=== PATIENT | female | born 1945 | race Caucasian/White ===

== ENCOUNTER 2022-09-02 09:27 | Outpatient (OUT) | payer MEDICARE, SELFPAY ==
--- NOTE | 2022-09-02 09:43 | XR_ITS ---
The [address] [address] Patient Name: ZACHARY MAYNARD MRN: [id number] date: 1945 Sex: F Assigned Patient Location: [facility] Current Patient Location: [facility] Accession/Order Number: [id number] Exam Date: 09/02/2022 09:45 Report Date: 09/02/2022 10:34 At the request of: ADINA BUNCH Procedure: XR ribs BI min 4V w CXR1V EXAMINATION: XR ribs BI min 4V w CXR1V HISTORY: Pleurodynia R07.81 ; acute posterior left rib pain since falling 2 days ago COMPARISON: XR chest 07/14/2020 FINDINGS: LUNGS: No significant pulmonary parenchymal abnormalities. PLEURA: No pneumothorax, effusion, or pleural thickening. MEDIASTINUM: No visible mass or adenopathy. CARDIAC: No cardiomegaly or cardiac silhouette abnormality. RIBS: Normal. No significant arthropathy or acute abnormality. OTHER: Negative. IMPRESSION: 1. Hyperexpanded lungs suggestive of mild COPD. 2. No appreciable acute cardiopulmonary process. 3. No visible rib fracture. Electronically authenticated by: RENATA GAYTAN Date: 09/02/2022 10:34
== END 2022-09-02 09:28 | disposition home or self-care (01) ==
LOC: RAD 09:30
PROVIDERS: PCP Family Medicine; Visit Provider Family Medicine
DX: R07.81 Pleurodynia (principal); J98.4 Other disorders of lung
CPT/HCPCS: 71111

== ENCOUNTER 2022-10-17 07:20 | Outpatient (OUT) | payer MEDICARE, SELFPAY ==
[2022-10-17 08:15] LABS: Estimated Average Glucose 114 mg/dL; Glycohemoglobin A1C 5.6 % (4.5-6.2)
[2022-10-17 08:22] LABS: Free Thyroxine Index 2.95 (1.30-4.50); Thyroid Stimulating Hormone 2.013 uIU/mL (0.358-3.740)
[2022-10-17 08:31] LABS: Basophils Percent Auto 0.5 % (0.2-2.0); Eosinophils Absolute Auto 0.2 10^3/uL (0.0-0.7); Eosinophils Percent Auto 2.5 % (0.9-7.0); Hematocrit 31.5 % (36.0-48.0); Hemoglobin 10.2 g/dL (12.0-16.0); Immature Granulocytes Abs Auto 0.06 10^3/uL (0.00-0.03); Immature Granulocytes Pct Auto 0.7 % (0.0-0.5); Lymphocytes Absolute Auto 2.2 10^3/uL (1.2-3.8); Lymphocytes Percent Auto 26.9 % (20.5-60.0); Mean Corpuscular HGB Conc 32.4 g/dL (29.9-35.2); Mean Corpuscular Hemoglobin 28.5 pg (26.7-34.0); Mean Platelet Volume 10.1 fL (9.5-13.5); Monocytes Absolute Auto 0.5 10^3/uL (0.3-0.8); Monocytes Percent Auto 6.3 % (1.7-12.0); Neutrophils Absolute Auto 5.2 10^3/uL (1.4-6.5); Neutrophils Percent Auto 63.1 % (43.0-75.0); Platelet Count 283 10^3/uL (150-450); Red Blood Count 3.58 10^6/uL (4.20-5.40); Red Cell Distribution Width 16.9 % (11.0-15.0); White Blood Count 8.2 10^3/uL (4.0-11.0)
== END 2022-10-17 07:21 | disposition home or self-care (01) ==
PROVIDERS: PCP Family Medicine; Visit Provider Family Medicine
DX: E11.9 Type 2 diabetes mellitus without complications (principal); R73.09 Other abnormal glucose; D64.9 Anemia, unspecified
CPT/HCPCS: 36415; 82728; 83036; 83540; 84436; 84443; 84479; 85025

== ENCOUNTER 2022-10-25 10:09 | Outpatient (OUT) | payer MEDICARE, SELFPAY ==
[2022-10-25 11:08] LABS: Alanine Aminotransferase 19 U/L (14-59); Albumin Level 3.3 g/dL (3.4-5.0); Alkaline Phosphatase 75 U/L (46-116); Anion Gap 10.5; Aspartate Amino Transferase 14 U/L (15-37); BUN Creatinine Ratio 23.5; Bilirubin Total 0.5 mg/dL (0.2-1.0); Calcium 9.2 mg/dL (8.5-10.1); Carbon Dioxide 31.1 mmol/L (21.0-32.0); Chloride 100 mmol/L (98-107); Estimated GFR (African America >60 (>=60); Estimated GFR (Non-African Ame 55 (>=60); Globulin 3.2 g/dL; Glucose 96 mg/dL (74-106); Potassium 3.6 mmol/L (3.5-5.1); Sodium 138 mmol/L (136-145); Total Protein 6.5 g/dL (6.4-8.2)
[2022-10-25 11:09] LABS: INR 0.94; Partial Thromboplastin Time 28.1 sec (22.3-36.2)
[2022-10-25 11:36] LABS: Thyroid Stimulating Hormone 1.247 uIU/mL (0.358-3.740)
[2022-10-25 12:01] LABS: Basophils Absolute Auto 0.1 10^3/uL (0.0-0.1); Basophils Percent Auto 0.7 % (0.2-2.0); Eosinophils Absolute Auto 0.2 10^3/uL (0.0-0.7); Eosinophils Percent Auto 2.1 % (0.9-7.0); Hematocrit 34.6 % (36.0-48.0); Immature Granulocytes Abs Auto 0.07 10^3/uL (0.00-0.03); Immature Granulocytes Pct Auto 0.8 % (0.0-0.5); Lymphocytes Percent Auto 21.6 % (20.5-60.0); Mean Corpuscular HGB Conc 31.8 g/dL (29.9-35.2); Mean Corpuscular Hemoglobin 28.6 pg (26.7-34.0); Mean Corpuscular Volume 90.1 fL (81.0-99.0); Mean Platelet Volume 11.2 fL (9.5-13.5); Monocytes Absolute Auto 0.8 10^3/uL (0.3-0.8); Monocytes Percent Auto 8.8 % (1.7-12.0); Neutrophils Absolute Auto 6.1 10^3/uL (1.4-6.5); Platelet Count 317 10^3/uL (150-450); Red Blood Count 3.84 10^6/uL (4.20-5.40); Red Cell Distribution Width 17.5 % (11.0-15.0); White Blood Count 9.2 10^3/uL (4.0-11.0)
[2022-10-25 12:23] LABS: Estimated Average Glucose 117 mg/dL; Glycohemoglobin A1C 5.7 % (4.5-6.2)
== END 2022-10-25 10:10 | disposition home or self-care (01) ==
LOC: LAB 10:11
PROVIDERS: PCP Family Medicine; Visit Provider Family Medicine
DX: R23.8 Other skin changes (principal)
CPT/HCPCS: 36415; 80053; 82728; 83036; 83540; 84439; 84443; 85002; 85025; 85610; 85730

== ENCOUNTER 2023-05-14 08:50 | Outpatient (RCR) | payer MEDICARE, SELFPAY | END 2023-05-21 11:30 | disposition home or self-care (01) | LOC: OT 08:50 | PROVIDERS: PCP Family Medicine; Visit Provider Orthopaedic Surgery | DX: Z98.890 Other specified postprocedural states (principal) | CPT/HCPCS: 97018; 97110; 97140; 97165; 97760 ==

== ENCOUNTER 2023-11-06 07:41 | Outpatient (RCR) | payer MEDICARE, SELFPAY | END 2023-11-07 15:47 | disposition home or self-care (01) | LOC: PT 07:41 | PROVIDERS: PCP Family Medicine; Visit Provider Family Medicine | DX: R42 Dizziness and giddiness (principal) | CPT/HCPCS: 97163 ==

== ENCOUNTER 2023-11-18 18:14 | Emergency (ER) | payer MEDICARE, SELFPAY ==
[2023-11-18 18:27] VITALS: BP 134/72; PULSE 71; TEMP 37.2; O2SAT 93; BMI 28.8
--- NOTE | 2023-11-18 19:09 | ECG_ITS ---
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
--- NOTE | 2023-11-18 19:19 | XR_ITS ---
The [address] [address] Patient Name: ZACHARY MAYNARD MRN: [id number] date: 1945 Sex: F Assigned Patient Location: ER Current Patient Location: ER Accession/Order Number: [id number] Exam Date: 11/18/2023 19:45 Report Date: 11/18/2023 20:51 At the request of: GABBY RYAN Procedure: XR chest 1V EXAMINATION: XR chest 1V, , 11/18/2023 7:45 PM EDT INDICATION: weak HISTORY: Ordering Provider Reason for Exam: weak Technologist Note: Additional: COMPARISON: None. TECHNIQUE: Chest x-ray: One view. FINDINGS: No pneumothorax, pleural effusion or focal airspace consolidation. Heart is normal in size. Bony thorax is unremarkable. XR/XR chest 1V IMPRESSION: No acute cardiopulmonary process. Electronically authenticated by: CHELE AYALA Date: 11/18/2023 20:51
--- NOTE | 2023-11-18 19:20 | ED.GENADUL1 ---
HPI HPI - General Adult General Chief complaint: Nausea/Vomiting/Diarrhea Stated complaint: Dizziness, General Weakness Time Seen by Provider: 11/18/23 18:35 Source: patient Mode of arrival: walk-in History of Present Illness HPI narrative: 78-year-old female presents to the emergency department for not feeling well. She states her whole body hurts and she has been weak and she threw up this morning. She has a very mild posterior headache, no trauma and no fever. No syncope or palpitations and she does not complain to me of chest pain or abdominal pain. No dysuria or hematuria. She has not really eaten or drank anything today. Related Data Previous Rx's ?Medication ?Instructions ?Recorded ondansetron 4 mg disintegrating 4 mg PO Q6H PRN nausea and 11/18/23 tablet vomiting #20 tabs Allergies Allergy/AdvReac Type Severity Reaction Status Date / Time meperidine [From Demerol] AdvReac Severe Anaphylaxis Verified 11/18/23 18:27 Opioid HPI Opioid Management Most Recent Opioid Data: No Data to Display Review of Systems ROS Narrative A ten point review of systems is negative except as noted above. PFSH PFSH Social History Little interest or pleasure in doing things: not at all Feeling down, depressed, or hopeless: not at all Exam Narrative Exam Narrative: Nurses note and vital signs reviewed and patient is not hypoxic. General: The patient appears in no apparent distress. She seems to prefer to keep her eyes closed. Skin: Warm, dry, no pallor noted. There is no rash noted. Head: Normocephalic, atraumatic Eye: Normal conjunctiva, no drainage Ears, Nose, Mouth, and Throat: oral mucosa is moist. Nares patent. Cardiovascular: Regular Rate and Rhythm Respiratory: Patient is in no distress, no accessory muscle use, lungs are clear to auscultation, no wheezing, rales or rhonchi Back: non-tender GI: Soft and no apparent tenderness Musculoskeletal: The patient has no evidence of calf tenderness, no pitting edema, symmetrical pulses noted bilaterally Neurological: A&O, normal speech Psychiatric: Cooperative Constitutional Vital Signs, click to edit/add: Last Vital Signs Temp 98.9 F 11/18/23 18:27 Pulse 124 H 11/18/23 21:10 Resp 17 11/18/23 21:10 BP 132/102 H 11/18/23 21:10 Pulse Ox 94 L 11/18/23 21:10 O2 Del Method Room Air 11/18/23 21:10 Course Vital Signs Vital signs: Vital Signs Temperature 98.9 F 11/18/23 18:27 Pulse Rate 71 11/18/23 18:27 Respiratory Rate 18 11/18/23 18:27 Blood Pressure 134/72 11/18/23 18:27 Pulse Oximetry 93 L 11/18/23 18:27 Oxygen Delivery Method Room Air 11/18/23 18:27 Temperature 98.9 F 11/18/23 18:27 Pulse Rate 124 H 11/18/23 21:10 Respiratory Rate 17 11/18/23 21:10 Blood Pressure 132/102 H 11/18/23 21:10 Pulse Oximetry 94 L 11/18/23 21:10 Oxygen Delivery Method Room Air 11/18/23 21:10 Medical Decision Making MDM Narrative Medical decision making narrative: The patient's laboratory workup is negative. COVID test negative and she is feeling much better after being given some IV fluids and IV Zofran. She is tolerating p.o. liquids and some food and feels good to go home. She had some brief episodes of fast heartbeat and she was advised follow-up with her PCP regarding that issue. They seem to be asymptomatic. Treatment diagnosis and follow-up were discussed with the patient and her family. Differential Diagnosis Differential Diagnosis: Dehydration, acute kidney injury, COVID, viral gastroenteritis Lab Data Lab results reviewed: Yes I reviewed the patient's lab results Labs: Lab Results 11/18/23 11/18/23 11/18/23 Range/Units 19:30 19:33 19:35 WBC 14.6 H (4.0-11.0) 10^3/uL RBC 3.89 L (4.20-5.40) 10^6/uL Hgb 10.9 L (12.0-16.0) g/dL Hct 34.4 L (36.0-48.0) % MCV 88.4 (81.0-99.0) fL MCH 28.0 (26.7-34.0) pg MCHC 31.7 (29.9-35.2) g/dL RDW 15.9 H (11.0-15.0) % Plt Count 237 (150-450) 10^3/uL MPV 10.7 (9.5-13.5) fL Neut % (Auto) 80.0 H (43.0-75.0) % Lymph % (Auto) 11.1 L (20.5-60.0) % [place] % (Auto) 5.9 (1.7-12.0) % Eos % (Auto) 0.9 (0.9-7.0) % Baso % (Auto) 0.3 (0.2-2.0) % Neut # (Auto) 11.7 H (1.4-6.5) 10^3/uL Lymph # (Auto) 1.6 (1.2-3.8) 10^3/uL [place] # (Auto) 0.9 H (0.3-0.8) 10^3/uL Eos # (Auto) 0.1 (0.0-0.7) 10^3/uL Baso # (Auto) 0.1 (0.0-0.1) 10^3/uL Abs Immat Gran (auto) 0.27 H (0.00-0.03) 10^3/uL Imm/Tot Granulo (auto) 1.8 H (0.0-0.5) % Sodium 137 (136-145) mmol/L Potassium 3.7 (3.5-5.1) mmol/L Chloride 98 (98-107) mmol/L Carbon Dioxide 31.6 (21.0-32.0) mmol/L Anion Gap 11.1 BUN 31.0 H (7.0-18.0) mg/dL Creatinine 1.25 H (0.55-1.02) mg/dL Est GFR ( Amer) 50 L (>=60) Est GFR (Non-Af Amer) 41 L (>=60) BUN/Creatinine Ratio 24.8 Glucose 102 (74-106) mg/dL Calcium 9.4 (8.5-10.1) mg/dL Total Bilirubin 0.8 (0.2-1.0) mg/dL AST 9 L (15-37) U/L ALT 13 L (14-59) U/L Alkaline Phosphatase 93 (46-116) U/L Troponin I High Sens 8.8 (4.0-51.3) pg/mL Total Protein 6.1 L (6.4-8.2) g/dL Albumin 3.1 L (3.4-5.0) g/dL Globulin 3.0 g/dL Albumin/Globulin Ratio 1.0 Urine Color Lt. yellow (YELLOW) Urine Clarity Clear (CLEAR) Urine pH 7.0 (5.0-9.0) Ur Specific [place] 1.020 (1.005-1.025) Urine Protein Negative (NEG/TRACE) mg/dL Urine Glucose (UA) >=1000 A (NEGATIVE) mg/dL Urine Ketones Negative (NEGATIVE) mg/dL Urine Occult Blood Negative (NEGATIVE) Urine Nitrite Negative (NEGATIVE) Urine Bilirubin Negative (NEGATIVE) Urine Urobilinogen 0.2 (0.2-1.0) EU/dL Ur Leukocyte Esterase Negative (NEGATIVE) Urine RBC None seen (0-2) #/HPF Urine WBC 0-2 A (NONE SEEN) #/HPF Ur Squamous Epith Cells Rare (NONE/RARE) #/LPF Urine Crystals None seen (None Seen) #/HPF Urine Bacteria Trace A (NONE SEEN) #/HPF Urine Casts None seen (NONE SEEN) #/LPF Urine Mucus None seen (NONE SEEN) SARS-CoV-2 Ag (CV2AG) Negative (NEGATIVE) Imaging Data Chest x-ray: Radiologist's impression: ITS Impressions Chest X-Ray 11/18/23 19:19 IMPRESSION: No acute cardiopulmonary process. Electronically authenticated by: CHELE AYALA Date: 11/18/2023 20:51 ECG Data Attestation: I personally reviewed and interpreted this ECG as follows: (First EKG on my interpretation shows sinus rhythm with rate of 72 and occasional PAC. Second EKG showed tachycardia with a rate of 116) Discharge Plan Discharge Chief Complaint: Nausea/Vomiting/Diarrhea Clinical Impression: Nausea & vomiting Patient Disposition: Home, Self-Care Time of Disposition Decision: 22:23 Condition: Good Mode of Transportation: Private Vehicle Prescriptions / Home Meds: New ondansetron 4 mg tablet,disintegrating 4 mg PO Q6H PRN (Reason: nausea and vomiting) Qty: 20 0RF Print Language: Nepali Instructions: Acute Nausea and Vomiting (ED) Additional Instructions: Follow-up with Dr. Langley regarding the short episodes of fast heartbeat. Referrals: Velasquez Langley MD [Primary Care Provider] - 1 week
[2023-11-18] MEDS: ONDANSETRON PF 4 MG/2 ML VIAL IV (19:41)
[2023-11-18] MEDS: 0.9 % SODIUM CHLORIDE 500 ML IV ×2 (19:41→21:41)
[2023-11-18 20:07] LABS: Basophils Absolute Auto 0.1 10^3/uL (0.0-0.1); Basophils Percent Auto 0.3 % (0.2-2.0); Eosinophils Absolute Auto 0.1 10^3/uL (0.0-0.7); Eosinophils Percent Auto 0.9 % (0.9-7.0); Hematocrit 34.4 % (36.0-48.0); Hemoglobin 10.9 g/dL (12.0-16.0); Immature Granulocytes Abs Auto 0.27 10^3/uL (0.00-0.03); Immature Granulocytes Pct Auto 1.8 % (0.0-0.5); Lymphocytes Absolute Auto 1.6 10^3/uL (1.2-3.8); Lymphocytes Percent Auto 11.1 % (20.5-60.0); Mean Corpuscular HGB Conc 31.7 g/dL (29.9-35.2); Mean Corpuscular Volume 88.4 fL (81.0-99.0); Mean Platelet Volume 10.7 fL (9.5-13.5); Monocytes Absolute Auto 0.9 10^3/uL (0.3-0.8); Monocytes Percent Auto 5.9 % (1.7-12.0); Neutrophils Absolute Auto 11.7 10^3/uL (1.4-6.5); Platelet Count 237 10^3/uL (150-450); Red Blood Count 3.89 10^6/uL (4.20-5.40); Red Cell Distribution Width 15.9 % (11.0-15.0); White Blood Count 14.6 10^3/uL (4.0-11.0)
[2023-11-18 20:15] LABS: Alanine Aminotransferase 13 U/L (14-59); Albumin Level 3.1 g/dL (3.4-5.0); Alkaline Phosphatase 93 U/L (46-116); Anion Gap 11.1; Aspartate Amino Transferase 9 U/L (15-37); BUN Creatinine Ratio 24.8; Bilirubin Total 0.8 mg/dL (0.2-1.0); Calcium 9.4 mg/dL (8.5-10.1); Carbon Dioxide 31.6 mmol/L (21.0-32.0); Chloride 98 mmol/L (98-107); Estimated GFR (African America 50 (>=60); Estimated GFR (Non-African Ame 41 (>=60); Glucose 102 mg/dL (74-106); Potassium 3.7 mmol/L (3.5-5.1); Sodium 137 mmol/L (136-145); Total Protein 6.1 g/dL (6.4-8.2); Troponin I High Sensitivity 8.8 pg/mL (4.0-51.3)
--- NOTE | 2023-11-18 20:21 | PC.NURSE ---
Pt is a diabetic. Pt has own blood glucose monitor. Pt checked blood glucose and result 109.
[2023-11-18 20:24] LABS: Internal Control Within Normal Limits; SARS-CoV-2 Ag NEGATIVE (NEGATIVE)
[2023-11-18 20:26] LABS: Bilirubin Urine NEGATIVE (NEGATIVE); Blood Urine NEGATIVE (NEGATIVE); Clarity Urine CLEAR (CLEAR); Color Urine LT. YELLOW (YELLOW); Glucose Urine UA >=1000 mg/dL (NEGATIVE); Ketones Urine NEGATIVE (NEGATIVE); Leukocyte Esterase Urine NEGATIVE (NEGATIVE); Nitrite Urine NEGATIVE (NEGATIVE); Protein Urine NEGATIVE (NEG/TRACE); Urobilinogen Urine 0.2 EU/dL (0.2-1.0)
[2023-11-18 20:50] LABS: Squamous Epithelial Cell Urine RARE #/LPF (NONE/RARE)
[2023-11-18 20:51] LABS: Bacteria Urine TRACE #/HPF (NONE SEEN); Cast Seen? NONE SEEN #/LPF (NONE SEEN); Crystals Seen? None Seen #/HPF (None Seen); Mucus Urine NONE SEEN (NONE SEEN); RBC Urine NONE SEEN #/HPF (0-2); WBC Urine 0-2 #/HPF (NONE SEEN)
--- NOTE | 2023-11-18 21:06 | ECG_ITS ---
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
[2023-11-18 21:10] VITALS: BP 132/102; PULSE 124; O2SAT 94
[2023-11-18 22:33] VITALS: BP 130/99
== END 2023-11-18 22:50 | disposition home or self-care (01) ==
PROVIDERS: Emergency Medicine; Emergency Provider Emergency Medicine; PCP Family Medicine
DX: R11.2 Nausea with vomiting, unspecified (principal); Z20.822 Contact with and (suspected) exposure to COVID-19
CPT/HCPCS: 36415; 71045; 80053; 81001; 84484; 85025; 87811; 93005; 96374; 99285; J2405

== ENCOUNTER 2023-11-19 14:12 | Outpatient (OUT) | payer MEDICARE, SELFPAY | END 2023-11-19 14:13 | disposition home or self-care (01) | LOC: CARD 14:15 | PROVIDERS: PCP Family Medicine; Visit Provider Family Medicine | DX: R00.0 Tachycardia, unspecified (principal) | CPT/HCPCS: 93246 ==

== ENCOUNTER 2023-11-23 15:16 | Emergency (ER) | payer MEDICARE, SELFPAY ==
[2023-11-23 15:17] VITALS: BP 167/81; PULSE 76; TEMP 37.3; O2SAT 98; BMI 61.7
--- NOTE | 2023-11-23 15:22 | XR_ITS ---
The [address] [address] Patient Name: ZACHARY MAYNARD MRN: [id number] date: 1945 Sex: F Assigned Patient Location: ER Current Patient Location: ER Accession/Order Number: [id number] Exam Date: 11/23/2023 15:41 Report Date: 11/23/2023 16:53 At the request of: WENDY DWYER Procedure: XR chest 2V EXAM: XR chest 2V , 11/23/2023 HISTORY: cough, influenza COMPARISON: X-ray of the chest from 11/18/2023 TECHNIQUE: X-rays of the chest, frontal and lateral views in upright position. FINDINGS: Mild enlargement of the cardiac silhouette. Moderate atherosclerotic calcification of the aortic arch. Bilateral basal atelectasis. No focal consolidation or pulmonary edema. Right lower lobe nodular density, likely nipple shadow. Mild degenerative changes thoracic spine. No acute osseous findings. Multiple overlying monitoring leads and wires. XR/XR chest 2V IMPRESSION: No focal consolidation or pulmonary edema. Electronically authenticated by: RUFINA FENG Date: 11/23/2023 16:53
--- NOTE | 2023-11-23 15:22 | ECG_ITS ---
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
--- NOTE | 2023-11-23 15:24 | ED.GENADUL1 ---
HPI HPI - General Adult General Chief complaint: Upper Respiratory Infection Stated complaint: FLU Time Seen by Provider: 11/23/23 15:19 Source: patient Mode of arrival: ambulance Limitations: no limitations History of Present Illness HPI narrative: 78-year-old female presents to the ER via EMS for evaluation of cough, rib pain and generalized weakness. Patient states she began her illness 1 week ago, had a test on Friday that was positive for influenza and has been taking a Zithromax prescription without relief. She denies nausea vomiting or diarrhea. Patient has a harsh nonproductive cough and rib pain present with coughing. Patient suspects dehydration with generalized weakness as she has decreased p.o. intake as she is just not thirsty or hungry. Patient wearing a security monitor states she had a labile heart rate but does not remember the specifics of why they put it on her. She denies any blood thinner use. Patient sitting up speaking in full sentences but appears generally fatigued. Chest discomfort is only present with coughing which she describes as rib pain. Related Data Home Medications ?Medication ?Instructions ?Recorded ?Confirmed albuterol sulfate 90 mcg/actuation inhalation 11/23/23 aerosol inhaler azithromycin 250 mg tablet mg 11/23/23 benzonatate 200 mg capsule mg PO 11/23/23 doxycycline hyclate 100 mg capsule mg 11/23/23 ezetimibe 10 mg tablet mg 11/23/23 hydrochlorothiazide 25 mg tablet mg 11/23/23 hydroxyzine HCl 25 mg tablet mg 11/23/23 meclizine 25 mg tablet mg 11/23/23 ropinirole 0.5 mg tablet mg 11/23/23 tiotropium bromide 18 mcg capsule inhalation 11/23/23 with inhalation device Previous Rx's ?Medication ?Instructions ?Recorded ondansetron 4 mg disintegrating 4 mg PO Q6H PRN nausea and 11/18/23 tablet vomiting #20 tabs Allergies Allergy/AdvReac Type Severity Reaction Status Date / Time meperidine [From Demerol] AdvReac Severe Anaphylaxis Verified 11/23/23 15:22 Opioid HPI Opioid Management Most Recent Opioid Data: Last APR Pain Assessment 11/23/23 15:48 Review of Systems ROS Constitutional Reports: fever Ears, nose, mouth, and throat Reports: nasal congestion; Denies: throat pain or neck pain Cardiovascular Reports: chest pain (Only with coughing) Respiratory Reports: shortness of breath, cough and chest congestion Gastrointestinal Denies: abdominal pain, nausea, vomiting or diarrhea Genitourinary Denies: painful urination Musculoskeletal Denies: back pain, neck pain or extremity pain Integumentary/Breast Denies: rash or itching Neurological Denies: headache or numbness in extremities Psychiatric Denies: anxiety or mood swings Endocrine Denies: excessive urination Hematologic/Lymphatic Denies: easy bruising PFSH PFSH Social History Little interest or pleasure in doing things: not at all Feeling down, depressed, or hopeless: not at all Exam Narrative Exam Narrative: Nurses notes and vital signs reviewed and patient is not hypoxic. General: The patient appears well, but generally fatigued. Patient is resting comfortably on cart. Skin: Warm, dry, no pallor noted. No evidence of rash Head: Normocephalic, atraumatic Neck: Supple, trachea mid-line, no tenderness, no lymphadenopathy Eye: Pupils are equal, round and reactive to light, EOMI Ears, Nose, Mouth, and Throat: TM are clear, normal light reflex, oral mucosa is moist, no posterior oropharynx erythema or hypertrophy, uvula is mid-line postnasal drainage Cardiovascular: Regular Rate and Rhythm Respiratory: Patient is in no distress, no accessory muscle use, lungs are clear to auscultation, no wheezing, rales or rhonchi. Chest Wall: no tenderness cardiac monitoring device noted mid chest Back: non-tender, no CVA tenderness Musculoskeletal: normal ROM, no tenderness, no swelling GI: Normal bowel sounds, no tenderness to palpation, no masses appreciated. No rebound, guarding, or rigidity noted. Neurological: A&O x4 Psychiatric: Cooperative Constitutional Vital Signs, click to edit/add: Last Vital Signs Temp 99.1 F 11/23/23 15:17 Pulse 76 11/23/23 15:17 Resp 24 H 11/23/23 15:17 BP 167/81 H 11/23/23 15:17 Pulse Ox 98 11/23/23 15:17 O2 Del Method Room Air 11/23/23 15:17 Course Vital Signs Vital signs: Vital Signs Temperature 99.1 F 11/23/23 15:17 Pulse Rate 76 11/23/23 15:17 Respiratory Rate 24 H 11/23/23 15:17 Blood Pressure 167/81 H 11/23/23 15:17 Pulse Oximetry 98 11/23/23 15:17 Oxygen Delivery Method Room Air 11/23/23 15:17 Temperature 99.1 F 11/23/23 15:17 Pulse Rate 76 11/23/23 15:17 Respiratory Rate 24 H 11/23/23 15:17 Blood Pressure 167/81 H 11/23/23 15:17 Pulse Oximetry 98 11/23/23 15:17 Oxygen Delivery Method Room Air 11/23/23 15:17 Medical Decision Making MDM Narrative Medical decision making narrative: Patient presents 7 days into upper respiratory influenza-like illness, patient concerned with dehydration as she has not been eating or drinking secondary to her illness. Patient has been taking Zithromax per PCP. She denies any history of pulmonary disease. Patient admits that she herself did not want to come to the hospital she lives with her and surrounding family encouraged her to get evaluated with weakness. Patient reevaluated, cough has lessened since medication. She reports feeling more comfortable, clinically she appears more alert and relaxed. She is taking potassium supplement. Family states she has been drinking mostly Sprite at home. We discussed trying Gatorade or electrolyte solution and small but frequent quantities. Patient chest x-ray without evidence of infiltrate. Her heart rate has maintained stable during her stay. She is finishing her second liter of IV fluids and will be given a dose of Zofran as she finishes her potassium pending providing us a urine sample. Will be given a p.o. challenge to follow. anemia likely dehydration, pt denies any dark stool of blood per rectum. Pt ambulated well to bathroom for urine sample. reports feeling better after fluids. ready for DC home. pt taking po fluids here as well per RN. The patient is to followup with primary care physician in next 2-3 days or to return to the emergency department should any of the signs or symptoms worsen or new symptoms develop. Patient had questions answered. The patient agrees with the following Diagnosis and Treatment plan and the patient will be discharged home. SHARED APC VISIT, PHYSICIAN ATTESTATION: [id number] I performed a substantive part of the MDM during the patient?s E/M visit. I personally evaluated and examined the patient. I personally made or approved the documented management plan and acknowledge its risk of complications. My (EKG/X-Ray/US/CT) interpretation . Management/test interpretation discussed with . Medical Records Medical records reviewed: Yes I reviewed the patient's medical records Medical records narrative: Previous visit and laboratory studies. Lab Data Lab results reviewed: Yes I reviewed the patient's lab results Labs: Lab Results 11/23/23 11/23/23 Range/Units 16:07 17:22 WBC 8.5 (4.0-11.0) 10^3/uL RBC 3.41 L (4.20-5.40) 10^6/uL Hgb 9.7 L (12.0-16.0) g/dL Hct 30.2 L (36.0-48.0) % MCV 88.6 (81.0-99.0) fL MCH 28.4 (26.7-34.0) pg MCHC 32.1 (29.9-35.2) g/dL RDW 15.8 H (11.0-15.0) % Plt Count 239 (150-450) 10^3/uL MPV 10.2 (9.5-13.5) fL Neut % (Auto) 63.1 (43.0-75.0) % Lymph % (Auto) 23.4 (20.5-60.0) % [place] % (Auto) 9.2 (1.7-12.0) % Eos % (Auto) 2.6 (0.9-7.0) % Baso % (Auto) 0.6 (0.2-2.0) % Neut # (Auto) 5.3 (1.4-6.5) 10^3/uL Lymph # (Auto) 2.0 (1.2-3.8) 10^3/uL [place] # (Auto) 0.8 (0.3-0.8) 10^3/uL Eos # (Auto) 0.2 (0.0-0.7) 10^3/uL Baso # (Auto) 0.1 (0.0-0.1) 10^3/uL Abs Immat Gran (auto) 0.09 H (0.00-0.03) 10^3/uL Imm/Tot Granulo (auto) 1.1 H (0.0-0.5) % Sodium 136 (136-145) mmol/L Potassium 2.9 L* (3.5-5.1) mmol/L Chloride 100 (98-107) mmol/L Carbon Dioxide 33.4 H (21.0-32.0) mmol/L Anion Gap 5.5 BUN 25.0 H (7.0-18.0) mg/dL Creatinine 1.41 H (0.55-1.02) mg/dL Est GFR ( Amer) 43 L (>=60) Est GFR (Non-Af Amer) 36 L (>=60) BUN/Creatinine Ratio 17.7 Glucose 105 (74-106) mg/dL Lactate 1.0 (0.4-2.0) mmol/L Calcium 8.9 (8.5-10.1) mg/dL Total Bilirubin 0.6 (0.2-1.0) mg/dL AST 11 L (15-37) U/L ALT 16 (14-59) U/L Alkaline Phosphatase 82 (46-116) U/L Troponin I High Sens 8.5 (4.0-51.3) pg/mL NT-Pro-B Natriuret Pep 487.0 (<=1800.0) pg/mL Total Protein 5.8 L (6.4-8.2) g/dL Albumin 2.4 L (3.4-5.0) g/dL Globulin 3.4 g/dL Albumin/Globulin Ratio 0.7 Urine Color Lt. yellow (YELLOW) Urine Clarity Clear (CLEAR) Urine pH 6.0 (5.0-9.0) Ur Specific [place] 1.015 (1.005-1.025) Urine Protein Negative (NEG/TRACE) mg/dL Urine Glucose (UA) Negative (NEGATIVE) mg/dL Urine Ketones Negative (NEGATIVE) mg/dL Urine Occult Blood Negative (NEGATIVE) Urine Nitrite Negative (NEGATIVE) Urine Bilirubin Negative (NEGATIVE) Urine Urobilinogen 0.2 (0.2-1.0) EU/dL Ur Leukocyte Esterase Negative (NEGATIVE) Imaging Data Chest x-ray: Radiologist's impression: ITS Impressions Chest X-Ray 11/23/23 15:22 IMPRESSION: No focal consolidation or pulmonary edema. Electronically authenticated by: RUFINA FENG Date: 11/23/2023 16:53 ECG Data Attestation: I personally reviewed and interpreted this ECG as follows: Interpretation: EKG interpretation: Emergency Department physician interpretation, normal sinus rhythm 80, no ectopy, no ST segment elevation, normal axis. Discharge Plan Discharge Chief Complaint: Upper Respiratory Infection Clinical Impression: Influenza, Upper respiratory infection, Dehydration Patient Disposition: Home, Self-Care Time of Disposition Decision: 17:45 Condition: Good Prescriptions / Home Meds: No Action ondansetron 4 mg tablet,disintegrating 4 mg PO Q6H PRN (Reason: nausea and vomiting) Qty: 20 0RF doxycycline hyclate 100 mg capsule azithromycin 250 mg tablet benzonatate 200 mg capsule PO meclizine 25 mg tablet ropinirole 0.5 mg tablet hydroxyzine HCl 25 mg tablet hydrochlorothiazide 25 mg tablet albuterol sulfate 90 mcg/actuation HFA aerosol inhaler INHALATION ezetimibe 10 mg tablet tiotropium bromide 18 mcg capsule, w/inhalation device INHALATION Print Language: Upper Sorbian Instructions: Dehydration (ED) Referrals: Velasquez Langley MD [Primary Care Provider] - As soon as possible
--- OUTSIDE RECORDS SUMMARY | 2023-11-23 15:24 | XMS_ITS | CCD ---
Author Organization [facility] Care Team Providers Care Hot Car Operator Name Role Phone ADINA BUNCH Unavailable Unavailable DALTON, RACHAEL K Unavailable Unavailable ALTON, MICHELLE Unavailable Unavailable ALTON, MICHELLE Unavailable Unavailable Adina Bunch Primary Care Provider JUDIE, DUGLAS S Admitting Unavailable JUDIE, DUGLAS S Attending Unavailable ADINA BUNCH Primary Care Unavailable JAMISON GALO Consulting Unavailable JUDIE, DUGLAS S Consulting Unavailable ABEL RICHARD Consulting Unavailable CHIRRI, JIMMY Consulting Unavailable KENDRICK, VENITA Consulting Unavailable DEMETER, FLORY H Consulting Unavailable SANTACROCE, MIREILLE Consulting Unavailable JULIO C ., DR HOLDEN Admitting Unavailable HOY ., DR HOLDEN Attending Unavailable HOY ., DR HOLDEN Primary Care Unavailable HOY ., DR HOLDEN Consulting Unavailable Renata Gaytan Consulting Unavailable HOY ., DR HOLDEN Admitting Unavailable HOY ., DR HOLDEN Attending Unavailable HOY ., DR HOLDEN Primary Care Unavailable HOY ., DR HOLDEN Consulting Unavailable HOY ., DR HOLDEN Admitting Unavailable HOY ., DR HOLDEN Attending Unavailable HOY ., DR HOLDEN Primary Care Unavailable HOY ., DR HOLDEN Admitting Unavailable HOY ., DR HOLDEN Attending Unavailable HOY ., DR HOLDEN Primary Care Unavailable HOY ., DR HOLDEN Admitting Unavailable MINALY ., DR HODLEN Attending Unavailable MINALY ., DR HOLDEN Primary Care Unavailable MD Adina Bunch Primary Care Provider MD Anju Lees Attending Provider CURRY LOVING Attending Unavailable CURRY LOVING Attending Unavailable WENDY OCHOA Attending Unavailable CURRY LOVING Attending Unavailable DENISHA KELLY Attending Unavailable Freddy, Anju R Admitting Unavailable Freddy Anju R Attending Unavailable Adina Bunch Primary Care Unavailable Adina Bunch Primary Care Unavailable Calvshahram, Anju R Admitting Unavailable Freddy Anju R Attending Unavailable Adina Bunch Primary Care Unavailable Freddy, Anju R Admitting Unavailable Kathi Leesen R Attending Unavailable Allergies Allergy Classification Reported Allergen(s) Allergy Type Date of Onset Reaction(s) Facility (7 sources) Adhesive Tape; 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: [Adhesive tape] Propensity to adverse reactions to drug 4 Unknown Reaction, Rash [place], [place] (4 sources) Ciprofloxacin Drug Allergy 8 Vomiting [place] (1 source) Hmg-Coa Reductase Inhibitors (Statins) Propensity to adverse reactions to drug 8 [place] (4 sources) Meperidine Drug Allergy 8 Anaphylaxis [place] (4 sources) moxifloxacin Drug Allergy 8 [place]aphylaxis [place] (4 sources) Nalbuphine Drug Allergy 8 Unknown Reaction, Itching [place] (4 sources) Promethazine Drug Allergy 8 Unknown Reaction [place] (1 source) Sulfonamides (Antibiotic) Propensity to adverse reactions to drug 8 [place] (2 sources) black walnut pollen extract Drug Allergy 4 [facility] (2 sources) Ciprofloxacin Drug Allergy 4 [facility] (2 sources) Levamisole Drug Allergy 4 [facility] (2 sources) Meperidine Drug Allergy 4 [facility] (2 sources) moxifloxacin Drug Allergy 4 [facility] (2 sources) Nalbuphine Drug Allergy 4 [facility] (1 source) Sulfonamides (Antibiotic) Drug allergy (disorder) 7 [facility] (4 sources) Sulfacetamide; 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: [sulfacetamide] Drug Allergy 4 Unknown Reaction, Itching [facility] (4 sources) Sulfur; 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: [sulfur] Drug Allergy [address] [facility] (4 sources) Bteqwyh-QNQ-IeD Reductase Inhibitor; 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: [Kgkqpcz-MXP-MsH Reductase Inhibitor] Allergy to substance [address] [facility] (1 source) Ciprofloxacin Drug Allergy 4 [facility] (1 source) Meperidine Drug Allergy 4 [facility] (1 source) moxifloxacin Drug Allergy 4 [facility] (1 source) Nalbuphine Drug Allergy 4 [facility] (1 source) Promethazine Drug Allergy 4 [facility] Medications Current Medications Medication Drug Class(es) Dates Sig (Normalized) Sig (Original) acetaminophen 500 mg oral tablet (2 sources) Start: 04-17-2023 take 2 tablets by mouth every six hours Acetaminophen (Acetaminophen Extra Strength) 500 mg tablet Active 1000 MG PO Every 6 hours April 17, 2023 12:00am Start: 10-09-2019 acetaminophen (TYLENOL) tablet 650 mg acetaminophen 325 mg / butalbital 50 mg / caffeine 40 mg oral tablet (1 source) Barbiturate, Central Nervous System Stimulant, Methylxanthine Start: 10-10-2019 toacpcwlnl-tmpxmjxffwshz-ctd feine (FIORICET, ESGIC) per tablet 1 tablet [id number] 200 actuat albuterol 0.09 mg/actuat metered dose inhaler (3 sources) beta2-Adrenergi c Agonist Start: 04-08-2023 take 1 puff(s) by inhalation twice daily Albuterol Sulfate Active 2 PUFF INHALATION Twice daily April 08, 2023 12:00am Start: 04-08-2023 Albuterol Sulf ate Active INHALATION April 08, 2023 12:00am albuterol 0.833 mg/ml / ipratropium bromide 0.167 mg/ml inhalant solution (2 sources) Anticholinergic, beta2-Adrenergic Agonist Start: 10-11-2019 ipratropium-albuterol (DUONEB) nebulizer solution 1 ampule Start: 10-09-2019 End: 10-11-2019 1 ampule, Inhalation, EVERY 4 HOURS WHILE AWAKE, First dose on 10/09/19 at 1600 amLODIPine 10 mg oral tablet (5 sources) Dihydropyridine Calcium Channel Dodie Start: 06-29-2017 End: 10-10-2019 take 1 tablet by mouth once daily amLODIPine (NORVASC) 10 MG tablet Take 1 tablet by mouth daily 30 tablet 3 10/15/2019 Active aspirin 81 mg chewable tablet (2 sources) Platelet Aggregation Inhibitor, Nonsteroidal Anti-inflammatory Drug Start: 10-09-2019 take 1 tablet by mouth once daily aspirin 81 MG chewable tablet Take 1 tablet by mouth daily 30 tablet 3 10/16/2019 Active bisacodyl 10 mg rectal suppository (1 source) Stimulant Laxative Start: 10-16-2019 bisacodyl (DULCOLAX) suppository 10 mg calcium chloride 0.0014 meq/ml / potassium chloride 0.004 meq/ml / sodium chloride 0.103 meq/ml / sodium lactate 0.028 meq/ml injectable solution (1 source) Start: 10-09-2019 lactated ringers infusion diclofenac sodium 75 mg delayed release oral tablet (3 sources) Nonsteroidal Anti-inflammatory Drug Start: 04-08-2023 Diclofenac Sodium Active 75 MG PO .prn April 08, 2023 12:00am docusate sodium 100 mg oral capsule (2 sources) Start: 10-17-2019 End: 11-17-2019 take 2 capsules by mouth once daily docusate sodium (COLACE) 100 MG capsule Take 2 capsules by mouth daily 60 capsule 1 10/17/2019 11/17/2019 Active Start: 10-15-2019 docusate sodiu m (COLACE) capsule 200 mg empagliflozin 10 mg oral tablet (1 source) Sodium-Glucose Cotransporter 2 Inhibitor Start: 04-17-2023 take 1 tablet by mouth once daily Empagliflozin (Jardiance) 10 mg tablet Active 10 MG PO Daily April 17, 2023 12:00am if FSBS >200 0.4 ml enoxaparin sodium 100 mg/ml prefilled syringe (1 source) Low Molecular Weight Heparin Start: 10-09-2019 inject 40 mg by subcutaneous injection once daily 40 mg, Subcutaneous, DAILY, First dose on 10/09/19 at 1245 ezetimibe 10 mg oral tablet (5 sources) Dietary Cholesterol Absorption Inhibitor Start: 04-08-2023 take 1 tablet by mouth once daily at bedtime Ezetimibe (Zetia) 10 mg tablet Active 10 MG PO Daily at bedtime April 08, 2023 12:00am Start: 10-09-2019 take 10 mg by mouth once daily 10 mg, Oral, NIGHTLY, First dose on 10/09/19 at 2100 furosemide 20 mg oral tablet (3 sources) Loop Diuretic Start: 04-08-2023 take 20 mg by mouth once daily Furosemide Active 20 MG PO Daily April 08, 2023 12:00am glucagon (rdna) 1 mg injection (1 source) Antihypoglycemic Agent Start: 10-09-2019 glucago n (rDNA) injection 1 mg 150 ml glucose 50 mg/ml injection (3 sources) Start: 10-09-2019 dextrose 5 % solution Start: 10-09-2019 glucose (GLUTO SE) 40 % oral gel 15 g Start: 10-09-2019 dextrose 50 % IV solution hydrALAZINE hydrochloride 100 mg oral tablet (3 sources) Arteriolar Vasodilator Start: 10-15-2019 take 1 tablet by mouth every eight hours hydrALAZINE (APRESOLINE) 100 MG tablet Take 1 tablet by mouth every 8 hours 90 tablet 3 10/15/2019 Active Start: 10-12-2019 hydrALAZINE (A PRESOLINE) tablet 100 mg Start: 10-10-2019 hydrALAZINE (A PRESOLINE) injection 10 mg hydroCHLOROthiazide 25 mg oral tablet (3 sources) Thiazide Diuretic Start: 04-08-2023 take 25 mg by mouth once daily in the morning Hydrochlorothiazide Active 25 MG PO Every morning April 08, 2023 12:00am insulin lispro 100 unt/ml injectable solution (2 sources) Insulin Analog Start: 10-09-2019 insulin lispro (HUMALOG) injection vial 0-3 Units 1 ml ketorolac tromethamine 15 mg/ml cartridge (3 sources) Nonsteroidal Anti-inflammatory Drug, Cyclooxygenase Inhibitor Start: 10-15-2019 End: 10-20-2019 ketorolac (TORADOL) injection 15 mg Start: 10-09-2019 End: 10-11-2019 ketorolac (TORADOL) injectio n 15 mg labetalol (NORMODYNE;TRANDATE) injection syringe 10 mg (1 source) Start: 10-10-2019 labetalol (NORMODYNE;TRANDATE) injection syringe 10 mg lisinopril 40 mg oral tablet (4 sources) Angiotensin Converting Enzyme Inhibitor Start: 10-16-2019 take 1 tablet by mouth once daily lisinopril (PRINIVIL;ZESTRIL) 40 MG tablet Take 1 tablet by mouth daily 30 tablet 3 10/16/2019 Active Start: 10-11-2019 lisinopril (AK INIVIL;ZESTRIL) tablet 40 mg Start: 10-10-2019 End: 10-10-2019 lisinopril (PRINIVIL;ZESTRIL ) tablet 20 mg meclizine hydrochloride 25 mg oral tablet (7 sources) Antiemetic Start: 04-08-2023 take 25 mg by mouth once daily Meclizine Active 25 MG PO Daily April 08, 2023 12:00am Start: 10-15-2019 End: 10-25-2019 meclizine (ANTIVERT) tablet 12.5 mg Start: 10-09-2019 End: 10-09-2019 meclizine (ANTIVERT) tablet 25 mg 24 hr memantine hydrochloride 28 mg extended release oral capsule (3 sources) G-bowzgp-U-aspartate Receptor Antagonist Start: 04-08-2023 take 28 mg by mouth once daily in the morning Memantine Active 28 MG PO Every morning April 08, 2023 12:00am Start: 04-08-2023 Memantine Acti ve MG PO April 08, 2023 12:00am 24 hr metFORMIN hydrochloride 500 mg extended release oral tablet (3 sources) Biguanide Start: 04-08-2023 take 500 mg by mouth twice daily Metformin Active 500 MG PO Twice daily April 08, 2023 12:00am Start: 04-08-2023 Metformin Acti ve MG PO April 08, 2023 12:00am metoprolol tartrate 100 mg oral tablet (4 sources) beta-Adrenergic Dodie Start: 10-15-2019 take 1 tablet by mouth twice daily metoprolol tartrate (LOPRESSOR) 100 MG tablet Take 1 tablet by mouth 2 times daily 60 tablet 5 10/15/2019 Active Start: 10-09-2019 metoprolol tar trate (LOPRESSOR) tablet 100 mg Start: 10-09-2019 End: 10-09-2019 take 50 mg by mouth twice daily 50 mg, Oral, 2 TIMES D AILY, First dose on 10/09/19 at 1245 End: 10-15-2019 take 2 tablets by mouth twice daily metoprolol tartrate (LOPRESSOR) 50 MG tablet Take 100 mg by mouth 2 times daily 0 10/15/2019 Discontinued (REORDER) ondansetron (ZOFRAN-ODT) disintegrating tablet 4 mg (1 source) Start: 10-09-2019 ondansetron (ZOFRAN-ODT) disintegrating tablet 4 mg polyethylene glycol [id number] mg powder for oral solution (3 sources) Osmotic Laxative Start: 10-09-2019 End: 11-15-2019 take 17 g by mouth once daily polyethylene glycol (GLYCOLAX) 17 g packet Take 17 g by mouth daily 527 g 5 10/16/2019 11/15/2019 Active Potassium Chloride (2 sources) Start: 10-09-2019 potassium chlo ride (KLOR-CON M) extended release tablet 40 mEq Start: 10-09-2019 take 10 mL intravenous route every hour as needed 10 mEq, Intravenous, at 100 mL/hr, PRN, Potassium Replacement, Starting 10/09/19 at 1227 K Lab Replacement Action 3.1-3.5 10 mEq IVPB x 4 doses (40 mEq Total) 2.7-3.0 10 mEq IVPB x 6 doses (60 mEq Total) < 2.7 CALL PHYSICIAN and 10 mEq IVPB x 6 doses (60 mEq Total) Infuse at 10 mEq/hr. Repeat Potassium lab 1 hour after final administration. Not for use in patients with CrCl less than 30 mL/min. 3 ml sodium chloride 9 mg/ml injection (4 sources) Start: 10-15-2019 sodium chlorid e flush 0.9 % injection 10 mL Start: 10-11-2019 End: 10-11-2019 sodium chloride flush 0.9 % injection 10 mL Start: 10-09-2019 10 mL, Intrave nous, EVERY 12 HOURS SCHEDULED (2 times per day), First dose on 10/09/19 at 2100 Start: 10-09-2019 take 10 mL intraveno us route once as needed 10 mL, Intravenous, PRN, Line Care, After every IV line use, Starting 10/09/19 at 1227 spironolactone 100 mg oral tablet (4 sources) Aldosterone Antagonist Start: 10-11-2019 take 1 tablet by mouth once daily spironolactone (ALDACTONE) 100 MG tablet Take 1 tablet by mouth daily 30 tablet 3 10/16/2019 Active Start: 10-09-2019 End: 10-10-2019 spironolactone (ALDACTONE) t ablet 50 mg Vit C,D-Kk-Ybblj-Lutein-Zeax an (Preservision Areds-2) 250-90-40-1 mg capsule (1 source) Start: 04-17-2023 Vit C,R-Ty-Mqwuk-Lutein-Zeax an (Preservision Areds-2) 250-90-40-1 mg capsule Active 1 TAB PO Twice daily April 17, 2023 12:00am Completed/Discontinued Medications Medication Drug Class(es) Dates Sig (Normalized) Sig (Original) cloNIDine hydrochloride 0.1 mg oral tablet (2 sources) Central alpha-2 Adrenergic Agonist Start: 10-10-2019 End: 10-12-2019 cloNIDine (CATAPRES) tablet 0.1 mg Dupilumab (3 sources) Start: 04-08-2023 End: 04-17-2023 Dupilumab (Dupixent Pen) 200 mg/1.14 mL pen injector Discontinued 200 MG SUBCUT EVERY 2 WEEKS April 08, 2023 12:00am April 17, 2023 12:56pm Start: 04-08-2023 Dupilumab (Dup ixent Pen) 200 mg/1.14 mL pen injector Active 200 MG SUBCUT EVERY 2 WEEKS April 08, 2023 12:00am 2 ml fentaNYL 0.05 mg/ml injection (1 source) Opioid Agonist Start: 10-09-2019 End: 10-09-2019 fentaNYL (SUBLIMAZE) injection 50 mcg fluconazole 200 mg oral tablet (1 source) Azole Antifungal Start: 10-16-2019 End: 10-16-2019 fluconazole (DIFLUCAN) tablet 200 mg gadoteridol (PROHANCE) injection 12 mL (1 source) Start: 10-15-2019 End: 10-15-2019 gadoteridol (PROHANCE) injection 12 mL gadoteridol (PROHANCE) injection 13 mL (1 source) Start: 10-11-2019 End: 10-11-2019 gadoteridol (PROHANCE) injection 13 mL 1 ml haloperidol 5 mg/ml injection (1 source) Typical Antipsychotic Start: 10-09-2019 End: 10-09-2019 haloperidol lactate (HALDOL) injection 5 mg Start: 10-09-2019 End: 10-09-2019 haloperidol lactate (HALDOL) injection 5 mg Iohexol (2 sources) Radiographic Contrast Agent Start: 10-10-2019 End: 10-10-2019 iohexol (OMNIPAQUE 350) solution 90 mL Start: 10-09-2019 End: 10-09-2019 iohexol (OMNIPAQUE 350) solu tion 75 mL irbesartan 300 mg oral tablet (1 source) Angiotensin 2 Receptor Dodie End: 10-09-2019 take 1 tablet by mouth once daily irbesartan (AVAPRO) 300 MG tablet Take 300 mg by mouth daily 0 10/09/2019 Discontinued (LIST CLEANUP) LORazepam 2 mg oral tablet (1 source) Benzodiazepine Start: 10-11-2019 End: 10-11-2019 LORazepam (ATIVAN) tablet 2 mg 100 ml magnesium sulfate 10 mg/ml injection (1 source) Start: 10-10-2019 End: 10-10-2019 magnesium sulfate 1 g in dextrose 5% 100 mL IVPB methylPREDNISolone 125 mg injection (1 source) Corticosteroid Start: 10-10-2019 End: 10-10-2019 methylPREDNISolone sodium (SOLU-MEDROL) injection 250 mg 2 ml metoclopramide 5 mg/ml prefilled syringe (1 source) Dopamine-2 Receptor Antagonist Start: 10-10-2019 End: 10-11-2019 metoclopramide (REGLAN) injection 10 mg niCARdipine (CARDENE) 25 mg in dextrose 5 % 250 mL infusion (1 source) Start: 10-09-2019 End: 10-14-2019 niCARdipine (CARDENE) 25 mg in dextrose 5 % 250 mL infusion 2 ml ondansetron 2 mg/ml injection (2 sources) Serotonin-3 Receptor Antagonist Start: 10-09-2019 End: 10-09-2019 ondansetron (ZOFRAN) injection 4 mg Start: 10-09-2019 End: 10-09-2019 ondansetron (ZOFRAN) 4 MG/2M L injection potassium bicarbonate 20 meq effervescent oral tablet (1 source) Start: 10-12-2019 End: 10-12-2019 potassium bicarb-citric acid (EFFER-K) effervescent tablet 40 mEq valproate (DEPACON) 500 mg i n dextrose 5 % 100 mL IVPB (1 source) Start: 10-13-2019 End: 10-14-2019 valproate (DEPACON) 500 mg i n dextrose 5 % 100 mL IVPB Problems Active Problems Problem Classification Problem Date Documented Da te Episodic/Chronic Aortic; peripheral; and visceral artery aneurysms (3 sources) Abdominal aortic aneurysm without rupture; 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: [Aneurysm of infrarenal abdominal aorta ] Onset: 10-09-2019 10-09-2019 Chronic Conditions associated with dizziness or vertigo (6 sources) Dizziness and giddiness; 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: [Vertigo] Onset: 06-27-2017 Episodic Diabetes mellitus without complication (3 sources) Diabetes mellitus; 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: [Type 2 diabetes mellitus without complications] 04-08-2023 Chronic Disorders of lipid metabolism (4 sources) Hyperlipidemia; 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: [Hyperlipidemia, unspecified] Onset: 06-28-2017 06-28-2017 Chronic Essential hypertension (3 sources) Hypertensive disorder; 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: [Essential (primary) hypertension] 04-08-2023 Chronic Fluid and electrolyte disorders (2 sources) Hypokalemia; 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: [Hypokalemia] Onset: 10-13-2019 10-13-2019 Episodic Headache; including migraine (2 sources) Headache; 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: [Acute intractable headache] 10-10-2019 Episodic Hypertension with complications and secondary hypertension (4 sources) Hypertensive urgency ; 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: [Secondary hypertension] Onset: 06-28-2017 10-13-2019 Chronic Nausea and vomiting (1 source) Nausea and vomiting; 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: [Nausea and vomiting, intractability of vomiting not specified, unspecified vomiting type] Episodic Nutritional deficiencies (2 sources) Malnutrition (calorie); 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: [Moderate malnutrition (HCC)] Onset: 10-15-2019 10-15-2019 Chronic Other connective tissue disease (3 sources) Hand pain; 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: [Pain in right hand] 04-07-2023 Episodic Other connective tissue disease (6 sources) Triggering of digit; 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: [Trigger finger, right middle finger] 04-08-2023 Episodic Other connective tissue disease (4 sources) Trigger finger, right middle finger; 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: [Trigger finger (acquired)] Onset: 04-24-2023 04-08-2023 Episodic Other connective tissue disease (3 sources) Trigger finger, right ring finger; 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: [Trigger finger (acquired)] 04-08-2023 Episodic Other connective tissue disease (1 source) Pain in unspecified limb; 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: [Pain in unspecified limb] Onset: 04-24-2023 Episodic Other nervous system disorders (1 source) Other acute postprocedural pain; 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: [Other acute postprocedural pain] Onset: 04-24-2023 Episodic Peripheral and visceral atherosclerosis (2 sources) Stenosis of right renal artery; 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: [Right renal artery stenosis (HCC)] Onset: 10-13-2019 10-13-2019 Spondylosis; intervertebral disc disorders; other back problems (1 source) Acute low back pain; 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: [Acute low back pain, unspecified back pain laterality, unspecified whether sciatica present] Episodic Syncope (4 sources) Syncope and collapse; 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: [SYNCOPE AND COLLAPSE] Onset: 05-29-2022 Episodic Unclassified (1 source) Hypertensive urgency; 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: [Hypertensive urgency] Onset: 06-28-2017 Unclassified (3 sources) COUGH, UNSPECIFIED; 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: [COUGH, UNSPECIFIED] Onset: 02-09-2022 Unclassified (1 source) CONTACT W/AND (SUSP) EXPOS COVID-19; 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: [CONTACT W/AND (SUSP) EXPOS COVID-19] Onset: 02-09-2022 Unclassified (1 source) Trigger finger, right ring finger; 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: [Trigger finger, right ring finger] Onset: 04-24-2023 Unclassified (1 source) Encounter for preprocedural laboratory examination; 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: [Encounter for preprocedural laboratory examination] Onset: 04-17-2023 Unclassified (1 source) Pain in right hand; 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: [Pain in right hand] Onset: 04-08-2023 Past or Other Problems Problem Classification Problem Date Documented Da te Episodic/Chronic Cardiac dysrhythmias (2 sources) Palpitations; 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: [Palpitations] Onset: 06-27-2017 06-28-2017 Episodic Unclassified (1 source) COUGH, UNSPECIFIED; 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: [COUGH, UNSPECIFIED] Onset: 02-06-2022 Results Test Name Value Interpretation Reference Range Facility Glucose Poct Glucometerson 0 04-24-2023 Commemt1 Glu2: Cleaned Meter Normal [facility] Comment on above: Result Comment: PERF ORMED BY: [facility] [address] [place] [address] PATHOLOGIST BRICKLAYER MARKELL WILDE M.D. Performed By: #### G LULS #### Point of Care testing , Glucose [Mass/Vol] 95 mg/dL Normal [facility] Comment on above: Result Comment: [place] Glucose Reference Range is dependent on time and content of last meal. Glucose of more than 200 mg/dL in a nonstressed, ambulatory subject supports the diagnosis of Diabetes Mellitus. Performed By: #### G LULS #### Point of Care testing , Alanine aminotransferase [En zymatic activity/volume] in Serum or PlasmaOrdered By: Anju Lees on 04-17-2023 ALT [Catalytic activity/Vol] 11 U/L 7-52 [facility] Albumin [Mass/volume] in Ser um or Plasma by Bromocresol green (BCG) dye binding methoOrdered By: Anju Lees on 04-17-2023 Albumin BCG dye [Mass/Vol] 3.7 g/dL 3.5-5.7 [facility] Alkaline phosphatase [Enzyma tic activity/volume] in Serum or PlasmaOrdered By: Anju Lees on 04-17-2023 ALP [Catalytic activity/Vol] 110 U/L 34-104 [facility] Aspartate aminotransferase [ Enzymatic activity/volume] in Serum or PlasmaOrdered By: Anju Lees on 04-17-2023 AST [Catalytic activity/Vol] 16 U/L 13-39 [facility] Basophils Auto (Bld) [#/Vol] Ordered By: Anju Lees on 04-17-2023 Basophils (Bld) [#/Vol] 0.1 10*3/uL 0.0-0.2 [facility] Basophils/100 WBC Auto (Bld) Ordered By: Anju Lees on 04-17-2023 Basophils/100 WBC (Bld) 0.6 % . [facility] Bilirubin.total [Mass/volume ] in Serum or PlasmaOrdered By: Anju Lees on 04-17-2023 Bilirubin [Mass/Vol] 0.5 mg/dL 0.3-1.0 [facility] CMP with reflex to A1Con Albumin [Mass/Vol] 3.7 g/dL Normal 3.5-5.7 [facility] Comment on above: Performed By: #### C MP wRFX A1C, CBC #### [facility] [address] Albumin/Globulin [Mass ratio] 1.9 {ratio} Normal [facility] Comment on above: Performed By: #### C MP wRFX A1C, CBC #### [facility] [address] ALP [Catalytic activity/Vol] 110 U/L High 34-104 [facility] Comment on above: Result Comment: PERF ORMED BY: [place] [address] PATHOLOGIST BRICKLAYER MARKELL WILDE M.D. Performed By: #### C MP wRFX A1C, CBC #### [facility] [address] [place] [address] [place] ALT [Catalytic activity/Vol] 11 U/L Normal 7-52 [facility] Comment on above: Performed By: #### C MP wRFX A1C, CBC #### [facility] [address] [place] [address] [place] Anion gap [Moles/Vol] 10.3 mmol/L Normal 6.0-15.0 [facility] Comment on above: Performed By: #### C MP wRFX A1C, CBC #### [facility] [address] [place] [address] [place] AST [Catalytic activity/Vol] 16 U/L Normal 13-39 [facility] Comment on above: Performed By: #### C MP wRFX A1C, CBC #### [facility] [address] Bilirubin [Mass/Vol] 0.5 mg/dL Normal 0.3-1.0 [facility] Comment on above: Performed By: #### C MP wRFX A1C, CBC #### [facility] [address] Calcium [Mass/Vol] 9.5 mg/dL Normal 8.6-10.3 [facility] Comment on above: Performed By: #### C MP wRFX A1C, CBC #### [address] Chloride [Moles/Vol] 102 mmol/L Normal 98-107 [facility] Comment on above: Performed By: #### C MP wRFX A1C, CBC #### [facility] [address] [place] [address] CO2 [Moles/Vol] 31.9 mmol/L High 21.0-31.0 [facility] Comment on above: Performed By: #### C MP wRFX A1C, CBC #### [address] Creatinine [Mass/Vol] 1.01 mg/dL Normal 0.60-1.20 [facility] Comment on above: Performed By: #### C MP wRFX A1C, CBC #### [facility] [address] [place] [address] [place] GFR/1.73 sq M.predicted MDRD (S/P/Bld) [Vol rate/Area] 56.627 mL/min/{1.73_m2} [facility] Comment on above: Performed By: #### C MP wRFX A1C, CBC #### [facility] [address] [place] [address] Globulin (S) [Mass/Vol] 2.0 g/dL [facility] Comment on above: Performed By: #### C MP wRFX A1C, CBC #### [facility] [address] [place] [address] [place] Glucose [Mass/Vol] 89 mg/dL Normal 70-100 [facility] Comment on above: Performed By: #### C MP wRFX A1C, CBC #### [facility] [address] [place] [id number] [place] Potassium [Moles/Vol] 4.2 mmol/L Normal 3.5-5.1 [facility] Comment on above: Performed By: #### C MP wRFX A1C, CBC #### [facility] [address] Protein [Mass/Vol] 5.7 g/dL Low 6.4-8.9 [facility] Comment on above: Performed By: #### C MP wRFX A1C, CBC #### [facility] [address] [place] [address] [place] Sodium [Moles/Vol] 140 mmol/L Normal 136-145 [facility] Comment on above: Performed By: #### C MP wRFX A1C, CBC #### [facility] [address] [place] [id number] [place] Urea nitrogen [Mass/Vol] 23 mg/dL Normal 7-25 [facility] Comment on above: Performed By: #### C MP wRFX A1C, CBC #### [facility] [address] [place] [id number] [place] Calcium [Mass/volume] in Ser um or PlasmaOrdered By: Anju Lees on 04-17-2023 Calcium [Mass/Vol] 9.5 mg/dL 8.6-10.3 [facility] Carbon dioxide, total [Moles /volume] in Serum or PlasmaOrdered By: Anju Lees on 04-17-2023 CO2 [Moles/Vol] 31.9 mmol/L 21.0-31.0 [facility] Chloride [Moles/volume] in S martita or PlasmaOrdered By: Anju Lees on 04-17-2023 Chloride [Moles/Vol] 102 mmol/L 98-107 [facility] Complete Blood Count Auto Di ffon 04-17-2023 Basophils (Bld) [#/Vol] 0.1 10*3/uL Normal 0.0-0.2 [facility] Comment on above: Result Comment: PERF ORMED BY: [place] [address] PATHOLOGIST BRICKLAYER MARKELL WILDE M.D. Performed By: #### C MP wRFX A1C, CBC #### [facility] [address] [place] [address] Basophils/100 WBC (Bld) 0.6 % Normal . [facility] Comment on above: Performed By: #### C MP wRFX A1C, CBC #### [address] Eosinophils (Bld) [#/Vol] 0.3 10*3/uL Normal 0.0-0.45 [facility] Comment on above: Performed By: #### C MP wRFX A1C, CBC #### [address] Eosinophils/100 WBC (Bld) 3.1 % Normal . [facility] Comment on above: Performed By: #### C MP wRFX A1C, CBC #### [address] Erythrocyte distribution width (RBC) [Ratio] 16.3 % High 11.9-15.3 [facility] Comment on above: Performed By: #### C MP wRFX A1C, CBC #### [facility] [address] [place] [address] Hematocrit (Bld) [Volume fraction] 33.3 % Low 34.0-46.4 [facility] Comment on above: Performed By: #### C MP wRFX A1C, CBC #### [address] Hemoglobin (Bld) [Mass/Vol] 11.1 g/dL Low 11.8-15.4 [facility] Comment on above: Performed By: #### C MP wRFX A1C, CBC #### [address] [place] [address] [place] Lymphocytes (Bld) [#/Vol] 2.1 10*3/uL Normal 1.00-4.8 [facility] Comment on above: Performed By: #### C MP wRFX A1C, CBC #### [facility] [address] Lymphocytes/100 WBC (Bld) 22.7 % Normal . [facility] Comment on above: Performed By: #### C MP wRFX A1C, CBC #### [address] MCH (RBC) [Entitic mass] 27.9 pg Normal 24.7-34.3 [facility] Comment on above: Performed By: #### C MP wRFX A1C, CBC #### [address] MCV (RBC) [Entitic vol] 83.3 fL Normal 80-100 [facility] Comment on above: Performed By: #### C MP wRFX A1C, CBC #### [address] Mean Corpuscular HGB Conc 33.4 g/dL Normal 32.0-35.0 [facility] Comment on above: Performed By: #### C MP wRFX A1C, CBC #### [address] Monocytes (Bld) [#/Vol] 0.6 10*3/uL Normal 0.0-0.8 [facility] Comment on above: Performed By: #### C MP wRFX A1C, CBC #### [place] [address] [place] Monocytes/100 WBC (Bld) 6.5 % Normal . [facility] Comment on above: Performed By: #### C MP wRFX A1C, CBC #### [address] Neutrophils (Bld) [#/Vol] 6.1 10*3/uL Normal 1.8-7.7 [facility] Comment on above: Performed By: #### C MP wRFX A1C, CBC #### [facility] [address] Neutrophils/100 WBC (Bld) 67.1 % Normal . [facility] Comment on above: Performed By: #### C MP wRFX A1C, CBC #### [facility] [address] NRBC% 0.1 /100{WBC} Normal 0-0.5 [facility] Comment on above: Performed By: #### C MP wRFX A1C, CBC #### [facility] [address] Platelet mean volume (Bld) [Entitic vol] 8.7 fL Normal 6.3-10.7 [facility] Comment on above: Performed By: #### C MP wRFX A1C, CBC #### [facility] [address] Platelets (Bld) [#/Vol] 249 10*3/uL Normal 150-450 [facility] Comment on above: Performed By: #### C MP wRFX A1C, CBC #### [facility] [address] RBC (Bld) [#/Vol] 4.00 10*6/uL Normal 3.60-5.00 [facility] Comment on above: Performed By: #### C MP wRFX A1C, CBC #### [facility] [address] [place] [address] [place] WBC (Bld) [#/Vol] 9.1 10*3/uL Normal 3.8-11.6 [facility] Comment on above: Performed By: #### C MP wRFX A1C, CBC #### [facility] [address] [place] [address] [place] Creatinine [Mass/volume] in Serum or PlasmaOrdered By: Anju Lees on 04-17-2023 Creatinine [Mass/Vol] 1.01 mg/dL 0.60-1.20 [facility] ECG 12 lead ECGon 04-17-2023 ECG 12 lead ECG [facility] [place] [address] [place] [address] Electrocardiograph Report Signed Patient: Zachary Maynard MR#: [id number] : 1945 Acct:[id number] Age/Sex: 77 / F ADM Date: 04/17/23 Loc: Room: Type: [facility] Attending Dr: Anju Lees MD Ordering Provider: Anju Lees MD Date of Service: 04/17/23 ECG/ECG 12 lead ECG: Pre op Copies to: Test Reason : Blood Pressure : / mmHG Vent. Rate : 068 BPM Atrial Rate : 068 BPM P-R Int : 154 ms QRS Dur : 080 ms QT Int : 404 ms P-R-T Axes : 067 002 045 degrees QTc Int : 429 ms Normal sinus rhythm Nonspecific T wave abnormality Abnormal ECG No previous ECGs available Confirmed by BAILEE MACIAS [facility] ([id number] on 04/17/2023 3:12:20 PM Referred By: FREDDY Electronically Signed By:JASON MARIE MD [facility] Transcribed By: MUS Signed By Bonifacio Marie MD 04/17/[address] [facility] Eosinophils Auto (Bld) [#/Vo l]Ordered By: Anju Lees on 04-17-2023 Eosinophils (Bld) [#/Vol] 0.3 10*3/uL 0.0-0.45 [facility] Eosinophils/100 WBC Auto (Bl d)Ordered By: Anju Lees on 04-17-2023 Eosinophils/100 WBC (Bld) 3.1 % . [facility] Erythrocyte distribution wid th Auto (RBC) [Ratio]Ordered By: Anju Lees on 04-17-2023 Erythrocyte distribution width (RBC) [Ratio] 16.3 % 11.9-15.3 [facility] Globulin Calc (S) [Mass/Vol] Ordered By: Anju Lees on 04-17-2023 Globulin (S) [Mass/Vol] 2.0 g/dL [facility] Glucose [Mass/volume] in Ser um or PlasmaOrdered By: Anju Lees on 04-17-2023 Glucose [Mass/Vol] 89 mg/dL 70-100 [facility] Hematocrit Auto (Bld) [Volum e fraction]Ordered By: Anju Lees on 04-17-2023 Hematocrit (Bld) [Volume fraction] 33.3 % 34.0-46.4 [facility] Hemoglobin [Mass/volume] in BloodOrdered By: Anju Lees on 04-17-2023 Hemoglobin (Bld) [Mass/Vol] 11.1 g/dL 11.8-15.4 [facility] Leukocytes [#/volume] correc lovely for nucleated erythrocytes in Blood by Automated counOrdered By: Anju Lees on 04-17-2023 WBC corrected for nucl RBC Auto (Bld) [#/Vol] 9.1 10*3/uL 3.8-11.6 [facility] Lymphocytes Auto (Bld) [#/Vo l]Ordered By: Anju Lees on 04-17-2023 Lymphocytes (Bld) [#/Vol] 2.1 10*3/uL 1.00-4.8 [facility] Lymphocytes/100 WBC Auto (Bl d)Ordered By: Anju Lees on 04-17-2023 Lymphocytes/100 WBC (Bld) 22.7 % . [facility] MCH Auto (RBC) [Entitic mass ]Ordered By: Anju Lees on 04-17-2023 MCH (RBC) [Entitic mass] 27.9 pg 24.7-34.3 [facility] MCHC Auto (RBC) [Mass/Vol]Or dered By: Anju Lees on 04-17-2023 MCHC (RBC) [Mass/Vol] 33.4 g/dL 32.0-35.0 [facility] MCV Auto (RBC) [Entitic vol] Ordered By: Anju Lees on 04-17-2023 MCV (RBC) [Entitic vol] 83.3 fL 80-100 [facility] Monocytes Auto (Bld) [#/Vol] Ordered By: Anju Lees on 04-17-2023 Monocytes (Bld) [#/Vol] 0.6 10*3/uL 0.0-0.8 [facility] Monocytes/100 WBC Auto (Bld) Ordered By: Anju Lees on 04-17-2023 Monocytes/100 WBC (Bld) 6.5 % . [facility] Neutrophils Auto (Bld) [#/Vo l]Ordered By: Anju Lees on 04-17-2023 Neutrophils (Bld) [#/Vol] 6.1 10*3/uL 1.8-7.7 [facility] Neutrophils/100 WBC Auto (Bl d)Ordered By: Anju Lees on 04-17-2023 Neutrophils/100 WBC (Bld) 67.1 % . [facility] No Panel InformationOrdered By: Anju Lees on 04-17-2023 Estimated GFR (CKD-EPI) 56.627 mL/Min [facility] Creatinine Clearance (Chem N/A [facility] Nucleated erythrocytes [Pres ence] in Blood by Automated countOrdered By: Anju Lees on 04-17-2023 Nucleated RBC Auto Ql (Bld) 0.1 /100{WBC} 0-0.5 [facility] Platelet mean volume Auto (B ld) [Entitic vol]Ordered By: Anju Lees on 04-17-2023 Platelet mean volume (Bld) [Entitic vol] 8.7 fL 6.3-10.7 [facility] Platelets Auto (Bld) [#/Vol] Ordered By: Anju Lees on 04-17-2023 Platelets (Bld) [#/Vol] 249 10*3/uL 150-450 [facility] Potassium [Moles/volume] in Serum or PlasmaOrdered By: Anju Lees on 04-17-2023 Potassium [Moles/Vol] 4.2 mmol/L 3.5-5.1 [facility] Protein [Mass/volume] in Ser um or PlasmaOrdered By: Anju Lees on 04-17-2023 Protein [Mass/Vol] 5.7 g/dL 6.4-8.9 [facility] RBC Auto (Bld) [#/Vol]Ordere d By: Anju Lees on 04-17-2023 RBC (Bld) [#/Vol] 4.00 10*6/uL 3.60-5.00 [facility] Serum or plasma albumin/glob ulin mass ratioOrdered By: Anju Lees on 04-17-2023 Albumin/Globulin [Mass ratio] 1.9 {ratio} [facility] Serum or plasma anion gap de terminationOrdered By: Anju Lees on 04-17-2023 Anion gap [Moles/Vol] 10.3 mmol/L 6.0-15.0 [facility] Sodium [Moles/volume] in Ser um or PlasmaOrdered By: Anju Lees on 04-17-2023 Sodium [Moles/Vol] 140 mmol/L 136-145 [facility] Urea nitrogen [Mass/volume] in Serum or PlasmaOrdered By: Anju Lees on 04-17-2023 Urea nitrogen [Mass/Vol] 23 mg/dL 7-25 [facility] WBC Auto (Bld) [#/Vol]Ordere d By: Anju Lees on 04-17-2023 WBC (Bld) [#/Vol] 9.1 10*3/uL 3.8-11.6 [facility] XR hand RT min 3V*on 024 XR hand RT min 3V* [facility] [place] [address] XRay Report Signed Patient: Zachary Maynard MR#: [id number] : 1945 Acct:[id number] Age/Sex: 77 / F ADM Date: 04/08/23 Loc: [facility] Room: Type: [facility] Attending Dr: Anju Lees MD Copies to: Anju Lees MD Ordering Provider: Anju Lees MD Date of Service: 04/08/23 XR/XR hand RT min 3V*: M79.641 RIGHT HAND - 4 views CLINICAL DATA: Right hand pain for several months at the third and fourth fingers. No injury. COMPARISON: None AP, lateral and oblique views were obtained along with supplemental AP view of the thumb. A tiny bony spicule is visualized medial to the base of the fifth metacarpal on the AP view. It is uncertain if it is degenerative or related to an old injury. There is no acute fracture or dislocation. There is slight lateral subluxation of the distal phalanx of the thumb on the AP view. There is joint space narrowing at the interphalangeal joints of the fingers, greatest distally at the second and fifth fingers. There is also mild marginal spurring. There is mild joint space narrowing and minor hypertrophy at the first carpal metacarpal joint. There is mild soft tissue swelling and some of the fingers.. XR/XR hand RT min 3V* IMPRESSION: DEGENERATIVE CHANGES, DESCRIBED. NO ACUTE BONY FINDINGS. Impression dictated by: Sammie Arizmendi M.D.04/08/2023 1:57 PM Dictation Location: [employer] Transcribed By: AUSTIN 04/08/23 135 Dictated By: Sammie Arzimendi MD 04/08/231352 Signed By: 04/08/231356 [facility] ECHOCARDIO M/2D COMPLETEon 0 05-29-2022 ECHOCARDIO M/2D COMPLETE Patient: ZACHARY MAYNARD Exam Date: 05/29/2022 : 1945 Gender:F Ordering : DR ADINA BUNCH . Admission #: [id number] Family : Order #: [id number] CLICK HERE TO VIEW EXAM ECHOCARDIOGRAM REPORT PROCEDURE: CARDIO PULMONARY ECHOCARDIO M/2D COMP COMPARISON: None. DESCRIPTION: COMPLETE ECHOCARDIOGRAM Real-time transthoracic echocardiography with 2D, M-mode, spectral and color flow Doppler performed. QUALITY: Technical quality was good. LEFT VENTRICLE: Normal chamber size. Borderline left ventricular hypertrophy. Global left ventricular systolic function is normal. LV EF: Visual estimation of left ventricular ejection fraction is 60-65% DIASTOLIC: Normal diastolic function. ATRIAL SEPTUM: LEFT ATRIUM: Normal chamber size. RIGHT ATRIUM: Normal chamber size. RIGHT VENTRICLE: Normal chamber size. Normal right ventricular systolic function. TRICUSPID VALVE: Normal mobility and thickness. No stenosis with trivial regurgitation. No evidence of pulmonary hypertension. RVSP 19 mmHg MITRAL VALVE: Normal mobility and thickness. No mitral valve prolapse. No evidence of mitral valve stenosis. There is no mitral annular calcification. Trivial mitral regurgitation. AORTIC VALVE: Normal trileaflet appearance. Mildly calcified aortic valve. Normal leaflet mobility. No evidence of aortic valve stenosis. No aortic regurgitation. AORTIC ROOT: Normal diameter and appearance. PULMONIC VALVE: Normal thickness and mobility. No stenosis. Trivial regurgitation. PERICARDIUM: No evidence of pericardial effusion. IVC: Collapses with inspirations. Normal size. PLEURA: CONCLUSION: 1. Normal ventricular function. LVEF is 60 to 65%. 2. No significant valvular dysfunction. 3. Normal right-sided pressures. Adult Echocardiography Procedure Report Left Ventricle LVEDD (3.7 - 5.6 cm): 4.11 cm LVESD (2.2 - 4.0 cm): 2.78 cm LVIVS thickness (0.6 - 1.2 cm): 1.05 cm LVPW thickness (0.5 - 1.0 cm): 0.97 cm e': 0.08 m/s E - e': 9.79 LVOT Max Gradient: 3.45 mm[Hg], 3.45 mm[Hg] Peak Velocity (LVOT): 0.93 m/s, 0.93 m/s Mean Velocity (LVOT): 0.63 m/s, 0.65 m/s LVOT Diameter 1.98 cm Left Ventricular Ejection Fraction: 60-65 % Left Atrium LA Volume Index (2D A2C): 54.30 ml, 54.30 ml Left Atrium Systolic Dimension: 3.33 cm Mitral Valve MV E to A Ratio: 0.57 Mitral Valve A-Wave Peak Velocity: 1.32 m/s Mitral Valve E-Wave Peak Velocity: 0.74 m/s Right Ventricle RV Internal Diastolic Dimension: 3.55 cm Aorta AO Root Diam: 2.25 cm Ascending Ao Diam: 2.62 cm Aortic Valve AoV Area (Peak Master): 2.47 cm2, 2.41 cm2, 2.54 cm2 AoV Area (VTI): 2.35 cm2, 2.09 cm2, 2.68 cm2 Peak Velocity(Antegrade Flow): 1.18 m/s, 1.12 m/s Peak Gradient(Antegrade Flow): 5.59 mm[Hg], 5.06 mm[Hg] Mean Velocity(Antegrade Flow): 0.83 m/s, 0.77 m/s Mean Gradient(Antegrade Flow): 3.03 mm[Hg], 2.67 mm[Hg] Velocity Time Integral: 27.54 cm, 21.86 cm Tricuspid Valve Peak Velocity (Regurgitant Flow): 2.03 m/s, 1.75 m/s Pulmonic Valve Mean Gradient: 2.28 mm[Hg], 1.70 mm[Hg] Mean Velocity: 0.70 m/s, 0.60 m/s Peak Velocity: 1.03 m/s, 0.87 m/s Peak Gradient: 4.25 mm[Hg], 3.05 mm[Hg] Right Atrium Right Atrium Systolic Pressure: 52.46 ml, 52.46 ml Dictated by: Moises Shore M.D. on 05/30/2022 at 18:29 Approved by: Moises Shore M.D. on 05/30/2022 at 18:32 Normal [facility] MRI BRAIN WO CONon MRI BRAIN WO CON EXAMINATION: MRI BRA IN WO CON, 05/29/2022 10:52 AM EDT HISTORY: Syncope and collapse , dizziness COMPARISON: MRI brain 09/05/2020 TECHNIQUE: MRI of the brain was performed without IV contrast. FINDINGS: CEREBRUM: Numerous small patchy and confluent T2 hyperintensities scattered throughout the periventricular and subcortical deep white matter, nonspecific but favoring chronic small vessel ischemic changes. No edema, hemorrhage, mass, acute infarction, or inappropriate atrophy. CEREBELLUM: No edema, hemorrhage, mass, acute infarction, or inappropriate atrophy. BRAINSTEM: No edema, hemorrhage, mass, acute infarction, or inappropriate atrophy. CSF SPACES: Ventricles, cisterns, and sulci are appropriate for age. No hydrocephalus, subarachnoid hemorrhage, or mass. SKULL: No mass or other significant visible lesion. SINUSES: Limited views demonstrate no significant mucosal thickening or fluid. ORBITS: Limited views are unremarkable. OTHER: Negative. IMPRESSION: 1. No acute or suspicious findings to account for patient's symptoms. 2. Age consistent atrophy and chronic small vessel ischemic changes; not significantly changed. Electronically authenticated by: RENATA GAYTAN Date: 2022-05-29 13:51 Normal [facility] US CAROTID ART BILon 023 US CAROTID ART JONY EXAMINATION: US SAL TID ART JONY HISTORY: Syncope and collapse COMPARISON: No relevant comparison available. TECHNIQUE: Duplex Doppler ultrasound analysis of carotid and vertebral arteries. . Bilateral carotid arterial duplex examination was performed using B-mode, color flow and spectral analysis. Carotid stenosis is reported according to validated velocity parameters, similar to NASCET criteria. FINDINGS: RIGHT CAROTID ARTERY: Moderate plaque within distal CCA, bulb, proximal ICA without significant calcification. 52% diameter reduction within distal CCA. RIGHT VERTEBRAL: Antegrade flow. Subclavian: PSV: 220.8 cm/s EDV: 19.0 cm/s CCA: Prox: PSV: 82.2 cm/s EDV: 16.0 cm/s Mid: PSV: 72.1 cm/s EDV: 17.1 cm/s Distal: PSV: 83.1 cm/s EDV: 21.5 cm/s BULB: PSV: 79.8 cm/s EDV: 20.4 cm/s ICA: Prox: PSV: 91.4 cm/s EDV: 18.9 cm/s Mid: PSV: 86.2 cm/s EDV: 21.5 cm/s Distal: PSV: 96.5 cm/s EDV: 25.4 cm/s ECA: PSV: 76.2 cm/s EDV: 8.9 cm/s VERTEBRAL: PSV: 61.1 cm/s EDV: 11.6 cm/s ICA/CCA ratio: PSV: 1.2 EDV: 1.2 LEFT CAROTID ARTERY: Mild plaque within the mid CCA. LEFT VERTEBRAL: Antegrade flow. Subclavian: PSV: 248.2 cm/s EDV: 0.0 cm/s CCA: Prox: PSV: 89.8 cm/s EDV: 20.4 cm/s Mid: PSV: 82.3 cm/s EDV: 17.6 cm/s Distal: PSV: 67.7 cm/s EDV: 17.1 cm/s BULB: PSV: 59.8 cm/s EDV: 11.9 cm/s ICA: Prox: PSV: 59.8 cm/s EDV: 19.7 cm/s Mid: PSV: 79.8 cm/s EDV: 25.9 cm/s Distal: PSV: 84.8 cm/s EDV: 22.8 cm/s ECA: PSV: 70.6 cm/s EDV: 8.5 cm/s VERTEBRAL: PSV: 52.0 cm/s EDV: 15.4 cm/s ICA/CCA ratio: PSV: 1.0 EDV: 1.3 IMPRESSION: 1. 0-49% flow stenosis within the right and left carotid arteries. 2. Moderate plaque on right, mild on left, predominantly noncalcified. Electronically authenticated by: RENATA GAYTAN Date: 2022-05-29 12:55 Normal [facility] Covid-19 PCR ([facility]on 01-24 SARS-CoV-2 (COVID-19) RNA ARMIN+probe Ql (Unsp spec) Not detected Normal NOT DETECTED [facility] Comment on above: Result Comment: This test is not yet approved or cleared by the [place] FDA. When there are no FDA-approved or cleared tests available, and other criteria are met, FDA can make tests available under an emergency access mechanism called an Emergency Use Authorization (EUA). The EUA for this test is supported by the [place] of Health and Human Service's (HHS's) declaration that circumstances exist to justify the emergency use of in vitro diagnostics for the detection and/or diagnosis of the virus that causes COVID-19. This EUA will remain in effect (meaning this test can be used) for the duration of the COVID-19 declaration justifying emergency of IVDs, unless it is terminated or revoked by FDA (after which the test may no longer be used). When diagnostic testing is negative, the possibility of a false negative should be considered in the context of a patient's recent exposures and the presence of clinical signs and symptoms consistent with SARS-CoV-2. Performed By: #### [facility] #### [facility] [address] [place] [address] Dr. Samuel Kang Ambulatory Clinical Summaryo n 09-11-2020 Ambulatory Clinical Summary {[id number] }[id number] Normal [facility] Patient Educationon 09-12-19 21 Patient Education Nutrition Calorie Counting for Weight Loss Calories are units of energy. Your body needs a certain amount of calories from food to keep you going throughout the day. When you eat more calories than your body needs, your body stores the extra calories as fat. When you eat fewer calories than your body needs, your body sam fat to get the energy it needs. Calorie counting means keeping track of how many calories you eat and drink each day. Calorie counting can be helpful if you need to lose weight. If you make sure to eat fewer calories than your body needs, you should lose weight. Ask your health care provider what a healthy weight is for you. For calorie counting to work, you will need to eat the right number of calories in a day in order to lose a healthy amount of weight per week. A dietitian can help you determine how many calories you need in a day and will give you suggestions on how to reach your calorie goal. ? A healthy amount of weight to lose per week is usually 1?2 lb (0.5?0.9 kg). This usually means that your daily calorie intake should be reduced by 500?750 calories. ? Eating 1,200 ? 1,500 calories per day can help most women lose weight. ? Eating 1,500 ? 1,800 calories per day can help most men lose weight. What is my plan? My goal is to have calories per day. If I have this many calories per day, I should lose around pounds per week. What do I need to know about calorie counting? In order to meet your daily calorie goal, you will need to: ? Find out how many calories are in each food you would like to eat. Try to do this before you eat. ? Decide how much of the food you plan to eat. ? Write down what you ate and how many calories it had. Doing this is called keeping a food log. To successfully lose weight, it is important to balance calorie counting with a healthy lifestyle that includes regular activity. Aim for 150 minutes of moderate exercise (such as walking) or 75 minutes of vigorous exercise (such as running) each week. Where do I find calorie information? The number of calories in a food can be found on a Nutrition Facts label. If a food does not have a Nutrition Facts label, try to look up the calories online or ask your dietitian for help. Remember that calories are listed per serving. If you choose to have more than one serving of a food, you will have to multiply the calories per serving by the amount of servings you plan to eat. For example, the label on a package of bread might say that a serving size is 1 slice and that there are 90 calories in a serving. If you eat 1 slice, you will have eaten 90 calories. If you eat 2 slices, you will have eaten 180 calories. How do I keep a food log? Immediately after each meal, record the following information in your food log: ? What you ate. Don't forget to include toppings, sauces, and other extras on the food. ? How much you ate. This can be measured in cups, ounces, or number of items. ? How many calories each food and drink had. ? The total number of calories in the meal. Keep your food log near you, such as in a small notebook in your pocket, or use a mobile ken or website. Some programs will calculate calories for you and show you how many calories you have left for the day to meet your goal. What are some calorie counting tips? ? Use your calories on foods and drinks that will fill you up and not leave you hungry: ? Some examples of foods that fill you up are nuts and nut butters, vegetables, lean proteins, and high-fiber foods like whole grains. High-fiber foods are foods with more than 5 g fiber per serving. ? Drinks such as sodas, specialty coffee drinks, alcohol, and juices have a lot of calories, yet do not fill you up. ? Eat nutritious foods and avoid empty calories. Empty calories are calories you get from foods or beverages that do not have many vitamins or protein, such as candy, sweets, and soda. It is better to have a nutritious high-calorie food (such as an avocado) than a food with few nutrients (such as a bag of chips). ? Know how many calories are in the foods you eat most often. This will help you calculate calorie counts faster. ? Pay attention to calories in drinks. Low-calorie drinks include water and unsweetened drinks. ? Pay attention to nutrition labels for low fat or fat free foods. These foods sometimes have the same amount of calories or more calories than the full fat versions. They also often have added sugar, starch, or salt, to make up for flavor that was removed with the fat. ? Find a way of tracking calories that works for you. Get creative. Try different apps or programs if writing down calories does not work for you. What are some portion control tips? ? Know how many calories are in a serving. This will help you know how many servings of a certain food you can have. ? Use a measuring cup to measure serving sizes. You could (more content not included)... Normal [facility] Urology Office/Clinic Noteon 09-11-2020 Urology Office/Clinic Note Chief Complaint Pt is here for a follow up to cystocele w/ PVR HPI Staff Zachary is a 75 y.o. female here for a 1 month follow up w/ PVR. DLS patient, PO cystocele repair. Previous Dx: bladder infection, bladder outlet obtruction, cystocele w/ prolapse, dysuria, flank pain, gross hematuria, hx of UTI, postinfective urethral stricture, retention of urine, stress incontinence, urge incontinence, urinary incontinence. S/P repair of cystocele done on 07/19/20, cysto/UD done on 05/18/20. PVR 0mL. Dysuria: denies Incomplete bladder emptying: denies Hematuria: denies Frequency: denies Urgency: denies Nocturia: 1x a night Stream: steady stream Leaking: denies Post void dripping: denies Wearing pads/ Depends: denies Urge incontinence: denies Stress incontinence: denies Incontinence without Sensory Awareness: denies Abdominal pain: denies Flank pain: denies Sexual complaints: _ History of Present Illness Pt is here for 1 month follow up w/PVR due to Cystocele repair on 07/19/2020 Reviewed UA and PVR Pt has no associated symptoms, no fever, no chills, no flank pain. I have reviewed the previous health record information and history for this patient from Dr. Finley Review of Systems PHQ Score Initial Depression Screen Score: 0 ROS - Provider Constitutional: denies weight loss, denies hot flashes. Eyes: denies eye problems. Gastrointestinal: denies nausea, denies vomiting. Cardiovascular: denies chest pain or angina. Integumentary: no dryness Musculoskeletal: denies musculoskeletal symptoms. ENMT: denies otolaryngeal symptoms. Respiratory: no shortness of breath. Heme/Lymph: denies easy bleeding tendency, denies easy bruising tendency. Psychiatric: no confusion, no anxiety. Genitourinary: denies vaginal discharge, denies incontinence, denies dysuria, denies hematuria, denies urinary frequency, denies amenorrhea, denies menorrhagia, denies abnormal bleeding, denies pelvic pain, denies genital sores, and denies decreased libido. Physical Exam Vitals & Measurements HR: 68(Peripheral) BP: 132/85 HT: 163 cm HT: 163.0 cm WT: 68 kg WT: 68.0 kg BMI: 25.59 General Appearance: alert , no acute distress, well nourished, well developed female. Genitourinary: bladder nonpalpable, no flank pain. Assessment/Plan Will see Dr. Finley in 6 months 1. Cystocele with prolapse (N81.4: Uterovaginal prolapse, unspecified) S/P Cystocele Repair 07/19/2020 2. Incomplete bladder emptying (R33.9: Retention of urine, unspecified) Pt's PVR today in office is 0cc This patient had a cystocele repair several months ago he is not bleeding at all now she is voiding well her urine is clear she says she has no issues she has good control. All is negative said see Dr. Finley in 6 months time. He will check or as needed of course Follow-up With When Contact Information Tushar Nunez MD, Jude Farias URO In 6 months [phone] Additional Instructions: Patient Education Calorie Counting for Weight Loss Anastasia Marr, personally scribed for Dr. Armando on 09/11/2020 16:08:41. . Documentation recorded by the scribe, Anastasia Cabral, accurately reflects the services(s) I performed and decisions made by me. Authenticated by Dr. Armando on 09/11/2020 16:11:48. Problem List/Past Medical History Ongoing Arthritis Asthma Bladder infection Bladder outlet obstruction BMI 25.0-25.9,adult COPD mixed type Cystocele with prolapse Dysuria Flank pain Gross hematuria Hematuria High cholesterol History of UTI Hypertension Incomplete bladder emptying Postinfective urethral stricture in female Retention of urine Stress incontinence Urge incontinence Urinary, incontinence, stress female Historical No qualifying data Procedure/Surgical History Repair of cystocele (07/19/2020), Cystourethroscopy with dilation of urethral stricture (05/18/2020), Cystoscopy (12/02/2019), Breast surgery, Colonoscopy, H/O: hysterectomy. Medications hydrochlorothiazide 25 mg oral tablet meclizine 12.5 mg Tab, Not taking predniSONE, 5 mg, Oral, Daily Allergies Avelox (Unknown) Cipro (Unknown) Demerol (Unknown) Nubain (Unknown) Phenergan (Unknown) Phenergan (Unknown) Tape (Unknown) Tape (Unknown) statins (Unknown) sulfa drugs (Unknown) Social History Alcohol - Denies Alcohol Use, 11/16/2019 Tobacco - Denies Tobacco Use, 11/16/2019 Never (less than 100 in lifetime) Tobacco Use:. Never Smokeless Tobacco Use:., 09/11/2020 Never (less than 100 in lifetime) Tobacco Use:. Never Smokeless Tobacco Use:., 06/20/2020 Never (less than 100 in lifetime) Tobacco Use:., 11/16/2019 Family History Family history is unknown Immunizations Vaccine Date Status SARS-CoV-2 (COVID-19) mRNA-1273 vaccine 05/19/2020 Recorded SARS-CoV-2 (COVID-19) mRNA-1273 vaccine 05/19/2020 Recorded SARS-CoV-2 (COVID-19) mRNA-1273 vaccine 04/28/2020 Recorded SARS-CoV-2 (COVID-19) mR (more content not included)... Normal [facility] Comment on above: Result Comment: Elec tronically Signed By: Thuan ARMANDO MD\.br\Date and Time Signed: 09/11/20 16:11 EDT\.br\Electronically Co-Signed By: Anastasia Cabral\.br\Date and Time Co-Signed: 09/11/20 16:08 EDT Ambulatory Clinical Summaryo n 08-08-2020 Ambulatory Clinical Summary {[id number] }CD:[id number] [facility] Patient Educationon 08-09-19 21 Patient Education Urology Urinary Incontinence Urinary incontinence refers to a condition in which a person is unable to control where and when to pass urine. A person with this condition will urinate when he or she does not mean to (involuntarily). What are the causes? This condition may be caused by: ? Medicines. ? Infections. ? Constipation. ? Overactive bladder muscles. ? Weak bladder muscles. ? Weak pelvic floor muscles. These muscles provide support for the bladder, intestine, and, in women, the uterus. ? Enlarged prostate in men. The prostate is a gland near the bladder. When it gets too big, it can pinch the urethra. With the urethra blocked, the bladder can weaken and lose the ability to empty properly. ? Surgery. ? Emotional factors, such as anxiety, stress, or post-traumatic stress disorder (PTSD). ? Pelvic organ prolapse. This happens in women when organs shift out of place and into the vagina. This shift can prevent the bladder and urethra from working properly. What increases the risk? The following factors may make you more likely to develop this condition: ? Older age. ? Obesity and physical inactivity. ? and childbirth. ? Menopause. ? Diseases that affect the nerves or spinal cord (neurological diseases). ? Long-term (chronic) coughing. This can increase pressure on the bladder and pelvic floor muscles. What are the signs or symptoms? Symptoms may vary depending on the type of urinary incontinence you have. They include: ? A sudden urge to urinate, but passing urine involuntarily before you can get to a bathroom (urge incontinence). ? Suddenly passing urine with any activity that forces urine to pass, such as coughing, laughing, exercise, or sneezing (stress incontinence). ? Needing to urinate often, but urinating only a small amount, or constantly dribbling urine (overflow incontinence). ? Urinating because you cannot get to the bathroom in time due to a physical disability, such as arthritis or injury, or communication and thinking problems, such as Alzheimer disease (functional incontinence). How is this diagnosed? This condition may be diagnosed based on: ? Your medical history. ? A physical exam. ? Tests, such as: ? Urine tests. ? X-rays of your kidney and bladder. ? Ultrasound. ? CT scan. ? Cystoscopy. In this procedure, a health care provider inserts a tube with a light and camera (cystoscope) through the urethra and into the bladder in order to check for problems. ? Urodynamic testing. These tests assess how well the bladder, urethra, and sphincter can store and release urine. There are different types of urodynamic tests, and they vary depending on what the test is measuring. To help diagnose your condition, your health care provider may recommend that you keep a log of when you urinate and how much you urinate. How is this treated? Treatment for this condition depends on the type of incontinence that you have and its cause. Treatment may include: ? Lifestyle changes, such as: ? Quitting smoking. ? Maintaining a healthy weight. ? Staying active. Try to get 150 minutes of moderate-intensity exercise every week. Ask your health care provider which activities are safe for you. ? Eating a healthy diet. ? Avoid high-fat foods, like fried foods. ? Avoid refined carbohydrates like white bread and white rice. ? Limit how much alcohol and caffeine you drink. ? Increase your fiber intake. Foods such as fresh fruits, vegetables, beans, and whole grains are healthy sources of fiber. ? Pelvic floor muscle exercises. ? Bladder training, such as lengthening the amount of time between bathroom breaks, or using the bathroom at regular intervals. ? Using techniques to suppress bladder urges. This can include distraction techniques or controlled breathing exercises. ? Medicines to relax the bladder muscles and prevent bladder spasms. ? Medicines to help slow or prevent the growth of a man's prostate. ? Botox injections. These can help relax the bladder muscles. ? Using pulses of electricity to help change bladder reflexes (electrical nerve stimulation). ? For women, using a medical claims assistant to prevent urine leaks. This is a small, tampon-like, disposable device that is inserted into the urethra. ? Injecting collagen or carbon beads (bulking agents) into the urinary sphincter. These can help thicken tissue and close the bladder opening. ? Surgery. Follow these instructions at home: Lifestyle ? Limit alcohol and caffeine. These can fill your bladder quickly and irritate it. ? Keep yourself clean to help prevent odors and skin damage. Ask your doctor about special skin creams and cleansers that can protect the skin from urine. ? Consider wearing pads or adult diapers. Make sure to change them regularly, and always change them right after experiencing incontinence. General instructions ? Take xutp-drb-rpavfdg and prescription medicines only as (more content not included)... Normal [facility] Urology Office/Clinic Noteon 08-08-2020 Urology Office/Clinic Note Chief Complaint 2 week PO This is a post postop visit following cystocele repair. Overall the patient is doing quite well. She has had some bleeding initially after surgery but that is almost all completely stopped. She is back to most of her normal physical activity. The cystocele has not returned. HPI Staff Pt is here for a 2 Wk PO to a Grade 2 midline Vaginal cystocele repair done 07/19/20. Pt states that she is doing well since the procedure. Pt states that she is still having some watery blood discharge, she was wondering if this is normal, but she is having to wear pads. She believes that the is an odor to it. S/P 06/15/20 Cysto/UD. Dysuria: Dr. Bunch put her on an ABX for 10 days due to itching and burning, she said she finished 2 days ago - no pain or burning at this time Incomplete bladder emptying: emptying well Hematuria: seeing bloody discharge Frequency: normal at this time Urgency: mild Nocturia: improved to 1x a night Stream: strong stream stream Post void dripping: none Wearing pads/ Depends: yes, always wet - she is changing 3x a day Urge incontinence: none Stress incontinence: yes, intermittent Incontinence without Sensory Awareness: yes intermittent through out the day and at night , she thought it was the discharge History of Present Illness Reviewed op report. There have been no associated fever, chills, flank pain or blood in the urine. Pt. denies any pain/burning with urination at this time. Review of Systems PHQ Score Initial Depression Screen Score: 0 ROS - Provider Constitutional: denies weight loss, denies hot flashes. Eyes: denies eye problems. Gastrointestinal: denies nausea, denies vomiting. Cardiovascular: denies chest pain or angina. Integumentary: no dryness Musculoskeletal: denies musculoskeletal symptoms. ENMT: denies otolaryngeal symptoms. Respiratory: no shortness of breath. Heme/Lymph: denies easy bleeding tendency, denies easy bruising tendency. Psychiatric: no confusion, no anxiety. Genitourinary: denies vaginal discharge, denies incontinence, denies dysuria, denies hematuria, denies urinary frequency, denies amenorrhea, denies menorrhagia, denies abnormal bleeding, denies pelvic pain, denies genital sores, and denies decreased libido. Physical Exam Vitals & Measurements HT: 163.0 cm HT: 163 cm WT: 68.0 kg WT: 68 kg BMI: 25.59 General Appearance: alert , no acute distress, well nourished, well developed female. Genitourinary: bladder nonpalpable, no flank pain. Assessment/Plan Overall the patient is done well postoperatively. She had some bleeding after the procedure and some pain but this is almost completely resolved. Urinary continence is not a problem. She does not have urgency frequency or pre or post void dribbling. She will slowly begin to resume her physical activity starting in 1 month. We will plan to see her back in the office for follow-up visit at that time. 1. Cystocele, midline (N81.11: Cystocele, midline) Grade 2. S/p vaginal cystocele repair done 07/19/20. Pt. denies any issues since the procedure. Pt. is informed that it will take up to 2mos. to heal from this and pt. is to slowly return to her normal activities. The pathology report was reviewed with the patient in detail today. There is no evidence of malignancy and no further evaluation of the tissue removed is planned. All questions were answered and the report discussed in terms that the patient could understand. Pt. to call the office if heencounters any issues prior. Pt. acknowledges understanding. 2. Stress incontinence (N39.3: Stress incontinence (female) (male)) Mild, intermittent. 3. Postinfective urethral stricture in female (N35.12: Postinfective urethral stricture, not elsewhere classified, female) S/p Cysto/UD 06/15/20. I have reviewed the previous health record information and history for this pt. from Dr. Finley. Follow-up With When Contact Information Tushar Nunez MD, Jude Farias, [facility] [address] [place] [id number]- Additional Instructions: 1mos. f/u Patient Education Urinary Incontinence IKisha , personally scribed for Dr. Finley on 08/08/2020 11:13:55. . Documentation recorded by the scribe, Kisha Stevens, accurately reflects the services(s) I performed and decisions made by me. Authenticated by Dr. Finley on 08/08/2020 11:28:35. Problem List/Past Medical History Ongoing Arthritis Asthma Bladder infection Bladder outlet obstruction COPD mixed type Cystocele with prolapse Dysuria Flank pain Gross hematuria Hematuria High cholesterol History of UTI Hypertension Postinfective urethral stricture in female Retention of urine Stress incontinence Urge incontinence Urinary, incontinence, stress female Historical No qualifying data Procedure/Surgical History Repair of cystocele (07/19/2020), Cystourethroscopy with dilation of urethral (more content not included)... Normal [facility] Comment on above: Result Comment: Elec tronically Signed By: Tushar Nunez MD, Jude Farias\.br\Date and Time Signed: 08/08/20 11:28 EDT\.br\Electronically Co-Signed By: Kisha Stevens MA\.br\Date and Time Co-Signed: 08/08/20 11:15 EDT Operative Reporton Operative Report [id number]#1.00CD: 127 [facility] Pathology Noteon 07-27-2020 Pathology Note [id number]#1.00CD :127 [facility] Comment on above: Result Comment: Elec tronically Signed By: Tushar Nunez MD, Jude Farias\.br\Date and Time Signed: 08/07/20 11:22 EDT ECG 12-Leadon 07-24-2020 ECG 12-Lead [id number]: 127 [facility] ED Note-Physicianon 07-25-19 ED Note-Physician [id number]:1 27 [facility] Lab Reportson 07-24-2020 Lab Reports [id number]: 127 [facility] Lab Reports [id number]#1.00CD: 127 [facility] RAD - MISCon 07-24-2020 RAD - MISC [id number]: 127 [facility] Insurance Correspondence Off iceon 07-20-2020 Insurance Correspondence Office [id number]: 127 [facility] Operative Reporton Operative Report [id number]: 127 [facility] Physician Orderon 07-12-2020 Physician Order [id number]: 127 [facility] Pre-Authorization for Medica l Treatmenton 07-12-2020 Pre-Authorization for Medical Treatment [id number] :127 [facility] Ambulatory Clinical Summaryo 07-11-2020 Ambulatory Clinical Summary {[id number] }CD:[id number] [facility] Patient Educationon 07-12-19 Patient Education Obstetrics and Gynecology Urethral Vaginal Sling A urethral vaginal sling procedure is surgery to correct urinary incontinence. Urinary incontinence is passing urine without one's control. It is common in older women, and in women who have had children. In this surgery, a strong piece of material is placed under the tube that drains the bladder (urethra). This sling is made of tension-free vaginal tape or nylon mesh. It fits under the urethra like a hammock. The sling is put in position to straighten, support, and hold the urethra in its normal position. Tell a health care provider about: ? Any allergies you have. ? All medicines you are taking, including vitamins, herbs, eye drops, creams, and qywr-pgx-lbkxila medicines. ? Any problems you or family members have had with anesthetic medicines. ? Any blood disorders you have. ? Any surgeries you have had. ? Any medical conditions you have. ? Whether you are or may be . What are the risks? Generally, this is a safe procedure. However, problems may occur, including: ? Infection. ? Excessive bleeding. ? Allergic reactions to medicines. ? Damage to other structures or organs. ? Problems urinating for several days or weeks. ? Return of the urinary incontinence. ? Mesh failure. Be sure to talk with your health care provider about the options you have for sling material and the risks associated with each material. What happens before the procedure? Staying hydrated Follow instructions from your health care provider about hydration, which may include: ? Up to 2 hours before the procedure ? you may continue to drink clear liquids, such as water, clear fruit juice, black coffee, and plain tea. Eating and drinking restrictions Follow instructions from your health care provider about eating and drinking, which may include: ? 8 hours before the procedure ? stop eating heavy meals or foods such as meat, fried foods, or fatty foods. ? 6 hours before the procedure ? stop eating light meals or foods, such as toast or cereal. ? 6 hours before the procedure ? stop drinking milk or drinks that contain milk. ? 2 hours before the procedure ? stop drinking clear liquids. Medicines ? Ask your health care provider about: ? Changing or stopping your regular medicines. This is especially important if you are taking diabetes medicines or blood thinners. ? Taking awcl-pni-qtcegpl medicines, vitamins, herbs, and supplements. ? Taking medicines such as aspirin and ibuprofen. These medicines can thin your blood. Do not take these medicines unless your health care provider tells you to take them. ? You may be given antibiotic medicine to help prevent infection. General instructions ? Ask your health care provider how your surgical site will be marked or identified. ? You may be asked to shower with a germ-killing soap. ? Do not use any products that contain nicotine or tobacco, such as cigarettes and e-cigarettes, for 2 weeks before the surgery. If you need help quitting, ask your health care provider. ? Plan to have someone take you home from the hospital or clinic. What happens during the procedure? ? To reduce your risk of infection: ? Your health care team will wash or sanitize their hands. ? Hair may be removed from the surgical area. ? Your skin will be washed with soap. ? An IV will be inserted into one of your veins. ? You will be given one or both of the following: ? A medicine to make you fall asleep (general anesthetic). ? A medicine that is injected into your spine to numb the area below and slightly above the injection site (spinal anesthetic). ? A catheter will be placed in your bladder to drain urine during the procedure. ? An incision will be made in your vagina and on the lower part of your abdomen. ? The sling material will be passed around your bladder neck and stitched (sutured) to the muscles to hold the urethra in its normal position. ? The incisions will then be closed with sutures. The procedure may vary among health care providers and hospitals. What happens after the procedure? ? Your blood pressure, heart rate, breathing rate, and blood oxygen level will be monitored until the medicines you were given have worn off. ? You will have a catheter in place to drain your bladder. This will stay in place until your bladder is working properly on its own. ? You may have a gauze packing in the vagina to prevent bleeding. This will be removed in 1?2 days. Summary ? A urethral vaginal sling procedure is surgery to correct urinary incontinence. ? In this surgery, a strong piece of material is placed under the urethra to hold it in its normal position. ? Follow instructions from your health care provider about eating and drinking before the procedure. ? After surgery, you will have a urinary catheter in place until your bladder works properly on its own again. This information is not intended to r (more content not included)... Normal [facility] Urology Office/Clinic Noteon 07-11-2020 Urology Office/Clinic Note Chief Complaint 3 week follow up This patient is a 75-year-old female with a history of a grade 2 midline cystocele. She is here today to discuss treatment options. She does have some symptoms of stress incontinence. She underwent cystoscopic examination with dilation of her urethra on May 08 2020. [facility] Staff Zachary is a 75 y.o. female here for 2 week follow up. S/P cysto w/ UD done on 05/18/20. States she is sore and can feel her bladder sticks out. She is not on any OAB medications. She still complains of frequent urination and loosing control. PVR today is 0ml. Denies Incomplete bladder emptying: Yes Hematuria: None Frequency: Yes Urgency: on occasion Nocturia: 1 x a night Stream: Stream is steady Leaking: Yes Post void dripping: yes Wearing pads/ Depends: Padding on occasion Urge incontinence: Denies Stress incontinence: Yes Incontinence without Sensory Awareness: Denies Abdominal pain: Suprapubic pain Flank pain: Denies Sexual complaints: _ History of Present Illness reviewed UA. Reviewed last encounter. There have been no associated fever, chills, flank pain or blood in the urine. Review of Systems ROS - Provider Constitutional: denies weight loss, denies hot flashes. Eyes: denies eye problems. Gastrointestinal: denies nausea, denies vomiting. Cardiovascular: denies chest pain or angina. Integumentary: no dryness Musculoskeletal: denies musculoskeletal symptoms. ENMT: denies otolaryngeal symptoms. Respiratory: no shortness of breath. Heme/Lymph: denies easy bleeding tendency, denies easy bruising tendency. Psychiatric: no confusion, no anxiety. Genitourinary: denies vaginal discharge, mild incontinence, denies dysuria, denies hematuria, moderate urinary frequency, denies amenorrhea, denies menorrhagia, denies abnormal bleeding, denies pelvic pain, denies genital sores, and denies decreased libido. Post dripping. Physical Exam Vitals & Measurements HR: 80(Peripheral) BP: 148/90 HT: 163.0 cm HT: 163 cm WT: 68.0 kg WT: 68 kg BMI: 25.59 General Appearance: alert , no acute distress, well nourished, well developed female. Head: normocephalic . Eyes: normal orbit and globe. ENMT: normal examination of external ears. Chest: Lungs CTA, respirations non labored . Cardiovascular: regular rate and rhythm. Abdomen: soft, non distended, no tenderness, no mass or organomegaly, no hernia. Genitourinary: bladder nonpalpable, no flank tenderness. Grade 2 midline cystocele. Lymph Nodes: unremarkable palpation of the cervical area. Skin: warm, dry, no bruising. Psychiatric: cooperative, affect appropriate for age, normal judgement, euthymic mood. Assessment/Plan This patient is being scheduled for vaginal repair of a cystocele. The procedure, risk, alternatives and potential complications have been discussed with the patient. All of her questions were answered. Informed consent has been obtained. Preop orders are being written. 1. Urinary, incontinence, stress female (N39.3: Stress incontinence (female) (male)) Pt is having sneezing and coughing. Pt is having to wear pads as a preventative when she leaves the house. Ordered: Measure Post Void residual urine and/or bladder capacity by US- non-imaging 86060 Urnls Dip Stick Auto w/o Microscopy POC 16558 Urology Procedure Order 2. Cystocele with prolapse (N81.4: Uterovaginal prolapse, unspecified) Found on Cysto done 06/15/20, Grade 2 Cystocele, pt is having pain and burning with urination. Pt is motivated to proceed with this procedure. Will schedule a Cystocele repair. Risks and Benefits were discussed with the patient. These include bleeding, infection, pain, and need for additional procedures. Pre-op consent reviewed with and obtained from patient. Order General anesthesia. Ordered: Urology Procedure Order 3. Postinfective urethral stricture in female (N35.12: Postinfective urethral stricture, not elsewhere classified, female) S/P Cysto/UD 06/15/20. Pt states that since the UD she is still having leakage. Ordered: Urology Procedure Order I have reviewed the previous health record information and history for this patient from Dr. Finley Follow-up With When Contact Information Tushar Nunez MD, Jude Farias, [facility] [address], [place] [id number]- Additional Instructions: Patient Education Urethral Vaginal Sling I, Libby Chambers, personally scribed for Dr. Finley on 07/11/2020 14:30:39. . Documentation recorded by the scribe, Libby Chambers, accurately reflects the services(s) I performed and decisions made by me. Authenticated by Dr. Finley on 07/11/2020 14:48:10. Problem List/Past Medical History Ongoing Arthritis Asthma Bladder infection Bladder outlet obstruction COPD mixed type Cystocele with prolapse Dysuria Flank pain Gross hematuria Hematuria High cholesterol History of UTI Hypertensio (more content not included)... Normal [facility] Comment on above: Result Comment: Elec tronically Signed By: Jude Finley Jr., MD\.br\Date and Time Signed: 07/11/20 14:49 EDT\.br\Electronically Co-Signed By: Libby Chambers MA\.br\Date and Time Co-Signed: 07/11/20 14:30 EDT Ambulatory Clinical Summaryo n 06-20-2020 Ambulatory Clinical Summary {[id number] }[id number] [facility] Patient Educationon 06-21-19 Patient Education Urology Urethral Dilation Urethral dilation is a procedure to stretch open (dilate) the urethra. The urethra is the tube that drains urine from the bladder out of the body. In women, the urethra opens above the vaginal opening. In men, the urethra opens at the tip of the penis. Urethral dilation is usually done to treat narrowing of the urethra (urethral stricture), which can make it difficult to pass urine. Urethral dilation widens the urethra so that you can pass urine normally. Urethral dilation is done through the urethral opening. There are no incisions made during the procedure. Tell a health care provider about: ? Any allergies you have. ? All medicines you are taking, including vitamins, herbs, eye drops, creams, and tfyw-rrv-zqvqeyf medicines. ? Any problems you or family members have had with anesthetic medicines. ? Any blood disorders you have. ? Any surgeries you have had. ? Any medical conditions you have. ? Whether you are or may be . What are the risks? Generally, this is a safe procedure. However, problems may occur, including: ? Bleeding. ? Infection. ? A return of urethral stricture, which requires repeating the dilation procedure. ? Damage to the urethra, which may require reconstructive surgery. ? Allergic reactions to medicines. What happens before the procedure? Medicines Ask your health care provider about: ? Changing or stopping your regular medicines. This is especially important if you are taking diabetes medicines or blood thinners. ? Taking medicines such as aspirin and ibuprofen. These medicines can thin your blood. Do not take these medicines unless your health care provider tells you to take them. ? Taking boey-jld-uygbcae medicines, vitamins, herbs, and supplements. General instructions ? Follow instructions from your health care provider about eating or drinking restrictions. ? Plan to have someone take you home from the hospital or clinic. ? If you will be going home right after the procedure, plan to have someone with you for 24 hours. ? Ask your health care provider what steps will be taken to help prevent infection. These may include: ? Washing skin with a germ-killing soap. ? Taking antibiotic medicine. What happens during the procedure? ? An IV may be inserted into one of your veins. ? You will be given one or more of the following medicines: ? A local anesthetic to numb your urethral opening. This will be applied as a gel that will also lubricate the urethral opening. ? A sedative to help you relax. ? A thin tube with a light and camera on the end (cystoscope) will be inserted into your urethra. ? Your urethra will be rinsed (irrigated) with a germ-free (sterile) water solution. ? Narrow parts of your urethra will be stretched open using a dilator tool. Your surgeon will start with a very thin dilator, then use wider dilators as needed. ? A thin tube with an inflatable balloon on the tip may be inserted into your urethra. The balloon may be inflated to help stretch your urethra open. ? Your urethra will be irrigated. The procedure may vary among health care providers and hospitals. What can I expect after the procedure? ? After the procedure, it is common to have: ? Burning pain when urinating. ? Blood in your urine. ? A need to urinate frequently. ? You will be asked to urinate before you leave the hospital or clinic. ? Your urine flow should improve within a few days. Follow these instructions at home: Medicines ? Take doef-bya-qmxkxxu and prescription medicines only as told by your health care provider. ? If you were prescribed an antibiotic medicine, take it as told by your health care provider. Do not stop taking the antibiotic even if you start to feel better. ? Ask your health care provider if the medicine prescribed to you: ? Requires you to avoid driving or using heavy machinery. ? Can cause constipation. You may need to take these actions to prevent or treat constipation: ? Take mssl-nsu-nfqcehq or prescription medicines. ? Eat foods that are high in fiber, such as beans, whole grains, and fresh fruits and vegetables. ? Limit foods that are high in fat and processed sugars, such as fried or sweet foods. General instructions ? Do not drive for 24 hours if you were given a sedative during your procedure. ? If you were sent home with a small, lubricated tube (catheter) to help keep your urethra open, follow your health care provider's instructions about how and when to use it. ? Drink enough fluid to keep your urine pale yellow. ? Return to your normal activities as told by your health care provider. Ask your health care provider what activities are safe for you. ? Keep all follow-up visits as told by your health care provider. This is important. Contact a health care provider if: ? Your urine is cloudy and smells bad. ? You develop new bleeding when you urinate. ? You pa (more content not included)... Normal [facility] Urology Office/Clinic Noteon 06-20-2020 Urology Office/Clinic Note Chief Complaint Patient is here for a 5 week follow up to cysto. This patient is status post recent cystoscopic examination and dilation of urethral narrowing on 06/15/2020. At that time she was found to have a grade 2 cystocele. I actually wanted to review back in the office for follow-up visit in a few weeks so it may determine if she has had any improvement after dilation. Is highly likely she will require surgical repair for her cystocele. HPI Staff Mariama is a 75 y.o. female here for a 5 week follow up. Previous Dx: bladder infection, bladder outlet obstruction, cystocele w/ prolapse, dysuria, flank pain, gross hematuria, hx of UTI postinfective urethral stricture, retention of urine, stress incontinence, urge incontinence. S/P cysto/UD done on 05/18/20, cystoscopy done on 06/15/20. Trace leukocytes in urine today. Patient states she has been having a strong odor from urine. Dysuria: denies burning but hurts when the bladder drops down Incomplete bladder emptying: yes Hematuria: denies Frequency: denies Urgency: occasionally Nocturia: 1x a night Stream: steady stream Leaking: denies Post void dripping: denies Wearing pads/ Depends: yes pads when leaving the house just in case Urge incontinence: denies Stress incontinence: yes coughing or sneezing Incontinence without Sensory Awareness: denies Abdominal pain: suprapubic pain and pressure Flank pain: denies Sexual complaints: _ History of Present Illness Tests Reviewed: Reviewed UA and OP report. I have reviewed the previous health record information and history for this patient from Dr. Finley I have reviewed and verified the staff HPI to be accurate for this encounter. There have been no associated fever, chills, flank pain, or blood in the urine. Denies any urinary infections since last encounter. Review of Systems PHQ Score Initial Depression Screen Score: 0 ROS - Provider Constitutional: denies weight loss, denies hot flashes. Eyes: denies eye problems. Gastrointestinal: denies nausea, denies vomiting. Cardiovascular: denies chest pain or angina. Integumentary: no dryness Musculoskeletal: denies musculoskeletal symptoms. ENMT: denies otolaryngeal symptoms. Respiratory: no shortness of breath. Heme/Lymph: denies easy bleeding tendency, denies easy bruising tendency. Psychiatric: no confusion, no anxiety. Genitourinary: denies vaginal discharge, denies incontinence, denies dysuria, denies hematuria, denies urinary frequency, denies amenorrhea, denies menorrhagia, denies abnormal bleeding, denies pelvic pain, denies genital sores, and denies decreased libido. Physical Exam Vitals & Measurements HR: 76(Peripheral) BP: 156/91 HT: 163.0 cm HT: 163 cm WT: 68.0 kg WT: 68 kg BMI: 25.59 General Appearance: alert , no acute distress, well nourished, well developed female. Genitourinary: bladder nonpalpable, no flank pain. Assessment/Plan This patient has a grade 2 cystocele. She underwent recent cystoscopic examination on 06/15/2020. I like her to take another 2 to 3 weeks to see if the dilation makes any difference at all and then will consider cystocele repair. She is highly motivated to have this repaired however her cystocele is not grade 3 or grade 4. She has had a hysterectomy therefore pessary will likely not be helpful. She did have a pessary in place many years ago prior to her hysterectomy. Urinalysis today showed no evidence of infection. We will see her back in the office in approximately 3 weeks. 1. Postinfective urethral stricture in female (N35.12: Postinfective urethral stricture, not elsewhere classified, female) Cysto U/D done 06/15/20. Patient states that she has not noticed any major urinary changes. Patient needs a couple more weeks to notice any changes at that time. 2. Urinary, incontinence, stress female (N39.3: Stress incontinence (female) (male)) Only with coughing and sneezing. Patient will wear pads as preventative when leaving home. 3. Cystocele with prolapse (N81.4: Uterovaginal prolapse, unspecified) Grade 2 level cystocele. Patient complains of discomfort with urination.. Patient has noticed that it is bulging out. Ordered: Urnls Dip Stick Auto w/o Microscopy POC 76467 I have reviewed the previous health record information and history for this patient from Dr. Finley Follow-up With When Contact Information Tushar Nunez MD, Jude Farias, [facility] [address] [place] [address]- Additional Instructions: 2 weeks Patient Education Urethral Dilation Maria Del Carmen Marr personally scribed for Dr. Finley on 06/20/2020 14:23:50. . Documentation recorded by the scribe, Maria Del Carmen Hernandez, accurately reflects the services(s) I performed and decisions made by me. Authenticated by Dr. Finley on 06/20/2020 14:34:50. Problem List/Past Medical History Ongoing Arthritis Asthma Bladder infection Bladder outlet obstruction COPD mixed type (more content not included)... Normal [facility] Comment on above: Result Comment: Elec tronically Signed By: Tushar Nunez MD, Jude Farias\.br\Date and Time Signed: 06/20/20 14:36 EDT\.br\Electronically Co-Signed By: Maria Del Carmen Hernandez MA\.br\Date and Time Co-Signed: 06/20/20 14:24 EDT Coding Summary.on 06-16-2020 Coding Summary. CD:[id number] Gh0b Ww+PGhlYWQ+AZ9GIOKyW08sl WDbsR8GF3hBUE2FLRVEAOSKE V8VRM7wtPU3MFqdM4IyfrOj CijblELiIV76JIv4BEQ8zNbo DFkccU9vnNCwN6u4NdUpDC84 mE17EUauPODaHyQ3LkAuwdnk bWFy X5opWpMefMFfXwa+PHRhYmxl IHdpZHRoPScxMDAlJyBzdHls BM8wIu8rVQXnBEBfuFswiXNo OiBj f4oyOLNcTAmcJZ2udYtzV0Fq tRH0GKAda6b9De50xSO+PHRk BVF2dQojZLbmz990KxCde9eg IDM3 kDTvLPryDGN2P49je9O9VKDz BMBhBUW5iED4aM0dzPvnofnc D7LowMPqHoI1GYQ8oBWieB9q bGln vgdlzL2uBjn+T36YMT1LJRFB TG4RHhn4C2LlIxnlaUC+PC90 TCJlJY27iXVthFWlb0ledCw6 JzEw DEJnVPE2dGlyDRfeo4DkLSRr U60qnJIfp6O1WYIivRqpeCFk BeFibDT9eR0yUAvsgntny9zg dzsn Ttgva0ulbw07mX27K28kPLah SLThXFE6XFCtJMMikPocmh6c iQ3wUm4+CPmkc8jeo6thmGq7 IjIw WFDxuaIaiUwqOQZ3z7WvSg22 O8YjpEqcd7GdQqy0ey78lVGn m9B7dBJ1CXszMJPtdY6kGBjo ZnQ6 EFRyDqKjhU19bBBoKRoqCr8n iGozvMzmWQ0nBDRuoagmKWGc oM3kGNHtvTYlcYvcXS6pOSKu bjtm u411QeFyMSG4BIQuxOTpS3Jq vX1iYqYpLGCrQWPrM4XnsANb HAutV773QMmcRwM2MHRbycNq Y2Fs GPQaaDroBxV2r2E0Yl1Mv4Gb vivyDZH6FQifXQH8SoAgSePr SnA5S7XzMpv0MANwbAohAF4e J3Bh VDXvhzauqmhhdNN2PNTkQESu rM31qAVzVSnrYh6or8H7j908 AALaMBHbrR40Cx8pnKtlKVRu dCBU rP0rkdlcr6cwjqpzOrJoRHVl LEi4NHp2VYDiqNmrNqSyEAF8 RbS6ZKO6nYNyzH0cnTruxkdd dG9w Oyc+H86tgQ2qRZW3LPP5hwms BODzquSkMV28SW75Y2ZeQyon dGFibGU+YVRozdRtyRjdUT7l YmFj r8eqa9SrJUdtF7WjLUBhQVks Bzc0ABOiRBJ9zZC6oG8uRDTn NGpok8P2eHG5X1DkafInwk8k b2xs AVHyYKylZ52emTBkc5W7HICw xNL9UXTcbRmpYoEhrJ53Zdn+ DDYasNbmq8NaLhrwx4hry0ey dGg9 AhBuEVZlgiAogHrrFAS2e3Ul Ng37U02rGFaoXCSrYVGtCSSn LLSvzYvpxf2muP5zUv1+PGNv bCB3 qHP8xJ5sUZJlZkA8DNstP013 DyNrxCWyUlvmg3pao6hxaUw6 XjHfWQUrorDsvTiuPKA3m7Hm Lz48 C03xZMckXRQyTWGbMBVqKJJj bAbxio9lyH5dHu9+TK6xy4bz hz33mV53jFW+QBEbSVE2dWid PSdw SQCktV7vLSptYtC7SHDjCmCd lN64sBHsRBeoKi8ywYvimTxe FE0iIDZtjqjpf511LyPnn1qp IDEw bBFrONldPCK5D16nn5P0WKNp TXMlEBX8tSA5pH1cgNuubacc bGVmdDsgdmVydGljYWwtYWxp Z246 IHRvcDsnPlBhdGllbnQgTmFt HJc3H3HzMch0VOBafPckXG5p bGSmFLqfUo9rqIvytAbqNE4e NTBp asaav574GxAxc2eaSWQceTQh EBbaWVJ2Y18xu5N1PIFeLNEn CCC3yKJ5tW0yfSgriukwgEVr dDsg acNzsKnnOXxjNCwmP679OTIh zHsfFwXxtoLlCESpkUN9JN68 IJ53pTKjz9I7uWT2I4HzZOQe bmct jpbmxKO3MRTxADUcgI38Bl3z nWqyGw7aSEYqDTM5CHMcdJTu H7CmdQ4iPwIoYJXyFILvJ5Gk eHQt OYevG066XEwbNxF8QVZqiwGb N1QeDHKbdWwmGxE4n5E3Nz4A O3N6ML11SB86gSYqy5J5sEI1 J3Bh NFIsmhkrrphagZO4CYKcKQAn fE47Gl1ebIaxVu9jTUEfKOX7 NYRudODiL4VzsH9vWdPiGJGy MDAw E1BcnLVcFPlsB764WAckKfH2 FBMgnwTcI2ApXPCoeYfbEaN2 r4U9Al9KJLm8KU88TF23aLAu c3R5 fYR7H1SuWLAuxihdhlvzxWG0 MRQlYQSnaK07Zo1stHqpIm3m MRHhGXT5SAFtgVIvT3LywS4z OiAj ZOJnHZMgJ3UyyVVgMRwsZ266 ULjpAlB4BULwbhUtH7EdASXz mJkfEsS1i0G1Is8PBYRnYT79 IFR5 oYU1CS74KQ01D5NkTbqiwHNo bGU+PHRhYmxlIHdpZHRoPScx NFYcGbKujErfRX3pTe3hFCUm LWNv pLspuQQmJsKur5icHEToKKbv OI9kdVecR3DtmNB5UUUoa4g7 Ai09B56nP0DjmEQ+PGNvbCB3 aWR0 nY3dPeVoVdQ5XWdmY014ZwXe cICaClfng2jzx6aglGk8AoQ2 KHYybyYzlVefECM2o8EbWv49 Y29s IHdpZHRoPSIxNSUiIHZhbGln yk7nkK5uYa8+NXXlgMI6gFX0 hN5dLtLfLmN8DMjeJ831AyBh cCIv Hhdab5bje8cozMu4GqCiAZVo lcMjpZqoKCX4r0UhAf76V0Kw mZuru8WxEhr9hp69bMVpv0B5 bGU9 J5ImGHTsrioizFHgmQanCK2j VVDvrchnRWOjzA1dZWJoR7x6 PaZsLwR5QEnkE8ZjuqO0BBOx cHQg YRfaOPF9M96ry1Y1ATKjNSCc FBF6wAP4zO3qjYexuizzrERf cRwxeePnhIisCPyfBAnqH398 IHRv qQawFSHcoQ3mLZPrePVfvRmw NW7kTUWchaiwIdmQU4vJMP2F LCBHUkVUVEEgQTwvdGQ+PHRk IHN0 aWxkZZdeCAZliZ8jPDHpY9s1 EuQjVjE7LQsyL4JvDPDvbibu Ag03zZ4cAvEyLfQ3VPudX1Ha bnQ6 IJVmxKFpUWgyJPH6P04hx3O0 HKWcWTInPAY9uSF4pF7kuKwq bjogbGVmdDsgdmVydGljYWwt YWxp S919USLxsCcfQnQaViInXdU9 INH3J0JaSma7WIVrkUsxXN4x lSFsKKulHn5ekEhnfSpqPG4f NTBp iaruEREnfO5mMTOhuFGydHng UB4gMDZjvdxrt458LcToVDH5 UUQnvEYlO9WgjB8bQbOvHQTi MDAw J1DlfQCzXBwuY878DDbtBnT1 HKLzfvNwH3SxBWIlhZtaBqH1 b1O0Rk38CqKWLLSyngorhLA+ PHRk SRI5sRlzOPhfZBPoyI5rHFQs A4g7ChRsGkS3ICckM3LsSKRa ekwcNg03mI3mJdHrJwI2XNee O2Zv igY5HHQxvPKmQKofMZO2N40o n8L4RKCxVWPqGSV5dWH2yU9i bGlnbjogbGVmdDsgdmVydGlj YWwt SAafC060MKYslXrsZiNdyDZe ZTwvdGQ+QAOoMWC9oPgnLIqa DSWyvT3mNWNyP8u6KxFeBzE3 MGlu B8IyQMUszyazLd55rZ7fQfJf OaT4NGorO7MuftM3AWIvdXCg STuxWKA7F58yo1V3KMFnDLMo MDA7 qKZ4fI9izTcrlqxofOMdvWae zrEwuIfhKCcpDSavB163YJJw xQxiEu48pNJgnPgjleF9E8Zv Pjwv dHI+QB30RWScWM10hVXpyNNp y5wwoGz2NgAdIPTuBRB0hQsp HTjvr5UmFAIfZ04wwUYvm9P1 IGNv jGnqjFMpZeNyuIZ4tS2uDGys oyjsv5qbhhboZwvhf1jubk68 qZ01J42iUMdkOQNaKLJhOZQa IHZh hOxess9emX9pHm4+PGNvbCB3 eZP4kK6wCcRyOmK1ZUloM365 PjQirJDyCodby5qmo5bqeKw8 IjIw FFRchhBepOryJFX8y8PcAf62 L63yFNqaLYRaXVAnKOAeWFLt zThoim8dxY4gDk6+YF6ra0wg cm91 qD72sZN+IEMsNIZ0aLkqUIaa VQQebE3rQVarKeO6JPZlWjBo oK23tZOpTGngLh3nmWxluJus MC4w UKCsykrmz908VtGrk4qlOUFy pYGnGWuhAGU7J10fo8L3NPBo ILPkCQW8rHC7mU4qzMuwqelt bGVm iXfuesYjiPiyIThlWPnpC233 ZMOfnFkvHlGqqFFuG7hcqcRB IG6pJckvnUK+ROShSJO2uLrl PSdw JZMxiS2ySVDvK4w5QkFsHsH2 UVamC4GkdwS4VNKysZFjPKHl dBIAfU7tlegwp5btiqmkEnTh MDAw YVr0WTr2UUIegHbcUmNeZRR6 PvE7JYR4fXYhqR0tnKvqfjmv eG9hIvk+RklOOjwvdGQ+PHRk IHN0 zSdxBPbrANUdxZ6iFOFwB0h1 YcPmOcC9VKfqO4BpdrW5RDVh vORsBHKxkYIBgT3aciqvh1rr cjog QlGgLMRxAOd0OOs6LPDyqGvh OeSlELZ0KxB8FVS4qXDpgR4e mZtiohqvuV1rXfq+TVJOOjwv dGQ+ ZFJaHWI0qFkbEJncMPNpbT0g XFXxX3h7UsMsNxI7NDgnW8Eq kbG2LGYdmVGzEDGjpCCBmV7p cztj h9ftcqptQwUiHBUfFWb5MEz9 TBEcnJqdPcZiQCL4HfC2NHA1 yOGsrH3wpElmltfoxY5aRii+ UGF5 IVR8IR85NK60K1GoDcuwwIDm bGU+PHRhYmxlIHdpZHRoPScx MCQxPcAkoEjaHK7bQr3vWNAl LWNv bGxh (more content not included)... Normal [facility] Consent for Procedure/Surger yon 06-15-2020 Consent for Procedure/Surgery [id number]#1.00CD :127 Normal [facility] Consent for Treatmenton 05-26 Consent for Treatment [id number]#1.00CD: 127 Normal [facility] Discharge Instructionson Discharge Instructions [id number]#1.00CD :127 Normal [facility] IntraOperative Documentson 0 06-15-2020 IntraOperative Documents [id number]#1.00CD :127 Normal [facility] Main OR Intraoperative Recor don 06-15-2020 Main OR Intraoperative Record IntraOp Document Type FTURO Summary Primary Physician: Jude Finley Jr., MD Finalized Date/Time: 06/15/20 15:02:47 Pt. Name: ZACHARY MAYNARD Srinath Cordero/Sex: 1945 Female Med Rec #: [id number] Physician: Jude Finley Jr., MD Financial #: [id number] Pt. Type: O Room/Bed: / Admit/Disch: 06/15/20 13:40:05 - Institution: Case Times FTURO Entry 1 Patient Times In Room 06/15/20 14:48:00 Out Room 06/15/20 15:02:00 Procedure Times Start 06/15/20 14:50:00 Stop 06/15/20 14:52:00 Anesthesia Times Last Modified By: Sirisha Manuel RN 06/15/20 15:02:42 Case Attendance FTURO Entry 1 Entry 2 Entry 3 Case Attendee Tushar Nunez MD, Jude Farias [facility], Pauly Manuel RN, Sirisha Douglass Role Performed Surgeon - Primary Scrub - Primary Catering Coordinator - Primary Time In 06/15/20 14:48:00 06/15/20 14:48:00 06/15/20 14:48:00 Time Out 06/15/20 15:02:00 06/15/20 15:02:00 06/15/20 15:02:00 Procedure CYSTOSCOPY LOCAL(.) CYSTOSCOPY LOCAL(.) CYSTOSCOPY LOCAL(.) Comments Last Modified By: Mar MELGAR, Sirisha Manuel RN, Sirisha Naqvi RN 06/15/20 15:02:43 06/15/20 15:02:43 06/15/20 15:02:43 Surgical Procedures FTURO Entry 1 Procedure Description Procedure CYSTOSCOPY LOCAL Modifiers . Surgeon Description CYSTOSCOPY LOCALWITH URETHRAL DILATION Primary Procedure Yes Primary Surgeon Jude Finley Jr., MD Start 06/15/20 14:50:00 Stop 06/15/20 14:52:00 Anesthesia Type Local Surgical Service Urology Wound Class 2 - Clean-Contaminated Last Modified By: Sirisha Manuel RN 06/15/20 14:53:50 General Case Data FTURO Pre-Care Text: Classifies surgical wound, implements aseptic technique, initiates traffic control Entry 1 Case Information OR URO 1 FT Case Level None Wound Class 2 - Clean-Contaminated Specialty Urology Preop Diagnosis CYSTO MAXWELL W/ PROLAPSE Postop Same As Preop Yes Postop Diagnosis CYSTO MAXWELL W/ PROLAPSE Outcomes Met? Yes Last Modified By: Sirisha Manuel RN 06/15/20 14:21:48 Post-Care Text: The patient is free from signs and symptoms of infection EU IntraOp - FTURO Pre-Care Text: Implements protective measures prior to operative or invasive procedure, confirms identity before the operative or invasive procedure, verifies operative procedure, surgical site, and laterality Entry 1 EU Perioperative Protocols Procedure(s) CYSTOSCOPY LOCAL(.) Patient Identity Birthday, ID Band Verified (select at Check, Patient least 2): Participation Consents / H and P HandP, Surgery/Procedure Operative Site N/A Verified Consent Marking Verified Surgical Site Yes Laterality Verified Yes Verified Procedure Verified Yes Correct Patient Yes Position Verified Availability Equipment, Medication Time Out Jude Finley Jr., MD, Verified ([facility] Sirisha Manuel RN Time Out Complete 06/15/20 14:49:00 Allergies Reviewed? Yes Allergies Reviewed Self/Patient With Body Position Supine Prep Area PERINEUM Prep Agents Betadine Solution Skin. Condition Dry, Warm, Unable to Description UNABLE TO VISUALIZE DUE Visualize TO PATIENT PARTIALLY CLOTHED Additional None Specimens Collected Vitals - EU Blood Pressure 179/95 Pulse 77 bpm Respirations 18 br/min SPO2 EBL 0 IandO - EU Total Intake 0 mL Total Output 0 mL Outcomes Met? Yes Last Modified By: Sirisha Manuel RN 06/15/20 14:50:10 Post-Care Text: The patient is free from signs and symptoms of injury caused by extraneous objects Sign Out FTURO Entry 1 Before Patient Leaves OR Nurse verbally Yes Nurse verbally Yes confirms with the confirms with the team the name of team that the procedure(s) instrument, sponge, recorded and needle counts are correct (or N/A) Nurse verbally n/a Nurse verbally Yes confirms with the confirms with the team how the team whether there specimen is labeled are any equipment (including patient problems to be name), if applicable addressed Sign Out Complete 06/15/20 14:53:00 Last Modified By: Sirisha Manuel RN 06/15/20 14:53:56 Case Comments Finalized By: Sirisha Manuel RN Document Signatures Signed By: Sirisha Manuel RN 06/15/20 15:02 Normal [facility] Main OR Preoperative Recordo n 06-15-2020 Main OR Preoperative Record Holding Area Document Type FTURO Summary Primary Physician: Jude Finley Jr., MD Finalized Date/Time: 06/15/20 14:34:27 Pt. Name: ALEYDA, ZACHARY Yo D.O.B./Sex: 1945 Female Med Rec #: [id number] Physician: Jude Finley Jr., MD Financial #: [id number] Pt. Type: O Room/Bed: / Admit/Disch: 06/15/20 13:40:05 - Institution: Case Times Holding FTURO Pre-Care Text: Verifies consent for planned procedure, identifies individual values and wishes concerning care, includes family members in perioperative teaching Secures patient's records' belongings, and valuables, maintains patient's dignity and privacy, and maintains patient confidentiality Entry 1 In Holding 06/15/20 14:22:00 Outcomes Met? Yes Last Modified By: Shabana Terrell LPN 06/15/20 14:22:53 Post-Care Text: The patient participates in decisions affecting his or her perioperative plan of care The patient's right to privacy is maintained Surgery Checklist FTURO Entry 1 Patient Birthday, ID Band Procedure History and Physical, Identification: Check, Patient Verification: Surgical Consent, With Participation Patient NPO after Midnight: n/a Personal Items: Cataract Lens Implant, Dentures, Glasses Limitations: cane Complaints of Pain: Yes Pain Comment: pelvic area Skin Integrity Unable to Visualize Vitals - EU Blood Pressure 179/95 Pulse 77 bpm Respirations 18 br/min SPO2 RN Reviewed Yes Last Modified By: Sirisha Manuel RN 06/15/20 14:34:26 General Comments: Temp. 36 Finalized By: Sirisha Manuel RN Document Signatures Signed By: Shabana Terrell LPN 06/15/20 14:25 Sirisha Manuel RN 06/15/20 14:34 Normal [facility] Operative Reporton Operative Report Patient: ZACHARY MAYNARD Age: 75 years Sex: Female : 1945 Associated Diagnoses: None Author: Tushar Nunez MD, Jude Farias Procedure Operative Information Details: Date/ Time: 06/15/2020 14:57:00. Pre-Op Dx: Cystocele (midline). Post-Op Dx: Same. Anesthesia Type: Local. Procedure: Local Cystoscopy with Urethral Dilation. Complications: None. Risks/Benefits/Informed Consent: Surgical risks, benefits, details of the procedure have been explained to the patient, Full informed consent has been obtained. Intraoperative Information Prepped: Patient is brought back to the endoscopy suite, Patient is placed in modified dorso/lithotomy position, Patient prepped in the usual fashion with Betadine solution, 2% Xylocaine Jelly is placed per Urethra, After waiting several minutes the Cystoscope is introduced. The Urethra is: Tight. The Bladder is: Normal, Trabeculated Mild (1), A midline grade 2 cystocele was noted. This was easily reducible. No rectocele was identified.. The ureteral orifices: Show efflux of clear urine. The Urethra was dilated to: 24 Algerian w/ sounds. Devices Implanted: None. Removal: Cystoscope is removed, The patient tolerated it well. Postoperative Information Discharge: Patient is discharged home with antibiotic coverage, Follow up arranged, Office visit will be planned to make arrangements for repair of cystocele.. Normal [facility] Comment on above: Result Comment: Elec tronically Signed By: Jude Finley Jr., MD\.br\Date and Time Signed: 06/15/20 14:59 EDT Pre-Authorization for Medica l Treatmenton 06-13-2020 Pre-Authorization for Medical Treatment [id number] :127 Normal [facility] Ambulatory Clinical Summaryo n 06-12-2020 Ambulatory Clinical Summary {[id number] }CD:[id number] Normal [facility] Patient Educationon 06-13-19 Patient Education Urology Urinary Incontinence Urinary incontinence refers to a condition in which a person is unable to control where and when to pass urine. A person with this condition will urinate when he or she does not mean to (involuntarily). What are the causes? This condition may be caused by: ? Medicines. ? Infections. ? Constipation. ? Overactive bladder muscles. ? Weak bladder muscles. ? Weak pelvic floor muscles. These muscles provide support for the bladder, intestine, and, in women, the uterus. ? Enlarged prostate in men. The prostate is a gland near the bladder. When it gets too big, it can pinch the urethra. With the urethra blocked, the bladder can weaken and lose the ability to empty properly. ? Surgery. ? Emotional factors, such as anxiety, stress, or post-traumatic stress disorder (PTSD). ? Pelvic organ prolapse. This happens in women when organs shift out of place and into the vagina. This shift can prevent the bladder and urethra from working properly. What increases the risk? The following factors may make you more likely to develop this condition: ? Older age. ? Obesity and physical inactivity. ? and childbirth. ? Menopause. ? Diseases that affect the nerves or spinal cord (neurological diseases). ? Long-term (chronic) coughing. This can increase pressure on the bladder and pelvic floor muscles. What are the signs or symptoms? Symptoms may vary depending on the type of urinary incontinence you have. They include: ? A sudden urge to urinate, but passing urine involuntarily before you can get to a bathroom (urge incontinence). ? Suddenly passing urine with any activity that forces urine to pass, such as coughing, laughing, exercise, or sneezing (stress incontinence). ? Needing to urinate often, but urinating only a small amount, or constantly dribbling urine (overflow incontinence). ? Urinating because you cannot get to the bathroom in time due to a physical disability, such as arthritis or injury, or communication and thinking problems, such as Alzheimer disease (functional incontinence). How is this diagnosed? This condition may be diagnosed based on: ? Your medical history. ? A physical exam. ? Tests, such as: ? Urine tests. ? X-rays of your kidney and bladder. ? Ultrasound. ? CT scan. ? Cystoscopy. In this procedure, a health care provider inserts a tube with a light and camera (cystoscope) through the urethra and into the bladder in order to check for problems. ? Urodynamic testing. These tests assess how well the bladder, urethra, and sphincter can store and release urine. There are different types of urodynamic tests, and they vary depending on what the test is measuring. To help diagnose your condition, your health care provider may recommend that you keep a log of when you urinate and how much you urinate. How is this treated? Treatment for this condition depends on the type of incontinence that you have and its cause. Treatment may include: ? Lifestyle changes, such as: ? Quitting smoking. ? Maintaining a healthy weight. ? Staying active. Try to get 150 minutes of moderate-intensity exercise every week. Ask your health care provider which activities are safe for you. ? Eating a healthy diet. ? Avoid high-fat foods, like fried foods. ? Avoid refined carbohydrates like white bread and white rice. ? Limit how much alcohol and caffeine you drink. ? Increase your fiber intake. Foods such as fresh fruits, vegetables, beans, and whole grains are healthy sources of fiber. ? Pelvic floor muscle exercises. ? Bladder training, such as lengthening the amount of time between bathroom breaks, or using the bathroom at regular intervals. ? Using techniques to suppress bladder urges. This can include distraction techniques or controlled breathing exercises. ? Medicines to relax the bladder muscles and prevent bladder spasms. ? Medicines to help slow or prevent the growth of a man's prostate. ? Botox injections. These can help relax the bladder muscles. ? Using pulses of electricity to help change bladder reflexes (electrical nerve stimulation). ? For women, using a medical claims assistant to prevent urine leaks. This is a small, tampon-like, disposable device that is inserted into the urethra. ? Injecting collagen or carbon beads (bulking agents) into the urinary sphincter. These can help thicken tissue and close the bladder opening. ? Surgery. Follow these instructions at home: Lifestyle ? Limit alcohol and caffeine. These can fill your bladder quickly and irritate it. ? Keep yourself clean to help prevent odors and skin damage. Ask your doctor about special skin creams and cleansers that can protect the skin from urine. ? Consider wearing pads or adult diapers. Make sure to change them regularly, and always change them right after experiencing incontinence. General instructions ? Take mlon-qsy-baapwgo and prescription medicines only as (more content not included)... Normal [facility] Urology Office/Clinic Noteon 06-12-2020 Urology Office/Clinic Note Chief Complaint Patient is here for a follow up to [facility] for ball like object HPI Staff Zachary is a 75 y.o. female here for follow up to [facility] for bladder hanging out, patient insists on planning surgery. Previous Dx: bladder infection, bladder outlet obstruction, dysuria, flank pain, gross hematuria, history of UTI, retention of urine, urethral stricture. 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 Patient was seen at [facility] on 06/07/20 for a ball like object that seemed up against the urethra causing pain, once she voided for the ER the ball was gone and she had no more dysuria. CT, US, and KUB were done all showing no abnormalities. Small leukocytes in urine today. Patient states her bladder is floating . She says its affecting her bowels. Dysuria: irritated Incomplete bladder emptying: yes Hematuria: denies Frequency: denies Urgency: sometimes Nocturia: 2x a night Stream: sometimes strains to get the rest out to relieve pressure, stream has weakness occasionally Leaking: denies Post void dripping: denies Wearing pads/ Depends: mini pad just incase but the ball object causes friction occasionally Urge incontinence: denies Stress incontinence: yes coughing, sneezing, laughing Incontinence without Sensory Awareness: denies Abdominal pain: suprapubic pain Flank pain: occasional flank pain Sexual complaints: _ History of Present Illness Pt is here for follow up to ER visit due to Cystocele Reviewed UA Pt has no associated symptoms, no fever, no chills, no flank pain. I have reviewed the previous health record information and history for this patient from Dr. Finley Review of Systems PHQ Score Initial Depression Screen Score: 0 ROS - Provider Constitutional: denies weight loss, denies hot flashes. Eyes: denies eye problems. Gastrointestinal: denies nausea, denies vomiting. Cardiovascular: denies chest pain or angina. Integumentary: no dryness Musculoskeletal: denies musculoskeletal symptoms. ENMT: denies otolaryngeal symptoms. Respiratory: no shortness of breath. Heme/Lymph: denies easy bleeding tendency, denies easy bruising tendency. Psychiatric: no confusion, no anxiety. Genitourinary: denies vaginal discharge, denies incontinence, denies dysuria, denies hematuria, denies urinary frequency, denies amenorrhea, denies menorrhagia, denies abnormal bleeding, denies pelvic pain, denies genital sores, and denies decreased libido. Physical Exam Vitals & Measurements HR: 72(Peripheral) BP: 168/101 HT: 163.0 cm HT: 163 cm WT: 68.7 kg WT: 68.7 kg BMI: 25.86 General Appearance: alert , no acute distress, well nourished, well developed female. Head: normocephalic . Eyes: normal orbit and globe. ENMT: normal examination of external ears. Chest: Lungs CTA, respirations non labored . Cardiovascular: regular rate and rhythm. Abdomen: soft, non distended, no tenderness, no mass or organomegaly, no herni Lymph Nodes: unremarkable palpation of the cervical area. Skin: warm, dry, no bruising. Psychiatric: cooperative, affect appropriate for age, normal judgement, euthymic mood. Assessment/Plan Will schedule Cysto w/Pelvic Exam. Likely has a cystocele and possible pelvic floor prolapse. Hopefully this will be amenable to a cystocele repair. We will discuss this after her examination including the cystoscopic exam. Procedure, risk, alternatives and potential complications have been discussed with the patient. Informed consent has been obtained. 1. Cystocele with prolapse (N81.4: Uterovaginal prolapse, unspecified) Pt was advised that a Cystocele is not an emergency. The risks and benefits for cystoscopy have been discussed. The risks include bleeding, infection, and irritation of the bladder and urinary channel, among others. The patient, after being informed of procedural details and after questions have been answered, wishes to proceed. Full informed consent has been obtained. Will order Local anesthesia. 2. 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 Urge incontinence (N39.41: Urge incontinence) Mild-Moderate, pt wears a mini pad for protection 4. Stress incontinence (N39.3: Stress incontinence (female) (male)) Mild, ongoinng Follow-up With When Contact Information Jude Finley Jr., MD [phone] Additional Instructions: Patient Education Urinary Incontinence I, Anastasia Cabral, personally scribed for Dr. Finley on 06/12/2020 10:24:21. . Documentation recorded by the Anastasia rdz accurately reflects the services(s) I performed and decisions made by me. Authenticated by Dr. Finley on 06/12/2020 10:28:20. Problem List/Past Medical History Ongoing Arthritis Asthma Bladder infection Bladder outlet obstruction COPD mixed type Cystocele with prolapse Dysuria Flank pain Gross hematuria (more content not included)... Normal [facility] Comment on above: Result Comment: Elec tronically Signed By: Jude Finley Jr., MD\.br\Date and Time Signed: 06/12/20 10:30 EDT\.br\Electronically Co-Signed By: Anastasia Cabral\.br\Date and Time Co-Signed: 06/12/20 10:24 EDT Coding Summary.on 05-23-2020 Coding Summary. CODING DATE: 021 FINAL [facility] STATUS: Home (Routine DC) PAYOR: Medicare APC DESCRIPTION 5373 Level 3 Urology and Related Services ADMIT DX: REASON FOR VISIT DX: R35.0 Frequency of micturition FINAL DX: PRINCIPAL: R35.0 Frequency of micturition SECONDARY: R39.15 Urgency of urination Z87.440 Personal history of urinary (tract) infections N35.028 Other post-traumatic urethral stricture, female R39.198 Other difficulties with micturition R33.9 Retention of urine, unspecified R39.12 Poor urinary stream R35.1 Nocturia N35.82 Other urethral stricture, female I10 Essential (primary) hypertension PYMT PROC APC STAT DESCRIPTION DOCTOR NAME DATE NOTE: The code number assigned matches the documented diagnosis and / or procedure in the patient's chart. However, the narrative phrase printed from the coding software may appear abbreviated, or result in slightly different terminology. Coded By: Ryann Villegas Date Saved: 05/23/2020 09:34 am [facility] Consenton 05-22-2020 Consent [id number]#[id number]: 127 [facility] Consent for Procedure/Surger yon 05-18-2020 Consent for Procedure/Surgery [id number]#1.00CD :127 [facility] Consent for Treatmenton 04-25 Consent for Treatment [id number]#1.00CD :127 [facility] Consent for Treatment [id number]: 127 [facility] Discharge Instructionson Discharge Instructions [id number] :127 [facility] IntraOperative Documentson 0 05-18-2020 IntraOperative Documents [id number]#[id number] :127 [facility] Main OR Intraoperative Recor don 05-18-2020 Main OR Intraoperative Record IntraOp Document Type FTURO Summary Primary Physician: Jude Finley Jr., MD Finalized Date/Time: 05/18/20 14:11:35 Pt. Name: MARIAMA MAYNARD/Sex: 1945 Female Med Rec #: [id number] Physician: Jude Finley Jr., MD Financial #: [id number] Pt. Type: O Room/Bed: / Admit/Disch: 05/18/20 13:20:33 - Institution: Case Times FTURO Entry 1 Patient Times In Room 05/18/20 13:57:00 Out Room 05/18/20 14:08:00 Procedure Times Start 05/18/20 13:58:00 Stop 05/18/20 13:59:00 Anesthesia Times Last Modified By: RYLAND Glasgow RN, Lou Ann 05/18/20 14:09:40 Case Attendance FTURO Entry 1 Entry 2 Entry 3 Case Attendee Tushar Nunez MD, Jude Glasgow RN, ETHANORLuz CST, Kimberly A Role Performed Surgeon - Primary Catering Coordinator - Primary Scrub - Primary Time In 05/18/20 13:57:00 05/18/20 13:57:00 05/18/20 13:57:00 Time Out 05/18/20 14:03:00 05/18/20 14:03:00 05/18/20 14:03:00 Procedure CYSTOSCOPY LOCAL WITH CYSTOSCOPY LOCAL WITH CYSTOSCOPY LOCAL WITH URETHRAL DILATION(.) URETHRAL DILATION(.) URETHRAL DILATION(.) Comments Last Modified By: RYLAND Glasgow RN, Lou Ann Blank RN, CNOR, Lou Ann Blank RN, CNOR, Lou Ann 05/18/20 14:01:23 05/18/20 14:01:23 05/18/20 14:01:23 Surgical Procedures FTURO Entry 1 Procedure Description Procedure CYSTOSCOPY LOCAL WITH Modifiers . URETHRAL DILATION Surgeon Description CYSTOSCOPY LOCAL WITH URETHRAL DILATION Primary Procedure Yes Primary Surgeon Tushar Nunez MD, Jude Farias Start 05/18/20 13:58:00 Stop 05/18/20 13:59:00 Anesthesia Type Local Surgical Service Urology Wound Class 2 - Clean-Contaminated Last Modified By: RYLAND Glasgow RN, Lou Ann 05/18/20 14:00:20 General Case Data FTURO Pre-Care Text: Classifies surgical wound, implements aseptic technique, initiates traffic control Entry 1 Case Information OR URO 1 FT Case Level None Wound Class 2 - Clean-Contaminated Specialty Urology Preop Diagnosis URINE RETENTION, Postop Same As Preop Yes URTERIAL STRICUTE and URGE INCONTINENCE Postop Diagnosis URINE RETENTION, Outcomes Met? Yes URTERIAL STRICUTE and URGE INCONTINENCE Last Modified By: RYLAND Glasgow RN, Lou Ann 05/18/20 13:55:22 Post-Care Text: The patient is free from signs and symptoms of infection EU IntraOp - FTURO Pre-Care Text: Implements protective measures prior to operative or invasive procedure, confirms identity before the operative or invasive procedure, verifies operative procedure, surgical site, and laterality Entry 1 EU Perioperative Protocols Procedure(s) CYSTOSCOPY LOCAL WITH Patient Identity ID Band Check, Patient URETHRAL DILATION(.) Verified (select at Participation least 2): Consents / H and P HandP, Surgery/Procedure Operative Site N/A Verified Consent Marking Verified Surgical Site Yes Laterality Verified n/a Verified Procedure Verified Yes Correct Patient Yes Position Verified Availability Equipment, Medication Time Out Tushar Nunez MD, Jude Farias, Verified (If Participants RYLAND Glasgow RN, Lou Applicable) Casa Flowers CST, Sirisha Yo Time Out Complete 05/18/20 13:57:00 Allergies Reviewed? Yes Allergies Reviewed Self/Patient With Body Position Frog Legged Prep Area PERENIUM Prep Agents Betadine Solution Skin. Condition Warm, Unable to Description CLOTHING ON Visualize Additional None Specimens Collected Vitals - EU Blood Pressure 146/83 Pulse 94 Respirations 18 SPO2 Blood Pressure 196/96 Pulse Respirations SPO2 EBL 0 IandO - EU Total Intake 0 mL Total Output 0 mL Outcomes Met? Yes Last Modified By: RYLAND Glasgow RN, Lou Ann 05/18/20 14:11:27 Post-Care Text: The patient is free from signs and symptoms of injury caused by extraneous objects Sign Out FTURO Entry 1 Before Patient Leaves OR Nurse verbally Yes Nurse verbally n/a confirms with the confirms with the team the name of team that the procedure(s) instrument, sponge, recorded and needle counts are correct (or N/A) Nurse verbally n/a Nurse verbally Yes confirms with the confirms with the team how the team whether there specimen is labeled are any equipment (including patient problems to be name), if applicable addressed Sign Out Complete 05/18/20 14:00:00 Last Modified By: RYLAND Glasgow RN, Lou Ann 05/18/20 14:00:09 Case Comments Finalized By: RYLAND Glasgow RN, Lou Ann Document Signatures Signed By: RYLAND Glasgow RN, Lou Ann 05/18/20 14:01 RYLAND Glasgow RN, Lou Ann 05/18/20 14:02 RYLAND Glasgow RN, Lou Ann 05/18/20 14:11 Normal [facility] Main OR Preoperative Recordo n 05-18-2020 Main OR Preoperative Record Holding Area Document Type FTURO Summary Primary Physician: Jude Finley Jr., MD Finalized Date/Time: 05/18/20 13:59:17 Pt. Name: MARIAMA MAYNARD /Sex: 1945 Female Med Rec #: [id number] Physician: Jude Finley Jr., MD Financial #: [id number] Pt. Type: O Room/Bed: / Admit/Disch: 05/18/20 13:20:33 - Institution: Case Times Holding FTURO Pre-Care Text: Verifies consent for planned procedure, identifies individual values and wishes concerning care, includes family members in perioperative teaching Secures patient's records' belongings, and valuables, maintains patient's dignity and privacy, and maintains patient confidentiality Entry 1 In Holding 05/18/20 13:39:00 Outcomes Met? Yes Last Modified By: Shabana Terrell LPN 05/18/20 13:39:57 Post-Care Text: The patient participates in decisions affecting his or her perioperative plan of care The patient's right to privacy is maintained Surgery Checklist FTURO Entry 1 Patient Birthday, ID Band Procedure History and Physical, Identification: Check, Patient Verification: Surgical Consent, With Participation Patient NPO after Midnight: n/a Personal Items: Cataract Lens Implant, Dentures, Glasses Limitations: uses cane Complaints of Pain: No Skin Integrity Unable to Visualize Vitals - EU Blood Pressure 146/83 Pulse 94 bpm Respirations 18 br/min SPO2 Additional None RN Reviewed Yes Specimens Collected Last Modified By: RYLAND Glasgow RN, Lou Ann 05/18/20 13:59:16 General Comments: Temp. 36 Finalized By: RYLAND Glasgow RN, Lou Ann Document Signatures Signed By: Shabana Terrell LPN 05/18/20 13:42 RYLAND Glasgow RN, Lou Ann 05/18/20 13:59 Normal [facility] Operative Reporton Operative Report Patient: Karl MAYNARD Age: 74 years Sex: Female : 1945 Associated Diagnoses: None Author: Tushar Nunez MD, Jude Farias Procedure Operative Information Details: Date/ Time: 05/18/2020 14:01:00. Pre-Op Dx: Frequency - R35.0, Urgency - R39.15, Hx of UTI's - Z87.440, Urethral Stricture - Female Post Trauma Urethral Stricture Female - N35.028. Post-Op Dx: Same. Anesthesia Type: Local. Procedure: Local Cystoscopy with Urethral Dilation. Complications: None. Risks/Benefits/Informed Consent: Surgical risks, benefits, details of the procedure have been explained to the patient, Full informed consent has been obtained. Intraoperative Information Prepped: Patient is brought back to the endoscopy suite, Patient is placed in modified dorso/lithotomy position, Patient prepped in the usual fashion with Betadine solution, 2% Xylocaine Jelly is placed per Urethra, After waiting several minutes the Cystoscope is introduced. The Urethra is: Tight. The Bladder is: Normal, Trabeculated Mild (1). The ureteral orifices: Show efflux of clear urine. The Urethra was dilated to: 28 Algerian w/ sounds. Devices Implanted: None. Removal: Cystoscope is removed, The patient tolerated it well. Postoperative Information Discharge: Patient is discharged home with antibiotic coverage, Follow up arranged. Normal [facility] Comment on above: Result Comment: Elec tronically Signed By: Tushar Nunez MD, Jude Farias\.br\Date and Time Signed: 05/18/20 14:02 EDT Ambulatory Clinical Summaryo n 05-11-2020 Ambulatory Clinical Summary {[id number] }[id number] Normal [facility] Patient Educationon 05-12-19 21 Patient Education Urinary Frequency The number of times a normal person urinates depends upon how much liquid they take in and how much liquid they are losing. If the temperature is hot and there is high humidity then the person will sweat more and usually breathe a little more frequently. These factors decrease the amount of frequency of urination that would be considered normal. The amount you drink is easily determined, but the amount of fluid lost is sometimes more difficult to calculate. Fluid is lost in two ways: ? Sensible fluid loss is usually measured by the amount of urine that you get rid of. Losses of fluid can also occur with diarrhea. ? Insensible fluid loss is more difficult to measure. It is caused by evaporation. Insensible loss of fluid occurs through breathing and sweating. It usually ranges from a little less than a quart to a little more than a quart of fluid a day. In normal temperatures and activity levels the average person may urinate 4 to 7 times in a 24-hour period. Needing to urinate more often than that could indicate a problem. If one urinates 4 to 7 times in 24 hours and has large volumes each time, that could indicate a different problem from one who urinates 4 to 7 times a day and has small volumes. The time of urinating is also an important. Most urinating should be done during the waking hours. Getting up at night to urinate frequently can indicate some problems. CAUSES The bladder is the organ in your lower abdomen that holds urine. Like a balloon, it swells some as it fills up. Your nerves sense this and tell you it is time to head for the bathroom. There are a number of reasons that you might feel the need to urinate more often than usual. They include: ? Urinary tract infection. This is usually associated with other signs such as burning when you urinate. ? In men, problems with the prostate (a walnut-size gland that is located near the tube that carries urine out of your body). There are two reasons why the prostate can cause an increased frequency of urination: ? An enlarged prostate that does not let the bladder empty well. If the bladder only half empties when you urinate then it only has half the capacity to fill before you have to urinate again. ? The nerves in the bladder become more hypersensitive with an increased size of the prostate even if the bladder empties completely. ? . ? Obesity. Excess weight is more likely to cause a problem for women more than for men. ? Bladder stones or other bladder problems. ? Caffeine. ? Alcohol. ? Medications. For example, drugs that help the body get rid of extra fluid (diuretics ) increase urine production. Some other medicines must be taken with lots of fluids. ? Muscle or nerve weakness. This might be the result of a spinal cord injury, a stroke, multiple sclerosis or Parkinson's disease. ? Long-standing diabetes can decrease the sensation of the bladder. This loss of sensation makes it harder to sense the bladder needs to be emptied. Over a period of years the bladder is stretched out by constant overfilling. This weakens the bladder muscles so that the bladder does not empty well and has less capacity to fill with new urine. ? Interstitial cystitis (also called painful bladder syndrome). This condition develops because the tissues that line the insider of the bladder are inflamed (inflammation is the body's way of reacting to injury or infection). It causes pain and frequent urination. It occurs in women more often than in men. DIAGNOSIS ? To decide what might be causing your urinary frequency, your healthcare provider will probably: ? Ask about symptoms you have noticed. ? Ask about your overall health. This will include questions about any medications you are taking. ? Do a physical examination. ? Order some tests. These might include: ? A blood test to check for diabetes or other health issues that could be contributing to the problem. ? Urine testing. This could measure the flow of urine and the pressure on the bladder. ? A test of your neurological system (the brain, spinal cord and nerves). This is the system that senses the need to urinate. ? A bladder test to check whether it is emptying completely when you urinate. ? Cytoscopy. This test uses a thin tube with a tiny camera on it. It offers a look inside your urethra and bladder to see if there are problems. ? Imaging tests. You might be given a contrast dye and then asked to urinate. X-rays are taken to see how your bladder is working. TREATMENT It is important for you to be evaluated to determine if the amount or frequency that you have is unusual or abnormal. If it is found to be abnormal the cause should be determined and this can usually be found out easily. Depending upon the cause treatment could include medication, stimulation of the nerves, or surgery. There are not too many things that you can do as an individual to change your urinary frequency. It is (more content not included)... Normal [facility] Urology Office/Clinic Noteon 05-11-2020 Urology Office/Clinic Note Chief Complaint decreased voiding This patient is a 74-year-old female with a history of urethral stenosis. She has a history of recurrent urinary tract infections that improved significantly after a cystoscopic examination and dilation of the urethra in November 2019. At present she states has had urinary frequency with some urgency and incomplete voiding. She thinks she needs another dilation. HPI Staff Pt is here due to decrease in voiding. Pt states that through out the day she is only voiding little volumes and at night she is getting up 3x a night with more volume. Pt states that she has any pressure and bloating through out the day and at night she gets some relief. This started last week. S/P Cysto/UD 11/2019. UA is clear. Pt was septic in November 2019. PVR 86ml Dysuria: no pain or burning Incomplete bladder emptying: not in the day time, only at night does she feel empty Hematuria: denies any blood in urine Frequency: decreased Urgency: mild/moderate Nocturia: 3x Stream: weak stream during the day and better at night, hesitation, Post void dripping: Wearing pads/ Depends: wearing pads Urge incontinence: intermittent Stress incontinence: none Incontinence without Sensory Awareness: she feels like she is but she is not Abdominal pain: pressure and bloating History of Present Illness Reviewed urine and pvr. There have been no associated fever, chills, flank pain or blood in the urine. Pt. denies any pain/burning with urination at this time. Review of Systems PHQ Score Initial Depression Screen Score: 0 ROS - Provider Constitutional: denies weight loss, denies hot flashes. Eyes: denies eye problems. Gastrointestinal: denies nausea, denies vomiting. Cardiovascular: denies chest pain or angina. Integumentary: no dryness Musculoskeletal: denies musculoskeletal symptoms. ENMT: denies otolaryngeal symptoms. Respiratory: no shortness of breath. Heme/Lymph: denies easy bleeding tendency, denies easy bruising tendency. Psychiatric: no confusion, no anxiety. Genitourinary: denies vaginal discharge, mild incontinence, denies dysuria, denies hematuria, denies urinary frequency, denies amenorrhea, denies menorrhagia, denies abnormal bleeding, denies pelvic pain, denies genital sores, and denies decreased libido. Physical Exam Vitals & Measurements HR: 85(Peripheral) RR: 18 BP: 150/82 HT: 163 cm HT: 163.0 cm WT: 64.2 kg WT: 64.2 kg BMI: 24.16 General Appearance: alert , no acute distress, well nourished, well developed female. Head: normocephalic . Eyes: normal orbit and globe. ENMT: normal examination of external ears. Chest: Lungs CTA, respirations non labored . Cardiovascular: regular rate and rhythm. Abdomen: soft, non distended, no tenderness, no mass or organomegaly, no hernia. Genitourinary: bladder nonpalpable, no flank tenderness. Lymph Nodes: unremarkable palpation of the cervical area. Skin: warm, dry, no bruising. Psychiatric: cooperative, affect appropriate for age, normal judgement, euthymic mood. Assessment/Plan This patient has been scheduled for cystoscopy and urethral dilation. Preop antibiotics have been ordered. Informed consent has been obtained. 1. Infrequent urination (R39.198: Other difficulties with micturition) Pt. states that this has started recently. Will schedule repeat Cysto with UD. The procedure risks, benefits, details, and treatment alternatives have been discussed with the patient. These include bleeding, infection, recurrent scar in over 50%, need for repeat dilation or other procedures, no symptom relief with dilation, among others. Full informed consent has been obtained. Will order Local anesthesia. ABX sent to [facility] in [place]. 2. Retention of urine (R33.9: Retention of urine, unspecified) PVR today - 86ml. Ordered: Urology Procedure Order 3. Weak urine stream (R39.12: Poor urinary stream) Weak stream w/ hesitation. Ordered: Urology Procedure Order 4. Urge incontinence (N39.41: Urge incontinence) Mild, intermittent. Ordered: Urology Procedure Order 5. Nocturia (R35.1: Nocturia) 3x/night. Ordered: Urology Procedure Order 6. Other urethral stricture, female (N35.82: Other urethral stricture, female) S/p Cysto/UD 12/02/2019. Ordered: Urology Procedure Order 7. History of UTI (Z87.440: Personal history of urinary (tract) infections) Pt. deneis any recent infections. UA today - neg. Orders: cephalexin, 500 mg = 1 cap(s), Oral, As Directed, take 1 cap one day before the procedure and 1 tab after the procedure, # 2 cap(s), Refills(s) 0, Pharmacy: [facility]/pharmacy #[id number], 163, cm, 05/11/20 8:31:00 EDT, Height/Length Dosing, 64.2, kg, 05/11/20 8:31:00 EDT, W... Measure Post Void residual urine and/or bladder capacity by US- non-imaging 74568 Urnls Dip Stick Auto w/o Microscopy POC 40923 I have reviewed the previous health record information and history for this pt. from Dr. Finley. Follow-up With When Contact Inf (more content not included)... Normal [facility] Comment on above: Result Comment: Elec tronically Signed By: Tushar Nunez MD, Jude Farias\.br\Date and Time Signed: 05/11/20 10:45 EDT\.br\Electronically Co-Signed By: Kisha Stevens MA\.br\Date and Time Co-Signed: 05/11/20 08:53 EDT [facility] Amb[facility] Clinical Summary {[id number] }[id number] Normal [facility] Patient Educationon 01-04-20 20 Patient Education Obstetrics and Gynecology Acute Urinary Retention, Female You have been seen by a caregiver today because of your inability to urinate (pass your water). This is an uncommon problem in females. CAUSES It can be caused by: ? Infection. ? A side effect of a medication. ? A problem in a nearby organ that presses or squeezes on the bladder or the urethra (the tube that drains the bladder). ? Psychological problems. TREATMENT Treatment may involve a one-time placement of a tube in the bladder to empty it. It may be a problem that does not recur for years. You and your caregiver can decide how to handle this problem in follow-up. You may need to be referred to a specialist for additional examination and tests. HOME CARE INSTRUCTIONS If you are to leave the lowe catheter (a long, narrow, hollow tube) in and go home with a drainage system, you will need to discuss the best course of action with your caregiver. While the catheter is in, maintain a good intake of fluids. Keep the drainage bag emptied and lower than your catheter. This is so contaminated (infected) urine will not flow back into your bladder. This could lead to a urinary tract infection. Only take cyxe-hqx-rosktxm or prescription medicines for pain, discomfort, or fever as directed by your caregiver. SEEK IMMEDIATE MEDICAL CARE IF: You develop chills, fever, or show signs of generalized illness that occurs prior to seeing your caregiver. Document Released: 02/09/2007 Document Revised: 05/04/2012 Document Reviewed: 01/12/2010 ExitCare? Patient Information ?2013 [employer] [facility] Urology Office/Clinic Noteon 01-04-2020 Urology Office/Clinic Note Chief Complaint f/u to cysto UD This patient is a 74-year-old female with a history of gross hematuria and urinary tract infection. She had a recent cystoscopic examination that showed no evidence of malignancy. She was treated by her primary care physician for another urinary tract infection. [facility] Staff Pt is here for f/u to cysto UD done 12/02/2019. Previous dx of retention, flank pain and gross hematuria. Pt is currently being treated for UTI by Dr. Bunch. She states that she has blood in her urine at the time she went to him for treatment. Today's UA shows negative blood. Dysuria: pt states she is having burning and is sore Incomplete bladder emptying: no Hematuria: pt states she last saw blood about 10 days ago Frequency: pt states average is about every 2-3 hours for her Urgency: yes Nocturia: 1x Stream: pt states it varies based on what she drinks or how long she has waited Leaking: no Post void dripping: no Wearing pads/ Depends: no Urge incontinence: no Stress incontinence: no Incontinence without Sensory Awareness: no Abdominal pain: once in a while Flank pain: no Sexual complaints: no History of Present Illness Reviewed UA and last encounter. There have been no associated fever, chills, flank pain or blood in the urine. Pt. states mild burning w/ urination. Review of Systems PHQ Score Initial Depression Screen Score: 2 ROS - Provider Constitutional: denies weight loss, denies hot flashes. Eyes: denies eye problems. Gastrointestinal: denies nausea, denies vomiting. Cardiovascular: denies chest pain or angina. Integumentary: no dryness Musculoskeletal: denies musculoskeletal symptoms. ENMT: denies otolaryngeal symptoms. Respiratory: no shortness of breath. Heme/Lymph: denies easy bleeding tendency, denies easy bruising tendency. Psychiatric: no confusion, no anxiety. Genitourinary: denies vaginal discharge, denies incontinence, denies dysuria, denies hematuria, denies urinary frequency, denies amenorrhea, denies menorrhagia, denies abnormal bleeding, denies pelvic pain, denies genital sores, and denies decreased libido. Physical Exam Vitals & Measurements HR: 74(Peripheral) RR: 16 BP: 144/89 HT: 163.0 cm HT: 163 cm WT: 64.5 kg WT: 64.5 kg BMI: 24.28 General Appearance: alert , no acute distress, well nourished, well developed female. Genitourinary: bladder nonpalpable, no flank pain. Assessment/Plan This patient has a history of urinary tract infection and hemorrhagic cystitis. She has been treated recently with an oral antibiotic and has had clearing of her urine. She had a recent cystoscopic examination that showed no evidence of malignancy. We did discuss the possibility of using suppressive antibiotic therapy and will make that decision on her next visit. If her next urinalysis shows that she has continued infections or hematuria or other issues we will consider suppressive dose of antibiotics for possibly 1 or 2 months. 1. Hematuria (R31.9: Hematuria, unspecified) Pt. states that she saw blood about ten days ago that may be due to cysto/ud. UA today is neg. for blood. Pt. is currently being treated for a UTI by Dr. Bunch. Pt. is doing well. All questions/concerns were discussed. Pt. to call the office if sheencounters any issues prior. Pt. acknowledges understanding. F/u in 1mos. w/ PVR. 2. Retention of urine (R33.9: Retention of urine, unspecified) S/p Cysto/UD 12/02/2019. PVR today - 29ml. Ordered: Urnls Dip Stick Auto w/o Microscopy POC 72539 3. Dysuria (R30.0: Dysuria) Mild burning w/ urination. I have reviewed the previous health record information and history for this pt. from Dr. Finley. Follow-up With When Contact Information Jude Finley Jr., MD [address] [place] [phone]- Additional Instructions: 1mos. w/ pVR Patient Education Urinary Retention, Acute, Female IKisha , personally scribed for Dr. Finley on 01/04/2020 12:01:09. . Documentation recorded by the scribe, Kisha Stevens, accurately reflects the services(s) I performed and decisions made by me. Authenticated by Dr. Finley on 01/04/2020 12:25:56. Problem List/Past Medical History Ongoing Arthritis Asthma Bladder infection Bladder outlet obstruction COPD mixed type Dysuria Flank pain Gross hematuria Hematuria High cholesterol History of UTI Hypertension Retention of urine Historical No qualifying data Procedure/Surgical History Cystoscopy (12/02/2019), Breast surgery, Colonoscopy, H/O: hysterectomy. Medications amLODIPine 10 mg Tab, Not taking Aspirin Low Dose 81 mg oral tablet, chewable cephalexin 500 mg Cap ClearLax oral powder for reconstitution, Not taking diclofenac sodium 75 mg Oral EC Tab, Not taking DOK 100 mg oral capsule, 100 mg= 1 cap(s), Oral, BID, PRN ezetimibe 10 mg Tab fluconazole 100 mg Tab, Not taking furosemide 20 mg T (more content not included)... Normal [facility] Comment on above: Result Comment: Elec tronically Signed By: Tushar Nunez MD, Jude Farias\.br\Date and Time Signed: 01/04/20 12:26 EST\.br\Electronically Co-Signed By: Kihsa Stevens MA\.br\Date and Time Co-Signed: 01/04/20 12:01 EST Operative Reporton 0 Operative Report [id number] :127 Normal [facility] Cult,Bloodon 10-18-2019 Cult,Blood Specimen Description .BLOOD Special Requests 3ML LT A.C. Culture NO GROWTH 6 DAYS Report Status FINAL 10/18/2019 Normal [facility] Comment on above: Performed By: #### C DP, CP, LIP, TROPI, LIPRF, GLYHGB #### [facility] [employer] [address] [place] [id number] [employer] Staff: Brandon Anaya MD Cult,Blood Specimen Description .BLOOD Special Requests back lt arm 3ml Culture NO GROWTH 6 DAYS Report Status FINAL 10/18/2019 [facility] Comment on above: Performed By: #### C DP, CP, LIP, TROPI, LIPRF, GLYHGB #### [facility] [employer] [address] [place] [address] [id number] [employer] Staff: Brandon Anaya MD Cult,Urineon 10-18-2019 Cult,Urine Specimen Description .CLEAN CATCH URINE Special Requests NOT REPORTED Culture STAPHYLOCOCCUS SPECIES, COAGULASE NEGATIVE >[id number] CFU/ML Report Status FINAL 10/17/2019 SUSCEPTIBILITY Organism STAPHYLOCOCCUS SPECIES COAGULASE NEGATIVE Method BRAYDEN Penicillin >=0.5 RESISTANT Cefoxitin Screen NOT REPORTED Ciprofloxacin NOT REPORTED Clindamycin NOT REPORTED Erythromycin NOT REPORTED Gentamicin <=0.5 SUSCEPTIBLE Gentamicin is used only in combination with other active agents that test susceptible. Induced Clind Resist NOT REPORTED Levofloxacin <=0.12 SUSCEPTIBLE Linezolid NOT REPORTED Moxifloxacin NOT REPORTED Nitrofurantoin <=16 SUSCEPTIBLE Oxacillin >=4 RESISTANT Synercid NOT REPORTED Rifampin NOT REPORTED Tetracycline 2 SUSCEPTIBLE Tigecycline NOT REPORTED Trimethoprim/Sulfa 20 SUSCEPTIBLE Vancomycin 1 SUSCEPTIBLE [facility] Comment on above: Performed By: #### C DP, CP, LIP, TROPI, LIPRF, GLYHGB #### [facility] [employer] [address] [place] [id number] [employer]: Brandon Anaya MD Basic Metab w/rfx MGon 10-15 (cont.) [facility] Comment on above: Result Comment: Aver age GFR for 70 or more years old: 75 mL/min/1.73sq m Chronic Kidney Disease: <60 mL/min/1.73sq m Kidney failure: <15 mL/min/1.73sq m eGFR calculated using average adult body mass. Additional eGFR calculator available at: http://www.[employer].com/multiple_crcl_2012.htm Performed By: #### C DP, CP, LIP, TROPI, LIPRF, GLYHGB #### [facility] [employer] [address] [place] [id number] [employer]: Brandon Anaya MD Anion gap [Moles/Vol] 13 mmol/L Normal 9-17 [facility] Comment on above: Performed By: #### C DP, CP, LIP, TROPI, LIPRF, GLYHGB #### [facility] [employer] [address] [place] [address] [employer]: Brandon Anaya MD Calcium [Mass/Vol] 8.6 mg/dL Normal 8.6-10.4 [facility] Comment on above: Performed By: #### C DP, CP, LIP, TROPI, LIPRF, GLYHGB #### [facility] [employer] [address] [place] [address] [employer]: Brandon Anaya MD Chloride [Moles/Vol] 97 mmol/L Low 98-107 [facility] Comment on above: Performed By: #### C DP, CP, LIP, TROPI, LIPRF, GLYHGB #### [facility] [employer] [address] [place] [id number] [employer]: Brandon Anaya MD CO2 [Moles/Vol] 25 mmol/L Normal 20-31 [facility] Comment on above: Performed By: #### C DP, CP, LIP, TROPI, LIPRF, GLYHGB #### [facility] [employer] [address] [place] [address] [employer]: Brandon Anaya MD Creatinine [Mass/Vol] 0.42 mg/dL Low 0.50-0.90 [facility] Comment on above: Performed By: #### C DP, CP, LIP, TROPI, LIPRF, GLYHGB #### [facility] [employer] [address] [place] [address] [employer]: Brandon Anaya MD GFR, Amer >60 Normal >60 [facility] Comment on above: Performed By: #### C DP, CP, LIP, TROPI, LIPRF, GLYHGB #### [facility] [employer] [address] [place] [address] [employer]: Brandon Anaya MD GFR,non Amer >60 Normal >60 [facility] Comment on above: Performed By: #### C DP, CP, LIP, TROPI, LIPRF, GLYHGB #### [facility] [employer] [address] [place] [id number] [employer]: Brandon Anaya MD Glucose [Mass/Vol] 87 mg/dL Normal 70-99 [facility] Comment on above: Performed By: #### C DP, CP, LIP, TROPI, LIPRF, GLYHGB #### [address] [address] [employer]: Brandon Anaya MD Potassium [Moles/Vol] 3.7 mmol/L Normal 3.7-5.3 [facility] Comment on above: Performed By: #### C DP, CP, LIP, TROPI, LIPRF, GLYHGB #### [facility] [employer] [address] [place] [address] [employer]: Brandon Anaya MD Sodium [Moles/Vol] 135 mmol/L Normal 135-144 [facility] Comment on above: Performed By: #### C DP, CP, LIP, TROPI, LIPRF, GLYHGB #### [facility] [employer] [address] [place] [address] [employer]: Brandon Anaya MD Urea nitrogen [Mass/Vol] 14 mg/dL Normal 8-23 [facility] Comment on above: Performed By: #### C DP, CP, LIP, TROPI, LIPRF, GLYHGB #### [facility] [employer] [address] [place] [address] [employer]: Brandon Anaya MD BUN/CRE Ratio NOT REPORTED Normal 9-20 [facility] Comment on above: Performed By: #### C DP, CP, LIP, TROPI, LIPRF, GLYHGB #### [facility] [employer] [address] [place] [address] [employer]: Brandon Anaya MD Staging: NOT REPORTED Normal [facility] Comment on above: Performed By: #### C DP, CP, LIP, TROPI, LIPRF, GLYHGB #### [facility] [employer] [address] [place] [address] [employer]: Brandon Anaya MD Basic Metabolic Panel w/ Ref kervin to MGon 10-16-2019 Anion gap [Moles/Vol] 13 mmol/L 9 - 17 mmol/L [place], [place] Bun/Cre Ratio NOT REPORTED [place], [place] Calcium [Mass/Vol] 8.6 mg/dL 8.6 - 10. 4 mg/dL [place], [place] Chloride [Moles/Vol] 97 mmol/L Low 98 - 10 7 mmol/L [place] CO2 [Moles/Vol] 25 mmol/L 20 - 31 mmol/L [place] Creatinine [Mass/Vol] 0.42 mg/dL Low 0.5 - 0.9 mg/dL [place] GFR >60 >60 mL/min [place] GFR Non- >60 >60 mL/min [place] GFR/1.73 sq M predicted among non-blacks MDRD (S/P/Bld) [Vol rate/Area] [place] Comment on above: Average GFR for 70 o r more years old: 75 mL/min/1.73sq m Chronic Kidney Disease: <60 mL/min/1.73sq m Kidney failure: <15 mL/min/1.73sq m eGFR calculated using average adult body mass. Additional eGFR calculator available at: http://www.[employer]ies/multiple_crcl_2012.htm GFR/1.73 sq M predicted among non-blacks MDRD (S/P/Bld) [Vol rate/Area] NOT REPORTED [place] Glucose [Mass/Vol] 87 mg/dL 70 - 99 mg/dL [place] Interpretation and review of laboratory results Abnormal [place] Potassium [Moles/Vol] 3.7 mmol/L 3.7 - 5.3 mmol/L [place] Sodium [Moles/Vol] 135 mmol/L 135 - 144 mmol/L [place] Urea nitrogen [Mass/Vol] 14 mg/dL 8 - 23 mg/dL [place] CBC auto differentialon 09-25 Basophils (Bld) [#/Vol] 0.04 10*3/uL [place] Basophils/100 WBC (Bld) 0 % 0 - 2 % [place] Differential Type NOT REPORTED [place] Eosinophils (Bld) [#/Vol] 0.10 10*3/uL [place] Eosinophils/100 WBC (Bld) 1 % 1 - 4 % [place] Erythrocyte distribution width (RBC) [Ratio] 14.6 % High 11.8 - 14.4 % [place] Hematocrit (Bld) [Volume fraction] 40.2 % 36.3 - 47.1 % [place] Hemoglobin (Bld) [Mass/Vol] 12.6 g/dL 11.9 - 15.1 g/dL [place] Immature granulocytes (Bld) [#/Vol] 0.08 10*3/uL [place] Immature granulocytes (Bld) [#/Vol] 1 % High 0 [place] Interpretation and review of laboratory results Abnormal [place] Lymphocytes (Bld) [#/Vol] 3.05 10*3/uL [place] Lymphocytes/100 WBC (Bld) 32 % 24 - 43 % [place] MCH (RBC) [Entitic mass] 29.0 pg 25.2 - 33.5 pg [place] MCHC (RBC) [Mass/Vol] 31.3 g/dL 28.4 - 34.8 g/dL [place] MCV (RBC) [Entitic vol] 92.4 fL 82.6 - 102.9 fL [place] Monocytes (Bld) [#/Vol] 0.76 10*3/uL [place] Monocytes/100 WBC (Bld) 8 % 3 - 12 % [place] Platelet mean volume (Bld) [Entitic vol] 10.6 fL 8.1 - 13.5 fL [place] Platelets (Bld) [#/Vol] 216 10*3/uL [place] Platelets (Bld) [#/Vol] NOT REPORTED [place] RBC (Bld) [#/Vol] 4.35 10*6/uL 3.95 - 5.1 1 m/uL [place] RBC morphology finding Nom (Bld) ANISOCYTOSIS PRESENT [place] Segmented neutrophils/100 WBC (Bld) 58 % 36 - 65 % [place] Segs Absolute 5.61 [place] WBC (Bld) [#/Vol] 9.6 10*3/uL [place] WBC (Bld) [#/Vol] 0.0 10*3/uL 0.0 per 10 0 WBC [place] WBC Morphology NOT REPORTED [place] CBC with Diffon 10-16-2019 Abs. Basophil 0.04 k/uL Normal 0.00-0.20 [facility] Comment on above: Performed By: #### C DP, CP, LIP, TROPI, LIPRF, GLYHGB #### [facility] [employer] [address] [place], [place] [id number] [employer]: Brandon Anaya MD Abs.Imm.Granulocyte 0.08 k/uL Normal 0.00-0.30 [facility] Comment on above: Performed By: #### C DP, CP, LIP, TROPI, LIPRF, GLYHGB #### [facility] [employer] [address] [place], [place] [phone] [employer]: Brandon Anaya MD Abs.Neutrophil (Seg) 5.61 k/uL Normal 1.50-8.10 [facility] Comment on above: Performed By: #### C DP, CP, LIP, TROPI, LIPRF, GLYHGB #### [address] [address] [employer]: Brandon Anaya MD Basophils/100 WBC (Bld) 0 % Normal 0-2 [facility] Comment on above: Performed By: #### C DP, CP, LIP, TROPI, LIPRF, GLYHGB #### [address] [address] [employer]: Brandon Anaya MD Eosinophils (Bld) [#/Vol] 0.10 10*3/uL Normal 0.00-0.44 [facility] Comment on above: Performed By: #### C DP, CP, LIP, TROPI, LIPRF, GLYHGB #### [address] [address] [employer]: Brandon Anaya MD Eosinophils/100 WBC (Bld) 1 % Normal 1-4 [facility] Comment on above: Performed By: #### C DP, CP, LIP, TROPI, LIPRF, GLYHGB #### [place] [address] [employer]: Brandon Anaya MD Erythrocyte distribution width (RBC) [Ratio] 14.6 % High 11.8-14.4 [facility] Comment on above: Performed By: #### C DP, CP, LIP, TROPI, LIPRF, GLYHGB #### [place] [address] [employer]: Brandon Anaya MD Hematocrit (Bld) [Volume fraction] 40.2 % Normal 36.3-47.1 [facility] Comment on above: Performed By: #### C DP, CP, LIP, TROPI, LIPRF, GLYHGB #### [address] [address] [employer]: Brandon Anaya MD Hemoglobin (Bld) [Mass/Vol] 12.6 g/dL Normal 11.9-15.1 [facility] Comment on above: Performed By: #### C DP, CP, LIP, TROPI, LIPRF, GLYHGB #### [address] [address] [employer]: Brandon Anaya MD Immature granulocytes (Bld) [#/Vol] 1 % High 0 [facility] Comment on above: Performed By: #### C DP, CP, LIP, TROPI, LIPRF, GLYHGB #### [address] [address] [employer]: Brandon Anaya MD Lymphocytes (Bld) [#/Vol] 3.05 10*3/uL Normal 1.10-3.70 [facility] Comment on above: Performed By: #### C DP, CP, LIP, TROPI, LIPRF, GLYHGB #### [place] [address] [employer]: Brandon Anaya MD Lymphocytes/100 WBC (Bld) 32 % Normal 24-43 [facility] Comment on above: Performed By: #### C DP, CP, LIP, TROPI, LIPRF, GLYHGB #### [address] [address] [employer]: Brandon Anaya MD MCH (RBC) [Entitic mass] 29.0 pg Normal 25.2-33.5 [facility] Comment on above: Performed By: #### C DP, CP, LIP, TROPI, LIPRF, GLYHGB #### [address] [address] [employer]: Brandon Anaya MD MCHC (RBC) [Mass/Vol] 31.3 g/dL Normal 28.4-34.8 [facility] Comment on above: Performed By: #### C DP, CP, LIP, TROPI, LIPRF, GLYHGB #### [address] [address] [employer]: Brandon Anaya MD MCV (RBC) [Entitic vol] 92.4 fL Normal 82.6-102.9 [facility] Comment on above: Performed By: #### C DP, CP, LIP, TROPI, LIPRF, GLYHGB #### [address] [address] [employer]: Brandon Anaya MD Monocytes (Bld) [#/Vol] 0.76 10*3/uL Normal 0.10-1.20 [facility] Comment on above: Performed By: #### C DP, CP, LIP, TROPI, LIPRF, GLYHGB #### [address] [address] [employer]: Brandon Anaya MD Monocytes/100 WBC (Bld) 8 % Normal 3-12 [facility] Comment on above: Performed By: #### C DP, CP, LIP, TROPI, LIPRF, GLYHGB #### [address] [address] [employer]: Brandon Anaya MD Neutrophil (Seg) 58 % Normal 36-65 [facility] Comment on above: Performed By: #### C DP, CP, LIP, TROPI, LIPRF, GLYHGB #### [address] [address] [employer]: Brandon Anaya MD NRBC Automated 0.0 per 100 WBC Normal 0.0 [facility] Comment on above: Performed By: #### C DP, CP, LIP, TROPI, LIPRF, GLYHGB #### [address] [address] [employer]: Brandon Anaya MD Platelet mean volume (Bld) [Entitic vol] 10.6 fL Normal 8.1-13.5 [facility] Comment on above: Performed By: #### C DP, CP, LIP, TROPI, LIPRF, GLYHGB #### [address] [address] [employer]: Brandon Anaya MD Platelets (Bld) [#/Vol] 216 10*3/uL Normal 138-453 [facility] Comment on above: Performed By: #### C DP, CP, LIP, TROPI, LIPRF, GLYHGB #### [address] [address] [employer]: Brandon Anaya MD RBC (Bld) [#/Vol] 4.35 10*6/uL Normal 3.95-5.11 [facility] Comment on above: Performed By: #### C DP, CP, LIP, TROPI, LIPRF, GLYHGB #### [address] [address] [employer]: Brandon Anaya MD RBC morphology finding Nom (Bld) ANISOCYTOSIS PRESENT Normal [facility] Comment on above: Performed By: #### C DP, CP, LIP, TROPI, LIPRF, GLYHGB #### [address] [address] [employer]: Brandon Anaya MD WBC (Bld) [#/Vol] 9.6 10*3/uL Normal 3.5-11.3 [facility] Comment on above: Performed By: #### C DP, CP, LIP, TROPI, LIPRF, GLYHGB #### [address] [address] [employer]: Brandon Anaya MD Auto Diff Performed NOT REPORTED Normal [facility] Comment on above: Performed By: #### C DP, CP, LIP, TROPI, LIPRF, GLYHGB #### [address] [address] [employer]: Brandon Anaya MD Platelets (Bld) [#/Vol] NOT REPORTED Normal [facility] Comment on above: Performed By: #### C DP, CP, LIP, TROPI, LIPRF, GLYHGB #### [facility] [address] [place] [address] [employer]: Brandon Anaya MD WBC Morphology NOT REPORTED Normal [facility] Comment on above: Performed By: #### C DP, CP, LIP, TROPI, LIPRF, GLYHGB #### [facility] [address] [place] [address] [employer]: Brandon Anaya MD MRI LUMBAR SPINE W WO CONTRA STon 10-16-2019 MRI LUMBAR SPINE W WO CONTRAST EXAMINATION: MRI OF THE LUMBAR SPINE WITHOUT AND WITH CONTRAST 10/15/2019 2:17 pm TECHNIQUE: Multiplanar multisequence MRI of the lumbar spine was performed without and with the administration of intravenous contrast. COMPARISON: 10/10/2019 HISTORY: ORDERING SYSTEM PROVIDED HISTORY: fracture, r/o spinal abscess, TECHNOLOGIST PROVIDED HISTORY: fracture, r/o spinal abscess, Initial evaluation. FINDINGS: BONES/ALIGNMENT: There is normal alignment of the spine. The vertebral body heights are maintained. The bone marrow signal appears unremarkable. The height of the vertebral bodies appear to be maintained. There is no abnormal edema in the vertebral bodies. No abnormal enhancement is identified in the vertebral bodies. SPINAL CORD: The conus terminates normally. SOFT TISSUES: No abnormal enhancement is seen of the lumbar spine. No paraspinal mass identified. 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 L1-L2: The thecal sac and neural foramina are intact. L2-L3: The thecal sac and neural foramina are intact. L3-L4: There is a minimum disc bulge. Disc and/or osteophytes cause minimal narrowing of the neural foramina bilaterally. The thecal sac is not stenotic. L4-L5: There is a minimum disc bulge. Disc and/or osteophytes result in mild narrowing of the neural foramina bilaterally. The thecal sac is not stenotic. L5-S1: There is mild facet and ligamentum flavum hypertrophy. The thecal sac is not stenotic. The S1 nerve roots are intact. The neural foramina are intact. IMPRESSION: No compression fracture of the lumbar spine is identified. No evidence of infection by MRI. Disc and osteophytes cause minimal narrowing of the neural foramina at L3-4 and L4-5. No stenosis of the thecal sac in the lumbar region. There is a 4 cm abdominal aneurysm at the level of L3-4 with follow-up suggested below. RECOMMENDATIONS: For management of fusiform AAA: 4.0-4.4 cm AAA, recommend follow-up every 12 months and recommend vascular consultation. * For management of saccular abdominal aortic aneurysms of any size, recommend vascular consultation. Note: For AAA enlargement of >0.5 cm in 6 months or >1 cm in 1 year, recommend vascular consultation. References: J Am Larissa Radiol 2013; 10(10):789-794; J Vasc Surg. 2018; 67:2-77 Interpreted by: Tiffany Lindsay MD Signed by: Tiffany Lindsay MD 10/15/19 Final result Normal [facility] POC Glucose Fingerstickon Glucose [Mass/Vol] 98 mg/dL 65 - 105 mg/dL [place] Glucose [Mass/Vol] 107 mg/dL High 65 - 105 mg/dL [place] Interpretation and review of laboratory results Abnormal [place] Glucose [Mass/Vol] 81 mg/dL 65 - 105 mg/dL [place] URINALYSIS WITH MICROSCOPICo n 10-16-2019 Amorphous, UA NOT REPORTED None [place] Bacteria, UA MODERATE Abnormal None [place] Bilirubin Urine Negative NEGATIVE [place] Casts UA 0 TO 2 HYALINE Refer ence range defined for non-centrifuged specimen. [place] Color, UA YELLOW YELLOW [place] Crystals, UA NOT REPORTED None /HPF [place] Epithelial Cells UA 0 TO 2 [place] Glucose, Ur Negative NEGATIVE [place] Interpretation and review of laboratory results Abnormal [place] Ketones Ql (U) SMALL Abnormal NEGATIVE [place] Leukocyte esterase Test strip Ql (U) Negative NEGATIVE [place] Mucus, UA NOT REPORTED None [place] Nitrite, Urine Negative NEGATIVE [place] Other Observations UA NOT REPORTED NOT REQ. M [place] pH, UA 8.0 [place] Protein (U) [Mass/Vol] Negative NEGATIVE [place] RBC (U) [#/Vol] 2 TO 5 [place] Comment on above: Reference range defi nya for non-centrifuged specimen. Renal Epithelial, UA NOT REPORTED 0 /HPF Me [place] Specific [place], UA 1.006 [place] Trichomonas, UA NOT REPORTED None [place] Turbidity UA CLOUDY Abnormal CLEAR [place] Urine Hgb Negative NEGATIVE [place] Urobilinogen, Urine Normal Normal [place] WBC, UA 0 TO 2 [place] Yeast, UA NOT REPORTED None [place] - [place] Urinalysis w/ Microon 2019 ----- Normal [facility] Comment on above: Performed By: #### C DP, CP, LIP, TROPI, LIPRF, GLYHGB #### [facility] [employer] [address] [place] [address] [employer]: Brandon Anaya MD Acetoacetic Acid,Ur SMALL Abnormal NEG [facility] Comment on above: Performed By: #### C DP, CP, LIP, TROPI, LIPRF, GLYHGB #### [facility] [employer] [address] [place] [address] [employer]: Brandon Anaya MD Bacteria LM.HPF (Urine sed) [#/Area] MODERATE Abnormal NONE [facility] Comment on above: Performed By: #### C DP, CP, LIP, TROPI, LIPRF, GLYHGB #### [facility] [employer] [address] [place] [address] [employer]: Brandon Anaya MD Bilirubin, SemiQt,Ur Negative Normal NEG [facility] Comment on above: Performed By: #### C DP, CP, LIP, TROPI, LIPRF, GLYHGB #### [address] [address] [employer]: Brandon Anaya MD Casts LM.LPF (Urine sed) [#/Area] 0 TO 2 HYALINE Normal 0-8 [facility] Comment on above: Result Comment: Refe rence range defined for non-centrifuged specimen. Performed By: #### C DP, CP, LIP, TROPI, LIPRF, GLYHGB #### [address] [address] [employer]: Brandon Anaya MD Color (U) YELLOW Normal YEL [facility] Comment on above: Performed By: #### C DP, CP, LIP, TROPI, LIPRF, GLYHGB #### [address] [address] [employer]: Brandon Anaya MD Epithelial cells LM.HPF (Urine sed) [#/Area] 0 TO 2 Normal 0-5 [facility] Comment on above: Performed By: #### C DP, CP, LIP, TROPI, LIPRF, GLYHGB #### [address] [address] [employer]: Brandon Anaya MD Glucose Ql (U) Negative Normal NEG [facility] Comment on above: Performed By: #### C DP, CP, LIP, TROPI, LIPRF, GLYHGB #### [address] [address] [employer]: Brandon Anaya MD Hemoglobin, Ur Negative Normal NEG [facility] Comment on above: Performed By: #### C DP, CP, LIP, TROPI, LIPRF, GLYHGB #### [address] [address] [employer]: Brandon Anaya MD Leukocyte esterase Test strip Ql (U) Negative Normal NEG [facility] Comment on above: Performed By: #### C DP, CP, LIP, TROPI, LIPRF, GLYHGB #### [address] [address] [employer]: Brandon Anaya MD Nitrite,Ur Negative Normal NEG [facility] Comment on above: Performed By: #### C DP, CP, LIP, TROPI, LIPRF, GLYHGB #### [place] [address] [employer]: Brandon Aanya MD pH (U) 8.0 [pH] Normal 5.0-8.0 [facility] Comment on above: Performed By: #### C DP, CP, LIP, TROPI, LIPRF, GLYHGB #### [place] [address] [employer]: Brandon Anaya MD Protein Ql (U) Negative Normal NEG [facility] Comment on above: Performed By: #### C DP, CP, LIP, TROPI, LIPRF, GLYHGB #### [facility] [employer] [address] [place] [address] [employer]: Brandon Anaya MD RBC (U) [#/Vol] 2 TO 5 Normal 0-4 [facility] Comment on above: Result Comment: Refe rence range defined for non-centrifuged specimen. Performed By: #### C DP, CP, LIP, TROPI, LIPRF, GLYHGB #### [facility] [employer] [address] [place] [address] [employer]: Brandon Anaya MD Specific gravity (U) [Rel density] 1.006 Normal 1.005-1.030 [facility] Comment on above: Performed By: #### C DP, CP, LIP, TROPI, LIPRF, GLYHGB #### [address] [address] [employer]: Brandon Anaya MD Turbidity CLOUDY Abnormal CLEAR [facility] Comment on above: Performed By: #### C DP, CP, LIP, TROPI, LIPRF, GLYHGB #### [facility] [address] [place] [address] [employer]: Brandon Anaya MD Urobilinogen,Ur Normal Normal NORM [facility] Comment on above: Performed By: #### C DP, CP, LIP, TROPI, LIPRF, GLYHGB #### [address] [address] [employer]: Brandon Anaya MD WBC (U) [#/Vol] 0 TO 2 Normal 0-5 [facility] Comment on above: Performed By: #### C DP, CP, LIP, TROPI, LIPRF, GLYHGB #### [address] [address] [employer]: Brandon Anaya MD Amorphous sediment LM Ql (Urine sed) NOT REPORTED Normal NONE [facility] Comment on above: Performed By: #### C DP, CP, LIP, TROPI, LIPRF, GLYHGB #### [address] [address] [employer]: Brandon Anaya MD Crystals LM Nom (Urine sed) NOT REPORTED Normal NONE [facility] Comment on above: Performed By: #### C DP, CP, LIP, TROPI, LIPRF, GLYHGB #### [address] [address] [employer]: Brandon Anaya MD Epithelial, Renal NOT REPORTED Normal 0 [facility] Comment on above: Performed By: #### C DP, CP, LIP, TROPI, LIPRF, GLYHGB #### [address] [address] [employer]: Brandon Anaya MD Mucus Strands NOT REPORTED Normal [facility] Comment on above: Performed By: #### C DP, CP, LIP, TROPI, LIPRF, GLYHGB #### [address] [address] [employer]: Brandon Anaya MD Other Observations NOT REPORTED Normal NREQ [facility] Comment on above: Performed By: #### C DP, CP, LIP, TROPI, LIPRF, GLYHGB #### [address] [address] [employer]: Brandon Anaya MD Trichomonas NOT REPORTED Normal [facility] Comment on above: Performed By: #### C DP, CP, LIP, TROPI, LIPRF, GLYHGB #### [address] [address] [employer]: Brandon Anaya MD Yeast LM Ql (Urine sed) NOT REPORTED Normal [facility] Comment on above: Performed By: #### C DP, CP, LIP, TROPI, LIPRF, GLYHGB #### [address] [address] [employer]: Brandon Anaya MD Basic Metab w/rfx MGon 10-14 (cont.) Normal [facility] Comment on above: Result Comment: Aver age GFR for 70 or more years old: 75 mL/min/1.73sq m Chronic Kidney Disease: <60 mL/min/1.73sq m Kidney failure: <15 mL/min/1.73sq m eGFR calculated using average adult body mass. Additional eGFR calculator available at: http://www.[employer]ies/multiple_crcl_2012.htm Performed By: #### C DP, CP, LIP, TROPI, LIPRF, GLYHGB #### [facility] [employer] [address] [place] [address] [employer]: Brandon Anaya MD Anion gap [Moles/Vol] 14 mmol/L Normal 9-17 [facility] Comment on above: Performed By: #### C DP, CP, LIP, TROPI, LIPRF, GLYHGB #### [facility] [employer] [address] [place] [address] [employer]: Brandon Anaya MD Calcium [Mass/Vol] 8.8 mg/dL Normal 8.6-10.4 [facility] Comment on above: Performed By: #### C DP, CP, LIP, TROPI, LIPRF, GLYHGB #### [facility] [employer] [address] [place] [address] [employer]: Brandon Anaya MD Chloride [Moles/Vol] 94 mmol/L Low 98-107 [facility] Comment on above: Performed By: #### C DP, CP, LIP, TROPI, LIPRF, GLYHGB #### [facility] [employer] [address] [place] [address] [employer]: Brandon Anyaa MD CO2 [Moles/Vol] 23 mmol/L Normal 20-31 [facility] Comment on above: Performed By: #### C DP, CP, LIP, TROPI, LIPRF, GLYHGB #### [facility] [employer] [address] [place] [address] [employer]: Brandon Anaya MD Creatinine [Mass/Vol] 0.36 mg/dL Low 0.50-0.90 [facility] Comment on above: Performed By: #### C DP, CP, LIP, TROPI, LIPRF, GLYHGB #### [facility] [employer] [address] [place] [address] [employer]: Brandon Anaya MD GFR, Amer >60 Normal >60 [facility] Comment on above: Performed By: #### C DP, CP, LIP, TROPI, LIPRF, GLYHGB #### [address] [address] [employer]: Brandon Anaya MD GFR,non Amer >60 Normal >60 [facility] Comment on above: Performed By: #### C DP, CP, LIP, TROPI, LIPRF, GLYHGB #### [address] [address] [employer]: Brandon Anaya MD Glucose [Mass/Vol] 89 mg/dL Normal 70-99 [facility] Comment on above: Performed By: #### C DP, CP, LIP, TROPI, LIPRF, GLYHGB #### [address] [address] [employer]: Brandon Anaya MD Potassium [Moles/Vol] 3.7 mmol/L Normal 3.7-5.3 [facility] Comment on above: Performed By: #### C DP, CP, LIP, TROPI, LIPRF, GLYHGB #### [address] [address] [employer]: Brandon Anaya MD Sodium [Moles/Vol] 131 mmol/L Low 135-144 [facility] Comment on above: Performed By: #### C DP, CP, LIP, TROPI, LIPRF, GLYHGB #### [address] [address] [employer]: Brandon Anaya MD Urea nitrogen [Mass/Vol] 16 mg/dL Normal 8-23 [facility] Comment on above: Performed By: #### C DP, CP, LIP, TROPI, LIPRF, GLYHGB #### [address] [address] [employer]: Brandon Anaya MD BUN/CRE Ratio NOT REPORTED Normal 9-20 [facility] Comment on above: Performed By: #### C DP, CP, LIP, TROPI, LIPRF, GLYHGB #### [facility] [address] [place], [place] [id number] [employer]: Brandon Anaya MD Staging: NOT REPORTED Normal [facility] Comment on above: Performed By: #### C DP, CP, LIP, TROPI, LIPRF, GLYHGB #### [facility] [employer] [address] [place], [place] [id number] [employer]: Brandon Anaya MD Basic Metabolic Panel w/ Ref kervin to [facility] 10-15-2019 Anion gap [Moles/Vol] 14 mmol/L 9 - 17 mmol/L [place] Bun/Cre Ratio NOT REPORTED [place] Calcium [Mass/Vol] 8.8 mg/dL 8.6 - 10. 4 mg/dL [place] Chloride [Moles/Vol] 94 mmol/L Low 98 - 10 7 mmol/L [place] CO2 [Moles/Vol] 23 mmol/L 20 - 31 mmol/L [place] Creatinine [Mass/Vol] 0.36 mg/dL Low 0.5 - 0.9 mg/dL [place] GFR >60 >60 mL/min [place] GFR Non- >60 >60 mL/min [place] GFR/1.73 sq M predicted among non-blacks MDRD (S/P/Bld) [Vol rate/Area] [place] Comment on above: Average GFR for 70 o r more years old: 75 mL/min/1.73sq m Chronic Kidney Disease: <60 mL/min/1.73sq m Kidney failure: <15 mL/min/1.73sq m eGFR calculated using average adult body mass. Additional eGFR calculator available at: http://www.[employer].Advanced Plasma [employer]rapies/multiple_crcl_2012.htm GFR/1.73 sq M predicted among non-blacks MDRD (S/P/Bld) [Vol rate/Area] NOT REPORTED [place] Glucose [Mass/Vol] 89 mg/dL 70 - 99 mg/dL [place] Interpretation and review of laboratory results Abnormal [place] Potassium [Moles/Vol] 3.7 mmol/L 3.7 - 5.3 mmol/L [place] Sodium [Moles/Vol] 131 mmol/L Low 135 - 144 mmol/L [place] Urea nitrogen [Mass/Vol] 16 mg/dL 8 - 23 mg/dL [place] CBC auto differentialon 09-25 Basophils (Bld) [#/Vol] 0.06 10*3/uL [place] Basophils/100 WBC (Bld) 1 % 0 - 2 % [place] Differential Type NOT REPORTED [place] Eosinophils (Bld) [#/Vol] 0.13 10*3/uL [place] Eosinophils/100 WBC (Bld) 1 % 1 - 4 % [place], [place] Erythrocyte distribution width (RBC) [Ratio] 14.6 % High 11.8 - 14.4 % [place] Hematocrit (Bld) [Volume fraction] 41.6 % 36.3 - 47.1 % [place] Hemoglobin (Bld) [Mass/Vol] 13.4 g/dL 11.9 - 15.1 g/dL [place] Immature granulocytes (Bld) [#/Vol] 1 % High 0 [place] Immature granulocytes (Bld) [#/Vol] 0.11 10*3/uL [place] Interpretation and review of laboratory results Abnormal [place] Lymphocytes (Bld) [#/Vol] 2.56 10*3/uL [place] Lymphocytes/100 WBC (Bld) 24 % 24 - 43 % [place] MCH (RBC) [Entitic mass] 29.3 pg 25.2 - 33.5 pg [place] MCHC (RBC) [Mass/Vol] 32.2 g/dL 28.4 - 34.8 g/dL [place] MCV (RBC) [Entitic vol] 90.8 fL 82.6 - 102.9 fL [place] Monocytes (Bld) [#/Vol] 0.78 10*3/uL [place] Monocytes/100 WBC (Bld) 7 % 3 - 12 % [place] Platelet mean volume (Bld) [Entitic vol] 10.6 fL 8.1 - 13.5 fL [place] Platelets (Bld) [#/Vol] NOT REPORTED [place] Platelets (Bld) [#/Vol] 241 10*3/uL [place] RBC (Bld) [#/Vol] 4.58 10*6/uL 3.95 - 5.1 1 m/uL [place] RBC morphology finding Nom (Bld) ANISOCYTOSIS PRESENT [place] Segmented neutrophils/100 WBC (Bld) 66 % High 36 - 65 % [place] Segs Absolute 7.00 [place] WBC (Bld) [#/Vol] 10.6 10*3/uL [place] WBC (Bld) [#/Vol] 0.0 10*3/uL 0.0 per 10 0 WBC [place] WBC Morphology NOT REPORTED [place] CBC with Diffon 10-15-2019 Abs. Basophil 0.06 k/uL Normal 0.00-0.20 [facility] Comment on above: Performed By: #### C DP, CP, LIP, TROPI, LIPRF, GLYHGB #### [email or web address] [address] [place], [place] [id number] [employer]: Brandon Anaya MD Abs.Imm.Granulocyte 0.11 k/uL Normal 0.00-0.30 [facility] Comment on above: Performed By: #### C DP, CP, LIP, TROPI, LIPRF, GLYHGB #### [facility] [employer] [address] [place] [address] [employer]: Brandon Anaya MD Abs.Neutrophil (Seg) 7.00 k/uL Normal 1.50-8.10 [facility] Comment on above: Performed By: #### C DP, CP, LIP, TROPI, LIPRF, GLYHGB #### [facility] [employer] [address] [place] [address] [employer]: Brandon Anaya MD Basophils/100 WBC (Bld) 1 % Normal 0-2 [facility] Comment on above: Performed By: #### C DP, CP, LIP, TROPI, LIPRF, GLYHGB #### [address] [address] [employer]: Brandon Anaya MD Eosinophils (Bld) [#/Vol] 0.13 10*3/uL Normal 0.00-0.44 [facility] Comment on above: Performed By: #### C DP, CP, LIP, TROPI, LIPRF, GLYHGB #### [place] [address] [employer]: Brandon Anaya MD Eosinophils/100 WBC (Bld) 1 % Normal 1-4 [facility] Comment on above: Performed By: #### C DP, CP, LIP, TROPI, LIPRF, GLYHGB #### [place] [address] [employer]: Brandon Anaya MD Erythrocyte distribution width (RBC) [Ratio] 14.6 % High 11.8-14.4 [facility] Comment on above: Performed By: #### C DP, CP, LIP, TROPI, LIPRF, GLYHGB #### [facility] [employer] [address] [place] [address] [employer]: Brandon Anaya MD Hematocrit (Bld) [Volume fraction] 41.6 % Normal 36.3-47.1 [facility] Comment on above: Performed By: #### C DP, CP, LIP, TROPI, LIPRF, GLYHGB #### [facility] [employer] [address] [place] [address] [employer]: Brandon Anaya MD Hemoglobin (Bld) [Mass/Vol] 13.4 g/dL Normal 11.9-15.1 [facility] Comment on above: Performed By: #### C DP, CP, LIP, TROPI, LIPRF, GLYHGB #### [address] [address] [employer]: Brandon Anaya MD Immature granulocytes (Bld) [#/Vol] 1 % High 0 [facility] Comment on above: Performed By: #### C DP, CP, LIP, TROPI, LIPRF, GLYHGB #### [address] [address] [employer]: Brandon Anaya MD Lymphocytes (Bld) [#/Vol] 2.56 10*3/uL Normal 1.10-3.70 [facility] Comment on above: Performed By: #### C DP, CP, LIP, TROPI, LIPRF, GLYHGB #### [address] [address] [employer]: Brandon Anaya MD Lymphocytes/100 WBC (Bld) 24 % Normal 24-43 [facility] Comment on above: Performed By: #### C DP, CP, LIP, TROPI, LIPRF, GLYHGB #### [address] [address] [employer]: Brandon Anaya MD MCH (RBC) [Entitic mass] 29.3 pg Normal 25.2-33.5 [facility] Comment on above: Performed By: #### C DP, CP, LIP, TROPI, LIPRF, GLYHGB #### [address] [address] [employer]: Brandon Anaya MD MCHC (RBC) [Mass/Vol] 32.2 g/dL Normal 28.4-34.8 [facility] Comment on above: Performed By: #### C DP, CP, LIP, TROPI, LIPRF, GLYHGB #### [address] [address] [employer]: Brandon Anaya MD MCV (RBC) [Entitic vol] 90.8 fL Normal 82.6-102.9 [facility] Comment on above: Performed By: #### C DP, CP, LIP, TROPI, LIPRF, GLYHGB #### [address] [address] [employer]: Brandon Anaya MD Monocytes (Bld) [#/Vol] 0.78 10*3/uL Normal 0.10-1.20 [facility] Comment on above: Performed By: #### C DP, CP, LIP, TROPI, LIPRF, GLYHGB #### [place] [address] [employer]: Brandon Anaya MD Monocytes/100 WBC (Bld) 7 % Normal 3-12 [facility] Comment on above: Performed By: #### C DP, CP, LIP, TROPI, LIPRF, GLYHGB #### [address] [address] [employer]: Brandon Anaya MD Neutrophil (Seg) 66 % High 36-65 [facility] Comment on above: Performed By: #### C DP, CP, LIP, TROPI, LIPRF, GLYHGB #### [address] [address] [employer]: Brandon Anaya MD NRBC Automated 0.0 per 100 WBC Normal 0.0 [facility] Comment on above: Performed By: #### C DP, CP, LIP, TROPI, LIPRF, GLYHGB #### [address] [address] [employer]: Brandon Anaya MD Platelet mean volume (Bld) [Entitic vol] 10.6 fL Normal 8.1-13.5 [facility] Comment on above: Performed By: #### C DP, CP, LIP, TROPI, LIPRF, GLYHGB #### [address] [address] [employer]: Brandon Anaya MD Platelets (Bld) [#/Vol] 241 10*3/uL Normal 138-453 [facility] Comment on above: Performed By: #### C DP, CP, LIP, TROPI, LIPRF, GLYHGB #### [address] [address] [employer]: Brandon Anaya MD RBC (Bld) [#/Vol] 4.58 10*6/uL Normal 3.95-5.11 [facility] Comment on above: Performed By: #### C DP, CP, LIP, TROPI, LIPRF, GLYHGB #### [address] [address] [employer]: Brandon Anaya MD RBC morphology finding Nom (Bld) ANISOCYTOSIS PRESENT Normal [facility] Comment on above: Performed By: #### C DP, CP, LIP, TROPI, LIPRF, GLYHGB #### [address] [address] [employer]: Brandon Anaya MD WBC (Bld) [#/Vol] 10.6 10*3/uL Normal 3.5-11.3 [facility] Comment on above: Performed By: #### C DP, CP, LIP, TROPI, LIPRF, GLYHGB #### [address] [address] [employer]: Brandon Anaya MD Auto Diff Performed NOT REPORTED Normal [facility] Comment on above: Performed By: #### C DP, CP, LIP, TROPI, LIPRF, GLYHGB #### [facility] [address] [place] [address] [employer]: Brandon Anaya MD Platelets (Bld) [#/Vol] NOT REPORTED Normal [facility] Comment on above: Performed By: #### C DP, CP, LIP, TROPI, LIPRF, GLYHGB #### [facility] [address] [place] [address] [employer]: Brandon Anaya MD WBC Morphology NOT REPORTED Normal [facility] Comment on above: Performed By: #### C DP, CP, LIP, TROPI, LIPRF, GLYHGB #### [facility] [employer] [address] [place] [address] [employer]: Brandon Anaya MD MRI LUMBAR SPINE W NIGEL BECKFORD STon 10-15-2019 No compression fract ure of the lumbar spine is identified. No evidence of infection by MRI. Disc and osteophytes cause minimal narrowing of the neural foramina at L3-4 and L4-5. No stenosis of the thecal sac in the lumbar region. There is a 4 cm abdominal aneurysm at the level of L3-4 with follow-up suggested below. RECOMMENDATIONS: For management of fusiform AAA: 4.0-4.4 cm AAA, recommend follow-up every 12 months and recommend vascular consultation. * For management of saccular abdominal aortic aneurysms of any size, recommend vascular consultation. Note: For AAA enlargement of >0.5 cm in 6 months or >1 cm in 1 year, recommend vascular consultation. References: J Am Larissa Radiol 2013; 10(10):789-794; J Vasc Surg. 2018; 67:2-77 [place], [place] EXAMINATION: MRI OF THE LUMBAR SPINE WITHOUT AND WITH CONTRAST 10/15/2019 2:17 pm TECHNIQUE: Multiplanar multisequence MRI of the lumbar spine was performed without and with the administration of intravenous contrast. COMPARISON: 10/10/2019 HISTORY: ORDERING SYSTEM PROVIDED HISTORY: fracture, r/o spinal abscess, TECHNOLOGIST PROVIDED HISTORY: fracture, r/o spinal abscess, Initial evaluation. FINDINGS: BONES/ALIGNMENT: There is normal alignment of the spine. The vertebral body heights are maintained. The bone marrow signal appears unremarkable. The height of the vertebral bodies appear to be maintained. There is no abnormal edema in the vertebral bodies. No abnormal enhancement is identified in the vertebral bodies. SPINAL CORD: The conus terminates normally. SOFT TISSUES: No abnormal enhancement is seen of the lumbar spine. No paraspinal mass identified. 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 L1-L2: The thecal sac and neural foramina are intact. L2-L3: The thecal sac and neural foramina are intact. L3-L4: There is a minimum disc bulge. Disc and/or osteophytes cause minimal narrowing of the neural foramina bilaterally. The thecal sac is not stenotic. L4-L5: There is a minimum disc bulge. Disc and/or osteophytes result in mild narrowing of the neural foramina bilaterally. The thecal sac is not stenotic. L5-S1: There is mild facet and ligamentum flavum hypertrophy. The thecal sac is not stenotic. The S1 nerve roots are intact. The neural foramina are intact. [facility] [place], [place] Pri[place], Mhpn Incoming Radiant Results From [facility] - 10/15/2019 11:11 PM EDT EXAMINATION: MRI OF THE LUMBAR SPINE WITHOUT AND WITH CONTRAST 10/15/2019 2:17 pm TECHNIQUE: Multiplanar multisequence MRI of the lumbar spine was performed without and with the administration of intravenous contrast. COMPARISON: 10/10/2019 HISTORY: ORDERING SYSTEM PROVIDED HISTORY: fracture, r/o spinal abscess, TECHNOLOGIST PROVIDED HISTORY: fracture, r/o spinal abscess, Initial evaluation. FINDINGS: BONES/ALIGNMENT: There is normal alignment of the spine. The vertebral body heights are maintained. The bone marrow signal appears unremarkable. The height of the vertebral bodies appear to be maintained. There is no abnormal edema in the vertebral bodies. No abnormal enhancement is identified in the vertebral bodies. SPINAL CORD: The conus terminates normally. SOFT TISSUES: No abnormal enhancement is seen of the lumbar spine. No paraspinal mass identified. 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 L1-L2: The thecal sac and neural foramina are intact. L2-L3: The thecal sac and neural foramina are intact. L3-L4: There is a minimum disc bulge. Disc and/or osteophytes cause minimal narrowing of the neural foramina bilaterally. The thecal sac is not stenotic. L4-L5: There is a minimum disc bulge. Disc and/or osteophytes result in mild narrowing of the neural foramina bilaterally. The thecal sac is not stenotic. L5-S1: There is mild facet and ligamentum flavum hypertrophy. The thecal sac is not stenotic. The S1 nerve roots are intact. The neural foramina are intact. IMPRESSION: No compression fracture of the lumbar spine is identified. No evidence of infection by MRI. Disc and osteophytes cause minimal narrowing of the neural foramina at L3-4 and L4-5. No stenosis of the thecal sac in the lumbar region. There is a 4 cm abdominal aneurysm at the level of L3-4 with follow-up suggested below. RECOMMENDATIONS: For management of fusiform AAA: 4.0-4.4 cm AAA, recommend follow-up every 12 months and recommend vascular consultation. * For management of saccular abdominal aortic aneurysms of any size, recommend vascular consultation. Note: For AAA enlargement of >0.5 cm in 6 months or >1 cm in 1 year, recommend vascular consultation. References: J Am Larissa Radiol 2013; 10(10):789-794; J Vasc Surg. 2018; 67:2-77 [place] MYCOPLASMA PNEUMONIAE ANTIBO DY, IGMon 10-15-2019 Mycoplasma pneumo IgM 0.12 <0.91 [place] Comment on above: Reference Range: <=0.90 Negative 0.91-1.09 Equivocal >=1.10 Positive Mycoplasma Ab, IgMon 020 Mycoplasma Ab, IgM 0.12 Normal <0.91 [facility] Comment on above: Result Comment: Reference Range: <=0.90 Negative 0.91-1.09 Equivocal >=1.10 Positive Performed By: #### C DP, CP, LIP, TROPI, LIPRF, GLYHGB #### [facility] [employer] [address] [place] [address] [employer]: Brandon Anaya MD POC Glucose Fingerstickon Glucose [Mass/Vol] 100 mg/dL 65 - 105 mg/dL [place] Glucose [Mass/Vol] 99 mg/dL 65 - 105 mg/dL [place] Glucose [Mass/Vol] 91 mg/dL 65 - 105 mg/dL [place] Glucose [Mass/Vol] 95 mg/dL 65 - 105 mg/dL [place] RENINon 10-15-2019 Renin Activity 0.1 ng/mL/hr [place] Comment on above: (NOTE) INTERPRETIVE INFORMATION: Renin Activity Adult, Normal sodium diet: Supine ................. 0.2-1.6 ng/mL/hr Upright ................ 0.5-4.0 ng/mL/hr Children, Normal sodium diet, Supine: Halls (1-7 days) ..... 2.0-35.0 ng/mL/hr Cord blood ............. 4.0-32.0 ng/mL/hr 1-12 mos ............... 2.4-37.0 ng/mL/hr 13 mos-3 yrs ........... 1.7-11.2 ng/mL/hr 4-5 yrs ................ 1.0- 6.5 ng/mL/hr 6-10 yrs ............... 0.5- 5.9 ng/mL/hr 11-15 yrs .............. 0.5- 3.3 ng/mL/hr Children, normal sodium diet, Upright: 0-3 yrs ................ Not Available 4-5 yrs ................ Less than or equal to 15 ng/mL/hr 6-10 yrs ............... Less than or equal to 17 ng/mL/hr 11-15 yrs .............. Less than or equal to 16 ng/mL/hr Plasma renin activity measures enzyme ability to convert angiotensinogen to angiotensin I and is limited by the availability of angiotensinogen. Plasma renin activity is not an accurate indicator of enzyme activity when angiotensinogen is decreased. See Compliance Statement D: www.[employer].com/CS Performed By: [employer] [address] [place] [id number] Exercise Science Instructor: Nik Rosas MD, MS Renin Comment NOT REPORTED [facility], [place] Renin Activityon 10-15-2019 Renin Activity 0.1 ng/mL/hr Normal [facility] Comment on above: Result Comment: (NOT E) INTERPRETIVE INFORMATION: Renin Activity Adult, Normal sodium diet: Supine ................. 0.2-1.6 ng/mL/hr Upright ................ 0.5-4.0 ng/mL/hr Children, Normal sodium diet, Supine: (1-7 days) ..... 2.0-35.0 ng/mL/hr Cord blood ............. 4.0-32.0 ng/mL/hr 1-12 mos ............... 2.4-37.0 ng/mL/hr 13 mos-3 yrs ........... 1.7-11.2 ng/mL/hr 4-5 yrs ................ 1.0- 6.5 ng/mL/hr 6-10 yrs ............... 0.5- 5.9 ng/mL/hr 11-15 yrs .............. 0.5- 3.3 ng/mL/hr Children, normal sodium diet, Upright: 0-3 yrs ................ Not Available 4-5 yrs ................ Less than or equal to 15 ng/mL/hr 6-10 yrs ............... Less than or equal to 17 ng/mL/hr 11-15 yrs .............. Less than or equal to 16 ng/mL/hr Plasma renin activity measures enzyme ability to convert angiotensinogen to angiotensin I and is limited by the availability of angiotensinogen. Plasma renin activity is not an accurate indicator of enzyme activity when angiotensinogen is decreased. See Compliance Statement D: www.[employer]/CS Performed By: [employer] [address] [place] [address] Exercise Science Instructor: Nik Rosas MD, MS Performed By: #### C DP, CP, LIP, TROPI, LIPRF, GLYHGB #### [place] [id number] [place], [place] [id number] [employer]: Brandon Anaya MD ALDOSTERONEon 10-14-2019 Aldosterone 5 ng/dL [place] Comment on above: (NOTE) INTERPRETIVE INFORMATION: Aldosterone, Serum Reference intervals for age 15 and older: Upright ......... 4.0 - 31.0 ng/dL Supine .......... Less than or equal to 16.0 ng/dL Unspecified ..... Less than or equal to 31.0 ng/dL Normal serum levels of aldosterone are dependent on the sodium intake and whether the patient is upright or supine. High sodium intake will tend to suppress serum aldosterone, whereas low sodium intake will elevate serum aldosterone. The reference intervals for serum aldosterone are based on normal sodium intake. Access complete set of age- and/or gender-specific reference intervals for this test in the [employer] [facility] Test Directory (World Reviewer). Performed By: [employer] [address] [place] [address] Exercise Science Instructor: Nik Rosas MD, MS Aldosterone Comment NOT REPORTED [facility] 10-14-2019 Aldosterone 5.0 ng/dL Normal [facility] Comment on above: Result Comment: (NOT E) INTERPRETIVE INFORMATION: Aldosterone, Serum Reference intervals for age 15 and older: Upright ......... 4.0 - 31.0 ng/dL Supine .......... Less than or equal to 16.0 ng/dL Unspecified ..... Less than or equal to 31.0 ng/dL Normal serum levels of aldosterone are dependent on the sodium intake and whether the patient is upright or supine. High sodium intake will tend to suppress serum aldosterone, whereas low sodium intake will elevate serum aldosterone. The reference intervals for serum aldosterone are based on normal sodium intake. Access complete set of age- and/or gender-specific reference intervals for this test in the [employer] [facility] Test Directory (World Reviewer). Performed By: [employer] [address] [place] [id number] Exercise Science Instructor: Nik Rosas MD, MS Performed By: #### C DP, CP, LIP, TROPI, LIPRF, GLYHGB #### [place] [address] [employer]: Brandon Anaya MD Basic Metab w/rfx MGon 10-13 (cont.) Normal [facility] Comment on above: Result Comment: Aver age GFR for 70 or more years old: 75 mL/min/1.73sq m Chronic Kidney Disease: <60 mL/min/1.73sq m Kidney failure: <15 mL/min/1.73sq m eGFR calculated using average adult body mass. Additional eGFR calculator available at: http://www.[employer]/multiple_crcl_2012.htm Performed By: #### C DP, CP, LIP, TROPI, LIPRF, GLYHGB #### [place] [id number] [employer]: Brandon Anaya MD Anion gap [Moles/Vol] 13 mmol/L Normal 9-17 [facility] Comment on above: Performed By: #### C DP, CP, LIP, TROPI, LIPRF, GLYHGB #### [place] [id number] [employer]: Brandon Anaya MD Calcium [Mass/Vol] 8.5 mg/dL Low 8.6-10.4 [facility] Comment on above: Performed By: #### C DP, CP, LIP, TROPI, LIPRF, GLYHGB #### [facility] [address] [place] [address] [employer]: Brandon Anaya MD Chloride [Moles/Vol] 91 mmol/L Low 98-107 [facility] Comment on above: Performed By: #### C DP, CP, LIP, TROPI, LIPRF, GLYHGB #### [facility] [address] [place] [address] [employer]: Brandon Anaya MD CO2 [Moles/Vol] 26 mmol/L Normal 20-31 [facility] Comment on above: Performed By: #### C DP, CP, LIP, TROPI, LIPRF, GLYHGB #### [address] [address] [employer]: Brandon Anaya MD Creatinine [Mass/Vol] 0.48 mg/dL Low 0.50-0.90 [facility] Comment on above: Performed By: #### C DP, CP, LIP, TROPI, LIPRF, GLYHGB #### [address] [address] [employer]: Brandon Anaya MD GFR, Amer >60 Normal >60 [facility] Comment on above: Performed By: #### C DP, CP, LIP, TROPI, LIPRF, GLYHGB #### [address] [address] [employer]: Brandon Anaya MD GFR,non Amer >60 Normal >60 [facility] Comment on above: Performed By: #### C DP, CP, LIP, TROPI, LIPRF, GLYHGB #### [facility] [employer] [address] [place] [address] [employer]: Brandon Anaya MD Glucose [Mass/Vol] 104 mg/dL High 70-99 [facility] Comment on above: Performed By: #### C DP, CP, LIP, TROPI, LIPRF, GLYHGB #### [facility] [employer] [address] [place] [address] [employer]: Brandon Anaya MD Potassium [Moles/Vol] 3.7 mmol/L Normal 3.7-5.3 [facility] Comment on above: Performed By: #### C DP, CP, LIP, TROPI, LIPRF, GLYHGB #### [address] [address] [employer]: Brandon Anaya MD Sodium [Moles/Vol] 130 mmol/L Low 135-144 [facility] Comment on above: Performed By: #### C DP, CP, LIP, TROPI, LIPRF, GLYHGB #### [address] [address] [employer]: Brandon nAaya MD Urea nitrogen [Mass/Vol] 19 mg/dL Normal 8-23 [facility] Comment on above: Performed By: #### C DP, CP, LIP, TROPI, LIPRF, GLYHGB #### [address] [address] [employer]: Brandon Anaya MD BUN/CRE Ratio NOT REPORTED Normal - [facility] Comment on above: Performed By: #### C DP, CP, LIP, TROPI, LIPRF, GLYHGB #### [facility] [employer] [address] [place] [address] [employer]: Brandon Anaya MD Staging: NOT REPORTED Normal [facility] Comment on above: Performed By: #### C DP, CP, LIP, TROPI, LIPRF, GLYHGB #### [facility] [employer] [address] [place] [address] [employer]: Brandon Anaya MD Basic Metabolic Panel w/ Ref kervin to MGon 10-14-2019 Anion gap [Moles/Vol] 13 mmol/L 9 - 17 mmol/L [place] Bun/Cre Ratio NOT REPORTED [place] Calcium [Mass/Vol] 8.5 mg/dL Low 8.6 - 10. 4 mg/dL [place] Chloride [Moles/Vol] 91 mmol/L Low 98 - 10 7 mmol/L [place] CO2 [Moles/Vol] 26 mmol/L 20 - 31 mmol/L [place] Creatinine [Mass/Vol] 0.48 mg/dL Low 0.5 - 0.9 mg/dL [place] GFR >60 >60 mL/min [place] GFR Non- >60 >60 mL/min [place] GFR/1.73 sq M predicted among non-blacks MDRD (S/P/Bld) [Vol rate/Area] [place] Comment on above: Average GFR for 70 o r more years old: 75 mL/min/1.73sq m Chronic Kidney Disease: <60 mL/min/1.73sq m Kidney failure: <15 mL/min/1.73sq m eGFR calculated using average adult body mass. Additional eGFR calculator available at: http://www.[employer]/multiple_crcl_2012.htm GFR/1.73 sq M predicted among non-blacks MDRD (S/P/Bld) [Vol rate/Area] NOT REPORTED [place] Glucose [Mass/Vol] 104 mg/dL High 70 - 99 mg/dL [place] Interpretation and review of laboratory results Abnormal [place] Potassium [Moles/Vol] 3.7 mmol/L 3.7 - 5.3 mmol/L [place] Sodium [Moles/Vol] 130 mmol/L Low 135 - 144 mmol/L [place] Urea nitrogen [Mass/Vol] 19 mg/dL 8 - 23 mg/dL [place] CBC auto differentialon 09-25 Atypical Lymphocytes 3 % [place] Atypical Lymphocytes Absolute 0.30 k/uL [place] Basophils (Bld) [#/Vol] 0.00 10*3/uL [place] Basophils/100 WBC (Bld) 0 % 0 - 2 % [place] Differential Type NOT REPORTED [place] Eosinophils (Bld) [#/Vol] 0.10 10*3/uL [place] Eosinophils/100 WBC (Bld) 1 % 1 - 4 % [place] Erythrocyte distribution width (RBC) [Ratio] 14.7 % High 11.8 - 14.4 % [place] Hematocrit (Bld) [Volume fraction] 39.5 % 36.3 - 47.1 % [place] Hemoglobin (Bld) [Mass/Vol] 12.9 g/dL 11.9 - 15.1 g/dL [place] Immature granulocytes (Bld) [#/Vol] 0.10 10*3/uL [place] Immature granulocytes (Bld) [#/Vol] 1 % High 0 [place] Interpretation and review of laboratory results Abnormal [place] Lymphocytes (Bld) [#/Vol] 2.80 10*3/uL [place] Lymphocytes/100 WBC (Bld) 28 % 24 - 44 % [place] MCH (RBC) [Entitic mass] 29.5 pg 25.2 - 33.5 pg [place] MCHC (RBC) [Mass/Vol] 32.7 g/dL 28.4 - 34.8 g/dL [place] MCV (RBC) [Entitic vol] 90.2 fL 82.6 - 102.9 fL [place] Monocytes (Bld) [#/Vol] 0.50 10*3/uL [place] Monocytes/100 WBC (Bld) 5 % 1 - 7 % [place] Morphology Alfredo (Bld) [Interp] ANISOCYTOSIS PRESENT [place] Platelet mean volume (Bld) [Entitic vol] 10.1 fL 8.1 - 13.5 fL [place] Platelets (Bld) [#/Vol] 190 10*3/uL [place] Platelets (Bld) [#/Vol] NOT REPORTED [place] RBC (Bld) [#/Vol] 4.38 10*6/uL 3.95 - 5.1 1 m/uL [place] RBC morphology finding Nom (Bld) NOT REPORTED [place] Segmented neutrophils/100 WBC (Bld) 62 % 36 - 66 % [place] Segs Absolute 6.20 [place] WBC (Bld) [#/Vol] 10.0 10*3/uL [place] WBC (Bld) [#/Vol] 0.0 10*3/uL 0.0 per 10 0 WBC [place] WBC Morphology NOT REPORTED [place] CBC with Diffon 10-14-2019 Abs. Atypical Lymphs 0.30 k/uL Normal [facility] Comment on above: Performed By: #### C DP, CP, LIP, TROPI, LIPRF, GLYHGB #### [facility] [employer] [address] [place], [place] [phone] [employer]: Brandon Anaya MD Abs. Basophil 0.00 k/uL Normal 0.0-0.2 [facility] Comment on above: Performed By: #### C DP, CP, LIP, TROPI, LIPRF, GLYHGB #### [facility] [employer] [address] [place] [address] [phone] [employer]: Branodn Anaya MD Abs.Imm.Granulocyte 0.10 k/uL Normal 0.00-0.30 [facility] Comment on above: Performed By: #### C DP, CP, LIP, TROPI, LIPRF, GLYHGB #### [facility] [employer] [address] [place] [address] [phone] [employer]: Brandon Anaya MD Abs.Neutrophil (Seg) 6.20 k/uL Normal 1.8-7.7 [facility] Comment on above: Performed By: #### C DP, CP, LIP, TROPI, LIPRF, GLYHGB #### [address] [address] [employer]: Brandon Anaya MD Atypical Lymphs 3 % Normal [facility] Comment on above: Performed By: #### C DP, CP, LIP, TROPI, LIPRF, GLYHGB #### [place] [address] [employer]: Brandon Anaya MD Basophils/100 WBC (Bld) 0 % Normal 0-2 [facility] Comment on above: Performed By: #### C DP, CP, LIP, TROPI, LIPRF, GLYHGB #### [place] [address] [employer]: Brandon Anaya MD Eosinophils (Bld) [#/Vol] 0.10 10*3/uL Normal 0.0-0.4 [facility] Comment on above: Performed By: #### C DP, CP, LIP, TROPI, LIPRF, GLYHGB #### [place] [address] [employer]: Brandon Anaya MD Eosinophils/100 WBC (Bld) 1 % Normal 1-4 [facility] Comment on above: Performed By: #### C DP, CP, LIP, TROPI, LIPRF, GLYHGB #### [place] [address] [employer]: Brandon Anaya MD Immature granulocytes (Bld) [#/Vol] 1 % High 0 [facility] Comment on above: Performed By: #### C DP, CP, LIP, TROPI, LIPRF, GLYHGB #### [address] [address] [employer]: Brandon Anaya MD Lymphocytes (Bld) [#/Vol] 2.80 10*3/uL Normal 1.0-4.8 [facility] Comment on above: Performed By: #### C DP, CP, LIP, TROPI, LIPRF, GLYHGB #### [address] [address] [employer]: Brandon Anaya MD Lymphocytes/100 WBC (Bld) 28 % Normal 24-44 [facility] Comment on above: Performed By: #### C DP, CP, LIP, TROPI, LIPRF, GLYHGB #### [facility] [employer] [address] [place] [address] [employer]: Brandon Anaya MD Monocytes (Bld) [#/Vol] 0.50 10*3/uL Normal 0.1-0.8 [facility] Comment on above: Performed By: #### C DP, CP, LIP, TROPI, LIPRF, GLYHGB #### [address] [address] [employer]: Brandon Anaya MD Monocytes/100 WBC (Bld) 5 % Normal 1-7 [facility] Comment on above: Performed By: #### C DP, CP, LIP, TROPI, LIPRF, GLYHGB #### [address] [address] [employer]: Brandon Anaya MD Morphology Alfredo (Bld) [Interp] ANISOCYTOSIS PRESENT Normal [facility] Comment on above: Performed By: #### C DP, CP, LIP, TROPI, LIPRF, GLYHGB #### [address] [address] [employer]: Brandon Anaya MD Neutrophil (Seg) 62 % Normal 36-66 [facility] Comment on above: Performed By: #### C DP, CP, LIP, TROPI, LIPRF, GLYHGB #### [address] [address] [employer]: Brandon Anaya MD Erythrocyte distribution width (RBC) [Ratio] 14.7 % High 11.8-14.4 [facility] Comment on above: Performed By: #### C DP, CP, LIP, TROPI, LIPRF, GLYHGB #### [address] [address] [employer]: Brandon Anaya MD Hematocrit (Bld) [Volume fraction] 39.5 % Normal 36.3-47.1 [facility] Comment on above: Performed By: #### C DP, CP, LIP, TROPI, LIPRF, GLYHGB #### [place] [address] [employer]: Brandon Anaya MD Hemoglobin (Bld) [Mass/Vol] 12.9 g/dL Normal 11.9-15.1 [facility] Comment on above: Performed By: #### C DP, CP, LIP, TROPI, LIPRF, GLYHGB #### [address] [address] [employer]: Brandon Anaya MD MCH (RBC) [Entitic mass] 29.5 pg Normal 25.2-33.5 [facility] Comment on above: Performed By: #### C DP, CP, LIP, TROPI, LIPRF, GLYHGB #### [address] [address] [employer]: Brandon Anaya MD MCHC (RBC) [Mass/Vol] 32.7 g/dL Normal 28.4-34.8 [facility] Comment on above: Performed By: #### C DP, CP, LIP, TROPI, LIPRF, GLYHGB #### [address] [address] [employer]: Brandon Anaya MD MCV (RBC) [Entitic vol] 90.2 fL Normal 82.6-102.9 [facility] Comment on above: Performed By: #### C DP, CP, LIP, TROPI, LIPRF, GLYHGB #### [address] [address] [employer]: Brandon Anaya MD NRBC Automated 0.0 per 100 WBC Normal 0.0 [facility] Comment on above: Performed By: #### C DP, CP, LIP, TROPI, LIPRF, GLYHGB #### [address] [address] [employer]: Brandon Anaya MD Platelet mean volume (Bld) [Entitic vol] 10.1 fL Normal 8.1-13.5 [facility] Comment on above: Performed By: #### C DP, CP, LIP, TROPI, LIPRF, GLYHGB #### [place] [address] [employer]: Brandon Anaya MD Platelets (Bld) [#/Vol] 190 10*3/uL Normal 138-453 [facility] Comment on above: Performed By: #### C DP, CP, LIP, TROPI, LIPRF, GLYHGB #### [address] [address] [employer]: Brandon Anaya MD RBC (Bld) [#/Vol] 4.38 10*6/uL Normal 3.95-5.11 [facility] Comment on above: Performed By: #### C DP, CP, LIP, TROPI, LIPRF, GLYHGB #### [address] [address] [employer]: Brandon Anaya MD WBC (Bld) [#/Vol] 10.0 10*3/uL Normal 3.5-11.3 [facility] Comment on above: Performed By: #### C DP, CP, LIP, TROPI, LIPRF, GLYHGB #### [address] [place] [address] [employer]: Brandon Anaya MD Auto Diff Performed NOT REPORTED Normal [facility] Comment on above: Performed By: #### C DP, CP, LIP, TROPI, LIPRF, GLYHGB #### [facility] [address] [place] [address] [employer]: Bradnon Anaya MD Platelets (Bld) [#/Vol] NOT REPORTED Normal [facility] Comment on above: Performed By: #### C DP, CP, LIP, TROPI, LIPRF, GLYHGB #### [facility] [address] [place] [address] [employer]: Brandon Anaya MD RBC morphology finding Nom (Bld) NOT REPORTED Normal [facility] Comment on above: Performed By: #### C DP, CP, LIP, TROPI, LIPRF, GLYHGB #### [facility] [address] [place] [address] [employer]: Brandon Anaya MD WBC Morphology NOT REPORTED Normal [facility] Comment on above: Performed By: #### C DP, CP, LIP, TROPI, LIPRF, GLYHGB #### [facility] [address] [place] [address] [employer]: Brandon Anaya MD METANEPHRINES PLASMA FREEon 10-14-2019 Metaneph/Plasma Interp See Note [facility], [place] Comment on above: (NOTE) INTERPRETIVE INFORMATION: Metanephrines, Plasma (Free) This test is useful in the detection of pheochromocytoma, a rare neuroendocrine tumor. The majority of patients with pheochromocytoma have a plasma normetanephrine concentration in excess of 2.2 nmol/L and/or a metanephrine concentration in excess of 1.1 nmol/L. Increased concentrations of these analytes serve as confirmation for diagnosis. Patients with essential hypertension and plasma concentrations of normetanephrine below 0.9 nmol/L and a metanephrine concentration below 0.5 nmol/L, can be excluded from further testing. If clinical suspicion remains, repeat testing or testing for metanephrines in a 24-hr. urine specimen should be considered. See Compliance Statement B: [employer] Performed By: [employer] [address] [place] [id number] Exercise Science Instructor: Nik Rosas MD, [place] Metanephrine 0.14 nmol/L 0 - 0.49 nmol/L [place] Normetanephrine 0.73 nmol/L 0 - 0.89 nmol/L [facility], [place] Metanephrine, Plasmaon 10-13 Metaneph Interp See Note Normal [facility] Comment on above: Result Comment: (NOT E) INTERPRETIVE INFORMATION: Metanephrines, Plasma (Free) This test is useful in the detection of pheochromocytoma, a rare neuroendocrine tumor. The majority of patients with pheochromocytoma have a plasma normetanephrine concentration in excess of 2.2 nmol/L and/or a metanephrine concentration in excess of 1.1 nmol/L. Increased concentrations of these analytes serve as confirmation for diagnosis. Patients with essential hypertension and plasma concentrations of normetanephrine below 0.9 nmol/L and a metanephrine concentration below 0.5 nmol/L, can be excluded from further testing. If clinical suspicion remains, repeat testing or testing for metanephrines in a 24-hr. urine specimen should be considered. See Compliance Statement B: [employer] Performed By: [employer] [address] [place] [id number] Exercise Science Instructor: Nik Rosas MD, MS Performed By: #### C DP, CP, LIP, TROPI, LIPRF, GLYHGB #### [facility] [place], [place] [phone] [employer]: Brandon Anaya MD Metanephrine 0.14 nmol/L Normal 0.00-0.49 [facility] Comment on above: Performed By: #### C DP, CP, LIP, TROPI, LIPRF, GLYHGB #### [facility] [place] [address] [employer]: Brandon Anaya MD Normetanephrine 0.73 nmol/L Normal 0.00-0.89 [facility] Comment on above: Performed By: #### C JUAN GARZA, LIP, TROPI, LIPRF, GLYHGB #### [facility] [employer] [address] [place], [place] [phone] [employer]: Brandon Anaya MD POC Glucose Fingerstickon Glucose [Mass/Vol] 86 mg/dL 65 - 105 mg/dL [place] Glucose [Mass/Vol] 105 mg/dL 65 - 105 mg/dL [place] Glucose [Mass/Vol] 159 mg/dL High 65 - 105 mg/dL [place] Interpretation and review of laboratory results Abnormal [place] Glucose [Mass/Vol] 113 mg/dL High 65 - 105 mg/dL [place] Interpretation and review of laboratory results Abnormal [place] T. pallidum Abon 10-14-2019 T. pallidum, IgG NONREACTIVE NONREACTIVE [place] Comment on above: T. pallidum antibodies are not detected. There is no serological evidence of infection with T. pallidum (early primary syphilis cannot be excluded). Retest in 2-4 weeks if syphilis is clinically suspect. T.pallidum Ab Screenon 10-13 T.pallidum Ab Screen NONREACTIVE Normal NR [facility] Comment on above: Result Comment: T. pallidum antibodies are not detected. There is no serological evidence of infection with T. pallidum (early primary syphilis cannot be excluded). Retest in 2-4 weeks if syphilis is clinically suspect. Performed By: #### C DP, CP, LIP, TROPI, LIPRF, GLYHGB #### [facility] [employer] [address] [place], [place] [phone] [employer]: Brandon Anaya MD AMMONIAon 10-13-2019 Ammonia (P) [Mass/Vol] 28 umol/L 11 - 51 umol/L [place] Ammoniaon 10-13-2019 Ammonia (P) [Mass/Vol] 28 umol/L Normal 11-51 [facility] Comment on above: Performed By: #### C DP, CP, LIP, TROPI, LIPRF, GLYHGB #### [facility] [address] [place] [address] [employer]: Brandon Anaya MD BLOOD GAS, VENOUSon 10-13-19 20 Andrés Test NOT REPORTED [facility] [place] aPTT Coag (Bld) [Time] 37.0 s [facility] [place] Carboxyhemoglobin 1.3 % 0 - 5 % [facility] [place] Comment on above: Reference Range: Non-Smokers 0-2% Average Smoker 2-4% Heavy Smoker <10% FIO2 ROOM AIR [facility], [place] HCO3, Venous 28.4 mmol/L 24 - 30 mmol/L [facility] [place] Interpretation and review of laboratory results Abnormal [facility] [place] Methemoglobin NOT REPORTED 0 - 1.5 % [facility] [place] Mode NOT REPORTED [facility] [place] Negative Base Excess, Noah NOT REPORTED 0 - 2 mmol/L [facility] [place] NOTIFICATION NOT REPORTED [facility] [place] NOTIFICATION TIME NOT REPORTED [facility] [place] O2 Device/Flow/% NOT REPORTED [facility] [place] Oxygen saturation in Blood 78.1 % 60 - 85 % [facility] [place] Oxyhemoglobin NOT REPORTED 95 - 98 % [facility] [place] pCO2, Noah 42.6 [facility] [place] pCO2, Noah, Temp Adj NOT REPORTED [facility] [place] Peep/Cpap NOT REPORTED [facility] [place] pH, Noah 7.439 High [facility] [place] pH, Noah, Temp Adj NOT REPORTED [facility] [place] pO2, Noah 41.1 [facility] [place] pO2, Noah, Temp Adj NOT REPORTED [facility] [place] Positive Base Excess, Noah 4.2 mmol/L High 0 - 2 mmol/L [facility] [place] PSV NOT REPORTED [facility] [place] Pt. Position NOT REPORTED [facility] [place] Sample Site NOT REPORTED [facility] [place] Set Rate NOT REPORTED [place] Text for Respiratory NOT REPORTED [facility], [place] Total Hb NOT REPORTED 12 - 16 g/dl [place] Total Rate NOT REPORTED [place] VT NOT REPORTED [place] Basic Metab w/rfx MGon 10-12 Potassium [Moles/Vol] 3.4 mmol/L Low 3.7-5.3 [facility] Comment on above: Performed By: #### C DP, CP, LIP, TROPI, LIPRF, GLYHGB #### [employer] [address] [place] [address] [phone] [employer]: Brandon Anaya MD (cont.) [facility] Comment on above: Result Comment: Aver age GFR for 70 or more years old: 75 mL/min/1.73sq m Chronic Kidney Disease: <60 mL/min/1.73sq m Kidney failure: <15 mL/min/1.73sq m eGFR calculated using average adult body mass. Additional eGFR calculator available at: http://www.[employer]/multiple_crcl_2012.htm Performed By: #### C DP, CP, LIP, TROPI, LIPRF, GLYHGB #### [facility] [address] [place] [address] [phone] [employer]: Brandon Anaya MD Anion gap [Moles/Vol] 16 mmol/L Normal 9-17 [facility] Comment on above: Performed By: #### C DP, CP, LIP, TROPI, LIPRF, GLYHGB #### [employer] [address] [place] [address] [phone] [employer]: Brandon Anaya MD Calcium [Mass/Vol] 9.0 mg/dL Normal 8.6-10.4 [facility] Comment on above: Performed By: #### C DP, CP, LIP, TROPI, LIPRF, GLYHGB #### [facility] [employer] [address] [place] [address] [phone] [employer]: Brandon Anaya MD Chloride [Moles/Vol] 90 mmol/L Low 98-107 [facility] Comment on above: Performed By: #### C DP, CP, LIP, TROPI, LIPRF, GLYHGB #### [facility] [address] [place] [address] [employer]: Brandon Anaya MD CO2 [Moles/Vol] 25 mmol/L Normal 20-31 [facility] Comment on above: Performed By: #### C DP, CP, LIP, TROPI, LIPRF, GLYHGB #### [facility] [address] [place] [address] [employer]: Brandon Anaya MD Creatinine [Mass/Vol] 0.47 mg/dL Low 0.50-0.90 [facility] Comment on above: Performed By: #### C DP, CP, LIP, TROPI, LIPRF, GLYHGB #### [facility] [employer] [address] [place] [address] [employer]: Brandon Anaya MD GFR, Amer >60 Normal >60 [facility] Comment on above: Performed By: #### C DP, CP, LIP, TROPI, LIPRF, GLYHGB #### [facility] [employer] [address] [place] [address] [employer]: Brandon Anaya MD GFR,non Amer >60 Normal >60 [facility] Comment on above: Performed By: #### C DP, CP, LIP, TROPI, LIPRF, GLYHGB #### [facility] [employer] [address] [place] [address] [employer]: Brandon Anaya MD Glucose [Mass/Vol] 113 mg/dL High 70-99 [facility] Comment on above: Performed By: #### C DP, CP, LIP, TROPI, LIPRF, GLYHGB #### [facility] [employer] [address] [place] [address] [phone] [employer]: Brandon Anaya MD Sodium [Moles/Vol] 131 mmol/L Low 135-144 [facility] Comment on above: Performed By: #### C DP, CP, LIP, TROPI, LIPRF, GLYHGB #### [email or web address] [address] [place], [place] [phone] [employer]: Brandon Anaya MD Urea nitrogen [Mass/Vol] 16 mg/dL Normal 8- [facility] Comment on above: Performed By: #### C DP, CP, LIP, TROPI, LIPRF, GLYHGB #### [facility] [address] [place] [address] [employer]: Brandon Anaya MD BUN/CRE Ratio NOT REPORTED Normal - [facility] Comment on above: Performed By: #### C DP, CP, LIP, TROPI, LIPRF, GLYHGB #### [email or web address] [address] [place], [place] [phone] [employer]: Brandon Anaya MD Staging: NOT REPORTED Normal [facility] Comment on above: Performed By: #### C DP, CP, LIP, TROPI, LIPRF, GLYHGB #### [email or web address] [address] [place], [place] [phone] [employer]: Brandon Anaya MD Basic Metabolic Panel w/ Ref kervin to MGon 10-13-2019 Anion gap [Moles/Vol] 16 mmol/L 9 - 17 mmol/L [place] Bun/Cre Ratio NOT REPORTED [place] Calcium [Mass/Vol] 9.0 mg/dL 8.6 - 10. 4 mg/dL [place] Chloride [Moles/Vol] 90 mmol/L Low 98 - 10 7 mmol/L [place] CO2 [Moles/Vol] 25 mmol/L 20 - 31 mmol/L [place] Creatinine [Mass/Vol] 0.47 mg/dL Low 0.5 - 0.9 mg/dL [place] GFR >60 >60 mL/min [place] GFR Non- >60 >60 mL/min [place] GFR/1.73 sq M predicted among non-blacks MDRD (S/P/Bld) [Vol rate/Area] NOT REPORTED [place] GFR/1.73 sq M predicted among non-blacks MDRD (S/P/Bld) [Vol rate/Area] [place] Comment on above: Average GFR for 70 o r more years old: 75 mL/min/1.73sq m Chronic Kidney Disease: <60 mL/min/1.73sq m Kidney failure: <15 mL/min/1.73sq m eGFR calculated using average adult body mass. Additional eGFR calculator available at: http://www.[employer]/multiple_crcl_2012.htm Glucose [Mass/Vol] 113 mg/dL High 70 - 99 mg/dL [place] Interpretation and review of laboratory results Abnormal [place] Potassium [Moles/Vol] 3.4 mmol/L Low 3.7 - 5.3 mmol/L [place] Sodium [Moles/Vol] 131 mmol/L Low 135 - 144 mmol/L [place] Urea nitrogen [Mass/Vol] 16 mg/dL 8 - 23 mg/dL [place] CBC auto differentialon 09-24 Basophils (Bld) [#/Vol] 0.07 10*3/uL [place] Basophils/100 WBC (Bld) 1 % 0 - 2 % [place] Differential Type NOT REPORTED [place] Eosinophils (Bld) [#/Vol] 10*3/uL [place] Eosinophils/100 WBC (Bld) 0 % Low 1 - 4 % [place] Erythrocyte distribution width (RBC) [Ratio] 15.0 % High 11.8 - 14.4 % [place] Hematocrit (Bld) [Volume fraction] 45.5 % 36.3 - 47.1 % [place] Hemoglobin (Bld) [Mass/Vol] 14.5 g/dL 11.9 - 15.1 g/dL [place] Immature granulocytes (Bld) [#/Vol] 0.14 10*3/uL [place] Immature granulocytes (Bld) [#/Vol] 1 % High 0 [place] Interpretation and review of laboratory results Abnormal [place] Lymphocytes (Bld) [#/Vol] 2.84 10*3/uL [place] Lymphocytes/100 WBC (Bld) 23 % Low 24 - 43 % [place] MCH (RBC) [Entitic mass] 29.8 pg 25.2 - 33.5 pg [place] MCHC (RBC) [Mass/Vol] 31.9 g/dL 28.4 - 34.8 g/dL [place] MCV (RBC) [Entitic vol] 93.4 fL 82.6 - 102.9 fL [place] Monocytes (Bld) [#/Vol] 1.22 10*3/uL High [place] Monocytes/100 WBC (Bld) 10 % 3 - 12 % [place] Platelet mean volume (Bld) [Entitic vol] 10.5 fL 8.1 - 13.5 fL [place] Platelets (Bld) [#/Vol] NOT REPORTED [place] Platelets (Bld) [#/Vol] 210 10*3/uL [place] RBC (Bld) [#/Vol] 4.87 10*6/uL 3.95 - 5.1 1 m/uL [place] RBC morphology finding Nom (Bld) ANISOCYTOSIS PRESENT [place] Segmented neutrophils/100 WBC (Bld) 65 % 36 - 65 % [place] Segs Absolute 8.01 [place] WBC (Bld) [#/Vol] 12.3 10*3/uL High [place] WBC (Bld) [#/Vol] 0.0 10*3/uL 0.0 per 10 0 WBC [place] WBC Morphology NOT REPORTED [place] CBC with Diffon 08-19-2020 Abs. Basophil 0.07 k/uL Normal 0.00-0.20 [facility] Comment on above: Performed By: #### C DP, CP, LIP, TROPI, LIPRF, GLYHGB #### [address] [address] [employer]: Brandon Anaya MD Abs.Imm.Granulocyte 0.14 k/uL Normal 0.00-0.30 [facility] Comment on above: Performed By: #### C DP, CP, LIP, TROPI, LIPRF, GLYHGB #### [address] [address] [employer]: Brandon Anaya MD Abs.Neutrophil (Seg) 8.01 k/uL Normal 1.50-8.10 [facility] Comment on above: Performed By: #### C DP, CP, LIP, TROPI, LIPRF, GLYHGB #### [address] [address] [employer]: Brandon Anaya MD Basophils/100 WBC (Bld) 1 % Normal 0-2 [facility] Comment on above: Performed By: #### C DP, CP, LIP, TROPI, LIPRF, GLYHGB #### [address] [address] [employer]: Brandon Anaya MD Eosinophils (Bld) [#/Vol] 10*3/uL Normal 0.00-0.44 [facility] Comment on above: Performed By: #### C DP, CP, LIP, TROPI, LIPRF, GLYHGB #### [address] [address] [employer]: Brandon Anaya MD Eosinophils/100 WBC (Bld) 0 % Low 1-4 [facility] Comment on above: Performed By: #### C DP, CP, LIP, TROPI, LIPRF, GLYHGB #### [facility] [employer] [address] [place] [address] [employer]: Brandon Anaya MD Erythrocyte distribution width (RBC) [Ratio] 15.0 % High 11.8-14.4 [facility] Comment on above: Performed By: #### C DP, CP, LIP, TROPI, LIPRF, GLYHGB #### [address] [address] [employer]: Brandon Anaya MD Hematocrit (Bld) [Volume fraction] 45.5 % Normal 36.3-47.1 [facility] Comment on above: Performed By: #### C DP, CP, LIP, TROPI, LIPRF, GLYHGB #### [address] [address] [employer]: Brandon Anaya MD Hemoglobin (Bld) [Mass/Vol] 14.5 g/dL Normal 11.9-15.1 [facility] Comment on above: Performed By: #### C DP, CP, LIP, TROPI, LIPRF, GLYHGB #### [address] [address] [employer]: Brandon Anaya MD Immature granulocytes (Bld) [#/Vol] 1 % High 0 [facility] Comment on above: Performed By: #### C DP, CP, LIP, TROPI, LIPRF, GLYHGB #### [address] [address] [employer]: Brandon Anaya MD Lymphocytes (Bld) [#/Vol] 2.84 10*3/uL Normal 1.10-3.70 [facility] Comment on above: Performed By: #### C DP, CP, LIP, TROPI, LIPRF, GLYHGB #### [address] [address] [employer]: Brandon Anaya MD Lymphocytes/100 WBC (Bld) 23 % Low 24-43 [facility] Comment on above: Performed By: #### C DP, CP, LIP, TROPI, LIPRF, GLYHGB #### [facility] [employer] [address] [place] [address] [employer]: Brandon Anaya MD MCH (RBC) [Entitic mass] 29.8 pg Normal 25.2-33.5 [facility] Comment on above: Performed By: #### C DP, CP, LIP, TROPI, LIPRF, GLYHGB #### [address] [address] [employer]: Brandon Anaya MD MCHC (RBC) [Mass/Vol] 31.9 g/dL Normal 28.4-34.8 [facility] Comment on above: Performed By: #### C DP, CP, LIP, TROPI, LIPRF, GLYHGB #### [place] [address] [employer]: Brandon Anaya MD MCV (RBC) [Entitic vol] 93.4 fL Normal 82.6-102.9 [facility] Comment on above: Performed By: #### C DP, CP, LIP, TROPI, LIPRF, GLYHGB #### [place] [address] [employer]: Brandon Anaya MD Monocytes (Bld) [#/Vol] 1.22 10*3/uL High 0.10-1.20 [facility] Comment on above: Performed By: #### C DP, CP, LIP, TROPI, LIPRF, GLYHGB #### [address] [address] [employer]: Brandon Anaya MD Monocytes/100 WBC (Bld) 10 % Normal 3-12 [facility] Comment on above: Performed By: #### C DP, CP, LIP, TROPI, LIPRF, GLYHGB #### [address] [address] [employer]: Brandon Anaya MD Neutrophil (Seg) 65 % Normal 36-65 [facility] Comment on above: Performed By: #### C DP, CP, LIP, TROPI, LIPRF, GLYHGB #### [address] [address] [employer]: Brandon Anaya MD NRBC Automated 0.0 per 100 WBC Normal 0.0 [facility] Comment on above: Performed By: #### C DP, CP, LIP, TROPI, LIPRF, GLYHGB #### [address] [address] [employer]: Brandon Anaya MD Platelet mean volume (Bld) [Entitic vol] 10.5 fL Normal 8.1-13.5 [facility] Comment on above: Performed By: #### C DP, CP, LIP, TROPI, LIPRF, GLYHGB #### [address] [address] [employer]: Brandon Anaya MD Platelets (Bld) [#/Vol] 210 10*3/uL Normal 138-453 [facility] Comment on above: Performed By: #### C DP, CP, LIP, TROPI, LIPRF, GLYHGB #### [address] [address] [employer]: Brandon Anaya MD RBC (Bld) [#/Vol] 4.87 10*6/uL Normal 3.95-5.11 [facility] Comment on above: Performed By: #### C DP, CP, LIP, TROPI, LIPRF, GLYHGB #### [address] [address] [employer]: Brandon Anaya MD RBC morphology finding Nom (Bld) ANISOCYTOSIS PRESENT Normal [facility] Comment on above: Performed By: #### C DP, CP, LIP, TROPI, LIPRF, GLYHGB #### [address] [address] [employer]: Brandon Anaya MD WBC (Bld) [#/Vol] 12.3 10*3/uL High 3.5-11.3 [facility] Comment on above: Performed By: #### C DP, CP, LIP, TROPI, LIPRF, GLYHGB #### [address] [address] [employer]: Brandon Anaya MD Auto Diff Performed NOT REPORTED Normal [facility] Comment on above: Performed By: #### C DP, CP, LIP, TROPI, LIPRF, GLYHGB #### [address] [address] [employer]: Brandon Anaya MD Platelets (Bld) [#/Vol] NOT REPORTED Normal [facility] Comment on above: Performed By: #### C DP, CP, LIP, TROPI, LIPRF, GLYHGB #### [address] [address] [employer]: Brandon Anaya MD WBC Morphology NOT REPORTED Normal [facility] Comment on above: Performed By: #### C DP, CP, LIP, TROPI, LIPRF, GLYHGB #### [address] [address] [employer]: Brandon Anaya MD Magnesiumon 10-13-2019 Magnesium [Mass/Vol] 2.2 mg/dL Normal 1.6-2.6 [facility] Comment on above: Performed By: #### C DP, CP, LIP, TROPI, LIPRF, GLYHGB #### [address] [address] [employer]: Brandon Anaya MD Magnesium [Mass/Vol] 2.2 mg/dL 1.6 - 2 .6 mg/dL [place] POC Glucose Fingerstickon Glucose [Mass/Vol] 121 mg/dL High 65 - 105 mg/dL [place] Interpretation and review of laboratory results Abnormal [place] Glucose [Mass/Vol] 100 mg/dL 65 - 105 mg/dL [place] Glucose [Mass/Vol] 104 mg/dL 65 - 105 mg/dL [place] Glucose [Mass/Vol] 123 mg/dL High 65 - 105 mg/dL [place] Interpretation and review of laboratory results Abnormal [place] Venous Blood Gaseson 020 Body Temp. 37.0 Normal [facility] Comment on above: Performed By: #### C DP, CP, LIP, TROPI, LIPRF, GLYHGB #### [address] [id number] [employer]: Brandon Anaya MD Carboxy Hgb 1.3 % Normal 0-5 [facility] Comment on above: Result Comment: Reference Range: Non-Smokers 0-2% Average Smoker 2-4% Heavy Smoker <10% Performed By: #### C DP, CP, LIP, TROPI, LIPRF, GLYHGB #### [address] [phone] [employer]: Brandon Anaya MD FIO2 ROOM AIR Normal [facility] Comment on above: Performed By: #### C DP, CP, LIP, TROPI, LIPRF, GLYHGB #### [address] [phone] [employer]: Brandon Anaya MD HCO3 (Bld) [Moles/Vol] 28.4 mmol/L Normal 24-30 [facility] Comment on above: Performed By: #### C DP, CP, LIP, TROPI, LIPRF, GLYHGB #### [address] [address] [employer]: Brandon Anaya MD Oxygen (Bld) [Partial pressure] 41.1 mm[Hg] Normal 30-50 [facility] Comment on above: Performed By: #### C DP, CP, LIP, TROPI, LIPRF, GLYHGB #### [address] [address] [employer]: Brandon Anaya MD Oxygen saturation in Blood 78.1 % Normal 60.0-85.0 [facility] Comment on above: Performed By: #### C DP, CP, LIP, TROPI, LIPRF, GLYHGB #### [address] [address] [employer]: Brandon Anaya MD pCO2 42.6 Normal 39-55 [facility] Comment on above: Performed By: #### C DP, CP, LIP, TROPI, LIPRF, GLYHGB #### [address] [address] [employer]: Brandon Anaya MD pH (Bld) 7.439 [pH] High 7.320-7.420 [facility] Comment on above: Performed By: #### C DP, CP, LIP, TROPI, LIPRF, GLYHGB #### [address] [address] [employer]: Brandon Anaya MD Positive Base Excess 4.2 mmol/L High 0.0-2.0 [facility] Comment on above: Performed By: #### C DP, CP, LIP, TROPI, LIPRF, GLYHGB #### [address] [address] [employer]: Brandon Anaya MD Andrés Test NOT REPORTED Normal [facility] Comment on above: Performed By: #### C DP, CP, LIP, TROPI, LIPRF, GLYHGB #### [address] [address] [employer]: Brandon Anaya MD Methemoglobin NOT REPORTED Normal 0.0-1.5 [facility] Comment on above: Performed By: #### C DP, CP, LIP, TROPI, LIPRF, GLYHGB #### [facility] [address] [place] [address] [employer]: Brandon Anaya MD Mode NOT REPORTED Normal [facility] Comment on above: Performed By: #### C DP, CP, LIP, TROPI, LIPRF, GLYHGB #### [address] [address] [employer]: Brandon Anaya MD Negative Base Excess NOT REPORTED Normal 0.0-2.0 [facility] Comment on above: Performed By: #### C DP, CP, LIP, TROPI, LIPRF, GLYHGB #### [address] [address] [employer]: Brandon Anaya MD Notification Time NOT REPORTED Normal [facility] Comment on above: Performed By: #### C DP, CP, LIP, TROPI, LIPRF, GLYHGB #### [address] [address] [employer]: Brandon Anaya MD Notification: NOT REPORTED Normal [facility] Comment on above: Performed By: #### C DP, CP, LIP, TROPI, LIPRF, GLYHGB #### [address] [address] [employer]: Brandon Anaya MD O2 Device/Flow/% NOT REPORTED Normal [facility] Comment on above: Performed By: #### C DP, CP, LIP, TROPI, LIPRF, GLYHGB #### [address] [address] [employer]: Brandon Anaya MD Oxyhemoglobin NOT REPORTED Normal 95.0-98.0 [facility] Comment on above: Performed By: #### C DP, CP, LIP, TROPI, LIPRF, GLYHGB #### [address] [address] [employer]: Brandon Anaya MD Pco2 Adj'd for Temp. NOT REPORTED Normal 39-55 [facility] Comment on above: Performed By: #### C DP, CP, LIP, TROPI, LIPRF, GLYHGB #### [address] [address] [employer]: Brandon Anaya MD PEEP/CPAP NOT REPORTED Normal [facility] Comment on above: Performed By: #### C DP, CP, LIP, TROPI, LIPRF, GLYHGB #### [address] [address] [employer]: Brandon Anaya MD pH Adjst'd for Temp. NOT REPORTED Normal 7.320-7.420 [facility] Comment on above: Performed By: #### C DP, CP, LIP, TROPI, LIPRF, GLYHGB #### [address] [address] [employer]: Brandon Anaya MD pO2 Adj'd for Temp. NOT REPORTED Normal 30-50 [facility] Comment on above: Performed By: #### C DP, CP, LIP, TROPI, LIPRF, GLYHGB #### [address] [address] [employer]: Brandon Anaya MD PSV NOT REPORTED Normal [facility] Comment on above: Performed By: #### C DP, CP, LIP, TROPI, LIPRF, GLYHGB #### [address] [place] [address] [employer]: Brandon Anaya MD Pt. Position NOT REPORTED Normal [facility] Comment on above: Performed By: #### C DP, CP, LIP, TROPI, LIPRF, GLYHGB #### [address] [address] [employer]: Brandon Anaya MD Set Rate NOT REPORTED Normal [facility] Comment on above: Performed By: #### C DP, CP, LIP, TROPI, LIPRF, GLYHGB #### [address] [address] [employer]: Brandon Anaya MD Site Drawn NOT REPORTED Normal [facility] Comment on above: Performed By: #### C DP, CP, LIP, TROPI, LIPRF, GLYHGB #### [address] [address] [employer]: Brandon Anaya MD Text for Respiratory NOT REPORTED Normal [facility] Comment on above: Performed By: #### C DP, CP, LIP, TROPI, LIPRF, GLYHGB #### [address] [address] [employer]: Brandon Anaya MD Total Hb NOT REPORTED Normal 12.0-16.0 [facility] Comment on above: Performed By: #### C DP, CP, LIP, TROPI, LIPRF, GLYHGB #### [facility] [employer] [address] [place] [address] [employer]: Brandon Anaya MD Total Rate NOT REPORTED Normal [facility] Comment on above: Performed By: #### C DP, CP, LIP, TROPI, LIPRF, GLYHGB #### [facility] [employer] [address] [place] [address] [employer]: Brandon Anaya MD [place] NOT REPORTED Normal [facility] Comment on above: Performed By: #### C DP, CP, LIP, TROPI, LIPRF, GLYHGB #### [facility] [address] [place] [address] [employer]: Brandon [facility] Comment: NOT REPORTED Normal [facility] Comment on above: Performed By: #### C DP, CP, LIP, TROPI, LIPRF, GLYHGB #### [address] [address] [employer]: Brandon Anaya MD Basic Metab w/rfx [facility] 10-11 Potassium [Moles/Vol] 3.3 mmol/L Low 3.7-5.3 [facility] Comment on above: Performed By: #### C DP, CP, LIP, TROPI, LIPRF, GLYHGB #### [address] [address] [employer]: Brandon Anaya MD (cont.) Normal [facility] Comment on above: Result Comment: Aver age GFR for 70 or more years old: 75 mL/min/1.73sq m Chronic Kidney Disease: <60 mL/min/1.73sq m Kidney failure: <15 mL/min/1.73sq m eGFR calculated using average adult body mass. Additional eGFR calculator available at: http://www.[employer]/multiple_crcl_2011.htm Performed By: #### C DP, CP, LIP, TROPI, LIPRF, GLYHGB #### [address] [address] [employer]: Brandon Anaya MD Anion gap [Moles/Vol] 12 mmol/L Normal 9-17 [facility] Comment on above: Performed By: #### C DP, CP, LIP, TROPI, LIPRF, GLYHGB #### [address] [address] [employer]: Brandon Anaya MD Calcium [Mass/Vol] 8.6 mg/dL Normal 8.6-10.4 [facility] Comment on above: Performed By: #### C DP, CP, LIP, TROPI, LIPRF, GLYHGB #### [address] [address] [employer]: Brandon Anaya MD Chloride [Moles/Vol] 94 mmol/L Low 98-107 [facility] Comment on above: Performed By: #### C DP, CP, LIP, TROPI, LIPRF, GLYHGB #### [address] [address] [employer]: Brandon Anaya MD CO2 [Moles/Vol] 26 mmol/L Normal 20-31 [facility] Comment on above: Performed By: #### C DP, CP, LIP, TROPI, LIPRF, GLYHGB #### [address] [address] [employer]: Brandon Anaya MD Creatinine [Mass/Vol] 0.46 mg/dL Low 0.50-0.90 [facility] Comment on above: Performed By: #### C DP, CP, LIP, TROPI, LIPRF, GLYHGB #### [address] [address] [employer]: Brandon Anaya MD GFR, Amer >60 Normal >60 [facility] Comment on above: Performed By: #### C DP, CP, LIP, TROPI, LIPRF, GLYHGB #### [address] [address] [employer]: Brandon Anaya MD GFR,non Amer >60 Normal >60 [facility] Comment on above: Performed By: #### C DP, CP, LIP, TROPI, LIPRF, GLYHGB #### [facility] [employer] [address] [place] [address] [place] [address] [employer]: Brandon Anaya MD Glucose [Mass/Vol] 136 mg/dL High 70-99 [facility] Comment on above: Performed By: #### C DP, CP, LIP, TROPI, LIPRF, GLYHGB #### [address] [address] [employer]: Brandon Anaya MD Sodium [Moles/Vol] 132 mmol/L Low 135-144 [facility] Comment on above: Performed By: #### C DP, CP, LIP, TROPI, LIPRF, GLYHGB #### [address] [address] [employer]: Brandon Anaya MD Urea nitrogen [Mass/Vol] 16 mg/dL Normal 8- [facility] Comment on above: Performed By: #### C DP, CP, LIP, TROPI, LIPRF, GLYHGB #### [address] [address] [employer]: Brandon Anaya MD BUN/CRE Ratio NOT REPORTED Normal 11-13 [facility] Comment on above: Performed By: #### C DP, CP, LIP, TROPI, LIPRF, GLYHGB #### [facility] [employer] [address] [place] [address] [employer]: Brandon Anaya MD Staging: NOT REPORTED Normal [facility] Comment on above: Performed By: #### C DP, CP, LIP, TROPI, LIPRF, GLYHGB #### [facility] [employer] [address] [place] [address] [employer]: Brandon Anaya MD Basic Metabolic Panel w/ Ref kervin to MGon 10-12-2019 Anion gap [Moles/Vol] 12 mmol/L 9 - 17 mmol/L [place] Bun/Cre Ratio NOT REPORTED [place] Calcium [Mass/Vol] 8.6 mg/dL 8.6 - 10. 4 mg/dL [place] Chloride [Moles/Vol] 94 mmol/L Low 98 - 10 7 mmol/L [place] CO2 [Moles/Vol] 26 mmol/L 20 - 31 mmol/L [place] Creatinine [Mass/Vol] 0.46 mg/dL Low 0.5 - 0.9 mg/dL [place] GFR >60 >60 mL/min [place] GFR Non- >60 >60 mL/min [place] GFR/1.73 sq M predicted among non-blacks MDRD (S/P/Bld) [Vol rate/Area] [place] Comment on above: Average GFR for 70 o r more years old: 75 mL/min/1.73sq m Chronic Kidney Disease: <60 mL/min/1.73sq m Kidney failure: <15 mL/min/1.73sq m eGFR calculated using average adult body mass. Additional eGFR calculator available at: http://www.[employer]/multiple_crcl_2012.htm GFR/1.73 sq M predicted among non-blacks MDRD (S/P/Bld) [Vol rate/Area] NOT REPORTED [place] Glucose [Mass/Vol] 136 mg/dL High 70 - 99 mg/dL [place] Interpretation and review of laboratory results Abnormal [place] Potassium [Moles/Vol] 3.3 mmol/L Low 3.7 - 5.3 mmol/L [place] Sodium [Moles/Vol] 132 mmol/L Low 135 - 144 mmol/L [place] Urea nitrogen [Mass/Vol] 16 mg/dL 8 - 23 mg/dL [place] CBC auto differentialon 09-24 Basophils (Bld) [#/Vol] 0.04 10*3/uL [place] Basophils/100 WBC (Bld) 0 % 0 - 2 % [place] Differential Type NOT REPORTED [place] Eosinophils (Bld) [#/Vol] 10*3/uL [place] Eosinophils/100 WBC (Bld) 0 % Low 1 - 4 % [place] Erythrocyte distribution width (RBC) [Ratio] 14.7 % High 11.8 - 14.4 % [place] Hematocrit (Bld) [Volume fraction] 40.5 % 36.3 - 47.1 % [place] Hemoglobin (Bld) [Mass/Vol] 12.7 g/dL 11.9 - 15.1 g/dL [place] Immature granulocytes (Bld) [#/Vol] 0.11 10*3/uL [place] Immature granulocytes (Bld) [#/Vol] 1 % High 0 [place] Interpretation and review of laboratory results Abnormal [place] Lymphocytes (Bld) [#/Vol] 1.50 10*3/uL [place] Lymphocytes/100 WBC (Bld) 12 % Low 24 - 43 % [place] MCH (RBC) [Entitic mass] 29.4 pg 25.2 - 33.5 pg [place] MCHC (RBC) [Mass/Vol] 31.4 g/dL 28.4 - 34.8 g/dL [place] MCV (RBC) [Entitic vol] 93.8 fL 82.6 - 102.9 fL [place] Monocytes (Bld) [#/Vol] 0.87 10*3/uL [place] Monocytes/100 WBC (Bld) 7 % 3 - 12 % [place] Platelet mean volume (Bld) [Entitic vol] 10.7 fL 8.1 - 13.5 fL [place] Platelets (Bld) [#/Vol] 196 10*3/uL [place] Platelets (Bld) [#/Vol] NOT REPORTED [place] RBC (Bld) [#/Vol] 4.32 10*6/uL 3.95 - 5.1 1 m/uL [place] RBC morphology finding Nom (Bld) ANISOCYTOSIS PRESENT [place] Segmented neutrophils/100 WBC (Bld) 79 % High 36 - 65 % [place] Segs Absolute 9.64 High [place] WBC (Bld) [#/Vol] 12.2 10*3/uL High [place] WBC (Bld) [#/Vol] 0.0 10*3/uL 0.0 per 10 0 WBC [place] WBC Morphology NOT REPORTED [place] CBC with Diffon 10-12-2019 Abs. Basophil 0.04 k/uL Normal 0.00-0.20 [facility] Comment on above: Performed By: #### C DP, CP, LIP, TROPI, LIPRF, GLYHGB #### [place] [address] [employer]: Brandon Anaya MD Abs.Imm.Granulocyte 0.11 k/uL Normal 0.00-0.30 [facility] Comment on above: Performed By: #### C DP, CP, LIP, TROPI, LIPRF, GLYHGB #### [facility] [employer] [address] [place] [address] [employer]: Brandon Anaya MD Abs.Neutrophil (Seg) 9.64 k/uL High 1.50-8.10 [facility] Comment on above: Performed By: #### C DP, CP, LIP, TROPI, LIPRF, GLYHGB #### [facility] [employer] [address] [place] [address] [employer]: Brandon Anaya MD Basophils/100 WBC (Bld) 0 % Normal 0-2 [facility] Comment on above: Performed By: #### C DP, CP, LIP, TROPI, LIPRF, GLYHGB #### [address] [address] [employer]: Brandon Anaya MD Eosinophils (Bld) [#/Vol] 10*3/uL Normal 0.00-0.44 [facility] Comment on above: Performed By: #### C DP, CP, LIP, TROPI, LIPRF, GLYHGB #### [facility] [employer] [address] [place] [address] [employer]: Brandon Anaya MD Eosinophils/100 WBC (Bld) 0 % Low 1-4 [facility] Comment on above: Performed By: #### C DP, CP, LIP, TROPI, LIPRF, GLYHGB #### [address] [address] [employer]: Brandon Anaya MD Erythrocyte distribution width (RBC) [Ratio] 14.7 % High 11.8-14.4 [facility] Comment on above: Performed By: #### C DP, CP, LIP, TROPI, LIPRF, GLYHGB #### [facility] [employer] [address] [place] [address] [employer]: Brandon Anaya MD Hematocrit (Bld) [Volume fraction] 40.5 % Normal 36.3-47.1 [facility] Comment on above: Performed By: #### C DP, CP, LIP, TROPI, LIPRF, GLYHGB #### [address] [address] [employer]: Brandon Anaya MD Hemoglobin (Bld) [Mass/Vol] 12.7 g/dL Normal 11.9-15.1 [facility] Comment on above: Performed By: #### C DP, CP, LIP, TROPI, LIPRF, GLYHGB #### [facility] [employer] [address] [place] [address] [employer]: Brandon Anaya MD Immature granulocytes (Bld) [#/Vol] 1 % High 0 [facility] Comment on above: Performed By: #### C DP, CP, LIP, TROPI, LIPRF, GLYHGB #### [facility] [employer] [address] [place] [address] [employer]: Brandon Anaya MD Lymphocytes (Bld) [#/Vol] 1.50 10*3/uL Normal 1.10-3.70 [facility] Comment on above: Performed By: #### C DP, CP, LIP, TROPI, LIPRF, GLYHGB #### [address] [address] [employer]: Brandon Anaya MD Lymphocytes/100 WBC (Bld) 12 % Low 24-43 [facility] Comment on above: Performed By: #### C DP, CP, LIP, TROPI, LIPRF, GLYHGB #### [address] [address] [employer]: Barndon Anaya MD MCH (RBC) [Entitic mass] 29.4 pg Normal 25.2-33.5 [facility] Comment on above: Performed By: #### C DP, CP, LIP, TROPI, LIPRF, GLYHGB #### [address] [address] [employer]: Brandon Anaya MD MCHC (RBC) [Mass/Vol] 31.4 g/dL Normal 28.4-34.8 [facility] Comment on above: Performed By: #### C DP, CP, LIP, TROPI, LIPRF, GLYHGB #### [address] [address] [employer]: Brandon Anaya MD MCV (RBC) [Entitic vol] 93.8 fL Normal 82.6-102.9 [facility] Comment on above: Performed By: #### C DP, CP, LIP, TROPI, LIPRF, GLYHGB #### [address] [address] [employer]: Brandon Anaya MD Monocytes (Bld) [#/Vol] 0.87 10*3/uL Normal 0.10-1.20 [facility] Comment on above: Performed By: #### C DP, CP, LIP, TROPI, LIPRF, GLYHGB #### [address] [address] [employer]: Brandon Anaya MD Monocytes/100 WBC (Bld) 7 % Normal 3-12 [facility] Comment on above: Performed By: #### C DP, CP, LIP, TROPI, LIPRF, GLYHGB #### [address] [address] [employer]: Brandon Anaya MD Neutrophil (Seg) 79 % High 36-65 [facility] Comment on above: Performed By: #### C DP, CP, LIP, TROPI, LIPRF, GLYHGB #### [address] [address] [employer]: Brandon Anaya MD NRBC Automated 0.0 per 100 WBC Normal 0.0 [facility] Comment on above: Performed By: #### C DP, CP, LIP, TROPI, LIPRF, GLYHGB #### [address] [address] [employer]: Brandon Anaya MD Platelet mean volume (Bld) [Entitic vol] 10.7 fL Normal 8.1-13.5 [facility] Comment on above: Performed By: #### C DP, CP, LIP, TROPI, LIPRF, GLYHGB #### [address] [address] [employer]: Brandon Anaya MD Platelets (Bld) [#/Vol] 196 10*3/uL Normal 138-453 [facility] Comment on above: Performed By: #### C DP, CP, LIP, TROPI, LIPRF, GLYHGB #### [address] [address] [employer]: Brandon Anaya MD RBC (Bld) [#/Vol] 4.32 10*6/uL Normal 3.95-5.11 [facility] Comment on above: Performed By: #### C DP, CP, LIP, TROPI, LIPRF, GLYHGB #### [address] [address] [employer]: Brandon Anaya MD RBC morphology finding Nom (Bld) ANISOCYTOSIS PRESENT Normal [facility] Comment on above: Performed By: #### C DP, CP, LIP, TROPI, LIPRF, GLYHGB #### [address] [address] [employer]: Brandon Anaya MD WBC (Bld) [#/Vol] 12.2 10*3/uL High 3.5-11.3 [facility] Comment on above: Performed By: #### C DP, CP, LIP, TROPI, LIPRF, GLYHGB #### [address] [address] [employer]: Brandon Anaya MD Auto Diff Performed NOT REPORTED Normal [facility] Comment on above: Performed By: #### C DP, CP, LIP, TROPI, LIPRF, GLYHGB #### [address] [address] [employer]: Brandon Anaya MD Platelets (Bld) [#/Vol] NOT REPORTED Normal [facility] Comment on above: Performed By: #### C DP, CP, LIP, TROPI, LIPRF, GLYHGB #### [address] [address] [employer]: Brandon Anaya MD WBC Morphology NOT REPORTED Normal [facility] Comment on above: Performed By: #### C DP, CP, LIP, TROPI, LIPRF, GLYHGB #### [facility] [employer] [address] [place] [address] [employer]: Brandon Anaya MD Magnesiumon 10-12-2019 Magnesium [Mass/Vol] 2.2 mg/dL Normal 1.6-2.6 [facility] Comment on above: Performed By: #### C DP, CP, LIP, TROPI, LIPRF, GLYHGB #### [facility] [address] [place] [address] [employer] Staff: Brandon Anaya MD Magnesium [Mass/Vol] 2.2 mg/dL 1.6 - 2 .6 mg/dL [place] POC Glucose Fingerstickon Glucose [Mass/Vol] 117 mg/dL High 65 - 105 mg/dL [place] Interpretation and review of laboratory results Abnormal [place] Glucose [Mass/Vol] 115 mg/dL High 65 - 105 mg/dL [place] Interpretation and review of laboratory results Abnormal [place] Glucose [Mass/Vol] 123 mg/dL High 65 - 105 mg/dL [place] Interpretation and review of laboratory results Abnormal [place] Glucose [Mass/Vol] 117 mg/dL High 65 - 105 mg/dL [place] Interpretation and review of laboratory results Abnormal [place] URINALYSIS WITH MICROSCOPICo n 10-12-2019 Amorphous, UA NOT REPORTED None [place] Bacteria, UA NOT REPORTED None [place] Bilirubin Urine Negative NEGATIVE [place] Casts UA 0 TO 2 HYALINE Refer ence range defined for non-centrifuged specimen. [place] Color, UA YELLOW YELLOW [place] Crystals, UA NOT REPORTED None /HPF [place] Epithelial Cells UA 2 TO 5 [place] Glucose, Ur Negative NEGATIVE [place] Interpretation and review of laboratory results Abnormal [place] Ketones Ql (U) SMALL Abnormal NEGATIVE [place] Leukocyte esterase Test strip Ql (U) Negative NEGATIVE [place] Mucus, UA NOT REPORTED None [place] Nitrite, Urine Negative NEGATIVE [place] Other Observations UA NOT REPORTED NOT REQ. M [place] pH, UA 8.5 High [place] Protein (U) [Mass/Vol] Negative NEGATIVE [place] RBC (U) [#/Vol] TOO NUMEROUS TO COUNT [place] Comment on above: Reference range defi nya for non-centrifuged specimen. Renal Epithelial, UA NOT REPORTED 0 /HPF [place] Specific [place], UA 1.011 [place], [place] Trichomonas, UA NOT REPORTED None [place] Turbidity UA TURBID Abnormal CLEAR [place] Urine Hgb Negative NEGATIVE [place] Urobilinogen, Urine Normal Normal [place] WBC, UA 0 TO 2 [place] Yeast, UA NOT REPORTED None [place] Urinalysis w/ Microon 2019 ----- Normal [facility] Comment on above: Performed By: #### C DP, CP, LIP, TROPI, LIPRF, GLYHGB #### [facility] [address] [place] [address] [employer] Staff: Brandon Anaya MD Acetoacetic Acid,Ur SMALL Abnormal NEG [facility] Comment on above: Performed By: #### C DP, CP, LIP, TROPI, LIPRF, GLYHGB #### [facility] [address] [place] [address] [employer]: Brandon Anaya MD Bilirubin, SemiQt,Ur Negative Normal NEG [facility] Comment on above: Performed By: #### C DP, CP, LIP, TROPI, LIPRF, GLYHGB #### [facility] [address] [place] [address] [employer]: Brandon Anaya MD Casts LM.LPF (Urine sed) [#/Area] 0 TO 2 HYALINE Normal 0-8 [facility] Comment on above: Result Comment: Refe rence range defined for non-centrifuged specimen. Performed By: #### C DP, CP, LIP, TROPI, LIPRF, GLYHGB #### [address] [address] [employer]: Brandon Anaya MD Color (U) YELLOW Normal YEL [facility] Comment on above: Performed By: #### C DP, CP, LIP, TROPI, LIPRF, GLYHGB #### [address] [address] [employer]: Brandon Anaya MD Epithelial cells LM.HPF (Urine sed) [#/Area] 2 TO 5 Normal 0-5 [facility] Comment on above: Performed By: #### C DP, CP, LIP, TROPI, LIPRF, GLYHGB #### [address] [address] [employer]: Brandon Anaya MD Glucose Ql (U) Negative Normal NEG [facility] Comment on above: Performed By: #### C DP, CP, LIP, TROPI, LIPRF, GLYHGB #### [address] [address] [employer]: Brandon Anaya MD Hemoglobin, Ur Negative Normal NEG [facility] Comment on above: Performed By: #### C DP, CP, LIP, TROPI, LIPRF, GLYHGB #### [address] [address] [employer]: Brandon Anaya MD Leukocyte esterase Test strip Ql (U) Negative Normal NEG [facility] Comment on above: Performed By: #### C DP, CP, LIP, TROPI, LIPRF, GLYHGB #### [facility] [address] [place] [address] [employer]: Brandon Anaya MD Nitrite,Ur Negative Normal NEG [facility] Comment on above: Performed By: #### C DP, CP, LIP, TROPI, LIPRF, GLYHGB #### [facility] [address] [place] [address] [employer]: Brandon Anaya MD pH (U) 8.5 [pH] High 5.0-8.0 [facility] Comment on above: Performed By: #### C DP, CP, LIP, TROPI, LIPRF, GLYHGB #### [address] [address] [employer]: Brandon Anaya MD Protein Ql (U) Negative Normal NEG [facility] Comment on above: Performed By: #### C DP, CP, LIP, TROPI, LIPRF, GLYHGB #### [address] [address] [employer]: Brandon Anaya MD RBC (U) [#/Vol] TOO NUMEROUS TO COUNT Normal 0-4 [facility] Comment on above: Result Comment: Refe rence range defined for non-centrifuged specimen. Performed By: #### C DP, CP, LIP, TROPI, LIPRF, GLYHGB #### [address] [address] [employer]: Brandon Anaya MD Specific gravity (U) [Rel density] 1.011 Normal 1.005-1.030 [facility] Comment on above: Performed By: #### C DP, CP, LIP, TROPI, LIPRF, GLYHGB #### [facility] [address] [place] [address] [employer]: Brandon Anaya MD Turbidity TURBID Abnormal CLEAR [facility] Comment on above: Performed By: #### C DP, CP, LIP, TROPI, LIPRF, GLYHGB #### [facility] [address] [place] [address] [employer]: Brandon Anaya MD Urobilinogen,Ur Normal Normal NORM [facility] Comment on above: Performed By: #### C DP, CP, LIP, TROPI, LIPRF, GLYHGB #### [facility] [address] [place] [address] [employer]: Brandon Anaya MD WBC (U) [#/Vol] 0 TO 2 Normal 0-5 [facility] Comment on above: Performed By: #### C DP, CP, LIP, TROPI, LIPRF, GLYHGB #### [facility] [address] [place] [address] [employer]: Brandon Anaya MD Amorphous sediment LM Ql (Urine sed) NOT REPORTED Normal [facility] Comment on above: Performed By: #### C DP, CP, LIP, TROPI, LIPRF, GLYHGB #### [address] [address] [employer]: Brandon Anaya MD Bacteria LM.HPF (Urine sed) [#/Area] NOT REPORTED Normal NONE [facility] Comment on above: Performed By: #### C DP, CP, LIP, TROPI, LIPRF, GLYHGB #### [facility] [address] [place] [address] [employer]: Brandon Anaya MD Crystals LM Nom (Urine sed) NOT REPORTED Normal [facility] Comment on above: Performed By: #### C DP, CP, LIP, TROPI, LIPRF, GLYHGB #### [facility] [address] [place] [address] [employer]: Brandon Anaya MD Epithelial, Renal NOT REPORTED Normal 0 [facility] Comment on above: Performed By: #### C DP, CP, LIP, TROPI, LIPRF, GLYHGB #### [facility] [address] [place] [address] [employer]: Brandon Anaya MD Mucus Strands NOT REPORTED Normal NONE [facility] Comment on above: Performed By: #### C DP, CP, LIP, TROPI, LIPRF, GLYHGB #### [facility] [address] [place] [address] [employer]: Brandon Anaya MD Other Observations NOT REPORTED Normal NREQ [facility] Comment on above: Performed By: #### C DP, CP, LIP, TROPI, LIPRF, GLYHGB #### [facility] [place] [address] [employer]: Brandon Anaya MD Trichomonas NOT REPORTED Normal NONE [facility] Comment on above: Performed By: #### C DP, CP, LIP, TROPI, LIPRF, GLYHGB #### [facility] [address] [place] [address] [employer]: Brandon Anaya MD Yeast LM Ql (Urine sed) NOT REPORTED Normal [facility] Comment on above: Performed By: #### C DP, CP, LIP, TROPI, LIPRF, GLYHGB #### [facility] [place] [address] [employer]: Brandon Anaya MD RENAL ARTERIAL DUPLEX COM PLETEon 10-12-2019 [facility] Vascular Renal Procedure Patient Name ALEYDA Date of Study 10/12/2019 ZACHARY Date of 1945 Gender Female Age 74 year(s) Race Room Number 2015 Corporate ID [id number] # Patient Acct [id number] # MR # [id number] Actuarial Intern Celena Juarez, JACEK, RDMS Interpreting Jamison Galo Physician Referring Referring Physician DENYS MORRIS MD Nurse Practitioner Procedure Type of Study: Abdominal: Renal, Renal Artery Scan Bilateral. Patient Status:In Patient. Conclusions Summary Abdominal aortic aneurysm measuring 3.5 cm was noted. 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 Signature Findings: Right Impression: Left Impression: Renal / Aortic Ratio abnormal Renal / Aortic Ratio within (>3.5cm/s). normal limits (<3.5cm/s). Calcification and elevated velocities Good color flow renal parenchyma. origin of right renal artery. Kidney length is normal. Good color flow renal parenchyma. Renal vein appears patent. Kidney length is normal. Renal vein appears patent. Risk Factors History + +----+----- ---+ !Diagnosis !Date!Comments! + +----+----- ---+ !Peripheral vascular disease->Aortic aneurysm ! !3.5 cm ! + +----+----- ---+ - The patient's risk factor(s) include: dyslipidemia and arterial hypertension. Velocities are measured in cm/s ; Diameters are measured in cm Abdominal Aortic Flow + ---------+----+---+----- -------+ ---+ !Location !PSV !EDV!AP Diam !Trans Diam ! + ---------+----+---+----- -------+ ---+ !Aorta Supra Renal !68.8! ! ! ! + ---------+----+---+----- -------+ ---+ Renal Duplex Measurements + ---------++-----+----+-- --+----++---+----+----+- ---+ !Renal Artery A !!Right! !Left! !! ! ! ! ! + ---------++-----+----+-- --+----++---+----+----+- ---+ !Location !!PSV !EDV !RI !RAR !!PSV!EDV !RI !RAR ! + ---------++-----+----+-- --+----++---+----+----+- ---+ !Ostial Renal !!332 !58.5!0.82!4.83!!199!39. 3!0.8 !2.89! + ---------++-----+----+-- --+----++---+----+----+- ---+ !Prox Renal !!200 !23.1!0.88!2.91!!173!35. 6!0.79!2.51! + ---------++-----+----+-- --+----++---+----+----+- ---+ !Mid Renal !!179 !35.1!0.8 !2.6 !!166!30.7!0.82!2.41! + ---------++-----+----+-- --+----++---+----+----+- ---+ !Dist Renal !!116 !22.4!0.81!1.69!!111!24. 6!0.78!1.61! + ---------++-----+----+-- --+----++---+----+----+- ---+ Right Miscellaneous Measurements - The average kidney length is 10.75 cm. Left Miscellaneous Measurements - The average kidney length is 10.75 cm. [facility] [place], Mhpn Incoming Cardio Results From [facility] - 10/12/2019 7:54 PM EDT [facility] Vascular Renal Procedure Patient Name ALEYDA Date of Study 10/12/2019 ZACHARY Date of 1945 Gender Female Age 74 year(s) Race Room Number 2015 Corporate ID [id number] # Patient Acct [id number] # MR # [id number] Actuarial Intern Celena Juarez RVT, RDMS Interpreting Jamison Galo Physician Referring Referring Physician DENYS MORRIS MD Nurse Practitioner Procedure Type of Study: Abdominal: Renal, Renal Artery Scan Bilateral. Patient Status:In Patient. Conclusions Summary Abdominal aortic aneurysm measuring 3.5 cm was noted. 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 Signature Findings: Right Impression: Left Impression: Renal / Aortic Ratio abnormal Renal / Aortic Ratio within (>3.5cm/s). normal limits (<3.5cm/s). Calcification and elevated velocities Good color flow renal parenchyma. origin of right renal artery. Kidney length is normal. Good color flow renal parenchyma. Renal vein appears patent. Kidney length is normal. Renal vein appears patent. Risk Factors History + +----+----- --- + !Diagnosis !Date!Comments! + +----+----- --- + !Peripheral vascular disease->Aortic aneurysm ! !3.5 cm ! + +----+----- --- + - The patient's risk factor(s) include: dyslipidemia and arterial hypertension. Velocities are measured in cm/s ; Diameters are measured in cm Abdominal Aortic Flow + ---------+----+---+----- -------+ --- + !Location !PSV !EDV!AP Diam !Trans Diam ! + ---------+----+---+----- -------+ --- + !Aorta Supra Renal !68.8! ! ! ! + ---------+----+---+----- -------+ --- + Renal Duplex Measurements + ---------++-----+----+-- --+----++---+----+----+- --- + !Renal Artery A !!Right! !Left! !! ! ! ! ! + ---------++-----+----+-- --+----++---+----+----+- --- + !Location !!PSV !EDV !RI !RAR !!PSV!EDV !RI !RAR ! + ---------++-----+----+-- --+----++---+----+----+- --- + !Ostial Renal !!332 !58.5!0.82!4.83!!199!39. 3!0.8 !2.89! + ---------++-----+----+-- --+----++---+----+----+- --- + !Prox Renal !!200 !23.1!0.88!2.91!!173!35. 6!0.79!2.51! + ---------++-----+----+-- --+----++---+----+----+- --- + !Mid Renal !!179 !35.1!0.8 !2.6 !!166!30.7!0.82!2.41! + ---------++-----+----+-- --+----++---+----+----+- --- + !Dist Renal !!116 !22.4!0.81!1.69!!111!24. 6!0.78!1.61! + ---------++-----+----+-- --+----++---+----+----+- --- + Right Miscellaneous Measurements - The average kidney length is 10.75 cm. Left Miscellaneous Measurements - The average kidney length is 10.75 cm. [facility] [place] XR CHEST PORTABLEon 10-12-19 20 XR CHEST PORTABLE EXAMINATION: ONE XRAY VIEW OF THE CHEST 10/11/2019 10:45 pm COMPARISON: 06/27/2017 HISTORY: ORDERING SYSTEM PROVIDED HISTORY: evaluate TECHNOLOGIST PROVIDED HISTORY: evaluate Reason for Exam: Upright portable Acuity: Unknown Type of Exam: Unknown FINDINGS: Cardiomediastinal silhouette is unchanged in size. Aortic atherosclerosis. No pulmonary consolidation, pleural effusion, or pneumothorax. No acute osseous abnormality. IMPRESSION: No acute cardiopulmonary abnormality. Interpreted by: Argentina Guzmán MD Signed by: Argentina Guzmán MD 10/11/19 Final result Normal [facility] Basic Metab w/rfx MGon 10-10 (cont.) Normal [facility] Comment on above: Result Comment: Aver age GFR for 70 or more years old: 75 mL/min/1.73sq m Chronic Kidney Disease: <60 mL/min/1.73sq m Kidney failure: <15 mL/min/1.73sq m eGFR calculated using average adult body mass. Additional eGFR calculator available at: http://www.[employer]/multiple_crcl_2012.htm Performed By: #### C DP, CP, LIP, TROPI, LIPRF, GLYHGB #### [facility] [address] [place] [address] [employer]: Brandon Anaya MD Anion gap [Moles/Vol] 15 mmol/L Normal - [facility] Comment on above: Performed By: #### C DP, CP, LIP, TROPI, LIPRF, GLYHGB #### [email or web address] [address] [place] [address] [employer] Staff: Brandon Anaya MD Calcium [Mass/Vol] 9.2 mg/dL Normal 8.6-10.4 [facility] Comment on above: Performed By: #### C DP, CP, LIP, TROPI, LIPRF, GLYHGB #### [address] [address] [employer]: Brandon Anaya MD Chloride [Moles/Vol] 96 mmol/L Low 98-107 [facility] Comment on above: Performed By: #### C DP, CP, LIP, TROPI, LIPRF, GLYHGB #### [address] [address] [employer]: Brandon Anaya MD CO2 [Moles/Vol] 24 mmol/L Normal 20-31 [facility] Comment on above: Performed By: #### C DP, CP, LIP, TROPI, LIPRF, GLYHGB #### [address] [address] [employer]: Brandon Anaya MD Creatinine [Mass/Vol] 0.55 mg/dL Normal 0.50-0.90 [facility] Comment on above: Performed By: #### C DP, CP, LIP, TROPI, LIPRF, GLYHGB #### [address] [address] [employer]: Brandon Anaya MD GFR, Amer >60 Normal >60 [facility] Comment on above: Performed By: #### C DP, CP, LIP, TROPI, LIPRF, GLYHGB #### [address] [address] [employer]: Brandon Anaya MD GFR,non Amer >60 Normal >60 [facility] Comment on above: Performed By: #### C DP, CP, LIP, TROPI, LIPRF, GLYHGB #### [address] [address] [employer]: Brandon Anaya MD Glucose [Mass/Vol] 146 mg/dL High 70-99 [facility] Comment on above: Performed By: #### C DP, CP, LIP, TROPI, LIPRF, GLYHGB #### [address] [address] [employer]: Brandon Anaya MD Potassium [Moles/Vol] 3.6 mmol/L Low 3.7-5.3 [facility] Comment on above: Performed By: #### C DP, CP, LIP, TROPI, LIPRF, GLYHGB #### [address] [address] [employer]: Brandon Anaya MD Sodium [Moles/Vol] 135 mmol/L Normal 135-144 [facility] Comment on above: Performed By: #### C DP, CP, LIP, TROPI, LIPRF, GLYHGB #### [address] [address] [employer]: Brandon Anaya MD Urea nitrogen [Mass/Vol] 13 mg/dL Normal 8-23 [facility] Comment on above: Performed By: #### C DP, CP, LIP, TROPI, LIPRF, GLYHGB #### [address] [address] [employer]: Brandon Anaya MD BUN/CRE Ratio NOT REPORTED Normal - [facility] Comment on above: Performed By: #### C DP, CP, LIP, TROPI, LIPRF, GLYHGB #### [address] [address] [employer]: Brandon Anaya MD Staging: NOT REPORTED Normal [facility] Comment on above: Performed By: #### C DP, CP, LIP, TROPI, LIPRF, GLYHGB #### [address] [address] [employer]: Brandon Anaya MD Basic Metabolic Panel w/ Ref kervin to MGon 10-11-2019 Anion gap [Moles/Vol] 15 mmol/L 9 - 17 mmol/L [place] Bun/Cre Ratio NOT REPORTED [place] Calcium [Mass/Vol] 9.2 mg/dL 8.6 - 10. 4 mg/dL [place] Chloride [Moles/Vol] 96 mmol/L Low 98 - 10 7 mmol/L [place] CO2 [Moles/Vol] 24 mmol/L 20 - 31 mmol/L [place] Creatinine [Mass/Vol] 0.55 mg/dL 0.5 - 0.9 mg/dL [place] GFR >60 >60 mL/min [place] GFR Non- >60 >60 mL/min [place] GFR/1.73 sq M predicted among non-blacks MDRD (S/P/Bld) [Vol rate/Area] NOT REPORTED [place] GFR/1.73 sq M predicted among non-blacks MDRD (S/P/Bld) [Vol rate/Area] [place] Comment on above: Average GFR for 70 o r more years old: 75 mL/min/1.73sq m Chronic Kidney Disease: <60 mL/min/1.73sq m Kidney failure: <15 mL/min/1.73sq m eGFR calculated using average adult body mass. Additional eGFR calculator available at: http://www.[employer]/multiple_crcl_2012.htm Glucose [Mass/Vol] 146 mg/dL High 70 - 99 mg/dL [place] Interpretation and review of laboratory results Abnormal [place] Potassium [Moles/Vol] 3.6 mmol/L Low 3.7 - 5.3 mmol/L [place] Sodium [Moles/Vol] 135 mmol/L 135 - 144 mmol/L [place] Urea nitrogen [Mass/Vol] 13 mg/dL 8 - 23 mg/dL [place] CBC auto differentialon 09-24 Basophils (Bld) [#/Vol] 0.03 10*3/uL [place] Basophils/100 WBC (Bld) 0 % 0 - 2 % [place] Differential Type NOT REPORTED [place] Eosinophils (Bld) [#/Vol] 10*3/uL [place] Eosinophils/100 WBC (Bld) 0 % Low 1 - 4 % [place] Erythrocyte distribution width (RBC) [Ratio] 14.3 % 11.8 - 14.4 % [place] Hematocrit (Bld) [Volume fraction] 43.6 % 36.3 - 47.1 % [place] Hemoglobin (Bld) [Mass/Vol] 13.7 g/dL 11.9 - 15.1 g/dL [place] Immature granulocytes (Bld) [#/Vol] 1 % High 0 [place] Immature granulocytes (Bld) [#/Vol] 0.07 10*3/uL [place] Interpretation and review of laboratory results Abnormal [place] Lymphocytes (Bld) [#/Vol] 0.92 10*3/uL Low [place] Lymphocytes/100 WBC (Bld) 14 % Low 24 - 43 % [place] MCH (RBC) [Entitic mass] 29.1 pg 25.2 - 33.5 pg [place] MCHC (RBC) [Mass/Vol] 31.4 g/dL 28.4 - 34.8 g/dL [place] MCV (RBC) [Entitic vol] 92.6 fL 82.6 - 102.9 fL [place] Monocytes (Bld) [#/Vol] 0.07 10*3/uL Low [place] Monocytes/100 WBC (Bld) 1 % Low 3 - 12 % [place] Platelet mean volume (Bld) [Entitic vol] 10.6 fL 8.1 - 13.5 fL [place] Platelets (Bld) [#/Vol] NOT REPORTED [place] Platelets (Bld) [#/Vol] 196 10*3/uL [place] RBC (Bld) [#/Vol] 4.71 10*6/uL 3.95 - 5.1 1 m/uL [place] RBC morphology finding Nom (Bld) NOT REPORTED [place] Segmented neutrophils/100 WBC (Bld) 84 % High 36 - 65 % [place] Segs Absolute 5.67 [place] WBC (Bld) [#/Vol] 0.0 10*3/uL 0.0 per 10 0 WBC [place] WBC (Bld) [#/Vol] 6.8 10*3/uL [place] WBC Morphology NOT REPORTED [place] CBC with Diffon 10-11-2019 Abs. Basophil 0.03 k/uL Normal 0.00-0.20 [facility] Comment on above: Performed By: #### C DP, CP, LIP, TROPI, LIPRF, GLYHGB #### [facility] [employer] [facility] [address] [place] [address] [employer]: Brandon Anaya MD Abs.Imm.Granulocyte 0.07 k/uL Normal 0.00-0.30 [facility] Comment on above: Performed By: #### C DP, CP, LIP, TROPI, LIPRF, GLYHGB #### [facility] [employer] [address] [place] [address] [employer]: Brandon Anaya MD Abs.Neutrophil (Seg) 5.67 k/uL Normal 1.50-8.10 [facility] Comment on above: Performed By: #### C DP, CP, LIP, TROPI, LIPRF, GLYHGB #### [facility] [employer] [address] [place] [address] [employer]: Brandon Anaya MD Basophils/100 WBC (Bld) 0 % Normal 0-2 [facility] Comment on above: Performed By: #### C DP, CP, LIP, TROPI, LIPRF, GLYHGB #### [facility] [employer] [address] [place] [id number] [employer]: Brandon Anaya MD Eosinophils (Bld) [#/Vol] 10*3/uL Normal 0.00-0.44 [facility] Comment on above: Performed By: #### C DP, CP, LIP, TROPI, LIPRF, GLYHGB #### [facility] [employer] [address] [place] [address] [employer]: Brandon Anaya MD Eosinophils/100 WBC (Bld) 0 % Low 1-4 [facility] Comment on above: Performed By: #### C DP, CP, LIP, TROPI, LIPRF, GLYHGB #### [place] [address] [employer]: Brandon Anaya MD Erythrocyte distribution width (RBC) [Ratio] 14.3 % Normal 11.8-14.4 [facility] Comment on above: Performed By: #### C DP, CP, LIP, TROPI, LIPRF, GLYHGB #### [place] [address] [employer]: Brandon Anaya MD Hematocrit (Bld) [Volume fraction] 43.6 % Normal 36.3-47.1 [facility] Comment on above: Performed By: #### C DP, CP, LIP, TROPI, LIPRF, GLYHGB #### [address] [address] [employer]: Brandon Anaya MD Hemoglobin (Bld) [Mass/Vol] 13.7 g/dL Normal 11.9-15.1 [facility] Comment on above: Performed By: #### C DP, CP, LIP, TROPI, LIPRF, GLYHGB #### [facility] [employer] [address] [place] [address] [employer]: Brandon Anaya MD Immature granulocytes (Bld) [#/Vol] 1 % High 0 [facility] Comment on above: Performed By: #### C DP, CP, LIP, TROPI, LIPRF, GLYHGB #### [address] [address] [employer]: Brandon Anaya MD Lymphocytes (Bld) [#/Vol] 0.92 10*3/uL Low 1.10-3.70 [facility] Comment on above: Performed By: #### C DP, CP, LIP, TROPI, LIPRF, GLYHGB #### [address] [address] [employer]: Brandon Anaya MD Lymphocytes/100 WBC (Bld) 14 % Low 24-43 [facility] Comment on above: Performed By: #### C DP, CP, LIP, TROPI, LIPRF, GLYHGB #### [address] [address] [employer]: Brandon Anaya MD MCH (RBC) [Entitic mass] 29.1 pg Normal 25.2-33.5 [facility] Comment on above: Performed By: #### C DP, CP, LIP, TROPI, LIPRF, GLYHGB #### [place] [address] [employer]: Brandon Anaya MD MCHC (RBC) [Mass/Vol] 31.4 g/dL Normal 28.4-34.8 [facility] Comment on above: Performed By: #### C DP, CP, LIP, TROPI, LIPRF, GLYHGB #### [address] [address] [employer]: Brandon Anaya MD MCV (RBC) [Entitic vol] 92.6 fL Normal 82.6-102.9 [facility] Comment on above: Performed By: #### C DP, CP, LIP, TROPI, LIPRF, GLYHGB #### [address] [address] [employer]: Brandon Anaya MD Monocytes (Bld) [#/Vol] 0.07 10*3/uL Low 0.10-1.20 [facility] Comment on above: Performed By: #### C DP, CP, LIP, TROPI, LIPRF, GLYHGB #### [address] [address] [employer]: Brandon Anaya MD Monocytes/100 WBC (Bld) 1 % Low 3-12 [facility] Comment on above: Performed By: #### C DP, CP, LIP, TROPI, LIPRF, GLYHGB #### [place] [address] [employer]: Brandon Anaya MD Neutrophil (Seg) 84 % High 36-65 [facility] Comment on above: Performed By: #### C DP, CP, LIP, TROPI, LIPRF, GLYHGB #### [place] [address] [employer]: Brandon Anaya MD NRBC Automated 0.0 per 100 WBC Normal 0.0 [facility] Comment on above: Performed By: #### C DP, CP, LIP, TROPI, LIPRF, GLYHGB #### [place] [address] [employer]: Brandon Anaya MD Platelet mean volume (Bld) [Entitic vol] 10.6 fL Normal 8.1-13.5 [facility] Comment on above: Performed By: #### C DP, CP, LIP, TROPI, LIPRF, GLYHGB #### [place] [address] [employer]: Brandon Anaya MD Platelets (Bld) [#/Vol] 196 10*3/uL Normal 138-453 [facility] Comment on above: Performed By: #### C DP, CP, LIP, TROPI, LIPRF, GLYHGB #### [address] [address] [employer]: Brandon Anaya MD RBC (Bld) [#/Vol] 4.71 10*6/uL Normal 3.95-5.11 [facility] Comment on above: Performed By: #### C DP, CP, LIP, TROPI, LIPRF, GLYHGB #### [address] [address] [employer]: Brandon Anaya MD WBC (Bld) [#/Vol] 6.8 10*3/uL Normal 3.5-11.3 [facility] Comment on above: Performed By: #### C DP, CP, LIP, TROPI, LIPRF, GLYHGB #### [address] [address] [employer]: Brandon Anaya MD Auto Diff Performed NOT REPORTED Normal [facility] Comment on above: Performed By: #### C DP, CP, LIP, TROPI, LIPRF, GLYHGB #### [address] [address] [employer]: Brandon Anaya MD Platelets (Bld) [#/Vol] NOT REPORTED Normal [facility] Comment on above: Performed By: #### C DP, CP, LIP, TROPI, LIPRF, GLYHGB #### [address] [address] [employer]: Brandon Anaya MD RBC morphology finding Nom (Bld) NOT REPORTED Normal [facility] Comment on above: Performed By: #### C DP, CP, LIP, TROPI, LIPRF, GLYHGB #### [address] [address] [employer]: Brandon Anaya MD WBC Morphology NOT REPORTED Normal [facility] Comment on above: Performed By: #### C DP, CP, LIP, TROPI, LIPRF, GLYHGB #### [email or web address] [address] [id number] [employer]: Brandon Anaya MD MRI BRAIN W WO CONTRASTon MRI BRAIN W WO CONTRAST EXAMINATION: MRI OF THE BRAIN WITHOUT AND WITH CONTRAST 10/11/2019 1:44 pm TECHNIQUE: Multiplanar multisequence MRI of the head/brain was performed without and with the administration of intravenous contrast. COMPARISON: None. HISTORY: ORDERING SYSTEM PROVIDED HISTORY: new onset headache with associated photophobia, nausea, vomiting, dizziness TECHNOLOGIST PROVIDED HISTORY: new onset headache with associated photophobia, nausea, vomiting, dizziness FINDINGS: INTRACRANIAL STRUCTURES/VENTRICLES: There is no acute infarct. No bleed or shift is identified. There is a small enhancing extra-axial nodule over the right frontal convexity measuring 5.8 mm in diameter on image number 7 of series 11, most consistent with a meningioma. There is volume loss with mild chronic white matter microvascular ischemic disease. The sellar/suprasellar regions appear unremarkable. The normal signal voids within the major intracranial vessels appear maintained. ORBITS: The visualized portion of the orbits demonstrate no acute abnormality. SINUSES: The visualized paranasal sinuses and mastoid air cells are well aerated. BONES/SOFT TISSUES: The bone marrow signal intensity appears normal. The soft tissues demonstrate no acute abnormality. IMPRESSION: Volume loss with chronic white matter microvascular ischemic change. Small meningioma over the right frontal lobe. Interpreted by: Chaitanya Sawyer MD Signed by: Chaitanya Sawyer MD 10/11/19 Final result Normal [facility] [place], [facility] Incoming Radiant Results From [facility] - 10/11/2019 3:07 PM EDT EXAMINATION: MRI OF THE BRAIN WITHOUT AND WITH CONTRAST 10/11/2019 1:44 pm TECHNIQUE: Multiplanar multisequence MRI of the head/brain was performed without and with the administration of intravenous contrast. COMPARISON: None. HISTORY: ORDERING SYSTEM PROVIDED HISTORY: new onset headache with associated photophobia, nausea, vomiting, dizziness TECHNOLOGIST PROVIDED HISTORY: new onset headache with associated photophobia, nausea, vomiting, dizziness FINDINGS: INTRACRANIAL STRUCTURES/VENTRICLES: There is no acute infarct. No bleed or shift is identified. There is a small enhancing extra-axial nodule over the right frontal convexity measuring 5.8 mm in diameter on image number 7 of series 11, most consistent with a meningioma. There is volume loss with mild chronic white matter microvascular ischemic disease. The sellar/suprasellar regions appear unremarkable. The normal signal voids within the major intracranial vessels appear maintained. ORBITS: The visualized portion of the orbits demonstrate no acute abnormality. SINUSES: The visualized paranasal sinuses and mastoid air cells are well aerated. BONES/SOFT TISSUES: The bone marrow signal intensity appears normal. The soft tissues demonstrate no acute abnormality. IMPRESSION: Volume loss with chronic white matter microvascular ischemic change. Small meningioma over the right frontal lobe. [place], [place] Volume loss with chr onic white matter microvascular ischemic change. Small meningioma over the right frontal lobe. [place] EXAMINATION: MRI OF THE BRAIN WITHOUT AND WITH CONTRAST 10/11/2019 1:44 pm TECHNIQUE: Multiplanar multisequence MRI of the head/brain was performed without and with the administration of intravenous contrast. COMPARISON: None. HISTORY: ORDERING SYSTEM PROVIDED HISTORY: new onset headache with associated photophobia, nausea, vomiting, dizziness TECHNOLOGIST PROVIDED HISTORY: new onset headache with associated photophobia, nausea, vomiting, dizziness FINDINGS: INTRACRANIAL STRUCTURES/VENTRICLES: There is no acute infarct. No bleed or shift is identified. There is a small enhancing extra-axial nodule over the right frontal convexity measuring 5.8 mm in diameter on image number 7 of series 11, most consistent with a meningioma. There is volume loss with mild chronic white matter microvascular ischemic disease. The sellar/suprasellar regions appear unremarkable. The normal signal voids within the major intracranial vessels appear maintained. ORBITS: The visualized portion of the orbits demonstrate no acute abnormality. SINUSES: The visualized paranasal sinuses and mastoid air cells are well aerated. BONES/SOFT TISSUES: The bone marrow signal intensity appears normal. The soft tissues demonstrate no acute abnormality. [facility] [place] POC Glucose Fingerstickon Glucose [Mass/Vol] 121 mg/dL High 65 - 105 mg/dL [place] Interpretation and review of laboratory results Abnormal [place] Glucose [Mass/Vol] 171 mg/dL High 65 - 105 mg/dL [place] Interpretation and review of laboratory results Abnormal [place] Glucose [Mass/Vol] 127 mg/dL High 65 - 105 mg/dL [place] Interpretation and review of laboratory results Abnormal [place] Glucose [Mass/Vol] 145 mg/dL High 65 - 105 mg/dL [place] Interpretation and review of laboratory results Abnormal [place] XR CHEST PORTABLEon 10-11-19 EXAMINATION: ONE XRA Y VIEW OF THE CHEST 10/11/2019 10:45 pm COMPARISON: 06/27/2017 HISTORY: ORDERING SYSTEM PROVIDED HISTORY: evaluate TECHNOLOGIST PROVIDED HISTORY: evaluate Reason for Exam: Upright portable Acuity: Unknown Type of Exam: Unknown FINDINGS: Cardiomediastinal silhouette is unchanged in size. Aortic atherosclerosis. No pulmonary consolidation, pleural effusion, or pneumothorax. No acute osseous abnormality. [place], [place], [place] Incoming Radiant Results From [facility] - 10/11/2019 11:49 PM EDT EXAMINATION: ONE XRAY VIEW OF THE CHEST 10/11/2019 10:45 pm COMPARISON: 06/27/2017 HISTORY: ORDERING SYSTEM PROVIDED HISTORY: evaluate TECHNOLOGIST PROVIDED HISTORY: evaluate Reason for Exam: Upright portable Acuity: Unknown Type of Exam: Unknown FINDINGS: Cardiomediastinal silhouette is unchanged in size. Aortic atherosclerosis. No pulmonary consolidation, pleural effusion, or pneumothorax. No acute osseous abnormality. IMPRESSION: No acute cardiopulmonary abnormality. [place] No acute cardiopulmo nary abnormality. [place] Basic Metab w/rfx MGon 10-09 (cont.) Normal [facility] Comment on above: Result Comment: Aver age GFR for 70 or more years old: 75 mL/min/1.73sq m Chronic Kidney Disease: <60 mL/min/1.73sq m Kidney failure: <15 mL/min/1.73sq m eGFR calculated using average adult body mass. Additional eGFR calculator available at: http://www.[employer]/multiple_crcl_2011.htm Performed By: #### C DP, CP, LIP, TROPI, LIPRF, GLYHGB #### [facility] [employer] [facility] [place] [address] [employer]: Brandon Anaya MD Anion gap [Moles/Vol] 10 mmol/L Normal 9-17 [facility] Comment on above: Performed By: #### C DP, CP, LIP, TROPI, LIPRF, GLYHGB #### [facility] [employer] [address] [place] [address] [employer]: Brandon Anaya MD Calcium [Mass/Vol] 9.0 mg/dL Normal 8.6-10.4 [facility] Comment on above: Performed By: #### C DP, CP, LIP, TROPI, LIPRF, GLYHGB #### [facility] [employer] [address] [place] [address] [employer]: Brandon Anaya MD Chloride [Moles/Vol] 97 mmol/L Low 98-107 [facility] Comment on above: Performed By: #### C DP, CP, LIP, TROPI, LIPRF, GLYHGB #### [facility] [employer] [address] [place] [address] [employer]: Brandon Anaya MD CO2 [Moles/Vol] 25 mmol/L Normal 20-31 [facility] Comment on above: Performed By: #### C DP, CP, LIP, TROPI, LIPRF, GLYHGB #### [facility] [employer] [address] [place] [address] [employer]: Brandon Anaya MD Creatinine [Mass/Vol] 0.50 mg/dL Normal 0.50-0.90 [facility] Comment on above: Performed By: #### C DP, CP, LIP, TROPI, LIPRF, GLYHGB #### [facility] [employer] [address] [place] [address] [employer]: Brandon Anaya MD GFR, Amer >60 Normal >60 [facility] Comment on above: Performed By: #### C DP, CP, LIP, TROPI, LIPRF, GLYHGB #### [facility] [employer] [address] [place] [address] [employer]: Brandon Anaya MD GFR,non Amer >60 Normal >60 [facility] Comment on above: Performed By: #### C DP, CP, LIP, TROPI, LIPRF, GLYHGB #### [facility] [employer] [address] [place] [address] [employer]: Brandon Anaya MD Glucose [Mass/Vol] 123 mg/dL High 70-99 [facility] Comment on above: Performed By: #### C DP, CP, LIP, TROPI, LIPRF, GLYHGB #### [address] [address] [employer]: Brandon Anaya MD Potassium [Moles/Vol] 3.5 mmol/L Low 3.7-5.3 [facility] Comment on above: Performed By: #### C DP, CP, LIP, TROPI, LIPRF, GLYHGB #### [address] [address] [employer]: Brandon Anaya MD Sodium [Moles/Vol] 132 mmol/L Low 135-144 [facility] Comment on above: Performed By: #### C DP, CP, LIP, TROPI, LIPRF, GLYHGB #### [address] [address] [employer]: Brandon Anaya MD Urea nitrogen [Mass/Vol] 14 mg/dL Normal 8-23 [facility] Comment on above: Performed By: #### C DP, CP, LIP, TROPI, LIPRF, GLYHGB #### [address] [address] [employer]: Brandon Anaya MD BUN/CRE Ratio NOT REPORTED Normal 9-20 [facility] Comment on above: Performed By: #### C DP, CP, LIP, TROPI, LIPRF, GLYHGB #### [facility] [employer] [address] [place] [address] [employer]: Brandon Anaya MD Staging: NOT REPORTED Normal [facility] Comment on above: Performed By: #### C DP, CP, LIP, TROPI, LIPRF, GLYHGB #### [facility] [employer] [address] [place], [place] [id number] [employer]: Brandon Anaya MD Basic Metabolic Panel w/ Ref kervin to MGon 10-10-2019 Anion gap [Moles/Vol] 10 mmol/L 9 - 17 mmol/L [place] Bun/Cre Ratio NOT REPORTED [place] Calcium [Mass/Vol] 9.0 mg/dL 8.6 - 10. 4 mg/dL [place] Chloride [Moles/Vol] 97 mmol/L Low 98 - 10 7 mmol/L [place] CO2 [Moles/Vol] 25 mmol/L 20 - 31 mmol/L [place] Creatinine [Mass/Vol] 0.5 mg/dL 0.5 - 0.9 mg/dL [place] GFR >60 >60 mL/min [place] GFR Non- >60 >60 mL/min [place] GFR/1.73 sq M predicted among non-blacks MDRD (S/P/Bld) [Vol rate/Area] [place] Comment on above: Average GFR for 70 o r more years old: 75 mL/min/1.73sq m Chronic Kidney Disease: <60 mL/min/1.73sq m Kidney failure: <15 mL/min/1.73sq m eGFR calculated using average adult body mass. Additional eGFR calculator available at: http://www.[employer]/multiple_crcl_2012.htm GFR/1.73 sq M predicted among non-blacks MDRD (S/P/Bld) [Vol rate/Area] NOT REPORTED [place] Glucose [Mass/Vol] 123 mg/dL High 70 - 99 mg/dL [place] Interpretation and review of laboratory results Abnormal [place] Potassium [Moles/Vol] 3.5 mmol/L Low 3.7 - 5.3 mmol/L [place] Sodium [Moles/Vol] 132 mmol/L Low 135 - 144 mmol/L [place] Urea nitrogen [Mass/Vol] 14 mg/dL 8 - 23 mg/dL [place] C-REACTIVE PROTEINon 020 CRP [Mass/Vol] 6.3 mg/L High 0 - 5 mg/L [place] Interpretation and review of laboratory results Abnormal [place] C-Reactive Proteinon 020 CRP [Mass/Vol] 6.3 mg/L High 0.0-5.0 [facility] Comment on above: Performed By: #### C DP, CP, LIP, TROPI, LIPRF, GLYHGB #### [address] [place], [place] [id number] [employer]: Brandon Anaya MD CBC auto differentialon 09-24 Basophils (Bld) [#/Vol] 0.06 10*3/uL [place] Basophils/100 WBC (Bld) 1 % 0 - 2 % [place] Differential Type NOT REPORTED [place] Eosinophils (Bld) [#/Vol] 0.07 10*3/uL [place] Eosinophils/100 WBC (Bld) 1 % 1 - 4 % [place] Erythrocyte distribution width (RBC) [Ratio] 14.5 % High 11.8 - 14.4 % [place] Hematocrit (Bld) [Volume fraction] 42.7 % 36.3 - 47.1 % [place] Hemoglobin (Bld) [Mass/Vol] 13.5 g/dL 11.9 - 15.1 g/dL [place] Immature granulocytes (Bld) [#/Vol] 0.05 10*3/uL [place] Immature granulocytes (Bld) [#/Vol] 1 % High 0 [place] Interpretation and review of laboratory results Abnormal [place] Lymphocytes (Bld) [#/Vol] 1.05 10*3/uL Low [place] Lymphocytes/100 WBC (Bld) 14 % Low 24 - 43 % [place] MCH (RBC) [Entitic mass] 29.8 pg 25.2 - 33.5 pg [place] MCHC (RBC) [Mass/Vol] 31.6 g/dL 28.4 - 34.8 g/dL [place] MCV (RBC) [Entitic vol] 94.3 fL 82.6 - 102.9 fL [place] Monocytes (Bld) [#/Vol] 0.65 10*3/uL [place] Monocytes/100 WBC (Bld) 9 % 3 - 12 % [place] Platelet mean volume (Bld) [Entitic vol] 10.9 fL 8.1 - 13.5 fL [place] Platelets (Bld) [#/Vol] 170 10*3/uL [place] Platelets (Bld) [#/Vol] NOT REPORTED [place] RBC (Bld) [#/Vol] 4.53 10*6/uL 3.95 - 5.1 1 m/uL [place] RBC morphology finding Nom (Bld) ANISOCYTOSIS PRESENT [place] Segmented neutrophils/100 WBC (Bld) 74 % High 36 - 65 % [place] Segs Absolute 5.55 [place] WBC (Bld) [#/Vol] 0.0 10*3/uL 0.0 per 10 0 WBC [place] WBC (Bld) [#/Vol] 7.4 10*3/uL [place] WBC Morphology NOT REPORTED [place] CBC with Diffon 10-10-2019 Abs. Basophil 0.06 k/uL Normal 0.00-0.20 [facility] Comment on above: Performed By: #### C DP, CP, LIP, TROPI, LIPRF, GLYHGB #### [email or web address] [address] [place] [address] [employer]: Brandon Anaya MD Abs.Imm.Granulocyte 0.05 k/uL Normal 0.00-0.30 [facility] Comment on above: Performed By: #### C DP, CP, LIP, TROPI, LIPRF, GLYHGB #### [place] [address] [employer]: Brandon Anaya MD Abs.Neutrophil (Seg) 5.55 k/uL Normal 1.50-8.10 [facility] Comment on above: Performed By: #### C DP, CP, LIP, TROPI, LIPRF, GLYHGB #### [place] [address] [employer]: Brandon Anaya MD Basophils/100 WBC (Bld) 1 % Normal 0-2 [facility] Comment on above: Performed By: #### C DP, CP, LIP, TROPI, LIPRF, GLYHGB #### [place] [address] [employer]: Brandon Anaya MD Eosinophils (Bld) [#/Vol] 0.07 10*3/uL Normal 0.00-0.44 [facility] Comment on above: Performed By: #### C DP, CP, LIP, TROPI, LIPRF, GLYHGB #### [place] [address] [employer]: Brandon Anaya MD Eosinophils/100 WBC (Bld) 1 % Normal 1-4 [facility] Comment on above: Performed By: #### C DP, CP, LIP, TROPI, LIPRF, GLYHGB #### [place] [address] [employer]: Brandon Anaya MD Erythrocyte distribution width (RBC) [Ratio] 14.5 % High 11.8-14.4 [facility] Comment on above: Performed By: #### C DP, CP, LIP, TROPI, LIPRF, GLYHGB #### [address] [address] [employer]: Brandon Anaya MD Hematocrit (Bld) [Volume fraction] 42.7 % Normal 36.3-47.1 [facility] Comment on above: Performed By: #### C DP, CP, LIP, TROPI, LIPRF, GLYHGB #### [address] [address] [employer]: Brandon Anaya MD Hemoglobin (Bld) [Mass/Vol] 13.5 g/dL Normal 11.9-15.1 [facility] Comment on above: Performed By: #### C DP, CP, LIP, TROPI, LIPRF, GLYHGB #### [address] [address] [employer]: Brandon Anaya MD Immature granulocytes (Bld) [#/Vol] 1 % High 0 [facility] Comment on above: Performed By: #### C DP, CP, LIP, TROPI, LIPRF, GLYHGB #### [address] [address] [employer]: Brandon Anaya MD Lymphocytes (Bld) [#/Vol] 1.05 10*3/uL Low 1.10-3.70 [facility] Comment on above: Performed By: #### C DP, CP, LIP, TROPI, LIPRF, GLYHGB #### [address] [address] [employer]: Brandon Anaya MD Lymphocytes/100 WBC (Bld) 14 % Low 24-43 [facility] Comment on above: Performed By: #### C DP, CP, LIP, TROPI, LIPRF, GLYHGB #### [facility] [employer] [address] [place] [address] [employer]: Brandon Anaya MD MCH (RBC) [Entitic mass] 29.8 pg Normal 25.2-33.5 [facility] Comment on above: Performed By: #### C DP, CP, LIP, TROPI, LIPRF, GLYHGB #### [address] [address] [employer]: Brandon Anaya MD MCHC (RBC) [Mass/Vol] 31.6 g/dL Normal 28.4-34.8 [facility] Comment on above: Performed By: #### C DP, CP, LIP, TROPI, LIPRF, GLYHGB #### [address] [address] [employer]: Brandon Anaya MD MCV (RBC) [Entitic vol] 94.3 fL Normal 82.6-102.9 [facility] Comment on above: Performed By: #### C DP, CP, LIP, TROPI, LIPRF, GLYHGB #### [place] [address] [employer]: Brandon Anaya MD Monocytes (Bld) [#/Vol] 0.65 10*3/uL Normal 0.10-1.20 [facility] Comment on above: Performed By: #### C DP, CP, LIP, TROPI, LIPRF, GLYHGB #### [address] [address] [employer]: Brandon Anaya MD Monocytes/100 WBC (Bld) 9 % Normal 3-12 [facility] Comment on above: Performed By: #### C DP, CP, LIP, TROPI, LIPRF, GLYHGB #### [address] [address] [employer]: Brandon Anaya MD Neutrophil (Seg) 74 % High 36-65 [facility] Comment on above: Performed By: #### C DP, CP, LIP, TROPI, LIPRF, GLYHGB #### [address] [address] [employer]: Brandon Anaya MD NRBC Automated 0.0 per 100 WBC Normal 0.0 [facility] Comment on above: Performed By: #### C DP, CP, LIP, TROPI, LIPRF, GLYHGB #### [address] [address] [employer]: Brandon Anaya MD Platelet mean volume (Bld) [Entitic vol] 10.9 fL Normal 8.1-13.5 [facility] Comment on above: Performed By: #### C DP, CP, LIP, TROPI, LIPRF, GLYHGB #### [address] [address] [employer]: Brandon Anaya MD Platelets (Bld) [#/Vol] 170 10*3/uL Normal 138-453 [facility] Comment on above: Performed By: #### C DP, CP, LIP, TROPI, LIPRF, GLYHGB #### [address] [address] [employer]: Brandon Anaya MD RBC (Bld) [#/Vol] 4.53 10*6/uL Normal 3.95-5.11 [facility] Comment on above: Performed By: #### C DP, CP, LIP, TROPI, LIPRF, GLYHGB #### [address] [address] [employer]: Brandon Anaya MD RBC morphology finding Nom (Bld) ANISOCYTOSIS PRESENT Normal [facility] Comment on above: Performed By: #### C DP, CP, LIP, TROPI, LIPRF, GLYHGB #### [address] [address] [employer]: Brandon Anaya MD WBC (Bld) [#/Vol] 7.4 10*3/uL Normal 3.5-11.3 [facility] Comment on above: Performed By: #### C DP, CP, LIP, TROPI, LIPRF, GLYHGB #### [address] [address] [employer]: Brandon Anaya MD Auto Diff Performed NOT REPORTED Normal [facility] Comment on above: Performed By: #### C DP, CP, LIP, TROPI, LIPRF, GLYHGB #### [address] [address] [employer]: Brandon Anaya MD Platelets (Bld) [#/Vol] NOT REPORTED Normal [facility] Comment on above: Performed By: #### C DP, CP, LIP, TROPI, LIPRF, GLYHGB #### [address] [address] [employer]: Brandon Anaya MD WBC Morphology NOT REPORTED Normal [facility] Comment on above: Performed By: #### C DP, CP, LIP, TROPI, LIPRF, GLYHGB #### [address] [address] [employer]: Brandon Anaya MD CT HEAD WO CONTRASTon 2019 CT HEAD WO CONTRAST EXAMINATION: CT OF THE HEAD WITHOUT CONTRAST 10/10/2019 4:09 pm TECHNIQUE: CT of the head was performed without the administration of intravenous contrast. Dose modulation, iterative reconstruction, and/or weight based adjustment of the mA/kV was utilized to reduce the radiation dose to as low as reasonably achievable. COMPARISON: None. HISTORY: ORDERING SYSTEM PROVIDED HISTORY: worsened headache TECHNOLOGIST PROVIDED HISTORY: worsened headache Reason for Exam: worsened headache FINDINGS: BRAIN/VENTRICLES: There is no acute intracranial hemorrhage, mass effect or midline shift. No abnormal extra-axial fluid collection. The salmeron-white differentiation is maintained without evidence of an acute infarct. There is no evidence of hydrocephalus. Mild chronic white matter microvascular ischemic changes are present. ORBITS: The visualized portion of the orbits demonstrate no acute abnormality. SINUSES: The visualized paranasal sinuses and mastoid air cells demonstrate no acute abnormality. SOFT TISSUES/SKULL: No acute abnormality of the visualized skull or soft tissues. IMPRESSION: 1. No acute intracranial abnormality. 2. Mild chronic white matter microvascular ischemic changes. Interpreted by: Naga Browning MD Signed by: Naga Browning MD 10/10/19 Final result Normal [facility] 1. No acute intracra nial abnormality. 2. Mild chronic white matter microvascular ischemic changes. [place] EXAMINATION: CT OF T HE HEAD WITHOUT CONTRAST 10/10/2019 4:09 pm TECHNIQUE: CT of the head was performed without the administration of intravenous contrast. Dose modulation, iterative reconstruction, and/or weight based adjustment of the mA/kV was utilized to reduce the radiation dose to as low as reasonably achievable. COMPARISON: None. HISTORY: ORDERING SYSTEM PROVIDED HISTORY: worsened headache TECHNOLOGIST PROVIDED HISTORY: worsened headache Reason for Exam: worsened headache FINDINGS: BRAIN/VENTRICLES: There is no acute intracranial hemorrhage, mass effect or midline shift. No abnormal extra-axial fluid collection. The salmeron-white differentiation is maintained without evidence of an acute infarct. There is no evidence of hydrocephalus. Mild chronic white matter microvascular ischemic changes are present. ORBITS: The visualized portion of the orbits demonstrate no acute abnormality. SINUSES: The visualized paranasal sinuses and mastoid air cells demonstrate no acute abnormality. SOFT TISSUES/SKULL: No acute abnormality of the visualized skull or soft tissues. [place], [place] Prieto, pn Incoming Radiant Results From [facility] - 10/10/2019 5:31 PM EDT EXAMINATION: CT OF THE HEAD WITHOUT CONTRAST 10/10/2019 4:09 pm TECHNIQUE: CT of the head was performed without the administration of intravenous contrast. Dose modulation, iterative reconstruction, and/or weight based adjustment of the mA/kV was utilized to reduce the radiation dose to as low as reasonably achievable. COMPARISON: None. HISTORY: ORDERING SYSTEM PROVIDED HISTORY: worsened headache TECHNOLOGIST PROVIDED HISTORY: worsened headache Reason for Exam: worsened headache FINDINGS: BRAIN/VENTRICLES: There is no acute intracranial hemorrhage, mass effect or midline shift. No abnormal extra-axial fluid collection. The salmeron-white differentiation is maintained without evidence of an acute infarct. There is no evidence of hydrocephalus. Mild chronic white matter microvascular ischemic changes are present. ORBITS: The visualized portion of the orbits demonstrate no acute abnormality. SINUSES: The visualized paranasal sinuses and mastoid air cells demonstrate no acute abnormality. SOFT TISSUES/SKULL: No acute abnormality of the visualized skull or soft tissues. IMPRESSION: 1. No acute intracranial abnormality. 2. Mild chronic white matter microvascular ischemic changes. [place] CTA HEAD NECK W CONTRASTon 0 10-10-2019 CTA HEAD NECK W CONTRAST EXAMINATION: CTA OF THE HEAD AND NECK WITH CONTRAST 10/10/2019 4:10 pm: TECHNIQUE: CTA of the head and neck was performed with the administration of intravenous contrast. Multiplanar reformatted images are provided for review. MIP images are provided for review. Stenosis of the internal carotid arteries measured using NASCET criteria. Dose modulation, iterative reconstruction, and/or weight based adjustment of the mA/kV was utilized to reduce the radiation dose to as low as reasonably achievable. COMPARISON: None. HISTORY: ORDERING SYSTEM PROVIDED HISTORY: evaluate for stenosis or anuerysm. New onset headache, vertigo, dizziness TECHNOLOGIST PROVIDED HISTORY: evaluate for stenosis or anuerysm. New onset headache, vertigo, dizziness Reason for Exam: eval for stenosis or anuerysm Acuity: Acute Type of Exam: Initial FINDINGS: CTA NECK: AORTIC ARCH/ARCH VESSELS: [id number] atherosclerotic plaque at the arch arch and involving the descending thoracic aorta without aneurysm or dissection. Conventional 3 vessel arch anatomy. No significant stenosis or acute abnormality of the innominate or subclavian arteries. CAROTID ARTERIES: Minimal atherosclerotic plaque involving the common carotid arteries without significant stenosis. 20% stenosis of the proximal right internal carotid secondary to atherosclerotic plaque. Minimal atherosclerotic plaque involving the left carotid bulb without stenosis. External carotid arteries are patent. No dissection. VERTEBRAL ARTERIES: No dissection, arterial injury, or significant stenosis. SOFT TISSUES: The lung apices are clear other than moderate emphysematous changes no cervical or superior mediastinal lymphadenopathy. The larynx and pharynx are unremarkable. No acute abnormality of the salivary and thyroid glands. BONES: There is no acute fracture or suspect osseous lesion. There is C5-6 anterior interbody fusion. CTA HEAD: ANTERIOR CIRCULATION: No significant stenosis of the intracranial internal carotid, anterior cerebral, or middle cerebral arteries. No aneurysm. POSTERIOR CIRCULATION: No significant stenosis of the vertebral, basilar, or posterior cerebral arteries. No aneurysm. OTHER: No dural venous sinus thrombosis on this non-dedicated study. BRAIN: No mass effect or midline shift. No extra-axial fluid collection. The salmeron-white differentiation is maintained. IMPRESSION: 1. No acute arterial abnormality or hemodynamically significant arterial stenosis in the head or neck. 2. No intracranial aneurysm. Interpreted by: Naga Browning MD Signed by: Naga Browning MD 10/10/19 Final result Normal [facility] EXAMINATION: CTA OF THE HEAD AND NECK WITH CONTRAST 10/10/2019 4:10 pm: TECHNIQUE: CTA of the head and neck was performed with the administration of intravenous contrast. Multiplanar reformatted images are provided for review. MIP images are provided for review. Stenosis of the internal carotid arteries measured using NASCET criteria. Dose modulation, iterative reconstruction, and/or weight based adjustment of the mA/kV was utilized to reduce the radiation dose to as low as reasonably achievable. COMPARISON: None. HISTORY: ORDERING SYSTEM PROVIDED HISTORY: evaluate for stenosis or anuerysm. New onset headache, vertigo, dizziness TECHNOLOGIST PROVIDED HISTORY: evaluate for stenosis or anuerysm. New onset headache, vertigo, dizziness Reason for Exam: eval for stenosis or anuerysm Acuity: Acute Type of Exam: Initial FINDINGS: CTA NECK: AORTIC ARCH/ARCH VESSELS: [id number] atherosclerotic plaque at the arch arch and involving the descending thoracic aorta without aneurysm or dissection. Conventional 3 vessel arch anatomy. No significant stenosis or acute abnormality of the innominate or subclavian arteries. CAROTID ARTERIES: Minimal atherosclerotic plaque involving the common carotid arteries without significant stenosis. 20% stenosis of the proximal right internal carotid secondary to atherosclerotic plaque. Minimal atherosclerotic plaque involving the left carotid bulb without stenosis. External carotid arteries are patent. No dissection. VERTEBRAL ARTERIES: No dissection, arterial injury, or significant stenosis. SOFT TISSUES: The lung apices are clear other than moderate emphysematous changes no cervical or superior mediastinal lymphadenopathy. The larynx and pharynx are unremarkable. No acute abnormality of the salivary and thyroid glands. BONES: There is no acute fracture or suspect osseous lesion. There is C5-6 anterior interbody fusion. CTA HEAD: ANTERIOR CIRCULATION: No significant stenosis of the intracranial internal carotid, anterior cerebral, or middle cerebral arteries. No aneurysm. POSTERIOR CIRCULATION: No significant stenosis of the vertebral, basilar, or posterior cerebral arteries. No aneurysm. OTHER: No dural venous sinus thrombosis on this non-dedicated study. BRAIN: No mass effect or midline shift. No extra-axial fluid collection. The salmeron-white differentiation is maintained. [facility] [place] 1. No acute arterial abnormality or hemodynamically significant arterial stenosis in the head or neck. 2. No intracranial aneurysm. [place], [place] Prieto, Mhpn Incoming Radiant Results From [facility] - 10/10/2019 5:36 PM EDT EXAMINATION: CTA OF THE HEAD AND NECK WITH CONTRAST 10/10/2019 4:10 pm: TECHNIQUE: CTA of the head and neck was performed with the administration of intravenous contrast. Multiplanar reformatted images are provided for review. MIP images are provided for review. Stenosis of the internal carotid arteries measured using NASCET criteria. Dose modulation, iterative reconstruction, and/or weight based adjustment of the mA/kV was utilized to reduce the radiation dose to as low as reasonably achievable. COMPARISON: None. HISTORY: ORDERING SYSTEM PROVIDED HISTORY: evaluate for stenosis or anuerysm. New onset headache, vertigo, dizziness TECHNOLOGIST PROVIDED HISTORY: evaluate for stenosis or anuerysm. New onset headache, vertigo, dizziness Reason for Exam: eval for stenosis or anuerysm Acuity: Acute Type of Exam: Initial FINDINGS: CTA NECK: AORTIC ARCH/ARCH VESSELS: [id number] atherosclerotic plaque at the arch arch and involving the descending thoracic aorta without aneurysm or dissection. Conventional 3 vessel arch anatomy. No significant stenosis or acute abnormality of the innominate or subclavian arteries. CAROTID ARTERIES: Minimal atherosclerotic plaque involving the common carotid arteries without significant stenosis. 20% stenosis of the proximal right internal carotid secondary to atherosclerotic plaque. Minimal atherosclerotic plaque involving the left carotid bulb without stenosis. External carotid arteries are patent. No dissection. VERTEBRAL ARTERIES: No dissection, arterial injury, or significant stenosis. SOFT TISSUES: The lung apices are clear other than moderate emphysematous changes no cervical or superior mediastinal lymphadenopathy. The larynx and pharynx are unremarkable. No acute abnormality of the salivary and thyroid glands. BONES: There is no acute fracture or suspect osseous lesion. There is C5-6 anterior interbody fusion. CTA HEAD: ANTERIOR CIRCULATION: No significant stenosis of the intracranial internal carotid, anterior cerebral, or middle cerebral arteries. No aneurysm. POSTERIOR CIRCULATION: No significant stenosis of the vertebral, basilar, or posterior cerebral arteries. No aneurysm. OTHER: No dural venous sinus thrombosis on this non-dedicated study. BRAIN: No mass effect or midline shift. No extra-axial fluid collection. The salmeron-white differentiation is maintained. IMPRESSION: 1. No acute arterial abnormality or hemodynamically significant arterial stenosis in the head or neck. 2. No intracranial aneurysm. [place] Hemoglobin A1Con 10-10-2019 HbA1c (Bld) [Mass fraction] 111 mg/dL Normal [facility] Comment on above: Result Comment: The ADA and AACC recommend providing the estimated average glucose result to permit better patient understanding of their HBA1c result. Performed By: #### C DP, CP, LIP, TROPI, LIPRF, GLYHGB #### [facility] [place], [place] [id number] [employer]: Brandon Anaya MD HbA1c (Bld) [Mass fraction] 5.5 % Normal 4.0-6.0 [facility] Comment on above: Performed By: #### C DP, CP, LIP, TROPI, LIPRF, GLYHGB #### [facility] [address] [place] [id number] [employer]: Brandon Anaya MD Glucose [Mass/Vol] 111 mg/dL [place] Comment on above: The ADA and AACC rec ommend providing the estimated average glucose result to permit better patient understanding of their HBA1c result. HbA1c (Bld) [Mass fraction] 5.5 % 4 - 6 % [place] LACTIC ACID, WHOLE BLOODon 0 10-10-2019 Lactic Acid, Whole Blood 1.0 mmol/L 0.7 - 2.1 mmol/L [place] Lactic Acid,Whole Blon 10-09 Lactic Acid,Whole Bl 1.0 mmol/L Normal 0.7-2.1 [facility] Comment on above: Performed By: #### C DP, CP, LIP, TROPI, LIPRF, GLYHGB #### [facility] [address] [place], [place] [id number] [employer]: Brandon Anaya MD Magnesiumon 10-10-2019 Magnesium [Mass/Vol] 2.1 mg/dL Normal 1.6-2.6 [facility] Comment on above: Performed By: #### C DP, CP, LIP, TROPI, LIPRF, GLYHGB #### [facility] [employer] [facility] [place] [address] [employer]: Brandon Anaya MD Magnesium [Mass/Vol] 2.1 mg/dL 1.6 - 2 .6 mg/dL [facility] [place] Other[facility] 10-10-2019 1. Subtle sclerosis subjacent to the L2 and L3 superior endplates is age-indeterminate and could represent trabecular condensation associated with acute or subacute endplate fractures. MRI of the lumbar spine is recommended for further evaluation. 2. No acute osseous abnormality of the sacrum or coccyx. 3. Osteopenia. [place], [place] Prieto, Mhpn Incoming Radiant Results From [facility] - 10/10/2019 8:19 PM EDT EXAMINATION: THREE XRAY VIEWS OF THE SACRUM/COCCYX; THREE XRAY VIEWS OF THE LUMBAR SPINE 10/10/2019 5:40 pm COMPARISON: None. HISTORY: ORDERING SYSTEM PROVIDED HISTORY: rule out fracture TECHNOLOGIST PROVIDED HISTORY: rule out fracture; ORDERING SYSTEM PROVIDED HISTORY: back pain, rule out fracture or osteoporotic changes TECHNOLOGIST PROVIDED HISTORY: back pain, rule out fracture or osteoporotic changes FINDINGS: Lumbar spine: The bones are diffusely osteopenic. There is subtle sclerosis subjacent to the L2 and L3 superior endplates. Vertebral body heights are maintained. Alignment is normal. Disc space heights are maintained. There is excreted contrast in the urinary tract. Aortic atherosclerotic calcifications are present. Sacrum/coccyx: The bones are diffusely osteopenic. No acute fracture is seen. Alignment is normal. There is excreted contrast in the urinary bladder. Atherosclerotic calcifications are present. IMPRESSION: 1. Subtle sclerosis subjacent to the L2 and L3 superior endplates is age-indeterminate and could represent trabecular condensation associated with acute or subacute endplate fractures. MRI of the lumbar spine is recommended for further evaluation. 2. No acute osseous abnormality of the sacrum or coccyx. 3. Osteopenia. [place] EXAMINATION: THREE X RAY VIEWS OF THE SACRUM/COCCYX; THREE XRAY VIEWS OF THE LUMBAR SPINE 10/10/2019 5:40 pm COMPARISON: None. HISTORY: ORDERING SYSTEM PROVIDED HISTORY: rule out fracture TECHNOLOGIST PROVIDED HISTORY: rule out fracture; ORDERING SYSTEM PROVIDED HISTORY: back pain, rule out fracture or osteoporotic changes TECHNOLOGIST PROVIDED HISTORY: back pain, rule out fracture or osteoporotic changes FINDINGS: Lumbar spine: The bones are diffusely osteopenic. There is subtle sclerosis subjacent to the L2 and L3 superior endplates. Vertebral body heights are maintained. Alignment is normal. Disc space heights are maintained. There is excreted contrast in the urinary tract. Aortic atherosclerotic calcifications are present. Sacrum/coccyx: The bones are diffusely osteopenic. No acute fracture is seen. Alignment is normal. There is excreted contrast in the urinary bladder. Atherosclerotic calcifications are present. [place] POC Glucose Fingerstickon Glucose [Mass/Vol] 159 mg/dL High 65 - 105 mg/dL [place] Interpretation and review of laboratory results Abnormal [place] Glucose [Mass/Vol] 186 mg/dL High 65 - 105 mg/dL [place] Interpretation and review of laboratory results Abnormal [place] Glucose [Mass/Vol] 135 mg/dL High 65 - 105 mg/dL [place] Interpretation and review of laboratory results Abnormal [place] Procalcitoninon 10-10-2019 Procalcitonin 0.15 ng/mL High <0.09 [facility] Comment on above: Result Comment: Suspected Sepsis: <0.50 ng/mL Low likelihood of sepsis. 0.50-2.00 ng/mL Increased likelihood of sepsis. Antibiotics encouraged. >2.00 ng/mL High risk of sepsis/shock. Antibiotics strongly encouraged. Suspected Lower Resp Tract Infections: <0.24 ng/mL Low likelihood of bacterial infection. >0.24 ng/mL Increased likelihood of bacterial infection. Antibiotics encouraged. With successful antibiotic therapy, PCT levels should decrease rapidly. (Half-life of 24 to 36 hours.) Procalcitonin values from samples collected within the first 6 hours of systemic infection may still be low. Retesting may be indicated. Values from day 1 and day 4 can be entered into the Change in Procalcitonin Calculator ([email or web address]-dch-[email or web address]) to determine the patient's Mortality Risk Prognosis In healthy neonates, plasma Procalcitonin (PCT) concentrations increase gradually after , reaching peak values at about 24 hours of age then decrease to normal values below 0.5 ng/mL by 48-72 hours of age. Performed By: #### C DP, CP, LIP, TROPI, LIPRF, GLYHGB #### [facility] [employer] [facility] [place] [address] [employer]: Brandon Anaya MD Interpretation and review of laboratory results Abnormal [place] Procalcitonin 0.15 ng/mL High <0.09 [place] Comment on above: Suspected Sepsis: <0.50 ng/mL Low likelihood of sepsis. 0.50-2.00 ng/mL Increased likelihood of sepsis. Antibiotics encouraged. >2.00 ng/mL High risk of sepsis/shock. Antibiotics strongly encouraged. Suspected Lower Resp Tract Infections: <0.24 ng/mL Low likelihood of bacterial infection. >0.24 ng/mL Increased likelihood of bacterial infection. Antibiotics encouraged. With successful antibiotic therapy, PCT levels should decrease rapidly. (Half-life of 24 to 36 hours.) Procalcitonin values from samples collected within the first 6 hours of systemic infection may still be low. Retesting may be indicated. Values from day 1 and day 4 can be entered into the Change in Procalcitonin Calculator ([email or web address]-gmi-[email or web address]) to determine the patient's Mortality Risk Prognosis In healthy neonates, plasma Procalcitonin (PCT) concentrations increase gradually after , reaching peak values at about 24 hours of age then decrease to normal values below 0.5 ng/mL by 48-72 hours of age. Sedimentation Rateon 020 Sedimentation Rate 8 mm Normal 0-30 [facility] Comment on above: Performed By: #### C DP, CP, LIP, TROPI, LIPRF, GLYHGB #### [email or web address] [place] [address] [employer]: Brandon Anaya MD Sed Rate 8 mm 0 - 30 mm [place] TSH w/reflex to FT4on 2019 TSH Qn 1.05 m[IU]/L Normal 0.30-5.00 [facility] Comment on above: Performed By: #### C DP, CP, LIP, TROPI, LIPRF, GLYHGB #### [facility] [employer] [address] [place] [address] [employer]: Brandon Anaya MD TSH with Reflexon 10-10-2019 TSH Qn 1.05 m[IU]/L [facility] [place], [place] XR LUMBAR SPINE (2-3 VIEWS)o n 10-10-2019 XR LUMBAR SPINE (2-3 VIEWS) EXAMINATION: THREE XRAY VIEWS OF THE SACRUM/COCCYX; THREE XRAY VIEWS OF THE LUMBAR SPINE 10/10/2019 5:40 pm COMPARISON: None. HISTORY: ORDERING SYSTEM PROVIDED HISTORY: rule out fracture TECHNOLOGIST PROVIDED HISTORY: rule out fracture; ORDERING SYSTEM PROVIDED HISTORY: back pain, rule out fracture or osteoporotic changes TECHNOLOGIST PROVIDED HISTORY: back pain, rule out fracture or osteoporotic changes FINDINGS: Lumbar spine: The bones are diffusely osteopenic. There is subtle sclerosis subjacent to the L2 and L3 superior endplates. Vertebral body heights are maintained. Alignment is normal. Disc space heights are maintained. There is excreted contrast in the urinary tract. Aortic atherosclerotic calcifications are present. Sacrum/coccyx: The bones are diffusely osteopenic. No acute fracture is seen. Alignment is normal. There is excreted contrast in the urinary bladder. Atherosclerotic calcifications are present. IMPRESSION: 1. Subtle sclerosis subjacent to the L2 and L3 superior endplates is age-indeterminate and could represent trabecular condensation associated with acute or subacute endplate fractures. MRI of the lumbar spine is recommended for further evaluation. 2. No acute osseous abnormality of the sacrum or coccyx. 3. Osteopenia. Interpreted by: Naga Browning MD Signed by: Naga Browning MD 10/10/19 Final result Normal [facility] XR SACRUM COCCYX (MIN 2 VIEW S)on 10-10-2019 XR SACRUM COCCYX (MIN 2 VIEWS) EXAMINATION: THREE XRAY VIEWS OF THE SACRUM/COCCYX; THREE XRAY VIEWS OF THE LUMBAR SPINE 10/10/2019 5:40 pm COMPARISON: None. HISTORY: ORDERING SYSTEM PROVIDED HISTORY: rule out fracture TECHNOLOGIST PROVIDED HISTORY: rule out fracture; ORDERING SYSTEM PROVIDED HISTORY: back pain, rule out fracture or osteoporotic changes TECHNOLOGIST PROVIDED HISTORY: back pain, rule out fracture or osteoporotic changes FINDINGS: Lumbar spine: The bones are diffusely osteopenic. There is subtle sclerosis subjacent to the L2 and L3 superior endplates. Vertebral body heights are maintained. Alignment is normal. Disc space heights are maintained. There is excreted contrast in the urinary tract. Aortic atherosclerotic calcifications are present. Sacrum/coccyx: The bones are diffusely osteopenic. No acute fracture is seen. Alignment is normal. There is excreted contrast in the urinary bladder. Atherosclerotic calcifications are present. IMPRESSION: 1. Subtle sclerosis subjacent to the L2 and L3 superior endplates is age-indeterminate and could represent trabecular condensation associated with acute or subacute endplate fractures. MRI of the lumbar spine is recommended for further evaluation. 2. No acute osseous abnormality of the sacrum or coccyx. 3. Osteopenia. Interpreted by: Naga Browning MD Signed by: Naga Browning MD 10/10/19 Final result Normal [facility] Beta Hydroxybutyrateon 10-08 Beta Hydroxybutyrate 0.09 mmol/L Normal 0.02-0.27 [facility] Comment on above: Performed By: #### T OSMAR #### [facility] [address] [place] [id number] [employer]: Brandon Anaya MD Beta-Hydroxybutyrateon 10-08 Beta-Hydroxybutyrate 0.09 mmol/L 0.02 - 0.27 mmol/L [place], [place] CBC WITH AUTO DIFFERENTIALon 10-09-2019 Basophils (Bld) [#/Vol] 0.03 10*3/uL [place] Basophils/100 WBC (Bld) 0 % 0 - 2 % [place] Differential Type NOT REPORTED [place] Eosinophils (Bld) [#/Vol] 10*3/uL [place] Eosinophils/100 WBC (Bld) 0 % Low 1 - 4 % [place] Erythrocyte distribution width (RBC) [Ratio] 14.2 % 11.8 - 14.4 % [place] Hematocrit (Bld) [Volume fraction] 44.6 % 36.3 - 47.1 % [place] Hemoglobin (Bld) [Mass/Vol] 14.2 g/dL 11.9 - 15.1 g/dL [place] Immature granulocytes (Bld) [#/Vol] 1 % High 0 [place] Immature granulocytes (Bld) [#/Vol] 0.06 10*3/uL [place] Interpretation and review of laboratory results Abnormal [place] Lymphocytes (Bld) [#/Vol] 0.97 10*3/uL Low [place] Lymphocytes/100 WBC (Bld) 13 % Low 24 - 43 % [place] MCH (RBC) [Entitic mass] 29.7 pg 25.2 - 33.5 pg [place] MCHC (RBC) [Mass/Vol] 31.8 g/dL 28.4 - 34.8 g/dL [place] MCV (RBC) [Entitic vol] 93.3 fL 82.6 - 102.9 fL [place] Monocytes (Bld) [#/Vol] 0.52 10*3/uL [place] Monocytes/100 WBC (Bld) 7 % 3 - 12 % [place] Platelet mean volume (Bld) [Entitic vol] 10.9 fL 8.1 - 13.5 fL [place] Platelets (Bld) [#/Vol] NOT REPORTED [place] Platelets (Bld) [#/Vol] 202 10*3/uL [place] RBC (Bld) [#/Vol] 4.78 10*6/uL 3.95 - 5.1 1 m/uL [place] RBC morphology finding Nom (Bld) NOT REPORTED [place] Segmented neutrophils/100 WBC (Bld) 79 % High 36 - 65 % [place] Segs Absolute 6.10 [place] WBC (Bld) [#/Vol] 0.0 10*3/uL 0.0 per 10 0 WBC [place] WBC (Bld) [#/Vol] 7.7 10*3/uL [place] WBC Morphology NOT REPORTED [place] CBC with Diffon 10-09-2019 Abs. Basophil 0.03 k/uL Normal 0.00-0.20 [facility] Comment on above: Performed By: #### C DP, CP, LIP, TROPI, LIPRF, GLYHGB #### [address] [address] [employer]: Brandon Anaya MD Abs.Imm.Granulocyte 0.06 k/uL Normal 0.00-0.30 [facility] Comment on above: Performed By: #### C DP, CP, LIP, TROPI, LIPRF, GLYHGB #### [address] [address] [employer]: Brandon Anaya MD Abs.Neutrophil (Seg) 6.10 k/uL Normal 1.50-8.10 [facility] Comment on above: Performed By: #### C DP, CP, LIP, TROPI, LIPRF, GLYHGB #### [address] [address] [employer]: Brandon Anaya MD Basophils/100 WBC (Bld) 0 % Normal 0-2 [facility] Comment on above: Performed By: #### C DP, CP, LIP, TROPI, LIPRF, GLYHGB #### [address] [address] [employer]: Brandon Anaya MD Eosinophils (Bld) [#/Vol] 10*3/uL Normal 0.00-0.44 [facility] Comment on above: Performed By: #### C DP, CP, LIP, TROPI, LIPRF, GLYHGB #### [address] [address] [employer]: Brandon Anaya MD Eosinophils/100 WBC (Bld) 0 % Low 1-4 [facility] Comment on above: Performed By: #### C DP, CP, LIP, TROPI, LIPRF, GLYHGB #### [address] [address] [employer]: Brandon Anaya MD Erythrocyte distribution width (RBC) [Ratio] 14.2 % Normal 11.8-14.4 [facility] Comment on above: Performed By: #### C DP, CP, LIP, TROPI, LIPRF, GLYHGB #### [address] [address] [employer]: Brandon Anaya MD Hematocrit (Bld) [Volume fraction] 44.6 % Normal 36.3-47.1 [facility] Comment on above: Performed By: #### C DP, CP, LIP, TROPI, LIPRF, GLYHGB #### [address] [address] [employer]: Brandon Anaya MD Hemoglobin (Bld) [Mass/Vol] 14.2 g/dL Normal 11.9-15.1 [facility] Comment on above: Performed By: #### C DP, CP, LIP, TROPI, LIPRF, GLYHGB #### [address] [address] [employer]: Brandon Anaya MD Immature granulocytes (Bld) [#/Vol] 1 % High 0 [facility] Comment on above: Performed By: #### C DP, CP, LIP, TROPI, LIPRF, GLYHGB #### [address] [address] [employer]: Brandon Anaya MD Lymphocytes (Bld) [#/Vol] 0.97 10*3/uL Low 1.10-3.70 [facility] Comment on above: Performed By: #### C DP, CP, LIP, TROPI, LIPRF, GLYHGB #### [facility] [employer] [address] [place] [address] [employer]: Brandon Anaya MD Lymphocytes/100 WBC (Bld) 13 % Low 24-43 [facility] Comment on above: Performed By: #### C DP, CP, LIP, TROPI, LIPRF, GLYHGB #### [address] [address] [employer]: Brandon Anaya MD MCH (RBC) [Entitic mass] 29.7 pg Normal 25.2-33.5 [facility] Comment on above: Performed By: #### C DP, CP, LIP, TROPI, LIPRF, GLYHGB #### [address] [address] [employer]: Brandon Anaya MD MCHC (RBC) [Mass/Vol] 31.8 g/dL Normal 28.4-34.8 [facility] Comment on above: Performed By: #### C DP, CP, LIP, TROPI, LIPRF, GLYHGB #### [address] [address] [employer]: Brandon Anaya MD MCV (RBC) [Entitic vol] 93.3 fL Normal 82.6-102.9 [facility] Comment on above: Performed By: #### C DP, CP, LIP, TROPI, LIPRF, GLYHGB #### [place] [address] [employer]: Brandon Anaya MD Monocytes (Bld) [#/Vol] 0.52 10*3/uL Normal 0.10-1.20 [facility] Comment on above: Performed By: #### C DP, CP, LIP, TROPI, LIPRF, GLYHGB #### [address] [address] [employer]: Brandon Anaya MD Monocytes/100 WBC (Bld) 7 % Normal 3-12 [facility] Comment on above: Performed By: #### C DP, CP, LIP, TROPI, LIPRF, GLYHGB #### [address] [address] [employer]: Brandon Anaya MD Neutrophil (Seg) 79 % High 36-65 [facility] Comment on above: Performed By: #### C DP, CP, LIP, TROPI, LIPRF, GLYHGB #### [address] [address] [employer]: Brandon Anaya MD NRBC Automated 0.0 per 100 WBC Normal 0.0 [facility] Comment on above: Performed By: #### C DP, CP, LIP, TROPI, LIPRF, GLYHGB #### [address] [address] [employer]: Brandon Anaya MD Platelet mean volume (Bld) [Entitic vol] 10.9 fL Normal 8.1-13.5 [facility] Comment on above: Performed By: #### C DP, CP, LIP, TROPI, LIPRF, GLYHGB #### [address] [address] [employer]: Brandon Anaya MD Platelets (Bld) [#/Vol] 202 10*3/uL Normal 138-453 [facility] Comment on above: Performed By: #### C DP, CP, LIP, TROPI, LIPRF, GLYHGB #### [address] [address] [employer]: Brandon Anaay MD RBC (Bld) [#/Vol] 4.78 10*6/uL Normal 3.95-5.11 [facility] Comment on above: Performed By: #### C DP, CP, LIP, TROPI, LIPRF, GLYHGB #### [address] [address] [employer]: Brandon Anaya MD WBC (Bld) [#/Vol] 7.7 10*3/uL Normal 3.5-11.3 [facility] Comment on above: Performed By: #### C DP, CP, LIP, TROPI, LIPRF, GLYHGB #### [address] [address] [employer]: Brandon Anaya MD Auto Diff Performed NOT REPORTED Normal [facility] Comment on above: Performed By: #### C DP, CP, LIP, TROPI, LIPRF, GLYHGB #### [address] [address] [employer]: Brandon Anaya MD Platelets (Bld) [#/Vol] NOT REPORTED Normal [facility] Comment on above: Performed By: #### C DP, CP, LIP, TROPI, LIPRF, GLYHGB #### [address] [address] [employer]: Brandon Anaya MD RBC morphology finding Nom (Bld) NOT REPORTED Normal [facility] Comment on above: Performed By: #### C DP, CP, LIP, TROPI, LIPRF, GLYHGB #### [address] [address] [employer]: Brandon Anaya MD WBC Morphology NOT REPORTED Normal [facility] Comment on above: Performed By: #### C DP, CP, LIP, TROPI, LIPRF, GLYHGB #### [address] [address] [employer]: Brandon Anaya MD COVID-19, PCRon 10-09-2019 SARS-CoV-2 [place] SARS-CoV-2, PCR [place] SARS-CoV-2, Rapid Not Detected Not Detected [place] Comment on above: Rapid NAAT: The specimen is NEGATIVE for SARS-CoV-2, the novel coronavirus associated with COVID-19. The ID NOW COVID-19 assay is designed to detect the virus that causes COVID-19 in patients with signs and symptoms of infection who are suspected of COVID-19. An individual without symptoms of COVID-19 and who is not shedding SARS-CoV-2 virus would expect to have a negative (not detected) result in this assay. Negative results should be treated as presumptive and, if inconsistent with clinical signs and symptoms or necessary for patient management, should be tested with an alternative molecular assay. Negative results do not preclude SARS-CoV-2 infection and should not be used as the sole basis for patient management decisions. Fact sheet for Healthcare Providers: https://www.fda.gov/media/611686/download Fact sheet for Patients: https://www.fda.gov/media/472157/download Methodology: Isothermal Nucleic Acid Amplification Source .NASOPHARYNGEAL SWAB [place], [place] CT CHEST PULMONARY EMBOLISM W CONTRASTon 10-09-2019 CT CHEST PULMONARY EMBOLISM W CONTRAST EXAMINATION: CTA OF THE CHEST 10/09/2019 5:52 am TECHNIQUE: CTA of the chest was performed after the administration of intravenous contrast. Multiplanar reformatted images are provided for review. MIP images are provided for review. Dose modulation, iterative reconstruction, and/or weight based adjustment of the mA/kV was utilized to reduce the radiation dose to as low as reasonably achievable. COMPARISON: Chest radiograph June 27, 2017. HISTORY: ORDERING SYSTEM PROVIDED HISTORY: hypoxic TECHNOLOGIST PROVIDED HISTORY: hypoxic Reason for Exam: hypoxic Acuity: Acute Type of Exam: Initial FINDINGS: Chest wall: No axillary adenopathy. Upper Abdomen: No adrenal nodule. Mediastinum: Cardiomegaly. Trace pericardial fluid. No adenopathy. Atherosclerotic calcification of the thoracic aorta. Pulmonary Arteries: No central or segmental pulmonary embolus. Lungs: Centrilobular emphysema. Dependent lung changes. No pleural effusions. No focal consolidation. Bones: Thoracic spine degenerative changes. IMPRESSION: No central or segmental pulmonary embolus. No acute pulmonary process. Emphysema. Interpreted by: Wendy Darby MD Signed by: Wendy Darby MD 10/09/19 Final result Normal [facility] No central or segmen rhett pulmonary embolus. No acute pulmonary process. Emphysema. [place], [place] EXAMINATION: CTA OF THE CHEST 10/09/2019 5:52 am TECHNIQUE: CTA of the chest was performed after the administration of intravenous contrast. Multiplanar reformatted images are provided for review. MIP images are provided for review. Dose modulation, iterative reconstruction, and/or weight based adjustment of the mA/kV was utilized to reduce the radiation dose to as low as reasonably achievable. COMPARISON: Chest radiograph June 27, 2017. HISTORY: ORDERING SYSTEM PROVIDED HISTORY: hypoxic TECHNOLOGIST PROVIDED HISTORY: hypoxic Reason for Exam: hypoxic Acuity: Acute Type of Exam: Initial FINDINGS: Chest wall: No axillary adenopathy. Upper Abdomen: No adrenal nodule. Mediastinum: Cardiomegaly. Trace pericardial fluid. No adenopathy. Atherosclerotic calcification of the thoracic aorta. Pulmonary Arteries: No central or segmental pulmonary embolus. Lungs: Centrilobular emphysema. Dependent lung changes. No pleural effusions. No focal consolidation. Bones: Thoracic spine degenerative changes. [facility] Incoming Radiant Results From [facility] - 10/09/2019 8:31 AM EDT EXAMINATION: CTA OF THE CHEST 10/09/2019 5:52 am TECHNIQUE: CTA of the chest was performed after the administration of intravenous contrast. Multiplanar reformatted images are provided for review. MIP images are provided for review. Dose modulation, iterative reconstruction, and/or weight based adjustment of the mA/kV was utilized to reduce the radiation dose to as low as reasonably achievable. COMPARISON: Chest radiograph June 27, 2017. HISTORY: ORDERING SYSTEM PROVIDED HISTORY: hypoxic TECHNOLOGIST PROVIDED HISTORY: hypoxic Reason for Exam: hypoxic Acuity: Acute Type of Exam: Initial FINDINGS: Chest wall: No axillary adenopathy. Upper Abdomen: No adrenal nodule. Mediastinum: Cardiomegaly. Trace pericardial fluid. No adenopathy. Atherosclerotic calcification of the thoracic aorta. Pulmonary Arteries: No central or segmental pulmonary embolus. Lungs: Centrilobular emphysema. Dependent lung changes. No pleural effusions. No focal consolidation. Bones: Thoracic spine degenerative changes. IMPRESSION: No central or segmental pulmonary embolus. No acute pulmonary process. Emphysema. [employer], [employer] Comp Metabolic Profon 2019 (cont.) Normal [facility] Comment on above: Result Comment: Aver age GFR for 70 or more years old: 75 mL/min/1.73sq m Chronic Kidney Disease: <60 mL/min/1.73sq m Kidney failure: <15 mL/min/1.73sq m eGFR calculated using average adult body mass. Additional eGFR calculator available at: http://www.[employer]/multiple_crcl_2011.htm Performed By: #### C DP, CP, LIP, TROPI, LIPRF, GLYHGB #### [address] [address] [employer]: Brandon Anaya MD Albumin [Mass/Vol] 4.1 g/dL Normal 3.5-5.2 [facility] Comment on above: Performed By: #### C DP, CP, LIP, TROPI, LIPRF, GLYHGB #### [address] [address] [employer]: Brandon Anaya MD Albumin/Globulin [Mass ratio] 1.6 {ratio} Normal 1.0-2.5 [facility] Comment on above: Performed By: #### C DP, CP, LIP, TROPI, LIPRF, GLYHGB #### [address] [address] [employer]: Brandon Anaya MD Alkaline Phos 90 U/L Normal 35-104 [facility] Comment on above: Performed By: #### C DP, CP, LIP, TROPI, LIPRF, GLYHGB #### [address] [address] [employer]: Brandon Anaya MD ALT [Catalytic activity/Vol] 15 U/L Normal 5-33 [facility] Comment on above: Performed By: #### C DP, CP, LIP, TROPI, LIPRF, GLYHGB #### [address] [address] [employer]: Brandon Anaya MD Anion gap [Moles/Vol] 18 mmol/L High 9-17 [facility] Comment on above: Performed By: #### C DP, CP, LIP, TROPI, LIPRF, GLYHGB #### [facility] [employer] [address] [place] [address] [employer]: Brandon Anaya MD AST [Catalytic activity/Vol] 11 U/L Normal <32 [facility] Comment on above: Performed By: #### C DP, CP, LIP, TROPI, LIPRF, GLYHGB #### [address] [address] [employer]: Brandon Anaya MD Bilirubin Ql (U) 0.39 mg/dL Normal 0.3-1.2 [facility] Comment on above: Performed By: #### C DP, CP, LIP, TROPI, LIPRF, GLYHGB #### [address] [address] [employer]: Brandon Anaya MD Calcium [Mass/Vol] 9.5 mg/dL Normal 8.6-10.4 [facility] Comment on above: Performed By: #### C DP, CP, LIP, TROPI, LIPRF, GLYHGB #### [facility] [employer] [address] [place] [address] [employer]: Brandon Anaya MD Chloride [Moles/Vol] 99 mmol/L Normal 98-107 [facility] Comment on above: Performed By: #### C DP, CP, LIP, TROPI, LIPRF, GLYHGB #### [facility] [employer] [address] [place] [address] [employer]: Brandon Anaya MD CO2 [Moles/Vol] 24 mmol/L Normal 20-31 [facility] Comment on above: Performed By: #### C DP, CP, LIP, TROPI, LIPRF, GLYHGB #### [facility] [employer] [address] [place] [address] [employer]: Brandon Anyaa MD Creatinine [Mass/Vol] 0.63 mg/dL Normal 0.50-0.90 [facility] Comment on above: Performed By: #### C DP, CP, LIP, TROPI, LIPRF, GLYHGB #### [facility] [employer] [address] [place] [address] [employer]: Brandon Anaya MD GFR, Amer >60 Normal >60 [facility] Comment on above: Performed By: #### C DP, CP, LIP, TROPI, LIPRF, GLYHGB #### [facility] [employer] [address] [place] [address] [employer]: Brandon Anaya MD GFR,non Amer >60 Normal >60 [facility] Comment on above: Performed By: #### C DP, CP, LIP, TROPI, LIPRF, GLYHGB #### [facility] [employer] [address] [place] [address] [employer]: Brandon Anaya MD Glucose [Mass/Vol] 208 mg/dL High 70-99 [facility] Comment on above: Performed By: #### C DP, CP, LIP, TROPI, LIPRF, GLYHGB #### [facility] [employer] [address] [place] [address] [employer]: Brandon Anaya MD Potassium [Moles/Vol] 3.9 mmol/L Normal 3.7-5.3 [facility] Comment on above: Performed By: #### C DP, CP, LIP, TROPI, LIPRF, GLYHGB #### [facility] [employer] [address] [place] [address] [employer]: Brandon Anaya MD Protein [Mass/Vol] 6.6 g/dL Normal 6.4-8.3 [facility] Comment on above: Performed By: #### C DP, CP, LIP, TROPI, LIPRF, GLYHGB #### [facility] [employer] [address] [place] [address] [employer]: Brandon Anaya MD Sodium [Moles/Vol] 141 mmol/L Normal 135-144 [facility] Comment on above: Performed By: #### C DP, CP, LIP, TROPI, LIPRF, GLYHGB #### [facility] [employer] [address] [place] [address] [employer]: Brandon Anaya MD Urea nitrogen [Mass/Vol] 17 mg/dL Normal 8- [facility] Comment on above: Performed By: #### C DP, CP, LIP, TROPI, LIPRF, GLYHGB #### [facility] [address] [place] [address] [employer]: Brandon Anaya MD BUN/CRE Ratio NOT REPORTED Normal - [facility] Comment on above: Performed By: #### C DP, CP, LIP, TROPI, LIPRF, GLYHGB #### [facility] [employer] [address] [place] [address] [employer]: Brandon Anaya MD Staging: NOT REPORTED Normal [facility] Comment on above: Performed By: #### C DP, CP, LIP, TROPI, LIPRF, GLYHGB #### [facility] [address] [place] [address] [employer]: Brandon Anaya MD Comprehensive Metabolic Pane [facility] 10-09-2019 Albumin [Mass/Vol] 4.1 g/dL 3.5 - 5.2 g/dL [place] Albumin/Globulin [Mass ratio] 1.6 {ratio} [place] ALP [Catalytic activity/Vol] 90 U/L 35 - 104 U/L [place] ALT [Catalytic activity/Vol] 15 U/L 5 - 33 U/L [place] Anion gap [Moles/Vol] 18 mmol/L High 9 - 17 mmol/L [place] AST [Catalytic activity/Vol] 11 U/L <32 [place] Bilirubin Ql (U) 0.39 mg/dL 0.3 - 1.2 mg/dL [place] Bun/Cre Ratio NOT REPORTED [place] Calcium [Mass/Vol] 9.5 mg/dL 8.6 - 10. 4 mg/dL [place] Chloride [Moles/Vol] 99 mmol/L 98 - 10 7 mmol/L [place] CO2 [Moles/Vol] 24 mmol/L 20 - 31 mmol/L [place] Creatinine [Mass/Vol] 0.63 mg/dL 0.5 - 0.9 mg/dL [place] GFR >60 >60 mL/min [place] GFR Non- >60 >60 mL/min [place] GFR/1.73 sq M predicted among non-blacks MDRD (S/P/Bld) [Vol rate/Area] [place] Comment on above: Average GFR for 70 o r more years old: 75 mL/min/1.73sq m Chronic Kidney Disease: <60 mL/min/1.73sq m Kidney failure: <15 mL/min/1.73sq m eGFR calculated using average adult body mass. Additional eGFR calculator available at: http://www.[employer]/multiple_crcl_2012.htm GFR/1.73 sq M predicted among non-blacks MDRD (S/P/Bld) [Vol rate/Area] NOT REPORTED [place] Glucose [Mass/Vol] 208 mg/dL High 70 - 99 mg/dL [place] Interpretation and review of laboratory results Abnormal [place] Potassium [Moles/Vol] 3.9 mmol/L 3.7 - 5.3 mmol/L [place] Protein [Mass/Vol] 6.6 g/dL 6.4 - 8.3 g/dL [place] Sodium [Moles/Vol] 141 mmol/L 135 - 144 mmol/L [place] Urea nitrogen [Mass/Vol] 17 mg/dL 8 - 23 mg/dL [place] EKG 12 Leadon 10-09-2019 Atrial Rate 70 BPM [place] P I[place] 54 degrees [place] P-R Interval 136 ms [place] Q-T Interval 432 ms [facility], [place] QRS Duration 80 ms [place] QTc Calculation (Bazett) 466 ms [place] R [place] -9 degrees [facility], [place] T Irrigon 3 degrees [facility] Ventricular Rate 70 BPM [place] Prieto, Mhpn Incoming E kg Results From [facility] - 10/09/2019 3:25 PM EDT Normal sinus rhythm Possible Left atrial enlargement Nonspecific ST abnormality Abnormal ECG No previous ECGs available [place] Normal sinus rhythm Possible Left atrial enlargement Nonspecific ST abnormality Abnormal ECG No previous ECGs available [place] LIPASEon 10-09-2019 Lipase [Catalytic activity/Vol] 48 U/L 13 - 60 U/L [place] Lipaseon 10-09-2019 Lipase [Catalytic activity/Vol] 48 U/L Normal 13-60 [facility] Comment on above: Performed By: #### C DP, CP, LIP, TROPI, LIPRF, GLYHGB #### [employer] [address] [place] [address] [employer]: Brandon Anaya MD Lipid Prof, Fastingon 2019 Cholesterol [Mass/Vol] 229 mg/dL High <200 [facility] Comment on above: Result Comment: Cholesterol Guidelines: <200 Desirable 200-240 Borderline >240 Undesirable Performed By: #### C DP, CP, LIP, TROPI, LIPRF, GLYHGB #### [employer] [address] [place] [address] [employer]: Brandon Anaya MD Cholesterol in HDL [Mass/Vol] 50 mg/dL Normal >40 [facility] Comment on above: Result Comment: HDL Guidelines: <40 Undesirable 40-59 Borderline >59 Desirable Performed By: #### C DP, CP, LIP, TROPI, LIPRF, GLYHGB #### [email or web address] [address] [place] [id number] [employer]: Brandon Anaya MD Cholesterol in LDL [Mass/Vol] 143 mg/dL High 0-130 [facility] Comment on above: Result Comment: LDL Guidelines: <100 Desirable 100-129 Near to/above Desirable 130-159 Borderline >159 Undesirable Direct (measured) LDL and calculated LDL are not interchangeable tests. Performed By: #### C DP, CP, LIP, TROPI, LIPRF, GLYHGB #### [facility] [employer] [address] [place] [phone] [employer]: Brandon Anaya MD Cholesterol.total/Chol esterol in HDL [Mass ratio] 4.6 {ratio} Normal <5 [facility] Comment on above: Performed By: #### C DP, CP, LIP, TROPI, LIPRF, GLYHGB #### [facility] [employer] [address] [place] [address] [employer]: Brandon Anaya MD Triglyceride,Fasting 182 mg/dL High <150 [facility] Comment on above: Result Comment: Triglyceride Guidelines: <150 Desirable 150-199 Borderline 200-499 High >499 Very high Based on AHA Guidelines for fasting triglyceride, November 2011. Performed By: #### C DP, CP, LIP, TROPI, LIPRF, GLYHGB #### [facility] [employer] [facility] [place] [address] [employer]: Brandon Anaya MD Cholesterol in VLDL [Mass/Vol] NOT REPORTED Normal -30 [facility] Comment on above: Performed By: #### C DP, CP, LIP, TROPI, LIPRF, GLYHGB #### [facility] [employer] [facility] [place] [address] [employer]: Brandon Anaya MD Lipid, Fastingon 10-09-2019 Cholesterol [Mass/Vol] 229 mg/dL High <200 [place] Comment on above: Cholesterol Guidelines: <200 Desirable 200-240 Borderline >240 Undesirable Cholesterol in HDL [Mass/Vol] 50 mg/dL >40 [place] Comment on above: HDL Guidelines: <40 Undesirable 40-59 Borderline >59 Desirable Cholesterol in LDL [Mass/Vol] 143 mg/dL High 0 - 130 mg/dL [place] Comment on above: LDL Guidelines: <100 Desirable 100-129 Near to/above Desirable 130-159 Borderline >159 Undesirable Direct (measured) LDL and calculated LDL are not interchangeable tests. Cholesterol in VLDL [Mass/Vol] NOT REPORTED High 1 - 30 mg/dL [place] Cholesterol.total/Chol esterol in HDL [Mass ratio] 4.6 {ratio} <5 [place] Interpretation and review of laboratory results Abnormal [place] Triglyceride, Fasting 182 mg/dL High <150 [place] Comment on above: Triglyceride Guidelines: <150 Desirable 150-199 Borderline 200-499 High >499 Very high Based on AHA Guidelines for fasting triglyceride, November 2011. POC Glucose Fingerstickon Glucose [Mass/Vol] 126 mg/dL High 65 - 105 mg/dL [place] Interpretation and review of laboratory results Abnormal [place] [id number] 10-09-2019 SARS-CoV-2 Normal [facility] Comment on above: Performed By: #### C OVID #### [facility] [employer] [address] [place] [address] [employer]: Brandon Anaya MD SARS-CoV-2,Rapid Not Detected Normal NOTDET [facility] Comment on above: Result Comment: Rapid NAAT: The specimen is NEGATIVE for SARS-CoV-2, the novel coronavirus associated with COVID-19. The ID NOW COVID-19 assay is designed to detect the virus that causes COVID-19 in patients with signs and symptoms of infection who are suspected of COVID-19. An individual without symptoms of COVID-19 and who is not shedding SARS-CoV-2 virus would expect to have a negative (not detected) result in this assay. Negative results should be treated as presumptive and, if inconsistent with clinical signs and symptoms or necessary for patient management, should be tested with an alternative molecular assay. Negative results do not preclude SARS-CoV-2 infection and should not be used as the sole basis for patient management decisions. Fact sheet for Healthcare Providers: https://www.fda.gov/media/579779/download Fact sheet for Patients: https://www.fda.gov/media/807282/download Methodology: Isothermal Nucleic Acid Amplification Performed By: #### C OVID #### [email or web address] [address] [place] [address] [employer]: Brandon Anaya MD SARS-CoV-2 Source .NASOPHARYNGEAL SWAB Normal [facility] Comment on above: Performed By: #### C OVID #### [email or web address] [address] [place] [address] [employer]: Brandon Anaya MD Troponinon 10-09-2019 Troponin I.cardiac [Mass/Vol] 10 ng/L Normal 0-14 [facility] Comment on above: Result Comment: High Sensitivity Troponin values cannot be compared with other Troponin methodologies. Patients with high levels of Biotin oral intake (i.e >5mg/day) may have falsely decreased Troponin levels. Samples collected within 8 hours of biotin intake may require additional information for diagnosis. Performed By: #### T OSMAR #### [email or web address] [address] [place] [address] [employer]: Brandon Anaya MD Troponin I.cardiac [Mass/Vol] NOT REPORTED Normal <0.03 [facility] Comment on above: Performed By: #### T OSMAR #### [email or web address] [address] [place] [address] [employer]: Brandon Anaya MD Troponin I.cardiac [Mass/Vol] 10 ng/L Normal 0-14 [facility] Comment on above: Result Comment: High Sensitivity Troponin values cannot be compared with other Troponin methodologies. Patients with high levels of Biotin oral intake (i.e >5mg/day) may have falsely decreased Troponin levels. Samples collected within 8 hours of biotin intake may require additional information for diagnosis. Performed By: #### C DP, CP, LIP, TROPI, LIPRF, GLYHGB #### [facility] [address] [place], [place] [id number] [employer]: Brandon Anaya MD Troponin I.cardiac [Mass/Vol] NOT REPORTED [place] Troponin T.cardiac [Mass/Vol] NOT REPORTED <0.03 ng/mL [place] Troponin, High Sensitivity 10 ng/L 0 - 14 ng/L [place] Comment on above: High Sensitivity Troponin values cannot be compared with other Troponin methodologies. Patients with high levels of Biotin oral intake (i.e >5mg/day) may have falsely decreased Troponin levels. Samples collected within 8 hours of biotin intake may require additional information for diagnosis. Troponin I.cardiac [Mass/Vol] NOT REPORTED Normal <0.03 [facility] Comment on above: Performed By: #### C DP, CP, LIP, TROPI, LIPRF, GLYHGB #### [facility] [address] [place] [address] [employer]: Brandon Anaya MD Troponin I.cardiac [Mass/Vol] NOT REPORTED [place] Troponin T.cardiac [Mass/Vol] NOT REPORTED <0.03 ng/mL [place] Troponin, High Sensitivity 10 ng/L 0 - 14 ng/L [place] Comment on above: High Sensitivity Troponin values cannot be compared with other Troponin methodologies. Patients with high levels of Biotin oral intake (i.e >5mg/day) may have falsely decreased Troponin levels. Samples collected within 8 hours of biotin intake may require additional information for diagnosis. UA w/Reflex Cultureon 2019 Acetoacetic Acid,Ur TRACE Abnormal NEG [facility] Comment on above: Performed By: #### C DP, CP, LIP, TROPI, LIPRF, GLYHGB #### [facility] [address] [place] [id number] [employer]: Brandon Anaya MD Bilirubin, SemiQt,Ur Negative Normal NEG [facility] Comment on above: Performed By: #### C DP, CP, LIP, TROPI, LIPRF, GLYHGB #### [address] [address] [employer]: Brandon Anaya MD Color (U) YELLOW Normal YEL [facility] Comment on above: Performed By: #### C DP, CP, LIP, TROPI, LIPRF, GLYHGB #### [address] [address] [employer]: Brandon Anaya MD Glucose Ql (U) Negative Normal NEG [facility] Comment on above: Performed By: #### C DP, CP, LIP, TROPI, LIPRF, GLYHGB #### [address] [address] [employer]: Brandon Anaya MD Hemoglobin, Ur Negative Normal NEG [facility] Comment on above: Performed By: #### C DP, CP, LIP, TROPI, LIPRF, GLYHGB #### [address] [address] [employer]: Brandon Anaya MD Leukocyte esterase Test strip Ql (U) Negative Normal NEG [facility] Comment on above: Performed By: #### C DP, CP, LIP, TROPI, LIPRF, GLYHGB #### [address] [address] [employer]: Brandon Anaya MD Nitrite,Ur Negative Normal NEG [facility] Comment on above: Performed By: #### C DP, CP, LIP, TROPI, LIPRF, GLYHGB #### [address] [address] [employer]: Brandon Anaya MD pH (U) 5.5 [pH] Normal 5.0-8.0 [facility] Comment on above: Performed By: #### C DP, CP, LIP, TROPI, LIPRF, GLYHGB #### [address] [address] [employer]: Brandon Anaya MD Protein Ql (U) 1+ Abnormal NEG [facility] Comment on above: Performed By: #### C DP, CP, LIP, TROPI, LIPRF, GLYHGB #### [address] [place] [address] [employer]: Brandon Anaya MD Specific gravity (U) [Rel density] 1.086 High 1.005-1.030 [facility] Comment on above: Performed By: #### C DP, CP, LIP, TROPI, LIPRF, GLYHGB #### [address] [address] [employer]: Brandon Anaya MD Turbidity CLEAR Normal CLEAR [facility] Comment on above: Performed By: #### C DP, CP, LIP, TROPI, LIPRF, GLYHGB #### [address] [address] [employer]: Brandon Anaya MD Urobilinogen,Ur Normal Normal NORM [facility] Comment on above: Performed By: #### C DP, CP, LIP, TROPI, LIPRF, GLYHGB #### [address] [address] [employer]: Brandon Anaya MD Comment NOT REPORTED Normal [facility] Comment on above: Performed By: #### C DP, CP, LIP, TROPI, LIPRF, GLYHGB #### [address] [address] [employer]: Brandon Anaya MD URINALYSIS, MICROon 10-09-19 20 Amorphous, UA NOT REPORTED None [facility] Bacteria, UA NOT REPORTED None [facility] [place] Casts UA NOT REPORTED [facility] [place] Crystals, UA NOT REPORTED None /HPF [facility] Epithelial Cells UA 10 TO 20 [facility] [place] Mucus, UA NOT REPORTED None [place] Other Observations UA NOT REPORTED NOT REQ. M [place] RBC (U) [#/Vol] 0 TO 2 [place] Renal Epithelial, UA NOT REPORTED 0 /HPF Me [place] Trichomonas, UA NOT REPORTED None [place] WBC, UA 0 TO 2 [place] Yeast, UA NOT REPORTED None [place] ABDOMEN LIMITEDon 020 US ABDOMEN LIMITED EXAMINATION: RIGHT UPPER QUADRANT ULTRASOUND 10/09/2019 3:35 pm COMPARISON: None. HISTORY: ORDERING SYSTEM PROVIDED HISTORY: RUQ and epigastric pain, r/o cholecystitis, gall bladder, pancreas stave planer tender PROVIDED HISTORY: RUQ and epigastric pain, r/o cholecystitis, gall bladder, pancreas pathology Specify organ?->LIVER Specify organ?->GALLBLADDER Specify organ?->PANCREAS FINDINGS: LIVER: The liver demonstrates normal echogenicity without evidence of intrahepatic biliary ductal dilatation. BILIARY SYSTEM: Gallbladder is unremarkable without evidence of pericholecystic fluid, wall thickening or stones. Negative sonographic Hedz's sign. Common bile duct is within normal limits measuring 4 mm. RIGHT KIDNEY: The right kidney is grossly unremarkable without evidence of hydronephrosis. PANCREAS: Visualized portions of the pancreas are unremarkable. OTHER: No evidence of right upper quadrant ascites. IMPRESSION: Unremarkable right upper quadrant ultrasound. Interpreted by: Fransisco Ochoa MD Signed by: Fransisco Ochoa MD 10/09/19 Final result Normal [facility] US ABDOMEN LIMITED Specify o rgan? LIVER, GALLBLADDER, PANCREASon 10-09-2019 EXAMINATION: RIGHT U PPER QUADRANT ULTRASOUND 10/09/2019 3:35 pm COMPARISON: None. HISTORY: ORDERING SYSTEM PROVIDED HISTORY: RUQ and epigastric pain, r/o cholecystitis, gall bladder, pancreas stave planer tender PROVIDED HISTORY: RUQ and epigastric pain, r/o cholecystitis, gall bladder, pancreas pathology Specify organ?->LIVER Specify organ?->GALLBLADDER Specify organ?->PANCREAS FINDINGS: LIVER: The liver demonstrates normal echogenicity without evidence of intrahepatic biliary ductal dilatation. BILIARY SYSTEM: Gallbladder is unremarkable without evidence of pericholecystic fluid, wall thickening or stones. Negative sonographic Hdez's sign. Common bile duct is within normal limits measuring 4 mm. RIGHT KIDNEY: The right kidney is grossly unremarkable without evidence of hydronephrosis. PANCREAS: Visualized portions of the pancreas are unremarkable. OTHER: No evidence of right upper quadrant ascites. [place] Unremarkable right u pper quadrant ultrasound. [place] Prieto, Mhpn Incoming Radiant Results From [facility] - 10/09/2019 4:01 PM EDT EXAMINATION: RIGHT UPPER QUADRANT ULTRASOUND 10/09/2019 3:35 pm COMPARISON: None. HISTORY: ORDERING SYSTEM PROVIDED HISTORY: RUQ and epigastric pain, r/o cholecystitis, gall bladder, pancreas stave planer tender PROVIDED HISTORY: RUQ and epigastric pain, r/o cholecystitis, gall bladder, pancreas pathology Specify organ?->LIVER Specify organ?->GALLBLADDER Specify organ?->PANCREAS FINDINGS: LIVER: The liver demonstrates normal echogenicity without evidence of intrahepatic biliary ductal dilatation. BILIARY SYSTEM: Gallbladder is unremarkable without evidence of pericholecystic fluid, wall thickening or stones. Negative sonographic Hdez's sign. Common bile duct is within normal limits measuring 4 mm. RIGHT KIDNEY: The right kidney is grossly unremarkable without evidence of hydronephrosis. PANCREAS: Visualized portions of the pancreas are unremarkable. OTHER: No evidence of right upper quadrant ascites. IMPRESSION: Unremarkable right upper quadrant ultrasound. [place] Urinalysis Reflex to Culture on 10-09-2019 Bilirubin Urine Negative NEGATIVE [place] Color, UA YELLOW YELLOW [place] Glucose, Ur Negative NEGATIVE [place] Interpretation and review of laboratory results Abnormal [place] Ketones Ql (U) TRACE Abnormal NEGATIVE [place] Leukocyte esterase Test strip Ql (U) Negative NEGATIVE [place] Nitrite, Urine Negative NEGATIVE [place] pH, UA 5.5 [place] Protein (U) [Mass/Vol] 1+ Abnormal NEGATIVE [place] Specific [place], UA 1.086 High [place], [place] Turbidity UA CLEAR CLEAR [place] Urinalysis Comments NOT REPORTED [place] Urine Hgb Negative NEGATIVE [place] Urobilinogen, Urine Normal Normal [facility] [place] Urinalysis,Microon 0 ----- Normal [facility] Comment on above: Performed By: #### C DP, CP, LIP, TROPI, LIPRF, GLYHGB #### [facility] [employer] [address] [place] [address] [employer]: Brandon Anaya MD Epithelial cells LM.HPF (Urine sed) [#/Area] 10 TO 20 Normal 0-5 [facility] Comment on above: Performed By: #### C DP, CP, LIP, TROPI, LIPRF, GLYHGB #### [address] [address] [employer]: Brandon Anaya MD RBC (U) [#/Vol] 0 TO 2 Normal 0-2 [facility] Comment on above: Performed By: #### C DP, CP, LIP, TROPI, LIPRF, GLYHGB #### [address] [address] [employer]: Brandon Anaya MD WBC (U) [#/Vol] 0 TO 2 Normal 0-5 [facility] Comment on above: Performed By: #### C DP, CP, LIP, TROPI, LIPRF, GLYHGB #### [facility] [employer] [address] [place] [address] [employer]: Brandon Anaya MD Amorphous sediment LM Ql (Urine sed) NOT REPORTED Normal [facility] Comment on above: Performed By: #### C DP, CP, LIP, TROPI, LIPRF, GLYHGB #### [facility] [employer] [address] [place] [address] [employer]: Brandon Anaya MD Bacteria LM.HPF (Urine sed) [#/Area] NOT REPORTED Normal [facility] Comment on above: Performed By: #### C DP, CP, LIP, TROPI, LIPRF, GLYHGB #### [address] [address] [employer]: Brandon Anaya MD Casts LM.LPF (Urine sed) [#/Area] NOT REPORTED Normal 0-2 [facility] Comment on above: Performed By: #### C DP, CP, LIP, TROPI, LIPRF, GLYHGB #### [address] [address] [employer]: Brandon Anaya MD Crystals LM Nom (Urine sed) NOT REPORTED Normal NONE [facility] Comment on above: Performed By: #### C DP, CP, LIP, TROPI, LIPRF, GLYHGB #### [address] [address] [employer]: Brandon Anaya MD Epithelial, Renal NOT REPORTED Normal 0 [facility] Comment on above: Performed By: #### C DP, CP, LIP, TROPI, LIPRF, GLYHGB #### [address] [address] [employer]: Brandon Anaya MD Mucus Strands NOT REPORTED Normal NONE [facility] Comment on above: Performed By: #### C DP, CP, LIP, TROPI, LIPRF, GLYHGB #### [facility] [employer] [address] [place] [address] [employer]: Brandon Anaya MD Other Observations NOT REPORTED Normal NREQ [facility] Comment on above: Performed By: #### C DP, CP, LIP, TROPI, LIPRF, GLYHGB #### [facility] [address] [place] [address] [employer]: Brandon Anaya MD Trichomonas NOT REPORTED Normal NONE [facility] Comment on above: Performed By: #### C DP, CP, LIP, TROPI, LIPRF, GLYHGB #### [facility] [employer] [address] [place] [address] [employer]: Brandon Anaya MD Yeast LM Ql (Urine sed) NOT REPORTED Normal NONE [facility] Comment on above: Performed By: #### C DP, CP, LIP, TROPI, LIPRF, GLYHGB #### [email or web address] [place] [address] [employer]: Brandon Anaya MD XR ABDOMEN (KUB) (SINGLE AP VIEW)on 10-09-2019 XR ABDOMEN (KUB) (SINGLE AP VIEW) EXAMINATION: ONE SUPINE XRAY VIEW(S) OF THE ABDOMEN 10/09/2019 7:17 pm COMPARISON: None. HISTORY: ORDERING SYSTEM PROVIDED HISTORY: r/o SBO TECHNOLOGIST PROVIDED HISTORY: r/o SBO Reason for Exam: port Supine FINDINGS: Nonspecific, nonobstructive bowel gas pattern with paucity of bowel gas. Atherosclerotic calcifications. Retained contrast in the urinary bladder. No acute osseous abnormality. IMPRESSION: No evidence of bowel obstruction. Interpreted by: Naga Browning MD Signed by: Naga Browning MD 10/09/19 Final result Normal [facility] No evidence of bowel obstruction. [place] EXAMINATION: ONE SUP INE XRAY VIEW(S) OF THE ABDOMEN 10/09/2019 7:17 pm COMPARISON: None. HISTORY: ORDERING SYSTEM PROVIDED HISTORY: r/o SBO TECHNOLOGIST PROVIDED HISTORY: r/o SBO Reason for Exam: port Supine FINDINGS: Nonspecific, nonobstructive bowel gas pattern with paucity of bowel gas. Atherosclerotic calcifications. Retained contrast in the urinary bladder. No acute osseous abnormality. [place], [place] Prieto, Mhpn Incoming Radiant Results From [facility] - 10/09/2019 7:35 PM EDT EXAMINATION: ONE SUPINE XRAY VIEW(S) OF THE ABDOMEN 10/09/2019 7:17 pm COMPARISON: None. HISTORY: ORDERING SYSTEM PROVIDED HISTORY: r/o SBO TECHNOLOGIST PROVIDED HISTORY: r/o SBO Reason for Exam: port Supine FINDINGS: Nonspecific, nonobstructive bowel gas pattern with paucity of bowel gas. Atherosclerotic calcifications. Retained contrast in the urinary bladder. No acute osseous abnormality. IMPRESSION: No evidence of bowel obstruction. [facility] [place] [facility]2017 Aldosterone 4.8 ng/dL Normal [facility] Comment on above: Result Comment: (NOT E)INTERPRETIVE INFORMATION: Aldosterone, SerumReference intervals for age 15 and older:Upright ......... 4.0 - 31.0 ng/dLSupine .......... Less than or equal to 16.0 ng/dLUnspecified ..... Less than or equal to 31.0 ng/dLNormal serum levels of aldosterone are dependent on the sodiumintake and whether the patient is upright or supine. High sodiumintake will tend to suppress serum aldosterone, whereas low sodiumintake will elevate serum aldosterone. The reference intervals forserum aldosterone are based on normal sodium intake.Access complete set of age- and/or gender-specific referenceintervals for this test in the [employer] [facility] Test Directory(World Reviewer).Performed by [employer],[address] [place] [id number] pzd.World Reviewer, Nik Rosas MD, Lab. DirectorPerformed at [facility] [address] [place], [place] [id number] ([phone] Performed By: #### C ORTI ####[facility] [place] [address] #### AAANDRES, AREN ####[facility] [place] [address] Renin Activityon 07-02-2017 Renin Activity 0.1 ng/mL/hr Normal [facility] Comment on above: Result Comment: (NOT E)INTERPRETIVE INFORMATION: Renin ActivityAdult, Normal sodium diet: Supine ................. 0.2-1.6 ng/mL/hr Upright ................ 0.5-4.0 ng/mL/hrChildren, Normal sodium diet, Supine: Halls (1-7 days) ..... 2.0-35.0 ng/mL/hr Cord blood ............. 4.0-32.0 ng/mL/hr 1-12 mos ............... 2.4-37.0 ng/mL/hr 13 mos-3 yrs ........... 1.7-11.2 ng/mL/hr 4-5 yrs ................ 1.0- 6.5 ng/mL/hr 6-10 yrs ............... 0.5- 5.9 ng/mL/hr 11-15 yrs .............. 0.5- 3.3 ng/mL/hrChildren, normal sodium diet, Upright: 0-3 yrs ................ Not Available 4-5 yrs ................ Less than or equal to 15 ng/mL/hr 6-10 yrs ............... Less than or equal to 17 ng/mL/hr 11-15 yrs .............. Less than or equal to 16 ng/mL/hrPlasma renin activity measures enzyme ability to convertangiotensinogen to angiotensin I and is limited by theavailability of angiotensinogen. Plasma renin activity is not anaccurate indicator of enzyme activity when angiotensinogen isdecreased.See Compliance Statement D: www.[employer]/CSPerformed by [employer],[address] [place] [phone] diy.World Reviewer, Nik Rosas MD, Lab. DirectorPerformed at [facility] [address] [facility].[place], [place] [id number] ([phone] Performed By: #### Domenico ORTI ####[facility] [place], [place] [id number] #### MARYAM, AKIN ####[facility] [facility].[place], [place] [id number] Basic Metab w/rfx MGon 06-29 (cont.) Normal [facility] Comment on above: Result Comment: Aver age GFR for 70 or more years old: 75 mL/min/1.73sq mChronic Kidney Disease: <60 mL/min/1.73sq mKidney failure: <15 mL/min/1.73sq meGFR calculated using average adult body mass. Additional eGFR calculator available at:http://www.[employer]/multiple_crcl_2012.htmPerformed at [facility] [address] [place] [address] Performed By: #### C DP, BMPX, TROPI ####[address] [address] Anion gap 10 mmol/L Normal 9-17 [facility] Comment on above: Performed By: #### C DP, BMPX, TROPI ####[address] [address] Calcium 9.1 mg/dL Normal 8.6-10.4 [facility] Comment on above: Performed By: #### C DP, BMPX, TROPI ####[address] [address] Chloride 106 mmol/L Normal 98-107 [facility] Comment on above: Performed By: #### C DP, BMPX, TROPI ####[address] [address] CO2 26 mmol/L Normal 20-31 [facility] Comment on above: Performed By: #### C DP, BMPX, TROPI ####[address] [address] Creatinine 0.66 mg/dL Normal 0.50-0.90 [facility] Comment on above: Performed By: #### C DP, BMPX, TROPI ####[address] [place] [address] eGFR (non-black) mL/min/{1.73_m2} Normal >60 [facility] Comment on above: Performed By: #### C DP, BMPX, TROPI ####[address] [address] Glucose mass conc 104 mg/dL High 70-99 [facility] Comment on above: Performed By: #### C DP, BMPX, TROPI ####[address] [address] Potassium molar conc 4.1 mmol/L Normal 3.7-5.3 [facility] Comment on above: Performed By: #### C DP, BMPX, TROPI ####[address] [address] Sodium 142 mmol/L Normal 135-144 [facility] Comment on above: Performed By: #### C DP, BMPX, TROPI ####[address] [address] Urea nitrogen 13 mg/dL Normal 8-23 [facility] Comment on above: Performed By: #### C DP, BMPX, TROPI ####[address] [address] BUN/CRE Ratio NOT REPORTED Normal 9-20 [facility] Comment on above: Performed By: #### C DP, BMPX, TROPI ####[address] [address] Staging: NOT REPORTED Normal [facility] Comment on above: Performed By: #### C DP, BMPX, TROPI ####[address] [address] CBC with Diffon 06-29-2017 Abs. Basophil 0.00 k/uL Normal 0.0-0.2 [facility] Comment on above: Result Comment: Perf ormed at [facility] [address] [place] [address] Performed By: #### C DP, BMPX, TROPI ####[facility] [place] [address] Abs.Neutrophil (Seg) 3.80 k/uL Normal 1.3-9.1 [facility] Comment on above: Performed By: #### C DP, BMPX, TROPI ####[address] [address] Basophils/100 WBC Auto (Bld) 1 % Normal 0-2 [facility] Comment on above: Performed By: #### C DP, BMPX, TROPI ####[facility] [place] [address] Eosinophils 0.20 10*3/uL Normal 0.0-0.4 [facility] Comment on above: Performed By: #### C DP, BMPX, TROPI ####[facility] [place] [address] Eosinophils/100 leukocytes 2 % Normal 0-4 [facility] Comment on above: Performed By: #### C DP, BMPX, TROPI ####[facility] [place] [address] Erythrocyte distribution width Auto Ratio (RBC) 14.5 % Normal 11.5-14.9 [facility] Comment on above: Performed By: #### C DP, BMPX, TROPI ####[address] [address] Erythrocytes (RBC) 4.36 10*6/uL Normal 4.0-5.2 [facility] Comment on above: Performed By: #### C DP, BMPX, TROPI ####[facility] [place] [address] Hematocrit (HCT) 38.3 % Normal 36-46 [facility] Comment on above: Performed By: #### C DP, BMPX, TROPI ####[facility] [place] [address] Hemoglobin mass conc (Bld) 12.9 g/dL Normal 12.0-16.0 [facility] Comment on above: Performed By: #### C DP, BMPX, TROPI ####[address] [address] Lymphocytes 2.20 10*3/uL Normal 1.0-4.8 [facility] Comment on above: Performed By: #### C DP, BMPX, TROPI ####[address] [address] Lymphocytes/100 leukocytes 32 % Normal 24-44 [facility] Comment on above: Performed By: #### C DP, BMPX, TROPI ####[facility] [place] [address] MCH 29.5 pg Normal 26-34 [facility] Comment on above: Performed By: #### C DP, BMPX, TROPI ####[address] [address] MCHC mass conc (RBC) 33.6 g/dL Normal 31-37 [facility] Comment on above: Performed By: #### C DP, BMPX, TROPI ####[facility] [place] [address] MCV 87.8 fL Normal 80-100 [facility] Comment on above: Performed By: #### C DP, BMPX, TROPI ####[facility] [place] [address].[place] [address] Monocytes 0.50 10*3/uL Normal 0.1-1.3 [facility] Comment on above: Performed By: #### C DP, BMPX, TROPI ####[facility] [place] [address] Monocytes/100 leukocytes 8 % High 1-7 [facility] Comment on above: Performed By: #### C DP, BMPX, TROPI ####[address] [address] Neutrophil (Seg) 57 % Normal 36-66 [facility] Comment on above: Performed By: #### C DP, BMPX, TROPI ####[address] [address] Platelet mean volume (PMV) 8.5 fL Normal 6.0-12.0 [facility] Comment on above: Performed By: #### C DP, BMPX, TROPI ####[address] [address] Platelets 219 10*3/uL Normal 150-450 [facility] Comment on above: Performed By: #### C DP, BMPX, TROPI ####[facility] [place] [address] WBC (Leukocytes) 6.7 10*3/uL Normal 3.5-11.0 [facility] Comment on above: Performed By: #### C DP, BMPX, TROPI ####[address] [address] Auto Diff Performed NOT REPORTED Normal [facility] Comment on above: Performed By: #### C DP, BMPX, TROPI ####[address] [address] [facility] [place] [address] Erythrocyte morphology NOT REPORTED Normal [facility] Comment on above: Performed By: #### C DP, BMPX, TROPI ####[facility] [place] [address].[place] [address] Erythrocytes (RBC) NOT REPORTED Normal [facility] Comment on above: Performed By: #### C DP, BMPX, TROPI ####[address] [place] [address] Granulocytes/100 WBC (Bld) NOT REPORTED Normal 0.00-0.30 [facility] Comment on above: Performed By: #### C DP, BMPX, TROPI ####[address] [place] [address] Immature granulocytes #/vol (Bld) NOT REPORTED Normal 0 [facility] Comment on above: Performed By: #### C DP, BMPX, TROPI ####[address] [place] [address] Platelets NOT REPORTED Normal [facility] Comment on above: Performed By: #### C DP, BMPX, TROPI ####[address] [place] [address] WBC Morphology NOT REPORTED Normal [facility] Comment on above: Performed By: #### C DP, BMPX, TROPI ####[address] [place] [address] Troponinon 06-29-2017 Troponin I.cardiac mass conc Normal [facility] Comment on above: Result Comment: Refe rence Range: <0.03 Within reference range. 0.03-0.09 Possible myocardial damage.Repeat at appropriate intervals to rule out chronic elevation. >= 0.10 Indicative of myocardial damage.Patients with high levels of Biotin oral intake (i.e >5mg/day) may have falsely decreased Troponin T levels. Samples collected within 8 hours of biotin intake may require additional information for diagnosis.Performed at [address] [address] Performed By: #### C DP, BMPX, TROPI ####[address] [address] Troponin T.cardiac mass conc ug/L Normal <0.03 [facility] Comment on above: Result Comment: Trop onin T results cannot be compared to Troponin-I results. Performed By: #### C DP, BMPX, TROPI ####[address] [address] Troponin I.cardiac mass conc Normal [facility] Comment on above: Result Comment: Refe rence Range: <0.03 Within reference range. 0.03-0.09 Possible myocardial damage.Repeat at appropriate intervals to rule out chronic elevation. >= 0.10 Indicative of myocardial damage.Patients with high levels of Biotin oral intake (i.e >5mg/day) may have falsely decreased Troponin T levels. Samples collected within 8 hours of biotin intake may require additional information for diagnosis.Performed at [address] [address] Performed By: #### T ROPI ####[address] [address] Troponin T.cardiac mass conc ug/L Normal <0.03 [facility] Comment on above: Result Comment: Trop onin T results cannot be compared to Troponin-I results. Performed By: #### T ROPI ####[address] [address] XR CHEST (2 VW)on 06-29-2017 XR CHEST (2 VW) EXAMINATION:TWO VIEW S OF THE CHEST, 06/27/2017 9:59 pmCOMPARISON:NoneHISTORY :ORDERING SYSTEM PROVIDED HISTORY: arrhythmiaTECHNOLOGIST PROVIDED HISTORY:Reason for exam:->arrhythmiaOrderin g Physician Provided Reason for Exam: arrhythmiaAcuity: AcuteType of Exam: InitialFINDINGS:There is nonspecific mild interstitial prominence, possibly representingCOPD. No pneumothorax. Minimal opacities at the bases may representatelectasis. Otherwise no other focal lung opacity. Calcified thoracicaorta. Borderline cardiomegaly. Bony demineralization. Mild degenerativechanges of the thoracic spine. Otherwise no definite acute osseusabnormality.IMPRES TANG: Possible COPD. Minimal bibasilar opacities may reflect atelectasis. Mildcardiomegaly. Otherwise no acute cardiopulmonary findings.Interpreted by:FABIANA Oliverigned by:Zaire Dominguez MD//18Final result Normal [facility] Basic Metab w/rfx MGon 06-28 (cont.) Normal [facility] Comment on above: Result Comment: Aver age GFR for 70 or more years old: 75 mL/min/1.73sq mChronic Kidney Disease: <60 mL/min/1.73sq mKidney failure: <15 mL/min/1.73sq meGFR calculated using average adult body mass. Additional eGFR calculator available at:http://www.[employer]/multiple_crcl_2012.htmPerformed at [facility] [address] [place] [address] Performed By: #### C DP, BMPX ####[address] [place] [address] Anion gap 13 mmol/L Normal 9-17 [facility] Comment on above: Performed By: #### C DP, BMPX ####[facility] [place] [address] Calcium 8.7 mg/dL Normal 8.6-10.4 [facility] Comment on above: Performed By: #### C DP, BMPX ####[address] [place] [address] Chloride 106 mmol/L Normal 98-107 [facility] Comment on above: Performed By: #### C DP, BMPX ####[facility] [place] [address].[place] [address] CO2 22 mmol/L Normal 20-31 [facility] Comment on above: Performed By: #### C DP, BMPX ####[facility] [place] [address] Creatinine 0.53 mg/dL Normal 0.50-0.90 [facility] Comment on above: Performed By: #### C DP, BMPX ####[address] [address] eGFR (non-black) mL/min/{1.73_m2} Normal >60 [facility] Comment on above: Performed By: #### C DP, BMPX ####[address] [address] Glucose mass conc 168 mg/dL High 70-99 [facility] Comment on above: Performed By: #### C DP, BMPX ####[facility] [place] [address] Potassium molar conc 3.7 mmol/L Normal 3.7-5.3 [facility] Comment on above: Performed By: #### C DP, BMPX ####[facility] [place] [address] Sodium 141 mmol/L Normal 135-144 [facility] Comment on above: Performed By: #### C DP, BMPX ####[facility] [place] [address] Urea nitrogen 11 mg/dL Normal 8-23 [facility] Comment on above: Performed By: #### C DP, BMPX ####[facility] [facility] [place] [address] BUN/CRE Ratio NOT REPORTED Normal 9-20 [facility] Comment on above: Performed By: #### C DP, BMPX ####[facility] [place] [address] Staging: NOT REPORTED Normal [facility] Comment on above: Performed By: #### C DP, BMPX ####[facility] [place] [address] Basic Metabolic Profon 06-28 (cont.) Normal [facility] Comment on above: Result Comment: Aver age GFR for 70 or more years old: 75 mL/min/1.73sq mChronic Kidney Disease: <60 mL/min/1.73sq mKidney failure: <15 mL/min/1.73sq meGFR calculated using average adult body mass. Additional eGFR calculator available at:http://www.[employer]/multiple_crcl_2012.htmPerformed at [facility] [address] [place] [address] Performed By: #### C DP, BMP, TROPI, TSHX ####[facility] [place] [address] Anion gap 13 mmol/L Normal 9-17 [facility] Comment on above: Performed By: #### C DP, BMP, TROPI, TSHX ####[facility] [place] [address] Calcium 9.2 mg/dL Normal 8.6-10.4 [facility] Comment on above: Performed By: #### C DP, BMP, TROPI, TSHX ####[facility] [place] [address] Chloride 102 mmol/L Normal 98-107 [facility] Comment on above: Performed By: #### C DP, BMP, TROPI, TSHX ####[facility] [facility] [place] [address] CO2 26 mmol/L Normal 20-31 [facility] Comment on above: Performed By: #### C DP, BMP, TROPI, TSHX ####[facility] [place] [address] Creatinine 0.61 mg/dL Normal 0.50-0.90 [facility] Comment on above: Performed By: #### C DP, BMP, TROPI, TSHX ####[address] [address] eGFR (non-black) mL/min/{1.73_m2} Normal >60 [facility] Comment on above: Performed By: #### C DP, BMP, TROPI, TSHX ####[address] [address] Glucose mass conc 108 mg/dL High 70-99 [facility] Comment on above: Performed By: #### C DP, BMP, TROPI, TSHX ####[address] [address] Potassium molar conc 4.7 mmol/L Normal 3.7-5.3 [facility] Comment on above: Performed By: #### C DP, BMP, TROPI, TSHX ####[facility] [place] [address] Sodium 141 mmol/L Normal 135-144 [facility] Comment on above: Performed By: #### C DP, BMP, TROPI, TSHX ####[address] [address] Urea nitrogen 16 mg/dL Normal 8-23 [facility] Comment on above: Performed By: #### C DP, BMP, TROPI, TSHX ####[facility] [place] [address] BUN/CRE Ratio NOT REPORTED Normal 9-20 [facility] Comment on above: Performed By: #### C DP, BMP, TROPI, TSHX ####[facility] [place] [address] Staging: NOT REPORTED Normal [facility] Comment on above: Performed By: #### C DP, BMP, TROPI, TSHX ####[facility] [place] [address] CBC with Diffon 06-28-2017 Abs. Basophil 0.00 k/uL Normal 0.0-0.2 [facility] Comment on above: Result Comment: Perf ormed at [facility] [address] [place] [address] Performed By: #### C DP, BMPX ####[facility] [place] [address] Abs.Neutrophil (Seg) 5.50 k/uL Normal 1.3-9.1 [facility] Comment on above: Performed By: #### C DP, BMPX ####[address] [address] Basophils/100 WBC Auto (Bld) 1 % Normal 0-2 [facility] Comment on above: Performed By: #### C DP, BMPX ####[facility] [place] [address] Eosinophils 0.10 10*3/uL Normal 0.0-0.4 [facility] Comment on above: Performed By: #### C DP, BMPX ####[address] [address] Eosinophils/100 leukocytes 2 % Normal 0-4 [facility] Comment on above: Performed By: #### C DP, BMPX ####[facility] [place] [address] Erythrocyte distribution width Auto Ratio (RBC) 14.8 % Normal 11.5-14.9 [facility] Comment on above: Performed By: #### C DP, BMPX ####[facility] [place] [address] Erythrocytes (RBC) 4.47 10*6/uL Normal 4.0-5.2 [facility] Comment on above: Performed By: #### C DP, BMPX ####[facility] [place] [address] Hematocrit (HCT) 39.8 % Normal 36-46 [facility] Comment on above: Performed By: #### C DP, BMPX ####[facility] [place] [address] Hemoglobin mass conc (Bld) 13.3 g/dL Normal 12.0-16.0 [facility] Comment on above: Performed By: #### C DP, BMPX ####[facility] [facility] [place] [address] Lymphocytes 1.90 10*3/uL Normal 1.0-4.8 [facility] Comment on above: Performed By: #### C DP, BMPX ####[facility] [place] [address] Lymphocytes/100 leukocytes 23 % Low 24-44 [facility] Comment on above: Performed By: #### C DP, BMPX ####[facility] [place] [address] MCH 29.7 pg Normal 26-34 [facility] Comment on above: Performed By: #### C DP, BMPX ####[facility] [place] [address] MCHC mass conc (RBC) 33.3 g/dL Normal 31-37 [facility] Comment on above: Performed By: #### C DP, BMPX ####[facility] [place] [address] MCV 89.1 fL Normal 80-100 [facility] Comment on above: Performed By: #### C DP, BMPX ####[facility] [place] [address] Monocytes 0.50 10*3/uL Normal 0.1-1.3 [facility] Comment on above: Performed By: #### C DP, BMPX ####[address] [address] Monocytes/100 leukocytes 6 % Normal 1-7 [facility] Comment on above: Performed By: #### C DP, BMPX ####[address] [address] Neutrophil (Seg) 68 % High 36-66 [facility] Comment on above: Performed By: #### C DP, BMPX ####[address] [address] Platelet mean volume (PMV) 8.6 fL Normal 6.0-12.0 [facility] Comment on above: Performed By: #### C DP, BMPX ####[address] [address] Platelets 238 10*3/uL Normal 150-450 [facility] Comment on above: Performed By: #### C DP, BMPX ####[address] [address] WBC (Leukocytes) 8.0 10*3/uL Normal 3.5-11.0 [facility] Comment on above: Performed By: #### C DP, BMPX ####[facility] [place] [address] Auto Diff Performed NOT REPORTED Normal [facility] Comment on above: Performed By: #### C DP, BMPX ####[facility] [place] [address] Erythrocyte morphology NOT REPORTED Normal [facility] Comment on above: Performed By: #### C DP, BMPX ####[facility] [place] [address] [place] [address] Erythrocytes (RBC) NOT REPORTED Normal [facility] Comment on above: Performed By: #### C DP, BMPX ####[facility] [place] [address].[place] [address] Granulocytes/100 WBC (Bld) NOT REPORTED Normal 0.00-0.30 [facility] Comment on above: Performed By: #### C DP, BMPX ####[address] [address] Immature granulocytes #/vol (Bld) NOT REPORTED Normal 0 [facility] Comment on above: Performed By: #### C DP, BMPX ####[facility] [place] [address].[place] [address] Platelets NOT REPORTED Normal [facility] Comment on above: Performed By: #### C DP, BMPX ####[address] [address] WBC Morphology NOT REPORTED Normal [facility] Comment on above: Performed By: #### C DP, BMPX ####[address] [place] [address] Abs. Basophil 0.10 k/uL Normal 0.0-0.2 [facility] Comment on above: Result Comment: Perf ormed at [facility] [address] [place] [address] Performed By: #### C DP, BMP, TROPI, TSHX ####[facility] [facility] [place] [address] Abs.Neutrophil (Seg) 4.20 k/uL Normal 1.3-9.1 [facility] Comment on above: Performed By: #### C DP, BMP, TROPI, TSHX ####[facility] [place] [address].[place] [address] Basophils/100 WBC Auto (Bld) 1 % Normal 0-2 [facility] Comment on above: Performed By: #### C DP, BMP, TROPI, TSHX ####[facility] [place] [address] Eosinophils 0.20 10*3/uL Normal 0.0-0.4 [facility] Comment on above: Performed By: #### C DP, BMP, TROPI, TSHX ####[facility] [place] [address].[place] [address] Eosinophils/100 leukocytes 2 % Normal 0-4 [facility] Comment on above: Performed By: #### C DP, BMP, TROPI, TSHX ####[facility] [place] [address] Erythrocyte distribution width Auto Ratio (RBC) 14.7 % Normal 11.5-14.9 [facility] Comment on above: Performed By: #### C DP, BMP, TROPI, TSHX ####[facility] [place] [address] Erythrocytes (RBC) 4.38 10*6/uL Normal 4.0-5.2 [facility] Comment on above: Performed By: #### C DP, BMP, TROPI, TSHX ####[address] [address] Hematocrit (HCT) 38.7 % Normal 36-46 [facility] Comment on above: Performed By: #### C DP, BMP, TROPI, TSHX ####[address] [address] Hemoglobin mass conc (Bld) 12.9 g/dL Normal 12.0-16.0 [facility] Comment on above: Performed By: #### C DP, BMP, TROPI, TSHX ####[address] [address] Lymphocytes 2.60 10*3/uL Normal 1.0-4.8 [facility] Comment on above: Performed By: #### C DP, BMP, TROPI, TSHX ####[address] [address] Lymphocytes/100 leukocytes 34 % Normal 24-44 [facility] Comment on above: Performed By: #### C DP, BMP, TROPI, TSHX ####[address] [address] MCH 29.6 pg Normal 26-34 [facility] Comment on above: Performed By: #### C DP, BMP, TROPI, TSHX ####[address] [address] MCHC mass conc (RBC) 33.4 g/dL Normal 31-37 [facility] Comment on above: Performed By: #### C DP, BMP, TROPI, TSHX ####[address] [address] MCV 88.4 fL Normal 80-100 [facility] Comment on above: Performed By: #### C DP, BMP, TROPI, TSHX ####[facility] [place] [address].[place] [address] Monocytes 0.60 10*3/uL Normal 0.1-1.3 [facility] Comment on above: Performed By: #### C DP, BMP, TROPI, TSHX ####[address] [address] Monocytes/100 leukocytes 8 % High 1-7 [facility] Comment on above: Performed By: #### C DP, BMP, TROPI, TSHX ####[address] [address] Neutrophil (Seg) 55 % Normal 36-66 [facility] Comment on above: Performed By: #### C DP, BMP, TROPI, TSHX ####[facility] [place] [address] Platelet mean volume (PMV) 8.6 fL Normal 6.0-12.0 [facility] Comment on above: Performed By: #### C DP, BMP, TROPI, TSHX ####[facility] [place] [address] Platelets 229 10*3/uL Normal 150-450 [facility] Comment on above: Performed By: #### C DP, BMP, TROPI, TSHX ####[facility] [place] [address] WBC (Leukocytes) 7.7 10*3/uL Normal 3.5-11.0 [facility] Comment on above: Performed By: #### C DP, BMP, TROPI, TSHX ####[address] [place] [address] Auto Diff Performed NOT REPORTED Normal [facility] Comment on above: Performed By: #### C DP, BMP, TROPI, TSHX ####[facility] [facility] [place] [address] Erythrocyte morphology NOT REPORTED Normal [facility] Comment on above: Performed By: #### C DP, BMP, TROPI, TSHX ####[facility] [place] [address].[place] [address] Erythrocytes (RBC) NOT REPORTED Normal [facility] Comment on above: Performed By: #### C DP, BMP, TROPI, TSHX ####[facility] [place] [address].[place] [address] Granulocytes/100 WBC (Bld) NOT REPORTED Normal 0.00-0.30 [facility] Comment on above: Performed By: #### C DP, BMP, TROPI, TSHX ####[facility] [place] [address] Immature granulocytes #/vol (Bld) NOT REPORTED Normal 0 [facility] Comment on above: Performed By: #### C DP, BMP, TROPI, TSHX ####[facility] [place] [address].[place] [address] Platelets NOT REPORTED Normal [facility] Comment on above: Performed By: #### C DP, BMP, TROPI, TSHX ####[facility] [place] [address].[place] [address] WBC Morphology NOT REPORTED Normal [facility] Comment on above: Performed By: #### C DP, BMP, TROPI, TSHX ####[facility] [place] [address] Cortisolon 06-28-2017 Cortisol 4.7 ug/dL Normal 2.7-18.4 [facility] Comment on above: Result Comment: Lukasz isol Reference Range: AM 6.0-18.4 PM 2.7-10.5Performed at [facility] [address] [place] [address] Performed By: #### C ORTI ####[address] [address] #### AALD, AREN ####[address] [address] Collection Info. NOT REPORTED Normal [facility] Comment on above: Performed By: #### C ORTI ####[address] [address] #### AALD, AREN ####[address] [place] [address] Renin Activityon 06-28-2017 Comment: NOT REPORTED Normal [facility] Comment on above: Performed By: #### C ORTI ####[address] [address] #### AALD, AREN ####[address] [address] TSH w/reflex to FT4on 2017 Thyroid stimulating hormone (TSH) 2.65 m[IU]/L Normal 0.30-5.00 [facility] Comment on above: Result Comment: Perf ormed at [facility] [address] [place] [address] Performed By: #### C DP, BMP, TROPI, TSHX ####[facility] [place] [address] Troponinon 06-28-2017 Troponin I.cardiac mass conc Normal [facility] Comment on above: Result Comment: Refe rence Range: <0.03 Within reference range. 0.03-0.09 Possible myocardial damage.Repeat at appropriate intervals to rule out chronic elevation. >= 0.10 Indicative of myocardial damage.Patients with high levels of Biotin oral intake (i.e >5mg/day) may have falsely decreased Troponin T levels. Samples collected within 8 hours of biotin intake may require additional information for diagnosis.Performed at [facility] [address] [place] [address] Performed By: #### T ROPI ####[address] [address] Troponin T.cardiac mass conc ug/L Normal <0.03 [facility] Comment on above: Result Comment: Trop onin T results cannot be compared to Troponin-I results. Performed By: #### T ROPI ####[address] [place] [address] Troponin I.cardiac mass conc Normal [facility] Comment on above: Result Comment: Refe rence Range: <0.03 Within reference range. 0.03-0.09 Possible myocardial damage.Repeat at appropriate intervals to rule out chronic elevation. >= 0.10 Indicative of myocardial damage.Patients with high levels of Biotin oral intake (i.e >5mg/day) may have falsely decreased Troponin T levels. Samples collected within 8 hours of biotin intake may require additional information for diagnosis.Performed at [address] [place] [address] Performed By: #### T ROPI ####[address] [place] [address] Troponin T.cardiac mass conc ug/L Normal <0.03 [facility] Comment on above: Result Comment: Trop onin T results cannot be compared to Troponin-I results. Performed By: #### T ROPI ####[address] [address] Troponin I.cardiac mass conc Normal [facility] Comment on above: Result Comment: Refe rence Range: <0.03 Within reference range. 0.03-0.09 Possible myocardial damage.Repeat at appropriate intervals to rule out chronic elevation. >= 0.10 Indicative of myocardial damage.Patients with high levels of Biotin oral intake (i.e >5mg/day) may have falsely decreased Troponin T levels. Samples collected within 8 hours of biotin intake may require additional information for diagnosis.Performed at [address] [address] Performed By: #### C DP, BMP, TROPI, TSHX ####[address] [address] Troponin T.cardiac mass conc ug/L Normal <0.03 [facility] Comment on above: Result Comment: Trop onin T results cannot be compared to Troponin-I results. Performed By: #### C DP, BMP, TROPI, TSHX ####[address] [address] UA w/Reflex Cultureon 2017 Acetaminophen mass conc Negative Normal NEG [facility] Comment on above: Performed By: #### U AX ####[address] [address] Bilirubin (direct) Negative Normal NEG [facility] Comment on above: Performed By: #### U AX ####[address] [address] Comment Microscopic exam not performed based on chemical results unless requested in Normal [facility] Comment on above: Result Comment: orig inal order.Performed at [address] [address] Performed By: #### U AX ####[address] [address] Hemoglobin mass conc (Bld) Negative Normal NEG [facility] Comment on above: Performed By: #### U AX ####[facility] [place] [address] [place] [address] Nitrite,Ur Negative Normal NEG [facility] Comment on above: Performed By: #### U AX ####[facility] [place] [address], [place] [address] Turbidity CLEAR Normal CLEAR [facility] Comment on above: Performed By: #### U AX ####[facility] [place] [address] [place] [address] Urine, color YELLOW Normal YEL [facility] Comment on above: Performed By: #### U AX ####[address] [place] [address] Urine, glucose presence Negative Normal NEG [facility] Comment on above: Performed By: #### U AX ####[address] [place] [address] Urine, leukocyte esterase presence Negative Normal NEG [facility] Comment on above: Performed By: #### U AX ####[address] [place] [address] Urine, pH 5.5 [pH] Normal 5.0-8.0 [facility] Comment on above: Performed By: #### U AX ####[address] [place] [address] Urine, protein presence Negative Normal NEG [facility] Comment on above: Performed By: #### U AX ####[address] [place] [address] Urine, specific gravity 1.011 Normal 1.000-1.030 [facility] Comment on above: Performed By: #### U AX ####[address] [place] [address] Urobilinogen,Ur Normal Normal NORM [facility] Comment on above: Performed By: #### U AX ####[facility] [place] [address] Vital Signs Date Time Vital Sign Value Performing Clinician Facility 04-08-2023 10:25-0500 Body height 162.56 cm MD Adina Bunch Work Phone: [facility] 04-08-2023 10:25-0500 Body mass index (BMI) [Ratio] 26.7 kg/m2 MD Adina Bunch Work Phone: [facility] 04-08-2023 10:25-0500 Body weight 70.76 kg MD Adina Bunch Work Phone: [facility] 10-16-2019 15:45-0400 BP Diastolic 64 mm[Hg] [place], [place] 10-16-2019 15:45-0400 BP Systolic 154 mm[Hg] [place] 10-16-2019 08:25-0400 Body Temperature 98.01 [degF] [place], [place] 10-16-2019 08:25-0400 Pulse (Heart Rate) 70 /min [place], [place] 10-16-2019 08:25-0400 Pulse Oximetry 97 % [place] 10-16-2019 08:25-0400 Respiratory Rate 20 /min [place] 10-16-2019 06:15-0400 BMI (Body Mass Index) 25.51 kg/m2 [place] 10-16-2019 06:15-0400 Body weight 67.4 kg [place] 10-15-2019 15:22-0400 Height 162.6 cm [place] 10-13-2019 16:07-0400 Respiratory rate NOT REPORTED [facility] Comment on above: Performed By: #### CDP, CP, LIP, TROPI, LIPRF, GLYHGB #### [facility] [id number] [employer]: Brandon Anaya MD 10-13-2019 14:24-0400 Respiratory rate NOT REPORTED Y[facility] [place] Encounters Encounter Date Encounter Type Care Provider Facility Start: 04-24-2023 End: 04-24-2023 ambulatory Anju Lees Facility:[facility] Start: 04-17-2023 End: 04-17-2023 ambulatory CURRY A PETITTI Not Available Start: 04-17-2023 End: 04-17-2023 ambulatory MD Adina Bunch Work Phone: [facility] Work Phone: Start: 04-17-2023 End: 04-17-2023 Patient encounter procedure MD Adina Bunch Work Phone: [facility] Work Phone: Start: 04-08-2023 End: 04-08-2023 ambulatory MD Adina Bunch Work Phone: [facility] Work Phone: Start: 04-08-2023 End: 04-08-2023 Patient encounter procedure MD Adina Bunch Work Phone: [facility] Work Phone: Start: 04-08-2023 End: 04-08-2023 ambulatory MD Adina Bunch Work Phone: [facility] Work Phone: Start: 04-08-2023 End: 04-08-2023 Patient encounter procedure MD Adina Bunch Work Phone: [facility] Start: 02-13-2023 End: 02-13-2023 ambulatory DENISHA A FELTER Not Available Start: 01-15-2023 End: 01-15-2023 ambulatory CURRY A PETITTI Not Available Start: 01-06-2023 End: 01-06-2023 ambulatory CURRY LOVING Not Available Start: 01-06-2023 End: 01-06-2023 ambulatory WENDY OCHOA Not Available Start: 06-17-[address] ADINA BUNCH . Facili ty:H1 Start: 05-29-2022 End: 05-30-[address] ADINA BUNCH . Facility:[facility] Start: 03-07-2022 End: 04-20-[address] ADINA BUNCH . Facility:[facility] Start: 02-06-2022 End: 02-06-[address] ADINA BUNCH . Facility:[facility] Start: 11-16-[address] ADINA BUNCH . Facili ty:[facility]1 Start: 10-09-2019 End: 10-16-2019 Evaluation and management of inpatient DUGLAS S JUDIE [facility] Start: 10-09-2019 End: 10-16-2019 Evaluation and management of inpatient Yoon Barnhart Rogelio Work Phone: [facility] 2 Comment on above: Abdominal aortic ane urysm (AAA) without rupture (HCC) (Primary Dx); Acute low back pain, unspecified back pain laterality, unspecified whether sciatica present; Vertigo; Nausea and vomiting, intractability of vomiting not specified, unspecified vomiting type; Hypertensive urgency Start: 06-27-2017 End: 06-29-2017 Evaluation and management of inpatient ADINA M [facility] Procedures Date Procedure Procedure Detail Performing Clinician Start: 04-08-2023 Plain X-ray of right hand MD Adina Bunch Work Phone: Start: 10-16-2019 Blood count complete auto&auto difrntl wbc DUGLAS JUDIE Start: 10-16-2019 Comprehensive metabo lic panel DUGLAS JUDIE Start: 10-16-2019 Culture bacterial quanttative colony count urine DUGLAS JUDIE Start: 10-16-2019 Urnls dip stick/tabl et reagent auto microscopy DUGLAS JUDIE Start: 10-16-2019 Glucose blood reagen t strip DUGLAS JUDIE Start: 10-16-2019 DISCHARGE PATIENT RANVI R JUDIE Start: 10-16-2019 Urnls dip stick/tabl et reagent auto microscopy Flory Bazan Work Phone: Start: 10-16-2019 IP CONSULT TO HOME C ARE NEEDS DUGLAS JUDIE Start: 10-16-2019 Glucose blood reagen t strip Duglas S Judie Work Phone: Start: 10-16-2019 BLADDER SCAN DUGLAS RAT HORE Start: 10-16-2019 IP CONSULT TO UROLOGY R ANVIR JUDIE Start: 10-16-2019 Gluc bld gluc mntr d ev cleared fda spec home use DUGLAS JUDIE Start: 10-16-2019 Glucose blood reagen t strip DUGLAS JUDIE Start: 10-16-2019 INITIATE OXYGEN THER APY PROTOCOL DUGLAS JUDIE Start: 10-16-2019 End: 10-16-2019 Glucose blood reagent strip Duglas S Judie Work Phone: Start: 10-16-2019 Blood count complete auto&auto difrntl wbc DUGLAS JUDIE Start: 10-16-2019 Comprehensive metabo lic panel DUGLAS JUDIE Start: 10-16-2019 Gluc bld gluc mntr d ev cleared fda spec home use DUGLAS JUDIE Start: 10-16-2019 BASIC METABOLIC PANE L W/ REFLEX TO MG FOR LOW K Muralikrishna Porandla Work Phone: Start: 10-16-2019 Blood count complete auto&auto difrntl wbc Muralikrishna Porandla Work Phone: Start: 10-16-2019 INTAKE AND OUTPUT RANVI R JUDIE Start: 10-16-2019 Gluc bld gluc mntr d ev cleared fda spec home use DUGLAS JUDIE Start: 10-15-2019 Glucose blood reagen t strip DUGLAS JUDIE Start: 10-15-2019 Gluc bld gluc mntr d ev cleared fda spec home use DUGLAS JUDIE Start: 10-15-2019 Glucose blood reagen t strip Duglas S Judie Work Phone: Start: 10-15-2019 Glucose blood reagen t strip DUGLAS JUDIE Start: 10-15-2019 STRAIGHT CATH DUGLAS RA THORE Start: 10-15-2019 DIETARY NUTRITION SUPPLEMENTS DUGLAS JUDIE Start: 10-15-2019 Mri spinal canal lum bar w/o & w/contr matrl DUGLAS JUDIE Start: 10-15-2019 Glucose blood reagen t strip Duglas S Judie Work Phone: Start: 10-15-2019 Mri spinal canal lum bar w/o & w/contr matrl Denys Porandla Work Phone: Start: 10-15-2019 Glucose blood reagen t strip DUGLAS JUDIE Start: 10-15-2019 Glucose blood reagen t strip Duglas S Judie Work Phone: Start: 10-15-2019 Blood count complete auto&auto difrntl wbc DUGLAS JUDIE Start: 10-15-2019 Comprehensive metabo lic panel DUGLAS JUDIE Start: 10-15-2019 Gluc bld gluc mntr d ev cleared fda spec home use DUGLAS JUDIE Start: 10-15-2019 STRAIGHT CATH DUGLAS RA THORE Start: 10-15-2019 BASIC METABOLIC PANE L W/ REFLEX TO MG FOR LOW K Ivonnena Porandla Work Phone: Start: 10-15-2019 Blood count complete auto&auto difrntl wbc Denys Mcmanusandla Work Phone: Start: 10-15-2019 IP CONSULT TO IV TEAM R ANVIR JUDIE Start: 10-15-2019 INITIATE OXYGEN THER APY PROTOCOL DUGLAS JUDIE Start: 10-15-2019 Glucose blood reagen t strip DUGLAS JUDIE Start: 10-15-2019 Glucose blood reagen t strip Duglsa S Judie Work Phone: Start: 10-15-2019 Gluc bld gluc mntr d ev cleared fda spec home use DUGLAS JUDIE Start: 10-15-2019 INTAKE AND OUTPUT RANVI R JUDIE Start: 10-15-2019 Gluc bld gluc mntr d ev cleared fda spec home use DUGLAS JUDIE Start: 10-14-2019 Glucose blood reagen t strip DUGLAS JUDIE Start: 10-14-2019 Gluc bld gluc mntr d ev cleared fda spec home use DUGLAS JUDIE Start: 10-14-2019 Glucose blood reagen t strip Duglas S Judie Work Phone: Start: 10-14-2019 STRAIGHT CATH DUGLAS RA THORE Start: 10-14-2019 Glucose blood reagen t strip Duglas S Judie Work Phone: Start: 10-14-2019 Glucose blood reagen t strip DULGAS JUDIE Start: 10-14-2019 Glucose blood reagen t strip Duglas S Judie Work Phone: Start: 10-14-2019 Gluc bld gluc mntr d ev cleared fda spec home use DUGLAS JUDIE Start: 10-14-2019 INITIATE OXYGEN THER APY PROTOCOL DUGLAS JUDIE Start: 10-14-2019 STRAIGHT CATH DUGLAS RA THORE Start: 10-14-2019 Antibody treponema pallidum DUGLAS JUDIE Start: 10-14-2019 Blood count complete auto&auto difrntl wbc DUGLAS JUDIE Start: 10-14-2019 Comprehensive metabo lic panel DUGLAS JUDIE Start: 10-14-2019 Glucose blood reagen t strip DUGLAS JUDIE Start: 10-14-2019 Gluc bld gluc mntr d ev cleared fda spec home use DUGLAS JUDIE Start: 10-14-2019 BASIC METABOLIC PANE L W/ REFLEX TO MG FOR LOW K Muralikrishna Porandla Work Phone: Start: 10-14-2019 Blood count complete auto&auto difrntl wbc Muralikrishna Porandla Work Phone: Start: 10-14-2019 T. PALLIDUM AB Muralikr ishna Porandla Work Phone: Start: 10-14-2019 Glucose blood reagen t strip Duglas S Judie Work Phone: Start: 10-14-2019 INTAKE AND OUTPUT RANVI R JUDIE Start: 10-14-2019 Gluc bld gluc mntr d ev cleared fda spec home use DUGLAS JUDIE Start: 10-14-2019 STRAIGHT CATH DUGLAS RA THORE Start: 10-13-2019 Glucose blood reagen t strip DUGLAS JUDIE Start: 10-13-2019 Gluc bld gluc mntr d ev cleared fda spec home use DUGLAS JUDIE Start: 10-13-2019 Glucose blood reagen t strip Duglas S Judie Work Phone: Start: 10-13-2019 Glucose blood reagen t strip DUGLAS JUDIE Start: 10-13-2019 Glucose blood reagen t strip Duglas S Judie Work Phone: Start: 10-13-2019 Assay of ammonia DUGLAS JUDIE Start: 10-13-2019 Blood gases any combination ph pco2 po2 co2 hco3 DUGLAS JUDIE Start: 10-13-2019 IP CONSULT TO IV TEAM R ANVIR JUDIE Start: 10-13-2019 Antibody mycoplsm RANVI R JUDIE Start: 10-13-2019 Glucose blood reagen t strip Duglas S Judie Work Phone: Start: 10-13-2019 Assay of ammonia Frandy chacorta Edara Work Phone: Start: 10-13-2019 Blood gases any combination ph pco2 po2 co2 hco3 Dharmakarupuma [facility] Work Phone: Start: 10-13-2019 Antibody mycoplsm Venita Kendrick Work Phone: Start: 10-13-2019 Gluc bld gluc mntr d ev cleared fda spec home use DUGLAS JUDIE Start: 10-13-2019 INITIATE OXYGEN THER APY PROTOCOL DUGLAS JUDIE Start: 10-13-2019 Glucose blood reagen t strip DUGLAS JUDIE Start: 10-13-2019 Assay of magnesium RANV IR JUDIE Start: 10-13-2019 Blood count complete auto&auto difrntl wbc DUGLAS JUDIE Start: 10-13-2019 Comprehensive metabo lic panel DUGLAS JUDIE Start: 10-13-2019 Glucose blood reagen t strip Duglas S Judie Work Phone: Start: 10-13-2019 Gluc bld gluc mntr d ev cleared fda spec home use DUGLAS JUDIE Start: 10-13-2019 Assay of magnesium Mura sophya Eduardola Work Phone: Start: 10-13-2019 BASIC METABOLIC PANE L W/ REFLEX TO MG FOR LOW K Kobeishna Porandla Work Phone: Start: 10-13-2019 Blood count complete auto&auto difrntl wbc Denys Mcmanusandla Work Phone: Start: 10-13-2019 INTAKE AND OUTPUT RANVI R JUDIE Start: 10-13-2019 Gluc bld gluc mntr d ev cleared fda spec home use DUGLAS JUDIE Start: 10-12-2019 Urnls dip stick/tabl et reagent auto microscopy DUGLAS JUDIE Start: 10-12-2019 Glucose blood reagen t strip DUGLAS JUDIE Start: 10-12-2019 Gluc bld gluc mntr d ev cleared fda spec home use DUGLAS JUDIE Start: 10-12-2019 Urnls dip stick/tabl et reagent auto microscopy Murkashifna Porandla Work Phone: Start: 10-12-2019 Glucose blood reagen t strip Duglas S Judie Work Phone: Start: 10-12-2019 Glucose blood reagen t strip DUGLAS JUDIE Start: 10-12-2019 DIET GENERAL DUGLAS RAT HORE Start: 10-12-2019 Glucose blood reagen t strip Duglas S Judie Work Phone: Start: 10-12-2019 CULTURE, BLOOD 1 DUGLAS JUDIE Start: 10-12-2019 Glucose blood reagen t strip DUGLAS JUDIE Start: 10-12-2019 Glucose blood reagen t strip Duglas S Judie Work Phone: Start: 10-12-2019 Dup-scan artl braydon abdl/pel/scrot&/rpr orgn com DUGLAS JUDIE Start: 10-12-2019 Gluc bld gluc mntr d ev cleared fda spec home use DUGLAS JUDIE Start: 10-12-2019 Glucose blood reagen t strip DUGLAS JUDIE Start: 10-12-2019 INITIATE OXYGEN THER APY PROTOCOL DUGLAS JUDIE Start: 10-12-2019 Dup-scan artl braydon abdl/pel/scrot&/rpr orgn com Muralikrishna Porandla Work Phone: Start: 10-12-2019 Assay of aldosterone RA NVIR JUDIE Start: 10-12-2019 Assay of magnesium RANV IR JUDIE Start: 10-12-2019 Assay of renin DUGLAS R ATHORE Start: 10-12-2019 Blood count complete auto&auto difrntl wbc DUGLAS JUDIE Start: 10-12-2019 Comprehensive metabo lic panel DUGLAS JUDIE Start: 10-12-2019 Glucose blood reagen t strip Duglas S Judie Work Phone: Start: 10-12-2019 Assay of aldosterone Mu ralikrisrocioa Porandla Work Phone: Start: 10-12-2019 Assay of magnesium Mura farhan Porandla Work Phone: Start: 10-12-2019 Assay of renin Kobe sylvester Porandla Work Phone: Start: 10-12-2019 BASIC METABOLIC PANE L W/ REFLEX TO MG FOR LOW K Denys Porandla Work Phone: Start: 10-12-2019 Blood count complete auto&auto difrntl wbc Denys Porandla Work Phone: Start: 10-12-2019 Gluc bld gluc mntr d ev cleared fda spec home use DUGLAS JUDIE Start: 10-12-2019 INTAKE AND OUTPUT RANVI R JUDIE Start: 10-12-2019 Gluc bld gluc mntr d ev cleared fda spec home use DUGLAS JUDIE Start: 10-12-2019 Radiologic exam ches t single view DUGLAS JUDIE Start: 10-11-2019 IP CONSULT TO INFECT IOUS DISEASES DUGLAS JUDIE Start: 10-11-2019 Other source albumin quantitative each specimen DUGLAS JUDIE Start: 10-11-2019 Radiologic exam ches t single view Jovany Quezada Work Phone: Start: 10-11-2019 Glucose blood reagen t strip DUGLAS JUDIE Start: 10-11-2019 Gluc bld gluc mntr d ev cleared fda spec home use DUGLAS JUDIE Start: 10-11-2019 Metanephrines DUGLAS RA THORE Start: 10-11-2019 Glucose blood reagen t strip Duglas S Judie Work Phone: Start: 10-11-2019 Glucose blood reagen t strip Duglas S Judie Work Phone: Start: 10-11-2019 Metanephrines Muralikri shna Porandla Work Phone: Start: 10-11-2019 Mri brain brain stem w/o w/contrast material DUGLAS JUDIE Start: 10-11-2019 Glucose blood reagen t strip DUGLAS JUDIE Start: 10-11-2019 Mri brain brain stem w/o w/contrast material Viry Morelos Work Phone: Start: 10-11-2019 Glucose blood reagen t strip Duglas S Judie Work Phone: Start: 10-11-2019 Gluc bld gluc mntr d ev cleared fda spec home use DUGLAS JUDIE Start: 10-11-2019 Glucose blood reagen t strip DUGLAS JUDIE Start: 10-11-2019 INITIATE OXYGEN THER APY PROTOCOL DUGLAS JUDIE Start: 10-11-2019 Glucose blood reagen t strip Duglas S Judie Work Phone: Start: 10-11-2019 Blood count complete auto&auto difrntl wbc DUGLAS JUDIE Start: 10-11-2019 Comprehensive metabo lic panel DUGLAS JUDIE Start: 10-11-2019 Gluc bld gluc mntr d ev cleared fda spec home use DUGLAS JUDIE Start: 10-11-2019 BASIC METABOLIC PANE L W/ REFLEX TO MG FOR LOW K Muralikrishna Porandla Work Phone: Start: 10-11-2019 Blood count complete auto&auto difrntl wbc Muralikrishna Porandla Work Phone: Start: 10-11-2019 INTAKE AND OUTPUT RANVI R JUDIE Start: 10-11-2019 Glucose blood reagen t strip DUGLAS JUDIE Start: 10-11-2019 Gluc bld gluc mntr d ev cleared fda spec home use DUGLAS JUDIE Start: 10-10-2019 Glucose blood reagen t strip Duglas S Judie Work Phone: Start: 10-10-2019 Radex sacrum & coccy x minimum 2 views DUGLAS JUDIE Start: 10-10-2019 Radex spine lumbosac ral 2/3 views DUGLAS JUDIE Start: 10-10-2019 Glucose blood reagen t strip DUGLAS JUDIE Start: 10-10-2019 Gluc bld gluc mntr d ev cleared fda spec home use DUGLAS JUDIE Start: 10-10-2019 Radex sacrum & coccy x minimum 2 views Dharmakaruna Edara Work Phone: Start: 10-10-2019 Radex spine lumbosac ral 2/3 views Dharmakaruna Edara Work Phone: Start: 10-10-2019 Glucose blood reagen t strip Duglas S Judie Work Phone: Start: 10-10-2019 Assay of lactate DUGLAS JUDIE Start: 10-10-2019 C-reactive protein RANV IR JUDIE Start: 10-10-2019 Procalcitonin (pct) RAN VIR JUDIE Start: 10-10-2019 Sedimentation rate r bc automated DUGLAS JUDIE Start: 10-10-2019 Ct head/brain w/o co ntrast material DUGLAS JUDIE Start: 10-10-2019 Ct angiography head w/contrast/noncontrast DUGLAS JUDIE Start: 10-10-2019 Assay of lactate Alfonso Erazo Work Phone: Start: 10-10-2019 C-reactive protein Alfonso Erazo Work Phone: Start: 10-10-2019 Procalcitonin (pct) Thai Erazo Work Phone: Start: 10-10-2019 Sedimentation rate r bc automated Alfonso Hammond Erazo Work Phone: Start: 10-10-2019 Ct head/brain w/o co ntrast material Jimmy Chirri Work Phone: Start: 10-10-2019 Ct angiography neck w/contrast/noncontrast Alfonso Cyresias Work Phone: Start: 10-10-2019 Glucose blood reagen t strip DUGLAS JUDIE Start: 10-10-2019 IP CONSULT TO NEUROLOGY DUGLAS JUDIE Start: 10-10-2019 Glucose blood reagen t strip Duglas S Judie Work Phone: Start: 10-10-2019 MISCELLANEOUS NURSIN G CARE ORDER (SPECIFY) DUGLAS JUDIE Start: 10-10-2019 Gluc bld gluc mntr d ev cleared fda spec home use DUGLAS JUDIE Start: 10-10-2019 INITIATE OXYGEN THER APY PROTOCOL DUGLAS JUDIE Start: 10-10-2019 Assay of magnesium RANV IR JUDIE Start: 10-10-2019 Assay of thyroid stimulating hormone tsh DUGLAS JUDIE Start: 10-10-2019 Blood count complete auto&auto difrntl wbc DUGLAS JUDIE Start: 10-10-2019 Comprehensive metabo lic panel DUGLAS JUDIE Start: 10-10-2019 Assay of magnesium Mura likrishna Porandla Work Phone: Start: 10-10-2019 Assay of thyroid stimulating hormone tsh Muralikrishna Porandla Work Phone: Start: 10-10-2019 BASIC METABOLIC PANE L W/ REFLEX TO MG FOR LOW K Muralikrishna Porandla Work Phone: Start: 10-10-2019 Blood count complete auto&auto difrntl wbc Muralikrishna Porandla Work Phone: Start: 10-10-2019 Gluc bld gluc mntr d ev cleared fda spec home use DUGLAS JUDIE Start: 10-10-2019 DAILY WEIGHTS DUGLAS RA THORE Start: 10-10-2019 INTAKE AND OUTPUT RANVI R JUDIE Start: 10-10-2019 Gluc bld gluc mntr d ev cleared fda spec home use DUGLAS JUDIE Start: 10-09-2019 Radiologic exam abdo men 1 view DUGLAS JUDIE Start: 10-09-2019 Gluc bld gluc mntr d ev cleared fda spec home use DUGLAS JUDIE Start: 10-09-2019 Glucose blood reagen t strip DUGLAS JUDIE Start: 10-09-2019 Radiologic exam abdo men 1 view Denys Morris Work Phone: Start: 10-09-2019 Glucose blood reagen t strip Duglas S Judie Work Phone: Start: 10-09-2019 VITAL SIGNS DUGLAS RAT HORE Start: 10-09-2019 Us abdominal real ti me w/image limited DUGLAS JUDIE Start: 10-09-2019 MISCELLANEOUS NURSIN G CARE ORDER (SPECIFY) DUGLAS JUDIE Start: 10-09-2019 Gluc bld gluc mntr d ev cleared fda spec home use DUGLAS JUDIE Start: 10-09-2019 Us abdominal real ti me w/image limited Matt Mares Work Phone: Start: 10-09-2019 ELEVATE HEELS OFF OF BED DUGLAS JUDIE Start: 10-09-2019 HEAD OF BED 60 DEGRE ES OR LESS DUGLAS JUDIE Start: 10-09-2019 NURSING COMMUNICATION R ANVIR JUDIE Start: 10-09-2019 TURN PATIENT DUGLAS RAT HORE Start: 10-09-2019 INTAKE AND OUTPUT RANVI R JUDIE Start: 10-09-2019 OT EVAL AND TREAT RANVI R JUDIE Start: 10-09-2019 PT EVAL AND TREAT RANVI R JUDIE Start: 10-09-2019 FULL CODE DUGLAS RAT HORE Start: 10-09-2019 INITIATE OXYGEN THER APY PROTOCOL DUGLAS JUDIE Start: 10-09-2019 NOTIFY PHYSICIAN (SPECIFY) DUGLAS JUDIE Start: 10-09-2019 REASON FOR NO MECHAN ICAL VTE PROPHYLAXIS DUGLAS JUDIE Start: 10-09-2019 VITAL SIGNS DUGLAS RAT HORE Start: 10-09-2019 Urnls dip stick/tabl et reagent auto microscopy DUGLAS JUDIE Start: 10-09-2019 Urnls dip stick/tabl et rgnt auto w/o microscopy DUGLAS JUDIE Start: 10-09-2019 Urnls dip stick/tabl et reagent auto microscopy Denys Mcmanuskikejovita Work Phone: Start: 10-09-2019 Urnls dip stick/tabl et rgnt auto w/o microscopy Muralikrishna Porandla Work Phone: Start: 10-09-2019 PATIENT STATUS (FROM ED OR OR/PROCEDURAL) DUGLAS JUDIE Start: 10-09-2019 IP CONSULT TO [facility] [facility]ICINE DUGLAS JUDIE Start: 10-09-2019 Ct thorax w/contrast material DUGLAS JUDIE Start: 10-09-2019 Assay of troponin quantitative DUGLAS JUDIE Start: 10-09-2019 Ketone bodies serum quantitative DUGLAS JUDIE Start: 10-09-2019 COVID-19 DUGLAS RAT HORE Start: 10-09-2019 Ecg routine ecg w/le ast 12 lds w/i&r DUGLAS JUDIE Start: 10-09-2019 EKG REPORT DUGLAS RAT HORE Start: 10-09-2019 Assay of lipase DUGLAS JUDIE Start: 10-09-2019 Blood count complete auto&auto difrntl wbc DUGLAS JUDIE Start: 10-09-2019 Comprehensive metabo lic panel DUGLAS JUDIE Start: 10-09-2019 Hemoglobin glycosyla lovely a1c DUGLAS JUDIE Start: 10-09-2019 Lipid panel DUGLAS RAT HORE Start: 10-09-2019 Ct thorax w/contrast material Joel Melton Work Phone: Start: 10-09-2019 Assay of troponin quantitative Joel Melton Work Phone: Start: 10-09-2019 Ketone bodies serum quantitative Joel Melton Work Phone: Start: 10-09-2019 IP CONSULT TO VASCUL AR SURGERY DUGLAS JUDIE Start: 10-09-2019 COVID-19 Elizabeth camacho Work Phone: Start: 10-09-2019 Ecg routine ecg w/le ast 12 lds trcg only w/o i&r Joel Melton Work Phone: Start: 10-09-2019 EKG REPORT Hpf Scanni ng Start: 10-09-2019 Assay of lipase Joel Melton Work Phone: Start: 10-09-2019 Assay of troponin quantitative Joel Melton Work Phone: Start: 10-09-2019 Blood count complete auto&auto difrntl wbc Joel Melton Work Phone: Start: 10-09-2019 Comprehensive metabo lic panel Joel Melton Work Phone: Start: 10-09-2019 Hemoglobin glycosyla lovely a1c Joel Melton Work Phone: Start: 10-09-2019 Lipid panel Joel Lux Domenico merrillkingston Work Phone: Start: 06-29-2017 DISCHARGE PATIENT DOUGL HOY Start: 06-29-2017 INITIATE OXYGEN THER APY PROTOCOL ADINA HOY Start: 06-29-2017 BASIC METABOLIC PANE L W/ REFLEX TO MG FOR LOW K ADINA HOY Start: 06-29-2017 CBC WITH AUTO DIFFERENTIAL ADINA HOY Start: 06-29-2017 TROPONIN ADINA HO Y Start: 06-29-2017 TROPONIN ADINA HO Y Start: 06-29-2017 DAILY WEIGHTS ADINA H OY Start: 06-29-2017 INTAKE AND OUTPUT DOUGL HOY Start: 06-28-2017 ALDOSTERONE ADINA HO Y Start: 06-28-2017 CORTISOL TOTAL ADINA HOY Start: 06-28-2017 RENIN ADINA HO Y Start: 06-28-2017 TROPONIN ADINA HO Y Start: 06-28-2017 METANEPHRINES URINE MAYRA GLAS HOY Start: 06-28-2017 TRANSFER PATIENT DOUGLA S HOY Start: 06-28-2017 BASIC METABOLIC PANE L W/ REFLEX TO MG FOR LOW K ADINA HOY Start: 06-28-2017 CBC WITH AUTO DIFFERENTIAL ADINA HOY Start: 06-28-2017 Echo tthrc r-t 2d w/wom-mode compl spec&colr d ADINA HOY Start: 06-28-2017 FULL CODE ADINA HO Y Start: 06-28-2017 INITIATE OXYGEN THER APY PROTOCOL ADINA HOY Start: 06-28-2017 INTAKE AND OUTPUT DOUGL HOY Start: 06-28-2017 IP CONSULT TO SOCIAL WORK ADINA HOY Start: 06-28-2017 OT EVAL AND TREAT DOUGL HOY Start: 06-28-2017 PT EVAL AND TREAT DOUGL HOY Start: 06-28-2017 REASON FOR NO MECHAN ICAL VTE PROPHYLAXIS ADINA HOY Start: 06-28-2017 TOBACCO CESSATION EDUCATION ADINA HOY Start: 06-28-2017 VITAL SIGNS ADINA HO Y Start: 06-28-2017 DIET CARDIAC ADINA HO Y Start: 06-28-2017 NOTIFY PHYSICIAN (SPECIFY) ADINA FONTAINEY Start: 06-28-2017 PLACE INTERMITTENT PNEUMATIC COMPRESSION DEVICE ADINA HOY Start: 06-28-2017 REASON FOR NO CHEMIC AL VTE PROPHYLAXIS ADINA HOY Start: 06-28-2017 TELEMETRY MONITORING DO UGLAS HOY Start: 06-28-2017 VITAL SIGNS ADINA HO Y Start: 06-28-2017 PATIENT STATUS (FROM ED OR OR/PROCEDURAL) ADINA HOY Start: 06-28-2017 TROPONIN AIDNA HO Y Start: 06-28-2017 IP CONSULT TO [facility] ASSOCIATE AL MEDICINE ADINA HOY Start: 06-28-2017 EKG 12-LEAD ADINA HO Y Start: 06-28-2017 BASIC METABOLIC PANEL D OUGLAS HOY Start: 06-28-2017 CBC WITH AUTO DIFFERENTIAL ADINA HOY Start: 06-28-2017 TROPONIN ADINA HO Y Start: 06-28-2017 TSH WITH REFLEX ADINA BUNCH Start: 06-28-2017 Radiologic exam ches t 2 views ADINA BUNCH Start: 06-27-2017 URINE RT REFLEX TO CULTURE ADINA BUNCH Start: 06-27-2017 INSERT PERIPHERAL IV DO UGAPOLLO BUNCH Plan of Treatment Date Care Activity Detail Author Start: 04-08-2023 Plain X-ray of right hand XR hand RT min 3V* [facility] Start: 04-08-2023 XR Hand - right GE [address] [facility] Start: 10-14-2020 Creatinine measurement Creatinine mo nitoring [place], [place] Start: 10-14-2020 Potassium monitoring Potassium monit [place]ing [place] Start: 10-26-2019 Influenza vaccination Flu vaccine (# 1) [place] Start: 08-16-2018 Annual Wellness Visi t (AWV) Annual Wellness Visit (AWV) [place] Start: 05-23-2008 Pneumococcal 65+ yea rs Vaccine (1 of 1 - PPSV23) Pneumococcal 65+ years Vaccine (1 of 1 - PPSV23) [place] Start: 05-23-1998 Screening for osteoporosis DEXA (modify frequency per FRAX score) [place] Start: 05-23-1993 Shingles Vaccine (1 of 2) Shingles Vaccine (1 of 2) [place] Start: 05-23-1962 DTaP/Tdap/Td vaccine (1 - Tdap) DTaP/Tdap/Td vaccine (1 - Tdap) [place] End: 10-11-2019 ALBUMIN, CSF ALBUMIN, CSF Lab Routine One Time for 1 Occurrences starting 10/11/2019 until 10/11/2019 [place] Comment on above: One Time for 1 Occur rences starting 10/11/2019 until 10/11/2019 Basic Metabolic Pane l w/ Reflex to MG Basic Metabolic Panel w/ Reflex to MG Lab Routine Daily until discontinued starting 10/10/2019, 7 completed [place] Comment on above: Daily until disconti nued starting 10/10/2019, 7 completed CBC auto differential CBC auto d ifferential Lab Routine Daily until discontinued starting 10/10/2019, 7 completed [place] Comment on above: Daily until disconti nued starting 10/10/2019, 7 completed Culture, Blood 1 [place], [place] End: 10-16-2019 Culture, Urine Culture, Urine Microbiology Routine One Time for 1 Occurrences starting 10/16/2019 until 10/16/2019 [place] Comment on above: One Time for 1 Occur rences starting 10/16/2019 until 10/16/2019 Culture, Urine Culture, Urine Microbiology [employer] Label Print 10/16/2019 1:08 PM EDT [place] Nebulizer therapy HHN Treatment Respiratory Care Routine As Needed until discontinued starting 10/11/2019 [place] Comment on above: As Needed until disc ontinued starting 10/11/2019 Oxygen therapy [[facility] Data Set] Initiate Oxygen Therapy Protocol Respiratory Care Routine Daily until discontinued starting 10/09/2019 [place] Comment on above: Daily until disconti nued starting 10/09/2019 POCT Glucose [place] Comment on above: As Needed until disc ontinued starting 10/09/2019 4X Daily (AC & HS) u ntil discontinued starting 10/09/2019 Immunizations Immunization Date Immunization Notes Care Provider [facility] 12-20-2020 COVID-19 [id number] (Ramila) MD Adina Bunch Work Phone: [facility] 04-21-2020 COVID-19 [id number] (Ramila) MD Adina Bunch Work Phone: [facility] 03-24-2020 COVID-19 [id number] (Ramila) MD Adina Bunch Work Phone: [facility] Payers Date Payer Category Payer Medicare [id number] 2014 Medicare [id number] 1961 Medicare [id number] 1961 Medicare [id number] 1961 Self-pay 1945 Unknown [id number] 1945 Unknown [id number] 1945 Unknown [id number] 1945 Unknown [id number] 2.16.84 [id number] 1945 Unknown [id number] 2.16.84 0.1.896127.3.579.2.593 1945 Unknown [id number] 2.16.84 0.1.682445.3.579.2.593 1945 Unknown [id number] 2.16.84 0.1.125297.3.579.2.1259 1945 Unknown [id number] 2.16.840 .1.612070.3.579.2.1259 1945 Unknown [id number] 2.16.840 .1.439056.3.579.2.1259 1945 Unknown [id number] 2.16.840. 1.249480.3.579.2.1259 1945 Unknown [id number] 2.16.840. 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 History and physical note 06-15-2020 Note Date & Type Note Facility 06-15-2020 Note [id number] 5#[id number]:127 [facility] Clinical Note 06-15-2020 Note Date & Type Note Facility 06-15-2020 Note Cystoscopy with Uret hral Dilation ? Voiding after the procedure: there may be some pain, urethral bleeding, burning, urgency, frequency and blood tinged urine following the procedure. These symptoms usually resolve within 2-5 days. Drink the amount of fluid it takes to keep the urine pink to yellow or clear in color. Drinking enough water and fluids will help to ease any discomfort after your procedure. ? If you are having problems that seem out of the ordinary, please call. ? If unable to contact your physician and you feel it is an emergency, go to the nearest emergency room or call 911 ? Diet ? you may resume your normal diet. ? Activity ? you may resume your normal activities ? Call if you have a fever over 100 degrees [facility] History and physical note 05-18-2020 Note Date & Type Note Facility 05-18-2020 Note [id number] 2#[id number]:127 [facility] Clinical Note 05-18-2020 Note Date & Type Note Facility 05-18-2020 Note Cystoscopy with Uret hral Dilation ? Voiding after the procedure: there may be some pain, urethral bleeding, burning, urgency, frequency and blood tinged urine following the procedure. These symptoms usually resolve within 2-5 days. Drink the amount of fluid it takes to keep the urine pink to yellow or clear in color. Drinking enough water and fluids will help to ease any discomfort after your procedure. ? If you are having problems that seem out of the ordinary, please call. ? If unable to contact your physician and you feel it is an emergency, go to the nearest emergency room or call 911 ? Diet ? you may resume your normal diet. ? Activity ? you may resume your normal activities ? 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 Expl anation ACP-Advance Directive ACP-Power of Varnish Blender Latest Code Status on File Code Status Date Activated Date Inactivated Comments Full Code 10/09/2019 12:27 PM Full Code 06/28/2017 8:51 AM 06/29/2017 4:56 PM Full Code 06/28/2017 1:26 AM 06/28/2017 8:50 AM Advance Directive Response Recorded Date/ Time Advance Directives No March 14, 2023 3:07pm Advance Directive Response Recorded Date/ Time Advance Directives No March 2:38pm Discharge Instructions * Discharge Instr - MARISOL* Tami Ni RN - 10/13/2019 12:11 PM EDT Continuity of Care Form Patient Name: Zachary Maynard : 1945 Admit date: 10/09/2019 Discharge date: 10/16/2019 Code Status Order: Full Code Advance Directives: Admitting Physician: Duglas Rodrigues MD PCP: Adina Bunch MD Discharging Nurse: [facility] Unit/Room#: Discharging Unit Phone Number: Emergency Contact: Extended Emergency Contact Information Primary Emergency Contact: Deep Maynard [facility] Relation: Spouse Past Surgical History: Past Surgical History: Procedure Laterality Date HYSTERECTOMY NECK SURGERY Immunization History: There is no immunization history on file for this patient. Active Problems: Patient Active Problem List Diagnosis Code Palpitation R00.2 Hypertensive urgency I16.0 Hyperlipemia E78.5 Aneurysm of infrarenal abdominal aorta (HCC) I71.4 Acute intractable headache R51 Right renal artery stenosis (HCC) I70.1 Secondary hypertension I15.9 Hypokalemia E87.6 Isolation/Infection: Isolation No Isolation Patient Infection Status Infection Onset Added Last Indicated Last Indicated By Review Planned Expiration Resolved Resolved By None active Resolved COVID-19 Rule Out 10/09/19 10/09/19 10/09/19 COVID-19, PCR (Ordered) 10/09/19 Rule-Out Test Resulted Nurse Assessment: Last Vital Signs: BP (!) 132/56 Pulse 68 Temp 98.4 F (36.9 C) (Oral) Resp 22 Ht 5' 4 (1.626 m) Wt 155 lb 6.8 oz (70.5 kg) SpO2 94% BMI 26.68 kg/m Last documented pain score (0-10 scale): Pain Level: 7 Last Weight: Wt Readings from Last 1 Encounters: 10/13/19 155 lb 6.8 oz (70.5 kg) Mental Status: alert and able to concentrate and follow conversation IV Access: - None Nursing Mobility/ADLs: Walking Assisted Transfer Assisted Bathing Assisted Dressing Assisted Toileting Assisted Feeding Assisted Brush Trimming Machine Setter Independent Med Delivery whole Wound Care Documentation and Therapy: N/A Elimination: Continence: Bowel: Yes Bladder: No Urinary Catheter: Insertion Date: 10/16/2019 Colostomy/Ileostomy/Ileal Conduit: No Date of Last BM: 10/16/2019 Intake/Output Summary (Last 24 hours) at 10/13/2019 1210 Last data filed at 10/13/2019 0643 Gross per 24 hour Intake 1972 ml Output 2100 ml Net -127 ml I/O last 3 completed shifts: In: 1972 [P.O.:260; I.V.:1713] Out: 2099 [Urine:2100] Safety Concerns: At Risk for Falls Impairments/Disabilities: None Nutrition Therapy: Current Nutrition Therapy: - Oral Diet: General Routes of Feeding: Oral Liquids: No Restrictions Daily Fluid Restriction: no Last Modified Barium Swallow with Video (Video Swallowing Test): not done Treatments at the Time of Hospital Discharge: Respiratory Treatments: N/A Oxygen Therapy: is not on home oxygen therapy. Ventilator: - No ventilator support Rehab Therapies: Physical Therapy and Occupational Therapy Weight Bearing Status/Restrictions: No weight bearing restirctions Other Medical Equipment (for information only, NOT a DME order): n/a Other Treatments: shelter, home health aide services Patient's personal belongings (please select all that are sent with patient): patient has all belongings RN SIGNATURE: CASE MANAGEMENT/SOCIAL WORK SECTION Inpatient Status Date: 10-09-2019 Readmission Risk Assessment Score: Readmission Risk Risk of Unplanned Readmission: 12 Discharging to Facility/ Agency Name: [facility] Address: Phone: Fax: Dialysis Facility (if applicable) Name: Address: Dialysis Schedule: Phone: Fax: Embedded Developer/Supervisor Pile Driving signature: EDT ICIAN SECTION Prognosis: Fair Condition at Discharge: Stable Rehab Potential (if transferring to Rehab): Fair Recommended Labs or Other Treatments After Discharge: BP checks daily morning and evening, keep a note and bring it to your primary care physician. Physician Certification: I certify the above information and transfer of Zachary Maynard is necessary for the continuing treatment of the diagnosis listed and that she requires Home Care for greater 30 days. Update Admission H&P: No change in H&P PHYSICIAN SIGNATURE: * Additional Instructions* Denys Morris MD - 10/15/2019 F/u PCP in 1 week for HTN ( right renal artery stenosis 60%) On Norvasc 10 once daily, lisinopril 40 once daily, hydralazine 100 mg three times daily spironolactone 100 mg once daily metoprolol 100 mg twice daily F/U in 6 months for AAA size monitoring with PCP F/u urologist at [facility] in 1 week for lowe and void trial Take docusate 100 mg daily and miralax 17 g daily. documented in this encounter History of Present Illness * Tami Ni RN - 10/16/2019 5:51 PM EDT Heavy Truck Driver discharged patient @ 1745 by wheelchair off unit with . Heavy Truck Driver went over all discharge paperwork and patient denies any further questions or concerns at this time. Patient has all personal belongings and meds to beds delivered bedside. Patient also was discharged with a lowe catheterplaced 10/16/2019 * Willie Garcia APRN - CNP - 10/16/2019 5:39 PM EDT No further neurological testing is required. Pt is neurologically stable for D/C. She can F/U with neurology PRN We will sign off at this time. Please, call with any questions or concerns. Thank you * Willie Garcia APRN - CNP - 10/16/2019 12:40 PM EDT Neurology Nurse Practitioner Progress Note INTERVAL HISTORY: This is a 74 y.o. female admitted 10/09/2019 for low back pain. This is a follow-up neurology progress note. The patient was examined and the chart was reviewed. Discussed with the pt & RN. There were no acute events overnight. No new motor, sensory, visual or bulbar symptoms. Pt reported that headache & neck pain has resolved completely. HPI: Zachary Maynard is a 74 y.o. female with H/O HTN, HLD, COPD, uterine cancer s/p hysterectomy, who was admitted as a transfer from [facility] 10/09/2019 where she presented with gradually worsening acute low back pain that started on 10/06. Denied prior history of back pain, trauma or any falls. At that facility, patient had elevated d-dimer; CT was negative for PE. CTA showed 3.4 cm infra-renal abdominal aortic aneurysm; no active dissection. Patient was transferred here for vascular surgeon consult. At arrival, patient was actively vomiting, was hypoxic in the upper 80s. As per [employer] crew, patient was started on Cardene drip due to high blood pressure (SBP 200-220's). Vascular team did not recommend any emergent intervention; recommended SBP <140 mmHg. Neurology was consulted for complaint of headache. Patient reported that on 10/05, she developed an acute, sharp, 10 out of 10, headache that actually started in the back of her neck & radiated to the top of head, associated with photophobia, nausea, vomiting and lightheadedness. Also complaint of spinning sensation with movement; staying still helped. She denied prior history of regular headaches. CT head and MRI with and without contrast -negative for acute pathology; CTA head and neck -unremarkable. She received Solu-Medrol, Reglan, Benadryl, magnesium, Toradol, Zofran, Tylenol and as neededFioricet. Also received 3 doses of Depacon 500 mg every 8 hrs. Later patient developed a fever of 101.9 F; ID was consulted who recommended to monitor off antibiotics. bisacodyl 10 mg Rectal Daily polyethylene glycol 17 g Oral Daily docusate sodium 200 mg Oral Daily LORazepam 1 mg Intravenous Once hydrALAZINE 100 mg Oral 3 times per day spironolactone 100 mg Oral Daily amLODIPine 10 mg Oral Daily lisinopril 40 mg Oral Daily sodium chloride flush 10 mL Intravenous 2 times per day enoxaparin 40 mg Subcutaneous Daily aspirin 81 mg Oral Daily ezetimibe 10 mg Oral Nightly insulin lispro 0-6 Units Subcutaneous TID WC insulin lispro 0-3 Units Subcutaneous Nightly metoprolol tartrate 100 mg Oral BID Past Medical History: Diagnosis Date Cancer (HCC) uterine Hyperlipidemia Hypertension Past Surgical History: Procedure Laterality Date HYSTERECTOMY NECK SURGERY PHYSICAL EXAM: Blood pressure (!) 136/56, pulse 70, temperature 98 F (36.7 C), temperature source Oral, resp. rate20, height 5' 4 (1.626 m), weight 148 lb 9.4 oz (67.4 kg), SpO2 97 %. Neurological Examination: Mental status Alert and oriented x 3; following all commands; speech is fluent, no dysarthria, aphasia Cranial nerves II - visual elias intact to confrontation; pupils reactive III, IV, extraocular muscles intact; no MIGUEL; no nystagmus; no ptosis V - normal facial sensation VII - normal facial symmetry VIII - intact hearing IX, X - symmetrical palate elevation XI - symmetrical shoulder shrug XII - midline tongue without atrophy or fasciculation Motor function Strength: Lifting all limbs antigravity Normal bulk and tone Sensory function Grossly intact Cerebellar No visible tremors Reflex function 2/4 symmetric throughout Down going plantar response bilaterally Gait Not tested DATA Lab Results Component Value Date WBC 9.6 10/16/2019 HGB 12.6 10/16/2019 HCT 40.2 10/16/2019 PLT 216 10/16/2019 ALT 15 10/09/2019 AST 11 10/09/2019 NA 135 10/16/2019 K 3.7 10/16/2019 CL 97 (L) 10/16/2019 CREATININE 0.42 (L) 10/16/2019 BUN 14 10/16/2019 CO2 25 10/16/2019 TSH 1.05 10/10/2019 LABA1C 5.5 10/09/2019 No results found for: CHOL No results found for: TRIG Lab Results Component Value Date HDL 50 10/09/2019 Lab Results Component Value Date LDLCHOLESTEROL 143 (H) 10/09/2019 Lab Results Component Value Date VLDL NOT REPORTED (H) 10/09/2019 Lab Results Component Value Date CHOLHDLRATIO 4.6 10/09/2019 T pallidum Negative DIAGNOSTIC DATA: CT HEAD (10/10/2019): No acute intracranial abnormality MRI BRAIN W/WO (10/11/2019): Small meningioma over R frontal lobe. Volume loss with chronic microangiopathy MRI L-SPINE W/WO (10/15/2019): No compression fracture of the lumbar spine & no infection is identified. L3-4-5: minimal neural foramina narrowing. There is a 4 cm abdominal aneurysm at the level of L3-4. CTA HEAD & NECK (10/10/2019): Unremarkable IMPRESSION: 74 y.o. female admitted with Acute intractable cervicalgia, radiating to top of head, with N/V, lightheadedness, light flashes. Brain imaging negative. Patient reported 7 out of 10 pain; tender posterior neck. Is onToradol 15 mgIV Q8hr PRN. Reportedly pt's headache/neck pain has resolved Vertigo; Antivert 12.5 mg PO x 1 now & then Antivert 12.5 mg PO TID PRN Urinary retention; urology on board Fever 101.9 F (10/10); ID monitoring off antibiotics HTN urgency with SBP 200-220's; secondary hypertension due to right renal artery stenosis Acute low back pain; MRI lumbar spine - no infection or spinal canal stenosis Comorbid conditions - HLD, COPD, uterine cancer s/p hysterectomy PLAN: Continue ASA 81 mg QD & Zetia 10 mg HS (allergic to statins) Continue PT/OT; patient needs maximum assistance No further neurological testing is required at this time. Pt is neurologically stable for D/C Please note that this note was generated using a voice recognition dictation software. Although every effort was made to ensure the accuracy of this automated dynamic etching processor, some errors in dynamic etching processor may have occurred. * Michelle Pelletier MD - 10/16/2019 11:07 AM EDT [facility] Inpatient Daily Progress Note Patient: Zachary Maynard Date of : 1945 Acct: [id number] Room: Admit date: 10/09/2019 Today's date: 10/16/19 Number of days in the hospital: 7 SUBJECTIVE Admitting Diagnosis: Aneurysm of infrarenal abdominal aorta (HCC) CC: Midline Lower Back Pain Pt examined at bedside. Chart & results reviewed. No acute episodes overnight Patient is heme stable and afebrile Headache has improved Back pain has improved Has not been able to urinate - during straight cath it became plugged with mucus Unable to pass gas or have a bowel movement New onset vaginal discharge present ROS: Constitutional: negative for chills, fevers, sweats Respiratory: negative for cough, dyspnea on exertion, hemoptysis, shortness of breath, wheezing Cardiovascular: negative for chest pain, chest pressure/discomfort, lower extremity edema, palpitations Gastrointestinal: negative for abdominal pain, constipation, diarrhea, nausea, vomiting Neurological: negative for dizziness / positive for headache MSC: Positive for back pain BRIEF HISTORY 74 y.o. female presents with a chief complaint of lower back pain. Past medical history of COPD, primary hypertension was transferred from [facility] for management of infrarenal abdominal aortic aneurysm and for vascular consultation. States she started having lower back pain since . Describes the pain as constant, sharp, 10out of 10 in intensity associated with nausea. Patient went to the emergency department at [facility] to have hypertensive emergency with systolics above 200 and d-dimer was elevated. CT abdomen was done which showed 3.5 infrarenal aortic aneurysm, started on Cardene drip and pain medications we re given. Patient was transferred to [facility] found to be hypoxic in upper 80s, CT PE was done to rule out PE due to elevated d-dimer which showed no PE and centrilobular emphysema. Patient is also complaining of 3-4 episodes of vomiting, slightly bilious, no diarrhea, no constipation. States she had a history of ovarian cancer with removal of bilateral oophorectomy and hysterectomy complicated byadhesions. She is also complaining of increased frequency with nocturia, polyuria but denies hematuria, pyuria. Denies any chest pain, cough, shortness of breath. COVID was done which was negative During my evaluation patient looks comfortable, afebrile, heart rate in 70s and blood pressure withsystolic in 130s and diastolic in 70s on a Cardene drip, 2 L of oxygen saturating at 98% with no significant labs. 2 sets of troponin were negative OBJECTIVE Vital Signs: BP (!) 136/56 Pulse 70 Temp 98 F (36.7 C) (Oral) Resp 20 Ht 5' 4 (1.626 m) Wt 148 lb 9.4oz (67.4 kg) SpO2 97% BMI 25.51 kg/m Temp (24hrs), Av.1 F (36.7 C), Min:98 F (36.7 C), Max:98.1 F (36.7 C) In: 1090 Out: 1225 [Urine:1225] Physical Exam: Constitutional: This is a well developed, well nourished, 25-29.9 - Overweight 74 y.o. year old female who is alert, oriented, cooperative and in no apparent distress. Respiratory: Breath sounds bilaterally were clear to auscultation Cardiovascular: Regular without murmur Abdomen: Soft and Nontender Extremities: No lower extremity edema Neurological/Psychiatric: The patient's general behavior, level of consciousness, thought content and emotional status is normal. Medications: Scheduled Medications: bisacodyl 10 mg Rectal Daily fluconazole 200 mg Oral Once polyethylene glycol 17 g Oral Daily docusate sodium 200 mg Oral Daily LORazepam 1 mg Intravenous Once hydrALAZINE 100 mg Oral 3 times per day spironolactone 100 mg Oral Daily amLODIPine 10 mg Oral Daily lisinopril 40 mg Oral Daily sodium chloride flush 10 mL Intravenous 2 times per day enoxaparin 40 mg Subcutaneous Daily aspirin 81 mg Oral Daily ezetimibe 10 mg Oral Nightly insulin lispro 0-6 Units Subcutaneous TID WC insulin lispro 0-3 Units Subcutaneous Nightly metoprolol tartrate 100 mg Oral BID Continuous Infusions: dextrose lactated ringers 75 mL/hr at 10/16/19 0837 PRN Medicationsketorolac, 15 mg, Q6H PRN sodium chloride flush, 10 mL, PRN meclizine, 12.5 mg, TID PRN ipratropium-albuterol, 1 ampule, Q4H PRN labetalol, 10 mg, Q4H PRN hydrALAZINE, 10 mg, Q6H PRN xdmxpcrexs-nhwbikwyqwqlw-sevcgegj, 1 tablet, Q4H PRN sodium chloride flush, 10 mL, PRN acetaminophen, 650 mg, Q6H PRN Or acetaminophen, 650 mg, Q6H PRN polyethylene glycol, 17 g, Daily PRN potassium chloride, 40 mEq, PRN Or potassium alternative oral replacement, 40 mEq, PRN Or potassium chloride, 10 mEq, PRN potassium chloride, 10 mEq, PRN ondansetron, 4 mg, Q8H PRN Or ondansetron, 4 mg, Q6H PRN glucose, 15 g, PRN dextrose, 12.5 g, PRN glucagon (rDNA), 1 mg, PRN dextrose, 100 mL/hr, PRN Diagnostic Labs: CBC: Recent Labs 10/14/19 0535 10/15/19 1015 10/16/19 0558 WBC 10.0 10.6 9.6 RBC 4.38 4.58 4.35 HGB 12.9 13.4 12.6 HCT 39.5 41.6 40.2 MCV 90.2 90.8 92.4 RDW 14.7* 14.6* 14.6* PLT 190 241 216 BMP: Recent Labs 10/14/19 0535 10/15/19 1015 10/16/19 0558 NA 130* 131* 135 K 3.7 3.7 3.7 CL 91* 94* 97* CO2 26 23 25 BUN 19 16 14 CREATININE 0.48* 0.36* 0.42* FASTING LIPID PANEL: Lab Results Component Value Date HDL 50 10/09/2019 LIVER PROFILE: No results for input(s): AST, ALT, ALB, BILIDIR, BILITOT, ALKPHOS in the last 72 hours. MICROBIOLOGY: Lab Results Component Value Date/Time CULTURE NO GROWTH 4 DAYS 10/12/2019 02:17 PM Imaging: Xr Lumbar Spine (2-3 Views) Result Date: 10/10/2019 1. Subtle sclerosis subjacent to the L2 and L3 superior endplates is age- indeterminate and could represent trabecular condensation associated with acute or subacute endplate fractures. MRI of the lumbar spine is recommended for further evaluation. 2. No acute osseous abnormality of the sacrum or coccyx. 3. Osteopenia. Xr Sacrum Coccyx (min 2 Views) Result Date: 10/10/2019 1. Subtle sclerosis subjacent to the L2 and L3 superior endplates is age- indeterminate and could represent trabecular condensation associated with acute or subacute endplate fractures. MRI of the lumbar spine is recommended for further evaluation. 2. No acute osseous abnormality of the sacrum or coccyx. 3. Osteopenia. Xr Abdomen (kub) (single Ap View) Result Date: 10/09/2019 No evidence of bowel obstruction. Ct Head Wo Contrast Result Date: 10/10/2019 1. No acute intracranial abnormality. 2. Mild chronic white matter microvascular ischemic changes. Mri Lumbar Spine W Wo Contrast Result Date: 10/15/2019 No compression fracture of the lumbar spine is identified. No evidence of infection by MRI. Disc and osteophytes cause minimal narrowing of the neural foramina at L3-4 and L4-5. No stenosis of the thecal sac in the lumbar region. There is a 4 cm abdominal aneurysm at the level of L3-4 with follow-up suggested below. RECOMMENDATIONS: For management of fusiform AAA: 4.0-4.4 cm AAA, recommend follow-up every 12 months and recommend vascular consultation. * For management of saccular abdominal aortic aneurysms of any size, recommend vascular consultation. Note: For AAA enlargement of >0.5 cm in 6 months or >1 cm in 1 year, recommend vascular consultation. References: J Am Larissa Radiol 2013; 10(10):789-794; J Vasc Surg. 2018; 67:2-77 Xr Chest Portable Result Date: 10/11/2019 No acute cardiopulmonary abnormality. Us Abdomen Limited Specify Organ? Liver, Gallbladder, Pancreas Result Date: 10/09/2019 Unremarkable right upper quadrant ultrasound. Cta Head Neck W Contrast Result Date: 10/10/2019 1. No acute arterial abnormality or hemodynamically significant arterial stenosis in the head or neck. 2. No intracranial aneurysm. Mri Brain W Wo Contrast Result Date: 10/11/2019 Volume loss with chronic white matter microvascular ischemic change. Small meningioma over the right frontal lobe. ASSESSMENT & PLAN ASSESSMENT / PLAN: Vulvovaginal Candidiasis Suspected Difllucan 200 mg Secondary Hypertension Renal artery doppler showing 60% stenosis of Right Renal Artery Renin and Aldosterone ratio negative (patient is on aldactone - lab values may not be most reliable) K+ 3.7 this am Controlled BP at 137/59 On Lisinopril 40 mg daily, Norvasc 10 mg daily, Hydralazine 100 mg 3 times daily, Metoprolol 100 mgtwice daily, Aldactone 100 mg Intractable headache and fever of unknown origin MRI showed small meningioma but does not explain the headache Patient received headache cocktail by Neurology. Appreciate them seeing the patient No plan for LP as per Neurology MRI of lumbar region negative for compression with minimal foramen narrowing from L3-L5 Lower back pain from possible infrarenal abdominal aortic aneurysm Pain management with NSAIDs and Tylenol No intervention as per vascular surgery Follow-up with abdominal ultrasound after 6 months with PCP Strict blood pressure control less than 130/80 long-term Continue Zetia for hyperlipidemia Continue aspirin 81 mg daily for primary prevention of ASCVD Stable COPD On 2 L of nasal cannula PRN DuoNeb DVT ppx: Lovenox PT/OT/SW: On Board Discharge Planning: Ongoing Dwayne Hanson MD Internal Medicine Resident, PGY-1 [facility]; [place], [place] 10/16/2019, 11:07 AM I have discussed the care of Zachary Maynard , including pertinent history and exam findings, todaywith the resident. I have seen and examined the patient and the potter elements of all parts of the encounter have been performed by me . I agree with the assessment, plan and orders as documented by the resident. Principal Problem: Aneurysm of infrarenal abdominal aorta (HCC) Active Problems: Acute intractable headache Right renal artery stenosis (HCC) Secondary hypertension Hypokalemia Moderate malnutrition (HCC) Resolved Problems: * No resolved hospital problems. * Overall course ; are improving over time. DC Planning Electronically signed by Michelle Pelletier MD * Alfonso Kendrick MD - 10/16/2019 9:31 AM EDT [facility] - Progress Note Today's Date and Time: 10/16/2019, 9:31 AM Impression : Fever- Resolved Intermittent Headaches, most likely side effect of the various medications being given for control of HTN. Secondary hypertension from renal artery stenosis. No apparent meningitis Low back pain Aneurysm infrarenal abdominal aorta Centrilobular emphysema Allergy to quinolones, sulfa Urinary retention Recommendations: Monitor off antibiotics UA and culture. Medical Decision Making/Summary/Discussion:10/16/2019 Infection Control Recommendations [place] Precautions Antimicrobial Stewardship Recommendations Discontinuation of therapy Coordination of Outpatient Care: Estimated Length of IV antimicrobials:None Patient will need Midline Catheter Insertion: no Patient will need PICC line Insertion:no Patient will need: Home IV , Infusion Center, SNF, LTAC:TBD Patient will need outpatient wound care:no Chief complaint/reason for consultation: Fever, headache-concern for meningitis History of Present Illness: Zachary Maynard is a 74 y.o.-year-old female who was initially admitted on 10/09/2019. Patient seen at the request of . INITIAL HISTORY: Patient transferred from [facility] on 10-09-19 because of low back pain and findings of an infrarenal abdominal aortic aneurysm. Developed onset of back pain on 10-07-19, associated with nausea. She was evaluated at [facility] and found to have a hypertensive emergency with systolic pressures over [address] showed a 3.5 cm infrarenal aortic aneurysm. Her BP was controlled with Cardene drip and the patient was transferred to [facility]. At [facility] patient had signs of hypoxia, and an elevated D-dimer. Her chest CT did not show a PE but showed centrilobular emphysema. She experienced a few episodes of nausea and bilious vomiting. An abdominal X ray did not show signs of obstruction. Pt indicated prior Hx of ovarian cancer with subsequent hysterectomy, bilateral salpingo-oophorectomies and complication with adhesions. X rays to exclude lumbar fracture secondary to osteopenia are inconclusive. A MRI of the lumbar spine may be required. Patient has now developed temp to 101 F along with intermittent headaches. CT, MRI of brain show age related atrophic changes and a small meningioma. She remains cogent and not exhibiting any signs of meningismus. The BP remains elevated. The headache may be a side effect of the medications being used for BP control. CURRENT EXAMINATION:10/16/19 Patient is evaluated and examined at the bedside. Patient is complaining of headache at the top of her head and back pain. Patient denies fever, nausea or vomiting. Per patient and RN: there are no concerns for infection at this time. Afebrile VS stable Feeling overall better since admission but still uncomfortable. 10/11 UA negative for signs of UTI. 10/11 blood cultures negative 10/11 Artery Doppler showed 60% stenosis of right renal artery. Renin and aldosterone pending. Patient has secondary hypertension. Urology consulted for retention of urine: Post void urine 554ml advised avoid narcotics and anticholinergic and constipation. Infrarenal abdominal aortic aneurysm. No intervention as per vascular surgery. Follow-up with abdominal ultrasonogram after 6 months with PCP. Neurology: 10-15-19 MRI of spine with no compression fracture or signs of infection. Blood cultures on 10/12/2019 showed no growth. Centrilobular emphysema: Stable T. Pallidum IgG negative. Labs, X rays reviewed: 10/16/2019 (no new labs) BUN:13> 16>19>16>14 Cr:0.55> 0.46>0.47>0.48>0.36>0.42 WBC:6.8 > 12.2>12.3>10>10.6>9.6 Hb: 13.7> 12.7>14.4>12.9>13.4>12.6 Plat: 196> 196>210>190>241>216 MRI Spine: 10/15/19 Impression No compression fracture of the lumbar spine is identified. No evidence of infection by MRI. Disc and osteophytes cause minimal narrowing of the neural foramina at L3-4 and L4-5. No stenosis of the thecal sac in the lumbar region. There is a 4 cm abdominal aneurysm at the level of L3-4 with follow-up suggested below. RECOMMENDATIONS: For management of fusiform AAA: 4.0-4.4 cm AAA, recommend follow-up every 12 months and recommend vascular consultation. * For management of saccular abdominal aortic aneurysms of any size, recommend vascular consultation. Note: For AAA enlargement of >0.5 cm in 6 months or >1 cm in 1 year, recommend vascular consultation. Cultures: Urine: Blood: 10/16/19: No growth in 4 days 10-12-19:x2: no growth Sputum : Wound: COVID 10-09-19: Negative Discussed with patient, RN, . I have personally reviewed the past medical history, past surgical history, medications, social history, and family history, and I have updated the database accordingly. Past Medical History: Past Medical History: Diagnosis Date Cancer (HCC) uterine Hyperlipidemia Hypertension Past Surgical History: Past Surgical History: Procedure Laterality Date HYSTERECTOMY NECK SURGERY Medications: bisacodyl 10 mg Rectal Daily polyethylene glycol 17 g Oral Daily docusate sodium 200 mg Oral Daily LORazepam 1 mg Intravenous Once hydrALAZINE 100 mg Oral 3 times per day spironolactone 100 mg Oral Daily amLODIPine 10 mg Oral Daily lisinopril 40 mg Oral Daily sodium chloride flush 10 mL Intravenous 2 times per day enoxaparin 40 mg Subcutaneous Daily aspirin 81 mg Oral Daily ezetimibe 10 mg Oral Nightly insulin lispro 0-6 Units Subcutaneous TID WC insulin lispro 0-3 Units Subcutaneous Nightly metoprolol tartrate 100 mg Oral BID Social History: Social History Socioeconomic History Marital status: Spouse name: Not on file Number of children: Not on file Years of education: Not on file Highest education level: Not on file Occupational History Not on file Social Needs Financial resource strain: Not on file Food insecurity Worry: Not on file Inability: Not on file Transportation needs Medical: Not on file Non-medical: Not on file Tobacco Use Smoking status: Never Smoker Smokeless tobacco: Never Used Substance and Sexual Activity Alcohol use: No Drug use: No Sexual activity: Yes Partners: Male Lifestyle Physical activity Days per week: Not on file Minutes per session: Not on file Stress: Not on file Relationships Social connections Talks on phone: Not on file Gets together: Not on file Attends adventism service: Not on file Active member of club or organization: Not on file Attends meetings of clubs or organizations: Not on file Relationship status: Not on file Intimate partner violence Fear of current or ex partner: Not on file Emotionally abused: Not on file Physically abused: Not on file Forced sexual activity: Not on file Other Topics Concern Not on file Social History Narrative Not on file Family History: History reviewed. No pertinent family history. Allergies: Avelox [moxifloxacin]; Demerol hcl [meperidine]; Ciprofloxacin; Nubain [nalbuphine]; Phenergan [promethazine]; Statins; Sulfa antibiotics; and Tape [adhesive tape] Review of Systems: Constitutional: Low grade fever, no chills. No systemic complaints Head: Intermittent headaches Eyes: No double vision or blurry vision. No conjunctival inflammation. ENT: No sore throat or runny nose.. No hearing loss, tinnitus or vertigo. Cardiovascular: No chest pain or palpitations.No shortness of breath. No ZAVALA Lung: No shortness of breath or cough. No sputum production Abdomen: No nausea, vomiting, diarrhea, or abdominal pain.. No cramps. Genitourinary: No increased urinary frequency, or dysuria. No hematuria. No suprapubic or CVA pain Musculoskeletal: No muscle aches or pains. No joint effusions, swelling or deformities. Back pain. Hematologic: No bleeding or bruising. Neurologic: Intermittent headache, no weakness, numbness, or tingling. Integument: No rash, no ulcers. Psychiatric: No depression. Endocrine: No polyuria, no polydipsia, no polyphagia. Physical Examination : Patient Vitals for the past 8 hrs: BP Temp Temp src Pulse Resp SpO2 Weight 10/16/19 0825 (!) 136/56 98 F (36.7 C) Oral 70 20 97 % 10/16/19 0619 (!) 145/52 10/16/19 0615 148 lb 9.4 oz (67.4 kg) General Appearance: Awake, alert, and complaining of headache, dizziness when standing Head: Normocephalic, no trauma Eyes: Pupils equal, round, reactive to light and accommodation; extraocular movements intact; sclera anicteric; conjunctivae pink. No embolic phenomena. ENT: Oropharynx clear, without erythema, exudate, or thrush. No tenderness of sinuses. Mouth/throat: mucosa pink and moist. No lesions. Dentition in good repair. Neck:Supple, without lymphadenopathy. Thyroid normal, No bruits. Pulmonary/Chest: Clear to auscultation, without wheezes, rales, or rhonchi. No dullness to percussion. Distant breath sounds. Cardiovascular: Regular rate and rhythm without murmurs, rubs, or gallops. Abdomen: Soft, non tender. Bowel sounds normal. No organomegaly All four Extremities: No cyanosis, clubbing, edema, or effusions. Neurologic: No gross sensory or motor deficits.No neck stiffness. Skin: Warm and dry with good turgor.No signs of peripheral arterial or venous insufficiency. No ulcerations. No open wounds. Medical Decision Making -Laboratory: I have independently reviewed/ordered the following labs: CBC with Differential: Recent Labs 10/15/19 1015 10/16/19 0558 WBC 10.6 9.6 HGB 13.4 12.6 HCT 41.6 40.2 PLT 241 216 LYMPHOPCT 24 32 MONOPCT 7 8 BMP: Recent Labs 10/15/19 1015 10/16/19 0558 NA 131* 135 K 3.7 3.7 CL 94* 97* CO2 23 25 BUN 16 14 CREATININE 0.36* 0.42* Hepatic Function Panel: No results for input(s): PROT, LABALBU, BILIDIR, IBILI, BILITOT, ALKPHOS, ALT, AST in the last 72 hours. No results for input(s): RPR in the last 72 hours. No results for input(s): HIV in the last 72 hours. No results for input(s): BC in the last 72 hours. Lab Results Component Value Date MUCUS NOT REPORTED 10/12/2019 RBC 4.35 10/16/2019 TRICHOMONAS NOT REPORTED 10/12/2019 WBC 9.6 10/16/2019 YEAST NOT REPORTED 10/12/2019 TURBIDITY TURBID 10/12/2019 Lab Results Component Value Date CREATININE 0.42 10/16/2019 GLUCOSE 87 10/16/2019 Medical Decision Making-Imaging: EXAMINATION: MRI OF THE BRAIN WITHOUT AND WITH CONTRAST 10/11/2019 1:44 pm TECHNIQUE: Multiplanar multisequence MRI of the head/brain was performed without and with the administration of intravenous contrast. COMPARISON: None. HISTORY: ORDERING SYSTEM PROVIDED HISTORY: new onset headache with associated photophobia, nausea, vomiting, dizziness TECHNOLOGIST PROVIDED HISTORY: new onset headache with associated photophobia, nausea, vomiting, dizziness FINDINGS: INTRACRANIAL STRUCTURES/VENTRICLES: There is no acute infarct. No bleed or shift is identified. There is a small enhancing extra-axial nodule over the right frontal convexity measuring 5.8 mm in diameter on image number 7 of series 11, most consistent with a meningioma. There is volume loss with mild chronic white matter microvascular ischemic disease. The sellar/suprasellar regions appear unremarkable. The normal signal voids within the major intracranial vessels appear maintained. ORBITS: The visualized portion of the orbits demonstrate no acute abnormality. SINUSES: The visualized paranasal sinuses and mastoid air cells are well aerated. BONES/SOFT TISSUES: The bone marrow signal intensity appears normal. The soft tissues demonstrate no acute abnormality. Impression Volume loss with chronic white matter microvascular ischemic change. Small meningioma over the right frontal lobe. EXAMINATION: THREE XRAY VIEWS OF THE SACRUM/COCCYX; THREE XRAY VIEWS OF THE LUMBAR SPINE 10/10/2019 5:40 pm COMPARISON: None. HISTORY: ORDERING SYSTEM PROVIDED HISTORY: rule out fracture TECHNOLOGIST PROVIDED HISTORY: rule out fracture; ORDERING SYSTEM PROVIDED HISTORY: back pain, rule out fracture or osteoporotic changes TECHNOLOGIST PROVIDED HISTORY: back pain, rule out fracture or osteoporotic changes FINDINGS: Lumbar spine: The bones are diffusely osteopenic. There is subtle sclerosis subjacent to the L2 and L3 superior endplates. Vertebral body heights are maintained. Alignment is normal. Disc space heights are maintained. There is excreted contrast in the urinary tract. Aortic atherosclerotic calcifications are present. Sacrum/coccyx: The bones are diffusely osteopenic. No acute fracture is seen. Alignment is normal. There is excreted contrast in the urinary bladder. Atherosclerotic calcifications are present. Impression 1. Subtle sclerosis subjacent to the L2 and L3 superior endplates is age-indeterminate and could represent trabecular condensation associated with acute or subacute endplate fractures. MRI of the lumbar spine is recommended for further evaluation. 2. No acute osseous abnormality of the sacrum or coccyx. 3. Osteopenia. EXAMINATION: CT OF THE HEAD WITHOUT CONTRAST 10/10/2019 4:09 pm TECHNIQUE: CT of the head was performed without the administration of intravenous contrast. Dose modulation, iterative reconstruction, and/or weight based adjustment of the mA/kV was utilized to reduce the radiation dose to as low as reasonably achievable. COMPARISON: None. HISTORY: ORDERING SYSTEM PROVIDED HISTORY: worsened headache TECHNOLOGIST PROVIDED HISTORY: worsened headache Reason for Exam: worsened headache FINDINGS: BRAIN/VENTRICLES: There is no acute intracranial hemorrhage, mass effect or midline shift. No abnormal extra-axial fluid collection. The salmeron-white differentiation is maintained without evidence of an acute infarct. There is no evidence of hydrocephalus. Mild chronic white matter microvascular ischemic changes are present. ORBITS: The visualized portion of the orbits demonstrate no acute abnormality. SINUSES: The visualized paranasal sinuses and mastoid air cells demonstrate no acute abnormality. SOFT TISSUES/SKULL: No acute abnormality of the visualized skull or soft tissues. Impression 1. No acute intracranial abnormality. 2. Mild chronic white matter microvascular ischemic changes. EXAMINATION: CTA OF THE HEAD AND NECK WITH CONTRAST 10/10/2019 4:10 pm: TECHNIQUE: CTA of the head and neck was performed with the administration of intravenous contrast. Multiplanar reformatted images are provided for review. MIP images are provided for review. Stenosis of the internal carotid arteries measured using NASCET criteria. Dose modulation, iterative reconstruction, and/or weight based adjustment of the mA/kV was utilized to reduce the radiation dose to as low as reasonably achievable. COMPARISON: None. HISTORY: ORDERING SYSTEM PROVIDED HISTORY: evaluate for stenosis or anuerysm. New onset headache, vertigo, dizziness TECHNOLOGIST PROVIDED HISTORY: evaluate for stenosis or anuerysm. New onset headache, vertigo, dizziness Reason for Exam: eval for stenosis or anuerysm Acuity: Acute Type of Exam: Initial FINDINGS: CTA NECK: AORTIC ARCH/ARCH VESSELS: [id number] atherosclerotic plaque at the arch arch and involving the descending thoracic aorta without aneurysm or dissection. Conventional 3 vessel arch anatomy. No significant stenosis or acute abnormality of the innominate or subclavian arteries. CAROTID ARTERIES: Minimal atherosclerotic plaque involving the common carotid arteries without significant stenosis. 20% stenosis of the proximal right internal carotid secondary to atherosclerotic plaque. Minimal atherosclerotic plaque involving the left carotid bulb without stenosis. External carotid arteries are patent. No dissection. VERTEBRAL ARTERIES: No dissection, arterial injury, or significant stenosis. SOFT TISSUES: The lung apices are clear other than moderate emphysematous changes no cervical or superior mediastinal lymphadenopathy. The larynx and pharynx are unremarkable. No acute abnormality of the salivary and thyroid glands. BONES: There is no acute fracture or suspect osseous lesion. There is C5-6 anterior interbody fusion. CTA HEAD: ANTERIOR CIRCULATION: No significant stenosis of the intracranial internal carotid, anterior cerebral, or middle cerebral arteries. No aneurysm. POSTERIOR CIRCULATION: No significant stenosis of the vertebral, basilar, or posterior cerebral arteries. No aneurysm. OTHER: No dural venous sinus thrombosis on this non-dedicated study. BRAIN: No mass effect or midline shift. No extra-axial fluid collection. The salmeron-white differentiation is maintained. Impression 1. No acute arterial abnormality or hemodynamically significant arterial stenosis in the head or neck. 2. No intracranial aneurysm. EXAMINATION: ONE SUPINE XRAY VIEW(S) OF THE ABDOMEN 10/09/2019 7:17 pm COMPARISON: None. HISTORY: ORDERING SYSTEM PROVIDED HISTORY: r/o SBO TECHNOLOGIST PROVIDED HISTORY: r/o SBO Reason for Exam: port Supine FINDINGS: Nonspecific, nonobstructive bowel gas pattern with paucity of bowel gas. Atherosclerotic calcifications. Retained contrast in the urinary bladder. No acute osseous abnormality. Impression No evidence of bowel obstruction. EXAMINATION: CTA OF THE CHEST 10/09/2019 5:52 am TECHNIQUE: CTA of the chest was performed after the administration of intravenous contrast. Multiplanar reformatted images are provided for review. MIP images are provided for review. Dose modulation, iterative reconstruction, and/or weight based adjustment of the mA/kV was utilized to reduce the radiation dose to as low as reasonably achievable. COMPARISON: Chest radiograph June 27, 2017. HISTORY: ORDERING SYSTEM PROVIDED HISTORY: hypoxic TECHNOLOGIST PROVIDED HISTORY: hypoxic Reason for Exam: hypoxic Acuity: Acute Type of Exam: Initial FINDINGS: Chest wall: No axillary adenopathy. Upper Abdomen: No adrenal nodule. Mediastinum: Cardiomegaly. Trace pericardial fluid. No adenopathy. Atherosclerotic calcification of the thoracic aorta. Pulmonary Arteries: No central or segmental pulmonary embolus. Lungs: Centrilobular emphysema. Dependent lung changes. No pleural effusions. No focal consolidation. Bones: Thoracic spine degenerative changes. Impression No central or segmental pulmonary embolus. No acute pulmonary process. Emphysema. Medical Decision Crvgfy-Yncnebvo-Qorjp: 10/15/2019 12:10 AM - Blanco Moreau Incoming Lab Results From [employer] Specimen Information: Blood Component Collected Lab Specimen Description 10/12/2019 2:17 PM [facility] .BLOOD Special Requests 10/12/2019 2:17 PM [facility] back lt arm 3ml Culture 10/12/2019 2:17 PM [facility] NO GROWTH 3 DAYS Medical Decision Making-Other: Note: Labs, medications, radiologic studies were reviewed with personal review of films Large amounts of data were reviewed Discussed with nursing Staff, business continuity planner Infection Control and Prevention measures reviewed All prior entries were reviewed Administer medications as ordered Prognosis: Fair Discharge planning reviewed Follow up as outpatient. Thank you for allowing us to participate in the care of this patient. Please call with questions. Julio Cesar Townsend MD ATTESTATION: I have discussed the case, including pertinent history and exam findings with the residents and students. I have seen and examined the patient and the potter elements of the encounter have been performed by me. I was present when the student obtained his information or examined the patient. I have reviewed the laboratory data, other diagnostic studies and discussed them with the residents. I have updated the medical record where necessary. I agree with the assessment, plan and orders as documented by the resident/ student. Alfonso Kendrick MD. Pager: - Office: * Sang Patel RN - 10/16/2019 6:15 AM EDT Heavy Truck Driver bladder scanned patient and bladder scan shows 554 mL, writer technical publications straight cath patient and was only able to get 100 mL of urine out due to urine stop flowing due to catheter being clogged with mucus, patient stated she do not want to try again at this time and that she will try again later. Will continue to monitor. Sang Patel RN * Sailaja Durán RN - 10/15/2019 4:30 PM EDT Pt straight cathed 425 cc clear yellow urine. Tolerated well. Will continue to monitor. * Nedra Velasquez RD, LD - 10/15/2019 3:28 PM EDT Comprehensive Nutrition Assessment Type and Reason for Visit: Initial(LOS Day 6) Nutrition Recommendations/Plan: -Continue general diet as tolerated -Recommend ensure enlive supplements TID -Will monitor po intake and weights -If pt continues to consume minimal amounts of po intake, consider starting supplemental nutrition support Nutrition Assessment: Pt admitted d/t Aneurysm of infrarenal abdominal aorta. Pt primarily spoke w/pt's regarding pt's nutritional status. Pt's stated that pt has had a very poor appetite this week and has been very lethargic and sleepy. Pt's stated UBW of 160 lbs x 1 wk ago. Pt w/ >3% wt loss x 1 wk, significant. Pt meets the criteria for moderate malnutrition. Will add supplements d/t poor po intake. Staff to encourage adequate po/fluid intake. Malnutrition Assessment: Malnutrition Status: Moderate malnutrition Context: Acute Illness Findings of the 6 clinical characteristics of malnutrition: Energy Intake: 1 - 75% or less of estimated energy requirements for 7 or more days Weight Loss: 7 - Greater than 2% over 1 week Body Fat Loss: No significant body fat loss Muscle Mass Loss: No significant muscle mass loss Fluid Accumulation: 1 - Mild Extremities Hand Roller Engraver Strength: Not Performed Estimated Daily Nutrient Needs: Energy (kcal): 1.3-1.4 ~> 7044-6153 kcals/d; Weight Used for Energy Requirements: Admission Protein (g): 1.2-1.4 ~> 65-76 gms/d; Weight Used for Protein Requirements: [place] Nutrition Related Findings: Na 131 Wounds: None Current Nutrition Therapies: DIET GENERAL; Anthropometric Measures: Height: 5' 4 (162.6 cm) Current Body Weight: 154 lb (69.9 kg) Admission Body Weight: 154 lb (69.9 kg) Usual Body Weight: 160 lb (72.6 kg)(per pt's ) [place] Body Weight: 120 lbs; % [place] Body Weight 128.3 % BMI: 26.4 BMI Categories: Overweight (BMI 25.0-29.9) Nutrition Diagnosis: Moderate malnutrition, In context of acute illness or injury related to inadequate protein-energy intake, cognitive or neurological impairment as evidenced by intake 0-25%, weight loss greater than or equal to 5% in 1 month, localized or generalized fluid accumulation(Need for ONS) Nutrition Interventions: Food and/or Nutrient Delivery: Continue Current Diet, Start Oral Nutrition Supplement Nutrition Education/Counseling: Education not indicated Coordination of Nutrition Care: Continued Inpatient Monitoring Goals: Pt to consume >50% of est'd needs via PO Goals Set Nutrition Monitoring and Evaluation: Food/Nutrient Intake Outcomes: Food and Nutrient Intake, Supplement Intake Physical Signs/Symptoms Outcomes: Biochemical Data, Nutrition Focused Physical Findings, Skin, Weight, GI Status Discharge Planning: Too soon to determine Contact: [phone] * Dwayne Hanson MD - 10/15/2019 3:09 PM EDT [facility] Inpatient Daily Progress Note Patient: Zachary Maynard Date of : 1945 Acct: [id number] Room: Admit date: 10/09/2019 Today's date: 10/15/19 Number of days in the hospital: 6 SUBJECTIVE Admitting Diagnosis: Aneurysm of infrarenal abdominal aorta (HCC) CC: Midline Lower Back Pain Pt examined at bedside. Chart & results reviewed. No acute episodes overnight Patient is heme stable and afebrile Lethargy improving Lack of Appetite Unable to have a bowel movement and urine Able to pass gas Headache still present Lower Back Pain present Blood pressure under control Working with PT ROS: Constitutional: negative for chills, fevers, sweats Respiratory: negative for cough, dyspnea on exertion, hemoptysis, shortness of breath, wheezing Cardiovascular: negative for chest pain, chest pressure/discomfort, lower extremity edema, palpitations Gastrointestinal: negative for abdominal pain, constipation, diarrhea, nausea, vomiting Neurological: negative for dizziness / positive for headache MSC: Positive for back pain BRIEF HISTORY A 74 y.o. female presents with a chief complaint of lower back pain. Past medical history of COPD, primary hypertension was transferred from [facility] for management of infrarenal abdominal aortic aneurysm and for vascular consultation. States she started having lower back pain since . Describes the pain as constant, sharp, 10out of 10 in intensity associated with nausea. Patient went to the emergency department at [facility] found to have hypertensive emergency with systolics above 200 and d-dimer was elevated. CT abdomenwas done which showed 3.5 infrarenal aortic aneurysm, started on Cardene drip and pain medications were given. Patient was transferred to [facility] found to be hypoxic in upper 80s, CT PE was done to rule out PE due to elevated d-dimer which showed no PE and centrilobular emphysema. Patient is also complaining of 3-4 episodes of vomiting, slightly bilious, no diarrhea, no constipation. States she had a history of ovarian cancer with removal of bilateral oophorectomy and hysterectomy complicated by adhesions. She is also complaining of increased frequency with nocturia, polyuria but denies hematuria, pyuria. Denies any chest pain, cough, shortness of breath. COVID was done which was negative During my evaluation patient looks comfortable, afebrile, heart rate in 70s and blood pressure withsystolic in 130s and diastolic in 70s on a Cardene drip, 2 L of oxygen saturating at 98% with no significant labs. 2 sets of troponin were negative OBJECTIVE Vital Signs: BP 134/64 Pulse 63 Temp 97.7 F (36.5 C) (Oral) Resp 21 Ht 5' 4 (1.626 m) Wt 154 lb 1.6 oz (69.9 kg) SpO2 96% BMI 26.45 kg/m Temp (24hrs), Av.8 F (36.6 C), Min:97.7 F (36.5 C), Max:97.8 F (36.6 C) In: 873 Out: 1450 [Urine:1450] Physical Exam: Constitutional: This is a well developed, well nourished, 25-29.9 - Overweight 74 y.o. year old female who is alert, oriented, cooperative and in no apparent distress. Respiratory: Breath sounds bilaterally were clear to auscultation Cardiovascular: Regular without murmur Abdomen: Soft and notender Extremities: No lower extremity edema Neurological/Psychiatric: The patient's general behavior, level of consciousness, thought content and emotional status is normal. Medications: Scheduled Medications: polyethylene glycol 17 g Oral Daily docusate sodium 200 mg Oral Daily LORazepam 1 mg Intravenous Once hydrALAZINE 100 mg Oral 3 times per day spironolactone 100 mg Oral Daily amLODIPine 10 mg Oral Daily lisinopril 40 mg Oral Daily sodium chloride flush 10 mL Intravenous 2 times per day enoxaparin 40 mg Subcutaneous Daily aspirin 81 mg Oral Daily ezetimibe 10 mg Oral Nightly insulin lispro 0-6 Units Subcutaneous TID insulin lispro 0-3 Units Subcutaneous Nightly metoprolol tartrate 100 mg Oral BID Continuous Infusions: dextrose lactated ringers 75 mL/hr at 10/14/19 0641 PRN Medicationsketorolac, 15 mg, Q6H PRN ipratropium-albuterol, 1 ampule, Q4H PRN labetalol, 10 mg, Q4H PRN hydrALAZINE, 10 mg, Q6H PRN afopytupmq-yquyfbfqbceyw-rtkkmhvb, 1 tablet, Q4H PRN sodium chloride flush, 10 mL, PRN acetaminophen, 650 mg, Q6H PRN Or acetaminophen, 650 mg, Q6H PRN polyethylene glycol, 17 g, Daily PRN potassium chloride, 40 mEq, PRN Or potassium alternative oral replacement, 40 mEq, PRN Or potassium chloride, 10 mEq, PRN potassium chloride, 10 mEq, PRN ondansetron, 4 mg, Q8H PRN Or ondansetron, 4 mg, Q6H PRN glucose, 15 g, PRN dextrose, 12.5 g, PRN glucagon (rDNA), 1 mg, PRN dextrose, 100 mL/hr, PRN Diagnostic Labs: CBC: Recent Labs 10/13/19 0602 10/14/19 0535 10/15/19 1015 WBC 12.3* 10.0 10.6 RBC 4.87 4.38 4.58 HGB 14.5 12.9 13.4 HCT 45.5 39.5 41.6 MCV 93.4 90.2 90.8 RDW 15.0* 14.7* 14.6* PLT 210 190 241 BMP: Recent Labs 10/13/19 0610/14/19 0535 10/15/19 1015 NA 131* 130* 131* K 3.4* 3.7 3.7 CL 90* 91* 94* CO2 25 26 23 BUN 16 19 16 CREATININE 0.47* 0.48* 0.36* BNP: No results for input(s): BNP in the last 72 hours. PT/INR: No results for input(s): PROTIME, INR in the last 72 hours. APTT: No results for input(s): APTT in the last 72 hours. CARDIAC ENZYMES: No results for input(s): CKMB, CKMBINDEX, TROPONINI in the last 72 hours. Invalid input(s): CKTOTAL;3 FASTING LIPID PANEL: Lab Results Component Value Date HDL 50 10/09/2019 LIVER PROFILE: No results for input(s): AST, ALT, ALB, BILIDIR, BILITOT, ALKPHOS in the last 72 hours. MICROBIOLOGY: Lab Results Component Value Date/Time CULTURE NO GROWTH 3 DAYS 10/12/2019 02:17 PM Imaging: Xr Lumbar Spine (2-3 Views) Result Date: 10/10/2019 1. Subtle sclerosis subjacent to the L2 and L3 superior endplates is age- indeterminate and could represent trabecular condensation associated with acute or subacute endplate fractures. MRI of the lumbar spine is recommended for further evaluation. 2. No acute osseous abnormality of the sacrum or coccyx. 3. Osteopenia. Xr Sacrum Coccyx (min 2 Views) Result Date: 10/10/2019 1. Subtle sclerosis subjacent to the L2 and L3 superior endplates is age- indeterminate and could represent trabecular condensation associated with acute or subacute endplate fractures. MRI of the lumbar spine is recommended for further evaluation. 2. No acute osseous abnormality of the sacrum or coccyx. 3. Osteopenia. Xr Abdomen (kub) (single Ap View) Result Date: 10/09/2019 No evidence of bowel obstruction. Ct Head Wo Contrast Result Date: 10/10/2019 1. No acute intracranial abnormality. 2. Mild chronic white matter microvascular ischemic changes. Xr Chest Portable Result Date: 10/11/2019 No acute cardiopulmonary abnormality. Ct Chest Pulmonary Embolism W Contrast Result Date: 10/09/2019 No central or segmental pulmonary embolus. No acute pulmonary process. Emphysema. Us Abdomen Limited Specify Organ? Liver, Gallbladder, Pancreas Result Date: 10/09/2019 Unremarkable right upper quadrant ultrasound. Cta Head Neck W Contrast Result Date: 10/10/2019 1. No acute arterial abnormality or hemodynamically significant arterial stenosis in the head or neck. 2. No intracranial aneurysm. Mri Brain W Wo Contrast Result Date: 10/11/2019 Volume loss with chronic white matter microvascular ischemic change. Small meningioma over the right frontal lobe. ASSESSMENT & PLAN ASSESSMENT / PLAN: Secondary Hypertension Renal artery doppler showing 60% stenosis of Right Renal Artery Renin and Aldosterone ratio negative (patient is on aldactone - lab values may not be most reliable) K+ 3.7 this am Controlled BP at 137/59 On Lisinopril 40 mg daily, Norvasc 10 mg daily, Hydralazine 100 mg 3 times daily, Metoprolol 100 mgtwice daily, Aldactone 100 mg Intractable headache and fever of unknown origin MRI showed small meningioma but does not explain the headache Patient received headache cocktail by Neurology. Appreciate them seeing the patient No plan for LP as per Neurology MRI with/without contrast of lumbar spine pending Lower back pain from possible infrarenal abdominal aortic aneurysm Pain management with NSAIDs and Tylenol No intervention as per vascular surgery Follow-up with abdominal ultrasound after 6 months with PCP Strict blood pressure control less than 130/80 long-term Continue Zetia for hyperlipidemia Continue aspirin 81 mg daily for primary prevention of ASCVD Stable COPD On 2 L of nasal cannula PRN DuoNeb DVT ppx: Lovenox PT/OT/SW: On Board Discharge Planning: Home Today/Tomorrow pending results of MRI Dwayne Hanson MD Internal Medicine Resident, PGY-1 [facility]; [place], [place] 10/15/2019, 3:09 PM Associated attestation - Michelle Pelletier MD - 10/15/2019 4:31 PM EDT I have discussed the care of Zachary Maynard , including pertinent history and exam findings, todaywith the resident. I have seen and examined the patient and the potter elements of all parts of the encounter have been performed by me . I agree with the assessment, plan and orders as documented by the resident. Principal Problem: Aneurysm of infrarenal abdominal aorta (HCC) Active Problems: Acute intractable headache Right renal artery stenosis (HCC) Secondary hypertension Hypokalemia Moderate malnutrition (HCC) Resolved Problems: * No resolved hospital problems. * Overall course ; are improving over time. Patient doing much better Hypertension controlled Headache controlled Likely discharge once MRI is back Electronically signed by Michelle Pelletier MD * Winifred Foster - 10/15/2019 3:09 PM EDT Occupational Therapy [facility] Occupational Therapy Not Seen Note DATE: 10/15/2019 Name: Zachary Maynard : 1945 Patient not available for Occupational Therapy due to: [x] Testing: Pt currently at MRI. [] Hemodialysis [] Blood Transfusion in Progress []Refusal by Patient: [] Surgery/Procedure: [] Strict Bedrest [] Sedation [] Spine Precautions [] Pt being transferred to palliative care at this time. Spoke with pt/family and OT services to bedefered. [] Pt independent with functional mobility and functional tasks. Pt with no OT acute care needs at this time, will defer OT eval. [] Other Next Scheduled Treatment: Ck 10/15, as appropriate. Winifred Foster, OT/S * Sho Tierney BUTTON DECORATING MACHINE OPERATOR - 10/15/2019 1:55 PM EDT Physical Therapy Facility/Department: [facility] CAR 2 Daily Treatment Note NAME: Zachary Maynard : 1945 Date of Service: 10/15/2019 Discharge Recommendations: Patient would benefit from continued therapy after discharge PT Equipment Recommendations Other: CTA Assessment Body structures, Functions, Activity limitations: Decreased functional mobility ;Decreased strength;Decreased balance;Decreased endurance Assessment: Pt required Chente for bed mobility. Pt sat EOB for ~5min, then returned to supine w/o warning. pt reporting dizziness upon sitting that progressed with time, BP 117/60. Pt would benefit from continued acute PT to address deficits. Prognosis: Fair PT Education: Goals;PT Role;General Safety;Functional Mobility Training REQUIRES PT FOLLOW UP: Yes Activity Tolerance Activity Tolerance: Patient limited by fatigue;Patient limited by endurance;Treatment limited secondary to medical complications (free text) Activity Tolerance: dizziness Patient Diagnosis(es): The primary encounter diagnosis was Abdominal aortic aneurysm (AAA) without rupture (HCC). Diagnoses of Acute low back pain, unspecified back pain laterality, unspecified whether sciatica present, Vertigo, Nausea and vomiting, intractability of vomiting not specified, unspecified vomiting type, and Hypertensive urgency were also pertinent to this visit. has a past medical history of Cancer (HCC), Hyperlipidemia, and Hypertension. has a past surgical history that includes Hysterectomy and Neck surgery. Restrictions Restrictions/Precautions Restrictions/Precautions: Fall Risk Required Braces or Orthoses?: No Position Activity Restriction Other position/activity restrictions: up as tolerated. keep SBP <140 Subjective General Response To Previous Treatment: Patient with no complaints from previous session. Family / Caregiver Present: Yes() Subjective Subjective: RN and pt agreed to PT, pt awake in bed upon arrival, pt c/o 8/10 pain in her neck and back but willing to try mobility Pain Screening Patient Currently in Pain: Yes Vital Signs Patient Currently in Pain: Yes Orientation Orientation Overall Orientation Status: Within Functional Limits(lethargic) Objective Bed mobility Rolling to Left: Minimal assistance Supine to Sit: Minimal assistance Sit to Supine: Stand by assistance(pt returned to supine w/o warning) Scooting: Minimal assistance Transfers Sit to Stand: (Did not attempt d/t pt's dizziness) Balance Posture: Fair Sitting - Static: Fair Comments: Pt sat EOB x 4-5mins close SBA, pt c/o dizziness that progressed with time, BP 117/60, HR60's Exercises Heelslides: BLE x 10 Ankle Pumps: BLE x 10 Comments: Eyes closed but pt communicating t/o. Pt too fatigued and declined further exercises Goals Short term goals Time Frame for Short term goals: 14 visits Short term goal 1: Pt will be I bed mobility Short term goal 2: Pt will be Johnathon transfers Short term goal 3: Pt will be Johnathon amb 300' RW or least restrictive AD Short term goal 4: Pt will navigate 6 steps Johnathon R rail Plan Plan Times per week: 5x/wk Current Treatment Recommendations: Strengthening, Functional Mobility Training, Transfer Training, Gait Training, Endurance Training, Balance Training, Home Exercise Program, Safety Education & Training, Patient/Caregiver Education & Training, Equipment Evaluation, Education, & procurement Safety Devices Type of devices: Call light within reach, Nurse notified, All fall risk precautions in place, Patient at risk for falls, Left in bed, Bed alarm in place Restraints Initially in place: No Restraints: all rail 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 female admitted 10/09/2019 for low back pain. This is a follow-up neurology progress note. The patient was examined and the chart was reviewed. Discussed with the pt & RN. There were no acute events overnight. No new motor, sensory, visual or bulbar symptoms. Patient reported headache, 7 out of 10 today. On further questioning, she reported pain started in the back of her neck & radiating to the top of head. HPI: Zachary Maynard is a 74 y.o. female with H/O HTN, HLD, COPD, uterine cancer s/p hysterectomy, who was admitted as a transfer from [facility] 10/09/2019 where she presented with gradually worsening acute low back pain that started on 10/06. Denied prior history of back pain, trauma or any falls. At that facility, patient had elevated d-dimer; CT was negative for PE. CTA showed 3.4 cm infra-renal abdominal aortic aneurysm; no active dissection. Patient was transferred here for vascular surgeon consult. At arrival, patient was actively vomiting, was hypoxic in the upper 80s. As per [facility] crew, patient was started on Cardene drip due to high blood pressure (SBP 200-220's). Vascular team did not recommend any emergent intervention; recommended SBP <140 mmHg. Neurology was consulted for complaint of headache. Patient reported that on 10/05, she developed an acute, sharp, 10 out of 10, headache that actually started in the back of her neck & radiated to the top of head, associated with photophobia, nausea, vomiting and lightheadedness. Also complaint of spinning sensation with movement; staying still helped. She denied prior history of regular headaches. CT head and MRI with and without contrast -negative for acute pathology; CTA head and neck -unremarkable. She received Solu-Medrol, Reglan, Benadryl, magnesium, Toradol, Zofran, Tylenol and as neededFioricet. Also received 3 doses of Depacon 500 mg every 8 hrs. Later patient developed a fever of 101.9 F; ID was consulted who recommended to monitor off antibiotics. polyethylene glycol 17 g Oral Daily docusate sodium 200 mg Oral Daily hydrALAZINE 100 mg Oral 3 times per day spironolactone 100 mg Oral Daily amLODIPine 10 mg Oral Daily lisinopril 40 mg Oral Daily sodium chloride flush 10 mL Intravenous 2 times per day enoxaparin 40 mg Subcutaneous Daily aspirin 81 mg Oral Daily ezetimibe 10 mg Oral Nightly insulin lispro 0-6 Units Subcutaneous TID WC insulin lispro 0-3 Units Subcutaneous Nightly metoprolol tartrate 100 mg Oral BID Past Medical History: Diagnosis Date Cancer (HCC) uterine Hyperlipidemia Hypertension Past Surgical History: Procedure Laterality Date HYSTERECTOMY NECK SURGERY PHYSICAL EXAM: Blood pressure 134/64, pulse 63, temperature 97.7 F (36.5 C), temperature source Oral, resp. rate 21, height 5' 4 (1.626 m), weight 154 lb 1.6 oz (69.9 kg), SpO2 96 %. Neurological Examination: Mental status Alert and oriented x 3; following all commands; speech is fluent, no dysarthria, aphasia Cranial nerves II - visual elias intact to confrontation; pupils reactive III, IV, extraocular muscles intact; no MIGUEL; no nystagmus; no ptosis V - normal facial sensation VII - normal facial symmetry VIII - intact hearing IX, X - symmetrical palate elevation XI - symmetrical shoulder shrug XII - midline tongue without atrophy or fasciculation Motor function Strength: Lifting all limbs antigravity Normal bulk and tone Sensory function Grossly intact Cerebellar No visible tremors Reflex function 2/4 symmetric throughout Down going plantar response bilaterally Gait Not tested DATA Lab Results Component Value Date WBC 10.0 10/14/2019 HGB 12.9 10/14/2019 HCT 39.5 10/14/2019 PLT 190 10/14/2019 ALT 15 10/09/2019 AST 11 10/09/2019 NA 130 (L) 10/14/2019 K 3.7 10/14/2019 CL 91 (L) 10/14/2019 CREATININE 0.48 (L) 10/14/2019 BUN 19 10/14/2019 CO2 26 10/14/2019 TSH 1.05 10/10/2019 LABA1C 5.5 10/09/2019 No results found for: CHOL No results found for: TRIG Lab Results Component Value Date HDL 50 10/09/2019 Lab Results Component Value Date LDLCHOLESTEROL 143 (H) 10/09/2019 Lab Results Component Value Date VLDL NOT REPORTED (H) 10/09/2019 Lab Results Component Value Date CHOLHDLRATIO 4.6 10/09/2019 T pallidum Negative DIAGNOSTIC DATA: CT HEAD (10/10/2019): No acute intracranial abnormality MRI BRAIN W/WO (10/11/2019): Small meningioma over R frontal lobe. Volume loss with chronic microangiopathy MRI L-SPINE W/WO (10/15/2019): No compression fracture of the lumbar spine & no infection is identified. L3-4-5: minimal neural foramina narrowing. There is a 4 cm abdominal aneurysm at the level of L3-4. CTA HEAD & NECK (10/10/2019): Unremarkable IMPRESSION: 74 y.o. female admitted with Acute intractable cervicalgia, radiating to top of head, with N/V, lightheadedness, light flashes. Brain imaging negative. Patient reported 7 out of 10 pain; tender posterior neck. Toradol 15 mg IV x1 now & then Toradol 15 mg IV Q8hr PRN. Case was discussed with Dr. Nunez; we recommend occipital nerve blocks; will defer to the primary team Vertigo; Antivert 12.5 mg PO x 1 now & then Antivert 12.5 mg PO TID PRN Fever 101.9 F (10/10); ID monitoring off antibiotics HTN urgency with SBP 200-220's; secondary hypertension due to right renal artery stenosis Acute low back pain; MRI lumbar spine - no infection or spinal canal stenosis Comorbid conditions - HLD, COPD, uterine cancer s/p hysterectomy PLAN: Continue ASA 81 mg QD & Zetia 10 mg HS (allergic to statins) Continue PT/OT; patient needs maximum assistance Will follow while she is here Please note that this note was generated using a voice recognition dictation software. Although every effort was made to ensure the accuracy of this automated dynamic etching processor, some errors in dynamic etching processor may have occurred. * Sailaja Durán RN - 10/15/2019 9:00 AM EDT Pt straight cathed for 850 cc clear yellow urine. Tolerated well. Will continue to monitor. * Alfonso Kendrick MD - 10/15/2019 8:38 AM EDT [facility] - Progress Note Today's Date and Time: 10/15/2019, 8:38 AM Impression : Fever- Resolved Intermittent Headaches, most likely side effect of the various medications being given for control of HTN. Secondary hypertension from renal artery stenosis. No apparent meningitis Low back pain Aneurysm infrarenal abdominal aorta Centrilobular emphysema Allergy to quinolones, sulfa Urinary retention Recommendations: Monitor off antibiotics Medical Decision Making/Summary/Discussion:10/15/2019 Infection Control Recommendations [place] Precautions Antimicrobial Stewardship Recommendations Discontinuation of therapy Coordination of Outpatient Care: Estimated Length of IV antimicrobials:None Patient will need Midline Catheter Insertion: no Patient will need PICC line Insertion:no Patient will need: Home IV , Infusion Center, SNF, LTAC:TBD Patient will need outpatient wound care:no Chief complaint/reason for consultation: Fever, headache-concern for meningitis History of Present Illness: Zachary Maynard is a 74 y.o.-year-old female who was initially admitted on 10/09/2019. Patient seen at the request of . INITIAL HISTORY: Patient transferred from [facility] on 10-09-19 because of low back pain and findings of an infrarenal abdominal aortic aneurysm. Developed onset of back pain on 10-07-19, associated with nausea. She was evaluated at [facility] and found to have a hypertensive emergency with systolic pressures over [address] showed a 3.5 cm infrarenal aortic aneurysm. Her BP was controlled with Cardene drip and the patient was transferred to [facility]. At [facility] patient had signs of hypoxia, and an elevated D-dimer. Her chest CT did not show a PE but showed centrilobular emphysema. She experienced a few episodes of nausea and bilious vomiting. An abdominal X ray did not show signs of obstruction. Pt indicated prior Hx of ovarian cancer with subsequent hysterectomy, bilateral salpingo-oophorectomies and complication with adhesions. X rays to exclude lumbar fracture secondary to osteopenia are inconclusive. A MRI of the lumbar spine may be required. Patient has now developed temp to 101 F along with intermittent headaches. CT, MRI of brain show age related atrophic changes and a small meningioma. She remains cogent and not exhibiting any signs of meningismus. The BP remains elevated. The headache may be a side effect of the medications being used for BP control. CURRENT EXAMINATION:10/15/19 Patient is evaluated and examined at the bedside. Patient is somnolent complaining of headache at the top of her head and back pain. Patient denies fever, nausea or vomiting. Per patient and RN: there are no concerns for infection at this time. Afebrile VS stable Feeling overall better since admission but still uncomfortable Retaining urine, straight cath this morning with 850cc released. Headache better controlled 10/11 UA negative for signs of UTI. 10/11 blood cultures negative 10/11 Artery Doppler showed 60% stenosis of right renal artery. Renin and aldosterone pending. Patient has secondary hypertension. Infrarenal abdominal aortic aneurysm: No intervention as per vascular surgery. Follow-up with abdominal ultrasonogram after 6 months with PCP. Neurology: awaiting MRI of spine. Blood cultures on 10/12/2019 showed no growth. Centrilobular emphysema: Stable T. Pallidum IgG negative. Labs, X rays reviewed: 10/15/2019 (no new labs) BUN:13> 16>19 Cr:0.55> 0.46>0.47>0.48 WBC:6.8 > 12.2>12.3>10 Hb: 13.7> 12.7>14.4>12.9 Plat: 196> 196>210>190 Cultures: Urine: Blood: 10-12-19:x2: no growth Sputum : Wound: COVID 10-09-19: Negative Discussed with patient, RN, . I have personally reviewed the past medical history, past surgical history, medications, social history, and family history, and I have updated the database accordingly. Past Medical History: Past Medical History: Diagnosis Date Cancer (HCC) uterine Hyperlipidemia Hypertension Past Surgical History: Past Surgical History: Procedure Laterality Date HYSTERECTOMY NECK SURGERY Medications: hydrALAZINE 100 mg Oral 3 times per day spironolactone 100 mg Oral Daily amLODIPine 10 mg Oral Daily lisinopril 40 mg Oral Daily sodium chloride flush 10 mL Intravenous 2 times per day enoxaparin 40 mg Subcutaneous Daily aspirin 81 mg Oral Daily ezetimibe 10 mg Oral Nightly insulin lispro 0-6 Units Subcutaneous TID WC insulin lispro 0-3 Units Subcutaneous Nightly metoprolol tartrate 100 mg Oral BID Social History: Social History Socioeconomic History Marital status: Spouse name: Not on file Number of children: Not on file Years of education: Not on file Highest education level: Not on file Occupational History Not on file Social Needs Financial resource strain: Not on file Food insecurity Worry: Not on file Inability: Not on file Transportation needs Medical: Not on file Non-medical: Not on file Tobacco Use Smoking status: Never Smoker Smokeless tobacco: Never Used Substance and Sexual Activity Alcohol use: No Drug use: No Sexual activity: Yes Partners: Male Lifestyle Physical activity Days per week: Not on file Minutes per session: Not on file Stress: Not on file Relationships Social connections Talks on phone: Not on file Gets together: Not on file Attends adventism service: Not on file Active member of club or organization: Not on file Attends meetings of clubs or organizations: Not on file Relationship status: Not on file Intimate partner violence Fear of current or ex partner: Not on file Emotionally abused: Not on file Physically abused: Not on file Forced sexual activity: Not on file Other Topics Concern Not on file Social History Narrative Not on file Family History: History reviewed. No pertinent family history. Allergies: Avelox [moxifloxacin]; Demerol hcl [meperidine]; Ciprofloxacin; Nubain [nalbuphine]; Phenergan [promethazine]; Statins; Sulfa antibiotics; and Tape [adhesive tape] Review of Systems: Constitutional: Low grade fever, no chills. No systemic complaints Head: Intermittent headaches Eyes: No double vision or blurry vision. No conjunctival inflammation. ENT: No sore throat or runny nose.. No hearing loss, tinnitus or vertigo. Cardiovascular: No chest pain or palpitations.No shortness of breath. No ZAVALA Lung: No shortness of breath or cough. No sputum production Abdomen: No nausea, vomiting, diarrhea, or abdominal pain.. No cramps. Genitourinary: No increased urinary frequency, or dysuria. No hematuria. No suprapubic or CVA pain Musculoskeletal: No muscle aches or pains. No joint effusions, swelling or deformities. Back pain. Hematologic: No bleeding or bruising. Neurologic: Intermittent headache, no weakness, numbness, or tingling. Integument: No rash, no ulcers. Psychiatric: No depression. Endocrine: No polyuria, no polydipsia, no polyphagia. Physical Examination : Patient Vitals for the past 8 hrs: BP Temp Temp src Pulse Resp SpO2 Weight 10/15/19 0817 134/64 63 10/15/19 0649 (!) 137/59 97.7 F (36.5 C) Oral 66 21 96 % 10/15/19 0645 154 lb 1.6 oz (69.9 kg) General Appearance: Awake, alert, and complaining of headache, dizziness when standing Head: Normocephalic, no trauma Eyes: Pupils equal, round, reactive to light and accommodation; extraocular movements intact; sclera anicteric; conjunctivae pink. No embolic phenomena. ENT: Oropharynx clear, without erythema, exudate, or thrush. No tenderness of sinuses. Mouth/throat: mucosa pink and moist. No lesions. Dentition in good repair. Neck:Supple, without lymphadenopathy. Thyroid normal, No bruits. Pulmonary/Chest: Clear to auscultation, without wheezes, rales, or rhonchi. No dullness to percussion. Distant breath sounds. Cardiovascular: Regular rate and rhythm without murmurs, rubs, or gallops. Abdomen: Soft, non tender. Bowel sounds normal. No organomegaly All four Extremities: No cyanosis, clubbing, edema, or effusions. Neurologic: No gross sensory or motor deficits.No neck stiffness. Skin: Warm and dry with good turgor.No signs of peripheral arterial or venous insufficiency. No ulcerations. No open wounds. Medical Decision Making -Laboratory: I have independently reviewed/ordered the following labs: CBC with Differential: Recent Labs 10/13/19 0610/14/19 0535 WBC 12.3* 10.0 HGB 14.5 12.9 HCT 45.5 39.5 PLT 210 190 LYMPHOPCT 23* 28 MONOPCT 10 5 BMP: Recent Labs 10/13/19 0610/14/19 0535 NA 131* 130* K 3.4* 3.7 CL 90* 91* CO2 25 26 BUN 16 19 CREATININE 0.47* 0.48* MG 2.2 -- Hepatic Function Panel: No results for input(s): PROT, LABALBU, BILIDIR, IBILI, BILITOT, ALKPHOS, ALT, AST in the last 72 hours. No results for input(s): RPR in the last 72 hours. No results for input(s): HIV in the last 72 hours. No results for input(s): BC in the last 72 hours. Lab Results Component Value Date MUCUS NOT REPORTED 10/12/2019 RBC 4.38 10/14/2019 TRICHOMONAS NOT REPORTED 10/12/2019 WBC 10.0 10/14/2019 YEAST NOT REPORTED 10/12/2019 TURBIDITY TURBID 10/12/2019 Lab Results Component Value Date CREATININE 0.48 10/14/2019 GLUCOSE 104 10/14/2019 Medical Decision Making-Imaging: EXAMINATION: MRI OF THE BRAIN WITHOUT AND WITH CONTRAST 10/11/2019 1:44 pm TECHNIQUE: Multiplanar multisequence MRI of the head/brain was performed without and with the administration of intravenous contrast. COMPARISON: None. HISTORY: ORDERING SYSTEM PROVIDED HISTORY: new onset headache with associated photophobia, nausea, vomiting, dizziness TECHNOLOGIST PROVIDED HISTORY: new onset headache with associated photophobia, nausea, vomiting, dizziness FINDINGS: INTRACRANIAL STRUCTURES/VENTRICLES: There is no acute infarct. No bleed or shift is identified. There is a small enhancing extra-axial nodule over the right frontal convexity measuring 5.8 mm in diameter on image number 7 of series 11, most consistent with a meningioma. There is volume loss with mild chronic white matter microvascular ischemic disease. The sellar/suprasellar regions appear unremarkable. The normal signal voids within the major intracranial vessels appear maintained. ORBITS: The visualized portion of the orbits demonstrate no acute abnormality. SINUSES: The visualized paranasal sinuses and mastoid air cells are well aerated. BONES/SOFT TISSUES: The bone marrow signal intensity appears normal. The soft tissues demonstrate no acute abnormality. Impression Volume loss with chronic white matter microvascular ischemic change. Small meningioma over the right frontal lobe. EXAMINATION: THREE XRAY VIEWS OF THE SACRUM/COCCYX; THREE XRAY VIEWS OF THE LUMBAR SPINE 10/10/2019 5:40 pm COMPARISON: None. HISTORY: ORDERING SYSTEM PROVIDED HISTORY: rule out fracture TECHNOLOGIST PROVIDED HISTORY: rule out fracture; ORDERING SYSTEM PROVIDED HISTORY: back pain, rule out fracture or osteoporotic changes TECHNOLOGIST PROVIDED HISTORY: back pain, rule out fracture or osteoporotic changes FINDINGS: Lumbar spine: The bones are diffusely osteopenic. There is subtle sclerosis subjacent to the L2 and L3 superior endplates. Vertebral body heights are maintained. Alignment is normal. Disc space heights are maintained. There is excreted contrast in the urinary tract. Aortic atherosclerotic calcifications are present. Sacrum/coccyx: The bones are diffusely osteopenic. No acute fracture is seen. Alignment is normal. There is excreted contrast in the urinary bladder. Atherosclerotic calcifications are present. Impression 1. Subtle sclerosis subjacent to the L2 and L3 superior endplates is age-indeterminate and could represent trabecular condensation associated with acute or subacute endplate fractures. MRI of the lumbar spine is recommended for further evaluation. 2. No acute osseous abnormality of the sacrum or coccyx. 3. Osteopenia. EXAMINATION: CT OF THE HEAD WITHOUT CONTRAST 10/10/2019 4:09 pm TECHNIQUE: CT of the head was performed without the administration of intravenous contrast. Dose modulation, iterative reconstruction, and/or weight based adjustment of the mA/kV was utilized to reduce the radiation dose to as low as reasonably achievable. COMPARISON: None. HISTORY: ORDERING SYSTEM PROVIDED HISTORY: worsened headache TECHNOLOGIST PROVIDED HISTORY: worsened headache Reason for Exam: worsened headache FINDINGS: BRAIN/VENTRICLES: There is no acute intracranial hemorrhage, mass effect or midline shift. No abnormal extra-axial fluid collection. The salmeron-white differentiation is maintained without evidence of an acute infarct. There is no evidence of hydrocephalus. Mild chronic white matter microvascular ischemic changes are present. ORBITS: The visualized portion of the orbits demonstrate no acute abnormality. SINUSES: The visualized paranasal sinuses and mastoid air cells demonstrate no acute abnormality. SOFT TISSUES/SKULL: No acute abnormality of the visualized skull or soft tissues. Impression 1. No acute intracranial abnormality. 2. Mild chronic white matter microvascular ischemic changes. EXAMINATION: CTA OF THE HEAD AND NECK WITH CONTRAST 10/10/2019 4:10 pm: TECHNIQUE: CTA of the head and neck was performed with the administration of intravenous contrast. Multiplanar reformatted images are provided for review. MIP images are provided for review. Stenosis of the internal carotid arteries measured using NASCET criteria. Dose modulation, iterative reconstruction, and/or weight based adjustment of the mA/kV was utilized to reduce the radiation dose to as low as reasonably achievable. COMPARISON: None. HISTORY: ORDERING SYSTEM PROVIDED HISTORY: evaluate for stenosis or anuerysm. New onset headache, vertigo, dizziness TECHNOLOGIST PROVIDED HISTORY: evaluate for stenosis or anuerysm. New onset headache, vertigo, dizziness Reason for Exam: eval for stenosis or anuerysm Acuity: Acute Type of Exam: Initial FINDINGS: CTA NECK: AORTIC ARCH/ARCH VESSELS: [id number]-[id number] atherosclerotic plaque at the arch arch and involving the descending thoracic aorta without aneurysm or dissection. Conventional 3 vessel arch anatomy. No significant stenosis or acute abnormality of the innominate or subclavian arteries. CAROTID ARTERIES: Minimal atherosclerotic plaque involving the common carotid arteries without significant stenosis. 20% stenosis of the proximal right internal carotid secondary to atherosclerotic plaque. Minimal atherosclerotic plaque involving the left carotid bulb without stenosis. External carotid arteries are patent. No dissection. VERTEBRAL ARTERIES: No dissection, arterial injury, or significant stenosis. SOFT TISSUES: The lung apices are clear other than moderate emphysematous changes no cervical or superior mediastinal lymphadenopathy. The larynx and pharynx are unremarkable. No acute abnormality of the salivary and thyroid glands. BONES: There is no acute fracture or suspect osseous lesion. There is C5-6 anterior interbody fusion. CTA HEAD: ANTERIOR CIRCULATION: No significant stenosis of the intracranial internal carotid, anterior cerebral, or middle cerebral arteries. No aneurysm. POSTERIOR CIRCULATION: No significant stenosis of the vertebral, basilar, or posterior cerebral arteries. No aneurysm. OTHER: No dural venous sinus thrombosis on this non-dedicated study. BRAIN: No mass effect or midline shift. No extra-axial fluid collection. The salmeron-white differentiation is maintained. Impression 1. No acute arterial abnormality or hemodynamically significant arterial stenosis in the head or neck. 2. No intracranial aneurysm. EXAMINATION: ONE SUPINE XRAY VIEW(S) OF THE ABDOMEN 10/09/2019 7:17 pm COMPARISON: None. HISTORY: ORDERING SYSTEM PROVIDED HISTORY: r/o SBO TECHNOLOGIST PROVIDED HISTORY: r/o SBO Reason for Exam: port Supine FINDINGS: Nonspecific, nonobstructive bowel gas pattern with paucity of bowel gas. Atherosclerotic calcifications. Retained contrast in the urinary bladder. No acute osseous abnormality. Impression No evidence of bowel obstruction. EXAMINATION: CTA OF THE CHEST 10/09/2019 5:52 am TECHNIQUE: CTA of the chest was performed after the administration of intravenous contrast. Multiplanar reformatted images are provided for review. MIP images are provided for review. Dose modulation, iterative reconstruction, and/or weight based adjustment of the mA/kV was utilized to reduce the radiation dose to as low as reasonably achievable. COMPARISON: Chest radiograph June 27, 2017. HISTORY: ORDERING SYSTEM PROVIDED HISTORY: hypoxic TECHNOLOGIST PROVIDED HISTORY: hypoxic Reason for Exam: hypoxic Acuity: Acute Type of Exam: Initial FINDINGS: Chest wall: No axillary adenopathy. Upper Abdomen: No adrenal nodule. Mediastinum: Cardiomegaly. Trace pericardial fluid. No adenopathy. Atherosclerotic calcification of the thoracic aorta. Pulmonary Arteries: No central or segmental pulmonary embolus. Lungs: Centrilobular emphysema. Dependent lung changes. No pleural effusions. No focal consolidation. Bones: Thoracic spine degenerative changes. Impression No central or segmental pulmonary embolus. No acute pulmonary process. Emphysema. Medical Decision Vackor-Xpqowxok-Xgqmp: 10/15/2019 12:10 AM - [facility] Incoming Lab Results From [employer] Specimen Information: Blood Component Collected Lab Specimen Description 10/12/2019 2:17 PM [facility] .BLOOD Special Requests 10/12/2019 2:17 PM [facility] back lt arm 3ml Culture 10/12/2019 2:17 PM [facility] [place] GROWTH 3 DAYS Medical Decision Making-Other: Note: Labs, medications, radiologic studies were reviewed with personal review of films Large amounts of data were reviewed Discussed with nursing Staff, business continuity planner Infection Control and Prevention measures reviewed All prior entries were reviewed Administer medications as ordered Prognosis: Fair Discharge planning reviewed Follow up as outpatient. Thank you for allowing us to participate in the care of this patient. Please call with questions. Dickson Hutchinson DPM ATTESTATION: I have discussed the case, including pertinent history and exam findings with the residents and students. I have seen and examined the patient and the potter elements of the encounter have been performed by me. I was present when the student obtained his information or examined the patient. I have reviewed the laboratory data, other diagnostic studies and discussed them with the residents. I have updated the medical record where necessary. I agree with the assessment, plan and orders as documented by the resident/ student. Alfonso Kendrick MD. Pager: - Office: * Dwayne Hanson MD - 10/14/2019 1:29 PM EDT [facility] Inpatient Daily Progress Note Patient: Zachary Maynard Date of : 1945 Acct: [id number] Room: Admit date: 10/09/2019 Today's date: 10/14/19 Number of days in the hospital: 5 SUBJECTIVE Admitting Diagnosis: Aneurysm of infrarenal abdominal aorta (HCC) CC: Midline Lower Back Pain Pt examined at bedside. Chart & results reviewed. No acute episodes overnight Patient is heme stable and afebrile BP stable Back pain and headache still present Denies chest pain and shortness of breath Drowsiness and Activity improving Willing to work with PT today ROS: Constitutional: negative for chills, fevers, sweats Respiratory: negative for cough, dyspnea on exertion, hemoptysis, shortness of breath, wheezing Cardiovascular: negative for chest pain, chest pressure/discomfort, lower extremity edema, palpitations Gastrointestinal: negative for abdominal pain, constipation, diarrhea, nausea, vomiting Neurological: negative for dizziness / positive for headache MSC: Positive for back pain BRIEF HISTORY A 74 y.o. female presents with a chief complaint of lower back pain. Past medical history of COPD, primary hypertension was transferred from [facility] for management of infrarenal abdominal aortic aneurysm and for vascular consultation. States she started having lower back pain since . Describes the pain as constant, sharp, 10out of 10 in intensity associated with nausea. Patient went to the emergency department at [facility] to have hypertensive emergency with systolics above 200 and d-dimer was elevated. CT abdomen was done which showed 3.5 infrarenal aortic aneurysm, started on Cardene drip and pain medications we re given. Patient was transferred to [facility] found to be hypoxic in upper 80s, CT PE was done to rule out PE due to elevated d-dimer which showed no PE and centrilobular emphysema. Patient is also complaining of 3-4 episodes of vomiting, slightly bilious, no diarrhea, no constipation. States she had a history of ovarian cancer with removal of bilateral oophorectomy and hysterectomy complicated byadhesions. She is also complaining of increased frequency with nocturia, polyuria but denies hematuria, pyuria. Denies any chest pain, cough, shortness of breath. COVID was done which was negative During my evaluation patient looks comfortable, afebrile, heart rate in 70s and blood pressure withsystolic in 130s and diastolic in 70s on a Cardene drip, 2 L of oxygen saturating at 98% with no significant labs. 2 sets of troponin were negative OBJECTIVE Vital Signs: BP 126/61 Pulse 62 Temp 97.9 F (36.6 C) (Oral) Resp 18 Ht 5' 4 (1.626 m) Wt 154 lb 12.2 oz (70.2 kg) SpO2 95% BMI 26.57 kg/m Temp (24hrs), Av.7 F (37.1 C), Min:97.9 F (36.6 C), Max:100 F (37.8 C) In: 959 Out: 1529 [Urine:1529] Physical Exam: Constitutional: This is a well developed, well nourished, 25-29.9 - Overweight 74 y.o. year old female who is alert, oriented, cooperative and in no apparent distress. Respiratory: Breath sounds bilaterally were clear to auscultation Cardiovascular: Regular without murmur Abdomen: Soft and Nontender Extremities: No lower extremity edema Neurological/Psychiatric: The patient's general behavior, level of consciousness, thought content and emotional status is normal. Medications: Scheduled Medications: hydrALAZINE 100 mg Oral 3 times per day spironolactone 100 mg Oral Daily amLODIPine 10 mg Oral Daily lisinopril 40 mg Oral Daily sodium chloride flush 10 mL Intravenous 2 times per day enoxaparin 40 mg Subcutaneous Daily aspirin 81 mg Oral Daily ezetimibe 10 mg Oral Nightly insulin lispro 0-6 Units Subcutaneous TID WC insulin lispro 0-3 Units Subcutaneous Nightly metoprolol tartrate 100 mg Oral BID Continuous Infusions: dextrose lactated ringers 75 mL/hr at 10/14/19 0641 PRN Medicationsipratropium-albuterol, 1 ampule, Q4H PRN labetalol, 10 mg, Q4H PRN hydrALAZINE, 10 mg, Q6H PRN lvffvzjvyg-tgivevikreziu-avegynnu, 1 tablet, Q4H PRN sodium chloride flush, 10 mL, PRN acetaminophen, 650 mg, Q6H PRN Or acetaminophen, 650 mg, Q6H PRN polyethylene glycol, 17 g, Daily PRN potassium chloride, 40 mEq, PRN Or potassium alternative oral replacement, 40 mEq, PRN Or potassium chloride, 10 mEq, PRN potassium chloride, 10 mEq, PRN ondansetron, 4 mg, Q8H PRN Or ondansetron, 4 mg, Q6H PRN glucose, 15 g, PRN dextrose, 12.5 g, PRN glucagon (rDNA), 1 mg, PRN dextrose, 100 mL/hr, PRN Diagnostic Labs: CBC: Recent Labs 10/12/19 0610/13/19 0602 10/14/19 0535 WBC 12.2* 12.3* 10.0 RBC 4.32 4.87 4.38 HGB 12.7 14.5 12.9 HCT 40.5 45.5 39.5 MCV 93.8 93.4 90.2 RDW 14.7* 15.0* 14.7* PLT 196 210 190 BMP: Recent Labs 10/12/19 0610/13/19 0602 10/14/19 0535 NA 132* 131* 130* K 3.3* 3.4* 3.7 CL 94* 90* 91* CO2 26 25 26 BUN 16 16 19 CREATININE 0.46* 0.47* 0.48* FASTING LIPID PANEL: Lab Results Component Value Date HDL 50 10/09/2019 MICROBIOLOGY: Lab Results Component Value Date/Time CULTURE NO GROWTH 2 DAYS 10/12/2019 02:17 PM Imaging: Xr Lumbar Spine (2-3 Views) Result Date: 10/10/2019 1. Subtle sclerosis subjacent to the L2 and L3 superior endplates is age- indeterminate and could represent trabecular condensation associated with acute or subacute endplate fractures. MRI of the lumbar spine is recommended for further evaluation. 2. No acute osseous abnormality of the sacrum or coccyx. 3. Osteopenia. Xr Sacrum Coccyx (min 2 Views) Result Date: 10/10/2019 1. Subtle sclerosis subjacent to the L2 and L3 superior endplates is age- indeterminate and could represent trabecular condensation associated with acute or subacute endplate fractures. MRI of the lumbar spine is recommended for further evaluation. 2. No acute osseous abnormality of the sacrum or coccyx. 3. Osteopenia. Xr Abdomen (kub) (single Ap View) Result Date: 10/09/2019 No evidence of bowel obstruction. Ct Head Wo Contrast Result Date: 10/10/2019 1. No acute intracranial abnormality. 2. Mild chronic white matter microvascular ischemic changes. Xr Chest Portable Result Date: 10/11/2019 No acute cardiopulmonary abnormality. Ct Chest Pulmonary Embolism W Contrast Result Date: 10/09/2019 No central or segmental pulmonary embolus. No acute pulmonary process. Emphysema. Us Abdomen Limited Specify Organ? Liver, Gallbladder, Pancreas Result Date: 10/09/2019 Unremarkable right upper quadrant ultrasound. Cta Head Neck W Contrast Result Date: 10/10/2019 1. No acute arterial abnormality or hemodynamically significant arterial stenosis in the head or neck. 2. No intracranial aneurysm. Mri Brain W Wo Contrast Result Date: 10/11/2019 Volume loss with chronic white matter microvascular ischemic change. Small meningioma over the right frontal lobe. ASSESSMENT & PLAN ASSESSMENT / PLAN: Secondary Hypertension Renal artery doppler showing 60% stenosis of Right Renal Artery Renin and Aldosterone pending and will follow up outpatient K+ 3.7 this am Controlled BP at 126/61 On Lisinopril 40 mg daily, Norvasc 10 mg daily, Hydralazine 100 mg 3 times daily, Metoprolol 100 mgtwice daily, Aldactone 100 mg Intractable headache and fever of unknown origin MRI showed small meningioma but does not explain the headache Patient received headache cocktail by Neurology. Appreciate them seeing the patient No plan for LP as per Neurology MRI with/without contrast of lumbar spine pending Lower back pain from possible infrarenal abdominal aortic aneurysm Pain management with NSAIDs and Tylenol No intervention as per vascular surgery Follow-up with abdominal ultrasound after 6 months with PCP Strict blood pressure control less than 130/80 long-term Continue Zetia for hyperlipidemia Continue aspirin 81 mg daily for primary prevention of ASCVD Stable COPD On 2 L of nasal cannula PRN DuoNeb DVT ppx: Lovenox PT/OT/SW: On Board Discharge Planning: Ongoing Dwayne Hanson MD Internal Medicine Resident, PGY-1 [facility]; [place], [place] 10/14/2019, 1:29 PM Associated attestation - Michelle Pelletier MD - 10/14/2019 3:55 PM EDT I have discussed the care of Zachary Maynard , including pertinent history and exam findings, todaywith the resident. I have seen and examined the patient and the potter elements of all parts of the encounter have been performed by me . I agree with the assessment, plan and orders as documented by the resident. Principal Problem: Aneurysm of infrarenal abdominal aorta (HCC) Active Problems: Acute intractable headache Right renal artery stenosis (HCC) Secondary hypertension Hypokalemia Resolved Problems: * No resolved hospital problems. * Overall course ; are improving over time. Awaiting MRI lumbar spine Patient much alert today Headache is improved Blood pressure improved Discussed in length about the and patient, regarding her ultrasound renal Doppler results Electronically signed by Michelle Pelletier MD * Jose Willie, TIRE BALANCER - TREASURY SPECIALIST - 10/14/2019 11:22 AM EDT Neurology Nurse Practitioner Progress Note INTERVAL HISTORY: This is a 74 y.o. female admitted 10/09/2019 for low back pain. This is a follow-up neurology progress note. The patient was examined and the chart was reviewed. Discussed with the pt & RN. There were no acute events overnight. No new motor, sensory, visual or bulbar symptoms. Patient reported improvement in headache, at 5 out of 10 today. She refused any other medications for headache. HPI: Zachary Maynard is a 74 y.o. female with H/O HTN, HLD, COPD, uterine cancer s/p hysterectomy, who was admitted as a transfer from [facility] 10/09/2019 where she presented with gradually worsening acute low back pain that started on 10/06. Denied prior history of back pain, trauma or any falls. At that facility, patient had elevated d-dimer; CT was negative for PE. CTA showed 3.4 cm infra-renal abdominal aortic aneurysm; no active dissection. Patient was transferred here for vascular surgeon consult. At arrival, patient was actively vomiting, was hypoxic in the upper 80s. As per [facility] crew, patient was started on Cardene drip due to high blood pressure (SBP 200-220's). Vascular team did not recommend any emergent intervention; recommended SBP <140 mmHg. Neurology was consulted for complaint of headache. Patient reported that on 10/05, she developed an acute, sharp, 10 out of 10, headache located on the top of the head, associated with photophobia, nausea, vomiting andlightheadedness. Also complaint of spinning sensation with movement; staying still helped. She denied prior history of regular headaches. CT head and MRI with and without contrast -negative for acute pathology; CTA head and neck -unremarkable. She received Solu-Medrol, Reglan, Benadryl, magnesium, Toradol, Zofran, Tylenol and as neededFioricet. Also received 3 doses of Depacon 500 mg every 8 hrs. Later patient developed a fever of 101.9 F; ID was consulted who recommended to monitor off antibiotics. valproate sodium (DEPACON) IVPB 500 mg Intravenous Q8H hydrALAZINE 100 mg Oral 3 times per day spironolactone 100 mg Oral Daily amLODIPine 10 mg Oral Daily lisinopril 40 mg Oral Daily sodium chloride flush 10 mL Intravenous 2 times per day enoxaparin 40 mg Subcutaneous Daily aspirin 81 mg Oral Daily ezetimibe 10 mg Oral Nightly insulin lispro 0-6 Units Subcutaneous TID WC insulin lispro 0-3 Units Subcutaneous Nightly metoprolol tartrate 100 mg Oral BID Past Medical History: Diagnosis Date Cancer (HCC) uterine Hyperlipidemia Hypertension Past Surgical History: Procedure Laterality Date HYSTERECTOMY NECK SURGERY PHYSICAL EXAM: Blood pressure 126/61, pulse 62, temperature 97.9 F (36.6 C), temperature source Oral, resp. rate 18, height 5' 4 (1.626 m), weight 154 lb 12.2 oz (70.2 kg), SpO2 93 %. Neurological Examination: Mental status Alert and oriented x 3; following all commands; speech is fluent, no dysarthria, aphasia Cranial nerves II - visual elias intact to confrontation; pupils reactive III, IV, extraocular muscles intact; no MIGUEL; no nystagmus; no ptosis V - normal facial sensation VII - normal facial symmetry VIII - intact hearing IX, X - symmetrical palate elevation XI - symmetrical shoulder shrug XII - midline tongue without atrophy or fasciculation Motor function Strength: Lifting all limbs antigravity Normal bulk and tone Sensory function Grossly intact Cerebellar No visible tremors Reflex function 2/4 symmetric throughout Down going plantar response bilaterally Gait Not tested DATA Lab Results Component Value Date WBC 10.0 10/14/2019 HGB 12.9 10/14/2019 HCT 39.5 10/14/2019 PLT 190 10/14/2019 ALT 15 10/09/2019 AST 11 10/09/2019 NA 130 (L) 10/14/2019 K 3.7 10/14/2019 CL 91 (L) 10/14/2019 CREATININE 0.48 (L) 10/14/2019 BUN 19 10/14/2019 CO2 26 10/14/2019 TSH 1.05 10/10/2019 LABA1C 5.5 10/09/2019 No results found for: CHOL No results found for: TRIG Lab Results Component Value Date HDL 50 10/09/2019 Lab Results Component Value Date LDLCHOLESTEROL 143 (H) 10/09/2019 Lab Results Component Value Date VLDL NOT REPORTED (H) 10/09/2019 Lab Results Component Value Date CHOLHDLRATIO 4.6 10/09/2019 T pallidum Negative DIAGNOSTIC DATA: CT HEAD (10/10/2019): No acute intracranial abnormality MRI BRAIN W/WO (10/11/2019): Small meningioma over R frontal lobe. Volume loss with chronic microangiopathy MRI L-SPINE W/WO CTA HEAD & NECK (10/10/2019): Unremarkable IMPRESSION: 74 y.o. female admitted with Acute intractable headache with N/V, lightheadedness, vertiginous feeling; received migraine cocktail along the Solu-Medrol and 3 doses of Depacon 500 mg every 8 hours. Brain imaging negative. Patient reported improvement in headache, at 5 out of 10 today; refused any other medications for headache Fever 101.9 F on 10/10; ID monitoring off antibiotics HTN urgency with SBP 200-220's; secondary hypertension due to right renal artery stenosis Acute low back pain; MRI lumbar spine awaited Comorbid conditions - HLD, COPD, uterine cancer s/p hysterectomy PLAN: Continue ASA 81 mg QD & Zetia 10 mg HS (allergic to statins) Continue PT/OT; patient needs maximum assistance Will follow Please note that this note was generated using a voice recognition dictation software. Although every effort was made to ensure the accuracy of this automated dynamic etching processor, some errors in dynamic etching processor may have occurred. * Alfonso Kendrick MD - 10/14/2019 10:10 AM EDT [facility] - Progress Note Today's Date and Time: 10/14/2019, 10:10 AM Impression : Fever, etiology to be determined Intermittent Headaches, most likely side effect of the various medications being given for control of HTN. Secondary hypertension from renal artery stenosis. No apparent meningitis Low back pain Aneurysm infrarenal abdominal aorta Centrilobular emphysema Allergy to quinolones, sulfa Recommendations: Monitor off antibiotics Medical Decision Making/Summary/Discussion:10/14/2019 Infection Control Recommendations [place] Precautions Antimicrobial Stewardship Recommendations Discontinuation of therapy Coordination of Outpatient Care: Estimated Length of IV antimicrobials:None Patient will need Midline Catheter Insertion: no Patient will need PICC line Insertion:no Patient will need: Home IV , Infusion Center, SNF, LTAC:TBD Patient will need outpatient wound care:no Chief complaint/reason for consultation: Fever, headache-concern for meningitis History of Present Illness: Zachary Maynard is a 74 y.o.-year-old female who was initially admitted on 10/09/2019. Patient seen at the request of . INITIAL HISTORY: Patient transferred from [facility] on 10-09-19 because of low back pain and findings of an infrarenal abdominal aortic aneurysm. Developed onset of back pain on 10-07-19, associated with nausea. She was evaluated at [facility] and found to have a hypertensive emergency with systolic pressures over [address] showed a 3.5 cm infrarenal aortic aneurysm. Her BP was controlled with Cardene drip and the patient was transferred to [facility]. At [facility] patient had signs of hypoxia, and an elevated D-dimer. Her chest CT did not show a PE but showed centrilobular emphysema. She experienced a few episodes of nausea and bilious vomiting. An abdominal X ray did not show signs of obstruction. Pt indicated prior Hx of ovarian cancer with subsequent hysterectomy, bilateral salpingo-oophorectomies and complication with adhesions. X rays to exclude lumbar fracture secondary to osteopenia are inconclusive. A MRI of the lumbar spine may be required. Patient has now developed temp to 101 F along with intermittent headaches. CT, MRI of brain show age related atrophic changes and a small meningioma. She remains cogent and not exhibiting any signs of meningismus. The BP remains elevated. The headache may be a side effect of the medications being used for BP control. CURRENT EXAMINATION:10/14/19 Patient is evaluated and examined at the bedside. Afebrile VS stable Feels better Headache better controlled Artery Doppler showed 60% stenosis of right renal artery. Renin and aldosterone pending. Patient has secondary hypertension. Infrarenal abdominal aortic aneurysm: No intervention as per vascular surgery. Follow-up with abdominal ultrasonogram after 6 months with PCP. Neurology: Not planning to do LP. Blood cultures on 10/12/2019 showed no growth. U/A on 10/11 showed turbid urine, no nitrites, leukocyte esterase- negative. She denies burning with micturition. However patient's attendant reported that she had increased frequency of urination (every 1 hour) just before she got Admitted to the hospital. Yesterday night she had urinary retention for which she underwent straight catheterization and bladder scan. Centrilobular emphysema: Stable T. Pallidum IgG negative. Labs, X rays reviewed: 10/14/2019 BUN:13> 16>19 Cr:0.55> 0.46>0.47>0.48 WBC:6.8 > 12.2>12.3>10 Hb: 13.7> 12.7>14.4>12.9 Plat: 196> 196>210>190 Cultures: Urine: Blood: 10-12-19:x2: no growth Sputum : Wound: COVID 10-09-19: Negative Discussed with patient, RN, Neurology.. I have personally reviewed the past medical history, past surgical history, medications, social history, and family history, and I have updated the database accordingly. Past Medical History: Past Medical History: Diagnosis Date Cancer (HCC) uterine Hyperlipidemia Hypertension Past Surgical History: Past Surgical History: Procedure Laterality Date HYSTERECTOMY NECK SURGERY Medications: valproate sodium (DEPACON) IVPB 500 mg Intravenous Q8H hydrALAZINE 100 mg Oral 3 times per day spironolactone 100 mg Oral Daily amLODIPine 10 mg Oral Daily lisinopril 40 mg Oral Daily sodium chloride flush 10 mL Intravenous 2 times per day enoxaparin 40 mg Subcutaneous Daily aspirin 81 mg Oral Daily ezetimibe 10 mg Oral Nightly insulin lispro 0-6 Units Subcutaneous TID WC insulin lispro 0-3 Units Subcutaneous Nightly metoprolol tartrate 100 mg Oral BID Social History: Social History Socioeconomic History Marital status: Spouse name: Not on file Number of children: Not on file Years of education: Not on file Highest education level: Not on file Occupational History Not on file Social Needs Financial resource strain: Not on file Food insecurity Worry: Not on file Inability: Not on file Transportation needs Medical: Not on file Non-medical: Not on file Tobacco Use Smoking status: Never Smoker Smokeless tobacco: Never Used Substance and Sexual Activity Alcohol use: No Drug use: No Sexual activity: Yes Partners: Male Lifestyle Physical activity Days per week: Not on file Minutes per session: Not on file Stress: Not on file Relationships Social connections Talks on phone: Not on file Gets together: Not on file Attends adventism service: Not on file Active member of club or organization: Not on file Attends meetings of clubs or organizations: Not on file Relationship status: Not on file Intimate partner violence Fear of current or ex partner: Not on file Emotionally abused: Not on file Physically abused: Not on file Forced sexual activity: Not on file Other Topics Concern Not on file Social History Narrative Not on file Family History: History reviewed. No pertinent family history. Allergies: Avelox [moxifloxacin]; Demerol hcl [meperidine]; Ciprofloxacin; Nubain [nalbuphine]; Phenergan [promethazine]; Statins; Sulfa antibiotics; and Tape [adhesive tape] Review of Systems: Constitutional: Low grade fever, no chills. No systemic complaints Head: Intermittent headaches Eyes: No double vision or blurry vision. No conjunctival inflammation. ENT: No sore throat or runny nose.. No hearing loss, tinnitus or vertigo. Cardiovascular: No chest pain or palpitations.No shortness of breath. No ZAVALA Lung: No shortness of breath or cough. No sputum production Abdomen: No nausea, vomiting, diarrhea, or abdominal pain.. No cramps. Genitourinary: No increased urinary frequency, or dysuria. No hematuria. No suprapubic or CVA pain Musculoskeletal: No muscle aches or pains. No joint effusions, swelling or deformities. Back pain. Hematologic: No bleeding or bruising. Neurologic: Intermittent headache, no weakness, numbness, or tingling. Integument: No rash, no ulcers. Psychiatric: No depression. Endocrine: No polyuria, no polydipsia, no polyphagia. Physical Examination : Patient Vitals for the past 8 hrs: BP Temp Temp src Pulse Resp SpO2 Weight 10/14/19 0637 (!) 136/54 10/14/19 0630 154 lb 12.2 oz (70.2 kg) 10/14/19 0600 (!) 141/59 62 18 10/14/19 0530 (!) 149/59 62 18 10/14/19 0500 (!) 136/52 62 18 10/14/19 0456 (!) 136/52 98.6 F (37 C) Axillary 63 13 10/14/19 0430 (!) 133/54 63 20 93 % 10/14/19 0400 137/60 65 18 93 % 10/14/19 0330 (!) 134/59 66 21 92 % 10/14/19 0300 (!) 122/52 67 19 97 % 10/14/19 0230 (!) 136/52 68 19 96 % General Appearance: Awake, alert, and complaining of headache, dizziness when standing Head: Normocephalic, no trauma Eyes: Pupils equal, round, reactive to light and accommodation; extraocular movements intact; sclera anicteric; conjunctivae pink. No embolic phenomena. ENT: Oropharynx clear, without erythema, exudate, or thrush. No tenderness of sinuses. Mouth/throat: mucosa pink and moist. No lesions. Dentition in good repair. Neck:Supple, without lymphadenopathy. Thyroid normal, No bruits. Pulmonary/Chest: Clear to auscultation, without wheezes, rales, or rhonchi. No dullness to percussion. Distant breath sounds. Cardiovascular: Regular rate and rhythm without murmurs, rubs, or gallops. Abdomen: Soft, non tender. Bowel sounds normal. No organomegaly All four Extremities: No cyanosis, clubbing, edema, or effusions. Neurologic: No gross sensory or motor deficits.No neck stiffness. Skin: Warm and dry with good turgor.No signs of peripheral arterial or venous insufficiency. No ulcerations. No open wounds. Medical Decision Making -Laboratory: I have independently reviewed/ordered the following labs: CBC with Differential: Recent Labs 10/13/19 0602 10/14/19 0535 WBC 12.3* 10.0 HGB 14.5 12.9 HCT 45.5 39.5 PLT 210 190 LYMPHOPCT 23* 28 MONOPCT 10 5 BMP: Recent Labs 10/12/19 0636 10/13/19 0602 10/14/19 0535 NA 132* 131* 130* K 3.3* 3.4* 3.7 CL 94* 90* 91* CO2 26 25 26 BUN 16 16 19 CREATININE 0.46* 0.47* 0.48* MG 2.2 2.2 -- Hepatic Function Panel: No results for input(s): PROT, LABALBU, BILIDIR, IBILI, BILITOT, ALKPHOS, ALT, AST in the last 72 hours. No results for input(s): RPR in the last 72 hours. No results for input(s): HIV in the last 72 hours. No results for input(s): BC in the last 72 hours. Lab Results Component Value Date MUCUS NOT REPORTED 10/12/2019 RBC 4.38 10/14/2019 TRICHOMONAS NOT REPORTED 10/12/2019 WBC 10.0 10/14/2019 YEAST NOT REPORTED 10/12/2019 TURBIDITY TURBID 10/12/2019 Lab Results Component Value Date CREATININE 0.48 10/14/2019 GLUCOSE 104 10/14/2019 Medical Decision Making-Imaging: EXAMINATION: MRI OF THE BRAIN WITHOUT AND WITH CONTRAST 10/11/2019 1:44 pm TECHNIQUE: Multiplanar multisequence MRI of the head/brain was performed without and with the administration of intravenous contrast. COMPARISON: None. HISTORY: ORDERING SYSTEM PROVIDED HISTORY: new onset headache with associated photophobia, nausea, vomiting, dizziness TECHNOLOGIST PROVIDED HISTORY: new onset headache with associated photophobia, nausea, vomiting, dizziness FINDINGS: INTRACRANIAL STRUCTURES/VENTRICLES: There is no acute infarct. No bleed or shift is identified. There is a small enhancing extra-axial nodule over the right frontal convexity measuring 5.8 mm in diameter on image number 7 of series 11, most consistent with a meningioma. There is volume loss with mild chronic white matter microvascular ischemic disease. The sellar/suprasellar regions appear unremarkable. The normal signal voids within the major intracranial vessels appear maintained. ORBITS: The visualized portion of the orbits demonstrate no acute abnormality. SINUSES: The visualized paranasal sinuses and mastoid air cells are well aerated. BONES/SOFT TISSUES: The bone marrow signal intensity appears normal. The soft tissues demonstrate no acute abnormality. Impression Volume loss with chronic white matter microvascular ischemic change. Small meningioma over the right frontal lobe. EXAMINATION: THREE XRAY VIEWS OF THE SACRUM/COCCYX; THREE XRAY VIEWS OF THE LUMBAR SPINE 10/10/2019 5:40 pm COMPARISON: None. HISTORY: ORDERING SYSTEM PROVIDED HISTORY: rule out fracture TECHNOLOGIST PROVIDED HISTORY: rule out fracture; ORDERING SYSTEM PROVIDED HISTORY: back pain, rule out fracture or osteoporotic changes TECHNOLOGIST PROVIDED HISTORY: back pain, rule out fracture or osteoporotic changes FINDINGS: Lumbar spine: The bones are diffusely osteopenic. There is subtle sclerosis subjacent to the L2 and L3 superior endplates. Vertebral body heights are maintained. Alignment is normal. Disc space heights are maintained. There is excreted contrast in the urinary tract. Aortic atherosclerotic calcifications are present. Sacrum/coccyx: The bones are diffusely osteopenic. No acute fracture is seen. Alignment is normal. There is excreted contrast in the urinary bladder. Atherosclerotic calcifications are present. Impression 1. Subtle sclerosis subjacent to the L2 and L3 superior endplates is age-indeterminate and could represent trabecular condensation associated with acute or subacute endplate fractures. MRI of the lumbar spine is recommended for further evaluation. 2. No acute osseous abnormality of the sacrum or coccyx. 3. Osteopenia. EXAMINATION: CT OF THE HEAD WITHOUT CONTRAST 10/10/2019 4:09 pm TECHNIQUE: CT of the head was performed without the administration of intravenous contrast. Dose modulation, iterative reconstruction, and/or weight based adjustment of the mA/kV was utilized to reduce the radiation dose to as low as reasonably achievable. COMPARISON: None. HISTORY: ORDERING SYSTEM PROVIDED HISTORY: worsened headache TECHNOLOGIST PROVIDED HISTORY: worsened headache Reason for Exam: worsened headache FINDINGS: BRAIN/VENTRICLES: There is no acute intracranial hemorrhage, mass effect or midline shift. No abnormal extra-axial fluid collection. The salmeron-white differentiation is maintained without evidence of an acute infarct. There is no evidence of hydrocephalus. Mild chronic white matter microvascular ischemic changes are present. ORBITS: The visualized portion of the orbits demonstrate no acute abnormality. SINUSES: The visualized paranasal sinuses and mastoid air cells demonstrate no acute abnormality. SOFT TISSUES/SKULL: No acute abnormality of the visualized skull or soft tissues. Impression 1. No acute intracranial abnormality. 2. Mild chronic white matter microvascular ischemic changes. EXAMINATION: CTA OF THE HEAD AND NECK WITH CONTRAST 10/10/2019 4:10 pm: TECHNIQUE: CTA of the head and neck was performed with the administration of intravenous contrast. Multiplanar reformatted images are provided for review. MIP images are provided for review. Stenosis of the internal carotid arteries measured using NASCET criteria. Dose modulation, iterative reconstruction, and/or weight based adjustment of the mA/kV was utilized to reduce the radiation dose to as low as reasonably achievable. COMPARISON: None. HISTORY: ORDERING SYSTEM PROVIDED HISTORY: evaluate for stenosis or anuerysm. New onset headache, vertigo, dizziness TECHNOLOGIST PROVIDED HISTORY: evaluate for stenosis or anuerysm. New onset headache, vertigo, dizziness Reason for Exam: eval for stenosis or anuerysm Acuity: Acute Type of Exam: Initial FINDINGS: CTA NECK: AORTIC ARCH/ARCH VESSELS: [id number] atherosclerotic plaque at the arch arch and involving the descending thoracic aorta without aneurysm or dissection. Conventional 3 vessel arch anatomy. No significant stenosis or acute abnormality of the innominate or subclavian arteries. CAROTID ARTERIES: Minimal atherosclerotic plaque involving the common carotid arteries without significant stenosis. 20% stenosis of the proximal right internal carotid secondary to atherosclerotic plaque. Minimal atherosclerotic plaque involving the left carotid bulb without stenosis. External carotid arteries are patent. No dissection. VERTEBRAL ARTERIES: No dissection, arterial injury, or significant stenosis. SOFT TISSUES: The lung apices are clear other than moderate emphysematous changes no cervical or superior mediastinal lymphadenopathy. The larynx and pharynx are unremarkable. No acute abnormality of the salivary and thyroid glands. BONES: There is no acute fracture or suspect osseous lesion. There is C5-6 anterior interbody fusion. CTA HEAD: ANTERIOR CIRCULATION: No significant stenosis of the intracranial internal carotid, anterior cerebral, or middle cerebral arteries. No aneurysm. POSTERIOR CIRCULATION: No significant stenosis of the vertebral, basilar, or posterior cerebral arteries. No aneurysm. OTHER: No dural venous sinus thrombosis on this non-dedicated study. BRAIN: No mass effect or midline shift. No extra-axial fluid collection. The salmeron-white differentiation is maintained. Impression 1. No acute arterial abnormality or hemodynamically significant arterial stenosis in the head or neck. 2. No intracranial aneurysm. EXAMINATION: ONE SUPINE XRAY VIEW(S) OF THE ABDOMEN 10/09/2019 7:17 pm COMPARISON: None. HISTORY: ORDERING SYSTEM PROVIDED HISTORY: r/o SBO TECHNOLOGIST PROVIDED HISTORY: r/o SBO Reason for Exam: port Supine FINDINGS: Nonspecific, nonobstructive bowel gas pattern with paucity of bowel gas. Atherosclerotic calcifications. Retained contrast in the urinary bladder. No acute osseous abnormality. Impression No evidence of bowel obstruction. EXAMINATION: CTA OF THE CHEST 10/09/2019 5:52 am TECHNIQUE: CTA of the chest was performed after the administration of intravenous contrast. Multiplanar reformatted images are provided for review. MIP images are provided for review. Dose modulation, iterative reconstruction, and/or weight based adjustment of the mA/kV was utilized to reduce the radiation dose to as low as reasonably achievable. COMPARISON: Chest radiograph June 27, 2017. HISTORY: ORDERING SYSTEM PROVIDED HISTORY: hypoxic TECHNOLOGIST PROVIDED HISTORY: hypoxic Reason for Exam: hypoxic Acuity: Acute Type of Exam: Initial FINDINGS: Chest wall: No axillary adenopathy. Upper Abdomen: No adrenal nodule. Mediastinum: Cardiomegaly. Trace pericardial fluid. No adenopathy. Atherosclerotic calcification of the thoracic aorta. Pulmonary Arteries: No central or segmental pulmonary embolus. Lungs: Centrilobular emphysema. Dependent lung changes. No pleural effusions. No focal consolidation. Bones: Thoracic spine degenerative changes. Impression No central or segmental pulmonary embolus. No acute pulmonary process. Emphysema. Medical Decision [id number]: Medical Decision Making-Other: Note: Labs, medications, radiologic studies were reviewed with personal review of films Large amounts of data were reviewed Discussed with nursing Staff, business continuity planner Infection Control and Prevention measures reviewed All prior entries were reviewed Administer medications as ordered Prognosis: Guarded Discharge planning reviewed Follow up as outpatient. Thank you for allowing us to participate in the care of this patient. Please call with questions. Dickson Hutchinson DPM ATTESTATION: I have discussed the case, including pertinent history and exam findings with the residents and students. I have seen and examined the patient and the potter elements of the encounter have been performed by me. I was present when the student obtained his information or examined the patient. I have reviewed the laboratory data, other diagnostic studies and discussed them with the residents. I have updated the medical record where necessary. I agree with the assessment, plan and orders as documented by the resident/ student. Alfonso Kendrick MD. Pager: - Office: * Divina Ferris RN - 10/13/2019 10:40 PM EDT Heavy Truck Driver contacted internal med regarding pt complaining of lower abdominal pain. States she has to void but is unable to. Bladder scanned her just now and >999. New order for one time straight cath. Straight cath completed at 2315. 900ml clear, yellow urine out with 63ml residual. Will continue to monitor. 0430- Heavy Truck Driver contacted internal med regarding pt unable to void. Bladder scan shows 490. One time straight cath order placed at 0610. New bladder scan shows 571. Cath completed at 0645. 550ml clear, yellow urine out with 16ml residual. Will continue to monitor. Internal med also made aware that pt has not had bowel movement since admission. Mirilax administered. Bowel sounds active. * Linda Adhikari, BUTTON DECORATING MACHINE OPERATOR - 10/13/2019 4:16 PM EDT Physical Therapy Facility/Department: [facility] 2 Daily Treatment Note NAME: Zachary Maynard : 1945 Date of Service: 10/13/2019 Discharge Recommendations: Patient would benefit from continued therapy after discharge PT Equipment Recommendations Equipment Needed: No Assessment Body structures, Functions, Activity limitations: Decreased functional mobility ;Decreased strength;Decreased balance;Decreased endurance Assessment: Pt would benfit from continued acute PT to address deficits. Prognosis: Fair REQUIRES PT FOLLOW UP: Yes Activity Tolerance Activity Tolerance: Patient limited by fatigue;Patient limited by endurance;Treatment limited secondary to medical complications (free text) Activity Tolerance: lethargy Patient Diagnosis(es): The primary encounter diagnosis was Abdominal aortic aneurysm (AAA) without rupture (HCC). Diagnoses of Acute low back pain, unspecified back pain laterality, unspecified whether sciatica present, Vertigo, Nausea and vomiting, intractability of vomiting not specified, unspecified vomiting type, and Hypertensive urgency were also pertinent to this visit. has a past medical history of Cancer (HCC), Hyperlipidemia, and Hypertension. has a past surgical history that includes Hysterectomy and Neck surgery. Restrictions Restrictions/Precautions Restrictions/Precautions: Fall Risk Required Braces or Orthoses?: No Position Activity Restriction Other position/activity restrictions: up as tolerated. keep SBP <140 Subjective General Response To Previous Treatment: Patient with no complaints from previous session. Family / Caregiver Present: Yes Subjective Subjective: RN agreeable to PT. Pt sleeping upon arrival, very lethargic, following no commands. Vitals WNL Pain Screening Patient Currently in Pain: (did not answer. Grimaced with bed mobiltiy) Vital Signs Patient Currently in Pain: (did not answer. Grimaced with bed mobiltiy) Orientation Orientation Overall Orientation Status: Impaired Orientation Level: Unable to assess(unable to fully assess due to lethargy) Cognition Objective Bed mobility Rolling to Left: Maximum assistance Supine to Sit: Maximum assistance Sit to Supine: Maximum assistance Balance Posture: Fair Sitting - Static: Poor(Pt tolerated sitting EOB x ~1 min, with heavy post and lateral lean. Pt would not open eyes, or participate) Goals Short term goals Time Frame for Short term goals: 14 visits Short term goal 1: Pt will be I bed mobility Short term goal 2: Pt will be Johnathon transfers Short term goal 3: Pt will be Johnathon amb 300' RW or least restrictive AD Short term goal 4: Pt will navigate 6 steps Johnathon R rail Plan Plan Times per week: 5x/wk Current Treatment Recommendations: Strengthening, Functional Mobility Training, Transfer Training, Gait Training, Endurance Training, Balance Training, Home Exercise Program, Safety Education & Training, Patient/Caregiver Education & Training, Equipment Evaluation, Education, & procurement Safety Devices Type of devices: Call light within reach, Nurse notified, Left in chair, All fall risk precautions in place, Patient at risk for falls Restraints Initially in place: No Therapy Time Individual Concurrent Group Co-treatment Time In 1214 Time Out 1231 Minutes 17 Timed Code Treatment Minutes: 17 Minutes Linda Adhikari PTA * Carlene Potter RN - 10/13/2019 1:09 PM EDT Neuro perfect served: pt. is very drowsy and still having BURDEN. IM team wanted me to ask you to re evaluate pt. to get yourthoughts on discharge. thanks so much. * Dwayne Hanson MD - 10/13/2019 9:30 AM EDT [facility] Teaching [facility] Inpatient Daily Progress Note Patient: Zachary Maynard Date of : 1945 Acct: [id number] Room: Admit date: 10/09/2019 Today's date: 10/13/19 Number of days in the hospital: 4 SUBJECTIVE Admitting Diagnosis: Aneurysm of infrarenal abdominal aorta (HCC) CC: Midline Lower Back Pain Pt examined at bedside. Chart & results reviewed. 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 Monitor gave Norvasc and started IV Hydralazine early Pt is heme stable and afebrile Patient sleepy and slightly drowsy when Internal Medicine entered the room Headache still present but slightly improved Back pain still present Denies chest pain, shortness of breath, and abdominal pain Pt has had a bowel movement and is passing gas ROS: Constitutional: negative for chills, fevers, sweats Respiratory: negative for cough, dyspnea on exertion, hemoptysis, shortness of breath, wheezing Cardiovascular: negative for chest pain, chest pressure/discomfort, lower extremity edema, palpitations Gastrointestinal: negative for abdominal pain, constipation, diarrhea, nausea, vomiting Neurological: negative for dizziness, positive for headache Musculoskeletal: positive for back pain BRIEF HISTORY A 74 y.o. female presents with a chief complaint of lower back pain. Past medical history of COPD, primary hypertension was transferred from [facility] for management of infrarenal abdominal aortic aneurysm and for vascular consultation. States she started having lower back pain since . Describes the pain as constant, sharp, 10out of 10 in intensity associated with nausea. Patient went to the emergency department at [facility] to have hypertensive emergency with systolics above 200 and d-dimer was elevated. CT abdomen was done which showed 3.5 infrarenal aortic aneurysm, started on Cardene drip and pain medications we re given. Patient was transferred to [facility] found to be hypoxic in upper 80s, CT PE was done to rule out PE due to elevated d-dimer which showed no PE and centrilobular emphysema. Patient is also complaining of 3-4 episodes of vomiting, slightly bilious, no diarrhea, no constipation. States she had a history of ovarian cancer with removal of bilateral oophorectomy and hysterectomy complicated byadhesions. She is also complaining of increased frequency with nocturia, polyuria but denies hematuria, pyuria. Denies any chest pain, cough, shortness of breath. COVID was done which was negative During my evaluation patient looks comfortable, afebrile, heart rate in 70s and blood pressure withsystolic in 130s and diastolic in 70s on a Cardene drip, 2 L of oxygen saturating at 98% with no significant labs. 2 sets of troponin were negative OBJECTIVE Vital Signs: BP (!) 132/56 Pulse 68 Temp 98.4 F (36.9 C) (Oral) Resp 22 Ht 5' 4 (1.626 m) Wt 155 lb 6.8 oz (70.5 kg) SpO2 94% BMI 26.68 kg/m Temp (24hrs), Av.7 F (37.6 C), Min:98.4 F (36.9 C), Max:101.6 F (38.7 C) In: 1972 Out: 2099 [Urine:2100] Physical Exam: Constitutional: This is a well developed, well nourished, 25-29.9 - Overweight 74 y.o. year old female who is alert, oriented, cooperative and in no apparent distress. Respiratory: Breath sounds bilaterally were clear to auscultation Cardiovascular: Regular without murmur Abdomen: Soft and Nontender Musculoskeletal: Back Pain Extremities: No lower extremity edema Neurological/Psychiatric: The patient's general behavior, level of consciousness, thought content and emotional status is normal. Medications: Scheduled Medications: hydrALAZINE 100 mg Oral 3 times per day spironolactone 100 mg Oral Daily amLODIPine 10 mg Oral Daily lisinopril 40 mg Oral Daily sodium chloride flush 10 mL Intravenous 2 times per day enoxaparin 40 mg Subcutaneous Daily aspirin 81 mg Oral Daily ezetimibe 10 mg Oral Nightly insulin lispro 0-6 Units Subcutaneous TID insulin lispro 0-3 Units Subcutaneous Nightly metoprolol tartrate 100 mg Oral BID Continuous Infusions: [Held by provider] niCARdipine Stopped (10/10/191946) dextrose lactated ringers 75 mL/hr at 10/13/19 0555 PRN Medicationssodium chloride, 1 spray, PRN ipratropium-albuterol, 1 ampule, Q4H PRN labetalol, 10 mg, Q4H PRN hydrALAZINE, 10 mg, Q6H PRN bbekljqhso-gmftspzfhtozi-wvpxnfpp, 1 tablet, Q4H PRN sodium chloride flush, 10 mL, PRN acetaminophen, 650 mg, Q6H PRN Or acetaminophen, 650 mg, Q6H PRN polyethylene glycol, 17 g, Daily PRN potassium chloride, 40 mEq, PRN Or potassium alternative oral replacement, 40 mEq, PRN Or potassium chloride, 10 mEq, PRN potassium chloride, 10 mEq, PRN ondansetron, 4 mg, Q8H PRN Or ondansetron, 4 mg, Q6H PRN glucose, 15 g, PRN dextrose, 12.5 g, PRN glucagon (rDNA), 1 mg, PRN dextrose, 100 mL/hr, PRN Diagnostic Labs: CBC: Recent Labs 10/11/19 0529 10/12/19 0636 10/13/19 0602 WBC 6.8 12.2* 12.3* RBC 4.71 4.32 4.87 HGB 13.7 12.7 14.5 HCT 43.6 40.5 45.5 MCV 92.6 93.8 93.4 RDW 14.3 14.7* 15.0* PLT 196 196 210 BMP: Recent Labs 10/11/19 0510/12/19 0636 10/13/19 0602 NA 135 132* 131* K 3.6* 3.3* 3.4* CL 96* 94* 90* CO2 24 26 25 BUN 13 16 16 CREATININE 0.55 0.46* 0.47* FASTING LIPID PANEL: Lab Results Component Value Date HDL 50 10/09/2019 MICROBIOLOGY: Lab Results Component Value Date/Time CULTURE NO GROWTH 16 HOURS 10/12/2019 02:17 PM Imaging: Xr Lumbar Spine (2-3 Views) Result Date: 10/10/2019 1. Subtle sclerosis subjacent to the L2 and L3 superior endplates is age- indeterminate and could represent trabecular condensation associated with acute or subacute endplate fractures. MRI of the lumbar spine is recommended for further evaluation. 2. No acute osseous abnormality of the sacrum or coccyx. 3. Osteopenia. Xr Sacrum Coccyx (min 2 Views) Result Date: 10/10/2019 1. Subtle sclerosis subjacent to the L2 and L3 superior endplates is age- indeterminate and could represent trabecular condensation associated with acute or subacute endplate fractures. MRI of the lumbar spine is recommended for further evaluation. 2. No acute osseous abnormality of the sacrum or coccyx. 3. Osteopenia. Xr Abdomen (kub) (single Ap View) Result Date: 10/09/2019 No evidence of bowel obstruction. Ct Head Wo Contrast Result Date: 10/10/2019 1. No acute intracranial abnormality. 2. Mild chronic white matter microvascular ischemic changes. Xr Chest Portable Result Date: 10/11/2019 No acute cardiopulmonary abnormality. Ct Chest Pulmonary Embolism W Contrast Result Date: 10/09/2019 No central or segmental pulmonary embolus. No acute pulmonary process. Emphysema. Us Abdomen Limited Specify Organ? Liver, Gallbladder, Pancreas Result Date: 10/09/2019 Unremarkable right upper quadrant ultrasound. Cta Head Neck W Contrast Result Date: 10/10/2019 1. No acute arterial abnormality or hemodynamically significant arterial stenosis in the head or neck. 2. No intracranial aneurysm. Mri Brain W Wo Contrast Result Date: 10/11/2019 Volume loss with chronic white matter microvascular ischemic change. Small meningioma over the right frontal lobe. ASSESSMENT & PLAN ASSESSMENT / PLAN: This is a 74 y.o. female who presented with lower back pain (midline) and found to have hypertensive emergency and infrarenal AAA of 3.5 cm. Patient admitted to inpatient status to control blood pressure and vascular recommendations Secondary Hypertension Renal artery doppler showing 60% stenosis of Right Renal Artery Renin and Aldosterone pending K+ 3.4 this am. Replacement to be given post MRI Uncontrolled - BP spike overnight - Additional Norvasc given overnight and IV hydralazine started an hour early - Currently 132/56 On Lisinopril 40 mg daily, Norvasc 10 mg daily, Hydralazine 100 mg 3 times daily, Metoprolol 100 mgtwice daily, Aldactone 100 mg Clonidine discontinued because of her mentation and excessive sleep Intractable headache and fever of unknown origin MRI showed small meningioma but does not explain the headache Patient received headache cocktail by Neurology. Appreciate them seeing the patient No plan for LP as per Neurology Blood Culture no growth, Urine Culture pending ID is on board. Appreciate their recommendations Lower back pain from possible infrarenal abdominal aortic aneurysm Pain management with NSAIDs and Tylenol No intervention as per vascular surgery Follow-up with abdominal ultrasound after 6 months with PCP Strict blood pressure control less than 130/80 long-term Continue Zetia for hyperlipidemia Continue aspirin 81 mg daily for primary prevention of ASCVD Stable COPD On 2 L of nasal cannula PRN DuoNeb DVT ppx: Lovenox PT/OT/SW: On Board Discharge Planning: Ongoing Dwayne R Valentin, MD Internal Medicine Resident, PGY-1 [facility]; [place], [place] 10/13/2019, 9:31 AM Associated attestation - Michelle Pelletier MD - 10/13/2019 11:02 PM EDT I have discussed the care of Zachary Maynard , including pertinent history and exam findings, todaywith the resident. I have seen and examined the patient and the potter elements of all parts of the encounter have been performed by me . I agree with the assessment, plan and orders as documented by the resident. Principal Problem: Aneurysm of infrarenal abdominal aorta (HCC) Active Problems: Acute intractable headache Right renal artery stenosis (HCC) Secondary hypertension Hypokalemia Resolved Problems: * No resolved hospital problems. * Overall course ; show no private branch exchange repairer time. Headache is improved Blood pressure improved Ultrasound renal duplex, concerning for unilateral renal artery stenosis Patient very sleepy Has tenderness in lower back X-ray lumbar spine done at the time of admission, concerning for possible fracture Ordering MRI lumbar spine Electronically signed by Michelle Pelletier MD * Viyr Morelos, FLAQUITO - TREASURY SPECIALIST - 10/13/2019 8:44 AM EDT NEUROLOGY INPATIENT PROGRESS NOTE 10/13/2019 Current Exam: Chart reviewed. Discussed with RN. Patient afebrile this morning. Still complaining of headache. Refused PT earlier today but has been able to get up to bedside commode per RN. Poor appetite, has been lethargic intermittently today. Brief History: Zachary Maynard is a 74 y.o. female with H/O uterine cancer, HLD, HTN, who was admitted on 10/09/2019 with lower back pain. Neurology was consulted for headache with associated photophobia, nausea, vomiting, and dizziness ongoing since Friday of last week. No prior history of headaches. The patient did also have hypertensive urgency requiring Cardene drip. CT head was done showing no acute change, CTA head and neck with no hemodynamically significant stenosis and no aneurysm. Her headache wastreated with IV Solumedrol, Reglan, Magnesium. Cardene drip was also discontinued as there was concern this could be contributing to headache. No current facility-administered medications on file prior to encounter. Current Outpatient Medications on File Prior to Encounter Medication Sig Dispense Refill metoprolol tartrate (LOPRESSOR) 50 MG tablet Take 100 mg by mouth 2 times daily ezetimibe (ZETIA) 10 MG tablet Take 10 mg by mouth nightly Allergies: Zachary Maynard is allergic to avelox [moxifloxacin]; demerol hcl [meperidine]; ciprofloxacin; nubain [nalbuphine]; phenergan [promethazine]; statins; sulfa antibiotics; and tape [adhesivetape]. Past Medical History: Diagnosis Date Cancer (HCC) uterine Hyperlipidemia Hypertension Past Surgical History: Procedure Laterality Date HYSTERECTOMY NECK SURGERY Social History: Zachary Maynard reports that she has never smoked. She has never used smokeless tobacco. She reports that she does not drink alcohol or use drugs. History reviewed. No pertinent family history. Objective: BP (!) 132/56 Pulse 68 Temp 98.4 F (36.9 C) (Oral) Resp 22 Ht 5' 4 (1.626 m) Wt 155 lb 6.8 oz (70.5 kg) SpO2 94% BMI 26.68 kg/m Blood pressure range: Systolic (24hrs), Av , Min:125 , Max:185 ; Diastolic (24hrs), Av, Min:54, Max:89 Review of Systems: Constitutional Negative for fever and chills HEENT Negative for ear discharge, ear pain, nosebleed. + headache Eyes Negative for pain and discharge. + photophobia Respiratory Negative for hemoptysis and sputum Cardiovascular Negative for orthopnea, claudication and PND Gastrointestinal Negative for abdominal pain, diarrhea, blood in stool Musculoskeletal Negative for joint pain, negative for myalgia Skin Negative for rash or itching Endo/heme/allergies Negative for polydipsia, environmental allergy Psychiatric/behavioral Negative for suicidal ideation. Patient is not anxious NEUROLOGIC EXAMINATION GENERAL Appears uncomfortable but in no distress HEENT NC/ AT NECK Supple with no meningeal signs MENTAL STATUS: Alert, oriented, intact memory, no confusion, normal speech, normal language, no hallucination or delusion CRANIAL NERVES: II - Keeps eyes closed during most of exam III,IV, - Keeps eyes closed during most of exam but does appear to have full EOMs, no ptosis V - Normal facial sensation VII - Normal facial symmetry VIII - Intact hearing IX,X - Symmetrical palate XI - Symmetrical shoulder shrug XII - Midline tongue, no atrophy MOTOR FUNCTION: Lifts all limbs equally with normal bulk, normal tone and no involuntary movements,no tremor SENSORY FUNCTION: Normal touch, normal pin CEREBELLAR FUNCTION: Intact fine motor control over upper limbs REFLEX FUNCTION: Symmetric, no perverted reflex, no Babinski sign STATION and GAIT Not tested Data: Lab Results: CBC: Recent Labs 10/11/19 0529 10/12/19 0636 10/13/19 0602 WBC 6.8 12.2* 12.3* HGB 13.7 12.7 14.5 PLT 196 196 210 BMP: Recent Labs 10/11/19 0529 10/12/19 0636 10/13/19 0602 NA 135 132* 131* K 3.6* 3.3* 3.4* CL 96* 94* 90* CO2 24 26 25 BUN 13 16 16 CREATININE 0.55 0.46* 0.47* GLUCOSE 146* 136* 113* Lab Results Component Value Date LDLCHOLESTEROL 143 (H) 10/09/2019 HDL 50 10/09/2019 ALT 15 10/09/2019 AST 11 10/09/2019 TSH 1.05 10/10/2019 LABA1C 5.5 10/09/2019 Diagnostic data reviewed: CT HEAD (10/10/19) - 1. No acute intracranial abnormality. 2. Mild chronic white matter microvascular ischemic changes. CTA HEAD AND NECK (10/10/19) - 1. No acute arterial abnormality or hemodynamically significant arterial stenosis in the head or neck. 2. No intracranial aneurysm. MRI BRAIN (10/11/19) - Volume loss with chronic white matter microvascular ischemic change. Small meningioma over the right frontal lobe. Impression: -Acute intractable headache -Hypertensive urgency -Fever; etiology unknown at this time Plan: -CT head, CTA head/neck, MRI brain negative for acute changes -IV Depacon 500mg [id number] x3 doses -Continued blood pressure management as you are doing -Patient with Tylenol and Fioricet PRN headache; patient is s/p Magnesium, Solumedrol, Reglan, Toradol, Zofran, Tylenol and Fioricet -ID is following; continue to monitor off antibiotics at this time. BC negative so far, UA negative -We will follow Please note that this note was generated using a voice recognition dictation software. Although every effort was made to ensure the accuracy of this automated dynamic etching processor, some errors in dynamic etching processor may have occurred. * Alfonso Kendrick MD - 10/13/2019 7:57 AM EDT [facility] - Progress Note Today's Date and Time: 10/13/2019, 7:57 AM Impression : Fever, etiology to be determined Intermittent Headaches, most likely side effect of the various medications being given for control of HTN. No apparent meningitis Low back pain Aneurysm infrarenal abdominal aorta Centrilobular emphysema Allergy to quinolones, sulfa Recommendations: Monitor off antibiotics Medical Decision Making/Summary/Discussion:10/13/2019 Infection Control Recommendations [place] Precautions Antimicrobial Stewardship Recommendations Discontinuation of therapy Coordination of Outpatient Care: Estimated Length of IV antimicrobials:None Patient will need Midline Catheter Insertion: no Patient will need PICC line Insertion:no Patient will need: Home IV , Infusion Center, SNF, LTAC:TBD Patient will need outpatient wound care:no Chief complaint/reason for consultation: Fever, headache-concern for meningitis History of Present Illness: Zachary Maynard is a 74 y.o.-year-old female who was initially admitted on 10/09/2019. Patient seen at the request of . INITIAL HISTORY: Patient transferred from [facility] on 10-09-19 because of low back pain and findings of an infrarenal abdominal aortic aneurysm. Developed onset of back pain on 10-07-19, associated with nausea. She was evaluated at [facility] and found to have a hypertensive emergency with systolic pressures over [address] showed a 3.5 cm infrarenal aortic aneurysm. Her BP was controlled with Cardene drip and the patient was transferred to [facility]. At [facility] patient had signs of hypoxia, and an elevated D-dimer. Her chest CT did not show a PE but showed centrilobular emphysema. She experienced a few episodes of nausea and bilious vomiting. An abdominal X ray did not show signs of obstruction. Pt indicated prior Hx of ovarian cancer with subsequent hysterectomy, bilateral salpingo-oophorectomies and complication with adhesions. X rays to exclude lumbar fracture secondary to osteopenia are inconclusive. A MRI of the lumbar spine may be required. Patient has now developed temp to 101 F along with intermittent headaches. CT, MRI of brain show age related atrophic changes and a small meningioma. She remains cogent and not exhibiting any signs of meningismus. The BP remains elevated. The headache may be a side effect of the medications being used for BP control. CURRENT EXAMINATION:10/13/19 Patient is evaluated and examined at the bedside. Afebrile to low grade fevers T max 101 F VS stable. Hypertensive. Patient is somnolent. Responds to verbal stimulus. She falls asleep while talking. She reports having fevers and chills but highest T 101 F She reports ongoing headache and low back pain which is the same as yesterday with no improvement. The patient's attendant is concerned about her COVID test. He thinks it is a false positive and is concerned about repeating the COVID test. CXR and CT chest do not support this concern. Infrarenal abdominal aortic aneurysm: No intervention as per vascular surgery. Follow-up with abdominal ultrasonogram after 6 months with PCP. Neurology: Not planning to do LP. Blood cultures on 10/12/2019 showed no growth for 18 hours. U/A on 10/11 showed turbid urine, no nitrites, leukocyte esterase- negative. She denies burning with micturition. However patient's attendant reported that she had increased frequency of urination (every 1 hour) just before she got Admitted to the hospital. Centrilobular emphysema: Stable Labs, X rays reviewed: 10/13/2019 BUN:13> 16 Cr:0.55> 0.46>0.47 WBC:6.8 > 12.2>12.3 Hb: 13.7> 12.7>14.4 Plat: 196> 196>210 Cultures: Urine: Blood: 10-12-19:x2: no growth Sputum : Wound: COVID 10-09-19: Negative Discussed with patient, RN, Neurology.. I have personally reviewed the past medical history, past surgical history, medications, social history, and family history, and I have updated the database accordingly. Past Medical History: Past Medical History: Diagnosis Date Cancer (HCC) uterine Hyperlipidemia Hypertension Past Surgical History: Past Surgical History: Procedure Laterality Date HYSTERECTOMY NECK SURGERY Medications: hydrALAZINE 100 mg Oral 3 times per day spironolactone 100 mg Oral Daily amLODIPine 10 mg Oral Daily lisinopril 40 mg Oral Daily sodium chloride flush 10 mL Intravenous 2 times per day enoxaparin 40 mg Subcutaneous Daily aspirin 81 mg Oral Daily ezetimibe 10 mg Oral Nightly insulin lispro 0-6 Units Subcutaneous TID WC insulin lispro 0-3 Units Subcutaneous Nightly metoprolol tartrate 100 mg Oral BID Social History: Social History Socioeconomic History Marital status: Spouse name: Not on file Number of children: Not on file Years of education: Not on file Highest education level: Not on file Occupational History Not on file Social Needs Financial resource strain: Not on file Food insecurity Worry: Not on file Inability: Not on file Transportation needs Medical: Not on file Non-medical: Not on file Tobacco Use Smoking status: Never Smoker Smokeless tobacco: Never Used Substance and Sexual Activity Alcohol use: No Drug use: No Sexual activity: Yes Partners: Male Lifestyle Physical activity Days per week: Not on file Minutes per session: Not on file Stress: Not on file Relationships Social connections Talks on phone: Not on file Gets together: Not on file Attends adventism service: Not on file Active member of club or organization: Not on file Attends meetings of clubs or organizations: Not on file Relationship status: Not on file Intimate partner violence Fear of current or ex partner: Not on file Emotionally abused: Not on file Physically abused: Not on file Forced sexual activity: Not on file Other Topics Concern Not on file Social History Narrative Not on file Family History: History reviewed. No pertinent family history. Allergies: Avelox [moxifloxacin]; Demerol hcl [meperidine]; Ciprofloxacin; Nubain [nalbuphine]; Phenergan [promethazine]; Statins; Sulfa antibiotics; and Tape [adhesive tape] Review of Systems: Constitutional: Low grade fever, no chills. No systemic complaints Head: Intermittent headaches Eyes: No double vision or blurry vision. No conjunctival inflammation. ENT: No sore throat or runny nose.. No hearing loss, tinnitus or vertigo. Cardiovascular: No chest pain or palpitations.No shortness of breath. No ZAVALA Lung: No shortness of breath or cough. No sputum production Abdomen: No nausea, vomiting, diarrhea, or abdominal pain.. No cramps. Genitourinary: No increased urinary frequency, or dysuria. No hematuria. No suprapubic or CVA pain Musculoskeletal: No muscle aches or pains. No joint effusions, swelling or deformities. Back pain. Hematologic: No bleeding or bruising. Neurologic: Intermittent headache, no weakness, numbness, or tingling. Integument: No rash, no ulcers. Psychiatric: No depression. Endocrine: No polyuria, no polydipsia, no polyphagia. Physical Examination : Patient Vitals for the past 8 hrs: BP Temp Temp src Pulse Resp SpO2 Weight 10/13/19 0700 (!) 132/56 98.4 F (36.9 C) Oral 68 94 % 10/13/19 0644 (!) 146/62 69 10/13/19 0557 155 lb 6.8 oz (70.5 kg) 10/13/19 0551 (!) 165/69 73 22 92 % 10/13/19 0512 (!) 154/70 73 17 92 % 10/13/19 0430 (!) 155/62 72 19 90 % 10/13/19 0426 (!) 157/69 74 22 94 % 10/13/19 0400 (!) 130/59 99.4 F (37.4 C) Axillary 70 21 94 % 10/13/19 0331 (!) 154/63 10/13/19 0300 (!) 165/63 70 21 96 % 10/13/19 0246 (!) 153/64 71 16 97 % 10/13/19 0230 (!) 146/89 72 20 96 % 10/13/19 0200 129/74 73 19 95 % 10/13/19 0130 129/77 74 22 92 % 10/13/19 0113 (!) 165/74 73 22 93 % 10/13/19 0034 (!) 156/73 71 19 93 % 10/13/19 0000 (!) 152/54 72 19 94 % General Appearance: Awake, alert, and complaining of headache, dizziness when standing Head: Normocephalic, no trauma Eyes: Pupils equal, round, reactive to light and accommodation; extraocular movements intact; sclera anicteric; conjunctivae pink. No embolic phenomena. ENT: Oropharynx clear, without erythema, exudate, or thrush. No tenderness of sinuses. Mouth/throat: mucosa pink and moist. No lesions. Dentition in good repair. Neck:Supple, without lymphadenopathy. Thyroid normal, No bruits. Pulmonary/Chest: Clear to auscultation, without wheezes, rales, or rhonchi. No dullness to percussion. Distant breath sounds. Cardiovascular: Regular rate and rhythm without murmurs, rubs, or gallops. Abdomen: Soft, non tender. Bowel sounds normal. No organomegaly All four Extremities: No cyanosis, clubbing, edema, or effusions. Neurologic: No gross sensory or motor deficits.No neck stiffness. Skin: Warm and dry with good turgor.No signs of peripheral arterial or venous insufficiency. No ulcerations. No open wounds. Medical Decision Making -Laboratory: I have independently reviewed/ordered the following labs: CBC with Differential: Recent Labs 10/12/19 0636 10/13/19 0602 WBC 12.2* 12.3* HGB 12.7 14.5 HCT 40.5 45.5 PLT 196 210 LYMPHOPCT 12* 23* MONOPCT 7 10 BMP: Recent Labs 10/12/19 0636 10/13/19 0602 NA 132* 131* K 3.3* 3.4* CL 94* 90* CO2 26 25 BUN 16 16 CREATININE 0.46* 0.47* MG 2.2 2.2 Hepatic Function Panel: No results for input(s): PROT, LABALBU, BILIDIR, IBILI, BILITOT, ALKPHOS, ALT, AST in the last 72 hours. No results for input(s): RPR in the last 72 hours. No results for input(s): HIV in the last 72 hours. No results for input(s): BC in the last 72 hours. Lab Results Component Value Date MUCUS NOT REPORTED 10/12/2019 RBC 4.87 10/13/2019 TRICHOMONAS NOT REPORTED 10/12/2019 WBC 12.3 10/13/2019 YEAST NOT REPORTED 10/12/2019 TURBIDITY TURBID 10/12/2019 Lab Results Component Value Date CREATININE 0.47 10/13/2019 GLUCOSE 113 10/13/2019 Medical Decision Making-Imaging: EXAMINATION: MRI OF THE BRAIN WITHOUT AND WITH CONTRAST 10/11/2019 1:44 pm TECHNIQUE: Multiplanar multisequence MRI of the head/brain was performed without and with the administration of intravenous contrast. COMPARISON: None. HISTORY: ORDERING SYSTEM PROVIDED HISTORY: new onset headache with associated photophobia, nausea, vomiting, dizziness TECHNOLOGIST PROVIDED HISTORY: new onset headache with associated photophobia, nausea, vomiting, dizziness FINDINGS: INTRACRANIAL STRUCTURES/VENTRICLES: There is no acute infarct. No bleed or shift is identified. There is a small enhancing extra-axial nodule over the right frontal convexity measuring 5.8 mm in diameter on image number 7 of series 11, most consistent with a meningioma. There is volume loss with mild chronic white matter microvascular ischemic disease. The sellar/suprasellar regions appear unremarkable. The normal signal voids within the major intracranial vessels appear maintained. ORBITS: The visualized portion of the orbits demonstrate no acute abnormality. SINUSES: The visualized paranasal sinuses and mastoid air cells are well aerated. BONES/SOFT TISSUES: The bone marrow signal intensity appears normal. The soft tissues demonstrate no acute abnormality. Impression Volume loss with chronic white matter microvascular ischemic change. Small meningioma over the right frontal lobe. EXAMINATION: THREE XRAY VIEWS OF THE SACRUM/COCCYX; THREE XRAY VIEWS OF THE LUMBAR SPINE 10/10/2019 5:40 pm COMPARISON: None. HISTORY: ORDERING SYSTEM PROVIDED HISTORY: rule out fracture TECHNOLOGIST PROVIDED HISTORY: rule out fracture; ORDERING SYSTEM PROVIDED HISTORY: back pain, rule out fracture or osteoporotic changes TECHNOLOGIST PROVIDED HISTORY: back pain, rule out fracture or osteoporotic changes FINDINGS: Lumbar spine: The bones are diffusely osteopenic. There is subtle sclerosis subjacent to the L2 and L3 superior endplates. Vertebral body heights are maintained. Alignment is normal. Disc space heights are maintained. There is excreted contrast in the urinary tract. Aortic atherosclerotic calcifications are present. Sacrum/coccyx: The bones are diffusely osteopenic. No acute fracture is seen. Alignment is normal. There is excreted contrast in the urinary bladder. Atherosclerotic calcifications are present. Impression 1. Subtle sclerosis subjacent to the L2 and L3 superior endplates is age-indeterminate and could represent trabecular condensation associated with acute or subacute endplate fractures. MRI of the lumbar spine is recommended for further evaluation. 2. No acute osseous abnormality of the sacrum or coccyx. 3. Osteopenia. EXAMINATION: CT OF THE HEAD WITHOUT CONTRAST 10/10/2019 4:09 pm TECHNIQUE: CT of the head was performed without the administration of intravenous contrast. Dose modulation, iterative reconstruction, and/or weight based adjustment of the mA/kV was utilized to reduce the radiation dose to as low as reasonably achievable. COMPARISON: None. HISTORY: ORDERING SYSTEM PROVIDED HISTORY: worsened headache TECHNOLOGIST PROVIDED HISTORY: worsened headache Reason for Exam: worsened headache FINDINGS: BRAIN/VENTRICLES: There is no acute intracranial hemorrhage, mass effect or midline shift. No abnormal extra-axial fluid collection. The salmeron-white differentiation is maintained without evidence of an acute infarct. There is no evidence of hydrocephalus. Mild chronic white matter microvascular ischemic changes are present. ORBITS: The visualized portion of the orbits demonstrate no acute abnormality. SINUSES: The visualized paranasal sinuses and mastoid air cells demonstrate no acute abnormality. SOFT TISSUES/SKULL: No acute abnormality of the visualized skull or soft tissues. Impression 1. No acute intracranial abnormality. 2. Mild chronic white matter microvascular ischemic changes. EXAMINATION: CTA OF THE HEAD AND NECK WITH CONTRAST 10/10/2019 4:10 pm: TECHNIQUE: CTA of the head and neck was performed with the administration of intravenous contrast. Multiplanar reformatted images are provided for review. MIP images are provided for review. Stenosis of the internal carotid arteries measured using NASCET criteria. Dose modulation, iterative reconstruction, and/or weight based adjustment of the mA/kV was utilized to reduce the radiation dose to as low as reasonably achievable. COMPARISON: None. HISTORY: ORDERING SYSTEM PROVIDED HISTORY: evaluate for stenosis or anuerysm. New onset headache, vertigo, dizziness TECHNOLOGIST PROVIDED HISTORY: evaluate for stenosis or anuerysm. New onset headache, vertigo, dizziness Reason for Exam: eval for stenosis or anuerysm Acuity: Acute Type of Exam: Initial FINDINGS: CTA NECK: AORTIC ARCH/ARCH VESSELS: [id number] atherosclerotic plaque at the arch arch and involving the descending thoracic aorta without aneurysm or dissection. Conventional 3 vessel arch anatomy. No significant stenosis or acute abnormality of the innominate or subclavian arteries. CAROTID ARTERIES: Minimal atherosclerotic plaque involving the common carotid arteries without significant stenosis. 20% stenosis of the proximal right internal carotid secondary to atherosclerotic plaque. Minimal atherosclerotic plaque involving the left carotid bulb without stenosis. External carotid arteries are patent. No dissection. VERTEBRAL ARTERIES: No dissection, arterial injury, or significant stenosis. SOFT TISSUES: The lung apices are clear other than moderate emphysematous changes no cervical or superior mediastinal lymphadenopathy. The larynx and pharynx are unremarkable. No acute abnormality of the salivary and thyroid glands. BONES: There is no acute fracture or suspect osseous lesion. There is C5-6 anterior interbody fusion. CTA HEAD: ANTERIOR CIRCULATION: No significant stenosis of the intracranial internal carotid, anterior cerebral, or middle cerebral arteries. No aneurysm. POSTERIOR CIRCULATION: No significant stenosis of the vertebral, basilar, or posterior cerebral arteries. No aneurysm. OTHER: No dural venous sinus thrombosis on this non-dedicated study. BRAIN: No mass effect or midline shift. No extra-axial fluid collection. The salmeron-white differentiation is maintained. Impression 1. No acute arterial abnormality or hemodynamically significant arterial stenosis in the head or neck. 2. No intracranial aneurysm. EXAMINATION: ONE SUPINE XRAY VIEW(S) OF THE ABDOMEN 10/09/2019 7:17 pm COMPARISON: None. HISTORY: ORDERING SYSTEM PROVIDED HISTORY: r/o SBO TECHNOLOGIST PROVIDED HISTORY: r/o SBO Reason for Exam: port Supine FINDINGS: Nonspecific, nonobstructive bowel gas pattern with paucity of bowel gas. Atherosclerotic calcifications. Retained contrast in the urinary bladder. No acute osseous abnormality. Impression No evidence of bowel obstruction. EXAMINATION: CTA OF THE CHEST 10/09/2019 5:52 am TECHNIQUE: CTA of the chest was performed after the administration of intravenous contrast. Multiplanar reformatted images are provided for review. MIP images are provided for review. Dose modulation, iterative reconstruction, and/or weight based adjustment of the mA/kV was utilized to reduce the radiation dose to as low as reasonably achievable. COMPARISON: Chest radiograph June 27, 2017. HISTORY: ORDERING SYSTEM PROVIDED HISTORY: hypoxic TECHNOLOGIST PROVIDED HISTORY: hypoxic Reason for Exam: hypoxic Acuity: Acute Type of Exam: Initial FINDINGS: Chest wall: No axillary adenopathy. Upper Abdomen: No adrenal nodule. Mediastinum: Cardiomegaly. Trace pericardial fluid. No adenopathy. Atherosclerotic calcification of the thoracic aorta. Pulmonary Arteries: No central or segmental pulmonary embolus. Lungs: Centrilobular emphysema. Dependent lung changes. No pleural effusions. No focal consolidation. Bones: Thoracic spine degenerative changes. Impression No central or segmental pulmonary embolus. No acute pulmonary process. Emphysema. Medical Decision [id number]: Medical Decision Making-Other: Note: Labs, medications, radiologic studies were reviewed with personal review of films Large amounts of data were reviewed Discussed with nursing Staff, business continuity planner Infection Control and Prevention measures reviewed All prior entries were reviewed Administer medications as ordered Prognosis: Guarded Discharge planning reviewed Follow up as outpatient. Thank you for allowing us to participate in the care of this patient. Please call with questions. Dickson Hutchinson DPM Pager: - Office: * Divina Ferris RN - 10/13/2019 3:00 AM EDT Heavy Truck Driver contacted internal med regarding pt blood pressure. BP at 2000 was 185/77, scheduled PO hydralazine and lopressor administered. BP at 2200 was 149/57. BP at 2345 was 171/70, PRN IV hydralazineand PO fioricet administered, BP down to 152/54 with recheck. BP back to 165/74 around 0115, PRN IVlabatolol administered, 129/77 with recheck. BP is now 153/64. There are no more PRN BP medicationsto administer. New order for PO 10mg norvasc. Heavy Truck Driver will continue to monitor BP and pain. * Alfonso Kendrick MD - 10/12/2019 4:32 PM EDT [facility] - Progress Note Today's Date and Time: 10/12/2019, 4:32 PM Impression : Fever, etiology to be determined Intermittent Headaches, most likely side effect of the various medications being given for control of HTN. No apparent meningitis Low back pain Aneurysm infrarenal abdominal aorta Centrilobular emphysema Allergy to quinolones, sulfa Recommendations: Monitor off antibiotics Blood, urine cultures Medical Decision Making/Summary/Discussion:10/12/2019 Infection Control Recommendations [place] Precautions Antimicrobial Stewardship Recommendations Discontinuation of therapy Coordination of Outpatient Care: Estimated Length of IV antimicrobials:None Patient will need Midline Catheter Insertion: no Patient will need PICC line Insertion:no Patient will need: Home IV , Infusion Center, SNF, LTAC:TBD Patient will need outpatient wound care:no Chief complaint/reason for consultation: Fever, headache-concern for meningitis History of Present Illness: Zachary Maynard is a 74 y.o.-year-old female who was initially admitted on 10/09/2019. Patient seen at the request of . INITIAL HISTORY: Patient transferred from [facility] on 10-09-19 because of low back pain and findings of an infrarenal abdominal aortic aneurysm. Developed onset of back pain on 10-07-19, associated with nausea. She was evaluated at [facility] and found to have a hypertensive emergency with systolic pressures over [address] showed a 3.5 cm infrarenal aortic aneurysm. Her BP was controlled with Cardene drip and the patient was transferred to [facility]. At [facility] patient had signs of hypoxia, and an elevated D-dimer. Her chest CT did not show a PE but showed centrilobular emphysema. She experienced a few episodes of nausea and bilious vomiting. An abdominal X ray did not show signs of obstruction. Pt indicated prior Hx of ovarian cancer with subsequent hysterectomy, bilateral salpingo-oophorectomies and complication with adhesions. X rays to exclude lumbar fracture secondary to osteopenia are inconclusive. A MRI of the lumbar spine may be required. Patient has now developed temp to 101 F along with intermittent headaches. CT, MRI of brain show age related atrophic changes and a small meningioma. She remains cogent and not exhibiting any signs of meningismus. The BP remains elevated. The headache may be a side effect of the medications being used for BP control. CURRENT EXAMINATION:10/12/19 Patient is evaluated and examined at the bedside. Afebrile to low grade fevers. Temperature max is 101 VS stable. Hypertensive. Patient is off nasal oxygen.On room air Labs, X rays reviewed: 10/12/2019 BUN:13> 16 Cr:0.55> 0.46 WBC:6.8 > 12.2 Hb: 13.7> 12.7 Plat: 196> 196 Cultures: Urine: Blood: 10-12-19: Pending Sputum : Wound: COVID 10-09-19: Negative Discussed with patient, RN, Neurology.. I have personally reviewed the past medical history, past surgical history, medications, social history, and family history, and I have updated the database accordingly. Past Medical History: Past Medical History: Diagnosis Date Cancer (HCC) uterine Hyperlipidemia Hypertension Past Surgical History: Past Surgical History: Procedure Laterality Date HYSTERECTOMY NECK SURGERY Medications: hydrALAZINE 100 mg Oral 3 times per day spironolactone 100 mg Oral Daily amLODIPine 10 mg Oral Daily lisinopril 40 mg Oral Daily sodium chloride flush 10 mL Intravenous 2 times per day enoxaparin 40 mg Subcutaneous Daily aspirin 81 mg Oral Daily ezetimibe 10 mg Oral Nightly insulin lispro 0-6 Units Subcutaneous TID WC insulin lispro 0-3 Units Subcutaneous Nightly metoprolol tartrate 100 mg Oral BID Social History: Social History Socioeconomic History Marital status: Spouse name: Not on file Number of children: Not on file Years of education: Not on file Highest education level: Not on file Occupational History Not on file Social Needs Financial resource strain: Not on file Food insecurity Worry: Not on file Inability: Not on file Transportation needs Medical: Not on file Non-medical: Not on file Tobacco Use Smoking status: Never Smoker Smokeless tobacco: Never Used Substance and Sexual Activity Alcohol use: No Drug use: No Sexual activity: Yes Partners: Male Lifestyle Physical activity Days per week: Not on file Minutes per session: Not on file Stress: Not on file Relationships Social connections Talks on phone: Not on file Gets together: Not on file Attends adventism service: Not on file Active member of club or organization: Not on file Attends meetings of clubs or organizations: Not on file Relationship status: Not on file Intimate partner violence Fear of current or ex partner: Not on file Emotionally abused: Not on file Physically abused: Not on file Forced sexual activity: Not on file Other Topics Concern Not on file Social History Narrative Not on file Family History: History reviewed. No pertinent family history. Allergies: Avelox [moxifloxacin]; Demerol hcl [meperidine]; Ciprofloxacin; Nubain [nalbuphine]; Phenergan [promethazine]; Statins; Sulfa antibiotics; and Tape [adhesive tape] Review of Systems: Constitutional: Low grade fever, no chills. No systemic complaints Head: Intermittent headaches Eyes: No double vision or blurry vision. No conjunctival inflammation. ENT: No sore throat or runny nose.. No hearing loss, tinnitus or vertigo. Cardiovascular: No chest pain or palpitations.No shortness of breath. No ZAVALA Lung: No shortness of breath or cough. No sputum production Abdomen: No nausea, vomiting, diarrhea, or abdominal pain.. No cramps. Genitourinary: No increased urinary frequency, or dysuria. No hematuria. No suprapubic or CVA pain Musculoskeletal: No muscle aches or pains. No joint effusions, swelling or deformities. Back pain. Hematologic: No bleeding or bruising. Neurologic: Intermittent headache, no weakness, numbness, or tingling. Integument: No rash, no ulcers. Psychiatric: No depression. Endocrine: No polyuria, no polydipsia, no polyphagia. Physical Examination : Patient Vitals for the past 8 hrs: BP Temp Temp src Pulse Resp SpO2 10/12/19 1230 (!) 179/74 101.6 F (38.7 C) Oral 76 20 91 % 10/12/19 0837 (!) 149/62 71 General Appearance: Awake, alert, and complaining of headache, dizziness when standing Head: Normocephalic, no trauma Eyes: Pupils equal, round, reactive to light and accommodation; extraocular movements intact; sclera anicteric; conjunctivae pink. No embolic phenomena. ENT: Oropharynx clear, without erythema, exudate, or thrush. No tenderness of sinuses. Mouth/throat: mucosa pink and moist. No lesions. Dentition in good repair. Neck:Supple, without lymphadenopathy. Thyroid normal, No bruits. Pulmonary/Chest: Clear to auscultation, without wheezes, rales, or rhonchi. No dullness to percussion. Distant breath sounds. Cardiovascular: Regular rate and rhythm without murmurs, rubs, or gallops. Abdomen: Soft, non tender. Bowel sounds normal. No organomegaly All four Extremities: No cyanosis, clubbing, edema, or effusions. Neurologic: No gross sensory or motor deficits.No neck stiffness. Skin: Warm and dry with good turgor.No signs of peripheral arterial or venous insufficiency. No ulcerations. No open wounds. Medical Decision Making -Laboratory: I have independently reviewed/ordered the following labs: CBC with Differential: Recent Labs 10/11/19 0529 10/12/19 0636 WBC 6.8 12.2* HGB 13.7 12.7 HCT 43.6 40.5 PLT 196 196 LYMPHOPCT 14* 12* MONOPCT 1* 7 BMP: Recent Labs 10/10/19 0627 10/11/19 0529 10/12/19 0636 NA 132* 135 132* K 3.5* 3.6* 3.3* CL 97* 96* 94* CO2 25 24 26 BUN 14 13 16 CREATININE 0.50 0.55 0.46* MG 2.1 -- 2.2 Hepatic Function Panel: No results for input(s): PROT, LABALBU, BILIDIR, IBILI, BILITOT, ALKPHOS, ALT, AST in the last 72 hours. No results for input(s): RPR in the last 72 hours. No results for input(s): HIV in the last 72 hours. No results for input(s): BC in the last 72 hours. Lab Results Component Value Date MUCUS NOT REPORTED 10/09/2019 RBC 4.32 10/12/2019 TRICHOMONAS NOT REPORTED 10/09/2019 WBC 12.2 10/12/2019 YEAST NOT REPORTED 10/09/2019 TURBIDITY CLEAR 10/09/2019 Lab Results Component Value Date CREATININE 0.46 10/12/2019 GLUCOSE 136 10/12/2019 Medical Decision Making-Imaging: EXAMINATION: MRI OF THE BRAIN WITHOUT AND WITH CONTRAST 10/11/2019 1:44 pm TECHNIQUE: Multiplanar multisequence MRI of the head/brain was performed without and with the administration of intravenous contrast. COMPARISON: None. HISTORY: ORDERING SYSTEM PROVIDED HISTORY: new onset headache with associated photophobia, nausea, vomiting, dizziness TECHNOLOGIST PROVIDED HISTORY: new onset headache with associated photophobia, nausea, vomiting, dizziness FINDINGS: INTRACRANIAL STRUCTURES/VENTRICLES: There is no acute infarct. No bleed or shift is identified. There is a small enhancing extra-axial nodule over the right frontal convexity measuring 5.8 mm in diameter on image number 7 of series 11, most consistent with a meningioma. There is volume loss with mild chronic white matter microvascular ischemic disease. The sellar/suprasellar regions appear unremarkable. The normal signal voids within the major intracranial vessels appear maintained. ORBITS: The visualized portion of the orbits demonstrate no acute abnormality. SINUSES: The visualized paranasal sinuses and mastoid air cells are well aerated. BONES/SOFT TISSUES: The bone marrow signal intensity appears normal. The soft tissues demonstrate no acute abnormality. Impression Volume loss with chronic white matter microvascular ischemic change. Small meningioma over the right frontal lobe. EXAMINATION: THREE XRAY VIEWS OF THE SACRUM/COCCYX; THREE XRAY VIEWS OF THE LUMBAR SPINE 10/10/2019 5:40 pm COMPARISON: None. HISTORY: ORDERING SYSTEM PROVIDED HISTORY: rule out fracture TECHNOLOGIST PROVIDED HISTORY: rule out fracture; ORDERING SYSTEM PROVIDED HISTORY: back pain, rule out fracture or osteoporotic changes TECHNOLOGIST PROVIDED HISTORY: back pain, rule out fracture or osteoporotic changes FINDINGS: Lumbar spine: The bones are diffusely osteopenic. There is subtle sclerosis subjacent to the L2 and L3 superior endplates. Vertebral body heights are maintained. Alignment is normal. Disc space heights are maintained. There is excreted contrast in the urinary tract. Aortic atherosclerotic calcifications are present. Sacrum/coccyx: The bones are diffusely osteopenic. No acute fracture is seen. Alignment is normal. There is excreted contrast in the urinary bladder. Atherosclerotic calcifications are present. Impression 1. Subtle sclerosis subjacent to the L2 and L3 superior endplates is age-indeterminate and could represent trabecular condensation associated with acute or subacute endplate fractures. MRI of the lumbar spine is recommended for further evaluation. 2. No acute osseous abnormality of the sacrum or coccyx. 3. Osteopenia. EXAMINATION: CT OF THE HEAD WITHOUT CONTRAST 10/10/2019 4:09 pm TECHNIQUE: CT of the head was performed without the administration of intravenous contrast. Dose modulation, iterative reconstruction, and/or weight based adjustment of the mA/kV was utilized to reduce the radiation dose to as low as reasonably achievable. COMPARISON: None. HISTORY: ORDERING SYSTEM PROVIDED HISTORY: worsened headache TECHNOLOGIST PROVIDED HISTORY: worsened headache Reason for Exam: worsened headache FINDINGS: BRAIN/VENTRICLES: There is no acute intracranial hemorrhage, mass effect or midline shift. No abnormal extra-axial fluid collection. The salmeron-white differentiation is maintained without evidence of an acute infarct. There is no evidence of hydrocephalus. Mild chronic white matter microvascular ischemic changes are present. ORBITS: The visualized portion of the orbits demonstrate no acute abnormality. SINUSES: The visualized paranasal sinuses and mastoid air cells demonstrate no acute abnormality. SOFT TISSUES/SKULL: No acute abnormality of the visualized skull or soft tissues. Impression 1. No acute intracranial abnormality. 2. Mild chronic white matter microvascular ischemic changes. EXAMINATION: CTA OF THE HEAD AND NECK WITH CONTRAST 10/10/2019 4:10 pm: TECHNIQUE: CTA of the head and neck was performed with the administration of intravenous contrast. Multiplanar reformatted images are provided for review. MIP images are provided for review. Stenosis of the internal carotid arteries measured using NASCET criteria. Dose modulation, iterative reconstruction, and/or weight based adjustment of the mA/kV was utilized to reduce the radiation dose to as low as reasonably achievable. COMPARISON: None. HISTORY: ORDERING SYSTEM PROVIDED HISTORY: evaluate for stenosis or anuerysm. New onset headache, vertigo, dizziness TECHNOLOGIST PROVIDED HISTORY: evaluate for stenosis or anuerysm. New onset headache, vertigo, dizziness Reason for Exam: eval for stenosis or anuerysm Acuity: Acute Type of Exam: Initial FINDINGS: CTA NECK: AORTIC ARCH/ARCH VESSELS: Kerz-cl-ryziweqa atherosclerotic plaque at the arch arch and involving the descending thoracic aorta without aneurysm or dissection. Conventional 3 vessel arch anatomy. No significant stenosis or acute abnormality of the innominate or subclavian arteries. CAROTID ARTERIES: Minimal atherosclerotic plaque involving the common carotid arteries without significant stenosis. 20% stenosis of the proximal right internal carotid secondary to atherosclerotic plaque. Minimal atherosclerotic plaque involving the left carotid bulb without stenosis. External carotid arteries are patent. No dissection. VERTEBRAL ARTERIES: No dissection, arterial injury, or significant stenosis. SOFT TISSUES: The lung apices are clear other than moderate emphysematous changes no cervical or superior mediastinal lymphadenopathy. The larynx and pharynx are unremarkable. No acute abnormality of the salivary and thyroid glands. BONES: There is no acute fracture or suspect osseous lesion. There is C5-6 anterior interbody fusion. CTA HEAD: ANTERIOR CIRCULATION: No significant stenosis of the intracranial internal carotid, anterior cerebral, or middle cerebral arteries. No aneurysm. POSTERIOR CIRCULATION: No significant stenosis of the vertebral, basilar, or posterior cerebral arteries. No aneurysm. OTHER: No dural venous sinus thrombosis on this non-dedicated study. BRAIN: No mass effect or midline shift. No extra-axial fluid collection. The salmeron-white differentiation is maintained. Impression 1. No acute arterial abnormality or hemodynamically significant arterial stenosis in the head or neck. 2. No intracranial aneurysm. EXAMINATION: ONE SUPINE XRAY VIEW(S) OF THE ABDOMEN 10/09/2019 7:17 pm COMPARISON: None. HISTORY: ORDERING SYSTEM PROVIDED HISTORY: r/o SBO TECHNOLOGIST PROVIDED HISTORY: r/o SBO Reason for Exam: port Supine FINDINGS: Nonspecific, nonobstructive bowel gas pattern with paucity of bowel gas. Atherosclerotic calcifications. Retained contrast in the urinary bladder. No acute osseous abnormality. Impression No evidence of bowel obstruction. EXAMINATION: CTA OF THE CHEST 10/09/2019 5:52 am TECHNIQUE: CTA of the chest was performed after the administration of intravenous contrast. Multiplanar reformatted images are provided for review. MIP images are provided for review. Dose modulation, iterative reconstruction, and/or weight based adjustment of the mA/kV was utilized to reduce the radiation dose to as low as reasonably achievable. COMPARISON: Chest radiograph June 27, 2017. HISTORY: ORDERING SYSTEM PROVIDED HISTORY: hypoxic TECHNOLOGIST PROVIDED HISTORY: hypoxic Reason for Exam: hypoxic Acuity: Acute Type of Exam: Initial FINDINGS: Chest wall: No axillary adenopathy. Upper Abdomen: No adrenal nodule. Mediastinum: Cardiomegaly. Trace pericardial fluid. No adenopathy. Atherosclerotic calcification of the thoracic aorta. Pulmonary Arteries: No central or segmental pulmonary embolus. Lungs: Centrilobular emphysema. Dependent lung changes. No pleural effusions. No focal consolidation. Bones: Thoracic spine degenerative changes. Impression No central or segmental pulmonary embolus. No acute pulmonary process. Emphysema. Medical Decision Eeiouc-Ryxdhlyk-Ygqbd: Medical Decision Making-Other: Note: Labs, medications, radiologic studies were reviewed with personal review of films Large amounts of data were reviewed Discussed with nursing Staff, business continuity planner Infection Control and Prevention measures reviewed All prior entries were reviewed Administer medications as ordered Prognosis: Guarded Discharge planning reviewed Follow up as outpatient. Thank you for allowing us to participate in the care of this patient. Please call with questions. Alfonso Kendrick MD Pager: - Office: * Malissa Anderson, BUTTON DECORATING MACHINE OPERATOR - 10/12/2019 2:55 PM EDT Physical Therapy DATE: 10/12/2019 NAME: Zachary Maynard : 1945 Patient not seen this date for Physical Therapy due to: [] Blood transfusion in progress [] Hemodialysis [] Patient Declined [] Spine Precautions [] Strict Bedrest [] Surgery/ Procedure [] Testing [x] Other; RN cx d/t pt not feeling well and has a fever. [] PT being discontinued at this time. Patient independent. No further needs. [] PT being discontinued at this time as the patient has been transferred to palliative care. No further needs. Malissa Anderson, BUTTON DECORATING MACHINE OPERATOR * Montserrat Finnegan OTA - 10/12/2019 2:26 PM EDT Occupational Therapy Not Seen Note DATE: 10/12/2019 Name: Zachary Maynard : 1945 Patient not available for Occupational Therapy due to: RN cx d/t pt not feeling well and has a fever. Next Scheduled Treatment: 10/13/2019 * Denys Morris MD - 10/12/2019 1:53 PM EDT [facility] Inpatient Daily Progress Note Patient: Zachary Maynard Date of : 1945 Acct: [id number] Room: Admit date: 10/09/2019 Today's date: 10/12/19 Number of days in the hospital: 3 SUBJECTIVE Admitting Diagnosis: Aneurysm of infrarenal abdominal aorta (HCC) CC: Midline lower back pain Pt examined at bedside. Chart & results reviewed. Patient blood pressure still uncontrolled morning blood pressure is 149 x 90 Overnight patient blood pressures are in systolic 170 and diastolic 100s received PRN hydralazine and labetalol Patient looks sleepy today but alert and oriented on awake Will discontinue clonidine in context of more sleepy Neurology not planning for an LP ID is on board ROS: Constitutional: negative for chills, fevers, sweats Respiratory: negative for cough, dyspnea on exertion, hemoptysis, shortness of breath, wheezing Cardiovascular: negative for chest pain, chest pressure/discomfort, lower extremity edema, palpitations Gastrointestinal: negative for abdominal pain, constipation, diarrhea, nausea, vomiting Neurological: negative for dizziness, headache OBJECTIVE Vital Signs: BP (!) 179/74 Pulse 76 Temp 101.6 F (38.7 C) (Oral) Resp 20 Ht 5' 4 (1.626 m) Wt 150 lb 5.7 oz (68.2 kg) SpO2 91% BMI 25.81 kg/m Temp (24hrs), Av.2 F (37.9 C), Min:98.2 F (36.8 C), Max:101.9 F (38.8 C) In: 366 Out: 950 [Urine:950] Physical Exam: Constitutional: This is a well developed, well nourished, 25-29.9 - Overweight 74 y.o. year old female who is alert, oriented, cooperative and in no apparent distress. Head:normocephalic and atraumatic. EENT: PERRLA. No conjunctival injections. Septum was midline, mucosa was without erythema, exudatesor cobblestoning. No thrush was noted. Neck: Supple without thyromegaly. No elevated JVP. Trachea was midline. Respiratory: Chest was symmetrical without dullness to percussion. Breath sounds bilaterally were clear to auscultation. There were no wheezes, rhonchi or rales. There is no intercostal retraction oruse of accessory muscles. No egophony noted. Cardiovascular: Regular without murmur, clicks, gallops or rubs. Abdomen: Slightly rounded and soft without organomegaly. No rebound, rigidity or guarding was appreciated. Lymphatic: No lymphadenopathy. Musculoskeletal: Normal curvature of the spine. No gross muscle weakness. Extremities: No lower extremity edema, ulcerations, tenderness, varicosities or erythema. Muscle size, tone and strength are normal. No involuntary movements are noted. Skin: Warm and dry. Good color, turgor and pigmentation. No lesions or scars. No cyanosis or clubbing Neurological/Psychiatric: The patient's general behavior, level of consciousness, thought content and emotional status is normal. Medications: Scheduled Medications: hydrALAZINE 100 mg Oral 3 times per day spironolactone 100 mg Oral Daily amLODIPine 10 mg Oral Daily lisinopril 40 mg Oral Daily sodium chloride flush 10 mL Intravenous 2 times per day enoxaparin 40 mg Subcutaneous Daily aspirin 81 mg Oral Daily ezetimibe 10 mg Oral Nightly insulin lispro 0-6 Units Subcutaneous TID WC insulin lispro 0-3 Units Subcutaneous Nightly metoprolol tartrate 100 mg Oral BID Continuous Infusions: [Held by provider] niCARdipine Stopped (10/10/191946) dextrose lactated ringers 75 mL/hr at 10/11/19 2316 PRN Medicationssodium chloride, 1 spray, PRN ipratropium-albuterol, 1 ampule, Q4H PRN labetalol, 10 mg, Q4H PRN hydrALAZINE, 10 mg, Q6H PRN ufkczyxayn-duqdxlhziapce-vysuilqg, 1 tablet, Q4H PRN sodium chloride flush, 10 mL, PRN acetaminophen, 650 mg, Q6H PRN Or acetaminophen, 650 mg, Q6H PRN polyethylene glycol, 17 g, Daily PRN potassium chloride, 40 mEq, PRN Or potassium alternative oral replacement, 40 mEq, PRN Or potassium chloride, 10 mEq, PRN potassium chloride, 10 mEq, PRN ondansetron, 4 mg, Q8H PRN Or ondansetron, 4 mg, Q6H PRN glucose, 15 g, PRN dextrose, 12.5 g, PRN glucagon (rDNA), 1 mg, PRN dextrose, 100 mL/hr, PRN Diagnostic Labs: CBC: Recent Labs 10/10/19 0627 10/11/19 0529 10/12/19 0636 WBC 7.4 6.8 12.2* RBC 4.53 4.71 4.32 HGB 13.5 13.7 12.7 HCT 42.7 43.6 40.5 MCV 94.3 92.6 93.8 RDW 14.5* 14.3 14.7* PLT 170 196 196 BMP: Recent Labs 10/10/19 0627 10/11/19 0529 10/12/19 0636 NA 132* 135 132* K 3.5* 3.6* 3.3* CL 97* 96* 94* CO2 25 24 26 BUN 14 13 16 CREATININE 0.50 0.55 0.46* BNP: No results for input(s): BNP in the last 72 hours. PT/INR: No results for input(s): PROTIME, INR in the last 72 hours. APTT: No results for input(s): APTT in the last 72 hours. CARDIAC ENZYMES: No results for input(s): CKMB, CKMBINDEX, TROPONINI in the last 72 hours. Invalid input(s): CKTOTAL;3 FASTING LIPID PANEL: Lab Results Component Value Date HDL 50 10/09/2019 LIVER PROFILE: No results for input(s): AST, ALT, ALB, BILIDIR, BILITOT, ALKPHOS in the last 72 hours. MICROBIOLOGY: No results found for: CULTURE Imaging: Xr Lumbar Spine (2-3 Views) Result Date: 10/10/2019 1. Subtle sclerosis subjacent to the L2 and L3 superior endplates is age- indeterminate and could represent trabecular condensation associated with acute or subacute endplate fractures. MRI of the lumbar spine is recommended for further evaluation. 2. No acute osseous abnormality of the sacrum or coccyx. 3. Osteopenia. Xr Sacrum Coccyx (min 2 Views) Result Date: 10/10/2019 1. Subtle sclerosis subjacent to the L2 and L3 superior endplates is age- indeterminate and could represent trabecular condensation associated with acute or subacute endplate fractures. MRI of the lumbar spine is recommended for further evaluation. 2. No acute osseous abnormality of the sacrum or coccyx. 3. Osteopenia. Xr Abdomen (kub) (single Ap View) Result Date: 10/09/2019 No evidence of bowel obstruction. Ct Head Wo Contrast Result Date: 10/10/2019 1. No acute intracranial abnormality. 2. Mild chronic white matter microvascular ischemic changes. Xr Chest Portable Result Date: 10/11/2019 No acute cardiopulmonary abnormality. Ct Chest Pulmonary Embolism W Contrast Result Date: 10/09/2019 No central or segmental pulmonary embolus. No acute pulmonary process. Emphysema. Us Abdomen Limited Specify Organ? Liver, Gallbladder, Pancreas Result Date: 10/09/2019 Unremarkable right upper quadrant ultrasound. Cta Head Neck W Contrast Result Date: 10/10/2019 1. No acute arterial abnormality or hemodynamically significant arterial stenosis in the head or neck. 2. No intracranial aneurysm. Mri Brain W Wo Contrast Result Date: 10/11/2019 Volume loss with chronic white matter microvascular ischemic change. Small meningioma over the right frontal lobe. ASSESSMENT & PLAN ASSESSMENT / PLAN: IMPRESSION This is a 74 y.o. female who presented with lower back pain (midline) and found to have hypertensive emergency and infrarenal AAA of 3.5 cm. Patient admitted to inpatient status to control blood pressure and vascular recommendations Lower back pain from possible infrarenal abdominal aortic aneurysm Pain management with NSAIDs and Tylenol No intervention as per vascular surgery Follow-up with abdominal ultrasound after 6 months with PCP Strict blood pressure control less than 130/80 long-term Continue Zetia for hyperlipidemia Continue aspirin 81 mg daily for primary prevention of ASCVD Hypertensive emergency Uncontrolled On lisinopril 40 mg daily, Norvasc 10 mg daily, hydralazine 100 mg 3 times daily, metoprolol 100 mgtwice daily Will discontinue clonidine because of her mentation and excessive sleep Intractable headache and fever of unknown origin MRI showed small meningioma but does not explain the headache Patient received headache cocktail by neurology No plan for LP as per neurology Will order blood cultures 2 sets and urine culture ID is on board Stable COPD On 2 L of nasal cannula PRN DuoNeb Hypokalemia will replace potassium Lovenox for DVT prophylaxis Denys Morris MD Internal Medicine Resident, PGY-3 [facility]; [place], [place] 10/12/2019, 1:53 PM * Michelle Pelletier MD - 10/12/2019 1:07 PM EDT Patient seen and examined Little sleepy, clonidine discontinued Hypertension controlled Headache improved MRI brain reviewed concerning for meningioma Work-up for secondary hypertension progress * Viry Morelos, FLAQUITO - TREASURY SPECIALIST - 10/12/2019 6:51 AM EDT NEUROLOGY INPATIENT PROGRESS NOTE 10/12/2019 Current Exam: Chart reviewed. Discussed with RN. Patient developed fever overnight with Tmax 101.9. ID was consulted who recommend to monitor off antibiotics. BC and UA pending. Patient reported resolution of headache this morning to nursing staff but has intermittently complained of it throughout the day. Overall headache is improved as compared to yesterday. MRI brain with small meningioma over right frontallobe, atrophy with CSVID. Brief History: Zachary Maynard is a 74 y.o. female with H/O uterine cancer, HLD, HTN, who was admitted on 10/09/2019 with lower back pain. Neurology was consulted for headache with associated photophobia, nausea, vomiting, and dizziness ongoing since Friday of last week. No prior history of headaches. The patient did also have hypertensive urgency requiring Cardene drip. CT head was done showing no acute change, CTA head and neck with no hemodynamically significant stenosis and no aneurysm. Her headache wastreated with IV Solumedrol, Reglan, Magnesium. Cardene drip was also discontinued as there was concern this could be contributing to headache. No current facility-administered medications on file prior to encounter. Current Outpatient Medications on File Prior to Encounter Medication Sig Dispense Refill metoprolol tartrate (LOPRESSOR) 50 MG tablet Take 100 mg by mouth 2 times daily ezetimibe (ZETIA) 10 MG tablet Take 10 mg by mouth nightly Allergies: Zachary Maynard is allergic to avelox [moxifloxacin]; demerol hcl [meperidine]; ciprofloxacin; nubain [nalbuphine]; phenergan [promethazine]; statins; sulfa antibiotics; and tape [adhesivetape]. Past Medical History: Diagnosis Date Cancer (HCC) uterine Hyperlipidemia Hypertension Past Surgical History: Procedure Laterality Date HYSTERECTOMY NECK SURGERY Social History: Zachary Maynard reports that she has never smoked. She has never used smokeless tobacco. She reports that she does not drink alcohol or use drugs. History reviewed. No pertinent family history. Objective: BP (!) 155/58 Pulse 74 Temp 99.4 F (37.4 C) (Oral) Resp 18 Ht 5' 4 (1.626 m) Wt 150 lb 5.7 oz (68.2 kg) SpO2 91% BMI 25.81 kg/m Blood pressure range: Systolic (24hrs), Av , Min:142 , Max:189 ; Diastolic (24hrs), Av, Min:56, Max:76 Review of Systems: Constitutional Negative for fever and chills HEENT Negative for ear discharge, ear pain, nosebleed. + headache Eyes Negative for pain and discharge. + photophobia Respiratory Negative for hemoptysis and sputum Cardiovascular Negative for orthopnea, claudication and PND Gastrointestinal Negative for abdominal pain, diarrhea, blood in stool Musculoskeletal Negative for joint pain, negative for myalgia Skin Negative for rash or itching Endo/heme/allergies Negative for polydipsia, environmental allergy Psychiatric/behavioral Negative for suicidal ideation. Patient is not anxious NEUROLOGIC EXAMINATION GENERAL Appears uncomfortable but in no distress HEENT NC/ AT NECK Supple with no meningeal signs MENTAL STATUS: Alert, oriented, intact memory, no confusion, normal speech, normal language, no hallucination or delusion CRANIAL NERVES: II - Keeps eyes closed during most of exam III,IV, - Keeps eyes closed during most of exam but does appear to have full EOMs, no ptosis V - Normal facial sensation VII - Normal facial symmetry VIII - Intact hearing IX,X - Symmetrical palate XI - Symmetrical shoulder shrug XII - Midline tongue, no atrophy MOTOR FUNCTION: Lifts all limbs equally with normal bulk, normal tone and no involuntary movements,no tremor SENSORY FUNCTION: Normal touch, normal pin CEREBELLAR FUNCTION: Intact fine motor control over upper limbs REFLEX FUNCTION: Symmetric, no perverted reflex, no Babinski sign STATION and GAIT Not tested Data: Lab Results: CBC: Recent Labs 10/10/19 0627 10/11/19 0529 WBC 7.4 6.8 HGB 13.5 13.7 PLT 170 196 BMP: Recent Labs 10/10/19 0627 10/11/19 0529 NA 132* 135 K 3.5* 3.6* CL 97* 96* CO2 25 24 BUN 14 13 CREATININE 0.50 0.55 GLUCOSE 123* 146* Lab Results Component Value Date LDLCHOLESTEROL 143 (H) 10/09/2019 HDL 50 10/09/2019 ALT 15 10/09/2019 AST 11 10/09/2019 TSH 1.05 10/10/2019 LABA1C 5.5 10/09/2019 Diagnostic data reviewed: CT HEAD (10/10/19) - 1. No acute intracranial abnormality. 2. Mild chronic white matter microvascular ischemic changes. CTA HEAD AND NECK (10/10/19) - 1. No acute arterial abnormality or hemodynamically significant arterial stenosis in the head or neck. 2. No intracranial aneurysm. MRI BRAIN (10/11/19) - Volume loss with chronic white matter microvascular ischemic change. Small meningioma over the right frontal lobe. Impression: -Acute intractable headache; gradually improving -Hypertensive urgency -Fever; etiology unknown at this time Plan: -CT head, CTA head/neck, MRI brain negative for acute changes -Continued blood pressure management as you are doing -Patient with Tylenol and Fioricet PRN headache; patient is s/p Magnesium, Solumedrol, Reglan, Toradol, Zofran, Tylenol and Fioricet -ID is following; continue to monitor off antibiotics at this time. UA and BC pending -We will follow Please note that this note was generated using a voice recognition dictation software. Although every effort was made to ensure the accuracy of this automated dynamic etching processor, some errors in dynamic etching processor may have occurred. * Divina Ferris RN - 10/11/2019 10:20 PM EDT Heavy Truck Driver contacted internal med regarding pt headache of 3/10. Pt has IV toradol and reglan ordered. Pt is alert and oriented x2. Heavy Truck Driver instructed to hold IV toradol and reglan and to administer PRN tylenol for the headache. Will continue to monitor. * Divina Ferris RN - 10/11/2019 10:20 PM EDT Heavy Truck Driver contacted internal med regarding blood pressure 161/62 and temp of 99.9 after administering scheduled clonidine and lopressor. Pt rating headache 3/10. Heavy Truck Driver instructed to hold scheduled IV toradol and reglan. 0435- Heavy Truck Driver contacted internal med regarding BP. Heavy Truck Driver unable to keep SBP <160. Heavy Truck Driver administered PRN IV hydralazine at 2315 for a pressure in the 170s, pressure went to the 160s then back up.IV labetalol administered at 0315 for SBP in the low 180s. Pressure still in the 170s. No new orders at this time. Heavy Truck Driver instructed to continue to monitor. 0530- IV hydralazine and PO fioricet administered. No new orders at this time. Will continue to monitor BP. * Divina Ferris RN - 10/11/2019 10:15 PM EDT Heavy Truck Driver received call from Dr. Kendrick regarding pt condition. New order to discontinue IR lumbar puncture that was scheduled for 10/11, internal med updated. * Carlene Potter RN - 10/11/2019 8:19 PM EDT [employer] IM resident: pt. had a temp of 101.8. she is complaining of BURDEN, even when her B/P is in the 130's/140's. she hasn't wanted to eat much. lack of appetite. IIntermittent N/V. she has dizziness and weakness when standing. she sleeps a lot. She states all these symptoms are new. would you like to order anything? doyou think maybe she has COVID and maybe had a false negative? Will await orders and update Night RN on this perfect Serve. Thanks. Response from Resident: Can you re check temp? It was apparently normal 1 min prior. Please also give tylenol. Will get CXRas well thanks Replied: pt already received Tylenol but yes we can recheck * Dwayne Hanson MD - 10/11/2019 2:46 PM EDT [facility] Inpatient Daily Progress Note Patient: Zachary Maynard Date of : 1945 Acct: [id number] Room: Admit date: 10/09/2019 Today's date: 10/11/19 Number of days in the hospital: 2 SUBJECTIVE Admitting Diagnosis: Aneurysm of infrarenal abdominal aorta (HCC) CC: Lower Back Pain Pt examined at bedside. Chart & results reviewed. No acute episodes overnight Patient is heme stable and afebrile Headache present on top of head and comes and goes 10/10 headache when it is present Small Nose Bleed present Back Pain slightly improved Denies having a bowel movement or passing gas ROS: Constitutional: negative for chills, fevers, sweats Respiratory: negative for cough, dyspnea on exertion, hemoptysis, shortness of breath, wheezing Cardiovascular: negative for chest pain, chest pressure/discomfort, lower extremity edema, palpitations Gastrointestinal: negative for abdominal pain, diarrhea, nausea, vomiting / Positive for Constipation Musculoskeletal: Positive for back pain Neurological: negative for dizziness, Positive for headache BRIEF HISTORY A 74 y.o. female presents with a chief complaint of lower back pain. Past medical history of COPD, primary hypertension was transferred from [facility] for management of infrarenal abdominal aortic aneurysm and for vascular consultation. States she started having lower back pain since . Describes the pain as constant, sharp, 10out of 10 in intensity associated with nausea. Patient went to the emergency department at [facility] to have hypertensive emergency with systolics above 200 and d-dimer was elevated. CT abdomen was done which showed 3.5 infrarenal aortic aneurysm, started on Cardene drip and pain medications we re given. Patient was transferred to [facility] found to be hypoxic in upper 80s, CT PE was done to rule out PE due to elevated d-dimer which showed no PE and centrilobular emphysema. Patient is also complaining of 3-4 episodes of vomiting, slightly bilious, no diarrhea, no constipation. States she had a history of ovarian cancer with removal of bilateral oophorectomy and hysterectomy complicated byadhesions. She is also complaining of increased frequency with nocturia, polyuria but denies hematuria, pyuria. Denies any chest pain, cough, shortness of breath. COVID was done which was negative During my evaluation patient looks comfortable, afebrile, heart rate in 70s and blood pressure withsystolic in 130s and diastolic in 70s on a Cardene drip, 2 L of oxygen saturating at 98% with no significant labs. 2 sets of troponin were negative OBJECTIVE Vital Signs: BP (!) 152/56 Pulse 70 Temp 97.5 F (36.4 C) (Oral) Resp 17 Ht 5' 4 (1.626 m) Wt 153 lb 3.5 oz (69.5 kg) SpO2 94% BMI 26.30 kg/m Temp (24hrs), Av.2 F (36.8 C), Min:97.5 F (36.4 C), Max:98.6 F (37 C) In: 3240.6 Out: 700 [Urine:700] Physical Exam: Constitutional: This is a well developed, well nourished, 25-29.9 - Overweight 74 y.o. year old female who is alert, oriented, cooperative and in no apparent distress. Respiratory: Breath sounds bilaterally were clear to auscultation Cardiovascular: Regular without murmur Abdomen: Soft and Nontender Extremities: No lower extremity edema Neurological/Psychiatric: The patient's general behavior, level of consciousness, thought content and emotional status is normal. Medications: Scheduled Medications: cloNIDine 0.1 mg Oral TID ketorolac 15 mg Intravenous Q6H And diphenhydrAMINE 12.5 mg Intravenous Q6H And metoclopramide 5 mg Intravenous Q6H spironolactone 100 mg Oral Daily amLODIPine 10 mg Oral Daily lisinopril 40 mg Oral Daily sodium chloride flush 10 mL Intravenous 2 times per day enoxaparin 40 mg Subcutaneous Daily aspirin 81 mg Oral Daily ezetimibe 10 mg Oral Nightly ipratropium-albuterol 1 ampule Inhalation Q4H While awake insulin lispro 0-6 Units Subcutaneous TID insulin lispro 0-3 Units Subcutaneous Nightly metoprolol tartrate 100 mg Oral BID Continuous Infusions: [Held by provider] niCARdipine Stopped (10/10/191946) dextrose lactated ringers 75 mL/hr at 10/10/191956 PRN Medicationslabetalol, 10 mg, Q4H PRN hydrALAZINE, 10 mg, Q6H PRN vzpbgvoalp-apmatikkhjjqf-oeersupc, 1 tablet, Q4H PRN sodium chloride flush, 10 mL, PRN acetaminophen, 650 mg, Q6H PRN Or acetaminophen, 650 mg, Q6H PRN polyethylene glycol, 17 g, Daily PRN potassium chloride, 40 mEq, PRN Or potassium alternative oral replacement, 40 mEq, PRN Or potassium chloride, 10 mEq, PRN potassium chloride, 10 mEq, PRN ondansetron, 4 mg, Q8H PRN Or ondansetron, 4 mg, Q6H PRN glucose, 15 g, PRN dextrose, 12.5 g, PRN glucagon (rDNA), 1 mg, PRN dextrose, 100 mL/hr, PRN Diagnostic Labs: CBC: Recent Labs 10/09/1944710/10/1962610/11/19 0529 WBC 7.7 7.4 6.8 RBC 4.78 4.53 4.71 HGB 14.2 13.5 13.7 HCT 44.6 42.7 43.6 MCV 93.3 94.3 92.6 RDW 14.2 14.5* 14.3 PLT 202 170 196 BMP: Recent Labs 10/09/1944710/10/1962610/11/19 0529 NA 141 132* 135 K 3.9 3.5* 3.6* CL 99 97* 96* CO2 24 25 24 BUN 17 14 13 CREATININE 0.63 0.50 0.55 FASTING LIPID PANEL: Lab Results Component Value Date HDL 50 10/09/2019 LIVER PROFILE: Recent Labs 10/09/19447 AST 11 ALT 15 BILITOT 0.39 ALKPHOS 90 Imaging: Xr Lumbar Spine (2-3 Views) Result Date: 10/10/2019 1. Subtle sclerosis subjacent to the L2 and L3 superior endplates is age- indeterminate and could represent trabecular condensation associated with acute or subacute endplate fractures. MRI of the lumbar spine is recommended for further evaluation. 2. No acute osseous abnormality of the sacrum or coccyx. 3. Osteopenia. Xr Sacrum Coccyx (min 2 Views) Result Date: 10/10/2019 1. Subtle sclerosis subjacent to the L2 and L3 superior endplates is age- indeterminate and could represent trabecular condensation associated with acute or subacute endplate fractures. MRI of the lumbar spine is recommended for further evaluation. 2. No acute osseous abnormality of the sacrum or coccyx. 3. Osteopenia. Xr Abdomen (kub) (single Ap View) Result Date: 10/09/2019 No evidence of bowel obstruction. Ct Head Wo Contrast Result Date: 10/10/2019 1. No acute intracranial abnormality. 2. Mild chronic white matter microvascular ischemic changes. Ct Chest Pulmonary Embolism W Contrast Result Date: 10/09/2019 No central or segmental pulmonary embolus. No acute pulmonary process. Emphysema. Us Abdomen Limited Specify Organ? Liver, Gallbladder, Pancreas Result Date: 10/09/2019 Unremarkable right upper quadrant ultrasound. Cta Head Neck W Contrast Result Date: 10/10/2019 1. No acute arterial abnormality or hemodynamically significant arterial stenosis in the head or neck. 2. No intracranial aneurysm. ASSESSMENT & PLAN ASSESSMENT / PLAN: Resistant Hypertension BP 172/75 Norvasc 10 mg, Apresoline injection 10 mg, Lisinopril 40 mg, Lopressor 100 mg, Aldactone 100 mg Renin and Aldosterone levels ordered Renal Artery Doppler ordered Will continue to monitor Headaches Neurology consulted. Appreciate their recommendations. CT of head negative CTA of head and neck negative MRI of brain active Will consider LP Lower back pain from possible infrarenal abdominal aortic aneurysm Pain management with NSAIDs and Tylenol No intervention as per vascular surgery Follow-up with abdominal ultrasound after 6 months with PCP Strict blood pressure control less than 130/80 long-term Continue Zetia for hyperlipidemia Follow-up lipid profile Will start patient on aspirin 81 mg daily for primary prevention of ASCVD Stable COPD On 2 L of nasal cannula PRN DuoNeb DVT ppx: Lovenox PT/OT/SW: On Board Discharge Planning: Ongoing pending Neurology Clearance Dwayne Hanson MD Internal Medicine Resident, PGY-1 [facility]; [place], [place] 10/11/2019, 2:46 PM * Michelle Pelletier MD - 10/11/2019 1:43 PM EDT Patient seen and examined Has abdominal articulators Headache work-up in progress, neurology following Plan for MRI brain, may need lumbar puncture Resistant hypertension, hypokalemia We will do work-up for secondary hypertension Renin / Aldosterone level Renal artery Doppler Urine and serum metanephrines * Radha Vogel OT - 10/11/2019 1:30 PM EDT Occupational Therapy Occupational Therapy Initial Assessment Date: 10/11/2019 Patient Name: Zachary Maynard : 1945 Date of Service: 10/11/2019 Discharge Recommendations: No occupational therapy recommended at discharge. Assessment Performance deficits / Impairments: Decreased functional mobility ;Decreased ADL status;Decreased high-level IADLs;Decreased endurance Treatment Diagnosis: AAA Prognosis: Good Decision Making: Medium Complexity Patient Education: pt ed on POC, purpose of eval, importance of movement, safety during functional transfers/functional mobility, benefits of being out of bed. good return REQUIRES OT FOLLOW UP: Yes Activity Tolerance Activity Tolerance: Patient Tolerated treatment well Safety Devices Safety Devices in place: Yes Type of devices: Call light within reach;Left in chair;Gait belt Restraints Initially in place: No Patient Diagnosis(es): The primary encounter diagnosis was Abdominal aortic aneurysm (AAA) without rupture (HCC). Diagnoses of Acute low back pain, unspecified back pain laterality, unspecified whether sciatica present, Vertigo, Nausea and vomiting, intractability of vomiting not specified, unspecified vomiting type, and Hypertensive urgency were also pertinent to this visit. has a past medical history of Cancer (HCC), Hyperlipidemia, and Hypertension. has a past surgical history that includes Hysterectomy and Neck surgery. Treatment Diagnosis: AAA Restrictions Restrictions/Precautions Restrictions/Precautions: Fall Risk Required Braces or Orthoses?: No Position Activity Restriction Other position/activity restrictions: up as tolerated. keep SBP <140 Subjective General Patient assessed for rehabilitation services?: Yes Family / Caregiver Present: Yes(pt present for duration of session) Diagnosis: AAA General Comment Comments: RN ok'd for therapy this morning. Pt agreeable to participate in session and cooperative/pleasant throughout Patient Currently in Pain: Yes Pain Assessment Pain Assessment: 0-10 Pain Level: 7 Pain Type: Acute pain Pain Location: Back Non-Pharmaceutical Pain Intervention(s): Ambulation/Increased Activity;Distraction;Therapeutic presence Response to Pain Intervention: Patient Satisfied Oxygen Therapy O2 Device: None (Room air) Social/Functional History Social/Functional History Lives With: Spouse(great granddaughter (9y/o)) Type of Home: House Home Layout: One level Home Access: Stairs to enter with rails Entrance Stairs - Number of Steps: 3 Entrance Stairs - Rails: Right Bathroom Shower/Tub: Tub/Shower unit Bathroom Toilet: Handicap height Home Equipment: Cane, 4 wheeled walker, Rolling walker(pt reported no use of DME at baseline) Receives Help From: Family ADL Assistance: Independent Homemaking Assistance: Independent Homemaking Responsibilities: Yes(pt reported completes yard work) Meal Prep Responsibility: Primary Laundry Responsibility: Primary Cleaning Responsibility: Primary Ambulation Assistance: Independent Transfer Assistance: Independent Active Pharmacovigilance Safety Expert: Yes Occupation: Retired Additional Comments: pt reported able to walk around grocery store Objective Vision: Impaired Vision Exceptions: Wears glasses at all times Hearing: Within functional limits Orientation Overall Orientation Status: Within Functional Limits Balance Sitting Balance: Modified independent (~15 minutes on eOB, on commode and in chair) Standing Balance: Contact guard assistance Standing Balance Time: ~2 minutes Activity: pt completed stand-pivot transfer to commode from bed and then bed to chair Comment: pt with no LOB, but reported dizziness with movement Toilet Transfers Toilet - Technique: Stand pivot Equipment Used: Standard bedside commode Toilet Transfer: Stand by assistance ADL Feeding: Independent Grooming: Independent UE Bathing: Supervision LE Bathing: Contact guard assistance UE Dressing: Supervision LE Dressing: Contact guard assistance Toileting: Stand by assistance(pt used commode during session with SBA for transfer and while completing jinny-care) Tone RUE RUE Tone: Normotonic Tone LUE LUE Tone: Normotonic Coordination Movements Are Fluid And Coordinated: Yes Bed mobility Supine to Sit: Stand by assistance Sit to Supine: (pt retired to chair at end of session) Scooting: Stand by assistance Transfers Sit to stand: Stand by assistance Stand to sit: Stand by assistance Cognition Overall Cognitive Status: WFL Sensation Overall Sensation Status: WFL LUE AROM (degrees) LUE AROM : WFL Left Hand AROM (degrees) Left Hand AROM: WFL RUE AROM (degrees) RUE AROM : WFL Right Hand AROM (degrees) Right Hand AROM: WFL LUE Strength Gross LUE Strength: WFL L Hand General: 4+/5 RUE Strength Gross RUE Strength: WFL R Hand General: 4+/5 Plan Plan Times per week: 2-3 visits AM-PAC Score AM-PAC Inpatient Daily Activity Raw Score: 20 (10/11/19 1327) AM-PAC Inpatient ADL T-Scale Score : 42.03 (10/11/191326) ADL Inpatient CMS 0-100% Score: 38.32 (10/11/191326) ADL Inpatient CMS G-Code Modifier : CJ (10/11/191326) Goals Short term goals Time Frame for Short term goals: pt will, by discharge Short term goal 1: complete LB ADLs and toileting tasks with supervision and set up Short term goal 2: complete UB ADLs and grooming tasks independently Short term goal 3: increase activity tolerance to 20+ minutes in order to participate in daily tasks Short term goal 4: dem supervision during functional transfers/functional mobility Short term goal 5: dem ~6 minutes dynamic standing tolerance with supervision in order to complete functional tasks Therapy Time Individual Concurrent Group Co-treatment Time In 954 Time Out 1020 Minutes 25 Timed Code Treatment Minutes: 8 Minutes Radha Vogel OTR/L * Usman Arambual, PT - 10/11/2019 12:17 PM EDT Physical Therapy Facility/Department: [place] [id number] Initial Assessment NAME: Zachary Maynard : 1945 Chief Complaint Patient presents with Abdominal Pain Back Pain Date of Service: 10/11/2019 Discharge Recommendations: Further therapy recommended at discharge. PT Equipment Recommendations Equipment Needed: No Assessment Body structures, Functions, Activity limitations: Decreased functional mobility ;Decreased strength;Decreased balance;Decreased endurance Assessment: grossly SBA to CGA< amb 1' CGA no AD. Pt c/o some dizziness, subsidedwhen seated. Ptwould benfit from continued acute PT to address deficits. Prognosis: Good Decision Making: Medium Complexity PT Education: Plan of Care;PT Role;General Safety REQUIRES PT FOLLOW UP: Yes Activity Tolerance Activity Tolerance: Patient Tolerated treatment well Activity Tolerance: c/o minimal dizziness, states dizziness limiting. Patient Diagnosis(es): The primary encounter diagnosis was Abdominal aortic aneurysm (AAA) without rupture (HCC). Diagnoses of Acute low back pain, unspecified back pain laterality, unspecified whether sciatica present, Vertigo, Nausea and vomiting, intractability of vomiting not specified, unspecified vomiting type, and Hypertensive urgency were also pertinent to this visit. has a past medical history of Cancer (HCC), Hyperlipidemia, and Hypertension. has a past surgical history that includes Hysterectomy and Neck surgery. Restrictions Restrictions/Precautions Restrictions/Precautions: General Precautions, Fall Risk, Up as Tolerated Required Braces or Orthoses?: No Vision/Hearing Vision: Impaired Vision Exceptions: Wears glasses at all times Hearing: Within functional limits Subjective General Chart Reviewed: Yes Patient assessed for rehabilitation services?: Yes Response To Previous Treatment: Not applicable Family / Caregiver Present: Yes() Follows Commands: Within Functional Limits General Comment Comments: OT co-eval Subjective Subjective: RN and pt agreeable to PT. Pt alert in bed upon arrival. Pain Screening Patient Currently in Pain: Yes Pain Assessment Pain Assessment: 0-10 Pain Level: 7 Pain Type: Acute pain Pain Location: Back(Pt reports she thinks is sore from the bed.) Non-Pharmaceutical Pain Intervention(s): Ambulation/Increased Activity;Distraction;Emotional support Response to Pain Intervention: Patient Satisfied Vital Signs Patient Currently in Pain: Yes Pre Treatment Pain Screening Intervention List: Patient able to continue with treatment Orientation Social/Functional History Social/Functional History Lives With: Spouse(great granddaughter (9y/o)) Type of Home: House Home Layout: One level Home Access: Stairs to enter with rails Entrance Stairs - Number of Steps: 3 Entrance Stairs - Rails: Right Bathroom Shower/Tub: Tub/Shower unit Bathroom Toilet: Handicap height Home Equipment: Cane, 4 wheeled walker, Rolling walker(pt reported no use of DME at baseline) Receives Help From: Family ADL Assistance: Independent Homemaking Assistance: Independent Homemaking Responsibilities: Yes(pt reported completes yard work) Meal Prep Responsibility: Primary Laundry Responsibility: Primary Cleaning Responsibility: Primary Ambulation Assistance: Independent Transfer Assistance: Independent Active Pharmacovigilance Safety Expert: Yes Occupation: Retired Additional Comments: pt reported able to walk around grocery store Cognition Objective AROM RLE (degrees) RLE AROM: WFL AROM LLE (degrees) LLE AROM : WFL AROM RUE (degrees) RUE AROM : WFL AROM LUE (degrees) LUE AROM : WFL Strength RLE Strength RLE: WFL Strength LLE Strength LLE: WFL Strength RUE Comment: antigravity, see OT Strength LUE Comment: antigravity, see OT Sensation Overall Sensation Status: WFL(Pt denies any numbness or tingling) Bed mobility Supine to Sit: Stand by assistance Sit to Supine: (left in chair) Scooting: Stand by assistance Transfers Sit to Stand: Contact guard assistance Stand to sit: Contact guard assistance Ambulation Ambulation?: Yes Ambulation 1 Surface: level tile Device: No Device Assistance: Contact guard assistance Quality of Gait: 1' to commode Balance Posture: Good Sitting - Static: Good Sitting - Dynamic: Good Standing - Static: Good;- Standing - Dynamic: Fair;+ Comments: no AD used Exercises Comments: toileted, did own jinny care Plan Plan Times per week: 5x/wk Current Treatment Recommendations: Strengthening, Functional Mobility Training, Transfer Training, Gait Training, Endurance Training, Balance Training, Home Exercise Program, Safety Education & Training, Patient/Caregiver Education & Training, Equipment Evaluation, Education, & procurement Safety Devices Type of devices: Call light within reach, Nurse notified, Left in chair, All fall risk precautions in place, Patient at risk for falls Restraints Initially in place: No AM-PAC Score AM-PAC Inpatient Mobility Raw Score : 20 (10/11/191215) AM-PAC Inpatient T-Scale Score : 47.67 (10/11/191215) Mobility Inpatient CMS 0-100% Score: 35.83 (10/11/191215) Mobility Inpatient CMS G-Code Modifier : CJ (10/11/191215) Goals Short term goals Time Frame for Short term goals: 14 visits Short term goal 1: Pt will be I bed mobility Short term goal 2: Pt will be Johnathon transfers Short term goal 3: Pt will be Johnathon amb 300' RW or least restrictive AD Short term goal 4: Pt will navigate 6 steps Johnathon R rail Therapy Time Individual Concurrent Group Co-treatment Time In 956 Time Out 1022 Minutes 25 Timed Code Treatment Minutes: 8 Minutes Usman Arambula, PT * Carlene Potter RN - 10/11/2019 12:[address] Pleletier notified of pt. Claustrophobia and her needing an MRI. Orders received. * Viry Morelos APRN - TREASURY SPECIALIST - 10/11/2019 7:24 AM EDT NEUROLOGY INPATIENT PROGRESS NOTE 10/11/2019 Current Exam: Chart reviewed. Discussed with RN. Patient reports improvement in headache, currently 10. She reports improved photophobia; denies nausea or vomiting. She is still dizzy, which she describes as lightheadedness upon standing. She is unsure if Antivert helped at all yesterday. MRI brain pending. Blood pressures elevated, 170s at time of exam. Brief History: Zachary Maynard is a 74 y.o. female with H/O uterine cancer, HLD, HTN, who was admitted on 10/09/2019 with lower back pain. Neurology was consulted for headache with associated photophobia, nausea, vomiting, and dizziness ongoing since Friday of last week. No prior history of headaches. The patient did also have hypertensive urgency requiring Cardene drip. CT head was done showing no acute change, CTA head and neck with no hemodynamically significant stenosis and no aneurysm. Her headache wastreated with IV Solumedrol, Reglan, Magnesium. Cardene drip was also discontinued as there was concern this could be contributing to headache. No current facility-administered medications on file prior to encounter. Current Outpatient Medications on File Prior to Encounter Medication Sig Dispense Refill metoprolol tartrate (LOPRESSOR) 50 MG tablet Take 100 mg by mouth 2 times daily ezetimibe (ZETIA) 10 MG tablet Take 10 mg by mouth nightly Allergies: Zachary Maynard is allergic to avelox [moxifloxacin]; demerol hcl [meperidine]; ciprofloxacin; nubain [nalbuphine]; phenergan [promethazine]; statins; sulfa antibiotics; and tape [adhesivetape]. Past Medical History: Diagnosis Date Cancer (HCC) uterine Hyperlipidemia Hypertension Past Surgical History: Procedure Laterality Date HYSTERECTOMY NECK SURGERY Social History: Zachary Maynard reports that she has never smoked. She has never used smokeless tobacco. She reports that she does not drink alcohol or use drugs. History reviewed. No pertinent family history. Objective: BP (!) 158/84 Pulse 61 Temp 98.5 F (36.9 C) (Oral) Resp 16 Ht 5' 4 (1.626 m) Wt 153 lb 3.5 oz (69.5 kg) SpO2 92% BMI 26.30 kg/m Blood pressure range: Systolic (24hrs), Av , Min:126 , Max:167 ; Diastolic (24hrs), Av, Min:51, Max:84 Review of Systems: Constitutional Negative for fever and chills HEENT Negative for ear discharge, ear pain, nosebleed. + headache Eyes Negative for pain and discharge. + photophobia Respiratory Negative for hemoptysis and sputum Cardiovascular Negative for orthopnea, claudication and PND Gastrointestinal Negative for abdominal pain, diarrhea, blood in stool Musculoskeletal Negative for joint pain, negative for myalgia Skin Negative for rash or itching Endo/heme/allergies Negative for polydipsia, environmental allergy Psychiatric/behavioral Negative for suicidal ideation. Patient is not anxious NEUROLOGIC EXAMINATION GENERAL Appears comfortable and in no distress HEENT NC/ AT NECK Supple MENTAL STATUS: Alert, oriented, intact memory, no confusion, normal speech, normal language, no hallucination or delusion CRANIAL NERVES: II - Visual elias intact to confrontation III,IV, - EOMs full, no afferent defect, no MIGUEL, no ptosis V - Normal facial sensation VII - Normal facial symmetry VIII - Intact hearing IX,X - Symmetrical palate XI - Symmetrical shoulder shrug XII - Midline tongue, no atrophy MOTOR FUNCTION: Lifts all limbs equally with normal bulk, normal tone and no involuntary movements,no tremor SENSORY FUNCTION: Normal touch, normal pin CEREBELLAR FUNCTION: Intact fine motor control over upper limbs REFLEX FUNCTION: Symmetric, no perverted reflex, no Babinski sign STATION and GAIT Not tested Data: Lab Results: CBC: Recent Labs 10/09/1944710/10/1927 10/11/19 0529 WBC 7.7 7.4 6.8 HGB 14.2 13.5 13.7 PLT 202 170 196 BMP: Recent Labs 10/09/1944710/10/19 0627 10/11/19 0529 NA 141 132* 135 K 3.9 3.5* 3.6* CL 99 97* 96* CO2 24 25 24 BUN 17 14 13 CREATININE 0.63 0.50 0.55 GLUCOSE 208* 123* 146* Lab Results Component Value Date LDLCHOLESTEROL 143 (H) 10/09/2019 HDL 50 10/09/2019 ALT 15 10/09/2019 AST 11 10/09/2019 TSH 1.05 10/10/2019 LABA1C 5.5 10/09/2019 Diagnostic data reviewed: CT HEAD (10/10/19) - 1. No acute intracranial abnormality. 2. Mild chronic white matter microvascular ischemic changes. CTA HEAD AND NECK (10/10/19) - 1. No acute arterial abnormality or hemodynamically significant arterial stenosis in the head or neck. 2. No intracranial aneurysm. Impression: -Acute intractable headache -Hypertensive urgency Plan: -CT head, CTA head negative for acute changes -MRI brain pending -Will give migraine cocktail of Toradol 15mg, Reglan 5mg, Benadryl 12.5mg [id number] x3 -Continued blood pressure management as you are doing -May consider LP through IR for persistent headache -We will follow Please note that this note was generated using a voice recognition dictation software. Although every effort was made to ensure the accuracy of this automated dynamic etching processor, some errors in dynamic etching processor may have occurred. * Marely Guardado RN - 10/10/2019 9:18 PM EDT Perfect served customer service and sales consultant intermed: Patient is due to get 100mg Lopressor but her heart rate is hanging around 58, her BP is 152/62 right now, Just verifying, do you want me to give the whole 100MG ? Thanks Reply:Give half a tablet 10/10/19 9:17 PM so 50mg? just verifying Read 9:17 PM 10/10/19 9:17 PM Yes please 50mg lopressor given, will continue to monitor. * Dwayne Hanson MD - 10/10/2019 11:58 AM EDT [facility] Inpatient Daily Progress Note Patient: Zachary Maynard Date of : 1945 Acct: [id number] Room: Admit date: 10/09/2019 Today's date: 10/10/19 Number of days in the hospital: 1 SUBJECTIVE Admitting Diagnosis: Aneurysm of infrarenal abdominal aorta (HCC) CC: Lower Back Pain Pt examined at bedside. Chart & results reviewed. No acute episodes overnight Pt is heme stable and afebrile BP under control Headache 10 since morning Back pain has not improved much Denies passing gas and having a bowel movement ROS: Constitutional: negative for chills, fevers, sweats Respiratory: negative for cough, dyspnea on exertion, hemoptysis, shortness of breath, wheezing Cardiovascular: negative for chest pain, chest pressure/discomfort, lower extremity edema, palpitations Gastrointestinal: negative for abdominal pain, constipation, diarrhea, nausea, vomiting Musculoskeletal: Positive for back pain Neurological: negative for dizziness, positive for headache BRIEF HISTORY A 74 y.o. female presents with a chief complaint of lower back pain. Past medical history of COPD, primary hypertension was transferred from [facility] for management of infrarenal abdominal aortic aneurysm and for vascular consultation. States she started having lower back pain since . Describes the pain as constant, sharp, 10out of 10 in intensity associated with nausea. Patient went to the emergency department at [facility] to have hypertensive emergency with systolics above 200 and d-dimer was elevated. CT abdomen was done which showed 3.5 infrarenal aortic aneurysm, started on Cardene drip and pain medications we re given. Patient was transferred to [facility] found to be hypoxic in upper 80s, CT PE was done to rule out PE due to elevated d-dimer which showed no PE and centrilobular emphysema. Patient is also complaining of 3-4 episodes of vomiting, slightly bilious, no diarrhea, no constipation. States she had a history of ovarian cancer with removal of bilateral oophorectomy and hysterectomy complicated byadhesions. She is also complaining of increased frequency with nocturia, polyuria but denies hematuria, pyuria. Denies any chest pain, cough, shortness of breath. COVID was done which was negative During my evaluation patient looks comfortable, afebrile, heart rate in 70s and blood pressure withsystolic in 130s and diastolic in 70s on a Cardene drip, 2 L of oxygen saturating at 98% with no significant labs. 2 sets of troponin were negative OBJECTIVE Vital Signs: BP (!) 148/60 Pulse 66 Temp 99.1 F (37.3 C) (Oral) Resp 21 Ht 5' 4 (1.626 m) Wt 154 lb 15.7 oz (70.3 kg) SpO2 94% BMI 26.60 kg/m Temp (24hrs), Av.2 F (37.3 C), Min:99.1 F (37.3 C), Max:99.2 F (37.3 C) In: 560 Out: 1050 [Urine:1050] Physical Exam: Constitutional: This is a well developed, well nourished, 25-29.9 - Overweight 74 y.o. year old female who is alert, oriented, cooperative and in no apparent distress. Respiratory: Breath sounds bilaterally were clear to auscultation Cardiovascular: Regular without murmur Abdomen: Soft and Nontender Musculoskeletal: Back pain Extremities: No lower extremity edema Neurological/Psychiatric: The patient's general behavior, level of consciousness, thought content and emotional status is normal. Medications: Scheduled Medications: [START ON 10/11/2019] spironolactone 100 mg Oral Daily lisinopril 20 mg Oral Daily cloNIDine 0.1 mg Oral TID sodium chloride flush 10 mL Intravenous 2 times per day enoxaparin 40 mg Subcutaneous Daily aspirin 81 mg Oral Daily ezetimibe 10 mg Oral Nightly ipratropium-albuterol 1 ampule Inhalation Q4H While awake insulin lispro 0-6 Units Subcutaneous TID insulin lispro 0-3 Units Subcutaneous Nightly metoprolol tartrate 100 mg Oral BID Continuous Infusions: [Held by provider] niCARdipine 2.5 mg/hr (10/10/19 1050) dextrose lactated ringers 75 mL/hr at 10/10/19 0839 PRN Medicationslabetalol, 10 mg, Q4H PRN hydrALAZINE, 10 mg, Q6H PRN sodium chloride flush, 10 mL, PRN acetaminophen, 650 mg, Q6H PRN Or acetaminophen, 650 mg, Q6H PRN polyethylene glycol, 17 g, Daily PRN potassium chloride, 40 mEq, PRN Or potassium alternative oral replacement, 40 mEq, PRN Or potassium chloride, 10 mEq, PRN potassium chloride, 10 mEq, PRN ondansetron, 4 mg, Q8H PRN Or ondansetron, 4 mg, Q6H PRN glucose, 15 g, PRN dextrose, 12.5 g, PRN glucagon (rDNA), 1 mg, PRN dextrose, 100 mL/hr, PRN ketorolac, 15 mg, Q6H PRN Diagnostic Labs: CBC: Recent Labs 10/09/198 10/10/19 0627 WBC 7.7 7.4 RBC 4.78 4.53 HGB 14.2 13.5 HCT 44.6 42.7 MCV 93.3 94.3 RDW 14.2 14.5* PLT 202 170 BMP: Recent Labs 10/09/1944710/10/19626 NA 141 132* K 3.9 3.5* CL 99 97* CO2 24 25 BUN 17 14 CREATININE 0.63 0.50 FASTING LIPID PANEL: Lab Results Component Value Date HDL 50 10/09/2019 LIVER PROFILE: Recent Labs 10/09/19447 AST 11 ALT 15 BILITOT 0.39 ALKPHOS 90 Imaging: Xr Abdomen (kub) (single Ap View) Result Date: 10/09/2019 No evidence of bowel obstruction. Ct Chest Pulmonary Embolism W Contrast Result Date: 10/09/2019 No central or segmental pulmonary embolus. No acute pulmonary process. Emphysema. Us Abdomen Limited Specify Organ? Liver, Gallbladder, Pancreas Result Date: 10/09/2019 Unremarkable right upper quadrant ultrasound. ASSESSMENT & PLAN ASSESSMENT / PLAN: This is a 74 y.o. female who presented with lower back pain (midline) and found to have hypertensive emergency and infrarenal AAA of 3.5 cm. Patient admitted to inpatient status to control blood pressure and vascular recommendations Headaches Cardene Drip discontinued Possible source of headaches Fioricet started Will continue to monitor Lower back pain from possible infrarenal abdominal aortic aneurysm Pain management with NSAIDs and Tylenol No intervention as per vascular surgery Follow-up with abdominal ultrasound after 6 months with PCP Strict blood pressure control less than 130/80 long-term Continue Zetia for hyperlipidemia Follow-up lipid profile Will start patient on aspirin 81 mg daily for primary prevention of ASCVD Hypertensive emergency Aldactone 50 mg Will resume lisiinopril 20 mg, metoprolol 50 mg twice daily Patient will consider restarting Norvasc 10 mg daily; currently refusing Stable COPD On 2 L of nasal cannula PRN DuoNeb DVT ppx: Lovenox PT/OT/SW: On Board Discharge Planning: Ongoing Dwayne Hanson MD Internal Medicine Resident, PGY-1 [facility]; [place], [place] 10/10/2019, 12:00 PM * Duglas Rodrigues MD - 10/10/2019 11:22 AM EDT Attending Physician Statement I have discussed the care of Zachary Maynard and I have examined the patient myselft and taken ros and hpi , including pertinent history and exam findings, with the resident. I have reviewed the potter elements of all parts of the encounter with the resident. I agree with the assessment, plan and orders as documented by the resident. Accelerated hypertension nicardipine drip Headaches due to above also may be side effect of nicardipine Patient has refused Norvasc and ERIK inhibitor's encourage for compliance so that we can taper off the nicardipine increase Aldactone to 50 Electronically signed by Duglas Rodrigues MD * Carlene Potter RN - 10/10/2019 10:22 AM EDT Im resident at bedside and notified of pt. BURDEN. Informed him that Toradol was administered and BURDEN not improving. Will awaitl orders. * Carlene Potter RN - 10/10/2019 10:21 AM EDT IM team perfect served pt. is still complaining of BURDEN. is there anything you can give her?? She already received her Toradol and Tylenol. it is not working will await orders. * Carlos Mai RN - 10/10/2019 4:50 AM EDT Paged internal med regarding patients continued hypertension despite given scheduled medications. Ordered was 10mg labetalol and hydralazine 10mg. Patient's blood pressure has continually been 160-180s/70s and her blood pressure has been unresponsive to both labetalol and hydralazine. Order was plac ed to restart her on the cardene gtt. Will continue to monitor. * Rey Bazan RN - 10/09/2019 12:25 PM EDT Patient admitted to room 2015 from ED. Telemetry applied, vitals recorded, and patient oriented to room. at bedside with patient. Will continue to monitor. * Jesus Glez MD - 10/09/2019 7:36 AM EDT Plan for Med - 3 team to admit as primary. * Megha Prieto DO - 10/09/2019 4:07 AM EDT [facility] ED Emergency Department Emergency Medicine Resident Sign-out Care of Zachary Maynard was assumed from Dr. Melton and is being seen for Abdominal Pain and Back Pain . The patient's initial evaluation and plan have been discussed with the prior provider who initially evaluated the patient. EMERGENCY DEPARTMENT COURSE / MEDICAL DECISION MAKING: MEDICATIONS GIVEN: ED Medication Orders (From admission, onward) Start Ordered Status Ordering Provider 10/09/19 0552 10/09/19 0552 iohexol (OMNIPAQUE 350) solution 75 mL IMG ONCE PRN Last APR action: Given - by ASMMIE VERGARA on 10/09/19 at 0643 JOEL MELTON 10/09/19 0530 10/09/19 0519 niCARdipine (CARDENE) 25 mg in dextrose 5 % 250 mL infusion CONTINUOUS Last APR action: Stopped - by ANNIKA LÓPEZ on 10/09/19 at 0535 JOEL MELTON 10/09/19 0530 10/09/19 0520 meclizine (ANTIVERT) tablet 25 mg ONCE Last APR action: Given - by ANNIKA LÓPEZ on 10/09/19 at 0527 JOEL MELTON 10/09/19 0515 10/09/19 0502 haloperidol lactate (HALDOL) injection 5 mg ONCE Last APR action: Given - by ANNIKA LÓPEZ on 10/09/19 at 0504 JOEL MELTON 10/09/19 0445 10/09/19 0435 fentaNYL (SUBLIMAZE) injection 50 mcg ONCE Last APR action: Given - by ANNIKA LÓPEZ on 10/09/19 at 0447 JOEL MELTON 10/09/19 0430 10/09/19 0419 ondansetron (ZOFRAN) injection 4 mg ONCE Last APR action: Given - by ANNIKA LÓPEZ on 10/09/19 at 0421 JOEL MELTON LABS / RADIOLOGY: Labs Reviewed CBC WITH AUTO DIFFERENTIAL - Abnormal; Notable for the following components: Result Value Seg Neutrophils 79 (*) Lymphocytes 13 (*) Eosinophils % 0 (*) Immature Granulocytes 1 (*) Absolute Lymph # 0.97 (*) All other components within normal limits COMPREHENSIVE METABOLIC PANEL - Abnormal; Notable for the following components: Glucose 208 (*) Anion Gap 18 (*) All other components within normal limits LIPID, FASTING - Abnormal; Notable for the following components: Cholesterol, Fasting 229 (*) LDL Cholesterol 143 (*) Triglyceride, Fasting 182 (*) VLDL NOT REPORTED (*) All other components within normal limits LIPASE TROPONIN COVID-19 TROPONIN URINALYSIS WITH MICROSCOPIC URINE RT REFLEX TO CULTURE No results found. RECENT VITALS: Temp: 98.9 F (37.2 C), Pulse: 77, Resp: 16, BP: (!) 161/92, SpO2: 94 % This patient is a 74 y.o. Female with transfer from [place]. Low back pain since . 3.4 infrarenal AAA with no active dissection. Vascular surgery consulted, non emergent problem. RecommendedSBP <140. Admit to medicine. Persistent dizziness, no red flags on exam. Hypoxia, hx COPD but doesn't wear O2 at home ED Course as of Oct 08 1121 Sat Oct 09, 2019 0727 Troponin: Troponin, High Sensitivity 10 Troponin T NOT REPORTED Troponin Interp NOT REPORTED [AM] 0727 CT CHEST PULMONARY EMBOLISM W CONTRAST [AM] 0752 Medicine bedside [AM] ED Course User Index [AM] Megha Prieto DO OUTSTANDING TASKS / RECOMMENDATIONS: 1. CT Chest r/o PE 2. Repeat troponin 3. UA 4. Admit FINAL IMPRESSION: 1. Abdominal aortic aneurysm (AAA) without rupture (HCC) 2. Acute low back pain, unspecified back pain laterality, unspecified whether sciatica present 3. Vertigo 4. Nausea and vomiting, intractability of vomiting not specified, unspecified vomiting type 5. Hypertensive urgency DISPOSITION: DISPOSITION: [] Discharge [] Transfer - [x] Admission - Internal Medicine [] Against Medical Advice [] Eloped FOLLOW-UP: Adina Bunch MD [id number] [id number] DISCHARGE MEDICATIONS: New Prescriptions No medications on file Megha Prieto DO Emergency Medicine Resident Physician, PGY-3 10/09/19 11:21 AM documented in this encounter Assessments Diagnosis Acute low back pain, unspecified back pain laterality, unspecified whether sciatica present Vertigo Dizziness and giddiness Nausea and vomiting, intractability of vomiting not specified, unspecified vomiting type Hypertensive urgency Unspecified essential hypertension Abdominal aortic aneurysm (AAA) without rupture (HCC) Aneurysm of infrarenal abdominal aorta (HCC) Acute intractable headache Right renal artery stenosis (HCC) Atherosclerosis of renal artery Secondary hypertension Other secondary hypertension, unspecified Hypokalemia Hypopotassemia Moderate malnutrition (HCC) Malnutrition of moderate degree Chief Complaint and Reason for Visit Chief Complaint CONSULT ARTEMIO OCHOA Reason for Visit Trigger finger, righ t middle finger Trigger finger, right ring finger Chief Complaint M79.641 CONSULT ARTEMIO OCHOA Trigger Finger Reason for Visit Trigger finger, righ t middle finger Trigger finger, right ring finger Additional Source Comments INFORMATION SOURCE (unrecogn ized section and content) DATE CREATED AUTHOR 08/13/[address] [facility] DATE CREATED AUTHOR AUTHOR'S ORGANIZ ATION 11/03/[address] [facility] DATE CREATED AUTHOR AUTHOR'S ORGANIZ ATION 11/29/2020 [facility] DATE CREATED AUTHOR AUTHOR'S ORGANIZ ATION 06/18/2022 [facility] DATE CREATED AUTHOR AUTHOR'S ORGANIZ ATION 04/25/2023 [facility] DATE CREATED AUTHOR AUTHOR'S ORGANIZ ATION 05/09/2023 [facility] Reason for Visit (unrecogniz ed section and content) Reason Comments Abdominal Pain Back Pain Status Reason Specialty Diagnoses / Procedures Referre d By Contact Referred To Contact Diagnoses AAA (abdominal aortic aneurysm) (HCC) Duglas Rodrigues MD [address] [place] [address] [facility] Care Teams (unrecognized sec tion and content) Team Status: Active Member Role Status Kaylynn Bunch MD Primary Care Provider Active Team Status: Inactive Member Role Status Kaylynn Bunch MD Primary Care Provider Active Start: April 08, 2023 End: April 08, 2023 Anju Lees MD Attending Provider Active Start: April 08, 2023 End: April 08, 2023 Team Status: Active Member Role Status Kaylynn Bunch MD Primary Care Provider Active Start: April 08, 2023 Anju Lees MD Attending Provider Active Start: April 08, 2023 Team Status: Inactive Member Role Status Kaylynn Bunch MD Primary Care Provider Active Start: April 17, 2023 End: April 17, 2023 Anju Lees MD Attending Provider Active Start: April 17, 2023 End: April 17, 2023 Goals (unrecognized section and content) Goals may be documented in a n alternate sectionGoals may be documented in an alternate sectionGoals may be documented in an alternate section FOR RECORDS PERTAINING TO PATIENTS WHO ARE OR HAVE BEEN ENROLLED IN A CHEMICAL DEPENDENCY/SUBSTANCEABUSE PROGRAM, SOME INFORMATION MAY BE OMITTED. This clinical summary was aggregated from multiple sources. Caution should be exercised in using it in the provision of clinical care. This summary normalizes information from multiple sources, and as a consequence, information in this document may materially change the coding, format and clinical context of patient data. In addition, data may be omitted in some cases. CLINICAL DECISIONS SHOULD BE BASED ON THE PRIMARY CLINICAL RECORDS. [employer] provides no warranty or guarantee of the accuracy or completeness of information in this document.
[2023-11-23] MEDS: KETOROLAC TROMETHAMINE 30 MG/ML VIAL 15 MG IVP (15:48)
[2023-11-23] MEDS: BENZONATATE 100 MG CAPSULE 200 MG PO (15:48)
[2023-11-23] MEDS: ACETAMINOPHEN 500 MG TABLET 1000 MG PO (15:48)
[2023-11-23] MEDS: 0.9 % SODIUM CHLORIDE 1,000 ML 999 ML IV (15:49)
[2023-11-23 16:18] LABS: Basophils Absolute Auto 0.1 10^3/uL (0.0-0.1); Basophils Percent Auto 0.6 % (0.2-2.0); Eosinophils Absolute Auto 0.2 10^3/uL (0.0-0.7); Eosinophils Percent Auto 2.6 % (0.9-7.0); Hematocrit 30.2 % (36.0-48.0); Hemoglobin 9.7 g/dL (12.0-16.0); Immature Granulocytes Abs Auto 0.09 10^3/uL (0.00-0.03); Immature Granulocytes Pct Auto 1.1 % (0.0-0.5); Lymphocytes Percent Auto 23.4 % (20.5-60.0); Mean Corpuscular HGB Conc 32.1 g/dL (29.9-35.2); Mean Corpuscular Hemoglobin 28.4 pg (26.7-34.0); Mean Corpuscular Volume 88.6 fL (81.0-99.0); Mean Platelet Volume 10.2 fL (9.5-13.5); Monocytes Absolute Auto 0.8 10^3/uL (0.3-0.8); Monocytes Percent Auto 9.2 % (1.7-12.0); Neutrophils Absolute Auto 5.3 10^3/uL (1.4-6.5); Neutrophils Percent Auto 63.1 % (43.0-75.0); Platelet Count 239 10^3/uL (150-450); Red Blood Count 3.41 10^6/uL (4.20-5.40); Red Cell Distribution Width 15.8 % (11.0-15.0); White Blood Count 8.5 10^3/uL (4.0-11.0)
[2023-11-23 16:42] LABS: Alanine Aminotransferase 16 U/L (14-59); Albumin Globulin Ratio 0.7; Albumin Level 2.4 g/dL (3.4-5.0); Alkaline Phosphatase 82 U/L (46-116); Anion Gap 5.5; Aspartate Amino Transferase 11 U/L (15-37); BUN Creatinine Ratio 17.7; Bilirubin Total 0.6 mg/dL (0.2-1.0); Calcium 8.9 mg/dL (8.5-10.1); Carbon Dioxide 33.4 mmol/L (21.0-32.0); Chloride 100 mmol/L (98-107); Estimated GFR (African America 43 (>=60); Estimated GFR (Non-African Ame 36 (>=60); Globulin 3.4 g/dL; Glucose 105 mg/dL (74-106); Sodium 136 mmol/L (136-145); Total Protein 5.8 g/dL (6.4-8.2); Troponin I High Sensitivity 8.5 pg/mL (4.0-51.3)
[2023-11-23 16:46] LABS: Potassium 2.9 mmol/L (3.5-5.1)
[2023-11-23] MEDS: POTASSIUM BICARBONATE/CIT 25 MEQ TABLET EFF 50 MEQ PO (16:59)
[2023-11-23] MEDS: ONDANSETRON PF 4 MG/2 ML VIAL IV (17:10)
[2023-11-23 17:33] LABS: Bilirubin Urine NEGATIVE (NEGATIVE); Blood Urine NEGATIVE (NEGATIVE); Clarity Urine CLEAR (CLEAR); Color Urine LT. YELLOW (YELLOW); Glucose Urine UA NEGATIVE (NEGATIVE); Ketones Urine NEGATIVE (NEGATIVE); Leukocyte Esterase Urine NEGATIVE (NEGATIVE); Nitrite Urine NEGATIVE (NEGATIVE); Protein Urine NEGATIVE (NEG/TRACE); Specific Gravity Urine 1.015 (1.005-1.025); Urobilinogen Urine 0.2 EU/dL (0.2-1.0)
[2023-11-23 17:38] LABS: Urine Microscopic Indicated NO
== END 2023-11-23 18:00 | disposition home or self-care (01) ==
PROVIDERS: Personal Emergency Response Attendant; Emergency Provider Emergency Medicine; PCP Family Medicine
DX: J11.1 Influenza due to unidentified influenza virus with other respiratory manifestations (principal); E86.0 Dehydration; R06.02 Shortness of breath
CPT/HCPCS: 36415; 71046; 80048; 80053; 81003; 83605; 83880; 84484; 85025; 93005; 96361; 96374; 96375; 99285; J1885; J2405

== ENCOUNTER 2023-11-26 09:54 | Outpatient (OUT) | payer MEDICARE, SELFPAY ==
--- NOTE | 2023-11-26 10:00 | CA_ITS ---
Patient Name: ZACHARY MAYNARD MR#: [id number] : 1945 Exam Date: 11/26/2023 Ordering Doctor: DR Velasquez Langley . ECHOCARDIOGRAM REPORT PROCEDURE: CA ECHO DOPPLER COMPLETE INDICATIONS: Sinus tachycardia, COPD COMPARISON: None. DESCRIPTION: COMPLETE ECHOCARDIOGRAM Real-time transthoracic echocardiography with 2D, M-mode, spectral and color flow Doppler performed. QUALITY: Technical quality was good. Patient appears to be rapid atrial fibrillation. Ordering physician notified of finding, patient sent to Emergency Department for further care. LEFT VENTRICLE: Normal chamber size. Normal left ventricular wall thickness. LV EF: Global left ventricular systolic function is hyperdynamic; visually estimated ejection fraction is 70 to 75%. No significant wall motion abnormalities. DIASTOLIC: Not adequately assessed due to heart rhythm. ATRIAL SEPTUM: Visually appears intact. Lipomatous hypertrophy of the intra-atrial septum. LEFT ATRIUM: Normal chamber size. RIGHT ATRIUM: Normal chamber size. RIGHT VENTRICLE: Normal chamber size. Normal systolic function. TRICUSPID VALVE: Normal mobility and thickness. No stenosis with trivial regurgitation. Unable to assess right-sided pressures due to lack of measurable tricuspid regurgitation. MITRAL VALVE: Normal mobility and thickness. No evidence of mitral valve stenosis. There is no mitral annular calcification. Mild mitral regurgitation. AORTIC VALVE: Normal trileaflet appearance. Mildly calcified aortic valve. Normal leaflet mobility. No evidence of aortic valve stenosis. No aortic regurgitation. AORTIC ROOT: Normal diameter and appearance. PULMONIC VALVE: Normal thickness and mobility. No stenosis. No regurgitation. PERICARDIUM: Anterior free space; trivial effusion versus prominent fat pad. IVC: Collapses with inspirations. IVC is dilated (2.3 cm) CONCLUSION: 1. Global left ventricular systolic function is hyperdynamic; visually estimated ejection fraction is 70 to 75% 2. Normal right ventricular size and systolic function 3. Mild mitral regurgitation 4. Anterior free space; trivial effusion versus fat pad Adult Echocardiography Procedure Report Left Ventricle LVEDD (3.7 - 5.6 cm): 3.95 cm LVESD (2.2 - 4.0 cm): 2.68 cm LVIVS thickness (0.6 - 1.2 cm): 0.98 cm LVPW thickness (0.5 - 1.0 cm): 0.79 cm LVOT Max Gradient: 2.38 mm[Hg] LVOT Area (cm2): 0.77 m/s Peak Velocity (LVOT): 0.77 m/s LVOT Diameter 2.01 cm Left Atrium LA Volume Index (2D A2C): 32.51 ml/m2 Left Atrium Systolic Dimension: 3.81 cm Mitral Valve Right Ventricle Aorta AO Root Diam: 2.75 cm Ascending Ao Diam: 2.33 cm Aortic Valve AoV Area (Peak Master): 1.89 cm2, 1.89 cm2 Peak Velocity(Antegrade Flow): 1.29 m/s Peak Gradient(Antegrade Flow): 6.70 mm[Hg] Tricuspid Valve Pulmonic Valve Peak Velocity: 0.96 m/s Peak Gradient: 4.09 mm[Hg], 3.27 mm[Hg] Right Atrium Dictated by: Uziel Khan M.D. on 11/26/2023 at 12:04 Approved by: Uziel Khan M.D. on 11/26/2023 at 12:07
== END 2023-11-26 09:55 | disposition home or self-care (01) ==
LOC: CARD 09:54
PROVIDERS: PCP Family Medicine; Visit Provider Family Medicine
DX: R00.0 Tachycardia, unspecified (principal)
CPT/HCPCS: 93306

== ENCOUNTER 2023-11-26 10:45 | Inpatient (IN) | payer MEDICARE, SELFPAY ==
[2023-11-26] VITALS (11 sets, daily range): BP systolic 122–170; BP diastolic 74–90; PULSE 67–137; TEMP 36.7–37; O2SAT 92–98; BMI 28.3; BMI 27.8
--- NOTE | 2023-11-26 11:00 | XR_ITS ---
The [address] [address] Patient Name: ZACHARY MAYNARD MRN: [id number] date: 1945 Sex: F Assigned Patient Location: ER Current Patient Location: ER Accession/Order Number: [id number] Exam Date: 11/26/2023 11:35 Report Date: 11/26/2023 11:51 At the request of: MARK ARMANDO Procedure: XR chest 1V EXAMINATION: XR chest 1V HISTORY: palpitations/SOB COMPARISON: 11/18/2023 TECHNIQUE: AP portable FINDINGS: LUNGS: No significant pulmonary parenchymal abnormalities. VASCULATURE: No increased pulmonary vasculature. PLEURA: No pneumothorax, effusion, or pleural thickening. CARDIAC: No cardiomegaly or cardiac silhouette abnormality. MEDIASTINUM: No visible mass or adenopathy. Aortic atherosclerosis BONES: No fracture or visible bone lesion. OTHER: Negative. XR/XR chest 1V IMPRESSION: No acute cardiopulmonary process Electronically authenticated by: VALERIO HOOKER Date: 11/26/2023 11:51
--- NOTE | 2023-11-26 11:00 | ECG_ITS ---
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
--- NOTE | 2023-11-26 11:02 | ED.ARRPALP1 ---
HPI - Arrhythmia/Palpitations General Chief Complaint: Arrhythmia/Palpitations Stated Complaint: AFIB Time Seen by Provider: 11/26/23 10:49 Source: patient Mode of arrival: Wheelchair History of Present Illness HPI narrative: Patient presents to ED complaining of shortness of breath difficulty breathing and heart palpitations. She was placed on the monitor and is found to be in A-fib with an elevated heart rate in the 130s to 140s. She said over the past few months she has been feeling this way on and off but anytime she comes into the hospital her heart rate is normal. She said she can feel it racing sometimes but nobody is really ever been able to catch it. She denies any chest pain just feels short of breath and more winded with exertion. She has been feeling a little bit lightheaded and dizzy as well. She denies any fall. No abdominal pain. She is anxious. currently resting in bed. A and O x 3. Blood pressure is stable. Related Data Home Medications ?Medication ?Instructions ?Recorded ?Confirmed albuterol sulfate 90 mcg/actuation 2 puff inhalation Q4H PRN 11/23/23 11/26/23 aerosol inhaler shortness of breath or wheezing ezetimibe 10 mg tablet 10 mg PO DAILY 11/23/23 11/26/23 hydrochlorothiazide 25 mg tablet 50 mg PO DAILY 11/23/23 11/26/23 ropinirole 0.5 mg tablet 0.5 mg PO DAILY 11/23/23 11/26/23 tiotropium bromide 18 mcg capsule 1 cap inhalation DAILY 11/23/23 11/26/23 with inhalation device memantine 28 mg capsule 28 mg PO Q24H 11/26/23 11/26/23 sprinkle,extended release 24hr metformin 500 mg tablet,extended 500 mg PO BID 11/26/23 11/26/23 release 24 hr Allergies Allergy/AdvReac Type Severity Reaction Status Date / Time meperidine [From Demerol] AdvReac Severe Anaphylaxis Verified 11/23/23 15:22 Review of Systems ROS Status of ROS 10 or more systems reviewed and unremarkable except as noted in history and below [facility] Medical History (Updated 11/26/23 @ 14:15 by Tatiana Stewart DO) COPD (chronic obstructive pulmonary disease) ?J44.9 - Chronic obstructive pulmonary disease, unspecified (ICD-10) History of uterine cancer ?Z85.42 - Personal history of malignant neoplasm of other parts of uterus (ICD-10) Edema ?R60.9 - Edema, unspecified (ICD-10) Diabetes ?E11.9 - Type 2 diabetes mellitus without complications (ICD-10) HTN (hypertension) ?I10 - Essential (primary) hypertension (ICD-10) Surgical History (Updated 11/26/23 @ 14:11 by Darlyn Sterling RN) H/O: hysterectomy ?Z90.710 - Acquired absence of both cervix and uterus (ICD-10) Family History (Updated 11/26/23 @ 14:12 by Darlyn Sterling, RN) Father Family history of cancer Family history of COPD (chronic obstructive pulmonary disease) Mother Family history of diabetes mellitus Family history of hypertension Family history of myocardial infarction Family history of CHF (congestive heart failure) Social History (Updated 11/26/23 @ 14:13 by Darlyn Sterling RN) Within the past year, how often did you have a drink containing alcohol: never Score interpretation: A score less than 3 is consistent with normal alcohol consumption. Smoking status: Former smoker Non-prescribed substance use: denies use Little interest or pleasure in doing things: not at all Feeling down, depressed, or hopeless: not at all Exam Narrative Exam Narrative: Time Seen: [] Vital Signs: [Per nurse's notes.] General: [Alert] anxious Skin: [Warm, dry, no rash.] Head: [Normocephalic, atraumatic.] Neck: [Supple, trachea midline.] Eye: [Pupils are equal, round and reactive to light, extraocular movements are intact, normal conjunctiva.] Ears, nose, mouth and throat: oral mucosa moist. Cardiovascular: Irregularly irregular tachycardia Respiratory: Mild crackles bilateral bases, tachypnea Chest wall: [No tenderness, no deformity.] Gastrointestinal: [Soft, nontender, non distended, normal bowel sounds.] MSK: 5 out of 5 muscle strength x 4 extremities no calf pain or edema Lymphatics: [No lymphadenopathy.] Psychiatric: [Cooperative, appropriate mood & affect.] Neurological: [Alert and oriented to person, place, time, and situation, no focal neurological deficit observed.] Constitutional Vital Signs, click to edit/add: Last Vital Signs Temp 98.0 F 11/26/23 10:50 Pulse 77 11/26/23 12:07 Resp 28 H 11/26/23 10:50 BP 122/80 11/26/23 12:07 Pulse Ox 98 11/26/23 10:50 O2 Del Method Room Air 11/26/23 10:50 Course Vital Signs Vital signs: Vital Signs Temperature 98.0 F 11/26/23 10:50 Pulse Rate 137 H 11/26/23 10:50 Respiratory Rate 28 H 11/26/23 10:50 Blood Pressure 136/90 11/26/23 10:50 Pulse Oximetry 98 11/26/23 10:50 Oxygen Delivery Method Room Air 11/26/23 10:50 Temperature 98.0 F 11/26/23 10:50 Pulse Rate 77 11/26/23 12:07 Respiratory Rate 28 H 11/26/23 10:50 Blood Pressure 122/80 11/26/23 12:07 Pulse Oximetry 98 11/26/23 10:50 Oxygen Delivery Method Room Air 11/26/23 10:50 MDM - Arrhythmia/Palpitations MDM Narrative Medical decision making narrative: Patient was found to be in new onset A-fib. I called and spoke to Dr. Langley who knows the patient well. He will start her on anticoagulation. Patient was rate controlled with 1 dose of Cardizem. Her heart rate was down into the 70s. She was still slightly irregular but sometimes in sinus rhythm. Patient does feel better with her heart rate improvement. She will be admitted for further care and management of her new onset A-fib. Patient and family are comfortable with care plan for admission Differential Diagnosis Differential diagnosis: Likely palpitations, anxiety, sinus tachycardia and artial fibrillation Medical Records Attestation: I reviewed the patient's medical records. Lab Data Attestation: I reviewed the patient's lab results. Labs: Lab Results 11/26/23 11/26/23 Range/Units 11:06 12:03 WBC 8.8 (4.0-11.0) 10^3/uL RBC 4.10 L (4.20-5.40) 10^6/uL Hgb 11.4 L (12.0-16.0) g/dL Hct 36.3 (36.0-48.0) % MCV 88.5 (81.0-99.0) fL MCH 27.8 (26.7-34.0) pg MCHC 31.4 (29.9-35.2) g/dL RDW 15.6 H (11.0-15.0) % Plt Count 281 (150-450) 10^3/uL MPV 9.8 (9.5-13.5) fL Neut % (Auto) 67.3 (43.0-75.0) % Lymph % (Auto) 21.4 (20.5-60.0) % [place] % (Auto) 7.6 (1.7-12.0) % Eos % (Auto) 2.0 (0.9-7.0) % Baso % (Auto) 0.6 (0.2-2.0) % Neut # (Auto) 5.9 (1.4-6.5) 10^3/uL Lymph # (Auto) 1.9 (1.2-3.8) 10^3/uL [place] # (Auto) 0.7 (0.3-0.8) 10^3/uL Eos # (Auto) 0.2 (0.0-0.7) 10^3/uL Baso # (Auto) 0.1 (0.0-0.1) 10^3/uL Abs Immat Gran (auto) 0.10 H (0.00-0.03) 10^3/uL Imm/Tot Granulo (auto) 1.1 H (0.0-0.5) % PT 10.6 (9.0-11.6) sec INR 1.00 Sodium 137 (136-145) mmol/L Potassium 3.6 (3.5-5.1) mmol/L Chloride 102 (98-107) mmol/L Carbon Dioxide 25.8 (21.0-32.0) mmol/L Anion Gap 12.8 BUN 14.0 (7.0-18.0) mg/dL Creatinine 1.23 H (0.55-1.02) mg/dL Est GFR ( Amer) 51 L (>=60 mL/min/1.73m^2) Est GFR (Non-Af Amer) 42 L (>=60 mL/min/1.73m^2) BUN/Creatinine Ratio 11.4 Glucose 110 H (74-106) mg/dL Calcium 9.8 (8.5-10.1) mg/dL Magnesium 1.9 (1.8-2.4) mg/dL Total Bilirubin 0.5 (0.2-1.0) mg/dL AST 14 L (15-37) U/L ALT 13 L (14-59) U/L Alkaline Phosphatase 89 (46-116) U/L Troponin I High Sens 27.0 (4.0-51.3) pg/mL Total Protein 6.1 L (6.4-8.2) g/dL Albumin 2.7 L (3.4-5.0) g/dL Globulin 3.4 g/dL Albumin/Globulin Ratio 0.8 Urine Color Lt. yellow (YELLOW) Urine Clarity Clear (CLEAR) Urine pH 7.0 (5.0-9.0) Ur Specific [place] <=1.005 A (1.005-1.025) Urine Protein Negative (NEG/TRACE) mg/dL Urine Glucose (UA) Negative (NEGATIVE) mg/dL Urine Ketones Negative (NEGATIVE) mg/dL Urine Occult Blood Negative (NEGATIVE) Urine Nitrite Negative (NEGATIVE) Urine Bilirubin Negative (NEGATIVE) Urine Urobilinogen 0.2 (0.2-1.0) EU/dL Ur Leukocyte Esterase Negative (NEGATIVE) Imaging Data Chest x-ray: Radiologist's impression: ITS Impressions Chest X-Ray 11/26/23 11:00 IMPRESSION: No acute cardiopulmonary process Electronically authenticated by: VALERIO HOOKER Date: 11/26/2023 11:51 ECG Data Attestation: I personally reviewed and interpreted this ECG as follows: Interpretation: EKG INTERPRETATION Time: [] 1055 Rate: [] 132 Rhythm: _ [] A-fib RVR ST segments: _ [] T waves: _ [] No acute ST elevation or depression Ectopy: _ [] P wave/TX interval: _ [] QRS interval: _ [] QT interval: _ [] Comparison: _ [] Comparison EKG date: [] Performed by: [self] Discharge Plan Discharge Chief Complaint: Arrhythmia/Palpitations Clinical Impression: Atrial fibrillation Patient Disposition: Admitted As Inpatient Time of Disposition Decision: 14:13 Condition: Fair Discharge Date/Time: 11/26/23 14:13
[2023-11-26] MEDS: 0.9 % SODIUM CHLORIDE 500 ML IV (11:14)
[2023-11-26] MEDS: DILTIAZEM HCL 25 MG/5 ML VIAL 20 MG IV (11:15)
[2023-11-26 11:56] LABS: Alanine Aminotransferase 13 U/L (14-59); Albumin Globulin Ratio 0.8; Albumin Level 2.7 g/dL (3.4-5.0); Alkaline Phosphatase 89 U/L (46-116); Aspartate Amino Transferase 14 U/L (15-37); BUN Creatinine Ratio 11.4; Bilirubin Total 0.5 mg/dL (0.2-1.0); Calcium 9.8 mg/dL (8.5-10.1); Chloride 102 mmol/L (98-107); Estimated GFR (African America 51 (>=60 mL/min/1.73m^2); Estimated GFR (Non-African Ame 42 (>=60 mL/min/1.73m^2); Globulin 3.4 g/dL; Glucose 110 mg/dL (74-106); Magnesium 1.9 mg/dL (1.8-2.4); Potassium 3.6 mmol/L (3.5-5.1); Sodium 137 mmol/L (136-145); Total Protein 6.1 g/dL (6.4-8.2)
[2023-11-26 12:10] LABS: Basophils Absolute Auto 0.1 10^3/uL (0.0-0.1); Basophils Percent Auto 0.6 % (0.2-2.0); Eosinophils Absolute Auto 0.2 10^3/uL (0.0-0.7); Hematocrit 36.3 % (36.0-48.0); Hemoglobin 11.4 g/dL (12.0-16.0); Immature Granulocytes Pct Auto 1.1 % (0.0-0.5); Lymphocytes Absolute Auto 1.9 10^3/uL (1.2-3.8); Lymphocytes Percent Auto 21.4 % (20.5-60.0); Mean Corpuscular HGB Conc 31.4 g/dL (29.9-35.2); Mean Corpuscular Hemoglobin 27.8 pg (26.7-34.0); Mean Corpuscular Volume 88.5 fL (81.0-99.0); Mean Platelet Volume 9.8 fL (9.5-13.5); Monocytes Absolute Auto 0.7 10^3/uL (0.3-0.8); Monocytes Percent Auto 7.6 % (1.7-12.0); Neutrophils Absolute Auto 5.9 10^3/uL (1.4-6.5); Neutrophils Percent Auto 67.3 % (43.0-75.0); Platelet Count 281 10^3/uL (150-450); Red Cell Distribution Width 15.6 % (11.0-15.0); White Blood Count 8.8 10^3/uL (4.0-11.0)
[2023-11-26 12:15] LABS: Anion Gap 12.8; Carbon Dioxide 25.8 mmol/L (21.0-32.0)
[2023-11-26 12:18] LABS: Bilirubin Urine NEGATIVE (NEGATIVE); Blood Urine NEGATIVE (NEGATIVE); Clarity Urine CLEAR (CLEAR); Color Urine LT. YELLOW (YELLOW); Glucose Urine UA NEGATIVE (NEGATIVE); Ketones Urine NEGATIVE (NEGATIVE); Leukocyte Esterase Urine NEGATIVE (NEGATIVE); Nitrite Urine NEGATIVE (NEGATIVE); Protein Urine NEGATIVE (NEG/TRACE); Specific Gravity Urine <=1.005 (1.005-1.025); Urobilinogen Urine 0.2 EU/dL (0.2-1.0)
[2023-11-26 12:21] LABS: Urine Microscopic Indicated NO
[2023-11-26 12:27] LABS: Prothrombin Time 10.6 sec (9.0-11.6)
--- OUTSIDE RECORDS SUMMARY | 2023-11-26 14:20 | XMS_ITS | CCD ---
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 Name Role Phone ADINA BUNCH Unavailable Unavailable [...] Unavailable HOY ., DR HOLDEN Attending Unavailable MINALY ., DR HOLDEN Primary Care Unavailable MD Adina Bunch Primary Care Provider [phone] MD Anju Lees Attending Provider [phone] CURRY LOVING Attending Unavailable CURRY LOVING Attending [...] reactions to drug 4 Unknown Reaction, Rash [place], [place] (4 sources) Ciprofloxacin Drug Allergy 8 Vomiting [place] (1 source) Hmg-Coa Reductase Inhibitors (Statins) Propensity to adverse reactions to drug 8 [place] (4 sources) Meperidine Drug Allergy 8 Anaphylaxis [place] (4 sources) moxifloxacin Drug Allergy 8 Anaphylaxis [place] (4 sources) Nalbuphine Drug Allergy 8 Unknown Reaction, Itching [place] (4 sources) Promethazine Drug Allergy 8 Unknown Reaction [place] (1 source) Sulfonamides (Antibiotic) Propensity to adverse reactions to drug 8 [place] (2 sources) black walnut pollen extract Drug Allergy 4 [facility] (2 sources) Ciprofloxacin Drug Allergy 4 [facility] (2 sources) Levamisole Drug Allergy 4 [facility] (2 sources) Meperidine Drug Allergy 4 [facility] (2 sources) moxifloxacin Drug Allergy 4 [facility] (2 sources) Nalbuphine Drug Allergy 4 [facility] (1 source) Sulfonamides (Antibiotic) Drug allergy (disorder) 7 [facility] (4 sources) Sulfacetamide; 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: [sulfacetamide] Drug Allergy 4 Unknown Reaction, Itching [facility] (4 sources) Sulfur; 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: [sulfur] Drug Allergy 4 Unknown Reaction [facility] (4 sources) Mnhdnox-YKP-ZmZ Reductase Inhibitor; 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: [Dcbqgho-UBJ-OaH Reductase Inhibitor] Allergy to substance 4 Unknown Reaction [facility] (1 source) Ciprofloxacin Drug Allergy 4 [facility] (1 source) Meperidine Drug Allergy 4 [facility] (1 source) moxifloxacin Drug Allergy 4 [facility] (1 source) Nalbuphine Drug Allergy 4 [facility] (1 source) Promethazine Drug Allergy 4 [facility] Medications Current Medications Medication Drug [...] Central Nervous System Stimulant, Methylxanthine Start: 10-10-2019 scgmdwbcnx-uqwmbkrhveaag-itb feine (FIORICET, ESGIC) per tablet 1 tablet [id number] 200 actuat albuterol 0.09 mg/actuat metered dose [...] tablet 3 10/16/2019 Active Start: 10-11-2019 lisinopril (DC INIVIL;ZESTRIL) tablet 40 mg Start: 10-10-2019 End: [...] mg extended release oral capsule (3 sources) H-eshsmv-U-aspartate Receptor Antagonist Start: 04-08-2023 take 28 mg [...] disintegrating tablet 4 mg polyethylene glycol 3350 85324 mg powder for oral solution (3 sources) [...] spironolactone (ALDACTONE) t ablet 50 mg Vit C,Y-Uo-Cixqn-Lutein-Zeax an (Preservision Areds-2) 250-90-40-1 mg capsule (1 source) Start: 04-17-2023 Vit C,P-Uw-Xwhre-Lutein-Zeax an (Preservision Areds-2) 250-90-40-1 mg capsule Active [...] 0 04-24-2023 Commemt1 Glu2: Cleaned Meter Normal [facility] Comment on above: Result Comment: PERF ORMED BY: [facility] [address] [place] [address] PATHOLOGIST ADVERTISING STRATEGIST MARKELL WILDE M.D. Performed By: #### G LULS #### Point of Care testing , Glucose [Mass/Vol] 95 mg/dL Normal [facility] Comment on above: Result Comment: [place] Glucose Reference Range is dependent on time and content of last meal. Glucose of more than 200 mg/dL in a nonstressed, ambulatory subject supports the diagnosis of Diabetes Mellitus. Performed By: #### G LULS #### Point of Care testing , Alanine aminotransferase [En zymatic activity/volume] in Serum or PlasmaOrdered By: Anju Lees on 04-17-2023 ALT [Catalytic activity/Vol] 11 U/L 7-52 [facility] Albumin [Mass/volume] in Ser um or Plasma by Bromocresol green (BCG) dye binding methoOrdered By: Anju Lees on 04-17-2023 Albumin BCG dye [Mass/Vol] 3.7 g/dL 3.5-5.7 [facility] Alkaline phosphatase [Enzyma tic activity/volume] in Serum or PlasmaOrdered By: Anju Lees on 04-17-2023 ALP [Catalytic activity/Vol] 110 U/L 34-104 [facility] Aspartate aminotransferase [ Enzymatic activity/volume] in Serum or PlasmaOrdered By: Anju Lees on 04-17-2023 AST [Catalytic activity/Vol] 16 U/L 13-39 [facility] Basophils Auto (Bld) [#/Vol] Ordered By: Anju Lees on 04-17-2023 Basophils (Bld) [#/Vol] 0.1 10*3/uL 0.0-0.2 [facility] Basophils/100 WBC Auto (Bld) Ordered By: Anju Lees on 04-17-2023 Basophils/100 WBC (Bld) 0.6 % . [facility] Bilirubin.total [Mass/volume ] in Serum or PlasmaOrdered By: Anju Lees on 04-17-2023 Bilirubin [Mass/Vol] 0.5 mg/dL 0.3-1.0 [facility] CMP with reflex to A1Con Albumin [Mass/Vol] 3.7 g/dL Normal 3.5-5.7 [facility] Comment on above: Performed By: #### C MP wRFX A1C, CBC #### [facility] [address] Albumin/Globulin [Mass ratio] 1.9 {ratio} Normal [facility] Comment on above: Performed By: #### C MP wRFX A1C, CBC #### [facility] [address] ALP [Catalytic activity/Vol] 110 U/L High 34-104 [facility] Comment on above: Result Comment: PERF ORMED BY: [place] [address] PATHOLOGIST ADVERTISING STRATEGIST MARKELL WILDE M.D. Performed By: #### C MP wRFX A1C, CBC #### [facility] [address] [place] [address] [place] ALT [Catalytic activity/Vol] 11 U/L Normal 7-52 [facility] Comment on above: Performed By: #### C MP wRFX A1C, CBC #### [facility] [address] [place] [address] [place] Anion gap [Moles/Vol] 10.3 mmol/L Normal 6.0-15.0 [facility] Comment on above: Performed By: #### C MP wRFX A1C, CBC #### [facility] [address] [place] [address] [place] AST [Catalytic activity/Vol] 16 U/L Normal 13-39 [facility] Comment on above: Performed By: #### C MP wRFX A1C, CBC #### [facility] [address] Bilirubin [Mass/Vol] 0.5 mg/dL Normal 0.3-1.0 [facility] Comment on above: Performed By: #### C MP wRFX A1C, CBC #### [facility] [address] Calcium [Mass/Vol] 9.5 mg/dL Normal 8.6-10.3 [facility] Comment on above: Performed By: #### C MP wRFX A1C, CBC #### [address] Chloride [Moles/Vol] 102 mmol/L Normal 98-107 [facility] Comment on above: Performed By: #### C MP wRFX A1C, CBC #### [facility] [address] [place] [address] CO2 [Moles/Vol] 31.9 mmol/L High 21.0-31.0 [facility] Comment on above: Performed By: #### C MP wRFX A1C, CBC #### [address] Creatinine [Mass/Vol] 1.01 mg/dL Normal 0.60-1.20 [facility] Comment on above: Performed By: #### C MP wRFX A1C, CBC #### [facility] [address] [place] [address] [place] GFR/1.73 sq M.predicted MDRD (S/P/Bld) [Vol rate/Area] 56.627 mL/min/{1.73_m2} [facility] Comment on above: Performed By: #### C MP wRFX A1C, CBC #### [facility] [address] [place] [address] Globulin (S) [Mass/Vol] 2.0 g/dL [facility] Comment on above: Performed By: #### C MP wRFX A1C, CBC #### [facility] [address] [place] [address] [place] Glucose [Mass/Vol] 89 mg/dL Normal 70-100 [facility] Comment on above: Performed By: #### C MP wRFX A1C, CBC #### [facility] [address] [place] [id number] [place] Potassium [Moles/Vol] 4.2 mmol/L Normal 3.5-5.1 [facility] Comment on above: Performed By: #### C MP wRFX A1C, CBC #### [facility] [address] Protein [Mass/Vol] 5.7 g/dL Low 6.4-8.9 [facility] Comment on above: Performed By: #### C MP wRFX A1C, CBC #### [facility] [address] [place] [address] [place] Sodium [Moles/Vol] 140 mmol/L Normal 136-145 [facility] Comment on above: Performed By: #### C MP wRFX A1C, CBC #### [facility] [address] [place] [id number] [place] Urea nitrogen [Mass/Vol] 23 mg/dL Normal 7-25 [facility] Comment on above: Performed By: #### C MP wRFX A1C, CBC #### [facility] [address] [place] [id number] [place] Calcium [Mass/volume] in Ser um or PlasmaOrdered By: Anju Lees on 04-17-2023 Calcium [Mass/Vol] 9.5 mg/dL 8.6-10.3 [facility] Carbon dioxide, total [Moles /volume] in Serum or PlasmaOrdered By: Anju Lees on 04-17-2023 CO2 [Moles/Vol] 31.9 mmol/L 21.0-31.0 [facility] Chloride [Moles/volume] in S martita or PlasmaOrdered By: Anju Lees on 04-17-2023 Chloride [Moles/Vol] 102 mmol/L 98-107 [facility] Complete Blood Count Auto Di ffon 04-17-2023 Basophils (Bld) [#/Vol] 0.1 10*3/uL Normal 0.0-0.2 [facility] Comment on above: Result Comment: PERF ORMED BY: [place] [address] PATHOLOGIST ADVERTISING STRATEGIST MARKELL WILDE M.D. Performed By: #### C MP wRFX A1C, CBC #### [facility] [address] [place] [address] Basophils/100 WBC (Bld) 0.6 % Normal . [facility] Comment on above: Performed By: #### C MP wRFX A1C, CBC #### [address] Eosinophils (Bld) [#/Vol] 0.3 10*3/uL Normal 0.0-0.45 [facility] Comment on above: Performed By: #### C MP wRFX A1C, CBC #### [address] Eosinophils/100 WBC (Bld) 3.1 % Normal . [facility] Comment on above: Performed By: #### C MP wRFX A1C, CBC #### [address] Erythrocyte distribution width (RBC) [Ratio] 16.3 % High 11.9-15.3 [facility] Comment on above: Performed By: #### C MP wRFX A1C, CBC #### [facility] [address] [place] [address] Hematocrit (Bld) [Volume fraction] 33.3 % Low 34.0-46.4 [facility] Comment on above: Performed By: #### C MP wRFX A1C, CBC #### [address] Hemoglobin (Bld) [Mass/Vol] 11.1 g/dL Low 11.8-15.4 [facility] Comment on above: Performed By: #### C MP wRFX A1C, CBC #### [address] [place] [address] [place] Lymphocytes (Bld) [#/Vol] 2.1 10*3/uL Normal 1.00-4.8 [facility] Comment on above: Performed By: #### C MP wRFX A1C, CBC #### [facility] [address] Lymphocytes/100 WBC (Bld) 22.7 % Normal . [facility] Comment on above: Performed By: #### C MP wRFX A1C, CBC #### [address] MCH (RBC) [Entitic mass] 27.9 pg Normal 24.7-34.3 [facility] Comment on above: Performed By: #### C MP wRFX A1C, CBC #### [address] MCV (RBC) [Entitic vol] 83.3 fL Normal 80-100 [facility] Comment on above: Performed By: #### C MP wRFX A1C, CBC #### [address] Mean Corpuscular HGB Conc 33.4 g/dL Normal 32.0-35.0 [facility] Comment on above: Performed By: #### C MP wRFX A1C, CBC #### [address] Monocytes (Bld) [#/Vol] 0.6 10*3/uL Normal 0.0-0.8 [facility] Comment on above: Performed By: #### C MP wRFX A1C, CBC #### [place] [address] [place] Monocytes/100 WBC (Bld) 6.5 % Normal . [facility] Comment on above: Performed By: #### C MP wRFX A1C, CBC #### [address] Neutrophils (Bld) [#/Vol] 6.1 10*3/uL Normal 1.8-7.7 [facility] Comment on above: Performed By: #### C MP wRFX A1C, CBC #### [facility] [address] Neutrophils/100 WBC (Bld) 67.1 % Normal . [facility] Comment on above: Performed By: #### C MP wRFX A1C, CBC #### [facility] [address] NRBC% 0.1 /100{WBC} Normal 0-0.5 [facility] Comment on above: Performed By: #### C MP wRFX A1C, CBC #### [facility] [address] Platelet mean volume (Bld) [Entitic vol] 8.7 fL Normal 6.3-10.7 [facility] Comment on above: Performed By: #### C MP wRFX A1C, CBC #### [facility] [address] Platelets (Bld) [#/Vol] 249 10*3/uL Normal 150-450 [facility] Comment on above: Performed By: #### C MP wRFX A1C, CBC #### [facility] [address] RBC (Bld) [#/Vol] 4.00 10*6/uL Normal 3.60-5.[address] [facility] Comment on above: Performed By: #### C MP wRFX A1C, CBC #### [facility] [address] [place] [address] [place] WBC (Bld) [#/Vol] 9.1 10*3/uL Normal 3.8-11.6 [facility] Comment on above: Performed By: #### C MP wRFX A1C, CBC #### [facility] [address] [place] [address] [place] Creatinine [Mass/volume] in Serum or PlasmaOrdered By: Anju Lees on 04-17-2023 Creatinine [Mass/Vol] 1.01 mg/dL 0.60-1.20 [facility] ECG 12 lead ECGon 04-17-2023 ECG 12 lead ECG [facility] [place] [address] [place] [address] Electrocardiograph Report Signed Patient: Zachary Maynard MR#: [id number] : 1945 Acct:[id number] Age/Sex: 77 / F ADM Date: 04/17/23 Loc: Room: Type: [facility] Attending Dr: Anju Lees MD Ordering [...] previous ECGs available Confirmed by BAILEE MACIAS [id number] on 04/17/2023 3:12:20 PM Referred By: FREDDY Electronically Signed By:JASON MARIE MD [facility] Transcribed By: MUS Signed By Bonifacio Marie MD 04/17/23 1512 Normal [facility] Eosinophils Auto (Bld) [#/Vo l]Ordered By: Anju Lees on 04-17-2023 Eosinophils (Bld) [#/Vol] 0.3 10*3/uL 0.0-0.45 [facility] Eosinophils/100 WBC Auto (Bl d)Ordered By: Anju Lees on 04-17-2023 Eosinophils/100 WBC (Bld) 3.1 % . [facility] Erythrocyte distribution wid th Auto (RBC) [Ratio]Ordered By: Anju Lees on 04-17-2023 Erythrocyte distribution width (RBC) [Ratio] 16.3 % 11.9-15.3 [facility] Globulin Calc (S) [Mass/Vol] Ordered By: Anju Lees on 04-17-2023 Globulin (S) [Mass/Vol] 2.0 g/dL [facility] Glucose [Mass/volume] in Ser um or PlasmaOrdered By: Anju Lees on 04-17-2023 Glucose [Mass/Vol] 89 mg/dL 70-100 [facility] Hematocrit Auto (Bld) [Volum e fraction]Ordered By: Anju Lees on 04-17-2023 Hematocrit (Bld) [Volume fraction] 33.3 % 34.0-46.4 [facility] Hemoglobin [Mass/volume] in BloodOrdered By: Anju Lees on 04-17-2023 Hemoglobin (Bld) [Mass/Vol] 11.1 g/dL 11.8-15.4 [facility] Leukocytes [#/volume] correc lovely for nucleated erythrocytes in Blood by Automated counOrdered By: Anju Lees on 04-17-2023 WBC corrected for nucl RBC Auto (Bld) [#/Vol] 9.1 10*3/uL 3.8-11.6 [facility] Lymphocytes Auto (Bld) [#/Vo l]Ordered By: Anju Lees on 04-17-2023 Lymphocytes (Bld) [#/Vol] 2.1 10*3/uL 1.00-4.8 [facility] Lymphocytes/100 WBC Auto (Bl d)Ordered By: Anju Lees on 04-17-2023 Lymphocytes/100 WBC (Bld) 22.7 % . [facility] MCH Auto (RBC) [Entitic mass ]Ordered By: Anju Lees on 04-17-2023 MCH (RBC) [Entitic mass] 27.9 pg 24.7-34.3 [facility] MCHC Auto (RBC) [Mass/Vol]Or dered By: Anju Lees on 04-17-2023 MCHC (RBC) [Mass/Vol] 33.4 g/dL 32.0-35.0 [facility] MCV Auto (RBC) [Entitic vol] Ordered By: Anju Lees on 04-17-2023 MCV (RBC) [Entitic vol] 83.3 fL 80-100 [facility] Monocytes Auto (Bld) [#/Vol] Ordered By: Anju Lees on 04-17-2023 Monocytes (Bld) [#/Vol] 0.6 10*3/uL 0.0-0.8 [facility] Monocytes/100 WBC Auto (Bld) Ordered By: Anju Lees on 04-17-2023 Monocytes/100 WBC (Bld) 6.5 % . [facility] Neutrophils Auto (Bld) [#/Vo l]Ordered By: Anju Lees on 04-17-2023 Neutrophils (Bld) [#/Vol] 6.1 10*3/uL 1.8-7.7 [facility] Neutrophils/100 WBC Auto (Bl d)Ordered By: Anju Lees on 04-17-2023 Neutrophils/100 WBC (Bld) 67.1 % . [facility] No Panel InformationOrdered By: Anju Lees on 04-17-2023 Estimated GFR (CKD-EPI) 56.627 mL/Min [facility] Creatinine Clearance (Chem N/A [facility] Nucleated erythrocytes [Pres ence] in Blood by Automated countOrdered By: Anju Lees on 04-17-2023 Nucleated RBC Auto Ql (Bld) 0.1 /100{WBC} 0-0.5 [facility] Platelet mean volume Auto (B ld) [Entitic vol]Ordered By: Anju Lees on 04-17-2023 Platelet mean volume (Bld) [Entitic vol] 8.7 fL 6.3-10.7 [facility] Platelets Auto (Bld) [#/Vol] Ordered By: Anju Lees on 04-17-2023 Platelets (Bld) [#/Vol] 249 10*3/uL 150-450 [facility] Potassium [Moles/volume] in Serum or PlasmaOrdered By: Anju Lees on 04-17-2023 Potassium [Moles/Vol] 4.2 mmol/L 3.5-5.1 [facility] Protein [Mass/volume] in Ser um or PlasmaOrdered By: Anju Lees on 04-17-2023 Protein [Mass/Vol] 5.7 g/dL 6.4-8.9 [facility] RBC Auto (Bld) [#/Vol]Ordere d By: Anju Lees on 04-17-2023 RBC (Bld) [#/Vol] 4.00 10*6/uL 3.60-5.[address] [facility] Serum or plasma albumin/glob ulin mass ratioOrdered By: Anju Lees on 04-17-2023 Albumin/Globulin [Mass ratio] 1.9 {ratio} [facility] Serum or plasma anion gap de terminationOrdered By: Anju Lees on 04-17-2023 Anion gap [Moles/Vol] 10.3 mmol/L 6.0-15.0 [facility] Sodium [Moles/volume] in Ser um or PlasmaOrdered By: Anju Lees on 04-17-2023 Sodium [Moles/Vol] 140 mmol/L 136-145 [facility] Urea nitrogen [Mass/volume] in Serum or PlasmaOrdered By: Anju Lees on 04-17-2023 Urea nitrogen [Mass/Vol] 23 mg/dL 7-25 [facility] WBC Auto (Bld) [#/Vol]Ordere d By: Anju Lees on 04-17-2023 WBC (Bld) [#/Vol] 9.1 10*3/uL 3.8-11.6 [facility] XR hand RT min 3V*on 024 XR hand RT min 3V* [facility] [place] [address] XRay Report Signed Patient: Zachary Maynard MR#: [id number] : 1945 Acct:[id number] Age/Sex: 77 / F ADM Date: 04/08/23 Loc: [facility] Room: Type: [facility] Attending Dr: Anju Lees MD Copies [...] Sammie Arizmendi M.D.04/08/2023 1:57 PM Dictation Location: [employer] Transcribed By: AUSTIN 04/08/23 135 Dictated By: Sammie Arizmendi MD 04/08/231352 Signed By: 04/08/231356 [facility] ECHOCARDIO M/2D COMPLETEon 0 05-29-2022 ECHOCARDIO M/2D COMPLETE Patient: ZACHARY MAYNARD Exam Date: 05/29/2022 : 1945 Gender:F Ordering : DR ADINA BUNCH . Admission #: [id number] Family : Order #: [id number] CLICK HERE TO VIEW EXAM ECHOCARDIOGRAM REPORT [...] Shore M.D. on 05/30/2022 at 18:32 Normal [facility] MRI BRAIN WO CONon MRI BRAIN WO [...] RENATA GAYTAN Date: 2022-05-29 13:51 Normal [facility] US CAROTID ART BILon 023 US CAROTID [...] RENATA GAYTAN Date: 2022-05-29 12:55 Normal [facility] 01-24 SARS-CoV-2 (COVID-19) RNA ARMIN+probe Ql (Unsp spec) Not detected Normal NOT DETECTED [facility] Comment on above: Result Comment: This test is not yet approved or cleared by the [place] FDA. When there are no FDA-approved or cleared tests available, and other criteria are met, FDA can make tests available under an emergency access mechanism called an Emergency Use Authorization (EUA). The EUA for this test is supported by the Fire Supervisor of Health and Human Service's (HHS's) declaration [...] consistent with SARS-CoV-2. Performed By: #### [facility] #### [facility] [address] [place] [address] Dr. Samuel Kang Ambulatory Clinical Summaryo n 09-11-2020 Ambulatory Clinical Summary {[id number] }CD:[id number] Normal [facility] Patient Educationon 09-12-19 21 Patient Education Nutrition [...] could (more content not included)... Normal [facility] Urology Office/Clinic Noteon 09-11-2020 Urology Office/Clinic Note Chief Complaint Pt is here for a follow up to cystocele w/ PVR HPI Staff Zacahry is a 75 y.o. female here for [...] MD, Jude Farias URO In 6 months [phone] Additional Instructions: Patient Education Calorie Counting for [...] (COVID-19) mR (more content not included)... Normal [facility] Comment on above: Result Comment: Elec tronically Signed By: Thuan ARMANDO MD\.br\Date and Time Signed: 09/11/20 16:11 EDT\.br\Electronically Co-Signed By: Anastasia Cabral\.br\Date and Time Co-Signed: 09/11/20 16:08 EDT Ambulatory Clinical Summaryo n 08-08-2020 Ambulatory Clinical Summary {[id number] }CD:[id number] [facility] Patient Educationon 08-09-19 21 Patient [...] nerve stimulation). ? For women, using a rn medical inpatient services to prevent urine leaks. This is a [...] after experiencing incontinence. General instructions ? Take yddz-rjm-hguatnb and prescription medicines only as (more content not included)... Normal [facility] Urology Office/Clinic Noteon 08-08-2020 Urology Office/Clinic Note [...] MD, Jude Farias, URO [address] [place] [address]- Additional Instructions: 1mos. f/u Patient Education Urinary [...] of urethral (more content not included)... Normal [facility] Comment on above: Result Comment: Elec tronically Signed By: Tushar Nunez MD, Jude Farias\.br\Date and Time Signed: 08/08/20 11:28 EDT\.br\Electronically Co-Signed By: Kisha Stevens MA\.br\Date and Time Co-Signed: 08/08/20 11:15 EDT Operative Reporton Operative Report [id number]#1.00CD: 127 [facility] Pathology Noteon 07-27-2020 Pathology Note [id number]#1.00CD :127 [facility] Comment on above: Result Comment: Elec tronically Signed By: Tushar Nunez MD, Jude Farias\.br\Date and Time Signed: 08/07/20 11:22 EDT ECG 12-Leadon 07-24-2020 ECG 12-Lead [id number]: 127 [facility] ED Note-Physicianon 07-25-19 ED Note-Physician [id number]#1.00CD:1 27 [facility] Lab Reportson 07-24-2020 Lab Reports [id number]#1.00CD: 127 [facility] Lab Reports [id number]#1.00CD: 127 [facility] RAD - MISCon 07-24-2020 RAD - MISC [id number]#1.00CD: 127 [facility] Insurance Correspondence Off iceon 07-20-2020 Insurance Correspondence Office [id number]#1.00CD: 127 [facility] Operative Reporton Operative Report [id number]#1.00CD: 127 [facility] Physician Orderon 07-12-2020 Physician Order [id number]#1.00CD: 127 [facility] Pre-Authorization for Medica l Treatmenton 07-12-2020 Pre-Authorization for Medical Treatment [id number]#1.00CD :127 [facility] Ambulatory Clinical Summaryo 07-11-2020 Ambulatory Clinical Summary {[id number] }CD:[id number] [facility] Patient Educationon 07-12-19 Patient Education [...] including vitamins, herbs, eye drops, creams, and cnhc-xcn-jxojogn medicines. ? Any problems you or family [...] diabetes medicines or blood thinners. ? Taking lgke-vvv-qjatllu medicines, vitamins, herbs, and supplements. ? Taking [...] to r (more content not included)... Normal [facility] Urology Office/Clinic Noteon 07-11-2020 Urology Office/Clinic Note Chief Complaint 3 week follow up This patient is a 75-year-old female with a history of a grade 2 midline cystocele. She is here today to discuss treatment options. She does have some symptoms of stress incontinence. She underwent cystoscopic examination with dilation of her urethra on May 08 2020. [facility] Staff Zachary is a 75 [...] urine and/or bladder capacity by US- non-imaging 81258 Urnls Dip Stick Auto w/o Microscopy POC 66179 Urology Procedure Order 2. Cystocele with prolapse [...] [facility] [address], [place] [address]- Additional Instructions: Patient Education Urethral Vaginal Sling [...] UTI Hypertensio (more content not included)... Normal [facility] Comment on above: Result Comment: Elec tronically Signed By: Jude Finley Jr., MD\.br\Date and Time Signed: 07/11/20 14:49 EDT\.br\Electronically Co-Signed By: Libby Chambers MA\.br\Date and Time Co-Signed: 07/11/20 14:30 EDT Ambulatory Clinical Summaryo n 06-20-2020 Ambulatory Clinical Summary {[id number] }CD:[id number] Virgil Corea [facility] Patient Educationon 06-21-19 Patient Education Urology Urethral [...] including vitamins, herbs, eye drops, creams, and tbvk-hvk-smomloe medicines. ? Any problems you or family [...] tells you to take them. ? Taking wsvq-blc-bylrbhx medicines, vitamins, herbs, and supplements. General instructions [...] these instructions at home: Medicines ? Take tkww-cbb-apcoubu and prescription medicines only as told by [...] to prevent or treat constipation: ? Take absh-hoe-uinmhri or prescription medicines. ? Eat foods that [...] pa (more content not included)... Normal [facility] Urology Office/Clinic Noteon 06-20-2020 Urology Office/Clinic Note [...] surgical repair for her cystocele. HPI Staff Mairama is a 75 y.o. female here for [...] Urnls Dip Stick Auto w/o Microscopy POC 26961 I have reviewed the previous health record information and history for this patient from Dr. Finley Follow-up With When Contact Information Tushar Nunez MD, Jude Farias, URO [facility] [address] [place] [address]- Additional Instructions: 2 weeks Patient Education Urethral [...] mixed type (more content not included)... Normal [facility] Comment on above: Result Comment: Elec tronically Signed By: Tushar Nunez MD, Jude Farias\.br\Date and Time Signed: 06/20/20 14:36 EDT\.br\Electronically Co-Signed By: Maria Del Carmen Hernandez MA\.br\Date and Time Co-Signed: 06/20/20 14:24 EDT Coding Summary.on 06-16-2020 Coding Summary. CD:[id number] Gh0b Ww+PGhlYWQ+LH1VQXJnF72tr CNqbZ9PU5lSUW8GHWZJRUSUO C8BEL2drVX0QBrrU1UxuoKw SqllwBMoED31JJl3OTK8gSel HHwohF5quOYaH1j8TxVlSH15 iK07XOqpVSKcMwP9BkUmxjxs bWFy I6weCmBdjTFyLov+PHRhYmxl IHdpZHRoPScxMDAlJyBzdHls RF0lAk6zCWIsVZPxnMyqcCSu OiBj o9eqKPBqPRxvHF4mfXzuP0Gd gXD3JBCex2a5Sr91cLX+PHRk GKC8mMhxEEwxx127XaWpn6bi IDM3 pJCsAXuhHAR2Q19gr4U4UPKw XOGzRVR9sFF7gJ8ekBgdjmmz R7LcpOKcNbN0UQP8zQMqpZ7a bGln hncvpE3oKqh+M90DMV1CTRYM BF5GMvv7D8CvZcsziKQ+PC90 BEYwEN20lLXngHGfx3xgrUa6 JzEw OUZvLIP9xDeaPQrbu0UtMDCd L84qoXOro9T2WJMqhEpdoWKz UvGcmLL8pU1xBMywnivcs1vf dzsn Rmhzm9ytzx03yQ22I10rZXte QSPqZHE0YDEiQGQpaBvxkb3i wX8dSd9+TIwed8ghu5iyqNw2 IjIw XQDvbjQftNxsPMB5u2EeZw33 A8DctYcqq5YdUwa9ad58fIGn u5I0nSZ5CUmxPYGafJ8oHBve ZnQ6 YMCtWzGwgL62gCSeJIraTm1o kEbnyMrrFO8gZAMwzlurLJUm fT4xRQIbdYNxsUldHL1yZYUh bjtm u742XvQvESI3NWFcgTVcX7Ov jQ8qKcCtORLiHCTqF7NpfDJu LGagC101HSlqPuK3GPPxfwBp Y2Fs DHUxbVklNmI9g2S8Li7Wg4Sl cmdeIRW3RKbqONV7WpDrDgIi SwU3R3VhJwo0QHLspHdqJO6n J3Bh SOIsmfldigprdHK9SDGhOGFz vI80fGAaCQhqGy4kj0T2r923 SXAhXKWawO16Ga7guJbnYXVk dCBU bF5ezelfa9iivzflUdGmDRHu CGu0VLw7NHQvcEnpUgRqNLO9 EdC7YON1sWTqbM9ffJotcmoa dG9w Oyc+L53beU6mJKL0FAB7jrbc SLMsayHlCI61IW07P6ZkWvka dGFibGU+VENjqcXtzRaqVF1i YmFj v9ngb7RhUJjjZ5KpEAQeRLug Ygu3BUSzNME8pHQ9tN3zAJQc OPvuy5P9lXM7N8EjspGauj9f b2xs FZFhLBpkO26amCSmw6X4OCUg jCZ6KDJxwOiaRlWqtC33Ypi+ MCBlxTltp1OjDzzqo6idr5gq dGg9 FyQwCBBfsbXdsNfqJEK9m2Wa Ad34N31vDIgsKRPiTKRoJLJz MHRwpSanfp1qiH6iAa6+PGNv bCB3 oKA7kP1nJGDrBwR6EFcmK362 BfCqdWPaXjkax5zog1nnaOt2 BkNjIIMuswOnrBgeZBY8h0Hf Lz48 N91uNCscJTUoRUZqTPDvMNXq gGrbhp8okB3iEu4+JN6af3dr at48fE97vMW+NNBvXUC6ePer PSdw DCVocF5zDUluQfD0YRVcMsFy aB00gUDuQKhoPb3dsQpyeZby BC5tYQTitvgwx163RxTaz3zr IDEw dNDwBEepAJF4E07nf1M1ZMMt GKXpZRC5zSN2kY7taHnimggl bGVmdDsgdmVydGljYWwtYWxp Z246 IHRvcDsnPlBhdGllbnQgTmFt XXt8D1TkOif8JUIswYchPN3w aNIhVVohGg4nsBzykPmeSW2x NTBp ntkrv912IhFvq9rvWIRpkTQk COhbNEU4V31as4E5GDQvVGXn TRL1aAQ0tN7wrRxzobbdvTOr dDsg naOwcYybVJubILsrM374VXGt aUciOxOanzXtVBWlaXY2UC13 AN98gXItw3M4fSY6L5BjOALe bmct tgkiwOU7CSKfEHTbrY56Va3m aEwkRh5hHPSrZRB1UGUmsAUc T0IpfU8vYmPmMVAcHBYoN5Me eHQt SVafI103WGzaBeG8MURyznLg N1GnGXGjnVufLcH7e8Y2Wv4G P3R1IQ17UH92hWFhg7V5qTL1 J3Bh ROLcvvuzpwattHZ6TUUmUTLp lA01Lh7knEitCo8kYHSfVYN8 IPGffMIaV8ApeK7fJnYqGDJr MDAw C1KvpVOeVVjjT908DCcfEnJ2 PJMkihRqO9CyGCOzeZppMtO0 i1J9Hs6NRXt7OO25WI09tSMi c3R5 hFY1G3FvGIDbnnkaishblXK4 CBMoVRCqcD96Xo9vjEmhQd4s KIQcOJS1HYCezMOuA0DchJ8r OiAj LTXdHUPiG8NkpBAeSVwmJ988 SZdsNeJ7JMNpcvPhL4YmWSHs vFsvMkG2z6G5Yn0VXSNnPA97 IFR5 iIC0ET94SK72J4ReVgswoVTf bGU+PHRhYmxlIHdpZHRoPScx NBBbOzEtiFcrFH5bNa0nCBQr LWNv gYdjxABbXvAqw9pqEJAeDSex AR1clQnvK3NxxQX4IKGdv9x0 Kb64T52wZ1GpcLY+PGNvbCB3 aWR0 wZ6sXjIjUxM4PAkvQ917ZeGs xNLkAtuhy4krr5dfuOf2HiI0 NAUfzeMwhKmyBAD6a7BhWn82 Y29s IHdpZHRoPSIxNSUiIHZhbGln py8qvN1eSm9+WAHzfUE2qVC0 mC5iUkCvMrF2FOsmM065ZdPd cCIv Mgnee5aft7jqaNp0KkNjZURa ztTpyCljWOL9j9JxJe22H1Na dOxnk9GsMwg5be24zUBym4W1 bGU9 A7ViDOJadbydrYGaxPddCY5i INUsgjssDLXasC2vPVNnA5l2 RlXhGxZ8TTuaO4PjemP3UGVh cHQg LWpyNXH2C04nb4N6AUUdNVVx ZEG5xRU1nA6muUwbhibjdSEh oKykgcEmwKiiFJqaMCitA161 IHRv bFebBFYqgF5rWTEycXTcjXbu WW9uRJTmxpquBurAQ8yRAM6U LCBHUkVUVEEgQTwvdGQ+PHRk IHN0 uDclBBpsRPLxfC4mVLFgG7u6 XxJdYlR0ZZirY7ZdDWTrcojt Zu48jJ7xIjVlBwW3HAqvP2Ag bnQ6 KVKfxRZoPXmdZHW8B86ze9A8 MFDiMZZdOIR6gTV9mR4fxPjb bjogbGVmdDsgdmVydGljYWwt YWxp P530PCUwrIypRiCpIqQoNiP6 VYZ5L3XsIom7QYLosNeeCN8i cWWaMGbtPb3gyWighSitDO3p NTBp nvexZIXscH6dVSMqkCFgqNjq JE6ySATikkqmx086FmFhBIC4 JYWtfPJaE4XkkE6iZcRtWYFn MDAw O1BbdFTkICcgV659WJovAeS9 OSXouoPsO6XxNNCwvXgcKaY2 h1A0Ys54RnGVLHCinglvmJX+ PHRk JCU9lPjiVVcxUTVidE6tVHAb B8b6OvCnEgS7ZIfnV0LxKDGu rbjhZl92zM1qIqLpQeU8DMkr O2Zv umR1PVHpjZStXAwbGHH3S74o l4J7OHVhXRPlECJ2bWM5qF2y bGlnbjogbGVmdDsgdmVydGlj YWwt BTrwQ687QOTiqPocWpKrsFZj ZTwvdGQ+JNMxAUN7pXapUBwy GHOwyA2uEDHcK3a2UvJmFeD0 MGlu B0OsEUTckvviNt90pM6aVrQk EnC8OEbfL8JcwkU3KMCcjKFp KIduPPK7P18uc3M0NPIiVEDw MDA7 bSS6eD3gjCsftkvuuFXkgAnh obTebInwYAliQZpsR768RQRx zGieFh75mFKelBuyqfS0Y6Xj Pjwv dHI+HT62RZMzZH29kZCroSDr f9zfhRq2RcUtGZQaYVD2wOmu EIedv8ZeCTHiZ20ubTGza1V5 IGNv mZbfmTHoKsAinPI6bU3uOTbw ysuim0bjwhewGfhjy3nycn17 zE74T89dCQaeYKRnMGQdSCAq IHZh nBplfd1pdF0vEb0+PGNvbCB3 qNX0dN9zAaYmHcS1YWpzA150 BzEuwNZxKissn3uen9edcBn7 IjIw ACNxrdHjgNbyBSA4y0DfSx38 D72vFYltQCQdILAzAZQmRQDb xMjbpg2klY4eNk3+AR2pb1gw cm91 eN40kPB+FMAzJIU4gQyjWAmp AAQwkC4cDRlaFnP5NFMqAeVo xP68kEXjRLsiZv0ryUppxCnv MC4w WSNocbpqb433MoYvm1hqPLHq pSQtFEfgKQI9M03ze8M4MTLl UNBlHAZ5xBI0uC6ugQkarnhq bGVm tFgyrcEvqEfrBPptEFgsL633 JTHowPakSjJkhCIiY8cytbJS UZ6bNpppcRP+SGTbWFC3lKty PSdw OWUsbX0wKGYcN3r4DhXsNoW1 OKkxL7BxxaR4TTBzrASpHPFo iSZTrZ7qeaomk1yvraorIjMq MDAw BFj9XPv2HFVmiKwaDpIfHML7 KeS2SBY0yNMohE4pxNflssdc kW4cNqw+RklOOjwvdGQ+PHRk IHN0 hGsbSNarIBOnwA0hQNNgH0v2 ElMjLlB6STatW6CrvuZ1AMQf gOQgEGBxgAXNnE2zrhnxe5tg cjog TxOhQIYbJOl0SPm3XCIfgWjy SrJtNUQ0SdU7XAW2qQAxrY3n kItwacxyyH2iTje+TVJOOjwv dGQ+ FCAoDYZ2dFqjJFejENAdpZ4r AEEoH0r7RtPbBtJ6WAhvO0Er vqW8HBSokZVaKBHwbARQjO7f cztj x7hrsscsCtZdVBQkQCx2UPk6 KPVgzXfhXiXhFNO1TfA5PNK1 nPBbkX5yiUktwfpgrS7wFqn+ UGF5 SUC4YU95BK34F9WhDhgdwXEl bGU+PHRhYmxlIHdpZHRoPScx IEPjDtJxgBuzUY8kMe9pRBCz LWNv bGxh (more content not included)... Normal [facility] Consent for Procedure/Surger yon 06-15-2020 Consent for Procedure/Surgery [id number]#1.00CD :127 Normal [facility] Consent for Treatmenton 05-26 Consent for Treatment [id number]#1.00CD: 127 Normal [facility] Discharge Instructionson Discharge Instructions [id number]#1.00CD :127 Normal [facility] IntraOperative Documentson 0 06-15-2020 IntraOperative Documents [id number]#1.00CD :127 Normal [facility] Main OR Intraoperative Recor don 06-15-2020 Main OR Intraoperative Record IntraOp Document Type FTURO Summary Primary Physician: Jude Finley Jr., MD Finalized Date/Time: 06/15/20 15:02:47 Pt. Name: ZACHARY MAYNARD Srinath Cordero/Sex: 1945 Female Med Rec #: [id number] Physician: Jude Finley Jr., MD Financial #: [id number] Pt. Type: O Room/Bed: / Admit/Disch: 06/15/20 13:40:05 - Institution: Case Times FTURO Entry 1 Patient Times In Room 06/15/20 14:48:00 Out Room 06/15/20 15:02:00 Procedure Times Start 06/15/20 14:50:00 Stop 06/15/20 14:52:00 Anesthesia Times Last Modified By: Sirisha Manuel RN 06/15/20 15:02:42 Case Attendance FTURO Entry 1 Entry 2 Entry 3 Case Attendee Tushar Nunez MD, Jude Farias [facility], Pauly Manuel RN, Sirisha Douglass Role Performed Surgeon - Primary Scrub - Primary Gas Or Water Meter Installer - Primary Time In 06/15/20 14:48:00 06/15/20 [...] Jude Finley Jr., MD, Verified (If [facility]) Sirisha Manuel RN Time Out Complete [...] By: Sirisha Manuel RN 06/15/20 15:02 Normal [facility] Main OR Preoperative Recordo n 06-15-2020 Main OR Preoperative Record Holding Area Document Type FTURO Summary Primary Physician: Jude Finley Jr., MD Finalized Date/Time: 06/15/20 14:34:27 Pt. Name: ALEYDA, ZACHARY Yo D.O.B./Sex: 1945 Female Med Rec #: [id number] Physician: Jude Finley Jr., MD Financial #: [id number] Pt. Type: O Room/Bed: / Admit/Disch: 06/15/20 [...] 14:25 Sirisha Manuel RN 06/15/20 14:34 Normal [facility] Operative Reporton Operative Report Patient: ZACHARY MAYNARD [...] urine. The Urethra was dilated to: 24 Swedish w/ sounds. Devices Implanted: None. Removal: Cystoscope is removed, The patient tolerated it well. Postoperative Information Discharge: Patient is discharged home with antibiotic coverage, Follow up arranged, Office visit will be planned to make arrangements for repair of cystocele.. Normal [facility] Comment on above: Result Comment: Elec tronically Signed By: Jude Finley Jr., MD\.br\Date and Time Signed: 06/15/20 14:59 EDT Pre-Authorization for Medica l Treatmenton 06-13-2020 Pre-Authorization for Medical Treatment [id number]#1.00CD :127 Normal [facility] Ambulatory Clinical Summaryo n 06-12-2020 Ambulatory Clinical Summary {[id number] }CD:[id number] Normal [facility] Patient Educationon 06-13-19 Patient Education Urology Urinary [...] nerve stimulation). ? For women, using a rn medical inpatient services to prevent urine leaks. This is a [...] after experiencing incontinence. General instructions ? Take kmjm-nnu-wnlpycf and prescription medicines only as (more content not included)... Normal [facility] Urology Office/Clinic Noteon 06-12-2020 Urology Office/Clinic Note Chief Complaint Patient is here for a follow up to [facility] for ball like object HPI Staff Zachary is a 75 y.o. female here for follow up to [place] [facility] for bladder hanging out, patient insists on planning surgery. Previous Dx: bladder infection, bladder outlet obstruction, dysuria, flank pain, gross hematuria, history of UTI, retention of urine, urethral stricture. 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 Patient was seen at [place] [facility] on 06/07/20 for a ball like [...] When Contact Information Jude Finley Jr., MD [phone] Additional Instructions: Patient Education Urinary Incontinence I, [...] Gross hematuria (more content not included)... Normal [facility] Comment on above: Result Comment: Elec tronically Signed By: Jude Finley Jr., MD\.br\Date and Time Signed: 06/12/20 10:30 EDT\.br\Electronically Co-Signed By: Anastasia Cabral\.br\Date and Time Co-Signed: 06/12/20 10:24 EDT Coding Summary.on 05-23-2020 Coding Summary. CODING DATE: 021 FINAL [facility] STATUS: Home (Routine DC) PAYOR: Medicare APC [...] Ryann Villegas Date Saved: 05/23/2020 09:34 am [facility] Consenton 05-22-2020 Consent [id number]#1.00CD: 127 [facility] Consent for Procedure/Surger yon 05-18-2020 Consent for Procedure/Surgery [id number]#1.00CD :127 [facility] Consent for Treatmenton 04-25 Consent for Treatment [id number]#1.00CD :127 [facility] Consent for Treatment [id number]#1.00CD: 127 [facility] Discharge Instructionson Discharge Instructions [id number]#1.00CD :127 [facility] IntraOperative Documentson 0 05-18-2020 IntraOperative Documents [id number]#1.00CD :127 [facility] Main OR Intraoperative Recor don 05-18-2020 Main OR Intraoperative Record IntraOp Document Type FTURO Summary Primary Physician: Jude Finley Jr., MD Finalized Date/Time: 05/18/20 14:11:35 Pt. Name: MARIAMA MAYNARD/Sex: 1945 Female Med Rec #: [id number] Physician: Jude Finley Jr., MD Financial #: [id number] Pt. Type: O Room/Bed: / Admit/Disch: 05/18/20 [...] Kimberly A Role Performed Surgeon - Primary Gas Or Water Meter Installer - Primary Scrub - Primary Time In [...] Glasgow RN, Lou Ann 05/18/20 14:11 Normal [facility] Main OR Preoperative Recordo n 05-18-2020 Main OR Preoperative Record Holding Area Document Type FTURO Summary Primary Physician: Jude Finley Jr., MD Finalized Date/Time: 05/18/20 13:59:17 Pt. Name: MARIAMA MAYNARD /Sex: 1945 Female Med Rec #: [id number] Physician: Jude Finley Jr., MD Financial #: [id number] Pt. Type: O Room/Bed: / Admit/Disch: 05/18/20 [...] Glasgow RN, Lou Ann 05/18/20 13:59 Normal [facility] Operative Reporton Operative Report Patient: Karl MAYNARD [...] urine. The Urethra was dilated to: 28 Swedish w/ sounds. Devices Implanted: None. Removal: Cystoscope is removed, The patient tolerated it well. Postoperative Information Discharge: Patient is discharged home with antibiotic coverage, Follow up arranged. Normal [facility] Comment on above: Result Comment: Elec tronically Signed By: Tushar Nunez MD, Jude Farias\.br\Date and Time Signed: 05/18/20 14:02 EDT Ambulatory Clinical Summaryo n 05-11-2020 Ambulatory Clinical Summary {[id number] }CD:[id number] Normal [facility] Patient Educationon 05-12-19 21 Patient Education Urinary [...] It is (more content not included)... Normal [facility] Urology Office/Clinic Noteon 05-11-2020 Urology Office/Clinic Note [...] Will order Local anesthesia. ABX sent to [facility] in [place]. 2. Retention of urine (R33.9: Retention of [...] procedure, # 2 cap(s), Refills(s) 0, Pharmacy: [facility]/pharmacy #[id number], 163, cm, 05/11/20 8:31:00 EDT, Height/Length Dosing, 64.2, kg, 05/11/20 8:31:00 EDT, W... Measure Post Void residual urine and/or bladder capacity by US- non-imaging 49112 Urnls Dip Stick Auto w/o Microscopy POC 21026 I have reviewed the previous health record information and history for this pt. from Dr. Finley. Follow-up With When Contact Inf (more content not included)... Normal [facility] Comment on above: Result Comment: Elec tronically Signed By: Tushar Nunez MD, Jude Farias\.br\Date and Time Signed: 05/11/20 10:45 EDT\.br\Electronically Co-Signed By: Kisha Stevens MA\.br\Date and Time Co-Signed: 05/11/20 08:53 EDT [facility] Ambulatory Clinical Summary {[id number] }CD:[id number] Normal [facility] Patient Educationon 01-04-20 20 Patient Education Obstetrics [...] to a urinary tract infection. Only take dykl-qwl-pfjmoqb or prescription medicines for pain, discomfort, or fever as directed by your caregiver. SEEK IMMEDIATE MEDICAL CARE IF: You develop chills, fever, or show signs of generalized illness that occurs prior to seeing your caregiver. Document Released: 02/09/2007 Document Revised: 05/04/2012 Document Reviewed: 01/12/2010 ExitCare? Patient Information ?2013 [employer] [facility] Urology Office/Clinic Noteon 01-04-2020 Urology Office/Clinic Note Chief Complaint f/u to cysto UD This patient is a 74-year-old female with a history of gross hematuria and urinary tract infection. She had a recent cystoscopic examination that showed no evidence of malignancy. She was treated by her primary care physician for another urinary tract infection. [facility] Staff Pt is here for [...] Urnls Dip Stick Auto w/o Microscopy POC 95680 3. Dysuria (R30.0: Dysuria) Mild burning w/ urination. I have reviewed the previous health record information and history for this pt. from Dr. Finley. Follow-up With When Contact Information Jude Finley Jr., MD [address] [place] [address]- Additional Instructions: 1mos. w/ pVR Patient Education [...] mg T (more content not included)... Normal [facility] Comment on above: Result Comment: Elec tronically Signed By: Tushar Nunez MD, Jude Farias\.br\Date and Time Signed: 01/04/20 12:26 EST\.br\Electronically Co-Signed By: Kisha Stevens MA\.br\Date and Time Co-Signed: 01/04/20 12:01 EST Operative Reporton 0 Operative Report [id number]#1.00CD :127 Normal [facility] Cult,Bloodon 10-18-2019 Cult,Blood Specimen Description .BLOOD Special Requests 3ML LT A.C. Culture NO GROWTH 6 DAYS Report Status FINAL 10/18/2019 Normal [facility] Comment on above: Performed By: #### C DP, CP, LIP, TROPI, LIPRF, GLYHGB #### [facility] [place] [address] Director Inbound Sales: Brandon Anaya MD Cult,Blood Specimen Description .BLOOD Special Requests back lt arm 3ml Culture NO GROWTH 6 DAYS Report Status FINAL 10/18/2019 [facility] Comment on above: Performed By: #### C DP, CP, LIP, TROPI, LIPRF, GLYHGB #### [facility] [place] [address] [id number] Director Inbound Sales: Brandon Anaya MD Cult,Urineon 10-18-2019 Cult,Urine Specimen Description .CLEAN CATCH URINE Special Requests NOT REPORTED Culture STAPHYLOCOCCUS SPECIES, COAGULASE NEGATIVE >688231 CFU/ML Report Status FINAL 10/17/2019 SUSCEPTIBILITY Organism [...] REPORTED Trimethoprim/Sulfa 20 SUSCEPTIBLE Vancomycin 1 SUSCEPTIBLE [facility] Comment on above: Performed By: #### C DP, CP, LIP, TROPI, LIPRF, GLYHGB #### [facility] [place] [id number] Director Inbound Sales: Brandon Anaya MD Basic Metab w/rfx MGon 10-15 (cont.) [facility] Comment on above: Result Comment: Aver age GFR for 70 or more years old: 75 mL/min/1.73sq m Chronic Kidney Disease: <60 mL/min/1.73sq m Kidney failure: <15 mL/min/1.73sq m eGFR calculated using average adult body mass. Additional eGFR calculator available at: http://www.[employer].com/multiple_crcl_2012.htm Performed By: #### C DP, CP, LIP, TROPI, LIPRF, GLYHGB #### [facility] [place] [address] Director Inbound Sales: Brandon Anaya MD Anion gap [Moles/Vol] 13 mmol/L Normal 9-17 [facility] Comment on above: Performed By: #### C DP, CP, LIP, TROPI, LIPRF, GLYHGB #### [facility] [place] [address] Director Inbound Sales: Brandon Anaya MD Calcium [Mass/Vol] 8.6 mg/dL Normal 8.6-10.4 [facility] Comment on above: Performed By: #### C DP, CP, LIP, TROPI, LIPRF, GLYHGB #### [facility] [place] [address] Director Inbound Sales: Brandon Anaya MD Chloride [Moles/Vol] 97 mmol/L Low 98-107 [facility] Comment on above: Performed By: #### C DP, CP, LIP, TROPI, LIPRF, GLYHGB #### [facility] [place] [phone] Director Inbound Sales: Brandon Anaya MD CO2 [Moles/Vol] 25 mmol/L Normal 20-31 [facility] Comment on above: Performed By: #### C DP, CP, LIP, TROPI, LIPRF, GLYHGB #### [facility] [place] [address] Director Inbound Sales: Brandon Anaya MD Creatinine [Mass/Vol] 0.42 mg/dL Low 0.50-0.90 [facility] Comment on above: Performed By: #### C DP, CP, LIP, TROPI, LIPRF, GLYHGB #### [facility] [place] [id number] Director Inbound Sales: Brandon Anaya MD GFR, Amer >60 Normal >60 [facility] Comment on above: Performed By: #### C DP, CP, LIP, TROPI, LIPRF, GLYHGB #### [facility] [address] [place] [id number] Director Inbound Sales: Brandon Anaya MD GFR,non Amer >60 Normal >60 [facility] Comment on above: Performed By: #### C DP, CP, LIP, TROPI, LIPRF, GLYHGB #### [facility] [address] [place] [id number] Director Inbound Sales: Brandon Anaya MD Glucose [Mass/Vol] 87 mg/dL Normal 70-99 [facility] Comment on above: Performed By: #### C DP, CP, LIP, TROPI, LIPRF, GLYHGB #### [address] [address] Director Inbound Sales: Brandon Anaya MD Potassium [Moles/Vol] 3.7 mmol/L Normal 3.7-5.3 [facility] Comment on above: Performed By: #### C DP, CP, LIP, TROPI, LIPRF, GLYHGB #### [facility] [address] [place] [id number] Director Inbound Sales: Brandon Anaya MD Sodium [Moles/Vol] 135 mmol/L Normal 135-144 [facility] Comment on above: Performed By: #### C DP, CP, LIP, TROPI, LIPRF, GLYHGB #### [facility] [address] [place] [id number] Director Inbound Sales: Brandon Anaya MD Urea nitrogen [Mass/Vol] 14 mg/dL Normal 8-23 [facility] Comment on above: Performed By: #### C DP, CP, LIP, TROPI, LIPRF, GLYHGB #### [facility] [address] [place] [id number] Director Inbound Sales: Brnadon Anaya MD BUN/CRE Ratio NOT REPORTED Normal 9-20 [facility] Comment on above: Performed By: #### C DP, CP, LIP, TROPI, LIPRF, GLYHGB #### [facility] [address] [place] [address] Director Inbound Sales: Brandon Anaya MD Staging: NOT REPORTED Normal [facility] Comment on above: Performed By: #### C DP, CP, LIP, TROPI, LIPRF, GLYHGB #### [facility] [place] [address] Director Inbound Sales: Brandon Anaya MD Basic Metabolic Panel w/ Ref kervin to MGon 10-16-2019 Anion gap [Moles/Vol] 13 mmol/L 9 - 17 mmol/L [place], [place] Bun/Cre Ratio NOT REPORTED [place] Calcium [Mass/Vol] 8.6 mg/dL 8.6 - 10. 4 mg/dL [place] Chloride [Moles/Vol] 97 mmol/L Low 98 - 10 7 mmol/L [place] CO2 [Moles/Vol] 25 mmol/L 20 - 31 mmol/L [place] Creatinine [Mass/Vol] 0.42 mg/dL Low 0.5 - 0.9 mg/dL [place] GFR >60 >60 mL/min [place] GFR Non- >60 >60 mL/min [place] GFR/1.73 sq M predicted among non-blacks MDRD (S/P/Bld) [Vol rate/Area] [place], [place] Comment on above: Average GFR for 70 o r more years old: 75 mL/min/1.73sq m Chronic Kidney Disease: <60 mL/min/1.73sq m Kidney failure: <15 mL/min/1.73sq m eGFR calculated using average adult body mass. Additional eGFR calculator available at: http://www.[employer]/multiple_crcl_2012.htm GFR/1.73 sq M predicted among non-blacks MDRD (S/P/Bld) [Vol rate/Area] NOT REPORTED [place], [place] Glucose [Mass/Vol] 87 mg/dL 70 - 99 mg/dL [place], [place] Interpretation and review of laboratory results Abnormal [place] Potassium [Moles/Vol] 3.7 mmol/L 3.7 - 5.3 mmol/L [place] Sodium [Moles/Vol] 135 mmol/L 135 - 144 mmol/L [place] Urea nitrogen [Mass/Vol] 14 mg/dL 8 - 23 mg/dL [place] CBC auto differentialon 09-25 Basophils (Bld) [#/Vol] 0.04 10*3/uL [place] Basophils/100 WBC (Bld) 0 % 0 - 2 % [place] Differential Type NOT REPORTED [place] Eosinophils (Bld) [#/Vol] 0.10 10*3/uL [place] Eosinophils/100 WBC (Bld) 1 % 1 - 4 % [place] Erythrocyte distribution width (RBC) [Ratio] 14.6 % High 11.8 - 14.4 % [place] Hematocrit (Bld) [Volume fraction] 40.2 % 36.3 - 47.1 % [place] Hemoglobin (Bld) [Mass/Vol] 12.6 g/dL 11.9 - 15.1 g/dL [place] Immature granulocytes (Bld) [#/Vol] 0.08 10*3/uL [place] Immature granulocytes (Bld) [#/Vol] 1 % High 0 [place] Interpretation and review of laboratory results Abnormal [place] Lymphocytes (Bld) [#/Vol] 3.05 10*3/uL [place] Lymphocytes/100 WBC (Bld) 32 % 24 - 43 % [place] MCH (RBC) [Entitic mass] 29.0 pg 25.2 - 33.5 pg [place] MCHC (RBC) [Mass/Vol] 31.3 g/dL 28.4 - 34.8 g/dL [place] MCV (RBC) [Entitic vol] 92.4 fL 82.6 - 102.9 fL [place] Monocytes (Bld) [#/Vol] 0.76 10*3/uL [place] Monocytes/100 WBC (Bld) 8 % 3 - 12 % [place] Platelet mean volume (Bld) [Entitic vol] 10.6 fL 8.1 - 13.5 fL [place] Platelets (Bld) [#/Vol] 216 10*3/uL [place] Platelets (Bld) [#/Vol] NOT REPORTED [place] RBC (Bld) [#/Vol] 4.35 10*6/uL 3.95 - 5.1 1 m/uL [place] RBC morphology finding Nom (Bld) ANISOCYTOSIS PRESENT [place] Segmented neutrophils/100 WBC (Bld) 58 % 36 - 65 % [place] Segs Absolute 5.61 [place] WBC (Bld) [#/Vol] 9.6 10*3/uL [place] WBC (Bld) [#/Vol] 0.0 10*3/uL 0.0 per 10 0 WBC [place] WBC Morphology NOT REPORTED [place] CBC with Diffon 10-16-2019 Abs. Basophil 0.04 k/uL Normal 0.00-0.20 [facility] Comment on above: Performed By: #### C DP, CP, LIP, TROPI, LIPRF, GLYHGB #### [facility] [place], [place] [id number] Director Inbound Sales: Brandon Anaya MD Abs.Imm.Granulocyte 0.08 k/uL Normal 0.00-0.30 [facility] Comment on above: Performed By: #### C DP, CP, LIP, TROPI, LIPRF, GLYHGB #### [facility] [place], [place] [id number] Director Inbound Sales: Brandon Anaya MD Abs.Neutrophil (Seg) 5.61 k/uL Normal 1.50-8.10 [facility] Comment on above: Performed By: #### C DP, CP, LIP, TROPI, LIPRF, GLYHGB #### [address] [address] Director Inbound Sales: Brandon Anaya MD Basophils/100 WBC (Bld) 0 % Normal 0-2 [facility] Comment on above: Performed By: #### C DP, CP, LIP, TROPI, LIPRF, GLYHGB #### [address] [address] Director Inbound Sales: Brandon Anaya MD Eosinophils (Bld) [#/Vol] 0.10 10*3/uL Normal 0.00-0.44 [facility] Comment on above: Performed By: #### C DP, CP, LIP, TROPI, LIPRF, GLYHGB #### [address] [address] Director Inbound Sales: Brandon Anaya MD Eosinophils/100 WBC (Bld) 1 % Normal 1-4 [facility] Comment on above: Performed By: #### C DP, CP, LIP, TROPI, LIPRF, GLYHGB #### [place] [address] Director Inbound Sales: Brandon Anaya MD Erythrocyte distribution width (RBC) [Ratio] 14.6 % High 11.8-14.4 [facility] Comment on above: Performed By: #### C DP, CP, LIP, TROPI, LIPRF, GLYHGB #### [place] [address] Director Inbound Sales: Brandon Anaya MD Hematocrit (Bld) [Volume fraction] 40.2 % Normal 36.3-47.1 [facility] Comment on above: Performed By: #### C DP, CP, LIP, TROPI, LIPRF, GLYHGB #### [address] [address] Director Inbound Sales: Brandon Anaya MD Hemoglobin (Bld) [Mass/Vol] 12.6 g/dL Normal 11.9-15.1 [facility] Comment on above: Performed By: #### C DP, CP, LIP, TROPI, LIPRF, GLYHGB #### [address] [address] Director Inbound Sales: Brandon Anaya MD Immature granulocytes (Bld) [#/Vol] 1 % High 0 [facility] Comment on above: Performed By: #### C DP, CP, LIP, TROPI, LIPRF, GLYHGB #### [address] [address] Director Inbound Sales: Brandon Anaya MD Lymphocytes (Bld) [#/Vol] 3.05 10*3/uL Normal 1.10-3.70 [facility] Comment on above: Performed By: #### C DP, CP, LIP, TROPI, LIPRF, GLYHGB #### [place] [address] Director Inbound Sales: Brandon Anaya MD Lymphocytes/100 WBC (Bld) 32 % Normal 24-43 [facility] Comment on above: Performed By: #### C DP, CP, LIP, TROPI, LIPRF, GLYHGB #### [address] [address] Director Inbound Sales: Brandon Anaya MD MCH (RBC) [Entitic mass] 29.0 pg Normal 25.2-33.5 [facility] Comment on above: Performed By: #### C DP, CP, LIP, TROPI, LIPRF, GLYHGB #### [address] [address] Director Inbound Sales: Brandon Anaya MD MCHC (RBC) [Mass/Vol] 31.3 g/dL Normal 28.4-34.8 [facility] Comment on above: Performed By: #### C DP, CP, LIP, TROPI, LIPRF, GLYHGB #### [address] [address] Director Inbound Sales: Brandon Anaya MD MCV (RBC) [Entitic vol] 92.4 fL Normal 82.6-102.9 [facility] Comment on above: Performed By: #### C DP, CP, LIP, TROPI, LIPRF, GLYHGB #### [address] [address] Director Inbound Sales: Brandon Anaya MD Monocytes (Bld) [#/Vol] 0.76 10*3/uL Normal 0.10-1.20 [facility] Comment on above: Performed By: #### C DP, CP, LIP, TROPI, LIPRF, GLYHGB #### [address] [address] Director Inbound Sales: Brandon Anaya MD Monocytes/100 WBC (Bld) 8 % Normal 3-12 [facility] Comment on above: Performed By: #### C DP, CP, LIP, TROPI, LIPRF, GLYHGB #### [address] [address] Director Inbound Sales: Brandon Anaya MD Neutrophil (Seg) 58 % Normal 36-65 [facility] Comment on above: Performed By: #### C DP, CP, LIP, TROPI, LIPRF, GLYHGB #### [address] [address] Director Inbound Sales: Brandon Anaya MD NRBC Automated 0.0 per 100 WBC Normal 0.0 [facility] Comment on above: Performed By: #### C DP, CP, LIP, TROPI, LIPRF, GLYHGB #### [address] [address] Director Inbound Sales: Brandon Anaya MD Platelet mean volume (Bld) [Entitic vol] 10.6 fL Normal 8.1-13.5 [facility] Comment on above: Performed By: #### C DP, CP, LIP, TROPI, LIPRF, GLYHGB #### [address] [address] Director Inbound Sales: Brandon Anaya MD Platelets (Bld) [#/Vol] 216 10*3/uL Normal 138-453 [facility] Comment on above: Performed By: #### C DP, CP, LIP, TROPI, LIPRF, GLYHGB #### [address] [address] Director Inbound Sales: Brandon Anaya MD RBC (Bld) [#/Vol] 4.35 10*6/uL Normal 3.95-5.11 [facility] Comment on above: Performed By: #### C DP, CP, LIP, TROPI, LIPRF, GLYHGB #### [address] [address] Director Inbound Sales: Brandon Anaya MD RBC morphology finding Nom (Bld) ANISOCYTOSIS PRESENT Normal [facility] Comment on above: Performed By: #### C DP, CP, LIP, TROPI, LIPRF, GLYHGB #### [address] [address] Director Inbound Sales: Brandon Anaya MD WBC (Bld) [#/Vol] 9.6 10*3/uL Normal 3.5-11.3 [facility] Comment on above: Performed By: #### C DP, CP, LIP, TROPI, LIPRF, GLYHGB #### [address] [address] Director Inbound Sales: Brandon Anaya MD Auto Diff Performed NOT REPORTED Normal [facility] Comment on above: Performed By: #### C DP, CP, LIP, TROPI, LIPRF, GLYHGB #### [address] [address] Director Inbound Sales: Brandon Anaya MD Platelets (Bld) [#/Vol] NOT REPORTED Normal [facility] Comment on above: Performed By: #### C DP, CP, LIP, TROPI, LIPRF, GLYHGB #### [facility] [address] [place] [address] Director Inbound Sales: Brandon Anaya MD WBC Morphology NOT REPORTED Normal [facility] Comment on above: Performed By: #### C DP, CP, LIP, TROPI, LIPRF, GLYHGB #### [facility] [address] [place] [address] Director Inbound Sales: Brandon Anaya MD MRI LUMBAR SPINE W [...] Tiffany Lindsay MD 10/15/19 Final result Normal [facility] POC Glucose Fingerstickon Glucose [Mass/Vol] 98 mg/dL 65 - 105 mg/dL [place] Glucose [Mass/Vol] 107 mg/dL High 65 - 105 mg/dL [place] Interpretation and review of laboratory results Abnormal [place] Glucose [Mass/Vol] 81 mg/dL 65 - 105 mg/dL [place] URINALYSIS WITH MICROSCOPICo n 10-16-2019 Amorphous, UA NOT REPORTED None [place] Bacteria, UA MODERATE Abnormal None [place] Bilirubin Urine Negative NEGATIVE [place] Casts UA 0 TO 2 HYALINE Refer ence range defined for non-centrifuged specimen. [place] Color, UA YELLOW YELLOW [place] Crystals, UA NOT REPORTED None /HPF [place] Epithelial Cells UA 0 TO 2 [place] Glucose, Ur Negative NEGATIVE [place] Interpretation and review of laboratory results Abnormal [place] Ketones Ql (U) SMALL Abnormal NEGATIVE [place] Leukocyte esterase Test strip Ql (U) Negative NEGATIVE [place] Mucus, UA NOT REPORTED None [place] Nitrite, Urine Negative NEGATIVE [place] Other Observations UA NOT REPORTED NOT REQ. [place] pH, UA 8.0 [place] Protein (U) [Mass/Vol] Negative NEGATIVE [place] RBC (U) [#/Vol] 2 TO 5 [place] Comment on above: Reference range defi nya for non-centrifuged specimen. Renal Epithelial, UA NOT REPORTED 0 /HPF [place] Specific [place], UA 1.006 [place] Trichomonas, UA NOT REPORTED None [place] Turbidity UA CLOUDY Abnormal CLEAR [place] Urine Hgb Negative NEGATIVE [place] Urobilinogen, Urine Normal Normal [place] WBC, UA 0 TO 2 [place] Yeast, UA NOT REPORTED None [place] Urinalysis w/ Microon 2019 ----- Normal [facility] Comment on above: Performed By: #### C DP, CP, LIP, TROPI, LIPRF, GLYHGB #### [facility] [place] [address] Director Inbound Sales: Brandon Anaya MD Acetoacetic Acid,Ur SMALL Abnormal NEG [facility] Comment on above: Performed By: #### C DP, CP, LIP, TROPI, LIPRF, GLYHGB #### [facility] [place] [address] Director Inbound Sales: Brandon Anaya MD Bacteria LM.HPF (Urine sed) [#/Area] MODERATE Abnormal NONE [facility] Comment on above: Performed By: #### C DP, CP, LIP, TROPI, LIPRF, GLYHGB #### [facility] [address] [place] [address] Director Inbound Sales: Brandon Anaya MD Bilirubin, SemiQt,Ur Negative Normal NEG [facility] Comment on above: Performed By: #### C DP, CP, LIP, TROPI, LIPRF, GLYHGB #### [address] [address] Director Inbound Sales: Brandon Anaya MD Casts LM.LPF (Urine sed) [#/Area] 0 TO 2 HYALINE Normal 0-8 [facility] Comment on above: Result Comment: Refe rence range defined for non-centrifuged specimen. Performed By: #### C DP, CP, LIP, TROPI, LIPRF, GLYHGB #### [address] [address] Director Inbound Sales: Brandon Anaya MD Color (U) YELLOW Normal YEL [facility] Comment on above: Performed By: #### C DP, CP, LIP, TROPI, LIPRF, GLYHGB #### [address] [address] Director Inbound Sales: Brandon Anaya MD Epithelial cells LM.HPF (Urine sed) [#/Area] 0 TO 2 Normal 0-5 [facility] Comment on above: Performed By: #### C DP, CP, LIP, TROPI, LIPRF, GLYHGB #### [address] [address] Director Inbound Sales: Brandon Anaya MD Glucose Ql (U) Negative Normal NEG [facility] Comment on above: Performed By: #### C DP, CP, LIP, TROPI, LIPRF, GLYHGB #### [address] [address] Director Inbound Sales: Brandon Anaya MD Hemoglobin, Ur Negative Normal NEG [facility] Comment on above: Performed By: #### C DP, CP, LIP, TROPI, LIPRF, GLYHGB #### [address] [address] Director Inbound Sales: Brandon Anaya MD Leukocyte esterase Test strip Ql (U) Negative Normal NEG [facility] Comment on above: Performed By: #### C DP, CP, LIP, TROPI, LIPRF, GLYHGB #### [address] [address] Director Inbound Sales: Brandon Anaya MD Nitrite,Ur Negative Normal NEG [facility] Comment on above: Performed By: #### C DP, CP, LIP, TROPI, LIPRF, GLYHGB #### [place] [address] Director Inbound Sales: Brandon Anaya MD pH (U) 8.0 [pH] Normal 5.0-8.0 [facility] Comment on above: Performed By: #### C DP, CP, LIP, TROPI, LIPRF, GLYHGB #### [place] [address] Director Inbound Sales: Brandon Anaya MD Protein Ql (U) Negative Normal NEG [facility] Comment on above: Performed By: #### C DP, CP, LIP, TROPI, LIPRF, GLYHGB #### [facility] [place] [address] Director Inbound Sales: Brandon Anaya MD RBC (U) [#/Vol] 2 TO 5 Normal 0-4 [facility] Comment on above: Result Comment: Refe rence range defined for non-centrifuged specimen. Performed By: #### C DP, CP, LIP, TROPI, LIPRF, GLYHGB #### [facility] [place] [address] Director Inbound Sales: Brandon Anaya MD Specific gravity (U) [Rel density] 1.006 Normal 1.005-1.030 [facility] Comment on above: Performed By: #### C DP, CP, LIP, TROPI, LIPRF, GLYHGB #### [address] [address] Director Inbound Sales: Brandon Anaya MD Turbidity CLOUDY Abnormal CLEAR [facility] Comment on above: Performed By: #### C DP, CP, LIP, TROPI, LIPRF, GLYHGB #### [facility] [address] [place] [address] Director Inbound Sales: Brandon Anaya MD Urobilinogen,Ur Normal Normal NORM [facility] Comment on above: Performed By: #### C DP, CP, LIP, TROPI, LIPRF, GLYHGB #### [address] [address] Director Inbound Sales: Brandon Anaya MD WBC (U) [#/Vol] 0 TO 2 Normal 0-5 [facility] Comment on above: Performed By: #### C DP, CP, LIP, TROPI, LIPRF, GLYHGB #### [address] [address] Director Inbound Sales: Brandon Anaya MD Amorphous sediment LM Ql (Urine sed) NOT REPORTED Normal NONE [facility] Comment on above: Performed By: #### C DP, CP, LIP, TROPI, LIPRF, GLYHGB #### [address] [address] Director Inbound Sales: rBandon Anaya MD Crystals LM Nom (Urine sed) NOT REPORTED Normal NONE [facility] Comment on above: Performed By: #### C DP, CP, LIP, TROPI, LIPRF, GLYHGB #### [address] [address] Director Inbound Sales: Brandon Anaya MD Epithelial, Renal NOT REPORTED Normal 0 [facility] Comment on above: Performed By: #### C DP, CP, LIP, TROPI, LIPRF, GLYHGB #### [address] [address] Director Inbound Sales: Brandon nAaya MD Mucus Strands NOT REPORTED Normal [facility] Comment on above: Performed By: #### C DP, CP, LIP, TROPI, LIPRF, GLYHGB #### [address] [address] Director Inbound Sales: Brandon Anaya MD Other Observations NOT REPORTED Normal NREQ [facility] Comment on above: Performed By: #### C DP, CP, LIP, TROPI, LIPRF, GLYHGB #### [address] [address] Director Inbound Sales: Brandon Anaya MD Trichomonas NOT REPORTED Normal [facility] Comment on above: Performed By: #### C DP, CP, LIP, TROPI, LIPRF, GLYHGB #### [address] [address] Director Inbound Sales: Brandon Anaya MD Yeast LM Ql (Urine sed) NOT REPORTED Normal [facility] Comment on above: Performed By: #### C DP, CP, LIP, TROPI, LIPRF, GLYHGB #### [address] [address] Director Inbound Sales: Brandon Anaya MD Basic Metab w/rfx MGon 10-14 (cont.) Normal [facility] Comment on above: Result Comment: Aver age GFR for 70 or more years old: 75 mL/min/1.73sq m Chronic Kidney Disease: <60 mL/min/1.73sq m Kidney failure: <15 mL/min/1.73sq m eGFR calculated using average adult body mass. Additional eGFR calculator available at: http://www.[employer]/multiple_crcl_2012.htm Performed By: #### C DP, CP, LIP, TROPI, LIPRF, GLYHGB #### [facility] [address] [place] [address] Director Inbound Sales: Brandon Anaya MD Anion gap [Moles/Vol] 14 mmol/L Normal 9-17 [facility] Comment on above: Performed By: #### C DP, CP, LIP, TROPI, LIPRF, GLYHGB #### [facility] [address] [place] [address] Director Inbound Sales: Brandon Anaya MD Calcium [Mass/Vol] 8.8 mg/dL Normal 8.6-10.4 [facility] Comment on above: Performed By: #### C DP, CP, LIP, TROPI, LIPRF, GLYHGB #### [facility] [place] [address] Director Inbound Sales: Brandon Anaya MD Chloride [Moles/Vol] 94 mmol/L Low 98-107 [facility] Comment on above: Performed By: #### C DP, CP, LIP, TROPI, LIPRF, GLYHGB #### [facility] [address] [place] [address] Director Inbound Sales: Brandon Anaya MD CO2 [Moles/Vol] 23 mmol/L Normal 20-31 [facility] Comment on above: Performed By: #### C DP, CP, LIP, TROPI, LIPRF, GLYHGB #### [facility] [address] [place] [address] Director Inbound Sales: Brandon Anaya MD Creatinine [Mass/Vol] 0.36 mg/dL Low 0.50-0.90 [facility] Comment on above: Performed By: #### C DP, CP, LIP, TROPI, LIPRF, GLYHGB #### [facility] [address] [place] [address] Director Inbound Sales: Brandon Anaya MD GFR, Amer >60 Normal >60 [facility] Comment on above: Performed By: #### C DP, CP, LIP, TROPI, LIPRF, GLYHGB #### [address] [address] Director Inbound Sales: Brandon Anaya MD GFR,non Amer >60 Normal >60 [facility] Comment on above: Performed By: #### C DP, CP, LIP, TROPI, LIPRF, GLYHGB #### [address] [address] Director Inbound Sales: Brandon Anaya MD Glucose [Mass/Vol] 89 mg/dL Normal 70-99 [facility] Comment on above: Performed By: #### C DP, CP, LIP, TROPI, LIPRF, GLYHGB #### [address] [address] Director Inbound Sales: Brandon Anaya MD Potassium [Moles/Vol] 3.7 mmol/L Normal 3.7-5.3 [facility] Comment on above: Performed By: #### C DP, CP, LIP, TROPI, LIPRF, GLYHGB #### [address] [address] Director Inbound Sales: Brandon Anaya MD Sodium [Moles/Vol] 131 mmol/L Low 135-144 [facility] Comment on above: Performed By: #### C DP, CP, LIP, TROPI, LIPRF, GLYHGB #### [address] [address] Director Inbound Sales: Brandon Anaya MD Urea nitrogen [Mass/Vol] 16 mg/dL Normal 8-23 [facility] Comment on above: Performed By: #### C DP, CP, LIP, TROPI, LIPRF, GLYHGB #### [address] [address] Director Inbound Sales: Brandon Anaya MD BUN/CRE Ratio NOT REPORTED Normal 9-20 [facility] Comment on above: Performed By: #### C DP, CP, LIP, TROPI, LIPRF, GLYHGB #### [facility] [address] [place], [place] [id number] Director Inbound Sales: Brandon Anaya MD Staging: NOT REPORTED Normal [facility] Comment on above: Performed By: #### C DP, CP, LIP, TROPI, LIPRF, GLYHGB #### [facility] [address] [place], [place] [phone] Director Inbound Sales: Brandon Anaya MD Basic Metabolic Panel w/ Ref kervin to [facility] 10-15-2019 Anion gap [Moles/Vol] 14 mmol/L 9 - 17 mmol/L [place] Bun/Cre Ratio NOT REPORTED [place] Calcium [Mass/Vol] 8.8 mg/dL 8.6 - 10. 4 mg/dL [place] Chloride [Moles/Vol] 94 mmol/L Low 98 - 10 7 mmol/L [place] CO2 [Moles/Vol] 23 mmol/L 20 - 31 mmol/L [place] Creatinine [Mass/Vol] 0.36 mg/dL Low 0.5 - 0.9 mg/dL [place] GFR >60 >60 mL/min [place] GFR Non- >60 >60 mL/min [place] GFR/1.73 sq M predicted among non-blacks MDRD (S/P/Bld) [Vol rate/Area] [place] Comment on above: Average GFR for 70 o r more years old: 75 mL/min/1.73sq m Chronic Kidney Disease: <60 mL/min/1.73sq m Kidney failure: <15 mL/min/1.73sq m eGFR calculated using average adult body mass. Additional eGFR calculator available at: http://www.[employer]/multiple_crcl_2012.htm GFR/1.73 sq M predicted among non-blacks MDRD (S/P/Bld) [Vol rate/Area] NOT REPORTED [place] Glucose [Mass/Vol] 89 mg/dL 70 - 99 mg/dL [place] Interpretation and review of laboratory results Abnormal [place] Potassium [Moles/Vol] 3.7 mmol/L 3.7 - 5.3 mmol/L [place] Sodium [Moles/Vol] 131 mmol/L Low 135 - 144 mmol/L [place] Urea nitrogen [Mass/Vol] 16 mg/dL 8 - 23 mg/dL [place] CBC auto differentialon 09-25 Basophils (Bld) [#/Vol] 0.06 10*3/uL [place] Basophils/100 WBC (Bld) 1 % 0 - 2 % [place] Differential Type NOT REPORTED [place] Eosinophils (Bld) [#/Vol] 0.13 10*3/uL [place] Eosinophils/100 WBC (Bld) 1 % 1 - 4 % [place] Erythrocyte distribution width (RBC) [Ratio] 14.6 % High 11.8 - 14.4 % [place] Hematocrit (Bld) [Volume fraction] 41.6 % 36.3 - 47.1 % [place] Hemoglobin (Bld) [Mass/Vol] 13.4 g/dL 11.9 - 15.1 g/dL [place] Immature granulocytes (Bld) [#/Vol] 1 % High 0 [place] Immature granulocytes (Bld) [#/Vol] 0.11 10*3/uL [place] Interpretation and review of laboratory results Abnormal [place] Lymphocytes (Bld) [#/Vol] 2.56 10*3/uL [place] Lymphocytes/100 WBC (Bld) 24 % 24 - 43 % [place] MCH (RBC) [Entitic mass] 29.3 pg 25.2 - 33.5 pg [place] MCHC (RBC) [Mass/Vol] 32.2 g/dL 28.4 - 34.8 g/dL [place] MCV (RBC) [Entitic vol] 90.8 fL 82.6 - 102.9 fL [place] Monocytes (Bld) [#/Vol] 0.78 10*3/uL [place] Monocytes/100 WBC (Bld) 7 % 3 - 12 % [place] Platelet mean volume (Bld) [Entitic vol] 10.6 fL 8.1 - 13.5 fL [place] Platelets (Bld) [#/Vol] NOT REPORTED [place] Platelets (Bld) [#/Vol] 241 10*3/uL [place] RBC (Bld) [#/Vol] 4.58 10*6/uL 3.95 - 5.1 1 m/uL [place] RBC morphology finding Nom (Bld) ANISOCYTOSIS PRESENT [place] Segmented neutrophils/100 WBC (Bld) 66 % High 36 - 65 % [place] Segs Absolute 7.00 [place] WBC (Bld) [#/Vol] 10.6 10*3/uL [place] WBC (Bld) [#/Vol] 0.0 10*3/uL 0.0 per 10 0 WBC [place] WBC Morphology NOT REPORTED [place] CBC with Diffon 10-15-2019 Abs. Basophil 0.06 k/uL Normal 0.00-0.20 [facility] Comment on above: Performed By: #### C DP, CP, LIP, TROPI, LIPRF, GLYHGB #### [facility] [address] [place], [place] [phone] Director Inbound Sales: Brandon Anaya MD Abs.Imm.Granulocyte 0.11 k/uL Normal 0.00-0.30 [facility] Comment on above: Performed By: #### C DP, CP, LIP, TROPI, LIPRF, GLYHGB #### [facility] [address] [place] [address] Director Inbound Sales: Brandon Anaya MD Abs.Neutrophil (Seg) 7.00 k/uL Normal 1.50-8.10 [facility] Comment on above: Performed By: #### C DP, CP, LIP, TROPI, LIPRF, GLYHGB #### [facility] [address] [place] [address] Director Inbound Sales: Brandon Anaya MD Basophils/100 WBC (Bld) 1 % Normal 0-2 [facility] Comment on above: Performed By: #### C DP, CP, LIP, TROPI, LIPRF, GLYHGB #### [address] [address] Director Inbound Sales: Brandon Anaya MD Eosinophils (Bld) [#/Vol] 0.13 10*3/uL Normal 0.00-0.44 [facility] Comment on above: Performed By: #### C DP, CP, LIP, TROPI, LIPRF, GLYHGB #### [place] [address] Director Inbound Sales: Brandon Anaya MD Eosinophils/100 WBC (Bld) 1 % Normal 1-4 [facility] Comment on above: Performed By: #### C DP, CP, LIP, TROPI, LIPRF, GLYHGB #### [place] [address] Director Inbound Sales: Brandon Anaya MD Erythrocyte distribution width (RBC) [Ratio] 14.6 % High 11.8-14.4 [facility] Comment on above: Performed By: #### C DP, CP, LIP, TROPI, LIPRF, GLYHGB #### [facility] [place] [address] Director Inbound Sales: Brandon Anaya MD Hematocrit (Bld) [Volume fraction] 41.6 % Normal 36.3-47.1 [facility] Comment on above: Performed By: #### C DP, CP, LIP, TROPI, LIPRF, GLYHGB #### [facility] [address] [place] [address] Director Inbound Sales: Brandon Anaya MD Hemoglobin (Bld) [Mass/Vol] 13.4 g/dL Normal 11.9-15.1 [facility] Comment on above: Performed By: #### C DP, CP, LIP, TROPI, LIPRF, GLYHGB #### [address] [address] Director Inbound Sales: Brandon Anaya MD Immature granulocytes (Bld) [#/Vol] 1 % High 0 [facility] Comment on above: Performed By: #### C DP, CP, LIP, TROPI, LIPRF, GLYHGB #### [address] [address] Director Inbound Sales: Brandon Anaya MD Lymphocytes (Bld) [#/Vol] 2.56 10*3/uL Normal 1.10-3.70 [facility] Comment on above: Performed By: #### C DP, CP, LIP, TROPI, LIPRF, GLYHGB #### [address] [address] Director Inbound Sales: Brandon Anaya MD Lymphocytes/100 WBC (Bld) 24 % Normal 24-43 [facility] Comment on above: Performed By: #### C DP, CP, LIP, TROPI, LIPRF, GLYHGB #### [address] [address] Director Inbound Sales: Brandon Anaya MD MCH (RBC) [Entitic mass] 29.3 pg Normal 25.2-33.5 [facility] Comment on above: Performed By: #### C DP, CP, LIP, TROPI, LIPRF, GLYHGB #### [address] [address] Director Inbound Sales: Brandon Anaya MD MCHC (RBC) [Mass/Vol] 32.2 g/dL Normal 28.4-34.8 [facility] Comment on above: Performed By: #### C DP, CP, LIP, TROPI, LIPRF, GLYHGB #### [address] [address] Director Inbound Sales: Brandon Anaya MD MCV (RBC) [Entitic vol] 90.8 fL Normal 82.6-102.9 [facility] Comment on above: Performed By: #### C DP, CP, LIP, TROPI, LIPRF, GLYHGB #### [address] [address] Director Inbound Sales: Brandon Anaya MD Monocytes (Bld) [#/Vol] 0.78 10*3/uL Normal 0.10-1.20 [facility] Comment on above: Performed By: #### C DP, CP, LIP, TROPI, LIPRF, GLYHGB #### [place] [address] Director Inbound Sales: Brandon Anaya MD Monocytes/100 WBC (Bld) 7 % Normal 3-12 [facility] Comment on above: Performed By: #### C DP, CP, LIP, TROPI, LIPRF, GLYHGB #### [address] [address] Director Inbound Sales: Brandon Anaya MD Neutrophil (Seg) 66 % High 36-65 [facility] Comment on above: Performed By: #### C DP, CP, LIP, TROPI, LIPRF, GLYHGB #### [address] [address] Director Inbound Sales: Brandon Anaya MD NRBC Automated 0.0 per 100 WBC Normal 0.0 [facility] Comment on above: Performed By: #### C DP, CP, LIP, TROPI, LIPRF, GLYHGB #### [address] [address] Director Inbound Sales: Brandon Anaya MD Platelet mean volume (Bld) [Entitic vol] 10.6 fL Normal 8.1-13.5 [facility] Comment on above: Performed By: #### C DP, CP, LIP, TROPI, LIPRF, GLYHGB #### [address] [address] Director Inbound Sales: Brandon Anaya MD Platelets (Bld) [#/Vol] 241 10*3/uL Normal 138-453 [facility] Comment on above: Performed By: #### C DP, CP, LIP, TROPI, LIPRF, GLYHGB #### [address] [address] Director Inbound Sales: Brandon Anaya MD RBC (Bld) [#/Vol] 4.58 10*6/uL Normal 3.95-5.11 [facility] Comment on above: Performed By: #### C DP, CP, LIP, TROPI, LIPRF, GLYHGB #### [address] [address] Director Inbound Sales: Brandon Anaya MD RBC morphology finding Nom (Bld) ANISOCYTOSIS PRESENT Normal [facility] Comment on above: Performed By: #### C DP, CP, LIP, TROPI, LIPRF, GLYHGB #### [address] [address] Director Inbound Sales: Brandon Anaya MD WBC (Bld) [#/Vol] 10.6 10*3/uL Normal 3.5-11.3 [facility] Comment on above: Performed By: #### C DP, CP, LIP, TROPI, LIPRF, GLYHGB #### [address] [address] Director Inbound Sales: Brandon Anaya MD Auto Diff Performed NOT REPORTED Normal [facility] Comment on above: Performed By: #### C DP, CP, LIP, TROPI, LIPRF, GLYHGB #### [facility] [address] [place] [address] Director Inbound Sales: Brandon Anaya MD Platelets (Bld) [#/Vol] NOT REPORTED Normal [facility] Comment on above: Performed By: #### C DP, CP, LIP, TROPI, LIPRF, GLYHGB #### [facility] [address] [place] [address] Director Inbound Sales: Brandon Anaya MD WBC Morphology NOT REPORTED Normal [facility] Comment on above: Performed By: #### C DP, CP, LIP, TROPI, LIPRF, GLYHGB #### [facility] [address] [place] [address] Director Inbound Sales: Brandon Anaya MD MRI LUMBAR SPINE W [...] 2013; 10(10):789-794; J Vasc Surg. 2018; 67:2-77 [place], [place] EXAMINATION: MRI OF THE LUMBAR SPINE [...] are intact. The neural foramina are intact. [facility]- [place], [place] Prieto, Mhpn Incoming Radiant Results From [facility] - 10/15/2019 11:11 PM EDT EXAMINATION: MRI [...] 2013; 10(10):789-794; J Vasc Surg. 2018; 67:2-77 [place] MYCOPLASMA PNEUMONIAE ANTIBO DY, IGMon 10-15-2019 Mycoplasma pneumo IgM 0.12 <0.91 [place], [place] Comment on above: Reference Range: <=0.90 Negative 0.91-1.09 Equivocal >=1.10 Positive Mycoplasma Ab, IgMon 020 Mycoplasma Ab, IgM 0.12 Normal <0.91 [facility] Comment on above: Result Comment: Reference Range: <=0.90 Negative 0.91-1.09 Equivocal >=1.10 Positive Performed By: #### C DP, CP, LIP, TROPI, LIPRF, GLYHGB #### [facility] [address] [place] [address] Director Inbound Sales: Brandon Anaya MD POC Glucose Fingerstickon Glucose [Mass/Vol] 100 mg/dL 65 - 105 mg/dL [place] Glucose [Mass/Vol] 99 mg/dL 65 - 105 mg/dL [place] Glucose [Mass/Vol] 91 mg/dL 65 - 105 mg/dL [place] Glucose [Mass/Vol] 95 mg/dL 65 - 105 mg/dL [place] RENINon 10-15-2019 Renin Activity 0.1 ng/mL/hr [place] Comment on above: (NOTE) INTERPRETIVE INFORMATION: Renin Activity Adult, Normal sodium diet: Supine ................. 0.2-1.6 ng/mL/hr Upright ................ 0.5-4.0 ng/mL/hr Children, Normal sodium diet, Supine: [place] (1-7 days) ..... 2.0-35.0 ng/mL/hr Cord blood [...] angiotensinogen is decreased. See Compliance Statement D: [email or web address] Performed By: [facility] [address] [place] [address] Software Lead: Nik Rosas MD, MS Renin Comment NOT REPORTED [facility], [place] Renin Activityon 10-15-2019 Renin Activity 0.1 ng/mL/hr Normal [facility] Comment on above: Result Comment: (NOT E) [...] angiotensinogen is decreased. See Compliance Statement D: [email or web address] Performed By: [facility] [address] [place] [address] Software Lead: Nik Rosas MD, MS Performed By: #### C DP, CP, LIP, TROPI, LIPRF, GLYHGB #### [place] [id number] [place], [place] [id number] Director Inbound Sales: Brandon Anaya MD ALDOSTERONEon 10-14-2019 Aldosterone 5 ng/dL [place], [place] Comment on above: (NOTE) INTERPRETIVE INFORMATION: [...] reference intervals for this test in the [facility] Test Directory ([employer]). Performed By: [facility] [address] [place] [address] Software Lead: Nik Rosas MD, MS Aldosterone Comment NOT REPORTED [facility]2019 Aldosterone 5.0 ng/dL Normal [facility] Comment on above: Result Comment: (NOT E) [...] reference intervals for this test in the [facility] Test Directory ([employer]). Performed By: [facility] [address] [place] [address] Software Lead: Nik Rosas MD, MS Performed By: #### C DP, CP, LIP, TROPI, LIPRF, GLYHGB #### [place] [address] Director Inbound Sales: Brandon Anaya MD Basic Metab w/rfx MGon 10-13 (cont.) Normal [facility] Comment on above: Result Comment: Aver age GFR for 70 or more years old: 75 mL/min/1.73sq m Chronic Kidney Disease: <60 mL/min/1.73sq m Kidney failure: <15 mL/min/1.73sq m eGFR calculated using average adult body mass. Additional eGFR calculator available at: http://www.[employer]/multiple_crcl_2012.htm Performed By: #### C DP, CP, LIP, TROPI, LIPRF, GLYHGB #### [place] [id number] Director Inbound Sales: Brandon Anaya MD Anion gap [Moles/Vol] 13 mmol/L Normal 9-17 [facility] Comment on above: Performed By: #### C DP, CP, LIP, TROPI, LIPRF, GLYHGB #### [place] [id number] Director Inbound Sales: Brandon Anaya MD Calcium [Mass/Vol] 8.5 mg/dL Low 8.6-10.4 [facility] Comment on above: Performed By: #### C DP, CP, LIP, TROPI, LIPRF, GLYHGB #### [facility] [address] [place] [address] Director Inbound Sales: Brandon Anaya MD Chloride [Moles/Vol] 91 mmol/L Low 98-107 [facility] Comment on above: Performed By: #### C DP, CP, LIP, TROPI, LIPRF, GLYHGB #### [facility] [address] [place] [address] Director Inbound Sales: Brandon Anaya MD CO2 [Moles/Vol] 26 mmol/L Normal 20-31 [facility] Comment on above: Performed By: #### C DP, CP, LIP, TROPI, LIPRF, GLYHGB #### [address] [address] Director Inbound Sales: Brandon Anaya MD Creatinine [Mass/Vol] 0.48 mg/dL Low 0.50-0.90 [facility] Comment on above: Performed By: #### C DP, CP, LIP, TROPI, LIPRF, GLYHGB #### [address] [address] Director Inbound Sales: Brandon Anaya MD GFR, Amer >60 Normal >60 [facility] Comment on above: Performed By: #### C DP, CP, LIP, TROPI, LIPRF, GLYHGB #### [address] [address] Director Inbound Sales: Brandon Anaya MD GFR,non Amer >60 Normal >60 [facility] Comment on above: Performed By: #### C DP, CP, LIP, TROPI, LIPRF, GLYHGB #### [facility] [address] [place] [address] Director Inbound Sales: Brandon Anaya MD Glucose [Mass/Vol] 104 mg/dL High 70-99 [facility] Comment on above: Performed By: #### C DP, CP, LIP, TROPI, LIPRF, GLYHGB #### [facility] [address] [place] [address] Director Inbound Sales: Brandon Anaya MD Potassium [Moles/Vol] 3.7 mmol/L Normal 3.7-5.3 [facility] Comment on above: Performed By: #### C DP, CP, LIP, TROPI, LIPRF, GLYHGB #### [address] [address] Director Inbound Sales: Brandon Anaya MD Sodium [Moles/Vol] 130 mmol/L Low 135-144 [facility] Comment on above: Performed By: #### C DP, CP, LIP, TROPI, LIPRF, GLYHGB #### [address] [address] Director Inbound Sales: Brandon Anaya MD Urea nitrogen [Mass/Vol] 19 mg/dL Normal 8-23 [facility] Comment on above: Performed By: #### C DP, CP, LIP, TROPI, LIPRF, GLYHGB #### [address] [address] Director Inbound Sales: Brandon Anaya MD BUN/CRE Ratio NOT REPORTED Normal - [facility] Comment on above: Performed By: #### C DP, CP, LIP, TROPI, LIPRF, GLYHGB #### [facility] [address] [place] [address] Director Inbound Sales: Brandon Anaya MD Staging: NOT REPORTED Normal [facility] Comment on above: Performed By: #### C DP, CP, LIP, TROPI, LIPRF, GLYHGB #### [facility] [address] [place] [address] Director Inbound Sales: Brandon Anaya MD Basic Metabolic Panel w/ Ref kervin to MGon 10-14-2019 Anion gap [Moles/Vol] 13 mmol/L 9 - 17 mmol/L [place] Bun/Cre Ratio NOT REPORTED [place] Calcium [Mass/Vol] 8.5 mg/dL Low 8.6 - 10. 4 mg/dL [place] Chloride [Moles/Vol] 91 mmol/L Low 98 - 10 7 mmol/L [place] CO2 [Moles/Vol] 26 mmol/L 20 - 31 mmol/L [place] Creatinine [Mass/Vol] 0.48 mg/dL Low 0.5 - 0.9 mg/dL [place] GFR >60 >60 mL/min [place] GFR Non- >60 >60 mL/min [place] GFR/1.73 sq M predicted among non-blacks MDRD (S/P/Bld) [Vol rate/Area] [place] Comment on above: Average GFR for 70 o r more years old: 75 mL/min/1.73sq m Chronic Kidney Disease: <60 mL/min/1.73sq m Kidney failure: <15 mL/min/1.73sq m eGFR calculated using average adult body mass. Additional eGFR calculator available at: http://www.[employer]/multiple_crcl_2012.htm GFR/1.73 sq M predicted among non-blacks MDRD (S/P/Bld) [Vol rate/Area] NOT REPORTED [place], [place] Glucose [Mass/Vol] 104 mg/dL High 70 - 99 mg/dL [place] Interpretation and review of laboratory results Abnormal [place] Potassium [Moles/Vol] 3.7 mmol/L 3.7 - 5.3 mmol/L [place] Sodium [Moles/Vol] 130 mmol/L Low 135 - 144 mmol/L [place] Urea nitrogen [Mass/Vol] 19 mg/dL 8 - 23 mg/dL [place] CBC auto differentialon 09-25 Atypical Lymphocytes 3 % [place] Atypical Lymphocytes Absolute 0.30 k/uL [place] Basophils (Bld) [#/Vol] 0.00 10*3/uL [place] Basophils/100 WBC (Bld) 0 % 0 - 2 % [place] Differential Type NOT REPORTED [place] Eosinophils (Bld) [#/Vol] 0.10 10*3/uL [place] Eosinophils/100 WBC (Bld) 1 % 1 - 4 % [place] Erythrocyte distribution width (RBC) [Ratio] 14.7 % High 11.8 - 14.4 % [place] Hematocrit (Bld) [Volume fraction] 39.5 % 36.3 - 47.1 % [place] Hemoglobin (Bld) [Mass/Vol] 12.9 g/dL 11.9 - 15.1 g/dL [place] Immature granulocytes (Bld) [#/Vol] 0.10 10*3/uL [place] Immature granulocytes (Bld) [#/Vol] 1 % High 0 [place] Interpretation and review of laboratory results Abnormal [place] Lymphocytes (Bld) [#/Vol] 2.80 10*3/uL [place] Lymphocytes/100 WBC (Bld) 28 % 24 - 44 % [place] MCH (RBC) [Entitic mass] 29.5 pg 25.2 - 33.5 pg [place] MCHC (RBC) [Mass/Vol] 32.7 g/dL 28.4 - 34.8 g/dL [place] MCV (RBC) [Entitic vol] 90.2 fL 82.6 - 102.9 fL [place] Monocytes (Bld) [#/Vol] 0.50 10*3/uL [place] Monocytes/100 WBC (Bld) 5 % 1 - 7 % [place] Morphology Alfredo (Bld) [Interp] ANISOCYTOSIS PRESENT [place] Platelet mean volume (Bld) [Entitic vol] 10.1 fL 8.1 - 13.5 fL [place] Platelets (Bld) [#/Vol] 190 10*3/uL [place] Platelets (Bld) [#/Vol] NOT REPORTED [place] RBC (Bld) [#/Vol] 4.38 10*6/uL 3.95 - 5.1 1 m/uL [place] RBC morphology finding Nom (Bld) NOT REPORTED [place] Segmented neutrophils/100 WBC (Bld) 62 % 36 - 66 % [place] Segs Absolute 6.20 [place] WBC (Bld) [#/Vol] 10.0 10*3/uL [place] WBC (Bld) [#/Vol] 0.0 10*3/uL 0.0 per 10 0 WBC [place] WBC Morphology NOT REPORTED [place] CBC with Diffon 10-14-2019 Abs. Atypical Lymphs 0.30 k/uL Normal [facility] Comment on above: Performed By: #### C DP, CP, LIP, TROPI, LIPRF, GLYHGB #### [facility] [place], [place] [id number] Director Inbound Sales: Brandon Anaya MD Abs. Basophil 0.00 k/uL Normal 0.0-0.2 [facility] Comment on above: Performed By: #### C DP, CP, LIP, TROPI, LIPRF, GLYHGB #### [facility] [address] [place] [id number] Director Inbound Sales: Brandon Anaya MD Abs.Imm.Granulocyte 0.10 k/uL Normal 0.00-0.30 [facility] Comment on above: Performed By: #### C DP, CP, LIP, TROPI, LIPRF, GLYHGB #### [facility] [address] [place] [address] [id number] Director Inbound Sales: Brandon Anaya MD Abs.Neutrophil (Seg) 6.20 k/uL Normal 1.8-7.7 [facility] Comment on above: Performed By: #### C DP, CP, LIP, TROPI, LIPRF, GLYHGB #### [address] [address] Director Inbound Sales: Brandon Anaya MD Atypical Lymphs 3 % Normal [facility] Comment on above: Performed By: #### C DP, CP, LIP, TROPI, LIPRF, GLYHGB #### [place] [address] Director Inbound Sales: Brandon Anaya MD Basophils/100 WBC (Bld) 0 % Normal 0-2 [facility] Comment on above: Performed By: #### C DP, CP, LIP, TROPI, LIPRF, GLYHGB #### [place] [address] Director Inbound Sales: Brandon Anaya MD Eosinophils (Bld) [#/Vol] 0.10 10*3/uL Normal 0.0-0.4 [facility] Comment on above: Performed By: #### C DP, CP, LIP, TROPI, LIPRF, GLYHGB #### [place] [address] Director Inbound Sales: Brandon Anaya MD Eosinophils/100 WBC (Bld) 1 % Normal 1-4 [facility] Comment on above: Performed By: #### C DP, CP, LIP, TROPI, LIPRF, GLYHGB #### [place] [address] Director Inbound Sales: Brandon Anaya MD Immature granulocytes (Bld) [#/Vol] 1 % High 0 [facility] Comment on above: Performed By: #### C DP, CP, LIP, TROPI, LIPRF, GLYHGB #### [address] [address] Director Inbound Sales: Brandon Anaya MD Lymphocytes (Bld) [#/Vol] 2.80 10*3/uL Normal 1.0-4.8 [facility] Comment on above: Performed By: #### C DP, CP, LIP, TROPI, LIPRF, GLYHGB #### [address] [address] Director Inbound Sales: Brandon Anaya MD Lymphocytes/100 WBC (Bld) 28 % Normal 24-44 [facility] Comment on above: Performed By: #### C DP, CP, LIP, TROPI, LIPRF, GLYHGB #### [facility] [address] [place] [address] Director Inbound Sales: Brandon Anaya MD Monocytes (Bld) [#/Vol] 0.50 10*3/uL Normal 0.1-0.8 [facility] Comment on above: Performed By: #### C DP, CP, LIP, TROPI, LIPRF, GLYHGB #### [address] [address] Director Inbound Sales: Brandon Anaya MD Monocytes/100 WBC (Bld) 5 % Normal 1-7 [facility] Comment on above: Performed By: #### C DP, CP, LIP, TROPI, LIPRF, GLYHGB #### [address] [address] Director Inbound Sales: Brandon Anaya MD Morphology Alfredo (Bld) [Interp] ANISOCYTOSIS PRESENT Normal [facility] Comment on above: Performed By: #### C DP, CP, LIP, TROPI, LIPRF, GLYHGB #### [address] [address] Director Inbound Sales: Brandon Anaay MD Neutrophil (Seg) 62 % Normal 36-66 [facility] Comment on above: Performed By: #### C DP, CP, LIP, TROPI, LIPRF, GLYHGB #### [address] [address] Director Inbound Sales: Brandon Anaya MD Erythrocyte distribution width (RBC) [Ratio] 14.7 % High 11.8-14.4 [facility] Comment on above: Performed By: #### C DP, CP, LIP, TROPI, LIPRF, GLYHGB #### [address] [address] Director Inbound Sales: Brandon Anaya MD Hematocrit (Bld) [Volume fraction] 39.5 % Normal 36.3-47.1 [facility] Comment on above: Performed By: #### C DP, CP, LIP, TROPI, LIPRF, GLYHGB #### [place] [address] Director Inbound Sales: Brandon Anaya MD Hemoglobin (Bld) [Mass/Vol] 12.9 g/dL Normal 11.9-15.1 [facility] Comment on above: Performed By: #### C DP, CP, LIP, TROPI, LIPRF, GLYHGB #### [address] [address] Director Inbound Sales: Brandon Anaya MD MCH (RBC) [Entitic mass] 29.5 pg Normal 25.2-33.5 [facility] Comment on above: Performed By: #### C DP, CP, LIP, TROPI, LIPRF, GLYHGB #### [address] [address] Director Inbound Sales: Brandon Anaya MD MCHC (RBC) [Mass/Vol] 32.7 g/dL Normal 28.4-34.8 [facility] Comment on above: Performed By: #### C DP, CP, LIP, TROPI, LIPRF, GLYHGB #### [address] [address] Director Inbound Sales: Brandon Anaya MD MCV (RBC) [Entitic vol] 90.2 fL Normal 82.6-102.9 [facility] Comment on above: Performed By: #### C DP, CP, LIP, TROPI, LIPRF, GLYHGB #### [address] [address] Director Inbound Sales: Brandon Anaya MD NRBC Automated 0.0 per 100 WBC Normal 0.0 [facility] Comment on above: Performed By: #### C DP, CP, LIP, TROPI, LIPRF, GLYHGB #### [address] [address] Director Inbound Sales: Brandon Anaya MD Platelet mean volume (Bld) [Entitic vol] 10.1 fL Normal 8.1-13.5 [facility] Comment on above: Performed By: #### C DP, CP, LIP, TROPI, LIPRF, GLYHGB #### [place] [address] Director Inbound Sales: Brandon Anaya MD Platelets (Bld) [#/Vol] 190 10*3/uL Normal 138-453 [facility] Comment on above: Performed By: #### C DP, CP, LIP, TROPI, LIPRF, GLYHGB #### [address] [address] Director Inbound Sales: Brandon Anaya MD RBC (Bld) [#/Vol] 4.38 10*6/uL Normal 3.95-5.11 [facility] Comment on above: Performed By: #### C DP, CP, LIP, TROPI, LIPRF, GLYHGB #### [address] [address] Director Inbound Sales: Brandon Anaya MD WBC (Bld) [#/Vol] 10.0 10*3/uL Normal 3.5-11.3 [facility] Comment on above: Performed By: #### C DP, CP, LIP, TROPI, LIPRF, GLYHGB #### [address] [place] [address] Director Inbound Sales: Brandon Anaya MD Auto Diff Performed NOT REPORTED Normal [facility] Comment on above: Performed By: #### C DP, CP, LIP, TROPI, LIPRF, GLYHGB #### [facility] [address] [place] [address] Director Inbound Sales: Brandon Anaya MD Platelets (Bld) [#/Vol] NOT REPORTED Normal [facility] Comment on above: Performed By: #### C DP, CP, LIP, TROPI, LIPRF, GLYHGB #### [facility] [address] [place] [address] Director Inbound Sales: Brandon Anaya MD RBC morphology finding Nom (Bld) NOT REPORTED Normal [facility] Comment on above: Performed By: #### C DP, CP, LIP, TROPI, LIPRF, GLYHGB #### [facility] [address] [place] [address] Director Inbound Sales: Brandon Anaya MD WBC Morphology NOT REPORTED Normal [facility] Comment on above: Performed By: #### C DP, CP, LIP, TROPI, LIPRF, GLYHGB #### [facility] [address] [place] [address] Director Inbound Sales: Brandon Anaya MD METANEPHRINES PLASMA FREEon 10-14-2019 Metaneph/Plasma Interp See Note [facility], [place] Comment on above: (NOTE) INTERPRETIVE INFORMATION: [...] should be considered. See Compliance Statement B: [employer] Performed By: [facility] [address] [place] [address] Software Lead: Nik Rosas MD, [place] Metanephrine 0.14 nmol/L 0 - 0.49 nmol/L [place], [place] Normetanephrine 0.73 nmol/L 0 - 0.89 nmol/L [facility], [place] Metanephrine, Plasmaon 10-13 Metaneph Interp See Note Normal [facility] Comment on above: Result Comment: (NOT E) [...] should be considered. See Compliance Statement B: [employer] Performed By: [facility] [address] [place] [id number] Software Lead: Nik Rosas MD, MS Performed By: #### C DP, CP, LIP, TROPI, LIPRF, GLYHGB #### [facility] [place], [place] [phone] Director Inbound Sales: Brandon Anaya MD Metanephrine 0.14 nmol/L Normal 0.00-0.49 [facility] Comment on above: Performed By: #### C DP, CP, LIP, TROPI, LIPRF, GLYHGB #### [facility] [place] [address] Director Inbound Sales: Brandon Anaya MD Normetanephrine 0.73 nmol/L Normal 0.00-0.89 [facility] Comment on above: Performed By: #### C JUAN GARZA, LIP, TROPI, LIPRF, GLYHGB #### [facility] [address] [place], [place] [phone] Director Inbound Sales: Brandon Anaya MD POC Glucose Fingerstickon Glucose [Mass/Vol] 86 mg/dL 65 - 105 mg/dL [place] Glucose [Mass/Vol] 105 mg/dL 65 - 105 mg/dL [place] Glucose [Mass/Vol] 159 mg/dL High 65 - 105 mg/dL [place] Interpretation and review of laboratory results Abnormal [place] Glucose [Mass/Vol] 113 mg/dL High 65 - 105 mg/dL [place] Interpretation and review of laboratory results Abnormal [place] T. pallidum Abon 10-14-2019 T. pallidum, IgG NONREACTIVE NONREACTIVE [place] Comment on above: T. pallidum antibodies are not detected. There is no serological evidence of infection with T. pallidum (early primary syphilis cannot be excluded). Retest in 2-4 weeks if syphilis is clinically suspect. T.pallidum Ab Screenon 10-13 T.pallidum Ab Screen NONREACTIVE Normal NR [facility] Comment on above: Result Comment: T. pallidum antibodies are not detected. There is no serological evidence of infection with T. pallidum (early primary syphilis cannot be excluded). Retest in 2-4 weeks if syphilis is clinically suspect. Performed By: #### C DP, CP, LIP, TROPI, LIPRF, GLYHGB #### [facility] [address] [place], [place] [phone] Director Inbound Sales: Brandon Anaya MD AMMONIAon 10-13-2019 Ammonia (P) [Mass/Vol] 28 umol/L 11 - 51 umol/L [place], [place] Ammoniaon 10-13-2019 Ammonia (P) [Mass/Vol] 28 umol/L Normal 11-51 [facility] Comment on above: Performed By: #### C DP, CP, LIP, TROPI, LIPRF, GLYHGB #### [facility] [address] [place] [address] Director Inbound Sales: Brandon Anaya MD BLOOD GAS, VENOUSon 10-13-19 20 Andrés Test NOT REPORTED [facility] [place] aPTT Coag (Bld) [Time] 37.0 s [facility] [employer] Carboxyhemoglobin 1.3 % 0 - 5 % [facility] [place] Comment on above: Reference Range: Non-Smokers 0-2% Average Smoker 2-4% Heavy Smoker <10% FIO2 ROOM AIR [facility] [employer] HCO3, Venous 28.4 mmol/L 24 - 30 mmol/L [facility] [place] Interpretation and review of laboratory results Abnormal [facility] [place] Methemoglobin NOT REPORTED 0 - 1.5 % [facility] [place] Mode NOT REPORTED [facility] [place] Negative Base Excess, Noah NOT REPORTED 0 - 2 mmol/L [facility] [place] NOTIFICATION NOT REPORTED [facility] [place] NOTIFICATION TIME NOT REPORTED [facility] [place] O2 Device/Flow/% NOT REPORTED [facility] [place] Oxygen saturation in Blood 78.1 % 60 - 85 % [facility] [place] Oxyhemoglobin NOT REPORTED 95 - 98 % [facility] [facility] [place] pCO2, Noah 42.6 [facility] [employer] [facility] [place] pCO2, Noah, Temp Adj NOT REPORTED [facility] [employer] [place] Peep/Cpap NOT REPORTED [facility] [employer] [facility] [place] pH, Noah 7.439 High [facility] [employer] [facility] [place] pH, Noah, Temp Adj NOT REPORTED [facility] [employer] [facility] [place] pO2, Noah 41.1 [facility] [employer] pO2, Noah, Temp Adj NOT REPORTED [facility] [employer] Positive Base Excess, Noah 4.2 mmol/L High 0 - 2 mmol/L [facility] [employer] [facility] [place] PSV NOT REPORTED [facility] [place] Pt. Position NOT REPORTED [facility] [employer] [place] Sample Site NOT REPORTED [facility] [employer] Set Rate NOT REPORTED [place], [place] Text for Respiratory NOT REPORTED [facility], CLARA Total Hb NOT REPORTED 12 - 16 g/dl [place] Total Rate NOT REPORTED [place] NOT REPORTED [place] Basic Metab w/rfx MGon 10-12 Potassium [Moles/Vol] 3.4 mmol/L Low 3.7-5.3 [facility] Comment on above: Performed By: #### C DP, CP, LIP, TROPI, LIPRF, GLYHGB #### [facility] [address] [place] [address] [phone] Director Inbound Sales: Brandon Anaya MD (cont.) [facility] Comment on above: Result Comment: Aver age GFR for 70 or more years old: 75 mL/min/1.73sq m Chronic Kidney Disease: <60 mL/min/1.73sq m Kidney failure: <15 mL/min/1.73sq m eGFR calculated using average adult body mass. Additional eGFR calculator available at: http://www.Mechanology/multiple_crcl_2012.htm Performed By: #### C DP, CP, LIP, TROPI, LIPRF, GLYHGB #### [facility] [address] [place] [address] [phone] Director Inbound Sales: Brandon Anaya MD Anion gap [Moles/Vol] 16 mmol/L Normal 9-17 [facility] Comment on above: Performed By: #### C DP, CP, LIP, TROPI, LIPRF, GLYHGB #### [employer] [address] [place] [address] [phone] Director Inbound Sales: Brandon Anaya MD Calcium [Mass/Vol] 9.0 mg/dL Normal 8.6-10.4 [facility] Comment on above: Performed By: #### C DP, CP, LIP, TROPI, LIPRF, GLYHGB #### [facility] [address] [place] [address] [phone] Director Inbound Sales: Brandon Anaya MD Chloride [Moles/Vol] 90 mmol/L Low 98-107 [facility] Comment on above: Performed By: #### C DP, CP, LIP, TROPI, LIPRF, GLYHGB #### [facility] [address] [place] [id number] Director Inbound Sales: Brandon Anaya MD CO2 [Moles/Vol] 25 mmol/L Normal 20-31 [facility] Comment on above: Performed By: #### C DP, CP, LIP, TROPI, LIPRF, GLYHGB #### [facility] [address] [place] [address] Director Inbound Sales: Brandon Anaya MD Creatinine [Mass/Vol] 0.47 mg/dL Low 0.50-0.90 [facility] Comment on above: Performed By: #### C DP, CP, LIP, TROPI, LIPRF, GLYHGB #### [facility] [address] [place] [address] Director Inbound Sales: Brandon Anaya MD GFR, Amer >60 Normal >60 [facility] Comment on above: Performed By: #### C DP, CP, LIP, TROPI, LIPRF, GLYHGB #### [facility] [address] [place] [address] Director Inbound Sales: Brandon Anaya MD GFR,non Amer >60 Normal >60 [facility] Comment on above: Performed By: #### C DP, CP, LIP, TROPI, LIPRF, GLYHGB #### [facility] [address] [place] [address] Director Inbound Sales: Brandon Anaya MD Glucose [Mass/Vol] 113 mg/dL High 70-99 [facility] Comment on above: Performed By: #### C DP, CP, LIP, TROPI, LIPRF, GLYHGB #### [facility] [address] [place] [address] [phone] Director Inbound Sales: Brandon Anaya MD Sodium [Moles/Vol] 131 mmol/L Low 135-144 [facility] Comment on above: Performed By: #### C DP, CP, LIP, TROPI, LIPRF, GLYHGB #### [facility] [address] [place], [place] [phone] Director Inbound Sales: Brandon Anaya MD Urea nitrogen [Mass/Vol] 16 mg/dL Normal 8- [facility] Comment on above: Performed By: #### C DP, CP, LIP, TROPI, LIPRF, GLYHGB #### [facility] [address] [place] [address] Director Inbound Sales: Brandon Anaya MD BUN/CRE Ratio NOT REPORTED Normal - [facility] Comment on above: Performed By: #### C DP, CP, LIP, TROPI, LIPRF, GLYHGB #### [facility] [address] [place], [place] [phone] Director Inbound Sales: Brandon Anaya MD Staging: NOT REPORTED Normal [facility] Comment on above: Performed By: #### C DP, CP, LIP, TROPI, LIPRF, GLYHGB #### [facility] [address] [place], [place] [phone] Director Inbound Sales: Brandon Anaya MD Basic Metabolic Panel w/ Ref kervin to MGon 10-13-2019 Anion gap [Moles/Vol] 16 mmol/L 9 - 17 mmol/L [place] Bun/Cre Ratio NOT REPORTED [place] Calcium [Mass/Vol] 9.0 mg/dL 8.6 - 10. 4 mg/dL [place] Chloride [Moles/Vol] 90 mmol/L Low 98 - 10 7 mmol/L [place] CO2 [Moles/Vol] 25 mmol/L 20 - 31 mmol/L [place] Creatinine [Mass/Vol] 0.47 mg/dL Low 0.5 - 0.9 mg/dL [place] GFR >60 >60 mL/min [place] GFR Non- >60 >60 mL/min [place] GFR/1.73 sq M predicted among non-blacks MDRD (S/P/Bld) [Vol rate/Area] NOT REPORTED [place] GFR/1.73 sq M predicted among non-blacks MDRD (S/P/Bld) [Vol rate/Area] [place] Comment on above: Average GFR for 70 o r more years old: 75 mL/min/1.73sq m Chronic Kidney Disease: <60 mL/min/1.73sq m Kidney failure: <15 mL/min/1.73sq m eGFR calculated using average adult body mass. Additional eGFR calculator available at: http://www.Mechanology/multiple_crcl_2012.htm Glucose [Mass/Vol] 113 mg/dL High 70 - 99 mg/dL [place], [place] Interpretation and review of laboratory results Abnormal [place] Potassium [Moles/Vol] 3.4 mmol/L Low 3.7 - 5.3 mmol/L [place] Sodium [Moles/Vol] 131 mmol/L Low 135 - 144 mmol/L [place] Urea nitrogen [Mass/Vol] 16 mg/dL 8 - 23 mg/dL [place] CBC auto differentialon 09-24 Basophils (Bld) [#/Vol] 0.07 10*3/uL [place] Basophils/100 WBC (Bld) 1 % 0 - 2 % [place] Differential Type NOT REPORTED [place] Eosinophils (Bld) [#/Vol] 10*3/uL [place] Eosinophils/100 WBC (Bld) 0 % Low 1 - 4 % [place] Erythrocyte distribution width (RBC) [Ratio] 15.0 % High 11.8 - 14.4 % [place] Hematocrit (Bld) [Volume fraction] 45.5 % 36.3 - 47.1 % [place] Hemoglobin (Bld) [Mass/Vol] 14.5 g/dL 11.9 - 15.1 g/dL [place] Immature granulocytes (Bld) [#/Vol] 0.14 10*3/uL [place] Immature granulocytes (Bld) [#/Vol] 1 % High 0 [place] Interpretation and review of laboratory results Abnormal [place] Lymphocytes (Bld) [#/Vol] 2.84 10*3/uL [place] Lymphocytes/100 WBC (Bld) 23 % Low 24 - 43 % [place] MCH (RBC) [Entitic mass] 29.8 pg 25.2 - 33.5 pg [place] MCHC (RBC) [Mass/Vol] 31.9 g/dL 28.4 - 34.8 g/dL [place] MCV (RBC) [Entitic vol] 93.4 fL 82.6 - 102.9 fL [place] Monocytes (Bld) [#/Vol] 1.22 10*3/uL High [place] Monocytes/100 WBC (Bld) 10 % 3 - 12 % [place] Platelet mean volume (Bld) [Entitic vol] 10.5 fL 8.1 - 13.5 fL [place] Platelets (Bld) [#/Vol] NOT REPORTED [place] Platelets (Bld) [#/Vol] 210 10*3/uL [place] RBC (Bld) [#/Vol] 4.87 10*6/uL 3.95 - 5.1 1 m/uL [place] RBC morphology finding Nom (Bld) ANISOCYTOSIS PRESENT [place] Segmented neutrophils/100 WBC (Bld) 65 % 36 - 65 % [place] Segs Absolute 8.01 [place] WBC (Bld) [#/Vol] 12.3 10*3/uL High [place] WBC (Bld) [#/Vol] 0.0 10*3/uL 0.0 per 10 0 WBC [place] WBC Morphology NOT REPORTED [place] CBC with Diffon 08-19-2020 Abs. Basophil 0.07 k/uL Normal 0.00-0.20 [facility] Comment on above: Performed By: #### C DP, CP, LIP, TROPI, LIPRF, GLYHGB #### [address] [address] Director Inbound Sales: Brandon Anaya MD Abs.Imm.Granulocyte 0.14 k/uL Normal 0.00-0.30 [facility] Comment on above: Performed By: #### C DP, CP, LIP, TROPI, LIPRF, GLYHGB #### [address] [address] Director Inbound Sales: Brandon Anaya MD Abs.Neutrophil (Seg) 8.01 k/uL Normal 1.50-8.10 [facility] Comment on above: Performed By: #### C DP, CP, LIP, TROPI, LIPRF, GLYHGB #### [address] [address] Director Inbound Sales: Brandon Anaya MD Basophils/100 WBC (Bld) 1 % Normal 0-2 [facility] Comment on above: Performed By: #### C DP, CP, LIP, TROPI, LIPRF, GLYHGB #### [address] [address] Director Inbound Sales: Brandon Anaya MD Eosinophils (Bld) [#/Vol] 10*3/uL Normal 0.00-0.44 [facility] Comment on above: Performed By: #### C DP, CP, LIP, TROPI, LIPRF, GLYHGB #### [address] [address] Director Inbound Sales: Brandon Anaya MD Eosinophils/100 WBC (Bld) 0 % Low 1-4 [facility] Comment on above: Performed By: #### C DP, CP, LIP, TROPI, LIPRF, GLYHGB #### [facility] [address] [place] [phone] Director Inbound Sales: Brandon Anaya MD Erythrocyte distribution width (RBC) [Ratio] 15.0 % High 11.8-14.4 [facility] Comment on above: Performed By: #### C DP, CP, LIP, TROPI, LIPRF, GLYHGB #### [address] [address] Director Inbound Sales: Brandon Anaya MD Hematocrit (Bld) [Volume fraction] 45.5 % Normal 36.3-47.1 [facility] Comment on above: Performed By: #### C DP, CP, LIP, TROPI, LIPRF, GLYHGB #### [address] [address] Director Inbound Sales: Brandon Anaya MD Hemoglobin (Bld) [Mass/Vol] 14.5 g/dL Normal 11.9-15.1 [facility] Comment on above: Performed By: #### C DP, CP, LIP, TROPI, LIPRF, GLYHGB #### [address] [address] Director Inbound Sales: Brandon Anaya MD Immature granulocytes (Bld) [#/Vol] 1 % High 0 [facility] Comment on above: Performed By: #### C DP, CP, LIP, TROPI, LIPRF, GLYHGB #### [address] [address] Director Inbound Sales: Brandon Anaya MD Lymphocytes (Bld) [#/Vol] 2.84 10*3/uL Normal 1.10-3.70 [facility] Comment on above: Performed By: #### C DP, CP, LIP, TROPI, LIPRF, GLYHGB #### [address] [address] Director Inbound Sales: Brandon Anaya MD Lymphocytes/100 WBC (Bld) 23 % Low 24-43 [facility] Comment on above: Performed By: #### C DP, CP, LIP, TROPI, LIPRF, GLYHGB #### [facility] [address] [place] [address] Director Inbound Sales: Brandon Anaya MD MCH (RBC) [Entitic mass] 29.8 pg Normal 25.2-33.5 [facility] Comment on above: Performed By: #### C DP, CP, LIP, TROPI, LIPRF, GLYHGB #### [address] [address] Director Inbound Sales: Brandon Anaya MD MCHC (RBC) [Mass/Vol] 31.9 g/dL Normal 28.4-34.8 [facility] Comment on above: Performed By: #### C DP, CP, LIP, TROPI, LIPRF, GLYHGB #### [place] [address] Director Inbound Sales: Brandon Anaya MD MCV (RBC) [Entitic vol] 93.4 fL Normal 82.6-102.9 [facility] Comment on above: Performed By: #### C DP, CP, LIP, TROPI, LIPRF, GLYHGB #### [place] [address] Director Inbound Sales: Brandon Anaya MD Monocytes (Bld) [#/Vol] 1.22 10*3/uL High 0.10-1.20 [facility] Comment on above: Performed By: #### C DP, CP, LIP, TROPI, LIPRF, GLYHGB #### [address] [address] Director Inbound Sales: Brandon Anaya MD Monocytes/100 WBC (Bld) 10 % Normal 3-12 [facility] Comment on above: Performed By: #### C DP, CP, LIP, TROPI, LIPRF, GLYHGB #### [address] [address] Director Inbound Sales: Brandon Anaya MD Neutrophil (Seg) 65 % Normal 36-65 [facility] Comment on above: Performed By: #### C DP, CP, LIP, TROPI, LIPRF, GLYHGB #### [address] [address] Director Inbound Sales: Brandon Anaya MD NRBC Automated 0.0 per 100 WBC Normal 0.0 [facility] Comment on above: Performed By: #### C DP, CP, LIP, TROPI, LIPRF, GLYHGB #### [address] [address] Director Inbound Sales: Brandon Anaya MD Platelet mean volume (Bld) [Entitic vol] 10.5 fL Normal 8.1-13.5 [facility] Comment on above: Performed By: #### C DP, CP, LIP, TROPI, LIPRF, GLYHGB #### [address] [address] Director Inbound Sales: Brandon Anaya MD Platelets (Bld) [#/Vol] 210 10*3/uL Normal 138-453 [facility] Comment on above: Performed By: #### C DP, CP, LIP, TROPI, LIPRF, GLYHGB #### [address] [address] Director Inbound Sales: Brandon Anaya MD RBC (Bld) [#/Vol] 4.87 10*6/uL Normal 3.95-5.11 [facility] Comment on above: Performed By: #### C DP, CP, LIP, TROPI, LIPRF, GLYHGB #### [address] [address] Director Inbound Sales: Brandon Anaya MD RBC morphology finding Nom (Bld) ANISOCYTOSIS PRESENT Normal [facility] Comment on above: Performed By: #### C DP, CP, LIP, TROPI, LIPRF, GLYHGB #### [address] [address] Director Inbound Sales: Brandon Anaya MD WBC (Bld) [#/Vol] 12.3 10*3/uL High 3.5-11.3 [facility] Comment on above: Performed By: #### C DP, CP, LIP, TROPI, LIPRF, GLYHGB #### [address] [address] Director Inbound Sales: Brandon Anaya MD Auto Diff Performed NOT REPORTED Normal [facility] Comment on above: Performed By: #### C DP, CP, LIP, TROPI, LIPRF, GLYHGB #### [address] [address] Director Inbound Sales: Brandon Anaya MD Platelets (Bld) [#/Vol] NOT REPORTED Normal [facility] Comment on above: Performed By: #### C DP, CP, LIP, TROPI, LIPRF, GLYHGB #### [address] [address] Director Inbound Sales: Brandon Anaya MD WBC Morphology NOT REPORTED Normal [facility] Comment on above: Performed By: #### C DP, CP, LIP, TROPI, LIPRF, GLYHGB #### [address] [address] Director Inbound Sales: Brandon Anaya MD Magnesiumon 10-13-2019 Magnesium [Mass/Vol] 2.2 mg/dL Normal 1.6-2.6 [facility] Comment on above: Performed By: #### C DP, CP, LIP, TROPI, LIPRF, GLYHGB #### [address] [address] Director Inbound Sales: Brandon Anaya MD Magnesium [Mass/Vol] 2.2 mg/dL 1.6 - 2 .6 mg/dL [place] POC Glucose Fingerstickon Glucose [Mass/Vol] 121 mg/dL High 65 - 105 mg/dL [place] Interpretation and review of laboratory results Abnormal [place] Glucose [Mass/Vol] 100 mg/dL 65 - 105 mg/dL [place] Glucose [Mass/Vol] 104 mg/dL 65 - 105 mg/dL [place] Glucose [Mass/Vol] 123 mg/dL High 65 - 105 mg/dL [place] Interpretation and review of laboratory results Abnormal [place] Venous Blood Gaseson 020 Body Temp. 37.0 Normal [facility] Comment on above: Performed By: #### C DP, CP, LIP, TROPI, LIPRF, GLYHGB #### [address] [phone] Director Inbound Sales: Brandon Anaya MD Carboxy Hgb 1.3 % Normal 0-5 [facility] Comment on above: Result Comment: Reference Range: Non-Smokers 0-2% Average Smoker 2-4% Heavy Smoker <10% Performed By: #### C DP, CP, LIP, TROPI, LIPRF, GLYHGB #### [address] [phone] Director Inbound Sales: Brandon Anaya MD FIO2 ROOM AIR Normal [facility] Comment on above: Performed By: #### C DP, CP, LIP, TROPI, LIPRF, GLYHGB #### [address] [phone] Director Inbound Sales: Brandon Anaya MD HCO3 (Bld) [Moles/Vol] 28.4 mmol/L Normal 24-30 [facility] Comment on above: Performed By: #### C DP, CP, LIP, TROPI, LIPRF, GLYHGB #### [address] [address] Director Inbound Sales: Brandon Anaya MD Oxygen (Bld) [Partial pressure] 41.1 mm[Hg] Normal 30-50 [facility] Comment on above: Performed By: #### C DP, CP, LIP, TROPI, LIPRF, GLYHGB #### [address] [address] Director Inbound Sales: Brandon Anaya MD Oxygen saturation in Blood 78.1 % Normal 60.0-85.0 [facility] Comment on above: Performed By: #### C DP, CP, LIP, TROPI, LIPRF, GLYHGB #### [address] [address] Director Inbound Sales: Brandon Anaya MD pCO2 42.6 Normal 39-55 [facility] Comment on above: Performed By: #### C DP, CP, LIP, TROPI, LIPRF, GLYHGB #### [address] [address] Director Inbound Sales: Brandon Anaya MD pH (Bld) 7.439 [pH] High 7.320-7.420 [facility] Comment on above: Performed By: #### C DP, CP, LIP, TROPI, LIPRF, GLYHGB #### [address] [address] Director Inbound Sales: Brandon Anaya MD Positive Base Excess 4.2 mmol/L High 0.0-2.0 [facility] Comment on above: Performed By: #### C DP, CP, LIP, TROPI, LIPRF, GLYHGB #### [address] [address] Director Inbound Sales: Brandon Anaya MD Andrés Test NOT REPORTED Normal [facility] Comment on above: Performed By: #### C DP, CP, LIP, TROPI, LIPRF, GLYHGB #### [address] [address] Director Inbound Sales: Brandon Anaya MD Methemoglobin NOT REPORTED Normal 0.0-1.5 [facility] Comment on above: Performed By: #### C DP, CP, LIP, TROPI, LIPRF, GLYHGB #### [facility] [address] [place] [address] Director Inbound Sales: Brandon Anaya MD Mode NOT REPORTED Normal [facility] Comment on above: Performed By: #### C DP, CP, LIP, TROPI, LIPRF, GLYHGB #### [address] [address] Director Inbound Sales: Brandon Anaya MD Negative Base Excess NOT REPORTED Normal 0.0-2.0 [facility] Comment on above: Performed By: #### C DP, CP, LIP, TROPI, LIPRF, GLYHGB #### [address] [address] Director Inbound Sales: Brandon Anaya MD Notification Time NOT REPORTED Normal [facility] Comment on above: Performed By: #### C DP, CP, LIP, TROPI, LIPRF, GLYHGB #### [address] [address] Director Inbound Sales: Brandon Anaya MD Notification: NOT REPORTED Normal [facility] Comment on above: Performed By: #### C DP, CP, LIP, TROPI, LIPRF, GLYHGB #### [address] [address] Director Inbound Sales: Brandon Anaya MD O2 Device/Flow/% NOT REPORTED Normal [facility] Comment on above: Performed By: #### C DP, CP, LIP, TROPI, LIPRF, GLYHGB #### [address] [address] Director Inbound Sales: Brandon Anaya MD Oxyhemoglobin NOT REPORTED Normal 95.0-98.0 [facility] Comment on above: Performed By: #### C DP, CP, LIP, TROPI, LIPRF, GLYHGB #### [address] [address] Director Inbound Sales: Brandon Anaya MD Pco2 Adj'd for Temp. NOT REPORTED Normal 39-55 Me [facility] Comment on above: Performed By: #### C DP, CP, LIP, TROPI, LIPRF, GLYHGB #### [address] [address] Director Inbound Sales: Brandon Anaya MD PEEP/CPAP NOT REPORTED Normal [facility] Comment on above: Performed By: #### C DP, CP, LIP, TROPI, LIPRF, GLYHGB #### [address] [address] Director Inbound Sales: Brandon Anaya MD pH Adjst'd for Temp. NOT REPORTED Normal 7.320-7.420 M [facility] Comment on above: Performed By: #### C DP, CP, LIP, TROPI, LIPRF, GLYHGB #### [address] [address] Director Inbound Sales: Brandon Anaya MD pO2 Adj'd for Temp. NOT REPORTED Normal 30-50 [facility] Comment on above: Performed By: #### C DP, CP, LIP, TROPI, LIPRF, GLYHGB #### [address] [address] Director Inbound Sales: Brandon Anaya MD PSV NOT REPORTED Normal [facility] Comment on above: Performed By: #### C DP, CP, LIP, TROPI, LIPRF, GLYHGB #### [address] [place] [address] Director Inbound Sales: Brandon Anaya MD Pt. Position NOT REPORTED Normal [facility] Comment on above: Performed By: #### C DP, CP, LIP, TROPI, LIPRF, GLYHGB #### [address] [address] Director Inbound Sales: Brandon Anaya MD Set Rate NOT REPORTED Normal [facility] Comment on above: Performed By: #### C DP, CP, LIP, TROPI, LIPRF, GLYHGB #### [address] [address] Director Inbound Sales: Brandon Anaya MD Site Drawn NOT REPORTED Normal [facility] Comment on above: Performed By: #### C DP, CP, LIP, TROPI, LIPRF, GLYHGB #### [address] [address] Director Inbound Sales: Brandon Anaya MD Text for Respiratory NOT REPORTED Normal [facility] Comment on above: Performed By: #### C DP, CP, LIP, TROPI, LIPRF, GLYHGB #### [address] [address] Director Inbound Sales: Brandon Anaya MD Total Hb NOT REPORTED Normal 12.0-16.0 [facility] Comment on above: Performed By: #### C DP, CP, LIP, TROPI, LIPRF, GLYHGB #### [facility] [address] [place] [address] Director Inbound Sales: Brandon Anaya MD Total Rate NOT REPORTED Normal [facility] Comment on above: Performed By: #### C DP, CP, LIP, TROPI, LIPRF, GLYHGB #### [facility] [address] [place] [address] Director Inbound Sales: Brandon Anaya MD [place] NOT REPORTED Normal [facility] Comment on above: Performed By: #### C DP, CP, LIP, TROPI, LIPRF, GLYHGB #### [facility] [address] [place] [address] Director Inbound Sales: [facility] Comment: NOT REPORTED Normal [facility] Comment on above: Performed By: #### C DP, CP, LIP, TROPI, LIPRF, GLYHGB #### [address] [address] Director Inbound Sales: Brandon Anaya MD Basic Metab w/rfx [facility] 10-11 Potassium [Moles/Vol] 3.3 mmol/L Low 3.7-5.3 [facility] Comment on above: Performed By: #### C DP, CP, LIP, TROPI, LIPRF, GLYHGB #### [address] [address] Director Inbound Sales: Brandon Anaya MD (cont.) Normal [facility] Comment on above: Result Comment: Aver age GFR for 70 or more years old: 75 mL/min/1.73sq m Chronic Kidney Disease: <60 mL/min/1.73sq m Kidney failure: <15 mL/min/1.73sq m eGFR calculated using average adult body mass. Additional eGFR calculator available at: http://www.[employer]ably/multiple_crcl_2011.htm Performed By: #### C DP, CP, LIP, TROPI, LIPRF, GLYHGB #### [address] [address] Director Inbound Sales: Brandon Anaya MD Anion gap [Moles/Vol] 12 mmol/L Normal 9-17 [facility] Comment on above: Performed By: #### C DP, CP, LIP, TROPI, LIPRF, GLYHGB #### [address] [address] Director Inbound Sales: Brandon Anaya MD Calcium [Mass/Vol] 8.6 mg/dL Normal 8.6-10.4 [facility] Comment on above: Performed By: #### C DP, CP, LIP, TROPI, LIPRF, GLYHGB #### [address] [address] Director Inbound Sales: Brandon Anaya MD Chloride [Moles/Vol] 94 mmol/L Low 98-107 [facility] Comment on above: Performed By: #### C DP, CP, LIP, TROPI, LIPRF, GLYHGB #### [address] [address] Director Inbound Sales: Brandon Anaya MD CO2 [Moles/Vol] 26 mmol/L Normal 20-31 [facility] Comment on above: Performed By: #### C DP, CP, LIP, TROPI, LIPRF, GLYHGB #### [address] [address] Director Inbound Sales: Brandon Anaya MD Creatinine [Mass/Vol] 0.46 mg/dL Low 0.50-0.90 [facility] Comment on above: Performed By: #### C DP, CP, LIP, TROPI, LIPRF, GLYHGB #### [address] [address] Director Inbound Sales: Brandon Anaya MD GFR, Amer >60 Normal >60 [facility] Comment on above: Performed By: #### C DP, CP, LIP, TROPI, LIPRF, GLYHGB #### [address] [address] Director Inbound Sales: Brandon Anaya MD GFR,non Amer >60 Normal >60 [facility] Comment on above: Performed By: #### C DP, CP, LIP, TROPI, LIPRF, GLYHGB #### [facility] [place] [address] [place] [address] Director Inbound Sales: Brandon Anaya MD Glucose [Mass/Vol] 136 mg/dL High 70-99 [facility] Comment on above: Performed By: #### C DP, CP, LIP, TROPI, LIPRF, GLYHGB #### [address] [address] Director Inbound Sales: Brandon Anaya MD Sodium [Moles/Vol] 132 mmol/L Low 135-144 [facility] Comment on above: Performed By: #### C DP, CP, LIP, TROPI, LIPRF, GLYHGB #### [address] [address] Director Inbound Sales: Brandon Anaya MD Urea nitrogen [Mass/Vol] 16 mg/dL Normal 8- [facility] Comment on above: Performed By: #### C DP, CP, LIP, TROPI, LIPRF, GLYHGB #### [address] [address] Director Inbound Sales: Brandon Anaya MD BUN/CRE Ratio NOT REPORTED Normal 11-13 [facility] Comment on above: Performed By: #### C DP, CP, LIP, TROPI, LIPRF, GLYHGB #### [facility] [place] [address] Director Inbound Sales: Brandon Anaya MD Staging: NOT REPORTED Normal [facility] Comment on above: Performed By: #### C DP, CP, LIP, TROPI, LIPRF, GLYHGB #### [facility] [place] [address] Director Inbound Sales: Brandon Anaya MD Basic Metabolic Panel w/ Ref kervin to MGon 10-12-2019 Anion gap [Moles/Vol] 12 mmol/L 9 - 17 mmol/L [place] Bun/Cre Ratio NOT REPORTED [place] Calcium [Mass/Vol] 8.6 mg/dL 8.6 - 10. 4 mg/dL [place] Chloride [Moles/Vol] 94 mmol/L Low 98 - 10 7 mmol/L [place] CO2 [Moles/Vol] 26 mmol/L 20 - 31 mmol/L [place] Creatinine [Mass/Vol] 0.46 mg/dL Low 0.5 - 0.9 mg/dL [place] GFR >60 >60 mL/min [place] GFR Non- >60 >60 mL/min [place] GFR/1.73 sq M predicted among non-blacks MDRD (S/P/Bld) [Vol rate/Area] [place] Comment on above: Average GFR for 70 o r more years old: 75 mL/min/1.73sq m Chronic Kidney Disease: <60 mL/min/1.73sq m Kidney failure: <15 mL/min/1.73sq m eGFR calculated using average adult body mass. Additional eGFR calculator available at: http://www.Mechanology/multiple_crcl_2012.htm GFR/1.73 sq M predicted among non-blacks MDRD (S/P/Bld) [Vol rate/Area] NOT REPORTED [place] Glucose [Mass/Vol] 136 mg/dL High 70 - 99 mg/dL [place] Interpretation and review of laboratory results Abnormal [place] Potassium [Moles/Vol] 3.3 mmol/L Low 3.7 - 5.3 mmol/L [place] Sodium [Moles/Vol] 132 mmol/L Low 135 - 144 mmol/L [place] Urea nitrogen [Mass/Vol] 16 mg/dL 8 - 23 mg/dL [place] CBC auto differentialon 09-24 Basophils (Bld) [#/Vol] 0.04 10*3/uL [place] Basophils/100 WBC (Bld) 0 % 0 - 2 % [place] Differential Type NOT REPORTED [place] Eosinophils (Bld) [#/Vol] 10*3/uL [place] Eosinophils/100 WBC (Bld) 0 % Low 1 - 4 % [place] Erythrocyte distribution width (RBC) [Ratio] 14.7 % High 11.8 - 14.4 % [place] Hematocrit (Bld) [Volume fraction] 40.5 % 36.3 - 47.1 % [place] Hemoglobin (Bld) [Mass/Vol] 12.7 g/dL 11.9 - 15.1 g/dL [place] Immature granulocytes (Bld) [#/Vol] 0.11 10*3/uL [place] Immature granulocytes (Bld) [#/Vol] 1 % High 0 [place] Interpretation and review of laboratory results Abnormal [place] Lymphocytes (Bld) [#/Vol] 1.50 10*3/uL [place] Lymphocytes/100 WBC (Bld) 12 % Low 24 - 43 % [place] MCH (RBC) [Entitic mass] 29.4 pg 25.2 - 33.5 pg [place] MCHC (RBC) [Mass/Vol] 31.4 g/dL 28.4 - 34.8 g/dL [place] MCV (RBC) [Entitic vol] 93.8 fL 82.6 - 102.9 fL [place] Monocytes (Bld) [#/Vol] 0.87 10*3/uL [place] Monocytes/100 WBC (Bld) 7 % 3 - 12 % [place] Platelet mean volume (Bld) [Entitic vol] 10.7 fL 8.1 - 13.5 fL [place] Platelets (Bld) [#/Vol] 196 10*3/uL [place] Platelets (Bld) [#/Vol] NOT REPORTED [place] RBC (Bld) [#/Vol] 4.32 10*6/uL 3.95 - 5.1 1 m/uL [place] RBC morphology finding Nom (Bld) ANISOCYTOSIS PRESENT [place] Segmented neutrophils/100 WBC (Bld) 79 % High 36 - 65 % [place] Segs Absolute 9.64 High [place] WBC (Bld) [#/Vol] 12.2 10*3/uL High [place] WBC (Bld) [#/Vol] 0.0 10*3/uL 0.0 per 10 0 WBC [place] WBC Morphology NOT REPORTED [place] CBC with Diffon 10-12-2019 Abs. Basophil 0.04 k/uL Normal 0.00-0.20 [facility] Comment on above: Performed By: #### C DP, CP, LIP, TROPI, LIPRF, GLYHGB #### [place] [address] Director Inbound Sales: Brandon Anaya MD Abs.Imm.Granulocyte 0.11 k/uL Normal 0.00-0.30 [facility] Comment on above: Performed By: #### C DP, CP, LIP, TROPI, LIPRF, GLYHGB #### [facility] [place] [address] Director Inbound Sales: Brandon Anaya MD Abs.Neutrophil (Seg) 9.64 k/uL High 1.50-8.10 [facility] Comment on above: Performed By: #### C DP, CP, LIP, TROPI, LIPRF, GLYHGB #### [facility] [place] [address] Director Inbound Sales: Brandon Anaya MD Basophils/100 WBC (Bld) 0 % Normal 0-2 [facility] Comment on above: Performed By: #### C DP, CP, LIP, TROPI, LIPRF, GLYHGB #### [address] [address] Director Inbound Sales: Brandon Anaya MD Eosinophils (Bld) [#/Vol] 10*3/uL Normal 0.00-0.44 [facility] Comment on above: Performed By: #### C DP, CP, LIP, TROPI, LIPRF, GLYHGB #### [facility] [place] [address] Director Inbound Sales: Brandon Anaya MD Eosinophils/100 WBC (Bld) 0 % Low 1-4 [facility] Comment on above: Performed By: #### C DP, CP, LIP, TROPI, LIPRF, GLYHGB #### [address] [address] Director Inbound Sales: Brandon Anaya MD Erythrocyte distribution width (RBC) [Ratio] 14.7 % High 11.8-14.4 [facility] Comment on above: Performed By: #### C DP, CP, LIP, TROPI, LIPRF, GLYHGB #### [facility] [place] [address] Director Inbound Sales: Brandon Anaya MD Hematocrit (Bld) [Volume fraction] 40.5 % Normal 36.3-47.1 [facility] Comment on above: Performed By: #### C DP, CP, LIP, TROPI, LIPRF, GLYHGB #### [address] [address] Director Inbound Sales: Brandon Anaya MD Hemoglobin (Bld) [Mass/Vol] 12.7 g/dL Normal 11.9-15.1 [facility] Comment on above: Performed By: #### C DP, CP, LIP, TROPI, LIPRF, GLYHGB #### [facility] [address] [place] [address] Director Inbound Sales: Brandon Anaya MD Immature granulocytes (Bld) [#/Vol] 1 % High 0 [facility] Comment on above: Performed By: #### C DP, CP, LIP, TROPI, LIPRF, GLYHGB #### [facility] [address] [place] [address] Director Inbound Sales: Brandon Anaya MD Lymphocytes (Bld) [#/Vol] 1.50 10*3/uL Normal 1.10-3.70 [facility] Comment on above: Performed By: #### C DP, CP, LIP, TROPI, LIPRF, GLYHGB #### [address] [address] Director Inbound Sales: Brandon Anaya MD Lymphocytes/100 WBC (Bld) 12 % Low 24-43 [facility] Comment on above: Performed By: #### C DP, CP, LIP, TROPI, LIPRF, GLYHGB #### [address] [address] Director Inbound Sales: Brandon Anaya MD MCH (RBC) [Entitic mass] 29.4 pg Normal 25.2-33.5 [facility] Comment on above: Performed By: #### C DP, CP, LIP, TROPI, LIPRF, GLYHGB #### [address] [address] Director Inbound Sales: Brandon Anaya MD MCHC (RBC) [Mass/Vol] 31.4 g/dL Normal 28.4-34.8 [facility] Comment on above: Performed By: #### C DP, CP, LIP, TROPI, LIPRF, GLYHGB #### [address] [address] Director Inbound Sales: Brandon Anaya MD MCV (RBC) [Entitic vol] 93.8 fL Normal 82.6-102.9 [facility] Comment on above: Performed By: #### C DP, CP, LIP, TROPI, LIPRF, GLYHGB #### [address] [address] Director Inbound Sales: Brandon Anaya MD Monocytes (Bld) [#/Vol] 0.87 10*3/uL Normal 0.10-1.20 [facility] Comment on above: Performed By: #### C DP, CP, LIP, TROPI, LIPRF, GLYHGB #### [address] [address] Director Inbound Sales: Brandon Anaya MD Monocytes/100 WBC (Bld) 7 % Normal 3-12 [facility] Comment on above: Performed By: #### C DP, CP, LIP, TROPI, LIPRF, GLYHGB #### [address] [address] Director Inbound Sales: Brandon Anaya MD Neutrophil (Seg) 79 % High 36-65 [facility] Comment on above: Performed By: #### C DP, CP, LIP, TROPI, LIPRF, GLYHGB #### [address] [address] Director Inbound Sales: Brandon Anaya MD NRBC Automated 0.0 per 100 WBC Normal 0.0 [facility] Comment on above: Performed By: #### C DP, CP, LIP, TROPI, LIPRF, GLYHGB #### [address] [address] Director Inbound Sales: Brandon Anaya MD Platelet mean volume (Bld) [Entitic vol] 10.7 fL Normal 8.1-13.5 [facility] Comment on above: Performed By: #### C DP, CP, LIP, TROPI, LIPRF, GLYHGB #### [address] [address] Director Inbound Sales: Brandon Anaya MD Platelets (Bld) [#/Vol] 196 10*3/uL Normal 138-453 [facility] Comment on above: Performed By: #### C DP, CP, LIP, TROPI, LIPRF, GLYHGB #### [address] [address] Director Inbound Sales: Brandon Anaya MD RBC (Bld) [#/Vol] 4.32 10*6/uL Normal 3.95-5.11 [facility] Comment on above: Performed By: #### C DP, CP, LIP, TROPI, LIPRF, GLYHGB #### [address] [address] Director Inbound Sales: Brandon Anaya MD RBC morphology finding Nom (Bld) ANISOCYTOSIS PRESENT Normal [facility] Comment on above: Performed By: #### C DP, CP, LIP, TROPI, LIPRF, GLYHGB #### [address] [address] Director Inbound Sales: Brandon Anaya MD WBC (Bld) [#/Vol] 12.2 10*3/uL High 3.5-11.3 [facility] Comment on above: Performed By: #### C DP, CP, LIP, TROPI, LIPRF, GLYHGB #### [address] [address] Director Inbound Sales: Brandon Anaya MD Auto Diff Performed NOT REPORTED Normal [facility] Comment on above: Performed By: #### C DP, CP, LIP, TROPI, LIPRF, GLYHGB #### [address] [address] Director Inbound Sales: Brandon Anaya MD Platelets (Bld) [#/Vol] NOT REPORTED Normal [facility] Comment on above: Performed By: #### C DP, CP, LIP, TROPI, LIPRF, GLYHGB #### [address] [address] Director Inbound Sales: Brandon Anaya MD WBC Morphology NOT REPORTED Normal [facility] Comment on above: Performed By: #### C DP, CP, LIP, TROPI, LIPRF, GLYHGB #### [facility] [place] [address] Director Inbound Sales: Brandon Anaya MD Magnesiumon 10-12-2019 Magnesium [Mass/Vol] 2.2 mg/dL Normal 1.6-2.6 [facility] Comment on above: Performed By: #### C DP, CP, LIP, TROPI, LIPRF, GLYHGB #### [facility] [address] [place] [address] Director Inbound Sales: Brandon Anaya MD Magnesium [Mass/Vol] 2.2 mg/dL 1.6 - 2 .6 mg/dL [place] POC Glucose Fingerstickon Glucose [Mass/Vol] 117 mg/dL High 65 - 105 mg/dL [place] Interpretation and review of laboratory results Abnormal [place] Glucose [Mass/Vol] 115 mg/dL High 65 - 105 mg/dL [place] Interpretation and review of laboratory results Abnormal [place] Glucose [Mass/Vol] 123 mg/dL High 65 - 105 mg/dL [place] Interpretation and review of laboratory results Abnormal [place] Glucose [Mass/Vol] 117 mg/dL High 65 - 105 mg/dL [place] Interpretation and review of laboratory results Abnormal [place] URINALYSIS WITH MICROSCOPICo n 10-12-2019 Amorphous, UA NOT REPORTED None [place] Bacteria, UA NOT REPORTED None [place] Bilirubin Urine Negative NEGATIVE [place] Casts UA 0 TO 2 HYALINE Refer ence range defined for non-centrifuged specimen. [place] Color, UA YELLOW YELLOW [place] Crystals, UA NOT REPORTED None /HPF [place] Epithelial Cells UA 2 TO 5 [place] Glucose, Ur Negative NEGATIVE [place] Interpretation and review of laboratory results Abnormal [place] Ketones Ql (U) SMALL Abnormal NEGATIVE [place] Leukocyte esterase Test strip Ql (U) Negative NEGATIVE [place] Mucus, UA NOT REPORTED None [place] Nitrite, Urine Negative NEGATIVE [place] Other Observations UA NOT REPORTED NOT REQ. [place] pH, UA 8.5 High [place] Protein (U) [Mass/Vol] Negative NEGATIVE [place] RBC (U) [#/Vol] TOO NUMEROUS TO COUNT [place] Comment on above: Reference range defi nya for non-centrifuged specimen. Renal Epithelial, UA NOT REPORTED 0 /HPF [place] Specific [place], UA 1.011 [place] Trichomonas, UA NOT REPORTED None [place] Turbidity UA TURBID Abnormal CLEAR [place] Urine Hgb Negative NEGATIVE [place] Urobilinogen, Urine Normal Normal [place] WBC, UA 0 TO 2 [place] Yeast, UA NOT REPORTED None [place] - [place] Urinalysis w/ Microon 2019 ----- Normal [facility] Comment on above: Performed By: #### C DP, CP, LIP, TROPI, LIPRF, GLYHGB #### [facility] [address] [place] [address] Director Inbound Sales: Brandon Anaya MD Acetoacetic Acid,Ur SMALL Abnormal NEG [facility] Comment on above: Performed By: #### C DP, CP, LIP, TROPI, LIPRF, GLYHGB #### [facility] [address] [place] [address] Director Inbound Sales: Brandon Anaya MD Bilirubin, SemiQt,Ur Negative Normal NEG [facility] Comment on above: Performed By: #### C DP, CP, LIP, TROPI, LIPRF, GLYHGB #### [facility] [address] [place] [address] Director Inbound Sales: Brandon Anaya MD Casts LM.LPF (Urine sed) [#/Area] 0 TO 2 HYALINE Normal 0-8 [facility] Comment on above: Result Comment: Refe rence range defined for non-centrifuged specimen. Performed By: #### C DP, CP, LIP, TROPI, LIPRF, GLYHGB #### [address] [address] Director Inbound Sales: Brandon Anaya MD Color (U) YELLOW Normal YEL [facility] Comment on above: Performed By: #### C DP, CP, LIP, TROPI, LIPRF, GLYHGB #### [address] [address] Director Inbound Sales: Brandon Anaya MD Epithelial cells LM.HPF (Urine sed) [#/Area] 2 TO 5 Normal 0-5 [facility] Comment on above: Performed By: #### C DP, CP, LIP, TROPI, LIPRF, GLYHGB #### [address] [address] Director Inbound Sales: Brandon Anaya MD Glucose Ql (U) Negative Normal NEG [facility] Comment on above: Performed By: #### C DP, CP, LIP, TROPI, LIPRF, GLYHGB #### [address] [address] Director Inbound Sales: Brandon Anaya MD Hemoglobin, Ur Negative Normal NEG [facility] Comment on above: Performed By: #### C DP, CP, LIP, TROPI, LIPRF, GLYHGB #### [address] [address] Director Inbound Sales: Brandon Anaya MD Leukocyte esterase Test strip Ql (U) Negative Normal NEG [facility] Comment on above: Performed By: #### C DP, CP, LIP, TROPI, LIPRF, GLYHGB #### [facility] [address] [place] [address] Director Inbound Sales: Brandon Anaya MD Nitrite,Ur Negative Normal NEG [facility] Comment on above: Performed By: #### C DP, CP, LIP, TROPI, LIPRF, GLYHGB #### [facility] [address] [place] [address] Director Inbound Sales: Brandon Anaya MD pH (U) 8.5 [pH] High 5.0-8.0 [facility] Comment on above: Performed By: #### C DP, CP, LIP, TROPI, LIPRF, GLYHGB #### [address] [address] Director Inbound Sales: Brandon Anaya MD Protein Ql (U) Negative Normal NEG [facility] Comment on above: Performed By: #### C DP, CP, LIP, TROPI, LIPRF, GLYHGB #### [address] [address] Director Inbound Sales: Brandon Anaya MD RBC (U) [#/Vol] TOO NUMEROUS TO COUNT Normal 0-4 [facility] Comment on above: Result Comment: Refe rence range defined for non-centrifuged specimen. Performed By: #### C DP, CP, LIP, TROPI, LIPRF, GLYHGB #### [address] [address] Director Inbound Sales: Brandon Anaya MD Specific gravity (U) [Rel density] 1.011 Normal 1.005-1.030 [facility] Comment on above: Performed By: #### C DP, CP, LIP, TROPI, LIPRF, GLYHGB #### [facility] [address] [place] [address] Director Inbound Sales: Brandon Anaya MD Turbidity TURBID Abnormal CLEAR [facility] Comment on above: Performed By: #### C DP, CP, LIP, TROPI, LIPRF, GLYHGB #### [facility] [address] [place] [address] Director Inbound Sales: Brandon Anaya MD Urobilinogen,Ur Normal Normal NORM [facility] Comment on above: Performed By: #### C DP, CP, LIP, TROPI, LIPRF, GLYHGB #### [facility] [address] [place] [address] Director Inbound Sales: Brandon Anaya MD WBC (U) [#/Vol] 0 TO 2 Normal 0-5 [facility] Comment on above: Performed By: #### C DP, CP, LIP, TROPI, LIPRF, GLYHGB #### [facility] [address] [place] [address] Director Inbound Sales: Brandon Anaya MD Amorphous sediment LM Ql (Urine sed) NOT REPORTED Normal [facility] Comment on above: Performed By: #### C DP, CP, LIP, TROPI, LIPRF, GLYHGB #### [address] [address] Director Inbound Sales: Brandon Anaya MD Bacteria LM.HPF (Urine sed) [#/Area] NOT REPORTED Normal NONE [facility] Comment on above: Performed By: #### C DP, CP, LIP, TROPI, LIPRF, GLYHGB #### [facility] [address] [place] [address] Director Inbound Sales: Brandon Anaya MD Crystals LM Nom (Urine sed) NOT REPORTED Normal [facility] Comment on above: Performed By: #### C DP, CP, LIP, TROPI, LIPRF, GLYHGB #### [facility] [address] [place] [address] Director Inbound Sales: Brandon Anaya MD Epithelial, Renal NOT REPORTED Normal 0 [facility] Comment on above: Performed By: #### C DP, CP, LIP, TROPI, LIPRF, GLYHGB #### [facility] [address] [place] [address] Director Inbound Sales: Brandon Anaya MD Mucus Strands NOT REPORTED Normal NONE [facility] Comment on above: Performed By: #### C DP, CP, LIP, TROPI, LIPRF, GLYHGB #### [facility] [address] [place] [address] Director Inbound Sales: Brandon Anaya MD Other Observations NOT REPORTED Normal NREQ [facility] Comment on above: Performed By: #### C DP, CP, LIP, TROPI, LIPRF, GLYHGB #### [facility] [place] [address] Director Inbound Sales: Brandon Anaya MD Trichomonas NOT REPORTED Normal NONE [facility] Comment on above: Performed By: #### C DP, CP, LIP, TROPI, LIPRF, GLYHGB #### [facility] [address] [place] [address] Director Inbound Sales: Brandon Anaya MD Yeast LM Ql (Urine sed) NOT REPORTED Normal [facility] Comment on above: Performed By: #### C DP, CP, LIP, TROPI, LIPRF, GLYHGB #### [facility] [place] [address] Director Inbound Sales: Brandon Anaya MD RENAL ARTERIAL DUPLEX COM PLETEon 10-12-2019 [facility] Vascular Renal Procedure Patient Name ALEYDA Date of Study 10/12/2019 ZACHARY Date of 1945 Gender Female Age 74 year(s) Race Room Number 2015 Corporate ID [id number] # Patient Acct [id number] # MR # [id number] Fondant Cooker Celena Juarez, JACEK, RDMS Interpreting Jamison Galo Physician Referring Referring Physician DENYS MORRIS MD Nurse Practitioner Procedure Type of Study: Abdominal: Renal, Renal Artery Scan Bilateral. Patient Status:In Patient. Conclusions Summary Abdominal aortic aneurysm measuring 3.5 cm was noted. 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 Signature Electronically signed by Corrine Gal[facility]Inter[facility] physician) on 10/12/2019 07:54 PM Findings: Right Impression: Left Impression: Renal / [...] The average kidney length is 10.75 cm. [facility] [place], [place] Prieto, Mhpn Incoming Cardio Results From [facility] - 10/12/2019 7:54 PM EDT [facility] Vascular Renal Procedure Patient Name ALEYDA Date of Study 10/12/2019 ZACHARY Date of 1945 Gender Female Age 74 year(s) Race Room Number 2015 Corporate ID [id number] # Patient Acct [id number] # MR # [id number] Fondant Cooker Celena Juarez RVT, RDMS Interpreting Jamison Galo [...] The average kidney length is 10.75 cm. [facility] [place] XR CHEST PORTABLEon 10-12-19 20 [...] Argentina Guzmán MD 10/11/19 Final result Normal [facility] Basic Metab w/rfx MGon 10-10 (cont.) Normal [facility] Comment on above: Result Comment: Aver age GFR for 70 or more years old: 75 mL/min/1.73sq m Chronic Kidney Disease: <60 mL/min/1.73sq m Kidney failure: <15 mL/min/1.73sq m eGFR calculated using average adult body mass. Additional eGFR calculator available at: http://www.Mechanology/multiple_crcl_2012.htm Performed By: #### C DP, CP, LIP, TROPI, LIPRF, GLYHGB #### [facility] [address] [place] [address] Director Inbound Sales: Brandon Anaya MD Anion gap [Moles/Vol] 15 mmol/L Normal - [facility] Comment on above: Performed By: #### C DP, CP, LIP, TROPI, LIPRF, GLYHGB #### [facility] [place] [address] Director Inbound Sales: Brandon Anaya MD Calcium [Mass/Vol] 9.2 mg/dL Normal 8.6-10.4 [facility] [facility] Comment on above: Performed By: #### C DP, CP, LIP, TROPI, LIPRF, GLYHGB #### [address] [address] Director Inbound Sales: Brandon Anaya MD Chloride [Moles/Vol] 96 mmol/L Low 98-107 [facility] Comment on above: Performed By: #### C DP, CP, LIP, TROPI, LIPRF, GLYHGB #### [address] [address] Director Inbound Sales: Brandon Anaya MD CO2 [Moles/Vol] 24 mmol/L Normal 20-31 [facility] Comment on above: Performed By: #### C DP, CP, LIP, TROPI, LIPRF, GLYHGB #### [address] [address] Director Inbound Sales: Brandon Anaya MD Creatinine [Mass/Vol] 0.55 mg/dL Normal 0.50-0.90 [facility] Comment on above: Performed By: #### C DP, CP, LIP, TROPI, LIPRF, GLYHGB #### [address] [address] Director Inbound Sales: Brandon Anaya MD GFR, Amer >60 Normal >60 [facility] Comment on above: Performed By: #### C DP, CP, LIP, TROPI, LIPRF, GLYHGB #### [address] [address] Director Inbound Sales: Brandon Anaya MD GFR,non Amer >60 Normal >60 [facility] Comment on above: Performed By: #### C DP, CP, LIP, TROPI, LIPRF, GLYHGB #### [address] [address] Director Inbound Sales: Brandon Anaya MD Glucose [Mass/Vol] 146 mg/dL High 70-99 [facility] Comment on above: Performed By: #### C DP, CP, LIP, TROPI, LIPRF, GLYHGB #### [address] [address] Director Inbound Sales: Brandon Anaya MD Potassium [Moles/Vol] 3.6 mmol/L Low 3.7-5.3 [facility] Comment on above: Performed By: #### C DP, CP, LIP, TROPI, LIPRF, GLYHGB #### [address] [address] Director Inbound Sales: Brandon Anaya MD Sodium [Moles/Vol] 135 mmol/L Normal 135-144 [facility] Comment on above: Performed By: #### C DP, CP, LIP, TROPI, LIPRF, GLYHGB #### [address] [address] Director Inbound Sales: Brandon Anaya MD Urea nitrogen [Mass/Vol] 13 mg/dL Normal 8-23 [facility] Comment on above: Performed By: #### C DP, CP, LIP, TROPI, LIPRF, GLYHGB #### [address] [address] Director Inbound Sales: Brandon Anaya MD BUN/CRE Ratio NOT REPORTED Normal - [facility] Comment on above: Performed By: #### C DP, CP, LIP, TROPI, LIPRF, GLYHGB #### [address] [address] Director Inbound Sales: Brandon Anaya MD Staging: NOT REPORTED Normal [facility] Comment on above: Performed By: #### C DP, CP, LIP, TROPI, LIPRF, GLYHGB #### [address] [address] Director Inbound Sales: Brandon Anaya MD Basic Metabolic Panel w/ Ref kervin to MGon 10-11-2019 Anion gap [Moles/Vol] 15 mmol/L 9 - 17 mmol/L [place] Bun/Cre Ratio NOT REPORTED [place] Calcium [Mass/Vol] 9.2 mg/dL 8.6 - 10. 4 mg/dL [place] Chloride [Moles/Vol] 96 mmol/L Low 98 - 10 7 mmol/L [place] CO2 [Moles/Vol] 24 mmol/L 20 - 31 mmol/L [place] Creatinine [Mass/Vol] 0.55 mg/dL 0.5 - 0.9 mg/dL [place] GFR >60 >60 mL/min [place] GFR Non- >60 >60 mL/min [place] GFR/1.73 sq M predicted among non-blacks MDRD (S/P/Bld) [Vol rate/Area] NOT REPORTED [place] GFR/1.73 sq M predicted among non-blacks MDRD (S/P/Bld) [Vol rate/Area] [place] Comment on above: Average GFR for 70 o r more years old: 75 mL/min/1.73sq m Chronic Kidney Disease: <60 mL/min/1.73sq m Kidney failure: <15 mL/min/1.73sq m eGFR calculated using average adult body mass. Additional eGFR calculator available at: http://www.Mechanology/multiple_crcl_2012.htm Glucose [Mass/Vol] 146 mg/dL High 70 - 99 mg/dL [place] Interpretation and review of laboratory results Abnormal [place] Potassium [Moles/Vol] 3.6 mmol/L Low 3.7 - 5.3 mmol/L [place] Sodium [Moles/Vol] 135 mmol/L 135 - 144 mmol/L [place] Urea nitrogen [Mass/Vol] 13 mg/dL 8 - 23 mg/dL [place] CBC auto differentialon 09-24 Basophils (Bld) [#/Vol] 0.03 10*3/uL [place] Basophils/100 WBC (Bld) 0 % 0 - 2 % [place] Differential Type NOT REPORTED [place] Eosinophils (Bld) [#/Vol] 10*3/uL [place] Eosinophils/100 WBC (Bld) 0 % Low 1 - 4 % [place] Erythrocyte distribution width (RBC) [Ratio] 14.3 % 11.8 - 14.4 % [place] Hematocrit (Bld) [Volume fraction] 43.6 % 36.3 - 47.1 % [place] Hemoglobin (Bld) [Mass/Vol] 13.7 g/dL 11.9 - 15.1 g/dL [place] Immature granulocytes (Bld) [#/Vol] 1 % High 0 [place] Immature granulocytes (Bld) [#/Vol] 0.07 10*3/uL [place] Interpretation and review of laboratory results Abnormal [place] Lymphocytes (Bld) [#/Vol] 0.92 10*3/uL Low [place] Lymphocytes/100 WBC (Bld) 14 % Low 24 - 43 % [place] MCH (RBC) [Entitic mass] 29.1 pg 25.2 - 33.5 pg [place] MCHC (RBC) [Mass/Vol] 31.4 g/dL 28.4 - 34.8 g/dL [place] MCV (RBC) [Entitic vol] 92.6 fL 82.6 - 102.9 fL [place] Monocytes (Bld) [#/Vol] 0.07 10*3/uL Low [place] Monocytes/100 WBC (Bld) 1 % Low 3 - 12 % [place] Platelet mean volume (Bld) [Entitic vol] 10.6 fL 8.1 - 13.5 fL [place] Platelets (Bld) [#/Vol] NOT REPORTED [place] Platelets (Bld) [#/Vol] 196 10*3/uL [place] RBC (Bld) [#/Vol] 4.71 10*6/uL 3.95 - 5.1 1 m/uL [place] RBC morphology finding Nom (Bld) NOT REPORTED [place] Segmented neutrophils/100 WBC (Bld) 84 % High 36 - 65 % [place] Segs Absolute 5.67 [place] WBC (Bld) [#/Vol] 0.0 10*3/uL 0.0 per 10 0 WBC [place] WBC (Bld) [#/Vol] 6.8 10*3/uL [place] WBC Morphology NOT REPORTED [place] CBC with Diffon 10-11-2019 Abs. Basophil 0.03 k/uL Normal 0.00-0.20 [facility] Comment on above: Performed By: #### C DP, CP, LIP, TROPI, LIPRF, GLYHGB #### [facility] [address] [place] [address] Director Inbound Sales: Brandon Anaya MD Abs.Imm.Granulocyte 0.07 k/uL Normal 0.00-0.30 [facility] Comment on above: Performed By: #### C DP, CP, LIP, TROPI, LIPRF, GLYHGB #### [facility] [address] [place] [address] Director Inbound Sales: Brandon Anaya MD Abs.Neutrophil (Seg) 5.67 k/uL Normal 1.50-8.10 [facility] Comment on above: Performed By: #### C DP, CP, LIP, TROPI, LIPRF, GLYHGB #### [facility] [address] [place] [address] Director Inbound Sales: Brandon Anaya MD Basophils/100 WBC (Bld) 0 % Normal 0-2 [facility] Comment on above: Performed By: #### C DP, CP, LIP, TROPI, LIPRF, GLYHGB #### [facility] [address] [place] [id number] Director Inbound Sales: Brandon Anaya MD Eosinophils (Bld) [#/Vol] 10*3/uL Normal 0.00-0.44 [facility] Comment on above: Performed By: #### C DP, CP, LIP, TROPI, LIPRF, GLYHGB #### [facility] [address] [place] [address] Director Inbound Sales: Brandon Anaya MD Eosinophils/100 WBC (Bld) 0 % Low 1-4 [facility] Comment on above: Performed By: #### C DP, CP, LIP, TROPI, LIPRF, GLYHGB #### [place] [address] Director Inbound Sales: Brandon Anaya MD Erythrocyte distribution width (RBC) [Ratio] 14.3 % Normal 11.8-14.4 [facility] Comment on above: Performed By: #### C DP, CP, LIP, TROPI, LIPRF, GLYHGB #### [place] [address] Director Inbound Sales: Brandon Anaya MD Hematocrit (Bld) [Volume fraction] 43.6 % Normal 36.3-47.1 [facility] Comment on above: Performed By: #### C DP, CP, LIP, TROPI, LIPRF, GLYHGB #### [address] [address] Director Inbound Sales: Brandon Anaya MD Hemoglobin (Bld) [Mass/Vol] 13.7 g/dL Normal 11.9-15.1 [facility] Comment on above: Performed By: #### C DP, CP, LIP, TROPI, LIPRF, GLYHGB #### [facility] [address] [place] [address] Director Inbound Sales: Brandon Anaya MD Immature granulocytes (Bld) [#/Vol] 1 % High 0 [facility] Comment on above: Performed By: #### C DP, CP, LIP, TROPI, LIPRF, GLYHGB #### [address] [address] Director Inbound Sales: Brandon Anaya MD Lymphocytes (Bld) [#/Vol] 0.92 10*3/uL Low 1.10-3.70 [facility] Comment on above: Performed By: #### C DP, CP, LIP, TROPI, LIPRF, GLYHGB #### [address] [address] Director Inbound Sales: Brandon Anaya MD Lymphocytes/100 WBC (Bld) 14 % Low 24-43 [facility] Comment on above: Performed By: #### C DP, CP, LIP, TROPI, LIPRF, GLYHGB #### [address] [address] Director Inbound Sales: Brandon Anaya MD MCH (RBC) [Entitic mass] 29.1 pg Normal 25.2-33.5 [facility] Comment on above: Performed By: #### C DP, CP, LIP, TROPI, LIPRF, GLYHGB #### [place] [address] Director Inbound Sales: Brandon Anaya MD MCHC (RBC) [Mass/Vol] 31.4 g/dL Normal 28.4-34.8 [facility] Comment on above: Performed By: #### C DP, CP, LIP, TROPI, LIPRF, GLYHGB #### [address] [address] Director Inbound Sales: Brandon Anaya MD MCV (RBC) [Entitic vol] 92.6 fL Normal 82.6-102.9 [facility] Comment on above: Performed By: #### C DP, CP, LIP, TROPI, LIPRF, GLYHGB #### [address] [address] Director Inbound Sales: Brandon Anaya MD Monocytes (Bld) [#/Vol] 0.07 10*3/uL Low 0.10-1.20 [facility] Comment on above: Performed By: #### C DP, CP, LIP, TROPI, LIPRF, GLYHGB #### [address] [address] Director Inbound Sales: Brandon Anaya MD Monocytes/100 WBC (Bld) 1 % Low 3-12 [facility] Comment on above: Performed By: #### C DP, CP, LIP, TROPI, LIPRF, GLYHGB #### [place] [address] Director Inbound Sales: Brandon Anaya MD Neutrophil (Seg) 84 % High 36-65 [facility] Comment on above: Performed By: #### C DP, CP, LIP, TROPI, LIPRF, GLYHGB #### [place] [address] Director Inbound Sales: Brandon Anaya MD NRBC Automated 0.0 per 100 WBC Normal 0.0 [facility] Comment on above: Performed By: #### C DP, CP, LIP, TROPI, LIPRF, GLYHGB #### [place] [address] Director Inbound Sales: Brandon Anaya MD Platelet mean volume (Bld) [Entitic vol] 10.6 fL Normal 8.1-13.5 [facility] Comment on above: Performed By: #### C DP, CP, LIP, TROPI, LIPRF, GLYHGB #### [place] [address] Director Inbound Sales: Brandon Anaya MD Platelets (Bld) [#/Vol] 196 10*3/uL Normal 138-453 [facility] Comment on above: Performed By: #### C DP, CP, LIP, TROPI, LIPRF, GLYHGB #### [address] [address] Director Inbound Sales: Brandon Anaya MD RBC (Bld) [#/Vol] 4.71 10*6/uL Normal 3.95-5.11 [facility] Comment on above: Performed By: #### C DP, CP, LIP, TROPI, LIPRF, GLYHGB #### [address] [address] Director Inbound Sales: Brandon Anaya MD WBC (Bld) [#/Vol] 6.8 10*3/uL Normal 3.5-11.3 [facility] Comment on above: Performed By: #### C DP, CP, LIP, TROPI, LIPRF, GLYHGB #### [address] [address] Director Inbound Sales: Brandon Anaya MD Auto Diff Performed NOT REPORTED Normal [facility] Comment on above: Performed By: #### C DP, CP, LIP, TROPI, LIPRF, GLYHGB #### [address] [address] Director Inbound Sales: Brandon Anaya MD Platelets (Bld) [#/Vol] NOT REPORTED Normal [facility] Comment on above: Performed By: #### C DP, CP, LIP, TROPI, LIPRF, GLYHGB #### [address] [address] Director Inbound Sales: Brandon Anaya MD RBC morphology finding Nom (Bld) NOT REPORTED Normal [facility] Comment on above: Performed By: #### C DP, CP, LIP, TROPI, LIPRF, GLYHGB #### [address] [address] Director Inbound Sales: Brandon Anaya MD WBC Morphology NOT REPORTED Normal [facility] Comment on above: Performed By: #### C DP, CP, LIP, TROPI, LIPRF, GLYHGB #### [facility] [address] [id number] Director Inbound Sales: Brandon Anaya MD MRI BRAIN W WO [...] Chaitanya Sawyer MD 10/11/19 Final result Normal [facility] [place], Mhpn Incoming Radiant Results From [facility]acs - 10/11/2019 3:07 PM EDT EXAMINATION: MRI [...] Small meningioma over the right frontal lobe. [place] Volume loss with chr onic white matter microvascular ischemic change. Small meningioma over the right frontal lobe. [place] EXAMINATION: MRI OF THE BRAIN WITHOUT [...] The soft tissues demonstrate no acute abnormality. [facility] [employer] [place] POC Glucose Fingerstickon Glucose [Mass/Vol] 121 mg/dL High 65 - 105 mg/dL [place] Interpretation and review of laboratory results Abnormal [place] Glucose [Mass/Vol] 171 mg/dL High 65 - 105 mg/dL [place] Interpretation and review of laboratory results Abnormal [place] Glucose [Mass/Vol] 127 mg/dL High 65 - 105 mg/dL [place] Interpretation and review of laboratory results Abnormal [place] Glucose [Mass/Vol] 145 mg/dL High 65 - 105 mg/dL [place] Interpretation and review of laboratory results Abnormal [place] XR CHEST PORTABLEon 10-11-19 EXAMINATION: ONE XRA Y VIEW OF THE CHEST 10/11/2019 10:45 pm COMPARISON: 06/27/2017 HISTORY: ORDERING SYSTEM PROVIDED HISTORY: evaluate TECHNOLOGIST PROVIDED HISTORY: evaluate Reason for Exam: Upright portable Acuity: Unknown Type of Exam: Unknown FINDINGS: Cardiomediastinal silhouette is unchanged in size. Aortic atherosclerosis. No pulmonary consolidation, pleural effusion, or pneumothorax. No acute osseous abnormality. [place], [place] Incoming Radiant Results From [facility] - 10/11/2019 11:49 PM EDT EXAMINATION: ONE XRAY VIEW OF THE CHEST 10/11/2019 10:45 pm COMPARISON: 06/27/2017 HISTORY: ORDERING SYSTEM PROVIDED HISTORY: evaluate TECHNOLOGIST PROVIDED HISTORY: evaluate Reason for Exam: Upright portable Acuity: Unknown Type of Exam: Unknown FINDINGS: Cardiomediastinal silhouette is unchanged in size. Aortic atherosclerosis. No pulmonary consolidation, pleural effusion, or pneumothorax. No acute osseous abnormality. IMPRESSION: No acute cardiopulmonary abnormality. [place] No acute cardiopulmo nary abnormality. [place] Basic Metab w/rfx MGon 10-09 (cont.) Normal [facility] Comment on above: Result Comment: Aver age GFR for 70 or more years old: 75 mL/min/1.73sq m Chronic Kidney Disease: <60 mL/min/1.73sq m Kidney failure: <15 mL/min/1.73sq m eGFR calculated using average adult body mass. Additional eGFR calculator available at: http://www.[employer].Profitably/multiple_crcl_2011.htm Performed By: #### C DP, CP, LIP, TROPI, LIPRF, GLYHGB #### [facility] [address] [facility] [place] [address] Director Inbound Sales: Brandon Anaya MD Anion gap [Moles/Vol] 10 mmol/L Normal 9-17 [facility] Comment on above: Performed By: #### C DP, CP, LIP, TROPI, LIPRF, GLYHGB #### [facility] [address] [place] [address] Director Inbound Sales: Brandon Anaya MD Calcium [Mass/Vol] 9.0 mg/dL Normal 8.6-10.4 [facility] Comment on above: Performed By: #### C DP, CP, LIP, TROPI, LIPRF, GLYHGB #### [facility] [address] [place] [address] Director Inbound Sales: Brandon Anaya MD Chloride [Moles/Vol] 97 mmol/L Low 98-107 [facility] Comment on above: Performed By: #### C DP, CP, LIP, TROPI, LIPRF, GLYHGB #### [facility] [address] [place] [address] Director Inbound Sales: Brandon Anaya MD CO2 [Moles/Vol] 25 mmol/L Normal 20-31 [facility] Comment on above: Performed By: #### C DP, CP, LIP, TROPI, LIPRF, GLYHGB #### [facility] [address] [place] [address] Director Inbound Sales: Brandon Anaya MD Creatinine [Mass/Vol] 0.50 mg/dL Normal 0.50-0.90 [facility] Comment on above: Performed By: #### C DP, CP, LIP, TROPI, LIPRF, GLYHGB #### [facility] [address] [place] [address] Director Inbound Sales: Brandon Anaya MD GFR, Amer >60 Normal >60 [facility] Comment on above: Performed By: #### C DP, CP, LIP, TROPI, LIPRF, GLYHGB #### [facility] [address] [place] [address] Director Inbound Sales: Brandon Anaya MD GFR,non Amer >60 Normal >60 [facility] Comment on above: Performed By: #### C DP, CP, LIP, TROPI, LIPRF, GLYHGB #### [facility] [address] [place] [address] Director Inbound Sales: Brandon Anaya MD Glucose [Mass/Vol] 123 mg/dL High 70-99 [facility] Comment on above: Performed By: #### C DP, CP, LIP, TROPI, LIPRF, GLYHGB #### [address] [address] Director Inbound Sales: Brandon Anaya MD Potassium [Moles/Vol] 3.5 mmol/L Low 3.7-5.3 [facility] Comment on above: Performed By: #### C DP, CP, LIP, TROPI, LIPRF, GLYHGB #### [address] [address] Director Inbound Sales: Brandon Anaya MD Sodium [Moles/Vol] 132 mmol/L Low 135-144 [facility] Comment on above: Performed By: #### C DP, CP, LIP, TROPI, LIPRF, GLYHGB #### [address] [address] Director Inbound Sales: Brandon Anaya MD Urea nitrogen [Mass/Vol] 14 mg/dL Normal 8-23 [facility] Comment on above: Performed By: #### C DP, CP, LIP, TROPI, LIPRF, GLYHGB #### [address] [address] Director Inbound Sales: Brandon Anaya MD BUN/CRE Ratio NOT REPORTED Normal 9-20 [facility] Comment on above: Performed By: #### C DP, CP, LIP, TROPI, LIPRF, GLYHGB #### [facility] [address] [place] [address] Director Inbound Sales: Brandon Anaya MD Staging: NOT REPORTED Normal [facility] Comment on above: Performed By: #### C DP, CP, LIP, TROPI, LIPRF, GLYHGB #### [facility] [address] [place], [place] [phone] Director Inbound Sales: Brandon Anaya MD Basic Metabolic Panel w/ Ref kervin to MGon 10-10-2019 Anion gap [Moles/Vol] 10 mmol/L 9 - 17 mmol/L [place] Bun/Cre Ratio NOT REPORTED [place] Calcium [Mass/Vol] 9.0 mg/dL 8.6 - 10. 4 mg/dL [place] Chloride [Moles/Vol] 97 mmol/L Low 98 - 10 7 mmol/L [place] CO2 [Moles/Vol] 25 mmol/L 20 - 31 mmol/L [place] Creatinine [Mass/Vol] 0.5 mg/dL 0.5 - 0.9 mg/dL [place] GFR >60 >60 mL/min [place] GFR Non- >60 >60 mL/min [place] GFR/1.73 sq M predicted among non-blacks MDRD (S/P/Bld) [Vol rate/Area] [place] Comment on above: Average GFR for 70 o r more years old: 75 mL/min/1.73sq m Chronic Kidney Disease: <60 mL/min/1.73sq m Kidney failure: <15 mL/min/1.73sq m eGFR calculated using average adult body mass. Additional eGFR calculator available at: http://www.[employer].Profitably/multiple_crcl_2012.htm GFR/1.73 sq M predicted among non-blacks MDRD (S/P/Bld) [Vol rate/Area] NOT REPORTED [place] Glucose [Mass/Vol] 123 mg/dL High 70 - 99 mg/dL [place] Interpretation and review of laboratory results Abnormal [place] Potassium [Moles/Vol] 3.5 mmol/L Low 3.7 - 5.3 mmol/L [place] Sodium [Moles/Vol] 132 mmol/L Low 135 - 144 mmol/L [place] Urea nitrogen [Mass/Vol] 14 mg/dL 8 - 23 mg/dL [place] C-REACTIVE PROTEINon 020 CRP [Mass/Vol] 6.3 mg/L High 0 - 5 mg/L [place] Interpretation and review of laboratory results Abnormal [place] C-Reactive Proteinon 020 CRP [Mass/Vol] 6.3 mg/L High 0.0-5.0 [facility] Comment on above: Performed By: #### C DP, CP, LIP, TROPI, LIPRF, GLYHGB #### [id number] [place], [place] [phone] Director Inbound Sales: Brandon Anaya MD CBC auto differentialon 09-24 Basophils (Bld) [#/Vol] 0.06 10*3/uL [place] Basophils/100 WBC (Bld) 1 % 0 - 2 % [place] Differential Type NOT REPORTED [place] Eosinophils (Bld) [#/Vol] 0.07 10*3/uL [place] Eosinophils/100 WBC (Bld) 1 % 1 - 4 % [place] Erythrocyte distribution width (RBC) [Ratio] 14.5 % High 11.8 - 14.4 % [place] Hematocrit (Bld) [Volume fraction] 42.7 % 36.3 - 47.1 % [place] Hemoglobin (Bld) [Mass/Vol] 13.5 g/dL 11.9 - 15.1 g/dL [place] Immature granulocytes (Bld) [#/Vol] 0.05 10*3/uL [place] Immature granulocytes (Bld) [#/Vol] 1 % High 0 [place] Interpretation and review of laboratory results Abnormal [place] Lymphocytes (Bld) [#/Vol] 1.05 10*3/uL Low [place] Lymphocytes/100 WBC (Bld) 14 % Low 24 - 43 % [place] MCH (RBC) [Entitic mass] 29.8 pg 25.2 - 33.5 pg [place] MCHC (RBC) [Mass/Vol] 31.6 g/dL 28.4 - 34.8 g/dL [place] MCV (RBC) [Entitic vol] 94.3 fL 82.6 - 102.9 fL [place] Monocytes (Bld) [#/Vol] 0.65 10*3/uL [place] Monocytes/100 WBC (Bld) 9 % 3 - 12 % [place] Platelet mean volume (Bld) [Entitic vol] 10.9 fL 8.1 - 13.5 fL [place] Platelets (Bld) [#/Vol] 170 10*3/uL [place] Platelets (Bld) [#/Vol] NOT REPORTED [place] RBC (Bld) [#/Vol] 4.53 10*6/uL 3.95 - 5.1 1 m/uL [place] RBC morphology finding Nom (Bld) ANISOCYTOSIS PRESENT [place] Segmented neutrophils/100 WBC (Bld) 74 % High 36 - 65 % [place] Segs Absolute 5.55 [place] WBC (Bld) [#/Vol] 0.0 10*3/uL 0.0 per 10 0 WBC [place] WBC (Bld) [#/Vol] 7.4 10*3/uL [place] WBC Morphology NOT REPORTED [place] CBC with Diffon 10-10-2019 Abs. Basophil 0.06 k/uL Normal 0.00-0.20 [facility] Comment on above: Performed By: #### C DP, CP, LIP, TROPI, LIPRF, GLYHGB #### [employer] [address] [place] [address] Director Inbound Sales: Brandon Anaya MD Abs.Imm.Granulocyte 0.05 k/uL Normal 0.00-0.30 [facility] Comment on above: Performed By: #### C DP, CP, LIP, TROPI, LIPRF, GLYHGB #### [place] [address] Director Inbound Sales: Brandon Anaya MD Abs.Neutrophil (Seg) 5.55 k/uL Normal 1.50-8.10 [facility] Comment on above: Performed By: #### C DP, CP, LIP, TROPI, LIPRF, GLYHGB #### [place] [address] Director Inbound Sales: Brandon Anaya MD Basophils/100 WBC (Bld) 1 % Normal 0-2 [facility] Comment on above: Performed By: #### C DP, CP, LIP, TROPI, LIPRF, GLYHGB #### [place] [address] Director Inbound Sales: Brandon Anaya MD Eosinophils (Bld) [#/Vol] 0.07 10*3/uL Normal 0.00-0.44 [facility] Comment on above: Performed By: #### C DP, CP, LIP, TROPI, LIPRF, GLYHGB #### [place] [address] Director Inbound Sales: Brandon Anaya MD Eosinophils/100 WBC (Bld) 1 % Normal 1-4 [facility] Comment on above: Performed By: #### C DP, CP, LIP, TROPI, LIPRF, GLYHGB #### [place] [address] Director Inbound Sales: Brandon Anaya MD Erythrocyte distribution width (RBC) [Ratio] 14.5 % High 11.8-14.4 [facility] Comment on above: Performed By: #### C DP, CP, LIP, TROPI, LIPRF, GLYHGB #### [address] [address] Director Inbound Sales: Brandon Anaya MD Hematocrit (Bld) [Volume fraction] 42.7 % Normal 36.3-47.1 [facility] Comment on above: Performed By: #### C DP, CP, LIP, TROPI, LIPRF, GLYHGB #### [address] [address] Director Inbound Sales: Brandon Anaya MD Hemoglobin (Bld) [Mass/Vol] 13.5 g/dL Normal 11.9-15.1 [facility] Comment on above: Performed By: #### C DP, CP, LIP, TROPI, LIPRF, GLYHGB #### [address] [address] Director Inbound Sales: Brandon Anaya MD Immature granulocytes (Bld) [#/Vol] 1 % High 0 [facility] Comment on above: Performed By: #### C DP, CP, LIP, TROPI, LIPRF, GLYHGB #### [address] [address] Director Inbound Sales: Brandon Anaya MD Lymphocytes (Bld) [#/Vol] 1.05 10*3/uL Low 1.10-3.70 [facility] Comment on above: Performed By: #### C DP, CP, LIP, TROPI, LIPRF, GLYHGB #### [address] [address] Director Inbound Sales: Brandon Anaya MD Lymphocytes/100 WBC (Bld) 14 % Low 24-43 [facility] Comment on above: Performed By: #### C DP, CP, LIP, TROPI, LIPRF, GLYHGB #### [facility] [employer] [place] [address] Director Inbound Sales: Brandon Anaya MD MCH (RBC) [Entitic mass] 29.8 pg Normal 25.2-33.5 [facility] Comment on above: Performed By: #### C DP, CP, LIP, TROPI, LIPRF, GLYHGB #### [address] [address] Director Inbound Sales: Brandon Anaya MD MCHC (RBC) [Mass/Vol] 31.6 g/dL Normal 28.4-34.8 [facility] Comment on above: Performed By: #### C DP, CP, LIP, TROPI, LIPRF, GLYHGB #### [address] [address] Director Inbound Sales: Brandon Anaya MD MCV (RBC) [Entitic vol] 94.3 fL Normal 82.6-102.9 [facility] Comment on above: Performed By: #### C DP, CP, LIP, TROPI, LIPRF, GLYHGB #### [place] [address] Director Inbound Sales: Brandon Anaya MD Monocytes (Bld) [#/Vol] 0.65 10*3/uL Normal 0.10-1.20 [facility] Comment on above: Performed By: #### C DP, CP, LIP, TROPI, LIPRF, GLYHGB #### [address] [address] Director Inbound Sales: Brandon Anaya MD Monocytes/100 WBC (Bld) 9 % Normal 3-12 [facility] Comment on above: Performed By: #### C DP, CP, LIP, TROPI, LIPRF, GLYHGB #### [address] [address] Director Inbound Sales: Brandon Anaya MD Neutrophil (Seg) 74 % High 36-65 [facility] Comment on above: Performed By: #### C DP, CP, LIP, TROPI, LIPRF, GLYHGB #### [address] [address] Director Inbound Sales: Brandon Anaya MD NRBC Automated 0.0 per 100 WBC Normal 0.0 [facility] Comment on above: Performed By: #### C DP, CP, LIP, TROPI, LIPRF, GLYHGB #### [address] [address] Director Inbound Sales: Brandon Anaya MD Platelet mean volume (Bld) [Entitic vol] 10.9 fL Normal 8.1-13.5 [facility] Comment on above: Performed By: #### C DP, CP, LIP, TROPI, LIPRF, GLYHGB #### [address] [address] Director Inbound Sales: Brandon Anaya MD Platelets (Bld) [#/Vol] 170 10*3/uL Normal 138-453 [facility] Comment on above: Performed By: #### C DP, CP, LIP, TROPI, LIPRF, GLYHGB #### [address] [address] Director Inbound Sales: Brandon Anaya MD RBC (Bld) [#/Vol] 4.53 10*6/uL Normal 3.95-5.11 [facility] Comment on above: Performed By: #### C DP, CP, LIP, TROPI, LIPRF, GLYHGB #### [address] [address] Director Inbound Sales: Brandon Anaya MD RBC morphology finding Nom (Bld) ANISOCYTOSIS PRESENT Normal [facility] Comment on above: Performed By: #### C DP, CP, LIP, TROPI, LIPRF, GLYHGB #### [address] [address] Director Inbound Sales: Brandon Anaya MD WBC (Bld) [#/Vol] 7.4 10*3/uL Normal 3.5-11.3 [facility] Comment on above: Performed By: #### C DP, CP, LIP, TROPI, LIPRF, GLYHGB #### [address] [address] Director Inbound Sales: Brandon Anaya MD Auto Diff Performed NOT REPORTED Normal [facility] Comment on above: Performed By: #### C DP, CP, LIP, TROPI, LIPRF, GLYHGB #### [address] [address] Director Inbound Sales: Brandon Anaya MD Platelets (Bld) [#/Vol] NOT REPORTED Normal [facility] Comment on above: Performed By: #### C DP, CP, LIP, TROPI, LIPRF, GLYHGB #### [address] [address] Director Inbound Sales: Brandon Anaya MD WBC Morphology NOT REPORTED Normal [facility] Comment on above: Performed By: #### C DP, CP, LIP, TROPI, LIPRF, GLYHGB #### [address] [address] Director Inbound Sales: Brandon Anaya MD CT HEAD WO CONTRASTon [...] Naga Browning MD 10/10/19 Final result Normal [facility] 1. No acute intracra nial abnormality. 2. Mild chronic white matter microvascular ischemic changes. [place], [place] EXAMINATION: CT OF T HE HEAD [...] of the visualized skull or soft tissues. [place], [place] Prieto, pn Incoming Radiant Results From [facility] - 10/10/2019 5:31 PM EDT EXAMINATION: CT [...] Mild chronic white matter microvascular ischemic changes. [place] CTA HEAD NECK W CONTRASTon 0 [...] Initial FINDINGS: CTA NECK: AORTIC ARCH/ARCH VESSELS: [id number] atherosclerotic plaque at the arch arch and [...] Naga Browning MD 10/10/19 Final result Normal [facility] EXAMINATION: CTA OF THE HEAD AND NECK [...] Initial FINDINGS: CTA NECK: AORTIC ARCH/ARCH VESSELS: [id number] atherosclerotic plaque at the arch arch and [...] fluid collection. The salmeron-white differentiation is maintained. [facility] [place] 1. No acute arterial abnormality or hemodynamically significant arterial stenosis in the head or neck. 2. No intracranial aneurysm. [place], [place] Prieto, Mhpn Incoming Radiant Results From [facility] - 10/10/2019 5:36 PM EDT EXAMINATION: CTA [...] Initial FINDINGS: CTA NECK: AORTIC ARCH/ARCH VESSELS: [id number] atherosclerotic plaque at the arch arch and [...] head or neck. 2. No intracranial aneurysm. [place] Hemoglobin A1Con 10-10-2019 HbA1c (Bld) [Mass fraction] 111 mg/dL Normal [facility] Comment on above: Result Comment: The ADA and AACC recommend providing the estimated average glucose result to permit better patient understanding of their HBA1c result. Performed By: #### C DP, CP, LIP, TROPI, LIPRF, GLYHGB #### [facility] [place], [place] [id number] Director Inbound Sales: Brandon Anaya MD HbA1c (Bld) [Mass fraction] 5.5 % Normal 4.0-6.0 [facility] Comment on above: Performed By: #### C DP, CP, LIP, TROPI, LIPRF, GLYHGB #### [employer] [address] [place] [address] [id number] Director Inbound Sales: Brandon Anaya MD Glucose [Mass/Vol] 111 mg/dL [place] Comment on above: The ADA and AACC rec ommend providing the estimated average glucose result to permit better patient understanding of their HBA1c result. HbA1c (Bld) [Mass fraction] 5.5 % 4 - 6 % [place] LACTIC ACID, WHOLE BLOODon 0 10-10-2019 Lactic Acid, Whole Blood 1.0 mmol/L 0.7 - 2.1 mmol/L [place] Lactic Acid,Whole Blon 10-09 Lactic Acid,Whole Bl 1.0 mmol/L Normal 0.7-2.1 [facility] Comment on above: Performed By: #### C DP, CP, LIP, TROPI, LIPRF, GLYHGB #### [facility] [address] [place], [place] [id number] Director Inbound Sales: Brandon Anaya MD Magnesiumon 10-10-2019 Magnesium [Mass/Vol] 2.1 mg/dL Normal 1.6-2.6 [facility] Comment on above: Performed By: #### C DP, CP, LIP, TROPI, LIPRF, GLYHGB #### [facility] [facility] [place] [address] Director Inbound Sales: Brandon Anaya MD Magnesium [Mass/Vol] 2.1 mg/dL 1.6 - 2 .6 mg/dL [facility] [place] Otheron 10-10-2019 1. Subtle sclerosis subjacent to the L2 and L3 superior endplates is age-indeterminate and could represent trabecular condensation associated with acute or subacute endplate fractures. MRI of the lumbar spine is recommended for further evaluation. 2. No acute osseous abnormality of the sacrum or coccyx. 3. Osteopenia. [place] Prieto, Mhpn Incoming Radiant Results From [facility] - 10/10/2019 8:19 PM EDT EXAMINATION: THREE [...] of the sacrum or coccyx. 3. Osteopenia. [place] EXAMINATION: THREE X RAY VIEWS OF [...] the urinary bladder. Atherosclerotic calcifications are present. [place] POC Glucose Fingerstickon Glucose [Mass/Vol] 159 mg/dL High 65 - 105 mg/dL [place] Interpretation and review of laboratory results Abnormal [place] Glucose [Mass/Vol] 186 mg/dL High 65 - 105 mg/dL [place] Interpretation and review of laboratory results Abnormal [place] Glucose [Mass/Vol] 135 mg/dL High 65 - 105 mg/dL [place] Interpretation and review of laboratory results Abnormal [place] Procalcitoninon 10-10-2019 Procalcitonin 0.15 ng/mL High <0.09 [facility] Comment on above: Result Comment: Suspected Sepsis: [...] entered into the Change in Procalcitonin Calculator (www.qfjoqf-oeh-wuhfaczedy.com) to determine the patient's Mortality Risk Prognosis In healthy neonates, plasma Procalcitonin (PCT) concentrations increase gradually after , reaching peak values at about 24 hours of age then decrease to normal values below 0.5 ng/mL by 48-72 hours of age. Performed By: #### C DP, CP, LIP, TROPI, LIPRF, GLYHGB #### [facility] [facility] [place] [address] Director Inbound Sales: Brandon Anaya MD Interpretation and review of laboratory results Abnormal [place] Procalcitonin 0.15 ng/mL High <0.09 [place] Comment on above: Suspected Sepsis: <0.50 [...] entered into the Change in Procalcitonin Calculator (www.jmnynv-jgk-lsjmazqgvt.com) to determine the patient's Mortality Risk Prognosis In healthy neonates, plasma Procalcitonin (PCT) concentrations increase gradually after , reaching peak values at about 24 hours of age then decrease to normal values below 0.5 ng/mL by 48-72 hours of age. Sedimentation Rateon 020 Sedimentation Rate 8 mm Normal 0-30 [facility] Comment on above: Performed By: #### C DP, CP, LIP, TROPI, LIPRF, GLYHGB #### [facility] [place] [address] Director Inbound Sales: Brandon Anaya MD Sed Rate 8 mm 0 - 30 mm [place] TSH w/reflex to FT4on 2019 TSH Qn 1.05 m[IU]/L Normal 0.30-5.00 [facility] Comment on above: Performed By: #### C DP, CP, LIP, TROPI, LIPRF, GLYHGB #### [facility] [place] [address] Director Inbound Sales: Brandon Anaya MD TSH with Reflexon 10-10-2019 TSH Qn 1.05 m[IU]/L [facility] [place], [place] XR LUMBAR SPINE (2-3 [...] Naga Browning MD 10/10/19 Final result Normal [facility] XR SACRUM COCCYX (MIN 2 VIEW S)on [...] Naga Browning MD 10/10/19 Final result Normal [facility] Beta Hydroxybutyrateon 10-08 Beta Hydroxybutyrate 0.09 mmol/L Normal 0.02-0.27 [facility] Comment on above: Performed By: #### T OSMAR #### [employer] [address] [place] [address] Director Inbound Sales: Brandon Anaya MD Beta-Hydroxybutyrateon 10-08 Beta-Hydroxybutyrate 0.09 mmol/L 0.02 - 0.27 mmol/L [place], [place] CBC WITH AUTO DIFFERENTIALon 10-09-2019 Basophils (Bld) [#/Vol] 0.03 10*3/uL [place] Basophils/100 WBC (Bld) 0 % 0 - 2 % [place] Differential Type NOT REPORTED [place] Eosinophils (Bld) [#/Vol] 10*3/uL [place] Eosinophils/100 WBC (Bld) 0 % Low 1 - 4 % [place] Erythrocyte distribution width (RBC) [Ratio] 14.2 % 11.8 - 14.4 % [place] Hematocrit (Bld) [Volume fraction] 44.6 % 36.3 - 47.1 % [place] Hemoglobin (Bld) [Mass/Vol] 14.2 g/dL 11.9 - 15.1 g/dL [place] Immature granulocytes (Bld) [#/Vol] 1 % High 0 [place] Immature granulocytes (Bld) [#/Vol] 0.06 10*3/uL [place] Interpretation and review of laboratory results Abnormal [place] Lymphocytes (Bld) [#/Vol] 0.97 10*3/uL Low [place] Lymphocytes/100 WBC (Bld) 13 % Low 24 - 43 % [place] MCH (RBC) [Entitic mass] 29.7 pg 25.2 - 33.5 pg [place] MCHC (RBC) [Mass/Vol] 31.8 g/dL 28.4 - 34.8 g/dL [place] MCV (RBC) [Entitic vol] 93.3 fL 82.6 - 102.9 fL [place] Monocytes (Bld) [#/Vol] 0.52 10*3/uL [place] Monocytes/100 WBC (Bld) 7 % 3 - 12 % [place] Platelet mean volume (Bld) [Entitic vol] 10.9 fL 8.1 - 13.5 fL [place] Platelets (Bld) [#/Vol] NOT REPORTED [place] Platelets (Bld) [#/Vol] 202 10*3/uL [place] RBC (Bld) [#/Vol] 4.78 10*6/uL 3.95 - 5.1 1 m/uL [place] RBC morphology finding Nom (Bld) NOT REPORTED [place] Segmented neutrophils/100 WBC (Bld) 79 % High 36 - 65 % [place] Segs Absolute 6.10 [place] WBC (Bld) [#/Vol] 0.0 10*3/uL 0.0 per 10 0 WBC [place] WBC (Bld) [#/Vol] 7.7 10*3/uL [place] WBC Morphology NOT REPORTED [place] CBC with Diffon 10-09-2019 Abs. Basophil 0.03 k/uL Normal 0.00-0.20 [facility] Comment on above: Performed By: #### C DP, CP, LIP, TROPI, LIPRF, GLYHGB #### [address] [address] Director Inbound Sales: Brandon Anaya MD Abs.Imm.Granulocyte 0.06 k/uL Normal 0.00-0.30 [facility] Comment on above: Performed By: #### C DP, CP, LIP, TROPI, LIPRF, GLYHGB #### [address] [address] Director Inbound Sales: Brandon Anaya MD Abs.Neutrophil (Seg) 6.10 k/uL Normal 1.50-8.10 [facility] Comment on above: Performed By: #### C DP, CP, LIP, TROPI, LIPRF, GLYHGB #### [address] [address] Director Inbound Sales: Brandon Anaya MD Basophils/100 WBC (Bld) 0 % Normal 0-2 [facility] Comment on above: Performed By: #### C DP, CP, LIP, TROPI, LIPRF, GLYHGB #### [address] [address] Director Inbound Sales: Brandon Anaya MD Eosinophils (Bld) [#/Vol] 10*3/uL Normal 0.00-0.44 [facility] Comment on above: Performed By: #### C DP, CP, LIP, TROPI, LIPRF, GLYHGB #### [address] [address] Director Inbound Sales: Brandon Anaya MD Eosinophils/100 WBC (Bld) 0 % Low 1-4 [facility] Comment on above: Performed By: #### C DP, CP, LIP, TROPI, LIPRF, GLYHGB #### [address] [address] Director Inbound Sales: Brandon Anaya MD Erythrocyte distribution width (RBC) [Ratio] 14.2 % Normal 11.8-14.4 [facility] Comment on above: Performed By: #### C DP, CP, LIP, TROPI, LIPRF, GLYHGB #### [address] [address] Director Inbound Sales: Brandon Anyaa MD Hematocrit (Bld) [Volume fraction] 44.6 % Normal 36.3-47.1 [facility] Comment on above: Performed By: #### C DP, CP, LIP, TROPI, LIPRF, GLYHGB #### [address] [address] Director Inbound Sales: Brandon Anaya MD Hemoglobin (Bld) [Mass/Vol] 14.2 g/dL Normal 11.9-15.1 [facility] Comment on above: Performed By: #### C DP, CP, LIP, TROPI, LIPRF, GLYHGB #### [address] [address] Director Inbound Sales: Brandon Anaya MD Immature granulocytes (Bld) [#/Vol] 1 % High 0 [facility] Comment on above: Performed By: #### C DP, CP, LIP, TROPI, LIPRF, GLYHGB #### [address] [address] Director Inbound Sales: Brandon Anaya MD Lymphocytes (Bld) [#/Vol] 0.97 10*3/uL Low 1.10-3.70 [facility] Comment on above: Performed By: #### C DP, CP, LIP, TROPI, LIPRF, GLYHGB #### [facility] [place] [address] Director Inbound Sales: Brandon Anaya MD Lymphocytes/100 WBC (Bld) 13 % Low 24-43 [facility] Comment on above: Performed By: #### C DP, CP, LIP, TROPI, LIPRF, GLYHGB #### [address] [address] Director Inbound Sales: Brandon Anaya MD MCH (RBC) [Entitic mass] 29.7 pg Normal 25.2-33.5 [facility] Comment on above: Performed By: #### C DP, CP, LIP, TROPI, LIPRF, GLYHGB #### [address] [address] Director Inbound Sales: Brandon Anaya MD MCHC (RBC) [Mass/Vol] 31.8 g/dL Normal 28.4-34.8 [facility] Comment on above: Performed By: #### C DP, CP, LIP, TROPI, LIPRF, GLYHGB #### [address] [address] Director Inbound Sales: Brandon Anaya MD MCV (RBC) [Entitic vol] 93.3 fL Normal 82.6-102.9 [facility] Comment on above: Performed By: #### C DP, CP, LIP, TROPI, LIPRF, GLYHGB #### [place] [address] Director Inbound Sales: Brandon Anaya MD Monocytes (Bld) [#/Vol] 0.52 10*3/uL Normal 0.10-1.20 [facility] Comment on above: Performed By: #### C DP, CP, LIP, TROPI, LIPRF, GLYHGB #### [address] [address] Director Inbound Sales: Brandon Anaya MD Monocytes/100 WBC (Bld) 7 % Normal 3-12 [facility] Comment on above: Performed By: #### C DP, CP, LIP, TROPI, LIPRF, GLYHGB #### [address] [address] Director Inbound Sales: Brandon Anaya MD Neutrophil (Seg) 79 % High 36-65 [facility] Comment on above: Performed By: #### C DP, CP, LIP, TROPI, LIPRF, GLYHGB #### [address] [address] Director Inbound Sales: Brandon Anaya MD NRBC Automated 0.0 per 100 WBC Normal 0.0 [facility] Comment on above: Performed By: #### C DP, CP, LIP, TROPI, LIPRF, GLYHGB #### [address] [address] Director Inbound Sales: Brandon Anaya MD Platelet mean volume (Bld) [Entitic vol] 10.9 fL Normal 8.1-13.5 [facility] Comment on above: Performed By: #### C DP, CP, LIP, TROPI, LIPRF, GLYHGB #### [address] [address] Director Inbound Sales: Brandon Anaya MD Platelets (Bld) [#/Vol] 202 10*3/uL Normal 138-453 [facility] Comment on above: Performed By: #### C DP, CP, LIP, TROPI, LIPRF, GLYHGB #### [address] [address] Director Inbound Sales: Brandon Anaya MD RBC (Bld) [#/Vol] 4.78 10*6/uL Normal 3.95-5.11 [facility] Comment on above: Performed By: #### C DP, CP, LIP, TROPI, LIPRF, GLYHGB #### [address] [address] Director Inbound Sales: Brandon Anaya MD WBC (Bld) [#/Vol] 7.7 10*3/uL Normal 3.5-11.3 [facility] Comment on above: Performed By: #### C DP, CP, LIP, TROPI, LIPRF, GLYHGB #### [address] [address] Director Inbound Sales: Brandon Anaya MD Auto Diff Performed NOT REPORTED Normal [facility] Comment on above: Performed By: #### C DP, CP, LIP, TROPI, LIPRF, GLYHGB #### [address] [address] Director Inbound Sales: Brandon Anaya MD Platelets (Bld) [#/Vol] NOT REPORTED Normal [facility] Comment on above: Performed By: #### C DP, CP, LIP, TROPI, LIPRF, GLYHGB #### [address] [address] Director Inbound Sales: Brandon Anaya MD RBC morphology finding Nom (Bld) NOT REPORTED Normal [facility] Comment on above: Performed By: #### C DP, CP, LIP, TROPI, LIPRF, GLYHGB #### [address] [address] Director Inbound Sales: Brandon Anaya MD WBC Morphology NOT REPORTED Normal [facility] Comment on above: Performed By: #### C DP, CP, LIP, TROPI, LIPRF, GLYHGB #### [address] [address] Director Inbound Sales: Brandon Anaya MD COVID-19, PCRon 10-09-2019 SARS-CoV-2 [place] SARS-CoV-2, PCR [place] SARS-CoV-2, Rapid Not Detected Not Detected [place], [place] Comment on above: Rapid NAAT: The [...] management decisions. Fact sheet for Healthcare Providers: https://www.fda.gov/media/503134/download Fact sheet for Patients: https://www.fda.gov/media/345811/download Methodology: Isothermal Nucleic Acid Amplification Source .NASOPHARYNGEAL SWAB [place], [place] CT CHEST PULMONARY EMBOLISM W CONTRASTon [...] Wendy Darby MD 10/09/19 Final result Normal [facility] No central or segmen rhett pulmonary embolus. No acute pulmonary process. Emphysema. [place] EXAMINATION: CTA OF THE CHEST 10/09/2019 [...] focal consolidation. Bones: Thoracic spine degenerative changes. [facility] [place], [place]hpn Incoming Radiant Results From [facility] - 10/09/2019 8:31 AM EDT EXAMINATION: CTA [...] pulmonary embolus. No acute pulmonary process. Emphysema. [employer], [employer] Comp Metabolic Profon 2019 (cont.) Normal [facility] Comment on above: Result Comment: Aver age GFR for 70 or more years old: 75 mL/min/1.73sq m Chronic Kidney Disease: <60 mL/min/1.73sq m Kidney failure: <15 mL/min/1.73sq m eGFR calculated using average adult body mass. Additional eGFR calculator available at: http://www.Mechanology/multiple_crcl_2011.htm Performed By: #### C DP, CP, LIP, TROPI, LIPRF, GLYHGB #### [address] [address] Director Inbound Sales: Brandon Anaya MD Albumin [Mass/Vol] 4.1 g/dL Normal 3.5-5.2 [facility] Comment on above: Performed By: #### C DP, CP, LIP, TROPI, LIPRF, GLYHGB #### [address] [address] Director Inbound Sales: Brandon Anaya MD Albumin/Globulin [Mass ratio] 1.6 {ratio} Normal 1.0-2.5 [facility] Comment on above: Performed By: #### C DP, CP, LIP, TROPI, LIPRF, GLYHGB #### [address] [address] Director Inbound Sales: Brandon Anaya MD Alkaline Phos 90 U/L Normal 35-104 [facility] Comment on above: Performed By: #### C DP, CP, LIP, TROPI, LIPRF, GLYHGB #### [address] [address] Director Inbound Sales: Brandon Anaya MD ALT [Catalytic activity/Vol] 15 U/L Normal 5-33 [facility] Comment on above: Performed By: #### C DP, CP, LIP, TROPI, LIPRF, GLYHGB #### [address] [address] Director Inbound Sales: Brandon Anaya MD Anion gap [Moles/Vol] 18 mmol/L High 9-17 [facility] Comment on above: Performed By: #### C DP, CP, LIP, TROPI, LIPRF, GLYHGB #### [facility] [place] [address] Director Inbound Sales: Brandon Anaya MD AST [Catalytic activity/Vol] 11 U/L Normal <32 [facility] Comment on above: Performed By: #### C DP, CP, LIP, TROPI, LIPRF, GLYHGB #### [address] [address] Director Inbound Sales: Brandon Anaya MD Bilirubin Ql (U) 0.39 mg/dL Normal 0.3-1.2 [facility] Comment on above: Performed By: #### C DP, CP, LIP, TROPI, LIPRF, GLYHGB #### [address] [address] Director Inbound Sales: Brandon Anaya MD Calcium [Mass/Vol] 9.5 mg/dL Normal 8.6-10.4 [facility] Comment on above: Performed By: #### C DP, CP, LIP, TROPI, LIPRF, GLYHGB #### [facility] [address] [place] [address] Director Inbound Sales: Brandon Anaya MD Chloride [Moles/Vol] 99 mmol/L Normal 98-107 [facility] Comment on above: Performed By: #### C DP, CP, LIP, TROPI, LIPRF, GLYHGB #### [facility] [address] [place] [address] Director Inbound Sales: Brandon Anaya MD CO2 [Moles/Vol] 24 mmol/L Normal 20-31 [facility] Comment on above: Performed By: #### C DP, CP, LIP, TROPI, LIPRF, GLYHGB #### [facility] [address] [place] [address] Director Inbound Sales: Brandon Anaya MD Creatinine [Mass/Vol] 0.63 mg/dL Normal 0.50-0.90 [facility] Comment on above: Performed By: #### C DP, CP, LIP, TROPI, LIPRF, GLYHGB #### [facility] [address] [place] [address] Director Inbound Sales: Brandon Anaya MD GFR, Amer >60 Normal >60 [facility] Comment on above: Performed By: #### C DP, CP, LIP, TROPI, LIPRF, GLYHGB #### [facility] [address] [place] [address] Director Inbound Sales: Brandon Anaya MD GFR,non Amer >60 Normal >60 [facility] Comment on above: Performed By: #### C DP, CP, LIP, TROPI, LIPRF, GLYHGB #### [facility] [address] [place] [address] Director Inbound Sales: Brandon Anaya MD Glucose [Mass/Vol] 208 mg/dL High 70-99 [facility] Comment on above: Performed By: #### C DP, CP, LIP, TROPI, LIPRF, GLYHGB #### [facility] [address] [place] [address] Director Inbound Sales: Brandon Anaya MD Potassium [Moles/Vol] 3.9 mmol/L Normal 3.7-5.3 [facility] Comment on above: Performed By: #### C DP, CP, LIP, TROPI, LIPRF, GLYHGB #### [facility] [address] [place] [address] Director Inbound Sales: Brandon Anaya MD Protein [Mass/Vol] 6.6 g/dL Normal 6.4-8.3 [facility] Comment on above: Performed By: #### C DP, CP, LIP, TROPI, LIPRF, GLYHGB #### [facility] [place] [address] Director Inbound Sales: Brandon Anaya MD Sodium [Moles/Vol] 141 mmol/L Normal 135-144 [facility] Comment on above: Performed By: #### C DP, CP, LIP, TROPI, LIPRF, GLYHGB #### [facility] [place] [address] Director Inbound Sales: Brandon Anaya MD Urea nitrogen [Mass/Vol] 17 mg/dL Normal 8- [facility] Comment on above: Performed By: #### C DP, CP, LIP, TROPI, LIPRF, GLYHGB #### [facility] [address] [place] [address] Director Inbound Sales: Brandon Anaya MD BUN/CRE Ratio NOT REPORTED Normal - [facility] Comment on above: Performed By: #### C DP, CP, LIP, TROPI, LIPRF, GLYHGB #### [facility] [address] [place] [address] Director Inbound Sales: Brandon Anaya MD Staging: NOT REPORTED Normal [facility] Comment on above: Performed By: #### C DP, CP, LIP, TROPI, LIPRF, GLYHGB #### [facility] [address] [place] [address] Director Inbound Sales: Brandon Anaya MD Comprehensive Metabolic [facility] 10-09-2019 Albumin [Mass/Vol] 4.1 g/dL 3.5 - 5.2 g/dL [place] Albumin/Globulin [Mass ratio] 1.6 {ratio} [place] ALP [Catalytic activity/Vol] 90 U/L 35 - 104 U/L [place] ALT [Catalytic activity/Vol] 15 U/L 5 - 33 U/L [place] Anion gap [Moles/Vol] 18 mmol/L High 9 - 17 mmol/L [place] AST [Catalytic activity/Vol] 11 U/L <32 [place] Bilirubin Ql (U) 0.39 mg/dL 0.3 - 1.2 mg/dL [place] Bun/Cre Ratio NOT REPORTED [place] Calcium [Mass/Vol] 9.5 mg/dL 8.6 - 10. 4 mg/dL [place] Chloride [Moles/Vol] 99 mmol/L 98 - 10 7 mmol/L [place] CO2 [Moles/Vol] 24 mmol/L 20 - 31 mmol/L [place] Creatinine [Mass/Vol] 0.63 mg/dL 0.5 - 0.9 mg/dL [place] GFR >60 >60 mL/min [place] GFR Non- >60 >60 mL/min [place] GFR/1.73 sq M predicted among non-blacks MDRD (S/P/Bld) [Vol rate/Area] [place] Comment on above: Average GFR for 70 o r more years old: 75 mL/min/1.73sq m Chronic Kidney Disease: <60 mL/min/1.73sq m Kidney failure: <15 mL/min/1.73sq m eGFR calculated using average adult body mass. Additional eGFR calculator available at: http://www.Mechanology/multiple_crcl_2012.htm GFR/1.73 sq M predicted among non-blacks MDRD (S/P/Bld) [Vol rate/Area] NOT REPORTED [place] Glucose [Mass/Vol] 208 mg/dL High 70 - 99 mg/dL [place] Interpretation and review of laboratory results Abnormal [place] Potassium [Moles/Vol] 3.9 mmol/L 3.7 - 5.3 mmol/L [place] Protein [Mass/Vol] 6.6 g/dL 6.4 - 8.3 g/dL [place] Sodium [Moles/Vol] 141 mmol/L 135 - 144 mmol/L [place] Urea nitrogen [Mass/Vol] 17 mg/dL 8 - 23 mg/dL [place] EKG 12 Leadon 10-09-2019 Atrial Rate 70 BPM [place], [place] P [place] 54 degrees [place] P-R Interval 136 ms [place] Q-T Interval 432 ms [facility], [place] QRS Duration 80 ms [place] QTc Calculation (Bazett) 466 ms [place] R [place] -9 degrees [facility], [place] T [place] 3 degrees [facility] Ventricular Rate 70 BPM [place] Prieto, Mhpn Incoming E kg Results From [facility] - 10/09/2019 3:25 PM EDT Normal sinus rhythm Possible Left atrial enlargement Nonspecific ST abnormality Abnormal ECG No previous ECGs available [place], [place] Normal sinus rhythm Possible Left atrial enlargement Nonspecific ST abnormality Abnormal ECG No previous ECGs available [place] LIPASEon 10-09-2019 Lipase [Catalytic activity/Vol] 48 U/L 13 - 60 U/L [place] Lipaseon 10-09-2019 Lipase [Catalytic activity/Vol] 48 U/L Normal 13-60 [facility] Comment on above: Performed By: #### C DP, CP, LIP, TROPI, LIPRF, GLYHGB #### [facility] [address] [place] [id number] Director Inbound Sales: Brandon Anaya MD Lipid Prof, Fastingon 2019 Cholesterol [Mass/Vol] 229 mg/dL High <200 [facility] Comment on above: Result Comment: Cholesterol Guidelines: <200 Desirable 200-240 Borderline >240 Undesirable Performed By: #### C DP, CP, LIP, TROPI, LIPRF, GLYHGB #### [facility] [address] [place] [address] Director Inbound Sales: Brandon Anaya MD Cholesterol in HDL [Mass/Vol] 50 mg/dL Normal >40 [facility] Comment on above: Result Comment: HDL Guidelines: <40 Undesirable 40-59 Borderline >59 Desirable Performed By: #### C DP, CP, LIP, TROPI, LIPRF, GLYHGB #### [facility] [address] [place] [address] [id number] Director Inbound Sales: Brandon Anaya MD Cholesterol in LDL [Mass/Vol] 143 mg/dL High 0-130 [facility] Comment on above: Result Comment: LDL Guidelines: <100 Desirable 100-129 Near to/above Desirable 130-159 Borderline >159 Undesirable Direct (measured) LDL and calculated LDL are not interchangeable tests. Performed By: #### C DP, CP, LIP, TROPI, LIPRF, GLYHGB #### [facility] [address] [place] [address] [phone] Director Inbound Sales: Brandon Anaya MD Cholesterol.total/Chol esterol in HDL [Mass ratio] 4.6 {ratio} Normal <5 [facility] Comment on above: Performed By: #### C DP, CP, LIP, TROPI, LIPRF, GLYHGB #### [facility] [address] [place] [address] Director Inbound Sales: Brandon Anaya MD Triglyceride,Fasting 182 mg/dL High <150 [facility] Comment on above: Result Comment: Triglyceride Guidelines: <150 Desirable 150-199 Borderline 200-499 High >499 Very high Based on AHA Guidelines for fasting triglyceride, November 2011. Performed By: #### C DP, CP, LIP, TROPI, LIPRF, GLYHGB #### [facility] [place] [address] Director Inbound Sales: Brandon Anaya MD Cholesterol in VLDL [Mass/Vol] NOT REPORTED Normal -30 [facility] Comment on above: Performed By: #### C DP, CP, LIP, TROPI, LIPRF, GLYHGB #### [facility] [place] [address] Director Inbound Sales: Brandon Anaya MD Lipid, Fastingon 10-09-2019 Cholesterol [Mass/Vol] 229 mg/dL High <200 [place] Comment on above: Cholesterol Guidelines: <200 Desirable 200-240 Borderline >240 Undesirable Cholesterol in HDL [Mass/Vol] 50 mg/dL >40 [place] Comment on above: HDL Guidelines: <40 Undesirable 40-59 Borderline >59 Desirable Cholesterol in LDL [Mass/Vol] 143 mg/dL High 0 - 130 mg/dL [place] Comment on above: LDL Guidelines: <100 Desirable 100-129 Near to/above Desirable 130-159 Borderline >159 Undesirable Direct (measured) LDL and calculated LDL are not interchangeable tests. Cholesterol in VLDL [Mass/Vol] NOT REPORTED High 1 - 30 mg/dL [place] Cholesterol.total/Chol esterol in HDL [Mass ratio] 4.6 {ratio} <5 [place] Interpretation and review of laboratory results Abnormal [place] Triglyceride, Fasting 182 mg/dL High <150 [place] Comment on above: Triglyceride Guidelines: <150 Desirable 150-199 Borderline 200-499 High >499 Very high Based on AHA Guidelines for fasting triglyceride, November 2011. POC Glucose Fingerstickon Glucose [Mass/Vol] 126 mg/dL High 65 - 105 mg/dL [place], [place] Interpretation and review of laboratory results Abnormal [place] [id number] 10-09-2019 SARS-CoV-2 Normal [facility] Comment on above: Performed By: #### C OVID #### [facility] [address] [place] [phone] Director Inbound Sales: Brandon Anaya MD SARS-CoV-2,Rapid Not Detected Normal NOTDET [facility] Comment on above: Result Comment: Rapid NAAT: [...] management decisions. Fact sheet for Healthcare Providers: https://www.fda.gov/media/736861/download Fact sheet for Patients: https://www.fda.gov/media/094657/download Methodology: Isothermal Nucleic Acid Amplification Performed By: #### C OVID #### [facility] [address] [place] [address] Director Inbound Sales: Brandon Anaya MD SARS-CoV-2 Source .NASOPHARYNGEAL SWAB Normal [facility] Comment on above: Performed By: #### C OVID #### [facility] [address] [place] [phone] Director Inbound Sales: Brandon Anaya MD Troponinon 10-09-2019 Troponin I.cardiac [Mass/Vol] 10 ng/L Normal 0-14 [facility] Comment on above: Result Comment: High Sensitivity Troponin values cannot be compared with other Troponin methodologies. Patients with high levels of Biotin oral intake (i.e >5mg/day) may have falsely decreased Troponin levels. Samples collected within 8 hours of biotin intake may require additional information for diagnosis. Performed By: #### T OSMAR #### [facility] [address] [place] [address] Director Inbound Sales: Brandon Anaya MD Troponin I.cardiac [Mass/Vol] NOT REPORTED Normal <0.03 [facility] Comment on above: Performed By: #### T OSMAR #### [facility] [address] [place] [address] Director Inbound Sales: Brandon Anaya MD Troponin I.cardiac [Mass/Vol] 10 ng/L Normal 0-14 [facility] Comment on above: Result Comment: High Sensitivity Troponin values cannot be compared with other Troponin methodologies. Patients with high levels of Biotin oral intake (i.e >5mg/day) may have falsely decreased Troponin levels. Samples collected within 8 hours of biotin intake may require additional information for diagnosis. Performed By: #### C DP, CP, LIP, TROPI, LIPRF, GLYHGB #### [facility] [address] [place], [place] [phone] Director Inbound Sales: Brandon Anaya MD Troponin I.cardiac [Mass/Vol] NOT REPORTED [place] Troponin T.cardiac [Mass/Vol] NOT REPORTED <0.03 ng/mL [place] Troponin, High Sensitivity 10 ng/L 0 - 14 ng/L [place] Comment on above: High Sensitivity Troponin values cannot be compared with other Troponin methodologies. Patients with high levels of Biotin oral intake (i.e >5mg/day) may have falsely decreased Troponin levels. Samples collected within 8 hours of biotin intake may require additional information for diagnosis. Troponin I.cardiac [Mass/Vol] NOT REPORTED Normal <0.03 [facility] Comment on above: Performed By: #### C DP, CP, LIP, TROPI, LIPRF, GLYHGB #### [facility] [address] [place] [address] Director Inbound Sales: Brandon Anaya MD Troponin I.cardiac [Mass/Vol] NOT REPORTED [place] Troponin T.cardiac [Mass/Vol] NOT REPORTED <0.03 ng/mL [place] Troponin, High Sensitivity 10 ng/L 0 - 14 ng/L [place] Comment on above: High Sensitivity Troponin values cannot be compared with other Troponin methodologies. Patients with high levels of Biotin oral intake (i.e >5mg/day) may have falsely decreased Troponin levels. Samples collected within 8 hours of biotin intake may require additional information for diagnosis. UA w/Reflex Cultureon 2019 Acetoacetic Acid,Ur TRACE Abnormal NEG [facility] Comment on above: Performed By: #### C DP, CP, LIP, TROPI, LIPRF, GLYHGB #### [facility] [address] [place] [address] [phone] Director Inbound Sales: Brandon Anaya MD Bilirubin, SemiQt,Ur Negative Normal NEG [facility] Comment on above: Performed By: #### C DP, CP, LIP, TROPI, LIPRF, GLYHGB #### [address] [address] Director Inbound Sales: Brandon Anaya MD Color (U) YELLOW Normal YEL [facility] Comment on above: Performed By: #### C DP, CP, LIP, TROPI, LIPRF, GLYHGB #### [address] [address] Director Inbound Sales: Brandon Anaya MD Glucose Ql (U) Negative Normal NEG [facility] Comment on above: Performed By: #### C DP, CP, LIP, TROPI, LIPRF, GLYHGB #### [address] [address] Director Inbound Sales: Brandon Anaya MD Hemoglobin, Ur Negative Normal NEG [facility] Comment on above: Performed By: #### C DP, CP, LIP, TROPI, LIPRF, GLYHGB #### [address] [address] Director Inbound Sales: Brandon Anaya MD Leukocyte esterase Test strip Ql (U) Negative Normal NEG [facility] Comment on above: Performed By: #### C DP, CP, LIP, TROPI, LIPRF, GLYHGB #### [address] [address] Director Inbound Sales: Brandon Anaya MD Nitrite,Ur Negative Normal NEG [facility] Comment on above: Performed By: #### C DP, CP, LIP, TROPI, LIPRF, GLYHGB #### [address] [address] Director Inbound Sales: Brandon Anaya MD pH (U) 5.5 [pH] Normal 5.0-8.0 [facility] Comment on above: Performed By: #### C DP, CP, LIP, TROPI, LIPRF, GLYHGB #### [address] [address] Director Inbound Sales: Brandon Anaya MD Protein Ql (U) 1+ Abnormal NEG [facility] Comment on above: Performed By: #### C DP, CP, LIP, TROPI, LIPRF, GLYHGB #### [place] [id number] [place] [address] Director Inbound Sales: Brandon Anaya MD Specific gravity (U) [Rel density] 1.086 High 1.005-1.030 [facility] Comment on above: Performed By: #### C DP, CP, LIP, TROPI, LIPRF, GLYHGB #### [address] [address] Director Inbound Sales: Brandon Anaya MD Turbidity CLEAR Normal CLEAR [facility] Comment on above: Performed By: #### C DP, CP, LIP, TROPI, LIPRF, GLYHGB #### [address] [address] Director Inbound Sales: Brandon Anaya MD Urobilinogen,Ur Normal Normal NORM [facility] Comment on above: Performed By: #### C DP, CP, LIP, TROPI, LIPRF, GLYHGB #### [address] [address] Director Inbound Sales: Brandon Anaya MD Comment NOT REPORTED Normal [facility] Comment on above: Performed By: #### C DP, CP, LIP, TROPI, LIPRF, GLYHGB #### [address] [address] Director Inbound Sales: Brandon Anaya MD URINALYSIS, MICROon 10-09-19 20 Amorphous, UA NOT REPORTED None [facility] Bacteria, UA NOT REPORTED None [facility] [place] Casts UA NOT REPORTED [facility] [place] Crystals, UA NOT REPORTED None /HPF [facility] [place] Epithelial Cells UA 10 TO 20 [facility] [place] Mucus, UA NOT REPORTED None [place], [place] Other Observations UA NOT REPORTED NOT REQ. [place] RBC (U) [#/Vol] 0 TO 2 [place] Renal Epithelial, UA NOT REPORTED 0 /HPF [place] Trichomonas, UA NOT REPORTED None [place] WBC, UA 0 TO 2 [place] Yeast, UA NOT REPORTED None [place] ABDOMEN LIMITEDon 020 US ABDOMEN LIMITED EXAMINATION: RIGHT UPPER QUADRANT ULTRASOUND 10/09/2019 3:35 pm COMPARISON: None. HISTORY: ORDERING SYSTEM PROVIDED HISTORY: RUQ and epigastric pain, r/o cholecystitis, gall bladder, pancreas protection manager PROVIDED HISTORY: RUQ and epigastric pain, r/o [...] Fransisco Ochoa MD 10/09/19 Final result Normal [facility] US ABDOMEN LIMITED Specify o rgan? LIVER, GALLBLADDER, PANCREASon 10-09-2019 EXAMINATION: RIGHT U PPER QUADRANT ULTRASOUND 10/09/2019 3:35 pm COMPARISON: None. HISTORY: ORDERING SYSTEM PROVIDED HISTORY: RUQ and epigastric pain, r/o cholecystitis, gall bladder, pancreas protection manager PROVIDED HISTORY: RUQ and epigastric pain, r/o [...] No evidence of right upper quadrant ascites. [place] Unremarkable right u pper quadrant ultrasound. [place] Prieto, Mhpn Incoming Radiant Results From [employer] - 10/09/2019 4:01 PM EDT EXAMINATION: RIGHT UPPER QUADRANT ULTRASOUND 10/09/2019 3:35 pm COMPARISON: None. HISTORY: ORDERING SYSTEM PROVIDED HISTORY: RUQ and epigastric pain, r/o cholecystitis, gall bladder, pancreas protection manager PROVIDED HISTORY: RUQ and epigastric pain, r/o [...] ascites. IMPRESSION: Unremarkable right upper quadrant ultrasound. [place] Urinalysis Reflex to Culture on 10-09-2019 Bilirubin Urine Negative NEGATIVE [place] Color, UA YELLOW YELLOW [place] Glucose, Ur Negative NEGATIVE [place] Interpretation and review of laboratory results Abnormal [place] Ketones Ql (U) TRACE Abnormal NEGATIVE [place] Leukocyte esterase Test strip Ql (U) Negative NEGATIVE [place] Nitrite, Urine Negative NEGATIVE [place] pH, UA 5.5 [place] Protein (U) [Mass/Vol] 1+ Abnormal NEGATIVE [place] Specific [place], UA 1.086 High [place] Turbidity UA CLEAR CLEAR [place] Urinalysis Comments NOT REPORTED [place] Urine Hgb Negative NEGATIVE [place] Urobilinogen, Urine Normal Normal [facility] [place] Urinalysis,Microon 0 ----- Normal [facility] Comment on above: Performed By: #### C DP, CP, LIP, TROPI, LIPRF, GLYHGB #### [facility] [address] [place] [address] Director Inbound Sales: Brandon Anaya MD Epithelial cells LM.HPF (Urine sed) [#/Area] 10 TO 20 Normal 0-5 [facility] Comment on above: Performed By: #### C DP, CP, LIP, TROPI, LIPRF, GLYHGB #### [address] [address] Director Inbound Sales: Brandon Anaya MD RBC (U) [#/Vol] 0 TO 2 Normal 0-2 [facility] Comment on above: Performed By: #### C DP, CP, LIP, TROPI, LIPRF, GLYHGB #### [address] [address] Director Inbound Sales: Brandon Anaya MD WBC (U) [#/Vol] 0 TO 2 Normal 0-5 [facility] Comment on above: Performed By: #### C DP, CP, LIP, TROPI, LIPRF, GLYHGB #### [facility] [address] [place] [address] Director Inbound Sales: Brandon Anaya MD Amorphous sediment LM Ql (Urine sed) NOT REPORTED Normal [facility] Comment on above: Performed By: #### C DP, CP, LIP, TROPI, LIPRF, GLYHGB #### [facility] [address] [place] [address] Director Inbound Sales: Brandon Anaya MD Bacteria LM.HPF (Urine sed) [#/Area] NOT REPORTED Normal [facility] Comment on above: Performed By: #### C DP, CP, LIP, TROPI, LIPRF, GLYHGB #### [address] [address] Director Inbound Sales: Brandon Anaya MD Casts LM.LPF (Urine sed) [#/Area] NOT REPORTED Normal 0-2 [facility] Comment on above: Performed By: #### C DP, CP, LIP, TROPI, LIPRF, GLYHGB #### [address] [address] Director Inbound Sales: Brandon Anaya MD Crystals LM Nom (Urine sed) NOT REPORTED Normal NONE [facility] Comment on above: Performed By: #### C DP, CP, LIP, TROPI, LIPRF, GLYHGB #### [address] [address] Director Inbound Sales: Brandon Anaya MD Epithelial, Renal NOT REPORTED Normal 0 [facility] Comment on above: Performed By: #### C DP, CP, LIP, TROPI, LIPRF, GLYHGB #### [address] [address] Director Inbound Sales: Brandon Anaya MD Mucus Strands NOT REPORTED Normal NONE [facility] Comment on above: Performed By: #### C DP, CP, LIP, TROPI, LIPRF, GLYHGB #### [facility] [address] [place] [address] Director Inbound Sales: Brandon Anaya MD Other Observations NOT REPORTED Normal NREQ [facility] Comment on above: Performed By: #### C DP, CP, LIP, TROPI, LIPRF, GLYHGB #### [facility] [address] [place] [address] Director Inbound Sales: Brandon Anaya MD Trichomonas NOT REPORTED Normal NONE [facility] Comment on above: Performed By: #### C DP, CP, LIP, TROPI, LIPRF, GLYHGB #### [facility] [address] [place] [address] Director Inbound Sales: Brandon Anaya MD Yeast LM Ql (Urine sed) NOT REPORTED Normal NONE [facility] Comment on above: Performed By: #### C DP, CP, LIP, TROPI, LIPRF, GLYHGB #### [facility] [place] [address] Director Inbound Sales: Brandon Anaya MD XR ABDOMEN (KUB) (SINGLE [...] Naga Browning MD 10/09/19 Final result Normal [facility] No evidence of bowel obstruction. [place] EXAMINATION: ONE SUP INE XRAY VIEW(S) OF THE ABDOMEN 10/09/2019 7:17 pm COMPARISON: None. HISTORY: ORDERING SYSTEM PROVIDED HISTORY: r/o SBO TECHNOLOGIST PROVIDED HISTORY: r/o SBO Reason for Exam: port Supine FINDINGS: Nonspecific, nonobstructive bowel gas pattern with paucity of bowel gas. Atherosclerotic calcifications. Retained contrast in the urinary bladder. No acute osseous abnormality. [place] Prieto, Mhpn Incoming Radiant Results From [employer] - 10/09/2019 7:35 PM EDT EXAMINATION: ONE [...] abnormality. IMPRESSION: No evidence [facility] obstruction. [facility] [place] Ald[facility] 07-[facility]-2017 Aldosterone 4.8 ng/dL Normal [facility] Comment on above: Result Comment: (NOT [...] gender-specific referenceintervals for this test in the [facility] Test Directory([employer]).Performed by [facility],[address] [place] [id number] vlm.[employer], Nik Roass MD, Lab. DirectorPerformed at [facility] [address] [place], [place] [id number] ([phone] Performed By: #### C ORTI ####[facility] [place] [address] #### AAANDRES, AREN ####[facility] [place] [address] Renin Activityon 07-02-2017 Renin Activity 0.1 ng/mL/hr Normal [facility] Comment on above: Result Comment: (NOT E)INTERPRETIVE INFORMATION: Renin ActivityAdult, Normal sodium diet: Supine ................. 0.2-1.6 ng/mL/hr Upright ................ 0.5-4.0 ng/mL/hrChildren, Normal sodium diet, Supine: [place] (1-7 days) ..... 2.0-35.0 ng/mL/hr Cord blood [...] activity when angiotensinogen isdecreased.See Compliance Statement D: www.[employer]/CSPerformed by [facility],[address] [place] [phone] ndt.[employer], Nik Rosas MD, Lab. DirectorPerformed at [facility] [address] [facility].[place], [place] [id number] ([phone] Performed By: #### Domenico ORTI ####[facility] [place], [place] [id number] #### MARYAM, AKIN ####[facility] [facility].[place], [place] [id number] Basic Metab w/rfx MGon 06-29 (cont.) Normal [facility] Comment on above: Result Comment: Aver age GFR for 70 or more years old: 75 mL/min/1.73sq mChronic Kidney Disease: <60 mL/min/1.73sq mKidney failure: <15 mL/min/1.73sq meGFR calculated using average adult body mass. Additional eGFR calculator available at:http://www.Mechanology/multiple_crcl_2012.htmPerformed at [facility] [address] [place] [address] Performed By: #### C DP, BMPX, TROPI ####[address] [address] Anion gap 10 mmol/L Normal 9-[address] [facility] Comment on above: Performed By: #### C DP, BMPX, TROPI ####[address] [address] Calcium 9.1 mg/dL Normal 8.6-10.[address] [facility] Comment on above: Performed By: #### C DP, BMPX, TROPI ####[address] [address] Chloride 106 mmol/L Normal 98-[address] [facility] Comment on above: Performed By: #### C DP, BMPX, TROPI ####[address] [address] CO2 26 mmol/L Normal 20-[address] [facility] Comment on above: Performed By: #### C DP, BMPX, TROPI ####[address] [address] Creatinine 0.66 mg/dL Normal 0.50-0.[address] [facility] Comment on above: Performed By: #### C DP, BMPX, TROPI ####[address] [place] [address] eGFR (non-black) mL/min/{1.73_m2} Normal >60 [facility] Comment on above: Performed By: #### C DP, BMPX, TROPI ####[address] [address] Glucose mass conc 104 mg/dL High 70-99 [facility] Comment on above: Performed By: #### C DP, BMPX, TROPI ####[address] [address] Potassium molar conc 4.1 mmol/L Normal 3.7-5.3 [facility] Comment on above: Performed By: #### C DP, BMPX, TROPI ####[address] [address] Sodium 142 mmol/L Normal 135-[address] [facility] Comment on above: Performed By: #### C DP, BMPX, TROPI ####[address] [address] Urea nitrogen 13 mg/dL Normal 8-[address] [facility] Comment on above: Performed By: #### C DP, BMPX, TROPI ####[address] [address] BUN/CRE Ratio NOT REPORTED Normal 9-20 [facility] Comment on above: Performed By: #### C DP, BMPX, TROPI ####[address] [address] Staging: NOT REPORTED Normal [facility] Comment on above: Performed By: #### C DP, BMPX, TROPI ####[address] [address] CBC with Diffon 06-29-2017 Abs. Basophil 0.00 k/uL Normal 0.0-0.[address] [facility] Comment on above: Result Comment: Perf ormed at [facility] [address] [place] [address] Performed By: #### C DP, BMPX, TROPI ####[facility] [place] [address] Abs.Neutrophil (Seg) 3.80 k/uL Normal 1.3-9.1 [facility] Comment on above: Performed By: #### C DP, BMPX, TROPI ####[address] [address] Basophils/100 WBC Auto (Bld) 1 % Normal 0-[address] [facility] Comment on above: Performed By: #### C DP, BMPX, TROPI ####[facility] [place] [address] Eosinophils 0.20 10*3/uL Normal 0.0-0.[address] [facility] Comment on above: Performed By: #### C DP, BMPX, TROPI ####[facility] [place] [address] Eosinophils/100 leukocytes 2 % Normal 0-[address] [facility] Comment on above: Performed By: #### C DP, BMPX, TROPI ####[facility] [place] [address] Erythrocyte distribution width Auto Ratio (RBC) 14.5 % Normal 11.5-14.[address] [facility] Comment on above: Performed By: #### C DP, BMPX, TROPI ####[address] [address] Erythrocytes (RBC) 4.36 10*6/uL Normal 4.0-5.2 [facility] Comment on above: Performed By: #### C DP, BMPX, TROPI ####[facility] [place] [address] Hematocrit (HCT) 38.3 % Normal 36-46 [facility] Comment on above: Performed By: #### C DP, BMPX, TROPI ####[facility] [place] [address] Hemoglobin mass conc (Bld) 12.9 g/dL Normal 12.0-16.[address] [facility] Comment on above: Performed By: #### C DP, BMPX, TROPI ####[address] [address] Lymphocytes 2.20 10*3/uL Normal 1.0-4.[address] [facility] Comment on above: Performed By: #### C DP, BMPX, TROPI ####[address] [address] Lymphocytes/100 leukocytes 32 % Normal 24-[address] [facility] Comment on above: Performed By: #### C DP, BMPX, TROPI ####[facility] [place] [address] MCH 29.5 pg Normal 26-[address] [facility] Comment on above: Performed By: #### C DP, BMPX, TROPI ####[address] [address] MCHC mass conc (RBC) 33.6 g/dL Normal 31-37 [facility] Comment on above: Performed By: #### C DP, BMPX, TROPI ####[facility] [place] [address] MCV 87.8 fL Normal 80-[address] [facility] Comment on above: Performed By: #### C DP, BMPX, TROPI ####[facility] [place] [address].[place] [address] Monocytes 0.50 10*3/uL Normal 0.1-1.[address] [facility] Comment on above: Performed By: #### C DP, BMPX, TROPI ####[facility] [place] [address] Monocytes/100 leukocytes 8 % High 1-[address] [facility] Comment on above: Performed By: #### C DP, BMPX, TROPI ####[address] [address] Neutrophil (Seg) 57 % Normal 36-66 [facility] Comment on above: Performed By: #### C DP, BMPX, TROPI ####[address] [address] Platelet mean volume (PMV) 8.5 fL Normal 6.0-12.[address] [facility] Comment on above: Performed By: #### C DP, BMPX, TROPI ####[address] [address] Platelets 219 10*3/uL Normal 150-[address] [facility] Comment on above: Performed By: #### C DP, BMPX, TROPI ####[facility] [place] [address] WBC (Leukocytes) 6.7 10*3/uL Normal 3.5-11.0 [facility] Comment on above: Performed By: #### C DP, BMPX, TROPI ####[address] [address] Auto Diff Performed NOT REPORTED Normal [facility] Comment on above: Performed By: #### C DP, BMPX, TROPI ####[address] [address] [facility] [place] [address] Erythrocyte morphology NOT REPORTED Normal [facility] Comment on above: Performed By: #### C DP, BMPX, TROPI ####[facility] [place] [address].[place] [address] Erythrocytes (RBC) NOT REPORTED Normal [facility] Comment on above: Performed By: #### C DP, BMPX, TROPI ####[address] [place] [address] Granulocytes/100 WBC (Bld) NOT REPORTED Normal 0.00-0.[address] [facility] Comment on above: Performed By: #### C DP, BMPX, TROPI ####[address] [place] [address] Immature granulocytes #/vol (Bld) NOT REPORTED Normal [address] [facility] Comment on above: Performed By: #### C DP, BMPX, TROPI ####[address] [place] [address] Platelets NOT REPORTED Normal [facility] Comment on above: Performed By: #### C DP, BMPX, TROPI ####[address] [place] [address] WBC Morphology NOT REPORTED Normal [facility] Comment on above: Performed By: #### C DP, BMPX, TROPI ####[address] [place] [address] Troponinon 06-29-2017 Troponin I.cardiac mass conc Normal [facility] Comment on above: Result Comment: Refe rence Range: <0.03 Within reference range. 0.03-0.09 Possible myocardial damage.Repeat at appropriate intervals to rule out chronic elevation. >= 0.10 Indicative of myocardial damage.Patients with high levels of Biotin oral intake (i.e >5mg/day) may have falsely decreased Troponin T levels. Samples collected within 8 hours of biotin intake may require additional information for diagnosis.Performed at [address] [address] Performed By: #### C DP, BMPX, TROPI ####[address] [address] Troponin T.cardiac mass conc ug/L Normal <0.[address] [facility] Comment on above: Result Comment: Trop onin T results cannot be compared to Troponin-I results. Performed By: #### C DP, BMPX, TROPI ####[address] [address] Troponin I.cardiac mass conc Normal [facility] Comment on above: Result Comment: Refe rence Range: <0.03 Within reference range. 0.03-0.09 Possible myocardial damage.Repeat at appropriate intervals to rule out chronic elevation. >= 0.10 Indicative of myocardial damage.Patients with high levels of Biotin oral intake (i.e >5mg/day) may have falsely decreased Troponin T levels. Samples collected within 8 hours of biotin intake may require additional information for diagnosis.Performed at [address] [address] Performed By: #### T ROPI ####[address] [address] Troponin T.cardiac mass conc ug/L Normal <0.[address] [facility] Comment on above: Result Comment: Trop onin T results cannot be compared to Troponin-I results. Performed By: #### T ROPI ####[address] [address] XR CHEST (2 VW)on 06-29-2017 XR CHEST [...] by:FABIANA Oliverigned by:Zaire Dominguez MD//18Final result Normal [facility] Basic Metab w/rfx MGon 06-28 (cont.) Normal [facility] Comment on above: Result Comment: Aver age GFR for 70 or more years old: 75 mL/min/1.73sq mChronic Kidney Disease: <60 mL/min/1.73sq mKidney failure: <15 mL/min/1.73sq meGFR calculated using average adult body mass. Additional eGFR calculator available at:http://www.Mechanology/multiple_crcl_2012.htmPerformed at [facility] [address] [place] [address] Performed By: #### C DP, BMPX ####[address] [place] [address] Anion gap 13 mmol/L Normal 9-[address] [facility] Comment on above: Performed By: #### C DP, BMPX ####[facility] [place] [address] Calcium 8.7 mg/dL Normal 8.6-10.[address] [facility] Comment on above: Performed By: #### C DP, BMPX ####[address] [place] [address] Chloride 106 mmol/L Normal 98-[address] [facility] Comment on above: Performed By: #### C DP, BMPX ####[facility] [place] [address].[place] [address] CO2 22 mmol/L Normal 20-[address] [facility] Comment on above: Performed By: #### C DP, BMPX ####[facility] [place] [address] Creatinine 0.53 mg/dL Normal 0.50-0.[address] [facility] Comment on above: Performed By: #### C DP, BMPX ####[address] [address] eGFR (non-black) mL/min/{1.73_m2} Normal >60 [facility] Comment on above: Performed By: #### C DP, BMPX ####[address] [address] Glucose mass conc 168 mg/dL High 70-99 [facility] Comment on above: Performed By: #### C DP, BMPX ####[facility] [place] [address] Potassium molar conc 3.7 mmol/L Normal 3.7-5.3 [facility] Comment on above: Performed By: #### C DP, BMPX ####[facility] [place] [address] Sodium 141 mmol/L Normal 135-[address] [facility] Comment on above: Performed By: #### C DP, BMPX ####[facility] [place] [address] Urea nitrogen 11 mg/dL Normal 8-[address] [facility] Comment on above: Performed By: #### C DP, BMPX ####[facility] [facility] [place] [address] BUN/CRE Ratio NOT REPORTED Normal 9-[address] [facility] Comment on above: Performed By: #### C DP, BMPX ####[facility] [place] [address] Staging: NOT REPORTED Normal [facility] Comment on above: Performed By: #### C DP, BMPX ####[facility] [place] [address] Basic Metabolic Profon 06-28 (cont.) Normal [facility] Comment on above: Result Comment: Aver age GFR for 70 or more years old: 75 mL/min/1.73sq mChronic Kidney Disease: <60 mL/min/1.73sq mKidney failure: <15 mL/min/1.73sq meGFR calculated using average adult body mass. Additional eGFR calculator available at:http://www.Mechanology/multiple_crcl_2012.htmPerformed at [facility] [address] [place] [address] Performed By: #### C DP, BMP, TROPI, TSHX ####[facility] [place] [address] Anion gap 13 mmol/L Normal 9-[address] [facility] Comment on above: Performed By: #### C DP, BMP, TROPI, TSHX ####[facility] [place] [address] Calcium 9.2 mg/dL Normal 8.6-10.[address] [facility] Comment on above: Performed By: #### C DP, BMP, TROPI, TSHX ####[facility] [place] [address] Chloride 102 mmol/L Normal 98-[address] [facility] Comment on above: Performed By: #### C DP, BMP, TROPI, TSHX ####[facility] [facility] [place] [address] CO2 26 mmol/L Normal 20-[address] [facility] Comment on above: Performed By: #### C DP, BMP, TROPI, TSHX ####[facility] [place] [address] Creatinine 0.61 mg/dL Normal 0.50-0.[address] [facility] Comment on above: Performed By: #### C DP, BMP, TROPI, TSHX ####[address] [address] eGFR (non-black) mL/min/{1.73_m2} Normal >60 [facility] Comment on above: Performed By: #### C DP, BMP, TROPI, TSHX ####[address] [address] Glucose mass conc 108 mg/dL High 70-99 [facility] Comment on above: Performed By: #### C DP, BMP, TROPI, TSHX ####[address] [address] Potassium molar conc 4.7 mmol/L Normal 3.7-5.3 [facility] Comment on above: Performed By: #### C DP, BMP, TROPI, TSHX ####[facility] [place] [address] Sodium 141 mmol/L Normal 135-[address] [facility] Comment on above: Performed By: #### C DP, BMP, TROPI, TSHX ####[address] [address] Urea nitrogen 16 mg/dL Normal 8-[address] [facility] Comment on above: Performed By: #### C DP, BMP, TROPI, TSHX ####[facility] [place] [address] BUN/CRE Ratio NOT REPORTED Normal 9-[address] [facility] Comment on above: Performed By: #### C DP, BMP, TROPI, TSHX ####[facility] [place] [address] Staging: NOT REPORTED Normal [facility] Comment on above: Performed By: #### C DP, BMP, TROPI, TSHX ####[facility] [place] [address] CBC with Diffon 06-28-2017 Abs. Basophil 0.00 k/uL Normal 0.0-0.[address] [facility] Comment on above: Result Comment: Perf ormed at [facility] [address] [place] [address] Performed By: #### C DP, BMPX ####[facility] [place] [address] Abs.Neutrophil (Seg) 5.50 k/uL Normal 1.3-9.1 [facility] Comment on above: Performed By: #### C DP, BMPX ####[address] [address] Basophils/100 WBC Auto (Bld) 1 % Normal 0-[address] [facility] Comment on above: Performed By: #### C DP, BMPX ####[facility] [place] [address] Eosinophils 0.10 10*3/uL Normal 0.0-0.[address] [facility] Comment on above: Performed By: #### C DP, BMPX ####[address] [address] Eosinophils/100 leukocytes 2 % Normal 0-[address] [facility] Comment on above: Performed By: #### C DP, BMPX ####[facility] [place] [address] Erythrocyte distribution width Auto Ratio (RBC) 14.8 % Normal 11.5-14.[address] [facility] Comment on above: Performed By: #### C DP, BMPX ####[facility] [place] [address] Erythrocytes (RBC) 4.47 10*6/uL Normal 4.0-5.2 [facility] Comment on above: Performed By: #### C DP, BMPX ####[facility] [place] [address] Hematocrit (HCT) 39.8 % Normal 36-46 [facility] Comment on above: Performed By: #### C DP, BMPX ####[facility] [place] [address] Hemoglobin mass conc (Bld) 13.3 g/dL Normal 12.0-16.[address] [facility] Comment on above: Performed By: #### C DP, BMPX ####[facility] [facility] [place] [address] Lymphocytes 1.90 10*3/uL Normal 1.0-4.[address] [facility] Comment on above: Performed By: #### C DP, BMPX ####[facility] [place] [address] Lymphocytes/100 leukocytes 23 % Low 24-[address] [facility] Comment on above: Performed By: #### C DP, BMPX ####[facility] [place] [address] MCH 29.7 pg Normal 26-[address] [facility] Comment on above: Performed By: #### C DP, BMPX ####[facility] [place] [address] MCHC mass conc (RBC) 33.3 g/dL Normal 31-37 [facility] Comment on above: Performed By: #### C DP, BMPX ####[facility] [place] [address] MCV 89.1 fL Normal 80-[address] [facility] Comment on above: Performed By: #### C DP, BMPX ####[facility] [place] [address] Monocytes 0.50 10*3/uL Normal 0.1-1.[address] [facility] Comment on above: Performed By: #### C DP, BMPX ####[address] [address] Monocytes/100 leukocytes 6 % Normal 1-[address] [facility] Comment on above: Performed By: #### C DP, BMPX ####[address] [address] Neutrophil (Seg) 68 % High 36-66 [facility] Comment on above: Performed By: #### C DP, BMPX ####[address] [address] Platelet mean volume (PMV) 8.6 fL Normal 6.0-12.[address] [facility] Comment on above: Performed By: #### C DP, BMPX ####[address] [address] Platelets 238 10*3/uL Normal 150-[address] [facility] Comment on above: Performed By: #### C DP, BMPX ####[address] [address] WBC (Leukocytes) 8.0 10*3/uL Normal 3.5-11.0 [facility] Comment on above: Performed By: #### C DP, BMPX ####[facility] [place] [address] Auto Diff Performed NOT REPORTED Normal [facility] Comment on above: Performed By: #### C DP, BMPX ####[facility] [place] [address] Erythrocyte morphology NOT REPORTED Normal [facility] Comment on above: Performed By: #### C DP, BMPX ####[facility] [place] [address] [place] [address] Erythrocytes (RBC) NOT REPORTED Normal [facility] Comment on above: Performed By: #### C DP, BMPX ####[facility] [place] [address].[place] [address] Granulocytes/100 WBC (Bld) NOT REPORTED Normal 0.00-0.[address] [facility] Comment on above: Performed By: #### C DP, BMPX ####[address] [address] Immature granulocytes #/vol (Bld) NOT REPORTED Normal [address] [facility] Comment on above: Performed By: #### C DP, BMPX ####[facility] [place] [address].[place] [address] Platelets NOT REPORTED Normal [facility] Comment on above: Performed By: #### C DP, BMPX ####[address] [address] WBC Morphology NOT REPORTED Normal [facility] Comment on above: Performed By: #### C DP, BMPX ####[address] [place] [address] Abs. Basophil 0.10 k/uL Normal 0.0-0.[address] [facility] Comment on above: Result Comment: Perf ormed at [facility] [address] [place] [address] Performed By: #### C DP, BMP, TROPI, TSHX ####[facility] [facility] [place] [address] Abs.Neutrophil (Seg) 4.20 k/uL Normal 1.3-9.1 [facility] Comment on above: Performed By: #### C DP, BMP, TROPI, TSHX ####[facility] [place] [address].[place] [address] Basophils/100 WBC Auto (Bld) 1 % Normal 0-[address] [facility] Comment on above: Performed By: #### C DP, BMP, TROPI, TSHX ####[facility] [place] [address] Eosinophils 0.20 10*3/uL Normal 0.0-0.[address] [facility] Comment on above: Performed By: #### C DP, BMP, TROPI, TSHX ####[facility] [place] [address].[place] [address] Eosinophils/100 leukocytes 2 % Normal 0-[address] [facility] Comment on above: Performed By: #### C DP, BMP, TROPI, TSHX ####[facility] [place] [address] Erythrocyte distribution width Auto Ratio (RBC) 14.7 % Normal 11.5-14.[address] [facility] Comment on above: Performed By: #### C DP, BMP, TROPI, TSHX ####[facility] [place] [address] Erythrocytes (RBC) 4.38 10*6/uL Normal 4.0-5.2 [facility] Comment on above: Performed By: #### C DP, BMP, TROPI, TSHX ####[address] [address] Hematocrit (HCT) 38.7 % Normal 36-46 [facility] Comment on above: Performed By: #### C DP, BMP, TROPI, TSHX ####[address] [address] Hemoglobin mass conc (Bld) 12.9 g/dL Normal 12.0-16.[address] [facility] Comment on above: Performed By: #### C DP, BMP, TROPI, TSHX ####[address] [address] Lymphocytes 2.60 10*3/uL Normal 1.0-4.[address] [facility] Comment on above: Performed By: #### C DP, BMP, TROPI, TSHX ####[address] [address] Lymphocytes/100 leukocytes 34 % Normal 24-[address] [facility] Comment on above: Performed By: #### C DP, BMP, TROPI, TSHX ####[address] [address] MCH 29.6 pg Normal 26-[address] [facility] Comment on above: Performed By: #### C DP, BMP, TROPI, TSHX ####[address] [address] MCHC mass conc (RBC) 33.4 g/dL Normal 31-37 [facility] Comment on above: Performed By: #### C DP, BMP, TROPI, TSHX ####[address] [address] MCV 88.4 fL Normal 80-[address] [facility] Comment on above: Performed By: #### C DP, BMP, TROPI, TSHX ####[facility] [place] [address].[place] [address] Monocytes 0.60 10*3/uL Normal 0.1-1.[address] [facility] Comment on above: Performed By: #### C DP, BMP, TROPI, TSHX ####[address] [address] Monocytes/100 leukocytes 8 % High 1-[address] [facility] Comment on above: Performed By: #### C DP, BMP, TROPI, TSHX ####[address] [address] Neutrophil (Seg) 55 % Normal 36-66 [facility] Comment on above: Performed By: #### C DP, BMP, TROPI, TSHX ####[facility] [place] [address] Platelet mean volume (PMV) 8.6 fL Normal 6.0-12.[address] [facility] Comment on above: Performed By: #### C DP, BMP, TROPI, TSHX ####[facility] [place] [address] Platelets 229 10*3/uL Normal 150-[address] [facility] Comment on above: Performed By: #### C DP, BMP, TROPI, TSHX ####[facility] [place] [address] WBC (Leukocytes) 7.7 10*3/uL Normal 3.5-11.0 [facility] Comment on above: Performed By: #### C DP, BMP, TROPI, TSHX ####[address] [place] [address] Auto Diff Performed NOT REPORTED Normal [facility] Comment on above: Performed By: #### C DP, BMP, TROPI, TSHX ####[facility] [facility] [place] [address] Erythrocyte morphology NOT REPORTED Normal [facility] Comment on above: Performed By: #### C DP, BMP, TROPI, TSHX ####[facility] [place] [address].[place] [address] Erythrocytes (RBC) NOT REPORTED Normal [facility] Comment on above: Performed By: #### C DP, BMP, TROPI, TSHX ####[facility] [place] [address].[place] [address] Granulocytes/100 WBC (Bld) NOT REPORTED Normal 0.00-0.[address] [facility] Comment on above: Performed By: #### C DP, BMP, TROPI, TSHX ####[facility] [place] [address] Immature granulocytes #/vol (Bld) NOT REPORTED Normal [address] [facility] Comment on above: Performed By: #### C DP, BMP, TROPI, TSHX ####[facility] [place] [address].[place] [address] Platelets NOT REPORTED Normal [facility] Comment on above: Performed By: #### C DP, BMP, TROPI, TSHX ####[facility] [place] [address].[place] [address] WBC Morphology NOT REPORTED Normal [facility] Comment on above: Performed By: #### C DP, BMP, TROPI, TSHX ####[facility] [place] [address] Cortisolon 06-28-2017 Cortisol 4.7 ug/dL Normal 2.7-18.[address] [facility] Comment on above: Result Comment: Lukasz isol Reference Range: AM 6.0-18.4 PM 2.7-10.5Performed at [facility] [address] [place] [address] Performed By: #### C ORTI ####[address] [address] #### AALD, AREN ####[address] [address] Collection Info. NOT REPORTED Normal [facility] Comment on above: Performed By: #### C ORTI ####[address] [address] #### AALD, AREN ####[address] [place] [address] Renin Activityon 06-28-2017 Comment: NOT REPORTED Normal [facility] Comment on above: Performed By: #### C ORTI ####[address] [address] #### AALD, AREN ####[address] [address] TSH w/reflex to FT4on 2017 Thyroid stimulating hormone (TSH) 2.65 m[IU]/L Normal 0.30-5.[address] [facility] Comment on above: Result Comment: Perf ormed at [facility] [address] [place] [address] Performed By: #### C DP, BMP, TROPI, TSHX ####[facility] [place] [address] Troponinon 06-28-2017 Troponin I.cardiac mass conc Normal [facility] Comment on above: Result Comment: Refe rence Range: <0.03 Within reference range. 0.03-0.09 Possible myocardial damage.Repeat at appropriate intervals to rule out chronic elevation. >= 0.10 Indicative of myocardial damage.Patients with high levels of Biotin oral intake (i.e >5mg/day) may have falsely decreased Troponin T levels. Samples collected within 8 hours of biotin intake may require additional information for diagnosis.Performed at [facility] [facility] [address] [place] [address] Performed By: #### T ROPI ####[address] [address] Troponin T.cardiac mass conc ug/L Normal <0.[address] [facility] Comment on above: Result Comment: Trop onin T results cannot be compared to Troponin-I results. Performed By: #### T ROPI ####[address] [place] [address] Troponin I.cardiac mass conc Normal [facility] Comment on above: Result Comment: Refe rence Range: <0.03 Within reference range. 0.03-0.09 Possible myocardial damage.Repeat at appropriate intervals to rule out chronic elevation. >= 0.10 Indicative of myocardial damage.Patients with high levels of Biotin oral intake (i.e >5mg/day) may have falsely decreased Troponin T levels. Samples collected within 8 hours of biotin intake may require additional information for diagnosis.Performed at [address] [place] [address] Performed By: #### T ROPI ####[address] [place] [address] Troponin T.cardiac mass conc ug/L Normal <0.[address] [facility] Comment on above: Result Comment: Trop onin T results cannot be compared to Troponin-I results. Performed By: #### T ROPI ####[address] [address] Troponin I.cardiac mass conc Normal [facility] Comment on above: Result Comment: Refe rence Range: <0.03 Within reference range. 0.03-0.09 Possible myocardial damage.Repeat at appropriate intervals to rule out chronic elevation. >= 0.10 Indicative of myocardial damage.Patients with high levels of Biotin oral intake (i.e >5mg/day) may have falsely decreased Troponin T levels. Samples collected within 8 hours of biotin intake may require additional information for diagnosis.Performed at [address] [address] Performed By: #### C DP, BMP, TROPI, TSHX ####[address] [address] Troponin T.cardiac mass conc ug/L Normal <0.[address] [facility] Comment on above: Result Comment: Trop onin T results cannot be compared to Troponin-I results. Performed By: #### C DP, BMP, TROPI, TSHX ####[address] [address] UA w/Reflex Cultureon 2017 Acetaminophen mass conc Negative Normal NEG [facility] Comment on above: Performed By: #### U AX ####[address] [address] Bilirubin (direct) Negative Normal NEG [facility] Comment on above: Performed By: #### U AX ####[address] [address] Comment Microscopic exam not performed based on chemical results unless requested in Normal [facility] Comment on above: Result Comment: orig inal order.Performed at [address] [address] Performed By: #### U AX ####[address] [address] Hemoglobin mass conc (Bld) Negative Normal NEG [facility] Comment on above: Performed By: #### U AX ####[facility] [place] [address] [place] [address] Nitrite,Ur Negative Normal NEG [facility] Comment on above: Performed By: #### U AX ####[facility] [place] [address], [place] [address] Turbidity CLEAR Normal CLEAR [facility] Comment on above: Performed By: #### U AX ####[facility] [place] [address] [place] [address] Urine, color YELLOW Normal YEL [facility] Comment on above: Performed By: #### U AX ####[address] [place] [address] Urine, glucose presence Negative Normal NEG [facility] Comment on above: Performed By: #### U AX ####[address] [place] [address] Urine, leukocyte esterase presence Negative Normal NEG [facility] Comment on above: Performed By: #### U AX ####[address] [place] [address] Urine, pH 5.5 [pH] Normal 5.0-8.[address] [facility] Comment on above: Performed By: #### U AX ####[address] [place] [address] Urine, protein presence Negative Normal NEG [facility] Comment on above: Performed By: #### U AX ####[address] [place] [address] Urine, specific gravity 1.011 Normal 1.000-1.[address] [facility] Comment on above: Performed By: #### U AX ####[address] [place] [address] Urobilinogen,Ur Normal Normal NORM [facility] Comment on above: Performed By: #### U AX ####[facility] [place] [address] Vital Signs Date Time Vital Sign Value Performing Clinician Facility 04-08-2023 10:25-0500 Body height 162.56 cm MD Adina Bunch Work Phone: [facility] 04-08-2023 10:25-0500 Body mass index (BMI) [Ratio] 26.7 kg/m2 MD Adina Bunch Work Phone: [facility] 04-08-2023 10:25-0500 Body weight 70.76 kg MD Adina Bunch Work Phone: [facility] 10-16-2019 15:45-0400 BP Diastolic 64 mm[Hg] [place], [place] 10-16-2019 15:45-0400 BP Systolic 154 mm[Hg] [place] 10-16-2019 08:25-0400 Body Temperature 98.01 [degF] [place], [place] 10-16-2019 08:25-0400 Pulse (Heart Rate) 70 /min [place], [place] 10-16-2019 08:25-0400 Pulse Oximetry 97 % [place] 10-16-2019 08:25-0400 Respiratory Rate 20 /min [place] 10-16-2019 06:15-0400 BMI (Body Mass Index) 25.51 kg/m2 [place], [place] 10-16-2019 06:15-0400 Body weight 67.4 kg [place] 10-15-2019 15:22-0400 Height 162.6 cm [place] 10-13-2019 16:07-0400 Respiratory rate NOT REPORTED [facility] Comment on above: Performed By: #### CDP, CP, LIP, TROPI, LIPRF, GLYHGB #### [facility] [id number] Director Inbound Sales: Brandon Anaya MD 10-13-2019 14:24-0400 Respiratory rate NOT REPORTED Yoon [facility] [place] [place] Encounters Encounter Date Encounter Type Care Provider Facility Start: 04-24-2023 End: 04-24-2023 ambulatory Anju Lees Facility:[facility] Start: 04-17-2023 End: 04-17-2023 ambulatory CURRY A PETITTI Not Available Start: 04-17-2023 End: 04-17-2023 ambulatory MD Adina Bunch Work Phone: [facility] Work Phone: Start: 04-17-2023 End: 04-17-2023 Patient encounter procedure MD Adina Bunch Work Phone: [facility] Work Phone: Start: 04-08-2023 End: 04-08-2023 ambulatory MD Adina Bunch Work Phone: [facility] Work Phone: Start: 04-08-2023 End: 04-08-2023 Patient encounter procedure MD Adina Bunch Work Phone: [facility] Work Phone: Start: 04-08-2023 End: 04-08-2023 ambulatory MD Adina Bunch Work Phone: [facility] Work Phone: Start: 04-08-2023 End: 04-08-2023 Patient encounter procedure MD Adina Bunch Work Phone: [facility] Start: 02-13-2023 End: 02-13-2023 ambulatory DENISHA [...] and management of inpatient DUGLAS S JUDIE [facility] Start: 10-09-2019 End: 10-16-2019 Evaluation and management of inpatient Yoon Barnhart Rogelio Work Phone: [facility] 2 Comment on above: Abdominal aortic ane urysm (AAA) without rupture (HCC) (Primary Dx); Acute low back pain, unspecified back pain laterality, unspecified whether sciatica present; Vertigo; Nausea and vomiting, intractability of vomiting not specified, unspecified vomiting type; Hypertensive urgency Start: 06-27-2017 End: 06-29-2017 Evaluation and management of inpatient ADINA M Evonne [facility] Procedures Date Procedure Procedure Detail Performing [...] Duglas S Judie Work Phone: Start: 10-15-2019 Gluc [...] reagen t strip DUGLAS JUDIE Start: 10-14-2019 Glucose blood reagen [...] Start: 10-14-2019 Glucose blood reagen t strip Dgulas S Judie Work Phone: Start: 10-14-2019 INTAKE [...] Phone: Start: 10-10-2019 Ct angiography neck w/contrast/noncontrast Alfnoso Cyresias Work Phone: Start: 10-10-2019 Glucose blood [...] 10-10-2019 INITIATE OXYGEN THER APY PROTOCOL DUGLAS JUDEI Start: 10-10-2019 Assay of magnesium RANV IR [...] DUGLAS JUDIE Start: 10-09-2019 IP CONSULT TO INTERNAL SALES ENGINEER AL MEDICINE DUGLAS JUDIE Start: 10-09-2019 Ct [...] OR OR/PROCEDURAL) ADINA HOY Start: 06-28-2017 TROPONIN ADINA HO Y Start: 06-28-2017 IP CONSULT TO INTERNAL SALES ENGINEER AL MEDICINE ADINA HOY Start: 06-28-2017 EKG [...] right hand XR hand RT min 3V* [facility] Start: 04-08-2023 XR Hand - right GE 3 Views [facility] Start: 10-14-2020 Creatinine measurement Creatinine mo nitoring [place], [place] Start: 10-14-2020 Potassium monitoring Potassium monit oring [place] Start: 10-26-2019 Influenza vaccination Flu vaccine (# 1) [place] Start: 08-16-2018 Annual Wellness Visi t (AWV) Annual Wellness Visit (AWV) [place] Start: 05-23-2008 Pneumococcal 65+ yea rs Vaccine (1 of 1 - PPSV23) Pneumococcal 65+ years Vaccine (1 of 1 - PPSV23) [place] Start: 05-23-1998 Screening for osteoporosis DEXA (modify frequency per FRAX score) [place] Start: 05-23-1993 Shingles Vaccine (1 of 2) Shingles Vaccine (1 of 2) [place] Start: 05-23-1962 DTaP/Tdap/Td vaccine (1 - Tdap) DTaP/Tdap/Td vaccine (1 - Tdap) [place] End: 10-11-2019 ALBUMIN, CSF ALBUMIN, CSF Lab Routine One Time for 1 Occurrences starting 10/11/2019 until 10/11/2019 [place] Comment on above: One Time for 1 Occur rences starting 10/11/2019 until 10/11/2019 Basic Metabolic Pane l w/ Reflex to MG Basic Metabolic Panel w/ Reflex to MG Lab Routine Daily until discontinued starting 10/10/2019, 7 completed [place] Comment on above: Daily until disconti nued starting 10/10/2019, 7 completed CBC auto differential CBC auto d ifferential Lab Routine Daily until discontinued starting 10/10/2019, 7 completed [place] Comment on above: Daily until disconti nued starting 10/10/2019, 7 completed Culture, Blood 1 [place], [place] End: 10-16-2019 Culture, Urine Culture, Urine Microbiology Routine One Time for 1 Occurrences starting 10/16/2019 until 10/16/2019 [place] Comment on above: One Time for 1 Occur rences starting 10/16/2019 until 10/16/2019 Culture, Urine Culture, Urine Microbiology [employer] Label Print 10/16/2019 1:08 PM EDT [place] Nebulizer therapy HHN Treatment Respiratory Care Routine As Needed until discontinued starting 10/11/2019 [place] Comment on above: As Needed until disc ontinued starting 10/11/2019 Oxygen therapy [[facility] Data Set] Initiate Oxygen Therapy Protocol Respiratory Care Routine Daily until discontinued starting 10/09/2019 [place] Comment on above: Daily until disconti nued starting 10/09/2019 POCT Glucose [place] Comment on above: As Needed until disc ontinued starting 10/09/2019 4X Daily (AC & HS) u ntil discontinued starting 10/09/2019 Immunizations Immunization Date Immunization Notes Care Provider [facility] 12-20-2020 COVID-19 mRNA-1273 (Ramila) MD Adina Bunch Work Phone: [facility] 04-21-2020 COVID-19 mRNA-1273 (Ramila) MD Adina Bunch Work Phone: [facility] 03-24-2020 COVID-19 mRNA-1273 (Ramila) MD Adina Bunch Work Phone: [facility] Payers Date Payer Category Payer Medicare [id number] 2014 Medicare [id number] 1961 Medicare [id number] 1961 Medicare [id number] 1961 Self-pay 1945 Unknown [id number] 2.16.8 [id number] 1945 Unknown [id number] 2.16.84 [id number] 1945 Unknown [id number] 2.16.84 [id number] 1943 Unknown [id number] 2.16.84 0.1.486644.3.579.2.593 1943 Unknown [id number] 2.16.84 [id number] 1943 Unknown [id number] 2.16.84 [id number] 1943 Unknown [id number] 2.16.84 0.1.093293.3.579.2.1259 1943 Unknown [id number] 2.16.840 .[id number] 1943 Unknown [id number] 2.16.840 .1.209425.3.579.2.1259 1943 Unknown [id number] 2.16.840. 1.924962.3.579.2.1259 1943 Unknown [id number] 2.16.840. 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) [place] Sex Assigned At Not on file [place] Exposure to SARS-CoV -2 (event) Not sure [place], [place] Start: 1945 Sex Assigned At Female F [facility] Start: 04-17-2023 Tobacco smoking stat [facility] Ex-smoker (finding) [facility] History and physical note 06-15-2020 Note Date & Type Note Facility 06-15-2020 Note [id number] 5#1.00CD:127 [facility] Clinical Note 06-15-2020 Note Date & Type [...] you have a fever over 100 degrees [facility] History and physical note 05-18-2020 Note Date & Type Note Facility 05-18-2020 Note [id number] 2#1.00CD:127 [facility] Clinical Note 05-18-2020 Note Date & Type [...] you have a fever over 100 degrees [facility] Evaluation note Note Date & Type Note Facility Evaluation note Diagnosis Onset Date Trigger finger, right middle finger acute Trigger finger, right ring finger acute [facility] Work Phone: Summary Purpose Family History No Family History Records Found Relationship Condition Age at Onset Recorded Date/T janki father Malignant neoplasm of lung Unknown Not Specified Myocardial infarction Unknown Advance Directives No Advanced Directives Records FoundDocuments on File Type Date Recorded 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 ACP-Advance Directive ACP-Power of Salon Receptionist Latest Code Status on File Code Status [...] Contact Information Primary Emergency Contact: Deep Mayn[facility] Relation: Spouse Past Surgical History: Past Surgical [...] Assisted Dressing Assisted Toileting Assisted Feeding Assisted Video Production Intern Independent Med Delivery whole Wound Care Documentation [...] NOT a DME order): n/a Other Treatments: longterm, home health aide services Patient's personal belongings (please select all that are sent with patient): patient has all belongings RN SIGNATURE: CASE MANAGEMENT/SOCIAL WORK SECTION Inpatient Status Date: 10-09-2019 Readmission Risk Assessment Score: Readmission Risk Risk of Unplanned Readmission: 12 Discharging to Facility/ Agency Name: [facility] Address: Phone: Fax: Dialysis Facility (if applicable) Name: Address: Dialysis Schedule: Phone: Fax: Supervisor Channel Process/Stabber signature: EDT ICIAN SECTION Prognosis: Fair Condition [...] size monitoring with PCP F/u urologist at [facility] in 1 week for lowe and void trial Take docusate 100 mg daily and miralax 17 g daily. documented in this encounter History of Present Illness * Tami Ni RN - 10/16/2019 5:51 PM EDT Armature Winder Repairer discharged patient @ 1745 by wheelchair off unit with . Armature Winder Repairer went over all discharge paperwork and patient [...] who was admitted as a transfer from [facility] 10/09/2019 where she presented with gradually worsening [...] to ensure the accuracy of this automated branner machine tender, some errors in branner machine tender may have occurred. * Michelle Pelletier MD - 10/16/2019 11:07 AM EDT [facility] Internal Medicine Teaching Residency Program Inpatient Daily Progress Note Patient: Zachary Maynard Date of : 1945 Acct: [id number] Room: Admit date: 10/09/2019 Today's date: 10/16/19 [...] of COPD, primary hypertension was transferred from [facility] for management of infrarenal abdominal aortic aneurysm and for vascular consultation. States she started having lower back pain since . Describes the pain as constant, sharp, 10out of 10 in intensity associated with nausea. Patient went to the emergency department at [facility] to have hypertensive emergency with systolics above 200 and d-dimer was elevated. CT abdomen was done which showed 3.5 infrarenal aortic aneurysm, started on Cardene drip and pain medications we re given. Patient was transferred to [facility] found to be hypoxic in upper 80s, [...] Q4H PRN hydrALAZINE, 10 mg, Q6H PRN kzvqkvdhlh-ihvpaywvrcmic-gdufenon, 1 tablet, Q4H PRN sodium chloride flush, [...] Dwayne Hanson MD Internal Medicine Resident, PGY-1 [facility]; [place], [place] 10/16/2019, 11:07 AM I have discussed [...] 9:31 AM EDT [facility] - Progress Note Today's Date and Time: [...] culture. Medical Decision Making/Summary/Discussion:10/16/2019 Infection Control Recommendations [place] Precautions Antimicrobial Stewardship Recommendations Discontinuation of therapy [...] of . INITIAL HISTORY: Patient transferred from [facility] on 10-09-19 because of low back pain and findings of an infrarenal abdominal aortic aneurysm. Developed onset of back pain on 10-07-19, associated with nausea. She was evaluated at [facility] and found to have a hypertensive emergency with systolic pressures over [address] showed a 3.5 cm infrarenal aortic aneurysm. Her BP was controlled with Cardene drip and the patient was transferred to [facility]. At [facility] patient had signs of hypoxia, and an [...] file Gets together: Not on file Attends restoration service: Not on file Active member of [...] Initial FINDINGS: CTA NECK: AORTIC ARCH/ARCH VESSELS: Uwzr-kh-xuokhzgr atherosclerotic plaque at the arch arch and [...] No acute pulmonary process. Emphysema. Medical Decision Mzmotg-Jpaebkuz-Njfdc: 10/15/2019 12:10 AM - Blanco Moreau Incoming Lab Results From Floored Specimen Information: Blood Component Collected Lab Specimen Description 10/12/2019 2:17 PM [facility] .BLOOD Special Requests 10/12/2019 2:17 PM [facility] back lt arm 3ml Culture 10/12/2019 2:17 PM [facility] NO GROWTH 3 DAYS Medical Decision Making-Other: Note: Labs, medications, radiologic studies were reviewed with personal review of films Large amounts of data were reviewed Discussed with nursing Staff, systems requirements planner Infection Control and Prevention measures reviewed [...] Patel RN - 10/16/2019 6:15 AM EDT Armature Winder Repairer bladder scanned patient and bladder scan shows 554 mL, play writer straight cath patient and was only able [...] loss Fluid Accumulation: 1 - Mild Extremities White Sugar Boiler Strength: Not Performed Estimated Daily Nutrient Needs: Energy (kcal): 1.3-1.4 ~> 7938-7227 kcals/d; Weight Used for Energy Requirements: Admission Protein (g): 1.2-1.4 ~> 65-76 gms/d; Weight Used for Protein Requirements: [facility] Nutrition Related Findings: Na 131 Wounds: None Current Nutrition Therapies: DIET GENERAL; Anthropometric Measures: Height: 5' 4 (162.6 cm) Current Body Weight: 154 lb (69.9 kg) Admission Body Weight: 154 lb (69.9 kg) Usual Body Weight: 160 lb (72.6 kg)(per pt's ) [facility] Body Weight: 120 lbs; % [facility] Body Weight 128.3 % BMI: 26.4 BMI [...] Discharge Planning: Too soon to determine Contact: [phone] * Dwayne Hanson MD - 10/15/2019 3:09 PM EDT [facility] Internal Medicine Teaching Residency Program Inpatient Daily Progress Note Patient: Zachary Maynard Date of : 1945 Acct: [id number] Room: Admit date: 10/09/2019 Today's date: 10/15/19 [...] of COPD, primary hypertension was transferred from [facility] for management of infrarenal abdominal aortic aneurysm and for vascular consultation. States she started having lower back pain since . Describes the pain as constant, sharp, 10out of 10 in intensity associated with nausea. Patient went to the emergency department at [facility] found to have hypertensive emergency with systolics above 200 and d-dimer was elevated. CT abdomenwas done which showed 3.5 infrarenal aortic aneurysm, started on Cardene drip and pain medications were given. Patient was transferred to [facility] found to be hypoxic in upper 80s, [...] Q4H PRN hydrALAZINE, 10 mg, Q6H PRN bclvruogad-pkljwdgfhkoet-nejtwhro, 1 tablet, Q4H PRN sodium chloride flush, [...] Dwayne Hanson MD Internal Medicine Resident, PGY-1 [facility]; [place], [place] 10/15/2019, 3:09 PM Associated attestation - [...] - 10/15/2019 3:09 PM EDT Occupational Therapy [facility] Occupational Therapy Not Seen Note DATE: 10/15/2019 [...] appropriate. Winifred Foster, OT/S * Sho Tierney SENIOR UNDERWRITING ASSISTANT - 10/15/2019 1:55 PM EDT Physical Therapy Facility/Department: [facility] 2 Daily Treatment Note [...] place: No Restraints: all rail up when SENIOR UNDERWRITING ASSISTANT left, okay with pt Therapy Time Individual Concurrent Group Co-treatment Time In 1326 Time Out 1342 Minutes 16 Timed Code Treatment Minutes: 16 Minutes Sho Tierney PTA * Willie Garcia, FIRER ELECTRIC LOCOMOTIVE - INTAKE RN - 10/15/2019 10:38 AM EDT Neurology Nurse [...] who was admitted as a transfer from [facility] 10/09/2019 where she presented with gradually worsening [...] to ensure the accuracy of this automated branner machine tender, some errors in branner machine tender may have occurred. * Sailaja Durán RN - 10/15/2019 9:00 AM EDT Pt straight cathed for 850 cc clear yellow urine. Tolerated well. Will continue to monitor. * Alfonso Kendrick MD - 10/15/2019 8:38 AM EDT [facility] - Progress Note Today's Date and Time: [...] antibiotics Medical Decision Making/Summary/Discussion:10/15/2019 Infection Control Recommendations [place] Precautions Antimicrobial Stewardship Recommendations Discontinuation of therapy [...] of . INITIAL HISTORY: Patient transferred from [facility] on 10-09-19 because of low back pain and findings of an infrarenal abdominal aortic aneurysm. Developed onset of back pain on 10-07-19, associated with nausea. She was evaluated at [facility] and found to have a hypertensive emergency with systolic pressures over [address] showed a 3.5 cm infrarenal aortic aneurysm. Her BP was controlled with Cardene drip and the patient was transferred to [facility]. At [facility] patient had signs of hypoxia, and an [...] file Gets together: Not on file Attends restoration service: Not on file Active member of [...] Initial FINDINGS: CTA NECK: AORTIC ARCH/ARCH VESSELS: Kzgz-zj-deuvjcqv atherosclerotic plaque at the arch arch and [...] No acute pulmonary process. Emphysema. Medical Decision Issixu-Mmbcppdy-Ieplz: 10/15/2019 12:10 AM - PrietoBlanco Incoming Lab Results From Floored Specimen Information: Blood Component Collected Lab Specimen Description 10/12/2019 2:17 PM [facility] .BLOOD Special Requests 10/12/2019 2:17 PM [facility] back lt arm 3ml Culture 10/12/2019 2:17 PM [facility] NO GROWTH 3 DAYS Medical Decision Making-Other: Note: Labs, medications, radiologic studies were reviewed with personal review of films Large amounts of data were reviewed Discussed with nursing Staff, systems requirements planner Infection Control and Prevention measures reviewed [...] Hanson MD - 10/14/2019 1:29 PM EDT [facility] Internal Medicine Teaching Residency Program Inpatient Daily Progress Note Patient: Zachary Maynard Date of : 1945 Acct: [id number] Room: Admit date: 10/09/2019 Today's date: 10/14/19 [...] of COPD, primary hypertension was transferred from [facility] for management of infrarenal abdominal aortic aneurysm and for vascular consultation. States she started having lower back pain since . Describes the pain as constant, sharp, 10out of 10 in intensity associated with nausea. Patient went to the emergency department at [facility] to have hypertensive emergency with systolics above 200 and d-dimer was elevated. CT abdomen was done which showed 3.5 infrarenal aortic aneurysm, started on Cardene drip and pain medications we re given. Patient was transferred to [facility] found to be hypoxic in upper 80s, [...] Q4H PRN hydrALAZINE, 10 mg, Q6H PRN rzvunwhinl-iekhduwyalsck-dkeaiwkg, 1 tablet, Q4H PRN sodium chloride flush, [...] Dwayne Hanson MD Internal Medicine Resident, PGY-1 [facility]; [place], [place] 10/14/2019, 1:29 PM Associated attestation - [...] by Michelle Pelletier MD * Jose Willie, FIRER ELECTRIC LOCOMOTIVE - INTAKE RN - 10/14/2019 11:22 AM EDT Neurology Nurse [...] who was admitted as a transfer from [facility] 10/09/2019 where she presented with gradually worsening [...] to ensure the accuracy of this automated branner machine tender, some errors in branner machine tender may have occurred. * Alfonso Kendrick MD - 10/14/2019 10:10 AM EDT [facility] - Progress Note Today's Date and Time: [...] antibiotics Medical Decision Making/Summary/Discussion:10/14/2019 Infection Control Recommendations [place] Precautions Antimicrobial Stewardship Recommendations Discontinuation of therapy [...] of . INITIAL HISTORY: Patient transferred from [facility] on 10-09-19 because of low back pain and findings of an infrarenal abdominal aortic aneurysm. Developed onset of back pain on 10-07-19, associated with nausea. She was evaluated at [facility] and found to have a hypertensive emergency with systolic pressures over [address] showed a 3.5 cm infrarenal aortic aneurysm. Her BP was controlled with Cardene drip and the patient was transferred to [facility]. At [facility] patient had signs of hypoxia, and an [...] file Gets together: Not on file Attends restoration service: Not on file Active member of [...] Initial FINDINGS: CTA NECK: AORTIC ARCH/ARCH VESSELS: Ekxr-aa-hkrurcha atherosclerotic plaque at the arch arch and [...] No acute pulmonary process. Emphysema. Medical Decision Prhblq-Qacqpuyi-Kyiup: Medical Decision Making-Other: Note: Labs, medications, radiologic studies were reviewed with personal review of films Large amounts of data were reviewed Discussed with nursing Staff, systems requirements planner Infection Control and Prevention measures reviewed [...] Ferris RN - 10/13/2019 10:40 PM EDT Armature Winder Repairer contacted internal med regarding pt complaining of lower abdominal pain. States she has to void but is unable to. Bladder scanned her just now and >999. New order for one time straight cath. Straight cath completed at 2315. 900ml clear, yellow urine out with 63ml residual. Will continue to monitor. 0430- Armature Winder Repairer contacted internal med regarding pt unable to void. Bladder scan shows 490. One time straight cath order placed at 0610. New bladder scan shows 571. Cath completed at 0645. 550ml clear, yellow urine out with 16ml residual. Will continue to monitor. Internal med also made aware that pt has not had bowel movement since admission. Mirilax administered. Bowel sounds active. * Linda Adhikari, SENIOR UNDERWRITING ASSISTANT - 10/13/2019 4:16 PM EDT Physical Therapy Facility/Department: [facility] Daily Treatment Note NAME: Zachary Maynard [...] Hanson MD - 10/13/2019 9:30 AM EDT [facility] Internal Medicine Teaching Residency Program Inpatient Daily Progress Note Patient: Zachary Maynard Date of : 1945 Acct: [id number] Room: Admit date: 10/09/2019 Today's date: 10/13/19 Number of days in the hospital: 4 SUBJECTIVE Admitting Diagnosis: Aneurysm of infrarenal abdominal aorta (HCC) CC: Midline Lower Back Pain Pt examined at bedside. Chart & results reviewed. BP increased overnight - Railroad Carman Brim Cutter gave Norvasc and started IV Hydralazine early [...] of COPD, primary hypertension was transferred from [facility] for management of infrarenal abdominal aortic aneurysm and for vascular consultation. States she started having lower back pain since . Describes the pain as constant, sharp, 10out of 10 in intensity associated with nausea. Patient went to the emergency department at [facility] to have hypertensive emergency with systolics above 200 and d-dimer was elevated. CT abdomen was done which showed 3.5 infrarenal aortic aneurysm, started on Cardene drip and pain medications we re given. Patient was transferred to [facility] found to be hypoxic in upper 80s, [...] Q4H PRN hydrALAZINE, 10 mg, Q6H PRN faqnzeptiw-bhnqkpwwibmcm-ckfkkucs, 1 tablet, Q4H PRN sodium chloride flush, [...] R Valentin, MD Internal Medicine Resident, PGY-1 [facility]; [place], [place] 10/13/2019, 9:31 AM Associated attestation - [...] problems. * Overall course ; show no loom changeover operator time. Headache is improved Blood pressure improved Ultrasound renal duplex, concerning for unilateral renal artery stenosis Patient very sleepy Has tenderness in lower back X-ray lumbar spine done at the time of admission, concerning for possible fracture Ordering MRI lumbar spine Electronically signed by Michelle Pelletier MD * Viry Morelos, FLAQUITO - INTAKE RN - 10/13/2019 8:44 AM EDT NEUROLOGY INPATIENT [...] negative for acute changes -IV Depacon 500mg I5huapd x3 doses -Continued blood pressure management as [...] to ensure the accuracy of this automated branner machine tender, some errors in branner machine tender may have occurred. * Alfonso Kendrick MD - 10/13/2019 7:57 AM EDT [facility] - Progress Note Today's Date and Time: 10/13/2019, 7:57 AM Impression : Fever, etiology to be determined Intermittent Headaches, most likely side effect of the various medications being given for control of HTN. No apparent meningitis Low back pain Aneurysm infrarenal abdominal aorta Centrilobular emphysema Allergy to quinolones, sulfa Recommendations: Monitor off antibiotics Medical Decision Making/Summary/Discussion:10/13/2019 Infection Control Recommendations [place] Precautions Antimicrobial Stewardship Recommendations Discontinuation of therapy [...] of . INITIAL HISTORY: Patient transferred from [facility] on 10-09-19 because of low back pain and findings of an infrarenal abdominal aortic aneurysm. Developed onset of back pain on 10-07-19, associated with nausea. She was evaluated at [facility] and found to have a hypertensive emergency with systolic pressures over [address] showed a 3.5 cm infrarenal aortic aneurysm. Her BP was controlled with Cardene drip and the patient was transferred to [facility]. At [facility] patient had signs of hypoxia, and an [...] file Gets together: Not on file Attends restoration service: Not on file Active member of [...] Initial FINDINGS: CTA NECK: AORTIC ARCH/ARCH VESSELS: Kxbl-zh-gsvczeei atherosclerotic plaque at the arch arch and [...] No acute pulmonary process. Emphysema. Medical Decision Kuzhhr-Xhcmwrue-Fmrof: Medical Decision Making-Other: Note: Labs, medications, radiologic studies were reviewed with personal review of films Large amounts of data were reviewed Discussed with nursing Staff, systems requirements planner Infection Control and Prevention measures reviewed All prior entries were reviewed Administer medications as ordered Prognosis: Guarded Discharge planning reviewed Follow up as outpatient. Thank you for allowing us to participate in the care of this patient. Please call with questions. Dickson Hutchinson DPM Pager: - Office: * Divina Ferris RN - 10/13/2019 3:00 AM EDT Armature Winder Repairer contacted internal med regarding pt blood pressure. [...] administer. New order for PO 10mg norvasc. Armature Winder Repairer will continue to monitor BP and pain. * Alfonso Kendrick MD - 10/12/2019 4:32 PM EDT [facility] - Progress Note Today's Date and Time: 10/12/2019, 4:32 PM Impression : Fever, etiology to be determined Intermittent Headaches, most likely side effect of the various medications being given for control of HTN. No apparent meningitis Low back pain Aneurysm infrarenal abdominal aorta Centrilobular emphysema Allergy to quinolones, sulfa Recommendations: Monitor off antibiotics Blood, urine cultures Medical Decision Making/Summary/Discussion:10/12/2019 Infection Control Recommendations [place] Precautions Antimicrobial Stewardship Recommendations Discontinuation of therapy [...] of . INITIAL HISTORY: Patient transferred from [facility] on 10-09-19 because of low back pain and findings of an infrarenal abdominal aortic aneurysm. Developed onset of back pain on 10-07-19, associated with nausea. She was evaluated at [facility] and found to have a hypertensive emergency with systolic pressures over [address] showed a 3.5 cm infrarenal aortic aneurysm. Her BP was controlled with Cardene drip and the patient was transferred to [facility]. At [facility] patient had signs of hypoxia, and an [...] file Gets together: Not on file Attends restoration service: Not on file Active member of [...] Initial FINDINGS: CTA NECK: AORTIC ARCH/ARCH VESSELS: Rfat-zp-mlulesgm atherosclerotic plaque at the arch arch and [...] No acute pulmonary process. Emphysema. Medical Decision Yzevtw-Bmocztef-Qivtf: Medical Decision Making-Other: Note: Labs, medications, radiologic studies were reviewed with personal review of films Large amounts of data were reviewed Discussed with nursing Staff, systems requirements planner Infection Control and Prevention measures reviewed All prior entries were reviewed Administer medications as ordered Prognosis: Guarded Discharge planning reviewed Follow up as outpatient. Thank you for allowing us to participate in the care of this patient. Please call with questions. Alfonso Kendrick MD Pager: - Office: * Malissa Anderson, SENIOR UNDERWRITING ASSISTANT - 10/12/2019 2:55 PM EDT Physical Therapy [...] palliative care. No further needs. Malissa Anderson, SENIOR UNDERWRITING ASSISTANT * Montserrat Finnegan OTA - 10/12/2019 2:26 PM EDT Occupational Therapy Not Seen Note DATE: 10/12/2019 Name: Zachary Maynard : 1945 Patient not available for Occupational Therapy due to: RN cx d/t pt not feeling well and has a fever. Next Scheduled Treatment: 10/13/2019 * Denys Morris MD - 10/12/2019 1:53 PM EDT [facility] Internal Medicine Teaching Residency Program Inpatient Daily Progress Note Patient: Zachary Maynard Date of : 1945 Acct: [id number] Room: Admit date: 10/09/2019 Today's date: 10/12/19 [...] Q4H PRN hydrALAZINE, 10 mg, Q6H PRN vfxtztuiwt-zpnkugpczfjyp-oiggrhhh, 1 tablet, Q4H PRN sodium chloride flush, [...] Denys Morris MD Internal Medicine Resident, PGY-3 [facility]; [place], [place] 10/12/2019, 1:53 PM * Michelle Pelletier MD - 10/12/2019 1:07 PM EDT Patient seen and examined Little sleepy, clonidine discontinued Hypertension controlled Headache improved MRI brain reviewed concerning for meningioma Work-up for secondary hypertension progress * Viry Morelos, FLAQUITO - INTAKE RN - 10/12/2019 6:51 AM EDT NEUROLOGY INPATIENT [...] Take 10 mg by mouth nightly Allergies: Zacahry Maynard is allergic to avelox [moxifloxacin]; demerol [...] to ensure the accuracy of this automated branner machine tender, some errors in branner machine tender may have occurred. * Divina Ferris RN - 10/11/2019 10:20 PM EDT Armature Winder Repairer contacted internal med regarding pt headache of 3/10. Pt has IV toradol and reglan ordered. Pt is alert and oriented x2. Armature Winder Repairer instructed to hold IV toradol and reglan and to administer PRN tylenol for the headache. Will continue to monitor. * Divina Ferris RN - 10/11/2019 10:20 PM EDT Armature Winder Repairer contacted internal med regarding blood pressure 161/62 and temp of 99.9 after administering scheduled clonidine and lopressor. Pt rating headache 3/10. Armature Winder Repairer instructed to hold scheduled IV toradol and reglan. 0435- Armature Winder Repairer contacted internal med regarding BP. Armature Winder Repairer unable to keep SBP <160. Armature Winder Repairer administered PRN IV hydralazine at 2315 for a pressure in the 170s, pressure went to the 160s then back up.IV labetalol administered at 0315 for SBP in the low 180s. Pressure still in the 170s. No new orders at this time. Armature Winder Repairer instructed to continue to monitor. 0530- IV hydralazine and PO fioricet administered. No new orders at this time. Will continue to monitor BP. * Divina Ferris RN - 10/11/2019 10:15 PM EDT Armature Winder Repairer received call from Dr. Kendrick regarding pt [...] Hanson MD - 10/11/2019 2:46 PM EDT [facility] Internal Medicine Teaching Residency Program Inpatient Daily Progress Note Patient: Zachary Maynard Date of : 1945 Acct: [id number] Room: Admit date: 10/09/2019 Today's date: 10/11/19 [...] of COPD, primary hypertension was transferred from [facility] for management of infrarenal abdominal aortic aneurysm and for vascular consultation. States she started having lower back pain since . Describes the pain as constant, sharp, 10out of 10 in intensity associated with nausea. Patient went to the emergency department at [facility] to have hypertensive emergency with systolics above 200 and d-dimer was elevated. CT abdomen was done which showed 3.5 infrarenal aortic aneurysm, started on Cardene drip and pain medications we re given. Patient was transferred to [facility] found to be hypoxic in upper 80s, [...] Q4H PRN hydrALAZINE, 10 mg, Q6H PRN waxqpewgzu-rtjvbkctajzmh-bzbuajfc, 1 tablet, Q4H PRN sodium chloride flush, [...] Dwayne Hanson MD Internal Medicine Resident, PGY-1 [facility]; [place], [place] 10/11/2019, 2:46 PM * Michelle Pelletier [...] Ambulation Assistance: Independent Transfer Assistance: Independent Active Loom Changeover Operator: Yes Occupation: Retired Additional Comments: pt reported [...] 8 Minutes Radha Vogel OTR/L * Usman Arambula, PT - 10/11/2019 12:17 PM EDT Physical Therapy Facility/Department: [place] [id number] Initial Assessment NAME: Zachary Maynard : 1945 [...] Ambulation Assistance: Independent Transfer Assistance: Independent Active Loom Changeover Operator: Yes Occupation: Retired Additional Comments: pt reported [...] RN - 10/11/2019 12:[address] Pelletier notified of pt. Claustrophobia and her needing an MRI. Orders received. * Viry Morelos APRN - INTAKE RN - 10/11/2019 7:24 AM EDT NEUROLOGY INPATIENT [...] of Toradol 15mg, Reglan 5mg, Benadryl 12.5mg s4bvjhh x3 -Continued blood pressure management as you are doing -May consider LP through IR for persistent headache -We will follow Please note that this note was generated using a voice recognition dictation software. Although every effort was made to ensure the accuracy of this automated branner machine tender, some errors in branner machine tender may have occurred. * Marely Guardado RN - 10/10/2019 9:18 PM EDT Perfect served air conditioner installer helper intermed: Patient is due to get 100mg [...] Hanson MD - 10/10/2019 11:58 AM EDT [facility] Internal Medicine Teaching Residency Program Inpatient Daily Progress Note Patient: Zachary Maynard Date of : 1945 Acct: [id number] Room: Admit date: 10/09/2019 Today's date: 10/10/19 [...] of COPD, primary hypertension was transferred from [facility] for management of infrarenal abdominal aortic aneurysm and for vascular consultation. States she started having lower back pain since . Describes the pain as constant, sharp, 10out of 10 in intensity associated with nausea. Patient went to the emergency department at [facility] to have hypertensive emergency with systolics above 200 and d-dimer was elevated. CT abdomen was done which showed 3.5 infrarenal aortic aneurysm, started on Cardene drip and pain medications we re given. Patient was transferred to [facility] found to be hypoxic in upper 80s, [...] Dwayne Hanson MD Internal Medicine Resident, PGY-1 [facility]; [place], [place] 10/10/2019, 12:00 PM * Duglas Rodrigues [...] Prieto DO - 10/09/2019 4:07 AM EDT [facility] ED Emergency Department Emergency Medicine Resident Sign-out [...] PRN Last APR action: Given - by SAMMIE VERGARA on 10/09/19 at 0643 JOEL MELTON [...] a 74 y.o. Female with transfer from [facility]. Low back pain since . 3.4 infrarenal [...] [] Eloped FOLLOW-UP: Adina Bunch MD [id number] [id number] DISCHARGE MEDICATIONS: New Prescriptions No medications on [...] section and content) DATE CREATED AUTHOR 08/13/2017 [facility] DATE CREATED AUTHOR AUTHOR'S ORGANIZ ATION 11/03/2019 [facility] DATE CREATED AUTHOR AUTHOR'S ORGANIZ ATION 11/29/2020 [facility] DATE CREATED AUTHOR AUTHOR'S ORGANIZ ATION 06/18/2022 [facility] DATE CREATED AUTHOR AUTHOR'S ORGANIZ ATION 04/25/2023 [facility] EPIC DATE CREATED AUTHOR AUTHOR'S ORGANIZ ATION 05/09/2023 [facility] Reason for Visit (unrecogniz ed section and content) Reason Comments Abdominal Pain Back Pain Status Reason Specialty Diagnoses / Procedures Referre d By Contact Referred To Contact Diagnoses AAA (abdominal aortic aneurysm) (HCC) Duglas Rodrigues MD [address] [place] [address] [facility] Care Teams (unrecognized sec tion and content) [...] BE BASED ON THE PRIMARY CLINICAL RECORDS. [employer] provides no warranty or guarantee of the accuracy or completeness of information in this document.
[2023-11-26 16:26] LABS: Glucometer 102 mg/dL (74-106)
[2023-11-26] MEDS: LACTATED RINGER'S SOLUTION 1,000 ML 50 ML IV (16:59)
[2023-11-26 17:34] LABS: Magnesium 1.8 mg/dL (1.8-2.4)
[2023-11-26 17:39] LABS: Troponin I High Sensitivity 175.5 pg/mL (4.0-51.3)
[2023-11-26] MEDS: APIXABAN 5 MG TABLET PO (17:55)
[2023-11-26] MEDS: DILTIAZEM HCL 60 MG TABLET PO ×2 (17:55→21:00)
--- NOTE | 2023-11-26 18:45 | PM.HP ---
HPI H&P: HPI History of Present Illness Chief complaint: AFIB/SOB/WEAKNESS Narrative: Patient having workup for heart palpitations and some mild tachycardia in the past, she recently sent in her Holter monitor, she was in the facility getting an echocardiogram which she is found to be in atrial fibrillation with rapid ventricular response. She does not have a history of atrial fibrillation with rapid ventricular response and was referred to the emergency room. In the emergency room the workup initially was normal with a troponin that was negative. She was given 1 dose of IV Cardizem and she converted back to normal sinus rhythm When I saw patient up on the medical surgical floor, she was resting comfortably in bed without complaint. Patient denied chest pain throughout the entire event Opioid HPI Opioid Management Most Recent Pain and Opioid Data: Last Pain Assessment 11/26/23 17:57 Last ORT Total Score 1 11/26/23 14:04 Last ORT Risk Category Low Risk 11/26/23 14:04 Review of Systems ROS Status of ROS 10 or more systems reviewed and unremarkable except as noted in history and below PFSH PFSH Medical History (Updated 11/26/23 @ 14:15 by Tatiana Stewart DO) COPD (chronic obstructive pulmonary disease) ?J44.9 - Chronic obstructive pulmonary disease, unspecified (ICD-10) History of uterine cancer ?Z85.42 - Personal history of malignant neoplasm of other parts of uterus (ICD-10) Edema ?R60.9 - Edema, unspecified (ICD-10) Diabetes ?E11.9 - Type 2 diabetes mellitus without complications (ICD-10) HTN (hypertension) ?I10 - Essential (primary) hypertension (ICD-10) Surgical History (Updated 11/26/23 @ 14:11 by Darlyn Sterling RN) H/O: hysterectomy ?Z90.710 - Acquired absence of both cervix and uterus (ICD-10) Family History (Updated 11/26/23 @ 14:12 by Darlyn Sterling RN) Father Family history of cancer Family history of COPD (chronic obstructive pulmonary disease) Mother Family history of diabetes mellitus Family history of hypertension Family history of myocardial infarction Family history of CHF (congestive heart failure) Social History (Updated 11/26/23 @ 14:13 by Darlyn Sterling RN) Within the past year, how often did you have a drink containing alcohol: never Score interpretation: A score less than 3 is consistent with normal alcohol consumption. Smoking status: Former smoker Non-prescribed substance use: denies use Highest level of school completed/degree received: 9th grade Little interest or pleasure in doing things: not at all Feeling down, depressed, or hopeless: not at all Meds Home Medications and Allergies Home Medications ?Medication ?Instructions ?Recorded ?Confirmed ?Type albuterol sulfate 90 mcg/actuation 2 puff inhalation Q4H PRN 11/23/23 11/26/23 History aerosol inhaler shortness of breath or wheezing ezetimibe 10 mg tablet 10 mg PO DAILY 11/23/23 11/26/23 History hydrochlorothiazide 25 mg tablet 50 mg PO DAILY hypertension 11/23/23 11/26/23 History ropinirole 0.5 mg tablet 0.5 mg PO .QHS 11/23/23 11/26/23 History tiotropium bromide 18 mcg capsule 1 cap inhalation DAILY 11/23/23 11/26/23 History with inhalation device empagliflozin 10 mg tablet 10 mg PO DAILY PRN High blood sugar 11/26/23 11/26/23 History (Jardiance) furosemide 20 mg tablet 20 mg PO DAILY PRN edema 11/26/23 11/26/23 History memantine 28 mg capsule 28 mg PO Q24H 11/26/23 11/26/23 History sprinkle,extended release 24hr metformin 500 mg tablet,extended 500 mg PO BID 11/26/23 11/26/23 History release 24 hr Allergies Allergy/AdvReac Type Severity Reaction Status Date / Time meperidine [From Demerol] AdvReac Severe Anaphylaxis Verified 11/23/23 15:22 Exam Constitutional Vital Signs, click to edit/add: Last Vital Signs Temp 98.1 F 11/26/23 14:04 Pulse 76 11/26/23 17:53 Resp 18 11/26/23 16:27 BP 155/74 H 11/26/23 16:27 Pulse Ox 96 11/26/23 16:27 O2 Del Method Room Air 11/26/23 16:27 Documenting provider has reviewed patient's vital signs: yes Common normals: no apparent distress Chest Common normals: inspection of chest normal Respiratory Common normals: normal respiratory effort and no retractions Auscultation: rhonchi (Minimal) Cardio Common normals: regular rate, regular rhythm and no murmurs Extremity Common normals: no clubbing, cyanosis or edema Results Labs Labs: Short CBC 11/26/23 Range/Units 12:03 WBC 8.8 (4.0-11.0) 10^3/uL Hgb 11.4 L (12.0-16.0) g/dL Hct 36.3 (36.0-48.0) % Plt Count 281 (150-450) 10^3/uL BMP 11/26/23 11:06 Sodium 137 Potassium 3.6 Chloride 102 Carbon Dioxide 25.8 BUN 14.0 Creatinine 1.23 H Glucose 110 H Calcium 9.8 Liver Function 11/26/23 Range/Units 11:06 Total Bilirubin 0.5 (0.2-1.0) mg/dL AST 14 L (15-37) U/L ALT 13 L (14-59) U/L Alkaline Phosphatase 89 (46-116) U/L Albumin 2.7 L (3.4-5.0) g/dL Urine 11/26/23 Range/Units 11:06 Urine Color Lt. yellow (YELLOW) Urine Clarity Clear (CLEAR) Urine pH 7.0 (5.0-9.0) Ur Specific [place] <=1.005 A (1.005-1.025) Urine Protein Negative (NEG/TRACE) mg/dL Urine Glucose (UA) Negative (NEGATIVE) mg/dL Assessment and Plan Assessment and Plan (1) Atrial fibrillation: (2) Dehydration: (3) Upper respiratory infection:
[2023-11-26] MEDS: LEVOFLOXACIN IN DEXTROSE 5 % 750 MG/150 ML PREMIX 100 MG IV (20:57)
[2023-11-26 21:35] LABS: Troponin I High Sensitivity 148.9 pg/mL (4.0-51.3)
[2023-11-27] VITALS (24 sets, daily range): BP systolic 126–158; BP diastolic 69–82; PULSE 54–89; TEMP 36.1–37; O2SAT 90–98
[2023-11-27] MEDS: ROPINIROLE HCL 0.25 MG TABLET 0.5 MG PO ×2 (01:00→22:10)
[2023-11-27] MEDS: IPRATROPIUM BROMIDE 0.5 MG/2.5 ML VIAL.NEB IH ×4 (05:02→20:36)
[2023-11-27] MEDS: DILTIAZEM HCL 60 MG TABLET PO (05:33)
[2023-11-27 05:40] LABS: Basophils Percent Auto 0.3 % (0.2-2.0); Eosinophils Absolute Auto 0.2 10^3/uL (0.0-0.7); Hematocrit 29.8 % (36.0-48.0); Hemoglobin 9.6 g/dL (12.0-16.0); Immature Granulocytes Abs Auto 0.06 10^3/uL (0.00-0.03); Immature Granulocytes Pct Auto 0.9 % (0.0-0.5); Lymphocytes Absolute Auto 1.5 10^3/uL (1.2-3.8); Lymphocytes Percent Auto 22.5 % (20.5-60.0); Mean Corpuscular HGB Conc 32.2 g/dL (29.9-35.2); Mean Corpuscular Hemoglobin 28.1 pg (26.7-34.0); Mean Corpuscular Volume 87.1 fL (81.0-99.0); Mean Platelet Volume 9.8 fL (9.5-13.5); Monocytes Absolute Auto 0.6 10^3/uL (0.3-0.8); Monocytes Percent Auto 8.3 % (1.7-12.0); Neutrophils Absolute Auto 4.3 10^3/uL (1.4-6.5); Platelet Count 262 10^3/uL (150-450); Red Blood Count 3.42 10^6/uL (4.20-5.40); Red Cell Distribution Width 15.5 % (11.0-15.0); White Blood Count 6.6 10^3/uL (4.0-11.0)
[2023-11-27 05:52] LABS: Anion Gap 10.8; BUN Creatinine Ratio 8.6; Calcium 9.1 mg/dL (8.5-10.1); Carbon Dioxide 27.5 mmol/L (21.0-32.0); Chloride 102 mmol/L (98-107); Estimated GFR (African America 49 (>=60 mL/min/1.73m^2); Estimated GFR (Non-African Ame 40 (>=60 mL/min/1.73m^2); Glucose 102 mg/dL (74-106); Potassium 3.3 mmol/L (3.5-5.1); Sodium 137 mmol/L (136-145)
--- NOTE | 2023-11-27 06:00 | ECG_ITS ---
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
[2023-11-27 06:19] LABS: Troponin I High Sensitivity 102.3 pg/mL (4.0-51.3)
[2023-11-27 07:32] LABS: TSH W/ REFLEX FT4 1.654 uIU/mL (0.358-3.740)
--- NOTE | 2023-11-27 08:12 | P.PN_ITS ---
Progress Note: Subjective Subjective Interval history: Patient to the episodes last night of atrial fibrillation with rapid ventricular response both lasted fairly short, minutes, patient did have some tightness in her chest and shortness of breath at the time of the episodes. No hypoxia Exam Constitutional Vital Signs, click to edit/add: Last Vital Signs Temp 96.9 F L 11/27/23 07:57 Pulse 64 11/27/23 07:59 Resp 18 11/27/23 07:59 BP 128/80 11/27/23 07:57 Pulse Ox 97 11/27/23 07:57 O2 Del Method Nasal Cannula 11/27/23 07:57 O2 Flow Rate 2 11/27/23 07:57 Documenting provider has reviewed patient's vital signs: yes Common normals: no apparent distress Chest Common normals: inspection of chest normal Respiratory Common normals: normal respiratory effort and no retractions Auscultation: rhonchi (Minimal) Cardio Common normals: regular rate, regular rhythm and no murmurs Extremity Common normals: no clubbing, cyanosis or edema Progress Note: Objective Labs Labs: Short CBC 11/26/23 11/27/23 Range/Units 12:03 05:34 WBC 8.8 6.6 (4.0-11.0) 10^3/uL Hgb 11.4 L 9.6 L (12.0-16.0) g/dL Hct 36.3 29.8 L (36.0-48.0) % Plt Count 281 262 (150-450) 10^3/uL BMP 11/26/23 11/27/23 11:06 05:34 Sodium 137 137 Potassium 3.6 3.3 L Chloride 102 102 Carbon Dioxide 25.8 27.5 BUN 14.0 11.0 Creatinine 1.23 H 1.28 H Glucose 110 H 102 Calcium 9.8 9.1 Liver Function 11/26/23 Range/Units 11:06 Total Bilirubin 0.5 (0.2-1.0) mg/dL AST 14 L (15-37) U/L ALT 13 L (14-59) U/L Alkaline Phosphatase 89 (46-116) U/L Albumin 2.7 L (3.4-5.0) g/dL Urine 11/26/23 Range/Units 11:06 Urine Color Lt. yellow (YELLOW) Urine Clarity Clear (CLEAR) Urine pH 7.0 (5.0-9.0) Ur Specific [place] <=1.005 A (1.005-1.025) Urine Protein Negative (NEG/TRACE) mg/dL Urine Glucose (UA) Negative (NEGATIVE) mg/dL Progress Note: A&P Assessment and Plan (1) Atrial fibrillation: (2) Dehydration: (3) Upper respiratory infection: Plan Admission findings: Tachycardia, respiratory distress, uncontrolled hypertension, elevated BNP consistent with atrial fibrillation with rapid ventricular response with acute systolic heart failure Atrial fibrillation with rapid ventricular response-echocardiogram really pretty good with no increase in atrial size, she has had 2 further episodes since admission, will change patient to metoprolol and add Imdur due to elevated high- sensitivity troponins, consult to cardiology, consideration for heart cath with elevated troponins possibly rate dependent ischemia, elevated BNP-improved today Uncontrolled hypertension-change patient to metoprolol Hypokalemia-supplement Iron deficiency anemia-monitor daily Diabetes mellitus-insulin sliding scale Moderate protein calorie malnutrition-diet management Acute kidney injury-baseline creatinine of 0.98, admission creatinine of 1.23 which is 125% above baseline. Elevated somewhat today. Admission status: Patient will likely require 1 additional hospital stay so continuous inpatient status is medically necessary treatment will span 2 midnights. Possible transfer for cardiac catheterization based on information as outlined above, checking on plan from cardiology
[2023-11-27] MEDS: TRIAMCINOLONE ACETONIDE 0.1% CREAM 15 GM TUBE 1 APPLIC TOPICAL ×2 (09:12→20:18)
[2023-11-27] MEDS: POTASSIUM CHLORIDE 10 MEQ ER TABLET 20 MEQ PO ×2 (09:13→20:17)
[2023-11-27] MEDS: MEMANTINE HCL 28 MG CAP XR PO (09:13)
[2023-11-27] MEDS: METFORMIN HCL 500 MG TAB.ER.24H PO (09:14)
[2023-11-27] MEDS: METOPROLOL TARTRATE 25 MG TABLET 50 MG PO ×2 (09:14→20:17)
[2023-11-27] MEDS: EZETIMIBE 10 MG TABLET PO (09:14)
[2023-11-27] MEDS: APIXABAN 5 MG TABLET PO ×2 (09:14→20:18)
--- NOTE | 2023-11-27 11:39 | SWNOTE1 ---
Important Message from Medicare reviewed and discussed with patient. Pt. verbalized understanding and signed the form. Original given to patient and copy placed in patient?s chart. SW met with pt to discuss dc needs. Pt lives at home with in a 1 story home. Pt has a walker that she uses at home when she feels dizzy or when she is out and about. Pt stated she does still drive, but has not in past few weeks due to not feeling well. At this time unsure of dc needs, pt stated she is waiting to see cardiology. SW to follow as needed.
--- NOTE | 2023-11-27 12:11 | PM.CN ---
Consult Note: HPI Data of Consult Patient: new to practice Consult date: 11/27/23 Requesting Physician: Velasquez Langley MD Primary Care Provider: Velasquez Langley MD Consult Narrative Reason for consult: New Onset A fib with RVR Narrative: 78 yo female with new onset A fib with RVR noted during outpt echocardiogram and then was sent to ED for evaluation. She received Cardizem IV and converted back into Sinus rhythm. She denied any personal history of cardiac disease, cardiac surgery or procedures in the past. She does admit over the last 2-3 weeks she has had a chest cold, productive cough of thick green sputum, denied fever/chills. Admits that she has been more short of breath with exertion especially this week. She just completed a holter monitor for her PCP. Assessed at bedside. No acute events overnight. Remains in sinus rhythm currently. Admits SOB with walking in room and mild exertion. Admits occasional lightheadedness/dizziness with position changes, but denied syncope. reports that she looks unsteady, off balance sometimes with walking. She is currently on Oxygen via [place]- she typically does not wear oxygen at home. cc:: CC: Velasquez Langley MD Review of Systems ROS Status of ROS 10 or more systems reviewed and unremarkable except as noted in history and below Cardiovascular Reports: shortness of breath with exertion and shortness of breath when lying down (at times) Respiratory Reports: cough PFSH PFSH Medical History COPD (chronic obstructive pulmonary disease) ?J44.9 - Chronic obstructive pulmonary disease, unspecified (ICD-10) History of uterine cancer ?Z85.42 - Personal history of malignant neoplasm of other parts of uterus (ICD-10) Edema ?R60.9 - Edema, unspecified (ICD-10) Diabetes ?E11.9 - Type 2 diabetes mellitus without complications (ICD-10) HTN (hypertension) ?I10 - Essential (primary) hypertension (ICD-10) Surgical History H/O: hysterectomy ?Z90.710 - Acquired absence of both cervix and uterus (ICD-10) Family History Father Family history of cancer Family history of COPD (chronic obstructive pulmonary disease) Mother Family history of diabetes mellitus Family history of hypertension Family history of myocardial infarction Family history of CHF (congestive heart failure) Social History (Updated 11/26/23 @ 14:13 by Darlyn Sterling RN) Within the past year, how often did you have a drink containing alcohol: never Score interpretation: A score less than 3 is consistent with normal alcohol consumption. Smoking status: Former smoker Non-prescribed substance use: denies use Highest level of school completed/degree received: 9th grade Little interest or pleasure in doing things: not at all Feeling down, depressed, or hopeless: not at all Meds Home Medications and Allergies Home Medications ?Medication ?Instructions ?Recorded ?Confirmed ?Type albuterol sulfate 90 mcg/actuation 2 puff inhalation Q4H PRN 11/23/23 11/26/23 History aerosol inhaler shortness of breath or wheezing ezetimibe 10 mg tablet 10 mg PO DAILY 11/23/23 11/26/23 History hydrochlorothiazide 25 mg tablet 50 mg PO DAILY hypertension 11/23/23 11/26/23 History ropinirole 0.5 mg tablet 0.5 mg PO .QHS 11/23/23 11/26/23 History tiotropium bromide 18 mcg capsule 1 cap inhalation DAILY 11/23/23 11/26/23 History with inhalation device empagliflozin 10 mg tablet 10 mg PO DAILY PRN High blood sugar 11/26/23 11/26/23 History (Jardiance) furosemide 20 mg tablet 20 mg PO DAILY PRN edema 11/26/23 11/26/23 History memantine 28 mg capsule 28 mg PO Q24H 11/26/23 11/26/23 History sprinkle,extended release 24hr metformin 500 mg tablet,extended 500 mg PO BID 11/26/23 11/26/23 History release 24 hr Allergies Allergy/AdvReac Type Severity Reaction Status Date / Time meperidine [From Demerol] AdvReac Severe Anaphylaxis Verified 11/23/23 15:22 Exam Constitutional Vital Signs, click to edit/add: Last Vital Signs Temp 98.3 F 11/27/23 11:00 Pulse 54 L 11/27/23 11:00 Resp 14 11/27/23 11:00 BP 136/82 11/27/23 11:00 Pulse Ox 94 L 11/27/23 11:00 O2 Del Method Room Air 11/27/23 11:00 O2 Flow Rate 2 10/03/24 07:57 Common normals: oriented x3; negative for healthy appearing (ill appearing) Nutritional appearance: obese Orientation/consciousness: Yes awake Respiratory Common normals: no retractions and no use of accessory muscles Auscultation: diminished lung sounds (posterior bases) bilateral Cardio Common normals: no JVD, regular rate, regular rhythm, S1 normal heart sound, S2 normal heart sound, no gallops, no murmurs, no rub and peripheral pulses 2+ throughout (B/L radial, DP and PT pulses palpable) Palpation: normal PMI Rate: regular rate Rhythm: regular rhythm Extremity Common normals: normal to inspection, normal capillary refill and no clubbing, cyanosis or edema Neuro Common normals: oriented x3, CN's II-XII intact bilaterally and moves all extremities Psych Common normals: mental status grossly normal, thought process normal, cooperative, affect normal and speech normal Results Labs Labs: Short CBC 11/26/23 11/27/23 Range/Units 12:03 05:34 WBC 8.8 6.6 (4.0-11.0) 10^3/uL Hgb 11.4 L 9.6 L (12.0-16.0) g/dL Hct 36.3 29.8 L (36.0-48.0) % Plt Count 281 262 (150-450) 10^3/uL BMP 11/26/23 11/27/23 11:06 05:34 Sodium 137 137 Potassium 3.6 3.3 L Chloride 102 102 Carbon Dioxide 25.8 27.5 BUN 14.0 11.0 Creatinine 1.23 H 1.28 H Glucose 110 H 102 Calcium 9.8 9.1 Liver Function 11/26/23 Range/Units 11:06 Total Bilirubin 0.5 (0.2-1.0) mg/dL AST 14 L (15-37) U/L ALT 13 L (14-59) U/L Alkaline Phosphatase 89 (46-116) U/L Albumin 2.7 L (3.4-5.0) g/dL Urine 11/26/23 Range/Units 11:06 Urine Color Lt. yellow (YELLOW) Urine Clarity Clear (CLEAR) Urine pH 7.0 (5.0-9.0) Ur Specific [place] <=1.005 A (1.005-1.025) Urine Protein Negative (NEG/TRACE) mg/dL Urine Glucose (UA) Negative (NEGATIVE) mg/dL HS troponin trending down 11/27/23 05:30 102.3; 11/26/23 20:47 148.9; 11/26/23 17:06- 175.5; 11/26/23 11:00 27 BNP 2368 ECG Attestation: ?I have reviewed the pertinent ECG results. ECG interpretation date: 11/27/23 ECG interpretation time: 06:00 Interpretation: Measurements Intervals [place] Rate: 68 P: 47 FL: 146 QRS: -3 QRSD: 81 T: 32 QT: 427 QTc: 457 Interpretive Statements SINUS RHYTHM - A fib no longer present Imaging echo: Attestation: I have reviewed the pertinent imaging results. Radiologist's impression: 11/26/23 LEFT VENTRICLE: Normal chamber size. Normal left ventricular wall thickness. LV EF: Global left ventricular systolic function is hyperdynamic; visually estimated ejection fraction is 70 to 75%. No significant wall motion abnormalities. DIASTOLIC: Not adequately assessed due to heart rhythm. ATRIAL SEPTUM: Visually appears intact. Lipomatous hypertrophy of the intra-atrial septum. LEFT ATRIUM: Normal chamber size. RIGHT ATRIUM: Normal chamber size. RIGHT VENTRICLE: Normal chamber size. Normal systolic function. TRICUSPID VALVE: Normal mobility and thickness. No stenosis with trivial regurgitation. Unable to assess right-sided pressures due to lack of measurable tricuspid regurgitation. MITRAL VALVE: Normal mobility and thickness. No evidence of mitral valve stenosis. There is no mitral annular calcification. Mild mitral regurgitation. AORTIC VALVE: Normal trileaflet appearance. Mildly calcified aortic valve. Normal leaflet mobility. No evidence of aortic valve stenosis. No aortic regurgitation. AORTIC ROOT: Normal diameter and appearance. PULMONIC VALVE: Normal thickness and mobility. No stenosis. No regurgitation. PERICARDIUM: Anterior free space; trivial effusion versus prominent fat pad. IVC: Collapses with inspirations. IVC is dilated (2.3 cm) CONCLUSION: 1. Global left ventricular systolic function is hyperdynamic; visually estimated ejection fraction is 70 to 75% 2. Normal right ventricular size and systolic function 3. Mild mitral regurgitation 4. Anterior free space; trivial effusion versus fat pad Chest x-ray: Attestation: I have reviewed the pertinent imaging results. Radiologist's impression: FINDINGS: LUNGS: No significant pulmonary parenchymal abnormalities. VASCULATURE: No increased pulmonary vasculature. PLEURA: No pneumothorax, effusion, or pleural thickening. CARDIAC: No cardiomegaly or cardiac silhouette abnormality. MEDIASTINUM: No visible mass or adenopathy. Aortic atherosclerosis BONES: No fracture or visible bone lesion. OTHER: Negative. XR/XR chest 1V IMPRESSION: No acute cardiopulmonary process Assessment and Plan Assessment and Plan (1) Atrial fibrillation: Assessment and Plan: [id number]= at least 3- Age, female Currently she is anticoagulated with eliquis 5 mg po bid. Remains in Sinus rhythm Continue metoprolol 50 mg po bid. Recommend 30 day event monitor and f/U with Dr Weaver in about 6-8 weeks to evaluate and manage Recommend outpt Lexiscan stress test in light of acute illness with URI/Influenza, significant SOB. ECG currently sinus rhythm, no acute ST or T wave changes, Echocardiogram with normal LVSF and no wall motion abnormalities Qualifiers: Atrial fibrillation type: paroxysmal Qualified Code(s): I48.0 - Paroxysmal atrial fibrillation (2) Dehydration: Assessment and Plan: managed by primary service (3) Upper respiratory infection: Assessment and Plan: managed by primary service (4) Elevated troponin level not due myocardial infarction: Assessment and Plan: troponin levels trending down and most likely r/t demand ischemia from acute illness/ URI, shortness of breath, and A fib with RVR No acute ECG changes noted, remains in sinus rhythm Echo reviewed and no wall motion abnormalities noted and normal LVSF. Recommend outpt Lexiscan stress test for ischemic evaluation (5) ZAVALA (dyspnea on exertion): Assessment and Plan: Currently pt appears dehyrated and no volume overload noted. Respiratory status managed by primary service Remains on oxygen (6) Essential (primary) hypertension: Assessment and Plan: Currently well controlled with metoprolol Plan as above 30 day event to monitor for A fib burden Out pt Lexiscan F/U with Dr Weaver in about 6-8 weeks Thank you for the consult, please call for any further concerns Ryan Olmos [facility] Cardiology
[2023-11-27] MEDS: HYOSCYAMINE SULFATE 0.125 MG TAB.SUBL SL (20:17)
[2023-11-28] VITALS (9 sets, daily range): BP systolic 138–143; BP diastolic 72–75; PULSE 61–72; TEMP 36.6–36.7; O2SAT 91–92
[2023-11-28] MEDS: IPRATROPIUM BROMIDE 0.5 MG/2.5 ML VIAL.NEB IH (04:14)
[2023-11-28 05:28] LABS: Basophils Absolute Auto 0.1 10^3/uL (0.0-0.1); Basophils Percent Auto 0.9 % (0.2-2.0); Eosinophils Absolute Auto 0.2 10^3/uL (0.0-0.7); Eosinophils Percent Auto 3.5 % (0.9-7.0); Hematocrit 33.2 % (36.0-48.0); Hemoglobin 10.6 g/dL (12.0-16.0); Immature Granulocytes Abs Auto 0.07 10^3/uL (0.00-0.03); Immature Granulocytes Pct Auto 1.1 % (0.0-0.5); Lymphocytes Absolute Auto 1.5 10^3/uL (1.2-3.8); Lymphocytes Percent Auto 23.3 % (20.5-60.0); Mean Corpuscular HGB Conc 31.9 g/dL (29.9-35.2); Mean Corpuscular Volume 87.8 fL (81.0-99.0); Mean Platelet Volume 9.8 fL (9.5-13.5); Monocytes Absolute Auto 0.5 10^3/uL (0.3-0.8); Monocytes Percent Auto 7.7 % (1.7-12.0); Neutrophils Absolute Auto 4.1 10^3/uL (1.4-6.5); Neutrophils Percent Auto 63.5 % (43.0-75.0); Platelet Count 271 10^3/uL (150-450); Red Blood Count 3.78 10^6/uL (4.20-5.40); Red Cell Distribution Width 15.6 % (11.0-15.0); White Blood Count 6.5 10^3/uL (4.0-11.0)
[2023-11-28 05:38] LABS: Anion Gap 12.4; Calcium 9.2 mg/dL (8.5-10.1); Carbon Dioxide 26.4 mmol/L (21.0-32.0); Chloride 102 mmol/L (98-107); Estimated GFR (African America 48 (>=60 mL/min/1.73m^2); Estimated GFR (Non-African Ame 39 (>=60 mL/min/1.73m^2); Glucose 106 mg/dL (74-106); Potassium 3.8 mmol/L (3.5-5.1); Sodium 137 mmol/L (136-145)
[2023-11-28 05:52] LABS: Troponin I High Sensitivity 29.4 pg/mL (4.0-51.3)
--- NOTE | 2023-11-28 07:50 | P.DS_ITS ---
DS: Providers Provider Date of admission: 11/26/23 14:00 Primary care physician: Velasquez Langley MD Consults: 11/26/23 16:13 Consult to Pharmacy Routine Consulting Provider: Reason for consultation: Please [place] me when Med Rec is Updated Has provider been notified: No Occupational Therapy Eval and Treat Routine Reason for consultation: Only if needed for Rehab Has provider been notified: No Physical Therapy Eval and Treat Routine Reason for consultation: Eval and Treat Has provider been notified: No 11/26/23 16:15 Consult to Cardiology Routine Reason for consultation: afib Has provider been notified: No DS: Diagnosis Discharge Diagnosis (1) Atrial fibrillation: Qualifiers: Atrial fibrillation type: paroxysmal Qualified Code(s): I48.0 - Paroxysmal atrial fibrillation (2) Dehydration: (3) Upper respiratory infection: (4) Elevated troponin level not due myocardial infarction: (5) ZAVALA (dyspnea on exertion): (6) Essential (primary) hypertension: Plan Admission findings: Tachycardia, respiratory distress, uncontrolled hypertension, elevated BNP consistent with atrial fibrillation with rapid ventricular response with acute systolic heart failure Atrial fibrillation with rapid ventricular response-stable at the time of discharge Uncontrolled hypertension-stable at the time of discharge Hypokalemia-stable at the time of discharge Iron deficiency anemia-stable Diabetes mellitus-insulin sliding scale Moderate protein calorie malnutrition-diet management Acute kidney injury-baseline creatinine of 0.98, admission creatinine of 1.23 which is 125% above baseline. Elevated somewhat today. Admission status: Patient will likely require 1 additional hospital stay so continuous inpatient status is medically necessary treatment will span 2 midnights. Possible transfer for cardiac catheterization based on information as outlined above, checking on plan from cardiology ? DS: Summary Hospital Course Hospital Course: Patient was in the hospital to be evaluated by an echocardiogram. Found to be in atrial fibrillation with rapid ventricular spots. This is a new diagnosis for her. She was transferred down to the emergency room. Given 1 dose of IV Cardizem with improved rate control and converted back to normal sinus rhythm. She was placed on oral Cardizem but overnight she had 2 episodes of A-fib with rapid ventricular response. Heart rates in the 140s. Patient was changed to metoprolol 50 mg twice daily and she converted back into the normal sinus rhythm. She was monitored for 24 hours on the metoprolol due to his concern for hypotension. Blood pressure maintained stable, heart rate remained stable, patient also had acute demand ischemia with elevated troponin and elevated BNP. Both of those were improving at the time of discharge. Will maintain Eliquis and metoprolol for rate control and cardiac ischemia. Follow-up with cardiology as an outpatient. See me in the office in 3 days. Medications see list Status at Discharge Overall status at discharge: patient is not back to baseline Time Spent with Patient Time attestation: Total time spent providing and/or coordinating discharge services: Time spent: greater than 30 minutes Exam Constitutional Vital Signs, click to edit/add: Last Vital Signs Temp 98.0 F 11/28/23 07:39 Pulse 65 11/28/23 07:41 Resp 18 11/28/23 07:41 BP 143/75 H 11/28/23 07:39 Pulse Ox 92 L 11/28/23 07:39 O2 Del Method Room Air 11/28/23 07:39 O2 Flow Rate 2 11/27/23 07:57 Documenting provider has reviewed patient's vital signs: yes Common normals: no apparent distress Chest Common normals: inspection of chest normal Respiratory Common normals: normal respiratory effort and no retractions Auscultation: rhonchi (Minimal) Cardio Common normals: regular rate, regular rhythm and no murmurs Extremity Common normals: no clubbing, cyanosis or edema DS: Data Data Completed and Pending Labs on day of discharge: Labs from last 24 hours 11/28/23 11/27/23 05:18 06:34 WBC 6.5 RBC 3.78 L Hgb 10.6 L Hct 33.2 L MCV 87.8 MCH 28.0 MCHC 31.9 RDW 15.6 H Plt Count 271 MPV 9.8 Neut % (Auto) 63.5 Lymph % (Auto) 23.3 Will % (Auto) 7.7 Eos % (Auto) 3.5 Baso % (Auto) 0.9 Neut # (Auto) 4.1 Lymph # (Auto) 1.5 Will # (Auto) 0.5 Eos # (Auto) 0.2 Baso # (Auto) 0.1 Abs Immat Gran (auto) 0.07 H Imm/Tot Granulo (auto) 1.1 H Sodium 137 Potassium 3.8 Chloride 102 Carbon Dioxide 26.4 Anion Gap 12.4 BUN 13.0 Creatinine 1.30 H Est GFR ( Amer) 48 L Est GFR (Non-Af Amer) 39 L BUN/Creatinine Ratio 10.0 Glucose 106 Calcium 9.2 Troponin I High Sens 29.4 NT-Pro-B Natriuret Pep 1418.0 TSH & Free T4 Interp 1.654 Discharge Plan Discharge Disposition: Home, Self-Care Condition: Fair Discharge Medications: New metoprolol tartrate 25 mg Tablet 50 mg PO BID Qty: 60 11RF Eliquis 5 mg Tablet 5 mg PO BID Qty: 60 11RF Continued memantine 28 mg capsule,sprinkle,ER 24hr 28 mg PO Q24H metformin 500 mg tablet extended release 24 hr 500 mg PO BID Jardiance 10 mg tablet 10 mg PO DAILY PRN (Reason: High blood sugar) furosemide 20 mg tablet 20 mg PO DAILY PRN (Reason: edema) ropinirole 0.5 mg tablet 0.5 mg PO .QHS hydrochlorothiazide 25 mg tablet 50 mg PO DAILY albuterol sulfate 90 mcg/actuation HFA aerosol inhaler 2 puff INHALATION Q4H PRN (Reason: shortness of breath or wheezing) ezetimibe 10 mg tablet 10 mg PO DAILY tiotropium bromide 18 mcg capsule, w/inhalation device 1 cap INHALATION DAILY Print Language: Vietnamese Forms: Portal Instructions
[2023-11-28] MEDS: EZETIMIBE 10 MG TABLET PO (08:43)
[2023-11-28] MEDS: POTASSIUM CHLORIDE 10 MEQ ER TABLET 20 MEQ PO (08:43)
[2023-11-28] MEDS: APIXABAN 5 MG TABLET PO (08:43)
[2023-11-28] MEDS: TRIAMCINOLONE ACETONIDE 0.1% CREAM 15 GM TUBE 1 APPLIC TOPICAL (08:44)
[2023-11-28] MEDS: METOPROLOL TARTRATE 25 MG TABLET 50 MG PO (08:44)
[2023-11-28] MEDS: MEMANTINE HCL 28 MG CAP XR PO (08:45)
--- NOTE | 2023-11-28 09:48 | CM.NOTE ---
Discharge planning discussed with pt and PT recommendations, patient refuses and HH services or outpatient PT. Pt lives at home with and has no concerns returning back to home.
--- NOTE | 2023-12-01 14:36 | CM.DCFOLLOWU ---
Person spoke with:patient How are you feeling?alright, had some fluttering today How is your pain?no pain Did you understand your discharge instructions? yes Do you have any questions about your discharge instructions?no Were you given any prescriptions at discharge? yes Were you able to get your prescriptions filled?yes Do you understand how to take your medications as ordered?yes Do you have any questions about your follow up appointment and do you plan to keep your follow up appointment? no questions,had follow up today with Dr. Langley and he is ordering stress test Is there anything else that you would like to discuss?no Questions/Comments/Concerns/Other: had nadja schwartz
== END 2023-11-28 11:15 | disposition home or self-care (01) | DRG 308 ==
LOC: ER 10:49 → MS 14:03
PROVIDERS: Admitting Provider Family Medicine; Emergency Provider Emergency Medicine; PCP Family Medicine; Visit Provider Family Medicine
DX: I48.0 Paroxysmal atrial fibrillation (principal); I50.21 Acute systolic (congestive) heart failure; E44.0 Moderate protein-calorie malnutrition; N17.9 Acute kidney failure, unspecified; I24.89 Other forms of acute ischemic heart disease; I11.0 Hypertensive heart disease with heart failure; D50.9 Iron deficiency anemia, unspecified; E11.9 Type 2 diabetes mellitus without complications; E87.6 Hypokalemia; E86.0 Dehydration; J06.9 Acute upper respiratory infection, unspecified; J44.9 Chronic obstructive pulmonary disease, unspecified; R06.03 Acute respiratory distress; Z87.891 Personal history of nicotine dependence; Z79.84 Long term (current) use of oral hypoglycemic drugs; Z79.899 Other long term (current) drug therapy; Z68.27 Body mass index [BMI] 27.0-27.9, adult
CPT/HCPCS: 36415; 71045; 71046; 80048; 80053; 81001; 81003; 82948; 83605; 83735; 83880; 84443; 84484; 85025; 85610; 87070; 93005; 93270; 93306; 94640; 94667; 94668; 94761; 96361; 96374; 96375; 97110; 97161; 97165; 97530; 99285; G0328; J1885; J2405

== ENCOUNTER 2023-12-02 17:10 | Observation (INO) | payer MEDICARE, SELFPAY ==
[2023-12-02] VITALS (9 sets, daily range): BP systolic 159–194; BP diastolic 75–83; PULSE 57–88; TEMP 36.4–37.3; O2SAT 90–97; BMI 28.2; BMI 28.0
--- OUTSIDE RECORDS SUMMARY | 2023-12-02 17:19 | XMS_ITS | CCD ---
Author Organization [facility] Care Team Providers Care [employer] Planner Name Role Phone ADINA BUNCH Unavailable Unavailable [...] Care Provider MD Anju Lees Attending Provider [phone] CURRY LOVING Attending Unavailable CURRY LOVING Attending [...] reactions to drug 4 Unknown Reaction, Rash [place], [place] (4 sources) Ciprofloxacin Drug Allergy 8 [place]om[place] (1 source) Hmg-Coa Reductase Inhibitors (Statins) Propensity to adverse reactions to drug 8 [place] (4 sources) Meperidine Drug Allergy 8 [place]aphylaxis [place] (4 sources) moxifloxacin Drug Allergy 8 [place] (4 sources) Nalbuphine Drug Allergy 8 Unknown Reaction, Itching [place] (4 sources) Promethazine Drug Allergy 8 Unknown Reaction [place] (1 source) Sulfonamides (Antibiotic) Propensity to adverse reactions to drug 8 [place] (2 sources) black walnut pollen extract Drug Allergy [address] [facility] (2 sources) Ciprofloxacin Drug Allergy 4 [facility] (2 sources) Levamisole Drug Allergy [address] [facility] (2 sources) Meperidine Drug Allergy [address] [facility] (2 sources) moxifloxacin Drug Allergy [address] [facility] (2 sources) Nalbuphine Drug Allergy [address] [facility] (1 source) Sulfonamides (Antibiotic) Drug allergy (disorder) [address] [facility] (4 sources) Sulfacetamide; 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: [sulfacetamide] Drug Allergy 4 Unknown Reaction, Itching [facility] (4 sources) Sulfur; 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: [sulfur] Drug Allergy [address] [facility] (4 sources) Idldvqn-ARD-WcI Reductase Inhibitor; 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: [Gnlreev-MEK-ZyQ Reductase Inhibitor] Allergy to substance [address] [facility] (1 source) Ciprofloxacin Drug Allergy 4 [facility] (1 source) Meperidine Drug Allergy [address] [facility] (1 source) moxifloxacin Drug Allergy 4 [facility] (1 source) Nalbuphine Drug Allergy [address] [facility] (1 source) Promethazine Drug Allergy [address] [facility] Medications Current Medications Medication Drug [...] Central Nervous System Stimulant, Methylxanthine Start: 10-10-2019 mxmwpcavfe-atwbxstlnugzo-zfa feine (FIORICET, ESGIC) per tablet 1 tablet [id number] 200 actuat albuterol 0.09 mg/actuat metered dose [...] tablet 3 10/16/2019 Active Start: 10-11-2019 lisinopril (NC INIVIL;ZESTRIL) tablet 40 mg Start: 10-10-2019 End: [...] mg extended release oral capsule (3 sources) U-lgjown-J-aspartate Receptor Antagonist Start: 04-08-2023 take 28 mg [...] disintegrating tablet 4 mg polyethylene glycol 3350 81535 mg powder for oral solution (3 sources) [...] spironolactone (ALDACTONE) t ablet 50 mg Vit C,X-Ed-Trhik-Lutein-Zeax an (Preservision Areds-2) 250-90-40-1 mg capsule (1 source) Start: 04-17-2023 Vit C,F-Ck-Vftqu-Lutein-Zeax an (Preservision Areds-2) 250-90-40-1 mg capsule Active [...] 0 04-24-2023 Commemt1 Glu2: Cleaned Meter Normal [facility] Comment on above: Result Comment: PERF ORMED BY: [facility] [address] [place] [address] PATHOLOGIST HARDWARE ENGINEERING MANAGER MARKELL WILDE M.D. Performed By: #### G LULS #### Point of Care testing , Glucose [Mass/Vol] 95 mg/dL Normal [facility] Comment on above: Result Comment: [place] Glucose Reference Range is dependent on time and content of last meal. Glucose of more than 200 mg/dL in a nonstressed, ambulatory subject supports the diagnosis of Diabetes Mellitus. Performed By: #### G LULS #### Point of Care testing , Alanine aminotransferase [En zymatic activity/volume] in Serum or PlasmaOrdered By: Anju eLes on 04-17-2023 ALT [Catalytic activity/Vol] 11 U/L 7-52 [facility] Albumin [Mass/volume] in Ser um or Plasma by Bromocresol green (BCG) dye binding methoOrdered By: Anju Lees on 04-17-2023 Albumin BCG dye [Mass/Vol] 3.7 g/dL 3.5-5.7 [facility] Alkaline phosphatase [Enzyma tic activity/volume] in Serum or PlasmaOrdered By: Anju Lees on 04-17-2023 ALP [Catalytic activity/Vol] 110 U/L 34-104 [facility] Aspartate aminotransferase [ Enzymatic activity/volume] in Serum or PlasmaOrdered By: Anju Lees on 04-17-2023 AST [Catalytic activity/Vol] 16 U/L 13-39 [facility] Basophils Auto (Bld) [#/Vol] Ordered By: Anju Lees on 04-17-2023 Basophils (Bld) [#/Vol] 0.1 10*3/uL 0.0-0.2 [facility] Basophils/100 WBC Auto (Bld) Ordered By: Anju Lees on 04-17-2023 Basophils/100 WBC (Bld) 0.6 % . [facility] Bilirubin.total [Mass/volume ] in Serum or PlasmaOrdered By: Anju Lees on 04-17-2023 Bilirubin [Mass/Vol] 0.5 mg/dL 0.3-1.0 [facility] CMP with reflex to A1Con Albumin [Mass/Vol] 3.7 g/dL Normal 3.5-5.7 [facility] Comment on above: Performed By: #### C MP wRFX A1C, CBC #### [facility] [address] Albumin/Globulin [Mass ratio] 1.9 {ratio} Normal [facility] Comment on above: Performed By: #### C MP wRFX A1C, CBC #### [facility] [address] ALP [Catalytic activity/Vol] 110 U/L High 34-104 [facility] Comment on above: Result Comment: PERF ORMED BY: [place] [address] PATHOLOGIST HARDWARE ENGINEERING MANAGER MARKELL WILDE M.D. Performed By: #### C MP wRFX A1C, CBC #### [facility] [address] [place] [address] [place] ALT [Catalytic activity/Vol] 11 U/L Normal 7-52 [facility] Comment on above: Performed By: #### C MP wRFX A1C, CBC #### [facility] [address] [place] [address] [place] Anion gap [Moles/Vol] 10.3 mmol/L Normal 6.0-15.0 [facility] Comment on above: Performed By: #### C MP wRFX A1C, CBC #### [facility] [address] [place] [address] [place] AST [Catalytic activity/Vol] 16 U/L Normal 13-39 [facility] Comment on above: Performed By: #### C MP wRFX A1C, CBC #### [facility] [address] Bilirubin [Mass/Vol] 0.5 mg/dL Normal 0.3-1.0 [facility] Comment on above: Performed By: #### C MP wRFX A1C, CBC #### [facility] [address] Calcium [Mass/Vol] 9.5 mg/dL Normal 8.6-10.3 [facility] Comment on above: Performed By: #### C MP wRFX A1C, CBC #### [address] Chloride [Moles/Vol] 102 mmol/L Normal 98-107 [facility] Comment on above: Performed By: #### C MP wRFX A1C, CBC #### [facility] [address] [place] [address] CO2 [Moles/Vol] 31.9 mmol/L High 21.0-31.0 [facility] Comment on above: Performed By: #### C MP wRFX A1C, CBC #### [address] Creatinine [Mass/Vol] 1.01 mg/dL Normal 0.60-1.20 [facility] Comment on above: Performed By: #### C MP wRFX A1C, CBC #### [facility] [address] [place] [address] [place] GFR/1.73 sq M.predicted MDRD (S/P/Bld) [Vol rate/Area] 56.627 mL/min/{1.73_m2} [facility] Comment on above: Performed By: #### C MP wRFX A1C, CBC #### [facility] [address] [place] [address] Globulin (S) [Mass/Vol] 2.0 g/dL [facility] Comment on above: Performed By: #### C MP wRFX A1C, CBC #### [facility] [address] [place] [address] [place] Glucose [Mass/Vol] 89 mg/dL Normal 70-100 [facility] Comment on above: Performed By: #### C MP wRFX A1C, CBC #### [facility] [address] [place] [id number] [place] Potassium [Moles/Vol] 4.2 mmol/L Normal 3.5-5.1 [facility] Comment on above: Performed By: #### C MP wRFX A1C, CBC #### [facility] [address] Protein [Mass/Vol] 5.7 g/dL Low 6.4-8.9 [facility] Comment on above: Performed By: #### C MP wRFX A1C, CBC #### [facility] [address] [place] [address] [place] Sodium [Moles/Vol] 140 mmol/L Normal 136-145 [facility] Comment on above: Performed By: #### C MP wRFX A1C, CBC #### [facility] [address] [place] [id number] [place] Urea nitrogen [Mass/Vol] 23 mg/dL Normal 7-25 [facility] Comment on above: Performed By: #### C MP wRFX A1C, CBC #### [facility] [address] [place] [id number] [place] Calcium [Mass/volume] in Ser um or PlasmaOrdered By: Anju Lees on 04-17-2023 Calcium [Mass/Vol] 9.5 mg/dL 8.6-10.3 [facility] Carbon dioxide, total [Moles /volume] in Serum or PlasmaOrdered By: Anju Lees on 04-17-2023 CO2 [Moles/Vol] 31.9 mmol/L 21.0-31.0 [facility] Chloride [Moles/volume] in S martita or PlasmaOrdered By: Anju Lees on 04-17-2023 Chloride [Moles/Vol] 102 mmol/L 98-107 [facility] Complete Blood Count Auto Di ffon 04-17-2023 Basophils (Bld) [#/Vol] 0.1 10*3/uL Normal 0.0-0.2 [facility] Comment on above: Result Comment: PERF ORMED BY: [place] [address] PATHOLOGIST HARDWARE ENGINEERING MANAGER MARKELL WILDE M.D. Performed By: #### C MP wRFX A1C, CBC #### [facility] [address] [place] [address] Basophils/100 WBC (Bld) 0.6 % Normal . [facility] Comment on above: Performed By: #### C MP wRFX A1C, CBC #### [address] Eosinophils (Bld) [#/Vol] 0.3 10*3/uL Normal 0.0-0.45 [facility] Comment on above: Performed By: #### C MP wRFX A1C, CBC #### [address] Eosinophils/100 WBC (Bld) 3.1 % Normal . [facility] Comment on above: Performed By: #### C MP wRFX A1C, CBC #### [address] Erythrocyte distribution width (RBC) [Ratio] 16.3 % High 11.9-15.3 [facility] Comment on above: Performed By: #### C MP wRFX A1C, CBC #### [facility] [address] [place] [address] Hematocrit (Bld) [Volume fraction] 33.3 % Low 34.0-46.4 [facility] Comment on above: Performed By: #### C MP wRFX A1C, CBC #### [address] Hemoglobin (Bld) [Mass/Vol] 11.1 g/dL Low 11.8-15.4 [facility] Comment on above: Performed By: #### C MP wRFX A1C, CBC #### [address] [place] [address] [place] Lymphocytes (Bld) [#/Vol] 2.1 10*3/uL Normal 1.00-4.8 [facility] Comment on above: Performed By: #### C MP wRFX A1C, CBC #### [facility] [address] Lymphocytes/100 WBC (Bld) 22.7 % Normal . [facility] Comment on above: Performed By: #### C MP wRFX A1C, CBC #### [address] MCH (RBC) [Entitic mass] 27.9 pg Normal 24.7-34.3 [facility] Comment on above: Performed By: #### C MP wRFX A1C, CBC #### [address] MCV (RBC) [Entitic vol] 83.3 fL Normal 80-100 [facility] Comment on above: Performed By: #### C MP wRFX A1C, CBC #### [address] Mean Corpuscular HGB Conc 33.4 g/dL Normal 32.0-35.0 [facility] Comment on above: Performed By: #### C MP wRFX A1C, CBC #### [address] Monocytes (Bld) [#/Vol] 0.6 10*3/uL Normal 0.0-0.8 [facility] Comment on above: Performed By: #### C MP wRFX A1C, CBC #### [place] [address] [place] Monocytes/100 WBC (Bld) 6.5 % Normal . [facility] Comment on above: Performed By: #### C MP wRFX A1C, CBC #### [address] Neutrophils (Bld) [#/Vol] 6.1 10*3/uL Normal 1.8-7.7 [facility] Comment on above: Performed By: #### C MP wRFX A1C, CBC #### [facility] [address] Neutrophils/100 WBC (Bld) 67.1 % Normal . [facility] Comment on above: Performed By: #### C MP wRFX A1C, CBC #### [facility] [address] NRBC% 0.1 /100{WBC} Normal 0-0.5 [facility] Comment on above: Performed By: #### C MP wRFX A1C, CBC #### [facility] [address] Platelet mean volume (Bld) [Entitic vol] 8.7 fL Normal 6.3-10.7 [facility] Comment on above: Performed By: #### C MP wRFX A1C, CBC #### [facility] [address] Platelets (Bld) [#/Vol] 249 10*3/uL Normal 150-450 [facility] Comment on above: Performed By: #### C MP wRFX A1C, CBC #### [facility] [address] RBC (Bld) [#/Vol] 4.00 10*6/uL Normal 3.60-5.00 [facility] Comment on above: Performed By: #### C MP wRFX A1C, CBC #### [facility] [address] [place] [address] [place] WBC (Bld) [#/Vol] 9.1 10*3/uL Normal 3.8-11.6 [facility] Comment on above: Performed By: #### C MP wRFX A1C, CBC #### [facility] [address] [place] [address] [place] Creatinine [Mass/volume] in Serum or PlasmaOrdered By: Anju Lees on 04-17-2023 Creatinine [Mass/Vol] 1.01 mg/dL 0.60-1.20 [facility] ECG 12 lead ECGon 04-17-2023 ECG 12 lead ECG [facility] [place] [address] [place] [address] Electrocardiograph Report Signed Patient: Zachary Maynard MR#: [id number] : 1945 Acct:[id number] Age/Sex: 77 / F ADM Date: 04/17/23 Loc: Room: Type: [facility] Attending Dr: Anju Lees MD Ordering Provider: [...] previous ECGs available Confirmed by BAILEE MACIAS [facility] ([id number] on 04/17/2023 3:12:20 PM Referred By: FREDDY Electronically Signed By:JASON MARIE MD [facility] Transcribed By: MUS Signed By Bonifacio Marie MD 04/17/[address] [facility] Eosinophils Auto (Bld) [#/Vo l]Ordered By: Anju Lees on 04-17-2023 Eosinophils (Bld) [#/Vol] 0.3 10*3/uL 0.0-0.45 [facility] Eosinophils/100 WBC Auto (Bl d)Ordered By: Anju Lees on 04-17-2023 Eosinophils/100 WBC (Bld) 3.1 % . [facility] Erythrocyte distribution wid th Auto (RBC) [Ratio]Ordered By: Anju Lees on 04-17-2023 Erythrocyte distribution width (RBC) [Ratio] 16.3 % 11.9-15.3 [facility] Globulin Calc (S) [Mass/Vol] Ordered By: Anju Lees on 04-17-2023 Globulin (S) [Mass/Vol] 2.0 g/dL [facility] Glucose [Mass/volume] in Ser um or PlasmaOrdered By: Anju Lees on 04-17-2023 Glucose [Mass/Vol] 89 mg/dL 70-100 [facility] Hematocrit Auto (Bld) [Volum e fraction]Ordered By: Anju Lees on 04-17-2023 Hematocrit (Bld) [Volume fraction] 33.3 % 34.0-46.4 [facility] Hemoglobin [Mass/volume] in BloodOrdered By: Anju Lese on 04-17-2023 Hemoglobin (Bld) [Mass/Vol] 11.1 g/dL 11.8-15.4 [facility] Leukocytes [#/volume] correc lovely for nucleated erythrocytes in Blood by Automated counOrdered By: nAju Lees on 04-17-2023 WBC corrected for nucl RBC Auto (Bld) [#/Vol] 9.1 10*3/uL 3.8-11.6 [facility] Lymphocytes Auto (Bld) [#/Vo l]Ordered By: Anju Lees on 04-17-2023 Lymphocytes (Bld) [#/Vol] 2.1 10*3/uL 1.00-4.8 [facility] Lymphocytes/100 WBC Auto (Bl d)Ordered By: Anju Lees on 04-17-2023 Lymphocytes/100 WBC (Bld) 22.7 % . [facility] MCH Auto (RBC) [Entitic mass ]Ordered By: Anju Lees on 04-17-2023 MCH (RBC) [Entitic mass] 27.9 pg 24.7-34.3 [facility] MCHC Auto (RBC) [Mass/Vol]Or dered By: Anju Lees on 04-17-2023 MCHC (RBC) [Mass/Vol] 33.4 g/dL 32.0-35.0 [facility] MCV Auto (RBC) [Entitic vol] Ordered By: Anju Lees on 04-17-2023 MCV (RBC) [Entitic vol] 83.3 fL 80-100 [facility] Monocytes Auto (Bld) [#/Vol] Ordered By: Anju Lees on 04-17-2023 Monocytes (Bld) [#/Vol] 0.6 10*3/uL 0.0-0.8 [facility] Monocytes/100 WBC Auto (Bld) Ordered By: Anju Lees on 04-17-2023 Monocytes/100 WBC (Bld) 6.5 % . [facility] Neutrophils Auto (Bld) [#/Vo l]Ordered By: Anju Lees on 04-17-2023 Neutrophils (Bld) [#/Vol] 6.1 10*3/uL 1.8-7.7 [facility] Neutrophils/100 WBC Auto (Bl d)Ordered By: Anju Lees on 04-17-2023 Neutrophils/100 WBC (Bld) 67.1 % . [facility] No Panel InformationOrdered By: Anju Lees on 04-17-2023 Estimated GFR (CKD-EPI) 56.627 mL/Min [facility] Creatinine Clearance (Chem N/A [facility] Nucleated erythrocytes [Pres ence] in Blood by Automated countOrdered By: Anju Lees on 04-17-2023 Nucleated RBC Auto Ql (Bld) 0.1 /100{WBC} 0-0.5 [facility] Platelet mean volume Auto (B ld) [Entitic vol]Ordered By: Anju Lees on 04-17-2023 Platelet mean volume (Bld) [Entitic vol] 8.7 fL 6.3-10.7 [facility] Platelets Auto (Bld) [#/Vol] Ordered By: Anju Lees on 04-17-2023 Platelets (Bld) [#/Vol] 249 10*3/uL 150-450 [facility] Potassium [Moles/volume] in Serum or PlasmaOrdered By: Anju Lees on 04-17-2023 Potassium [Moles/Vol] 4.2 mmol/L 3.5-5.1 [facility] Protein [Mass/volume] in Ser um or PlasmaOrdered By: Anju Lees on 04-17-2023 Protein [Mass/Vol] 5.7 g/dL 6.4-8.9 [facility] RBC Auto (Bld) [#/Vol]Ordere d By: Anju Lees on 04-17-2023 RBC (Bld) [#/Vol] 4.00 10*6/uL 3.60-5.00 [facility] Serum or plasma albumin/glob ulin mass ratioOrdered By: Anju Lees on 04-17-2023 Albumin/Globulin [Mass ratio] 1.9 {ratio} [facility] Serum or plasma anion gap de terminationOrdered By: Anju Lees on 04-17-2023 Anion gap [Moles/Vol] 10.3 mmol/L 6.0-15.0 [facility] Sodium [Moles/volume] in Ser um or PlasmaOrdered By: Anju Lees on 04-17-2023 Sodium [Moles/Vol] 140 mmol/L 136-145 [facility] Urea nitrogen [Mass/volume] in Serum or PlasmaOrdered By: Anju Lees on 04-17-2023 Urea nitrogen [Mass/Vol] 23 mg/dL 7-25 [facility] WBC Auto (Bld) [#/Vol]Ordere d By: Anju Lees on 04-17-2023 WBC (Bld) [#/Vol] 9.1 10*3/uL 3.8-11.6 [facility] XR hand RT min 3V*on 024 XR hand RT min 3V* [facility] [place] [address] XRay Report Signed Patient: Zachary Maynard MR#: [id number] : 1945 Acct:[id number] Age/Sex: 77 / F ADM Date: 04/08/23 Loc: [facility] Room: Type: [facility] Attending Dr: Anju Lees MD Copies to: [...] Sammie Arizmendi M.D.04/08/2023 1:57 PM Dictation Location: [employer] Transcribed By: AUSTIN 04/08/23 135 Dictated By: Sammie Arizmendi MD 04/08/231352 Signed By: 04/08/231356 [facility] ECHOCARDIO M/2D COMPLETEon 0 05-29-2022 ECHOCARDIO M/2D COMPLETE Patient: ZACHARY MAYNARD Exam Date: 05/29/2022 : 1945 Gender:F Ordering : DR ADINA BUNCH . Admission #: [id number] Family : Order #: [id number] CLICK HERE TO VIEW EXAM ECHOCARDIOGRAM REPORT [...] Shore M.D. on 05/30/2022 at 18:32 Normal [facility] MRI BRAIN WO CONon MRI BRAIN WO [...] RENATA GAYTAN Date: 2022-05-29 13:51 Normal [facility] US CAROTID ART BILon 023 US [...] RENATA GAYTAN Date: 2022-05-29 12:55 [address] [facility]24 SARS-CoV-2 (COVID-19) RNA ARMIN+probe Ql (Unsp spec) Not detected Normal NOT DETECTED [facility] Comment on above: Result Comment: This test is not yet approved or cleared by the [place] FDA. When there are no FDA-approved or cleared tests available, and other criteria are met, FDA can make tests available under an emergency access mechanism called an Emergency Use Authorization (EUA). The EUA for this test is supported by the Sanitarian Inspector of Health and Human Service's (HHS's) declaration [...] consistent with SARS-CoV-2. Performed By: #### [facility] #### [facility] [address] [place] [address] Dr. Samuel Kang Ambulatory Clinical Summaryo n 09-11-2020 Ambulatory Clinical Summary {[id number] }[id number] Normal [facility] Patient Educationon 09-12-19 21 Patient Education [...] could (more content not included)... Normal [facility] Urology Office/Clinic Noteon 09-11-2020 Urology Office/Clinic [...] MD, Jude Farias URO In 6 months [id number] Additional Instructions: Patient Education Calorie Counting for [...] (COVID-19) mR (more content not included)... Normal [facility] Comment on above: Result Comment: Elec tronically Signed By: Thuan ARMANDO MD\.br\Date and Time Signed: 09/11/20 16:11 EDT\.br\Electronically Co-Signed By: Anastasia Cabral\.br\Date and Time Co-Signed: 09/11/20 16:08 EDT Ambulatory Clinical Summaryo n 08-08-2020 Ambulatory Clinical Summary {[id number] }[id number] [facility] Patient Educationon 08-09-19 21 Patient Education [...] stimulation). ? For women, using a medical auditor to prevent urine leaks. This is a [...] after experiencing incontinence. General instructions ? Take pknq-pmd-dwscwdq and prescription medicines only as (more content not included)... Normal [facility] Urology Office/Clinic Noteon 08-08-2020 Urology Office/Clinic [...] MD, Jude Farias, URO [address] [place] [address]- Additional Instructions: 1mos. f/u Patient Education Urinary [...] of urethral (more content not included)... Normal [facility] Comment on above: Result Comment: Elec tronically Signed By: Tushar Nunez MD, Jude Farias\.br\Date and Time Signed: 08/08/20 11:28 EDT\.br\Electronically Co-Signed By: Kisha Stevens MA\.br\Date and Time Co-Signed: 08/08/20 11:15 EDT Operative Reporton Operative Report [id number]#1.00CD: 127 [facility] Pathology Noteon 07-27-2020 Pathology Note [id number]#1.00CD :127 [facility] Comment on above: Result Comment: Elec tronically Signed By: Tushar Nunez MD, Jude Farias\.br\Date and Time Signed: 08/07/20 11:22 EDT ECG 12-Leadon 07-24-2020 ECG 12-Lead [id number]#1.00CD: 127 [facility] ED Note-Physicianon 07-25-19 ED Note-Physician [id number]#1.00CD:1 27 [facility] Lab Reportson 07-24-2020 Lab Reports [id number]#1.00CD: 127 [facility] Lab Reports [id number]#1.00CD: 127 [facility] RAD - MISCon 07-24-2020 RAD - MISC [id number]#1.00CD: 127 [facility] Insurance Correspondence Off iceon 07-20-2020 Insurance Correspondence Office [id number]#1.00CD: 127 [facility] Operative Reporton Operative Report [id number]#1.00CD: 127 [facility] Physician Orderon 07-12-2020 Physician Order [id number]#1.00CD: 127 [facility] Pre-Authorization for Medica l Treatmenton 07-12-2020 Pre-Authorization for Medical Treatment [id number]#1.00CD :127 [facility] Ambulatory Clinical Summaryo 07-11-2020 Ambulatory Clinical Summary {[id number] }[id number] [facility] Patient Educationon 07-12-19 Patient Education Obstetrics [...] including vitamins, herbs, eye drops, creams, and evll-dca-qnpgfjm medicines. ? Any problems you or family [...] diabetes medicines or blood thinners. ? Taking mmbv-gtn-bmtjtnu medicines, vitamins, herbs, and supplements. ? Taking [...] to r (more content not included)... Normal [facility] Urology Office/Clinic Noteon 07-11-2020 Urology Office/Clinic Note Chief Complaint 3 week follow up This patient is a 75-year-old female with a history of a grade 2 midline cystocele. She is here today to discuss treatment options. She does have some symptoms of stress incontinence. She underwent cystoscopic examination with dilation of her urethra on May 08 2020. [facility] Staff Zachary is a 75 y.o. female [...] urine and/or bladder capacity by US- non-imaging 91055 Urnls Dip Stick Auto w/o Microscopy POC 75217 Urology Procedure Order 2. Cystocele with prolapse [...] [facility] [address], [place] [address]- Additional Instructions: Patient Education Urethral Vaginal Sling [...] UTI Hypertensio (more content not included)... [facility] Comment on above: Result Comment: Elec tronically Signed By: Jude Finley Jr., MD\.br\Date and Time Signed: 07/11/20 14:49 EDT\.br\Electronically Co-Signed By: Libby Chambers MA\.br\Date and Time Co-Signed: 07/11/20 14:30 EDT Ambulatory Clinical Summaryo n 06-20-2020 Ambulatory Clinical Summary {[id number] }CD:[id number] Virgil Core[facility] Patient Educationon 06-21-19 Patient Education Urology [...] including vitamins, herbs, eye drops, creams, and lutk-hrk-sgadrch medicines. ? Any problems you or family [...] tells you to take them. ? Taking ppfw-gpe-atqkesx medicines, vitamins, herbs, and supplements. General instructions [...] these instructions at home: Medicines ? Take quzc-cqy-geonpua and prescription medicines only as told by [...] to prevent or treat constipation: ? Take ffhz-obk-bfoivxv or prescription medicines. ? Eat foods that [...] pa (more content not included)... [facility] Urology Office/Clinic Noteon 06-20-2020 Urology Office/Clinic [...] Urnls Dip Stick Auto w/o Microscopy POC 53741 I have reviewed the previous health record information and history for this patient from Dr. Finley Follow-up With When Contact Information Tushar Nunez MD, Jude Farias, [facility] [address] [place] [address]- Additional Instructions: 2 weeks Patient Education Urethral [...] mixed type (more content not included)... [facility] Comment on above: Result Comment: Elec tronically Signed By: Tushar Nunez MD, Jude Farias\.br\Date and Time Signed: 06/20/20 14:36 EDT\.br\Electronically Co-Signed By: Maria Del Carmen Hernandez MA\.br\Date and Time Co-Signed: 06/20/20 14:24 EDT Coding Summary.on 06-16-2020 Coding Summary. CD:[id number] Gh0b Ww+PGhlYWQ+NL1OCGXtJ45bz RSdbI7SX7fNPW6MQRJXPVKLX R2PHC6zlBX4WUgvE3HuwdJp AzpbnWJlZN36DCg9CBY0xSjr TFrqkQ4xhNKyN3y6AcRkXV85 wH16HWesRYZsKhD3NiDssfsd bWFy C0lzKeHftWCwKbf+PHRhYmxl IHdpZHRoPScxMDAlJyBzdHls BT1wMg6lITIsGLSfzWyphEWi OiBj k5okYNAoOYqpJP8ooGyrE1Gr pNM0ZWQlx0n5Hq00sRR+PHRk GGY7yNicXDxbf817GrIhw5oe IDM3 kRWkPWdvVOB3I91oh9M3VSPy FPTdTGS1gBF6yR2gdXwwipjt E6CfnMRaOrL8HRZ9xBVqoX7k bGln kybdeI0wTkk+I98CUO3BYZDI QG3UHjl5H7PbBlibnVF+PC90 LUFnPF26xQNdgELqk0itwCa9 JzEw QYQrMYU3kKbmMVbdj0FaRCQq M77amAMkg5Y8DQQpnLtxbJVw ToCwsYY0sJ7xSIqfrwytl1ok dzsn Figzs6kdvi36iP74F55rBRrw QDHgNBX9FLTcIYRxbBuilb1m sZ3lGx0+WSpqn8cwg3kprHd0 IjIw KRKrkpEqdElmXMY2i6QpVw55 N6JbpRvzw8FuSdf0lm51gBMi l4Y3mKW0CRikNXLasG2hCMkb ZnQ6 WGWmDxPebH33vULlHTwlQs8q gYtdtSnfYG9rBIGmnzdcVPSo zB4oFWJgkAGjnUtsUC3fFZZn bjtm b716FsItYAU5SWFaiBXnO9Ws zD3jFkZuJDEaYFReE3AvaTSj TCtrH508TVhjUuT7BBTwsqLu Y2Fs XKUmmKjdLsB3w8X1Tf3Qd7Nk sgifTVP1WAgnPUF6ImDwWjUz XhH6W1HrZlg9MRGvcYwgPK1y J3Bh LNJzyohobgdemWY3YNNoFLHk iY84uTOzXTrtXi0kn6O2k663 EPKaSMZgvN05Vp7gsDbtJFJa dCBU lV2vbuhrk7txfrpnZwMhPZQp CXd0WGn5LGXxtUbzGlLiWBH2 GmU4OYG3iOBgpU2ezTmtlxev dG9w Oyc+T60zmH7sNNU9PPS9dsyr RAWbtkMzWO80SQ31I6IzBboc dGFibGU+PVXlewKceWgbYS1p YmFj f9zzk9LoRRpcQ4VnCXFtBYql Qtc5IIHyZWH2lLA1fJ9tSUNi NQyys0U7fZJ3C8KcjbLhju1t b2xs MMHjWHzhG18rcXLlv4F8JLSk iJC3IJGhuAgfSgLrgY33Veo+ MZIftFitj4VpHbzsk5qxi5fj dGg9 OvQaVYAemvOfqEdbZLC6p7Tk Mw03Z42cEPbuRJXhPZAgPOAf AODolGryma9ixR5lKk1+PGNv bCB3 xXM4bR5gOGJxOgA4MCnlB229 DaUvpRHiNhulu7uqb1fwvJt1 PkLeVXSfdtOfeUsxVOV9p7Vz Lz48 G25fXHejCXDhMIQvNENoXMTp dHzosy9ckK5nZe8+OD4hi4zx df86tI57aXT+YOIeCLV3jKap PSdw QSQluT7aFAuuGjB7JGEiJsAn eQ68rKQcJOzjVi9vnEmsrHku LB1jKRVheegop904DlRhv4ww IDEw iPZuONxwDYX3W66mh7R6LPGl FSNlWMD8aAD3xT7qoDtefjwc bGVmdDsgdmVydGljYWwtYWxp Z246 IHRvcDsnPlBhdGllbnQgTmFt EYt1B3GwRtl9BEXrpBqmIE8u hKGcXWaaXu4pfKfhdAauSK2v NTBp wofna294TbNur7sbPETwjTLh FIsdNDP7Y13rb0Z0PYBeVAPu FUX0nQZ3pJ2meDrjdvxiaOAt dDsg wpLiwFozIOxbCDrsV456IOHs iJagHyFftwCeLDEfdAL0SC71 HU51uDJkb5O5cYH8X6KxEMCe bmct resdzUU2WJGhNQNhjH96Sd9h fLgoPk7lKFLuTFZ7IQLjgOKk E2RlwP9uDfKrBPJaREYdA3Gc eHQt DFzaZ012XPjpNeS9ORCgppGe P7SgCKHwnMuoVqH8u1V6Mz3B H1L5XO83AA44cASzc6U1aPS9 J3Bh QMPazrxlrcbmpCS3DNXkQEQk sU86Jl6lyAfaGi4gVYMnQRD1 AHKghGRvK1NvtL8uViKjUIQv MDAw E8KquJZvNEwxQ369IWaaViH9 VBBbltShS4DaRAZmdZhlYnS3 c2Y7Dt4CPNv1NV09BT94vDEs c3R5 pTY5O7SiTRHpeodytzgraZN8 QMHvXDSsfM20Ag3brRriZl6n LMAhISL8WIBdaCHeM8SpaT6f OiAj OOBhQGFuP3RgoLTgWUphZ286 JInlOtE8BXZcbeXwR3EcQKXb uNccMcD2i6U8Ha7KYWBsHA59 IFR5 hCE7QF49HR49I9AdJbzdoTBw bGU+PHRhYmxlIHdpZHRoPScx SISkXzUdlXpgTR4iCa2xYZZx LWNv kFalhOLlBtJhm8kzORVnTMqc FG6ldLkzK5OllPL3FMVas2g3 Ie77B05aR4JupCH+PGNvbCB3 aWR0 uT7cKkVaJxE2ABalW198HuUo eCGjQhxhp5wbv0wmjTr8VkR0 QUKdrcGxoOriDQC4f8ZsJt42 Y29s IHdpZHRoPSIxNSUiIHZhbGln qq6ovL1yPf7+RDZafYR7sOG0 nL6fIxUlDlW0LQsxM029IiZd cCIv Vvyhf8dia2tkpPq7SvToFGHh flZkxAvjCHA6s1JxOe34D1Cg eZgfb2NpYhk0wj54oRHmn9V0 bGU9 G8YrPFHtalgluXNtbFwgCM9i YKMiyvwmPXVplC9gMJBzE2n1 IyZtUcW4TTdxA2GdcgV1JFQd cHQg SZpfNUE8I14gq8B9VUXuRNIt GBI6jEZ7tS0xwDahnhxceJCt bZfkxoUwcXggNCnzYBlxJ037 IHRv dEpgBWYhdT3rDAJmnQTcaOjn PE9lVMRxbstoZwwMX1xAWR7U LCBHUkVUVEEgQTwvdGQ+PHRk IHN0 dQaxXGybSPQwzN8yOCWwL3n4 WhRwGkC7TGksC5RzTKQxrlfa Uh70vY7xDrDoEsG3NFcsZ0Es bnQ6 CRWdiDRuRAggRQL1L92pt6C6 WZGkUIEoROY3xDC1uN6nvKub bjogbGVmdDsgdmVydGljYWwt YWxp C208CVXryWzqRoTyJiIlQlY9 OKR8H6AxJwe6WTBauMgiWC5p gPSsHAahBm8onDxivUkyLM7e NTBp xqlaNAWasA2oGPJlhXRlgRcv DN7bUKXbaazga443BoTwKHD3 SHCxrZLwD5OemQ9jFhQzREWm MDAw H6GajEUgJGkzM144TJukYoW4 AXWkrlAyL6LyKSAtmGlsEtP8 j9V6Jt68ZkDKKHUiqippnUA+ PHRk DCT9lWsyQUoaRATzsS3zZFLu E8u2XtMaHeM0RVcpH2InZTVb xfrsJh17cR7uGyXrKgY8INvi O2Zv jpC5XZDtmMMaPAplHIX7R31o v0Z0KXFeOJPhFPU5uTU6hU1d bGlnbjogbGVmdDsgdmVydGlj YWwt VAeeI517DACaxVntQmDwlMMc ZTwvdGQ+KUXdVOE0jWgrQExb ZXNwyV3cVKVfJ0i5JyIvZeW7 MGlu T0DySOOfdclhZn72lX9rEzEn RmC4VRnqY0QiemM0ZBObcMFz MQydIWP8E00pz2N7EQYjVKNx MDA7 tQB3dV6rlEluczsmfZFbqXmd krClhTkuAKmsIFarL854ZCYw oPheYi67iHWwzYefxsX6B6Kv Pjwv dHI+MF47BJCcRS42zSWtqZSp s0sttAy7ObBrUKMoGKS5vAse SLpoi0PtHFBbR77teWDso2B1 IGNv gXdroCOkKiThlSW6yI8lEXpy psrfk2uzcnvpAlroh3joiv10 oK38K26fIDcmXKIjJGXpMPMx IHZh pRfybl3nqR6qJa0+PGNvbCB3 lTB4mL6cYaVzNyF3RDcmC274 QyBadBVcMsfke6mfo9xssIn9 IjIw ZHTwwcFiyTanMAS2o3AvFc80 F39yDGonIFUiBGMiPFNvMHJw cAqfqt5sxP3fEq3+DJ1bh2za cm91 lU96iMS+TKHkHJK2vGzdSChw DFUakA2yBZzaHgT9ZLKvXyHq eX02cTGmBHmvJf4ahOfmpKgl MC4w LEVbxkljl278MaDgx1tcFZQz vYTmUYujVVW3R61lc0Q1ZFYk UMElUSI7dIP6xU6ulHxeameu bGVm eTaxfeGznHaaEBzvSKgjU367 NSLzwKnjIpXghOOcL3jpmeST JH5oKayfoRH+DILcKLC1eQrn PSdw KATgfI2kMIBgW5y6VhBiIkE6 JUqrE0EfxpE9GMQaiFApUHNh uRWHiC3loskhs7pohglqLtOb MDAw RLs5VOf5MIXrkLsvHpOcFGT3 NxE2NRF4jURprW4voWpjrsev vF6wKem+RklOOjwvdGQ+PHRk IHN0 pCosNIywRZQtaV1vLXOnO1j0 QzBmYzZ0KWurH2JknaA2MSZt aDVlLOJsdXDQnA1vhxqzx3su cjog ObGzCVXuTZg0FNj7PWQmjCzr VtOhFXN3VrI6RBI5hXWrmH9i nDevzihvwE4fLdr+TVJOOjwv dGQ+ NOVjXXP0oTwuMZbbVILsaZ7h CEQeK8g5HdUvRqI4XHwdA4Yo piE6AKUkiKMpGJYzoQXNyC6x cztj b4znolmjSaYzCNFeQSu2BBs8 JQZeiZbzVnCyJSJ8QzS6ZLB5 gNQgsR7phTclygluiN1hXwh+ UGF5 AEN2VA85AZ22F1GgFlanuCEu bGU+PHRhYmxlIHdpZHRoPScx ZXGdRlIjoDxxPL0vSw1aGZXq LWNv bGxh (more content not included)... [facility] Consent for Procedure/Surger yon 06-15-2020 Consent for Procedure/Surgery [id number]#1.00CD :127 [facility] Consent for Treatmenton 05-26 Consent for Treatment [id number]#1.00CD: 127 [facility] Discharge Instructionson Discharge Instructions [id number]#1.00CD :127 [facility] IntraOperative Documentson 0 06-15-2020 IntraOperative Documents [id number]#1.00CD :127 [facility] Main OR Intraoperative Recor don 06-15-2020 Main OR Intraoperative Record IntraOp Document Type FTURO Summary Primary Physician: Jude Finley Jr., MD Finalized Date/Time: 06/15/20 15:02:47 Pt. Name: ZACHARY MAYNARD Srinath Cordero/Sex: 1945 Female Med Rec #: [id number] Physician: Jude Finley Jr., MD Financial #: [id number] Pt. Type: O Room/Bed: / Admit/Disch: 06/15/20 13:40:05 - Institution: Case Times FTURO Entry 1 Patient Times In Room 06/15/20 14:48:00 Out Room 06/15/20 15:02:00 Procedure Times Start 06/15/20 14:50:00 Stop 06/15/20 14:52:00 Anesthesia Times Last Modified By: Sirisha Manuel RN 06/15/20 15:02:42 Case Attendance FTURO Entry 1 Entry 2 Entry 3 Case Attendee Tushar Nunez MD, Jude Farias [facility], Pauly Manuel RN, Sirisha Douglass Role Performed Surgeon - Primary Scrub - Primary Flue Cleaner - Primary Time In 06/15/20 14:48:00 06/15/20 [...] Jude Finley Jr., MD, Verified (If [facility]) Sirisha Manuel RN Time Out [...] By: Sirisha Manuel RN 06/15/20 15:02 [facility] Main OR Preoperative Recordo n 06-15-2020 Main OR Preoperative Record Holding Area Document Type FTURO Summary Primary Physician: Jude Finley Jr., MD Finalized Date/Time: 06/15/20 14:34:27 Pt. Name: ALEYDA, ZACHARY Yo D.O.B./Sex: 1945 Female Med Rec #: [id number] Physician: Jude Finley Jr., MD Financial #: [id number] Pt. Type: O Room/Bed: / Admit/Disch: 06/15/20 [...] 14:25 Sirisha Manuel RN 06/15/20 14:34 [facility] Operative Reporton Operative Report Patient: ZACHARY [...] urine. The Urethra was dilated to: 24 Togolese w/ sounds. Devices Implanted: None. Removal: Cystoscope is removed, The patient tolerated it well. Postoperative Information Discharge: Patient is discharged home with antibiotic coverage, Follow up arranged, Office visit will be planned to make arrangements for repair of cystocele.. [facility] Comment on above: Result Comment: Elec tronically Signed By: Jude Finley Jr., MD\.br\Date and Time Signed: 06/15/20 14:59 EDT Pre-Authorization for Medica l Treatmenton 06-13-2020 Pre-Authorization for Medical Treatment [id number]#1.00CD :127 [facility] Ambulatory Clinical Summaryo n 06-12-2020 Ambulatory Clinical Summary {[id number] }CD:[id number] [facility] Patient Educationon 06-13-19 Patient Education Urology [...] stimulation). ? For women, using a medical auditor to prevent urine leaks. This is a [...] after experiencing incontinence. General instructions ? Take apqu-gin-lbesyla and prescription medicines only as (more content not included)... [facility] Urology Office/Clinic Noteon 06-12-2020 Urology Office/Clinic Note Chief Complaint Patient is here for a follow up to [facility] for ball like object HPI Staff Zachary is a 75 y.o. female here for follow up to [place] [facility] for bladder hanging out, patient insists on planning surgery. Previous Dx: bladder infection, bladder outlet obstruction, dysuria, flank pain, gross hematuria, history of UTI, retention of urine, urethral stricture. 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 Patient was seen at [place] [facility] on 06/07/20 for a ball like [...] When Contact Information Jude Finley Jr., MD [phone] Additional Instructions: Patient Education Urinary Incontinence I, [...] Gross hematuria (more content not included)... [facility] Comment on above: Result Comment: Elec tronically Signed By: Jude Finley Jr., MD\.br\Date and Time Signed: 06/12/20 10:30 EDT\.br\Electronically Co-Signed By: Anastasia Cabral\.br\Date and Time Co-Signed: 06/12/20 10:24 EDT Coding Summary.on 05-23-2020 Coding Summary. CODING DATE: 021 FINAL [facility] STATUS: Home (Routine DC) PAYOR: Medicare APC [...] Ryann Villegas Date Saved: 05/23/2020 09:34 am [facility] Consenton 05-22-2020 Consent [id number]#1.00CD: 127 [facility] Consent for Procedure/Surger yon 05-18-2020 Consent for Procedure/Surgery [id number]#1.00CD :127 [facility] Consent for Treatmenton 04-25 Consent for Treatment [id number]#1.00CD :127 [facility] Consent for Treatment [id number]#1.00CD: 127 [facility] Discharge Instructionson Discharge Instructions [id number]#1.00CD :127 [facility] IntraOperative Documentson 0 05-18-2020 IntraOperative Documents [id number]#1.00CD :127 [facility] Main OR Intraoperative Recor don 05-18-2020 Main OR Intraoperative Record IntraOp Document Type FTURO Summary Primary Physician: Jude Finley Jr., MD Finalized Date/Time: 05/18/20 14:11:35 Pt. Name: MARIAMA MAYNARD/Sex: 1945 Female Med Rec #: [id number] Physician: Jude Finley Jr., MD Financial #: [id number] Pt. Type: O Room/Bed: / Admit/Disch: 05/18/20 [...] Kimberly A Role Performed Surgeon - Primary Flue Cleaner - Primary Scrub - Primary Time In [...] Glasgow RN, Lou Ann 05/18/20 14:11 [facility] Main OR Preoperative Recordo n 05-18-2020 Main OR Preoperative Record Holding Area Document Type FTURO Summary Primary Physician: Jude Finley Jr., MD Finalized Date/Time: 05/18/20 13:59:17 Pt. Name: MARIAMA MAYNARD /Sex: 1945 Female Med Rec #: [id number] Physician: Jude Finley Jr., MD Financial #: [id number] Pt. Type: O Room/Bed: / Admit/Disch: 05/18/20 [...] Glasgow RN, Lou Ann 05/18/20 13:59 [facility] Operative Reporton Operative Report Patient: Karl [...] urine. The Urethra was dilated to: 28 Togolese w/ sounds. Devices Implanted: None. Removal: Cystoscope is removed, The patient tolerated it well. Postoperative Information Discharge: Patient is discharged home with antibiotic coverage, Follow up arranged. [facility] Comment on above: Result Comment: Elec tronically Signed By: Tushar Nunez MD, Jude Farias\.br\Date and Time Signed: 05/18/20 14:02 EDT Ambulatory Clinical Summaryo n 05-11-2020 Ambulatory Clinical Summary {[id number] }CD:[id number] [facility] Patient Educationon 05-12-19 21 Patient Education [...] It is (more content not included)... [facility] Urology Office/Clinic Noteon 05-11-2020 Urology Office/Clinic [...] Will order Local anesthesia. ABX sent to [facility] in [place]. 2. Retention of urine (R33.9: Retention of [...] procedure, # 2 cap(s), Refills(s) 0, Pharmacy: [facility]/pharmacy #[id number], 163, cm, 05/11/20 8:31:00 EDT, Height/Length Dosing, 64.2, kg, 05/11/20 8:31:00 EDT, W... Measure Post Void residual urine and/or bladder capacity by US- non-imaging 99933 Urnls Dip Stick Auto w/o Microscopy POC 20401 I have reviewed the previous health record information and history for this pt. from Dr. Finley. Follow-up With When Contact Inf (more content not included)... [facility] Comment on above: Result Comment: Elec tronically Signed By: Tushar Nunez MD, Jude Farias\.br\Date and Time Signed: 05/11/20 10:45 EDT\.br\Electronically Co-Signed By: Kisha Stevens MA\.br\Date and Time Co-Signed: 05/11/20 08:53 EDT [facility] Clinical Summary {[id number] }CD:[id number] [facility] Patient Educationon 01-04-20 20 Patient Education [...] to a urinary tract infection. Only take rabc-rpv-bbhmpan or prescription medicines for pain, discomfort, or fever as directed by your caregiver. SEEK IMMEDIATE MEDICAL CARE IF: You develop chills, fever, or show signs of generalized illness that occurs prior to seeing your caregiver. Document Released: 02/09/2007 Document Revised: 05/04/2012 Document Reviewed: 01/12/2010 ExitCare? Patient Information ?2013 [employer] [facility] Urology Office/Clinic Noteon 01-04-2020 Urology Office/Clinic Note Chief Complaint f/u to cysto UD This patient is a 74-year-old female with a history of gross hematuria and urinary tract infection. She had a recent cystoscopic examination that showed no evidence of malignancy. She was treated by her primary care physician for another urinary tract infection. [facility] Staff Pt is here for f/u to [...] Urnls Dip Stick Auto w/o Microscopy POC 00665 3. Dysuria (R30.0: Dysuria) Mild burning w/ urination. I have reviewed the previous health record information and history for this pt. from Dr. Finley. Follow-up With When Contact Information Jude Finley Jr., MD [address] [place] [address]- Additional Instructions: 1mos. w/ pVR Patient Education [...] mg T (more content not included)... [facility] Comment on above: Result Comment: Elec tronically Signed By: Tushar Nunez MD, Jude Farias\.br\Date and Time Signed: 01/04/20 12:26 EST\.br\Electronically Co-Signed By: Kisha Stevens MA\.br\Date and Time Co-Signed: 01/04/20 12:01 EST Operative Reporton 0 Operative Report [id number]#1.00CD :127 [facility] Cult,Bloodon 10-18-2019 Cult,Blood Specimen Description .BLOOD Special Requests 3ML LT A.C. Culture NO GROWTH 6 DAYS Report Status FINAL 10/18/2019 Normal [facility] Comment on above: Performed By: #### C DP, CP, LIP, TROPI, LIPRF, GLYHGB #### [facility] [employer] [address] [place] [phone] Revenue Accounting Manager: Brandon Anaya MD Cult,Blood Specimen Description .BLOOD Special Requests back lt arm 3ml Culture NO GROWTH 6 DAYS Report Status FINAL 10/18/2019 [facility] Comment on above: Performed By: #### C DP, CP, LIP, TROPI, LIPRF, GLYHGB #### [facility] [employer] [address] [place] [address] [phone] Revenue Accounting Manager: Brandon Anaya MD Cult,Urineon 10-18-2019 Cult,Urine Specimen Description .CLEAN CATCH URINE Special Requests NOT REPORTED Culture STAPHYLOCOCCUS SPECIES, COAGULASE NEGATIVE >[id number] CFU/ML Report Status FINAL 10/17/2019 SUSCEPTIBILITY Organism [...] REPORTED Trimethoprim/Sulfa 20 SUSCEPTIBLE Vancomycin 1 SUSCEPTIBLE [facility] Comment on above: Performed By: #### C DP, CP, LIP, TROPI, LIPRF, GLYHGB #### [facility] [employer] [address] [place] [phone] Revenue Accounting Manager: Brandon Anaya MD Basic Metab w/rfx MGon 10-15 (cont.) [facility] Comment on above: Result Comment: Aver age GFR for 70 or more years old: 75 mL/min/1.73sq m Chronic Kidney Disease: <60 mL/min/1.73sq m Kidney failure: <15 mL/min/1.73sq m eGFR calculated using average adult body mass. Additional eGFR calculator available at: http://www.[employer].com/multiple_crcl_2012.htm Performed By: #### C DP, CP, LIP, TROPI, LIPRF, GLYHGB #### [facility] [employer] [address] [place] [phone] Revenue Accounting Manager: Brandon Anaya MD Anion gap [Moles/Vol] 13 mmol/L Normal 9-17 [facility] Comment on above: Performed By: #### C DP, CP, LIP, TROPI, LIPRF, GLYHGB #### [facility] [employer] [address] [place] [phone] Revenue Accounting Manager: Brandon Anaya MD Calcium [Mass/Vol] 8.6 mg/dL Normal 8.6-10.4 [facility] Comment on above: Performed By: #### C DP, CP, LIP, TROPI, LIPRF, GLYHGB #### [facility] [employer] [address] [place] [phone] Revenue Accounting Manager: Brandon nAaya MD Chloride [Moles/Vol] 97 mmol/L Low 98-107 [facility] Comment on above: Performed By: #### C DP, CP, LIP, TROPI, LIPRF, GLYHGB #### [facility] [employer] [address] [place] [phone] Revenue Accounting Manager: Brandon Anaya MD CO2 [Moles/Vol] 25 mmol/L Normal 20-31 [facility] Comment on above: Performed By: #### C DP, CP, LIP, TROPI, LIPRF, GLYHGB #### [facility] [employer] [address] [place] [phone] Revenue Accounting Manager: Brandon Anaya MD Creatinine [Mass/Vol] 0.42 mg/dL Low 0.50-0.90 [facility] Comment on above: Performed By: #### C DP, CP, LIP, TROPI, LIPRF, GLYHGB #### [facility] [employer] [address] [place] [phone] Revenue Accounting Manager: Brandon Anaya MD GFR, Amer >60 Normal >60 [facility] Comment on above: Performed By: #### C DP, CP, LIP, TROPI, LIPRF, GLYHGB #### [facility] [employer] [address] [place] [phone] Revenue Accounting Manager: Brandon Anaya MD GFR,non Amer >60 Normal >60 [facility] Comment on above: Performed By: #### C DP, CP, LIP, TROPI, LIPRF, GLYHGB #### [facility] [employer] [address] [place] [phone] Revenue Accounting Manager: Brandon Anaya MD Glucose [Mass/Vol] 87 mg/dL Normal 70-99 [facility] Comment on above: Performed By: #### C DP, CP, LIP, TROPI, LIPRF, GLYHGB #### [address] [address] Revenue Accounting Manager: Brandon Anaya MD Potassium [Moles/Vol] 3.7 mmol/L Normal 3.7-5.3 [facility] Comment on above: Performed By: #### C DP, CP, LIP, TROPI, LIPRF, GLYHGB #### [facility] [employer] [address] [place] [id number] Revenue Accounting Manager: Brandon Anaya MD Sodium [Moles/Vol] 135 mmol/L Normal 135-144 [facility] Comment on above: Performed By: #### C DP, CP, LIP, TROPI, LIPRF, GLYHGB #### [facility] [employer] [address] [place] [id number] Revenue Accounting Manager: Brandon Anaya MD Urea nitrogen [Mass/Vol] 14 mg/dL Normal 8-23 [facility] Comment on above: Performed By: #### C DP, CP, LIP, TROPI, LIPRF, GLYHGB #### [facility] [employer] [address] [place] [id number] Revenue Accounting Manager: Brandon Anaya MD BUN/CRE Ratio NOT REPORTED Normal 9-20 [facility] Comment on above: Performed By: #### C DP, CP, LIP, TROPI, LIPRF, GLYHGB #### [facility] [employer] [address] [place] [address] Revenue Accounting Manager: Brandon Anaya MD Staging: NOT REPORTED Normal [facility] Comment on above: Performed By: #### C DP, CP, LIP, TROPI, LIPRF, GLYHGB #### [facility] [employer] [address] [place] [address] Revenue Accounting Manager: Brandon Anaya MD Basic Metabolic Panel w/ Ref kervin to MGon 10-16-2019 Anion gap [Moles/Vol] 13 mmol/L 9 - 17 mmol/L [place], [place] Bun/Cre Ratio NOT REPORTED [place] Calcium [Mass/Vol] 8.6 mg/dL 8.6 - 10. 4 mg/dL [place] Chloride [Moles/Vol] 97 mmol/L Low 98 - 10 7 mmol/L [place] CO2 [Moles/Vol] 25 mmol/L 20 - 31 mmol/L [place] Creatinine [Mass/Vol] 0.42 mg/dL Low 0.5 - 0.9 mg/dL [place] GFR >60 >60 mL/min [place], [place] GFR Non- >60 >60 mL/min [place] GFR/1.73 sq M predicted among non-blacks MDRD (S/P/Bld) [Vol rate/Area] [place], [place] Comment on above: Average GFR for 70 o r more years old: 75 mL/min/1.73sq m Chronic Kidney Disease: <60 mL/min/1.73sq m Kidney failure: <15 mL/min/1.73sq m eGFR calculated using average adult body mass. Additional eGFR calculator available at: http://www.[employer]/multiple_crcl_2012.htm GFR/1.73 sq M predicted among non-blacks MDRD (S/P/Bld) [Vol rate/Area] NOT REPORTED [place], [place] Glucose [Mass/Vol] 87 mg/dL 70 - 99 mg/dL [place], [place] Interpretation and review of laboratory results Abnormal [place] Potassium [Moles/Vol] 3.7 mmol/L 3.7 - 5.3 mmol/L [place] Sodium [Moles/Vol] 135 mmol/L 135 - 144 mmol/L [place] Urea nitrogen [Mass/Vol] 14 mg/dL 8 - 23 mg/dL [place] CBC auto differentialon 09-25 Basophils (Bld) [#/Vol] 0.04 10*3/uL [place] Basophils/100 WBC (Bld) 0 % 0 - 2 % [place] Differential Type NOT [place] Eosinophils (Bld) [#/Vol] 0.10 10*3/uL [place] Eosinophils/100 WBC (Bld) 1 % 1 - 4 % [place] Erythrocyte distribution width (RBC) [Ratio] 14.6 % High 11.8 - 14.4 % [place] Hematocrit (Bld) [Volume fraction] 40.2 % 36.3 - 47.1 % [place] Hemoglobin (Bld) [Mass/Vol] 12.6 g/dL 11.9 - 15.1 g/dL [place] Immature granulocytes (Bld) [#/Vol] 0.08 10*3/uL [place] Immature granulocytes (Bld) [#/Vol] 1 % High 0 [place] Interpretation and review of laboratory results Abnormal [place] Lymphocytes (Bld) [#/Vol] 3.05 10*3/uL [place] Lymphocytes/100 WBC (Bld) 32 % 24 - 43 % [place] MCH (RBC) [Entitic mass] 29.0 pg 25.2 - 33.5 pg [place] MCHC (RBC) [Mass/Vol] 31.3 g/dL 28.4 - 34.8 g/dL [place] MCV (RBC) [Entitic vol] 92.4 fL 82.6 - 102.9 fL [place] Monocytes (Bld) [#/Vol] 0.76 10*3/uL [place] Monocytes/100 WBC (Bld) 8 % 3 - 12 % [place] Platelet mean volume (Bld) [Entitic vol] 10.6 fL 8.1 - 13.5 fL [place] Platelets (Bld) [#/Vol] 216 10*3/uL [place] Platelets (Bld) [#/Vol] NOT REPORTED [place] RBC (Bld) [#/Vol] 4.35 10*6/uL 3.95 - 5.1 1 m/uL [place] RBC morphology finding Nom (Bld) ANISOCYTOSIS PRESENT [place] Segmented neutrophils/100 WBC (Bld) 58 % 36 - 65 % [place] Segs Absolute 5.61 [place] WBC (Bld) [#/Vol] 9.6 10*3/uL [place] WBC (Bld) [#/Vol] 0.0 10*3/uL 0.0 per 10 0 WBC [place] WBC Morphology NOT REPORTED [place] CBC with Diffon 10-16-2019 Abs. Basophil 0.04 k/uL Normal 0.00-0.20 [facility] Comment on above: Performed By: #### C DP, CP, LIP, TROPI, LIPRF, GLYHGB #### [facility] [employer] [address] [place], [place] [phone] Revenue Accounting Manager: Brandon Anaya MD Abs.Imm.Granulocyte 0.08 k/uL Normal 0.00-0.30 [facility] Comment on above: Performed By: #### C DP, CP, LIP, TROPI, LIPRF, GLYHGB #### [facility] [employer] [address] [place], [place] [phone] Revenue Accounting Manager: Brandon Anaya MD Abs.Neutrophil (Seg) 5.61 k/uL Normal 1.50-8.10 [facility] Comment on above: Performed By: #### C DP, CP, LIP, TROPI, LIPRF, GLYHGB #### [address] [address] Revenue Accounting Manager: Brandon Anaya MD Basophils/100 WBC (Bld) 0 % Normal 0-2 [facility] Comment on above: Performed By: #### C DP, CP, LIP, TROPI, LIPRF, GLYHGB #### [address] [address] Revenue Accounting Manager: Brandon Anaya MD Eosinophils (Bld) [#/Vol] 0.10 10*3/uL Normal 0.00-0.44 [facility] Comment on above: Performed By: #### C DP, CP, LIP, TROPI, LIPRF, GLYHGB #### [address] [address] Revenue Accounting Manager: Brandon Anaya MD Eosinophils/100 WBC (Bld) 1 % Normal 1-4 [facility] Comment on above: Performed By: #### C DP, CP, LIP, TROPI, LIPRF, GLYHGB #### [place] [address] Revenue Accounting Manager: Brandon Anaya MD Erythrocyte distribution width (RBC) [Ratio] 14.6 % High 11.8-14.4 [facility] Comment on above: Performed By: #### C DP, CP, LIP, TROPI, LIPRF, GLYHGB #### [place] [address] Revenue Accounting Manager: Brandon Anaya MD Hematocrit (Bld) [Volume fraction] 40.2 % Normal 36.3-47.1 [facility] Comment on above: Performed By: #### C DP, CP, LIP, TROPI, LIPRF, GLYHGB #### [address] [address] Revenue Accounting Manager: Brandon Anaya MD Hemoglobin (Bld) [Mass/Vol] 12.6 g/dL Normal 11.9-15.1 [facility] Comment on above: Performed By: #### C DP, CP, LIP, TROPI, LIPRF, GLYHGB #### [address] [address] Revenue Accounting Manager: Brandon Anaya MD Immature granulocytes (Bld) [#/Vol] 1 % High 0 [facility] Comment on above: Performed By: #### C DP, CP, LIP, TROPI, LIPRF, GLYHGB #### [address] [address] Revenue Accounting Manager: Brandon Anaya MD Lymphocytes (Bld) [#/Vol] 3.05 10*3/uL Normal 1.10-3.70 [facility] Comment on above: Performed By: #### C DP, CP, LIP, TROPI, LIPRF, GLYHGB #### [place] [address] Revenue Accounting Manager: Brandon Anaya MD Lymphocytes/100 WBC (Bld) 32 % Normal 24-43 [facility] Comment on above: Performed By: #### C DP, CP, LIP, TROPI, LIPRF, GLYHGB #### [address] [address] Revenue Accounting Manager: Brandon Anaya MD MCH (RBC) [Entitic mass] 29.0 pg Normal 25.2-33.5 [facility] Comment on above: Performed By: #### C DP, CP, LIP, TROPI, LIPRF, GLYHGB #### [address] [address] Revenue Accounting Manager: Brandon Anaya MD MCHC (RBC) [Mass/Vol] 31.3 g/dL Normal 28.4-34.8 [facility] Comment on above: Performed By: #### C DP, CP, LIP, TROPI, LIPRF, GLYHGB #### [address] [address] Revenue Accounting Manager: Brandon Anaya MD MCV (RBC) [Entitic vol] 92.4 fL Normal 82.6-102.9 [facility] Comment on above: Performed By: #### C DP, CP, LIP, TROPI, LIPRF, GLYHGB #### [address] [address] Revenue Accounting Manager: Brandon Anaya MD Monocytes (Bld) [#/Vol] 0.76 10*3/uL Normal 0.10-1.20 [facility] Comment on above: Performed By: #### C DP, CP, LIP, TROPI, LIPRF, GLYHGB #### [address] [address] Revenue Accounting Manager: Brandon Anaya MD Monocytes/100 WBC (Bld) 8 % Normal 3-12 [facility] Comment on above: Performed By: #### C DP, CP, LIP, TROPI, LIPRF, GLYHGB #### [address] [address] Revenue Accounting Manager: Brandon Anaya MD Neutrophil (Seg) 58 % Normal 36-65 [facility] Comment on above: Performed By: #### C DP, CP, LIP, TROPI, LIPRF, GLYHGB #### [address] [address] Revenue Accounting Manager: Brandon Anaya MD NRBC Automated 0.0 per 100 WBC Normal 0.0 [facility] Comment on above: Performed By: #### C DP, CP, LIP, TROPI, LIPRF, GLYHGB #### [address] [address] Revenue Accounting Manager: Brandon Anaya MD Platelet mean volume (Bld) [Entitic vol] 10.6 fL Normal 8.1-13.5 [facility] Comment on above: Performed By: #### C DP, CP, LIP, TROPI, LIPRF, GLYHGB #### [address] [address] Revenue Accounting Manager: Brandon Anaya MD Platelets (Bld) [#/Vol] 216 10*3/uL Normal 138-453 [facility] Comment on above: Performed By: #### C DP, CP, LIP, TROPI, LIPRF, GLYHGB #### [address] [address] Revenue Accounting Manager: Brandon Anaya MD RBC (Bld) [#/Vol] 4.35 10*6/uL Normal 3.95-5.11 [facility] Comment on above: Performed By: #### C DP, CP, LIP, TROPI, LIPRF, GLYHGB #### [address] [address] Revenue Accounting Manager: Brandon Anaya MD RBC morphology finding Nom (Bld) ANISOCYTOSIS PRESENT Normal [facility] Comment on above: Performed By: #### C DP, CP, LIP, TROPI, LIPRF, GLYHGB #### [address] [address] Revenue Accounting Manager: Brandon Anaya MD WBC (Bld) [#/Vol] 9.6 10*3/uL Normal 3.5-11.3 [facility] Comment on above: Performed By: #### C DP, CP, LIP, TROPI, LIPRF, GLYHGB #### [address] [address] Revenue Accounting Manager: Brandon Anaya MD Auto Diff Performed NOT REPORTED Normal [facility] Comment on above: Performed By: #### C DP, CP, LIP, TROPI, LIPRF, GLYHGB #### [address] [address] Revenue Accounting Manager: Brandon Anaya MD Platelets (Bld) [#/Vol] NOT REPORTED Normal [facility] Comment on above: Performed By: #### C DP, CP, LIP, TROPI, LIPRF, GLYHGB #### [facility] [address] [place] [address] Revenue Accounting Manager: Brandon Anaya MD WBC Morphology NOT REPORTED Normal [facility] Comment on above: Performed By: #### C DP, CP, LIP, TROPI, LIPRF, GLYHGB #### [facility] [address] [place] [address] Revenue Accounting Manager: Brandon Anaya MD MRI LUMBAR SPINE W [...] Tiffany Lindsay MD 10/15/19 Final result Normal [facility] POC Glucose Fingerstickon Glucose [Mass/Vol] 98 mg/dL 65 - 105 mg/dL [place] Glucose [Mass/Vol] 107 mg/dL High 65 - 105 mg/dL [place] Interpretation and review of laboratory results Abnormal [place] Glucose [Mass/Vol] 81 mg/dL 65 - 105 mg/dL [place] URINALYSIS WITH MICROSCOPICo n 10-16-2019 Amorphous, UA NOT REPORTED None [place] Bacteria, UA MODERATE Abnormal None [place] Bilirubin Urine Negative NEGATIVE [place] Casts UA 0 TO 2 HYALINE Refer ence range defined for non-centrifuged specimen. [place] Color, UA YELLOW YELLOW [place] Crystals, UA NOT REPORTED None /HPF [place] Epithelial Cells UA 0 TO 2 [place] Glucose, Ur Negative NEGATIVE [place] Interpretation and review of laboratory results Abnormal [place] Ketones Ql (U) SMALL Abnormal NEGATIVE [place] Leukocyte esterase Test strip Ql (U) Negative NEGATIVE [place] Mucus, UA NOT REPORTED None [place] Nitrite, Urine Negative NEGATIVE [place] Other Observations UA NOT REPORTED NOT REQ. M [place] pH, UA 8.0 [place] Protein (U) [Mass/Vol] Negative NEGATIVE [place] RBC (U) [#/Vol] 2 TO 5 [place] Comment on above: Reference range defi nya for non-centrifuged specimen. Renal Epithelial, UA NOT REPORTED 0 /HPF [place] Specific [place], UA 1.006 [place] Trichomonas, UA NOT REPORTED None [place] Turbidity UA CLOUDY Abnormal CLEAR [place] Urine Hgb Negative NEGATIVE [place] Urobilinogen, Urine Normal Normal [place] WBC, UA 0 TO 2 [place] Yeast, UA NOT REPORTED None [place] Urinalysis w/ Microon 2019 ----- Normal [facility] Comment on above: Performed By: #### C DP, CP, LIP, TROPI, LIPRF, GLYHGB #### [facility] [employer] [address] [place] [phone] Revenue Accounting Manager: Brandon Anaya MD Acetoacetic Acid,Ur SMALL Abnormal NEG [facility] Comment on above: Performed By: #### C DP, CP, LIP, TROPI, LIPRF, GLYHGB #### [facility] [employer] [address] [place] [address] Revenue Accounting Manager: Brandon Anaya MD Bacteria LM.HPF (Urine sed) [#/Area] MODERATE Abnormal NONE [facility] Comment on above: Performed By: #### C DP, CP, LIP, TROPI, LIPRF, GLYHGB #### [facility] [employer] [address] [place] [address] Revenue Accounting Manager: Brandon Anaya MD Bilirubin, SemiQt,Ur Negative Normal NEG [facility] Comment on above: Performed By: #### C DP, CP, LIP, TROPI, LIPRF, GLYHGB #### [address] [address] Revenue Accounting Manager: Brandon Anaya MD Casts LM.LPF (Urine sed) [#/Area] 0 TO 2 HYALINE Normal 0-8 [facility] Comment on above: Result Comment: Refe rence range defined for non-centrifuged specimen. Performed By: #### C DP, CP, LIP, TROPI, LIPRF, GLYHGB #### [address] [address] Revenue Accounting Manager: Brandon Anaya MD Color (U) YELLOW Normal YEL [facility] Comment on above: Performed By: #### C DP, CP, LIP, TROPI, LIPRF, GLYHGB #### [address] [address] Revenue Accounting Manager: Brandon Anaya MD Epithelial cells LM.HPF (Urine sed) [#/Area] 0 TO 2 Normal 0-5 [facility] Comment on above: Performed By: #### C DP, CP, LIP, TROPI, LIPRF, GLYHGB #### [address] [address] Revenue Accounting Manager: Brandon Anaya MD Glucose Ql (U) Negative Normal NEG [facility] Comment on above: Performed By: #### C DP, CP, LIP, TROPI, LIPRF, GLYHGB #### [address] [address] Revenue Accounting Manager: Brandon Anaya MD Hemoglobin, Ur Negative Normal NEG [facility] Comment on above: Performed By: #### C DP, CP, LIP, TROPI, LIPRF, GLYHGB #### [address] [address] Revenue Accounting Manager: Brandon Anaya MD Leukocyte esterase Test strip Ql (U) Negative Normal NEG [facility] Comment on above: Performed By: #### C DP, CP, LIP, TROPI, LIPRF, GLYHGB #### [address] [address] Revenue Accounting Manager: Brandon Anaya MD Nitrite,Ur Negative Normal NEG [facility] Comment on above: Performed By: #### C DP, CP, LIP, TROPI, LIPRF, GLYHGB #### [place] [address] Revenue Accounting Manager: Brandon Anaya MD pH (U) 8.0 [pH] Normal 5.0-8.0 [facility] Comment on above: Performed By: #### C DP, CP, LIP, TROPI, LIPRF, GLYHGB #### [place] [address] Revenue Accounting Manager: Brandon Anaya MD Protein Ql (U) Negative Normal NEG [facility] Comment on above: Performed By: #### C DP, CP, LIP, TROPI, LIPRF, GLYHGB #### [facility] [employer] [address] [place] [address] Revenue Accounting Manager: Brandon Anaya MD RBC (U) [#/Vol] 2 TO 5 Normal 0-4 [facility] Comment on above: Result Comment: Refe rence range defined for non-centrifuged specimen. Performed By: #### C DP, CP, LIP, TROPI, LIPRF, GLYHGB #### [facility] [employer] [address] [place] [address] Revenue Accounting Manager: Brandon Anaya MD Specific gravity (U) [Rel density] 1.006 Normal 1.005-1.030 [facility] Comment on above: Performed By: #### C DP, CP, LIP, TROPI, LIPRF, GLYHGB #### [address] [address] Revenue Accounting Manager: Brandon Anaya MD Turbidity CLOUDY Abnormal CLEAR [facility] Comment on above: Performed By: #### C DP, CP, LIP, TROPI, LIPRF, GLYHGB #### [facility] [address] [place] [address] Revenue Accounting Manager: Brandon Anaya MD Urobilinogen,Ur Normal Normal NORM [facility] Comment on above: Performed By: #### C DP, CP, LIP, TROPI, LIPRF, GLYHGB #### [address] [address] Revenue Accounting Manager: Brandon Anaya MD WBC (U) [#/Vol] 0 TO 2 Normal 0-5 [facility] Comment on above: Performed By: #### C DP, CP, LIP, TROPI, LIPRF, GLYHGB #### [address] [address] Revenue Accounting Manager: Brandon Anaya MD Amorphous sediment LM Ql (Urine sed) NOT REPORTED Normal NONE [facility] Comment on above: Performed By: #### C DP, CP, LIP, TROPI, LIPRF, GLYHGB #### [address] [address] Revenue Accounting Manager: Brandon Anaya MD Crystals LM Nom (Urine sed) NOT REPORTED Normal NONE [facility] Comment on above: Performed By: #### C DP, CP, LIP, TROPI, LIPRF, GLYHGB #### [address] [address] Revenue Accounting Manager: Brandon Anaya MD Epithelial, Renal NOT REPORTED Normal 0 [facility] Comment on above: Performed By: #### C DP, CP, LIP, TROPI, LIPRF, GLYHGB #### [address] [address] Revenue Accounting Manager: Brandon Anaya MD Mucus Strands NOT REPORTED Normal [facility] Comment on above: Performed By: #### C DP, CP, LIP, TROPI, LIPRF, GLYHGB #### [address] [address] Revenue Accounting Manager: Brandon Anaya MD Other Observations NOT REPORTED Normal NREQ [facility] Comment on above: Performed By: #### C DP, CP, LIP, TROPI, LIPRF, GLYHGB #### [address] [address] Revenue Accounting Manager: Brandon Anaya MD Trichomonas NOT REPORTED Normal [facility] Comment on above: Performed By: #### C DP, CP, LIP, TROPI, LIPRF, GLYHGB #### [address] [address] Revenue Accounting Manager: Brandon Anaya MD Yeast LM Ql (Urine sed) NOT REPORTED Normal [facility] Comment on above: Performed By: #### C DP, CP, LIP, TROPI, LIPRF, GLYHGB #### [address] [address] Revenue Accounting Manager: Brandon Anaya MD Basic Metab w/rfx MGon 10-14 (cont.) Normal [facility] Comment on above: Result Comment: Aver age GFR for 70 or more years old: 75 mL/min/1.73sq m Chronic Kidney Disease: <60 mL/min/1.73sq m Kidney failure: <15 mL/min/1.73sq m eGFR calculated using average adult body mass. Additional eGFR calculator available at: http://www.[employer]/multiple_crcl_2012.htm Performed By: #### C DP, CP, LIP, TROPI, LIPRF, GLYHGB #### [facility] [employer] [address] [place] [address] Revenue Accounting Manager: Brandon Anaya MD Anion gap [Moles/Vol] 14 mmol/L Normal 9-17 [facility] Comment on above: Performed By: #### C DP, CP, LIP, TROPI, LIPRF, GLYHGB #### [facility] [employer] [address] [place] [address] Revenue Accounting Manager: Brandon Anaya MD Calcium [Mass/Vol] 8.8 mg/dL Normal 8.6-10.4 [facility] Comment on above: Performed By: #### C DP, CP, LIP, TROPI, LIPRF, GLYHGB #### [facility] [employer] [address] [place] [address] Revenue Accounting Manager: Brandon Anaya MD Chloride [Moles/Vol] 94 mmol/L Low 98-107 [facility] Comment on above: Performed By: #### C DP, CP, LIP, TROPI, LIPRF, GLYHGB #### [facility] [employer] [address] [place] [address] Revenue Accounting Manager: Brandon Anaya MD CO2 [Moles/Vol] 23 mmol/L Normal 20-31 [facility] Comment on above: Performed By: #### C DP, CP, LIP, TROPI, LIPRF, GLYHGB #### [facility] [employer] [address] [place] [address] Revenue Accounting Manager: Brandon Anaya MD Creatinine [Mass/Vol] 0.36 mg/dL Low 0.50-0.90 [facility] Comment on above: Performed By: #### C DP, CP, LIP, TROPI, LIPRF, GLYHGB #### [facility] [employer] [address] [place] [address] Revenue Accounting Manager: Brandon Anaya MD GFR, Amer >60 Normal >60 [facility] Comment on above: Performed By: #### C DP, CP, LIP, TROPI, LIPRF, GLYHGB #### [address] [address] Revenue Accounting Manager: Brandon Anaya MD GFR,non Amer >60 Normal >60 [facility] Comment on above: Performed By: #### C DP, CP, LIP, TROPI, LIPRF, GLYHGB #### [address] [address] Revenue Accounting Manager: Brandon Anaya MD Glucose [Mass/Vol] 89 mg/dL Normal 70-99 [facility] Comment on above: Performed By: #### C DP, CP, LIP, TROPI, LIPRF, GLYHGB #### [address] [address] Revenue Accounting Manager: Brandon Anaya MD Potassium [Moles/Vol] 3.7 mmol/L Normal 3.7-5.3 [facility] Comment on above: Performed By: #### C DP, CP, LIP, TROPI, LIPRF, GLYHGB #### [address] [address] Revenue Accounting Manager: Brandon Anaya MD Sodium [Moles/Vol] 131 mmol/L Low 135-144 [facility] Comment on above: Performed By: #### C DP, CP, LIP, TROPI, LIPRF, GLYHGB #### [address] [address] Revenue Accounting Manager: Brandon Anaya MD Urea nitrogen [Mass/Vol] 16 mg/dL Normal 8-23 [facility] Comment on above: Performed By: #### C DP, CP, LIP, TROPI, LIPRF, GLYHGB #### [address] [address] Revenue Accounting Manager: Brandon Anaya MD BUN/CRE Ratio NOT REPORTED Normal 9-20 [facility] Comment on above: Performed By: #### C DP, CP, LIP, TROPI, LIPRF, GLYHGB #### [facility] [address] [place], [place] [phone] Revenue Accounting Manager: Brandon Anaya MD Staging: NOT REPORTED Normal [facility] Comment on above: Performed By: #### C DP, CP, LIP, TROPI, LIPRF, GLYHGB #### [facility] [employer] [address] [place], [place] [phone] Revenue Accounting Manager: Brandon Anaya MD Basic Metabolic Panel w/ Ref kervin to [facility] 10-15-2019 Anion gap [Moles/Vol] 14 mmol/L 9 - 17 mmol/L [place] Bun/Cre Ratio NOT REPORTED [place] Calcium [Mass/Vol] 8.8 mg/dL 8.6 - 10. 4 mg/dL [place] Chloride [Moles/Vol] 94 mmol/L Low 98 - 10 7 mmol/L [place] CO2 [Moles/Vol] 23 mmol/L 20 - 31 mmol/L [place] Creatinine [Mass/Vol] 0.36 mg/dL Low 0.5 - 0.9 mg/dL [place] GFR >60 >60 mL/min [place] GFR Non- >60 >60 mL/min [place] GFR/1.73 sq M predicted among non-blacks MDRD (S/P/Bld) [Vol rate/Area] [place] Comment on above: Average GFR for 70 o r more years old: 75 mL/min/1.73sq m Chronic Kidney Disease: <60 mL/min/1.73sq m Kidney failure: <15 mL/min/1.73sq m eGFR calculated using average adult body mass. Additional eGFR calculator available at: http://www.[employer]/multiple_crcl_2012.htm GFR/1.73 sq M predicted among non-blacks MDRD (S/P/Bld) [Vol rate/Area] NOT REPORTED [place] Glucose [Mass/Vol] 89 mg/dL 70 - 99 mg/dL [place] Interpretation and review of laboratory results Abnormal [place] Potassium [Moles/Vol] 3.7 mmol/L 3.7 - 5.3 mmol/L [place] Sodium [Moles/Vol] 131 mmol/L Low 135 - 144 mmol/L [place] Urea nitrogen [Mass/Vol] 16 mg/dL 8 - 23 mg/dL [place] CBC auto differentialon 09-25 Basophils (Bld) [#/Vol] 0.06 10*3/uL [place] Basophils/100 WBC (Bld) 1 % 0 - 2 % [place] Differential Type NOT REPORTED [place] Eosinophils (Bld) [#/Vol] 0.13 10*3/uL [place] Eosinophils/100 WBC (Bld) 1 % 1 - 4 % [place] Erythrocyte distribution width (RBC) [Ratio] 14.6 % High 11.8 - 14.4 % [place] Hematocrit (Bld) [Volume fraction] 41.6 % 36.3 - 47.1 % [place] Hemoglobin (Bld) [Mass/Vol] 13.4 g/dL 11.9 - 15.1 g/dL [place] Immature granulocytes (Bld) [#/Vol] 1 % High 0 [place] Immature granulocytes (Bld) [#/Vol] 0.11 10*3/uL [place] Interpretation and review of laboratory results Abnormal [place] Lymphocytes (Bld) [#/Vol] 2.56 10*3/uL [place] Lymphocytes/100 WBC (Bld) 24 % 24 - 43 % [place] MCH (RBC) [Entitic mass] 29.3 pg 25.2 - 33.5 pg [place] MCHC (RBC) [Mass/Vol] 32.2 g/dL 28.4 - 34.8 g/dL [place] MCV (RBC) [Entitic vol] 90.8 fL 82.6 - 102.9 fL [place] Monocytes (Bld) [#/Vol] 0.78 10*3/uL [place] Monocytes/100 WBC (Bld) 7 % 3 - 12 % [place] Platelet mean volume (Bld) [Entitic vol] 10.6 fL 8.1 - 13.5 fL [place] Platelets (Bld) [#/Vol] NOT REPORTED [place] Platelets (Bld) [#/Vol] 241 10*3/uL [place] RBC (Bld) [#/Vol] 4.58 10*6/uL 3.95 - 5.1 1 m/uL [place] RBC morphology finding Nom (Bld) ANISOCYTOSIS PRESENT [place] Segmented neutrophils/100 WBC (Bld) 66 % High 36 - 65 % [place] Segs Absolute 7.00 [place] WBC (Bld) [#/Vol] 10.6 10*3/uL [place] WBC (Bld) [#/Vol] 0.0 10*3/uL 0.0 per 10 0 WBC [place] WBC Morphology NOT REPORTED [place] CBC with Diffon 10-15-2019 Abs. Basophil 0.06 k/uL Normal 0.00-0.20 [facility] Comment on above: Performed By: #### C DP, CP, LIP, TROPI, LIPRF, GLYHGB #### [facility] [address] [place], [place] [phone] Revenue Accounting Manager: Brandon Anaya MD Abs.Imm.Granulocyte 0.11 k/uL Normal 0.00-0.30 [facility] Comment on above: Performed By: #### C DP, CP, LIP, TROPI, LIPRF, GLYHGB #### [facility] [employer] [address] [place] [address] Revenue Accounting Manager: Brandon Anaya MD Abs.Neutrophil (Seg) 7.00 k/uL Normal 1.50-8.10 [facility] Comment on above: Performed By: #### C DP, CP, LIP, TROPI, LIPRF, GLYHGB #### [facility] [employer] [address] [place] [phone] Revenue Accounting Manager: Brandon Anaya MD Basophils/100 WBC (Bld) 1 % Normal 0-2 [facility] Comment on above: Performed By: #### C DP, CP, LIP, TROPI, LIPRF, GLYHGB #### [address] [address] Revenue Accounting Manager: Brandon Anaya MD Eosinophils (Bld) [#/Vol] 0.13 10*3/uL Normal 0.00-0.44 [facility] Comment on above: Performed By: #### C DP, CP, LIP, TROPI, LIPRF, GLYHGB #### [place] [address] Revenue Accounting Manager: Brandon Anaya MD Eosinophils/100 WBC (Bld) 1 % Normal 1-4 [facility] Comment on above: Performed By: #### C DP, CP, LIP, TROPI, LIPRF, GLYHGB #### [place] [address] Revenue Accounting Manager: Brandon Anaya MD Erythrocyte distribution width (RBC) [Ratio] 14.6 % High 11.8-14.4 [facility] Comment on above: Performed By: #### C DP, CP, LIP, TROPI, LIPRF, GLYHGB #### [facility] [employer] [address] [place] [address] Revenue Accounting Manager: Brandon Anaya MD Hematocrit (Bld) [Volume fraction] 41.6 % Normal 36.3-47.1 [facility] Comment on above: Performed By: #### C DP, CP, LIP, TROPI, LIPRF, GLYHGB #### [facility] [employer] [address] [place] [address] Revenue Accounting Manager: Brandon Anaya MD Hemoglobin (Bld) [Mass/Vol] 13.4 g/dL Normal 11.9-15.1 [facility] Comment on above: Performed By: #### C DP, CP, LIP, TROPI, LIPRF, GLYHGB #### [address] [address] Revenue Accounting Manager: Brandon Anaya MD Immature granulocytes (Bld) [#/Vol] 1 % High 0 [facility] Comment on above: Performed By: #### C DP, CP, LIP, TROPI, LIPRF, GLYHGB #### [address] [address] Revenue Accounting Manager: Brandon Anaya MD Lymphocytes (Bld) [#/Vol] 2.56 10*3/uL Normal 1.10-3.70 [facility] Comment on above: Performed By: #### C DP, CP, LIP, TROPI, LIPRF, GLYHGB #### [address] [address] Revenue Accounting Manager: Brandon Anaya MD Lymphocytes/100 WBC (Bld) 24 % Normal 24-43 [facility] Comment on above: Performed By: #### C DP, CP, LIP, TROPI, LIPRF, GLYHGB #### [address] [address] Revenue Accounting Manager: Brandon Anaya MD MCH (RBC) [Entitic mass] 29.3 pg Normal 25.2-33.5 [facility] Comment on above: Performed By: #### C DP, CP, LIP, TROPI, LIPRF, GLYHGB #### [address] [address] Revenue Accounting Manager: Brandon Anaya MD MCHC (RBC) [Mass/Vol] 32.2 g/dL Normal 28.4-34.8 [facility] Comment on above: Performed By: #### C DP, CP, LIP, TROPI, LIPRF, GLYHGB #### [address] [address] Revenue Accounting Manager: Brandon Anaya MD MCV (RBC) [Entitic vol] 90.8 fL Normal 82.6-102.9 [facility] Comment on above: Performed By: #### C DP, CP, LIP, TROPI, LIPRF, GLYHGB #### [address] [address] Revenue Accounting Manager: Brandon Anaya MD Monocytes (Bld) [#/Vol] 0.78 10*3/uL Normal 0.10-1.20 [facility] Comment on above: Performed By: #### C DP, CP, LIP, TROPI, LIPRF, GLYHGB #### [place] [address] Revenue Accounting Manager: Brandon Anaya MD Monocytes/100 WBC (Bld) 7 % Normal 3-12 [facility] Comment on above: Performed By: #### C DP, CP, LIP, TROPI, LIPRF, GLYHGB #### [address] [address] Revenue Accounting Manager: Brandon Anaya MD Neutrophil (Seg) 66 % High 36-65 [facility] Comment on above: Performed By: #### C DP, CP, LIP, TROPI, LIPRF, GLYHGB #### [address] [address] Revenue Accounting Manager: Brandon Anaya MD NRBC Automated 0.0 per 100 WBC Normal 0.0 [facility] Comment on above: Performed By: #### C DP, CP, LIP, TROPI, LIPRF, GLYHGB #### [address] [address] Revenue Accounting Manager: Brandon Anaya MD Platelet mean volume (Bld) [Entitic vol] 10.6 fL Normal 8.1-13.5 [facility] Comment on above: Performed By: #### C DP, CP, LIP, TROPI, LIPRF, GLYHGB #### [address] [address] Revenue Accounting Manager: Brandon Anaya MD Platelets (Bld) [#/Vol] 241 10*3/uL Normal 138-453 [facility] Comment on above: Performed By: #### C DP, CP, LIP, TROPI, LIPRF, GLYHGB #### [address] [address] Revenue Accounting Manager: Brandon Anaya MD RBC (Bld) [#/Vol] 4.58 10*6/uL Normal 3.95-5.11 [facility] Comment on above: Performed By: #### C DP, CP, LIP, TROPI, LIPRF, GLYHGB #### [address] [address] Revenue Accounting Manager: Brandon Anaya MD RBC morphology finding Nom (Bld) ANISOCYTOSIS PRESENT Normal [facility] Comment on above: Performed By: #### C DP, CP, LIP, TROPI, LIPRF, GLYHGB #### [address] [address] Revenue Accounting Manager: Brandon Anaya MD WBC (Bld) [#/Vol] 10.6 10*3/uL Normal 3.5-11.3 [facility] Comment on above: Performed By: #### C DP, CP, LIP, TROPI, LIPRF, GLYHGB #### [address] [address] Revenue Accounting Manager: Brandon Anaya MD Auto Diff Performed NOT REPORTED Normal [facility] Comment on above: Performed By: #### C DP, CP, LIP, TROPI, LIPRF, GLYHGB #### [facility] [address] [place] [address] Revenue Accounting Manager: Brandon Anaya MD Platelets (Bld) [#/Vol] NOT REPORTED Normal [facility] Comment on above: Performed By: #### C DP, CP, LIP, TROPI, LIPRF, GLYHGB #### [facility] [address] [place] [address] Revenue Accounting Manager: Brandon Anaya MD WBC Morphology NOT REPORTED Normal [facility] Comment on above: Performed By: #### C DP, CP, LIP, TROPI, LIPRF, GLYHGB #### [facility] [employer] [address] [place] [address] Revenue Accounting Manager: Brandon Anaya MD MRI LUMBAR SPINE W [...] 2013; 10(10):789-794; J Vasc Surg. 2018; 67:2-77 [place], [place] EXAMINATION: MRI OF THE LUMBAR SPINE [...] are intact. The neural foramina are intact. [facility]- [place], [place] Prieto, Mhpn Incoming Radiant Results From [employer] - 10/15/2019 11:11 PM EDT EXAMINATION: MRI [...] 2013; 10(10):789-794; J Vasc Surg. 2018; 67:2-77 [place] MYCOPLASMA PNEUMONIAE ANTIBO DY, IGMon 10-15-2019 Mycoplasma pneumo IgM 0.12 <0.91 [place], [place] Comment on above: Reference Range: <=0.90 Negative 0.91-1.09 Equivocal >=1.10 Positive Mycoplasma Ab, IgMon 020 Mycoplasma Ab, IgM 0.12 Normal <0.91 [facility] Comment on above: Result Comment: Reference Range: <=0.90 Negative 0.91-1.09 Equivocal >=1.10 Positive Performed By: #### C DP, CP, LIP, TROPI, LIPRF, GLYHGB #### [facility] [employer] [address] [place] [address] Revenue Accounting Manager: Brandon Anaya MD POC Glucose Fingerstickon Glucose [Mass/Vol] 100 mg/dL 65 - 105 mg/dL [place] Glucose [Mass/Vol] 99 mg/dL 65 - 105 mg/dL [place] Glucose [Mass/Vol] 91 mg/dL 65 - 105 mg/dL [place] Glucose [Mass/Vol] 95 mg/dL 65 - 105 mg/dL [place] RENINon 10-15-2019 Renin Activity 0.1 ng/mL/hr [place] Comment on above: (NOTE) INTERPRETIVE INFORMATION: Renin Activity Adult, Normal sodium diet: Supine ................. 0.2-1.6 ng/mL/hr Upright ................ 0.5-4.0 ng/mL/hr Children, Normal sodium diet, Supine: [place] (1-7 days) ..... 2.0-35.0 ng/mL/hr Cord blood [...] angiotensinogen is decreased. See Compliance Statement D: [email or web address] Performed By: [facility] [address] [place] [id number] Recycling Sorter: Nik Rosas MD, MS Renin Comment NOT REPORTED [facility], [place] Renin Activityon 10-15-2019 Renin Activity 0.1 ng/mL/hr Normal [facility] Comment on above: Result Comment: (NOT [...] angiotensinogen is decreased. See Compliance Statement D: [email or web address] Performed By: [facility] [address] [place] [address] Recycling Sorter: Nik Rosas MD, MS Performed By: #### C DP, CP, LIP, TROPI, LIPRF, GLYHGB #### [place] [place], [place] [phone] Revenue Accounting Manager: Brandon Anaya MD ALDOSTERONEon 10-14-2019 Aldosterone 5 ng/dL [place], [place] Comment on above: (NOTE) INTERPRETIVE INFORMATION: [...] reference intervals for this test in the [employer] Laboratory Test Directory ([employer]). Performed By: [facility] [address] [place] [address] Recycling Sorter: Nik Rosas MD, MS Aldosterone Comment NOT REPORTED [facility] Aldosterone 5.0 ng/dL Normal [facility] Comment on above: Result Comment: (NOT [...] reference intervals for this test in the [employer] Laboratory Test Directory ([employer]). Performed By: [facility] [address] [place] [address] Recycling Sorter: Nik Rosas MD, MS Performed By: #### C DP, CP, LIP, TROPI, LIPRF, GLYHGB #### [place] [address] Revenue Accounting Manager: Brandon Anaya MD Basic Metab w/rfx MGon 10-13 (cont.) Normal [facility] Comment on above: Result Comment: Aver age GFR for 70 or more years old: 75 mL/min/1.73sq m Chronic Kidney Disease: <60 mL/min/1.73sq m Kidney failure: <15 mL/min/1.73sq m eGFR calculated using average adult body mass. Additional eGFR calculator available at: http://www.[employer]/multiple_crcl_2012.htm Performed By: #### C DP, CP, LIP, TROPI, LIPRF, GLYHGB #### [place] [id number] Revenue Accounting Manager: Brandon Anaya MD Anion gap [Moles/Vol] 13 mmol/L Normal 9-17 [facility] Comment on above: Performed By: #### C DP, CP, LIP, TROPI, LIPRF, GLYHGB #### [place] [phone] Revenue Accounting Manager: Brandon Anaya MD Calcium [Mass/Vol] 8.5 mg/dL Low 8.6-10.4 [facility] Comment on above: Performed By: #### C DP, CP, LIP, TROPI, LIPRF, GLYHGB #### [facility] [address] [place] [address] Revenue Accounting Manager: Brandon Anaya MD Chloride [Moles/Vol] 91 mmol/L Low 98-107 [facility] Comment on above: Performed By: #### C DP, CP, LIP, TROPI, LIPRF, GLYHGB #### [facility] [address] [place] [address] Revenue Accounting Manager: Brandon Anaya MD CO2 [Moles/Vol] 26 mmol/L Normal 20-31 [facility] Comment on above: Performed By: #### C DP, CP, LIP, TROPI, LIPRF, GLYHGB #### [address] [address] Revenue Accounting Manager: Brandon Anaya MD Creatinine [Mass/Vol] 0.48 mg/dL Low 0.50-0.90 [facility] Comment on above: Performed By: #### C DP, CP, LIP, TROPI, LIPRF, GLYHGB #### [address] [address] Revenue Accounting Manager: Brandon Anaya MD GFR, Amer >60 Normal >60 [facility] Comment on above: Performed By: #### C DP, CP, LIP, TROPI, LIPRF, GLYHGB #### [address] [address] Revenue Accounting Manager: Brandon Anaya MD GFR,non Amer >60 Normal >60 [facility] Comment on above: Performed By: #### C DP, CP, LIP, TROPI, LIPRF, GLYHGB #### [facility] [employer] [address] [place] [address] Revenue Accounting Manager: Brandon Anaya MD Glucose [Mass/Vol] 104 mg/dL High 70-99 [facility] Comment on above: Performed By: #### C DP, CP, LIP, TROPI, LIPRF, GLYHGB #### [facility] [employer] [address] [place] [address] Revenue Accounting Manager: Brandon Anaya MD Potassium [Moles/Vol] 3.7 mmol/L Normal 3.7-5.3 [facility] Comment on above: Performed By: #### C DP, CP, LIP, TROPI, LIPRF, GLYHGB #### [address] [address] Revenue Accounting Manager: Brandon Anaya MD Sodium [Moles/Vol] 130 mmol/L Low 135-144 [facility] Comment on above: Performed By: #### C DP, CP, LIP, TROPI, LIPRF, GLYHGB #### [address] [address] Revenue Accounting Manager: Brandon Anaya MD Urea nitrogen [Mass/Vol] 19 mg/dL Normal 8-23 [facility] Comment on above: Performed By: #### C DP, CP, LIP, TROPI, LIPRF, GLYHGB #### [address] [address] Revenue Accounting Manager: Brandon Anaya MD BUN/CRE Ratio NOT REPORTED Normal - [facility] Comment on above: Performed By: #### C DP, CP, LIP, TROPI, LIPRF, GLYHGB #### [facility] [employer] [address] [place] [address] Revenue Accounting Manager: Brandon Anaya MD Staging: NOT REPORTED Normal [facility] Comment on above: Performed By: #### C DP, CP, LIP, TROPI, LIPRF, GLYHGB #### [facility] [employer] [address] [place] [address] Revenue Accounting Manager: Brandon Anaya MD Basic Metabolic Panel w/ Ref kervin to MGon 10-14-2019 Anion gap [Moles/Vol] 13 mmol/L 9 - 17 mmol/L [place] Bun/Cre Ratio NOT REPORTED [place] Calcium [Mass/Vol] 8.5 mg/dL Low 8.6 - 10. 4 mg/dL [place] Chloride [Moles/Vol] 91 mmol/L Low 98 - 10 7 mmol/L [place] CO2 [Moles/Vol] 26 mmol/L 20 - 31 mmol/L [place] Creatinine [Mass/Vol] 0.48 mg/dL Low 0.5 - 0.9 mg/dL [place] GFR >60 >60 mL/min [place] GFR Non- >60 >60 mL/min [place] GFR/1.73 sq M predicted among non-blacks MDRD (S/P/Bld) [Vol rate/Area] [place] Comment on above: Average GFR for 70 o r more years old: 75 mL/min/1.73sq m Chronic Kidney Disease: <60 mL/min/1.73sq m Kidney failure: <15 mL/min/1.73sq m eGFR calculated using average adult body mass. Additional eGFR calculator available at: http://www.[employer]/multiple_crcl_2012.htm GFR/1.73 sq M predicted among non-blacks MDRD (S/P/Bld) [Vol rate/Area] NOT REPORTED [place] Glucose [Mass/Vol] 104 mg/dL High 70 - 99 mg/dL [place] Interpretation and review of laboratory results Abnormal [place] Potassium [Moles/Vol] 3.7 mmol/L 3.7 - 5.3 mmol/L [place] Sodium [Moles/Vol] 130 mmol/L Low 135 - 144 mmol/L [place] Urea nitrogen [Mass/Vol] 19 mg/dL 8 - 23 mg/dL [place] CBC auto differentialon 09-25 Atypical Lymphocytes 3 % [place] Atypical Lymphocytes Absolute 0.30 k/uL [place] Basophils (Bld) [#/Vol] 0.00 10*3/uL [place] Basophils/100 WBC (Bld) 0 % 0 - 2 % [place] Differential Type NOT REPORTED [place] Eosinophils (Bld) [#/Vol] 0.10 10*3/uL [place] Eosinophils/100 WBC (Bld) 1 % 1 - 4 % [place] Erythrocyte distribution width (RBC) [Ratio] 14.7 % High 11.8 - 14.4 % [place] Hematocrit (Bld) [Volume fraction] 39.5 % 36.3 - 47.1 % [place] Hemoglobin (Bld) [Mass/Vol] 12.9 g/dL 11.9 - 15.1 g/dL [place] Immature granulocytes (Bld) [#/Vol] 0.10 10*3/uL [place] Immature granulocytes (Bld) [#/Vol] 1 % High 0 [place] Interpretation and review of laboratory results Abnormal [place] Lymphocytes (Bld) [#/Vol] 2.80 10*3/uL [place] Lymphocytes/100 WBC (Bld) 28 % 24 - 44 % [place] MCH (RBC) [Entitic mass] 29.5 pg 25.2 - 33.5 pg [place] MCHC (RBC) [Mass/Vol] 32.7 g/dL 28.4 - 34.8 g/dL [place] MCV (RBC) [Entitic vol] 90.2 fL 82.6 - 102.9 fL [place] Monocytes (Bld) [#/Vol] 0.50 10*3/uL [place] Monocytes/100 WBC (Bld) 5 % 1 - 7 % [place] Morphology Alfredo (Bld) [Interp] ANISOCYTOSIS PRESENT [place] Platelet mean volume (Bld) [Entitic vol] 10.1 fL 8.1 - 13.5 fL [place] Platelets (Bld) [#/Vol] 190 10*3/uL [place] Platelets (Bld) [#/Vol] NOT REPORTED [place] RBC (Bld) [#/Vol] 4.38 10*6/uL 3.95 - 5.1 1 m/uL [place] RBC morphology finding Nom (Bld) NOT REPORTED [place] Segmented neutrophils/100 WBC (Bld) 62 % 36 - 66 % [place] Segs Absolute 6.20 [place] WBC (Bld) [#/Vol] 10.0 10*3/uL [place] WBC (Bld) [#/Vol] 0.0 10*3/uL 0.0 per 10 0 WBC [place] WBC Morphology NOT REPORTED [place] CBC with Diffon 10-14-2019 Abs. Atypical Lymphs 0.30 k/uL Normal [facility] Comment on above: Performed By: #### C DP, CP, LIP, TROPI, LIPRF, GLYHGB #### [facility] [employer] [address] [place], [place] [phone] Revenue Accounting Manager: Brandon Anaya MD Abs. Basophil 0.00 k/uL Normal 0.0-0.2 [facility] Comment on above: Performed By: #### C DP, CP, LIP, TROPI, LIPRF, GLYHGB #### [facility] [employer] [address] [place] [address] [phone] Revenue Accounting Manager: Brandon Anaya MD Abs.Imm.Granulocyte 0.10 k/uL Normal 0.00-0.30 [facility] Comment on above: Performed By: #### C DP, CP, LIP, TROPI, LIPRF, GLYHGB #### [facility] [employer] [address] [place] [address] [phone] Revenue Accounting Manager: Brandon Anaay MD Abs.Neutrophil (Seg) 6.20 k/uL Normal 1.8-7.7 [facility] Comment on above: Performed By: #### C DP, CP, LIP, TROPI, LIPRF, GLYHGB #### [address] [address] Revenue Accounting Manager: Brandon Anaya MD Atypical Lymphs 3 % Normal [facility] Comment on above: Performed By: #### C DP, CP, LIP, TROPI, LIPRF, GLYHGB #### [place] [address] Revenue Accounting Manager: Brandon Anaya MD Basophils/100 WBC (Bld) 0 % Normal 0-2 [facility] Comment on above: Performed By: #### C DP, CP, LIP, TROPI, LIPRF, GLYHGB #### [place] [address] Revenue Accounting Manager: Brandon Anaya MD Eosinophils (Bld) [#/Vol] 0.10 10*3/uL Normal 0.0-0.4 [facility] Comment on above: Performed By: #### C DP, CP, LIP, TROPI, LIPRF, GLYHGB #### [place] [address] Revenue Accounting Manager: Brandon Anaya MD Eosinophils/100 WBC (Bld) 1 % Normal 1-4 [facility] Comment on above: Performed By: #### C DP, CP, LIP, TROPI, LIPRF, GLYHGB #### [place] [address] Revenue Accounting Manager: Brandon Anaya MD Immature granulocytes (Bld) [#/Vol] 1 % High 0 [facility] Comment on above: Performed By: #### C DP, CP, LIP, TROPI, LIPRF, GLYHGB #### [address] [address] Revenue Accounting Manager: Brandon Anaya MD Lymphocytes (Bld) [#/Vol] 2.80 10*3/uL Normal 1.0-4.8 [facility] Comment on above: Performed By: #### C DP, CP, LIP, TROPI, LIPRF, GLYHGB #### [address] [address] Revenue Accounting Manager: Brandon Anaya MD Lymphocytes/100 WBC (Bld) 28 % Normal 24-44 [facility] Comment on above: Performed By: #### C DP, CP, LIP, TROPI, LIPRF, GLYHGB #### [facility] [employer] [address] [place] [phone] Revenue Accounting Manager: Brandon Anaya MD Monocytes (Bld) [#/Vol] 0.50 10*3/uL Normal 0.1-0.8 [facility] Comment on above: Performed By: #### C DP, CP, LIP, TROPI, LIPRF, GLYHGB #### [address] [address] Revenue Accounting Manager: Brandon Anaya MD Monocytes/100 WBC (Bld) 5 % Normal 1-7 [facility] Comment on above: Performed By: #### C DP, CP, LIP, TROPI, LIPRF, GLYHGB #### [address] [address] Revenue Accounting Manager: Brandon Anaya MD Morphology Alfredo (Bld) [Interp] ANISOCYTOSIS PRESENT Normal [facility] Comment on above: Performed By: #### C DP, CP, LIP, TROPI, LIPRF, GLYHGB #### [address] [address] Revenue Accounting Manager: Brandon Anaya MD Neutrophil (Seg) 62 % Normal 36-66 [facility] Comment on above: Performed By: #### C DP, CP, LIP, TROPI, LIPRF, GLYHGB #### [address] [address] Revenue Accounting Manager: Brandon Anaya MD Erythrocyte distribution width (RBC) [Ratio] 14.7 % High 11.8-14.4 [facility] Comment on above: Performed By: #### C DP, CP, LIP, TROPI, LIPRF, GLYHGB #### [address] [address] Revenue Accounting Manager: Brandon Anaya MD Hematocrit (Bld) [Volume fraction] 39.5 % Normal 36.3-47.1 [facility] Comment on above: Performed By: #### C DP, CP, LIP, TROPI, LIPRF, GLYHGB #### [place] [address] Revenue Accounting Manager: Brandon Anaya MD Hemoglobin (Bld) [Mass/Vol] 12.9 g/dL Normal 11.9-15.1 [facility] Comment on above: Performed By: #### C DP, CP, LIP, TROPI, LIPRF, GLYHGB #### [address] [address] Revenue Accounting Manager: Brandon Anaya MD MCH (RBC) [Entitic mass] 29.5 pg Normal 25.2-33.5 [facility] Comment on above: Performed By: #### C DP, CP, LIP, TROPI, LIPRF, GLYHGB #### [address] [address] Revenue Accounting Manager: Brandon Anaya MD MCHC (RBC) [Mass/Vol] 32.7 g/dL Normal 28.4-34.8 [facility] Comment on above: Performed By: #### C DP, CP, LIP, TROPI, LIPRF, GLYHGB #### [address] [address] Revenue Accounting Manager: Brandon Anaya MD MCV (RBC) [Entitic vol] 90.2 fL Normal 82.6-102.9 [facility] Comment on above: Performed By: #### C DP, CP, LIP, TROPI, LIPRF, GLYHGB #### [address] [address] Revenue Accounting Manager: Brandon Anaya MD NRBC Automated 0.0 per 100 WBC Normal 0.0 [facility] Comment on above: Performed By: #### C DP, CP, LIP, TROPI, LIPRF, GLYHGB #### [address] [address] Revenue Accounting Manager: Brandon Anaya MD Platelet mean volume (Bld) [Entitic vol] 10.1 fL Normal 8.1-13.5 [facility] Comment on above: Performed By: #### C DP, CP, LIP, TROPI, LIPRF, GLYHGB #### [place] [address] Revenue Accounting Manager: Brandon Anaya MD Platelets (Bld) [#/Vol] 190 10*3/uL Normal 138-453 [facility] Comment on above: Performed By: #### C DP, CP, LIP, TROPI, LIPRF, GLYHGB #### [address] [address] Revenue Accounting Manager: Brandon Anaya MD RBC (Bld) [#/Vol] 4.38 10*6/uL Normal 3.95-5.11 [facility] Comment on above: Performed By: #### C DP, CP, LIP, TROPI, LIPRF, GLYHGB #### [address] [address] Revenue Accounting Manager: Brandon Anaya MD WBC (Bld) [#/Vol] 10.0 10*3/uL Normal 3.5-11.3 [facility] Comment on above: Performed By: #### C DP, CP, LIP, TROPI, LIPRF, GLYHGB #### [address] [place] [address] Revenue Accounting Manager: Brandon Anaya MD Auto Diff Performed NOT REPORTED Normal [facility] Comment on above: Performed By: #### C DP, CP, LIP, TROPI, LIPRF, GLYHGB #### [facility] [address] [place] [phone] Revenue Accounting Manager: Brandon Anaya MD Platelets (Bld) [#/Vol] NOT REPORTED Normal [facility] Comment on above: Performed By: #### C DP, CP, LIP, TROPI, LIPRF, GLYHGB #### [facility] [address] [place] [phone] Revenue Accounting Manager: Brandon Anaya MD RBC morphology finding Nom (Bld) NOT REPORTED Normal [facility] Comment on above: Performed By: #### C DP, CP, LIP, TROPI, LIPRF, GLYHGB #### [facility] [address] [place] [phone] Revenue Accounting Manager: Brandon Anaya MD WBC Morphology NOT REPORTED Normal [facility] Comment on above: Performed By: #### C DP, CP, LIP, TROPI, LIPRF, GLYHGB #### [facility] [address] [place] [phone] Revenue Accounting Manager: Brandon Anaya MD METANEPHRINES PLASMA FREEon 10-14-2019 Metaneph/Plasma Interp See Note [facility], [place] Comment on above: (NOTE) INTERPRETIVE [...] should be considered. See Compliance Statement B: [employer] Performed By: [facility] [address] [place] [id number] Recycling Sorter: Nik Rosas MD, MS Metanephrine 0.14 nmol/L 0 - 0.49 nmol/L [place], [place] Normetanephrine 0.73 nmol/L 0 - 0.89 nmol/L [facility], [place] Metanephrine, Plasmaon 10-13 Metaneph Interp See Note Normal [facility] Comment on above: Result Comment: (NOT [...] should be considered. See Compliance Statement B: [employer] Performed By: [facility] [address] [place] [id number] Recycling Sorter: Nik Rosas MD, MS Performed By: #### C DP, CP, LIP, TROPI, LIPRF, GLYHGB #### [facility] [place], [place] [phone] Revenue Accounting Manager: Brandon Anaya MD Metanephrine 0.14 nmol/L Normal 0.00-0.49 [facility] Comment on above: Performed By: #### C DP, CP, LIP, TROPI, LIPRF, GLYHGB #### [facility] [place] [address] Revenue Accounting Manager: Brandon Anaya MD Normetanephrine 0.73 nmol/L Normal 0.00-0.89 [facility] Comment on above: Performed By: #### C JUAN GARZA, LIP, TROPI, LIPRF, GLYHGB #### [facility] [employer] [address] [place], [place] [phone] Revenue Accounting Manager: Brandon Anaya MD POC Glucose Fingerstickon Glucose [Mass/Vol] 86 mg/dL 65 - 105 mg/dL [place], [place] Glucose [Mass/Vol] 105 mg/dL 65 - 105 mg/dL [place] Glucose [Mass/Vol] 159 mg/dL High 65 - 105 mg/dL [place] Interpretation and review of laboratory results Abnormal [place] Glucose [Mass/Vol] 113 mg/dL High 65 - 105 mg/dL [place] Interpretation and review of laboratory results Abnormal [place] T. pallidum Abon 10-14-2019 T. pallidum, IgG NONREACTIVE NONREACTIVE [place], [place] Comment on above: T. pallidum antibodies are not detected. There is no serological evidence of infection with T. pallidum (early primary syphilis cannot be excluded). Retest in 2-4 weeks if syphilis is clinically suspect. T.pallidum Ab Screenon 10-13 T.pallidum Ab Screen NONREACTIVE Normal [facility] Comment on above: Result Comment: T. pallidum antibodies are not detected. There is no serological evidence of infection with T. pallidum (early primary syphilis cannot be excluded). Retest in 2-4 weeks if syphilis is clinically suspect. Performed By: #### C DP, CP, LIP, TROPI, LIPRF, GLYHGB #### [facility] [employer] [address] [place], [place] [phone] Revenue Accounting Manager: Brandon Anaya MD AMMONIAon 10-13-2019 Ammonia (P) [Mass/Vol] 28 umol/L 11 - 51 umol/L [place], [place] Ammoniaon 10-13-2019 Ammonia (P) [Mass/Vol] 28 umol/L Normal 11-51 [facility] Comment on above: Performed By: #### C DP, CP, LIP, TROPI, LIPRF, GLYHGB #### [facility] [address] [place] [address] Revenue Accounting Manager: Brandon Anaya MD BLOOD GAS, VENOUSon 10-13-19 20 Andrés Test NOT REPORTED [facility] [employer] [place], [place] aPTT Coag (Bld) [Time] 37.0 s [facility] [employer], [place] Carboxyhemoglobin 1.3 % 0 - 5 % [facility] [employer] [place] Comment on above: Reference Range: Non-Smokers 0-2% Average Smoker 2-4% Heavy Smoker <10% FIO2 ROOM AIR [facility] [employer], [place] HCO3, Venous 28.4 mmol/L 24 - 30 mmol/L [facility] [employer] [place] Interpretation and review of laboratory results Abnormal [facility] [employer] [place] Methemoglobin NOT REPORTED 0 - 1.5 % [facility] [employer] [place] Mode NOT REPORTED [facility] [employer] [place] Negative Base Excess, Noah NOT REPORTED 0 - 2 mmol/L [facility] [employer] [place] NOTIFICATION NOT REPORTED [facility] [employer] [place] NOTIFICATION TIME NOT REPORTED [facility] [employer] [place] O2 Device/Flow/% NOT REPORTED [facility] [employer] [place] Oxygen saturation in Blood 78.1 % 60 - 85 % [facility] [employer] [place] Oxyhemoglobin NOT REPORTED 95 - 98 % [facility] [place] pCO2, Noah 42.6 [facility] [place] pCO2, Noah, Temp Adj NOT REPORTED [facility] [employer] [place], [place] Peep/Cpap NOT REPORTED [facility] [place] pH, Noah 7.439 High [facility] [place] pH, Noah, Temp Adj NOT REPORTED [facility] [place] pO2, Noah 41.1 [facility] [employer] [place] pO2, Noah, Temp Adj NOT REPORTED [facility] [employer] [place], [place] Positive Base Excess, Noah 4.2 mmol/L High 0 - 2 mmol/L [facility] [place] PSV NOT REPORTED [facility] [employer] [place] Pt. Position NOT REPORTED [facility] [employer] [place] Sample Site NOT REPORTED [facility] [employer], [place] Set Rate NOT REPORTED [place], [place] Text for Respiratory NOT REPORTED [facility], [place] Total Hb NOT REPORTED 12 - 16 g/dl [place] Total Rate NOT REPORTED [place] VT NOT REPORTED [place] Basic Metab w/rfx MGon 10-12 Potassium [Moles/Vol] 3.4 mmol/L Low 3.7-5.3 [facility] Comment on above: Performed By: #### C DP, CP, LIP, TROPI, LIPRF, GLYHGB #### [facility] [address] [place] [address] [phone] Revenue Accounting Manager: Brandon Anaya MD (cont.) [facility] Comment on above: Result Comment: Aver age GFR for 70 or more years old: 75 mL/min/1.73sq m Chronic Kidney Disease: <60 mL/min/1.73sq m Kidney failure: <15 mL/min/1.73sq m eGFR calculated using average adult body mass. Additional eGFR calculator available at: http://www.[employer]/multiple_crcl_2012.htm Performed By: #### C DP, CP, LIP, TROPI, LIPRF, GLYHGB #### [facility] [address] [place] [address] [phone] Revenue Accounting Manager: Branodn Anaya MD Anion gap [Moles/Vol] 16 mmol/L Normal 9-17 [facility] Comment on above: Performed By: #### C DP, CP, LIP, TROPI, LIPRF, GLYHGB #### [facility] [address] [place] [address] [phone] Revenue Accounting Manager: Brandon Anaya MD Calcium [Mass/Vol] 9.0 mg/dL Normal 8.6-10.4 [facility] Comment on above: Performed By: #### C DP, CP, LIP, TROPI, LIPRF, GLYHGB #### [facility] [employer] [address] [place] [address] [phone] Revenue Accounting Manager: Brandon Anaya MD Chloride [Moles/Vol] 90 mmol/L Low 98-107 [facility] Comment on above: Performed By: #### C DP, CP, LIP, TROPI, LIPRF, GLYHGB #### [facility] [address] [place] [phone] Revenue Accounting Manager: Brandon Anaya MD CO2 [Moles/Vol] 25 mmol/L Normal 20-31 [facility] Comment on above: Performed By: #### C DP, CP, LIP, TROPI, LIPRF, GLYHGB #### [facility] [address] [place] [phone] Revenue Accounting Manager: Brandon Anaya MD Creatinine [Mass/Vol] 0.47 mg/dL Low 0.50-0.90 [facility] Comment on above: Performed By: #### C DP, CP, LIP, TROPI, LIPRF, GLYHGB #### [facility] [employer] [address] [place] [phone] Revenue Accounting Manager: Brandon Anaya MD GFR, Amer >60 Normal >60 [facility] Comment on above: Performed By: #### C DP, CP, LIP, TROPI, LIPRF, GLYHGB #### [facility] [employer] [address] [place] [phone] Revenue Accounting Manager: Brandon Anaya MD GFR,non Amer >60 Normal >60 [facility] Comment on above: Performed By: #### C DP, CP, LIP, TROPI, LIPRF, GLYHGB #### [facility] [employer] [address] [place] [phone] Revenue Accounting Manager: Brandon Anaya MD Glucose [Mass/Vol] 113 mg/dL High 70-99 [facility] Comment on above: Performed By: #### C DP, CP, LIP, TROPI, LIPRF, GLYHGB #### [facility] [employer] [address] [place] [address] [phone] Revenue Accounting Manager: Brandon Anaya MD Sodium [Moles/Vol] 131 mmol/L Low 135-144 [facility] Comment on above: Performed By: #### C DP, CP, LIP, TROPI, LIPRF, GLYHGB #### [facility] [address] [place], [place] [phone] Revenue Accounting Manager: Brandon Anaya MD Urea nitrogen [Mass/Vol] 16 mg/dL Normal 8- [facility] Comment on above: Performed By: #### C DP, CP, LIP, TROPI, LIPRF, GLYHGB #### [facility] [address] [place] [address] Revenue Accounting Manager: Brandon Anaya MD BUN/CRE Ratio NOT REPORTED Normal - [facility] Comment on above: Performed By: #### C DP, CP, LIP, TROPI, LIPRF, GLYHGB #### [facility] [address] [place], [place] [phone] Revenue Accounting Manager: Brandon Anaya MD Staging: NOT REPORTED Normal [facility] Comment on above: Performed By: #### C DP, CP, LIP, TROPI, LIPRF, GLYHGB #### [facility] [address] [place], [place] [phone] Revenue Accounting Manager: Brandon nAaya MD Basic Metabolic Panel w/ Ref kervin to MGon 10-13-2019 Anion gap [Moles/Vol] 16 mmol/L 9 - 17 mmol/L [place] Bun/Cre Ratio NOT REPORTED [place] Calcium [Mass/Vol] 9.0 mg/dL 8.6 - 10. 4 mg/dL [place] Chloride [Moles/Vol] 90 mmol/L Low 98 - 10 7 mmol/L [place] CO2 [Moles/Vol] 25 mmol/L 20 - 31 mmol/L [place] Creatinine [Mass/Vol] 0.47 mg/dL Low 0.5 - 0.9 mg/dL [place] GFR >60 >60 mL/min [place], [place] GFR Non- >60 >60 mL/min [place] GFR/1.73 sq M predicted among non-blacks MDRD (S/P/Bld) [Vol rate/Area] NOT REPORTED [place] GFR/1.73 sq M predicted among non-blacks MDRD (S/P/Bld) [Vol rate/Area] [place] Comment on above: Average GFR for 70 o r more years old: 75 mL/min/1.73sq m Chronic Kidney Disease: <60 mL/min/1.73sq m Kidney failure: <15 mL/min/1.73sq m eGFR calculated using average adult body mass. Additional eGFR calculator available at: http://www.[employer]/multiple_crcl_2012.htm Glucose [Mass/Vol] 113 mg/dL High 70 - 99 mg/dL [place], [place] Interpretation and review of laboratory results Abnormal [place] Potassium [Moles/Vol] 3.4 mmol/L Low 3.7 - 5.3 mmol/L [place] Sodium [Moles/Vol] 131 mmol/L Low 135 - 144 mmol/L [place] Urea nitrogen [Mass/Vol] 16 mg/dL 8 - 23 mg/dL [place] CBC auto differentialon 09-24 Basophils (Bld) [#/Vol] 0.07 10*3/uL [place] Basophils/100 WBC (Bld) 1 % 0 - 2 % [place] Differential Type NOT REPORTED [place] Eosinophils (Bld) [#/Vol] 10*3/uL [place] Eosinophils/100 WBC (Bld) 0 % Low 1 - 4 % [place] Erythrocyte distribution width (RBC) [Ratio] 15.0 % High 11.8 - 14.4 % [place] Hematocrit (Bld) [Volume fraction] 45.5 % 36.3 - 47.1 % [place] Hemoglobin (Bld) [Mass/Vol] 14.5 g/dL 11.9 - 15.1 g/dL [place] Immature granulocytes (Bld) [#/Vol] 0.14 10*3/uL [place] Immature granulocytes (Bld) [#/Vol] 1 % High 0 [place] Interpretation and review of laboratory results Abnormal [place] Lymphocytes (Bld) [#/Vol] 2.84 10*3/uL [place] Lymphocytes/100 WBC (Bld) 23 % Low 24 - 43 % [place] MCH (RBC) [Entitic mass] 29.8 pg 25.2 - 33.5 pg [place] MCHC (RBC) [Mass/Vol] 31.9 g/dL 28.4 - 34.8 g/dL [place] MCV (RBC) [Entitic vol] 93.4 fL 82.6 - 102.9 fL [place] Monocytes (Bld) [#/Vol] 1.22 10*3/uL High [place] Monocytes/100 WBC (Bld) 10 % 3 - 12 % [place] Platelet mean volume (Bld) [Entitic vol] 10.5 fL 8.1 - 13.5 fL [place] Platelets (Bld) [#/Vol] NOT REPORTED [place] Platelets (Bld) [#/Vol] 210 10*3/uL [place] RBC (Bld) [#/Vol] 4.87 10*6/uL 3.95 - 5.1 1 m/uL [place] RBC morphology finding Nom (Bld) ANISOCYTOSIS PRESENT [place] Segmented neutrophils/100 WBC (Bld) 65 % 36 - 65 % [place] Segs Absolute 8.01 [place] WBC (Bld) [#/Vol] 12.3 10*3/uL High [place] WBC (Bld) [#/Vol] 0.0 10*3/uL 0.0 per 10 0 WBC [place] WBC Morphology NOT REPORTED [place] CBC with Diffon 08-19-2020 Abs. Basophil 0.07 k/uL Normal 0.00-0.20 [facility] Comment on above: Performed By: #### C DP, CP, LIP, TROPI, LIPRF, GLYHGB #### [address] [phone] Revenue Accounting Manager: Brandon Anaya MD Abs.Imm.Granulocyte 0.14 k/uL Normal 0.00-0.30 [facility] Comment on above: Performed By: #### C DP, CP, LIP, TROPI, LIPRF, GLYHGB #### [address] [address] Revenue Accounting Manager: Bradnon Anaya MD Abs.Neutrophil (Seg) 8.01 k/uL Normal 1.50-8.10 [facility] Comment on above: Performed By: #### C DP, CP, LIP, TROPI, LIPRF, GLYHGB #### [address] [address] Revenue Accounting Manager: Brandon Anaya MD Basophils/100 WBC (Bld) 1 % Normal 0-2 [facility] Comment on above: Performed By: #### C DP, CP, LIP, TROPI, LIPRF, GLYHGB #### [address] [address] Revenue Accounting Manager: Brandon Anaya MD Eosinophils (Bld) [#/Vol] 10*3/uL Normal 0.00-0.44 [facility] Comment on above: Performed By: #### C DP, CP, LIP, TROPI, LIPRF, GLYHGB #### [address] [address] Revenue Accounting Manager: Brandon Anaya MD Eosinophils/100 WBC (Bld) 0 % Low 1-4 [facility] Comment on above: Performed By: #### C DP, CP, LIP, TROPI, LIPRF, GLYHGB #### [facility] [employer] [address] [place] [phone] Revenue Accounting Manager: Brandon Anaya MD Erythrocyte distribution width (RBC) [Ratio] 15.0 % High 11.8-14.4 [facility] Comment on above: Performed By: #### C DP, CP, LIP, TROPI, LIPRF, GLYHGB #### [address] [address] Revenue Accounting Manager: Brandon Anaya MD Hematocrit (Bld) [Volume fraction] 45.5 % Normal 36.3-47.1 [facility] Comment on above: Performed By: #### C DP, CP, LIP, TROPI, LIPRF, GLYHGB #### [address] [address] Revenue Accounting Manager: Brandon Anaya MD Hemoglobin (Bld) [Mass/Vol] 14.5 g/dL Normal 11.9-15.1 [facility] Comment on above: Performed By: #### C DP, CP, LIP, TROPI, LIPRF, GLYHGB #### [address] [address] Revenue Accounting Manager: Brandon Anaya MD Immature granulocytes (Bld) [#/Vol] 1 % High 0 [facility] Comment on above: Performed By: #### C DP, CP, LIP, TROPI, LIPRF, GLYHGB #### [address] [address] Revenue Accounting Manager: Brandon Anaya MD Lymphocytes (Bld) [#/Vol] 2.84 10*3/uL Normal 1.10-3.70 [facility] Comment on above: Performed By: #### C DP, CP, LIP, TROPI, LIPRF, GLYHGB #### [address] [address] Revenue Accounting Manager: Brandon Anaya MD Lymphocytes/100 WBC (Bld) 23 % Low 24-43 [facility] Comment on above: Performed By: #### C DP, CP, LIP, TROPI, LIPRF, GLYHGB #### [facility] [employer] [address] [place] [phone] Revenue Accounting Manager: Brandon Anaya MD MCH (RBC) [Entitic mass] 29.8 pg Normal 25.2-33.5 [facility] Comment on above: Performed By: #### C DP, CP, LIP, TROPI, LIPRF, GLYHGB #### [address] [address] Revenue Accounting Manager: Brandon Anaya MD MCHC (RBC) [Mass/Vol] 31.9 g/dL Normal 28.4-34.8 [facility] Comment on above: Performed By: #### C DP, CP, LIP, TROPI, LIPRF, GLYHGB #### [place] [address] Revenue Accounting Manager: Brandon Anaya MD MCV (RBC) [Entitic vol] 93.4 fL Normal 82.6-102.9 [facility] Comment on above: Performed By: #### C DP, CP, LIP, TROPI, LIPRF, GLYHGB #### [place] [address] Revenue Accounting Manager: Brandon Anaya MD Monocytes (Bld) [#/Vol] 1.22 10*3/uL High 0.10-1.20 [facility] Comment on above: Performed By: #### C DP, CP, LIP, TROPI, LIPRF, GLYHGB #### [address] [address] Revenue Accounting Manager: Brandon Anaya MD Monocytes/100 WBC (Bld) 10 % Normal 3-12 [facility] Comment on above: Performed By: #### C DP, CP, LIP, TROPI, LIPRF, GLYHGB #### [address] [address] Revenue Accounting Manager: Brandon Anaya MD Neutrophil (Seg) 65 % Normal 36-65 [facility] Comment on above: Performed By: #### C DP, CP, LIP, TROPI, LIPRF, GLYHGB #### [address] [address] Revenue Accounting Manager: Brandon Anaya MD NRBC Automated 0.0 per 100 WBC Normal 0.0 [facility] Comment on above: Performed By: #### C DP, CP, LIP, TROPI, LIPRF, GLYHGB #### [address] [address] Revenue Accounting Manager: Brandon Anaya MD Platelet mean volume (Bld) [Entitic vol] 10.5 fL Normal 8.1-13.5 [facility] Comment on above: Performed By: #### C DP, CP, LIP, TROPI, LIPRF, GLYHGB #### [address] [address] Revenue Accounting Manager: Brandon Anaya MD Platelets (Bld) [#/Vol] 210 10*3/uL Normal 138-453 [facility] Comment on above: Performed By: #### C DP, CP, LIP, TROPI, LIPRF, GLYHGB #### [address] [address] Revenue Accounting Manager: Brandon Anaya MD RBC (Bld) [#/Vol] 4.87 10*6/uL Normal 3.95-5.11 [facility] Comment on above: Performed By: #### C DP, CP, LIP, TROPI, LIPRF, GLYHGB #### [address] [address] Revenue Accounting Manager: Brandon Anaya MD RBC morphology finding Nom (Bld) ANISOCYTOSIS PRESENT Normal [facility] Comment on above: Performed By: #### C DP, CP, LIP, TROPI, LIPRF, GLYHGB #### [address] [address] Revenue Accounting Manager: Brandon Anaya MD WBC (Bld) [#/Vol] 12.3 10*3/uL High 3.5-11.3 [facility] Comment on above: Performed By: #### C DP, CP, LIP, TROPI, LIPRF, GLYHGB #### [address] [address] Revenue Accounting Manager: Brandon Anaya MD Auto Diff Performed NOT REPORTED Normal [facility] Comment on above: Performed By: #### C DP, CP, LIP, TROPI, LIPRF, GLYHGB #### [address] [address] Revenue Accounting Manager: Brandon Anaya MD Platelets (Bld) [#/Vol] NOT REPORTED Normal [facility] Comment on above: Performed By: #### C DP, CP, LIP, TROPI, LIPRF, GLYHGB #### [address] [address] Revenue Accounting Manager: Brandon Anaya MD WBC Morphology NOT REPORTED Normal [facility] Comment on above: Performed By: #### C DP, CP, LIP, TROPI, LIPRF, GLYHGB #### [address] [address] Revenue Accounting Manager: Brandon Anaya MD Magnesiumon 10-13-2019 Magnesium [Mass/Vol] 2.2 mg/dL Normal 1.6-2.6 [facility] Comment on above: Performed By: #### C DP, CP, LIP, TROPI, LIPRF, GLYHGB #### [address] [address] Revenue Accounting Manager: Brandon Anaya MD Magnesium [Mass/Vol] 2.2 mg/dL 1.6 - 2 .6 mg/dL [place] POC Glucose Fingerstickon Glucose [Mass/Vol] 121 mg/dL High 65 - 105 mg/dL [place] Interpretation and review of laboratory results Abnormal [place] Glucose [Mass/Vol] 100 mg/dL 65 - 105 mg/dL [place] Glucose [Mass/Vol] 104 mg/dL 65 - 105 mg/dL [place] Glucose [Mass/Vol] 123 mg/dL High 65 - 105 mg/dL [place] Interpretation and review of laboratory results Abnormal [place] Venous Blood Gaseson 020 Body Temp. 37.0 Normal [facility] Comment on above: Performed By: #### C DP, CP, LIP, TROPI, LIPRF, GLYHGB #### [address] [phone] Revenue Accounting Manager: Brandon Anaya MD Carboxy Hgb 1.3 % Normal 0-5 [facility] Comment on above: Result Comment: Reference Range: Non-Smokers 0-2% Average Smoker 2-4% Heavy Smoker <10% Performed By: #### C DP, CP, LIP, TROPI, LIPRF, GLYHGB #### [address] [phone] Revenue Accounting Manager: Brandon Anaya MD FIO2 ROOM AIR Normal [facility] Comment on above: Performed By: #### C DP, CP, LIP, TROPI, LIPRF, GLYHGB #### [address] [phone] Revenue Accounting Manager: Brandon Anaya MD HCO3 (Bld) [Moles/Vol] 28.4 mmol/L Normal 24-30 [facility] Comment on above: Performed By: #### C DP, CP, LIP, TROPI, LIPRF, GLYHGB #### [address] [address] Revenue Accounting Manager: Brandon Anaya MD Oxygen (Bld) [Partial pressure] 41.1 mm[Hg] Normal 30-50 [facility] Comment on above: Performed By: #### C DP, CP, LIP, TROPI, LIPRF, GLYHGB #### [address] [address] Revenue Accounting Manager: Brandon Anaya MD Oxygen saturation in Blood 78.1 % Normal 60.0-85.0 [facility] Comment on above: Performed By: #### C DP, CP, LIP, TROPI, LIPRF, GLYHGB #### [address] [address] Revenue Accounting Manager: Brandon Anaya MD pCO2 42.6 Normal 39-55 [facility] Comment on above: Performed By: #### C DP, CP, LIP, TROPI, LIPRF, GLYHGB #### [address] [address] Revenue Accounting Manager: Brandon Aanya MD pH (Bld) 7.439 [pH] High 7.320-7.420 [facility] Comment on above: Performed By: #### C DP, CP, LIP, TROPI, LIPRF, GLYHGB #### [address] [address] Revenue Accounting Manager: Brandon Anaya MD Positive Base Excess 4.2 mmol/L High 0.0-2.0 [facility] Comment on above: Performed By: #### C DP, CP, LIP, TROPI, LIPRF, GLYHGB #### [address] [address] Revenue Accounting Manager: Brandon Anaya MD Andrés Test NOT REPORTED Normal [facility] Comment on above: Performed By: #### C DP, CP, LIP, TROPI, LIPRF, GLYHGB #### [address] [address] Revenue Accounting Manager: Brandon Anaya MD Methemoglobin NOT REPORTED Normal 0.0-1.5 [facility] Comment on above: Performed By: #### C DP, CP, LIP, TROPI, LIPRF, GLYHGB #### [facility] [address] [place] [phone] Revenue Accounting Manager: Brandon Anaya MD Mode NOT REPORTED Normal [facility] Comment on above: Performed By: #### C DP, CP, LIP, TROPI, LIPRF, GLYHGB #### [address] [address] Revenue Accounting Manager: Brandon Anaya MD Negative Base Excess NOT REPORTED Normal 0.0-2.0 [facility] Comment on above: Performed By: #### C DP, CP, LIP, TROPI, LIPRF, GLYHGB #### [address] [address] Revenue Accounting Manager: Brandon Anaya MD Notification Time NOT REPORTED Normal [facility] Comment on above: Performed By: #### C DP, CP, LIP, TROPI, LIPRF, GLYHGB #### [address] [address] Revenue Accounting Manager: Brandon Anaya MD Notification: NOT REPORTED Normal [facility] Comment on above: Performed By: #### C DP, CP, LIP, TROPI, LIPRF, GLYHGB #### [address] [address] Revenue Accounting Manager: Brandon Anaya MD O2 Device/Flow/% NOT REPORTED Normal [facility] Comment on above: Performed By: #### C DP, CP, LIP, TROPI, LIPRF, GLYHGB #### [address] [address] Revenue Accounting Manager: Brandon Anaya MD Oxyhemoglobin NOT REPORTED Normal 95.0-98.0 [facility] Comment on above: Performed By: #### C DP, CP, LIP, TROPI, LIPRF, GLYHGB #### [address] [address] Revenue Accounting Manager: Brandon Anaya MD Pco2 Adj'd for Temp. NOT REPORTED Normal 39-55 Me [facility] [place] Comment on above: Performed By: #### C DP, CP, LIP, TROPI, LIPRF, GLYHGB #### [address] [address] Revenue Accounting Manager: Brandon Anaya MD PEEP/CPAP NOT REPORTED Normal [facility] Comment on above: Performed By: #### C DP, CP, LIP, TROPI, LIPRF, GLYHGB #### [address] [address] Revenue Accounting Manager: Brandon Anaya MD pH Adjst'd for Temp. NOT REPORTED Normal 7.320-7.420 M [facility] Comment on above: Performed By: #### C DP, CP, LIP, TROPI, LIPRF, GLYHGB #### [address] [address] Revenue Accounting Manager: Brandon Anaya MD pO2 Adj'd for Temp. NOT REPORTED Normal 30-50 [facility] Comment on above: Performed By: #### C DP, CP, LIP, TROPI, LIPRF, GLYHGB #### [address] [address] Revenue Accounting Manager: Brandon Anaya MD PSV NOT REPORTED Normal [facility] Comment on above: Performed By: #### C DP, CP, LIP, TROPI, LIPRF, GLYHGB #### [address] [place] [address] Revenue Accounting Manager: Brandon Anaya MD Pt. Position NOT REPORTED Normal [facility] Comment on above: Performed By: #### C DP, CP, LIP, TROPI, LIPRF, GLYHGB #### [address] [address] Revenue Accounting Manager: Brandon Anaya MD Set Rate NOT REPORTED Normal [facility] Comment on above: Performed By: #### C DP, CP, LIP, TROPI, LIPRF, GLYHGB #### [address] [address] Revenue Accounting Manager: Brandon Anaya MD Site Drawn NOT REPORTED Normal [facility] Comment on above: Performed By: #### C DP, CP, LIP, TROPI, LIPRF, GLYHGB #### [address] [address] Revenue Accounting Manager: Brandon Anaya MD Text for Respiratory NOT REPORTED Normal [facility] Comment on above: Performed By: #### C DP, CP, LIP, TROPI, LIPRF, GLYHGB #### [address] [address] Revenue Accounting Manager: Brandon Anaya MD Total Hb NOT REPORTED Normal 12.0-16.0 [facility] Comment on above: Performed By: #### C DP, CP, LIP, TROPI, LIPRF, GLYHGB #### [facility] [employer] [address] [place] [address] Revenue Accounting Manager: Brandon Anaya MD Total Rate NOT REPORTED Normal [facility] Comment on above: Performed By: #### C DP, CP, LIP, TROPI, LIPRF, GLYHGB #### [facility] [employer] [address] [place] [address] Revenue Accounting Manager: Brandon Anaya MD VT NOT REPORTED Normal [facility] Comment on above: Performed By: #### C DP, CP, LIP, TROPI, LIPRF, GLYHGB #### [facility] [address] [place] [address] Revenue Accounting Manager: Brandon [facility] Comment: NOT REPORTED Normal [facility] Comment on above: Performed By: #### C DP, CP, LIP, TROPI, LIPRF, GLYHGB #### [address] [address] Revenue Accounting Manager: Brandon Anaya MD Basic Metab w/rfx [facility] 10-11 Potassium [Moles/Vol] 3.3 mmol/L Low 3.7-5.3 [facility] Comment on above: Performed By: #### C DP, CP, LIP, TROPI, LIPRF, GLYHGB #### [address] [address] Revenue Accounting Manager: Brandon Anaya MD (cont.) Normal [facility] Comment on above: Result Comment: Aver age GFR for 70 or more years old: 75 mL/min/1.73sq m Chronic Kidney Disease: <60 mL/min/1.73sq m Kidney failure: <15 mL/min/1.73sq m eGFR calculated using average adult body mass. Additional eGFR calculator available at: http://www.[employer]/multiple_crcl_2011.htm Performed By: #### C DP, CP, LIP, TROPI, LIPRF, GLYHGB #### [address] [address] Revenue Accounting Manager: Brandon Anaya MD Anion gap [Moles/Vol] 12 mmol/L Normal 9-17 [facility] Comment on above: Performed By: #### C DP, CP, LIP, TROPI, LIPRF, GLYHGB #### [address] [address] Revenue Accounting Manager: Brandon Anaya MD Calcium [Mass/Vol] 8.6 mg/dL Normal 8.6-10.4 [facility] Comment on above: Performed By: #### C DP, CP, LIP, TROPI, LIPRF, GLYHGB #### [address] [address] Revenue Accounting Manager: Brandon Anaya MD Chloride [Moles/Vol] 94 mmol/L Low 98-107 [facility] Comment on above: Performed By: #### C DP, CP, LIP, TROPI, LIPRF, GLYHGB #### [address] [address] Revenue Accounting Manager: Brandon Anaya MD CO2 [Moles/Vol] 26 mmol/L Normal 20-31 [facility] Comment on above: Performed By: #### C DP, CP, LIP, TROPI, LIPRF, GLYHGB #### [address] [address] Revenue Accounting Manager: Brandon Anaya MD Creatinine [Mass/Vol] 0.46 mg/dL Low 0.50-0.90 [facility] Comment on above: Performed By: #### C DP, CP, LIP, TROPI, LIPRF, GLYHGB #### [address] [address] Revenue Accounting Manager: Brandon Anaya MD GFR, Amer >60 Normal >60 [facility] Comment on above: Performed By: #### C DP, CP, LIP, TROPI, LIPRF, GLYHGB #### [address] [address] Revenue Accounting Manager: Brandon Anaya MD GFR,non Amer >60 Normal >60 [facility] Comment on above: Performed By: #### C DP, CP, LIP, TROPI, LIPRF, GLYHGB #### [facility] [employer] [address] [place] [address] [place] [address] Revenue Accounting Manager: Brandon Anaya MD Glucose [Mass/Vol] 136 mg/dL High 70-99 [facility] Comment on above: Performed By: #### C DP, CP, LIP, TROPI, LIPRF, GLYHGB #### [address] [address] Revenue Accounting Manager: Brandon Anaya MD Sodium [Moles/Vol] 132 mmol/L Low 135-144 [facility] Comment on above: Performed By: #### C DP, CP, LIP, TROPI, LIPRF, GLYHGB #### [address] [address] Revenue Accounting Manager: Brandon Anaya MD Urea nitrogen [Mass/Vol] 16 mg/dL Normal 8- [facility] Comment on above: Performed By: #### C DP, CP, LIP, TROPI, LIPRF, GLYHGB #### [address] [address] Revenue Accounting Manager: Brandon Anaya MD BUN/CRE Ratio NOT REPORTED Normal 11-13 [facility] Comment on above: Performed By: #### C DP, CP, LIP, TROPI, LIPRF, GLYHGB #### [facility] [employer] [address] [place] [address] Revenue Accounting Manager: Brandon Anaya MD Staging: NOT REPORTED Normal [facility] Comment on above: Performed By: #### C DP, CP, LIP, TROPI, LIPRF, GLYHGB #### [facility] [employer] [address] [place] [address] Revenue Accounting Manager: Brandon Anaya MD Basic Metabolic Panel w/ Ref kervin to MGon 10-12-2019 Anion gap [Moles/Vol] 12 mmol/L 9 - 17 mmol/L [place] Bun/Cre Ratio NOT REPORTED [place] Calcium [Mass/Vol] 8.6 mg/dL 8.6 - 10. 4 mg/dL [place] Chloride [Moles/Vol] 94 mmol/L Low 98 - 10 7 mmol/L [place] CO2 [Moles/Vol] 26 mmol/L 20 - 31 mmol/L [place] Creatinine [Mass/Vol] 0.46 mg/dL Low 0.5 - 0.9 mg/dL [place] GFR >60 >60 mL/min [place] GFR Non- >60 >60 mL/min [place] GFR/1.73 sq M predicted among non-blacks MDRD (S/P/Bld) [Vol rate/Area] [place] Comment on above: Average GFR for 70 o r more years old: 75 mL/min/1.73sq m Chronic Kidney Disease: <60 mL/min/1.73sq m Kidney failure: <15 mL/min/1.73sq m eGFR calculated using average adult body mass. Additional eGFR calculator available at: http://www.[employer]/multiple_crcl_2012.htm GFR/1.73 sq M predicted among non-blacks MDRD (S/P/Bld) [Vol rate/Area] NOT REPORTED [place] Glucose [Mass/Vol] 136 mg/dL High 70 - 99 mg/dL [place] Interpretation and review of laboratory results Abnormal [place] Potassium [Moles/Vol] 3.3 mmol/L Low 3.7 - 5.3 mmol/L [place] Sodium [Moles/Vol] 132 mmol/L Low 135 - 144 mmol/L [place] Urea nitrogen [Mass/Vol] 16 mg/dL 8 - 23 mg/dL [place] CBC auto differentialon 09-24 Basophils (Bld) [#/Vol] 0.04 10*3/uL [place] Basophils/100 WBC (Bld) 0 % 0 - 2 % [place] Differential Type NOT REPORTED [place] Eosinophils (Bld) [#/Vol] 10*3/uL [place] Eosinophils/100 WBC (Bld) 0 % Low 1 - 4 % [place] Erythrocyte distribution width (RBC) [Ratio] 14.7 % High 11.8 - 14.4 % [place] Hematocrit (Bld) [Volume fraction] 40.5 % 36.3 - 47.1 % [place] Hemoglobin (Bld) [Mass/Vol] 12.7 g/dL 11.9 - 15.1 g/dL [place] Immature granulocytes (Bld) [#/Vol] 0.11 10*3/uL [place] Immature granulocytes (Bld) [#/Vol] 1 % High 0 [place] Interpretation and review of laboratory results Abnormal [place] Lymphocytes (Bld) [#/Vol] 1.50 10*3/uL [place] Lymphocytes/100 WBC (Bld) 12 % Low 24 - 43 % [place] MCH (RBC) [Entitic mass] 29.4 pg 25.2 - 33.5 pg [place] MCHC (RBC) [Mass/Vol] 31.4 g/dL 28.4 - 34.8 g/dL [place] MCV (RBC) [Entitic vol] 93.8 fL 82.6 - 102.9 fL [place] Monocytes (Bld) [#/Vol] 0.87 10*3/uL [place] Monocytes/100 WBC (Bld) 7 % 3 - 12 % [place] Platelet mean volume (Bld) [Entitic vol] 10.7 fL 8.1 - 13.5 fL [place] Platelets (Bld) [#/Vol] 196 10*3/uL [place] Platelets (Bld) [#/Vol] NOT REPORTED [place] RBC (Bld) [#/Vol] 4.32 10*6/uL 3.95 - 5.1 1 m/uL [place] RBC morphology finding Nom (Bld) ANISOCYTOSIS PRESENT [place] Segmented neutrophils/100 WBC (Bld) 79 % High 36 - 65 % [place] Segs Absolute 9.64 High [place] WBC (Bld) [#/Vol] 12.2 10*3/uL [place] WBC (Bld) [#/Vol] 0.0 10*3/uL 0.0 per 10 0 WBC [place] WBC Morphology NOT REPORTED [place] CBC with Diffon 10-12-2019 Abs. Basophil 0.04 k/uL Normal 0.00-0.20 [facility] Comment on above: Performed By: #### C DP, CP, LIP, TROPI, LIPRF, GLYHGB #### [place] [address] Revenue Accounting Manager: Brandon Anaya MD Abs.Imm.Granulocyte 0.11 k/uL Normal 0.00-0.30 [facility] Comment on above: Performed By: #### C DP, CP, LIP, TROPI, LIPRF, GLYHGB #### [facility] [employer] [address] [place] [address] Revenue Accounting Manager: Brandon Anaya MD Abs.Neutrophil (Seg) 9.64 k/uL High 1.50-8.10 [facility] Comment on above: Performed By: #### C DP, CP, LIP, TROPI, LIPRF, GLYHGB #### [facility] [employer] [address] [place] [address] Revenue Accounting Manager: Brandon Anaya MD Basophils/100 WBC (Bld) 0 % Normal 0-2 [facility] Comment on above: Performed By: #### C DP, CP, LIP, TROPI, LIPRF, GLYHGB #### [address] [address] Revenue Accounting Manager: Brandon Anaya MD Eosinophils (Bld) [#/Vol] 10*3/uL Normal 0.00-0.44 [facility] Comment on above: Performed By: #### C DP, CP, LIP, TROPI, LIPRF, GLYHGB #### [facility] [employer] [address] [place] [address] Revenue Accounting Manager: Brandon Anaya MD Eosinophils/100 WBC (Bld) 0 % Low 1-4 [facility] Comment on above: Performed By: #### C DP, CP, LIP, TROPI, LIPRF, GLYHGB #### [address] [address] Revenue Accounting Manager: Brandon Anaya MD Erythrocyte distribution width (RBC) [Ratio] 14.7 % High 11.8-14.4 [facility] Comment on above: Performed By: #### C DP, CP, LIP, TROPI, LIPRF, GLYHGB #### [facility] [employer] [address] [place] [address] Revenue Accounting Manager: Brandon Anaya MD Hematocrit (Bld) [Volume fraction] 40.5 % Normal 36.3-47.1 [facility] Comment on above: Performed By: #### C DP, CP, LIP, TROPI, LIPRF, GLYHGB #### [address] [address] Revenue Accounting Manager: Brandon Anaya MD Hemoglobin (Bld) [Mass/Vol] 12.7 g/dL Normal 11.9-15.1 [facility] Comment on above: Performed By: #### C DP, CP, LIP, TROPI, LIPRF, GLYHGB #### [facility] [employer] [address] [place] [phone] Revenue Accounting Manager: Brandon Anaya MD Immature granulocytes (Bld) [#/Vol] 1 % High 0 [facility] Comment on above: Performed By: #### C DP, CP, LIP, TROPI, LIPRF, GLYHGB #### [facility] [employer] [address] [place] [address] Revenue Accounting Manager: Brandon Anaya MD Lymphocytes (Bld) [#/Vol] 1.50 10*3/uL Normal 1.10-3.70 [facility] Comment on above: Performed By: #### C DP, CP, LIP, TROPI, LIPRF, GLYHGB #### [address] [address] Revenue Accounting Manager: Brandon Anaya MD Lymphocytes/100 WBC (Bld) 12 % Low 24-43 [facility] Comment on above: Performed By: #### C DP, CP, LIP, TROPI, LIPRF, GLYHGB #### [address] [address] Revenue Accounting Manager: Brandon Anaya MD MCH (RBC) [Entitic mass] 29.4 pg Normal 25.2-33.5 [facility] Comment on above: Performed By: #### C DP, CP, LIP, TROPI, LIPRF, GLYHGB #### [address] [address] Revenue Accounting Manager: Brandon Anaya MD MCHC (RBC) [Mass/Vol] 31.4 g/dL Normal 28.4-34.8 [facility] Comment on above: Performed By: #### C DP, CP, LIP, TROPI, LIPRF, GLYHGB #### [address] [address] Revenue Accounting Manager: Brandon Anaya MD MCV (RBC) [Entitic vol] 93.8 fL Normal 82.6-102.9 [facility] Comment on above: Performed By: #### C DP, CP, LIP, TROPI, LIPRF, GLYHGB #### [address] [address] Revenue Accounting Manager: Brandon Anaya MD Monocytes (Bld) [#/Vol] 0.87 10*3/uL Normal 0.10-1.20 [facility] Comment on above: Performed By: #### C DP, CP, LIP, TROPI, LIPRF, GLYHGB #### [address] [address] Revenue Accounting Manager: Brandon Anaya MD Monocytes/100 WBC (Bld) 7 % Normal 3-12 [facility] Comment on above: Performed By: #### C DP, CP, LIP, TROPI, LIPRF, GLYHGB #### [address] [address] Revenue Accounting Manager: Brandon Anaya MD Neutrophil (Seg) 79 % High 36-65 [facility] Comment on above: Performed By: #### C DP, CP, LIP, TROPI, LIPRF, GLYHGB #### [address] [address] Revenue Accounting Manager: Brandon Anaya MD NRBC Automated 0.0 per 100 WBC Normal 0.0 [facility] Comment on above: Performed By: #### C DP, CP, LIP, TROPI, LIPRF, GLYHGB #### [address] [address] Revenue Accounting Manager: Brandon Anaya MD Platelet mean volume (Bld) [Entitic vol] 10.7 fL Normal 8.1-13.5 [facility] Comment on above: Performed By: #### C DP, CP, LIP, TROPI, LIPRF, GLYHGB #### [address] [address] Revenue Accounting Manager: Brandon Anaya MD Platelets (Bld) [#/Vol] 196 10*3/uL Normal 138-453 [facility] Comment on above: Performed By: #### C DP, CP, LIP, TROPI, LIPRF, GLYHGB #### [address] [address] Revenue Accounting Manager: Brandon Anaya MD RBC (Bld) [#/Vol] 4.32 10*6/uL Normal 3.95-5.11 [facility] Comment on above: Performed By: #### C DP, CP, LIP, TROPI, LIPRF, GLYHGB #### [address] [address] Revenue Accounting Manager: Brandon Anaya MD RBC morphology finding Nom (Bld) ANISOCYTOSIS PRESENT Normal [facility] Comment on above: Performed By: #### C DP, CP, LIP, TROPI, LIPRF, GLYHGB #### [address] [address] Revenue Accounting Manager: Brandon Anaya MD WBC (Bld) [#/Vol] 12.2 10*3/uL High 3.5-11.3 [facility] Comment on above: Performed By: #### C DP, CP, LIP, TROPI, LIPRF, GLYHGB #### [address] [address] Revenue Accounting Manager: Brandon Anaya MD Auto Diff Performed NOT REPORTED Normal [facility] Comment on above: Performed By: #### C DP, CP, LIP, TROPI, LIPRF, GLYHGB #### [address] [address] Revenue Accounting Manager: Brandon Anaya MD Platelets (Bld) [#/Vol] NOT REPORTED Normal [facility] Comment on above: Performed By: #### C DP, CP, LIP, TROPI, LIPRF, GLYHGB #### [address] [address] Revenue Accounting Manager: Brandon Anaya MD WBC Morphology NOT REPORTED Normal [facility] Comment on above: Performed By: #### C DP, CP, LIP, TROPI, LIPRF, GLYHGB #### [facility] [employer] [address] [place] [address] Revenue Accounting Manager: Brandon Anaya MD Magnesiumon 10-12-2019 Magnesium [Mass/Vol] 2.2 mg/dL Normal 1.6-2.6 [facility] Comment on above: Performed By: #### C DP, CP, LIP, TROPI, LIPRF, GLYHGB #### [facility] [address] [place] [address] Revenue Accounting Manager: Brandon Anaya MD Magnesium [Mass/Vol] 2.2 mg/dL 1.6 - 2 .6 mg/dL [place] POC Glucose Fingerstickon Glucose [Mass/Vol] 117 mg/dL High 65 - 105 mg/dL [place] Interpretation and review of laboratory results Abnormal [place] Glucose [Mass/Vol] 115 mg/dL High 65 - 105 mg/dL [place] Interpretation and review of laboratory results Abnormal [place] Glucose [Mass/Vol] 123 mg/dL High 65 - 105 mg/dL [place] Interpretation and review of laboratory results Abnormal [place] Glucose [Mass/Vol] 117 mg/dL High 65 - 105 mg/dL [place] Interpretation and review of laboratory results Abnormal [place] URINALYSIS WITH MICROSCOPICo n 10-12-2019 Amorphous, UA NOT REPORTED None [place] Bacteria, UA NOT REPORTED None [place] Bilirubin Urine Negative NEGATIVE [place] Casts UA 0 TO 2 HYALINE Refer ence range defined for non-centrifuged specimen. [place] Color, UA YELLOW YELLOW [place] Crystals, UA NOT REPORTED None /HPF [place] Epithelial Cells UA 2 TO 5 [place] Glucose, Ur Negative NEGATIVE [place] Interpretation and review of laboratory results Abnormal [place] Ketones Ql (U) SMALL Abnormal NEGATIVE [place] Leukocyte esterase Test strip Ql (U) Negative NEGATIVE [place] Mucus, UA NOT REPORTED None [place] Nitrite, Urine Negative NEGATIVE [place] Other Observations UA NOT REPORTED NOT REQ. M [place] pH, UA 8.5 High [place] Protein (U) [Mass/Vol] Negative NEGATIVE [place] RBC (U) [#/Vol] TOO NUMEROUS TO COUNT [place] Comment on above: Reference range defi nya for non-centrifuged specimen. Renal Epithelial, UA NOT REPORTED 0 /HPF [place] Specific [place], UA 1.011 [place] Trichomonas, UA NOT REPORTED None [place] Turbidity UA TURBID Abnormal CLEAR [place] Urine Hgb Negative NEGATIVE [place] Urobilinogen, Urine Normal Normal [place] WBC, UA 0 TO 2 [place] Yeast, UA NOT REPORTED None [place] Urinalysis w/ Microon 2019 ----- Normal [facility] Comment on above: Performed By: #### C DP, CP, LIP, TROPI, LIPRF, GLYHGB #### [facility] [address] [place] [address] Revenue Accounting Manager: Brandon Anaya MD Acetoacetic Acid,Ur SMALL Abnormal NEG [facility] Comment on above: Performed By: #### C DP, CP, LIP, TROPI, LIPRF, GLYHGB #### [facility] [employer] [address] [place] [address] Revenue Accounting Manager: Brandon Anaya MD Bilirubin, SemiQt,Ur Negative Normal NEG [facility] Comment on above: Performed By: #### C DP, CP, LIP, TROPI, LIPRF, GLYHGB #### [facility] [employer] [address] [place] [address] Revenue Accounting Manager: Brandon Anaya MD Casts LM.LPF (Urine sed) [#/Area] 0 TO 2 HYALINE Normal 0-8 [facility] Comment on above: Result Comment: Refe rence range defined for non-centrifuged specimen. Performed By: #### C DP, CP, LIP, TROPI, LIPRF, GLYHGB #### [address] [address] Revenue Accounting Manager: Brandon Anaya MD Color (U) YELLOW Normal YEL [facility] Comment on above: Performed By: #### C DP, CP, LIP, TROPI, LIPRF, GLYHGB #### [address] [address] Revenue Accounting Manager: Brandon Anaya MD Epithelial cells LM.HPF (Urine sed) [#/Area] 2 TO 5 Normal 0-5 [facility] Comment on above: Performed By: #### C DP, CP, LIP, TROPI, LIPRF, GLYHGB #### [address] [address] Revenue Accounting Manager: Brandon Anaya MD Glucose Ql (U) Negative Normal NEG [facility] Comment on above: Performed By: #### C DP, CP, LIP, TROPI, LIPRF, GLYHGB #### [address] [address] Revenue Accounting Manager: Brandon Anaya MD Hemoglobin, Ur Negative Normal NEG [facility] Comment on above: Performed By: #### C DP, CP, LIP, TROPI, LIPRF, GLYHGB #### [address] [address] Revenue Accounting Manager: Brandon Anaya MD Leukocyte esterase Test strip Ql (U) Negative Normal NEG [facility] Comment on above: Performed By: #### C DP, CP, LIP, TROPI, LIPRF, GLYHGB #### [facility] [employer] [address] [place] [address] Revenue Accounting Manager: Brandon Anaya MD Nitrite,Ur Negative Normal NEG [facility] Comment on above: Performed By: #### C DP, CP, LIP, TROPI, LIPRF, GLYHGB #### [facility] [employer] [address] [place] [address] Revenue Accounting Manager: Brandon Anaya MD pH (U) 8.5 [pH] High 5.0-8.0 [facility] Comment on above: Performed By: #### C DP, CP, LIP, TROPI, LIPRF, GLYHGB #### [address] [address] Revenue Accounting Manager: Brandon Anaya MD Protein Ql (U) Negative Normal NEG [facility] Comment on above: Performed By: #### C DP, CP, LIP, TROPI, LIPRF, GLYHGB #### [address] [address] Revenue Accounting Manager: Brandon Anaya MD RBC (U) [#/Vol] TOO NUMEROUS TO COUNT Normal 0-4 [facility] Comment on above: Result Comment: Refe rence range defined for non-centrifuged specimen. Performed By: #### C DP, CP, LIP, TROPI, LIPRF, GLYHGB #### [address] [address] Revenue Accounting Manager: Brandon Anaya MD Specific gravity (U) [Rel density] 1.011 Normal 1.005-1.030 [facility] Comment on above: Performed By: #### C DP, CP, LIP, TROPI, LIPRF, GLYHGB #### [facility] [employer] [address] [place] [address] Revenue Accounting Manager: Brandon Anaya MD Turbidity TURBID Abnormal CLEAR [facility] Comment on above: Performed By: #### C DP, CP, LIP, TROPI, LIPRF, GLYHGB #### [facility] [employer] [address] [place] [address] Revenue Accounting Manager: Brandon Anaya MD Urobilinogen,Ur Normal Normal NORM [facility] Comment on above: Performed By: #### C DP, CP, LIP, TROPI, LIPRF, GLYHGB #### [facility] [employer] [address] [place] [phone] Revenue Accounting Manager: Brandon Anaya MD WBC (U) [#/Vol] 0 TO 2 Normal 0-5 [facility] Comment on above: Performed By: #### C DP, CP, LIP, TROPI, LIPRF, GLYHGB #### [facility] [employer] [address] [place] [phone] Revenue Accounting Manager: Brandon Anaya MD Amorphous sediment LM Ql (Urine sed) NOT REPORTED Normal [facility] Comment on above: Performed By: #### C DP, CP, LIP, TROPI, LIPRF, GLYHGB #### [address] [address] Revenue Accounting Manager: Brandon Anaya MD Bacteria LM.HPF (Urine sed) [#/Area] NOT REPORTED Normal NONE [facility] Comment on above: Performed By: #### C DP, CP, LIP, TROPI, LIPRF, GLYHGB #### [facility] [employer] [address] [place] [phone] Revenue Accounting Manager: Brandon Anaya MD Crystals LM Nom (Urine sed) NOT REPORTED Normal [facility] Comment on above: Performed By: #### C DP, CP, LIP, TROPI, LIPRF, GLYHGB #### [facility] [employer] [address] [place] [phone] Revenue Accounting Manager: Brandon Anaya MD Epithelial, Renal NOT REPORTED Normal 0 [facility] Comment on above: Performed By: #### C DP, CP, LIP, TROPI, LIPRF, GLYHGB #### [facility] [employer] [address] [place] [phone] Revenue Accounting Manager: Brandon Anaya MD Mucus Strands NOT REPORTED Normal NONE [facility] Comment on above: Performed By: #### C DP, CP, LIP, TROPI, LIPRF, GLYHGB #### [facility] [address] [place] [address] Revenue Accounting Manager: Brandon Anaya MD Other Observations NOT REPORTED Normal NREQ [facility] Comment on above: Performed By: #### C DP, CP, LIP, TROPI, LIPRF, GLYHGB #### [facility] [place] [address] Revenue Accounting Manager: Brandon Anaya MD Trichomonas NOT REPORTED Normal NONE [facility] Comment on above: Performed By: #### C DP, CP, LIP, TROPI, LIPRF, GLYHGB #### [facility] [address] [place] [address] Revenue Accounting Manager: Brandon Anaya MD Yeast LM Ql (Urine sed) NOT REPORTED Normal [facility] Comment on above: Performed By: #### C DP, CP, LIP, TROPI, LIPRF, GLYHGB #### [facility] [employer] [facility] [place] [address] Revenue Accounting Manager: Brandon Anaya MD RENAL ARTERIAL DUPLEX COM PLETEon 10-12-2019 [facility]ascular Renal Procedure Patient Name ALEYDA Date of Study 10/12/2019 ZACHARY Date of 1945 Gender Female Age 74 year(s) Race Room Number 2015 Corporate ID [id number] # Patient Acct [id number] # MR # [id number] Taxonomy Teacher Celena Juarez, JACEK, RDMS Interpreting Jamison Galo [...] The average kidney length is 10.75 cm. [facility]- [place], [place], Mhpn Incoming Cardio Results From [facility] - 10/12/2019 7:54 PM EDT [facility] Vascular Renal Procedure Patient Name ALEYDA Date of Study 10/12/2019 ZACHARY Date of 1945 Gender Female Age 74 year(s) Race Room Number 2015 Corporate ID [id number] # Patient Acct [id number] # MR # [id number] Taxonomy Teacher Celena Juarez RVT, RDMS Interpreting Jamison Galo [...] The average kidney length is 10.75 cm. [facility]- [place], [place] XR CHEST PORTABLEon 10-12-19 [...] Argentina Guzmán MD 10/11/19 Final result Normal [facility] Basic Metab w/rfx MGon 10-10 (cont.) Normal [facility] Comment on above: Result Comment: Aver age GFR for 70 or more years old: 75 mL/min/1.73sq m Chronic Kidney Disease: <60 mL/min/1.73sq m Kidney failure: <15 mL/min/1.73sq m eGFR calculated using average adult body mass. Additional eGFR calculator available at: http://www.[employer]/multiple_crcl_2012.htm Performed By: #### C DP, CP, LIP, TROPI, LIPRF, GLYHGB #### [facility] [address] [place] [address] Revenue Accounting Manager: Brandon Anaya MD Anion gap [Moles/Vol] 15 mmol/L Normal - [facility] Comment on above: Performed By: #### C DP, CP, LIP, TROPI, LIPRF, GLYHGB #### [employer] [address] [place] [address] Revenue Accounting Manager: Brandon Anaya MD Calcium [Mass/Vol] 9.2 mg/dL Normal 8.6-10.4 [facility] Comment on above: Performed By: #### C DP, CP, LIP, TROPI, LIPRF, GLYHGB #### [address] [address] Revenue Accounting Manager: Brandon Anaya MD Chloride [Moles/Vol] 96 mmol/L Low 98-107 [facility] Comment on above: Performed By: #### C DP, CP, LIP, TROPI, LIPRF, GLYHGB #### [address] [address] Revenue Accounting Manager: Brandon Anaya MD CO2 [Moles/Vol] 24 mmol/L Normal 20-31 [facility] Comment on above: Performed By: #### C DP, CP, LIP, TROPI, LIPRF, GLYHGB #### [address] [address] Revenue Accounting Manager: Brandon Anaya MD Creatinine [Mass/Vol] 0.55 mg/dL Normal 0.50-0.90 [facility] Comment on above: Performed By: #### C DP, CP, LIP, TROPI, LIPRF, GLYHGB #### [address] [address] Revenue Accounting Manager: Brandon Anaya MD GFR, Amer >60 Normal >60 [facility] Comment on above: Performed By: #### C DP, CP, LIP, TROPI, LIPRF, GLYHGB #### [address] [address] Revenue Accounting Manager: Brandon Anaya MD GFR,non Amer >60 Normal >60 [facility] Comment on above: Performed By: #### C DP, CP, LIP, TROPI, LIPRF, GLYHGB #### [address] [address] Revenue Accounting Manager: Brandon Anaya MD Glucose [Mass/Vol] 146 mg/dL High 70-99 [facility] Comment on above: Performed By: #### C DP, CP, LIP, TROPI, LIPRF, GLYHGB #### [address] [address] Revenue Accounting Manager: Brandon Anaya MD Potassium [Moles/Vol] 3.6 mmol/L Low 3.7-5.3 [facility] Comment on above: Performed By: #### C DP, CP, LIP, TROPI, LIPRF, GLYHGB #### [address] [address] Revenue Accounting Manager: Brandon Anaya MD Sodium [Moles/Vol] 135 mmol/L Normal 135-144 [facility] Comment on above: Performed By: #### C DP, CP, LIP, TROPI, LIPRF, GLYHGB #### [address] [address] Revenue Accounting Manager: Brandon Anaya MD Urea nitrogen [Mass/Vol] 13 mg/dL Normal 8-23 [facility] Comment on above: Performed By: #### C DP, CP, LIP, TROPI, LIPRF, GLYHGB #### [address] [address] Revenue Accounting Manager: Brandon Anaya MD BUN/CRE Ratio NOT REPORTED Normal - [facility] Comment on above: Performed By: #### C DP, CP, LIP, TROPI, LIPRF, GLYHGB #### [address] [address] Revenue Accounting Manager: Brandon Anaya MD Staging: NOT REPORTED Normal [facility] Comment on above: Performed By: #### C DP, CP, LIP, TROPI, LIPRF, GLYHGB #### [address] [address] Revenue Accounting Manager: Brandon Anaya MD Basic Metabolic Panel w/ Ref kervin to MGon 10-11-2019 Anion gap [Moles/Vol] 15 mmol/L 9 - 17 mmol/L [place] Bun/Cre Ratio NOT REPORTED [place] Calcium [Mass/Vol] 9.2 mg/dL 8.6 - 10. 4 mg/dL [place] Chloride [Moles/Vol] 96 mmol/L Low 98 - 10 7 mmol/L [place] CO2 [Moles/Vol] 24 mmol/L 20 - 31 mmol/L [place] Creatinine [Mass/Vol] 0.55 mg/dL 0.5 - 0.9 mg/dL [place] GFR >60 >60 mL/min [place] GFR Non- >60 >60 mL/min [place] GFR/1.73 sq M predicted among non-blacks MDRD (S/P/Bld) [Vol rate/Area] NOT REPORTED [place] GFR/1.73 sq M predicted among non-blacks MDRD (S/P/Bld) [Vol rate/Area] [place] Comment on above: Average GFR for 70 o r more years old: 75 mL/min/1.73sq m Chronic Kidney Disease: <60 mL/min/1.73sq m Kidney failure: <15 mL/min/1.73sq m eGFR calculated using average adult body mass. Additional eGFR calculator available at: http://www.[employer]/multiple_crcl_2012.htm Glucose [Mass/Vol] 146 mg/dL High 70 - 99 mg/dL [place], [place] Interpretation and review of laboratory results Abnormal [place] Potassium [Moles/Vol] 3.6 mmol/L Low 3.7 - 5.3 mmol/L [place] Sodium [Moles/Vol] 135 mmol/L 135 - 144 mmol/L [place] Urea nitrogen [Mass/Vol] 13 mg/dL 8 - 23 mg/dL [place] CBC auto differentialon 09-24 Basophils (Bld) [#/Vol] 0.03 10*3/uL [place] Basophils/100 WBC (Bld) 0 % 0 - 2 % [place] Differential Type NOT REPORTED [place] Eosinophils (Bld) [#/Vol] 10*3/uL [place] Eosinophils/100 WBC (Bld) 0 % Low 1 - 4 % [place] Erythrocyte distribution width (RBC) [Ratio] 14.3 % 11.8 - 14.4 % [place] Hematocrit (Bld) [Volume fraction] 43.6 % 36.3 - 47.1 % [place] Hemoglobin (Bld) [Mass/Vol] 13.7 g/dL 11.9 - 15.1 g/dL [place] Immature granulocytes (Bld) [#/Vol] 1 % High 0 [place] Immature granulocytes (Bld) [#/Vol] 0.07 10*3/uL [place] Interpretation and review of laboratory results Abnormal [place] Lymphocytes (Bld) [#/Vol] 0.92 10*3/uL Low [place] Lymphocytes/100 WBC (Bld) 14 % Low 24 - 43 % [place] MCH (RBC) [Entitic mass] 29.1 pg 25.2 - 33.5 pg [place] MCHC (RBC) [Mass/Vol] 31.4 g/dL 28.4 - 34.8 g/dL [place] MCV (RBC) [Entitic vol] 92.6 fL 82.6 - 102.9 fL [place] Monocytes (Bld) [#/Vol] 0.07 10*3/uL Low [place] Monocytes/100 WBC (Bld) 1 % Low 3 - 12 % [place] Platelet mean volume (Bld) [Entitic vol] 10.6 fL 8.1 - 13.5 fL [place] Platelets (Bld) [#/Vol] NOT REPORTED [place] Platelets (Bld) [#/Vol] 196 10*3/uL [place] RBC (Bld) [#/Vol] 4.71 10*6/uL 3.95 - 5.1 1 m/uL [place] RBC morphology finding Nom (Bld) NOT REPORTED [place] Segmented neutrophils/100 WBC (Bld) 84 % High 36 - 65 % [place] Segs Absolute 5.67 [place] WBC (Bld) [#/Vol] 0.0 10*3/uL 0.0 per 10 0 WBC [place] WBC (Bld) [#/Vol] 6.8 10*3/uL [place] WBC Morphology NOT REPORTED [place] CBC with Diffon 10-11-2019 Abs. Basophil 0.03 k/uL Normal 0.00-0.20 [facility] Comment on above: Performed By: #### C DP, CP, LIP, TROPI, LIPRF, GLYHGB #### [facility] [employer] [address] [place] [phone] Revenue Accounting Manager: Brandon Anaya MD Abs.Imm.Granulocyte 0.07 k/uL Normal 0.00-0.30 [facility] Comment on above: Performed By: #### C DP, CP, LIP, TROPI, LIPRF, GLYHGB #### [facility] [employer] [address] [place] [address] Revenue Accounting Manager: Brandon Anaya MD Abs.Neutrophil (Seg) 5.67 k/uL Normal 1.50-8.10 [facility] Comment on above: Performed By: #### C DP, CP, LIP, TROPI, LIPRF, GLYHGB #### [facility] [employer] [address] [place] [address] Revenue Accounting Manager: Brandon Anaya MD Basophils/100 WBC (Bld) 0 % Normal 0-2 [facility] Comment on above: Performed By: #### C DP, CP, LIP, TROPI, LIPRF, GLYHGB #### [facility] [employer] [address] [place] [address] [phone] Revenue Accounting Manager: Brandon Anaya MD Eosinophils (Bld) [#/Vol] 10*3/uL Normal 0.00-0.44 [facility] Comment on above: Performed By: #### C DP, CP, LIP, TROPI, LIPRF, GLYHGB #### [facility] [employer] [address] [place] [address] Revenue Accounting Manager: Brandon Anaya MD Eosinophils/100 WBC (Bld) 0 % Low 1-4 [facility] Comment on above: Performed By: #### C DP, CP, LIP, TROPI, LIPRF, GLYHGB #### [place] [address] Revenue Accounting Manager: Brandon Anyaa MD Erythrocyte distribution width (RBC) [Ratio] 14.3 % Normal 11.8-14.4 [facility] Comment on above: Performed By: #### C DP, CP, LIP, TROPI, LIPRF, GLYHGB #### [place] [address] Revenue Accounting Manager: Brandon Anaya MD Hematocrit (Bld) [Volume fraction] 43.6 % Normal 36.3-47.1 [facility] Comment on above: Performed By: #### C DP, CP, LIP, TROPI, LIPRF, GLYHGB #### [address] [address] Revenue Accounting Manager: Brandon Anaya MD Hemoglobin (Bld) [Mass/Vol] 13.7 g/dL Normal 11.9-15.1 [facility] Comment on above: Performed By: #### C DP, CP, LIP, TROPI, LIPRF, GLYHGB #### [facility] [employer] [address] [place] [address] Revenue Accounting Manager: Brandon Anaya MD Immature granulocytes (Bld) [#/Vol] 1 % High 0 [facility] Comment on above: Performed By: #### C DP, CP, LIP, TROPI, LIPRF, GLYHGB #### [address] [address] Revenue Accounting Manager: Brandon Anaya MD Lymphocytes (Bld) [#/Vol] 0.92 10*3/uL Low 1.10-3.70 [facility] Comment on above: Performed By: #### C DP, CP, LIP, TROPI, LIPRF, GLYHGB #### [address] [address] Revenue Accounting Manager: Brandon Anaya MD Lymphocytes/100 WBC (Bld) 14 % Low 24-43 [facility] Comment on above: Performed By: #### C DP, CP, LIP, TROPI, LIPRF, GLYHGB #### [address] [address] Revenue Accounting Manager: Brandon Anaya MD MCH (RBC) [Entitic mass] 29.1 pg Normal 25.2-33.5 [facility] Comment on above: Performed By: #### C DP, CP, LIP, TROPI, LIPRF, GLYHGB #### [place] [address] Revenue Accounting Manager: Brandon Anaya MD MCHC (RBC) [Mass/Vol] 31.4 g/dL Normal 28.4-34.8 [facility] Comment on above: Performed By: #### C DP, CP, LIP, TROPI, LIPRF, GLYHGB #### [address] [address] Revenue Accounting Manager: Brandon Anaya MD MCV (RBC) [Entitic vol] 92.6 fL Normal 82.6-102.9 [facility] Comment on above: Performed By: #### C DP, CP, LIP, TROPI, LIPRF, GLYHGB #### [address] [address] Revenue Accounting Manager: Brandon Anaya MD Monocytes (Bld) [#/Vol] 0.07 10*3/uL Low 0.10-1.20 [facility] Comment on above: Performed By: #### C DP, CP, LIP, TROPI, LIPRF, GLYHGB #### [address] [address] Revenue Accounting Manager: Brandon Anaya MD Monocytes/100 WBC (Bld) 1 % Low 3-12 [facility] Comment on above: Performed By: #### C DP, CP, LIP, TROPI, LIPRF, GLYHGB #### [place] [address] Revenue Accounting Manager: Brandon Anaya MD Neutrophil (Seg) 84 % High 36-65 [facility] Comment on above: Performed By: #### C DP, CP, LIP, TROPI, LIPRF, GLYHGB #### [place] [address] Revenue Accounting Manager: Brandon Anaya MD NRBC Automated 0.0 per 100 WBC Normal 0.0 [facility] Comment on above: Performed By: #### C DP, CP, LIP, TROPI, LIPRF, GLYHGB #### [place] [address] Revenue Accounting Manager: Brandon Anaya MD Platelet mean volume (Bld) [Entitic vol] 10.6 fL Normal 8.1-13.5 [facility] Comment on above: Performed By: #### C DP, CP, LIP, TROPI, LIPRF, GLYHGB #### [place] [address] Revenue Accounting Manager: Brandon Anaya MD Platelets (Bld) [#/Vol] 196 10*3/uL Normal 138-453 [facility] Comment on above: Performed By: #### C DP, CP, LIP, TROPI, LIPRF, GLYHGB #### [address] [address] Revenue Accounting Manager: Brandon Anaya MD RBC (Bld) [#/Vol] 4.71 10*6/uL Normal 3.95-5.11 [facility] Comment on above: Performed By: #### C DP, CP, LIP, TROPI, LIPRF, GLYHGB #### [address] [address] Revenue Accounting Manager: Brandon Anaya MD WBC (Bld) [#/Vol] 6.8 10*3/uL Normal 3.5-11.3 [facility] Comment on above: Performed By: #### C DP, CP, LIP, TROPI, LIPRF, GLYHGB #### [address] [address] Revenue Accounting Manager: Brandon Anaya MD Auto Diff Performed NOT REPORTED Normal [facility] Comment on above: Performed By: #### C DP, CP, LIP, TROPI, LIPRF, GLYHGB #### [address] [address] Revenue Accounting Manager: Brandon Anaya MD Platelets (Bld) [#/Vol] NOT REPORTED Normal [facility] Comment on above: Performed By: #### C DP, CP, LIP, TROPI, LIPRF, GLYHGB #### [address] [address] Revenue Accounting Manager: Brandon Anaya MD RBC morphology finding Nom (Bld) NOT REPORTED Normal [facility] Comment on above: Performed By: #### C DP, CP, LIP, TROPI, LIPRF, GLYHGB #### [address] [address] Revenue Accounting Manager: Brandon Anaya MD WBC Morphology NOT REPORTED Normal [facility] Comment on above: Performed By: #### C DP, CP, LIP, TROPI, LIPRF, GLYHGB #### [facility] [address] [phone] Revenue Accounting Manager: Brandon Anaya MD MRI BRAIN W WO [...] Chaitanya Sawyer MD 10/11/19 Final result Normal [facility] Prieto, Mhpn Incoming Radiant Results From [employer] - 10/11/2019 3:07 PM EDT EXAMINATION: MRI [...] Small meningioma over the right frontal lobe. [place] Volume loss with chr onic white matter microvascular ischemic change. Small meningioma over the right frontal lobe. [place] EXAMINATION: MRI OF THE BRAIN WITHOUT [...] The soft tissues demonstrate no acute abnormality. [facility] [place] POC Glucose Fingerstickon Glucose [Mass/Vol] 121 mg/dL High 65 - 105 mg/dL [place] Interpretation and review of laboratory results Abnormal [place] Glucose [Mass/Vol] 171 mg/dL High 65 - 105 mg/dL [place] Interpretation and review of laboratory results Abnormal [place] Glucose [Mass/Vol] 127 mg/dL High 65 - 105 mg/dL [place] Interpretation and review of laboratory results Abnormal [place] Glucose [Mass/Vol] 145 mg/dL High 65 - 105 mg/dL [place] Interpretation and review of laboratory results Abnormal [place] XR CHEST PORTABLEon 10-11-19 EXAMINATION: ONE XRA Y VIEW OF THE CHEST 10/11/2019 10:45 pm COMPARISON: 06/27/2017 HISTORY: ORDERING SYSTEM PROVIDED HISTORY: evaluate TECHNOLOGIST PROVIDED HISTORY: evaluate Reason for Exam: Upright portable Acuity: Unknown Type of Exam: Unknown FINDINGS: Cardiomediastinal silhouette is unchanged in size. Aortic atherosclerosis. No pulmonary consolidation, pleural effusion, or pneumothorax. No acute osseous abnormality. [place], [place] Incoming Radiant Results From [employer] - 10/11/2019 11:49 PM EDT EXAMINATION: ONE XRAY VIEW OF THE CHEST 10/11/2019 10:45 pm COMPARISON: 06/27/2017 HISTORY: ORDERING SYSTEM PROVIDED HISTORY: evaluate TECHNOLOGIST PROVIDED HISTORY: evaluate Reason for Exam: Upright portable Acuity: Unknown Type of Exam: Unknown FINDINGS: Cardiomediastinal silhouette is unchanged in size. Aortic atherosclerosis. No pulmonary consolidation, pleural effusion, or pneumothorax. No acute osseous abnormality. IMPRESSION: No acute cardiopulmonary abnormality. [place] No acute cardiopulmo nary abnormality. [place] Basic Metab w/rfx MGon 10-09 (cont.) Normal [facility] Comment on above: Result Comment: Aver age GFR for 70 or more years old: 75 mL/min/1.73sq m Chronic Kidney Disease: <60 mL/min/1.73sq m Kidney failure: <15 mL/min/1.73sq m eGFR calculated using average adult body mass. Additional eGFR calculator available at: http://www.[employer]/multiple_crcl_2011.htm Performed By: #### C DP, CP, LIP, TROPI, LIPRF, GLYHGB #### [facility] [employer] [facility] [place] [address] Revenue Accounting Manager: Brandon Anaya MD Anion gap [Moles/Vol] 10 mmol/L Normal 9-17 [facility] Comment on above: Performed By: #### C DP, CP, LIP, TROPI, LIPRF, GLYHGB #### [facility] [employer] [address] [place] [address] Revenue Accounting Manager: Brandon Anaya MD Calcium [Mass/Vol] 9.0 mg/dL Normal 8.6-10.4 [facility] Comment on above: Performed By: #### C DP, CP, LIP, TROPI, LIPRF, GLYHGB #### [facility] [employer] [address] [place] [phone] Revenue Accounting Manager: Brandon Anaya MD Chloride [Moles/Vol] 97 mmol/L Low 98-107 [facility] Comment on above: Performed By: #### C DP, CP, LIP, TROPI, LIPRF, GLYHGB #### [facility] [employer] [address] [place] [address] Revenue Accounting Manager: Brandon Anaya MD CO2 [Moles/Vol] 25 mmol/L Normal 20-31 [facility] Comment on above: Performed By: #### C DP, CP, LIP, TROPI, LIPRF, GLYHGB #### [facility] [employer] [address] [place] [phone] Revenue Accounting Manager: Brandon Anaya MD Creatinine [Mass/Vol] 0.50 mg/dL Normal 0.50-0.90 [facility] Comment on above: Performed By: #### C DP, CP, LIP, TROPI, LIPRF, GLYHGB #### [facility] [employer] [address] [place] [phone] Revenue Accounting Manager: Brandon Anaya MD GFR, Amer >60 Normal >60 [facility] Comment on above: Performed By: #### C DP, CP, LIP, TROPI, LIPRF, GLYHGB #### [facility] [employer] [address] [place] [address] Revenue Accounting Manager: Brandon Anaya MD GFR,non Amer >60 Normal >60 [facility] Comment on above: Performed By: #### C DP, CP, LIP, TROPI, LIPRF, GLYHGB #### [facility] [employer] [address] [place] [address] Revenue Accounting Manager: Brandon Anaya MD Glucose [Mass/Vol] 123 mg/dL High 70-99 [facility] Comment on above: Performed By: #### C DP, CP, LIP, TROPI, LIPRF, GLYHGB #### [address] [address] Revenue Accounting Manager: Brandon Anaya MD Potassium [Moles/Vol] 3.5 mmol/L Low 3.7-5.3 [facility] Comment on above: Performed By: #### C DP, CP, LIP, TROPI, LIPRF, GLYHGB #### [address] [address] Revenue Accounting Manager: Brandon Anaya MD Sodium [Moles/Vol] 132 mmol/L Low 135-144 [facility] Comment on above: Performed By: #### C DP, CP, LIP, TROPI, LIPRF, GLYHGB #### [address] [address] Revenue Accounting Manager: Brandon Anaya MD Urea nitrogen [Mass/Vol] 14 mg/dL Normal 8-23 [facility] Comment on above: Performed By: #### C DP, CP, LIP, TROPI, LIPRF, GLYHGB #### [address] [address] Revenue Accounting Manager: Brandon Anaya MD BUN/CRE Ratio NOT REPORTED Normal 9-20 [facility] Comment on above: Performed By: #### C DP, CP, LIP, TROPI, LIPRF, GLYHGB #### [facility] [employer] [address] [place] [address] Revenue Accounting Manager: Brandon Anaya MD Staging: NOT REPORTED Normal [facility] Comment on above: Performed By: #### C DP, CP, LIP, TROPI, LIPRF, GLYHGB #### [facility] [employer] [address] [place], [place] [phone] Revenue Accounting Manager: Brandon Anaya MD Basic Metabolic Panel w/ Ref kervin to MGon 10-10-2019 Anion gap [Moles/Vol] 10 mmol/L 9 - 17 mmol/L [place] Bun/Cre Ratio NOT REPORTED [place] Calcium [Mass/Vol] 9.0 mg/dL 8.6 - 10. 4 mg/dL [place] Chloride [Moles/Vol] 97 mmol/L Low 98 - 10 7 mmol/L [place], [place] CO2 [Moles/Vol] 25 mmol/L 20 - 31 mmol/L [place] Creatinine [Mass/Vol] 0.5 mg/dL 0.5 - 0.9 mg/dL [place] GFR >60 >60 mL/min [place] GFR Non- >60 >60 mL/min [place] GFR/1.73 sq M predicted among non-blacks MDRD (S/P/Bld) [Vol rate/Area] [place] Comment on above: Average GFR for 70 o r more years old: 75 mL/min/1.73sq m Chronic Kidney Disease: <60 mL/min/1.73sq m Kidney failure: <15 mL/min/1.73sq m eGFR calculated using average adult body mass. Additional eGFR calculator available at: http://www.[employer]usoft/multiple_crcl_2012.htm GFR/1.73 sq M predicted among non-blacks MDRD (S/P/Bld) [Vol rate/Area] NOT REPORTED [place] Glucose [Mass/Vol] 123 mg/dL High 70 - 99 mg/dL [place], [place] Interpretation and review of laboratory results Abnormal [place] Potassium [Moles/Vol] 3.5 mmol/L Low 3.7 - 5.3 mmol/L [place] Sodium [Moles/Vol] 132 mmol/L Low 135 - 144 mmol/L [place] Urea nitrogen [Mass/Vol] 14 mg/dL 8 - 23 mg/dL [place] C-REACTIVE PROTEINon 020 CRP [Mass/Vol] 6.3 mg/L High 0 - 5 mg/L [place] Interpretation and review of laboratory results Abnormal [place] C-Reactive Proteinon 020 CRP [Mass/Vol] 6.3 mg/L High 0.0-5.0 [facility] Comment on above: Performed By: #### C DP, CP, LIP, TROPI, LIPRF, GLYHGB #### [id number] [place], [place] [id number] Revenue Accounting Manager: Brandon Anaya MD CBC auto differentialon 09-24 Basophils (Bld) [#/Vol] 0.06 10*3/uL [place] Basophils/100 WBC (Bld) 1 % 0 - 2 % [place] Differential Type NOT REPORTED [place] Eosinophils (Bld) [#/Vol] 0.07 10*3/uL [place] Eosinophils/100 WBC (Bld) 1 % 1 - 4 % [place] Erythrocyte distribution width (RBC) [Ratio] 14.5 % High 11.8 - 14.4 % [place] Hematocrit (Bld) [Volume fraction] 42.7 % 36.3 - 47.1 % [place] Hemoglobin (Bld) [Mass/Vol] 13.5 g/dL 11.9 - 15.1 g/dL [place] Immature granulocytes (Bld) [#/Vol] 0.05 10*3/uL [place] Immature granulocytes (Bld) [#/Vol] 1 % High 0 [place] Interpretation and review of laboratory results Abnormal [place] Lymphocytes (Bld) [#/Vol] 1.05 10*3/uL Low [place] Lymphocytes/100 WBC (Bld) 14 % Low 24 - 43 % [place] MCH (RBC) [Entitic mass] 29.8 pg 25.2 - 33.5 pg [place] MCHC (RBC) [Mass/Vol] 31.6 g/dL 28.4 - 34.8 g/dL [place] MCV (RBC) [Entitic vol] 94.3 fL 82.6 - 102.9 fL [place] Monocytes (Bld) [#/Vol] 0.65 10*3/uL [place] Monocytes/100 WBC (Bld) 9 % 3 - 12 % [place] Platelet mean volume (Bld) [Entitic vol] 10.9 fL 8.1 - 13.5 fL [place] Platelets (Bld) [#/Vol] 170 10*3/uL [place] Platelets (Bld) [#/Vol] NOT REPORTED [place] RBC (Bld) [#/Vol] 4.53 10*6/uL 3.95 - 5.1 1 m/uL [place] RBC morphology finding Nom (Bld) ANISOCYTOSIS PRESENT [place] Segmented neutrophils/100 WBC (Bld) 74 % High 36 - 65 % [place] Segs Absolute 5.55 [place] WBC (Bld) [#/Vol] 0.0 10*3/uL 0.0 per 10 0 WBC [place] WBC (Bld) [#/Vol] 7.4 10*3/uL [place] WBC Morphology NOT REPORTED [place] CBC with Diffon 10-10-2019 Abs. Basophil 0.06 k/uL Normal 0.00-0.20 [facility] Comment on above: Performed By: #### C DP, CP, LIP, TROPI, LIPRF, GLYHGB #### [employer] [address] [place] [address] Revenue Accounting Manager: Brandon Anaya MD Abs.Imm.Granulocyte 0.05 k/uL Normal 0.00-0.30 [facility] Comment on above: Performed By: #### C DP, CP, LIP, TROPI, LIPRF, GLYHGB #### [place] [address] Revenue Accounting Manager: Brandon Anaya MD Abs.Neutrophil (Seg) 5.55 k/uL Normal 1.50-8.10 [facility] Comment on above: Performed By: #### C DP, CP, LIP, TROPI, LIPRF, GLYHGB #### [place] [address] Revenue Accounting Manager: Brandon Anaya MD Basophils/100 WBC (Bld) 1 % Normal 0-2 [facility] Comment on above: Performed By: #### C DP, CP, LIP, TROPI, LIPRF, GLYHGB #### [place] [address] Revenue Accounting Manager: Brandon Anaya MD Eosinophils (Bld) [#/Vol] 0.07 10*3/uL Normal 0.00-0.44 [facility] Comment on above: Performed By: #### C DP, CP, LIP, TROPI, LIPRF, GLYHGB #### [place] [address] Revenue Accounting Manager: Brandon Anaya MD Eosinophils/100 WBC (Bld) 1 % Normal 1-4 [facility] Comment on above: Performed By: #### C DP, CP, LIP, TROPI, LIPRF, GLYHGB #### [place] [address] Revenue Accounting Manager: Brandon Anyaa MD Erythrocyte distribution width (RBC) [Ratio] 14.5 % High 11.8-14.4 [facility] Comment on above: Performed By: #### C DP, CP, LIP, TROPI, LIPRF, GLYHGB #### [address] [address] Revenue Accounting Manager: Brandon Anaya MD Hematocrit (Bld) [Volume fraction] 42.7 % Normal 36.3-47.1 [facility] Comment on above: Performed By: #### C DP, CP, LIP, TROPI, LIPRF, GLYHGB #### [address] [address] Revenue Accounting Manager: Brandon Anaya MD Hemoglobin (Bld) [Mass/Vol] 13.5 g/dL Normal 11.9-15.1 [facility] Comment on above: Performed By: #### C DP, CP, LIP, TROPI, LIPRF, GLYHGB #### [address] [address] Revenue Accounting Manager: Brandon Anaya MD Immature granulocytes (Bld) [#/Vol] 1 % High 0 [facility] Comment on above: Performed By: #### C DP, CP, LIP, TROPI, LIPRF, GLYHGB #### [address] [address] Revenue Accounting Manager: Brandon Anaya MD Lymphocytes (Bld) [#/Vol] 1.05 10*3/uL Low 1.10-3.70 [facility] Comment on above: Performed By: #### C DP, CP, LIP, TROPI, LIPRF, GLYHGB #### [address] [address] Revenue Accounting Manager: Brandon Anaya MD Lymphocytes/100 WBC (Bld) 14 % Low 24-43 [facility] Comment on above: Performed By: #### C DP, CP, LIP, TROPI, LIPRF, GLYHGB #### [facility] [employer] [address] [place] [address] Revenue Accounting Manager: Brandon Anaya MD MCH (RBC) [Entitic mass] 29.8 pg Normal 25.2-33.5 [facility] Comment on above: Performed By: #### C DP, CP, LIP, TROPI, LIPRF, GLYHGB #### [address] [address] Revenue Accounting Manager: Brandon Anaya MD MCHC (RBC) [Mass/Vol] 31.6 g/dL Normal 28.4-34.8 [facility] Comment on above: Performed By: #### C DP, CP, LIP, TROPI, LIPRF, GLYHGB #### [address] [address] Revenue Accounting Manager: Brandon Anaya MD MCV (RBC) [Entitic vol] 94.3 fL Normal 82.6-102.9 [facility] Comment on above: Performed By: #### C DP, CP, LIP, TROPI, LIPRF, GLYHGB #### [place] [address] Revenue Accounting Manager: Brandon Anaya MD Monocytes (Bld) [#/Vol] 0.65 10*3/uL Normal 0.10-1.20 [facility] Comment on above: Performed By: #### C DP, CP, LIP, TROPI, LIPRF, GLYHGB #### [address] [address] Revenue Accounting Manager: Brandon Anaya MD Monocytes/100 WBC (Bld) 9 % Normal 3-12 [facility] Comment on above: Performed By: #### C DP, CP, LIP, TROPI, LIPRF, GLYHGB #### [address] [address] Revenue Accounting Manager: Brandon Anaya MD Neutrophil (Seg) 74 % High 36-65 [facility] Comment on above: Performed By: #### C DP, CP, LIP, TROPI, LIPRF, GLYHGB #### [address] [address] Revenue Accounting Manager: Brandon Anaya MD NRBC Automated 0.0 per 100 WBC Normal 0.0 [facility] Comment on above: Performed By: #### C DP, CP, LIP, TROPI, LIPRF, GLYHGB #### [address] [address] Revenue Accounting Manager: Brandon Anaya MD Platelet mean volume (Bld) [Entitic vol] 10.9 fL Normal 8.1-13.5 [facility] Comment on above: Performed By: #### C DP, CP, LIP, TROPI, LIPRF, GLYHGB #### [address] [address] Revenue Accounting Manager: Brandon Anaya MD Platelets (Bld) [#/Vol] 170 10*3/uL Normal 138-453 [facility] Comment on above: Performed By: #### C DP, CP, LIP, TROPI, LIPRF, GLYHGB #### [address] [address] Revenue Accounting Manager: Brandon Anaya MD RBC (Bld) [#/Vol] 4.53 10*6/uL Normal 3.95-5.11 [facility] Comment on above: Performed By: #### C DP, CP, LIP, TROPI, LIPRF, GLYHGB #### [address] [address] Revenue Accounting Manager: Brandon Anaya MD RBC morphology finding Nom (Bld) ANISOCYTOSIS PRESENT Normal [facility] Comment on above: Performed By: #### C DP, CP, LIP, TROPI, LIPRF, GLYHGB #### [address] [address] Revenue Accounting Manager: Brandon Anaya MD WBC (Bld) [#/Vol] 7.4 10*3/uL Normal 3.5-11.3 [facility] Comment on above: Performed By: #### C DP, CP, LIP, TROPI, LIPRF, GLYHGB #### [address] [address] Revenue Accounting Manager: Brandon Anaya MD Auto Diff Performed NOT REPORTED Normal [facility] Comment on above: Performed By: #### C DP, CP, LIP, TROPI, LIPRF, GLYHGB #### [address] [address] Revenue Accounting Manager: Brandon Anaya MD Platelets (Bld) [#/Vol] NOT REPORTED Normal [facility] Comment on above: Performed By: #### C DP, CP, LIP, TROPI, LIPRF, GLYHGB #### [address] [address] Revenue Accounting Manager: Brandon Anaya MD WBC Morphology NOT REPORTED Normal [facility] Comment on above: Performed By: #### C DP, CP, LIP, TROPI, LIPRF, GLYHGB #### [address] [address] Revenue Accounting Manager: Brandon Anaya MD CT HEAD WO CONTRASTon [...] Naga Browning MD 10/10/19 Final result Normal [facility] 1. No acute intracra nial abnormality. 2. Mild chronic white matter microvascular ischemic changes. [place] EXAMINATION: CT OF T HE HEAD [...] of the visualized skull or soft tissues. [place], [place] Incoming Radiant Results From [employer] - 10/10/2019 5:31 PM EDT EXAMINATION: CT [...] Mild chronic white matter microvascular ischemic changes. [place] CTA HEAD NECK W CONTRASTon 0 [...] Initial FINDINGS: CTA NECK: AORTIC ARCH/ARCH VESSELS: [id number] atherosclerotic plaque at the arch arch and [...] Naga Browning MD 10/10/19 Final result Normal [facility] EXAMINATION: CTA OF THE HEAD AND NECK [...] Initial FINDINGS: CTA NECK: AORTIC ARCH/ARCH VESSELS: [id number] atherosclerotic plaque at the arch arch and [...] fluid collection. The salmeron-white differentiation is maintained. [facility] [place] 1. No acute arterial abnormality or hemodynamically significant arterial stenosis in the head or neck. 2. No intracranial aneurysm. [place], [place] Incoming Radiant Results From [employer] - 10/10/2019 5:36 PM EDT EXAMINATION: CTA [...] Initial FINDINGS: CTA NECK: AORTIC ARCH/ARCH VESSELS: [id number]-[id number] atherosclerotic plaque at the arch arch and [...] head or neck. 2. No intracranial aneurysm. [place] Hemoglobin A1Con 10-10-2019 HbA1c (Bld) [Mass fraction] 111 mg/dL Normal [facility] Comment on above: Result Comment: The ADA and AACC recommend providing the estimated average glucose result to permit better patient understanding of their HBA1c result. Performed By: #### C DP, CP, LIP, TROPI, LIPRF, GLYHGB #### [facility] [place], [place] [id number] Revenue Accounting Manager: Brandon Anaya MD HbA1c (Bld) [Mass fraction] 5.5 % Normal 4.0-6.0 [facility] Comment on above: Performed By: #### C DP, CP, LIP, TROPI, LIPRF, GLYHGB #### [facility] [address] [place] [phone] Revenue Accounting Manager: Brandon Anaya MD Glucose [Mass/Vol] 111 mg/dL [place] Comment on above: The ADA and AACC rec ommend providing the estimated average glucose result to permit better patient understanding of their HBA1c result. HbA1c (Bld) [Mass fraction] 5.5 % 4 - 6 % [place] LACTIC ACID, WHOLE BLOODon 0 10-10-2019 Lactic Acid, Whole Blood 1.0 mmol/L 0.7 - 2.1 mmol/L [place] Lactic Acid,Whole Blon 10-09 Lactic Acid,Whole Bl 1.0 mmol/L Normal 0.7-2.1 [facility] Comment on above: Performed By: #### C DP, CP, LIP, TROPI, LIPRF, GLYHGB #### [facility] [address] [place], [place] [phone] Revenue Accounting Manager: Brandon Anaya MD Magnesiumon 10-10-2019 Magnesium [Mass/Vol] 2.1 mg/dL Normal 1.6-2.6 [facility] Comment on above: Performed By: #### C DP, CP, LIP, TROPI, LIPRF, GLYHGB #### [facility] [employer] [facility] [place] [address] Revenue Accounting Manager: Brandon Anaya MD Magnesium [Mass/Vol] 2.1 mg/dL 1.6 - 2 .6 mg/dL [facility] [place] Otheron 10-10-2019 1. Subtle sclerosis subjacent to the L2 and L3 superior endplates is age-indeterminate and could represent trabecular condensation associated with acute or subacute endplate fractures. MRI of the lumbar spine is recommended for further evaluation. 2. No acute osseous abnormality of the sacrum or coccyx. 3. Osteopenia. [place], [place] Incoming Radiant Results From [employer] - 10/10/2019 8:19 PM EDT EXAMINATION: THREE [...] of the sacrum or coccyx. 3. Osteopenia. [place] EXAMINATION: THREE X RAY VIEWS OF [...] the urinary bladder. Atherosclerotic calcifications are present. [place] POC Glucose Fingerstickon Glucose [Mass/Vol] 159 mg/dL High 65 - 105 mg/dL [place] Interpretation and review of laboratory results Abnormal [place] Glucose [Mass/Vol] 186 mg/dL High 65 - 105 mg/dL [place] Interpretation and review of laboratory results Abnormal [place] Glucose [Mass/Vol] 135 mg/dL High 65 - 105 mg/dL [place] Interpretation and review of laboratory results Abnormal [place] Procalcitoninon 10-10-2019 Procalcitonin 0.15 ng/mL High <0.09 [facility] Comment on above: Result Comment: Suspected Sepsis: [...] entered into the Change in Procalcitonin Calculator (www.imwgkp-pqv-tgktcwxhfs.com) to determine the patient's Mortality Risk Prognosis In healthy neonates, plasma Procalcitonin (PCT) concentrations increase gradually after , reaching peak values at about 24 hours of age then decrease to normal values below 0.5 ng/mL by 48-72 hours of age. Performed By: #### C DP, CP, LIP, TROPI, LIPRF, GLYHGB #### [facility] [employer] [facility] [place] [address] Revenue Accounting Manager: Brandon Anaya MD Interpretation and review of laboratory results Abnormal [place] Procalcitonin 0.15 ng/mL High <0.09 [place] Comment on above: Suspected Sepsis: <0.50 [...] entered into the Change in Procalcitonin Calculator (www.velsos-arh-bmhaoqjjvd.com) to determine the patient's Mortality Risk Prognosis In healthy neonates, plasma Procalcitonin (PCT) concentrations increase gradually after , reaching peak values at about 24 hours of age then decrease to normal values below 0.5 ng/mL by 48-72 hours of age. Sedimentation Rateon 020 Sedimentation Rate 8 mm Normal 0-30 [facility] Comment on above: Performed By: #### C DP, CP, LIP, TROPI, LIPRF, GLYHGB #### [facility] [place] [address] Revenue Accounting Manager: Brandon Anaya MD Sed Rate 8 mm 0 - 30 mm [place] TSH w/reflex to FT4on 2019 TSH Qn 1.05 m[IU]/L Normal 0.30-5.00 [facility] Comment on above: Performed By: #### C DP, CP, LIP, TROPI, LIPRF, GLYHGB #### [facility] [employer] [address] [place] [address] Revenue Accounting Manager: Brandon Anaya MD TSH with Reflexon 10-10-2019 TSH Qn 1.05 m[IU]/L [facility] [place] XR LUMBAR SPINE (2-3 [...] Naga Browning MD 10/10/19 Final result Normal [facility] XR SACRUM COCCYX (MIN 2 VIEW S)on [...] Naga Browning MD 10/10/19 Final result Normal [facility] Beta Hydroxybutyrateon 10-08 Beta Hydroxybutyrate 0.09 mmol/L Normal 0.02-0.27 [facility] Comment on above: Performed By: #### T OSMAR #### [facility] [address] [place] [address] Revenue Accounting Manager: Brandon Anaya MD Beta-Hydroxybutyrateon 10-08 Beta-Hydroxybutyrate 0.09 mmol/L 0.02 - 0.27 mmol/L [place] CBC WITH AUTO DIFFERENTIALon 10-09-2019 Basophils (Bld) [#/Vol] 0.03 10*3/uL [place] Basophils/100 WBC (Bld) 0 % 0 - 2 % [place] Differential Type NOT REPORTED [place] Eosinophils (Bld) [#/Vol] 10*3/uL [place] Eosinophils/100 WBC (Bld) 0 % Low 1 - 4 % [place] Erythrocyte distribution width (RBC) [Ratio] 14.2 % 11.8 - 14.4 % [place] Hematocrit (Bld) [Volume fraction] 44.6 % 36.3 - 47.1 % [place] Hemoglobin (Bld) [Mass/Vol] 14.2 g/dL 11.9 - 15.1 g/dL [place] Immature granulocytes (Bld) [#/Vol] 1 % High 0 [place] Immature granulocytes (Bld) [#/Vol] 0.06 10*3/uL [place] Interpretation and review of laboratory results Abnormal [place] Lymphocytes (Bld) [#/Vol] 0.97 10*3/uL Low [place] Lymphocytes/100 WBC (Bld) 13 % Low 24 - 43 % [place] MCH (RBC) [Entitic mass] 29.7 pg 25.2 - 33.5 pg [place] MCHC (RBC) [Mass/Vol] 31.8 g/dL 28.4 - 34.8 g/dL [place] MCV (RBC) [Entitic vol] 93.3 fL 82.6 - 102.9 fL [place] Monocytes (Bld) [#/Vol] 0.52 10*3/uL [place] Monocytes/100 WBC (Bld) 7 % 3 - 12 % [place] Platelet mean volume (Bld) [Entitic vol] 10.9 fL 8.1 - 13.5 fL [place] Platelets (Bld) [#/Vol] NOT REPORTED [place] Platelets (Bld) [#/Vol] 202 10*3/uL [place] RBC (Bld) [#/Vol] 4.78 10*6/uL 3.95 - 5.1 1 m/uL [place] RBC morphology finding Nom (Bld) NOT REPORTED [place] Segmented neutrophils/100 WBC (Bld) 79 % High 36 - 65 % [place] Segs Absolute 6.10 [place] WBC (Bld) [#/Vol] 0.0 10*3/uL 0.0 per 10 0 WBC [place] WBC (Bld) [#/Vol] 7.7 10*3/uL [place] WBC Morphology NOT REPORTED [place] CBC with Diffon 10-09-2019 Abs. Basophil 0.03 k/uL Normal 0.00-0.20 [facility] Comment on above: Performed By: #### C DP, CP, LIP, TROPI, LIPRF, GLYHGB #### [address] [address] Revenue Accounting Manager: Brandon Anaya MD Abs.Imm.Granulocyte 0.06 k/uL Normal 0.00-0.30 [facility] Comment on above: Performed By: #### C DP, CP, LIP, TROPI, LIPRF, GLYHGB #### [address] [address] Revenue Accounting Manager: Brandon Anaya MD Abs.Neutrophil (Seg) 6.10 k/uL Normal 1.50-8.10 [facility] Comment on above: Performed By: #### C DP, CP, LIP, TROPI, LIPRF, GLYHGB #### [address] [address] Revenue Accounting Manager: Brandon Anaya MD Basophils/100 WBC (Bld) 0 % Normal 0-2 [facility] Comment on above: Performed By: #### C DP, CP, LIP, TROPI, LIPRF, GLYHGB #### [address] [address] Revenue Accounting Manager: Brandon Anaya MD Eosinophils (Bld) [#/Vol] 10*3/uL Normal 0.00-0.44 [facility] Comment on above: Performed By: #### C DP, CP, LIP, TROPI, LIPRF, GLYHGB #### [address] [address] Revenue Accounting Manager: Brandon Anaya MD Eosinophils/100 WBC (Bld) 0 % Low 1-4 [facility] Comment on above: Performed By: #### C DP, CP, LIP, TROPI, LIPRF, GLYHGB #### [address] [address] Revenue Accounting Manager: Brandon Anaya MD Erythrocyte distribution width (RBC) [Ratio] 14.2 % Normal 11.8-14.4 [facility] Comment on above: Performed By: #### C DP, CP, LIP, TROPI, LIPRF, GLYHGB #### [address] [address] Revenue Accounting Manager: Brandon Anaya MD Hematocrit (Bld) [Volume fraction] 44.6 % Normal 36.3-47.1 [facility] Comment on above: Performed By: #### C DP, CP, LIP, TROPI, LIPRF, GLYHGB #### [address] [address] Revenue Accounting Manager: Brandon Anaya MD Hemoglobin (Bld) [Mass/Vol] 14.2 g/dL Normal 11.9-15.1 [facility] Comment on above: Performed By: #### C DP, CP, LIP, TROPI, LIPRF, GLYHGB #### [address] [address] Revenue Accounting Manager: Brandon Anaya MD Immature granulocytes (Bld) [#/Vol] 1 % High 0 [facility] Comment on above: Performed By: #### C DP, CP, LIP, TROPI, LIPRF, GLYHGB #### [address] [address] Revenue Accounting Manager: Brandon Anaya MD Lymphocytes (Bld) [#/Vol] 0.97 10*3/uL Low 1.10-3.70 [facility] Comment on above: Performed By: #### C DP, CP, LIP, TROPI, LIPRF, GLYHGB #### [facility] [employer] [address] [place] [address] Revenue Accounting Manager: Brandon Anaya MD Lymphocytes/100 WBC (Bld) 13 % Low 24-43 [facility] Comment on above: Performed By: #### C DP, CP, LIP, TROPI, LIPRF, GLYHGB #### [address] [address] Revenue Accounting Manager: Brandon Anaya MD MCH (RBC) [Entitic mass] 29.7 pg Normal 25.2-33.5 [facility] Comment on above: Performed By: #### C DP, CP, LIP, TROPI, LIPRF, GLYHGB #### [address] [address] Revenue Accounting Manager: Brandon Anaya MD MCHC (RBC) [Mass/Vol] 31.8 g/dL Normal 28.4-34.8 [facility] Comment on above: Performed By: #### C DP, CP, LIP, TROPI, LIPRF, GLYHGB #### [address] [address] Revenue Accounting Manager: Brandon Anaya MD MCV (RBC) [Entitic vol] 93.3 fL Normal 82.6-102.9 [facility] Comment on above: Performed By: #### C DP, CP, LIP, TROPI, LIPRF, GLYHGB #### [place] [address] Revenue Accounting Manager: Brandon Anaya MD Monocytes (Bld) [#/Vol] 0.52 10*3/uL Normal 0.10-1.20 [facility] Comment on above: Performed By: #### C DP, CP, LIP, TROPI, LIPRF, GLYHGB #### [address] [address] Revenue Accounting Manager: Brandon Anaya MD Monocytes/100 WBC (Bld) 7 % Normal 3-12 [facility] Comment on above: Performed By: #### C DP, CP, LIP, TROPI, LIPRF, GLYHGB #### [address] [address] Revenue Accounting Manager: Brandon Anaya MD Neutrophil (Seg) 79 % High 36-65 [facility] Comment on above: Performed By: #### C DP, CP, LIP, TROPI, LIPRF, GLYHGB #### [address] [address] Revenue Accounting Manager: Brandon Anaya MD NRBC Automated 0.0 per 100 WBC Normal 0.0 [facility] Comment on above: Performed By: #### C DP, CP, LIP, TROPI, LIPRF, GLYHGB #### [address] [address] Revenue Accounting Manager: Brandon Anaya MD Platelet mean volume (Bld) [Entitic vol] 10.9 fL Normal 8.1-13.5 [facility] Comment on above: Performed By: #### C DP, CP, LIP, TROPI, LIPRF, GLYHGB #### [address] [address] Revenue Accounting Manager: Brandon Anaya MD Platelets (Bld) [#/Vol] 202 10*3/uL Normal 138-453 [facility] Comment on above: Performed By: #### C DP, CP, LIP, TROPI, LIPRF, GLYHGB #### [address] [address] Revenue Accounting Manager: Brandon Anaya MD RBC (Bld) [#/Vol] 4.78 10*6/uL Normal 3.95-5.11 [facility] Comment on above: Performed By: #### C DP, CP, LIP, TROPI, LIPRF, GLYHGB #### [address] [address] Revenue Accounting Manager: Brandon Anaya MD WBC (Bld) [#/Vol] 7.7 10*3/uL Normal 3.5-11.3 [facility] Comment on above: Performed By: #### C DP, CP, LIP, TROPI, LIPRF, GLYHGB #### [address] [address] Revenue Accounting Manager: Brandon Anaya MD Auto Diff Performed NOT REPORTED Normal [facility] Comment on above: Performed By: #### C DP, CP, LIP, TROPI, LIPRF, GLYHGB #### [address] [address] Revenue Accounting Manager: Brandon Anaya MD Platelets (Bld) [#/Vol] NOT REPORTED Normal [facility] Comment on above: Performed By: #### C DP, CP, LIP, TROPI, LIPRF, GLYHGB #### [address] [address] Revenue Accounting Manager: Brandon Anaya MD RBC morphology finding Nom (Bld) NOT REPORTED Normal [facility] Comment on above: Performed By: #### C DP, CP, LIP, TROPI, LIPRF, GLYHGB #### [address] [address] Revenue Accounting Manager: Brandon Anaya MD WBC Morphology NOT REPORTED Normal [facility] Comment on above: Performed By: #### C DP, CP, LIP, TROPI, LIPRF, GLYHGB #### [address] [address] Revenue Accounting Manager: Brandon Anaya MD COVID-19, PCRon 10-09-2019 SARS-CoV-2 [place] SARS-CoV-2, PCR [place] SARS-CoV-2, Rapid Not Detected Not Detected [place], [place] Comment on above: Rapid NAAT: The [...] management decisions. Fact sheet for Healthcare Providers: https://www.fda.gov/media/515687/download Fact sheet for Patients: https://www.fda.gov/media/258742/download Methodology: Isothermal Nucleic Acid Amplification Source .NASOPHARYNGEAL SWAB [place], [place] CT CHEST PULMONARY EMBOLISM W CONTRASTon [...] Wendy Darby MD 10/09/19 Final result Normal [facility] No central or segmen rhett pulmonary embolus. No acute pulmonary process. Emphysema. [place] EXAMINATION: CTA OF THE CHEST 10/09/2019 [...] focal consolidation. Bones: Thoracic spine degenerative changes. [facility] Incoming Radiant Results From [employer] - 10/09/2019 8:31 AM EDT EXAMINATION: CTA [...] pulmonary embolus. No acute pulmonary process. Emphysema. [employer] [facility] Comp Metabolic Profon 2019 (cont.) Normal [facility] Comment on above: Result Comment: Aver age GFR for 70 or more years old: 75 mL/min/1.73sq m Chronic Kidney Disease: <60 mL/min/1.73sq m Kidney failure: <15 mL/min/1.73sq m eGFR calculated using average adult body mass. Additional eGFR calculator available at: http://www.[employer]/multiple_crcl_2011.htm Performed By: #### C DP, CP, LIP, TROPI, LIPRF, GLYHGB #### [address] [address] Revenue Accounting Manager: Brandon Anaya MD Albumin [Mass/Vol] 4.1 g/dL Normal 3.5-5.2 [facility] Comment on above: Performed By: #### C DP, CP, LIP, TROPI, LIPRF, GLYHGB #### [address] [address] Revenue Accounting Manager: Brandon Anaya MD Albumin/Globulin [Mass ratio] 1.6 {ratio} Normal 1.0-2.5 [facility] Comment on above: Performed By: #### C DP, CP, LIP, TROPI, LIPRF, GLYHGB #### [address] [address] Revenue Accounting Manager: Brandon Anaya MD Alkaline Phos 90 U/L Normal 35-104 [facility] Comment on above: Performed By: #### C DP, CP, LIP, TROPI, LIPRF, GLYHGB #### [address] [address] Revenue Accounting Manager: Brandon Anaya MD ALT [Catalytic activity/Vol] 15 U/L Normal 5-33 [facility] Comment on above: Performed By: #### C DP, CP, LIP, TROPI, LIPRF, GLYHGB #### [address] [address] Revenue Accounting Manager: Brandon Anaay MD Anion gap [Moles/Vol] 18 mmol/L High 9-17 [facility] Comment on above: Performed By: #### C DP, CP, LIP, TROPI, LIPRF, GLYHGB #### [facility] [employer] [address] [place] [address] Revenue Accounting Manager: Brandon Anaya MD AST [Catalytic activity/Vol] 11 U/L Normal <32 [facility] Comment on above: Performed By: #### C DP, CP, LIP, TROPI, LIPRF, GLYHGB #### [address] [address] Revenue Accounting Manager: Brandon Anaya MD Bilirubin Ql (U) 0.39 mg/dL Normal 0.3-1.2 [facility] Comment on above: Performed By: #### C DP, CP, LIP, TROPI, LIPRF, GLYHGB #### [address] [address] Revenue Accounting Manager: Brandon Anaya MD Calcium [Mass/Vol] 9.5 mg/dL Normal 8.6-10.4 [facility] Comment on above: Performed By: #### C DP, CP, LIP, TROPI, LIPRF, GLYHGB #### [facility] [employer] [address] [place] [address] Revenue Accounting Manager: Brandon Anaya MD Chloride [Moles/Vol] 99 mmol/L Normal 98-107 [facility] Comment on above: Performed By: #### C DP, CP, LIP, TROPI, LIPRF, GLYHGB #### [facility] [employer] [address] [place] [address] Revenue Accounting Manager: Brandon Anaya MD CO2 [Moles/Vol] 24 mmol/L Normal 20-31 [facility] Comment on above: Performed By: #### C DP, CP, LIP, TROPI, LIPRF, GLYHGB #### [facility] [employer] [address] [place] [phone] Revenue Accounting Manager: Brandon Anaya MD Creatinine [Mass/Vol] 0.63 mg/dL Normal 0.50-0.90 [facility] Comment on above: Performed By: #### C DP, CP, LIP, TROPI, LIPRF, GLYHGB #### [facility] [employer] [address] [place] [phone] Revenue Accounting Manager: Brandon Anaya MD GFR, Amer >60 Normal >60 [facility] Comment on above: Performed By: #### C DP, CP, LIP, TROPI, LIPRF, GLYHGB #### [facility] [employer] [address] [place] [phone] Revenue Accounting Manager: Brandon Anaya MD GFR,non Amer >60 Normal >60 [facility] Comment on above: Performed By: #### C DP, CP, LIP, TROPI, LIPRF, GLYHGB #### [facility] [employer] [address] [place] [phone] Revenue Accounting Manager: Brandon Anaya MD Glucose [Mass/Vol] 208 mg/dL High 70-99 [facility] Comment on above: Performed By: #### C DP, CP, LIP, TROPI, LIPRF, GLYHGB #### [facility] [employer] [address] [place] [address] Revenue Accounting Manager: Brandon Anaya MD Potassium [Moles/Vol] 3.9 mmol/L Normal 3.7-5.3 [facility] Comment on above: Performed By: #### C DP, CP, LIP, TROPI, LIPRF, GLYHGB #### [facility] [employer] [address] [place] [phone] Revenue Accounting Manager: Brandon Anaya MD Protein [Mass/Vol] 6.6 g/dL Normal 6.4-8.3 [facility] Comment on above: Performed By: #### C DP, CP, LIP, TROPI, LIPRF, GLYHGB #### [facility] [employer] [address] [place] [phone] Revenue Accounting Manager: Brandon Anaya MD Sodium [Moles/Vol] 141 mmol/L Normal 135-144 [facility] Comment on above: Performed By: #### C DP, CP, LIP, TROPI, LIPRF, GLYHGB #### [facility] [employer] [address] [place] [address] Revenue Accounting Manager: Brandon Anaya MD Urea nitrogen [Mass/Vol] 17 mg/dL Normal 8- [facility] Comment on above: Performed By: #### C DP, CP, LIP, TROPI, LIPRF, GLYHGB #### [facility] [address] [place] [address] Revenue Accounting Manager: Brandon Anaya MD BUN/CRE Ratio NOT REPORTED Normal - [facility] Comment on above: Performed By: #### C DP, CP, LIP, TROPI, LIPRF, GLYHGB #### [facility] [employer] [address] [place] [address] Revenue Accounting Manager: Brandon Anaya MD Staging: NOT REPORTED Normal [facility] Comment on above: Performed By: #### C DP, CP, LIP, TROPI, LIPRF, GLYHGB #### [facility] [address] [place] [address] Revenue Accounting Manager: Brandon Anaya MD Comprehensive Metabolic Pane [facility] 10-09-2019 Albumin [Mass/Vol] 4.1 g/dL 3.5 - 5.2 g/dL [place] Albumin/Globulin [Mass ratio] 1.6 {ratio} [place] ALP [Catalytic activity/Vol] 90 U/L 35 - 104 U/L [place] ALT [Catalytic activity/Vol] 15 U/L 5 - 33 U/L [place] Anion gap [Moles/Vol] 18 mmol/L High 9 - 17 mmol/L [place] AST [Catalytic activity/Vol] 11 U/L <32 [place] Bilirubin Ql (U) 0.39 mg/dL 0.3 - 1.2 mg/dL [place] Bun/Cre Ratio NOT REPORTED [place] Calcium [Mass/Vol] 9.5 mg/dL 8.6 - 10. 4 mg/dL [place] Chloride [Moles/Vol] 99 mmol/L 98 - 10 7 mmol/L [place] CO2 [Moles/Vol] 24 mmol/L 20 - 31 mmol/L [place] Creatinine [Mass/Vol] 0.63 mg/dL 0.5 - 0.9 mg/dL [place] GFR >60 >60 mL/min [place] GFR Non- >60 >60 mL/min [place] GFR/1.73 sq M predicted among non-blacks MDRD (S/P/Bld) [Vol rate/Area] [place] Comment on above: Average GFR for 70 o r more years old: 75 mL/min/1.73sq m Chronic Kidney Disease: <60 mL/min/1.73sq m Kidney failure: <15 mL/min/1.73sq m eGFR calculated using average adult body mass. Additional eGFR calculator available at: http://www.[employer]/multiple_crcl_2012.htm GFR/1.73 sq M predicted among non-blacks MDRD (S/P/Bld) [Vol rate/Area] NOT REPORTED [place] Glucose [Mass/Vol] 208 mg/dL High 70 - 99 mg/dL [place] Interpretation and review of laboratory results Abnormal [place] Potassium [Moles/Vol] 3.9 mmol/L 3.7 - 5.3 mmol/L [place] Protein [Mass/Vol] 6.6 g/dL 6.4 - 8.3 g/dL [place] Sodium [Moles/Vol] 141 mmol/L 135 - 144 mmol/L [place] Urea nitrogen [Mass/Vol] 17 mg/dL 8 - 23 mg/dL [place] EKG 12 Leadon 10-09-2019 Atrial Rate 70 BPM [place] P [place] 54 degrees [place] P-R Interval 136 ms [place] Q-T Interval 432 ms [facility], [place] QRS Duration 80 ms [place] QTc Calculation (Bazett) 466 ms [place] R [place] -9 degrees [facility], [place] T [place] 3 degrees [facility], [place] Ventricular Rate 70 BPM [place], [place] Incoming E kg Results From [facility] - 10/09/2019 3:25 PM EDT Normal sinus rhythm Possible Left atrial enlargement Nonspecific ST abnormality Abnormal ECG No previous ECGs available [place] Normal sinus rhythm Possible Left atrial enlargement Nonspecific ST abnormality Abnormal ECG No previous ECGs available [place] LIPASEon 10-09-2019 Lipase [Catalytic activity/Vol] 48 U/L 13 - 60 U/L [place] Lipaseon 10-09-2019 Lipase [Catalytic activity/Vol] 48 U/L Normal 13-60 [facility] Comment on above: Performed By: #### C DP, CP, LIP, TROPI, LIPRF, GLYHGB #### [facility] [address] [place] [phone] Revenue Accounting Manager: Brandon Anaya MD Lipid Prof, Fastingon 2019 Cholesterol [Mass/Vol] 229 mg/dL High <200 [facility] Comment on above: Result Comment: Cholesterol Guidelines: <200 Desirable 200-240 Borderline >240 Undesirable Performed By: #### C DP, CP, LIP, TROPI, LIPRF, GLYHGB #### [facility] [address] [place] [phone] Revenue Accounting Manager: Brandon Anaya MD Cholesterol in HDL [Mass/Vol] 50 mg/dL Normal >40 [facility] Comment on above: Result Comment: HDL Guidelines: <40 Undesirable 40-59 Borderline >59 Desirable Performed By: #### C DP, CP, LIP, TROPI, LIPRF, GLYHGB #### [facility] [address] [place] [address] [phone] Revenue Accounting Manager: Brandon Anaya MD Cholesterol in LDL [Mass/Vol] 143 mg/dL High 0-130 [facility] Comment on above: Result Comment: LDL Guidelines: <100 Desirable 100-129 Near to/above Desirable 130-159 Borderline >159 Undesirable Direct (measured) LDL and calculated LDL are not interchangeable tests. Performed By: #### C DP, CP, LIP, TROPI, LIPRF, GLYHGB #### [facility] [employer] [address] [place] [phone] Revenue Accounting Manager: Brandon Anaya MD Cholesterol.total/Chol esterol in HDL [Mass ratio] 4.6 {ratio} Normal <5 [facility] Comment on above: Performed By: #### C DP, CP, LIP, TROPI, LIPRF, GLYHGB #### [facility] [employer] [address] [place] [phone] Revenue Accounting Manager: Brandon Anaya MD Triglyceride,Fasting 182 mg/dL High <150 [facility] Comment on above: Result Comment: Triglyceride Guidelines: <150 Desirable 150-199 Borderline 200-499 High >499 Very high Based on AHA Guidelines for fasting triglyceride, November 2011. Performed By: #### C DP, CP, LIP, TROPI, LIPRF, GLYHGB #### [facility] [employer] [facility] [place] [address] Revenue Accounting Manager: Brandon Anaya MD Cholesterol in VLDL [Mass/Vol] NOT REPORTED Normal -30 [facility] Comment on above: Performed By: #### C DP, CP, LIP, TROPI, LIPRF, GLYHGB #### [facility] [employer] [facility] [place] [address] Revenue Accounting Manager: Brandon Anaya MD Lipid, Fastingon 10-09-2019 Cholesterol [Mass/Vol] 229 mg/dL High <200 [place] Comment on above: Cholesterol Guidelines: <200 Desirable 200-240 Borderline >240 Undesirable Cholesterol in HDL [Mass/Vol] 50 mg/dL >40 [place] Comment on above: HDL Guidelines: <40 Undesirable 40-59 Borderline >59 Desirable Cholesterol in LDL [Mass/Vol] 143 mg/dL High 0 - 130 mg/dL [place] Comment on above: LDL Guidelines: <100 Desirable 100-129 Near to/above Desirable 130-159 Borderline >159 Undesirable Direct (measured) LDL and calculated LDL are not interchangeable tests. Cholesterol in VLDL [Mass/Vol] NOT REPORTED High 1 - 30 mg/dL [place] Cholesterol.total/Chol esterol in HDL [Mass ratio] 4.6 {ratio} <5 [place] Interpretation and review of laboratory results Abnormal [place] Triglyceride, Fasting 182 mg/dL High <150 [place] Comment on above: Triglyceride Guidelines: <150 Desirable 150-199 Borderline 200-499 High >499 Very high Based on AHA Guidelines for fasting triglyceride, November 2011. POC Glucose Fingerstickon Glucose [Mass/Vol] 126 mg/dL High 65 - 105 mg/dL [place] Interpretation and review of laboratory results Abnormal [place] [id number] 10-09-2019 SARS-CoV-2 Normal [facility] Comment on above: Performed By: #### C OVID #### [facility] [employer] [address] [place] [phone] Revenue Accounting Manager: Brandon Anaya MD SARS-CoV-2,Rapid Not Detected Normal NOTDET [facility] Comment on above: Result Comment: Rapid NAAT: [...] management decisions. Fact sheet for Healthcare Providers: https://www.fda.gov/media/491159/download Fact sheet for Patients: https://www.fda.gov/media/898930/download Methodology: Isothermal Nucleic Acid Amplification Performed By: #### C OVID #### [facility] [address] [place] [phone] Revenue Accounting Manager: Brandon Anaya MD SARS-CoV-2 Source .NASOPHARYNGEAL SWAB Normal [facility] Comment on above: Performed By: #### C OVID #### [facility] [address] [place] [phone] Revenue Accounting Manager: Brandon Anaya MD Troponinon 10-09-2019 Troponin I.cardiac [Mass/Vol] 10 ng/L Normal 0-14 [facility] Comment on above: Result Comment: High Sensitivity Troponin values cannot be compared with other Troponin methodologies. Patients with high levels of Biotin oral intake (i.e >5mg/day) may have falsely decreased Troponin levels. Samples collected within 8 hours of biotin intake may require additional information for diagnosis. Performed By: #### T OSMAR #### [facility] [address] [place] [phone] Revenue Accounting Manager: Brandon Anaya MD Troponin I.cardiac [Mass/Vol] NOT REPORTED Normal <0.03 [facility] Comment on above: Performed By: #### T OSMAR #### [facility] [address] [place] [phone] Revenue Accounting Manager: Brandon nAaya MD Troponin I.cardiac [Mass/Vol] 10 ng/L Normal 0-14 [facility] Comment on above: Result Comment: High Sensitivity Troponin values cannot be compared with other Troponin methodologies. Patients with high levels of Biotin oral intake (i.e >5mg/day) may have falsely decreased Troponin levels. Samples collected within 8 hours of biotin intake may require additional information for diagnosis. Performed By: #### C DP, CP, LIP, TROPI, LIPRF, GLYHGB #### [facility] [address] [place], [place] [phone] Revenue Accounting Manager: Brandon Anaya MD Troponin I.cardiac [Mass/Vol] NOT REPORTED [place] Troponin T.cardiac [Mass/Vol] NOT REPORTED <0.03 ng/mL [place] Troponin, High Sensitivity 10 ng/L 0 - 14 ng/L [place] Comment on above: High Sensitivity Troponin values cannot be compared with other Troponin methodologies. Patients with high levels of Biotin oral intake (i.e >5mg/day) may have falsely decreased Troponin levels. Samples collected within 8 hours of biotin intake may require additional information for diagnosis. Troponin I.cardiac [Mass/Vol] NOT REPORTED Normal <0.03 [facility] Comment on above: Performed By: #### C DP, CP, LIP, TROPI, LIPRF, GLYHGB #### [facility] [address] [place] [address] Revenue Accounting Manager: Brandon Anaya MD Troponin I.cardiac [Mass/Vol] NOT REPORTED [place] Troponin T.cardiac [Mass/Vol] NOT REPORTED <0.03 ng/mL [place] Troponin, High Sensitivity 10 ng/L 0 - 14 ng/L [place] Comment on above: High Sensitivity Troponin values cannot be compared with other Troponin methodologies. Patients with high levels of Biotin oral intake (i.e >5mg/day) may have falsely decreased Troponin levels. Samples collected within 8 hours of biotin intake may require additional information for diagnosis. UA w/Reflex Cultureon 2019 Acetoacetic Acid,Ur TRACE Abnormal NEG [facility] Comment on above: Performed By: #### C DP, CP, LIP, TROPI, LIPRF, GLYHGB #### [facility] [address] [place] [address] [phone] Revenue Accounting Manager: Brandon Anaya MD Bilirubin, SemiQt,Ur Negative Normal NEG [facility] Comment on above: Performed By: #### C DP, CP, LIP, TROPI, LIPRF, GLYHGB #### [address] [address] Revenue Accounting Manager: Brandon Anaya MD Color (U) YELLOW Normal YEL [facility] Comment on above: Performed By: #### C DP, CP, LIP, TROPI, LIPRF, GLYHGB #### [address] [address] Revenue Accounting Manager: Brandon Anaya MD Glucose Ql (U) Negative Normal NEG [facility] Comment on above: Performed By: #### C DP, CP, LIP, TROPI, LIPRF, GLYHGB #### [address] [address] Revenue Accounting Manager: Brandon Anaya MD Hemoglobin, Ur Negative Normal NEG [facility] Comment on above: Performed By: #### C DP, CP, LIP, TROPI, LIPRF, GLYHGB #### [address] [address] Revenue Accounting Manager: Brandon Anaya MD Leukocyte esterase Test strip Ql (U) Negative Normal NEG [facility] Comment on above: Performed By: #### C DP, CP, LIP, TROPI, LIPRF, GLYHGB #### [address] [address] Revenue Accounting Manager: Brandon Anaya MD Nitrite,Ur Negative Normal NEG [facility] Comment on above: Performed By: #### C DP, CP, LIP, TROPI, LIPRF, GLYHGB #### [address] [address] Revenue Accounting Manager: Brandon Anaya MD pH (U) 5.5 [pH] Normal 5.0-8.0 [facility] Comment on above: Performed By: #### C DP, CP, LIP, TROPI, LIPRF, GLYHGB #### [address] [address] Revenue Accounting Manager: Brandon Anaya MD Protein Ql (U) 1+ Abnormal NEG [facility] Comment on above: Performed By: #### C DP, CP, LIP, TROPI, LIPRF, GLYHGB #### [address] [place] [place] [address] Revenue Accounting Manager: Brandon Anaya MD Specific gravity (U) [Rel density] 1.086 High 1.005-1.030 [facility] Comment on above: Performed By: #### C DP, CP, LIP, TROPI, LIPRF, GLYHGB #### [address] [address] Revenue Accounting Manager: Brandon Anaya MD Turbidity CLEAR Normal CLEAR [facility] Comment on above: Performed By: #### C DP, CP, LIP, TROPI, LIPRF, GLYHGB #### [address] [address] Revenue Accounting Manager: Brandon Anaya MD Urobilinogen,Ur Normal Normal NORM [facility] Comment on above: Performed By: #### C DP, CP, LIP, TROPI, LIPRF, GLYHGB #### [address] [address] Revenue Accounting Manager: Brandon Anaya MD Comment NOT REPORTED Normal [facility] Comment on above: Performed By: #### C DP, CP, LIP, TROPI, LIPRF, GLYHGB #### [address] [address] Revenue Accounting Manager: Brandon Anaya MD URINALYSIS, MICROon 10-09-19 20 Amorphous, UA NOT REPORTED None [facility] [place] Bacteria, UA NOT REPORTED None [facility] [place] Casts UA NOT REPORTED [facility] [place] Crystals, UA NOT REPORTED None /HPF [facility] [place] Epithelial Cells UA 10 TO 20 [facility] [place] Mucus, UA NOT REPORTED None [place] Other Observations UA NOT REPORTED NOT REQ. [place] RBC (U) [#/Vol] 0 TO 2 [place] Renal Epithelial, UA NOT REPORTED 0 /HPF [place] Trichomonas, UA NOT REPORTED None [place] WBC, UA 0 TO 2 [place] Yeast, UA NOT REPORTED None [place] ABDOMEN LIMITEDon 020 [place] ABDOMEN LIMITED EXAMINATION: RIGHT UPPER QUADRANT ULTRASOUND 10/09/2019 3:35 pm COMPARISON: None. HISTORY: ORDERING SYSTEM PROVIDED HISTORY: RUQ and epigastric pain, r/o cholecystitis, gall bladder, pancreas change control specialist PROVIDED HISTORY: RUQ and epigastric pain, r/o [...] Fransisco Ochoa MD 10/09/19 Final result Normal [facility] US ABDOMEN LIMITED Specify o rgan? LIVER, GALLBLADDER, PANCREASon 10-09-2019 EXAMINATION: RIGHT U PPER QUADRANT ULTRASOUND 10/09/2019 3:35 pm COMPARISON: None. HISTORY: ORDERING SYSTEM PROVIDED HISTORY: RUQ and epigastric pain, r/o cholecystitis, gall bladder, pancreas change control specialist PROVIDED HISTORY: RUQ and epigastric pain, r/o [...] No evidence of right upper quadrant ascites. [place] Unremarkable right u pper quadrant ultrasound. [place], [place] Incoming Radiant Results From [employer] - 10/09/2019 4:01 PM EDT EXAMINATION: RIGHT UPPER QUADRANT ULTRASOUND 10/09/2019 3:35 pm COMPARISON: None. HISTORY: ORDERING SYSTEM PROVIDED HISTORY: RUQ and epigastric pain, r/o cholecystitis, gall bladder, pancreas change control specialist PROVIDED HISTORY: RUQ and epigastric pain, r/o [...] ascites. IMPRESSION: Unremarkable right upper quadrant ultrasound. [place] Urinalysis Reflex to Culture on 10-09-2019 Bilirubin Urine Negative NEGATIVE [place] Color, UA YELLOW YELLOW [place] Glucose, Ur Negative NEGATIVE [place] Interpretation and review of laboratory results Abnormal [place] Ketones Ql (U) TRACE Abnormal NEGATIVE [place] Leukocyte esterase Test strip Ql (U) Negative NEGATIVE [place] Nitrite, Urine Negative NEGATIVE [place] pH, UA 5.5 [place] Protein (U) [Mass/Vol] 1+ Abnormal NEGATIVE [place] Specific [place], UA 1.086 High [place] Turbidity UA CLEAR CLEAR [place] Urinalysis Comments NOT REPORTED [place] Urine Hgb Negative NEGATIVE [place] Urobilinogen, Urine Normal Normal [facility] [place] Urinalysis,Microon 0 ----- Normal [facility] Comment on above: Performed By: #### C DP, CP, LIP, TROPI, LIPRF, GLYHGB #### [facility] [employer] [address] [place] [phone] Revenue Accounting Manager: Brandon Anaya MD Epithelial cells LM.HPF (Urine sed) [#/Area] 10 TO 20 Normal 0-5 [facility] Comment on above: Performed By: #### C DP, CP, LIP, TROPI, LIPRF, GLYHGB #### [address] [address] Revenue Accounting Manager: Brandon Anaya MD RBC (U) [#/Vol] 0 TO 2 Normal 0-2 [facility] Comment on above: Performed By: #### C DP, CP, LIP, TROPI, LIPRF, GLYHGB #### [address] [address] Revenue Accounting Manager: Brandon Anaya MD WBC (U) [#/Vol] 0 TO 2 Normal 0-5 [facility] Comment on above: Performed By: #### C DP, CP, LIP, TROPI, LIPRF, GLYHGB #### [facility] [employer] [address] [place] [address] Revenue Accounting Manager: Brandon Anaya MD Amorphous sediment LM Ql (Urine sed) NOT REPORTED Normal [facility] Comment on above: Performed By: #### C DP, CP, LIP, TROPI, LIPRF, GLYHGB #### [facility] [employer] [address] [place] [phone] Revenue Accounting Manager: Brandon Anaya MD Bacteria LM.HPF (Urine sed) [#/Area] NOT REPORTED Normal [facility] Comment on above: Performed By: #### C DP, CP, LIP, TROPI, LIPRF, GLYHGB #### [address] [address] Revenue Accounting Manager: Brandon Anaya MD Casts LM.LPF (Urine sed) [#/Area] NOT REPORTED Normal 0-2 [facility] Comment on above: Performed By: #### C DP, CP, LIP, TROPI, LIPRF, GLYHGB #### [address] [address] Revenue Accounting Manager: Brandon Anaya MD Crystals LM Nom (Urine sed) NOT REPORTED Normal NONE [facility] Comment on above: Performed By: #### C DP, CP, LIP, TROPI, LIPRF, GLYHGB #### [address] [address] Revenue Accounting Manager: Brandon Anaya MD Epithelial, Renal NOT REPORTED Normal 0 [facility] Comment on above: Performed By: #### C DP, CP, LIP, TROPI, LIPRF, GLYHGB #### [address] [address] Revenue Accounting Manager: Brandon Anaya MD Mucus Strands NOT REPORTED Normal NONE [facility] Comment on above: Performed By: #### C DP, CP, LIP, TROPI, LIPRF, GLYHGB #### [facility] [employer] [address] [place] [phone] Revenue Accounting Manager: Brandon Anaya MD Other Observations NOT REPORTED Normal [facility] Comment on above: Performed By: #### C DP, CP, LIP, TROPI, LIPRF, GLYHGB #### [facility] [address] [place] [phone] Revenue Accounting Manager: Brandon Anaya MD Trichomonas NOT REPORTED Normal NONE [facility] Comment on above: Performed By: #### C DP, CP, LIP, TROPI, LIPRF, GLYHGB #### [facility] [employer] [address] [place] [address] Revenue Accounting Manager: Brandon Anaya MD Yeast LM Ql (Urine sed) NOT REPORTED Normal NONE [facility] Comment on above: Performed By: #### C DP, CP, LIP, TROPI, LIPRF, GLYHGB #### [facility] [place] [address] Revenue Accounting Manager: Brandon Anaya MD XR ABDOMEN (KUB) (SINGLE [...] Naga Browning MD 10/09/19 Final result Normal [facility] No evidence of bowel obstruction. [place], [place] EXAMINATION: ONE SUP INE XRAY VIEW(S) OF THE ABDOMEN 10/09/2019 7:17 pm COMPARISON: None. HISTORY: ORDERING SYSTEM PROVIDED HISTORY: r/o SBO TECHNOLOGIST PROVIDED HISTORY: r/o SBO Reason for Exam: port Supine FINDINGS: Nonspecific, nonobstructive bowel gas pattern with paucity of bowel gas. Atherosclerotic calcifications. Retained contrast in the urinary bladder. No acute osseous abnormality. [place], [place] Prieto, Mhpn Incoming Radiant Results From [facility] - 10/09/2019 7:35 PM EDT EXAMINATION: ONE [...] abnormality. IMPRESSION: No evidence of bowel obstruction. [facility] Aldosteroneon 07-02-2017 Aldosterone 4.8 ng/dL Normal [facility] Comment on above: Result Comment: (NOT [...] gender-specific referenceintervals for this test in the [employer] Laboratory Test Directory([employer]).Performed by [facility],[address] [place] [phone] ebp.[employer], Nik Rosas MD, Lab. DirectorPerformed at [facility] [address] [place], [place] [id number] ([phone] Performed By: #### C ORTI ####[facility] [place] [address] #### AAANDRES, AREN ####[facility] [place] [address] Renin Activityon 07-02-2017 Renin Activity 0.1 ng/mL/hr Normal [facility] Comment on above: Result Comment: (NOT E)INTERPRETIVE INFORMATION: Renin ActivityAdult, Normal sodium diet: Supine ................. 0.2-1.6 ng/mL/hr Upright ................ 0.5-4.0 ng/mL/hrChildren, Normal sodium diet, Supine: [place] (1-7 days) ..... 2.0-35.0 ng/mL/hr Cord blood [...] activity when angiotensinogen isdecreased.See Compliance Statement D: www.[employer]/CSPerformed by [facility],[address] [place] [phone] rzo.[employer], Nik Rosas MD, Lab. DirectorPerformed at [facility] [address] [facility], [place] [id number] ([phone] Performed By: #### Domenico ORTI ####[facility] [place], [place] [id number] #### MARYAM, AKIN ####[facility] [facility].[place], [place] [id number] Basic Metab w/rfx MGon 06-29 (cont.) Normal [facility] Comment on above: Result Comment: Aver age GFR for 70 or more years old: 75 mL/min/1.73sq mChronic Kidney Disease: <60 mL/min/1.73sq mKidney failure: <15 mL/min/1.73sq meGFR calculated using average adult body mass. Additional eGFR calculator available at:http://www.[employer]/multiple_crcl_2012.htmPerformed at [facility] [address] [place] [address] Performed By: #### C DP, BMPX, TROPI ####[address] [address] Anion gap 10 mmol/L Normal 9-17 [facility] Comment on above: Performed By: #### C DP, BMPX, TROPI ####[address] [address] Calcium 9.1 mg/dL Normal 8.6-10.4 [facility] Comment on above: Performed By: #### C DP, BMPX, TROPI ####[address] [address] Chloride 106 mmol/L Normal 98-107 [facility] Comment on above: Performed By: #### C DP, BMPX, TROPI ####[address] [address] CO2 26 mmol/L Normal 20-31 [facility] Comment on above: Performed By: #### C DP, BMPX, TROPI ####[address] [address] Creatinine 0.66 mg/dL Normal 0.50-0.90 [facility] Comment on above: Performed By: #### C DP, BMPX, TROPI ####[address] [place] [address] eGFR (non-black) mL/min/{1.73_m2} Normal >60 [facility] Comment on above: Performed By: #### C DP, BMPX, TROPI ####[address] [address] Glucose mass conc 104 mg/dL High 70-99 [facility] Comment on above: Performed By: #### C DP, BMPX, TROPI ####[address] [address] Potassium molar conc 4.1 mmol/L Normal 3.7-5.3 [facility] Comment on above: Performed By: #### C DP, BMPX, TROPI ####[address] [address] Sodium 142 mmol/L Normal 135-144 [facility] Comment on above: Performed By: #### C DP, BMPX, TROPI ####[address] [address] Urea nitrogen 13 mg/dL Normal 8-23 [facility] Comment on above: Performed By: #### C DP, BMPX, TROPI ####[address] [address] BUN/CRE Ratio NOT REPORTED Normal 9-20 [facility] Comment on above: Performed By: #### C DP, BMPX, TROPI ####[address] [address] Staging: NOT REPORTED Normal [facility] Comment on above: Performed By: #### C DP, BMPX, TROPI ####[address] [address] CBC with Diffon 06-29-2017 Abs. Basophil 0.00 k/uL Normal 0.0-0.2 [facility] Comment on above: Result Comment: Perf ormed at [facility] [address] [place] [address] Performed By: #### C DP, BMPX, TROPI ####[facility] [place] [address] Abs.Neutrophil (Seg) 3.80 k/uL Normal 1.3-9.1 [facility] Comment on above: Performed By: #### C DP, BMPX, TROPI ####[address] [address] Basophils/100 WBC Auto (Bld) 1 % Normal 0-2 [facility] Comment on above: Performed By: #### C DP, BMPX, TROPI ####[facility] [place] [address] Eosinophils 0.20 10*3/uL Normal 0.0-0.4 [facility] Comment on above: Performed By: #### C DP, BMPX, TROPI ####[facility] [place] [address] Eosinophils/100 leukocytes 2 % Normal 0-4 [facility] Comment on above: Performed By: #### C DP, BMPX, TROPI ####[facility] [place] [address] Erythrocyte distribution width Auto Ratio (RBC) 14.5 % Normal 11.5-14.9 [facility] Comment on above: Performed By: #### C DP, BMPX, TROPI ####[address] [address] Erythrocytes (RBC) 4.36 10*6/uL Normal 4.0-5.2 [facility] Comment on above: Performed By: #### C DP, BMPX, TROPI ####[facility] [place] [address] Hematocrit (HCT) 38.3 % Normal 36-46 [facility] Comment on above: Performed By: #### C DP, BMPX, TROPI ####[facility] [place] [address] Hemoglobin mass conc (Bld) 12.9 g/dL Normal 12.0-16.0 [facility] Comment on above: Performed By: #### C DP, BMPX, TROPI ####[address] [address] Lymphocytes 2.20 10*3/uL Normal 1.0-4.8 [facility] Comment on above: Performed By: #### C DP, BMPX, TROPI ####[address] [address] Lymphocytes/100 leukocytes 32 % Normal 24-44 [facility] Comment on above: Performed By: #### C DP, BMPX, TROPI ####[facility] [place] [address] MCH 29.5 pg Normal 26-34 [facility] Comment on above: Performed By: #### C DP, BMPX, TROPI ####[address] [address] MCHC mass conc (RBC) 33.6 g/dL Normal 31-37 [facility] Comment on above: Performed By: #### C DP, BMPX, TROPI ####[facility] [place] [address] MCV 87.8 fL Normal 80-100 [facility] Comment on above: Performed By: #### C DP, BMPX, TROPI ####[facility] [place] [address].[place] [address] Monocytes 0.50 10*3/uL Normal 0.1-1.3 [facility] Comment on above: Performed By: #### C DP, BMPX, TROPI ####[facility] [place] [address] Monocytes/100 leukocytes 8 % High 1-7 [facility] Comment on above: Performed By: #### C DP, BMPX, TROPI ####[address] [address] Neutrophil (Seg) 57 % Normal 36-66 [facility] Comment on above: Performed By: #### C DP, BMPX, TROPI ####[address] [address] Platelet mean volume (PMV) 8.5 fL Normal 6.0-12.0 [facility] Comment on above: Performed By: #### C DP, BMPX, TROPI ####[address] [address] Platelets 219 10*3/uL Normal 150-450 [facility] Comment on above: Performed By: #### C DP, BMPX, TROPI ####[facility] [place] [address] WBC (Leukocytes) 6.7 10*3/uL Normal 3.5-11.0 [facility] Comment on above: Performed By: #### C DP, BMPX, TROPI ####[address] [address] Auto Diff Performed NOT REPORTED Normal [facility] Comment on above: Performed By: #### C DP, BMPX, TROPI ####[address] [address] [facility] [place] [address] Erythrocyte morphology NOT REPORTED Normal [facility] Comment on above: Performed By: #### C DP, BMPX, TROPI ####[facility] [place] [address].[place] [address] Erythrocytes (RBC) NOT REPORTED Normal [facility] Comment on above: Performed By: #### C DP, BMPX, TROPI ####[address] [place] [address] Granulocytes/100 WBC (Bld) NOT REPORTED Normal 0.00-0.30 [facility] Comment on above: Performed By: #### C DP, BMPX, TROPI ####[address] [place] [address] Immature granulocytes #/vol (Bld) NOT REPORTED Normal 0 [facility] Comment on above: Performed By: #### C DP, BMPX, TROPI ####[address] [place] [address] Platelets NOT REPORTED Normal [facility] Comment on above: Performed By: #### C DP, BMPX, TROPI ####[address] [place] [address] WBC Morphology NOT REPORTED Normal [facility] Comment on above: Performed By: #### C DP, BMPX, TROPI ####[address] [place] [address] Troponinon 06-29-2017 Troponin I.cardiac mass conc Normal [facility] Comment on above: Result Comment: Refe rence Range: <0.03 Within reference range. 0.03-0.09 Possible myocardial damage.Repeat at appropriate intervals to rule out chronic elevation. >= 0.10 Indicative of myocardial damage.Patients with high levels of Biotin oral intake (i.e >5mg/day) may have falsely decreased Troponin T levels. Samples collected within 8 hours of biotin intake may require additional information for diagnosis.Performed at [address] [address] Performed By: #### C DP, BMPX, TROPI ####[address] [address] Troponin T.cardiac mass conc ug/L Normal <0.03 [facility] Comment on above: Result Comment: Trop onin T results cannot be compared to Troponin-I results. Performed By: #### C DP, BMPX, TROPI ####[address] [address] Troponin I.cardiac mass conc Normal [facility] Comment on above: Result Comment: Refe rence Range: <0.03 Within reference range. 0.03-0.09 Possible myocardial damage.Repeat at appropriate intervals to rule out chronic elevation. >= 0.10 Indicative of myocardial damage.Patients with high levels of Biotin oral intake (i.e >5mg/day) may have falsely decreased Troponin T levels. Samples collected within 8 hours of biotin intake may require additional information for diagnosis.Performed at [address] [address] Performed By: #### T ROPI ####[address] [address] Troponin T.cardiac mass conc ug/L Normal <0.03 [facility] Comment on above: Result Comment: Trop onin T results cannot be compared to Troponin-I results. Performed By: #### T ROPI ####[address] [address] XR CHEST (2 VW)on 06-29-2017 XR CHEST [...] by:FABIANA Oliverigned by:Zaire Dominguez MD//18Final result Normal [facility] Basic Metab w/rfx MGon 06-28 (cont.) Normal [facility] Comment on above: Result Comment: Aver age GFR for 70 or more years old: 75 mL/min/1.73sq mChronic Kidney Disease: <60 mL/min/1.73sq mKidney failure: <15 mL/min/1.73sq meGFR calculated using average adult body mass. Additional eGFR calculator available at:http://www.[employer]/multiple_crcl_2012.htmPerformed at [facility] [address] [place] [address] Performed By: #### C DP, BMPX ####[address] [place] [address] Anion gap 13 mmol/L Normal 9-17 [facility] Comment on above: Performed By: #### C DP, BMPX ####[facility] [place] [address] Calcium 8.7 mg/dL Normal 8.6-10.4 [facility] Comment on above: Performed By: #### C DP, BMPX ####[address] [place] [address] Chloride 106 mmol/L Normal 98-107 [facility] Comment on above: Performed By: #### C DP, BMPX ####[facility] [place] [address].[place] [address] CO2 22 mmol/L Normal 20-31 [facility] Comment on above: Performed By: #### C DP, BMPX ####[facility] [place] [address] Creatinine 0.53 mg/dL Normal 0.50-0.90 [facility] Comment on above: Performed By: #### C DP, BMPX ####[address] [address] eGFR (non-black) mL/min/{1.73_m2} Normal >60 [facility] Comment on above: Performed By: #### C DP, BMPX ####[address] [address] Glucose mass conc 168 mg/dL High 70-99 [facility] Comment on above: Performed By: #### C DP, BMPX ####[facility] [place] [address] Potassium molar conc 3.7 mmol/L Normal 3.7-5.3 [facility] Comment on above: Performed By: #### C DP, BMPX ####[facility] [place] [address] Sodium 141 mmol/L Normal 135-144 [facility] Comment on above: Performed By: #### C DP, BMPX ####[facility] [place] [address] Urea nitrogen 11 mg/dL Normal 8-23 [facility] Comment on above: Performed By: #### C DP, BMPX ####[facility] [facility] [place] [address] BUN/CRE Ratio NOT REPORTED Normal 9-20 [facility] Comment on above: Performed By: #### C DP, BMPX ####[facility] [place] [address] Staging: NOT REPORTED Normal [facility] Comment on above: Performed By: #### C DP, BMPX ####[facility] [place] [address] Basic Metabolic Profon 06-28 (cont.) Normal [facility] Comment on above: Result Comment: Aver age GFR for 70 or more years old: 75 mL/min/1.73sq mChronic Kidney Disease: <60 mL/min/1.73sq mKidney failure: <15 mL/min/1.73sq meGFR calculated using average adult body mass. Additional eGFR calculator available at:http://www.[employer]/multiple_crcl_2012.htmPerformed at [facility] [address] [place] [address] Performed By: #### C DP, BMP, TROPI, TSHX ####[facility] [place] [address] Anion gap 13 mmol/L Normal 9-17 [facility] Comment on above: Performed By: #### C DP, BMP, TROPI, TSHX ####[facility] [place] [address] Calcium 9.2 mg/dL Normal 8.6-10.4 [facility] Comment on above: Performed By: #### C DP, BMP, TROPI, TSHX ####[facility] [place] [address] Chloride 102 mmol/L Normal 98-107 [facility] Comment on above: Performed By: #### C DP, BMP, TROPI, TSHX ####[facility] [facility] [place] [address] CO2 26 mmol/L Normal 20-31 [facility] Comment on above: Performed By: #### C DP, BMP, TROPI, TSHX ####[facility] [place] [address] Creatinine 0.61 mg/dL Normal 0.50-0.90 [facility] Comment on above: Performed By: #### C DP, BMP, TROPI, TSHX ####[address] [address] eGFR (non-black) mL/min/{1.73_m2} Normal >60 [facility] Comment on above: Performed By: #### C DP, BMP, TROPI, TSHX ####[address] [address] Glucose mass conc 108 mg/dL High 70-99 [facility] Comment on above: Performed By: #### C DP, BMP, TROPI, TSHX ####[address] [address] Potassium molar conc 4.7 mmol/L Normal 3.7-5.3 [facility] Comment on above: Performed By: #### C DP, BMP, TROPI, TSHX ####[facility] [place] [address] Sodium 141 mmol/L Normal 135-144 [facility] Comment on above: Performed By: #### C DP, BMP, TROPI, TSHX ####[address] [address] Urea nitrogen 16 mg/dL Normal 8-23 [facility] Comment on above: Performed By: #### C DP, BMP, TROPI, TSHX ####[facility] [place] [address] BUN/CRE Ratio NOT REPORTED Normal 9-20 [facility] Comment on above: Performed By: #### C DP, BMP, TROPI, TSHX ####[facility] [place] [address] Staging: NOT REPORTED Normal [facility] Comment on above: Performed By: #### C DP, BMP, TROPI, TSHX ####[facility] [place] [address] CBC with Diffon 06-28-2017 Abs. Basophil 0.00 k/uL Normal 0.0-0.2 [facility] Comment on above: Result Comment: Perf ormed at [facility] [address] [place] [address] Performed By: #### C DP, BMPX ####[facility] [place] [address] Abs.Neutrophil (Seg) 5.50 k/uL Normal 1.3-9.1 [facility] Comment on above: Performed By: #### C DP, BMPX ####[address] [address] Basophils/100 WBC Auto (Bld) 1 % Normal 0-2 [facility] Comment on above: Performed By: #### C DP, BMPX ####[facility] [place] [address] Eosinophils 0.10 10*3/uL Normal 0.0-0.4 [facility] Comment on above: Performed By: #### C DP, BMPX ####[address] [address] Eosinophils/100 leukocytes 2 % Normal 0-4 [facility] Comment on above: Performed By: #### C DP, BMPX ####[facility] [place] [address] Erythrocyte distribution width Auto Ratio (RBC) 14.8 % Normal 11.5-14.9 [facility] Comment on above: Performed By: #### C DP, BMPX ####[facility] [place] [address] Erythrocytes (RBC) 4.47 10*6/uL Normal 4.0-5.2 [facility] Comment on above: Performed By: #### C DP, BMPX ####[facility] [place] [address] Hematocrit (HCT) 39.8 % Normal 36-46 [facility] Comment on above: Performed By: #### C DP, BMPX ####[facility] [place] [address] Hemoglobin mass conc (Bld) 13.3 g/dL Normal 12.0-16.0 [facility] Comment on above: Performed By: #### C DP, BMPX ####[facility] [facility] [place] [address] Lymphocytes 1.90 10*3/uL Normal 1.0-4.8 [facility] Comment on above: Performed By: #### C DP, BMPX ####[facility] [place] [address] Lymphocytes/100 leukocytes 23 % Low 24-44 [facility] Comment on above: Performed By: #### C DP, BMPX ####[facility] [place] [address] MCH 29.7 pg Normal 26-34 [facility] Comment on above: Performed By: #### C DP, BMPX ####[facility] [place] [address] MCHC mass conc (RBC) 33.3 g/dL Normal 31-37 [facility] Comment on above: Performed By: #### C DP, BMPX ####[facility] [place] [address] MCV 89.1 fL Normal 80-100 [facility] Comment on above: Performed By: #### C DP, BMPX ####[facility] [place] [address] Monocytes 0.50 10*3/uL Normal 0.1-1.3 [facility] Comment on above: Performed By: #### C DP, BMPX ####[address] [address] Monocytes/100 leukocytes 6 % Normal 1-7 [facility] Comment on above: Performed By: #### C DP, BMPX ####[address] [address] Neutrophil (Seg) 68 % High 36-66 [facility] Comment on above: Performed By: #### C DP, BMPX ####[address] [address] Platelet mean volume (PMV) 8.6 fL Normal 6.0-12.0 [facility] Comment on above: Performed By: #### C DP, BMPX ####[address] [address] Platelets 238 10*3/uL Normal 150-450 [facility] Comment on above: Performed By: #### C DP, BMPX ####[address] [address] WBC (Leukocytes) 8.0 10*3/uL Normal 3.5-11.0 [facility] Comment on above: Performed By: #### C DP, BMPX ####[facility] [place] [address] Auto Diff Performed NOT REPORTED Normal [facility] Comment on above: Performed By: #### C DP, BMPX ####[facility] [place] [address] Erythrocyte morphology NOT REPORTED Normal [facility] Comment on above: Performed By: #### C DP, BMPX ####[facility] [place] [address] [place] [address] Erythrocytes (RBC) NOT REPORTED Normal [facility] Comment on above: Performed By: #### C DP, BMPX ####[facility] [place] [address].[place] [address] Granulocytes/100 WBC (Bld) NOT REPORTED Normal 0.00-0.30 [facility] Comment on above: Performed By: #### C DP, BMPX ####[address] [address] Immature granulocytes #/vol (Bld) NOT REPORTED Normal 0 [facility] Comment on above: Performed By: #### C DP, BMPX ####[facility] [place] [address].[place] [address] Platelets NOT REPORTED Normal [facility] Comment on above: Performed By: #### C DP, BMPX ####[address] [address] WBC Morphology NOT REPORTED Normal [facility] Comment on above: Performed By: #### C DP, BMPX ####[address] [place] [address] Abs. Basophil 0.10 k/uL Normal 0.0-0.2 [facility] Comment on above: Result Comment: Perf ormed at [facility] [address] [place] [address] Performed By: #### C DP, BMP, TROPI, TSHX ####[facility] [facility] [place] [address] Abs.Neutrophil (Seg) 4.20 k/uL Normal 1.3-9.1 [facility] Comment on above: Performed By: #### C DP, BMP, TROPI, TSHX ####[facility] [place] [address].[place] [address] Basophils/100 WBC Auto (Bld) 1 % Normal 0-2 [facility] Comment on above: Performed By: #### C DP, BMP, TROPI, TSHX ####[facility] [place] [address] Eosinophils 0.20 10*3/uL Normal 0.0-0.4 [facility] Comment on above: Performed By: #### C DP, BMP, TROPI, TSHX ####[facility] [place] [address].[place] [address] Eosinophils/100 leukocytes 2 % Normal 0-4 [facility] Comment on above: Performed By: #### C DP, BMP, TROPI, TSHX ####[facility] [place] [address] Erythrocyte distribution width Auto Ratio (RBC) 14.7 % Normal 11.5-14.9 [facility] Comment on above: Performed By: #### C DP, BMP, TROPI, TSHX ####[facility] [place] [address] Erythrocytes (RBC) 4.38 10*6/uL Normal 4.0-5.2 [facility] Comment on above: Performed By: #### C DP, BMP, TROPI, TSHX ####[address] [address] Hematocrit (HCT) 38.7 % Normal 36-46 [facility] Comment on above: Performed By: #### C DP, BMP, TROPI, TSHX ####[address] [address] Hemoglobin mass conc (Bld) 12.9 g/dL Normal 12.0-16.0 [facility] Comment on above: Performed By: #### C DP, BMP, TROPI, TSHX ####[address] [address] Lymphocytes 2.60 10*3/uL Normal 1.0-4.8 [facility] Comment on above: Performed By: #### C DP, BMP, TROPI, TSHX ####[address] [address] Lymphocytes/100 leukocytes 34 % Normal 24-44 [facility] Comment on above: Performed By: #### C DP, BMP, TROPI, TSHX ####[address] [address] MCH 29.6 pg Normal 26-34 [facility] Comment on above: Performed By: #### C DP, BMP, TROPI, TSHX ####[address] [address] MCHC mass conc (RBC) 33.4 g/dL Normal 31-37 [facility] Comment on above: Performed By: #### C DP, BMP, TROPI, TSHX ####[address] [address] MCV 88.4 fL Normal 80-100 [facility] Comment on above: Performed By: #### C DP, BMP, TROPI, TSHX ####[facility] [place] [address].[place] [address] Monocytes 0.60 10*3/uL Normal 0.1-1.3 [facility] Comment on above: Performed By: #### C DP, BMP, TROPI, TSHX ####[address] [address] Monocytes/100 leukocytes 8 % High 1-7 [facility] Comment on above: Performed By: #### C DP, BMP, TROPI, TSHX ####[address] [address] Neutrophil (Seg) 55 % Normal 36-66 [facility] Comment on above: Performed By: #### C DP, BMP, TROPI, TSHX ####[facility] [place] [address] Platelet mean volume (PMV) 8.6 fL Normal 6.0-12.0 [facility] Comment on above: Performed By: #### C DP, BMP, TROPI, TSHX ####[facility] [place] [address] Platelets 229 10*3/uL Normal 150-450 [facility] Comment on above: Performed By: #### C DP, BMP, TROPI, TSHX ####[facility] [place] [address] WBC (Leukocytes) 7.7 10*3/uL Normal 3.5-11.0 [facility] Comment on above: Performed By: #### C DP, BMP, TROPI, TSHX ####[address] [place] [address] Auto Diff Performed NOT REPORTED Normal [facility] Comment on above: Performed By: #### C DP, BMP, TROPI, TSHX ####[facility] [facility] [place] [address] Erythrocyte morphology NOT REPORTED Normal [facility] Comment on above: Performed By: #### C DP, BMP, TROPI, TSHX ####[facility] [place] [address].[place] [address] Erythrocytes (RBC) NOT REPORTED Normal [facility] Comment on above: Performed By: #### C DP, BMP, TROPI, TSHX ####[facility] [place] [address].[place] [address] Granulocytes/100 WBC (Bld) NOT REPORTED Normal 0.00-0.30 [facility] Comment on above: Performed By: #### C DP, BMP, TROPI, TSHX ####[facility] [place] [address] Immature granulocytes #/vol (Bld) NOT REPORTED Normal 0 [facility] Comment on above: Performed By: #### C DP, BMP, TROPI, TSHX ####[facility] [place] [address].[place] [address] Platelets NOT REPORTED Normal [facility] Comment on above: Performed By: #### C DP, BMP, TROPI, TSHX ####[facility] [place] [address].[place] [address] WBC Morphology NOT REPORTED Normal [facility] Comment on above: Performed By: #### C DP, BMP, TROPI, TSHX ####[facility] [place] [address] Cortisolon 06-28-2017 Cortisol 4.7 ug/dL Normal 2.7-18.4 [facility] Comment on above: Result Comment: Lukasz isol Reference Range: AM 6.0-18.4 PM 2.7-10.5Performed at [facility] [address] [place] [address] Performed By: #### C ORTI ####[address] [address] #### AALD, AREN ####[address] [address] Collection Info. NOT REPORTED Normal [facility] Comment on above: Performed By: #### C ORTI ####[address] [address] #### AALD, AREN ####[address] [place] [address] Renin Activityon 06-28-2017 Comment: NOT REPORTED Normal [facility] Comment on above: Performed By: #### C ORTI ####[address] [address] #### AALD, AREN ####[address] [address] TSH w/reflex to FT4on 2017 Thyroid stimulating hormone (TSH) 2.65 m[IU]/L Normal 0.30-5.00 [facility] Comment on above: Result Comment: Perf ormed at [facility] [address] [place] [address] Performed By: #### C DP, BMP, TROPI, TSHX ####[facility] [place] [address] Troponinon 06-28-2017 Troponin I.cardiac mass conc Normal [facility] Comment on above: Result Comment: Refe rence Range: <0.03 Within reference range. 0.03-0.09 Possible myocardial damage.Repeat at appropriate intervals to rule out chronic elevation. >= 0.10 Indicative of myocardial damage.Patients with high levels of Biotin oral intake (i.e >5mg/day) may have falsely decreased Troponin T levels. Samples collected within 8 hours of biotin intake may require additional information for diagnosis.Performed at [facility] [address] [place] [address] Performed By: #### T ROPI ####[address] [address] Troponin T.cardiac mass conc ug/L Normal <0.03 [facility] Comment on above: Result Comment: Trop onin T results cannot be compared to Troponin-I results. Performed By: #### T ROPI ####[address] [place] [address] Troponin I.cardiac mass conc Normal [facility] Comment on above: Result Comment: Refe rence Range: <0.03 Within reference range. 0.03-0.09 Possible myocardial damage.Repeat at appropriate intervals to rule out chronic elevation. >= 0.10 Indicative of myocardial damage.Patients with high levels of Biotin oral intake (i.e >5mg/day) may have falsely decreased Troponin T levels. Samples collected within 8 hours of biotin intake may require additional information for diagnosis.Performed at [address] [place] [address] Performed By: #### T ROPI ####[address] [place] [address] Troponin T.cardiac mass conc ug/L Normal <0.03 [facility] Comment on above: Result Comment: Trop onin T results cannot be compared to Troponin-I results. Performed By: #### T ROPI ####[address] [address] Troponin I.cardiac mass conc Normal [facility] Comment on above: Result Comment: Refe rence Range: <0.03 Within reference range. 0.03-0.09 Possible myocardial damage.Repeat at appropriate intervals to rule out chronic elevation. >= 0.10 Indicative of myocardial damage.Patients with high levels of Biotin oral intake (i.e >5mg/day) may have falsely decreased Troponin T levels. Samples collected within 8 hours of biotin intake may require additional information for diagnosis.Performed at [address] [address] Performed By: #### C DP, BMP, TROPI, TSHX ####[address] [address] Troponin T.cardiac mass conc ug/L Normal <0.03 [facility] Comment on above: Result Comment: Trop onin T results cannot be compared to Troponin-I results. Performed By: #### C DP, BMP, TROPI, TSHX ####[address] [address] UA w/Reflex Cultureon 2017 Acetaminophen mass conc Negative Normal NEG [facility] Comment on above: Performed By: #### U AX ####[address] [address] Bilirubin (direct) Negative Normal NEG [facility] Comment on above: Performed By: #### U AX ####[address] [address] Comment Microscopic exam not performed based on chemical results unless requested in Normal [facility] Comment on above: Result Comment: orig inal order.Performed at [address] [address] Performed By: #### U AX ####[address] [address] Hemoglobin mass conc (Bld) Negative Normal NEG [facility] Comment on above: Performed By: #### U AX ####[facility] [place] [address] [place] [address] Nitrite,Ur Negative Normal NEG [facility] Comment on above: Performed By: #### U AX ####[facility] [place] [address], [place] [address] Turbidity CLEAR Normal CLEAR [facility] Comment on above: Performed By: #### U AX ####[facility] [place] [address] [place] [address] Urine, color YELLOW Normal YEL [facility] Comment on above: Performed By: #### U AX ####[address] [place] [address] Urine, glucose presence Negative Normal NEG [facility] Comment on above: Performed By: #### U AX ####[address] [place] [address] Urine, leukocyte esterase presence Negative Normal NEG [facility] Comment on above: Performed By: #### U AX ####[address] [place] [address] Urine, pH 5.5 [pH] Normal 5.0-8.0 [facility] Comment on above: Performed By: #### U AX ####[address] [place] [address] Urine, protein presence Negative Normal NEG [facility] Comment on above: Performed By: #### U AX ####[address] [place] [address] Urine, specific gravity 1.011 Normal 1.000-1.030 [facility] Comment on above: Performed By: #### U AX ####[address] [place] [address] Urobilinogen,Ur Normal Normal NORM [facility] Comment on above: Performed By: #### U AX ####[facility] [place] [address] Vital Signs Date Time Vital Sign Value Performing Clinician Facility 04-08-2023 10:25-0500 Body height 162.56 cm MD Adina Bucnh Work Phone: [facility] 04-08-2023 10:25-0500 Body mass index (BMI) [Ratio] 26.7 kg/m2 MD Adina Bunch Work Phone: [facility] 04-08-2023 10:25-0500 Body weight 70.76 kg MD Adina Bunch Work Phone: [facility] 10-16-2019 15:45-0400 BP Diastolic 64 mm[Hg] [place], [place] 10-16-2019 15:45-0400 BP Systolic 154 mm[Hg] [place] 10-16-2019 08:25-0400 Body Temperature 98.01 [degF] [place], [place] 10-16-2019 08:25-0400 Pulse (Heart Rate) 70 /min [place], [place] 10-16-2019 08:25-0400 Pulse Oximetry 97 % [place], [place] 10-16-2019 08:25-0400 Respiratory Rate 20 /min [place] 10-16-2019 06:15-0400 BMI (Body Mass Index) 25.51 kg/m2 [place], [place] 10-16-2019 06:15-0400 Body weight 67.4 kg [place] 10-15-2019 15:22-0400 Height 162.6 cm [place] 10-13-2019 16:07-0400 Respiratory rate NOT REPORTED DUGLAS [facility] Comment on above: Performed By: #### CDP, CP, LIP, TROPI, LIPRF, GLYHGB #### [facility] [id number] Revenue Accounting Manager: Brandon Anaya MD 10-13-2019 14:24-0400 Respiratory rate NOT REPORTED Yoon [facility] [place] [place] Encounters Encounter Date Encounter Type Care Provider Facility Start: 04-24-2023 End: 04-24-2023 ambulatory Anju Lees Facility:[facility] Start: 04-17-2023 End: 04-17-2023 ambulatory CURRY A PETITTI Not Available Start: 04-17-2023 End: 04-17-2023 ambulatory MD Adina Bunch Work Phone: [facility] Work Phone: Start: 04-17-2023 End: 04-17-2023 Patient encounter procedure MD Adina Bunch Work Phone: [facility] Work Phone: Start: 04-08-2023 End: 04-08-2023 ambulatory MD Adina Bunch Work Phone: [facility] Work Phone: Start: 04-08-2023 End: 04-08-2023 Patient encounter procedure MD Adina Bunch Work Phone: [facility] Work Phone: Start: 04-08-2023 End: 04-08-2023 ambulatory MD Adina Bunch Work Phone: [facility] Work Phone: Start: 04-08-2023 End: 04-08-2023 Patient encounter procedure MD Adina Bunch Work Phone: [facility] Start: 02-13-2023 End: 02-13-2023 ambulatory DENISHA [...] and management of inpatient DUGLAS S JUDIE [facility] Start: 10-09-2019 End: 10-16-2019 Evaluation and management of inpatient Yoon Barnhart Rogelio Work Phone: [facility] Comment on above: Abdominal aortic ane urysm (AAA) without rupture (HCC) (Primary Dx); Acute low back pain, unspecified back pain laterality, unspecified whether sciatica present; Vertigo; Nausea and vomiting, intractability of vomiting not specified, unspecified vomiting type; Hypertensive urgency Start: 06-27-2017 End: 06-29-2017 Evaluation and management of inpatient ADINA M Evonne [facility] Procedures Date Procedure Procedure Detail Performing [...] Start: 10-16-2019 Glucose blood reagen t strip DGULAS JUDIE Start: 10-16-2019 DISCHARGE PATIENT RANVI R [...] Start: 10-11-2019 Glucose blood reagen t strip Udglas S Judie Work Phone: Start: 10-11-2019 Blood [...] DUGLAS JUDIE Start: 10-09-2019 IP CONSULT TO REMELT PAN TANK OPERATOR AL MEDICINE DUGLAS JUDIE Start: 10-09-2019 Ct [...] Start: 10-09-2019 Assay of troponin quantitative Joel Melotn Work Phone: Start: 10-09-2019 Blood count complete [...] HO Y Start: 06-28-2017 IP CONSULT TO REMELT PAN T[employer] OPERATOR AL MEDICINE ADINA HOY Start: 06-28-2017 EKG [...] hand XR hand RT min 3V* [facility] Start: 04-08-2023 XR Hand - right GE [address] [facility] Start: 10-14-2020 Creatinine measurement Creatinine mo nitoring [place], [place] Start: 10-14-2020 Potassium monitoring Potassium monit oring [place] Start: 10-26-2019 Influenza vaccination Flu vaccine (# 1) [place] Start: 08-16-2018 Annual Wellness Visi t (AWV) Annual Wellness Visit (AWV) [place] Start: 05-23-2008 Pneumococcal 65+ yea rs Vaccine (1 of 1 - PPSV23) Pneumococcal 65+ years Vaccine (1 of 1 - PPSV23) [place] Start: 05-23-1998 Screening for osteoporosis DEXA (modify frequency per FRAX score) [place] Start: 05-23-1993 Shingles Vaccine (1 of 2) Shingles Vaccine (1 of 2) [place] Start: 05-23-1962 DTaP/Tdap/Td vaccine (1 - Tdap) DTaP/Tdap/Td vaccine (1 - Tdap) [place] End: 10-11-2019 ALBUMIN, CSF ALBUMIN, CSF Lab Routine One Time for 1 Occurrences starting 10/11/2019 until 10/11/2019 [place] Comment on above: One Time for 1 Occur rences starting 10/11/2019 until 10/11/2019 Basic Metabolic Pane l w/ Reflex to MG Basic Metabolic Panel w/ Reflex to MG Lab Routine Daily until discontinued starting 10/10/2019, 7 completed [place] Comment on above: Daily until disconti nued starting 10/10/2019, 7 completed CBC auto differential CBC auto d ifferential Lab Routine Daily until discontinued starting 10/10/2019, 7 completed [place] Comment on above: Daily until disconti nued starting 10/10/2019, 7 completed Culture, Blood 1 [place], [place] End: 10-16-2019 Culture, Urine Culture, Urine Microbiology Routine One Time for 1 Occurrences starting 10/16/2019 until 10/16/2019 [place] Comment on above: One Time for 1 Occur rences starting 10/16/2019 until 10/16/2019 Culture, Urine Culture, Urine Microbiology [employer] Label Print 10/16/2019 1:08 PM EDT [place] Nebulizer therapy HHN Treatment Respiratory Care Routine As Needed until discontinued starting 10/11/2019 [place] Comment on above: As Needed until disc ontinued starting 10/11/2019 Oxygen therapy [[facility] Data Set] Initiate Oxygen Therapy Protocol Respiratory Care Routine Daily until discontinued starting 10/09/2019 [place] Comment on above: Daily until disconti nued starting 10/09/2019 POCT Glucose [place] Comment on above: As Needed until disc ontinued starting 10/09/2019 4X Daily (AC & HS) u ntil discontinued starting 10/09/2019 Immunizations Immunization Date Immunization Notes Care Provider [facility] 12-20-2020 COVID-19 mRNA-1273 (Ramila) MD Adina Bunch Work Phone: [facility] 04-21-2020 COVID-19 mRNA-1273 (Ramila) MD Adina Bunch Work Phone: [facility] 03-24-2020 COVID-19 mRNA-1273 (Ramila) MD Adina Bunch Work Phone: [facility] Payers Date Payer Category Payer Medicare [id number] 2014 Medicare [id number] 1961 Medicare [id number] 1961 Medicare [id number] 1959 Self-pay 1943 Unknown [id number] 2.16.8 [id number] 1943 Unknown [id number] 2.16.84 [id number] 1943 Unknown [id number] 2.16.84 0.1.032910.3.579.2.593 1943 Unknown [id number] 2.16.84 [id number] 1943 Unknown [id number] 2.16.84 0.1.223717.3.579.2.593 1943 Unknown [id number] 2.16.84 0.1.122273.3.579.2.593 1943 Unknown [id number] 2.16.84 0.1.058224.3.579.2.1259 1943 Unknown [id number] 2.16.840 .1.127593.3.579.2.1259 1943 Unknown [id number] 2.16.840 .1.730821.3.579.2.1259 1943 Unknown [id number] 2.16.840. 1.237793.3.579.2.1259 1943 Unknown [id number] 2.16.840. 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 History and physical note 06-15-2020 Note Date & Type Note Facility 06-15-2020 Note [id number] 5#1.00CD:127 [facility] Clinical Note 06-15-2020 Note Date & [...] you have a fever over 100 degrees [facility] History and physical note 05-18-2020 Note Date & Type Note Facility 05-18-2020 Note [id number] 2#1.00CD:127 [facility] Clinical Note 05-18-2020 Note Date & [...] you have a fever over 100 degrees [facility] Evaluation note Note Date & Type Note Facility Evaluation note Diagnosis Onset Date Trigger finger, right middle finger acute Trigger finger, right ring finger acute [facility] [facility] Work Phone: Summary Purpose Family History No Family History Records Found Relationship Condition Age at Onset Recorded Date/T janki father Malignant neoplasm of lung Unknown Not Specified Myocardial infarction Unknown Advance Directives No Advanced Directives Records FoundDocuments on File Type Date Recorded 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 Expl 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 ACP-Advance Directive ACP-Power of Painter Airbrush Latest Code Status on File Code Status [...] Contact Information Primary Emergency Contact: Deep Maynard [facility] Relation: Spouse Past Surgical History: Past Surgical [...] Assisted Dressing Assisted Toileting Assisted Feeding Assisted Floor Sander Independent Med Delivery whole Wound Care Documentation [...] NOT a DME order): n/a Other Treatments: care home, home health aide services Patient's personal belongings (please select all that are sent with patient): patient has all belongings RN SIGNATURE: CASE MANAGEMENT/SOCIAL WORK SECTION Inpatient Status Date: 10-09-2019 Readmission Risk Assessment Score: Readmission Risk Risk of Unplanned Readmission: 12 Discharging to Facility/ Agency Name: [facility] Address: Phone: Fax: Dialysis Facility (if applicable) Name: Address: Dialysis Schedule: Phone: Fax: Regulatory Affairs Portfolio Leader/Roving Frame Tender signature: EDT ICIAN SECTION Prognosis: Fair Condition [...] size monitoring with PCP F/u urologist at [facility] in 1 week for lowe and void trial Take docusate 100 mg daily and miralax 17 g daily. documented in this encounter History of Present Illness * Tami Ni RN - 10/16/2019 5:51 PM EDT Surface Room Shop Optician discharged patient @ 1745 by wheelchair off unit with . Surface Room Shop Optician went over all discharge paperwork and patient [...] who was admitted as a transfer from [facility] 10/09/2019 where she presented with gradually [...] to ensure the accuracy of this automated cold roll inspector, some errors in cold roll inspector may have occurred. * Michelle Pelletier MD - 10/16/2019 11:07 AM EDT [facility] Internal Medicine Teaching Residency Program Inpatient Daily Progress Note Patient: Zachary Maynard Date of : 1945 Acct: [id number] Room: Admit date: 10/09/2019 Today's date: 10/16/19 [...] of COPD, primary hypertension was transferred from [facility] for management of infrarenal abdominal aortic aneurysm and for vascular consultation. States she started having lower back pain since . Describes the pain as constant, sharp, 10out of 10 in intensity associated with nausea. Patient went to the emergency department at [facility] to have hypertensive emergency with systolics [...] Q4H PRN hydrALAZINE, 10 mg, Q6H PRN bynnzypitp-ajylsnbthtzrg-rbwiyriw, 1 tablet, Q4H PRN sodium chloride flush, [...] Dwayne Hanson MD Internal Medicine Resident, PGY-1 [facility]; [place], [place] 10/16/2019, 11:07 AM I have discussed [...] 9:31 AM EDT [facility] - Progress Note Today's Date [...] culture. Medical Decision Making/Summary/Discussion:10/16/2019 Infection Control Recommendations [place] Precautions Antimicrobial Stewardship Recommendations Discontinuation of therapy [...] of . INITIAL HISTORY: Patient transferred from [facility] on 10-09-19 because of low back pain and findings of an infrarenal abdominal aortic aneurysm. Developed onset of back pain on 10-07-19, associated with nausea. She was evaluated at [facility] and found to have a hypertensive emergency with systolic pressures over [address] showed a 3.5 cm infrarenal aortic aneurysm. Her BP was controlled with Cardene drip and the patient was transferred to [facility]. At [facility] patient had signs of hypoxia, and [...] file Gets together: Not on file Attends baptist service: Not on file Active member of [...] Initial FINDINGS: CTA NECK: AORTIC ARCH/ARCH VESSELS: Lrkv-sl-zqikcrst atherosclerotic plaque at the arch arch and [...] No acute pulmonary process. Emphysema. Medical Decision Wtdlui-Lynqcbeq-Hmmgp: 10/15/2019 12:10 AM - Blanco Moreau Incoming Lab Results From [facility] Specimen Information: Blood Component Collected Lab Specimen Description 10/12/2019 2:17 PM [employer] .BLOOD Special Requests 10/12/2019 2:17 PM [employer] back lt arm 3ml Culture 10/12/2019 2:17 PM [employer] NO GROWTH 3 DAYS Medical Decision Making-Other: Note: Labs, medications, radiologic studies were reviewed with personal review of films Large amounts of data were reviewed Discussed with nursing Staff, corporate event planner Infection Control and Prevention measures reviewed [...] Patel RN - 10/16/2019 6:15 AM EDT Surface Room Shop Optician bladder scanned patient and bladder scan shows 554 mL, automotive service writer straight cath patient and was only able to get 100 mL of urine out due to urine stop flowing due to catheter being clogged with mucus, patient stated she do not want to try again at this time and that she will try again later. Will continue to monitor. Sang Patle RN * Sailaja Durán RN - 10/15/2019 [...] loss Fluid Accumulation: 1 - Mild Extremities General Repairer Strength: Not Performed Estimated Daily Nutrient Needs: Energy (kcal): 1.3-1.4 ~> 3762-4680 kcals/d; Weight Used for Energy Requirements: Admission Protein (g): 1.2-1.4 ~> 65-76 gms/d; Weight Used for Protein Requirements: [place] Nutrition Related Findings: Na 131 Wounds: None Current Nutrition Therapies: DIET GENERAL; Anthropometric Measures: Height: 5' 4 (162.6 cm) Current Body Weight: 154 lb (69.9 kg) Admission Body Weight: 154 lb (69.9 kg) Usual Body Weight: 160 lb (72.6 kg)(per pt's ) [place] Body Weight: 120 lbs; % [place] Body Weight 128.3 % BMI: 26.4 BMI [...] Discharge Planning: Too soon to determine Contact: [phone] * Dwayne Hanson MD - 10/15/2019 3:09 PM EDT [facility] Internal Medicine Teaching Residency Program Inpatient Daily Progress Note Patient: Zachary Maynard Date of : 1945 Acct: [id number] Room: Admit date: 10/09/2019 Today's date: 10/15/19 [...] of COPD, primary hypertension was transferred from [facility] for management of infrarenal abdominal aortic aneurysm and for vascular consultation. States she started having lower back pain since . Describes the pain as constant, sharp, 10out of 10 in intensity associated with nausea. Patient went to the emergency department at [facility] found to have hypertensive emergency with systolics [...] Q4H PRN hydrALAZINE, 10 mg, Q6H PRN bwyjjwzmrt-kagcduwkfjdto-fuoosfps, 1 tablet, Q4H PRN sodium chloride flush, [...] Dwayne Hanson MD Internal Medicine Resident, PGY-1 [facility]; [place], [place] 10/15/2019, 3:09 PM Associated attestation - [...] - 10/15/2019 3:09 PM EDT Occupational Therapy [facility] Occupational Therapy Not Seen Note DATE: [...] appropriate. Winifred Foster, OT/S * Sho Tierney IC ENGINEER - 10/15/2019 1:55 PM EDT Physical Therapy Facility/Department: [facility] CAR 2 Daily Treatment Note NAME: [...] place: No Restraints: all rail up when IC ENGINEER left, okay with pt Therapy Time Individual Concurrent Group Co-treatment Time In 1326 Time Out 1342 Minutes 16 Timed Code Treatment Minutes: 16 Minutes Sho Tierney PTA * Willie Garcia, PANTS PRESSER AUTOMATIC - AUTO CLAIM REPRESENTATIVE - 10/15/2019 10:38 AM EDT Neurology Nurse [...] who was admitted as a transfer from [facility] 10/09/2019 where she presented with gradually [...] to ensure the accuracy of this automated cold roll inspector, some errors in cold roll inspector may have occurred. * Sailaja Durán RN - 10/15/2019 9:00 AM EDT Pt straight cathed for 850 cc clear yellow urine. Tolerated well. Will continue to monitor. * Alfonso Kendrick MD - 10/15/2019 8:38 AM EDT [facility] - Progress Note Today's Date [...] antibiotics Medical Decision Making/Summary/Discussion:10/15/2019 Infection Control Recommendations [place] Precautions Antimicrobial Stewardship Recommendations Discontinuation of therapy [...] of . INITIAL HISTORY: Patient transferred from [facility] on 10-09-19 because of low back pain and findings of an infrarenal abdominal aortic aneurysm. Developed onset of back pain on 10-07-19, associated with nausea. She was evaluated at [facility] and found to have a hypertensive emergency with systolic pressures over [address] showed a 3.5 cm infrarenal aortic aneurysm. Her BP was controlled with Cardene drip and the patient was transferred to [facility]. At [facility] patient had signs of hypoxia, and [...] file Gets together: Not on file Attends baptist service: Not on file Active member of [...] Initial FINDINGS: CTA NECK: AORTIC ARCH/ARCH VESSELS: Ltag-ci-kjhoachs atherosclerotic plaque at the arch arch and [...] No acute pulmonary process. Emphysema. Medical Decision Cioffe-Xdfhtadf-Qwuii: 10/15/2019 12:10 AM - [facility] Incoming Lab Results From [facility] Specimen Information: Blood Component Collected Lab Specimen Description 10/12/2019 2:17 PM [employer] .BLOOD Special Requests 10/12/2019 2:17 PM [employer] back lt arm 3ml Culture 10/12/2019 2:[address] [facility] NO GROWTH 3 DAYS Medical Decision Making-Other: Note: Labs, medications, radiologic studies were reviewed with personal review of films Large amounts of data were reviewed Discussed with nursing Staff, corporate event planner Infection Control and Prevention measures reviewed [...] Hanson MD - 10/14/2019 1:29 PM EDT [facility] Internal Medicine Teaching Residency Program Inpatient Daily Progress Note Patient: Zachary Maynard Date of : 1945 Acct: [id number] Room: Admit date: 10/09/2019 Today's date: 10/14/19 [...] of COPD, primary hypertension was transferred from [facility] for management of infrarenal abdominal aortic aneurysm and for vascular consultation. States she started having lower back pain since . Describes the pain as constant, sharp, 10out of 10 in intensity associated with nausea. Patient went to the emergency department at [facility] to have hypertensive emergency with systolics [...] Q4H PRN hydrALAZINE, 10 mg, Q6H PRN znqmndmlog-tgdktixibdtyq-hrfvxpna, 1 tablet, Q4H PRN sodium chloride flush, [...] Dwayne Hanson MD Internal Medicine Resident, PGY-1 [facility]; [place], [place] 10/14/2019, 1:29 PM Associated attestation - [...] by Michelle Pelletier MD * Jose Willie, PANTS PRESSER AUTOMATIC - AUTO CLAIM REPRESENTATIVE - 10/14/2019 11:22 AM EDT Neurology Nurse [...] who was admitted as a transfer from [facility] 10/09/2019 where she presented with gradually [...] to ensure the accuracy of this automated cold roll inspector, some errors in cold roll inspector may have occurred. * Alfonso Kendrick MD - 10/14/2019 10:10 AM EDT [facility] - Progress Note Today's Date [...] antibiotics Medical Decision Making/Summary/Discussion:10/14/2019 Infection Control Recommendations [place] Precautions Antimicrobial Stewardship Recommendations Discontinuation of therapy [...] of . INITIAL HISTORY: Patient transferred from [facility] on 10-09-19 because of low back pain and findings of an infrarenal abdominal aortic aneurysm. Developed onset of back pain on 10-07-19, associated with nausea. She was evaluated at [facility] and found to have a hypertensive emergency with systolic pressures over [address] showed a 3.5 cm infrarenal aortic aneurysm. Her BP was controlled with Cardene drip and the patient was transferred to [facility]. At [facility] patient had signs of hypoxia, and [...] file Gets together: Not on file Attends baptist service: Not on file Active member of [...] Initial FINDINGS: CTA NECK: AORTIC ARCH/ARCH VESSELS: Iedp-rc-zwwaksqo atherosclerotic plaque at the arch arch and [...] No acute pulmonary process. Emphysema. Medical Decision [place]-Wrktsebx-Ezdsf: Medical Decision Making-Other: Note: Labs, medications, radiologic studies were reviewed with personal review of films Large amounts of data were reviewed Discussed with nursing Staff, corporate event planner Infection Control and Prevention measures reviewed [...] Ferris RN - 10/13/2019 10:40 PM EDT Surface Room Shop Optician contacted internal med regarding pt complaining of lower abdominal pain. States she has to void but is unable to. Bladder scanned her just now and >999. New order for one time straight cath. Straight cath completed at 2315. 900ml clear, yellow urine out with 63ml residual. Will continue to monitor. 0430- Surface Room Shop Optician contacted internal med regarding pt unable to void. Bladder scan shows 490. One time straight cath order placed at 0610. New bladder scan shows 571. Cath completed at 0645. 550ml clear, yellow urine out with 16ml residual. Will continue to monitor. Internal med also made aware that pt has not had bowel movement since admission. Mirilax administered. Bowel sounds active. * Linda Adhikari, IC ENGINEER - 10/13/2019 4:16 PM EDT Physical Therapy Facility/Department: [facility] 2 Daily Treatment Note NAME: Zachary Maynard [...] Hanson MD - 10/13/2019 9:30 AM EDT [facility] Internal Medicine Teaching Residency Program Inpatient Daily Progress Note Patient: Zachary Maynard Date of : 1945 Acct: [id number] Room: Admit date: 10/09/2019 Today's date: 10/13/19 Number of days in the hospital: 4 SUBJECTIVE Admitting Diagnosis: Aneurysm of infrarenal abdominal aorta (HCC) CC: Midline Lower Back Pain Pt examined at bedside. Chart & results reviewed. BP increased overnight - In Flight Crew Member Door Person gave Norvasc and started IV Hydralazine early [...] of COPD, primary hypertension was transferred from [facility] for management of infrarenal abdominal aortic aneurysm and for vascular consultation. States she started having lower back pain since . Describes the pain as constant, sharp, 10out of 10 in intensity associated with nausea. Patient went to the emergency department at [facility] to have hypertensive emergency with systolics [...] Q4H PRN hydrALAZINE, 10 mg, Q6H PRN ndkyjfucth-bgggyiwbghcrc-kptduxdi, 1 tablet, Q4H PRN sodium chloride flush, [...] R Valentin, MD Internal Medicine Resident, PGY-1 [facility]; [place], [place] 10/13/2019, 9:31 AM Associated attestation - [...] problems. * Overall course ; show no manager change time. Headache is improved Blood pressure improved Ultrasound renal duplex, concerning for unilateral renal artery stenosis Patient very sleepy Has tenderness in lower back X-ray lumbar spine done at the time of admission, concerning for possible fracture Ordering MRI lumbar spine Electronically signed by Michelle Pelletier MD * Viry Morelos, FLAQUITO - AUTO CLAIM REPRESENTATIVE - 10/13/2019 8:44 AM EDT NEUROLOGY INPATIENT [...] negative for acute changes -IV Depacon 500mg G0hoaoh x3 doses -Continued blood pressure management as [...] to ensure the accuracy of this automated cold roll inspector, some errors in cold roll inspector may have occurred. * Alfonso Kendrick MD - 10/13/2019 7:57 AM EDT [facility] - Progress Note Today's Date and Time: 10/13/2019, 7:57 AM Impression : Fever, etiology to be determined Intermittent Headaches, most likely side effect of the various medications being given for control of HTN. No apparent meningitis Low back pain Aneurysm infrarenal abdominal aorta Centrilobular emphysema Allergy to quinolones, sulfa Recommendations: Monitor off antibiotics Medical Decision Making/Summary/Discussion:10/13/2019 Infection Control Recommendations [place] Precautions Antimicrobial Stewardship Recommendations Discontinuation of therapy [...] of . INITIAL HISTORY: Patient transferred from [facility] on 10-09-19 because of low back pain and findings of an infrarenal abdominal aortic aneurysm. Developed onset of back pain on 10-07-19, associated with nausea. She was evaluated at [facility] and found to have a hypertensive emergency with systolic pressures over [address] showed a 3.5 cm infrarenal aortic aneurysm. Her BP was controlled with Cardene drip and the patient was transferred to [facility]. At [facility] patient had signs of hypoxia, and [...] file Gets together: Not on file Attends baptist service: Not on file Active member of [...] Initial FINDINGS: CTA NECK: AORTIC ARCH/ARCH VESSELS: Gxic-fu-kbmanzxq atherosclerotic plaque at the arch arch and [...] No acute pulmonary process. Emphysema. Medical Decision [place]-Xmrvrhwx-Bmdab: Medical Decision Making-Other: Note: Labs, medications, radiologic studies were reviewed with personal review of films Large amounts of data were reviewed Discussed with nursing Staff, corporate event planner Infection Control and Prevention measures reviewed All prior entries were reviewed Administer medications as ordered Prognosis: Guarded Discharge planning reviewed Follow up as outpatient. Thank you for allowing us to participate in the care of this patient. Please call with questions. Dickson Hutchinson DPM Pager: - Office: * Divina Ferris RN - 10/13/2019 3:00 AM EDT Surface Room Shop Optician contacted internal med regarding pt blood pressure. [...] administer. New order for PO 10mg norvasc. Surface Room Shop Optician will continue to monitor BP and pain. * Alfonso Kendrick MD - 10/12/2019 4:32 PM EDT [facility] - Progress Note Today's Date [...] cultures Medical Decision Making/Summary/Discussion:10/12/2019 Infection Control Recommendations [place] Precautions Antimicrobial Stewardship Recommendations Discontinuation of therapy [...] of . INITIAL HISTORY: Patient transferred from [facility] on 10-09-19 because of low back pain and findings of an infrarenal abdominal aortic aneurysm. Developed onset of back pain on 10-07-19, associated with nausea. She was evaluated at [facility] and found to have a hypertensive emergency with systolic pressures over [address] showed a 3.5 cm infrarenal aortic aneurysm. Her BP was controlled with Cardene drip and the patient was transferred to [facility]. At [facility] patient had signs of hypoxia, and [...] file Gets together: Not on file Attends baptist service: Not on file Active member of [...] Initial FINDINGS: CTA NECK: AORTIC ARCH/ARCH VESSELS: Vmnv-nx-bsracadn atherosclerotic plaque at the arch arch and [...] No acute pulmonary process. Emphysema. Medical Decision Caeplg-Vimtpdek-Xpgfc: Medical Decision Making-Other: Note: Labs, medications, radiologic studies were reviewed with personal review of films Large amounts of data were reviewed Discussed with nursing Staff, corporate event planner Infection Control and Prevention measures reviewed All prior entries were reviewed Administer medications as ordered Prognosis: Guarded Discharge planning reviewed Follow up as outpatient. Thank you for allowing us to participate in the care of this patient. Please call with questions. Alfonso Kendrick MD Pager: - Office: * Malissa Anderson, IC ENGINEER - 10/12/2019 2:55 PM EDT Physical Therapy [...] palliative care. No further needs. Malissa Anderson, IC ENGINEER * Montserrat Finnegan OTA - 10/12/2019 2:26 PM EDT Occupational Therapy Not Seen Note DATE: 10/12/2019 Name: Zachary Maynard : 1945 Patient not available for Occupational Therapy due to: RN cx d/t pt not feeling well and has a fever. Next Scheduled Treatment: 10/13/2019 * Denys Morrsi MD - 10/12/2019 1:53 PM EDT [facility] Internal Medicine Teaching Residency Program Inpatient Daily Progress Note Patient: Zachary Maynard Date of : 1945 Acct: [id number] Room: Admit date: 10/09/2019 Today's date: 10/12/19 [...] Q4H PRN hydrALAZINE, 10 mg, Q6H PRN graudohvtc-erjmiganxuntn-zosdlfze, 1 tablet, Q4H PRN sodium chloride flush, [...] Denys Morris MD Internal Medicine Resident, PGY-3 [facility]; [place], [place] 10/12/2019, 1:53 PM * Michelle Pelletier MD - 10/12/2019 1:07 PM EDT Patient seen and examined Little sleepy, clonidine discontinued Hypertension controlled Headache improved MRI brain reviewed concerning for meningioma Work-up for secondary hypertension progress * Viry Morelos, FLAQUITO - AUTO CLAIM REPRESENTATIVE - 10/12/2019 6:51 AM EDT NEUROLOGY INPATIENT [...] to ensure the accuracy of this automated cold roll inspector, some errors in cold roll inspector may have occurred. * Divina Ferris RN - 10/11/2019 10:20 PM EDT Surface Room Shop Optician contacted internal med regarding pt headache of 3/10. Pt has IV toradol and reglan ordered. Pt is alert and oriented x2. Surface Room Shop Optician instructed to hold IV toradol and reglan and to administer PRN tylenol for the headache. Will continue to monitor. * Divina Ferris RN - 10/11/2019 10:20 PM EDT Surface Room Shop Optician contacted internal med regarding blood pressure 161/62 and temp of 99.9 after administering scheduled clonidine and lopressor. Pt rating headache 3/10. Surface Room Shop Optician instructed to hold scheduled IV toradol and reglan. 0435- Surface Room Shop Optician contacted internal med regarding BP. Surface Room Shop Optician unable to keep SBP <160. Surface Room Shop Optician administered PRN IV hydralazine at 2315 for a pressure in the 170s, pressure went to the 160s then back up.IV labetalol administered at 0315 for SBP in the low 180s. Pressure still in the 170s. No new orders at this time. Surface Room Shop Optician instructed to continue to monitor. 0530- IV hydralazine and PO fioricet administered. No new orders at this time. Will continue to monitor BP. * Divina Ferris RN - 10/11/2019 10:15 PM EDT Surface Room Shop Optician received call from Dr. Kendrick regarding pt [...] Hanson MD - 10/11/2019 2:46 PM EDT [facility] Internal Medicine Teaching Residency Program Inpatient Daily Progress Note Patient: Zachary Maynard Date of : 1945 Acct: [id number] Room: Admit date: 10/09/2019 Today's date: 10/11/19 [...] of COPD, primary hypertension was transferred from [facility] for management of infrarenal abdominal aortic aneurysm and for vascular consultation. States she started having lower back pain since . Describes the pain as constant, sharp, 10out of 10 in intensity associated with nausea. Patient went to the emergency department at [facility] to have hypertensive emergency with systolics [...] Q4H PRN hydrALAZINE, 10 mg, Q6H PRN ifdnrgnyaf-qsvqrdhqhsfls-mpowiqtp, 1 tablet, Q4H PRN sodium chloride flush, [...] Dwayne Hanson MD Internal Medicine Resident, PGY-1 [facility]; [place], [place] 10/11/2019, 2:46 PM * Michelle Pelletier [...] Ambulation Assistance: Independent Transfer Assistance: Independent Active Parking Patroller: Yes Occupation: Retired Additional Comments: pt reported [...] 10/11/2019 12:17 PM EDT Physical Therapy Facility/Department: [place] [id number] Initial Assessment NAME: Zachary Maynard : 1945 [...] Ambulation Assistance: Independent Transfer Assistance: Independent Active Parking Patroller: Yes Occupation: Retired Additional Comments: pt reported [...] Orders received. * Viry Morelos APRN - AUTO CLAIM REPRESENTATIVE - 10/11/2019 7:24 AM EDT NEUROLOGY INPATIENT [...] of Toradol 15mg, Reglan 5mg, Benadryl 12.5mg x2yuodb x3 -Continued blood pressure management as you are doing -May consider LP through IR for persistent headache -We will follow Please note that this note was generated using a voice recognition dictation software. Although every effort was made to ensure the accuracy of this automated cold roll inspector, some errors in cold roll inspector may have occurred. * Marely Guardado RN - 10/10/2019 9:18 PM EDT Perfect served performance consultant intermed: Patient is due to get [...] Hanson MD - 10/10/2019 11:58 AM EDT [facility] Internal Medicine Teaching Residency Program Inpatient Daily Progress Note Patient: Zachary Maynard Date of : 1945 Acct: [id number] Room: Admit date: 10/09/2019 Today's date: 10/10/19 [...] of COPD, primary hypertension was transferred from [facility] for management of infrarenal abdominal aortic aneurysm and for vascular consultation. States she started having lower back pain since . Describes the pain as constant, sharp, 10out of 10 in intensity associated with nausea. Patient went to the emergency department at [facility] to have hypertensive emergency with systolics [...] Dwayne Hanson MD Internal Medicine Resident, PGY-1 [facility]; [place], [place] 10/10/2019, 12:00 PM * Duglas Rodrigues [...] Prieto DO - 10/09/2019 4:07 AM EDT [facility] ED Emergency Department Emergency Medicine [...] a 74 y.o. Female with transfer from [place]. Low back pain since . 3.4 infrarenal [...] [] Eloped FOLLOW-UP: Adina Bunch MD [id number] [id number] DISCHARGE MEDICATIONS: New Prescriptions No medications on [...] section and content) DATE CREATED AUTHOR 08/13/2017 [facility] DATE CREATED AUTHOR AUTHOR'S ORGANIZ ATION 11/03/2019 [facility] DATE CREATED AUTHOR AUTHOR'S ORGANIZ ATION 11/29/2020 [facility] DATE CREATED AUTHOR AUTHOR'S ORGANIZ ATION 06/18/2022 [facility] DATE CREATED AUTHOR AUTHOR'S ORGANIZ ATION 04/25/2023 [facility] EPIC DATE CREATED AUTHOR AUTHOR'S ORGANIZ ATION 05/09/2023 [facility] Reason for Visit (unrecogniz ed section and content) Reason Comments Abdominal Pain Back Pain Status Reason Specialty Diagnoses / Procedures Referre d By Contact Referred To Contact Diagnoses AAA (abdominal aortic aneurysm) (HCC) Duglas Rodrigues MD [address] [place] [address] [facility] Care Teams (unrecognized sec tion and [...] BE BASED ON THE PRIMARY CLINICAL RECORDS. [employer] provides no warranty or guarantee of the accuracy or completeness of information in this document.
--- NOTE | 2023-12-02 17:32 | ECG_ITS ---
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
--- NOTE | 2023-12-02 17:32 | XR_ITS ---
The [address] [address] Patient Name: ZACHARY MAYNARD MRN: [id number] date: 1945 Sex: F Assigned Patient Location: ER Current Patient Location: ED.MAIN Accession/Order Number: [id number] Exam Date: 12/02/2023 17:50 Report Date: 12/02/2023 19:22 At the request of: INO EDWARDS Procedure: XR chest 1V ONE-VIEW CHEST RADIOGRAPH, 12/02/2023 5:50 PM EDT COMPARISON: Chest, 11/26/2023. CLINICAL HISTORY: chest pain Findings and impression: 1. No acute pulmonary disease. 2. Borderline heart size appears slightly accentuated due to patient rotation to the left. External monitoring analyst overlying the heart. 3. No acute osseous abnormality. Electronically authenticated by: Roni CATALAN Date: 12/02/2023 19:22
[2023-12-02 17:39] LABS: Basophils Absolute Auto 0.1 10^3/uL (0.0-0.1); Basophils Percent Auto 0.7 % (0.2-2.0); Eosinophils Absolute Auto 0.3 10^3/uL (0.0-0.7); Eosinophils Percent Auto 3.3 % (0.9-7.0); Hematocrit 34.4 % (36.0-48.0); Immature Granulocytes Abs Auto 0.04 10^3/uL (0.00-0.03); Immature Granulocytes Pct Auto 0.5 % (0.0-0.5); Lymphocytes Absolute Auto 2.1 10^3/uL (1.2-3.8); Lymphocytes Percent Auto 27.8 % (20.5-60.0); Mean Corpuscular Hemoglobin 28.2 pg (26.7-34.0); Mean Corpuscular Volume 88.2 fL (81.0-99.0); Mean Platelet Volume 10.2 fL (9.5-13.5); Monocytes Absolute Auto 0.4 10^3/uL (0.3-0.8); Monocytes Percent Auto 5.7 % (1.7-12.0); Neutrophils Absolute Auto 4.7 10^3/uL (1.4-6.5); Platelet Count 327 10^3/uL (150-450); Red Cell Distribution Width 15.6 % (11.0-15.0); White Blood Count 7.6 10^3/uL (4.0-11.0)
[2023-12-02 17:57] LABS: Anion Gap 12.9; BUN Creatinine Ratio 10.1; Calcium 9.5 mg/dL (8.5-10.1); Carbon Dioxide 27.8 mmol/L (21.0-32.0); Chloride 102 mmol/L (98-107); Estimated GFR (African America 48 (>=60 mL/min/1.73m^2); Estimated GFR (Non-African Ame 40 (>=60 mL/min/1.73m^2); Glucose 143 mg/dL (74-106); Potassium 3.7 mmol/L (3.5-5.1); Sodium 139 mmol/L (136-145); Troponin I High Sensitivity 6.6 pg/mL (4.0-51.3)
[2023-12-02 17:59] LABS: Magnesium 1.7 mg/dL (1.8-2.4)
--- NOTE | 2023-12-02 18:34 | ED_ITS ---
HPI - Chest Pain General Chief Complaint: Chest Pain Stated Complaint: Chest Pain Time Seen by Provider: 12/02/23 17:26 Source: patient Mode of arrival: Wheelchair Limitations: no limitations History of Present Illness HPI narrative: 78-year-old female to the emergency department with chief complaint of chest pain episodes. Patient reports she has been having intermittent chest pain episodes for a few weeks. She has also been having palpitations. She was told that she had some runs of a flutter on a monitor she was wearing but also some V. tach. She was instructed to come to the emergency department today to be transferred to [facility] for further cardiology evaluation. Dr. Langley reports that her a class lineman wants her to get a cardiac catheterization. Related Data Home Medications ?Medication ?Instructions ?Recorded ?Confirmed albuterol sulfate 90 mcg/actuation 2 puff inhalation Q4H PRN 11/23/23 11/26/23 aerosol inhaler shortness of breath or wheezing amiodarone 200 mg tablet 200 mg PO DAILY 12/02/23 12/02/23 tiotropium bromide 2.5 inhalation 12/02/23 mcg/actuation mist for inhalation (Spiriva Respimat) Previous Rx's ?Medication ?Instructions ?Recorded apixaban 5 mg tablet (Eliquis) 5 mg PO BID #60 tabs 11/28/23 metoprolol tartrate 25 mg tablet 50 mg (2 x 25 mg) PO BID #60 tabs 11/28/23 Allergies Allergy/AdvReac Type Severity Reaction Status Date / Time meperidine [From Demerol] Allergy Severe Anaphylaxis Verified 12/02/23 17:27 [facility] Medical History COPD (chronic obstructive pulmonary disease) ?J44.9 - Chronic obstructive pulmonary disease, unspecified (ICD-10) History of uterine cancer ?Z85.42 - Personal history of malignant neoplasm of other parts of uterus (ICD-10) Edema ?R60.9 - Edema, unspecified (ICD-10) Diabetes ?E11.9 - Type 2 diabetes mellitus without complications (ICD-10) HTN (hypertension) ?I10 - Essential (primary) hypertension (ICD-10) Surgical History H/O: hysterectomy ?Z90.710 - Acquired absence of both cervix and uterus (ICD-10) Family History Father Family history of cancer Family history of COPD (chronic obstructive pulmonary disease) Mother Family history of diabetes mellitus Family history of hypertension Family history of myocardial infarction Family history of CHF (congestive heart failure) Social History (Updated 11/26/23 @ 14:13 by Darlyn Sterling RN) Within the past year, how often did you have a drink containing alcohol: never Score interpretation: A score less than 3 is consistent with normal alcohol consumption. Smoking status: Former smoker Non-prescribed substance use: denies use Highest level of school completed/degree received: 9th grade Little interest or pleasure in doing things: not at all Feeling down, depressed, or hopeless: not at all Exam Constitutional Vital Signs, click to edit/add: Last Vital Signs Temp 99.1 F 12/02/23 17:13 Pulse 70 12/02/23 17:13 Resp 24 H 12/02/23 17:13 BP 194/83 H 12/02/23 17:13 Pulse Ox 97 12/02/23 17:13 O2 Del Method Room Air 12/02/23 17:13 Course Vital Signs Vital signs: Vital Signs Temperature 99.1 F 12/02/23 17:13 Pulse Rate 70 12/02/23 17:13 Respiratory Rate 24 H 12/02/23 17:13 Blood Pressure 194/83 H 12/02/23 17:13 Pulse Oximetry 97 12/02/23 17:13 Oxygen Delivery Method Room Air 12/02/23 17:13 Temperature 99.1 F 12/02/23 17:13 Pulse Rate 70 12/02/23 17:13 Respiratory Rate 24 H 12/02/23 17:13 Blood Pressure 194/83 H 12/02/23 17:13 Pulse Oximetry 97 12/02/23 17:13 Oxygen Delivery Method Room Air 12/02/23 17:13 MDM - Chest Pain MDM Narrative Medical decision making narrative: 78-year-old female to the emergency department for transfer to [facility]. Vital stable, the patient is afebrile. Cardiac workup is initiated. She has been having runs of V. tach as well as atrial flutter on her Holter monitor. CBC and chemistry without acute findings. Troponin is negative. Her BNP is elevated. Chest x-ray without acute findings. Care was signed out to Dr. Steve with transfer pending. Medical Records Data Attestation: I reviewed the patient's medical records. Lab Data Attestation: I reviewed the patient's lab results. Labs: Lab Results 12/02/23 Range/Units 17:20 WBC 7.6 (4.0-11.0) 10^3/uL RBC 3.90 L (4.20-5.40) 10^6/uL Hgb 11.0 L (12.0-16.0) g/dL Hct 34.4 L (36.0-48.0) % MCV 88.2 (81.0-99.0) fL MCH 28.2 (26.7-34.0) pg MCHC 32.0 (29.9-35.2) g/dL RDW 15.6 H (11.0-15.0) % Plt Count 327 (150-450) 10^3/uL MPV 10.2 (9.5-13.5) fL Neut % (Auto) 62.0 (43.0-75.0) % Lymph % (Auto) 27.8 (20.5-60.0) % [place] % (Auto) 5.7 (1.7-12.0) % Eos % (Auto) 3.3 (0.9-7.0) % Baso % (Auto) 0.7 (0.2-2.0) % Neut # (Auto) 4.7 (1.4-6.5) 10^3/uL Lymph # (Auto) 2.1 (1.2-3.8) 10^3/uL [place] # (Auto) 0.4 (0.3-0.8) 10^3/uL Eos # (Auto) 0.3 (0.0-0.7) 10^3/uL Baso # (Auto) 0.1 (0.0-0.1) 10^3/uL Abs Immat Gran (auto) 0.04 H (0.00-0.03) 10^3/uL Imm/Tot Granulo (auto) 0.5 (0.0-0.5) % Sodium 139 (136-145) mmol/L Potassium 3.7 (3.5-5.1) mmol/L Chloride 102 (98-107) mmol/L Carbon Dioxide 27.8 (21.0-32.0) mmol/L Anion Gap 12.9 BUN 13.0 (7.0-18.0) mg/dL Creatinine 1.29 H (0.55-1.02) mg/dL Est GFR ( Amer) 48 L (>=60 mL/min/1.73m^2) Est GFR (Non-Af Amer) 40 L (>=60 mL/min/1.73m^2) BUN/Creatinine Ratio 10.1 Glucose 143 H (74-106) mg/dL Calcium 9.5 (8.5-10.1) mg/dL Magnesium 1.7 L (1.8-2.4) mg/dL Troponin I High Sens 6.6 (4.0-51.3) pg/mL NT-Pro-B Natriuret Pep 2497.0 H* (<=1800.0) pg/mL ECG Data Attestation: I personally reviewed and interpreted this ECG as follows: (Atrial fibrillation. No STEMI. Normal QTc) Discharge Plan Discharge Chief Complaint: Chest Pain Clinical Impression: Chest pain, Non-sustained ventricular tachycardia Patient Disposition: Still a Patient Time of Disposition Decision: 19:05 Prescriptions / Home Meds: No Action memantine 28 mg capsule,sprinkle,ER 24hr 28 mg PO Q24H metformin 500 mg tablet extended release 24 hr 500 mg PO BID Jardiance 10 mg tablet 10 mg PO DAILY PRN (Reason: High blood sugar) furosemide 20 mg tablet 20 mg PO DAILY PRN (Reason: edema) Rx Instructions: TAKE 1 - 2 TABLETS BY MOUTH ONCE A DAY NEEDED metoprolol tartrate 25 mg Tablet 50 mg PO BID Qty: 60 11RF Eliquis 5 mg Tablet 5 mg PO BID Qty: 60 11RF ropinirole 0.5 mg tablet 0.5 mg PO .QHS hydrochlorothiazide 25 mg tablet 50 mg PO DAILY albuterol sulfate 90 mcg/actuation HFA aerosol inhaler 2 puff INHALATION Q4H PRN (Reason: shortness of breath or wheezing) ezetimibe 10 mg tablet 10 mg PO DAILY tiotropium bromide 18 mcg capsule, w/inhalation device 1 cap INHALATION DAILY Print Language: Comoran Referrals: Velasquez Langley MD [Primary Care Provider] - 1 week
[2023-12-02] MEDS: MAGNESIUM SULFATE IN WATER 2 GM/50 ML PREMIX IV (18:42)
--- NOTE | 2023-12-02 19:31 | ED_ITS ---
<Statement entered by Ryan Steve MD - 12/03/23 03:05> Please see my note regarding this patients ED care and disposition HPI - Chest Pain General Chief Complaint: Chest Pain Stated Complaint: Chest Pain Time Seen by Provider: 12/02/23 17:26 Source: patient Mode of arrival: Wheelchair Limitations: no limitations History of Present Illness HPI narrative: This 78-year-old female was signed out to me at shift change pending discussion with cardiology at [facility]. She was sent to the emergency department from her physician's office. She was also seen by Dr. Weaver in the cardiology office earlier today. The family is under the impression that she is supposed to be transferred to [facility] for an emergent cardiac cath. She has recently been on a vehicle monitor technician that showed runs of atrial flutter as well as V. tach. She has also been having intermittent episodes of chest pain. Related Data Home Medications ?Medication ?Instructions ?Recorded ?Confirmed albuterol sulfate 90 mcg/actuation 2 puff inhalation Q4H PRN 11/23/23 12/02/23 aerosol inhaler shortness of breath or wheezing amiodarone 200 mg tablet 200 mg PO DAILY 12/02/23 12/02/23 tiotropium bromide 2.5 inhalation 12/02/23 mcg/actuation mist for inhalation (Spiriva Respimat) Previous Rx's ?Medication ?Instructions ?Recorded apixaban 5 mg tablet (Eliquis) 5 mg PO BID #60 tabs 11/28/23 metoprolol tartrate 25 mg tablet 50 mg (2 x 25 mg) PO BID #60 tabs 11/28/23 Allergies Allergy/AdvReac Type Severity Reaction Status Date / Time meperidine [From Demerol] Allergy Severe Anaphylaxis Verified 12/02/23 17:27 [facility] Medical History COPD (chronic obstructive pulmonary disease) ?J44.9 - Chronic obstructive pulmonary disease, unspecified (ICD-10) History of uterine cancer ?Z85.42 - Personal history of malignant neoplasm of other parts of uterus (ICD-10) Edema ?R60.9 - Edema, unspecified (ICD-10) Diabetes ?E11.9 - Type 2 diabetes mellitus without complications (ICD-10) HTN (hypertension) ?I10 - Essential (primary) hypertension (ICD-10) Surgical History H/O: hysterectomy ?Z90.710 - Acquired absence of both cervix and uterus (ICD-10) Family History Father Family history of cancer Family history of COPD (chronic obstructive pulmonary disease) Mother Family history of diabetes mellitus Family history of hypertension Family history of myocardial infarction Family history of CHF (congestive heart failure) Social History (Updated 11/26/23 @ 14:13 by Darlyn Sterling RN) Within the past year, how often did you have a drink containing alcohol: never Score interpretation: A score less than 3 is consistent with normal alcohol consumption. Smoking status: Former smoker Non-prescribed substance use: denies use Highest level of school completed/degree received: 9th grade Little interest or pleasure in doing things: not at all Feeling down, depressed, or hopeless: not at all Exam Constitutional Vital Signs, click to edit/add: Last Vital Signs Temp 99.1 F 12/02/23 17:13 Pulse 70 12/02/23 17:13 Resp 24 H 12/02/23 17:13 BP 194/83 H 12/02/23 17:13 Pulse Ox 97 12/02/23 17:13 O2 Del Method Room Air 12/02/23 17:13 Course Vital Signs Vital signs: Vital Signs Temperature 99.1 F 12/02/23 17:13 Pulse Rate 70 12/02/23 17:13 Respiratory Rate 24 H 12/02/23 17:13 Blood Pressure 194/83 H 12/02/23 17:13 Pulse Oximetry 97 12/02/23 17:13 Oxygen Delivery Method Room Air 12/02/23 17:13 Temperature 99.1 F 12/02/23 17:13 Pulse Rate 70 12/02/23 17:13 Respiratory Rate 24 H 12/02/23 17:13 Blood Pressure 194/83 H 12/02/23 17:13 Pulse Oximetry 97 12/02/23 17:13 Oxygen Delivery Method Room Air 12/02/23 17:13 MDM - Chest Pain Lab Data Labs: Lab Results 12/02/23 Range/Units 17:20 WBC 7.6 (4.0-11.0) 10^3/uL RBC 3.90 L (4.20-5.40) 10^6/uL Hgb 11.0 L (12.0-16.0) g/dL Hct 34.4 L (36.0-48.0) % MCV 88.2 (81.0-99.0) fL MCH 28.2 (26.7-34.0) pg MCHC 32.0 (29.9-35.2) g/dL RDW 15.6 H (11.0-15.0) % Plt Count 327 (150-450) 10^3/uL MPV 10.2 (9.5-13.5) fL Neut % (Auto) 62.0 (43.0-75.0) % Lymph % (Auto) 27.8 (20.5-60.0) % [place] % (Auto) 5.7 (1.7-12.0) % Eos % (Auto) 3.3 (0.9-7.0) % Baso % (Auto) 0.7 (0.2-2.0) % Neut # (Auto) 4.7 (1.4-6.5) 10^3/uL Lymph # (Auto) 2.1 (1.2-3.8) 10^3/uL [place] # (Auto) 0.4 (0.3-0.8) 10^3/uL Eos # (Auto) 0.3 (0.0-0.7) 10^3/uL Baso # (Auto) 0.1 (0.0-0.1) 10^3/uL Abs Immat Gran (auto) 0.04 H (0.00-0.03) 10^3/uL Imm/Tot Granulo (auto) 0.5 (0.0-0.5) % Sodium 139 (136-145) mmol/L Potassium 3.7 (3.5-5.1) mmol/L Chloride 102 (98-107) mmol/L Carbon Dioxide 27.8 (21.0-32.0) mmol/L Anion Gap 12.9 BUN 13.0 (7.0-18.0) mg/dL Creatinine 1.29 H (0.55-1.02) mg/dL Est GFR ( Amer) 48 L (>=60 mL/min/1.73m^2) Est GFR (Non-Af Amer) 40 L (>=60 mL/min/1.73m^2) BUN/Creatinine Ratio 10.1 Glucose 143 H (74-106) mg/dL Calcium 9.5 (8.5-10.1) mg/dL Magnesium 1.7 L (1.8-2.4) mg/dL Troponin I High Sens 6.6 (4.0-51.3) pg/mL NT-Pro-B Natriuret Pep 2497.0 H* (<=1800.0) pg/mL Discharge Plan Discharge Patient Disposition: Still a Patient
--- NOTE | 2023-12-02 19:33 | ECG_ITS ---
The 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
--- NOTE | 2023-12-02 19:53 | PC.NURSE ---
Patient resting in bed, family at bedside. Family is concerned that patient is not being transferred to [place] now. They want to know why, since Dr. Langley sent her over here emergently based on results of holter monitor, and since Dr. Youssef told them she was going to be transferred. I tried to explain to them that Dr. Steve spoke with Dr. Moss and he did not think transfer today was medically necessary and scheduled her for outpatient heart cath later this week. They are still not understanding why it is no longer necessary when earlier it was, I again tried to explain that I just repeated an EKG that looked fairly normal, and she is not having a STEMI, or an emergent need for heart cacth tonight, so transfer is not medically. They seem to be more understanding at this time.
--- OUTSIDE RECORDS SUMMARY | 2023-12-02 21:27 | XMS_ITS | CCD ---
Author Organization 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 Assistant Name Role Phone ADINA BUNCH Unavailable Unavailable DALTON, RACHAEL K Unavailable Unavailable ALTON, MICHELLE Unavailable Unavailable ALTON, MICHELLE Unavailable Unavailable Adina Bunch Primary Care Provider [phone] JUDIE, DUGLAS S Admitting Unavailable JUDIE, DUGLAS [...] reactions to drug 4 Unknown Reaction, Rash [place] (4 sources) Ciprofloxacin Drug Allergy 8 [place]om[place] (1 source) Hmg-Coa Reductase Inhibitors (Statins) Propensity to adverse reactions to drug 8 [place] (4 sources) Meperidine Drug Allergy 8 Anaphylaxis [place] (4 sources) moxifloxacin Drug Allergy 8 [place] (4 sources) Nalbuphine Drug Allergy 8 Unknown Reaction, Itching [place] (4 sources) Promethazine Drug Allergy 8 Unknown Reaction [place] (1 source) Sulfonamides (Antibiotic) Propensity to adverse reactions to drug 8 [place] (2 sources) black walnut pollen extract Drug Allergy 4 [facility] (2 sources) Ciprofloxacin Drug Allergy [address] [facility] (2 sources) Levamisole Drug Allergy 4 [facility] (2 sources) Meperidine Drug Allergy 4 [facility] (2 sources) moxifloxacin Drug Allergy 4 [facility] (2 sources) Nalbuphine Drug Allergy 4 [facility] (1 source) Sulfonamides (Antibiotic) Drug allergy (disorder) 7 [facility] (4 sources) Sulfacetamide; 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: [sulfacetamide] Drug Allergy 4 Unknown Reaction, Itching [facility] (4 sources) Sulfur; 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: [sulfur] Drug Allergy 4 Unknown Reaction [facility] (4 sources) Lbnrads-YOD-GbB Reductase Inhibitor; 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: [Uvzhuqh-BBP-UdX Reductase Inhibitor] Allergy to substance 4 Unknown Reaction [facility] (1 source) Ciprofloxacin Drug Allergy 4 [facility] (1 source) Meperidine Drug Allergy 4 [facility] (1 source) moxifloxacin Drug Allergy 4 [facility] (1 source) Nalbuphine Drug Allergy 4 [facility] (1 source) Promethazine Drug Allergy 4 [facility] Repository Medications Current Medications Medication Drug Class(es) [...] Central Nervous System Stimulant, Methylxanthine Start: 10-10-2019 pafcjhqkwk-jdynpjrlfufkn-cag feine (FIORICET, ESGIC) per tablet 1 tablet [id number] 200 actuat albuterol 0.09 mg/actuat metered dose [...] mg extended release oral capsule (3 sources) G-oxhwjc-Z-aspartate Receptor Antagonist Start: 04-08-2023 take 28 mg [...] disintegrating tablet 4 mg polyethylene glycol 3350 31100 mg powder for oral solution (3 sources) [...] spironolactone (ALDACTONE) t ablet 50 mg Vit C,R-Cg-[place]a-Lutein-Zeax an (Preservision Areds-2) 250-90-40-1 mg capsule (1 source) Start: 04-17-2023 Vit C,F-Yw-Raoil-Lutein-Zeax an (Preservision Areds-2) 250-90-40-1 mg capsule Active [...] 0 04-24-2023 Commemt1 Glu2: Cleaned Meter Normal [facility] Comment on above: Result Comment: PERF ORMED BY: [facility] [address] [place] [address] PATHOLOGIST LEATHER CARVER MARKELL WILDE M.D. Performed By: #### G LULS #### Point of Care testing , Glucose [Mass/Vol] 95 mg/dL Normal [facility] Comment on above: Result Comment: [place] Glucose Reference Range is dependent on time and content of last meal. Glucose of more than 200 mg/dL in a nonstressed, ambulatory subject supports the diagnosis of Diabetes Mellitus. Performed By: #### G LULS #### Point of Care testing , Alanine aminotransferase [En zymatic activity/volume] in Serum or PlasmaOrdered By: Anju Lees on 04-17-2023 ALT [Catalytic activity/Vol] 11 U/L 7-52 [facility] Albumin [Mass/volume] in Ser um or Plasma by Bromocresol green (BCG) dye binding methoOrdered By: Anju Lees on 04-17-2023 Albumin BCG dye [Mass/Vol] 3.7 g/dL 3.5-5.7 [facility] Alkaline phosphatase [Enzyma tic activity/volume] in Serum or PlasmaOrdered By: Anju Lees on 04-17-2023 ALP [Catalytic activity/Vol] 110 U/L 34-104 [facility] Aspartate aminotransferase [ Enzymatic activity/volume] in Serum or PlasmaOrdered By: Anju Lees on 04-17-2023 AST [Catalytic activity/Vol] 16 U/L 13-39 [facility] Basophils Auto (Bld) [#/Vol] Ordered By: Anju Lees on 04-17-2023 Basophils (Bld) [#/Vol] 0.1 10*3/uL 0.0-0.2 [facility] Basophils/100 WBC Auto (Bld) Ordered By: Anju Lees on 04-17-2023 Basophils/100 WBC (Bld) 0.6 % . [facility] Bilirubin.total [Mass/volume ] in Serum or PlasmaOrdered By: Anju Lees on 04-17-2023 Bilirubin [Mass/Vol] 0.5 mg/dL 0.3-1.0 [facility] CMP with reflex to A1Con Albumin [Mass/Vol] 3.7 g/dL Normal 3.5-5.7 [facility] Comment on above: Performed By: #### C MP wRFX A1C, CBC #### [facility] [address] Albumin/Globulin [Mass ratio] 1.9 {ratio} Normal [facility] Comment on above: Performed By: #### C MP wRFX A1C, CBC #### [facility] [address] ALP [Catalytic activity/Vol] 110 U/L High 34-104 [facility] Comment on above: Result Comment: PERF ORMED BY: [place] [address] PATHOLOGIST LEATHER CARVER MARKELL WILDE M.D. Performed By: #### C MP wRFX A1C, CBC #### [facility] [address] [place] [address] [place] ALT [Catalytic activity/Vol] 11 U/L Normal 7-52 [facility] Comment on above: Performed By: #### C MP wRFX A1C, CBC #### [facility] [address] [place] [address] [place] Anion gap [Moles/Vol] 10.3 mmol/L Normal 6.0-15.0 [facility] Comment on above: Performed By: #### C MP wRFX A1C, CBC #### [facility] [address] [place] [address] [place] AST [Catalytic activity/Vol] 16 U/L Normal 13-39 [facility] Comment on above: Performed By: #### C MP wRFX A1C, CBC #### [facility] [address] Bilirubin [Mass/Vol] 0.5 mg/dL Normal 0.3-1.0 [facility] Comment on above: Performed By: #### C MP wRFX A1C, CBC #### [facility] [address] Calcium [Mass/Vol] 9.5 mg/dL Normal 8.6-10.3 [facility] Comment on above: Performed By: #### C MP wRFX A1C, CBC #### [address] Chloride [Moles/Vol] 102 mmol/L Normal 98-107 [facility] Comment on above: Performed By: #### C MP wRFX A1C, CBC #### [facility] [address] [place] [address] CO2 [Moles/Vol] 31.9 mmol/L High 21.0-31.0 [facility] Comment on above: Performed By: #### C MP wRFX A1C, CBC #### [address] Creatinine [Mass/Vol] 1.01 mg/dL Normal 0.60-1.20 [facility] Comment on above: Performed By: #### C MP wRFX A1C, CBC #### [facility] [address] [place] [address] [place] GFR/1.73 sq M.predicted MDRD (S/P/Bld) [Vol rate/Area] 56.627 mL/min/{1.73_m2} [facility] Comment on above: Performed By: #### C MP wRFX A1C, CBC #### [facility] [address] [place] [address] Globulin (S) [Mass/Vol] 2.0 g/dL [facility] Comment on above: Performed By: #### C MP wRFX A1C, CBC #### [facility] [address] [place] [address] [place] Glucose [Mass/Vol] 89 mg/dL Normal 70-100 [facility] Comment on above: Performed By: #### C MP wRFX A1C, CBC #### [facility] [address] [place] [id number] [place] Potassium [Moles/Vol] 4.2 mmol/L Normal 3.5-5.1 [facility] Comment on above: Performed By: #### C MP wRFX A1C, CBC #### [facility] [address] Protein [Mass/Vol] 5.7 g/dL Low 6.4-8.9 [facility] Comment on above: Performed By: #### C MP wRFX A1C, CBC #### [facility] [address] [place] [address] [place] Sodium [Moles/Vol] 140 mmol/L Normal 136-145 [facility] Comment on above: Performed By: #### C MP wRFX A1C, CBC #### [facility] [address] [place] [id number] [place] Urea nitrogen [Mass/Vol] 23 mg/dL Normal 7-25 [facility] Comment on above: Performed By: #### C MP wRFX A1C, CBC #### [facility] [address] [place] [id number] [place] Calcium [Mass/volume] in Ser um or PlasmaOrdered By: Ajnu Lees on 04-17-2023 Calcium [Mass/Vol] 9.5 mg/dL 8.6-10.3 [facility] Carbon dioxide, total [Moles /volume] in Serum or PlasmaOrdered By: Anju Lees on 04-17-2023 CO2 [Moles/Vol] 31.9 mmol/L 21.0-31.0 [facility] Chloride [Moles/volume] in S martita or PlasmaOrdered By: Anju Lees on 04-17-2023 Chloride [Moles/Vol] 102 mmol/L 98-107 [facility] Complete Blood Count Auto Di ffon 04-17-2023 Basophils (Bld) [#/Vol] 0.1 10*3/uL Normal 0.0-0.2 [facility] Comment on above: Result Comment: PERF ORMED BY: [place] [address] PATHOLOGIST LEATHER CARVER MARKELL WILDE M.D. Performed By: #### C MP wRFX A1C, CBC #### [facility] [address] [place] [address] Basophils/100 WBC (Bld) 0.6 % Normal . [facility] Comment on above: Performed By: #### C MP wRFX A1C, CBC #### [address] Eosinophils (Bld) [#/Vol] 0.3 10*3/uL Normal 0.0-0.45 [facility] Comment on above: Performed By: #### C MP wRFX A1C, CBC #### [address] Eosinophils/100 WBC (Bld) 3.1 % Normal . [facility] Comment on above: Performed By: #### C MP wRFX A1C, CBC #### [address] Erythrocyte distribution width (RBC) [Ratio] 16.3 % High 11.9-15.3 [facility] Comment on above: Performed By: #### C MP wRFX A1C, CBC #### [facility] [address] [place] [address] Hematocrit (Bld) [Volume fraction] 33.3 % Low 34.0-46.4 [facility] Comment on above: Performed By: #### C MP wRFX A1C, CBC #### [address] Hemoglobin (Bld) [Mass/Vol] 11.1 g/dL Low 11.8-15.4 [facility] Comment on above: Performed By: #### C MP wRFX A1C, CBC #### [address] [place] [address] [place] Lymphocytes (Bld) [#/Vol] 2.1 10*3/uL Normal 1.00-4.8 [facility] Comment on above: Performed By: #### C MP wRFX A1C, CBC #### [facility] [address] Lymphocytes/100 WBC (Bld) 22.7 % Normal . [facility] Comment on above: Performed By: #### C MP wRFX A1C, CBC #### [address] MCH (RBC) [Entitic mass] 27.9 pg Normal 24.7-34.3 [facility] Comment on above: Performed By: #### C MP wRFX A1C, CBC #### [address] MCV (RBC) [Entitic vol] 83.3 fL Normal 80-100 [facility] Comment on above: Performed By: #### C MP wRFX A1C, CBC #### [address] Mean Corpuscular HGB Conc 33.4 g/dL Normal 32.0-35.0 [facility] Comment on above: Performed By: #### C MP wRFX A1C, CBC #### [address] Monocytes (Bld) [#/Vol] 0.6 10*3/uL Normal 0.0-0.8 [facility] Comment on above: Performed By: #### C MP wRFX A1C, CBC #### [place] [address] [place] Monocytes/100 WBC (Bld) 6.5 % Normal . [facility] Comment on above: Performed By: #### C MP wRFX A1C, CBC #### [address] Neutrophils (Bld) [#/Vol] 6.1 10*3/uL Normal 1.8-7.7 [facility] Comment on above: Performed By: #### C MP wRFX A1C, CBC #### [facility] [address] Neutrophils/100 WBC (Bld) 67.1 % Normal . [facility] Comment on above: Performed By: #### C MP wRFX A1C, CBC #### [facility] [address] NRBC% 0.1 /100{WBC} Normal 0-0.5 [facility] Comment on above: Performed By: #### C MP wRFX A1C, CBC #### [facility] [address] Platelet mean volume (Bld) [Entitic vol] 8.7 fL Normal 6.3-10.7 [facility] Comment on above: Performed By: #### C MP wRFX A1C, CBC #### [facility] [address] Platelets (Bld) [#/Vol] 249 10*3/uL Normal 150-450 [facility] Comment on above: Performed By: #### C MP wRFX A1C, CBC #### [facility] [address] RBC (Bld) [#/Vol] 4.00 10*6/uL Normal 3.60-5.00 [facility] Comment on above: Performed By: #### C MP wRFX A1C, CBC #### [facility] [address] [place] [address] [place] WBC (Bld) [#/Vol] 9.1 10*3/uL Normal 3.8-11.6 [facility] Comment on above: Performed By: #### C MP wRFX A1C, CBC #### [facility] [address] [place] [address] [place] Creatinine [Mass/volume] in Serum or PlasmaOrdered By: Anju Lees on 04-17-2023 Creatinine [Mass/Vol] 1.01 mg/dL 0.60-1.20 [facility] ECG 12 lead ECGon 04-17-2023 ECG 12 lead ECG [facility] [place] [address] [place] [address] Electrocardiograph Report Signed Patient: Zachary Maynard MR#: [id number] : 1945 Acct:[id number] Age/Sex: 77 / F ADM Date: 04/17/23 Loc: Room: Type: [facility] Attending Dr: Anju Lees MD Ordering Provider: [...] previous ECGs available Confirmed by BAILEE MACIAS [id number] on 04/17/2023 3:12:20 PM Referred By: FREDDY Electronically Signed By:JASON MARIE MD [facility] Transcribed By: MUS Signed By Bonifacio Marie MD 04/17/23 1512 Normal [facility] Eosinophils Auto (Bld) [#/Vo l]Ordered By: Anju Lees on 04-17-2023 Eosinophils (Bld) [#/Vol] 0.3 10*3/uL 0.0-0.45 [facility] Eosinophils/100 WBC Auto (Bl d)Ordered By: Anju Lees on 04-17-2023 Eosinophils/100 WBC (Bld) 3.1 % . [facility] Erythrocyte distribution wid th Auto (RBC) [Ratio]Ordered By: Anju Lees on 04-17-2023 Erythrocyte distribution width (RBC) [Ratio] 16.3 % 11.9-15.3 [facility] Globulin Calc (S) [Mass/Vol] Ordered By: Anju Lees on 04-17-2023 Globulin (S) [Mass/Vol] 2.0 g/dL [facility] Glucose [Mass/volume] in Ser um or PlasmaOrdered By: Anju Lees on 04-17-2023 Glucose [Mass/Vol] 89 mg/dL 70-100 [facility] Hematocrit Auto (Bld) [Volum e fraction]Ordered By: Anju Lees on 04-17-2023 Hematocrit (Bld) [Volume fraction] 33.3 % 34.0-46.4 [facility] Hemoglobin [Mass/volume] in BloodOrdered By: Anju Lees on 04-17-2023 Hemoglobin (Bld) [Mass/Vol] 11.1 g/dL 11.8-15.4 [facility] Leukocytes [#/volume] correc lovely for nucleated erythrocytes in Blood by Automated counOrdered By: Anju Lees on 04-17-2023 WBC corrected for nucl RBC Auto (Bld) [#/Vol] 9.1 10*3/uL 3.8-11.6 [facility] Lymphocytes Auto (Bld) [#/Vo l]Ordered By: Anju Lees on 04-17-2023 Lymphocytes (Bld) [#/Vol] 2.1 10*3/uL 1.00-4.8 [facility] Lymphocytes/100 WBC Auto (Bl d)Ordered By: Anju Lees on 04-17-2023 Lymphocytes/100 WBC (Bld) 22.7 % . [facility] MCH Auto (RBC) [Entitic mass ]Ordered By: Anju Lese on 04-17-2023 MCH (RBC) [Entitic mass] 27.9 pg 24.7-34.3 [facility] MCHC Auto (RBC) [Mass/Vol]Or dered By: Anju Lees on 04-17-2023 MCHC (RBC) [Mass/Vol] 33.4 g/dL 32.0-35.0 [facility] MCV Auto (RBC) [Entitic vol] Ordered By: Anju Lees on 04-17-2023 MCV (RBC) [Entitic vol] 83.3 fL 80-100 [facility] Monocytes Auto (Bld) [#/Vol] Ordered By: Anju Lees on 04-17-2023 Monocytes (Bld) [#/Vol] 0.6 10*3/uL 0.0-0.8 [facility] Monocytes/100 WBC Auto (Bld) Ordered By: Anju Lees on 04-17-2023 Monocytes/100 WBC (Bld) 6.5 % . [facility] Neutrophils Auto (Bld) [#/Vo l]Ordered By: Anju Lees on 04-17-2023 Neutrophils (Bld) [#/Vol] 6.1 10*3/uL 1.8-7.7 [facility] Neutrophils/100 WBC Auto (Bl d)Ordered By: Anju Lees on 04-17-2023 Neutrophils/100 WBC (Bld) 67.1 % . [facility] No Panel InformationOrdered By: Anju Lees on 04-17-2023 Estimated GFR (CKD-EPI) 56.627 mL/Min [facility] Creatinine Clearance (Chem N/A [facility] Nucleated erythrocytes [Pres ence] in Blood by Automated countOrdered By: Anju Lees on 04-17-2023 Nucleated RBC Auto Ql (Bld) 0.1 /100{WBC} 0-0.5 [facility] Platelet mean volume Auto (B ld) [Entitic vol]Ordered By: Anju Lees on 04-17-2023 Platelet mean volume (Bld) [Entitic vol] 8.7 fL 6.3-10.7 [facility] Platelets Auto (Bld) [#/Vol] Ordered By: Anju Lees on 04-17-2023 Platelets (Bld) [#/Vol] 249 10*3/uL 150-450 [facility] Potassium [Moles/volume] in Serum or PlasmaOrdered By: Anju Lees on 04-17-2023 Potassium [Moles/Vol] 4.2 mmol/L 3.5-5.1 [facility] Protein [Mass/volume] in Ser um or PlasmaOrdered By: Anju Lees on 04-17-2023 Protein [Mass/Vol] 5.7 g/dL 6.4-8.9 [facility] RBC Auto (Bld) [#/Vol]Ordere d By: Anju Lees on 04-17-2023 RBC (Bld) [#/Vol] 4.00 10*6/uL 3.60-5.00 [facility] Serum or plasma albumin/glob ulin mass ratioOrdered By: Anju Lees on 04-17-2023 Albumin/Globulin [Mass ratio] 1.9 {ratio} [facility] Serum or plasma anion gap de terminationOrdered By: Anju Lees on 04-17-2023 Anion gap [Moles/Vol] 10.3 mmol/L 6.0-15.0 [facility] Sodium [Moles/volume] in Ser um or PlasmaOrdered By: Anju Lees on 04-17-2023 Sodium [Moles/Vol] 140 mmol/L 136-145 [facility] Urea nitrogen [Mass/volume] in Serum or PlasmaOrdered By: Anju Lees on 04-17-2023 Urea nitrogen [Mass/Vol] 23 mg/dL 7-25 [facility] WBC Auto (Bld) [#/Vol]Ordere d By: Anju Lees on 04-17-2023 WBC (Bld) [#/Vol] 9.1 10*3/uL 3.8-11.6 [facility] XR hand RT min 3V*on 024 XR hand RT min 3V* [place] [address] XRay Report Signed Patient: Zachary Maynard MR#: [id number] : 1945 Acct:[id number] Age/Sex: 77 / F ADM Date: 04/08/23 [place] [facility] [place]: Type: [facility] Attending Dr: Anju Lees MD Copies to: [...] Sammie Arizmendi M.D.04/08/2023 1:57 PM Dictation Location: [employer] Transcribed By: AUSTIN 04/08/23 135 Dictated By: Sammie Arizmendi MD 04/08/231352 Signed By: 04/08/231356 [facility] ECHOCARDIO M/2D COMPLETEon 0 05-29-2022 ECHOCARDIO M/2D COMPLETE Patient: ZACHARY MAYNARD Exam Date: 05/29/2022 : 1945 Gender:F Ordering : DR ADINA BUNCH . Admission #: [id number] Family : Order #: [id number] CLICK HERE TO VIEW EXAM ECHOCARDIOGRAM REPORT [...] Shore M.D. on 05/30/2022 at 18:32 Normal [facility] MRI BRAIN WO CONon MRI [...] RENATA GAYTAN Date: 2022-05-29 13:51 Normal [facility] US CAROTID ART BILon 023 US CAROTID [...] RENATA GAYTAN Date: 2022-05-29 12:55 Normal [facility] Covid-19 PCR ([facility]on 01-24 SARS-CoV-2 (COVID-19) RNA ARMIN+probe Ql (Unsp spec) Not detected Normal NOT DETECTED [facility] Comment on above: Result Comment: This test is not yet approved or cleared by the [place] FDA. When there are no FDA-approved or cleared tests available, and other criteria are met, FDA can make tests available under an emergency access mechanism called an Emergency Use Authorization (EUA). The EUA for this test is supported by the Office System Analyst of Health and Human Service's (HHS's) declaration [...] consistent with SARS-CoV-2. Performed By: #### C [facility] #### [facility] [address] [place] [address] Dr. Samuel Kang Ambulatory Clinical Summaryo n 09-11-2020 Ambulatory Clinical Summary {[id number] }CD:[id number] Normal [facility] Patient Educationon 09-12-19 21 Patient Education [...] could (more content not included)... Normal [facility]a [facility] Urology Office/Clinic Noteon 09-11-2020 Urology Office/Clinic [...] MD, Jude Farias URO In 6 months [phone] Additional Instructions: Patient Education Calorie Counting for [...] (COVID-19) mR (more content not included)... Normal [facility] Comment on above: Result Comment: Elec tronically Signed By: Thuan ARMANDO MD\.br\Date and Time Signed: 09/11/20 16:11 EDT\.br\Electronically Co-Signed By: Anastasia Cabral\.br\Date and Time Co-Signed: 09/11/20 16:08 EDT Ambulatory Clinical Summaryo n 08-08-2020 Ambulatory Clinical Summary {[id number] }CD:[id number] [facility] Patient Educationon 08-09-19 21 Patient Education [...] stimulation). ? For women, using a medical technologist hematology to prevent urine leaks. This is a [...] after experiencing incontinence. General instructions ? Take juil-cjr-saulozr and prescription medicines only as (more content not included)... Normal [facility] Urology Office/Clinic Noteon 08-08-2020 Urology Office/Clinic [...] MD, Jude Farias, URO [address] [place] [address]- Additional Instructions: 1mos. f/u Patient Education Urinary [...] of urethral (more content not included)... Normal [facility] Comment on above: Result Comment: Elec tronically Signed By: Tushar Nunez MD, Jude Farias\.br\Date and Time Signed: 08/08/20 11:28 EDT\.br\Electronically Co-Signed By: Kisha Stevens MA\.br\Date and Time Co-Signed: 08/08/20 11:15 EDT Operative Reporton Operative Report [id number]#1.00CD: 127 [facility] Pathology Noteon 07-27-2020 Pathology Note [id number]#1.00CD :127 [facility] Comment on above: Result Comment: Elec tronically Signed By: Tushar Nunez MD, Jude Farias\.br\Date and Time Signed: 08/07/20 11:22 EDT ECG 12-Leadon 07-24-2020 ECG 12-Lead [id number]#1.00CD: 127 [facility] ED Note-Physicianon 07-25-19 ED Note-Physician [id number]#1.00CD:1 27 [facility] Lab Reportson 07-24-2020 Lab Reports [id number]#1.00CD: 127 [facility] Lab Reports [id number]#1.00CD: 127 [facility] RAD - MISCon 07-24-2020 RAD - MISC [id number]#1.00CD: 127 [facility] Insurance Correspondence Off iceon 07-20-2020 Insurance Correspondence Office [id number]#1.00CD: 127 [facility] Operative Reporton Operative Report [id number]#1.00CD: 127 [facility] Physician Orderon 07-12-2020 Physician Order [id number]#1.00CD: 127 [facility] Pre-Authorization for Medica l Treatmenton 07-12-2020 Pre-Authorization for Medical Treatment [id number]#1.00CD :127 [facility] Ambulatory Clinical Summaryo 07-11-2020 Ambulatory Clinical Summary {[id number] }[id number] [facility] Patient Educationon 07-12-19 Patient Education Obstetrics [...] including vitamins, herbs, eye drops, creams, and evvm-jtk-tgvpnvg medicines. ? Any problems you or family [...] diabetes medicines or blood thinners. ? Taking vbnz-ehv-uxygsxp medicines, vitamins, herbs, and supplements. ? Taking [...] to r (more content not included)... [facility] Urology Office/Clinic Noteon 07-11-2020 Urology Office/Clinic Note Chief Complaint 3 week follow up This patient is a 75-year-old female with a history of a grade 2 midline cystocele. She is here today to discuss treatment options. She does have some symptoms of stress incontinence. She underwent cystoscopic examination with dilation of her urethra on May 08 2020. [facility] Staff Zachary is a 75 y.o. female [...] urine and/or bladder capacity by US- non-imaging 51500 Urnls Dip Stick Auto w/o Microscopy POC 52902 Urology Procedure Order 2. Cystocele with prolapse [...] [facility] [address], [place] [address]- Additional Instructions: Patient Education Urethral Vaginal Sling [...] UTI Hypertensio (more content not included)... [facility] Comment on above: Result Comment: Elec tronically Signed By: Jude Finley Jr., MD\.br\Date and Time Signed: 07/11/20 14:49 EDT\.br\Electronically Co-Signed By: Libby Chambers MA\.br\Date and Time Co-Signed: 07/11/20 14:30 EDT Ambulatory Clinical Summaryo n 06-20-2020 Ambulatory Clinical Summary {[id number] }CD:[id number] Vigril Corea [facility] Patient Educationon 06-21-19 Patient Education Urology [...] including vitamins, herbs, eye drops, creams, and bpvt-cdz-cpcqchn medicines. ? Any problems you or family [...] tells you to take them. ? Taking ikza-dzt-zjgmmzq medicines, vitamins, herbs, and supplements. General instructions [...] these instructions at home: Medicines ? Take khcv-dma-gvfeshd and prescription medicines only as told by [...] to prevent or treat constipation: ? Take inze-slh-rphxifg or prescription medicines. ? Eat foods that [...] pa (more content not included)... Normal [facility] Urology Office/Clinic Noteon 06-20-2020 Urology Office/Clinic [...] Urnls Dip Stick Auto w/o Microscopy POC 50371 I have reviewed the previous health record information and history for this patient from Dr. Finley Follow-up With When Contact Information Tushar Nunez MD, Jude Farias, URO [facility] [address] [place] [address]- Additional Instructions: 2 weeks Patient Education Urethral [...] mixed type (more content not included)... [facility] Comment on above: Result Comment: Elec tronically Signed By: Tushar Nunez MD, Jude Farias\.br\Date and Time Signed: 06/20/20 14:36 EDT\.br\Electronically Co-Signed By: Maria Del Carmen Hernandez MA\.br\Date and Time Co-Signed: 06/20/20 14:24 EDT Coding Summary.on 06-16-2020 Coding Summary. CD:[id number] Gh0b Ww+PGhlYWQ+PE3HOTWeE57ik FAxhS0BE8tHPN1JYLXHUOVNW P1JVG1gsTF9EClhF8WltwNi VfpfzNCsUT00SBb1WLY7aKmw JTdklB3idQFjK9s0NdItEE17 jN88FMnqKLUbNdG9KwFxifuj bWFy S3cpHoOjwDOyByj+PHRhYmxl IHdpZHRoPScxMDAlJyBzdHls NE3sOs7lLUGzWZCjtJjxzDXe OiBj q1lxHDFsJWohZD4crJnjR0Qz qMD2EYSzg2g3Bp15aQJ+PHRk SZN5qBgcMLrfw128EjEym5qk IDM3 wNFwFBarGNB2Z54qi8S4DWOq INMwSHX9aWL8rA1pcPmcrand M4AipLDkClO1DXT6rKLjyL2y bGln wfzvaC6mZdx+H91QFM7PYGLV ZN1ECnx5X0ExCabbjYM+PC90 BTSwHA88bHQhnOVqx8zasYf4 JzEw SBEuOKR9eIelSXlvc0WyZDAk W73ucHZfm4L9NLKauZslbXMp OyKypPS9cX1wPQrqzreku1im dzsn Ddaqd8cprd00aO99Z02zCRay MMGlKWC1TXCxAKLtvEoxoz4d wZ3zXt2+HGirb9gnh7fawPl8 IjIw EDMqaxGhgRwfTTN1e9XkBp48 N5RnjEzkz4IjAar1hs08rEAf e6E7bRB5DHaeJEUgiA2lPTvu ZnQ6 XJKrZcGwrZ32eAJtSWicCy9w lCwnkThnCW8mHCVedxlvUBFk pJ5iJVMmbNNmaIhvSX0qCEOf bjtm v180MxFzIFK1OECsvVSmL8Pi nR1vQnWqGGYyQIUoF1GfiJTq GOrvF635FWezTtO1XVQasdXy Y2Fs NCIyqRewKzG7w4Y9Pq9Da9Tw ofxjGOS3BWnfUIX7RnUeIiKg VoF9S7HhLcr9ZLAkcSodQM8w J3Bh CSClnlmbakfbxHQ5MOTbWHWk lG96hMEbNLrjIv4ag6D8j368 SBTgMJHwtX23Ew0ibDpwTEDv dCBU mH1xxcltk4puksnmUeXxQZXo QKe4VSn6RKLpdFqqVqYcJVJ3 TeU1GBX6zOGlfB7ooRqutrsf dG9w Oyc+X62smE5zAHB6KWH7lrhz JBAloxWrNI60US94G6ArMbhe dGFibGU+RFNbscQprAvyEU9i YmFj i7xhq3ZvTTrkS6CwJFIpMOhk Bei9ONVkMWA1kLL8kR4cCNEo ITnan2Z1mCS2C5CdexIbng3z b2xs KPIpNZvnZ08yaZPfw4A7MKOi mJX3XSRuuIxxHmAcrE58Wtv+ VQNxzUkue7RjYyfke5okc7gi dGg9 IwRrWNDqstUzeWojWYG0g7Vv Om65O49oTQuvNCBuODJtDQWm AWVufVevro5rtA5lBs0+PGNv bCB3 kST7kL9nWSCoNtK4BOtbU761 OcIcnGRiJftth2hpi1yxtEr9 FiRuHIVqmuLlfHtfVHD9c5Ab Lz48 V78nCItfFONiTVIcWMZqXPPp zWzmkr7crD5lTb4+UD8bw6wu cz00tX77bSJ+TREkNAW3eDfe PSdw UNWxhE4lZRjaFqO0BWWuTxMs kR95dBHyCKuyGl4qrBzltGkc MC3cFKZgykiax617ThQzv3fp IDEw hNCtGHvdQXC5N43tz9W4TDZk GILqHTH8eRA8zA2giVezgipm bGVmdDsgdmVydGljYWwtYWxp Z246 IHRvcDsnPlBhdGllbnQgTmFt KTv6Z4FvYda8JXWtiFmzOF0e pVFgJEdbPp8vxLzelDteWG4b NTBp nnxve620JbNpe8gcMFLtoSFi CQuoQPX5A68tc5D7EQAhKTWq MUJ3fCE3hU4ksZhqkdcauWSx dDsg ayIvpGyeECdtHOivG359DWRo sQrvReSeodIlQYDbpJT6AZ81 AF43gZWms7B1kTU0N9LkQWUk bmct audjxNW0OVWoPNTskB11Sa6j oOatVe9dMHCwIRL7SSBkqMWs N0GurG1gMgIpYUPiUDUfM6Oj eHQt NPblN627ADsnEiH5VVKbriGd E8UfOPXuiItoSaW5t4K2Km4K R9H3DY22LR03eQMyx2P4sTI3 J3Bh PBYacmtiticwcFN2RIWzGJGn eC41Hi3rtPiuGa4jRSQfGYN2 DGIyvEBqV9WllV0vZrJdLQKp MDAw S1HgqYMbVHzoT065VUgaFaB9 GGBqqbWiJ7IxWCPlnHleHhM6 c8L3Gk8FUTf9CB08HC70iOAr c3R5 bNB2J4WcLNVszeavamneqBZ5 BMSxBGKceT24Qr3pmNfmJq7u EMXuPKL6CYRdsMKhX8CqaU6f OiAj IWKvSIDiX4OnlDSdQYzqW969 VXmeDyB0TSDijhIeJ8MzMBJn hSsgMyQ8w5I5Ob1CXHIhOV01 IFR5 oOY7XS98HJ29A3DyCxjhnKSn bGU+PHRhYmxlIHdpZHRoPScx NHNwZeFkaRhpWB8uFi7tCOWc LWNv mIionGPzMoWjh6baUADuUGlr FV8bgBljM3OjuNI1RJSay5z4 Gf36P05cR7CltVA+PGNvbCB3 aWR0 qO7vYlKcRwL4OTzsI097ZhAu aMZyAzyuf9ujy3hbpRg3BxT0 XGZsbrTcjPlsIQW4u8YhTo56 Y29s IHdpZHRoPSIxNSUiIHZhbGln ib1saY2pNo6+BVMwePI4oRE7 wB4sZeEhHtO2BKxnX890OvRy cCIv Kmhth8jfq5latRb9IsOgQSNl daZakRdgZYK4l5WfRt75P9Qs iBacb4DeMud7oi15sFKer9A1 bGU9 F3OcVFQzrtudbGEwoEljTN0d QJRldzbaEVRqwD6bIJTyM8d6 HiVtXaA6JTgrX9WboxK1LUPb cHQg ZLmtOKN3W36yk2P7FUIiBSCr WNJ2dUF7eQ3faGopmqhwgIMz cHmcwlImjUgaNJxoTBxmN622 IHRv hZygQBVcxX3tVKQcmGBftHhc GO6lYKFnbddgRkxFF5zZXH0L LCBHUkVUVEEgQTwvdGQ+PHRk IHN0 xYjgJImrTAQsvP1xUNHvE5c8 HbHpQzL7NZbdI5XuRYYkkmqz Am09rJ0lXcRzKoI1OTlfC5Wk bnQ6 DMIzvTDiVVndHNS0H63po2C6 ZMVqRBXjZLF5yYK1iR9osVcx bjogbGVmdDsgdmVydGljYWwt YWxp I077LLYkdBajAhQvSqVuCmT2 IVX5Q2TeDcv7MNAubHzjTN5j jOYfMSryIa1rkGlplTrgBB5u NTBp njzzRQFyhN7nYKLzoIEibCbj YE7hIEZhpyriz845HpAgLYD9 YUHioJLuF1BwjQ5xOdBlUIZq MDAw A2AnaIXqAMiuL397EPhpFjK0 SEPpgaDzV9EiBIYmkNuqBxQ9 y5X5Ud88OkJGXMVsjsxmwWG+ PHRk TGN7zDoxLLekZQYbfG0jSEYo S5n1AwXoReM2RBwkD8MtVTCi vrooTu27xK4sXvKxMoL2VVkh O2Zv lwG4EIVvtMGnPYodMBU0K00j j2Y0ECQmYMQeWIE1hMW6aG5o bGlnbjogbGVmdDsgdmVydGlj YWwt GRecQ948ZNTpeAtiIjGupEAu ZTwvdGQ+VWZwMNU9hUwiQEwu PTSfqM2eLTBkB5y2MgHfLwN0 MGlu Q4QcYQChyfeeRb06sC2wYwFn HaS2PCbdK3PfchF0YHTkwHZq CIvlMPC4X13pv6J9ZAUjKCDs MDA7 xJC1mW3nxDwqakpxwAPzpWtp vfMpjCryVHmsAEkjP115TOVr pXmhFj07mYHmiTsskiW7X2Pv Pjwv dHI+CU67UBTjSF94hRQskTFp i6oyoUv2YgQkQCDvSUQ6qFji VJjuu1OrPOSyM16tyLBuj9Z1 IGNv tHqvxUKnXrQnlLZ9kN8cHQfr nzfxq1koexvqDotjs3dtxo25 rE59A71eXPduBAUiNRXaSGOo IHZh iAyhek2zlX8tBu5+PGNvbCB3 dCK9cH8tOxLjIxL0WFuyJ758 SeWlfPFrDrvia5nbo2mtdIp1 IjIw VKVwimPqnJyfJAM6u6UvJk61 F64yIBffKSHeSPWyIHPqCEZo cBamuv0dpL6vKn9+RU5uc2hj cm91 oL25rOG+QGWgEID8dRdwBPwl EHMinY0kGCgdNmD8RJAuJxWv jH03xCAyCWnpFf8bwIvsaErv MC4w QYGlofjvi032SoCrh5atXOUy vYZsUVstBAA5D03ou3B6WIHt BPCnGHV7gAJ6iR9tbMutccwg bGVm yOuihkWwqQvnYLsnEZfgX155 THDuvHohAlDylWSyZ8jxdhVK HW9eNtbbzER+DFIpWLP4yMih PSdw ECBufJ2aRMBjA4u2OfTyHfU8 TSilV3RgfaX5WFSyxLHeTTVy bAUMkE4nrbosx7fjgfgsYvVm MDAw SWi3JSz0VUFksPvfDnRiGXW6 MrG2ZDD5yVAiuZ0hgPpyvbxe cG4mYkg+RklOOjwvdGQ+PHRk IHN0 tRrzGDoeRJTflR6rOIZbH1b0 QhWsUvJ8SVnhH3WcwrE2CDFc jDPzYJRwxXGRtM6chcdcy9jy cjog YtInLLIhTPx0YNr3PUOdoVzf IiWjPGI2FyU6ZXB2bXWprG7w eWnuiqtsgL7dKzj+TVJOOjwv dGQ+ LFOpSFZ7sXwnCCyxQOVluO2e QGHuU1l8CdDjIjR5UInfV2Gn hoC0TEGghNWtVCSmhHCEtN6m cztj m0qblkxaPoBjZNOjJXs4FDy1 HPXocDghPlTyYMV4TiA1VYT3 uUCbvB2vxNtnucxwnF5jDtq+ UGF5 OJY1WO74FP79B5RfKnnimFQn bGU+PHRhYmxlIHdpZHRoPScx EFFiFrIijIuuDG9jRq8nXVAi LWNv bGxh (more content not included)... [facility] Consent for Procedure/Surger yon 06-15-2020 Consent for Procedure/Surgery [id number]#1.00CD :127 [facility] Consent for Treatmenton 05-26 Consent for Treatment [id number]#1.00CD: 127 [facility] Discharge Instructionson Discharge Instructions [id number]#1.00CD :127 [facility] IntraOperative Documentson 0 06-15-2020 IntraOperative Documents [id number]#1.00CD :127 [facility] Main OR Intraoperative Recor don 06-15-2020 Main OR Intraoperative Record IntraOp Document Type FTURO Summary Primary Physician: Jude Finley Jr., MD Finalized Date/Time: 06/15/20 15:02:47 Pt. Name: ZACHARY MAYNARD Srinath Cordero/Sex: 1945 Female Med Rec #: [id number] Physician: Jude Finley Jr., MD Financial #: [id number] Pt. Type: O Room/Bed: / Admit/Disch: 06/15/20 13:40:05 - Institution: Case Times FTURO Entry 1 Patient Times In Room 06/15/20 14:48:00 Out Room 06/15/20 15:02:00 Procedure Times Start 06/15/20 14:50:00 Stop 06/15/20 14:52:00 Anesthesia Times Last Modified By: Sirisha Manuel RN 06/15/20 15:02:42 Case Attendance FTURO Entry 1 Entry 2 Entry 3 Case Attendee Tushar Nunez MD, Jude Farias [facility], Pauly Manuel RN, Sirisha Douglass Role Performed Surgeon - Primary Scrub - Primary Engineering And Operations Director - Primary Time In 06/15/20 14:48:00 06/15/20 [...] Jude Finley Jr., MD, Verified (If [facility]) Sirisha Manuel RN Time Out [...] By: Sirisha Manuel RN 06/15/20 15:02 [facility] Main OR Preoperative Recordo n 06-15-2020 Main OR Preoperative Record Holding Area Document Type FTURO Summary Primary Physician: Jude Finley Jr., MD Finalized Date/Time: 06/15/20 14:34:27 Pt. Name: ALEYDA, ZACHARY Yo D.O.B./Sex: 1945 Female Med Rec #: [id number] Physician: Jude Finley Jr., MD Financial #: [id number] Pt. Type: O Room/Bed: / Admit/Disch: 06/15/20 [...] 14:25 Sirisha Manuel RN 06/15/20 14:34 [facility] Operative Reporton Operative Report Patient: ZACHARY [...] urine. The Urethra was dilated to: 24 [place] Islander w/ sounds. Devices Implanted: None. Removal: Cystoscope is removed, The patient tolerated it well. Postoperative Information Discharge: Patient is discharged home with antibiotic coverage, Follow up arranged, Office visit will be planned to make arrangements for repair of cystocele.. [facility] Comment on above: Result Comment: Elec tronically Signed By: Jude Finley Jr., MD\.br\Date and Time Signed: 06/15/20 14:59 EDT Pre-Authorization for Medica l Treatmenton 06-13-2020 Pre-Authorization for Medical Treatment [id number]#1.00CD :127 [facility] Ambulatory Clinical Summaryo n 06-12-2020 Ambulatory Clinical Summary {[id number] }CD:[id number] [facility] Patient Educationon 06-13-19 Patient Education Urology [...] stimulation). ? For women, using a medical technologist hematology to prevent urine leaks. This is a [...] after experiencing incontinence. General instructions ? Take feop-qvm-gdihrvm and prescription medicines only as (more content not included)... [facility] Urology Office/Clinic Noteon 06-12-2020 Urology Office/Clinic Note Chief Complaint Patient is here for a follow up to [facility] for ball like object HPI Staff Zachary is a 75 y.o. female here for follow up to [place] [facility] for bladder hanging out, patient insists on planning surgery. Previous Dx: bladder infection, bladder outlet obstruction, dysuria, flank pain, gross hematuria, history of UTI, retention of urine, urethral stricture. 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 Patient was seen at [place] [facility] on 06/07/20 for a ball like [...] When Contact Information Jude Finley Jr., MD [phone] Additional Instructions: Patient Education Urinary Incontinence I, [...] Gross hematuria (more content not included)... [facility] Comment on above: Result Comment: Elec tronically Signed By: Jude Finley Jr., MD\.br\Date and Time Signed: 06/12/20 10:30 EDT\.br\Electronically Co-Signed By: Anastasia Cabral\.br\Date and Time Co-Signed: 06/12/20 10:24 EDT Coding Summary.on 05-23-2020 Coding Summary. CODING DATE: 021 [facility] STATUS: Home (Routine DC) PAYOR: Medicare APC [...] Ryann Villegas Date Saved: 05/23/2020 09:34 am [facility] Consenton 05-22-2020 Consent [id number]#1.00CD: 127 [facility] Consent for Procedure/Surger yon 05-18-2020 Consent for Procedure/Surgery [id number]#1.00CD :127 [facility] Consent for Treatmenton 04-25 Consent for Treatment [id number]#1.00CD :127 [facility] Consent for Treatment [id number]#1.00CD: 127 [facility] Discharge Instructionson Discharge Instructions [id number]#1.00CD :127 [facility] IntraOperative Documentson 0 05-18-2020 IntraOperative Documents [id number]#1.00CD :127 [facility] Main OR Intraoperative Recor don 05-18-2020 Main OR Intraoperative Record IntraOp Document Type FTURO Summary Primary Physician: Jude Finley Jr., MD Finalized Date/Time: 05/18/20 14:11:35 Pt. Name: MARIAMA MAYNARD/Sex: 1945 Female Med Rec #: [id number] Physician: Jude Finley Jr., MD Financial #: [id number] Pt. Type: O Room/Bed: / Admit/Disch: 05/18/20 [...] Kimberly A Role Performed Surgeon - Primary Engineering And Operations Director - Primary Scrub - Primary Time In [...] Glasgow RN, Lou Ann 05/18/20 14:11 [facility] Main OR Preoperative Recordo n 05-18-2020 Main OR Preoperative Record Holding Area Document Type FTURO Summary Primary Physician: Jude Finley Jr., MD Finalized Date/Time: 05/18/20 13:59:17 Pt. Name: MARIAMA MAYNARD /Sex: 1945 Female Med Rec #: [id number] Physician: Jude Finley Jr., MD Financial #: [id number] Pt. Type: O Room/Bed: / Admit/Disch: 05/18/20 [...] Glasgow RN, Lou Ann 05/18/20 13:59 [facility] Operative Reporton Operative Report Patient: Karl [...] urine. The Urethra was dilated to: 28 [place] Islander w/ sounds. Devices Implanted: None. Removal: Cystoscope is removed, The patient tolerated it well. Postoperative Information Discharge: Patient is discharged home with antibiotic coverage, Follow up arranged. [facility] Comment on above: Result Comment: Elec tronically Signed By: Tushar Nunez MD, Jude Farias\.br\Date and Time Signed: 05/18/20 14:02 EDT Ambulatory Clinical Summaryo n 05-11-2020 Ambulatory Clinical Summary {[id number] }CD:[id number] [facility] Patient Educationon 05-12-19 21 Patient Education [...] It is (more content not included)... [facility] Urology Office/Clinic Noteon 05-11-2020 Urology Office/Clinic [...] Will order Local anesthesia. ABX sent to [facility] in [place]. 2. Retention of urine (R33.9: Retention of [...] procedure, # 2 cap(s), Refills(s) 0, Pharmacy: [facility]/pharmacy #[id number], 163, cm, 05/11/20 8:31:00 EDT, Height/Length Dosing, 64.2, kg, 05/11/20 8:31:00 EDT, W... Measure Post Void residual urine and/or bladder capacity by US- non-imaging 54179 Urnls Dip Stick Auto w/o Microscopy POC 01566 I have reviewed the previous health record information and history for this pt. from Dr. Finley. Follow-up With When Contact Inf (more content not included)... [facility] Comment on above: Result Comment: Elec tronically Signed By: Tushar Nunez MD, Jude Farias\.br\Date and Time Signed: 05/11/20 10:45 EDT\.br\Electronically Co-Signed By: Kisha Stevens MA\.br\Date and Time Co-Signed: 05/11/20 08:53 EDT Ambulatory [facility] [place] 01-04-2020 Ambulatory Clinical Summary {[id number] }CD:[id number] [facility] Patient Educationon 01-04-20 20 Patient Education [...] to a urinary tract infection. Only take wmrt-scq-nvqydww or prescription medicines for pain, discomfort, or fever as directed by your caregiver. SEEK IMMEDIATE MEDICAL CARE IF: You develop chills, fever, or show signs of generalized illness that occurs prior to seeing your caregiver. Document Released: 02/09/2007 Document Revised: 05/04/2012 Document Reviewed: 01/12/2010 ExitCare? Patient Information ?2013 [employer] [facility] Urology Office/Clinic Noteon 01-04-2020 Urology Office/Clinic Note Chief Complaint f/u to cysto UD This patient is a 74-year-old female with a history of gross hematuria and urinary tract infection. She had a recent cystoscopic examination that showed no evidence of malignancy. She was treated by her primary care physician for another urinary tract infection. [facility] Staff Pt is here for f/u to [...] Urnls Dip Stick Auto w/o Microscopy POC 44013 3. Dysuria (R30.0: Dysuria) Mild burning w/ urination. I have reviewed the previous health record information and history for this pt. from Dr. Finley. Follow-up With When Contact Information Jude Finley Jr., MD [address] [place] [address]- Additional Instructions: 1mos. w/ pVR Patient Education [...] mg T (more content not included)... [facility] Comment on above: Result Comment: Elec tronically Signed By: Tushar Nunez MD, Jude Farias\.br\Date and Time Signed: 01/04/20 12:26 EST\.br\Electronically Co-Signed By: Kisha Stevens MA\.br\Date and Time Co-Signed: 01/04/20 12:01 EST Operative Reporton 0 Operative Report [id number]#1.00CD :127 [facility] Cult,Bloodon 10-18-2019 Cult,Blood Specimen Description .BLOOD Special Requests 3ML LT A.C. Culture NO GROWTH 6 DAYS Report Status FINAL 10/18/2019 Normal [facility] Comment on above: Performed By: #### C DP, CP, LIP, TROPI, LIPRF, GLYHGB #### [facility] [address] [place] [address] Blueprint Cutter: Brandon Anaya MD Cult,Blood Specimen Description .BLOOD Special Requests back lt arm 3ml Culture NO GROWTH 6 DAYS Report Status FINAL 10/18/2019 [facility] Comment on above: Performed By: #### C DP, CP, LIP, TROPI, LIPRF, GLYHGB #### [facility] [address] [place] [address] [id number] Blueprint Cutter: Brandon Anaya MD Cult,Urineon 10-18-2019 Cult,Urine Specimen Description .CLEAN CATCH URINE Special Requests NOT REPORTED Culture STAPHYLOCOCCUS SPECIES, COAGULASE NEGATIVE >[id number] CFU/ML Report Status FINAL 10/17/2019 SUSCEPTIBILITY Organism [...] Trimethoprim/Sulfa 20 SUSCEPTIBLE Vancomycin 1 SUSCEPTIBLE [facility] Comment on above: Performed By: #### C DP, CP, LIP, TROPI, LIPRF, GLYHGB #### [facility] [address] [place] [phone] Blueprint Cutter: Brandon Anaya MD Basic Metab w/rfx MGon 10-15 (cont.) [facility] Comment on above: Result Comment: Aver age GFR for 70 or more years old: 75 mL/min/1.73sq m Chronic Kidney Disease: <60 mL/min/1.73sq m Kidney failure: <15 mL/min/1.73sq m eGFR calculated using average adult body mass. Additional eGFR calculator available at: http://www.Bookmycab.com/multiple_crcl_2012.htm Performed By: #### C DP, CP, LIP, TROPI, LIPRF, GLYHGB #### [facility] [address] [place] [address] Blueprint Cutter: Brandon Anaya MD Anion gap [Moles/Vol] 13 mmol/L Normal 9-17 [facility] Comment on above: Performed By: #### C DP, CP, LIP, TROPI, LIPRF, GLYHGB #### [facility] [address] [place] [phone] Blueprint Cutter: Brandon Anaya MD Calcium [Mass/Vol] 8.6 mg/dL Normal 8.6-10.4 [facility] Comment on above: Performed By: #### C DP, CP, LIP, TROPI, LIPRF, GLYHGB #### [facility] [address] [place] [address] Blueprint Cutter: Brandon Anaya MD Chloride [Moles/Vol] 97 mmol/L Low 98-107 [facility] Comment on above: Performed By: #### C DP, CP, LIP, TROPI, LIPRF, GLYHGB #### [facility] [address] [place] [address] Blueprint Cutter: Brandon Anaya MD CO2 [Moles/Vol] 25 mmol/L Normal 20-31 [facility] Comment on above: Performed By: #### C DP, CP, LIP, TROPI, LIPRF, GLYHGB #### [facility] [address] [place] [id number] [employer] Cutter: Brandon Anaya MD Creatinine [Mass/Vol] 0.42 mg/dL Low 0.50-0.90 [facility] Comment on above: Performed By: #### C DP, CP, LIP, TROPI, LIPRF, GLYHGB #### [facility] [address] [place] [id number] [employer] Cutter: Brandon Anaya MD GFR, Amer >60 Normal >60 [facility] Comment on above: Performed By: #### C DP, CP, LIP, TROPI, LIPRF, GLYHGB #### [facility] [address] [place] [phone] [employer] Cutter: Brandon Anaya MD GFR,non Amer >60 Normal >60 [facility] Comment on above: Performed By: #### C DP, CP, LIP, TROPI, LIPRF, GLYHGB #### [facility] [address] [place] [id number] [employer] Cutter: Brandon Anaya MD Glucose [Mass/Vol] 87 mg/dL Normal 70-99 [facility] Comment on above: Performed By: #### C DP, CP, LIP, TROPI, LIPRF, GLYHGB #### [address] [address] [employer] Cutter: Brandon Anaya MD Potassium [Moles/Vol] 3.7 mmol/L Normal 3.7-5.3 [facility] Comment on above: Performed By: #### C DP, CP, LIP, TROPI, LIPRF, GLYHGB #### [facility] [address] [place] [id number] [employer] Cutter: Brandon Anaya MD Sodium [Moles/Vol] 135 mmol/L Normal 135-144 [facility] Comment on above: Performed By: #### C DP, CP, LIP, TROPI, LIPRF, GLYHGB #### [facility] [address] [place] [phone] [employer] Cutter: Brandon Anaya MD Urea nitrogen [Mass/Vol] 14 mg/dL Normal 8-23 [facility] Comment on above: Performed By: #### C DP, CP, LIP, TROPI, LIPRF, GLYHGB #### [facility] [address] [place] [phone] [employer] Cutter: Brandon Anaya MD BUN/CRE Ratio NOT REPORTED Normal 9-20 [facility] Comment on above: Performed By: #### C DP, CP, LIP, TROPI, LIPRF, GLYHGB #### [facility] [address] [place] [address] [employer] Cutter: Brandon Anaya MD Staging: NOT REPORTED Normal [facility] Comment on above: Performed By: #### C DP, CP, LIP, TROPI, LIPRF, GLYHGB #### [facility] [address] [place] [address] [employer] Cutter: Brandon Anaya MD Basic Metabolic Panel w/ Ref kervin to MGon 10-16-2019 Anion gap [Moles/Vol] 13 mmol/L 9 - 17 mmol/L [place] Bun/Cre Ratio NOT REPORTED [place] Calcium [Mass/Vol] 8.6 mg/dL 8.6 - 10. 4 mg/dL [place] Chloride [Moles/Vol] 97 mmol/L Low 98 - 10 7 mmol/L [place] CO2 [Moles/Vol] 25 mmol/L 20 - 31 mmol/L [place] Creatinine [Mass/Vol] 0.42 mg/dL Low 0.5 - 0.9 mg/dL [place] GFR >60 >60 mL/min [place] GFR Non- >60 >60 mL/min [place] GFR/1.73 sq M predicted among non-blacks MDRD (S/P/Bld) [Vol rate/Area] [place] Comment on above: Average GFR for 70 o r more years old: 75 mL/min/1.73sq m Chronic Kidney Disease: <60 mL/min/1.73sq m Kidney failure: <15 mL/min/1.73sq m eGFR calculated using average adult body mass. Additional eGFR calculator available at: http://[email or web address].opendorse/multiple_crcl_2012.htm GFR/1.73 sq M predicted among non-blacks MDRD (S/P/Bld) [Vol rate/Area] NOT REPORTED [place], [place] Glucose [Mass/Vol] 87 mg/dL 70 - 99 mg/dL [place], [place] Interpretation and review of laboratory results Abnormal [place] Potassium [Moles/Vol] 3.7 mmol/L 3.7 - 5.3 mmol/L [place] Sodium [Moles/Vol] 135 mmol/L 135 - 144 mmol/L [place] Urea nitrogen [Mass/Vol] 14 mg/dL 8 - 23 mg/dL [place] CBC auto differentialon 09-25 Basophils (Bld) [#/Vol] 0.04 10*3/uL [place] Basophils/100 WBC (Bld) 0 % 0 - 2 % [place] Differential Type NOT REPORTED [place] Eosinophils (Bld) [#/Vol] 0.10 10*3/uL [place] Eosinophils/100 WBC (Bld) 1 % 1 - 4 % [place] Erythrocyte distribution width (RBC) [Ratio] 14.6 % High 11.8 - 14.4 % [place] Hematocrit (Bld) [Volume fraction] 40.2 % 36.3 - 47.1 % [place] Hemoglobin (Bld) [Mass/Vol] 12.6 g/dL 11.9 - 15.1 g/dL [place] Immature granulocytes (Bld) [#/Vol] 0.08 10*3/uL [place] Immature granulocytes (Bld) [#/Vol] 1 % High 0 [place] Interpretation and review of laboratory results Abnormal [place] Lymphocytes (Bld) [#/Vol] 3.05 10*3/uL [place] Lymphocytes/100 WBC (Bld) 32 % 24 - 43 % [place] MCH (RBC) [Entitic mass] 29.0 pg 25.2 - 33.5 pg [place] MCHC (RBC) [Mass/Vol] 31.3 g/dL 28.4 - 34.8 g/dL [place] MCV (RBC) [Entitic vol] 92.4 fL 82.6 - 102.9 fL [place] Monocytes (Bld) [#/Vol] 0.76 10*3/uL [place] Monocytes/100 WBC (Bld) 8 % 3 - 12 % [place] Platelet mean volume (Bld) [Entitic vol] 10.6 fL 8.1 - 13.5 fL [place] Platelets (Bld) [#/Vol] 216 10*3/uL [place] Platelets (Bld) [#/Vol] NOT REPORTED [place] RBC (Bld) [#/Vol] 4.35 10*6/uL 3.95 - 5.1 1 m/uL [place] RBC morphology finding Nom (Bld) ANISOCYTOSIS PRESENT [place] Segmented neutrophils/100 WBC (Bld) 58 % 36 - 65 % [place] Segs Absolute 5.61 [place] WBC (Bld) [#/Vol] 9.6 10*3/uL [place] WBC (Bld) [#/Vol] 0.0 10*3/uL 0.0 per 10 0 WBC [place] WBC Morphology NOT REPORTED [place] CBC with Diffon 10-16-2019 Abs. Basophil 0.04 k/uL Normal 0.00-0.20 [facility] Comment on above: Performed By: #### C DP, CP, LIP, TROPI, LIPRF, GLYHGB #### [facility] [address] [place], [place] [id number] [employer]print Cutter: Brandon Anaya MD Abs.Imm.Granulocyte 0.08 k/uL Normal 0.00-0.30 [facility] Comment on above: Performed By: #### C DP, CP, LIP, TROPI, LIPRF, GLYHGB #### [facility] [address] [place], [place] [phone] [employer]print Cutter: Brandon Anaya MD Abs.Neutrophil (Seg) 5.61 k/uL Normal 1.50-8.10 [facility] Comment on above: Performed By: #### C DP, CP, LIP, TROPI, LIPRF, GLYHGB #### [address] [address] [employer] Cutter: Brandon Anaya MD Basophils/100 WBC (Bld) 0 % Normal 0-2 [facility] Comment on above: Performed By: #### C DP, CP, LIP, TROPI, LIPRF, GLYHGB #### [address] [address] [employer] Cutter: Brandon Anaya MD Eosinophils (Bld) [#/Vol] 0.10 10*3/uL Normal 0.00-0.44 [facility] Comment on above: Performed By: #### C DP, CP, LIP, TROPI, LIPRF, GLYHGB #### [address] [address] [employer] Cutter: Brandon Anaya MD Eosinophils/100 WBC (Bld) 1 % Normal 1-4 [facility] Comment on above: Performed By: #### C DP, CP, LIP, TROPI, LIPRF, GLYHGB #### [place] [address] [employer] Cutter: Brandon Anaya MD Erythrocyte distribution width (RBC) [Ratio] 14.6 % High 11.8-14.4 [facility] Comment on above: Performed By: #### C DP, CP, LIP, TROPI, LIPRF, GLYHGB #### [place] [address] [employer] Cutter: Brandon Anaya MD Hematocrit (Bld) [Volume fraction] 40.2 % Normal 36.3-47.1 [facility] Comment on above: Performed By: #### C DP, CP, LIP, TROPI, LIPRF, GLYHGB #### [address] [address] [employer] Cutter: Brandon Anaya MD Hemoglobin (Bld) [Mass/Vol] 12.6 g/dL Normal 11.9-15.1 [facility] Comment on above: Performed By: #### C DP, CP, LIP, TROPI, LIPRF, GLYHGB #### [address] [address] [employer]print Cutter: Brandon Anaya MD Immature granulocytes (Bld) [#/Vol] 1 % High 0 [facility] Comment on above: Performed By: #### C DP, CP, LIP, TROPI, LIPRF, GLYHGB #### [address] [address] [employer] Cutter: Brandon Anaya MD Lymphocytes (Bld) [#/Vol] 3.05 10*3/uL Normal 1.10-3.70 [facility] Comment on above: Performed By: #### C DP, CP, LIP, TROPI, LIPRF, GLYHGB #### [place] [address] [employer] Cutter: Brandon Anaya MD Lymphocytes/100 WBC (Bld) 32 % Normal 24-43 [facility] Comment on above: Performed By: #### C DP, CP, LIP, TROPI, LIPRF, GLYHGB #### [address] [address] [employer]print Cutter: Brandon Anaya MD MCH (RBC) [Entitic mass] 29.0 pg Normal 25.2-33.5 [facility] Comment on above: Performed By: #### C DP, CP, LIP, TROPI, LIPRF, GLYHGB #### [address] [address] [employer]print Cutter: Brandon Anaya MD MCHC (RBC) [Mass/Vol] 31.3 g/dL Normal 28.4-34.8 [facility] Comment on above: Performed By: #### C DP, CP, LIP, TROPI, LIPRF, GLYHGB #### [address] [address] [employer]print Cutter: Brandon Anaya MD MCV (RBC) [Entitic vol] 92.4 fL Normal 82.6-102.9 [facility] Comment on above: Performed By: #### C DP, CP, LIP, TROPI, LIPRF, GLYHGB #### [address] [address] [employer] Cutter: Brandon Anaya MD Monocytes (Bld) [#/Vol] 0.76 10*3/uL Normal 0.10-1.20 [facility] Comment on above: Performed By: #### C DP, CP, LIP, TROPI, LIPRF, GLYHGB #### [address] [address] [employer] Cutter: Brandon Anyaa MD Monocytes/100 WBC (Bld) 8 % Normal 3-12 [facility] Comment on above: Performed By: #### C DP, CP, LIP, TROPI, LIPRF, GLYHGB #### [address] [address] [employer] Cutter: Brandon Anaya MD Neutrophil (Seg) 58 % Normal 36-65 [facility] Comment on above: Performed By: #### C DP, CP, LIP, TROPI, LIPRF, GLYHGB #### [address] [address] [employer] Cutter: Brandon Anaya MD NRBC Automated 0.0 per 100 WBC Normal 0.0 [facility] Comment on above: Performed By: #### C DP, CP, LIP, TROPI, LIPRF, GLYHGB #### [address] [address] [employer]print Cutter: Brandon Anaya MD Platelet mean volume (Bld) [Entitic vol] 10.6 fL Normal 8.1-13.5 [facility] Comment on above: Performed By: #### C DP, CP, LIP, TROPI, LIPRF, GLYHGB #### [address] [address] [employer]print Cutter: Brandon Anaya MD Platelets (Bld) [#/Vol] 216 10*3/uL Normal 138-453 [facility] Comment on above: Performed By: #### C DP, CP, LIP, TROPI, LIPRF, GLYHGB #### [address] [address] [employer] Cutter: Brandon Anaya MD RBC (Bld) [#/Vol] 4.35 10*6/uL Normal 3.95-5.11 [facility] Comment on above: Performed By: #### C DP, CP, LIP, TROPI, LIPRF, GLYHGB #### [address] [address] [employer]print Cutter: Brandon Anaya MD RBC morphology finding Nom (Bld) ANISOCYTOSIS PRESENT Normal [facility] Comment on above: Performed By: #### C DP, CP, LIP, TROPI, LIPRF, GLYHGB #### [address] [address] [employer] Cutter: Brandon Anaya MD WBC (Bld) [#/Vol] 9.6 10*3/uL Normal 3.5-11.3 [facility] Comment on above: Performed By: #### C DP, CP, LIP, TROPI, LIPRF, GLYHGB #### [address] [address] [employer]print Cutter: Brandon Anaya MD Auto Diff Performed NOT REPORTED Normal [facility] Comment on above: Performed By: #### C DP, CP, LIP, TROPI, LIPRF, GLYHGB #### [address] [address] [employer] Cutter: Brandon Anaya MD Platelets (Bld) [#/Vol] NOT REPORTED Normal [facility] Comment on above: Performed By: #### C DP, CP, LIP, TROPI, LIPRF, GLYHGB #### [facility] [address] [place] [address] [employer]print Cutter: Brandon Anaya MD WBC Morphology NOT REPORTED Normal [facility] Comment on above: Performed By: #### C DP, CP, LIP, TROPI, LIPRF, GLYHGB #### [facility] [address] [place] [address] [employer] Cutter: Brandon Anaya MD MRI LUMBAR SPINE W [...] Tiffany Lindsay MD 10/15/19 Final result Normal [facility] POC Glucose Fingerstickon Glucose [Mass/Vol] 98 mg/dL 65 - 105 mg/dL [place] Glucose [Mass/Vol] 107 mg/dL High 65 - 105 mg/dL [place] Interpretation and review of laboratory results Abnormal [place] Glucose [Mass/Vol] 81 mg/dL 65 - 105 mg/dL [place] URINALYSIS WITH MICROSCOPICo n 10-16-2019 Amorphous, UA NOT REPORTED None [place] Bacteria, UA MODERATE Abnormal None [place] Bilirubin Urine Negative NEGATIVE [place] Casts UA 0 TO 2 HYALINE Refer ence range defined for non-centrifuged specimen. [place] Color, UA YELLOW YELLOW [place] Crystals, UA NOT REPORTED None /HPF [place] Epithelial Cells UA 0 TO 2 [place] Glucose, Ur Negative NEGATIVE [place] Interpretation and review of laboratory results Abnormal [place] Ketones Ql (U) SMALL Abnormal NEGATIVE [place] Leukocyte esterase Test strip Ql (U) Negative NEGATIVE [place] Mucus, UA NOT REPORTED None [place] Nitrite, Urine Negative NEGATIVE [place] Other Observations UA NOT REPORTED NOT REQ. M [place] pH, UA 8.0 [place] Protein (U) [Mass/Vol] Negative NEGATIVE [place] RBC (U) [#/Vol] 2 TO 5 [place] Comment on above: Reference range defi nya for non-centrifuged specimen. Renal Epithelial, UA NOT REPORTED 0 /HPF [place] Specific [place], UA 1.006 [place] Trichomonas, UA NOT REPORTED None [place] Turbidity UA CLOUDY Abnormal CLEAR [place] Urine Hgb Negative NEGATIVE [place] Urobilinogen, Urine Normal Normal [place] WBC, UA 0 TO 2 [place] Yeast, UA NOT REPORTED None [place] Urinalysis w/ Microon 2019 ----- Normal [facility] Comment on above: Performed By: #### C DP, CP, LIP, TROPI, LIPRF, GLYHGB #### [facility] [address] [place] [address] [employer] Cutter: Brandon Anaya MD Acetoacetic Acid,Ur SMALL Abnormal NEG [facility] Comment on above: Performed By: #### C DP, CP, LIP, TROPI, LIPRF, GLYHGB #### [facility] [address] [place] [address] [employer] Cutter: Brandon Anaya MD Bacteria LM.HPF (Urine sed) [#/Area] MODERATE Abnormal NONE [facility] Comment on above: Performed By: #### C DP, CP, LIP, TROPI, LIPRF, GLYHGB #### [facility] [address] [place] [address] [employer] Cutter: Brandon Anaya MD Bilirubin, SemiQt,Ur Negative Normal NEG [facility] Comment on above: Performed By: #### C DP, CP, LIP, TROPI, LIPRF, GLYHGB #### [address] [address] [employer] Cutter: Brandon Anaya MD Casts LM.LPF (Urine sed) [#/Area] 0 TO 2 HYALINE Normal 0-8 [facility] Comment on above: Result Comment: Refe rence range defined for non-centrifuged specimen. Performed By: #### C DP, CP, LIP, TROPI, LIPRF, GLYHGB #### [address] [address] [employer] Cutter: Brandon Anaya MD Color (U) YELLOW Normal YEL [facility] Comment on above: Performed By: #### C DP, CP, LIP, TROPI, LIPRF, GLYHGB #### [address] [address] [employer] Cutter: Brandon Anaya MD Epithelial cells LM.HPF (Urine sed) [#/Area] 0 TO 2 Normal 0-5 [facility] Comment on above: Performed By: #### C DP, CP, LIP, TROPI, LIPRF, GLYHGB #### [address] [address] [employer] Cutter: Brandon Anaya MD Glucose Ql (U) Negative Normal NEG [facility] Comment on above: Performed By: #### C DP, CP, LIP, TROPI, LIPRF, GLYHGB #### [address] [address] [employer]print Cutter: Brandon Anaya MD Hemoglobin, Ur Negative Normal NEG [facility] Comment on above: Performed By: #### C DP, CP, LIP, TROPI, LIPRF, GLYHGB #### [address] [address] [employer] Cutter: Brandon Anaya MD Leukocyte esterase Test strip Ql (U) Negative Normal NEG [facility] Comment on above: Performed By: #### C DP, CP, LIP, TROPI, LIPRF, GLYHGB #### [address] [address] [employer]print Cutter: Brandon Anaya MD Nitrite,Ur Negative Normal NEG [facility] Comment on above: Performed By: #### C DP, CP, LIP, TROPI, LIPRF, GLYHGB #### [place] [address] [employer]print Cutter: Brandon Anaya MD pH (U) 8.0 [pH] Normal 5.0-8.0 [facility] Comment on above: Performed By: #### C DP, CP, LIP, TROPI, LIPRF, GLYHGB #### [place] [address] [employer]print Cutter: Brandon Anaya MD Protein Ql (U) Negative Normal NEG [facility] Comment on above: Performed By: #### C DP, CP, LIP, TROPI, LIPRF, GLYHGB #### [facility] [address] [place] [address] [employer] Cutter: Brandon Anaya MD RBC (U) [#/Vol] 2 TO 5 Normal 0-4 [facility] Comment on above: Result Comment: Refe rence range defined for non-centrifuged specimen. Performed By: #### C DP, CP, LIP, TROPI, LIPRF, GLYHGB #### [facility] [address] [place] [address] [employer]print Cutter: Brandon Anaya MD Specific gravity (U) [Rel density] 1.006 Normal 1.005-1.030 [facility] Comment on above: Performed By: #### C DP, CP, LIP, TROPI, LIPRF, GLYHGB #### [address] [address] [employer] Cutter: Brandon Anaya MD Turbidity CLOUDY Abnormal CLEAR [facility] Comment on above: Performed By: #### C DP, CP, LIP, TROPI, LIPRF, GLYHGB #### [facility] [address] [place] [address] [employer]print Cutter: Brandon Anaya MD Urobilinogen,Ur Normal Normal NORM [facility] Comment on above: Performed By: #### C DP, CP, LIP, TROPI, LIPRF, GLYHGB #### [address] [address] [employer]print Cutter: Brandon Anaya MD WBC (U) [#/Vol] 0 TO 2 Normal 0-5 [facility] Comment on above: Performed By: #### C DP, CP, LIP, TROPI, LIPRF, GLYHGB #### [address] [address] [employer] Cutter: Brandon Anaya MD Amorphous sediment LM Ql (Urine sed) NOT REPORTED Normal NONE [facility] Comment on above: Performed By: #### C DP, CP, LIP, TROPI, LIPRF, GLYHGB #### [address] [address] [employer]print Cutter: Brandon Anaya MD Crystals LM Nom (Urine sed) NOT REPORTED Normal NONE [facility] Comment on above: Performed By: #### C DP, CP, LIP, TROPI, LIPRF, GLYHGB #### [address] [address] [employer]print Cutter: Brandon Anaya MD Epithelial, Renal NOT REPORTED Normal 0 [facility] Comment on above: Performed By: #### C DP, CP, LIP, TROPI, LIPRF, GLYHGB #### [address] [address] [employer]print Cutter: Brandon Anaya MD Mucus Strands NOT REPORTED Normal [facility] Comment on above: Performed By: #### C DP, CP, LIP, TROPI, LIPRF, GLYHGB #### [address] [address] [employer]print Cutter: Brandon Anaya MD Other Observations NOT REPORTED Normal NREQ [facility] Comment on above: Performed By: #### C DP, CP, LIP, TROPI, LIPRF, GLYHGB #### [address] [address] [employer]print Cutter: Brandon Anaya MD Trichomonas NOT REPORTED Normal [facility] Comment on above: Performed By: #### C DP, CP, LIP, TROPI, LIPRF, GLYHGB #### [address] [address] [employer]print Cutter: Brandon Anaya MD Yeast LM Ql (Urine sed) NOT REPORTED Normal [facility] Comment on above: Performed By: #### C DP, CP, LIP, TROPI, LIPRF, GLYHGB #### [address] [address] [employer]print Cutter: Brandon Anaya MD Basic Metab w/rfx MGon 10-14 (cont.) Normal [facility] Comment on above: Result Comment: Aver age GFR for 70 or more years old: 75 mL/min/1.73sq m Chronic Kidney Disease: <60 mL/min/1.73sq m Kidney failure: <15 mL/min/1.73sq m eGFR calculated using average adult body mass. Additional eGFR calculator available at: http://www.Bookmycab.opendorse/multiple_crcl_2012.htm Performed By: #### C DP, CP, LIP, TROPI, LIPRF, GLYHGB #### [facility] [address] [place] [address] [employer]print Cutter: Brandon Anaya MD Anion gap [Moles/Vol] 14 mmol/L Normal 9-17 [facility] Comment on above: Performed By: #### C DP, CP, LIP, TROPI, LIPRF, GLYHGB #### [facility] [address] [place] [address] [employer] Cutter: Brandon Anaya MD Calcium [Mass/Vol] 8.8 mg/dL Normal 8.6-10.4 [facility] Comment on above: Performed By: #### C DP, CP, LIP, TROPI, LIPRF, GLYHGB #### [facility] [address] [place] [address] [employer]print Cutter: Brandon Anaya MD Chloride [Moles/Vol] 94 mmol/L Low 98-107 [facility] Comment on above: Performed By: #### C DP, CP, LIP, TROPI, LIPRF, GLYHGB #### [facility] [address] [place] [address] [employer]print Cutter: Brandon Anaya MD CO2 [Moles/Vol] 23 mmol/L Normal 20-31 [facility] Comment on above: Performed By: #### C DP, CP, LIP, TROPI, LIPRF, GLYHGB #### [facility] [address] [place] [address] [employer]print Cutter: Brandon Anaya MD Creatinine [Mass/Vol] 0.36 mg/dL Low 0.50-0.90 [facility] Comment on above: Performed By: #### C DP, CP, LIP, TROPI, LIPRF, GLYHGB #### [facility] [address] [place] [address] [employer]print Cutter: Brandon Anaya MD GFR, Amer >60 Normal >60 [facility] Comment on above: Performed By: #### C DP, CP, LIP, TROPI, LIPRF, GLYHGB #### [address] [address] [employer]print Cutter: Brandon Anaya MD GFR,non Amer >60 Normal >60 [facility] Comment on above: Performed By: #### C DP, CP, LIP, TROPI, LIPRF, GLYHGB #### [address] [address] [employer]print Cutter: Brandon Anaya MD Glucose [Mass/Vol] 89 mg/dL Normal 70-99 [facility] Comment on above: Performed By: #### C DP, CP, LIP, TROPI, LIPRF, GLYHGB #### [address] [address] [employer]print Cutter: Brandon Anaya MD Potassium [Moles/Vol] 3.7 mmol/L Normal 3.7-5.3 [facility] Comment on above: Performed By: #### C DP, CP, LIP, TROPI, LIPRF, GLYHGB #### [address] [address] [employer] Cutter: Brandon Anaya MD Sodium [Moles/Vol] 131 mmol/L Low 135-144 [facility] Comment on above: Performed By: #### C DP, CP, LIP, TROPI, LIPRF, GLYHGB #### [address] [address] [employer]print Cutter: Brandon Anaya MD Urea nitrogen [Mass/Vol] 16 mg/dL Normal 8-23 [facility] Comment on above: Performed By: #### C DP, CP, LIP, TROPI, LIPRF, GLYHGB #### [address] [address] [employer]print Cutter: Brandon Anaya MD BUN/CRE Ratio NOT REPORTED Normal 9-20 [facility] Comment on above: Performed By: #### C DP, CP, LIP, TROPI, LIPRF, GLYHGB #### [facility] [address] [place], [place] [phone] [employer]print Cutter: Brandon Anaya MD Staging: NOT REPORTED Normal [facility] Comment on above: Performed By: #### C DP, CP, LIP, TROPI, LIPRF, GLYHGB #### [facility] [address] [place], [place] [id number] [employer]print Cutter: Brandon Anaya MD Basic Metabolic Panel w/ Ref kervin to [facility] 10-15-2019 Anion gap [Moles/Vol] 14 mmol/L 9 - 17 mmol/L [place] Bun/Cre Ratio NOT REPORTED [place] Calcium [Mass/Vol] 8.8 mg/dL 8.6 - 10. 4 mg/dL [place] Chloride [Moles/Vol] 94 mmol/L Low 98 - 10 7 mmol/L [place] CO2 [Moles/Vol] 23 mmol/L 20 - 31 mmol/L [place] Creatinine [Mass/Vol] 0.36 mg/dL Low 0.5 - 0.9 mg/dL [place] GFR >60 >60 mL/min [place] GFR Non- >60 >60 mL/min [place] GFR/1.73 sq M predicted among non-blacks MDRD (S/P/Bld) [Vol rate/Area] [place] Comment on above: Average GFR for 70 o r more years old: 75 mL/min/1.73sq m Chronic Kidney Disease: <60 mL/min/1.73sq m Kidney failure: <15 mL/min/1.73sq m eGFR calculated using average adult body mass. Additional eGFR calculator available at: http://www.Bookmycab.opendorse/multiple_crcl_2012.htm GFR/1.73 sq M predicted among non-blacks MDRD (S/P/Bld) [Vol rate/Area] NOT REPORTED [place] Glucose [Mass/Vol] 89 mg/dL 70 - 99 mg/dL [place] Interpretation and review of laboratory results Abnormal [place] Potassium [Moles/Vol] 3.7 mmol/L 3.7 - 5.3 mmol/L [place] Sodium [Moles/Vol] 131 mmol/L Low 135 - 144 mmol/L [place] Urea nitrogen [Mass/Vol] 16 mg/dL 8 - 23 mg/dL [place] CBC auto differentialon 09-25 Basophils (Bld) [#/Vol] 0.06 10*3/uL [place] Basophils/100 WBC (Bld) 1 % 0 - 2 % [place] Differential Type NOT REPORTED [place] Eosinophils (Bld) [#/Vol] 0.13 10*3/uL [place] Eosinophils/100 WBC (Bld) 1 % 1 - 4 % [place] Erythrocyte distribution width (RBC) [Ratio] 14.6 % High 11.8 - 14.4 % [place] Hematocrit (Bld) [Volume fraction] 41.6 % 36.3 - 47.1 % [place] Hemoglobin (Bld) [Mass/Vol] 13.4 g/dL 11.9 - 15.1 g/dL [place] Immature granulocytes (Bld) [#/Vol] 1 % High 0 [place] Immature granulocytes (Bld) [#/Vol] 0.11 10*3/uL [place] Interpretation and review of laboratory results Abnormal [place] Lymphocytes (Bld) [#/Vol] 2.56 10*3/uL [place] Lymphocytes/100 WBC (Bld) 24 % 24 - 43 % [place] MCH (RBC) [Entitic mass] 29.3 pg 25.2 - 33.5 pg [place] MCHC (RBC) [Mass/Vol] 32.2 g/dL 28.4 - 34.8 g/dL [place] MCV (RBC) [Entitic vol] 90.8 fL 82.6 - 102.9 fL [place] Monocytes (Bld) [#/Vol] 0.78 10*3/uL [place] Monocytes/100 WBC (Bld) 7 % 3 - 12 % [place] Platelet mean volume (Bld) [Entitic vol] 10.6 fL 8.1 - 13.5 fL [place] Platelets (Bld) [#/Vol] NOT REPORTED [place] Platelets (Bld) [#/Vol] 241 10*3/uL [place] RBC (Bld) [#/Vol] 4.58 10*6/uL 3.95 - 5.1 1 m/uL [place] RBC morphology finding Nom (Bld) ANISOCYTOSIS PRESENT [place] Segmented neutrophils/100 WBC (Bld) 66 % High 36 - 65 % [place] Segs Absolute 7.00 [place] WBC (Bld) [#/Vol] 10.6 10*3/uL [place] WBC (Bld) [#/Vol] 0.0 10*3/uL 0.0 per 10 0 WBC [place] WBC Morphology NOT REPORTED [place] CBC with Diffon 10-15-2019 Abs. Basophil 0.06 k/uL Normal 0.00-0.20 [facility] Comment on above: Performed By: #### C DP, CP, LIP, TROPI, LIPRF, GLYHGB #### [facility] [address] [place], [place] [phone] Blueprint Cutter: Brandon Anaya MD Abs.Imm.Granulocyte 0.11 k/uL Normal 0.00-0.30 [facility] Comment on above: Performed By: #### C DP, CP, LIP, TROPI, LIPRF, GLYHGB #### [facility] [address] [place] [address] [employer]print Cutter: Brandon Anaya MD Abs.Neutrophil (Seg) 7.00 k/uL Normal 1.50-8.10 [facility] Comment on above: Performed By: #### C DP, CP, LIP, TROPI, LIPRF, GLYHGB #### [facility] [address] [place] [address] [employer] Cutter: Brandon Anaya MD Basophils/100 WBC (Bld) 1 % Normal 0-2 [facility] Comment on above: Performed By: #### C DP, CP, LIP, TROPI, LIPRF, GLYHGB #### [address] [address] [employer] Cutter: Brandon Anaya MD Eosinophils (Bld) [#/Vol] 0.13 10*3/uL Normal 0.00-0.44 [facility] Comment on above: Performed By: #### C DP, CP, LIP, TROPI, LIPRF, GLYHGB #### [place] [address] [employer] Cutter: Brandon Anaya MD Eosinophils/100 WBC (Bld) 1 % Normal 1-4 [facility] Comment on above: Performed By: #### C DP, CP, LIP, TROPI, LIPRF, GLYHGB #### [place] [address] [employer]print Cutter: Brandon Anaya MD Erythrocyte distribution width (RBC) [Ratio] 14.6 % High 11.8-14.4 [facility] Comment on above: Performed By: #### C DP, CP, LIP, TROPI, LIPRF, GLYHGB #### [facility] [address] [place] [address] [employer]print Cutter: Brandon Anaya MD Hematocrit (Bld) [Volume fraction] 41.6 % Normal 36.3-47.1 [facility] Comment on above: Performed By: #### C DP, CP, LIP, TROPI, LIPRF, GLYHGB #### [facility] [address] [place] [address] [employer] Cutter: Brandon Anaya MD Hemoglobin (Bld) [Mass/Vol] 13.4 g/dL Normal 11.9-15.1 [facility] Comment on above: Performed By: #### C DP, CP, LIP, TROPI, LIPRF, GLYHGB #### [address] [address] Blueprint Cutter: Brandon Anaya MD Immature granulocytes (Bld) [#/Vol] 1 % High 0 [facility] Comment on above: Performed By: #### C DP, CP, LIP, TROPI, LIPRF, GLYHGB #### [address] [address] Blueprint Cutter: Brandon Anaya MD Lymphocytes (Bld) [#/Vol] 2.56 10*3/uL Normal 1.10-3.70 [facility] Comment on above: Performed By: #### C DP, CP, LIP, TROPI, LIPRF, GLYHGB #### [address] [address] Blueprint Cutter: Brandon Anaya MD Lymphocytes/100 WBC (Bld) 24 % Normal 24-43 [facility] Comment on above: Performed By: #### C DP, CP, LIP, TROPI, LIPRF, GLYHGB #### [address] [address] Blueprint Cutter: Brandon Anaya MD MCH (RBC) [Entitic mass] 29.3 pg Normal 25.2-33.5 [facility] Comment on above: Performed By: #### C DP, CP, LIP, TROPI, LIPRF, GLYHGB #### [address] [address] Blueprint Cutter: Brandon Anaya MD MCHC (RBC) [Mass/Vol] 32.2 g/dL Normal 28.4-34.8 [facility] Comment on above: Performed By: #### C DP, CP, LIP, TROPI, LIPRF, GLYHGB #### [address] [address] Blueprint Cutter: Brandon Anaya MD MCV (RBC) [Entitic vol] 90.8 fL Normal 82.6-102.9 [facility] Comment on above: Performed By: #### C DP, CP, LIP, TROPI, LIPRF, GLYHGB #### [address] [address] Blueprint Cutter: Brandon Anaya MD Monocytes (Bld) [#/Vol] 0.78 10*3/uL Normal 0.10-1.20 [facility] Comment on above: Performed By: #### C DP, CP, LIP, TROPI, LIPRF, GLYHGB #### [place] [address] Blueprint Cutter: Brandon Anaya MD Monocytes/100 WBC (Bld) 7 % Normal 3-12 [facility] Comment on above: Performed By: #### C DP, CP, LIP, TROPI, LIPRF, GLYHGB #### [address] [address] Blueprint Cutter: Brandon Anaya MD Neutrophil (Seg) 66 % High 36-65 [facility] Comment on above: Performed By: #### C DP, CP, LIP, TROPI, LIPRF, GLYHGB #### [address] [address] Blueprint Cutter: Brandon Anaya MD NRBC Automated 0.0 per 100 WBC Normal 0.0 [facility] Comment on above: Performed By: #### C DP, CP, LIP, TROPI, LIPRF, GLYHGB #### [address] [address] Blueprint Cutter: Brandon Anaya MD Platelet mean volume (Bld) [Entitic vol] 10.6 fL Normal 8.1-13.5 [facility] Comment on above: Performed By: #### C DP, CP, LIP, TROPI, LIPRF, GLYHGB #### [address] [address] Blueprint Cutter: Brandon Anaya MD Platelets (Bld) [#/Vol] 241 10*3/uL Normal 138-453 [facility] Comment on above: Performed By: #### C DP, CP, LIP, TROPI, LIPRF, GLYHGB #### [address] [address] Blueprint Cutter: Brandon Anaya MD RBC (Bld) [#/Vol] 4.58 10*6/uL Normal 3.95-5.11 [facility] Comment on above: Performed By: #### C DP, CP, LIP, TROPI, LIPRF, GLYHGB #### [address] [address] Blueprint Cutter: Brandon Anaya MD RBC morphology finding Nom (Bld) ANISOCYTOSIS PRESENT Normal [facility] Comment on above: Performed By: #### C DP, CP, LIP, TROPI, LIPRF, GLYHGB #### [address] [address] Blueprint Cutter: Brandon Anaya MD WBC (Bld) [#/Vol] 10.6 10*3/uL Normal 3.5-11.3 [facility] Comment on above: Performed By: #### C DP, CP, LIP, TROPI, LIPRF, GLYHGB #### [address] [address] Blueprint Cutter: Brandon Anaya MD Auto Diff Performed NOT REPORTED Normal [facility] Comment on above: Performed By: #### C DP, CP, LIP, TROPI, LIPRF, GLYHGB #### [facility] [address] [place] [address] Blueprint Cutter: Brandon Anaya MD Platelets (Bld) [#/Vol] NOT REPORTED Normal [facility] Comment on above: Performed By: #### C DP, CP, LIP, TROPI, LIPRF, GLYHGB #### [facility] [address] [place] [address] Blueprint Cutter: Brandon Anaya MD WBC Morphology NOT REPORTED Normal [facility] Comment on above: Performed By: #### C DP, CP, LIP, TROPI, LIPRF, GLYHGB #### [facility] [address] [place] [address] Blueprint Cutter: Brandon Anaya MD MRI LUMBAR SPINE W [...] 2013; 10(10):789-794; J Vasc Surg. 2018; 67:2-77 [place] EXAMINATION: MRI OF THE LUMBAR SPINE [...] are intact. The neural foramina are intact. [facility]- [place], [place] Prieto, Mhpn Incoming Radiant Results From [employer] - 10/15/2019 11:11 PM EDT EXAMINATION: MRI [...] 2013; 10(10):789-794; J Vasc Surg. 2018; 67:2-77 [place] MYCOPLASMA PNEUMONIAE ANTIBO DY, IGMon 10-15-2019 Mycoplasma pneumo IgM 0.12 <0.91 [place], [place] Comment on above: Reference Range: <=0.90 Negative 0.91-1.09 Equivocal >=1.10 Positive Mycoplasma Ab, IgMon 020 Mycoplasma Ab, IgM 0.12 Normal <0.91 [facility] Comment on above: Result Comment: Reference Range: <=0.90 Negative 0.91-1.09 Equivocal >=1.10 Positive Performed By: #### C DP, CP, LIP, TROPI, LIPRF, GLYHGB #### [facility] [address] [place] [address] Blueprint Cutter: Brandon Anaya MD POC Glucose Fingerstickon Glucose [Mass/Vol] 100 mg/dL 65 - 105 mg/dL [place] Glucose [Mass/Vol] 99 mg/dL 65 - 105 mg/dL [place] Glucose [Mass/Vol] 91 mg/dL 65 - 105 mg/dL [place] Glucose [Mass/Vol] 95 mg/dL 65 - 105 mg/dL [place] RENINon 10-15-2019 Renin Activity 0.1 ng/mL/hr [place] Comment on above: (NOTE) INTERPRETIVE INFORMATION: Renin Activity Adult, Normal sodium diet: Supine ................. 0.2-1.6 ng/mL/hr Upright ................ 0.5-4.0 ng/mL/hr Children, Normal sodium diet, Supine: [place] (1-7 days) ..... 2.0-35.0 ng/mL/hr Cord blood [...] angiotensinogen is decreased. See Compliance Statement D: [email or web address] Performed By: [email or web address] [address] [place] [id number] Tube Sorter: Nik Rosas MD, MS Renin Comment NOT REPORTED [facility], [place] Renin Activityon 10-15-2019 Renin Activity 0.1 ng/mL/hr Normal [facility] Comment on above: Result Comment: (NOT E) [...] angiotensinogen is decreased. See Compliance Statement D: [email or web address] Performed By: [email or web address] [address] [place] [address] Tube Sorter: Nik Rosas MD, MS Performed By: #### C DP, CP, LIP, TROPI, LIPRF, GLYHGB #### [address] [place], [place] [phone] Blueprint Cutter: Brandon Anaya MD ALDOSTERONEon 10-14-2019 Aldosterone 5 ng/dL [place] Comment on above: (NOTE) INTERPRETIVE INFORMATION: [...] reference intervals for this test in the [facility] Test Directory (Spotlight.[email or web address]). Performed By: [email or web address] [address] [place] [address] Tube Sorter: Nik Rosas MD, MS Aldosterone Comment NOT REPORTED [facility] Aldosterone 5.0 ng/dL Normal [facility] Comment on above: Result Comment: (NOT [...] reference intervals for this test in the [facility] Test Directory (Spotlight.fm). Performed By: [email or web address] [address] [place] [address] Tube Sorter: Nik Rosas MD, MS Performed By: #### C DP, CP, LIP, TROPI, LIPRF, GLYHGB #### [place] [address] Blueprint Cutter: Brandon Anaya MD Basic Metab w/rfx MGon 10-13 (cont.) Normal [facility] Comment on above: Result Comment: Aver age GFR for 70 or more years old: 75 mL/min/1.73sq m Chronic Kidney Disease: <60 mL/min/1.73sq m Kidney failure: <15 mL/min/1.73sq m eGFR calculated using average adult body mass. Additional eGFR calculator available at: http://[email or web address].opendorse/multiple_crcl_2012.htm Performed By: #### C DP, CP, LIP, TROPI, LIPRF, GLYHGB #### [place] [id number] Blueprint Cutter: Brandon Anaya MD Anion gap [Moles/Vol] 13 mmol/L Normal 9-17 [facility] Comment on above: Performed By: #### C DP, CP, LIP, TROPI, LIPRF, GLYHGB #### [place] [id number] Blueprint Cutter: Brandon Anaya MD Calcium [Mass/Vol] 8.5 mg/dL Low 8.6-10.4 [facility] Comment on above: Performed By: #### C DP, CP, LIP, TROPI, LIPRF, GLYHGB #### [facility] [address] [place] [address] Blueprint Cutter: Brandon Anaya MD Chloride [Moles/Vol] 91 mmol/L Low 98-107 [facility] Comment on above: Performed By: #### C DP, CP, LIP, TROPI, LIPRF, GLYHGB #### [facility] [address] [place] [address] Blueprint Cutter: Brandon Anaya MD CO2 [Moles/Vol] 26 mmol/L Normal 20-31 [facility] Comment on above: Performed By: #### C DP, CP, LIP, TROPI, LIPRF, GLYHGB #### [address] [address] Blueprint Cutter: Brandon Anaya MD Creatinine [Mass/Vol] 0.48 mg/dL Low 0.50-0.90 [facility] Comment on above: Performed By: #### C DP, CP, LIP, TROPI, LIPRF, GLYHGB #### [address] [address] Blueprint Cutter: Brandon Anaya MD GFR, Amer >60 Normal >60 [facility] Comment on above: Performed By: #### C DP, CP, LIP, TROPI, LIPRF, GLYHGB #### [address] [address] Blueprint Cutter: Brandon Anaya MD GFR,non Amer >60 Normal >60 [facility] Comment on above: Performed By: #### C DP, CP, LIP, TROPI, LIPRF, GLYHGB #### [facility] [address] [place] [address] Blueprint Cutter: Brandon Anaya MD Glucose [Mass/Vol] 104 mg/dL High 70-99 [facility] Comment on above: Performed By: #### C DP, CP, LIP, TROPI, LIPRF, GLYHGB #### [facility] [address] [place] [address] Blueprint Cutter: Brandon Anaya MD Potassium [Moles/Vol] 3.7 mmol/L Normal 3.7-5.3 [facility] Comment on above: Performed By: #### C DP, CP, LIP, TROPI, LIPRF, GLYHGB #### [address] [address] Blueprint Cutter: Brandon Anaya MD Sodium [Moles/Vol] 130 mmol/L Low 135-144 [facility] Comment on above: Performed By: #### C DP, CP, LIP, TROPI, LIPRF, GLYHGB #### [address] [address] Blueprint Cutter: Brandon Anaya MD Urea nitrogen [Mass/Vol] 19 mg/dL Normal 8-23 [facility] Comment on above: Performed By: #### C DP, CP, LIP, TROPI, LIPRF, GLYHGB #### [address] [address] Blueprint Cutter: Brandon Anaya MD BUN/CRE Ratio NOT REPORTED Normal - [facility] Comment on above: Performed By: #### C DP, CP, LIP, TROPI, LIPRF, GLYHGB #### [facility] [address] [place] [address] Blueprint Cutter: Brandon Anaya MD Staging: NOT REPORTED Normal [facility] Comment on above: Performed By: #### C DP, CP, LIP, TROPI, LIPRF, GLYHGB #### [facility] [address] [place] [address] Blueprint Cutter: Brandon Anaya MD Basic Metabolic Panel w/ Ref kervin to MGon 10-14-2019 Anion gap [Moles/Vol] 13 mmol/L 9 - 17 mmol/L [place] Bun/Cre Ratio NOT REPORTED [place] Calcium [Mass/Vol] 8.5 mg/dL Low 8.6 - 10. 4 mg/dL [place] Chloride [Moles/Vol] 91 mmol/L Low 98 - 10 7 mmol/L [place] CO2 [Moles/Vol] 26 mmol/L 20 - 31 mmol/L [place] Creatinine [Mass/Vol] 0.48 mg/dL Low 0.5 - 0.9 mg/dL [place] GFR >60 >60 mL/min [place] GFR Non- >60 >60 mL/min [place] GFR/1.73 sq M predicted among non-blacks MDRD (S/P/Bld) [Vol rate/Area] [place] Comment on above: Average GFR for 70 o r more years old: 75 mL/min/1.73sq m Chronic Kidney Disease: <60 mL/min/1.73sq m Kidney failure: <15 mL/min/1.73sq m eGFR calculated using average adult body mass. Additional eGFR calculator available at: http://www.Consano/multiple_crcl_2012.htm GFR/1.73 sq M predicted among non-blacks MDRD (S/P/Bld) [Vol rate/Area] NOT REPORTED [place] Glucose [Mass/Vol] 104 mg/dL High 70 - 99 mg/dL [place] Interpretation and review of laboratory results Abnormal [place] Potassium [Moles/Vol] 3.7 mmol/L 3.7 - 5.3 mmol/L [place] Sodium [Moles/Vol] 130 mmol/L Low 135 - 144 mmol/L [place] Urea nitrogen [Mass/Vol] 19 mg/dL 8 - 23 mg/dL [place] CBC auto differentialon 09-25 Atypical Lymphocytes 3 % [place] Atypical Lymphocytes Absolute 0.30 k/uL [place] Basophils (Bld) [#/Vol] 0.00 10*3/uL [place] Basophils/100 WBC (Bld) 0 % 0 - 2 % [place] Differential Type NOT REPORTED [place] Eosinophils (Bld) [#/Vol] 0.10 10*3/uL [place] Eosinophils/100 WBC (Bld) 1 % 1 - 4 % [place] Erythrocyte distribution width (RBC) [Ratio] 14.7 % High 11.8 - 14.4 % [place] Hematocrit (Bld) [Volume fraction] 39.5 % 36.3 - 47.1 % [place] Hemoglobin (Bld) [Mass/Vol] 12.9 g/dL 11.9 - 15.1 g/dL [place] Immature granulocytes (Bld) [#/Vol] 0.10 10*3/uL [place] Immature granulocytes (Bld) [#/Vol] 1 % High 0 [place] Interpretation and review of laboratory results Abnormal [place] Lymphocytes (Bld) [#/Vol] 2.80 10*3/uL [place] Lymphocytes/100 WBC (Bld) 28 % 24 - 44 % [place] MCH (RBC) [Entitic mass] 29.5 pg 25.2 - 33.5 pg [place] MCHC (RBC) [Mass/Vol] 32.7 g/dL 28.4 - 34.8 g/dL [place] MCV (RBC) [Entitic vol] 90.2 fL 82.6 - 102.9 fL [place] Monocytes (Bld) [#/Vol] 0.50 10*3/uL [place] Monocytes/100 WBC (Bld) 5 % 1 - 7 % [place] Morphology Alfredo (Bld) [Interp] ANISOCYTOSIS PRESENT [place] Platelet mean volume (Bld) [Entitic vol] 10.1 fL 8.1 - 13.5 fL [place] Platelets (Bld) [#/Vol] 190 10*3/uL [place] Platelets (Bld) [#/Vol] NOT REPORTED [place] RBC (Bld) [#/Vol] 4.38 10*6/uL 3.95 - 5.1 1 m/uL [place] RBC morphology finding Nom (Bld) NOT REPORTED [place] Segmented neutrophils/100 WBC (Bld) 62 % 36 - 66 % [place] Segs Absolute 6.20 [place] WBC (Bld) [#/Vol] 10.0 10*3/uL [place] WBC (Bld) [#/Vol] 0.0 10*3/uL 0.0 per 10 0 WBC [place] WBC Morphology NOT REPORTED [place] CBC with Diffon 10-14-2019 Abs. Atypical Lymphs 0.30 k/uL Normal [facility] Comment on above: Performed By: #### C DP, CP, LIP, TROPI, LIPRF, GLYHGB #### [facility] [address] [place], [place] [phone] Blueprint Cutter: Brandon Anaya MD Abs. Basophil 0.00 k/uL Normal 0.0-0.2 [facility] Comment on above: Performed By: #### C DP, CP, LIP, TROPI, LIPRF, GLYHGB #### [facility] [address] [place] [phone] Blueprint Cutter: Brandon Anaya MD Abs.Imm.Granulocyte 0.10 k/uL Normal 0.00-0.30 [facility] Comment on above: Performed By: #### C DP, CP, LIP, TROPI, LIPRF, GLYHGB #### [facility] [address] [place] [phone] Blueprint Cutter: Brandon Anaya MD Abs.Neutrophil (Seg) 6.20 k/uL Normal 1.8-7.7 [facility] Comment on above: Performed By: #### C DP, CP, LIP, TROPI, LIPRF, GLYHGB #### [address] [address] Blueprint Cutter: Brandon Anaya MD Atypical Lymphs 3 % Normal [facility] Comment on above: Performed By: #### C DP, CP, LIP, TROPI, LIPRF, GLYHGB #### [place] [address] Blueprint Cutter: Brandon Anaya MD Basophils/100 WBC (Bld) 0 % Normal 0-2 [facility] Comment on above: Performed By: #### C DP, CP, LIP, TROPI, LIPRF, GLYHGB #### [place] [address] Blueprint Cutter: Brandon Anaya MD Eosinophils (Bld) [#/Vol] 0.10 10*3/uL Normal 0.0-0.4 [facility] Comment on above: Performed By: #### C DP, CP, LIP, TROPI, LIPRF, GLYHGB #### [place] [address] Blueprint Cutter: Brandon Anaya MD Eosinophils/100 WBC (Bld) 1 % Normal 1-4 [facility] Comment on above: Performed By: #### C DP, CP, LIP, TROPI, LIPRF, GLYHGB #### [place] [address] Blueprint Cutter: Brandon Anaya MD Immature granulocytes (Bld) [#/Vol] 1 % High 0 [facility] Comment on above: Performed By: #### C DP, CP, LIP, TROPI, LIPRF, GLYHGB #### [address] [address] Blueprint Cutter: Brandon Anaya MD Lymphocytes (Bld) [#/Vol] 2.80 10*3/uL Normal 1.0-4.8 [facility] Comment on above: Performed By: #### C DP, CP, LIP, TROPI, LIPRF, GLYHGB #### [address] [address] Blueprint Cutter: Brandon Anaya MD Lymphocytes/100 WBC (Bld) 28 % Normal 24-44 [facility] Comment on above: Performed By: #### C DP, CP, LIP, TROPI, LIPRF, GLYHGB #### [facility] [address] [place] [address] Blueprint Cutter: Brandon Anaya MD Monocytes (Bld) [#/Vol] 0.50 10*3/uL Normal 0.1-0.8 [facility] Comment on above: Performed By: #### C DP, CP, LIP, TROPI, LIPRF, GLYHGB #### [address] [address] Blueprint Cutter: Brandon Anaya MD Monocytes/100 WBC (Bld) 5 % Normal 1-7 [facility] Comment on above: Performed By: #### C DP, CP, LIP, TROPI, LIPRF, GLYHGB #### [address] [address] Blueprint Cutter: Brandon Anaya MD Morphology Alfredo (Bld) [Interp] ANISOCYTOSIS PRESENT Normal [facility] Comment on above: Performed By: #### C DP, CP, LIP, TROPI, LIPRF, GLYHGB #### [address] [address] Blueprint Cutter: Brandon Anaya MD Neutrophil (Seg) 62 % Normal 36-66 [facility] Comment on above: Performed By: #### C DP, CP, LIP, TROPI, LIPRF, GLYHGB #### [address] [address] Blueprint Cutter: Brandon Anaya MD Erythrocyte distribution width (RBC) [Ratio] 14.7 % High 11.8-14.4 [facility] Comment on above: Performed By: #### C DP, CP, LIP, TROPI, LIPRF, GLYHGB #### [address] [address] Blueprint Cutter: Brandon Anaya MD Hematocrit (Bld) [Volume fraction] 39.5 % Normal 36.3-47.1 [facility] Comment on above: Performed By: #### C DP, CP, LIP, TROPI, LIPRF, GLYHGB #### [place] [address] Blueprint Cutter: Brandon Anaya MD Hemoglobin (Bld) [Mass/Vol] 12.9 g/dL Normal 11.9-15.1 [facility] Comment on above: Performed By: #### C DP, CP, LIP, TROPI, LIPRF, GLYHGB #### [address] [address] Blueprint Cutter: Brandon Anaya MD MCH (RBC) [Entitic mass] 29.5 pg Normal 25.2-33.5 [facility] Comment on above: Performed By: #### C DP, CP, LIP, TROPI, LIPRF, GLYHGB #### [address] [address] Blueprint Cutter: Brandon Anaya MD MCHC (RBC) [Mass/Vol] 32.7 g/dL Normal 28.4-34.8 [facility] Comment on above: Performed By: #### C DP, CP, LIP, TROPI, LIPRF, GLYHGB #### [address] [address] Blueprint Cutter: Brandon Anaya MD MCV (RBC) [Entitic vol] 90.2 fL Normal 82.6-102.9 [facility] Comment on above: Performed By: #### C DP, CP, LIP, TROPI, LIPRF, GLYHGB #### [address] [address] Blueprint Cutter: Brandon Anaya MD NRBC Automated 0.0 per 100 WBC Normal 0.0 [facility] Comment on above: Performed By: #### C DP, CP, LIP, TROPI, LIPRF, GLYHGB #### [address] [address] Blueprint Cutter: Brandon Anaya MD Platelet mean volume (Bld) [Entitic vol] 10.1 fL Normal 8.1-13.5 [facility] Comment on above: Performed By: #### C DP, CP, LIP, TROPI, LIPRF, GLYHGB #### [place] [address] Blueprint Cutter: Brandon Anaya MD Platelets (Bld) [#/Vol] 190 10*3/uL Normal 138-453 [facility] Comment on above: Performed By: #### C DP, CP, LIP, TROPI, LIPRF, GLYHGB #### [address] [address] Blueprint Cutter: Brandon Anaya MD RBC (Bld) [#/Vol] 4.38 10*6/uL Normal 3.95-5.11 [facility] Comment on above: Performed By: #### C DP, CP, LIP, TROPI, LIPRF, GLYHGB #### [address] [address] Blueprint Cutter: Brandon Anaya MD WBC (Bld) [#/Vol] 10.0 10*3/uL Normal 3.5-11.3 [facility] Comment on above: Performed By: #### C DP, CP, LIP, TROPI, LIPRF, GLYHGB #### [address] [place] [address] Blueprint Cutter: Brandon Anaya MD Auto Diff Performed NOT REPORTED Normal [facility] Comment on above: Performed By: #### C DP, CP, LIP, TROPI, LIPRF, GLYHGB #### [facility] [address] [place] [address] Blueprint Cutter: Brandon Anaya MD Platelets (Bld) [#/Vol] NOT REPORTED Normal [facility] Comment on above: Performed By: #### C DP, CP, LIP, TROPI, LIPRF, GLYHGB #### [facility] [address] [place] [address] Blueprint Cutter: Brandon Anaya MD RBC morphology finding Nom (Bld) NOT REPORTED Normal [facility] Comment on above: Performed By: #### C DP, CP, LIP, TROPI, LIPRF, GLYHGB #### [facility] [address] [place] [address] Blueprint Cutter: Brandon Anaya MD WBC Morphology NOT REPORTED Normal [facility] Comment on above: Performed By: #### C DP, CP, LIP, TROPI, LIPRF, GLYHGB #### [facility] [address] [place] [address] Blueprint Cutter: Brandon Anaya MD METANEPHRINES PLASMA FREEon 10-14-2019 Metaneph/Plasma Interp See Note [facility], [place] Comment on above: (NOTE) INTERPRETIVE [...] should be considered. See Compliance Statement B: [email or web address]/PureWRX Performed By: [email or web address] [address] [place] [id number] Tube Sorter: Nik Rosas MD, [place] Metanephrine 0.14 nmol/L 0 - 0.49 nmol/L [place] Normetanephrine 0.73 nmol/L 0 - 0.89 nmol/L [facility], [place] Metanephrine, Plasmaon 10-13 Metaneph Interp See Note Normal [facility] Comment on above: Result Comment: (NOT [...] should be considered. See Compliance Statement B: Spotlight.fm/PureWRX Performed By: [email or web address] [address] [place] [address] Tube Sorter: Nik Rosas MD, MS Performed By: #### C DP, CP, LIP, TROPI, LIPRF, GLYHGB #### [facility] [place], [place] [phone] Blueprint Cutter: Brandon Anaya MD Metanephrine 0.14 nmol/L Normal 0.00-0.49 [facility] Comment on above: Performed By: #### C DP, CP, LIP, TROPI, LIPRF, GLYHGB #### [facility] [place] [address] Blueprint Cutter: Brandon Anaya MD Normetanephrine 0.73 nmol/L Normal 0.00-0.89 [facility] Comment on above: Performed By: #### C JUAN GARZA, LIP, TROPI, LIPRF, GLYHGB #### [facility] [address] [place], [place] [phone] Blueprint Cutter: Brandon Anaya MD POC Glucose Fingerstickon Glucose [Mass/Vol] 86 mg/dL 65 - 105 mg/dL [place] Glucose [Mass/Vol] 105 mg/dL 65 - 105 mg/dL [place] Glucose [Mass/Vol] 159 mg/dL High 65 - 105 mg/dL [place] Interpretation and review of laboratory results Abnormal [place] Glucose [Mass/Vol] 113 mg/dL High 65 - 105 mg/dL [place] Interpretation and review of laboratory results Abnormal [place] T. pallidum Abon 10-14-2019 T. pallidum, IgG NONREACTIVE NONREACTIVE [place] Comment on above: T. pallidum antibodies are not detected. There is no serological evidence of infection with T. pallidum (early primary syphilis cannot be excluded). Retest in 2-4 weeks if syphilis is clinically suspect. T.pallidum Ab Screenon 10-13 T.pallidum Ab Screen NONREACTIVE Normal NR [facility] Comment on above: Result Comment: T. pallidum antibodies are not detected. There is no serological evidence of infection with T. pallidum (early primary syphilis cannot be excluded). Retest in 2-4 weeks if syphilis is clinically suspect. Performed By: #### C DP, CP, LIP, TROPI, LIPRF, GLYHGB #### [facility] [address] [place], [place] [phone] Blueprint Cutter: Brandon Anaya MD AMMONIAon 10-13-2019 Ammonia (P) [Mass/Vol] 28 umol/L 11 - 51 umol/L [place] Ammoniaon 10-13-2019 Ammonia (P) [Mass/Vol] 28 umol/L Normal 11-51 [facility] Comment on above: Performed By: #### C DP, CP, LIP, TROPI, LIPRF, GLYHGB #### [facility] [address] [place] [address] Blueprint Cutter: Brandon Anaya MD BLOOD GAS, VENOUSon 10-13-19 20 Andrés Test NOT REPORTED [facility] [employer] [place], [place] aPTT Coag (Bld) [Time] 37.0 s [facility] [employer] [place], [place] Carboxyhemoglobin 1.3 % 0 - 5 % [facility] [employer] [place], [place] Comment on above: Reference Range: Non-Smokers 0-2% Average Smoker 2-4% Heavy Smoker <10% FIO2 ROOM AIR [facility] [place] HCO3, Venous 28.4 mmol/L 24 - 30 mmol/L [facility] [employer] [place] Interpretation and review of laboratory results Abnormal [facility] [employer] [place] Methemoglobin NOT REPORTED 0 - 1.5 % [facility] [employer] [place] Mode NOT REPORTED [facility] [employer] [place] Negative Base Excess, Noah NOT REPORTED 0 - 2 mmol/L [facility] [employer] [place] NOTIFICATION NOT REPORTED [facility] [employer] [place] NOTIFICATION TIME NOT REPORTED [facility] [employer] [place] O2 Device/Flow/% NOT REPORTED [facility] [employer] [place] Oxygen saturation in Blood 78.1 % 60 - 85 % [facility] [employer] [place] Oxyhemoglobin NOT REPORTED 95 - 98 % [facility] [place] pCO2, Noah 42.6 [facility] [place] pCO2, Noah, Temp Adj NOT REPORTED [facility] [employer], [place] Peep/Cpap NOT REPORTED [facility] [place] pH, Noah 7.439 High [facility] [place] pH, Noah, Temp Adj NOT REPORTED [facility] [place] pO2, Noah 41.1 [facility] [employer] pO2, Noah, Temp Adj NOT REPORTED [facility] [employer] Positive Base Excess, Noah 4.2 mmol/L High 0 - 2 mmol/L [facility] [place] PSV NOT REPORTED [facility] [employer] [place] Pt. Position NOT REPORTED [facility] [employer] Sample Site NOT REPORTED [facility] [place] Set Rate NOT REPORTED [place], [place] Text for Respiratory NOT REPORTED [facility], [place] Total Hb NOT REPORTED 12 - 16 g/dl [place] Total Rate NOT REPORTED [place] NOT REPORTED [place] Basic Metab w/rfx MGon 10-12 Potassium [Moles/Vol] 3.4 mmol/L Low 3.7-5.[address] [facility] [place] Comment on above: Performed By: #### C DP, CP, LIP, TROPI, LIPRF, GLYHGB #### [employer] [address] [place] [address] [phone] Blueprint Cutter: Brandon Anaya MD (cont.) [facility] Comment on above: Result Comment: Aver age GFR for 70 or more years old: 75 mL/min/1.73sq m Chronic Kidney Disease: <60 mL/min/1.73sq m Kidney failure: <15 mL/min/1.73sq m eGFR calculated using average adult body mass. Additional eGFR calculator available at: http://www.Consano/multiple_crcl_2012.htm Performed By: #### C DP, CP, LIP, TROPI, LIPRF, GLYHGB #### [employer] [address] [place] [address] [phone] [employer]print Cutter: Brandon Anaya MD Anion gap [Moles/Vol] 16 mmol/L Normal 9-17 [facility] Comment on above: Performed By: #### C DP, CP, LIP, TROPI, LIPRF, GLYHGB #### [employer] [address] [place] [address] [phone] [employer] Cutter: Brandon Anaya MD Calcium [Mass/Vol] 9.0 mg/dL Normal 8.6-10.4 [facility] Comment on above: Performed By: #### C DP, CP, LIP, TROPI, LIPRF, GLYHGB #### [facility] [employer] [address] [place] [address] [phone] [employer] Cutter: Brandon Anaya MD Chloride [Moles/Vol] 90 mmol/L Low 98-107 [facility] Comment on above: Performed By: #### C DP, CP, LIP, TROPI, LIPRF, GLYHGB #### [facility] [address] [place] [phone] [employer] Cutter: Brandon Anaya MD CO2 [Moles/Vol] 25 mmol/L Normal 20-31 [facility] Comment on above: Performed By: #### C DP, CP, LIP, TROPI, LIPRF, GLYHGB #### [facility] [address] [place] [phone] [employer] Cutter: Brandon Anaya MD Creatinine [Mass/Vol] 0.47 mg/dL Low 0.50-0.90 [facility] Comment on above: Performed By: #### C DP, CP, LIP, TROPI, LIPRF, GLYHGB #### [facility] [employer] [address] [place] [phone] [employer] Cutter: Brandon Anaya MD GFR, Amer >60 Normal >60 [facility] Comment on above: Performed By: #### C DP, CP, LIP, TROPI, LIPRF, GLYHGB #### [facility] [employer] [address] [place] [phone] [employer] Cutter: Brandon Anaya MD GFR,non Amer >60 Normal >60 [facility] Comment on above: Performed By: #### C DP, CP, LIP, TROPI, LIPRF, GLYHGB #### [facility] [employer] [address] [place] [phone] [employer] Cutter: Brandon Anaya MD Glucose [Mass/Vol] 113 mg/dL High 70-99 [facility] Comment on above: Performed By: #### C DP, CP, LIP, TROPI, LIPRF, GLYHGB #### [facility] [employer] [address] [place] [address] [phone] [employer] Cutter: Brandon Anaya MD Sodium [Moles/Vol] 131 mmol/L Low 135-144 [facility] Comment on above: Performed By: #### C DP, CP, LIP, TROPI, LIPRF, GLYHGB #### [facility] [address] [place], [place] [phone] Blueprint Cutter: Brandon Anaya MD Urea nitrogen [Mass/Vol] 16 mg/dL Normal 8- [facility] Comment on above: Performed By: #### C DP, CP, LIP, TROPI, LIPRF, GLYHGB #### [facility] [address] [place] [address] [employer]print Cutter: Brandon Anaya MD BUN/CRE Ratio NOT REPORTED Normal - [facility] Comment on above: Performed By: #### C DP, CP, LIP, TROPI, LIPRF, GLYHGB #### [facility] [address] [place], [place] [phone] [employer] Cutter: Brandon Anaya MD Staging: NOT REPORTED Normal [facility] Comment on above: Performed By: #### C DP, CP, LIP, TROPI, LIPRF, GLYHGB #### [facility] [address] [place], [place] [phone] [employer] Cutter: Brandon Anaya MD Basic Metabolic Panel w/ Ref kervin to MGon 10-13-2019 Anion gap [Moles/Vol] 16 mmol/L 9 - 17 mmol/L [place] Bun/Cre Ratio NOT REPORTED [place] Calcium [Mass/Vol] 9.0 mg/dL 8.6 - 10. 4 mg/dL [place] Chloride [Moles/Vol] 90 mmol/L Low 98 - 10 7 mmol/L [place] CO2 [Moles/Vol] 25 mmol/L 20 - 31 mmol/L [place] Creatinine [Mass/Vol] 0.47 mg/dL Low 0.5 - 0.9 mg/dL [place] GFR >60 >60 mL/min [place] GFR Non- >60 >60 mL/min [place] GFR/1.73 sq M predicted among non-blacks MDRD (S/P/Bld) [Vol rate/Area] NOT REPORTED [place] GFR/1.73 sq M predicted among non-blacks MDRD (S/P/Bld) [Vol rate/Area] [place] Comment on above: Average GFR for 70 o r more years old: 75 mL/min/1.73sq m Chronic Kidney Disease: <60 mL/min/1.73sq m Kidney failure: <15 mL/min/1.73sq m eGFR calculated using average adult body mass. Additional eGFR calculator available at: http://www.Consano/multiple_crcl_2012.htm Glucose [Mass/Vol] 113 mg/dL High 70 - 99 mg/dL [place], [place] Interpretation and review of laboratory results Abnormal [place] Potassium [Moles/Vol] 3.4 mmol/L Low 3.7 - 5.3 mmol/L [place] Sodium [Moles/Vol] 131 mmol/L Low 135 - 144 mmol/L [place] Urea nitrogen [Mass/Vol] 16 mg/dL 8 - 23 mg/dL [place] CBC auto differentialon 09-24 Basophils (Bld) [#/Vol] 0.07 10*3/uL [place] Basophils/100 WBC (Bld) 1 % 0 - 2 % [place] Differential Type NOT REPORTED [place] Eosinophils (Bld) [#/Vol] 10*3/uL [place] Eosinophils/100 WBC (Bld) 0 % Low 1 - 4 % [place] Erythrocyte distribution width (RBC) [Ratio] 15.0 % High 11.8 - 14.4 % [place] Hematocrit (Bld) [Volume fraction] 45.5 % 36.3 - 47.1 % [place] Hemoglobin (Bld) [Mass/Vol] 14.5 g/dL 11.9 - 15.1 g/dL [place] Immature granulocytes (Bld) [#/Vol] 0.14 10*3/uL [place] Immature granulocytes (Bld) [#/Vol] 1 % High 0 [place] Interpretation and review of laboratory results Abnormal [place] Lymphocytes (Bld) [#/Vol] 2.84 10*3/uL [place] Lymphocytes/100 WBC (Bld) 23 % Low 24 - 43 % [place] MCH (RBC) [Entitic mass] 29.8 pg 25.2 - 33.5 pg [place] MCHC (RBC) [Mass/Vol] 31.9 g/dL 28.4 - 34.8 g/dL [place] MCV (RBC) [Entitic vol] 93.4 fL 82.6 - 102.9 fL [place] Monocytes (Bld) [#/Vol] 1.22 10*3/uL High [place] Monocytes/100 WBC (Bld) 10 % 3 - 12 % [place] Platelet mean volume (Bld) [Entitic vol] 10.5 fL 8.1 - 13.5 fL [place] Platelets (Bld) [#/Vol] NOT REPORTED [place] Platelets (Bld) [#/Vol] 210 10*3/uL [place] RBC (Bld) [#/Vol] 4.87 10*6/uL 3.95 - 5.1 1 m/uL [place] RBC morphology finding Nom (Bld) ANISOCYTOSIS PRESENT [place] Segmented neutrophils/100 WBC (Bld) 65 % 36 - 65 % [place] Segs Absolute 8.01 [place] WBC (Bld) [#/Vol] 12.3 10*3/uL High [place] WBC (Bld) [#/Vol] 0.0 10*3/uL 0.0 per 10 0 WBC [place] WBC Morphology NOT REPORTED [place] CBC with Diffon 08-19-2020 Abs. Basophil 0.07 k/uL Normal 0.00-0.20 [facility] Comment on above: Performed By: #### C DP, CP, LIP, TROPI, LIPRF, GLYHGB #### [address] [address] [employer] C[employer]: Brandon Anaya MD Abs.Imm.Granulocyte 0.14 k/uL Normal 0.00-0.30 [facility] Comment on above: Performed By: #### C DP, CP, LIP, TROPI, LIPRF, GLYHGB #### [address] [address] [employer] Cutter: Brandon Anaya MD Abs.Neutrophil (Seg) 8.01 k/uL Normal 1.50-8.10 [facility] Comment on above: Performed By: #### C DP, CP, LIP, TROPI, LIPRF, GLYHGB #### [address] [address] [employer] C[employer]: Brandon Anaya MD Basophils/100 WBC (Bld) 1 % Normal 0-2 [facility] Comment on above: Performed By: #### C DP, CP, LIP, TROPI, LIPRF, GLYHGB #### [address] [address] [employer] Cutter: Brandon Anaya MD Eosinophils (Bld) [#/Vol] 10*3/uL Normal 0.00-0.44 [facility] Comment on above: Performed By: #### C DP, CP, LIP, TROPI, LIPRF, GLYHGB #### [address] [address] [employer] Cutter: Brandon Anaya MD Eosinophils/100 WBC (Bld) 0 % Low 1-4 [facility] Comment on above: Performed By: #### C DP, CP, LIP, TROPI, LIPRF, GLYHGB #### [facility] [employer] [address] [place] [phone] [employer]print Cutter: Brandon Anaya MD Erythrocyte distribution width (RBC) [Ratio] 15.0 % High 11.8-14.4 [facility] Comment on above: Performed By: #### C DP, CP, LIP, TROPI, LIPRF, GLYHGB #### [address] [address] [employer] Cutter: Brandon Anaya MD Hematocrit (Bld) [Volume fraction] 45.5 % Normal 36.3-47.1 [facility] Comment on above: Performed By: #### C DP, CP, LIP, TROPI, LIPRF, GLYHGB #### [address] [address] [employer] Cutter: Brandon Anaya MD Hemoglobin (Bld) [Mass/Vol] 14.5 g/dL Normal 11.9-15.1 [facility] Comment on above: Performed By: #### C DP, CP, LIP, TROPI, LIPRF, GLYHGB #### [address] [address] [employer] C[employer]: Brandon Anaya MD Immature granulocytes (Bld) [#/Vol] 1 % High 0 [facility] Comment on above: Performed By: #### C DP, CP, LIP, TROPI, LIPRF, GLYHGB #### [address] [address] [employer] Cutter: Brandon Anaya MD Lymphocytes (Bld) [#/Vol] 2.84 10*3/uL Normal 1.10-3.70 [facility] Comment on above: Performed By: #### C DP, CP, LIP, TROPI, LIPRF, GLYHGB #### [address] [address] [employer] Cutter: Brandon Anaya MD Lymphocytes/100 WBC (Bld) 23 % Low 24-43 [facility] Comment on above: Performed By: #### C DP, CP, LIP, TROPI, LIPRF, GLYHGB #### [facility] [address] [place] [address] [employer]print Cutter: Brandon Anaya MD MCH (RBC) [Entitic mass] 29.8 pg Normal 25.2-33.5 [facility] Comment on above: Performed By: #### C DP, CP, LIP, TROPI, LIPRF, GLYHGB #### [address] [address] [employer] Cutter: Brandon Anaya MD MCHC (RBC) [Mass/Vol] 31.9 g/dL Normal 28.4-34.8 [facility] Comment on above: Performed By: #### C DP, CP, LIP, TROPI, LIPRF, GLYHGB #### [place] [address] [employer] Cutter: Brandon Anaya MD MCV (RBC) [Entitic vol] 93.4 fL Normal 82.6-102.9 [facility] Comment on above: Performed By: #### C DP, CP, LIP, TROPI, LIPRF, GLYHGB #### [place] [address] [employer] Cutter: Brandon Anaya MD Monocytes (Bld) [#/Vol] 1.22 10*3/uL High 0.10-1.20 [facility] Comment on above: Performed By: #### C DP, CP, LIP, TROPI, LIPRF, GLYHGB #### [address] [address] [employer] Cutter: Brandon Anaya MD Monocytes/100 WBC (Bld) 10 % Normal 3-12 [facility] Comment on above: Performed By: #### C DP, CP, LIP, TROPI, LIPRF, GLYHGB #### [address] [address] [employer] Cutter: Brandon Anaya MD Neutrophil (Seg) 65 % Normal 36-65 [facility] Comment on above: Performed By: #### C DP, CP, LIP, TROPI, LIPRF, GLYHGB #### [address] [address] [employer]print Cutter: Brandon Anaya MD NRBC Automated 0.0 per 100 WBC Normal 0.0 [facility] Comment on above: Performed By: #### C DP, CP, LIP, TROPI, LIPRF, GLYHGB #### [address] [address] [employer] C[employer]: Brandon Anaya MD Platelet mean volume (Bld) [Entitic vol] 10.5 fL Normal 8.1-13.5 [facility] Comment on above: Performed By: #### C DP, CP, LIP, TROPI, LIPRF, GLYHGB #### [address] [address] [employer] Cutter: Brandon Anaya MD Platelets (Bld) [#/Vol] 210 10*3/uL Normal 138-453 [facility] Comment on above: Performed By: #### C DP, CP, LIP, TROPI, LIPRF, GLYHGB #### [address] [address] [employer]print Cutter: Brandon Anaya MD RBC (Bld) [#/Vol] 4.87 10*6/uL Normal 3.95-5.11 [facility] Comment on above: Performed By: #### C DP, CP, LIP, TROPI, LIPRF, GLYHGB #### [address] [address] [employer]print Cutter: Brandon Anaya MD RBC morphology finding Nom (Bld) ANISOCYTOSIS PRESENT Normal [facility] Comment on above: Performed By: #### C DP, CP, LIP, TROPI, LIPRF, GLYHGB #### [address] [address] [employer] Cutter: Brandon Anyaa MD WBC (Bld) [#/Vol] 12.3 10*3/uL High 3.5-11.3 [facility] Comment on above: Performed By: #### C DP, CP, LIP, TROPI, LIPRF, GLYHGB #### [address] [address] [employer]print Cutter: Brandon Anaya MD Auto Diff Performed NOT REPORTED Normal [facility] Comment on above: Performed By: #### C DP, CP, LIP, TROPI, LIPRF, GLYHGB #### [address] [address] [employer]print Cutter: Brandon Anaya MD Platelets (Bld) [#/Vol] NOT REPORTED Normal [facility] Comment on above: Performed By: #### C DP, CP, LIP, TROPI, LIPRF, GLYHGB #### [address] [address] [employer]print Cutter: Brandon Anaya MD WBC Morphology NOT REPORTED Normal [facility] Comment on above: Performed By: #### C DP, CP, LIP, TROPI, LIPRF, GLYHGB #### [address] [address] [employer]print Cutter: Brandon Anaya MD Magnesiumon 10-13-2019 Magnesium [Mass/Vol] 2.2 mg/dL Normal 1.6-2.6 [facility] Comment on above: Performed By: #### C DP, CP, LIP, TROPI, LIPRF, GLYHGB #### [address] [address] Blueprint Cutter: Brandon Anaya MD Magnesium [Mass/Vol] 2.2 mg/dL 1.6 - 2 .6 mg/dL [place] POC Glucose Fingerstickon Glucose [Mass/Vol] 121 mg/dL High 65 - 105 mg/dL [place] Interpretation and review of laboratory results Abnormal [place] Glucose [Mass/Vol] 100 mg/dL 65 - 105 mg/dL [place] Glucose [Mass/Vol] 104 mg/dL 65 - 105 mg/dL [place] Glucose [Mass/Vol] 123 mg/dL High 65 - 105 mg/dL [place] Interpretation and review of laboratory results Abnormal [place] Venous Blood Gaseson 020 Body Temp. 37.0 Normal [facility] Comment on above: Performed By: #### C DP, CP, LIP, TROPI, LIPRF, GLYHGB #### [address] [phone] [employer] Cutter: Brandon Anaya MD Carboxy Hgb 1.3 % Normal 0-5 [facility] Comment on above: Result Comment: Reference Range: Non-Smokers 0-2% Average Smoker 2-4% Heavy Smoker <10% Performed By: #### C DP, CP, LIP, TROPI, LIPRF, GLYHGB #### [address] [phone] [employer] Cutter: Brandon Anaya MD FIO2 ROOM AIR Normal [facility] Comment on above: Performed By: #### C DP, CP, LIP, TROPI, LIPRF, GLYHGB #### [address] [phone] [employer]: Brandon Anaya MD HCO3 (Bld) [Moles/Vol] 28.4 mmol/L Normal 24-30 [facility] Comment on above: Performed By: #### C DP, CP, LIP, TROPI, LIPRF, GLYHGB #### [address] [address] [employer] Cutter: Brandon Anaya MD Oxygen (Bld) [Partial pressure] 41.1 mm[Hg] Normal 30-50 [facility] Comment on above: Performed By: #### C DP, CP, LIP, TROPI, LIPRF, GLYHGB #### [address] [address] [employer] Cutter: Brandon Anaya MD Oxygen saturation in Blood 78.1 % Normal 60.0-85.0 [facility] Comment on above: Performed By: #### C DP, CP, LIP, TROPI, LIPRF, GLYHGB #### [address] [address] [employer]: Brandon Anaya MD pCO2 42.6 Normal 39-55 [facility] Comment on above: Performed By: #### C DP, CP, LIP, TROPI, LIPRF, GLYHGB #### [address] [address] [employer]: Brandon Anaya MD pH (Bld) 7.439 [pH] High 7.320-7.420 [facility] Comment on above: Performed By: #### C DP, CP, LIP, TROPI, LIPRF, GLYHGB #### [address] [address] [employer] Cutter: Brandon Anaya MD Positive Base Excess 4.2 mmol/L High 0.0-2.0 [facility] Comment on above: Performed By: #### C DP, CP, LIP, TROPI, LIPRF, GLYHGB #### [address] [address] [employer] Cutter: Brandon Anaya MD Andrés Test NOT REPORTED Normal [facility] Comment on above: Performed By: #### C DP, CP, LIP, TROPI, LIPRF, GLYHGB #### [address] [address] [employer]: Brandon Anaya MD Methemoglobin NOT REPORTED Normal 0.0-1.5 [facility] Comment on above: Performed By: #### C DP, CP, LIP, TROPI, LIPRF, GLYHGB #### [facility] [address] [place] [address] [employer] Cutter: Brandon Anaya MD Mode NOT REPORTED Normal [facility] Comment on above: Performed By: #### C DP, CP, LIP, TROPI, LIPRF, GLYHGB #### [address] [address] [employer] Cutter: Brandon Anaya MD Negative Base Excess NOT REPORTED Normal 0.0-2.0 [facility] Comment on above: Performed By: #### C DP, CP, LIP, TROPI, LIPRF, GLYHGB #### [address] [address] [employer] C[employer]: Brandon Anaya MD Notification Time NOT REPORTED Normal [facility] Comment on above: Performed By: #### C DP, CP, LIP, TROPI, LIPRF, GLYHGB #### [address] [address] [employer]: Brandon Anaya MD Notification: NOT REPORTED Normal [facility] Comment on above: Performed By: #### C DP, CP, LIP, TROPI, LIPRF, GLYHGB #### [address] [address] [employer]: Brandon Anaya MD O2 Device/Flow/% NOT REPORTED Normal [facility] Comment on above: Performed By: #### C DP, CP, LIP, TROPI, LIPRF, GLYHGB #### [address] [address] [employer]utter: Brandon Anaya MD Oxyhemoglobin NOT REPORTED Normal 95.0-98.0 [facility] Comment on above: Performed By: #### C DP, CP, LIP, TROPI, LIPRF, GLYHGB #### [address] [address] [employer]: Brandon Anaya MD Pco2 Adj'd for Temp. NOT REPORTED Normal 39-55 [facility] Comment on above: Performed By: #### C DP, CP, LIP, TROPI, LIPRF, GLYHGB #### [address] [address] [employer] Cutter: Brandon Anaya MD PEEP/CPAP NOT REPORTED Normal [facility] Comment on above: Performed By: #### C DP, CP, LIP, TROPI, LIPRF, GLYHGB #### [address] [address] [employer] Cutter: Brandon Anaya MD pH Adjst'd for Temp. NOT REPORTED Normal 7.320-7.420 [facility] Comment on above: Performed By: #### C DP, CP, LIP, TROPI, LIPRF, GLYHGB #### [address] [address] [employer] Cutter: Brandon Anaya MD pO2 Adj'd for Temp. NOT REPORTED Normal 30-[address] [facility] [place] Comment on above: Performed By: #### C DP, CP, LIP, TROPI, LIPRF, GLYHGB #### [address] [address] [employer] Cutter: Brandon Anaya MD PSV NOT REPORTED Normal [facility] Comment on above: Performed By: #### C DP, CP, LIP, TROPI, LIPRF, GLYHGB #### [address] [place] [address] [employer] Cutter: Brandon Anaya MD Pt. Position NOT REPORTED Normal [facility] Comment on above: Performed By: #### C DP, CP, LIP, TROPI, LIPRF, GLYHGB #### [address] [address] [employer] Cutter: Brandon Anaya MD Set Rate NOT REPORTED Normal [facility] Comment on above: Performed By: #### C DP, CP, LIP, TROPI, LIPRF, GLYHGB #### [address] [address] [employer] Cutter: Brandon Anaya MD Site Drawn NOT REPORTED Normal [facility] Comment on above: Performed By: #### C DP, CP, LIP, TROPI, LIPRF, GLYHGB #### [address] [address] [employer]utter: Brandon Anaya MD Text for Respiratory NOT REPORTED Normal [facility] Comment on above: Performed By: #### C DP, CP, LIP, TROPI, LIPRF, GLYHGB #### [address] [address] [employer] C[employer]: Brandon Anaya MD Total Hb NOT REPORTED Normal 12.0-16.0 [facility] Comment on above: Performed By: #### C DP, CP, LIP, TROPI, LIPRF, GLYHGB #### [facility] [address] [place] [address] [employer] Cutter: Brandon Anaya MD Total Rate NOT REPORTED Normal [facility] Comment on above: Performed By: #### C DP, CP, LIP, TROPI, LIPRF, GLYHGB #### [facility] [address] [place] [address] [employer]print Cutter: Brandon Anaya MD [place] NOT REPORTED Normal [facility] Comment on above: Performed By: #### C DP, CP, LIP, TROPI, LIPRF, GLYHGB #### [facility] [address] [place] [address] [employer] Cutter: Brandon Anaya MD [facility] Comment: NOT REPORTED Normal [facility] Comment on above: Performed By: #### C DP, CP, LIP, TROPI, LIPRF, GLYHGB #### [address] [address] [employer] Cutter: Brandon Anaya MD Basic Metab w/rfx [facility] 10-11 Potassium [Moles/Vol] 3.3 mmol/L Low 3.7-5.3 [facility] Comment on above: Performed By: #### C DP, CP, LIP, TROPI, LIPRF, GLYHGB #### [address] [address] [employer] C[employer]: Brandon Anaya MD (cont.) Normal [facility] Comment on above: Result Comment: Aver age GFR for 70 or more years old: 75 mL/min/1.73sq m Chronic Kidney Disease: <60 mL/min/1.73sq m Kidney failure: <15 mL/min/1.73sq m eGFR calculated using average adult body mass. Additional eGFR calculator available at: http://www.Bookmycab.opendorse/multiple_crcl_2011.htm Performed By: #### C DP, CP, LIP, TROPI, LIPRF, GLYHGB #### [address] [address] [employer] C[employer]: Brandon Anaya MD Anion gap [Moles/Vol] 12 mmol/L Normal 9-[address] [facility] [place] Comment on above: Performed By: #### C DP, CP, LIP, TROPI, LIPRF, GLYHGB #### [address] [address] [employer]: Brandon Anaya MD Calcium [Mass/Vol] 8.6 mg/dL Normal 8.6-10.4 [facility] Comment on above: Performed By: #### C DP, CP, LIP, TROPI, LIPRF, GLYHGB #### [address] [address] [employer] C[employer]: Brandon Anaya MD Chloride [Moles/Vol] 94 mmol/L Low 98-107 [facility] Comment on above: Performed By: #### C DP, CP, LIP, TROPI, LIPRF, GLYHGB #### [address] [address] [employer] C[employer]: Brandon Anaya MD CO2 [Moles/Vol] 26 mmol/L Normal 20-31 [facility] Comment on above: Performed By: #### C DP, CP, LIP, TROPI, LIPRF, GLYHGB #### [address] [address] [employer]: Brandon Anaya MD Creatinine [Mass/Vol] 0.46 mg/dL Low 0.50-0.90 [facility] Comment on above: Performed By: #### C DP, CP, LIP, TROPI, LIPRF, GLYHGB #### [address] [address] [employer] Cutter: Brandon Anaya MD GFR, Amer >60 Normal >60 [facility] Comment on above: Performed By: #### C DP, CP, LIP, TROPI, LIPRF, GLYHGB #### [address] [address] [employer]print Cutter: Brandon Anaya MD GFR,non Amer >60 Normal >60 [facility] Comment on above: Performed By: #### C DP, CP, LIP, TROPI, LIPRF, GLYHGB #### [facility] [address] [place] [address] [place] [address] [employer]print Cutter: Brandon Anaya MD Glucose [Mass/Vol] 136 mg/dL High 70-99 [facility] Comment on above: Performed By: #### C DP, CP, LIP, TROPI, LIPRF, GLYHGB #### [address] [address] [employer] Cutter: Brandon Anaya MD Sodium [Moles/Vol] 132 mmol/L Low 135-144 [facility] Comment on above: Performed By: #### C DP, CP, LIP, TROPI, LIPRF, GLYHGB #### [address] [address] [employer]print Cutter: Brandon Anaya MD Urea nitrogen [Mass/Vol] 16 mg/dL Normal 8- [facility] Comment on above: Performed By: #### C DP, CP, LIP, TROPI, LIPRF, GLYHGB #### [address] [address] [employer]print Cutter: Brandon Anaya MD BUN/CRE Ratio NOT REPORTED Normal 11-13 [facility] Comment on above: Performed By: #### C DP, CP, LIP, TROPI, LIPRF, GLYHGB #### [facility] [address] [place] [address] [employer] Cutter: Brandon Anaya MD Staging: NOT REPORTED Normal [facility] Comment on above: Performed By: #### C DP, CP, LIP, TROPI, LIPRF, GLYHGB #### [facility] [address] [place] [address] [employer] Cutter: Brandon Anaya MD Basic Metabolic Panel w/ Ref kervin to MGon 10-12-2019 Anion gap [Moles/Vol] 12 mmol/L 9 - 17 mmol/L [place] Bun/Cre Ratio NOT REPORTED [place] Calcium [Mass/Vol] 8.6 mg/dL 8.6 - 10. 4 mg/dL [place] Chloride [Moles/Vol] 94 mmol/L Low 98 - 10 7 mmol/L [place] CO2 [Moles/Vol] 26 mmol/L 20 - 31 mmol/L [place] Creatinine [Mass/Vol] 0.46 mg/dL Low 0.5 - 0.9 mg/dL [place] GFR >60 >60 mL/min [place] GFR Non- >60 >60 mL/min [place] GFR/1.73 sq M predicted among non-blacks MDRD (S/P/Bld) [Vol rate/Area] [place] Comment on above: Average GFR for 70 o r more years old: 75 mL/min/1.73sq m Chronic Kidney Disease: <60 mL/min/1.73sq m Kidney failure: <15 mL/min/1.73sq m eGFR calculated using average adult body mass. Additional eGFR calculator available at: http://www.[employer]/multiple_crcl_2012.htm GFR/1.73 sq M predicted among non-blacks MDRD (S/P/Bld) [Vol rate/Area] NOT REPORTED [place] Glucose [Mass/Vol] 136 mg/dL High 70 - 99 mg/dL [place] Interpretation and review of laboratory results Abnormal [place] Potassium [Moles/Vol] 3.3 mmol/L Low 3.7 - 5.3 mmol/L [place] Sodium [Moles/Vol] 132 mmol/L Low 135 - 144 mmol/L [place] Urea nitrogen [Mass/Vol] 16 mg/dL 8 - 23 mg/dL [place] CBC auto differentialon 09-24 Basophils (Bld) [#/Vol] 0.04 10*3/uL [place] Basophils/100 WBC (Bld) 0 % 0 - 2 % [place] Differential Type NOT REPORTED [place] Eosinophils (Bld) [#/Vol] 10*3/uL [place] Eosinophils/100 WBC (Bld) 0 % Low 1 - 4 % [place] Erythrocyte distribution width (RBC) [Ratio] 14.7 % High 11.8 - 14.4 % [place] Hematocrit (Bld) [Volume fraction] 40.5 % 36.3 - 47.1 % [place] Hemoglobin (Bld) [Mass/Vol] 12.7 g/dL 11.9 - 15.1 g/dL [place] Immature granulocytes (Bld) [#/Vol] 0.11 10*3/uL [place] Immature granulocytes (Bld) [#/Vol] 1 % High 0 [place] Interpretation and review of laboratory results Abnormal [place] Lymphocytes (Bld) [#/Vol] 1.50 10*3/uL [place] Lymphocytes/100 WBC (Bld) 12 % Low 24 - 43 % [place] MCH (RBC) [Entitic mass] 29.4 pg 25.2 - 33.5 pg [place] MCHC (RBC) [Mass/Vol] 31.4 g/dL 28.4 - 34.8 g/dL [place] MCV (RBC) [Entitic vol] 93.8 fL 82.6 - 102.9 fL [place] Monocytes (Bld) [#/Vol] 0.87 10*3/uL [place] Monocytes/100 WBC (Bld) 7 % 3 - 12 % [place] Platelet mean volume (Bld) [Entitic vol] 10.7 fL 8.1 - 13.5 fL [place] Platelets (Bld) [#/Vol] 196 10*3/uL [place] Platelets (Bld) [#/Vol] NOT REPORTED [place] RBC (Bld) [#/Vol] 4.32 10*6/uL 3.95 - 5.1 1 m/uL [place] RBC morphology finding Nom (Bld) ANISOCYTOSIS PRESENT [place] Segmented neutrophils/100 WBC (Bld) 79 % High 36 - 65 % [place] Segs Absolute 9.64 High [place] WBC (Bld) [#/Vol] 12.2 10*3/uL High [place] WBC (Bld) [#/Vol] 0.0 10*3/uL 0.0 per 10 0 WBC [place] WBC Morphology NOT REPORTED [place] CBC with Diffon 10-12-2019 Abs. Basophil 0.04 k/uL Normal 0.00-0.20 [facility] Comment on above: Performed By: #### C DP, CP, LIP, TROPI, LIPRF, GLYHGB #### [place] [address] Blueprint Cutter: Brandon Anaya MD Abs.Imm.Granulocyte 0.11 k/uL Normal 0.00-0.30 [facility] Comment on above: Performed By: #### C DP, CP, LIP, TROPI, LIPRF, GLYHGB #### [facility] [address] [place] [address] [employer]print Cutter: Brandon Anaya MD Abs.Neutrophil (Seg) 9.64 k/uL High 1.50-8.10 [facility] Comment on above: Performed By: #### C DP, CP, LIP, TROPI, LIPRF, GLYHGB #### [facility] [address] [place] [address] [employer] Cutter: Brandon Anaya MD Basophils/100 WBC (Bld) 0 % Normal 0-2 [facility] Comment on above: Performed By: #### C DP, CP, LIP, TROPI, LIPRF, GLYHGB #### [address] [address] [employer]print Cutter: Brandon Aanya MD Eosinophils (Bld) [#/Vol] 10*3/uL Normal 0.00-0.44 [facility] Comment on above: Performed By: #### C DP, CP, LIP, TROPI, LIPRF, GLYHGB #### [facility] [address] [place] [address] [employer] Cutter: Brandon Anaya MD Eosinophils/100 WBC (Bld) 0 % Low 1-4 [facility] Comment on above: Performed By: #### C DP, CP, LIP, TROPI, LIPRF, GLYHGB #### [address] [address] [employer]print Cutter: Brandon Anaya MD Erythrocyte distribution width (RBC) [Ratio] 14.7 % High 11.8-14.4 [facility] Comment on above: Performed By: #### C DP, CP, LIP, TROPI, LIPRF, GLYHGB #### [facility] [address] [place] [address] [employer] Cutter: Brandon Anaya MD Hematocrit (Bld) [Volume fraction] 40.5 % Normal 36.3-47.1 [facility] Comment on above: Performed By: #### C DP, CP, LIP, TROPI, LIPRF, GLYHGB #### [address] [address] [employer] Cutter: Brandon Anaya MD Hemoglobin (Bld) [Mass/Vol] 12.7 g/dL Normal 11.9-15.1 [facility] Comment on above: Performed By: #### C DP, CP, LIP, TROPI, LIPRF, GLYHGB #### [facility] [address] [place] [address] [employer] Cutter: Brandon Anaya MD Immature granulocytes (Bld) [#/Vol] 1 % High 0 [facility] Comment on above: Performed By: #### C DP, CP, LIP, TROPI, LIPRF, GLYHGB #### [facility] [address] [place] [address] [employer] Cutter: Brandon Anaya MD Lymphocytes (Bld) [#/Vol] 1.50 10*3/uL Normal 1.10-3.70 [facility] Comment on above: Performed By: #### C DP, CP, LIP, TROPI, LIPRF, GLYHGB #### [address] [address] [employer] Cutter: Brandon Anaya MD Lymphocytes/100 WBC (Bld) 12 % Low 24-43 [facility] Comment on above: Performed By: #### C DP, CP, LIP, TROPI, LIPRF, GLYHGB #### [address] [address] [employer] Cutter: Brandon Anaya MD MCH (RBC) [Entitic mass] 29.4 pg Normal 25.2-33.5 [facility] Comment on above: Performed By: #### C DP, CP, LIP, TROPI, LIPRF, GLYHGB #### [address] [address] [employer] Cutter: Brandon Anaya MD MCHC (RBC) [Mass/Vol] 31.4 g/dL Normal 28.4-34.8 [facility] Comment on above: Performed By: #### C DP, CP, LIP, TROPI, LIPRF, GLYHGB #### [address] [address] [employer] Cutter: Brandon Anaya MD MCV (RBC) [Entitic vol] 93.8 fL Normal 82.6-102.9 [facility] Comment on above: Performed By: #### C DP, CP, LIP, TROPI, LIPRF, GLYHGB #### [address] [address] [employer] Cutter: Brandon Anaya MD Monocytes (Bld) [#/Vol] 0.87 10*3/uL Normal 0.10-1.20 [facility] Comment on above: Performed By: #### C DP, CP, LIP, TROPI, LIPRF, GLYHGB #### [address] [address] [employer] Cutter: Brandon Anaya MD Monocytes/100 WBC (Bld) 7 % Normal 3-12 [facility] Comment on above: Performed By: #### C DP, CP, LIP, TROPI, LIPRF, GLYHGB #### [address] [address] [employer]print Cutter: Brandon Anaya MD Neutrophil (Seg) 79 % High 36-65 [facility] Comment on above: Performed By: #### C DP, CP, LIP, TROPI, LIPRF, GLYHGB #### [address] [address] [employer]print Cutter: Brandon Anaya MD NRBC Automated 0.0 per 100 WBC Normal 0.0 [facility] Comment on above: Performed By: #### C DP, CP, LIP, TROPI, LIPRF, GLYHGB #### [address] [address] [employer] Cutter: Brandon Anaya MD Platelet mean volume (Bld) [Entitic vol] 10.7 fL Normal 8.1-13.5 [facility] Comment on above: Performed By: #### C DP, CP, LIP, TROPI, LIPRF, GLYHGB #### [address] [address] [employer] Cutter: Brandon Anaya MD Platelets (Bld) [#/Vol] 196 10*3/uL Normal 138-453 [facility] Comment on above: Performed By: #### C DP, CP, LIP, TROPI, LIPRF, GLYHGB #### [address] [address] [employer] Cutter: Brandon Anaya MD RBC (Bld) [#/Vol] 4.32 10*6/uL Normal 3.95-5.11 [facility] Comment on above: Performed By: #### C DP, CP, LIP, TROPI, LIPRF, GLYHGB #### [address] [address] [employer]print Cutter: Brandon Anaya MD RBC morphology finding Nom (Bld) ANISOCYTOSIS PRESENT Normal [facility] Comment on above: Performed By: #### C DP, CP, LIP, TROPI, LIPRF, GLYHGB #### [address] [address] [employer]print Cutter: Brandon Anaya MD WBC (Bld) [#/Vol] 12.2 10*3/uL High 3.5-11.3 [facility] Comment on above: Performed By: #### C DP, CP, LIP, TROPI, LIPRF, GLYHGB #### [address] [address] [employer] Cutter: Brandon Anaya MD Auto Diff Performed NOT REPORTED Normal [facility] Comment on above: Performed By: #### C DP, CP, LIP, TROPI, LIPRF, GLYHGB #### [address] [address] [employer] Cutter: Brandon Anaya MD Platelets (Bld) [#/Vol] NOT REPORTED Normal [facility] Comment on above: Performed By: #### C DP, CP, LIP, TROPI, LIPRF, GLYHGB #### [address] [address] [employer]print Cutter: Brandon Anaya MD WBC Morphology NOT REPORTED Normal [facility] Comment on above: Performed By: #### C DP, CP, LIP, TROPI, LIPRF, GLYHGB #### [facility] [address] [place] [address] [employer] Cutter: Brandon Anaya MD Magnesiumon 10-12-2019 Magnesium [Mass/Vol] 2.2 mg/dL Normal 1.6-2.6 [facility] Comment on above: Performed By: #### C DP, CP, LIP, TROPI, LIPRF, GLYHGB #### [facility] [address] [place] [address] Blueprint Cutter: Brandon Anaya MD Magnesium [Mass/Vol] 2.2 mg/dL 1.6 - 2 .6 mg/dL [place] POC Glucose Fingerstickon Glucose [Mass/Vol] 117 mg/dL High 65 - 105 mg/dL [place] Interpretation and review of laboratory results Abnormal [place] Glucose [Mass/Vol] 115 mg/dL High 65 - 105 mg/dL [place] Interpretation and review of laboratory results Abnormal [place] Glucose [Mass/Vol] 123 mg/dL High 65 - 105 mg/dL [place] Interpretation and review of laboratory results Abnormal [place] Glucose [Mass/Vol] 117 mg/dL High 65 - 105 mg/dL [place] Interpretation and review of laboratory results Abnormal [place] URINALYSIS WITH MICROSCOPICo n 10-12-2019 Amorphous, UA NOT REPORTED None [place] Bacteria, UA NOT REPORTED None [place] Bilirubin Urine Negative NEGATIVE [place] Casts UA 0 TO 2 HYALINE Refer ence range defined for non-centrifuged specimen. [place] Color, UA YELLOW YELLOW [place] Crystals, UA NOT REPORTED None /HPF [place] Epithelial Cells UA 2 TO 5 [place] Glucose, Ur Negative NEGATIVE [place] Interpretation and review of laboratory results Abnormal [place] Ketones Ql (U) SMALL Abnormal NEGATIVE [place] Leukocyte esterase Test strip Ql (U) Negative NEGATIVE [place] Mucus, UA NOT REPORTED None [place] Nitrite, Urine Negative NEGATIVE [place] Other Observations UA NOT REPORTED NOT REQ. M [place] pH, UA 8.5 High [place] Protein (U) [Mass/Vol] Negative NEGATIVE [place] RBC (U) [#/Vol] TOO NUMEROUS TO COUNT [place] Comment on above: Reference range defi nya for non-centrifuged specimen. Renal Epithelial, UA NOT REPORTED 0 /HPF [place] Specific [place], UA 1.011 [place] Trichomonas, UA NOT REPORTED None [place] Turbidity UA TURBID Abnormal CLEAR [place] Urine Hgb Negative NEGATIVE [place] Urobilinogen, Urine Normal Normal [place] WBC, UA 0 TO 2 [place] Yeast, UA NOT REPORTED None [place] Urinalysis w/ Microon 2019 ----- Normal [facility] Comment on above: Performed By: #### C DP, CP, LIP, TROPI, LIPRF, GLYHGB #### [facility] [address] [place] [address] [employer]print Cutter: Brandon Anaya MD Acetoacetic Acid,Ur SMALL Abnormal NEG [facility] Comment on above: Performed By: #### C DP, CP, LIP, TROPI, LIPRF, GLYHGB #### [facility] [address] [place] [address] [employer]print Cutter: Brandon Anaya MD Bilirubin, SemiQt,Ur Negative Normal NEG [facility] Comment on above: Performed By: #### C DP, CP, LIP, TROPI, LIPRF, GLYHGB #### [facility] [address] [place] [address] [employer] Cutter: Brandon Anaya MD Casts LM.LPF (Urine sed) [#/Area] 0 TO 2 HYALINE Normal 0-8 [facility] Comment on above: Result Comment: Refe rence range defined for non-centrifuged specimen. Performed By: #### C DP, CP, LIP, TROPI, LIPRF, GLYHGB #### [address] [address] [employer] Cutter: Brandon Anaya MD Color (U) YELLOW Normal YEL [facility] Comment on above: Performed By: #### C DP, CP, LIP, TROPI, LIPRF, GLYHGB #### [address] [address] [employer] Cutter: Brandon Anaya MD Epithelial cells LM.HPF (Urine sed) [#/Area] 2 TO 5 Normal 0-5 [facility] Comment on above: Performed By: #### C DP, CP, LIP, TROPI, LIPRF, GLYHGB #### [address] [address] [employer]print Cutter: Brandon Anaya MD Glucose Ql (U) Negative Normal NEG [facility] Comment on above: Performed By: #### C DP, CP, LIP, TROPI, LIPRF, GLYHGB #### [address] [address] [employer]print Cutter: Brandon Anaya MD Hemoglobin, Ur Negative Normal NEG [facility] Comment on above: Performed By: #### C DP, CP, LIP, TROPI, LIPRF, GLYHGB #### [address] [address] [employer]print Cutter: Brandon Anaya MD Leukocyte esterase Test strip Ql (U) Negative Normal NEG [facility] Comment on above: Performed By: #### C DP, CP, LIP, TROPI, LIPRF, GLYHGB #### [facility] [address] [place] [address] [employer] Cutter: Brandon Anaya MD Nitrite,Ur Negative Normal NEG [facility] Comment on above: Performed By: #### C DP, CP, LIP, TROPI, LIPRF, GLYHGB #### [facility] [address] [place] [address] [employer] Cutter: Brandon Anaya MD pH (U) 8.5 [pH] High 5.0-8.0 [facility] Comment on above: Performed By: #### C DP, CP, LIP, TROPI, LIPRF, GLYHGB #### [address] [address] [employer] Cutter: Brandon Anaya MD Protein Ql (U) Negative Normal NEG [facility] Comment on above: Performed By: #### C DP, CP, LIP, TROPI, LIPRF, GLYHGB #### [address] [address] [employer]print Cutter: Brandon Anaya MD RBC (U) [#/Vol] TOO NUMEROUS TO COUNT Normal 0-4 [facility] Comment on above: Result Comment: Refe rence range defined for non-centrifuged specimen. Performed By: #### C DP, CP, LIP, TROPI, LIPRF, GLYHGB #### [address] [address] [employer]print Cutter: Brandon Anaya MD Specific gravity (U) [Rel density] 1.011 Normal 1.005-1.030 [facility] Comment on above: Performed By: #### C DP, CP, LIP, TROPI, LIPRF, GLYHGB #### [facility] [address] [place] [address] [employer] Cutter: Brandon Anaya MD Turbidity TURBID Abnormal CLEAR [facility] Comment on above: Performed By: #### C DP, CP, LIP, TROPI, LIPRF, GLYHGB #### [facility] [address] [place] [address] [employer]print Cutter: Brandon Anaya MD Urobilinogen,Ur Normal Normal NORM [facility] Comment on above: Performed By: #### C DP, CP, LIP, TROPI, LIPRF, GLYHGB #### [facility] [address] [place] [address] [employer]print Cutter: Brandon Anaya MD WBC (U) [#/Vol] 0 TO 2 Normal 0-5 [facility] Comment on above: Performed By: #### C DP, CP, LIP, TROPI, LIPRF, GLYHGB #### [facility] [address] [place] [address] Blueprint Cutter: Brandon Anaya MD Amorphous sediment LM Ql (Urine sed) NOT REPORTED Normal [facility] Comment on above: Performed By: #### C DP, CP, LIP, TROPI, LIPRF, GLYHGB #### [address] [address] Blueprint Cutter: Brandon Anaya MD Bacteria LM.HPF (Urine sed) [#/Area] NOT REPORTED Normal NONE [facility] Comment on above: Performed By: #### C DP, CP, LIP, TROPI, LIPRF, GLYHGB #### [facility] [address] [place] [address] [employer] Cutter: Brandon Anaya MD Crystals LM Nom (Urine sed) NOT REPORTED Normal [facility] Comment on above: Performed By: #### C DP, CP, LIP, TROPI, LIPRF, GLYHGB #### [facility] [address] [place] [address] [employer]print Cutter: Brandon Anaya MD Epithelial, Renal NOT REPORTED Normal 0 [facility] Comment on above: Performed By: #### C DP, CP, LIP, TROPI, LIPRF, GLYHGB #### [facility] [address] [place] [address] [employer]print Cutter: Brandon Anaya MD Mucus Strands NOT REPORTED Normal NONE [facility] Comment on above: Performed By: #### C DP, CP, LIP, TROPI, LIPRF, GLYHGB #### [facility] [address] [place] [address] Blueprint Cutter: Brandon Anaya MD Other Observations NOT REPORTED Normal NREQ [facility] Comment on above: Performed By: #### C DP, CP, LIP, TROPI, LIPRF, GLYHGB #### [facility] [place] [address] Blueprint Cutter: Brandon Anaya MD Trichomonas NOT REPORTED Normal NONE [facility] Comment on above: Performed By: #### C DP, CP, LIP, TROPI, LIPRF, GLYHGB #### [facility] [address] [place] [address] Blueprint Cutter: Brandon Anaya MD Yeast LM Ql (Urine sed) NOT REPORTED Normal [facility] Comment on above: Performed By: #### C DP, CP, LIP, TROPI, LIPRF, GLYHGB #### [facility] [place] [address] [employer]print Cutter: Brandon Anaya MD RENAL ARTERIAL DUPLEX COM PLETEon 10-12-2019 [facility] Vascular Renal Procedure Patient Name ALEYDA Date of Study 10/12/2019 ZACHARY Date of 1945 Gender Female Age 74 year(s) Race Room Number 2015 Corporate ID [id number] # Patient Acct [id number] # MR # [id number] Backend Python Developer Celena Juarez, JACEK, RDMS Interpreting Jamison Galo [...] The average kidney length is 10.75 cm. [facility] [place] Pri[place], Mhpn Incoming Cardio Results From [facility]Local [facility] - 10/12/2019 7:54 PM EDT [facility] Vascular Renal Procedure Patient Name ALEYDA Date of Study 10/12/2019 ZACHARY Date of 1945 Gender Female Age 74 year(s) Race Room Number 2015 Corporate ID [id number] # Patient Acct [id number] # MR # [id number] Backend Python Developer Celena Juarez RVT, RDMS Interpreting [employer] Galo [...] The average kidney length is 10.75 cm. [facility] [place] XR CHEST PORTABLEon 10-12-19 20 [...] Argentina Guzmán MD 10/11/19 Final result Normal [facility] Basic Metab w/rfx MGon 10-10 (cont.) Normal [facility] Comment on above: Result Comment: Aver age GFR for 70 or more years old: 75 mL/min/1.73sq m Chronic Kidney Disease: <60 mL/min/1.73sq m Kidney failure: <15 mL/min/1.73sq m eGFR calculated using average adult body mass. Additional eGFR calculator available at: http://www.[employer]/multiple_crcl_2012.htm Performed By: #### C DP, CP, LIP, TROPI, LIPRF, GLYHGB #### [facility] [address] [place] [address] Blueprint Cutter: Brandon Anaya MD Anion gap [Moles/Vol] 15 mmol/L Normal - [facility] Comment on above: Performed By: #### C DP, CP, LIP, TROPI, LIPRF, GLYHGB #### [employer] [facility] [address] [place] [address] Blueprint Cutter: Brandon Anaya MD Calcium [Mass/Vol] 9.2 mg/dL Normal 8.6-10.4 [facility] Comment on above: Performed By: #### C DP, CP, LIP, TROPI, LIPRF, GLYHGB #### [address] [address] [employer]print Cutter: Brandon Anaya MD Chloride [Moles/Vol] 96 mmol/L Low 98-107 [facility] Comment on above: Performed By: #### C DP, CP, LIP, TROPI, LIPRF, GLYHGB #### [address] [address] [employer] Cutter: Brandon Anaya MD CO2 [Moles/Vol] 24 mmol/L Normal 20-31 [facility] Comment on above: Performed By: #### C DP, CP, LIP, TROPI, LIPRF, GLYHGB #### [address] [address] [employer] Cutter: Brandon Anaya MD Creatinine [Mass/Vol] 0.55 mg/dL Normal 0.50-0.90 [facility] Comment on above: Performed By: #### C DP, CP, LIP, TROPI, LIPRF, GLYHGB #### [address] [address] [employer] Cutter: Brandon Anaya MD GFR, Amer >60 Normal >60 [facility] Comment on above: Performed By: #### C DP, CP, LIP, TROPI, LIPRF, GLYHGB #### [address] [address] [employer]print Cutter: Brandon Anaya MD GFR,non Amer >60 Normal >60 [facility] Comment on above: Performed By: #### C DP, CP, LIP, TROPI, LIPRF, GLYHGB #### [address] [address] [employer] Cutter: Brandon Anaya MD Glucose [Mass/Vol] 146 mg/dL High 70-99 [facility] Comment on above: Performed By: #### C DP, CP, LIP, TROPI, LIPRF, GLYHGB #### [address] [address] [employer]print Cutter: Brandon Anaya MD Potassium [Moles/Vol] 3.6 mmol/L Low 3.7-5.3 [facility] Comment on above: Performed By: #### C DP, CP, LIP, TROPI, LIPRF, GLYHGB #### [address] [address] [employer] Cutter: Brandon Anaya MD Sodium [Moles/Vol] 135 mmol/L Normal 135-144 [facility] Comment on above: Performed By: #### C DP, CP, LIP, TROPI, LIPRF, GLYHGB #### [address] [address] [employer] Cutter: Brandon Anaya MD Urea nitrogen [Mass/Vol] 13 mg/dL Normal 8-23 [facility] Comment on above: Performed By: #### C DP, CP, LIP, TROPI, LIPRF, GLYHGB #### [address] [address] [employer]print Cutter: Brandon Anaya MD BUN/CRE Ratio NOT REPORTED Normal - [facility] Comment on above: Performed By: #### C DP, CP, LIP, TROPI, LIPRF, GLYHGB #### [address] [address] [employer]print Cutter: Brandon Anaya MD Staging: NOT REPORTED Normal [facility] Comment on above: Performed By: #### C DP, CP, LIP, TROPI, LIPRF, GLYHGB #### [address] [address] [employer] Cutter: Brandon Anaya MD Basic Metabolic Panel w/ Ref kervin to MGon 10-11-2019 Anion gap [Moles/Vol] 15 mmol/L 9 - 17 mmol/L [place] Bun/Cre Ratio NOT REPORTED [place] Calcium [Mass/Vol] 9.2 mg/dL 8.6 - 10. 4 mg/dL [place] Chloride [Moles/Vol] 96 mmol/L Low 98 - 10 7 mmol/L [place] CO2 [Moles/Vol] 24 mmol/L 20 - 31 mmol/L [place] [place] Creatinine [Mass/Vol] 0.55 mg/dL 0.5 - 0.9 mg/dL [place] GFR >60 >60 mL/min [place] GFR Non- >60 >60 mL/min [place] GFR/1.73 sq M predicted among non-blacks MDRD (S/P/Bld) [Vol rate/Area] NOT REPORTED [place] GFR/1.73 sq M predicted among non-blacks MDRD (S/P/Bld) [Vol rate/Area] [place] Comment on above: Average GFR for 70 o r more years old: 75 mL/min/1.73sq m Chronic Kidney Disease: <60 mL/min/1.73sq m Kidney failure: <15 mL/min/1.73sq m eGFR calculated using average adult body mass. Additional eGFR calculator available at: http://www.Consano/multiple_crcl_2012.htm Glucose [Mass/Vol] 146 mg/dL High 70 - 99 mg/dL [place] Interpretation and review of laboratory results Abnormal [place] Potassium [Moles/Vol] 3.6 mmol/L Low 3.7 - 5.3 mmol/L [place] Sodium [Moles/Vol] 135 mmol/L 135 - 144 mmol/L [place] Urea nitrogen [Mass/Vol] 13 mg/dL 8 - 23 mg/dL [place] CBC auto differentialon 09-24 Basophils (Bld) [#/Vol] 0.03 10*3/uL [place] Basophils/100 WBC (Bld) 0 % 0 - 2 % [place] Differential Type NOT REPORTED [place] Eosinophils (Bld) [#/Vol] 10*3/uL [place] Eosinophils/100 WBC (Bld) 0 % Low 1 - 4 % [place] Erythrocyte distribution width (RBC) [Ratio] 14.3 % 11.8 - 14.4 % [place] Hematocrit (Bld) [Volume fraction] 43.6 % 36.3 - 47.1 % [place] Hemoglobin (Bld) [Mass/Vol] 13.7 g/dL 11.9 - 15.1 g/dL [place] Immature granulocytes (Bld) [#/Vol] 1 % High 0 [place] Immature granulocytes (Bld) [#/Vol] 0.07 10*3/uL [place] Interpretation and review of laboratory results Abnormal [place] Lymphocytes (Bld) [#/Vol] 0.92 10*3/uL Low [place] Lymphocytes/100 WBC (Bld) 14 % Low 24 - 43 % [place] MCH (RBC) [Entitic mass] 29.1 pg 25.2 - 33.5 pg [place] MCHC (RBC) [Mass/Vol] 31.4 g/dL 28.4 - 34.8 g/dL [place] MCV (RBC) [Entitic vol] 92.6 fL 82.6 - 102.9 fL [place] Monocytes (Bld) [#/Vol] 0.07 10*3/uL Low [place] Monocytes/100 WBC (Bld) 1 % Low 3 - 12 % [place] Platelet mean volume (Bld) [Entitic vol] 10.6 fL 8.1 - 13.5 fL [place] Platelets (Bld) [#/Vol] NOT REPORTED [place] Platelets (Bld) [#/Vol] 196 10*3/uL [place] RBC (Bld) [#/Vol] 4.71 10*6/uL 3.95 - 5.1 1 m/uL [place] RBC morphology finding Nom (Bld) NOT REPORTED [place] Segmented neutrophils/100 WBC (Bld) 84 % High 36 - 65 % [place] Segs Absolute 5.67 [place] WBC (Bld) [#/Vol] 0.0 10*3/uL 0.0 per 10 0 WBC [place] WBC (Bld) [#/Vol] 6.8 10*3/uL [place] WBC Morphology NOT REPORTED [place] CBC with Diffon 10-11-2019 Abs. Basophil 0.03 k/uL Normal 0.00-0.20 [facility] Comment on above: Performed By: #### C DP, CP, LIP, TROPI, LIPRF, GLYHGB #### [facility] [address] [place] [address] Blueprint Cutter: Brandon Anaya MD Abs.Imm.Granulocyte 0.07 k/uL Normal 0.00-0.30 [facility] Comment on above: Performed By: #### C DP, CP, LIP, TROPI, LIPRF, GLYHGB #### [facility] [address] [place] [address] Blueprint Cutter: Brandon Anaya MD Abs.Neutrophil (Seg) 5.67 k/uL Normal 1.50-8.10 [facility] Comment on above: Performed By: #### C DP, CP, LIP, TROPI, LIPRF, GLYHGB #### [facility] [address] [place] [address] Blueprint Cutter: Brandon Anaya MD Basophils/100 WBC (Bld) 0 % Normal 0-2 [facility] Comment on above: Performed By: #### C DP, CP, LIP, TROPI, LIPRF, GLYHGB #### [facility] [address] [place] [address] [phone] Blueprint Cutter: Brandon Anaya MD Eosinophils (Bld) [#/Vol] 10*3/uL Normal 0.00-0.44 [facility] Comment on above: Performed By: #### C DP, CP, LIP, TROPI, LIPRF, GLYHGB #### [facility] [address] [place] [address] Blueprint Cutter: Brandon Anaya MD Eosinophils/100 WBC (Bld) 0 % Low 1-4 [facility] Comment on above: Performed By: #### C DP, CP, LIP, TROPI, LIPRF, GLYHGB #### [place] [address] Blueprint Cutter: Brandon Anaya MD Erythrocyte distribution width (RBC) [Ratio] 14.3 % Normal 11.8-14.4 [facility] Comment on above: Performed By: #### C DP, CP, LIP, TROPI, LIPRF, GLYHGB #### [place] [address] Blueprint Cutter: Brandon Anaya MD Hematocrit (Bld) [Volume fraction] 43.6 % Normal 36.3-47.1 [facility] Comment on above: Performed By: #### C DP, CP, LIP, TROPI, LIPRF, GLYHGB #### [address] [address] Blueprint Cutter: Brandon Anaya MD Hemoglobin (Bld) [Mass/Vol] 13.7 g/dL Normal 11.9-15.1 [facility] Comment on above: Performed By: #### C DP, CP, LIP, TROPI, LIPRF, GLYHGB #### [facility] [address] [place] [address] Blueprint Cutter: Brandon Anaya MD Immature granulocytes (Bld) [#/Vol] 1 % High 0 [facility] Comment on above: Performed By: #### C DP, CP, LIP, TROPI, LIPRF, GLYHGB #### [address] [address] Blueprint Cutter: Brandon Anaya MD Lymphocytes (Bld) [#/Vol] 0.92 10*3/uL Low 1.10-3.70 [facility] Comment on above: Performed By: #### C DP, CP, LIP, TROPI, LIPRF, GLYHGB #### [address] [address] Blueprint Cutter: Brandon Anaya MD Lymphocytes/100 WBC (Bld) 14 % Low 24-43 [facility] Comment on above: Performed By: #### C DP, CP, LIP, TROPI, LIPRF, GLYHGB #### [address] [address] Blueprint Cutter: Brandon Anaya MD MCH (RBC) [Entitic mass] 29.1 pg Normal 25.2-33.5 [facility] Comment on above: Performed By: #### C DP, CP, LIP, TROPI, LIPRF, GLYHGB #### [place] [address] Blueprint Cutter: Brandon Anaya MD MCHC (RBC) [Mass/Vol] 31.4 g/dL Normal 28.4-34.8 [facility] Comment on above: Performed By: #### C DP, CP, LIP, TROPI, LIPRF, GLYHGB #### [address] [address] Blueprint Cutter: Brandon Anaya MD MCV (RBC) [Entitic vol] 92.6 fL Normal 82.6-102.9 [facility] Comment on above: Performed By: #### C DP, CP, LIP, TROPI, LIPRF, GLYHGB #### [address] [address] Blueprint Cutter: Brandon Anaya MD Monocytes (Bld) [#/Vol] 0.07 10*3/uL Low 0.10-1.20 [facility] Comment on above: Performed By: #### C DP, CP, LIP, TROPI, LIPRF, GLYHGB #### [address] [address] Blueprint Cutter: Brandon Anaya MD Monocytes/100 WBC (Bld) 1 % Low 3-12 [facility] Comment on above: Performed By: #### C DP, CP, LIP, TROPI, LIPRF, GLYHGB #### [place] [address] Blueprint Cutter: Brandon Anaya MD Neutrophil (Seg) 84 % High 36-65 [facility] Comment on above: Performed By: #### C DP, CP, LIP, TROPI, LIPRF, GLYHGB #### [place] [address] Blueprint Cutter: Brandon Anaya MD NRBC Automated 0.0 per 100 WBC Normal 0.0 [facility] Comment on above: Performed By: #### C DP, CP, LIP, TROPI, LIPRF, GLYHGB #### [place] [address] Blueprint Cutter: Brandon Anaya MD Platelet mean volume (Bld) [Entitic vol] 10.6 fL Normal 8.1-13.5 [facility] Comment on above: Performed By: #### C DP, CP, LIP, TROPI, LIPRF, GLYHGB #### [place] [address] Blueprint Cutter: Brandon Anaya MD Platelets (Bld) [#/Vol] 196 10*3/uL Normal 138-453 [facility] Comment on above: Performed By: #### C DP, CP, LIP, TROPI, LIPRF, GLYHGB #### [address] [address] Blueprint Cutter: Brandon Anaya MD RBC (Bld) [#/Vol] 4.71 10*6/uL Normal 3.95-5.11 [facility] Comment on above: Performed By: #### C DP, CP, LIP, TROPI, LIPRF, GLYHGB #### [address] [address] Blueprint Cutter: Brandon Anaya MD WBC (Bld) [#/Vol] 6.8 10*3/uL Normal 3.5-11.3 [facility] Comment on above: Performed By: #### C DP, CP, LIP, TROPI, LIPRF, GLYHGB #### [address] [address] Blueprint Cutter: Brandon Anaya MD Auto Diff Performed NOT REPORTED Normal [facility] Comment on above: Performed By: #### C DP, CP, LIP, TROPI, LIPRF, GLYHGB #### [address] [address] Blueprint Cutter: Brandon Anaya MD Platelets (Bld) [#/Vol] NOT REPORTED Normal [facility] Comment on above: Performed By: #### C DP, CP, LIP, TROPI, LIPRF, GLYHGB #### [address] [address] Blueprint Cutter: Brandon Anaya MD RBC morphology finding Nom (Bld) NOT REPORTED Normal [facility] Comment on above: Performed By: #### C DP, CP, LIP, TROPI, LIPRF, GLYHGB #### [address] [address] Blueprint Cutter: Brandon Anaya MD WBC Morphology NOT REPORTED Normal [facility] Comment on above: Performed By: #### C DP, CP, LIP, TROPI, LIPRF, GLYHGB #### [facility] [address] [phone] Blueprint Cutter: Brandon Anaya MD MRI BRAIN W WO [...] Chaitanya Sawyer MD 10/11/19 Final result Normal [facility] [place], [employer] Incoming Radiant Results From Chat& (ChatAnd)/Pacs - 10/11/2019 3:07 PM EDT EXAMINATION: MRI [...] Small meningioma over the right frontal lobe. [place] Volume loss with chr onic white matter microvascular ischemic change. Small meningioma over the right frontal lobe. [place] EXAMINATION: MRI OF THE BRAIN WITHOUT [...] The soft tissues demonstrate no acute abnormality. [facility] [place] POC Glucose Fingerstickon Glucose [Mass/Vol] 121 mg/dL High 65 - 105 mg/dL [place] Interpretation and review of laboratory results Abnormal [place] Glucose [Mass/Vol] 171 mg/dL High 65 - 105 mg/dL [place] Interpretation and review of laboratory results Abnormal [place] Glucose [Mass/Vol] 127 mg/dL High 65 - 105 mg/dL [place] Interpretation and review of laboratory results Abnormal [place] Glucose [Mass/Vol] 145 mg/dL High 65 - 105 mg/dL [place] Interpretation and review of laboratory results Abnormal [place] XR CHEST PORTABLEon 10-11-19 EXAMINATION: ONE XRA Y VIEW OF THE CHEST 10/11/2019 10:45 pm COMPARISON: 06/27/2017 HISTORY: ORDERING SYSTEM PROVIDED HISTORY: evaluate TECHNOLOGIST PROVIDED HISTORY: evaluate Reason for Exam: Upright portable Acuity: Unknown Type of Exam: Unknown FINDINGS: Cardiomediastinal silhouette is unchanged in size. Aortic atherosclerosis. No pulmonary consolidation, pleural effusion, or pneumothorax. No acute osseous abnormality. [place], [place] Incoming Radiant Results From [employer] ([employer]And[employer] - 10/11/2019 11:49 PM EDT EXAMINATION: ONE XRAY VIEW OF THE CHEST 10/11/2019 10:45 pm COMPARISON: 06/27/2017 HISTORY: ORDERING SYSTEM PROVIDED HISTORY: evaluate TECHNOLOGIST PROVIDED HISTORY: evaluate Reason for Exam: Upright portable Acuity: Unknown Type of Exam: Unknown FINDINGS: Cardiomediastinal silhouette is unchanged in size. Aortic atherosclerosis. No pulmonary consolidation, pleural effusion, or pneumothorax. No acute osseous abnormality. IMPRESSION: No acute cardiopulmonary abnormality. [place] No acute cardiopulmo nary abnormality. [place] Basic Metab w/rfx MGon 10-09 (cont.) Normal [facility] Comment on above: Result Comment: Aver age GFR for 70 or more years old: 75 mL/min/1.73sq m Chronic Kidney Disease: <60 mL/min/1.73sq m Kidney failure: <15 mL/min/1.73sq m eGFR calculated using average adult body mass. Additional eGFR calculator available at: http://www.Bookmycab.opendorse/multiple_crcl_2011.htm Performed By: #### C DP, CP, LIP, TROPI, LIPRF, GLYHGB #### [facility] [place] [address] Blueprint Cutter: Brandon Anaya MD Anion gap [Moles/Vol] 10 mmol/L Normal 9-17 [facility] Comment on above: Performed By: #### C DP, CP, LIP, TROPI, LIPRF, GLYHGB #### [facility] [address] [place] [address] Blueprint Cutter: Brandon Anaya MD Calcium [Mass/Vol] 9.0 mg/dL Normal 8.6-10.4 [facility] Comment on above: Performed By: #### C DP, CP, LIP, TROPI, LIPRF, GLYHGB #### [facility] [address] [place] [address] [employer]print Cutter: Brandon Anaya MD Chloride [Moles/Vol] 97 mmol/L Low 98-107 [facility] Comment on above: Performed By: #### C DP, CP, LIP, TROPI, LIPRF, GLYHGB #### [facility] [address] [place] [address] [employer]print Cutter: Brandon Anaya MD CO2 [Moles/Vol] 25 mmol/L Normal 20-31 [facility] Comment on above: Performed By: #### C DP, CP, LIP, TROPI, LIPRF, GLYHGB #### [facility] [address] [place] [address] Blueprint Cutter: Brandon Anaya MD Creatinine [Mass/Vol] 0.50 mg/dL Normal 0.50-0.90 [facility] Comment on above: Performed By: #### C DP, CP, LIP, TROPI, LIPRF, GLYHGB #### [facility] [address] [place] [address] [employer]print Cutter: Brandon Anaya MD GFR, Amer >60 Normal >60 [facility] Comment on above: Performed By: #### C DP, CP, LIP, TROPI, LIPRF, GLYHGB #### [facility] [address] [place] [address] Blueprint Cutter: Brandon Anaya MD GFR,non Amer >60 Normal >60 [facility] Comment on above: Performed By: #### C DP, CP, LIP, TROPI, LIPRF, GLYHGB #### [facility] [address] [place] [address] Blueprint Cutter: Brandon Anaya MD Glucose [Mass/Vol] 123 mg/dL High 70-99 [facility] Comment on above: Performed By: #### C DP, CP, LIP, TROPI, LIPRF, GLYHGB #### [address] [address] Blueprint Cutter: Brandon Anaya MD Potassium [Moles/Vol] 3.5 mmol/L Low 3.7-5.3 [facility] Comment on above: Performed By: #### C DP, CP, LIP, TROPI, LIPRF, GLYHGB #### [address] [address] [employer]print Cutter: Brandon Anaya MD Sodium [Moles/Vol] 132 mmol/L Low 135-144 [facility] Comment on above: Performed By: #### C DP, CP, LIP, TROPI, LIPRF, GLYHGB #### [address] [address] Blueprint Cutter: Brandon Anaya MD Urea nitrogen [Mass/Vol] 14 mg/dL Normal 8-23 [facility] Comment on above: Performed By: #### C DP, CP, LIP, TROPI, LIPRF, GLYHGB #### [address] [address] Blueprint Cutter: Brandon Anaya MD BUN/CRE Ratio NOT REPORTED Normal 9-20 [facility] Comment on above: Performed By: #### C DP, CP, LIP, TROPI, LIPRF, GLYHGB #### [facility] [address] [place] [address] Blueprint Cutter: Brandon Anaya MD Staging: NOT REPORTED Normal [facility] Comment on above: Performed By: #### C DP, CP, LIP, TROPI, LIPRF, GLYHGB #### [facility] [address] [place], [place] [phone] Blueprint Cutter: Brandon Anaya MD Basic Metabolic Panel w/ Ref kervin to MGon 10-10-2019 Anion gap [Moles/Vol] 10 mmol/L 9 - 17 mmol/L [place] Bun/Cre Ratio NOT REPORTED [place] Calcium [Mass/Vol] 9.0 mg/dL 8.6 - 10. 4 mg/dL [place] Chloride [Moles/Vol] 97 mmol/L Low 98 - 10 7 mmol/L [place] CO2 [Moles/Vol] 25 mmol/L 20 - 31 mmol/L [place] Creatinine [Mass/Vol] 0.5 mg/dL 0.5 - 0.9 mg/dL [place] GFR >60 >60 mL/min [place] GFR Non- >60 >60 mL/min [place] GFR/1.73 sq M predicted among non-blacks MDRD (S/P/Bld) [Vol rate/Area] [place] Comment on above: Average GFR for 70 o r more years old: 75 mL/min/1.73sq m Chronic Kidney Disease: <60 mL/min/1.73sq m Kidney failure: <15 mL/min/1.73sq m eGFR calculated using average adult body mass. Additional eGFR calculator available at: http://www.Bookmycab.opendorse/multiple_crcl_2012.htm GFR/1.73 sq M predicted among non-blacks MDRD (S/P/Bld) [Vol rate/Area] NOT REPORTED [place] Glucose [Mass/Vol] 123 mg/dL High 70 - 99 mg/dL [place] Interpretation and review of laboratory results Abnormal [place] Potassium [Moles/Vol] 3.5 mmol/L Low 3.7 - 5.3 mmol/L [place] Sodium [Moles/Vol] 132 mmol/L Low 135 - 144 mmol/L [place] Urea nitrogen [Mass/Vol] 14 mg/dL 8 - 23 mg/dL [place] C-REACTIVE PROTEINon 020 CRP [Mass/Vol] 6.3 mg/L High 0 - 5 mg/L [place] Interpretation and review of laboratory results Abnormal [place] C-Reactive Proteinon 020 CRP [Mass/Vol] 6.3 mg/L High 0.0-5.0 [facility] Comment on above: Performed By: #### C DP, CP, LIP, TROPI, LIPRF, GLYHGB #### [address] [place], [place] [phone] Blueprint Cutter: Brandon Anaya MD CBC auto differentialon 09-24 Basophils (Bld) [#/Vol] 0.06 10*3/uL [place] Basophils/100 WBC (Bld) 1 % 0 - 2 % [place] Differential Type NOT REPORTED [place] Eosinophils (Bld) [#/Vol] 0.07 10*3/uL [place] Eosinophils/100 WBC (Bld) 1 % 1 - 4 % [place] Erythrocyte distribution width (RBC) [Ratio] 14.5 % High 11.8 - 14.4 % [place] Hematocrit (Bld) [Volume fraction] 42.7 % 36.3 - 47.1 % [place] Hemoglobin (Bld) [Mass/Vol] 13.5 g/dL 11.9 - 15.1 g/dL [place] Immature granulocytes (Bld) [#/Vol] 0.05 10*3/uL [place] Immature granulocytes (Bld) [#/Vol] 1 % High 0 [place] Interpretation and review of laboratory results Abnormal [place] Lymphocytes (Bld) [#/Vol] 1.05 10*3/uL Low [place] Lymphocytes/100 WBC (Bld) 14 % Low 24 - 43 % [place] MCH (RBC) [Entitic mass] 29.8 pg 25.2 - 33.5 pg [place] MCHC (RBC) [Mass/Vol] 31.6 g/dL 28.4 - 34.8 g/dL [place] MCV (RBC) [Entitic vol] 94.3 fL 82.6 - 102.9 fL [place] Monocytes (Bld) [#/Vol] 0.65 10*3/uL [place] Monocytes/100 WBC (Bld) 9 % 3 - 12 % [place] Platelet mean volume (Bld) [Entitic vol] 10.9 fL 8.1 - 13.5 fL [place] Platelets (Bld) [#/Vol] 170 10*3/uL [place] Platelets (Bld) [#/Vol] NOT REPORTED [place] RBC (Bld) [#/Vol] 4.53 10*6/uL 3.95 - 5.1 1 m/uL [place] RBC morphology finding Nom (Bld) ANISOCYTOSIS PRESENT [place] Segmented neutrophils/100 WBC (Bld) 74 % High 36 - 65 % [place] Segs Absolute 5.55 [place] WBC (Bld) [#/Vol] 0.0 10*3/uL 0.0 per 10 0 WBC [place] WBC (Bld) [#/Vol] 7.4 10*3/uL [place] WBC Morphology NOT REPORTED [place] CBC with Diffon 10-10-2019 Abs. Basophil 0.06 k/uL Normal 0.00-0.20 [facility] Comment on above: Performed By: #### C DP, CP, LIP, TROPI, LIPRF, GLYHGB #### [employer] [facility] [address] [place] [address] Blueprint Cutter: Brandon Anaya MD Abs.Imm.Granulocyte 0.05 k/uL Normal 0.00-0.30 [facility] Comment on above: Performed By: #### C DP, CP, LIP, TROPI, LIPRF, GLYHGB #### [place] [address] Blueprint Cutter: Brandon Anaya MD Abs.Neutrophil (Seg) 5.55 k/uL Normal 1.50-8.10 [facility] Comment on above: Performed By: #### C DP, CP, LIP, TROPI, LIPRF, GLYHGB #### [place] [address] Blueprint Cutter: Brandon Anaya MD Basophils/100 WBC (Bld) 1 % Normal 0-2 [facility] Comment on above: Performed By: #### C DP, CP, LIP, TROPI, LIPRF, GLYHGB #### [place] [address] [employer]print Cutter: Brandon Anaya MD Eosinophils (Bld) [#/Vol] 0.07 10*3/uL Normal 0.00-0.44 [facility] Comment on above: Performed By: #### C DP, CP, LIP, TROPI, LIPRF, GLYHGB #### [place] [address] [employer]print Cutter: Brandon Anaya MD Eosinophils/100 WBC (Bld) 1 % Normal 1-4 [facility] Comment on above: Performed By: #### C DP, CP, LIP, TROPI, LIPRF, GLYHGB #### [place] [address] Blueprint Cutter: Brandon Anaya MD Erythrocyte distribution width (RBC) [Ratio] 14.5 % High 11.8-14.4 [facility] Comment on above: Performed By: #### C DP, CP, LIP, TROPI, LIPRF, GLYHGB #### [address] [address] [employer]print Cutter: Brandon Anaya MD Hematocrit (Bld) [Volume fraction] 42.7 % Normal 36.3-47.1 [facility] Comment on above: Performed By: #### C DP, CP, LIP, TROPI, LIPRF, GLYHGB #### [address] [address] [employer]print Cutter: Brandon Anaya MD Hemoglobin (Bld) [Mass/Vol] 13.5 g/dL Normal 11.9-15.1 [facility] Comment on above: Performed By: #### C DP, CP, LIP, TROPI, LIPRF, GLYHGB #### [address] [address] [employer]print Cutter: Brandon Anaya MD Immature granulocytes (Bld) [#/Vol] 1 % High 0 [facility] Comment on above: Performed By: #### C DP, CP, LIP, TROPI, LIPRF, GLYHGB #### [address] [address] [employer]print Cutter: Brandon Anaya MD Lymphocytes (Bld) [#/Vol] 1.05 10*3/uL Low 1.10-3.70 [facility] Comment on above: Performed By: #### C DP, CP, LIP, TROPI, LIPRF, GLYHGB #### [address] [address] Blueprint Cutter: Brandon Anaya MD Lymphocytes/100 WBC (Bld) 14 % Low 24-43 [facility] Comment on above: Performed By: #### C DP, CP, LIP, TROPI, LIPRF, GLYHGB #### [facility] [address] [place] [address] Blueprint Cutter: Brandon Anaya MD MCH (RBC) [Entitic mass] 29.8 pg Normal 25.2-33.5 [facility] Comment on above: Performed By: #### C DP, CP, LIP, TROPI, LIPRF, GLYHGB #### [address] [address] [employer]print Cutter: Brandon Anaya MD MCHC (RBC) [Mass/Vol] 31.6 g/dL Normal 28.4-34.8 [facility] Comment on above: Performed By: #### C DP, CP, LIP, TROPI, LIPRF, GLYHGB #### [address] [address] [employer]print Cutter: Brandon Anaya MD MCV (RBC) [Entitic vol] 94.3 fL Normal 82.6-102.9 [facility] Comment on above: Performed By: #### C DP, CP, LIP, TROPI, LIPRF, GLYHGB #### [place] [address] [employer]print Cutter: Brandon Anaya MD Monocytes (Bld) [#/Vol] 0.65 10*3/uL Normal 0.10-1.20 [facility] Comment on above: Performed By: #### C DP, CP, LIP, TROPI, LIPRF, GLYHGB #### [address] [address] [employer]print Cutter: Brandon Anaya MD Monocytes/100 WBC (Bld) 9 % Normal 3-12 [facility] Comment on above: Performed By: #### C DP, CP, LIP, TROPI, LIPRF, GLYHGB #### [address] [address] [employer]print Cutter: Brandon Anaya MD Neutrophil (Seg) 74 % High 36-65 [facility] Comment on above: Performed By: #### C DP, CP, LIP, TROPI, LIPRF, GLYHGB #### [address] [address] [employer]print Cutter: Brandon Anaya MD NRBC Automated 0.0 per 100 WBC Normal 0.0 [facility] Comment on above: Performed By: #### C DP, CP, LIP, TROPI, LIPRF, GLYHGB #### [address] [address] [employer]print Cutter: Brandon Anaya MD Platelet mean volume (Bld) [Entitic vol] 10.9 fL Normal 8.1-13.5 [facility] Comment on above: Performed By: #### C DP, CP, LIP, TROPI, LIPRF, GLYHGB #### [address] [address] [employer]print Cutter: Brandon Anaya MD Platelets (Bld) [#/Vol] 170 10*3/uL Normal 138-453 [facility] Comment on above: Performed By: #### C DP, CP, LIP, TROPI, LIPRF, GLYHGB #### [address] [address] [employer]print Cutter: Brandon Anaya MD RBC (Bld) [#/Vol] 4.53 10*6/uL Normal 3.95-5.11 [facility] Comment on above: Performed By: #### C DP, CP, LIP, TROPI, LIPRF, GLYHGB #### [address] [address] [employer]print Cutter: Brandon Anaya MD RBC morphology finding Nom (Bld) ANISOCYTOSIS PRESENT Normal [facility] Comment on above: Performed By: #### C DP, CP, LIP, TROPI, LIPRF, GLYHGB #### [address] [address] [employer]print Cutter: Brandon Anaya MD WBC (Bld) [#/Vol] 7.4 10*3/uL Normal 3.5-11.3 [facility] Comment on above: Performed By: #### C DP, CP, LIP, TROPI, LIPRF, GLYHGB #### [address] [address] [employer] Cutter: Brandon Anaya MD Auto Diff Performed NOT REPORTED Normal [facility] Comment on above: Performed By: #### C DP, CP, LIP, TROPI, LIPRF, GLYHGB #### [address] [address] [employer] Cutter: Brandon Anaya MD Platelets (Bld) [#/Vol] NOT REPORTED Normal [facility] Comment on above: Performed By: #### C DP, CP, LIP, TROPI, LIPRF, GLYHGB #### [address] [address] [employer]print Cutter: Brandon Anaya MD WBC Morphology NOT REPORTED Normal [facility] Comment on above: Performed By: #### C DP, CP, LIP, TROPI, LIPRF, GLYHGB #### [address] [address] [employer]print Cutter: Brandon Anaya MD CT HEAD WO CONTRASTon [...] [place] Browning MD 10/10/19 Final result Normal [facility] 1. No acute intracra nial abnormality. 2. Mild chronic white matter microvascular ischemic changes. [place] EXAMINATION: CT OF T HE HEAD [...] of the visualized skull or soft tissues. [place] Pri[place], pn Incoming Radiant Results From Chat& ([employer]And)/[employer] - 10/10/2019 5:31 PM EDT EXAMINATION: CT [...] Mild chronic white matter microvascular ischemic changes. [place] CTA HEAD NECK W CONTRASTon 0 [...] Initial FINDINGS: CTA NECK: AORTIC ARCH/ARCH VESSELS: Qral-wv-gnocfsex atherosclerotic plaque at the arch arch and [...] Naga Browning MD 10/10/19 Final result Normal [facility] EXAMINATION: CTA OF THE HEAD AND [...] Initial FINDINGS: CTA NECK: AORTIC ARCH/ARCH VESSELS: Oisc-an-svtbworj atherosclerotic plaque at the arch arch and [...] fluid collection. The salmeron-white differentiation is maintained. [facility] [place] 1. No acute arterial abnormality or hemodynamically significant arterial stenosis in the head or neck. 2. No intracranial aneurysm. [place] Pri[place], Mhpn Incoming Radiant Results From Chat& (ChatAnd)/[employer] - 10/10/2019 5:36 PM EDT EXAMINATION: CTA [...] Initial FINDINGS: CTA NECK: AORTIC ARCH/ARCH VESSELS: Wglu-xw-hocvfdae atherosclerotic plaque at the arch arch and [...] head or neck. 2. No intracranial aneurysm. [place] Hemoglobin A1Con 10-10-2019 HbA1c (Bld) [Mass fraction] 111 mg/dL Normal [facility] Comment on above: Result Comment: The ADA and AACC recommend providing the estimated average glucose result to permit better patient understanding of their HBA1c result. Performed By: #### C DP, CP, LIP, TROPI, LIPRF, GLYHGB #### [facility] [place], [place] [id number] Blueprint Cutter: Brandon Anaya MD HbA1c (Bld) [Mass fraction] 5.5 % Normal 4.0-6.0 [facility] Comment on above: Performed By: #### C DP, CP, LIP, TROPI, LIPRF, GLYHGB #### [facility] [address] [place] [id number] Blueprint Cutter: Brandon Anaya MD Glucose [Mass/Vol] 111 mg/dL [place] Comment on above: The ADA and AACC rec ommend providing the estimated average glucose result to permit better patient understanding of their HBA1c result. HbA1c (Bld) [Mass fraction] 5.5 % 4 - 6 % [place] LACTIC ACID, WHOLE BLOODon 0 10-10-2019 Lactic Acid, Whole Blood 1.0 mmol/L 0.7 - 2.1 mmol/L [place] Lactic Acid,Whole Blon 10-09 Lactic Acid,Whole Bl 1.0 mmol/L Normal 0.7-2.1 [facility] Comment on above: Performed By: #### C DP, CP, LIP, TROPI, LIPRF, GLYHGB #### [facility] [address] [place], [place] [id number] Blueprint Cutter: Brandon Anaya MD Magnesiumon 10-10-2019 Magnesium [Mass/Vol] 2.1 mg/dL Normal 1.6-2.6 [facility] Comment on above: Performed By: #### C DP, CP, LIP, TROPI, LIPRF, GLYHGB #### [facility] [place] [address] Blueprint Cutter: Brandon Anaya MD Magnesium [Mass/Vol] 2.1 mg/dL 1.6 - 2 .6 mg/dL [facility] [place] Otheron 10-10-2019 1. Subtle sclerosis subjacent to the L2 and L3 superior endplates is age-indeterminate and could represent trabecular condensation associated with acute or subacute endplate fractures. MRI of the lumbar spine is recommended for further evaluation. 2. No acute osseous abnormality of the sacrum or coccyx. 3. Osteopenia. [place] Pri[place], [place] Incoming Radiant Results From [employer] ([employer]And)/[employer] - 10/10/2019 8:19 PM EDT EXAMINATION: THREE [...] of the sacrum or coccyx. 3. Osteopenia. [place] EXAMINATION: THREE X RAY VIEWS OF [...] the urinary bladder. Atherosclerotic calcifications are present. [place] POC Glucose Fingerstickon Glucose [Mass/Vol] 159 mg/dL High 65 - 105 mg/dL [place] Interpretation and review of laboratory results Abnormal [place] Glucose [Mass/Vol] 186 mg/dL High 65 - 105 mg/dL [place] Interpretation and review of laboratory results Abnormal [place] Glucose [Mass/Vol] 135 mg/dL High 65 - 105 mg/dL [place] Interpretation and review of laboratory results Abnormal [place] Procalcitoninon 10-10-2019 Procalcitonin 0.15 ng/mL High <0.09 [facility] Comment on above: Result Comment: Suspected [...] entered into the Change in Procalcitonin Calculator (www.vgdeup-dfn-ivvuecgupi.com) to determine the patient's Mortality Risk Prognosis In healthy neonates, plasma Procalcitonin (PCT) concentrations increase gradually after , reaching peak values at about 24 hours of age then decrease to normal values below 0.5 ng/mL by 48-72 hours of age. Performed By: #### C DP, CP, LIP, TROPI, LIPRF, GLYHGB #### [facility] [place] [address] Blueprint Cutter: Brandon Anaya MD Interpretation and review of laboratory results Abnormal [place] Procalcitonin 0.15 ng/mL High <0.09 [place] Comment on above: Suspected Sepsis: <0.50 [...] entered into the Change in Procalcitonin Calculator (www.nqkere-krm-ekglxvbihj.com) to determine the patient's Mortality Risk Prognosis In healthy neonates, plasma Procalcitonin (PCT) concentrations increase gradually after , reaching peak values at about 24 hours of age then decrease to normal values below 0.5 ng/mL by 48-72 hours of age. Sedimentation Rateon 020 Sedimentation Rate 8 mm Normal 0-30 [facility] Comment on above: Performed By: #### C DP, CP, LIP, TROPI, LIPRF, GLYHGB #### [facility] [place] [address] Blueprint Cutter: Brandon Anaya MD Sed Rate 8 mm 0 - 30 mm [place] TSH w/reflex to FT4on 2019 TSH Qn 1.05 m[IU]/L Normal 0.30-5.00 [facility] Comment on above: Performed By: #### C DP, CP, LIP, TROPI, LIPRF, GLYHGB #### [facility] [address] [place] [address] Blueprint Cutter: Brandon Anaya MD TSH with Reflexon 10-10-2019 TSH Qn 1.05 m[IU]/L [facility] [place], [place] XR LUMBAR SPINE (2-3 [...] Naga Browning MD 10/10/19 Final result Normal [facility] XR SACRUM COCCYX (MIN 2 VIEW [...] Naga Browning MD 10/10/19 Final result Normal [facility] Beta Hydroxybutyrateon 10-08 Beta Hydroxybutyrate 0.09 mmol/L Normal 0.02-0.27 [facility] Comment on above: Performed By: #### T OSMAR #### [facility] [address] [place] [phone] Blueprint Cutter: Brandon Anaya MD Beta-Hydroxybutyrateon 10-08 Beta-Hydroxybutyrate 0.09 mmol/L 0.02 - 0.27 mmol/L [place] CBC WITH AUTO DIFFERENTIALon 10-09-2019 Basophils (Bld) [#/Vol] 0.03 10*3/uL [place] Basophils/100 WBC (Bld) 0 % 0 - 2 % [place] Differential Type NOT REPORTED [place] Eosinophils (Bld) [#/Vol] 10*3/uL [place] Eosinophils/100 WBC (Bld) 0 % Low 1 - 4 % [place] Erythrocyte distribution width (RBC) [Ratio] 14.2 % 11.8 - 14.4 % [place] Hematocrit (Bld) [Volume fraction] 44.6 % 36.3 - 47.1 % [place] Hemoglobin (Bld) [Mass/Vol] 14.2 g/dL 11.9 - 15.1 g/dL [place] Immature granulocytes (Bld) [#/Vol] 1 % High 0 [place] Immature granulocytes (Bld) [#/Vol] 0.06 10*3/uL [place] Interpretation and review of laboratory results Abnormal [place] Lymphocytes (Bld) [#/Vol] 0.97 10*3/uL Low [place] Lymphocytes/100 WBC (Bld) 13 % Low 24 - 43 % [place] MCH (RBC) [Entitic mass] 29.7 pg 25.2 - 33.5 pg [place] MCHC (RBC) [Mass/Vol] 31.8 g/dL 28.4 - 34.8 g/dL [place] MCV (RBC) [Entitic vol] 93.3 fL 82.6 - 102.9 fL [place] Monocytes (Bld) [#/Vol] 0.52 10*3/uL [place] Monocytes/100 WBC (Bld) 7 % 3 - 12 % [place] Platelet mean volume (Bld) [Entitic vol] 10.9 fL 8.1 - 13.5 fL [place] Platelets (Bld) [#/Vol] NOT REPORTED [place] Platelets (Bld) [#/Vol] 202 10*3/uL [place] RBC (Bld) [#/Vol] 4.78 10*6/uL 3.95 - 5.1 1 m/uL [place] RBC morphology finding Nom (Bld) NOT REPORTED [place] Segmented neutrophils/100 WBC (Bld) 79 % High 36 - 65 % [place] Segs Absolute 6.10 [place] WBC (Bld) [#/Vol] 0.0 10*3/uL 0.0 per 10 0 WBC [place] WBC (Bld) [#/Vol] 7.7 10*3/uL [place] WBC Morphology NOT REPORTED [place] CBC with Diffon 10-09-2019 Abs. Basophil 0.03 k/uL Normal 0.00-0.20 [facility] Comment on above: Performed By: #### C DP, CP, LIP, TROPI, LIPRF, GLYHGB #### [address] [address] Blueprint Cutter: Brandon Anaya MD Abs.Imm.Granulocyte 0.06 k/uL Normal 0.00-0.30 [facility] Comment on above: Performed By: #### C DP, CP, LIP, TROPI, LIPRF, GLYHGB #### [address] [address] Blueprint Cutter: Brandon Anaya MD Abs.Neutrophil (Seg) 6.10 k/uL Normal 1.50-8.10 [facility] Comment on above: Performed By: #### C DP, CP, LIP, TROPI, LIPRF, GLYHGB #### [address] [address] Blueprint Cutter: Brandon Anaya MD Basophils/100 WBC (Bld) 0 % Normal 0-2 [facility] Comment on above: Performed By: #### C DP, CP, LIP, TROPI, LIPRF, GLYHGB #### [address] [address] Blueprint Cutter: Brandon Anaya MD Eosinophils (Bld) [#/Vol] 10*3/uL Normal 0.00-0.44 [facility] Comment on above: Performed By: #### C DP, CP, LIP, TROPI, LIPRF, GLYHGB #### [address] [address] Blueprint Cutter: Brandon Anaya MD Eosinophils/100 WBC (Bld) 0 % Low 1-4 [facility] Comment on above: Performed By: #### C DP, CP, LIP, TROPI, LIPRF, GLYHGB #### [address] [address] Blueprint Cutter: Brandon Anaya MD Erythrocyte distribution width (RBC) [Ratio] 14.2 % Normal 11.8-14.4 [facility] Comment on above: Performed By: #### C DP, CP, LIP, TROPI, LIPRF, GLYHGB #### [address] [address] Blueprint Cutter: Brandon Anaya MD Hematocrit (Bld) [Volume fraction] 44.6 % Normal 36.3-47.1 [facility] Comment on above: Performed By: #### C DP, CP, LIP, TROPI, LIPRF, GLYHGB #### [address] [address] Blueprint Cutter: Brandon Anaya MD Hemoglobin (Bld) [Mass/Vol] 14.2 g/dL Normal 11.9-15.1 [facility] Comment on above: Performed By: #### C DP, CP, LIP, TROPI, LIPRF, GLYHGB #### [address] [address] Blueprint Cutter: Brandon Anaya MD Immature granulocytes (Bld) [#/Vol] 1 % High 0 [facility] Comment on above: Performed By: #### C DP, CP, LIP, TROPI, LIPRF, GLYHGB #### [address] [address] Blueprint Cutter: Brandon Anaya MD Lymphocytes (Bld) [#/Vol] 0.97 10*3/uL Low 1.10-3.70 [facility] Comment on above: Performed By: #### C DP, CP, LIP, TROPI, LIPRF, GLYHGB #### [facility] [address] [place] [address] Blueprint Cutter: Brandon Anaya MD Lymphocytes/100 WBC (Bld) 13 % Low 24-43 [facility] Comment on above: Performed By: #### C DP, CP, LIP, TROPI, LIPRF, GLYHGB #### [address] [address] Blueprint Cutter: Brandon Anaya MD MCH (RBC) [Entitic mass] 29.7 pg Normal 25.2-33.5 [facility] Comment on above: Performed By: #### C DP, CP, LIP, TROPI, LIPRF, GLYHGB #### [address] [address] Blueprint Cutter: Brandon Anaya MD MCHC (RBC) [Mass/Vol] 31.8 g/dL Normal 28.4-34.8 [facility] Comment on above: Performed By: #### C DP, CP, LIP, TROPI, LIPRF, GLYHGB #### [address] [address] Blueprint Cutter: Brandon Anaya MD MCV (RBC) [Entitic vol] 93.3 fL Normal 82.6-102.9 [facility] Comment on above: Performed By: #### C DP, CP, LIP, TROPI, LIPRF, GLYHGB #### [place] [address] Blueprint Cutter: Brandon Anaya MD Monocytes (Bld) [#/Vol] 0.52 10*3/uL Normal 0.10-1.20 [facility] Comment on above: Performed By: #### C DP, CP, LIP, TROPI, LIPRF, GLYHGB #### [address] [address] Blueprint Cutter: Brandon Anaya MD Monocytes/100 WBC (Bld) 7 % Normal 3-12 [facility] Comment on above: Performed By: #### C DP, CP, LIP, TROPI, LIPRF, GLYHGB #### [address] [address] Blueprint Cutter: Brandon Anaya MD Neutrophil (Seg) 79 % High 36-65 [facility] Comment on above: Performed By: #### C DP, CP, LIP, TROPI, LIPRF, GLYHGB #### [address] [address] Blueprint Cutter: Brandon Anaya MD NRBC Automated 0.0 per 100 WBC Normal 0.0 [facility] Comment on above: Performed By: #### C DP, CP, LIP, TROPI, LIPRF, GLYHGB #### [address] [address] Blueprint Cutter: Brandon Anaya MD Platelet mean volume (Bld) [Entitic vol] 10.9 fL Normal 8.1-13.5 [facility] Comment on above: Performed By: #### C DP, CP, LIP, TROPI, LIPRF, GLYHGB #### [address] [address] Blueprint Cutter: Brandon Anaya MD Platelets (Bld) [#/Vol] 202 10*3/uL Normal 138-453 [facility] Comment on above: Performed By: #### C DP, CP, LIP, TROPI, LIPRF, GLYHGB #### [address] [address] Blueprint Cutter: Brandon Anaya MD RBC (Bld) [#/Vol] 4.78 10*6/uL Normal 3.95-5.11 [facility] Comment on above: Performed By: #### C DP, CP, LIP, TROPI, LIPRF, GLYHGB #### [address] [address] Blueprint Cutter: Brandon Anaya MD WBC (Bld) [#/Vol] 7.7 10*3/uL Normal 3.5-11.3 [facility] Comment on above: Performed By: #### C DP, CP, LIP, TROPI, LIPRF, GLYHGB #### [address] [address] Blueprint Cutter: Brandon Anaya MD Auto Diff Performed NOT REPORTED Normal [facility] Comment on above: Performed By: #### C DP, CP, LIP, TROPI, LIPRF, GLYHGB #### [address] [address] Blueprint Cutter: Brandon Anaya MD Platelets (Bld) [#/Vol] NOT REPORTED Normal [facility] Comment on above: Performed By: #### C DP, CP, LIP, TROPI, LIPRF, GLYHGB #### [address] [address] Blueprint Cutter: Brandon Anaya MD RBC morphology finding Nom (Bld) NOT REPORTED Normal [facility] Comment on above: Performed By: #### C DP, CP, LIP, TROPI, LIPRF, GLYHGB #### [address] [address] Blueprint Cutter: Brandon Anaya MD WBC Morphology NOT REPORTED Normal [facility] Comment on above: Performed By: #### C DP, CP, LIP, TROPI, LIPRF, GLYHGB #### [address] [address] Blueprint Cutter: Brandon Anaya MD COVID-19, PCRon 10-09-2019 SARS-CoV-2 [place] SARS-CoV-2, PCR [place] SARS-CoV-2, Rapid Not Detected Not Detected [place] Comment on above: Rapid NAAT: The [...] management decisions. Fact sheet for Healthcare Providers: https://www.fda.gov/media/559452/download Fact sheet for Patients: https://www.fda.gov/media/482757/download Methodology: Isothermal Nucleic Acid Amplification Source .NASOPHARYNGEAL SWAB [place] CT CHEST PULMONARY EMBOLISM W CONTRASTon [...] Wendy Darby MD 10/09/19 Final result Normal [facility] No central or segmen rhett pulmonary embolus. No acute pulmonary process. Emphysema. [place] EXAMINATION: CTA OF THE CHEST 10/09/2019 [...] focal consolidation. Bones: Thoracic spine degenerative changes. [facility] [place], [place]hpn Incoming Radiant Results From [employer] ([employer]And[employer] - 10/09/2019 8:31 AM EDT EXAMINATION: CTA [...] pulmonary embolus. No acute pulmonary process. Emphysema. [employer] Comp Metabolic Profon 2019 (cont.) Normal [facility] Comment on above: Result Comment: Aver age GFR for 70 or more years old: 75 mL/min/1.73sq m Chronic Kidney Disease: <60 mL/min/1.73sq m Kidney failure: <15 mL/min/1.73sq m eGFR calculated using average adult body mass. Additional eGFR calculator available at: http://www.[employer]/multiple_crcl_2011.htm Performed By: #### C DP, CP, LIP, TROPI, LIPRF, GLYHGB #### [address] [address] Blueprint Cutter: Brandon Anaya MD Albumin [Mass/Vol] 4.1 g/dL Normal 3.5-5.2 [facility] Comment on above: Performed By: #### C DP, CP, LIP, TROPI, LIPRF, GLYHGB #### [address] [address] Blueprint Cutter: Brandon Anaya MD Albumin/Globulin [Mass ratio] 1.6 {ratio} Normal 1.0-2.5 [facility] Comment on above: Performed By: #### C DP, CP, LIP, TROPI, LIPRF, GLYHGB #### [address] [address] Blueprint Cutter: Brandon Anaya MD Alkaline Phos 90 U/L Normal 35-104 [facility] Comment on above: Performed By: #### C DP, CP, LIP, TROPI, LIPRF, GLYHGB #### [address] [address] Blueprint Cutter: Brandon Anaya MD ALT [Catalytic activity/Vol] 15 U/L Normal 5-33 [facility] Comment on above: Performed By: #### C DP, CP, LIP, TROPI, LIPRF, GLYHGB #### [address] [address] Blueprint Cutter: Brandon Anaya MD Anion gap [Moles/Vol] 18 mmol/L High 9-17 [facility] Comment on above: Performed By: #### C DP, CP, LIP, TROPI, LIPRF, GLYHGB #### [facility] [address] [place] [address] Blueprint Cutter: Brandon Anaya MD AST [Catalytic activity/Vol] 11 U/L Normal <32 [facility] Comment on above: Performed By: #### C DP, CP, LIP, TROPI, LIPRF, GLYHGB #### [address] [address] Blueprint Cutter: Brandon Anaya MD Bilirubin Ql (U) 0.39 mg/dL Normal 0.3-1.2 [facility] Comment on above: Performed By: #### C DP, CP, LIP, TROPI, LIPRF, GLYHGB #### [address] [address] Blueprint Cutter: Brandon Anaya MD Calcium [Mass/Vol] 9.5 mg/dL Normal 8.6-10.4 [facility] Comment on above: Performed By: #### C DP, CP, LIP, TROPI, LIPRF, GLYHGB #### [facility] [address] [place] [address] Blueprint Cutter: Brandon Anaya MD Chloride [Moles/Vol] 99 mmol/L Normal 98-107 [facility] Comment on above: Performed By: #### C DP, CP, LIP, TROPI, LIPRF, GLYHGB #### [facility] [address] [place] [address] Blueprint Cutter: Brandon Anaya MD CO2 [Moles/Vol] 24 mmol/L Normal 20-31 [facility] Comment on above: Performed By: #### C DP, CP, LIP, TROPI, LIPRF, GLYHGB #### [facility] [address] [place] [address] Blueprint Cutter: Brandon Anaya MD Creatinine [Mass/Vol] 0.63 mg/dL Normal 0.50-0.90 [facility] Comment on above: Performed By: #### C DP, CP, LIP, TROPI, LIPRF, GLYHGB #### [facility] [address] [place] [address] Blueprint Cutter: Brandon Anaya MD GFR, Amer >60 Normal >60 [facility] Comment on above: Performed By: #### C DP, CP, LIP, TROPI, LIPRF, GLYHGB #### [facility] [address] [place] [address] Blueprint Cutter: Brandon Anaya MD GFR,non Amer >60 Normal >60 [facility] Comment on above: Performed By: #### C DP, CP, LIP, TROPI, LIPRF, GLYHGB #### [facility] [address] [place] [address] Blueprint Cutter: Brandon Anaya MD Glucose [Mass/Vol] 208 mg/dL High 70-99 [facility] Comment on above: Performed By: #### C DP, CP, LIP, TROPI, LIPRF, GLYHGB #### [facility] [address] [place] [address] Blueprint Cutter: Brandon Anaya MD Potassium [Moles/Vol] 3.9 mmol/L Normal 3.7-5.3 [facility] Comment on above: Performed By: #### C DP, CP, LIP, TROPI, LIPRF, GLYHGB #### [facility] [address] [place] [address] Blueprint Cutter: Brandon Anaya MD Protein [Mass/Vol] 6.6 g/dL Normal 6.4-8.3 [facility] Comment on above: Performed By: #### C DP, CP, LIP, TROPI, LIPRF, GLYHGB #### [facility] [address] [place] [address] Blueprint Cutter: Brandon Anaya MD Sodium [Moles/Vol] 141 mmol/L Normal 135-144 [facility] Comment on above: Performed By: #### C DP, CP, LIP, TROPI, LIPRF, GLYHGB #### [facility] [address] [place] [address] Blueprint Cutter: Brandon Anaya MD Urea nitrogen [Mass/Vol] 17 mg/dL Normal 8- [facility] Comment on above: Performed By: #### C DP, CP, LIP, TROPI, LIPRF, GLYHGB #### [facility] [address] [place] [address] Blueprint Cutter: Brandon Anaya MD BUN/CRE Ratio NOT REPORTED Normal - [facility] Comment on above: Performed By: #### C DP, CP, LIP, TROPI, LIPRF, GLYHGB #### [facility] [address] [place] [address] Blueprint Cutter: Brandon Anaya MD Staging: NOT REPORTED Normal [facility] Comment on above: Performed By: #### C DP, CP, LIP, TROPI, LIPRF, GLYHGB #### [facility] [address] [place] [address] Blueprint Cutter: Brandon Anaya MD Comprehensive Metabolic Pane [facility] 10-09-2019 Albumin [Mass/Vol] 4.1 g/dL 3.5 - 5.2 g/dL [place] Albumin/Globulin [Mass ratio] 1.6 {ratio} [place] ALP [Catalytic activity/Vol] 90 U/L 35 - 104 U/L [place] ALT [Catalytic activity/Vol] 15 U/L 5 - 33 U/L [place] Anion gap [Moles/Vol] 18 mmol/L High 9 - 17 mmol/L [place] AST [Catalytic activity/Vol] 11 U/L <32 [place] Bilirubin Ql (U) 0.39 mg/dL 0.3 - 1.2 mg/dL [place] Bun/Cre Ratio NOT REPORTED [place] Calcium [Mass/Vol] 9.5 mg/dL 8.6 - 10. 4 mg/dL [place] Chloride [Moles/Vol] 99 mmol/L 98 - 10 7 mmol/L [place] CO2 [Moles/Vol] 24 mmol/L 20 - 31 mmol/L [place] Creatinine [Mass/Vol] 0.63 mg/dL 0.5 - 0.9 mg/dL [place] GFR >60 >60 mL/min [place] GFR Non- >60 >60 mL/min [place] GFR/1.73 sq M predicted among non-blacks MDRD (S/P/Bld) [Vol rate/Area] [place] Comment on above: Average GFR for 70 o r more years old: 75 mL/min/1.73sq m Chronic Kidney Disease: <60 mL/min/1.73sq m Kidney failure: <15 mL/min/1.73sq m eGFR calculated using average adult body mass. Additional eGFR calculator available at: http://www.[employer]ano/multiple_crcl_2012.htm GFR/1.73 sq M predicted among non-blacks MDRD (S/P/Bld) [Vol rate/Area] NOT REPORTED [place] Glucose [Mass/Vol] 208 mg/dL High 70 - 99 mg/dL [place] Interpretation and review of laboratory results Abnormal [place] Potassium [Moles/Vol] 3.9 mmol/L 3.7 - 5.3 mmol/L [place] Protein [Mass/Vol] 6.6 g/dL 6.4 - 8.3 g/dL [place] Sodium [Moles/Vol] 141 mmol/L 135 - 144 mmol/L [place] Urea nitrogen [Mass/Vol] 17 mg/dL 8 - 23 mg/dL [place] EKG 12 Leadon 10-09-2019 Atrial Rate 70 BPM [place] P Lampe 54 degrees [place] P-R Interval 136 ms [place] Q-T Interval [address] [facility], [place] QRS Duration 80 ms [place] QTc Calculation (Bazett) 466 ms [place] R Lampe -[address] [facility], [place] T Lampe [address] [facility], [place] Ventricular Rate 70 BPM [place] Pri[place], [place] Incoming E kg Results From [facility] [place] - 10/09/2019 3:25 PM EDT Normal sinus rhythm Possible Left atrial enlargement Nonspecific ST abnormality Abnormal ECG No previous ECGs available [place] Normal sinus rhythm Possible Left atrial enlargement Nonspecific ST abnormality Abnormal ECG No previous ECGs available [place] LIPASEon 10-09-2019 Lipase [Catalytic activity/Vol] 48 U/L 13 - 60 U/L [place] Lipaseon 10-09-2019 Lipase [Catalytic activity/Vol] 48 U/L Normal 13-60 [facility] Comment on above: Performed By: #### C DP, CP, LIP, TROPI, LIPRF, GLYHGB #### [facility] [address] [place] [address] Blueprint Cutter: Brandon Anaya MD Lipid Prof, Fastingon 2019 Cholesterol [Mass/Vol] 229 mg/dL High <200 [facility] Comment on above: Result Comment: Cholesterol Guidelines: <200 Desirable 200-240 Borderline >240 Undesirable Performed By: #### C DP, CP, LIP, TROPI, LIPRF, GLYHGB #### [facility] [address] [place] [address] [employer]print Cutter: Brandon Anaya MD Cholesterol in HDL [Mass/Vol] 50 mg/dL Normal >40 [facility] Comment on above: Result Comment: HDL Guidelines: <40 Undesirable 40-59 Borderline >59 Desirable Performed By: #### C DP, CP, LIP, TROPI, LIPRF, GLYHGB #### [facility] Intelligence [address] [place] [address] [id number] Blueprint Cutter: Brandon Anaya MD Cholesterol in LDL [Mass/Vol] 143 mg/dL High 0-130 [facility] Comment on above: Result Comment: LDL Guidelines: <100 Desirable 100-129 Near to/above Desirable 130-159 Borderline >159 Undesirable Direct (measured) LDL and calculated LDL are not interchangeable tests. Performed By: #### C DP, CP, LIP, TROPI, LIPRF, GLYHGB #### [facility] [address] [place] [address] [phone] Blueprint Cutter: Brandon Anaya MD Cholesterol.total/Chol esterol in HDL [Mass ratio] 4.6 {ratio} Normal <5 [facility] Comment on above: Performed By: #### C DP, CP, LIP, TROPI, LIPRF, GLYHGB #### [facility] [address] [place] [address] Blueprint Cutter: Brandon Anaya MD Triglyceride,Fasting 182 mg/dL High <150 [facility] Comment on above: Result Comment: Triglyceride Guidelines: <150 Desirable 150-199 Borderline 200-499 High >499 Very high Based on AHA Guidelines for fasting triglyceride, November 2011. Performed By: #### C DP, CP, LIP, TROPI, LIPRF, GLYHGB #### [facility] [place] [address] Blueprint Cutter: Brandon Anaya MD Cholesterol in VLDL [Mass/Vol] NOT REPORTED Normal -30 [facility] Comment on above: Performed By: #### C DP, CP, LIP, TROPI, LIPRF, GLYHGB #### [facility] [place] [address] Blueprint Cutter: Brandon Anaya MD Lipid, Fastingon 10-09-2019 Cholesterol [Mass/Vol] 229 mg/dL High <200 [place], [place] Comment on above: Cholesterol Guidelines: <200 Desirable 200-240 Borderline >240 Undesirable Cholesterol in HDL [Mass/Vol] 50 mg/dL >40 [place] Comment on above: HDL Guidelines: <40 Undesirable 40-59 Borderline >59 Desirable Cholesterol in LDL [Mass/Vol] 143 mg/dL High 0 - 130 mg/dL [place] Comment on above: LDL Guidelines: <100 Desirable 100-129 Near to/above Desirable 130-159 Borderline >159 Undesirable Direct (measured) LDL and calculated LDL are not interchangeable tests. Cholesterol in VLDL [Mass/Vol] NOT REPORTED High 1 - 30 mg/dL [place] Cholesterol.total/Chol esterol in HDL [Mass ratio] 4.6 {ratio} <5 [place] Interpretation and review of laboratory results Abnormal [place] Triglyceride, Fasting 182 mg/dL High <150 [place], [place] Comment on above: Triglyceride Guidelines: <150 Desirable 150-199 Borderline 200-499 High >499 Very high Based on AHA Guidelines for fasting triglyceride, November 2011. POC Glucose Fingerstickon Glucose [Mass/Vol] 126 mg/dL High 65 - 105 mg/dL [place] Interpretation and review of laboratory results Abnormal [place] [id number] 10-09-2019 SARS-CoV-2 Normal [facility] Comment on above: Performed By: #### C OVID #### [facility] [address] [place] [phone] Blueprint Cutter: Brandon Anaya MD SARS-CoV-2,Rapid Not Detected Normal NOTDET [facility] Comment on above: Result Comment: Rapid [...] management decisions. Fact sheet for Healthcare Providers: https://www.fda.gov/media/958729/download Fact sheet for Patients: https://www.fda.gov/media/038119/download Methodology: Isothermal Nucleic Acid Amplification Performed By: #### C OVID #### [facility] [address] [place] [address] Blueprint Cutter: Brandon Anaya MD SARS-CoV-2 Source .NASOPHARYNGEAL SWAB Normal [facility] Comment on above: Performed By: #### C OVID #### [facility] [address] [place] [phone] Blueprint Cutter: Brandon Anaya MD Troponinon 10-09-2019 Troponin I.cardiac [Mass/Vol] 10 ng/L Normal 0-14 [facility] Comment on above: Result Comment: High Sensitivity Troponin values cannot be compared with other Troponin methodologies. Patients with high levels of Biotin oral intake (i.e >5mg/day) may have falsely decreased Troponin levels. Samples collected within 8 hours of biotin intake may require additional information for diagnosis. Performed By: #### T OSMAR #### [facility] [address] [place] [phone] Blueprint Cutter: Brandon Anaya MD Troponin I.cardiac [Mass/Vol] NOT REPORTED Normal <0.03 [facility] Comment on above: Performed By: #### T OSMAR #### [facility] [address] [place] [phone] Blueprint Cutter: Brandon Anaya MD Troponin I.cardiac [Mass/Vol] 10 ng/L Normal 0-14 [facility] Comment on above: Result Comment: High Sensitivity Troponin values cannot be compared with other Troponin methodologies. Patients with high levels of Biotin oral intake (i.e >5mg/day) may have falsely decreased Troponin levels. Samples collected within 8 hours of biotin intake may require additional information for diagnosis. Performed By: #### C DP, CP, LIP, TROPI, LIPRF, GLYHGB #### [facility] [address] [place], [place] [phone] Blueprint Cutter: Brandon Anaya MD Troponin I.cardiac [Mass/Vol] NOT REPORTED [place] Troponin T.cardiac [Mass/Vol] NOT REPORTED <0.03 ng/mL [place] Troponin, High Sensitivity 10 ng/L 0 - 14 ng/L [place] Comment on above: High Sensitivity Troponin values cannot be compared with other Troponin methodologies. Patients with high levels of Biotin oral intake (i.e >5mg/day) may have falsely decreased Troponin levels. Samples collected within 8 hours of biotin intake may require additional information for diagnosis. Troponin I.cardiac [Mass/Vol] NOT REPORTED Normal <0.03 [facility] Comment on above: Performed By: #### C DP, CP, LIP, TROPI, LIPRF, GLYHGB #### [facility] [address] [place] [address] Blueprint Cutter: Brandon Anaya MD Troponin I.cardiac [Mass/Vol] NOT REPORTED [place] Troponin T.cardiac [Mass/Vol] NOT REPORTED <0.03 ng/mL [place] Troponin, High Sensitivity 10 ng/L 0 - 14 ng/L [place] Comment on above: High Sensitivity Troponin values cannot be compared with other Troponin methodologies. Patients with high levels of Biotin oral intake (i.e >5mg/day) may have falsely decreased Troponin levels. Samples collected within 8 hours of biotin intake may require additional information for diagnosis. UA w/Reflex Cultureon 2019 Acetoacetic Acid,Ur TRACE Abnormal NEG [facility] Comment on above: Performed By: #### C DP, CP, LIP, TROPI, LIPRF, GLYHGB #### [facility] [address] [place] [address] [phone] Blueprint Cutter: Brandon Anaya MD Bilirubin, SemiQt,Ur Negative Normal NEG [facility] Comment on above: Performed By: #### C DP, CP, LIP, TROPI, LIPRF, GLYHGB #### [address] [address] Blueprint Cutter: Brandon Anaya MD Color (U) YELLOW Normal YEL [facility] Comment on above: Performed By: #### C DP, CP, LIP, TROPI, LIPRF, GLYHGB #### [address] [address] Blueprint Cutter: Brandon Anaya MD Glucose Ql (U) Negative Normal NEG [facility] Comment on above: Performed By: #### C DP, CP, LIP, TROPI, LIPRF, GLYHGB #### [address] [address] Blueprint Cutter: Brandon Anaya MD Hemoglobin, Ur Negative Normal NEG [facility] Comment on above: Performed By: #### C DP, CP, LIP, TROPI, LIPRF, GLYHGB #### [address] [address] Blueprint Cutter: Brandon Anaya MD Leukocyte esterase Test strip Ql (U) Negative Normal NEG [facility] Comment on above: Performed By: #### C DP, CP, LIP, TROPI, LIPRF, GLYHGB #### [address] [address] Blueprint Cutter: Brandon Anaya MD Nitrite,Ur Negative Normal NEG [facility] Comment on above: Performed By: #### C DP, CP, LIP, TROPI, LIPRF, GLYHGB #### [address] [address] Blueprint Cutter: Brandon Anaya MD pH (U) 5.5 [pH] Normal 5.0-8.0 [facility] Comment on above: Performed By: #### C DP, CP, LIP, TROPI, LIPRF, GLYHGB #### [address] [address] Blueprint Cutter: Brandon Anaya MD Protein Ql (U) 1+ Abnormal NEG [facility] Comment on above: Performed By: #### C DP, CP, LIP, TROPI, LIPRF, GLYHGB #### [address] [place] [address] Blueprint Cutter: Brandon Anaya MD Specific gravity (U) [Rel density] 1.086 High 1.005-1.030 [facility] Comment on above: Performed By: #### C DP, CP, LIP, TROPI, LIPRF, GLYHGB #### [address] [address] Blueprint Cutter: Brandon Anaya MD Turbidity CLEAR Normal CLEAR [facility] Comment on above: Performed By: #### C DP, CP, LIP, TROPI, LIPRF, GLYHGB #### [address] [address] Blueprint Cutter: Brandon Anaya MD Urobilinogen,Ur Normal Normal NORM [facility] Comment on above: Performed By: #### C DP, CP, LIP, TROPI, LIPRF, GLYHGB #### [address] [address] Blueprint Cutter: Brandon Anaya MD Comment NOT REPORTED Normal [facility] Comment on above: Performed By: #### C DP, CP, LIP, TROPI, LIPRF, GLYHGB #### [address] [address] Blueprint Cutter: Brandon Anaya MD URINALYSIS, MICROon 10-09-19 20 Amorphous, UA NOT REPORTED None [facility] Bacteria, UA NOT REPORTED None [facility] [place] Casts UA NOT REPORTED [facility] [place], [place] Crystals, UA NOT REPORTED None /HPF [facility] [place] Epithelial Cells UA 10 TO 20 [facility] [place] Mucus, UA NOT REPORTED None [place] Other Observations UA NOT REPORTED NOT REQ. M [place], [place] RBC (U) [#/Vol] 0 TO 2 [place] Renal Epithelial, UA NOT REPORTED 0 /HPF [place], [place] Trichomonas, UA NOT REPORTED None [place] WBC, UA 0 TO 2 [place] Yeast, UA NOT REPORTED None [place] ABDOMEN LIMITEDon 020 [place] ABDOMEN LIMITED EXAMINATION: RIGHT UPPER QUADRANT ULTRASOUND 10/09/2019 3:35 pm COMPARISON: None. HISTORY: ORDERING SYSTEM PROVIDED HISTORY: RUQ and epigastric pain, r/o cholecystitis, gall bladder, pancreas diplomatic interpreter PROVIDED HISTORY: RUQ and epigastric pain, r/o [...] Fransisco Ochoa MD 10/09/19 Final result Normal [facility] US ABDOMEN LIMITED Specify o rgan? LIVER, GALLBLADDER, PANCREASon 10-09-2019 EXAMINATION: RIGHT U PPER QUADRANT ULTRASOUND 10/09/2019 3:35 pm COMPARISON: None. HISTORY: ORDERING SYSTEM PROVIDED HISTORY: RUQ and epigastric pain, r/o cholecystitis, gall bladder, pancreas diplomatic interpreter PROVIDED HISTORY: RUQ and epigastric pain, r/o [...] No evidence of right upper quadrant ascites. [place] Unremarkable right u pper quadrant ultrasound. [place] Prieto, Mhpn Incoming Radiant Results From [employer] - 10/09/2019 4:01 PM EDT EXAMINATION: RIGHT UPPER QUADRANT ULTRASOUND 10/09/2019 3:35 pm COMPARISON: None. HISTORY: ORDERING SYSTEM PROVIDED HISTORY: RUQ and epigastric pain, r/o cholecystitis, gall bladder, pancreas diplomatic interpreter PROVIDED HISTORY: RUQ and epigastric pain, r/o [...] ascites. IMPRESSION: Unremarkable right upper quadrant ultrasound. [place] Urinalysis Reflex to Culture on 10-09-2019 Bilirubin Urine Negative NEGATIVE [place] Color, UA YELLOW YELLOW [place] Glucose, Ur Negative NEGATIVE [place] Interpretation and review of laboratory results Abnormal [place] Ketones Ql (U) TRACE Abnormal NEGATIVE [place] Leukocyte esterase Test strip Ql (U) Negative NEGATIVE [place] Nitrite, Urine Negative NEGATIVE [place] pH, UA 5.5 [place] Protein (U) [Mass/Vol] 1+ Abnormal NEGATIVE [place] Specific [place], UA 1.086 [place], [place] Turbidity UA CLEAR CLEAR [place] Urinalysis Comments NOT REPORTED [place] Urine Hgb Negative NEGATIVE [place] Urobilinogen, Urine Normal Normal [facility] [place] Urinalysis,Microon 0 ----- Normal [facility] Comment on above: Performed By: #### C DP, CP, LIP, TROPI, LIPRF, GLYHGB #### [facility] [address] [place] [phone] Blueprint Cutter: Brandon Anaya MD Epithelial cells LM.HPF (Urine sed) [#/Area] 10 TO 20 Normal 0-5 [facility] Comment on above: Performed By: #### C DP, CP, LIP, TROPI, LIPRF, GLYHGB #### [address] [address] Blueprint Cutter: Brandon Anaya MD RBC (U) [#/Vol] 0 TO 2 Normal 0-2 [facility] Comment on above: Performed By: #### C DP, CP, LIP, TROPI, LIPRF, GLYHGB #### [address] [address] Blueprint Cutter: Brandon Anaya MD WBC (U) [#/Vol] 0 TO 2 Normal 0-5 [facility] Comment on above: Performed By: #### C DP, CP, LIP, TROPI, LIPRF, GLYHGB #### [facility] [address] [place] [phone] Blueprint Cutter: Brandon Anaya MD Amorphous sediment LM Ql (Urine sed) NOT REPORTED Normal [facility] Comment on above: Performed By: #### C DP, CP, LIP, TROPI, LIPRF, GLYHGB #### [facility] [address] [place] [phone] Blueprint Cutter: Brandon Anaya MD Bacteria LM.HPF (Urine sed) [#/Area] NOT REPORTED Normal [facility] Comment on above: Performed By: #### C DP, CP, LIP, TROPI, LIPRF, GLYHGB #### [address] [address] Blueprint Cutter: Brandon Anaya MD Casts LM.LPF (Urine sed) [#/Area] NOT REPORTED Normal 0-2 [facility] Comment on above: Performed By: #### C DP, CP, LIP, TROPI, LIPRF, GLYHGB #### [address] [address] Blueprint Cutter: Brandon Anaya MD Crystals LM Nom (Urine sed) NOT REPORTED Normal NONE [facility] Comment on above: Performed By: #### C DP, CP, LIP, TROPI, LIPRF, GLYHGB #### [address] [address] Blueprint Cutter: Brandon Anaya MD Epithelial, Renal NOT REPORTED Normal 0 [facility] Comment on above: Performed By: #### C DP, CP, LIP, TROPI, LIPRF, GLYHGB #### [address] [address] Blueprint Cutter: Brandon Anaya MD Mucus Strands NOT REPORTED Normal NONE [facility] Comment on above: Performed By: #### C DP, CP, LIP, TROPI, LIPRF, GLYHGB #### [facility] [address] [place] [address] Blueprint Cutter: Brandon Anaya MD Other Observations NOT REPORTED Normal NREQ [facility] Comment on above: Performed By: #### C DP, CP, LIP, TROPI, LIPRF, GLYHGB #### [facility] [address] [place] [address] Blueprint Cutter: Brandon Anaya MD Trichomonas NOT REPORTED Normal NONE [facility] Comment on above: Performed By: #### C DP, CP, LIP, TROPI, LIPRF, GLYHGB #### [facility] [address] [place] [address] Blueprint Cutter: Brandon Anaya MD Yeast LM Ql (Urine sed) NOT REPORTED Normal NONE [facility] Comment on above: Performed By: #### C DP, CP, LIP, TROPI, LIPRF, GLYHGB #### [facility] [place] [address] Blueprint Cutter: Brandon Anaya MD XR ABDOMEN (KUB) (SINGLE [...] Naga Browning MD 10/09/19 Final result Normal [facility] No evidence of bowel obstruction. [place] EXAMINATION: ONE SUP INE XRAY VIEW(S) OF THE ABDOMEN 10/09/2019 7:17 pm COMPARISON: None. HISTORY: ORDERING SYSTEM PROVIDED HISTORY: r/o SBO TECHNOLOGIST PROVIDED HISTORY: r/o SBO Reason for Exam: port Supine FINDINGS: Nonspecific, nonobstructive bowel gas pattern with paucity of bowel gas. Atherosclerotic calcifications. Retained contrast in the urinary bladder. No acute osseous abnormality. [place] Prieto, Mhpn Incoming Radiant Results From [employer] - 10/09/2019 7:35 PM EDT EXAMINATION: ONE [...] abnormality. IMPRESSION: No evidence of bowel obstruction. [facility] [place] Aldosteroneon 07-02-2017 Aldosterone 4.8 ng/dL Normal [facility] Comment on above: Result Comment: (NOT [...] gender-specific referenceintervals for this test in the [facility] Test Directory([email or web address]).Performed by [email or web address],[address] [place] [id number] [email or web address], Nik Rosas MD, Lab. DirectorPerformed at [facility] [address] [place], [place] [id number] ([phone] Performed By: #### C ORTI ####[facility] [place] [address] #### AAANDRES, AREN ####[facility] [place] [address] Renin Activityon 07-02-2017 Renin Activity 0.1 ng/mL/hr Normal [facility] Comment on above: Result Comment: (NOT E)INTERPRETIVE INFORMATION: Renin ActivityAdult, Normal sodium diet: Supine ................. 0.2-1.6 ng/mL/hr Upright ................ 0.5-4.0 ng/mL/hrChildren, Normal sodium diet, Supine: [place] (1-7 days) ..... 2.0-35.0 ng/mL/hr Cord blood [...] activity when angiotensinogen isdecreased.See Compliance Statement D: [email or web address] by [email or web address],[address] [place] [id number] [email or web address], Nik Rosas MD, Lab. DirectorPerformed at [facility] [address] [facility].[place], [place] [id number] ([phone] Performed By: #### Domenico ORTI ####[facility] [place], [place] [id number] #### MARYAM, AKIN ####[facility] [facility].[place], [place] [id number] Basic Metab w/rfx MGon 06-29 (cont.) Normal [facility] Comment on above: Result Comment: Aver age GFR for 70 or more years old: 75 mL/min/1.73sq mChronic Kidney Disease: <60 mL/min/1.73sq mKidney failure: <15 mL/min/1.73sq meGFR calculated using average adult body mass. Additional eGFR calculator available at:http://www.Consano/multiple_crcl_2012.htmPerformed at [facility] [address] [place] [address] Performed By: #### C DP, BMPX, TROPI ####[address] [address] Anion gap 10 mmol/L Normal 9-17 [facility] Comment on above: Performed By: #### C DP, BMPX, TROPI ####[address] [address] Calcium 9.1 mg/dL Normal 8.6-10.4 [facility] Comment on above: Performed By: #### C DP, BMPX, TROPI ####[address] [address] Chloride 106 mmol/L Normal 98-107 [facility] Comment on above: Performed By: #### C DP, BMPX, TROPI ####[address] [address] CO2 26 mmol/L Normal 20-31 [facility] Comment on above: Performed By: #### C DP, BMPX, TROPI ####[address] [address] Creatinine 0.66 mg/dL Normal 0.50-0.90 [facility] Comment on above: Performed By: #### C DP, BMPX, TROPI ####[address] [place] [address] eGFR (non-black) mL/min/{1.73_m2} Normal >60 [facility] Comment on above: Performed By: #### C DP, BMPX, TROPI ####[address] [address] Glucose mass conc 104 mg/dL High 70-99 [facility] Comment on above: Performed By: #### C DP, BMPX, TROPI ####[address] [address] Potassium molar conc 4.1 mmol/L Normal 3.7-5.3 [facility] Comment on above: Performed By: #### C DP, BMPX, TROPI ####[address] [address] Sodium 142 mmol/L Normal 135-144 [facility] Comment on above: Performed By: #### C DP, BMPX, TROPI ####[address] [address] Urea nitrogen 13 mg/dL Normal 8-23 [facility] Comment on above: Performed By: #### C DP, BMPX, TROPI ####[address] [address] BUN/CRE Ratio NOT REPORTED Normal 9-20 [facility] Comment on above: Performed By: #### C DP, BMPX, TROPI ####[address] [address] Staging: NOT REPORTED Normal [facility] Comment on above: Performed By: #### C DP, BMPX, TROPI ####[address] [address] CBC with Diffon 06-29-2017 Abs. Basophil 0.00 k/uL Normal 0.0-0.2 [facility] Comment on above: Result Comment: Perf ormed at [facility] [address] [place] [address] Performed By: #### C DP, BMPX, TROPI ####[facility] [place] [address] Abs.Neutrophil (Seg) 3.80 k/uL Normal 1.3-9.1 [facility] Comment on above: Performed By: #### C DP, BMPX, TROPI ####[address] [address] Basophils/100 WBC Auto (Bld) 1 % Normal 0-2 [facility] Comment on above: Performed By: #### C DP, BMPX, TROPI ####[facility] [place] [address] Eosinophils 0.20 10*3/uL Normal 0.0-0.4 [facility] Comment on above: Performed By: #### C DP, BMPX, TROPI ####[facility] [place] [address] Eosinophils/100 leukocytes 2 % Normal 0-4 [facility] Comment on above: Performed By: #### C DP, BMPX, TROPI ####[facility] [place] [address] Erythrocyte distribution width Auto Ratio (RBC) 14.5 % Normal 11.5-14.9 [facility] Comment on above: Performed By: #### C DP, BMPX, TROPI ####[address] [address] Erythrocytes (RBC) 4.36 10*6/uL Normal 4.0-5.2 [facility] Comment on above: Performed By: #### C DP, BMPX, TROPI ####[facility] [place] [address] Hematocrit (HCT) 38.3 % Normal 36-46 [facility] Comment on above: Performed By: #### C DP, BMPX, TROPI ####[facility] [place] [address] Hemoglobin mass conc (Bld) 12.9 g/dL Normal 12.0-16.0 [facility] Comment on above: Performed By: #### C DP, BMPX, TROPI ####[address] [address] Lymphocytes 2.20 10*3/uL Normal 1.0-4.8 [facility] Comment on above: Performed By: #### C DP, BMPX, TROPI ####[address] [address] Lymphocytes/100 leukocytes 32 % Normal 24-44 [facility] Comment on above: Performed By: #### C DP, BMPX, TROPI ####[facility] [place] [address] MCH 29.5 pg Normal 26-34 [facility] Comment on above: Performed By: #### C DP, BMPX, TROPI ####[address] [address] MCHC mass conc (RBC) 33.6 g/dL Normal 31-37 [facility] Comment on above: Performed By: #### C DP, BMPX, TROPI ####[facility] [place] [address] MCV 87.8 fL Normal 80-100 [facility] Comment on above: Performed By: #### C DP, BMPX, TROPI ####[facility] [place] [address].[place] [address] Monocytes 0.50 10*3/uL Normal 0.1-1.3 [facility] Comment on above: Performed By: #### C DP, BMPX, TROPI ####[facility] [place] [address] Monocytes/100 leukocytes 8 % High 1-7 [facility] Comment on above: Performed By: #### C DP, BMPX, TROPI ####[address] [address] Neutrophil (Seg) 57 % Normal 36-66 [facility] Comment on above: Performed By: #### C DP, BMPX, TROPI ####[address] [address] Platelet mean volume (PMV) 8.5 fL Normal 6.0-12.0 [facility] Comment on above: Performed By: #### C DP, BMPX, TROPI ####[address] [address] Platelets 219 10*3/uL Normal 150-450 [facility] Comment on above: Performed By: #### C DP, BMPX, TROPI ####[facility] [place] [address] WBC (Leukocytes) 6.7 10*3/uL Normal 3.5-11.0 [facility] Comment on above: Performed By: #### C DP, BMPX, TROPI ####[address] [address] Auto Diff Performed NOT REPORTED Normal [facility] Comment on above: Performed By: #### C DP, BMPX, TROPI ####[place] [address] [facility] [address] Erythrocyte morphology NOT REPORTED Normal [facility] [facility] Comment on above: Performed By: #### C DP, BMPX, TROPI ####[facility] [place] [address].[place] [address] Erythrocytes (RBC) NOT REPORTED Normal [facility] Comment on above: Performed By: #### C DP, BMPX, TROPI ####[address] [place] [address] Granulocytes/100 WBC (Bld) NOT REPORTED Normal 0.00-0.30 [facility] Comment on above: Performed By: #### C DP, BMPX, TROPI ####[address] [place] [address] Immature granulocytes #/vol (Bld) NOT REPORTED Normal 0 [facility] Comment on above: Performed By: #### C DP, BMPX, TROPI ####[address] [place] [address] Platelets NOT REPORTED Normal [facility] Comment on above: Performed By: #### C DP, BMPX, TROPI ####[address] [place] [address] WBC Morphology NOT REPORTED Normal [facility] Comment on above: Performed By: #### C DP, BMPX, TROPI ####[address] [place] [address] Troponinon 06-29-2017 Troponin I.cardiac mass conc Normal [facility] Comment on above: Result Comment: Refe rence Range: <0.03 Within reference range. 0.03-0.09 Possible myocardial damage.Repeat at appropriate intervals to rule out chronic elevation. >= 0.10 Indicative of myocardial damage.Patients with high levels of Biotin oral intake (i.e >5mg/day) may have falsely decreased Troponin T levels. Samples collected within 8 hours of biotin intake may require additional information for diagnosis.Performed at [address] [address] Performed By: #### C DP, BMPX, TROPI ####[address] [address] Troponin T.cardiac mass conc ug/L Normal <0.03 [facility] Comment on above: Result Comment: Trop onin T results cannot be compared to Troponin-I results. Performed By: #### C DP, BMPX, TROPI ####[address] [address] Troponin I.cardiac mass conc Normal [facility] Comment on above: Result Comment: Refe rence Range: <0.03 Within reference range. 0.03-0.09 Possible myocardial damage.Repeat at appropriate intervals to rule out chronic elevation. >= 0.10 Indicative of myocardial damage.Patients with high levels of Biotin oral intake (i.e >5mg/day) may have falsely decreased Troponin T levels. Samples collected within 8 hours of biotin intake may require additional information for diagnosis.Performed at [address] [address] Performed By: #### T ROPI ####[address] [address] Troponin T.cardiac mass conc ug/L Normal <0.03 [facility] Comment on above: Result Comment: Trop onin T results cannot be compared to Troponin-I results. Performed By: #### T ROPI ####[address] [address] XR CHEST (2 VW)on 06-29-2017 XR CHEST [...] by:FABIANA Oliverigned by:Zaire Dominguez MD//18Final result Normal [facility] Basic Metab w/rfx MGon 06-28 (cont.) Normal [facility] Comment on above: Result Comment: Aver age GFR for 70 or more years old: 75 mL/min/1.73sq mChronic Kidney Disease: <60 mL/min/1.73sq mKidney failure: <15 mL/min/1.73sq meGFR calculated using average adult body mass. Additional eGFR calculator available at:http://www.[employer]/multiple_crcl_2012.htmPerformed at [facility] [address] [place] [address] Performed By: #### C DP, BMPX ####[address] [place] [address] Anion gap 13 mmol/L Normal 9-17 [facility] Comment on above: Performed By: #### C DP, BMPX ####[facility] [place] [address] Calcium 8.7 mg/dL Normal 8.6-10.4 [facility] Comment on above: Performed By: #### C DP, BMPX ####[address] [place] [address] Chloride 106 mmol/L Normal 98-107 [facility] Comment on above: Performed By: #### C DP, BMPX ####[facility] [place] [address].[place] [address] CO2 22 mmol/L Normal 20-31 [facility] Comment on above: Performed By: #### C DP, BMPX ####[facility] [place] [address] Creatinine 0.53 mg/dL Normal 0.50-0.90 [facility] Comment on above: Performed By: #### C DP, BMPX ####[address] [address] eGFR (non-black) mL/min/{1.73_m2} Normal >60 [facility] Comment on above: Performed By: #### C DP, BMPX ####[address] [address] Glucose mass conc 168 mg/dL High 70-99 [facility] Comment on above: Performed By: #### C DP, BMPX ####[facility] [place] [address] Potassium molar conc 3.7 mmol/L Normal 3.7-5.3 [facility] Comment on above: Performed By: #### C DP, BMPX ####[facility] [place] [address] Sodium 141 mmol/L Normal 135-144 [facility] Comment on above: Performed By: #### C DP, BMPX ####[facility] [place] [address] Urea nitrogen 11 mg/dL Normal 8-23 [facility] Comment on above: Performed By: #### C DP, BMPX ####[facility] [facility] [address] BUN/CRE Ratio NOT REPORTED Normal 9-20 [facility] Comment on above: Performed By: #### C DP, BMPX ####[facility] [place] [address] Staging: NOT REPORTED Normal [facility] Comment on above: Performed By: #### C DP, BMPX ####[facility] [place] [address] Basic Metabolic Profon 06-28 (cont.) Normal [facility] Comment on above: Result Comment: Aver age GFR for 70 or more years old: 75 mL/min/1.73sq mChronic Kidney Disease: <60 mL/min/1.73sq mKidney failure: <15 mL/min/1.73sq meGFR calculated using average adult body mass. Additional eGFR calculator available at:http://www.[employer]/multiple_crcl_2012.htmPerformed at [facility] [address] [place] [address] Performed By: #### C DP, BMP, TROPI, TSHX ####[facility] [place] [address] Anion gap 13 mmol/L Normal 9-17 [facility] Comment on above: Performed By: #### C DP, BMP, TROPI, TSHX ####[facility] [place] [address] Calcium 9.2 mg/dL Normal 8.6-10.4 [facility] Comment on above: Performed By: #### C DP, BMP, TROPI, TSHX ####[facility] [place] [address] Chloride 102 mmol/L Normal 98-107 [facility] Comment on above: Performed By: #### C DP, BMP, TROPI, TSHX ####[facility] [facility] [address] CO2 26 mmol/L Normal 20-31 [facility] Comment on above: Performed By: #### C DP, BMP, TROPI, TSHX ####[facility] [place] [address] Creatinine 0.61 mg/dL Normal 0.50-0.90 [facility] Comment on above: Performed By: #### C DP, BMP, TROPI, TSHX ####[address] [address] eGFR (non-black) mL/min/{1.73_m2} Normal >60 [facility] Comment on above: Performed By: #### C DP, BMP, TROPI, TSHX ####[address] [address] Glucose mass conc 108 mg/dL High 70-99 [facility] Comment on above: Performed By: #### C DP, BMP, TROPI, TSHX ####[address] [address] Potassium molar conc 4.7 mmol/L Normal 3.7-5.3 [facility] Comment on above: Performed By: #### C DP, BMP, TROPI, TSHX ####[facility] [place] [address] Sodium 141 mmol/L Normal 135-144 [facility] Comment on above: Performed By: #### C DP, BMP, TROPI, TSHX ####[address] [address] Urea nitrogen 16 mg/dL Normal 8-23 [facility] Comment on above: Performed By: #### C DP, BMP, TROPI, TSHX ####[facility] [place] [address] BUN/CRE Ratio NOT REPORTED Normal 9-20 [facility] Comment on above: Performed By: #### C DP, BMP, TROPI, TSHX ####[facility] [place] [address] Staging: NOT REPORTED Normal [facility] Comment on above: Performed By: #### C DP, BMP, TROPI, TSHX ####[facility] [place] [address] CBC with Diffon 06-28-2017 Abs. Basophil 0.00 k/uL Normal 0.0-0.2 [facility] Comment on above: Result Comment: Perf ormed at [facility] [address] [place] [address] Performed By: #### C DP, BMPX ####[facility] [place] [address] Abs.Neutrophil (Seg) 5.50 k/uL Normal 1.3-9.1 [facility] Comment on above: Performed By: #### C DP, BMPX ####[address] [address] Basophils/100 WBC Auto (Bld) 1 % Normal 0-2 [facility] Comment on above: Performed By: #### C DP, BMPX ####[facility] [place] [address] Eosinophils 0.10 10*3/uL Normal 0.0-0.4 [facility] Comment on above: Performed By: #### C DP, BMPX ####[address] [address] Eosinophils/100 leukocytes 2 % Normal 0-4 [facility] Comment on above: Performed By: #### C DP, BMPX ####[facility] [place] [address] Erythrocyte distribution width Auto Ratio (RBC) 14.8 % Normal 11.5-14.9 [facility] Comment on above: Performed By: #### C DP, BMPX ####[facility] [place] [address] Erythrocytes (RBC) 4.47 10*6/uL Normal 4.0-5.2 [facility] Comment on above: Performed By: #### C DP, BMPX ####[facility] [place] [address] Hematocrit (HCT) 39.8 % Normal 36-46 [facility] Comment on above: Performed By: #### C DP, BMPX ####[facility] [place] [address] Hemoglobin mass conc (Bld) 13.3 g/dL Normal 12.0-16.0 [facility] Comment on above: Performed By: #### C DP, BMPX ####[facility] [facility] [address] Lymphocytes 1.90 10*3/uL Normal 1.0-4.8 [facility] Comment on above: Performed By: #### C DP, BMPX ####[facility] [place] [address] Lymphocytes/100 leukocytes 23 % Low 24-44 [facility] Comment on above: Performed By: #### C DP, BMPX ####[facility] [place] [address] MCH 29.7 pg Normal 26-34 [facility] Comment on above: Performed By: #### C DP, BMPX ####[facility] [place] [address] MCHC mass conc (RBC) 33.3 g/dL Normal 31-37 [facility] Comment on above: Performed By: #### C DP, BMPX ####[facility] [place] [address] MCV 89.1 fL Normal 80-100 [facility] Comment on above: Performed By: #### C DP, BMPX ####[facility] [place] [address] Monocytes 0.50 10*3/uL Normal 0.1-1.3 [facility] Comment on above: Performed By: #### C DP, BMPX ####[address] [address] Monocytes/100 leukocytes 6 % Normal 1-7 [facility] Comment on above: Performed By: #### C DP, BMPX ####[address] [address] Neutrophil (Seg) 68 % High 36-66 [facility] Comment on above: Performed By: #### C DP, BMPX ####[address] [address] Platelet mean volume (PMV) 8.6 fL Normal 6.0-12.0 [facility] Comment on above: Performed By: #### C DP, BMPX ####[address] [address] Platelets 238 10*3/uL Normal 150-450 [facility] Comment on above: Performed By: #### C DP, BMPX ####[address] [address] WBC (Leukocytes) 8.0 10*3/uL Normal 3.5-11.0 [facility] Comment on above: Performed By: #### C DP, BMPX ####[facility] [place] [address] Auto Diff Performed NOT REPORTED Normal [facility] Comment on above: Performed By: #### C DP, BMPX ####[facility] [place] [address] Erythrocyte morphology NOT REPORTED Normal [facility] Comment on above: Performed By: #### C DP, BMPX ####[facility] [place] [address] [place] [address] Erythrocytes (RBC) NOT REPORTED Normal [facility] Comment on above: Performed By: #### C DP, BMPX ####[facility] [place] [address].[place] [address] Granulocytes/100 WBC (Bld) NOT REPORTED Normal 0.00-0.30 [facility] Comment on above: Performed By: #### C DP, BMPX ####[address] [address] Immature granulocytes #/vol (Bld) NOT REPORTED Normal 0 [facility] Comment on above: Performed By: #### C DP, BMPX ####[facility] [place] [address].[place] [address] Platelets NOT REPORTED Normal [facility] Comment on above: Performed By: #### C DP, BMPX ####[address] [address] WBC Morphology NOT REPORTED Normal [facility] Comment on above: Performed By: #### C DP, BMPX ####[address] [place] [address] Abs. Basophil 0.10 k/uL Normal 0.0-0.2 [facility] Comment on above: Result Comment: Perf ormed at [facility] [address] [place] [address] Performed By: #### C DP, BMP, TROPI, TSHX ####[facility] [facility] [address] Abs.Neutrophil (Seg) 4.20 k/uL Normal 1.3-9.1 [facility] Comment on above: Performed By: #### C DP, BMP, TROPI, TSHX ####[facility] [place] [address].[place] [address] Basophils/100 WBC Auto (Bld) 1 % Normal 0-2 [facility] Comment on above: Performed By: #### C DP, BMP, TROPI, TSHX ####[facility] [place] [address] Eosinophils 0.20 10*3/uL Normal 0.0-0.4 [facility] Comment on above: Performed By: #### C DP, BMP, TROPI, TSHX ####[facility] [place] [address].[place] [address] Eosinophils/100 leukocytes 2 % Normal 0-4 [facility] Comment on above: Performed By: #### C DP, BMP, TROPI, TSHX ####[facility] [place] [address] Erythrocyte distribution width Auto Ratio (RBC) 14.7 % Normal 11.5-14.9 [facility] Comment on above: Performed By: #### C DP, BMP, TROPI, TSHX ####[facility] [place] [address] Erythrocytes (RBC) 4.38 10*6/uL Normal 4.0-5.2 [facility] Comment on above: Performed By: #### C DP, BMP, TROPI, TSHX ####[address] [address] Hematocrit (HCT) 38.7 % Normal 36-46 [facility] Comment on above: Performed By: #### C DP, BMP, TROPI, TSHX ####[address] [address] Hemoglobin mass conc (Bld) 12.9 g/dL Normal 12.0-16.0 [facility] Comment on above: Performed By: #### C DP, BMP, TROPI, TSHX ####[address] [address] Lymphocytes 2.60 10*3/uL Normal 1.0-4.8 [facility] Comment on above: Performed By: #### C DP, BMP, TROPI, TSHX ####[address] [address] Lymphocytes/100 leukocytes 34 % Normal 24-44 [facility] Comment on above: Performed By: #### C DP, BMP, TROPI, TSHX ####[address] [address] MCH 29.6 pg Normal 26-34 [facility] Comment on above: Performed By: #### C DP, BMP, TROPI, TSHX ####[address] [address] MCHC mass conc (RBC) 33.4 g/dL Normal 31-37 [facility] Comment on above: Performed By: #### C DP, BMP, TROPI, TSHX ####[address] [address] MCV 88.4 fL Normal 80-100 [facility] Comment on above: Performed By: #### C DP, BMP, TROPI, TSHX ####[facility] [place] [address].[place] [address] Monocytes 0.60 10*3/uL Normal 0.1-1.3 [facility] Comment on above: Performed By: #### C DP, BMP, TROPI, TSHX ####[address] [address] Monocytes/100 leukocytes 8 % High 1-7 [facility] Comment on above: Performed By: #### C DP, BMP, TROPI, TSHX ####[address] [address] Neutrophil (Seg) 55 % Normal 36-66 [facility] Comment on above: Performed By: #### C DP, BMP, TROPI, TSHX ####[facility] [place] [address] Platelet mean volume (PMV) 8.6 fL Normal 6.0-12.0 [facility] Comment on above: Performed By: #### C DP, BMP, TROPI, TSHX ####[facility] [place] [address] Platelets 229 10*3/uL Normal 150-450 [facility] Comment on above: Performed By: #### C DP, BMP, TROPI, TSHX ####[facility] [place] [address] WBC (Leukocytes) 7.7 10*3/uL Normal 3.5-11.0 [facility] Comment on above: Performed By: #### C DP, BMP, TROPI, TSHX ####[address] [place] [address] Auto Diff Performed NOT REPORTED Normal [facility] Comment on above: Performed By: #### C DP, BMP, TROPI, TSHX ####[facility] [facility] [address] Erythrocyte morphology NOT REPORTED Normal [facility] Comment on above: Performed By: #### C DP, BMP, TROPI, TSHX ####[facility] [place] [address].[place] [address] Erythrocytes (RBC) NOT REPORTED Normal [facility] Comment on above: Performed By: #### C DP, BMP, TROPI, TSHX ####[facility] [place] [address].[place] [address] Granulocytes/100 WBC (Bld) NOT REPORTED Normal 0.00-0.30 [facility] Comment on above: Performed By: #### C DP, BMP, TROPI, TSHX ####[facility] [place] [address] Immature granulocytes #/vol (Bld) NOT REPORTED Normal 0 [facility] Comment on above: Performed By: #### C DP, BMP, TROPI, TSHX ####[facility] [place] [address].[place] [address] Platelets NOT REPORTED Normal [facility] Comment on above: Performed By: #### C DP, BMP, TROPI, TSHX ####[facility] [place] [address].[place] [address] WBC Morphology NOT REPORTED Normal [facility] Comment on above: Performed By: #### C DP, BMP, TROPI, TSHX ####[facility] [place] [address] Cortisolon 06-28-2017 Cortisol 4.7 ug/dL Normal 2.7-18.4 [facility] Comment on above: Result Comment: Lukasz isol Reference Range: AM 6.0-18.4 PM 2.7-10.5Performed at [facility] [address] [place] [address] Performed By: #### C ORTI ####[address] [address] #### AALD, AREN ####[address] [address] Collection Info. NOT REPORTED Normal [facility] Comment on above: Performed By: #### C ORTI ####[address] [address] #### AALD, AREN ####[address] [place] [address] Renin Activityon 06-28-2017 Comment: NOT REPORTED Normal [facility] Comment on above: Performed By: #### C ORTI ####[address] [address] #### AALD, AREN ####[address] [address] TSH w/reflex to FT4on 2017 Thyroid stimulating hormone (TSH) 2.65 m[IU]/L Normal 0.30-5.00 [facility] Comment on above: Result Comment: Perf ormed at [facility] [address] [place] [address] Performed By: #### C DP, BMP, TROPI, TSHX ####[facility] [place] [address] Troponinon 06-28-2017 Troponin I.cardiac mass conc Normal [facility] Comment on above: Result Comment: Refe rence Range: <0.03 Within reference range. 0.03-0.09 Possible myocardial damage.Repeat at appropriate intervals to rule out chronic elevation. >= 0.10 Indicative of myocardial damage.Patients with high levels of Biotin oral intake (i.e >5mg/day) may have falsely decreased Troponin T levels. Samples collected within 8 hours of biotin intake may require additional information for diagnosis.Performed at [facility] [address] [place] [address] Performed By: #### T ROPI ####[address] [address] Troponin T.cardiac mass conc ug/L Normal <0.03 [facility] Comment on above: Result Comment: Trop onin T results cannot be compared to Troponin-I results. Performed By: #### T ROPI ####[address] [place] [address] Troponin I.cardiac mass conc Normal [facility] Comment on above: Result Comment: Refe rence Range: <0.03 Within reference range. 0.03-0.09 Possible myocardial damage.Repeat at appropriate intervals to rule out chronic elevation. >= 0.10 Indicative of myocardial damage.Patients with high levels of Biotin oral intake (i.e >5mg/day) may have falsely decreased Troponin T levels. Samples collected within 8 hours of biotin intake may require additional information for diagnosis.Performed at [address] [place] [address] Performed By: #### T ROPI ####[address] [place] [address] Troponin T.cardiac mass conc ug/L Normal <0.03 [facility] Comment on above: Result Comment: Trop onin T results cannot be compared to Troponin-I results. Performed By: #### T ROPI ####[address] [address] Troponin I.cardiac mass conc Normal [facility] Comment on above: Result Comment: Refe rence Range: <0.03 Within reference range. 0.03-0.09 Possible myocardial damage.Repeat at appropriate intervals to rule out chronic elevation. >= 0.10 Indicative of myocardial damage.Patients with high levels of Biotin oral intake (i.e >5mg/day) may have falsely decreased Troponin T levels. Samples collected within 8 hours of biotin intake may require additional information for diagnosis.Performed at [address] [address] Performed By: #### C DP, BMP, TROPI, TSHX ####[address] [address] Troponin T.cardiac mass conc ug/L Normal <0.03 [facility] Comment on above: Result Comment: Trop onin T results cannot be compared to Troponin-I results. Performed By: #### C DP, BMP, TROPI, TSHX ####[address] [address] UA w/Reflex Cultureon 2017 Acetaminophen mass conc Negative Normal NEG [facility] Comment on above: Performed By: #### U AX ####[address] [address] Bilirubin (direct) Negative Normal NEG [facility] Comment on above: Performed By: #### U AX ####[address] [address] Comment Microscopic exam not performed based on chemical results unless requested in Normal [facility] Comment on above: Result Comment: orig inal order.Performed at [address] [address] Performed By: #### U AX ####[address] [address] Hemoglobin mass conc (Bld) Negative Normal NEG [facility] Comment on above: Performed By: #### U AX ####[facility] [place] [address] [place] [address] Nitrite,Ur Negative Normal NEG [facility] Comment on above: Performed By: #### U AX ####[facility] [place] [address], [place] [address] Turbidity CLEAR Normal CLEAR [facility] Comment on above: Performed By: #### U AX ####[facility] [place] [address] [place] [address] Urine, color YELLOW Normal YEL [facility] Comment on above: Performed By: #### U AX ####[address] [place] [address] Urine, glucose presence Negative Normal NEG [facility] Comment on above: Performed By: #### U AX ####[address] [place] [address] Urine, leukocyte esterase presence Negative Normal NEG [facility] Comment on above: Performed By: #### U AX ####[address] [place] [address] Urine, pH 5.5 [pH] Normal 5.0-8.0 [facility] Comment on above: Performed By: #### U AX ####[address] [place] [address] Urine, protein presence Negative Normal NEG [facility] Comment on above: Performed By: #### U AX ####[address] [place] [address] Urine, specific gravity 1.011 Normal 1.000-1.030 [facility] Comment on above: Performed By: #### U AX ####[address] [place] [address] Urobilinogen,Ur Normal Normal NORM [facility] Comment on above: Performed By: #### U AX ####[facility] [place] [address] Vital Signs Date Time Vital Sign Value Performing Clinician Facility 04-08-2023 10:25-0500 Body height 162.56 cm MD Adina Bunch Work Phone: [facility] 04-08-2023 10:25-0500 Body mass index (BMI) [Ratio] 26.7 kg/m2 MD Adina Bunch Work Phone: [facility] 04-08-2023 10:25-0500 Body weight 70.76 kg MD Adina Bunch Work Phone: [facility] 10-16-2019 15:45-0400 BP Diastolic 64 mm[Hg] [place], [place] 10-16-2019 15:45-0400 BP Systolic 154 mm[Hg] [place] 10-16-2019 08:25-0400 Body Temperature 98.01 [degF] [place], [place] 10-16-2019 08:25-0400 Pulse (Heart Rate) 70 /min [place], [place] 10-16-2019 08:25-0400 Pulse Oximetry 97 % [place] 10-16-2019 08:25-0400 Respiratory Rate 20 /min [place] 10-16-2019 06:15-0400 BMI (Body Mass Index) 25.51 kg/m2 [place] 10-16-2019 06:15-0400 Body weight 67.4 kg [place] 10-15-2019 15:22-0400 Height 162.6 cm [place] 10-13-2019 16:07-0400 Respiratory rate NOT REPORTED DUGLAS [facility] Comment on above: Performed By: #### CDP, CP, LIP, TROPI, LIPRF, GLYHGB #### [facility] [address] [id number] Blueprint Cutter: Brandon Anaya MD 10-13-2019 14:24-0400 Respiratory rate NOT REPORTED [facility] [place] [place] Encounters Encounter Date Encounter Type Care Provider Facility Start: 04-24-2023 End: 04-24-2023 ambulatory Anju Lees Facility:[facility] Start: 04-17-2023 End: 04-17-2023 ambulatory CURRY A PETITTI Not Available Start: 04-17-2023 End: 04-17-2023 ambulatory MD Adina Bunch Work Phone: [facility] Work Phone: Start: 04-17-2023 End: 04-17-2023 Patient encounter procedure MD Adina Bunch Work Phone: [facility] Work Phone: Start: 04-08-2023 End: 04-08-2023 ambulatory MD Adina Bunch Work Phone: [facility] Work Phone: Start: 04-08-2023 End: 04-08-2023 Patient encounter procedure MD Adina Bunch Work Phone: [facility] Work Phone: Start: 04-08-2023 End: 04-08-2023 ambulatory MD Adina Bunch Work Phone: [facility] Work Phone: Start: 04-08-2023 End: 04-08-2023 Patient encounter procedure MD Adina Bunch Work Phone: [facility] Start: 02-13-2023 End: 02-13-2023 ambulatory DENISHA [...] and management of inpatient DUGLAS S JUDIE [facility] Start: 10-09-2019 End: 10-16-2019 Evaluation and management of inpatient Yoon Barnhart Rogelio Work Phone: [facility] Comment on above: Abdominal aortic ane urysm (AAA) without rupture (HCC) (Primary Dx); Acute low back pain, unspecified back pain laterality, unspecified whether sciatica present; Vertigo; Nausea and vomiting, intractability of vomiting not specified, unspecified vomiting type; Hypertensive urgency Start: 06-27-2017 End: 06-29-2017 Evaluation and management of inpatient ADINA M Evonne [facility] Procedures Date Procedure Procedure Detail Performing [...] 10-09-2019 Radiologic exam abdo men 1 view DGULAS JUDIE Start: 10-09-2019 Gluc bld gluc mntr [...] ev cleared fda spec home use DUGLAS JUDEI Start: 10-09-2019 Us abdominal real ti me [...] DUGLAS JUDIE Start: 10-09-2019 IP CONSULT TO CHALK MACHINE OPERATOR AL MEDICINE DUGLAS JUDIE Start: 10-09-2019 [...] HO Y Start: 06-28-2017 IP CONSULT TO CHALK MACHINE OPERATOR AL MEDICINE ADINA HOY Start: 06-28-2017 [...] right hand XR hand RT min 3V* [facility] Start: 04-08-2023 XR Hand - right GE 3 Views [facility] Start: 10-14-2020 Creatinine measurement Creatinine mo nitoring [place], [place] Start: 10-14-2020 Potassium monitoring Potassium monit oring [place] Start: 10-26-2019 Influenza vaccination Flu vaccine (# 1) [place] Start: 08-16-2018 Annual Wellness Visi t (AWV) Annual Wellness Visit (AWV) [place] Start: 05-23-2008 Pneumococcal 65+ yea rs Vaccine (1 of 1 - PPSV23) Pneumococcal 65+ years Vaccine (1 of 1 - PPSV23) [place] Start: 05-23-1998 Screening for osteoporosis DEXA (modify frequency per FRAX score) [place] Start: 05-23-1993 Shingles Vaccine (1 of 2) Shingles Vaccine (1 of 2) [place] Start: 05-23-1962 DTaP/Tdap/Td vaccine (1 - Tdap) DTaP/Tdap/Td vaccine (1 - Tdap) [place] End: 10-11-2019 ALBUMIN, CSF ALBUMIN, CSF Lab Routine One Time for 1 Occurrences starting 10/11/2019 until 10/11/2019 [place] Comment on above: One Time for 1 Occur rences starting 10/11/2019 until 10/11/2019 Basic Metabolic Pane l w/ Reflex to MG Basic Metabolic Panel w/ Reflex to MG Lab Routine Daily until discontinued starting 10/10/2019, 7 completed [place] Comment on above: Daily until disconti nued starting 10/10/2019, 7 completed CBC auto differential CBC auto d ifferential Lab Routine Daily until discontinued starting 10/10/2019, 7 completed [place] Comment on above: Daily until disconti nued starting 10/10/2019, 7 completed Culture, Blood 1 [place] End: 10-16-2019 Culture, Urine Culture, Urine Microbiology Routine One Time for 1 Occurrences starting 10/16/2019 until 10/16/2019 [place] Comment on above: One Time for 1 Occur rences starting 10/16/2019 until 10/16/2019 Culture, Urine Culture, Urine Microbiology [employer] Label Print 10/16/2019 1:08 PM EDT [place] Nebulizer therapy HHN Treatment Respiratory Care Routine As Needed until discontinued starting 10/11/2019 [place] Comment on above: As Needed until disc ontinued starting 10/11/2019 Oxygen therapy [[facility] Data Set] Initiate Oxygen Therapy Protocol Respiratory Care Routine Daily until discontinued starting 10/09/2019 [place] Comment on above: Daily until disconti nued starting 10/09/2019 POCT Glucose [place] Comment on above: As Needed until disc ontinued starting 10/09/2019 4X Daily (AC & HS) u ntil discontinued starting 10/09/2019 Immunizations Immunization Date Immunization Notes Care Provider [facility] 12-20-2020 COVID-19 mRNA-1273 (Ramila) MD Adina Bunch Work Phone: [facility] 04-21-2020 COVID-19 mRNA-1273 (Ramila) MD Adina Bunch Work Phone: [facility] 03-24-2020 COVID-19 mRNA-1273 (Ramila) MD Adina Bunch Work Phone: [facility] Payers Date Payer Category Payer Medicare [id number] 2014 Medicare [id number] 1961 Medicare [id number] 1961 Medicare [id number] 1961 Self-pay 1945 Unknown [id number] 2.16.8 [id number] 1945 Unknown [id number] 2.16.84 [id number] 1945 Unknown [id number] 2.16.84 [id number] 1943 Unknown [id number] 2.16.84 0.1.259584.3.579.2.593 1943 Unknown [id number] 2.16.84 0.1.648072.3.579.2.593 1943 Unknown [id number] 2.16.84 [id number] 1943 Unknown [id number] 2.16.84 0.1.254903.3.579.2.1259 1943 Unknown [id number] 2.16.840 .1.566775.3.579.2.1259 1943 Unknown [id number] 2.16.840 .1.297024.3.579.2.1259 1943 Unknown [id number] 2.16.840. 1.322920.3.579.2.1259 1943 Unknown [id number] 2.16.840. 1.351820.3.579.2.1259 Unknown [id number] 2.16.8 40.1.393575.3.579.2.531 Unknown [id number] 2.16.8 40.1.260332.3.579.2.531 Unknown [id number] 2.16.8 40.1.183462.3.579.2.531 Social History Date Type Detail Facility Start: 10-09-2019 Tobacco smoking stat [facility] Never smoker [place] Start: 10-09-2019 Tobacco use and exposure Never used [place] Start: 10-09-2019 Alcohol intake Current non-dr neck cutter of alcohol (finding) [place] Sex Assigned At Not on file [place] Exposure to SARS-CoV -2 (event) Not sure [place] Start: 1945 Sex Assigned At Female F [facility] Start: 04-17-2023 Tobacco smoking stat [facility] Ex-smoker (finding) [facility] History and physical note 06-15-2020 Note Date & Type Note Facility 06-15-2020 Note [id number] 5#1.00CD:127 [facility] Clinical Note 06-15-2020 Note Date & [...] you have a fever over 100 degrees [facility] History and physical note 05-18-2020 Note Date & Type Note Facility 05-18-2020 Note [id number] 2#1.00CD:127 [facility] Clinical Note 05-18-2020 Note Date & [...] you have a fever over 100 degrees [facility] Evaluation note Note Date & Type Note Facility Evaluation note Diagnosis Onset Date Trigger finger, right middle finger acute Trigger finger, right ring finger acute [facility] Work Phone: Summary Purpose Family History No Family History Records Found Relationship Condition Age at Onset Recorded Date/T janki father Malignant neoplasm of lung Unknown Not Specified Myocardial infarction Unknown Advance Directives No Advanced Directives Records FoundDocuments on File Type Date Recorded 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 Expl anation ACP-Advance Directive ACP-Power of Dispatcher Motor Vehicle Latest Code Status on File Code Status [...] Directives: Admitting Physician: Duglas Rodrigues MD PCP: Adnia Bunch MD Discharging Nurse: [facility] Unit/Room#: Discharging Unit Phone Number: Emergency Contact: Extended Emergency Contact Information Primary Emergency Contact: [facility] Relation: Spouse Past Surgical History: Past [...] Assisted Dressing Assisted Toileting Assisted Feeding Assisted Top Edge Beveler Independent Med Delivery whole Wound Care Documentation [...] applicable) Name: Address: Dialysis Schedule: Phone: Fax: Child Nutrition Manager/Dispatcher Clerk signature: EDT ICIAN SECTION Prognosis: Fair Condition [...] size monitoring with PCP F/u urologist at [facility] in 1 week for lowe and void trial Take docusate 100 mg daily and miralax 17 g daily. documented in this encounter History of Present Illness * Tami Ni RN - 10/16/2019 5:51 PM EDT [employer] discharged patient @ 1745 by wheelchair off unit with . [employer] went over all discharge paperwork and patient [...] who was admitted as a transfer from [facility] 10/09/2019 where she presented with gradually worsening [...] to ensure the accuracy of this automated founder and chief executive officer, some errors in founder and chief executive officer may have occurred. * Michelle Pelletier MD - 10/16/2019 11:07 AM EDT [facility] Internal Medicine Teaching Residency Program Inpatient Daily Progress Note Patient: Zachary Maynard Date of : 1945 Acct: [id number] Room: Admit date: 10/09/2019 Today's date: 10/16/19 [...] of COPD, primary hypertension was transferred from [facility] for management of infrarenal abdominal aortic aneurysm and for vascular consultation. States she started having lower back pain since . Describes the pain as constant, sharp, 10out of 10 in intensity associated with nausea. Patient went to the emergency department at [facility] to have hypertensive emergency with systolics above 200 and d-dimer was elevated. CT abdomen was done which showed 3.5 infrarenal aortic aneurysm, started on Cardene drip and pain medications we re given. Patient was transferred to [facility] found to be hypoxic in upper 80s, [...] Q4H PRN hydrALAZINE, 10 mg, Q6H PRN hkpzrzyiho-caypelstlxxtn-dzmnajyg, 1 tablet, Q4H PRN sodium chloride flush, [...] Dwayne Hanson MD Internal Medicine Resident, PGY-1 [facility]; [place], [place] 10/16/2019, 11:07 AM I have discussed [...] 9:31 AM EDT [facility] - Progress Note Today's Date [...] culture. Medical Decision Making/Summary/Discussion:10/16/2019 Infection Control Recommendations [place] Precautions Antimicrobial Stewardship Recommendations Discontinuation of therapy [...] of . INITIAL HISTORY: Patient transferred from [facility] on 10-09-19 because of low back pain and findings of an infrarenal abdominal aortic aneurysm. Developed onset of back pain on 10-07-19, associated with nausea. She was evaluated at [facility] and found to have a hypertensive emergency with systolic pressures over [address] showed a 3.5 cm infrarenal aortic aneurysm. Her BP was controlled with Cardene drip and the patient was transferred [place] [facility] At [facility] patient had signs of hypoxia, and an [...] file Gets together: Not on file Attends confucianism service: Not on file Active member of [...] shift. No abnormal extra-axial fluid collection. The aslmeron-white differentiation is maintained without evidence of an [...] Initial FINDINGS: CTA NECK: AORTIC ARCH/ARCH VESSELS: Morn-si-otxejihm atherosclerotic plaque at the arch arch and [...] No acute pulmonary process. Emphysema. Medical Decision Fulfum-Zwsayeyw-Tutlf: 10/15/2019 12:10 AM - Blanco Moreau Incoming Lab Results From [facility] Specimen Information: Blood Component Collected Lab Specimen Description 10/12/2019 2:17 PM [facility] .BLOOD Special Requests 10/12/2019 2:17 PM [facility] back lt arm 3ml Culture 10/12/2019 2:17 PM [facility] NO GROWTH 3 DAYS Medical Decision Making-Other: Note: Labs, medications, radiologic studies were reviewed with personal review of films Large amounts of data were reviewed Discussed with nursing Staff, interstate planner Infection Control and Prevention measures reviewed [...] Patel RN - 10/16/2019 6:15 AM EDT [employer] bladder scanned patient and bladder scan shows 554 mL, flex o writer operator straight cath patient and was only able [...] loss Fluid Accumulation: 1 - Mild Extremities Therapist Phys Strength: Not Performed Estimated Daily Nutrient Needs: Energy (kcal): 1.3-1.4 ~> 9468-6781 kcals/d; Weight Used for Energy Requirements: Admission Protein (g): 1.2-1.4 ~> 65-76 gms/d; Weight Used for Protein Requirements: [place] Nutrition Related Findings: Na 131 Wounds: None Current Nutrition Therapies: DIET GENERAL; Anthropometric Measures: Height: 5' 4 (162.6 cm) Current Body Weight: 154 lb (69.9 kg) Admission Body Weight: 154 lb (69.9 kg) Usual Body Weight: 160 lb (72.6 kg)(per pt's ) [place] Body Weight: 120 lbs; % [place] Body Weight 128.3 % BMI: 26.4 BMI [...] Discharge Planning: Too soon to determine Contact: [phone] * Dwayne Hanson MD - 10/15/2019 3:09 PM EDT [facility] Internal Medicine Teaching Residency Program Inpatient Daily Progress Note Patient: Zachary Maynard Date of : 1945 Acct: [id number] Room: Admit date: 10/09/2019 Today's date: 10/15/19 [...] of COPD, primary hypertension was transferred from [facility] for management of infrarenal abdominal aortic aneurysm and for vascular consultation. States she started having lower back pain since . Describes the pain as constant, sharp, 10out of 10 in intensity associated with nausea. Patient went to the emergency department at [facility] found to have hypertensive emergency with systolics above 200 and d-dimer was elevated. CT abdomenwas done which showed 3.5 infrarenal aortic aneurysm, started on Cardene drip and pain medications were given. Patient was transferred to [facility] found to be hypoxic in upper 80s, [...] Q4H PRN hydrALAZINE, 10 mg, Q6H PRN mfywsenqsz-jfwijiwptjmgw-umnlatya, 1 tablet, Q4H PRN sodium chloride flush, [...] Dwayne Hanson MD Internal Medicine Resident, PGY-1 [facility]; [place], [place] 10/15/2019, 3:09 PM Associated attestation - [...] - 10/15/2019 3:09 PM EDT Occupational Therapy [facility] Occupational Therapy Not Seen Note DATE: 10/15/2019 [...] Scheduled Treatment: Ck 10/15, as appropriate. Winifred Fostre, OT/S * Sho Tierney [employer] MATH TEACHER - 10/15/2019 1:55 PM EDT Physical Therapy Facility/Department: [facility] Daily Treatment Note [...] place: No Restraints: all rail up when MIDDLE SCHOOL MATH TEACHER left, okay with pt Therapy Time Individual Concurrent Group Co-treatment Time In 1326 Time Out 1342 Minutes 16 Timed Code Treatment Minutes: 16 Minutes Sho Tierney PTA * Willie Garcia, LABORER ELECTROPLATING - FABRICATION AND LAYOUT CRAFTSMAN - 10/15/2019 10:38 AM EDT Neurology Nurse [...] who was admitted as a transfer from [facility] 10/09/2019 where she presented with gradually worsening [...] to ensure the accuracy of this automated founder and chief executive officer, some errors in founder and chief executive officer may have occurred. * Sailaja Durán RN - 10/15/2019 9:00 AM EDT Pt straight cathed for 850 cc clear yellow urine. Tolerated well. Will continue to monitor. * Alfonso Kendrick MD - 10/15/2019 8:38 AM EDT [facility] - Progress Note Today's Date [...] antibiotics Medical Decision Making/Summary/Discussion:10/15/2019 Infection Control Recommendations [place] Precautions Antimicrobial Stewardship Recommendations Discontinuation of therapy [...] of . INITIAL HISTORY: Patient transferred from [facility] on 10-09-19 because of low back pain and findings of an infrarenal abdominal aortic aneurysm. Developed onset of back pain on 10-07-19, associated with nausea. She was evaluated at [facility] and found to have a hypertensive emergency with systolic pressures over [address] showed a 3.5 cm infrarenal aortic aneurysm. Her BP was controlled with Cardene drip and the patient was transferred to [facility]. At [facility] patient had signs of hypoxia, and an [...] file Gets together: Not on file Attends confucianism service: Not on file Active member of [...] Initial FINDINGS: CTA NECK: AORTIC ARCH/ARCH VESSELS: Sigf-yv-bsoupsqw atherosclerotic plaque at the arch arch and [...] No acute pulmonary process. Emphysema. Medical Decision Qxnbla-Rsbemcfw-Qsykv: 10/15/2019 12:10 AM - [facility] Incoming Lab Results From [facility] Specimen Information: Blood Component Collected Lab Specimen Description 10/12/2019 2:17 PM [facility] .BLOOD Special Requests 10/12/2019 2:17 PM [facility] back lt arm 3ml Culture 10/12/2019 2:17 PM [facility] NO GROWTH 3 DAYS Medical Decision Making-Other: Note: Labs, medications, radiologic studies were reviewed with personal review of films Large amounts of data were reviewed Discussed with nursing Staff, interstate planner Infection Control and Prevention measures reviewed [...] Hanson MD - 10/14/2019 1:29 PM EDT [facility] Internal Medicine Teaching Residency Program Inpatient Daily Progress Note Patient: Zachary Maynard Date of : 1945 Acct: [id number] Room: Admit date: 10/09/2019 Today's date: 10/14/19 [...] of COPD, primary hypertension was transferred from [facility] for management of infrarenal abdominal aortic aneurysm and for vascular consultation. States she started having lower back pain since . Describes the pain as constant, sharp, 10out of 10 in intensity associated with nausea. Patient went to the emergency department at [facility] to have hypertensive emergency with systolics above 200 and d-dimer was elevated. CT abdomen was done which showed 3.5 infrarenal aortic aneurysm, started on Cardene drip and pain medications we re given. Patient was transferred to [facility] found to be hypoxic in upper 80s, [...] Q4H PRN hydrALAZINE, 10 mg, Q6H PRN frwrixgmlt-hnuxldvokoltf-rpcjngtf, 1 tablet, Q4H PRN sodium chloride flush, [...] Dwayne Hanson MD Internal Medicine Resident, PGY-1 [facility]; [place], [place] 10/14/2019, 1:29 PM Associated attestation - [...] by Michelle Pelletier MD * Jose Willie, LABORER ELECTROPLATING - FABRICATION AND LAYOUT CRAFTSMAN - 10/14/2019 11:22 AM EDT Neurology Nurse [...] who was admitted as a transfer from [facility] 10/09/2019 where she presented with gradually worsening [...] to ensure the accuracy of this automated founder and chief executive officer, some errors in founder and chief executive officer may have occurred. * Alfonso Kendrick MD - 10/14/2019 10:10 AM EDT [facility] - Progress Note Today's Date [...] antibiotics Medical Decision Making/Summary/Discussion:10/14/2019 Infection Control Recommendations [place] Precautions Antimicrobial Stewardship Recommendations Discontinuation of therapy [...] of . INITIAL HISTORY: Patient transferred from [facility] on 10-09-19 because of low back pain and findings of an infrarenal abdominal aortic aneurysm. Developed onset of back pain on 10-07-19, associated with nausea. She was evaluated at [facility] and found to have a hypertensive emergency with systolic pressures over [address] showed a 3.5 cm infrarenal aortic aneurysm. Her BP was controlled with Cardene drip and the patient was transferred to [facility]. At [facility] patient had signs of hypoxia, and an [...] file Gets together: Not on file Attends confucianism service: Not on file Active member of [...] Initial FINDINGS: CTA NECK: AORTIC ARCH/ARCH VESSELS: Zftr-xo-bvlfdwdc atherosclerotic plaque at the arch arch and [...] No acute pulmonary process. Emphysema. Medical Decision Ecynhx-Bjgzpbwd-Dicll: Medical Decision Making-Other: Note: Labs, medications, radiologic studies were reviewed with personal review of films Large amounts of data were reviewed Discussed with nursing Staff, interstate planner Infection Control and Prevention measures reviewed [...] Ferris RN - 10/13/2019 10:40 PM EDT [employer] contacted internal med regarding pt complaining of lower abdominal pain. States she has to void but is unable to. Bladder scanned her just now and >999. New order for one time straight cath. Straight cath completed at 2315. 900ml clear, yellow urine out with 63ml residual. Will continue to monitor. 0430- [employer] contacted internal med regarding pt unable to void. Bladder scan shows 490. One time straight cath order placed at 0610. New bladder scan shows 571. Cath completed at 0645. 550ml clear, yellow urine out with 16ml residual. Will continue to monitor. Internal med also made aware that pt has not had bowel movement since admission. Mirilax administered. Bowel sounds active. * Linda Adhikari, MIDDLE SCHOOL MATH TEACHER - 10/13/2019 4:16 PM EDT Physical Therapy Facility/Department: [facility] 2 Daily Treatment Note NAME: [...] Hanson MD - 10/13/2019 9:30 AM EDT [facility] Internal Medicine Teaching Residency Program Inpatient Daily Progress Note Patient: Zachary Maynard Date of : 1945 Acct: [id number] Room: Admit date: 10/09/2019 Today's date: 10/13/19 Number of days in the hospital: 4 SUBJECTIVE Admitting Diagnosis: Aneurysm of infrarenal abdominal aorta (HCC) CC: Midline Lower Back Pain Pt examined at bedside. Chart & results reviewed. BP increased overnight - [employer]ity[employer]ist Graphic Editor gave Norvasc and started IV Hydralazine early [...] of COPD, primary hypertension was transferred from [facility] for management of infrarenal abdominal aortic aneurysm and for vascular consultation. States she started having lower back pain since . Describes the pain as constant, sharp, 10out of 10 in intensity associated with nausea. Patient went to the emergency department at [facility] to have hypertensive emergency with systolics above 200 and d-dimer was elevated. CT abdomen was done which showed 3.5 infrarenal aortic aneurysm, started on Cardene drip and pain medications we re given. Patient was transferred to [facility] found to be hypoxic in upper 80s, [...] Q4H PRN hydrALAZINE, 10 mg, Q6H PRN ntfflxefhk-yydpdhepjgboo-yizypfjs, 1 tablet, Q4H PRN sodium chloride flush, [...] R Valentin, MD Internal Medicine Resident, PGY-1 [facility]; [place], [place] 10/13/2019, 9:31 AM Associated attestation - [...] problems. * Overall course ; show no meter changes records clerk time. Headache is improved Blood pressure improved Ultrasound renal duplex, concerning for unilateral renal artery stenosis Patient very sleepy Has tenderness in lower back X-ray lumbar spine done at the time of admission, concerning for possible fracture Ordering MRI lumbar spine Electronically signed by Michelle Pelletier MD * Viry Morelos, FLAQUITO - FABRICATION AND LAYOUT CRAFTSMAN - 10/13/2019 8:44 AM EDT NEUROLOGY INPATIENT [...] negative for acute changes -IV Depacon 500mg [id number] x3 doses -Continued blood pressure management as [...] to ensure the accuracy of this automated founder and chief executive officer, some errors in founder and chief executive officer may have occurred. * Alfonso Kendrick MD - 10/13/2019 7:57 AM EDT [facility] - Progress Note Today's Date and Time: 10/13/2019, 7:57 AM Impression : Fever, etiology to be determined Intermittent Headaches, most likely side effect of the various medications being given for control of HTN. No apparent meningitis Low back pain Aneurysm infrarenal abdominal aorta Centrilobular emphysema Allergy to quinolones, sulfa Recommendations: Monitor off antibiotics Medical Decision Making/Summary/Discussion:10/13/2019 Infection Control Recommendations [place] Precautions Antimicrobial Stewardship Recommendations Discontinuation of therapy [...] of . INITIAL HISTORY: Patient transferred from [facility] on 10-09-19 because of low back pain and findings of an infrarenal abdominal aortic aneurysm. Developed onset of back pain on 10-07-19, associated with nausea. She was evaluated at [facility] and found to have a hypertensive emergency with systolic pressures over [address] showed a 3.5 cm infrarenal aortic aneurysm. Her BP was controlled with Cardene drip and the patient was transferred [place] [facility] At [facility] patient had signs of hypoxia, and an [...] file Gets together: Not on file Attends confucianism service: Not on file Active member of [...] Initial FINDINGS: CTA NECK: AORTIC ARCH/ARCH VESSELS: Rtog-or-lorenzof atherosclerotic plaque at the arch arch and [...] No acute pulmonary process. Emphysema. Medical Decision Jamfol-Imrobhkx-Rxcsa: Medical Decision Making-Other: Note: Labs, medications, radiologic studies were reviewed with personal review of films Large amounts of data were reviewed Discussed with nursing Staff, interstate planner Infection Control and Prevention measures reviewed All prior entries were reviewed Administer medications as ordered Prognosis: Guarded Discharge planning reviewed Follow up as outpatient. Thank you for allowing us to participate in the care of this patient. Please call with questions. Dickson Hutchinson DPM Pager: - Office: * Divina Ferris RN - 10/13/2019 3:00 AM EDT [employer] contacted internal med regarding pt blood pressure. [...] administer. New order for PO 10mg norvasc. [employer] will continue to monitor BP and pain. * Alfonso Kendrick MD - 10/12/2019 4:32 PM EDT [facility] - Progress Note Today's Date [...] cultures Medical Decision Making/Summary/Discussion:10/12/2019 Infection Control Recommendations [place] Precautions Antimicrobial Stewardship Recommendations Discontinuation of therapy [...] of . INITIAL HISTORY: Patient transferred from [facility] on 10-09-19 because of low back pain and findings of an infrarenal abdominal aortic aneurysm. Developed onset of back pain on 10-07-19, associated with nausea. She was evaluated at [facility] and found to have a hypertensive emergency with systolic pressures over [address] showed a 3.5 cm infrarenal aortic aneurysm. Her BP was controlled with Cardene drip and the patient was transferred to [facility]. At [facility] patient had signs of hypoxia, and an [...] file Gets together: Not on file Attends confucianism service: Not on file Active member of [...] Initial FINDINGS: CTA NECK: AORTIC ARCH/ARCH VESSELS: Ggkv-ya-jgphtwqm atherosclerotic plaque at the arch arch and [...] No acute pulmonary process. Emphysema. Medical Decision Ztbhki-Jihmikbc-Ylzrc: Medical Decision Making-Other: Note: Labs, medications, radiologic studies were reviewed with personal review of films Large amounts of data were reviewed Discussed with nursing Staff, interstate planner Infection Control and Prevention measures reviewed All prior entries were reviewed Administer medications as ordered Prognosis: Guarded Discharge planning reviewed Follow up as outpatient. Thank you for allowing us to participate in the care of this patient. Please call with questions. Aflonso Kendrick MD Pager: - Office: * Malissa Anderson, MIDDLE SCHOOL MATH TEACHER - 10/12/2019 2:55 PM EDT Physical Therapy [...] palliative care. No further needs. Malissa Anderson, MIDDLE SCHOOL MATH TEACHER * Montserrat Finnegan OTA - 10/12/2019 2:26 PM EDT Occupational Therapy Not Seen Note DATE: 10/12/2019 Name: Zachary Maynard : 1945 Patient not available for Occupational Therapy due to: RN cx d/t pt not feeling well and has a fever. Next Scheduled Treatment: 10/13/2019 * Denys Morris MD - 10/12/2019 1:53 PM EDT [facility] Internal Medicine Teaching Residency Program Inpatient Daily Progress Note Patient: Zachary Maynard Date of : 1945 Acct: [id number] Room: Admit date: 10/09/2019 Today's date: 10/12/19 [...] Q4H PRN hydrALAZINE, 10 mg, Q6H PRN znhenwfsxz-eddlkavmimfxv-bjrzwhos, 1 tablet, Q4H PRN sodium chloride flush, [...] Denys Morris MD Internal Medicine Resident, PGY-3 [facility]; [place], [place] 10/12/2019, 1:53 PM * Michelle Pelletier MD - 10/12/2019 1:07 PM EDT Patient seen and examined Little sleepy, clonidine discontinued Hypertension controlled Headache improved MRI brain reviewed concerning for meningioma Work-up for secondary hypertension progress * Viry Morelos, FLAQUITO - FABRICATION AND LAYOUT CRAFTSMAN - 10/12/2019 6:51 AM EDT NEUROLOGY INPATIENT [...] to ensure the accuracy of this automated founder and chief executive officer, some errors in founder and chief executive officer may have occurred. * Divina Ferris RN - 10/11/2019 10:20 PM EDT [employer] contacted internal med regarding pt headache of 3/10. Pt has IV toradol and reglan ordered. Pt is alert and oriented x2. [employer] instructed to hold IV toradol and reglan and to administer PRN tylenol for the headache. Will continue to monitor. * Divina Ferris RN - 10/11/2019 10:20 PM EDT [employer] contacted internal med regarding blood pressure 161/62 and temp of 99.9 after administering scheduled clonidine and lopressor. Pt rating headache 3/10. [employer] instructed to hold scheduled IV toradol and reglan. 0435- [employer] contacted internal med regarding BP. [employer] unable to keep SBP <160. [employer] administered PRN IV hydralazine at 2315 for a pressure in the 170s, pressure went to the 160s then back up.IV labetalol administered at 0315 for SBP in the low 180s. Pressure still in the 170s. No new orders at this time. [employer] instructed to continue to monitor. 0530- IV hydralazine and PO fioricet administered. No new orders at this time. Will continue to monitor BP. * Divina Ferris RN - 10/11/2019 10:15 PM EDT [employer] received call from Dr. Kendrick regarding pt [...] Hanson MD - 10/11/2019 2:46 PM EDT [facility] Internal Medicine Teaching Residency Program Inpatient Daily Progress Note Patient: Zachary Maynard Date of : 1945 Acct: [id number] Room: Admit date: 10/09/2019 Today's date: 10/11/19 [...] of COPD, primary hypertension was transferred from [facility] for management of infrarenal abdominal aortic aneurysm and for vascular consultation. States she started having lower back pain since . Describes the pain as constant, sharp, 10out of 10 in intensity associated with nausea. Patient went to the emergency department at [facility] to have hypertensive emergency with systolics above 200 and d-dimer was elevated. CT abdomen was done which showed 3.5 infrarenal aortic aneurysm, started on Cardene drip and pain medications we re given. Patient was transferred to [facility] found to be hypoxic in upper 80s, [...] Q4H PRN hydrALAZINE, 10 mg, Q6H PRN qbasryvrkl-symkvoxgbexzm-warxcgkq, 1 tablet, Q4H PRN sodium chloride flush, [...] Dwayne Hanson MD Internal Medicine Resident, PGY-1 [facility]; [place], [place] 10/11/2019, 2:46 PM * Michelle Pelletier [...] Ambulation Assistance: Independent Transfer Assistance: Independent Active Rubber Tester: Yes Occupation: Retired Additional Comments: pt reported [...] 10/11/2019 12:17 PM EDT Physical Therapy Facility/Department: [place] [address] Initial Assessment NAME: Zachary Maynard : 1945 [...] Ambulation Assistance: Independent Transfer Assistance: Independent Active Rubber Tester: Yes Occupation: Retired Additional Comments: pt reported [...] Orders received. * Viry Morelos APRN - FABRICATION AND LAYOUT CRAFTSMAN - 10/11/2019 7:24 AM EDT NEUROLOGY INPATIENT [...] of Toradol 15mg, Reglan 5mg, Benadryl 12.5mg [id number] x3 -Continued blood pressure management as you are doing -May consider LP through IR for persistent headache -We will follow Please note that this note was generated using a voice recognition dictation software. Although every effort was made to ensure the accuracy of this automated founder and chief executive officer, some errors in founder and chief executive officer may have occurred. * Marely Guardado RN - 10/10/2019 9:18 PM EDT Perfect served contract serviceman intermed: Patient is due to get 100mg [...] Hanson MD - 10/10/2019 11:58 AM EDT [facility] Internal Medicine Teaching Residency Program Inpatient Daily Progress Note Patient: Zachary Maynard Date of : 1945 Acct: [id number] Room: Admit date: 10/09/2019 Today's date: 10/10/19 [...] of COPD, primary hypertension was transferred from [facility] for management of infrarenal abdominal aortic aneurysm and for vascular consultation. States she started having lower back pain since . Describes the pain as constant, sharp, 10out of 10 in intensity associated with nausea. Patient went to the emergency department at [facility] to have hypertensive emergency with systolics above 200 and d-dimer was elevated. CT abdomen was done which showed 3.5 infrarenal aortic aneurysm, started on Cardene drip and pain medications we re given. Patient was transferred to [facility] found to be hypoxic in upper 80s, [...] Dwayne Hanson MD Internal Medicine Resident, PGY-1 [facility]; [place], [place] 10/10/2019, 12:00 PM * Duglas Rodrigues [...] Prieto DO - 10/09/2019 4:[address] [facility] ED Emergency Department Emergency Medicine Resident [...] a 74 y.o. Female with transfer from [place]. Low back pain since . 3.4 infrarenal [...] [] Eloped FOLLOW-UP: Adina Bunch MD [id number] [id number] DISCHARGE MEDICATIONS: New Prescriptions No medications on [...] section and content) DATE CREATED AUTHOR 08/13/2017 [facility] DATE CREATED AUTHOR AUTHOR'S ORGANIZ ATION 11/03/2019 [facility] DATE CREATED AUTHOR AUTHOR'S ORGANIZ ATION 11/29/2020 [facility] DATE CREATED AUTHOR AUTHOR'S ORGANIZ ATION 06/18/2022 [facility] DATE CREATED AUTHOR AUTHOR'S ORGANIZ ATION 04/25/2023 [facility] EPIC DATE CREATED AUTHOR AUTHOR'S ORGANIZ ATION 05/09/2023 [facility] Reason for Visit (unrecogniz ed section and content) Reason Comments Abdominal Pain Back Pain Status Reason Specialty Diagnoses / Procedures Referre d By Contact Referred To Contact Diagnoses AAA (abdominal aortic aneurysm) (HCC) Duglas Rodrigues MD [address] [place] [address] [facility] Care Teams (unrecognized sec tion and content) [...] BE BASED ON THE PRIMARY CLINICAL RECORDS. [employer] provides no warranty or guarantee of the accuracy or completeness of information in this document.
[2023-12-02 21:59] LABS: Glucometer 50 mg/dL (74-106)
[2023-12-02] MEDS: ONDANSETRON PF 4 MG/2 ML VIAL IV (22:11)
[2023-12-02] MEDS: NITROGLYCERIN 0.4 MG BOTTLE SL (22:11)
[2023-12-02] MEDS: METOPROLOL TARTRATE 25 MG TABLET 50 MG PO (22:19)
[2023-12-02] MEDS: METOPROLOL TARTRATE 25 MG TABLET PO (22:21)
[2023-12-02] MEDS: ASPIRIN 81 MG TAB.CHEW PO (22:33)
[2023-12-02] MEDS: APIXABAN 5 MG TABLET PO (22:34)
[2023-12-02] MEDS: NITROGLYCERIN 2% 1 GRAM PACKET 0.5 GM TD (22:49)
[2023-12-02 23:00] LABS: Glucometer 125 mg/dL (74-106)
[2023-12-03] VITALS (19 sets, daily range): BP systolic 102–155; BP diastolic 54–73; PULSE 49–67; TEMP 35.9–36.8; O2SAT 86–97
[2023-12-03] MEDS: TIZANIDINE HCL 4 MG TABLET PO (02:26)
[2023-12-03 02:32] LABS: Troponin I High Sensitivity 9.8 pg/mL (4.0-51.3)
[2023-12-03 06:12] LABS: Basophils Absolute Auto 0.1 10^3/uL (0.0-0.1); Basophils Percent Auto 0.9 % (0.2-2.0); Eosinophils Absolute Auto 0.2 10^3/uL (0.0-0.7); Eosinophils Percent Auto 3.2 % (0.9-7.0); Hematocrit 29.8 % (36.0-48.0); Hemoglobin 9.4 g/dL (12.0-16.0); Immature Granulocytes Abs Auto 0.04 10^3/uL (0.00-0.03); Immature Granulocytes Pct Auto 0.6 % (0.0-0.5); Lymphocytes Absolute Auto 1.9 10^3/uL (1.2-3.8); Lymphocytes Percent Auto 27.3 % (20.5-60.0); Mean Corpuscular HGB Conc 31.5 g/dL (29.9-35.2); Mean Corpuscular Hemoglobin 27.8 pg (26.7-34.0); Mean Corpuscular Volume 88.2 fL (81.0-99.0); Mean Platelet Volume 10.3 fL (9.5-13.5); Monocytes Absolute Auto 0.6 10^3/uL (0.3-0.8); Neutrophils Absolute Auto 4.2 10^3/uL (1.4-6.5); Platelet Count 298 10^3/uL (150-450); Red Blood Count 3.38 10^6/uL (4.20-5.40); Red Cell Distribution Width 15.7 % (11.0-15.0)
[2023-12-03 06:30] LABS: Alanine Aminotransferase 9 U/L (14-59); Albumin Globulin Ratio 0.8; Albumin Level 2.4 g/dL (3.4-5.0); Alkaline Phosphatase 84 U/L (46-116); Anion Gap 11.8; Aspartate Amino Transferase 10 U/L (15-37); BUN Creatinine Ratio 11.3; Bilirubin Total 0.5 mg/dL (0.2-1.0); Calcium 8.7 mg/dL (8.5-10.1); Carbon Dioxide 26.4 mmol/L (21.0-32.0); Chloride 104 mmol/L (98-107); Estimated GFR (African America 43 (>=60 mL/min/1.73m^2); Estimated GFR (Non-African Ame 36 (>=60 mL/min/1.73m^2); Globulin 2.9 g/dL; Glucose 117 mg/dL (74-106); Magnesium 2.3 mg/dL (1.8-2.4); Potassium 4.2 mmol/L (3.5-5.1); Sodium 138 mmol/L (136-145); Total Protein 5.3 g/dL (6.4-8.2)
[2023-12-03 06:46] LABS: Troponin I High Sensitivity 9.6 pg/mL (4.0-51.3)
--- NOTE | 2023-12-03 08:02 | CT_ITS ---
[address] [address] Patient Name: ZACHARY MAYNARD MRN: [id number] date: 1945 Sex: F Assigned Patient Location: [place] Current Patient Location: [place] Accession/Order Number: [id number] Exam Date: 12/03/2023 08:20 Report Date: 12/03/2023 08:56 At the request of: ADINA BUNCH Procedure: CT angio chest EXAMINATION: CT angio chest HISTORY: aortic dissection - requested by cardiology COMPARISON: No relevant comparison available. TECHNIQUE: Multi-planar CT images were created with IV contrast. Axial, Coronal, and Sagittal images. Dose reduction techniques were achieved by using automated exposure control and/or adjustment of mA and/or kV according to patient size and/or use of iterative reconstruction technique. FINDINGS: LUNGS: Mild centrilobular and paraseptal emphysema with an right upper lobe predominance. Scattered subcentimeter patchy nodular densities throughout both lungs most significant in the left lower lobe. PLEURA: No mass, effusion, or pneumothorax. VASCULATURE: Normal postcontrast opacification of the central pulmonary arterial tree with no filling defect to suggest a pulmonary embolus STEVEN: Bilateral hilar lymph nodes MEDIASTINUM: No mass or adenopathy. CARDIAC: No enlargement or pericardial effusion Coronary arteries: Moderate calcifications AORTA: Extensive soft and calcific atherosclerosis. No aortic dissection. Aneurysm of the aortic arch measuring a maximum of 3.3 cm coronal image 44. CHEST WALL: No mass or axillary adenopathy. BONES: No bone lesion or fracture. LIMITED ABDOMEN: No suspicious findings. Limited images of the upper abdomen. OTHER: Negative. CT/CT angio chest IMPRESSION: No central pulmonary thromboembolic disease No aortic dissection. 3.3 cm aortic arch aneurysm with extensive atherosclerosis Electronically authenticated by: VALERIO HOOKER Date: 12/03/2023 08:56
--- NOTE | 2023-12-03 08:07 | P.HP_ITS ---
HPI H&P: HPI History of Present Illness Chief complaint: Chest Pain Narrative: Patient well-known to me from long-term care at the office as well as recurrent hospitalizations recently for chest pain and patient found to have an atrial fibrillation with rapid ventricular response with intermittent episodes. She called the office yesterday having increasing chest pain. She had a recent site monitor that showed recurrent ventricular tachycardia. With the chest pain she was referred to the emergency room. She also had elevated troponins last time she was admitted with her episode of atrial fib with rapid ventricular response. She did see cardiology yesterday morning the plan was to set her up for an outpatient cardiac catheterization. Began with a recurrent chest pain in the afternoon she was referred to the ER. And worked up overnight When I saw patient up on the medical surgical floor, she was resting comfortably in bed, she still has intermittent pain radiating into her back. The pain feels deep to her. On exam it is not reproducible. Opioid HPI Opioid Management Most Recent Pain and Opioid Data: Last Pain Scale 8 12/03/23 08:15 Last Pain Assessment 12/03/23 08:15 Last ORT Total Score 0 12/02/23 21:33 Last ORT Risk Category Low Risk 12/02/23 21:33 Review of Systems ROS Status of ROS 10 or more systems reviewed and unremark able except as noted in history and below [facility] Medical History (Updated 12/03/23 @ 08:36 by Velasquez Langley MD) Essential (primary) hypertension ?I10 - Essential (primary) hypertension (ICD-10) ZAVALA (dyspnea on exertion) ?R06.09 - Other forms of dyspnea (ICD-10) Elevated troponin level not due myocardial infarction ?R79.89 - Other specified abnormal findings of blood chemistry (ICD-10) Atrial fibrillation ?I48.91 - Unspecified atrial fibrillation (ICD-10) Dehydration ?E86.0 - Dehydration (ICD-10) Upper respiratory infection ?J06.9 - Acute upper respiratory infection, unspecified (ICD-10) COPD (chronic obstructive pulmonary disease) ?J44.9 - Chronic obstructive pulmonary disease, unspecified (ICD-10) History of uterine cancer ?Z85.42 - Personal history of malignant neoplasm of other parts of uterus (ICD-10) Edema ?R60.9 - Edema, unspecified (ICD-10) Diabetes ?E11.9 - Type 2 diabetes mellitus without complications (ICD-10) HTN (hypertension) ?I10 - Essential (primary) hypertension (ICD-10) Surgical History H/O: hysterectomy ?Z90.710 - Acquired absence of both cervix and uterus (ICD-10) Family History Father Family history of cancer Family history of COPD (chronic obstructive pulmonary disease) Mother Family history of diabetes mellitus Family history of hypertension Family history of myocardial infarction Family history of CHF (congestive heart failure) Social History (Updated 11/26/23 @ 14:13 by Darlyn Sterling RN) Within the past year, how often did you have a drink containing alcohol: never Score interpretation: A score less than 3 is consistent with normal alcohol consumption. Smoking status: Former smoker Non-prescribed substance use: denies use Highest level of school completed/degree received: 10th grade Little interest or pleasure in doing things: not at all Feeling down, depressed, or hopeless: not at all Meds Home Medications and Allergies Home Medications ?Medication ?Instructions ?Recorded ?Confirmed ?Type albuterol sulfate 90 mcg/actuation 2 puff inhalation Q4H PRN 11/23/23 12/02/23 History aerosol inhaler shortness of breath or wheezing apixaban 5 mg tablet (Eliquis) 5 mg PO BID #60 tabs 11/28/23 12/02/23 Rx metoprolol tartrate 25 mg tablet 50 mg (2 x 25 mg) PO BID #60 tabs 11/28/23 12/02/23 Rx amiodarone 200 mg tablet 200 mg PO DAILY 12/02/23 12/02/23 History empagliflozin 10 mg tablet 10 mg PO DAILY 12/02/23 12/02/23 History (Jardiance) ezetimibe 10 mg tablet 10 mg PO DAILY 12/02/23 12/02/23 History furosemide 20 mg tablet mg 12/02/23 History hydrochlorothiazide 25 mg tablet 50 mg PO DAILY 12/02/23 12/03/23 History memantine 28 mg capsule 28 mg PO DAILY 12/02/23 12/03/23 History sprinkle,extended release 24hr metformin 500 mg tablet,extended 500 mg PO BID 12/02/23 12/03/23 History release 24 hr ropinirole 0.5 mg tablet 0.5 mg PO .QHS 12/02/23 12/03/23 History tiotropium bromide 2.5 2 puff inhalation DAILY 12/02/23 12/03/23 History mcg/actuation mist for inhalation (Spiriva Respimat) metoprolol tartrate 50 mg tablet 50 mg PO BID 12/03/23 12/03/23 History Allergies Allergy/AdvReac Type Severity Reaction Status Date / Time meperidine [From Demerol] Allergy Severe Anaphylaxis Verified 12/02/23 17:27 Exam Constitutional Vital Signs, click to edit/add: Last Vital Signs Temp 96.6 F L 12/03/23 07:41 Pulse 57 L 12/03/23 07:56 Resp 12 12/03/23 07:47 BP 102/54 12/03/23 07:41 Pulse Ox 97 12/03/23 07:41 O2 Del Method Nasal Cannula 12/03/23 07:41 O2 Flow Rate 2 12/03/23 07:41 Documenting provider has reviewed patient's vital signs: yes Common normals: no apparent distress Chest Common normals: inspection of chest normal (Palpation of the upper back does not reproduce her pain.) Respiratory Common normals: normal respiratory effort and no retractions Auscultation: no rhonchi Cardio Common normals: regular rate, regular rhythm and no murmurs Extremity Common normals: no clubbing, cyanosis or edema Results Labs Labs: Short CBC 12/02/23 12/03/23 Range/Units 17:20 05:48 WBC 7.6 7.0 (4.0-11.0) 10^3/uL Hgb 11.0 L 9.4 L (12.0-16.0) g/dL Hct 34.4 L 29.8 L (36.0-48.0) % Plt Count 327 298 (150-450) 10^3/uL BMP 12/02/23 12/03/23 17:20 05:48 Sodium 139 138 Potassium 3.7 4.2 Chloride 102 104 Carbon Dioxide 27.8 26.4 BUN 13.0 16.0 Creatinine 1.29 H 1.41 H Glucose 143 H 117 H Calcium 9.5 8.7 Liver Function 12/03/23 Range/Units 05:48 Total Bilirubin 0.5 (0.2-1.0) mg/dL AST 10 L (15-37) U/L ALT 9 L (14-59) U/L Alkaline Phosphatase 84 (46-116) U/L Albumin 2.4 L (3.4-5.0) g/dL Assessment and Plan Assessment and Plan (1) Hypertension: (2) Non-sustained ventricular tachycardia: (3) Chest pain: (4) ZAVALA (dyspnea on exertion): (5) Elevated troponin level not due myocardial infarction: (6) Atrial fibrillation: Qualifiers: Atrial fibrillation type: paroxysmal Qualified Code(s): I48.0 - Paroxysmal atrial fibrillation (7) COPD (chronic obstructive pulmonary disease): (8) Diabetes: (9) Systolic heart failure: (10) Severe protein-calorie malnutrition: Plan Admission findings: Uncontrolled hypertension, normal EKG but chest pain with exertion, not reproducible pain on exam, consistent with unstable angina. Unstable angina with acute systolic heart failure-discussed with cardiology, will check CTA of chest to rule out aortic dissection, IV hydration after that, if stable later this afternoon and no further episodes of chest pain with the starting of Imdur, she can be discharged to home and plan for heart cath as an outpatient tomorrow. If patient becomes unstable will transfer to [facility] today. Chest pain radiating to the back-will check CTA of chest, will need 1 L of fluids post CTA so patient can have heart cath tomorrow without affecting kidney function further Chronic kidney disease stage II-is somewhat elevated today. IV fluids as outlined above Dementia-maintain current medications COPD-maintain current medications patient well-controlled Atrial fibrillation-controlled ventricular response currently. Maintain anticoagulation, will need to hold anticoagulation for heart cath tomorrow Ventricular tachycardia-maintain patient on monitor, likely ischemic so the addition of Imdur should improve, maintain amiodarone Severe protein calorie malnutrition-diet management L Uncontrolled hypertension on admission-improved this morning, likely to improve further with the addition of Imdur NIDDM-insulin sliding scale Admission status: Patient with recurrent admissions secondary to unstable angina resulting in chest pain and ventricular tachycardia, unable to control as an outpatient, EKG without significant acute findings, does have acute systolic heart failure, inpatient status.
--- NOTE | 2023-12-03 09:22 | CM.NOTE ---
Message sent to Dr. Langley regarding progress note states inpatient status, no order. Pt is in OBS bed at this time.
[2023-12-03] MEDS: AMIODARONE HCL 200 MG TABLET PO (09:39)
[2023-12-03] MEDS: 0.9 % SODIUM CHLORIDE 1,000 ML 200 ML IV (09:39)
[2023-12-03] MEDS: ISOSORBIDE MONONITRATE 30 MG TAB.ER.24H PO (09:39)
[2023-12-03] MEDS: EZETIMIBE 10 MG TABLET PO (09:39)
[2023-12-03] MEDS: ENSURE HP 237 ML LIQUID PO (09:39)
[2023-12-03] MEDS: METOPROLOL TARTRATE 25 MG TABLET 50 MG PO (09:39)
--- OUTSIDE RECORDS SUMMARY | 2023-12-03 10:28 | XMS_ITS | CCD ---
Author Organization [facility] Care Team Providers Care Weigher And Mixer Name Role Phone ADINA BUNCH Unavailable Unavailable DALTON, RACHAEL K Unavailable Unavailable ALTON, MICHELLE Unavailable Unavailable ALTON, MICHELLE Unavailable Unavailable Adina Bunch Primary Care Provider [phone] JUDIE, DUGLAS S Admitting Unavailable JUDIE, DUGLAS [...] Unavailable MD Adina Bunch Primary Care Provider [phone] MD Anju Lees Attending Provider [phone] CURRY LOVING Attending Unavailable CURRY LOVING Attending [...] reactions to drug 4 Unknown Reaction, Rash [place], [place] (4 sources) Ciprofloxacin Drug Allergy 8 Vomiting [place] (1 source) Hmg-Coa Reductase Inhibitors (Statins) Propensity to adverse reactions to drug 8 [place] (4 sources) Meperidine Drug Allergy 8 Anaphylaxis [place] (4 sources) moxifloxacin Drug Allergy 8 Anaphyl[place] (4 sources) Nalbuphine Drug Allergy 8 Unknown Reaction, Itching [place] (4 sources) Promethazine Drug Allergy 8 Unknown Reaction [place] (1 source) Sulfonamides (Antibiotic) Propensity to adverse reactions to drug 8 [place] (2 sources) black walnut pollen extract Drug Allergy 4 [facility] (2 sources) Ciprofloxacin Drug Allergy [address] [facility] (2 sources) Levamisole Drug Allergy 4 [facility] (2 sources) Meperidine Drug Allergy 4 [facility] (2 sources) moxifloxacin Drug Allergy 4 [facility] (2 sources) Nalbuphine Drug Allergy 4 [facility] (1 source) Sulfonamides (Antibiotic) Drug allergy (disorder) 7 [facility] (4 sources) Sulfacetamide; 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: [sulfacetamide] Drug Allergy 4 Unknown Reaction, Itching [facility] (4 sources) Sulfur; 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: [sulfur] Drug Allergy 4 Unknown Reaction [facility] (4 sources) Haycsef-OIM-BfO Reductase Inhibitor; 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: [Mzejpin-PLD-CsJ Reductase Inhibitor] Allergy to substance 4 Unknown Reaction [facility] (1 source) Ciprofloxacin Drug Allergy 4 [facility] (1 source) Meperidine Drug Allergy 4 [facility] (1 source) moxifloxacin Drug Allergy 4 [facility] (1 source) Nalbuphine Drug Allergy 4 [facility] (1 source) Promethazine Drug Allergy 4 [facility] Medications Current Medications Medication [...] Central Nervous System Stimulant, Methylxanthine Start: 10-10-2019 osznmbhoog-lfzzelsazrahy-rav feine (FIORICET, ESGIC) per tablet 1 tablet [id number] 200 actuat albuterol 0.09 mg/actuat metered dose [...] tablet 3 10/16/2019 Active Start: 10-11-2019 lisinopril (MI INIVIL;ZESTRIL) tablet 40 mg Start: 10-10-2019 End: [...] mg extended release oral capsule (3 sources) S-ywtnaf-U-aspartate Receptor Antagonist Start: 04-08-2023 take 28 mg [...] disintegrating tablet 4 mg polyethylene glycol 3350 94329 mg powder for oral solution (3 sources) [...] spironolactone (ALDACTONE) t ablet 50 mg Vit C,B-Ff-Qwvhy-Lutein-Zeax an (Preservision Areds-2) 250-90-40-1 mg capsule (1 source) Start: 04-17-2023 Vit C,S-Bs-Hqpak-Lutein-Zeax an (Preservision Areds-2) 250-90-40-1 mg capsule Active [...] 0 04-24-2023 Commemt1 Glu2: Cleaned Meter Normal [facility] Comment on above: Result Comment: PERF ORMED BY: [facility] [address] [place] [address] PATHOLOGIST [employer] MARKELL WILDE M.D. Performed By: #### G LULS #### Point of Care testing , Glucose [Mass/Vol] 95 mg/dL Normal [facility] Comment on above: Result Comment: [place] Glucose Reference Range is dependent on time and content of last meal. Glucose of more than 200 mg/dL in a nonstressed, ambulatory subject supports the diagnosis of Diabetes Mellitus. Performed By: #### G LULS #### Point of Care testing , Alanine aminotransferase [En zymatic activity/volume] in Serum or PlasmaOrdered By: Anju Lees on 04-17-2023 ALT [Catalytic activity/Vol] 11 U/L 7-52 [facility] Albumin [Mass/volume] in Ser um or Plasma by Bromocresol green (BCG) dye binding methoOrdered By: Anju Lees on 04-17-2023 Albumin BCG dye [Mass/Vol] 3.7 g/dL 3.5-5.7 [facility] Alkaline phosphatase [Enzyma tic activity/volume] in Serum or PlasmaOrdered By: Anju Lees on 04-17-2023 ALP [Catalytic activity/Vol] 110 U/L 34-104 [facility] Aspartate aminotransferase [ Enzymatic activity/volume] in Serum or PlasmaOrdered By: Anju Lees on 04-17-2023 AST [Catalytic activity/Vol] 16 U/L 13-39 [facility] Basophils Auto (Bld) [#/Vol] Ordered By: Anju Lees on 04-17-2023 Basophils (Bld) [#/Vol] 0.1 10*3/uL 0.0-0.2 [facility] Basophils/100 WBC Auto (Bld) Ordered By: Anju Lees on 04-17-2023 Basophils/100 WBC (Bld) 0.6 % . [facility] Bilirubin.total [Mass/volume ] in Serum or PlasmaOrdered By: Anju Lees on 04-17-2023 Bilirubin [Mass/Vol] 0.5 mg/dL 0.3-1.0 [facility] CMP with reflex to A1Con Albumin [Mass/Vol] 3.7 g/dL Normal 3.5-5.7 [facility] Comment on above: Performed By: #### C MP wRFX A1C, CBC #### [facility] [address] Albumin/Globulin [Mass ratio] 1.9 {ratio} Normal [facility] Comment on above: Performed By: #### C MP wRFX A1C, CBC #### [facility] [address] ALP [Catalytic activity/Vol] 110 U/L High 34-104 [facility] Comment on above: Result Comment: PERF ORMED BY: [place] [address] PATHOLOGIST [employer] MARKELL WILDE M.D. Performed By: #### C MP wRFX A1C, CBC #### [facility] [address] [place] [address] [place] ALT [Catalytic activity/Vol] 11 U/L Normal 7-52 [facility] Comment on above: Performed By: #### C MP wRFX A1C, CBC #### [facility] [address] [place] [address] [place] Anion gap [Moles/Vol] 10.3 mmol/L Normal 6.0-15.0 [facility] Comment on above: Performed By: #### C MP wRFX A1C, CBC #### [facility] [address] [place] [address] [place] AST [Catalytic activity/Vol] 16 U/L Normal 13-39 [facility] Comment on above: Performed By: #### C MP wRFX A1C, CBC #### [facility] [address] Bilirubin [Mass/Vol] 0.5 mg/dL Normal 0.3-1.0 [facility] Comment on above: Performed By: #### C MP wRFX A1C, CBC #### [facility] [address] Calcium [Mass/Vol] 9.5 mg/dL Normal 8.6-10.3 [facility] Comment on above: Performed By: #### C MP wRFX A1C, CBC #### [address] Chloride [Moles/Vol] 102 mmol/L Normal 98-107 [facility] Comment on above: Performed By: #### C MP wRFX A1C, CBC #### [facility] [address] [place] [address] CO2 [Moles/Vol] 31.9 mmol/L High 21.0-31.0 [facility] Comment on above: Performed By: #### C MP wRFX A1C, CBC #### [address] Creatinine [Mass/Vol] 1.01 mg/dL Normal 0.60-1.20 [facility] Comment on above: Performed By: #### C MP wRFX A1C, CBC #### [facility] [address] [place] [address] [place] GFR/1.73 sq M.predicted MDRD (S/P/Bld) [Vol rate/Area] 56.627 mL/min/{1.73_m2} [facility] Comment on above: Performed By: #### C MP wRFX A1C, CBC #### [facility] [address] [place] [address] Globulin (S) [Mass/Vol] 2.0 g/dL [facility] Comment on above: Performed By: #### C MP wRFX A1C, CBC #### [facility] [address] [place] [address] [place] Glucose [Mass/Vol] 89 mg/dL Normal 70-100 [facility] Comment on above: Performed By: #### C MP wRFX A1C, CBC #### [facility] [address] [place] [id number] [place] Potassium [Moles/Vol] 4.2 mmol/L Normal 3.5-5.1 [facility] Comment on above: Performed By: #### C MP wRFX A1C, CBC #### [facility] [address] Protein [Mass/Vol] 5.7 g/dL Low 6.4-8.9 [facility] Comment on above: Performed By: #### C MP wRFX A1C, CBC #### [facility] [address] [place] [address] [place] Sodium [Moles/Vol] 140 mmol/L Normal 136-145 [facility] Comment on above: Performed By: #### C MP wRFX A1C, CBC #### [facility] [address] [place] [id number] [place] Urea nitrogen [Mass/Vol] 23 mg/dL Normal 7-25 [facility] Comment on above: Performed By: #### C MP wRFX A1C, CBC #### [facility] [address] [place] [id number] [place] Calcium [Mass/volume] in Ser um or PlasmaOrdered By: Anju Lees on 04-17-2023 Calcium [Mass/Vol] 9.5 mg/dL 8.6-10.3 [facility] Carbon dioxide, total [Moles /volume] in Serum or PlasmaOrdered By: Anju Lees on 04-17-2023 CO2 [Moles/Vol] 31.9 mmol/L 21.0-31.0 [facility] Chloride [Moles/volume] in S martita or PlasmaOrdered By: Anju Lees on 04-17-2023 Chloride [Moles/Vol] 102 mmol/L 98-107 [facility] Complete Blood Count Auto Di ffon 04-17-2023 Basophils (Bld) [#/Vol] 0.1 10*3/uL Normal 0.0-0.2 [facility] Comment on above: Result Comment: PERF ORMED BY: [place] [address] PATHOLOGIST [employer] MARKELL WILDE M.D. Performed By: #### C MP wRFX A1C, CBC #### [facility] [address] [place] [address] Basophils/100 WBC (Bld) 0.6 % Normal . [facility] Comment on above: Performed By: #### C MP wRFX A1C, CBC #### [address] Eosinophils (Bld) [#/Vol] 0.3 10*3/uL Normal 0.0-0.45 [facility] Comment on above: Performed By: #### C MP wRFX A1C, CBC #### [address] Eosinophils/100 WBC (Bld) 3.1 % Normal . [facility] Comment on above: Performed By: #### C MP wRFX A1C, CBC #### [address] Erythrocyte distribution width (RBC) [Ratio] 16.3 % High 11.9-15.3 [facility] Comment on above: Performed By: #### C MP wRFX A1C, CBC #### [facility] [address] [place] [address] Hematocrit (Bld) [Volume fraction] 33.3 % Low 34.0-46.4 [facility] Comment on above: Performed By: #### C MP wRFX A1C, CBC #### [address] Hemoglobin (Bld) [Mass/Vol] 11.1 g/dL Low 11.8-15.4 [facility] Comment on above: Performed By: #### C MP wRFX A1C, CBC #### [address] [place] [address] [place] Lymphocytes (Bld) [#/Vol] 2.1 10*3/uL Normal 1.00-4.8 [facility] Comment on above: Performed By: #### C MP wRFX A1C, CBC #### [facility] [address] Lymphocytes/100 WBC (Bld) 22.7 % Normal . [facility] Comment on above: Performed By: #### C MP wRFX A1C, CBC #### [address] MCH (RBC) [Entitic mass] 27.9 pg Normal 24.7-34.3 [facility] Comment on above: Performed By: #### C MP wRFX A1C, CBC #### [address] MCV (RBC) [Entitic vol] 83.3 fL Normal 80-100 [facility] Comment on above: Performed By: #### C MP wRFX A1C, CBC #### [address] Mean Corpuscular HGB Conc 33.4 g/dL Normal 32.0-35.0 [facility] Comment on above: Performed By: #### C MP wRFX A1C, CBC #### [address] Monocytes (Bld) [#/Vol] 0.6 10*3/uL Normal 0.0-0.8 [facility] Comment on above: Performed By: #### C MP wRFX A1C, CBC #### [place] [address] [place] Monocytes/100 WBC (Bld) 6.5 % Normal . [facility] Comment on above: Performed By: #### C MP wRFX A1C, CBC #### [address] Neutrophils (Bld) [#/Vol] 6.1 10*3/uL Normal 1.8-7.7 [facility] Comment on above: Performed By: #### C MP wRFX A1C, CBC #### [facility] [address] Neutrophils/100 WBC (Bld) 67.1 % Normal . [facility] Comment on above: Performed By: #### C MP wRFX A1C, CBC #### [facility] [address] NRBC% 0.1 /100{WBC} Normal 0-0.5 [facility] Comment on above: Performed By: #### C MP wRFX A1C, CBC #### [facility] [address] Platelet mean volume (Bld) [Entitic vol] 8.7 fL Normal 6.3-10.7 [facility] Comment on above: Performed By: #### C MP wRFX A1C, CBC #### [facility] [address] Platelets (Bld) [#/Vol] 249 10*3/uL Normal 150-450 [facility] Comment on above: Performed By: #### C MP wRFX A1C, CBC #### [facility] [address] RBC (Bld) [#/Vol] 4.00 10*6/uL Normal 3.60-5.00 [facility] Comment on above: Performed By: #### C MP wRFX A1C, CBC #### [facility] [address] [place] [address] [place] WBC (Bld) [#/Vol] 9.1 10*3/uL Normal 3.8-11.6 [facility] Comment on above: Performed By: #### C MP wRFX A1C, CBC #### [facility] [address] [place] [address] [place] Creatinine [Mass/volume] in Serum or PlasmaOrdered By: Anju Lees on 04-17-2023 Creatinine [Mass/Vol] 1.01 mg/dL 0.60-1.20 [facility] ECG 12 lead ECGon 04-17-2023 ECG 12 lead ECG [facility] [place] [address] [place] [address] Electrocardiograph Report Signed Patient: Zachary Maynard MR#: [id number] : 1945 Acct:[id number] Age/Sex: 77 / F ADM Date: 04/17/23 Loc: Room: Type: [facility] Attending Dr: Anju Lees MD Ordering Provider: [...] previous ECGs available Confirmed by [facility]AILEE MACIAS [id number] on 04/17/2023 3:12:20 PM Referred By: FREDDY Electronically Signed By:JASON MARIE MD [facility] Transcribed By: MUS Signed By Bonifacio Marie MD 04/17/23 1512 Normal [facility] Eosinophils Auto (Bld) [#/Vo l]Ordered By: Anju Lees on 04-17-2023 Eosinophils (Bld) [#/Vol] 0.3 10*3/uL 0.0-0.45 [facility] Eosinophils/100 WBC Auto (Bl d)Ordered By: Anju Lees on 04-17-2023 Eosinophils/100 WBC (Bld) 3.1 % . [facility] Erythrocyte distribution wid th Auto (RBC) [Ratio]Ordered By: Anju Lees on 04-17-2023 Erythrocyte distribution width (RBC) [Ratio] 16.3 % 11.9-15.3 [facility] Globulin Calc (S) [Mass/Vol] Ordered By: Anju Lees on 04-17-2023 Globulin (S) [Mass/Vol] 2.0 g/dL [facility] Glucose [Mass/volume] in Ser um or PlasmaOrdered By: Anju Lees on 04-17-2023 Glucose [Mass/Vol] 89 mg/dL 70-100 [facility] Hematocrit Auto (Bld) [Volum e fraction]Ordered By: Anju Lees on 04-17-2023 Hematocrit (Bld) [Volume fraction] 33.3 % 34.0-46.4 [facility] Hemoglobin [Mass/volume] in BloodOrdered By: Anju Lees on 04-17-2023 Hemoglobin (Bld) [Mass/Vol] 11.1 g/dL 11.8-15.4 [facility] Leukocytes [#/volume] correc lovely for nucleated erythrocytes in Blood by Automated counOrdered By: Anju Lees on 04-17-2023 WBC corrected for nucl RBC Auto (Bld) [#/Vol] 9.1 10*3/uL 3.8-11.6 [facility] Lymphocytes Auto (Bld) [#/Vo l]Ordered By: Anju Lees on 04-17-2023 Lymphocytes (Bld) [#/Vol] 2.1 10*3/uL 1.00-4.8 [facility] Lymphocytes/100 WBC Auto (Bl d)Ordered By: Anju Lees on 04-17-2023 Lymphocytes/100 WBC (Bld) 22.7 % . [facility] MCH Auto (RBC) [Entitic mass ]Ordered By: Anju Lees on 04-17-2023 MCH (RBC) [Entitic mass] 27.9 pg 24.7-34.3 [facility] MCHC Auto (RBC) [Mass/Vol]Or dered By: Anju Lees on 04-17-2023 MCHC (RBC) [Mass/Vol] 33.4 g/dL 32.0-35.0 [facility] MCV Auto (RBC) [Entitic vol] Ordered By: Anju Lees on 04-17-2023 MCV (RBC) [Entitic vol] 83.3 fL 80-100 [facility] Monocytes Auto (Bld) [#/Vol] Ordered By: Anju Lees on 04-17-2023 Monocytes (Bld) [#/Vol] 0.6 10*3/uL 0.0-0.8 [facility] Monocytes/100 WBC Auto (Bld) Ordered By: Anju Lees on 04-17-2023 Monocytes/100 WBC (Bld) 6.5 % . [facility] Neutrophils Auto (Bld) [#/Vo l]Ordered By: Anju Lees on 04-17-2023 Neutrophils (Bld) [#/Vol] 6.1 10*3/uL 1.8-7.7 [facility] Neutrophils/100 WBC Auto (Bl d)Ordered By: Anju Lees on 04-17-2023 Neutrophils/100 WBC (Bld) 67.1 % . [facility] No Panel InformationOrdered By: Anju Lees on 04-17-2023 Estimated GFR (CKD-EPI) 56.627 mL/Min [facility] Pharmacy Creatinine Clearance (Chem N/A [facility] Nucleated erythrocytes [Pres ence] in Blood by Automated countOrdered By: Anju Lees on 04-17-2023 Nucleated RBC Auto Ql (Bld) 0.1 /100{WBC} 0-0.5 [facility] Platelet mean volume Auto (B ld) [Entitic vol]Ordered By: Anju Lees on 04-17-2023 Platelet mean volume (Bld) [Entitic vol] 8.7 fL 6.3-10.7 [facility] Platelets Auto (Bld) [#/Vol] Ordered By: Anju Lees on 04-17-2023 Platelets (Bld) [#/Vol] 249 10*3/uL 150-450 [facility] Potassium [Moles/volume] in Serum or PlasmaOrdered By: Anju Lees on 04-17-2023 Potassium [Moles/Vol] 4.2 mmol/L 3.5-5.1 [facility] Protein [Mass/volume] in Ser um or PlasmaOrdered By: Anju Lees on 04-17-2023 Protein [Mass/Vol] 5.7 g/dL 6.4-8.9 [facility] RBC Auto (Bld) [#/Vol]Ordere d By: Anju Lees on 04-17-2023 RBC (Bld) [#/Vol] 4.00 10*6/uL 3.60-5.00 [facility] Serum or plasma albumin/glob ulin mass ratioOrdered By: Anju Lees on 04-17-2023 Albumin/Globulin [Mass ratio] 1.9 {ratio} [facility] Serum or plasma anion gap de terminationOrdered By: Anju Lees on 04-17-2023 Anion gap [Moles/Vol] 10.3 mmol/L 6.0-15.0 [facility] Sodium [Moles/volume] in Ser um or PlasmaOrdered By: Anju Lees on 04-17-2023 Sodium [Moles/Vol] 140 mmol/L 136-145 [facility] Urea nitrogen [Mass/volume] in Serum or PlasmaOrdered By: Anju Lees on 04-17-2023 Urea nitrogen [Mass/Vol] 23 mg/dL 7-25 [facility] WBC Auto (Bld) [#/Vol]Ordere d By: Anju Lees on 04-17-2023 WBC (Bld) [#/Vol] 9.1 10*3/uL 3.8-11.6 [facility] XR hand RT min 3V*on 024 XR hand RT min 3V* [facility] [place] [address] XRay Report Signed Patient: Zachary Maynard MR#: [id number] : 1945 Acct:[id number] Age/Sex: 77 / F ADM Date: 04/08/23 Loc: [facility] [place] Room: Type: [facility] Attending Dr: Anju Lees MD Copies to: [...] Sammie Arizmendi M.D.04/08/2023 1:57 PM Dictation Location: [employer] Transcribed By: AUSTIN 04/08/23 135 Dictated By: Sammie Arizmendi MD 04/08/231352 Signed By: 04/08/231356 [facility] ECHOCARDIO M/2D COMPLETEon 0 05-29-2022 ECHOCARDIO M/2D COMPLETE Patient: ZACHARY MAYNARD Exam Date: 05/29/2022 : 1945 Gender:F Ordering : DR ADINA BUNCH . Admission #: [id number] Family : Order #: [id number] CLICK HERE TO VIEW EXAM ECHOCARDIOGRAM REPORT [...] Shore M.D. on 05/30/2022 at 18:32 Normal [facility] MRI BRAIN WO CONon MRI BRAIN [...] RENATA GAYTAN Date: 2022-05-29 13:51 Normal [facility] US CAROTID ART BILon 023 US [...] RENATA GAYTAN Date: 2022-05-29 12:55 Normal [facility] Cov[facility]-19 PCR ([facility]on 01-24 SARS-CoV-2 (COVID-19) RNA ARMIN+probe Ql (Unsp spec) Not detected Normal NOT DETECTED [facility] Comment on above: Result Comment: This test is not yet approved or cleared by the [place] FDA. When there are no FDA-approved or cleared tests available, and other criteria are met, FDA can make tests available under an emergency access mechanism called an Emergency Use Authorization (EUA). The EUA for this test is supported by the [employer] of Health and Human Service's (HHS's) declaration [...] consistent with SARS-CoV-2. Performed By: #### [facility] #### [facility] [address] [place] [address] Dr. Samuel Kang Ambulatory Clinical Summaryo n 09-11-2020 Ambulatory Clinical Summary {[id number] }[id number] Normal [facility] Patient Educationon 09-12-19 21 Patient Education [...] could (more content not included)... Normal [facility] Urology Office/Clinic Noteon 09-11-2020 Urology Office/Clinic [...] MD, Jude Farias URO In 6 months [id number] Additional Instructions: Patient Education Calorie Counting for [...] (COVID-19) mR (more content not included)... Normal [facility] Comment on above: Result Comment: Elec tronically Signed By: Thuan ARMANDO MD\.br\Date and Time Signed: 09/11/20 16:11 EDT\.br\Electronically Co-Signed By: Anastasia Cabral\.br\Date and Time Co-Signed: 09/11/20 16:08 EDT Ambulatory Clinical Summaryo n 08-08-2020 Ambulatory Clinical Summary {[id number] }[id number] [facility] Patient Educationon 08-09-19 21 Patient Education Urology [...] stimulation). ? For women, using a medical scheduler to prevent urine leaks. This is a [...] after experiencing incontinence. General instructions ? Take zfqv-rfz-ejtlkal and prescription medicines only as (more content not included)... Normal [facility] Urology Office/Clinic Noteon 08-08-2020 Urology Office/Clinic [...] MD, Jude Farias, URO [address] [place] [address]- Additional Instructions: 1mos. f/u Patient Education Urinary [...] of urethral (more content not included)... Normal [facility] Comment on above: Result Comment: Elec tronically Signed By: Tushar Nunez MD, Jude Farias\.br\Date and Time Signed: 08/08/20 11:28 EDT\.br\Electronically Co-Signed By: Kisha Stevens MA\.br\Date and Time Co-Signed: 08/08/20 11:15 EDT Operative Reporton Operative Report [id number]#1.00CD: 127 [facility] Pathology Noteon 07-27-2020 Pathology Note [id number]#1.00CD :127 [facility] Comment on above: Result Comment: Elec tronically Signed By: Tushar Nunez MD, Jude Farias\.br\Date and Time Signed: 08/07/20 11:22 EDT ECG 12-Leadon 07-24-2020 ECG 12-Lead [id number]#1.00CD: 127 [facility] ED Note-Physicianon 07-25-19 ED Note-Physician [id number]#1.00CD:1 27 [facility] Lab Reportson 07-24-2020 Lab Reports [id number]#1.00CD: 127 [facility] Lab Reports [id number]#1.00CD: 127 [facility] RAD - MISCon 07-24-2020 RAD - MISC [id number]#1.00CD: 127 [facility] Insurance Correspondence Off iceon 07-20-2020 Insurance Correspondence Office [id number]#1.00CD: 127 [facility] Operative Reporton Operative Report [id number]#1.00CD: 127 [facility] Physician Orderon 07-12-2020 Physician Order [id number]#1.00CD: 127 [facility] Pre-Authorization for Medica l Treatmenton 07-12-2020 Pre-Authorization for Medical Treatment [id number]#1.00CD :127 [facility] Ambulatory Clinical Summaryo 07-11-2020 Ambulatory Clinical Summary {[id number] }CD:[id number] [facility] Patient Educationon 07-12-19 Patient Education Obstetrics and [...] including vitamins, herbs, eye drops, creams, and myxl-osu-qrwgdci medicines. ? Any problems you or family [...] diabetes medicines or blood thinners. ? Taking ycut-hwy-ixxbszc medicines, vitamins, herbs, and supplements. ? Taking [...] to r (more content not included)... Normal [facility] Urology Office/Clinic Noteon 07-11-2020 Urology Office/Clinic Note Chief Complaint 3 week follow up This patient is a 75-year-old female with a history of a grade 2 midline cystocele. She is here today to discuss treatment options. She does have some symptoms of stress incontinence. She underwent cystoscopic examination with dilation of her urethra on May 08 2020. [facility] Staff Zachary is a 75 [...] urine and/or bladder capacity by US- non-imaging 93551 Urnls Dip Stick Auto w/o Microscopy POC 40317 Urology Procedure Order 2. Cystocele with prolapse [...] [facility] [address], [place] [address]- Additional Instructions: Patient Education Urethral Vaginal Sling [...] UTI Hypertensio (more content not included)... Normal [facility] Comment on above: Result Comment: Elec tronically Signed By: Jude Finley Jr., MD\.br\Date and Time Signed: 07/11/20 14:49 EDT\.br\Electronically Co-Signed By: Libby Chambers MA\.br\Date and Time Co-Signed: 07/11/20 14:30 EDT Ambulatory Clinical Summaryo n 06-20-2020 Ambulatory Clinical Summary {[id number] }CD:[id number] [facility] Patient Educationon 06-21-19 Patient Education Urology [...] including vitamins, herbs, eye drops, creams, and cenx-zev-pxzrbnu medicines. ? Any problems you or family [...] tells you to take them. ? Taking jsdp-zos-btyctal medicines, vitamins, herbs, and supplements. General instructions [...] these instructions at home: Medicines ? Take zrcq-sgf-hbxqyea and prescription medicines only as told by [...] to prevent or treat constipation: ? Take zfcq-doj-novrsms or prescription medicines. ? Eat foods that [...] pa (more content not included)... Normal [facility] Urology Office/Clinic Noteon 06-20-2020 Urology Office/Clinic [...] Urnls Dip Stick Auto w/o Microscopy POC 61428 I have reviewed the previous health record information and history for this patient from Dr. Finley Follow-up With When Contact Information Tushar Nunez MD, Jude Farias, URO [facility] [address] [place] [address]- Additional Instructions: 2 weeks Patient Education Urethral [...] mixed type (more content not included)... Normal [facility] Comment on above: Result Comment: Elec tronically Signed By: Tushar Nunez MD, Jude Farias\.br\Date and Time Signed: 06/20/20 14:36 EDT\.br\Electronically Co-Signed By: Maria Del Carmen Hernandez MA\.br\Date and Time Co-Signed: 06/20/20 14:24 EDT Coding Summary.on 06-16-2020 Coding Summary. CD:[id number] Gh0b Ww+PGhlYWQ+CS2UAREeK47ul FAntD1XV4vWIZ0EZHSVWPKWB D4GKG4qaDS6GUjkA0EeefSd CjpncKGnEX24PYm3XDI0cEyw RKyfiN7mqLAkN2r9YdMqOR16 qP01AZmzQSApQeK8AnBwspeg bWFy V1lxXaDcvEEuPbj+PHRhYmxl IHdpZHRoPScxMDAlJyBzdHls KN9eCc7gDZEcKWUglRqknFUv OiBj j0cgDICrFQgbRM2taAxzH0Zx nLW1JVFht0e5Et11yKO+PHRk VVV8mVnpYHfmm686AwSjy7xf IDM3 hDAkHVpoTSD8A10ld4V9YAAj VXBqNIY7vZH6jN1moHobdpux L0UhmDXqKuQ3MTO4eYJmiT1y bGln jyozgC3mGha+W27XIM0TDHCS SC2JFgj1I2KwZgevaUM+PC90 ZEZqZA78bUBktCIzy1wfmLm0 JzEw PUTaDRP8hUwxGJfxy3ZrEOCp A11drTFmi4P6XIOdpOrrnWYt SlXtlCG5qE0pJEbyxvega7fh dzsn Zwoit7grqj64wD32Y13aCDlu IDUfARY9OUClRKSohKidxp7s hL7oEg0+NToct7fcv7engQu0 IjIw QMKexnKidHnnTXZ0l6FiSa93 X9CskKrzf0QcGkk9dt50cGQr p4H6dRP7KWhdQBXznZ2vDSah ZnQ6 KUAmQiSdrS54mUEfECgrCk2z rVubdNtyZU5uVWRmudfiRPMh bI8eDVWibOBylBfvYY7rACIn bjtm t188RdRgQLA2GZWcdNAtW1Pw iD2gBtSwAXJpRAChB1WueOHh XQqzW263TFwnZiH3RSHzvbPi Y2Fs UYFzbEkdFrT2t7H5Na7Zg1Ga wgsvGKY6XDbwIQK6BeHuPqTb JwV4E8PeUct9QSBcwTpyWV4x J3Bh SDNsgfzwufejkES8TZDcDODy eN76aTMiGSnqMe1mu3W1m744 GPPcVTFtfV82Ui5fiLjqFCUw dCBU yG1vaifnq3wmqneaZrHfXPSj TJc7GZd6XVVwaYmgVdCxMNN7 NoC9QXO0iDYcbN6duFwyczwb dG9w Oyc+T12kgK7hCLB7URZ1rbve XTBntuKmTW30FP51X4PsYfuo dGFibGU+ALHatzUrmWscGX4m YmFj v9hso2ZvRVsvO7SzXUVfWYpw Rov7ROLfYDR2oOM0zE5sWQZe OFigo5S0hMT5S5RbygKlpo5t b2xs ZWHpUIpwT44ptKFgn6F4FSMx gOO4FZYsuDlzYaGdxF59Tii+ UWUvnXiww3ZlPcswj4gpm1ez dGg9 FxNrNGHjfrYgtSpzOBM3c8Op Cx18R71dZCcaODAfTRIeJSEu VIGjpNcngv1fzV2aWq6+PGNv bCB3 pXL9qO0dASMsPnL1KHnhC456 VkXinZFlXzezh7zqz1aytMo0 UyTkXRIectBttXkvFEY4w0Yp Lz48 M95dRBceCKWvFSPlXONcDMTf dXrewy6smV0gUj7+NO1au3rh cb18iB22kWB+XZAfZEV4hAaq PSdw CATxfH6rDWovVeZ1ACBwNuLc cF49tIAbHVqyHl4cmCjejBby TD1uOCWbqtgrb654XqRug4oh IDEw wNFtMFilLAJ2A41pc7E7UMPp OHWsXUN1pAO2iV1xbYzrlcmh bGVmdDsgdmVydGljYWwtYWxp Z246 IHRvcDsnPlBhdGllbnQgTmFt ALq3Q1FfLii4CAOokVdlIR1r fFHvMFylVo5krWwvuDabNY9a NTBp agtph360OyYzs1huYAYasCMb LNtoOMB0H90do5K5VKMpVMVw OZF1vUA6kZ5gfEvomxuswSCw dDsg dqXqqCwyUMivBJkfJ935TWHc oFtvIbTunzDeHOGwlLN0LM27 VS98vZXcn6M6tDY5H7ZiXYLc bmct weappDV7URYuISUaoJ47Ux5p oDsjXp2mWKJdTEO2POOfpABg Y8QbhY1hDnFvUHJpDKHiS4Tt eHQt CBccK608DXthGvY0UXAchoAu C8FlKJXybCmmOxN2c8J8Ig6H M9B8BF67YM52vIAnr1R6fPJ8 J3Bh AYIgrfzgmvdylSO6MGLkMNCf xS89Cu9rlKwsFe1pKLRjOFZ9 JXMfxXEwA8HhuH7rAoZjPWEa MDAw H8YakUVsKMvhG922BSijBeP9 LXRxhwMgL0UmUBQzsLcqVvM7 b9C4Se0FIXs1ZR58XS84qEDx c3R5 aFM0X7QeRGNxabwjggvfsDN0 QZBnXGIzrH08Kh0vqFzzTe4g LUUrJHO5OKFgnCOfL0YawN7q OiAj ETMlMCMpX5QzkNXnSVihK233 BQvvVvH1GYYgwjAtN0WfGDSz xUfoZzA2o6P2Wu9AYRQiNI29 IFR5 yLD9PW84WD06G2LaGilgiNUp bGU+PHRhYmxlIHdpZHRoPScx WCJuXjArwLsxME1qVm5kCQGl LWNv oEbugGVoHcLqt4kdJWTlJWdr WE2ydIhgN6DicGI0AYRrb6p0 Qi20I13iG2QxmNH+PGNvbCB3 aWR0 oR6rTvMoGwR8KKfqZ257BmRf bOLeMlnhz0cpv2kodFr3UdJ4 LJWivvAspLifFOA6f7AeOj99 Y29s IHdpZHRoPSIxNSUiIHZhbGln dc7ouH2dAm7+VJHhaHG3wBA1 rY4zAjNcSiB5WWniW444TyTh cCIv Pmmgd1gix3skkAk5TdOkORKu cuWxtMhkWAN0d5KfQr45A9Vl uRjzm3WfBni6gl23zORmw7L6 bGU9 T4PpLWFhctyrdCUhmXncHH5k POSsrjpsTLChfO7jNTKoT1i5 ZpNrPsO6GRjvG9RcqwI0XOHm cHQg OGvvVXI7P33lm0F6LQQrXQSb ZEY5jQS6uC2gkVpiucwsnOYn xAkkbeFnhXieRSpvQPzxK798 IHRv jMowOSKqvZ8xUVYlbRWplQjy DM1fAJNzfxlxDbmTV2yFVJ5A LCBHUkVUVEEgQTwvdGQ+PHRk IHN0 fGdySMniAPKvgO4eHZSmD2b9 ErIyWbO9AJapT6VbHDLvoynd Gp86uC8iBcZlRhX0VLcxT4Ok bnQ6 BYYfrOQyHYuqVMO6I02dt2H2 DTAiNCUvZVR5pUJ2mC2xtPnt bjogbGVmdDsgdmVydGljYWwt YWxp C391OVLzbHwlKzIhRlEcXvR9 UFK2K4GrAue3XIGozFleRY5f nOHeETboTw9iuOzhiAstGD4u NTBp tkplMWUfbI3nUWDiuFDblMtq GA8tLBRhvwwnf553QyHiQDZ0 VJJzfSInP3AgaY6zLkMqJZAx MDAw K8RpqLOgAYmnX822HRjsGfJ2 XIEsclHuI2TcZGTjwVucDoU6 j2F8Rq25DeUFKQYvovqqnPU+ PHRk NHK4nAjgDJahJAFvwJ0dEFSe B2q7LsNpRqK1AZtmQ0AtBXNi jnyqJm22cB5zXsDzFhJ1WSrn O2Zv wyD8FUNigSGhMEjzRPP8M93x t8A6JVBxWLFfMJO3rDR3nE7n bGlnbjogbGVmdDsgdmVydGlj YWwt JAsjM748JNJhyMecFpYurQZk ZTwvdGQ+CGWaFQU5jPzuMKvy BTUurY8wDLVnZ5h0DvAyZfM2 MGlu S4TsWHYtlsfzHg09aU5hEdVv WwT5ZSqaM3ZzplP1EREfbIFc BRnlAAX5F72eh9J4SRCeEKZr MDA7 xOB3xJ7evPkyjrignJOmyXhf exZizJboCBypOIhnH136WYKv kZlsIr85lXWcnFrtskL5K1Sp Pjwv dHI+DS89TSSwAH28lOEtmBKr p5yafJc5CqScLUEkQJJ3rHap PHamz3BcVZEaW90rkBPdh0V7 IGNv eOqjvNQlAlFedEG3tU1zTPna dxmjb6xwxoysPdnui9gmni39 rK94L55yQNfcTJBdPVZoJUFh IHZh bUscqx8ncB4kBo4+PGNvbCB3 xPX6gW9nYxSiJbE0BZzkT105 SqArqGGbLzget8sga3uwiSs7 IjIw XSGozsPtiJqgYRF7q2FiBw91 L16bLClsZUBkKJQpKNQhQMBy zLlnif0msS2qEf8+RF2er1mi cm91 yG62eWY+VZXwAMT6sArzMDlr XFMnpK3fSQkaGwJ9RNSpLxTs cU34oLIqZEkpOn8aeBmquBqv MC4w DVAoymzkm990XxOsd9avITDv tPUvFSxaVET4J52zo7G3YQPz FLCvRML3fQN5dB3rvWwxgqxa bGVm ePmawaUzsPjkRGnfWAokZ327 NAKhoOmbTqZexLZjE1iypsGC GI4tNfwctPM+DJIbJIQ2bDzp PSdw KRTvtL9dHLAzR0e7PjNfDpW6 YIttG3ApdkN0CEZqsNUsAJQc bRXQyR0pymdwi2gkyzovIiAi MDAw SLa3CPg5IMSjxNceCqIpFRN3 AmA3GLR7xTZmyZ6urIuyuble zA7uAlc+RklOOjwvdGQ+PHRk IHN0 fHonMLqbVAZckY2hYGPgO8g7 XdKhWzQ5LXquO7NsaiH7YPXe rGElYQMflQXXxE3pgrdsi7el cjog GaQlWEYyJXh6VOh1WDQloJhn JiOaSHO6ViA0PZC5fQRwwF3q hLhzetlndT7wRdu+TVJOOjwv dGQ+ WIEoFYN2vMvwDPejZZUktQ6p PHAtZ0n7PzEjOjW5EOfgA2Ji lyC5LTMptNNnTQVjpTZViO7a cztj a4youwajOvXqFKAbHQh9UZg4 SZMwoJcfZvEgZNY7ObG2VJK3 zQWdoQ5gjUszakgxiG8hEmj+ UGF5 SFE8SO07IA18Q2BtMcspzUDh bGU+PHRhYmxlIHdpZHRoPScx XAKtNnWisTciLR7dDp9hIVMt LWNv bGxh (more content not included)... Normal [facility] Consent for Procedure/Surger yon 06-15-2020 Consent for Procedure/Surgery [id number]#1.00CD :[address] [facility] Consent for Treatmenton 05-26 Consent for Treatment [id number]#1.00CD: [address] [facility] Discharge Instructionson Discharge Instructions [id number]#1.00CD :[address] [facility] IntraOperative Documentson 0 06-15-2020 IntraOperative Documents [id number]#1.00CD :[address] [facility] Main OR Intraoperative Recor don 06-15-2020 Main OR Intraoperative Record IntraOp Document Type FTURO Summary Primary Physician: Jude Finley Jr., MD Finalized Date/Time: 06/15/20 15:02:47 Pt. Name: ZACHARY MAYNARD Srinath Cordero/Sex: 1945 Female Med Rec #: [id number] Physician: Jude Finley Jr., MD Financial #: [id number] Pt. Type: O Room/Bed: / Admit/Disch: 06/15/20 13:40:05 - Institution: Case Times FTURO Entry 1 Patient Times In Room 06/15/20 14:48:00 Out Room 06/15/20 15:02:00 Procedure Times Start 06/15/20 14:50:00 Stop 06/15/20 14:52:00 Anesthesia Times Last Modified By: Sirisha Manuel RN 06/15/20 15:02:42 Case Attendance FTURO Entry 1 Entry 2 Entry 3 Case Attendee Tushar Nunez MD, Jude Farias [facility], Pauly Manuel RN, Sirisha Douglass Role Performed Surgeon - Primary Scrub - Primary Motion Picture Critic - Primary Time In 06/15/20 14:48:00 06/15/20 [...] Jude Finley Jr., MD, Verified (If [facility], Applicable) Sirisha Manuel RN Time Out [...] By: Sirisha Manuel RN 06/15/20 15:[address] [facility] Main OR Preoperative Recordo n 06-15-2020 Main OR Preoperative Record Holding Area Document Type FTURO Summary Primary Physician: Jude Finley Jr., MD Finalized Date/Time: 06/15/20 14:34:27 Pt. Name: ALEYDA, ZACHARY Yo D.O.B./Sex: 1945 Female Med Rec #: [id number] Physician: Jude Finley Jr., MD Financial #: [id number] Pt. Type: O Room/Bed: / Admit/Disch: 06/15/20 [...] 14:25 Sirisha Manuel RN 06/15/20 14:[address] [facility] Operative Reporton Operative Report Patient: ZACHARY [...] urine. The Urethra was dilated to: 24 Icelandic w/ sounds. Devices Implanted: None. Removal: Cystoscope is removed, The patient tolerated it well. Postoperative Information Discharge: Patient is discharged home with antibiotic coverage, Follow up arranged, Office visit will be planned to make arrangements for repair of cystocele.. Normal [facility] Comment on above: Result Comment: Elec tronically Signed By: Jude Finley Jr., MD\.br\Date and Time Signed: 06/15/20 14:59 EDT Pre-Authorization for Medica l Treatmenton 06-13-2020 Pre-Authorization for Medical Treatment [id number]#1.00CD :[address] [facility] Ambulatory Clinical Summaryo n 06-12-2020 Ambulatory Clinical Summary {[id number]-[id number] -[id number]-g3-15-f9-5b }CD:[id number] Normal [facility] Patient Educationon 06-13-19 Patient Education Urology [...] stimulation). ? For women, using a medical scheduler to prevent urine leaks. This is a [...] after experiencing incontinence. General instructions ? Take axts-htr-bfroqlz and prescription medicines only as (more content not included)... Normal [facility] Urology Office/Clinic Noteon 06-12-2020 Urology Office/Clinic Note Chief Complaint Patient is here for a follow up to [facility] for ball like object HPI Staff Zachary is a 75 y.o. female here for follow up to [place] [facility] for bladder hanging out, patient insists on planning surgery. Previous Dx: bladder infection, bladder outlet obstruction, dysuria, flank pain, gross hematuria, history of UTI, retention of urine, urethral stricture. 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 Patient was seen at [place] [facility] on 06/07/20 for a ball like [...] When Contact Information Jude Finley Jr., MD [phone] Additional Instructions: Patient Education Urinary Incontinence I, [...] Gross hematuria (more content not included)... Normal [facility] Comment on above: Result Comment: Elec tronically Signed By: Jude Finley Jr., MD\.br\Date and Time Signed: 06/12/20 10:30 EDT\.br\Electronically Co-Signed By: Anastasia Cabral\.br\Date and Time Co-Signed: 06/12/20 10:24 EDT Coding Summary.on 05-23-2020 Coding Summary. CODING DATE: 021 FINAL [facility] STATUS: Home (Routine DC) PAYOR: Medicare APC [...] Ryann Villegas Date Saved: 05/23/2020 09:34 am [facility] Consenton 05-22-2020 Consent [id number]#1.00CD: 127 [facility] Consent for Procedure/Surger yon 05-18-2020 Consent for Procedure/Surgery [id number]#1.00CD :127 [facility] Consent for Treatmenton 04-25 Consent for Treatment [id number]#1.00CD :127 [facility] Consent for Treatment [id number]#1.00CD: 127 [facility] Discharge Instructionson Discharge Instructions [id number]#1.00CD :127 [facility] IntraOperative Documentson 0 05-18-2020 IntraOperative Documents [id number]#1.00CD :127 [facility] Main OR Intraoperative Recor don 05-18-2020 Main OR Intraoperative Record IntraOp Document Type FTURO Summary Primary Physician: Jude Finley Jr., MD Finalized Date/Time: 05/18/20 14:11:35 Pt. Name: MARIAMA MAYNARD/Sex: 1945 Female Med Rec #: [id number] Physician: Jude Finley Jr., MD Financial #: [id number] Pt. Type: O Room/Bed: / Admit/Disch: 05/18/20 [...] Kimberly A Role Performed Surgeon - Primary Motion Picture Critic - Primary Scrub - Primary Time In [...] Glasgow RN, Lou Ann 05/18/20 14:[address] [facility] Main OR Preoperative Recordo n 05-18-2020 Main OR Preoperative Record Holding Area Document Type FTURO Summary Primary Physician: Jude Finley Jr., MD Finalized Date/Time: 05/18/20 13:59:17 Pt. Name: MARIAMA MAYNARD /Sex: 1945 Female Med Rec #: [id number] Physician: Jude Finley Jr., MD Financial #: [id number] Pt. Type: O Room/Bed: / Admit/Disch: 05/18/20 [...] Glasgow RN, Lou Ann 05/18/20 13:[address] [facility] Operative Reporton Operative Report Patient: Karl [...] urine. The Urethra was dilated to: 28 Icelandic w/ sounds. Devices Implanted: None. Removal: Cystoscope is removed, The patient tolerated it well. Postoperative Information Discharge: Patient is discharged home with antibiotic coverage, Follow up arranged. Normal [facility] Comment on above: Result Comment: Elec tronically Signed By: Tushar Nunez MD, Jude Farias\.br\Date and Time Signed: 05/18/20 14:02 EDT Ambulatory Clinical Summaryo n 05-11-2020 Ambulatory Clinical Summary {[id number]-d6 -[id number]-[id number] }CD:[id number] Normal [facility] Patient Educationon 05-12-19 21 Patient Education [...] It is (more content not included)... Normal [facility] Urology Office/Clinic Noteon 05-11-2020 Urology Office/Clinic [...] Will order Local anesthesia. ABX sent to [facility] in [place]. 2. Retention of urine (R33.9: Retention of [...] procedure, # 2 cap(s), Refills(s) 0, Pharmacy: [facility]/pharmacy #[id number], 163, cm, 05/11/20 8:31:00 EDT, Height/Length Dosing, 64.2, kg, 05/11/20 8:31:00 EDT, W... Measure Post Void residual urine and/or bladder capacity by US- non-imaging 17266 Urnls Dip Stick Auto w/o Microscopy POC 01851 I have reviewed the previous health record information and history for this pt. from Dr. Finley. Follow-up With When Contact Inf (more content not included)... Normal [facility] Comment on above: Result Comment: Elec tronically Signed By: Tushar Nunez MD, Jdue Farias\.br\Date and Time Signed: 05/11/20 10:45 EDT\.br\Electronically Co-Signed By: Kisha Stevens MA\.br\Date and Time Co-Signed: 05/11/20 08:53 EDT [facility] Clinical Summary {[id number]-[id number] -[id number]-s3-f7-p3-g8-12-f1-71 }CD:[id number] Normal [facility] Patient Educationon 01-04-20 20 Patient Education [...] to a urinary tract infection. Only take ndjn-yvx-ciohnlc or prescription medicines for pain, discomfort, or fever as directed by your caregiver. SEEK IMMEDIATE MEDICAL CARE IF: You develop chills, fever, or show signs of generalized illness that occurs prior to seeing your caregiver. Document Released: 02/09/2007 Document Revised: 05/04/2012 Document Reviewed: 01/12/2010 [employer]Care? Patient Information ?2013 [employer] [facility] Urology Office/Clinic Noteon 01-04-2020 Urology Office/Clinic Note Chief Complaint f/u to cysto UD This patient is a 74-year-old female with a history of gross hematuria and urinary tract infection. She had a recent cystoscopic examination that showed no evidence of malignancy. She was treated by her primary care physician for another urinary tract infection. [facility] Staff Pt is here for [...] Urnls Dip Stick Auto w/o Microscopy POC 38216 3. Dysuria (R30.0: Dysuria) Mild burning w/ urination. I have reviewed the previous health record information and history for this pt. from Dr. Finley. Follow-up With When Contact Information Jude Finley Jr., MD [address] [place] [address]- Additional Instructions: 1mos. w/ pVR Patient Education [...] mg T (more content not included)... Normal [facility] Comment on above: Result Comment: Elec tronically Signed By: Tushar Nunez MD, Jude Farias\.br\Date and Time Signed: 01/04/20 12:26 EST\.br\Electronically Co-Signed By: Kisha Stevens MA\.br\Date and Time Co-Signed: 01/04/20 12:01 EST Operative Reporton 0 Operative Report [id number]#1.00CD :[address] [facility] Cult,Bloodon 10-18-2019 Cult,Blood Specimen Description .BLOOD Special Requests 3ML LT A.C. Culture NO GROWTH 6 DAYS Report Status FINAL 10/18/[address] [facility] Comment on above: Performed By: #### C DP, CP, LIP, TROPI, LIPRF, GLYHGB #### [facility] Reissued [address] [place] [id number] Rafter Cutting Machine Operator: Brandon Anaya MD Cult,Blood Specimen Description .BLOOD Special Requests back lt arm 3ml Culture NO GROWTH 6 DAYS Report Status FINAL 10/18/2019 [facility] Comment on above: Performed By: #### C DP, CP, LIP, TROPI, LIPRF, GLYHGB #### [facility] Reissued [address] [place] [address] [id number] Rafter Cutting Machine Operator: Brandon Anaya MD Cult,Urineon 10-18-2019 Cult,Urine Specimen Description .CLEAN CATCH URINE Special Requests NOT REPORTED Culture STAPHYLOCOCCUS SPECIES, COAGULASE NEGATIVE >900084 CFU/ML Report Status FINAL 10/17/2019 SUSCEPTIBILITY Organism [...] REPORTED Trimethoprim/Sulfa 20 SUSCEPTIBLE Vancomycin 1 SUSCEPTIBLE [facility] Comment on above: Performed By: #### C DP, CP, LIP, TROPI, LIPRF, GLYHGB #### [facility] Reissued [address] [place] [address] Rafter Cutting Machine Operator: Brandon Anaya MD Basic Metab w/rfx MGon 10-15 (cont.) [facility] Comment on above: Result Comment: Aver age GFR for 70 or more years old: 75 mL/min/1.73sq m Chronic Kidney Disease: <60 mL/min/1.73sq m Kidney failure: <15 mL/min/1.73sq m eGFR calculated using average adult body mass. Additional eGFR calculator available at: http://www.Snap[employer].com/multiple_crcl_2012.htm Performed By: #### C DP, CP, LIP, TROPI, LIPRF, GLYHGB #### [facility] Reissued [address] [place] [address] R[employer] Cutting Machine Operator: Brandon Anaya MD Anion gap [Moles/Vol] 13 mmol/L Normal 9-17 [facility] Comment on above: Performed By: #### C DP, CP, LIP, TROPI, LIPRF, GLYHGB #### [facility] Reissued [address] [place] [phone] [employer] Operator: Brandon Anaya MD Calcium [Mass/Vol] 8.6 mg/dL Normal 8.6-10.4 [facility] Comment on above: Performed By: #### C DP, CP, LIP, TROPI, LIPRF, GLYHGB #### [facility] Reissued [address] [place] [phone] [employer] Operator: Brandon Anaya MD Chloride [Moles/Vol] 97 mmol/L Low 98-107 [facility] Comment on above: Performed By: #### C DP, CP, LIP, TROPI, LIPRF, GLYHGB #### [facility] Reissued [address] [place] [phone] [employer] Operator: Brandon Anaya MD CO2 [Moles/Vol] 25 mmol/L Normal 20-31 [facility] Comment on above: Performed By: #### C DP, CP, LIP, TROPI, LIPRF, GLYHGB #### [facility] Reissued [address] [place] [phone] [employer] Operator: Brandon Anaya MD Creatinine [Mass/Vol] 0.42 mg/dL Low 0.50-0.90 [facility] Comment on above: Performed By: #### C DP, CP, LIP, TROPI, LIPRF, GLYHGB #### [facility] Reissued [address] [place] [phone] [employer] Operator: Brandon Anaya MD GFR, Amer >60 Normal >60 [facility] Comment on above: Performed By: #### C DP, CP, LIP, TROPI, LIPRF, GLYHGB #### [facility] Reissued [address] [place] [phone] [employer] Operator: Brandon Anaya MD GFR,non Amer >60 Normal >60 [facility] Comment on above: Performed By: #### C DP, CP, LIP, TROPI, LIPRF, GLYHGB #### [facility] Reissued [address] [place] [phone] [employer] Operator: Brandon Anaya MD Glucose [Mass/Vol] 87 mg/dL Normal 70-99 [facility] Comment on above: Performed By: #### C DP, CP, LIP, TROPI, LIPRF, GLYHGB #### [address] [id number] [employer] Operator: Brandon Anaya MD Potassium [Moles/Vol] 3.7 mmol/L Normal 3.7-5.3 [facility] Comment on above: Performed By: #### C DP, CP, LIP, TROPI, LIPRF, GLYHGB #### [facility] Reissued [address] [place] [phone] [employer] Operator: Brandon Anaya MD Sodium [Moles/Vol] 135 mmol/L Normal 135-144 [facility] Comment on above: Performed By: #### C DP, CP, LIP, TROPI, LIPRF, GLYHGB #### [facility] Reissued [address] [place] [phone] [employer] Operator: Brandon Anaya MD Urea nitrogen [Mass/Vol] 14 mg/dL Normal 8-23 [facility] Comment on above: Performed By: #### C DP, CP, LIP, TROPI, LIPRF, GLYHGB #### [facility] Reissued [address] [place] [phone] [employer] Operator: Brandon Anaya MD BUN/CRE Ratio NOT REPORTED Normal 9-20 [facility] Comment on above: Performed By: #### C DP, CP, LIP, TROPI, LIPRF, GLYHGB #### [facility] Reissued [address] [place] [address] [employer] Operator: Brandon Anaya MD Staging: NOT REPORTED Normal [facility] Comment on above: Performed By: #### C DP, CP, LIP, TROPI, LIPRF, GLYHGB #### [facility] Reissued [address] [place] [address] [employer] Operator: Brandon Anaya MD Basic Metabolic Panel w/ Ref kervin to MGon 10-16-2019 Anion gap [Moles/Vol] 13 mmol/L 9 - 17 mmol/L [place] Bun/Cre Ratio NOT REPORTED [place] Calcium [Mass/Vol] 8.6 mg/dL 8.6 - 10. 4 mg/dL [place] Chloride [Moles/Vol] 97 mmol/L Low 98 - 10 7 mmol/L [place] CO2 [Moles/Vol] 25 mmol/L 20 - 31 mmol/L [place] Creatinine [Mass/Vol] 0.42 mg/dL Low 0.5 - 0.9 mg/dL [place] GFR >60 >60 mL/min [place] GFR Non- >60 >60 mL/min [place] GFR/1.73 sq M predicted among non-blacks MDRD (S/P/Bld) [Vol rate/Area] [place] Comment on above: Average GFR for 70 o r more years old: 75 mL/min/1.73sq m Chronic Kidney Disease: <60 mL/min/1.73sq m Kidney failure: <15 mL/min/1.73sq m eGFR calculated using average adult body mass. Additional eGFR calculator available at: http://www.SnapTell.[employer]/multiple_crcl_2012.htm GFR/1.73 sq M predicted among non-blacks MDRD (S/P/Bld) [Vol rate/Area] NOT REPORTED [place] Glucose [Mass/Vol] 87 mg/dL 70 - 99 mg/dL [place] Interpretation and review of laboratory results Abnormal [place] Potassium [Moles/Vol] 3.7 mmol/L 3.7 - 5.3 mmol/L [place] Sodium [Moles/Vol] 135 mmol/L 135 - 144 mmol/L [place] Urea nitrogen [Mass/Vol] 14 mg/dL 8 - 23 mg/dL [place] CBC auto differentialon 09-25 Basophils (Bld) [#/Vol] 0.04 10*3/uL [place] Basophils/100 WBC (Bld) 0 % 0 - 2 % [place] Differential Type NOT REPORTED [place] Eosinophils (Bld) [#/Vol] 0.10 10*3/uL [place] Eosinophils/100 WBC (Bld) 1 % 1 - 4 % [place] Erythrocyte distribution width (RBC) [Ratio] 14.6 % High 11.8 - 14.4 % [place] Hematocrit (Bld) [Volume fraction] 40.2 % 36.3 - 47.1 % [place] Hemoglobin (Bld) [Mass/Vol] 12.6 g/dL 11.9 - 15.1 g/dL [place] Immature granulocytes (Bld) [#/Vol] 0.08 10*3/uL [place] Immature granulocytes (Bld) [#/Vol] 1 % High 0 [place] Interpretation and review of laboratory results Abnormal [place] Lymphocytes (Bld) [#/Vol] 3.05 10*3/uL [place] Lymphocytes/100 WBC (Bld) 32 % 24 - 43 % [place] MCH (RBC) [Entitic mass] 29.0 pg 25.2 - 33.5 pg [place] MCHC (RBC) [Mass/Vol] 31.3 g/dL 28.4 - 34.8 g/dL [place] MCV (RBC) [Entitic vol] 92.4 fL 82.6 - 102.9 fL [place] Monocytes (Bld) [#/Vol] 0.76 10*3/uL [place] Monocytes/100 WBC (Bld) 8 % 3 - 12 % [place] Platelet mean volume (Bld) [Entitic vol] 10.6 fL 8.1 - 13.5 fL [place] Platelets (Bld) [#/Vol] 216 10*3/uL [place] Platelets (Bld) [#/Vol] NOT REPORTED [place] RBC (Bld) [#/Vol] 4.35 10*6/uL 3.95 - 5.1 1 m/uL [place] RBC morphology finding Nom (Bld) ANISOCYTOSIS PRESENT [place] Segmented neutrophils/100 WBC (Bld) 58 % 36 - 65 % [place] Segs Absolute 5.61 [place] WBC (Bld) [#/Vol] 9.6 10*3/uL [place] WBC (Bld) [#/Vol] 0.0 10*3/uL 0.0 per 10 0 WBC [place] WBC Morphology NOT REPORTED [place] CBC with Diffon 10-16-2019 Abs. Basophil 0.04 k/uL Normal 0.00-0.20 [facility] Comment on above: Performed By: #### C DP, CP, LIP, TROPI, LIPRF, GLYHGB #### [facility] Reissued [address] [place], [place] [id number] [employer] Operator: Brandon Anaya MD Abs.Imm.Granulocyte 0.08 k/uL Normal 0.00-0.30 [facility] Comment on above: Performed By: #### C DP, CP, LIP, TROPI, LIPRF, GLYHGB #### [facility] Reissued [address] [place], [place] [id number] [employer] Operator: Brandon Anaya MD Abs.Neutrophil (Seg) 5.61 k/uL Normal 1.50-8.10 [facility] Comment on above: Performed By: #### C DP, CP, LIP, TROPI, LIPRF, GLYHGB #### [address] [address] [employer] Operator: Brandon Anaya MD Basophils/100 WBC (Bld) 0 % Normal 0-2 [facility] Comment on above: Performed By: #### C DP, CP, LIP, TROPI, LIPRF, GLYHGB #### [address] [address] [employer] Operator: Brandon Anaya MD Eosinophils (Bld) [#/Vol] 0.10 10*3/uL Normal 0.00-0.44 [facility] Comment on above: Performed By: #### C DP, CP, LIP, TROPI, LIPRF, GLYHGB #### [address] [address] [employer] Operator: Brandon Anaya MD Eosinophils/100 WBC (Bld) 1 % Normal 1-4 [facility] Comment on above: Performed By: #### C DP, CP, LIP, TROPI, LIPRF, GLYHGB #### [place] [address] [employer] Operator: Brandon Anaya MD Erythrocyte distribution width (RBC) [Ratio] 14.6 % High 11.8-14.4 [facility] Comment on above: Performed By: #### C DP, CP, LIP, TROPI, LIPRF, GLYHGB #### [place] [address] [employer] Operator: Brandon Anaya MD Hematocrit (Bld) [Volume fraction] 40.2 % Normal 36.3-47.1 [facility] Comment on above: Performed By: #### C DP, CP, LIP, TROPI, LIPRF, GLYHGB #### [address] [address] [employer] Operator: Brandon Anaya MD Hemoglobin (Bld) [Mass/Vol] 12.6 g/dL Normal 11.9-15.1 [facility] Comment on above: Performed By: #### C DP, CP, LIP, TROPI, LIPRF, GLYHGB #### [address] [address] [employer] Operator: Brandon Anaya MD Immature granulocytes (Bld) [#/Vol] 1 % High 0 [facility] Comment on above: Performed By: #### C DP, CP, LIP, TROPI, LIPRF, GLYHGB #### [address] [address] [employer] Operator: Brandon Anaya MD Lymphocytes (Bld) [#/Vol] 3.05 10*3/uL Normal 1.10-3.70 [facility] Comment on above: Performed By: #### C DP, CP, LIP, TROPI, LIPRF, GLYHGB #### [place] [address] [employer] Operator: Brandon Anaya MD Lymphocytes/100 WBC (Bld) 32 % Normal 24-43 [facility] Comment on above: Performed By: #### C DP, CP, LIP, TROPI, LIPRF, GLYHGB #### [address] [address] [employer] Operator: Brandon Anaya MD MCH (RBC) [Entitic mass] 29.0 pg Normal 25.2-33.5 [facility] Comment on above: Performed By: #### C DP, CP, LIP, TROPI, LIPRF, GLYHGB #### [address] [address] [employer] Operator: Brandon Anaya MD MCHC (RBC) [Mass/Vol] 31.3 g/dL Normal 28.4-34.8 [facility] Comment on above: Performed By: #### C DP, CP, LIP, TROPI, LIPRF, GLYHGB #### [address] [address] [employer] Operator: Brandon Anaya MD MCV (RBC) [Entitic vol] 92.4 fL Normal 82.6-102.9 [facility] Comment on above: Performed By: #### C DP, CP, LIP, TROPI, LIPRF, GLYHGB #### [address] [address] [employer] Operator: Brandon Anaya MD Monocytes (Bld) [#/Vol] 0.76 10*3/uL Normal 0.10-1.20 [facility] Comment on above: Performed By: #### C DP, CP, LIP, TROPI, LIPRF, GLYHGB #### [address] [address] [employer] Operator: Brandon Anaya MD Monocytes/100 WBC (Bld) 8 % Normal 3-12 [facility] Comment on above: Performed By: #### C DP, CP, LIP, TROPI, LIPRF, GLYHGB #### [address] [address] [employer] Operator: Brandon Anaya MD Neutrophil (Seg) 58 % Normal 36-65 [facility] Comment on above: Performed By: #### C DP, CP, LIP, TROPI, LIPRF, GLYHGB #### [address] [address] [employer] Operator: Brandon Anaya MD NRBC Automated 0.0 per [address] [facility] Comment on above: Performed By: #### C DP, CP, LIP, TROPI, LIPRF, GLYHGB #### [address] [address] [employer] Operator: Brandon Anaya MD Platelet mean volume (Bld) [Entitic vol] 10.6 fL Normal 8.1-13.5 [facility] Comment on above: Performed By: #### C DP, CP, LIP, TROPI, LIPRF, GLYHGB #### [address] [address] [employer] Operator: Brandon Anaya MD Platelets (Bld) [#/Vol] 216 10*3/uL Normal 138-453 [facility] Comment on above: Performed By: #### C DP, CP, LIP, TROPI, LIPRF, GLYHGB #### [address] [address] [employer] Operator: Brandon Anaya MD RBC (Bld) [#/Vol] 4.35 10*6/uL Normal 3.95-5.11 [facility] Comment on above: Performed By: #### C DP, CP, LIP, TROPI, LIPRF, GLYHGB #### [address] [address] [employer] Operator: Brandon Anaya MD RBC morphology finding Nom (Bld) ANISOCYTOSIS PRESENT Normal [facility] Comment on above: Performed By: #### C DP, CP, LIP, TROPI, LIPRF, GLYHGB #### [address] [address] [employer] Operator: Brandon Anaya MD WBC (Bld) [#/Vol] 9.6 10*3/uL Normal 3.5-11.3 [facility] Comment on above: Performed By: #### C DP, CP, LIP, TROPI, LIPRF, GLYHGB #### [address] [address] [employer] Operator: Brandon Anaya MD Auto Diff Performed NOT REPORTED Normal [facility] Comment on above: Performed By: #### C DP, CP, LIP, TROPI, LIPRF, GLYHGB #### [address] [address] [employer] Operator: Brandon Anaya MD Platelets (Bld) [#/Vol] NOT REPORTED Normal [facility] Comment on above: Performed By: #### C DP, CP, LIP, TROPI, LIPRF, GLYHGB #### [facility] [address] [place] [address] [employer] Operator: Brandon Anaya MD WBC Morphology NOT REPORTED Normal [facility] Comment on above: Performed By: #### C DP, CP, LIP, TROPI, LIPRF, GLYHGB #### [facility] [address] [place] [address] [employer] Operator: Brandon Anaya MD MRI LUMBAR SPINE W [...] Tiffany Lindsay MD 10/15/[address] [facility] POC Glucose Fingerstickon Glucose [Mass/Vol] 98 mg/dL 65 - 105 mg/dL [place] Glucose [Mass/Vol] 107 mg/dL High 65 - 105 mg/dL [place] Interpretation and review of laboratory results Abnormal [place] Glucose [Mass/Vol] 81 mg/dL 65 - 105 mg/dL [place] URINALYSIS WITH MICROSCOPICo n 10-16-2019 Amorphous, UA NOT REPORTED None [place] Bacteria, UA MODERATE Abnormal None [place] Bilirubin Urine Negative NEGATIVE [place] Casts UA 0 TO 2 HYALINE Refer ence range defined for non-centrifuged specimen. [place] Color, UA YELLOW YELLOW [place] Crystals, UA NOT REPORTED None /HPF [place] Epithelial Cells UA 0 TO 2 [place] Glucose, Ur Negative NEGATIVE [place] Interpretation and review of laboratory results Abnormal [place] Ketones Ql (U) SMALL Abnormal NEGATIVE [place] Leukocyte esterase Test strip Ql (U) Negative NEGATIVE [place] Mucus, UA NOT REPORTED None [place] Nitrite, Urine Negative NEGATIVE [place] Other Observations UA NOT REPORTED NOT REQ. M [place] pH, UA 8.0 [place] Protein (U) [Mass/Vol] Negative NEGATIVE [place] RBC (U) [#/Vol] 2 TO 5 [place] Comment on above: Reference range defi nya for non-centrifuged specimen. Renal Epithelial, UA NOT REPORTED 0 /HPF [place] Specific [place], UA 1.006 [place] Trichomonas, UA NOT REPORTED None [place] Turbidity UA CLOUDY Abnormal CLEAR [place] Urine Hgb Negative NEGATIVE [place] Urobilinogen, Urine Normal Normal [place] WBC, UA 0 TO 2 [place] Yeast, UA NOT REPORTED None [place] - [place] Urinalysis w/ Microon 2019 ----- Normal [facility] Comment on above: Performed By: #### C DP, CP, LIP, TROPI, LIPRF, GLYHGB #### [facility] Reissued [address] [place] [phone] [employer] Operator: Brandon Anaya MD Acetoacetic Acid,Ur SMALL Abnormal NEG [facility] Comment on above: Performed By: #### C DP, CP, LIP, TROPI, LIPRF, GLYHGB #### [facility] Reissued [address] [place] [phone] [employer] Operator: Brandon Anaya MD Bacteria LM.HPF (Urine sed) [#/Area] MODERATE Abnormal NONE [facility] Comment on above: Performed By: #### C DP, CP, LIP, TROPI, LIPRF, GLYHGB #### [facility] Reissued [address] [place] [phone] [employer] Operator: Brandon Anaya MD Bilirubin, SemiQt,Ur Negative Normal NEG [facility] Comment on above: Performed By: #### C DP, CP, LIP, TROPI, LIPRF, GLYHGB #### [address] [address] [employer] Operator: Brandon Anaya MD Casts LM.LPF (Urine sed) [#/Area] 0 TO 2 HYALINE Normal 0-8 [facility] Comment on above: Result Comment: Refe rence range defined for non-centrifuged specimen. Performed By: #### C DP, CP, LIP, TROPI, LIPRF, GLYHGB #### [address] [address] [employer] Operator: Brandon Anaya MD Color (U) YELLOW Normal YEL [facility] Comment on above: Performed By: #### C DP, CP, LIP, TROPI, LIPRF, GLYHGB #### [address] [address] [employer] Operator: Brandon Anaya MD Epithelial cells LM.HPF (Urine sed) [#/Area] 0 TO 2 Normal 0-5 [facility] Comment on above: Performed By: #### C DP, CP, LIP, TROPI, LIPRF, GLYHGB #### [address] [address] [employer] Operator: Brandon Anaya MD Glucose Ql (U) Negative Normal NEG [facility] Comment on above: Performed By: #### C DP, CP, LIP, TROPI, LIPRF, GLYHGB #### [address] [address] [employer] Operator: Brandon Anaya MD Hemoglobin, Ur Negative Normal NEG [facility] Comment on above: Performed By: #### C DP, CP, LIP, TROPI, LIPRF, GLYHGB #### [address] [address] [employer] Operator: Brandon Anaya MD Leukocyte esterase Test strip Ql (U) Negative Normal NEG [facility] Comment on above: Performed By: #### C DP, CP, LIP, TROPI, LIPRF, GLYHGB #### [address] [address] [employer] Operator: Brandon Anaya MD Nitrite,Ur Negative Normal NEG [facility] Comment on above: Performed By: #### C DP, CP, LIP, TROPI, LIPRF, GLYHGB #### [place] [address] [employer] Operator: Brandon Anaya MD pH (U) 8.0 [pH] Normal 5.0-8.0 [facility] Comment on above: Performed By: #### C DP, CP, LIP, TROPI, LIPRF, GLYHGB #### [place] [address] [employer] Operator: Brandon Anaya MD Protein Ql (U) Negative Normal NEG [facility] Comment on above: Performed By: #### C DP, CP, LIP, TROPI, LIPRF, GLYHGB #### [facility] Reissued [address] [place] [phone] [employer] Operator: Brandon Anaya MD RBC (U) [#/Vol] 2 TO 5 Normal 0-4 [facility] Comment on above: Result Comment: Refe rence range defined for non-centrifuged specimen. Performed By: #### C DP, CP, LIP, TROPI, LIPRF, GLYHGB #### [facility] Reissued [address] [place] [address] [employer] Operator: Brandon Anaya MD Specific gravity (U) [Rel density] 1.006 Normal 1.005-1.030 [facility] Comment on above: Performed By: #### C DP, CP, LIP, TROPI, LIPRF, GLYHGB #### [address] [address] [employer] Operator: Brandon Anaya MD Turbidity CLOUDY Abnormal CLEAR [facility] Comment on above: Performed By: #### C DP, CP, LIP, TROPI, LIPRF, GLYHGB #### [facility] [address] [place] [address] [employer] Operator: Brandon Anaya MD Urobilinogen,Ur Normal Normal NORM [facility] Comment on above: Performed By: #### C DP, CP, LIP, TROPI, LIPRF, GLYHGB #### [address] [address] [employer] Operator: Brandon Anaya MD WBC (U) [#/Vol] 0 TO 2 Normal 0-5 [facility] Comment on above: Performed By: #### C DP, CP, LIP, TROPI, LIPRF, GLYHGB #### [address] [address] [employer] Operator: Brandon Anaya MD Amorphous sediment LM Ql (Urine sed) NOT REPORTED Normal NONE [facility] Comment on above: Performed By: #### C DP, CP, LIP, TROPI, LIPRF, GLYHGB #### [address] [address] [employer] Operator: Brandon Anaya MD Crystals LM Nom (Urine sed) NOT REPORTED Normal NONE [facility] Comment on above: Performed By: #### C DP, CP, LIP, TROPI, LIPRF, GLYHGB #### [address] [address] [employer] Operator: Brandon Anaya MD Epithelial, Renal NOT REPORTED Normal 0 [facility] Comment on above: Performed By: #### C DP, CP, LIP, TROPI, LIPRF, GLYHGB #### [address] [address] [employer] Operator: Brandon Anaya MD Mucus Strands NOT REPORTED Normal [facility] Comment on above: Performed By: #### C DP, CP, LIP, TROPI, LIPRF, GLYHGB #### [address] [address] [employer] Operator: Brandon Anaya MD Other Observations NOT REPORTED Normal [facility] Comment on above: Performed By: #### C DP, CP, LIP, TROPI, LIPRF, GLYHGB #### [address] [address] [employer] Operator: Brandon Anaya MD Trichomonas NOT REPORTED Normal [facility] Comment on above: Performed By: #### C DP, CP, LIP, TROPI, LIPRF, GLYHGB #### [address] [address] [employer] Operator: Brandon Anaya MD Yeast LM Ql (Urine sed) NOT REPORTED Normal [facility] Comment on above: Performed By: #### C DP, CP, LIP, TROPI, LIPRF, GLYHGB #### [address] [address] [employer] Operator: Brandon Anaya MD Basic Metab w/rfx MGon 10-14 (cont.) Normal [facility] Comment on above: Result Comment: Aver age GFR for 70 or more years old: 75 mL/min/1.73sq m Chronic Kidney Disease: <60 mL/min/1.73sq m Kidney failure: <15 mL/min/1.73sq m eGFR calculated using average adult body mass. Additional eGFR calculator available at: http://www.[employer]Tell.[employer]/multiple_crcl_2012.htm Performed By: #### C DP, CP, LIP, TROPI, LIPRF, GLYHGB #### [facility] Reissued [address] [place] [phone] [employer] Operator: Brandon Anaya MD Anion gap [Moles/Vol] 14 mmol/L Normal 9-17 [facility] Comment on above: Performed By: #### C DP, CP, LIP, TROPI, LIPRF, GLYHGB #### [facility] Reissued [address] [place] [address] [employer] Operator: Brandon Anaya MD Calcium [Mass/Vol] 8.8 mg/dL Normal 8.6-10.4 [facility] Comment on above: Performed By: #### C DP, CP, LIP, TROPI, LIPRF, GLYHGB #### [facility] Reissued [address] [place] [address] [employer] Operator: Brandon Anaya MD Chloride [Moles/Vol] 94 mmol/L Low 98-107 [facility] Comment on above: Performed By: #### C DP, CP, LIP, TROPI, LIPRF, GLYHGB #### [facility] Reissued [address] [place] [phone] [employer] Operator: Brandon Anaya MD CO2 [Moles/Vol] 23 mmol/L Normal 20-31 [facility] Comment on above: Performed By: #### C DP, CP, LIP, TROPI, LIPRF, GLYHGB #### [facility] Reissued [address] [place] [address] [employer] Operator: Brandon Anaya MD Creatinine [Mass/Vol] 0.36 mg/dL Low 0.50-0.90 [facility] Comment on above: Performed By: #### C DP, CP, LIP, TROPI, LIPRF, GLYHGB #### [facility] Reissued [address] [place] [address] [employer] Operator: Brandon Anaya MD GFR, Amer >60 Normal >60 [facility] Comment on above: Performed By: #### C DP, CP, LIP, TROPI, LIPRF, GLYHGB #### [address] [address] [employer] Operator: Brandon Anaya MD GFR,non Amer >60 Normal >60 [facility] Comment on above: Performed By: #### C DP, CP, LIP, TROPI, LIPRF, GLYHGB #### [address] [address] [employer] Operator: Brandon Anaya MD Glucose [Mass/Vol] 89 mg/dL Normal 70-99 [facility] Comment on above: Performed By: #### C DP, CP, LIP, TROPI, LIPRF, GLYHGB #### [address] [address] [employer] Operator: Brandon Anaya MD Potassium [Moles/Vol] 3.7 mmol/L Normal 3.7-5.3 [facility] Comment on above: Performed By: #### C DP, CP, LIP, TROPI, LIPRF, GLYHGB #### [address] [address] [employer] Operator: Brandon Anaya MD Sodium [Moles/Vol] 131 mmol/L Low 135-144 [facility] Comment on above: Performed By: #### C DP, CP, LIP, TROPI, LIPRF, GLYHGB #### [address] [address] [employer] Operator: Brandon Anaya MD Urea nitrogen [Mass/Vol] 16 mg/dL Normal 8-23 [facility] Comment on above: Performed By: #### C DP, CP, LIP, TROPI, LIPRF, GLYHGB #### [address] [address] [employer] Operator: Brandon Anaya MD BUN/CRE Ratio NOT REPORTED Normal 9-20 [facility] Comment on above: Performed By: #### C DP, CP, LIP, TROPI, LIPRF, GLYHGB #### [facility] [address] [place], [place] [id number] [employer] Operator: Brandon Anaya MD Staging: NOT REPORTED Normal [facility] Comment on above: Performed By: #### C DP, CP, LIP, TROPI, LIPRF, GLYHGB #### [facility] Reissued [address] [place], [place] [phone] [employer] Operator: Brandon Anaya MD Basic Metabolic Panel w/ Ref kervin to [facility] 10-15-2019 Anion gap [Moles/Vol] 14 mmol/L 9 - 17 mmol/L [place] Bun/Cre Ratio NOT REPORTED [place] Calcium [Mass/Vol] 8.8 mg/dL 8.6 - 10. 4 mg/dL [place] Chloride [Moles/Vol] 94 mmol/L Low 98 - 10 7 mmol/L [place] CO2 [Moles/Vol] 23 mmol/L 20 - 31 mmol/L [place] Creatinine [Mass/Vol] 0.36 mg/dL Low 0.5 - 0.9 mg/dL [place] GFR >60 >60 mL/min [place] GFR Non- >60 >60 mL/min [place] GFR/1.73 sq M predicted among non-blacks MDRD (S/P/Bld) [Vol rate/Area] [place] Comment on above: Average GFR for 70 o r more years old: 75 mL/min/1.73sq m Chronic Kidney Disease: <60 mL/min/1.73sq m Kidney failure: <15 mL/min/1.73sq m eGFR calculated using average adult body mass. Additional eGFR calculator available at: http://www.Sn[employer]Tell.[employer]/multiple_crcl_2012.htm GFR/1.73 sq M predicted among non-blacks MDRD (S/P/Bld) [Vol rate/Area] NOT REPORTED [place] Glucose [Mass/Vol] 89 mg/dL 70 - 99 mg/dL [place] Interpretation and review of laboratory results Abnormal [place] Potassium [Moles/Vol] 3.7 mmol/L 3.7 - 5.3 mmol/L [place] Sodium [Moles/Vol] 131 mmol/L Low 135 - 144 mmol/L [place] Urea nitrogen [Mass/Vol] 16 mg/dL 8 - 23 mg/dL [place] CBC auto differentialon 09-25 Basophils (Bld) [#/Vol] 0.06 10*3/uL [place] Basophils/100 WBC (Bld) 1 % 0 - 2 % [place] Differential Type NOT REPORTED [place] Eosinophils (Bld) [#/Vol] 0.13 10*3/uL [place] Eosinophils/100 WBC (Bld) 1 % 1 - 4 % [place] Erythrocyte distribution width (RBC) [Ratio] 14.6 % High 11.8 - 14.4 % [place] Hematocrit (Bld) [Volume fraction] 41.6 % 36.3 - 47.1 % [place] Hemoglobin (Bld) [Mass/Vol] 13.4 g/dL 11.9 - 15.1 g/dL [place] Immature granulocytes (Bld) [#/Vol] 1 % High 0 [place] Immature granulocytes (Bld) [#/Vol] 0.11 10*3/uL [place] Interpretation and review of laboratory results Abnormal [place] Lymphocytes (Bld) [#/Vol] 2.56 10*3/uL [place] Lymphocytes/100 WBC (Bld) 24 % 24 - 43 % [place] MCH (RBC) [Entitic mass] 29.3 pg 25.2 - 33.5 pg [place] MCHC (RBC) [Mass/Vol] 32.2 g/dL 28.4 - 34.8 g/dL [place] MCV (RBC) [Entitic vol] 90.8 fL 82.6 - 102.9 fL [place] Monocytes (Bld) [#/Vol] 0.78 10*3/uL [place] Monocytes/100 WBC (Bld) 7 % 3 - 12 % [place] Platelet mean volume (Bld) [Entitic vol] 10.6 fL 8.1 - 13.5 fL [place] Platelets (Bld) [#/Vol] NOT REPORTED [place] Platelets (Bld) [#/Vol] 241 10*3/uL [place] RBC (Bld) [#/Vol] 4.58 10*6/uL 3.95 - 5.1 1 m/uL [place] RBC morphology finding Nom (Bld) ANISOCYTOSIS PRESENT [place] Segmented neutrophils/100 WBC (Bld) 66 % High 36 - 65 % [place] Segs Absolute 7.00 [place] WBC (Bld) [#/Vol] 10.6 10*3/uL [place] WBC (Bld) [#/Vol] 0.0 10*3/uL 0.0 per 10 0 WBC [place] WBC Morphology NOT REPORTED [place] CBC with Diffon 10-15-2019 Abs. Basophil 0.06 k/uL Normal 0.00-0.20 [facility] Comment on above: Performed By: #### C DP, CP, LIP, TROPI, LIPRF, GLYHGB #### [facility] [address] [place], [place] [id number] [employer] Operator: Brandon Anaya MD Abs.Imm.Granulocyte 0.11 k/uL Normal 0.00-0.30 [facility] Comment on above: Performed By: #### C DP, CP, LIP, TROPI, LIPRF, GLYHGB #### [facility] Reissued [address] [place] [address] [employer] Operator: Brandon Anaya MD Abs.Neutrophil (Seg) 7.00 k/uL Normal 1.50-8.10 [facility] Comment on above: Performed By: #### C DP, CP, LIP, TROPI, LIPRF, GLYHGB #### [facility] Reissued [address] [place] [phone] [employer] Operator: Brandon Anaya MD Basophils/100 WBC (Bld) 1 % Normal 0-2 [facility] Comment on above: Performed By: #### C DP, CP, LIP, TROPI, LIPRF, GLYHGB #### [address] [address] [employer] Operator: Brandon Anaya MD Eosinophils (Bld) [#/Vol] 0.13 10*3/uL Normal 0.00-0.44 [facility] Comment on above: Performed By: #### C DP, CP, LIP, TROPI, LIPRF, GLYHGB #### [place] [address] [employer] Operator: Brandon Anaya MD Eosinophils/100 WBC (Bld) 1 % Normal 1-4 [facility] Comment on above: Performed By: #### C DP, CP, LIP, TROPI, LIPRF, GLYHGB #### [place] [address] [employer] Operator: Brandon Anaya MD Erythrocyte distribution width (RBC) [Ratio] 14.6 % High 11.8-14.4 [facility] Comment on above: Performed By: #### C DP, CP, LIP, TROPI, LIPRF, GLYHGB #### [facility] Reissued [address] [place] [address] [employer] Operator: Brandon Anaya MD Hematocrit (Bld) [Volume fraction] 41.6 % Normal 36.3-47.1 [facility] Comment on above: Performed By: #### C DP, CP, LIP, TROPI, LIPRF, GLYHGB #### [facility] Reissued [address] [place] [address] [employer] Operator: Brandon Anaya MD Hemoglobin (Bld) [Mass/Vol] 13.4 g/dL Normal 11.9-15.1 [facility] Comment on above: Performed By: #### C DP, CP, LIP, TROPI, LIPRF, GLYHGB #### [address] [address] [employer] Operator: Brandon Anaya MD Immature granulocytes (Bld) [#/Vol] 1 % High 0 [facility] Comment on above: Performed By: #### C DP, CP, LIP, TROPI, LIPRF, GLYHGB #### [address] [address] [employer] Operator: Brandon Anaya MD Lymphocytes (Bld) [#/Vol] 2.56 10*3/uL Normal 1.10-3.70 [facility] Comment on above: Performed By: #### C DP, CP, LIP, TROPI, LIPRF, GLYHGB #### [address] [address] [employer] Operator: Brandon Anaya MD Lymphocytes/100 WBC (Bld) 24 % Normal 24-43 [facility] Comment on above: Performed By: #### C DP, CP, LIP, TROPI, LIPRF, GLYHGB #### [address] [address] [employer] Operator: Brandon Anaya MD MCH (RBC) [Entitic mass] 29.3 pg Normal 25.2-33.5 [facility] Comment on above: Performed By: #### C DP, CP, LIP, TROPI, LIPRF, GLYHGB #### [address] [address] [employer] Operator: Brandon Anaya MD MCHC (RBC) [Mass/Vol] 32.2 g/dL Normal 28.4-34.8 [facility] Comment on above: Performed By: #### C DP, CP, LIP, TROPI, LIPRF, GLYHGB #### [address] [address] [employer] Operator: Brandon Anaya MD MCV (RBC) [Entitic vol] 90.8 fL Normal 82.6-102.9 [facility] Comment on above: Performed By: #### C DP, CP, LIP, TROPI, LIPRF, GLYHGB #### [address] [address] [employer] Operator: Brandon Anaya MD Monocytes (Bld) [#/Vol] 0.78 10*3/uL Normal 0.10-1.20 [facility] Comment on above: Performed By: #### C DP, CP, LIP, TROPI, LIPRF, GLYHGB #### [place] [address] [employer] Operator: Brandon Anaay MD Monocytes/100 WBC (Bld) 7 % Normal 3-12 [facility] Comment on above: Performed By: #### C DP, CP, LIP, TROPI, LIPRF, GLYHGB #### [address] [address] [employer] Operator: Brandon Anaya MD Neutrophil (Seg) 66 % High 36-65 [facility] Comment on above: Performed By: #### C DP, CP, LIP, TROPI, LIPRF, GLYHGB #### [address] [address] [employer] Operator: Brandon Anaya MD NRBC Automated 0.0 per [address] [facility] Comment on above: Performed By: #### C DP, CP, LIP, TROPI, LIPRF, GLYHGB #### [address] [address] [employer] Operator: Brandon Anaya MD Platelet mean volume (Bld) [Entitic vol] 10.6 fL Normal 8.1-13.5 [facility] Comment on above: Performed By: #### C DP, CP, LIP, TROPI, LIPRF, GLYHGB #### [address] [address] [employer] Operator: Brandon Anaya MD Platelets (Bld) [#/Vol] 241 10*3/uL Normal 138-453 [facility] Comment on above: Performed By: #### C DP, CP, LIP, TROPI, LIPRF, GLYHGB #### [address] [address] [employer] Operator: Brandon Anaya MD RBC (Bld) [#/Vol] 4.58 10*6/uL Normal 3.95-5.11 [facility] Comment on above: Performed By: #### C DP, CP, LIP, TROPI, LIPRF, GLYHGB #### [address] [address] [employer] Operator: Brandon Anaya MD RBC morphology finding Nom (Bld) ANISOCYTOSIS PRESENT Normal [facility] Comment on above: Performed By: #### C DP, CP, LIP, TROPI, LIPRF, GLYHGB #### [address] [address] R[employer] Operator: Brandon Anaya MD WBC (Bld) [#/Vol] 10.6 10*3/uL Normal 3.5-11.3 [facility] Comment on above: Performed By: #### C DP, CP, LIP, TROPI, LIPRF, GLYHGB #### [address] [address] [employer]after [employer] Operator: Brandon Anaya MD Auto Diff Performed NOT REPORTED Normal [facility] Comment on above: Performed By: #### C DP, CP, LIP, TROPI, LIPRF, GLYHGB #### [email or web address] [address] [place] [address] Rafter Cutting [employer] Operator: Brandon Anaya MD Platelets (Bld) [#/Vol] NOT REPORTED Normal [facility] Comment on above: Performed By: #### C DP, CP, LIP, TROPI, LIPRF, GLYHGB #### [facility] [address] [place] [address] [employer]after [employer] Operator: Brandon Anaya MD WBC Morphology NOT REPORTED Normal [facility] Comment on above: Performed By: #### C DP, CP, LIP, TROPI, LIPRF, GLYHGB #### [facility] Reissued [address] [place] [address] [employer] Operator: Brandon Anaya MD MRI LUMBAR SPINE W [...] 2013; 10(10):789-794; J Vasc Surg. 2018; 67:2-77 [place], [place] EXAMINATION: MRI OF THE LUMBAR SPINE [...] are intact. The neural foramina are intact. [facility] [place], [place] Prieto, Mhpn Incoming Radiant Results From [employer] - 10/15/2019 11:11 PM EDT EXAMINATION: MRI [...] 2013; 10(10):789-794; J Vasc Surg. 2018; 67:2-77 [place] MYCOPLASMA PNEUMONIAE ANTIBO DY, IGMon 10-15-2019 Mycoplasma pneumo IgM 0.12 <0.91 [place] Comment on above: Reference Range: <=0.90 Negative 0.91-1.09 Equivocal >=1.10 Positive Mycoplasma Ab, IgMon 020 Mycoplasma Ab, IgM 0.12 Normal <0.91 [facility] Comment on above: Result Comment: Reference Range: <=0.90 Negative 0.91-1.09 Equivocal >=1.10 Positive Performed By: #### C DP, CP, LIP, TROPI, LIPRF, GLYHGB #### [facility] Reissued [address] [place] [address] [employer] Operator: Brandon Anaya MD POC Glucose Fingerstickon Glucose [Mass/Vol] 100 mg/dL 65 - 105 mg/dL [place] Glucose [Mass/Vol] 99 mg/dL 65 - 105 mg/dL [place] Glucose [Mass/Vol] 91 mg/dL 65 - 105 mg/dL [place] Glucose [Mass/Vol] 95 mg/dL 65 - 105 mg/dL [place] RENINon 10-15-2019 Renin Activity 0.1 ng/mL/hr [place] Comment on above: (NOTE) INTERPRETIVE INFORMATION: Renin Activity Adult, Normal sodium diet: Supine ................. 0.2-1.6 ng/mL/hr Upright ................ 0.5-4.0 ng/mL/hr Children, Normal sodium diet, Supine: [place] (1-7 days) ..... 2.0-35.0 ng/mL/hr Cord blood [...] angiotensinogen is decreased. See Compliance Statement D: [email or web address] Performed By: [facility] [address] [place] [address] Meterman: Nik Rosas MD, MS Renin Comment NOT REPORTED [facility], [place] Renin Activityon 10-15-2019 Renin Activity 0.1 ng/mL/hr Normal [facility] Comment on above: Result Comment: (NOT [...] angiotensinogen is decreased. See Compliance Statement D: [email or web address] Performed By: [facility] [address] [place] [address] Meterman: Nik Rosas MD, MS Performed By: #### C DP, CP, LIP, TROPI, LIPRF, GLYHGB #### [id number] [place], [place] [id number] [employer] Operator: Brandon Anaya MD ALDOSTERONEon 10-14-2019 Aldosterone 5 ng/dL [place], [place] Comment on above: (NOTE) INTERPRETIVE INFORMATION: [...] reference intervals for this test in the Submittable Laboratory Test Directory ([employer]). Performed By: [facility] [address] [place] [address] Meterman: Nik Rosas MD, MS Aldosterone Comment NOT REPORTED [facility] Aldosterone 5.0 ng/dL Normal [facility] Comment on above: Result Comment: (NOT [...] reference intervals for this test in the Submittable Laboratory Test Directory ([employer]). Performed By: [facility] [address] [place] [address] Meterman: Nik Rosas MD, MS Performed By: #### C DP, CP, LIP, TROPI, LIPRF, GLYHGB #### [place] [address] [employer] Operator: Barndon Anaya MD Basic Metab w/rfx MGon 10-13 (cont.) Normal [facility] Comment on above: Result Comment: Aver age GFR for 70 or more years old: 75 mL/min/1.73sq m Chronic Kidney Disease: <60 mL/min/1.73sq m Kidney failure: <15 mL/min/1.73sq m eGFR calculated using average adult body mass. Additional eGFR calculator available at: http://www.[employer]/multiple_crcl_2012.htm Performed By: #### C DP, CP, LIP, TROPI, LIPRF, GLYHGB #### [place] [id number] [employer] Operator: Brandon Anaya MD Anion gap [Moles/Vol] 13 mmol/L Normal 9-17 [facility] Comment on above: Performed By: #### C DP, CP, LIP, TROPI, LIPRF, GLYHGB #### [place] [id number] [employer] Operator: Brandon Anaya MD Calcium [Mass/Vol] 8.5 mg/dL Low 8.6-10.4 [facility] Comment on above: Performed By: #### C DP, CP, LIP, TROPI, LIPRF, GLYHGB #### [facility] [address] [place] [address] [employer] Operator: Brandon Anaya MD Chloride [Moles/Vol] 91 mmol/L Low 98-107 [facility] Comment on above: Performed By: #### C DP, CP, LIP, TROPI, LIPRF, GLYHGB #### [facility] [address] [place] [address] [employer] Operator: Brandon Anaya MD CO2 [Moles/Vol] 26 mmol/L Normal 20-31 [facility] Comment on above: Performed By: #### C DP, CP, LIP, TROPI, LIPRF, GLYHGB #### [address] [address] [employer] Operator: Brandon Anaya MD Creatinine [Mass/Vol] 0.48 mg/dL Low 0.50-0.90 [facility] Comment on above: Performed By: #### C DP, CP, LIP, TROPI, LIPRF, GLYHGB #### [address] [address] [employer] Operator: Brandon Anaya MD GFR, Amer >60 Normal >60 [facility] Comment on above: Performed By: #### C DP, CP, LIP, TROPI, LIPRF, GLYHGB #### [address] [address] [employer] Operator: Brandon Anaya MD GFR,non Amer >60 Normal >60 [facility] Comment on above: Performed By: #### C DP, CP, LIP, TROPI, LIPRF, GLYHGB #### [facility] Reissued [address] [place] [address] R[employer] Operator: Brandon Anaya MD Glucose [Mass/Vol] 104 mg/dL High 70-99 [facility] Comment on above: Performed By: #### C DP, CP, LIP, TROPI, LIPRF, GLYHGB #### [facility] Reissued [address] [place] [address] R[employer] Operator: Brandon Anaya MD Potassium [Moles/Vol] 3.7 mmol/L Normal 3.7-5.3 [facility] Comment on above: Performed By: #### C DP, CP, LIP, TROPI, LIPRF, GLYHGB #### [address] [address] [employer] Operator: Brandon Anaya MD Sodium [Moles/Vol] 130 mmol/L Low 135-144 [facility] Comment on above: Performed By: #### C DP, CP, LIP, TROPI, LIPRF, GLYHGB #### [address] [address] [employer]ting [employer] Operator: Brandon Anaya MD Urea nitrogen [Mass/Vol] 19 mg/dL Normal 8-23 [facility] Comment on above: Performed By: #### C DP, CP, LIP, TROPI, LIPRF, GLYHGB #### [address] [address] R[employer] Cutting [employer] Operator: Brandon Anaya MD BUN/CRE Ratio NOT REPORTED Normal - [facility] Comment on above: Performed By: #### C DP, CP, LIP, TROPI, LIPRF, GLYHGB #### [facility] Reissued [address] [place] [address] [employer]ting [employer] Operator: Brandon Anaya MD Staging: NOT REPORTED Normal [facility] Comment on above: Performed By: #### C DP, CP, LIP, TROPI, LIPRF, GLYHGB #### [facility] Reissued [address] [place] [address] [employer] Operator: Brandon Anaya MD Basic Metabolic Panel w/ Ref kervin to MGon 10-14-2019 Anion gap [Moles/Vol] 13 mmol/L 9 - 17 mmol/L [place], [place] Bun/Cre Ratio NOT REPORTED [place] Calcium [Mass/Vol] 8.5 mg/dL Low 8.6 - 10. 4 mg/dL [place] Chloride [Moles/Vol] 91 mmol/L Low 98 - 10 7 mmol/L [place] CO2 [Moles/Vol] 26 mmol/L 20 - 31 mmol/L [place] Creatinine [Mass/Vol] 0.48 mg/dL Low 0.5 - 0.9 mg/dL [place] GFR >60 >60 mL/min [place] GFR Non- >60 >60 mL/min [place] GFR/1.73 sq M predicted among non-blacks MDRD (S/P/Bld) [Vol rate/Area] [place] Comment on above: Average GFR for 70 o r more years old: 75 mL/min/1.73sq m Chronic Kidney Disease: <60 mL/min/1.73sq m Kidney failure: <15 mL/min/1.73sq m eGFR calculated using average adult body mass. Additional eGFR calculator available at: http://www.[employer]/multiple_crcl_2012.htm GFR/1.73 sq M predicted among non-blacks MDRD (S/P/Bld) [Vol rate/Area] NOT REPORTED [place] Glucose [Mass/Vol] 104 mg/dL High 70 - 99 mg/dL [place] Interpretation and review of laboratory results Abnormal [place] Potassium [Moles/Vol] 3.7 mmol/L 3.7 - 5.3 mmol/L [place] Sodium [Moles/Vol] 130 mmol/L Low 135 - 144 mmol/L [place] Urea nitrogen [Mass/Vol] 19 mg/dL 8 - 23 mg/dL [place] CBC auto differentialon 09-25 Atypical Lymphocytes 3 % [place] Atypical Lymphocytes Absolute 0.30 k/uL [place] Basophils (Bld) [#/Vol] 0.00 10*3/uL [place] Basophils/100 WBC (Bld) 0 % 0 - 2 % [place] Differential Type NOT REPORTED [place] Eosinophils (Bld) [#/Vol] 0.10 10*3/uL [place] Eosinophils/100 WBC (Bld) 1 % 1 - 4 % [place] Erythrocyte distribution width (RBC) [Ratio] 14.7 % High 11.8 - 14.4 % [place] Hematocrit (Bld) [Volume fraction] 39.5 % 36.3 - 47.1 % [place] Hemoglobin (Bld) [Mass/Vol] 12.9 g/dL 11.9 - 15.1 g/dL [place] Immature granulocytes (Bld) [#/Vol] 0.10 10*3/uL [place] Immature granulocytes (Bld) [#/Vol] 1 % High 0 [place] Interpretation and review of laboratory results Abnormal [place] Lymphocytes (Bld) [#/Vol] 2.80 10*3/uL [place] Lymphocytes/100 WBC (Bld) 28 % 24 - 44 % [place] MCH (RBC) [Entitic mass] 29.5 pg 25.2 - 33.5 pg [place] MCHC (RBC) [Mass/Vol] 32.7 g/dL 28.4 - 34.8 g/dL [place] MCV (RBC) [Entitic vol] 90.2 fL 82.6 - 102.9 fL [place] Monocytes (Bld) [#/Vol] 0.50 10*3/uL [place] Monocytes/100 WBC (Bld) 5 % 1 - 7 % [place] Morphology Alfredo (Bld) [Interp] ANISOCYTOSIS PRESENT [place] Platelet mean volume (Bld) [Entitic vol] 10.1 fL 8.1 - 13.5 fL [place] Platelets (Bld) [#/Vol] 190 10*3/uL [place] Platelets (Bld) [#/Vol] NOT REPORTED [place] RBC (Bld) [#/Vol] 4.38 10*6/uL 3.95 - 5.1 1 m/uL [place] RBC morphology finding Nom (Bld) NOT REPORTED [place] Segmented neutrophils/100 WBC (Bld) 62 % 36 - 66 % [place] Segs Absolute 6.20 [place] WBC (Bld) [#/Vol] 10.0 10*3/uL [place] WBC (Bld) [#/Vol] 0.0 10*3/uL 0.0 per 10 0 WBC [place] WBC Morphology NOT REPORTED [place] CBC with Diffon 10-14-2019 Abs. Atypical Lymphs 0.30 k/uL Normal [facility] Comment on above: Performed By: #### C DP, CP, LIP, TROPI, LIPRF, GLYHGB #### [facility] Reissued [address] [place], [place] [id number] Rafter Cutting Machine Operator: Brandon Anaya MD Abs. Basophil 0.00 k/uL Normal 0.0-0.2 [facility] Comment on above: Performed By: #### C DP, CP, LIP, TROPI, LIPRF, GLYHGB #### [facility] Reissued [address] [place] [phone] Rafter Cutting Machine Operator: Brandon Anaya MD Abs.Imm.Granulocyte 0.10 k/uL Normal 0.00-0.30 [facility] Comment on above: Performed By: #### C DP, CP, LIP, TROPI, LIPRF, GLYHGB #### [facility] Reissued [address] [place] [phone] Rafter Cutting Machine Operator: Brandon Anaya MD Abs.Neutrophil (Seg) 6.20 k/uL Normal 1.8-7.7 [facility] Comment on above: Performed By: #### C DP, CP, LIP, TROPI, LIPRF, GLYHGB #### [address] [address] Rafter Cutting Machine Operator: Brandon Anaya MD Atypical Lymphs 3 % Normal [facility] Comment on above: Performed By: #### C DP, CP, LIP, TROPI, LIPRF, GLYHGB #### [place] [address] Rafter Cutting Machine Operator: Brandon Anaya MD Basophils/100 WBC (Bld) 0 % Normal 0-2 [facility] Comment on above: Performed By: #### C DP, CP, LIP, TROPI, LIPRF, GLYHGB #### [place] [address] Rafter Cutting Machine Operator: Brandon Anaya MD Eosinophils (Bld) [#/Vol] 0.10 10*3/uL Normal 0.0-0.4 [facility] Comment on above: Performed By: #### C DP, CP, LIP, TROPI, LIPRF, GLYHGB #### [place] [address] Rafter Cutting Machine Operator: Brandon Anaya MD Eosinophils/100 WBC (Bld) 1 % Normal 1-4 [facility] Comment on above: Performed By: #### C DP, CP, LIP, TROPI, LIPRF, GLYHGB #### [place] [address] Rafter Cutting Machine Operator: Brandon Anaya MD Immature granulocytes (Bld) [#/Vol] 1 % High 0 [facility] Comment on above: Performed By: #### C DP, CP, LIP, TROPI, LIPRF, GLYHGB #### [address] [address] Rafter Cutting Machine Operator: Brandon Anaya MD Lymphocytes (Bld) [#/Vol] 2.80 10*3/uL Normal 1.0-4.8 [facility] Comment on above: Performed By: #### C DP, CP, LIP, TROPI, LIPRF, GLYHGB #### [address] [address] Rafter Cutting Machine Operator: Brandon Anaya MD Lymphocytes/100 WBC (Bld) 28 % Normal 24-44 [facility] Comment on above: Performed By: #### C DP, CP, LIP, TROPI, LIPRF, GLYHGB #### [facility] Reissued [address] [place] [address] Rafter Cutting Machine Operator: Brandon Anaya MD Monocytes (Bld) [#/Vol] 0.50 10*3/uL Normal 0.1-0.8 [facility] Comment on above: Performed By: #### C DP, CP, LIP, TROPI, LIPRF, GLYHGB #### [address] [address] Rafter Cutting Machine Operator: Brandon Anaya MD Monocytes/100 WBC (Bld) 5 % Normal 1-7 [facility] Comment on above: Performed By: #### C DP, CP, LIP, TROPI, LIPRF, GLYHGB #### [address] [address] Rafter Cutting Machine Operator: Brandon Anaya MD Morphology Alfredo (Bld) [Interp] ANISOCYTOSIS PRESENT Normal [facility] Comment on above: Performed By: #### C DP, CP, LIP, TROPI, LIPRF, GLYHGB #### [address] [address] Rafter Cutting Machine Operator: Brandon Anaya MD Neutrophil (Seg) 62 % Normal 36-66 [facility] Comment on above: Performed By: #### C DP, CP, LIP, TROPI, LIPRF, GLYHGB #### [address] [address] Rafter Cutting [employer] Operator: Brandon Anaya MD Erythrocyte distribution width (RBC) [Ratio] 14.7 % High 11.8-14.4 [facility] Comment on above: Performed By: #### C DP, CP, LIP, TROPI, LIPRF, GLYHGB #### [address] [address] R[employer] Cutting [employer] Operator: Brandon Anaya MD Hematocrit (Bld) [Volume fraction] 39.5 % Normal 36.3-47.1 [facility] Comment on above: Performed By: #### C DP, CP, LIP, TROPI, LIPRF, GLYHGB #### [place] [address] Rafter Cutting Machine Operator: Brandon Anaya MD Hemoglobin (Bld) [Mass/Vol] 12.9 g/dL Normal 11.9-15.1 [facility] Comment on above: Performed By: #### C DP, CP, LIP, TROPI, LIPRF, GLYHGB #### [address] [address] Rafter Cutting [employer] Operator: Brandon Anaya MD MCH (RBC) [Entitic mass] 29.5 pg Normal 25.2-33.5 [facility] Comment on above: Performed By: #### C DP, CP, LIP, TROPI, LIPRF, GLYHGB #### [address] [address] Rafter Cutting Machine Operator: Brandon Anaya MD MCHC (RBC) [Mass/Vol] 32.7 g/dL Normal 28.4-34.8 [facility] Comment on above: Performed By: #### C DP, CP, LIP, TROPI, LIPRF, GLYHGB #### [address] [address] Rafter Cutting [employer] Operator: Brandon Anaya MD MCV (RBC) [Entitic vol] 90.2 fL Normal 82.6-102.9 [facility] Comment on above: Performed By: #### C DP, CP, LIP, TROPI, LIPRF, GLYHGB #### [address] [address] Rafter Cutting Machine Operator: Brandon Anaya MD NRBC Automated 0.0 per [address] [facility] Comment on above: Performed By: #### C DP, CP, LIP, TROPI, LIPRF, GLYHGB #### [address] [address] Rafter Cutting [employer] Operator: Brandon Anaya MD Platelet mean volume (Bld) [Entitic vol] 10.1 fL Normal 8.1-13.5 [facility] Comment on above: Performed By: #### C DP, CP, LIP, TROPI, LIPRF, GLYHGB #### [place] [address] Rafter Cutting Machine Operator: Brandon Anaya MD Platelets (Bld) [#/Vol] 190 10*3/uL Normal 138-453 [facility] Comment on above: Performed By: #### C DP, CP, LIP, TROPI, LIPRF, GLYHGB #### [address] [address] R[employer] Cutting [employer] Operator: Brandon Anaya MD RBC (Bld) [#/Vol] 4.38 10*6/uL Normal 3.95-5.11 [facility] Comment on above: Performed By: #### C DP, CP, LIP, TROPI, LIPRF, GLYHGB #### [address] [address] Rafter Cutting [employer] Operator: Brandon Anaya MD WBC (Bld) [#/Vol] 10.0 10*3/uL Normal 3.5-11.3 [facility] Comment on above: Performed By: #### C DP, CP, LIP, TROPI, LIPRF, GLYHGB #### [address] [place] [address] Rafter Cutting Machine Operator: Brandon Anaya MD Auto Diff Performed NOT REPORTED Normal [facility] Comment on above: Performed By: #### C DP, CP, LIP, TROPI, LIPRF, GLYHGB #### [facility] [address] [place] [address] Rafter Cutting Machine Operator: Brandon Anaya MD Platelets (Bld) [#/Vol] NOT REPORTED Normal [facility] Comment on above: Performed By: #### C DP, CP, LIP, TROPI, LIPRF, GLYHGB #### [facility] [address] [place] [address] Rafter Cutting [employer] Operator: Brandon Anaya MD RBC morphology finding Nom (Bld) NOT REPORTED Normal [facility] Comment on above: Performed By: #### C DP, CP, LIP, TROPI, LIPRF, GLYHGB #### [facility] [address] [place] [address] Rafter Cutting Machine Operator: Brandon Anaya MD WBC Morphology NOT REPORTED Normal [facility] Comment on above: Performed By: #### C DP, CP, LIP, TROPI, LIPRF, GLYHGB #### [facility] [address] [place] [address] R[employer]ting Machine Operator: Brandon Anaya MD METANEPHRINES PLASMA FREEon 10-14-2019 Metaneph/Plasma Interp See Note [facility], [place] Comment on above: (NOTE) INTERPRETIVE [...] should be considered. See Compliance Statement B: [employer] Performed By: [facility] [address] [place] [address] Meterman: Nik Rosas MD, MS Metanephrine 0.14 nmol/L 0 - 0.49 nmol/L [place], [place] Normetanephrine 0.73 nmol/L 0 - 0.89 nmol/L [facility], [place] Metanephrine, Plasmaon 10-13 Metaneph Interp See Note Normal [facility] Comment on above: Result Comment: (NOT [...] should be considered. See Compliance Statement B: [employer] Performed By: [facility] [address] [place] [address] Meterman: Nik Rosas MD, MS Performed By: #### C DP, CP, LIP, TROPI, LIPRF, GLYHGB #### [facility] [place], [place] [id number] Rafter Cutting Machine Operator: Brandon Anaya MD Metanephrine 0.14 nmol/L Normal 0.00-0.49 [facility] Comment on above: Performed By: #### C DP, CP, LIP, TROPI, LIPRF, GLYHGB #### [facility] [place] [address] Rafter Cutting Machine Operator: Brandon Anaya MD Normetanephrine 0.73 nmol/L Normal 0.00-0.89 [facility] Comment on above: Performed By: #### C JUAN GARZA, LIP, TROPI, LIPRF, GLYHGB #### [facility] [address] [place], [place] [id number] [employer] Operator: Brandon Anaya MD POC Glucose Fingerstickon Glucose [Mass/Vol] 86 mg/dL 65 - 105 mg/dL [place] Glucose [Mass/Vol] 105 mg/dL 65 - 105 mg/dL [place] Glucose [Mass/Vol] 159 mg/dL High 65 - 105 mg/dL [place] Interpretation and review of laboratory results Abnormal [place] Glucose [Mass/Vol] 113 mg/dL High 65 - 105 mg/dL [place] Interpretation and review of laboratory results Abnormal [place] T. pallidum Abon 10-14-2019 T. pallidum, IgG NONREACTIVE NONREACTIVE [place], [place] Comment on above: T. pallidum antibodies are not detected. There is no serological evidence of infection with T. pallidum (early primary syphilis cannot be excluded). Retest in 2-4 weeks if syphilis is clinically suspect. T.pallidum Ab Screenon 10-13 T.pallidum Ab Screen NONREACTIVE Normal NR [facility] Comment on above: Result Comment: T. pallidum antibodies are not detected. There is no serological evidence of infection with T. pallidum (early primary syphilis cannot be excluded). Retest in 2-4 weeks if syphilis is clinically suspect. Performed By: #### C DP, CP, LIP, TROPI, LIPRF, GLYHGB #### [facility] [address], [place] [phone] [employer] Operator: Brandon Anaya MD AMMONIAon 10-13-2019 Ammonia (P) [Mass/Vol] 28 umol/L 11 - 51 umol/L [place] Ammoniaon 10-13-2019 Ammonia (P) [Mass/Vol] 28 umol/L Normal 11-51 [place] Comment on above: Performed By: #### C DP, CP, LIP, TROPI, LIPRF, GLYHGB #### [facility] [address] [place] [address] [employer] Operator: Brandon Anaya MD BLOOD GAS, VENOUSon 10-13-19 20 Andrés Test NOT REPORTED [facility] [employer] [place], [place] aPTT Coag (Bld) [Time] 37.0 s [facility] [employer] [place], [place] Carboxyhemoglobin 1.3 % 0 - 5 % [facility] [employer] [place], [place] Comment on above: Reference Range: Non-Smokers 0-2% Average Smoker 2-4% Heavy Smoker <10% FIO2 ROOM AIR [facility] [employer], MD HCO3, Venous 28.4 mmol/L 24 - 30 mmol/L [facility] [employer] [place], [place] Interpretation and review of laboratory results Abnormal [facility] [employer] [place], [place] Methemoglobin NOT REPORTED 0 - 1.5 % [facility] [employer] [place] Mode NOT REPORTED [facility] [employer] [place], [place] Negative Base Excess, Noah NOT REPORTED 0 - 2 mmol/L [facility] [employer] [place], [place] NOTIFICATION NOT REPORTED [facility] [employer] [place], MD NOTIFICATION TIME NOT REPORTED [facility] [employer] [place], [place] O2 Device/Flow/% NOT REPORTED [facility] [employer] [place], [place] Oxygen saturation in Blood 78.1 % 60 - 85 % [facility] [employer] [place], [place] Oxyhemoglobin NOT REPORTED 95 - 98 % [facility] pCO2, Noah 42.6 [facility] pCO2, Noah, Temp Adj NOT REPORTED [facility] [employer] [place], [place] Peep/Cpap NOT REPORTED [facility] pH, Noah 7.439 High [facility] MD pH, Noah, Temp Adj NOT REPORTED [facility] pO2, Noah 41.1 [facility] [employer] [place], [place] pO2, Noah, Temp Adj NOT REPORTED [facility] [employer] [place], MD Positive Base Excess, Noah 4.2 mmol/L High 0 - 2 mmol/L [facility] PSV NOT REPORTED [facility] [employer] [place], [place] Pt. Position NOT REPORTED [facility] [employer] [place], [place] Sample Site NOT REPORTED [facility] [employer], [place] Set Rate NOT REPORTED [place], [place] Text for Respiratory NOT REPORTED [facility], CLARA Total Hb NOT REPORTED 12 - 16 g/dl [place], [place] Total Rate NOT REPORTED [place] VT NOT REPORTED [place] Basic Metab w/rfx MGon 10-12 Potassium [Moles/Vol] 3.4 mmol/L Low 3.7-5.3 [facility] Comment on above: Performed By: #### C DP, CP, LIP, TROPI, LIPRF, GLYHGB #### [employer] [address] [place] [address] [phone] [employer] Operator: Brandon Anaya MD (cont.) [facility] Comment on above: Result Comment: Aver age GFR for 70 or more years old: 75 mL/min/1.73sq m Chronic Kidney Disease: <60 mL/min/1.73sq m Kidney failure: <15 mL/min/1.73sq m eGFR calculated using average adult body mass. Additional eGFR calculator available at: http://www.[employer]/multiple_crcl_2012.htm Performed By: #### C DP, CP, LIP, TROPI, LIPRF, GLYHGB #### [employer] [address] [place] [address] [phone] [employer] Operator: Brandon Anaya MD Anion gap [Moles/Vol] 16 mmol/L Normal 9-17 [facility] Comment on above: Performed By: #### C DP, CP, LIP, TROPI, LIPRF, GLYHGB #### [employer] [address] [place] [address] [phone] [employer]: Brandon Anaya MD Calcium [Mass/Vol] 9.0 mg/dL Normal 8.6-10.4 [facility] Comment on above: Performed By: #### C DP, CP, LIP, TROPI, LIPRF, GLYHGB #### [facility] Reissued [address] [place] [address] [phone] [employer] Operator: Brandon Anaya MD Chloride [Moles/Vol] 90 mmol/L Low 98-107 [facility] Comment on above: Performed By: #### C DP, CP, LIP, TROPI, LIPRF, GLYHGB #### [facility] [address] [place] [phone] [employer] Operator: Brandon Anaya MD CO2 [Moles/Vol] 25 mmol/L Normal 20-31 [facility] Comment on above: Performed By: #### C DP, CP, LIP, TROPI, LIPRF, GLYHGB #### [facility] [address] [place] [phone] [employer]: Brandon Anaya MD Creatinine [Mass/Vol] 0.47 mg/dL Low 0.50-0.90 [facility] Comment on above: Performed By: #### C DP, CP, LIP, TROPI, LIPRF, GLYHGB #### [facility] [address] [place] [phone] [employer]: Brandon Anaya MD GFR, Amer >60 Normal >60 [facility] Comment on above: Performed By: #### C DP, CP, LIP, TROPI, LIPRF, GLYHGB #### [facility] [address] [place] [phone] [employer] Operator: Brandon Anaya MD GFR,non Amer >60 Normal >60 [facility] Comment on above: Performed By: #### C DP, CP, LIP, TROPI, LIPRF, GLYHGB #### [facility] [address] [place] [phone] [employer] Operator: Brandon Anaya MD Glucose [Mass/Vol] 113 mg/dL High 70-99 [facility] Comment on above: Performed By: #### C DP, CP, LIP, TROPI, LIPRF, GLYHGB #### [facility] [address] [place] [address] [phone] [employer] Operator: Brandon Anaya MD Sodium [Moles/Vol] 131 mmol/L Low 135-144 [facility] Comment on above: Performed By: #### C DP, CP, LIP, TROPI, LIPRF, GLYHGB #### [facility] [address], [place] [phone] [employer] Operator: Brandon Anaya MD Urea nitrogen [Mass/Vol] 16 mg/dL Normal 8- [facility] Comment on above: Performed By: #### C DP, CP, LIP, TROPI, LIPRF, GLYHGB #### [facility] [address] [place] [address] [employer] Operator: Brandon Anaya MD BUN/CRE Ratio NOT REPORTED Normal - [facility] Comment on above: Performed By: #### C DP, CP, LIP, TROPI, LIPRF, GLYHGB #### [facility] [address], [place] [phone] [employer] Operator: Brandon Anaya MD Staging: NOT REPORTED Normal [facility] Comment on above: Performed By: #### C DP, CP, LIP, TROPI, LIPRF, GLYHGB #### [facility] [address], [place] [phone] [employer] Operator: Brandon Anaya MD Basic Metabolic Panel w/ Ref kervin to MGon 10-13-2019 Anion gap [Moles/Vol] 16 mmol/L 9 - 17 mmol/L [place] Bun/Cre Ratio NOT REPORTED [place] Calcium [Mass/Vol] 9.0 mg/dL 8.6 - 10. 4 mg/dL [place] Chloride [Moles/Vol] 90 mmol/L Low 98 - 10 7 mmol/L [place] CO2 [Moles/Vol] 25 mmol/L 20 - 31 mmol/L [place] Creatinine [Mass/Vol] 0.47 mg/dL Low 0.5 - 0.9 mg/dL [place] GFR >60 >60 mL/min [place] GFR Non- >60 >60 mL/min [place] GFR/1.73 sq M predicted among non-blacks MDRD (S/P/Bld) [Vol rate/Area] NOT REPORTED [place] GFR/1.73 sq M predicted among non-blacks MDRD (S/P/Bld) [Vol rate/Area] [place] Comment on above: Average GFR for 70 o r more years old: 75 mL/min/1.73sq m Chronic Kidney Disease: <60 mL/min/1.73sq m Kidney failure: <15 mL/min/1.73sq m eGFR calculated using average adult body mass. Additional eGFR calculator available at: http://www.V[employer]ch/multiple_crcl_2012.htm Glucose [Mass/Vol] 113 mg/dL High 70 - 99 mg/dL [place] Interpretation and review of laboratory results Abnormal [place] Potassium [Moles/Vol] 3.4 mmol/L Low 3.7 - 5.3 mmol/L [place] Sodium [Moles/Vol] 131 mmol/L Low 135 - 144 mmol/L [place] Urea nitrogen [Mass/Vol] 16 mg/dL 8 - 23 mg/dL [place] CBC auto differentialon 09-24 Basophils (Bld) [#/Vol] 0.07 10*3/uL [place] Basophils/100 WBC (Bld) 1 % 0 - 2 % [place] Differential Type NOT REPORTED [place] Eosinophils (Bld) [#/Vol] 10*3/uL [place] Eosinophils/100 WBC (Bld) 0 % Low 1 - 4 % [place] Erythrocyte distribution width (RBC) [Ratio] 15.0 % High 11.8 - 14.4 % [place] Hematocrit (Bld) [Volume fraction] 45.5 % 36.3 - 47.1 % [place] Hemoglobin (Bld) [Mass/Vol] 14.5 g/dL 11.9 - 15.1 g/dL [place] Immature granulocytes (Bld) [#/Vol] 0.14 10*3/uL [place] Immature granulocytes (Bld) [#/Vol] 1 % High 0 [place] Interpretation and review of laboratory results Abnormal [place] Lymphocytes (Bld) [#/Vol] 2.84 10*3/uL [place] Lymphocytes/100 WBC (Bld) 23 % Low 24 - 43 % [place] MCH (RBC) [Entitic mass] 29.8 pg 25.2 - 33.5 pg [place] MCHC (RBC) [Mass/Vol] 31.9 g/dL 28.4 - 34.8 g/dL [place] MCV (RBC) [Entitic vol] 93.4 fL 82.6 - 102.9 fL [place] Monocytes (Bld) [#/Vol] 1.22 10*3/uL High [place] Monocytes/100 WBC (Bld) 10 % 3 - 12 % [place] Platelet mean volume (Bld) [Entitic vol] 10.5 fL 8.1 - 13.5 fL [place] Platelets (Bld) [#/Vol] NOT REPORTED [place] Platelets (Bld) [#/Vol] 210 10*3/uL [place] RBC (Bld) [#/Vol] 4.87 10*6/uL 3.95 - 5.1 1 m/uL [place] RBC morphology finding Nom (Bld) ANISOCYTOSIS PRESENT [place] Segmented neutrophils/100 WBC (Bld) 65 % 36 - 65 % [place] Segs Absolute 8.01 [place] WBC (Bld) [#/Vol] 12.3 10*3/uL High [place] WBC (Bld) [#/Vol] 0.0 10*3/uL 0.0 per 10 0 WBC [place] WBC Morphology NOT REPORTED [place] CBC with Diffon 08-19-2020 Abs. Basophil 0.07 k/uL Normal 0.00-0.20 [facility] Comment on above: Performed By: #### C DP, CP, LIP, TROPI, LIPRF, GLYHGB #### [address] [address] [employer]: Brandon Anaya MD Abs.Imm.Granulocyte 0.14 k/uL Normal 0.00-0.30 [facility] Comment on above: Performed By: #### C DP, CP, LIP, TROPI, LIPRF, GLYHGB #### [address] [address] [employer]: Brandon Anaya MD Abs.Neutrophil (Seg) 8.01 k/uL Normal 1.50-8.10 [facility] Comment on above: Performed By: #### C DP, CP, LIP, TROPI, LIPRF, GLYHGB #### [address] [address] [employer]: Brandon Anaya MD Basophils/100 WBC (Bld) 1 % Normal 0-2 [facility] Comment on above: Performed By: #### C DP, CP, LIP, TROPI, LIPRF, GLYHGB #### [address] [address] [employer]: Brandon Anaya MD Eosinophils (Bld) [#/Vol] 10*3/uL Normal 0.00-0.44 [facility] Comment on above: Performed By: #### C DP, CP, LIP, TROPI, LIPRF, GLYHGB #### [address] [address] [employer] Operator: Brandon Anaya MD Eosinophils/100 WBC (Bld) 0 % Low 1-4 [facility] Comment on above: Performed By: #### C DP, CP, LIP, TROPI, LIPRF, GLYHGB #### [facility] Reissued [address] [place] [phone] [employer] Operator: Brandon Anaya MD Erythrocyte distribution width (RBC) [Ratio] 15.0 % High 11.8-14.4 [facility] Comment on above: Performed By: #### C DP, CP, LIP, TROPI, LIPRF, GLYHGB #### [address] [address] [employer] Operator: Brandon Anaya MD Hematocrit (Bld) [Volume fraction] 45.5 % Normal 36.3-47.1 [facility] Comment on above: Performed By: #### C DP, CP, LIP, TROPI, LIPRF, GLYHGB #### [address] [address] [employer] Operator: Brandon Anaya MD Hemoglobin (Bld) [Mass/Vol] 14.5 g/dL Normal 11.9-15.1 [facility] Comment on above: Performed By: #### C DP, CP, LIP, TROPI, LIPRF, GLYHGB #### [address] [address] [employer]: Brandon Anaya MD Immature granulocytes (Bld) [#/Vol] 1 % High 0 [facility] Comment on above: Performed By: #### C DP, CP, LIP, TROPI, LIPRF, GLYHGB #### [address] [address] [employer] Operator: Brandon Anaya MD Lymphocytes (Bld) [#/Vol] 2.84 10*3/uL Normal 1.10-3.70 [facility] Comment on above: Performed By: #### C DP, CP, LIP, TROPI, LIPRF, GLYHGB #### [address] [address] [employer]: Brandon Anaya MD Lymphocytes/100 WBC (Bld) 23 % Low 24-43 [facility] Comment on above: Performed By: #### C DP, CP, LIP, TROPI, LIPRF, GLYHGB #### [facility]issued [address] [place] [phone] [employer] Operator: Brandon Anaya MD MCH (RBC) [Entitic mass] 29.8 pg Normal 25.2-33.5 [facility] Comment on above: Performed By: #### C DP, CP, LIP, TROPI, LIPRF, GLYHGB #### [address] [address] [employer]: Brandon Anaya MD MCHC (RBC) [Mass/Vol] 31.9 g/dL Normal 28.4-34.8 [facility] Comment on above: Performed By: #### C DP, CP, LIP, TROPI, LIPRF, GLYHGB #### [place] [address] [employer] Operator: Brandon Anaya MD MCV (RBC) [Entitic vol] 93.4 fL Normal 82.6-102.9 [facility] Comment on above: Performed By: #### C DP, CP, LIP, TROPI, LIPRF, GLYHGB #### [place] [address] [employer] Operator: Brandon Anaya MD Monocytes (Bld) [#/Vol] 1.22 10*3/uL High 0.10-1.20 [facility] Comment on above: Performed By: #### C DP, CP, LIP, TROPI, LIPRF, GLYHGB #### [address] [address] [employer]: Brandon Anaya MD Monocytes/100 WBC (Bld) 10 % Normal 3-12 [facility] Comment on above: Performed By: #### C DP, CP, LIP, TROPI, LIPRF, GLYHGB #### [address] [address] [employer]: Brandon Anaya MD Neutrophil (Seg) 65 % Normal 36-65 [facility] Comment on above: Performed By: #### C DP, CP, LIP, TROPI, LIPRF, GLYHGB #### [address] [address] [employer]: Brandon Anaya MD NRBC Automated 0.0 per [address] [facility] Comment on above: Performed By: #### C DP, CP, LIP, TROPI, LIPRF, GLYHGB #### [address] [address] [employer]: Brandon Anaya MD Platelet mean volume (Bld) [Entitic vol] 10.5 fL Normal 8.1-13.5 [facility] Comment on above: Performed By: #### C DP, CP, LIP, TROPI, LIPRF, GLYHGB #### [address] [address] [employer]: Brandon Anaya MD Platelets (Bld) [#/Vol] 210 10*3/uL Normal 138-453 [facility] Comment on above: Performed By: #### C DP, CP, LIP, TROPI, LIPRF, GLYHGB #### [address] [address] [employer]: Brandon Anaya MD RBC (Bld) [#/Vol] 4.87 10*6/uL Normal 3.95-5.11 [facility] Comment on above: Performed By: #### C DP, CP, LIP, TROPI, LIPRF, GLYHGB #### [address] [address] [employer]: Brandon Anaya MD RBC morphology finding Nom (Bld) ANISOCYTOSIS PRESENT Normal [facility] Comment on above: Performed By: #### C DP, CP, LIP, TROPI, LIPRF, GLYHGB #### [address] [address] [employer]: Brandon Anaya MD WBC (Bld) [#/Vol] 12.3 10*3/uL High 3.5-11.3 [facility] Comment on above: Performed By: #### C DP, CP, LIP, TROPI, LIPRF, GLYHGB #### [address] [address] [employer]: Brandon Anaya MD Auto Diff Performed NOT REPORTED Normal [facility] Comment on above: Performed By: #### C DP, CP, LIP, TROPI, LIPRF, GLYHGB #### [address] [address] [employer]: Brandon Anaya MD Platelets (Bld) [#/Vol] NOT REPORTED Normal [facility] Comment on above: Performed By: #### C DP, CP, LIP, TROPI, LIPRF, GLYHGB #### [address] [address] [employer]: Brandon Anaya MD WBC Morphology NOT REPORTED Normal [facility] Comment on above: Performed By: #### C DP, CP, LIP, TROPI, LIPRF, GLYHGB #### [address] [address] [employer]: Brandon Anaya MD Magnesiumon 10-13-2019 Magnesium [Mass/Vol] 2.2 mg/dL Normal 1.6-2.6 [facility] Comment on above: Performed By: #### C DP, CP, LIP, TROPI, LIPRF, GLYHGB #### [address] [address] [employer]: Brandon Anaya MD Magnesium [Mass/Vol] 2.2 mg/dL 1.6 - 2 .6 mg/dL [place] POC Glucose Fingerstickon Glucose [Mass/Vol] 121 mg/dL High 65 - 105 mg/dL [place] Interpretation and review of laboratory results Abnormal [place] Glucose [Mass/Vol] 100 mg/dL 65 - 105 mg/dL [place] Glucose [Mass/Vol] 104 mg/dL 65 - 105 mg/dL [place] Glucose [Mass/Vol] 123 mg/dL High 65 - 105 mg/dL [place] Interpretation and review of laboratory results Abnormal [place] Venous Blood Gaseson 020 Body Temp. 37.[address] [facility] Comment on above: Performed By: #### C DP, CP, LIP, TROPI, LIPRF, GLYHGB #### [address] [phone] [employer]: Brandon Anaya MD Carboxy Hgb 1.3 % Normal 0-5 [facility] Comment on above: Result Comment: Reference Range: Non-Smokers 0-2% Average Smoker 2-4% Heavy Smoker <10% Performed By: #### C DP, CP, LIP, TROPI, LIPRF, GLYHGB #### [address] [phone] [employer]: Brandon Anaya MD FIO2 ROOM AIR Normal [facility] Comment on above: Performed By: #### C DP, CP, LIP, TROPI, LIPRF, GLYHGB #### [address] [phone] [employer]: Brandon Anaya MD HCO3 (Bld) [Moles/Vol] 28.4 mmol/L Normal 24-30 M [facility] Comment on above: Performed By: #### C DP, CP, LIP, TROPI, LIPRF, GLYHGB #### [address] [address] [employer]: Brandon Anaya MD Oxygen (Bld) [Partial pressure] 41.1 mm[Hg] Normal 30-50 [facility] Comment on above: Performed By: #### C DP, CP, LIP, TROPI, LIPRF, GLYHGB #### [address] [address] [employer]: Brandon Anaya MD Oxygen saturation in Blood 78.1 % Normal 60.0-85.0 [facility] Comment on above: Performed By: #### C DP, CP, LIP, TROPI, LIPRF, GLYHGB #### [address] [address] [employer]: Brandon Anaya MD pCO2 42.6 Normal 39-55 [facility] Comment on above: Performed By: #### C DP, CP, LIP, TROPI, LIPRF, GLYHGB #### [address] [address] [employer]: Brandon Anaya MD pH (Bld) 7.439 [pH] High 7.320-7.420 [facility] Comment on above: Performed By: #### C DP, CP, LIP, TROPI, LIPRF, GLYHGB #### [address] [address] [employer]: Brandon Anaya MD Positive Base Excess 4.2 mmol/L High 0.0-2.0 [facility] Comment on above: Performed By: #### C DP, CP, LIP, TROPI, LIPRF, GLYHGB #### [address] [address] [employer]: Brandon Anaya MD Andrés Test NOT REPORTED Normal [facility] Comment on above: Performed By: #### C DP, CP, LIP, TROPI, LIPRF, GLYHGB #### [address] [address] [employer]: Brandon Anaya MD Methemoglobin NOT REPORTED Normal 0.0-1.5 [facility] Comment on above: Performed By: #### C DP, CP, LIP, TROPI, LIPRF, GLYHGB #### [facility] [address] [place] [address] [employer]: Brandon Anaya MD Mode NOT REPORTED Normal [facility] Comment on above: Performed By: #### C DP, CP, LIP, TROPI, LIPRF, GLYHGB #### [address] [address] [employer]: Brandon Anaya MD Negative Base Excess NOT REPORTED Normal 0.0-2.0 [place] Comment on above: Performed By: #### C DP, CP, LIP, TROPI, LIPRF, GLYHGB #### [address] [address] [employer]: Brandon Anaya MD Notification Time NOT REPORTED Normal [facility] Comment on above: Performed By: #### C DP, CP, LIP, TROPI, LIPRF, GLYHGB #### [address] [address] [employer]: Brandon Anaya MD Notification: NOT REPORTED Normal [facility] Comment on above: Performed By: #### C DP, CP, LIP, TROPI, LIPRF, GLYHGB #### [address] [address] [employer]: Brandon Anaya MD O2 Device/Flow/% NOT REPORTED Normal [facility] Comment on above: Performed By: #### C DP, CP, LIP, TROPI, LIPRF, GLYHGB #### [address] [address] [employer]: Brandon Anaya MD Oxyhemoglobin NOT REPORTED Normal 95.0-98.0 [facility] Comment on above: Performed By: #### C DP, CP, LIP, TROPI, LIPRF, GLYHGB #### [address] [address] [employer]: Brandon Anaya MD Pco2 Adj'd for Temp. NOT REPORTED Normal 39-55 Me [facility] Comment on above: Performed By: #### C DP, CP, LIP, TROPI, LIPRF, GLYHGB #### [address] [address] [employer]: Brandon Anaya MD PEEP/CPAP NOT REPORTED Normal [facility] Comment on above: Performed By: #### C DP, CP, LIP, TROPI, LIPRF, GLYHGB #### [address] [address] [employer]: Brandon Anaya MD pH Adjst'd for Temp. NOT REPORTED Normal 7.320-7.420 M [facility] Comment on above: Performed By: #### C DP, CP, LIP, TROPI, LIPRF, GLYHGB #### [address] [address] [employer]: Brandon Anaya MD pO2 Adj'd for Temp. NOT REPORTED Normal 30-50 [facility] Comment on above: Performed By: #### C DP, CP, LIP, TROPI, LIPRF, GLYHGB #### [address] [address] [employer]: Brandon Anaya MD PSV NOT REPORTED Normal [facility] Comment on above: Performed By: #### C DP, CP, LIP, TROPI, LIPRF, GLYHGB #### [address] [place] [address] [employer]: Brandon Anaya MD Pt. Position NOT REPORTED Normal [facility] Comment on above: Performed By: #### C DP, CP, LIP, TROPI, LIPRF, GLYHGB #### [address] [address] [employer]: Brandon Anaya MD Set Rate NOT REPORTED Normal [facility] Comment on above: Performed By: #### C DP, CP, LIP, TROPI, LIPRF, GLYHGB #### [address] [address] [employer]: Brandon Anaya MD Site Drawn NOT REPORTED Normal [facility] Comment on above: Performed By: #### C DP, CP, LIP, TROPI, LIPRF, GLYHGB #### [address] [address] [employer]: Brandon Anaya MD Text for Respiratory NOT REPORTED Normal [place] Comment on above: Performed By: #### C DP, CP, LIP, TROPI, LIPRF, GLYHGB #### [address] [address] [employer]: Brandon Anaya MD Total Hb NOT REPORTED Normal 12.0-16.0 [facility] Comment on above: Performed By: #### C DP, CP, LIP, TROPI, LIPRF, GLYHGB #### [facility] [address] [place] [address] [employer]: Brandon Anaya MD Total Rate NOT REPORTED Normal [facility] Comment on above: Performed By: #### C DP, CP, LIP, TROPI, LIPRF, GLYHGB #### [facility] [address] [place] [address] [employer]: Brandon Anaya MD [place] NOT REPORTED Normal [facility] Comment on above: Performed By: #### C DP, CP, LIP, TROPI, LIPRF, GLYHGB #### [facility] [address] [place] [address] [employer]: Brandon [facility] Comment: NOT REPORTED Normal [facility] Comment on above: Performed By: #### C DP, CP, LIP, TROPI, LIPRF, GLYHGB #### [address] [address] [employer]: Brandon Anaya MD Basic Metab w/rfx [facility] 10-11 Potassium [Moles/Vol] 3.3 mmol/L Low 3.7-5.3 [facility] Comment on above: Performed By: #### C DP, CP, LIP, TROPI, LIPRF, GLYHGB #### [address] [address] [address] [employer] Cutting [employer] Operator: Brandon Anaya MD (cont.) Normal [facility] Comment on above: Result Comment: Aver age GFR for 70 or more years old: 75 mL/min/1.73sq m Chronic Kidney Disease: <60 mL/min/1.73sq m Kidney failure: <15 mL/min/1.73sq m eGFR calculated using average adult body mass. Additional eGFR calculator available at: http://www.SnapTell.Civic Artworks/multiple_crcl_2011.htm Performed By: #### C DP, CP, LIP, TROPI, LIPRF, GLYHGB #### [address] [address] [employer] Operator: Brandon Anaya MD Anion gap [Moles/Vol] 12 mmol/L Normal 9-17 [facility] Comment on above: Performed By: #### C DP, CP, LIP, TROPI, LIPRF, GLYHGB #### [address] [address] [employer] Operator: Brandon Anaya MD Calcium [Mass/Vol] 8.6 mg/dL Normal 8.6-10.4 [facility] Comment on above: Performed By: #### C DP, CP, LIP, TROPI, LIPRF, GLYHGB #### [address] [address] [employer] Operator: Brandon Anaya MD Chloride [Moles/Vol] 94 mmol/L Low 98-107 [facility] Comment on above: Performed By: #### C DP, CP, LIP, TROPI, LIPRF, GLYHGB #### [address] [address] [employer] Operator: Brandon Anaya MD CO2 [Moles/Vol] 26 mmol/L Normal 20-31 [facility] Comment on above: Performed By: #### C DP, CP, LIP, TROPI, LIPRF, GLYHGB #### [address] [address] [employer] Operator: Brandon Anaya MD Creatinine [Mass/Vol] 0.46 mg/dL Low 0.50-0.90 [facility] Comment on above: Performed By: #### C DP, CP, LIP, TROPI, LIPRF, GLYHGB #### [address] [address] [employer] Operator: Brandon Anaya MD GFR, Amer >60 Normal >60 [facility] Comment on above: Performed By: #### C DP, CP, LIP, TROPI, LIPRF, GLYHGB #### [address] [address] [employer] Operator: Brandon Anaya MD GFR,non Amer >60 Normal >60 [facility] Comment on above: Performed By: #### C DP, CP, LIP, TROPI, LIPRF, GLYHGB #### [facility] Reissued [address] [place] [address] [place] [address] [employer] Operator: Brandon Anaya MD Glucose [Mass/Vol] 136 mg/dL High 70-99 [facility] Comment on above: Performed By: #### C DP, CP, LIP, TROPI, LIPRF, GLYHGB #### [address] [address] [employer] Operator: Brandon Anaya MD Sodium [Moles/Vol] 132 mmol/L Low 135-144 [facility] Comment on above: Performed By: #### C DP, CP, LIP, TROPI, LIPRF, GLYHGB #### [address] [address] [employer] Operator: Brandon Anaya MD Urea nitrogen [Mass/Vol] 16 mg/dL Normal 8- [facility] Comment on above: Performed By: #### C DP, CP, LIP, TROPI, LIPRF, GLYHGB #### [address] [address] [employer] Operator: Brandon Anaya MD BUN/CRE Ratio NOT REPORTED Normal 11-13 [facility] Comment on above: Performed By: #### C DP, CP, LIP, TROPI, LIPRF, GLYHGB #### [facility] Reissued [address] [place] [address] [employer] Operator: Brandon Anaya MD Staging: NOT REPORTED Normal [facility] Comment on above: Performed By: #### C DP, CP, LIP, TROPI, LIPRF, GLYHGB #### [facility] Reissued [address] [place] [address] [employer] Operator: Brandon Anaya MD Basic Metabolic Panel w/ Ref kervin to MGon 10-12-2019 Anion gap [Moles/Vol] 12 mmol/L 9 - 17 mmol/L [place] Bun/Cre Ratio NOT REPORTED [place] Calcium [Mass/Vol] 8.6 mg/dL 8.6 - 10. 4 mg/dL [place] Chloride [Moles/Vol] 94 mmol/L Low 98 - 10 7 mmol/L [place] CO2 [Moles/Vol] 26 mmol/L 20 - 31 mmol/L [place] Creatinine [Mass/Vol] 0.46 mg/dL Low 0.5 - 0.9 mg/dL [place] GFR >60 >60 mL/min [place] GFR Non- >60 >60 mL/min [place] GFR/1.73 sq M predicted among non-blacks MDRD (S/P/Bld) [Vol rate/Area] [place] Comment on above: Average GFR for 70 o r more years old: 75 mL/min/1.73sq m Chronic Kidney Disease: <60 mL/min/1.73sq m Kidney failure: <15 mL/min/1.73sq m eGFR calculated using average adult body mass. Additional eGFR calculator available at: http://www.Vastech/multiple_crcl_2012.htm GFR/1.73 sq M predicted among non-blacks MDRD (S/P/Bld) [Vol rate/Area] NOT REPORTED [place] Glucose [Mass/Vol] 136 mg/dL High 70 - 99 mg/dL [place] Interpretation and review of laboratory results Abnormal [place] Potassium [Moles/Vol] 3.3 mmol/L Low 3.7 - 5.3 mmol/L [place] Sodium [Moles/Vol] 132 mmol/L Low 135 - 144 mmol/L [place] Urea nitrogen [Mass/Vol] 16 mg/dL 8 - 23 mg/dL [place] CBC auto differentialon 09-24 Basophils (Bld) [#/Vol] 0.04 10*3/uL [place] Basophils/100 WBC (Bld) 0 % 0 - 2 % [place] Differential Type NOT REPORTED [place] Eosinophils (Bld) [#/Vol] 10*3/uL [place] Eosinophils/100 WBC (Bld) 0 % Low 1 - 4 % [place] Erythrocyte distribution width (RBC) [Ratio] 14.7 % High 11.8 - 14.4 % [place] Hematocrit (Bld) [Volume fraction] 40.5 % 36.3 - 47.1 % [place] Hemoglobin (Bld) [Mass/Vol] 12.7 g/dL 11.9 - 15.1 g/dL [place] Immature granulocytes (Bld) [#/Vol] 0.11 10*3/uL [place] Immature granulocytes (Bld) [#/Vol] 1 % High 0 [place] Interpretation and review of laboratory results Abnormal [place] Lymphocytes (Bld) [#/Vol] 1.50 10*3/uL [place] Lymphocytes/100 WBC (Bld) 12 % Low 24 - 43 % [place] MCH (RBC) [Entitic mass] 29.4 pg 25.2 - 33.5 pg [place] MCHC (RBC) [Mass/Vol] 31.4 g/dL 28.4 - 34.8 g/dL [place] MCV (RBC) [Entitic vol] 93.8 fL 82.6 - 102.9 fL [place] Monocytes (Bld) [#/Vol] 0.87 10*3/uL [place] Monocytes/100 WBC (Bld) 7 % 3 - 12 % [place] Platelet mean volume (Bld) [Entitic vol] 10.7 fL 8.1 - 13.5 fL [place] Platelets (Bld) [#/Vol] 196 10*3/uL [place] Platelets (Bld) [#/Vol] NOT REPORTED [place] RBC (Bld) [#/Vol] 4.32 10*6/uL 3.95 - 5.1 1 m/uL [place] RBC morphology finding Nom (Bld) ANISOCYTOSIS PRESENT [place] Segmented neutrophils/100 WBC (Bld) 79 % High 36 - 65 % [place] Segs Absolute 9.64 High [place] WBC (Bld) [#/Vol] 12.2 10*3/uL [place] WBC (Bld) [#/Vol] 0.0 10*3/uL 0.0 per 10 0 WBC [place] WBC Morphology NOT REPORTED [place] CBC with Diffon 10-12-2019 Abs. Basophil 0.04 k/uL Normal 0.00-0.20 [facility] Comment on above: Performed By: #### C DP, CP, LIP, TROPI, LIPRF, GLYHGB #### [place] [address] [employer]ting [employer] Operator: Brandon Anaya MD Abs.Imm.Granulocyte 0.11 k/uL Normal 0.00-0.30 [facility] Comment on above: Performed By: #### C DP, CP, LIP, TROPI, LIPRF, GLYHGB #### [facility] Reissued [address] [place] [address] [employer] Operator: Brandon Anaya MD Abs.Neutrophil (Seg) 9.64 k/uL High 1.50-8.10 [facility] Comment on above: Performed By: #### C DP, CP, LIP, TROPI, LIPRF, GLYHGB #### [facility] Reissued [address] [place] [address] [employer] Operator: Brandon Anaya MD Basophils/100 WBC (Bld) 0 % Normal 0-2 [facility] Comment on above: Performed By: #### C DP, CP, LIP, TROPI, LIPRF, GLYHGB #### [address] [address] [employer] Operator: Brandon Anaya MD Eosinophils (Bld) [#/Vol] 10*3/uL Normal 0.00-0.44 [facility] Comment on above: Performed By: #### C DP, CP, LIP, TROPI, LIPRF, GLYHGB #### [facility] Reissued [address] [place] [address] [employer] Operator: Brandon Anaya MD Eosinophils/100 WBC (Bld) 0 % Low 1-4 [facility] Comment on above: Performed By: #### C DP, CP, LIP, TROPI, LIPRF, GLYHGB #### [address] [address] [employer] Operator: Brandon Anaya MD Erythrocyte distribution width (RBC) [Ratio] 14.7 % High 11.8-14.4 [facility] Comment on above: Performed By: #### C DP, CP, LIP, TROPI, LIPRF, GLYHGB #### [facility] Reissued [address] [place] [address] [employer] Operator: Brandon Anaya MD Hematocrit (Bld) [Volume fraction] 40.5 % Normal 36.3-47.1 [facility] Comment on above: Performed By: #### C DP, CP, LIP, TROPI, LIPRF, GLYHGB #### [address] [address] [employer] Operator: Brandon Anaya MD Hemoglobin (Bld) [Mass/Vol] 12.7 g/dL Normal 11.9-15.1 [facility] Comment on above: Performed By: #### C DP, CP, LIP, TROPI, LIPRF, GLYHGB #### [facility] Reissued [address] [place] [address] [employer] Operator: Brandon Anaya MD Immature granulocytes (Bld) [#/Vol] 1 % High 0 [facility] Comment on above: Performed By: #### C DP, CP, LIP, TROPI, LIPRF, GLYHGB #### [facility] Reissued [address] [place] [address] [employer] Operator: Brandon Anaya MD Lymphocytes (Bld) [#/Vol] 1.50 10*3/uL Normal 1.10-3.70 [facility] Comment on above: Performed By: #### C DP, CP, LIP, TROPI, LIPRF, GLYHGB #### [address] [address] [employer] Operator: Brandon Anaya MD Lymphocytes/100 WBC (Bld) 12 % Low 24-43 [facility] Comment on above: Performed By: #### C DP, CP, LIP, TROPI, LIPRF, GLYHGB #### [address] [address] [employer] Operator: Brandon Anaya MD MCH (RBC) [Entitic mass] 29.4 pg Normal 25.2-33.5 [facility] Comment on above: Performed By: #### C DP, CP, LIP, TROPI, LIPRF, GLYHGB #### [address] [address] [employer] Operator: Brandon Anaya MD MCHC (RBC) [Mass/Vol] 31.4 g/dL Normal 28.4-34.8 [facility] Comment on above: Performed By: #### C DP, CP, LIP, TROPI, LIPRF, GLYHGB #### [address] [address] [employer] Operator: Brandon Anaya MD MCV (RBC) [Entitic vol] 93.8 fL Normal 82.6-102.9 [facility] Comment on above: Performed By: #### C DP, CP, LIP, TROPI, LIPRF, GLYHGB #### [address] [address] [employer] Operator: Brandon Anaya MD Monocytes (Bld) [#/Vol] 0.87 10*3/uL Normal 0.10-1.20 [facility] Comment on above: Performed By: #### C DP, CP, LIP, TROPI, LIPRF, GLYHGB #### [address] [address] [employer] Operator: Brandon Anaya MD Monocytes/100 WBC (Bld) 7 % Normal 3-12 [facility] Comment on above: Performed By: #### C DP, CP, LIP, TROPI, LIPRF, GLYHGB #### [address] [address] [employer] Operator: Brandon Anaya MD Neutrophil (Seg) 79 % High 36-65 [facility] Comment on above: Performed By: #### C DP, CP, LIP, TROPI, LIPRF, GLYHGB #### [address] [address] [employer] Operator: Brandon Anaya MD NRBC Automated 0.0 per [address] [facility] Comment on above: Performed By: #### C DP, CP, LIP, TROPI, LIPRF, GLYHGB #### [address] [address] [employer] Operator: Brandon Anaya MD Platelet mean volume (Bld) [Entitic vol] 10.7 fL Normal 8.1-13.5 [facility] Comment on above: Performed By: #### C DP, CP, LIP, TROPI, LIPRF, GLYHGB #### [address] [address] [employer] Operator: Brandon Anaya MD Platelets (Bld) [#/Vol] 196 10*3/uL Normal 138-453 [facility] Comment on above: Performed By: #### C DP, CP, LIP, TROPI, LIPRF, GLYHGB #### [address] [address] [employer] Operator: Brandon Anaya MD RBC (Bld) [#/Vol] 4.32 10*6/uL Normal 3.95-5.11 [facility] Comment on above: Performed By: #### C DP, CP, LIP, TROPI, LIPRF, GLYHGB #### [address] [address] [employer] Operator: Brandon Anaya MD RBC morphology finding Nom (Bld) ANISOCYTOSIS PRESENT Normal [facility] Comment on above: Performed By: #### C DP, CP, LIP, TROPI, LIPRF, GLYHGB #### [address] [address] [employer] Operator: Brandon Anaya MD WBC (Bld) [#/Vol] 12.2 10*3/uL High 3.5-11.3 [facility] Comment on above: Performed By: #### C DP, CP, LIP, TROPI, LIPRF, GLYHGB #### [address] [address] [employer] Operator: Brandon Anaya MD Auto Diff Performed NOT REPORTED Normal [facility] Comment on above: Performed By: #### C DP, CP, LIP, TROPI, LIPRF, GLYHGB #### [address] [address] [employer] Operator: Brandon Anaya MD Platelets (Bld) [#/Vol] NOT REPORTED Normal [facility] Comment on above: Performed By: #### C DP, CP, LIP, TROPI, LIPRF, GLYHGB #### [address] [address] [employer] Operator: Brandon Anaya MD WBC Morphology NOT REPORTED Normal [facility] Comment on above: Performed By: #### C DP, CP, LIP, TROPI, LIPRF, GLYHGB #### [facility] Reissued [address] [place] [address] [employer] Operator: Brandon Anaya MD Magnesiumon 10-12-2019 Magnesium [Mass/Vol] 2.2 mg/dL Normal 1.6-2.6 [facility] Comment on above: Performed By: #### C DP, CP, LIP, TROPI, LIPRF, GLYHGB #### [facility] [address] [place] [address] [employer] Operator: Brandon Anaya MD Magnesium [Mass/Vol] 2.2 mg/dL 1.6 - 2 .6 mg/dL [place] POC Glucose Fingerstickon Glucose [Mass/Vol] 117 mg/dL High 65 - 105 mg/dL [place] Interpretation and review of laboratory results Abnormal [place] Glucose [Mass/Vol] 115 mg/dL High 65 - 105 mg/dL [place] Interpretation and review of laboratory results Abnormal [place] Glucose [Mass/Vol] 123 mg/dL High 65 - 105 mg/dL [place] Interpretation and review of laboratory results Abnormal [place] Glucose [Mass/Vol] 117 mg/dL High 65 - 105 mg/dL [place] Interpretation and review of laboratory results Abnormal [place] URINALYSIS WITH MICROSCOPICo n 10-12-2019 Amorphous, UA NOT REPORTED None [place] Bacteria, UA NOT REPORTED None [place] Bilirubin Urine Negative NEGATIVE [place] Casts UA 0 TO 2 HYALINE Refer ence range defined for non-centrifuged specimen. [place] Color, UA YELLOW YELLOW [place] Crystals, UA NOT REPORTED None /HPF [place] Epithelial Cells UA 2 TO 5 [place] Glucose, Ur Negative NEGATIVE [place] Interpretation and review of laboratory results Abnormal [place] Ketones Ql (U) SMALL Abnormal NEGATIVE [place] Leukocyte esterase Test strip Ql (U) Negative NEGATIVE [place] Mucus, UA NOT REPORTED None [place] Nitrite, Urine Negative NEGATIVE [place] Other Observations UA NOT REPORTED NOT REQ. M [place] pH, UA 8.5 High [place] Protein (U) [Mass/Vol] Negative NEGATIVE [place] RBC (U) [#/Vol] TOO NUMEROUS TO COUNT [place] Comment on above: Reference range defi nya for non-centrifuged specimen. Renal Epithelial, UA NOT REPORTED 0 /HPF [place] Specific [place], UA 1.011 [place], [place] Trichomonas, UA NOT REPORTED None [place] Turbidity UA TURBID Abnormal CLEAR [place] Urine Hgb Negative NEGATIVE [place] Urobilinogen, Urine Normal Normal [place] WBC, UA 0 TO 2 [place] Yeast, UA NOT REPORTED None [place] - [place] Urinalysis w/ Microon 2019 ----- Normal [facility] Comment on above: Performed By: #### C DP, CP, LIP, TROPI, LIPRF, GLYHGB #### [facility] [address] [place] [address] [employer] Operator: Brandon Anaya MD Acetoacetic Acid,Ur SMALL Abnormal NEG [facility] Comment on above: Performed By: #### C DP, CP, LIP, TROPI, LIPRF, GLYHGB #### [facility] Reissued [address] [place] [address] [employer] Operator: Brandon Anaya MD Bilirubin, SemiQt,Ur Negative Normal NEG [facility] Comment on above: Performed By: #### C DP, CP, LIP, TROPI, LIPRF, GLYHGB #### [facility] Reissued [address] [place] [address] [employer] Operator: Brandon Anaya MD Casts LM.LPF (Urine sed) [#/Area] 0 TO 2 HYALINE Normal 0-8 [facility] Comment on above: Result Comment: Refe rence range defined for non-centrifuged specimen. Performed By: #### C DP, CP, LIP, TROPI, LIPRF, GLYHGB #### [address] [address] [employer] Operator: Brandon Anaya MD Color (U) YELLOW Normal YEL [facility] Comment on above: Performed By: #### C DP, CP, LIP, TROPI, LIPRF, GLYHGB #### [address] [address] [employer] Operator: Brandon Anaya MD Epithelial cells LM.HPF (Urine sed) [#/Area] 2 TO 5 Normal 0-5 [facility] Comment on above: Performed By: #### C DP, CP, LIP, TROPI, LIPRF, GLYHGB #### [address] [address] [employer] Operator: Brandon Anaya MD Glucose Ql (U) Negative Normal NEG [facility] Comment on above: Performed By: #### C DP, CP, LIP, TROPI, LIPRF, GLYHGB #### [address] [address] [employer] Operator: Brandon Anaya MD Hemoglobin, Ur Negative Normal NEG [facility] Comment on above: Performed By: #### C DP, CP, LIP, TROPI, LIPRF, GLYHGB #### [address] [address] [employer] Operator: Brandon Anaya MD Leukocyte esterase Test strip Ql (U) Negative Normal NEG [facility] Comment on above: Performed By: #### C DP, CP, LIP, TROPI, LIPRF, GLYHGB #### [facility] Reissued [address] [place] [address] [employer] Operator: Brandon Anaya MD Nitrite,Ur Negative Normal NEG [facility] Comment on above: Performed By: #### C DP, CP, LIP, TROPI, LIPRF, GLYHGB #### [facility] Reissued [address] [place] [address] [employer] Operator: Brandon Anaya MD pH (U) 8.5 [pH] High 5.0-8.0 [facility] Comment on above: Performed By: #### C DP, CP, LIP, TROPI, LIPRF, GLYHGB #### [address] [address] [employer] Operator: Brandon Anaya MD Protein Ql (U) Negative Normal NEG [facility] Comment on above: Performed By: #### C DP, CP, LIP, TROPI, LIPRF, GLYHGB #### [address] [address] [employer] Operator: Brandon Anaya MD RBC (U) [#/Vol] TOO NUMEROUS TO COUNT Normal 0-4 [facility] Comment on above: Result Comment: Refe rence range defined for non-centrifuged specimen. Performed By: #### C DP, CP, LIP, TROPI, LIPRF, GLYHGB #### [address] [address] [employer] Operator: Brandon Anaya MD Specific gravity (U) [Rel density] 1.011 Normal 1.005-1.030 [facility] Comment on above: Performed By: #### C DP, CP, LIP, TROPI, LIPRF, GLYHGB #### [facility] Reissued [address] [place] [address] [employer] Operator: Brandon Anaya MD Turbidity TURBID Abnormal CLEAR [facility] Comment on above: Performed By: #### C DP, CP, LIP, TROPI, LIPRF, GLYHGB #### [facility] Reissued [address] [place] [address] [employer] Operator: Brandon Anaya MD Urobilinogen,Ur Normal Normal NORM [facility] Comment on above: Performed By: #### C DP, CP, LIP, TROPI, LIPRF, GLYHGB #### [facility] Reissued [address] [place] [address] [employer] Operator: Brandon Anaya MD WBC (U) [#/Vol] 0 TO 2 Normal 0-5 [facility] Comment on above: Performed By: #### C DP, CP, LIP, TROPI, LIPRF, GLYHGB #### [facility] Reissued [address] [place] [address] [employer] Operator: Brandon Anaya MD Amorphous sediment LM Ql (Urine sed) NOT REPORTED Normal [facility] Comment on above: Performed By: #### C DP, CP, LIP, TROPI, LIPRF, GLYHGB #### [address] [address] [employer] Operator: Brandon Anaya MD Bacteria LM.HPF (Urine sed) [#/Area] NOT REPORTED Normal NONE [facility] Comment on above: Performed By: #### C DP, CP, LIP, TROPI, LIPRF, GLYHGB #### [facility] Reissued [address] [place] [phone] [employer] Operator: Brandon Anaya MD Crystals LM Nom (Urine sed) NOT REPORTED Normal [facility] Comment on above: Performed By: #### C DP, CP, LIP, TROPI, LIPRF, GLYHGB #### [facility] Reissued [address] [place] [address] [employer] Operator: Brandon Anaya MD Epithelial, Renal NOT REPORTED Normal [address] [facility] Comment on above: Performed By: #### C DP, CP, LIP, TROPI, LIPRF, GLYHGB #### [facility] Reissued [address] [place] [address] [employer] Operator: Brandon Anaya MD Mucus Strands NOT REPORTED Normal NONE [facility] Comment on above: Performed By: #### C DP, CP, LIP, TROPI, LIPRF, GLYHGB #### [facility] [address] [place] [address] [employer] Operator: Brandon Anaya MD Other Observations NOT REPORTED Normal [facility] Comment on above: Performed By: #### C DP, CP, LIP, TROPI, LIPRF, GLYHGB #### [facility] [place] [address] [employer] Operator: Brandon Anaya MD Trichomonas NOT REPORTED Normal NONE [facility] Comment on above: Performed By: #### C DP, CP, LIP, TROPI, LIPRF, GLYHGB #### [facility] [address] [place] [address] [employer] Operator: Brandon Anaya MD Yeast LM Ql (Urine sed) NOT REPORTED Normal [facility] Comment on above: Performed By: #### C DP, CP, LIP, TROPI, LIPRF, GLYHGB #### [facility] Reissued [facility] [place] [address] [employer]ting Machine Operator: Brandon Anaya MD RENAL ARTERIAL DUPLEX COM PLETEon 10-12-2019 [facility] Vascular Renal Procedure Patient Name ALEYDA Date of Study 10/12/2019 ZACHARY Date of 1945 Gender Female Age 74 year(s) Race Room Number 2015 Corporate ID [id number] # Patient Acct [id number] # MR # [id number] Machine Cloth Measurer Celena Juarez, JACEK, RDMS Interpreting Jamison Galo Physician Referring Referring Physician DENYS MORRIS MD Nurse Practitioner Procedure Type of Study: Abdominal: Renal, Renal Artery Scan Bilateral. Patient Status:In Patient. Conclusions Summary Abdominal aortic aneurysm measuring 3.5 cm was noted. 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 Signature Electronically signed by Corrine GaloInterpret[facility]bold [facility]) on 10/12/2019 07:54 PM Findings: Right [...] The average kidney length is 10.75 cm. [facility] [place], [place] Prieto, Mhpn Incoming Cardio Results From [facility]/Factery - 10/12/2019 7:54 PM EDT [facility] Vascular Renal Procedure Patient Name ALEYDA Date of Study 10/12/2019 ZACHARY Date of 1945 Gender Female Age 74 year(s) Race Room Number 2015 Corporate ID [id number] # Patient Acct [id number] # MR # [id number] Machine Cloth Measurer Celena Juarez RVT, RDMS Interpreting Jamison Galo [...] The average kidney length is 10.75 cm. [facility] [place] XR CHEST PORTABLEon [...] Argentina Guzmán MD 10/11/[address] [facility] Basic Metab w/rfx MGon 10-10 (cont.) Normal [facility] Comment on above: Result Comment: Aver age GFR for 70 or more years old: 75 mL/min/1.73sq m Chronic Kidney Disease: <60 mL/min/1.73sq m Kidney failure: <15 mL/min/1.73sq m eGFR calculated using average adult body mass. Additional eGFR calculator available at: http://www.Vastech/multiple_crcl_2012.htm Performed By: #### C DP, CP, LIP, TROPI, LIPRF, GLYHGB #### [employer] [address] [place] [address] R[employer] Cutting Machine Operator: Brandon Anaya MD Anion gap [Moles/Vol] 15 mmol/L Normal - [facility] Comment on above: Performed By: #### C DP, CP, LIP, TROPI, LIPRF, GLYHGB #### [facility] Reissued [address] [place] [address] R[employer]ting Machine Operator: Brandon Anaya MD Calcium [Mass/Vol] 9.2 mg/dL Normal 8.6-10.4 [facility] Comment on above: Performed By: #### C DP, CP, LIP, TROPI, LIPRF, GLYHGB #### [address] [address] [employer] Cutting Machine Operator: Brandon Anaya MD Chloride [Moles/Vol] 96 mmol/L Low 98-107 [facility] Comment on above: Performed By: #### C DP, CP, LIP, TROPI, LIPRF, GLYHGB #### [address] [address] R[employer] Cutting Machine Operator: Brandon Anaya MD CO2 [Moles/Vol] 24 mmol/L Normal 20-31 [facility] Comment on above: Performed By: #### C DP, CP, LIP, TROPI, LIPRF, GLYHGB #### [address] [address] [place]after Cutting Machine Operator: Brandon Anaya MD Creatinine [Mass/Vol] 0.55 mg/dL Normal 0.50-0.90 [facility] Comment on above: Performed By: #### C DP, CP, LIP, TROPI, LIPRF, GLYHGB #### [address] [address] [place] Cutting Machine Operator: Brandon Anaya MD GFR, Amer >60 Normal >60 [facility] Comment on above: Performed By: #### C DP, CP, LIP, TROPI, LIPRF, GLYHGB #### [address] [address] [place] Cutting Machine Operator: Brandon Anaya MD GFR,non Amer >60 Normal >60 [facility] Comment on above: Performed By: #### C DP, CP, LIP, TROPI, LIPRF, GLYHGB #### [address] [address] [place] Cutting Machine Operator: Brandon Anaya MD Glucose [Mass/Vol] 146 mg/dL High 70-99 [facility] Comment on above: Performed By: #### C DP, CP, LIP, TROPI, LIPRF, GLYHGB #### [address] [address] [place] Cutting Machine Operator: Brandon Anaya MD Potassium [Moles/Vol] 3.6 mmol/L Low 3.7-5.3 [facility] Comment on above: Performed By: #### C DP, CP, LIP, TROPI, LIPRF, GLYHGB #### [address] [address] [place] Cutting Machine Operator: Brandon Anaya MD Sodium [Moles/Vol] 135 mmol/L Normal 135-144 [facility] Comment on above: Performed By: #### C DP, CP, LIP, TROPI, LIPRF, GLYHGB #### [address] [address] [place] Cutting Machine Operator: Brandon Anaya MD Urea nitrogen [Mass/Vol] 13 mg/dL Normal 8-23 [facility] Comment on above: Performed By: #### C DP, CP, LIP, TROPI, LIPRF, GLYHGB #### [address] [address] [place] Cutting Machine Operator: Brandon Aanya MD BUN/CRE Ratio NOT REPORTED Normal - [facility] Comment on above: Performed By: #### C DP, CP, LIP, TROPI, LIPRF, GLYHGB #### [address] [address] [place] Cutting Machine Operator: Brandon Anaya MD Staging: NOT REPORTED Normal [facility] Comment on above: Performed By: #### C DP, CP, LIP, TROPI, LIPRF, GLYHGB #### [address] [address] [place] Cutting Machine Operator: Brandon Anaya MD Basic Metabolic Panel w/ Ref kervin to MGon 10-11-2019 Anion gap [Moles/Vol] 15 mmol/L 9 - 17 mmol/L [place] Bun/Cre Ratio NOT REPORTED [place] Calcium [Mass/Vol] 9.2 mg/dL 8.6 - 10. 4 mg/dL [place] Chloride [Moles/Vol] 96 mmol/L Low 98 - 10 7 mmol/L [place] CO2 [Moles/Vol] 24 mmol/L 20 - 31 mmol/L [place] Creatinine [Mass/Vol] 0.55 mg/dL 0.5 - 0.9 mg/dL [place] GFR >60 >60 mL/min [place] GFR Non- >60 >60 mL/min [place] GFR/1.73 sq M predicted among non-blacks MDRD (S/P/Bld) [Vol rate/Area] NOT REPORTED [place] GFR/1.73 sq M predicted among non-blacks MDRD (S/P/Bld) [Vol rate/Area] [place] Comment on above: Average GFR for 70 o r more years old: 75 mL/min/1.73sq m Chronic Kidney Disease: <60 mL/min/1.73sq m Kidney failure: <15 mL/min/1.73sq m eGFR calculated using average adult body mass. Additional eGFR calculator available at: http://www.Vastech/multiple_crcl_2012.htm Glucose [Mass/Vol] 146 mg/dL High 70 - 99 mg/dL [place] Interpretation and review of laboratory results Abnormal [place] Potassium [Moles/Vol] 3.6 mmol/L Low 3.7 - 5.3 mmol/L [place] Sodium [Moles/Vol] 135 mmol/L 135 - 144 mmol/L [place] Urea nitrogen [Mass/Vol] 13 mg/dL 8 - 23 mg/dL [place] CBC auto differentialon 09-24 Basophils (Bld) [#/Vol] 0.03 10*3/uL [place] Basophils/100 WBC (Bld) 0 % 0 - 2 % [place] Differential Type NOT REPORTED [place] Eosinophils (Bld) [#/Vol] 10*3/uL [place] Eosinophils/100 WBC (Bld) 0 % Low 1 - 4 % [place] Erythrocyte distribution width (RBC) [Ratio] 14.3 % 11.8 - 14.4 % [place] Hematocrit (Bld) [Volume fraction] 43.6 % 36.3 - 47.1 % [place] Hemoglobin (Bld) [Mass/Vol] 13.7 g/dL 11.9 - 15.1 g/dL [place] Immature granulocytes (Bld) [#/Vol] 1 % High 0 [place] Immature granulocytes (Bld) [#/Vol] 0.07 10*3/uL [place] Interpretation and review of laboratory results Abnormal [place] Lymphocytes (Bld) [#/Vol] 0.92 10*3/uL Low [place] Lymphocytes/100 WBC (Bld) 14 % Low 24 - 43 % [place] MCH (RBC) [Entitic mass] 29.1 pg 25.2 - 33.5 pg [place] MCHC (RBC) [Mass/Vol] 31.4 g/dL 28.4 - 34.8 g/dL [place] MCV (RBC) [Entitic vol] 92.6 fL 82.6 - 102.9 fL [place] Monocytes (Bld) [#/Vol] 0.07 10*3/uL Low [place] Monocytes/100 WBC (Bld) 1 % Low 3 - 12 % [place] Platelet mean volume (Bld) [Entitic vol] 10.6 fL 8.1 - 13.5 fL [place] Platelets (Bld) [#/Vol] NOT REPORTED [place] Platelets (Bld) [#/Vol] 196 10*3/uL [place] RBC (Bld) [#/Vol] 4.71 10*6/uL 3.95 - 5.1 1 m/uL [place] RBC morphology finding Nom (Bld) NOT REPORTED [place] Segmented neutrophils/100 WBC (Bld) 84 % High 36 - 65 % [place] Segs Absolute 5.67 [place] WBC (Bld) [#/Vol] 0.0 10*3/uL 0.0 per 10 0 WBC [place] WBC (Bld) [#/Vol] 6.8 10*3/uL [place] WBC Morphology NOT REPORTED [place] CBC with Diffon 10-11-2019 Abs. Basophil 0.03 k/uL Normal 0.00-0.20 [facility] Comment on above: Performed By: #### C DP, CP, LIP, TROPI, LIPRF, GLYHGB #### [facility] Reissued [address] [place] [phone] Rafter Cutting Machine Operator: Brandon Anaya MD Abs.Imm.Granulocyte 0.07 k/uL Normal 0.00-0.30 [facility] Comment on above: Performed By: #### C DP, CP, LIP, TROPI, LIPRF, GLYHGB #### [facility] Reissued [address] [place] [phone] Rafter Cutting Machine Operator: Brandon Anaya MD Abs.Neutrophil (Seg) 5.67 k/uL Normal 1.50-8.10 [facility] Comment on above: Performed By: #### C DP, CP, LIP, TROPI, LIPRF, GLYHGB #### [facility] Reissued [address] [place] [address] Rafter Cutting Machine Operator: Brandon Anaya MD Basophils/100 WBC (Bld) 0 % Normal 0-2 [facility] Comment on above: Performed By: #### C DP, CP, LIP, TROPI, LIPRF, GLYHGB #### [facility] Reissued [address] [place] [phone] Rafter Cutting Machine Operator: Brandon Anaya MD Eosinophils (Bld) [#/Vol] 10*3/uL Normal 0.00-0.44 [facility] Comment on above: Performed By: #### C DP, CP, LIP, TROPI, LIPRF, GLYHGB #### [facility] Reissued [address] [place] [address] Rafter Cutting Machine Operator: Brandon Anaya MD Eosinophils/100 WBC (Bld) 0 % Low 1-4 [facility] Comment on above: Performed By: #### C DP, CP, LIP, TROPI, LIPRF, GLYHGB #### [place] [address] Rafter Cutting Machine Operator: Brandon Anaya MD Erythrocyte distribution width (RBC) [Ratio] 14.3 % Normal 11.8-14.4 [facility] Comment on above: Performed By: #### C DP, CP, LIP, TROPI, LIPRF, GLYHGB #### [place] [address] Rafter Cutting Machine Operator: Brandon Anaya MD Hematocrit (Bld) [Volume fraction] 43.6 % Normal 36.3-47.1 [facility] Comment on above: Performed By: #### C DP, CP, LIP, TROPI, LIPRF, GLYHGB #### [address] [address] [place] Cutting Machine Operator: Brandon Anaya MD Hemoglobin (Bld) [Mass/Vol] 13.7 g/dL Normal 11.9-15.1 [facility] Comment on above: Performed By: #### C DP, CP, LIP, TROPI, LIPRF, GLYHGB #### [facility] Reissued [address] [place] [phone] Rafter Cutting Machine Operator: Brandon Anaya MD Immature granulocytes (Bld) [#/Vol] 1 % High 0 [facility] Comment on above: Performed By: #### C DP, CP, LIP, TROPI, LIPRF, GLYHGB #### [address] [address] [place] Cutting Machine Operator: Brandon Anaya MD Lymphocytes (Bld) [#/Vol] 0.92 10*3/uL Low 1.10-3.70 [facility] Comment on above: Performed By: #### C DP, CP, LIP, TROPI, LIPRF, GLYHGB #### [address] [address] [place] Cutting Machine Operator: Brandon Anaya MD Lymphocytes/100 WBC (Bld) 14 % Low 24-43 [facility] Comment on above: Performed By: #### C DP, CP, LIP, TROPI, LIPRF, GLYHGB #### [address] [address] [place] Cutting Machine Operator: Brandon Anaya MD MCH (RBC) [Entitic mass] 29.1 pg Normal 25.2-33.5 [facility] Comment on above: Performed By: #### C DP, CP, LIP, TROPI, LIPRF, GLYHGB #### [place] [address] Rafter Cutting Machine Operator: Brandon Anaya MD MCHC (RBC) [Mass/Vol] 31.4 g/dL Normal 28.4-34.8 [facility] Comment on above: Performed By: #### C DP, CP, LIP, TROPI, LIPRF, GLYHGB #### [address] [address] [place] Cutting Machine Operator: Brandon Anaya MD MCV (RBC) [Entitic vol] 92.6 fL Normal 82.6-102.9 [facility] Comment on above: Performed By: #### C DP, CP, LIP, TROPI, LIPRF, GLYHGB #### [address] [address] [place] Cutting Machine Operator: Brandon Anaya MD Monocytes (Bld) [#/Vol] 0.07 10*3/uL Low 0.10-1.20 [facility] Comment on above: Performed By: #### C DP, CP, LIP, TROPI, LIPRF, GLYHGB #### [address] [address] [place] Cutting Machine Operator: Brandon Anaya MD Monocytes/100 WBC (Bld) 1 % Low 3-12 [facility] Comment on above: Performed By: #### C DP, CP, LIP, TROPI, LIPRF, GLYHGB #### [place] [address] Rafter Cutting Machine Operator: Brandon Anaya MD Neutrophil (Seg) 84 % High 36-65 [facility] Comment on above: Performed By: #### C DP, CP, LIP, TROPI, LIPRF, GLYHGB #### [place] [address] Rafter Cutting Machine Operator: Brandon Anaya MD NRBC Automated 0.0 per [address] [facility] Comment on above: Performed By: #### C DP, CP, LIP, TROPI, LIPRF, GLYHGB #### [place] [address] Rafter Cutting Machine Operator: Brandon Anaya MD Platelet mean volume (Bld) [Entitic vol] 10.6 fL Normal 8.1-13.5 [facility] Comment on above: Performed By: #### C DP, CP, LIP, TROPI, LIPRF, GLYHGB #### [place] [address] Rafter Cutting Machine Operator: Brandon Anaya MD Platelets (Bld) [#/Vol] 196 10*3/uL Normal 138-453 [facility] Comment on above: Performed By: #### C DP, CP, LIP, TROPI, LIPRF, GLYHGB #### [address] [address] [place] Cutting Machine Operator: Brandon Anaya MD RBC (Bld) [#/Vol] 4.71 10*6/uL Normal 3.95-5.11 [facility] Comment on above: Performed By: #### C DP, CP, LIP, TROPI, LIPRF, GLYHGB #### [address] [address] [place] Cutting Machine Operator: Brandon Anaya MD WBC (Bld) [#/Vol] 6.8 10*3/uL Normal 3.5-11.3 [facility] Comment on above: Performed By: #### C DP, CP, LIP, TROPI, LIPRF, GLYHGB #### [address] [address] [place] Cutting Machine Operator: Brandon Anaya MD Auto Diff Performed NOT REPORTED Normal [facility] Comment on above: Performed By: #### C DP, CP, LIP, TROPI, LIPRF, GLYHGB #### [address] [address] [place] Cutting Machine Operator: Brandon Anaya MD Platelets (Bld) [#/Vol] NOT REPORTED Normal [facility] Comment on above: Performed By: #### C DP, CP, LIP, TROPI, LIPRF, GLYHGB #### [address] [address] [place] Cutting Machine Operator: Brandon Anaya MD RBC morphology finding Nom (Bld) NOT REPORTED Normal [facility] Comment on above: Performed By: #### C DP, CP, LIP, TROPI, LIPRF, GLYHGB #### [address] [address] [place] Cutting Machine Operator: Brandon Anaya MD WBC Morphology NOT REPORTED Normal [facility] Comment on above: Performed By: #### C DP, CP, LIP, TROPI, LIPRF, GLYHGB #### [facility] [address] [id number] [place] Cutting Machine Operator: Brandon Anaya MD MRI BRAIN W WO [...] Chaitanya Sawyer MD 10/11/[address] [facility] [place], [place]hpn Incoming Radiant Results From [employer] - 10/11/2019 3:07 PM EDT EXAMINATION: MRI [...] Small meningioma over the right frontal lobe. [place] Volume loss with chr onic white matter microvascular ischemic change. Small meningioma over the right frontal lobe. [place] EXAMINATION: MRI OF THE BRAIN WITHOUT [...] The soft tissues demonstrate no acute abnormality. [facility] [employer] [place] POC Glucose Fingerstickon Glucose [Mass/Vol] 121 mg/dL High 65 - 105 mg/dL [place] Interpretation and review of laboratory results Abnormal [place] Glucose [Mass/Vol] 171 mg/dL High 65 - 105 mg/dL [place] Interpretation and review of laboratory results Abnormal [place] Glucose [Mass/Vol] 127 mg/dL High 65 - 105 mg/dL [place] Interpretation and review of laboratory results Abnormal [place] Glucose [Mass/Vol] 145 mg/dL High 65 - 105 mg/dL [place] Interpretation and review of laboratory results Abnormal [place] XR CHEST PORTABLEon 10-11-19 EXAMINATION: ONE XRA Y VIEW OF THE CHEST 10/11/2019 10:45 pm COMPARISON: 06/27/2017 HISTORY: ORDERING SYSTEM PROVIDED HISTORY: evaluate TECHNOLOGIST PROVIDED HISTORY: evaluate Reason for Exam: Upright portable Acuity: Unknown Type of Exam: Unknown FINDINGS: Cardiomediastinal silhouette is unchanged in size. Aortic atherosclerosis. No pulmonary consolidation, pleural effusion, or pneumothorax. No acute osseous abnormality. [place], [place] Incoming Radiant Results From [employer] - 10/11/2019 11:49 PM EDT EXAMINATION: ONE XRAY VIEW OF THE CHEST 10/11/2019 10:45 pm COMPARISON: 06/27/2017 HISTORY: ORDERING SYSTEM PROVIDED HISTORY: evaluate TECHNOLOGIST PROVIDED HISTORY: evaluate Reason for Exam: Upright portable Acuity: Unknown Type of Exam: Unknown FINDINGS: Cardiomediastinal silhouette is unchanged in size. Aortic atherosclerosis. No pulmonary consolidation, pleural effusion, or pneumothorax. No acute osseous abnormality. IMPRESSION: No acute cardiopulmonary abnormality. [place] No acute cardiopulmo nary abnormality. [place] Basic Metab w/rfx MGon 10-09 (cont.) Normal [facility] Comment on above: Result Comment: Aver age GFR for 70 or more years old: 75 mL/min/1.73sq m Chronic Kidney Disease: <60 mL/min/1.73sq m Kidney failure: <15 mL/min/1.73sq m eGFR calculated using average adult body mass. Additional eGFR calculator available at: http://www.[employer]Tell.[employer]/multiple_crcl_2011.htm Performed By: #### C DP, CP, LIP, TROPI, LIPRF, GLYHGB #### [facility] Reissued [facility] [place] [address] Rafter Cutting Machine Operator: Brandon Anaya MD Anion gap [Moles/Vol] 10 mmol/L Normal 9-17 [facility] Comment on above: Performed By: #### C DP, CP, LIP, TROPI, LIPRF, GLYHGB #### [facility] Reissued [address] [place] [phone] Rafter Cutting Machine Operator: Brandon Anaya MD Calcium [Mass/Vol] 9.0 mg/dL Normal 8.6-10.4 [facility] Comment on above: Performed By: #### C DP, CP, LIP, TROPI, LIPRF, GLYHGB #### [facility] Reissued [address] [place] [address] Rafter Cutting Machine Operator: Brandon Anaya MD Chloride [Moles/Vol] 97 mmol/L Low 98-107 [facility] Comment on above: Performed By: #### C DP, CP, LIP, TROPI, LIPRF, GLYHGB #### [facility] Reissued [address] [place] [address] Rafter Cutting Machine Operator: Brandon Anaya MD CO2 [Moles/Vol] 25 mmol/L Normal 20-31 [facility] Comment on above: Performed By: #### C DP, CP, LIP, TROPI, LIPRF, GLYHGB #### [facility] Reissued [address] [place] [phone] Rafter Cutting Machine Operator: Brandon Anaya MD Creatinine [Mass/Vol] 0.50 mg/dL Normal 0.50-0.90 [facility] Comment on above: Performed By: #### C DP, CP, LIP, TROPI, LIPRF, GLYHGB #### [facility] Reissued [address] [place] [phone] Rafter Cutting Machine Operator: Brandon Anaya MD GFR, Amer >60 Normal >60 [facility] Comment on above: Performed By: #### C DP, CP, LIP, TROPI, LIPRF, GLYHGB #### [facility] Reissued [address] [place] [address] Rafter Cutting Machine Operator: Brandon Anaya MD GFR,non Amer >60 Normal >60 [facility] Comment on above: Performed By: #### C DP, CP, LIP, TROPI, LIPRF, GLYHGB #### [facility] Reissued [address] [place] [phone] Rafter Cutting Machine Operator: Brandon Anaya MD Glucose [Mass/Vol] 123 mg/dL High 70-99 [facility] Comment on above: Performed By: #### C DP, CP, LIP, TROPI, LIPRF, GLYHGB #### [address] [address] R[place] Cutting Machine Operator: Brandon Anaya MD Potassium [Moles/Vol] 3.5 mmol/L Low 3.7-5.3 [facility] Comment on above: Performed By: #### C DP, CP, LIP, TROPI, LIPRF, GLYHGB #### [address] [address] [place] Cutting Machine Operator: Brandon Anaya MD Sodium [Moles/Vol] 132 mmol/L Low 135-144 [facility] Comment on above: Performed By: #### C DP, CP, LIP, TROPI, LIPRF, GLYHGB #### [address] [address] [place] Cutting Machine Operator: Brandon Anaya MD Urea nitrogen [Mass/Vol] 14 mg/dL Normal 8-23 [facility] Comment on above: Performed By: #### C DP, CP, LIP, TROPI, LIPRF, GLYHGB #### [address] [address] [place] Cutting Machine Operator: Brandon Anaya MD BUN/CRE Ratio NOT REPORTED Normal 9-20 [facility] Comment on above: Performed By: #### C DP, CP, LIP, TROPI, LIPRF, GLYHGB #### [facility] Reissued [address] [place] [address] Rafter Cutting Machine Operator: Brandon Anaya MD Staging: NOT REPORTED Normal [facility] Comment on above: Performed By: #### C DP, CP, LIP, TROPI, LIPRF, GLYHGB #### [facility] Reissued [address] [place], [place] [id number] Rafter Cutting Machine Operator: Brandon Anaya MD Basic Metabolic Panel w/ Ref kervin to MGon 10-10-2019 Anion gap [Moles/Vol] 10 mmol/L 9 - 17 mmol/L [place] Bun/Cre Ratio NOT REPORTED [place] Calcium [Mass/Vol] 9.0 mg/dL 8.6 - 10. 4 mg/dL [place] Chloride [Moles/Vol] 97 mmol/L Low 98 - 10 7 mmol/L [place] CO2 [Moles/Vol] 25 mmol/L 20 - 31 mmol/L [place] Creatinine [Mass/Vol] 0.5 mg/dL 0.5 - 0.9 mg/dL [place] GFR >60 >60 mL/min [place] GFR Non- >60 >60 mL/min [place] GFR/1.73 sq M predicted among non-blacks MDRD (S/P/Bld) [Vol rate/Area] [place] Comment on above: Average GFR for 70 o r more years old: 75 mL/min/1.73sq m Chronic Kidney Disease: <60 mL/min/1.73sq m Kidney failure: <15 mL/min/1.73sq m eGFR calculated using average adult body mass. Additional eGFR calculator available at: http://www.SnapTell.[employer]/multiple_crcl_2012.htm GFR/1.73 sq M predicted among non-blacks MDRD (S/P/Bld) [Vol rate/Area] NOT REPORTED [place] Glucose [Mass/Vol] 123 mg/dL High 70 - 99 mg/dL [place] Interpretation and review of laboratory results Abnormal [place] Potassium [Moles/Vol] 3.5 mmol/L Low 3.7 - 5.3 mmol/L [place] Sodium [Moles/Vol] 132 mmol/L Low 135 - 144 mmol/L [place] Urea nitrogen [Mass/Vol] 14 mg/dL 8 - 23 mg/dL [place] C-REACTIVE PROTEINon 020 CRP [Mass/Vol] 6.3 mg/L High 0 - 5 mg/L [place] Interpretation and review of laboratory results Abnormal [place] C-Reactive Proteinon 020 CRP [Mass/Vol] 6.3 mg/L High 0.0-5.0 [facility] Comment on above: Performed By: #### C DP, CP, LIP, TROPI, LIPRF, GLYHGB #### [id number] [place], [place] [id number] Rafter Cutting Machine Operator: Brandon Anaya MD CBC auto differentialon 09-24 Basophils (Bld) [#/Vol] 0.06 10*3/uL [place] Basophils/100 WBC (Bld) 1 % 0 - 2 % [place] Differential Type NOT REPORTED [place] Eosinophils (Bld) [#/Vol] 0.07 10*3/uL [place] Eosinophils/100 WBC (Bld) 1 % 1 - 4 % [place] Erythrocyte distribution width (RBC) [Ratio] 14.5 % High 11.8 - 14.4 % [place] Hematocrit (Bld) [Volume fraction] 42.7 % 36.3 - 47.1 % [place] Hemoglobin (Bld) [Mass/Vol] 13.5 g/dL 11.9 - 15.1 g/dL [place] Immature granulocytes (Bld) [#/Vol] 0.05 10*3/uL [place] Immature granulocytes (Bld) [#/Vol] 1 % High 0 [place] Interpretation and review of laboratory results Abnormal [place] Lymphocytes (Bld) [#/Vol] 1.05 10*3/uL Low [place] Lymphocytes/100 WBC (Bld) 14 % Low 24 - 43 % [place] MCH (RBC) [Entitic mass] 29.8 pg 25.2 - 33.5 pg [place] MCHC (RBC) [Mass/Vol] 31.6 g/dL 28.4 - 34.8 g/dL [place] MCV (RBC) [Entitic vol] 94.3 fL 82.6 - 102.9 fL [place] Monocytes (Bld) [#/Vol] 0.65 10*3/uL [place] Monocytes/100 WBC (Bld) 9 % 3 - 12 % [place] Platelet mean volume (Bld) [Entitic vol] 10.9 fL 8.1 - 13.5 fL [place] Platelets (Bld) [#/Vol] 170 10*3/uL [place] Platelets (Bld) [#/Vol] NOT REPORTED [place] RBC (Bld) [#/Vol] 4.53 10*6/uL 3.95 - 5.1 1 m/uL [place] RBC morphology finding Nom (Bld) ANISOCYTOSIS PRESENT [place] Segmented neutrophils/100 WBC (Bld) 74 % High 36 - 65 % [place] Segs Absolute 5.55 [place] WBC (Bld) [#/Vol] 0.0 10*3/uL 0.0 per 10 0 WBC [place] WBC (Bld) [#/Vol] 7.4 10*3/uL [place] WBC Morphology NOT REPORTED [place] CBC with Diffon 10-10-2019 Abs. Basophil 0.06 k/uL Normal 0.00-0.20 [facility] Comment on above: Performed By: #### C DP, CP, LIP, TROPI, LIPRF, GLYHGB #### [employer] Reissued [address] [place] [address] Rafter Cutting Machine Operator: Brandon Anaya MD Abs.Imm.Granulocyte 0.05 k/uL Normal 0.00-0.30 [facility] Comment on above: Performed By: #### C DP, CP, LIP, TROPI, LIPRF, GLYHGB #### [place] [address] Rafter Cutting Machine Operator: Brandon Anaya MD Abs.Neutrophil (Seg) 5.55 k/uL Normal 1.50-8.10 [facility] Comment on above: Performed By: #### C DP, CP, LIP, TROPI, LIPRF, GLYHGB #### [place] [address] Rafter Cutting Machine Operator: Brandon Anaya MD Basophils/100 WBC (Bld) 1 % Normal 0-2 [facility] Comment on above: Performed By: #### C DP, CP, LIP, TROPI, LIPRF, GLYHGB #### [place] [address] Rafter Cutting Machine Operator: Brandon Anaya MD Eosinophils (Bld) [#/Vol] 0.07 10*3/uL Normal 0.00-0.44 [facility] Comment on above: Performed By: #### C DP, CP, LIP, TROPI, LIPRF, GLYHGB #### [place] [address] Rafter Cutting Machine Operator: Brandon Anaya MD Eosinophils/100 WBC (Bld) 1 % Normal 1-4 [facility] Comment on above: Performed By: #### C DP, CP, LIP, TROPI, LIPRF, GLYHGB #### [place] [address] Rafter Cutting Machine Operator: Brandon Anaya MD Erythrocyte distribution width (RBC) [Ratio] 14.5 % High 11.8-14.4 [facility] Comment on above: Performed By: #### C DP, CP, LIP, TROPI, LIPRF, GLYHGB #### [address] [address] Rafter Cutting Machine Operator: Brandon Anaya MD Hematocrit (Bld) [Volume fraction] 42.7 % Normal 36.3-47.1 [facility] Comment on above: Performed By: #### C DP, CP, LIP, TROPI, LIPRF, GLYHGB #### [address] [address] Rafter Cutting Machine Operator: Brandon Anaya MD Hemoglobin (Bld) [Mass/Vol] 13.5 g/dL Normal 11.9-15.1 [facility] Comment on above: Performed By: #### C DP, CP, LIP, TROPI, LIPRF, GLYHGB #### [address] [address] Rafter Cutting Machine Operator: Brandon Anaya MD Immature granulocytes (Bld) [#/Vol] 1 % High 0 [facility] Comment on above: Performed By: #### C DP, CP, LIP, TROPI, LIPRF, GLYHGB #### [address] [address] R[place] Cutting Machine Operator: Brandon Anaya MD Lymphocytes (Bld) [#/Vol] 1.05 10*3/uL Low 1.10-3.70 [facility] Comment on above: Performed By: #### C DP, CP, LIP, TROPI, LIPRF, GLYHGB #### [address] [address] R[place] Cutting Machine Operator: Brandon Anaya MD Lymphocytes/100 WBC (Bld) 14 % Low 24-43 [facility] Comment on above: Performed By: #### C DP, CP, LIP, TROPI, LIPRF, GLYHGB #### [facility] Reissued [address] [place] [id number] Rafter Cutting Machine Operator: Brandon Anaya MD MCH (RBC) [Entitic mass] 29.8 pg Normal 25.2-33.5 [facility] Comment on above: Performed By: #### C DP, CP, LIP, TROPI, LIPRF, GLYHGB #### [address] [address] Rafter Cutting Machine Operator: Brandon Anaya MD MCHC (RBC) [Mass/Vol] 31.6 g/dL Normal 28.4-34.8 [facility] Comment on above: Performed By: #### C DP, CP, LIP, TROPI, LIPRF, GLYHGB #### [address] [address] Rafter Cutting Machine Operator: Brandon Anaya MD MCV (RBC) [Entitic vol] 94.3 fL Normal 82.6-102.9 [facility] Comment on above: Performed By: #### C DP, CP, LIP, TROPI, LIPRF, GLYHGB #### [place] [address] Rafter Cutting Machine Operator: Brandon Anaya MD Monocytes (Bld) [#/Vol] 0.65 10*3/uL Normal 0.10-1.20 [facility] Comment on above: Performed By: #### C DP, CP, LIP, TROPI, LIPRF, GLYHGB #### [address] [address] [place] Cutting Machine Operator: Brandon Anaya MD Monocytes/100 WBC (Bld) 9 % Normal 3-12 [facility] Comment on above: Performed By: #### C DP, CP, LIP, TROPI, LIPRF, GLYHGB #### [address] [address] [place] Cutting Machine Operator: Brandon Anaya MD Neutrophil (Seg) 74 % High 36-65 [facility] Comment on above: Performed By: #### C DP, CP, LIP, TROPI, LIPRF, GLYHGB #### [address] [address] [place] Cutting Machine Operator: Brandon Anaya MD NRBC Automated 0.0 per [address] [facility] Comment on above: Performed By: #### C DP, CP, LIP, TROPI, LIPRF, GLYHGB #### [address] [address] [place] Cutting Machine Operator: Brandon Anaya MD Platelet mean volume (Bld) [Entitic vol] 10.9 fL Normal 8.1-13.5 [facility] Comment on above: Performed By: #### C DP, CP, LIP, TROPI, LIPRF, GLYHGB #### [address] [address] [place] Cutting Machine Operator: Brandon Anaya MD Platelets (Bld) [#/Vol] 170 10*3/uL Normal 138-453 [facility] Comment on above: Performed By: #### C DP, CP, LIP, TROPI, LIPRF, GLYHGB #### [address] [address] [place] Cutting Machine Operator: Brandon Anaya MD RBC (Bld) [#/Vol] 4.53 10*6/uL Normal 3.95-5.11 [facility] Comment on above: Performed By: #### C DP, CP, LIP, TROPI, LIPRF, GLYHGB #### [address] [address] [place] Cutting Machine Operator: Brandon Anaya MD RBC morphology finding Nom (Bld) ANISOCYTOSIS PRESENT Normal [facility] Comment on above: Performed By: #### C DP, CP, LIP, TROPI, LIPRF, GLYHGB #### [address] [address] [place] Cutting Machine Operator: Brandon Anaya MD WBC (Bld) [#/Vol] 7.4 10*3/uL Normal 3.5-11.3 [facility] Comment on above: Performed By: #### C DP, CP, LIP, TROPI, LIPRF, GLYHGB #### [address] [address] [place] Cutting Machine Operator: Brandon Anaya MD Auto Diff Performed NOT REPORTED Normal [facility] Comment on above: Performed By: #### C DP, CP, LIP, TROPI, LIPRF, GLYHGB #### [address] [address] [place] Cutting Machine Operator: Brandon Anaya MD Platelets (Bld) [#/Vol] NOT REPORTED Normal [facility] Comment on above: Performed By: #### C DP, CP, LIP, TROPI, LIPRF, GLYHGB #### [address] [address] [place] Cutting Machine Operator: Brandon Anaya MD WBC Morphology NOT REPORTED Normal [facility] Comment on above: Performed By: #### C DP, CP, LIP, TROPI, LIPRF, GLYHGB #### [address] [address] [place] Cutting Machine Operator: Brandon Anaya MD CT HEAD WO CONTRASTon [...] Naga Browning MD 10/10/[address] [facility] 1. No acute intracra nial abnormality. 2. Mild chronic white matter microvascular ischemic changes. [place] EXAMINATION: CT OF T HE HEAD [...] of the visualized skull or soft tissues. [place], pn Incoming Radiant Results From [employer] - 10/10/2019 5:31 PM EDT EXAMINATION: CT [...] Mild chronic white matter microvascular ischemic changes. [place] CTA HEAD NECK W CONTRASTon 0 [...] Initial FINDINGS: CTA NECK: AORTIC ARCH/ARCH VESSELS: [id number]-[id number] atherosclerotic plaque at the arch arch and [...] Naga Browning MD 10/10/[address] [facility] EXAMINATION: CTA OF THE HEAD AND [...] Initial FINDINGS: CTA NECK: AORTIC ARCH/ARCH VESSELS: Lfur-[id number] atherosclerotic plaque at the arch arch and [...] collection. The salmeron-white differentiation is maintained. [facility] MD 1. No acute arterial abnormality or hemodynamically significant arterial stenosis in the head or neck. 2. No intracranial aneurysm. [place], Mhpn Incoming Radiant Results From [employer] - 10/10/2019 5:36 PM EDT EXAMINATION: CTA [...] Initial FINDINGS: CTA NECK: AORTIC ARCH/ARCH VESSELS: Vtve-ex-cpidgksr atherosclerotic plaque at the arch arch and [...] head or neck. 2. No intracranial aneurysm. [place] Hemoglobin A1Con 10-10-2019 HbA1c (Bld) [Mass fraction] 111 mg/dL Normal [facility] Comment on above: Result Comment: The ADA and AACC recommend providing the estimated average glucose result to permit better patient understanding of their HBA1c result. Performed By: #### C DP, CP, LIP, TROPI, LIPRF, GLYHGB #### [employer] [facility] [place], [place] [id number] Rafter Cutting Machine Operator: Brandon Anaya MD HbA1c (Bld) [Mass fraction] 5.5 % Normal 4.0-6.0 [facility] Comment on above: Performed By: #### C DP, CP, LIP, TROPI, LIPRF, GLYHGB #### [employer] [address] [place] [address] [phone] [place] Cutting Machine Operator: Brandon Anaya MD Glucose [Mass/Vol] 111 mg/dL [place] Comment on above: The ADA and AACC rec ommend providing the estimated average glucose result to permit better patient understanding of their HBA1c result. HbA1c (Bld) [Mass fraction] 5.5 % 4 - 6 % [place] LACTIC ACID, WHOLE BLOODon 0 10-10-2019 Lactic Acid, Whole Blood 1.0 mmol/L 0.7 - 2.1 mmol/L [place] Lactic Acid,Whole Blon 10-09 Lactic Acid,Whole Bl 1.0 mmol/L Normal 0.7-2.1 [facility] Comment on above: Performed By: #### C DP, CP, LIP, TROPI, LIPRF, GLYHGB #### [facility] [address] [place], [place] [phone] R[place] Cutting Machine Operator: Brandon Anaya MD Magnesiumon 10-10-2019 Magnesium [Mass/Vol] 2.1 mg/dL Normal 1.6-2.6 [facility] Comment on above: Performed By: #### C DP, CP, LIP, TROPI, LIPRF, GLYHGB #### [facility] [place] [address] Rafter Cutting Machine Operator: Brandon Anaya MD Magnesium [Mass/Vol] 2.1 mg/dL 1.6 - 2 .6 mg/dL [facility] Otheron 10-10-2019 1. Subtle sclerosis subjacent to the L2 and L3 superior endplates is age-indeterminate and could represent trabecular condensation associated with acute or subacute endplate fractures. MRI of the lumbar spine is recommended for further evaluation. 2. No acute osseous abnormality of the sacrum or coccyx. 3. Osteopenia. [place] Pri[place], Mhpn Incoming Radiant Results From [employer] - 10/10/2019 8:19 PM EDT EXAMINATION: THREE [...] of the sacrum or coccyx. 3. Osteopenia. [place] EXAMINATION: THREE X RAY VIEWS OF [...] the urinary bladder. Atherosclerotic calcifications are present. [place] POC Glucose Fingerstickon Glucose [Mass/Vol] 159 mg/dL High 65 - 105 mg/dL [place] Interpretation and review of laboratory results Abnormal [place] Glucose [Mass/Vol] 186 mg/dL High 65 - 105 mg/dL [place] Interpretation and review of laboratory results Abnormal [place] Glucose [Mass/Vol] 135 mg/dL High 65 - 105 mg/dL [place] Interpretation and review of laboratory results Abnormal [place] Procalcitoninon 10-10-2019 Procalcitonin 0.15 ng/mL High <0.09 [facility] Comment on above: Result Comment: Suspected [...] entered into the Change in Procalcitonin Calculator (www.wdsfhz-nin-filqpcdvcx.com) to determine the patient's Mortality Risk Prognosis In healthy neonates, plasma Procalcitonin (PCT) concentrations increase gradually after , reaching peak values at about 24 hours of age then decrease to normal values below 0.5 ng/mL by 48-72 hours of age. Performed By: #### C DP, CP, LIP, TROPI, LIPRF, GLYHGB #### [facility] Reissued [facility] [place] [address] Rafter Cutting Machine Operator: Brandon Anaya MD Interpretation and review of laboratory results Abnormal [place] Procalcitonin 0.15 ng/mL High <0.09 [place] Comment on above: Suspected Sepsis: <0.50 [...] entered into the Change in Procalcitonin Calculator (www.zxjxrs-ipy-ebmiifhahk.com) to determine the patient's Mortality Risk Prognosis In healthy neonates, plasma Procalcitonin (PCT) concentrations increase gradually after , reaching peak values at about 24 hours of age then decrease to normal values below 0.5 ng/mL by 48-72 hours of age. Sedimentation Rateon 020 Sedimentation Rate 8 mm Normal 0-30 [facility] Comment on above: Performed By: #### C DP, CP, LIP, TROPI, LIPRF, GLYHGB #### [facility] [place] [address] [place]after Cutting Machine Operator: Brandon Anaya MD Sed Rate 8 mm 0 - 30 mm [place] TSH w/reflex to FT4on 2019 TSH Qn 1.05 m[IU]/L Normal 0.30-5.00 [facility] Comment on above: Performed By: #### C DP, CP, LIP, TROPI, LIPRF, GLYHGB #### [facility] Reissued [address] [place] [address] Rafter Cutting Machine Operator: Brandon Anaya MD TSH with Reflexon 10-10-2019 TSH Qn 1.05 m[IU]/L [facility] [place], [place] XR LUMBAR SPINE (2-3 [...] Naga Browning MD 10/10/[address] [facility] XR SACRUM COCCYX (MIN 2 VIEW [...] Naga Browning MD 10/10/[address] [facility] Beta Hydroxybutyrateon 10-08 Beta Hydroxybutyrate 0.09 mmol/L Normal 0.02-0.27 [facility] Comment on above: Performed By: #### T OSMAR #### [employer] [address] [place] [phone] [place] Cutting Machine Operator: Brandon Anaya MD Beta-Hydroxybutyrateon 10-08 Beta-Hydroxybutyrate 0.09 mmol/L 0.02 - 0.27 mmol/L [place] CBC WITH AUTO DIFFERENTIALon 10-09-2019 Basophils (Bld) [#/Vol] 0.03 10*3/uL [place] Basophils/100 WBC (Bld) 0 % 0 - 2 % [place] Differential Type NOT REPORTED [place] Eosinophils (Bld) [#/Vol] 10*3/uL [place] Eosinophils/100 WBC (Bld) 0 % Low 1 - 4 % [place] Erythrocyte distribution width (RBC) [Ratio] 14.2 % 11.8 - 14.4 % [place] Hematocrit (Bld) [Volume fraction] 44.6 % 36.3 - 47.1 % [place] Hemoglobin (Bld) [Mass/Vol] 14.2 g/dL 11.9 - 15.1 g/dL [place] Immature granulocytes (Bld) [#/Vol] 1 % High 0 [place] Immature granulocytes (Bld) [#/Vol] 0.06 10*3/uL [place] Interpretation and review of laboratory results Abnormal [place] Lymphocytes (Bld) [#/Vol] 0.97 10*3/uL Low [place] Lymphocytes/100 WBC (Bld) 13 % Low 24 - 43 % [place] MCH (RBC) [Entitic mass] 29.7 pg 25.2 - 33.5 pg [place] MCHC (RBC) [Mass/Vol] 31.8 g/dL 28.4 - 34.8 g/dL [place] MCV (RBC) [Entitic vol] 93.3 fL 82.6 - 102.9 fL [place] Monocytes (Bld) [#/Vol] 0.52 10*3/uL [place] Monocytes/100 WBC (Bld) 7 % 3 - 12 % [place] Platelet mean volume (Bld) [Entitic vol] 10.9 fL 8.1 - 13.5 fL [place] Platelets (Bld) [#/Vol] NOT REPORTED [place] Platelets (Bld) [#/Vol] 202 10*3/uL [place] RBC (Bld) [#/Vol] 4.78 10*6/uL 3.95 - 5.1 1 m/uL [place] RBC morphology finding Nom (Bld) NOT REPORTED [place] Segmented neutrophils/100 WBC (Bld) 79 % High 36 - 65 % [place] Segs Absolute 6.10 [place] WBC (Bld) [#/Vol] 0.0 10*3/uL 0.0 per 10 0 WBC [place] WBC (Bld) [#/Vol] 7.7 10*3/uL [place] WBC Morphology NOT REPORTED [place] CBC with Diffon 10-09-2019 Abs. Basophil 0.03 k/uL Normal 0.00-0.20 [facility] Comment on above: Performed By: #### C DP, CP, LIP, TROPI, LIPRF, GLYHGB #### [address] [address] [place] Cutting Machine Operator: Brandon Anaya MD Abs.Imm.Granulocyte 0.06 k/uL Normal 0.00-0.30 [facility] Comment on above: Performed By: #### C DP, CP, LIP, TROPI, LIPRF, GLYHGB #### [address] [address] [place] Cutting Machine Operator: Brandon Anaya MD Abs.Neutrophil (Seg) 6.10 k/uL Normal 1.50-8.10 [facility] Comment on above: Performed By: #### C DP, CP, LIP, TROPI, LIPRF, GLYHGB #### [address] [address] [place] Cutting Machine Operator: Brandon Anaya MD Basophils/100 WBC (Bld) 0 % Normal 0-2 [facility] Comment on above: Performed By: #### C DP, CP, LIP, TROPI, LIPRF, GLYHGB #### [address] [address] [place] Cutting Machine Operator: Brandon Anaya MD Eosinophils (Bld) [#/Vol] 10*3/uL Normal 0.00-0.44 [facility] Comment on above: Performed By: #### C DP, CP, LIP, TROPI, LIPRF, GLYHGB #### [address] [address] [place] Cutting Machine Operator: Brandon Anaya MD Eosinophils/100 WBC (Bld) 0 % Low 1-4 [facility] Comment on above: Performed By: #### C DP, CP, LIP, TROPI, LIPRF, GLYHGB #### [address] [address] [place] Cutting Machine Operator: Brandon Anaya MD Erythrocyte distribution width (RBC) [Ratio] 14.2 % Normal 11.8-14.4 [facility] Comment on above: Performed By: #### C DP, CP, LIP, TROPI, LIPRF, GLYHGB #### [address] [address] [place] Cutting Machine Operator: Brandon Anaya MD Hematocrit (Bld) [Volume fraction] 44.6 % Normal 36.3-47.1 [facility] Comment on above: Performed By: #### C DP, CP, LIP, TROPI, LIPRF, GLYHGB #### [address] [address] [place] Cutting Machine Operator: Brandon Anaya MD Hemoglobin (Bld) [Mass/Vol] 14.2 g/dL Normal 11.9-15.1 [facility] Comment on above: Performed By: #### C DP, CP, LIP, TROPI, LIPRF, GLYHGB #### [address] [address] [place] Cutting Machine Operator: Brandon Anaya MD Immature granulocytes (Bld) [#/Vol] 1 % High 0 [facility] Comment on above: Performed By: #### C DP, CP, LIP, TROPI, LIPRF, GLYHGB #### [address] [address] [place] Cutting Machine Operator: Brandon Anaya MD Lymphocytes (Bld) [#/Vol] 0.97 10*3/uL Low 1.10-3.70 [facility] Comment on above: Performed By: #### C DP, CP, LIP, TROPI, LIPRF, GLYHGB #### [facility] Reissued [address] [place] [address] Rafter Cutting Machine Operator: Brandon Anaya MD Lymphocytes/100 WBC (Bld) 13 % Low 24-43 [facility] Comment on above: Performed By: #### C DP, CP, LIP, TROPI, LIPRF, GLYHGB #### [address] [address] [place] Cutting Machine Operator: Brandon Anaya MD MCH (RBC) [Entitic mass] 29.7 pg Normal 25.2-33.5 [facility] Comment on above: Performed By: #### C DP, CP, LIP, TROPI, LIPRF, GLYHGB #### [address] [address] [place] Cutting Machine Operator: Brandon Anaya MD MCHC (RBC) [Mass/Vol] 31.8 g/dL Normal 28.4-34.8 [facility] Comment on above: Performed By: #### C DP, CP, LIP, TROPI, LIPRF, GLYHGB #### [address] [address] [place] Cutting Machine Operator: Brandon Anaya MD MCV (RBC) [Entitic vol] 93.3 fL Normal 82.6-102.9 [facility] Comment on above: Performed By: #### C DP, CP, LIP, TROPI, LIPRF, GLYHGB #### [place] [address] Rafter Cutting Machine Operator: Brandon Anaya MD Monocytes (Bld) [#/Vol] 0.52 10*3/uL Normal 0.10-1.20 [facility] Comment on above: Performed By: #### C DP, CP, LIP, TROPI, LIPRF, GLYHGB #### [address] [address] [place] Cutting Machine Operator: Brandon Anaya MD Monocytes/100 WBC (Bld) 7 % Normal 3-12 [facility] Comment on above: Performed By: #### C DP, CP, LIP, TROPI, LIPRF, GLYHGB #### [address] [address] [place] Cutting Machine Operator: Brandon Anaya MD Neutrophil (Seg) 79 % High 36-65 [facility] Comment on above: Performed By: #### C DP, CP, LIP, TROPI, LIPRF, GLYHGB #### [address] [address] [place] Cutting Machine Operator: Brandon Anaya MD NRBC Automated 0.0 per [address] [facility] Comment on above: Performed By: #### C DP, CP, LIP, TROPI, LIPRF, GLYHGB #### [address] [address] [place] Cutting Machine Operator: Brandon Anaya MD Platelet mean volume (Bld) [Entitic vol] 10.9 fL Normal 8.1-13.5 [facility] Comment on above: Performed By: #### C DP, CP, LIP, TROPI, LIPRF, GLYHGB #### [address] [address] R[place] Cutting Machine Operator: Brandon Anaya MD Platelets (Bld) [#/Vol] 202 10*3/uL Normal 138-453 [facility] Comment on above: Performed By: #### C DP, CP, LIP, TROPI, LIPRF, GLYHGB #### [address] [address] [place] Cutting Machine Operator: Brandon Anaya MD RBC (Bld) [#/Vol] 4.78 10*6/uL Normal 3.95-5.11 [facility] Comment on above: Performed By: #### C DP, CP, LIP, TROPI, LIPRF, GLYHGB #### [address] [address] [place] Cutting Machine Operator: Brandon Anaya MD WBC (Bld) [#/Vol] 7.7 10*3/uL Normal 3.5-11.3 [facility] Comment on above: Performed By: #### C DP, CP, LIP, TROPI, LIPRF, GLYHGB #### [address] [address] [place] Cutting Machine Operator: Brandon Anaya MD Auto Diff Performed NOT REPORTED Normal [facility] Comment on above: Performed By: #### C DP, CP, LIP, TROPI, LIPRF, GLYHGB #### [address] [address] Rafter Cutting Machine Operator: Brandon Anaya MD Platelets (Bld) [#/Vol] NOT REPORTED Normal [facility] Comment on above: Performed By: #### C DP, CP, LIP, TROPI, LIPRF, GLYHGB #### [address] [address] Rafter Cutting Machine Operator: Brandon Anaya MD RBC morphology finding Nom (Bld) NOT REPORTED Normal [facility] Comment on above: Performed By: #### C DP, CP, LIP, TROPI, LIPRF, GLYHGB #### [address] [address] Rafter Cutting Machine Operator: Brandon Anaya MD WBC Morphology NOT REPORTED Normal [facility] Comment on above: Performed By: #### C DP, CP, LIP, TROPI, LIPRF, GLYHGB #### [address] [address] Rafter Cutting Machine Operator: Brandon Anaya MD COVID-19, PCRon 10-09-2019 SARS-CoV-2 [place] SARS-CoV-2, PCR [place] SARS-CoV-2, Rapid Not Detected Not Detected [place], [place] Comment on above: Rapid NAAT: The [...] management decisions. Fact sheet for Healthcare Providers: https://www.fda.gov/media/185575/download Fact sheet for Patients: https://www.fda.gov/media/109120/download Methodology: Isothermal Nucleic Acid Amplification Source .NASOPHARYNGEAL SWAB [place], [place] CT CHEST PULMONARY EMBOLISM W CONTRASTon [...] Wendy Darby MD 10/09/[address] [facility] No central or segmen rhett pulmonary embolus. No acute pulmonary process. Emphysema. [place] EXAMINATION: CTA OF THE CHEST 10/09/2019 [...] focal consolidation. Bones: Thoracic spine degenerative changes. [facility] [place] [place] Incoming Radiant Results From [employer] - 10/09/2019 8:31 AM EDT EXAMINATION: CTA [...] pulmonary embolus. No acute pulmonary process. Emphysema. [employer] Metabolic Profon 2019 (cont.) Normal [facility] Comment on above: Result Comment: Aver age GFR for 70 or more years old: 75 mL/min/1.73sq m Chronic Kidney Disease: <60 mL/min/1.73sq m Kidney failure: <15 mL/min/1.73sq m eGFR calculated using average adult body mass. Additional eGFR calculator available at: http://www.Vastech/multiple_crcl_2011.htm Performed By: #### C DP, CP, LIP, TROPI, LIPRF, GLYHGB #### [address] [address] R[place] Cutting Machine Operator: Brandon Anaya MD Albumin [Mass/Vol] 4.1 g/dL Normal 3.5-5.2 [facility] Comment on above: Performed By: #### C DP, CP, LIP, TROPI, LIPRF, GLYHGB #### [address] [address] [place] Cutting Machine Operator: Brandon Anaya MD Albumin/Globulin [Mass ratio] 1.6 {ratio} Normal 1.0-2.5 [facility] Comment on above: Performed By: #### C DP, CP, LIP, TROPI, LIPRF, GLYHGB #### [address] [address] R[place] Cutting Machine Operator: Brandon Anaya MD Alkaline Phos 90 U/L Normal 35-104 [facility] Comment on above: Performed By: #### C DP, CP, LIP, TROPI, LIPRF, GLYHGB #### [address] [address] [place] Cutting Machine Operator: Brandon Anaya MD ALT [Catalytic activity/Vol] 15 U/L Normal 5-33 [facility] Comment on above: Performed By: #### C DP, CP, LIP, TROPI, LIPRF, GLYHGB #### [address] [address] R[place] Cutting Machine Operator: Brandon Anaya MD Anion gap [Moles/Vol] 18 mmol/L High 9-17 [facility] Comment on above: Performed By: #### C DP, CP, LIP, TROPI, LIPRF, GLYHGB #### [facility] Reissued [address] [place] [address] Rafter Cutting Machine Operator: Brandon Anaya MD AST [Catalytic activity/Vol] 11 U/L Normal <32 [facility] Comment on above: Performed By: #### C DP, CP, LIP, TROPI, LIPRF, GLYHGB #### [address] [address] R[place] Cutting Machine Operator: Brandon Anaya MD Bilirubin Ql (U) 0.39 mg/dL Normal 0.3-1.2 [facility] Comment on above: Performed By: #### C DP, CP, LIP, TROPI, LIPRF, GLYHGB #### [address] [address] R[place] Cutting Machine Operator: Brandon Anaya MD Calcium [Mass/Vol] 9.5 mg/dL Normal 8.6-10.4 [facility] Comment on above: Performed By: #### C DP, CP, LIP, TROPI, LIPRF, GLYHGB #### [facility] Reissued [address] [place] [address] Rafter Cutting Machine Operator: Brandon Anaya MD Chloride [Moles/Vol] 99 mmol/L Normal 98-107 [facility] Comment on above: Performed By: #### C DP, CP, LIP, TROPI, LIPRF, GLYHGB #### [facility] Reissued [address] [place] [address] Rafter Cutting Machine Operator: Brandon Anaya MD CO2 [Moles/Vol] 24 mmol/L Normal 20-31 [facility] Comment on above: Performed By: #### C DP, CP, LIP, TROPI, LIPRF, GLYHGB #### [facility] Reissued [address] [place] [address] Rafter Cutting Machine Operator: Brandon Anaya MD Creatinine [Mass/Vol] 0.63 mg/dL Normal 0.50-0.90 [facility] Comment on above: Performed By: #### C DP, CP, LIP, TROPI, LIPRF, GLYHGB #### [facility] Reissued [address] [place] [address] Rafter Cutting Machine Operator: Brandon Anaya MD GFR, Amer >60 Normal >60 [facility] Comment on above: Performed By: #### C DP, CP, LIP, TROPI, LIPRF, GLYHGB #### [facility] Reissued [address] [place] [address] Rafter Cutting Machine Operator: Brandno Anaya MD GFR,non Amer >60 Normal >60 [facility] Comment on above: Performed By: #### C DP, CP, LIP, TROPI, LIPRF, GLYHGB #### [facility] Reissued [address] [place] [address] Rafter Cutting Machine Operator: Brandon Anaya MD Glucose [Mass/Vol] 208 mg/dL High 70-99 [facility] Comment on above: Performed By: #### C DP, CP, LIP, TROPI, LIPRF, GLYHGB #### [facility] Reissued [address] [place] [address] Rafter Cutting Machine Operator: Brandon Anaya MD Potassium [Moles/Vol] 3.9 mmol/L Normal 3.7-5.3 [facility] Comment on above: Performed By: #### C DP, CP, LIP, TROPI, LIPRF, GLYHGB #### [facility] Reissued [address] [place] [address] Rafter Cutting Machine Operator: Brandon Anaya MD Protein [Mass/Vol] 6.6 g/dL Normal 6.4-8.3 [facility] Comment on above: Performed By: #### C DP, CP, LIP, TROPI, LIPRF, GLYHGB #### [facility] Reissued [address] [place] [address] Rafter Cutting Machine Operator: Brandon Anaya MD Sodium [Moles/Vol] 141 mmol/L Normal 135-144 [facility] Comment on above: Performed By: #### C DP, CP, LIP, TROPI, LIPRF, GLYHGB #### [facility] Reissued [address] [place] [address] Rafter Cutting Machine Operator: Brandon Anaya MD Urea nitrogen [Mass/Vol] 17 mg/dL Normal 8- [facility] Comment on above: Performed By: #### C DP, CP, LIP, TROPI, LIPRF, GLYHGB #### [facility] [address] [place] [address] Rafter Cutting Machine Operator: Brandon Anaya MD BUN/CRE Ratio NOT REPORTED Normal - [facility] Comment on above: Performed By: #### C DP, CP, LIP, TROPI, LIPRF, GLYHGB #### [facility] Reissued [address] [place] [address] Rafter Cutting Machine Operator: Brandon Anaya MD Staging: NOT REPORTED Normal [facility] Comment on above: Performed By: #### C DP, CP, LIP, TROPI, LIPRF, GLYHGB #### [facility] [address] [place] [address] Rafter Cutting Machine Operator: Brandon Anaya MD Comprehensive Metabolic Pane [facility] 10-09-2019 Albumin [Mass/Vol] 4.1 g/dL 3.5 - 5.2 g/dL [place] Albumin/Globulin [Mass ratio] 1.6 {ratio} [place] ALP [Catalytic activity/Vol] 90 U/L 35 - 104 U/L [place] ALT [Catalytic activity/Vol] 15 U/L 5 - 33 U/L [place] Anion gap [Moles/Vol] 18 mmol/L High 9 - 17 mmol/L [place] AST [Catalytic activity/Vol] 11 U/L <32 [place] Bilirubin Ql (U) 0.39 mg/dL 0.3 - 1.2 mg/dL [place] Bun/Cre Ratio NOT REPORTED [place] Calcium [Mass/Vol] 9.5 mg/dL 8.6 - 10. 4 mg/dL [place] Chloride [Moles/Vol] 99 mmol/L 98 - 10 7 mmol/L [place] CO2 [Moles/Vol] 24 mmol/L 20 - 31 mmol/L [place] Creatinine [Mass/Vol] 0.63 mg/dL 0.5 - 0.9 mg/dL [place] GFR >60 >60 mL/min [place] GFR Non- >60 >60 mL/min [place], [place] GFR/1.73 sq M predicted among non-blacks MDRD (S/P/Bld) [Vol rate/Area] [place], [place] Comment on above: Average GFR for 70 o r more years old: 75 mL/min/1.73sq m Chronic Kidney Disease: <60 mL/min/1.73sq m Kidney failure: <15 mL/min/1.73sq m eGFR calculated using average adult body mass. Additional eGFR calculator available at: http://www.[employer]/multiple_crcl_2012.htm GFR/1.73 sq M predicted among non-blacks MDRD (S/P/Bld) [Vol rate/Area] NOT REPORTED [place] Glucose [Mass/Vol] 208 mg/dL High 70 - 99 mg/dL [place], [place] Interpretation and review of laboratory results Abnormal [place], [place] Potassium [Moles/Vol] 3.9 mmol/L 3.7 - 5.3 mmol/L [place] Protein [Mass/Vol] 6.6 g/dL 6.4 - 8.3 g/dL [place] Sodium [Moles/Vol] 141 mmol/L 135 - 144 mmol/L [place] Urea nitrogen [Mass/Vol] 17 mg/dL 8 - 23 mg/dL [place] EKG 12 Leadon 10-09-2019 Atrial Rate 70 BPM [place] P [place] 54 degrees [place] P-R Interval 136 ms [place] Q-T Interval 432 ms [facility], [place] QRS Duration 80 ms [place] QTc Calculation (Bazett) 466 ms [place] R [place] -9 degrees [facility], [place] T [place] 3 degrees [facility], [place] Ventricular Rate 70 BPM [place], [place] Prieto, Mhpn Incoming E kg Results From [facility] [place] - 10/09/2019 3:25 PM EDT Normal sinus rhythm Possible Left atrial enlargement Nonspecific ST abnormality Abnormal ECG No previous ECGs available [place], [place] Normal sinus rhythm Possible Left atrial enlargement Nonspecific ST abnormality Abnormal ECG No previous ECGs available [place] LIPASEon 10-09-2019 Lipase [Catalytic activity/Vol] 48 U/L 13 - 60 U/L [place] Lipaseon 10-09-2019 Lipase [Catalytic activity/Vol] 48 U/L Normal 13-60 [facility] Comment on above: Performed By: #### C DP, CP, LIP, TROPI, LIPRF, GLYHGB #### [facility] [address] [place] [address] Rafter Cutting Machine Operator: Brandon Anaya MD Lipid Prof, Fastingon 2019 Cholesterol [Mass/Vol] 229 mg/dL High <200 [place] Comment on above: Result Comment: Cholesterol Guidelines: <200 Desirable 200-240 Borderline >240 Undesirable Performed By: #### C DP, CP, LIP, TROPI, LIPRF, GLYHGB #### [facility] [address] [place] [address] Rafter Cutting Machine Operator: Brandon Anaya MD Cholesterol in HDL [Mass/Vol] 50 mg/dL Normal >40 [facility] Comment on above: Result Comment: HDL Guidelines: <40 Undesirable 40-59 Borderline >59 Desirable Performed By: #### C DP, CP, LIP, TROPI, LIPRF, GLYHGB #### [facility] [address] [place] [address] [phone] Rafter Cutting Machine Operator: Brandon Anaya MD Cholesterol in LDL [Mass/Vol] 143 mg/dL High 0-130 [facility] Comment on above: Result Comment: LDL Guidelines: <100 Desirable 100-129 Near to/above Desirable 130-159 Borderline >159 Undesirable Direct (measured) LDL and calculated LDL are not interchangeable tests. Performed By: #### C DP, CP, LIP, TROPI, LIPRF, GLYHGB #### [facility] Reissued [address] [place] [address] [phone] Rafter Cutting Machine Operator: Brandon Anaya MD Cholesterol.total/Chol esterol in HDL [Mass ratio] 4.6 {ratio} Normal <5 [facility] Comment on above: Performed By: #### C DP, CP, LIP, TROPI, LIPRF, GLYHGB #### [facility] Reissued [address] [place] [phone] Rafter Cutting Machine Operator: Brandon Anaya MD Triglyceride,Fasting 182 mg/dL High <150 [facility] Comment on above: Result Comment: Triglyceride Guidelines: <150 Desirable 150-199 Borderline 200-499 High >499 Very high Based on AHA Guidelines for fasting triglyceride, November 2011. Performed By: #### C DP, CP, LIP, TROPI, LIPRF, GLYHGB #### [facility] Reissued [facility] [place] [address] Rafter Cutting Machine Operator: Brandon Anaya MD Cholesterol in VLDL [Mass/Vol] NOT REPORTED Normal -30 [facility] Comment on above: Performed By: #### C DP, CP, LIP, TROPI, LIPRF, GLYHGB #### [facility] Reissued [facility] [place] [address] Rafter Cutting Machine Operator: Brandon Anaya MD Lipid, Fastingon 10-09-2019 Cholesterol [Mass/Vol] 229 mg/dL High <200 [place] Comment on above: Cholesterol Guidelines: <200 Desirable 200-240 Borderline >240 Undesirable Cholesterol in HDL [Mass/Vol] 50 mg/dL >40 [place], [place] Comment on above: HDL Guidelines: <40 Undesirable 40-59 Borderline >59 Desirable Cholesterol in LDL [Mass/Vol] 143 mg/dL High 0 - 130 mg/dL [place], [place] Comment on above: LDL Guidelines: <100 Desirable 100-129 Near to/above Desirable 130-159 Borderline >159 Undesirable Direct (measured) LDL and calculated LDL are not interchangeable tests. Cholesterol in VLDL [Mass/Vol] NOT REPORTED High 1 - 30 mg/dL [place] Cholesterol.total/Chol esterol in HDL [Mass ratio] 4.6 {ratio} <5 [place] Interpretation and review of laboratory results Abnormal [place] Triglyceride, Fasting 182 mg/dL High <150 [place] Comment on above: Triglyceride Guidelines: <150 Desirable 150-199 Borderline 200-499 High >499 Very high Based on AHA Guidelines for fasting triglyceride, November 2011. POC Glucose Fingerstickon Glucose [Mass/Vol] 126 mg/dL High 65 - 105 mg/dL [place], [place] Interpretation and review of laboratory results Abnormal [place] [id number] 10-09-2019 SARS-CoV-[address] [facility] Comment on above: Performed By: #### C OVID #### [facility] Reissued [address] [place] [phone] Rafter Cutting Machine Operator: Brandon Anaya MD SARS-CoV-2,Rapid Not Detected Normal NOTDET [facility] Comment on above: Result Comment: Rapid [...] management decisions. Fact sheet for Healthcare Providers: https://www.fda.gov/media/403347/download Fact sheet for Patients: https://www.fda.gov/media/852244/download Methodology: Isothermal Nucleic Acid Amplification Performed By: #### C OVID #### [facility] [address] [place] [phone] Rafter Cutting Machine Operator: Brandon Anaya MD SARS-CoV-2 Source .NASOPHARYNGEAL SWAB Normal [facility] Comment on above: Performed By: #### C OVID #### [facility] [address] [place] [address] Rafter Cutting Machine Operator: Brandon Anaya MD Troponinon 10-09-2019 Troponin I.cardiac [Mass/Vol] 10 ng/L Normal 0-14 [facility] Comment on above: Result Comment: High Sensitivity Troponin values cannot be compared with other Troponin methodologies. Patients with high levels of Biotin oral intake (i.e >5mg/day) may have falsely decreased Troponin levels. Samples collected within 8 hours of biotin intake may require additional information for diagnosis. Performed By: #### T OSMAR #### [facility] [address] [place] [phone] Rafter Cutting Machine Operator: Brandon Anaya MD Troponin I.cardiac [Mass/Vol] NOT REPORTED Normal <0.03 [facility] Comment on above: Performed By: #### T OSMAR #### [facility] [address] [place] [phone] Rafter Cutting Machine Operator: rBandon Anaya MD Troponin I.cardiac [Mass/Vol] 10 ng/L Normal 0-14 [facility] Comment on above: Result Comment: High Sensitivity Troponin values cannot be compared with other Troponin methodologies. Patients with high levels of Biotin oral intake (i.e >5mg/day) may have falsely decreased Troponin levels. Samples collected within 8 hours of biotin intake may require additional information for diagnosis. Performed By: #### C DP, CP, LIP, TROPI, LIPRF, GLYHGB #### [facility] [address] [place], [place] [phone] Rafter Cutting Machine Operator: Brandon Anaya MD Troponin I.cardiac [Mass/Vol] NOT REPORTED [place] Troponin T.cardiac [Mass/Vol] NOT REPORTED <0.03 ng/mL [place] Troponin, High Sensitivity 10 ng/L 0 - 14 ng/L [place] Comment on above: High Sensitivity Troponin values cannot be compared with other Troponin methodologies. Patients with high levels of Biotin oral intake (i.e >5mg/day) may have falsely decreased Troponin levels. Samples collected within 8 hours of biotin intake may require additional information for diagnosis. Troponin I.cardiac [Mass/Vol] NOT REPORTED Normal <0.03 [facility] Comment on above: Performed By: #### C DP, CP, LIP, TROPI, LIPRF, GLYHGB #### [facility] [address] [place] [phone] Rafter Cutting Machine Operator: Brandon Anaya MD Troponin I.cardiac [Mass/Vol] NOT REPORTED [place] Troponin T.cardiac [Mass/Vol] NOT REPORTED <0.03 ng/mL [place] Troponin, High Sensitivity 10 ng/L 0 - 14 ng/L [place] Comment on above: High Sensitivity Troponin values cannot be compared with other Troponin methodologies. Patients with high levels of Biotin oral intake (i.e >5mg/day) may have falsely decreased Troponin levels. Samples collected within 8 hours of biotin intake may require additional information for diagnosis. UA w/Reflex Cultureon 2019 Acetoacetic Acid,Ur TRACE Abnormal NEG [facility] Comment on above: Performed By: #### C DP, CP, LIP, TROPI, LIPRF, GLYHGB #### [facility] [address] [place] [address] [phone] Rafter Cutting Machine Operator: Brandon Anaya MD Bilirubin, SemiQt,Ur Negative Normal NEG [facility] Comment on above: Performed By: #### C DP, CP, LIP, TROPI, LIPRF, GLYHGB #### [address] [address] Rafter Cutting Machine Operator: Brandon Anaya MD Color (U) YELLOW Normal YEL [facility] Comment on above: Performed By: #### C DP, CP, LIP, TROPI, LIPRF, GLYHGB #### [address] [address] Rafter Cutting Machine Operator: Brandon Anaya MD Glucose Ql (U) Negative Normal NEG [facility] Comment on above: Performed By: #### C DP, CP, LIP, TROPI, LIPRF, GLYHGB #### [address] [address] Rafter Cutting Machine Operator: Brandon Anaya MD Hemoglobin, Ur Negative Normal NEG [facility] Comment on above: Performed By: #### C DP, CP, LIP, TROPI, LIPRF, GLYHGB #### [address] [address] Rafter Cutting Machine Operator: Brandon Anaya MD Leukocyte esterase Test strip Ql (U) Negative Normal NEG [facility] Comment on above: Performed By: #### C DP, CP, LIP, TROPI, LIPRF, GLYHGB #### [address] [address] Rafter Cutting Machine Operator: Brandon Anaya MD Nitrite,Ur Negative Normal NEG [facility] Comment on above: Performed By: #### C DP, CP, LIP, TROPI, LIPRF, GLYHGB #### [address] [address] Rafter Cutting Machine Operator: Brandon Anaya MD pH (U) 5.5 [pH] Normal 5.0-8.0 [facility] Comment on above: Performed By: #### C DP, CP, LIP, TROPI, LIPRF, GLYHGB #### [address] [address] Rafter Cutting Machine Operator: Brandon Anaya MD Protein Ql (U) 1+ Abnormal NEG [facility] Comment on above: Performed By: #### C DP, CP, LIP, TROPI, LIPRF, GLYHGB #### [place] [id number] [place] [address] Rafter Cutting Machine Operator: Brandon Anaya MD Specific gravity (U) [Rel density] 1.086 High 1.005-1.030 [facility] Comment on above: Performed By: #### C DP, CP, LIP, TROPI, LIPRF, GLYHGB #### [address] [address] Rafter Cutting Machine Operator: Brandon Anaya MD Turbidity CLEAR Normal CLEAR [facility] Comment on above: Performed By: #### C DP, CP, LIP, TROPI, LIPRF, GLYHGB #### [address] [address] Rafter Cutting Machine Operator: Brandon Anaya MD Urobilinogen,Ur Normal Normal NORM [facility] Comment on above: Performed By: #### C DP, CP, LIP, TROPI, LIPRF, GLYHGB #### [address] [address] Rafter Cutting Machine Operator: Brandon Anaya MD Comment NOT REPORTED Normal [facility] Comment on above: Performed By: #### C DP, CP, LIP, TROPI, LIPRF, GLYHGB #### [address] [address] Rafter Cutting Machine Operator: Brandon Anaya MD URINALYSIS, MICROon 10-09-19 20 Amorphous, UA NOT REPORTED None [facility] Bacteria, UA NOT REPORTED None [facility] [place] Casts UA NOT REPORTED [facility] [place] Crystals, UA NOT REPORTED None /HPF [facility] [place] Epithelial Cells UA 10 TO 20 [facility] [place] Mucus, UA NOT REPORTED None [place], [place] Other Observations UA NOT REPORTED NOT REQ. M [place], [place] RBC (U) [#/Vol] 0 TO 2 [place] Renal Epithelial, UA NOT REPORTED 0 /HPF [place] Trichomonas, UA NOT REPORTED None [place] WBC, UA 0 TO 2 [place] Yeast, UA NOT REPORTED None [place] US ABDOMEN LIMITEDon 020 US ABDOMEN LIMITED EXAMINATION: RIGHT UPPER QUADRANT ULTRASOUND 10/09/2019 3:35 pm COMPARISON: None. HISTORY: ORDERING SYSTEM PROVIDED HISTORY: RUQ and epigastric pain, r/o cholecystitis, gall bladder, pancreas professor of pathology PROVIDED HISTORY: RUQ and epigastric pain, r/o [...] Fransisco Ochoa MD 10/09/[address] [facility] US ABDOMEN LIMITED Specify o rgan? LIVER, GALLBLADDER, PANCREASon 10-09-2019 EXAMINATION: RIGHT U PPER QUADRANT ULTRASOUND 10/09/2019 3:35 pm COMPARISON: None. HISTORY: ORDERING SYSTEM PROVIDED HISTORY: RUQ and epigastric pain, r/o cholecystitis, gall bladder, pancreas professor of pathology PROVIDED HISTORY: RUQ and epigastric pain, r/o [...] No evidence of right upper quadrant ascites. [place], [place] Unremarkable right u pper quadrant ultrasound. [place] Prieto, Mhpn Incoming Radiant Results From rVitae/Pacs - 10/09/2019 4:01 PM EDT EXAMINATION: RIGHT UPPER QUADRANT ULTRASOUND 10/09/2019 3:35 pm COMPARISON: None. HISTORY: ORDERING SYSTEM PROVIDED HISTORY: RUQ and epigastric pain, r/o cholecystitis, gall bladder, pancreas professor of pathology PROVIDED HISTORY: RUQ and epigastric pain, r/o [...] ascites. IMPRESSION: Unremarkable right upper quadrant ultrasound. [place] Urinalysis Reflex to Culture on 10-09-2019 Bilirubin Urine Negative NEGATIVE [place] Color, UA YELLOW YELLOW [place], [place] Glucose, Ur Negative NEGATIVE [place] Interpretation and review of laboratory results Abnormal [place] Ketones Ql (U) TRACE Abnormal NEGATIVE [place] Leukocyte esterase Test strip Ql (U) Negative NEGATIVE [place] Nitrite, Urine Negative NEGATIVE [place] pH, UA 5.5 [place] Protein (U) [Mass/Vol] 1+ Abnormal NEGATIVE [place], [place] Specific [place], UA 1.086 High [place], [place] Turbidity UA CLEAR CLEAR [place] Urinalysis Comments NOT REPORTED [place], [place] Urine Hgb Negative NEGATIVE [place] Urobilinogen, Urine Normal Normal [facility] [place], [place] Urinalysis,Microon 0 ----- Normal [facility] Comment on above: Performed By: #### C DP, CP, LIP, TROPI, LIPRF, GLYHGB #### [facility] Reissued [address] [place] [phone] Rafter Cutting Machine Operator: Brandon Anaya MD Epithelial cells LM.HPF (Urine sed) [#/Area] 10 TO 20 Normal 0-5 [facility] Comment on above: Performed By: #### C DP, CP, LIP, TROPI, LIPRF, GLYHGB #### [address] [address] Rafter Cutting Machine Operator: Brandon Anaya MD RBC (U) [#/Vol] 0 TO 2 Normal 0-2 [facility] Comment on above: Performed By: #### C DP, CP, LIP, TROPI, LIPRF, GLYHGB #### [address] [address] Rafter Cutting Machine Operator: Brandon Anaya MD WBC (U) [#/Vol] 0 TO 2 Normal 0-5 [facility] Comment on above: Performed By: #### C DP, CP, LIP, TROPI, LIPRF, GLYHGB #### [facility] Reissued [address] [place] [phone] Rafter Cutting Machine Operator: Brandon Anaya MD Amorphous sediment LM Ql (Urine sed) NOT REPORTED Normal [facility] Comment on above: Performed By: #### C DP, CP, LIP, TROPI, LIPRF, GLYHGB #### [facility] [address] [place] [phone] Rafter Cutting Machine Operator: Brandon Anaya MD Bacteria LM.HPF (Urine sed) [#/Area] NOT REPORTED Normal [facility] Comment on above: Performed By: #### C DP, CP, LIP, TROPI, LIPRF, GLYHGB #### [address] [address] Rafter Cutting Machine Operator: Brandon Anaya MD Casts LM.LPF (Urine sed) [#/Area] NOT REPORTED Normal 0-2 [facility] Comment on above: Performed By: #### C DP, CP, LIP, TROPI, LIPRF, GLYHGB #### [address] [address] Rafter Cutting Machine Operator: Brandon Anaya MD Crystals LM Nom (Urine sed) NOT REPORTED Normal NONE [facility] Comment on above: Performed By: #### C DP, CP, LIP, TROPI, LIPRF, GLYHGB #### [address] [address] Rafter Cutting Machine Operator: Brandon Anaya MD Epithelial, Renal NOT REPORTED Normal [address] [facility] Comment on above: Performed By: #### C DP, CP, LIP, TROPI, LIPRF, GLYHGB #### [address] [address] Rafter Cutting Machine Operator: Brandon Anaya MD Mucus Strands NOT REPORTED Normal NONE [facility] Comment on above: Performed By: #### C DP, CP, LIP, TROPI, LIPRF, GLYHGB #### [facility] Reissued [address] [place] [address] Rafter Cutting Machine Operator: Brandon Anaya MD Other Observations NOT REPORTED Normal [facility] Comment on above: Performed By: #### C DP, CP, LIP, TROPI, LIPRF, GLYHGB #### [facility] [address] [place] [address] Rafter Cutting Machine Operator: Brandon Anaya MD Trichomonas NOT REPORTED Normal NONE [facility] Comment on above: Performed By: #### C DP, CP, LIP, TROPI, LIPRF, GLYHGB #### [facility] Reissued [address] [place] [address] Rafter Cutting Machine Operator: Brandon Anaya MD Yeast LM Ql (Urine sed) NOT REPORTED Normal NONE [facility] Comment on above: Performed By: #### C DP, CP, LIP, TROPI, LIPRF, GLYHGB #### [facility] [place] [address] Rafter Cutting Machine Operator: Brandon Anaya MD XR ABDOMEN (KUB) (SINGLE [...] Naga Browning MD 10/09/[address] [facility] No evidence of bowel obstruction. [place] EXAMINATION: ONE SUP INE XRAY VIEW(S) OF THE ABDOMEN 10/09/2019 7:17 pm COMPARISON: None. HISTORY: ORDERING SYSTEM PROVIDED HISTORY: r/o SBO TECHNOLOGIST PROVIDED HISTORY: r/o SBO Reason for Exam: port Supine FINDINGS: Nonspecific, nonobstructive bowel gas pattern with paucity of bowel gas. Atherosclerotic calcifications. Retained contrast in the urinary bladder. No acute osseous abnormality. [place] Prieto, Mhpn Incoming Radiant Results From rVitae/G[facility]S ([facility])s - 10/09/2019 7:35 PM EDT EXAMINATION: ONE [...] IMPRESSION: No evidence of bowel obstruction. [facility] Aldosteroneon 07-02-2017 Aldosterone 4.8 ng/dL Normal [facility] Comment on above: Result Comment: (NOT E)INTERPRETIVE [...] gender-specific referenceintervals for this test in the Submittable Laboratory Test Directory([employer]).Performed by [facility],[address] [place] [id number] wnp.[employer], Nik Rosas MD, Lab. DirectorPerformed at [facility] [address] [place], [place] [id number] ([phone] Performed By: #### C ORTI ####[facility] [place] [address] #### AAANDRES, AREN ####[facility] [place] [address] Renin Activityon 07-02-2017 Renin Activity 0.1 ng/mL/hr Normal [facility] Comment on above: Result Comment: (NOT E)INTERPRETIVE INFORMATION: Renin ActivityAdult, Normal sodium diet: Supine ................. 0.2-1.6 ng/mL/hr Upright ................ 0.5-4.0 ng/mL/hrChildren, Normal sodium diet, Supine: [place] (1-7 days) ..... 2.0-35.0 ng/mL/hr Cord blood [...] activity when angiotensinogen isdecreased.See Compliance Statement D: [email or web address]/CSPerformed by [facility],[address] [place] [id number] puq.[employer], Nik Rosas MD, Lab. DirectorPerformed at [facility] [address] [facility].[place], [place] [id number] ([phone] Performed By: #### Domenico ORTI ####[facility] [place], [place] [id number] #### MARYAM, AKIN ####[facility] [facility].[place], [place] [id number] Basic Metab w/rfx MGon 06-29 (cont.) Normal [facility] Comment on above: Result Comment: Aver age GFR for 70 or more years old: 75 mL/min/1.73sq mChronic Kidney Disease: <60 mL/min/1.73sq mKidney failure: <15 mL/min/1.73sq meGFR calculated using average adult body mass. Additional eGFR calculator available at:http://www.[employer]/multiple_crcl_2012.htmPerformed at [facility] [address] [place] [address] Performed By: #### C DP, BMPX, TROPI ####[address] [address] Anion gap 10 mmol/L Normal 9-17 [facility] Comment on above: Performed By: #### C DP, BMPX, TROPI ####[address] [address] Calcium 9.1 mg/dL Normal 8.6-10.4 [facility] Comment on above: Performed By: #### C DP, BMPX, TROPI ####[address] [address] Chloride 106 mmol/L Normal 98-107 [facility] Comment on above: Performed By: #### C DP, BMPX, TROPI ####[address] [address] CO2 26 mmol/L Normal 20-31 [facility] Comment on above: Performed By: #### C DP, BMPX, TROPI ####[address] [address] Creatinine 0.66 mg/dL Normal 0.50-0.90 [facility] Comment on above: Performed By: #### C DP, BMPX, TROPI ####[address] [place] [address] eGFR (non-black) mL/min/{1.73_m2} Normal >60 [facility] Comment on above: Performed By: #### C DP, BMPX, TROPI ####[address] [address] Glucose mass conc 104 mg/dL High 70-99 [facility] Comment on above: Performed By: #### C DP, BMPX, TROPI ####[address] [address] Potassium molar conc 4.1 mmol/L Normal 3.7-5.3 [facility] Comment on above: Performed By: #### C DP, BMPX, TROPI ####[address] [address] Sodium 142 mmol/L Normal 135-144 [facility] Comment on above: Performed By: #### C DP, BMPX, TROPI ####[address] [address] Urea nitrogen 13 mg/dL Normal 8-23 [facility] Comment on above: Performed By: #### C DP, BMPX, TROPI ####[address] [address] BUN/CRE Ratio NOT REPORTED Normal 9-20 [facility] Comment on above: Performed By: #### C DP, BMPX, TROPI ####[address] [address] Staging: NOT REPORTED Normal [facility] Comment on above: Performed By: #### C DP, BMPX, TROPI ####[address] [address] CBC with Diffon 06-29-2017 Abs. Basophil 0.00 k/uL Normal 0.0-0.2 [facility] Comment on above: Result Comment: Perf ormed at [facility] [address] [place] [address] Performed By: #### C DP, BMPX, TROPI ####[facility] [place] [address] Abs.Neutrophil (Seg) 3.80 k/uL Normal 1.3-9.1 [facility] Comment on above: Performed By: #### C DP, BMPX, TROPI ####[address] [address] Basophils/100 WBC Auto (Bld) 1 % Normal 0-2 [facility] Comment on above: Performed By: #### C DP, BMPX, TROPI ####[facility] [place] [address] Eosinophils 0.20 10*3/uL Normal 0.0-0.4 [facility] Comment on above: Performed By: #### C DP, BMPX, TROPI ####[facility] [place] [address] Eosinophils/100 leukocytes 2 % Normal 0-4 [facility] Comment on above: Performed By: #### C DP, BMPX, TROPI ####[facility] [place] [address] Erythrocyte distribution width Auto Ratio (RBC) 14.5 % Normal 11.5-14.9 [facility] Comment on above: Performed By: #### C DP, BMPX, TROPI ####[address] [address] Erythrocytes (RBC) 4.36 10*6/uL Normal 4.0-5.2 [facility] Comment on above: Performed By: #### C DP, BMPX, TROPI ####[facility] [place] [address] Hematocrit (HCT) 38.3 % Normal 36-46 [facility] Comment on above: Performed By: #### C DP, BMPX, TROPI ####[facility] [place] [address] Hemoglobin mass conc (Bld) 12.9 g/dL Normal 12.0-16.0 [facility] Comment on above: Performed By: #### C DP, BMPX, TROPI ####[address] [address] Lymphocytes 2.20 10*3/uL Normal 1.0-4.8 [facility] Comment on above: Performed By: #### C DP, BMPX, TROPI ####[address] [address] Lymphocytes/100 leukocytes 32 % Normal 24-44 [facility] Comment on above: Performed By: #### C DP, BMPX, TROPI ####[facility] [place] [address] MCH 29.5 pg Normal 26-34 [facility] Comment on above: Performed By: #### C DP, BMPX, TROPI ####[address] [address] MCHC mass conc (RBC) 33.6 g/dL Normal 31-37 [facility] Comment on above: Performed By: #### C DP, BMPX, TROPI ####[facility] [place] [address] MCV 87.8 fL Normal 80-100 [facility] Comment on above: Performed By: #### C DP, BMPX, TROPI ####[facility] [place] [address].[place] [address] Monocytes 0.50 10*3/uL Normal 0.1-1.3 [facility] Comment on above: Performed By: #### C DP, BMPX, TROPI ####[facility] [place] [address] Monocytes/100 leukocytes 8 % High 1-7 [facility] Comment on above: Performed By: #### C DP, BMPX, TROPI ####[address] [address] Neutrophil (Seg) 57 % Normal 36-66 [facility] Comment on above: Performed By: #### C DP, BMPX, TROPI ####[address] [address] Platelet mean volume (PMV) 8.5 fL Normal 6.0-12.0 [facility] Comment on above: Performed By: #### C DP, BMPX, TROPI ####[address] [address] Platelets 219 10*3/uL Normal 150-450 [facility] Comment on above: Performed By: #### C DP, BMPX, TROPI ####[facility] [place] [address] WBC (Leukocytes) 6.7 10*3/uL Normal 3.5-11.0 [facility] Comment on above: Performed By: #### C DP, BMPX, TROPI ####[address] [address] Auto Diff Performed NOT REPORTED Normal [facility] Comment on above: Performed By: #### C DP, BMPX, TROPI ####[address] [place] [address] [facility] [place] [address] Erythrocyte morphology NOT REPORTED Normal [facility] Comment on above: Performed By: #### C DP, BMPX, TROPI ####[facility] [place] [address].[place] [address] Erythrocytes (RBC) NOT REPORTED Normal [facility] Comment on above: Performed By: #### C DP, BMPX, TROPI ####[address] [place] [address] Granulocytes/100 WBC (Bld) NOT REPORTED Normal 0.00-0.30 [facility] Comment on above: Performed By: #### C DP, BMPX, TROPI ####[address] [place] [address] Immature granulocytes #/vol (Bld) NOT REPORTED Normal 0 [facility] Comment on above: Performed By: #### C DP, BMPX, TROPI ####[address] [place] [address] Platelets NOT REPORTED Normal [facility] Comment on above: Performed By: #### C DP, BMPX, TROPI ####[address] [place] [address] WBC Morphology NOT REPORTED Normal [facility] Comment on above: Performed By: #### C DP, BMPX, TROPI ####[address] [place] [address] Troponinon 06-29-2017 Troponin I.cardiac mass conc Normal [facility] Comment on above: Result Comment: Refe rence Range: <0.03 Within reference range. 0.03-0.09 Possible myocardial damage.Repeat at appropriate intervals to rule out chronic elevation. >= 0.10 Indicative of myocardial damage.Patients with high levels of Biotin oral intake (i.e >5mg/day) may have falsely decreased Troponin T levels. Samples collected within 8 hours of biotin intake may require additional information for diagnosis.Performed at [address] [address] Performed By: #### C DP, BMPX, TROPI ####[address] [address] Troponin T.cardiac mass conc ug/L Normal <0.03 [facility] Comment on above: Result Comment: Trop onin T results cannot be compared to Troponin-I results. Performed By: #### C DP, BMPX, TROPI ####[address] [address] Troponin I.cardiac mass conc Normal [facility] Comment on above: Result Comment: Refe rence Range: <0.03 Within reference range. 0.03-0.09 Possible myocardial damage.Repeat at appropriate intervals to rule out chronic elevation. >= 0.10 Indicative of myocardial damage.Patients with high levels of Biotin oral intake (i.e >5mg/day) may have falsely decreased Troponin T levels. Samples collected within 8 hours of biotin intake may require additional information for diagnosis.Performed at [address] [address] Performed By: #### T ROPI ####[address] [address] Troponin T.cardiac mass conc ug/L Normal <0.03 [facility] Comment on above: Result Comment: Trop onin T results cannot be compared to Troponin-I results. Performed By: #### T ROPI ####[address] [address] XR CHEST (2 VW)on 06-29-2017 XR CHEST [...] by:FABIANA Oliverigned by:Zaire Dominguez MD//18Final result Normal [facility] Basic Metab w/rfx MGon 06-28 (cont.) Normal [facility] Comment on above: Result Comment: Aver age GFR for 70 or more years old: 75 mL/min/1.73sq mChronic Kidney Disease: <60 mL/min/1.73sq mKidney failure: <15 mL/min/1.73sq meGFR calculated using average adult body mass. Additional eGFR calculator available at:http://www.[employer]/multiple_crcl_2012.htmPerformed at [facility] [address] [place] [address] Performed By: #### C DP, BMPX ####[address] [place] [address] Anion gap 13 mmol/L Normal 9-17 [facility] Comment on above: Performed By: #### C DP, BMPX ####[facility] [place] [address] Calcium 8.7 mg/dL Normal 8.6-10.4 [facility] Comment on above: Performed By: #### C DP, BMPX ####[address] [place] [address] Chloride 106 mmol/L Normal 98-107 [facility] Comment on above: Performed By: #### C DP, BMPX ####[facility] [place] [address].[place] [address] CO2 22 mmol/L Normal 20-31 [facility] Comment on above: Performed By: #### C DP, BMPX ####[facility] [place] [address] Creatinine 0.53 mg/dL Normal 0.50-0.90 [facility] Comment on above: Performed By: #### C DP, BMPX ####[address] [address] eGFR (non-black) mL/min/{1.73_m2} Normal >60 [facility] Comment on above: Performed By: #### C DP, BMPX ####[address] [address] Glucose mass conc 168 mg/dL High 70-99 [facility] Comment on above: Performed By: #### C DP, BMPX ####[facility] [place] [address] Potassium molar conc 3.7 mmol/L Normal 3.7-5.3 [facility] Comment on above: Performed By: #### C DP, BMPX ####[facility] [place] [address] Sodium 141 mmol/L Normal 135-144 [facility] Comment on above: Performed By: #### C DP, BMPX ####[facility] [place] [address] Urea nitrogen 11 mg/dL Normal 8-23 [facility] Comment on above: Performed By: #### C DP, BMPX ####[facility] [facility] [place] [address] BUN/CRE Ratio NOT REPORTED Normal 9-20 [facility] Comment on above: Performed By: #### C DP, BMPX ####[facility] [place] [address] Staging: NOT REPORTED Normal [facility] Comment on above: Performed By: #### C DP, BMPX ####[facility] [place] [address] Basic Metabolic Profon 06-28 (cont.) Normal [facility] Comment on above: Result Comment: Aver age GFR for 70 or more years old: 75 mL/min/1.73sq mChronic Kidney Disease: <60 mL/min/1.73sq mKidney failure: <15 mL/min/1.73sq meGFR calculated using average adult body mass. Additional eGFR calculator available at:http://www.[employer]/multiple_crcl_2012.htmPerformed at [facility] [address] [place] [address] Performed By: #### C DP, BMP, TROPI, TSHX ####[facility] [place] [address] Anion gap 13 mmol/L Normal 9-17 [facility] Comment on above: Performed By: #### C DP, BMP, TROPI, TSHX ####[facility] [place] [address] Calcium 9.2 mg/dL Normal 8.6-10.4 [facility] Comment on above: Performed By: #### C DP, BMP, TROPI, TSHX ####[facility] [place] [address] Chloride 102 mmol/L Normal 98-107 [facility] Comment on above: Performed By: #### C DP, BMP, TROPI, TSHX ####[facility] [facility] [place] [address] CO2 26 mmol/L Normal 20-31 [facility] Comment on above: Performed By: #### C DP, BMP, TROPI, TSHX ####[facility] [place] [address] Creatinine 0.61 mg/dL Normal 0.50-0.90 [facility] Comment on above: Performed By: #### C DP, BMP, TROPI, TSHX ####[address] [address] eGFR (non-black) mL/min/{1.73_m2} Normal >60 [facility] Comment on above: Performed By: #### C DP, BMP, TROPI, TSHX ####[address] [address] Glucose mass conc 108 mg/dL High 70-99 [facility] Comment on above: Performed By: #### C DP, BMP, TROPI, TSHX ####[address] [address] Potassium molar conc 4.7 mmol/L Normal 3.7-5.3 [facility] Comment on above: Performed By: #### C DP, BMP, TROPI, TSHX ####[facility] [place] [address] Sodium 141 mmol/L Normal 135-144 [facility] Comment on above: Performed By: #### C DP, BMP, TROPI, TSHX ####[address] [address] Urea nitrogen 16 mg/dL Normal 8-23 [facility] Comment on above: Performed By: #### C DP, BMP, TROPI, TSHX ####[facility] [place] [address] BUN/CRE Ratio NOT REPORTED Normal 9-20 [facility] Comment on above: Performed By: #### C DP, BMP, TROPI, TSHX ####[facility] [place] [address] Staging: NOT REPORTED Normal [facility] Comment on above: Performed By: #### C DP, BMP, TROPI, TSHX ####[facility] [place] [address] CBC with Diffon 06-28-2017 Abs. Basophil 0.00 k/uL Normal 0.0-0.2 [facility] Comment on above: Result Comment: Perf ormed at [facility] [address] [place] [address] Performed By: #### C DP, BMPX ####[facility] [place] [address] Abs.Neutrophil (Seg) 5.50 k/uL Normal 1.3-9.1 [facility] Comment on above: Performed By: #### C DP, BMPX ####[address] [address] Basophils/100 WBC Auto (Bld) 1 % Normal 0-2 [facility] Comment on above: Performed By: #### C DP, BMPX ####[facility] [place] [address] Eosinophils 0.10 10*3/uL Normal 0.0-0.4 [facility] Comment on above: Performed By: #### C DP, BMPX ####[address] [address] Eosinophils/100 leukocytes 2 % Normal 0-4 [facility] Comment on above: Performed By: #### C DP, BMPX ####[facility] [place] [address] Erythrocyte distribution width Auto Ratio (RBC) 14.8 % Normal 11.5-14.9 [facility] Comment on above: Performed By: #### C DP, BMPX ####[facility] [place] [address] Erythrocytes (RBC) 4.47 10*6/uL Normal 4.0-5.2 [facility] Comment on above: Performed By: #### C DP, BMPX ####[facility] [place] [address] Hematocrit (HCT) 39.8 % Normal 36-46 [facility] Comment on above: Performed By: #### C DP, BMPX ####[facility] [place] [address] Hemoglobin mass conc (Bld) 13.3 g/dL Normal 12.0-16.0 [facility] Comment on above: Performed By: #### C DP, BMPX ####[facility] [facility] [place] [address] Lymphocytes 1.90 10*3/uL Normal 1.0-4.8 [facility] Comment on above: Performed By: #### C DP, BMPX ####[facility] [place] [address] Lymphocytes/100 leukocytes 23 % Low 24-44 [facility] Comment on above: Performed By: #### C DP, BMPX ####[facility] [place] [address] MCH 29.7 pg Normal 26-34 [facility] Comment on above: Performed By: #### C DP, BMPX ####[facility] [place] [address] MCHC mass conc (RBC) 33.3 g/dL Normal 31-37 [facility] Comment on above: Performed By: #### C DP, BMPX ####[facility] [place] [address] MCV 89.1 fL Normal 80-100 [facility] Comment on above: Performed By: #### C DP, BMPX ####[facility] [place] [address] Monocytes 0.50 10*3/uL Normal 0.1-1.3 [facility] Comment on above: Performed By: #### C DP, BMPX ####[address] [address] Monocytes/100 leukocytes 6 % Normal 1-7 [facility] Comment on above: Performed By: #### C DP, BMPX ####[address] [address] Neutrophil (Seg) 68 % High 36-66 [facility] Comment on above: Performed By: #### C DP, BMPX ####[address] [address] Platelet mean volume (PMV) 8.6 fL Normal 6.0-12.0 [facility] Comment on above: Performed By: #### C DP, BMPX ####[address] [address] Platelets 238 10*3/uL Normal 150-450 [facility] Comment on above: Performed By: #### C DP, BMPX ####[address] [address] WBC (Leukocytes) 8.0 10*3/uL Normal 3.5-11.0 [facility] Comment on above: Performed By: #### C DP, BMPX ####[facility] [place] [address] Auto Diff Performed NOT REPORTED Normal [facility] Comment on above: Performed By: #### C DP, BMPX ####[facility] [place] [address] Erythrocyte morphology NOT REPORTED Normal [facility] Comment on above: Performed By: #### C DP, BMPX ####[facility] [place] [address] [place] [address] Erythrocytes (RBC) NOT REPORTED Normal [facility] Comment on above: Performed By: #### C DP, BMPX ####[facility] [place] [address].[place] [address] Granulocytes/100 WBC (Bld) NOT REPORTED Normal 0.00-0.30 [facility] Comment on above: Performed By: #### C DP, BMPX ####[address] [address] Immature granulocytes #/vol (Bld) NOT REPORTED Normal 0 [facility] Comment on above: Performed By: #### C DP, BMPX ####[facility] [place] [address].[place] [address] Platelets NOT REPORTED Normal [facility] Comment on above: Performed By: #### C DP, BMPX ####[address] [address] WBC Morphology NOT REPORTED Normal [facility] Comment on above: Performed By: #### C DP, BMPX ####[address] [place] [address] Abs. Basophil 0.10 k/uL Normal 0.0-0.2 [facility] Comment on above: Result Comment: Perf ormed at [facility] [address] [place] [address] Performed By: #### C DP, BMP, TROPI, TSHX ####[facility] [facility] [place] [address] Abs.Neutrophil (Seg) 4.20 k/uL Normal 1.3-9.1 [facility] Comment on above: Performed By: #### C DP, BMP, TROPI, TSHX ####[facility] [place] [address].[place] [address] Basophils/100 WBC Auto (Bld) 1 % Normal 0-2 [facility] Comment on above: Performed By: #### C DP, BMP, TROPI, TSHX ####[facility] [place] [address] Eosinophils 0.20 10*3/uL Normal 0.0-0.4 [facility] Comment on above: Performed By: #### C DP, BMP, TROPI, TSHX ####[facility] [place] [address].[place] [address] Eosinophils/100 leukocytes 2 % Normal 0-4 [facility] Comment on above: Performed By: #### C DP, BMP, TROPI, TSHX ####[facility] [place] [address] Erythrocyte distribution width Auto Ratio (RBC) 14.7 % Normal 11.5-14.9 [facility] Comment on above: Performed By: #### C DP, BMP, TROPI, TSHX ####[facility] [place] [address] Erythrocytes (RBC) 4.38 10*6/uL Normal 4.0-5.2 [facility] Comment on above: Performed By: #### C DP, BMP, TROPI, TSHX ####[address] [address] Hematocrit (HCT) 38.7 % Normal 36-46 [facility] Comment on above: Performed By: #### C DP, BMP, TROPI, TSHX ####[address] [address] Hemoglobin mass conc (Bld) 12.9 g/dL Normal 12.0-16.0 [facility] Comment on above: Performed By: #### C DP, BMP, TROPI, TSHX ####[address] [address] Lymphocytes 2.60 10*3/uL Normal 1.0-4.8 [facility] Comment on above: Performed By: #### C DP, BMP, TROPI, TSHX ####[address] [address] Lymphocytes/100 leukocytes 34 % Normal 24-44 [facility] Comment on above: Performed By: #### C DP, BMP, TROPI, TSHX ####[address] [address] MCH 29.6 pg Normal 26-34 [facility] Comment on above: Performed By: #### C DP, BMP, TROPI, TSHX ####[address] [address] MCHC mass conc (RBC) 33.4 g/dL Normal 31-37 [facility] Comment on above: Performed By: #### C DP, BMP, TROPI, TSHX ####[address] [address] MCV 88.4 fL Normal 80-100 [facility] Comment on above: Performed By: #### C DP, BMP, TROPI, TSHX ####[facility] [place] [address].[place] [address] Monocytes 0.60 10*3/uL Normal 0.1-1.3 [facility] Comment on above: Performed By: #### C DP, BMP, TROPI, TSHX ####[address] [address] Monocytes/100 leukocytes 8 % High 1-7 [facility] Comment on above: Performed By: #### C DP, BMP, TROPI, TSHX ####[address] [address] Neutrophil (Seg) 55 % Normal 36-66 [facility] Comment on above: Performed By: #### C DP, BMP, TROPI, TSHX ####[facility] [place] [address] Platelet mean volume (PMV) 8.6 fL Normal 6.0-12.0 [facility] Comment on above: Performed By: #### C DP, BMP, TROPI, TSHX ####[facility] [place] [address] Platelets 229 10*3/uL Normal 150-450 [facility] Comment on above: Performed By: #### C DP, BMP, TROPI, TSHX ####[facility] [place] [address] WBC (Leukocytes) 7.7 10*3/uL Normal 3.5-11.0 [facility] Comment on above: Performed By: #### C DP, BMP, TROPI, TSHX ####[address] [place] [address] Auto Diff Performed NOT REPORTED Normal [facility] Comment on above: Performed By: #### C DP, BMP, TROPI, TSHX ####[facility] [facility] [place] [address] Erythrocyte morphology NOT REPORTED Normal [facility] Comment on above: Performed By: #### C DP, BMP, TROPI, TSHX ####[facility] [place] [address].[place] [address] Erythrocytes (RBC) NOT REPORTED Normal [facility] Comment on above: Performed By: #### C DP, BMP, TROPI, TSHX ####[facility] [place] [address].[place] [address] Granulocytes/100 WBC (Bld) NOT REPORTED Normal 0.00-0.30 [facility] Comment on above: Performed By: #### C DP, BMP, TROPI, TSHX ####[facility] [place] [address] Immature granulocytes #/vol (Bld) NOT REPORTED Normal 0 [facility] Comment on above: Performed By: #### C DP, BMP, TROPI, TSHX ####[facility] [place] [address].[place] [address] Platelets NOT REPORTED Normal [facility] Comment on above: Performed By: #### C DP, BMP, TROPI, TSHX ####[facility] [place] [address].[place] [address] WBC Morphology NOT REPORTED Normal [facility] Comment on above: Performed By: #### C DP, BMP, TROPI, TSHX ####[facility] [place] [address] Cortisolon 06-28-2017 Cortisol 4.7 ug/dL Normal 2.7-18.4 [facility] Comment on above: Result Comment: Lukasz isol Reference Range: AM 6.0-18.4 PM 2.7-10.5Performed at [facility] [address] [place] [address] Performed By: #### C ORTI ####[address] [address] #### AALD, AREN ####[address] [address] Collection Info. NOT REPORTED Normal [facility] Comment on above: Performed By: #### C ORTI ####[address] [address] #### AALD, AREN ####[address] [place] [address] Renin Activityon 06-28-2017 Comment: NOT REPORTED Normal [facility] Comment on above: Performed By: #### C ORTI ####[address] [address] #### AALD, AREN ####[address] [address] TSH w/reflex to FT4on 2017 Thyroid stimulating hormone (TSH) 2.65 m[IU]/L Normal 0.30-5.00 [facility] Comment on above: Result Comment: Perf ormed at [facility] [address] [place] [address] Performed By: #### C DP, BMP, TROPI, TSHX ####[facility] [place] [address] Troponinon 06-28-2017 Troponin I.cardiac mass conc Normal [facility] Comment on above: Result Comment: Refe rence Range: <0.03 Within reference range. 0.03-0.09 Possible myocardial damage.Repeat at appropriate intervals to rule out chronic elevation. >= 0.10 Indicative of myocardial damage.Patients with high levels of Biotin oral intake (i.e >5mg/day) may have falsely decreased Troponin T levels. Samples collected within 8 hours of biotin intake may require additional information for diagnosis.Performed at [facility] [address] [place] [address] Performed By: #### T ROPI ####[address] [address] Troponin T.cardiac mass conc ug/L Normal <0.03 [facility] Comment on above: Result Comment: Trop onin T results cannot be compared to Troponin-I results. Performed By: #### T ROPI ####[address] [place] [address] Troponin I.cardiac mass conc Normal [facility] Comment on above: Result Comment: Refe rence Range: <0.03 Within reference range. 0.03-0.09 Possible myocardial damage.Repeat at appropriate intervals to rule out chronic elevation. >= 0.10 Indicative of myocardial damage.Patients with high levels of Biotin oral intake (i.e >5mg/day) may have falsely decreased Troponin T levels. Samples collected within 8 hours of biotin intake may require additional information for diagnosis.Performed at [address] [place] [address] Performed By: #### T ROPI ####[address] [place] [address] Troponin T.cardiac mass conc ug/L Normal <0.03 [facility] Comment on above: Result Comment: Trop onin T results cannot be compared to Troponin-I results. Performed By: #### T ROPI ####[address] [address] Troponin I.cardiac mass conc Normal [facility] Comment on above: Result Comment: Refe rence Range: <0.03 Within reference range. 0.03-0.09 Possible myocardial damage.Repeat at appropriate intervals to rule out chronic elevation. >= 0.10 Indicative of myocardial damage.Patients with high levels of Biotin oral intake (i.e >5mg/day) may have falsely decreased Troponin T levels. Samples collected within 8 hours of biotin intake may require additional information for diagnosis.Performed at [address] [address] Performed By: #### C DP, BMP, TROPI, TSHX ####[address] [address] Troponin T.cardiac mass conc ug/L Normal <0.03 [facility] Comment on above: Result Comment: Trop onin T results cannot be compared to Troponin-I results. Performed By: #### C DP, BMP, TROPI, TSHX ####[address] [address] UA w/Reflex Cultureon 2017 Acetaminophen mass conc Negative Normal NEG [facility] Comment on above: Performed By: #### U AX ####[address] [address] Bilirubin (direct) Negative Normal NEG [facility] Comment on above: Performed By: #### U AX ####[address] [address] Comment Microscopic exam not performed based on chemical results unless requested in Normal [facility] Comment on above: Result Comment: orig inal order.Performed at [address] [address] Performed By: #### U AX ####[address] [address] Hemoglobin mass conc (Bld) Negative Normal NEG [facility] Comment on above: Performed By: #### U AX ####[facility] [place] [address] [place] [address] Nitrite,Ur Negative Normal NEG [facility] Comment on above: Performed By: #### U AX ####[facility] [place] [address], [place] [address] Turbidity CLEAR Normal CLEAR [facility] Comment on above: Performed By: #### U AX ####[facility] [place] [address] [place] [address] Urine, color YELLOW Normal YEL [facility] Comment on above: Performed By: #### U AX ####[address] [place] [address] Urine, glucose presence Negative Normal NEG [facility] Comment on above: Performed By: #### U AX ####[address] [place] [address] Urine, leukocyte esterase presence Negative Normal NEG [facility] Comment on above: Performed By: #### U AX ####[address] [place] [address] Urine, pH 5.5 [pH] Normal 5.0-8.0 [facility] Comment on above: Performed By: #### U AX ####[address] [place] [address] Urine, protein presence Negative Normal NEG [facility] Comment on above: Performed By: #### U AX ####[address] [place] [address] Urine, specific gravity 1.011 Normal 1.000-1.030 [facility] Comment on above: Performed By: #### U AX ####[address] [place] [address] Urobilinogen,Ur Normal Normal NORM [facility] Comment on above: Performed By: #### U AX ####[facility] [place] [address] Vital Signs Date Time Vital Sign Value Performing Clinician Facility 04-08-2023 10:25-0500 Body height 162.56 cm MD Adina Bunch Work Phone: [facility] 04-08-2023 10:25-0500 Body mass index (BMI) [Ratio] 26.7 kg/m2 MD Adina Bunch Work Phone: [facility] 04-08-2023 10:25-0500 Body weight 70.76 kg MD Adina Bunch Work Phone: [facility] 10-16-2019 15:45-0400 BP Diastolic 64 mm[Hg] [place], [place] 10-16-2019 15:45-0400 BP Systolic 154 mm[Hg] [place] 10-16-2019 08:25-0400 Body Temperature 98.01 [degF] [place], [place] 10-16-2019 08:25-0400 Pulse (Heart Rate) 70 /min [place], [place] 10-16-2019 08:25-0400 Pulse Oximetry 97 % [place] 10-16-2019 08:25-0400 Respiratory Rate 20 /min [place] 10-16-2019 06:15-0400 BMI (Body Mass Index) 25.51 kg/m2 [place] 10-16-2019 06:15-0400 Body weight 67.4 kg [place] 10-15-2019 15:22-0400 Height 162.6 cm [place] 10-13-2019 16:07-0400 Respiratory rate NOT REPORTED DUGLAS [facility] Comment on above: Performed By: #### CDP, CP, LIP, TROPI, LIPRF, GLYHGB #### [email or web address] [id number] Rafter Cutting Machine Operator: Brandon Anaya MD 10-13-2019 14:24-0400 Respiratory rate NOT REPORTED Yoon [facility] [place] Encounters Encounter Date Encounter Type Care Provider Facility Start: 04-24-2023 End: 04-24-2023 ambulatory Anju Lees Facility:[facility] Start: 04-17-2023 End: 04-17-2023 ambulatory CURRY A PETITTI Not Available Start: 04-17-2023 End: 04-17-2023 ambulatory MD Adina uBnch Work Phone: [facility] Work Phone: Start: 04-17-2023 End: 04-17-2023 Patient encounter procedure MD Adina Bunch Work Phone: [facility] Work Phone: Start: 04-08-2023 End: 04-08-2023 ambulatory MD Adina Bunch Work Phone: [facility] Work Phone: Start: 04-08-2023 End: 04-08-2023 Patient encounter procedure MD Adina Bunch Work Phone: [facility] Work Phone: Start: 04-08-2023 End: 04-08-2023 ambulatory MD Adina Bunch Work Phone: [facility] Work Phone: Start: 04-08-2023 End: 04-08-2023 Patient encounter procedure MD Adina Bunch Work Phone: [facility] Start: 02-13-2023 End: 02-13-2023 ambulatory DENISHA [...] and management of inpatient DUGLAS S JUDIE [facility] Start: 10-09-2019 End: 10-16-2019 Evaluation and management of inpatient Yoon Barnhart Rogelio Work Phone: [facility] Comment on above: Abdominal aortic ane urysm (AAA) without rupture (HCC) (Primary Dx); Acute low back pain, unspecified back pain laterality, unspecified whether sciatica present; Vertigo; Nausea and vomiting, intractability of vomiting not specified, unspecified vomiting type; Hypertensive urgency Start: 06-27-2017 End: 06-29-2017 Evaluation and management of inpatient ADINA M Evonne [facility] Procedures Date Procedure Procedure Detail Performing Clinician [...] d ev cleared fda spec home use UDGLAS JUDIE Start: 10-15-2019 STRAIGHT CATH DUGLAS RA [...] 10-13-2019 Glucose blood reagen t strip DUGLAS JUIDE Start: 10-13-2019 Glucose blood reagen t strip [...] DUGLAS JUDIE Start: 10-09-2019 IP CONSULT TO WALL TAPER AL MEDICINE DUGLAS JUDIE Start: 10-09-2019 Ct [...] HO Y Start: 06-28-2017 IP CONSULT TO WALL TAPER AL MEDICINE ADINA HOY Start: 06-28-2017 EKG [...] right hand XR hand RT min 3V* [facility] Start: 04-08-2023 XR Hand - right GE 3 Views [facility] Start: 10-14-2020 Creatinine measurement Creatinine mo nitoring [place], [place] Start: 10-14-2020 Potassium monitoring Potassium monit oring [place] Start: 10-26-2019 Influenza vaccination Flu vaccine (# 1) [place] Start: 08-16-2018 Annual Wellness Visi t (AWV) Annual Wellness Visit (AWV) [place] Start: 05-23-2008 Pneumococcal 65+ yea rs Vaccine (1 of 1 - PPSV23) Pneumococcal 65+ years Vaccine (1 of 1 - PPSV23) [place] Start: 05-23-1998 Screening for osteoporosis DEXA (modify frequency per FRAX score) [place] Start: 05-23-1993 Shingles Vaccine (1 of 2) Shingles Vaccine (1 of 2) [place] Start: 05-23-1962 DTaP/Tdap/Td vaccine (1 - Tdap) DTaP/Tdap/Td vaccine (1 - Tdap) [place] End: 10-11-2019 ALBUMIN, CSF ALBUMIN, CSF Lab Routine One Time for 1 Occurrences starting 10/11/2019 until 10/11/2019 [place] Comment on above: One Time for 1 Occur rences starting 10/11/2019 until 10/11/2019 Basic Metabolic Pane l w/ Reflex to MG Basic Metabolic Panel w/ Reflex to MG Lab Routine Daily until discontinued starting 10/10/2019, 7 completed [place] Comment on above: Daily until disconti nued starting 10/10/2019, 7 completed CBC auto differential CBC auto d ifferential Lab Routine Daily until discontinued starting 10/10/2019, 7 completed [place] Comment on above: Daily until disconti nued starting 10/10/2019, 7 completed Culture, Blood 1 [place] End: 10-16-2019 Culture, Urine Culture, Urine Microbiology Routine One Time for 1 Occurrences starting 10/16/2019 until 10/16/2019 [place] Comment on above: One Time for 1 Occur rences starting 10/16/2019 until 10/16/2019 Culture, Urine Culture, Urine Microbiology [employer] Label Print 10/16/2019 1:08 PM EDT [place] Nebulizer therapy HHN Treatment Respiratory Care Routine As Needed until discontinued starting 10/11/2019 [place] Comment on above: As Needed until disc ontinued starting 10/11/2019 Oxygen therapy [[facility] Data Set] Initiate Oxygen Therapy Protocol Respiratory Care Routine Daily until discontinued starting 10/09/2019 [place] Comment on above: Daily until disconti nued starting 10/09/2019 POCT [place] [place] Comment on above: As Needed until disc ontinued starting 10/09/2019 4X Daily (AC & HS) u ntil discontinued starting 10/09/2019 Immunizations Immunization Date Immunization Notes Care Provider [facility] 12-20-2020 COVID-19 mRNA-1273 (Ramila) MD Adina Bunch Work Phone: [facility] 04-21-2020 COVID-19 mRNA-1273 (Ramila) MD Adina Bunch Work Phone: [facility] 03-24-2020 COVID-19 mRNA-1273 (Ramila) MD Adina Bunch Work Phone: [facility] Payers Date Payer Category Payer Medicare [id number] 2014 Medicare [id number] 1961 Medicare [id number] 1959 Medicare [id number] 1961 Self-pay 1945 Unknown [id number] 2.16.8 [id number] 1945 Unknown [id number] 2.16.84 [id number] 1943 Unknown [id number] 2.16.84 0.1.182507.3.579.2.593 1943 Unknown [id number] 2.16.84 0.1.443532.3.579.2.593 1943 Unknown [id number] 2.16.84 0.1.132417.3.579.2.593 1943 Unknown [id number] 2.16.84 0.1.318520.3.579.2.593 1943 Unknown [id number] 2.16.84 0.1.272452.3.579.2.1259 1943 Unknown [id number] 2.16.840 .1.618985.3.579.2.1259 1943 Unknown [id number] 2.16.840 .[id number] 1943 Unknown [id number] 2.16.840. 1.150715.3.579.2.1259 1943 Unknown [id number] 2.16.840. 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 Clinical Note 06-15-2020 Note Date & [...] you have a fever over [address] [facility] History and physical note 05-18-2020 Note Date & Type Note Facility 05-18-2020 Note [id number] 2#1.00CD:[address] [facility] Clinical Note 05-18-2020 Note Date & [...] you have a fever over [address] [facility] Evaluation note Note Date & Type Note Facility Evaluation note Diagnosis Onset Date Trigger finger, right middle finger acute Trigger finger, right ring finger acute [facility] Work Phone: Summary Purpose Family History No Family History Records Found Relationship Condition Age at Onset Recorded Date/T janki father Malignant neoplasm of lung Unknown Not Specified Myocardial infarction Unknown Advance Directives No Advanced Directives Records FoundDocuments on File Type Date Recorded Patient Clinical Pharmacist Expl anation ACP-Advance Directive ACP-Power of Floral Clerk Latest Code Status on File Code Status [...] Contact Information Primary Emergency Contact: Deep Maynard [facility] Relation: Spouse Past Surgical History: Past Surgical [...] Assisted Dressing Assisted Toileting Assisted Feeding Assisted Clinical Nutrition Manager Independent Med Delivery whole Wound Care Documentation [...] NOT a DME order): n/a Other Treatments: alf, home health aide services Patient's personal belongings (please select all that are sent with patient): patient has all belongings RN SIGNATURE: CASE MANAGEMENT/SOCIAL WORK SECTION Inpatient Status Date: 10-09-2019 Readmission Risk Assessment Score: Readmission Risk Risk of Unplanned Readmission: 12 Discharging to Facility/ Agency Name: [facility] Address: Phone: Fax: Dialysis Facility (if applicable) Name: Address: Dialysis Schedule: Phone: Fax: Stylist Apprentice/Fruit Room Hand signature: EDT ICIAN SECTION Prognosis: Fair Condition [...] size monitoring with PCP F/u urologist at [facility] in 1 week for lowe and void trial Take docusate 100 mg daily and miralax 17 g daily. documented in this encounter History of Present Illness * Tami Ni RN - 10/16/2019 5:51 PM EDT Structures Mechanic discharged patient @ 1745 by wheelchair off unit with . Structures Mechanic went over all discharge paperwork and patient [...] who was admitted as a transfer from [facility] 10/09/2019 where she presented with gradually [...] to ensure the accuracy of this automated instrument assembly supervisor, some errors in instrument assembly supervisor may have occurred. * Michelle Pelletier MD - 10/16/2019 11:07 AM EDT [facility] Internal Medicine Teaching Residency Program Inpatient Daily Progress Note Patient: Zachary Maynard Date of : 1945 Acct: [id number] Room: Admit date: 10/09/2019 Today's date: 10/16/19 [...] of COPD, primary hypertension was transferred from [facility] for management of infrarenal abdominal aortic aneurysm and for vascular consultation. States she started having lower back pain since . Describes the pain as constant, sharp, 10out of 10 in intensity associated with nausea. Patient went to the emergency department at [facility] to have hypertensive emergency with systolics above 200 and d-dimer was elevated. CT abdomen was done which showed 3.5 infrarenal aortic aneurysm, started on Cardene drip and pain medications we re given. Patient was transferred to [facility] found to be hypoxic in upper 80s, [...] Q4H PRN hydrALAZINE, 10 mg, Q6H PRN azynpxbvwl-xaotmixlgyxhf-xftjhahg, 1 tablet, Q4H PRN sodium chloride flush, [...] Dwayne Hanson MD Internal Medicine Resident, PGY-1 [facility]; [place], [place] 10/16/2019, 11:07 AM I have discussed [...] 9:31 AM EDT [facility] - Progress Note Today's Date and Time: [...] culture. Medical Decision Making/Summary/Discussion:10/16/2019 Infection Control Recommendations [facility] Precautions Antimicrobial Stewardship Recommendations Discontinuation of therapy [...] of . INITIAL HISTORY: Patient transferred from [facility] on 10-09-19 because of low back pain and findings of an infrarenal abdominal aortic aneurysm. Developed onset of back pain on 10-07-19, associated with nausea. She was evaluated at [facility] and found to have a hypertensive emergency with systolic pressures over [address] showed a 3.5 cm infrarenal aortic aneurysm. Her BP was controlled with Cardene drip and the patient was transferred to [facility]. At [facility] patient had signs of hypoxia, and [...] file Gets together: Not on file Attends shinto service: Not on file Active member of [...] Initial FINDINGS: CTA NECK: AORTIC ARCH/ARCH VESSELS: Cqwd-or-gnarhiwt atherosclerotic plaque at the arch arch and [...] midline shift. No extra-axial fluid collection. The slameron-white differentiation is maintained. Impression 1. No acute [...] No acute pulmonary process. Emphysema. Medical Decision Tfiybf-Asdunwvk-Ytmiv: 10/15/2019 12:10 AM - Blanco Moreau Incoming Lab Results From [facility] Specimen Information: Blood Component Collected Lab Specimen Description 10/12/2019 2:17 PM [facility] .BLOOD Special Requests 10/12/2019 2:17 PM [facility] back lt arm 3ml Culture 10/12/2019 2:17 PM [facility] NO GROWTH 3 DAYS Medical Decision Making-Other: Note: Labs, medications, radiologic studies were reviewed with personal review of films Large amounts of data were reviewed Discussed with nursing Staff, cyber ops planner Infection Control and Prevention measures reviewed [...] Patel RN - 10/16/2019 6:15 AM EDT Structures Mechanic bladder scanned patient and bladder scan shows 554 mL, senior medical writer straight cath patient and was only [...] loss Fluid Accumulation: 1 - Mild Extremities Performing Arts Technicians Strength: Not Performed Estimated Daily Nutrient Needs: Energy (kcal): 1.3-1.4 ~> 8628-4402 kcals/d; Weight Used for Energy Requirements: Admission Protein (g): 1.2-1.4 ~> 65-76 gms/d; Weight Used for Protein Requirements: [place] Nutrition Related Findings: Na 131 Wounds: None Current Nutrition Therapies: DIET GENERAL; Anthropometric Measures: Height: 5' 4 (162.6 cm) Current Body Weight: 154 lb (69.9 kg) Admission Body Weight: 154 lb (69.9 kg) Usual Body Weight: 160 lb (72.6 kg)(per pt's ) [place] Body Weight: 120 lbs; % [place] Body Weight 128.3 % BMI: 26.4 BMI [...] Discharge Planning: Too soon to determine Contact: [phone] * Dwayne Hanson MD - 10/15/2019 3:09 PM EDT [facility] Teaching Residency Program Inpatient Daily Progress Note Patient: Zachary Maynard Date of : 1945 Acct: [id number] Room: Admit date: 10/09/2019 Today's date: 10/15/19 [...] of COPD, primary hypertension was transferred from [facility] for management of infrarenal abdominal aortic aneurysm and for vascular consultation. States she started having lower back pain since . Describes the pain as constant, sharp, 10out of 10 in intensity associated with nausea. Patient went to the emergency department at [facility] found to have hypertensive emergency with systolics above 200 and d-dimer was elevated. CT abdomenwas done which showed 3.5 infrarenal aortic aneurysm, started on Cardene drip and pain medications were given. Patient was transferred to [facility] found to be hypoxic in upper 80s, [...] Q4H PRN hydrALAZINE, 10 mg, Q6H PRN doaakcuxvt-lmaqtxpyqkuph-cuhphhdq, 1 tablet, Q4H PRN sodium chloride flush, [...] Dwayne Hanson MD Internal Medicine Resident, PGY-1 [facility]; [place], [place] 10/15/2019, 3:09 PM Associated attestation - [...] - 10/15/2019 3:09 PM EDT Occupational Therapy [facility] Occupational Therapy Not Seen Note DATE: [...] appropriate. Winifred Foster, OT/S * Sho Tierney SALES REPRESENTATIVE [employer] - 10/15/2019 1:55 PM EDT Physical Therapy Facility/Department: [facility] 2 Daily Treatment Note NAME: Zachary [...] place: No Restraints: all rail up when SALES REPRESENTATIVE [employer] left, okay with pt Therapy Time Individual Concurrent Group Co-treatment Time In 1326 Time Out 1342 Minutes 16 Timed Code Treatment Minutes: 16 Minutes Sho Tierney PTA * Willie Garcia, TAPPING MACHINE OPERATOR - [employer] KILN - 10/15/2019 10:38 AM EDT Neurology Nurse [...] who was admitted as a transfer from [facility] 10/09/2019 where she presented with gradually [...] to ensure the accuracy of this automated instrument assembly supervisor, some errors in instrument assembly supervisor may have occurred. * Sailaja Durán RN - 10/15/2019 9:00 AM EDT Pt straight cathed for 850 cc clear yellow urine. Tolerated well. Will continue to monitor. * Alfonso Kendrick MD - 10/15/2019 8:38 AM EDT [facility] - Progress Note Today's Date and Time: [...] antibiotics Medical Decision Making/Summary/Discussion:10/15/2019 Infection Control Recommendations [facility] Precautions Antimicrobial Stewardship Recommendations Discontinuation of therapy [...] of . INITIAL HISTORY: Patient transferred from [facility] on 10-09-19 because of low back pain and findings of an infrarenal abdominal aortic aneurysm. Developed onset of back pain on 10-07-19, associated with nausea. She was evaluated at [facility] and found to have a hypertensive emergency with systolic pressures over [address] showed a 3.5 cm infrarenal aortic aneurysm. Her BP was controlled with Cardene drip and the patient was transferred to [facility]. At [facility] patient had signs of hypoxia, and [...] file Gets together: Not on file Attends shinto service: Not on file Active member of [...] Initial FINDINGS: CTA NECK: AORTIC ARCH/ARCH VESSELS: Wwne-cc-iorggdiq atherosclerotic plaque at the arch arch and [...] No acute pulmonary process. Emphysema. Medical Decision Tmhide-Sfakwqvh-Xqrdm: 10/15/2019 12:10 AM - PrietoBlanco Incoming Lab Results From [facility] Specimen Information: Blood Component Collected Lab Specimen Description 10/12/2019 2:17 PM [facility] .BLOOD Special Requests 10/12/2019 2:17 PM [facility] back lt arm 3ml Culture 10/12/2019 2:17 PM [facility] NO GROWTH 3 DAYS Medical Decision Making-Other: Note: Labs, medications, radiologic studies were reviewed with personal review of films Large amounts of data were reviewed Discussed with nursing Staff, cyber ops planner Infection Control and Prevention measures reviewed [...] Hanson MD - 10/14/2019 1:29 PM EDT [facility] Teaching Residency Program Inpatient Daily Progress Note Patient: Zachary Maynard Date of : 1945 Acct: [id number] Room: Admit date: 10/09/2019 Today's date: 10/14/19 [...] of COPD, primary hypertension was transferred from [facility] for management of infrarenal abdominal aortic aneurysm and for vascular consultation. States she started having lower back pain since . Describes the pain as constant, sharp, 10out of 10 in intensity associated with nausea. Patient went to the emergency department at [facility] to have hypertensive emergency with systolics above 200 and d-dimer was elevated. CT abdomen was done which showed 3.5 infrarenal aortic aneurysm, started on Cardene drip and pain medications we re given. Patient was transferred to [facility] found to be hypoxic in upper 80s, [...] Q4H PRN hydrALAZINE, 10 mg, Q6H PRN zgrubfbnuf-drwfmqqjtfjdg-fwunfuxf, 1 tablet, Q4H PRN sodium chloride flush, [...] Dwayne Hanson MD Internal Medicine Resident, PGY-1 [facility]; [place], [place] 10/14/2019, 1:29 PM Associated attestation - [...] by Michelle Pelletier MD * Jose Willie, TAPPING MACHINE OPERATOR - [employer] KILN - 10/14/2019 11:22 AM EDT Neurology Nurse [...] who was [facility] [facility] where she presented with gradually [...] to ensure the accuracy of this automated instrument assembly supervisor, some errors in instrument assembly supervisor may have occurred. * Alfonso Kendrick MD - 10/14/2019 10:10 AM EDT [facility] - Progress Note Today's Date and Time: [...] antibiotics Medical Decision Making/Summary/Discussion:10/14/2019 Infection Control Recommendations [facility] Precautions Antimicrobial Stewardship Recommendations Discontinuation of therapy [...] of . INITIAL HISTORY: Patient transferred from [facility] on 10-09-19 because of low back pain and findings of an infrarenal abdominal aortic aneurysm. Developed onset of back pain on 10-07-19, associated with nausea. She was evaluated at [facility] and found to have a hypertensive emergency with systolic pressures over [address] showed a 3.5 cm infrarenal aortic aneurysm. Her BP was controlled with Cardene drip and the patient was transferred to [facility]. At [facility] patient had signs of hypoxia, and [...] file Gets together: Not on file Attends shinto service: Not on file Active member of [...] Initial FINDINGS: CTA NECK: AORTIC ARCH/ARCH VESSELS: Pior-tg-grrzabwx atherosclerotic plaque at the arch arch and [...] No acute pulmonary process. Emphysema. Medical Decision Anvdsc-Qweadbcs-Jsmhk: Medical Decision Making-Other: Note: Labs, medications, radiologic studies were reviewed with personal review of films Large amounts of data were reviewed Discussed with nursing Staff, cyber ops planner Infection Control and Prevention measures reviewed [...] Ferris RN - 10/13/2019 10:40 PM EDT Structures Mechanic contacted internal med regarding pt complaining of lower abdominal pain. States she has to void but is unable to. Bladder scanned her just now and >999. New order for one time straight cath. Straight cath completed at 2315. 900ml clear, yellow urine out with 63ml residual. Will continue to monitor. 0430- Structures Mechanic contacted internal med regarding pt unable to void. Bladder scan shows 490. One time straight cath order placed at 0610. New bladder scan shows 571. Cath completed at 0645. 550ml clear, yellow urine out with 16ml residual. Will continue to monitor. Internal med also made aware that pt has not had bowel movement since admission. Mirilax administered. Bowel sounds active. * Linda Adhikari, SALES REPRESENTATIVE [employer] - 10/13/2019 4:16 PM EDT Physical Therapy Facility/Department: [facility] 2 Daily Treatment Note NAME: Zachary [...] Hanson MD - 10/13/2019 9:30 AM EDT [facility] Internal Medicine Teaching Residency Program Inpatient Daily Progress Note Patient: Zachary Maynard Date of : 1945 Acct: [id number] Room: Admit date: 10/09/2019 Today's date: 10/13/19 Number of days in the hospital: 4 SUBJECTIVE Admitting Diagnosis: Aneurysm of infrarenal abdominal aorta (HCC) CC: Midline Lower Back Pain Pt examined at bedside. Chart & results reviewed. BP increased overnight - Human Resources Consultant Branch Office Administrator gave Norvasc and started IV Hydralazine early [...] of COPD, primary hypertension was transferred from [facility] for management of infrarenal abdominal aortic aneurysm and for vascular consultation. States she started having lower back pain since . Describes the pain as constant, sharp, 10out of 10 in intensity associated with nausea. Patient went to the emergency department at [facility] to have hypertensive emergency with systolics above 200 and d-dimer was elevated. CT abdomen was done which showed 3.5 infrarenal aortic aneurysm, started on Cardene drip and pain medications we re given. Patient was transferred to [facility] found to be hypoxic in upper 80s, [...] Q4H PRN hydrALAZINE, 10 mg, Q6H PRN dfofwmuwsy-cbapwvocnqdsp-bhlzvwyk, 1 tablet, Q4H PRN sodium chloride flush, [...] R Valentin, MD Internal Medicine Resident, PGY-1 [facility]; [place], [place] 10/13/2019, 9:31 AM Associated attestation - [...] problems. * Overall course ; show no climate change risk assessor time. Headache is improved Blood pressure improved Ultrasound renal duplex, concerning for unilateral renal artery stenosis Patient very sleepy Has tenderness in lower back X-ray lumbar spine done at the time of admission, concerning for possible fracture Ordering MRI lumbar spine Electronically signed by Michelle Pelletier MD * Viry Morelos, FLAQUITO - [employer] - 10/13/2019 8:44 AM EDT NEUROLOGY INPATIENT [...] negative for acute changes -IV Depacon 500mg V2kdqqt x3 doses -Continued blood pressure management as [...] to ensure the accuracy of this automated instrument assembly supervisor, some errors in instrument assembly supervisor may have occurred. * Alfonso Kendrick MD - 10/13/2019 7:57 AM EDT [facility] - Progress Note Today's Date and Time: 10/13/2019, 7:57 AM Impression : Fever, etiology to be determined Intermittent Headaches, most likely side effect of the various medications being given for control of HTN. No apparent meningitis Low back pain Aneurysm infrarenal abdominal aorta Centrilobular emphysema Allergy to quinolones, sulfa Recommendations: Monitor off antibiotics Medical Decision Making/Summary/Discussion:10/13/2019 Infection Control Recommendations [facility] Precautions Antimicrobial Stewardship Recommendations Discontinuation of therapy [...] of . INITIAL HISTORY: Patient transferred from [facility] on 10-09-19 because of low back pain and findings of an infrarenal abdominal aortic aneurysm. Developed onset of back pain on 10-07-19, associated with nausea. She was evaluated at [facility] and found to have a hypertensive emergency with systolic pressures over [address] showed a 3.5 cm infrarenal aortic aneurysm. Her BP was controlled with Cardene drip and the patient was transferred to [facility]. At [facility] patient had signs of hypoxia, and [...] file Gets together: Not on file Attends shinto service: Not on file Active member of [...] Initial FINDINGS: CTA NECK: AORTIC ARCH/ARCH VESSELS: Wjiw-mw-pntolmlu atherosclerotic plaque at the arch arch and [...] No acute pulmonary process. Emphysema. Medical Decision Orbpyg-Urtnnuzt-Ecmnu: Medical Decision Making-Other: Note: Labs, medications, radiologic studies were reviewed with personal review of films Large amounts of data were reviewed Discussed with nursing Staff, cyber ops planner Infection Control and Prevention measures reviewed All prior entries were reviewed Administer medications as ordered Prognosis: Guarded Discharge planning reviewed Follow up as outpatient. Thank you for allowing us to participate in the care of this patient. Please call with questions. Dickson Hutchinson DPM Pager: - Office: * Divina Ferris RN - 10/13/2019 3:00 AM EDT Structures Mechanic contacted internal med regarding pt blood pressure. [...] administer. New order for PO 10mg norvasc. Structures Mechanic will continue to monitor BP and pain. * Alfonso Kendrick MD - 10/12/2019 4:32 PM EDT [facility] - Progress Note Today's Date and Time: 10/12/2019, 4:32 PM Impression : Fever, etiology to be determined Intermittent Headaches, most likely side effect of the various medications being given for control of HTN. No apparent meningitis Low back pain Aneurysm infrarenal abdominal aorta Centrilobular emphysema Allergy to quinolones, sulfa Recommendations: Monitor off antibiotics Blood, urine cultures Medical Decision Making/Summary/Discussion:10/12/2019 Infection Control Recommendations [facility] Precautions Antimicrobial Stewardship Recommendations Discontinuation of therapy [...] of . INITIAL HISTORY: Patient transferred from [facility] on 10-09-19 because of low back pain and findings of an infrarenal abdominal aortic aneurysm. Developed onset of back pain on 10-07-19, associated with nausea. She was evaluated at [facility] and found to have a hypertensive emergency with systolic pressures over [address] showed a 3.5 cm infrarenal aortic aneurysm. Her BP was controlled with Cardene drip and the patient was transferred to [facility]. At [facility] patient had signs of hypoxia, and [...] file Gets together: Not on file Attends shinto service: Not on file Active member of [...] Initial FINDINGS: CTA NECK: AORTIC ARCH/ARCH VESSELS: Arel-hv-ztlorevg atherosclerotic plaque at the arch arch and [...] No acute pulmonary process. Emphysema. Medical Decision Yhyjzq-Saqixjio-Jekpq: Medical Decision Making-Other: Note: Labs, medications, radiologic studies were reviewed with personal review of films Large amounts of data were reviewed Discussed with nursing Staff, cyber ops planner Infection Control and Prevention measures reviewed All prior entries were reviewed Administer medications as ordered Prognosis: Guarded Discharge planning reviewed Follow up as outpatient. Thank you for allowing us to participate in the care of this patient. Please call with questions. Alfonso Kendrick MD Pager: - Office: * Malissa Anderson, SALES REPRESENTATIVE [employer] - 10/12/2019 2:55 PM EDT Physical Therapy [...] palliative care. No further needs. Malissa Anderson, SALES REPRESENTATIVE [employer] * Montserrat Finnegan OTA - 10/12/2019 2:26 PM EDT Occupational Therapy Not Seen Note DATE: 10/12/2019 Name: Zachary Mayanrd : 1945 Patient not available for Occupational Therapy due to: RN cx d/t pt not feeling well and has a fever. Next Scheduled Treatment: 10/13/2019 * Denys Morris MD - 10/12/2019 1:53 PM EDT [facility] Internal Medicine Teaching Residency Program Inpatient Daily Progress Note Patient: Zachary Maynard Date of : 1945 Acct: [id number] Room: Admit date: 10/09/2019 Today's date: 10/12/19 [...] Q4H PRN hydrALAZINE, 10 mg, Q6H PRN skieozpzwz-ippcufoydybve-ahjklwzu, 1 tablet, Q4H PRN sodium chloride flush, [...] Denys Morris MD Internal Medicine Resident, PGY-3 [facility]; [place], [place] 10/12/2019, 1:53 PM * Michelle Pelletier MD - 10/12/2019 1:07 PM EDT Patient seen and examined Little sleepy, clonidine discontinued Hypertension controlled Headache improved MRI brain reviewed concerning for meningioma Work-up for secondary hypertension progress * Viry Morelos, FLAQUITO - [employer] - 10/12/2019 6:51 AM EDT NEUROLOGY INPATIENT [...] to ensure the accuracy of this automated instrument assembly supervisor, some errors in instrument assembly supervisor may have occurred. * Divina Ferris RN - 10/11/2019 10:20 PM EDT Structures Mechanic contacted internal med regarding pt headache of 3/10. Pt has IV toradol and reglan ordered. Pt is alert and oriented x2. Structures Mechanic instructed to hold IV toradol and reglan and to administer PRN tylenol for the headache. Will continue to monitor. * Divina Ferris RN - 10/11/2019 10:20 PM EDT Structures Mechanic contacted internal med regarding blood pressure 161/62 and temp of 99.9 after administering scheduled clonidine and lopressor. Pt rating headache 3/10. Structures Mechanic instructed to hold scheduled IV toradol and reglan. 0435- Structures Mechanic contacted internal med regarding BP. Structures Mechanic unable to keep SBP <160. Structures Mechanic administered PRN IV hydralazine at 2315 for a pressure in the 170s, pressure went to the 160s then back up.IV labetalol administered at 0315 for SBP in the low 180s. Pressure still in the 170s. No new orders at this time. Structures Mechanic instructed to continue to monitor. 0530- IV hydralazine and PO fioricet administered. No new orders at this time. Will continue to monitor BP. * Divina Ferris RN - 10/11/2019 10:15 PM EDT Structures Mechanic received call from Dr. Kendrick regarding pt [...] Hanson MD - 10/11/2019 2:46 PM EDT [facility] Internal Medicine Teaching Residency Program Inpatient Daily Progress Note Patient: Zachary Maynard Date of : 1945 Acct: [id number] Room: Admit date: 10/09/2019 Today's date: 10/11/19 [...] of COPD, primary hypertension was transferred from [facility] for management of infrarenal abdominal aortic aneurysm and for vascular consultation. States she started having lower back pain since . Describes the pain as constant, sharp, 10out of 10 in intensity associated with nausea. Patient went to the emergency department at [facility] to have hypertensive emergency with systolics above 200 and d-dimer was elevated. CT abdomen was done which showed 3.5 infrarenal aortic aneurysm, started on Cardene drip and pain medications we re given. Patient was transferred to [facility] found to be hypoxic in upper 80s, [...] Q4H PRN hydrALAZINE, 10 mg, Q6H PRN ehxjdndftb-qvphjlbyyfyeh-sshlvjpi, 1 tablet, Q4H PRN sodium chloride flush, [...] Dwayne Hanson MD Internal Medicine Resident, PGY-1 [facility]; [place], [place] 10/11/2019, 2:46 PM * Michelel Pelletier MD - 10/11/2019 1:43 PM EDT [...] Ambulation Assistance: Independent Transfer Assistance: Independent Active Fortune Teller: Yes Occupation: Retired Additional Comments: pt reported [...] 10/11/2019 12:17 PM EDT Physical Therapy Facility/Department: [place] [address] Initial Assessment NAME: Zachary Maynard : 1945 [...] Ambulation Assistance: Independent Transfer Assistance: Independent Active Fortune Teller: Yes Occupation: Retired Additional Comments: pt reported [...] Orders received. * Viry Morelos APRN - [employer] - 10/11/2019 7:24 AM EDT NEUROLOGY INPATIENT [...] of Toradol 15mg, Reglan 5mg, Benadryl 12.5mg c2ywlzl x3 -Continued blood pressure management as you are doing -May consider LP through IR for persistent headache -We will follow Please note that this note was generated using a voice recognition dictation software. Although every effort was made to ensure the accuracy of this automated instrument assembly supervisor, some errors in instrument assembly supervisor may have occurred. * Marely Guardado RN - 10/10/2019 9:18 PM EDT Perfect served surveyor oil well directional intermed: Patient is due to get 100mg [...] Hanson MD - 10/10/2019 11:58 AM EDT [facility] Internal Medicine Teaching Residency Program Inpatient Daily Progress Note Patient: Zachary Maynard Date of : 1945 Acct: [id number] Room: Admit date: 10/09/2019 Today's date: 10/10/19 [...] of COPD, primary hypertension was transferred from [facility] for management of infrarenal abdominal aortic aneurysm and for vascular consultation. States she started having lower back pain since . Describes the pain as constant, sharp, 10out of 10 in intensity associated with nausea. Patient went to the emergency department at [facility] to have hypertensive emergency with systolics above 200 and d-dimer was elevated. CT abdomen was done which showed 3.5 infrarenal aortic aneurysm, started on Cardene drip and pain medications we re given. Patient was transferred to [facility] found to be hypoxic in upper 80s, [...] Dwayne Hanson MD Internal Medicine Resident, PGY-1 [facility]; [place], [place] 10/10/2019, 12:00 PM * Duglas Rodrigues [...] a 74 y.o. Female with transfer from [place]. Low back pain since . 3.4 infrarenal [...] [] Eloped FOLLOW-UP: Adina Bunch MD [address] [id number] DISCHARGE MEDICATIONS: New Prescriptions No medications on [...] section and content) DATE CREATED AUTHOR 08/13/2017 [facility] DATE CREATED AUTHOR AUTHOR'S ORGANIZ ATION 11/03/2019 [facility] DATE CREATED AUTHOR AUTHOR'S ORGANIZ ATION 11/29/2020 [facility] DATE CREATED AUTHOR AUTHOR'S ORGANIZ ATION 06/18/2022 [facility] DATE CREATED AUTHOR AUTHOR'S ORGANIZ ATION 04/25/2023 [facility] EP[facility] DATE CREATED AUTHOR AUTHOR'S ORGANIZ ATION 05/09/2023 [facility] Reason for Visit (unrecogniz ed section and content) Reason Comments Abdominal Pain Back Pain Status Reason Specialty Diagnoses / Procedures Referre d By Contact Referred To Contact Diagnoses AAA (abdominal aortic aneurysm) (HCC) Dgulas Rodrigues MD [address] [place] [address] [facility] Care Teams (unrecognized sec tion [...] BE BASED ON THE PRIMARY CLINICAL RECORDS. [employer] provides no warranty or guarantee of the accuracy or completeness of information in this document.
--- NOTE | 2023-12-03 12:12 | SWNOTE1 ---
SW met with pt to discuss dc needs. Pt's daughter in room during assessment. Pt lives at home with . Pt has no concerns about discharge at this time. Pt scheduled for outpt heart cath tomorrow. Important Message from Medicare reviewed and discussed with patient. Pt. verbalized understanding and signed the form. Original given to patient and copy placed in patient?s chart.
--- NOTE | 2023-12-03 12:55 | P.DS_ITS ---
DS: Providers Provider Date of admission: 12/02/23 21:16 Primary care physician: Velasquez Langley MD DS: Diagnosis Discharge Diagnosis (1) Hypertension: (2) Non-sustained ventricular tachycardia: (3) Chest pain: (4) ZAVALA (dyspnea on exertion): (5) Elevated troponin level not due myocardial infarction: (6) Atrial fibrillation: Qualifiers: Atrial fibrillation type: paroxysmal Qualified Code(s): I48.0 - Paroxysmal atrial fibrillation (7) COPD (chronic obstructive pulmonary disease): (8) Diabetes: (9) Systolic heart failure: (10) Severe protein-calorie malnutrition: Plan Above findings are improving, her chest pain has resolved with change in medication at this morning. The plan was for her to stay an additional day with medications being adjusted further, she is ambulating well she will be discharged sooner than anticipated. Maintain inpatient status secondary to the severity of her illness as well as the acuteness with the ventricular tachycardia atrial fibrillation with rapid ventricular response acute systolic heart failure. Medically necessary treatment was likely to span 2 midnights however with medications adjustment, she is improv ed to the point that she can be safely discharged DS: Summary Hospital Course Hospital Course: Patient went into the hospital with atrial fibrillation with rapid ventricular sponsor than to acute combined congestive heart failure with acute demand ischemia, also had outpatient testing confirmed ventricular tachycardia. With her cardiac instability, atrial fibrillation with RVR and ventricular tachycardia, patient had recurrence of her chest pain. She was placed in observation overnight but this morning had continued pain despite initial overnight treatment. With failing the observation status was changed to inpatient, as CTA was performed to confirm no aortic dissection. IV fluids given afterwards to preserve kidney function. Her kidney function is elevated on admission. The plan was to have her stay until tomorrow and likely obtain a heart cath tomorrow. However, patient is improved, medications have been adjusted and she is tolerating medications currently, so if she continues to ambulate well, off of supplemental oxygen, she was requiring 2 L with O2 sats in the mid 80s, an unanticipated early discharge based on symptom improvement with medication adjustment, she will be discharged to home in improving condition. Medications see list. Follow-up for outpatient cardiac cath as previously planned for tomorrow. Follow-up with me after cardiac catheterization in the office As outlined above, started off as observation, changed to inpatient status due to persisting symptoms, medications were adjusted and her chest pain has resolved, she is currently off of supplemental oxygen, if she is ambulating well later today she will be discharged home in an unanticipated early discharge. Maintain inpatient status secondary to the severity of initial symptoms and no resolution with observation treatment Status at Discharge Overall status at discharge: patient is not back to baseline Time Spent with Patient Time attestation: Total time spent providing and/or coordinating discharge services: Time spent: greater than 30 minutes Exam Constitutional Vital Signs, click to edit/add: Last Vital Signs Temp 98.0 F 12/03/23 11:15 Pulse 63 12/03/23 11:58 Resp 16 12/03/23 11:15 BP 134/69 12/03/23 11:15 Pulse Ox 90 L 12/03/23 11:26 O2 Del Method Room Air 12/03/23 11:26 O2 Flow Rate 2 12/03/23 09:49 Documenting provider has reviewed patient's vital signs: yes Common normals: no apparent distress Chest Common normals: inspection of chest normal (Palpation of the upper back does not reproduce her pain.) Respiratory Common normals: normal respiratory effort and no retractions Auscultation: no rhonchi Cardio Common normals: regular rate, regular rhythm and no murmurs Extremity Common normals: no clubbing, cyanosis or edema DS: Data Data Completed and Pending Labs on day of discharge: Labs from last 24 hours 12/03/23 12/03/23 12/02/23 05:48 02:06 22:55 WBC 7.0 RBC 3.38 L Hgb 9.4 L Hct 29.8 L MCV 88.2 MCH 27.8 MCHC 31.5 RDW 15.7 H Plt Count 298 MPV 10.3 Neut % (Auto) 60.0 Lymph % (Auto) 27.3 Anderson % (Auto) 8.0 Eos % (Auto) 3.2 Baso % (Auto) 0.9 Neut # (Auto) 4.2 Lymph # (Auto) 1.9 Anderson # (Auto) 0.6 Eos # (Auto) 0.2 Baso # (Auto) 0.1 Abs Immat Gran (auto) 0.04 H Imm/Tot Granulo (auto) 0.6 H Sodium 138 Potassium 4.2 Chloride 104 Carbon Dioxide 26.4 Anion Gap 11.8 BUN 16.0 Creatinine 1.41 H Est GFR ( Amer) 43 L Est GFR (Non-Af Amer) 36 L BUN/Creatinine Ratio 11.3 Glucose 117 H Calcium 8.7 Magnesium 2.3 Total Bilirubin 0.5 AST 10 L ALT 9 L Alkaline Phosphatase 84 Troponin I High Sens 9.6 9.8 NT-Pro-B Natriuret Pep Total Protein 5.3 L Albumin 2.4 L Globulin 2.9 Albumin/Globulin Ratio 0.8 POC Glucose 125 H 12/02/23 12/02/23 12/02/23 21:55 21:53 17:20 WBC 7.6 RBC 3.90 L Hgb 11.0 L Hct 34.4 L MCV 88.2 MCH 28.2 MCHC 32.0 RDW 15.6 H Plt Count 327 MPV 10.2 Neut % (Auto) 62.0 Lymph % (Auto) 27.8 Anderson % (Auto) 5.7 Eos % (Auto) 3.3 Baso % (Auto) 0.7 Neut # (Auto) 4.7 Lymph # (Auto) 2.1 Anderson # (Auto) 0.4 Eos # (Auto) 0.3 Baso # (Auto) 0.1 Abs Immat Gran (auto) 0.04 H Imm/Tot Granulo (auto) 0.5 Sodium 139 Potassium 3.7 Chloride 102 Carbon Dioxide 27.8 Anion Gap 12.9 BUN 13.0 Creatinine 1.29 H Est GFR ( Amer) 48 L Est GFR (Non-Af Amer) 40 L BUN/Creatinine Ratio 10.1 Glucose 143 H Calcium 9.5 Magnesium 1.7 L Total Bilirubin AST ALT Alkaline Phosphatase Troponin I High Sens 9.0 6.6 NT-Pro-B Natriuret Pep 2497.0 H* Total Protein Albumin Globulin Albumin/Globulin Ratio POC Glucose 50 L Discharge Plan Discharge Disposition: Home, Self-Care Condition: Good Discharge Medications: New isosorbide mononitrate 30 mg Tablet Extended Release 24 Hr 30 mg PO QD Qty: 30 11RF nitroglycerin 0.4 mg Tablet, Sublingual 0.4 mg sublingual Q5M PRN (Reason: Chest Pain) Qty: 20 11RF Ensure Active Protein-Muscle Liquid 1 ea PO BID Qty: 5688 11RF Continued metoprolol tartrate 25 mg Tablet 50 mg PO BID Qty: 60 11RF amiodarone 200 mg tablet 200 mg PO DAILY Spiriva Respimat 2.5 mcg/actuation mist 2 puff INHALATION DAILY ezetimibe 10 mg tablet 10 mg PO DAILY ropinirole 0.5 mg tablet 0.5 mg PO .QHS Rx Instructions: 1-3 HOURS BEFORE BEDTIME hydrochlorothiazide 25 mg tablet 50 mg PO DAILY memantine 28 mg capsule,sprinkle,ER 24hr 28 mg PO DAILY metoprolol tartrate 50 mg tablet 50 mg PO BID albuterol sulfate 90 mcg/actuation HFA aerosol inhaler 2 puff INHALATION Q4H PRN (Reason: shortness of breath or wheezing) Held Eliquis 5 mg Tablet 5 mg PO BID Qty: 60 11RF Hold Instructions: Resume on 12/05/23. metformin 500 mg tablet extended release 24 hr 500 mg PO BID Hold Instructions: Resume on 12/06/23. Print Language: Solomon Islander Forms: Portal Instructions
--- NOTE | 2023-12-05 13:59 | CM.DCFOLLOWU ---
1st attempt. No answer.
--- NOTE | 2023-12-09 13:12 | CM.DCFOLLOWU ---
Person spoke with: Shayy How are you feeling? Much better How is your pain? No pain Did you understand your discharge instructions? Yes Do you have any questions about your discharge instructions? No Were you given any prescriptions at discharge? Yes Were you able to get your prescriptions filled? Yes Do you understand how to take your medications as ordered? Yes Do you have any questions about your follow up appointment and do you plan to keep your follow up appointment? No I already f/u with Dr. Langley Is there anything else that you would like to discuss? No Questions/Comments/Concerns/Other:
--- OUTSIDE RECORDS SUMMARY | 2023-12-10 16:45 | XMS_ITS | CCD ---
Author Organization [facility] Care Team Providers Care Harbor Master Name Role Phone ADINA BUNCH Unavailable Unavailable DALTON, RACHAEL K Unavailable Unavailable ALTON, MICHELLE Unavailable Unavailable ALTON, MICHELLE Unavailable Unavailable Adina Bunch Primary Care Provider [phone] JUDIE, DUGLAS S Admitting Unavailable JUDIE, DUGLAS [...] Unavailable MD Adina Bunch Primary Care Provider [phone] MD Anju Lees Attending Provider [phone] CURRY LOVING Attending Unavailable CURRY LOVING Attending Unavailable WENDY OCHOA Attending Unavailable CURRY LOVING Attending Unavailable DENISHA KELLY Attending Unavailable Calvey, Anju R Admitting Unavailable Calvey, Anju R Attending Unavailable Adina Bunch Primary Care Unavailable Adina Bunch M Primary Care Unavailable Calvey, Anju R Admitting Unavailable Calvey, Anju R Attending Unavailable Adina Bunch Primary Care Unavailable Calvey, Anju R Admitting Unavailable Calvey, Anju R Attending Unavailable DIAB, DANIKA Referring Unavailable HORANI, SCARLETT Admitting Unavailable NELL, HANI Attending Unavailable NELL, HANI Referring Unavailable NELL, HANI Referring Unavailable DUSTY YOUNG Attending Unavailable Allergies Allergy Classification Reported Allergen(s) Allergy Type Date of Onset Reaction(s) Facility (7 sources) Adhesive Tape; 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: [Adhesive tape] Propensity to adverse reactions to drug 4 Unknown Reaction, Rash [place] (4 sources) Ciprofloxacin Drug Allergy 8 [place]om[place] (1 source) Hmg-Coa Reductase Inhibitors (Statins) Propensity to adverse reactions to drug 8 [place] (5 sources) Meperidine; 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: [MEPERIDINE] Drug Allergy 8 Anaphylaxis [place] (5 sources) moxifloxacin; 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: [MOXIFLOXACIN] Drug Allergy 8 [place]aphyl[place] (4 sources) Nalbuphine Drug Allergy 8 Unknown Reaction, Itching [place] (4 sources) Promethazine Drug Allergy 8 Unknown [place] (1 source) Sulfonamides (Antibiotic) Propensity to adverse reactions to drug 8 [place] (2 sources) black walnut pollen extract Drug Allergy [address] [facility] (2 sources) Ciprofloxacin Drug Allergy [address] [facility] (2 sources) Levamisole Drug Allergy [address] [facility] (2 sources) Meperidine Drug Allergy [address] [facility] (2 sources) moxifloxacin Drug Allergy [address] [facility] (2 sources) Nalbuphine Drug Allergy [address] [facility] (1 source) Sulfonamides (Antibiotic) Drug allergy (disorder) [address] [facility] (4 sources) Sulfacetamide; 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: [sulfacetamide] Drug Allergy 4 Unknown Reaction, Itching [facility] (4 sources) Sulfur; 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: [sulfur] Drug Allergy 4 Unknown Reaction [facility] (4 sources) Nqimubj-LPZ-LeM Reductase Inhibitor; 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: [Qmtgnhd-XBC-WyK Reductase Inhibitor] Allergy to substance 4 Unknown Reaction [facility] (1 source) Ciprofloxacin Drug Allergy 4 [facility] (1 source) Meperidine Drug Allergy 4 [facility] (1 source) moxifloxacin Drug Allergy 4 [facility] (1 source) Nalbuphine Drug Allergy 4 [facility] (1 source) Promethazine Drug Allergy 4 [facility] Medications Current Medications Medication Drug Class(es) [...] Central Nervous System Stimulant, Methylxanthine Start: 10-10-2019 hcignlskmd-kfippeuxooqqr-ttf feine (FIORICET, ESGIC) per tablet 1 tablet [id number] 200 actuat albuterol 0.09 mg/actuat metered dose [...] tablet 3 10/16/2019 Active Start: 10-11-2019 lisinopril (VA INIVIL;ZESTRIL) tablet 40 mg Start: 10-10-2019 End: [...] mg extended release oral capsule (3 sources) Z-fvfwjs-E-aspartate Receptor Antagonist Start: 04-08-2023 take 28 mg [...] disintegrating tablet 4 mg polyethylene glycol 3350 19373 mg powder for oral solution (3 sources) [...] spironolactone (ALDACTONE) t ablet 50 mg Vit C,U-Ib-Gyowd-Lutein-Zeax an (Preservision Areds-2) 250-90-40-1 mg capsule (1 source) Start: 04-17-2023 Vit C,L-Pp-Boiyg-Lutein-Zeax an (Preservision Areds-2) 250-90-40-1 mg capsule Active [...] and giddiness; 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: [Vertigo] Onset: 06-27-2017 Episodic Coronary atherosclerosis and other heart disease (2 sources) Unstable angina; 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: [Unstable angina] Onset: 12-05-2023 Chronic Diabetes mellitus without complication (3 sources) Diabetes [...] Test Name Value Interpretation Reference Range Facility 36on 12-07-2023 36 Post Discharge Call Good afternoon, I am Shaista Mari RN a lead nurse from [facility]. I am calling you to follow up on your stay with us and make sure all of your questions have been answered. You will be receiving a survey either electronic or via mail and we always aim to receive 9???s and 10???s. If there is any reason you feel as though you cannot give us these scores please indicate that now. 1. How have you been feeling since being discharged from the hospital? I feel good because I just woke up from a nap. 2. Did you understand your discharge instructions when they were given to prior to leaving? Yes Were you given an opportunity to ask questions? Yes 3. While a patient in the hospital, was your call light answered in a timely manner? Yes 4. Do have access to all medications that were prescribed to you at discharge? Yes 5. How would you rate your overall stay on a scale of 0-10, 10 being the best experience you have ever had. 10 6. Do you have any further questions you would like to discuss? No Patient Name Zachary Maynard Date 12/07/23 [facility] 30on 12-06-2023 30 The patient is Moderately Stable - Low risk of patient condition declining or worsening The patient's goals for the shift include comfort and rest The clinical goals for the shift include stable vitals and discharge Over the shift, the patient did make progress toward the following goals. There are no barriers to progression. Recommendations include monitoring vitals and discharging patient Normal [facility] 30 The patient is Moderately Stable - Low risk of patient condition declining or worsening The patient's goals for the shift include comfort and rest The clinical goals for the shift include stable vitals, comfort and safety Over the shift, the patient continues to make progress toward the following goals. Normal [facility] CBCon 12-06-2023 Erythrocyte distribution width (RBC) [Ratio] 15.8 % High 11.5-15.0 [facility] Comment on above: Performed By: #### L [id number] #### [facility] ([facility]) [address] [place] [address] ERYTHROCYTE MEAN CORPUSCULAR HEMOGLOBIN CONCENTRATION (G/DL) BY AUTOMATED 31.6 g/dL Low 32.0-35.0 [facility] Comment on above: Performed By: #### L [id number] #### [facility] [address] [place] [address] Hematocrit (Bld) [Volume fraction] 29.4 % Low 36.0-48.0 [facility] Comment on above: Performed By: #### L [id number] #### [facility] ([facility]) [address] [place] [address] Hemoglobin (Bld) [Mass/Vol] 9.3 g/dL Low 12.0-15.0 [facility] Comment on above: Performed By: #### L [id number] #### [facility] ([facility]) [address] [place] [address] MCH (RBC) [Entitic mass] 27.8 pg Normal 27.0-33.0 [facility] Comment on above: Performed By: #### L [id number] #### [facility] ([facility]) [address] [place] [address] MCV (RBC) [Entitic vol] 88.0 fL Normal 82.0-98.0 [facility] Comment on above: Performed By: #### L [id number] #### [facility] ([facility]) [address] [place] [address] PLATELETS (10*3/UL) IN BLOOD AUTOMATED COUNT 304 10*3/uL Normal 150-400 [facility] Comment on above: Performed By: #### L [id number] #### [facility] ([facility]) [address] [place] [address] RBC (Bld) [#/Vol] 3.34 10*6/uL Low 3.80-5.00 [facility] Comment on above: Performed By: #### L [id number] #### [facility] ([facility]) [address] [place] [address] WBC (Bld) [#/Vol] 5.95 10*3/uL Normal 4.00-10.60 [facility] Comment on above: Performed By: #### L [id number] #### [facility] ([facility]) [address] [place] [address] POCT GLUCOSE METER UNSOLICIT ED RESULTSon 12-06-2023 Glucose [Mass/Vol] 105 mg/dL Normal 70-105 [facility] Comment on above: Order Comment: Waive d Testing in the ED is performed under the ED CLIA certificate #[id number]. Result Comment: [email or web address] Performed By: #### L [id number] #### [facility] ([facility]) [address] [place] [address] Glucose [Mass/Vol] 103 mg/dL Normal 70-105 [facility] Comment on above: Order Comment: Waive d Testing in the ED is performed under the ED CLIA certificate #[id number]. Result Comment: [email or web address] Performed By: #### L [id number] #### [facility] ([facility]) [address] [place] [address] 30on 12-05-2023 30 Daily Case Managemen t Update Multidisciplinary rounds have been completed. Barriers to Discharge: Pending clinical course and improvement in clinical condition. Patient undergoing cardiac catheterization today; pending results and cardiology recommendations. Discharge plan is home when medically ready. Diet: Dietary Orders (From admission, onward) Start Ordered 12/05/23253 Diet NPO Diet effective now Comments: Sips with medications Question: Reason for NPO: Answer: Operation/Procedure 12/05/23255 Physician Expected Discharge Date: 12/07/2023 Discharge Delays: PT Six Click Score: 15 OT Six Click Score: PT Recommendations: OT Recommendations: New Consults: Consult Orders (From admission, onward) Start Ordered 12/05/23943 Inpatient consult to Pallative Care Once Comments: Please have discussion after patient's cardiac catheterization today Provider: (Not yet assigned) Question Answer Comment [facility] PALLIATIVE MEDICINE TEAM Reason for Consult? Goals of Care Level of Consultation Consultation and Management 12/05/2394312/05/23253 Inpatient consult to Cardiology Once Specialty: Cardiology Provider: (Not yet assigned) Question Answer Comment Reason for Consult? unstable angina [facility] CARDIOLOGY TEAM Level of Consultation Consultation and Management 12/05/23255 Normal [facility] 30 The patient is Moderately Stable - Low risk of patient condition declining or worsening The patient's goals for the shift include rest The clinical goals for the shift include vss Over the shift, the patient did make progress toward the following goals. Problem: Pain - Adult Goal: Verbalizes/displays adequate comfort level or baseline comfort level Outcome: Progressing Problem: Safety - Adult Goal: Free from fall injury Outcome: Progressing Problem: Discharge Planning Goal: Discharge to home or other facility with appropriate resources Outcome: Progressing Problem: Chronic Conditions and Co-morbidities Goal: Patient's chronic conditions and co-morbidity symptoms are monitored and maintained or improved Outcome: Progressing Normal [facility] APTTon 12-05-2023 ACTIVATED PARTIAL THROMBOPLASTIN TIME IN PPP BY COAGULATION ASSAY 136.8 Seconds Critically high 25.0-35.0 [facility] Comment on above: Order Comment: Check aPTT every 6 hours while on heparin infusion, or per protocol. Result Comment: Clin ical significance of the APTT is questionable in the presence of heparin. Performed By: #### L [id number] ####[facility] ([facility])[address] [place] [address] ACTIVATED PARTIAL THROMBOPLASTIN TIME IN PPP BY COAGULATION ASSAY 38.4 Seconds High 25.0-35.0 [facility] Comment on above: Result Comment: Clin ical significance of the APTT is questionable in the presence of heparin. Performed By: #### L [id number] #### [facility] ([facility]) [address] [place] [address] B-TYPE NATRIURETIC PEPTIDEon 12-05-2023 Natriuretic peptide B (Bld) [Mass/Vol] 555 pg/mL High 0-100 [facility] Comment on above: Performed By: #### L [id number] #### [facility] ([facility]) [address] [place] [address] BASIC METABOLIC PANELon 11-24 Anion gap [Moles/Vol] 8 mmol/L Normal 7-20 [facility] Comment on above: Performed By: #### L [id number] #### [facility] ([facility]) [address] [place] [address] Calcium [Mass/Vol] 9.0 mg/dL Normal 8.6-10.3 [facility] Comment on above: Performed By: #### L [id number] #### [facility] ([facility]) [address] [place] [address] Chloride [Moles/Vol] 107 mmol/L Normal 98-107 [facility] Comment on above: Performed By: #### L [id number] #### [facility] ([facility]) [address] [place] [address] CO2 [Moles/Vol] 29 mmol/L Normal 21-31 [facility] Comment on above: Performed By: #### L [id number] #### [facility] ([facility]) [address] [place] [address] Creatinine [Mass/Vol] 1.09 mg/dL Normal 0.60-1.20 [facility] Comment on above: Performed By: #### L [id number] #### [facility] ([facility]) [address] [place] [address] GLOMERULAR FILTRATION RATE ML/MIN/1.73 SQ M.PREDICTED 51.4 mL/min/1.73m*2 Low >60.0 [facility] Comment on above: Result Comment: The [facility]???s estimated glomerular filtration rate (eGFR) will no longer include consideration of race in its calculation. The National Kidney Foundation???s eGFR Task Force developed new recommendations for the estimation of the glomerular filtration rate in the [place] They recommend immediate implementation of the new equation refit without the race variable in all laboratories because the calculation does not include race. In addition to not including race in the calculation and reporting, it included diversity in its development, and has acceptable performance characteristics and potential consequences that do not disproportionately affect any one group of individuals. Performed By: #### L [id number] #### [facility] ([facility]) [address] [place] [address] Glucose [Mass/Vol] 91 mg/dL Normal 70-100 [facility] Comment on above: Performed By: #### L [id number] #### [facility] ([facility]) [address] [place] [address] Potassium [Moles/Vol] 4.0 mmol/L Normal 3.5-5.1 [facility] Comment on above: Performed By: #### L [id number] #### [facility] ([facility]) [address] [place] [address] Sodium [Moles/Vol] 140 mmol/L Normal 136-145 [facility] Comment on above: Performed By: #### L [id number] #### [facility] ([facility]) [address] [place] [address] Urea nitrogen [Mass/Vol] 14 mg/dL Normal 7-25 [facility] Comment on above: Performed By: #### L [id number] #### [facility] ([facility]) [address] [place] [address] UREA NITROGEN/CREATININE (MASS RATIO) IN SER/PLAS 12.8 Normal [facility] Comment on above: Performed By: #### L [id number] #### [facility] [address] [place] [address] CBC WITH AUTO DIFFERENTIALon 12-05-2023 Basophils (Bld) [#/Vol] 0.04 10*3/uL Normal 0.00-0.20 [facility] Comment on above: Performed By: #### L [id number] ####[facility] ([facility])[address] [place] [address] Basophils/100 WBC (Bld) 0.6 % Normal 0.0-1.0 [facility] Comment on above: Performed By: #### L [id number] ####[facility] ([facility])[address] [place] [address] Eosinophils (Bld) [#/Vol] 0.16 10*3/uL Normal 0.00-0.50 [facility] Comment on above: Performed By: #### L [id number] ####[facility] ([facility])[address] [place] [address] Eosinophils/100 WBC (Bld) 2.5 % Normal 0.0-6.0 [facility] Comment on above: Performed By: #### L [id number] ####[facility] ([facility])[address] [place] [address] Erythrocyte distribution width (RBC) [Ratio] 15.7 % High 11.5-15.0 [facility] Comment on above: Performed By: #### L [id number] ####[facility] ([facility])[address] [place] [address] ERYTHROCYTE MEAN CORPUSCULAR HEMOGLOBIN CONCENTRATION (G/DL) BY AUTOMATED 30.9 g/dL Low 32.0-35.0 [facility] Comment on above: Performed By: #### L [id number] ####[facility] ([facility])[address] [place] [address] Hematocrit (Bld) [Volume fraction] 31.1 % Low 36.0-48.0 [facility] Comment on above: Performed By: #### L [id number] ####[facility] ([facility])[address] [place] [address] Hemoglobin (Bld) [Mass/Vol] 9.6 g/dL Low 12.0-15.0 [facility] Comment on above: Performed By: #### L [id number] ####[facility] ([facility])[address] [place] [address] Immature granulocytes (Bld) [#/Vol] 0.04 10*3/uL Normal 0.00-0.20 [facility] Comment on above: Performed By: #### L [id number] ####[facility] ([facility])[address] [place] [address] Immature granulocytes/100 WBC (Bld) 0.6 % Normal 0.0-1.0 [facility] Comment on above: Performed By: #### L [id number] ####[facility] ([facility])[address] [place] [address] Lymphocytes (Bld) [#/Vol] 1.75 10*3/uL Normal 1.20-4.00 [facility] Comment on above: Performed By: #### L [id number] ####[facility] ([facility])[address] [place] [address] Lymphocytes/100 WBC (Bld) 26.8 % Normal 20.0-45.0 [facility] Comment on above: Performed By: #### L [id number] ####[facility] ([facility])[address] [place] [address] MCH (RBC) [Entitic mass] 28.0 pg Normal 27.0-33.0 [facility] Comment on above: Performed By: #### L [id number] ####[facility] ([facility])[address] [place] [address] MCV (RBC) [Entitic vol] 90.7 fL Normal 82.0-98.0 [facility] Comment on above: Performed By: #### L [id number] ####[facility] ([facility])[address] [place] [address] Monocytes (Bld) [#/Vol] 0.49 10*3/uL Normal 0.10-1.00 [facility] Comment on above: Performed By: #### L [id number] ####[facility] ([facility])[address] [place] [address] Monocytes/100 WBC (Bld) 7.5 % Normal 5.0-12.0 [facility] Comment on above: Performed By: #### L [id number] ####[facility] ([facility])[address] [place] [address] Neutrophils (Bld) [#/Vol] 4.05 10*3/uL Normal 1.60-7.60 [facility] Comment on above: Performed By: #### L [id number] ####[facility] ([facility])[address] [place] [address] Neutrophils/100 WBC (Bld) 62.0 % Normal 40.0-72.0 [facility] Comment on above: Performed By: #### L [id number] ####[facility] ([facility])[address] [place] [address] NRBC (PER 100 WBCS) BY AUTOMATED COUNT 0.0 % Normal 0 [facility] Comment on above: Performed By: #### L [id number] ####[facility] ([facility])[address] [place] [address] PLATELETS (10*3/UL) IN BLOOD AUTOMATED COUNT 299 10*3/uL Normal 150-400 [facility] Comment on above: Performed By: #### L [id number] ####[facility] ([facility])[address] [place] [address] RBC (Bld) [#/Vol] 3.43 10*6/uL Low 3.80-5.00 [facility] Comment on above: Performed By: #### L [id number] ####[facility] ([facility])[address] [place] [address] WBC (Bld) [#/Vol] 6.53 10*3/uL Normal 4.00-10.60 [facility] Comment on above: Performed By: #### L [id number] ####[facility] ([facility])[address] [place] [address] COMPREHENSIVE METABOLIC PANE Bao 12-05-2023 Albumin [Mass/Vol] 3.2 g/dL Low 3.5-5.7 [facility] Comment on above: Performed By: #### L [id number] #### [facility] ([facility]) [address] [place] [address] ALP [Catalytic activity/Vol] 78 U/L Normal 34-104 [facility] Comment on above: Performed By: #### L [id number] #### [facility] [address] [place] [address] ALT [Catalytic activity/Vol] 4 U/L Low 7-52 [facility] Comment on above: Performed By: #### L [id number] #### [facility] ([facility]) [address] [place] [address] Anion gap [Moles/Vol] 10 mmol/L Normal 7-20 [facility] Comment on above: Performed By: #### L [id number] #### [facility] [address] [place] [address] AST [Catalytic activity/Vol] 9 U/L Low 13-39 [facility] Comment on above: Performed By: #### L [id number] #### [facility] ([facility]) [address] [place] [address] Bilirubin [Mass/Vol] 0.6 mg/dL Normal 0.3-1.0 [facility] Comment on above: Performed By: #### L [id number] #### [facility] [address] [place] [address] Calcium [Mass/Vol] 8.9 mg/dL Normal 8.6-10.3 [facility] Comment on above: Performed By: #### L [id number] #### [facility] ([facility]) [address] [place] [address] Chloride [Moles/Vol] 107 mmol/L Normal 98-107 [facility] Comment on above: Performed By: #### L [id number] #### [facility] ([facility]) [address] [place] [address] CO2 [Moles/Vol] 27 mmol/L Normal 21-31 [facility] Comment on above: Performed By: #### L [id number] #### [facility] ([facility]) [address] [place] [address] Creatinine [Mass/Vol] 1.15 mg/dL Normal 0.60-1.20 [facility] Comment on above: Performed By: #### L [id number] #### [facility] ([facility]) [address] [place] [address] GLOMERULAR FILTRATION RATE ML/MIN/1.73 SQ M.PREDICTED 48.2 mL/min/1.73m*2 Low >60.0 [facility] Comment on above: Result Comment: The [facility]???s estimated glomerular filtration rate (eGFR) will no longer include consideration of race in its calculation. The National Kidney Foundation???s eGFR Task Force developed new recommendations for the estimation of the glomerular filtration rate in the [place] They recommend immediate implementation of the new equation refit without the race variable in all laboratories because the calculation does not include race. In addition to not including race in the calculation and reporting, it included diversity in its development, and has acceptable performance characteristics and potential consequences that do not disproportionately affect any one group of individuals. Performed By: #### L [id number] #### [facility] ([facility]) [address] [place] [address] Glucose [Mass/Vol] 90 mg/dL Normal 70-100 [facility] Comment on above: Performed By: #### L [id number] #### [facility] ([facility]) [address] [place] [address] Potassium [Moles/Vol] 4.1 mmol/L Normal 3.5-5.1 [facility] Comment on above: Performed By: #### L [id number] #### [facility] ([facility]) [address] [place] [address] Protein [Mass/Vol] 5.7 g/dL Low 6.0-8.3 [facility] Comment on above: Performed By: #### L [id number] #### [facility] ([facility]) [address] [place] [address] Sodium [Moles/Vol] 140 mmol/L Normal 136-145 [facility] Comment on above: Performed By: #### L [id number] #### [facility] ([facility]) [address] [place] [address] Urea nitrogen [Mass/Vol] 15 mg/dL Normal 7-25 [facility] Comment on above: Performed By: #### L [id number] #### [facility] ([facility]) [address] [place] [address] UREA NITROGEN/CREATININE (MASS RATIO) IN SER/PLAS 13.0 Normal [facility] Comment on above: Performed By: #### L [id number] #### [facility] ([facility]) [address] [place] [address] CONSULTon 12-05-2023 CONSULT Cardiology Consult N ote Reason for Consult: Unstable Angina, NSVT HPI: Zachary Maynard is a 78 y.o. female with Pmhx of Afib on Eliquis, HTN, T2DM, NSVT, COPD who presents with complaint of palpitations and chest pain. Patient reports for past couple months has had intermittent episodes palpitations and chest pain associated with shortness of breath, lightheadedness, neck pain and occipital headache. Pain is described as sharp 8/10, substernal and radiates to back between should blades. Pain is unrelated to activity and lasts seconds to minutes, with neck and head pain lasting minutes to hours. Patient additionally reports recent weight gain from 145lb to 157lb. Attests to abdominal bloating and orthopnea. Denies current edema but has had in past for which she used to take diuretics. Denies any prior cardiac history. Reports approximately 46 year history of smoking, quit 15 years ago. Reports family history of MS in mother at 84. Home medications include Eliquis 5 mg BID, amiodarone 200 mg BID, amlodipine 10 mg daily, Zetia 10 mg daily, Imdur 30 mg daily, metformin 500 mg BID, Lopresor 50 mg BID, nitroglycerin 0.4 mg PRN, and aldactone 100 mg daily. Patient has been in and out of hospital for past few weeks as palpitations and chest pain have worsened. Was noted top have had cough productive of greenish sputum at outside facility 1 week ago which had been present for approximately 3 weeks prior which resolved following treatment with azithromycin. Patient had Holter monitor between 11/18-12/01 which was significant for nonsustained ventricular tachycardia. Recent echocardiogram performed on 11/25 indicated EF 70-75% with no wall motion abnormalities. On admission patient vitals were signifcant for tachycardia. Initial laboratory workup indicated normal troponin 0.01, elevated BNP 555, Hdb 9.6. CXR was negative for acute cardiopulmonary process. EKG indicate sinus rhythm without ST abnormalities. Patient has had multiple bouts of NSVT per telemetry as well as reported multiple incidence of recurrent chest pain requiring 4x nitroglycerin overnight. Cardiology ROS: Review of Systems Constitutional: Positive for malaise/fatigue. Negative for chills, diaphoresis and fever. HENT: Negative for congestion and sore throat. Eyes: Negative for visual disturbance. Cardiovascular: Positive for claudication, dyspnea on exertion and orthopnea. Negative for chest pain, leg swelling, palpitations and syncope. Attests to claudication. Respiratory: Negative for shortness of breath (Breathing comfortably on 1.5L O2 by NC at rest). Gastrointestinal: Positive for bloating. Negative for abdominal pain, nausea and vomiting. Neurological: Positive for headaches (Occiptial, has been present for months). Negative for focal weakness, numbness, paresthesias and weakness. Past Medical History She has no past medical history on file. Surgical History She has a past surgical history that includes Hysterectomy. Social History She reports that she has quit smoking. Her smoking use included cigarettes. She has never used smokeless tobacco. No history on file for alcohol use and drug use. Family History No family history on file. Allergies Avelox [moxifloxacin] and Demerol [meperidine] Medications Medications Prior to Admission Medication Sig Dispense Refill Last Dose albuterol 90 mcg/actuation inhaler 2 puffs. amiodarone (Pacerone) 200 mg tablet Take 2 tablets (400 mg) by mouth two times daily for 14 days, THEN 1 tablet (200 mg) in the morning. 146 tablet 0 amLODIPine (Norvasc) 10 mg tablet Take 1 tablet by mouth in the morning. Eliquis 5 mg tablet 5 mg every 12 (twelve) hours. Past Week ezetimibe (Zetia) 10 mg tablet Take 10 mg by mouth in the morning. hydroCHLOROthiazide (HYDRODiuril) 25 mg tablet Take 25 mg by mouth in the morning. isosorbide mononitrate ER (Imdur) 30 mg 24 hr tablet Take 30 mg by mouth in the morning. Do not crush or chew. memantine (Namenda XR) 28 mg capsule,sprinkle,ER 24hr Take 1 capsule by mouth in the morning. metFORMIN (Glucophage) 500 mg tablet Take 500 mg by mouth with breakfast and with evening meal. Past Week metoprolol tartrate (Lopressor) 50 mg tablet Take 50 mg by mouth two times daily. nitroglycerin (Nitrostat) 0.[address] 0.4 mg under the tongue every 5 (five) minutes if needed for chest pain. nutritional drink (Ensure Active Protein-Muscle) liquid Take by mouth in the morning. rOPINIRole (Requip) 0.5 mg tablet Take 0.5 mg by mouth three times daily. Spiriva with HandiHaler 18 mcg inhalation capsule 1 (one) time each day at the same time. spironolactone (Aldactone) 100 mg tablet Take 1 tablet by mouth in the morning. Current Facility-Administered Medications Medication Dose Route Frequency Provider Last Rate Last Admin acetaminophen (Tylenol) tablet 650 mg 650 mg oral q6h PRN Emmanuel MD Tyron albuterol 90 mcg/actuation inha (more content not included)... Normal [facility] HEMOGLOBIN A1Con 12-05-2023 Glucose [Mass/Vol] 105 mg/dL Normal [facility] Comment on above: Performed By: #### L [id number] #### [facility] ([facility]) [address] [place] [address] HbA1c (Bld) [Mass fraction] 5.3 % Normal 4.0-6.0 [facility] Comment on above: Performed By: #### L [id number] #### [facility] ([facility]) [address] [place] [address] HPon 12-05-2023 HP H&P reviewed. The patient was examined and there are no changes to the H&P. Will proceed with coronary angiogram for unstable angina. Procedure was explained to patient at length and in detail. Risks, benefits, and alternatives were discussed. Patient is informed that risks of this invasive procedure include, but are not limited to, bleeding, hematoma, kidney injury, CVA, arrythmia requiring defibrillation, need for emergent open heart surgery, and . Patient understands these risks and wishes to proceed. Adrienne Singh MD PGY-6 Patient Safety Officer Normal [facility] LIPID PANELon 12-05-2023 CHOL/HDL 5.1 mg/dL Normal [facility] Comment on above: Performed By: #### L [id number] #### [facility] ([facility]) [address] [place] [address] Cholesterol [Mass/Vol] 164 mg/dL Normal 120-200 [facility] Comment on above: Performed By: #### L [id number] #### [facility] ([facility]) [address] [place] [address] Magnesium [Mass/Vol] 101 mg/dL Normal 40-149 [facility] Comment on above: Result Comment: TRIG LYCERIDE REFERENCE RANGE: 20 YEARS AND OLDER CARDIOVASCULAR RISK LESS THAN 150 mg/dL LOW RISK 150 TO 199 mg/dL BORDERLINE RISK 200 mg/dL AND GREATER HIGH RISK Performed By: #### L [id number] #### [facility] ([facility]) [address] [place] [address] Magnesium [Mass/Vol] 112 mg/dL Normal 0-160 [facility] Comment on above: Performed By: #### L [id number] #### [facility] [address] [place] [address] Magnesium [Mass/Vol] 32 mg/dL Normal 23-92 [facility] Comment on above: Performed By: #### L [id number] #### [facility] ([facility]) [address] [place] [address] NON HDL CHOL. (LDL+VLDL) 132 Normal [facility] Comment on above: Performed By: #### L [id number] #### [facility] ([facility]) [address] [place] [address] TOTAL VLDL-C 20 mg/dL Normal 0-40 [facility] Comment on above: Performed By: #### L [id number] #### [facility] ([facility]) [address] [place] [address] MAGNESIUMon 12-05-2023 Magnesium [Mass/Vol] 1.9 mg/dL Normal 1.9-2.7 [facility] Comment on above: Performed By: #### L [id number] #### [facility] ([facility]) [address] [place] [address] POCT GLUCOSE METER UNSOLICIT ED RESULTSon 12-05-2023 Glucose [Mass/Vol] 105 mg/dL Normal 70-105 [facility] Comment on above: Order Comment: Waive d Testing in the ED is performed under the ED CLIA certificate #[id number]. Result Comment: [email or web address] Performed By: #### L [id number] #### [facility] ([facility]) [address] [place] [address] Glucose [Mass/Vol] 118 mg/dL High 70-105 [facility] Comment on above: Order Comment: Waive d Testing in the ED is performed under the ED CLIA certificate #[id number]. Result Comment: [email or web address] Performed By: #### L [id number] #### [facility] ([facility]) [address] [place] [address] Glucose [Mass/Vol] 100 mg/dL Normal 70-105 [facility] Comment on above: Order Comment: Waive d Testing in the ED is performed under the ED CLIA certificate #[id number]. Result Comment: [email or web address] Performed By: #### L [id number] #### [facility] ([employer]) [address] [place] [address] Glucose [Mass/Vol] 107 mg/dL High 70-105 [facility] Comment on above: Order Comment: Waive d Testing in the ED is performed under the ED CLIA certificate #[id number]. Result Comment: [email or web address] Performed By: #### L [id number] #### [facility] ([employer] [facility] [employer]) [address] [facility] [place] [address] Glucose [Mass/Vol] 94 mg/dL Normal 70-105 [facility] Comment on above: Order Comment: Waive d Testing in the ED is performed under the ED CLIA certificate #[id number]. Result Comment: [email or web address] Performed By: #### L [id number] #### [facility] ([employer] [facility] [employer]) [address] [place] [address] PROTIME-INRon 12-05-2023 INR IN PPP BY COAGULATION ASSAY 1.14 High 0.90-1.10 [facility] Comment on above: Result Comment: ACCC P RECOMMENDED INR FOR WARFARIN THERAPY CONDITION INR PROPHYLAXIS OF VENOUS THROMBOSIS 2-3 (HIGH-RISK SURGERY) TREATMENT OF VENOUS THROMBOSIS 2-3 TREATMENT OF PULMONARY EMBOLISM 2-3 PREVENTION OF SYSTEMIC EMBOLISM: 2-3 ACUTE MYOCARDIAL INFARCTION TISSUE HEART VALVES VALVULAR HEART DISEASE ATRIAL FIBRILLATION RECURRENT SYSTEMIC EMBOLISM MECHANICAL HEART VALVE 2.5-3.5 FROM: ORAL ANTICOAGULANTS. MECHANISM OF ACTION, CLINICAL EFFECTIVENESS, AND OPTIMAL THERAPEUTIC RANGE. CHEST 1995;108:231S-246S. Performed By: #### L [id number] #### [facility] ([facility]) [address] [place] [address] PROTHROMBIN TIME (PT) IN PPP BY COAGULATION ASSAY 14.6 Seconds Normal 12.3-14.8 [facility] Comment on above: Performed By: #### L [id number] #### [facility] ([facility]) [address] [place] [address] TROPONIN Ion 12-05-2023 Troponin I.cardiac [Mass/Vol] 0.01 ng/mL Normal 0.00-0.04 [facility] Comment on above: Performed By: #### L [id number] #### [facility] ([facility]) [address] [place] [address] Troponin I.cardiac [Mass/Vol] 0.02 ng/mL Normal 0.00-0.04 [facility] Comment on above: Performed By: #### L [id number] #### [facility] ([facility]) [address] [place] [address] Troponin I.cardiac [Mass/Vol] 0.01 ng/mL Normal 0.00-0.04 [facility] Comment on above: Performed By: #### L [id number] ####[facility] ([facility])[address] [place] [address] Troponin I.cardiac [Mass/Vol] 0.01 ng/mL Normal 0.00-0.04 [facility] Comment on above: Performed By: #### L [id number] #### [facility] ([facility]) [address] [place] [address] Office Visiton 12-02-2023 Follow-up visit [id number] Sunday Maynard 1945 F Date Provider Department Center 12/02/2023 [facility] No family history on file Level of Service:84559 [facility] OFFICE/OUTPATIENT NEW MODERATE MDM 45 MINUTES Normal [facility] Orders Onlyon 12-02-2023 Orders Only [id number] Sunday Maynard A 1945 F Date Provider Department Center 12/02/2023 [facility] No family history on file Normal [facility] Glucose Poct Glucometerson 0 04-24-2023 Commemt1 Glu2: Cleaned Meter Normal [facility] Comment on above: Result Comment: PERF ORMED BY: [facility] [address] [place] [address] PATHOLOGIST [employer] MARKELL WILDE M.D. Performed By: #### G LULS #### Point of Care testing , Glucose [Mass/Vol] 95 mg/dL Normal [facility] Comment on above: Result Comment: [place] Glucose Reference Range is dependent on time and content of last meal. Glucose of more than 200 mg/dL in a nonstressed, ambulatory subject supports the diagnosis of Diabetes Mellitus. Performed By: #### G LULS #### Point of Care testing , Alanine aminotransferase [En zymatic activity/volume] in Serum or PlasmaOrdered By: Anju Lees on 04-17-2023 ALT [Catalytic activity/Vol] 11 U/L 7-52 [facility] Albumin [Mass/volume] in Ser um or Plasma by Bromocresol green (BCG) dye binding methoOrdered By: Anju Lees on 04-17-2023 Albumin BCG dye [Mass/Vol] 3.7 g/dL 3.5-5.7 [facility] Alkaline phosphatase [Enzyma tic activity/volume] in Serum or PlasmaOrdered By: Anju Lees on 04-17-2023 ALP [Catalytic activity/Vol] 110 U/L 34-104 [facility] Aspartate aminotransferase [ Enzymatic activity/volume] in Serum or PlasmaOrdered By: Anju Lees on 04-17-2023 AST [Catalytic activity/Vol] 16 U/L 13-39 [facility] Basophils Auto (Bld) [#/Vol] Ordered By: Anju Lees on 04-17-2023 Basophils (Bld) [#/Vol] 0.1 10*3/uL 0.0-0.2 [facility] Basophils/100 WBC Auto (Bld) Ordered By: Anju Lees on 04-17-2023 Basophils/100 WBC (Bld) 0.6 % . [facility] Bilirubin.total [Mass/volume ] in Serum or PlasmaOrdered By: Anju Lees on 04-17-2023 Bilirubin [Mass/Vol] 0.5 mg/dL 0.3-1.0 [facility] CMP with reflex to A1Con Albumin [Mass/Vol] 3.7 g/dL Normal 3.5-5.7 [facility] Comment on above: Performed By: #### C MP wRFX A1C, CBC #### [facility] [address] Albumin/Globulin [Mass ratio] 1.9 {ratio} Normal [facility] Comment on above: Performed By: #### C MP wRFX A1C, CBC #### [facility] [address] ALP [Catalytic activity/Vol] 110 U/L High 34-104 [facility] Comment on above: Result Comment: PERF ORMED BY: [facility] [address] [place] [address] PATHOLOGIST [employer] MARKELL WILDE M.D. Performed By: #### C MP wRFX A1C, CBC #### [facility] [address] [place] [address] [place] ALT [Catalytic activity/Vol] 11 U/L Normal 7-52 [facility] Comment on above: Performed By: #### C MP wRFX A1C, CBC #### [facility] [address] [place] [address] [place] Anion gap [Moles/Vol] 10.3 mmol/L Normal 6.0-15.0 [facility] Comment on above: Performed By: #### C MP wRFX A1C, CBC #### [facility] [address] [place] [address] [place] AST [Catalytic activity/Vol] 16 U/L Normal 13-39 [facility] Comment on above: Performed By: #### C MP wRFX A1C, CBC #### [facility] [address] Bilirubin [Mass/Vol] 0.5 mg/dL Normal 0.3-1.0 [facility] Comment on above: Performed By: #### C MP wRFX A1C, CBC #### [facility] [address] Calcium [Mass/Vol] 9.5 mg/dL Normal 8.6-10.3 [facility] Comment on above: Performed By: #### C MP wRFX A1C, CBC #### [facility] [address] Chloride [Moles/Vol] 102 mmol/L Normal 98-107 [facility] Comment on above: Performed By: #### C MP wRFX A1C, CBC #### [facility] [address] CO2 [Moles/Vol] 31.9 mmol/L High 21.0-31.0 [facility] Comment on above: Performed By: #### C MP wRFX A1C, CBC #### [facility] [address] Creatinine [Mass/Vol] 1.01 mg/dL Normal 0.60-1.20 [facility] Comment on above: Performed By: #### C MP wRFX A1C, CBC #### [facility] [address] [place] [address] [place] GFR/1.73 sq M.predicted MDRD (S/P/Bld) [Vol rate/Area] 56.627 mL/min/{1.73_m2} [facility] Comment on above: Performed By: #### C MP wRFX A1C, CBC #### [facility] [address] Globulin (S) [Mass/Vol] 2.0 g/dL [facility] Comment on above: Performed By: #### C MP wRFX A1C, CBC #### [facility] [address] [place] [address] [place] Glucose [Mass/Vol] 89 mg/dL Normal 70-100 [facility] Comment on above: Performed By: #### C MP wRFX A1C, CBC #### [facility] [address] [place] [address] [place] Potassium [Moles/Vol] 4.2 mmol/L Normal 3.5-5.1 [facility] Comment on above: Performed By: #### C MP wRFX A1C, CBC #### [facility] [address] Protein [Mass/Vol] 5.7 g/dL Low 6.4-8.9 [facility] Comment on above: Performed By: #### C MP wRFX A1C, CBC #### [facility] [address] Sodium [Moles/Vol] 140 mmol/L Normal 136-145 [facility] Comment on above: Performed By: #### C MP wRFX A1C, CBC #### [facility] [address] [place] [id number] [place] Urea nitrogen [Mass/Vol] 23 mg/dL Normal 7-25 [facility] Comment on above: Performed By: #### C MP wRFX A1C, CBC #### [facility] [address] [place] [id number] [facility] Calcium [Mass/volume] in Ser um or PlasmaOrdered By: Anju Lees on 04-17-2023 Calcium [Mass/Vol] 9.5 mg/dL 8.6-10.3 [facility] Carbon dioxide, total [Moles /volume] in Serum or PlasmaOrdered By: Anju Lees on 04-17-2023 CO2 [Moles/Vol] 31.9 mmol/L 21.0-31.0 [facility] Chloride [Moles/volume] in S martita or PlasmaOrdered By: Anju Lees on 04-17-2023 Chloride [Moles/Vol] 102 mmol/L 98-107 [facility] Complete Blood Count Auto Di ffon 04-17-2023 Basophils (Bld) [#/Vol] 0.1 10*3/uL Normal 0.0-0.2 [facility] Comment on above: Result Comment: PERF ORMED BY: [place] [address] PATHOLOGIST [employer] MARKELL WILDE M.D. Performed By: #### C MP wRFX A1C, CBC #### [facility] [address] [place] [address] Basophils/100 WBC (Bld) 0.6 % Normal . [facility] Comment on above: Performed By: #### C MP wRFX A1C, CBC #### [address] Eosinophils (Bld) [#/Vol] 0.3 10*3/uL Normal 0.0-0.45 [facility] Comment on above: Performed By: #### C MP wRFX A1C, CBC #### [address] Eosinophils/100 WBC (Bld) 3.1 % Normal . [facility] Comment on above: Performed By: #### C MP wRFX A1C, CBC #### [address] Erythrocyte distribution width (RBC) [Ratio] 16.3 % High 11.9-15.3 [facility] Comment on above: Performed By: #### C MP wRFX A1C, CBC #### [address] Hematocrit (Bld) [Volume fraction] 33.3 % Low 34.0-46.4 [facility] Comment on above: Performed By: #### C MP wRFX A1C, CBC #### [address] Hemoglobin (Bld) [Mass/Vol] 11.1 g/dL Low 11.8-15.4 [facility] Comment on above: Performed By: #### C MP wRFX A1C, CBC #### [place] [address] [place] Lymphocytes (Bld) [#/Vol] 2.1 10*3/uL Normal 1.00-4.8 [facility] Comment on above: Performed By: #### C MP wRFX A1C, CBC #### [facility] [address] Lymphocytes/100 WBC (Bld) 22.7 % Normal . [facility] Comment on above: Performed By: #### C MP wRFX A1C, CBC #### [facility] [address] MCH (RBC) [Entitic mass] 27.9 pg Normal 24.7-34.3 [facility] Comment on above: Performed By: #### C MP wRFX A1C, CBC #### [facility] [address] MCV (RBC) [Entitic vol] 83.3 fL Normal 80-100 [facility] Comment on above: Performed By: #### C MP wRFX A1C, CBC #### [address] Mean Corpuscular HGB Conc 33.4 g/dL Normal 32.0-35.0 [facility] Comment on above: Performed By: #### C MP wRFX A1C, CBC #### [address] Monocytes (Bld) [#/Vol] 0.6 10*3/uL Normal 0.0-0.8 [facility] Comment on above: Performed By: #### C MP wRFX A1C, CBC #### [place] [address] [place] Monocytes/100 WBC (Bld) 6.5 % Normal . [facility] Comment on above: Performed By: #### C MP wRFX A1C, CBC #### [facility] [address] [place] [address] [place] Neutrophils (Bld) [#/Vol] 6.1 10*3/uL Normal 1.8-7.7 [facility] Comment on above: Performed By: #### C MP wRFX A1C, CBC #### [facility] [address] [place] [address] [place] Neutrophils/100 WBC (Bld) 67.1 % Normal . [facility] Comment on above: Performed By: #### C MP wRFX A1C, CBC #### [facility] [address] NRBC% 0.1 /100{WBC} Normal 0-0.5 [facility] Comment on above: Performed By: #### C MP wRFX A1C, CBC #### [facility] [address] Platelet mean volume (Bld) [Entitic vol] 8.7 fL Normal 6.3-10.7 [facility] Comment on above: Performed By: #### C MP wRFX A1C, CBC #### [facility] [address] Platelets (Bld) [#/Vol] 249 10*3/uL Normal 150-450 [facility] Comment on above: Performed By: #### C MP wRFX A1C, CBC #### [facility] [address] RBC (Bld) [#/Vol] 4.00 10*6/uL Normal 3.60-5.00 [facility] Comment on above: Performed By: #### C MP wRFX A1C, CBC #### [facility] [address] [place] [address] [place] WBC (Bld) [#/Vol] 9.1 10*3/uL Normal 3.8-11.6 [facility] Comment on above: Performed By: #### C MP wRFX A1C, CBC #### [facility] [address] [place] [address] [place] Creatinine [Mass/volume] in Serum or PlasmaOrdered By: Anju Lees on 04-17-2023 Creatinine [Mass/Vol] 1.01 mg/dL 0.60-1.20 [facility] ECG 12 lead ECGon 04-17-2023 ECG 12 lead ECG [facility] [place] [address] Electrocardiograph Report Signed Patient: Zachary Maynard MR#: [id number] : 1945 Acct:[id number] Age/Sex: 77 / F ADM Date: 04/17/23 Loc: Room: Type: [facility] Attending Dr: Anju Lees MD Ordering Provider: [...] previous ECGs available Confirmed by BAILEE MACIAS [facility] ([id number] on 04/17/2023 3:12:20 PM Referred By: FREDDY Electronically Signed By:JASON MARIE MD [facility] Transcribed By: ABENA Signed By Bonfiacio Marie MD 04/17/23 1512 Normal [facility] Eosinophils Auto (Bld) [#/Vo l]Ordered By: Anju Lees on 04-17-2023 Eosinophils (Bld) [#/Vol] 0.3 10*3/uL 0.0-0.45 [facility] Eosinophils/100 WBC Auto (Bl d)Ordered By: Anju Lees on 04-17-2023 Eosinophils/100 WBC (Bld) 3.1 % . [facility] Erythrocyte distribution wid th Auto (RBC) [Ratio]Ordered By: Anju Lees on 04-17-2023 Erythrocyte distribution width (RBC) [Ratio] 16.3 % 11.9-15.3 [facility] Globulin Calc (S) [Mass/Vol] Ordered By: Anju Lees on 04-17-2023 Globulin (S) [Mass/Vol] 2.0 g/dL [facility] Glucose [Mass/volume] in Ser um or PlasmaOrdered By: Anju Lees on 04-17-2023 Glucose [Mass/Vol] 89 mg/dL 70-100 [facility] Hematocrit Auto (Bld) [Volum e fraction]Ordered By: Anju Lees on 04-17-2023 Hematocrit (Bld) [Volume fraction] 33.3 % 34.0-46.4 [facility] Hemoglobin [Mass/volume] in BloodOrdered By: Anju Lees on 04-17-2023 Hemoglobin (Bld) [Mass/Vol] 11.1 g/dL 11.8-15.4 [facility] Leukocytes [#/volume] correc lovely for nucleated erythrocytes in Blood by Automated counOrdered By: Anju Lees on 04-17-2023 WBC corrected for nucl RBC Auto (Bld) [#/Vol] 9.1 10*3/uL 3.8-11.6 [facility] Lymphocytes Auto (Bld) [#/Vo l]Ordered By: Anju Lees on 04-17-2023 Lymphocytes (Bld) [#/Vol] 2.1 10*3/uL 1.00-4.8 [facility] Lymphocytes/100 WBC Auto (Bl d)Ordered By: Anju Lees on 04-17-2023 Lymphocytes/100 WBC (Bld) 22.7 % . [facility] MCH Auto (RBC) [Entitic mass ]Ordered By: Anju Lees on 04-17-2023 MCH (RBC) [Entitic mass] 27.9 pg 24.7-34.3 [facility] MCHC Auto (RBC) [Mass/Vol]Or dered By: Anju Lees on 04-17-2023 MCHC (RBC) [Mass/Vol] 33.4 g/dL 32.0-35.0 [facility] MCV Auto (RBC) [Entitic vol] Ordered By: Anju Lees on 04-17-2023 MCV (RBC) [Entitic vol] 83.3 fL 80-100 [facility] Monocytes Auto (Bld) [#/Vol] Ordered By: Anju Lees on 04-17-2023 Monocytes (Bld) [#/Vol] 0.6 10*3/uL 0.0-0.8 [facility] Monocytes/100 WBC Auto (Bld) Ordered By: Anju Lees on 04-17-2023 Monocytes/100 WBC (Bld) 6.5 % . [facility] Neutrophils Auto (Bld) [#/Vo l]Ordered By: Anju Lees on 04-17-2023 Neutrophils (Bld) [#/Vol] 6.1 10*3/uL 1.8-7.7 [facility] Neutrophils/100 WBC Auto (Bl d)Ordered By: Anju Lees on 04-17-2023 Neutrophils/100 WBC (Bld) 67.1 % . [facility] No Panel InformationOrdered By: Anju Lees on 04-17-2023 Estimated GFR (CKD-EPI) 56.627 mL/Min [facility] Creatinine Clearance (Chem N/A [facility] Nucleated erythrocytes [Pres ence] in Blood by Automated countOrdered By: Anju Lees on 04-17-2023 Nucleated RBC Auto Ql (Bld) 0.1 /100{WBC} 0-0.5 [facility] Platelet mean volume Auto (B ld) [Entitic vol]Ordered By: Anju Lees on 04-17-2023 Platelet mean volume (Bld) [Entitic vol] 8.7 fL 6.3-10.7 [facility] Platelets Auto (Bld) [#/Vol] Ordered By: Anju Lees on 04-17-2023 Platelets (Bld) [#/Vol] 249 10*3/uL 150-450 [facility] Potassium [Moles/volume] in Serum or PlasmaOrdered By: Anju Lees on 04-17-2023 Potassium [Moles/Vol] 4.2 mmol/L 3.5-5.1 [facility] Protein [Mass/volume] in Ser um or PlasmaOrdered By: Anju Lees on 04-17-2023 Protein [Mass/Vol] 5.7 g/dL 6.4-8.9 [facility] RBC Auto (Bld) [#/Vol]Ordere d By: Anju Lees on 04-17-2023 RBC (Bld) [#/Vol] 4.00 10*6/uL 3.60-5.00 [facility] Serum or plasma albumin/glob ulin mass ratioOrdered By: Anju Lees on 04-17-2023 Albumin/Globulin [Mass ratio] 1.9 {ratio} [facility] Serum or plasma anion gap de terminationOrdered By: Anju Lees on 04-17-2023 Anion gap [Moles/Vol] 10.3 mmol/L 6.0-15.0 [facility] Sodium [Moles/volume] in Ser um or PlasmaOrdered By: Anju Lees on 04-17-2023 Sodium [Moles/Vol] 140 mmol/L 136-145 [facility] Urea nitrogen [Mass/volume] in Serum or PlasmaOrdered By: Anju Lees on 04-17-2023 Urea nitrogen [Mass/Vol] 23 mg/dL 7-25 [facility] WBC Auto (Bld) [#/Vol]Ordere d By: Anju Lees on 04-17-2023 WBC (Bld) [#/Vol] 9.1 10*3/uL 3.8-11.6 [facility] XR hand RT min 3V*on 024 XR hand RT min 3V* [facility] [place] [address] XRay Report Signed Patient: Zachary Maynard MR#: [id number] : 1945 Acct:[id number] Age/Sex: 77 / F ADM Date: 04/08/23 [facility]: [facility] Room: Type: [facility] Attending Dr: Anju Lees MD Copies to: [...] Sammie Arizmendi M.D.04/08/2023 1:57 PM Dictation Location: [facility]- Transcribed By: [facility] 04/08/23 135 Dictated By: Sammie Arizmendi MD 04/08/23 135 Signed By: 04/08/23 135 [facility] ECHOCARDIO M/2D COMPLETEon 0 05-29-2022 ECHOCARDIO M/2D COMPLETE Patient: ZACHARY MAYNARD Exam Date: 05/29/2022 : 1945 Gender:F Ordering : DR ADINA BUNCH . Admission #: [id number] Family : Order #: [id number] CLICK HERE TO VIEW EXAM ECHOCARDIOGRAM REPORT [...] M.D. on 05/30/2022 at 18:32 Normal [facility] MRI BRAIN WO CONon MRI BRAIN [...] RENATA GAYTAN Date: 2022-05-29 13:[address] [facility] US CAROTID ART BILon 023 US [...] on left, predominantly noncalcified. Electronically authenticated by: RENATAFERNY GAYTAN Date: 2022-05-29 12:[address] [facility] Covid-19 PCR (CVDTB)on 01-24 SARS-CoV-2 (COVID-19) RNA ARMIN+probe Ql (Unsp spec) Not detected Normal NOT DETECTED [facility] Comment on above: Result Comment: This test is not yet approved or cleared by the [place] FDA. When there are no FDA-approved or cleared tests available, and other criteria are met, FDA can make tests available under an emergency access mechanism called an Emergency Use Authorization (EUA). The EUA for this test is supported by the [employer]per of Health and Human Service's (HHS's) declaration [...] consistent with SARS-CoV-2. Performed By: #### [facility] #### [facility] [address] [place] [address] Dr. Samuel Kang Ambulatory Clinical Summaryo n 09-11-2020 Ambulatory Clinical Summary {[id number] }CD:[id number] Normal [facility] Patient Educationon 09-12-19 Patient Education Nutrition [...] could (more content not included)... Normal [facility] Urology Office/Clinic Noteon 09-11-2020 Urology Office/Clinic Note [...] MD, Jude Farias URO In 6 months [phone] Additional Instructions: Patient Education Calorie Counting for [...] SARS-CoV-2 (COVID-19) mR (more content not included)... [facility] Comment on above: Result Comment: Elec tronically Signed By: Thuan ARMANDO MD\.br\Date and Time Signed: 09/11/20 16:11 EDT\.br\Electronically Co-Signed By: Anastasia Cabral\.br\Date and Time Co-Signed: 09/11/20 16:08 EDT Ambulatory Clinical Summaryo 08-08-2020 Ambulatory Clinical Summary {[id number] }CD:[id number] [facility] Patient Educationon 08-09-19 21 Patient Education Urology [...] stimulation). ? For women, using a medical sonographer to prevent urine leaks. This is a [...] after experiencing incontinence. General instructions ? Take vapx-heb-hwtcqza and prescription medicines only as (more content not included)... Normal [facility] Urology Office/Clinic Noteon 08-08-2020 Urology Office/Clinic [...] MD, Jude Farias, URO [address] [place] [address]- Additional Instructions: 1mos. f/u Patient Education Urinary Incontinence Kisha Marr , personally scribed for Dr. Finley on [...] of urethral (more content not included)... Normal [facility] Comment on above: Result Comment: Elec tronically Signed By: Tushar Nunez MD, Jude Farias\.br\Date and Time Signed: 08/08/20 11:28 EDT\.br\Electronically Co-Signed By: Kisha Stevens MA\.br\Date and Time Co-Signed: 08/08/20 11:15 EDT Operative Reporton Operative Report [id number]#1.00CD: 127 [facility] Pathology Noteon 07-27-2020 Pathology Note [id number]#1.00CD :127 [facility] Comment on above: Result Comment: Elec tronically Signed By: Tushar Nunez MD, Jude Farias\.br\Date and Time Signed: 08/07/20 11:22 EDT ECG 12-Leadon 07-24-2020 ECG 12-Lead [id number]#1.00CD: 127 [facility] ED Note-Physicianon 07-25-19 ED Note-Physician [id number]#1.00CD:1 27 [facility] Lab Reportson 07-24-2020 Lab Reports [id number]#1.00CD: 127 [facility] Lab Reports [id number]#1.00CD: 127 [facility] RAD - MISCon 07-24-2020 RAD - MISC [id number]#1.00CD: 127 [facility] Insurance Correspondence Off iceon 07-20-2020 Insurance Correspondence Office [id number]#1.00CD: 127 [facility] Operative Reporton Operative Report [id number]#1.00CD: 127 [facility] Physician Orderon 07-12-2020 Physician Order [id number]#1.00CD: 127 [facility] Pre-Authorization for Medica l Treatmenton 07-12-2020 Pre-Authorization for Medical Treatment [id number]#1.00CD :127 [facility] Ambulatory Clinical Summaryo 07-11-2020 Ambulatory Clinical Summary {[id number] }CD:[id number] [facility] Patient Educationon 07-12-19 21 Patient Education Obstetrics and Gynecology Urethral Vaginal [...] including vitamins, herbs, eye drops, creams, and zyqv-jvu-glydajm medicines. ? Any problems you or family [...] diabetes medicines or blood thinners. ? Taking kwby-gin-daijsft medicines, vitamins, herbs, and supplements. ? Taking [...] to r (more content not included)... Normal [facility] Urology Office/Clinic Noteon 07-11-2020 Urology Office/Clinic Note Chief Complaint 3 week follow up This patient is a 75-year-old female with a history of a grade 2 midline cystocele. She is here today to discuss treatment options. She does have some symptoms of stress incontinence. She underwent cystoscopic examination with dilation of her urethra on May 08 2020. [facility] Staff Zachary is a [...] urine and/or bladder capacity by US- non-imaging 47043 Urnls Dip Stick Auto w/o Microscopy POC 94683 Urology Procedure Order 2. Cystocele with prolapse [...] Farias, URO [facility] [address] [place] [address]- Additional Instructions: Patient Education Urethral Vaginal Sling [...] UTI Hypertensio (more content not included)... Normal [facility] Comment on above: Result Comment: Elec tronically Signed By: Jude Finley Jr., MD\.br\Date and Time Signed: 07/11/20 14:49 EDT\.br\Electronically Co-Signed By: Libby Chambers MA\.br\Date and Time Co-Signed: 07/11/20 14:30 EDT Ambulatory Clinical Summaryo n 06-20-2020 Ambulatory Clinical Summary {[id number] }CD:[id number] [facility] Patient Educationon 06-21-19 21 Patient Education Urology Urethral Dilation Urethral dilation [...] including vitamins, herbs, eye drops, creams, and ufgl-wla-ysgvxov medicines. ? Any problems you or family [...] tells you to take them. ? Taking ivqy-bge-myfgzvm medicines, vitamins, herbs, and supplements. General instructions [...] these instructions at home: Medicines ? Take vjqn-gsk-seregst and prescription medicines only as told by [...] to prevent or treat constipation: ? Take jwvv-jrt-xyntbcf or prescription medicines. ? Eat foods that [...] You pa (more content not included)... Normal [facility] Urology Office/Clinic Noteon 06-20-2020 Urology Office/Clinic Note [...] Urnls Dip Stick Auto w/o Microscopy POC 58998 I have reviewed the previous health record information and history for this patient from Dr. Finley Follow-up With When Contact Information Tushar Nunez MD, Jude Farias, URO [facility] [address] [place] [address]- Additional Instructions: 2 weeks Patient Education Urethral [...] mixed type (more content not included)... Normal [facility] Comment on above: Result Comment: Elec tronically Signed By: Tushar Nunez MD, Jude Farias\.br\Date and Time Signed: 06/20/20 14:36 EDT\.br\Electronically Co-Signed By: Maria Del Carmen Hernandez MA\.br\Date and Time Co-Signed: 06/20/20 14:24 EDT Coding Summary.on 06-16-2020 Coding Summary. CD:[id number] Gh0b Ww+PGhlYWQ+ED5OGMLzU66af LHjfE5OE1fZGQ4VUBJJOJPDU Z9NDC8jhEQ2QFguV1OnjeHw LptfgZEnLD56OBp9VDG6uIlt ICrdqX4zeWJkC1w9VuPfTB58 bL07YPrvKQJbWoC7KaJppjue bWFy T6wbWhYdtFRiUuk+PHRhYmxl IHdpZHRoPScxMDAlJyBzdHls OB2mAh2rLLHuAYVqlZjdmNTf OiBj o3meAEOrCQjhIA8qcVoqB2Qh zRJ3JHYrc3d7Dh28kXT+PHRk GJC4zJpxTTzub898UkIfe3ck IDM3 vCQdXScsLHQ9Q40sj5X1FFAp VHSxWHX8wPL9xA1fuYkzjdbm U9SmzEIvPcN9JGB8oXPtjC1p bGln qabfbB1xTta+W48TNC1LGJLE RH2AQmn8E7ZfPrmefZA+PC90 LQLyAV87bMUwqOAsi1xpmSg6 JzEw NINfMQW8uNwtCGjoz6SsQOCb V46xpYUkq3F4QXBrpRsqpOVl KdMquRY5lW7vPNperimtg0rq dzsn Hlnro8ndiq54lW26S30fDLih BIHjTST9YOCeGVCltWizth8i kK6vCe2+UYyip5gin5nssEp1 IjIw SUHljmUpvXabYCS4p9GkBs40 U3VqwMeyy8CuSdi3iu09yMIe j8Q4xOK3WJixPYSgyY7sXEja ZnQ6 WBKhAdYzfT73sBVvIFvnGx1c jYnkgQenBJ0mOQNxslhtGOKl oQ3tMLAyfMPbkVnrQL1oZHHj bjtm o006UfJdEHB2DAPttSClM3Cf pE8eEtXcUHViVUWgL0NatXWb VShuM635CCraYoK7UQLkzzAl Y2Fs BQBkeEqkMqQ9t2U0Io7Di0Zz yydtOAY1BFlvNDS8UnKeFrAd LhQ5C7TxIxa4MBKmtUhpDJ0g J3Bh CPZlbiflmhckgTK4IXXfGEJa fM97fDDcNIcmFz5hu4L9t318 BCOlUSCguG85Gq2prUudNWIe dCBU lE3oqxshe4dvyrloWxPdNYXt TNs8NGy4BCUruHxpJvYtJBP5 UxB7YSJ6gRQosG2eoWzjzxwl dG9w Oyc+K68mvD6bOFY1NTC4xiyc ITGzbnRzSH09TR32B5FdElyg dGFibGU+GSXugrKuoMcgJX2z YmFj v1pyr8ZpUFbwE3GoIZTjNUoo Efj0MOXcCHP1eHY3rM2pXMHn MOvqf2E2eAU6Z9LlqkNuzx7o b2xs CJSjFEodI54xkOOyn3N9GLWc uBI0DCLupTewFtDwwF37Fvl+ CYYgiTwdk7UcDerce5dnv0ot dGg9 SsLrUDWvihYqdSknXBH7i1Wm Ku56Y89yFQbeGWUeMKIwBQQd FBJqzHzhxb0inX2qQx6+PGNv bCB3 qBD0yZ9pKHQmIzA3JFpfK400 UpHzgXXgUpjhb0ndg2gsmTj4 PxKfUHYbhqHgcMmmFLV3j5Sw Lz48 A60wNOakTAHiPYPyDRBvKGCl oXyezl8bwL3uAg9+QL7vp2bo hg66eQ84qIS+XHWkLKH4cLoo PSdw XXXecK6sRAppYmL8ZSKaWrQg rJ83aWZtIWuvMf5dyKgsgQov UI8xCYUplidrp877FwYxu9tr IDEw bCLuTCsfTHV9D35df1D0XZMc MWOeYYQ5kUM1lM5mpEuszlmd bGVmdDsgdmVydGljYWwtYWxp Z246 IHRvcDsnPlBhdGllbnQgTmFt SGj0C7LhZil0NGWqoKdwER2r aAKkWYvvQv5hrRxhvMikQV5k NTBp ffexm527LnJwx4vgBNHnbRGw YNidFXW8S03di4Q1CFDuPLNk KPI0nWC5aD4ehSjiqbxtvSOc dDsg fcTevCeaUUxqBBldO033DYGx rGtaWkDqawKdVSBhdHK5TZ75 FX39aYCde9M3oRT5P7CsBAXx bmct fqzcqAN3KBZwZAQjvC23Qx4l dUxlKl8eJCYnCJE9UELadOZv A3LliY1sLeSvVTGxKSHtW6Ai eHQt VCbxM206FYvfQnK0IUHzwcDu D0VoGIGqgWtbJaJ0z5B6Dw8D K1J2LE25IO79yOMzy0Z6fKO6 J3Bh AGKogedcwmiajFP8CSEsWQWk gC90Wh2dwQdvEs9vBTHnJAD9 RKGbpGJrZ4EdnF3mXnVeJANd MDAw X9MvnQJjTFzvT469ICasKrL7 XIPshzEaR3IwHFTsmOchYkN2 t3M6Tz1OVLp5SY90AE37gLWw c3R5 yPL1J2RmSUVjyqxnsnpzrSK7 RLWxVPPorQ62Yh2riPduSg5g FDLiTJS0UIDgzRKtY2PjtF1s OiAj KDTpFSTpP0DnxUUnUAdoQ607 IWoeIbD2DDCvxpAbV0FiOPTt kCmmQhT6p7F8By9XSLVlCI21 IFR5 mUG9ZS41RU22D7YpZakuyXLv bGU+PHRhYmxlIHdpZHRoPScx RVQgDhGeyRyjZB2sBp0vSDLo LWNv xPwpyNLkMtKch0kvGZEuUSyc UD3vkDhhL1UoyDY4FIPae0y4 Un34W64sH0NjeUD+PGNvbCB3 aWR0 sG0bOyJxOgH3HQgqD403AsNe nIBiSqdue5kmv3rorYx9HhZ7 BBTrnmKmcFjqPYD5y9XyDf39 Y29s IHdpZHRoPSIxNSUiIHZhbGln cp2xuF6jHo2+UDKwfTZ2wZC4 tK9tSbLiZrP4HSmjQ723GdTr cCIv Jojuv1sut7lcxQg7DzEwIJUg duGgjYzrTOH9j7XxDj61T4Uw eYqaf1YtXgo9ce73tZAmk6F5 bGU9 M2VvDSVfmsekyHJdqSevQB8c OHHsifqaSJDlsW9nEYOpZ4d0 NiYfHmF8WAdtN0RtttK6OMRx cHQg DMpnNMO5K72bs5G0QITkBHWf ATS4rKN7kM1kePqxrzrweYBi rXkkpkWqhZgtJMucLWwxA624 IHRv iDwjVSBncF7aRKUqdQEnuAwa QD2rAMFfbdvuTsiUS0vZJV3U LCBHUkVUVEEgQTwvdGQ+PHRk IHN0 aXihOEatXCGciO3aPIRiS7r4 VvNvIdG4ZWxmN4DcEETvexpo Dx43uN4fUoPtVgQ4QVqmL9Xg bnQ6 HTVxiGKcGCorSWP4X58wu4Y9 SGHlZZNiBQR5eKB6jI7bvPkz bjogbGVmdDsgdmVydGljYWwt YWxp E263SHBlhSbeQoSxNlXmWwK4 KZC5E0BgFxp0NGRaoXcaYA4v mMIlXCipXo8xfSjonOcgQY4n NTBp isamICPqwG8rGZHvgTLmtCpr LA9uSKWvpguch896WmFuNSP6 WSFpsIIeP7KthK5oHaYwNUCf MDAw H5TzjBGjHLxcB162QCasEeN9 VAGisjPoD8ZqXPCuiNadLvM8 k4V6Fa01UhQZAIFfdorvrHS+ PHRk FBX8cZjiLNseCCLipH7wYXTx P5m2MrOtEhA0UAesF3EwGVOt odbwHs00sJ7uWaCtAmM4DMde O2Zv zsR9OBWxuMOyEChzIJA3A51x v5Z4BFNfGTLyUNJ7aYS8bL2b bGlnbjogbGVmdDsgdmVydGlj YWwt ECraG609QJIkcSkzYlYkuBHf ZTwvdGQ+GBUbAAQ2zCofPBkg KFFslK0kGEDsQ6y5PfLnCdJ3 MGlu M5MtUJHgzszuLz58pJ7kCiCz MvA4WZxxF9VurkW3POQkwRFz CZklAWR5G97fx8Y8IADuUTSy MDA7 lKT5tC8zpTvhjjwwpSZzwCso vrDtyEnqIHfgRHyyL236MDCy nEqpXf29bJRtzMjyttK2R2Xr Pjwv dHI+MI63KNWyQN70cDFfdZPm k7orrMi0KnNfILGsSYC5gQfj CMhrr9AqTXXzY96ssGUer2O5 IGNv zAsxdQAoUtVpcEO0xT2uFHxd attsp2xeukezHcvrx5crkw42 mI50K18fCSbrBXGwDRGrDNNe IHZh cNkjrr8inB1cRt5+PGNvbCB3 lZK5kN9uZxKbUdF5YGudS115 NdBudSDkMrsza8ojs2neoPz3 IjIw WSRvzdHcaRxeOFH7w4LhYo57 R84lOAyxXVIeWQYpTRFzEZNd zQimyn0eyH9eWn4+FA9re9ck cm91 kV80oLL+GLUuKFO0jZfeGXea QBBxlD6aWNpnUcZ7HUMfHnLd oJ59mVFiSRtkCk8ddIomdTcy MC4w OUObtasqy095DgDxe3fsLYJo sJGdLNlkLLW1A57jw3V6PPXy HJUdQRS3eVX2uD0cvXnuwfdo bGVm zOejwqHnnEtzHLawDGzaB538 ZTCneLemSzIkaBQjJ5pqvfEA TW8yTyfifGK+XSRqBTZ8bXta PSdw FNQukK7hYPPpT1z7HzRpVkJ6 KCgeS9OrdaA8AWJzdTWxEFCz zHTJnM5rbzdvq2zykahoPnAr MDAw PTi1MFs2EAVhyZbrCcEiZNO6 TuD4LCX3gPDecE9mmUysoqxa uD0cAyu+RklOOjwvdGQ+PHRk IHN0 dSkmWCofYSWcrF5vIADmI8q3 FlZsDnS7AZpvU4BzrkG4MYZp bAAhTTXqiHUGpX9bzybdx2qi cjog HgBfDBPcYLj0DLw1FGGrdIdq GwErKNJ2JhC9AVJ5wEWzhZ7w pNnvewtoiQ6eTgs+TVJOOjwv dGQ+ VVNnMRN5wMpfTHaxQYMteE1x EFMqM6f4QjMuKaJ6GGvjU4Le uzY2ALJktRYyWXQxaPOTaN3l cztj d1zwesqsYgHbBXNpHJd7KLc8 MAEspMcfTxDzMJB2GhA8YZT8 cFBwwA3ztFtqrtdjoT9uUmc+ UGF5 GHV1DR50YZ66X4FwGeaphDYb bGU+PHRhYmxlIHdpZHRoPScx PIYuYrTwaGacAL5gZm2cRNNk LWNv bGxh (more content not included)... Normal [facility] Consent for Procedure/Surger yon 06-15-2020 Consent for Procedure/Surgery [id number]#1.00CD :127 Normal [facility] Consent for Treatmenton 05-26 Consent for Treatment [id number]#1.00CD: 127 Normal [facility] Discharge Instructionson Discharge Instructions [id number]#1.00CD :127 Normal [facility] IntraOperative Documentson 0 06-15-2020 IntraOperative Documents [id number]#1.00CD :127 Normal [facility] Main OR Intraoperative Recor don 06-15-2020 Main OR Intraoperative Record IntraOp Document Type FTURO Summary Primary Physician: Jude Finley Jr., MD Finalized Date/Time: 06/15/20 15:02:47 Pt. Name: ZACHARY MAYNARD Srinath Cordero/Sex: 1945 Female Med Rec #: [id number] Physician: Jude Finley Jr., MD Financial #: [id number] Pt. Type: O Room/Bed: / Admit/Disch: 06/15/20 13:40:05 - Institution: Case Times FTURO Entry 1 Patient Times In Room 06/15/20 14:48:00 Out Room 06/15/20 15:02:00 Procedure Times Start 06/15/20 14:50:00 Stop 06/15/20 14:52:00 Anesthesia Times Last Modified By: Sirisha Manuel RN 06/15/20 15:02:42 Case Attendance FTURO Entry 1 Entry 2 Entry 3 Case Attendee Jude iFnley Jr., MD [facility], Pauly Manuel RN, Sirisha Douglass Role Performed Surgeon - Primary Scrub - Primary Featheredge Machine Operator - Primary Time In 06/15/20 14:48:00 06/15/20 14:48:00 06/15/20 14:48:00 Time Out 06/15/20 15:02:00 06/15/20 15:02:00 06/15/20 15:02:00 Procedure CYSTOSCOPY LOCAL(.) CYSTOSCOPY LOCAL(.) CYSTOSCOPY LOCAL(.) Comments Last Modified By: Sirisha Manuel RN RN, Sirisha Naqvi RN 06/15/20 15:02:43 06/15/20 [...] Jude Finley Jr., MD, Verified ([facility] Sirisha Manuel RN Time Out [...] By: Sirisha Manuel RN 06/15/20 15:02 Normal [facility] Main OR Preoperative Recordo n 06-15-2020 Main OR Preoperative Record Holding Area Document Type FTURO Summary Primary Physician: Jude Finley Jr., MD Finalized Date/Time: 06/15/20 14:34:27 Pt. Name: ALEYDA ZACHARY Yo D.O.B./Sex: 1945 Female Med Rec #: [id number] Physician: Jude Finley Jr., MD Financial #: [id number] Pt. Type: O Room/Bed: / Admit/Disch: 06/15/20 [...] 14:25 Sirisha Manuel RN 06/15/20 14:34 Normal [facility] Operative Reporton Operative Report Patient: ZACHARY [...] urine. The Urethra was dilated to: 24 [place] w/ sounds. Devices Implanted: None. Removal: Cystoscope is removed, The patient tolerated it well. Postoperative Information Discharge: Patient is discharged home with antibiotic coverage, Follow up arranged, Office visit will be planned to make arrangements for repair of cystocele.. Normal [facility] Comment on above: Result Comment: Elec tronically Signed By: Jude Finley Jr., MD\.br\Date and Time Signed: 06/15/20 14:59 EDT Pre-Authorization for Medica l Treatmenton 06-13-2020 Pre-Authorization for Medical Treatment [id number] :127 Normal [facility] Ambulatory Clinical Summaryo n 06-12-2020 Ambulatory Clinical Summary {[id number] }CD:[id number] Normal [facility] Patient Educationon 06-13-19 Patient Education Urology [...] stimulation). ? For women, using a medical sonographer to prevent urine leaks. This is a [...] after experiencing incontinence. General instructions ? Take ufls-tav-txjbdhy and prescription medicines only as (more content not included)... Normal [facility] Urology Office/Clinic Noteon 06-12-2020 Urology Office/Clinic Note Chief Complaint Patient is here for a follow up to [facility] for ball like object HPI Staff Zachary is a 75 y.o. female here for follow up to [facility] for bladder hanging out, patient insists on planning surgery. Previous Dx: bladder infection, bladder outlet obstruction, dysuria, flank pain, gross hematuria, history of UTI, retention of urine, urethral stricture. 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 Patient was seen at [facility] on 06/07/20 for a ball like [...] When Contact Information Jude Finley Jr., MD [phone] Additional Instructions: Patient Education Urinary Incontinence I, [...] Gross hematuria (more content not included)... Normal [facility] Comment on above: Result Comment: Elec tronically Signed By: Jude Finley Jr., MD\.br\Date and Time Signed: 06/12/20 10:30 EDT\.br\Electronically Co-Signed By: Anastasia Cabral\.br\Date and Time Co-Signed: 06/12/20 10:24 EDT Coding Summary.on 05-23-2020 Coding Summary. CODING DATE: 021 FINAL [facility] STATUS: Home (Routine DC) PAYOR: Medicare [...] Ryann Villegas Date Saved: 05/23/2020 09:34 am [facility] [place]enton 05-22-2020 Consent [id number]#1.00CD: 127 [facility] Consent for Procedure/Surger yon 05-18-2020 Consent for Procedure/Surgery [id number]#1.00CD :127 [facility] Consent for Treatmenton 04-25 Consent for Treatment [id number]#1.00CD :127 [facility] Consent for Treatment [id number]#1.00CD: 127 [facility] [facility] Discharge Instructionson Discharge Instructions [id number] :127 [facility] IntraOperative Documentson 0 05-18-2020 IntraOperative Documents [id number] :127 [facility] Main OR Intraoperative Recor don 05-18-2020 Main OR Intraoperative Record IntraOp Document Type FTURO Summary Primary Physician: Jude Finley Jr., MD Finalized Date/Time: 05/18/20 14:11:35 Pt. Name: ALEYDAMARIAMA/Sex: 1945 Female Med Rec #: [id number] Physician: Jude Finley Jr., MD Financial #: [id number] Pt. Type: O Room/Bed: / Admit/Disch: 05/18/20 13:20:33 - Institution: Case Times FTURO Entry 1 Patient Times In Room 05/18/20 13:57:00 Out Room 05/18/20 14:08:00 Procedure Times Start 05/18/20 13:58:00 Stop 05/18/20 13:59:00 Anesthesia Times Last Modified By: RYLAND Glasgow RN, Lou Ann 05/18/20 14:09:40 Case Attendance FTURO Entry 1 Entry 2 Entry 3 Case Attendee Tushar Nunez MD, Jude Glasgow RN, Luz MARCELINO CST, Kimberly A Role Performed Surgeon - Primary Featheredge Machine Operator - Primary Scrub - Primary Time [...] RN, Lou Ann 05/18/20 14:11 [facility] OR Preoperative Recordo n 05-18-2020 Main OR Preoperative Record Holding Area Document Type FTURO Summary Primary Physician: Jude Finley Jr., MD Finalized Date/Time: 05/18/20 13:59:17 Pt. Name: MARIAMA MAYNARD Srinath Jauregui./Sex: 1945 Female Med Rec #: [id number] Physician: Jude Finley Jr., MD Financial #: [id number] Pt. Type: O Room/Bed: / Admit/Disch: 05/18/20 [...] Glasgow RN, Lou Ann 05/18/20 13:59 Normal [facility] Operative Reporton Operative Report Patient: Karl [...] urine. The Urethra was dilated to: 28 Mozambican w/ sounds. Devices Implanted: None. Removal: Cystoscope is removed, The patient tolerated it well. Postoperative Information Discharge: Patient is discharged home with antibiotic coverage, Follow up arranged. Normal [facility] Comment on above: Result Comment: Elec tronically Signed By: Tushar Nunez MD, Jude Farias\.br\Date and Time Signed: 05/18/20 14:02 EDT Ambulatory Clinical Summaryo n 05-11-2020 Ambulatory Clinical Summary {[id number] }[id number] Normal [facility] Patient Educationon 05-12-19 21 Patient Education [...] It is (more content not included)... Normal [facility] Urology Office/Clinic Noteon 05-11-2020 Urology Office/Clinic [...] Will order Local anesthesia. ABX sent to [facility] in [place]. 2. Retention of urine (R33.9: Retention of [...] procedure, # 2 cap(s), Refills(s) 0, Pharmacy: [facility]/pharmacy #[id number], 163, cm, 05/11/20 8:31:00 EDT, Height/Length Dosing, 64.2, kg, 05/11/20 8:31:00 EDT, W... Measure Post Void residual urine and/or bladder capacity by US- non-imaging 76338 Urnls Dip Stick Auto w/o Microscopy POC 01923 I have reviewed the previous health record information and history for this pt. from Dr. Finley. Follow-up With When Contact Inf (more content not included)... Normal [facility] Comment on above: Result Comment: Elec tronically Signed By: Tushar Nunez MD, Jude Farias\.br\Date and Time Signed: 05/11/20 10:45 EDT\.br\Electronically Co-Signed By: Kisha Stevens MA\.br\Date and Time Co-Signed: 05/11/20 08:53 EDT Ambulatory Clinical Summary n 01-04-2020 Ambulatory Clinical Summary {[id number] }[id number] Normal [facility] Patient Educationon 01-04-20 Patient Education Obstetrics and Gynecology Acute Urinary [...] to a urinary tract infection. Only take uuig-vfk-[id number] or prescription medicines for pain, discomfort, or fever as directed by your caregiver. SEEK IMMEDIATE MEDICAL CARE IF: You develop chills, fever, or show signs of generalized illness that occurs prior to seeing your caregiver. Document Released: 02/09/2007 Document Revised: 05/04/2012 Document Reviewed: 01/12/2010 ExitCare? Patient Information ?2013 [employer]. [facility] Urology Office/Clinic Noteon 01-04-2020 Urology Office/Clinic Note Chief Complaint f/u to cysto UD This patient is a 74-year-old female with a history of gross hematuria and urinary tract infection. She had a recent cystoscopic examination that showed no evidence of malignancy. She was treated by her primary care physician for another urinary tract infection. HPI Staff Pt is here for f/u to [...] Urnls Dip Stick Auto w/o Microscopy POC 15025 3. Dysuria (R30.0: Dysuria) Mild burning w/ urination. I have reviewed the previous health record information and history for this pt. from Dr. Finley. Follow-up With When Contact Information Tushar Nunez MD, Jude Farias [address] [place] [phone]- Additional Instructions: 1mos. w/ pVR Patient Education [...] mg T (more content not included)... Normal [facility] Comment on above: Result Comment: Elec tronically Signed By: Tushar Nunez MD, Jude Farias\.br\Date and Time Signed: 01/04/20 12:26 EST\.br\Electronically Co-Signed By: Kisha Stevens MA\.br\Date and Time Co-Signed: 01/04/20 12:01 EST Operative Reporton 0 Operative Report [id number] :127 Normal [facility] Cult,Bloodon 10-18-2019 Cult,Blood Specimen Description .BLOOD Special Requests 3ML LT A.C. Culture NO GROWTH 6 DAYS Report Status FINAL 10/18/2019 Normal [facility] Comment on above: Performed By: #### C DP, CP, LIP, TROPI, LIPRF, GLYHGB #### [facility] [employer] [address] [place] [address] Corset Fitter: Brandon Anaya MD Cult,Blood Specimen Description .BLOOD Special Requests back lt arm 3ml Culture NO GROWTH 6 DAYS Report Status FINAL 10/18/2019 [facility] Comment on above: Performed By: #### C DP, CP, LIP, TROPI, LIPRF, GLYHGB #### [address] [address] Corset Fitter: Brandon Anaya MD Cult,Urineon 10-18-2019 Cult,Urine Specimen Description .CLEAN CATCH URINE Special Requests NOT REPORTED Culture STAPHYLOCOCCUS SPECIES, COAGULASE NEGATIVE >[id number] CFU/ML Report Status FINAL 10/17/2019 SUSCEPTIBILITY Organism [...] REPORTED Trimethoprim/Sulfa 20 SUSCEPTIBLE Vancomycin 1 SUSCEPTIBLE [facility] Comment on above: Performed By: #### C DP, CP, LIP, TROPI, LIPRF, GLYHGB #### [place] [id number] Corset Fitter: Brandon Anaya MD Basic Metab w/rfx MGon 10-15 (cont.) [facility] Comment on above: Result Comment: Aver age GFR for 70 or more years old: 75 mL/min/1.73sq m Chronic Kidney Disease: <60 mL/min/1.73sq m Kidney failure: <15 mL/min/1.73sq m eGFR calculated using average adult body mass. Additional eGFR calculator available at: http://www.[employer].BUILD/multiple_crcl_2012.htm Performed By: #### C DP, CP, LIP, TROPI, LIPRF, GLYHGB #### [facility] [employer] [address] [place] [address] Corset Fitter: Brandon Anaya MD Anion gap [Moles/Vol] 13 mmol/L Normal 9-17 [facility] Comment on above: Performed By: #### C DP, CP, LIP, TROPI, LIPRF, GLYHGB #### [facility] [employer] [address] [place] [address] Corset Fitter: Brandon Anaya MD Calcium [Mass/Vol] 8.6 mg/dL Normal 8.6-10.4 [facility] Comment on above: Performed By: #### C DP, CP, LIP, TROPI, LIPRF, GLYHGB #### [facility] [employer] [address] [place] [address] Corset Fitter: Brandon Anaya MD Chloride [Moles/Vol] 97 mmol/L Low 98-107 [facility] Comment on above: Performed By: #### C DP, CP, LIP, TROPI, LIPRF, GLYHGB #### [address] [address] Corset Fitter: Brandon Anaya MD CO2 [Moles/Vol] 25 mmol/L Normal 20-31 [facility] Comment on above: Performed By: #### C DP, CP, LIP, TROPI, LIPRF, GLYHGB #### [facility] [employer] [address] [place] [address] Corset Fitter: Brandon Anaya MD Creatinine [Mass/Vol] 0.42 mg/dL Low 0.50-0.90 [facility] Comment on above: Performed By: #### C DP, CP, LIP, TROPI, LIPRF, GLYHGB #### [facility] [employer] [address] [place] [address] Corset Fitter: Brandon Anaya MD GFR, Amer >60 Normal >60 [facility] Comment on above: Performed By: #### C DP, CP, LIP, TROPI, LIPRF, GLYHGB #### [facility] [employer] [address] [place] [address] [phone] Corset Fitter: Brandon Anaya MD GFR,non Amer >60 Normal >60 [facility] Comment on above: Performed By: #### C DP, CP, LIP, TROPI, LIPRF, GLYHGB #### [address] [address] Corset Fitter: Brandon Anaya MD Glucose [Mass/Vol] 87 mg/dL Normal 70-99 [facility] Comment on above: Performed By: #### C DP, CP, LIP, TROPI, LIPRF, GLYHGB #### [address] [address] Corset Fitter: Brandon Anaya MD Potassium [Moles/Vol] 3.7 mmol/L Normal 3.7-5.3 [facility] Comment on above: Performed By: #### C DP, CP, LIP, TROPI, LIPRF, GLYHGB #### [address] [address] Corset Fitter: Brandon Anaya MD Sodium [Moles/Vol] 135 mmol/L Normal 135-144 [facility] Comment on above: Performed By: #### C DP, CP, LIP, TROPI, LIPRF, GLYHGB #### [address] [address] Corset Fitter: Brandon Anaya MD Urea nitrogen [Mass/Vol] 14 mg/dL Normal 8- [facility] Comment on above: Performed By: #### C DP, CP, LIP, TROPI, LIPRF, GLYHGB #### [address] [address] Corset Fitter: Brandon Anaya MD BUN/CRE Ratio NOT REPORTED Normal 9-20 [facility] Comment on above: Performed By: #### C DP, CP, LIP, TROPI, LIPRF, GLYHGB #### [address], [place] [phone] Corset Fitter: Brandon Anaya MD Staging: NOT REPORTED Normal [facility] Comment on above: Performed By: #### C DP, CP, LIP, TROPI, LIPRF, GLYHGB #### [facility] [address] [place], [place] [phone] Corset Fitter: Brandon Anaya MD Basic Metabolic Panel w/ Ref kervin to MGon 10-16-2019 Anion gap [Moles/Vol] 13 mmol/L 9 - 17 mmol/L [place] Bun/Cre Ratio NOT REPORTED [place] Calcium [Mass/Vol] 8.6 mg/dL 8.6 - 10. 4 mg/dL [place] Chloride [Moles/Vol] 97 mmol/L Low 98 - 10 7 mmol/L [place] CO2 [Moles/Vol] 25 mmol/L 20 - 31 mmol/L [place] Creatinine [Mass/Vol] 0.42 mg/dL Low 0.5 - 0.9 mg/dL [place] GFR >60 >60 mL/min [place] GFR Non- >60 >60 mL/min [place] GFR/1.73 sq M predicted among non-blacks MDRD (S/P/Bld) [Vol rate/Area] [place] Comment on above: Average GFR for 70 o r more years old: 75 mL/min/1.73sq m Chronic Kidney Disease: <60 mL/min/1.73sq m Kidney failure: <15 mL/min/1.73sq m eGFR calculated using average adult body mass. Additional eGFR calculator available at: http://www.[employer].BUILD/multiple_crcl_2012.htm GFR/1.73 sq M predicted among non-blacks MDRD (S/P/Bld) [Vol rate/Area] NOT REPORTED [place] Glucose [Mass/Vol] 87 mg/dL 70 - 99 mg/dL [place] Interpretation and review of laboratory results Abnormal [place] Potassium [Moles/Vol] 3.7 mmol/L 3.7 - 5.3 mmol/L [place] Sodium [Moles/Vol] 135 mmol/L 135 - 144 mmol/L [place] Urea nitrogen [Mass/Vol] 14 mg/dL 8 - 23 mg/dL [place] CBC auto differentialon 09-25 Basophils (Bld) [#/Vol] 0.04 10*3/uL [place] Basophils/100 WBC (Bld) 0 % 0 - 2 % [place] Differential Type NOT REPORTED [place] Eosinophils (Bld) [#/Vol] 0.10 10*3/uL [place] Eosinophils/100 WBC (Bld) 1 % 1 - 4 % [place] Erythrocyte distribution width (RBC) [Ratio] 14.6 % High 11.8 - 14.4 % [place] Hematocrit (Bld) [Volume fraction] 40.2 % 36.3 - 47.1 % [place] Hemoglobin (Bld) [Mass/Vol] 12.6 g/dL 11.9 - 15.1 g/dL [place] Immature granulocytes (Bld) [#/Vol] 0.08 10*3/uL [place] Immature granulocytes (Bld) [#/Vol] 1 % High 0 [place] Interpretation and review of laboratory results Abnormal [place] Lymphocytes (Bld) [#/Vol] 3.05 10*3/uL [place] Lymphocytes/100 WBC (Bld) 32 % 24 - 43 % [place] MCH (RBC) [Entitic mass] 29.0 pg 25.2 - 33.5 pg [place] MCHC (RBC) [Mass/Vol] 31.3 g/dL 28.4 - 34.8 g/dL [place] MCV (RBC) [Entitic vol] 92.4 fL 82.6 - 102.9 fL [place] Monocytes (Bld) [#/Vol] 0.76 10*3/uL [place] Monocytes/100 WBC (Bld) 8 % 3 - 12 % [place] Platelet mean volume (Bld) [Entitic vol] 10.6 fL 8.1 - 13.5 fL [place] Platelets (Bld) [#/Vol] 216 10*3/uL [place] Platelets (Bld) [#/Vol] NOT REPORTED [place] RBC (Bld) [#/Vol] 4.35 10*6/uL 3.95 - 5.1 1 m/uL [place] RBC morphology finding Nom (Bld) ANISOCYTOSIS PRESENT [place] Segmented neutrophils/100 WBC (Bld) 58 % 36 - 65 % [place] Segs Absolute 5.61 [place] WBC (Bld) [#/Vol] 9.6 10*3/uL [place] WBC (Bld) [#/Vol] 0.0 10*3/uL 0.0 per 10 0 WBC [place] WBC Morphology NOT REPORTED [place] CBC with Diffon 10-16-2019 Abs. Basophil 0.04 k/uL Normal 0.00-0.20 [facility] Comment on above: Performed By: #### C DP, CP, LIP, TROPI, LIPRF, GLYHGB #### [employer] [address] [place] [address] [phone] Corset Fitter: Brandon Anaya MD Abs.Imm.Granulocyte 0.08 k/uL Normal 0.00-0.30 [facility] Comment on above: Performed By: #### C DP, CP, LIP, TROPI, LIPRF, GLYHGB #### [employer] [address] [place] [phone] Corset Fitter: Brandon Anaya MD Abs.Neutrophil (Seg) 5.61 k/uL Normal 1.50-8.10 [facility] Comment on above: Performed By: #### C DP, CP, LIP, TROPI, LIPRF, GLYHGB #### [address] [address] Corset Fitter: Brandon Anaya MD Basophils/100 WBC (Bld) 0 % Normal 0-2 [facility] Comment on above: Performed By: #### C DP, CP, LIP, TROPI, LIPRF, GLYHGB #### [address] [address] Corset Fitter: Brandon Anaya MD Eosinophils (Bld) [#/Vol] 0.10 10*3/uL Normal 0.00-0.44 [facility] Comment on above: Performed By: #### C DP, CP, LIP, TROPI, LIPRF, GLYHGB #### [place] [address] Corset Fitter: Brandon Anaya MD Eosinophils/100 WBC (Bld) 1 % Normal 1-4 [facility] Comment on above: Performed By: #### C DP, CP, LIP, TROPI, LIPRF, GLYHGB #### [place] [address] Corset Fitter: Brandon Anaya MD Erythrocyte distribution width (RBC) [Ratio] 14.6 % High 11.8-14.4 [facility] Comment on above: Performed By: #### C DP, CP, LIP, TROPI, LIPRF, GLYHGB #### [place] [address] Corset Fitter: Brandon Anaya MD Hematocrit (Bld) [Volume fraction] 40.2 % Normal 36.3-47.1 [facility] Comment on above: Performed By: #### C DP, CP, LIP, TROPI, LIPRF, GLYHGB #### [address] [address] Corset Fitter: Brandon Anaya MD Hemoglobin (Bld) [Mass/Vol] 12.6 g/dL Normal 11.9-15.1 [facility] Comment on above: Performed By: #### C DP, CP, LIP, TROPI, LIPRF, GLYHGB #### [address] [address] Corset Fitter: Brandon Anaya MD Immature granulocytes (Bld) [#/Vol] 1 % High 0 [facility] Comment on above: Performed By: #### C DP, CP, LIP, TROPI, LIPRF, GLYHGB #### [address] [address] Corset Fitter: Brandon Anaya MD Lymphocytes (Bld) [#/Vol] 3.05 10*3/uL Normal 1.10-3.70 [facility] Comment on above: Performed By: #### C DP, CP, LIP, TROPI, LIPRF, GLYHGB #### [place] [address] Corset Fitter: Brandon Anaya MD Lymphocytes/100 WBC (Bld) 32 % Normal 24-43 [facility] Comment on above: Performed By: #### C DP, CP, LIP, TROPI, LIPRF, GLYHGB #### [facility] [employer] [address] [place] [phone] Corset Fitter: Brandon Anaya MD MCH (RBC) [Entitic mass] 29.0 pg Normal 25.2-33.5 [facility] Comment on above: Performed By: #### C DP, CP, LIP, TROPI, LIPRF, GLYHGB #### [facility] [employer] [address] [place] [address] Corset Fitter: Brandon Anaya MD MCHC (RBC) [Mass/Vol] 31.3 g/dL Normal 28.4-34.8 [facility] Comment on above: Performed By: #### C DP, CP, LIP, TROPI, LIPRF, GLYHGB #### [address] [address] [employer]et Fitter: Brandon Anaya MD MCV (RBC) [Entitic vol] 92.4 fL Normal 82.6-102.9 [facility] Comment on above: Performed By: #### C DP, CP, LIP, TROPI, LIPRF, GLYHGB #### [address] [address] Corset Fitter: Brandon Anaya MD Monocytes (Bld) [#/Vol] 0.76 10*3/uL Normal 0.10-1.20 [facility] Comment on above: Performed By: #### C DP, CP, LIP, TROPI, LIPRF, GLYHGB #### [address] [address] Corset Fitter: Brandon Anaya MD Monocytes/100 WBC (Bld) 8 % Normal 3-12 [facility] Comment on above: Performed By: #### C DP, CP, LIP, TROPI, LIPRF, GLYHGB #### [address] [address] Corset Fitter: Brandon Anaya MD Neutrophil (Seg) 58 % Normal 36-65 [facility] Comment on above: Performed By: #### C DP, CP, LIP, TROPI, LIPRF, GLYHGB #### [address] [address] Corset Fitter: Brandon Anaya MD NRBC Automated 0.0 per 100 WBC Normal 0.0 [facility] Comment on above: Performed By: #### C DP, CP, LIP, TROPI, LIPRF, GLYHGB #### [address] [address] Corset Fitter: Brandon Anaya MD Platelet mean volume (Bld) [Entitic vol] 10.6 fL Normal 8.1-13.5 [facility] Comment on above: Performed By: #### C DP, CP, LIP, TROPI, LIPRF, GLYHGB #### [address] [address] Corset Fitter: Brandon Anaya MD Platelets (Bld) [#/Vol] 216 10*3/uL Normal 138-453 [facility] Comment on above: Performed By: #### C DP, CP, LIP, TROPI, LIPRF, GLYHGB #### [address] [address] Corset Fitter: Brandon Anaya MD RBC (Bld) [#/Vol] 4.35 10*6/uL Normal 3.95-5.11 [facility] Comment on above: Performed By: #### C DP, CP, LIP, TROPI, LIPRF, GLYHGB #### [address] [address] Corset Fitter: Brandon Anaya MD RBC morphology finding Nom (Bld) ANISOCYTOSIS PRESENT Normal [facility] Comment on above: Performed By: #### C DP, CP, LIP, TROPI, LIPRF, GLYHGB #### [address] [address] Corset Fitter: Brandon Anaya MD WBC (Bld) [#/Vol] 9.6 10*3/uL Normal 3.5-11.3 [facility] Comment on above: Performed By: #### C DP, CP, LIP, TROPI, LIPRF, GLYHGB #### [address] [address] Corset Fitter: Brandon Anaya MD Auto Diff Performed NOT REPORTED Normal [facility] Comment on above: Performed By: #### C DP, CP, LIP, TROPI, LIPRF, GLYHGB #### [address] [address] Corset Fitter: Brandon Anaya MD Platelets (Bld) [#/Vol] NOT REPORTED Normal [facility] Comment on above: Performed By: #### C DP, CP, LIP, TROPI, LIPRF, GLYHGB #### [facility] [facility] [address] [place], [place] [phone] Corset Fitter: Brandon Anaya MD WBC Morphology NOT REPORTED Normal [facility] Comment on above: Performed By: #### C DP, CP, LIP, TROPI, LIPRF, GLYHGB #### [facility] [address] [place], [place] [phone] Corset Fitter: Brandon Anaya MD MRI LUMBAR SPINE W [...] Tiffany Lindsay MD 10/15/19 Final result Normal [facility] POC Glucose Fingerstickon Glucose [Mass/Vol] 98 mg/dL 65 - 105 mg/dL [place] Glucose [Mass/Vol] 107 mg/dL High 65 - 105 mg/dL [place] Interpretation and review of laboratory results Abnormal [place] Glucose [Mass/Vol] 81 mg/dL 65 - 105 mg/dL [place] URINALYSIS WITH MICROSCOPICo n 10-16-2019 Amorphous, UA NOT REPORTED None [place] Bacteria, UA MODERATE Abnormal None [place] Bilirubin Urine Negative NEGATIVE [place] Casts UA 0 TO 2 HYALINE Refer ence range defined for non-centrifuged specimen. [place] Color, UA YELLOW YELLOW [place] Crystals, UA NOT REPORTED None /HPF [place] Epithelial Cells UA 0 TO 2 [place] Glucose, Ur Negative NEGATIVE [place] Interpretation and review of laboratory results Abnormal [place] Ketones Ql (U) SMALL Abnormal NEGATIVE [place] Leukocyte esterase Test strip Ql (U) Negative NEGATIVE [place] Mucus, UA NOT REPORTED None [place] Nitrite, Urine Negative NEGATIVE [place] Other Observations UA NOT REPORTED NOT REQ. M [place] pH, UA 8.0 [place] Protein (U) [Mass/Vol] Negative NEGATIVE [place] RBC (U) [#/Vol] 2 TO 5 [place] Comment on above: Reference range defi nya for non-centrifuged specimen. Renal Epithelial, UA NOT REPORTED 0 /HPF Me [place] Specific [place], UA 1.006 [place] Trichomonas, UA NOT REPORTED None [place] Turbidity UA CLOUDY Abnormal CLEAR [place] Urine Hgb Negative NEGATIVE [place] Urobilinogen, Urine Normal Normal [place] WBC, UA 0 TO 2 [place] Yeast, UA NOT REPORTED None [place] - [place] Urinalysis w/ Microon 2019 ----- Normal [facility] Comment on above: Performed By: #### C DP, CP, LIP, TROPI, LIPRF, GLYHGB #### [facility] [employer] [address] [place] [phone] Corset Fitter: Brandon Anaya MD Acetoacetic Acid,Ur SMALL Abnormal NEG [facility] Comment on above: Performed By: #### C DP, CP, LIP, TROPI, LIPRF, GLYHGB #### [facility] [employer] [address] [place] [phone] Corset Fitter: Brandon Anaya MD Bacteria LM.HPF (Urine sed) [#/Area] MODERATE Abnormal NONE [facility] Comment on above: Performed By: #### C DP, CP, LIP, TROPI, LIPRF, GLYHGB #### [facility] [employer] [address] [place] [phone] Corset Fitter: Brandon Anaya MD Bilirubin, SemiQt,Ur Negative Normal NEG [facility] Comment on above: Performed By: #### C DP, CP, LIP, TROPI, LIPRF, GLYHGB #### [facility] [employer] [address] [place] [phone] Corset Fitter: Brandon Anaya MD Casts LM.LPF (Urine sed) [#/Area] 0 TO 2 HYALINE Normal 0-8 [facility] Comment on above: Result Comment: Refe rence range defined for non-centrifuged specimen. Performed By: #### C DP, CP, LIP, TROPI, LIPRF, GLYHGB #### [address] [address] [employer]et Fitter: Brandon Anaya MD Color (U) YELLOW Normal YEL [facility] Comment on above: Performed By: #### C DP, CP, LIP, TROPI, LIPRF, GLYHGB #### [address] [address] Corset Fitter: Brandon Anaya MD Epithelial cells LM.HPF (Urine sed) [#/Area] 0 TO 2 Normal 0-5 [facility] Comment on above: Performed By: #### C DP, CP, LIP, TROPI, LIPRF, GLYHGB #### [facility] [employer] [address] [place] [address] Corset Fitter: Brandon Anaya MD Glucose Ql (U) Negative Normal NEG [facility] Comment on above: Performed By: #### C DP, CP, LIP, TROPI, LIPRF, GLYHGB #### [address] [address] [employer]et Fitter: Brandon Anaya MD Hemoglobin, Ur Negative Normal NEG [facility] Comment on above: Performed By: #### C DP, CP, LIP, TROPI, LIPRF, GLYHGB #### [address] [address] Corset Fitter: Brandon Anaya MD Leukocyte esterase Test strip Ql (U) Negative Normal NEG [facility] Comment on above: Performed By: #### C DP, CP, LIP, TROPI, LIPRF, GLYHGB #### [address] [address] Corset Fitter: Brandon Anaya MD Nitrite,Ur Negative Normal NEG [facility] Comment on above: Performed By: #### C DP, CP, LIP, TROPI, LIPRF, GLYHGB #### [address] [address] [employer] Fitter: Brandon Anaya MD pH (U) 8.0 [pH] Normal 5.0-8.0 [facility] Comment on above: Performed By: #### C DP, CP, LIP, TROPI, LIPRF, GLYHGB #### [address] [address] [employer] Fitter: Brandon Anaya MD Protein Ql (U) Negative Normal NEG [facility] Comment on above: Performed By: #### C DP, CP, LIP, TROPI, LIPRF, GLYHGB #### [address] [address] [employer]itter: Brandon Anaya MD RBC (U) [#/Vol] 2 TO 5 Normal 0-4 [facility] Comment on above: Result Comment: Refe rence range defined for non-centrifuged specimen. Performed By: #### C DP, CP, LIP, TROPI, LIPRF, GLYHGB #### [address] [address] Corset Fitter: Brandon Anaya MD Specific gravity (U) [Rel density] 1.006 Normal 1.005-1.030 [facility] Comment on above: Performed By: #### C DP, CP, LIP, TROPI, LIPRF, GLYHGB #### [facility] [address] [place] [phone] Corset Fitter: Brandon Anaya MD Turbidity CLOUDY Abnormal CLEAR [facility] Comment on above: Performed By: #### C DP, CP, LIP, TROPI, LIPRF, GLYHGB #### [facility] [address] [place] [phone] Corset Fitter: Brandon Anaya MD Urobilinogen,Ur Normal Normal NORM [facility] Comment on above: Performed By: #### C DP, CP, LIP, TROPI, LIPRF, GLYHGB #### [address] [address] Corset Fitter: Brandon Anaya MD WBC (U) [#/Vol] 0 TO 2 Normal 0-5 [facility] Comment on above: Performed By: #### C DP, CP, LIP, TROPI, LIPRF, GLYHGB #### [address] [address] Corset Fitter: Brandon Anaya MD Amorphous sediment LM Ql (Urine sed) NOT REPORTED Normal NONE [facility] Comment on above: Performed By: #### C DP, CP, LIP, TROPI, LIPRF, GLYHGB #### [facility] [employer] [address] [place] [phone] Corset Fitter: Brandon Anaya MD Crystals LM Nom (Urine sed) NOT REPORTED Normal NONE [facility] Comment on above: Performed By: #### C DP, CP, LIP, TROPI, LIPRF, GLYHGB #### [facility] [employer] [address] [place] [address] Corset Fitter: Brandon Anaya MD Epithelial, Renal NOT REPORTED Normal 0 [facility] Comment on above: Performed By: #### C DP, CP, LIP, TROPI, LIPRF, GLYHGB #### [facility] [employer] [address] [place] [phone] Corset Fitter: Brandon Anaya MD Mucus Strands NOT REPORTED Normal [facility] Comment on above: Performed By: #### C DP, CP, LIP, TROPI, LIPRF, GLYHGB #### [facility] [employer] [address] [place] [phone] Corset Fitter: Brandon Anaya MD Other Observations NOT REPORTED Normal NREQ [facility] Comment on above: Performed By: #### C DP, CP, LIP, TROPI, LIPRF, GLYHGB #### [facility] [employer] [address] [place] [phone] Corset Fitter: Brandon Anaya MD Trichomonas NOT REPORTED Normal [facility] Comment on above: Performed By: #### C DP, CP, LIP, TROPI, LIPRF, GLYHGB #### [address] [address] Corset Fitter: Brandon Anaya MD Yeast LM Ql (Urine sed) NOT REPORTED Normal [facility] Comment on above: Performed By: #### C DP, CP, LIP, TROPI, LIPRF, GLYHGB #### [facility] [employer] [address] [place] [phone] Corset Fitter: Brandon Anaya MD Basic Metab w/rfx MGon 10-14 (cont.) Normal [facility] Comment on above: Result Comment: Aver age GFR for 70 or more years old: 75 mL/min/1.73sq m Chronic Kidney Disease: <60 mL/min/1.73sq m Kidney failure: <15 mL/min/1.73sq m eGFR calculated using average adult body mass. Additional eGFR calculator available at: http://www.[employer].BUILD/multiple_crcl_2012.htm Performed By: #### C DP, CP, LIP, TROPI, LIPRF, GLYHGB #### [facility] [employer] [address] [place] [phone] Corset Fitter: Brandon Anaya MD Anion gap [Moles/Vol] 14 mmol/L Normal 9-17 [facility] Comment on above: Performed By: #### C DP, CP, LIP, TROPI, LIPRF, GLYHGB #### [facility] [employer] [address] [place] [phone] Corset Fitter: Brandon Anaya MD Calcium [Mass/Vol] 8.8 mg/dL Normal 8.6-10.4 [facility] Comment on above: Performed By: #### C DP, CP, LIP, TROPI, LIPRF, GLYHGB #### [address] [address] Corset Fitter: Brandon Anaya MD Chloride [Moles/Vol] 94 mmol/L Low 98-107 [facility] Comment on above: Performed By: #### C DP, CP, LIP, TROPI, LIPRF, GLYHGB #### [address] [address] Corset Fitter: Brandon Anaya MD CO2 [Moles/Vol] 23 mmol/L Normal 20-31 [facility] Comment on above: Performed By: #### C DP, CP, LIP, TROPI, LIPRF, GLYHGB #### [facility] [employer] [address] [place] [address] Corset Fitter: Brandon Anaya MD Creatinine [Mass/Vol] 0.36 mg/dL Low 0.50-0.90 [facility] Comment on above: Performed By: #### C DP, CP, LIP, TROPI, LIPRF, GLYHGB #### [address] [address] Corset Fitter: Brandon Anaya MD GFR, Amer >60 Normal >60 [facility] Comment on above: Performed By: #### C DP, CP, LIP, TROPI, LIPRF, GLYHGB #### [address] [address] Corset Fitter: Brandon Anaya MD GFR,non Amer >60 Normal >60 [facility] Comment on above: Performed By: #### C DP, CP, LIP, TROPI, LIPRF, GLYHGB #### [address] [address] Corset Fitter: Brandon Anaya MD Glucose [Mass/Vol] 89 mg/dL Normal 70-99 [facility] Comment on above: Performed By: #### C DP, CP, LIP, TROPI, LIPRF, GLYHGB #### [address] [address] Corset Fitter: Brandon Anaya MD Potassium [Moles/Vol] 3.7 mmol/L Normal 3.7-5.3 [facility] Comment on above: Performed By: #### C DP, CP, LIP, TROPI, LIPRF, GLYHGB #### [address] [address] Corset Fitter: Brandon Anaya MD Sodium [Moles/Vol] 131 mmol/L Low 135-144 [facility] Comment on above: Performed By: #### C DP, CP, LIP, TROPI, LIPRF, GLYHGB #### [address] [address] Corset Fitter: Brandon Anaya MD Urea nitrogen [Mass/Vol] 16 mg/dL Normal 8-23 [facility] Comment on above: Performed By: #### C DP, CP, LIP, TROPI, LIPRF, GLYHGB #### [address] [address] Corset Fitter: Brandon Anaya MD BUN/CRE Ratio NOT REPORTED Normal 9-20 [facility] Comment on above: Performed By: #### C DP, CP, LIP, TROPI, LIPRF, GLYHGB #### [facility] [address] [place], [place] [phone] Corset Fitter: Brandon Anaya MD Staging: NOT REPORTED Normal [facility] Comment on above: Performed By: #### C DP, CP, LIP, TROPI, LIPRF, GLYHGB #### [facility] [address] [place], [place] [phone] Corset Fitter: Brandon Anaya MD Basic Metabolic Panel w/ Ref kervin to MGon 10-15-2019 Anion gap [Moles/Vol] 14 mmol/L 9 - 17 mmol/L [place] Bun/Cre Ratio NOT REPORTED [place] Calcium [Mass/Vol] 8.8 mg/dL 8.6 - 10. 4 mg/dL [place] Chloride [Moles/Vol] 94 mmol/L Low 98 - 10 7 mmol/L [place] CO2 [Moles/Vol] 23 mmol/L 20 - 31 mmol/L [place] Creatinine [Mass/Vol] 0.36 mg/dL Low 0.5 - 0.9 mg/dL [place] GFR >60 >60 mL/min [place] GFR Non- >60 >60 mL/min [place] GFR/1.73 sq M predicted among non-blacks MDRD (S/P/Bld) [Vol rate/Area] [place] Comment on above: Average GFR for 70 o r more years old: 75 mL/min/1.73sq m Chronic Kidney Disease: <60 mL/min/1.73sq m Kidney failure: <15 mL/min/1.73sq m eGFR calculated using average adult body mass. Additional eGFR calculator available at: http://www.[employer].com/multiple_crcl_2012.htm GFR/1.73 sq M predicted among non-blacks MDRD (S/P/Bld) [Vol rate/Area] NOT REPORTED [place] Glucose [Mass/Vol] 89 mg/dL 70 - 99 mg/dL [place] Interpretation and review of laboratory results Abnormal [place] Potassium [Moles/Vol] 3.7 mmol/L 3.7 - 5.3 mmol/L [place] Sodium [Moles/Vol] 131 mmol/L Low 135 - 144 mmol/L [place] Urea nitrogen [Mass/Vol] 16 mg/dL 8 - 23 mg/dL [place] CBC auto differentialon 09-25 Basophils (Bld) [#/Vol] 0.06 10*3/uL [place] Basophils/100 WBC (Bld) 1 % 0 - 2 % [place] Differential Type NOT REPORTED [place] Eosinophils (Bld) [#/Vol] 0.13 10*3/uL [place] Eosinophils/100 WBC (Bld) 1 % 1 - 4 % [place] Erythrocyte distribution width (RBC) [Ratio] 14.6 % High 11.8 - 14.4 % [place] Hematocrit (Bld) [Volume fraction] 41.6 % 36.3 - 47.1 % [place] Hemoglobin (Bld) [Mass/Vol] 13.4 g/dL 11.9 - 15.1 g/dL [place] Immature granulocytes (Bld) [#/Vol] 1 % High 0 [place] Immature granulocytes (Bld) [#/Vol] 0.11 10*3/uL [place] Interpretation and review of laboratory results Abnormal [place] Lymphocytes (Bld) [#/Vol] 2.56 10*3/uL [place] Lymphocytes/100 WBC (Bld) 24 % 24 - 43 % [place] MCH (RBC) [Entitic mass] 29.3 pg 25.2 - 33.5 pg [place] MCHC (RBC) [Mass/Vol] 32.2 g/dL 28.4 - 34.8 g/dL [place] MCV (RBC) [Entitic vol] 90.8 fL 82.6 - 102.9 fL [place] Monocytes (Bld) [#/Vol] 0.78 10*3/uL [place] Monocytes/100 WBC (Bld) 7 % 3 - 12 % [place] Platelet mean volume (Bld) [Entitic vol] 10.6 fL 8.1 - 13.5 fL [place] Platelets (Bld) [#/Vol] NOT REPORTED [place] Platelets (Bld) [#/Vol] 241 10*3/uL [place] RBC (Bld) [#/Vol] 4.58 10*6/uL 3.95 - 5.1 1 m/uL [place] RBC morphology finding Nom (Bld) ANISOCYTOSIS PRESENT [place] Segmented neutrophils/100 WBC (Bld) 66 % High 36 - 65 % [place] Segs Absolute 7.00 [place] WBC (Bld) [#/Vol] 10.6 10*3/uL [place] WBC (Bld) [#/Vol] 0.0 10*3/uL 0.0 per 10 0 WBC [place] WBC Morphology NOT REPORTED [place] CBC with Diffon 10-15-2019 Abs. Basophil 0.06 k/uL Normal 0.00-0.20 [facility] Comment on above: Performed By: #### C DP, CP, LIP, TROPI, LIPRF, GLYHGB #### [facility] [employer] [address] [place], [place] [phone] Corset Fitter: Brandon Anaya MD Abs.Imm.Granulocyte 0.11 k/uL Normal 0.00-0.30 [facility] Comment on above: Performed By: #### C DP, CP, LIP, TROPI, LIPRF, GLYHGB #### [facility] [employer] [address] [place], [place] [phone] Corset Fitter: Brandon Anaya MD Abs.Neutrophil (Seg) 7.00 k/uL Normal 1.50-8.10 [facility] Comment on above: Performed By: #### C DP, CP, LIP, TROPI, LIPRF, GLYHGB #### [address] [address] Corset Fitter: Brandon Anaya MD Basophils/100 WBC (Bld) 1 % Normal 0-2 [facility] Comment on above: Performed By: #### C DP, CP, LIP, TROPI, LIPRF, GLYHGB #### [address] [address] Corset Fitter: Brandon Anaya MD Eosinophils (Bld) [#/Vol] 0.13 10*3/uL Normal 0.00-0.44 [facility] Comment on above: Performed By: #### C DP, CP, LIP, TROPI, LIPRF, GLYHGB #### [place] [address] Corset Fitter: Brandon Anaya MD Eosinophils/100 WBC (Bld) 1 % Normal 1-4 [facility] Comment on above: Performed By: #### C DP, CP, LIP, TROPI, LIPRF, GLYHGB #### [place] [address] Corset Fitter: Brandon Anaya MD Erythrocyte distribution width (RBC) [Ratio] 14.6 % High 11.8-14.4 [facility] Comment on above: Performed By: #### C DP, CP, LIP, TROPI, LIPRF, GLYHGB #### [place] [address] Corset Fitter: Brandon Anaya MD Hematocrit (Bld) [Volume fraction] 41.6 % Normal 36.3-47.1 [facility] Comment on above: Performed By: #### C DP, CP, LIP, TROPI, LIPRF, GLYHGB #### [address] [address] Corset Fitter: Brandon Anaya MD Hemoglobin (Bld) [Mass/Vol] 13.4 g/dL Normal 11.9-15.1 [facility] Comment on above: Performed By: #### C DP, CP, LIP, TROPI, LIPRF, GLYHGB #### [address] [address] Corset Fitter: Brandon Anaya MD Immature granulocytes (Bld) [#/Vol] 1 % High 0 [facility] Comment on above: Performed By: #### C DP, CP, LIP, TROPI, LIPRF, GLYHGB #### [address] [address] Corset Fitter: Brandon Anaya MD Lymphocytes (Bld) [#/Vol] 2.56 10*3/uL Normal 1.10-3.70 [facility] Comment on above: Performed By: #### C DP, CP, LIP, TROPI, LIPRF, GLYHGB #### [address] [address] Corset Fitter: Brandon Anaya MD Lymphocytes/100 WBC (Bld) 24 % Normal 24-43 [facility] Comment on above: Performed By: #### C DP, CP, LIP, TROPI, LIPRF, GLYHGB #### [address] [address] Corset Fitter: Brandon Anaya MD MCH (RBC) [Entitic mass] 29.3 pg Normal 25.2-33.5 [facility] Comment on above: Performed By: #### C DP, CP, LIP, TROPI, LIPRF, GLYHGB #### [address] [address] Corset Fitter: Brandon Anaya MD MCHC (RBC) [Mass/Vol] 32.2 g/dL Normal 28.4-34.8 [facility] Comment on above: Performed By: #### C DP, CP, LIP, TROPI, LIPRF, GLYHGB #### [address] [address] Corset Fitter: Brandon Anaya MD MCV (RBC) [Entitic vol] 90.8 fL Normal 82.6-102.9 [facility] Comment on above: Performed By: #### C DP, CP, LIP, TROPI, LIPRF, GLYHGB #### [address] [address] Corset Fitter: Brandon Anaya MD Monocytes (Bld) [#/Vol] 0.78 10*3/uL Normal 0.10-1.20 [facility] Comment on above: Performed By: #### C DP, CP, LIP, TROPI, LIPRF, GLYHGB #### [place] [address] Corset Fitter: Brandon Anaya MD Monocytes/100 WBC (Bld) 7 % Normal 3-12 [facility] Comment on above: Performed By: #### C DP, CP, LIP, TROPI, LIPRF, GLYHGB #### [place] [address] Corset Fitter: Brandon Anaya MD Neutrophil (Seg) 66 % High 36-65 [facility] Comment on above: Performed By: #### C DP, CP, LIP, TROPI, LIPRF, GLYHGB #### [address] [address] Corset Fitter: Brandon Anaya MD NRBC Automated 0.0 per 100 WBC Normal 0.0 [facility] Comment on above: Performed By: #### C DP, CP, LIP, TROPI, LIPRF, GLYHGB #### [address] [address] Corset Fitter: Brandon Anaya MD Platelet mean volume (Bld) [Entitic vol] 10.6 fL Normal 8.1-13.5 [facility] Comment on above: Performed By: #### C DP, CP, LIP, TROPI, LIPRF, GLYHGB #### [address] [address] Corset Fitter: Brandon Anaya MD Platelets (Bld) [#/Vol] 241 10*3/uL Normal 138-453 [facility] Comment on above: Performed By: #### C DP, CP, LIP, TROPI, LIPRF, GLYHGB #### [address] [address] Corset Fitter: Brandon Anaya MD RBC (Bld) [#/Vol] 4.58 10*6/uL Normal 3.95-5.11 [facility] Comment on above: Performed By: #### C DP, CP, LIP, TROPI, LIPRF, GLYHGB #### [address] [address] Corset Fitter: Brandon Anaya MD RBC morphology finding Nom (Bld) ANISOCYTOSIS PRESENT Normal [facility] Comment on above: Performed By: #### C DP, CP, LIP, TROPI, LIPRF, GLYHGB #### [address] [address] Corset Fitter: Brandon Anaya MD WBC (Bld) [#/Vol] 10.6 10*3/uL Normal 3.5-11.3 [facility] Comment on above: Performed By: #### C DP, CP, LIP, TROPI, LIPRF, GLYHGB #### [address] [address] Corset Fitter: Brandon Anaya MD Auto Diff Performed NOT REPORTED Normal [facility] Comment on above: Performed By: #### C DP, CP, LIP, TROPI, LIPRF, GLYHGB #### [address] [place] [address] Corset Fitter: Brandon Anaya MD Platelets (Bld) [#/Vol] NOT REPORTED Normal [facility] Comment on above: Performed By: #### C DP, CP, LIP, TROPI, LIPRF, GLYHGB #### [facility] [employer] [address] [place], [place] [phone] Corset Fitter: Brandon Anaya MD WBC Morphology NOT REPORTED Normal [facility] Comment on above: Performed By: #### C DP, CP, LIP, TROPI, LIPRF, GLYHGB #### [facility] [employer] [address] [place] [address] Corset Fitter: Brandon Anaya MD MRI LUMBAR SPINE W WO RAINA STon 10-15-2019 No compression fract ure of [...] 2013; 10(10):789-794; J Vasc Surg. 2018; 67:2-77 [place] EXAMINATION: MRI OF THE LUMBAR SPINE [...] are intact. The neural foramina are intact. [facility] [place], [place], Mhpn Incoming Radiant Results From [employer] - 10/15/2019 11:11 PM EDT EXAMINATION: [...] 2013; 10(10):789-794; J Vasc Surg. 2018; 67:2-77 [place] MYCOPLASMA PNEUMONIAE ANTIBO DY, IGMon 10-15-2019 Mycoplasma pneumo IgM 0.12 <0.91 [place] Comment on above: Reference Range: <=0.90 Negative 0.91-1.09 Equivocal >=1.10 Positive Mycoplasma Ab, IgMon 020 Mycoplasma Ab, IgM 0.12 Normal <0.91 [facility] Comment on above: Result Comment: Reference Range: <=0.90 Negative 0.91-1.09 Equivocal >=1.10 Positive Performed By: #### C DP, CP, LIP, TROPI, LIPRF, GLYHGB #### [facility] [employer] [address] [place] [phone] Corset Fitter: Brandon Anaya MD POC Glucose Fingerstickon Glucose [Mass/Vol] 100 mg/dL 65 - 105 mg/dL [place] Glucose [Mass/Vol] 99 mg/dL 65 - 105 mg/dL [place] Glucose [Mass/Vol] 91 mg/dL 65 - 105 mg/dL [place] Glucose [Mass/Vol] 95 mg/dL 65 - 105 mg/dL [place] RENINon 10-15-2019 Renin Activity 0.1 ng/mL/hr [place] Comment on above: (NOTE) INTERPRETIVE INFORMATION: Renin Activity Adult, Normal sodium diet: Supine ................. 0.2-1.6 ng/mL/hr Upright ................ 0.5-4.0 ng/mL/hr Children, Normal sodium diet, Supine: [place] (1-7 days) ..... 2.0-35.0 ng/mL/hr Cord blood [...] angiotensinogen is decreased. See Compliance Statement D: [email or web address] Performed By: [facility] [address] [place] [id number] [employer]: Nik Rosas MD, MS Renin Comment NOT REPORTED [facility] Renin Activityon 10-15-2019 Renin Activity 0.1 ng/mL/hr Normal [facility] Comment on above: Result Comment: (NOT E) [...] angiotensinogen is decreased. See Compliance Statement D: [email or web address] Performed By: [facility] [address] [place] [id number] [employer]: Nik Rosas MD, MS Performed By: #### C DP, CP, LIP, TROPI, LIPRF, GLYHGB #### [place] [id number] [place] [address] Corset Fitter: Brandon Anaya MD ALDOSTERONEon 10-14-2019 Aldosterone 5 ng/dL [place] Comment on above: (NOTE) INTERPRETIVE INFORMATION: [...] reference intervals for this test in the [facility] Test Directory ([employer]). Performed By: [facility] [address] [place] [id number] [employer] Syrup: Nik Rosas MD, MS Aldosterone Comment NOT REPORTED [facility] 10-14-2019 Aldosterone 5.0 ng/dL Normal [facility] Comment on above: Result Comment: (NOT E) [...] reference intervals for this test in the [facility] ([employer]). Performed By: [facility] [address] [place] [id number] [employer] Syrup: Nik Rosas MD, MS Performed By: #### C DP, CP, LIP, TROPI, LIPRF, GLYHGB #### [place] [phone] Corset Fitter: Brandon Anaya MD Basic Metab w/rfx MGon 10-13 (cont.) Normal [facility] Comment on above: Result Comment: Aver age GFR for 70 or more years old: 75 mL/min/1.73sq m Chronic Kidney Disease: <60 mL/min/1.73sq m Kidney failure: <15 mL/min/1.73sq m eGFR calculated using average adult body mass. Additional eGFR calculator available at: http://www.[employer].BUILD/multiple_crcl_2011.htm Performed By: #### C DP, CP, LIP, TROPI, LIPRF, GLYHGB #### [place] [phone] Corset Fitter: Brandon Anaya MD Anion gap [Moles/Vol] 13 mmol/L Normal 9-17 [facility] Comment on above: Performed By: #### C DP, CP, LIP, TROPI, LIPRF, GLYHGB #### [address] [address] Corset Fitter: Brandon Anaya MD Calcium [Mass/Vol] 8.5 mg/dL Low 8.6-10.4 [facility] Comment on above: Performed By: #### C DP, CP, LIP, TROPI, LIPRF, GLYHGB #### [address] [address] Corset Fitter: Brandon Anaya MD Chloride [Moles/Vol] 91 mmol/L Low 98-107 [facility] Comment on above: Performed By: #### C DP, CP, LIP, TROPI, LIPRF, GLYHGB #### [address] [address] Corset Fitter: Brandon Anaya MD CO2 [Moles/Vol] 26 mmol/L Normal 20-31 [facility] Comment on above: Performed By: #### C DP, CP, LIP, TROPI, LIPRF, GLYHGB #### [address] [address] Corset Fitter: Brandon Anaya MD Creatinine [Mass/Vol] 0.48 mg/dL Low 0.50-0.90 [facility] Comment on above: Performed By: #### C DP, CP, LIP, TROPI, LIPRF, GLYHGB #### [address] [address] Corset Fitter: Brandon Anaya MD GFR, Amer >60 Normal >60 [facility] Comment on above: Performed By: #### C DP, CP, LIP, TROPI, LIPRF, GLYHGB #### [address] [address] Corset Fitter: Brandon Anaya MD GFR,non Amer >60 Normal >60 [facility] Comment on above: Performed By: #### C DP, CP, LIP, TROPI, LIPRF, GLYHGB #### [address] [address] Corset Fitter: Brandon Anaya MD Glucose [Mass/Vol] 104 mg/dL High 70-99 [facility] Comment on above: Performed By: #### C DP, CP, LIP, TROPI, LIPRF, GLYHGB #### [facility] [employer] [address] [place] [phone] Corset Fitter: Brandon Anaya MD Potassium [Moles/Vol] 3.7 mmol/L Normal 3.7-5.3 [facility] Comment on above: Performed By: #### C DP, CP, LIP, TROPI, LIPRF, GLYHGB #### [facility] [employer] [address] [place] [phone] Corset Fitter: Brandon Anaya MD Sodium [Moles/Vol] 130 mmol/L Low 135-144 [facility] Comment on above: Performed By: #### C DP, CP, LIP, TROPI, LIPRF, GLYHGB #### [address] [address] Corset Fitter: Brandon Anaya MD Urea nitrogen [Mass/Vol] 19 mg/dL Normal 8- [facility] Comment on above: Performed By: #### C DP, CP, LIP, TROPI, LIPRF, GLYHGB #### [address] [address] Corset Fitter: Brandon Anaya MD BUN/CRE Ratio NOT REPORTED Normal - [facility] Comment on above: Performed By: #### C DP, CP, LIP, TROPI, LIPRF, GLYHGB #### [facility] [employer] [address] [place] [phone] Corset Fitter: Brandon Anaya MD Staging: NOT REPORTED Normal [facility] Comment on above: Performed By: #### C DP, CP, LIP, TROPI, LIPRF, GLYHGB #### [facility] [employer] [address] [place] [phone] Corset Fitter: Brandon Anaya MD Basic Metabolic Panel w/ Ref kervin to MGon 10-14-2019 Anion gap [Moles/Vol] 13 mmol/L 9 - 17 mmol/L [place] Bun/Cre Ratio NOT REPORTED [place] Calcium [Mass/Vol] 8.5 mg/dL Low 8.6 - 10. 4 mg/dL [place] Chloride [Moles/Vol] 91 mmol/L Low 98 - 10 7 mmol/L [place] CO2 [Moles/Vol] 26 mmol/L 20 - 31 mmol/L [place] Creatinine [Mass/Vol] 0.48 mg/dL Low 0.5 - 0.9 mg/dL [place] GFR >60 >60 mL/min [place] GFR Non- >60 >60 mL/min [place] GFR/1.73 sq M predicted among non-blacks MDRD (S/P/Bld) [Vol rate/Area] [place] Comment on above: Average GFR for 70 o r more years old: 75 mL/min/1.73sq m Chronic Kidney Disease: <60 mL/min/1.73sq m Kidney failure: <15 mL/min/1.73sq m eGFR calculated using average adult body mass. Additional eGFR calculator available at: http://www.[employer]/multiple_crcl_2012.htm GFR/1.73 sq M predicted among non-blacks MDRD (S/P/Bld) [Vol rate/Area] NOT REPORTED [place] Glucose [Mass/Vol] 104 mg/dL High 70 - 99 mg/dL [place] Interpretation and review of laboratory results Abnormal [place] Potassium [Moles/Vol] 3.7 mmol/L 3.7 - 5.3 mmol/L [place] Sodium [Moles/Vol] 130 mmol/L Low 135 - 144 mmol/L [place] Urea nitrogen [Mass/Vol] 19 mg/dL 8 - 23 mg/dL [place] CBC auto differentialon 08-2 Atypical Lymphocytes 3 % [place] Atypical Lymphocytes Absolute 0.30 k/uL [place] Basophils (Bld) [#/Vol] 0.00 10*3/uL [place] Basophils/100 WBC (Bld) 0 % 0 - 2 % [place] Differential Type NOT REPORTED [place] Eosinophils (Bld) [#/Vol] 0.10 10*3/uL [place] Eosinophils/100 WBC (Bld) 1 % 1 - 4 % [place] Erythrocyte distribution width (RBC) [Ratio] 14.7 % High 11.8 - 14.4 % [place] Hematocrit (Bld) [Volume fraction] 39.5 % 36.3 - 47.1 % [place] Hemoglobin (Bld) [Mass/Vol] 12.9 g/dL 11.9 - 15.1 g/dL [place] Immature granulocytes (Bld) [#/Vol] 0.10 10*3/uL [place] Immature granulocytes (Bld) [#/Vol] 1 % High 0 [place] Interpretation and review of laboratory results Abnormal [place] Lymphocytes (Bld) [#/Vol] 2.80 10*3/uL [place] Lymphocytes/100 WBC (Bld) 28 % 24 - 44 % [place] MCH (RBC) [Entitic mass] 29.5 pg 25.2 - 33.5 pg [place] MCHC (RBC) [Mass/Vol] 32.7 g/dL 28.4 - 34.8 g/dL [place] MCV (RBC) [Entitic vol] 90.2 fL 82.6 - 102.9 fL [place] Monocytes (Bld) [#/Vol] 0.50 10*3/uL [place] Monocytes/100 WBC (Bld) 5 % 1 - 7 % [place] Morphology Alfredo (Bld) [Interp] ANISOCYTOSIS PRESENT [place] Platelet mean volume (Bld) [Entitic vol] 10.1 fL 8.1 - 13.5 fL [place] Platelets (Bld) [#/Vol] 190 10*3/uL [place] Platelets (Bld) [#/Vol] NOT REPORTED [place] RBC (Bld) [#/Vol] 4.38 10*6/uL 3.95 - 5.1 1 m/uL [place] RBC morphology finding Nom (Bld) NOT REPORTED [place] Segmented neutrophils/100 WBC (Bld) 62 % 36 - 66 % [place] Segs Absolute 6.20 [place] WBC (Bld) [#/Vol] 10.0 10*3/uL [place] WBC (Bld) [#/Vol] 0.0 10*3/uL 0.0 per 10 0 WBC [place] WBC Morphology NOT REPORTED [place] CBC with Diffon 10-14-2019 Abs. Atypical Lymphs 0.30 k/uL Normal [facility] Comment on above: Performed By: #### C DP, CP, LIP, TROPI, LIPRF, GLYHGB #### [facility] [employer] [address] [place] [address] Corset Fitter: Brandon Anaya MD Abs. Basophil 0.00 k/uL Normal 0.0-0.2 [facility] Comment on above: Performed By: #### C DP, CP, LIP, TROPI, LIPRF, GLYHGB #### [facility] [employer] [address] [place] [address] [phone] Corset Fitter: Brandon Anaya MD Abs.Imm.Granulocyte 0.10 k/uL Normal 0.00-0.30 [facility] Comment on above: Performed By: #### C DP, CP, LIP, TROPI, LIPRF, GLYHGB #### [facility] [employer] [address] [place] [phone] Corset Fitter: Brandon Anaya MD Abs.Neutrophil (Seg) 6.20 k/uL Normal 1.8-7.7 [facility] Comment on above: Performed By: #### C DP, CP, LIP, TROPI, LIPRF, GLYHGB #### [address] [address] Corset Fitter: Brandon Anaya MD Atypical Lymphs 3 % Normal [facility] Comment on above: Performed By: #### C DP, CP, LIP, TROPI, LIPRF, GLYHGB #### [address] [address] Corset Fitter: Brandon Anaya MD Basophils/100 WBC (Bld) 0 % Normal 0-2 [facility] Comment on above: Performed By: #### C DP, CP, LIP, TROPI, LIPRF, GLYHGB #### [address] [address] Corset Fitter: Brandon Anaya MD Eosinophils (Bld) [#/Vol] 0.10 10*3/uL Normal 0.0-0.4 [facility] Comment on above: Performed By: #### C DP, CP, LIP, TROPI, LIPRF, GLYHGB #### [address] [address] Corset Fitter: Brandon Anaya MD Eosinophils/100 WBC (Bld) 1 % Normal 1-4 [facility] Comment on above: Performed By: #### C DP, CP, LIP, TROPI, LIPRF, GLYHGB #### [place] [address] Corset Fitter: Brandon Anaya MD Immature granulocytes (Bld) [#/Vol] 1 % High 0 [facility] Comment on above: Performed By: #### C DP, CP, LIP, TROPI, LIPRF, GLYHGB #### [address] [address] Corset Fitter: Brandon Anaya MD Lymphocytes (Bld) [#/Vol] 2.80 10*3/uL Normal 1.0-4.8 [facility] Comment on above: Performed By: #### C DP, CP, LIP, TROPI, LIPRF, GLYHGB #### [address] [address] Corset Fitter: Brandon Anaya MD Lymphocytes/100 WBC (Bld) 28 % Normal 24-44 [facility] Comment on above: Performed By: #### C DP, CP, LIP, TROPI, LIPRF, GLYHGB #### [address] [address] Corset Fitter: Brandon Anaya MD Monocytes (Bld) [#/Vol] 0.50 10*3/uL Normal 0.1-0.8 [facility] Comment on above: Performed By: #### C DP, CP, LIP, TROPI, LIPRF, GLYHGB #### [address] [address] Corset Fitter: Brandon Anaya MD Monocytes/100 WBC (Bld) 5 % Normal 1-7 [facility] Comment on above: Performed By: #### C DP, CP, LIP, TROPI, LIPRF, GLYHGB #### [address] [address] Corset Fitter: Brandon Anaya MD Morphology Alfredo (Bld) [Interp] ANISOCYTOSIS PRESENT Normal [facility] Comment on above: Performed By: #### C DP, CP, LIP, TROPI, LIPRF, GLYHGB #### [address] [address] Corset Fitter: Brandon Anaya MD Neutrophil (Seg) 62 % Normal 36-66 [facility] Comment on above: Performed By: #### C DP, CP, LIP, TROPI, LIPRF, GLYHGB #### [address] [address] Corset Fitter: Brandon Anaya MD Erythrocyte distribution width (RBC) [Ratio] 14.7 % High 11.8-14.4 [facility] Comment on above: Performed By: #### C DP, CP, LIP, TROPI, LIPRF, GLYHGB #### [address] [address] Corset Fitter: Brandon Anaya MD Hematocrit (Bld) [Volume fraction] 39.5 % Normal 36.3-47.1 [facility] Comment on above: Performed By: #### C DP, CP, LIP, TROPI, LIPRF, GLYHGB #### [place] [address] Corset Fitter: Brandon Anaya MD Hemoglobin (Bld) [Mass/Vol] 12.9 g/dL Normal 11.9-15.1 [facility] Comment on above: Performed By: #### C DP, CP, LIP, TROPI, LIPRF, GLYHGB #### [place] [address] Corset Fitter: Brandon Anaya MD MCH (RBC) [Entitic mass] 29.5 pg Normal 25.2-33.5 [facility] Comment on above: Performed By: #### C DP, CP, LIP, TROPI, LIPRF, GLYHGB #### [place] [address] Corset Fitter: Brandon Anaya MD MCHC (RBC) [Mass/Vol] 32.7 g/dL Normal 28.4-34.8 [facility] Comment on above: Performed By: #### C DP, CP, LIP, TROPI, LIPRF, GLYHGB #### [address] [address] Corset Fitter: Brandon Anaya MD MCV (RBC) [Entitic vol] 90.2 fL Normal 82.6-102.9 [facility] Comment on above: Performed By: #### C DP, CP, LIP, TROPI, LIPRF, GLYHGB #### [address] [address] Corset Fitter: Brandon Anaya MD NRBC Automated 0.0 per 100 WBC Normal 0.0 [facility] Comment on above: Performed By: #### C DP, CP, LIP, TROPI, LIPRF, GLYHGB #### [address] [address] Corset Fitter: Brandon Anaya MD Platelet mean volume (Bld) [Entitic vol] 10.1 fL Normal 8.1-13.5 [facility] Comment on above: Performed By: #### C DP, CP, LIP, TROPI, LIPRF, GLYHGB #### [place] [address] Corset Fitter: Brandon Anyaa MD Platelets (Bld) [#/Vol] 190 10*3/uL Normal 138-453 [facility] Comment on above: Performed By: #### C DP, CP, LIP, TROPI, LIPRF, GLYHGB #### [address] [address] Corset Fitter: Brandon Anaya MD RBC (Bld) [#/Vol] 4.38 10*6/uL Normal 3.95-5.11 [facility] Comment on above: Performed By: #### C DP, CP, LIP, TROPI, LIPRF, GLYHGB #### [address] [address] Corset Fitter: Brandon Anaya MD WBC (Bld) [#/Vol] 10.0 10*3/uL Normal 3.5-11.3 [facility] Comment on above: Performed By: #### C DP, CP, LIP, TROPI, LIPRF, GLYHGB #### [address] [address] Corset Fitter: Brandon Anaya MD Auto Diff Performed NOT REPORTED Normal [facility] Comment on above: Performed By: #### C DP, CP, LIP, TROPI, LIPRF, GLYHGB #### [facility] [address] [place] [phone] Corset Fitter: Brandon Anaya MD Platelets (Bld) [#/Vol] NOT REPORTED Normal [facility] Comment on above: Performed By: #### C DP, CP, LIP, TROPI, LIPRF, GLYHGB #### [facility] [address] [place] [phone] Corset Fitter: Brandon Anaya MD RBC morphology finding Nom (Bld) NOT REPORTED Normal [facility] Comment on above: Performed By: #### C DP, CP, LIP, TROPI, LIPRF, GLYHGB #### [facility] [address] [place] [phone] Corset Fitter: Brandon Anaya MD WBC Morphology NOT REPORTED Normal [facility] Comment on above: Performed By: #### C DP, CP, LIP, TROPI, LIPRF, GLYHGB #### [facility] [address] [place] [phone] Corset Fitter: Brandon Anaya MD METANEPHRINES PLASMA FREEon 10-14-2019 Metaneph/Plasma Interp See Note [facility], [place] Comment on above: (NOTE) INTERPRETIVE [...] should be considered. See Compliance Statement B: [employer] Performed By: [facility] [address] [place] [id number] Cooker Syrup: Nik Rosas MD, MS Metanephrine 0.14 nmol/L 0 - 0.49 nmol/L [facility] Normetanephrine 0.73 nmol/L 0 - 0.89 nmol/L [facility] Metanephrine, Plasmaon 10-13 Metaneph Interp See Note Normal [facility] Comment on above: Result Comment: (NOT E) [...] should be considered. See Compliance Statement B: [employer] Performed By: [facility] [address] [place] [id number] [employer]er Syrup: Nik Rosas MD, MS Performed By: #### C DP, CP, LIP, TROPI, LIPRF, GLYHGB #### [employer] [facility] [place], [place] [phone] Corset Fitter: Brandon Anaya MD Metanephrine 0.14 nmol/L Normal 0.00-0.49 [facility] Comment on above: Performed By: #### C DP, CP, LIP, TROPI, LIPRF, GLYHGB #### [employer] [facility] [place], [place] [phone] Corset Fitter: Brandon Anaya MD Normetanephrine 0.73 nmol/L Normal 0.00-0.89 [facility] Comment on above: Performed By: #### C DP, CP, LIP, TROPI, LIPRF, GLYHGB #### [employer] [facility] [place], [place] [phone] Corset Fitter: Brandon Anaya MD POC Glucose Fingerstickon Glucose [Mass/Vol] 86 mg/dL 65 - 105 mg/dL [place] Glucose [Mass/Vol] 105 mg/dL 65 - 105 mg/dL [place] Glucose [Mass/Vol] 159 mg/dL High 65 - 105 mg/dL [place] Interpretation and review of laboratory results Abnormal [place] Glucose [Mass/Vol] 113 mg/dL High 65 - 105 mg/dL [place] Interpretation and review of laboratory results Abnormal [place] T. pallidum Abon 10-14-2019 T. pallidum, IgG NONREACTIVE NONREACTIVE [place] Comment on above: T. pallidum antibodies are not detected. There is no serological evidence of infection with T. pallidum (early primary syphilis cannot be excluded). Retest in 2-4 weeks if syphilis is clinically suspect. T.pallidum Ab Screenon 10-13 T.pallidum Ab Screen NONREACTIVE Normal NR [facility] Comment on above: Result Comment: T. pallidum antibodies are not detected. There is no serological evidence of infection with T. pallidum (early primary syphilis cannot be excluded). Retest in 2-4 weeks if syphilis is clinically suspect. Performed By: #### C DP, CP, LIP, TROPI, LIPRF, GLYHGB #### [facility] [address] [place] [address] [phone] Corset Fitter: Brandon Anaya MD AMMONIAon 10-13-2019 Ammonia (P) [Mass/Vol] 28 umol/L 11 - 51 umol/L [place] Ammoniaon 10-13-2019 Ammonia (P) [Mass/Vol] 28 umol/L Normal 11-51 [facility] Comment on above: Performed By: #### C DP, CP, LIP, TROPI, LIPRF, GLYHGB #### [facility] [address] [place] [address] Corset Fitter: Brandon Anaya MD BLOOD GAS, VENOUSon 10-13-19 20 Andrés Test NOT REPORTED [facility] [place] aPTT Coag (Bld) [Time] 37.0 s [place] Carboxyhemoglobin 1.3 % 0 - 5 % [place] Comment on above: Reference Range: Non-Smokers 0-2% Average Smoker 2-4% Heavy Smoker <10% FIO2 ROOM AIR [facility] [place] HCO3, Venous 28.4 mmol/L 24 - 30 mmol/L [place] Interpretation and review of laboratory results Abnormal [place] Methemoglobin NOT REPORTED 0 - 1.5 % [facility] [place] Mode NOT REPORTED [facility] [place] Negative Base Excess, Noah NOT REPORTED 0 - 2 mmol/L [facility] NOTIFICATION NOT REPORTED [facility] [place] NOTIFICATION TIME NOT REPORTED [facility] [place] O2 Device/Flow/% NOT REPORTED [place] Oxygen saturation in Blood 78.1 % 60 - 85 % [place] Oxyhemoglobin NOT REPORTED 95 - 98 % [place] pCO2, Noah 42.6 [place] pCO2, Noah, Temp Adj NOT REPORTED [place] Peep/Cpap NOT REPORTED [place] pH, Noah 7.439 High [place] pH, Noah, Temp Adj NOT REPORTED [place] pO2, Noah 41.1 [facility] [place] pO2, Noah, Temp Adj NOT REPORTED [facility] [place] Positive Base Excess, Noah 4.2 mmol/L High 0 - 2 mmol/L [facility] PSV NOT REPORTED [facility] [place] Pt. Position NOT REPORTED [facility] [place] Sample Site NOT REPORTED [facility] [place] Set Rate NOT REPORTED [facility] [place] Text for Respiratory NOT REPORTED [facility], [place] Total Hb NOT REPORTED 12 - 16 g/dl [place] Total Rate NOT REPORTED [place] VT NOT REPORTED [place] Basic Metab w/rfx MGon 10-12 Potassium [Moles/Vol] 3.4 mmol/L Low 3.7-5.3 [facility] Comment on above: Performed By: #### C DP, CP, LIP, TROPI, LIPRF, GLYHGB #### [facility] [employer] [address] [place] [address] [phone] Corset Fitter: Brandon Anaya MD (cont.) [facility] Comment on above: Result Comment: Aver age GFR for 70 or more years old: 75 mL/min/1.73sq m Chronic Kidney Disease: <60 mL/min/1.73sq m Kidney failure: <15 mL/min/1.73sq m eGFR calculated using average adult body mass. Additional eGFR calculator available at: http://www.Flicstart/multiple_crcl_2012.htm Performed By: #### C DP, CP, LIP, TROPI, LIPRF, GLYHGB #### [facility] [employer] [address] [place] [address] [phone] Corset Fitter: Brandon Anaya MD Anion gap [Moles/Vol] 16 mmol/L Normal 9-17 [facility] Comment on above: Performed By: #### C DP, CP, LIP, TROPI, LIPRF, GLYHGB #### [facility] [employer] [address] [place] [address] [phone] Corset Fitter: Brandon Anaya MD Calcium [Mass/Vol] 9.0 mg/dL Normal 8.6-10.4 [facility] Comment on above: Performed By: #### C DP, CP, LIP, TROPI, LIPRF, GLYHGB #### [facility] [employer] [address] [place] [address] [phone] Corset Fitter: Brandon Anaya MD Chloride [Moles/Vol] 90 mmol/L Low 98-107 [facility] Comment on above: Performed By: #### C DP, CP, LIP, TROPI, LIPRF, GLYHGB #### [facility] [address] [place] [phone] Corset Fitter: Brandon Anaya MD CO2 [Moles/Vol] 25 mmol/L Normal 20-31 [facility] Comment on above: Performed By: #### C DP, CP, LIP, TROPI, LIPRF, GLYHGB #### [facility] [address] [place] [phone] Corset Fitter: Brandon Anaya MD Creatinine [Mass/Vol] 0.47 mg/dL Low 0.50-0.90 [facility] Comment on above: Performed By: #### C DP, CP, LIP, TROPI, LIPRF, GLYHGB #### [facility] [employer] [address] [place] [phone] Corset Fitter: Brandon Anaya MD GFR, Amer >60 Normal >60 [facility] Comment on above: Performed By: #### C DP, CP, LIP, TROPI, LIPRF, GLYHGB #### [facility] [employer] [address] [place] [phone] Corset Fitter: Brandon Anaya MD GFR,non Amer >60 Normal >60 [facility] Comment on above: Performed By: #### C DP, CP, LIP, TROPI, LIPRF, GLYHGB #### [facility] [address] [place] [phone] Corset Fitter: Brandon Anaya MD Glucose [Mass/Vol] 113 mg/dL High 70-99 [facility] Comment on above: Performed By: #### C DP, CP, LIP, TROPI, LIPRF, GLYHGB #### [facility] [employer] [address] [place] [phone] Corset Fitter: Brandon Anaya MD Sodium [Moles/Vol] 131 mmol/L Low 135-144 [facility] Comment on above: Performed By: #### C DP, CP, LIP, TROPI, LIPRF, GLYHGB #### [facility] [employer] [address] [place], [place] [phone] Corset Fitter: Brandon Anaya MD Urea nitrogen [Mass/Vol] 16 mg/dL Normal 8- [facility] Comment on above: Performed By: #### C DP, CP, LIP, TROPI, LIPRF, GLYHGB #### [facility] [employer] [address] [place], [place] [phone] Corset Fitter: Brandon Anaya MD BUN/CRE Ratio NOT REPORTED Normal - [facility] Comment on above: Performed By: #### C DP, CP, LIP, TROPI, LIPRF, GLYHGB #### [facility] [employer] [address] [place], [place] [phone] Corset Fitter: Brandon Anaya MD Staging: NOT REPORTED Normal [facility] Comment on above: Performed By: #### C DP, CP, LIP, TROPI, LIPRF, GLYHGB #### [facility] [address] [place], [place] [phone] Corset Fitter: Brandon Anaya MD Basic Metabolic Panel w/ Ref kervin to MGon 10-13-2019 Anion gap [Moles/Vol] 16 mmol/L 9 - 17 mmol/L [place] Bun/Cre Ratio NOT REPORTED [place] Calcium [Mass/Vol] 9.0 mg/dL 8.6 - 10. 4 mg/dL [place] Chloride [Moles/Vol] 90 mmol/L Low 98 - 10 7 mmol/L [place] CO2 [Moles/Vol] 25 mmol/L 20 - 31 mmol/L [place] Creatinine [Mass/Vol] 0.47 mg/dL Low 0.5 - 0.9 mg/dL [place] GFR >60 >60 mL/min [place] GFR Non- >60 >60 mL/min [place] GFR/1.73 sq M predicted among non-blacks MDRD (S/P/Bld) [Vol rate/Area] NOT REPORTED [place] GFR/1.73 sq M predicted among non-blacks MDRD (S/P/Bld) [Vol rate/Area] [place] Comment on above: Average GFR for 70 o r more years old: 75 mL/min/1.73sq m Chronic Kidney Disease: <60 mL/min/1.73sq m Kidney failure: <15 mL/min/1.73sq m eGFR calculated using average adult body mass. Additional eGFR calculator available at: http://www.Flicstart/multiple_crcl_2012.htm Glucose [Mass/Vol] 113 mg/dL High 70 - 99 mg/dL [place] Interpretation and review of laboratory results Abnormal [place] Potassium [Moles/Vol] 3.4 mmol/L Low 3.7 - 5.3 mmol/L [place] Sodium [Moles/Vol] 131 mmol/L Low 135 - 144 mmol/L [place] Urea nitrogen [Mass/Vol] 16 mg/dL 8 - 23 mg/dL [place] CBC auto differentialon 09-24 Basophils (Bld) [#/Vol] 0.07 10*3/uL [place] Basophils/100 WBC (Bld) 1 % 0 - 2 % [place] Differential Type NOT REPORTED [place] Eosinophils (Bld) [#/Vol] 10*3/uL [place] Eosinophils/100 WBC (Bld) 0 % Low 1 - 4 % [place] Erythrocyte distribution width (RBC) [Ratio] 15.0 % High 11.8 - 14.4 % [place] Hematocrit (Bld) [Volume fraction] 45.5 % 36.3 - 47.1 % [place] Hemoglobin (Bld) [Mass/Vol] 14.5 g/dL 11.9 - 15.1 g/dL [place] Immature granulocytes (Bld) [#/Vol] 0.14 10*3/uL [place] Immature granulocytes (Bld) [#/Vol] 1 % High 0 [place] Interpretation and review of laboratory results Abnormal [place] Lymphocytes (Bld) [#/Vol] 2.84 10*3/uL [place] Lymphocytes/100 WBC (Bld) 23 % Low 24 - 43 % [place] MCH (RBC) [Entitic mass] 29.8 pg 25.2 - 33.5 pg [place] MCHC (RBC) [Mass/Vol] 31.9 g/dL 28.4 - 34.8 g/dL [place] MCV (RBC) [Entitic vol] 93.4 fL 82.6 - 102.9 fL [place] Monocytes (Bld) [#/Vol] 1.22 10*3/uL [place] Monocytes/100 WBC (Bld) 10 % 3 - 12 % [place] Platelet mean volume (Bld) [Entitic vol] 10.5 fL 8.1 - 13.5 fL [place] Platelets (Bld) [#/Vol] NOT REPORTED [place] Platelets (Bld) [#/Vol] 210 10*3/uL [place] RBC (Bld) [#/Vol] 4.87 10*6/uL 3.95 - 5.1 1 m/uL [place] RBC morphology finding Nom (Bld) ANISOCYTOSIS PRESENT [place] Segmented neutrophils/100 WBC (Bld) 65 % 36 - 65 % [place] Segs Absolute 8.01 [place] WBC (Bld) [#/Vol] 12.3 10*3/uL [place] WBC (Bld) [#/Vol] 0.0 10*3/uL 0.0 per 10 0 WBC [place] WBC Morphology NOT REPORTED [place] CBC with Diffon 10-13-2019 Abs. Basophil 0.07 k/uL Normal 0.00-0.20 [facility] Comment on above: Performed By: #### C DP, CP, LIP, TROPI, LIPRF, GLYHGB #### [address] [address] Corset Fitter: Brandon Anaya MD Abs.Imm.Granulocyte 0.14 k/uL Normal 0.00-0.30 [facility] Comment on above: Performed By: #### C DP, CP, LIP, TROPI, LIPRF, GLYHGB #### [place] [address] Corset Fitter: Brandon Anaya MD Abs.Neutrophil (Seg) 8.01 k/uL Normal 1.50-8.10 [facility] Comment on above: Performed By: #### C DP, CP, LIP, TROPI, LIPRF, GLYHGB #### [place] [address] Corset Fitter: Brandon Anaya MD Basophils/100 WBC (Bld) 1 % Normal 0-2 [facility] Comment on above: Performed By: #### C DP, CP, LIP, TROPI, LIPRF, GLYHGB #### [place] [address] Corset Fitter: Brandon Anaya MD Eosinophils (Bld) [#/Vol] 10*3/uL Normal 0.00-0.44 [facility] Comment on above: Performed By: #### C DP, CP, LIP, TROPI, LIPRF, GLYHGB #### [place] [address] Corset Fitter: Brandon Anaya MD Eosinophils/100 WBC (Bld) 0 % Low 1-4 [facility] Comment on above: Performed By: #### C DP, CP, LIP, TROPI, LIPRF, GLYHGB #### [address] [address] Corset Fitter: Brandon Anaya MD Erythrocyte distribution width (RBC) [Ratio] 15.0 % High 11.8-14.4 [facility] Comment on above: Performed By: #### C DP, CP, LIP, TROPI, LIPRF, GLYHGB #### [address] [address] Corset Fitter: Brandon Anaya MD Hematocrit (Bld) [Volume fraction] 45.5 % Normal 36.3-47.1 [facility] Comment on above: Performed By: #### C DP, CP, LIP, TROPI, LIPRF, GLYHGB #### [address] [address] Corset Fitter: Brandon Anaya MD Hemoglobin (Bld) [Mass/Vol] 14.5 g/dL Normal 11.9-15.1 [facility] Comment on above: Performed By: #### C DP, CP, LIP, TROPI, LIPRF, GLYHGB #### [address] [address] Corset Fitter: Brandon Anaya MD Immature granulocytes (Bld) [#/Vol] 1 % High 0 [facility] Comment on above: Performed By: #### C DP, CP, LIP, TROPI, LIPRF, GLYHGB #### [address] [address] Corset Fitter: Brandon Anaya MD Lymphocytes (Bld) [#/Vol] 2.84 10*3/uL Normal 1.10-3.70 [facility] Comment on above: Performed By: #### C DP, CP, LIP, TROPI, LIPRF, GLYHGB #### [address] [address] Corset Fitter: Brandon Anaya MD Lymphocytes/100 WBC (Bld) 23 % Low 24-43 [facility] Comment on above: Performed By: #### C DP, CP, LIP, TROPI, LIPRF, GLYHGB #### [address] [address] Corset Fitter: Brandon Anaya MD MCH (RBC) [Entitic mass] 29.8 pg Normal 25.2-33.5 [facility] Comment on above: Performed By: #### C DP, CP, LIP, TROPI, LIPRF, GLYHGB #### [address] [address] Corset Fitter: Brandon Anaya MD MCHC (RBC) [Mass/Vol] 31.9 g/dL Normal 28.4-34.8 [facility] Comment on above: Performed By: #### C DP, CP, LIP, TROPI, LIPRF, GLYHGB #### [place] [address] Corset Fitter: Brandon Anaya MD MCV (RBC) [Entitic vol] 93.4 fL Normal 82.6-102.9 [facility] Comment on above: Performed By: #### C DP, CP, LIP, TROPI, LIPRF, GLYHGB #### [place] [address] Corset Fitter: Brandon Anaya MD Monocytes (Bld) [#/Vol] 1.22 10*3/uL High 0.10-1.20 [facility] Comment on above: Performed By: #### C DP, CP, LIP, TROPI, LIPRF, GLYHGB #### [address] [address] Corset Fitter: Brandon Anaya MD Monocytes/100 WBC (Bld) 10 % Normal 3-12 [facility] Comment on above: Performed By: #### C DP, CP, LIP, TROPI, LIPRF, GLYHGB #### [address] [address] Corset Fitter: Brandon Anaya MD Neutrophil (Seg) 65 % Normal 36-65 [facility] Comment on above: Performed By: #### C DP, CP, LIP, TROPI, LIPRF, GLYHGB #### [address] [address] Corset Fitter: Brandon Anaya MD NRBC Automated 0.0 per 100 WBC Normal 0.0 [facility] Comment on above: Performed By: #### C DP, CP, LIP, TROPI, LIPRF, GLYHGB #### [address] [address] Corset Fitter: Brandon Anaya MD Platelet mean volume (Bld) [Entitic vol] 10.5 fL Normal 8.1-13.5 [facility] Comment on above: Performed By: #### C DP, CP, LIP, TROPI, LIPRF, GLYHGB #### [address] [address] Corset Fitter: Brandon Anaya MD Platelets (Bld) [#/Vol] 210 10*3/uL Normal 138-453 [facility] Comment on above: Performed By: #### C DP, CP, LIP, TROPI, LIPRF, GLYHGB #### [address] [address] Corset Fitter: Brandon Anaya MD RBC (Bld) [#/Vol] 4.87 10*6/uL Normal 3.95-5.11 [facility] Comment on above: Performed By: #### C DP, CP, LIP, TROPI, LIPRF, GLYHGB #### [address] [address] Corset Fitter: Brandon Anaya MD RBC morphology finding Nom (Bld) ANISOCYTOSIS PRESENT Normal [facility] Comment on above: Performed By: #### C DP, CP, LIP, TROPI, LIPRF, GLYHGB #### [address] [id number] Corset Fitter: Brandon Anaya MD WBC (Bld) [#/Vol] 12.3 10*3/uL High 3.5-11.3 [facility] Comment on above: Performed By: #### C DP, CP, LIP, TROPI, LIPRF, GLYHGB #### [address] [address] Corset Fitter: Brandon Anaya MD Auto Diff Performed NOT REPORTED Normal [facility] Comment on above: Performed By: #### C DP, CP, LIP, TROPI, LIPRF, GLYHGB #### [address] [address] Corset Fitter: Brandon Anaya MD Platelets (Bld) [#/Vol] NOT REPORTED Normal [facility] Comment on above: Performed By: #### C DP, CP, LIP, TROPI, LIPRF, GLYHGB #### [address] [address] Corset Fitter: Brandon Anaya MD WBC Morphology NOT REPORTED Normal [facility] Comment on above: Performed By: #### C DP, CP, LIP, TROPI, LIPRF, GLYHGB #### [address] [address] Corset Fitter: Brandon Anaya MD Magnesiumon 10-13-2019 Magnesium [Mass/Vol] 2.2 mg/dL Normal 1.6-2.6 [facility] Comment on above: Performed By: #### C DP, CP, LIP, TROPI, LIPRF, GLYHGB #### [address] [address] Corset Fitter: Brandon Anaya MD Magnesium [Mass/Vol] 2.2 mg/dL 1.6 - 2 .6 mg/dL [place] POC Glucose Fingerstickon Glucose [Mass/Vol] 121 mg/dL High 65 - 105 mg/dL [place] Interpretation and review of laboratory results Abnormal [place] Glucose [Mass/Vol] 100 mg/dL 65 - 105 mg/dL [place] Glucose [Mass/Vol] 104 mg/dL 65 - 105 mg/dL [place] Glucose [Mass/Vol] 123 mg/dL High 65 - 105 mg/dL [place] Interpretation and review of laboratory results Abnormal [place] Venous Blood Gaseson 020 Body Temp. 37.0 Normal [facility] Comment on above: Performed By: #### C DP, CP, LIP, TROPI, LIPRF, GLYHGB #### [place] [id number] Corset Fitter: Brandon Anaya MD Carboxy Hgb 1.3 % Normal 0-5 [facility] Comment on above: Result Comment: Reference Range: Non-Smokers 0-2% Average Smoker 2-4% Heavy Smoker <10% Performed By: #### C DP, CP, LIP, TROPI, LIPRF, GLYHGB #### [address] [phone] Corset Fitter: Brandon Anaya MD FIO2 ROOM AIR Normal [facility] Comment on above: Performed By: #### C DP, CP, LIP, TROPI, LIPRF, GLYHGB #### [facility] [employer] [address] [place] [phone] Corset Fitter: Brandon Anaya MD HCO3 (Bld) [Moles/Vol] 28.4 mmol/L Normal 24-30 [facility] Comment on above: Performed By: #### C DP, CP, LIP, TROPI, LIPRF, GLYHGB #### [address] [address] Corset Fitter: Brandon Anaya MD Oxygen (Bld) [Partial pressure] 41.1 mm[Hg] Normal 30-50 [facility] Comment on above: Performed By: #### C DP, CP, LIP, TROPI, LIPRF, GLYHGB #### [address] [address] Corset Fitter: Brandon Anaya MD Oxygen saturation in Blood 78.1 % Normal 60.0-85.0 [facility] Comment on above: Performed By: #### C DP, CP, LIP, TROPI, LIPRF, GLYHGB #### [address] [address] Corset Fitter: Brandon Anaya MD pCO2 42.6 Normal 39-55 [facility] Comment on above: Performed By: #### C DP, CP, LIP, TROPI, LIPRF, GLYHGB #### [address] [address] Corset Fitter: Brandon Anaya MD pH (Bld) 7.439 [pH] High 7.320-7.420 [facility] Comment on above: Performed By: #### C DP, CP, LIP, TROPI, LIPRF, GLYHGB #### [address] [address] Corset Fitter: Brandon Anaya MD Positive Base Excess 4.2 mmol/L High 0.0-2.0 [facility] Comment on above: Performed By: #### C DP, CP, LIP, TROPI, LIPRF, GLYHGB #### [address] [address] Corset Fitter: Brandon Anaya MD Andrés Test NOT REPORTED Normal [facility] Comment on above: Performed By: #### C DP, CP, LIP, TROPI, LIPRF, GLYHGB #### [facility] [address] [place] [phone] Corset Fitter: Brandon Anaya MD Methemoglobin NOT REPORTED Normal 0.0-1.5 [facility] Comment on above: Performed By: #### C DP, CP, LIP, TROPI, LIPRF, GLYHGB #### [facility] [address] [place] [phone] Corset Fitter: Brandon Anaya MD Mode NOT REPORTED Normal [facility] Comment on above: Performed By: #### C DP, CP, LIP, TROPI, LIPRF, GLYHGB #### [address] [address] Corset Fitter: Brandon Anaya MD Negative Base Excess NOT REPORTED Normal 0.0-2.0 [facility] Comment on above: Performed By: #### C DP, CP, LIP, TROPI, LIPRF, GLYHGB #### [address] [address] Corset Fitter: Brandon Anaya MD Notification Time NOT REPORTED Normal [facility] Comment on above: Performed By: #### C DP, CP, LIP, TROPI, LIPRF, GLYHGB #### [address] [address] Corset Fitter: Brandon Anaya MD Notification: NOT REPORTED Normal [facility] Comment on above: Performed By: #### C DP, CP, LIP, TROPI, LIPRF, GLYHGB #### [address] [address] Corset Fitter: Brandon Anaya MD O2 Device/Flow/% NOT REPORTED Normal [facility] Comment on above: Performed By: #### C DP, CP, LIP, TROPI, LIPRF, GLYHGB #### [facility] [employer] [address] [place] [phone] Corset Fitter: Brandon Anaya MD Oxyhemoglobin NOT REPORTED Normal 95.0-98.0 [facility] Comment on above: Performed By: #### C DP, CP, LIP, TROPI, LIPRF, GLYHGB #### [address] [address] Corset Fitter: Brandon Anaya MD Pco2 Adj'd for Temp. NOT REPORTED Normal 39-55 Me [facility] Comment on above: Performed By: #### C DP, CP, LIP, TROPI, LIPRF, GLYHGB #### [address] [address] Corset Fitter: Brandon Anaya MD PEEP/CPAP NOT REPORTED Normal [facility] Comment on above: Performed By: #### C DP, CP, LIP, TROPI, LIPRF, GLYHGB #### [address] [address] Corset Fitter: Brandon Anaya MD pH Adjst'd for Temp. NOT REPORTED Normal 7.320-7.420 [facility] Comment on above: Performed By: #### C DP, CP, LIP, TROPI, LIPRF, GLYHGB #### [address] [address] Corset Fitter: Brandon Anaya MD pO2 Adj'd for Temp. NOT REPORTED Normal 30-50 [facility] Comment on above: Performed By: #### C DP, CP, LIP, TROPI, LIPRF, GLYHGB #### [address] [address] Corset Fitter: Brandon Anaya MD PSV NOT REPORTED Normal [facility] Comment on above: Performed By: #### C DP, CP, LIP, TROPI, LIPRF, GLYHGB #### [address] [address] Corset Fitter: Brandon Anaya MD Pt. Position NOT REPORTED Normal [facility] Comment on above: Performed By: #### C DP, CP, LIP, TROPI, LIPRF, GLYHGB #### [facility] [employer] [address] [place] [phone] Corset Fitter: Brandon Anaya MD Set Rate NOT REPORTED Normal [facility] Comment on above: Performed By: #### C DP, CP, LIP, TROPI, LIPRF, GLYHGB #### [facility] [employer] [address] [place] [phone] Corset Fitter: Brandon Anaya MD Site Drawn NOT REPORTED Normal [facility] Comment on above: Performed By: #### C DP, CP, LIP, TROPI, LIPRF, GLYHGB #### [address] [address] Corset Fitter: Branodn Anaya MD Text for Respiratory NOT REPORTED Normal [facility] Comment on above: Performed By: #### C DP, CP, LIP, TROPI, LIPRF, GLYHGB #### [address] [address] Corset Fitter: Brandon Anaya MD Total Hb NOT REPORTED Normal 12.0-16.0 [facility] Comment on above: Performed By: #### C DP, CP, LIP, TROPI, LIPRF, GLYHGB #### [facility] [employer] [address] [place] [phone] Corset Fitter: Brandon Anaya MD Total Rate NOT REPORTED Normal [facility] Comment on above: Performed By: #### C DP, CP, LIP, TROPI, LIPRF, GLYHGB #### [facility] [employer] [address] [place] [phone] Corset Fitter: Brandon Anaya MD [place] NOT REPORTED Normal [facility] Comment on above: Performed By: #### C DP, CP, LIP, TROPI, LIPRF, GLYHGB #### [address] [address] Corset Fitter: Brandon Anaya MD [facility] 10[facility] Comment: NOT REPORTED Normal [facility] Comment on above: Performed By: #### C DP, CP, LIP, TROPI, LIPRF, GLYHGB #### [address] [address] Corset Fitter: Brandon Anaya MD Basic Metab w/rfx [facility] 10-11 Potassium [Moles/Vol] 3.3 mmol/L Low 3.7-5.3 [facility] Comment on above: Performed By: #### C DP, CP, LIP, TROPI, LIPRF, GLYHGB #### [address] [address] Corset Fitter: Brandon Anaya MD (cont.) Normal [facility] Comment on above: Result Comment: Aver age GFR for 70 or more years old: 75 mL/min/1.73sq m Chronic Kidney Disease: <60 mL/min/1.73sq m Kidney failure: <15 mL/min/1.73sq m eGFR calculated using average adult body mass. Additional eGFR calculator available at: http://www.[employer].BUILD/multiple_crcl_2012.htm Performed By: #### C DP, CP, LIP, TROPI, LIPRF, GLYHGB #### [address] [address] Corset Fitter: Brandon Anaya MD Anion gap [Moles/Vol] 12 mmol/L Normal 9-17 [facility] Comment on above: Performed By: #### C DP, CP, LIP, TROPI, LIPRF, GLYHGB #### [address] [address] Corset Fitter: Brandon Anaya MD Calcium [Mass/Vol] 8.6 mg/dL Normal 8.6-10.4 [facility] Comment on above: Performed By: #### C DP, CP, LIP, TROPI, LIPRF, GLYHGB #### [facility] [employer] [address] [place] [phone] Corset Fitter: Brandon Anaya MD Chloride [Moles/Vol] 94 mmol/L Low 98-107 [facility] Comment on above: Performed By: #### C DP, CP, LIP, TROPI, LIPRF, GLYHGB #### [address] [address] Corset Fitter: Brandon Anaya MD CO2 [Moles/Vol] 26 mmol/L Normal 20-31 [facility] Comment on above: Performed By: #### C DP, CP, LIP, TROPI, LIPRF, GLYHGB #### [facility] [employer] [address] [place] [phone] Corset Fitter: Brandon Anaya MD Creatinine [Mass/Vol] 0.46 mg/dL Low 0.50-0.90 [facility] Comment on above: Performed By: #### C DP, CP, LIP, TROPI, LIPRF, GLYHGB #### [address] [address] Corset Fitter: Brandon Anaya MD GFR, Amer >60 Normal >60 [facility] Comment on above: Performed By: #### C DP, CP, LIP, TROPI, LIPRF, GLYHGB #### [facility] [employer] [address] [place] [phone] Corset Fitter: Brandon Anaya MD GFR,non Amer >60 Normal >60 [facility] Comment on above: Performed By: #### C DP, CP, LIP, TROPI, LIPRF, GLYHGB #### [facility] [employer] [address] [place] [phone] Corset Fitter: Brandon Anaya MD Glucose [Mass/Vol] 136 mg/dL High 70-99 [facility] Comment on above: Performed By: #### C DP, CP, LIP, TROPI, LIPRF, GLYHGB #### [facility] [employer] [address] [place] [address] Corset Fitter: Brandon Anaya MD Sodium [Moles/Vol] 132 mmol/L Low 135-144 [facility] Comment on above: Performed By: #### C DP, CP, LIP, TROPI, LIPRF, GLYHGB #### [address] [address] Corset Fitter: Brandon Anaya MD Urea nitrogen [Mass/Vol] 16 mg/dL Normal 8-23 [facility] Comment on above: Performed By: #### C DP, CP, LIP, TROPI, LIPRF, GLYHGB #### [facility] [employer] [address] [place] [phone] Corset Fitter: Brandon Anaya MD BUN/CRE Ratio NOT REPORTED Normal - [facility] Comment on above: Performed By: #### C DP, CP, LIP, TROPI, LIPRF, GLYHGB #### [facility] [employer] [address] [place] [phone] Corset Fitter: Brandon Anaya MD Staging: NOT REPORTED Normal [facility] Comment on above: Performed By: #### C DP, CP, LIP, TROPI, LIPRF, GLYHGB #### [facility] [employer] [address] [place] [phone] Corset Fitter: Brandon Anaya MD Basic Metabolic Panel w/ Ref kervin to MGon 10-12-2019 Anion gap [Moles/Vol] 12 mmol/L 9 - 17 mmol/L [place] Bun/Cre Ratio NOT REPORTED [place] Calcium [Mass/Vol] 8.6 mg/dL 8.6 - 10. 4 mg/dL [place] Chloride [Moles/Vol] 94 mmol/L Low 98 - 10 7 mmol/L [place] CO2 [Moles/Vol] 26 mmol/L 20 - 31 mmol/L [place] Creatinine [Mass/Vol] 0.46 mg/dL Low 0.5 - 0.9 mg/dL [place] GFR >60 >60 mL/min [place] GFR Non- >60 >60 mL/min [place] GFR/1.73 sq M predicted among non-blacks MDRD (S/P/Bld) [Vol rate/Area] [place] Comment on above: Average GFR for 70 o r more years old: 75 mL/min/1.73sq m Chronic Kidney Disease: <60 mL/min/1.73sq m Kidney failure: <15 mL/min/1.73sq m eGFR calculated using average adult body mass. Additional eGFR calculator available at: http://www.[employer]/multiple_crcl_2012.htm GFR/1.73 sq M predicted among non-blacks MDRD (S/P/Bld) [Vol rate/Area] NOT REPORTED [place] Glucose [Mass/Vol] 136 mg/dL High 70 - 99 mg/dL [place] Interpretation and review of laboratory results Abnormal [place] Potassium [Moles/Vol] 3.3 mmol/L Low 3.7 - 5.3 mmol/L [place] Sodium [Moles/Vol] 132 mmol/L Low 135 - 144 mmol/L [place] Urea nitrogen [Mass/Vol] 16 mg/dL 8 - 23 mg/dL [place] CBC auto differentialon 09-24 Basophils (Bld) [#/Vol] 0.04 10*3/uL [place] Basophils/100 WBC (Bld) 0 % 0 - 2 % [place] Differential Type NOT REPORTED [place] Eosinophils (Bld) [#/Vol] 10*3/uL [place] Eosinophils/100 WBC (Bld) 0 % Low 1 - 4 % [place] Erythrocyte distribution width (RBC) [Ratio] 14.7 % High 11.8 - 14.4 % [place] Hematocrit (Bld) [Volume fraction] 40.5 % 36.3 - 47.1 % [place] Hemoglobin (Bld) [Mass/Vol] 12.7 g/dL 11.9 - 15.1 g/dL [place] Immature granulocytes (Bld) [#/Vol] 0.11 10*3/uL [place] Immature granulocytes (Bld) [#/Vol] 1 % High 0 [place] Interpretation and review of laboratory results Abnormal [place] Lymphocytes (Bld) [#/Vol] 1.50 10*3/uL [place] Lymphocytes/100 WBC (Bld) 12 % Low 24 - 43 % [place] MCH (RBC) [Entitic mass] 29.4 pg 25.2 - 33.5 pg [place] MCHC (RBC) [Mass/Vol] 31.4 g/dL 28.4 - 34.8 g/dL [place] MCV (RBC) [Entitic vol] 93.8 fL 82.6 - 102.9 fL [place] Monocytes (Bld) [#/Vol] 0.87 10*3/uL [place] Monocytes/100 WBC (Bld) 7 % 3 - 12 % [place] Platelet mean volume (Bld) [Entitic vol] 10.7 fL 8.1 - 13.5 fL [place] Platelets (Bld) [#/Vol] 196 10*3/uL [place] Platelets (Bld) [#/Vol] NOT REPORTED [place] RBC (Bld) [#/Vol] 4.32 10*6/uL 3.95 - 5.1 1 m/uL [place] RBC morphology finding Nom (Bld) ANISOCYTOSIS PRESENT [place] Segmented neutrophils/100 WBC (Bld) 79 % High 36 - 65 % [place] Segs Absolute 9.64 High [place] WBC (Bld) [#/Vol] 12.2 10*3/uL [place] WBC (Bld) [#/Vol] 0.0 10*3/uL 0.0 per 10 0 WBC [place] WBC Morphology NOT REPORTED [place] CBC with Diffon 10-12-2019 Abs. Basophil 0.04 k/uL Normal 0.00-0.20 [facility] Comment on above: Performed By: #### C DP, CP, LIP, TROPI, LIPRF, GLYHGB #### [place] [address] Corset Fitter: Brandon Anaya MD Abs.Imm.Granulocyte 0.11 k/uL Normal 0.00-0.30 [facility] Comment on above: Performed By: #### C DP, CP, LIP, TROPI, LIPRF, GLYHGB #### [facility] [employer] [address] [place] [address] Corset Fitter: Brandon Anaya MD Abs.Neutrophil (Seg) 9.64 k/uL High 1.50-8.10 [facility] Comment on above: Performed By: #### C DP, CP, LIP, TROPI, LIPRF, GLYHGB #### [facility] [employer] [address] [place] [address] Corset Fitter: Brandon Anaya MD Basophils/100 WBC (Bld) 0 % Normal 0-2 [facility] Comment on above: Performed By: #### C DP, CP, LIP, TROPI, LIPRF, GLYHGB #### [facility] [employer] [address] [place] [phone] Corset Fitter: Brandon Anaya MD Eosinophils (Bld) [#/Vol] 10*3/uL Normal 0.00-0.44 [facility] Comment on above: Performed By: #### C DP, CP, LIP, TROPI, LIPRF, GLYHGB #### [address] [address] Corset Fitter: Brandon Anaya MD Eosinophils/100 WBC (Bld) 0 % Low 1-4 [facility] Comment on above: Performed By: #### C DP, CP, LIP, TROPI, LIPRF, GLYHGB #### [address] [address] Corset Fitter: Brandon Anaya MD Erythrocyte distribution width (RBC) [Ratio] 14.7 % High 11.8-14.4 [facility] Comment on above: Performed By: #### C DP, CP, LIP, TROPI, LIPRF, GLYHGB #### [address] [address] Corset Fitter: Brandon Anaya MD Hematocrit (Bld) [Volume fraction] 40.5 % Normal 36.3-47.1 [facility] Comment on above: Performed By: #### C DP, CP, LIP, TROPI, LIPRF, GLYHGB #### [address] [address] Corset Fitter: Brandon Anaya MD Hemoglobin (Bld) [Mass/Vol] 12.7 g/dL Normal 11.9-15.1 [facility] Comment on above: Performed By: #### C DP, CP, LIP, TROPI, LIPRF, GLYHGB #### [facility] [employer] [address] [place] [phone] Corset Fitter: Brandon Anaya MD Immature granulocytes (Bld) [#/Vol] 1 % High 0 [facility] Comment on above: Performed By: #### C DP, CP, LIP, TROPI, LIPRF, GLYHGB #### [address] [address] Corset Fitter: Brandon Anaya MD Lymphocytes (Bld) [#/Vol] 1.50 10*3/uL Normal 1.10-3.70 [facility] Comment on above: Performed By: #### C DP, CP, LIP, TROPI, LIPRF, GLYHGB #### [address] [address] Corset Fitter: Brandon Anaya MD Lymphocytes/100 WBC (Bld) 12 % Low 24-43 [facility] Comment on above: Performed By: #### C DP, CP, LIP, TROPI, LIPRF, GLYHGB #### [place] [address] Corset Fitter: Brandon Anaya MD MCH (RBC) [Entitic mass] 29.4 pg Normal 25.2-33.5 [facility] Comment on above: Performed By: #### C DP, CP, LIP, TROPI, LIPRF, GLYHGB #### [place] [address] Corset Fitter: Brandon Anaya MD MCHC (RBC) [Mass/Vol] 31.4 g/dL Normal 28.4-34.8 [facility] Comment on above: Performed By: #### C DP, CP, LIP, TROPI, LIPRF, GLYHGB #### [address] [address] Corset Fitter: Brandon Anaya MD MCV (RBC) [Entitic vol] 93.8 fL Normal 82.6-102.9 [facility] Comment on above: Performed By: #### C DP, CP, LIP, TROPI, LIPRF, GLYHGB #### [address] [address] Corset Fitter: Brandon Anaya MD Monocytes (Bld) [#/Vol] 0.87 10*3/uL Normal 0.10-1.20 [facility] Comment on above: Performed By: #### C DP, CP, LIP, TROPI, LIPRF, GLYHGB #### [address] [address] Corset Fitter: Brandon Anaya MD Monocytes/100 WBC (Bld) 7 % Normal 3-12 [facility] Comment on above: Performed By: #### C DP, CP, LIP, TROPI, LIPRF, GLYHGB #### [address] [address] Corset Fitter: Brandon Anaya MD Neutrophil (Seg) 79 % High 36-65 [facility] Comment on above: Performed By: #### C DP, CP, LIP, TROPI, LIPRF, GLYHGB #### [address] [address] Corset Fitter: Brandon Anaya MD NRBC Automated 0.0 per 100 WBC Normal 0.0 [facility] Comment on above: Performed By: #### C DP, CP, LIP, TROPI, LIPRF, GLYHGB #### [address] [address] Corset Fitter: Brandon Anaya MD Platelet mean volume (Bld) [Entitic vol] 10.7 fL Normal 8.1-13.5 [facility] Comment on above: Performed By: #### C DP, CP, LIP, TROPI, LIPRF, GLYHGB #### [address] [address] Corset Fitter: Brandon Anaya MD Platelets (Bld) [#/Vol] 196 10*3/uL Normal 138-453 [facility] Comment on above: Performed By: #### C DP, CP, LIP, TROPI, LIPRF, GLYHGB #### [address] [address] Corset Fitter: Brandon Anaya MD RBC (Bld) [#/Vol] 4.32 10*6/uL Normal 3.95-5.11 [facility] Comment on above: Performed By: #### C DP, CP, LIP, TROPI, LIPRF, GLYHGB #### [facility] [employer] [address] [place] [phone] Corset Fitter: Brandon Anaya MD RBC morphology finding Nom (Bld) ANISOCYTOSIS PRESENT Normal [facility] Comment on above: Performed By: #### C DP, CP, LIP, TROPI, LIPRF, GLYHGB #### [address] [address] Corset Fitter: Brandon Anaya MD WBC (Bld) [#/Vol] 12.2 10*3/uL High 3.5-11.3 [facility] Comment on above: Performed By: #### C DP, CP, LIP, TROPI, LIPRF, GLYHGB #### [address] [address] Corset Fitter: Brandon Anaya MD Auto Diff Performed NOT REPORTED Normal [facility] Comment on above: Performed By: #### C DP, CP, LIP, TROPI, LIPRF, GLYHGB #### [address] [address] Corset Fitter: Brandon Anaya MD Platelets (Bld) [#/Vol] NOT REPORTED Normal [facility] Comment on above: Performed By: #### C DP, CP, LIP, TROPI, LIPRF, GLYHGB #### [facility] [employer] [address] [place] [address] Corset Fitter: Brandon Anaya MD WBC Morphology NOT REPORTED Normal [facility] Comment on above: Performed By: #### C DP, CP, LIP, TROPI, LIPRF, GLYHGB #### [facility] [employer] [address] [place] [address] Corset Fitter: Brandon Anaya MD Magnesiumon 10-12-2019 Magnesium [Mass/Vol] 2.2 mg/dL Normal 1.6-2.6 [facility] Comment on above: Performed By: #### C DP, CP, LIP, TROPI, LIPRF, GLYHGB #### [facility] [address] [place] [phone] Corset Fitter: Brandon Anaya MD Magnesium [Mass/Vol] 2.2 mg/dL 1.6 - 2 .6 mg/dL [place] POC Glucose Fingerstickon Glucose [Mass/Vol] 117 mg/dL High 65 - 105 mg/dL [place] Interpretation and review of laboratory results Abnormal [place] Glucose [Mass/Vol] 115 mg/dL High 65 - 105 mg/dL [place] Interpretation and review of laboratory results Abnormal [place] Glucose [Mass/Vol] 123 mg/dL High 65 - 105 mg/dL [place] Interpretation and review of laboratory results Abnormal [place] Glucose [Mass/Vol] 117 mg/dL High 65 - 105 mg/dL [place] Interpretation and review of laboratory results Abnormal [place] URINALYSIS WITH MICROSCOPICo n 10-12-2019 Amorphous, UA NOT REPORTED None [place] Bacteria, UA NOT REPORTED None [place] Bilirubin Urine Negative NEGATIVE [place] Casts UA 0 TO 2 HYALINE Refer ence range defined for non-centrifuged specimen. [place] Color, UA YELLOW YELLOW [place] Crystals, UA NOT REPORTED None /HPF [place] Epithelial Cells UA 2 TO 5 [place] Glucose, Ur Negative NEGATIVE [place] Interpretation and review of laboratory results Abnormal [place] Ketones Ql (U) SMALL Abnormal NEGATIVE [place] Leukocyte esterase Test strip Ql (U) Negative NEGATIVE [place] Mucus, UA NOT REPORTED None [place] Nitrite, Urine Negative NEGATIVE [place] Other Observations UA NOT REPORTED NOT REQ. M [place] pH, UA 8.5 High [place] Protein (U) [Mass/Vol] Negative NEGATIVE Me [place] RBC (U) [#/Vol] TOO NUMEROUS TO COUNT [place] Comment on above: Reference range defi nya for non-centrifuged specimen. Renal Epithelial, UA NOT REPORTED 0 /HPF [place] Specific [place], UA 1.011 [place] Trichomonas, UA NOT REPORTED None [place] Turbidity UA TURBID Abnormal CLEAR [place] Urine Hgb Negative NEGATIVE [place] Urobilinogen, Urine Normal Normal [place] WBC, UA 0 TO 2 [place] Yeast, UA NOT REPORTED None [place] Urinalysis w/ Microon 2019 ----- Normal [facility] Comment on above: Performed By: #### C DP, CP, LIP, TROPI, LIPRF, GLYHGB #### [place] [address] Corset Fitter: Brandon Anaya MD Acetoacetic Acid,Ur SMALL Abnormal NEG [facility] Comment on above: Performed By: #### C DP, CP, LIP, TROPI, LIPRF, GLYHGB #### [address] [address] Corset Fitter: Brandon Anaya MD Bilirubin, SemiQt,Ur Negative Normal NEG [facility] Comment on above: Performed By: #### C DP, CP, LIP, TROPI, LIPRF, GLYHGB #### [facility] [employer] [address] [place] [address] Corset Fitter: Brandon Anaya MD Casts LM.LPF (Urine sed) [#/Area] 0 TO 2 HYALINE Normal 0-8 [facility] Comment on above: Result Comment: Refe rence range defined for non-centrifuged specimen. Performed By: #### C DP, CP, LIP, TROPI, LIPRF, GLYHGB #### [address] [address] Corset Fitter: Brandon Anaya MD Color (U) YELLOW Normal YEL [facility] Comment on above: Performed By: #### C DP, CP, LIP, TROPI, LIPRF, GLYHGB #### [address] [address] Corset Fitter: Brnadon Anaya MD Epithelial cells LM.HPF (Urine sed) [#/Area] 2 TO 5 Normal 0-5 [facility] Comment on above: Performed By: #### C DP, CP, LIP, TROPI, LIPRF, GLYHGB #### [address] [address] Corset Fitter: Brandon Anaya MD Glucose Ql (U) Negative Normal NEG [facility] Comment on above: Performed By: #### C DP, CP, LIP, TROPI, LIPRF, GLYHGB #### [address] [address] Corset Fitter: Brandon Anaya MD Hemoglobin, Ur Negative Normal NEG [facility] Comment on above: Performed By: #### C DP, CP, LIP, TROPI, LIPRF, GLYHGB #### [address] [address] Corset Fitter: Brandon Anaya MD Leukocyte esterase Test strip Ql (U) Negative Normal NEG [facility] Comment on above: Performed By: #### C DP, CP, LIP, TROPI, LIPRF, GLYHGB #### [facility] [employer] [address] [place] [address] Corset Fitter: Brandon Anaya MD Nitrite,Ur Negative Normal NEG [facility] Comment on above: Performed By: #### C DP, CP, LIP, TROPI, LIPRF, GLYHGB #### [facility] [employer] [address] [place] [phone] Corset Fitter: Brandon Anaya MD pH (U) 8.5 [pH] High 5.0-8.0 [facility] Comment on above: Performed By: #### C DP, CP, LIP, TROPI, LIPRF, GLYHGB #### [address] [address] Corset Fitter: Brandon Anaya MD Protein Ql (U) Negative Normal NEG [facility] Comment on above: Performed By: #### C DP, CP, LIP, TROPI, LIPRF, GLYHGB #### [address] [address] Corset Fitter: Brandon Anaya MD RBC (U) [#/Vol] TOO NUMEROUS TO COUNT Normal 0-4 [facility] Comment on above: Result Comment: Refe rence range defined for non-centrifuged specimen. Performed By: #### C DP, CP, LIP, TROPI, LIPRF, GLYHGB #### [address] [address] Corset Fitter: Brandon Anaya MD Specific gravity (U) [Rel density] 1.011 Normal 1.005-1.030 [facility] Comment on above: Performed By: #### C DP, CP, LIP, TROPI, LIPRF, GLYHGB #### [facility] [employer] [address] [place] [address] Corset Fitter: Brandon Anaya MD Turbidity TURBID Abnormal CLEAR [facility] Comment on above: Performed By: #### C DP, CP, LIP, TROPI, LIPRF, GLYHGB #### [facility] [employer] [address] [place] [phone] Corset Fitter: Brandon Anaya MD Urobilinogen,Ur Normal Normal NORM [facility] Comment on above: Performed By: #### C DP, CP, LIP, TROPI, LIPRF, GLYHGB #### [address] [address] Corset Fitter: Brandon Anaya MD WBC (U) [#/Vol] 0 TO 2 Normal 0-5 [facility] Comment on above: Performed By: #### C DP, CP, LIP, TROPI, LIPRF, GLYHGB #### [address] [address] Corset Fitter: Brandon Anaya MD Amorphous sediment LM Ql (Urine sed) NOT REPORTED Normal [facility] Comment on above: Performed By: #### C DP, CP, LIP, TROPI, LIPRF, GLYHGB #### [address] [address] Corset Fitter: Brandon Anaya MD Bacteria LM.HPF (Urine sed) [#/Area] NOT REPORTED Normal NONE [facility] Comment on above: Performed By: #### C DP, CP, LIP, TROPI, LIPRF, GLYHGB #### [address] [address] Corset Fitter: Brandon Anaya MD Crystals LM Nom (Urine sed) NOT REPORTED Normal [facility] Comment on above: Performed By: #### C DP, CP, LIP, TROPI, LIPRF, GLYHGB #### [facility] [employer] [address] [place] [phone] Corset Fitter: Brandon Anaya MD Epithelial, Renal NOT REPORTED Normal 0 [facility] Comment on above: Performed By: #### C DP, CP, LIP, TROPI, LIPRF, GLYHGB #### [facility] [employer] [address] [place] [phone] Corset Fitter: Brandon Anaya MD Mucus Strands NOT REPORTED Normal NONE [facility] Comment on above: Performed By: #### C DP, CP, LIP, TROPI, LIPRF, GLYHGB #### [facility] [place] [address] Corset Fitter: Brandon Anaya MD Other Observations NOT REPORTED Normal NREQ [facility] Comment on above: Performed By: #### C DP, CP, LIP, TROPI, LIPRF, GLYHGB #### [facility] [address] [place] [phone] Corset Fitter: Brandon Anaya MD Trichomonas NOT REPORTED Normal NONE [facility] Comment on above: Performed By: #### C DP, CP, LIP, TROPI, LIPRF, GLYHGB #### [facility] [address] [place] [phone] Corset Fitter: Brandon Anaya MD Yeast LM Ql (Urine sed) NOT REPORTED Normal [facility] Comment on above: Performed By: #### C DP, CP, LIP, TROPI, LIPRF, GLYHGB #### [facility] [place] [address] Corset Fitter: Brandon Anaya MD RENAL ARTERIAL DUPLEX COM PLETEon 10-12-2019 [facility] Procedure Patient Name ALEYDA Date of Study 10/12/2019 ZACHARY Date of 1945 Gender Female Age 74 year(s) Race Room Number 2015 Corporate ID [id number] # Patient Acct [id number] # MR # [id number] Distribution Sales Manager Celena Juarez, JACEK, MS Interpreting Jamison Galo [...] The average kidney length is 10.75 cm. [facility] [place], [place] Pri[place], Mhpn Incoming Cardio Results From [employer] - 10/12/2019 7:54 PM EDT [facility] Renal Procedure Patient Name ALEYDA Date of Study 10/12/2019 ZACHARY Date of 1945 Gender Female Age 74 year(s) Race Room Number 2015 Corporate ID [id number] # Patient Acct [id number] # MR # [id number] Distribution Sales Manager Celena Juarez RVT, RDMS Interpreting Jamison Galo [...] The average kidney length is 10.75 cm. [facility] [place] XR CHEST PORTABLEon 10-12-19 20 [...] Argentina Guzmán MD 10/11/19 Final result Normal [facility] Basic Metab w/rfx MGon 10-10 (cont.) Normal [facility] Comment on above: Result Comment: Aver age GFR for 70 or more years old: 75 mL/min/1.73sq m Chronic Kidney Disease: <60 mL/min/1.73sq m Kidney failure: <15 mL/min/1.73sq m eGFR calculated using average adult body mass. Additional eGFR calculator available at: http://www.[employer]/multiple_crcl_2012.htm Performed By: #### C DP, CP, LIP, TROPI, LIPRF, GLYHGB #### [employer] [address] [place] [phone] Corset Fitter: Brandon Anaya MD Anion gap [Moles/Vol] 15 mmol/L Normal - [facility] Comment on above: Performed By: #### C DP, CP, LIP, TROPI, LIPRF, GLYHGB #### [employer] [address] [place] [address] Corset Fitter: Brandon Anaya MD Calcium [Mass/Vol] 9.2 mg/dL Normal 8.6-10.4 [facility] Comment on above: Performed By: #### C DP, CP, LIP, TROPI, LIPRF, GLYHGB #### [address] [address] Corset Fitter: Brandon Anaya MD Chloride [Moles/Vol] 96 mmol/L Low 98-107 [facility] Comment on above: Performed By: #### C DP, CP, LIP, TROPI, LIPRF, GLYHGB #### [address] [address] Corset Fitter: Brandon Anaya MD CO2 [Moles/Vol] 24 mmol/L Normal 20-31 [facility] Comment on above: Performed By: #### C DP, CP, LIP, TROPI, LIPRF, GLYHGB #### [address] [address] Corset Fitter: Brandon Anaya MD Creatinine [Mass/Vol] 0.55 mg/dL Normal 0.50-0.90 [facility] Comment on above: Performed By: #### C DP, CP, LIP, TROPI, LIPRF, GLYHGB #### [address] [address] Corset Fitter: Brandon Anaya MD GFR, Amer >60 Normal >60 [facility] Comment on above: Performed By: #### C DP, CP, LIP, TROPI, LIPRF, GLYHGB #### [address] [address] Corset Fitter: Brandon Anaya MD GFR,non Amer >60 Normal >60 [facility] Comment on above: Performed By: #### C DP, CP, LIP, TROPI, LIPRF, GLYHGB #### [address] [address] Corset Fitter: Brandon Anaya MD Glucose [Mass/Vol] 146 mg/dL High 70-99 [facility] Comment on above: Performed By: #### C DP, CP, LIP, TROPI, LIPRF, GLYHGB #### [address] [address] Corset Fitter: Brandon Anaya MD Potassium [Moles/Vol] 3.6 mmol/L Low 3.7-5.3 [facility] Comment on above: Performed By: #### C DP, CP, LIP, TROPI, LIPRF, GLYHGB #### [address] [address] Corset Fitter: Brandon Anaya MD Sodium [Moles/Vol] 135 mmol/L Normal 135-144 [facility] Comment on above: Performed By: #### C DP, CP, LIP, TROPI, LIPRF, GLYHGB #### [address] [address] Corset Fitter: Brandon Anaya MD Urea nitrogen [Mass/Vol] 13 mg/dL Normal 8- [facility] Comment on above: Performed By: #### C DP, CP, LIP, TROPI, LIPRF, GLYHGB #### [address] [address] Corset Fitter: Brandon Anaya MD BUN/CRE Ratio NOT REPORTED Normal - [facility] Comment on above: Performed By: #### C DP, CP, LIP, TROPI, LIPRF, GLYHGB #### [address] [address] Corset Fitter: Brandon Anaya MD Staging: NOT REPORTED Normal [facility] Comment on above: Performed By: #### C DP, CP, LIP, TROPI, LIPRF, GLYHGB #### [address] [address] Corset Fitter: Brandon Anaya MD Basic Metabolic Panel w/ Ref kervin to MGon 10-11-2019 Anion gap [Moles/Vol] 15 mmol/L 9 - 17 mmol/L [place] Bun/Cre Ratio NOT REPORTED [place] Calcium [Mass/Vol] 9.2 mg/dL 8.6 - 10. 4 mg/dL [place] Chloride [Moles/Vol] 96 mmol/L Low 98 - 10 7 mmol/L [place] CO2 [Moles/Vol] 24 mmol/L 20 - 31 mmol/L [place] Creatinine [Mass/Vol] 0.55 mg/dL 0.5 - 0.9 mg/dL [place] GFR >60 >60 mL/min [place] GFR Non- >60 >60 mL/min [place] GFR/1.73 sq M predicted among non-blacks MDRD (S/P/Bld) [Vol rate/Area] NOT REPORTED [place] GFR/1.73 sq M predicted among non-blacks MDRD (S/P/Bld) [Vol rate/Area] [place] Comment on above: Average GFR for 70 o r more years old: 75 mL/min/1.73sq m Chronic Kidney Disease: <60 mL/min/1.73sq m Kidney failure: <15 mL/min/1.73sq m eGFR calculated using average adult body mass. Additional eGFR calculator available at: http://www.Flicstart/multiple_crcl_2012.htm Glucose [Mass/Vol] 146 mg/dL High 70 - 99 mg/dL [place] Interpretation and review of laboratory results Abnormal [place] Potassium [Moles/Vol] 3.6 mmol/L Low 3.7 - 5.3 mmol/L [place] Sodium [Moles/Vol] 135 mmol/L 135 - 144 mmol/L [place] Urea nitrogen [Mass/Vol] 13 mg/dL 8 - 23 mg/dL [place] CBC auto differentialon 09-24 Basophils (Bld) [#/Vol] 0.03 10*3/uL [place] Basophils/100 WBC (Bld) 0 % 0 - 2 % [place] Differential Type NOT REPORTED [place] Eosinophils (Bld) [#/Vol] 10*3/uL [place] Eosinophils/100 WBC (Bld) 0 % Low 1 - 4 % [place] Erythrocyte distribution width (RBC) [Ratio] 14.3 % 11.8 - 14.4 % [place] Hematocrit (Bld) [Volume fraction] 43.6 % 36.3 - 47.1 % [place] Hemoglobin (Bld) [Mass/Vol] 13.7 g/dL 11.9 - 15.1 g/dL [place] Immature granulocytes (Bld) [#/Vol] 1 % High 0 [place] Immature granulocytes (Bld) [#/Vol] 0.07 10*3/uL [place] Interpretation and review of laboratory results Abnormal [place] Lymphocytes (Bld) [#/Vol] 0.92 10*3/uL Low [place] Lymphocytes/100 WBC (Bld) 14 % Low 24 - 43 % [place] MCH (RBC) [Entitic mass] 29.1 pg 25.2 - 33.5 pg [place] MCHC (RBC) [Mass/Vol] 31.4 g/dL 28.4 - 34.8 g/dL [place] MCV (RBC) [Entitic vol] 92.6 fL 82.6 - 102.9 fL [place] Monocytes (Bld) [#/Vol] 0.07 10*3/uL Low [place] Monocytes/100 WBC (Bld) 1 % Low 3 - 12 % [place] Platelet mean volume (Bld) [Entitic vol] 10.6 fL 8.1 - 13.5 fL [place] Platelets (Bld) [#/Vol] NOT REPORTED [place] Platelets (Bld) [#/Vol] 196 10*3/uL [place] RBC (Bld) [#/Vol] 4.71 10*6/uL 3.95 - 5.1 1 m/uL [place] RBC morphology finding Nom (Bld) NOT REPORTED [place] Segmented neutrophils/100 WBC (Bld) 84 % High 36 - 65 % [place] Segs Absolute 5.67 [place] WBC (Bld) [#/Vol] 0.0 10*3/uL 0.0 per 10 0 WBC [place] WBC (Bld) [#/Vol] 6.8 10*3/uL [place] WBC Morphology NOT REPORTED [place] CBC with Diffon 10-11-2019 Abs. Basophil 0.03 k/uL Normal 0.00-0.20 [facility] Comment on above: Performed By: #### C DP, CP, LIP, TROPI, LIPRF, GLYHGB #### [address] [address] Corset Fitter: Brandon Anaya MD Abs.Imm.Granulocyte 0.07 k/uL Normal 0.00-0.30 [facility] Comment on above: Performed By: #### C DP, CP, LIP, TROPI, LIPRF, GLYHGB #### [facility] [employer] [address] [place] [address] Corset Fitter: Brandon Anaya MD Abs.Neutrophil (Seg) 5.67 k/uL Normal 1.50-8.10 [facility] Comment on above: Performed By: #### C DP, CP, LIP, TROPI, LIPRF, GLYHGB #### [facility] [employer] [address] [place] [address] Corset Fitter: Brandon Anaya MD Basophils/100 WBC (Bld) 0 % Normal 0-2 [facility] Comment on above: Performed By: #### C DP, CP, LIP, TROPI, LIPRF, GLYHGB #### [facility] [employer] [address] [place] [address] Corset Fitter: Brandon Anaya MD Eosinophils (Bld) [#/Vol] 10*3/uL Normal 0.00-0.44 [facility] Comment on above: Performed By: #### C DP, CP, LIP, TROPI, LIPRF, GLYHGB #### [facility] [employer] [address] [place] [address] Corset Fitter: Brandon Anaya MD Eosinophils/100 WBC (Bld) 0 % Low 1-4 [facility] Comment on above: Performed By: #### C DP, CP, LIP, TROPI, LIPRF, GLYHGB #### [facility] [employer] [address] [place] [address] Corset Fitter: Brandon Anaya MD Erythrocyte distribution width (RBC) [Ratio] 14.3 % Normal 11.8-14.4 [facility] Comment on above: Performed By: #### C DP, CP, LIP, TROPI, LIPRF, GLYHGB #### [facility] [employer] [address] [place] [address] Corset Fitter: Brandon Anaya MD Hematocrit (Bld) [Volume fraction] 43.6 % Normal 36.3-47.1 [facility] Comment on above: Performed By: #### C DP, CP, LIP, TROPI, LIPRF, GLYHGB #### [facility] [employer] [address] [place] [address] Corset Fitter: Brandon Anaya MD Hemoglobin (Bld) [Mass/Vol] 13.7 g/dL Normal 11.9-15.1 [facility] Comment on above: Performed By: #### C DP, CP, LIP, TROPI, LIPRF, GLYHGB #### [facility] [employer] [address] [place] [address] Corset Fitter: Brandon Anaya MD Immature granulocytes (Bld) [#/Vol] 1 % High 0 [facility] Comment on above: Performed By: #### C DP, CP, LIP, TROPI, LIPRF, GLYHGB #### [address] [address] Corset Fitter: Brandon Anaya MD Lymphocytes (Bld) [#/Vol] 0.92 10*3/uL Low 1.10-3.70 [facility] Comment on above: Performed By: #### C DP, CP, LIP, TROPI, LIPRF, GLYHGB #### [place] [address] Corset Fitter: Brandon Anaya MD Lymphocytes/100 WBC (Bld) 14 % Low 24-43 [facility] Comment on above: Performed By: #### C DP, CP, LIP, TROPI, LIPRF, GLYHGB #### [place] [address] Corset Fitter: Brandon Anaya MD MCH (RBC) [Entitic mass] 29.1 pg Normal 25.2-33.5 [facility] Comment on above: Performed By: #### C DP, CP, LIP, TROPI, LIPRF, GLYHGB #### [place] [address] Corset Fitter: Brandon Anaya MD MCHC (RBC) [Mass/Vol] 31.4 g/dL Normal 28.4-34.8 [facility] Comment on above: Performed By: #### C DP, CP, LIP, TROPI, LIPRF, GLYHGB #### [place] [address] Corset Fitter: Brandon Anaya MD MCV (RBC) [Entitic vol] 92.6 fL Normal 82.6-102.9 [facility] Comment on above: Performed By: #### C DP, CP, LIP, TROPI, LIPRF, GLYHGB #### [address] [address] Corset Fitter: Brandon Anaya MD Monocytes (Bld) [#/Vol] 0.07 10*3/uL Low 0.10-1.20 [facility] Comment on above: Performed By: #### C DP, CP, LIP, TROPI, LIPRF, GLYHGB #### [address] [address] Corset Fitter: Brandon Anaya MD Monocytes/100 WBC (Bld) 1 % Low 3-12 [facility] Comment on above: Performed By: #### C DP, CP, LIP, TROPI, LIPRF, GLYHGB #### [place] [address] Corset Fitter: Brandon Anaya MD Neutrophil (Seg) 84 % High 36-65 [facility] Comment on above: Performed By: #### C DP, CP, LIP, TROPI, LIPRF, GLYHGB #### [place] [address] Corset Fitter: Brandon Anaya MD NRBC Automated 0.0 per 100 WBC Normal 0.0 [facility] Comment on above: Performed By: #### C DP, CP, LIP, TROPI, LIPRF, GLYHGB #### [place] [address] Corset Fitter: Brandon Anaya MD Platelet mean volume (Bld) [Entitic vol] 10.6 fL Normal 8.1-13.5 [facility] Comment on above: Performed By: #### C DP, CP, LIP, TROPI, LIPRF, GLYHGB #### [place] [address] Corset Fitter: Brandon Anyaa MD Platelets (Bld) [#/Vol] 196 10*3/uL Normal 138-453 [facility] Comment on above: Performed By: #### C DP, CP, LIP, TROPI, LIPRF, GLYHGB #### [employer] [address] Corset Fitter: Brandon Anaya MD RBC (Bld) [#/Vol] 4.71 10*6/uL Normal 3.95-5.11 [facility] Comment on above: Performed By: #### C DP, CP, LIP, TROPI, LIPRF, GLYHGB #### [address] [address] Corset Fitter: Brandon Anaya MD WBC (Bld) [#/Vol] 6.8 10*3/uL Normal 3.5-11.3 [facility] Comment on above: Performed By: #### C DP, CP, LIP, TROPI, LIPRF, GLYHGB #### [address] [address] Corset Fitter: Brandon Anaya MD Auto Diff Performed NOT REPORTED Normal [facility] Comment on above: Performed By: #### C DP, CP, LIP, TROPI, LIPRF, GLYHGB #### [address] [address] Corset Fitter: Brandon Anaya MD Platelets (Bld) [#/Vol] NOT REPORTED Normal [facility] Comment on above: Performed By: #### C DP, CP, LIP, TROPI, LIPRF, GLYHGB #### [address] [address] Corset Fitter: Brandon Anaya MD RBC morphology finding Nom (Bld) NOT REPORTED Normal [facility] Comment on above: Performed By: #### C DP, CP, LIP, TROPI, LIPRF, GLYHGB #### [address] [address] Corset Fitter: Brandon Anaya MD WBC Morphology NOT REPORTED Normal [facility] Comment on above: Performed By: #### C DP, CP, LIP, TROPI, LIPRF, GLYHGB #### [facility] [employer] [address] [place] [address] Corset Fitter: Brandon Anaya MD MRI BRAIN W WO [...] Chaitanya Sawyer MD 10/11/19 Final result Normal [facility] Prieto, Mhpn Incoming Radiant Results From [employer] - 10/11/2019 3:07 PM EDT EXAMINATION: MRI [...] Small meningioma over the right frontal lobe. [place] Volume loss with chr onic white matter microvascular ischemic change. Small meningioma over the right frontal lobe. [place] EXAMINATION: MRI OF THE BRAIN WITHOUT [...] The soft tissues demonstrate no acute abnormality. [place] POC Glucose Fingerstickon Glucose [Mass/Vol] 121 mg/dL High 65 - 105 mg/dL [place] Interpretation and review of laboratory results Abnormal [place] Glucose [Mass/Vol] 171 mg/dL High 65 - 105 mg/dL [place] Interpretation and review of laboratory results Abnormal [place] Glucose [Mass/Vol] 127 mg/dL High 65 - 105 mg/dL [place] Interpretation and review of laboratory results Abnormal [place] Glucose [Mass/Vol] 145 mg/dL High 65 - 105 mg/dL [place] Interpretation and review of laboratory results Abnormal [place] XR CHEST PORTABLEon 10-11-19 20 EXAMINATION: ONE XRA Y VIEW OF THE CHEST 10/11/2019 10:45 pm COMPARISON: 06/27/2017 HISTORY: ORDERING SYSTEM PROVIDED HISTORY: evaluate TECHNOLOGIST PROVIDED HISTORY: evaluate Reason for Exam: Upright portable Acuity: Unknown Type of Exam: Unknown FINDINGS: Cardiomediastinal silhouette is unchanged in size. Aortic atherosclerosis. No pulmonary consolidation, pleural effusion, or pneumothorax. No acute osseous abnormality. [place], [place] Incoming Radiant Results From [employer] - 10/11/2019 11:49 PM EDT EXAMINATION: ONE XRAY VIEW OF THE CHEST 10/11/2019 10:45 pm COMPARISON: 06/27/2017 HISTORY: ORDERING SYSTEM PROVIDED HISTORY: evaluate TECHNOLOGIST PROVIDED HISTORY: evaluate Reason for Exam: Upright portable Acuity: Unknown Type of Exam: Unknown FINDINGS: Cardiomediastinal silhouette is unchanged in size. Aortic atherosclerosis. No pulmonary consolidation, pleural effusion, or pneumothorax. No acute osseous abnormality. IMPRESSION: No acute cardiopulmonary abnormality. [place] No acute cardiopulmo nary abnormality. [place] Basic Metab w/rfx MGon 10-09 (cont.) Normal [facility] Comment on above: Result Comment: Aver age GFR for 70 or more years old: 75 mL/min/1.73sq m Chronic Kidney Disease: <60 mL/min/1.73sq m Kidney failure: <15 mL/min/1.73sq m eGFR calculated using average adult body mass. Additional eGFR calculator available at: http://www.[employer].BUILD/multiple_crcl_2012.htm Performed By: #### C DP, CP, LIP, TROPI, LIPRF, GLYHGB #### [facility] [employer] [facility] [place] [address] Corset Fitter: Brandon Anaya MD Anion gap [Moles/Vol] 10 mmol/L Normal 9-17 [facility] Comment on above: Performed By: #### C DP, CP, LIP, TROPI, LIPRF, GLYHGB #### [facility] [employer] [address] [place] [id number] Corset Fitter: Brandon Anaya MD Calcium [Mass/Vol] 9.0 mg/dL Normal 8.6-10.4 [facility] Comment on above: Performed By: #### C DP, CP, LIP, TROPI, LIPRF, GLYHGB #### [facility] [employer] [address] [place] [phone] Corset Fitter: Brandon Anaya MD Chloride [Moles/Vol] 97 mmol/L Low 98-107 [facility] Comment on above: Performed By: #### C DP, CP, LIP, TROPI, LIPRF, GLYHGB #### [address] [address] Corset Fitter: Brandon Anaya MD CO2 [Moles/Vol] 25 mmol/L Normal 20-31 [facility] Comment on above: Performed By: #### C DP, CP, LIP, TROPI, LIPRF, GLYHGB #### [facility] [employer] [address] [place] [phone] Corset Fitter: Brandon Anaya MD Creatinine [Mass/Vol] 0.50 mg/dL Normal 0.50-0.90 [facility] Comment on above: Performed By: #### C DP, CP, LIP, TROPI, LIPRF, GLYHGB #### [facility] [employer] [address] [place] [phone] Corset Fitter: Brandon Anaya MD GFR, Amer >60 Normal >60 [facility] Comment on above: Performed By: #### C DP, CP, LIP, TROPI, LIPRF, GLYHGB #### [facility] [employer] [address] [place] [phone] Corset Fitter: Brandon Anaya MD GFR,non Amer >60 Normal >60 [facility] Comment on above: Performed By: #### C DP, CP, LIP, TROPI, LIPRF, GLYHGB #### [address] [address] Corset Fitter: Brandon Anaya MD Glucose [Mass/Vol] 123 mg/dL High 70-99 [facility] Comment on above: Performed By: #### C DP, CP, LIP, TROPI, LIPRF, GLYHGB #### [address] [address] Corset Fitter: Brandon Anaya MD Potassium [Moles/Vol] 3.5 mmol/L Low 3.7-5.3 [facility] Comment on above: Performed By: #### C DP, CP, LIP, TROPI, LIPRF, GLYHGB #### [facility] [employer] [address] [place] [phone] Corset Fitter: Brandno Anaya MD Sodium [Moles/Vol] 132 mmol/L Low 135-144 [facility] Comment on above: Performed By: #### C DP, CP, LIP, TROPI, LIPRF, GLYHGB #### [address] [address] Corset Fitter: Brandon Anaya MD Urea nitrogen [Mass/Vol] 14 mg/dL Normal 8- [facility] Comment on above: Performed By: #### C DP, CP, LIP, TROPI, LIPRF, GLYHGB #### [address] [address] Corset Fitter: Brandon Anaya MD BUN/CRE Ratio NOT REPORTED Normal 9-20 [facility] Comment on above: Performed By: #### C DP, CP, LIP, TROPI, LIPRF, GLYHGB #### [id number] [place] [address] Corset Fitter: Brandon Anaya MD Staging: NOT REPORTED Normal [facility] Comment on above: Performed By: #### C DP, CP, LIP, TROPI, LIPRF, GLYHGB #### [id number] [place], [place] [id number] Corset Fitter: Brandon Anaya MD Basic Metabolic Panel w/ Ref kervin to MGon 10-10-2019 Anion gap [Moles/Vol] 10 mmol/L 9 - 17 mmol/L [place] Bun/Cre Ratio NOT REPORTED [place] Calcium [Mass/Vol] 9.0 mg/dL 8.6 - 10. 4 mg/dL [place] Chloride [Moles/Vol] 97 mmol/L Low 98 - 10 7 mmol/L [place] CO2 [Moles/Vol] 25 mmol/L 20 - 31 mmol/L [place] Creatinine [Mass/Vol] 0.5 mg/dL 0.5 - 0.9 mg/dL [place] GFR >60 >60 mL/min [place] GFR Non- >60 >60 mL/min [place] GFR/1.73 sq M predicted among non-blacks MDRD (S/P/Bld) [Vol rate/Area] [place] Comment on above: Average GFR for 70 o r more years old: 75 mL/min/1.73sq m Chronic Kidney Disease: <60 mL/min/1.73sq m Kidney failure: <15 mL/min/1.73sq m eGFR calculated using average adult body mass. Additional eGFR calculator available at: http://www.[employer].com/multiple_crcl_2012.htm GFR/1.73 sq M predicted among non-blacks MDRD (S/P/Bld) [Vol rate/Area] NOT REPORTED [place] Glucose [Mass/Vol] 123 mg/dL High 70 - 99 mg/dL [place] Interpretation and review of laboratory results Abnormal [place] Potassium [Moles/Vol] 3.5 mmol/L Low 3.7 - 5.3 mmol/L [place] Sodium [Moles/Vol] 132 mmol/L Low 135 - 144 mmol/L [place] Urea nitrogen [Mass/Vol] 14 mg/dL 8 - 23 mg/dL [place] C-REACTIVE PROTEINon 020 CRP [Mass/Vol] 6.3 mg/L High 0 - 5 mg/L [place] Interpretation and review of laboratory results Abnormal [place] C-Reactive Proteinon 020 CRP [Mass/Vol] 6.3 mg/L High 0.0-5.0 [facility] Comment on above: Performed By: #### C DP, CP, LIP, TROPI, LIPRF, GLYHGB #### [id number] [place] [address] Corset Fitter: Brandon Anaya MD CBC auto differentialon 09-24 Basophils (Bld) [#/Vol] 0.06 10*3/uL [place] Basophils/100 WBC (Bld) 1 % 0 - 2 % [place] Differential Type NOT REPORTED [place] Eosinophils (Bld) [#/Vol] 0.07 10*3/uL [place] Eosinophils/100 WBC (Bld) 1 % 1 - 4 % [place] Erythrocyte distribution width (RBC) [Ratio] 14.5 % High 11.8 - 14.4 % [place] Hematocrit (Bld) [Volume fraction] 42.7 % 36.3 - 47.1 % [place] Hemoglobin (Bld) [Mass/Vol] 13.5 g/dL 11.9 - 15.1 g/dL [place] Immature granulocytes (Bld) [#/Vol] 0.05 10*3/uL [place] Immature granulocytes (Bld) [#/Vol] 1 % High 0 [place] Interpretation and review of laboratory results Abnormal [place] Lymphocytes (Bld) [#/Vol] 1.05 10*3/uL Low [place] Lymphocytes/100 WBC (Bld) 14 % Low 24 - 43 % [place] MCH (RBC) [Entitic mass] 29.8 pg 25.2 - 33.5 pg [place] MCHC (RBC) [Mass/Vol] 31.6 g/dL 28.4 - 34.8 g/dL [place] MCV (RBC) [Entitic vol] 94.3 fL 82.6 - 102.9 fL [place] Monocytes (Bld) [#/Vol] 0.65 10*3/uL [place] Monocytes/100 WBC (Bld) 9 % 3 - 12 % [place] Platelet mean volume (Bld) [Entitic vol] 10.9 fL 8.1 - 13.5 fL [place] Platelets (Bld) [#/Vol] 170 10*3/uL [place] Platelets (Bld) [#/Vol] NOT REPORTED [place] RBC (Bld) [#/Vol] 4.53 10*6/uL 3.95 - 5.1 1 m/uL [place] RBC morphology finding Nom (Bld) ANISOCYTOSIS PRESENT [place] Segmented neutrophils/100 WBC (Bld) 74 % High 36 - 65 % [place] Segs Absolute 5.55 [place] WBC (Bld) [#/Vol] 0.0 10*3/uL 0.0 per 10 0 WBC [place] WBC (Bld) [#/Vol] 7.4 10*3/uL [place] WBC Morphology NOT REPORTED [place] CBC with Diffon 10-10-2019 Abs. Basophil 0.06 k/uL Normal 0.00-0.20 [facility] Comment on above: Performed By: #### C DP, CP, LIP, TROPI, LIPRF, GLYHGB #### [facility] [employer] [address] [place] [address] Corset Fitter: Brandon Anaya MD Abs.Imm.Granulocyte 0.05 k/uL Normal 0.00-0.30 [facility] Comment on above: Performed By: #### C DP, CP, LIP, TROPI, LIPRF, GLYHGB #### [address] [address] Corset Fitter: Brandon Anaya MD Abs.Neutrophil (Seg) 5.55 k/uL Normal 1.50-8.10 [facility] Comment on above: Performed By: #### C DP, CP, LIP, TROPI, LIPRF, GLYHGB #### [place] [address] Corset Fitter: Brandon Anaya MD Basophils/100 WBC (Bld) 1 % Normal 0-2 [facility] Comment on above: Performed By: #### C DP, CP, LIP, TROPI, LIPRF, GLYHGB #### [place] [address] Corset Fitter: Brandon Anaya MD Eosinophils (Bld) [#/Vol] 0.07 10*3/uL Normal 0.00-0.44 [facility] Comment on above: Performed By: #### C DP, CP, LIP, TROPI, LIPRF, GLYHGB #### [place] [address] Corset Fitter: Brandon Anaya MD Eosinophils/100 WBC (Bld) 1 % Normal 1-4 [facility] Comment on above: Performed By: #### C DP, CP, LIP, TROPI, LIPRF, GLYHGB #### [address] [address] Corset Fitter: Brandon Anaya MD Erythrocyte distribution width (RBC) [Ratio] 14.5 % High 11.8-14.4 [facility] Comment on above: Performed By: #### C DP, CP, LIP, TROPI, LIPRF, GLYHGB #### [facility] [employer] [address] [place] [address] Corset Fitter: Brandon Anaya MD Hematocrit (Bld) [Volume fraction] 42.7 % Normal 36.3-47.1 [facility] Comment on above: Performed By: #### C DP, CP, LIP, TROPI, LIPRF, GLYHGB #### [facility] [employer] [address] [place] [address] Corset Fitter: Brandon Anaya MD Hemoglobin (Bld) [Mass/Vol] 13.5 g/dL Normal 11.9-15.1 [facility] Comment on above: Performed By: #### C DP, CP, LIP, TROPI, LIPRF, GLYHGB #### [facility] [employer] [address] [place] [address] Corset Fitter: Brandon Anaya MD Immature granulocytes (Bld) [#/Vol] 1 % High 0 [facility] Comment on above: Performed By: #### C DP, CP, LIP, TROPI, LIPRF, GLYHGB #### [facility] [employer] [address] [place] [address] Corset Fitter: Brandon Anaya MD Lymphocytes (Bld) [#/Vol] 1.05 10*3/uL Low 1.10-3.70 [facility] Comment on above: Performed By: #### C DP, CP, LIP, TROPI, LIPRF, GLYHGB #### [facility] [employer] [address] [place] [address] Corset Fitter: Brandon Anaya MD Lymphocytes/100 WBC (Bld) 14 % Low 24-43 [facility] Comment on above: Performed By: #### C DP, CP, LIP, TROPI, LIPRF, GLYHGB #### [facility] [employer] [address] [place] [address] Corset Fitter: Brandon Anaya MD MCH (RBC) [Entitic mass] 29.8 pg Normal 25.2-33.5 [facility] Comment on above: Performed By: #### C DP, CP, LIP, TROPI, LIPRF, GLYHGB #### [address] [address] Corset Fitter: Brandon Anaya MD MCHC (RBC) [Mass/Vol] 31.6 g/dL Normal 28.4-34.8 [facility] Comment on above: Performed By: #### C DP, CP, LIP, TROPI, LIPRF, GLYHGB #### [place] [address] Corset Fitter: Brandon Anaya MD MCV (RBC) [Entitic vol] 94.3 fL Normal 82.6-102.9 [facility] Comment on above: Performed By: #### C DP, CP, LIP, TROPI, LIPRF, GLYHGB #### [place] [address] Corset Fitter: Brandon Anaya MD Monocytes (Bld) [#/Vol] 0.65 10*3/uL Normal 0.10-1.20 [facility] Comment on above: Performed By: #### C DP, CP, LIP, TROPI, LIPRF, GLYHGB #### [place] [address] Corset Fitter: Brandon Anaya MD Monocytes/100 WBC (Bld) 9 % Normal 3-12 [facility] Comment on above: Performed By: #### C DP, CP, LIP, TROPI, LIPRF, GLYHGB #### [address] [address] Corset Fitter: Brandon Anaya MD Neutrophil (Seg) 74 % High 36-65 [facility] Comment on above: Performed By: #### C DP, CP, LIP, TROPI, LIPRF, GLYHGB #### [address] [address] Corset Fitter: Brandon Anaya MD NRBC Automated 0.0 per 100 WBC Normal 0.0 [facility] Comment on above: Performed By: #### C DP, CP, LIP, TROPI, LIPRF, GLYHGB #### [address] [address] Corset Fitter: Brandon Anaya MD Platelet mean volume (Bld) [Entitic vol] 10.9 fL Normal 8.1-13.5 [facility] Comment on above: Performed By: #### C DP, CP, LIP, TROPI, LIPRF, GLYHGB #### [address] [address] Corset Fitter: Brandon Anaya MD Platelets (Bld) [#/Vol] 170 10*3/uL Normal 138-453 [facility] Comment on above: Performed By: #### C DP, CP, LIP, TROPI, LIPRF, GLYHGB #### [address] [address] Corset Fitter: Brandon Anaya MD RBC (Bld) [#/Vol] 4.53 10*6/uL Normal 3.95-5.11 [facility] Comment on above: Performed By: #### C DP, CP, LIP, TROPI, LIPRF, GLYHGB #### [address] [address] Corset Fitter: Brandon Anaya MD RBC morphology finding Nom (Bld) ANISOCYTOSIS PRESENT Normal [facility] Comment on above: Performed By: #### C DP, CP, LIP, TROPI, LIPRF, GLYHGB #### [address] [address] Corset Fitter: Brandon Anaya MD WBC (Bld) [#/Vol] 7.4 10*3/uL Normal 3.5-11.3 [facility] Comment on above: Performed By: #### C DP, CP, LIP, TROPI, LIPRF, GLYHGB #### [address] [address] Corset Fitter: Brandon Anaya MD Auto Diff Performed NOT REPORTED Normal [facility] Comment on above: Performed By: #### C DP, CP, LIP, TROPI, LIPRF, GLYHGB #### [address] [address] Corset Fitter: Brandon Anaya MD Platelets (Bld) [#/Vol] NOT REPORTED Normal [facility] Comment on above: Performed By: #### C DP, CP, LIP, TROPI, LIPRF, GLYHGB #### [address] [address] Corset Fitter: Brandon Anaya MD WBC Morphology NOT REPORTED Normal [facility] Comment on above: Performed By: #### C DP, CP, LIP, TROPI, LIPRF, GLYHGB #### [address] [address] Corset Fitter: Brandon Anaya MD CT HEAD WO CONTRASTon [...] Naga Browning MD 10/10/19 Final result Normal [facility] 1. No acute intracra nial abnormality. 2. Mild chronic white matter microvascular ischemic changes. [place] EXAMINATION: CT OF T HE HEAD [...] of the visualized skull or soft tissues. [place] Pri[place], pn Incoming Radiant Results From [employer] - 10/10/2019 5:31 PM EDT EXAMINATION: CT [...] Mild chronic white matter microvascular ischemic changes. [place] CTA HEAD NECK W CONTRASTon 0 [...] Initial FINDINGS: CTA NECK: AORTIC ARCH/ARCH VESSELS: Eqyt-ay-[id number] atherosclerotic plaque at the arch arch and [...] Naga Browning MD 10/10/19 Final result Normal [facility] EXAMINATION: CTA OF THE HEAD AND NECK [...] Initial FINDINGS: CTA NECK: AORTIC ARCH/ARCH VESSELS: Dmkb-[id number] atherosclerotic plaque at the arch arch and [...] fluid collection. The salmeron-white differentiation is maintained. [place] 1. No acute arterial abnormality or hemodynamically significant arterial stenosis in the head or neck. 2. No intracranial aneurysm. [place] Pri[place], Mhpn Incoming Radiant Results From [facility] - 10/10/2019 5:36 PM EDT EXAMINATION: CTA [...] Initial FINDINGS: CTA NECK: AORTIC ARCH/ARCH VESSELS: Qrtx-pi-[id number] atherosclerotic plaque at the arch arch and [...] head or neck. 2. No intracranial aneurysm. [place] Hemoglobin A1Con 10-10-2019 HbA1c (Bld) [Mass fraction] 111 mg/dL Normal [facility] Comment on above: Result Comment: The ADA and AACC recommend providing the estimated average glucose result to permit better patient understanding of their HBA1c result. Performed By: #### C DP, CP, LIP, TROPI, LIPRF, GLYHGB #### [employer] [address] [place], [place] [phone] Corset Fitter: Brandon Anaya MD HbA1c (Bld) [Mass fraction] 5.5 % Normal 4.0-6.0 [facility] Comment on above: Performed By: #### C DP, CP, LIP, TROPI, LIPRF, GLYHGB #### [employer] [address] [place] [address] Corset Fitter: Brandon Anaya MD Glucose [Mass/Vol] 111 mg/dL [place] Comment on above: The ADA and AACC rec ommend providing the estimated average glucose result to permit better patient understanding of their HBA1c result. HbA1c (Bld) [Mass fraction] 5.5 % 4 - 6 % [place] LACTIC ACID, WHOLE BLOODon 0 10-10-2019 Lactic Acid, Whole Blood 1.0 mmol/L 0.7 - 2.1 mmol/L [place] Lactic Acid,Whole Blon 10-09 Lactic Acid,Whole Bl 1.0 mmol/L Normal 0.7-2.1 [facility] Comment on above: Performed By: #### C DP, CP, LIP, TROPI, LIPRF, GLYHGB #### [employer] [address] [place], [place] [phone] Corset Fitter: Brandon Anaya MD Magnesiumon 10-10-2019 Magnesium [Mass/Vol] 2.1 mg/dL Normal 1.6-2.6 [facility] Comment on above: Performed By: #### C DP, CP, LIP, TROPI, LIPRF, GLYHGB #### [facility] [address] [place] [address] Corset Fitter: Brandon Anaya MD Magnesium [Mass/Vol] 2.1 mg/dL 1.6 - 2 .6 mg/dL [facility] 10[facility]10-2019 1. Subtle sclerosis subjacent to the L2 and L3 superior endplates is age-indeterminate and could represent trabecular condensation associated with acute or subacute endplate fractures. MRI of the lumbar spine is recommended for further evaluation. 2. No acute osseous abnormality of the sacrum or coccyx. 3. Osteopenia. [place] Pri[place], Mhpn Incoming Radiant Results From [facility] - 10/10/2019 8:19 PM EDT EXAMINATION: THREE [...] of the sacrum or coccyx. 3. [facility]openia. [facility] X RAY VIEWS OF THE [...] the urinary bladder. Atherosclerotic calcifications are present. [place] POC Glucose Fingerstickon Glucose [Mass/Vol] 159 mg/dL High 65 - 105 mg/dL [place] Interpretation and review of laboratory results Abnormal [place] Glucose [Mass/Vol] 186 mg/dL High 65 - 105 mg/dL [place] Interpretation and review of laboratory results Abnormal [place] Glucose [Mass/Vol] 135 mg/dL High 65 - 105 mg/dL [place] Interpretation and review of laboratory results Abnormal [place] Procalcitoninon 10-10-2019 Procalcitonin 0.15 ng/mL High <0.09 [facility] Comment on above: Result Comment: Suspected Sepsis: [...] entered into the Change in Procalcitonin Calculator (www.tkceje-jfm-pgctxcylmw.com) to determine the patient's Mortality Risk Prognosis In healthy neonates, plasma Procalcitonin (PCT) concentrations increase gradually after , reaching peak values at about 24 hours of age then decrease to normal values below 0.5 ng/mL by 48-72 hours of age. Performed By: #### C DP, CP, LIP, TROPI, LIPRF, GLYHGB #### [facility] [place] [address] Corset Fitter: Brandon Anaya MD Interpretation and review of laboratory results Abnormal [place] Procalcitonin 0.15 ng/mL High <0.09 [place] Comment on above: Suspected Sepsis: <0.50 [...] entered into the Change in Procalcitonin Calculator (www.aeruzt-oqm-emzocjgnds.com) to determine the patient's Mortality Risk Prognosis In healthy neonates, plasma Procalcitonin (PCT) concentrations increase gradually after , reaching peak values at about 24 hours of age then decrease to normal values below 0.5 ng/mL by 48-72 hours of age. Sedimentation Rateon 020 Sedimentation Rate 8 mm Normal 0-30 [facility] Comment on above: Performed By: #### C DP, CP, LIP, TROPI, LIPRF, GLYHGB #### [facility] [employer] [address] [place] [address] Corset Fitter: Brandon Anaya MD Sed Rate 8 mm 0 - 30 mm [place] TSH w/reflex to FT4on 2019 TSH Qn 1.05 m[IU]/L Normal 0.30-5.00 [facility] Comment on above: Performed By: #### C DP, CP, LIP, TROPI, LIPRF, GLYHGB #### [facility] [address] [place] [address] Corset Fitter: Brandon Anaya MD TSH with Reflexon 10-10-2019 TSH Qn 1.05 m[IU]/L [facility] [place] XR LUMBAR SPINE (2-3 VIEWS)o n [...] Naga Browning MD 10/10/19 Final result Normal [facility] XR SACRUM COCCYX (MIN 2 VIEW S)on [...] Naga Browning MD 10/10/19 Final result Normal [facility] Beta Hydroxybutyrateon 10-08 Beta Hydroxybutyrate 0.09 mmol/L Normal 0.02-0.27 [facility] Comment on above: Performed By: #### T OSMAR #### [employer] [address] [place] [address] Corset Fitter: Brandon Anaya MD Beta-Hydroxybutyrateon 10-08 Beta-Hydroxybutyrate 0.09 mmol/L 0.02 - 0.27 mmol/L [place] CBC WITH AUTO DIFFERENTIALon 10-09-2019 Basophils (Bld) [#/Vol] 0.03 10*3/uL [place] Basophils/100 WBC (Bld) 0 % 0 - 2 % [place] Differential Type NOT REPORTED [place] Eosinophils (Bld) [#/Vol] 10*3/uL [place] Eosinophils/100 WBC (Bld) 0 % Low 1 - 4 % [place] Erythrocyte distribution width (RBC) [Ratio] 14.2 % 11.8 - 14.4 % [place] Hematocrit (Bld) [Volume fraction] 44.6 % 36.3 - 47.1 % [place] Hemoglobin (Bld) [Mass/Vol] 14.2 g/dL 11.9 - 15.1 g/dL [place] Immature granulocytes (Bld) [#/Vol] 1 % High 0 [place] Immature granulocytes (Bld) [#/Vol] 0.06 10*3/uL [place] Interpretation and review of laboratory results Abnormal [place] Lymphocytes (Bld) [#/Vol] 0.97 10*3/uL Low [place] Lymphocytes/100 WBC (Bld) 13 % Low 24 - 43 % [place] MCH (RBC) [Entitic mass] 29.7 pg 25.2 - 33.5 pg [place] MCHC (RBC) [Mass/Vol] 31.8 g/dL 28.4 - 34.8 g/dL [place] MCV (RBC) [Entitic vol] 93.3 fL 82.6 - 102.9 fL [place] Monocytes (Bld) [#/Vol] 0.52 10*3/uL [place] Monocytes/100 WBC (Bld) 7 % 3 - 12 % [place] Platelet mean volume (Bld) [Entitic vol] 10.9 fL 8.1 - 13.5 fL [place] Platelets (Bld) [#/Vol] NOT REPORTED [place] Platelets (Bld) [#/Vol] 202 10*3/uL [place] RBC (Bld) [#/Vol] 4.78 10*6/uL 3.95 - 5.1 1 m/uL [place] RBC morphology finding Nom (Bld) NOT REPORTED [place] Segmented neutrophils/100 WBC (Bld) 79 % High 36 - 65 % [place] Segs Absolute 6.10 [place] WBC (Bld) [#/Vol] 0.0 10*3/uL 0.0 per 10 0 WBC [place] WBC (Bld) [#/Vol] 7.7 10*3/uL [place] WBC Morphology NOT REPORTED [place] CBC with Diffon 08-15-2020 Abs. Basophil 0.03 k/uL Normal 0.00-0.20 [facility] Comment on above: Performed By: #### C DP, CP, LIP, TROPI, LIPRF, GLYHGB #### [address] [address] Corset Fitter: Brandon Anaya MD Abs.Imm.Granulocyte 0.06 k/uL Normal 0.00-0.30 [facility] Comment on above: Performed By: #### C DP, CP, LIP, TROPI, LIPRF, GLYHGB #### [address] [address] Corset Fitter: Brandon Anaya MD Abs.Neutrophil (Seg) 6.10 k/uL Normal 1.50-8.10 [facility] Comment on above: Performed By: #### C DP, CP, LIP, TROPI, LIPRF, GLYHGB #### [address] [address] Corset Fitter: Brandon Anaya MD Basophils/100 WBC (Bld) 0 % Normal 0-2 [facility] Comment on above: Performed By: #### C DP, CP, LIP, TROPI, LIPRF, GLYHGB #### [address] [address] Corset Fitter: Brandon Anaya MD Eosinophils (Bld) [#/Vol] 10*3/uL Normal 0.00-0.44 [facility] Comment on above: Performed By: #### C DP, CP, LIP, TROPI, LIPRF, GLYHGB #### [address] [address] Corset Fitter: Brandon Anaya MD Eosinophils/100 WBC (Bld) 0 % Low 1-4 [facility] Comment on above: Performed By: #### C DP, CP, LIP, TROPI, LIPRF, GLYHGB #### [facility] [employer] [address] [place] [phone] Corset Fitter: Brandon Anaya MD Erythrocyte distribution width (RBC) [Ratio] 14.2 % Normal 11.8-14.4 [facility] Comment on above: Performed By: #### C DP, CP, LIP, TROPI, LIPRF, GLYHGB #### [address] [address] Corset Fitter: Brandon Anaya MD Hematocrit (Bld) [Volume fraction] 44.6 % Normal 36.3-47.1 [facility] Comment on above: Performed By: #### C DP, CP, LIP, TROPI, LIPRF, GLYHGB #### [address] [address] Corset Fitter: Brandon Anaya MD Hemoglobin (Bld) [Mass/Vol] 14.2 g/dL Normal 11.9-15.1 [facility] Comment on above: Performed By: #### C DP, CP, LIP, TROPI, LIPRF, GLYHGB #### [address] [address] Corset Fitter: Brandon Anaya MD Immature granulocytes (Bld) [#/Vol] 1 % High 0 [facility] Comment on above: Performed By: #### C DP, CP, LIP, TROPI, LIPRF, GLYHGB #### [address] [address] Corset Fitter: Brandon Anaya MD Lymphocytes (Bld) [#/Vol] 0.97 10*3/uL Low 1.10-3.70 [facility] Comment on above: Performed By: #### C DP, CP, LIP, TROPI, LIPRF, GLYHGB #### [address] [address] Corset Fitter: Brandon Anaya MD Lymphocytes/100 WBC (Bld) 13 % Low 24-43 [facility] Comment on above: Performed By: #### C DP, CP, LIP, TROPI, LIPRF, GLYHGB #### [facility] [employer] [address] [place] [address] Corset Fitter: Brandon Anaya MD MCH (RBC) [Entitic mass] 29.7 pg Normal 25.2-33.5 [facility] Comment on above: Performed By: #### C DP, CP, LIP, TROPI, LIPRF, GLYHGB #### [address] [address] Corset Fitter: Brandon Anaya MD MCHC (RBC) [Mass/Vol] 31.8 g/dL Normal 28.4-34.8 [facility] Comment on above: Performed By: #### C DP, CP, LIP, TROPI, LIPRF, GLYHGB #### [place] [address] Corset Fitter: Brandon Anaya MD MCV (RBC) [Entitic vol] 93.3 fL Normal 82.6-102.9 [facility] Comment on above: Performed By: #### C DP, CP, LIP, TROPI, LIPRF, GLYHGB #### [place] [address] Corset Fitter: Brandon Anaya MD Monocytes (Bld) [#/Vol] 0.52 10*3/uL Normal 0.10-1.20 [facility] Comment on above: Performed By: #### C DP, CP, LIP, TROPI, LIPRF, GLYHGB #### [address] [address] Corset Fitter: Brandon Anaya MD Monocytes/100 WBC (Bld) 7 % Normal 3-12 [facility] Comment on above: Performed By: #### C DP, CP, LIP, TROPI, LIPRF, GLYHGB #### [address] [address] Corset Fitter: Brandon Anaya MD Neutrophil (Seg) 79 % High 36-65 [facility] Comment on above: Performed By: #### C DP, CP, LIP, TROPI, LIPRF, GLYHGB #### [address] [address] Corset Fitter: Brandon Anaya MD NRBC Automated 0.0 per 100 WBC Normal 0.0 [facility] Comment on above: Performed By: #### C DP, CP, LIP, TROPI, LIPRF, GLYHGB #### [address] [address] Corset Fitter: Brandon Anaya MD Platelet mean volume (Bld) [Entitic vol] 10.9 fL Normal 8.1-13.5 [facility] Comment on above: Performed By: #### C DP, CP, LIP, TROPI, LIPRF, GLYHGB #### [address] [address] Corset Fitter: Brandon Anaya MD Platelets (Bld) [#/Vol] 202 10*3/uL Normal 138-453 [facility] Comment on above: Performed By: #### C DP, CP, LIP, TROPI, LIPRF, GLYHGB #### [address] [address] Corset Fitter: Brandon Anaya MD RBC (Bld) [#/Vol] 4.78 10*6/uL Normal 3.95-5.11 [facility] Comment on above: Performed By: #### C DP, CP, LIP, TROPI, LIPRF, GLYHGB #### [address] [address] Corset Fitter: Brandon Anaya MD WBC (Bld) [#/Vol] 7.7 10*3/uL Normal 3.5-11.3 [facility] Comment on above: Performed By: #### C DP, CP, LIP, TROPI, LIPRF, GLYHGB #### [address] [address] Corset Fitter: Brandon Anaya MD Auto Diff Performed NOT REPORTED Normal [facility] Comment on above: Performed By: #### C DP, CP, LIP, TROPI, LIPRF, GLYHGB #### [address] [address] Corset Fitter: Brandon Anaya MD Platelets (Bld) [#/Vol] NOT REPORTED Normal [facility] Comment on above: Performed By: #### C DP, CP, LIP, TROPI, LIPRF, GLYHGB #### [address] [address] Corset Fitter: Brandon Anaya MD RBC morphology finding Nom (Bld) NOT REPORTED Normal [facility] Comment on above: Performed By: #### C DP, CP, LIP, TROPI, LIPRF, GLYHGB #### [address] [address] Corset Fitter: Brandon Anaya MD WBC Morphology NOT REPORTED Normal [facility] Comment on above: Performed By: #### C DP, CP, LIP, TROPI, LIPRF, GLYHGB #### [address] [address] Corset Fitter: Brandon Anaya MD COVID-19, PCRon 10-09-2019 SARS-CoV-2 [place] SARS-CoV-2, PCR [place] SARS-CoV-2, Rapid Not Detected Not Detected [place], [place] Comment on above: Rapid NAAT: The [...] management decisions. Fact sheet for Healthcare Providers: https://www.fda.gov/media/370715/download Fact sheet for Patients: https://www.fda.gov/media/849349/download Methodology: Isothermal Nucleic Acid Amplification Source .NASOPHARYNGEAL SWAB [place], [place] CT CHEST PULMONARY EMBOLISM W CONTRASTon [...] Wendy Darby MD 10/09/19 Final result Normal [facility] No central or segmen rhett pulmonary embolus. No acute pulmonary process. Emphysema. [place], [place] EXAMINATION: CTA OF THE CHEST 10/09/2019 [...] consolidation. Bones: Thoracic spine degenerative changes. [facility] Incoming Radiant Results From [facility] - 10/09/2019 8:31 AM EDT EXAMINATION: CTA [...] pulmonary embolus. No acute pulmonary process. Emphysema. [employer], [employer] Comp Metabolic Profon 2019 (cont.) Normal [facility] Comment on above: Result Comment: Aver age GFR for 70 or more years old: 75 mL/min/1.73sq m Chronic Kidney Disease: <60 mL/min/1.73sq m Kidney failure: <15 mL/min/1.73sq m eGFR calculated using average adult body mass. Additional eGFR calculator available at: http://www.[employer].BUILD/multiple_crcl_2012.htm Performed By: #### C DP, CP, LIP, TROPI, LIPRF, GLYHGB #### [address] [phone] Corset Fitter: Brandon Anaya MD Albumin [Mass/Vol] 4.1 g/dL Normal 3.5-5.2 [facility] Comment on above: Performed By: #### C DP, CP, LIP, TROPI, LIPRF, GLYHGB #### [address] [address] Corset Fitter: Brandon Anaya MD Albumin/Globulin [Mass ratio] 1.6 {ratio} Normal 1.0-2.5 [facility] Comment on above: Performed By: #### C DP, CP, LIP, TROPI, LIPRF, GLYHGB #### [address] [address] Corset Fitter: Brandon Anaya MD Alkaline Phos 90 U/L Normal 35-104 [facility] Comment on above: Performed By: #### C DP, CP, LIP, TROPI, LIPRF, GLYHGB #### [address] [address] Corset Fitter: Brandon Anaya MD ALT [Catalytic activity/Vol] 15 U/L Normal 5-33 [facility] Comment on above: Performed By: #### C DP, CP, LIP, TROPI, LIPRF, GLYHGB #### [address] [address] Corset Fitter: Brandon Anaya MD Anion gap [Moles/Vol] 18 mmol/L High 9-17 [facility] Comment on above: Performed By: #### C DP, CP, LIP, TROPI, LIPRF, GLYHGB #### [address] [address] Corset Fitter: Brandon Anaya MD AST [Catalytic activity/Vol] 11 U/L Normal <32 [facility] Comment on above: Performed By: #### C DP, CP, LIP, TROPI, LIPRF, GLYHGB #### [address] [address] Corset Fitter: Brandon Anaya MD Bilirubin Ql (U) 0.39 mg/dL Normal 0.3-1.2 [facility] Comment on above: Performed By: #### C DP, CP, LIP, TROPI, LIPRF, GLYHGB #### [address] [address] Corset Fitter: Bradnon Anaya MD Calcium [Mass/Vol] 9.5 mg/dL Normal 8.6-10.4 [facility] Comment on above: Performed By: #### C DP, CP, LIP, TROPI, LIPRF, GLYHGB #### [address] [address] Corset Fitter: Brandon Anaya MD Chloride [Moles/Vol] 99 mmol/L Normal 98-107 [facility] Comment on above: Performed By: #### C DP, CP, LIP, TROPI, LIPRF, GLYHGB #### [address] [address] Corset Fitter: Brandon Anaya MD CO2 [Moles/Vol] 24 mmol/L Normal 20-31 [facility] Comment on above: Performed By: #### C DP, CP, LIP, TROPI, LIPRF, GLYHGB #### [facility] [employer] [address] [place] [phone] Corset Fitter: Brandon Anaya MD Creatinine [Mass/Vol] 0.63 mg/dL Normal 0.50-0.90 [facility] Comment on above: Performed By: #### C DP, CP, LIP, TROPI, LIPRF, GLYHGB #### [facility] [employer] [address] [place] [phone] Corset Fitter: Brandon Anaya MD GFR, Amer >60 Normal >60 [facility] Comment on above: Performed By: #### C DP, CP, LIP, TROPI, LIPRF, GLYHGB #### [facility] [employer] [address] [place] [phone] Corset Fitter: Brandon Anaya MD GFR,non Amer >60 Normal >60 [facility] Comment on above: Performed By: #### C DP, CP, LIP, TROPI, LIPRF, GLYHGB #### [facility] [employer] [address] [place] [phone] Corset Fitter: Brandon Anaya MD Glucose [Mass/Vol] 208 mg/dL High 70-99 [facility] Comment on above: Performed By: #### C DP, CP, LIP, TROPI, LIPRF, GLYHGB #### [facility] [employer] [address] [place] [phone] Corset Fitter: Brandon Anaya MD Potassium [Moles/Vol] 3.9 mmol/L Normal 3.7-5.3 [facility] Comment on above: Performed By: #### C DP, CP, LIP, TROPI, LIPRF, GLYHGB #### [facility] [employer] [address] [place] [phone] Corset Fitter: Brandon Anaya MD Protein [Mass/Vol] 6.6 g/dL Normal 6.4-8.3 [facility] Comment on above: Performed By: #### C DP, CP, LIP, TROPI, LIPRF, GLYHGB #### [facility] [employer] [address] [place] [phone] Corset Fitter: Brandon Anaya MD Sodium [Moles/Vol] 141 mmol/L Normal 135-144 [facility] Comment on above: Performed By: #### C DP, CP, LIP, TROPI, LIPRF, GLYHGB #### [facility] [address] [place], [place] [phone] Corset Fitter: Brandon Anaya MD Urea nitrogen [Mass/Vol] 17 mg/dL Normal 8-23 [facility] Comment on above: Performed By: #### C DP, CP, LIP, TROPI, LIPRF, GLYHGB #### [facility] [employer] [address] [place], [place] [phone] Corset Fitter: Brandon Anaya MD BUN/CRE Ratio NOT REPORTED Normal 9-20 [facility] Comment on above: Performed By: #### C DP, CP, LIP, TROPI, LIPRF, GLYHGB #### [facility] [employer] [address] [place], [place] [phone] Corset Fitter: Brandon Anaya MD Staging: NOT REPORTED Normal [facility] Comment on above: Performed By: #### C DP, CP, LIP, TROPI, LIPRF, GLYHGB #### [facility] [employer] [address] [place], [place] [phone] Corset Fitter: Brandon Anaya MD Comprehensive Metabolic Pane [facility] 10-09-2019 Albumin [Mass/Vol] 4.1 g/dL 3.5 - 5.2 g/dL [place] Albumin/Globulin [Mass ratio] 1.6 {ratio} [place] ALP [Catalytic activity/Vol] 90 U/L 35 - 104 U/L [place] ALT [Catalytic activity/Vol] 15 U/L 5 - 33 U/L [place] Anion gap [Moles/Vol] 18 mmol/L High 9 - 17 mmol/L [place] AST [Catalytic activity/Vol] 11 U/L <32 [place] Bilirubin Ql (U) 0.39 mg/dL 0.3 - 1.2 mg/dL [place] Bun/Cre Ratio NOT REPORTED [place] Calcium [Mass/Vol] 9.5 mg/dL 8.6 - 10. 4 mg/dL [place] Chloride [Moles/Vol] 99 mmol/L 98 - 10 7 mmol/L [place] CO2 [Moles/Vol] 24 mmol/L 20 - 31 mmol/L [place] Creatinine [Mass/Vol] 0.63 mg/dL 0.5 - 0.9 mg/dL [place] GFR >60 >60 mL/min [place] GFR Non- >60 >60 mL/min [place] GFR/1.73 sq M predicted among non-blacks MDRD (S/P/Bld) [Vol rate/Area] [place] Comment on above: Average GFR for 70 o r more years old: 75 mL/min/1.73sq m Chronic Kidney Disease: <60 mL/min/1.73sq m Kidney failure: <15 mL/min/1.73sq m eGFR calculated using average adult body mass. Additional eGFR calculator available at: http://www.[employer]/multiple_crcl_2012.htm GFR/1.73 sq M predicted among non-blacks MDRD (S/P/Bld) [Vol rate/Area] NOT REPORTED [place] Glucose [Mass/Vol] 208 mg/dL High 70 - 99 mg/dL [place] Interpretation and review of laboratory results Abnormal [place] Potassium [Moles/Vol] 3.9 mmol/L 3.7 - 5.3 mmol/L [place] Protein [Mass/Vol] 6.6 g/dL 6.4 - 8.3 g/dL [place] Sodium [Moles/Vol] 141 mmol/L 135 - 144 mmol/L [place] Urea nitrogen [Mass/Vol] 17 mg/dL 8 - 23 mg/dL [place] EKG 12 Leadon 10-09-2019 Atrial Rate 70 BPM [place] P Delong 54 degrees [place] P-R Interval 136 ms [place] Q-T Interval 432 ms [place] QRS Duration 80 ms [place] QTc Calculation (Bazett) 466 ms [place] R Delong -9 degrees [facility] T Delong 3 degrees [facility] Ventricular Rate 70 BPM [place] Prieto, Mhpn Incoming E kg Results From [facility] [place] - 10/09/2019 3:25 PM EDT Normal sinus rhythm Possible Left atrial enlargement Nonspecific ST abnormality Abnormal ECG No previous ECGs available [place] Normal sinus rhythm Possible Left atrial enlargement Nonspecific ST abnormality Abnormal ECG No previous ECGs available [place] LIPASEon 10-09-2019 Lipase [Catalytic activity/Vol] 48 U/L 13 - 60 U/L [place] Lipaseon 10-09-2019 Lipase [Catalytic activity/Vol] 48 U/L Normal 13-60 [facility] Comment on above: Performed By: #### C DP, CP, LIP, TROPI, LIPRF, GLYHGB #### [facility] [employer] [address] [place] [phone] Corset Fitter: Brandon Anaya MD [facility] Cholesterol [Mass/Vol] 229 mg/dL High <200 [facility] Comment on above: Result Comment: Cholesterol Guidelines: <200 Desirable 200-240 Borderline >240 Undesirable Performed By: #### C DP, CP, LIP, TROPI, LIPRF, GLYHGB #### [facility] [employer] [address] [place] [address] [phone] Corset Fitter: Brandon Anaya MD Cholesterol in HDL [Mass/Vol] 50 mg/dL Normal >40 [facility] Comment on above: Result Comment: HDL Guidelines: <40 Undesirable 40-59 Borderline >59 Desirable Performed By: #### C DP, CP, LIP, TROPI, LIPRF, GLYHGB #### [facility] [employer] [address] [place] [phone] Corset Fitter: Brandon Anaya MD Cholesterol in LDL [Mass/Vol] 143 mg/dL High 0-130 [facility] Comment on above: Result Comment: LDL Guidelines: <100 Desirable 100-129 Near to/above Desirable 130-159 Borderline >159 Undesirable Direct (measured) LDL and calculated LDL are not interchangeable tests. Performed By: #### C DP, CP, LIP, TROPI, LIPRF, GLYHGB #### [address] [phone] Corset Fitter: Brandon Anaya MD Cholesterol.total/Chol esterol in HDL [Mass ratio] 4.6 {ratio} Normal <5 [facility] Comment on above: Performed By: #### C DP, CP, LIP, TROPI, LIPRF, GLYHGB #### [address] [phone] Corset Fitter: Brandon Anaya MD Triglyceride,Fasting 182 mg/dL High <150 [facility] Comment on above: Result Comment: Triglyceride Guidelines: <150 Desirable 150-199 Borderline 200-499 High >499 Very high Based on AHA Guidelines for fasting triglyceride, November 2011. Performed By: #### C DP, CP, LIP, TROPI, LIPRF, GLYHGB #### [facility] [employer] [address] [place] [phone] Corset Fitter: Brandon Anaya MD Cholesterol in VLDL [Mass/Vol] NOT REPORTED Normal -30 [facility] Comment on above: Performed By: #### C DP, CP, LIP, TROPI, LIPRF, GLYHGB #### [address] [address] Corset Fitter: Brandon Anaya MD Lipid, Fastingon 10-09-2019 Cholesterol [Mass/Vol] 229 mg/dL High <200 [place] Comment on above: Cholesterol Guidelines: <200 Desirable 200-240 Borderline >240 Undesirable Cholesterol in HDL [Mass/Vol] 50 mg/dL >40 [place] Comment on above: HDL Guidelines: <40 Undesirable 40-59 Borderline >59 Desirable Cholesterol in LDL [Mass/Vol] 143 mg/dL High 0 - 130 mg/dL [place] Comment on above: LDL Guidelines: <100 Desirable 100-129 Near to/above Desirable 130-159 Borderline >159 Undesirable Direct (measured) LDL and calculated LDL are not interchangeable tests. Cholesterol in VLDL [Mass/Vol] NOT REPORTED High 1 - 30 mg/dL [place] Cholesterol.total/Chol esterol in HDL [Mass ratio] 4.6 {ratio} <5 [place] Interpretation and review of laboratory results Abnormal [place] Triglyceride, Fasting 182 mg/dL High <150 [place] Comment on above: Triglyceride Guidelines: <150 Desirable 150-199 Borderline 200-499 High >499 Very high Based on AHA Guidelines for fasting triglyceride, November 2011. POC Glucose Fingerstickon Glucose [Mass/Vol] 126 mg/dL High 65 - 105 mg/dL [place] Interpretation and review of laboratory results Abnormal [place] [id number] 10-09-2019 SARS-CoV-2 Normal [facility] Comment on above: Performed By: #### C OVID #### [facility] [employer] [address] [place] [phone] Corset Fitter: Brandon Anaya MD SARS-CoV-2,Rapid Not Detected Normal NOTDET [facility] Comment on above: Result Comment: Rapid NAAT: [...] management decisions. Fact sheet for Healthcare Providers: https://www.fda.gov/media/576117/download Fact sheet for Patients: https://www.fda.gov/media/827145/download Methodology: Isothermal Nucleic Acid Amplification Performed By: #### C OVID #### [address] [address] Corset Fitter: Brandon Anaya MD SARS-CoV-2 Source .NASOPHARYNGEAL SWAB Normal [facility] Comment on above: Performed By: #### C OVID #### [address] [phone] Corset Fitter: Brandon Anaya MD Troponinon 10-09-2019 Troponin I.cardiac [Mass/Vol] 10 ng/L Normal 0-14 [facility] Comment on above: Result Comment: High Sensitivity Troponin values cannot be compared with other Troponin methodologies. Patients with high levels of Biotin oral intake (i.e >5mg/day) may have falsely decreased Troponin levels. Samples collected within 8 hours of biotin intake may require additional information for diagnosis. Performed By: #### T OSMAR #### [address] [address] Corset Fitter: Brandon Anaya MD Troponin I.cardiac [Mass/Vol] NOT REPORTED Normal <0.03 [facility] Comment on above: Performed By: #### T OSMAR #### [address] [address] Corset Fitter: Brandon Anaya MD Troponin I.cardiac [Mass/Vol] 10 ng/L Normal 0-14 [facility] Comment on above: Result Comment: High Sensitivity Troponin values cannot be compared with other Troponin methodologies. Patients with high levels of Biotin oral intake (i.e >5mg/day) may have falsely decreased Troponin levels. Samples collected within 8 hours of biotin intake may require additional information for diagnosis. Performed By: #### C DP, CP, LIP, TROPI, LIPRF, GLYHGB #### [facility] [address] [phone] Corset Fitter: Brandon Anaya MD Troponin I.cardiac [Mass/Vol] NOT REPORTED [place] Troponin T.cardiac [Mass/Vol] NOT REPORTED <0.03 ng/mL [place] Troponin, High Sensitivity 10 ng/L 0 - 14 ng/L [place] Comment on above: High Sensitivity Troponin values cannot be compared with other Troponin methodologies. Patients with high levels of Biotin oral intake (i.e >5mg/day) may have falsely decreased Troponin levels. Samples collected within 8 hours of biotin intake may require additional information for diagnosis. Troponin I.cardiac [Mass/Vol] NOT REPORTED Normal <0.03 [facility] Comment on above: Performed By: #### C DP, CP, LIP, TROPI, LIPRF, GLYHGB #### [facility] [employer] [address] [place] [address] [phone] Corset Fitter: Brandon Anaya MD Troponin I.cardiac [Mass/Vol] NOT REPORTED [place] Troponin T.cardiac [Mass/Vol] NOT REPORTED <0.03 ng/mL [place] Troponin, High Sensitivity 10 ng/L 0 - 14 ng/L [place] Comment on above: High Sensitivity Troponin values cannot be compared with other Troponin methodologies. Patients with high levels of Biotin oral intake (i.e >5mg/day) may have falsely decreased Troponin levels. Samples collected within 8 hours of biotin intake may require additional information for diagnosis. UA w/Reflex Cultureon 2019 Acetoacetic Acid,Ur TRACE Abnormal NEG [facility] Comment on above: Performed By: #### C DP, CP, LIP, TROPI, LIPRF, GLYHGB #### [facility] [employer] [address] [place] [address] [phone] Corset Fitter: Brandon Anaya MD Bilirubin, SemiQt,Ur Negative Normal NEG [facility] Comment on above: Performed By: #### C DP, CP, LIP, TROPI, LIPRF, GLYHGB #### [facility] [employer] [address] [place] [phone] Corset Fitter: Brandon Anaya MD Color (U) YELLOW Normal YEL [facility] Comment on above: Performed By: #### C DP, CP, LIP, TROPI, LIPRF, GLYHGB #### [address] [address] Corset Fitter: Brandon Anaya MD Glucose Ql (U) Negative Normal NEG [facility] Comment on above: Performed By: #### C DP, CP, LIP, TROPI, LIPRF, GLYHGB #### [address] [address] Corset Fitter: Brandon Anaya MD Hemoglobin, Ur Negative Normal NEG [facility] Comment on above: Performed By: #### C DP, CP, LIP, TROPI, LIPRF, GLYHGB #### [address] [address] Corset Fitter: Brandon Anaya MD Leukocyte esterase Test strip Ql (U) Negative Normal NEG [facility] Comment on above: Performed By: #### C DP, CP, LIP, TROPI, LIPRF, GLYHGB #### [facility] [employer] [address] [place] [phone] Corset Fitter: Brandon Anaya MD Nitrite,Ur Negative Normal NEG [facility] Comment on above: Performed By: #### C DP, CP, LIP, TROPI, LIPRF, GLYHGB #### [facility] [employer] [address] [place] [phone] Corset Fitter: Brandon Anaya MD pH (U) 5.5 [pH] Normal 5.0-8.0 [facility] Comment on above: Performed By: #### C DP, CP, LIP, TROPI, LIPRF, GLYHGB #### [facility] [employer] [address] [place] [phone] Corset Fitter: Brandon Anaya MD Protein Ql (U) 1+ Abnormal NEG [facility] Comment on above: Performed By: #### C DP, CP, LIP, TROPI, LIPRF, GLYHGB #### [facility] [employer] [address] [place] [phone] Corset Fitter: Brandon Anaya MD Specific gravity (U) [Rel density] 1.086 High 1.005-1.030 [facility] Comment on above: Performed By: #### C DP, CP, LIP, TROPI, LIPRF, GLYHGB #### [address] [address] Corset Fitter: Brandon Anaya MD Turbidity CLEAR Normal CLEAR [facility] Comment on above: Performed By: #### C DP, CP, LIP, TROPI, LIPRF, GLYHGB #### [address] [address] Corset Fitter: Brandon Anaya MD Urobilinogen,Ur Normal Normal NORM [facility] Comment on above: Performed By: #### C DP, CP, LIP, TROPI, LIPRF, GLYHGB #### [facility] [employer] [address] [place] [phone] Corset Fitter: Brandon Anaya MD Comment NOT REPORTED Normal [facility] Comment on above: Performed By: #### C DP, CP, LIP, TROPI, LIPRF, GLYHGB #### [facility] [employer] [address] [place] [phone] Corset Fitter: Brandon Anaya MD URINALYSIS, MICROon 10-09-19 20 Amorphous, UA NOT REPORTED None [facility] [place] Bacteria, UA NOT REPORTED None [facility] [place] Casts UA NOT REPORTED [facility] [place] Crystals, UA NOT REPORTED None /HPF [facility] Epithelial Cells UA 10 TO 20 [facility] [place] Mucus, UA NOT REPORTED None [facility] [place] Other Observations UA NOT REPORTED NOT REQ. M [place] RBC (U) [#/Vol] 0 TO 2 [place] Renal Epithelial, UA NOT REPORTED 0 /HPF [place] Trichomonas, UA NOT REPORTED None [place] WBC, UA 0 TO 2 [place] Yeast, UA NOT REPORTED None [place] ABDOMEN LIMITEDon 020 [place] ABDOMEN LIMITED EXAMINATION: RIGHT UPPER QUADRANT ULTRASOUND 10/09/2019 3:35 pm COMPARISON: None. 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 LIVER, GALLBLADDER, PANCREASon 10-09-2019 EXAMINATION: RIGHT U PPER QUADRANT ULTRASOUND 10/09/2019 3:35 pm COMPARISON: None. 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 [place] Unremarkable right u pper quadrant ultrasound. [place] Pri[place], Mhpn Incoming Radiant Results From [employer] - 10/09/2019 4:01 PM EDT EXAMINATION: RIGHT UPPER QUADRANT ULTRASOUND 10/09/2019 3:35 pm COMPARISON: None. HISTORY: ORDERING SYSTEM PROVIDED HISTORY: RUQ and epigastric pain, r/o cholecystitis, gall bladder, pancreas animal pathology teacher PROVIDED HISTORY: RUQ and epigastric pain, r/o [...] ascites. IMPRESSION: Unremarkable right upper quadrant ultrasound. [place] Urinalysis Reflex to Culture on 10-09-2019 Bilirubin Urine Negative NEGATIVE [place] Color, UA YELLOW YELLOW [place] Glucose, Ur Negative NEGATIVE [place] Interpretation and review of laboratory results Abnormal [place] Ketones Ql (U) TRACE Abnormal NEGATIVE [place] Leukocyte esterase Test strip Ql (U) Negative NEGATIVE [place] Nitrite, Urine Negative NEGATIVE [place] pH, UA 5.5 [place] Protein (U) [Mass/Vol] 1+ Abnormal NEGATIVE [place] Specific [place], UA 1.086 High [place] Turbidity UA CLEAR CLEAR [place] Urinalysis Comments NOT REPORTED [place] Urine Hgb Negative NEGATIVE [place] Urobilinogen, Urine Normal Normal [place] Urinalysis,Microon 0 ----- Normal [facility] Comment on above: Performed By: #### C DP, CP, LIP, TROPI, LIPRF, GLYHGB #### [facility] [employer] [address] [place] [phone] Corset Fitter: Brandon Anaya MD Epithelial cells LM.HPF (Urine sed) [#/Area] 10 TO 20 Normal 0-5 [facility] Comment on above: Performed By: #### C DP, CP, LIP, TROPI, LIPRF, GLYHGB #### [facility] [employer] [address] [place] [phone] Corset Fitter: Brandon Anaya MD RBC (U) [#/Vol] 0 TO 2 Normal 0-2 [facility] Comment on above: Performed By: #### C DP, CP, LIP, TROPI, LIPRF, GLYHGB #### [facility] [employer] [address] [place] [phone] Corset Fitter: Brandon Anaya MD WBC (U) [#/Vol] 0 TO 2 Normal 0-5 [facility] Comment on above: Performed By: #### C DP, CP, LIP, TROPI, LIPRF, GLYHGB #### [facility] [employer] [address] [place] [phone] Corset Fitter: Brandon Anaya MD Amorphous sediment LM Ql (Urine sed) NOT REPORTED Normal [facility] Comment on above: Performed By: #### C DP, CP, LIP, TROPI, LIPRF, GLYHGB #### [facility] [employer] [address] [place] [phone] Corset Fitter: Brandon Anaya MD Bacteria LM.HPF (Urine sed) [#/Area] NOT REPORTED Normal [facility] Comment on above: Performed By: #### C DP, CP, LIP, TROPI, LIPRF, GLYHGB #### [facility] [employer] [address] [place] [phone] Corset Fitter: Brandon Anaya MD Casts LM.LPF (Urine sed) [#/Area] NOT REPORTED Normal 0-2 [facility] Comment on above: Performed By: #### C DP, CP, LIP, TROPI, LIPRF, GLYHGB #### [facility] [address] [place] [phone] Corset Fitter: Brandon Anaya MD Crystals LM Nom (Urine sed) NOT REPORTED Normal NONE [facility] Comment on above: Performed By: #### C DP, CP, LIP, TROPI, LIPRF, GLYHGB #### [facility] [employer] [address] [place] [phone] Corset Fitter: Brandon Anaya MD Epithelial, Renal NOT REPORTED Normal 0 [facility] Comment on above: Performed By: #### C DP, CP, LIP, TROPI, LIPRF, GLYHGB #### [facility] [employer] [address] [place] [phone] Corset Fitter: Brandon Anaya MD Mucus Strands NOT REPORTED Normal [facility] Comment on above: Performed By: #### C DP, CP, LIP, TROPI, LIPRF, GLYHGB #### [facility] [employer] [address] [place] [address] Corset Fitter: Brandon Anaya MD Other Observations NOT REPORTED Normal NREQ [facility] Comment on above: Performed By: #### C DP, CP, LIP, TROPI, LIPRF, GLYHGB #### [facility] [address] [place] [address] Corset Fitter: Brandon Anaya MD Trichomonas NOT REPORTED Normal NONE [facility] Comment on above: Performed By: #### C DP, CP, LIP, TROPI, LIPRF, GLYHGB #### [facility] [employer] [address] [place] [address] Corset Fitter: Brandon Anaya MD Yeast LM Ql (Urine sed) NOT REPORTED Normal NONE [facility] Comment on above: Performed By: #### C DP, CP, LIP, TROPI, LIPRF, GLYHGB #### [facility] [place] [address] Corset Fitter: Brandon Anaya MD XR ABDOMEN (KUB) (SINGLE [...] Naga Browning MD 10/09/19 Final result Normal [facility] No evidence of bowel obstruction. [place], [place] EXAMINATION: ONE SUP INE XRAY VIEW(S) OF THE ABDOMEN 10/09/2019 7:17 pm COMPARISON: None. HISTORY: ORDERING SYSTEM PROVIDED HISTORY: r/o SBO TECHNOLOGIST PROVIDED HISTORY: r/o SBO Reason for Exam: port Supine FINDINGS: Nonspecific, nonobstructive bowel gas pattern with paucity of bowel gas. Atherosclerotic calcifications. Retained contrast in the urinary bladder. No acute osseous abnormality. [place], [place] Prieto, Mhpn Incoming Radiant Results From [employer] - 10/09/2019 7:35 PM EDT EXAMINATION: [...] abnormality. IMPRESSION: No evidence of bowel obstruction. [place], [place] Aldosteroneon 07-02-2017 Aldosterone 4.8 ng/dL Normal [facility] Comment on [...] gender-specific referenceintervals for this test in the [facility] Test Directory(BookNow).Performed by [facility],[address] [place] [id number] uro.BookNow, Nik Rosas MD, Lab. DirectorPerformed at [facility] [address] [facility], [place] [id number] ([phone] Performed By: #### C ORTI ####[facility] [place] [address] #### MARYAM, AREN ####[facility] [place] [address] Renin Activityon 07-02-2017 Renin Activity 0.1 ng/mL/hr Normal [facility] Comment on above: Result Comment: (NOT [...] activity when angiotensinogen isdecreased.See Compliance Statement D: [email or web address] by [facility],[address] [place] [id number] rom.BookNow, Nik Rosas MD, Lab. DirectorPerformed at [facility] [address] [facility] [place] [address] Performed By: #### C ORTI ####[facility] [place], [place] [id number] #### MARYAM, AKIN ####[facility] [facility] [place] [address] Basic Metab w/rfx MGon 06-29 (cont.) Normal [facility] Comment on above: Result Comment: Aver age GFR for 70 or more years old: 75 mL/min/1.73sq mChronic Kidney Disease: <60 mL/min/1.73sq mKidney failure: <15 mL/min/1.73sq meGFR calculated using average adult body mass. Additional eGFR calculator available at:http://www.Flicstart/multiple_crcl_2012.htmPerformed at [facility] [address] [place] [address] Performed By: #### C DP, BMPX, TROPI ####[address] [address] Anion gap 10 mmol/L Normal 9-17 [facility] Comment on above: Performed By: #### C DP, BMPX, TROPI ####[address] [address] Calcium 9.1 mg/dL Normal 8.6-10.4 [facility] Comment on above: Performed By: #### C DP, BMPX, TROPI ####[address] [address] Chloride 106 mmol/L Normal 98-107 [facility] Comment on above: Performed By: #### C DP, BMPX, TROPI ####[address] [address] CO2 26 mmol/L Normal 20-31 [facility] Comment on above: Performed By: #### C DP, BMPX, TROPI ####[address] [address] Creatinine 0.66 mg/dL Normal 0.50-0.90 [facility] Comment on above: Performed By: #### C DP, BMPX, TROPI ####[address] [address] eGFR (non-black) mL/min/{1.73_m2} Normal >60 [facility] Comment on above: Performed By: #### C DP, BMPX, TROPI ####[facility] [facility] [place] [address] Glucose mass conc 104 mg/dL High 70-99 [facility] Comment on above: Performed By: #### C DP, BMPX, TROPI ####[facility] [place] [address] Potassium molar conc 4.1 mmol/L Normal 3.7-5.3 [facility] Comment on above: Performed By: #### C DP, BMPX, TROPI ####[facility] [place] [address] Sodium 142 mmol/L Normal 135-144 [facility] Comment on above: Performed By: #### C DP, BMPX, TROPI ####[facility] [place] [address] Urea nitrogen 13 mg/dL Normal 8-23 [facility] Comment on above: Performed By: #### C DP, BMPX, TROPI ####[facility] [place] [address] BUN/CRE Ratio NOT REPORTED Normal 9-20 [facility] Comment on above: Performed By: #### C DP, BMPX, TROPI ####[facility] [place] [address] Staging: NOT REPORTED Normal [facility] Comment on above: Performed By: #### C DP, BMPX, TROPI ####[facility] [place] [address] CBC with Diffon 06-29-2017 Abs. Basophil 0.00 k/uL Normal 0.0-0.2 [facility] Comment on above: Result Comment: Perf ormed at [facility] [address] [place] [address] Performed By: #### C DP, BMPX, TROPI ####[facility] [place] [address] Abs.Neutrophil (Seg) 3.80 k/uL Normal 1.3-9.1 [facility] Comment on above: Performed By: #### C DP, BMPX, TROPI ####[address] [address] Basophils/100 WBC Auto (Bld) 1 % Normal 0-2 [facility] Comment on above: Performed By: #### C DP, BMPX, TROPI ####[facility] [place] [address] Eosinophils 0.20 10*3/uL Normal 0.0-0.4 [facility] Comment on above: Performed By: #### C DP, BMPX, TROPI ####[facility] [place] [address] Eosinophils/100 leukocytes 2 % Normal 0-4 [facility] Comment on above: Performed By: #### C DP, BMPX, TROPI ####[facility] [place] [address] Erythrocyte distribution width Auto Ratio (RBC) 14.5 % Normal 11.5-14.9 [facility] Comment on above: Performed By: #### C DP, BMPX, TROPI ####[facility] [place] [address] Erythrocytes (RBC) 4.36 10*6/uL Normal 4.0-5.2 [facility] Comment on above: Performed By: #### C DP, BMPX, TROPI ####[facility] [place] [address] Hematocrit (HCT) 38.3 % Normal 36-46 [facility] Comment on above: Performed By: #### C DP, BMPX, TROPI ####[address] [address] Hemoglobin mass conc (Bld) 12.9 g/dL Normal 12.0-16.0 [facility] Comment on above: Performed By: #### C DP, BMPX, TROPI ####[address] [address] Lymphocytes 2.20 10*3/uL Normal 1.0-4.8 [facility] Comment on above: Performed By: #### C DP, BMPX, TROPI ####[address] [address] Lymphocytes/100 leukocytes 32 % Normal 24-44 [facility] Comment on above: Performed By: #### C DP, BMPX, TROPI ####[address] [address] MCH 29.5 pg Normal 26-34 [facility] Comment on above: Performed By: #### C DP, BMPX, TROPI ####[address] [address] MCHC mass conc (RBC) 33.6 g/dL Normal 31-37 [facility] Comment on above: Performed By: #### C DP, BMPX, TROPI ####[address] [address] MCV 87.8 fL Normal 80-100 [facility] Comment on above: Performed By: #### C DP, BMPX, TROPI ####[facility] [employer] [place] [address] Monocytes 0.50 10*3/uL Normal 0.1-1.3 [facility] Comment on above: Performed By: #### C DP, BMPX, TROPI ####[facility] [place], [place] [address] [place] [address] Monocytes/100 leukocytes 8 % High 1-7 [facility] Comment on above: Performed By: #### C DP, BMPX, TROPI ####[facility] [place] [address] Neutrophil (Seg) 57 % Normal 36-66 [facility] Comment on above: Performed By: #### C DP, BMPX, TROPI ####[facility] [place] [address].[place] [address] Platelet mean volume (PMV) 8.5 fL Normal 6.0-12.0 [facility] Comment on above: Performed By: #### C DP, BMPX, TROPI ####[address] [address] Platelets 219 10*3/uL Normal 150-450 [facility] Comment on above: Performed By: #### C DP, BMPX, TROPI ####[facility] [place] [address].[place] [address] WBC (Leukocytes) 6.7 10*3/uL Normal 3.5-11.0 [facility] Comment on above: Performed By: #### C DP, BMPX, TROPI ####[address] [address] Auto Diff Performed NOT REPORTED Normal [facility] Comment on above: Performed By: #### C DP, BMPX, TROPI ####[address] [place] [address] Erythrocyte morphology NOT REPORTED Normal [facility] Comment on above: Performed By: #### C DP, BMPX, TROPI ####[address] [address] Erythrocytes (RBC) NOT REPORTED Normal [facility] Comment on above: Performed By: #### C DP, BMPX, TROPI ####[address] [address] Granulocytes/100 WBC (Bld) NOT REPORTED Normal 0.00-0.30 [facility] Comment on above: Performed By: #### C DP, BMPX, TROPI ####[address] [address] Immature granulocytes #/vol (Bld) NOT REPORTED Normal 0 [facility] Comment on above: Performed By: #### C DP, BMPX, TROPI ####[address] [address] Platelets NOT REPORTED Normal [facility] Comment on above: Performed By: #### C DP, BMPX, TROPI ####[address] [address] WBC Morphology NOT REPORTED Normal [facility] Comment on above: Performed By: #### C DP, BMPX, TROPI ####[address] [address] Troponinon 06-29-2017 Troponin I.cardiac mass conc Normal [facility] Comment on above: [...] may require additional information for diagnosis.Performed at [address] [address] Performed By: #### C DP, BMPX, TROPI ####[address] [address] Troponin T.cardiac mass conc ug/L Normal <0.03 [facility] Comment on above: Result Comment: Trop onin T results cannot be compared to Troponin-I results. Performed By: #### C DP, BMPX, TROPI ####[address] [address] Troponin I.cardiac mass conc Normal [facility] Comment on above: [...] may require additional information for diagnosis.Performed at [address] [address] Performed By: #### T ROPI ####[address] [address] Troponin T.cardiac mass conc ug/L Normal <0.03 [facility] Comment on above: Result Comment: Trop onin T results cannot be compared to Troponin-I results. Performed By: #### T ROPI ####[address] [address] XR CHEST (2 VW)on 06-29-2017 XR CHEST [...] by:FABIANA Oliverigned by:Zaire Dominguez MD//18Final result Normal [facility] Basic Metab w/rfx MGon 06-28 (cont.) Normal [facility] Comment on above: Result Comment: Aver age GFR for 70 or more years old: 75 mL/min/1.73sq mChronic Kidney Disease: <60 mL/min/1.73sq mKidney failure: <15 mL/min/1.73sq meGFR calculated using average adult body mass. Additional eGFR calculator available at:http://www.[employer].BUILD/multiple_crcl_2012.htmPerformed at [facility] [address] [place] [address] Performed By: #### C DP, BMPX ####[facility] [place] [address] Anion gap 13 mmol/L Normal 9-17 [facility] Comment on above: Performed By: #### C DP, BMPX ####[facility] [place] [address] Calcium 8.7 mg/dL Normal 8.6-10.4 [facility] Comment on above: Performed By: #### C DP, BMPX ####[facility] [place] [address] Chloride 106 mmol/L Normal 98-107 [facility] Comment on above: Performed By: #### C DP, BMPX ####[facility] [place] [address] CO2 22 mmol/L Normal 20-31 [facility] Comment on above: Performed By: #### C DP, BMPX ####[facility] [place] [address] Creatinine 0.53 mg/dL Normal 0.50-0.90 [facility] Comment on above: Performed By: #### C DP, BMPX ####[address] [address] eGFR (non-black) mL/min/{1.73_m2} Normal >60 [facility] Comment on above: Performed By: #### C DP, BMPX ####[address] [address] Glucose mass conc 168 mg/dL High 70-99 [facility] Comment on above: Performed By: #### C DP, BMPX ####[address] [address] Potassium molar conc 3.7 mmol/L Normal 3.7-5.3 [facility] Comment on above: Performed By: #### C DP, BMPX ####[address] [address] Sodium 141 mmol/L Normal 135-144 [facility] Comment on above: Performed By: #### C DP, BMPX ####[address] [address] Urea nitrogen 11 mg/dL Normal 8-23 [facility] Comment on above: Performed By: #### C DP, BMPX ####[address] [place] [address] BUN/CRE Ratio NOT REPORTED Normal 9-20 [facility] Comment on above: Performed By: #### C DP, BMPX ####[facility] [place] [address] Staging: NOT REPORTED Normal [facility] Comment on above: Performed By: #### C DP, BMPX ####[address] [address] Basic Metabolic Profon 06-28 (cont.) Normal [facility] Comment on above: Result Comment: Aver age GFR for 70 or more years old: 75 mL/min/1.73sq mChronic Kidney Disease: <60 mL/min/1.73sq mKidney failure: <15 mL/min/1.73sq meGFR calculated using average adult body mass. Additional eGFR calculator available at:http://www.Flicstart/multiple_crcl_2012.htmPerformed at [facility] [address] [place] [address] Performed By: #### C DP, BMP, TROPI, TSHX ####[facility] [place] [address] Anion gap 13 mmol/L Normal 9-17 [facility] Comment on above: Performed By: #### C DP, BMP, TROPI, TSHX ####[facility] [place] [address] Calcium 9.2 mg/dL Normal 8.6-10.4 [facility] Comment on above: Performed By: #### C DP, BMP, TROPI, TSHX ####[address] [address] Chloride 102 mmol/L Normal 98-107 [facility] Comment on above: Performed By: #### C DP, BMP, TROPI, TSHX ####[facility] [facility] [place] [address] CO2 26 mmol/L Normal 20-31 [facility] Comment on above: Performed By: #### C DP, BMP, TROPI, TSHX ####[facility] [place] [address].[place] [address] Creatinine 0.61 mg/dL Normal 0.50-0.90 [facility] Comment on above: Performed By: #### C DP, BMP, TROPI, TSHX ####[address] [place] [address] eGFR (non-black) mL/min/{1.73_m2} Normal >60 [facility] Comment on above: Performed By: #### C DP, BMP, TROPI, TSHX ####[address] [address] Glucose mass conc 108 mg/dL High 70-99 [facility] Comment on above: Performed By: #### C DP, BMP, TROPI, TSHX ####[address] [place] [address] Potassium molar conc 4.7 mmol/L Normal 3.7-5.3 [facility] Comment on above: Performed By: #### C DP, BMP, TROPI, TSHX ####[facility] [place] [address].[place] [address] Sodium 141 mmol/L Normal 135-144 [facility] Comment on above: Performed By: #### C DP, BMP, TROPI, TSHX ####[address] [place] [address] Urea nitrogen 16 mg/dL Normal 8-23 [facility] Comment on above: Performed By: #### C DP, BMP, TROPI, TSHX ####[facility] [facility] [place] [address] BUN/CRE Ratio NOT REPORTED Normal 9-20 [facility] Comment on above: Performed By: #### C DP, BMP, TROPI, TSHX ####[facility] [place] [address] Staging: NOT REPORTED Normal [facility] Comment on above: Performed By: #### C DP, BMP, TROPI, TSHX ####[facility] [place] [address] CBC with Diffon - Abs. Basophil 0.00 k/uL Normal 0.0-0.2 [facility] Comment on above: Result Comment: Perf ormed at [facility] [address] [place] [address] Performed By: #### C DP, BMPX ####[facility] [place] [address] Abs.Neutrophil (Seg) 5.50 k/uL Normal 1.3-9.1 [facility] Comment on above: Performed By: #### C DP, BMPX ####[facility] [place] [address] Basophils/100 WBC Auto (Bld) 1 % Normal 0-2 [facility] Comment on above: Performed By: #### C DP, BMPX ####[facility] [place] [address] Eosinophils 0.10 10*3/uL Normal 0.0-0.4 [facility] Comment on above: Performed By: #### C DP, BMPX ####[facility] [place] [address] Eosinophils/100 leukocytes 2 % Normal 0-4 [facility] Comment on above: Performed By: #### C DP, BMPX ####[facility] [place] [address] Erythrocyte distribution width Auto Ratio (RBC) 14.8 % Normal 11.5-14.9 [facility] Comment on above: Performed By: #### C DP, BMPX ####[facility] [place] [address] Erythrocytes (RBC) 4.47 10*6/uL Normal 4.0-5.2 [facility] Comment on above: Performed By: #### C DP, BMPX ####[facility] [place] [address] Hematocrit (HCT) 39.8 % Normal 36-46 [facility] Comment on above: Performed By: #### C DP, BMPX ####[facility] [place] [address] Hemoglobin mass conc (Bld) 13.3 g/dL Normal 12.0-16.0 [facility] Comment on above: Performed By: #### C DP, BMPX ####[facility] [place] [address] Lymphocytes 1.90 10*3/uL Normal 1.0-4.8 [facility] Comment on above: Performed By: #### C DP, BMPX ####[facility] [place] [address] Lymphocytes/100 leukocytes 23 % Low 24-44 [facility] Comment on above: Performed By: #### C DP, BMPX ####[facility] [place] [address] MCH 29.7 pg Normal 26-34 [facility] Comment on above: Performed By: #### C DP, BMPX ####[facility] [facility] [place] [address] MCHC mass conc (RBC) 33.3 g/dL Normal 31-37 [facility] Comment on above: Performed By: #### C DP, BMPX ####[facility] [facility] [place] [address] MCV 89.1 fL Normal 80-100 [facility] Comment on above: Performed By: #### C DP, BMPX ####[facility] [place] [address].[place] [address] Monocytes 0.50 10*3/uL Normal 0.1-1.3 [facility] Comment on above: Performed By: #### C DP, BMPX ####[facility] [place] [address].[place] [address] Monocytes/100 leukocytes 6 % Normal 1-7 [facility] Comment on above: Performed By: #### C DP, BMPX ####[address] [address] Neutrophil (Seg) 68 % High 36-66 [facility] Comment on above: Performed By: #### C DP, BMPX ####[facility] [place] [address].[place] [address] Platelet mean volume (PMV) 8.6 fL Normal 6.0-12.0 [facility] Comment on above: Performed By: #### C DP, BMPX ####[facility] [place] [address].[place] [address] Platelets 238 10*3/uL Normal 150-450 [facility] Comment on above: Performed By: #### C DP, BMPX ####[facility] [place], [place] [address] [employer] [place] [address] WBC (Leukocytes) 8.0 10*3/uL Normal 3.5-11.0 [facility] Comment on above: Performed By: #### C DP, BMPX ####[facility] [place] [address] Auto Diff Performed NOT REPORTED Normal [facility] Comment on above: Performed By: #### C DP, BMPX ####[facility] [place] [address] Erythrocyte morphology NOT REPORTED Normal [facility] Comment on above: Performed By: #### C DP, BMPX ####[address] [address] Erythrocytes (RBC) NOT REPORTED Normal [facility] Comment on above: Performed By: #### C DP, BMPX ####[address] [address] Granulocytes/100 WBC (Bld) NOT REPORTED Normal 0.00-0.30 [facility] Comment on above: Performed By: #### C DP, BMPX ####[address] [address] Immature granulocytes #/vol (Bld) NOT REPORTED Normal 0 [facility] Comment on above: Performed By: #### C DP, BMPX ####[facility] [place] [address] Platelets NOT REPORTED Normal [facility] Comment on above: Performed By: #### C DP, BMPX ####[address] [address] WBC Morphology NOT REPORTED Normal [facility] Comment on above: Performed By: #### C DP, BMPX ####[address] [address] Abs. Basophil 0.10 k/uL Normal 0.0-0.2 [facility] Comment on above: Result Comment: Perf ormed at [facility] [address] [place] [address] Performed By: #### C DP, BMP, TROPI, TSHX ####[facility] [place] [address] Abs.Neutrophil (Seg) 4.20 k/uL Normal 1.3-9.1 [facility] Comment on above: Performed By: #### C DP, BMP, TROPI, TSHX ####[facility] [place] [address] Basophils/100 WBC Auto (Bld) 1 % Normal 0-2 [facility] Comment on above: Performed By: #### C DP, BMP, TROPI, TSHX ####[facility] [place] [address] Eosinophils 0.20 10*3/uL Normal 0.0-0.4 [facility] Comment on above: Performed By: #### C DP, BMP, TROPI, TSHX ####[facility] [place] [address] Eosinophils/100 leukocytes 2 % Normal 0-4 [facility] Comment on above: Performed By: #### C DP, BMP, TROPI, TSHX ####[facility] [place] [address] Erythrocyte distribution width Auto Ratio (RBC) 14.7 % Normal 11.5-14.9 [facility] Comment on above: Performed By: #### C DP, BMP, TROPI, TSHX ####[facility] [place] [address] Erythrocytes (RBC) 4.38 10*6/uL Normal 4.0-5.2 [facility] Comment on above: Performed By: #### C DP, BMP, TROPI, TSHX ####[address] [address] Hematocrit (HCT) 38.7 % Normal 36-46 [facility] Comment on above: Performed By: #### C DP, BMP, TROPI, TSHX ####[facility] [place] [address] Hemoglobin mass conc (Bld) 12.9 g/dL Normal 12.0-16.0 [facility] Comment on above: Performed By: #### C DP, BMP, TROPI, TSHX ####[address] [address] Lymphocytes 2.60 10*3/uL Normal 1.0-4.8 [facility] Comment on above: Performed By: #### C DP, BMP, TROPI, TSHX ####[address] [address] Lymphocytes/100 leukocytes 34 % Normal 24-44 [facility] Comment on above: Performed By: #### C DP, BMP, TROPI, TSHX ####[facility] [place] [address] MCH 29.6 pg Normal 26-34 [facility] Comment on above: Performed By: #### C DP, BMP, TROPI, TSHX ####[address] [address] MCHC mass conc (RBC) 33.4 g/dL Normal 31-37 [facility] Comment on above: Performed By: #### C DP, BMP, TROPI, TSHX ####[address] [address] MCV 88.4 fL Normal 80-100 [facility] Comment on above: Performed By: #### C DP, BMP, TROPI, TSHX ####[address] [address] Monocytes 0.60 10*3/uL Normal 0.1-1.3 [facility] Comment on above: Performed By: #### C DP, BMP, TROPI, TSHX ####[address] [address] Monocytes/100 leukocytes 8 % High 1-7 [facility] Comment on above: Performed By: #### C DP, BMP, TROPI, TSHX ####[address] [address] Neutrophil (Seg) 55 % Normal 36-66 [facility] Comment on above: Performed By: #### C DP, BMP, TROPI, TSHX ####[facility] [place] [address] Platelet mean volume (PMV) 8.6 fL Normal 6.0-12.0 [facility] Comment on above: Performed By: #### C DP, BMP, TROPI, TSHX ####[address] [address] Platelets 229 10*3/uL Normal 150-450 [facility] Comment on above: Performed By: #### C DP, BMP, TROPI, TSHX ####[address] [address] WBC (Leukocytes) 7.7 10*3/uL Normal 3.5-11.0 [facility] Comment on above: Performed By: #### C DP, BMP, TROPI, TSHX ####[address] [address] Auto Diff Performed NOT REPORTED Normal [facility] Comment on above: Performed By: #### C DP, BMP, TROPI, TSHX ####[address] [address] Erythrocyte morphology NOT REPORTED Normal [facility] Comment on above: Performed By: #### C DP, BMP, TROPI, TSHX ####[address] [address] Erythrocytes (RBC) NOT REPORTED Normal [facility] Comment on above: Performed By: #### C DP, BMP, TROPI, TSHX ####[address] [address] Granulocytes/100 WBC (Bld) NOT REPORTED Normal 0.00-0.30 [facility] Comment on above: Performed By: #### C DP, BMP, TROPI, TSHX ####[address] [address] Immature granulocytes #/vol (Bld) NOT REPORTED Normal 0 [facility] Comment on above: Performed By: #### C DP, BMP, TROPI, TSHX ####[address] [address] Platelets NOT REPORTED Normal [facility] Comment on above: Performed By: #### C DP, BMP, TROPI, TSHX ####[address] [address] WBC Morphology NOT REPORTED Normal [facility] Comment on above: Performed By: #### C DP, BMP, TROPI, TSHX ####[address] [address] Cortisolon 06-28-2017 Cortisol 4.7 ug/dL Normal 2.7-18.4 [facility] Comment on above: Result Comment: Lukasz isol Reference Range: AM 6.0-18.4 PM 2.7-10.5Performed at [address] [place] [place] [address] Performed By: #### C ORTI ####[address] [address] #### AALD, AREN ####[address] [address] Collection Info. NOT REPORTED Normal [facility] Comment on above: Performed By: #### C ORTI ####[address] [address] #### AALD, AREN ####[address] [address] Renin Activityon 06-28-2017 Comment: NOT REPORTED Normal [facility] Comment on above: Performed By: #### C ORTI ####[address] [address] #### AALD, AREN ####[address] [address] TSH w/reflex to FT4on 2017 Thyroid stimulating hormone (TSH) 2.65 m[IU]/L Normal 0.30-5.00 [facility] Comment on above: Result Comment: Perf ormed at [facility] [address] [place] [address] Performed By: #### C DP, BMP, TROPI, TSHX ####[address] [address] Troponinon 2018 Troponin I.cardiac mass conc Normal [facility] Comment on above: [...] may require additional information for diagnosis.Performed at [facility] [address] [place] [address] Performed By: #### T ROPI ####[address] [address] Troponin T.cardiac mass conc ug/L Normal <0.03 [facility] Comment on above: Result Comment: Trop onin T results cannot be compared to Troponin-I results. Performed By: #### T ROPI ####[address] [address] Troponin I.cardiac mass conc Normal [facility] Comment on above: [...] may require additional information for diagnosis.Performed at [address] [place] [address] Performed By: #### T ROPI ####[address] [place] [address] Troponin T.cardiac mass conc ug/L Normal <0.03 [facility] Comment on above: Result Comment: Trop onin T results cannot be compared to Troponin-I results. Performed By: #### T ROPI ####[address] [address] Troponin I.cardiac mass conc Normal [facility] Comment on above: [...] may require additional information for diagnosis.Performed at [address] [address] Performed By: #### C DP, BMP, TROPI, TSHX ####[address] [address] Troponin T.cardiac mass conc ug/L Normal <0.03 [facility] Comment on above: Result Comment: Trop onin T results cannot be compared to Troponin-I results. Performed By: #### C DP, BMP, TROPI, TSHX ####[address] [address] UA w/Reflex Cultureon 2017 Acetaminophen mass conc Negative Normal NEG [facility] Comment on above: Performed By: #### U AX ####[address] [address] Bilirubin (direct) Negative Normal NEG [facility] Comment on above: Performed By: #### U AX ####[address] [address] Comment Microscopic exam not performed based on chemical results unless requested in Normal [facility] Comment on above: Result Comment: orig inal order.Performed at [address] [address] Performed By: #### U AX ####[address] [address] Hemoglobin mass conc (Bld) Negative Normal NEG [facility] Comment on above: Performed By: #### U AX ####[address] [facility] [place] [address] Nitrite,Ur Negative Normal NEG [facility] Comment on above: Performed By: #### U AX ####[facility] [place] [address], [place] [address] Turbidity CLEAR Normal CLEAR [facility] Comment on above: Performed By: #### U AX ####[facility] [place] [address] [place] [address] Urine, color YELLOW Normal YEL [facility] Comment on above: Performed By: #### U AX ####[address] [place] [address] Urine, glucose presence Negative Normal NEG [facility] Comment on above: Performed By: #### U AX ####[address] [place] [address] Urine, leukocyte esterase presence Negative Normal NEG [facility] Comment on above: Performed By: #### U AX ####[address] [place] [address] Urine, pH 5.5 [pH] Normal 5.0-8.0 [facility] Comment on above: Performed By: #### U AX ####[address] [place] [address] Urine, protein presence Negative Normal NEG [facility] Comment on above: Performed By: #### U AX ####[address] [place] [address] Urine, specific gravity 1.011 Normal 1.000-1.030 [facility] Comment on above: Performed By: #### U AX ####[address] [address] Urobilinogen,Ur Normal Normal NORM [facility] Comment on above: Performed By: #### U AX ####[facility] [place] [address] Vital Signs Date Time Vital Sign Value Performing Clinician Facility 04-08-2023 10:25-0500 Body height 162.56 cm MD Adina Bunch Work Phone: [facility] 04-08-2023 10:25-0500 Body mass index (BMI) [Ratio] 26.7 kg/m2 MD Adina Bunch Work Phone: [facility] 04-08-2023 10:25-0500 Body weight 70.76 kg MD Adina Bunch Work Phone: [facility] 10-16-2019 15:45-0400 BP Diastolic 64 mm[Hg] [place] 10-16-2019 15:45-0400 BP Systolic 154 mm[Hg] [place] 10-16-2019 08:25-0400 Body Temperature 98.01 [degF] [place], [place] 10-16-2019 08:25-0400 Pulse (Heart Rate) 70 /min [place], [place] 10-16-2019 08:25-0400 Pulse Oximetry 97 % [place] 10-16-2019 08:25-0400 Respiratory Rate 20 /min [place], [place] 10-16-2019 06:15-0400 BMI (Body Mass Index) 25.51 kg/m2 [place], [place] 10-16-2019 06:15-0400 Body weight 67.4 kg [place] 10-15-2019 15:22-0400 Height 162.6 cm [place] 10-13-2019 16:07-0400 Respiratory rate NOT REPORTED [facility] Comment on above: Performed By: #### CDP, CP, LIP, TROPI, LIPRF, GLYHGB #### [facility] [address] [place] [address] Corset Fitter: Brandon Anaya MD 10-13-2019 14:24-0400 Respiratory rate NOT REPORTED Yoon Mercado [facility] [place] Encounters Encounter Date Encounter Type Care Provider Facility Start: 12-05-2023 Evaluation and manag ement of inpatient HANI NELL [facility] Start: 12-05-2023 End: 12-06-2023 Evaluation and management of inpatient DANIKA DIAB [facility] Start: 12-02-2023 End: 12-02-2023 ambulatory DUSTY YOUNG [facility] Start: 04-24-2023 End: 04-24-2023 ambulatory Anju Lees Facility:[facility] Start: 04-17-2023 End: 04-17-2023 ambulatory CURRY A FABIENNE Not Available Start: 04-17-2023 End: 04-17-2023 ambulatory MD Adina Bunch Work Phone: [facility] Work Phone: Start: 04-17-2023 End: 04-17-2023 Patient encounter procedure MD Adina Bunch Work Phone: [facility] Work Phone: Start: 04-08-2023 End: 04-08-2023 ambulatory MD Adina Bunch Work Phone: [facility] Work Phone: Start: 04-08-2023 End: 04-08-2023 Patient encounter procedure MD Adina Bunch Work Phone: [facility] Work Phone: Start: 04-08-2023 End: 04-08-2023 ambulatory MD Adina Bunch Work Phone: [facility] Work Phone: Start: 04-08-2023 End: 04-08-2023 Patient encounter procedure MD Adina Bunch Work Phone: [facility] Start: 02-13-2023 End: 02-13-2023 ambulatory DENISHA KELLY Not Available Start: 01-15-2023 End: 01-15-2023 ambulatory CURRY Yo PETJACQUELINEI Not Available Start: 01-06-2023 End: 01-06-2023 ambulatory CURRY Yo PETITTI Not Available Start: 01-06-2023 End: 01-06-2023 [...] and management of inpatient DUGLAS S JUDIE [facility] Start: 10-09-2019 End: 10-16-2019 Evaluation and management of inpatient Yoon Mercado Work Phone: [facility] Comment on above: Abdominal aortic ane urysm (AAA) without rupture (HCC) (Primary Dx); Acute low back pain, unspecified back pain laterality, unspecified whether sciatica present; Vertigo; Nausea and vomiting, intractability of vomiting not specified, unspecified vomiting type; Hypertensive urgency Start: 06-27-2017 End: 06-29-2017 Evaluation and management of inpatient ADINA Ramirez [facility]onne [facility] Procedures Date Procedure Procedure Detail Performing Clinician Start: 04-08-2023 Plain X-ray of right hand MD Adina Bunch Work Phone: Start: 10-16-2019 Blood count complete auto&auto difrntl wbc DUGLAS JUDIE Start: 10-16-2019 Comprehensive metabo lic panel DUGLAS JUDIE Start: 10-16-2019 Culture bacterial quanttative colony count urine DUGLSA JUDIE Start: 10-16-2019 Urnls dip stick/tabl et [...] strip DUGLAS JUDIE Start: 10-15-2019 STRAIGHT CATH DUGLASYOLANDA NELSON Start: 10-15-2019 DIETARY NUTRITION SUPPLEMENTS DUGLAS JUDIE [...] JUDIE Start: 10-15-2019 STRAIGHT CATH DUGLAS RA NELSON Start: 10-15-2019 BASIC METABOLIC PANE L W/ [...] any combination ph pco2 po2 co2 hco3 Dharandy Mares Work Phone: Start: 10-13-2019 Antibody mycoplsm Alfonso Kendrick Work Phone: Start: 10-13-2019 Gluc bld [...] JUDIE Start: 10-13-2019 Assay of magnesium Mura farhan Morris Work Phone: Start: 10-13-2019 BASIC METABOLIC PANE L W/ REFLEX TO MG FOR LOW K Denys Morris Work Phone: Start: 10-13-2019 Blood count complete auto&auto difrntl wbc Denys Morris Work Phone: Start: 10-13-2019 INTAKE AND OUTPUT [...] dip stick/tabl et reagent auto microscopy Denys Morris Work Phone: Start: 10-12-2019 Glucose blood reagen [...] 10-12-2019 Dup-scan artl braydon abdl/pel/scrot&/rpr orgn com Denys Porandla Work Phone: Start: 10-12-2019 Assay of [...] Phone: Start: 10-12-2019 Assay of magnesium Mura zainarisrocioa Porandla Work Phone: Start: 10-12-2019 Assay of [...] Start: 10-10-2019 Sedimentation rate r bc automated Alfonsoamanda Hammond Erazo Work Phone: Start: 10-10-2019 Ct head/brain w/o co ntrast material Jimmy Chirri Work Phone: Start: 10-10-2019 Ct angiography neck w/contrast/noncontrast Alfonsoamanda Hammond Erazo Work Phone: Start: 10-10-2019 Glucose blood reagen t strip DUGLSA JUDIE Start: 10-10-2019 IP CONSULT TO NEUROLOGY [...] fda spec home use DUGLAS JUDEI Start: 10-10-2019 DAILY WEIGHTS DUGLAS RA THORE [...] dip stick/tabl et reagent auto microscopy Denys Morris Work Phone: Start: 10-09-2019 Urnls dip stick/tabl et rgnt auto w/o microscopy Denys Morris Work Phone: Start: 10-09-2019 PATIENT STATUS (FROM ED OR OR/PROCEDURAL) DUGLAS JUDIE Start: 10-09-2019 IP CONSULT TO INDUSTRIAL HYGIENE ENGINEER AL MEDICINE DUGLAS JUDIE Start: 10-09-2019 Ct thorax w/contrast material DUGLAS JUDIE Start: 10-09-2019 Assay of troponin quantitative DUGLAS JUDIE Start: 10-09-2019 Ketone bodies serum quantitative DUGLAS JUDIE Start: 10-09-2019 COVID- DUGLAS RAT HORE Start: 10-09-2019 Ecg routine [...] VASCUL AR SURGERY DUGLAS JUDIE Start: 10-09-2019 COVID- Elizabeth camacho Work Phone: Start: 10-09-2019 Ecg [...] HO Y Start: 06-28-2017 IP CONSULT TO INDUSTRIAL HYGIENE ENGINEER AL MEDICINE ADINA HOY Start: 06-28-2017 [...] HOY Start: 06-27-2017 INSERT PERIPHERAL IV DO UGLAS HOY Plan of Treatment Date Care Activity Detail Author Start: 04-08-2023 Plain X-ray of right hand XR hand RT min 3V* [facility] Start: 04-08-2023 XR Hand - right GE 3 Views [facility] Start: 10-14-2020 Creatinine measurement Creatinine mo nitoring [place], [place] Start: 10-14-2020 Potassium monitoring Potassium monit [place]ing [place] Start: 10-26-2019 Influenza vaccination Flu vaccine (# 1) [place] Start: 08-16-2018 Annual Wellness Visi t (AWV) Annual Wellness Visit (AWV) [place] Start: 05-23-2008 Pneumococcal 65+ yea rs Vaccine (1 of 1 - PPSV23) Pneumococcal 65+ years Vaccine (1 of 1 - PPSV23) [place] Start: 05-23-1998 Screening for osteoporosis DEXA (modify frequency per FRAX score) [place] Start: 05-23-1993 Shingles Vaccine (1 of 2) Shingles Vaccine (1 of 2) [place] Start: 05-23-1962 DTaP/Tdap/Td vaccine (1 - Tdap) DTaP/Tdap/Td vaccine (1 - Tdap) [place] End: 10-11-2019 ALBUMIN, CSF ALBUMIN, CSF Lab Routine One Time for 1 Occurrences starting 10/11/2019 until 10/11/2019 [place] Comment on above: One Time for 1 Occur rences starting 10/11/2019 until 10/11/2019 Basic Metabolic Pane l w/ Reflex to MG Basic Metabolic Panel w/ Reflex to MG Lab Routine Daily until discontinued starting 10/10/2019, 7 completed [place] Comment on above: Daily until disconti nued starting 10/10/2019, 7 completed CBC auto differential CBC auto d ifferential Lab Routine Daily until discontinued starting 10/10/2019, 7 completed [place] Comment on above: Daily until disconti nued starting 10/10/2019, 7 completed Culture, Blood 1 [place], [place] End: 10-16-2019 Culture, Urine Culture, Urine Microbiology Routine One Time for 1 Occurrences starting 10/16/2019 until 10/16/2019 [place] Comment on above: One Time for 1 Occur rences starting 10/16/2019 until 10/16/2019 Culture, Urine Culture, Urine Microbiology [employer] Label Print 10/16/2019 1:08 PM EDT [place] Nebulizer therapy HHN Treatment Respiratory Care Routine As Needed until discontinued starting 10/11/2019 [place] Comment on above: As Needed until disc ontinued starting 10/11/2019 Oxygen therapy [[facility]] Initiate Oxygen Therapy Protocol Respiratory Care Routine Daily until discontinued starting 10/09/2019 [facility] [place] [place] Comment on above: Daily until disconti nued starting 10/09/2019 POCT Glucose [facility] [place] Comment on above: As Needed until disc ontinued starting 10/09/2019 4X Daily (AC & HS) u ntil discontinued starting 10/09/2019 Immunizations Immunization Date Immunization Notes Care Provider Fa cili 12-20-2020 COVID-19 mRNA-1273 (Moderna) MD Adina Bunch Work Phone: [facility] 04-21-2020 COVID-19 mRNA-1273 (Moderna) MD Adina Bunch Work Phone: [facility] 03-24-2020 COVID-19 mRNA-1273 (Moderna) MD Adina Bunch Work Phone: [facility] Payers Date Payer Category Payer Medicare [id number] 2014 Medicare [id number] 1961 Medicare [id number] 1961 Medicare [id number] 1961 Self-pay 1945 Unknown [id number] 2.16.8 [id number] 1943 Unknown [id number] 2.16.84 [id number] 1943 Unknown [id number] 2.16.84 [id number] 1943 Unknown [id number] 2.16.84 [id number] 1943 Unknown [id number] 2.16.84 [id number] 1943 Unknown [id number] 2.16.84 0.1.183519.3.579.2.593 1943 Unknown [id number] 2.16.84 [id number] 1943 Unknown [id number] 2.16.840 .[id number] 1943 Unknown [id number] 2.16.840 .[id number] 1943 Unknown [id number] 2.16.840. [id number] 1943 Unknown [id number] 2.16.840. [id number] Unknown [id number] 2.16.8 40.1.127101.3.579.2.531 Unknown [id number] 2.16.8 40.1.194766.3.579.2.531 Unknown [id number] 2.16.8 [id number] Social History Date Type Detail Facility Start: 10-09-2019 Tobacco smoking stat [facility] Never smoker [place] Start: 10-09-2019 Tobacco use and exposure Never used [place] Start: 10-09-2019 Alcohol intake Current non-dr reimbursement consultant of alcohol (finding) [place] Sex Assigned At Not on file [place] Exposure to SARS-CoV -2 (event) Not sure [place] Start: 1945 Sex Assigned At Female F [facility] Start: 04-17-2023 Tobacco smoking stat [facility] Ex-smoker (finding) [facility] Clinical Notes 05-18-2020 to 12-06-2023 Note Date & Type Note Facility 12-06-2023 Note Hospital Medicine Discharge Summary Final Discharge Diagnosis: Chest pain, likely non cardiac based on cardiac cath Recent NSVT Admission Diagnosis: Unstable angina (CMS/HCC) [I20.0] Hospital course: Zachary Maynard is a 78 y.o. female with Pmhx of Afib on Eliquis, HTN, T2DM, NSVT, COPD who presents with complaint of palpitations and chest pain. Patient reports for past couple months has had intermittent episodes palpitations and chest pain associated with shortness of breath, lightheadedness, neck pain and occipital headache. Pain is described as sharp 8/10, substernal and radiates to back between should blades. Pain is unrelated to activity and lasts seconds to minutes, with neck and head pain lasting minutes to hours. Patient additionally reports recent weight gain from 145lb to 157lb. Attests to abdominal bloating and orthopnea. Denies current edema but has had in past for which she used to take diuretics. Patient has been in and out of hospital for past few weeks as palpitations and chest pain have worsened. Was noted top have had cough productive of greenish sputum at outside facility 1 week ago which had been present for approximately 3 weeks prior which resolved following treatment with azithromycin. Patient had Holter monitor between 11/18-12/01 which was significant for nonsustained ventricular tachycardia. Recent echocardiogram performed on 11/25 indicated EF 70-75% with no wall motion abnormalities. On admission patient vitals were signifcant for tachycardia. Initial laboratory workup indicated normal troponin 0.01, elevated BNP 555, Hdb 9.6. CXR was negative for acute cardiopulmonary process. EKG indicate sinus rhythm without ST abnormalities. Patient has had multiple bouts of NSVT per telemetry as well as reported multiple incidence of recurrent chest pain requiring 4x nitroglycerin overnight. Patient underwent cardiac cath on 12/04: Stable non-obstructive coronary artery disease. Normal left filling pressures. Normal right filling pressures. No pulmonary hypertension. Normal cardiac output and cardiac index. Controlled systemic hypertension. Patient to be discharged home today and to F/U with cardiology in 1-2 weeks Surgical, Invasive or Diagnostic Procedures Done During Admission: Cardiac Cath Consultations During Admission: Cardiology Dear Dr. Julio C MD, [facility] is advised to follow up with you within 1-2 weeks. Items to follow up in ambulatory setting: None Follow-up with: Cardiology Scheduled appointments: No future appointments. Your medication list CONTINUE taking these medications Instructions Last Dose Given Next Dose Due albuterol 90 mcg/actuation inhaler amiodarone 200 mg tablet Commonly known as: Pacerone Start taking on: December 02, 2023 Take 2 tablets (400 mg) by mouth two times daily for 14 days, THEN 1 tablet (200 mg) in the morning. amLODIPine 10 mg tablet Commonly known as: Norvasc Eliquis 5 mg tablet Generic drug: apixaban Ensure Active Protein-Muscle liquid Generic drug: nutritional drink ezetimibe 10 mg tablet Commonly known as: Zetia isosorbide mononitrate ER 30 mg 24 hr tablet Commonly known as: Imdur memantine 28 mg capsule,sprinkle,ER 24hr Commonly known as: Namenda XR metFORMIN 500 mg tablet Commonly known as: Glucophage metoprolol tartrate 50 mg tablet Commonly known as: Lopressor nitroglycerin 0.4 mg SL tablet Commonly known as: Nitrostat rOPINIRole 0.5 mg tablet Commonly known as: Requip Spiriva with HandiHaler 18 mcg inhalation capsule Generic drug: tiotropium STOP taking these medications hydroCHLOROthiazide 25 mg tablet Commonly known as: HYDRODiuril spironolactone 100 mg tablet Commonly known as: Aldactone Zachary is allergic to avelox [moxifloxacin] and demerol [meperidine]. Disposition: Home or Self Care () Discharge Condition: Stable Code Status: Full Code Diagnostic Results Hematology: Results from last 7 days Lab Units 12/06/23 0402 12/05/23 0335 WBC AUTO 10*3/uL 5.95 6.53 HEMOGLOBIN g/dL 9.3* 9.6* HEMATOCRIT % 29.4* 31.1* MCV fL 88.0 90.7 PLATELETS AUTO 10*3/uL 304 299 INR -- 1.14* Chemistry: Results from last 7 days Lab Units 12/05/23 0856 12/05/23 0335 SODIUM mmol/L 140 140 POTASSIUM mmol/L 4.0 4.1 CHLORIDE mmol/L 107 107 CO2 mmol/L 29 27 BUN mg/dL 14 15 CREATININE mg/dL 1.09 1.15 GLUCOSE mg/dL 91 90 MAGNESIUM mg/dL -- 1.9 CALCIUM mg/dL 9.0 8.9 Results from last 7 days Lab Units 12/05/23 0335 AST U/L 9* ALT U/L 4* ALK PHOS U/L 78 BILIRUBIN TOTAL mg/dL 0.6 Diet at the time of discharge: regular diet and cardiac diet/diabetic Activity: Normal activity as tolerated Objective Blood pressure 133/78, pulse 67, temperature 36.4 ???C (97.5 ???F), temperature source Temporal, resp. rate 16, height 1.6 m (5' 2.99 ), weight 71.4 kg (157 lb 6.4 oz), SpO2 96 %. General: Alert and in no acute distress Cardiology: Normal r (more content not included)... [facility] 12-05-2023 Note Patient: Zachary russell Procedure Information Date/Time: 12/05/23 1530 Procedures: Coronary angiography Right heart cath Location: [facility] UNDER[facility]ADU[facility]N 3 / [facility] (Cath) Providers: Moises Shore MD Clinical information reviewed: Tobacco Allergies Meds Med Hx Surg Hx Fam Hx Soc Hx Physical Exam Airway Mallampati: III TM distance: >3 FB Neck ROM: full Cardiovascular Rhythm: regular Rate: normal (-) murmur, peripheral edema Dental Pulmonary Breath sounds clear to auscultation Abdominal - normal exam Anesthesia Plan ASA 3 other (Conscious sedation. ) Additional Equipment Requests [facility] 12-05-2023 Note 12/05/23 1115 Admission Assessment Questions Verify insurance with patient Yes Do you understand medical disease or what brought you into the hospital? Yes Who is your current PCP? Adina Bunch MD Can I schedule a follow up appointment for you at the time of discharge? No Do you understand why you are taking your current medications? No Are you taking your medications as prescribed? No Did patient provide teach back? No Pharmacy Bedside Delivery Status Not Interested Does the patient have a employment case manager assigned to them through their insurance? No Living Arrangement (Current/Prior to Hospitalization) Private residence;Home self care (lives w/ in one story home. 3 entry steps) Does the patient have history of HHC or SNF? Yes (HHC in past) Assistive Device Cane;Walker;Wheelchair;Grab bars;Other (Comment) (shower chair) Patient's goal for discharge Home Was patient reminded that goal for discharge is 11am? No Does the patient have transportation at discharge? Yes Type of Residence Private residence Is PT/OT appropriate? No Is PT/OT ordered? No Is SW consult appropriate? No Is SW consult ordered? No Do you understand the benefits of MyChart? Yes Were you able to send link and activate MyChart? No [facility] 12-05-2023 Note Hospital Medicine History and Physical 12/05/2023 3:06 AM THE HOSPITALIST TEAM PREFERS TO USE [employer] FOR NON-URGENT COMMUNICATION 7AM-7PM. IF I DO NOT RESPOND WITHIN 20 MINUTES OR URGENT MATTERS, PLEASE CALL THROUGH THE FACILITY MAINTENANCE MECHANIC. FROM 7PM-7AM, PLEASE PAGE [phone](COVR). Chief Complaint Chest pain History of Present Illness Zachary Maynard is an 78 y.o. female who came from [facility] with chest pain. She was recently admitted at [facility] for new onset atrial fibrillation with rapid ventricular response and was started on amiodarone and Eliquis for anticoagulation. Since then, she reports having multiple daily episodes of substernal chest pain radiating to her back, pain is aching/pressure, last 30 seconds to 2 minutes each episode, there is associated shortness of breath and diaphoresis during his episodes. She was seen at her primary care physician's office earlier when she was having an episode of chest pain and was also noted to be hypoxic with an O2 sat of 88% on room air. She was sent to the ED for further evaluation at that time. In the ED, patient's respiratory status has been stable. She did receive nitroglycerin for an episode of chest pain and that helped alleviate her pain. She has been in atrial fibrillation that is rate controlled. She saw Dr. Young recently and the plan was for her to undergo a cath due to NSVT. The patient was sent to [facility] for higher level of care after discussing concern about unstable angina with cardiology. Echocardiogram from 11/26/2023 notable for EF of 70 to 75% with no regional wall motion abnormality and mild MR. Recent holter monitor showed episodes of nonsustained V. Tach chest x-ray from December 04, 2023 notable for hyperextended lungs with mild bibasilar infiltrate versus atelectasis. Stable cardiomegaly. Lab workup from December 04, 2023 notable for troponin x 2 within normal limits, proBNP of 1497 Past surgical history: Hysterectomy Social history: Former smoker who quit 15 years ago and had 30-jdel-urwl history of smoking; no alcohol use, no illicit drug use Family history: Mom had CAD Review of System and Physical Exam Temp: [36.6 ???C (97.9 ???F)] 36.6 ???C (97.9 ???F) Heart Rate: [67-102] 68 Resp: [16-24] 16 BP: (174-176)/(68-82) 175/68 Physical Exam Vitals reviewed. Constitutional: Appearance: Normal appearance. She is normal weight. HENT: Head: Normocephalic and atraumatic. Right Ear: External ear normal. Left Ear: External ear normal. Nose: Nose normal. Mouth/Throat: Mouth: Mucous membranes are dry. Pharynx: Oropharynx is clear. Eyes: Extraocular Movements: Extraocular movements intact. Conjunctiva/sclera: Conjunctivae normal. Pupils: Pupils are equal, round, and reactive to light. Cardiovascular: Rate and Rhythm: Normal rate. Rhythm irregular. Pulses: Normal pulses. Heart sounds: Normal heart sounds. Pulmonary: Effort: Pulmonary effort is normal. Breath sounds: Normal breath sounds. Abdominal: General: Abdomen is flat. Bowel sounds are normal. Palpations: Abdomen is soft. Musculoskeletal: General: Normal range of motion. Cervical back: Normal range of motion and neck supple. Right lower leg: No edema. Left lower leg: No edema. Skin: General: Skin is warm. Capillary Refill: Capillary refill takes less than 2 seconds. Neurological: General: No focal deficit present. Mental Status: She is alert and oriented to person, place, and time. Mental status is at baseline. Psychiatric: Mood and Affect: Mood normal. Behavior: Behavior normal. Review of Systems Constitutional: Positive for diaphoresis and fatigue. Negative for activity change, appetite change, chills and fever. HENT: Negative. Eyes: Negative. Respiratory: Positive for shortness of breath. Negative for apnea, cough, choking, chest tightness, wheezing and stridor. Cardiovascular: Positive for chest pain. Negative for palpitations and leg swelling. Gastrointestinal: Negative. Endocrine: Negative. Genitourinary: Negative. Musculoskeletal: Negative. Skin: Negative. Allergic/Immunologic: Negative. Neurological: Negative. Hematological: Negative. Psychiatric/Behavioral: Negative. All other systems reviewed and are negative. Problem List Principal Problem: Unstable angina (CMS/HCC) Active Problems: Hyperlipemia Hypertension COPD without exacerbation (CMS/HCC) Atrial fibrillation (CMS/HCC) NSVT (nonsustained ventricular tachycardia) (CMS/HCC) Assessment and Plan 1. Unstable angina 2. Acute respiratory failure with hypoxia, resolved 3. Rate controlled atrial fibrillation on anticoagulation 4. Episodes of Nonsustained V. Tach 5. COPD without exacerbation 6. Essential hypertension 7. hyperlipidemia 8. Rij-gpbhcdq-ettzjglcj type 2 diabetes mellitus [facility], [facility]p initiated Cardiology consult, keep n.p.o. for (more content not included)... [facility] 12-02-2023 Note [facility] 12-02-2023 Note [place] Elect[place] Consult Note [place] Cardiology - [facility] Reason for visit: Afib HPI: Zachary Maynard is a 78 y.o. year old with past medical history of Past medical history of COPD, uterine cancer, diabetes, hypertension was recently admitted to [facility] and noted to be in A-fib with [...] on file Intimate Partner Violence: Unknown (04/17/2023) [place] Safety & Environment Fear of Current or [...] -Hypertension - Dm2 Pt will benefit from long term acute care registered nurse monitoring of AF. Will recc LHC/RHC for NSVT and dyspnea Adv RF modification. Will start Amio for maintaining SR. Dusty Young MD Cardiac Electrophysiology [facility] 06-15-2020 Note [id number]:127 [facility] 06-15-2020 Note Cystoscopy with Uret hral Dilation [...] you have a fever over 100 degrees [facility] 05-18-2020 Note [id number]:127 [facility] 05-18-2020 Note Cystoscopy with Uret hral Dilation [...] you have a fever over 100 degrees [facility] Evaluation note Diagnosis Onset Date Trigger finger, right middle finger acute Trigger finger, right ring finger acute [facility] Work Phone: Summary Purpose Family History No Family History Records Found Relationship Condition Age at Onset Recorded Date/T janki father Malignant neoplasm of lung Unknown Not Specified Myocardial infarction Unknown Advance Directives No Advanced Directives Records FoundDocuments on File Type Date Recorded 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 ACP-Advance Directive ACP-Power of Solderer Electronic Latest Code Status on File Code Status [...] Contact Information Primary Emergency Contact: Deep Mayn[facility] Relation: Spouse Past Surgical History: Past Surgical [...] Assisted Dressing Assisted Toileting Assisted Feeding Assisted Brown Sourer Independent Med Delivery whole Wound Care Documentation [...] NOT a DME order): n/a Other Treatments: senior care, home health aide services Patient's personal belongings (please select all that are sent with patient): patient has all belongings RN SIGNATURE: CASE MANAGEMENT/SOCIAL WORK SECTION Inpatient Status Date: 10-09-2019 Readmission Risk Assessment Score: Readmission Risk Risk of Unplanned Readmission: 12 Discharging to Facility/ Agency Name: [facility] Address: Phone: Fax: Dialysis Facility (if applicable) Name: Address: Dialysis Schedule: Phone: Fax: Tobacco Stemmer/Pharmacist Helper signature: EDT ICIAN SECTION Prognosis: Fair Condition [...] size monitoring with PCP F/u urologist at [place] in 1 week for lowe and void trial Take docusate 100 mg daily and miralax 17 g daily. documented in this encounter History of Present Illness * Tami Ni RN - 10/16/2019 5:51 PM EDT Tare Worker discharged patient @ 1745 by wheelchair off unit with . Tare Worker went over all discharge paperwork and patient [...] who was admitted as a transfer from [facility] 10/09/2019 where she presented with gradually [...] to ensure the accuracy of this automated preforming machine operator, some errors in preforming machine operator may have occurred. * Michelle Pelletier MD - 10/16/2019 11:07 AM EDT [facility] Internal Medicine Teaching Residency Program Inpatient Daily Progress Note Patient: Zachary Maynard Date of : 1945 Acct: [id number] Room: Admit date: 10/09/2019 Today's date: 10/16/19 [...] of COPD, primary hypertension was transferred from [facility] for management of infrarenal abdominal aortic aneurysm and for vascular consultation. States she started having lower back pain since . Describes the pain as constant, sharp, 10out of 10 in intensity associated with nausea. Patient went to the emergency department at [facility] to have hypertensive emergency with systolics above 200 and d-dimer was elevated. CT abdomen was done which showed 3.5 infrarenal aortic aneurysm, started on Cardene drip and pain medications we re given. Patient was transferred to [facility] found to be hypoxic in upper [...] Q4H PRN hydrALAZINE, 10 mg, Q6H PRN hfnbqcuqmb-vssnsxaknqvfq-qdrmopen, 1 tablet, Q4H PRN sodium chloride flush, [...] Dwayne Hanson MD Internal Medicine Resident, PGY-1 [facility]; [place], [place] 10/16/2019, 11:07 AM I have discussed [...] 9:31 AM EDT [facility] - Progress Note Today's Date and [...] culture. Medical Decision Making/Summary/Discussion:10/16/2019 Infection Control Recommendations [place] Precautions Antimicrobial Stewardship Recommendations Discontinuation of therapy [...] of . INITIAL HISTORY: Patient transferred from [facility] on 10-09-19 because of low back pain and findings of an infrarenal abdominal aortic aneurysm. Developed onset of back pain on 10-07-19, associated with nausea. She was evaluated at [facility] and found to have a hypertensive emergency with systolic pressures over [address] showed a 3.5 cm infrarenal aortic aneurysm. Her BP was controlled with Cardene drip and the patient was transferred to [facility]. At [facility] patient had signs of hypoxia, [...] file Gets together: Not on file Attends tenriism service: Not on file Active member of [...] Initial FINDINGS: CTA NECK: AORTIC ARCH/ARCH VESSELS: Dqpw-qq-tqyrwtzk atherosclerotic plaque at the arch arch and [...] No acute pulmonary process. Emphysema. Medical Decision Arbykc-Mbsndqjw-Cwzpk: 10/15/2019 12:10 AM - Prieto, Mhpn Incoming Lab Results From [facility] Specimen Information: Blood Component Collected Lab Specimen Description 10/12/2019 2:17 PM [facility] .BLOOD Special Requests 10/12/2019 2:17 PM [facility] back lt arm 3ml Culture 10/12/2019 2:17 PM [facility] NO GROWTH 3 DAYS Medical Decision Making-Other: Note: Labs, medications, radiologic studies were reviewed with personal review of films Large amounts of data were reviewed Discussed with nursing Staff, party planner Infection Control and Prevention measures reviewed [...] Patel RN - 10/16/2019 6:15 AM EDT Tare Worker bladder scanned patient and bladder scan shows 554 mL, keno writer / runner straight cath patient and was only able [...] loss Fluid Accumulation: 1 - Mild Extremities Pals Nurse Strength: Not Performed Estimated Daily Nutrient Needs: Energy (kcal): 1.3-1.4 ~> 0581-5089 kcals/d; Weight Used for Energy Requirements: Admission Protein (g): 1.2-1.4 ~> 65-76 gms/d; Weight Used for Protein Requirements: [place] Nutrition Related Findings: Na 131 Wounds: None Current Nutrition Therapies: DIET GENERAL; Anthropometric Measures: Height: 5' 4 (162.6 cm) Current Body Weight: 154 lb (69.9 kg) Admission Body Weight: 154 lb (69.9 kg) Usual Body Weight: 160 lb (72.6 kg)(per pt's ) [place] Body Weight: 120 lbs; % [place] Body Weight 128.3 % BMI: 26.4 BMI [...] Discharge Planning: Too soon to determine Contact: [phone] * Dawyne Hanson MD - 10/15/2019 3:09 PM EDT [facility] Internal Medicine Teaching Residency Program Inpatient Daily Progress Note Patient: Zachary Maynard Date of : 1945 Acct: [id number] Room: Admit date: 10/09/2019 Today's date: 10/15/19 [...] of COPD, primary hypertension was transferred from [facility] for management of infrarenal abdominal aortic aneurysm and for vascular consultation. States she started having lower back pain since . Describes the pain as constant, sharp, 10out of 10 in intensity associated with nausea. Patient went to the emergency department at [facility] to have hypertensive emergency with systolics above 200 and d-dimer was elevated. CT abdomen was done which showed 3.5 infrarenal aortic aneurysm, started on Cardene drip and pain medications we re given. Patient was transferred to [facility] found to be hypoxic in upper [...] Q4H PRN hydrALAZINE, 10 mg, Q6H PRN qhjyajetnz-pcugxteztyhwq-nljlbndu, 1 tablet, Q4H PRN sodium chloride flush, [...] Dwayne Hanson MD Internal Medicine Resident, PGY-1 [facility]; [place], [place] 10/15/2019, 3:09 PM Associated attestation - [...] - 10/15/2019 3:09 PM EDT Occupational Therapy [facility] Occupational Therapy Not Seen Note DATE: [...] 10/15/2019 1:55 PM EDT Physical Therapy Facility/Department: [facility] 2 Daily Treatment Note NAME: Zachary [...] place: No Restraints: all rail up when PRODUCTION HARDENER left, okay with pt Therapy Time Individual Concurrent Group Co-treatment Time In 1326 Time Out 1342 Minutes 16 Timed Code Treatment Minutes: 16 Minutes Sho Tierney PTA * Willie Garcia, RODDING MACHINE TENDER - NELSON - 10/15/2019 10:38 AM EDT Neurology Nurse [...] who was admitted as a transfer from [facility] 10/09/2019 where she presented with gradually [...] to ensure the accuracy of this automated preforming machine operator, some errors in preforming machine operator may have occurred. * Sailaja Durán RN - 10/15/2019 9:00 AM EDT Pt straight cathed for 850 cc clear yellow urine. Tolerated well. Will continue to monitor. * Alfonso Kendrick MD - 10/15/2019 8:38 AM EDT [facility] - Progress Note Today's Date and [...] antibiotics Medical Decision Making/Summary/Discussion:10/15/2019 Infection Control Recommendations [place] Precautions Antimicrobial Stewardship Recommendations Discontinuation of therapy [...] of . INITIAL HISTORY: Patient transferred from [facility] on 10-09-19 because of low back pain and findings of an infrarenal abdominal aortic aneurysm. Developed onset of back pain on 10-07-19, associated with nausea. She was evaluated at [facility] and found to have a hypertensive emergency with systolic pressures over [address] showed a 3.5 cm infrarenal aortic aneurysm. Her BP was controlled with Cardene drip and the patient was transferred to [facility]. At [facility] patient had signs of hypoxia, and an [...] file Gets together: Not on file Attends tenriism service: Not on file Active member of [...] MONOPCT 10 5 BMP: Recent Labs 10/13/19 0602 10/14/19 0535 NA 131* 130* K 3.4* 3.7 [...] Initial FINDINGS: CTA NECK: AORTIC ARCH/ARCH VESSELS: Ngji-su-sjwawgfn atherosclerotic plaque at the arch arch and [...] No acute pulmonary process. Emphysema. Medical Decision Tkhmwk-Vnptyhvq-Dgowi: 10/15/2019 12:10 AM - PrietoBlanco Incoming Lab Results From [facility] Specimen Information: Blood Component Collected Lab Specimen Description 10/12/2019 2:17 PM [facility] .BLOOD Special Requests 10/12/2019 2:17 PM [facility] back lt arm 3ml Culture 10/12/2019 2:17 PM [facility] NO GROWTH 3 DAYS Medical Decision Making-Other: Note: Labs, medications, radiologic studies were reviewed with personal review of films Large amounts of data were reviewed Discussed with nursing Staff, party planner Infection Control and Prevention measures reviewed [...] Hanson MD - 10/14/2019 1:29 PM EDT [facility] Internal Medicine Teaching Residency Program Inpatient Daily Progress Note Patient: Zachary Maynard Date of : 1945 Acct: [id number] Room: Admit date: 10/09/2019 Today's date: 10/14/19 [...] of COPD, primary hypertension was transferred from [facility] for management of infrarenal abdominal aortic aneurysm and for vascular consultation. States she started having lower back pain since . Describes the pain as constant, sharp, 10out of 10 in intensity associated with nausea. Patient went to the emergency department at [facility] to have hypertensive emergency with systolics above 200 and d-dimer was elevated. CT abdomen was done which showed 3.5 infrarenal aortic aneurysm, started on Cardene drip and pain medications we re given. Patient was transferred to [facility] found to be hypoxic in upper [...] Q4H PRN hydrALAZINE, 10 mg, Q6H PRN vddshaxgrs-pzakxepveyqji-vssvrahd, 1 tablet, Q4H PRN sodium chloride flush, [...] Dwayne Hanson MD Internal Medicine Resident, PGY-1 [facility]; [place], [place] 10/14/2019, 1:29 PM Associated attestation - [...] Pelletier MD * Willie Garcia APRN - [place] OR LUNCHROOM CHECKER - 10/14/2019 11:22 AM EDT Neurology Nurse [...] who was admitted as a transfer from [facility] 10/09/2019 where she presented with gradually [...] to ensure the accuracy of this automated preforming machine operator, some errors in preforming machine operator may have occurred. * Alfonso Kendrick MD - 10/14/2019 10:10 AM EDT [facility] - Progress Note Today's Date and [...] antibiotics Medical Decision Making/Summary/Discussion:10/14/2019 Infection Control Recommendations [place] Precautions Antimicrobial Stewardship Recommendations Discontinuation of therapy [...] of . INITIAL HISTORY: Patient transferred from [facility] on 10-09-19 because of low back pain and findings of an infrarenal abdominal aortic aneurysm. Developed onset of back pain on 10-07-19, associated with nausea. She was evaluated at [facility] and found to have a hypertensive emergency with systolic pressures over [address] showed a 3.5 cm infrarenal aortic aneurysm. Her BP was controlled with Cardene drip and the patient was transferred to [facility]. At [facility] patient had signs of hypoxia, and an [...] file Gets together: Not on file Attends tenriism service: Not on file Active member of [...] Initial FINDINGS: CTA NECK: AORTIC ARCH/ARCH VESSELS: Ovgf-hd-cgldzgpk atherosclerotic plaque at the arch arch and [...] No acute pulmonary process. Emphysema. Medical Decision Ggbwwq-Yftabqjx-Twsly: Medical Decision Making-Other: Note: Labs, medications, radiologic studies were reviewed with personal review of films Large amounts of data were reviewed Discussed with nursing Staff, party planner Infection Control and Prevention measures reviewed [...] Ferris RN - 10/13/2019 10:40 PM EDT Tare Worker contacted internal med regarding pt complaining of lower abdominal pain. States she has to void but is unable to. Bladder scanned her just now and >999. New order for one time straight cath. Straight cath completed at 2315. 900ml clear, yellow urine out with 63ml residual. Will continue to monitor. 0430- Tare Worker contacted internal med regarding pt unable to [...] 10/13/2019 4:16 PM EDT Physical Therapy Facility/Department: [facility] 2 Daily Treatment Note NAME: Zachary [...] Hanson MD - 10/13/2019 9:30 AM EDT [facility] Internal Medicine Teaching Residency Program Inpatient Daily Progress Note Patient: Zachary Maynard Date of : 1945 Acct: [id number] Room: Admit date: 10/09/2019 Today's date: 10/13/19 Number of days in the hospital: 4 SUBJECTIVE Admitting Diagnosis: Aneurysm of infrarenal abdominal aorta (HCC) CC: Midline Lower Back Pain Pt examined at bedside. Chart & results reviewed. BP increased overnight - Small Equipment Operator Gate Guard gave Norvasc and started IV Hydralazine early [...] of COPD, primary hypertension was transferred from [facility] for management of infrarenal abdominal aortic aneurysm and for vascular consultation. States she started having lower back pain since . Describes the pain as constant, sharp, 10out of 10 in intensity associated with nausea. Patient went to the emergency department at [facility] to have hypertensive emergency with systolics above 200 and d-dimer was elevated. CT abdomen was done which showed 3.5 infrarenal aortic aneurysm, started on Cardene drip and pain medications we re given. Patient was transferred to [facility] found to be hypoxic in upper [...] Q4H PRN hydrALAZINE, 10 mg, Q6H PRN yvvahjyztp-csmzruuutqctx-qfsnpmxc, 1 tablet, Q4H PRN sodium chloride flush, [...] Dwayne Hanson MD Internal Medicine Resident, PGY-1 [facility]; [place], [place] 10/13/2019, 9:31 AM Associated attestation - [...] problems. * Overall course ; show no change coordinator time. Headache is improved Blood pressure improved Ultrasound renal duplex, concerning for unilateral renal artery stenosis Patient very sleepy Has tenderness in lower back X-ray lumbar spine done at the time of admission, concerning for possible fracture Ordering MRI lumbar spine Electronically signed by Michelle Pelletier MD * Viry Morelos, RODDING MACHINE TENDER - [place] OR LUNCHROOM CHECKER - 10/13/2019 8:44 AM EDT NEUROLOGY INPATIENT [...] negative for acute changes -IV Depacon 500mg I0qalzb x3 doses -Continued blood pressure management as [...] to ensure the accuracy of this automated preforming machine operator, some errors in preforming machine operator may have occurred. * Alfonso Kendrick MD - 10/13/2019 7:57 AM EDT [facility] - Progress Note Today's Date and Time: 10/13/2019, 7:57 AM Impression : Fever, etiology to be determined Intermittent Headaches, most likely side effect of the various medications being given for control of HTN. No apparent meningitis Low back pain Aneurysm infrarenal abdominal aorta Centrilobular emphysema Allergy to quinolones, sulfa Recommendations: Monitor off antibiotics Medical Decision Making/Summary/Discussion:10/13/2019 Infection Control Recommendations [place] Precautions Antimicrobial Stewardship Recommendations Discontinuation of therapy [...] of . INITIAL HISTORY: Patient transferred from [facility] on 10-09-19 because of low back pain and findings of an infrarenal abdominal aortic aneurysm. Developed onset of back pain on 10-07-19, associated with nausea. She was evaluated at [facility] and found to have a hypertensive emergency with systolic pressures over [address] showed a 3.5 cm infrarenal aortic aneurysm. Her BP was controlled with Cardene drip and the patient was transferred to [facility]. At [facility] patient had signs of hypoxia, and an [...] file Gets together: Not on file Attends tenriism service: Not on file Active member of [...] following labs: CBC with Differential: Recent Labs 10/12/1963510/13/19 06 WBC 12.2* 12.3* HGB 12.7 14.5 HCT [...] Initial FINDINGS: CTA NECK: AORTIC ARCH/ARCH VESSELS: Akhr-rk-tlgjjeop atherosclerotic plaque at the arch arch and [...] No acute pulmonary process. Emphysema. Medical Decision Gxtlqj-Zmgprmbg-Qietr: Medical Decision Making-Other: Note: Labs, medications, radiologic studies were reviewed with personal review of films Large amounts of data were reviewed Discussed with nursing Staff, party planner Infection Control and Prevention measures reviewed All prior entries were reviewed Administer medications as ordered Prognosis: Guarded Discharge planning reviewed Follow up as outpatient. Thank you for allowing us to participate in the care of this patient. Please call with questions. Dickson Hutchinson DPM Pager: - Office: * Divina Ferris RN - 10/13/2019 3:00 AM EDT Tare Worker contacted internal med regarding pt blood pressure. [...] administer. New order for PO 10mg norvasc. Tare Worker will continue to monitor BP and pain. * Alfonso Kendrick MD - 10/12/2019 4:32 PM EDT [facility] - Progress Note Today's Date and Time: 10/12/2019, 4:32 PM Impression : Fever, etiology to be determined Intermittent Headaches, most likely side effect of the various medications being given for control of HTN. No apparent meningitis Low back pain Aneurysm infrarenal abdominal aorta Centrilobular emphysema Allergy to quinolones, sulfa Recommendations: Monitor off antibiotics Blood, urine cultures Medical Decision Making/Summary/Discussion:10/12/2019 Infection Control Recommendations [place] Precautions Antimicrobial Stewardship Recommendations Discontinuation of therapy [...] of . INITIAL HISTORY: Patient transferred from [facility] on 10-09-19 because of low back pain and findings of an infrarenal abdominal aortic aneurysm. Developed onset of back pain on 10-07-19, associated with nausea. She was evaluated at [facility] and found to have a hypertensive emergency with systolic pressures over [address] showed a 3.5 cm infrarenal aortic aneurysm. Her BP was controlled with Cardene drip and the patient was transferred to [facility]. At [facility] patient had signs of hypoxia, and an [...] file Gets together: Not on file Attends tenriism service: Not on file Active member of [...] Initial FINDINGS: CTA NECK: AORTIC ARCH/ARCH VESSELS: Prah-ma-hunupksm atherosclerotic plaque at the arch arch and [...] No acute pulmonary process. Emphysema. Medical Decision Gzooiw-Wyvxjpcv-Mrhmr: Medical Decision Making-Other: Note: Labs, medications, radiologic studies were reviewed with personal review of films Large amounts of data were reviewed Discussed with nursing Staff, party planner Infection Control and Prevention measures reviewed [...] Morris MD - 10/12/2019 1:53 PM EDT [facility] Internal Medicine Teaching Residency Program Inpatient Daily Progress Note Patient: Zachary Maynard Date of : 1945 Acct: [id number] Room: Admit date: 10/09/2019 Today's date: 10/12/19 [...] Q4H PRN hydrALAZINE, 10 mg, Q6H PRN vvjnnehrbl-jweyopkzqgxbj-njursaqh, 1 tablet, Q4H PRN sodium chloride flush, [...] PRN Diagnostic Labs: CBC: Recent Labs 10/10/1962610/11/19 0529 10/12/19 0636 WBC 7.4 6.8 12.2* RBC 4.53 4.71 4.32 HGB 13.5 13.7 12.7 HCT 42.7 43.6 40.5 MCV 94.3 92.6 93.8 RDW 14.5* 14.3 14.7* PLT 170 196 196 BMP: Recent Labs 10/10/1962610/11/19 0529 10/12/19 0636 NA 132* 135 132* [...] Denys Morris MD Internal Medicine Resident, PGY-3 [facility]; [place], [place] 10/12/2019, 1:53 PM * Michelle Pelletier MD - 10/12/2019 1:07 PM EDT Patient seen and examined Little sleepy, clonidine discontinued Hypertension controlled Headache improved MRI brain reviewed concerning for meningioma Work-up for secondary hypertension progress * Viry Morelos APRN - [place] OR LUNCHROOM CHECKER - 10/12/2019 6:51 AM EDT NEUROLOGY INPATIENT [...] to ensure the accuracy of this automated preforming machine operator, some errors in preforming machine operator may have occurred. * Divina Ferris RN - 10/11/2019 10:20 PM EDT Tare Worker contacted internal med regarding pt headache of 05/03. Pt has IV toradol and reglan ordered. Pt is alert and oriented x2. Tare Worker instructed to hold IV toradol and reglan and to administer PRN tylenol for the headache. Will continue to monitor. * Divina Ferris RN - 10/11/2019 10:20 PM EDT Tare Worker contacted internal med regarding blood pressure 161/62 and temp of 99.9 after administering scheduled clonidine and lopressor. Pt rating headache 05/03. Tare Worker instructed to hold scheduled IV toradol and reglan. 0435- Tare Worker contacted internal med regarding BP. Tare Worker unable to keep SBP <160. Tare Worker administered PRN IV hydralazine at 2315 for a pressure in the 170s, pressure went to the 160s then back up.IV labetalol administered at 0315 for SBP in the low 180s. Pressure still in the 170s. No new orders at this time. Tare Worker instructed to continue to monitor. 0530- IV hydralazine and PO fioricet administered. No new orders at this time. Will continue to monitor BP. * Divina Ferris RN - 10/11/2019 10:15 PM EDT Tare Worker received call from Dr. Kendrick regarding pt [...] Hanson MD - 10/11/2019 2:46 PM EDT [facility] Internal Medicine Teaching Residency Program Inpatient Daily Progress Note Patient: Zachary Maynard Date of : 1945 Acct: [id number] Room: Admit date: 10/09/2019 Today's date: 10/11/19 [...] of COPD, primary hypertension was transferred from [facility] for management of infrarenal abdominal aortic aneurysm and for vascular consultation. States she started having lower back pain since . Describes the pain as constant, sharp, 10out of 10 in intensity associated with nausea. Patient went to the emergency department at [facility] to have hypertensive emergency with systolics above 200 and d-dimer was elevated. CT abdomen was done which showed 3.5 infrarenal aortic aneurysm, started on Cardene drip and pain medications we re given. Patient was transferred to [facility] found to be hypoxic in upper [...] Q4H PRN hydrALAZINE, 10 mg, Q6H PRN ckzzdpivzq-ctheshuyjczop-jdfzdzxo, 1 tablet, Q4H PRN sodium chloride flush, [...] Dwayne Hanson MD Internal Medicine Resident, PGY-1 [facility]; [place], [place] 10/11/2019, 2:46 PM * Michelle Pelletier [...] Ambulation Assistance: Independent Transfer Assistance: Independent Active Media Production Manager: Yes Occupation: Retired Additional Comments: pt reported [...] SBA for transfer and while completing jinny-care) Trenton Chowdhury: Normotonic Tone LUE LUE Tone: Normotonic Coordination [...] Daily Activity Raw Score: 20 (10/11/19 132) AM-PAC Inpatient ADL T-Scale Score : 42.03 (10/11/19 132) ADL Inpatient CMS 0-100% Score: 38.32 (10/11/19 132) ADL Inpatient CMS G-Code Modifier : CJ [...] 10/11/2019 12:17 PM EDT Physical Therapy Facility/Department: [place] [address] Initial Assessment NAME: Zachary Maynard : 1945 [...] Ambulation Assistance: Independent Transfer Assistance: Independent Active Media Production Manager: Yes Occupation: Retired Additional Comments: pt reported [...] Inpatient Mobility Raw Score : 20 (10/11/19 121) AM-PAC Inpatient T-Scale Score : 47.67 (10/11/191215) Mobility Inpatient CMS 0-100% Score: 35.83 (08/17/20 1216) Mobility Inpatient [facility] G-Code Modifier : CJ (10/11/19 1216) Goals Short term goals Time Frame for [...] tested Data: Lab Results: CBC: Recent Labs 10/09/1944710/10/19 0627 10/11/19 0529 WBC 7.7 7.4 6.8 HGB [...] of Toradol 15mg, Reglan 5mg, Benadryl 12.5mg [id number] x3 -Continued blood pressure management as you are doing -May consider LP through IR for persistent headache -We will follow Please note that this note was generated using a voice recognition dictation software. Although every effort was made to ensure the accuracy of this automated preforming machine operator, some errors in preforming machine operator may have occurred. * Marely Guardado RN - 10/10/2019 9:18 PM EDT Perfect served technician telecommunication systems intermed: Patient is due to get 100mg [...] Hanson MD - 10/10/2019 11:58 AM EDT [facility] Internal Medicine Teaching Residency Program Inpatient Daily Progress Note Patient: Zachary Maynard Date of : 1945 Acct: [id number] Room: Admit date: 10/09/2019 Today's date: 10/10/19 Number of days in the hospital: 1 SUBJECTIVE Admitting Diagnosis: Aneurysm of infrarenal abdominal aorta (HCC) CC: Lower Back Pain Pt examined at bedside. Chart & results reviewed. No acute episodes overnight Pt is heme stable and afebrile BP under control Headache 10/10 since morning Back pain has not improved [...] of COPD, primary hypertension was transferred from [facility] for management of infrarenal abdominal aortic aneurysm and for vascular consultation. States she started having lower back pain since . Describes the pain as constant, sharp, 10out of 10 in intensity associated with nausea. Patient went to the emergency department at [facility] to have hypertensive emergency with systolics above 200 and d-dimer was elevated. CT abdomen was done which showed 3.5 infrarenal aortic aneurysm, started on Cardene drip and pain medications we re given. Patient was transferred to [facility] found to be hypoxic in upper [...] 14.5* PLT 202 170 BMP: Recent Labs 10/09/198 10/10/19 0627 NA 141 132* K 3.9 [...] Dwayne Hanson MD Internal Medicine Resident, PGY-1 [facility]; [place], [place] 10/10/2019, 12:00 PM * Duglas Rodrigues [...] a 74 y.o. Female with transfer from [facility]. Low back pain since . 3.4 infrarenal AAA with no active dissection. Vascular surgery consulted, non emergent problem. RecommendedSBP <140. Admit to medicine. Persistent dizziness, no red flags on exam. Hypoxia, hx COPD but doesn't wear O2 at home ED Course as of Oct 08 112 Sat Oct 09, 2019 0727 Troponin: Troponin, [...] Eloped FOLLOW-UP: Adina Bunch MD [address] [id number] DISCHARGE MEDICATIONS: New Prescriptions No medications on [...] section and content) DATE CREATED AUTHOR 08/13/2017 [facility] DATE CREATED AUTHOR AUTHOR'S ORGANIZ ATION 11/03/2019 [facility] DATE CREATED AUTHOR AUTHOR'S ORGANIZ ATION 11/29/2020 [facility] DATE CREATED AUTHOR AUTHOR'S ORGANIZ ATION 06/18/2022 [facility] DATE CREATED AUTHOR AUTHOR'S ORGANIZ ATION 04/25/2023 [facility] EP[facility] DATE CREATED AUTHOR AUTHOR'S ORGANIZ ATION 05/09/2023 [facility] DATE CREATED AUTHOR AUTHOR'S ORGANIZ ATION 12/09/2023 [facility] Reason for Visit (unrecogniz ed section and content) Reason Comments Abdominal Pain Back Pain Status Reason Specialty Diagnoses / Procedures Referre d By Contact Referred To Contact Diagnoses AAA (abdominal aortic aneurysm) (HCC) Duglas Rodrigues MD [address] [place] [address] [facility] Care Teams (unrecognized sec tion and content) [...] BE BASED ON THE PRIMARY CLINICAL RECORDS. [employer] provides no warranty or guarantee of the accuracy or completeness of information in this document.
== END 2023-12-03 16:30 | disposition home or self-care (01) | DRG 311 ==
LOC: ER 20:46 → MS 12-03 13:04
PROVIDERS: Registered Nurse; Student in an Organized Health Care Education/Training Program; Admitting Provider Family Medicine; Emergency Provider Emergency Medicine; PCP Family Medicine; Visit Provider Family Medicine
DX: I20.0 Unstable angina (principal); E43 Unspecified severe protein-calorie malnutrition; I50.21 Acute systolic (congestive) heart failure; I13.0 Hypertensive heart and chronic kidney disease with heart failure and stage 1 through stage 4 chronic kidney disease, or unspecified chronic kidney disease; I47.29 Other ventricular tachycardia; N18.2 Chronic kidney disease, stage 2 (mild); F03.90 Unspecified dementia, unspecified severity, without behavioral disturbance, psychotic disturbance, mood disturbance, and anxiety; J44.9 Chronic obstructive pulmonary disease, unspecified; I48.0 Paroxysmal atrial fibrillation; E11.9 Type 2 diabetes mellitus without complications; R79.89 Other specified abnormal findings of blood chemistry; Z68.28 Body mass index [BMI] 28.0-28.9, adult; Z87.891 Personal history of nicotine dependence; Z79.01 Long term (current) use of anticoagulants; Z79.84 Long term (current) use of oral hypoglycemic drugs; Z79.899 Other long term (current) drug therapy; Z88.8 Allergy status to other drugs, medicaments and biological substances
CPT/HCPCS: 36415; 71045; 71275; 80048; 80053; 82948; 83735; 83880; 84484; 85025; 93005; 94761; 96365; 99285; G0378; J2405; J3475; Q9967

== ENCOUNTER 2023-12-04 12:17 | Emergency (ER) | payer MEDICARE, SELFPAY ==
[2023-12-04] VITALS (31 sets, daily range): BP systolic 141–182; BP diastolic 57–101; PULSE 55–82; TEMP 37.3; O2SAT 95–100; BMI 26.7
--- NOTE | 2023-12-04 12:20 | ECG_ITS ---
The [facility] Test Date: 2023-12-04 Pat Name: ZACHARY MAYNARD Department: Room: - Gender: Female [employer] Developer: : 1945 Requested By: ADINA BUNCH Order Number: [id number] Reading MD: ADINA BUNCH Measurements Intervals [place] Rate: 64 P: -[id number] ID: [id number] QRS: 5 QRSD: 78 T: 55 QT: 428 QTc: 437 Interpretive Statements 1210 Atrial fibrillation 9140 abnormal rhythm ECG Compared to ECG 12/02/2023 19:34:13 Sinus rhythm no longer present Sinus arrhythmia no longer present Electronically Signed On 12-05-2023 6:46:28 EDT by ADINA BUNCH
--- NOTE | 2023-12-04 12:20 | XR_ITS ---
The [address] [address] Patient Name: ZACHARY MAYNARD MRN: [id number] date: 1945 Sex: F Assigned Patient Location: ER Current Patient Location: ER Accession/Order Number: [id number] Exam Date: 12/04/2023 13:00 Report Date: 12/04/2023 14:03 At the request of: CELIA ESTRADA Procedure: XR chest 1V EXAMINATION: XR chest 1V HISTORY: sob COMPARISON: XR chest 12/02/2023 FINDINGS: LUNGS: Expanded lungs with mild opacity and stranding within lung bases. VASCULATURE: No increased pulmonary vasculature. PLEURA: No pneumothorax, effusion, or pleural thickening. CARDIAC: Stable mild cardiomegaly. MEDIASTINUM: No visible mass or adenopathy. BONES: No fracture or visible bone lesion. OTHER: Electronic device projecting over midline chest. XR/XR chest 1V IMPRESSION: 1. Hyperexpanded lungs with mild bibasilar infiltrates versus atelectasis; new since prior study. 2. Stable mild cardiomegaly. Electronically authenticated by: RNEATA GAYTAN Date: 12/04/2023 14:03
--- NOTE | 2023-12-04 12:28 | ECG_ITS ---
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
--- NOTE | 2023-12-04 12:35 | PC.NURSE ---
pt c/o chest pain that has now resolved. chest pain was substernal radiating to left side. pt states a little SOB.
--- OUTSIDE RECORDS SUMMARY | 2023-12-04 12:36 | XMS_ITS | CCD ---
Author Organization [facility] Care Team Providers Care Abnormal Psychology Teacher Name Role Phone ADINA BUNCH Unavailable Unavailable DALTON, RACHAEL K Unavailable Unavailable ALTON, MICHELLE Unavailable Unavailable ALTON, MICHELLE Unavailable Unavailable Adina Bunch Primary Care Provider [phone] JUDIE, DUGLAS S Admitting Unavailable JUDIE, DUGLAS [...] Care Unavailable Adina Bunch Primary Care Unavailable Calvey, Anju R Admitting Unavailable Calvshahram, Anju R Attending Unavailable Adina Bunch Primary Care Unavailable Calvshahram, Anju R Admitting Unavailable Freddy Anju R Attending Unavailable DUSTY YOUNG Attending Unavailable Allergies Allergy Classification Reported Allergen(s) Allergy Type Date of Onset Reaction(s) Facility (7 sources) Adhesive Tape; 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: [Adhesive tape] Propensity to adverse reactions to drug 4 Unknown Reaction, Rash [place], [place] (4 sources) Ciprofloxacin Drug Allergy 8 Vomiting [place], [place] (1 source) Hmg-Coa Reductase Inhibitors (Statins) Propensity to adverse reactions to drug 8 [place], [place] (5 sources) Meperidine; 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: [MEPERIDINE] Drug Allergy 8 Anaphylaxis [place] (4 sources) moxifloxacin Drug Allergy 8 Anaphylaxis [place] (4 sources) Nalbuphine Drug Allergy 8 Unknown Reaction, Itching [place] (4 sources) Promethazine Drug Allergy 8 Unknown Reaction [place] (1 source) Sulfonamides (Antibiotic) Propensity to adverse reactions to drug 8 [place] (2 sources) black walnut pollen extract Drug Allergy 4 [facility] Repository (2 sources) Ciprofloxacin Drug Allergy 4 [facility] (2 sources) Levamisole Drug Allergy 4 [facility] (2 sources) Meperidine Drug Allergy 4 [facility] (2 sources) moxifloxacin Drug Allergy 4 [facility] (2 sources) Nalbuphine Drug Allergy 4 [facility] Rep[facility] (1 source) Sulfonamides (Antibiotic) Drug allergy (disorder) 7 [facility] Rep[facility] (4 sources) Sulfacetamide; 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: [sulfacetamide] Drug Allergy 4 Unknown Reaction, Itching [facility] (4 sources) Sulfur; 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: [sulfur] Drug Allergy 4 Unknown Reaction [facility] (4 sources) Wokgmti-JTH-AqD Reductase Inhibitor; 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: [Uvthagc-GKR-IqB Reductase Inhibitor] Allergy to substance 4 Unknown Reaction [facility] (1 source) Ciprofloxacin Drug Allergy 4 [facility] Repository (1 source) Meperidine Drug Allergy 4 [facility] Rep[facility] (1 source) moxifloxacin Drug Allergy 4 [facility] (1 source) Nalbuphine Drug Allergy 4 [facility] Repository (1 source) Promethazine Drug Allergy 4 [facility] Rep[facility] Medications Current Medications Medication Drug [...] Central Nervous System Stimulant, Methylxanthine Start: 10-10-2019 lmkikalmyj-cuombpvahtifg-srj feine (FIORICET, ESGIC) per tablet 1 tablet [id number] 200 actuat albuterol 0.09 mg/actuat metered dose [...] mg extended release oral capsule (3 sources) I-uoebbz-O-aspartate Receptor Antagonist Start: 04-08-2023 take 28 mg [...] disintegrating tablet 4 mg polyethylene glycol 3350 68930 mg powder for oral solution (3 sources) [...] spironolactone (ALDACTONE) t ablet 50 mg Vit C,N-Js-Ujysd-Lutein-Zeax an (Preservision Areds-2) 250-90-40-1 mg capsule (1 source) Start: 04-17-2023 Vit C,N-Nw-Iqqqt-Lutein-Zeax an (Preservision Areds-2) 250-90-40-1 mg capsule Active [...] abdominal aorta ] Onset: 10-09-2019 10-09-2019 Chronic Cardiac dysrhythmias (2 sources) Paroxysmal atrial fibrillation; 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: [Paroxysmal atrial fibrillation] Onset: 12-02-2023 Chronic Conditions associated with dizziness or vertigo [...] Test Name Value Interpretation Reference Range Facility Office Visiton 12-02-2023 Follow-up visit [id number] Sunday Maynard kit A 1945 F Date Provider Department Center 12/02/2023 DUSTY BONE CARD [facility] No family history on file Level of Service:28811 [place] OFFICE/OUTPATIENT NEW MODERATE MDM 45 MINUTES Normal [facility] Orders Onlyon 12-02-2023 Orders Only [id number] Sunday Maynard kit A 1945 F Date Provider Department Center 12/02/2023 JF MOTTA COLEMAN [facility] No family history on file Normal [facility] Glucose Poct Glucometerson 0 04-24-2023 Commemt1 Glu2: Cleaned Meter Normal [facility] Comment on above: Result Comment: PERF ORMED BY: [facility] [address] [place] [address] PATHOLOGIST TRADE FACILITATOR MARKELL WILDE M.D. Performed By: #### G LULS #### Point of Care testing , Glucose [Mass/Vol] 95 mg/dL Normal [facility] Comment on above: Result Comment: [facility] Glucose Reference Range is dependent on time and content of last meal. Glucose of more than 200 mg/dL in a nonstressed, ambulatory subject supports the diagnosis of Diabetes Mellitus. Performed By: #### G LULS #### Point of Care testing , Alanine aminotransferase [En zymatic activity/volume] in Serum or PlasmaOrdered By: Anju Lees on 04-17-2023 ALT [Catalytic activity/Vol] 11 U/L 7-52 [facility] Albumin [Mass/volume] in Ser um or Plasma by Bromocresol green (BCG) dye binding methoOrdered By: Anju Lees on 04-17-2023 Albumin BCG dye [Mass/Vol] 3.7 g/dL 3.5-5.7 [facility] Alkaline phosphatase [Enzyma tic activity/volume] in Serum or PlasmaOrdered By: Anju Lees on 04-17-2023 ALP [Catalytic activity/Vol] 110 U/L 34104 [facility] Aspartate aminotransferase [ Enzymatic activity/volume] in Serum or PlasmaOrdered By: Anju Lees on 04-17-2023 AST [Catalytic activity/Vol] 16 U/L 1339 [facility] Basophils Auto (Bld) [#/Vol] Ordered By: Anju Lees on 04-17-2023 Basophils (Bld) [#/Vol] 0.1 10*3/uL 0.0-0.2 [facility] Basophils/100 WBC Auto (Bld) Ordered By: Anju Lees on 04-17-2023 Basophils/100 WBC (Bld) 0.6 % . [facility] Bilirubin.total [Mass/volume ] in Serum or PlasmaOrdered By: Anju Lees on 04-17-2023 Bilirubin [Mass/Vol] 0.5 mg/dL 0.3-1.0 [facility] CMP with reflex to A1Con Albumin [Mass/Vol] 3.7 g/dL Normal 3.5-5.7 [facility] Comment on above: Performed By: #### C MP wRFX A1C, CBC #### [facility] [address] Albumin/Globulin [Mass ratio] 1.9 {ratio} Normal [facility] Comment on above: Performed By: #### C MP wRFX A1C, CBC #### [facility] [address] ALP [Catalytic activity/Vol] 110 U/L High 34-104 [facility] Comment on above: Result Comment: PERF ORMED BY: [facility] [address] [place] [address] PATHOLOGIST TRADE FACILITATOR MARKELL WILDE M.D. Performed By: #### C MP wRFX A1C, CBC #### [facility] [address] ALT [Catalytic activity/Vol] 11 U/L Normal 7-52 [facility] Comment on above: Performed By: #### C MP wRFX A1C, CBC #### [facility] [address] Anion gap [Moles/Vol] 10.3 mmol/L Normal 6.0-15.0 [facility] Comment on above: Performed By: #### C MP wRFX A1C, CBC #### [address] AST [Catalytic activity/Vol] 16 U/L Normal 13-39 [facility] Comment on above: Performed By: #### C MP wRFX A1C, CBC #### [address] Bilirubin [Mass/Vol] 0.5 mg/dL Normal 0.3-1.0 [facility] Comment on above: Performed By: #### C MP wRFX A1C, CBC #### [address] Calcium [Mass/Vol] 9.5 mg/dL Normal 8.6-10.3 [facility] Comment on above: Performed By: #### C MP wRFX A1C, CBC #### [place] [address] [place] Chloride [Moles/Vol] 102 mmol/L Normal 98-107 [facility] Comment on above: Performed By: #### C MP wRFX A1C, CBC #### [facility] [address] [place] [address] [place] CO2 [Moles/Vol] 31.9 mmol/L High 21.0-31.0 [facility] Comment on above: Performed By: #### C MP wRFX A1C, CBC #### [facility] [address] [place] [address] [place] Creatinine [Mass/Vol] 1.01 mg/dL Normal 0.60-1.20 [facility] Comment on above: Performed By: #### C MP wRFX A1C, CBC #### [facility] [address] [place] [address] [place] GFR/1.73 sq M.predicted MDRD (S/P/Bld) [Vol rate/Area] 56.627 mL/min/{1.73_m2} [facility] Comment on above: Performed By: #### C MP wRFX A1C, CBC #### [facility] [address] Globulin (S) [Mass/Vol] 2.0 g/dL Normal [facility] Comment on above: Performed By: #### C MP wRFX A1C, CBC #### [facility] [address] Glucose [Mass/Vol] 89 mg/dL Normal 70-100 [facility] Comment on above: Performed By: #### C MP wRFX A1C, CBC #### [facility] [address] Potassium [Moles/Vol] 4.2 mmol/L Normal 3.5-5.1 [facility] Comment on above: Performed By: #### C MP wRFX A1C, CBC #### [facility] [address] [place] [address] [place] Protein [Mass/Vol] 5.7 g/dL Low 6.4-8.9 [facility] Comment on above: Performed By: #### C MP wRFX A1C, CBC #### [facility] [address] [place] [id number] [place] Sodium [Moles/Vol] 140 mmol/L Normal 136-145 [facility] Comment on above: Performed By: #### C MP wRFX A1C, CBC #### [facility] [address] [place] [id number] [place] Urea nitrogen [Mass/Vol] 23 mg/dL Normal 7-25 [facility] Comment on above: Performed By: #### C MP wRFX A1C, CBC #### [facility] [address] Calcium [Mass/volume] in Ser um or PlasmaOrdered By: Anju Lees on 04-17-2023 Calcium [Mass/Vol] 9.5 mg/dL 8.6-10.3 [facility] Carbon dioxide, total [Moles /volume] in Serum or PlasmaOrdered By: Anju Lees on 04-17-2023 CO2 [Moles/Vol] 31.9 mmol/L 21.0-31.0 [facility] Chloride [Moles/volume] in S martita or PlasmaOrdered By: Anju Lees on 04-17-2023 Chloride [Moles/Vol] 102 mmol/L 98-107 [facility] Complete Blood Count Auto Di ffon 04-17-2023 Basophils (Bld) [#/Vol] 0.1 10*3/uL Normal 0.0-0.2 [facility] Comment on above: Result Comment: PERF ORMED BY: [place] [address] PATHOLOGIST TRADE FACILITATOR MARKELL WILDE M.D. Performed By: #### C MP wRFX A1C, CBC #### [address] Basophils/100 WBC (Bld) 0.6 % Normal . [facility] Comment on above: Performed By: #### C MP wRFX A1C, CBC #### [facility] [address] [place] [address] [place] Eosinophils (Bld) [#/Vol] 0.3 10*3/uL Normal 0.0-0.45 [facility] Comment on above: Performed By: #### C MP wRFX A1C, CBC #### [address] Eosinophils/100 WBC (Bld) 3.1 % Normal . [facility] Comment on above: Performed By: #### C MP wRFX A1C, CBC #### [address] Erythrocyte distribution width (RBC) [Ratio] 16.3 % High 11.9-15.3 [facility] Comment on above: Performed By: #### C MP wRFX A1C, CBC #### [address] Hematocrit (Bld) [Volume fraction] 33.3 % Low 34.0-46.4 [facility] Comment on above: Performed By: #### C MP wRFX A1C, CBC #### [address] Hemoglobin (Bld) [Mass/Vol] 11.1 g/dL Low 11.8-15.4 [facility] Comment on above: Performed By: #### C MP wRFX A1C, CBC #### [address] Lymphocytes (Bld) [#/Vol] 2.1 10*3/uL Normal 1.00-4.8 [facility] Comment on above: Performed By: #### C MP wRFX A1C, CBC #### [address] Lymphocytes/100 WBC (Bld) 22.7 % Normal . [facility] Comment on above: Performed By: #### C MP wRFX A1C, CBC #### [address] MCH (RBC) [Entitic mass] 27.9 pg Normal 24.7-34.3 [facility] Comment on above: Performed By: #### C MP wRFX A1C, CBC #### [address] MCV (RBC) [Entitic vol] 83.3 fL Normal 80-100 [facility] Comment on above: Performed By: #### C MP wRFX A1C, CBC #### [address] Mean Corpuscular HGB Conc 33.4 g/dL Normal 32.0-35.0 [facility] Comment on above: Performed By: #### C MP wRFX A1C, CBC #### [facility] [address] Monocytes (Bld) [#/Vol] 0.6 10*3/uL Normal 0.0-0.8 [facility] Comment on above: Performed By: #### C MP wRFX A1C, CBC #### [facility] [address] [place] [address] [place] Monocytes/100 WBC (Bld) 6.5 % Normal . [facility] Comment on above: Performed By: #### C MP wRFX A1C, CBC #### [facility] [address] Neutrophils (Bld) [#/Vol] 6.1 10*3/uL Normal 1.8-7.7 [facility] Comment on above: Performed By: #### C MP wRFX A1C, CBC #### [address] Neutrophils/100 WBC (Bld) 67.1 % Normal . [facility] Comment on above: Performed By: #### C MP wRFX A1C, CBC #### [place] [address] [place] NRBC% 0.1 /100{WBC} Normal 0-0.5 [facility] Comment on above: Performed By: #### C MP wRFX A1C, CBC #### [facility] [address] [place] [address] [place] Platelet mean volume (Bld) [Entitic vol] 8.7 fL Normal 6.3-10.7 [facility] Comment on above: Performed By: #### C MP wRFX A1C, CBC #### [facility] [address] [place] [address] [place] Platelets (Bld) [#/Vol] 249 10*3/uL Normal 150-450 [facility] Comment on above: Performed By: #### C MP wRFX A1C, CBC #### [facility] [address] [place] [address] [place] RBC (Bld) [#/Vol] 4.00 10*6/uL Normal 3.60-5.00 [facility] Comment on above: Performed By: #### C MP wRFX A1C, CBC #### [facility] [address] WBC (Bld) [#/Vol] 9.1 10*3/uL Normal 3.8-11.6 [facility] Comment on above: Performed By: #### C MP wRFX A1C, CBC #### [facility] [address] Creatinine [Mass/volume] in Serum or PlasmaOrdered By: Anju Lees on 04-17-2023 Creatinine [Mass/Vol] 1.01 mg/dL 0.60-1.20 [facility] ECG 12 lead ECGon 04-17-2023 ECG 12 lead ECG [facility] Main [place] [address] [place] [address] Electrocardiograph Report Signed Patient: Zachary Maynard MR#: [id number] : 1945 Acct:[id number] Age/Sex: 77 / F ADM Date: 04/17/23 Loc: Room: Type: [facility] Attending Dr: Anju Lees MD [...] previous ECGs available Confirmed by BAILEE MACIAS FACJASON ([id number]) on 04/17/2023 3:12:20 PM Referred By: FREDDY Electronically Signed By:JASON MARIE MD FAC Transcribed By: MUS Signed By Bonifacio Marie MD 04/17/23 1512 Normal [facility] Eosinophils Auto (Bld) [#/Vo l]Ordered By: Anju Lees on 04-17-2023 Eosinophils (Bld) [#/Vol] 0.3 10*3/uL 0.0-0.45 [facility] Eosinophils/100 WBC Auto (Bl d)Ordered By: Anju Lees on 04-17-2023 Eosinophils/100 WBC (Bld) 3.1 % . [facility] Erythrocyte distribution wid th Auto (RBC) [Ratio]Ordered By: Anju Lees on 04-17-2023 Erythrocyte distribution width (RBC) [Ratio] 16.3 % 11.9-15.3 [facility] Globulin Calc (S) [Mass/Vol] Ordered By: Anju Lees on 04-17-2023 Globulin (S) [Mass/Vol] 2.0 g/dL [facility] Glucose [Mass/volume] in Ser um or PlasmaOrdered By: Anju Lees on 04-17-2023 Glucose [Mass/Vol] 89 mg/dL 70-100 [facility] Hematocrit Auto (Bld) [Volum e fraction]Ordered By: Anju Lees on 04-17-2023 Hematocrit (Bld) [Volume fraction] 33.3 % 34.0-46.4 [facility] Hemoglobin [Mass/volume] in BloodOrdered By: Anju Lees on 04-17-2023 Hemoglobin (Bld) [Mass/Vol] 11.1 g/dL 11.8-15.4 [facility] Leukocytes [#/volume] correc lovely for nucleated erythrocytes in Blood by Automated counOrdered By: Anuj Lees on 04-17-2023 WBC corrected for nucl RBC Auto (Bld) [#/Vol] 9.1 10*3/uL 3.8-11.6 [facility] Lymphocytes Auto (Bld) [#/Vo l]Ordered By: Anju Lees on 04-17-2023 Lymphocytes (Bld) [#/Vol] 2.1 10*3/uL 1.00-4.8 [facility] Lymphocytes/100 WBC Auto (Bl d)Ordered By: Anju Lees on 04-17-2023 Lymphocytes/100 WBC (Bld) 22.7 % . [facility] MCH Auto (RBC) [Entitic mass ]Ordered By: Anju Lees on 04-17-2023 MCH (RBC) [Entitic mass] 27.9 pg 24.7-34.3 [facility] MCHC Auto (RBC) [Mass/Vol]Or dered By: Anju Lees on 04-17-2023 MCHC (RBC) [Mass/Vol] 33.4 g/dL 32.0-35.0 [facility] MCV Auto (RBC) [Entitic vol] Ordered By: Anju Lees on 04-17-2023 MCV (RBC) [Entitic vol] 83.3 fL 80-100 [facility] Monocytes Auto (Bld) [#/Vol] Ordered By: Anju Lees on 04-17-2023 Monocytes (Bld) [#/Vol] 0.6 10*3/uL 0.0-0.8 [facility] Monocytes/100 WBC Auto (Bld) Ordered By: Anju Lees on 04-17-2023 Monocytes/100 WBC (Bld) 6.5 % . [facility] Neutrophils Auto (Bld) [#/Vo l]Ordered By: Anju Lees on 04-17-2023 Neutrophils (Bld) [#/Vol] 6.1 10*3/uL 1.8-7.7 [facility] Neutrophils/100 WBC Auto (Bl d)Ordered By: Anju Lees on 04-17-2023 Neutrophils/100 WBC (Bld) 67.1 % . [facility] No Panel InformationOrdered By: Anju Lees on 04-17-2023 Estimated GFR (CKD-EPI) 56.627 mL/Min [facility] Creatinine Clearance (Chem N/A [facility] Nucleated erythrocytes [Pres ence] in Blood by Automated countOrdered By: Anju Lees on 04-17-2023 Nucleated RBC Auto Ql (Bld) 0.1 /100{WBC} 0-0.5 [facility] Platelet mean volume Auto (B ld) [Entitic vol]Ordered By: Anju Lees on 04-17-2023 Platelet mean volume (Bld) [Entitic vol] 8.7 fL 6.3-10.7 [facility] Platelets Auto (Bld) [#/Vol] Ordered By: Anju Lees on 04-17-2023 Platelets (Bld) [#/Vol] 249 10*3/uL 150-450 [facility] Potassium [Moles/volume] in Serum or PlasmaOrdered By: Anju Lees on 04-17-2023 Potassium [Moles/Vol] 4.2 mmol/L 3.5-5.1 [facility] Protein [Mass/volume] in Ser um or PlasmaOrdered By: Anju Lees on 04-17-2023 Protein [Mass/Vol] 5.7 g/dL 6.4-8.9 [facility] RBC Auto (Bld) [#/Vol]Ordere d By: Anju Lees on 04-17-2023 RBC (Bld) [#/Vol] 4.00 10*6/uL 3.60-5.00 [facility] Serum or plasma albumin/glob ulin mass ratioOrdered By: Anju Lees on 04-17-2023 Albumin/Globulin [Mass ratio] 1.9 {ratio} [facility] Serum or plasma anion gap de terminationOrdered By: Anju Lees on 04-17-2023 Anion gap [Moles/Vol] 10.3 mmol/L 6.0-15.0 [facility] Sodium [Moles/volume] in Ser um or PlasmaOrdered By: Anju Lees on 04-17-2023 Sodium [Moles/Vol] 140 mmol/L 136-145 [facility] Urea nitrogen [Mass/volume] in Serum or PlasmaOrdered By: Anju Lees on 04-17-2023 Urea nitrogen [Mass/Vol] 23 mg/dL 7-25 [facility] WBC Auto (Bld) [#/Vol]Ordere d By: Anju Lees on 04-17-2023 WBC (Bld) [#/Vol] 9.1 10*3/uL 3.8-11.6 [facility] XR hand RT min 3V*on 024 XR hand RT min 3V* [facility] Main [address] [address] XRay Report Signed Patient: Zachary Maynard MR#: [id number] : 1945 Acct:[id number] Age/Sex: 77 / F ADM Date: 04/08/23 Loc: [facility] Room: Type: [facility] Attending Dr: Anju Lees MD [...] Sammie Arizmendi M.D.04/08/2023 1:57 PM Dictation Location: [place] [address] Transcribed By: [facility] 04/08/23 1357 Dictated By: Sammie Arizmendi MD 04/08/23 1353 Signed By: 04/08/23 1357 [facility] ECHOCARDIO M/2D COMPLETEon 0 05-29-2022 ECHOCARDIO M/2D COMPLETE Patient: ZACHARY MAYNARD Exam Date: 05/29/2022 : 1945 Gender:F Ordering : DR ADINA BUNCH . Admission #: [id number] Family : Order #: [id number] CLICK HERE TO VIEW EXAM ECHOCARDIOGRAM REPORT [...] Shore M.D. on 05/30/2022 at 18:[address] [facility] CON EXAMINATION: MRI BRA IN [facility], 05/29/2022 10:52 AM EDT HISTORY: Syncope and [...] RENATA GAYTAN Date: 2022-05-29 13:51 Normal [facility] US CAROTID ART BILon 023 US CAROTID [...] RENATA GAYTAN Date: 2022-05-29 12:55 Normal [facility] Covid-19 PCR (CVDTBH)on 01-24 SARS-CoV-2 (COVID-19) RNA ARMIN+probe Ql (Unsp spec) Not detected Normal NOT DETECTED [facility] Comment on above: Result Comment: This test is not yet approved or cleared by the [place] FDA. When there are no FDA-approved or cleared tests available, and other criteria are met, FDA can make tests available under an emergency access mechanism called an Emergency Use Authorization (EUA). The EUA for this test is supported by the [place] [employer] of Health and Human Service's (HHS's) declaration [...] consistent with SARS-CoV-2. Performed By: #### C VDTBH #### [facility] [address] [address] [address] Samuel Kang Ambulatory Clinical Summaryo n 09-11-2020 Ambulatory Clinical Summary {[id number] }CD:[id number] [facility] Patient Educationon 09-12-19 Patient Education Nutrition Calorie Counting for Weight [...] You could (more content not included)... Normal [facility] Urology Office/Clinic Noteon 09-11-2020 Urology Office/Clinic [...] With When Contact Information Tushar Nunez MD, VICTORINO Loya In 6 months [phone] Additional Instructions: Patient Education Calorie Counting for Weight Loss Anastasia Marr, personally scribed for Dr. Stewart on 09/11/2020 16:08:41. . Documentation recorded by the scribe, Anastasia Cabral, accurately reflects the services(s) I performed and decisions made by me. Authenticated by Dr. Stewart on 09/11/2020 16:11:48. Problem List/Past Medical History [...] (COVID-19) mR (more content not included)... Normal [facility] Comment on above: Result Comment: Elec tronically Signed By: TR MACIAS, Thuan Don\.andrew\Date and Time Signed: 09/11/20 16:11 EDT\.br\Electronically Co-Signed By: Anastasia Cabral\.br\Date and Time Co-Signed: 09/11/20 16:08 EDT Ambulatory Clinical Summaryo n 08-08-2020 Ambulatory Clinical Summary {[id number] }[id number] Normal [facility] Patient Educationon 08-09-19 Patient Education Urology Urinary Incontinence Urinary incontinence [...] nerve stimulation). ? For women, using a director biomedical engineering to prevent urine leaks. This is a [...] after experiencing incontinence. General instructions ? Take xxto-opz-btprsui and prescription medicines only as (more content not included)... Normal [facility] Urology Office/Clinic Noteon 08-08-2020 Urology Office/Clinic [...] MD, Jude Farias, URO [address] [place] [address] [place] [address]- Additional Instructions: 1mos. f/u Patient Education Urinary Incontinence I, Kisha Stevens , personally scribed for Dr. Finley on [...] of urethral (more content not included)... Normal [facility] Comment on above: Result Comment: Elec tronically Signed By: Jude Finley Jr., MD\.br\Date and Time Signed: 08/08/20 11:28 EDT\.br\Electronically Co-Signed By: Kisha Stevens MA\.br\Date and Time Co-Signed: 08/08/20 11:15 EDT Operative Reporton Operative Report [id number]#[id number]: 127 Normal [facility] Pathology Noteon 07-27-2020 Pathology Note [id number] :127 Normal [facility] Comment on above: Result Comment: Elec tronically Signed By: Jude Finley Jr., MD\.br\Date and Time Signed: 08/07/20 11:22 EDT ECG 12-Leadon 07-24-2020 ECG 12-Lead [id number]#1.00CD: 127 [facility] ED Note-Physicianon 07-25-19 ED Note-Physician [id number]#1.00CD:1 27 [facility] Lab Reportson 07-24-2020 Lab Reports [id number]#1.00CD: 127 [facility] Lab Reports [id number]#1.00CD: 127 [facility] RAD - MISCon 07-24-2020 RAD - MISC [id number]#1.00CD: 127 [facility] Insurance Correspondence Off iceon 07-20-2020 Insurance Correspondence Office [id number]#1.00CD: 127 [facility] Operative Reporton Operative Report [id number]#1.00CD: 127 [facility] Physician Orderon 07-12-2020 Physician Order [id number]#1.00CD: 127 [facility] Pre-Authorization for Medica l Treatmenton 07-12-2020 Pre-Authorization for Medical Treatment [id number]#1.00CD :127 [facility] Ambulatory Clinical Summaryo n 07-11-2020 Ambulatory Clinical Summary {[id number] }CD:[id number] [facility] Patient Educationon 07-12-19 Patient Education Obstetrics [...] including vitamins, herbs, eye drops, creams, and jqap-tzm-eopifht medicines. ? Any problems you or family [...] diabetes medicines or blood thinners. ? Taking twck-xzo-uowfmli medicines, vitamins, herbs, and supplements. ? Taking [...] to r (more content not included)... Normal [facility] Urology Office/Clinic Noteon 07-11-2020 Urology Office/Clinic Note Chief Complaint 3 week follow up This patient is a 75-year-old female with a history of a grade 2 midline cystocele. She is here today to discuss treatment options. She does have some symptoms of stress incontinence. She underwent cystoscopic examination with dilation of her urethra on May 08 2020. [facility] Staff Zachary is a 75 y.o. female [...] urine and/or bladder capacity by US- non-imaging 18358 Urnls Dip Stick Auto w/o Microscopy POC 63703 Urology Procedure Order 2. Cystocele with prolapse [...] Jude Farias, [facility] [address] [place] [address]- Additional Instructions: Patient Education Urethral Vaginal Sling [...] UTI Hypertensio (more content not included)... Normal [facility] Comment on above: Result Comment: Elec tronically Signed By: Tushar Nunez MD, Jude Farias\.br\Date and Time Signed: 07/11/20 14:49 EDT\.br\Electronically Co-Signed By: Libby Cahmbers MA\.br\Date and Time Co-Signed: 07/11/20 14:30 EDT Ambulatory Clinical Summaryo n 06-20-2020 Ambulatory Clinical Summary {[id number] }CD:[id number] Normal [facility] Patient Educationon 06-21-19 Patient Education Urology [...] including vitamins, herbs, eye drops, creams, and qfor-tbj-quwrgkz medicines. ? Any problems you or family [...] tells you to take them. ? Taking cuuw-vif-zgvcrvf medicines, vitamins, herbs, and supplements. General instructions [...] these instructions at home: Medicines ? Take jnsu-slj-deofnvq and prescription medicines only as told by [...] to prevent or treat constipation: ? Take bevy-ijn-oidebsx or prescription medicines. ? Eat foods that [...] You pa (more content not included)... Normal [facility] Urology Office/Clinic Noteon 06-20-2020 Urology Office/Clinic [...] Urnls Dip Stick Auto w/o Microscopy POC 02415 I have reviewed the previous health record information and history for this patient from Dr. Finley Follow-up With When Contact Information Tushar Nunez MD, Jude Farias, [facility] [address], [place] [address]- Additional Instructions: 2 weeks Patient Education Urethral Dilation Maria Del Carmen Marr personally scribed for Dr. Finley on 06/20/2020 14:23:50. . Documentation recorded by the scribeMaria Del Carmen, accurately reflects the services(s) I performed and decisions made by me. Authenticated by Dr. Finley on 06/20/2020 14:34:50. Problem List/Past Medical History Ongoing Arthritis Asthma Bladder infection Bladder outlet obstruction COPD mixed type (more content not included)... Normal [facility] Comment on above: Result Comment: Elec tronically Signed By: Jude Finley Jr., MD\.br\Date and Time Signed: 06/20/20 14:36 EDT\.br\Electronically Co-Signed By: Maria Del Carmen Hernandez MA\.br\Date and Time Co-Signed: 06/20/20 14:24 EDT Coding Summary.on 06-16-2020 Coding Summary. CD:[id number]:[id number] Gh0b Ww+PGhlYWQ+ZA7UDBNwD95kf XAdiI2OA4cPIL9VHKCVLMJFB T6WJP7pxDK5ZRifU3XuuqMe CktnoIOzMQ86KLg7PHG6fOvh XIudjF8xqTKjU8o4UhXfJV41 jH70MTqtJKHvKiP7HlStmslz bWFy H8ydOhIcsXHgBrj+PHRhYmxl IHdpZHRoPScxMDAlJyBzdHls HX4aTg3mRRCzGKUdjLjlzIVx OiBj l0nuPYSzLCgbLK6cyEyfA6Fx uDF4ESWhz2s3Rq60uSS+PHRk PHN9oExqUEycc338FwHod2vi IDM3 bPAgLIaeIRB8Q00kq4V1AJCx OUIpOKY2tDL3sN7cjJteeoqy A2QkxVVrEnE9ZTC6lCWauZ9p bGln isnyqA9jBop+P23RXK2VXHIZ UF8XOws1H1GjPpkavJN+PC90 GMUuPL25fMTwgNPoa6zomGp4 JzEw BSUyBBR6cBtnHVkdr2ApDECy G18xnQWuq5E2RRFybIhbwRXn ZsIovBT7oJ9gEGnvdvjri0ty dzsn Xeste1pbtx28wV25M38vMWcw KZYtQRX0NKPgCSXbjIrjsc5h zR7aGj7+IIsmy8wri6auoGh3 IjIw JJVvplRiwCboYIG1i6DfVp75 T9QatEzgx8QaSny0cr16mDPh x1C3jLG2GFdoMSBmvU0eHLqh ZnQ6 LGPfPbSpwZ12iGMvWIyyOs2p xKkqrZsvZP0xJJYjmyqfKCXk xW5yTELzpPUgfEpyZA8pFMHo bjtm s179BgIkARW3NUOdkXGcJ4Px eR3uZxMsBMNgDMSkM8CbmYVx YQhfW625VUfgKjU3VTJdntQc Y2Fs BBPuuZinMeY4d1N5Yx8Mm5Kr sdnpTNJ1MJosKOI8ZnBzPgIc NjL1X8UjEcg5TYDzwQdmNH4m J3Bh ZAVcabocplsxhNH1JQYqAGNx gW31uDNtJWzoGp2ib9A7g951 FHNrBMBrqX83Ib2oaXopLZEf dCBU fE7exmcue4eulvhhArEnJNTy VIy5WPy8CYHobMrlAjHuEYP4 KoL2MHM3bXIqnG4ycTvrcuxg dG9w Oyc+M06ljW7iIXT7PPL8bxhh ZHZaucJyCI55YY64X1ErZmsb dGFibGU+NFXwhsYxjQjzTT3z YmFj w4ing4QjKEkcF8UnHQHiQOtk Oxd3UQIgEOP8bSN5hZ6mQTXo FWmca5P7gTB5T1ZumvIeww2x b2xs SGQhNQlfM19beGPwm0T3JKLv hZR3YIOxvJjiErJojA42Vob+ TTQshRykv6ZsWwefi5zqv2ng dGg9 CpLdDJEfwdVddIzhKTR4r6Dr Yx95G12hIMltHKGfEQWtKBQb UFEwuMdkft5tbU4vZy5+PGNv bCB3 lFN1fN0zKJLzNmO7CMauW316 MpCfuTViMixxp9bua4qarBt3 RvAkKTGmhpWmnVvcUZL1v6Qn Lz48 S51qKMloKKXnASEyTDTqWIOc nQyuzn2mpL7gEy9+BH6xg2nj xm08hF11tTW+GQVxVBP8xYco PSdw BKRdmX8cNCmwJgD1JLWgEiMw xX30lWVkXVonGf8cqLclmYny PJ5tBBPlnlkfy160KhOqa1ob IDEw eETlOCsbOHK6V11th2R1SDAy DFExCTH5rBP1lW7xtWvgkdmy bGVmdDsgdmVydGljYWwtYWxp Z246 IHRvcDsnPlBhdGllbnQgTmFt RBj2A0ZxWzm0RUPxvBesBR6s fYVfRXtgTe3yaKswpFaoYE5c NTBp ztrob827MnXsa0pfYXRtnSJh LUmjKPO8X31br6A0RQXdFOWi RYB6oTW9zZ7dtQtfyimukPDz dDsg tjDxkMakCTtfHLsuQ632WHDr xIaxOnTbocZpFWBgbQH8YP31 WP84oIFpm3W8bRL4G7UiHTTv bmct nffmnHE6OFCfGRRdoU86Xi1t jVjhEj2sCKKuMOI1QNUjiIQg T7RxsT8cGyEaYMMtNQBxK5Qn eHQt RYrfQ227XGahMlG9LHLfitNg T7NbKAOszSqlEbU8o8Z7Vi1X A5B6OP68MT22nECev8T0jAG8 J3Bh JVQcrlatcyaydSO5UQLjFJHu eJ93Gv8pfUzlHw4dYMZhOZT2 ZJFawSDzD9CkgL6lNlXxSRFx MDAw T9FtzGMrVRxwD012USshPqT8 VUBbstRwQ2BpDOSmmQurNhI7 p0T9Vp9VHYj9MB69YL91hSBa c3R5 vFX6N0YzREFjkhipmiolfJQ3 TAOhFEKpaN47Ja0rvKajWs1r URLhHKI2IUOntCVdA8IxvK7q OiAj CKNrBMJqQ7BcfWCuYFmcX793 ZGojRvR5XJZyceTgS1TxLXEo oRsvRvN8i3L7Ey2IJEEqVD75 IFR5 qRX1AC84RZ96O1UgNgupwZEj bGU+PHRhYmxlIHdpZHRoPScx TPTvJvFazRlmUY7kNq4sOLFi LWNv gAxcoGQuTnQmz2skSCSsNHus MN0kkJufW1OltNR5SLSwy7m3 Yy85U56gS4OqkCS+PGNvbCB3 aWR0 gY3oKaIsNsH3XRmyO361XuAh uHXdVfjwe4oez8bdySp8UjP1 MGIaviHicUjnSOF8t9HkDk69 Y29s IHdpZHRoPSIxNSUiIHZhbGln rm6rpR2uXs9+TJKrpIX4bLB2 xV0mNiDuEvU9EAeaK748JwWj cCIv Wendi1fie5pzgOs4OiCdUTCr lqVvaMehIGO4z0RtTu79U1Fn vYwrg3BoPll6lm11jFIue9B4 bGU9 L4QvACFlthgqvCIhzAmvAC4o HVZbgojhGMEqdZ1xBBCgO1f6 ExYlGbC4NGoyV9YfcfE3BIMt cHQg QMkwKKI6X97mz4W5GAGcBSSo DZD7eOH8wD1npMpptcjseGYf vLacklQrhIwaTGnfYCiiI844 IHRv lEkuOIVwxI0oTALebDIkrHse JG9fTIOnglicRxpHX2eKOV8Q LCBHUkVUVEEgQTwvdGQ+PHRk IHN0 sZyvINthNPJshP5cVKBsN9h0 WvOhZuB0VKeaU7TnPQRnsuiv Nn03yZ2iRfUuOwR7FAjdM3Cs bnQ6 XMZsnZWuYZfcXRC7B70sv4R6 DBNnLJBzDCI0oWE0yM7zcRxx bjogbGVmdDsgdmVydGljYWwt YWxp W304YLYnrUjkFgRuDaPkAnG5 ZHX3Y9AgWnn2ESMepMgnQA1m pHQwLGzbWp2cvEemsDneEC8a NTBp gzhdJRZbhC0lZVBnfLHcqTxx LI9eFTErpoisk053FoYxSNT5 UEHhcKGmX1RvkX0uGoPvLASr MDAw S4FkbNIrWSjvC737ZNicVkW1 KUYhrnDrN8ApIVYcuQpsQyH0 a9Y3Ww41AyBJGAByphezaSE+ PHRk HPI8aZplRYarTGLquX0tZBQi V1b3QtRkPvM6FWaoP8AuTAYk tyxiAj08fJ6cGhZyKzX7ZGdw O2Zv vrN3FZOciJLxIHutPRO6D77p v9W5MXFuFRWoEHG6uUP3gU8e bGlnbjogbGVmdDsgdmVydGlj YWwt UOqqQ651ELSsmBuvGsZpoVZy ZTwvdGQ+VZGoQDL4fBegHPwk WZVorM4aIEBmG2k8MuKtZuS4 MGlu X0WuHZXodninEb26iG8kKaTg PcO8GLocJ2OcmlZ3REXntUAh CGidPPF6T05ff5E5DMZyGBXa MDA7 gKN6zC3nvPvzwqdkbYCsqFhk vpDxmPcoOHljQJiwK207TOTc yLwbLm39fTBcqVorkeS3D8Pk Pjwv dHI+ZL38IZKaZE04fHWxiTLd g2kknTp1WoLvZKOxJNO4qFrv CUlnj9MyKOGkG73ikWPbx8G1 IGNv eBpysXZmRyBevUA6iJ7pBKyx ucepe7qtbtmbTmkna0ledl86 dV51P82oHFohCWMiVTYqMSFn IHZh lRumfd9ecP3tHp1+PGNvbCB3 zJO9jX2gDwIpJbV4DDlbS936 KgLakKJcSyqfa8yhv4pznJy1 IjIw BKTstaFvwAduXKH3i8JbRg06 R16iPEtbNYCsHCIiLZZeZMSu yMatjx9ghP0hEe3+CI5fs5ak cm91 nP91sRE+CPInNTC8nCvsYHcn YYFirK7uYLtaPsP6YJXkIjRi iI88yYQfJVurZc1gzPeueDqy MC4w KPLzjpzej469JqMxl6qbBOKu vSEfFJnrCVZ4U00ze3X9XASg JVQyKMU0jYN8wR8znAxomjac bGVm fToopkTraVbfSJnqOJguK930 WHUraJrrFoXcdZYoQ2uecbRM ZP5lPbgdsVT+IUMrYDQ9xNhz PSdw QHSglB2fBFHdZ9d7TtSuGfI1 VNoyW3LcrkU2XXQypZHpJVIo dAJQvS2xnhawk2nmhyccPzGz MDAw AOr6UMg3EPAxaQywUxNvMKZ6 LdJ0MTW8mEHrnY2dqLtaxrsw dJ4zNej+RklOOjwvdGQ+PHRk IHN0 mNaiZEzfDXShaE7tFUKgY5m8 SgPxGwX5IYucT3DjhgA0OAHu wQNcYLGqzJLOoF0ibpkrc1qw cjog XvMsXCYjBNo8DPd8ULVeaAdg JkAoMJI9GbU6LGM9rRHdjH0w ySxxklfeeD5iFin+TVJOOjwv dGQ+ GUPlZLR6vAquUGtmXOYpuR6t INKlR4f4BtNbRyG8JMihO3Pv sqA9XPPoiTKpNCQtgQVDiP5w cztj a3yeurhzDbNaCIHwCZb4WNf2 APKseQdpJtXlAOQ7WwB7SYC4 tBClhW4cgZrvekvthN8gSop+ UGF5 VNR4KD04IT82J4YyVzgiuGAj bGU+PHRhYmxlIHdpZHRoPScx FDRpIlEggUvfVF6xXg4nNXGl LWNv bGxh (more content not included)... [facility] Consent for Procedure/Surger yon 06-15-2020 Consent for Procedure/Surgery [id number]#1.00CD :127 [facility] Consent for Treatmenton 05-26 Consent for Treatment [id number]#1.00CD: 127 [facility] Discharge Instructionson Discharge Instructions [id number]#1.00CD :127 [facility] IntraOperative Documentson 0 06-15-2020 IntraOperative Documents [id number]#1.00CD :127 [facility] Main OR Intraoperative Recor don 06-15-2020 Main OR Intraoperative Record IntraOp Document Type FTURO Summary Primary Physician: Jude Finley Jr., MD Finalized Date/Time: 06/15/20 15:02:47 Pt. Name: ZACHARY MAYNARD/Sex: 1945 Female Med Rec #: [id number] Physician: Jude Finley Jr., MD Financial #: [id number] Pt. Type: O Room/Bed: / Admit/Disch: 06/15/20 13:40:05 - Institution: Case Times FTURO Entry 1 Patient Times In Room 06/15/20 14:48:00 Out Room 06/15/20 15:02:00 Procedure Times Start 06/15/20 14:50:00 Stop 06/15/20 14:52:00 Anesthesia Times Last Modified By: Mar Sirisha MELGAR 06/15/20 15:02:42 Case Attendance FTURO Entry 1 Entry 2 Entry 3 Case Attendee Tushar Nunez MD, Jude Herrera AUDIT ASSOCIATE, Pauly Manuel RN, Sirisha Moseley Performed Surgeon - Primary Scrub - Primary Larry Operator - Primary Time In 06/15/20 14:48:00 06/15/20 [...] Surgeon Tushar Nunez MD, Jude Farias Start 06/15/20 14:50:00 Stop 06/15/20 14:52:00 Anesthesia [...] Jude Finley Jr., MD, Verified (If Participants [place] Pauly WHITESIDE, Applicable) Sirisha Manuel RN Time Out Complete [...] By: Sirisha Manuel RN 06/15/20 15:02 Normal [facility] Main OR Preoperative Recordo n 06-15-2020 Main OR Preoperative Record Holding Area Document Type FTURO Summary Primary Physician: Jude Finley Jr., MD Finalized Date/Time: 06/15/20 14:34:27 Pt. Name: ZACHARY MAYNARD/Sex: 1945 Female Med Rec #: [id number] Physician: Jude Finley Jr., MD Financial #: [id number] Pt. Type: O Room/Bed: / Admit/Disch: 06/15/20 [...] 14:25 Sirisha Manuel RN 06/15/20 14:34 Normal [facility] Operative Reporton Operative Report Patient: ZACHARY MAYNARD Age: 75 years Sex: Female : 1945 Associated Diagnoses: None Author: Jude Finley Jr., MD Procedure Operative Information Details: Date/ Time: 06/15/2020 [...] urine. The Urethra was dilated to: 24 Palauan w/ sounds. Devices Implanted: None. Removal: Cystoscope is removed, The patient tolerated it well. Postoperative Information Discharge: Patient is discharged home with antibiotic coverage, Follow up arranged, Office visit will be planned to make arrangements for repair of cystocele.. Normal [facility] Comment on above: Result Comment: Elec tronically Signed By: Tushar Nunez MD, Jude Farias\.andrew\Date and Time Signed: 06/15/20 14:59 EDT Pre-Authorization for Medica l Treatmenton 06-13-2020 Pre-Authorization for Medical Treatment [id number]#1.00CD :127 Normal [facility] Ambulatory Clinical Summaryo n 06-12-2020 Ambulatory Clinical Summary {[id number] }CD:[id number] [facility] Patient Educationon 06-13-19 21 Patient Education Urology Urinary Incontinence Urinary [...] nerve stimulation). ? For women, using a director biomedical engineering to prevent urine leaks. This is a [...] after experiencing incontinence. General instructions ? Take walt-meo-niosyvd and prescription medicines only as (more content not included)... Normal [facility] Urology Office/Clinic Noteon 06-12-2020 Urology Office/Clinic Note Chief Complaint Patient is here for a follow up to [facility] for ball like object HPI Staff Zachary is a 75 y.o. female here for follow up to [facility] for bladder hanging out, patient insists on planning surgery. Previous Dx: bladder infection, bladder outlet obstruction, dysuria, flank pain, gross hematuria, history of UTI, retention of urine, urethral stricture. 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 Patient was seen at [facility] on 06/07/20 for a ball like object [...] Mild, ongoinng Follow-up With When Contact Information Tushar Nunez MD, Jude Farias [phone] Additional Instructions: Patient Education Urinary Incontinence Anastasia Marr, personally scribed for Dr. Finley on 06/12/2020 10:24:21. . Documentation recorded by the Anastasia rdz accurately reflects the services(s) I performed and decisions made by me. Authenticated by Dr. Finley on 06/12/2020 10:28:20. Problem List/Past Medical History Ongoing Arthritis Asthma Bladder infection Bladder outlet obstruction COPD mixed type Cystocele with prolapse Dysuria Flank pain Gross hematuria (more content not included)... Normal [facility] Comment on above: Result Comment: Elec tronically Signed By: Jude Finley Jr., MD\.br\Date and Time Signed: 06/12/20 10:30 EDT\.br\Electronically Co-Signed By: Anastasia Cabral\.br\Date and Time Co-Signed: 06/12/20 10:24 EDT Coding Summary.on 05-23-2020 Coding Summary. CODING DATE: 021 FINAL [facility] STATUS: Home (Routine DC) PAYOR: [...] Ryann Villegas Date Saved: 05/23/2020 09:34 am [facility] Consenton 05-22-2020 Consent [id number]#1.00CD: 127 [facility] Consent for Procedure/Surger yon 05-18-2020 Consent for Procedure/Surgery [id number]#1.00CD :127 [facility] Consent for Treatmenton 04-25 Consent for Treatment [id number]#1.00CD :127 [facility] Consent for Treatment [id number]#1.00CD: 127 [facility] Discharge Instructionson Discharge Instructions [id number]#1.00CD :127 Normal [facility] IntraOperative Documentson 0 05-18-2020 IntraOperative Documents [id number]#1.00CD :127 Normal [facility] Main OR Intraoperative Recor ruben 05-18-2020 Main OR Intraoperative Record IntraOp Document Type FTURO Summary Primary Physician: Jude Finley Jr., MD Finalized Date/Time: 05/18/20 14:11:35 Pt. Name: MARIAMA MAYNARD Srinath Grimes/Sex: 1945 Female Med Rec #: [id number] Physician: Jude Finley Jr., MD Financial #: [id number] Pt. Type: O Room/Bed: / Admit/Disch: 05/18/20 13:20:33 - Institution: Case Times FTURO Entry 1 Patient Times In Room 05/18/20 13:57:00 Out Room 05/18/20 14:08:00 Procedure Times Start 05/18/20 13:58:00 Stop 05/18/20 13:59:00 Anesthesia Times Last Modified By: Myah MELGAR, RYLAND, Luz Flowers 05/18/20 14:09:40 Case Attendance FTURO Entry 1 Entry 2 Entry 3 Case Attendee Tushar Nunez MD, Jude Glasgow RN, ETHANOR, Luz Cormier AUDIT ASSOCIATESirisha Role Performed Surgeon - Primary Larry Operator - Primary Scrub - Primary Time In 05/18/20 13:57:00 05/18/20 13:57:00 05/18/20 13:57:00 Time Out 05/18/20 14:03:00 05/18/20 14:03:00 05/18/20 14:03:00 Procedure CYSTOSCOPY LOCAL WITH CYSTOSCOPY LOCAL WITH CYSTOSCOPY LOCAL WITH URETHRAL DILATION(.) URETHRAL DILATION(.) URETHRAL DILATION(.) Comments Last Modified By: Myah MELGAR, ETHANOR, Luz Glasgow RN, ETHANOR, Luz Glasgow RN, ETHANOR, Luz Flowers 05/18/20 14:01:23 05/18/20 14:01:23 05/18/20 14:01:23 Surgical [...] Jude Finley Jr., MD, Verified (If Participants RYLAND Glasgow RN, Luz Applicable) Cas[facility] Flowers CST, Kimberly A Time Out Complete 05/18/20 13:57:00 Allergies Reviewed? [...] RYLAND Glasgow RN, Lou Ann 05/18/20 14:11 [facility] Main OR Preoperative Recordo n 05-18-2020 Main OR Preoperative Record Holding Area Document Type FTURO Summary Primary Physician: Jude Finley Jr., MD Finalized Date/Time: 05/18/20 13:59:17 Pt. Name: MARIAMA MAYNARD Srinath /Sex: 1945 Female Med Rec #: [id number] Physician: Jude Finley Jr., MD Financial #: [id number] Pt. Type: O Room/Bed: / Admit/Disch: 05/18/20 [...] Glasgow RN, Lou Ann 05/18/20 13:59 Normal [facility] Operative Reporton Operative Report Patient: Karl MAYNARD Age: 74 years Sex: Female : 1945 Associated Diagnoses: None Author: Jude Finley Jr., MD Procedure Operative Information Details: Date/ Time: 05/18/2020 [...] urine. The Urethra was dilated to: 28 Palauan w/ sounds. Devices Implanted: None. Removal: Cystoscope is removed, The patient tolerated it well. Postoperative Information Discharge: Patient is discharged home with antibiotic coverage, Follow up arranged. Normal [facility] Comment on above: Result Comment: Elec tronically Signed By: Jude Finley Jr., MD\.br\Date and Time Signed: 05/18/20 14:02 EDT Ambulatory Clinical Summaryo n 05-11-2020 Ambulatory Clinical Summary {[id number] -[id number]-[id number] }CD:[id number] Normal [facility] Patient Educationon 05-12-19 Patient Education Urinary Frequency The number of [...] It is (more content not included)... Normal [facility] Urology Office/Clinic Noteon 05-11-2020 Urology Office/Clinic [...] Will order Local anesthesia. ABX sent to [facility] in Portal. 2. Retention of urine (R33.9: Retention of [...] procedure, # 2 cap(s), Refills(s) 0, Pharmacy: [facility]/pharmacy #[id number], 163, cm, 05/11/20 8:31:00 EDT, Height/Length Dosing, 64.2, kg, 05/11/20 8:31:00 EDT, W... Measure Post Void residual urine and/or bladder capacity by US- non-imaging 62781 Urnls Dip Stick Auto w/o Microscopy POC 26383 I have reviewed the previous health record information and history for this pt. from Dr. Finley. Follow-up With When Contact Inf (more content not included)... [facility] Comment on above: Result Comment: Elec tronically Signed By: Tushar Nunez MD, Jude Farias\.br\Date and Time Signed: 05/11/20 10:45 EDT\.br\Electronically Co-Signed By: Kisha Stevens MA\.br\Date and Time Co-Signed: 05/11/20 08:53 EDT Ambulatory Clinical Summaryo n 01-04-2020 Ambulatory Clinical Summary {[id number] -[id number]-p3-h2-[id number] }CD:[id number] [facility] Patient Educationon 01-04-20 20 Patient Education [...] to a urinary tract infection. Only take ltay-flf-euzgcqo or prescription medicines for pain, discomfort, or fever as directed by your caregiver. SEEK IMMEDIATE MEDICAL CARE IF: You develop chills, fever, or show signs of generalized illness that occurs prior to seeing your caregiver. Document Released: 02/09/2007 Document Revised: 05/04/2012 Document Reviewed: 01/12/2010 ExitCare? Patient Information ?2013 Gigi Hill. [facility] Urology Office/Clinic Noteon 01-04-2020 Urology Office/Clinic Note Chief Complaint f/u to cysto UD This patient is a 74-year-old female with a history of gross hematuria and urinary tract infection. She had a recent cystoscopic examination that showed no evidence of malignancy. She was treated by her primary care physician for another urinary tract infection. [facility] Staff Pt is here for f/u to [...] Urnls Dip Stick Auto w/o Microscopy POC 39684 3. Dysuria (R30.0: Dysuria) Mild burning w/ urination. I have reviewed the previous health record information and history for this pt. from Dr. Finley. Follow-up With When Contact Information Tushar Nunez MD, Jude Farias [address] [place] [address]- Additional Instructions: 1mos. w/ pVR Patient Education Urinary Retention, Acute, Female I, Kisha Stevens , personally scribed for Dr. Finley on [...] mg T (more content not included)... Normal [facility] Comment on above: Result Comment: Elec tronically Signed By: Tushar Nunez MD, Jude Farias\.br\Date and Time Signed: 01/04/20 12:26 EST\.br\Electronically Co-Signed By: Kisha Stevens MA\.br\Date and Time Co-Signed: 01/04/20 12:01 EST Operative Reporton 0 Operative Report [id number] :127 Normal [facility] Cult,Bloodon 10-18-2019 Cult,Blood Specimen Description .BLOOD Special Requests 3ML LT A.C. Culture NO GROWTH 6 DAYS Report Status FINAL 10/18/2019 [facility] Comment on above: Performed By: #### C DP, CP, LIP, TROPI, LIPRF, GLYHGB #### [employer] [address] [place] [id number] Pigment Pusher: Brandon Anaya MD Cult,Blood Specimen Description .BLOOD Special Requests back lt arm 3ml Culture NO GROWTH 6 DAYS Report Status FINAL 10/18/2019 [facility] Comment on above: Performed By: #### C DP, CP, LIP, TROPI, LIPRF, GLYHGB #### [employer] [address] [place] [id number] Pigment Pusher: Brandon Anaya MD Cult,Urineon 10-18-2019 Cult,Urine Specimen Description .CLEAN CATCH URINE Special Requests NOT REPORTED Culture STAPHYLOCOCCUS SPECIES, COAGULASE NEGATIVE >[id number] CFU/ML Report Status FINAL 10/17/2019 SUSCEPTIBILITY Organism [...] REPORTED Trimethoprim/Sulfa 20 SUSCEPTIBLE Vancomycin 1 SUSCEPTIBLE [facility] Comment on above: Performed By: #### C DP, CP, LIP, TROPI, LIPRF, GLYHGB #### [employer] [address] [place] [id number] Pigment Pusher: Brandon Anaya MD Basic Metab w/rfx MGon 10-15 (cont.) Normal [facility] Comment on above: Result Comment: Aver age GFR for 70 or more years old: 75 mL/min/1.73sq m Chronic Kidney Disease: <60 mL/min/1.73sq m Kidney failure: <15 mL/min/1.73sq m eGFR calculated using average adult body mass. Additional eGFR calculator available at: http://www.[employer]/multiple_crcl_2012.htm Performed By: #### C DP, CP, LIP, TROPI, LIPRF, GLYHGB #### [address] [address] Pigment Pusher: Brandon Anaya MD Anion gap [Moles/Vol] 13 mmol/L Normal 9-17 [facility] Comment on above: Performed By: #### C DP, CP, LIP, TROPI, LIPRF, GLYHGB #### [address] [address] Pigment Pusher: Brandon Anaya MD Calcium [Mass/Vol] 8.6 mg/dL Normal 8.6-10.4 [facility] Comment on above: Performed By: #### C DP, CP, LIP, TROPI, LIPRF, GLYHGB #### [address] [address] Pigment Pusher: Brandon Anaya MD Chloride [Moles/Vol] 97 mmol/L Low 98-107 [facility] Comment on above: Performed By: #### C DP, CP, LIP, TROPI, LIPRF, GLYHGB #### [facility] [facility] [address] [place] [address] Pigment Pusher: Brandon Anaya MD CO2 [Moles/Vol] 25 mmol/L Normal 20-31 [facility] Comment on above: Performed By: #### C DP, CP, LIP, TROPI, LIPRF, GLYHGB #### [address] [address] Pigment Pusher: Brandon Anaya MD Creatinine [Mass/Vol] 0.42 mg/dL Low 0.50-0.90 [facility] Comment on above: Performed By: #### C DP, CP, LIP, TROPI, LIPRF, GLYHGB #### [address] [address] Pigment Pusher: Brandon Anaya MD GFR, Amer >60 Normal >60 [facility] Comment on above: Performed By: #### C DP, CP, LIP, TROPI, LIPRF, GLYHGB #### [address] [address] Pigment Pusher: Brandon Anaya MD GFR,non Amer >60 Normal >60 [facility] Comment on above: Performed By: #### C DP, CP, LIP, TROPI, LIPRF, GLYHGB #### [address] [address] Pigment Pusher: Brandon Anaya MD Glucose [Mass/Vol] 87 mg/dL Normal 70-99 [facility] Comment on above: Performed By: #### C DP, CP, LIP, TROPI, LIPRF, GLYHGB #### [address] [address] Pigment Pusher: Brandon Anaya MD Potassium [Moles/Vol] 3.7 mmol/L Normal 3.7-5.3 [facility] Comment on above: Performed By: #### C DP, CP, LIP, TROPI, LIPRF, GLYHGB #### [address] [address] Pigment Pusher: Brandon Anaya MD Sodium [Moles/Vol] 135 mmol/L Normal 135-144 [facility] Comment on above: Performed By: #### C DP, CP, LIP, TROPI, LIPRF, GLYHGB #### [facility] [address] [place] [address] Pigment Pusher: Brandon Anaya MD Urea nitrogen [Mass/Vol] 14 mg/dL Normal - [facility] Comment on above: Performed By: #### C DP, CP, LIP, TROPI, LIPRF, GLYHGB #### [facility] [address] [place] [address] Pigment Pusher: Brandon Anaya MD BUN/CRE Ratio NOT REPORTED Normal 11-13 [facility] Comment on above: Performed By: #### C DP, CP, LIP, TROPI, LIPRF, GLYHGB #### [facility] [address] [place] [address] Pigment Pusher: Brandon Anaya MD Staging: NOT REPORTED Normal [facility] Comment on above: Performed By: #### C DP, CP, LIP, TROPI, LIPRF, GLYHGB #### [facility] [address] [place] [address] Pigment Pusher: Brandon Anaya MD Basic Metabolic Panel w/ Ref kervin to [facility] 10-16-2019 Anion gap [Moles/Vol] 13 mmol/L 9 - 17 mmol/L [place] Bun/Cre Ratio NOT REPORTED [place] Calcium [Mass/Vol] 8.6 mg/dL 8.6 - 10. 4 mg/dL [place] Chloride [Moles/Vol] 97 mmol/L Low 98 - 10 7 mmol/L [place] CO2 [Moles/Vol] 25 mmol/L 20 - 31 mmol/L [place] Creatinine [Mass/Vol] 0.42 mg/dL Low 0.5 - 0.9 mg/dL [place] GFR >60 >60 mL/min [place] GFR Non- >60 >60 mL/min [place] GFR/1.73 sq M predicted among non-blacks MDRD (S/P/Bld) [Vol rate/Area] [place] Comment on above: Average GFR for 70 o r more years old: 75 mL/min/1.73sq m Chronic Kidney Disease: <60 mL/min/1.73sq m Kidney failure: <15 mL/min/1.73sq m eGFR calculated using average adult body mass. Additional eGFR calculator available at: http://www.[employer]/multiple_crcl_2012.htm GFR/1.73 sq M predicted among non-blacks MDRD (S/P/Bld) [Vol rate/Area] NOT REPORTED [place] Glucose [Mass/Vol] 87 mg/dL 70 - 99 mg/dL [place] Interpretation and review of laboratory results Abnormal [place] Potassium [Moles/Vol] 3.7 mmol/L 3.7 - 5.3 mmol/L [place] Sodium [Moles/Vol] 135 mmol/L 135 - 144 mmol/L [place] Urea nitrogen [Mass/Vol] 14 mg/dL 8 - 23 mg/dL [place] CBC auto differentialon 09-25 Basophils (Bld) [#/Vol] 0.04 10*3/uL [place] Basophils/100 WBC (Bld) 0 % 0 - 2 % [place] Differential Type NOT REPORTED [place] Eosinophils (Bld) [#/Vol] 0.10 10*3/uL [place] Eosinophils/100 WBC (Bld) 1 % 1 - 4 % [place] Erythrocyte distribution width (RBC) [Ratio] 14.6 % High 11.8 - 14.4 % [place] Hematocrit (Bld) [Volume fraction] 40.2 % 36.3 - 47.1 % [place] Hemoglobin (Bld) [Mass/Vol] 12.6 g/dL 11.9 - 15.1 g/dL [place] Immature granulocytes (Bld) [#/Vol] 0.08 10*3/uL [place] Immature granulocytes (Bld) [#/Vol] 1 % High 0 [place] Interpretation and review of laboratory results Abnormal [place] Lymphocytes (Bld) [#/Vol] 3.05 10*3/uL [place] Lymphocytes/100 WBC (Bld) 32 % 24 - 43 % [place] MCH (RBC) [Entitic mass] 29.0 pg 25.2 - 33.5 pg [place] MCHC (RBC) [Mass/Vol] 31.3 g/dL 28.4 - 34.8 g/dL [place] MCV (RBC) [Entitic vol] 92.4 fL 82.6 - 102.9 fL [place] Monocytes (Bld) [#/Vol] 0.76 10*3/uL [place] Monocytes/100 WBC (Bld) 8 % 3 - 12 % [place] Platelet mean volume (Bld) [Entitic vol] 10.6 fL 8.1 - 13.5 fL [place] Platelets (Bld) [#/Vol] 216 10*3/uL [place] Platelets (Bld) [#/Vol] NOT REPORTED [place] RBC (Bld) [#/Vol] 4.35 10*6/uL 3.95 - 5.1 1 m/uL [place] RBC morphology finding Nom (Bld) ANISOCYTOSIS PRESENT [place] Segmented neutrophils/100 WBC (Bld) 58 % 36 - 65 % [place] Segs Absolute 5.61 [place] WBC (Bld) [#/Vol] 9.6 10*3/uL [place] WBC (Bld) [#/Vol] 0.0 10*3/uL 0.0 per 10 0 WBC [place] WBC Morphology NOT REPORTED [place] CBC with Diffon 10-16-2019 Abs. Basophil 0.04 k/uL Normal 0.00-0.20 [facility] Comment on above: Performed By: #### C DP, CP, LIP, TROPI, LIPRF, GLYHGB #### [address] [address] Pigment Pusher: Brandon Anaya MD Abs.Imm.Granulocyte 0.08 k/uL Normal 0.00-0.30 [facility] Comment on above: Performed By: #### C DP, CP, LIP, TROPI, LIPRF, GLYHGB #### [address] [address] Pigment Pusher: Brandon Anaya MD Abs.Neutrophil (Seg) 5.61 k/uL Normal 1.50-8.10 [facility] Comment on above: Performed By: #### C DP, CP, LIP, TROPI, LIPRF, GLYHGB #### [address] [address] Pigment Pusher: Brandon Anaya MD Basophils/100 WBC (Bld) 0 % Normal 0-2 [facility] Comment on above: Performed By: #### C DP, CP, LIP, TROPI, LIPRF, GLYHGB #### [address] [address] Pigment Pusher: Brandon Anaya MD Eosinophils (Bld) [#/Vol] 0.10 10*3/uL Normal 0.00-0.44 [facility] Comment on above: Performed By: #### C DP, CP, LIP, TROPI, LIPRF, GLYHGB #### [address] [address] Pigment Pusher: Brandon Anaya MD Eosinophils/100 WBC (Bld) 1 % Normal 1-4 [facility] Comment on above: Performed By: #### C DP, CP, LIP, TROPI, LIPRF, GLYHGB #### [address] [address] Pigment Pusher: Brandon Anaya MD Erythrocyte distribution width (RBC) [Ratio] 14.6 % High 11.8-14.4 [facility] Comment on above: Performed By: #### C DP, CP, LIP, TROPI, LIPRF, GLYHGB #### [facility] [address] [place] [address] Pigment Pusher: Brandon Anaya MD Hematocrit (Bld) [Volume fraction] 40.2 % Normal 36.3-47.1 [facility] Comment on above: Performed By: #### C DP, CP, LIP, TROPI, LIPRF, GLYHGB #### [place] [address] Pigment Pusher: Brandon Anaya MD Hemoglobin (Bld) [Mass/Vol] 12.6 g/dL Normal 11.9-15.1 [facility] Comment on above: Performed By: #### C DP, CP, LIP, TROPI, LIPRF, GLYHGB #### [facility] [address] [place] [address] Pigment Pusher: Brandon Anaya MD Immature granulocytes (Bld) [#/Vol] 1 % High 0 [facility] Comment on above: Performed By: #### C DP, CP, LIP, TROPI, LIPRF, GLYHGB #### [address] [address] Pigment Pusher: Brandon Anaya MD Lymphocytes (Bld) [#/Vol] 3.05 10*3/uL Normal 1.10-3.70 [facility] Comment on above: Performed By: #### C DP, CP, LIP, TROPI, LIPRF, GLYHGB #### [address] [address] Pigment Pusher: Brandon Anaya MD Lymphocytes/100 WBC (Bld) 32 % Normal 24-43 [facility] Comment on above: Performed By: #### C DP, CP, LIP, TROPI, LIPRF, GLYHGB #### [address] [address] Pigment Pusher: Brandon Anaya MD MCH (RBC) [Entitic mass] 29.0 pg Normal 25.2-33.5 [facility] Comment on above: Performed By: #### C DP, CP, LIP, TROPI, LIPRF, GLYHGB #### [address] [address] Pigment Pusher: Brandon Anaya MD MCHC (RBC) [Mass/Vol] 31.3 g/dL Normal 28.4-34.8 [facility] Comment on above: Performed By: #### C DP, CP, LIP, TROPI, LIPRF, GLYHGB #### [address] [address] Pigment Pusher: Brandon Anaya MD MCV (RBC) [Entitic vol] 92.4 fL Normal 82.6-102.9 [facility] Comment on above: Performed By: #### C DP, CP, LIP, TROPI, LIPRF, GLYHGB #### [address] [address] Pigment Pusher: Brandon Anaya MD Monocytes (Bld) [#/Vol] 0.76 10*3/uL Normal 0.10-1.20 [facility] Comment on above: Performed By: #### C DP, CP, LIP, TROPI, LIPRF, GLYHGB #### [address] [address] Pigment Pusher: Brandon Anaya MD Monocytes/100 WBC (Bld) 8 % Normal 3-12 [facility] Comment on above: Performed By: #### C DP, CP, LIP, TROPI, LIPRF, GLYHGB #### [address] [address] Pigment Pusher: Brandon Anaya MD Neutrophil (Seg) 58 % Normal 36-65 [facility] Comment on above: Performed By: #### C DP, CP, LIP, TROPI, LIPRF, GLYHGB #### [facility] [address] [place] [address] Pigment Pusher: Brandon Anaya MD NRBC Automated 0.0 per 100 WBC Normal 0.0 [facility] Comment on above: Performed By: #### C DP, CP, LIP, TROPI, LIPRF, GLYHGB #### [facility] [address] [place] [address] Pigment Pusher: Brandon Anaya MD Platelet mean volume (Bld) [Entitic vol] 10.6 fL Normal 8.1-13.5 [facility] Comment on above: Performed By: #### C DP, CP, LIP, TROPI, LIPRF, GLYHGB #### [facility] [address] [place] [address] Pigment Pusher: Brandon Anaya MD Platelets (Bld) [#/Vol] 216 10*3/uL Normal 138-453 [facility] Comment on above: Performed By: #### C DP, CP, LIP, TROPI, LIPRF, GLYHGB #### [facility] [address] [place] [address] Pigment Pusher: Brandon Anaya MD RBC (Bld) [#/Vol] 4.35 10*6/uL Normal 3.95-5.11 [facility] Comment on above: Performed By: #### C DP, CP, LIP, TROPI, LIPRF, GLYHGB #### [facility] [address] [place] [address] Pigment Pusher: Brandon Anaya MD RBC morphology finding Nom (Bld) ANISOCYTOSIS PRESENT Normal [facility] Comment on above: Performed By: #### C DP, CP, LIP, TROPI, LIPRF, GLYHGB #### [address] [address] Pigment Pusher: Brandon Anaya MD WBC (Bld) [#/Vol] 9.6 10*3/uL Normal 3.5-11.3 [facility] Comment on above: Performed By: #### C DP, CP, LIP, TROPI, LIPRF, GLYHGB #### [address] [address] Pigment Pusher: Brandon Anaya MD Auto Diff Performed NOT REPORTED Normal [facility] Comment on above: Performed By: #### C DP, CP, LIP, TROPI, LIPRF, GLYHGB #### [address] [address] Pigment Pusher: Brandon Anaya MD Platelets (Bld) [#/Vol] NOT REPORTED Normal [facility] Comment on above: Performed By: #### C DP, CP, LIP, TROPI, LIPRF, GLYHGB #### [address] [address] Pigment Pusher: Brandon Anaya MD WBC Morphology NOT REPORTED Normal [facility] Comment on above: Performed By: #### C DP, CP, LIP, TROPI, LIPRF, GLYHGB #### [address] [address] Pigment Pusher: Brandon Anaya MD MRI LUMBAR SPINE W [...] Tiffany Lindsay MD 10/15/19 Final result Normal [facility] POC Glucose Fingerstickon Glucose [Mass/Vol] 98 mg/dL 65 - 105 mg/dL [place] Glucose [Mass/Vol] 107 mg/dL High 65 - 105 mg/dL [place] Interpretation and review of laboratory results Abnormal [place] Glucose [Mass/Vol] 81 mg/dL 65 - 105 mg/dL [place] URINALYSIS WITH MICROSCOPICo n 10-16-2019 Amorphous, UA NOT REPORTED None [place] Bacteria, UA MODERATE Abnormal None [place] Bilirubin Urine Negative NEGATIVE [place] Casts UA 0 TO 2 HYALINE Refer ence range defined for non-centrifuged specimen. [place] Color, UA YELLOW YELLOW [place] Crystals, UA NOT REPORTED None /HPF [place] Epithelial Cells UA 0 TO 2 [place] Glucose, Ur Negative NEGATIVE [place] Interpretation and review of laboratory results Abnormal [place] Ketones Ql (U) SMALL Abnormal NEGATIVE [place] Leukocyte esterase Test strip Ql (U) Negative NEGATIVE [place] Mucus, UA NOT REPORTED None [place] Nitrite, Urine Negative NEGATIVE [place] Other Observations UA NOT REPORTED NOT REQ. M [place], [place] pH, UA 8.0 [place] Protein (U) [Mass/Vol] Negative NEGATIVE [place] RBC (U) [#/Vol] 2 TO 5 [place] Comment on above: Reference range defi nya for non-centrifuged specimen. Renal Epithelial, UA NOT REPORTED 0 /HPF [place] Specific [place], UA 1.006 [place] Trichomonas, UA NOT REPORTED None [place] Turbidity UA CLOUDY Abnormal CLEAR [place] Urine Hgb Negative NEGATIVE [place] Urobilinogen, Urine Normal Normal [place] WBC, UA 0 TO 2 [place] Yeast, UA NOT REPORTED None [place] - [place] Urinalysis w/ Microon 2019 ----- Normal [facility] Comment on above: Performed By: #### C DP, CP, LIP, TROPI, LIPRF, GLYHGB #### [employer] [address] [place] [address] Pigment Pusher: Brandon Anaya MD Acetoacetic Acid,Ur SMALL Abnormal NEG [facility] Comment on above: Performed By: #### C DP, CP, LIP, TROPI, LIPRF, GLYHGB #### [address] [address] Pigment Pusher: Brandon Anaya MD Bacteria LM.HPF (Urine sed) [#/Area] MODERATE Abnormal NONE [facility] Comment on above: Performed By: #### C DP, CP, LIP, TROPI, LIPRF, GLYHGB #### [address] [address] Pigment Pusher: Brandon Anaya MD Bilirubin, SemiQt,Ur Negative Normal NEG [facility] Comment on above: Performed By: #### C DP, CP, LIP, TROPI, LIPRF, GLYHGB #### [address] [address] Pigment Pusher: Brandon Anaya MD Casts LM.LPF (Urine sed) [#/Area] 0 TO 2 HYALINE Normal 0-8 [facility] Comment on above: Result Comment: Refe rence range defined for non-centrifuged specimen. Performed By: #### C DP, CP, LIP, TROPI, LIPRF, GLYHGB #### [address] [address] Pigment Pusher: Brandon Anaya MD Color (U) YELLOW Normal YEL [facility] Comment on above: Performed By: #### C DP, CP, LIP, TROPI, LIPRF, GLYHGB #### [address] [address] Pigment Pusher: Brandon Anaya MD Epithelial cells LM.HPF (Urine sed) [#/Area] 0 TO 2 Normal 0-5 [facility] Comment on above: Performed By: #### C DP, CP, LIP, TROPI, LIPRF, GLYHGB #### [facility] [address] [place] [address] Pigment Pusher: Brandon Anaya MD Glucose Ql (U) Negative Normal NEG [facility] Comment on above: Performed By: #### C DP, CP, LIP, TROPI, LIPRF, GLYHGB #### [address] [address] Pigment Pusher: Brandon Anaya MD Hemoglobin, Ur Negative Normal NEG [facility] Comment on above: Performed By: #### C DP, CP, LIP, TROPI, LIPRF, GLYHGB #### [facility] [address] [place] [address] Pigment Pusher: Brandon Anaya MD Leukocyte esterase Test strip Ql (U) Negative Normal NEG [facility] Comment on above: Performed By: #### C DP, CP, LIP, TROPI, LIPRF, GLYHGB #### [facility] [address] [place] [address] Pigment Pusher: Brandon Anaya MD Nitrite,Ur Negative Normal NEG [facility] Comment on above: Performed By: #### C DP, CP, LIP, TROPI, LIPRF, GLYHGB #### [address] [address] Pigment Pusher: Brandon Anaya MD pH (U) 8.0 [pH] Normal 5.0-8.0 [facility] Comment on above: Performed By: #### C DP, CP, LIP, TROPI, LIPRF, GLYHGB #### [facility] [address] [place] [address] Pigment Pusher: Brandon Anaya MD Protein Ql (U) Negative Normal NEG [facility] Comment on above: Performed By: #### C DP, CP, LIP, TROPI, LIPRF, GLYHGB #### [address] [address] Pigment Pusher: Brandon Anaya MD RBC (U) [#/Vol] 2 TO 5 Normal 0-4 [facility] Comment on above: Result Comment: Refe rence range defined for non-centrifuged specimen. Performed By: #### C DP, CP, LIP, TROPI, LIPRF, GLYHGB #### [address] [address] Pigment Pusher: Brandon Anaya MD Specific gravity (U) [Rel density] 1.006 Normal 1.005-1.030 [facility] Comment on above: Performed By: #### C DP, CP, LIP, TROPI, LIPRF, GLYHGB #### [address] [address] Pigment Pusher: Brandon Anaya MD Turbidity CLOUDY Abnormal CLEAR [facility] Comment on above: Performed By: #### C DP, CP, LIP, TROPI, LIPRF, GLYHGB #### [address] [address] Pigment Pusher: Brandon Anaya MD Urobilinogen,Ur Normal Normal NORM [facility] Comment on above: Performed By: #### C DP, CP, LIP, TROPI, LIPRF, GLYHGB #### [address] [address] Pigment Pusher: Brandon Anaya MD WBC (U) [#/Vol] 0 TO 2 Normal 0-5 [facility] Comment on above: Performed By: #### C DP, CP, LIP, TROPI, LIPRF, GLYHGB #### [address] [address] Pigment Pusher: Brandon Anaya MD Amorphous sediment LM Ql (Urine sed) NOT REPORTED Normal NONE [facility] Comment on above: Performed By: #### C DP, CP, LIP, TROPI, LIPRF, GLYHGB #### [address] [address] Pigment Pusher: Brandon Anaya MD Crystals LM Nom (Urine sed) NOT REPORTED Normal NONE [facility] Comment on above: Performed By: #### C DP, CP, LIP, TROPI, LIPRF, GLYHGB #### [address] [address] Pigment Pusher: Brandon Anaya MD Epithelial, Renal NOT REPORTED Normal 0 [facility] Comment on above: Performed By: #### C DP, CP, LIP, TROPI, LIPRF, GLYHGB #### [address] [address] Pigment Pusher: Brandon Anaya MD Mucus Strands NOT REPORTED Normal [facility] Comment on above: Performed By: #### C DP, CP, LIP, TROPI, LIPRF, GLYHGB #### [address] [address] Pigment Pusher: Brandon Anaya MD Other Observations NOT REPORTED Normal [facility] Comment on above: Performed By: #### C DP, CP, LIP, TROPI, LIPRF, GLYHGB #### [address] [address] Pigment Pusher: Brandon Anaya MD Trichomonas NOT REPORTED Normal [facility] Comment on above: Performed By: #### C DP, CP, LIP, TROPI, LIPRF, GLYHGB #### [address] [address] Pigment Pusher: Brandon Anaya MD Yeast LM Ql (Urine sed) NOT REPORTED Normal NONE [facility] Comment on above: Performed By: #### C DP, CP, LIP, TROPI, LIPRF, GLYHGB #### [address] [address] Pigment Pusher: Brandon Anaya MD Basic Metab w/rfx MGon 10-14 (cont.) Normal [facility] Comment on above: Result Comment: Aver age GFR for 70 or more years old: 75 mL/min/1.73sq m Chronic Kidney Disease: <60 mL/min/1.73sq m Kidney failure: <15 mL/min/1.73sq m eGFR calculated using average adult body mass. Additional eGFR calculator available at: http://www.[employer]/multiple_crcl_2012.htm Performed By: #### C DP, CP, LIP, TROPI, LIPRF, GLYHGB #### [address] [address] Pigment Pusher: Brandon Anaya MD Anion gap [Moles/Vol] 14 mmol/L Normal 9-17 [facility] Comment on above: Performed By: #### C DP, CP, LIP, TROPI, LIPRF, GLYHGB #### [address] [address] Pigment Pusher: Brandon Anaya MD Calcium [Mass/Vol] 8.8 mg/dL Normal 8.6-10.4 [facility] Comment on above: Performed By: #### C DP, CP, LIP, TROPI, LIPRF, GLYHGB #### [address] [address] Pigment Pusher: Brandon Anaya MD Chloride [Moles/Vol] 94 mmol/L Low 98-107 [facility] Comment on above: Performed By: #### C DP, CP, LIP, TROPI, LIPRF, GLYHGB #### [address] [address] Pigment Pusher: Brandon Anaya MD CO2 [Moles/Vol] 23 mmol/L Normal 20-31 [facility] Comment on above: Performed By: #### C DP, CP, LIP, TROPI, LIPRF, GLYHGB #### [facility] [address] [place] [address] Pigment Pusher: Brandon Anaya MD Creatinine [Mass/Vol] 0.36 mg/dL Low 0.50-0.90 [facility] Comment on above: Performed By: #### C DP, CP, LIP, TROPI, LIPRF, GLYHGB #### [facility] [address] [place] [address] Pigment Pusher: Brandon Anaya MD GFR, Amer >60 Normal >60 [facility] Comment on above: Performed By: #### C DP, CP, LIP, TROPI, LIPRF, GLYHGB #### [address] [address] Pigment Pusher: Brandon Anaya MD GFR,non Amer >60 Normal >60 [facility] Comment on above: Performed By: #### C DP, CP, LIP, TROPI, LIPRF, GLYHGB #### [address] [address] Pigment Pusher: Brandon Anaya MD Glucose [Mass/Vol] 89 mg/dL Normal 70-99 [facility] Comment on above: Performed By: #### C DP, CP, LIP, TROPI, LIPRF, GLYHGB #### [address] [address] Pigment Pusher: Brandon Anaya MD Potassium [Moles/Vol] 3.7 mmol/L Normal 3.7-5.3 [facility] Comment on above: Performed By: #### C DP, CP, LIP, TROPI, LIPRF, GLYHGB #### [facility] [address] [place] [address] Pigment Pusher: Brandon Anaya MD Sodium [Moles/Vol] 131 mmol/L Low 135-144 [facility] Comment on above: Performed By: #### C DP, CP, LIP, TROPI, LIPRF, GLYHGB #### [facility] [address] [place] [address] Pigment Pusher: Brandon Anaya MD Urea nitrogen [Mass/Vol] 16 mg/dL Normal 8- [facility] Comment on above: Performed By: #### C DP, CP, LIP, TROPI, LIPRF, GLYHGB #### [facility] [address] [place] [address] Pigment Pusher: Brandon Anaya MD BUN/CRE Ratio NOT REPORTED Normal 11-13 [facility] Comment on above: Performed By: #### C DP, CP, LIP, TROPI, LIPRF, GLYHGB #### [facility] [address] [place] [address] Pigment Pusher: Brandon Anaya MD Staging: NOT REPORTED Normal [facility] Comment on above: Performed By: #### C DP, CP, LIP, TROPI, LIPRF, GLYHGB #### [facility] [address] [place] [address] Pigment Pusher: Brandon Anaya MD Basic Metabolic Panel w/ Ref kervin to [facility] 10-15-2019 Anion gap [Moles/Vol] 14 mmol/L 9 - 17 mmol/L [place] Bun/Cre Ratio NOT REPORTED [place] Calcium [Mass/Vol] 8.8 mg/dL 8.6 - 10. 4 mg/dL [place] Chloride [Moles/Vol] 94 mmol/L Low 98 - 10 7 mmol/L [place] CO2 [Moles/Vol] 23 mmol/L 20 - 31 mmol/L [place] Creatinine [Mass/Vol] 0.36 mg/dL Low 0.5 - 0.9 mg/dL [place] GFR >60 >60 mL/min [place] GFR Non- >60 >60 mL/min [place] GFR/1.73 sq M predicted among non-blacks MDRD (S/P/Bld) [Vol rate/Area] [place] Comment on above: Average GFR for 70 o r more years old: 75 mL/min/1.73sq m Chronic Kidney Disease: <60 mL/min/1.73sq m Kidney failure: <15 mL/min/1.73sq m eGFR calculated using average adult body mass. Additional eGFR calculator available at: http://www.[employer]/multiple_crcl_2012.htm GFR/1.73 sq M predicted among non-blacks MDRD (S/P/Bld) [Vol rate/Area] NOT REPORTED [place] Glucose [Mass/Vol] 89 mg/dL 70 - 99 mg/dL [place] Interpretation and review of laboratory results Abnormal [place] Potassium [Moles/Vol] 3.7 mmol/L 3.7 - 5.3 mmol/L [place] Sodium [Moles/Vol] 131 mmol/L Low 135 - 144 mmol/L [place] Urea nitrogen [Mass/Vol] 16 mg/dL 8 - 23 mg/dL [place] CBC auto differentialon 09-25 Basophils (Bld) [#/Vol] 0.06 10*3/uL [place] Basophils/100 WBC (Bld) 1 % 0 - 2 % [place] Differential Type NOT REPORTED [place] Eosinophils (Bld) [#/Vol] 0.13 10*3/uL [place] Eosinophils/100 WBC (Bld) 1 % 1 - 4 % [place], [place] Erythrocyte distribution width (RBC) [Ratio] 14.6 % High 11.8 - 14.4 % [place] Hematocrit (Bld) [Volume fraction] 41.6 % 36.3 - 47.1 % [place] Hemoglobin (Bld) [Mass/Vol] 13.4 g/dL 11.9 - 15.1 g/dL [place] Immature granulocytes (Bld) [#/Vol] 1 % High 0 [place] Immature granulocytes (Bld) [#/Vol] 0.11 10*3/uL [place] Interpretation and review of laboratory results Abnormal [place] Lymphocytes (Bld) [#/Vol] 2.56 10*3/uL [place] Lymphocytes/100 WBC (Bld) 24 % 24 - 43 % [place] MCH (RBC) [Entitic mass] 29.3 pg 25.2 - 33.5 pg [place] MCHC (RBC) [Mass/Vol] 32.2 g/dL 28.4 - 34.8 g/dL [place] MCV (RBC) [Entitic vol] 90.8 fL 82.6 - 102.9 fL [place] Monocytes (Bld) [#/Vol] 0.78 10*3/uL [place] Monocytes/100 WBC (Bld) 7 % 3 - 12 % [place] Platelet mean volume (Bld) [Entitic vol] 10.6 fL 8.1 - 13.5 fL [place] Platelets (Bld) [#/Vol] NOT REPORTED [place] Platelets (Bld) [#/Vol] 241 10*3/uL [place] RBC (Bld) [#/Vol] 4.58 10*6/uL 3.95 - 5.1 1 m/uL [place] RBC morphology finding Nom (Bld) ANISOCYTOSIS PRESENT [place] Segmented neutrophils/100 WBC (Bld) 66 % High 36 - 65 % [place] Segs Absolute 7.00 [place] WBC (Bld) [#/Vol] 10.6 10*3/uL [place] WBC (Bld) [#/Vol] 0.0 10*3/uL 0.0 per 10 0 WBC [place] WBC Morphology NOT REPORTED [place] CBC with Diffon 10-15-2019 Abs. Basophil 0.06 k/uL Normal 0.00-0.20 [facility] Comment on above: Performed By: #### C DP, CP, LIP, TROPI, LIPRF, GLYHGB #### [address] [address] Pigment Pusher: Brandon Anaya MD Abs.Imm.Granulocyte 0.11 k/uL Normal 0.00-0.30 [facility] Comment on above: Performed By: #### C DP, CP, LIP, TROPI, LIPRF, GLYHGB #### [address] [address] Pigment Pusher: Brandon Anaya MD Abs.Neutrophil (Seg) 7.00 k/uL Normal 1.50-8.10 [facility] Comment on above: Performed By: #### C DP, CP, LIP, TROPI, LIPRF, GLYHGB #### [place] [address] Pigment Pusher: Brandon Anaya MD Basophils/100 WBC (Bld) 1 % Normal 0-2 [facility] Comment on above: Performed By: #### C DP, CP, LIP, TROPI, LIPRF, GLYHGB #### [address] [address] Pigment Pusher: Brandon Anaya MD Eosinophils (Bld) [#/Vol] 0.13 10*3/uL Normal 0.00-0.44 [facility] Comment on above: Performed By: #### C DP, CP, LIP, TROPI, LIPRF, GLYHGB #### [address] [address] Pigment Pusher: Brandon Anaya MD Eosinophils/100 WBC (Bld) 1 % Normal 1-4 [facility] Comment on above: Performed By: #### C DP, CP, LIP, TROPI, LIPRF, GLYHGB #### [address] [address] Pigment Pusher: Brandon Anaya MD Erythrocyte distribution width (RBC) [Ratio] 14.6 % High 11.8-14.4 [facility] Comment on above: Performed By: #### C DP, CP, LIP, TROPI, LIPRF, GLYHGB #### [address] [address] Pigment Pusher: Brandon Anaya MD Hematocrit (Bld) [Volume fraction] 41.6 % Normal 36.3-47.1 [facility] Comment on above: Performed By: #### C DP, CP, LIP, TROPI, LIPRF, GLYHGB #### [address] [address] Pigment Pusher: Brandon Anaya MD Hemoglobin (Bld) [Mass/Vol] 13.4 g/dL Normal 11.9-15.1 [facility] Comment on above: Performed By: #### C DP, CP, LIP, TROPI, LIPRF, GLYHGB #### [place] [address] Pigment Pusher: Brandon Anaya MD Immature granulocytes (Bld) [#/Vol] 1 % High 0 [facility] Comment on above: Performed By: #### C DP, CP, LIP, TROPI, LIPRF, GLYHGB #### [place] [address] Pigment Pusher: Brandon Anaya MD Lymphocytes (Bld) [#/Vol] 2.56 10*3/uL Normal 1.10-3.70 [facility] Comment on above: Performed By: #### C DP, CP, LIP, TROPI, LIPRF, GLYHGB #### [address] [address] Pigment Pusher: Brandon Anaya MD Lymphocytes/100 WBC (Bld) 24 % Normal 24-43 [facility] Comment on above: Performed By: #### C DP, CP, LIP, TROPI, LIPRF, GLYHGB #### [address] [address] Pigment Pusher: Brandon Anaya MD MCH (RBC) [Entitic mass] 29.3 pg Normal 25.2-33.5 [facility] Comment on above: Performed By: #### C DP, CP, LIP, TROPI, LIPRF, GLYHGB #### [place] [address] Pigment Pusher: Brandon Anaya MD MCHC (RBC) [Mass/Vol] 32.2 g/dL Normal 28.4-34.8 [facility] Comment on above: Performed By: #### C DP, CP, LIP, TROPI, LIPRF, GLYHGB #### [place] [address] Pigment Pusher: Brandon Anaya MD MCV (RBC) [Entitic vol] 90.8 fL Normal 82.6-102.9 [facility] Comment on above: Performed By: #### C DP, CP, LIP, TROPI, LIPRF, GLYHGB #### [address] [address] Pigment Pusher: Brandon Anaya MD Monocytes (Bld) [#/Vol] 0.78 10*3/uL Normal 0.10-1.20 [facility] Comment on above: Performed By: #### C DP, CP, LIP, TROPI, LIPRF, GLYHGB #### [place] [address] Pigment Pusher: Brandon Anaya MD Monocytes/100 WBC (Bld) 7 % Normal 3-12 [facility] Comment on above: Performed By: #### C DP, CP, LIP, TROPI, LIPRF, GLYHGB #### [address] [address] Pigment Pusher: Brandon Anaya MD Neutrophil (Seg) 66 % High 36-65 [facility] Comment on above: Performed By: #### C DP, CP, LIP, TROPI, LIPRF, GLYHGB #### [address] [address] Pigment Pusher: Brandon Anaya MD NRBC Automated 0.0 per 100 WBC Normal 0.0 [facility] Comment on above: Performed By: #### C DP, CP, LIP, TROPI, LIPRF, GLYHGB #### [address] [address] Pigment Pusher: Brandon nAaya MD Platelet mean volume (Bld) [Entitic vol] 10.6 fL Normal 8.1-13.5 [facility] Comment on above: Performed By: #### C DP, CP, LIP, TROPI, LIPRF, GLYHGB #### [address] [address] Pigment Pusher: Brandon Anaya MD Platelets (Bld) [#/Vol] 241 10*3/uL Normal 138-453 [facility] Comment on above: Performed By: #### C DP, CP, LIP, TROPI, LIPRF, GLYHGB #### [address] [address] Pigment Pusher: Brandon Anaya MD RBC (Bld) [#/Vol] 4.58 10*6/uL Normal 3.95-5.11 [facility] Comment on above: Performed By: #### C DP, CP, LIP, TROPI, LIPRF, GLYHGB #### [address] [address] Pigment Pusher: Brandon Anaya MD RBC morphology finding Nom (Bld) ANISOCYTOSIS PRESENT Normal [facility] Comment on above: Performed By: #### C DP, CP, LIP, TROPI, LIPRF, GLYHGB #### [facility] [address] [place] [address] Pigment Pusher: Brandon Anaya MD WBC (Bld) [#/Vol] 10.6 10*3/uL Normal 3.5-11.3 [facility] Comment on above: Performed By: #### C DP, CP, LIP, TROPI, LIPRF, GLYHGB #### [facility] [address] [place] [address] Pigment Pusher: Brandon Anaya MD Auto Diff Performed NOT REPORTED Normal [facility] Comment on above: Performed By: #### C DP, CP, LIP, TROPI, LIPRF, GLYHGB #### [address] [address] Pigment Pusher: Brandon Anaya MD Platelets (Bld) [#/Vol] NOT REPORTED Normal [facility] Comment on above: Performed By: #### C DP, CP, LIP, TROPI, LIPRF, GLYHGB #### [address] [address] Pigment Pusher: Brandon Anaya MD WBC Morphology NOT REPORTED Normal [facility] Comment on above: Performed By: #### C DP, CP, LIP, TROPI, LIPRF, GLYHGB #### [address] [address] Pigment Pusher: Brandon Anaya MD MRI LUMBAR SPINE W NIGEL Atkins 10-15-2019 No compression fract ure of the [...] 2013; 10(10):789-794; J Vasc Surg. 2018; 67:2-77 [place] EXAMINATION: MRI OF THE LUMBAR SPINE [...] are intact. The neural foramina are intact. [place], M[facility]pn Incoming Radiant Results From [employer] - 10/15/2019 11:11 PM EDT EXAMINATION: MRI [...] 2013; 10(10):789-794; J Vasc Surg. 2018; 67:2-77 [facility] [place] MYCOPLASMA PNEUMONIAE ANTIBO DY, IGMon 10-15-2019 Mycoplasma pneumo IgM 0.12 <0.91 [place] Comment on above: Reference Range: <=0.90 Negative 0.91-1.09 Equivocal >=1.10 Positive Mycoplasma Ab, IgMon 020 Mycoplasma Ab, IgM 0.12 Normal <0.91 [facility] Comment on above: Result Comment: Reference Range: <=0.90 Negative 0.91-1.09 Equivocal >=1.10 Positive Performed By: #### C DP, CP, LIP, TROPI, LIPRF, GLYHGB #### [facility] [address] [place] [address] Pigment Pusher: Brandon Anaya MD POC Glucose Fingerstickon Glucose [Mass/Vol] 100 mg/dL 65 - 105 mg/dL [place] Glucose [Mass/Vol] 99 mg/dL 65 - 105 mg/dL [place] Glucose [Mass/Vol] 91 mg/dL 65 - 105 mg/dL [place] Glucose [Mass/Vol] 95 mg/dL 65 - 105 mg/dL [place] RENINon 10-15-2019 Renin Activity 0.1 ng/mL/hr [place] Comment on above: (NOTE) INTERPRETIVE INFORMATION: Renin Activity Adult, Normal sodium diet: Supine ................. 0.2-1.6 ng/mL/hr Upright ................ 0.5-4.0 ng/mL/hr Children, Normal sodium diet, Supine: Grandin (1-7 days) ..... 2.0-35.0 ng/mL/hr Cord blood [...] angiotensinogen is decreased. See Compliance Statement D: [email or web address] Performed By: [facility] [address] [place] [id number] Medical Transcription Radiology: Nik Rosas MD, [place] Renin Comment NOT REPORTED [place] Renin Activityon 10-15-2019 Renin Activity 0.1 ng/mL/hr Normal [facility] Comment on above: Result Comment: (NOT E) INTERPRETIVE INFORMATION: Renin Activity Adult, Normal sodium diet: Supine ................. 0.2-1.6 ng/mL/hr Upright ................ 0.5-4.0 ng/mL/hr Children, Normal sodium diet, Supine: Grandin (1-7 days) ..... 2.0-35.0 ng/mL/hr Cord blood [...] angiotensinogen is decreased. See Compliance Statement D: [email or web address] Performed By: [facility] [address] [place] [address] Medical Transcription Radiology: Nik Rosas MD, MS Performed By: #### C DP, CP, LIP, TROPI, LIPRF, GLYHGB #### [facility] [address] [place] [address] Pigment Pusher: Brandon Anaya MD ALDOSTERONEon 10-14-2019 Aldosterone 5 ng/dL [place] Comment on above: (NOTE) INTERPRETIVE INFORMATION: [...] reference intervals for this test in the [facility] Test Directory ([place]). Performed By: [facility] [address] [place], [place] [id number] Medical Transcription Radiology: Nik Rosas MD, MS Aldosterone Comment NOT REPORTED [place] Aldosteroneon 10-14-2019 Aldosterone 5.0 ng/dL Normal [facility] Comment on above: Result Comment: [...] reference intervals for this test in the [facility] Test Directory ([place]). Performed By: [facility] [address] [place] [address] Medical Transcription Radiology: Nik Rosas MD, MS Performed By: #### C DP, CP, LIP, TROPI, LIPRF, GLYHGB #### [address] [place] [address] Pigment Pusher: Brandon Anaya MD Basic Metab w/rfx MGon 10-13 (cont.) Normal [facility] Comment on above: Result Comment: Aver age GFR for 70 or more years old: 75 mL/min/1.73sq m Chronic Kidney Disease: <60 mL/min/1.73sq m Kidney failure: <15 mL/min/1.73sq m eGFR calculated using average adult body mass. Additional eGFR calculator available at: http://www.Jovie.com/multiple_crcl_2011.htm Performed By: #### C DP, CP, LIP, TROPI, LIPRF, GLYHGB #### [facility] [address] [place] [address] Pigment Pusher: Brandon Anaya MD Anion gap [Moles/Vol] 13 mmol/L Normal 9-17 [facility] Comment on above: Performed By: #### C DP, CP, LIP, TROPI, LIPRF, GLYHGB #### [facility] [address] [place] [address] Pigment Pusher: Brandon Anaya MD Calcium [Mass/Vol] 8.5 mg/dL Low 8.6-10.4 [facility] Comment on above: Performed By: #### C DP, CP, LIP, TROPI, LIPRF, GLYHGB #### [address] [address] Pigment Pusher: Brandon Anaya MD Chloride [Moles/Vol] 91 mmol/L Low 98-107 [facility] Comment on above: Performed By: #### C DP, CP, LIP, TROPI, LIPRF, GLYHGB #### [facility] [address] [place] [address] Pigment Pusher: Brandon Anaya MD CO2 [Moles/Vol] 26 mmol/L Normal 20-31 [facility] Comment on above: Performed By: #### C DP, CP, LIP, TROPI, LIPRF, GLYHGB #### [facility] [address] [place] [address] Pigment Pusher: Brandon Anaya MD Creatinine [Mass/Vol] 0.48 mg/dL Low 0.50-0.90 [facility] Comment on above: Performed By: #### C DP, CP, LIP, TROPI, LIPRF, GLYHGB #### [address] [address] Pigment Pusher: Brandon Anaya MD GFR, Amer >60 Normal >60 [facility] Comment on above: Performed By: #### C DP, CP, LIP, TROPI, LIPRF, GLYHGB #### [facility] [address] [place] [address] Pigment Pusher: Brandon Anaya MD GFR,non Amer >60 Normal >60 [facility] Comment on above: Performed By: #### C DP, CP, LIP, TROPI, LIPRF, GLYHGB #### [facility] [address] [place] [address] Pigment Pusher: Brandon Anaya MD Glucose [Mass/Vol] 104 mg/dL High 70-99 [facility] Comment on above: Performed By: #### C DP, CP, LIP, TROPI, LIPRF, GLYHGB #### [address] [address] Pigment Pusher: Brandon Anaya MD Potassium [Moles/Vol] 3.7 mmol/L Normal 3.7-5.3 [facility] Comment on above: Performed By: #### C DP, CP, LIP, TROPI, LIPRF, GLYHGB #### [address] [address] Pigment Pusher: Brandon Anaya MD Sodium [Moles/Vol] 130 mmol/L Low 135-144 [facility] Comment on above: Performed By: #### C DP, CP, LIP, TROPI, LIPRF, GLYHGB #### [address] [address] Pigment Pusher: Brandon Anaya MD Urea nitrogen [Mass/Vol] 19 mg/dL Normal 8-23 [facility] Comment on above: Performed By: #### C DP, CP, LIP, TROPI, LIPRF, GLYHGB #### [facility] [address] [place] [address] Pigment Pusher: Brandon Anaya MD BUN/CRE Ratio NOT REPORTED Normal 11-13 [facility] Comment on above: Performed By: #### C DP, CP, LIP, TROPI, LIPRF, GLYHGB #### [facility] [address] [place] [address] Pigment Pusher: Brandon Anaya MD Staging: NOT REPORTED Normal [facility] Comment on above: Performed By: #### C DP, CP, LIP, TROPI, LIPRF, GLYHGB #### [facility] [address] [place] [address] Pigment Pusher: Brandon Anaya MD Basic Metabolic Panel w/ Ref kervin to [facility] 10-14-2019 Anion gap [Moles/Vol] 13 mmol/L 9 - 17 mmol/L [place] Bun/Cre Ratio NOT REPORTED [place] Calcium [Mass/Vol] 8.5 mg/dL Low 8.6 - 10. 4 mg/dL [place] Chloride [Moles/Vol] 91 mmol/L Low 98 - 10 7 mmol/L [place] CO2 [Moles/Vol] 26 mmol/L 20 - 31 mmol/L [place] Creatinine [Mass/Vol] 0.48 mg/dL Low 0.5 - 0.9 mg/dL [place] GFR >60 >60 mL/min [place] GFR Non- >60 >60 mL/min [place] GFR/1.73 sq M predicted among non-blacks MDRD (S/P/Bld) [Vol rate/Area] [place] Comment on above: Average GFR for 70 o r more years old: 75 mL/min/1.73sq m Chronic Kidney Disease: <60 mL/min/1.73sq m Kidney failure: <15 mL/min/1.73sq m eGFR calculated using average adult body mass. Additional eGFR calculator available at: http://www.Jovie.V[employer]ight/multiple_crcl_2012.htm GFR/1.73 sq M predicted among non-blacks MDRD (S/P/Bld) [Vol rate/Area] NOT REPORTED [place] Glucose [Mass/Vol] 104 mg/dL High 70 - 99 mg/dL [place] Interpretation and review of laboratory results Abnormal [place] Potassium [Moles/Vol] 3.7 mmol/L 3.7 - 5.3 mmol/L [place] Sodium [Moles/Vol] 130 mmol/L Low 135 - 144 mmol/L [place] Urea nitrogen [Mass/Vol] 19 mg/dL 8 - 23 mg/dL [place] CBC auto differentialon 09-25-2019 Atypical Lymphocytes 3 % [place] Atypical Lymphocytes Absolute 0.30 k/uL [place] Basophils (Bld) [#/Vol] 0.00 10*3/uL [place] Basophils/100 WBC (Bld) 0 % 0 - 2 % [place] Differential Type NOT REPORTED [place] Eosinophils (Bld) [#/Vol] 0.10 10*3/uL [place] Eosinophils/100 WBC (Bld) 1 % 1 - 4 % [place] Erythrocyte distribution width (RBC) [Ratio] 14.7 % High 11.8 - 14.4 % [place] Hematocrit (Bld) [Volume fraction] 39.5 % 36.3 - 47.1 % [place] Hemoglobin (Bld) [Mass/Vol] 12.9 g/dL 11.9 - 15.1 g/dL [place] Immature granulocytes (Bld) [#/Vol] 0.10 10*3/uL [place] Immature granulocytes (Bld) [#/Vol] 1 % High 0 [place] Interpretation and review of laboratory results Abnormal [place] Lymphocytes (Bld) [#/Vol] 2.80 10*3/uL [place] Lymphocytes/100 WBC (Bld) 28 % 24 - 44 % [place] MCH (RBC) [Entitic mass] 29.5 pg 25.2 - 33.5 pg [place] MCHC (RBC) [Mass/Vol] 32.7 g/dL 28.4 - 34.8 g/dL [place] MCV (RBC) [Entitic vol] 90.2 fL 82.6 - 102.9 fL [place] Monocytes (Bld) [#/Vol] 0.50 10*3/uL [place] Monocytes/100 WBC (Bld) 5 % 1 - 7 % [place] Morphology Alfredo (Bld) [Interp] ANISOCYTOSIS PRESENT [place] Platelet mean volume (Bld) [Entitic vol] 10.1 fL 8.1 - 13.5 fL [place] Platelets (Bld) [#/Vol] 190 10*3/uL [place] Platelets (Bld) [#/Vol] NOT REPORTED [place] RBC (Bld) [#/Vol] 4.38 10*6/uL 3.95 - 5.1 1 m/uL [place] RBC morphology finding Nom (Bld) NOT REPORTED [place] Segmented neutrophils/100 WBC (Bld) 62 % 36 - 66 % [place] Segs Absolute 6.20 [place] WBC (Bld) [#/Vol] 10.0 10*3/uL [place] WBC (Bld) [#/Vol] 0.0 10*3/uL 0.0 per 10 0 WBC [place] WBC Morphology NOT REPORTED [place] CBC with Diffon 10-14-2019 Abs. Atypical Lymphs 0.30 k/uL [facility] Comment on above: Performed By: #### C DP, CP, LIP, TROPI, LIPRF, GLYHGB #### [facility] [address] [place] [address] Pigment Pusher: Brandon Anaya MD Abs. Basophil 0.00 k/uL Normal 0.0-0.2 [facility] Comment on above: Performed By: #### C DP, CP, LIP, TROPI, LIPRF, GLYHGB #### [address] [address] Pigment Pusher: Brandon Anaya MD Abs.Imm.Granulocyte 0.10 k/uL Normal 0.00-0.30 [facility] Comment on above: Performed By: #### C DP, CP, LIP, TROPI, LIPRF, GLYHGB #### [place] [address] Pigment Pusher: Brandon Anaya MD Abs.Neutrophil (Seg) 6.20 k/uL Normal 1.8-7.7 [facility] Comment on above: Performed By: #### C DP, CP, LIP, TROPI, LIPRF, GLYHGB #### [place] [address] Pigment Pusher: Brandon Anaya MD Atypical Lymphs 3 % Normal [facility] Comment on above: Performed By: #### C DP, CP, LIP, TROPI, LIPRF, GLYHGB #### [place] [address] Pigment Pusher: Brandon Anaya MD Basophils/100 WBC (Bld) 0 % Normal 0-2 [facility] Comment on above: Performed By: #### C DP, CP, LIP, TROPI, LIPRF, GLYHGB #### [place] [address] Pigment Pusher: Brandon Anaya MD Eosinophils (Bld) [#/Vol] 0.10 10*3/uL Normal 0.0-0.4 [facility] Comment on above: Performed By: #### C DP, CP, LIP, TROPI, LIPRF, GLYHGB #### [address] [address] Pigment Pusher: Brandon Anaya MD Eosinophils/100 WBC (Bld) 1 % Normal 1-4 [facility] Comment on above: Performed By: #### C DP, CP, LIP, TROPI, LIPRF, GLYHGB #### [facility] [address] [place] [address] Pigment Pusher: Brandon Anaya MD Immature granulocytes (Bld) [#/Vol] 1 % High 0 [facility] Comment on above: Performed By: #### C DP, CP, LIP, TROPI, LIPRF, GLYHGB #### [facility] [address] [place] [address] Pigment Pusher: Brandon Anaya MD Lymphocytes (Bld) [#/Vol] 2.80 10*3/uL Normal 1.0-4.8 [facility] Comment on above: Performed By: #### C DP, CP, LIP, TROPI, LIPRF, GLYHGB #### [facility] [address] [place] [address] Pigment Pusher: Brandon Anaya MD Lymphocytes/100 WBC (Bld) 28 % Normal 24-44 [facility] Comment on above: Performed By: #### C DP, CP, LIP, TROPI, LIPRF, GLYHGB #### [facility] [address] [place] [address] Pigment Pusher: Brandon Anaya MD Monocytes (Bld) [#/Vol] 0.50 10*3/uL Normal 0.1-0.8 [facility] Comment on above: Performed By: #### C DP, CP, LIP, TROPI, LIPRF, GLYHGB #### [facility] [address] [place] [address] Pigment Pusher: Brandon Anaya MD Monocytes/100 WBC (Bld) 5 % Normal 1-7 [facility] Comment on above: Performed By: #### C DP, CP, LIP, TROPI, LIPRF, GLYHGB #### [facility] [address] [place] [address] Pigment Pusher: Brandon Anaya MD Morphology Alfredo (Bld) [Interp] ANISOCYTOSIS PRESENT Normal [facility] Comment on above: Performed By: #### C DP, CP, LIP, TROPI, LIPRF, GLYHGB #### [address] [address] Pigment Pusher: Brandon Anaya MD Neutrophil (Seg) 62 % Normal 36-66 [facility] Comment on above: Performed By: #### C DP, CP, LIP, TROPI, LIPRF, GLYHGB #### [address] [address] Pigment Pusher: Brandon Anaya MD Erythrocyte distribution width (RBC) [Ratio] 14.7 % High 11.8-14.4 [facility] Comment on above: Performed By: #### C DP, CP, LIP, TROPI, LIPRF, GLYHGB #### [address] [address] Pigment Pusher: Brandon Anaya MD Hematocrit (Bld) [Volume fraction] 39.5 % Normal 36.3-47.1 [facility] Comment on above: Performed By: #### C DP, CP, LIP, TROPI, LIPRF, GLYHGB #### [facility] [address] [place] [address] Pigment Pusher: Brandon Anaya MD Hemoglobin (Bld) [Mass/Vol] 12.9 g/dL Normal 11.9-15.1 [facility] Comment on above: Performed By: #### C DP, CP, LIP, TROPI, LIPRF, GLYHGB #### [address] [address] Pigment Pusher: Brandon Anaya MD MCH (RBC) [Entitic mass] 29.5 pg Normal 25.2-33.5 [facility] Comment on above: Performed By: #### C DP, CP, LIP, TROPI, LIPRF, GLYHGB #### [place] [address] Pigment Pusher: Brandon Anaya MD MCHC (RBC) [Mass/Vol] 32.7 g/dL Normal 28.4-34.8 [facility] Comment on above: Performed By: #### C DP, CP, LIP, TROPI, LIPRF, GLYHGB #### [place] [address] Pigment Pusher: Brandon Anaya MD MCV (RBC) [Entitic vol] 90.2 fL Normal 82.6-102.9 [facility] Comment on above: Performed By: #### C DP, CP, LIP, TROPI, LIPRF, GLYHGB #### [place] [address] Pigment Pusher: Brandon Anaya MD NRBC Automated 0.0 per 100 WBC Normal 0.0 [facility] Comment on above: Performed By: #### C DP, CP, LIP, TROPI, LIPRF, GLYHGB #### [place] [address] Pigment Pusher: Brandon Anaya MD Platelet mean volume (Bld) [Entitic vol] 10.1 fL Normal 8.1-13.5 [facility] Comment on above: Performed By: #### C DP, CP, LIP, TROPI, LIPRF, GLYHGB #### [place] [address] Pigment Pusher: Brnadon Anaya MD Platelets (Bld) [#/Vol] 190 10*3/uL Normal 138-453 [facility] Comment on above: Performed By: #### C DP, CP, LIP, TROPI, LIPRF, GLYHGB #### [address] [address] Pigment Pusher: Brandon Anaya MD RBC (Bld) [#/Vol] 4.38 10*6/uL Normal 3.95-5.11 [facility] Comment on above: Performed By: #### C DP, CP, LIP, TROPI, LIPRF, GLYHGB #### [address] [address] Pigment Pusher: Brandon Anaya MD WBC (Bld) [#/Vol] 10.0 10*3/uL Normal 3.5-11.3 [facility] Comment on above: Performed By: #### C DP, CP, LIP, TROPI, LIPRF, GLYHGB #### [address] [address] Pigment Pusher: Brandon Anaya MD Auto Diff Performed NOT REPORTED Normal [facility] Comment on above: Performed By: #### C DP, CP, LIP, TROPI, LIPRF, GLYHGB #### [address] [address] Pigment Pusher: Brandon Anaya MD Platelets (Bld) [#/Vol] NOT REPORTED Normal [facility] Comment on above: Performed By: #### C DP, CP, LIP, TROPI, LIPRF, GLYHGB #### [address] [address] Pigment Pusher: Brandon Anaya MD RBC morphology finding Nom (Bld) NOT REPORTED Normal [facility] Comment on above: Performed By: #### C DP, CP, LIP, TROPI, LIPRF, GLYHGB #### [address] [address] Pigment Pusher: Brandon Anaya MD WBC Morphology NOT REPORTED Normal [facility] Comment on above: Performed By: #### C DP, CP, LIP, TROPI, LIPRF, GLYHGB #### [facility] [employer] [address] [place] [address] Pigment Pusher: Brandon Anaya MD METANEPHRINES PLASMA FREEon 10-14-2019 Metaneph/Plasma Interp See Note [place] Comment on above: (NOTE) INTERPRETIVE INFORMATION: [...] should be considered. See Compliance Statement B: Freezing Point/ Performed By: [facility] [address] [place] [id number] Medical Transcription Radiology: Nik Rosas MD, [place] Metanephrine 0.14 nmol/L 0 - 0.49 nmol/L [place], [place] Normetanephrine 0.73 nmol/L 0 - 0.89 nmol/L [place], [place] Metanephrine, Plasmaon 10-13 Metaneph Interp See Note Normal [facility] Comment on above: Result Comment: [...] should be considered. See Compliance Statement B: [employer]ight/CS Performed By: [facility] [address] [place] [address] Medical Transcription Radiology: Nik Rosas MD, [place] Performed By: #### C DP, CP, LIP, TROPI, LIPRF, GLYHGB #### [facility] [employer] [address] [place] [address] Pigment Pusher: Brandon Anaya MD Metanephrine 0.14 nmol/L Normal 0.00-0.49 [facility] Comment on above: Performed By: #### C DP, CP, LIP, TROPI, LIPRF, GLYHGB #### [facility] [employer] [address] [place] [address] Pigment Pusher: Brandon Anaya MD Normetanephrine 0.73 nmol/L Normal 0.00-0.89 [facility] Comment on above: Performed By: #### C DP, CP, LIP, TROPI, LIPRF, GLYHGB #### [facility] [address] [place] [address] Pigment Pusher: Brandon Anaya MD POC Glucose Fingerstickon Glucose [Mass/Vol] 86 mg/dL 65 - 105 mg/dL [place], [place] Glucose [Mass/Vol] 105 mg/dL 65 - 105 mg/dL [place] Glucose [Mass/Vol] 159 mg/dL High 65 - 105 mg/dL [place] Interpretation and review of laboratory results Abnormal [place] Glucose [Mass/Vol] 113 mg/dL High 65 - 105 mg/dL [place] Interpretation and review of laboratory results Abnormal [place] T. pallidum Abon 10-14-2019 T. pallidum, IgG NONREACTIVE NONREACTIVE [place] Comment on above: T. pallidum antibodies are not detected. There is no serological evidence of infection with T. pallidum (early primary syphilis cannot be excluded). Retest in 2-4 weeks if syphilis is clinically suspect. T.pallidum Ab Screenon 10-13 T.pallidum Ab Screen NONREACTIVE Normal NR [facility] Comment on above: Result Comment: T. pallidum antibodies are not detected. There is no serological evidence of infection with T. pallidum (early primary syphilis cannot be excluded). Retest in 2-4 weeks if syphilis is clinically suspect. Performed By: #### C DP, CP, LIP, TROPI, LIPRF, GLYHGB #### [employer] [facility] [place], [place] [phone] Pigment Pusher: Brandon Anaya MD AMMONIAon 10-13-2019 Ammonia (P) [Mass/Vol] 28 umol/L 11 - 51 umol/L [place] Ammoniaon 10-13-2019 Ammonia (P) [Mass/Vol] 28 umol/L Normal 11-51 [facility] Comment on above: Performed By: #### C DP, CP, LIP, TROPI, LIPRF, GLYHGB #### [employer] [address] [place] [address] [phone] Pigment Pusher: Brandon Anaya MD BLOOD GAS, VENOUSon 10-13-19 20 Andrés Test NOT REPORTED [place], [place] aPTT Coag (Bld) [Time] 37.0 s [place] Carboxyhemoglobin 1.3 % 0 - 5 % [place] Comment on above: Reference Range: Non-Smokers 0-2% Average Smoker 2-4% Heavy Smoker <10% FIO2 ROOM AIR [facility], [place] HCO3, Venous 28.4 mmol/L 24 - 30 mmol/L [place] Interpretation and review of laboratory results Abnormal [place] Methemoglobin NOT REPORTED 0 - 1.5 % [facility], [place] Mode NOT REPORTED [facility] Negative Base Excess, Noah NOT REPORTED 0 - 2 mmol/L [facility] NOTIFICATION NOT REPORTED [facility] NOTIFICATION TIME NOT REPORTED [place], [place] O2 Device/Flow/% NOT REPORTED [place] Oxygen saturation in Blood 78.1 % 60 - 85 % [facility] [employer] Oxyhemoglobin NOT REPORTED 95 - 98 % [facility] [place], [place] pCO2, Noah 42.6 [facility] pCO2, Noah, Temp Adj NOT REPORTED [facility] Peep/Cpap NOT REPORTED [facility] [place] pH, Noah 7.439 High [facility] [place] pH, Noah, Temp Adj NOT REPORTED [facility] [place] pO2, Noah 41.1 [facility] [place] pO2, Noah, Temp Adj NOT REPORTED [facility] [employer] Positive Base Excess, Noah 4.2 mmol/L High 0 - 2 mmol/L [facility] PSV NOT REPORTED [facility] Pt. Position NOT REPORTED [facility] [employer] Sample Site NOT REPORTED [facility] [employer] Set Rate NOT REPORTED [facility] Text for Respiratory NOT REPORTED [facility] [employer] Total Hb NOT REPORTED 12 - 16 g/dl [facility], [place] Total Rate NOT REPORTED [facility] [employer] VT NOT REPORTED [facility] [employer] Basic Metab w/rfx MGon 10-12 Potassium [Moles/Vol] 3.4 mmol/L Low 3.7-5.3 [facility] Comment on above: Performed By: #### C DP, CP, LIP, TROPI, LIPRF, GLYHGB #### [employer] [address], [place] [phone] Pigment Pusher: Brandon Anaya MD (cont.) [facility] Comment on above: Result Comment: Aver age GFR for 70 or more years old: 75 mL/min/1.73sq m Chronic Kidney Disease: <60 mL/min/1.73sq m Kidney failure: <15 mL/min/1.73sq m eGFR calculated using average adult body mass. Additional eGFR calculator available at: http://www.Jovie.Vital Insight/multiple_crcl_2012.htm Performed By: #### C DP, CP, LIP, TROPI, LIPRF, GLYHGB #### [employer] [address] [place] [address] Pigment Pusher: Brandon Anaya MD Anion gap [Moles/Vol] 16 mmol/L Normal 9-17 [facility] Comment on above: Performed By: #### C DP, CP, LIP, TROPI, LIPRF, GLYHGB #### [address] [address] Pigment Pusher: Brandon Anaya MD Calcium [Mass/Vol] 9.0 mg/dL Normal 8.6-10.4 [facility] Comment on above: Performed By: #### C DP, CP, LIP, TROPI, LIPRF, GLYHGB #### [place] [address] Pigment Pusher: Brandon Anaya MD Chloride [Moles/Vol] 90 mmol/L Low 98-107 [facility] Comment on above: Performed By: #### C DP, CP, LIP, TROPI, LIPRF, GLYHGB #### [address] [address] Pigment Pusher: Brandon Anaya MD CO2 [Moles/Vol] 25 mmol/L Normal 20-31 [facility] Comment on above: Performed By: #### C DP, CP, LIP, TROPI, LIPRF, GLYHGB #### [place] [address] Pigment Pusher: Brandon Anaya MD Creatinine [Mass/Vol] 0.47 mg/dL Low 0.50-0.90 [facility] Comment on above: Performed By: #### C DP, CP, LIP, TROPI, LIPRF, GLYHGB #### [address] [address] Pigment Pusher: Brandon Anaya MD GFR, Amer >60 Normal >60 [facility] Comment on above: Performed By: #### C DP, CP, LIP, TROPI, LIPRF, GLYHGB #### [address] [address] Pigment Pusher: Brandon Anaya MD GFR,non Amer >60 Normal >60 [facility] Comment on above: Performed By: #### C DP, CP, LIP, TROPI, LIPRF, GLYHGB #### [address] [address] Pigment Pusher: Brandon Anaya MD Glucose [Mass/Vol] 113 mg/dL High 70-99 [facility] Comment on above: Performed By: #### C DP, CP, LIP, TROPI, LIPRF, GLYHGB #### [address] [address] Pigment Pusher: Brandon Anaya MD Sodium [Moles/Vol] 131 mmol/L Low 135-144 [facility] Comment on above: Performed By: #### C DP, CP, LIP, TROPI, LIPRF, GLYHGB #### [address] [address] Pigment Pusher: Brandon Anaya MD Urea nitrogen [Mass/Vol] 16 mg/dL Normal 8- [facility] Comment on above: Performed By: #### C DP, CP, LIP, TROPI, LIPRF, GLYHGB #### [address] [address] Pigment Pusher: Brandon Anaya MD BUN/CRE Ratio NOT REPORTED Normal 9-20 [facility] Comment on above: Performed By: #### C DP, CP, LIP, TROPI, LIPRF, GLYHGB #### [address] [address] Pigment Pusher: Brandon Anaya MD Staging: NOT REPORTED Normal [facility] Comment on above: Performed By: #### C DP, CP, LIP, TROPI, LIPRF, GLYHGB #### [facility] [employer] [address] [place] [address] Pigment Pusher: Brandon Anaya MD Basic Metabolic Panel w/ Ref ekrvin to MGon 10-13-2019 Anion gap [Moles/Vol] 16 mmol/L 9 - 17 mmol/L [place] Bun/Cre Ratio NOT REPORTED [place] Calcium [Mass/Vol] 9.0 mg/dL 8.6 - 10. 4 mg/dL [place] Chloride [Moles/Vol] 90 mmol/L Low 98 - 10 7 mmol/L [place] CO2 [Moles/Vol] 25 mmol/L 20 - 31 mmol/L [place] Creatinine [Mass/Vol] 0.47 mg/dL Low 0.5 - 0.9 mg/dL [place] GFR >60 >60 mL/min [place] GFR Non- >60 >60 mL/min [place] GFR/1.73 sq M predicted among non-blacks MDRD (S/P/Bld) [Vol rate/Area] NOT REPORTED [place] GFR/1.73 sq M predicted among non-blacks MDRD (S/P/Bld) [Vol rate/Area] [place] Comment on above: Average GFR for 70 o r more years old: 75 mL/min/1.73sq m Chronic Kidney Disease: <60 mL/min/1.73sq m Kidney failure: <15 mL/min/1.73sq m eGFR calculated using average adult body mass. Additional eGFR calculator available at: http://www.Jovie.Vital Insight/multiple_crcl_2012.htm Glucose [Mass/Vol] 113 mg/dL High 70 - 99 mg/dL [place] Interpretation and review of laboratory results Abnormal [place] Potassium [Moles/Vol] 3.4 mmol/L Low 3.7 - 5.3 mmol/L [place] Sodium [Moles/Vol] 131 mmol/L Low 135 - 144 mmol/L [place] Urea nitrogen [Mass/Vol] 16 mg/dL 8 - 23 mg/dL [place] CBC auto differentialon 09-24 Basophils (Bld) [#/Vol] 0.07 10*3/uL [place] Basophils/100 WBC (Bld) 1 % 0 - 2 % [place] Differential Type NOT REPORTED [place] Eosinophils (Bld) [#/Vol] 10*3/uL [place] Eosinophils/100 WBC (Bld) 0 % Low 1 - 4 % [place] Erythrocyte distribution width (RBC) [Ratio] 15.0 % High 11.8 - 14.4 % [place] Hematocrit (Bld) [Volume fraction] 45.5 % 36.3 - 47.1 % [place] Hemoglobin (Bld) [Mass/Vol] 14.5 g/dL 11.9 - 15.1 g/dL [place] Immature granulocytes (Bld) [#/Vol] 0.14 10*3/uL [place] Immature granulocytes (Bld) [#/Vol] 1 % High 0 [place] Interpretation and review of laboratory results Abnormal [place] Lymphocytes (Bld) [#/Vol] 2.84 10*3/uL [place] Lymphocytes/100 WBC (Bld) 23 % Low 24 - 43 % [place] MCH (RBC) [Entitic mass] 29.8 pg 25.2 - 33.5 pg [place] MCHC (RBC) [Mass/Vol] 31.9 g/dL 28.4 - 34.8 g/dL [place] MCV (RBC) [Entitic vol] 93.4 fL 82.6 - 102.9 fL [place] Monocytes (Bld) [#/Vol] 1.22 10*3/uL High [place] Monocytes/100 WBC (Bld) 10 % 3 - 12 % [place] Platelet mean volume (Bld) [Entitic vol] 10.5 fL 8.1 - 13.5 fL [place] Platelets (Bld) [#/Vol] NOT REPORTED [place] Platelets (Bld) [#/Vol] 210 10*3/uL [place] RBC (Bld) [#/Vol] 4.87 10*6/uL 3.95 - 5.1 1 m/uL [place] RBC morphology finding Nom (Bld) ANISOCYTOSIS PRESENT [place] Segmented neutrophils/100 WBC (Bld) 65 % 36 - 65 % [place] Segs Absolute 8.01 [place] WBC (Bld) [#/Vol] 12.3 10*3/uL High [place] WBC (Bld) [#/Vol] 0.0 10*3/uL 0.0 per 10 0 WBC [place] WBC Morphology NOT REPORTED [place] CBC with Diffon 10-13-2019 Abs. Basophil 0.07 k/uL Normal 0.00-0.20 [facility] Comment on above: Performed By: #### C DP, CP, LIP, TROPI, LIPRF, GLYHGB #### [facility] [employer] [address] [place] [address] Pigment Pusher: Brandon Anaya MD Abs.Imm.Granulocyte 0.14 k/uL Normal 0.00-0.30 [facility] Comment on above: Performed By: #### C DP, CP, LIP, TROPI, LIPRF, GLYHGB #### [facility] [employer] [address] [place] [address] Pigment Pusher: Brandon Anaya MD Abs.Neutrophil (Seg) 8.01 k/uL Normal 1.50-8.10 [facility] Comment on above: Performed By: #### C DP, CP, LIP, TROPI, LIPRF, GLYHGB #### [facility] [employer] [address] [place] [address] Pigment Pusher: Brandon Anaya MD Basophils/100 WBC (Bld) 1 % Normal 0-2 [facility] Comment on above: Performed By: #### C DP, CP, LIP, TROPI, LIPRF, GLYHGB #### [address] [address] Pigment Pusher: Brandon Anaya MD Eosinophils (Bld) [#/Vol] 10*3/uL Normal 0.00-0.44 [facility] Comment on above: Performed By: #### C DP, CP, LIP, TROPI, LIPRF, GLYHGB #### [address] [address] Pigment Pusher: Brandon Anaya MD Eosinophils/100 WBC (Bld) 0 % Low 1-4 [facility] Comment on above: Performed By: #### C DP, CP, LIP, TROPI, LIPRF, GLYHGB #### [address] [address] Pigment Pusher: Brandon Anaya MD Erythrocyte distribution width (RBC) [Ratio] 15.0 % High 11.8-14.4 [facility] Comment on above: Performed By: #### C DP, CP, LIP, TROPI, LIPRF, GLYHGB #### [address] [address] Pigment Pusher: Brandon Anaya MD Hematocrit (Bld) [Volume fraction] 45.5 % Normal 36.3-47.1 [facility] Comment on above: Performed By: #### C DP, CP, LIP, TROPI, LIPRF, GLYHGB #### [facility] [employer] [address] [place] [address] Pigment Pusher: Brandon Anaya MD Hemoglobin (Bld) [Mass/Vol] 14.5 g/dL Normal 11.9-15.1 [facility] Comment on above: Performed By: #### C DP, CP, LIP, TROPI, LIPRF, GLYHGB #### [facility] [employer] [address] [place] [phone] Pigment Pusher: Brandon Anaya MD Immature granulocytes (Bld) [#/Vol] 1 % High 0 [facility] Comment on above: Performed By: #### C DP, CP, LIP, TROPI, LIPRF, GLYHGB #### [address] [phone] Pigment Pusher: Brandon Anaya MD Lymphocytes (Bld) [#/Vol] 2.84 10*3/uL Normal 1.10-3.70 [facility] Comment on above: Performed By: #### C DP, CP, LIP, TROPI, LIPRF, GLYHGB #### [address] [address] Pigment Pusher: Brandon Anaya MD Lymphocytes/100 WBC (Bld) 23 % Low 24-43 [facility] Comment on above: Performed By: #### C DP, CP, LIP, TROPI, LIPRF, GLYHGB #### [address] [phone] Pigment Pusher: Brandon Anaya MD MCH (RBC) [Entitic mass] 29.8 pg Normal 25.2-33.5 [facility] Comment on above: Performed By: #### C DP, CP, LIP, TROPI, LIPRF, GLYHGB #### [address] [address] Pigment Pusher: Brandon Anaya MD MCHC (RBC) [Mass/Vol] 31.9 g/dL Normal 28.4-34.8 [facility] Comment on above: Performed By: #### C DP, CP, LIP, TROPI, LIPRF, GLYHGB #### [address] [address] Pigment Pusher: Brandon Anaya MD MCV (RBC) [Entitic vol] 93.4 fL Normal 82.6-102.9 [facility] Comment on above: Performed By: #### C DP, CP, LIP, TROPI, LIPRF, GLYHGB #### [address] [address] Pigment Pusher: Brandon Anaya MD Monocytes (Bld) [#/Vol] 1.22 10*3/uL High 0.10-1.20 [facility] Comment on above: Performed By: #### C DP, CP, LIP, TROPI, LIPRF, GLYHGB #### [address] [address] Pigment Pusher: Brandon Anaya MD Monocytes/100 WBC (Bld) 10 % Normal 3-12 [facility] Comment on above: Performed By: #### C DP, CP, LIP, TROPI, LIPRF, GLYHGB #### [address] [address] Pigment Pusher: Brandon Anaya MD Neutrophil (Seg) 65 % Normal 36-65 [facility] Comment on above: Performed By: #### C DP, CP, LIP, TROPI, LIPRF, GLYHGB #### [address] [address] Pigment Pusher: Brandon Anaya MD NRBC Automated 0.0 per 100 WBC Normal 0.0 [facility] Comment on above: Performed By: #### C DP, CP, LIP, TROPI, LIPRF, GLYHGB #### [address] [address] Pigment Pusher: Brandon Anaya MD Platelet mean volume (Bld) [Entitic vol] 10.5 fL Normal 8.1-13.5 [facility] Comment on above: Performed By: #### C DP, CP, LIP, TROPI, LIPRF, GLYHGB #### [address] [address] Pigment Pusher: Brandon Anaya MD Platelets (Bld) [#/Vol] 210 10*3/uL Normal 138-453 [facility] Comment on above: Performed By: #### C DP, CP, LIP, TROPI, LIPRF, GLYHGB #### [facility] [employer] [address] [place] [address] Pigment Pusher: Brandon Anaya MD RBC (Bld) [#/Vol] 4.87 10*6/uL Normal 3.95-5.11 [facility] Comment on above: Performed By: #### C DP, CP, LIP, TROPI, LIPRF, GLYHGB #### [facility] [employer] [address] [place] [address] Pigment Pusher: Brandon Anaya MD RBC morphology finding Nom (Bld) ANISOCYTOSIS PRESENT Normal [facility] Comment on above: Performed By: #### C DP, CP, LIP, TROPI, LIPRF, GLYHGB #### [facility] [employer] [address] [place] [address] Pigment Pusher: Brandon Anaya MD WBC (Bld) [#/Vol] 12.3 10*3/uL High 3.5-11.3 [facility] Comment on above: Performed By: #### C DP, CP, LIP, TROPI, LIPRF, GLYHGB #### [address] [address] Pigment Pusher: Brandon Anaya MD Auto Diff Performed NOT REPORTED Normal [facility] Comment on above: Performed By: #### C DP, CP, LIP, TROPI, LIPRF, GLYHGB #### [facility] [employer] [address] [place] [address] Pigment Pusher: Brandon Anaya MD Platelets (Bld) [#/Vol] NOT REPORTED Normal [facility] Comment on above: Performed By: #### C DP, CP, LIP, TROPI, LIPRF, GLYHGB #### [facility] [employer] [address] [place], [place] [phone] Pigment Pusher: Brandon Anaya MD WBC Morphology NOT REPORTED Normal [facility] Comment on above: Performed By: #### C DP, CP, LIP, TROPI, LIPRF, GLYHGB #### [facility] [address] [place], [place] [phone] Pigment Pusher: Brandon Anaya MD Magnesiumon 10-13-2019 Magnesium [Mass/Vol] 2.2 mg/dL Normal 1.6-2.6 [facility] Comment on above: Performed By: #### C DP, CP, LIP, TROPI, LIPRF, GLYHGB #### [facility] [employer] [address] [place] [address] Pigment Pusher: Brandon Anaya MD Magnesium [Mass/Vol] 2.2 mg/dL 1.6 - 2 .6 mg/dL [place] POC Glucose Fingerstickon Glucose [Mass/Vol] 121 mg/dL High 65 - 105 mg/dL [place] Interpretation and review of laboratory results Abnormal [place] Glucose [Mass/Vol] 100 mg/dL 65 - 105 mg/dL [place] Glucose [Mass/Vol] 104 mg/dL 65 - 105 mg/dL [place] Glucose [Mass/Vol] 123 mg/dL High 65 - 105 mg/dL [place] Interpretation and review of laboratory results Abnormal [place] Venous Blood Gaseson 020 Body Temp. 37.0 Normal [facility] Comment on above: Performed By: #### C DP, CP, LIP, TROPI, LIPRF, GLYHGB #### [facility] [address] [place], [place] [phone] Pigment Pusher: Brandon Anaya MD Carboxy Hgb 1.3 % Normal 0-5 [facility] Comment on above: Result Comment: Reference Range: Non-Smokers 0-2% Average Smoker 2-4% Heavy Smoker <10% Performed By: #### C DP, CP, LIP, TROPI, LIPRF, GLYHGB #### [address] [address] Pigment Pusher: Brandon Anaya MD FIO2 ROOM AIR Normal [facility] Comment on above: Performed By: #### C DP, CP, LIP, TROPI, LIPRF, GLYHGB #### [address] [address] Pigment Pusher: Brandon Anaya MD HCO3 (Bld) [Moles/Vol] 28.4 mmol/L Normal 24-30 [facility] Comment on above: Performed By: #### C DP, CP, LIP, TROPI, LIPRF, GLYHGB #### [address] [address] Pigment Pusher: Brandon Anaya MD Oxygen (Bld) [Partial pressure] 41.1 mm[Hg] Normal 30-50 [facility] Comment on above: Performed By: #### C DP, CP, LIP, TROPI, LIPRF, GLYHGB #### [address] [address] Pigment Pusher: Brandno Anaya MD Oxygen saturation in Blood 78.1 % Normal 60.0-85.0 [facility] Comment on above: Performed By: #### C DP, CP, LIP, TROPI, LIPRF, GLYHGB #### [address] [address] Pigment Pusher: Brandon Anaya MD pCO2 42.6 Normal 39-55 [facility] Comment on above: Performed By: #### C DP, CP, LIP, TROPI, LIPRF, GLYHGB #### [address] [address] Pigment Pusher: Brandon Anaya MD pH (Bld) 7.439 [pH] High 7.320-7.420 [facility] Comment on above: Performed By: #### C DP, CP, LIP, TROPI, LIPRF, GLYHGB #### [address] [address] Pigment Pusher: Brandon Anaya MD Positive Base Excess 4.2 mmol/L High 0.0-2.0 [facility] Comment on above: Performed By: #### C DP, CP, LIP, TROPI, LIPRF, GLYHGB #### [address] [address] Pigment Pusher: Brandon Anaya MD Andrés Test NOT REPORTED Normal [facility] Comment on above: Performed By: #### C DP, CP, LIP, TROPI, LIPRF, GLYHGB #### [address] [address] Pigment Pusher: Brandon Anaya MD Methemoglobin NOT REPORTED Normal 0.0-1.5 [facility] Comment on above: Performed By: #### C DP, CP, LIP, TROPI, LIPRF, GLYHGB #### [address] [address] Pigment Pusher: Brandon Anaya MD Mode NOT REPORTED Normal [facility] Comment on above: Performed By: #### C DP, CP, LIP, TROPI, LIPRF, GLYHGB #### [address] [address] Pigment Pusher: Brandon Anaya MD Negative Base Excess NOT REPORTED Normal 0.0-2.0 [facility] Comment on above: Performed By: #### C DP, CP, LIP, TROPI, LIPRF, GLYHGB #### [facility] [employer] [address] [place] [address] Pigment Pusher: Brandon Anaya MD Notification Time NOT REPORTED Normal [facility] Comment on above: Performed By: #### C DP, CP, LIP, TROPI, LIPRF, GLYHGB #### [address] [address] Pigment Pusher: Brandon Anaya MD Notification: NOT REPORTED Normal [facility] Comment on above: Performed By: #### C DP, CP, LIP, TROPI, LIPRF, GLYHGB #### [address] [address] Pigment Pusher: Brandon Anaya MD O2 Device/Flow/% NOT REPORTED Normal [facility] Comment on above: Performed By: #### C DP, CP, LIP, TROPI, LIPRF, GLYHGB #### [address] [address] Pigment Pusher: Brandon Anaya MD Oxyhemoglobin NOT REPORTED Normal 95.0-98.0 [facility] Comment on above: Performed By: #### C DP, CP, LIP, TROPI, LIPRF, GLYHGB #### [address] [address] Pigment Pusher: Brandon Anaya MD Pco2 Adj'd for Temp. NOT REPORTED Normal 39-55 Me [facility] Comment on above: Performed By: #### C DP, CP, LIP, TROPI, LIPRF, GLYHGB #### [address] [address] Pigment Pusher: Brandon Anaya MD PEEP/CPAP NOT REPORTED Normal [facility] Comment on above: Performed By: #### C DP, CP, LIP, TROPI, LIPRF, GLYHGB #### [address] [address] Pigment Pusher: Brandon Anaya MD pH Adjst'd for Temp. NOT REPORTED Normal 7.320-7.420 M [facility] Comment on above: Performed By: #### C DP, CP, LIP, TROPI, LIPRF, GLYHGB #### [address] [address] Pigment Pusher: Brandon Anaya MD pO2 Adj'd for Temp. NOT REPORTED Normal 30-50 [facility] Comment on above: Performed By: #### C DP, CP, LIP, TROPI, LIPRF, GLYHGB #### [address] [address] Pigment Pusher: Brandon Anaya MD PSV NOT REPORTED Normal [facility] Comment on above: Performed By: #### C DP, CP, LIP, TROPI, LIPRF, GLYHGB #### [address] [address] Pigment Pusher: Brandon Anaya MD Pt. Position NOT REPORTED Normal [facility] Comment on above: Performed By: #### C DP, CP, LIP, TROPI, LIPRF, GLYHGB #### [address] [address] Pigment Pusher: Brandon Anaya MD Set Rate NOT REPORTED Normal [facility] Comment on above: Performed By: #### C DP, CP, LIP, TROPI, LIPRF, GLYHGB #### [address] [address] Pigment Pusher: Brandon Anaya MD Site Drawn NOT REPORTED Normal [facility] Comment on above: Performed By: #### C DP, CP, LIP, TROPI, LIPRF, GLYHGB #### [address] [address] Pigment Pusher: Brandon Anaya MD Text for Respiratory NOT REPORTED Normal [facility] Comment on above: Performed By: #### C DP, CP, LIP, TROPI, LIPRF, GLYHGB #### [facility] [employer] [address] [place] [phone] Pigment Pusher: Brandon Anaya MD Total Hb NOT REPORTED Normal 12.0-16.0 [facility] Comment on above: Performed By: #### C DP, CP, LIP, TROPI, LIPRF, GLYHGB #### [address] [address] Pigment Pusher: Brandon Anaya MD Total Rate NOT REPORTED Normal [facility] Comment on above: Performed By: #### C DP, CP, LIP, TROPI, LIPRF, GLYHGB #### [address] [address] Pigment Pusher: Brandon Anaya MD [place] NOT REPORTED Normal [facility] Comment on above: Performed By: #### C DP, CP, LIP, TROPI, LIPRF, GLYHGB #### [address] [address] Pigment Pusher: Brandon Anaya MD [facility] 10-12-2019 Comment: NOT REPORTED Normal [facility] Comment on above: Performed By: #### C DP, CP, LIP, TROPI, LIPRF, GLYHGB #### [address] [address] Pigment Pusher: Brandon Anaya MD Basic Metab w/rfx on 10-11 Potassium [Moles/Vol] 3.3 mmol/L Low 3.7-5.3 [facility] Comment on above: Performed By: #### C DP, CP, LIP, TROPI, LIPRF, GLYHGB #### [address] [address] Pigment Pusher: Brandon Anaya MD (cont.) Normal [facility] Comment on above: Result Comment: Aver age GFR for 70 or more years old: 75 mL/min/1.73sq m Chronic Kidney Disease: <60 mL/min/1.73sq m Kidney failure: <15 mL/min/1.73sq m eGFR calculated using average adult body mass. Additional eGFR calculator available at: http://www.Jovie.Vital Insight/multiple_crcl_2012.htm Performed By: #### C DP, CP, LIP, TROPI, LIPRF, GLYHGB #### [facility] [employer] [address] [place] [phone] Pigment Pusher: Brandon Anaya MD Anion gap [Moles/Vol] 12 mmol/L Normal 9-17 [facility] Comment on above: Performed By: #### C DP, CP, LIP, TROPI, LIPRF, GLYHGB #### [facility] [employer] [address] [place] [phone] Pigment Pusher: Brandon Anaya MD Calcium [Mass/Vol] 8.6 mg/dL Normal 8.6-10.4 [facility] Comment on above: Performed By: #### C DP, CP, LIP, TROPI, LIPRF, GLYHGB #### [facility] [employer] [address] [place] [phone] Pigment Pusher: Brandon Anaya MD Chloride [Moles/Vol] 94 mmol/L Low 98-107 [facility] Comment on above: Performed By: #### C DP, CP, LIP, TROPI, LIPRF, GLYHGB #### [facility] [employer] [address] [place] [phone] Pigment Pusher: Brandon Anaya MD CO2 [Moles/Vol] 26 mmol/L Normal 20-31 [facility] Comment on above: Performed By: #### C DP, CP, LIP, TROPI, LIPRF, GLYHGB #### [facility] [employer] [address] [place] [phone] Pigment Pusher: Brandon Anaya MD Creatinine [Mass/Vol] 0.46 mg/dL Low 0.50-0.90 [facility] Comment on above: Performed By: #### C DP, CP, LIP, TROPI, LIPRF, GLYHGB #### [address] [address] Pigment Pusher: Brandon Anaya MD GFR, Amer >60 Normal >60 [facility] Comment on above: Performed By: #### C DP, CP, LIP, TROPI, LIPRF, GLYHGB #### [address] [address] Pigment Pusher: Brandon Anaya MD GFR,non Amer >60 Normal >60 [facility] Comment on above: Performed By: #### C DP, CP, LIP, TROPI, LIPRF, GLYHGB #### [address] [address] Pigment Pusher: Brandon Anaya MD Glucose [Mass/Vol] 136 mg/dL High 70-99 [facility] Comment on above: Performed By: #### C DP, CP, LIP, TROPI, LIPRF, GLYHGB #### [address] [address] Pigment Pusher: Brandon Anaya MD Sodium [Moles/Vol] 132 mmol/L Low 135-144 [facility] Comment on above: Performed By: #### C DP, CP, LIP, TROPI, LIPRF, GLYHGB #### [address] [address] Pigment Pusher: Brandon Anaya MD Urea nitrogen [Mass/Vol] 16 mg/dL Normal 8-23 [facility] Comment on above: Performed By: #### C DP, CP, LIP, TROPI, LIPRF, GLYHGB #### [address] [address] Pigment Pusher: Brandon Anaya MD BUN/CRE Ratio NOT REPORTED Normal 9-20 [facility] Comment on above: Performed By: #### C DP, CP, LIP, TROPI, LIPRF, GLYHGB #### [facility] [address] [place], [place] [phone] Pigment Pusher: Brandon Anaya MD Staging: NOT REPORTED Normal [facility] Comment on above: Performed By: #### C DP, CP, LIP, TROPI, LIPRF, GLYHGB #### [facility] [employer] [address] [place], [place] [phone] Pigment Pusher: Brandon Anaya MD Basic Metabolic Panel w/ Ref kervin to MGon 10-12-2019 Anion gap [Moles/Vol] 12 mmol/L 9 - 17 mmol/L [place] Bun/Cre Ratio NOT REPORTED [place] Calcium [Mass/Vol] 8.6 mg/dL 8.6 - 10. 4 mg/dL [place] Chloride [Moles/Vol] 94 mmol/L Low 98 - 10 7 mmol/L [place] CO2 [Moles/Vol] 26 mmol/L 20 - 31 mmol/L [place] Creatinine [Mass/Vol] 0.46 mg/dL Low 0.5 - 0.9 mg/dL [place] GFR >60 >60 mL/min [place] GFR Non- >60 >60 mL/min [place] GFR/1.73 sq M predicted among non-blacks MDRD (S/P/Bld) [Vol rate/Area] [place] Comment on above: Average GFR for 70 o r more years old: 75 mL/min/1.73sq m Chronic Kidney Disease: <60 mL/min/1.73sq m Kidney failure: <15 mL/min/1.73sq m eGFR calculated using average adult body mass. Additional eGFR calculator available at: http://www.Jovie.Vital Insight/multiple_crcl_2012.htm GFR/1.73 sq M predicted among non-blacks MDRD (S/P/Bld) [Vol rate/Area] NOT REPORTED [place] Glucose [Mass/Vol] 136 mg/dL High 70 - 99 mg/dL [place] Interpretation and review of laboratory results Abnormal [place] Potassium [Moles/Vol] 3.3 mmol/L Low 3.7 - 5.3 mmol/L [place] Sodium [Moles/Vol] 132 mmol/L Low 135 - 144 mmol/L [place] Urea nitrogen [Mass/Vol] 16 mg/dL 8 - 23 mg/dL [place] CBC auto differentialon 09-24 Basophils (Bld) [#/Vol] 0.04 10*3/uL [place] Basophils/100 WBC (Bld) 0 % 0 - 2 % [place] Differential Type NOT REPORTED [place] Eosinophils (Bld) [#/Vol] 10*3/uL [place] Eosinophils/100 WBC (Bld) 0 % Low 1 - 4 % [place] Erythrocyte distribution width (RBC) [Ratio] 14.7 % High 11.8 - 14.4 % [place] Hematocrit (Bld) [Volume fraction] 40.5 % 36.3 - 47.1 % [place] Hemoglobin (Bld) [Mass/Vol] 12.7 g/dL 11.9 - 15.1 g/dL [place] Immature granulocytes (Bld) [#/Vol] 0.11 10*3/uL [place] Immature granulocytes (Bld) [#/Vol] 1 % High 0 [place] Interpretation and review of laboratory results Abnormal [place] Lymphocytes (Bld) [#/Vol] 1.50 10*3/uL [place] Lymphocytes/100 WBC (Bld) 12 % Low 24 - 43 % [place] MCH (RBC) [Entitic mass] 29.4 pg 25.2 - 33.5 pg [place] MCHC (RBC) [Mass/Vol] 31.4 g/dL 28.4 - 34.8 g/dL [place] MCV (RBC) [Entitic vol] 93.8 fL 82.6 - 102.9 fL [place] Monocytes (Bld) [#/Vol] 0.87 10*3/uL [place] Monocytes/100 WBC (Bld) 7 % 3 - 12 % [place] Platelet mean volume (Bld) [Entitic vol] 10.7 fL 8.1 - 13.5 fL [place] Platelets (Bld) [#/Vol] 196 10*3/uL [place] Platelets (Bld) [#/Vol] NOT REPORTED [place] RBC (Bld) [#/Vol] 4.32 10*6/uL 3.95 - 5.1 1 m/uL [place] RBC morphology finding Nom (Bld) ANISOCYTOSIS PRESENT [place] Segmented neutrophils/100 WBC (Bld) 79 % High 36 - 65 % [place] Segs Absolute 9.64 High [place] WBC (Bld) [#/Vol] 12.2 10*3/uL [place] WBC (Bld) [#/Vol] 0.0 10*3/uL 0.0 per 10 0 WBC [place] WBC Morphology NOT REPORTED [place] CBC with Diffon 10-12-2019 Abs. Basophil 0.04 k/uL Normal 0.00-0.20 [facility] Comment on above: Performed By: #### C DP, CP, LIP, TROPI, LIPRF, GLYHGB #### [facility] [employer] [address] [place] [address] [phone] Pigment Pusher: Brandon Anaya MD Abs.Imm.Granulocyte 0.11 k/uL Normal 0.00-0.30 [facility] Comment on above: Performed By: #### C DP, CP, LIP, TROPI, LIPRF, GLYHGB #### [facility] [employer] [address] [place] [address] [phone] Pigment Pusher: Brandon Anaya MD Abs.Neutrophil (Seg) 9.64 k/uL High 1.50-8.10 [facility] Comment on above: Performed By: #### C DP, CP, LIP, TROPI, LIPRF, GLYHGB #### [facility] [employer] [address] [place] [phone] Pigment Pusher: Brandon Anaya MD Basophils/100 WBC (Bld) 0 % Normal 0-2 [facility] Comment on above: Performed By: #### C DP, CP, LIP, TROPI, LIPRF, GLYHGB #### [facility] [employer] [address] [place] [phone] Pigment Pusher: Brandon Anaya MD Eosinophils (Bld) [#/Vol] 10*3/uL Normal 0.00-0.44 [facility] Comment on above: Performed By: #### C DP, CP, LIP, TROPI, LIPRF, GLYHGB #### [address] [address] Pigment Pusher: Brandon Anaya MD Eosinophils/100 WBC (Bld) 0 % Low 1-4 [facility] Comment on above: Performed By: #### C DP, CP, LIP, TROPI, LIPRF, GLYHGB #### [facility] [employer] [address] [place] [phone] Pigment Pusher: Brandon Anaya MD Erythrocyte distribution width (RBC) [Ratio] 14.7 % High 11.8-14.4 [facility] Comment on above: Performed By: #### C DP, CP, LIP, TROPI, LIPRF, GLYHGB #### [facility] [employer] [address] [place] [phone] Pigment Pusher: Brandon Anaya MD Hematocrit (Bld) [Volume fraction] 40.5 % Normal 36.3-47.1 [facility] Comment on above: Performed By: #### C DP, CP, LIP, TROPI, LIPRF, GLYHGB #### [facility] [employer] [address] [place] [address] [phone] Pigment Pusher: Brandon Anaya MD Hemoglobin (Bld) [Mass/Vol] 12.7 g/dL Normal 11.9-15.1 [facility] Comment on above: Performed By: #### C DP, CP, LIP, TROPI, LIPRF, GLYHGB #### [address] [address] Pigment Pusher: Brandon Anaya MD Immature granulocytes (Bld) [#/Vol] 1 % High 0 [facility] Comment on above: Performed By: #### C DP, CP, LIP, TROPI, LIPRF, GLYHGB #### [address] [address] Pigment Pusher: Brandon Anaya MD Lymphocytes (Bld) [#/Vol] 1.50 10*3/uL Normal 1.10-3.70 [facility] Comment on above: Performed By: #### C DP, CP, LIP, TROPI, LIPRF, GLYHGB #### [address] [address] Pigment Pusher: Brandon Anaya MD Lymphocytes/100 WBC (Bld) 12 % Low 24-43 [facility] Comment on above: Performed By: #### C DP, CP, LIP, TROPI, LIPRF, GLYHGB #### [address] [address] Pigment Pusher: Brandon Anaya MD MCH (RBC) [Entitic mass] 29.4 pg Normal 25.2-33.5 [facility] Comment on above: Performed By: #### C DP, CP, LIP, TROPI, LIPRF, GLYHGB #### [address] [address] Pigment Pusher: Brandon Anaya MD MCHC (RBC) [Mass/Vol] 31.4 g/dL Normal 28.4-34.8 [facility] Comment on above: Performed By: #### C DP, CP, LIP, TROPI, LIPRF, GLYHGB #### [address] [address] Pigment Pusher: Brandon Anaya MD MCV (RBC) [Entitic vol] 93.8 fL Normal 82.6-102.9 [facility] Comment on above: Performed By: #### C DP, CP, LIP, TROPI, LIPRF, GLYHGB #### [address] [address] Pigment Pusher: Brandon Anaya MD Monocytes (Bld) [#/Vol] 0.87 10*3/uL Normal 0.10-1.20 [facility] Comment on above: Performed By: #### C DP, CP, LIP, TROPI, LIPRF, GLYHGB #### [address] [address] Pigment Pusher: Brandon Anaya MD Monocytes/100 WBC (Bld) 7 % Normal 3-12 [facility] Comment on above: Performed By: #### C DP, CP, LIP, TROPI, LIPRF, GLYHGB #### [address] [address] Pigment Pusher: Brandon Anaya MD Neutrophil (Seg) 79 % High 36-65 [facility] Comment on above: Performed By: #### C DP, CP, LIP, TROPI, LIPRF, GLYHGB #### [address] [address] Pigment Pusher: Brandon Anaya MD NRBC Automated 0.0 per 100 WBC Normal 0.0 [facility] Comment on above: Performed By: #### C DP, CP, LIP, TROPI, LIPRF, GLYHGB #### [address] [address] Pigment Pusher: Brandon Anaya MD Platelet mean volume (Bld) [Entitic vol] 10.7 fL Normal 8.1-13.5 [facility] Comment on above: Performed By: #### C DP, CP, LIP, TROPI, LIPRF, GLYHGB #### [address] [address] Pigment Pusher: Brandon Anaya MD Platelets (Bld) [#/Vol] 196 10*3/uL Normal 138-453 [facility] Comment on above: Performed By: #### C DP, CP, LIP, TROPI, LIPRF, GLYHGB #### [address] [address] Pigment Pusher: Brandon Anaya MD RBC (Bld) [#/Vol] 4.32 10*6/uL Normal 3.95-5.11 [facility] Comment on above: Performed By: #### C DP, CP, LIP, TROPI, LIPRF, GLYHGB #### [address] [address] Pigment Pusher: Brandon Anaya MD RBC morphology finding Nom (Bld) ANISOCYTOSIS PRESENT Normal [facility] Comment on above: Performed By: #### C DP, CP, LIP, TROPI, LIPRF, GLYHGB #### [address] [address] Pigment Pusher: Brandon Anaya MD WBC (Bld) [#/Vol] 12.2 10*3/uL High 3.5-11.3 [facility] Comment on above: Performed By: #### C DP, CP, LIP, TROPI, LIPRF, GLYHGB #### [address] [address] Pigment Pusher: Brandon Anaya MD Auto Diff Performed NOT REPORTED Normal [facility] Comment on above: Performed By: #### C DP, CP, LIP, TROPI, LIPRF, GLYHGB #### [facility] [address] [place] [address] Pigment Pusher: Brandon Anaya MD Platelets (Bld) [#/Vol] NOT REPORTED Normal [facility] Comment on above: Performed By: #### C DP, CP, LIP, TROPI, LIPRF, GLYHGB #### [facility] [address] [place] [address] Pigment Pusher: Brandon Anaya MD WBC Morphology NOT REPORTED Normal [facility] Comment on above: Performed By: #### C DP, CP, LIP, TROPI, LIPRF, GLYHGB #### [facility] [address] [place] [phone] Pigment Pusher: Brandon Anaya MD Magnesiumon 10-12-2019 Magnesium [Mass/Vol] 2.2 mg/dL Normal 1.6-2.6 [facility] Comment on above: Performed By: #### C DP, CP, LIP, TROPI, LIPRF, GLYHGB #### [facility] [address] [place] [phone] Pigment Pusher: Brandon Anaya MD Magnesium [Mass/Vol] 2.2 mg/dL 1.6 - 2 .6 mg/dL [place] POC Glucose Fingerstickon Glucose [Mass/Vol] 117 mg/dL High 65 - 105 mg/dL [place] Interpretation and review of laboratory results Abnormal [place] Glucose [Mass/Vol] 115 mg/dL High 65 - 105 mg/dL [place] Interpretation and review of laboratory results Abnormal [place] Glucose [Mass/Vol] 123 mg/dL High 65 - 105 mg/dL [place] Interpretation and review of laboratory results Abnormal [place] Glucose [Mass/Vol] 117 mg/dL High 65 - 105 mg/dL [place] Interpretation and review of laboratory results Abnormal [place] URINALYSIS WITH MICROSCOPICo n 10-12-2019 Amorphous, UA NOT REPORTED None [place] Bacteria, UA NOT REPORTED None [place] Bilirubin Urine Negative NEGATIVE [place] Casts UA 0 TO 2 HYALINE Refer ence range defined for non-centrifuged specimen. [place] Color, UA YELLOW YELLOW [place] Crystals, UA NOT REPORTED None /HPF [place] Epithelial Cells UA 2 TO 5 [place] Glucose, Ur Negative NEGATIVE [place] Interpretation and review of laboratory results Abnormal [place] Ketones Ql (U) SMALL Abnormal NEGATIVE [place] Leukocyte esterase Test strip Ql (U) Negative NEGATIVE [place] Mucus, UA NOT REPORTED None [place] Nitrite, Urine Negative NEGATIVE [place] Other Observations UA NOT REPORTED NOT REQ. M [place], [place] pH, UA 8.5 High [place] Protein (U) [Mass/Vol] Negative NEGATIVE [place] RBC (U) [#/Vol] TOO NUMEROUS TO COUNT [place] Comment on above: Reference range defi nya for non-centrifuged specimen. Renal Epithelial, UA NOT REPORTED 0 /HPF [place] Specific [place], UA 1.011 [place], [place] Trichomonas, UA NOT REPORTED None [place] Turbidity UA TURBID Abnormal CLEAR [place] Urine Hgb Negative NEGATIVE [place] Urobilinogen, Urine Normal Normal [place] WBC, UA 0 TO 2 [place] Yeast, UA NOT REPORTED None [place] - [place] Urinalysis w/ Microon 2019 ----- Normal [facility] Comment on above: Performed By: #### C DP, CP, LIP, TROPI, LIPRF, GLYHGB #### [facility] [place] [address] Pigment Pusher: Brandon Anaya MD Acetoacetic Acid,Ur SMALL Abnormal NEG [facility] Comment on above: Performed By: #### C DP, CP, LIP, TROPI, LIPRF, GLYHGB #### [address] [address] Pigment Pusher: Brandon Anaya MD Bilirubin, SemiQt,Ur Negative Normal NEG [facility] Comment on above: Performed By: #### C DP, CP, LIP, TROPI, LIPRF, GLYHGB #### [address] [address] Pigment Pusher: Brandon Anaay MD Casts LM.LPF (Urine sed) [#/Area] 0 TO 2 HYALINE Normal 0-8 [facility] Comment on above: Result Comment: Refe rence range defined for non-centrifuged specimen. Performed By: #### C DP, CP, LIP, TROPI, LIPRF, GLYHGB #### [address] [address] Pigment Pusher: Brandon Anaya MD Color (U) YELLOW Normal YEL [facility] Comment on above: Performed By: #### C DP, CP, LIP, TROPI, LIPRF, GLYHGB #### [address] [address] Pigment Pusher: Brandon Anaya MD Epithelial cells LM.HPF (Urine sed) [#/Area] 2 TO 5 Normal 0-5 [facility] Comment on above: Performed By: #### C DP, CP, LIP, TROPI, LIPRF, GLYHGB #### [address] [address] Pigment Pusher: Brandon Anaya MD Glucose Ql (U) Negative Normal NEG [facility] Comment on above: Performed By: #### C DP, CP, LIP, TROPI, LIPRF, GLYHGB #### [address] [address] Pigment Pusher: Brandon Anaya MD Hemoglobin, Ur Negative Normal NEG [facility] Comment on above: Performed By: #### C DP, CP, LIP, TROPI, LIPRF, GLYHGB #### [facility] [employer] [address] [place] [phone] Pigment Pusher: Brandon Anaya MD Leukocyte esterase Test strip Ql (U) Negative Normal NEG [facility] Comment on above: Performed By: #### C DP, CP, LIP, TROPI, LIPRF, GLYHGB #### [facility] [address] [place] [phone] Pigment Pusher: Brandon Anaya MD Nitrite,Ur Negative Normal NEG [facility] Comment on above: Performed By: #### C DP, CP, LIP, TROPI, LIPRF, GLYHGB #### [address] [address] Pigment Pusher: Brandon Anaya MD pH (U) 8.5 [pH] High 5.0-8.0 [facility] Comment on above: Performed By: #### C DP, CP, LIP, TROPI, LIPRF, GLYHGB #### [facility] [employer] [address] [place] [phone] Pigment Pusher: Brandon Anaya MD Protein Ql (U) Negative Normal NEG [facility] Comment on above: Performed By: #### C DP, CP, LIP, TROPI, LIPRF, GLYHGB #### [facility] [address] [place] [phone] Pigment Pusher: Brandon Anaya MD RBC (U) [#/Vol] TOO NUMEROUS TO COUNT Normal 0-4 [facility] Comment on above: Result Comment: Refe rence range defined for non-centrifuged specimen. Performed By: #### C DP, CP, LIP, TROPI, LIPRF, GLYHGB #### [facility] [address] [place] [phone] Pigment Pusher: Brandon Anaya MD Specific gravity (U) [Rel density] 1.011 Normal 1.005-1.030 [facility] Comment on above: Performed By: #### C DP, CP, LIP, TROPI, LIPRF, GLYHGB #### [address] [address] Pigment Pusher: Brandon Anaya MD Turbidity TURBID Abnormal CLEAR [facility] Comment on above: Performed By: #### C DP, CP, LIP, TROPI, LIPRF, GLYHGB #### [address] [address] Pigment Pusher: Brandon Anaya MD Urobilinogen,Ur Normal Normal NORM [facility] Comment on above: Performed By: #### C DP, CP, LIP, TROPI, LIPRF, GLYHGB #### [address] [address] Pigment Pusher: Brandon Anaya MD WBC (U) [#/Vol] 0 TO 2 Normal 0-5 [facility] Comment on above: Performed By: #### C DP, CP, LIP, TROPI, LIPRF, GLYHGB #### [facility] [address] [place] [phone] Pigment Pusher: Brandon Anaya MD Amorphous sediment LM Ql (Urine sed) NOT REPORTED Normal [facility] Comment on above: Performed By: #### C DP, CP, LIP, TROPI, LIPRF, GLYHGB #### [facility] [address] [place] [phone] Pigment Pusher: Brandon Anaya MD Bacteria LM.HPF (Urine sed) [#/Area] NOT REPORTED Normal [facility] Comment on above: Performed By: #### C DP, CP, LIP, TROPI, LIPRF, GLYHGB #### [facility] [address] [place] [phone] Pigment Pusher: Brandon Anaya MD Crystals LM Nom (Urine sed) NOT REPORTED Normal NONE [facility] Comment on above: Performed By: #### C DP, CP, LIP, TROPI, LIPRF, GLYHGB #### [facility] [address] [place] [phone] Pigment Pusher: Brandon Anaya MD Epithelial, Renal NOT REPORTED Normal 0 [facility] Comment on above: Performed By: #### C DP, CP, LIP, TROPI, LIPRF, GLYHGB #### [facility] [address] [place] [phone] Pigment Pusher: Brandon Anaya MD Mucus Strands NOT REPORTED Normal NONE [facility] Comment on above: Performed By: #### C DP, CP, LIP, TROPI, LIPRF, GLYHGB #### [address] [address] Pigment Pusher: Brandon Anaya MD Other Observations NOT REPORTED Normal [facility] Comment on above: Performed By: #### C DP, CP, LIP, TROPI, LIPRF, GLYHGB #### [facility] [address] [place] [phone] Pigment Pusher: Brandon Anaya MD Trichomonas NOT REPORTED Normal NONE [facility] Comment on above: Performed By: #### C DP, CP, LIP, TROPI, LIPRF, GLYHGB #### [facility] [address] [place] [phone] Pigment Pusher: Brandon Anaya MD Yeast LM Ql (Urine sed) NOT REPORTED Normal [facility] Comment on above: Performed By: #### C DP, CP, LIP, TROPI, LIPRF, GLYHGB #### [facility] [address] [place] [phone] Pigment Pusher: Brandon Anaya MD VL RENAL ARTERIAL DUPLEX COM PLETEon 10-12-2019 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 Patient Status:In Patient. Conclusions Summary Abdominal aortic aneurysm measuring 3.5 cm was noted. 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 Signature Electronically signed by Celena Juarez RVT, RDMS(Solar Sales Representative And Assessor) on 10/12/2019 09:55 AM Findings: Right Impression: Left Impression: Renal / [...] The average kidney length is 10.75 cm. [facility] [place], [place] Pri[place], Mhpn Incoming Cardio Results From [facility] - 10/12/2019 7:[address] 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 Patient Status:In Patient. Conclusions Summary Abdominal aortic aneurysm measuring 3.5 cm was noted. 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 Signature Electronically signed by Celena Juarez RVT, RDMS(Solar Sales Representative And Assessor) on 10/12/2019 09:55 AM Electronically signed [facility] on 10/12/2019 07:54 PM Findings: Right [...] The average kidney length is 10.75 cm. [facility]- [place], [place] XR CHEST PORTABLEon 10-12-19 20 XR CHEST [...] Argentina Guzmán MD 10/11/19 Final result Normal [facility] Basic Metab w/rfx MGon 10-10 (cont.) Normal [facility] Comment on above: Result Comment: Aver age GFR for 70 or more years old: 75 mL/min/1.73sq m Chronic Kidney Disease: <60 mL/min/1.73sq m Kidney failure: <15 mL/min/1.73sq m eGFR calculated using average adult body mass. Additional eGFR calculator available at: http://www.[employer]/multiple_crcl_2012.htm Performed By: #### C DP, CP, LIP, TROPI, LIPRF, GLYHGB #### [facility] [employer] [address] [place] [phone] Pigment Pusher: Brandon Anaya MD Anion gap [Moles/Vol] 15 mmol/L Normal 9-17 [facility] Comment on above: Performed By: #### C DP, CP, LIP, TROPI, LIPRF, GLYHGB #### [facility] [employer] [address] [place] [phone] Pigment Pusher: Brandon Anaya MD Calcium [Mass/Vol] 9.2 mg/dL Normal 8.6-10.4 [facility] Comment on above: Performed By: #### C DP, CP, LIP, TROPI, LIPRF, GLYHGB #### [address] [address] Pigment Pusher: Brandon Anaya MD Chloride [Moles/Vol] 96 mmol/L Low 98-107 [facility] Comment on above: Performed By: #### C DP, CP, LIP, TROPI, LIPRF, GLYHGB #### [facility] [employer] [address] [place] [phone] Pigment Pusher: Brandon Anaya MD CO2 [Moles/Vol] 24 mmol/L Normal 20-31 [facility] Comment on above: Performed By: #### C DP, CP, LIP, TROPI, LIPRF, GLYHGB #### [facility] [employer] [address] [place] [phone] Pigment Pusher: Brandon Anaya MD Creatinine [Mass/Vol] 0.55 mg/dL Normal 0.50-0.90 [facility] Comment on above: Performed By: #### C DP, CP, LIP, TROPI, LIPRF, GLYHGB #### [facility] [employer] [address] [place] [phone] Pigment Pusher: Brandon Anaya MD GFR, Amer >60 Normal >60 [facility] Comment on above: Performed By: #### C DP, CP, LIP, TROPI, LIPRF, GLYHGB #### [facility] [employer] [address] [place] [address] Pigment Pusher: Brandon Anaya MD GFR,non Amer >60 Normal >60 [facility] Comment on above: Performed By: #### C DP, CP, LIP, TROPI, LIPRF, GLYHGB #### [address] [address] Pigment Pusher: Brandon Anaya MD Glucose [Mass/Vol] 146 mg/dL High 70-99 [facility] Comment on above: Performed By: #### C DP, CP, LIP, TROPI, LIPRF, GLYHGB #### [address] [address] Pigment Pusher: Brandon Anaya MD Potassium [Moles/Vol] 3.6 mmol/L Low 3.7-5.3 [facility] Comment on above: Performed By: #### C DP, CP, LIP, TROPI, LIPRF, GLYHGB #### [address] [address] Pigment Pusher: Brandon Anaya MD Sodium [Moles/Vol] 135 mmol/L Normal 135-144 [facility] Comment on above: Performed By: #### C DP, CP, LIP, TROPI, LIPRF, GLYHGB #### [address] [address] Pigment Pusher: Brandon Anaya MD Urea nitrogen [Mass/Vol] 13 mg/dL Normal 8-23 [facility] Comment on above: Performed By: #### C DP, CP, LIP, TROPI, LIPRF, GLYHGB #### [address] [address] Pigment Pusher: Brandon Anaya MD BUN/CRE Ratio NOT REPORTED Normal 9-20 [facility] Comment on above: Performed By: #### C DP, CP, LIP, TROPI, LIPRF, GLYHGB #### [facility] [address] [place], [place] [phone] Pigment Pusher: Brandon Anaya MD Staging: NOT REPORTED Normal [facility] Comment on above: Performed By: #### C DP, CP, LIP, TROPI, LIPRF, GLYHGB #### [facility] [address], [place] [phone] Pigment Pusher: Brandon Anaya MD Basic Metabolic Panel w/ Ref kervin to on 10-11-2019 Anion gap [Moles/Vol] 15 mmol/L 9 - 17 mmol/L [place] Bun/Cre Ratio NOT REPORTED [place] Calcium [Mass/Vol] 9.2 mg/dL 8.6 - 10. 4 mg/dL [place] Chloride [Moles/Vol] 96 mmol/L Low 98 - 10 7 mmol/L [place] CO2 [Moles/Vol] 24 mmol/L 20 - 31 mmol/L [place] Creatinine [Mass/Vol] 0.55 mg/dL 0.5 - 0.9 mg/dL [place] GFR >60 >60 mL/min [place] GFR Non- >60 >60 mL/min [place] GFR/1.73 sq M predicted among non-blacks MDRD (S/P/Bld) [Vol rate/Area] NOT REPORTED [place] GFR/1.73 sq M predicted among non-blacks MDRD (S/P/Bld) [Vol rate/Area] [place] Comment on above: Average GFR for 70 o r more years old: 75 mL/min/1.73sq m Chronic Kidney Disease: <60 mL/min/1.73sq m Kidney failure: <15 mL/min/1.73sq m eGFR calculated using average adult body mass. Additional eGFR calculator available at: http://www.[employer]/multiple_crcl_2012.htm Glucose [Mass/Vol] 146 mg/dL High 70 - 99 mg/dL [place] Interpretation and review of laboratory results Abnormal [place] Potassium [Moles/Vol] 3.6 mmol/L Low 3.7 - 5.3 mmol/L [place] Sodium [Moles/Vol] 135 mmol/L 135 - 144 mmol/L [place] Urea nitrogen [Mass/Vol] 13 mg/dL 8 - 23 mg/dL [place] CBC auto differentialon 09-24 Basophils (Bld) [#/Vol] 0.03 10*3/uL [place] Basophils/100 WBC (Bld) 0 % 0 - 2 % [place] Differential Type NOT REPORTED [place] Eosinophils (Bld) [#/Vol] 10*3/uL [place] Eosinophils/100 WBC (Bld) 0 % Low 1 - 4 % [place] Erythrocyte distribution width (RBC) [Ratio] 14.3 % 11.8 - 14.4 % [place] Hematocrit (Bld) [Volume fraction] 43.6 % 36.3 - 47.1 % [place] Hemoglobin (Bld) [Mass/Vol] 13.7 g/dL 11.9 - 15.1 g/dL [place] Immature granulocytes (Bld) [#/Vol] 1 % High 0 [place] Immature granulocytes (Bld) [#/Vol] 0.07 10*3/uL [place] Interpretation and review of laboratory results Abnormal [place] Lymphocytes (Bld) [#/Vol] 0.92 10*3/uL Low [place] Lymphocytes/100 WBC (Bld) 14 % Low 24 - 43 % [place] MCH (RBC) [Entitic mass] 29.1 pg 25.2 - 33.5 pg [place] MCHC (RBC) [Mass/Vol] 31.4 g/dL 28.4 - 34.8 g/dL [place] MCV (RBC) [Entitic vol] 92.6 fL 82.6 - 102.9 fL [place] Monocytes (Bld) [#/Vol] 0.07 10*3/uL Low [place] Monocytes/100 WBC (Bld) 1 % Low 3 - 12 % [place] Platelet mean volume (Bld) [Entitic vol] 10.6 fL 8.1 - 13.5 fL [place] Platelets (Bld) [#/Vol] NOT REPORTED [place] Platelets (Bld) [#/Vol] 196 10*3/uL [place] RBC (Bld) [#/Vol] 4.71 10*6/uL 3.95 - 5.1 1 m/uL [place] RBC morphology finding Nom (Bld) NOT REPORTED [place] Segmented neutrophils/100 WBC (Bld) 84 % High 36 - 65 % [place] Segs Absolute 5.67 [place] WBC (Bld) [#/Vol] 0.0 10*3/uL 0.0 per 10 0 WBC [place] WBC (Bld) [#/Vol] 6.8 10*3/uL [place] WBC Morphology NOT REPORTED [place] CBC with Diffon 10-11-2019 Abs. Basophil 0.03 k/uL Normal 0.00-0.20 [facility] Comment on above: Performed By: #### C DP, CP, LIP, TROPI, LIPRF, GLYHGB #### [employer] [address] [place] [address] [phone] Pigment Pusher: Brandon Anaya MD Abs.Imm.Granulocyte 0.07 k/uL Normal 0.00-0.30 [facility] Comment on above: Performed By: #### C DP, CP, LIP, TROPI, LIPRF, GLYHGB #### [facility] [employer] [address] [place] [address] [phone] Pigment Pusher: Brandon Anaya MD Abs.Neutrophil (Seg) 5.67 k/uL Normal 1.50-8.10 [facility] Comment on above: Performed By: #### C DP, CP, LIP, TROPI, LIPRF, GLYHGB #### [address] [address] Pigment Pusher: Brandon Anaya MD Basophils/100 WBC (Bld) 0 % Normal 0-2 [facility] Comment on above: Performed By: #### C DP, CP, LIP, TROPI, LIPRF, GLYHGB #### [place] [address] Pigment Pusher: Brandon Anaya MD Eosinophils (Bld) [#/Vol] 10*3/uL Normal 0.00-0.44 [facility] Comment on above: Performed By: #### C DP, CP, LIP, TROPI, LIPRF, GLYHGB #### [place] [address] Pigment Pusher: Brandon Anaya MD Eosinophils/100 WBC (Bld) 0 % Low 1-4 [facility] Comment on above: Performed By: #### C DP, CP, LIP, TROPI, LIPRF, GLYHGB #### [place] [address] Pigment Pusher: Brandon Anaya MD Erythrocyte distribution width (RBC) [Ratio] 14.3 % Normal 11.8-14.4 [facility] Comment on above: Performed By: #### C DP, CP, LIP, TROPI, LIPRF, GLYHGB #### [place] [address] Pigment Pusher: Brandon Anaya MD Hematocrit (Bld) [Volume fraction] 43.6 % Normal 36.3-47.1 [facility] Comment on above: Performed By: #### C DP, CP, LIP, TROPI, LIPRF, GLYHGB #### [facility] [employer] [address] [place] [phone] Pigment Pusher: Brandon Anaya MD Hemoglobin (Bld) [Mass/Vol] 13.7 g/dL Normal 11.9-15.1 [facility] Comment on above: Performed By: #### C DP, CP, LIP, TROPI, LIPRF, GLYHGB #### [facility] [employer] [address] [place] [address] Pigment Pusher: Brandon Anaya MD Immature granulocytes (Bld) [#/Vol] 1 % High 0 [facility] Comment on above: Performed By: #### C DP, CP, LIP, TROPI, LIPRF, GLYHGB #### [facility] [employer] [address] [place] [phone] Pigment Pusher: Brandon Anaya MD Lymphocytes (Bld) [#/Vol] 0.92 10*3/uL Low 1.10-3.70 [facility] Comment on above: Performed By: #### C DP, CP, LIP, TROPI, LIPRF, GLYHGB #### [facility] [employer] [address] [place] [phone] Pigment Pusher: Brandon Anaya MD Lymphocytes/100 WBC (Bld) 14 % Low 24-43 [facility] Comment on above: Performed By: #### C DP, CP, LIP, TROPI, LIPRF, GLYHGB #### [facility] [employer] [address] [place] [phone] Pigment Pusher: Brandon Anaya MD MCH (RBC) [Entitic mass] 29.1 pg Normal 25.2-33.5 [facility] Comment on above: Performed By: #### C DP, CP, LIP, TROPI, LIPRF, GLYHGB #### [facility] [employer] [address] [place] [phone] Pigment Pusher: Brandon Anaya MD MCHC (RBC) [Mass/Vol] 31.4 g/dL Normal 28.4-34.8 [facility] Comment on above: Performed By: #### C DP, CP, LIP, TROPI, LIPRF, GLYHGB #### [address] [address] Pigment Pusher: Brandon Anaya MD MCV (RBC) [Entitic vol] 92.6 fL Normal 82.6-102.9 [facility] Comment on above: Performed By: #### C DP, CP, LIP, TROPI, LIPRF, GLYHGB #### [address] [address] Pigment Pusher: Brandon Anaya MD Monocytes (Bld) [#/Vol] 0.07 10*3/uL Low 0.10-1.20 [facility] Comment on above: Performed By: #### C DP, CP, LIP, TROPI, LIPRF, GLYHGB #### [address] [address] Pigment Pusher: Brandon Anaya MD Monocytes/100 WBC (Bld) 1 % Low 3-12 [facility] Comment on above: Performed By: #### C DP, CP, LIP, TROPI, LIPRF, GLYHGB #### [address] [address] Pigment Pusher: Brandon Anaya MD Neutrophil (Seg) 84 % High 36-65 [facility] Comment on above: Performed By: #### C DP, CP, LIP, TROPI, LIPRF, GLYHGB #### [address] [address] Pigment Pusher: Brandon Anaya MD NRBC Automated 0.0 per 100 WBC Normal 0.0 [facility] Comment on above: Performed By: #### C DP, CP, LIP, TROPI, LIPRF, GLYHGB #### [address] [address] Pigment Pusher: Brandon Anaya MD Platelet mean volume (Bld) [Entitic vol] 10.6 fL Normal 8.1-13.5 [facility] Comment on above: Performed By: #### C DP, CP, LIP, TROPI, LIPRF, GLYHGB #### [address] [address] Pigment Pusher: Brandon Anaya MD Platelets (Bld) [#/Vol] 196 10*3/uL Normal 138-453 [facility] Comment on above: Performed By: #### C DP, CP, LIP, TROPI, LIPRF, GLYHGB #### [address] [address] Pigment Pusher: Brandon Anaya MD RBC (Bld) [#/Vol] 4.71 10*6/uL Normal 3.95-5.11 [facility] Comment on above: Performed By: #### C DP, CP, LIP, TROPI, LIPRF, GLYHGB #### [address] [address] Pigment Pusher: Brandon Anaya MD WBC (Bld) [#/Vol] 6.8 10*3/uL Normal 3.5-11.3 [facility] Comment on above: Performed By: #### C DP, CP, LIP, TROPI, LIPRF, GLYHGB #### [address] [address] Pigment Pusher: Brandon Anaya MD Auto Diff Performed NOT REPORTED Normal [facility] Comment on above: Performed By: #### C DP, CP, LIP, TROPI, LIPRF, GLYHGB #### [address] [address] Pigment Pusher: Brandon Anaya MD Platelets (Bld) [#/Vol] NOT REPORTED Normal [facility] Comment on above: Performed By: #### C DP, CP, LIP, TROPI, LIPRF, GLYHGB #### [facility] [address] [place] [address] Pigment Pusher: Brandon Anaya MD RBC morphology finding Nom (Bld) NOT REPORTED Normal [facility] Comment on above: Performed By: #### C DP, CP, LIP, TROPI, LIPRF, GLYHGB #### [facility] [address] [place] [address] Pigment Pusher: Brandon Anaya MD WBC Morphology NOT REPORTED Normal [facility] Comment on above: Performed By: #### C DP, CP, LIP, TROPI, LIPRF, GLYHGB #### [employer] [address], [place] [phone] Pigment Pusher: Brandon Anaya MD MRI BRAIN W WO [...] Chaitanya Sawyer MD 10/11/19 Final result Normal [facility] [place], M[facility]pn Incoming Radiant Results From [facility] - 10/11/2019 3:07 PM EDT EXAMINATION: MRI [...] Small meningioma over the right frontal lobe. [place] Volume loss with chr onic white matter microvascular ischemic change. Small meningioma over the right frontal lobe. [place] EXAMINATION: MRI OF THE BRAIN WITHOUT [...] The soft tissues demonstrate no acute abnormality. [place] POC Glucose Fingerstickon Glucose [Mass/Vol] 121 mg/dL High 65 - 105 mg/dL [place] Interpretation and review of laboratory results Abnormal [place] Glucose [Mass/Vol] 171 mg/dL High 65 - 105 mg/dL [place] Interpretation and review of laboratory results Abnormal [place] Glucose [Mass/Vol] 127 mg/dL High 65 - 105 mg/dL [place] Interpretation and review of laboratory results Abnormal [place] Glucose [Mass/Vol] 145 mg/dL High 65 - 105 mg/dL [place] Interpretation and review of laboratory results Abnormal [place] XR CHEST PORTABLEon 10-11-19 20 EXAMINATION: ONE XRA Y VIEW OF THE CHEST 10/11/2019 10:45 pm COMPARISON: 06/27/2017 HISTORY: ORDERING SYSTEM PROVIDED HISTORY: evaluate TECHNOLOGIST PROVIDED HISTORY: evaluate Reason for Exam: Upright portable Acuity: Unknown Type of Exam: Unknown FINDINGS: Cardiomediastinal silhouette is unchanged in size. Aortic atherosclerosis. No pulmonary consolidation, pleural effusion, or pneumothorax. No acute osseous abnormality. [place], [place] Incoming Radiant Results From [facility] - 10/11/2019 11:49 PM EDT EXAMINATION: ONE XRAY VIEW OF THE CHEST 10/11/2019 10:45 pm COMPARISON: 06/27/2017 HISTORY: ORDERING SYSTEM PROVIDED HISTORY: evaluate TECHNOLOGIST PROVIDED HISTORY: evaluate Reason for Exam: Upright portable Acuity: Unknown Type of Exam: Unknown FINDINGS: Cardiomediastinal silhouette is unchanged in size. Aortic atherosclerosis. No pulmonary consolidation, pleural effusion, or pneumothorax. No acute osseous abnormality. IMPRESSION: No acute cardiopulmonary abnormality. [place] No acute cardiopulmo nary abnormality. [facility] [place], [place] Basic Metab w/rfx MGon 10-09 (cont.) Normal [facility] Comment on above: Result Comment: Aver age GFR for 70 or more years old: 75 mL/min/1.73sq m Chronic Kidney Disease: <60 mL/min/1.73sq m Kidney failure: <15 mL/min/1.73sq m eGFR calculated using average adult body mass. Additional eGFR calculator available at: http://www.[employer]/multiple_crcl_2012.htm Performed By: #### C DP, CP, LIP, TROPI, LIPRF, GLYHGB #### [address] [address] Pigment Pusher: Brandon Anaya MD Anion gap [Moles/Vol] 10 mmol/L Normal 9-17 [facility] Comment on above: Performed By: #### C DP, CP, LIP, TROPI, LIPRF, GLYHGB #### [facility] [employer] [address] [place] [address] Pigment Pusher: Brandon Anaya MD Calcium [Mass/Vol] 9.0 mg/dL Normal 8.6-10.4 [facility] Comment on above: Performed By: #### C DP, CP, LIP, TROPI, LIPRF, GLYHGB #### [facility] [employer] [address] [place] [address] Pigment Pusher: Brandon Anaya MD Chloride [Moles/Vol] 97 mmol/L Low 98-107 [facility] Comment on above: Performed By: #### C DP, CP, LIP, TROPI, LIPRF, GLYHGB #### [facility] [employer] [address] [place] [address] Pigment Pusher: Brandon Anaya MD CO2 [Moles/Vol] 25 mmol/L Normal 20-31 [facility] Comment on above: Performed By: #### C DP, CP, LIP, TROPI, LIPRF, GLYHGB #### [address] [address] Pigment Pusher: Brandon Anaya MD Creatinine [Mass/Vol] 0.50 mg/dL Normal 0.50-0.90 [facility] Comment on above: Performed By: #### C DP, CP, LIP, TROPI, LIPRF, GLYHGB #### [address] [address] Pigment Pusher: Brandon Anaya MD GFR, Amer >60 Normal >60 [facility] Comment on above: Performed By: #### C DP, CP, LIP, TROPI, LIPRF, GLYHGB #### [address] [address] Pigment Pusher: Brandon Anaya MD GFR,non Amer >60 Normal >60 [facility] Comment on above: Performed By: #### C DP, CP, LIP, TROPI, LIPRF, GLYHGB #### [address] [address] Pigment Pusher: Brandon Anaya MD Glucose [Mass/Vol] 123 mg/dL High 70-99 [facility] Comment on above: Performed By: #### C DP, CP, LIP, TROPI, LIPRF, GLYHGB #### [address] [address] Pigment Pusher: Brandon Anaya MD Potassium [Moles/Vol] 3.5 mmol/L Low 3.7-5.3 [facility] Comment on above: Performed By: #### C DP, CP, LIP, TROPI, LIPRF, GLYHGB #### [address] [address] Pigment Pusher: Brandon Anaya MD Sodium [Moles/Vol] 132 mmol/L Low 135-144 [facility] Comment on above: Performed By: #### C DP, CP, LIP, TROPI, LIPRF, GLYHGB #### [facility] [address] [place] [address] Pigment Pusher: Brandon Anaya MD Urea nitrogen [Mass/Vol] 14 mg/dL Normal 8- [facility] Comment on above: Performed By: #### C DP, CP, LIP, TROPI, LIPRF, GLYHGB #### [facility] [address] [place] [address] Pigment Pusher: Brandon Anaya MD BUN/CRE Ratio NOT REPORTED Normal 11-13 [facility] Comment on above: Performed By: #### C DP, CP, LIP, TROPI, LIPRF, GLYHGB #### [facility] [address] [place] [address] Pigment Pusher: Brandon Anaya MD Staging: NOT REPORTED Normal [facility] Comment on above: Performed By: #### C DP, CP, LIP, TROPI, LIPRF, GLYHGB #### [facility] [address] [place] [address] Pigment Pusher: Brandon Anaya MD Basic Metabolic Panel w/ Ref kervin to [facility] 10-10-2019 Anion gap [Moles/Vol] 10 mmol/L 9 - 17 mmol/L [place] Bun/Cre Ratio NOT REPORTED [place] Calcium [Mass/Vol] 9.0 mg/dL 8.6 - 10. 4 mg/dL [place] Chloride [Moles/Vol] 97 mmol/L Low 98 - 10 7 mmol/L [place] CO2 [Moles/Vol] 25 mmol/L 20 - 31 mmol/L [place] Creatinine [Mass/Vol] 0.5 mg/dL 0.5 - 0.9 mg/dL [place] GFR >60 >60 mL/min [place] GFR Non- >60 >60 mL/min [place] GFR/1.73 sq M predicted among non-blacks MDRD (S/P/Bld) [Vol rate/Area] [place] Comment on above: Average GFR for 70 o r more years old: 75 mL/min/1.73sq m Chronic Kidney Disease: <60 mL/min/1.73sq m Kidney failure: <15 mL/min/1.73sq m eGFR calculated using average adult body mass. Additional eGFR calculator available at: http://www.[employer]/multiple_crcl_2012.htm GFR/1.73 sq M predicted among non-blacks MDRD (S/P/Bld) [Vol rate/Area] NOT REPORTED [place] Glucose [Mass/Vol] 123 mg/dL High 70 - 99 mg/dL [place] Interpretation and review of laboratory results Abnormal [place] Potassium [Moles/Vol] 3.5 mmol/L Low 3.7 - 5.3 mmol/L [place] Sodium [Moles/Vol] 132 mmol/L Low 135 - 144 mmol/L [place] Urea nitrogen [Mass/Vol] 14 mg/dL 8 - 23 mg/dL [place] C-REACTIVE PROTEINon 020 CRP [Mass/Vol] 6.3 mg/L High 0 - 5 mg/L [place] Interpretation and review of laboratory results Abnormal [place] C-Reactive Proteinon 020 CRP [Mass/Vol] 6.3 mg/L High 0.0-5.0 [facility] Comment on above: Performed By: #### C DP, CP, LIP, TROPI, LIPRF, GLYHGB #### [facility] [address] [place] [address] Pigment Pusher: Brandon Anaya MD CBC auto differentialon 09-24 Basophils (Bld) [#/Vol] 0.06 10*3/uL [place] Basophils/100 WBC (Bld) 1 % 0 - 2 % [place] Differential Type NOT REPORTED [place] Eosinophils (Bld) [#/Vol] 0.07 10*3/uL [place] Eosinophils/100 WBC (Bld) 1 % 1 - 4 % [place] Erythrocyte distribution width (RBC) [Ratio] 14.5 % High 11.8 - 14.4 % [place] Hematocrit (Bld) [Volume fraction] 42.7 % 36.3 - 47.1 % [place] Hemoglobin (Bld) [Mass/Vol] 13.5 g/dL 11.9 - 15.1 g/dL [place] Immature granulocytes (Bld) [#/Vol] 0.05 10*3/uL [place] Immature granulocytes (Bld) [#/Vol] 1 % High 0 [place] Interpretation and review of laboratory results Abnormal [place] Lymphocytes (Bld) [#/Vol] 1.05 10*3/uL Low [place] Lymphocytes/100 WBC (Bld) 14 % Low 24 - 43 % [place] MCH (RBC) [Entitic mass] 29.8 pg 25.2 - 33.5 pg [place] MCHC (RBC) [Mass/Vol] 31.6 g/dL 28.4 - 34.8 g/dL [place] MCV (RBC) [Entitic vol] 94.3 fL 82.6 - 102.9 fL [place] Monocytes (Bld) [#/Vol] 0.65 10*3/uL [place] Monocytes/100 WBC (Bld) 9 % 3 - 12 % [place] Platelet mean volume (Bld) [Entitic vol] 10.9 fL 8.1 - 13.5 fL [place] Platelets (Bld) [#/Vol] 170 10*3/uL [place] Platelets (Bld) [#/Vol] NOT REPORTED [place] RBC (Bld) [#/Vol] 4.53 10*6/uL 3.95 - 5.1 1 m/uL [place] RBC morphology finding Nom (Bld) ANISOCYTOSIS PRESENT [place] Segmented neutrophils/100 WBC (Bld) 74 % High 36 - 65 % [place] Segs Absolute 5.55 [place] WBC (Bld) [#/Vol] 0.0 10*3/uL 0.0 per 10 0 WBC [place] WBC (Bld) [#/Vol] 7.4 10*3/uL [place] WBC Morphology NOT REPORTED [place] CBC with Diffon 10-10-2019 Abs. Basophil 0.06 k/uL Normal 0.00-0.20 [facility] Comment on above: Performed By: #### C DP, CP, LIP, TROPI, LIPRF, GLYHGB #### [address] [address] Pigment Pusher: Brandon Anaya MD Abs.Imm.Granulocyte 0.05 k/uL Normal 0.00-0.30 [facility] Comment on above: Performed By: #### C DP, CP, LIP, TROPI, LIPRF, GLYHGB #### [address] [id number] Pigment Pusher: Brandon Anaya MD Abs.Neutrophil (Seg) 5.55 k/uL Normal 1.50-8.10 [facility] Comment on above: Performed By: #### C DP, CP, LIP, TROPI, LIPRF, GLYHGB #### [address] [address] Pigment Pusher: Brandon Anaya MD Basophils/100 WBC (Bld) 1 % Normal 0-2 [facility] Comment on above: Performed By: #### C DP, CP, LIP, TROPI, LIPRF, GLYHGB #### [address] [address] Pigment Pusher: Brandon Anaya MD Eosinophils (Bld) [#/Vol] 0.07 10*3/uL Normal 0.00-0.44 [facility] Comment on above: Performed By: #### C DP, CP, LIP, TROPI, LIPRF, GLYHGB #### [address] [address] Pigment Pusher: Brandon Anaya MD Eosinophils/100 WBC (Bld) 1 % Normal 1-4 [facility] Comment on above: Performed By: #### C DP, CP, LIP, TROPI, LIPRF, GLYHGB #### [place] [address] Pigment Pusher: Brandon Anaya MD Erythrocyte distribution width (RBC) [Ratio] 14.5 % High 11.8-14.4 [facility] Comment on above: Performed By: #### C DP, CP, LIP, TROPI, LIPRF, GLYHGB #### [place] [address] Pigment Pusher: Brandon Anaya MD Hematocrit (Bld) [Volume fraction] 42.7 % Normal 36.3-47.1 [facility] Comment on above: Performed By: #### C DP, CP, LIP, TROPI, LIPRF, GLYHGB #### [place] [address] Pigment Pusher: Brandon Anaya MD Hemoglobin (Bld) [Mass/Vol] 13.5 g/dL Normal 11.9-15.1 [facility] Comment on above: Performed By: #### C DP, CP, LIP, TROPI, LIPRF, GLYHGB #### [place] [address] Pigment Pusher: Brandon Anaya MD Immature granulocytes (Bld) [#/Vol] 1 % High 0 [facility] Comment on above: Performed By: #### C DP, CP, LIP, TROPI, LIPRF, GLYHGB #### [place] [address] Pigment Pusher: Brandon Anaya MD Lymphocytes (Bld) [#/Vol] 1.05 10*3/uL Low 1.10-3.70 [facility] Comment on above: Performed By: #### C DP, CP, LIP, TROPI, LIPRF, GLYHGB #### [place] [address] Pigment Pusher: Brandon Anaya MD Lymphocytes/100 WBC (Bld) 14 % Low 24-43 [facility] Comment on above: Performed By: #### C DP, CP, LIP, TROPI, LIPRF, GLYHGB #### [place] [address] Pigment Pusher: Brandon Anaya MD MCH (RBC) [Entitic mass] 29.8 pg Normal 25.2-33.5 [facility] Comment on above: Performed By: #### C DP, CP, LIP, TROPI, LIPRF, GLYHGB #### [place] [address] Pigment Pusher: Brandon Anaya MD MCHC (RBC) [Mass/Vol] 31.6 g/dL Normal 28.4-34.8 [facility] Comment on above: Performed By: #### C DP, CP, LIP, TROPI, LIPRF, GLYHGB #### [place] [address] Pigment Pusher: Brandon Anaya MD MCV (RBC) [Entitic vol] 94.3 fL Normal 82.6-102.9 [facility] Comment on above: Performed By: #### C DP, CP, LIP, TROPI, LIPRF, GLYHGB #### [address] [address] Pigment Pusher: Brandon Anaya MD Monocytes (Bld) [#/Vol] 0.65 10*3/uL Normal 0.10-1.20 [facility] Comment on above: Performed By: #### C DP, CP, LIP, TROPI, LIPRF, GLYHGB #### [address] [address] Pigment Pusher: Brandon Anaya MD Monocytes/100 WBC (Bld) 9 % Normal 3-12 [facility] Comment on above: Performed By: #### C DP, CP, LIP, TROPI, LIPRF, GLYHGB #### [address] [address] Pigment Pusher: Brandon Anaya MD Neutrophil (Seg) 74 % High 36-65 [facility] Comment on above: Performed By: #### C DP, CP, LIP, TROPI, LIPRF, GLYHGB #### [address] [address] Pigment Pusher: Brandon Anaya MD NRBC Automated 0.0 per 100 WBC Normal 0.0 [facility] Comment on above: Performed By: #### C DP, CP, LIP, TROPI, LIPRF, GLYHGB #### [address] [address] Pigment Pusher: Brandon Anaya MD Platelet mean volume (Bld) [Entitic vol] 10.9 fL Normal 8.1-13.5 [facility] Comment on above: Performed By: #### C DP, CP, LIP, TROPI, LIPRF, GLYHGB #### [address] [address] Pigment Pusher: Brandon Anaya MD Platelets (Bld) [#/Vol] 170 10*3/uL Normal 138-453 [facility] Comment on above: Performed By: #### C DP, CP, LIP, TROPI, LIPRF, GLYHGB #### [address] [address] Pigment Pusher: Brandon Anaya MD RBC (Bld) [#/Vol] 4.53 10*6/uL Normal 3.95-5.11 [facility] Comment on above: Performed By: #### C DP, CP, LIP, TROPI, LIPRF, GLYHGB #### [address] [address] Pigment Pusher: Brandon Anaya MD RBC morphology finding Nom (Bld) ANISOCYTOSIS PRESENT Normal [facility] Comment on above: Performed By: #### C DP, CP, LIP, TROPI, LIPRF, GLYHGB #### [address] [address] Pigment Pusher: Brandon Anaya MD WBC (Bld) [#/Vol] 7.4 10*3/uL Normal 3.5-11.3 [facility] Comment on above: Performed By: #### C DP, CP, LIP, TROPI, LIPRF, GLYHGB #### [address] [address] Pigment Pusher: Brandon Anaya MD Auto Diff Performed NOT REPORTED Normal [facility] Comment on above: Performed By: #### C DP, CP, LIP, TROPI, LIPRF, GLYHGB #### [address] [address] Pigment Pusher: Brandon Anaya MD Platelets (Bld) [#/Vol] NOT REPORTED Normal [facility] Comment on above: Performed By: #### C DP, CP, LIP, TROPI, LIPRF, GLYHGB #### [address] [address] Pigment Pusher: Brandon Anaya MD WBC Morphology NOT REPORTED Normal [facility] Comment on above: Performed By: #### C DP, CP, LIP, TROPI, LIPRF, GLYHGB #### [facility] [address] [place] [address] Pigment Pusher: Brandon Anaya MD CT HEAD WO CONTRASTon [...] Naga Browning MD 10/10/19 Final result Normal [facility] 1. No acute intracra nial abnormality. 2. Mild chronic white matter microvascular ischemic changes. [place], [place] EXAMINATION: CT OF T HE HEAD [...] of the visualized skull or soft tissues. [place], [place] Pri[place], Mhpn Incoming Radiant Results From [employer] - 10/10/2019 5:31 PM EDT EXAMINATION: CT [...] Mild chronic white matter microvascular ischemic changes. [place] CTA HEAD NECK W CONTRASTon 0 [...] Initial FINDINGS: CTA NECK: AORTIC ARCH/ARCH VESSELS: Sdvq-vq-omcohcdi atherosclerotic plaque at the arch arch and [...] midline shift. No extra-axial fluid collection. The samleron-white differentiation is maintained. IMPRESSION: 1. No acute arterial abnormality or hemodynamically significant arterial stenosis in the head or neck. 2. No intracranial aneurysm. Interpreted by: Naga Browning MD Signed by: Naga Browning MD 10/10/19 Final result Normal [facility] EXAMINATION: CTA OF THE HEAD [...] Initial FINDINGS: CTA NECK: AORTIC ARCH/ARCH VESSELS: Xgmg-ba-bvddymyl atherosclerotic plaque at the arch arch and [...] fluid collection. The salmeron-white differentiation is maintained. [place] 1. No acute arterial abnormality or hemodynamically significant arterial stenosis in the head or neck. 2. No intracranial aneurysm. [place], [place] Pri[place], Mhpn Incoming Radiant Results From [employer] - 10/10/2019 5:36 PM EDT EXAMINATION: CTA [...] Initial FINDINGS: CTA NECK: AORTIC ARCH/ARCH VESSELS: Xyku-tw-gsifzysn atherosclerotic plaque at the arch arch and [...] head or neck. 2. No intracranial aneurysm. [place] Hemoglobin A1Con 10-10-2019 HbA1c (Bld) [Mass fraction] 111 mg/dL Normal [facility] Comment on above: Result Comment: The ADA and AACC recommend providing the estimated average glucose result to permit better patient understanding of their HBA1c result. Performed By: #### C DP, CP, LIP, TROPI, LIPRF, GLYHGB #### [employer] [address] [place] [address] [phone] Pigment Pusher: Brandon Anaya MD HbA1c (Bld) [Mass fraction] 5.5 % Normal 4.0-6.0 [facility] Comment on above: Performed By: #### C DP, CP, LIP, TROPI, LIPRF, GLYHGB #### [employer] [facility] [place], [place] [phone] Pigment Pusher: Brandon Anaya MD Glucose [Mass/Vol] 111 mg/dL [place], [place] Comment on above: The ADA and AACC rec ommend providing the estimated average glucose result to permit better patient understanding of their HBA1c result. HbA1c (Bld) [Mass fraction] 5.5 % 4 - 6 % [place] LACTIC ACID, WHOLE BLOODon 0 10-10-2019 Lactic Acid, Whole Blood 1.0 mmol/L 0.7 - 2.1 mmol/L [place] Lactic Acid,Whole Blon 10-09 Lactic Acid,Whole Bl 1.0 mmol/L Normal 0.7-2.1 [facility] Comment on above: Performed By: #### C DP, CP, LIP, TROPI, LIPRF, GLYHGB #### [employer] [address] [place], [place] [phone] Pigment Pusher: Brandon Anaya MD Magnesiumon 10-10-2019 Magnesium [Mass/Vol] 2.1 mg/dL Normal 1.6-2.6 [facility] Comment on above: Performed By: #### C DP, CP, LIP, TROPI, LIPRF, GLYHGB #### [employer] [address] [place], [place] [phone] Pigment Pusher: Brandon Anaya MD Magnesium [Mass/Vol] 2.1 mg/dL 1.6 - 2 .6 mg/dL [place] Otheron 10-10-2019 1. Subtle sclerosis subjacent to the L2 and L3 superior endplates is age-indeterminate and could represent trabecular condensation associated with acute or subacute endplate fractures. MRI of the lumbar spine is recommended for further evaluation. 2. No acute osseous abnormality of the sacrum or coccyx. 3. Osteopenia. [place], [place] Prieto, Mhpn Incoming Radiant Results From [employer] - 10/10/2019 8:19 PM EDT EXAMINATION: THREE [...] of the sacrum or coccyx. 3. Osteopenia. [place] EXAMINATION: THREE X RAY VIEWS OF [...] the urinary bladder. Atherosclerotic calcifications are present. [place] POC Glucose Fingerstickon Glucose [Mass/Vol] 159 mg/dL High 65 - 105 mg/dL [place] Interpretation and review of laboratory results Abnormal [place] Glucose [Mass/Vol] 186 mg/dL High 65 - 105 mg/dL [place] Interpretation and review of laboratory results Abnormal [place] Glucose [Mass/Vol] 135 mg/dL High 65 - 105 mg/dL [place] Interpretation and review of laboratory results Abnormal [place] Procalcitoninon 10-10-2019 Procalcitonin 0.15 ng/mL High <0.09 [facility] Comment on above: Result Comment: [...] entered into the Change in Procalcitonin Calculator ([employer].ickuxy-sar-wuyqptcrmgMyRoll) to determine the patient's Mortality Risk Prognosis In healthy neonates, plasma Procalcitonin (PCT) concentrations increase gradually after , reaching peak values at about 24 hours of age then decrease to normal values below 0.5 ng/mL by 48-72 hours of age. Performed By: #### C DP, CP, LIP, TROPI, LIPRF, GLYHGB #### [facility] [employer] [facility] [place] [phone] Pigment Pusher: Brandon Anaya MD Interpretation and review of laboratory results Abnormal [place] Procalcitonin 0.15 ng/mL High <0.09 [place] Comment on above: Suspected Sepsis: <0.50 [...] entered into the Change in Procalcitonin Calculator (wwwVictivxesyxz-zlb-iefwzzyiib.[employer]) to determine the patient's Mortality Risk Prognosis In healthy neonates, plasma Procalcitonin (PCT) concentrations increase gradually after , reaching peak values at about 24 hours of age then decrease to normal values below 0.5 ng/mL by 48-72 hours of age. Sedimentation Rateon 020 Sedimentation Rate 8 mm Normal 0-30 [facility] Comment on above: Performed By: #### C DP, CP, LIP, TROPI, LIPRF, GLYHGB #### [employer] [address] [place], [place] [id number] Pigment Pusher: Brandon Anaya MD Sed Rate 8 mm 0 - 30 mm [place] TSH w/reflex to FT4on 2019 TSH Qn 1.05 m[IU]/L Normal 0.30-5.00 [facility] Comment on above: Performed By: #### C DP, CP, LIP, TROPI, LIPRF, GLYHGB #### [employer] [address] [place], [place] [phone] Pigment Pusher: Brandon Anaya MD TSH with Reflexon 10-10-2019 TSH Qn 1.05 m[IU]/L [place] XR LUMBAR SPINE (2-3 VIEWS)o n [...] Naga Browning MD 10/10/19 Final result Normal [facility] XR SACRUM COCCYX (MIN 2 [...] Naga Browning MD 10/10/19 Final result Normal [facility] Beta Hydroxybutyrateon 10-08 Beta Hydroxybutyrate 0.09 mmol/L Normal 0.02-0.27 [facility] Comment on above: Performed By: #### T OSMAR #### [facility] [employer] [address] [place] [address] Pigment Pusher: Brandon Anaya MD Beta-Hydroxybutyrateon 10-08 Beta-Hydroxybutyrate 0.09 mmol/L 0.02 - 0.27 mmol/L [place] CBC WITH AUTO DIFFERENTIALon 10-09-2019 Basophils (Bld) [#/Vol] 0.03 10*3/uL [place] Basophils/100 WBC (Bld) 0 % 0 - 2 % [place] Differential Type NOT REPORTED [place] Eosinophils (Bld) [#/Vol] 10*3/uL [place] Eosinophils/100 WBC (Bld) 0 % Low 1 - 4 % [place] Erythrocyte distribution width (RBC) [Ratio] 14.2 % 11.8 - 14.4 % [place] Hematocrit (Bld) [Volume fraction] 44.6 % 36.3 - 47.1 % [place] Hemoglobin (Bld) [Mass/Vol] 14.2 g/dL 11.9 - 15.1 g/dL [place] Immature granulocytes (Bld) [#/Vol] 1 % High 0 [place] Immature granulocytes (Bld) [#/Vol] 0.06 10*3/uL [place] Interpretation and review of laboratory results Abnormal [place] Lymphocytes (Bld) [#/Vol] 0.97 10*3/uL Low [place] Lymphocytes/100 WBC (Bld) 13 % Low 24 - 43 % [place] MCH (RBC) [Entitic mass] 29.7 pg 25.2 - 33.5 pg [place] MCHC (RBC) [Mass/Vol] 31.8 g/dL 28.4 - 34.8 g/dL [place] MCV (RBC) [Entitic vol] 93.3 fL 82.6 - 102.9 fL [place] Monocytes (Bld) [#/Vol] 0.52 10*3/uL [place] Monocytes/100 WBC (Bld) 7 % 3 - 12 % [place] Platelet mean volume (Bld) [Entitic vol] 10.9 fL 8.1 - 13.5 fL [place] Platelets (Bld) [#/Vol] NOT REPORTED [place] Platelets (Bld) [#/Vol] 202 10*3/uL [place] RBC (Bld) [#/Vol] 4.78 10*6/uL 3.95 - 5.1 1 m/uL [place] RBC morphology finding Nom (Bld) NOT REPORTED [place] Segmented neutrophils/100 WBC (Bld) 79 % High 36 - 65 % [place] Segs Absolute 6.10 [place] WBC (Bld) [#/Vol] 0.0 10*3/uL 0.0 per 10 0 WBC [place] WBC (Bld) [#/Vol] 7.7 10*3/uL [place] WBC Morphology NOT REPORTED [place] CBC with Diffon 10-09-2019 Abs. Basophil 0.03 k/uL Normal 0.00-0.20 [facility] Comment on above: Performed By: #### C DP, CP, LIP, TROPI, LIPRF, GLYHGB #### [facility] [employer] [address] [place] [phone] Pigment Pusher: Brandon Anaya MD Abs.Imm.Granulocyte 0.06 k/uL Normal 0.00-0.30 [facility] Comment on above: Performed By: #### C DP, CP, LIP, TROPI, LIPRF, GLYHGB #### [facility] [employer] [address] [place] [address] Pigment Pusher: Brandon Anaya MD Abs.Neutrophil (Seg) 6.10 k/uL Normal 1.50-8.10 [facility] Comment on above: Performed By: #### C DP, CP, LIP, TROPI, LIPRF, GLYHGB #### [facility] [employer] [address] [place] [address] Pigment Pusher: Brandon Anaya MD Basophils/100 WBC (Bld) 0 % Normal 0-2 [facility] Comment on above: Performed By: #### C DP, CP, LIP, TROPI, LIPRF, GLYHGB #### [facility] [employer] [address] [place] [address] Pigment Pusher: Brandon Anaya MD Eosinophils (Bld) [#/Vol] 10*3/uL Normal 0.00-0.44 [facility] Comment on above: Performed By: #### C DP, CP, LIP, TROPI, LIPRF, GLYHGB #### [facility] [employer] [address] [place] [address] Pigment Pusher: Brandno Anaya MD Eosinophils/100 WBC (Bld) 0 % Low 1-4 [facility] Comment on above: Performed By: #### C DP, CP, LIP, TROPI, LIPRF, GLYHGB #### [address] [address] Pigment Pusher: Brandon Anaya MD Erythrocyte distribution width (RBC) [Ratio] 14.2 % Normal 11.8-14.4 [facility] Comment on above: Performed By: #### C DP, CP, LIP, TROPI, LIPRF, GLYHGB #### [facility] [employer] [address] [place] [address] Pigment Pusher: Brandon Anaya MD Hematocrit (Bld) [Volume fraction] 44.6 % Normal 36.3-47.1 [facility] Comment on above: Performed By: #### C DP, CP, LIP, TROPI, LIPRF, GLYHGB #### [facility] [employer] [address] [place] [address] Pigment Pusher: Brandon Anaya MD Hemoglobin (Bld) [Mass/Vol] 14.2 g/dL Normal 11.9-15.1 [facility] Comment on above: Performed By: #### C DP, CP, LIP, TROPI, LIPRF, GLYHGB #### [facility] [employer] [address] [place] [address] Pigment Pusher: Brandon Anaya MD Immature granulocytes (Bld) [#/Vol] 1 % High 0 [facility] Comment on above: Performed By: #### C DP, CP, LIP, TROPI, LIPRF, GLYHGB #### [address] [address] Pigment Pusher: Brandon Anaya MD Lymphocytes (Bld) [#/Vol] 0.97 10*3/uL Low 1.10-3.70 [facility] Comment on above: Performed By: #### C DP, CP, LIP, TROPI, LIPRF, GLYHGB #### [address] [address] Pigment Pusher: Brandon Anaya MD Lymphocytes/100 WBC (Bld) 13 % Low 24-43 [facility] Comment on above: Performed By: #### C DP, CP, LIP, TROPI, LIPRF, GLYHGB #### [address] [address] Pigment Pusher: Brandon Anaya MD MCH (RBC) [Entitic mass] 29.7 pg Normal 25.2-33.5 [facility] Comment on above: Performed By: #### C DP, CP, LIP, TROPI, LIPRF, GLYHGB #### [address] [address] Pigment Pusher: Brandon Anaya MD MCHC (RBC) [Mass/Vol] 31.8 g/dL Normal 28.4-34.8 [facility] Comment on above: Performed By: #### C DP, CP, LIP, TROPI, LIPRF, GLYHGB #### [address] [address] Pigment Pusher: Brandon Anaya MD MCV (RBC) [Entitic vol] 93.3 fL Normal 82.6-102.9 [facility] Comment on above: Performed By: #### C DP, CP, LIP, TROPI, LIPRF, GLYHGB #### [address] [address] Pigment Pusher: Brandon Anaya MD Monocytes (Bld) [#/Vol] 0.52 10*3/uL Normal 0.10-1.20 [facility] Comment on above: Performed By: #### C DP, CP, LIP, TROPI, LIPRF, GLYHGB #### [address] [address] Pigment Pusher: Brandon Anaya MD Monocytes/100 WBC (Bld) 7 % Normal 3-12 [facility] Comment on above: Performed By: #### C DP, CP, LIP, TROPI, LIPRF, GLYHGB #### [address] [address] Pigment Pusher: Brandon Anaya MD Neutrophil (Seg) 79 % High 36-65 [facility] Comment on above: Performed By: #### C DP, CP, LIP, TROPI, LIPRF, GLYHGB #### [address] [address] Pigment Pusher: Brandon Anaya MD NRBC Automated 0.0 per 100 WBC Normal 0.0 [facility] Comment on above: Performed By: #### C DP, CP, LIP, TROPI, LIPRF, GLYHGB #### [address] [address] Pigment Pusher: Brandon Anaya MD Platelet mean volume (Bld) [Entitic vol] 10.9 fL Normal 8.1-13.5 [facility] Comment on above: Performed By: #### C DP, CP, LIP, TROPI, LIPRF, GLYHGB #### [address] [address] Pigment Pusher: Brandon Anaya MD Platelets (Bld) [#/Vol] 202 10*3/uL Normal 138-453 [facility] Comment on above: Performed By: #### C DP, CP, LIP, TROPI, LIPRF, GLYHGB #### [address] [address] Pigment Pusher: Brandon Anaya MD RBC (Bld) [#/Vol] 4.78 10*6/uL Normal 3.95-5.11 [facility] Comment on above: Performed By: #### C DP, CP, LIP, TROPI, LIPRF, GLYHGB #### [address] [address] Pigment Pusher: Brandon Anaya MD WBC (Bld) [#/Vol] 7.7 10*3/uL Normal 3.5-11.3 [facility] Comment on above: Performed By: #### C DP, CP, LIP, TROPI, LIPRF, GLYHGB #### [address] [address] Pigment Pusher: Brandon Anaya MD Auto Diff Performed NOT REPORTED Normal [facility] Comment on above: Performed By: #### C DP, CP, LIP, TROPI, LIPRF, GLYHGB #### [address] [address] Pigment Pusher: Brandon Anaya MD Platelets (Bld) [#/Vol] NOT REPORTED Normal [facility] Comment on above: Performed By: #### C DP, CP, LIP, TROPI, LIPRF, GLYHGB #### [facility] [employer] [address] [place] [address] Pigment Pusher: Brandon Anaya MD RBC morphology finding Nom (Bld) NOT REPORTED Normal [facility] Comment on above: Performed By: #### C DP, CP, LIP, TROPI, LIPRF, GLYHGB #### [facility] [employer] [address] [place] [address] Pigment Pusher: Brandon Anaya MD WBC Morphology NOT REPORTED Normal [facility] Comment on above: Performed By: #### C DP, CP, LIP, TROPI, LIPRF, GLYHGB #### [facility] [employer] [address] [place] [address] Pigment Pusher: Brandon Anaya MD COVID-19, PCRon 10-09-2019 SARS-CoV-2 [place] SARS-CoV-2, PCR [place] SARS-CoV-2, Rapid Not Detected Not Detected [place], [place] Comment on above: Rapid NAAT: The [...] management decisions. Fact sheet for Healthcare Providers: https://www.fda.gov/media/087308/download Fact sheet for Patients: https://www.fda.gov/media/733098/download Methodology: Isothermal Nucleic Acid Amplification Source .NASOPHARYNGEAL SWAB [place], [place] CT CHEST PULMONARY EMBOLISM W CONTRASTon [...] Wendy Darby MD 10/09/19 Final result Normal [facility] No central or segmen rhett pulmonary embolus. No acute pulmonary process. Emphysema. [facility] [employer] EXAMINATION: CTA OF THE CHEST 10/09/2019 5:52 [...] focal consolidation. Bones: Thoracic spine degenerative changes. [facility] [employer] [place] Pri[place], Mhpn Incoming Radiant Results From [employer] - 10/09/2019 8:31 AM EDT EXAMINATION: CTA [...] pulmonary embolus. No acute pulmonary process. Emphysema. [facility], [place] Comp Metabolic Profon 2019 (cont.) Normal [facility] Comment on above: Result Comment: Aver age GFR for 70 or more years old: 75 mL/min/1.73sq m Chronic Kidney Disease: <60 mL/min/1.73sq m Kidney failure: <15 mL/min/1.73sq m eGFR calculated using average adult body mass. Additional eGFR calculator available at: http://www.[employer]/multiple_crcl_2012.htm Performed By: #### C DP, CP, LIP, TROPI, LIPRF, GLYHGB #### [facility] [employer] [address] [place] [address] Pigment Pusher: Brandon Anaya MD Albumin [Mass/Vol] 4.1 g/dL Normal 3.5-5.2 [facility] Comment on above: Performed By: #### C DP, CP, LIP, TROPI, LIPRF, GLYHGB #### [facility] [address] [place] [phone] Pigment Pusher: Brandon Anaya MD Albumin/Globulin [Mass ratio] 1.6 {ratio} Normal 1.0-2.5 [facility] Comment on above: Performed By: #### C DP, CP, LIP, TROPI, LIPRF, GLYHGB #### [facility] [employer] [address] [place] [address] Pigment Pusher: Brandon Anaya MD Alkaline Phos 90 U/L Normal 35-104 [facility] Comment on above: Performed By: #### C DP, CP, LIP, TROPI, LIPRF, GLYHGB #### [address] [address] Pigment Pusher: Brandon Anaya MD ALT [Catalytic activity/Vol] 15 U/L Normal 5-33 [facility] Comment on above: Performed By: #### C DP, CP, LIP, TROPI, LIPRF, GLYHGB #### [address] [address] Pigment Pusher: Brandon Anaya MD Anion gap [Moles/Vol] 18 mmol/L High 9-17 [facility] Comment on above: Performed By: #### C DP, CP, LIP, TROPI, LIPRF, GLYHGB #### [address] [address] Pigment Pusher: Brandon Anaya MD AST [Catalytic activity/Vol] 11 U/L Normal <32 [facility] Comment on above: Performed By: #### C DP, CP, LIP, TROPI, LIPRF, GLYHGB #### [address] [address] Pigment Pusher: Brandon Anaya MD Bilirubin Ql (U) 0.39 mg/dL Normal 0.3-1.2 [facility] Comment on above: Performed By: #### C DP, CP, LIP, TROPI, LIPRF, GLYHGB #### [address] [address] Pigment Pusher: Brandon Anaya MD Calcium [Mass/Vol] 9.5 mg/dL Normal 8.6-10.4 [facility] Comment on above: Performed By: #### C DP, CP, LIP, TROPI, LIPRF, GLYHGB #### [address] [address] Pigment Pusher: Brandon Anaya MD Chloride [Moles/Vol] 99 mmol/L Normal 98-107 [facility] Comment on above: Performed By: #### C DP, CP, LIP, TROPI, LIPRF, GLYHGB #### [address] [address] Pigment Pusher: Brandon Anaya MD CO2 [Moles/Vol] 24 mmol/L Normal 20-31 [facility] Comment on above: Performed By: #### C DP, CP, LIP, TROPI, LIPRF, GLYHGB #### [address] [address] Pigment Pusher: Brandon Anaya MD Creatinine [Mass/Vol] 0.63 mg/dL Normal 0.50-0.90 [facility] Comment on above: Performed By: #### C DP, CP, LIP, TROPI, LIPRF, GLYHGB #### [address] [address] Pigment Pusher: Brandon Anaya MD GFR, Amer >60 Normal >60 [facility] Comment on above: Performed By: #### C DP, CP, LIP, TROPI, LIPRF, GLYHGB #### [address] [address] Pigment Pusher: Brandon Anaya MD GFR,non Amer >60 Normal >60 [facility] Comment on above: Performed By: #### C DP, CP, LIP, TROPI, LIPRF, GLYHGB #### [address] [address] Pigment Pusher: Brandon Anaya MD Glucose [Mass/Vol] 208 mg/dL High 70-99 [facility] Comment on above: Performed By: #### C DP, CP, LIP, TROPI, LIPRF, GLYHGB #### [address] [address] [employer]ment Pusher: Brandon Anaya MD Potassium [Moles/Vol] 3.9 mmol/L Normal 3.7-5.3 [facility] Comment on above: Performed By: #### C DP, CP, LIP, TROPI, LIPRF, GLYHGB #### [address] [address] Pigment Pusher: Brandon Anaya MD Protein [Mass/Vol] 6.6 g/dL Normal 6.4-8.3 [facility] Comment on above: Performed By: #### C DP, CP, LIP, TROPI, LIPRF, GLYHGB #### [address] [address] Pigment Pusher: Brandon Anaya MD Sodium [Moles/Vol] 141 mmol/L Normal 135-144 [facility] Comment on above: Performed By: #### C DP, CP, LIP, TROPI, LIPRF, GLYHGB #### [address] [address] Pigment Pusher: Brandon Anaya MD Urea nitrogen [Mass/Vol] 17 mg/dL Normal 8-23 [facility] Comment on above: Performed By: #### C DP, CP, LIP, TROPI, LIPRF, GLYHGB #### [address] [address] Pigment Pusher: Brandon Anaya MD BUN/CRE Ratio NOT REPORTED Normal 9- [facility] Comment on above: Performed By: #### C DP, CP, LIP, TROPI, LIPRF, GLYHGB #### [address] [address] Pigment Pusher: Brandon Anaya MD Staging: NOT REPORTED Normal [facility] Comment on above: Performed By: #### C DP, CP, LIP, TROPI, LIPRF, GLYHGB #### [facility] [address] [place] [address] Pigment Pusher: Brandon Anaya MD Comprehensive Metabolic Pane jef 10-09-2019 Albumin [Mass/Vol] 4.1 g/dL 3.5 - 5.2 g/dL [place], [place] Albumin/Globulin [Mass ratio] 1.6 {ratio} [place] ALP [Catalytic activity/Vol] 90 U/L 35 - 104 U/L [place] ALT [Catalytic activity/Vol] 15 U/L 5 - 33 U/L [place] Anion gap [Moles/Vol] 18 mmol/L High 9 - 17 mmol/L [place] AST [Catalytic activity/Vol] 11 U/L <32 [place] Bilirubin Ql (U) 0.39 mg/dL 0.3 - 1.2 mg/dL [place] Bun/Cre Ratio NOT REPORTED [place] Calcium [Mass/Vol] 9.5 mg/dL 8.6 - 10. 4 mg/dL [place] Chloride [Moles/Vol] 99 mmol/L 98 - 10 7 mmol/L [place] CO2 [Moles/Vol] 24 mmol/L 20 - 31 mmol/L [place] Creatinine [Mass/Vol] 0.63 mg/dL 0.5 - 0.9 mg/dL [place] GFR >60 >60 mL/min [place] GFR Non- >60 >60 mL/min [place] GFR/1.73 sq M predicted among non-blacks MDRD (S/P/Bld) [Vol rate/Area] [place] Comment on above: Average GFR for 70 o r more years old: 75 mL/min/1.73sq m Chronic Kidney Disease: <60 mL/min/1.73sq m Kidney failure: <15 mL/min/1.73sq m eGFR calculated using average adult body mass. Additional eGFR calculator available at: http://www.Jovie.Vital Insight/multiple_crcl_2012.htm GFR/1.73 sq M predicted among non-blacks MDRD (S/P/Bld) [Vol rate/Area] NOT REPORTED [place] Glucose [Mass/Vol] 208 mg/dL High 70 - 99 mg/dL [place] Interpretation and review of laboratory results Abnormal [place] Potassium [Moles/Vol] 3.9 mmol/L 3.7 - 5.3 mmol/L [place] Protein [Mass/Vol] 6.6 g/dL 6.4 - 8.3 g/dL [place] Sodium [Moles/Vol] 141 mmol/L 135 - 144 mmol/L [place] Urea nitrogen [Mass/Vol] 17 mg/dL 8 - 23 mg/dL [place] EKG 12 Leadon 10-09-2019 Atrial Rate 70 BPM [place] P [place] 54 degrees [place] P-R Interval 136 ms [place] Q-T Interval 432 ms [place] QRS Duration 80 ms [place] QTc Calculation (Bazett) 466 ms [place] R [place] -9 degrees [place], [place] T [place] 3 degrees [place] Ventricular Rate 70 BPM [place] Prieto, Mhpn Incoming E kg Results From [facility] - 10/09/2019 3:25 PM EDT Normal sinus rhythm Possible Left atrial enlargement Nonspecific ST abnormality Abnormal ECG No previous ECGs available [place] Normal sinus rhythm Possible Left atrial enlargement Nonspecific ST abnormality Abnormal ECG No previous ECGs available [place] LIPASEon 10-09-2019 Lipase [Catalytic activity/Vol] 48 U/L 13 - 60 U/L [place] Lipaseon 10-09-2019 Lipase [Catalytic activity/Vol] 48 U/L Normal 13-60 [facility] Comment on above: Performed By: #### C DP, CP, LIP, TROPI, LIPRF, GLYHGB #### [facility] [place] [address] Pigment Pusher: Brandon Anaya MD Lipid Prof, Fastingon 2019 Cholesterol [Mass/Vol] 229 mg/dL High <200 [facility] Comment on above: Result Comment: Cholesterol Guidelines: <200 Desirable 200-240 Borderline >240 Undesirable Performed By: #### C DP, CP, LIP, TROPI, LIPRF, GLYHGB #### [address] [phone] Pigment Pusher: Brandon Anaya MD Cholesterol in HDL [Mass/Vol] 50 mg/dL Normal >40 [facility] Comment on above: Result Comment: HDL Guidelines: <40 Undesirable 40-59 Borderline >59 Desirable Performed By: #### C DP, CP, LIP, TROPI, LIPRF, GLYHGB #### [place] [address] Pigment Pusher: Brandon Anaya MD Cholesterol in LDL [Mass/Vol] 143 mg/dL High 0-130 [facility] Comment on above: Result Comment: LDL Guidelines: <100 Desirable 100-129 Near to/above Desirable 130-159 Borderline >159 Undesirable Direct (measured) LDL and calculated LDL are not interchangeable tests. Performed By: #### C DP, CP, LIP, TROPI, LIPRF, GLYHGB #### [address] [phone] Pigment Pusher: Brandon Anaya MD Cholesterol.total/Chol esterol in HDL [Mass ratio] 4.6 {ratio} Normal <5 [facility] Comment on above: Performed By: #### C DP, CP, LIP, TROPI, LIPRF, GLYHGB #### [address] [phone] Pigment Pusher: Brandon Anaya MD Triglyceride,Fasting 182 mg/dL High <150 [facility] Comment on above: Result Comment: Triglyceride Guidelines: <150 Desirable 150-199 Borderline 200-499 High >499 Very high Based on AHA Guidelines for fasting triglyceride, November 2011. Performed By: #### C DP, CP, LIP, TROPI, LIPRF, GLYHGB #### [address] [place] [address] Pigment Pusher: Brandon Anaya MD Cholesterol in VLDL [Mass/Vol] NOT REPORTED Normal 1-30 [facility] Comment on above: Performed By: #### C DP, CP, LIP, TROPI, LIPRF, GLYHGB #### [address] [address] Pigment Pusher: Brandon Anaya MD Lipid, Fastingon 10-09-2019 Cholesterol [Mass/Vol] 229 mg/dL High <200 [place] Comment on above: Cholesterol Guidelines: <200 Desirable 200-240 Borderline >240 Undesirable Cholesterol in HDL [Mass/Vol] 50 mg/dL >40 [place] Comment on above: HDL Guidelines: <40 Undesirable 40-59 Borderline >59 Desirable Cholesterol in LDL [Mass/Vol] 143 mg/dL High 0 - 130 mg/dL [place] Comment on above: LDL Guidelines: <100 Desirable 100-129 Near to/above Desirable 130-159 Borderline >159 Undesirable Direct (measured) LDL and calculated LDL are not interchangeable tests. Cholesterol in VLDL [Mass/Vol] NOT REPORTED High 1 - 30 mg/dL [place] Cholesterol.total/Chol esterol in HDL [Mass ratio] 4.6 {ratio} <5 [place] Interpretation and review of laboratory results Abnormal [place] Triglyceride, Fasting 182 mg/dL High <150 [place] Comment on above: Triglyceride Guidelines: <150 Desirable 150-199 Borderline 200-499 High >499 Very high Based on AHA Guidelines for fasting triglyceride, November 2011. POC Glucose Fingerstickon Glucose [Mass/Vol] 126 mg/dL High 65 - 105 mg/dL [place] Interpretation and review of laboratory results Abnormal [place] [id number] 10-09-2019 SARS-CoV-2 Normal [facility] Comment on above: Performed By: #### C OVID #### [address] [phone] Pigment Pusher: Brandon Anaya MD SARS-CoV-2,Rapid Not Detected Normal NOTDET [facility] Comment on above: Result Comment: [...] management decisions. Fact sheet for Healthcare Providers: https://www.fda.gov/media/720488/download Fact sheet for Patients: https://www.fda.gov/media/073561/download Methodology: Isothermal Nucleic Acid Amplification Performed By: #### C OVID #### [facility] [address] [place] [address] [phone] Pigment Pusher: Brandon Anaya MD SARS-CoV-2 Source .NASOPHARYNGEAL SWAB Normal [facility] Comment on above: Performed By: #### C OVID #### [facility] [address] [place] [address] [phone] Pigment Pusher: Brandon Anaya MD Troponinon 10-09-2019 Troponin I.cardiac [Mass/Vol] 10 ng/L Normal 0-14 [facility] Comment on above: Result Comment: High Sensitivity Troponin values cannot be compared with other Troponin methodologies. Patients with high levels of Biotin oral intake (i.e >5mg/day) may have falsely decreased Troponin levels. Samples collected within 8 hours of biotin intake may require additional information for diagnosis. Performed By: #### T SERGEII, #### [facility] [address] [place] [address] [phone] Pigment Pusher: Brandon Anaya MD Troponin I.cardiac [Mass/Vol] NOT REPORTED Normal <0.03 [facility] Comment on above: Performed By: #### T OSMAR #### [facility] [address] [place] [phone] Pigment Pusher: Brandon Anaya MD Troponin I.cardiac [Mass/Vol] 10 ng/L Normal 0-14 [facility] Comment on above: Result Comment: High Sensitivity Troponin values cannot be compared with other Troponin methodologies. Patients with high levels of Biotin oral intake (i.e >5mg/day) may have falsely decreased Troponin levels. Samples collected within 8 hours of biotin intake may require additional information for diagnosis. Performed By: #### C DP, CP, LIP, TROPI, LIPRF, GLYHGB #### [facility] [address] [place] [phone] Pigment Pusher: Brandon Anaya MD Troponin I.cardiac [Mass/Vol] NOT REPORTED [place] Troponin T.cardiac [Mass/Vol] NOT REPORTED <0.03 ng/mL [place] Troponin, High Sensitivity 10 ng/L 0 - 14 ng/L [place] Comment on above: High Sensitivity Troponin values cannot be compared with other Troponin methodologies. Patients with high levels of Biotin oral intake (i.e >5mg/day) may have falsely decreased Troponin levels. Samples collected within 8 hours of biotin intake may require additional information for diagnosis. Troponin I.cardiac [Mass/Vol] NOT REPORTED Normal <0.03 [facility] Comment on above: Performed By: #### C DP, CP, LIP, TROPI, LIPRF, GLYHGB #### [facility] [place], [place] [phone] Pigment Pusher: Brandon Anaya MD Troponin I.cardiac [Mass/Vol] NOT REPORTED [place] Troponin T.cardiac [Mass/Vol] NOT REPORTED <0.03 ng/mL [place] Troponin, High Sensitivity 10 ng/L 0 - 14 ng/L [place] Comment on above: High Sensitivity Troponin values cannot be compared with other Troponin methodologies. Patients with high levels of Biotin oral intake (i.e >5mg/day) may have falsely decreased Troponin levels. Samples collected within 8 hours of biotin intake may require additional information for diagnosis. UA w/Reflex Cultureon 2019 Acetoacetic Acid,Ur TRACE Abnormal NEG [facility] Comment on above: Performed By: #### C DP, CP, LIP, TROPI, LIPRF, GLYHGB #### [facility] [address] [place] [phone] Pigment Pusher: Brandon Anaya MD Bilirubin, SemiQt,Ur Negative Normal NEG [facility] Comment on above: Performed By: #### C DP, CP, LIP, TROPI, LIPRF, GLYHGB #### [facility] [employer] [address] [place] [phone] Pigment Pusher: Brandon Anaya MD Color (U) YELLOW Normal YEL [facility] Comment on above: Performed By: #### C DP, CP, LIP, TROPI, LIPRF, GLYHGB #### [facility] [address] [place] [phone] Pigment Pusher: Brandon Anaya MD Glucose Ql (U) Negative Normal [facility] Comment on above: Performed By: #### C DP, CP, LIP, TROPI, LIPRF, GLYHGB #### [facility] [address] [place] [phone] Pigment Pusher: Brandon Anaya MD Hemoglobin, Ur Negative Normal NEG [facility] Comment on above: Performed By: #### C DP, CP, LIP, TROPI, LIPRF, GLYHGB #### [facility] [address] [place] [phone] Pigment Pusher: Brandon Anaya MD Leukocyte esterase Test strip Ql (U) Negative Normal NEG [facility] Comment on above: Performed By: #### C DP, CP, LIP, TROPI, LIPRF, GLYHGB #### [facility] [employer] [address] [place] [phone] Pigment Pusher: Brandon Anaya MD Nitrite,Ur Negative Normal NEG [facility] Comment on above: Performed By: #### C DP, CP, LIP, TROPI, LIPRF, GLYHGB #### [address] [address] Pigment Pusher: Brandon Anaya MD pH (U) 5.5 [pH] Normal 5.0-8.0 [facility] Comment on above: Performed By: #### C DP, CP, LIP, TROPI, LIPRF, GLYHGB #### [address] [address] Pigment Pusher: Brandon Anaya MD Protein Ql (U) 1+ Abnormal NEG [facility] Comment on above: Performed By: #### C DP, CP, LIP, TROPI, LIPRF, GLYHGB #### [address] [address] Pigment Pusher: Brandon Anaya MD Specific gravity (U) [Rel density] 1.086 High 1.005-1.030 [facility] Comment on above: Performed By: #### C DP, CP, LIP, TROPI, LIPRF, GLYHGB #### [address] [address] Pigment Pusher: Brandon Anaya MD Turbidity CLEAR Normal CLEAR [facility] Comment on above: Performed By: #### C DP, CP, LIP, TROPI, LIPRF, GLYHGB #### [address] [address] Pigment Pusher: Brandon Anaya MD Urobilinogen,Ur Normal Normal NORM [facility] Comment on above: Performed By: #### C DP, CP, LIP, TROPI, LIPRF, GLYHGB #### [address] [place] [address] Pigment Pusher: Brandon Anaya MD Comment NOT REPORTED Normal [facility] Comment on above: Performed By: #### C DP, CP, LIP, TROPI, LIPRF, GLYHGB #### [facility] [address] [place] [address] Pigment Pusher: Brandon Anaya MD URINALYSIS, MICROon 10-09-19 20 Amorphous, UA NOT REPORTED None [facility], [place] Bacteria, UA NOT REPORTED None [facility], [place] Casts UA NOT REPORTED [place] Crystals, UA NOT REPORTED None /HPF [place] Epithelial Cells UA 10 TO 20 [place] Mucus, UA NOT REPORTED None [place] Other Observations UA NOT REPORTED NOT REQ. M [place], [place] RBC (U) [#/Vol] 0 TO 2 [place] Renal Epithelial, UA NOT REPORTED 0 /HPF [place] Trichomonas, UA NOT REPORTED None [place] WBC, UA 0 TO 2 [place] Yeast, UA NOT REPORTED None [place] ABDOMEN LIMITEDon 020 US ABDOMEN LIMITED EXAMINATION: RIGHT UPPER QUADRANT ULTRASOUND 10/09/2019 3:35 pm COMPARISON: None. HISTORY: ORDERING SYSTEM PROVIDED HISTORY: RUQ and epigastric pain, r/o cholecystitis, gall bladder, pancreas admitted attorneys PROVIDED HISTORY: RUQ and epigastric pain, r/o [...] Fransisco Ochoa MD 10/09/19 Final result Normal [facility] US ABDOMEN LIMITED Specify o rgan? LIVER, GALLBLADDER, PANCREASon 10-09-2019 EXAMINATION: RIGHT U PPER QUADRANT ULTRASOUND 10/09/2019 3:35 pm COMPARISON: None. HISTORY: ORDERING SYSTEM PROVIDED HISTORY: RUQ and epigastric pain, r/o cholecystitis, gall bladder, pancreas admitted attorneys PROVIDED HISTORY: RUQ and epigastric pain, r/o [...] No evidence of right upper quadrant ascites. [facility] [place] Unremarkable right u pper quadrant ultrasound. [place], [place] Prieto, Mhpn Incoming Radiant Results From [employer] - 10/09/2019 4:01 PM EDT EXAMINATION: RIGHT UPPER QUADRANT ULTRASOUND 10/09/2019 3:35 pm COMPARISON: None. HISTORY: ORDERING SYSTEM PROVIDED HISTORY: RUQ and epigastric pain, r/o cholecystitis, gall bladder, pancreas admitted attorneys PROVIDED HISTORY: RUQ and epigastric pain, r/o [...] ascites. IMPRESSION: Unremarkable right upper quadrant ultrasound. [place] Urinalysis Reflex to Culture on 10-09-2019 Bilirubin Urine Negative NEGATIVE [place] Color, UA YELLOW YELLOW [place] Glucose, Ur Negative NEGATIVE [place] Interpretation and review of laboratory results Abnormal [place] Ketones Ql (U) TRACE Abnormal NEGATIVE [place] Leukocyte esterase Test strip Ql (U) Negative NEGATIVE [place] Nitrite, Urine Negative NEGATIVE [place] pH, UA 5.5 [place] Protein (U) [Mass/Vol] 1+ Abnormal NEGATIVE [place] Specific [place], UA 1.086 High [place] Turbidity UA CLEAR CLEAR [place] Urinalysis Comments NOT REPORTED [place] Urine Hgb Negative NEGATIVE [place] Urobilinogen, Urine Normal Normal [place] Urinalysis,Microon 0 ----- Normal [facility] Comment on above: Performed By: #### C DP, CP, LIP, TROPI, LIPRF, GLYHGB #### [employer] [address] [place] [address] [phone] Pigment Pusher: Brandon Anaya MD Epithelial cells LM.HPF (Urine sed) [#/Area] 10 TO [address] Comment on above: Performed By: #### C DP, CP, LIP, TROPI, LIPRF, GLYHGB #### [employer] [address] [place] [address] [phone] Pigment Pusher: Brandon Anaya MD RBC (U) [#/Vol] 0 TO 2 Normal 0-2 [facility] Comment on above: Performed By: #### C DP, CP, LIP, TROPI, LIPRF, GLYHGB #### [employer] [address] [place] [address] [phone] Pigment Pusher: Brandon Anaya MD WBC (U) [#/Vol] 0 TO 2 Normal 05 [facility] Comment on above: Performed By: #### C DP, CP, LIP, TROPI, LIPRF, GLYHGB #### [facility] [employer] [address] [place] [phone] Pigment Pusher: Brandon Anaya MD Amorphous sediment LM Ql (Urine sed) NOT REPORTED Normal NONE [facility] Comment on above: Performed By: #### C DP, CP, LIP, TROPI, LIPRF, GLYHGB #### [address] [address] Pigment Pusher: Brandon Anaya MD Bacteria LM.HPF (Urine sed) [#/Area] NOT REPORTED Normal NONE [facility] Comment on above: Performed By: #### C DP, CP, LIP, TROPI, LIPRF, GLYHGB #### [address] [address] Pigment Pusher: Brandon Anaya MD Casts LM.LPF (Urine sed) [#/Area] NOT REPORTED Normal 0-2 [facility] Comment on above: Performed By: #### C DP, CP, LIP, TROPI, LIPRF, GLYHGB #### [address] [address] Pigment Pusher: Brandon Anaya MD Crystals LM Nom (Urine sed) NOT REPORTED Normal NONE [facility] Comment on above: Performed By: #### C DP, CP, LIP, TROPI, LIPRF, GLYHGB #### [address] [address] Pigment Pusher: Brandon Anaya MD Epithelial, Renal NOT REPORTED Normal 0 [facility] Comment on above: Performed By: #### C DP, CP, LIP, TROPI, LIPRF, GLYHGB #### [facility] [employer] [address] [place] [phone] Pigment Pusher: Brandon Anaya MD Mucus Strands NOT REPORTED Normal NONE [facility] Comment on above: Performed By: #### C DP, CP, LIP, TROPI, LIPRF, GLYHGB #### [facility] [address] [place] [address] Pigment Pusher: Brandon Anaya MD Other Observations NOT REPORTED Normal NREQ [facility] Comment on above: Performed By: #### C DP, CP, LIP, TROPI, LIPRF, GLYHGB #### [facility] [address] [place] [address] Pigment Pusher: Brandon Anaya MD Trichomonas NOT REPORTED Normal NONE [facility] Comment on above: Performed By: #### C DP, CP, LIP, TROPI, LIPRF, GLYHGB #### [address] [address] Pigment Pusher: Brandon Anaya MD Yeast LM Ql (Urine sed) NOT REPORTED Normal NONE [facility] Comment on above: Performed By: #### C DP, CP, LIP, TROPI, LIPRF, GLYHGB #### [address] [address] Pigment Pusher: Brandon Anaya MD XR ABDOMEN (KUB) (SINGLE [...] Naga Browning MD 10/09/19 Final result Normal [facility] No evidence of bowel obstruction. [facility], [place] EXAMINATION: ONE SUP INE XRAY VIEW(S) OF THE ABDOMEN 10/09/2019 7:17 pm COMPARISON: None. HISTORY: ORDERING SYSTEM PROVIDED HISTORY: r/o SBO TECHNOLOGIST PROVIDED HISTORY: r/o SBO Reason for Exam: port Supine FINDINGS: Nonspecific, nonobstructive bowel gas pattern with paucity of bowel gas. Atherosclerotic calcifications. Retained contrast in the urinary bladder. No acute osseous abnormality. [facility] Prieto, Mhpn Incoming Radiant Results From [employer] [facility] - 10/09/2019 7:35 PM EDT EXAMINATION: ONE [...] abnormality. IMPRESSION: No evidence of bowel obstruction. [facility] Aldosteroneon 07-02-2017 Aldosterone 4.8 ng/dL Normal [facility] Comment on above: Result Comment: (NOT [...] gender-specific referenceintervals for this test in the [employer] [facility] Test Directory([place]).Performed by [facility],[address] [place] [address] yxm.[place], Nik Rosas MD, Lab. DirectorPerformed at [facility] [address] [place] [address] Performed By: #### C ORTI ####[address] [id number] #### AALD, AREN ####[facility] [place] [address] Renin Activityon 07-02-2017 Renin Activity 0.1 ng/mL/hr Normal [facility] Comment on above: Result Comment: (NOT E)INTERPRETIVE INFORMATION: Renin ActivityAdult, Normal sodium diet: Supine ................. 0.2-1.6 ng/mL/hr Upright ................ 0.5-4.0 ng/mL/hrChildren, Normal sodium diet, Supine: (1-7 days) ..... [...] activity when angiotensinogen isdecreased.See Compliance Statement D: [email or web address].Vital Insight/CSPerformed by [facility] [place] [address] olg.[place], Nik Rosas MD, Lab. DirectorPerformed at [address] [address] Performed By: #### C ORTI ####[facility] [place] [address] #### AALD, AREN ####[address] [address] Basic Metab w/rfx MGon 06-29 (cont.) Normal [facility] Comment on above: Result Comment: Aver age GFR for 70 or more years old: 75 mL/min/1.73sq mChronic Kidney Disease: <60 mL/min/1.73sq mKidney failure: <15 mL/min/1.73sq meGFR calculated using average adult body mass. Additional eGFR calculator available at:http://www.[employer]/multiple_crcl_2012.htmPerformed at [address] [address] Performed By: #### C DP, BMPX, TROPI ####[id number] [place] [address] Anion gap 10 mmol/L Normal 9-17 [facility] Comment on above: Performed By: #### C DP, BMPX, TROPI ####[address] [address] Calcium 9.1 mg/dL Normal 8.6-10.4 [facility] Comment on above: Performed By: #### C DP, BMPX, TROPI ####[address] [address] Chloride 106 mmol/L Normal 98-107 [facility] Comment on above: Performed By: #### C DP, BMPX, TROPI ####[facility] [place] [address] CO2 26 mmol/L Normal 20-31 [facility] Comment on above: Performed By: #### C DP, BMPX, TROPI ####[facility] [place] [address] Creatinine 0.66 mg/dL Normal 0.50-0.90 [facility] Comment on above: Performed By: #### C DP, BMPX, TROPI ####[facility] [place], [place] [address]er[address] [place] [address] eGFR (non-black) mL/min/{1.73_m2} Normal >[address] [facility] Comment on above: Performed By: #### C DP, BMPX, TROPI ####[facility] [place], [place] [address]e [facility] [place] [address] Glucose mass conc 104 mg/dL High 70-99 [facility] Comment on above: Performed By: #### C DP, BMPX, TROPI ####[facility] [place] [address].[place] [address] Potassium molar conc 4.1 mmol/L Normal 3.7-5.3 [facility] Comment on above: Performed By: #### C DP, BMPX, TROPI ####[facility] [place], [place] [address]er[address] [place] [address] Sodium 142 mmol/L Normal 135-144 [facility] Comment on above: Performed By: #### C DP, BMPX, TROPI ####[facility] [place], [place] [address]er[address] [place] [address] Urea nitrogen 13 mg/dL Normal 8-23 [facility] Comment on above: Performed By: #### C DP, BMPX, TROPI ####[facility] [place], [place] [id number] BUN/CRE Ratio NOT REPORTED Normal 9-20 [facility] Comment on above: Performed By: #### C DP, BMPX, TROPI ####[address] [address] Staging: NOT REPORTED Normal [facility] Comment on above: Performed By: #### C DP, BMPX, TROPI ####[address] [address] CBC with Diffon - Abs. Basophil 0.00 k/uL Normal 0.0-0.2 [facility] Comment on above: Result Comment: Perf ormed at [facility] [address] [place] [address] Performed By: #### C DP, BMPX, TROPI ####[address] [address] Abs.Neutrophil (Seg) 3.80 k/uL Normal 1.3-9.1 [facility] Comment on above: Performed By: #### C DP, BMPX, TROPI ####[address] [address] Basophils/100 WBC Auto (Bld) 1 % Normal 0-2 [facility] Comment on above: Performed By: #### C DP, BMPX, TROPI ####[address] [address] Eosinophils 0.20 10*3/uL Normal 0.0-0.4 [facility] Comment on above: Performed By: #### C DP, BMPX, TROPI ####[place] [address] [facility] [place] [address] Eosinophils/100 leukocytes 2 % Normal 0-4 [facility] Comment on above: Performed By: #### C DP, BMPX, TROPI ####[facility] [place] [address].[place] [address] Erythrocyte distribution width Auto Ratio (RBC) 14.5 % Normal 11.5-14.9 [facility] Comment on above: Performed By: #### C DP, BMPX, TROPI ####[facility] [place] [address] Erythrocytes (RBC) 4.36 10*6/uL Normal 4.0-5.2 [facility] Comment on above: Performed By: #### C DP, BMPX, TROPI ####[facility] [place] [address] Hematocrit (HCT) 38.3 % Normal 36-46 [facility] Comment on above: Performed By: #### C DP, BMPX, TROPI ####[address] [address] Hemoglobin mass conc (Bld) 12.9 g/dL Normal 12.0-16.0 [facility] Comment on above: Performed By: #### C DP, BMPX, TROPI ####[address] [address] Lymphocytes 2.20 10*3/uL Normal 1.0-4.8 [facility] Comment on above: Performed By: #### C DP, BMPX, TROPI ####[address] [address] Lymphocytes/100 leukocytes 32 % Normal 24-44 [facility] Comment on above: Performed By: #### C DP, BMPX, TROPI ####[facility] [place] [address] MCH 29.5 pg Normal 26-34 [facility] Comment on above: Performed By: #### C DP, BMPX, TROPI ####[facility] [place], [place] [address]er[address] [place] [address] MCHC mass conc (RBC) 33.6 g/dL Normal 31-37 [facility] Comment on above: Performed By: #### C DP, BMPX, TROPI ####[address] [address] MCV 87.8 fL Normal 80-100 [facility] Comment on above: Performed By: #### C DP, BMPX, TROPI ####[address] [address] Monocytes 0.50 10*3/uL Normal 0.1-1.3 [facility] Comment on above: Performed By: #### C DP, BMPX, TROPI ####[address] [address] Monocytes/100 leukocytes 8 % High 1-7 [facility] Comment on above: Performed By: #### C DP, BMPX, TROPI ####[facility] [place] [address].[place] [address] Neutrophil (Seg) 57 % Normal 36-66 [facility] Comment on above: Performed By: #### C DP, BMPX, TROPI ####[address] [address] Platelet mean volume (PMV) 8.5 fL Normal 6.0-12.0 [facility] Comment on above: Performed By: #### C DP, BMPX, TROPI ####[address] [address] Platelets 219 10*3/uL Normal 150-450 [facility] Comment on above: Performed By: #### C DP, BMPX, TROPI ####[facility] [place] [address] WBC (Leukocytes) 6.7 10*3/uL Normal 3.5-11.0 [facility] Comment on above: Performed By: #### C DP, BMPX, TROPI ####[facility] [place] [address].[place] [address] Auto Diff Performed NOT REPORTED Normal [facility] Comment on above: Performed By: #### C DP, BMPX, TROPI ####[facility] [place], [place] [address] [place] [address] Erythrocyte morphology NOT REPORTED Normal [facility] Comment on above: Performed By: #### C DP, BMPX, TROPI ####[facility] [place] [address] Erythrocytes (RBC) NOT REPORTED Normal [facility] Comment on above: Performed By: #### C DP, BMPX, TROPI ####[facility] [place] [address].[place] [address] Granulocytes/100 WBC (Bld) NOT REPORTED Normal 0.00-0.30 [facility] Comment on above: Performed By: #### C DP, BMPX, TROPI ####[facility] [place] [address].[place] [address] Immature granulocytes #/vol (Bld) NOT REPORTED Normal 0 [facility] Comment on above: Performed By: #### C DP, BMPX, TROPI ####[facility] [place], [place] [address] [address] Platelets NOT REPORTED Normal [facility] Comment on above: Performed By: #### C DP, BMPX, TROPI ####[address] [place] [address] WBC Morphology NOT REPORTED Normal [facility] Comment on above: Performed By: #### C DP, BMPX, TROPI ####[address] [address] Troponinon 06-29-2017 Troponin I.cardiac mass conc Normal [facility] Comment on above: Result Comment: Refe rence Range: <0.03 Within reference range. 0.03-0.09 Possible myocardial damage.Repeat at appropriate intervals to rule out chronic elevation. >= 0.10 Indicative of myocardial damage.Patients with high levels of Biotin oral intake (i.e >5mg/day) may have falsely decreased Troponin T levels. Samples collected within 8 hours of biotin intake may require additional information for diagnosis.Performed at [address] [address] Performed By: #### C DP, BMPX, TROPI ####[address] [address] Troponin T.cardiac mass conc ug/L Normal <0.03 [facility] Comment on above: Result Comment: Trop onin T results cannot be compared to Troponin-I results. Performed By: #### C DP, BMPX, TROPI ####[address] [address] Troponin I.cardiac mass conc Normal [facility] Comment on above: Result Comment: Refe rence Range: <0.03 Within reference range. 0.03-0.09 Possible myocardial damage.Repeat at appropriate intervals to rule out chronic elevation. >= 0.10 Indicative of myocardial damage.Patients with high levels of Biotin oral intake (i.e >5mg/day) may have falsely decreased Troponin T levels. Samples collected within 8 hours of biotin intake may require additional information for diagnosis.Performed at [address] [place] [address] Performed By: #### T ROPI ####[facility] [facility] [address] Troponin T.cardiac mass conc ug/L Normal <0.03 [facility] Comment on above: Result Comment: Trop onin T results cannot be compared to Troponin-I results. Performed By: #### T ROPI ####[facility] [facility] [place] [address] XR CHEST (2 VW)on 06-29-2017 XR CHEST [...] by:FABIANA Oliverigned by:Zaire Dominguez MD//18Final result Normal [facility] Basic Metab w/rfx MGon 06-28 (cont.) Normal [facility] Comment on above: Result Comment: Aver age GFR for 70 or more years old: 75 mL/min/1.73sq mChronic Kidney Disease: <60 mL/min/1.73sq mKidney failure: <15 mL/min/1.73sq meGFR calculated using average adult body mass. Additional eGFR calculator available at:http://www.Jovie.Vital Insight/multiple_crcl_2011.htmPerformed at [place] [address] [place] [address] Performed By: #### C DP, BMPX ####[address] [address] Anion gap 13 mmol/L Normal 9-17 [facility] Comment on above: Performed By: #### C DP, BMPX ####[address] [address] Calcium 8.7 mg/dL Normal 8.6-10.4 [facility] Comment on above: Performed By: #### C DP, BMPX ####[address] [address] Chloride 106 mmol/L Normal 98-107 [facility] Comment on above: Performed By: #### C DP, BMPX ####[address] [address] CO2 22 mmol/L Normal 20-31 [facility] Comment on above: Performed By: #### C DP, BMPX ####[address] [address] Creatinine 0.53 mg/dL Normal 0.50-0.90 [facility] Comment on above: Performed By: #### C DP, BMPX ####[address] [address] eGFR (non-black) mL/min/{1.73_m2} Normal >[address] [facility] Comment on above: Performed By: #### C DP, BMPX ####[address] [address] Glucose mass conc 168 mg/dL High 70-99 [facility] Comment on above: Performed By: #### C DP, BMPX ####[address] [place] [address] Potassium molar conc 3.7 mmol/L Normal 3.7-5.3 [facility] Comment on above: Performed By: #### C DP, BMPX ####[facility] [place] [address] Sodium 141 mmol/L Normal 135-144 [facility] Comment on above: Performed By: #### C DP, BMPX ####[facility] [place] [address] Urea nitrogen 11 mg/dL Normal 8-23 [facility] Comment on above: Performed By: #### C DP, BMPX ####[facility] [place] [address] BUN/CRE Ratio NOT REPORTED Normal 9-20 [facility] Comment on above: Performed By: #### C DP, BMPX ####[facility] [place] [address] Staging: NOT REPORTED Normal [facility] Comment on above: Performed By: #### C DP, BMPX ####[facility] [place] [address] Basic Metabolic Profon 06-28 (cont.) Normal [facility] Comment on above: Result Comment: Aver age GFR for 70 or more years old: 75 mL/min/1.73sq mChronic Kidney Disease: <60 mL/min/1.73sq mKidney failure: <15 mL/min/1.73sq meGFR calculated using average adult body mass. Additional eGFR calculator available at:http://www.Jovie.Vital Insight/multiple_crcl_2012.htmPerformed at [facility] [address] [place] [address] Performed By: #### C DP, BMP, TROPI, TSHX ####[facility] [facility] [place] [address] Anion gap 13 mmol/L Normal 9-17 [facility] Comment on above: Performed By: #### C DP, BMP, TROPI, TSHX ####[facility] [place] [address].[place] [address] Calcium 9.2 mg/dL Normal 8.6-10.4 [facility] Comment on above: Performed By: #### C DP, BMP, TROPI, TSHX ####[facility] [place] [address].[place] [address] Chloride 102 mmol/L Normal 98-107 [facility] Comment on above: Performed By: #### C DP, BMP, TROPI, TSHX ####[facility] [place] [address].[place] [address] CO2 26 mmol/L Normal 20-31 [facility] Comment on above: Performed By: #### C DP, BMP, TROPI, TSHX ####[facility] [place] [address].[place] [address] Creatinine 0.61 mg/dL Normal 0.50-0.90 [facility] Comment on above: Performed By: #### C DP, BMP, TROPI, TSHX ####[address] [address] eGFR (non-black) mL/min/{1.73_m2} Normal >[address] [facility] Comment on above: Performed By: #### C DP, BMP, TROPI, TSHX ####[address] [address] Glucose mass conc 108 mg/dL High 70-99 [facility] Comment on above: Performed By: #### C DP, BMP, TROPI, TSHX ####[facility] [address] [place] [address] Potassium molar conc 4.7 mmol/L Normal 3.7-5.3 [facility] Comment on above: Performed By: #### C DP, BMP, TROPI, TSHX ####[facility] [place], [place] [address] [place] [address] Sodium 141 mmol/L Normal 135-144 [facility] Comment on above: Performed By: #### C DP, BMP, TROPI, TSHX ####[address] [place] [address] Urea nitrogen 16 mg/dL Normal 8-23 [facility] Comment on above: Performed By: #### C DP, BMP, TROPI, TSHX ####[address] [place] [address] BUN/CRE Ratio NOT REPORTED Normal 9- [facility] Comment on above: Performed By: #### C DP, BMP, TROPI, TSHX ####[address] [place] [address] Staging: NOT REPORTED Normal [facility] Comment on above: Performed By: #### C DP, BMP, TROPI, TSHX ####[address] [address] CBC with Diffon 06-28-2017 Abs. Basophil 0.00 k/uL Normal 0.0-0.2 [facility] Comment on above: Result Comment: Perf ormed at [facility] [address] [place] [address] Performed By: #### C DP, BMPX ####[address] [place] [address] Abs.Neutrophil (Seg) 5.50 k/uL Normal 1.3-9.1 [facility] Comment on above: Performed By: #### C DP, BMPX ####[facility] [facility] [place] [address] Basophils/100 WBC Auto (Bld) 1 % Normal 0-2 [facility] Comment on above: Performed By: #### C DP, BMPX ####[facility] [place] [address] Eosinophils 0.10 10*3/uL Normal 0.0-0.4 [facility] Comment on above: Performed By: #### C DP, BMPX ####[address] [address] Eosinophils/100 leukocytes 2 % Normal 0-4 [facility] Comment on above: Performed By: #### C DP, BMPX ####[address] [address] Erythrocyte distribution width Auto Ratio (RBC) 14.8 % Normal 11.5-14.9 [facility] Comment on above: Performed By: #### C DP, BMPX ####[address] [address] Erythrocytes (RBC) 4.47 10*6/uL Normal 4.0-5.2 [facility] Comment on above: Performed By: #### C DP, BMPX ####[address] [address] Hematocrit (HCT) 39.8 % Normal 36-46 [facility] Comment on above: Performed By: #### C DP, BMPX ####[address] [address] Hemoglobin mass conc (Bld) 13.3 g/dL Normal 12.0-16.0 [facility] Comment on above: Performed By: #### C DP, BMPX ####[facility] [facility] [address] Lymphocytes 1.90 10*3/uL Normal 1.0-4.8 [facility] Comment on above: Performed By: #### C DP, BMPX ####[facility] [facility] [place] [address] Lymphocytes/100 leukocytes 23 % Low 24-44 [facility] Comment on above: Performed By: #### C DP, BMPX ####[facility] [place] [address] MCH 29.7 pg Normal 26-34 [facility] Comment on above: Performed By: #### C DP, BMPX ####[facility] [place] [address] MCHC mass conc (RBC) 33.3 g/dL Normal 31-37 [facility] Comment on above: Performed By: #### C DP, BMPX ####[facility] [place] [address] MCV 89.1 fL Normal 80-100 [facility] Comment on above: Performed By: #### C DP, BMPX ####[facility] [facility] [place] [address] Monocytes 0.50 10*3/uL Normal 0.1-1.3 [facility] Comment on above: Performed By: #### C DP, BMPX ####[facility] [place] [address] Monocytes/100 leukocytes 6 % Normal 1-7 [facility] Comment on above: Performed By: #### C DP, BMPX ####[facility] [place] [address] Neutrophil (Seg) 68 % High 36-66 [facility] Comment on above: Performed By: #### C DP, BMPX ####[address] [address] Platelet mean volume (PMV) 8.6 fL Normal 6.0-12.0 [facility] Comment on above: Performed By: #### C DP, BMPX ####[address] [address] Platelets 238 10*3/uL Normal 150-450 [facility] Comment on above: Performed By: #### C DP, BMPX ####[address] [address] WBC (Leukocytes) 8.0 10*3/uL Normal 3.5-11.0 [facility] Comment on above: Performed By: #### C DP, BMPX ####[address] [address] Auto Diff Performed NOT REPORTED Normal [facility] Comment on above: Performed By: #### C DP, BMPX ####[address] [address] Erythrocyte morphology NOT REPORTED Normal [facility] Comment on above: Performed By: #### C DP, BMPX ####[address] [address] Erythrocytes (RBC) NOT REPORTED Normal [facility] Comment on above: Performed By: #### C DP, BMPX ####[address] [address] Granulocytes/100 WBC (Bld) NOT REPORTED Normal 0.00-0.30 [facility] Comment on above: Performed By: #### C DP, BMPX ####[address] [place] [address] Immature granulocytes #/vol (Bld) NOT REPORTED Normal 0 [facility] Comment on above: Performed By: #### C DP, BMPX ####[facility] [place] [address] Platelets NOT REPORTED Normal [facility] Comment on above: Performed By: #### C DP, BMPX ####[address] [address] WBC Morphology NOT REPORTED Normal [facility] Comment on above: Performed By: #### C DP, BMPX ####[address] [address] Abs. Basophil 0.10 k/uL Normal 0.0-0.2 [facility] Comment on above: Result Comment: Perf ormed at [facility] [address] [place] [address] Performed By: #### C DP, BMP, TROPI, TSHX ####[address] [address] Abs.Neutrophil (Seg) 4.20 k/uL Normal 1.3-9.1 [facility] Comment on above: Performed By: #### C DP, BMP, TROPI, TSHX ####[address] [address] Basophils/100 WBC Auto (Bld) 1 % Normal 0-2 [facility] Comment on above: Performed By: #### C DP, BMP, TROPI, TSHX ####[address] [address] Eosinophils 0.20 10*3/uL Normal 0.0-0.4 [facility] Comment on above: Performed By: #### C DP, BMP, TROPI, TSHX ####[facility] [place] [address].[place] [address] Eosinophils/100 leukocytes 2 % Normal 0-4 [facility] Comment on above: Performed By: #### C DP, BMP, TROPI, TSHX ####[facility] [place] [address].[place] [address] Erythrocyte distribution width Auto Ratio (RBC) 14.7 % Normal 11.5-14.9 [facility] Comment on above: Performed By: #### C DP, BMP, TROPI, TSHX ####[address] [place] [address] Erythrocytes (RBC) 4.38 10*6/uL Normal 4.0-5.2 [facility] Comment on above: Performed By: #### C DP, BMP, TROPI, TSHX ####[address] [place] [address] Hematocrit (HCT) 38.7 % Normal 36-46 [facility] Comment on above: Performed By: #### C DP, BMP, TROPI, TSHX ####[address] [place] [address] Hemoglobin mass conc (Bld) 12.9 g/dL Normal 12.0-16.0 [facility] Comment on above: Performed By: #### C DP, BMP, TROPI, TSHX ####[facility] [place] [address].[place] [address] Lymphocytes 2.60 10*3/uL Normal 1.0-4.8 [facility] Comment on above: Performed By: #### C DP, BMP, TROPI, TSHX ####[address] [place] [address] Lymphocytes/100 leukocytes 34 % Normal 24-44 [facility] Comment on above: Performed By: #### C DP, BMP, TROPI, TSHX ####[facility] [place] [address] MCH 29.6 pg Normal 26-34 [facility] Comment on above: Performed By: #### C DP, BMP, TROPI, TSHX ####[address] [address] MCHC mass conc (RBC) 33.4 g/dL Normal 31-37 [facility] Comment on above: Performed By: #### C DP, BMP, TROPI, TSHX ####[address] [address] MCV 88.4 fL Normal 80-100 [facility] Comment on above: Performed By: #### C DP, BMP, TROPI, TSHX ####[address] [address] Monocytes 0.60 10*3/uL Normal 0.1-1.3 [facility] Comment on above: Performed By: #### C DP, BMP, TROPI, TSHX ####[address] [address] Monocytes/100 leukocytes 8 % High 1-7 [facility] Comment on above: Performed By: #### C DP, BMP, TROPI, TSHX ####[address] [address] Neutrophil (Seg) 55 % Normal 36-66 [facility] Comment on above: Performed By: #### C DP, BMP, TROPI, TSHX ####[address] [address] Platelet mean volume (PMV) 8.6 fL Normal 6.0-12.0 [facility] Comment on above: Performed By: #### C DP, BMP, TROPI, TSHX ####[address] [address] Platelets 229 10*3/uL Normal 150-450 [facility] Comment on above: Performed By: #### C DP, BMP, TROPI, TSHX ####[address] [address] WBC (Leukocytes) 7.7 10*3/uL Normal 3.5-11.0 [facility] Comment on above: Performed By: #### C DP, BMP, TROPI, TSHX ####[address] [address] Auto Diff Performed NOT REPORTED Normal [facility] Comment on above: Performed By: #### C DP, BMP, TROPI, TSHX ####[address] [address] Erythrocyte morphology NOT REPORTED Normal [facility] Comment on above: Performed By: #### C DP, BMP, TROPI, TSHX ####[address] [address] Erythrocytes (RBC) NOT REPORTED Normal [facility] Comment on above: Performed By: #### C DP, BMP, TROPI, TSHX ####[address] [address] Granulocytes/100 WBC (Bld) NOT REPORTED Normal 0.00-0.30 [facility] Comment on above: Performed By: #### C DP, BMP, TROPI, TSHX ####[address] [address] Immature granulocytes #/vol (Bld) NOT REPORTED Normal 0 [facility] Comment on above: Performed By: #### C DP, BMP, TROPI, TSHX ####[facility] [place] [address] Platelets NOT REPORTED Normal [facility] Comment on above: Performed By: #### C DP, BMP, TROPI, TSHX ####[address] [address] WBC Morphology NOT REPORTED Normal [facility] Comment on above: Performed By: #### C DP, BMP, TROPI, TSHX ####[address] [address] Cortisolon 06-28-2017 Cortisol 4.7 ug/dL Normal 2.7-18.4 [facility] Comment on above: Result Comment: Lukasz isol Reference Range: AM 6.0-18.4 PM 2.7-10.5Performed at [address] [address] Performed By: #### C ORTI ####[address] [address] #### AAANDRSE, AREN ####[address] [address] Collection Info. NOT REPORTED Normal [facility] Comment on above: Performed By: #### C ORTI ####[address] [address] #### AALD, AREN ####[address] [address] Renin Activityon 06-28-2017 Comment: NOT REPORTED Normal [facility] Comment on above: Performed By: #### C ORTI ####[address] [address] #### AALD, AREN ####[address] [place] [address] TSH w/reflex to FT4on 2017 Thyroid stimulating hormone (TSH) 2.65 m[IU]/L Normal 0.30-5.00 [facility] Comment on above: Result Comment: Perf ormed at [facility] [address] [place] [address] Performed By: #### C DP, BMP, TROPI, TSHX ####[address] [place] [place] [address] Troponinon 06-28-2017 Troponin I.cardiac mass conc Normal [facility] Comment on above: Result Comment: Refe rence Range: <0.03 Within reference range. 0.03-0.09 Possible myocardial damage.Repeat at appropriate intervals to rule out chronic elevation. >= 0.10 Indicative of myocardial damage.Patients with high levels of Biotin oral intake (i.e >5mg/day) may have falsely decreased Troponin T levels. Samples collected within 8 hours of biotin intake may require additional information for diagnosis.Performed at [address] [address] Performed By: #### T ROPI ####[address] [place] [place] [address] Troponin T.cardiac mass conc ug/L Normal <0.03 [facility] Comment on above: Result Comment: Trop onin T results cannot be compared to Troponin-I results. Performed By: #### T ROPI ####[address] [address] Troponin I.cardiac mass conc Normal [facility] Comment on above: Result Comment: Refe rence Range: <0.03 Within reference range. 0.03-0.09 Possible myocardial damage.Repeat at appropriate intervals to rule out chronic elevation. >= 0.10 Indicative of myocardial damage.Patients with high levels of Biotin oral intake (i.e >5mg/day) may have falsely decreased Troponin T levels. Samples collected within 8 hours of biotin intake may require additional information for diagnosis.Performed at [address] [address] Performed By: #### T ROPI ####[address] [address] Troponin T.cardiac mass conc ug/L Normal <0.03 [facility] Comment on above: Result Comment: Trop onin T results cannot be compared to Troponin-I results. Performed By: #### T ROPI ####[address] [address] Troponin I.cardiac mass conc Normal [facility] Comment on above: Result Comment: Refe rence Range: <0.03 Within reference range. 0.03-0.09 Possible myocardial damage.Repeat at appropriate intervals to rule out chronic elevation. >= 0.10 Indicative of myocardial damage.Patients with high levels of Biotin oral intake (i.e >5mg/day) may have falsely decreased Troponin T levels. Samples collected within 8 hours of biotin intake may require additional information for diagnosis.Performed at [address] [address] Performed By: #### C DP, BMP, TROPI, TSHX ####[address] [address] Troponin T.cardiac mass conc ug/L Normal <0.03 [facility] Comment on above: Result Comment: Trop onin T results cannot be compared to Troponin-I results. Performed By: #### C DP, BMP, TROPI, TSHX ####[address] [address] UA w/Reflex Cultureon 2017 Acetaminophen mass conc Negative Normal NEG [facility] Comment on above: Performed By: #### U AX ####[address] [address] Bilirubin (direct) Negative Normal NEG [facility] Comment on above: Performed By: #### U AX ####[address] [place] [address] Comment Microscopic exam not performed based on chemical results unless requested in Normal [facility] Comment on above: Result Comment: orig inal order.Performed at [facility] [address] [facility] [place] [address] Performed By: #### U AX ####[address] [place] [address] Hemoglobin mass conc (Bld) Negative Normal NEG [facility] Comment on above: Performed By: #### U AX ####[address] [place] [address] Nitrite,Ur Negative Normal NEG [facility] Comment on above: Performed By: #### U AX ####[facility] [facility] [place] [address] Turbidity CLEAR Normal CLEAR [facility] Comment on above: Performed By: #### U AX ####[address] [place] [address] Urine, color YELLOW Normal YEL [facility] Comment on above: Performed By: #### U AX ####[address] [place] [address] Urine, glucose presence Negative Normal NEG [facility] Comment on above: Performed By: #### U AX ####[address] [place] [address] Urine, leukocyte esterase presence Negative Normal NEG [facility] Comment on above: Performed By: #### U AX ####[address] [place] [address] Urine, pH 5.5 [pH] Normal 5.0-8.0 [facility] Comment on above: Performed By: #### U AX ####[facility] [place] [address] Urine, protein presence Negative Normal NEG [facility] Comment on above: Performed By: #### U AX ####[facility] [place] [address] Urine, specific gravity 1.011 Normal 1.000-1.030 [facility] Comment on above: Performed By: #### U AX ####[facility] [place] [address] Urobilinogen,Ur Normal Normal NORM [facility] Comment on above: Performed By: #### U AX ####[facility] [place] [address] Vital Signs Date Time Vital Sign Value Performing Clinician Facility 04-08-2023 10:25-0500 Body height 162.56 cm MD Adina Bunch Work Phone: [facility] 04-08-2023 10:25-0500 Body mass index (BMI) [Ratio] 26.7 kg/m2 MD Adina Bunch Work Phone: [facility] 04-08-2023 10:25-0500 Body weight 70.76 kg MD Adina Bunch Work Phone: [facility] 10-16-2019 15:45-0400 BP Diastolic 64 mm[Hg] [facility] [place] 10-16-2019 15:45-0400 BP Systolic 154 mm[Hg] [facility] [place] 10-16-2019 08:25-0400 Body Temperature 98.01 [degF] [facility], [place] 10-16-2019 08:25-0400 Pulse (Heart Rate) 70 /min [facility] 10-16-2019 08:25-0400 Pulse Oximetry 97 % [facility] , [place] 10-16-2019 08:25-0400 Respiratory Rate 20 /min [place] 10-16-2019 06:15-0400 BMI (Body Mass Index) 25.51 kg/m2 [facility] 10-16-2019 06:15-0400 Body weight 67.4 kg [facility] [place] 10-15-2019 15:22-0400 Height 162.6 cm [facility] [place] 10-13-2019 16:07-0400 Respiratory rate NOT REPORTED [facility] Comment on above: Performed By: #### CDP, CP, LIP, TROPI, LIPRF, GLYHGB #### [facility] [address] [place], [place] [id number] Pigment Pusher: Brandon Anaya MD 10-13-2019 14:24-0400 Respiratory rate NOT REPORTED [place] Encounters Encounter Date Encounter Type Care Provider Facility Start: 12-02-2023 End: 12-02-20[facility] Start: 04-24-2023 End: 04-24-2023 ambulatory Anju Lees Facility:[facility] Start: 04-17-2023 End: 04-17-2023 ambulatory CURRY LOVING Not Available Start: 04-17-2023 End: 04-17-2023 ambulatory MD Adina Bunch Work Phone: [facility] Work Phone: Start: 04-17-2023 End: 04-17-2023 Patient encounter procedure MD Adina Bunch Work Phone: [facility] Work Phone: Start: 04-08-2023 End: 04-08-2023 ambulatory MD Adina Bunch Work Phone: [facility] Work Phone: Start: 04-08-2023 End: 04-08-2023 Patient encounter procedure MD Adina Bunch Work Phone: [facility] Work Phone: Start: 04-08-2023 End: 04-08-2023 ambulatory MD Adina Bunch Work Phone: [facility] Work Phone: Start: 04-08-2023 End: 04-08-2023 Patient encounter procedure MD Adina Bunch Work Phone: [facility] Start: 02-13-2023 End: 02-13-2023 ambulatory DENISHA Yo FELTER Not Available Start: 01-15-2023 End: 01-15-2023 ambulatory CURRY A PETITTI Not Available Start: 01-06-2023 End: 01-06-2023 ambulatory CURRY A PETITTI Not Available Start: [...] and management of inpatient DUGLAS S JUDIE [facility] Start: 10-09-2019 End: 10-16-2019 Evaluation and management of inpatient Yoon Mercado Work Phone: [facility] Comment on above: Abdominal aortic ane urysm (AAA) without rupture (HCC) (Primary Dx); Acute low back pain, unspecified back pain laterality, unspecified whether sciatica present; Vertigo; Nausea and vomiting, intractability of vomiting not specified, unspecified vomiting type; Hypertensive urgency Start: 06-27-2017 End: 06-29-2017 Evaluation and management of inpatient ADINA BUNCH [facility] Procedures Date Procedure Procedure Detail Performing [...] 10-16-2019 Glucose blood reagen t strip DUGLAS JUIDE Start: 10-16-2019 INITIATE OXYGEN THER APY PROTOCOL [...] canal lum bar w/o & w/contr matrl Muralikrishna Porandla Work Phone: Start: 10-15-2019 Glucose blood [...] LOW K Muralikrishna Porandla Work Phone: Start: 10-15-2019 Blood count complete auto&auto difrntl wbc Muralikrishna Porandla Work Phone: Start: 10-15-2019 IP CONSULT TO [...] REFLEX TO MG FOR LOW K Denys Morris Work Phone: Start: 10-14-2019 Blood count complete auto&auto difrntl wbc Denys Pormegan Work Phone: Start: 10-14-2019 T. PALLIDUM AB Kobe sylvester Pormegan Work Phone: Start: 10-14-2019 Glucose blood reagen [...] any combination ph pco2 po2 co2 hco3 Dharmakaruna Edara Work Phone: Start: 10-13-2019 Antibody mycoplsm [...] JUDIE Start: 10-13-2019 Assay of magnesium Mura likrishna Porandla Work Phone: Start: 10-13-2019 BASIC METABOLIC PANE L W/ REFLEX TO MG FOR LOW K Muralikrishna Porandla Work Phone: Start: 10-13-2019 Blood count complete auto&auto difrntl wbc Muralikrishna Porandla Work Phone: Start: 10-13-2019 INTAKE AND OUTPUT [...] Urnls dip stick/tabl et reagent auto microscopy Muralikrishna Porandla Work Phone: Start: 10-12-2019 Glucose blood [...] Phone: Start: 10-12-2019 Assay of aldosterone Mu ralikrishna Porandla Work Phone: Start: 10-12-2019 Assay of magnesium Mura likrishna Porandla Work Phone: Start: 10-12-2019 Assay of renin Muralikr ishna Porandla Work Phone: Start: 10-12-2019 BASIC METABOLIC PANE L W/ REFLEX TO MG FOR LOW K Muralikrishna Porandla Work Phone: Start: 10-12-2019 Blood count complete auto&auto difrntl wbc Muralikrishna Porandla Work Phone: Start: 10-12-2019 Gluc bld [...] S Judie Work Phone: Start: 10-11-2019 Metanephrines Georgi Morris Work Phone: Start: 10-11-2019 Mri brain brain [...] W/ REFLEX TO MG FOR LOW K Murkashifna Porandla Work Phone: Start: 10-11-2019 Blood count complete auto&auto difrntl wbc Murjostin Porandla Work Phone: Start: 10-11-2019 INTAKE AND [...] JUDIE Start: 10-10-2019 Assay of lactate Alfonso Michelle gallardo Erazo Work Phone: Start: 10-10-2019 C-reactive protein Alfonso Hammond [facility]raz[facility] Work Phone: Start: 10-10-2019 Procalcitonin (pct) Thai michelle Hammond [facility] Work Phone: Start: 10-10-2019 Sedimentation rate r bc automated Alfonso Hammond [facility] Work Phone: Start: 10-10-2019 Ct head/brain w/o co ntrast material Jimmy Chirri Work Phone: Start: 10-10-2019 Ct angiography neck w/contrast/noncontrast Alfonso Hammond [facility]raz[facility] Work Phone: Start: 10-10-2019 Glucose blood reagen [...] REFLEX TO MG FOR LOW K Denys Morris Work Phone: Start: 10-10-2019 Blood count complete auto&auto difrntl wbc Denys Morris Work Phone: Start: 10-10-2019 Gluc bld gluc mntr d ev cleared fda spec home use DUGLAS JUDIE Start: 10-10-2019 DAILY WEIGHTS DUGLAS RA THORE Start: 10-10-2019 INTAKE AND OUTPUT RANVI R JUDIE Start: 10-10-2019 Gluc bld gluc mntr d ev cleared fda spec home use DUGLAS JDUIE Start: 10-09-2019 Radiologic exam abdo men 1 [...] abdominal real ti me w/image limited Matt Casonara Work Phone: Start: 10-09-2019 ELEVATE HEELS OFF [...] Urnls dip stick/tabl et reagent auto microscopy DUGALS JUDIE Start: 10-09-2019 Urnls dip stick/tabl et rgnt auto w/o microscopy DUGLAS JUDIE Start: 10-09-2019 Urnls dip stick/tabl et reagent auto microscopy Muralikrishna Porkikela Work Phone: Start: 10-09-2019 Urnls dip stick/tabl et rgnt auto w/o microscopy Muralikrishna Porkikela Work Phone: Start: 10-09-2019 PATIENT STATUS (FROM ED OR OR/PROCEDURAL) DUGLAS JUDIE Start: 10-09-2019 IP CONSULT TO DIRECTOR STRATEGY AL MEDICINE DUGLAS JUDIE Start: 10-09-2019 Ct [...] Work Phone: Start: 10-09-2019 IP CONSULT TO [facility] SURGERY DUGLAS DIMAS Start: 10-09-2019 COVID-19 Elizabeth camacho Work Phone: [...] Melton Work Phone: Start: 10-09-2019 Lipid panel Joelthalia youngblood Work Phone: Start: 06-29-2017 DISCHARGE PATIENT DOUGL [...] MAYRA GLAS HOY Start: 06-28-2017 TRANSFER PATIENT LEXIE BUNCH Start: 06-28-2017 BASIC METABOLIC PANE L W/ [...] Y Start: 06-28-2017 NOTIFY PHYSICIAN (SPECIFY) ADINA HOY Start: 06-28-2017 PLACE INTERMITTENT PNEUMATIC COMPRESSION DEVICE ADINA HOY Start: 06-28-2017 REASON FOR NO CHEMIC AL VTE PROPHYLAXIS ADINA HOY Start: 06-28-2017 TELEMETRY MONITORING DO UGLAS HOY Start: 06-28-2017 VITAL SIGNS ADINA HO Y Start: 06-28-2017 PATIENT STATUS (FROM ED OR OR/PROCEDURAL) ADINA HOY Start: 06-28-2017 TROPONIN ADINA HO Y Start: 06-28-2017 IP CONSULT TO DIRECTOR STRATEGY AL MEDICINE ADINA HOY Start: 06-28-2017 EKG 12-LEAD ADINA HO Y Start: 06-28-2017 BASIC METABOLIC PANEL D OUGLAS HOY Start: 06-28-2017 CBC WITH AUTO DIFFERENTIAL ADINA HOY Start: 06-28-2017 TROPONIN ADINA HO Y Start: 06-28-2017 TSH WITH REFLEX ADINA HOY Start: 06-28-2017 Radiologic exam ches t 2 views ADINA HOY Start: 06-27-2017 URINE RT REFLEX TO CULTURE ADINA HOY Start: 06-27-2017 INSERT PERIPHERAL IV DO JC BUNCH Plan of Treatment Date Care Activity Detail Author Start: 04-08-2023 Plain X-ray of right hand XR hand RT min 3V* [facility] Start: 04-08-2023 XR Hand - right GE 3 Views [facility] Start: 10-14-2020 Creatinine measurement Creatinine mo nitoring [place], [place] Start: 10-14-2020 Potassium monitoring Potassium monit oring [place], [place] Start: 10-26-2019 Influenza vaccination Flu vaccine (# 1) [place], [place] Start: 08-16-2018 Annual Wellness Visi t (AWV) Annual Wellness Visit (AWV) [place], [place] Start: 05-23-2008 Pneumococcal 65+ yea rs Vaccine (1 of 1 - PPSV23) Pneumococcal 65+ years Vaccine (1 of 1 - PPSV23) [place], [place] Start: 05-23-1998 Screening for osteoporosis DEXA (modify frequency per FRAX score) [place], [place] Start: 05-23-1993 Shingles Vaccine (1 of 2) Shingles Vaccine (1 of 2) [place], [place] Start: 05-23-1962 DTaP/Tdap/Td vaccine (1 - Tdap) DTaP/Tdap/Td vaccine (1 - Tdap) [place], [place] End: 10-11-2019 ALBUMIN, CSF ALBUMIN, CSF Lab Routine One Time for 1 Occurrences starting 10/11/2019 until 10/11/2019 [place] Comment on above: One Time for 1 Occur rences starting 10/11/2019 until 10/11/2019 Basic Metabolic Pane l w/ Reflex to MG Basic Metabolic Panel w/ Reflex to MG Lab Routine Daily until discontinued starting 10/10/2019, 7 completed [place] Comment on above: Daily until disconti nued starting 10/10/2019, 7 completed CBC auto differential CBC auto d ifferential Lab Routine Daily until discontinued starting 10/10/2019, 7 completed [place] Comment on above: Daily until disconti nued starting 10/10/2019, 7 completed Culture, Blood 1 [place], [place] End: 10-16-2019 Culture, Urine Culture, Urine Microbiology Routine One Time for 1 Occurrences starting 10/16/2019 until 10/16/2019 [facility] [place] Comment on above: One Time for 1 Occur rences starting 10/16/2019 until 10/16/2019 Culture, Urine Culture, Urine Microbiology [employer] Label Print 10/16/2019 1:08 PM EDT [facility], [place] Nebulizer therapy HHN Treatment Respiratory Care Routine As Needed until discontinued starting 10/11/2019 [facility] [place] Comment on above: As Needed until disc ontinued starting 10/11/2019 Oxygen therapy [[facility] Data Set] Initiate Oxygen Therapy Protocol Respiratory Care Routine Daily until discontinued starting 10/09/2019 [facility], [place] Comment on above: Daily until disconti nued starting 10/09/2019 POCT Glucose [facility], [place] Comment on above: As Needed until disc ontinued starting 10/09/2019 4X Daily (AC & HS) u ntil discontinued starting 10/09/2019 Immunizations Immunization Date Immunization Notes Care Provider Fa [facility] 12-20-2020 COVID-19 mRNA-1273 (Moderna) MD Adina Bunch Work Phone: [facility] 04-21-2020 COVID-19 mRNA-1273 (Modernsrinath) MD Adina Bunch Work Phone: [facility] 03-24-2020 COVID-19 mRNA-1273 (Moderna) MD Adina Bunch Work Phone: [facility] Payers Date Payer Category Payer Medicare [id number] 2014 Medicare [id number] 1961 Medicare [id number] 1961 Medicare [id number] 1961 Self-pay 1945 Unknown [id number] 2.16.8 [id number] 1943 Unknown [id number] 2.16.84 [id number] 1943 Unknown [id number] 2.16.84 [id number] 1943 Unknown [id number] 2.16.84 [id number] 1943 Unknown [id number] 2.16.84 [id number] 1943 Unknown [id number] 2.16.84 [id number] 1943 Unknown [id number] 2.16.84 [id number] 1943 Unknown [id number] 2.16.840 .[id number] 1943 Unknown [id number] 2.16.840 .[id number] 1943 Unknown [id number] 2.16.840. [id number] 1943 Unknown [id number] 2.16.840. 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 (finding) [place], [place] Sex Assigned At Not on file [place] Exposure to SARS-CoV -2 (event) Not sure [place], [place] Start: 1945 Sex Assigned At Female F [facility] Start: 04-17-2023 Tobacco smoking stat [facility] Ex-smoker (finding) [facility] Progress note 12-02-2023 Note Date & Type Note Facility 12-02-2023 Note [facility] Progress note 12-02-2023 Note Date & Type Note Facility 12-02-2023 Note [facility] Consult Note [facility] - [facility] Reason for visit: Afib HPI: Zachary Maynard is a 78 y.o. year old with past medical history of Past medical history of COPD, uterine cancer, diabetes, hypertension was recently admitted to [facility] and noted to be in A-fib with RVR which was noted when she went to present for an echocardiogram. She was placed on Cardizem and subsequently converted to sinus rhythm spontaneously. She has had a productive cough at that time and other than that denied any fever. She has been known to have COPD and occasionally required oxygen while in the hospital but did not use any oxygen at home. Holter monitor done did not reveal any further episodes of A-fib but nonsustained ventricular tachycardia a few beats. Pt is here for a follow up from event monitor , and hospital. Pt complains of sob, and pain between her breast. She has been experiencing palpitations on and off x 6mnths. Last episodes was 2 days ago. PMH: No past medical history on file. PSH: No past surgical history on file. SH: Social Determinants of Health Tobacco Use: Not on file Alcohol Use: Not on file Financial Resource Strain: Not on file Food Insecurity: Not on file Transportation Needs: Not on file Physical Activity: Not on file Stress: Not on file Social Connections: Not on file Intimate Partner Violence: Unknown (04/17/2023) [place] Safety & Environment Fear of Current or Ex-Partner: Not on file Emotionally Abused: Not on file Physically Abused: Not on file Sexually Abused: Not on file Physically or Sexually Abused: Not on file Depression: Not on file Housing Stability: Not on file Utilities: Not on file Allergies: Allergies Allergen Reactions Demerol [Meperidine] Unknown Weight: 72.1kg Visit Vitals BP 165/81 Pulse 55 Ht 1.6 m (5' 3 ) Wt 72.1 kg (159 lb) SpO2 97% BMI 28.17 kg/m??? BSA 1.79 m??? Meds: Current Outpatient Medications on File Prior to Visit Medication Sig Dispense Refill albuterol 90 mcg/actuation inhaler 2 puffs. amLODIPine (Norvasc) 10 mg tablet Take 1 tablet by mouth in the morning. Eliquis 5 mg tablet 5 mg every 12 (twelve) hours. Spiriva with HandiHaler 18 mcg inhalation capsule 1 (one) time each day at the same time. spironolactone (Aldactone) 100 mg tablet Take 1 tablet by mouth in the morning. No current facility-administered medications on file prior to visit. ROS: Review of Systems Cardiovascular: Positive for chest pain and palpitations. Respiratory: Positive for shortness of breath. Neurological: Positive for dizziness. All other systems reviewed and are negative. Physical Exam: Constitutional General Appearance: well-nourished, well-developed, appears stated age Level of Distress: comfortable Psychiatric Mental Status: alert, normal affect Orientation: oriented to time, place, and person Insight: good judgement Eyes Lids and Conjunctivae: non-injected, no xanthelasma ENMT Ears: no lesions on external ear Nose: no lesions on external nose Oropharynx: no cyanosis, no pallor Neck Neck: supple, trachea midline Carotid Arteries: bilateral normal upstroke, no bruits Jugular Veins: normal jugular venous pressure Thyroid: not enlarged Lungs Respiratory Effort: unlabored Chest Exam: normal curvature, no thoracic deformity Auscultation: clear, no wheezing, no rales, no rhonchi Cardiovascular Rate And Rhythm: regular Heart Sounds: normal S1, normal s2, no gallop Systolic Murmur: not heard Diastolic Murmur: not heard Extremities: no cyanosis, no edema, no peripheral signs of emboli Peripheral Pulses Radial Pulse: normal Abdomen Inspection and Palpation: soft, non distended, no bruit, non tender Musculoskeletal Inspection: no joint swelling Neurologic Gait: normal gait Skin Inspection and Palpation: warm and dry Nails: no clubbing Labs: @LABRESULTS@ No results found for: CHOLESTEROL TOTAL , HDL , LDL CALC , LDL DIRECT , TRIGLYCERIDES , TSH , T3 TOTAL , T4 TOTAL , THYROID PEROXIDASE AB , BNP EKG: No results found for this or any previous visit (from the past 4464 hour(s)). Echo: 11/26/23 Stress test: Coronary angiogram: @CATH@ Diagnostic Imaging: Assessment and Plan: - New diagnosis of atrial fibrillation - NSVT -COPD -Hypertension - Dm2 Pt will benefit from termite control representative monitoring of AF. Will recc LHC/RHC for NSVT and dyspnea Adv RF modification. Will start Amio for maintaining SR. Dusty Young MD Cardiac Electrophysiology [facility] History and physical note 06-15-2020 Note Date & Type Note Facility 06-15-2020 Note [id number] 5#[id number]:127 [facility] Clinical Note 06-15-2020 Note Date & [...] you have a fever over 100 degrees [facility] History and physical note 05-18-2020 Note Date & Type Note Facility 05-18-2020 Note [id number] 2#1.00CD:127 [facility] Clinical Note 05-18-2020 Note Date & [...] you have a fever over 100 degrees [facility] Evaluation note Note Date & Type Note Facility Evaluation note Diagnosis Onset Date Trigger finger, right middle finger acute Trigger finger, right ring finger acute [facility] Work Phone: Summary Purpose Family History No Family History Records Found Relationship Condition Age at Onset Recorded Date/T janki father Malignant neoplasm of lung Unknown Not Specified Myocardial infarction Unknown Advance Directives No Advanced Directives Records FoundDocuments on File Type Date Recorded Patient Director Of Laboratory Operations Expl anation ACP-Advance Directive ACP-Power of Bass Mechanism Maker Latest Code Status on File Code Status [...] Full Code Advance Directives: Admitting Physician: Duglas Dimas MD PCP: Adina Bunch MD Discharging Nurse: Ching Discharging Hospital Unit/Room#: Discharging Unit Phone Number: Emergency Contact: Extended Emergency Contact Information Primary Emergency Contact: Deep Maynard [facility] Relation: Spouse Past Surgical History: Past Surgical [...] Assisted Dressing Assisted Toileting Assisted Feeding Assisted Narrow Fabric Loom Fixer Independent Med Delivery whole Wound Care Documentation and Therapy: N/A Elimination: Continence: Bowel: Yes Bladder: No Urinary Catheter: Insertion Date: 10/16/2019 Colostomy/Ileostomy/Ileal Conduit: No Date of Last BM: 10/16/2019 Intake/Output Summary (Last 24 hours) at 10/13/2019 1210 Last data filed at 10/13/2019 0643 Gross per 24 hour Intake 1973 ml Output 2100 ml Net -127 ml I/O last 3 completed shifts: In: 1973 [P.O.:260; I.V.:1713] Out: 2100 [Urine:2100] Safety Concerns: At Risk for Falls [...] NOT a DME order): n/a Other Treatments: usp, home health aide services Patient's personal belongings (please select all that are sent with patient): patient has all belongings RN SIGNATURE: CASE MANAGEMENT/SOCIAL WORK SECTION Inpatient Status Date: 10-09-2019 Readmission Risk Assessment Score: Readmission Risk Risk of Unplanned Readmission: 12 Discharging to Facility/ Agency Name: [facility] Address: Phone: Fax: Dialysis Facility (if applicable) Name: Address: Dialysis Schedule: Phone: Fax: Web Marketing Strategist/Sales Representative Business Courses signature: EDT ICIAN SECTION Prognosis: Fair Condition [...] size monitoring with PCP F/u urologist at [facility] 1 week for lowe and void trial Take docusate 100 mg daily and miralax 17 g daily. documented in this encounter History of Present Illness * Tami Ni RN - 10/16/2019 5:51 PM EDT Social Scientist discharged patient @ 1745 by wheelchair off unit with . Social Scientist went over all discharge paperwork and patient [...] who was admitted as a transfer from [facility] 10/09/2019 where she presented with gradually worsening [...] to ensure the accuracy of this automated overnight caregiver, some errors in overnight caregiver may have occurred. * Michelle Pelletier MD - 10/16/2019 11:07 AM EDT [facility] Internal Medicine Teaching Residency Program Inpatient Daily Progress Note Patient: Zachary Maynard Date of : 1945 Acct: [id number] Room: Admit date: 10/09/2019 Today's date: 10/16/19 [...] of COPD, primary hypertension was transferred from [facility] for management of infrarenal abdominal aortic aneurysm and for vascular consultation. States she started having lower back pain since . Describes the pain as constant, sharp, 10out of 10 in intensity associated with nausea. Patient went to the emergency department at [facility] to have hypertensive emergency with systolics above 200 and d-dimer was elevated. CT abdomen was done which showed 3.5 infrarenal aortic aneurysm, started on Cardene drip and pain medications we re given. Patient was transferred to [facility] found to be hypoxic in upper 80s, [...] Q4H PRN hydrALAZINE, 10 mg, Q6H PRN isxvirafxc-bhbfeajsmrkvm-udfohvrc, 1 tablet, Q4H PRN sodium chloride flush, [...] Dwayne Hanson MD Internal Medicine Resident, PGY-1 [facility]; [place], [place] 10/16/2019, 11:07 AM I have discussed [...] 9:31 AM EDT [facility] - Progress Note Today's Date and Time: [...] culture. Medical Decision Making/Summary/Discussion:10/16/2019 Infection Control Recommendations Bath Precautions Antimicrobial Stewardship Recommendations Discontinuation of therapy [...] of . INITIAL HISTORY: Patient transferred from [facility] on 10-09-19 because of low back pain and findings of an infrarenal abdominal aortic aneurysm. Developed onset of back pain on 10-07-19, associated with nausea. She was evaluated at [facility] and found to have a hypertensive emergency with systolic pressures over [address] showed a 3.5 cm infrarenal aortic aneurysm. Her BP was controlled with Cardene drip and the patient was transferred to [facility]. At [facility] patient had signs of hypoxia, and an [...] file Gets together: Not on file Attends episcopal service: Not on file Active member of [...] Initial FINDINGS: CTA NECK: AORTIC ARCH/ARCH VESSELS: Ppok-hb-lqsjytbp atherosclerotic plaque at the arch arch and [...] No acute pulmonary process. Emphysema. Medical Decision Bufbgc-Jyvogdjv-Rdskp: 10/15/2019 12:10 AM - Prieto, Mhpn Incoming Lab Results From [facility] Specimen Information: Blood Component Collected Lab Specimen Description 10/12/2019 2:17 PM [facility] .BLOOD Special Requests 10/12/2019 2:17 PM [facility] back lt arm 3ml Culture [facility]/12[facility]2019 2:[facility] NO GROWTH 3 DAYS Medical Decision Making-Other: Note: Labs, medications, radiologic studies were reviewed with personal review of films Large amounts of data were reviewed Discussed with nursing Staff, mechanical planner Infection Control and Prevention measures reviewed [...] Patel RN - 10/16/2019 6:15 AM EDT Social Scientist bladder scanned patient and bladder scan shows 554 mL, chart writer straight cath patient and was only [...] well. Will continue to monitor. * Nedra Velasquez, RD, LD - 10/15/2019 3:28 PM EDT [...] loss Fluid Accumulation: 1 - Mild Extremities Tip Out Worker Strength: Not Performed Estimated Daily Nutrient Needs: Energy (kcal): 1.3-1.4 ~> 2038-7645 kcals/d; Weight Used for Energy Requirements: Admission Protein (g): 1.2-1.4 ~> 65-76 gms/d; Weight Used for Protein Requirements: [place] Nutrition Related Findings: Na 131 Wounds: None Current Nutrition Therapies: DIET GENERAL; Anthropometric Measures: Height: 5' 4 (162.6 cm) Current Body Weight: 154 lb (69.9 kg) Admission Body Weight: 154 lb (69.9 kg) Usual Body Weight: 160 lb (72.6 kg)(per pt's ) [place] Body Weight: 120 lbs; % [place] Body Weight 128.3 % BMI: 26.4 BMI [...] Discharge Planning: Too soon to determine Contact: [phone] * Dwayne Hanson MD - 10/15/2019 3:09 PM EDT [facility] Internal Medicine Teaching Residency Program Inpatient Daily Progress Note Patient: Zachary Maynard Date of : 1945 Acct: [id number] Room: Admit date: 10/09/2019 Today's date: 10/15/19 [...] of COPD, primary hypertension was transferred from [facility] for management of infrarenal abdominal aortic aneurysm and for vascular consultation. States she started having lower back pain since . Describes the pain as constant, sharp, 10out of 10 in intensity associated with nausea. Patient went to the emergency department at [facility] to have hypertensive emergency with systolics above 200 and d-dimer was elevated. CT abdomen was done which showed 3.5 infrarenal aortic aneurysm, started on Cardene drip and pain medications we re given. Patient was transferred to [facility] found to be hypoxic in upper 80s, [...] Q4H PRN hydrALAZINE, 10 mg, Q6H PRN walnllguvp-gfdmhwxccmsza-pyddonie, 1 tablet, Q4H PRN sodium chloride flush, [...] 210 190 241 BMP: Recent Labs 10/13/19 0602 10/14/19 0535 10/15/19 1015 NA 131* 130* 131* [...] Dwayne Hanson MD Internal Medicine Resident, PGY-1 [facility]; [place], [place] 10/15/2019, 3:09 PM Associated attestation - Michelle Pelletier MD - 10/15/2019 4:31 PM EDT I have discussed the care of Zachary Binghamon , including pertinent history and exam findings, [...] - 10/15/2019 3:09 PM EDT Occupational Therapy [facility] Occupational Therapy Not Seen Note DATE: 10/15/2019 [...] appropriate. Winifred Foster, OT/S * Sho Tierney PTA - 10/15/2019 1:55 PM EDT Physical Therapy Facility/Department: [facility] 2 Daily Treatment Note NAME: Zachary Maynard [...] place: No Restraints: all rail up when SUPERVISOR FILTER ASSEMBLY left, okay with pt Therapy Time Individual Concurrent Group Co-treatment Time In 1326 Time Out 1342 Minutes 16 Timed Code Treatment Minutes: 16 Minutes Sho Tierney, SUPERVISOR FILTER ASSEMBLY * Willie Garcia, HELP DESK SUPERVISOR - CERTIFIED MASTER LOCKSMITH - 10/15/2019 10:38 AM EDT Neurology Nurse [...] who was admitted as a transfer from [facility] 10/09/2019 where she presented with gradually worsening [...] to ensure the accuracy of this automated overnight caregiver, some errors in overnight caregiver may have occurred. * Sailaja Durán RN - 10/15/2019 9:00 AM EDT Pt straight cathed for 850 cc clear yellow urine. Tolerated well. Will continue to monitor. * Alfonso Kendrick MD - 10/15/2019 8:38 AM EDT [facility] - Progress Note Today's Date and Time: [...] antibiotics Medical Decision Making/Summary/Discussion:10/15/2019 Infection Control Recommendations Bath Precautions Antimicrobial Stewardship Recommendations Discontinuation of therapy [...] of . INITIAL HISTORY: Patient transferred from [facility] on 10-09-19 because of low back pain and findings of an infrarenal abdominal aortic aneurysm. Developed onset of back pain on 10-07-19, associated with nausea. She was evaluated at [facility] and found to have a hypertensive emergency with systolic pressures over [address] showed a 3.5 cm infrarenal aortic aneurysm. Her BP was controlled with Cardene drip and the patient was transferred to [facility]. At [facility] patient had signs of hypoxia, [...] file Gets together: Not on file Attends episcopal service: Not on file Active member of [...] following labs: CBC with Differential: Recent Labs 10/13/1960110/14/19 0535 WBC 12.3* 10.0 HGB 14.5 12.9 [...] Initial FINDINGS: CTA NECK: AORTIC ARCH/ARCH VESSELS: Piyr-vz-vrlkujye atherosclerotic plaque at the arch arch and [...] No acute pulmonary process. Emphysema. Medical Decision Gliuyp-Wiaunnam-Wdtnj: 10/15/2019 12:10 AM - Prieto, [place] Incoming Lab Results From [facility] Specimen Information: Blood Component Collected Lab Specimen Description 10/12/2019 2:17 PM [facility] .BLOOD Special Requests 10/12/2019 2:17 PM [facility] back lt arm 3ml Culture 10/12/2019 2:17 PM [facility] NO GROWTH 3 DAYS Medical Decision Making-Other: Note: Labs, medications, radiologic studies were reviewed with personal review of films Large amounts of data were reviewed Discussed with nursing Staff, mechanical planner Infection Control and Prevention measures reviewed [...] Hanson MD - 10/14/2019 1:29 PM EDT [facility] Internal Medicine Teaching Residency Program Inpatient Daily Progress Note Patient: Zachary Maynard Date of : 1945 Acct: [id number] Room: Admit date: 10/09/2019 Today's date: 10/14/19 [...] of COPD, primary hypertension was transferred from [facility] for management of infrarenal abdominal aortic aneurysm and for vascular consultation. States she started having lower back pain since . Describes the pain as constant, sharp, 10out of 10 in intensity associated with nausea. Patient went to the emergency department at [facility] to have hypertensive emergency with systolics above 200 and d-dimer was elevated. CT abdomen was done which showed 3.5 infrarenal aortic aneurysm, started on Cardene drip and pain medications we re given. Patient was transferred to [facility] found to be hypoxic in upper 80s, [...] Q4H PRN hydrALAZINE, 10 mg, Q6H PRN munpugfeds-ibrakrtbpqvcu-kgjsaarc, 1 tablet, Q4H PRN sodium chloride flush, [...] PRN Diagnostic Labs: CBC: Recent Labs 10/12/19 0636 10/13/19 0602 10/14/19 0535 WBC 12.2* 12.3* 10.0 RBC 4.32 4.87 4.38 HGB 12.7 14.5 12.9 HCT 40.5 45.5 39.5 MCV 93.8 93.4 90.2 RDW 14.7* 15.0* 14.7* PLT 196 210 190 BMP: Recent Labs 10/12/19 0636 10/13/19 0602 [...] Dwayne Hanson MD Internal Medicine Resident, PGY-1 [facility]; [place], [place] 10/14/2019, 1:29 PM Associated attestation - [...] Electronically signed by Michelle Pelletier MD * Willie Garcia APRN - [place] - 10/14/2019 11:22 AM EDT Neurology Nurse [...] who was admitted as a transfer from [facility] 10/09/2019 where she presented with gradually worsening [...] to ensure the accuracy of this automated overnight caregiver, some errors in overnight caregiver may have occurred. * Alfonso Kendrick MD - 10/14/2019 10:10 AM EDT [facility] - Progress Note Today's Date and Time: [...] antibiotics Medical Decision Making/Summary/Discussion:10/14/2019 Infection Control Recommendations Bath Precautions Antimicrobial Stewardship Recommendations Discontinuation of therapy [...] of . INITIAL HISTORY: Patient transferred from [facility] on 10-09-19 because of low back pain and findings of an infrarenal abdominal aortic aneurysm. Developed onset of back pain on 10-07-19, associated with nausea. She was evaluated at [facility] and found to have a hypertensive emergency with systolic pressures over [address] showed a 3.5 cm infrarenal aortic aneurysm. Her BP was controlled with Cardene drip and the patient was transferred to [facility]. At [facility] patient had signs of hypoxia, [...] file Gets together: Not on file Attends episcopal service: Not on file Active member of [...] Initial FINDINGS: CTA NECK: AORTIC ARCH/ARCH VESSELS: Ejfa-vh-ovjhgxmp atherosclerotic plaque at the arch arch and [...] No acute pulmonary process. Emphysema. Medical Decision Tpxdut-Whoeqqmk-Znoyo: Medical Decision Making-Other: Note: Labs, medications, radiologic studies were reviewed with personal review of films Large amounts of data were reviewed Discussed with nursing Staff, mechanical planner Infection Control and Prevention measures reviewed [...] Ferris RN - 10/13/2019 10:40 PM EDT Social Scientist contacted internal med regarding pt complaining of lower abdominal pain. States she has to void but is unable to. Bladder scanned her just now and >999. New order for one time straight cath. Straight cath completed at 2315. 900ml clear, yellow urine out with 63ml residual. Will continue to monitor. 0430- Social Scientist contacted internal med regarding pt unable to void. Bladder scan shows 490. One time straight cath order placed at 0610. New bladder scan shows 571. Cath completed at 0645. 550ml clear, yellow urine out with 16ml residual. Will continue to monitor. Internal med also made aware that pt has not had bowel movement since admission. Mirilax administered. Bowel sounds active. * Linda Adhikari PTA - 10/13/2019 4:16 PM EDT Physical Therapy Facility/Department: [facility] 2 Daily Treatment Note NAME: Zachary Maynard [...] Hanson MD - 10/13/2019 9:30 AM EDT [facility] Internal Medicine Teaching Residency Program Inpatient Daily Progress Note Patient: Zachary Maynard Date of : 1945 Acct: [id number] Room: Admit date: 10/09/2019 Today's date: 10/13/19 Number of days in the hospital: 4 SUBJECTIVE Admitting Diagnosis: Aneurysm of infrarenal abdominal aorta (HCC) CC: Midline Lower Back Pain Pt examined at bedside. Chart & results reviewed. BP increased overnight - Corporation Officer Media Producer gave Norvasc and started IV Hydralazine early [...] of COPD, primary hypertension was transferred from [facility] for management of infrarenal abdominal aortic aneurysm and for vascular consultation. States she started having lower back pain since . Describes the pain as constant, sharp, 10out of 10 in intensity associated with nausea. Patient went to the emergency department at [facility] to have hypertensive emergency with systolics above 200 and d-dimer was elevated. CT abdomen was done which showed 3.5 infrarenal aortic aneurysm, started on Cardene drip and pain medications we re given. Patient was transferred to [facility] found to be hypoxic in upper 80s, [...] Q4H PRN hydrALAZINE, 10 mg, Q6H PRN wcctjljhhf-wuctwhvwlthba-lmmcehnl, 1 tablet, Q4H PRN sodium chloride flush, [...] Dwayne Hanson MD Internal Medicine Resident, PGY-1 [facility]; [place], [place] 10/13/2019, 9:31 AM Associated attestation - [...] problems. 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 Headache is improved Blood pressure improved Ultrasound renal duplex, concerning for unilateral renal artery stenosis Patient very sleepy Has tenderness in lower back X-ray lumbar spine done at the time of admission, concerning for possible fracture Ordering MRI lumbar spine Electronically signed by Michelle Pelletier MD * JethroViry mcgraw, HELP DESK SUPERVISOR - CERTIFIED MASTER LOCKSMITH - 10/13/2019 8:44 AM EDT NEUROLOGY INPATIENT [...] negative for acute changes -IV Depacon 500mg O0tgkjb x3 doses -Continued blood pressure management as [...] to ensure the accuracy of this automated overnight caregiver, some errors in overnight caregiver may have occurred. * Alfonso Kendrick MD - 10/13/2019 7:57 AM EDT [facility] - Progress Note Today's Date and Time: 10/13/2019, 7:57 AM Impression : Fever, etiology to be determined Intermittent Headaches, most likely side effect of the various medications being given for control of HTN. No apparent meningitis Low back pain Aneurysm infrarenal abdominal aorta Centrilobular emphysema Allergy to quinolones, sulfa Recommendations: Monitor off antibiotics Medical Decision Making/Summary/Discussion:10/13/2019 Infection Control Recommendations Bath Precautions Antimicrobial Stewardship Recommendations Discontinuation of therapy [...] of . INITIAL HISTORY: Patient transferred from [facility] on 10-09-19 because of low back pain and findings of an infrarenal abdominal aortic aneurysm. Developed onset of back pain on 10-07-19, associated with nausea. She was evaluated at [facility] and found to have a hypertensive emergency with systolic pressures over [address] showed a 3.5 cm infrarenal aortic aneurysm. Her BP was controlled with Cardene drip and the patient was transferred to [facility]. At [facility] patient had signs of hypoxia, [...] file Gets together: Not on file Attends episcopal service: Not on file Active member of [...] Initial FINDINGS: CTA NECK: AORTIC ARCH/ARCH VESSELS: Etaj-tv-tcsxvuvu atherosclerotic plaque at the arch arch and [...] No acute pulmonary process. Emphysema. Medical Decision Ixexfz-Hpashqri-Speud: Medical Decision Making-Other: Note: Labs, medications, radiologic studies were reviewed with personal review of films Large amounts of data were reviewed Discussed with nursing Staff, mechanical planner Infection Control and Prevention measures reviewed All prior entries were reviewed Administer medications as ordered Prognosis: Guarded Discharge planning reviewed Follow up as outpatient. Thank you for allowing us to participate in the care of this patient. Please call with questions. Dickson Hutchinson DPM Pager: - Office: * Divina Ferris RN - 10/13/2019 3:00 AM EDT Social Scientist contacted internal med regarding pt blood pressure. BP at 1999 was 185/77, scheduled PO hydralazine and lopressor administered. BP at 2200 was 149/57. BP at 2345 was 171/70, PRN IV hydralazineand PO fioricet administered, BP down to 152/54 with recheck. BP back to 165/74 around 0115, PRN IVlabatolol administered, 129/77 with recheck. BP is now 153/64. There are no more PRN BP medicationsto administer. New order for PO 10mg norvasc. Social Scientist will continue to monitor BP and pain. * Alfonso Kendrick MD - 10/12/2019 4:32 PM EDT [facility] - Progress Note Today's Date and Time: 10/12/2019, 4:32 PM Impression : Fever, etiology to be determined Intermittent Headaches, most likely side effect of the various medications being given for control of HTN. No apparent meningitis Low back pain Aneurysm infrarenal abdominal aorta Centrilobular emphysema Allergy to quinolones, sulfa Recommendations: Monitor off antibiotics Blood, urine cultures Medical Decision Making/Summary/Discussion:10/12/2019 Infection Control Recommendations Bath Precautions Antimicrobial Stewardship Recommendations Discontinuation of therapy [...] of . INITIAL HISTORY: Patient transferred from [facility] on 10-09-19 because of low back pain and findings of an infrarenal abdominal aortic aneurysm. Developed onset of back pain on 10-07-19, associated with nausea. She was evaluated at [facility] and found to have a hypertensive emergency with systolic pressures over [address] showed a 3.5 cm infrarenal aortic aneurysm. Her BP was controlled with Cardene drip and the patient was transferred to [facility]. At [facility] patient had signs of hypoxia, [...] file Gets together: Not on file Attends episcopal service: Not on file Active member of [...] Initial FINDINGS: CTA NECK: AORTIC ARCH/ARCH VESSELS: Rmpe-pc-yrvdttgv atherosclerotic plaque at the arch arch and [...] No acute pulmonary process. Emphysema. Medical Decision Ahfycs-Sgwkshgz-Zorkt: Medical Decision Making-Other: Note: Labs, medications, radiologic studies were reviewed with personal review of films Large amounts of data were reviewed Discussed with nursing Staff, mechanical planner Infection Control and Prevention measures reviewed All prior entries were reviewed Administer medications as ordered Prognosis: Guarded Discharge planning reviewed Follow up as outpatient. Thank you for allowing us to participate in the care of this patient. Please call with questions. Alfonso Kendrick MD Pager: - Office: * Malissa Anderson PTA - 10/12/2019 2:55 PM EDT Physical Therapy [...] to palliative care. No further needs. Malissa Anderson PTA * Montserrat Finnegan OTA - 10/12/2019 2:26 PM EDT Occupational Therapy Not Seen Note DATE: 10/12/2019 Name: Zachary Maynard : 1945 Patient not available for Occupational Therapy due to: RN cx d/t pt not feeling well and has a fever. Next Scheduled Treatment: 10/13/2019 * Denys Morris MD - 10/12/2019 1:53 PM EDT [facility] Internal Medicine Teaching Residency Program Inpatient Daily Progress Note Patient: Zachary Maynard Date of : 1945 Acct: [id number] Room: Admit date: 10/09/2019 Today's date: 10/12/19 [...] Q4H PRN hydrALAZINE, 10 mg, Q6H PRN ctkewtlxkk-kqbogknjsjads-udtkbxtk, 1 tablet, Q4H PRN sodium chloride flush, [...] mL/hr, PRN Diagnostic Labs: CBC: Recent Labs 10/10/1962610/11/19 0510/12/19 0636 WBC 7.4 6.8 12.2* RBC 4.53 4.71 4.32 HGB 13.5 13.7 12.7 HCT 42.7 43.6 40.5 MCV 94.3 92.6 93.8 RDW 14.5* 14.3 14.7* PLT 170 196 196 BMP: Recent Labs 10/10/1962610/11/1952810/12/19 0636 NA 132* 135 132* K 3.5* [...] Denys Morris MD Internal Medicine Resident, PGY-3 [facility]; [place], [place] 10/12/2019, 1:53 PM * Michelle Pelletier MD - 10/12/2019 1:07 PM EDT Patient seen and examined Little sleepy, clonidine discontinued Hypertension controlled Headache improved MRI brain reviewed concerning for meningioma Work-up for secondary hypertension progress * Viry Morelos APRN - CERTIFIED MASTER LOCKSMITH - 10/12/2019 6:51 AM EDT NEUROLOGY INPATIENT [...] to ensure the accuracy of this automated overnight caregiver, some errors in overnight caregiver may have occurred. * Divina Ferris RN - 10/11/2019 10:20 PM EDT Social Scientist contacted internal med regarding pt headache of 05/03. Pt has IV toradol and reglan ordered. Pt is alert and oriented x2. Social Scientist instructed to hold IV toradol and reglan and to administer PRN tylenol for the headache. Will continue to monitor. * Divina Ferris RN - 10/11/2019 10:20 PM EDT Social Scientist contacted internal med regarding blood pressure 161/62 and temp of 99.9 after administering scheduled clonidine and lopressor. Pt rating headache 3/10. Social Scientist instructed to hold scheduled IV toradol and reglan. 0435- Social Scientist contacted internal med regarding BP. Social Scientist unable to keep SBP <160. Social Scientist administered PRN IV hydralazine at 2315 for a pressure in the 170s, pressure went to the 160s then back up.IV labetalol administered at 0315 for SBP in the low 180s. Pressure still in the 170s. No new orders at this time. Social Scientist instructed to continue to monitor. 0530- IV hydralazine and PO fioricet administered. No new orders at this time. Will continue to monitor BP. * Divina Ferris RN - 10/11/2019 10:15 PM EDT Social Scientist received call from Dr. Kendrick regarding pt [...] Hanson MD - 10/11/2019 2:46 PM EDT [facility] Internal Medicine Teaching Residency Program Inpatient Daily Progress Note Patient: Zachary Maynard Date of : 1945 Acct: [id number] Room: Admit date: 10/09/2019 Today's date: 10/11/19 [...] of COPD, primary hypertension was transferred from [facility] for management of infrarenal abdominal aortic aneurysm and for vascular consultation. States she started having lower back pain since . Describes the pain as constant, sharp, 10out of 10 in intensity associated with nausea. Patient went to the emergency department at [facility] to have hypertensive emergency with systolics above 200 and d-dimer was elevated. CT abdomen was done which showed 3.5 infrarenal aortic aneurysm, started on Cardene drip and pain medications we re given. Patient was transferred to [facility] found to be hypoxic in upper 80s, [...] awake insulin lispro 0-6 Units Subcutaneous TID WC insulin lispro 0-3 Units Subcutaneous Nightly metoprolol tartrate 100 mg Oral BID Continuous Infusions: [Held by provider] niCARdipine Stopped (10/10/191946) dextrose lactated ringers 75 mL/hr at 10/10/191956 PRN Medicationslabetalol, 10 mg, Q4H PRN hydrALAZINE, 10 mg, Q6H PRN nkmxvkneio-zgvavjdqjmhne-xglfguop, 1 tablet, Q4H PRN sodium chloride flush, [...] mL/hr, PRN Diagnostic Labs: CBC: Recent Labs 10/09/1944710/10/19 0627 10/11/19 0529 WBC 7.7 7.4 6.8 RBC 4.78 [...] HDL 50 10/09/2019 LIVER PROFILE: Recent Labs 10/09/19 0448 AST 11 ALT 15 BILITOT 0.39 ALKPHOS [...] Dwayne Hanson MD Internal Medicine Resident, PGY-1 [facility]; [place], [place] 10/11/2019, 2:46 PM * Michelle Pelletier [...] Ambulation Assistance: Independent Transfer Assistance: Independent Active Ux Engineer: Yes Occupation: Retired Additional Comments: pt reported [...] Plan Plan Times per week: 2-3 visits [facility] Score [facility] Inpatient Daily Activity Raw Score: 20 (10/11/19 132) [facility] Inpatient ADL T-Scale Score : 42.03 (10/11/191326) ADL Inpatient CMS 0-100% Score: 38.32 (10/11/191326) ADL Inpatient [facility] G-Code Modifier : CJ (10/11/191326) Goals Short [...] 10/11/2019 12:17 PM EDT Physical Therapy Facility/Department: [facility] CAR 2 Initial Assessment NAME: Zachary Maynard : 1945 [...] Ambulation Assistance: Independent Transfer Assistance: Independent Active Ux Engineer: Yes Occupation: Retired Additional Comments: pt reported [...] AM-PAC Inpatient Mobility Raw Score : 20 (10/11/19 1216) AM-PAC Inpatient T-Scale Score : 47.67 (10/11/19 1216) Mobility Inpatient CMS 0-100% Score: 35.83 (10/11/19 1216) Mobility Inpatient CMS G-Code Modifier : CJ [...] Orders received. * Viry Morelos APRN - [place] - 10/11/2019 7:24 AM EDT NEUROLOGY INPATIENT PROGRESS NOTE 10/11/2019 Current Exam: Chart reviewed. Discussed with RN. Patient reports improvement in headache, currently 5/10. She reports improved photophobia; denies nausea or [...] tested Data: Lab Results: CBC: Recent Labs 10/09/1944710/10/1962610/11/1929 WBC 7.7 7.4 6.8 HGB 14.2 13.5 13.7 PLT 202 170 196 BMP: Recent Labs 10/09/1944710/10/1962610/11/19528 NA 141 132* 135 K 3.9 3.5* [...] of Toradol 15mg, Reglan 5mg, Benadryl 12.5mg [id number] x3 -Continued blood pressure management as you are doing -May consider LP through IR for persistent headache -We will follow Please note that this note was generated using a voice recognition dictation software. Although every effort was made to ensure the accuracy of this automated overnight caregiver, some errors in overnight caregiver may have occurred. * Marely Guardado RN - 10/10/2019 9:18 PM EDT Perfect served consumer banker intermed: Patient is due to get 100mg [...] Hanson MD - 10/10/2019 11:58 AM EDT [facility] Internal Medicine Teaching Residency Program Inpatient Daily Progress Note Patient: Zachary Maynard Date of : 1945 Acct: [id number] Room: Admit date: 10/09/2019 Today's date: 10/10/19 [...] of COPD, primary hypertension was transferred from [facility] for management of infrarenal abdominal aortic aneurysm and for vascular consultation. States she started having lower back pain since . Describes the pain as constant, sharp, 10out of 10 in intensity associated with nausea. Patient went to the emergency department at [facility] to have hypertensive emergency with systolics above 200 and d-dimer was elevated. CT abdomen was done which showed 3.5 infrarenal aortic aneurysm, started on Cardene drip and pain medications we re given. Patient was transferred to [facility] found to be hypoxic in upper 80s, [...] awake insulin lispro 0-6 Units Subcutaneous TID WC [...] Q6H PRN Diagnostic Labs: CBC: Recent Labs 10/09/19 0448 10/10/19 0627 WBC 7.7 7.4 RBC 4.78 4.53 HGB 14.2 13.5 HCT 44.6 42.7 MCV 93.3 94.3 RDW 14.2 14.5* PLT 202 170 BMP: Recent Labs 10/09/19 0448 10/10/19 0627 NA 141 132* K 3.9 3.5* CL 99 97* CO2 24 25 BUN 17 14 CREATININE 0.63 0.50 FASTING LIPID PANEL: Lab Results Component Value Date HDL 50 10/09/2019 LIVER PROFILE: Recent Labs 10/09/19 0448 AST 11 ALT 15 BILITOT 0.39 ALKPHOS [...] Dwayne Hanson MD Internal Medicine Resident, PGY-1 [facility]; [place], [place] 10/10/2019, 12:00 PM * Duglas Dimas MD - 10/10/2019 11:22 AM EDT Attending [...] documented by the resident. Accelerated hypertension nicardipine ip Headaches due to above also may be side effect of nicardipine Patient has refused Norvasc and ERIK inhibitor's encourage for compliance so that we can taper off the nicardipine increase Aldactone to 50 * Carlene Potter RN - 10/10/2019 10:22 [...] team to admit as primary. * Megha Prieto, - 10/09/2019 4:07 AM EDT [facility] ED Emergency Department Emergency Medicine Resident [...] fentaNYL (SUBLIMAZE) injection 50 mcg ONCE Last MAR action: Given - by ANNIKA LÓPEZ on 10/09/19 at 0447 JOEL MELTON 10/09/19 0430 10/09/19 0419 ondansetron (ZOFRAN) injection 4 mg ONCE Last MAR action: Given - by ANNIKA LÓPEZ on [...] a 74 y.o. Female with transfer from [place]. Low back pain since . 3.4 infrarenal [...] [] Eloped FOLLOW-UP: Adina Bunch MD [address] [facility] [address] DISCHARGE MEDICATIONS: New Prescriptions No medications on [...] section and content) DATE CREATED AUTHOR 08/13/2017 [facility] DATE CREATED AUTHOR AUTHOR'S ORGANIZ ATION 11/03/2019 [facility] DATE CREATED AUTHOR AUTHOR'S ORGANIZ ATION 11/29/2020 [facility] DATE CREATED AUTHOR AUTHOR'S ORGANIZ ATION 06/18/2022 [facility] DATE CREATED AUTHOR AUTHOR'S ORGANIZ ATION 04/25/2023 [facility] DATE CREATED AUTHOR AUTHOR'S ORGANIZ ATION 05/09/2023 [facility] DATE CREATED AUTHOR AUTHOR'S ORGANIZ ATION 12/04/2023 [facility] Reason for Visit (unrecogniz ed section and content) Reason Comments Abdominal Pain Back Pain Status Reason Specialty Diagnoses / Procedures Referre d By Contact Referred To Contact Diagnoses AAA (abdominal aortic aneurysm) (HCC) Duglas Dimas MD [address] [place] [address] [facility] Care Teams (unrecognized sec tion and content) Team Status: Active Member Role Status Dates Adina Bunch MD Primary Care Provider Active Team Status: Inactive Member Role Status Dates Adina Bunch MD Primary Care Provider Active Start: April 08, 2023 End: April 08, 2023 Anju Lees MD Attending Provider Active Start: April 08, 2023 End: April 08, 2023 Team Status: Active Member Role Status Dates Adina Bunch MD Primary Care Provider Active Start: April 08, 2023 Anju Lees MD Attending Provider Active Start: April 08, 2023 Team Status: Inactive Member Role Status Dates Adina Bunch MD Primary Care Provider Active Start: [...] BE BASED ON THE PRIMARY CLINICAL RECORDS. [employer] provides no warranty or guarantee of the accuracy or completeness of information in this document.
[2023-12-04 13:09] LABS: Basophils Absolute Auto 0.1 10^3/uL (0.0-0.1); Basophils Percent Auto 0.7 % (0.2-2.0); Eosinophils Absolute Auto 0.2 10^3/uL (0.0-0.7); Eosinophils Percent Auto 2.7 % (0.9-7.0); Hematocrit 31.7 % (36.0-48.0); Hemoglobin 9.9 g/dL (12.0-16.0); Immature Granulocytes Abs Auto 0.03 10^3/uL (0.00-0.03); Immature Granulocytes Pct Auto 0.4 % (0.0-0.5); Lymphocytes Absolute Auto 1.5 10^3/uL (1.2-3.8); Lymphocytes Percent Auto 22.5 % (20.5-60.0); Mean Corpuscular HGB Conc 31.2 g/dL (29.9-35.2); Mean Corpuscular Hemoglobin 28.2 pg (26.7-34.0); Mean Corpuscular Volume 90.3 fL (81.0-99.0); Mean Platelet Volume 10.3 fL (9.5-13.5); Monocytes Absolute Auto 0.5 10^3/uL (0.3-0.8); Monocytes Percent Auto 6.8 % (1.7-12.0); Neutrophils Absolute Auto 4.5 10^3/uL (1.4-6.5); Neutrophils Percent Auto 66.9 % (43.0-75.0); Platelet Count 297 10^3/uL (150-450); Red Blood Count 3.51 10^6/uL (4.20-5.40); Red Cell Distribution Width 15.9 % (11.0-15.0); White Blood Count 6.8 10^3/uL (4.0-11.0)
[2023-12-04] MEDS: MORPHINE SULFATE 2 MG/ML SYRINGE IV (13:13)
[2023-12-04 13:27] LABS: Prothrombin Time 10.6 sec (9.0-11.6)
[2023-12-04 13:40] LABS: Alanine Aminotransferase 11 U/L (14-59); Albumin Globulin Ratio 0.8; Albumin Level 2.6 g/dL (3.4-5.0); Alkaline Phosphatase 90 U/L (46-116); Anion Gap 12.8; Aspartate Amino Transferase 11 U/L (15-37); Bilirubin Total 0.4 mg/dL (0.2-1.0); Calcium 9.1 mg/dL (8.5-10.1); Carbon Dioxide 26.3 mmol/L (21.0-32.0); Chloride 106 mmol/L (98-107); Estimated GFR (African America 46 (>=60 mL/min/1.73m^2); Estimated GFR (Non-African Ame 38 (>=60 mL/min/1.73m^2); Globulin 3.3 g/dL; Glucose 138 mg/dL (74-106); Magnesium 2.1 mg/dL (1.8-2.4); Potassium 4.1 mmol/L (3.5-5.1); Sodium 141 mmol/L (136-145); Total Protein 5.9 g/dL (6.4-8.2); Troponin I High Sensitivity 8.2 pg/mL (4.0-51.3)
--- NOTE | 2023-12-04 16:13 | ED_ITS ---
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 The patient have no cough she mentioned that having chest pain that is not related to taking deep breath or movement Upon arrival the patient initially did not have any chest pain as it resolved before arrival Related Data Home Medications ?Medication ?Instructions ?Recorded ?Confirmed albuterol sulfate 90 mcg/actuation 2 puff inhalation Q4H PRN 11/23/23 12/04/23 aerosol inhaler shortness of breath or wheezing amiodarone 200 mg tablet 200 mg PO DAILY 12/02/23 12/04/23 ezetimibe 10 mg tablet 10 mg PO DAILY 12/02/23 12/04/23 hydrochlorothiazide 25 mg tablet 50 mg PO DAILY 12/02/23 12/04/23 memantine 28 mg capsule 28 mg PO DAILY 12/02/23 12/04/23 sprinkle,extended release 24hr metformin 500 mg tablet,extended 500 mg PO BID 12/02/23 12/03/23 release 24 hr ropinirole 0.5 mg tablet 0.5 mg PO .QHS 12/02/23 12/04/23 tiotropium bromide 2.5 2 puff inhalation DAILY 12/02/23 12/04/23 mcg/actuation mist for inhalation (Spiriva Respimat) metoprolol tartrate 50 mg tablet 50 mg PO BID 12/03/23 12/04/23 Previous Rx's ?Medication ?Instructions ?Recorded apixaban 5 mg tablet (Eliquis) 5 mg PO BID #60 tabs 11/28/23 food supplemt, lactose-reduced 1 ea PO BID #5,688 mL 12/03/23 (Ensure Active Protein-Muscle oral liquid) isosorbide mononitrate 30 mg 30 mg PO QD #30 tabs 12/03/23 tablet,extended release 24 hr nitroglycerin 0.4 mg sublingual 0.4 mg sublingual Q5M PRN Chest 12/03/23 tablet Pain #20 tabs Allergies Allergy/AdvReac Type Severity Reaction Status Date / Time meperidine (From Demerol) Allergy Severe Anaphylaxis Verified 12/04/23 12:20 Review of Systems ROS Status of ROS 10 or more systems reviewed and unremark able except as noted in history and below [facility] Medical History COPD (chronic obstructive pulmonary disease) ?J44.9 - Chronic obstructive pulmonary disease, unspecified (ICD-10) History of uterine cancer ?Z85.42 - Personal history of malignant neoplasm of other parts of uterus (ICD-10) Edema ?R60.9 - Edema, unspecified (ICD-10) Diabetes ?E11.9 - Type 2 diabetes mellitus without complications (ICD-10) HTN (hypertension) ?I10 - Essential (primary) hypertension (ICD-10) Surgical History H/O: hysterectomy ?Z90.710 - Acquired absence of both cervix and uterus (ICD-10) Family History Father Family history of cancer Family history of COPD (chronic obstructive pulmonary disease) Mother Family history of diabetes mellitus Family history of hypertension Family history of myocardial infarction Family history of CHF (congestive heart failure) Social History (Updated 11/26/23 @ 14:13 by Darlyn Sterling RN) Within the past year, how often did you have a drink containing alcohol: never Score interpretation: A score less than 3 is consistent with normal alcohol consumption. Smoking status: Former smoker Non-prescribed substance use: denies use Highest level of school completed/degree received: 10th grade Little interest or pleasure in doing things: not at all Feeling down, depressed, or hopeless: not at all Exam Narrative Exam Narrative: Nurses notes and vital signs reviewed and patient is not hypoxic. General: Well-appearing and in no apparent distress. Skin: Warm, dry, no pallor noted. No rash. Head: Normocephalic, atraumatic. Neck: Supple, non-tender. Eye: Pupils are equal, round and EOMI. No scleral icterus. Ears, Nose, Mouth, and Throat: TM are clear, no nasal mucosal hypertrophy. Oral mucosa is moist, no posterior oropharynx erythema, uvula is mid-line Cardiovascular: Regular Rate and Rhythm without murmur, gallop or rub. Respiratory: No accessory muscle use or respiratory distress. Lungs are clear to auscultation, no wheezing, rales or rhonchi Chest Wall: no tenderness Back: No midline thoracic or lumbar vertebral tenderness. No CVA tenderness Musculoskeletal: normal ROM, no calf or popliteal tenderness, no lower extremity edema/swelling GI: Abdomen is soft, non-distended. Normal bowel sounds. No masses appreciated. No tenderness to palpation. No rebound, guarding, or rigidity noted. Neurological: A&O x4. No cranial nerve dysfunction observed. No truncal ataxia. Moves all extremities. Sensation intact. Psychiatric: Cooperative and interactive. Normal mood and affect. Constitutional Vital Signs, click to edit/add: Last Vital Signs Temp 99.1 F 12/04/23 12:20 Pulse 62 12/04/23 16:30 Resp 18 12/04/23 16:30 BP 167/71 H 12/04/23 16:30 Pulse Ox 96 12/04/23 16:30 O2 Del Method Room Air 12/04/23 13:20 O2 Flow Rate 2 12/04/23 13:20 Course Vital Signs Vital signs: Vital Signs Temperature 99.1 F 12/04/23 12:20 Pulse Rate 58 L 12/04/23 12:20 Respiratory Rate 20 12/04/23 12:20 Blood Pressure 182/101 H 12/04/23 12:20 Pulse Oximetry 99 12/04/23 12:20 Oxygen Delivery Method Room Air 12/04/23 12:20 Temperature 99.1 F 12/04/23 12:20 Pulse Rate 62 12/04/23 16:30 Respiratory Rate 18 12/04/23 16:30 Blood Pressure 167/71 H 12/04/23 16:30 Pulse Oximetry 96 12/04/23 16:30 Oxygen Delivery Method Room Air 12/04/23 13:20 Oxygen Delivery Flow Rate 2 12/04/23 13:20 MDM - Chest Pain MDM Narrative Medical decision making narrative: The patient EKG upon arrival showing a heart rate of 64 mostly feel mostly A-fib no ST elevation or depression The patient had another EKG when she was having chest pain also showing [address], with a heart rate of [address] elevation or depression still having A- fib Patient CBC and chemistry shows no elevation of the troponin and the BNP is improved the patient presentation could be secondary to unstable angina specially with history of coronary artery disease plan for an outpatient cardiac cath The patient second troponin also was not elevated Chest x-ray shows possible infiltrate although it is mostly atelectasis due to the patient current symptoms of not having any cough and chest pain only The patient case was discussed with Dr. Fulton in cardiology service and she agreed that the patient need to be transferred for cardiac cath The patient was given nitroglycerin in the ER 1 time when she arrived initially her blood pressure was 180 but after that she did not complain of any pain Lab Data Labs: Lab Results 12/04/23 12/04/23 Range/Units 12:54 14:15 WBC 6.8 (4.0-11.0) 10^3/uL RBC 3.51 L (4.20-5.40) 10^6/uL Hgb 9.9 L (12.0-16.0) g/dL Hct 31.7 L (36.0-48.0) % MCV 90.3 (81.0-99.0) fL MCH 28.2 (26.7-34.0) pg MCHC 31.2 (29.9-35.2) g/dL RDW 15.9 H (11.0-15.0) % Plt Count 297 (150-450) 10^3/uL MPV 10.3 (9.5-13.5) fL Neut % (Auto) 66.9 (43.0-75.0) % Lymph % (Auto) 22.5 (20.5-60.0) % [place] % (Auto) 6.8 (1.7-12.0) % Eos % (Auto) 2.7 (0.9-7.0) % Baso % (Auto) 0.7 (0.2-2.0) % Neut # (Auto) 4.5 (1.4-6.5) 10^3/uL Lymph # (Auto) 1.5 (1.2-3.8) 10^3/uL [place] # (Auto) 0.5 (0.3-0.8) 10^3/uL Eos # (Auto) 0.2 (0.0-0.7) 10^3/uL Baso # (Auto) 0.1 (0.0-0.1) 10^3/uL Abs Immat Gran (auto) 0.03 (0.00-0.03) 10^3/uL Imm/Tot Granulo (auto) 0.4 (0.0-0.5) % PT 10.6 (9.0-11.6) sec INR 1.00 Sodium 141 (136-145) mmol/L Potassium 4.1 (3.5-5.1) mmol/L Chloride 106 (98-107) mmol/L Carbon Dioxide 26.3 (21.0-32.0) mmol/L Anion Gap 12.8 BUN 16.0 (7.0-18.0) mg/dL Creatinine 1.33 H (0.55-1.02) mg/dL Est GFR ( Amer) 46 L (>=60 mL/min/1.73m^2) Est GFR (Non-Af Amer) 38 L (>=60 mL/min/1.73m^2) BUN/Creatinine Ratio 12.0 Glucose 138 H (74-106) mg/dL Calcium 9.1 (8.5-10.1) mg/dL Magnesium 2.1 (1.8-2.4) mg/dL Total Bilirubin 0.4 (0.2-1.0) mg/dL AST 11 L (15-37) U/L ALT 11 L (14-59) U/L Alkaline Phosphatase 90 (46-116) U/L Troponin I High Sens 8.2 8.0 (4.0-51.3) pg/mL NT-Pro-B Natriuret Pep 1487.0 (<=1800.0) pg/mL Total Protein 5.9 L (6.4-8.2) g/dL Albumin 2.6 L (3.4-5.0) g/dL Globulin 3.3 g/dL Albumin/Globulin Ratio 0.8 Discharge Plan Discharge Chief Complaint: Chest Pain Clinical Impression: Unstable angina Patient Disposition: [facility]
--- NOTE | 2023-12-04 18:58 | PC.NURSE ---
Patient put light on states pain came back 10/03 but is only there a minute and went away completely. Dr aware. No new orders
--- NOTE | 2023-12-04 19:50 | PC.NURSE ---
Patient and family updated on ETA for transport to [facility]. Pt denies any needs at this time.
[2023-12-04 20:38] LABS: Glucometer 94 mg/dL (74-106)
--- NOTE | 2023-12-04 23:15 | PC.NURSE ---
Report called to Magda MELGAR at [facility]
== END 2023-12-04 23:16 | disposition short-term general hospital (02) ==
PROVIDERS: Emergency Provider Emergency Medicine; PCP Family Medicine
DX: I20.0 Unstable angina (principal); Z87.891 Personal history of nicotine dependence
CPT/HCPCS: 36415; 71045; 80053; 83735; 83880; 84484; 85025; 85610; 93005; 96374; 99285; J2270

== ENCOUNTER 2023-12-08 12:59 | Outpatient (OUT) | payer MEDICARE, SELFPAY ==
--- NOTE | 2023-12-08 13:02 | VEIN_ITS ---
The [address] [address] Patient Name: ZACHARY MAYNARD MRN: [id number] date: 1945 Sex: F Assigned Patient Location: Current Patient Location: Accession/Order Number: [id number] Exam Date: 12/08/2023 13:03 Report Date: 12/08/2023 13:42 At the request of: ADINA BUNCH Procedure: VC SEGMENTAL PRESSURES EXAM: VC SEGMENTAL PRESSURES HISTORY: R09.89 COMPARISON: None. FINDINGS: Segmental pressures presented as follows (right, left) in mmHg. 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
== END 2023-12-08 13:00 | disposition home or self-care (01) ==
LOC: VC 12:59
PROVIDERS: PCP Family Medicine; Visit Provider Family Medicine
DX: R09.89 Other specified symptoms and signs involving the circulatory and respiratory systems (principal)
CPT/HCPCS: 93923

== ENCOUNTER 2024-01-06 07:54 | Outpatient (OUT) | payer MEDICARE, SELFPAY ==
--- NOTE | 2024-01-06 07:57 | US_ITS ---
The [address] [address] Patient Name: ZACHARY MAYNARD MRN: [id number] date: 1945 Sex: F Assigned Patient Location: US Current Patient Location: US Accession/Order Number: [id number] Exam Date: 01/06/2024 08:00 Report Date: 01/06/2024 12:53 At the request of: DIPTI HUDSON Procedure: US abdominal aortic aneurysm EXAM: US abdominal aortic aneurysm HISTORY: Infrarenal Abdominal Aortic Aneurysm COMPARISON: None. TECHNIQUE: Real-time ultrasound imaging of the aorta. FINDINGS: There is aneurysmal dilatation of the abdominal aorta with specific aortic measurements as follows: Proximally 2.8 x 3.1 cm. Mid: 5.5 x 5.8 cm. Distally: 2.1 x 2.0 cm. The right and left common iliac arteries measure 1.3 x 1.5 cm. Impression 1. Abdominal aortic aneurysm measuring upwards of 5.8 cm. Electronically authenticated by: FOX ACEVEDO Date: 01/06/2024 12:53
== END 2024-01-06 07:55 | disposition home or self-care (01) ==
LOC: US 07:54
PROVIDERS: PCP Family Medicine; Visit Provider Internal Medicine Cardiovascular Disease
DX: I71.43 Infrarenal abdominal aortic aneurysm, without rupture (principal)
CPT/HCPCS: 76775

== ENCOUNTER 2024-02-01 20:16 | Emergency (ER) | payer MEDICARE, SELFPAY ==
[2024-02-01] VITALS (13 sets, daily range): BP systolic 171–184; BP diastolic 83–119; PULSE 66–76; TEMP 36.8; O2SAT 86–92; BMI 23.7
--- NOTE | 2024-02-01 20:26 | CT_ITS ---
The [address] [address] Patient Name: ZACHARY MAYNARD MRN: [id number] date: 1945 Sex: F Assigned Patient Location: ER Current Patient Location: .[facility] Accession/Order Number: [id number] Exam Date: 02/01/2024 20:55 Report Date: 02/01/2024 22:29 At the request of: RYAN MARKER Procedure: CT head/brain wo con EXAM: CT head/brain wo con INDICATION: 78 years old; Female. Change in mental status. TECHNIQUE: CT Head (ax/cor/sag reformats). Ionizing radiation dose reduced via iterative reconstruction/FBP blend and body size kV/mA adjustment. Comparison: MRI the brain dated 05/29/2022. FINDINGS: POSTOPERATIVE CHANGES: None. BRAIN PARENCHYMA: No intraparenchymal or extra-axial hemorrhage. No mass effect. No midline shift or herniation. Patchy low-density in the white well without mass effect. VENTRICLES/EXTRA-AXIAL SPACES: Enlarged but within normal limits for patient's age. SINUSES/MASTOIDS: The visualized sinuses are clear although the maxillary sinuses are not completely included. Mastoids and middle ears are clear. MSK: No displaced or depressed calvarial fracture. OTHER: No hyperdense intraluminal thrombus. There is vascular calcification in the anterior and posterior circulation. CT/CT head/brain wo con IMPRESSION: 1. No acute intracranial abnormality. No hemorrhage or mass effect. 2. Nonspecific white matter changes. 3. Vascular calcification. Electronically authenticated by: KEENAN THIBODEAUX Date: 02/01/2024 22:29
[2024-02-01 20:31] LABS: Basophils Percent Auto 0.4 % (0.2-2.0); Eosinophils Absolute Auto 0.4 10^3/uL (0.0-0.7); Eosinophils Percent Auto 3.8 % (0.9-7.0); Hematocrit 28.8 % (36.0-48.0); Hemoglobin 8.8 g/dL (12.0-16.0); Immature Granulocytes Abs Auto 0.08 10^3/uL (0.00-0.03); Immature Granulocytes Pct Auto 0.8 % (0.0-0.5); Lymphocytes Absolute Auto 1.2 10^3/uL (1.2-3.8); Lymphocytes Percent Auto 12.9 % (20.5-60.0); Mean Corpuscular HGB Conc 30.6 g/dL (29.9-35.2); Mean Corpuscular Hemoglobin 28.3 pg (26.7-34.0); Mean Corpuscular Volume 92.6 fL (81.0-99.0); Mean Platelet Volume 12.4 fL (9.5-13.5); Monocytes Absolute Auto 0.4 10^3/uL (0.3-0.8); Monocytes Percent Auto 3.8 % (1.7-12.0); Neutrophils Absolute Auto 7.5 10^3/uL (1.4-6.5); Neutrophils Percent Auto 78.3 % (43.0-75.0); Platelet Count 164 10^3/uL (150-450); Red Blood Count 3.11 10^6/uL (4.20-5.40); Red Cell Distribution Width 16.6 % (11.0-15.0); White Blood Count 9.6 10^3/uL (4.0-11.0)
--- NOTE | 2024-02-01 20:34 | ECG_ITS ---
The [facility] Test Date: 2024-02-01 Pat Name: ZACHARY MAYNARD Department: Room: - Gender: Female Coroner Forensic Technician: : 1945 Requested By: ADINA BUNCH Order Number: [id number] Reading MD: ADINA BUNCH Measurements Intervals [place] Rate: 70 P: 70 GA: 170 QRS: 61 QRSD: 88 T: 60 QT: 378 QTc: 399 Interpretive Statements 1100 Sinus rhythm 1102 Sinus arrhythmia 9110 normal ECG Compared to ECG 12/04/2023 12:28:07 Atrial fibrillation no longer present Electronically Signed On 02-02-2024 5:29:27 EST by ADINA BUNCH
--- NOTE | 2024-02-01 20:46 | XR_ITS ---
The [address] [address] Patient Name: ZACHARY MAYNARD MRN: [id number] date: 1945 Sex: F Assigned Patient Location: ER Current Patient Location: ER Accession/Order Number: [id number] Exam Date: 02/01/2024 20:55 Report Date: 02/01/2024 22:45 At the request of: RYAN MARKER Procedure: XR acute abdomen series EXAM: XR acute abdomen series HISTORY: AMS, post op constipation COMPARISON: None. TECHNIQUE: Single frontal view of the chest as well as upright and supine views of the abdomen FINDINGS: Enlarged cardiac silhouette is seen. Small bilateral pleural effusion is suspected. No obvious pneumothorax is seen. Prominence of the bronchovascular markings is seen, suspicious for pulmonary edema and/or infectious process. Nonspecific bowel gas pattern is seen. No air-filled distended loops of bowel is seen to suggest bowel obstruction. No gross pneumoperitoneum is seen. Large volume of stool is seen throughout the colon. Aortobiiliac stent is seen in place. No obvious acute osseous abnormality is seen. XR/XR acute abdomen series IMPRESSION: Small bilateral pleural effusion is suspected. Prominence of the bronchovascular markings is seen, suspicious for pulmonary edema and/or infectious process. Large volume of stool seen in the colon. Electronically authenticated by: CHELE AYALA Date: 02/01/2024 22:45
[2024-02-01 20:49] LABS: Lactate/Lactic Acid 0.7 mmol/L (0.4-2.0)
--- NOTE | 2024-02-01 20:50 | ED.GENADUL1 ---
HPI HPI - General Adult General Chief complaint: Shortness of Breath/Dyspnea Stated complaint: Altered Mental Status Time Seen by Provider: 02/01/24 20:19 Source: patient Mode of arrival: ambulance History of Present Illness HPI narrative: This 78-year-old female with a history of heart disease, kidney disease who recently had a coronary catheterization at [facility] and did not require any stenting and has a history of paroxysmal atrial fibrillation and underwent repair of an abdominal aorta at [facility] last Friday with Dr. Yates, vascular surgery, is brought to the emergency department by EMS from home for evaluation of altered mental status. According to the patient's and son. She has been having episodes of intermittent delirium since getting home. The patient's son states that she has been eating but has not had a bowel movement in approximately 1 week. She has not had any vomiting or diarrhea. She has not been noted to have a fever. The patient does not recall having her abdominal aorta repair at [facility], she thinks it was 5 weeks ago not 5 days ago. She states she thinks she is in emergency department for shortness of breath. She does take daily Eliquis. Related Data Home Medications ?Medication ?Instructions ?Recorded ?Confirmed albuterol sulfate 90 mcg/actuation 2 puff inhalation Q4H PRN 11/23/23 02/01/24 aerosol inhaler shortness of breath or wheezing amiodarone 200 mg tablet 200 mg PO DAILY 12/02/23 02/01/24 ezetimibe 10 mg tablet 10 mg PO DAILY 12/02/23 02/01/24 memantine 28 mg capsule 28 mg PO DAILY 12/02/23 02/01/24 sprinkle,extended release 24hr metformin 500 mg tablet,extended 500 mg PO BID 12/02/23 02/01/24 release 24 hr ropinirole 0.5 mg tablet 0.5 mg PO .QHS 12/02/23 02/01/24 tiotropium bromide 2.5 2 puff inhalation DAILY 12/02/23 02/01/24 mcg/actuation mist for inhalation (Spiriva Respimat) metoprolol tartrate 50 mg tablet 50 mg PO BID 12/03/23 02/01/24 docusate sodium 100 mg capsule 100 mg PO DAILY 02/01/24 02/01/24 fexofenadine 180 mg tablet 180 mg PO DAILY 02/01/24 02/01/24 furosemide 20 mg tablet 20 mg PO DAILY 02/01/24 02/01/24 hydroxyzine HCl 25 mg tablet mg 02/01/24 lidocaine 5 % topical patch 1 patch topical DAILY 02/01/24 02/01/24 metoprolol tartrate 25 mg tablet mg 02/01/24 polyethylene glycol 3350 17 17 g PO DAILY 02/01/24 02/01/24 gram/dose oral powder tramadol 50 mg tablet mg 02/01/24 triamcinolone acetonide 0.1 % applic topical 02/01/24 topical cream Previous Rx's ?Medication ?Instructions ?Recorded apixaban 5 mg tablet (Eliquis) 5 mg PO BID #60 tabs 11/28/23 food supplemt, lactose-reduced 1 ea PO BID #5,688 mL 12/03/23 (Ensure Active Protein-Muscle oral liquid) isosorbide mononitrate 30 mg 30 mg PO QD #30 tabs 12/03/23 tablet,extended release 24 hr nitroglycerin 0.4 mg sublingual 0.4 mg sublingual Q5M PRN Chest 12/03/23 tablet Pain #20 tabs Allergies Allergy/AdvReac Type Severity Reaction Status Date / Time meperidine (From Demerol) Allergy Severe Anaphylaxis Verified 02/01/24 20:25 Opioid HPI Opioid Management Most Recent Opioid Data: Last Pain Scale 1 12/04/23 13:13 12/04/23 Last ORT Total Score 0 12/02/23 21:33 12/02/23 Last ORT Risk Category Low Risk 12/02/23 21:33 12/02/23 Review of Systems ROS Status of ROS 10 or more systems reviewed and unremarkable except as noted in history and below and other (Patient is confused upon arrival) [facility] Medical History (Updated 02/02/24 @ 01:57 by Tiffany Steve MD) Severe protein-calorie malnutrition ?E43 - Unspecified severe protein-calorie malnutrition (ICD-10) Systolic heart failure ?I50.20 - Unspecified systolic (congestive) heart failure (ICD-10) Hypertension ?I10 - Essential (primary) hypertension (ICD-10) Non-sustained ventricular tachycardia ?I47.29 - Other ventricular tachycardia (ICD-10) Chest pain ?R07.9 - Chest pain, unspecified (ICD-10) Essential (primary) hypertension ?I10 - Essential (primary) hypertension (ICD-10) ZAVALA (dyspnea on exertion) ?R06.09 - Other forms of dyspnea (ICD-10) Elevated troponin level not due myocardial infarction ?R79.89 - Other specified abnormal findings of blood chemistry (ICD-10) Atrial fibrillation ?I48.91 - Unspecified atrial fibrillation (ICD-10) Dehydration ?E86.0 - Dehydration (ICD-10) Upper respiratory infection ?J06.9 - Acute upper respiratory infection, unspecified (ICD-10) COPD (chronic obstructive pulmonary disease) ?J44.9 - Chronic obstructive pulmonary disease, unspecified (ICD-10) History of uterine cancer ?Z85.42 - Personal history of malignant neoplasm of other parts of uterus (ICD-10) Edema ?R60.9 - Edema, unspecified (ICD-10) Diabetes ?E11.9 - Type 2 diabetes mellitus without complications (ICD-10) HTN (hypertension) ?I10 - Essential (primary) hypertension (ICD-10) Surgical History (Updated 02/01/24 @ 21:12 by Argentina Keenan) S/P abdominal aortic aneurysm repair ?Z98.890 - Other specified postprocedural states (ICD-10) ?Z86.79 - Personal history of other diseases of the circulatory system (ICD-10) History of abdominal aortic aneurysm repair ?Z98.890 - Other specified postprocedural states (ICD-10) H/O: hysterectomy ?Z90.710 - Acquired absence of both cervix and uterus (ICD-10) Family History Father Family history of cancer Family history of COPD (chronic obstructive pulmonary disease) Mother Family history of diabetes mellitus Family history of hypertension Family history of myocardial infarction Family history of CHF (congestive heart failure) Social History (Updated 11/26/23 @ 14:13 by Darlyn Sterling RN) Within the past year, how often did you have a drink containing alcohol: never Score interpretation: A score less than 3 is consistent with normal alcohol consumption. Smoking status: Former smoker Non-prescribed substance use: denies use Highest level of school completed/degree received: 10th grade Little interest or pleasure in doing things: not at all Feeling down, depressed, or hopeless: not at all Exam Narrative Exam Narrative: Vital signs and Nursing Notes reviewed: Patient is afebrile with a normal pulse, blood pressure is elevated at 184/83 and upon arrival she was hypoxic with pulse ox in the low 90s. She was placed on supplemental oxygen with sats into the mid 90s General: Awake, alert, pleasantly confused, patient thinks she is here because she is short of breath and also here visiting her granddaughter HEENT: Normocephalic atraumatic, mucous membranes are moist and pink, eyes are clear, normal conjunctiva, vision is grossly intact, posterior pharynx is normal in appearance. Neck: Supple, no meningeal signs, no anterior or posterior cervical lymphadenopathy Chest: Faint expiratory wheezing in the left upper lung elias, lungs are otherwise clear with good air entry CVS: Regular rate and rhythm S1-S2, no murmurs rubs or gallops, pulses are brisk and equal bilaterally ABD: Softly distended, puncture sites noted in the inguinal areas bilaterally without any appreciable swelling bleeding bruising or other abnormality Extremities: Moving all extremities, no lower extremity tenderness or swelling noted, negative Homans' sign, pulses are brisk and equal bilaterally Skin: Normal in appearance without rash,pallor, petechiae or purpura Neuro: No gross focal deficits, patient is moving all extremities, speech is clear, there is no facial droop however she is confused as to recent events Constitutional Vital Signs, click to edit/add: Last Vital Signs Temp 98.3 F 02/01/24 20:18 Pulse 61 02/02/24 02:30 Resp 17 02/02/24 02:30 BP 139/49 02/02/24 02:30 Pulse Ox 90 L 02/02/24 02:30 O2 Del Method Nasal Cannula 02/01/24 20:35 O2 Flow Rate 2 02/01/24 20:35 Course Vital Signs Vital signs: Vital Signs Temperature 98.3 F 02/01/24 20:18 Pulse Rate 66 02/01/24 20:18 Respiratory Rate 18 02/01/24 20:18 Blood Pressure 184/83 H 02/01/24 20:18 Pulse Oximetry 87 L 02/01/24 20:18 Oxygen Delivery Method Room Air 02/01/24 20:18 Temperature 98.3 F 02/01/24 20:18 Pulse Rate 61 02/02/24 02:30 Respiratory Rate 17 02/02/24 02:30 Blood Pressure 139/49 02/02/24 02:30 Pulse Oximetry 90 L 02/02/24 02:30 Oxygen Delivery Method Nasal Cannula 02/01/24 20:35 Oxygen Delivery Flow Rate 2 02/01/24 20:35 Medical Decision Making MDM Narrative Medical decision making narrative: This 78-year-old female with a history of chronic kidney disease, hypertension, cardiac disease who recently had a cardiac catheterization but did not require any stenting and who also had abdominal aortic aneurysm repair at [facility] last Friday and was sent home earlier today is brought to the emergency department by EMS from home for episodes of confusion. The patient's daughter admits that she does have a history of dementia. The patient's family admits that he was she was having episodes of confusion while she was hospitalized. She denies any chest pain but complains of some mild shortness of breath and constipation. She is on polyethylene glycol which she started earlier today and also docusate. She is on 20 mg of IV Lasix according to her MAR. An EKG done upon arrival was a sinus rhythm with no acute changes. An IV was placed and routine labs are ordered and are reviewed. She has a normal white count. Her hemoglobin is mildly low at 8.8. INR is 1.05. She has a normal troponin. BNP is elevated at 7664. She was noted to be mildly hypoxic upon arrival without a history of COPD or tobacco use. She was placed on supplemental oxygen. Blood gas was ordered. She has a normal pH. CO2 is minimally elevated at 46. O2 was mildly low at 57.3 with a pulse ox of 90.7 on the blood gas. Chest x-ray shows diffuse interstitial markings consistent with CHF. CT scan of the brain is negative for acute findings. She was given 20 mg of IV Lasix. Abdominal x-ray shows a nonspecific bowel gas pattern with no free air and a moderate amount of stool consistent with constipation. Urinalysis was ordered and before she was able to urinate her daughter called me to the room stating that he she feels that her stomach is becoming more distended while she lies there. Greco catheter was placed. Urine was sent to the lab and is negative for infection. CT scan of her abdomen pelvis to rule out leaking from her recently repaired aortic aneurysm or further abdominal pathology. CT scan of the abdomen pelvis shows the endograft present within the abdominal aorta with extension into the common iliac arteries bilaterally with some air present within the wall of the thrombosed aorta from recent vascular intervention. There is no evidence of a leak within the limits of this examination. The aneurysm of the abdominal aorta and surrounding luminal thrombus measured up to 5.6 x 5.5 cm. The patient have episodes of crying out in pain stating that her back hurts. She was medicated with IV morphine for her back pain. While the patient has been on the manager monitoring she has been in sinus rhythm with episodes of bigeminy and runs of V. tach. The V. tach is not sustained. She was given 2 g of IV magnesium and 5 mg of IV Lopressor for the arrhythmia. Pacer pads were placed on the patient. I will speak to [facility] regarding transfer. Case was discussed with Dr Johnson from cardiology at [facility] who will see her in consult and with the Hospitalist, Dr Ackerman. She is accepted for transfer to the Step down unit at [facility], Repeat labs are ordered. The patient's hemoglobin is stable. Her troponin has gone up from 39.3-79.7. After the magnesium and Lopressor she has had fewer PVCs, couplets or runs of ventricular tachycardia. She was at 1 point noted to have a low glucose on her monitor and was given juice and started on D5 LR. Critical care time 45 minutes Medical Records Medical records reviewed: Yes I reviewed the patient's medical records Medical records narrative: The [address] [address] [address] Scan Report Signed Patient: ZACHARY MAYNARD MR#: [id number] : 1945 Acct:[id number] Age/Sex: 78 / F ADM Date: 02/01/24 Loc: ER Attending Dr: Ordering Physician: Tiffany Steve Date of Service: 02/01/24 Procedure(s): CT head/brain wo con Accession Number(s): [id number] cc: Velasquez Langley M.D.~ The [address] [address] Patient Name: ZACHARY MAYNARD MRN: [id number] date: 1945 Sex: F Assigned Patient Location: ER Current Patient Location: ED.MAIN Accession/Order Number: [id number] Exam Date: 02/01/2024 20:55 Report Date: 02/01/2024 22:29 At the request of: TIFFANY STEVE Procedure: CT head/brain wo con EXAM: CT head/brain wo con INDICATION: 78 years old; Female. Change in mental status. TECHNIQUE: CT Head (ax/cor/sag reformats). Ionizing radiation dose reduced via iterative reconstruction/FBP blend and body size kV/mA adjustment. Comparison: MRI the brain dated 05/29/2022. FINDINGS: POSTOPERATIVE CHANGES: None. BRAIN PARENCHYMA: No intraparenchymal or extra-axial hemorrhage. No mass effect. No midline shift or herniation. Patchy low-density in the white well without mass effect. VENTRICLES/EXTRA-AXIAL SPACES: Enlarged but within normal limits for patient's age. SINUSES/MASTOIDS: The visualized sinuses are clear although the maxillary sinuses are not completely included. Mastoids and middle ears are clear. MSK: No displaced or depressed calvarial fracture. OTHER: No hyperdense intraluminal thrombus. There is vascular calcification in the anterior and posterior circulation. CT/CT head/brain wo con IMPRESSION: 1. No acute intracranial abnormality. No hemorrhage or mass effect. 2. Nonspecific white matter changes. 3. Vascular calcification. Electronically authenticated by: KEENAN THIBODEAUX Date: 02/01/2024 22:[address] [address] XRay Report Signed Patient: ZACHARY MAYNARD MR#: [id number] : 1945 Acct:[id number] Age/Sex: 78 / F ADM Date: 02/01/24 Loc: ER Attending Dr: Ordering Physician: Tiffany Steve Date of Service: 02/01/24 Procedure(s): XR acute abdomen series Accession Number(s): [id number] cc: Velasquez Langley M.D.; Tiffany Steve~ The [address] [address] Patient Name: ZACHARY MAYNARD MRN: [id number] date: 1945 Sex: F Assigned Patient Location: ER Current Patient Location: ER Accession/Order Number: [id number] Exam Date: 02/01/2024 20:55 Report Date: 02/01/2024 22:45 At the request of: TIFFANY MARKER Procedure: XR acute abdomen series EXAM: XR acute abdomen series HISTORY: AMS, post op constipation COMPARISON: None. TECHNIQUE: Single frontal view of the chest as well as upright and supine views of the abdomen FINDINGS: Enlarged cardiac silhouette is seen. Small bilateral pleural effusion is suspected. No obvious pneumothorax is seen. Prominence of the bronchovascular markings is seen, suspicious for pulmonary edema and/or infectious process. Nonspecific bowel gas pattern is seen. No air-filled distended loops of bowel is seen to suggest bowel obstruction. No gross pneumoperitoneum is seen. Large volume of stool is seen throughout the colon. Aortobiiliac stent is seen in place. No obvious acute osseous abnormality is seen. XR/XR acute abdomen series IMPRESSION: Small bilateral pleural effusion is suspected. Prominence of the bronchovascular markings is seen, suspicious for pulmonary edema and/or infectious process. Large volume of stool seen in the colon. Electronically authenticated by: CHELE AYALA Date: 02/01/2024 22:45 [place] [address] CT Scan Report Signed Patient: ZACHARY MAYNARD MR#: [id number] : 1945 Acct:[id number] Age/Sex: 78 / F ADM Date: 02/01/24 Loc: ER Attending Dr: Ordering Physician: Tiffany Steve Date of Service: 02/01/24 Procedure(s): CT angio abdomen pelvis Accession Number(s): [id number] cc: Velasquez Langley M.D.~ The [place] [address] Patient Name: ZACHARY MAYNARD MRN: [id number] date: 1945 Sex: F Assigned Patient Location: ER Current Patient Location: ER Accession/Order Number: [id number] Exam Date: 02/01/2024 23:12 Report Date: 02/02/2024 00:41 At the request of: TIFFANY STEVE Procedure: CT angio abdomen pelvis CT ABDOMEN AND PELVIS WITH CONTRAST: INDICATION: post op AAA repair with abd pain. COMPARISON: CT abdomen and pelvis dated 10/19/2019. TECHNIQUE:Multiple thin section transaxial slices were acquired through the abdomen and pelvis with intravenous contrast. 3-D, Coronal and sagittal reconstructed images were reviewed. Oral contrastWas not administered. Images were obtained per CT angiogram protocol. FINDINGS: There is breathing motion artifact contributing to some image degradation of this examination. LOWER CHEST: There is smooth interlobular septal thickening in the lung bases consistent with a degree of interstitial edema. There are small bilateral pleural effusions, right greater than left. There is atelectasis in the adjacent lungs. There is a small hiatal hernia. LIVER: The liver is unremarkable. GALLBLADDER AND BILIARY SYSTEM: No obvious ductal dilation. There is cholelithiasis. SPLEEN: The spleen is unremarkable. PANCREAS: The pancreas is unremarkable. ADRENAL GLANDS: The adrenal glands are unremarkable. KIDNEYS AND URETERS: There is motion artifact which is contributing to image degradation of the kidneys. There is pelvocaliectasis of both kidneys with mild dilation of the proximal mid ureters. There are no obstructing urologic calcifications. There is also diminished enhancement along the inferior left kidney. There is significant motion of this portion of the kidney, and this could be artifact. However, the possibility of renal infarct cannot be excluded. VASCULATURE: An endograft is present within the abdominal aorta with extension into the common iliac arteries bilaterally. There is some air present within the wall of the thrombosed aorta from recent vascular intervention. There is no evidence of a leak within the limits of this examination. 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 PERITONEUM/RETROPERITONEUM: There is a trace amount of free fluid in the pelvis. LYMPH NODES: No suspicious lymphadenopathy. GASTROINTESTINAL TRACT: The bowel is normal in caliber.There is chronic colonic diverticulosis of the colon without acute inflammation.The appendix is not well delineated and may be absent or diminutive. BLADDER: There is a tiny focus of air in the anterior urinary bladder possibly iatrogenic. REPRODUCTIVE SYSTEM: The uterus is absent. BODY WALL: There is a tiny fat-containing umbilical hernia. BONES: There is mild endplate degenerative disc disease throughout the thoracolumbar spine. CT/CT angio abdomen pelvis IMPRESSION: 1. 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 No evidence of leak. 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 2. There is motion artifact degrading image quality, especially with the kidneys. There is hypodensity in the cortex of the lower left kidney which could be artifactual. The possibility of renal infarct cannot entirely be excluded. 3. Pelvic caliectasis of the kidneys and mild dilation of the mid and proximal ureters without obstructing urologic calcifications. This is nonspecific. Correlate with urinalysis for signs of underlying infectious process. 4. Mild interstitial edema in the lower chest with small bilateral pleural effusions. Electronically authenticated by: KIMBERLY WALTON Date: 02/02/2024 00:41 Lab Data Lab results reviewed: Yes I reviewed the patient's lab results Labs: Lab Results 02/01/24 02/01/24 02/01/24 Range/Units 20:15 21:16 23:54 WBC 9.6 (4.0-11.0) 10^3/uL RBC 3.11 L (4.20-5.40) 10^6/uL Hgb 8.8 L (12.0-16.0) g/dL Hct 28.8 L (36.0-48.0) % MCV 92.6 (81.0-99.0) fL MCH 28.3 (26.7-34.0) pg MCHC 30.6 (29.9-35.2) g/dL RDW 16.6 H (11.0-15.0) % Plt Count 164 (150-450) 10^3/uL MPV 12.4 (9.5-13.5) fL Neut % (Auto) 78.3 H (43.0-75.0) % Lymph % (Auto) 12.9 L (20.5-60.0) % Sterling % (Auto) 3.8 (1.7-12.0) % Eos % (Auto) 3.8 (0.9-7.0) % Baso % (Auto) 0.4 (0.2-2.0) % Neut # (Auto) 7.5 H (1.4-6.5) 10^3/uL Lymph # (Auto) 1.2 (1.2-3.8) 10^3/uL Sterling # (Auto) 0.4 (0.3-0.8) 10^3/uL Eos # (Auto) 0.4 (0.0-0.7) 10^3/uL Baso # (Auto) 0.0 (0.0-0.1) 10^3/uL Abs Immat Gran (auto) 0.08 H (0.00-0.03) 10^3/uL Imm/Tot Granulo (auto) 0.8 H (0.0-0.5) % PT 11.1 (9.0-11.6) sec INR 1.05 Puncture Site Left radial ABG pH 7.382 (7.350-7.450) ABG pCO2 46.4 H (35.0-45.0) mmHg ABG pO2 57.3 L* (80.0-100.0) mmHg ABG HCO3 27.6 H (22.0-26.0) mmol/L ABG O2 Saturation 90.7 % ABG Base Excess 2.5 H (-2.0-2.0) mmol/L Andrés Test Pos (POSITIVE) O2 Liters/Min 2 Sodium 139 (136-145) mmol/L Potassium 4.4 (3.5-5.1) mmol/L Chloride 103 (98-107) mmol/L Carbon Dioxide 31.2 (21.0-32.0) mmol/L Anion Gap 9.2 BUN 22.0 H (7.0-18.0) mg/dL Creatinine 1.44 H (0.55-1.02) mg/dL Est GFR ( Amer) 42 L (>=60 mL/min/1.73m^2) Est GFR (Non-Af Amer) 35 L (>=60 mL/min/1.73m^2) BUN/Creatinine Ratio 15.3 Glucose 113 H (74-106) mg/dL Lactate 0.7 (0.4-2.0) mmol/L Calcium 8.4 L (8.5-10.1) mg/dL Total Bilirubin 0.6 (0.2-1.0) mg/dL AST 14 L (15-37) U/L ALT 14 (14-59) U/L Alkaline Phosphatase 100 (46-116) U/L Troponin I High Sens 38.3 (4.0-51.3) pg/mL NT-Pro-B Natriuret Pep 7664.0 H* (<=1800.0) pg/mL Total Protein 6.0 L (6.4-8.2) g/dL Albumin 2.6 L (3.4-5.0) g/dL Globulin 3.4 g/dL Albumin/Globulin Ratio 0.8 Urine Color Lt. yellow (YELLOW) Urine Clarity Clear (CLEAR) Urine pH 6.0 (5.0-9.0) Ur Specific [place] 1.015 (1.005-1.025) Urine Protein 30 A (NEG/TRACE) mg/dL Urine Glucose (UA) Negative (NEGATIVE) mg/dL Urine Ketones Negative (NEGATIVE) mg/dL Urine Occult Blood Negative (NEGATIVE) Urine Nitrite Negative (NEGATIVE) Urine Bilirubin Negative (NEGATIVE) Urine Urobilinogen 0.2 (0.2-1.0) EU/dL Ur Leukocyte Esterase Negative (NEGATIVE) Urine RBC 0-2 (0-2) #/HPF Urine WBC 0-2 A (NONE SEEN) #/HPF Ur Squamous Epith Cells Rare (NONE/RARE) #/LPF Urine Crystals None seen (None Seen) #/HPF Urine Bacteria Trace A (NONE SEEN) #/HPF Urine Casts None seen (NONE SEEN) #/LPF Urine Mucus None seen (NONE SEEN) Ur Culture Indicated? No POC Glucose (74-106) mg/dL 02/02/24 02/02/24 Range/Units 02:05 02:19 WBC 9.6 (4.0-11.0) 10^3/uL RBC 3.14 L (4.20-5.40) 10^6/uL Hgb 9.0 L (12.0-16.0) g/dL Hct 28.7 L (36.0-48.0) % MCV 91.4 (81.0-99.0) fL MCH 28.7 (26.7-34.0) pg MCHC 31.4 (29.9-35.2) g/dL RDW 16.5 H (11.0-15.0) % Plt Count 164 (150-450) 10^3/uL MPV 11.4 (9.5-13.5) fL Neut % (Auto) 81.3 H (43.0-75.0) % Lymph % (Auto) 10.4 L (20.5-60.0) % Sterling % (Auto) 4.8 (1.7-12.0) % Eos % (Auto) 2.5 (0.9-7.0) % Baso % (Auto) 0.3 (0.2-2.0) % Neut # (Auto) 7.8 H (1.4-6.5) 10^3/uL Lymph # (Auto) 1.0 L (1.2-3.8) 10^3/uL Sterling # (Auto) 0.5 (0.3-0.8) 10^3/uL Eos # (Auto) 0.2 (0.0-0.7) 10^3/uL Baso # (Auto) 0.0 (0.0-0.1) 10^3/uL Abs Immat Gran (auto) 0.07 H (0.00-0.03) 10^3/uL Imm/Tot Granulo (auto) 0.7 H (0.0-0.5) % PT (9.0-11.6) sec INR Puncture Site ABG pH (7.350-7.450) ABG pCO2 (35.0-45.0) mmHg ABG pO2 (80.0-100.0) mmHg ABG HCO3 (22.0-26.0) mmol/L ABG O2 Saturation % ABG Base Excess (-2.0-2.0) mmol/L Andrés Test (POSITIVE) O2 Liters/Min Sodium (136-145) mmol/L Potassium (3.5-5.1) mmol/L Chloride (98-107) mmol/L Carbon Dioxide (21.0-32.0) mmol/L Anion Gap BUN (7.0-18.0) mg/dL Creatinine (0.55-1.02) mg/dL Est GFR ( Amer) (>=60 mL/min/1.73m^2) Est GFR (Non-Af Amer) (>=60 mL/min/1.73m^2) BUN/Creatinine Ratio Glucose (74-106) mg/dL Lactate (0.4-2.0) mmol/L Calcium (8.5-10.1) mg/dL Total Bilirubin (0.2-1.0) mg/dL AST (15-37) U/L ALT (14-59) U/L Alkaline Phosphatase (46-116) U/L Troponin I High Sens 79.7 H* (4.0-51.3) pg/mL NT-Pro-B Natriuret Pep (<=1800.0) pg/mL Total Protein (6.4-8.2) g/dL Albumin (3.4-5.0) g/dL Globulin g/dL Albumin/Globulin Ratio Urine Color (YELLOW) Urine Clarity (CLEAR) Urine pH (5.0-9.0) Ur Specific [place] (1.005-1.025) Urine Protein (NEG/TRACE) mg/dL Urine Glucose (UA) (NEGATIVE) mg/dL Urine Ketones (NEGATIVE) mg/dL Urine Occult Blood (NEGATIVE) Urine Nitrite (NEGATIVE) Urine Bilirubin (NEGATIVE) Urine Urobilinogen (0.2-1.0) EU/dL Ur Leukocyte Esterase (NEGATIVE) Urine RBC (0-2) #/HPF Urine WBC (NONE SEEN) #/HPF Ur Squamous Epith Cells (NONE/RARE) #/LPF Urine Crystals (None Seen) #/HPF Urine Bacteria (NONE SEEN) #/HPF Urine Casts (NONE SEEN) #/LPF Urine Mucus (NONE SEEN) Ur Culture Indicated? POC Glucose 146 H (74-106) mg/dL ECG Data Attestation: I personally reviewed and interpreted this ECG as follows: (Sinus rhythm with sinus arrhythmia at 70 bpm, normal axis, no acute ST segment elevation or T wave inversion) Discharge Plan Discharge Chief Complaint: Shortness of Breath/Dyspnea Clinical Impression: Ventricular tachycardia, Post-operative pain, Constipation, CHF (congestive heart failure) Patient Disposition: [facility] Time of Disposition Decision: 01:56 Discharge Location: The [facility] Condition: Serious
[2024-02-01 20:51] LABS: INR 1.05; Prothrombin Time 11.1 sec (9.0-11.6)
[2024-02-01 20:56] LABS: Alanine Aminotransferase 14 U/L (14-59); Albumin Globulin Ratio 0.8; Albumin Level 2.6 g/dL (3.4-5.0); Alkaline Phosphatase 100 U/L (46-116); Anion Gap 9.2; Aspartate Amino Transferase 14 U/L (15-37); BUN Creatinine Ratio 15.3; Bilirubin Total 0.6 mg/dL (0.2-1.0); Calcium 8.4 mg/dL (8.5-10.1); Carbon Dioxide 31.2 mmol/L (21.0-32.0); Chloride 103 mmol/L (98-107); Estimated GFR (African America 42 (>=60 mL/min/1.73m^2); Estimated GFR (Non-African Ame 35 (>=60 mL/min/1.73m^2); Globulin 3.4 g/dL; Glucose 113 mg/dL (74-106); Potassium 4.4 mmol/L (3.5-5.1); Sodium 139 mmol/L (136-145); Troponin I High Sensitivity 38.3 pg/mL (4.0-51.3)
[2024-02-01 21:24] LABS: ABG PCO2 46.4 mmHg (35.0-45.0); Allen Test POS (POSITIVE); Base Excess ABG 2.5 mmol/L (-2.0-2.0); HCO3 ABG 27.6 mmol/L (22.0-26.0); Oxygen Saturation ABG 90.7 %; pH ABG 7.382 (7.350-7.450)
[2024-02-01 21:25] LABS: Liters per Minute 2; O2 Mode NASAL CANNULA
[2024-02-01 21:26] LABS: PO2 ABG 57.3 mmHg (80.0-100.0); Puncture Site LEFT RADIAL
[2024-02-01] MEDS: FUROSEMIDE 20 MG/2 ML VIAL IVP (22:35)
--- NOTE | 2024-02-01 22:47 | CT_ITS ---
The [address] [address] Patient Name: ZACHARY MAYNARD MRN: [id number] date: 1945 Sex: F Assigned Patient Location: ER Current Patient Location: ER Accession/Order Number: [id number] Exam Date: 02/01/2024 23:12 Report Date: 02/02/2024 00:41 At the request of: RYAN MARKER Procedure: CT angio abdomen pelvis CT ABDOMEN AND PELVIS WITH CONTRAST: INDICATION: post op AAA repair with abd pain. COMPARISON: CT abdomen and pelvis dated 10/19/2019. TECHNIQUE:Multiple thin section transaxial slices were acquired through the abdomen and pelvis with intravenous contrast. 3-D, Coronal and sagittal reconstructed images were reviewed. Oral contrastWas not administered. Images were obtained per CT angiogram protocol. FINDINGS: There is breathing motion artifact contributing to some image degradation of this examination. LOWER CHEST: There is smooth interlobular septal thickening in the lung bases consistent with a degree of interstitial edema. There are small bilateral pleural effusions, right greater than left. There is atelectasis in the adjacent lungs. There is a small hiatal hernia. LIVER: The liver is unremarkable. GALLBLADDER AND BILIARY SYSTEM: No obvious ductal dilation. There is cholelithiasis. SPLEEN: The spleen is unremarkable. PANCREAS: The pancreas is unremarkable. ADRENAL GLANDS: The adrenal glands are unremarkable. KIDNEYS AND URETERS: There is motion artifact which is contributing to image degradation of the kidneys. There is pelvocaliectasis of both kidneys with mild dilation of the proximal mid ureters. There are no obstructing urologic calcifications. There is also diminished enhancement along the inferior left kidney. There is significant motion of this portion of the kidney, and this could be artifact. However, the possibility of renal infarct cannot be excluded. VASCULATURE: An endograft is present within the abdominal aorta with extension into the common iliac arteries bilaterally. There is some air present within the wall of the thrombosed aorta from recent vascular intervention. There is no evidence of a leak within the limits of this examination. 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 PERITONEUM/RETROPERITONEUM: There is a trace amount of free fluid in the pelvis. LYMPH NODES: No suspicious lymphadenopathy. GASTROINTESTINAL TRACT: The bowel is normal in caliber.There is chronic colonic diverticulosis of the colon without acute inflammation.The appendix is not well delineated and may be absent or diminutive. BLADDER: There is a tiny focus of air in the anterior urinary bladder possibly iatrogenic. REPRODUCTIVE SYSTEM: The uterus is absent. BODY WALL: There is a tiny fat-containing umbilical hernia. BONES: There is mild endplate degenerative disc disease throughout the thoracolumbar spine. CT/CT angio abdomen pelvis IMPRESSION: 1. 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 No evidence of leak. 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 2. There is motion artifact degrading image quality, especially with the kidneys. There is hypodensity in the cortex of the lower left kidney which could be artifactual. The possibility of renal infarct cannot entirely be excluded. 3. Pelvic caliectasis of the kidneys and mild dilation of the mid and proximal ureters without obstructing urologic calcifications. This is nonspecific. Correlate with urinalysis for signs of underlying infectious process. 4. Mild interstitial edema in the lower chest with small bilateral pleural effusions. Electronically authenticated by: KIMBERLY WALTON Date: 02/02/2024 00:41
[2024-02-02] VITALS (13 sets, daily range): BP systolic 131–159; BP diastolic 47–94; PULSE 60–106; O2SAT 89–96
[2024-02-02 00:02] LABS: Bilirubin Urine NEGATIVE (NEGATIVE); Blood Urine NEGATIVE (NEGATIVE); Clarity Urine CLEAR (CLEAR); Color Urine LT. YELLOW (YELLOW); Glucose Urine UA NEGATIVE (NEGATIVE); Ketones Urine NEGATIVE (NEGATIVE); Leukocyte Esterase Urine NEGATIVE (NEGATIVE); Nitrite Urine NEGATIVE (NEGATIVE); Protein Urine 30 mg/dL (NEG/TRACE); Specific Gravity Urine 1.015 (1.005-1.025); Urobilinogen Urine 0.2 EU/dL (0.2-1.0)
[2024-02-02 00:37] LABS: Bacteria Urine TRACE #/HPF (NONE SEEN); Cast Seen? NONE SEEN #/LPF (NONE SEEN); Crystals Seen? None Seen #/HPF (None Seen); Mucus Urine NONE SEEN (NONE SEEN); RBC Urine 0-2 #/HPF (0-2); Squamous Epithelial Cell Urine RARE #/LPF (NONE/RARE); Urine Culture Indicated NO; WBC Urine 0-2 #/HPF (NONE SEEN)
[2024-02-02] MEDS: ONDANSETRON PF 4 MG/2 ML VIAL IV (01:36)
[2024-02-02] MEDS: MORPHINE SULFATE 4 MG/ML VIAL IV ×2 (01:36→04:00)
[2024-02-02] MEDS: MAGNESIUM SULFATE IN WATER 2 GM/50 ML PREMIX IV (01:41)
[2024-02-02 02:14] LABS: Basophils Percent Auto 0.3 % (0.2-2.0); Eosinophils Absolute Auto 0.2 10^3/uL (0.0-0.7); Eosinophils Percent Auto 2.5 % (0.9-7.0); Hematocrit 28.7 % (36.0-48.0); Immature Granulocytes Abs Auto 0.07 10^3/uL (0.00-0.03); Immature Granulocytes Pct Auto 0.7 % (0.0-0.5); Lymphocytes Percent Auto 10.4 % (20.5-60.0); Mean Corpuscular HGB Conc 31.4 g/dL (29.9-35.2); Mean Corpuscular Hemoglobin 28.7 pg (26.7-34.0); Mean Corpuscular Volume 91.4 fL (81.0-99.0); Mean Platelet Volume 11.4 fL (9.5-13.5); Monocytes Absolute Auto 0.5 10^3/uL (0.3-0.8); Monocytes Percent Auto 4.8 % (1.7-12.0); Neutrophils Absolute Auto 7.8 10^3/uL (1.4-6.5); Neutrophils Percent Auto 81.3 % (43.0-75.0); Platelet Count 164 10^3/uL (150-450); Red Blood Count 3.14 10^6/uL (4.20-5.40); Red Cell Distribution Width 16.5 % (11.0-15.0); White Blood Count 9.6 10^3/uL (4.0-11.0)
[2024-02-02] MEDS: DEXTROSE 5 % IN WATER 1,000 ML 75 ML IV (02:15)
[2024-02-02] MEDS: METOPROLOL TARTRATE 5 MG/5 ML VIAL IVP (02:15)
[2024-02-02 02:24] LABS: Glucometer 146 mg/dL (74-106)
[2024-02-02 02:39] LABS: Troponin I High Sensitivity 79.7 pg/mL (4.0-51.3)
== END 2024-02-02 04:37 | disposition short-term general hospital (02) ==
PROVIDERS: Emergency Provider Emergency Medicine; PCP Family Medicine
DX: I47.20 Ventricular tachycardia, unspecified (principal); I13.0 Hypertensive heart and chronic kidney disease with heart failure and stage 1 through stage 4 chronic kidney disease, or unspecified chronic kidney disease; I48.0 Paroxysmal atrial fibrillation; I50.9 Heart failure, unspecified; Z98.890 Other specified postprocedural states; Z79.01 Long term (current) use of anticoagulants; Z90.710 Acquired absence of both cervix and uterus; Z87.891 Personal history of nicotine dependence; R09.02 Hypoxemia; N18.9 Chronic kidney disease, unspecified; G89.18 Other acute postprocedural pain; F03.90 Unspecified dementia, unspecified severity, without behavioral disturbance, psychotic disturbance, mood disturbance, and anxiety; K59.00 Constipation, unspecified; R06.02 Shortness of breath
CPT/HCPCS: 36415; 36600; 70450; 74022; 74174; 80053; 81001; 82805; 83605; 83880; 84484; 85025; 85378; 85610; 93005; 96361; 96365; 96375; 96376; 99285; J1940; J2270; J2405; J3475; Q9967

== ENCOUNTER 2024-02-16 15:12 | Outpatient (OUT) | payer MEDICARE, SELFPAY ==
[2024-02-16 15:52] LABS: Basophils Absolute Auto 0.1 10^3/uL (0.0-0.1); Basophils Percent Auto 0.9 % (0.2-2.0); Eosinophils Absolute Auto 0.3 10^3/uL (0.0-0.7); Eosinophils Percent Auto 4.4 % (0.9-7.0); Hematocrit 27.3 % (36.0-48.0); Hemoglobin 8.4 g/dL (12.0-16.0); Immature Granulocytes Abs Auto 0.08 10^3/uL (0.00-0.03); Immature Granulocytes Pct Auto 1.2 % (0.0-0.5); Lymphocytes Absolute Auto 1.1 10^3/uL (1.2-3.8); Lymphocytes Percent Auto 16.8 % (20.5-60.0); Mean Corpuscular HGB Conc 30.8 g/dL (29.9-35.2); Mean Corpuscular Hemoglobin 28.1 pg (26.7-34.0); Mean Corpuscular Volume 91.3 fL (81.0-99.0); Mean Platelet Volume 11.3 fL (9.5-13.5); Monocytes Absolute Auto 0.8 10^3/uL (0.3-0.8); Monocytes Percent Auto 11.4 % (1.7-12.0); Neutrophils Absolute Auto 4.3 10^3/uL (1.4-6.5); Neutrophils Percent Auto 65.3 % (43.0-75.0); Platelet Count 293 10^3/uL (150-450); Red Blood Count 2.99 10^6/uL (4.20-5.40); Red Cell Distribution Width 16.6 % (11.0-15.0); White Blood Count 6.6 10^3/uL (4.0-11.0)
[2024-02-16 16:01] LABS: Anion Gap 12.9; BUN Creatinine Ratio 11.2; Calcium 9.2 mg/dL (8.5-10.1); Chloride 105 mmol/L (98-107); Estimated GFR (African America 33 (>=60 mL/min/1.73m^2); Estimated GFR (Non-African Ame 27 (>=60 mL/min/1.73m^2); Glucose 117 mg/dL (74-106); Potassium 4.9 mmol/L (3.5-5.1); Sodium 142 mmol/L (136-145)
== END 2024-02-16 15:13 | disposition home or self-care (01) ==
LOC: LAB 15:13
PROVIDERS: PCP Family Medicine; Visit Provider Internal Medicine Interventional Cardiology
DX: I50.41 Acute combined systolic (congestive) and diastolic (congestive) heart failure (principal)
CPT/HCPCS: 36415; 80048; 85025

== ENCOUNTER 2024-02-25 18:52 | Emergency (ER) | payer MEDICARE, SELFPAY ==
[2024-02-25] VITALS (14 sets, daily range): BP systolic 136–159; BP diastolic 57–62; PULSE 55–82; TEMP 36.6; O2SAT 96–99; BMI 28.0
--- OUTSIDE RECORDS SUMMARY | 2024-02-25 19:00 | XMS_ITS | CCD ---
Author Organization [facility] Care Team Providers Care Live In Housekeeper Name Role Phone ADINA BUNCH Unavailable Unavailable DALTON, RACHAEL K Unavailable Unavailable ALTON, MICHELLE Unavailable Unavailable ALTON, MICHELLE Unavailable Unavailable Adina Bunch Primary Care Provider [phone] JUDIE, DUGLAS S Admitting Unavailable JUDIE, DUGLAS S Attending Unavailable ADINA BUNCH Primary Care Unavailable JAMISON GALO Consulting Unavailable JUDIE, DUGLAS S Consulting Unavailable ABEL RICHARD Consulting Unavailable CHIRRI, JIMMY Consulting Unavailable KENDRICK, VENITA Consulting Unavailable DEMETER, FLORY H Consulting Unavailable SANTACROCE, MIREILLE Consulting Unavailable MINALY ., DR HOLDEN Admitting Unavailable HOY ., [...] Unavailable MD Adina Bunch Primary Care Provider [phone] MD Anju Lees Attending Provider Anju Lees Admitting Unavailable Anju Lees Attending Unavailable Adina Bunch Primary Care Unavailable Adina Bunch Primary Care Unavailable Freddy, Anju R Admitting Unavailable Anju Lees R Attending Unavailable Adina Bunch Primary Care Unavailable Freddy, Anju R Admitting Unavailable Anju Lees R Attending Unavailable Adina Bunch MD Primary Care Provider [phone] CURRY RED Attending Unavailable LEXY TA Attending Unavailable DENISHA KELLY Attending Unavailable CAMERON YOUNG Attending Unavailable MARCK DICKSON Referring Unavailable NELL, NAZARIOI Referring Unavailable ELTAHAWY, ROSIE Attending Unavailable RATNAM, JAZ Referring Unavailable HERNANDEZ, BONIFACIO Referring Unavailable GEMA, PEARL Referring Unavailable HORANI, SCARLETT Admitting Unavailable HORANI, SCARLETT Attending Unavailable TRISTANDIPTI Attending Unavailable NELL, HANI Referring Unavailable HORANI, SCARLETT Referring Unavailable NAZZAL, FORREST Referring Unavailable ODILIA, MARIANNE Referring Unavailable GEMA, PEARL Referring Unavailable HORANI, SCARLETT Referring Unavailable MARLEE, ULISSES Referring Unavailable ALI, AVILA Referring Unavailable BEACHUM, ROSA Referring Unavailable RATNAM, JAZ Referring Unavailable HORANI, SCARLETT Referring Unavailable HERNANDEZ, BONIFACIO Referring Unavailable DIAB, DANIKA Referring Unavailable HORANI, SCARLETT Admitting Unavailable NELL, NAZARIOI Attending Unavailable MARKER, TIFFANY Lux Referring Unavailable HORANI, SCARLETT Admitting Unavailable HORANI, SCARLETT Attending Unavailable GEMA, PEARL Referring Unavailable MARTHA, SIRISHA Referring Unavailable HERNANDEZ, BONIFACIO Referring Unavailable PERNE, YOVANY Attending Unavailable TURNERRYNE SANTANA Referring Unavailable PRINCE, AP Referring Unavailable PRINCE, AP Referring Unavailable BEACHUM, ROSA Referring Unavailable Allergies Allergy Classification Reported Allergen(s) Allergy Type Date of Onset Reaction(s) Facility (7 sources) Adhesive Tape; 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: [Adhesive tape] Propensity to adverse reactions to drug 4 Unknown Reaction, Rash [place] (7 sources) Ciprofloxacin Drug Allergy 8 [place] (1 source) Hmg-Coa Reductase Inhibitors (Statins) Propensity to adverse reactions to drug 8 [place] (8 sources) Meperidine; 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: [MEPERIDINE] Drug Allergy 8 [place]aphylaxis [place] (8 sources) moxifloxacin; 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: [MOXIFLOXACIN] Drug Allergy 8 Anaphylaxis, [place] (7 sources) Nalbuphine Drug Allergy 8 [place] (7 sources) Promethazine Drug Allergy 8 [place] (1 [place] Sulfonamides (Antibiotic) Propensity to adverse reactions to drug 8 [place] (2 sources) black walnut pollen extract Drug Allergy 4 [facility] (2 sources) Ciprofloxacin Drug Allergy 4 [facility] (2 sources) Levamisole Drug Allergy 4 [facility] (2 sources) Meperidine Drug Allergy 4 [facility] (2 sources) moxifloxacin Drug Allergy 4 [facility] (2 sources) Nalbuphine Drug Allergy 4 [facility] (1 source) Sulfonamides (Antibiotic) Drug allergy (disorder) 7 [facility] (4 sources) Sulfacetamide; 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: [sulfacetamide] Drug Allergy 4 Unknown Reaction, Itching [facility] (4 sources) Sulfur; 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: [sulfur] Drug Allergy 4 Unknown Reaction [facility] (4 sources) Hzcxpze-GHF-PeO Reductase Inhibitor; 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: [Dwenrhm-ITT-LyM Reductase Inhibitor] Allergy to substance 4 Unknown Reaction [facility] (1 source) Ciprofloxacin Drug Allergy 4 [facility] (1 source) Meperidine Drug Allergy 4 [facility] (1 source) moxifloxacin Drug Allergy 4 [facility] (1 source) Nalbuphine Drug Allergy 4 [facility] (1 source) Promethazine Drug Allergy 4 [facility] (3 sources) atorvastatin Drug Allergy 3 Unknown [facility] Work Phone: (3 sources) cefdinir Drug Allergy 3 Unknown [facility] (3 sources) HMG-CoA reductase inhibitor Drug Allergy 8 Unknown [facility] (3 sources) Meperidine Drug Allergy 3 Unknown [facility] (3 sources) Promethazine Drug Allergy 3 [facility] (3 sources) Sulfonamides (Antibiotic) Drug Allergy 8 Unknown [facility] (3 sources) Wound Dressing Adhesive Drug Allergy 3 Unknown [facility] Medications Current Medications Medication Drug Class(es) Dates [...] Central Nervous System Stimulant, Methylxanthine Start: 10-10-2019 efywlsifej-jbmdfxlouokul-ltm feine (FIORICET, ESGIC) per tablet 1 tablet [id number] 200 actuat albuterol 0.09 mg/actuat metered dose [...] AWAKE, First dose on 10/09/19 at 1600 amiodarone hydrochloride 200 mg oral tablet (2 sources) Antiarrhythmic Start: 01-09-2024 take 2 tablets by mouth twice daily, then take 1 tablet by mouth in the morning amiodarone (Pacerone) 200 MG tablet TAKE 2 TABLETS BY MOUTH TWO TIMES DAILY FOR 14 DAYS, THEN TAKE 1 TABLET IN THE MORNING. 01/09/2024 Active amitriptyline hydrochloride 10 mg oral tablet (3 sources) Tricyclic Antidepressant amitriptyline (Elavil) 10 MG tablet Take by mouth at bedtime. Active amLODIPine 10 mg oral tablet (5 sources) Dihydropyridine Calcium Channel Doide Start: 06-29-2017 End: 10-10-2019 take 1 tablet by mouth once daily amLODIPine (NORVASC) 10 MG tablet Take 1 tablet by mouth daily 30 tablet 3 10/15/2019 Active apixaban 5 mg oral tablet (2 sources) Factor Xa Inhibitor take 1 tablet by mouth every twelve hours Eliquis 5 MG tablet 5 mg every 12 (twelve) hours Active aspirin 81 mg chewable tablet (2 sources) Platelet Aggregation Inhibitor, Nonsteroidal Anti-inflammatory Drug Start: 10-09-2019 take 1 tablet by mouth once daily aspirin 81 MG chewable tablet Take 1 tablet by mouth daily 30 tablet 3 10/16/2019 Active augmented betamethasone 0.5 mg/ml topical cream (3 sources) Corticosteroid betamethasone, augmented, (Diprolene AF) 0.05 % cream Indications: Atopic Dermatitis Apply 1 application topically in the morning and 1 application before bedtime. Active bisacodyl 10 mg rectal suppository (1 [...] docusate sodiu m (COLACE) capsule 200 mg 2 ml dupilumab 150 mg/ml auto-injector (3 sources) Interleukin-4 Receptor alpha Antagonist Start: 01-14-2023 End: 01-16-2024 Dupixent 300 MG/2ML injection Indications: Other atopic dermatitis Inject 2 mL (300 mg) under the skin every 14 (fourteen) days. 4 mL 01/14/2023 01/16/2024 Discontinued (Side effects) empagliflozin 10 mg oral tablet (4 sources) Sodium-Glucose Cotransporter 2 Inhibitor Start: 04-17-2023 take [...] at 1245 ezetimibe 10 mg oral tablet (8 sources) Dietary Cholesterol Absorption Inhibitor Start: 10-09-2019 take 1 tablet by mouth once daily at bedtime Ezetimibe (Zetia) 10 mg tablet Active 10 MG PO Daily at bedtime April 08, 2023 12:00am fexofenadine hydrochloride 180 mg oral tablet (2 sources) Histamine-1 Receptor Antagonist Start: 01-16-2024 take 1 tablet by mouth once daily fexofenadine (Brenda) 180 MG tablet Indications: Other atopic dermatitis Take 1 tablet daily, by mouth, 30 days 30 tablet 01/16/2024 Active Start: 01-16-2024 take 1 tablet by horace once daily fexofenadine (Brenda) 180 MG tablet Indications: Other atopic dermatitis Take 1 tablet daily, by mouth, 30 days 30 tablet 01/16/2024 Active furosemide 20 mg oral tablet (6 sources) Loop Diuretic Start: 04-08-2023 take 20 mg by mouth once daily Furosemide Active 20 MG PO Daily April 08, 2023 12:00am furosemide (Lasi x) 8 MG/ML solution Take by mouth Daily. Active glucagon (rdna) 1 mg injection (1 source) Antihypoglycemic Agent Start: 10-09-2019 glucago n (rDNA) injection 1 mg 150 ml glucose 50 mg/ml injection (3 sources) Start: 10-09-2019 dextrose 5 % s olution Start: 10-09-2019 glucose (GLUTO SE) 40 % [...] 10 mg hydroCHLOROthiazide 25 mg oral tablet (6 sources) Thiazide Diuretic Start: 04-08-2023 take 25 mg by mouth once daily in the morning Hydrochlorothiazide Active 25 MG PO Every morning April 08, 2023 12:00am take 2 tablets by mo uth in the morning hydroCHLOROthiazide (HYDRODiuril) 12.5 M G tablet Take 25 mg by mouth in the morning. Active hydrOXYzine hydrochloride 25 mg oral tablet (4 sources) Antihistamine Start: 01-16-2024 take 1 tablet by mouth every 30 days as needed hydrOXYzine HCl (Atarax) 25 MG tablet Indications: Other atopic dermatitis Take 1 tablet, by mouth, as needed for itching at bedtime, 30 day supply. 30 tablet 01/16/2024 Active Start: 01-16-2024 take 1 tablet by horace th every 30 days as needed hydrOXYzine HCl (Atarax) 25 MG tablet Indications: Other atopic dermatitis Take 1 tablet, by mouth, as needed for itching at bedtime, 30 day supply. 30 tablet 01/16/2024 Active Start: 11-13-2023 take 1 tablet by horace th four times daily as needed hydrOXYzine HCl (Atarax) 25 MG tablet TAKE 1 TABLET BY MOUTH 4 TIMES A DAY NEEDED FOR 10 DAYS 11/13/2023 Active insulin lispro 100 unt/ml injectable solution (2 sources) Insulin Analog Start: 10-09-2019 insulin lispro (HUMALOG) injection vial 0-3 Units 24 hr isosorbide mononitrate 30 mg extended release oral tablet (2 sources) Nitrate Vasodilator take 1 tablet by mouth in the morning, then take 1 tablet by mouth every twenty-four hours isosorbide mononitrate ER (Imdur) 30 MG 24 hr tablet Take 30 mg by mouth in the morning. Active 1 ml ketorolac tromethamine 15 mg/ml cartridge [...] tablet 3 10/16/2019 Active Start: 10-11-2019 lisinopril (ME INIVIL;ZESTRIL) tablet 40 mg Start: 10-10-2019 End: 10-10-2019 lisinopril (PRINIVIL;ZESTRIL ) tablet 20 mg meclizine hydrochloride 25 mg oral tablet (10 sources) Antiemetic Start: 04-08-2023 take 25 mg by mouth once daily Meclizine Active 25 MG PO Daily April 08, 2023 12:00am Start: 10-15-2019 End: 10-25-2019 meclizine (ANTIVERT) tablet 12.5 mg Start: 10-09-2019 End: 10-09-2019 meclizine (ANTIVERT) tablet 25 mg take 1 tablet by horace th three times daily as needed for dizziness meclizine (Antivert) 25 MG tablet Take 25 mg by mouth 3 (three) times a day as needed for dizziness. Active 24 hr memantine hydrochloride 28 mg extended release oral capsule (6 sources) Z-mfcawv-S-aspartate Receptor Antagonist Start: 04-08-2023 take 28 mg by mouth once daily in the morning Memantine Active 28 MG PO Every morning April 08, 2023 12:00am Start: 04-08-2023 Memantine Acti ve MG PO April 08, 2023 12:00am memantine (Namen da Titration Pack) 28 x 5 MG & 21 x 10 MG tablet pack Take by mouth See administration instructions. Follow package directions. Active 24 hr metFORMIN hydrochloride 500 mg extended release oral tablet (6 sources) Biguanide Start: 04-08-2023 take 500 mg by mouth twice daily Metformin Active 500 MG PO Twice daily April 08, 2023 12:00am Start: 04-08-2023 Metformin Acti ve MG PO April 08, 2023 12:00am take 1 tablet by horace th at mealtime, then take 1 tablet by mouth every twenty-four hours metFORMIN, OSM, (Fortamet) 500 MG 24 hr tablet Take 500 mg by mouth in the evening. Take with meals. Do not crush, chew, or split. Active metoprolol tartrate 100 mg oral tablet (4 [...] 2 times daily 0 10/15/2019 Discontinued (REORDER) nitroglycerin 0.4 mg sublingual tablet (2 sources) Nitrate Vasodilator nitroglyceri n (Nitrostat) 0.[address] 0.4 mg under the tongue Active Nutritional Supplements (Ensure Active High Protein) liquid (2 sources) Nutritional Supplements (Ensure Active High Protein) liquid Take by mouth Daily Active ondansetron (ZOFRAN-ODT) disintegrating tablet 4 mg (1 source) Start: 10-09-19 ondansetron (ZOFRAN-ODT) disintegrating tablet 4 mg polyethylene glycol [id number] mg powder for oral solution (3 sources) Osmotic Laxative Start: 10-09-19 End: 11-15-19 take 17 g by mouth once daily polyethylene glycol (GLYCOLAX) 17 g packet Take 17 g by mouth daily 527 g 5 10/16/2019 11/15/2019 Active Potassium (3 sources) Potassium (POTAS DARVIN PO) Take by mouth. Active Potassium Chloride (2 sources) Start: 10-09-19 20 potassium chloride (KLOR-CON M) extended release tablet 40 mEq [...] patients with CrCl less than 30 mL/min. pramipexole dihydrochloride 0.125 mg oral tablet (3 sources) Nonergot Dopamine Agonist take 1 tablet by mouth in the morning, then take 1 tablet by mouth in the evening, then take 1 tablet by mouth at bedtime pramipexole (Mirapex) 0.125 MG tablet Take 0.125 mg by mouth in the morning and 0.125 mg in the evening and 0.125 mg before bedtime. Active rOPINIRole 0.5 mg oral tablet (2 sources) Nonergot Dopamine Agonist take 1 tablet by mouth at bedtime rOPINIRole (Requip) 0.5 MG tablet TAKE 1 TABLET BY MOUTH 1 TO 3 HOURS BEFORE BEDTIME Active 3 ml sodium chloride 9 mg/ml injection (4 sources) Start: 0 sodium chloride flush 0.9 % injection 10 [...] 10-10-2019 spironolactone (ALDACTONE) t ablet 50 mg tiotropium 0.018 mg inhalation powder (2 sources) Anticholinergic take 1 capsule by inhalation once daily Spiriva HandiHaler 18 MCG inhalation capsule inhale 1 capsule by inhalation route every day Inhalation Active triamcinolone acetonide 1 mg/ml topical cream (2 sources) Corticosteroid Start: 01-16-20 triamcinolone (Kenalog) 0.1 % cream Indications: Other atopic dermatitis Apply to affected areas, up to twice a day when flared, do not use one the face, groin, or underarms, 30 day supply 454 g 01/16/2024 Active Start: 01-16-2024 triamcinolone (Kenalog) 0.1 % cream Indications: Other atopic dermatitis Apply to affected areas, up to twice a day when flared, do not use one the face, groin, or underarms, 30 day supply 454 g 01/16/2024 Active Vit C,R-Tl-Tglnp-Lutein-Zeax an (Preservision Areds-2) 250-90-40-1 mg capsule (1 source) Start: 04-17-2023 Vit C,H-Mx-Hzuio-Lutein-Zeax an (Preservision Areds-2) 250-90-40-1 mg capsule Active [...] Classification Problem Date Documented Da te Episodic/Chronic Allergic reactions (2 sources) Atopic dermatitis; 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: [Other atopic dermatitis] 01-16-2024 Chronic Aortic; peripheral; and visceral artery aneurysms (3 sources) Abdominal aortic aneurysm without rupture; 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: [Aneurysm of infrarenal abdominal aorta ] Onset: 10-09-2019 10-09-2019 Chronic Cardiac dysrhythmias (2 sources) Paroxysmal atrial fibrillation; 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: [Paroxysmal atrial fibrillation] Onset: 12-02-2023 Chronic Conditions associated with dizziness or vertigo (6 sources) Dizziness and giddiness; 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: [Vertigo] Onset: 06-27-2017 Episodic Congestive heart failure; nonhypertensive (4 sources) Acute combined systolic (congestive) and diastolic (congestive) heart failure; 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: [Acute on chronic diastolic (congestive) heart failure] Onset: 02-02-2024 Chronic Coronary atherosclerosis and other heart disease (2 [...] Episodic Hypertension with complications and secondary hypertension (8 sources) Hypertensive urgency ; 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: [Secondary hypertension] Onset: 06-28-2017 10-13-2019 Chronic Malaise and fatigue (2 sources) Weakness; 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: [Weakness] Onset: 01-27-2024 Episodic Nausea and vomiting (1 source) Nausea and [...] in unspecified limb] Onset: 04-24-2023 Episodic Other gastrointestinal disorders (2 sources) Constipation, unspecified; 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: [Constipation, unspecified] Onset: 01-27-2024 Episodic Other nervous system disorders (3 sources) Other acute postprocedural pain; 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: [Other acute postprocedural pain] Onset: 04-24-2023 Episodic Peripheral and visceral atherosclerosis (2 sources) Chronic vascular disorders of intestine; 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: [Chronic vascular disorders of intestine] Onset: 02-02-2024 Chronic Peripheral and visceral atherosclerosis (2 sources) Stenosis [...] 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: [Pain in right hand] Onset: 04-08-2023 Unclassified (1 source) Ventricular tachycardia, unspecified; 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: [Ventricular tachycardia, unspecified] Onset: 02-02-2024 Unclassified (1 source) Abdominal aortic aneurysm, without rupture, unspecified; 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: [Abdominal aortic aneurysm, without rupture, unspecified] Onset: 01-27-2024 Unclassified (1 source) Infrarenal abdominal aortic aneurysm, without rupture; 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: [Infrarenal abdominal aortic aneurysm, without rupture] Onset: 12-05-2023 Past or Other Problems Problem Classification Problem Date Documented Da te Episodic/Chronic Cardiac dysrhythmias (2 sources) Palpitations; 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: [Palpitations] Onset: 06-27-2017 06-28-2017 Episodic Unclassified (1 source) COUGH, UNSPECIFIED; 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: [COUGH, UNSPECIFIED] Onset: 02-06-2022 Unclassified (1 source) Ventricular tachycardia, unspecified; 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: [Ventricular tachycardia, unspecified] Onset: 02-02-2024 Unclassified (1 source) Abdominal aortic aneurysm, without rupture, unspecified; 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: [Abdominal aortic aneurysm, without rupture, unspecified] Onset: 01-27-2024 Unclassified (1 source) Infrarenal abdominal aortic aneurysm, without rupture; 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: [Infrarenal abdominal aortic aneurysm, without rupture] Onset: 01-27-2024 Results Test Name Value Interpretation Reference Range Facility Orders Onlyon 02-19-2024 Orders Only [id number] Sunday Maynard 1945 F Date Provider Department Center 02/19/2024 JF MOT[facility] C[facility] No family history on file Normal [facility] Documentationon 02-16-2024 Documentation Normal [facility] 30on 02-12-2024 30 Normal [facility] 30 Normal [facility] BASIC METABOLIC PANELon 01-24 Anion gap [Moles/Vol] 9 mmol/L Normal 7-20 [facility] Comment on above: Performed By: #### L [id number] ####[facility] ([facility])[address] [place] [address] Calcium [Mass/Vol] 8.3 mg/dL Low 8.6-10.3 [facility] Comment on above: Performed By: #### L [id number] ####[facility] ([facility])[address] [place] [address] Chloride [Moles/Vol] 107 mmol/L Normal 98-107 [facility] Comment on above: Performed By: #### L [id number] ####[facility] [place] [address] CO2 [Moles/Vol] 29 mmol/L Normal 21-31 [facility] Comment on above: Performed By: #### L [id number] ####[facility] [place] [address] Creatinine [Mass/Vol] 1.70 mg/dL High 0.60-1.[address] [facility] Comment on above: Performed By: #### L [id number] ####[facility] ([facility])[address] [place] [address] GLOMERULAR FILTRATION RATE ML/MIN/1.73 SQ M.PREDICTED 30.1 mL/min/1.73m*2 Low >60.0 [facility] Comment on above: Result Comment: [facility]???s estimated glomerular filtration rate (eGFR) will no [...] of individuals. Performed By: #### L [id number] ####[facility] ([facility])[address] [place] [address] Glucose [Mass/Vol] 85 mg/dL Normal 70-100 [facility] Comment on above: Performed By: #### L [id number] ####[facility] [place] [address] Potassium [Moles/Vol] 4.6 mmol/L Normal 3.5-5.[address] [facility] Comment on above: Performed By: #### L [id number] ####[facility] [place] [address] Sodium [Moles/Vol] 140 mmol/L Normal 136-145 [facility] Comment on above: Performed By: #### L [id number] ####[facility] [place] [address] Urea nitrogen [Mass/Vol] 21 mg/dL Normal 7-25 [facility] Comment on above: Performed By: #### L [id number] ####[facility] ([facility])[address] [place] [address] UREA NITROGEN/CREATININE (MASS RATIO) IN SER/PLAS 12.4 Normal [facility] Comment on above: Performed By: #### L [id number] ####[facility] ([facility])[address] [place] [address] CBC WITH AUTO DIFFERENTIALon 02-12-2024 Erythrocyte distribution width (RBC) [Ratio] 16.7 % High 11.5-15.0 [facility] Comment on above: Performed By: #### L [id number] ####[facility] ([facility])[address] [place] [address] ERYTHROCYTE MEAN CORPUSCULAR HEMOGLOBIN CONCENTRATION (G/DL) BY AUTOMATED 30.1 g/dL Low 32.0-35.0 [facility] Comment on above: Performed By: #### L [id number] ####[facility] ([facility])[address] [place] [address] Hematocrit (Bld) [Volume fraction] 27.9 % Low 36.0-48.0 [facility] Comment on above: Performed By: #### L [id number] ####[facility] [place] [address] Hemoglobin (Bld) [Mass/Vol] 8.4 g/dL Low 12.0-15.0 [facility] Comment on above: Performed By: #### L [id number] ####[facility] [place] [address] MCH (RBC) [Entitic mass] 27.5 pg Normal 27.0-33.0 [facility] Comment on above: Performed By: #### L [id number] ####[facility] [place] [address] MCV (RBC) [Entitic vol] 91.5 fL Normal 82.0-98.0 [facility] Comment on above: Performed By: #### L [id number] ####[facility] ([facility])[address] [place] [address] NRBC (PER 100 WBCS) BY AUTOMATED COUNT 0.0 % Normal 0 [facility] Comment on above: Performed By: #### L [id number] ####[facility] ([facility])[address] [place] [address] PLATELETS (10*3/UL) IN BLOOD AUTOMATED COUNT 303 10*3/uL Normal 150-400 [facility] Comment on above: Performed By: #### L [id number] ####[facility] ([facility])[address] [place] [address] RBC (Bld) [#/Vol] 3.05 10*6/uL Low 3.80-5.00 [facility] Comment on above: Performed By: #### L [id number] ####[facility] ([facility])[address] [place] [address] WBC (Bld) [#/Vol] 5.28 10*3/uL Normal 4.00-10.60 [facility] Comment on above: Performed By: #### L [id number] ####[facility] ([facility])[address] [place] [address] DSon 02-12-2024 DS Normal [facility] MAGNESIUMon 02-12-2024 Magnesium [Mass/Vol] 1.9 mg/dL Normal 1.9-2.7 [facility] Comment on above: Performed By: #### L [id number] ####[facility] [place] [address] MANUAL DIFFERENTIALon 2023 BASOPHILS (10*3/UL) IN BLOOD BY CALCULATION 0.00 10*3/uL Normal 0.00-0.20 [facility] Comment on above: Performed By: #### L [id number] ####[facility] ([facility])[address] [place] [address] BASOPHILS/100 LEUKOCYTES IN BLOOD BY AUTOMATED COUNT 0.0 % Normal 0.0-1.0 [facility] Comment on above: Performed By: #### L [id number] ####[facility] ([facility])[address] [place] [address] EOSINOPHILS (10*3/UL) IN BLOOD BY CALCULATION 0.21 10*3/uL Normal 0.00-0.50 [facility] Comment on above: Performed By: #### L [id number] ####[facility] ([facility])[address] [place] [address] EOSINOPHILS/100 LEUKOCYTES IN BLOOD BY AUTOMATED COUNT 4.0 % Normal 0.0-6.0 [facility] Comment on above: Performed By: #### L [id number] ####[facility] ([facility])[address] [place] [address] LYMPHOCYTES (10*3/UL) IN BLOOD BY CALCULATION 0.81 10*3/uL Low 1.20-4.00 [facility] Comment on above: Performed By: #### L [id number] ####[facility] ([facility])[address] [place] [address] LYMPHOCYTES/100 LEUKOCYTES IN BLOOD BY AUTOMATED COUNT 15.4 % Low 20.0-45.0 [facility] Comment on above: Performed By: #### L [id number] ####[facility] ([facility])[address] [place] [address] METAMYELOCYTES (10*3/UL) IN BLOOD BY CALCULATION 0.04 10*3/uL High 0.00 [facility] Comment on above: Performed By: #### L [id number] ####[facility] [place] [address] METAMYELOCYTES/100 LEUKOCYTES IN BLOOD CELLAVISION 0.7 % High 0.0-0.0 [facility] Comment on above: Performed By: #### L [id number] ####[facility] ([facility])[address] [place] [address] MONOCYTES (10*3/UL) IN BLOOD BY CALCUATION 0.25 10*3/uL Normal 0.10-1.00 [facility] Comment on above: Performed By: #### L [id number] ####[facility] ([facility])[address] [place] [address] MONOCYTES/100 LEUKOCYTES IN BLOOD BY AUTOMATED COUNT 4.7 % Low 5.0-12.0 [facility] Comment on above: Performed By: #### L [id number] ####[facility] ([facility])[address] [place] [address] MYELOCYTES (10*3/UL) IN BLOOD BY CALCULATION 0.04 10*3/uL High 0.00 [facility] Comment on above: Performed By: #### L [id number] ####[facility] ([facility])[address] [place] [address] MYELOCYTES/100 LEUKOCYTES IN BLOOD CELLAVISION 0.7 % High 0.0-0.0 [facility] Comment on above: Performed By: #### L [id number] ####[facility] ([facility])[address] [place] [address] NEUTROPHILS (10*3/UL) IN BLOOD BY CALCULATION 3.9 10*3/uL Normal 1.6-7.6 [facility] Comment on above: Performed By: #### L [id number] ####[facility] ([facility])[address] [place] [address] NEUTROPHILS/100 LEUKOCYTES IN BLOOD BY AUTOMATED COUNT 74.5 % High 40.0-72.0 [facility] Comment on above: Performed By: #### L [id number] ####[facility] ([facility])[address] [place] [address] PLASMA CELLS/100 LEUKOCYTES IN BLOOD 0 % Normal 0 [facility] Comment on above: Performed By: #### L [id number] ####[facility] ([facility])[address] [place] [address] PLATELETS GIANT PRESENCE IN BLOOD BY LIGHT MICROSCOPY Present Normal [facility] Comment on above: Performed By: #### L [id number] ####[facility] ([facility])[address] [place] [address] SMUDGE CELLS/100 LEUKOCYTES IN BLOOD CELLAVISION Present Normal [facility] Comment on above: Performed By: #### L [id number] ####[facility] ([facility])[address] [place] [address] VARIANT LYMPHOCYTES (10*3/UL) IN BLOOD BY CALCULATION 0.00 10*3/uL Normal 0.00 [facility] Comment on above: Performed By: #### L [id number] ####[facility] ([facility])[address] [place] [address] VARIANT LYMPHOCYTES/100 LEUKOCYTES IN BLOOD CELLAVISION 0.0 % Normal 0.0-0.0 [facility] Comment on above: Performed By: #### L [id number] ####[facility] ([facility])[address] [place] [address] NURSNOTEon 02-12-2024 NURSNOTE [facility] POCT GLUCOSE METER UNSOLICIT ED RESULTSon 02-12-2024 Glucose [Mass/Vol] 103 mg/dL Normal 70-105 [facility] Comment on above: Order Comment: Waive d Testing in the ED is performed under the ED CLIA certificate #[id number]. Result Comment: [email or web address] Performed By: #### L [id number] ####[facility] ([facility])[address] [place] [address] 30on 02-11-2024 30 Normal [facility] 30 [facility] 30 The patient is Moderately Stable - Low risk of patient condition declining or worsening The patient's goals for the shift include Comfort The clinical goals for the shift include VSS, safety Normal [facility] 30 Normal [facility] BASIC METABOLIC PANELon 01-24 Anion gap [Moles/Vol] 14 mmol/L Normal 7-[address] [facility] Comment on above: Performed By: #### L [id number] ####[facility] ([facility])[address] [place] [address] Calcium [Mass/Vol] 8.0 mg/dL Low 8.6-10.3 [facility] Comment on above: Performed By: #### L [id number] ####[facility] ([facility])[address] [place] [address] Chloride [Moles/Vol] 105 mmol/L Normal 98-107 [facility] Comment on above: Performed By: #### L [id number] ####[facility] ([facility])[address] [place] [address] CO2 [Moles/Vol] 26 mmol/L Normal 21-31 [facility] Comment on above: Performed By: #### L [id number] ####[facility] ([facility])[address] [place] [address] Creatinine [Mass/Vol] 1.99 mg/dL High 0.60-1.[address] [facility] Comment on above: Performed By: #### L [id number] ####[facility] ([facility])[address] [place] [address] GLOMERULAR FILTRATION RATE ML/MIN/1.73 SQ M.PREDICTED 24.9 mL/min/1.73m*2 Low >60.0 [facility] Comment on above: Result Comment: The [facility]???s estimated glomerular filtration rate (eGFR) will no [...] of individuals. Performed By: #### L [id number] ####[facility] [place] [address] Glucose [Mass/Vol] 80 mg/dL Normal 70-100 [facility] Comment on above: Performed By: #### L [id number] ####[facility] ([facility] [place] [address] Potassium [Moles/Vol] 4.5 mmol/L Normal 3.5-5.1 [facility] Comment on above: Performed By: #### L [id number] ####[facility] ([facility])[address] [place] [address] Sodium [Moles/Vol] 140 mmol/L Normal 136-145 [facility] Comment on above: Performed By: #### L [id number] ####[facility] ([facility])[address] [place] [address] Urea nitrogen [Mass/Vol] 28 mg/dL High 7-25 [facility] Comment on above: Performed By: #### L [id number] ####[facility] ([facility])[address] [place] [address] UREA NITROGEN/CREATININE (MASS RATIO) IN SER/PLAS 14.1 Normal [facility] Comment on above: Performed By: #### L [id number] ####[facility] ([facility])[address] [place] [address] CBC WITH AUTO DIFFERENTIALon 02-11-2024 Erythrocyte distribution width (RBC) [Ratio] 17.1 % High 11.5-15.0 [facility] Comment on above: Performed By: #### L [id number] ####[facility] ([facility])[address] [place] [address] ERYTHROCYTE MEAN CORPUSCULAR HEMOGLOBIN CONCENTRATION (G/DL) BY AUTOMATED 28.6 g/dL Low 32.0-35.0 [facility] Comment on above: Performed By: #### L [id number] ####[facility] ([facility] [place] [address] Hematocrit (Bld) [Volume fraction] 29.0 % Low 36.0-48.0 [facility] Comment on above: Performed By: #### L [id number] ####[facility] ([facility])[address] [place] [address] Hemoglobin (Bld) [Mass/Vol] 8.3 g/dL Low 12.0-15.0 [facility] Comment on above: Performed By: #### L [id number] ####[facility] ([facility])[address] [place] [address] IMMATURE PLATELET FRACTION % 1.5 % Normal 0.8-6.3 [facility] Comment on above: Performed By: #### L [id number] ####[facility] ([facility])[address] [place] [address] MCH (RBC) [Entitic mass] 27.8 pg Normal 27.0-33.0 [facility] Comment on above: Performed By: #### L [id number] ####[facility] ([facility])[address] [place] [address] MCV (RBC) [Entitic vol] 97.0 fL Normal 82.0-98.0 [facility] Comment on above: Performed By: #### L [id number] ####[facility] ([facility])[address] [place] [address] NRBC (PER 100 WBCS) BY AUTOMATED COUNT 0.0 % Normal 0 [facility] Comment on above: Performed By: #### L [id number] ####[facility] ([facility])[address] [place] [address] PLATELETS (10*3/UL) IN BLOOD AUTOMATED COUNT 323 10*3/uL Normal 150-400 [facility] Comment on above: Performed By: #### L [id number] ####[facility] ([facility])[address] [place] [address] RBC (Bld) [#/Vol] 2.99 10*6/uL Low 3.80-5.00 [facility] Comment on above: Performed By: #### L [id number] ####[facility] ([facility] [place] [address] WBC (Bld) [#/Vol] 7.00 10*3/uL Normal 4.00-10.60 [facility] Comment on above: Performed By: #### L [id number] ####[facility] ([facility])[address] [place] [address] MAGNESIUMon 02-11-2024 Magnesium [Mass/Vol] 2.2 mg/dL Normal 1.9-2.7 [facility] Comment on above: Performed By: #### L [id number] ####[facility] ([facility])[address] [place] [address] MANUAL DIFFERENTIALon 2023 ANISOCYTOSIS PRESENCE IN BLOOD BY LIGHT MICROSCOPY Slight Normal [facility] Comment on above: Performed By: #### L [id number] ####[facility] ([facility])[address] [place] [address] BASOPHILS (10*3/UL) IN BLOOD BY CALCULATION 0.07 10*3/uL Normal 0.00-0.20 [facility] Comment on above: Performed By: #### L [id number] ####[facility] ([facility])[address] [place] [address] BASOPHILS/100 LEUKOCYTES IN BLOOD BY AUTOMATED COUNT 1.0 % Normal 0.0-1.0 [facility] Comment on above: Performed By: #### L [id number] ####[facility] ([facility])[address] [place] [address] EOSINOPHILS (10*3/UL) IN BLOOD BY CALCULATION 0.27 10*3/uL Normal 0.00-0.50 [facility] Comment on above: Performed By: #### L [id number] ####[facility] ([facility] [place] [address] EOSINOPHILS/100 LEUKOCYTES IN BLOOD BY AUTOMATED COUNT 3.9 % Normal 0.0-6.0 [facility] Comment on above: Performed By: #### L [id number] ####[facility] ([facility])[address] [place] [address] IMMATURE GRANULOCYTES (10*3/UL) IN BLOOD BY CALCULATION 0.34 10*3/uL High 0.00-0.20 [facility] Comment on above: Performed By: #### L [id number] ####[facility] ([facility])[address] [place] [address] IMMATURE GRANULOCYTES/100 LEUKOCYTES IN BLOOD BY AUTOMATED COUNT 4.9 % High 0.0-1.0 [facility] Comment on above: Performed By: #### L [id number] ####[facility] ([facility])[address] [place] [address] LYMPHOCYTES (10*3/UL) IN BLOOD BY CALCULATION 1.00 10*3/uL Low 1.20-4.00 [facility] Comment on above: Performed By: #### L [id number] ####[facility] ([facility])[address] [place] [address] LYMPHOCYTES/100 LEUKOCYTES IN BLOOD BY AUTOMATED COUNT 14.3 % Low 20.0-45.0 [facility] Comment on above: Performed By: #### L [id number] ####[facility] ([facility])[address] [place] [address] MICROCYTES (PRESENCE) IN BLOOD BY LIGHT MICROSCOPY Slight Normal [facility] Comment on above: Performed By: #### L [id number] ####[facility] ([facility])[address] [place] [address] MONOCYTES (10*3/UL) IN BLOOD BY CALCUATION 0.68 10*3/uL Normal 0.10-1.00 [facility] Comment on above: Performed By: #### L [id number] ####[facility] ([facility])[address] [place] [address] MONOCYTES/100 LEUKOCYTES IN BLOOD BY AUTOMATED COUNT 9.7 % Normal 5.0-12.0 [facility] Comment on above: Performed By: #### L [id number] ####[facility] ([facility])[address] [place] [address] NEUTROPHILS (10*3/UL) IN BLOOD BY CALCULATION 4.6 10*3/uL Normal 1.6-7.6 [facility] Comment on above: Performed By: #### L [id number] ####[facility] ([facility])[address] [place] [address] NEUTROPHILS/100 LEUKOCYTES IN BLOOD BY AUTOMATED COUNT 66.2 % Normal 40.0-72.0 [facility] Comment on above: Performed By: #### L [id number] ####[facility] ([facility])[address] [place] [address] POIKILOCYTOSIS (PRESENCE) IN BLOOD BY LIGHT MICROSCOPY Slight Normal [facility] Comment on above: Performed By: #### L [id number] ####[facility] ([facility])[address] [place] [address] POCT GLUCOSE METER UNSOLICIT ED RESULTSon 02-11-2024 Glucose [Mass/Vol] 140 mg/dL High 70-105 [facility] Comment on above: Order Comment: Waive d Testing in the ED is performed under the ED CLIA certificate #[id number]. Result Comment: [email or web address] Performed By: #### L [id number] ####[facility] ([facility])[address] [place] [address] Glucose [Mass/Vol] 158 mg/dL High 70-105 [facility] Comment on above: Order Comment: Waive d Testing in the ED is performed under the ED CLIA certificate #[id number]. Result Comment: [email or web address] Performed By: #### L [id number] ####[facility] ([facility])[address] [place] [address] Glucose [Mass/Vol] 164 mg/dL High 70-105 [facility] Comment on above: Order Comment: Waive d Testing in the ED is performed under the ED CLIA certificate #[id number]. Result Comment: [email or web address] Performed By: #### L [id number] ####[facility] ([facility])[address] [place] [address] Glucose [Mass/Vol] 96 mg/dL Normal 70-105 [facility] Comment on above: Order Comment: Waive d Testing in the ED is performed under the ED CLIA certificate #[id number]. Result Comment: [email or web address] Performed By: #### L [id number] ####[facility] ([facility])[address] [place] [address] 30on 02-10-2024 30 Normal [facility] 30 The patient is Moderately Stable - Low risk of patient condition declining or worsening The patient's goals for the shift include Comfort The clinical goals for the shift include VSS, safety Normal [facility] 30 Normal [facility] BASIC METABOLIC PANELon 01-24 Anion gap [Moles/Vol] 10 mmol/L Normal 7-[address] [facility] Comment on above: Performed By: #### L [id number] ####[facility] ([facility])[address] [place] [address] Calcium [Mass/Vol] 8.0 mg/dL Low 8.6-10.3 [facility] Comment on above: Performed By: #### L [id number] ####[facility] ([facility])[address] [place] [address] Chloride [Moles/Vol] 106 mmol/L Normal 98-107 [facility] Comment on above: Performed By: #### L [id number] ####[facility] ([facility])[address] [place] [address] CO2 [Moles/Vol] 29 mmol/L Normal 21-31 [facility] Comment on above: Performed By: #### L [id number] ####[facility] ([facility])[address] [place] [address] Creatinine [Mass/Vol] 2.41 mg/dL High 0.60-1.[address] [facility] Comment on above: Performed By: #### L [id number] ####[facility] ([facility])[address] [place] [address] GLOMERULAR FILTRATION RATE ML/MIN/1.73 SQ M.PREDICTED 19.8 mL/min/1.73m*2 Low >60.0 [facility] Comment on above: Result Comment: The [facility]???s estimated glomerular filtration rate (eGFR) will no [...] of individuals. Performed By: #### L [id number] ####[facility] ([facility])[address] [place] [address] Glucose [Mass/Vol] 81 mg/dL Normal 70-100 [facility] Comment on above: Performed By: #### L [id number] ####[facility] ([facility])[address] [place] [address] Potassium [Moles/Vol] 4.1 mmol/L Normal 3.5-5.[address] [facility] Comment on above: Performed By: #### L [id number] ####[facility] ([facility])[address] [place] [address] Sodium [Moles/Vol] 141 mmol/L Normal 136-145 [facility] Comment on above: Performed By: #### L [id number] ####[facility] ([facility])[address] [place] [address] Urea nitrogen [Mass/Vol] 36 mg/dL High 7-25 [facility] Comment on above: Performed By: #### L [id number] ####[facility] ([facility])[address] [place] [address] UREA NITROGEN/CREATININE (MASS RATIO) IN SER/PLAS 14.9 Normal [facility] Comment on above: Performed By: #### L [id number] ####[facility] ([facility])[address] [place] [address] CBC WITH AUTO DIFFERENTIALon 02-10-2024 Basophils (Bld) [#/Vol] 0.05 10*3/uL Normal 0.00-0.20 [facility] Comment on above: Performed By: #### L [id number] ####[facility] [place] [address] Basophils/100 WBC (Bld) 0.7 % Normal 0.0-1.0 [facility] Comment on above: Performed By: #### L [id number] ####[facility] [place] [address] Eosinophils (Bld) [#/Vol] 0.29 10*3/uL Normal 0.00-0.50 [facility] Comment on above: Performed By: #### L [id number] ####[facility] ([facility])[address] [place] [address] Eosinophils/100 WBC (Bld) 4.2 % Normal 0.0-6.0 [facility] Comment on above: Performed By: #### L [id number] ####[facility] ([facility])[address] [place] [address] Erythrocyte distribution width (RBC) [Ratio] 16.9 % High 11.5-15.0 [facility] Comment on above: Performed By: #### L [id number] ####[facility] ([facility] [place] [address] ERYTHROCYTE MEAN CORPUSCULAR HEMOGLOBIN CONCENTRATION (G/DL) BY AUTOMATED 30.1 g/dL Low 32.0-35.0 [facility] Comment on above: Performed By: #### L [id number] ####[facility] ([facility] [place] [address] Hematocrit (Bld) [Volume fraction] 28.6 % Low 36.0-48.0 [facility] Comment on above: Performed By: #### L [id number] ####[facility] ([facility])[address] [place] [address] Hemoglobin (Bld) [Mass/Vol] 8.6 g/dL Low 12.0-15.0 [facility] Comment on above: Performed By: #### L [id number] ####[facility] ([facility])[address] [place] [address] Immature granulocytes (Bld) [#/Vol] 0.32 10*3/uL High 0.00-0.20 [facility] Comment on above: Performed By: #### L [id number] ####[facility] ([facility])[address] [place] [address] Immature granulocytes/100 WBC (Bld) 4.6 % High 0.0-1.0 [facility] Comment on above: Performed By: #### L [id number] ####[facility] ([facility])[address] [place] [address] Lymphocytes (Bld) [#/Vol] 1.03 10*3/uL Low 1.20-4.00 [facility] Comment on above: Performed By: #### L [id number] ####[facility] ([facility])[address] [place] [address] Lymphocytes/100 WBC (Bld) 14.9 % Low 20.0-45.0 [facility] Comment on above: Performed By: #### L [id number] ####[facility] ([facility])[address] [place] [address] MCH (RBC) [Entitic mass] 27.8 pg Normal 27.0-33.0 [facility] Comment on above: Performed By: #### L [id number] ####[facility] ([facility])[address] [place] [address] MCV (RBC) [Entitic vol] 92.6 fL Normal 82.0-98.0 [facility] Comment on above: Performed By: #### L [id number] ####[facility] ([facility])[address] [place] [address] Monocytes (Bld) [#/Vol] 0.59 10*3/uL Normal 0.10-1.00 [facility] Comment on above: Performed By: #### L [id number] ####[facility] [place] [address] Monocytes/100 WBC (Bld) 8.5 % Normal 5.0-12.0 [facility] Comment on above: Performed By: #### L [id number] ####[facility] ([facility])[address] [place] [address] Neutrophils (Bld) [#/Vol] 4.63 10*3/uL Normal 1.60-7.60 [facility] Comment on above: Performed By: #### L [id number] ####[facility] [place] [address] Neutrophils/100 WBC (Bld) 67.1 % Normal 40.0-72.0 [facility] Comment on above: Performed By: #### L [id number] ####[facility] ([facility])[address] [place] [address] NRBC (PER 100 WBCS) BY AUTOMATED COUNT 0.0 % Normal 0 [facility] Comment on above: Performed By: #### L [id number] ####[facility] [place] [address] PLATELETS (10*3/UL) IN BLOOD AUTOMATED COUNT 299 10*3/uL Normal 150-400 [facility] Comment on above: Performed By: #### L [id number] ####[facility] [place] [address] RBC (Bld) [#/Vol] 3.09 10*6/uL Low 3.80-5.00 [facility] above: Performed By: #### L [id number] ####[facility] ([facility])[address] [place] [address] WBC (Bld) [#/Vol] 6.91 10*3/uL Normal 4.00-10.60 [facility] Comment on above: Performed By: #### L [id number] ####[facility] ([facility])[address] [place] [address] MAGNESIUMon 02-10-2024 Magnesium [Mass/Vol] 2.7 mg/dL Normal 1.9-2.7 [facility] Comment on above: Performed By: #### L [id number] ####[facility] ([facility])[address] [place] [address] POCT GLUCOSE METER UNSOLICIT ED RESULTSon 02-10-2024 Glucose [Mass/Vol] 110 mg/dL High 70-105 [facility] Comment on above: Order Comment: Waive d Testing in the ED is performed under the ED CLIA certificate #[id number]. Result Comment: faith som3 Performed By: #### L [id number] ####[facility] ([facility])[address] [place] [address] Glucose [Mass/Vol] 181 mg/dL High 70-105 [facility] Comment on above: Order Comment: Waive d Testing in the ED is performed under the ED CLIA certificate #[id number]. Result Comment: [email or web address] Performed By: #### L [id number] ####[facility] ([employer])[address] [place] [address] Glucose [Mass/Vol] 136 mg/dL High 70-105 [facility] Comment on above: Order Comment: Waive d Testing in the ED is performed under the ED CLIA certificate #[id number]. Result Comment: [email or web address] Performed By: #### L [id number] ####[facility] ([facility])[address] [place] [address] Glucose [Mass/Vol] 92 mg/dL Normal 70-105 [facility] Comment on above: Order Comment: Waive d Testing in the ED is performed under the ED CLIA certificate #[id number]. Result Comment: [email or web address] Performed By: #### L [id number] ####[facility] ([facility])[address] [place] [address] Glucose [Mass/Vol] 99 mg/dL Normal 70-105 [facility] Comment on above: Order Comment: Waive d Testing in the ED is performed under the ED CLIA certificate #[id number]. Result Comment: [email or web address] Performed By: #### L [id number] ####[facility] ([facility])[address] [place] [address] 30on 02-09-2024 30 Normal [facility] 30 Normal [facility] 30 [facility] BASIC METABOLIC PANELon 01-24 Anion gap [Moles/Vol] 10 mmol/L Normal 7-[address] [facility] Comment on above: Performed By: #### L [id number] ####[facility] ([facility])[address] [place] [address] Calcium [Mass/Vol] 8.1 mg/dL Low 8.6-10.3 [facility] Comment on above: Performed By: #### L [id number] ####[facility] ([facility])[address] [place] [address] Chloride [Moles/Vol] 104 mmol/L Normal 98-107 [facility] Comment on above: Performed By: #### L [id number] ####[facility] ([facility])[address] [place] [address] CO2 [Moles/Vol] 30 mmol/L Normal 21-31 [facility] Comment on above: Performed By: #### L [id number] ####[facility] ([facility])[address] [place] [address] Creatinine [Mass/Vol] 3.10 mg/dL High 0.60-1.[address] [facility] Comment on above: Performed By: #### L [id number] ####[facility] ([facility])[address] [place] [address] GLOMERULAR FILTRATION RATE ML/MIN/1.73 SQ M.PREDICTED 14.7 mL/min/1.73m*2 Low >60.0 [facility] Comment on above: Result Comment: The [facility]???s estimated glomerular filtration rate (eGFR) will no [...] of individuals. Performed By: #### L [id number] ####[facility] ([facility])[address] [place] [address] Glucose [Mass/Vol] 89 mg/dL Normal 70-100 [facility] Comment on above: Performed By: #### L [id number] ####[facility] ([facility])[address] [place] [address] Potassium [Moles/Vol] 4.2 mmol/L Normal 3.5-5.[address] [facility] Comment on above: Performed By: #### L [id number] ####[facility] ([facility])[address] [place] [address] Sodium [Moles/Vol] 140 mmol/L Normal 136-145 [facility] Comment on above: Performed By: #### L [id number] ####[facility] ([facility])[address] [place] [address] Urea nitrogen [Mass/Vol] 45 mg/dL High 7-25 [facility] Comment on above: Performed By: #### L [id number] ####[facility] ([facility])[address] [place] [address] UREA NITROGEN/CREATININE (MASS RATIO) IN SER/PLAS 14.5 Normal [facility] Comment on above: Performed By: #### L [id number] ####[facility] ([facility])[address] [place] [address] CBC WITH AUTO DIFFERENTIALon 02-09-2024 Basophils (Bld) [#/Vol] 0.05 10*3/uL Normal 0.00-0.20 [facility] Comment on above: Performed By: #### L [id number] ####[facility] ([facility])[address] [place] [address] Basophils/100 WBC (Bld) 0.7 % Normal 0.0-1.0 [facility] Comment on above: Performed By: #### L [id number] ####[facility] ([facility])[address] [place] [address] Eosinophils (Bld) [#/Vol] 0.24 10*3/uL Normal 0.00-0.50 [facility] Comment on above: Performed By: #### L [id number] ####[facility] ([facility])[address] [place] [address] Eosinophils/100 WBC (Bld) 3.1 % Normal 0.0-6.0 [facility] Comment on above: Performed By: #### L [id number] ####[facility] ([facility])[address] [place] [address] Erythrocyte distribution width (RBC) [Ratio] 17.1 % High 11.5-15.0 [facility] Comment on above: Performed By: #### L [id number] ####[facility] ([facility])[address] [place] [address] ERYTHROCYTE MEAN CORPUSCULAR HEMOGLOBIN CONCENTRATION (G/DL) BY AUTOMATED 29.4 g/dL Low 32.0-35.0 [facility] Comment on above: Performed By: #### L [id number] ####[facility] ([facility])[address] [place] [address] Hematocrit (Bld) [Volume fraction] 27.2 % Low 36.0-48.0 [facility] Comment on above: Performed By: #### L [id number] ####[facility] ([facility])[address] [place] [address] Hemoglobin (Bld) [Mass/Vol] 8.0 g/dL Low 12.0-15.0 [facility] Comment on above: Performed By: #### L [id number] ####[facility] ([facility])[address] [place] [address] Immature granulocytes (Bld) [#/Vol] 0.28 10*3/uL High 0.00-0.20 [facility] Comment on above: Performed By: #### L [id number] ####[facility] ([facility])[address] [place] [address] Immature granulocytes/100 WBC (Bld) 3.7 % High 0.0-1.0 [facility] Comment on above: Performed By: #### L [id number] ####[facility] ([facility])[address] [place] [address] Lymphocytes (Bld) [#/Vol] 0.92 10*3/uL Low 1.20-4.00 [facility] Comment on above: Performed By: #### L [id number] ####[facility] ([facility])[address] [place] [address] Lymphocytes/100 WBC (Bld) 12.0 % Low 20.0-45.0 [facility] Comment on above: Performed By: #### L [id number] ####[facility] ([facility]ER)[address] [place] [address] MCH (RBC) [Entitic mass] 27.4 pg Normal 27.0-33.0 [facility] Comment on above: Performed By: #### L [id number] ####[facility] ([facility]ER)[address] [place] [address] MCV (RBC) [Entitic vol] 93.2 fL Normal 82.0-98.0 [facility] Comment on above: Performed By: #### L [id number] ####[facility] ([facility])[address] [place] [address] Monocytes (Bld) [#/Vol] 0.65 10*3/uL Normal 0.10-1.00 [facility] Comment on above: Performed By: #### L [id number] ####[facility] ([facility])[address] [place] [address] Monocytes/100 WBC (Bld) 8.5 % Normal 5.0-12.0 [facility] Comment on above: Performed By: #### L [id number] ####[facility] ([facility])[address] [place] [address] Neutrophils (Bld) [#/Vol] 5.79 10*3/uL Normal 1.60-7.60 [facility] Comment on above: Performed By: #### L [id number] ####[facility] ([facility])[address] [place] [address] Neutrophils/100 WBC (Bld) 75.7 % High 40.0-72.0 [facility] Comment on above: Performed By: #### L [id number] ####[facility] ([facility])[address] [place] [address] NRBC (PER 100 WBCS) BY AUTOMATED COUNT 0.0 % Normal 0 [facility] Comment on above: Performed By: #### L [id number] ####[facility] ([facility])[address] [place] [address] PLATELETS (10*3/UL) IN BLOOD AUTOMATED COUNT 295 10*3/uL Normal 150-400 [facility] Comment on above: Performed By: #### L [id number] ####[facility] ([facility])[address] [place] [address] RBC (Bld) [#/Vol] 2.92 10*6/uL Low 3.80-5.00 [facility] Comment on above: Performed By: #### L [id number] ####[facility] ([facility])[address] [place] [address] WBC (Bld) [#/Vol] 7.65 10*3/uL Normal 4.00-10.60 [facility] Comment on above: Performed By: #### L [id number] ####[facility] ([employer])[address] [place] [address] CONSULTon 02-09-2024 CONSULT Normal [facility] MAGNESIUMon 02-09-2024 Magnesium [Mass/Vol] 3.2 mg/dL High 1.9-2.7 [facility] Comment on above: Performed By: #### L [id number] ####[facility] ([facility])[address] [place] [address] POCT GLUCOSE METER UNSOLICIT ED RESULTSon 02-09-2024 Glucose [Mass/Vol] 173 mg/dL High 70-105 [facility] Comment on above: Order Comment: Waive d Testing in the ED is performed under the ED CLIA certificate #[id number]. Result Comment: [email or web address] Performed By: #### L [id number] ####[facility] ([employer])[address] [place] [address] Glucose [Mass/Vol] 201 mg/dL High 70-105 [facility] Comment on above: Order Comment: Waive d Testing in the ED is performed under the ED CLIA certificate #[id number]. Result Comment: [email or web address] od Performed By: #### L [id number] ####[facility] ([employer])[address] [place] [address] Glucose [Mass/Vol] 118 mg/dL High 70-105 [facility] Comment on above: Order Comment: Waive d Testing in the ED is performed under the ED CLIA certificate #[id number]. Result Comment: faith [email or web address] Performed By: #### L [id number] ####[facility] ([employer])[address] [place] [address] Glucose [Mass/Vol] 129 mg/dL High 70-105 [facility] Comment on above: Order Comment: Waive d Testing in the ED is performed under the ED CLIA certificate #[id number]. Result Comment: [email or web address] [email or web address] Performed By: #### L [id number] ####[facility] [place] [address] 30on 02-08-2024 30 Normal [facility] 30 Normal [facility] BASIC METABOLIC PANELon 01-24 Anion gap [Moles/Vol] 10 mmol/L Normal 7-20 [facility] Comment on above: Performed By: #### L [id number] ####[facility] ([facility])[address] [place] [address] Calcium [Mass/Vol] 8.3 mg/dL Low 8.6-10.3 [facility] Comment on above: Performed By: #### L [id number] ####[facility] ([facility])[address] [place] [address] Chloride [Moles/Vol] 101 mmol/L Normal 98-107 [facility] Comment on above: Performed By: #### L [id number] ####[facility] ([facility])[address] [place] [address] CO2 [Moles/Vol] 30 mmol/L Normal 21-31 [facility] Comment on above: Performed By: #### L [id number] ####[facility] ([facility])[address] [place] [address] Creatinine [Mass/Vol] 3.65 mg/dL High 0.60-1.[address] [facility] Comment on above: Performed By: #### L [id number] ####[facility] ([facility])[address] [place] [address] GLOMERULAR FILTRATION RATE ML/MIN/1.73 SQ M.PREDICTED 12.0 mL/min/1.73m*2 Low >60.0 [facility] Comment on above: Result Comment: The [facility]???s estimated glomerular filtration rate (eGFR) will no [...] of individuals. Performed By: #### L [id number] ####[facility] ([facility])[address] [place] [address] Glucose [Mass/Vol] 102 mg/dL High 70-100 [facility] Comment on above: Performed By: #### L [id number] ####[facility] ([facility])[address] [place] [address] Potassium [Moles/Vol] 4.2 mmol/L Normal 3.5-5.1 [facility] Comment on above: Performed By: #### L [id number] ####[facility] ([facility])[address] [place] [address] Sodium [Moles/Vol] 137 mmol/L Normal 136-145 [facility] Comment on above: Performed By: #### L [id number] ####[facility] ([facility])[address] [place] [address] Urea nitrogen [Mass/Vol] 50 mg/dL High 7-25 [facility] Comment on above: Performed By: #### L [id number] ####[facility] ([facility])[address] [place] [address] UREA NITROGEN/CREATININE (MASS RATIO) IN SER/PLAS 13.7 Normal [facility] Comment on above: Performed By: #### L [id number] ####[facility] ([facility])[address] [place] [address] CBC WITH AUTO DIFFERENTIALon 02-08-2024 Basophils (Bld) [#/Vol] 0.03 10*3/uL Normal 0.00-0.20 [facility] Comment on above: Performed By: #### L [id number] ####[facility] ([facility])[address] [place] [address] Basophils/100 WBC (Bld) 0.4 % Normal 0.0-1.0 [facility] Comment on above: Performed By: #### L [id number] ####[facility] ([facility]ER)[address] [place] [address] Eosinophils (Bld) [#/Vol] 0.20 10*3/uL Normal 0.00-0.50 [facility] Comment on above: Performed By: #### L [id number] ####[facility] ([facility])[address] [place] [address] Eosinophils/100 WBC (Bld) 2.9 % Normal 0.0-6.0 [facility] Comment on above: Performed By: #### L [id number] ####[facility] ([facility])[address] [place] [address] Erythrocyte distribution width (RBC) [Ratio] 16.9 % High 11.5-15.0 [facility] Comment on above: Performed By: #### L [id number] ####[facility] ([facility])[address] [place] [address] ERYTHROCYTE MEAN CORPUSCULAR HEMOGLOBIN CONCENTRATION (G/DL) BY AUTOMATED 30.8 g/dL Low 32.0-35.0 [facility] Comment on above: Performed By: #### L [id number] ####[facility] ([facility])[address] [place] [address] Hematocrit (Bld) [Volume fraction] 25.3 % Low 36.0-48.0 [facility] Comment on above: Performed By: #### L [id number] ####[facility] ([facility])[address] [place] [address] Hemoglobin (Bld) [Mass/Vol] 7.8 g/dL Low 12.0-15.0 [facility] Comment on above: Performed By: #### L [id number] ####[facility] ([facility]AKER)[address] [place] [address] Immature granulocytes (Bld) [#/Vol] 0.23 10*3/uL High 0.00-0.20 [facility] Comment on above: Performed By: #### L [id number] ####[facility] ([facility])[address] [place] [address] Immature granulocytes/100 WBC (Bld) 3.3 % High 0.0-1.0 [facility] Comment on above: Performed By: #### L [id number] ####[facility] ([facility]ER)[address] [place] [address] Lymphocytes (Bld) [#/Vol] 0.80 10*3/uL Low 1.20-4.00 [facility] Comment on above: Performed By: #### L [id number] ####[facility] ([facility])[address] [place] [address] Lymphocytes/100 WBC (Bld) 11.5 % Low 20.0-45.0 [facility] Comment on above: Performed By: #### L [id number] ####[facility] ([facility])[address] [place] [address] MCH (RBC) [Entitic mass] 28.3 pg Normal 27.0-33.0 [facility] Comment on above: Performed By: #### L [id number] ####[facility] ([facility]ER)[address] [place] [address] MCV (RBC) [Entitic vol] 91.7 fL Normal 82.0-98.0 [facility] Comment on above: Performed By: #### L [id number] ####[facility] ([facility]ER)[address] [place] [address] Monocytes (Bld) [#/Vol] 0.63 10*3/uL Normal 0.10-1.00 [facility] Comment on above: Performed By: #### L [id number] ####[facility] ([facility]ER)[address] [place] [address] Monocytes/100 WBC (Bld) 9.0 % Normal 5.0-12.0 [facility] Comment on above: Performed By: #### L [id number] ####[facility] ([facility]ER)[address] [place] [address] Neutrophils (Bld) [#/Vol] 5.32 10*3/uL Normal 1.60-7.60 [facility] Comment on above: Performed By: #### L [id number] ####[facility] ([facility]ER)[address] [place] [address] Neutrophils/100 WBC (Bld) 76.2 % High 40.0-72.0 [facility] Comment on above: Performed By: #### L [id number] ####[facility] [place] [address] NRBC (PER 100 WBCS) BY AUTOMATED COUNT 0.0 % Normal 0 [facility] Comment on above: Performed By: #### L [id number] ####[facility] ([facility] [place] [address] PLATELETS (10*3/UL) IN BLOOD AUTOMATED COUNT 272 10*3/uL Normal 150-400 [facility] Comment on above: Performed By: #### L [id number] ####[facility] ([facility])[address] [place] [address] RBC (Bld) [#/Vol] 2.76 10*6/uL Low 3.80-5.00 [facility] Comment on above: Performed By: #### L [id number] ####[facility] ([facility]ER)[address] [place] [address] WBC (Bld) [#/Vol] 6.98 10*3/uL Normal 4.00-10.60 [facility] Comment on above: Performed By: #### L [id number] ####[facility] (BEAKER)[address] [place] [address] MAGNESIUMon 02-08-2024 Magnesium [Mass/Vol] 3.6 mg/dL High 1.9-2.7 [facility] Comment on above: Performed By: #### L [id number] ####[facility] ([facility]ER)[address] [place] [address] NURSNOTEon 02-08-2024 NURSNOTE Normal [facility] POCT GLUCOSE METER UNSOLICIT ED RESULTSon 02-08-2024 Glucose [Mass/Vol] 160 mg/dL High 70-105 [facility] Comment on above: Order Comment: Waive d Testing in the ED is performed under the ED CLIA certificate #[id number]. Result Comment: [email or web address] Performed By: #### L [id number] ####[facility] ([facility] [place] [address] Glucose [Mass/Vol] 128 mg/dL High 70-105 [facility] Comment on above: Order Comment: Waive d Testing in the ED is performed under the ED CLIA certificate #[id number]. Result Comment: [email or web address] Performed By: #### L [id number] ####[facility] ([facility]ER)[address] [place] [address] 30on 02-07-2024 30 Normal [facility] 30 Normal [facility] B-TYPE NATRIURETIC PEPTIDEon 02-07-2024 Natriuretic peptide B (Bld) [Mass/Vol] 1210 pg/mL High 0-100 [facility] Comment on above: Performed By: #### L [id number] ####[facility] ([facility])[address] [place] [address] BASIC METABOLIC PANELon 01-24 Anion gap [Moles/Vol] 13 mmol/L Normal 7-[address] [facility] Comment on above: Performed By: #### L [id number] ####[facility] ([facility]ER)[address] [place] [address] Calcium [Mass/Vol] 8.2 mg/dL Low 8.6-10.3 [facility] Comment on above: Performed By: #### L [id number] ####[facility] ([facility]ER)[address] [place] [address] Chloride [Moles/Vol] 100 mmol/L Normal 98-107 [facility] Comment on above: Performed By: #### L [id number] ####[facility] [place] [address] CO2 [Moles/Vol] 29 mmol/L Normal 21-31 [facility] Comment on above: Performed By: #### L [id number] ####[facility] ([facility] [place] [address] Creatinine [Mass/Vol] 3.57 mg/dL High 0.60-1.[address] [facility] Comment on above: Performed By: #### L [id number] ####[facility] ([facility])[address] [place] [address] GLOMERULAR FILTRATION RATE ML/MIN/1.73 SQ M.PREDICTED 12.4 mL/min/1.73m*2 Low >60.0 [facility] Comment on above: Result Comment: The [facility]???s estimated glomerular filtration rate (eGFR) will no [...] of individuals. Performed By: #### L [id number] ####[facility] [place] [address] Glucose [Mass/Vol] 107 mg/dL High 70-100 [facility] Comment on above: Performed By: #### L [id number] ####[facility] ([facility]ER)[address] [place] [address] Potassium [Moles/Vol] 4.0 mmol/L Normal 3.5-5.[address] [facility] Comment on above: Performed By: #### L [id number] ####[facility] ([facility] [place] [address] Sodium [Moles/Vol] 138 mmol/L Normal 136-145 [facility] Comment on above: Performed By: #### L [id number] ####[facility] ([facility])[address] [place] [address] Urea nitrogen [Mass/Vol] 48 mg/dL High 7-25 [facility] Comment on above: Performed By: #### L [id number] ####[facility] ([facility])[address] [place] [address] UREA NITROGEN/CREATININE (MASS RATIO) IN SER/PLAS 13.4 Normal [facility] Comment on above: Performed By: #### L [id number] ####[facility] ([facility])[address] [place] [address] CBC WITH AUTO DIFFERENTIALon 02-07-2024 Basophils (Bld) [#/Vol] 0.02 10*3/uL Normal 0.00-0.20 [facility] Comment on above: Performed By: #### L [id number] ####[facility] ([facility])[address] [place] [address] Basophils/100 WBC (Bld) 0.3 % Normal 0.0-1.0 [facility] Comment on above: Performed By: #### L [id number] ####[facility] ([facility])[address] [place] [address] Eosinophils (Bld) [#/Vol] 0.01 10*3/uL Normal 0.00-0.50 [facility] Comment on above: Performed By: #### L [id number] ####[facility] ([facility])[address] [place] [address] Eosinophils/100 WBC (Bld) 0.1 % Normal 0.0-6.0 [facility] Comment on above: Performed By: #### L [id number] ####[facility] ([facility])[address] [place] [address] Erythrocyte distribution width (RBC) [Ratio] 16.9 % High 11.5-15.0 [facility] Comment on above: Performed By: #### L [id number] ####[facility] ([facility])[address] [place] [address] ERYTHROCYTE MEAN CORPUSCULAR HEMOGLOBIN CONCENTRATION (G/DL) BY AUTOMATED 30.5 g/dL Low 32.0-35.0 [facility] Comment on above: Performed By: #### L [id number] ####[facility] ([facility]ER)[address] [place] [address] Hematocrit (Bld) [Volume fraction] 24.6 % Low 36.0-48.0 [facility] Comment on above: Performed By: #### L [id number] ####[facility] ([facility])[address] [place] [address] Hemoglobin (Bld) [Mass/Vol] 7.5 g/dL Low 12.0-15.0 [facility] Comment on above: Performed By: #### L [id number] ####[facility] ([facility]ER)[address] [place] [address] Immature granulocytes (Bld) [#/Vol] 0.09 10*3/uL Normal 0.00-0.20 [facility] Comment on above: Performed By: #### L [id number] ####[facility] ([facility]AKER)[address] [place] [address] Immature granulocytes/100 WBC (Bld) 1.2 % High 0.0-1.0 [facility] Comment on above: Performed By: #### L [id number] ####[facility] [facility] (BEAKER)[address] [place] [address] Lymphocytes (Bld) [#/Vol] 0.66 10*3/uL Low 1.20-4.00 [facility] Comment on above: Performed By: #### L [id number] ####[facility] (BEAKER)[address] [place] [address] Lymphocytes/100 WBC (Bld) 8.6 % Low 20.0-45.0 [facility] Comment on above: Performed By: #### L [id number] ####[facility] (BEAKER)[address] [place] [address] MCH (RBC) [Entitic mass] 27.7 pg Normal 27.0-33.0 [facility] Comment on above: Performed By: #### L [id number] ####[facility] [place] [address] MCV (RBC) [Entitic vol] 90.8 fL Normal 82.0-98.0 [facility] Comment on above: Performed By: #### L [id number] ####[facility] ([facility])[address] [place] [address] Monocytes (Bld) [#/Vol] 0.50 10*3/uL Normal 0.10-1.00 [facility] Comment on above: Performed By: #### L [id number] ####[facility] ([facility])[address] [place] [address] Monocytes/100 WBC (Bld) 6.5 % Normal 5.0-12.0 [facility] Comment on above: Performed By: #### L [id number] ####[facility] ([facility])[address] [place] [address] Neutrophils (Bld) [#/Vol] 6.50 10*3/uL Normal 1.60-7.60 [facility] Comment on above: Performed By: #### L [id number] ####[facility] ([facility])[address] [place] [address] Neutrophils/100 WBC (Bld) 84.5 % High 40.0-72.0 [facility] Comment on above: Performed By: #### L [id number] ####[facility] [place] [address] NRBC (PER 100 WBCS) BY AUTOMATED COUNT 0.0 % Normal 0 [facility] Comment on above: Performed By: #### L [id number] ####[facility] (BEAKER)[address] [place] [address] PLATELETS (10*3/UL) IN BLOOD AUTOMATED COUNT 268 10*3/uL Normal 150-400 [facility] Comment on above: Performed By: #### L [id number] ####[facility] ([facility])[address] [place] [address] RBC (Bld) [#/Vol] 2.71 10*6/uL Low 3.80-5.00 [facility] Comment on above: Performed By: #### L [id number] ####[facility] ([facility])[address] [place] [address] WBC (Bld) [#/Vol] 7.69 10*3/uL Normal 4.00-10.60 [facility] Comment on above: Performed By: #### L [id number] ####[facility] ([facility])[address] [place] [address] MAGNESIUMon 02-07-2024 Magnesium [Mass/Vol] 3.7 mg/dL High 1.9-2.7 [facility] Comment on above: Performed By: #### L [id number] ####[facility] ([facility])[address] [place] [address] POCT GLUCOSE METER UNSOLICIT ED RESULTSon 02-07-2024 Glucose [Mass/Vol] 141 mg/dL High 70-105 [facility] Comment on above: Order Comment: Waive d Testing in the ED is performed under the ED CLIA certificate #[id number]. Result Comment: mary [email or web address] Performed By: #### L [id number] ####[facility] ([facility])[address] [place] [address] Glucose [Mass/Vol] 133 mg/dL High 70-105 [facility] Comment on above: Order Comment: Waive d Testing in the ED is performed under the ED CLIA certificate #[id number]. Result Comment: [place] Performed By: #### L [id number] ####[facility] ([facility])[address] [place] [address] Glucose [Mass/Vol] 127 mg/dL High 70-105 [facility] Comment on above: Order Comment: Waive d Testing in the ED is performed under the ED CLIA certificate #[id number]. Result Comment: [place] Performed By: #### L [id number] ####[facility] (BEAKER)[address] [place] [address] 30on 02-06-2024 30 Normal [facility] 30 Normal [facility] BASIC METABOLIC PANELon 01-24 Anion gap [Moles/Vol] 17 mmol/L Normal 7-[address] [facility] Comment on above: Performed By: #### L [id number] ####[facility] ([facility])[address] [place] [address] Calcium [Mass/Vol] 8.2 mg/dL Low 8.6-10.3 [facility] Comment on above: Performed By: #### L [id number] ####[facility] [place] [address] Chloride [Moles/Vol] 100 mmol/L Normal 98-107 [facility] Comment on above: Performed By: #### L [id number] ####[facility] ([facility])[address] [place] [address] CO2 [Moles/Vol] 25 mmol/L Normal 21-31 [facility] Comment on above: Performed By: #### L [id number] ####[facility] [place] [address] Creatinine [Mass/Vol] 3.14 mg/dL High 0.60-1.[address] [facility] Comment on above: Performed By: #### L [id number] ####[facility] ([facility] [place] [address] GLOMERULAR FILTRATION RATE ML/MIN/1.73 SQ M.PREDICTED 14.4 mL/min/1.73m*2 Low >60.0 [facility] Comment on above: Result Comment: The [facility]???s estimated glomerular filtration rate (eGFR) will no [...] of individuals. Performed By: #### L [id number] ####[facility] ([facility])[address] [place] [address] Glucose [Mass/Vol] 97 mg/dL Normal 70-100 [facility] Comment on above: Performed By: #### L [id number] ####[facility] ([facility])[address] [place] [address] Potassium [Moles/Vol] 4.3 mmol/L Normal 3.5-5.1 [facility] Comment on above: Performed By: #### L [id number] ####[facility] ([facility])[address] [place] [address] Sodium [Moles/Vol] 138 mmol/L Normal 136-145 [facility] Comment on above: Performed By: #### L [id number] ####[facility] ([facility])[address] [place] [address] Urea nitrogen [Mass/Vol] 37 mg/dL High 7-25 [facility] Comment on above: Performed By: #### L [id number] ####[facility] ([facility])[address] [place] [address] UREA NITROGEN/CREATININE (MASS RATIO) IN SER/PLAS 11.8 Normal [facility] Comment on above: Performed By: #### L [id number] ####[facility] ([facility])[address] [place] [address] CBC WITH AUTO DIFFERENTIALon 02-06-2024 Basophils (Bld) [#/Vol] 0.01 10*3/uL Normal 0.00-0.20 [facility] Comment on above: Performed By: #### L [id number] ####[facility] (BEAKER)[address] [place] [address] Basophils/100 WBC (Bld) 0.1 % Normal 0.0-1.0 [facility] Comment on above: Performed By: #### L [id number] ####[facility] (BEAKER)[address] [place] [address] Eosinophils (Bld) [#/Vol] 0.00 10*3/uL Normal 0.00-0.50 [facility] Comment on above: Performed By: #### L [id number] ####[facility] (BEAKER)[address] [place] [address] Eosinophils/100 WBC (Bld) 0.0 % Normal 0.0-6.0 [facility] Comment on above: Performed By: #### L [id number] ####[facility] (BEAKER)[address] [place] [address] Erythrocyte distribution width (RBC) [Ratio] 16.2 % High 11.5-15.0 [facility] Comment on above: Performed By: #### L [id number] ####[facility] (BEAKER)[address] [place] [address] ERYTHROCYTE MEAN CORPUSCULAR HEMOGLOBIN CONCENTRATION (G/DL) BY AUTOMATED 30.7 g/dL Low 32.0-35.0 [facility] Comment on above: Performed By: #### L [id number] ####[facility] (BEAKER)[address] [place] [address] Hematocrit (Bld) [Volume fraction] 25.7 % Low 36.0-48.0 [facility] Comment on above: Performed By: #### L [id number] ####[facility] (BEAKER)[address] [place] [address] Hemoglobin (Bld) [Mass/Vol] 7.9 g/dL Low 12.0-15.0 [facility] Comment on above: Performed By: #### L [id number] ####[facility] (BEAKER)[address] [place] [address] Immature granulocytes (Bld) [#/Vol] 0.07 10*3/uL Normal 0.00-0.20 [facility] Comment on above: Performed By: #### L [id number] ####[facility] (BEAKER)[address] [place] [address] Immature granulocytes/100 WBC (Bld) 0.9 % Normal 0.0-1.0 [facility] Comment on above: Performed By: #### L [id number] ####[facility] (BEAKER)[address] [place] [address] Lymphocytes (Bld) [#/Vol] 0.46 10*3/uL Low 1.20-4.00 [facility] Comment on above: Performed By: #### L [id number] ####[facility] (BEAKER)[address] [place] [address] Lymphocytes/100 WBC (Bld) 6.2 % Low 20.0-45.0 [facility] Comment on above: Performed By: #### L [id number] ####[facility] (BEAKER)[address] [place] [address] MCH (RBC) [Entitic mass] 27.9 pg Normal 27.0-33.0 [facility] Comment on above: Performed By: #### L [id number] ####[facility] (BEAKER)[address] [place] [address] MCV (RBC) [Entitic vol] 90.8 fL Normal 82.0-98.0 [facility] Comment on above: Performed By: #### L [id number] ####[facility] (BEAKER)[address] [place] [address] Monocytes (Bld) [#/Vol] 0.19 10*3/uL Normal 0.10-1.00 [facility] Comment on above: Performed By: #### L [id number] ####[facility] (BEAKER)[address] [place] [address] Monocytes/100 WBC (Bld) 2.6 % Low 5.0-12.0 [facility] Comment on above: Performed By: #### L [id number] ####[facility] ([facility] [place] [address] Neutrophils (Bld) [#/Vol] 6.77 10*3/uL Normal 1.60-7.60 [facility] Comment on above: Performed By: #### L [id number] ####[facility] ([facility] [place] [address] Neutrophils/100 WBC (Bld) 91.1 % High 40.0-72.0 [facility] Comment on above: Performed By: #### L [id number] ####[facility] ([facility])[address] [place] [address] NRBC (PER 100 WBCS) BY AUTOMATED COUNT 0.0 % Normal 0 [facility] Comment on above: Performed By: #### L [id number] ####[facility] ([facility])[address] [place] [address] PLATELETS (10*3/UL) IN BLOOD AUTOMATED COUNT 247 10*3/uL Normal 150-400 [facility] Comment on above: Performed By: #### L [id number] ####[facility] ([facility] [place] [address] RBC (Bld) [#/Vol] 2.83 10*6/uL Low 3.80-5.00 [facility] Comment on above: Performed By: #### L [id number] ####[facility] (BEAKER)[address] [place] [address] WBC (Bld) [#/Vol] 7.43 10*3/uL Normal 4.00-10.60 [facility] Comment on above: Performed By: #### L [id number] ####[facility] (BEAKER)[address] [place] [address] CONSULTon 02-06-2024 CONSULT Normal [facility] CREATININE, URINE, RANDOMon 02-06-2024 Creatinine (U) [Mass/Vol] 82.0 mg/dL Normal 26-299 [facility] Comment on above: Performed By: #### L [id number] ####[facility] ([facility])[address] [place] [address] LACTIC ACID, PLASMAon 2023 LACTATE (MMOL/L) IN SER/PLAS 0.4 mmol/L Low 0.5-2.2 [facility] Comment on above: Performed By: #### L [id number] ####[facility] ([facility])[address] [place] [address] MAGNESIUMon 02-06-2024 Magnesium [Mass/Vol] 3.6 mg/dL High 1.9-2.7 [facility] Comment on above: Performed By: #### L [id number] ####[facility] ([facility])[address] [place] [address] NURSNOTEon 02-06-2024 NURSNOTE Normal [facility] NURSNOTE Normal [facility] POCT GLUCOSE METER UNSOLICIT ED RESULTSon 02-06-2024 Glucose [Mass/Vol] 150 mg/dL High 70-105 [facility] Comment on above: Order Comment: Waive d Testing in the ED is performed under the ED CLIA certificate #[id number]. Result Comment: [email or web address] Performed By: #### L [id number] ####[facility] ([facility])[address] [place] [address] Glucose [Mass/Vol] 195 mg/dL High 70-105 [facility] Comment on above: Order Comment: Waive d Testing in the ED is performed under the ED CLIA certificate #[id number]. Result Comment: [place] Performed By: #### L [id number] ####[facility] ([facility])[address] [place] [address] Glucose [Mass/Vol] 123 mg/dL High 70-105 [facility] Comment on above: Order Comment: Waive d Testing in the ED is performed under the ED CLIA certificate #[id number]. Result Comment: [email or web address] Performed By: #### L [id number] ####[facility] ([facility])[address] [place] [address] Glucose [Mass/Vol] 130 mg/dL High 70-105 [facility] Comment on above: Order Comment: Waive d Testing in the ED is performed under the ED CLIA certificate #[id number]. Result Comment: [email or web address] Performed By: #### L [id number] ####[facility] ([facility])[address] [place] [address] Glucose [Mass/Vol] 122 mg/dL High 70-105 [facility] Comment on above: Order Comment: Waive d Testing in the ED is performed under the ED CLIA certificate #[id number]. Result Comment: [email or web address] Performed By: #### L [id number] ####[facility] ([facility])[address] [place] [address] SODIUM, URINE, RANDOMon 01-24 Sodium (U) [Moles/Vol] 45 mmol/L [facility] Comment on above: Performed By: #### L [id number] ####[facility] ([facility])[address] [place] [address] URINALYSIS WITH MICROSCOPICo n 02-06-2024 BILIRUBIN, TOTAL PRESENCE IN URINE Negative Normal Negative [facility] Comment on above: Performed By: #### L [id number] ####[facility] ([facility])[address] [place] [address] Clarity (U) Cloudy Abnormal Clear [facility] Comment on above: Performed By: #### L [id number] ####[facility] ([facility])[address] [place] [address] Color (U) Yellow Normal Colorless, Yellow, Light-Yellow [facility] Comment on above: Performed By: #### L [id number] ####[facility] ([facility])[address] [place] [address] GLUCOSE (MG/DL) IN URINE Normal Normal Normal [facility] Comment on above: Performed By: #### L [id number] ####[facility] ([facility])[address] [place] [address] HEMOGLOBIN PRESENCE IN URINE Moderate Abnormal Negative [facility] Comment on above: Performed By: #### L [id number] ####[facility] ([facility])[address] [place] [address] Ketones Ql (U) Trace Abnormal Negative [facility] Comment on above: Performed By: #### L [id number] ####[facility] ([facility])[address] [place] [address] LEUKOCYTE ESTERASE PRESENCE IN URINE BY TEST STRIP Negative Normal Negative [facility] Comment on above: Performed By: #### L [id number] ####[facility] ([facility])[address] [place] [address] MUCUS (#/LPF) IN URINE SEDIMENT Occasional Normal None Seen, Occasional, Few [facility] Comment on above: Performed By: #### L [id number] ####[facility] ([facility])[address] [place] [address] NITRITE PRESENCE IN URINE Negative Normal Negative [facility] Comment on above: Performed By: #### L [id number] ####[facility] ([facility])[address] [place] [address] pH (U) 5.5 [pH] Normal 5.0-8.0 [facility] Comment on above: Performed By: #### L [id number] ####[facility] ([facility])[address] [place] [address] Protein (U) [Mass/Vol] 30 mg/dL Abnormal Negative [facility] Comment on above: Performed By: #### L [id number] ####[facility] ([facility])[address] [place] [address] RBC (#/HPF) IN URINE SEDIMENT >20 Abnormal None Seen, 0-2 [facility] Comment on above: Performed By: #### L [id number] ####[facility] (BEAKER)[address] [place] [address] Specific gravity (U) [Rel density] >1.050 High 1.010-1.030 [facility] Comment on above: Performed By: #### L [id number] ####[facility] (BEAKER)[address] [place] [address] SQUAMOUS EPITHELIAL CELLS (#/LPF) IN URINE SEDIMENT Occasional Normal None Seen, Occasional, Few [facility] Comment on above: Performed By: #### L [id number] ####[facility] [place] [address] UROBILINOGEN (MG/DL) IN URINE Normal Normal Normal [facility] Comment on above: Performed By: #### L [id number] ####[facility] [place] [address] WBC (LEUKOCYTE) (#/HPF) IN URINE SEDIMENT 6-10 Abnormal None Seen, 0-2 [facility] Comment on above: Performed By: #### L [id number] ####[facility] [place] [address] 30on 02-05-2024 30 Normal [facility] 30 Normal [facility] ANESon 02-05-2024 ANES Normal [facility] BASIC METABOLIC PANELon 01-24 Anion gap [Moles/Vol] 13 mmol/L Normal 7-20 [facility] Comment on above: Performed By: #### L [id number] ####[facility] (BEAKER)[address] [place] [address] Calcium [Mass/Vol] 8.1 mg/dL Low 8.6-10.3 [facility] Comment on above: Performed By: #### L [id number] ####[facility] (BEAKER)[address] [place] [address] Chloride [Moles/Vol] 95 mmol/L Low 98-107 [facility] Comment on above: Performed By: #### L [id number] ####[facility] ([facility])[address] [place] [address] CO2 [Moles/Vol] 32 mmol/L High 21-31 [facility] Comment on above: Performed By: #### L [id number] ####[facility] ([facility])[address] [place] [address] Creatinine [Mass/Vol] 2.79 mg/dL High 0.60-1.[address] [facility] Comment on above: Performed By: #### L [id number] ####[facility] ([facility])[address] [place] [address] GLOMERULAR FILTRATION RATE ML/MIN/1.73 SQ M.PREDICTED 16.6 mL/min/1.73m*2 Low >60.0 [facility] Comment on above: Result Comment: [facility]???s estimated glomerular filtration rate (eGFR) will no [...] of individuals. Performed By: #### L [id number] ####[facility] ([facility])[address] [place] [address] Glucose [Mass/Vol] 95 mg/dL Normal 70-100 [facility] Comment on above: Performed By: #### L [id number] ####[facility] ([facility])[address] [place] [address] Potassium [Moles/Vol] 3.6 mmol/L Normal 3.5-5.[address] [facility] Comment on above: Performed By: #### L [id number] ####[facility] ([facility])[address] [place] [address] Sodium [Moles/Vol] 136 mmol/L Normal 136-145 [facility] Comment on above: Performed By: #### L [id number] ####[facility] ([facility])[address] [place] [address] Urea nitrogen [Mass/Vol] 29 mg/dL High 7-25 [facility] Comment on above: Performed By: #### L [id number] ####[facility] ([facility])[address] [place] [address] UREA NITROGEN/CREATININE (MASS RATIO) IN SER/PLAS 10.4 Normal [facility] Comment on above: Performed By: #### L [id number] ####[facility] ([facility])[address] [place] [address] CBC WITH AUTO DIFFERENTIALon 02-05-2024 Basophils (Bld) [#/Vol] 0.02 10*3/uL Normal 0.00-0.20 [facility] Comment on above: Performed By: #### L [id number] ####[facility] ([facility])[address] [place] [address] Basophils/100 WBC (Bld) 0.3 % Normal 0.0-1.0 [facility] Comment on above: Performed By: #### L [id number] ####[facility] ([facility])[address] [place] [address] Eosinophils (Bld) [#/Vol] 0.30 10*3/uL Normal 0.00-0.50 [facility] Comment on above: Performed By: #### L [id number] ####[facility] ([facility])[address] [place] [address] Eosinophils/100 WBC (Bld) 4.0 % Normal 0.0-6.0 [facility] Comment on above: Performed By: #### L [id number] ####[facility] ([facility])[address] [place] [address] Erythrocyte distribution width (RBC) [Ratio] 16.3 % High 11.5-15.0 [facility] Comment on above: Performed By: #### L [id number] ####[facility] [place] [address] ERYTHROCYTE MEAN CORPUSCULAR HEMOGLOBIN CONCENTRATION (G/DL) BY AUTOMATED 30.2 g/dL Low 32.0-35.0 [facility] Comment on above: Performed By: #### L [id number] ####[facility] [place] [address] Hematocrit (Bld) [Volume fraction] 24.8 % Low 36.0-48.0 [facility] Comment on above: Performed By: #### L [id number] ####[facility] (BEAKER)[address] [place] [address] Hemoglobin (Bld) [Mass/Vol] 7.5 g/dL Low 12.0-15.0 [facility] Comment on above: Performed By: #### L [id number] ####[facility] (BEAKER)[address] [place] [address] Immature granulocytes (Bld) [#/Vol] 0.04 10*3/uL Normal 0.00-0.20 [facility] Comment on above: Performed By: #### L [id number] ####[facility] (BEAKER)[address] [place] [address] Immature granulocytes/100 WBC (Bld) 0.5 % Normal 0.0-1.0 [facility] Comment on above: Performed By: #### L [id number] ####[facility] (BEAKER)[address] [place] [address] Lymphocytes (Bld) [#/Vol] 0.58 10*3/uL Low 1.20-4.00 [facility] Comment on above: Performed By: #### L [id number] ####[facility] (BEAKER)[address] [place] [address] Lymphocytes/100 WBC (Bld) 7.7 % Low 20.0-45.0 [facility] Comment on above: Performed By: #### L [id number] ####[facility] ([facility])[address] [place] [address] MCH (RBC) [Entitic mass] 27.4 pg Normal 27.0-33.0 [facility] Comment on above: Performed By: #### L [id number] ####[facility] [place] [address] MCV (RBC) [Entitic vol] 90.5 fL Normal 82.0-98.0 [facility] Comment on above: Performed By: #### L [id number] ####[facility] ([facility])[address] [place] [address] Monocytes (Bld) [#/Vol] 0.52 10*3/uL Normal 0.10-1.00 [facility] [place] Comment on above: Performed By: #### L [id number] ####[facility] [place] [address] Monocytes/100 WBC (Bld) 6.9 % Normal 5.0-12.0 [facility] Comment on above: Performed By: #### L [id number] ####[facility] (BEAKER)[address] [place] [address] Neutrophils (Bld) [#/Vol] 6.03 10*3/uL Normal 1.60-7.60 [facility] Comment on above: Performed By: #### L [id number] ####[facility] (BE[facility]ER)[address] [place] [address] Neutrophils/100 WBC (Bld) 80.6 % High 40.0-72.0 [facility] Comment on above: Performed By: #### L [id number] ####[facility] (BEAKER)[address] [place] [address] NRBC (PER 100 WBCS) BY AUTOMATED COUNT 0.0 % Normal 0 [facility] Comment on above: Performed By: #### L [id number] ####[facility] (BE[facility]ER)[address] [place] [address] PLATELETS (10*3/UL) IN BLOOD AUTOMATED COUNT 208 10*3/uL Normal 150-400 [facility] Comment on above: Performed By: #### L [id number] ####[facility] ([facility])[address] [place] [address] RBC (Bld) [#/Vol] 2.74 10*6/uL Low 3.80-5.00 [facility] Comment on above: Performed By: #### L [id number] ####[facility] ([facility])[address] [place] [address] WBC (Bld) [#/Vol] 7.49 10*3/uL Normal 4.00-10.60 [facility] Comment on above: Performed By: #### L [id number] ####[facility] ([facility])[address] [place] [address] HPon 02-05-2024 HP H&P reviewed. The patient was examined and there are no changes to the H&P. Normal [facility] MAGNESIUMon 02-05-2024 Magnesium [Mass/Vol] 3.6 mg/dL High 1.9-2.7 [facility] Comment on above: Performed By: #### L [id number] ####[facility] ([facility])[address] [place] [address] MR BRAIN WO CONTRASTon 02-04 MR BRAIN WO CONTRAST Invalid Interpretation Code [facility] NURSNOTEon 02-05-2024 NURSNOTE Normal [facility] NURSNOTE Report called to Taty yo RN all questions answered. Normal [facility] OPNOTEon 02-05-2024 OPNOTE Normal [facility] POCT GLUCOSE METER UNSOLICIT ED RESULTSon 02-05-2024 Glucose [Mass/Vol] 117 mg/dL High 70-105 [facility] Comment on above: Order Comment: Waive d Testing in the ED is performed under the ED CLIA certificate #[id number]. Result Comment: [email or web address] Performed By: #### L [id number] ####[facility] ([facility] [place] [address] Glucose [Mass/Vol] 102 mg/dL Normal 70-105 [facility] Comment on above: Order Comment: Waive d Testing in the ED is performed under the ED CLIA certificate #[id number]. Result Comment: leul er Performed By: #### L [id number] ####[facility] ([facility])[address] [place] [address] Glucose [Mass/Vol] 100 mg/dL Normal 70-105 [facility] Comment on above: Order Comment: Waive d Testing in the ED is performed under the ED CLIA certificate #[id number]. Result Comment: og dyg Performed By: #### L [id number] ####[facility] ([facility])[address] [place] [address] Glucose [Mass/Vol] 114 mg/dL High 70-105 [facility] Comment on above: Order Comment: Waive d Testing in the ED is performed under the ED CLIA certificate #[id number]. Result Comment: [email or web address] tti Performed By: #### L [id number] ####[facility] ([facility])[address] [place] [address] ANESon 02-04-2024 ANES Normal [facility] ANTI-XA (HEPARIN LEVEL)on HEPARIN UNFRACTIONATED (U/ML) IN PPP BY CHROMOGENIC METHOD >1.00 Critically high 0.3-0.7 [facility] Comment on above: Result Comment: Maddy roxaban and Apixaban will interfere with the anti Xa assay used to monitor UFH and LMWH. Performed By: #### L [id number] ####[facility] ([facility])[address] [place] [address] APTTon 02-04-2024 ACTIVATED PARTIAL THROMBOPLASTIN TIME IN PPP BY COAGULATION ASSAY 45.7 Seconds High 25.0-35.0 [facility] Comment on above: Order Comment: Check aPTT every 6 hours while on heparin infusion, or per protocol. Result Comment: Clin ical significance of the APTT is questionable in the presence of heparin. Performed By: #### L [id number] ####[facility] ([facility])[address] [place] [address] ACTIVATED PARTIAL THROMBOPLASTIN TIME IN PPP BY COAGULATION ASSAY 40.3 Seconds High 25.0-35.0 [facility] Comment on above: Order Comment: Check aPTT every 6 hours while on heparin infusion, or per protocol. Result Comment: Clin ical significance of the APTT is questionable in the presence of heparin. Performed By: #### L [id number] ####[facility] ([facility])[address] [place] [address] BASIC METABOLIC PANELon 12- Anion gap [Moles/Vol] 15 mmol/L Normal 7-[address] [facility] Comment on above: Performed By: #### L [id number] ####[facility] ([facility])[address] [place] [address] Calcium [Mass/Vol] 8.0 mg/dL Low 8.6-10.3 [facility] Comment on above: Performed By: #### L [id number] ####[facility] ([facility])[address] [place] [address] Chloride [Moles/Vol] 96 mmol/L Low 98-107 [facility] Comment on above: Performed By: #### L [id number] ####[facility] ([facility])[address] [place] [address] CO2 [Moles/Vol] 29 mmol/L Normal 21-31 [facility] Comment on above: Performed By: #### L [id number] ####[facility] ([facility])[address] [place] [address] Creatinine [Mass/Vol] 1.87 mg/dL High 0.60-1.[address] [facility] Comment on above: Performed By: #### L [id number] ####[facility] ([facility])[address] [place] [address] GLOMERULAR FILTRATION RATE ML/MIN/1.73 SQ M.PREDICTED 26.9 mL/min/1.73m*2 Low >60.0 [facility] Comment on above: Result Comment: The [facility]???s estimated glomerular filtration rate (eGFR) will no [...] of individuals. Performed By: #### L [id number] ####[facility] ([facility])[address] [place] [address] Glucose [Mass/Vol] 95 mg/dL Normal 70-100 [facility] Comment on above: Performed By: #### L [id number] ####[facility] ([facility])[address] [place] [address] Potassium [Moles/Vol] 4.0 mmol/L Normal 3.5-5.[address] [facility] Comment on above: Performed By: #### L [id number] ####[facility] ([facility])[address] [place] [address] Sodium [Moles/Vol] 136 mmol/L Normal 136-145 [facility] Comment on above: Performed By: #### L [id number] ####[facility] ([facility] [place] [address] Urea nitrogen [Mass/Vol] 24 mg/dL Normal 7-25 [facility] Comment on above: Performed By: #### L [id number] ####[facility] [place] [address] UREA NITROGEN/CREATININE (MASS RATIO) IN SER/PLAS 12.8 Normal [facility] Comment on above: Performed By: #### L [id number] ####[facility] ([facility])[address] [place] [address] CBC WITH AUTO DIFFERENTIALon 02-04-2024 Basophils (Bld) [#/Vol] 0.02 10*3/uL Normal 0.00-0.20 [facility] Comment on above: Performed By: #### L [id number] ####[facility] ([facility] [place] [address] Basophils/100 WBC (Bld) 0.2 % Normal 0.0-1.0 [facility] Comment on above: Performed By: #### L [id number] ####[facility] ([facility])[address] [place] [address] Eosinophils (Bld) [#/Vol] 0.18 10*3/uL Normal 0.00-0.50 [facility] Comment on above: Performed By: #### L [id number] ####[facility] ([facility])[address] [place] [address] Eosinophils/100 WBC (Bld) 2.2 % Normal 0.0-6.0 [facility] Comment on above: Performed By: #### L [id number] ####[facility] ([facility])[address] [place] [address] Erythrocyte distribution width (RBC) [Ratio] 16.1 % High 11.5-15.0 [facility] Comment on above: Performed By: #### L [id number] ####[facility] ([facility] [place] [address] ERYTHROCYTE MEAN CORPUSCULAR HEMOGLOBIN CONCENTRATION (G/DL) BY AUTOMATED 31.4 g/dL Low 32.0-35.0 [facility] Comment on above: Performed By: #### L [id number] ####[facility] ([facility] [place] [address] Hematocrit (Bld) [Volume fraction] 28.0 % Low 36.0-48.0 [facility] Comment on above: Performed By: #### L [id number] ####[facility] (BE[facility]ER)[address] [place] [address] Hemoglobin (Bld) [Mass/Vol] 8.8 g/dL Low 12.0-15.0 [facility] Comment on above: Performed By: #### L [id number] ####[facility] ([facility]ER)[address] [place] [address] Immature granulocytes (Bld) [#/Vol] 0.04 10*3/uL Normal 0.00-0.20 [facility] Comment on above: Performed By: #### L [id number] ####[facility] ([facility] [place] [address] Immature granulocytes/100 WBC (Bld) 0.5 % Normal 0.0-1.0 [facility] Comment on above: Performed By: #### L [id number] ####[facility] ([facility] [place] [address] Lymphocytes (Bld) [#/Vol] 0.52 10*3/uL Low 1.20-4.00 [facility] Comment on above: Performed By: #### L [id number] ####[facility] ([facility] [place] [address] Lymphocytes/100 WBC (Bld) 6.5 % Low 20.0-45.0 [facility] Comment on above: Performed By: #### L [id number] ####[facility] (BE[facility]ER)[address] [place] [address] MCH (RBC) [Entitic mass] 28.3 pg Normal 27.0-33.0 [facility] Comment on above: Performed By: #### L [id number] ####[facility] ([facility]ER)[address] [place] [address] MCV (RBC) [Entitic vol] 90.0 fL Normal 82.0-98.0 [facility] Comment on above: Performed By: #### L [id number] ####[facility] ([facility]ER)[address] [place] [address] Monocytes (Bld) [#/Vol] 0.65 10*3/uL Normal 0.10-1.00 [facility] Comment on above: Performed By: #### L [id number] ####[facility] ([facility]ER)[address] [place] [address] Monocytes/100 WBC (Bld) 8.1 % Normal 5.0-12.0 [facility] Comment on above: Performed By: #### L [id number] ####[facility] ([facility]ER)[address] [place] [address] Neutrophils (Bld) [#/Vol] 6.61 10*3/uL Normal 1.60-7.60 [facility] Comment on above: Performed By: #### L [id number] ####[facility] ([facility]ER)[address] [place] [address] Neutrophils/100 WBC (Bld) 82.5 % High 40.0-72.0 [facility] Comment on above: Performed By: #### L [id number] ####[facility] ([facility]ER)[address] [place] [address] NRBC (PER 100 WBCS) BY AUTOMATED COUNT 0.0 % Normal 0 [facility] Comment on above: Performed By: #### L [id number] ####[facility] ([facility]ER)[address] [place] [address] PLATELETS (10*3/UL) IN BLOOD AUTOMATED COUNT 206 10*3/uL Normal 150-400 [facility] Comment on above: Performed By: #### L [id number] ####[facility] (BE[facility]ER)[address] [place] [address] RBC (Bld) [#/Vol] 3.11 10*6/uL Low 3.80-5.00 [facility] Comment on above: Performed By: #### L [id number] ####[facility] (BEAKER)[address] [place] [address] WBC (Bld) [#/Vol] 8.02 10*3/uL Normal 4.00-10.60 [facility] Comment on above: Performed By: #### L [id number] ####[facility] ([facility])[address] [place] [address] CT BRAIN PERFUSIONon 024 CT BRAIN PERFUSION Invalid Interpretation Code [facility] CT HEAD WO IV CONTRASTon CT HEAD WO IV CONTRAST [facility] HEAD W IV CONTRAST [facility] NECK W IV CONTRASTon CTA NECK W IV CONTRAST Invalid Interpretation Code [facility] MAGNESIUMon 02-04-2024 Magnesium [Mass/Vol] 3.1 mg/dL High 1.9-2.7 [facility] Comment on above: Performed By: #### L [id number] ####[facility] ([facility])[address] [place] [address] POCT GLUCOSE METER UNSOLICIT ED RESULTSon 02-04-2024 Glucose [Mass/Vol] 172 mg/dL High 70-105 [facility] Comment on above: Order Comment: Waive d Testing in the ED is performed under the ED CLIA certificate #[id number]. Result Comment: [email or web address] [email or web address] Performed By: #### L [id number] ####[facility] ([facility])[address] [place] [address] Glucose [Mass/Vol] 113 mg/dL High 70-105 [facility] Comment on above: Order Comment: Waive d Testing in the ED is performed under the ED CLIA certificate #[id number]. Result Comment: ezab [email or web address] Performed By: #### L [id number] ####[facility] ([facility])[address] [place] [address] VENOUS BLOOD GAS WITH IONIZE D CALCIUMon 02-04-2024 Base excess Calc (BldV) [Moles/Vol] 10.1 mmol/L Normal [facility] Comment on above: Performed By: #### L [id number] ####[facility] [id number] [place] [address] [place] CALCIUM IONIZED (MMOL/L) IN BLOOD 1.18 mmol/L Normal 1.15-1.33 [facility] Comment on above: Performed By: #### L [id number] ####[facility] [id number] [place] [address] [place] CO2 (BldV) [Partial pressure] 62 mm[Hg] High 40-50 [facility] Comment on above: Performed By: #### L [id number] ####[facility] [id number] [place] [address] [place] HCO3 (Bld) [Moles/Vol] 37.5 mmol/L Normal [facility] Comment on above: Performed By: #### L [id number] ####[facility] [id number] [place] [address] [place] Oxygen (BldV) [Partial pressure] 49 mm[Hg] High 35-45 [facility] Comment on above: Performed By: #### L [id number] ####[facility] [id number] [place] [address] [place] OXYGEN SATURATION (%) IN VENOUS BLOOD 79.9 % High 65.0-75.0 [facility] Comment on above: Performed By: #### L [id number] ####[facility] [id number] [place] [address] [place] PH OF VENOUS BLOOD 7.39 Normal 7.31-7.41 [facility] Comment on above: Performed By: #### L [id number] ####[facility] [id number] [place] [address] [place] 30on 02-03-2024 30 Normal [facility] 30 Normal [facility] APTTon 02-03-2024 ACTIVATED PARTIAL THROMBOPLASTIN TIME IN PPP BY COAGULATION ASSAY 91.2 Seconds High 25.0-35.0 [facility] Comment on above: Order Comment: Check aPTT every 6 hours while on heparin infusion, or per protocol. Result Comment: Clin ical significance of the APTT is questionable in the presence of heparin. Performed By: #### L [id number] ####[facility] (BEAKER)[address] [place] [address] ARTERIAL BLOOD GAS WITH CO-O XIMETRYon 02-03-2024 Base excess Calc (Bld) [Moles/Vol] 8.6 mmol/L High -2.0-3.0 [facility] Comment on above: Performed By: #### L [id number] ####[facility] [id number] [place] [address] [place] CARBOXYHEMOGLOBIN/HEMO GLOBIN TOTAL % IN BLOOD 1.6 % Normal 0.0-3.0 [facility] Comment on above: Performed By: #### L [id number] ####[facility] [id number] [place] [address] [place] CO2 (Bld) [Partial pressure] 47 mm[Hg] Normal 35-48 [facility] Comment on above: Performed By: #### L [id number] ####[facility] [id number] [place] [address] [place] DEOXYGENATED HEMOGLOBIN IN BLOOD 2.3 % Normal 1-5 [facility] Comment on above: Performed By: #### L [id number] ####[facility] [id number] [place] [address] [place] HCO3 (Bld) [Moles/Vol] 33.4 mmol/L High 21.0-28.0 [facility] Comment on above: Performed By: #### L [id number] ####[facility] [id number] [place] [address] [place] Hemoglobin (Bld) [Mass/Vol] 9.4 g/dL Low 11.7-17.4 [facility] Comment on above: Performed By: #### L [id number] ####[facility] [id number] [place] [address] [place] LPM 2 Normal [facility] Comment on above: Performed By: #### L [id number] ####[facility] [id number] [place] [address] [place] METHEMOGLOBIN/100 IN BLOOD 0.5 % Normal 0.0-1.5 [facility] Comment on above: Performed By: #### L [id number] ####[facility] [id number] [place] [address] [place] Oxygen (Bld) [Partial pressure] 72 mm[Hg] Low 83-100 [facility] Comment on above: Performed By: #### L [id number] ####[facility] [id number] [place] [address] [place] OXYGEN SATURATION (%) IN ARTERIAL BLOOD 97.7 % Normal 94.0-98.0 [facility] Comment on above: Performed By: #### L [id number] ####[facility] [id number] [place] [address] [place] OXYGENATED HEMOGLOBIN IN BLOOD 95.7 % High 90.0-95.0 [facility] Comment on above: Performed By: #### L [id number] ####[facility] [id number] [place] [address] [place] pH (Bld) 7.46 [pH] High 7.35-7.45 [facility] Comment on above: Performed By: #### L [id number] ####[facility] [id number] [place] [address] [place] SOURCE OF OXYGEN Nasal cannula Normal [facility] Comment on above: Performed By: #### L [id number] ####[facility] [id number] [place] [address] [place] BASIC METABOLIC PANELon 01-24 Anion gap [Moles/Vol] 14 mmol/L Normal 7-[address] [facility] Comment on above: Performed By: #### L [id number] ####[facility] (BEAKER)[address] [place] [address] Calcium [Mass/Vol] 8.3 mg/dL Low 8.6-10.3 [facility] Comment on above: Performed By: #### L [id number] ####[facility] (BEAKER)[address] [place] [address] Chloride [Moles/Vol] 94 mmol/L Low 98-107 [facility] Comment on above: Performed By: #### L [id number] ####[facility] ([facility])[address] [place] [address] CO2 [Moles/Vol] 31 mmol/L Normal 21-31 [facility] Comment on above: Performed By: #### L [id number] ####[facility] ([facility])[address] [place] [address] Creatinine [Mass/Vol] 1.51 mg/dL High 0.60-1.[address] [facility] Comment on above: Performed By: #### L [id number] ####[facility] ([facility])[address] [place] [address] GLOMERULAR FILTRATION RATE ML/MIN/1.73 SQ M.PREDICTED 34.7 mL/min/1.73m*2 Low >60.0 [facility] Comment on above: Result Comment: [facility]???s estimated glomerular filtration rate (eGFR) will no [...] of individuals. Performed By: #### L [id number] ####[facility] ([facility])[address] [place] [address] Glucose [Mass/Vol] 155 mg/dL High 70-100 [facility] Comment on above: Performed By: #### L [id number] ####[facility] ([facility])[address] [place] [address] Potassium [Moles/Vol] 4.0 mmol/L Normal 3.5-5.[address] [facility] Comment on above: Performed By: #### L [id number] ####[facility] (BEAKER)[address] [place] [address] Sodium [Moles/Vol] 135 mmol/L Low 136-145 [facility] Comment on above: Performed By: #### L [id number] ####[facility] (BEAKER)[address] [place] [address] Urea nitrogen [Mass/Vol] 19 mg/dL Normal 7-25 [facility] Comment on above: Performed By: #### L [id number] ####[facility] (BEAKER)[address] [place] [address] UREA NITROGEN/CREATININE (MASS RATIO) IN SER/PLAS 12.6 Normal [facility] Comment on above: Performed By: #### L [id number] ####[facility] (BEAKER)[address] [place] [address] Anion gap [Moles/Vol] 18 mmol/L Normal 7-[address] [facility] Comment on above: Performed By: #### L [id number] ####[facility] (BEAKER)[address] [place] [address] Calcium [Mass/Vol] 9.0 mg/dL Normal 8.6-10.3 [facility] Comment on above: Performed By: #### L [id number] ####[facility] (BEAKER)[address] [place] [address] Chloride [Moles/Vol] 96 mmol/L Low 98-107 [facility] Comment on above: Performed By: #### L [id number] ####[facility] (BEAKER)[address] [place] [address] CO2 [Moles/Vol] 26 mmol/L Normal 21-31 [facility] Comment on above: Performed By: #### L [id number] ####[facility] (BEAKER)[address] [place] [address] Creatinine [Mass/Vol] 1.55 mg/dL High 0.60-1.[address] [facility] Comment on above: Performed By: #### L [id number] ####[facility] ([facility])[address] [place] [address] GLOMERULAR FILTRATION RATE ML/MIN/1.73 SQ M.PREDICTED 33.7 mL/min/1.73m*2 Low >60.0 [facility] Comment on above: Result Comment: [facility]???s estimated glomerular filtration rate (eGFR) will no [...] of individuals. Performed By: #### L [id number] ####[facility] ([facility])[address] [place] [address] Glucose [Mass/Vol] 90 mg/dL Normal 70-100 [facility] Comment on above: Performed By: #### L [id number] ####[facility] ([facility])[address] [place] [address] Potassium [Moles/Vol] 4.6 mmol/L Normal 3.5-5.1 [facility] Comment on above: Performed By: #### L [id number] ####[facility] ([facility])[address] [place] [address] Sodium [Moles/Vol] 135 mmol/L Low 136-145 [facility] Comment on above: Performed By: #### L [id number] ####[facility] ([facility])[address] [place] [address] Urea nitrogen [Mass/Vol] 20 mg/dL Normal 7-25 [facility] Comment on above: Performed By: #### L [id number] ####[facility] ([facility])[address] [place] [address] UREA NITROGEN/CREATININE (MASS RATIO) IN SER/PLAS 12.9 Normal [facility] Comment on above: Performed By: #### L [id number] ####[facility] (BEAKER)[address] [place] [address] CALCIUM, IONIZEDon CALCIUM IONIZED (MMOL/L) IN BLOOD 1.13 mmol/L Low 1.15-1.33 [facility] Comment on above: Performed By: #### C ALCIUM, IONIZED ####[facility] RESPIRAT[facility] [id number] [place] [address] [place] CBC WITH AUTO DIFFERENTIALon 02-03-2024 Basophils (Bld) [#/Vol] 0.02 10*3/uL Normal 0.00-0.20 [facility] Comment on above: Performed By: #### L [id number] ####[facility] (BEAKER)[address] [place] [address] Basophils/100 WBC (Bld) 0.3 % Normal 0.0-1.0 [facility] Comment on above: Performed By: #### L [id number] ####[facility] (BEAKER)[address] [place] [address] Eosinophils (Bld) [#/Vol] 0.22 10*3/uL Normal 0.00-0.50 [facility] Comment on above: Performed By: #### L [id number] ####[facility] (BEAKER)[address] [place] [address] Eosinophils/100 WBC (Bld) 3.4 % Normal 0.0-6.0 [facility] Comment on above: Performed By: #### L [id number] ####[facility] (BEAKER)[address] [place] [address] Erythrocyte distribution width (RBC) [Ratio] 16.0 % High 11.5-15.0 [facility] Comment on above: Performed By: #### L [id number] ####[facility] (BEAKER)[address] [place] [address] ERYTHROCYTE MEAN CORPUSCULAR HEMOGLOBIN CONCENTRATION (G/DL) BY AUTOMATED 30.5 g/dL Low 32.0-35.0 [facility] Comment on above: Performed By: #### L [id number] ####[facility] [place] [address] Hematocrit (Bld) [Volume fraction] 26.6 % Low 36.0-48.0 [facility] Comment on above: Performed By: #### L [id number] ####[facility] ([facility])[address] [place] [address] Hemoglobin (Bld) [Mass/Vol] 8.1 g/dL Low 12.0-15.0 [facility] Comment on above: Performed By: #### L [id number] ####[facility] ([facility])[address] [place] [address] Immature granulocytes (Bld) [#/Vol] 0.05 10*3/uL Normal 0.00-0.20 [facility] Comment on above: Performed By: #### L [id number] ####[facility] ([facility])[address] [place] [address] Immature granulocytes/100 WBC (Bld) 0.8 % Normal 0.0-1.0 [facility] Comment on above: Performed By: #### L [id number] ####[facility] ([facility] [place] [address] Lymphocytes (Bld) [#/Vol] 0.45 10*3/uL Low 1.20-4.00 [facility] Comment on above: Performed By: #### L [id number] ####[facility] (BEAKER)[address] [place] [address] Lymphocytes/100 WBC (Bld) 6.9 % Low 20.0-45.0 [facility] Comment on above: Performed By: #### L [id number] ####[facility] (BEAKER)[address] [place] [address] MCH (RBC) [Entitic mass] 27.9 pg Normal 27.0-33.0 [facility] Comment on above: Performed By: #### L [id number] ####[facility] ([facility])[address] [place] [address] MCV (RBC) [Entitic vol] 91.7 fL Normal 82.0-98.0 [facility] Comment on above: Performed By: #### L [id number] ####[facility] ([facility])[address] [place] [address] Monocytes (Bld) [#/Vol] 0.46 10*3/uL Normal 0.10-1.00 [facility] Comment on above: Performed By: #### L [id number] ####[facility] ([facility])[address] [place] [address] Monocytes/100 WBC (Bld) 7.1 % Normal 5.0-12.0 [facility] Comment on above: Performed By: #### L [id number] ####[facility] ([facility])[address] [place] [address] Neutrophils (Bld) [#/Vol] 5.31 10*3/uL Normal 1.60-7.60 [facility] Comment on above: Performed By: #### L [id number] ####[facility] ([facility] [place] [address] Neutrophils/100 WBC (Bld) 81.5 % High 40.0-72.0 [facility] Comment on above: Performed By: #### L [id number] ####[facility] (BEAKER)[address] [place] [address] NRBC (PER 100 WBCS) BY AUTOMATED COUNT 0.0 % Normal 0 [facility] Comment on above: Performed By: #### L [id number] ####[facility] (BEAKER)[address] [place] [address] PLATELETS (10*3/UL) IN BLOOD AUTOMATED COUNT 188 10*3/uL Normal 150-400 [facility] Comment on above: Performed By: #### L [id number] ####[facility] (BEAKER)[address] [place] [address] RBC (Bld) [#/Vol] 2.90 10*6/uL Low 3.80-5.00 [facility] Comment on above: Performed By: #### L [id number] ####[facility] (BEAKER)[address] [place] [address] WBC (Bld) [#/Vol] 6.51 10*3/uL Normal 4.00-10.60 [facility] Comment on above: Performed By: #### L [id number] ####[facility] (BEAKER)[address] [place], [place] [address] Basophils (Bld) [#/Vol] 0.02 10*3/uL Normal 0.00-0.20 [facility] Comment on above: Performed By: #### L [id number] ####[facility] (BEAKER)[address] [place] [address] Basophils/100 WBC (Bld) 0.2 % Normal 0.0-1.0 [facility] Comment on above: Performed By: #### L [id number] ####[facility] (BEAKER)[address] [place] [address] Eosinophils (Bld) [#/Vol] 0.33 10*3/uL Normal 0.00-0.50 [facility] Comment on above: Performed By: #### L [id number] ####[facility] (BEAKER)[address] [place] [address] Eosinophils/100 WBC (Bld) 3.8 % Normal 0.0-6.0 [facility] Comment on above: Performed By: #### L [id number] ####[facility] (BEAKER)[address] [place] [address] Erythrocyte distribution width (RBC) [Ratio] 16.2 % High 11.5-15.0 [facility] Comment on above: Performed By: #### L [id number] ####[facility] (BEAKER)[address] [place] [address] ERYTHROCYTE MEAN CORPUSCULAR HEMOGLOBIN CONCENTRATION (G/DL) BY AUTOMATED 31.4 g/dL Low 32.0-35.0 [facility] Comment on above: Performed By: #### L [id number] ####[facility] (BEAKER)[address] [place] [address] Hematocrit (Bld) [Volume fraction] 30.9 % Low 36.0-48.0 [facility] Comment on above: Performed By: #### L [id number] ####[facility] (BEAKER)[address] [place] [address] Hemoglobin (Bld) [Mass/Vol] 9.7 g/dL Low 12.0-15.0 [facility] Comment on above: Performed By: #### L [id number] ####[facility] (BEAKER)[address] [place] [address] Immature granulocytes (Bld) [#/Vol] 0.06 10*3/uL Normal 0.00-0.20 [facility] Comment on above: Performed By: #### L [id number] ####[facility] (BEAKER)[address] [place] [address] Immature granulocytes/100 WBC (Bld) 0.7 % Normal 0.0-1.0 [facility] Comment on above: Performed By: #### L [id number] ####[facility] (BEAKER)[address] [place] [address] Lymphocytes (Bld) [#/Vol] 1.07 10*3/uL Low 1.20-4.00 [facility] Comment on above: Performed By: #### L [id number] ####[facility] (BEAKER)[address] [place] [address] Lymphocytes/100 WBC (Bld) 12.4 % Low 20.0-45.0 [facility] Comment on above: Performed By: #### L [id number] ####[facility] (BEAKER)[address] [place] [address] MCH (RBC) [Entitic mass] 28.0 pg Normal 27.0-33.0 [facility] Comment on above: Performed By: #### L [id number] ####[facility] ([facility] [place] [address] MCV (RBC) [Entitic vol] 89.0 fL Normal 82.0-98.0 [facility] Comment on above: Performed By: #### L [id number] ####[facility] ([facility] [place] [address] Monocytes (Bld) [#/Vol] 0.51 10*3/uL Normal 0.10-1.00 [facility] Comment on above: Performed By: #### L [id number] ####[facility] (BEAKER)[address] [place] [address] Monocytes/100 WBC (Bld) 5.9 % Normal 5.0-12.0 [facility] Comment on above: Performed By: #### L [id number] ####[facility] ([facility] [place] [address] Neutrophils (Bld) [#/Vol] 6.63 10*3/uL Normal 1.60-7.60 [facility] Comment on above: Performed By: #### L [id number] ####[facility] (BEAKER)[address] [place] [address] Neutrophils/100 WBC (Bld) 77.0 % High 40.0-72.0 [facility] Comment on above: Performed By: #### L [id number] ####[facility] (BEAKER)[address] [place] [address] NRBC (PER 100 WBCS) BY AUTOMATED COUNT 0.0 % Normal 0 [facility] Comment on above: Performed By: #### L [id number] ####[facility] (BEAKER)[address] [place] [address] PLATELETS (10*3/UL) IN BLOOD AUTOMATED COUNT 208 10*3/uL Normal 150-400 [facility] Comment on above: Performed By: #### L [id number] ####[facility] ([facility])[address] [place] [address] RBC (Bld) [#/Vol] 3.47 10*6/uL Low 3.80-5.00 [facility] Comment on above: Performed By: #### L [id number] ####[facility] ([facility])[address] [place] [address] WBC (Bld) [#/Vol] 8.62 10*3/uL Normal 4.00-10.60 [facility] Comment on above: Performed By: #### L [id number] ####[facility] ([facility])[address] [place] [address] COMPREHENSIVE METABOLIC PANE [facility] 02-03-2024 Albumin [Mass/Vol] 3.5 g/dL Normal 3.5-5.7 [facility] Comment on above: Performed By: #### L [id number] ####[facility] ([facility])[address] [place] [address] ALP [Catalytic activity/Vol] 96 U/L Normal 34-104 [facility] Comment on above: Performed By: #### L [id number] ####[facility] ([facility])[address] [place] [address] ALT [Catalytic activity/Vol] 5 U/L Low 7-52 [facility] Comment on above: Performed By: #### L [id number] ####[facility] ([facility] [place] [address] Anion gap [Moles/Vol] 14 mmol/L Normal 7-[address] [facility] Comment on above: Performed By: #### L [id number] ####[facility] ([facility] [place] [address] AST [Catalytic activity/Vol] 11 U/L Low 13-39 [facility] Comment on above: Performed By: #### L [id number] ####[facility] [place] [address] Bilirubin [Mass/Vol] 0.8 mg/dL Normal 0.3-1.0 [facility] Comment on above: Performed By: #### L [id number] ####[facility] (BEAKER)[address] [place] [address] Calcium [Mass/Vol] 9.2 mg/dL Normal 8.6-10.3 [facility] Comment on above: Performed By: #### L [id number] ####[facility] (BEAKER)[address] [place] [address] Chloride [Moles/Vol] 95 mmol/L Low 98-107 [facility] Comment on above: Performed By: #### L [id number] ####[facility] (BEAKER)[address] [place] [address] CO2 [Moles/Vol] 31 mmol/L Normal 21-31 [facility] Comment on above: Performed By: #### L [id number] ####[facility] (BEAKER)[address] [place] [address] Creatinine [Mass/Vol] 1.54 mg/dL High 0.60-1.[address] [facility] Comment on above: Performed By: #### L [id number] ####[facility] ([facility] [place] [address] GLOMERULAR FILTRATION RATE ML/MIN/1.73 SQ M.PREDICTED 33.9 mL/min/1.73m*2 Low >60.0 [facility] Comment on above: Result Comment: The [facility]???s estimated glomerular filtration rate (eGFR) will no [...] group of individuals. Performed By: #### L [id number] ####[facility] ([facility])[address] [place] [address] Glucose [Mass/Vol] 89 mg/dL Normal 70-100 [facility] Comment on above: Performed By: #### L [id number] ####[facility] ([facility])[address] [place] [address] Potassium [Moles/Vol] 4.1 mmol/L Normal 3.5-5.[address] [facility] Comment on above: Performed By: #### L [id number] ####[facility] ([facility])[address] [place] [address] Protein [Mass/Vol] 6.2 g/dL Normal 6.0-8.3 [facility] Comment on above: Performed By: #### L [id number] ####[facility] ([facility])[address] [place] [address] Sodium [Moles/Vol] 136 mmol/L Normal 136-145 [facility] Comment on above: Performed By: #### L [id number] ####[facility] ([facility])[address] [place] [address] Urea nitrogen [Mass/Vol] 20 mg/dL Normal 7-25 [facility] Comment on above: Performed By: #### L [id number] ####[facility] ([facility])[address] [place] [address] UREA NITROGEN/CREATININE (MASS RATIO) IN SER/PLAS 13.0 Normal [facility] Comment on above: Performed By: #### L [id number] ####[facility] ([facility])[address] [place] [address] CONSULTon 02-03-2024 CONSULT Normal [facility] CTA ABDOMEN PELVIS W IV CONT RASTon 02-03-2024 CTA ABDOMEN PELVIS W IV CONTRAST Normal [facility] LACTIC ACID WITH 4 HOUR REFL EXon 02-03-2024 LACTATE (MMOL/L) IN SER/PLAS 0.7 mmol/L Normal 0.5-2.2 [facility] Comment on above: Performed By: #### L [id number] ####[facility] ([facility])[address] [place] [address] LACTATE (MMOL/L) IN SER/PLAS 1.4 mmol/L Normal 0.5-2.2 [facility] Comment on above: Performed By: #### L [id number] ####[facility] ([facility])[address] [place] [address] MAGNESIUMon 02-03-2024 Magnesium [Mass/Vol] 2.3 mg/dL Normal 1.9-2.7 [facility] Comment on above: Performed By: #### L [id number] ####[facility] ([facility])[address] [place] [address] Magnesium [Mass/Vol] 2.3 mg/dL Normal 1.9-2.7 [facility] Comment on above: Performed By: #### L [id number] ####[facility] ([facility])[address] [place] [address] NURSNOTEon 02-03-2024 NURSNOTE Normal [facility] PHOSPHORUSon 02-03-2024 Magnesium [Mass/Vol] 4.8 mg/dL Normal 2.5-5.0 [facility] Comment on above: Performed By: #### L [id number] ####[facility] ([facility])[address] [place] [address] POCT GLUCOSE METER UNSOLICIT ED RESULTSon 02-03-2024 Glucose [Mass/Vol] 105 mg/dL Normal 70-105 [facility] Comment on above: Order Comment: Waive d Testing in the ED is performed under the ED CLIA certificate #[id number]. Result Comment: ezab ors2 Performed By: #### L [id number] ####[facility] ([facility])[address] [place] [address] Glucose [Mass/Vol] 110 mg/dL High 70-105 [facility] Comment on above: Order Comment: Waive d Testing in the ED is performed under the ED CLIA certificate #[id number]. Result Comment: ezab ors2 Performed By: #### L [id number] ####[facility] ([facility])[address] [place] [address] POTASSIUM, WHOLE BLOODon Potassium [Moles/Vol] 4.2 mmol/L Normal 3.5-5.1 [facility] Comment on above: Performed By: #### P OTASSIUM, WHOLE BLOOD ####[facility] [id number] [place] [address] [place] SODIUM, WHOLE BLOODon 2023 SODIUM, WHOLE BLOOD 131 Low 136-145 [facility] Comment on above: Performed By: #### S ODIUM, WHOLE BLOOD ####[facility] [id number] [place] [address] [place] TROPONIN Ion 02-03-2024 Troponin I.cardiac [Mass/Vol] 0.05 ng/mL High 0.00-0.04 [facility] Comment on above: Performed By: #### L [id number] ####[facility] ([facility])[address] [place] [address] Troponin I.cardiac [Mass/Vol] 0.06 ng/mL High 0.00-0.04 [facility] Comment on above: Performed By: #### L [id number] ####[facility] ([facility])[address] [place] [address] Troponin I.cardiac [Mass/Vol] 0.05 ng/mL High 0.00-0.04 [facility] Comment on above: Performed By: #### L [id number] ####[facility] ([facility])[address] [place] [address] TYPE AND SCREENon 02-03-2024 AB SCREEN Negative Normal [facility] Comment on above: Performed By: #### L [id number] ####[facility], ABO group Nom (Bld) O Normal [facility] Comment on above: Performed By: #### L [id number] ####[facility], RH TYPE IN BLOOD Positive Normal [facility] Comment on above: Performed By: #### L [id number] ####[facility], 30on 02-02-2024 30 Normal [facility] 30 Normal [facility] ARTERIAL BLOOD GAS WITH IONI ZED CALCIUMon 02-02-2024 Base excess Calc (Bld) [Moles/Vol] 3.2 mmol/L High -2.0-3.0 [facility] Comment on above: Order Comment: Bipap 12/6 Performed By: #### L [id number] ####[facility] RESPIRATORY [id number] [place] [address] [place] CALCIUM IONIZED (MMOL/L) IN BLOOD 1.19 mmol/L Normal 1.15-1.33 [facility] Comment on above: Order Comment: Bipap 12/6 Performed By: #### L [id number] ####[facility] RESPIRATORY [id number] [place] [address] [place] CO2 (Bld) [Partial pressure] 45 mm[Hg] Normal 35-48 [facility] Comment on above: Order Comment: Bipap 12/6 Performed By: #### L [id number] ####[facility] RESPIRATORY [id number] [place] [address] [place] FIO2 50 % Normal [facility] Comment on above: Order Comment: Bipap 12/6 Performed By: #### L [id number] ####[facility] RESPIRATORY [id number] [place] [address] [place] HCO3 (Bld) [Moles/Vol] 28.5 mmol/L High 21.0-28.0 [facility] Comment on above: Order Comment: Bipap 12/6 Performed By: #### L [id number] ####[facility] RESPIRATORY [id number] [place] [address] [place] Oxygen (Bld) [Partial pressure] 187 mm[Hg] High 83-100 [facility] Comment on above: Order Comment: Bipap 12/6 Performed By: #### L [id number] ####[facility] RESPIRATORY [id number] [place] [address] [place] OXYGEN SATURATION (%) IN ARTERIAL BLOOD 100.0 % High 94.0-98.0 [facility] Comment on above: Order Comment: Bipap 12/6 Performed By: #### L [id number] ####[facility] RESPIRATORY [id number] [place] [address] [place] PEEP 6 cmH2O Normal [facility] Comment on above: Order Comment: Bipap 12/6 Performed By: #### L [id number] ####[facility] RESPIRATORY [id number] [place] [address] [place] pH (Bld) 7.41 [pH] Normal 7.35-7.45 [facility] Comment on above: Order Comment: Bipap 12/6 Performed By: #### L [id number] ####[facility] RESPIRATORY [id number] [place] [address] [place] RESPIRATORY RATE 12 Normal [facility] Comment on above: Order Comment: Bipap 12/6 Performed By: #### L [id number] ####[facility] RESPIRATORY [id number] [place] [address] [place] SOURCE OF OXYGEN Bi-PAP Normal [facility] Comment on above: Order Comment: Bipap 12/6 Performed By: #### L [id number] ####[facility] RESPIRATORY [id number] [place] [address] [place] B-TYPE NATRIURETIC PEPTIDEon 02-02-2024 Natriuretic peptide B (Bld) [Mass/Vol] 1109 pg/mL High 0-100 [facility] Comment on above: Performed By: #### L [id number] ####[facility] (BEAKER)[address] [place] [address] CBC WITH AUTO DIFFERENTIALon 02-02-2024 Basophils (Bld) [#/Vol] 0.03 10*3/uL Normal 0.00-0.20 [facility] Comment on above: Performed By: #### L [id number] ####[facility] (BEAKER)[address] [place] [address] Basophils/100 WBC (Bld) 0.4 % Normal 0.0-1.0 [facility] Comment on above: Performed By: #### L [id number] ####[facility] (BEAKER)[address] [place] [address] Eosinophils (Bld) [#/Vol] 0.24 10*3/uL Normal 0.00-0.50 [facility] Comment on above: Performed By: #### L [id number] ####[facility] (BEAKER)[address] [place] [address] Eosinophils/100 WBC (Bld) 3.0 % Normal 0.0-6.0 [facility] Comment on above: Performed By: #### L [id number] ####[facility] (BEAKER)[address] [place] [address] Erythrocyte distribution width (RBC) [Ratio] 16.5 % High 11.5-15.0 [facility] Comment on above: Performed By: #### L [id number] ####[facility] (BEAKER)[address] [place] [address] ERYTHROCYTE MEAN CORPUSCULAR HEMOGLOBIN CONCENTRATION (G/DL) BY AUTOMATED 30.4 g/dL Low 32.0-35.0 [facility] Comment on above: Performed By: #### L [id number] ####[facility] (BEAKER)[address] [place] [address] Hematocrit (Bld) [Volume fraction] 29.3 % Low 36.0-48.0 [facility] Comment on above: Performed By: #### L [id number] ####[facility] ([facility])[address] [place] [address] Hemoglobin (Bld) [Mass/Vol] 8.9 g/dL Low 12.0-15.0 [facility] Comment on above: Performed By: #### L [id number] ####[facility] ([facility])[address] [place] [address] Immature granulocytes (Bld) [#/Vol] 0.07 10*3/uL Normal 0.00-0.20 [facility] Comment on above: Performed By: #### L [id number] ####[facility] [place] [address] Immature granulocytes/100 WBC (Bld) 0.9 % Normal 0.0-1.0 [facility] Comment on above: Performed By: #### L [id number] ####[facility] [place] [address] Lymphocytes (Bld) [#/Vol] 1.34 10*3/uL Normal 1.20-4.00 [facility] Comment on above: Performed By: #### L [id number] ####[facility] [place] [address] Lymphocytes/100 WBC (Bld) 16.5 % Low 20.0-45.0 [facility] Comment on above: Performed By: #### L [id number] ####[facility] ([facility])[address] [place] [address] MCH (RBC) [Entitic mass] 28.2 pg Normal 27.0-33.0 [facility] Comment on above: Performed By: #### L [id number] ####[facility] (BEAKER)[address] [place] [address] MCV (RBC) [Entitic vol] 92.7 fL Normal 82.0-98.0 [facility] Comment on above: Performed By: #### L [id number] ####[facility] (BEAKER)[address] [place] [address] Monocytes (Bld) [#/Vol] 0.52 10*3/uL Normal 0.10-1.00 [facility] Comment on above: Performed By: #### L [id number] ####[facility] (BEAKER)[address] [place] [address] Monocytes/100 WBC (Bld) 6.4 % Normal 5.0-12.0 [facility] Comment on above: Performed By: #### L [id number] ####[facility] ([facility])[address] [place] [address] Neutrophils (Bld) [#/Vol] 5.91 10*3/uL Normal 1.60-7.60 [facility] Comment on above: Performed By: #### L [id number] ####[facility] ([facility])[address] [place] [address] Neutrophils/100 WBC (Bld) 72.8 % High 40.0-72.0 [facility] Comment on above: Performed By: #### L [id number] ####[facility] ([facility])[address] [place] [address] NRBC (PER 100 WBCS) BY AUTOMATED COUNT 0.0 % Normal 0 [facility] Comment on above: Performed By: #### L [id number] ####[facility] ([facility])[address] [place] [address] PLATELETS (10*3/UL) IN BLOOD AUTOMATED COUNT 155 10*3/uL Normal 150-400 [facility] Comment on above: Performed By: #### L [id number] ####[facility] ([facility])[address] [place], [place] [address] RBC (Bld) [#/Vol] 3.16 10*6/uL Low 3.80-5.00 [facility] Comment on above: Performed By: #### L [id number] ####[facility] ([facility])[address] [place], [place] [address] WBC (Bld) [#/Vol] 8.11 10*3/uL Normal 4.00-10.60 [facility] Comment on above: Performed By: #### L [id number] ####[facility] ([facility])[address] [place] [address] COMPREHENSIVE METABOLIC PANE Bao 02-02-2024 Albumin [Mass/Vol] 3.4 g/dL Low 3.5-5.7 [facility] Comment on above: Performed By: #### L [id number] ####[facility] (BEAKER)[address] [place] [address] ALP [Catalytic activity/Vol] 90 U/L Normal 34-104 [facility] Comment on above: Performed By: #### L [id number] ####[facility] ([facility]ER)[address] [place] [address] ALT [Catalytic activity/Vol] 5 U/L Low 7-52 [facility] Comment on above: Performed By: #### L [id number] ####[facility] (BEAKER)[address] [place] [address] Anion gap [Moles/Vol] 9 mmol/L Normal 7-[address] [facility] Comment on above: Performed By: #### L [id number] ####[facility] (BEAKER)[address] [place] [address] AST [Catalytic activity/Vol] 11 U/L Low 13-39 [facility] Comment on above: Performed By: #### L [id number] ####[facility] ([facility]AKER)[address] [place] [address] Bilirubin [Mass/Vol] 0.5 mg/dL Normal 0.3-1.0 [facility] Comment on above: Performed By: #### L [id number] ####[facility] ([facility]AKER)[address] [place] [address] Calcium [Mass/Vol] 8.3 mg/dL Low 8.6-10.3 [facility] Comment on above: Performed By: #### L [id number] ####[facility] ([facility]AKER)[address] [place] [address] Chloride [Moles/Vol] 101 mmol/L Normal 98-107 [facility] Comment on above: Performed By: #### L [id number] ####[facility] (BEAKER)[address] [place] [address] CO2 [Moles/Vol] 26 mmol/L Normal 21-31 [facility] Comment on above: Performed By: #### L [id number] ####[facility] ([facility])[address] [place] [address] Creatinine [Mass/Vol] 1.28 mg/dL High 0.60-1.[address] [facility] Comment on above: Performed By: #### L [id number] ####[facility] ([facility])[address] [place] [address] GLOMERULAR FILTRATION RATE ML/MIN/1.73 SQ M.PREDICTED 42.4 mL/min/1.73m*2 Low >60.0 [facility] Comment on above: Result Comment: The [facility]???s estimated glomerular filtration rate (eGFR) will no [...] group of individuals. Performed By: #### L [id number] ####[facility] ([facility])[address] [place] [address] Glucose [Mass/Vol] 95 mg/dL Normal 70-100 [facility] Comment on above: Performed By: #### L [id number] ####[facility] ([facility])[address] [place] [address] Potassium [Moles/Vol] 4.4 mmol/L Normal 3.5-5.[address] [facility] Comment on above: Performed By: #### L [id number] ####[facility] ([facility])[address] [place] [address] Protein [Mass/Vol] 5.7 g/dL Low 6.0-8.3 [facility] Comment on above: Performed By: #### L [id number] ####[facility] ([facility])[address] [place] [address] Sodium [Moles/Vol] 132 mmol/L Low 136-145 [facility] Comment on above: Performed By: #### L [id number] ####[facility] ([facility])[address] [place] [address] Urea nitrogen [Mass/Vol] 21 mg/dL Normal 7-25 [facility] Comment on above: Performed By: #### L [id number] ####[facility] ([facility])[address] [place] [address] UREA NITROGEN/CREATININE (MASS RATIO) IN SER/PLAS 16.4 Normal [facility] Comment on above: Performed By: #### L [id number] ####[facility] ([facility])[address] [place] [address] CONSULTon 02-02-2024 CONSULT [facility] CONSULT [facility] CONSULT Normal [facility] HPon 02-02-2024 HP Normal [facility] HP Normal [facility] LIPID PANELon 02-02-2024 CHOL/HDL 3.3 mg/dL Normal [facility] Comment on above: Performed By: #### L [id number] ####[facility] ([facility])[address] [place] [address] Cholesterol [Mass/Vol] 148 mg/dL Normal 120-200 [facility] Comment on above: Performed By: #### L [id number] ####[facility] ([facility])[address] [place] [address] Magnesium [Mass/Vol] 100 mg/dL Normal 40-149 [facility] Comment on above: Result Comment: TRIG LYCERIDE REFERENCE RANGE:20 YEARS AND OLDER CARDIOVASCULAR RISKLESS THAN 150 mg/dL LOW [id number] TO 199 mg/dL BORDERLINE [id number] mg/dL AND GREATER HIGH RISK Performed By: #### L [id number] ####[facility] ([facility])[address] [place] [address] Magnesium [Mass/Vol] 83 mg/dL Normal 0-160 [facility] Comment on above: Performed By: #### L [id number] ####[facility] [place] [address] Magnesium [Mass/Vol] 45 mg/dL Normal 23-92 [facility] Comment on above: Performed By: #### L [id number] ####[facility] [place] [address] NON HDL CHOL. (LDL+VLDL) 103 Normal [facility] Comment on above: Performed By: #### L [id number] ####[facility] ([facility])[address] [place] [address] TOTAL VLDL-C 20 mg/dL Normal 0-40 [facility] Comment on above: Performed By: #### L [id number] ####[facility] ([facility])[address] [place] [address] MAGNESIUMon 02-02-2024 Magnesium [Mass/Vol] 2.6 mg/dL Normal 1.9-2.7 [facility] Comment on above: Performed By: #### L [id number] ####[facility] ([facility])[address] [place] [address] PLATELET COUNTon 02-02-2024 PLATELETS (10*3/UL) IN BLOOD AUTOMATED COUNT 177 10*3/uL Normal 150-400 [facility] Comment on above: Performed By: #### L [id number] ####[facility] ([facility])[address] [place] [address] POCT GLUCOSE METER UNSOLICIT ED RESULTSon 02-02-2024 Glucose [Mass/Vol] 117 mg/dL High 70-105 [facility] Comment on above: Order Comment: Waive d Testing in the ED is performed under the ED CLIA certificate #[id number]. Result Comment: ashley melissa Performed By: #### L [id number] ####[facility] [place] [address] Glucose [Mass/Vol] 97 mg/dL Normal 70-105 [facility] Comment on above: Order Comment: Waive d Testing in the ED is performed under the ED CLIA certificate #[id number]. Result Comment: [email or web address] [email or web address] Performed By: #### L [id number] ####[facility] ([facility])[address] [place] [address] Glucose [Mass/Vol] 91 mg/dL Normal 70-105 [facility] Comment on above: Order Comment: Waive d Testing in the ED is performed under the ED CLIA certificate #[id number]. Result Comment: [email or web address] Performed By: #### L [id number] ####[facility] ([facility])[address] [address] Glucose [Mass/Vol] 93 mg/dL Normal 70-105 [facility] Comment on above: Order Comment: Waive d Testing in the ED is performed under the ED CLIA certificate #[id number]. Result Comment: [email or web address] Performed By: #### L [id number] ####[facility] ([facility])[address] [place] [address] T4, FREEon 02-02-2024 THYROXINE (T4) FREE (NG/DL) IN SER/PLAS 1.61 ng/dL Normal 0.71-1.85 [facility] Comment on above: Performed By: #### L [id number] ####[facility] ([facility])[address] [place] [address] TROPONIN Ion 02-02-2024 Troponin I.cardiac [Mass/Vol] 0.06 ng/mL High 0.00-0.04 [facility] Comment on above: Performed By: #### L [id number] ####[facility] ([facility])[address] [place] [address] Troponin I.cardiac [Mass/Vol] 0.08 ng/mL High 0.00-0.04 [facility] Comment on above: Performed By: #### L [id number] ####[facility] ([facility])[address] [place] [address] Troponin I.cardiac [Mass/Vol] 0.07 ng/mL High 0.00-0.04 [facility] Comment on above: Performed By: #### L [id number] ####[facility] (BEAKER)[address] [place] [address] TSHon 02-02-2024 THYROTROPIN (MIU/L) IN SER/PLAS BY DETECTION LIMIT <= 0.05 MIU/L 5.42 mIU/L Normal 0.34-5.60 [facility] Comment on above: Performed By: #### L [id number] ####[facility] (BEAKER)[address] [place] [address] 30on 01-31-2024 30 The patient is Moderately Stable - Low risk of patient condition declining or worsening The patient's goals for the shift include sleep/rest The clinical goals for the shift include VSS/rest Normal [facility] 30 Normal [facility] BASIC METABOLIC PANELon 12- Anion gap [Moles/Vol] 8 mmol/L Normal 7-[address] [facility] Comment on above: Performed By: #### L [id number] ####[facility] (BEAKER)[address] [place] [address] Calcium [Mass/Vol] 8.0 mg/dL Low 8.6-10.3 [facility] Comment on above: Performed By: #### L [id number] ####[facility] (BEAKER)[address] [place] [address] Chloride [Moles/Vol] 106 mmol/L Normal 98-107 [facility] Comment on above: Performed By: #### L [id number] ####[facility] ([facility]ER)[address] [place] [address] CO2 [Moles/Vol] 28 mmol/L Normal 21-31 [facility] Comment on above: Performed By: #### L [id number] ####[facility] ([facility]ER)[address] [place] [address] Creatinine [Mass/Vol] 1.39 mg/dL High 0.60-1.[address] [facility] Comment on above: Performed By: #### L [id number] ####[facility] ([facility])[address] [place] [address] GLOMERULAR FILTRATION RATE ML/MIN/1.73 SQ M.PREDICTED 38.4 mL/min/1.73m*2 Low >60.0 [facility] Comment on above: Result Comment: The [facility]???s estimated glomerular filtration rate (eGFR) will no [...] of individuals. Performed By: #### L [id number] ####[facility] ([facility])[address] [place] [address] Glucose [Mass/Vol] 91 mg/dL Normal 70-100 [facility] Comment on above: Performed By: #### L [id number] ####[facility] ([facility])[address] [place] [address] Potassium [Moles/Vol] 4.3 mmol/L Normal 3.5-5.[address] [facility] Comment on above: Performed By: #### L [id number] ####[facility] ([facility])[address] [place] [address] Sodium [Moles/Vol] 138 mmol/L Normal 136-145 [facility] Comment on above: Performed By: #### L [id number] ####[facility] ([facility])[address] [place] [address] Urea nitrogen [Mass/Vol] 29 mg/dL High 7-25 [facility] Comment on above: Performed By: #### L [id number] ####[facility] ([facility])[address] [place] [address] UREA NITROGEN/CREATININE (MASS RATIO) IN SER/PLAS 20.9 Normal [facility] Comment on above: Performed By: #### L [id number] ####[facility] [place] [address] CBC WITH AUTO DIFFERENTIALon 01-31-2024 Basophils (Bld) [#/Vol] 0.03 10*3/uL Normal 0.00-0.20 [facility] Comment on above: Performed By: #### L [id number] ####[facility] ([facility])[address] [place] [address] Basophils/100 WBC (Bld) 0.3 % Normal 0.0-1.0 [facility] Comment on above: Performed By: #### L [id number] ####[facility] ([facility])[address] [place] [address] Eosinophils (Bld) [#/Vol] 0.19 10*3/uL Normal 0.00-0.50 [facility] Comment on above: Performed By: #### L [id number] ####[facility] ([facility])[address] [place] [address] Eosinophils/100 WBC (Bld) 1.8 % Normal 0.0-6.0 [facility] Comment on above: Performed By: #### L [id number] ####[facility] [place] [address] Erythrocyte distribution width (RBC) [Ratio] 17.0 % High 11.5-15.0 [facility] Comment on above: Performed By: #### L [id number] ####[facility] [place] [address] ERYTHROCYTE MEAN CORPUSCULAR HEMOGLOBIN CONCENTRATION (G/DL) BY AUTOMATED 30.5 g/dL Low 32.0-35.0 [facility] Comment on above: Performed By: #### L [id number] ####[facility] (BEAKER)[address] [place] [address] Hematocrit (Bld) [Volume fraction] 27.2 % Low 36.0-48.0 [facility] Comment on above: Performed By: #### L [id number] ####[facility] (BEAKER)[address] [place] [address] Hemoglobin (Bld) [Mass/Vol] 8.3 g/dL Low 12.0-15.0 [facility] Comment on above: Performed By: #### L [id number] ####[facility] (BEAKER)[address] [place] [address] Immature granulocytes (Bld) [#/Vol] 0.04 10*3/uL Normal 0.00-0.20 [facility] Comment on above: Performed By: #### L [id number] ####[facility] ([facility] [place] [address] Immature granulocytes/100 WBC (Bld) 0.4 % Normal 0.0-1.0 [facility] Comment on above: Performed By: #### L [id number] ####[facility] (BEAKER)[address] [place] [address] Lymphocytes (Bld) [#/Vol] 1.44 10*3/uL Normal 1.20-4.00 [facility] Comment on above: Performed By: #### L [id number] ####[facility] (BEAKER)[address] [place] [address] Lymphocytes/100 WBC (Bld) 13.6 % Low 20.0-45.0 [facility] Comment on above: Performed By: #### L [id number] ####[facility] (BEAKER)[address] [place] [address] MCH (RBC) [Entitic mass] 28.3 pg Normal 27.0-33.0 [facility] Comment on above: Performed By: #### L [id number] ####[facility] (BEAKER)[address] [place] [address] MCV (RBC) [Entitic vol] 92.8 fL Normal 82.0-98.0 [facility] Comment on above: Performed By: #### L [id number] ####[facility] ([facility]AKER)[address] [place] [place] [address] Monocytes (Bld) [#/Vol] 0.73 10*3/uL Normal 0.10-1.00 [facility] Comment on above: Performed By: #### L [id number] ####[facility] (BEAKER)[address] [place] [address] Monocytes/100 WBC (Bld) 6.9 % Normal 5.0-12.0 [facility] Comment on above: Performed By: #### L [id number] ####[facility] (BEAKER)[address] [place], [place] [address] Neutrophils (Bld) [#/Vol] 8.12 10*3/uL High 1.60-7.60 [facility] Comment on above: Performed By: #### L [id number] ####[facility] (BEAKER)[address] [place] [address] Neutrophils/100 WBC (Bld) 77.0 % High 40.0-72.0 [facility] Comment on above: Performed By: #### L [id number] ####[facility] (BEAKER)[address] [place] [address] NRBC (PER 100 WBCS) BY AUTOMATED COUNT 0.0 % Normal 0 [facility] Comment on above: Performed By: #### L [id number] ####[facility] (BE[facility]ER)[address] [place] [place] [address] PLATELETS (10*3/UL) IN BLOOD AUTOMATED COUNT 135 10*3/uL Low 150-400 [facility] Comment on above: Performed By: #### L [id number] ####[facility] (BEAKER)[address] [place], [place] [address] RBC (Bld) [#/Vol] 2.93 10*6/uL Low 3.80-5.00 [facility] Comment on above: Performed By: #### L [id number] ####[facility] (BEAKER)[address] [place] [address] WBC (Bld) [#/Vol] 10.55 10*3/uL Normal 4.00-10.60 [facility] Comment on above: Performed By: #### L [id number] ####[facility] ([facility])[address] [place] [address] DSon 01-31-2024 DS Normal [facility] MAGNESIUMon 01-31-2024 Magnesium [Mass/Vol] 2.2 mg/dL Normal 1.9-2.7 [facility] Comment on above: Performed By: #### L [id number] ####[facility] ([facility])[address] [place] [address] NURSNOTEon 01-31-2024 NURSNOTE Normal [facility] NURSNOTE Normal [facility] Orders Onlyon 01-31-2024 Orders Only [id number] Sunday Maynard A 1945 F Date Provider Department Center 01/31/2024 [facility] [place] Count No family history on file Normal [facility] PHOSPHORUSon 01-31-2024 Magnesium [Mass/Vol] 3.3 mg/dL Normal 2.5-5.0 [facility] Comment on above: Performed By: #### L [id number] ####[facility] ([facility])[address] [place] [address] POCT GLUCOSE METER UNSOLICIT ED RESULTSon 01-31-2024 Glucose [Mass/Vol] 210 mg/dL High 70-105 [facility] Comment on above: Order Comment: Waive d Testing in the ED is performed under the ED CLIA certificate #[id number]. Result Comment: [email or web address] Performed By: #### L [id number] ####[facility] ([facility])[address] [place] [address] Glucose [Mass/Vol] 118 mg/dL High 70-105 [facility] Comment on above: Order Comment: Waive d Testing in the ED is performed under the ED CLIA certificate #[id number]. Result Comment: mary martinez Performed By: #### L [id number] ####[facility] [place] [address] BASIC METABOLIC PANELon 12-0 Anion gap [Moles/Vol] 7 mmol/L Normal 7-[address] [facility] Comment on above: Performed By: #### L [id number] ####[facility] ([facility])[address] [place] [address] Calcium [Mass/Vol] 8.0 mg/dL Low 8.6-10.3 [facility] Comment on above: Performed By: #### L [id number] ####[facility] ([facility])[address] [place] [address] Chloride [Moles/Vol] 107 mmol/L Normal 98-107 [facility] Comment on above: Performed By: #### L [id number] ####[facility] ([facility])[address] [place] [address] CO2 [Moles/Vol] 27 mmol/L Normal 21-31 [facility] Comment on above: Performed By: #### L [id number] ####[facility] ([facility])[address] [place] [address] Creatinine [Mass/Vol] 1.54 mg/dL High 0.60-1.[address] [facility] Comment on above: Performed By: #### L [id number] ####[facility] ([facility])[address] [place] [address] GLOMERULAR FILTRATION RATE ML/MIN/1.73 SQ M.PREDICTED 33.9 mL/min/1.73m*2 Low >60.0 [facility] Comment on above: Result Comment: The [facility]???s estimated glomerular filtration rate (eGFR) will no [...] of individuals. Performed By: #### L [id number] ####[facility] ([facility])[address] [place] [address] Glucose [Mass/Vol] 124 mg/dL High 70-100 [facility] Comment on above: Performed By: #### L [id number] ####[facility] ([facility])[address] [place] [address] Potassium [Moles/Vol] 4.4 mmol/L Normal 3.5-5.1 [facility] Comment on above: Performed By: #### L [id number] ####[facility] ([facility])[address] [place] [address] Sodium [Moles/Vol] 137 mmol/L Normal 136-145 [facility] Comment on above: Performed By: #### L [id number] ####[facility] ([facility])[address] [place] [address] Urea nitrogen [Mass/Vol] 25 mg/dL Normal 7-25 [facility] Comment on above: Performed By: #### L [id number] ####[facility] ([facility])[address] [place] [address] UREA NITROGEN/CREATININE (MASS RATIO) IN SER/PLAS 16.2 Normal [facility] Comment on above: Performed By: #### L [id number] ####[facility] ([facility])[address] [place] [address] CBC WITH AUTO DIFFERENTIALon 01-30-2024 Basophils (Bld) [#/Vol] 0.02 10*3/uL Normal 0.00-0.20 [facility] Comment on above: Performed By: #### L [id number] ####[facility] ([facility])[address] [place] [address] Basophils/100 WBC (Bld) 0.2 % Normal 0.0-1.0 [facility] Comment on above: Performed By: #### L [id number] ####[facility] ([facility])[address] [place] [address] Eosinophils (Bld) [#/Vol] 0.06 10*3/uL Normal 0.00-0.50 [facility] Comment on above: Performed By: #### L [id number] ####[facility] [place] [address] Eosinophils/100 WBC (Bld) 0.5 % Normal 0.0-6.0 [facility] Comment on above: Performed By: #### L [id number] ####[facility] [facility])[address] [place] [address] Erythrocyte distribution width (RBC) [Ratio] 16.7 % High 11.5-15.0 [facility] Comment on above: Performed By: #### L [id number] ####[facility] [place] [address] ERYTHROCYTE MEAN CORPUSCULAR HEMOGLOBIN CONCENTRATION (G/DL) BY AUTOMATED 30.5 g/dL Low 32.0-35.0 [facility] Comment on above: Performed By: #### L [id number] ####[facility] (BEAKER)[address] [place] [address] Hematocrit (Bld) [Volume fraction] 29.8 % Low 36.0-48.0 [facility] Comment on above: Performed By: #### L [id number] ####[facility] ([facility]ER)[address] [place] [address] Hemoglobin (Bld) [Mass/Vol] 9.1 g/dL Low 12.0-15.0 [facility] Comment on above: Performed By: #### L [id number] ####[facility] (BEAKER)[address] [place] [address] Immature granulocytes (Bld) [#/Vol] 0.07 10*3/uL Normal 0.00-0.20 [facility] Comment on above: Performed By: #### L [id number] ####[facility] ([facility])[address] [place] [address] Immature granulocytes/100 WBC (Bld) 0.5 % Normal 0.0-1.0 [facility] Comment on above: Performed By: #### L [id number] ####[facility] ([facility])[address] [address] Lymphocytes (Bld) [#/Vol] 1.15 10*3/uL Low 1.20-4.00 [facility] Comment on above: Performed By: #### L [id number] ####[facility] ([facility])[address] [place] [address] Lymphocytes/100 WBC (Bld) 8.6 % Low 20.0-45.0 [facility] Comment on above: Performed By: #### L [id number] ####[facility] ([facility])[address] [address] MCH (RBC) [Entitic mass] 28.4 pg Normal 27.0-33.0 [facility] Comment on above: Performed By: #### L [id number] ####[facility] ([facility])[address] [place] [address] MCV (RBC) [Entitic vol] 93.1 fL Normal 82.0-98.0 [facility] Comment on above: Performed By: #### L [id number] ####[facility] [address] Monocytes (Bld) [#/Vol] 0.80 10*3/uL Normal 0.10-1.00 [facility] Comment on above: Performed By: #### L [id number] ####[facility] [place] [address] Monocytes/100 WBC (Bld) 6.0 % Normal 5.0-12.0 [facility] Comment on above: Performed By: #### L [id number] ####[facility])[address] [place] [address] Neutrophils (Bld) [#/Vol] 11.20 10*3/uL High 1.60-7.60 [facility] Comment on above: Performed By: #### L [id number] ####[facility] ([facility] [place] [address] Neutrophils/100 WBC (Bld) 84.2 % High 40.0-72.0 [facility] Comment on above: Performed By: #### L [id number] ####[facility] ([facility])[address] [place] [address] NRBC (PER 100 WBCS) BY AUTOMATED COUNT 0.0 % Normal 0 [facility] Comment on above: Performed By: #### L [id number] ####[facility] ([facility])[address] [place] [address] PLATELETS (10*3/UL) IN BLOOD AUTOMATED COUNT 155 10*3/uL Normal 150-400 [facility] Comment on above: Performed By: #### L [id number] ####[facility] ([facility])[address] [place] [address] RBC (Bld) [#/Vol] 3.20 10*6/uL Low 3.80-5.00 [facility] Comment on above: Performed By: #### L [id number] ####[facility] ([facility])[address] [place] [address] WBC (Bld) [#/Vol] 13.30 10*3/uL High 4.00-10.60 [facility] Comment on above: Performed By: #### L [id number] ####[facility] ([facility] [place] [address] HPon 01-30-2024 HP Normal [facility] MAGNESIUMon 01-30-2024 Magnesium [Mass/Vol] 2.4 mg/dL Normal 1.9-2.7 [facility] Comment on above: Performed By: #### L [id number] ####[facility] ([facility])[address] [place] [address] PHOSPHORUSon 01-30-2024 Magnesium [Mass/Vol] 3.6 mg/dL Normal 2.5-5.0 [facility] Comment on above: Performed By: #### L [id number] ####[facility] ([facility])[address] [place] [address] POCT GLUCOSE METER UNSOLICIT ED RESULTSon 01-30-2024 Glucose [Mass/Vol] 271 mg/dL High 70-105 [facility] Comment on above: Order Comment: Waive d Testing in the ED is performed under the ED CLIA certificate #[id number]. Result Comment: mary [email or web address] Performed By: #### L [id number] ####[facility] ([facility])[address] [place] [address] Glucose [Mass/Vol] 130 mg/dL High 70-105 [facility] Comment on above: Order Comment: Waive d Testing in the ED is performed under the ED CLIA certificate #[id number]. Result Comment: [email or web address] Performed By: #### L [id number] ####[facility] ([facility])[address] [place] [address] Glucose [Mass/Vol] 166 mg/dL High 70-105 [facility] Comment on above: Order Comment: Waive d Testing in the ED is performed under the ED CLIA certificate #[id number]. Result Comment: [email or web address] Performed By: #### L [id number] ####[facility] ([facility])[address] [place] [address] Glucose [Mass/Vol] 151 mg/dL High 70-105 [facility] Comment on above: Order Comment: Waive d Testing in the ED is performed under the ED CLIA certificate #[id number]. Result Comment: darlene rivas Performed By: #### L [id number] ####[facility] ([facility])[address] [place] [address] Glucose [Mass/Vol] 134 mg/dL High 70-105 [facility] Comment on above: Order Comment: Waive d Testing in the ED is performed under the ED CLIA certificate #[id number]. Result Comment: darlene [email or web address] Performed By: #### L [id number] ####[facility] (BEAKER)[address] [place] [address] 30on 01-29-2024 30 The patient is Moderately Stable - Low risk of patient condition declining or worsening The patient's goals for the shift include Pain Control The clinical goals for the shift include VSS, pain control, mobility Normal [facility] 30 Normal [facility] ARTERIAL BLOOD GAS WITH CO-O XIMETRYon 01-29-2024 Base excess Calc (Bld) [Moles/Vol] 0.2 mmol/L Normal -2.0-3.0 [facility] Comment on above: Performed By: #### L [id number] ####[facility]PIR[facility] [id number] [place] [address] [place] CARBOXYHEMOGLOBIN/HEMO GLOBIN TOTAL % IN BLOOD 1.4 % Normal 0.0-3.0 [facility] Comment on above: Performed By: #### L [id number] ####[facility] [id number] [place] [address] [place] CO2 (Bld) [Partial pressure] 38 mm[Hg] Normal 35-48 [facility] Comment on above: Performed By: #### L [id number] ####[facility] [id number] [place] [address] [place] DEOXYGENATED HEMOGLOBIN IN BLOOD 0.4 % Low 1-5 [facility] Comment on above: Performed By: #### L [id number] ####[facility] RESPIRAT[facility] [id number] [place] [address] [place] HCO3 (Bld) [Moles/Vol] 24.6 mmol/L Normal 21.0-28.0 [facility] Comment on above: Performed By: #### L [id number] ####[facility] RESPIRATORY [id number] Hemoglobin (Bld) [Mass/Vol] 10.5 g/dL Low 11.7-17.4 [facility] Comment on above: Performed By: #### L [id number] ####[facility] RESPIRAT[facility] [id number] [place] [address] [place] LPM 2 Normal [facility] Comment on above: Performed By: #### L [id number] ####[facility] RESPIRATORY [id number] [place] [address] [place] METHEMOGLOBIN/100 IN BLOOD 0.7 % Normal 0.0-1.5 [facility] Comment on above: Performed By: #### L [id number] ####[facility] RESPIRATORY [id number] [place], [place] [address] Oxygen (Bld) [Partial pressure] 116 mm[Hg] High 83-100 [facility] Comment on above: Performed By: #### L [id number] ####[facility] RESPIRATORY [id number] [address] OXYGEN SATURATION (%) IN ARTERIAL BLOOD 99.6 % High 94.0-98.0 [facility] Comment on above: Performed By: #### L [id number] ####[facility] RESPIRATORY [id number] [place], [place] [address] OXYGENATED HEMOGLOBIN IN BLOOD 97.5 % High 90.0-95.0 [facility] Comment on above: Performed By: #### L [id number] ####[facility] RESPIRATORY [id number] [place] [address] [place] pH (Bld) 7.42 [pH] Normal 7.35-7.45 [facility] Comment on above: Performed By: #### L [id number] ####[facility] RESPIRATORY [id number] [place] [id number] [place] SOURCE OF OXYGEN Nasal cannula Normal [facility] Comment on above: Performed By: #### L [id number] ####[facility] RESPIRATORY [id number] [place] [id number] [place] ARTERIAL BLOOD GAS WITH IONI OligomerixD CALCIUMon 01-29-2024 Base excess Calc (Bld) [Moles/Vol] -0.6000 mmol/L Normal -2.0-3.0 [facility] Comment on above: Performed By: #### L [id number] ####[facility] RESPIRATORY [id number] [place] [address] [place] CALCIUM IONIZED (MMOL/L) IN BLOOD 1.19 mmol/L Normal 1.15-1.33 [facility] Comment on above: Performed By: #### L [id number] ####[facility] RESPIRATORY [id number] [place] [address] [place] CO2 (Bld) [Partial pressure] 46 mm[Hg] Normal 35-48 [facility] Comment on above: Performed By: #### L [id number] ####[facility] RESPIR[facility] [id number] [place] [address] [place] HCO3 (Bld) [Moles/Vol] 25.4 mmol/L Normal 21.0-28.0 [facility] Comment on above: Performed By: #### L [id number] ####[facility] RESPIRATORY [id number] [place] [address] [place] LPM 2 Normal [facility] Comment on above: Performed By: #### L [id number] ####[facility] RESPIRATORY [id number] [place] [address] [place] Oxygen (Bld) [Partial pressure] 97 mm[Hg] Normal 83-100 [facility] Comment on above: Performed By: #### L [id number] ####[facility] RESPIRATORY [id number] [place] [address] [place] OXYGEN SATURATION (%) IN ARTERIAL BLOOD 99.4 % High 94.0-98.0 [facility] Comment on above: Performed By: #### L [id number] ####[facility] RESPIRATORY [id number] [place] [address] [place] pH (Bld) 7.35 [pH] Normal 7.35-7.45 [facility] Comment on above: Performed By: #### L [id number] ####[facility] RESPIRATORY [id number] [place] [address] [place] SOURCE OF OXYGEN Nasal cannula Normal [facility] Comment on above: Performed By: #### L [id number] ####[facility] RESPIRATORY [id number] [place] [address] [place] BASIC METABOLIC PANELon 12-0 Anion gap [Moles/Vol] 11 mmol/L Normal 7-[address] [facility] Comment on above: Performed By: #### L [id number] ####[facility] (BEAKER)[address] [place] [address] Calcium [Mass/Vol] 8.0 mg/dL Low 8.6-10.3 [facility] Comment on above: Performed By: #### L [id number] ####[facility] (BEAKER)[address] [place] [address] Chloride [Moles/Vol] 105 mmol/L Normal 98-107 [facility] Comment on above: Performed By: #### L [id number] ####[facility] (BEAKER)[address] [place] [address] CO2 [Moles/Vol] 25 mmol/L Normal 21-31 [facility] Comment on above: Performed By: #### L [id number] ####[facility] (BEAKER)[address] [place] [address] Creatinine [Mass/Vol] 1.18 mg/dL Normal 0.60-1.[address] [facility] Comment on above: Performed By: #### L [id number] ####[facility] (BEAKER)[address] [place] [address] GLOMERULAR FILTRATION RATE ML/MIN/1.73 SQ M.PREDICTED 46.7 mL/min/1.73m*2 Low >60.0 [facility] Comment on above: Result Comment: The [facility]???s estimated glomerular filtration rate (eGFR) will no [...] of individuals. Performed By: #### L [id number] ####[facility] [place] [address] Glucose [Mass/Vol] 204 mg/dL High 70-100 [facility] Comment on above: Performed By: #### L [id number] ####[facility] ([facility] [place] [address] Potassium [Moles/Vol] 3.8 mmol/L Normal 3.5-5.[address] [facility] Comment on above: Performed By: #### L [id number] ####[facility] [place] [address] Sodium [Moles/Vol] 137 mmol/L Normal 136-145 [facility] Comment on above: Performed By: #### L [id number] ####[facility] (BEAKER)[address] [place] [address] Urea nitrogen [Mass/Vol] 21 mg/dL Normal 7-25 [facility] Comment on above: Performed By: #### L [id number] ####[facility] (BEAKER)[address] [place] [address] UREA NITROGEN/CREATININE (MASS RATIO) IN SER/PLAS 17.8 Normal [facility] Comment on above: Performed By: #### L [id number] ####[facility] (BEAKER)[address] [place] [address] CALCIUM, IONIZEDon 4 CALCIUM IONIZED (MMOL/L) IN BLOOD 1.14 mmol/L Low 1.15-1.33 [facility] Comment on above: Performed By: #### L [id number] ####[facility] RESPIRATORY [id number] [place] [address] [place] CALCIUM IONIZED (MMOL/L) IN BLOOD 1.19 mmol/L Normal 1.15-1.33 [facility] Comment on above: Performed By: #### C ALCIUM, IONIZED ####[facility] RESPIRATORY [id number] [place] [address] [place] CBCon 01-29-2024 Erythrocyte distribution width (RBC) [Ratio] 16.1 % High 11.5-15.0 [facility] Comment on above: Performed By: #### L [id number] ####[facility] (BEAKER)[address] [place] [address] ERYTHROCYTE MEAN CORPUSCULAR HEMOGLOBIN CONCENTRATION (G/DL) BY AUTOMATED 32.2 g/dL Normal 32.0-35.0 [facility] Comment on above: Performed By: #### L [id number] ####[facility] (BEAKER)[address] [place] [address] Hematocrit (Bld) [Volume fraction] 30.7 % Low 36.0-48.0 [facility] Comment on above: Performed By: #### L [id number] ####[facility] (BEAKER)[address] [place] [address] Hemoglobin (Bld) [Mass/Vol] 9.9 g/dL Low 12.0-15.0 [facility] Comment on above: Performed By: #### L [id number] ####[facility] (BEAKER)[address] [place] [address] MCH (RBC) [Entitic mass] 28.6 pg Normal 27.0-33.0 [facility] Comment on above: Performed By: #### L [id number] ####[facility] (BEAKER)[address] [place] [address] MCV (RBC) [Entitic vol] 88.7 fL Normal 82.0-98.0 [facility] Comment on above: Performed By: #### L [id number] ####[facility] (BEAKER)[address] [place] [address] PLATELETS (10*3/UL) IN BLOOD AUTOMATED COUNT 148 10*3/uL Low 150-400 [facility] Comment on above: Performed By: #### L [id number] ####[facility] (BEAKER)[address] [place] [address] RBC (Bld) [#/Vol] 3.46 10*6/uL Low 3.80-5.00 [facility] Comment on above: Performed By: #### L [id number] ####[facility] (BEAKER)[address] [place] [address] WBC (Bld) [#/Vol] 13.37 10*3/uL High 4.00-10.60 [facility] Comment on above: Performed By: #### L [id number] ####[facility] (BEAKER)[address] [place] [address] CBC WITH AUTO DIFFERENTIALon 01-29-2024 Basophils (Bld) [#/Vol] 0.02 10*3/uL Normal 0.00-0.20 [facility] Comment on above: Performed By: #### L [id number] ####[facility] (BEAKER)[address] [place] [address] Basophils/100 WBC (Bld) 0.2 % Normal 0.0-1.0 [facility] Comment on above: Performed By: #### L [id number] ####[facility] (BEAKER)[address] [place] [address] Eosinophils (Bld) [#/Vol] 0.00 10*3/uL Normal 0.00-0.50 [facility] Comment on above: Performed By: #### L [id number] ####[facility] (BEAKER)[address] [place] [address] Eosinophils/100 WBC (Bld) 0.0 % Normal 0.0-6.0 [facility] Comment on above: Performed By: #### L [id number] ####[facility] (BEAKER)[address] [place] [address] Erythrocyte distribution width (RBC) [Ratio] 16.1 % High 11.5-15.0 [facility] Comment on above: Performed By: #### L [id number] ####[facility] (BEAKER)[address] [place] [address] ERYTHROCYTE MEAN CORPUSCULAR HEMOGLOBIN CONCENTRATION (G/DL) BY AUTOMATED 32.0 g/dL Normal 32.0-35.0 [facility] Comment on above: Performed By: #### L [id number] ####[facility] (BEAKER)[address] [place] [address] Hematocrit (Bld) [Volume fraction] 32.5 % Low 36.0-48.0 [facility] Comment on above: Performed By: #### L [id number] ####[facility] (BEAKER)[address] [place] [address] Hemoglobin (Bld) [Mass/Vol] 10.4 g/dL Low 12.0-15.0 [facility] Comment on above: Performed By: #### L [id number] ####[facility] (BEAKER)[address] [place] [address] Immature granulocytes (Bld) [#/Vol] 0.05 10*3/uL Normal 0.00-0.20 [facility] Comment on above: Performed By: #### L [id number] ####[facility] (BEAKER)[address] [place] [address] Immature granulocytes/100 WBC (Bld) 0.4 % Normal 0.0-1.0 [facility] Comment on above: Performed By: #### L [id number] ####[facility] (BEAKER)[address] [place] [address] Lymphocytes (Bld) [#/Vol] 0.98 10*3/uL Low 1.20-4.00 [facility] Comment on above: Performed By: #### L [id number] ####[facility] (BEAKER)[address] [place] [address] Lymphocytes/100 WBC (Bld) 7.8 % Low 20.0-45.0 [facility] Comment on above: Performed By: #### L [id number] ####[facility] (BEAKER)[address] [place] [address] MCH (RBC) [Entitic mass] 28.3 pg Normal 27.0-33.0 [facility] Comment on above: Performed By: #### L [id number] ####[facility] (BEAKER)[address] [place] [address] MCV (RBC) [Entitic vol] 88.3 fL Normal 82.0-98.0 [facility] Comment on above: Performed By: #### L [id number] ####[facility] [place] [address] Monocytes (Bld) [#/Vol] 0.54 10*3/uL Normal 0.10-1.00 [facility] Comment on above: Performed By: #### L [id number] ####[facility] (BEAKER)[address] [place] [address] Monocytes/100 WBC (Bld) 4.3 % Low 5.0-12.0 [facility] Comment on above: Performed By: #### L [id number] ####[facility] (BEAKER)[address] [place] [address] Neutrophils (Bld) [#/Vol] 11.04 10*3/uL High 1.60-7.60 [facility] Comment on above: Performed By: #### L [id number] ####[facility] (BEAKER)[address] [place] [address] Neutrophils/100 WBC (Bld) 87.3 % High 40.0-72.0 [facility] Comment on above: Performed By: #### L [id number] ####[facility] (BEAKER)[address] [place] [address] NRBC (PER 100 WBCS) BY AUTOMATED COUNT 0.0 % Normal 0 [facility] Comment on above: Performed By: #### L [id number] ####[facility] [place] [address] PLATELETS (10*3/UL) IN BLOOD AUTOMATED COUNT 160 10*3/uL Normal 150-400 [facility] Comment on above: Performed By: #### L [id number] ####[facility] (BEAKER)[address] [place] [address] RBC (Bld) [#/Vol] 3.68 10*6/uL Low 3.80-5.00 [facility] Comment on above: Performed By: #### L [id number] ####[facility] (BEAKER)[address] [place] [place] [address] WBC (Bld) [#/Vol] 12.63 10*3/uL High 4.00-10.60 [facility] Comment on above: Performed By: #### L [id number] ####[facility] (BEAKER)[address] [place] [address] Basophils (Bld) [#/Vol] 0.01 10*3/uL Normal 0.00-0.20 [facility] Comment on above: Performed By: #### L [id number] ####[facility] (BEAKER)[address] [place] [address] Basophils/100 WBC (Bld) 0.1 % Normal 0.0-1.0 [facility] Comment on above: Performed By: #### L [id number] ####[facility] (BEAKER)[address] [place] [address] Eosinophils (Bld) [#/Vol] 0.00 10*3/uL Normal 0.00-0.50 [facility] Comment on above: Performed By: #### L [id number] ####[facility] (BEAKER)[address] [place] [address] Eosinophils/100 WBC (Bld) 0.0 % Normal 0.0-6.0 [facility] Comment on above: Performed By: #### L [id number] ####[facility] (BEAKER)[address] [place] [address] Erythrocyte distribution width (RBC) [Ratio] 16.4 % High 11.5-15.0 [facility] Comment on above: Performed By: #### L [id number] ####[facility] (BEAKER)[address] [place] [address] ERYTHROCYTE MEAN CORPUSCULAR HEMOGLOBIN CONCENTRATION (G/DL) BY AUTOMATED 31.6 g/dL Low 32.0-35.0 [facility] Comment on above: Performed By: #### L [id number] ####[facility] (BEAKER)[address] [place] [address] Hematocrit (Bld) [Volume fraction] 31.0 % Low 36.0-48.0 [facility] Comment on above: Performed By: #### L [id number] ####[facility] (BEAKER)[address] [place] [address] Hemoglobin (Bld) [Mass/Vol] 9.8 g/dL Low 12.0-15.0 [facility] Comment on above: Performed By: #### L [id number] ####[facility] (BEAKER)[address] [place] [address] Immature granulocytes (Bld) [#/Vol] 0.05 10*3/uL Normal 0.00-0.20 [facility] Comment on above: Performed By: #### L [id number] ####[facility] (BEAKER)[address] [place] [address] Immature granulocytes/100 WBC (Bld) 0.5 % Normal 0.0-1.0 [facility] Comment on above: Performed By: #### L [id number] ####[facility] (BEAKER)[address] [place] [address] Lymphocytes (Bld) [#/Vol] 0.58 10*3/uL Low 1.20-4.00 [facility] Comment on above: Performed By: #### L [id number] ####[facility] (BEAKER)[address] [place] [address] Lymphocytes/100 WBC (Bld) 6.3 % Low 20.0-45.0 [facility] Comment on above: Performed By: #### L [id number] ####[facility] ([facility] [place] [address] MCH (RBC) [Entitic mass] 28.2 pg Normal 27.0-33.0 [facility] Comment on above: Performed By: #### L [id number] ####[facility] ([facility])[address] [place] [address] MCV (RBC) [Entitic vol] 89.3 fL Normal 82.0-98.0 [facility] Comment on above: Performed By: #### L [id number] ####[facility] (BEAKER)[address] [place] [address] Monocytes (Bld) [#/Vol] 0.21 10*3/uL Normal 0.10-1.00 [facility] Comment on above: Performed By: #### L [id number] ####[facility] (BEAKER)[address] [place] [address] Monocytes/100 WBC (Bld) 2.3 % Low 5.0-12.0 [facility] Comment on above: Performed By: #### L [id number] ####[facility] (BEAKER)[address] [place] [address] Neutrophils (Bld) [#/Vol] 8.38 10*3/uL High 1.60-7.60 [facility] Comment on above: Performed By: #### L [id number] ####[facility] (BEAKER)[address] [place] [address] Neutrophils/100 WBC (Bld) 90.8 % High 40.0-72.0 [facility] Comment on above: Performed By: #### L [id number] ####[facility] (BEAKER)[address] [place] [address] NRBC (PER 100 WBCS) BY AUTOMATED COUNT 0.0 % Normal 0 [facility] Comment on above: Performed By: #### L [id number] ####[facility] ([facility] [place] [address] PLATELETS (10*3/UL) IN BLOOD AUTOMATED COUNT 143 10*3/uL Low 150-400 [facility] Comment on above: Performed By: #### L [id number] ####[facility] ([facility])[address] [place] [address] RBC (Bld) [#/Vol] 3.47 10*6/uL Low 3.80-5.00 [facility] Comment on above: Performed By: #### L [id number] ####[facility] ([facility])[address] [place] [address] WBC (Bld) [#/Vol] 9.23 10*3/uL Normal 4.00-10.60 [facility] Comment on above: Performed By: #### L [id number] ####[facility] ([facility])[address] [place] [address] COMPREHENSIVE METABOLIC PANE Bao 01-29-2024 Albumin [Mass/Vol] 3.1 g/dL Low 3.5-5.7 [facility] Comment on above: Performed By: #### L [id number] ####[facility] ([facility])[address] [place] [address] ALP [Catalytic activity/Vol] 60 U/L Normal 34-104 [facility] Comment on above: Performed By: #### L [id number] ####[facility] ([facility] [place] [address] ALT [Catalytic activity/Vol] 4 U/L Low 7-52 [facility] Comment on above: Performed By: #### L [id number] ####[facility] ([facility] [place] [address] Anion gap [Moles/Vol] 9 mmol/L Normal 7-[address] [facility] Comment on above: Performed By: #### L [id number] ####[facility] (BEAKER)[address] [place] [address] AST [Catalytic activity/Vol] 11 U/L Low 13-39 [facility] Comment on above: Performed By: #### L [id number] ####[facility] (BEAKER)[address] [place] [address] Bilirubin [Mass/Vol] 0.4 mg/dL Normal 0.3-1.0 [facility] Comment on above: Performed By: #### L [id number] ####[facility] (BEAKER)[address] [place] [address] Calcium [Mass/Vol] 8.0 mg/dL Low 8.6-10.3 [facility] Comment on above: Performed By: #### L [id number] ####[facility] ([facility] [place] [address] Chloride [Moles/Vol] 108 mmol/L High 98-107 [facility] Comment on above: Performed By: #### L [id number] ####[facility] (BEAKER)[address] [place] [address] CO2 [Moles/Vol] 25 mmol/L Normal 21-31 [facility] Comment on above: Performed By: #### L [id number] ####[facility] (BEAKER)[address] [place] [address] Creatinine [Mass/Vol] 1.06 mg/dL Normal 0.60-1.[address] [facility] Comment on above: Performed By: #### L [id number] ####[facility] ([facility] [place] [address] GLOMERULAR FILTRATION RATE ML/MIN/1.73 SQ M.PREDICTED 53.1 mL/min/1.73m*2 Low >60.0 [facility] Comment on above: Result Comment: [facility]???s estimated glomerular filtration rate (eGFR) will no [...] group of individuals. Performed By: #### L [id number] ####[facility] ([facility])[address] [place] [address] Glucose [Mass/Vol] 133 mg/dL High 70-100 [facility] Comment on above: Performed By: #### L [id number] ####[facility] ([facility])[address] [place] [address] Potassium [Moles/Vol] 4.2 mmol/L Normal 3.5-5.[address] [facility] Comment on above: Performed By: #### L [id number] ####[facility] ([facility])[address] [place] [address] Protein [Mass/Vol] 5.2 g/dL Low 6.0-8.3 [facility] Comment on above: Performed By: #### L [id number] ####[facility] ([facility])[address] [place] [address] Sodium [Moles/Vol] 138 mmol/L Normal 136-145 [facility] Comment on above: Performed By: #### L [id number] ####[facility] ([facility] [place] [address] Urea nitrogen [Mass/Vol] 19 mg/dL Normal 7-25 [facility] Comment on above: Performed By: #### L [id number] ####[facility] ([facility])[address] [place] [address] UREA NITROGEN/CREATININE (MASS RATIO) IN SER/PLAS 17.9 Normal [facility] Comment on above: Performed By: #### L [id number] ####[facility] ([facility] [place] [address] Albumin [Mass/Vol] 3.3 g/dL Low 3.5-5.7 [facility] Comment on above: Performed By: #### L [id number] ####[facility] ([facility] [place] [address] ALP [Catalytic activity/Vol] 67 U/L Normal 34-104 [facility] Comment on above: Performed By: #### L [id number] ####[facility] ([facility])[address] [place] [address] ALT [Catalytic activity/Vol] 7 U/L Normal 7-52 [facility] Comment on above: Performed By: #### L [id number] ####[facility] ([facility])[address] [place] [address] Anion gap [Moles/Vol] 11 mmol/L Normal 7-[address] [facility] Comment on above: Performed By: #### L [id number] ####[facility] ([facility])[address] [place] [address] AST [Catalytic activity/Vol] 14 U/L Normal 13-39 [facility] Comment on above: Performed By: #### L [id number] ####[facility] ([facility])[address] [place] [address] Bilirubin [Mass/Vol] 0.4 mg/dL Normal 0.3-1.0 [facility] Comment on above: Performed By: #### L [id number] ####[facility] ([facility] [place] [address] Calcium [Mass/Vol] 8.4 mg/dL Low 8.6-10.3 [facility] Comment on above: Performed By: #### L [id number] ####[facility] (BEAKER)[address] [place] [address] Chloride [Moles/Vol] 108 mmol/L High 98-107 [facility] Comment on above: Performed By: #### L [id number] ####[facility] (BEAKER)[address] [place] [address] CO2 [Moles/Vol] 25 mmol/L Normal 21-31 [facility] Comment on above: Performed By: #### L [id number] ####[facility] ([facility])[address] [place] [address] Creatinine [Mass/Vol] 1.24 mg/dL High 0.60-1.[address] [facility] Comment on above: Performed By: #### L [id number] ####[facility] ([facility])[address] [address] GLOMERULAR FILTRATION RATE ML/MIN/1.73 SQ M.PREDICTED 44.0 mL/min/1.73m*2 Low >60.0 [facility] Comment on above: Result Comment: [facility]???s estimated glomerular filtration rate (eGFR) will no [...] group of individuals. Performed By: #### L [id number] ####[facility] ([facility])[address] [place] [address] Glucose [Mass/Vol] 146 mg/dL High 70-100 [facility] Comment on above: Performed By: #### L [id number] ####[facility] ([facility])[address] [facility] [address] Potassium [Moles/Vol] 4.1 mmol/L Normal 3.5-5.[address] [facility] Comment on above: Performed By: #### L [id number] ####[facility] ([facility])[address] [facility] [address] Protein [Mass/Vol] 5.7 g/dL Low 6.0-8.3 [facility] Comment on above: Performed By: #### L [id number] ####[facility] ([facility] [place] [address] Sodium [Moles/Vol] 140 mmol/L Normal 136-145 [facility] Comment on above: Performed By: #### L [id number] ####[facility] ([facility])[address] [place] [address] Urea nitrogen [Mass/Vol] 21 mg/dL Normal 7-25 [facility] Comment on above: Performed By: #### L [id number] ####[facility] ([facility])[address] [place] [address] UREA NITROGEN/CREATININE (MASS RATIO) IN SER/PLAS 16.9 Normal [facility] Comment on above: Performed By: #### L [id number] ####[facility] ([facility])[address] [place] [address] CTA ABDOMEN W IV CONTRASTon 01-29-2024 CTA ABDOMEN W IV CONTRAST Invalid Interpretation Code [facility] CTA CHEST W IV CONTRASTon CTA CHEST W IV CONTRAST Normal [facility] LACTIC ACID WITH 4 HOUR REFL EXon 01-29-2024 LACTATE (MMOL/L) IN SER/PLAS 0.9 mmol/L Normal 0.5-2.2 [facility] Comment on above: Performed By: #### L [id number] ####[facility] ([facility])[address] [place] [address] LACTATE (MMOL/L) IN SER/PLAS 1.6 mmol/L Normal 0.5-2.2 [facility] Comment on above: Performed By: #### L [id number] ####[facility] ([facility])[address] [place] [address] LIPASEon 01-29-2024 LIPASE (U/L) IN SER/PLAS 16 U/L Normal 11-82 [facility] Comment on above: Performed By: #### L [id number] ####[facility] ([facility])[address] [place] [address] MAGNESIUMon 01-29-2024 Magnesium [Mass/Vol] 2.4 mg/dL Normal 1.9-2.7 [facility] Comment on above: Performed By: #### L [id number] ####[facility] ([facility])[address] [place] [address] Magnesium [Mass/Vol] 2.5 mg/dL Normal 1.9-2.7 [facility] Comment on above: Performed By: #### L [id number] ####[facility] ([facility])[address] [place] [address] Magnesium [Mass/Vol] 2.7 mg/dL Normal 1.9-2.7 [facility] Comment on above: Performed By: #### L [id number] ####[facility] ([facility])[address] [place] [address] PHOSPHORUSon 01-29-2024 Magnesium [Mass/Vol] 3.1 mg/dL Normal 2.5-5.0 [facility] Comment on above: Performed By: #### L [id number] ####[facility] ([facility])[address] [place] [address] Magnesium [Mass/Vol] 3.3 mg/dL Normal 2.5-5.0 [facility] Comment on above: Performed By: #### L [id number] ####[facility] ([facility])[address] [place] [address] Magnesium [Mass/Vol] 4.2 mg/dL Normal 2.5-5.0 [facility] Comment on above: Performed By: #### L [id number] ####[facility] ([facility])[address] [place] [address] POCT GLUCOSE METER UNSOLICIT ED RESULTSon 01-29-2024 Glucose [Mass/Vol] 127 mg/dL High 70-105 [facility] Comment on above: Order Comment: Waive d Testing in the ED is performed under the ED CLIA certificate #[id number]. Result Comment: [email or web address] Performed By: #### L [id number] ####[facility] ([facility] [place] [address] Glucose [Mass/Vol] 157 mg/dL High 70-105 [facility] Comment on above: Order Comment: Waive d Testing in the ED is performed under the ED CLIA certificate #[id number]. Result Comment: [email or web address] Performed By: #### L [id number] ####[facility] (BEAKER)[address] [place] [address] Glucose [Mass/Vol] 177 mg/dL High 70-105 [facility] Comment on above: Order Comment: Waive d Testing in the ED is performed under the ED CLIA certificate #[id number]. Result Comment: [email or web address] Performed By: #### L [id number] ####[facility] ([employer])[address] [place] [address] Glucose [Mass/Vol] 192 mg/dL High 70-105 [facility] Comment on above: Order Comment: Waive d Testing in the ED is performed under the ED CLIA certificate #[id number]. Result Comment: [email or web address] Performed By: #### L [id number] ####[facility] ([employer])[address] [place] [address] POTASSIUM, WHOLE BLOODon Potassium [Moles/Vol] 4.0 mmol/L Normal 3.5-5.[address] [facility] Comment on above: Performed By: #### P OTASSIUM, WHOLE BLOOD ####[facility] [id number] [place] [address] [place] SODIUM, WHOLE BLOODon 2023 SODIUM, WHOLE BLOOD 136 Normal 136-145 [facility] Comment on above: Performed By: #### S ODIUM, WHOLE BLOOD ####[facility] [id number] [place] [address] [place] TROPONIN Ion 01-29-2024 Troponin I.cardiac [Mass/Vol] 0.02 ng/mL Normal 0.00-0.04 [facility] Comment on above: Performed By: #### L [id number] ####[facility] (BEAKER)[address] [facility] [address] Troponin I.cardiac [Mass/Vol] 0.07 ng/mL High 0.00-0.04 [facility] Comment on above: Performed By: #### L [id number] ####[facility] (BEAKER)[address] [facility] [address] Troponin I.cardiac [Mass/Vol] 0.03 ng/mL Normal 0.00-0.04 [facility] Comment on above: Performed By: #### L [id number] ####[facility] ([facility] [place] [address] 30on 01-28-2024 30 Normal [facility] 30 Normal [facility] ANESon 01-28-2024 ANES Normal [facility] ANES Normal [facility] ARTERIAL BLOOD GAS WITH CO-O XIMETRYon 01-28-2024 Base excess Calc (Bld) [Moles/Vol] -2.0000 mmol/L Normal -2.0-3.0 [facility] Comment on above: Performed By: #### L [id number] ####[facility] [id number] [place] [address] [place] CARBOXYHEMOGLOBIN/HEMO GLOBIN TOTAL % IN BLOOD 1.9 % Normal 0.0-3.0 [facility] Comment on above: Performed By: #### L [id number] ####[facility] [id number] [place] [address] [place] CO2 (Bld) [Partial pressure] 52 mm[Hg] High 35-48 [facility] Comment on above: Performed By: #### L [id number] ####[facility] [id number] [place] [address] [place] DEOXYGENATED HEMOGLOBIN IN BLOOD 0.9 % Low 1-5 [facility] Comment on above: Performed By: #### L [id number] ####[facility] [id number] [place] [address] [place] HCO3 (Bld) [Moles/Vol] 25.0 mmol/L Normal 21.0-28.0 [facility] Comment on above: Performed By: #### L [id number] ####[facility] [id number] [place] [address] [place] Hemoglobin (Bld) [Mass/Vol] 11.1 g/dL Low 11.7-17.4 [facility] Comment on above: Performed By: #### L [id number] ####[facility] [id number] [place] [address] [place] LPM 3 Normal [facility] Comment on above: Performed By: #### L [id number] ####[facility] [id number] [place] [address] [place] METHEMOGLOBIN/100 IN BLOOD 0.9 % Normal 0.0-1.5 [facility] Comment on above: Performed By: #### L [id number] ####[facility] [id number] [place] [address] [place] Oxygen (Bld) [Partial pressure] 103 mm[Hg] High 83-100 [facility] Comment on above: Performed By: #### L [id number] ####[facility] [id number] [place] [address] [place] OXYGEN SATURATION (%) IN ARTERIAL BLOOD 99.1 % High 94.0-98.0 [facility] Comment on above: Performed By: #### L [id number] ####[facility] [id number] [place] [address] [place] OXYGENATED HEMOGLOBIN IN BLOOD 96.3 % High 90.0-95.0 [facility] Comment on above: Performed By: #### L [id number] ####[facility] [id number] [place] [address] [place] pH (Bld) 7.29 [pH] Low 7.35-7.45 [facility] Comment on above: Performed By: #### L [id number] ####[facility] [id number] [place] [address] [place] SOURCE OF OXYGEN Nasal cannula Normal [facility] Comment on above: Performed By: #### L [id number] ####[facility] [id number] [place] [address] [place] B-TYPE NATRIURETIC PEPTIDEon 01-28-2024 Natriuretic peptide B (Bld) [Mass/Vol] 869 pg/mL High 0-100 [facility] Comment on above: Performed By: #### L [id number] ####[facility] [place] [address] BASIC METABOLIC PANELon Anion gap [Moles/Vol] 11 mmol/L Normal 7-[address] [facility] Comment on above: Performed By: #### L [id number] ####[facility] ([facility])[address] [place] [address] Calcium [Mass/Vol] 8.2 mg/dL Low 8.6-10.3 [facility] Comment on above: Performed By: #### L [id number] ####[facility] ([facility] [place] [address] Chloride [Moles/Vol] 106 mmol/L Normal 98-107 [facility] Comment on above: Performed By: #### L [id number] ####[facility] ([facility] [place] [address] CO2 [Moles/Vol] 26 mmol/L Normal 21-31 [facility] Comment on above: Performed By: #### L [id number] ####[facility] ([facility] [place] [address] Creatinine [Mass/Vol] 1.17 mg/dL Normal 0.60-1.[address] [facility] Comment on above: Performed By: #### L [id number] ####[facility] ([facility])[address] [place] [address] GLOMERULAR FILTRATION RATE ML/MIN/1.73 SQ M.PREDICTED 47.2 mL/min/1.73m*2 Low >60.0 [facility] Comment on above: Result Comment: [facility]???s estimated glomerular filtration rate (eGFR) will no [...] of individuals. Performed By: #### L [id number] ####[facility] (BEAKER)[address] [place] [address] Glucose [Mass/Vol] 161 mg/dL High 70-100 [facility] Comment on above: Performed By: #### L [id number] ####[facility] (BEAKER)[address] [place] [address] Potassium [Moles/Vol] 4.1 mmol/L Normal 3.5-5.[address] [facility] Comment on above: Performed By: #### L [id number] ####[facility] (BEAKER)[address] [place] [address] Sodium [Moles/Vol] 139 mmol/L Normal 136-145 [facility] Comment on above: Performed By: #### L [id number] ####[facility] (BEAKER)[address] [place] [address] Urea nitrogen [Mass/Vol] 20 mg/dL Normal 7-25 [facility] Comment on above: Performed By: #### L [id number] ####[facility] (BEAKER)[address] [place] [address] UREA NITROGEN/CREATININE (MASS RATIO) IN SER/PLAS 17.1 Normal [facility] Comment on above: Performed By: #### L [id number] ####[facility] (BEAKER)[address] [place] [address] Anion gap [Moles/Vol] 8 mmol/L Normal 7-20 [facility] Comment on above: Performed By: #### L [id number] ####[facility] (BEAKER)[address] [place] [address] Calcium [Mass/Vol] 8.8 mg/dL Normal 8.6-10.3 [facility] Comment on above: Performed By: #### L [id number] ####[facility] (BEAKER)[address] [place] [address] Chloride [Moles/Vol] 105 mmol/L Normal 98-107 [facility] Comment on above: Performed By: #### L [id number] ####[facility] (BEAKER)[address] [place] [address] CO2 [Moles/Vol] 29 mmol/L Normal 21-31 [facility] Comment on above: Performed By: #### L [id number] ####[facility] (BEAKER)[address] [place] [address] Creatinine [Mass/Vol] 1.19 mg/dL Normal 0.60-1.[address] [facility] Comment on above: Performed By: #### L [id number] ####[facility] (BEAKER)[address] [place] [address] GLOMERULAR FILTRATION RATE ML/MIN/1.73 SQ M.PREDICTED 46.2 mL/min/1.73m*2 Low >60.0 [facility] Comment on above: Result Comment: [facility]???s estimated glomerular filtration rate (eGFR) will no [...] of individuals. Performed By: #### L [id number] ####[facility] (BEAKER)[address] [place] [address] Glucose [Mass/Vol] 97 mg/dL Normal 70-100 [facility] Comment on above: Performed By: #### L [id number] ####[facility] ([facility])[address] [place] [address] Potassium [Moles/Vol] 3.7 mmol/L Normal 3.5-5.1 [facility] Comment on above: Performed By: #### L [id number] ####[facility] ([facility])[address] [place] [address] Sodium [Moles/Vol] 138 mmol/L Normal 136-145 [facility] Comment on above: Performed By: #### L [id number] ####[facility] ([facility])[address] [place] [address] Urea nitrogen [Mass/Vol] 22 mg/dL Normal 7-25 [facility] Comment on above: Performed By: #### L [id number] ####[facility] ([facility])[address] [place] [address] UREA NITROGEN/CREATININE (MASS RATIO) IN SER/PLAS 18.5 Normal [facility] Comment on above: Performed By: #### L [id number] ####[facility] ([facility])[address] [place] [address] CALCIUM, IONIZEDon CALCIUM IONIZED (MMOL/L) IN BLOOD 1.17 mmol/L Normal 1.15-1.33 [facility] Comment on above: Performed By: #### C ALCIUM, IONIZED ####[facility] RESPIRATORY [id number] [place] [address] [place] CBC WITH AUTO DIFFERENTIALon 01-28-2024 Basophils (Bld) [#/Vol] 0.02 10*3/uL Normal 0.00-0.20 [facility] Comment on above: Performed By: #### L [id number] ####[facility] (BEAKER)[address] [place] [address] Basophils/100 WBC (Bld) 0.2 % Normal 0.0-1.0 [facility] Comment on above: Performed By: #### L [id number] ####[facility] (BEAKER)[address] [place] [address] Eosinophils (Bld) [#/Vol] 0.02 10*3/uL Normal 0.00-0.50 [facility] Comment on above: Performed By: #### L [id number] ####[facility] (BEAKER)[address] [place] [address] Eosinophils/100 WBC (Bld) 0.2 % Normal 0.0-6.0 [facility] Comment on above: Performed By: #### L [id number] ####[facility] (BEAKER)[address] [place] [address] Erythrocyte distribution width (RBC) [Ratio] 16.4 % High 11.5-15.0 [facility] Comment on above: Performed By: #### L [id number] ####[facility] (BEAKER)[address] [place] [address] ERYTHROCYTE MEAN CORPUSCULAR HEMOGLOBIN CONCENTRATION (G/DL) BY AUTOMATED 31.3 g/dL Low 32.0-35.0 [facility] Comment on above: Performed By: #### L [id number] ####[facility] (BEAKER)[address] [place] [address] Hematocrit (Bld) [Volume fraction] 34.2 % Low 36.0-48.0 [facility] Comment on above: Performed By: #### L [id number] ####[facility] (BEAKER)[address] [place] [address] Hemoglobin (Bld) [Mass/Vol] 10.7 g/dL Low 12.0-15.0 [facility] Comment on above: Performed By: #### L [id number] ####[facility] (BEAKER)[address] [place] [address] Immature granulocytes (Bld) [#/Vol] 0.09 10*3/uL Normal 0.00-0.20 [facility] Comment on above: Performed By: #### L [id number] ####[facility] (BEAKER)[address] [place] [address] Immature granulocytes/100 WBC (Bld) 0.9 % Normal 0.0-1.0 [facility] Comment on above: Performed By: #### L [id number] ####[facility] (BEAKER)[address] [place] [address] Lymphocytes (Bld) [#/Vol] 1.01 10*3/uL Low 1.20-4.00 [facility] Comment on above: Performed By: #### L [id number] ####[facility] (BEAKER)[address] [place] [address] Lymphocytes/100 WBC (Bld) 9.6 % Low 20.0-45.0 [facility] Comment on above: Performed By: #### L [id number] ####[facility] (BEAKER)[address] [place] [address] MCH (RBC) [Entitic mass] 28.0 pg Normal 27.0-33.0 [facility] Comment on above: Performed By: #### L [id number] ####[facility] (BEAKER)[address] [place] [address] MCV (RBC) [Entitic vol] 89.5 fL Normal 82.0-98.0 [facility] Comment on above: Performed By: #### L [id number] ####[facility] (BEAKER)[address] [place] [address] Monocytes (Bld) [#/Vol] 0.18 10*3/uL Normal 0.10-1.00 [facility] Comment on above: Performed By: #### L [id number] ####[facility] (BEAKER)[address] [place] [address] Monocytes/100 WBC (Bld) 1.7 % Low 5.0-12.0 [facility] Comment on above: Performed By: #### L [id number] ####[facility] (BEAKER)[address] [place] [address] Neutrophils (Bld) [#/Vol] 9.15 10*3/uL High 1.60-7.60 [facility] Comment on above: Performed By: #### L [id number] ####[facility] [place] [address] Neutrophils/100 WBC (Bld) 87.4 % High 40.0-72.0 [facility] Comment on above: Performed By: #### L [id number] ####[facility] [place] [address] NRBC (PER 100 WBCS) BY AUTOMATED COUNT 0.0 % Normal 0 [facility] Comment on above: Performed By: #### L [id number] ####[facility] [place] [address] PLATELETS (10*3/UL) IN BLOOD AUTOMATED COUNT 154 10*3/uL Normal 150-400 [facility] Comment on above: Performed By: #### L [id number] ####[facility] [place] [address] RBC (Bld) [#/Vol] 3.82 10*6/uL Normal 3.80-5.00 [facility] Comment on above: Performed By: #### L [id number] ####[facility] (BEAKER)[address] [place] [address] WBC (Bld) [#/Vol] 10.47 10*3/uL Normal 4.00-10.60 [facility] Comment on above: Performed By: #### L [id number] ####[facility] (BEAKER)[address] [place] [address] Basophils (Bld) [#/Vol] 0.04 10*3/uL Normal 0.00-0.20 [facility] Comment on above: Performed By: #### L [id number] ####[facility] (BEAKER)[address] [place] [address] Basophils/100 WBC (Bld) 0.5 % Normal 0.0-1.0 [facility] Comment on above: Performed By: #### L [id number] ####[facility] [place] [address] Eosinophils (Bld) [#/Vol] 0.21 10*3/uL Normal 0.00-0.50 [facility] Comment on above: Performed By: #### L [id number] ####[facility] [place] [address] Eosinophils/100 WBC (Bld) 2.8 % Normal 0.0-6.0 [facility] Comment on above: Performed By: #### L [id number] ####[facility] ([facility])[address] [place] [address] Erythrocyte distribution width (RBC) [Ratio] 16.3 % High 11.5-15.0 [facility] Comment on above: Performed By: #### L [id number] ####[facility] ([facility])[address] [place] [address] ERYTHROCYTE MEAN CORPUSCULAR HEMOGLOBIN CONCENTRATION (G/DL) BY AUTOMATED 31.6 g/dL Low 32.0-35.0 [facility] Comment on above: Performed By: #### L [id number] ####[facility] [place] [address] Hematocrit (Bld) [Volume fraction] 34.5 % Low 36.0-48.0 [facility] Comment on above: Performed By: #### L [id number] ####[facility] ([facility] [place] [address] Hemoglobin (Bld) [Mass/Vol] 10.9 g/dL Low 12.0-15.0 [facility] Comment on above: Performed By: #### L [id number] ####[facility] (BEAKER)[address] [place] [address] Immature granulocytes (Bld) [#/Vol] 0.04 10*3/uL Normal 0.00-0.20 [facility] Comment on above: Performed By: #### L [id number] ####[facility] (BEAKER)[address] [place] [address] Immature granulocytes/100 WBC (Bld) 0.5 % Normal 0.0-1.0 [facility] Comment on above: Performed By: #### L [id number] ####[facility] (BEAKER)[address] [place] [address] Lymphocytes (Bld) [#/Vol] 1.83 10*3/uL Normal 1.20-4.00 [facility] Comment on above: Performed By: #### L [id number] ####[facility] ([facility])[address] [place] [address] Lymphocytes/100 WBC (Bld) 24.8 % Normal 20.0-45.0 [facility] Comment on above: Performed By: #### L [id number] ####[facility] ([facility] [place] [address] MCH (RBC) [Entitic mass] 28.0 pg Normal 27.0-33.0 [facility] Comment on above: Performed By: #### L [id number] ####[facility] ([facility] [place] [address] MCV (RBC) [Entitic vol] 88.7 fL Normal 82.0-98.0 [facility] Comment on above: Performed By: #### L [id number] ####[facility] (BEAKER)[address] [address] Monocytes (Bld) [#/Vol] 0.70 10*3/uL Normal 0.10-1.00 [facility] Comment on above: Performed By: #### L [id number] ####[facility] (BEAKER)[address] [place] [address] Monocytes/100 WBC (Bld) 9.5 % Normal 5.0-12.0 [facility] Comment on above: Performed By: #### L [id number] ####[facility] [place] [address] Neutrophils (Bld) [#/Vol] 4.57 10*3/uL Normal 1.60-7.60 [facility] Comment on above: Performed By: #### L [id number] ####[facility] ([facility] [place] [address] Neutrophils/100 WBC (Bld) 61.9 % Normal 40.0-72.0 [facility] Comment on above: Performed By: #### L [id number] ####[facility] ([facility])[address] [place] [address] NRBC (PER 100 WBCS) BY AUTOMATED COUNT 0.0 % Normal 0 [facility] Comment on above: Performed By: #### L [id number] ####[facility] ([facility])[address] [place] [address] PLATELETS (10*3/UL) IN BLOOD AUTOMATED COUNT 167 10*3/uL Normal 150-400 [facility] Comment on above: Performed By: #### L [id number] ####[facility] ([facility])[address] [place] [address] RBC (Bld) [#/Vol] 3.89 10*6/uL Normal 3.80-5.00 [facility] Comment on above: Performed By: #### L [id number] ####[facility] ([facility])[address] [place] [address] WBC (Bld) [#/Vol] 7.39 10*3/uL Normal 4.00-10.60 [facility] Comment on above: Performed By: #### L [id number] ####[facility] ([facility] [place] [address] CONSULTon 01-28-2024 CONSULT Normal [facility] CONSULT Normal [facility] MAGNESIUMon 01-28-2024 Magnesium [Mass/Vol] 1.9 mg/dL Normal 1.9-2.7 [facility] Comment on above: Performed By: #### L [id number] ####[facility] ([facility] [place] [address] Magnesium [Mass/Vol] 1.8 mg/dL Low 1.9-2.7 [facility] Comment on above: Performed By: #### L [id number] ####[facility] ([facility])[address] [place] [address] MRSA/MSSA DNA NASALon 2023 MRSA DNA Negative Normal Negative [facility] Comment on above: Order Comment: Testi ng methodology is an automated qualitative in vitro diagnostic test for the directdetection and differentiation of Staphylococcus aureus (SA) DNA and methicillin-resistant Staphylococcus aureus (MRSA) DNA from nasal swabs in patients at risk for nasal colonization. The test utilizes real-time polymerase chain reaction (PCR) for the amplification of MRSA/SA DNA and fluorogenic target-specific hybridization probes for the detection of the amplified DNA. A negative result does not preclude nasal colonization. Performed By: #### L [id number] ####[facility] ([facility] [place] [address] MSSA DNA Negative Normal Negative [facility] Comment on above: Order Comment: Testi ng methodology is an automated qualitative in vitro diagnostic test for the directdetection and differentiation of Staphylococcus aureus (SA) DNA and methicillin-resistant Staphylococcus aureus (MRSA) DNA from nasal swabs in patients at risk for nasal colonization. The test utilizes real-time polymerase chain reaction (PCR) for the amplification of MRSA/SA DNA and fluorogenic target-specific hybridization probes for the detection of the amplified DNA. A negative result does not preclude nasal colonization. Performed By: #### L [id number] ####[facility] ([facility])[address] [place] [address] NURSNOTEon 01-28-2024 NURSNOTE FLUORO: 41.9 MIN K: 1723 MGY CONTRAST: 80 ML [facility] NURSNOTE ACT 225 [facility] NURSNOTE Ok per Dr Van to gi ve amiodarone patient HR 53 [facility] OPNOTEon 01-28-2024 OPNOTE Normal [facility] PHOSPHORUSon 01-28-2024 Magnesium [Mass/Vol] 4.5 mg/dL Normal 2.5-5.0 [facility] Comment on above: Performed By: #### L [id number] ####[facility] ([facility])[address] [place] [address] POCT ACTIVATED CLOTTING TIME UNSOLICITED RESULTSon 01-28-2024 POC ACTIVATED CLOTTING TIME 225 sec High 82-152 [facility] Comment on above: Performed By: #### L [id number] ####[facility] ([facility])[address] [place] [address] POCT GLUCOSE METER UNSOLICIT ED RESULTSon 01-28-2024 Glucose [Mass/Vol] 112 mg/dL High 70-105 [facility] Comment on above: Order Comment: Waive d Testing in the ED is performed under the ED CLIA certificate #[id number]. Result Comment: [email or web address] Performed By: #### L [id number] ####[facility] ([facility])[address] [place] [address] Glucose [Mass/Vol] 105 mg/dL Normal 70-105 [facility] Comment on above: Order Comment: Waive d Testing in the ED is performed under the ED CLIA certificate #[id number]. Result Comment: [email or web address] Performed By: #### L [id number] ####[facility] ([facility])[address] [place] [address] POCT PERFUSION PANEL UNSOLIC ITED RESULTSon 01-28-2024 CO2 [Moles/Vol] 29.0 mmol/L Normal 21.0-29.0 [facility] Comment on above: Performed By: #### L [id number] ####[facility] ([facility])[address] [place] [address] Glucose [Mass/Vol] 139 mg/dL High 70-105 [facility] Comment on above: Performed By: #### L [id number] ####[facility] ([facility])[address] [place] [address] HCO3 (Bld) [Moles/Vol] 27.9 mmol/L Normal 23.0-28.0 [facility] Comment on above: Performed By: #### L [id number] ####[facility] (BEAKER)[address] [place] [address] Hematocrit (Bld) [Volume fraction] 33 % Low 38-51 [facility] Comment on above: Performed By: #### L [id number] ####[facility] (BEAKER)[address] [place] [address] Hemoglobin (Bld) [Mass/Vol] 11.2 g/dL Low 12.0-17.0 [facility] Comment on above: Performed By: #### L [id number] ####[facility] (BEAKER)[address] [place] [address] POCT BASE EXCESS 2.0 mmol/L Normal -2.0-3.0 [facility] Comment on above: Performed By: #### L [id number] ####[facility] (BEAKER)[address] [place] [address] POCT IONIZED CALCIUM 1.22 mmol/L Normal 1.12-1.[address] [facility] Comment on above: Performed By: #### L [id number] ####[facility] (BEAKER)[address] [place] [address] POCT PCO2 50.6 mmHg Normal 41.0-51.0 [facility] Comment on above: Performed By: #### L [id number] ####[facility] (BEAKER)[address] [place] [address] POCT PH 7.35 Normal 7.31-7.41 [facility] Comment on above: Performed By: #### L [id number] ####[facility] (BEAKER)[address] [place] [address] POCT PO2 122 mmHg High 80-105 [facility] Comment on above: Performed By: #### L [id number] ####[facility] (BEAKER)[address] [place] [address] POCT SO2 98 % Normal 95-98 [facility] Comment on above: Performed By: #### L [id number] ####[facility] (BEAKER)[address] [place] [address] Potassium [Moles/Vol] 4.0 mmol/L Normal 3.5-4.[address] [facility] Comment on above: Performed By: #### L [id number] ####[facility] [facility] [address] Sodium [Moles/Vol] 142 mmol/L Normal 138.0-146.0 [facility] Comment on above: Performed By: #### L [id number] ####[facility] ([facility] [facility] [address] POTASSIUM, WHOLE BLOODon Potassium [Moles/Vol] 3.9 mmol/L Normal 3.5-5.[address] [facility] Comment on above: Performed By: #### P OTASSIUM, WHOLE BLOOD ####[facility] RESPIRATORY [id number] [place] [address] [place] PROTIME-INRon 01-28-2024 INR IN PPP BY COAGULATION ASSAY 1.13 High 0.90-1.10 [facility] Comment on above: Result Comment: ACCC P RECOMMENDED INR FOR WARFARIN THERAPY CONDITION INRPROPHYLAXIS OF VENOUS THROMBOSIS 2-3(HIGH-RISK SURGERY)TREATMENT OF VENOUS THROMBOSIS 2-3TREATMENT OF PULMONARY EMBOLISM 2-3PREVENTION OF SYSTEMIC EMBOLISM: 2-3 ACUTE MYOCARDIAL INFARCTION TISSUE HEART VALVES VALVULAR HEART DISEASE ATRIAL FIBRILLATION RECURRENT SYSTEMIC EMBOLISMMECHANICAL HEART VALVE 2.5-3.5 FROM: ORAL ANTICOAGULANTS. MECHANISM OF ACTION, CLINICAL EFFECTIVENESS, AND OPTIMAL THERAPEUTIC RANGE. CHEST 1995;108:231S-246S. Performed By: #### L [id number] ####[facility] ([facility])[address] [place] [address] PROTHROMBIN TIME (PT) IN PPP BY COAGULATION ASSAY 14.5 Seconds Normal 12.3-14.8 [facility] Comment on above: Performed By: #### L [id number] ####[facility] ([facility])[address] [place] [address] SODIUM, WHOLE BLOODon 2023 SODIUM, WHOLE BLOOD 137 Normal 136-145 [facility] Comment on above: Performed By: #### S ODIUM, WHOLE BLOOD ####[facility] [id number] [place] [address] [place] 30on 01-27-2024 30 Normal [facility] APTTon 01-27-2024 ACTIVATED PARTIAL THROMBOPLASTIN TIME IN PPP BY COAGULATION ASSAY 32.6 Seconds Normal 25.0-35.0 [facility] Comment on above: Result Comment: Clin ical significance of the APTT is questionable in the presence of heparin. Performed By: #### L [id number] ####[facility] ([facility])[address] [place] [address] CBC WITH AUTO DIFFERENTIALon 01-27-2024 Basophils (Bld) [#/Vol] 0.03 10*3/uL Normal 0.00-0.20 [facility] Comment on above: Performed By: #### L [id number] ####[facility] ([facility])[address] [place] [address] Basophils/100 WBC (Bld) 0.4 % Normal 0.0-1.0 [facility] Comment on above: Performed By: #### L [id number] ####[facility] ([facility] [place] [address] Eosinophils (Bld) [#/Vol] 0.20 10*3/uL Normal 0.00-0.50 [facility] Comment on above: Performed By: #### L [id number] ####[facility] (BEAKER)[address] [place] [address] Eosinophils/100 WBC (Bld) 2.7 % Normal 0.0-6.0 [facility] Comment on above: Performed By: #### L [id number] ####[facility] (BEAKER)[address] [place] [address] Erythrocyte distribution width (RBC) [Ratio] 15.8 % High 11.5-15.0 [facility] Comment on above: Performed By: #### L [id number] ####[facility] (BEAKER)[address] [place] [address] ERYTHROCYTE MEAN CORPUSCULAR HEMOGLOBIN CONCENTRATION (G/DL) BY AUTOMATED 32.0 g/dL Normal 32.0-35.0 [facility] Comment on above: Performed By: #### L [id number] ####[facility] (BEAKER)[address] [place] [address] Hematocrit (Bld) [Volume fraction] 36.3 % Normal 36.0-48.0 [facility] Comment on above: Performed By: #### L [id number] ####[facility] (BEAKER)[address] [place] [address] Hemoglobin (Bld) [Mass/Vol] 11.6 g/dL Low 12.0-15.0 [facility] Comment on above: Performed By: #### L [id number] ####[facility] (BEAKER)[address] [place] [address] Immature granulocytes (Bld) [#/Vol] 0.05 10*3/uL Normal 0.00-0.20 [facility] Comment on above: Performed By: #### L [id number] ####[facility] (BEAKER)[address] [place] [address] Immature granulocytes/100 WBC (Bld) 0.7 % Normal 0.0-1.0 [facility] Comment on above: Performed By: #### L [id number] ####[facility] ([facility] [place] [address] Lymphocytes (Bld) [#/Vol] 1.81 10*3/uL Normal 1.20-4.00 [facility] Comment on above: Performed By: #### L [id number] ####[facility] ([facility])[address] [place] [address] Lymphocytes/100 WBC (Bld) 24.0 % Normal 20.0-45.0 [facility] Comment on above: Performed By: #### L [id number] ####[facility] ([facility])[address] [place] [address] MCH (RBC) [Entitic mass] 28.6 pg Normal 27.0-33.0 [facility] Comment on above: Performed By: #### L [id number] ####[facility] ([facility] [place] [address] MCV (RBC) [Entitic vol] 89.6 fL Normal 82.0-98.0 [facility] Comment on above: Performed By: #### L [id number] ####[facility] ([facility] [place] [address] Monocytes (Bld) [#/Vol] 0.62 10*3/uL Normal 0.10-1.00 [facility] Comment on above: Performed By: #### L [id number] ####[facility] ([facility] [place] [address] Monocytes/100 WBC (Bld) 8.2 % Normal 5.0-12.0 [facility] Comment on above: Performed By: #### L [id number] ####[facility] (BEAKER)[address] [place] [address] Neutrophils (Bld) [#/Vol] 4.82 10*3/uL Normal 1.60-7.60 [facility] Comment on above: Performed By: #### L [id number] ####[facility] ([facility] [place] [address] Neutrophils/100 WBC (Bld) 64.0 % Normal 40.0-72.0 [facility] Comment on above: Performed By: #### L [id number] ####[facility] ([facility])[address] [place] [address] NRBC (PER 100 WBCS) BY AUTOMATED COUNT 0.0 % Normal 0 [facility] Comment on above: Performed By: #### L [id number] ####[facility] ([facility])[address] [place] [address] PLATELETS (10*3/UL) IN BLOOD AUTOMATED COUNT 193 10*3/uL Normal 150-400 [facility] Comment on above: Performed By: #### L [id number] ####[facility] ([facility])[address] [place] [address] RBC (Bld) [#/Vol] 4.05 10*6/uL Normal 3.80-5.00 [facility] Comment on above: Performed By: #### L [id number] ####[facility] ([facility])[address] [place] [address] WBC (Bld) [#/Vol] 7.53 10*3/uL Normal 4.00-10.60 [facility] Comment on above: Performed By: #### L [id number] ####[facility] [place] [address] COMPREHENSIVE METABOLIC PANE Bao 01-27-2024 Albumin [Mass/Vol] 3.7 g/dL Normal 3.5-5.7 [facility] Comment on above: Performed By: #### L [id number] ####[facility] (BEAKER)[address] [place] [address] ALP [Catalytic activity/Vol] 81 U/L Normal 34-104 [facility] Comment on above: Performed By: #### L [id number] ####[facility] ([facility])[address] [place] [address] ALT [Catalytic activity/Vol] 9 U/L Normal 7-52 [facility] Comment on above: Performed By: #### L [id number] ####[facility] ([facility])[address] [place] [address] Anion gap [Moles/Vol] 10 mmol/L Normal 7-[address] [facility] Comment on above: Performed By: #### L [id number] ####[facility] ([facility])[address] [place] [address] AST [Catalytic activity/Vol] 13 U/L Normal 13-39 [facility] Comment on above: Performed By: #### L [id number] ####[facility] ([facility])[address] [place] [address] Bilirubin [Mass/Vol] 0.8 mg/dL Normal 0.3-1.0 [facility] [facility] Comment on above: Performed By: #### L [id number] ####[facility] (BEAKER)[address] [place] [address] Calcium [Mass/Vol] 9.0 mg/dL Normal 8.6-10.3 [facility] Comment on above: Performed By: #### L [id number] ####[facility] (BEAKER)[address] [place] [address] Chloride [Moles/Vol] 106 mmol/L Normal 98-107 [facility] Comment on above: Performed By: #### L [id number] ####[facility] (BEAKER)[address] [place] [address] CO2 [Moles/Vol] 27 mmol/L Normal 21-31 [facility] Comment on above: Performed By: #### L [id number] ####[facility] (BEAKER)[address] [place] [address] Creatinine [Mass/Vol] 1.14 mg/dL Normal 0.60-1.[address] [facility] Comment on above: Performed By: #### L [id number] ####[facility] ([facility])[address] [place] [address] GLOMERULAR FILTRATION RATE ML/MIN/1.73 SQ M.PREDICTED 48.7 mL/min/1.73m*2 Low >60.0 [facility] Comment on above: Result Comment: The [facility]???s estimated glomerular filtration rate (eGFR) will no [...] group of individuals. Performed By: #### L [id number] ####[facility] ([facility])[address] [place] [address] Glucose [Mass/Vol] 88 mg/dL Normal 70-100 [facility] Comment on above: Performed By: #### L [id number] ####[facility] ([facility])[address] [place] [address] Potassium [Moles/Vol] 3.8 mmol/L Normal 3.5-5.[address] [facility] Comment on above: Performed By: #### L [id number] ####[facility] ([facility])[address] [place] [address] Protein [Mass/Vol] 5.9 g/dL Low 6.0-8.3 [facility] Comment on above: Performed By: #### L [id number] ####[facility] ([facility])[address] [place] [address] Sodium [Moles/Vol] 139 mmol/L Normal 136-145 [facility] Comment on above: Performed By: #### L [id number] ####[facility] ([facility])[address] [place] [address] Urea nitrogen [Mass/Vol] 20 mg/dL Normal 7-25 [facility] Comment on above: Performed By: #### L [id number] ####[facility] ([facility])[address] [place] [address] UREA NITROGEN/CREATININE (MASS RATIO) IN SER/PLAS 17.5 Normal [facility] Comment on above: Performed By: #### L [id number] ####[facility] ([facility])[address] [address] CONSULTon 01-27-2024 CONSULT Normal [facility] CTA ABDOMEN PELVIS W IV CONT RASTon 01-27-2024 CTA ABDOMEN PELVIS W IV CONTRAST Normal [facility] CTA CHEST W IV CONTRASTon CTA CHEST W IV CONTRAST Normal [facility] EDPROVon 01-27-2024 EDPROV Normal [facility] HPon 01-27-2024 HP Normal [facility] LACTIC ACID WITH 4 HOUR REFL EXon 01-27-2024 LACTATE (MMOL/L) IN SER/PLAS 0.7 mmol/L Normal 0.5-2.2 [facility] Comment on above: Performed By: #### L [id number] ####[facility] ([facility])[address] [place] [address] LIPASEon 01-27-2024 LIPASE (U/L) IN SER/PLAS 18 U/L Normal 11-82 [facility] Comment on above: Performed By: #### L [id number] ####[facility] ([facility])[address] [place] [address] MAGNESIUMon 01-27-2024 Magnesium [Mass/Vol] 1.9 mg/dL Normal 1.9-2.7 [facility] Comment on above: Performed By: #### L [id number] ####[facility] ([facility])[address] [address] POCT GLUCOSE METER UNSOLICIT ED RESULTSon 01-27-2024 Glucose [Mass/Vol] 158 mg/dL High 70-105 [facility] Comment on above: Order Comment: Waive d Testing in the ED is performed under the ED CLIA certificate #[id number]. Result Comment: [email or web address] Performed By: #### L [id number] ####[facility] ([employer])[address] [place] [address] Glucose [Mass/Vol] 86 mg/dL Normal 70-105 [facility] Comment on above: Order Comment: Waive d Testing in the ED is performed under the ED CLIA certificate #[id number]. Result Comment: [email or web address] Performed By: #### L [id number] ####[facility] ([employer])[address] [place] [address] Glucose [Mass/Vol] 99 mg/dL Normal 70-105 [facility] Comment on above: Order Comment: Waive d Testing in the ED is performed under the ED CLIA certificate #[id number]. Result Comment: [email or web address] Performed By: #### L [id number] ####[facility] ([facility])[address] [place] [address] PROTIME-INRon 01-27-2024 INR IN PPP BY COAGULATION ASSAY 1.16 High 0.90-1.10 [facility] Comment on above: Result Comment: ACCC P RECOMMENDED INR FOR WARFARIN THERAPY CONDITION INRPROPHYLAXIS OF VENOUS THROMBOSIS 2-3(HIGH-RISK SURGERY)TREATMENT OF VENOUS THROMBOSIS 2-3TREATMENT OF PULMONARY EMBOLISM 2-3PREVENTION OF SYSTEMIC EMBOLISM: 2-3 ACUTE MYOCARDIAL INFARCTION TISSUE HEART VALVES VALVULAR HEART DISEASE ATRIAL FIBRILLATION RECURRENT SYSTEMIC EMBOLISMMECHANICAL HEART VALVE 2.5-3.5 FROM: ORAL ANTICOAGULANTS. MECHANISM OF ACTION, CLINICAL EFFECTIVENESS, AND OPTIMAL THERAPEUTIC RANGE. CHEST 1995;108:231S-246S. Performed By: #### L [id number] ####[facility] ([facility])[address] [place] [address] PROTHROMBIN TIME (PT) IN PPP BY COAGULATION ASSAY 14.8 Seconds Normal 12.3-14.8 [facility] Comment on above: Performed By: #### L [id number] ####[facility] ([facility])[address] [place] [address] TROPONIN Ion 01-27-2024 Troponin I.cardiac [Mass/Vol] 0.02 ng/mL Normal 0.00-0.04 [facility] Comment on above: Performed By: #### L [id number] ####[facility] ([facility])[address] [place] [address] TYPE AND SCREENon 01-27-2024 AB SCREEN Negative Normal [facility] Comment on above: Performed By: #### L [id number] ####[facility]OD [facility], ABO group Nom (Bld) O Normal [facility] Comment on above: Performed By: #### L [id number] ####[facility]OD [facility], RH TYPE IN BLOOD Positive Normal [facility] Comment on above: Performed By: #### L [id number] ####[facility]OD [facility], 36on 01-21-2024 36 Normal [facility] 36on 12-07-2023 36 [facility] Telephoneon 12-07-2023 Telephone [facility] 30on 12-06-2023 30 Normal [facility] 30 Normal [facility] CBCon 12-06-2023 Erythrocyte distribution width (RBC) [Ratio] 15.8 % High 11.5-15.0 [facility] Comment on above: Performed By: #### L [id number] ####[facility] ([facility])[address] [place] [address] ERYTHROCYTE MEAN CORPUSCULAR HEMOGLOBIN CONCENTRATION (G/DL) BY AUTOMATED 31.6 g/dL Low 32.0-35.0 [facility] Comment on above: Performed By: #### L [id number] ####[facility] ([facility])[address] [place] [address] Hematocrit (Bld) [Volume fraction] 29.4 % Low 36.0-48.0 [facility] Comment on above: Performed By: #### L [id number] ####[facility] ([facility])[address] [place] [address] Hemoglobin (Bld) [Mass/Vol] 9.3 g/dL Low 12.0-15.0 [facility] Comment on above: Performed By: #### L [id number] ####[facility] ([facility])[address] [place] [address] MCH (RBC) [Entitic mass] 27.8 pg Normal 27.0-33.0 [facility] Comment on above: Performed By: #### L [id number] ####[facility] ([facility])[address] [place] [address] MCV (RBC) [Entitic vol] 88.0 fL Normal 82.0-98.0 [facility] Comment on above: Performed By: #### L [id number] ####[facility] ([facility])[address] [place] [address] PLATELETS (10*3/UL) IN BLOOD AUTOMATED COUNT 304 10*3/uL Normal 150-400 [facility] Comment on above: Performed By: #### L [id number] ####[facility] ([facility])[address] [place] [address] RBC (Bld) [#/Vol] 3.34 10*6/uL Low 3.80-5.00 [facility] Comment on above: Performed By: #### L [id number] ####[facility] ([facility] [place] [address] WBC (Bld) [#/Vol] 5.95 10*3/uL Normal 4.00-10.60 [facility] Comment on above: Performed By: #### L [id number] ####[facility] ([employer])[address] [place] [address] DSon 12-06-2023 DS Normal [facility] POCT GLUCOSE METER UNSOLICIT ED RESULTSon 12-06-2023 Glucose [Mass/Vol] 105 mg/dL Normal 70-105 [facility] Comment on above: Order Comment: Waive d Testing in the ED is performed under the ED CLIA certificate #[id number]. Result Comment: [email or web address] Performed By: #### L [id number] ####[facility] ([facility])[address] [place] [address] Glucose [Mass/Vol] 103 mg/dL Normal 70-105 [facility] Comment on above: Order Comment: Waive d Testing in the ED is performed under the ED CLIA certificate #[id number]. Result Comment: [email or web address] Performed By: #### L [id number] ####[facility] ([place] [facility] [place] [address] 30on 12-05-2023 30 Normal [facility] 30 Normal [facility] ANESon 12-05-2023 ANES Normal [facility] APTTon 12-05-2023 ACTIVATED PARTIAL THROMBOPLASTIN TIME IN PPP BY COAGULATION ASSAY 136.8 Seconds Critically high 25.0-35.0 [facility] Comment on above: Order Comment: Check aPTT every 6 hours while on heparin infusion, or per protocol. Result Comment: Clin ical significance of the APTT is questionable in the presence of heparin. Performed By: #### L [id number] ####[facility] ([employer])[address] [place] [address] ACTIVATED PARTIAL THROMBOPLASTIN TIME IN PPP BY COAGULATION ASSAY 38.4 Seconds High 25.0-35.0 [facility] Comment on above: Result Comment: Clin ical significance of the APTT is questionable in the presence of heparin. Performed By: #### L [id number] ####[facility] (BEAKER)[address] [place] [address] B-TYPE NATRIURETIC PEPTIDEon 12-05-2023 Natriuretic peptide B (Bld) [Mass/Vol] 555 pg/mL High 0-100 [facility] Comment on above: Performed By: #### L [id number] ####[facility] (BEAKER)[address] [place] [address] BASIC METABOLIC PANELon 11-24 Anion gap [Moles/Vol] 8 mmol/L Normal 7-[address] [facility] Comment on above: Performed By: #### L [id number] ####[facility] ([facility] [place] [address] Calcium [Mass/Vol] 9.0 mg/dL Normal 8.6-10.3 [facility] Comment on above: Performed By: #### L [id number] ####[facility] ([facility] [place] [address] Chloride [Moles/Vol] 107 mmol/L Normal 98-107 [facility] Comment on above: Performed By: #### L [id number] ####[facility] ([facility] [place] [address] CO2 [Moles/Vol] 29 mmol/L Normal 21-31 [facility] Comment on above: Performed By: #### L [id number] ####[facility] ([facility] [place] [address] Creatinine [Mass/Vol] 1.09 mg/dL Normal 0.60-1.[address] [facility] Comment on above: Performed By: #### L [id number] ####[facility] ([facility] [place] [address] GLOMERULAR FILTRATION RATE ML/MIN/1.73 SQ M.PREDICTED 51.4 mL/min/1.73m*2 Low >60.0 [facility] Comment on above: Result Comment: The [facility]???s estimated glomerular filtration rate (eGFR) will no [...] of individuals. Performed By: #### L [id number] ####[facility] ([facility])[address] [place] [address] Glucose [Mass/Vol] 91 mg/dL Normal 70-100 [facility] Comment on above: Performed By: #### L [id number] ####[facility] ([facility])[address] [place] [address] Potassium [Moles/Vol] 4.0 mmol/L Normal 3.5-5.1 [facility] Comment on above: Performed By: #### L [id number] ####[facility] ([facility])[address] [place] [address] Sodium [Moles/Vol] 140 mmol/L Normal 136-145 [facility] Comment on above: Performed By: #### L [id number] ####[facility] ([facility])[address] [place] [address] Urea nitrogen [Mass/Vol] 14 mg/dL Normal 7-25 [facility] Comment on above: Performed By: #### L [id number] ####[facility] ([facility])[address] [place] [address] UREA NITROGEN/CREATININE (MASS RATIO) IN SER/PLAS 12.8 Normal [facility] Comment on above: Performed By: #### L [id number] ####[facility] ([facility])[address] [place] [address] CBC WITH AUTO DIFFERENTIALon 12-05-2023 Basophils (Bld) [#/Vol] 0.04 10*3/uL Normal 0.00-0.20 [facility] Comment on above: Performed By: #### L [id number] ####[facility] (BEAKER)[address] [place] [address] Basophils/100 WBC (Bld) 0.6 % Normal 0.0-1.0 [facility] Comment on above: Performed By: #### L [id number] ####[facility] (BEAKER)[address] [place] [address] Eosinophils (Bld) [#/Vol] 0.16 10*3/uL Normal 0.00-0.50 [facility] Comment on above: Performed By: #### L [id number] ####[facility] (BEAKER)[address] [place] [address] Eosinophils/100 WBC (Bld) 2.5 % Normal 0.0-6.0 [facility] Comment on above: Performed By: #### L [id number] ####[facility] (BEAKER)[address] [place] [address] Erythrocyte distribution width (RBC) [Ratio] 15.7 % High 11.5-15.0 [facility] Comment on above: Performed By: #### L [id number] ####[facility] (BEAKER)[address] [place] [address] ERYTHROCYTE MEAN CORPUSCULAR HEMOGLOBIN CONCENTRATION (G/DL) BY AUTOMATED 30.9 g/dL Low 32.0-35.0 [facility] Comment on above: Performed By: #### L [id number] ####[facility] (BEAKER)[address] [place] [address] Hematocrit (Bld) [Volume fraction] 31.1 % Low 36.0-48.0 [facility] Comment on above: Performed By: #### L [id number] ####[facility] (BEAKER)[address] [place] [address] Hemoglobin (Bld) [Mass/Vol] 9.6 g/dL Low 12.0-15.0 [facility] Comment on above: Performed By: #### L [id number] ####[facility] (BEAKER)[address] [place] [address] Immature granulocytes (Bld) [#/Vol] 0.04 10*3/uL Normal 0.00-0.20 [facility] Comment on above: Performed By: #### L [id number] ####[facility] (BEAKER)[address] [place] [address] Immature granulocytes/100 WBC (Bld) 0.6 % Normal 0.0-1.0 [facility] Comment on above: Performed By: #### L [id number] ####[facility] (BEAKER)[address] [place] [address] Lymphocytes (Bld) [#/Vol] 1.75 10*3/uL Normal 1.20-4.00 [facility] Comment on above: Performed By: #### L [id number] ####[facility] (BEAKER)[address] [place] [address] Lymphocytes/100 WBC (Bld) 26.8 % Normal 20.0-45.0 [facility] Comment on above: Performed By: #### L [id number] ####[facility] (BEAKER)[address] [place] [address] MCH (RBC) [Entitic mass] 28.0 pg Normal 27.0-33.0 [facility] Comment on above: Performed By: #### L [id number] ####[facility] (BEAKER)[address] [place] [address] MCV (RBC) [Entitic vol] 90.7 fL Normal 82.0-98.0 [facility] Comment on above: Performed By: #### L [id number] ####[facility] (BEAKER)[address] [place] [address] Monocytes (Bld) [#/Vol] 0.49 10*3/uL Normal 0.10-1.00 [facility] Comment on above: Performed By: #### L [id number] ####[facility] (BEAKER)[address] [place] [address] Monocytes/100 WBC (Bld) 7.5 % Normal 5.0-12.0 [facility] Comment on above: Performed By: #### L [id number] ####[facility] ([facility])[address] [place] [address] Neutrophils (Bld) [#/Vol] 4.05 10*3/uL Normal 1.60-7.60 [facility] Comment on above: Performed By: #### L [id number] ####[facility] ([facility])[address] [place] [address] Neutrophils/100 WBC (Bld) 62.0 % Normal 40.0-72.0 [facility] Comment on above: Performed By: #### L [id number] ####[facility] ([facility])[address] [place] [address] NRBC (PER 100 WBCS) BY AUTOMATED COUNT 0.0 % Normal 0 [facility] Comment on above: Performed By: #### L [id number] ####[facility] ([facility])[address] [place] [address] PLATELETS (10*3/UL) IN BLOOD AUTOMATED COUNT 299 10*3/uL Normal 150-400 [facility] Comment on above: Performed By: #### L [id number] ####[facility] ([facility] [place] [address] RBC (Bld) [#/Vol] 3.43 10*6/uL Low 3.80-5.00 [facility] Comment on above: Performed By: #### L [id number] ####[facility] ([facility])[address] [place] [address] WBC (Bld) [#/Vol] 6.53 10*3/uL Normal 4.00-10.60 [facility] Comment on above: Performed By: #### L [id number] ####[facility] (BEAKER)[address] [place] [address] COMPREHENSIVE METABOLIC PANE Bao 12-05-2023 Albumin [Mass/Vol] 3.2 g/dL Low 3.5-5.7 [facility] Comment on above: Performed By: #### L [id number] ####[facility] ([facility])[address] [place] [address] ALP [Catalytic activity/Vol] 78 U/L Normal 34-104 [facility] Comment on above: Performed By: #### L [id number] ####[facility] ([facility])[address] [place] [address] ALT [Catalytic activity/Vol] 4 U/L Low 7-52 [facility] Comment on above: Performed By: #### L [id number] ####[facility] ([facility])[address] [place] [address] Anion gap [Moles/Vol] 10 mmol/L Normal 7-[address] [facility] Comment on above: Performed By: #### L [id number] ####[facility] ([facility])[address] [place] [address] AST [Catalytic activity/Vol] 9 U/L Low 13-39 [facility] Comment on above: Performed By: #### L [id number] ####[facility] ([facility])[address] [place] [address] Bilirubin [Mass/Vol] 0.6 mg/dL Normal 0.3-1.0 [facility] Comment on above: Performed By: #### L [id number] ####[facility] ([facility])[address] [place] [address] Calcium [Mass/Vol] 8.9 mg/dL Normal 8.6-10.3 [facility] Comment on above: Performed By: #### L [id number] ####[facility] ([facility])[address] [place] [address] Chloride [Moles/Vol] 107 mmol/L Normal 98-107 [facility] Comment on above: Performed By: #### L [id number] ####[facility] ([facility])[address] [place] [address] CO2 [Moles/Vol] 27 mmol/L Normal 21-31 [facility] Comment on above: Performed By: #### L [id number] ####[facility] ([facility])[address] [place] [address] Creatinine [Mass/Vol] 1.15 mg/dL Normal 0.60-1.[address] [facility] Comment on above: Performed By: #### L [id number] ####[facility] ([facility])[address] [facility] [address] GLOMERULAR FILTRATION RATE ML/MIN/1.73 SQ M.PREDICTED 48.2 mL/min/1.73m*2 Low >60.0 [facility] Comment on above: Result Comment: [facility]???s estimated glomerular filtration rate (eGFR) will no [...] group of individuals. Performed By: #### L [id number] ####[facility] ([facility])[address] [place] [address] Glucose [Mass/Vol] 90 mg/dL Normal 70-100 [facility] Comment on above: Performed By: #### L [id number] ####[facility] ([facility])[address] [place] [address] Potassium [Moles/Vol] 4.1 mmol/L Normal 3.5-5.[address] [facility] Comment on above: Performed By: #### L [id number] ####[facility] ([facility])[address] [place] [address] Protein [Mass/Vol] 5.7 g/dL Low 6.0-8.3 [facility] Comment on above: Performed By: #### L [id number] ####[facility] (BEAKER)[address] [place] [address] Sodium [Moles/Vol] 140 mmol/L Normal 136-145 [facility] Comment on above: Performed By: #### L [id number] ####[facility] (BEAKER)[address] [place] [address] Urea nitrogen [Mass/Vol] 15 mg/dL Normal 7-25 [facility] Comment on above: Performed By: #### L [id number] ####[facility] ([facility] [place] [address] UREA NITROGEN/CREATININE (MASS RATIO) IN SER/PLAS 13.0 [facility] Comment on above: Performed By: #### L [id number] ####[facility] ([facility])[address] [place] [address] CONSULTon 12-05-2023 CONSULT [facility] HEMOGLOBIN A1Con 12-05-2023 Glucose [Mass/Vol] 105 mg/dL Normal [facility] Comment on above: Performed By: #### L [id number] ####[facility] ([facility])[address] [place] [address] HbA1c (Bld) [Mass fraction] 5.3 % Normal 4.0-6.0 [facility] Comment on above: Performed By: #### L [id number] ####[facility] ([facility] [place] [address] HPon 12-05-2023 HP [facility] HP [facility] LIPID PANELon 12-05-2023 CHOL/HDL 5.1 mg/dL Normal [facility] Comment on above: Performed By: #### L [id number] ####[facility] ([facility] [place] [address] Cholesterol [Mass/Vol] 164 mg/dL Normal 120-200 [facility] Comment on above: Performed By: #### L [id number] ####[facility] ([facility] [place] [address] Magnesium [Mass/Vol] 101 mg/dL Normal 40-149 [facility] Comment on above: Result Comment: TRIG LYCERIDE REFERENCE RANGE:20 YEARS AND OLDER CARDIOVASCULAR RISKLESS THAN 150 mg/dL LOW [id number] TO 199 mg/dL BORDERLINE [id number] mg/dL AND GREATER HIGH RISK Performed By: #### L [id number] ####[facility] ([facility])[address] [place] [address] Magnesium [Mass/Vol] 112 mg/dL Normal 0-160 [facility] Comment on above: Performed By: #### L [id number] ####[facility] [facility] ([facility])[address] [place] [address] Magnesium [Mass/Vol] 32 mg/dL Normal 23-92 [facility] Comment on above: Performed By: #### L [id number] ####[facility] ([facility])[address] [place] [address] NON HDL CHOL. (LDL+VLDL) 132 Normal [facility] Comment on above: Performed By: #### L [id number] ####[facility] ([facility])[address] [place] [address] TOTAL VLDL-C 20 mg/dL Normal 0-40 [facility] Comment on above: Performed By: #### L [id number] ####[facility] ([facility])[address] [place] [address] MAGNESIUMon 12-05-2023 Magnesium [Mass/Vol] 1.9 mg/dL Normal 1.9-2.7 [facility] Comment on above: Performed By: #### L [id number] ####[facility] ([facility])[address] [place] [address] POCT GLUCOSE METER UNSOLICIT ED RESULTSon 12-05-2023 Glucose [Mass/Vol] 105 mg/dL Normal 70-105 [facility] Comment on above: Order Comment: Waive d Testing in the ED is performed under the ED CLIA certificate #[id number]. Result Comment: [email or web address] [email or web address] Performed By: #### L [id number] ####[facility] ([facility])[address] [place] [address] Glucose [Mass/Vol] 118 mg/dL High 70-105 [facility] Comment on above: Order Comment: Waive d Testing in the ED is performed under the ED CLIA certificate #[id number]. Result Comment: valeria mancuso Performed By: #### L [id number] ####[facility] ([facility])[address] [place] [address] Glucose [Mass/Vol] 100 mg/dL Normal 70-105 [facility] Comment on above: Order Comment: Waive d Testing in the ED is performed under the ED CLIA certificate #[id number]. Result Comment: teetee arita Performed By: #### L [id number] ####[facility] ([facility])[address] [place] [address] Glucose [Mass/Vol] 107 mg/dL High 70-105 [facility] Comment on above: Order Comment: Waive d Testing in the ED is performed under the ED CLIA certificate #[id number]. Result Comment: jason forbes Performed By: #### L [id number] ####[facility] ([facility])[address] [place] [address] Glucose [Mass/Vol] 94 mg/dL Normal 70-105 [facility] Comment on above: Order Comment: Waive d Testing in the ED is performed under the ED CLIA certificate #[id number]. Result Comment: jason forbes Performed By: #### L [id number] ####[facility] ([facility])[address] [place] [address] PROTIME-INRon 12-05-2023 INR IN PPP BY COAGULATION ASSAY 1.14 High 0.90-1.10 [facility] Comment on above: Result Comment: ACCC P RECOMMENDED INR FOR WARFARIN THERAPY CONDITION INRPROPHYLAXIS OF VENOUS THROMBOSIS 2-3(HIGH-RISK SURGERY)TREATMENT OF VENOUS THROMBOSIS 2-3TREATMENT OF PULMONARY EMBOLISM 2-3PREVENTION OF SYSTEMIC EMBOLISM: 2-3 ACUTE MYOCARDIAL INFARCTION TISSUE HEART VALVES VALVULAR HEART DISEASE ATRIAL FIBRILLATION RECURRENT SYSTEMIC EMBOLISMMECHANICAL HEART VALVE 2.5-3.5 FROM: ORAL ANTICOAGULANTS. MECHANISM OF ACTION, CLINICAL EFFECTIVENESS, AND OPTIMAL THERAPEUTIC RANGE. CHEST 1995;108:231S-246S. Performed By: #### L [id number] ####[facility] [place] [address] PROTHROMBIN TIME (PT) IN PPP BY COAGULATION ASSAY 14.6 Seconds Normal 12.3-14.8 [facility] Comment on above: Performed By: #### L [id number] ####[facility] [employer])[address] [place] [address] TROPONIN Ion 12-05-2023 Troponin I.cardiac [Mass/Vol] 0.01 ng/mL Normal 0.00-0.04 [facility] Comment on above: Performed By: #### L [id number] ####[facility] [employer])[address] [place] [address] Troponin I.cardiac [Mass/Vol] 0.02 ng/mL Normal 0.00-0.04 [facility] Comment on above: Performed By: #### L [id number] ####[facility] [employer])[address] [place] [address] Troponin I.cardiac [Mass/Vol] 0.01 ng/mL Normal 0.00-0.04 [facility] Comment on above: Performed By: #### L [id number] ####[facility] ([employer])[address] [place] [address] Troponin I.cardiac [Mass/Vol] 0.01 ng/mL Normal 0.00-0.04 [facility] Comment on above: Performed By: #### L [id number] ####[facility] ([facility])[address] [place] [address] Orders Onlyon 12-02-2023 Orders Only [id number] Sunday Maynard kit A 1945 F Date Provider Department Center 12/02/2023 JF MOT[facility] No family history on file Normal [facility] Glucose Poct Glucometerson 0 04-24-2023 Commemt1 Glu2: Cleaned Meter Normal [facility] Comment on above: Result Comment: PERF ORMED BY: [facility] [address] [place] [address] PATHOLOGIST TELEMETRY NURSE MARKELL WILDE M.D. Performed By: #### G LULS #### Point of Care testing , Glucose [Mass/Vol] 95 mg/dL Normal [facility] Comment on above: Result Comment: [facility] Glucose Reference Range is dependent on time and content of last meal. Glucose of more than 200 mg/dL in a nonstressed, ambulatory subject supports the diagnosis of Diabetes Mellitus. Performed By: #### G LULS #### Point of Care testing , Alanine aminotransferase [En zymatic activity/volume] in Serum or PlasmaOrdered By: Anju Lees on 04-17-2023 ALT [Catalytic activity/Vol] 11 U/L 7-52 [facility] Albumin [Mass/volume] in Ser um or Plasma by Bromocresol green (BCG) dye binding methoOrdered By: Anju Lees on 04-17-2023 Albumin BCG dye [Mass/Vol] 3.7 g/dL 3.5-5.7 [facility] Alkaline phosphatase [Enzyma tic activity/volume] in Serum or PlasmaOrdered By: Anju Lees on 04-17-2023 ALP [Catalytic activity/Vol] 110 U/L 34-104 [facility] Aspartate aminotransferase [ Enzymatic activity/volume] in Serum or PlasmaOrdered By: Anju Lees on 04-17-2023 AST [Catalytic activity/Vol] 16 U/L 13-39 [facility] Basophils Auto (Bld) [#/Vol] Ordered By: Anju Lees on 04-17-2023 Basophils (Bld) [#/Vol] 0.1 10*3/uL 0.0-0.2 [facility] Basophils/100 WBC Auto (Bld) Ordered By: Anju Lees on 04-17-2023 Basophils/100 WBC (Bld) 0.6 % . [facility] Bilirubin.total [Mass/volume ] in Serum or PlasmaOrdered By: Anju Lees on 04-17-2023 Bilirubin [Mass/Vol] 0.5 mg/dL 0.3-1.0 [facility] CMP with reflex to A1Con Albumin [Mass/Vol] 3.7 g/dL Normal 3.5-5.7 [facility] Comment on above: Performed By: #### C MP wRFX A1C, CBC #### [facility] [address] Albumin/Globulin [Mass ratio] 1.9 {ratio} Normal [facility] Comment on above: Performed By: #### C MP wRFX A1C, CBC #### [facility] [address] ALP [Catalytic activity/Vol] 110 U/L High 34-104 [facility] Comment on above: Result Comment: PERF ORMED BY: [place] [address] PATHOLOGIST TELEMETRY NURSE MARKELL WILDE M.D. Performed By: #### C MP wRFX A1C, CBC #### [facility] [address] [place] [address] [place] ALT [Catalytic activity/Vol] 11 U/L Normal 7-52 [facility] Comment on above: Performed By: #### C MP wRFX A1C, CBC #### [facility] [address] Anion gap [Moles/Vol] 10.3 mmol/L Normal 6.0-15.0 [facility] Comment on above: Performed By: #### C MP wRFX A1C, CBC #### [facility] [address] [place] [address] [place] AST [Catalytic activity/Vol] 16 U/L Normal 13-39 [facility] Comment on above: Performed By: #### C MP wRFX A1C, CBC #### [facility] [address] [place] [id number] [place] Bilirubin [Mass/Vol] 0.5 mg/dL Normal 0.3-1.0 [facility] Comment on above: Performed By: #### C MP wRFX A1C, CBC #### [facility] [address] [place] [address] [place] Calcium [Mass/Vol] 9.5 mg/dL Normal 8.6-10.3 [facility] Comment on above: Performed By: #### C MP wRFX A1C, CBC #### [facility] [address] [place] [address] [place] Chloride [Moles/Vol] 102 mmol/L Normal 98-107 [facility] Comment on above: Performed By: #### C MP wRFX A1C, CBC #### [facility] [address] [place] [address] [place] CO2 [Moles/Vol] 31.9 mmol/L High 21.0-31.0 [facility] Comment on above: Performed By: #### C MP wRFX A1C, CBC #### [facility] [address] [place] [address] [place] Creatinine [Mass/Vol] 1.01 mg/dL Normal 0.60-1.20 [facility] Comment on above: Performed By: #### C MP wRFX A1C, CBC #### [facility] [address] [place] [address] [place] GFR/1.73 sq M.predicted MDRD (S/P/Bld) [Vol rate/Area] 56.627 mL/min/{1.73_m2} Normal [facility] Comment on above: Performed By: #### C MP wRFX A1C, CBC #### [facility] [address] Globulin (S) [Mass/Vol] 2.0 g/dL Normal [facility] Comment on above: Performed By: #### C MP wRFX A1C, CBC #### [facility] [address] Glucose [Mass/Vol] 89 mg/dL Normal 70-100 [facility] Comment on above: Performed By: #### C MP wRFX A1C, CBC #### [facility] [address] Potassium [Moles/Vol] 4.2 mmol/L Normal 3.5-5.1 [facility] Comment on above: Performed By: #### C MP wRFX A1C, CBC #### [facility] [address] Protein [Mass/Vol] 5.7 g/dL Low 6.4-8.9 [facility] Comment on above: Performed By: #### C MP wRFX A1C, CBC #### [facility] [address] Sodium [Moles/Vol] 140 mmol/L Normal 136-145 [facility] Comment on above: Performed By: #### C MP wRFX A1C, CBC #### [facility] [address] Urea nitrogen [Mass/Vol] 23 mg/dL Normal 7-25 [facility] Comment on above: Performed By: #### C MP wRFX A1C, CBC #### [facility] [address] [place] [address] [place] Calcium [Mass/volume] in Ser um or PlasmaOrdered By: Anju Lees on 04-17-2023 Calcium [Mass/Vol] 9.5 mg/dL 8.6-10.3 [facility] Carbon dioxide, total [Moles /volume] in Serum or PlasmaOrdered By: Anju Lees on 04-17-2023 CO2 [Moles/Vol] 31.9 mmol/L 21.0-31.0 [facility] Chloride [Moles/volume] in S martita or PlasmaOrdered By: Anju Lees on 04-17-2023 Chloride [Moles/Vol] 102 mmol/L 98-107 [facility] Complete Blood Count Auto Di ffon 04-17-2023 Basophils (Bld) [#/Vol] 0.1 10*3/uL Normal 0.0-0.2 [facility] Comment on above: Result Comment: PERF ORMED BY: [facility] [address] [place] [address] PATHOLOGIST TELEMETRY NURSE MARKELL WILDE M.D. Performed By: #### C MP wRFX A1C, CBC #### [facility] [address] Basophils/100 WBC (Bld) 0.6 % Normal . [facility] Comment on above: Performed By: #### C MP wRFX A1C, CBC #### [facility] [address] [place] [address] [place] Eosinophils (Bld) [#/Vol] 0.3 10*3/uL Normal 0.0-0.45 [facility] Comment on above: Performed By: #### C MP wRFX A1C, CBC #### [facility] [address] [place] [address] [place] Eosinophils/100 WBC (Bld) 3.1 % Normal . [facility] Comment on above: Performed By: #### C MP wRFX A1C, CBC #### [facility] [address] Erythrocyte distribution width (RBC) [Ratio] 16.3 % High 11.9-15.3 [facility] Comment on above: Performed By: #### C MP wRFX A1C, CBC #### [facility] [address] Hematocrit (Bld) [Volume fraction] 33.3 % Low 34.0-46.4 [facility] Comment on above: Performed By: #### C MP wRFX A1C, CBC #### [facility] [address] [place] [address] [place] Hemoglobin (Bld) [Mass/Vol] 11.1 g/dL Low 11.8-15.4 [facility] Comment on above: Performed By: #### C MP wRFX A1C, CBC #### [address] Lymphocytes (Bld) [#/Vol] 2.1 10*3/uL Normal 1.00-4.8 [facility] Comment on above: Performed By: #### C MP wRFX A1C, CBC #### [address] Lymphocytes/100 WBC (Bld) 22.7 % Normal . [facility] Comment on above: Performed By: #### C MP wRFX A1C, CBC #### [address] MCH (RBC) [Entitic mass] 27.9 pg Normal 24.7-34.3 [facility] Comment on above: Performed By: #### C MP wRFX A1C, CBC #### [address] MCV (RBC) [Entitic vol] 83.3 fL Normal 80-100 [facility] Comment on above: Performed By: #### C MP wRFX A1C, CBC #### [address] Mean Corpuscular HGB Conc 33.4 g/dL Normal 32.0-35.0 [facility] Comment on above: Performed By: #### C MP wRFX A1C, CBC #### [address] Monocytes (Bld) [#/Vol] 0.6 10*3/uL Normal 0.0-0.8 [facility] Comment on above: Performed By: #### C MP wRFX A1C, CBC #### [address] Monocytes/100 WBC (Bld) 6.5 % Normal . [facility] Comment on above: Performed By: #### C MP wRFX A1C, CBC #### [address] [place] [address] [place] Neutrophils (Bld) [#/Vol] 6.1 10*3/uL Normal 1.8-7.7 [facility] Comment on above: Performed By: #### C MP wRFX A1C, CBC #### [facility] [address] [place] [address] [place] Neutrophils/100 WBC (Bld) 67.1 % Normal . [facility] Comment on above: Performed By: #### C MP wRFX A1C, CBC #### [facility] [address] NRBC% 0.1 /100{WBC} Normal 0-0.5 [facility] Comment on above: Performed By: #### C MP wRFX A1C, CBC #### [facility] [address] Platelet mean volume (Bld) [Entitic vol] 8.7 fL Normal 6.3-10.7 [facility] Comment on above: Performed By: #### C MP wRFX A1C, CBC #### [facility] [address] [place] [address] [place] Platelets (Bld) [#/Vol] 249 10*3/uL Normal 150-450 [facility] Comment on above: Performed By: #### C MP wRFX A1C, CBC #### [facility] [address] [place] [address] [place] RBC (Bld) [#/Vol] 4.00 10*6/uL Normal 3.60-5.00 [facility] Comment on above: Performed By: #### C MP wRFX A1C, CBC #### [facility] [address] [place] [address] [place] WBC (Bld) [#/Vol] 9.1 10*3/uL Normal 3.8-11.6 [facility] Comment on above: Performed By: #### C MP wRFX A1C, CBC #### [facility] [address] [place] [address] [place] Creatinine [Mass/volume] in Serum or PlasmaOrdered By: Anju Lees on 04-17-2023 Creatinine [Mass/Vol] 1.01 mg/dL 0.60-1.20 [facility] ECG 12 lead ECGon 04-17-2023 ECG 12 lead ECG [facility] [place] [address] Electrocardiograph Report Signed Patient: Zachary Maynard MR#: [id number] : 1945 Acct:[id number] Age/Sex: 77 / F ADM Date: 04/17/23 Loc: PS Room: Type: [facility] Attending Dr: Anju Lees MD [...] previous ECGs available Confirmed by BAILEE [facility]IAS [facility] ([id number]) on 04/17/2023 3:12:20 PM Referred By: FREDDY Electronically Signed By:JASON MARIE MD [facility] Transcribed By: MUS Signed By Bonifacio Marie MD 04/17/23 1512 Normal [facility] Eosinophils Auto (Bld) [#/Vo l]Ordered By: Anju Lees on 04-17-2023 Eosinophils (Bld) [#/Vol] 0.3 10*3/uL 0.0-0.45 [facility] Eosinophils/100 WBC Auto (Bl d)Ordered By: Anju Lees on 04-17-2023 Eosinophils/100 WBC (Bld) 3.1 % . [facility] Erythrocyte distribution wid th Auto (RBC) [Ratio]Ordered By: Anju Lees on 04-17-2023 Erythrocyte distribution width (RBC) [Ratio] 16.3 % 11.9-15.3 [facility] Globulin Calc (S) [Mass/Vol] Ordered By: Anju Lees on 04-17-2023 Globulin (S) [Mass/Vol] 2.0 g/dL [facility] Glucose [Mass/volume] in Ser um or PlasmaOrdered By: Anju Lees on 04-17-2023 Glucose [Mass/Vol] 89 mg/dL 70-100 [facility] Hematocrit Auto (Bld) [Volum e fraction]Ordered By: Anju Lees on 04-17-2023 Hematocrit (Bld) [Volume fraction] 33.3 % 34.0-46.4 [facility] Hemoglobin [Mass/volume] in BloodOrdered By: Anju Lees on 04-17-2023 Hemoglobin (Bld) [Mass/Vol] 11.1 g/dL 11.8-15.4 [facility] Leukocytes [#/volume] correc lovely for nucleated erythrocytes in Blood by Automated counOrdered By: Anju Lees on 04-17-2023 WBC corrected for nucl RBC Auto (Bld) [#/Vol] 9.1 10*3/uL 3.8-11.6 [facility] Lymphocytes Auto (Bld) [#/Vo l]Ordered By: Anju Lees on 04-17-2023 Lymphocytes (Bld) [#/Vol] 2.1 10*3/uL 1.00-4.8 [facility] Lymphocytes/100 WBC Auto (Bl d)Ordered By: Anju Lees on 04-17-2023 Lymphocytes/100 WBC (Bld) 22.7 % . [facility] MCH Auto (RBC) [Entitic mass ]Ordered By: Anju Lees on 04-17-2023 MCH (RBC) [Entitic mass] 27.9 pg 24.7-34.3 [facility] MCHC Auto (RBC) [Mass/Vol]Or dered By: Anju Lees on 04-17-2023 MCHC (RBC) [Mass/Vol] 33.4 g/dL 32.0-35.0 [facility] MCV Auto (RBC) [Entitic vol] Ordered By: Anju Lees on 04-17-2023 MCV (RBC) [Entitic vol] 83.3 fL 80-100 [facility] Monocytes Auto (Bld) [#/Vol] Ordered By: Anju Lees on 04-17-2023 Monocytes (Bld) [#/Vol] 0.6 10*3/uL 0.0-0.8 [facility] Monocytes/100 WBC Auto (Bld) Ordered By: Anju Lees on 04-17-2023 Monocytes/100 WBC (Bld) 6.5 % . [facility] Neutrophils Auto (Bld) [#/Vo l]Ordered By: Anju Lees on 04-17-2023 Neutrophils (Bld) [#/Vol] 6.1 10*3/uL 1.8-7.7 [facility] Neutrophils/100 WBC Auto (Bl d)Ordered By: Anju Lees on 04-17-2023 Neutrophils/100 WBC (Bld) 67.1 % . [facility] No Panel InformationOrdered By: Anju Lees on 04-17-2023 Estimated GFR (CKD-EPI) 56.627 mL/Min [facility] Creatinine Clearance (Chem N/A [facility] Nucleated erythrocytes [Pres ence] in Blood by Automated countOrdered By: Anju Lees on 04-17-2023 Nucleated RBC Auto Ql (Bld) 0.1 /100{WBC} 0-0.5 [facility] Platelet mean volume Auto (B ld) [Entitic vol]Ordered By: Anju Lees on 04-17-2023 Platelet mean volume (Bld) [Entitic vol] 8.7 fL 6.3-10.7 [facility] Platelets Auto (Bld) [#/Vol] Ordered By: Anju Lees on 04-17-2023 Platelets (Bld) [#/Vol] 249 10*3/uL 150-450 [facility] Potassium [Moles/volume] in Serum or PlasmaOrdered By: Anju Lees on 04-17-2023 Potassium [Moles/Vol] 4.2 mmol/L 3.5-5.1 [facility] Protein [Mass/volume] in Ser um or PlasmaOrdered By: Anju Lees on 04-17-2023 Protein [Mass/Vol] 5.7 g/dL 6.4-8.9 [facility] RBC Auto (Bld) [#/Vol]Ordere d By: Anju Lees on 04-17-2023 RBC (Bld) [#/Vol] 4.00 10*6/uL 3.60-5.00 [facility] Serum or plasma albumin/glob ulin mass ratioOrdered By: Anju Lees on 04-17-2023 Albumin/Globulin [Mass ratio] 1.9 {ratio} [facility] Serum or plasma anion gap de terminationOrdered By: Anju Lees on 04-17-2023 Anion gap [Moles/Vol] 10.3 mmol/L 6.0-15.0 [facility] Sodium [Moles/volume] in Ser um or PlasmaOrdered By: Anju Lees on 04-17-2023 Sodium [Moles/Vol] 140 mmol/L 136-145 [facility] Urea nitrogen [Mass/volume] in Serum or PlasmaOrdered By: Anju Lees on 04-17-2023 Urea nitrogen [Mass/Vol] 23 mg/dL 7-25 [facility] WBC Auto (Bld) [#/Vol]Ordere d By: Anju Lees on 04-17-2023 WBC (Bld) [#/Vol] 9.1 10*3/uL 3.8-11.6 [facility] XR hand RT min 3V*on 024 XR hand RT min 3V* [facility] [place] [address] XRay Report Signed Patient: Zachary Maynard MR#: [id number] : 1945 Acct:[id number] Age/Sex: 77 / F ADM Date: 04/08/23 Loc: [facility] Room: Type: [facility] Attending Dr: Anju Lees MD [...] Sammie Arizmendi M.D.04/08/2023 1:57 PM Dictation Location: [place] [address] Transcribed By: [facility] 04/08/23 1357 Dictated By: Sammie Arizmendi MD 04/08/23 135 Signed By: 04/08/23 [facility]7 [facility] ECHOCARDIO M/2D COMPLETEon 0 05-29-2022 ECHOCARDIO M/2D COMPLETE Patient: ZACHARY MAYNARD Exam Date: 05/29/2022 : 1945 Gender:F Ordering : DR ADINA BUNCH . Admission #: [id number] Family : Order #: [id number] CLICK HERE TO VIEW EXAM ECHOCARDIOGRAM REPORT [...] Shore M.D. on 05/30/2022 at 18:32 Normal [facility] MRI BRAIN WO CONon MRI BRAIN WO CON EXAMINATION: MRI BRA IN WO [facility], 05/29/2022 10:52 AM EDT HISTORY: Syncope [...] RENATA GAYTAN Date: 2022-05-29 13:51 Normal [facility] US CAROTID ART BILon 023 US [...] RENATA GAYTAN Date: 2022-05-29 12:55 Normal [facility] Covid-19 PCR (CVDTB)on 01-24 SARS-CoV-2 (COVID-19) RNA ARMIN+probe Ql (Unsp spec) Not detected Normal NOT DETECTED [facility] Comment on above: Result Comment: This test is not yet approved or cleared by the [place] FDA. When there are no FDA-approved or cleared tests available, and other criteria are met, FDA can make tests available under an emergency access mechanism called an Emergency Use Authorization (EUA). The EUA for this test is supported by the [employer] of Health and Human Service's (HHS's) declaration [...] consistent with SARS-CoV-2. Performed By: #### [facility] #### [facility] [address] [place] [address] Dr. Samuel Kang Ambulatory Clinical Summaryo n 09-11-2020 Ambulatory Clinical Summary {[id number] }[id number] Normal [facility] Patient Educationon 09-12-19 21 Patient [...] in your pocket, or use a mobile monroe or website. Some programs will calculate calories [...] could (more content not included)... Normal [facility] Urology Office/Clinic Noteon 09-11-2020 Urology Office/Clinic [...] Nunez MD, VICTORINO Loya In 6 months [phone] Additional Instructions: Patient Education Calorie Counting for [...] SARS-CoV-2 (COVID-19) mR (more content not included)... [facility] Comment on above: Result Comment: Elec tronically Signed By: Thuan ARMANDO MD\.br\Date and Time Signed: 09/11/20 16:11 EDT\.br\Electronically Co-Signed By: Anastasia Cabral\.br\Date and Time Co-Signed: 09/11/20 16:08 EDT Ambulatory Clinical Summaryo n 08-08-2020 Ambulatory Clinical Summary {[id number] }[id number] [facility] Patient Educationon 08-09-19 Patient Education Urology Urinary [...] stimulation). ? For women, using a medical i d sales to prevent urine leaks. This is a [...] after experiencing incontinence. General instructions ? Take wyam-ykv-ltnoils and prescription medicines only as (more content not included)... Normal [facility] Urology Office/Clinic Noteon 08-08-2020 Urology Office/Clinic Note Chief Complaint 2 week PO This is a post postop visit following cystocele repair. Overall the patient is doing quite well. She has had some bleeding initially after surgery but that is almost all completely stopped. She is back to most of her normal physical activity. The cystocele has not returned. [facility] Staff Pt is here for a 2 [...] Jude Farias, URO [address] [place] [id number]- Additional Instructions: 1mos. f/u Patient Education Urinary [...] of urethral (more content not included)... Normal [facility] Comment on above: Result Comment: Elec tronically Signed By: Tushar Nunez MD, Jude Farias\.br\Date and Time Signed: 08/08/20 11:28 EDT\.br\Electronically Co-Signed By: Kisha Stevens MA\.br\Date and Time Co-Signed: 08/08/20 11:15 EDT Operative Reporton Operative Report [id number]#1.00CD: 127 [facility] Pathology Noteon 07-27-2020 Pathology Note [id number]#1.00CD :127 [facility] Comment on above: Result Comment: Elec tronically Signed By: Tushar Nunez MD, Jude Farias\.br\Date and Time Signed: 08/07/20 11:22 EDT ECG 12-Leadon 07-24-2020 ECG 12-Lead [id number]#1.00CD: 127 [facility] ED Note-Physicianon 07-25-19 ED Note-Physician [id number]#1.00CD:1 27 [facility] Lab Reportson 07-24-2020 Lab Reports [id number]#1.00CD: 127 [facility] Lab Reports [id number]#1.00CD: 127 [facility] RAD - MISCon 07-24-2020 RAD - MISC [id number]#1.00CD: 127 [facility] Insurance Correspondence Off iceon 07-20-2020 Insurance Correspondence Office [id number]#1.00CD: 127 [facility] Operative Reporton Operative Report [id number]#1.00CD: 127 [facility] Physician Orderon 07-12-2020 Physician Order [id number]#1.00CD: 127 [facility] Pre-Authorization for Medica l Treatmenton 07-12-2020 Pre-Authorization for Medical Treatment [id number]#1.00CD :127 [facility] Ambulatory Clinical Summaryo n 07-11-2020 Ambulatory Clinical Summary {[id number] }CD:[id number] [facility] Patient Educationon 07-12-19 Patient Education Obstetrics [...] including vitamins, herbs, eye drops, creams, and dwer-rrw-dvpivlm medicines. ? Any problems you or family [...] diabetes medicines or blood thinners. ? Taking ckmx-jcm-zqldbcc medicines, vitamins, herbs, and supplements. ? Taking [...] to r (more content not included)... [facility] Urology Office/Clinic Noteon 07-11-2020 Urology Office/Clinic Note Chief Complaint 3 week follow up This patient is a 75-year-old female with a history of a grade 2 midline cystocele. She is here today to discuss treatment options. She does have some symptoms of stress incontinence. She underwent cystoscopic examination with dilation of her urethra on May 08 2020. [facility] Staff Zachary is a 75 y.o. [...] urine and/or bladder capacity by US- non-imaging 65759 Urnls Dip Stick Auto w/o Microscopy POC 64887 Urology Procedure Order 2. Cystocele with prolapse [...] Farias, [facility] [address] [place] [address]- Additional Instructions: Patient Education Urethral Vaginal Sling ILibby, personally scribed for Dr. Finley on 07/11/2020 [...] UTI Hypertensio (more content not included)... Normal [facility] Comment on above: Result Comment: Elec tronically Signed By: Tushar Nunez MD, Jude Farias\.br\Date and Time Signed: 07/11/20 14:49 EDT\.br\Electronically Co-Signed By: Libby Chambers MA\.br\Date and Time Co-Signed: 07/11/20 14:30 EDT Ambulatory Clinical Summaryo n 06-20-2020 Ambulatory Clinical Summary {[id number] }CD:[id number] [facility] Patient Educationon 06-21-19 Patient Education [...] including vitamins, herbs, eye drops, creams, and knph-ixf-xtumhyo medicines. ? Any problems you or family [...] tells you to take them. ? Taking carz-jpi-zqqznol medicines, vitamins, herbs, and supplements. General instructions [...] these instructions at home: Medicines ? Take yhem-ipc-qgzketr and prescription medicines only as told by [...] to prevent or treat constipation: ? Take zbvy-cyl-deuggzh or prescription medicines. ? Eat foods that [...] pa (more content not included)... Normal [facility] Urology Office/Clinic Noteon 06-20-2020 Urology Office/Clinic [...] Urnls Dip Stick Auto w/o Microscopy POC 11521 I have reviewed the previous health record information and history for this patient from Dr. Finley Follow-up With When Contact Information Tushar Nunez MD, Jude Farias, [facility] [address] [place] [address]- Additional Instructions: 2 weeks Patient Education Urethral [...] mixed type (more content not included)... Normal [facility] Comment on above: Result Comment: Elec tronically Signed By: Jude Finley Jr., MD\.br\Date and Time Signed: 06/20/20 14:36 EDT\.br\Electronically Co-Signed By: Maria Del Carmen Hernandez MA\.br\Date and Time Co-Signed: 06/20/20 14:24 EDT Coding Summary.on 06-16-2020 Coding Summary. CD:[id number]:[id number] Gh0b Ww+PGhlYWQ+VH6EICSkQ67ml CZyvV2WT0pQXX8FMGYUNUVQB O6NBN5epGM1FQnvW0HwevTj AxjoxWBvGC76BWn9DDF6xDhr HMbmhL2ycHSfW0c4YdUdSU26 zV97NVnsCWJmVdY4IaOjmzqu bWFy L4erMiTbpDJtAyf+PHRhYmxl IHdpZHRoPScxMDAlJyBzdHls DN1aXo5dXLDaFSGkiAhxfIUd OiBj k5vzPJXyIGqnPT1lxKliZ5Ua uOG4VKWoo7z5Cz92dWV+PHRk STV4zFvbITqyz011XuYfj4dy IDM3 dZFjHDreUFR4P79er1Y6AGDm CAWqXGK8kZF7tU3ntYqekkiq X0ExnTDiKoU8HXI0zJEdiN0x bGln ozdfyE0vIza+Z11AKT4SMKTT VT4XSoi3I1HsOwcixEG+PC90 JSPxLK59mKMulTZcf9brhLo0 JzEw NQDaHQO8gPemKKpys5GfKWHc D32ztRQsm5V2TBOqbNuqaBKr VwBozNN9wR0yJDfxivpml8zb dzsn Tfkyb6ivhf21pM55T06jLApj THDsNQC5KTDkMFUwwIezrj3a rN0dQr9+MDsmo8qxl7uzyZj0 IjIw AKBhobZzkWnzYAI4e9JeQe82 P3LzsJbjk9WvIjm7ae00aGVx l8B4fNI0UYmwQYBxuW2zZHot ZnQ6 LXXjMuKxcC08nIAyTBeuVo5r kMeyfYogCD5mIJPimtowLHFq uS8zMWCbcEQhtQoyAS7lMFPg bjtm c375QbEiUZG0FVXtvNBvJ5Kg jB2dZeZcWQBsESKaR7RntAOo QKfwC922QVpvQxH4IBPzvfFd Y2Fs PLMpcZdyAaT1r4L6St7Ie4Ni hmbaZZW6OFvrQJV6VoDkHaIb CiA0O7UxXnh7OSArqBalHS8l J3Bh WRMynijireyrwIT7EJDaTHBc sR16iRAfTFiaMf8ej7Y3t005 ICGtPHMemQ22Wh2qgRuuSDBs dCBU bG3feqkas6lmzqaaJuYeQBLa RYu5CKo8ISEjhGexGiCxWRC5 AeM3ZOY8pMLltN5mfTfzyqpg dG9w Oyc+W19daM5aQQC2RUI8drqn DHJuvfHvEG19BX68R3VyKvio dGFibGU+EATlyhFwsOjvAG3m YmFj h7uoo1YsBIqhR0PwSEUtVBlx Pbn6WMZrVES4lOP1wQ4gSMWy VYqso1F0oNC2L4FkwxImxu0l b2xs JACqRYenN45lmIVzf5M2AEDl uVG2PAXhnUwfOzGirD22Cbx+ SJKkdZyuq4YbTqyag0lto6uj dGg9 ZcKmVFXobpViuDyjELW2m3Ug Ji81H86qGVxfYMRdZKEkDVEy TGOwlEzzlh2lbB7rJi4+PGNv bCB3 yEN2eS0xKQPoXuY7FRaaF076 VhMmeKCiJhfwh2spz1pbqDt6 QmZwRJNculVeuYhxBFI5n5Kh Lz48 U90cWCdmQPZpQIHnQNDiTPSj cOlnfz7whD9yDu9+MO4ev8hm kt75mJ71xNL+TVVsRPX9cVta PSdw JUQbbJ9eFNyaVsL9MGVoPjWj wD25gQByUBkaFm0ztXdpfNgg NT8lLABgaamph047XnYhw9wp IDEw vWGtZQpsGKV0E77pr5H9WESa EBFzLNC9iOW0lL4rcGoghhyt bGVmdDsgdmVydGljYWwtYWxp Z246 IHRvcDsnPlBhdGllbnQgTmFt SIy3T7DeDrf6QAEvuKygDE9i fKGvPHrlDg2zyGphgZgoBA8e NTBp mgpoz752HfKzw2rxMNNkwARu MRiqVUR1P63ek2H3GUFcEXWf UHL3gFV2aO9bpDowwosqaGMb dDsg foFoxFtnQNjaKHqxO501MFUh mAnmMcCvcwJxIWKlcVS6QM51 MC53iNYzx9Q9fLB6L7FpIACz bmct htpknVU3KFJdAAIrxG11Cy2t oZybKp5zRDPzXQX2EDPfqHLb S3KktD3yEaMySOMhHCIfF9Mo eHQt EYqvV770LOyeYoJ9YZZelbPl M1ReULNboGhtFeU0f0M3Jl5C M5W9UD43IN17zCTzw5J3bBJ3 J3Bh SOKnjxtpfofftGL4URBvCZXx zZ03Lo3zjGqxUp8wOXIyRTS5 LSKtoZVoI8QjmR6wOhKvIFLb MDAw J8QyxJSeDDgrA269HMtvBmI1 KXFbzbKqD2QgUKShrGzaWsB4 h1F9Zi9TSWa0OH57JE27lACg c3R5 sRU0P6HpWDVzshtpjozcqZD8 BQUvAVItjE56Ak0eoKhtRt0o GBIvVLX5SXNinHYkJ5BvaR0z OiAj AOVbSWZiT0NvmFYfJJsmS221 ENigKkC5TPAdxiRlI2RzASPp oNehUfD6v5E1Zu5RQZMsPD09 IFR5 tFW8IN63PN59U3MhUtvgfBJa bGU+PHRhYmxlIHdpZHRoPScx VEVvNgNkaFasEY6iOp5tSBNy LWNv aQuldFGxJhBcj1vxFERmLQtm DX9cuKguA0JahPK4VQNgd1b4 Gm65M23uV0YmaVG+PGNvbCB3 aWR0 hD2uYmZvLiJ8DUykM901KeNr sMCeRtysu0nyf7tulSa3YqK4 FRLcszYokHrdRLE6m3XjGv48 Y29s IHdpZHRoPSIxNSUiIHZhbGln am8ynQ5dQe5+JPSarBF7iKY3 lA2hMzLcDhO9XTnlV140EdCj cCIv Dqrnv7dep9ldlIq7SbCoSEDc wjHauQnoNRG1a0MpZn19G3Xh hZtlr8NzOuk2gn14nHPwt2T0 bGU9 V8EyJBLyoqfnnNSejWhdYX7w DCMfjrwtECRxrN0gORXcE1v7 MhKlNcY2IWaoY4BtbaR6LZFv cHQg JKmiCVY3R49mo3H4GZXmESSf NTE8aSK6tW2jeJwujaqvmWQc yAnrgzHgaAogIPqvJEgwT442 IHRv cDqaMDLynP8mHHHbdWQmcSyn RZ1kCHOrbmfjStlRV4zEOW9U LCBHUkVUVEEgQTwvdGQ+PHRk IHN0 vZjrJTheGMKyaQ2xIHHlA4z6 NbFfNtU5JDwkH1LhARMrdhqy Mr68vV7rKjMpKpW8KDhfG6Zo bnQ6 XOSvaPKgKHvuZGP3P79dm7O7 KAMuBGAsMWK2fDR9nS1hfJru bjogbGVmdDsgdmVydGljYWwt YWxp N744EPDpmOirEuZbLdIlAdT3 QUY4T6BrDbe6FOKjgKcrTV4v qJDxPAsqWx2saZerbXqpPJ9x NTBp demaINWstR4kOUCmbNVprMph GA0lBLZncutgk565OzFhKYB1 HGQrqGClM5AkfK0yMtGuJXSc MDAw Y6RsmGFeVMdfC516WBkfKdP4 IJZsfeAuS2YgPRKghWtyJyC7 j4Y4Ck01CoOGCLYzjcyfiZF+ PHRk UBX3nFffPUrxJZDnlY6vOMFy F1w9BbIeVmB7PRpyE5AhUYNr wplbOv90rN6dXfQaJiP1XJkx O2Zv gvA3RRLszDKgLDdfZQT0H68y n0Y0DWUfYGPiCXG0aKJ2jE2a bGlnbjogbGVmdDsgdmVydGlj YWwt PHpvP910FPBblCpxSiKwwHQk ZTwvdGQ+XQZdTIU8kXooIRbw IDQujU7wSXJqW6z1XtNkElI5 MGlu E3IsCVAsugdxEq98fA9iDyAh KmE6VIdsO9IvaiI6IYTcuBIh UGcmLMQ6Z60es0E3DQGyGVEw MDA7 lUQ1bX6sjIwqenjjiVQrkBox tmDqvUvsDQotFWshA720YIAt fAhlYi40vYTurKkjexM9O5Fp Pjwv dHI+EU04FMAcOY49gJKxzMXw g3jugKs6WsSzHVMwKJQ9rDwj WAqup0NnAKAtR49tvSUtl0A4 IGNv aDlarLNlBpQroFD0oM8gUZur hstdy5hsshxsOvhgp2wdnn84 gX51I96eYRfrMCGyZSPjKNXe IHZh cEakuh2vmR9sBl8+PGNvbCB3 pVS3rL1lViUcIhF9NHcfO533 LmTgaZEhOrsmq1zvv2ccjVb0 IjIw OIMjflQyaHynJRK3p0YeFl56 L42iMPjpDTRcSQCcXQNqLZCm kQykzd0czT0sUi6+DR5pb6go cm91 gO94gSI+EKYmARS3dNjbKXry UMOpuF2bBTeaUeK8VLVvPwXw nD42zMEyQNpfOz5mtUkadRah MC4w YLGsjxdtd174EqFqq0guIMHq oUSuSBurSRU2L45nb3L0WMQl IBVyAPH2nTZ0bK8ahBrbbtkj bGVm vNymuxScjOyeAPvgUXtgV314 TJPbrVtwCbPipCVlA6kudnQG WP9fDrrieYI+LIShQPE3zIbd PSdw MBUeyQ4wNIUbB1m2PiZzKcA4 HEuvT6HshgW8PMKjxGJyUUYb sELLeY1cwvclz3fdnoioUjBu MDAw YLk7HSm4VLMzrUqdYmAeFPR5 UxR9NRY6rURacS6ilYmlgcko eX0zNyu+RklOOjwvdGQ+PHRk IHN0 eJhuUHbvQDIihG7lRIXeM6c8 AxWaEmY0EHkfA7XxdnZ4LHDo cEYhEUWjnRNKeW7osnjvr4ig cjog KgDbZGUmBLa4OBs8OBMwrLsb NvLxYGG4NgP2IDK1aWJhbW8j vMhhwikjaV1xOrp+TVJOOjwv dGQ+ AXXdBIU1sZorQPbbCTBcgO1b FAQkQ6m4LxCkEfI9JWwfV9Sj hyI5WOPkcALlWTLsxPFTkT2l cztj w5cwrjigCrJvZGIySCf2TMk4 YNMlrEmhObYoFZT7TiW7SOG8 wCDtdP3mfQodsglejT4oYdd+ UGF5 OTY8SN00KU76H2McGlhfpOSx bGU+PHRhYmxlIHdpZHRoPScx LZTeYwPcmYedSO8hUn2vOYDx LWNv bGxh (more content not included)... [facility] Consent for Procedure/Surger yon 06-15-2020 Consent for Procedure/Surgery [id number]#1.00CD :127 [facility] Consent for Treatmenton 05-26 Consent for Treatment [id number]#1.00CD: 127 [facility] Discharge Instructionson Discharge Instructions [id number]#1.00CD :127 [facility] IntraOperative Documentson 0 06-15-2020 IntraOperative Documents [id number]#1.00CD :127 [facility] Main OR Intraoperative Recor don 06-15-2020 Main OR Intraoperative Record IntraOp Document Type FTURO Summary Primary Physician: Jude Finley Jr., MD Finalized Date/Time: 06/15/20 15:02:47 Pt. Name: ALEYDA ZACHARY GrimesO.B./Sex: 1945 Female Med Rec #: [id number] Physician: Jude Finley Jr., MD Financial #: [id number] Pt. Type: O Room/Bed: / Admit/Disch: 06/15/20 13:40:05 - Institution: Case Times FTURO Entry 1 Patient Times In Room 06/15/20 14:48:00 Out Room 06/15/20 15:02:00 Procedure Times Start 06/15/20 14:50:00 Stop 06/15/20 14:52:00 Anesthesia Times Last Modified By: Sirisha Manuel RN 06/15/20 15:02:42 Case Attendance FTURO Entry 1 Entry 2 Entry 3 Case Attendee Jude Finley Jr., MD TECHNICAL WRITER AND EDITOR, Sirisha Campbell RN Role Performed Surgeon - Primary Scrub - Primary Yarn Winder - Primary Time In 06/15/20 14:48:00 06/15/20 14:48:00 06/15/20 14:48:00 Time Out 06/15/20 15:02:00 06/15/20 15:02:00 06/15/20 15:02:00 Procedure CYSTOSCOPY LOCAL(.) CYSTOSCOPY LOCAL(.) CYSTOSCOPY LOCAL(.) Comments Last Modified By: Sirisha Manuel RN, RN, Sirisha Naqvi RN 06/15/20 15:02:43 06/15/20 [...] Nunez MD, Jude Farias, Verified (If Participants [place], Applicable) Sirisha Manuel RN Time [...] By: Sirisha Manuel RN 06/15/20 15:02 Normal [facility] Main OR Preoperative Recordo n 06-15-2020 Main OR Preoperative Record Holding Area Document Type FTURO Summary Primary Physician: Jude Finley Jr., MD Finalized Date/Time: 06/15/20 14:34:27 Pt. Name: ALEYDA ZACHARY Srinath Cordero/Sex: 1945 Female Med Rec #: [id number] Physician: Jude Finley Jr., MD Financial #: [id number] Pt. Type: O Room/Bed: / Admit/Disch: 06/15/20 [...] 14:25 Sirisha Manuel RN 06/15/20 14:34 Normal [facility] Operative Reporton Operative Report Patient: [...] urine. The Urethra was dilated to: 24 Greek w/ sounds. Devices Implanted: None. Removal: Cystoscope is removed, The patient tolerated it well. Postoperative Information Discharge: Patient is discharged home with antibiotic coverage, Follow up arranged, Office visit will be planned to make arrangements for repair of cystocele.. [facility] Comment on above: Result Comment: Elec tronically Signed By: Tushar Nuenz MD, Jude Farias\.andrew\Date and Time Signed: 06/15/20 14:59 EDT Pre-Authorization for Medica l Treatmenton 06-13-2020 Pre-Authorization for Medical Treatment [id number]#1.00CD :127 [facility] Ambulatory Clinical Summaryo n 06-12-2020 Ambulatory Clinical Summary {[id number] }CD:[id number] [facility] Patient Educationon 06-13-19 Patient Education [...] stimulation). ? For women, using a medical i d sales to prevent urine leaks. This is a [...] after experiencing incontinence. General instructions ? Take vume-but-drwafzb and prescription medicines only as (more content not included)... [facility] Urology Office/Clinic Noteon 06-12-2020 Urology Office/Clinic Note Chief Complaint Patient is here for a follow up to [facility] for ball like object HPI Staff Lucas is a 75 y.o. female here for follow up to [facility] for bladder hanging out, patient insists on planning surgery. Previous Dx: bladder infection, bladder outlet obstruction, dysuria, flank pain, gross hematuria, history of UTI, retention of urine, urethral stricture. 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 Patient was seen at [place] [facility] on 06/07/20 for a ball like [...] When Contact Information Jude Finley Jr., MD [phone] Additional Instructions: Patient Education Urinary Incontinence IAnastasia, personally scribed for Dr. Finley on 06/12/2020 10:24:21. . Documentation recorded by the Anastasia rdz accurately reflects the services(s) I performed and decisions made by me. Authenticated by Dr. Finley on 06/12/2020 10:28:20. Problem List/Past Medical History Ongoing Arthritis Asthma Bladder infection Bladder outlet obstruction COPD mixed type Cystocele with prolapse Dysuria Flank pain Gross hematuria (more content not included)... [facility] Comment on above: Result Comment: Elec tronically Signed By: Jude Finley Jr., MD\.br\Date and Time Signed: 06/12/20 10:30 EDT\.br\Electronically Co-Signed By: Anastasia Cabral\.br\Date and Time Co-Signed: 06/12/20 10:24 EDT Coding Summary.on 05-23-2020 Coding Summary. CODING DATE: 021 FINAL [facility] STATUS: Home (Routine DC) PAYOR: Medicare [...] Ryann Villegas Date Saved: 05/23/2020 09:34 am [facility] Consenton 05-22-2020 Consent [id number]#1.00CD: 127 [facility] Consent for Procedure/Surger yon 05-18-2020 Consent for Procedure/Surgery [id number]#1.00CD :127 [facility] Consent for Treatmenton 04-25 Consent for Treatment [id number]#1.00CD :127 [facility] Consent for Treatment [id number]#1.00CD: 127 [facility] Discharge Instructionson Discharge Instructions [id number]#1.00CD :127 [facility] IntraOperative Documentson 0 05-18-2020 IntraOperative Documents [id number]#1.00CD :127 [facility] Main OR Intraoperative Recor don 05-18-2020 Main OR Intraoperative Record IntraOp Document Type FTURO Summary Primary Physician: Tushar Nunez MD, Jude Farias Finalized Date/Time: 05/18/20 14:11:35 Pt. Name: MARIAAM MAYNARD D.O.B./Sex: 1945 Female Med Rec #: [id number] Physician: Tushar Nunez MD, Jude Farias Financial #: [id number] Pt. Type: O Room/Bed: / Admit/Disch: 05/18/20 [...] MD, Jude Glasgow RN, ETHANOR, Luz Cormier [facility], [facility] Role Performed Surgeon - Primary Yarn Winder - Primary Scrub - Primary Time In 05/18/20 13:57:00 05/18/20 13:57:00 05/18/20 13:57:00 Time Out 05/18/20 14:03:00 05/18/20 14:03:00 05/18/20 14:03:00 Procedure CYSTOSCOPY LOCAL WITH CYSTOSCOPY LOCAL WITH CYSTOSCOPY LOCAL WITH URETHRAL DILATION(.) URETHRAL DILATION(.) URETHRAL DILATION(.) Comments Last Modified By: Myah MELGAR, Luz MARCELINO RN, ETHANOR, Luz Glasgow RN, RYLAND, Luz Flowers 05/18/20 14:01:23 05/18/20 14:01:23 05/18/20 14:01:23 Surgical Procedures FTURO Entry 1 Procedure Description Procedure CYSTOSCOPY LOCAL WITH Modifiers . URETHRAL DILATION Surgeon Description CYSTOSCOPY LOCAL WITH URETHRAL DILATION Primary Procedure Yes Primary Surgeon Jude Finley Jr., MD Start 05/18/20 13:58:00 Stop 05/18/20 13:59:00 Anesthesia [...] RYLAND Glasgow RN, Lou Ann 05/18/20 14:01 RYLADN Glasgow RN, Lou Ann 05/18/20 14:02 RYLAND Glasgow RN, Lou Ann 05/18/20 14:11 [facility] Main OR Preoperative Recordo n 05-18-2020 Main OR Preoperative Record Holding Area Document Type FTURO Summary Primary Physician: Jude Finley Jr., MD Finalized Date/Time: 05/18/20 13:59:17 Pt. Name: MARIAMA MAYNARD Srinath Cordero/Sex: 1945 Female Med Rec #: [id number] Physician: Jude Finley Jr., MD Financial #: [id number] Pt. Type: O Room/Bed: / Admit/Disch: 05/18/20 [...] RYLAND Glasgow RN, Lou Ann 05/18/20 13:59 [facility] Operative Reporton Operative Report Patient: Karl [...] urine. The Urethra was dilated to: 28 Greek w/ sounds. Devices Implanted: None. Removal: Cystoscope is removed, The patient tolerated it well. Postoperative Information Discharge: Patient is discharged home with antibiotic coverage, Follow up arranged. [facility] Comment on above: Result Comment: Elec tronically Signed By: Tushar Nunez MD, Jude Farias\.br\Date and Time Signed: 05/18/20 14:02 EDT Ambulatory Clinical Summaryo n 05-11-2020 Ambulatory Clinical Summary {[id number] }CD:[id number] [facility] Patient Educationon 05-12-19 21 Patient Education [...] It is (more content not included)... Normal [facility] Urology Office/Clinic Noteon 05-11-2020 Urology [...] voiding. She thinks she needs another dilation. [facility] Staff Pt is here due to decrease [...] Will order Local anesthesia. ABX sent to [facility] in [place]. 2. Retention of urine (R33.9: Retention of [...] procedure, # 2 cap(s), Refills(s) 0, Pharmacy: [id number], 163, cm, 05/11/20 8:31:00 EDT, Height/Length Dosing, 64.2, kg, 05/11/20 8:31:00 EDT, W... Measure Post Void residual urine and/or bladder capacity by US- non-imaging 37739 Urnls Dip Stick Auto w/o Microscopy POC 49128 I have reviewed the previous health record information and history for this pt. from Dr. Finley. Follow-up With When Contact Inf (more content not included)... [facility] Comment on above: Result Comment: Elec tronically Signed By: Tushar Nunez MD, Jude Farias\.br\Date and Time Signed: 05/11/20 10:45 EDT\.br\Electronically Co-Signed By: Kisha Stevens MA\.br\Date and Time Co-Signed: 05/11/20 08:53 EDT [facility] Clinical Summary {[id number] }CD:[id number] [facility] Patient Education 01-04-20 Patient Education Obstetrics and Gynecology Acute [...] to a urinary tract infection. Only take elss-pjh-cttovos or prescription medicines for pain, discomfort, or fever as directed by your caregiver. SEEK IMMEDIATE MEDICAL CARE IF: You develop chills, fever, or show signs of generalized illness that occurs prior to seeing your caregiver. Document Released: 02/09/2007 Document Revised: 05/04/2012 Document Reviewed: 01/12/2010 ExitCare? Patient Information ?2013 [employer]. [facility] Urology Office/Clinic Noteon 01-04-2020 Urology Office/Clinic [...] Urnls Dip Stick Auto w/o Microscopy POC 00886 3. Dysuria (R30.0: Dysuria) Mild burning w/ urination. I have reviewed the previous health record information and history for this pt. from Dr. Finley. Follow-up With When Contact Information Tushar Nunez MDJude [address] [place], [place] [address], [place] [address]- Additional Instructions: 1mos. w/ pVR Patient Education [...] mg T (more content not included)... Normal [facility] Comment on above: Result Comment: Elec tronically Signed By: Jude Finley Jr., MD\.br\Date and Time Signed: 01/04/20 12:26 EST\.br\Electronically Co-Signed By: Kisha Stevens MA\.br\Date and Time Co-Signed: 01/04/20 12:01 EST Operative Reporton 0 Operative Report [id number] :127 Normal [facility] Cult,Bloodon 10-18-2019 Cult,Blood Specimen Description .BLOOD Special Requests 3ML LT A.C. Culture NO GROWTH 6 DAYS Report Status FINAL 10/18/2019 [facility] Comment on above: Performed By: #### C DP, CP, LIP, TROPI, LIPRF, GLYHGB #### [facility] [employer] [address] [place] [address] [id number] [employer]: Brandon Anaya MD Cult,Blood Specimen Description .BLOOD Special Requests back lt arm 3ml Culture NO GROWTH 6 DAYS Report Status FINAL 10/18/2019 [facility] Comment on above: Performed By: #### C DP, CP, LIP, TROPI, LIPRF, GLYHGB #### [address] [id number] [employer]: Brandon Anaya MD Cult,Urineon 10-18-2019 Cult,Urine Specimen Description .CLEAN CATCH URINE Special Requests NOT REPORTED Culture STAPHYLOCOCCUS SPECIES, COAGULASE NEGATIVE >[id number] CFU/ML Report Status FINAL 10/17/2019 SUSCEPTIBILITY Organism [...] REPORTED Trimethoprim/Sulfa 20 SUSCEPTIBLE Vancomycin 1 SUSCEPTIBLE [facility] Comment on above: Performed By: #### C DP, CP, LIP, TROPI, LIPRF, GLYHGB #### [address] [id number] [employer]: Brandon Anaya MD Basic Metab w/rfx MGon 10-15 (cont.) [facility] Comment on above: Result Comment: Aver age GFR for 70 or more years old: 75 mL/min/1.73sq m Chronic Kidney Disease: <60 mL/min/1.73sq m Kidney failure: <15 mL/min/1.73sq m eGFR calculated using average adult body mass. Additional eGFR calculator available at: http://[email or web address] LABS/multiple_crcl_2012.htm Performed By: #### C DP, CP, LIP, TROPI, LIPRF, GLYHGB #### [facility] [employer] [address] [place] [id number] [employer]: Brandon Anaya MD Anion gap [Moles/Vol] 13 mmol/L Normal 9-17 [facility] Comment on above: Performed By: #### C DP, CP, LIP, TROPI, LIPRF, GLYHGB #### [address] [id number] [employer]: Brandon Anaya MD Calcium [Mass/Vol] 8.6 mg/dL Normal 8.6-10.4 [facility] Comment on above: Performed By: #### C DP, CP, LIP, TROPI, LIPRF, GLYHGB #### [address] [id number] [employer]: Brandon Anaya MD Chloride [Moles/Vol] 97 mmol/L Low 98-107 [facility] Comment on above: Performed By: #### C DP, CP, LIP, TROPI, LIPRF, GLYHGB #### [address] [phone] [employer]: Brandon Anaya MD CO2 [Moles/Vol] 25 mmol/L Normal 20-31 [facility] Comment on above: Performed By: #### C DP, CP, LIP, TROPI, LIPRF, GLYHGB #### [facility] [employer] [address] [place] [id number] [employer]: Brandon Anaya MD Creatinine [Mass/Vol] 0.42 mg/dL Low 0.50-0.90 [facility] Comment on above: Performed By: #### C DP, CP, LIP, TROPI, LIPRF, GLYHGB #### [facility] [employer] [address] [place] [phone] [employer]: Brandon Anaya MD GFR, Amer >60 Normal >60 [facility] Comment on above: Performed By: #### C DP, CP, LIP, TROPI, LIPRF, GLYHGB #### [address] [address] [employer]: Brandon Anaya MD GFR,non Amer >60 Normal >60 [facility] Comment on above: Performed By: #### C DP, CP, LIP, TROPI, LIPRF, GLYHGB #### [address] [address] [employer]: Brandon Anaya MD Glucose [Mass/Vol] 87 mg/dL Normal 70-99 [facility] Comment on above: Performed By: #### C DP, CP, LIP, TROPI, LIPRF, GLYHGB #### [address] [address] [employer]: Brandon Anaya MD Potassium [Moles/Vol] 3.7 mmol/L Normal 3.7-5.3 [facility] Comment on above: Performed By: #### C DP, CP, LIP, TROPI, LIPRF, GLYHGB #### [address] [address] [employer]: Brandon Anaya MD Sodium [Moles/Vol] 135 mmol/L Normal 135-144 [facility] Comment on above: Performed By: #### C DP, CP, LIP, TROPI, LIPRF, GLYHGB #### [address] [address] [employer]: Brandon Anaya MD Urea nitrogen [Mass/Vol] 14 mg/dL Normal 8-23 [facility] Comment on above: Performed By: #### C DP, CP, LIP, TROPI, LIPRF, GLYHGB #### [address] [address] [employer]: Brandon Anaya MD BUN/CRE Ratio NOT REPORTED Normal 9-20 [facility] Comment on above: Performed By: #### C DP, CP, LIP, TROPI, LIPRF, GLYHGB #### [facility] [employer] [address] [place], [place] [id number] [employer]: Brandon Anaya MD Staging: NOT REPORTED Normal [facility] Comment on above: Performed By: #### C DP, CP, LIP, TROPI, LIPRF, GLYHGB #### [facility] [address] [place], [place] [phone] [employer]: Brandon Anaya MD Basic Metabolic Panel w/ Ref kervin to [facility] 10-16-2019 Anion gap [Moles/Vol] 13 mmol/L 9 - 17 mmol/L [place] Bun/Cre Ratio NOT REPORTED [place] Calcium [Mass/Vol] 8.6 mg/dL 8.6 - 10. 4 mg/dL [place] Chloride [Moles/Vol] 97 mmol/L Low 98 - 10 7 mmol/L [place] CO2 [Moles/Vol] 25 mmol/L 20 - 31 mmol/L [place] Creatinine [Mass/Vol] 0.42 mg/dL Low 0.5 - 0.9 mg/dL [place] GFR >60 >60 mL/min [place] GFR Non- >60 >60 mL/min [place] GFR/1.73 sq M predicted among non-blacks MDRD (S/P/Bld) [Vol rate/Area] [place] Comment on above: Average GFR for 70 o r more years old: 75 mL/min/1.73sq m Chronic Kidney Disease: <60 mL/min/1.73sq m Kidney failure: <15 mL/min/1.73sq m eGFR calculated using average adult body mass. Additional eGFR calculator available at: http://www.[employer].NN LABS/multiple_crcl_2012.htm GFR/1.73 sq M predicted among non-blacks MDRD (S/P/Bld) [Vol rate/Area] NOT REPORTED [place] Glucose [Mass/Vol] 87 mg/dL 70 - 99 mg/dL [place] Interpretation and review of laboratory results Abnormal [place] Potassium [Moles/Vol] 3.7 mmol/L 3.7 - 5.3 mmol/L [place] Sodium [Moles/Vol] 135 mmol/L 135 - 144 mmol/L [place] Urea nitrogen [Mass/Vol] 14 mg/dL 8 - 23 mg/dL [place] CBC auto differentialon 09-25-2019 Basophils (Bld) [#/Vol] 0.04 10*3/uL [place] Basophils/100 WBC (Bld) 0 % 0 - 2 % [place] Differential Type NOT REPORTED [place] Eosinophils (Bld) [#/Vol] 0.10 10*3/uL [place] Eosinophils/100 WBC (Bld) 1 % 1 - 4 % [place] Erythrocyte distribution width (RBC) [Ratio] 14.6 % High 11.8 - 14.4 % [place] Hematocrit (Bld) [Volume fraction] 40.2 % 36.3 - 47.1 % [place] Hemoglobin (Bld) [Mass/Vol] 12.6 g/dL 11.9 - 15.1 g/dL [place] Immature granulocytes (Bld) [#/Vol] 0.08 10*3/uL [place] Immature granulocytes (Bld) [#/Vol] 1 % High 0 [place] Interpretation and review of laboratory results Abnormal [place] Lymphocytes (Bld) [#/Vol] 3.05 10*3/uL [place] Lymphocytes/100 WBC (Bld) 32 % 24 - 43 % [place] MCH (RBC) [Entitic mass] 29.0 pg 25.2 - 33.5 pg [place] MCHC (RBC) [Mass/Vol] 31.3 g/dL 28.4 - 34.8 g/dL [place] MCV (RBC) [Entitic vol] 92.4 fL 82.6 - 102.9 fL [place] Monocytes (Bld) [#/Vol] 0.76 10*3/uL [place] Monocytes/100 WBC (Bld) 8 % 3 - 12 % [place] Platelet mean volume (Bld) [Entitic vol] 10.6 fL 8.1 - 13.5 fL [place] Platelets (Bld) [#/Vol] 216 10*3/uL [place] Platelets (Bld) [#/Vol] NOT REPORTED [place] RBC (Bld) [#/Vol] 4.35 10*6/uL 3.95 - 5.1 1 m/uL [place] RBC morphology finding Nom (Bld) ANISOCYTOSIS PRESENT [place] Segmented neutrophils/100 WBC (Bld) 58 % 36 - 65 % [place] Segs Absolute 5.61 [place] WBC (Bld) [#/Vol] 9.6 10*3/uL [place] WBC (Bld) [#/Vol] 0.0 10*3/uL 0.0 per 10 0 WBC [place] WBC Morphology NOT REPORTED [place] CBC with Diffon 10-16-2019 Abs. Basophil 0.04 k/uL Normal 0.00-0.20 [facility] Comment on above: Performed By: #### C DP, CP, LIP, TROPI, LIPRF, GLYHGB #### [facility] [employer] [address] [place] [address] [phone] [employer]: Brandon Anaya MD Abs.Imm.Granulocyte 0.08 k/uL Normal 0.00-0.30 [facility] Comment on above: Performed By: #### C DP, CP, LIP, TROPI, LIPRF, GLYHGB #### [facility] [employer] [address] [place] [address] [phone] [employer]: Brandon Anaya MD Abs.Neutrophil (Seg) 5.61 k/uL Normal 1.50-8.10 [facility] Comment on above: Performed By: #### C DP, CP, LIP, TROPI, LIPRF, GLYHGB #### [facility] [employer] [address] [place] [address] [employer]: Brandon Anaya MD Basophils/100 WBC (Bld) 0 % Normal 0-2 [facility] Comment on above: Performed By: #### C DP, CP, LIP, TROPI, LIPRF, GLYHGB #### [facility] [employer] [address] [place] [address] [employer]: Brandon Anaya MD Eosinophils (Bld) [#/Vol] 0.10 10*3/uL Normal 0.00-0.44 [facility] Comment on above: Performed By: #### C DP, CP, LIP, TROPI, LIPRF, GLYHGB #### [facility] [employer] [address] [place] [address] [employer]: Brandon Anaya MD Eosinophils/100 WBC (Bld) 1 % Normal 1-4 [facility] Comment on above: Performed By: #### C DP, CP, LIP, TROPI, LIPRF, GLYHGB #### [facility] [employer] [address] [place] [address] [employer]: Brandon Anaya MD Erythrocyte distribution width (RBC) [Ratio] 14.6 % High 11.8-14.4 [facility] Comment on above: Performed By: #### C DP, CP, LIP, TROPI, LIPRF, GLYHGB #### [facility] [employer] [address] [place] [address] [employer]: Brandon Anaya MD Hematocrit (Bld) [Volume fraction] 40.2 % Normal 36.3-47.1 [facility] Comment on above: Performed By: #### C DP, CP, LIP, TROPI, LIPRF, GLYHGB #### [address] [address] [employer]: Brandon Anaya MD Hemoglobin (Bld) [Mass/Vol] 12.6 g/dL Normal 11.9-15.1 [facility] Comment on above: Performed By: #### C DP, CP, LIP, TROPI, LIPRF, GLYHGB #### [address] [address] [employer]: Brandon Anaya MD Immature granulocytes (Bld) [#/Vol] 1 % High 0 [facility] Comment on above: Performed By: #### C DP, CP, LIP, TROPI, LIPRF, GLYHGB #### [address] [address] [employer]: Brandon Anaya MD Lymphocytes (Bld) [#/Vol] 3.05 10*3/uL Normal 1.10-3.70 [facility] Comment on above: Performed By: #### C DP, CP, LIP, TROPI, LIPRF, GLYHGB #### [address] [address] [employer]: Brandon Anaya MD Lymphocytes/100 WBC (Bld) 32 % Normal 24-43 [facility] Comment on above: Performed By: #### C DP, CP, LIP, TROPI, LIPRF, GLYHGB #### [address] [address] [employer]: Brandon Anaya MD MCH (RBC) [Entitic mass] 29.0 pg Normal 25.2-33.5 [facility] Comment on above: Performed By: #### C DP, CP, LIP, TROPI, LIPRF, GLYHGB #### [address] [address] [employer]: Brandon Anaya MD MCHC (RBC) [Mass/Vol] 31.3 g/dL Normal 28.4-34.8 [facility] Comment on above: Performed By: #### C DP, CP, LIP, TROPI, LIPRF, GLYHGB #### [address] [address] [employer]: Brandon Anaya MD MCV (RBC) [Entitic vol] 92.4 fL Normal 82.6-102.9 [facility] Comment on above: Performed By: #### C DP, CP, LIP, TROPI, LIPRF, GLYHGB #### [address] [address] [employer]: Brandon Anaya MD Monocytes (Bld) [#/Vol] 0.76 10*3/uL Normal 0.10-1.20 [facility] Comment on above: Performed By: #### C DP, CP, LIP, TROPI, LIPRF, GLYHGB #### [address] [address] [employer]: Brandon Anaya MD Monocytes/100 WBC (Bld) 8 % Normal 3-12 [facility] Comment on above: Performed By: #### C DP, CP, LIP, TROPI, LIPRF, GLYHGB #### [address] [address] [employer]: Brandon Anaya MD Neutrophil (Seg) 58 % Normal 36-65 [facility] Comment on above: Performed By: #### C DP, CP, LIP, TROPI, LIPRF, GLYHGB #### [address] [address] [employer]: Brandon Anaya MD NRBC Automated 0.0 per 100 WBC Normal 0.0 [facility] Comment on above: Performed By: #### C DP, CP, LIP, TROPI, LIPRF, GLYHGB #### [address] [place] [address] [employer]: Brandon Anaya MD Platelet mean volume (Bld) [Entitic vol] 10.6 fL Normal 8.1-13.5 [facility] Comment on above: Performed By: #### C DP, CP, LIP, TROPI, LIPRF, GLYHGB #### [address] [address] [employer]: Brandon Anaya MD Platelets (Bld) [#/Vol] 216 10*3/uL Normal 138-453 [facility] Comment on above: Performed By: #### C DP, CP, LIP, TROPI, LIPRF, GLYHGB #### [address] [address] [employer]: Brandon Anaya MD RBC (Bld) [#/Vol] 4.35 10*6/uL Normal 3.95-5.11 [facility] Comment on above: Performed By: #### C DP, CP, LIP, TROPI, LIPRF, GLYHGB #### [address] [address] [employer]: Brandon Anaya MD RBC morphology finding Nom (Bld) ANISOCYTOSIS PRESENT Normal [facility] Comment on above: Performed By: #### C DP, CP, LIP, TROPI, LIPRF, GLYHGB #### [address] [address] [employer]: Brandon Anaya MD WBC (Bld) [#/Vol] 9.6 10*3/uL Normal 3.5-11.3 [facility] Comment on above: Performed By: #### C DP, CP, LIP, TROPI, LIPRF, GLYHGB #### [address] [address] [employer]: Brandon Anaya MD Auto Diff Performed NOT REPORTED Normal [facility] Comment on above: Performed By: #### C DP, CP, LIP, TROPI, LIPRF, GLYHGB #### [facility] [address] [place] [address] [employer]: Brandon Anaya MD Platelets (Bld) [#/Vol] NOT REPORTED Normal [facility] Comment on above: Performed By: #### C DP, CP, LIP, TROPI, LIPRF, GLYHGB #### [facility] [address] [place] [address] [employer]: Brandon Anaya MD WBC Morphology NOT REPORTED Normal [facility] Comment on above: Performed By: #### C DP, CP, LIP, TROPI, LIPRF, GLYHGB #### [facility] [address] [place] [address] [employer]: Brandon Anaya MD MRI LUMBAR SPINE W [...] Tiffany Lindsay MD 10/15/19 Final result Normal [facility] POC Glucose Fingerstickon Glucose [Mass/Vol] 98 mg/dL 65 - 105 mg/dL [place] Glucose [Mass/Vol] 107 mg/dL High 65 - 105 mg/dL [place] Interpretation and review of laboratory results Abnormal [place] Glucose [Mass/Vol] 81 mg/dL 65 - 105 mg/dL [place] URINALYSIS WITH MICROSCOPICo n 10-16-2019 Amorphous, UA NOT REPORTED None [facility] [place] Bacteria, UA MODERATE Abnormal None [place] Bilirubin Urine Negative NEGATIVE [place] Casts UA 0 TO 2 HYALINE Refer ence range defined for non-centrifuged specimen. [place] Color, UA YELLOW YELLOW [place] Crystals, UA NOT REPORTED None /HPF [facility] [place] Epithelial Cells UA 0 TO 2 [place] Glucose, Ur Negative NEGATIVE [place] Interpretation and review of laboratory results Abnormal [place] Ketones Ql (U) SMALL Abnormal NEGATIVE [place] Leukocyte esterase Test strip Ql (U) Negative NEGATIVE [place] Mucus, UA NOT REPORTED None [place] Nitrite, Urine Negative NEGATIVE [place] Other Observations UA NOT REPORTED NOT REQ. M [place] pH, UA 8.0 [place] Protein (U) [Mass/Vol] Negative NEGATIVE [place] RBC (U) [#/Vol] 2 TO 5 [place] Comment on above: Reference range defi nya for non-centrifuged specimen. Renal Epithelial, UA NOT REPORTED 0 /HPF [place] Specific [place], UA 1.006 [place] Trichomonas, UA NOT REPORTED None [place] Turbidity UA CLOUDY Abnormal CLEAR [place] Urine Hgb Negative NEGATIVE [place] Urobilinogen, Urine Normal Normal [place] WBC, UA 0 TO 2 [place] Yeast, UA NOT REPORTED None [place] Urinalysis w/ Microon 2019 ----- Normal [facility] Comment on above: Performed By: #### C DP, CP, LIP, TROPI, LIPRF, GLYHGB #### [facility] [employer] [address] [place] [address] [phone] [employer]: Brandon Anaya MD Acetoacetic Acid,Ur SMALL Abnormal NEG [facility] Comment on above: Performed By: #### C DP, CP, LIP, TROPI, LIPRF, GLYHGB #### [facility] [employer] [address] [place] [address] [phone] [employer]: Brandon Anaya MD Bacteria LM.HPF (Urine sed) [#/Area] MODERATE Abnormal NONE [facility] Comment on above: Performed By: #### C DP, CP, LIP, TROPI, LIPRF, GLYHGB #### [address] [address] [employer]: Brandon Anaya MD Bilirubin, SemiQt,Ur Negative Normal NEG [facility] Comment on above: Performed By: #### C DP, CP, LIP, TROPI, LIPRF, GLYHGB #### [address] [address] [employer]: Brandon Anaya MD Casts LM.LPF (Urine sed) [#/Area] 0 TO 2 HYALINE Normal 0-8 [facility] Comment on above: Result Comment: Refe rence range defined for non-centrifuged specimen. Performed By: #### C DP, CP, LIP, TROPI, LIPRF, GLYHGB #### [address] [address] [employer]: Brandon Anaya MD Color (U) YELLOW Normal YEL [facility] Comment on above: Performed By: #### C DP, CP, LIP, TROPI, LIPRF, GLYHGB #### [address] [address] [employer]: Brandon Anaya MD Epithelial cells LM.HPF (Urine sed) [#/Area] 0 TO 2 Normal 0-5 [facility] Comment on above: Performed By: #### C DP, CP, LIP, TROPI, LIPRF, GLYHGB #### [address] [address] [employer]: Brandon Anaya MD Glucose Ql (U) Negative Normal NEG [facility] Comment on above: Performed By: #### C DP, CP, LIP, TROPI, LIPRF, GLYHGB #### [address] [address] [employer]: Brandon Anaya MD Hemoglobin, Ur Negative Normal NEG [facility] Comment on above: Performed By: #### C DP, CP, LIP, TROPI, LIPRF, GLYHGB #### [address] [address] [employer]: Brandon Anaya MD Leukocyte esterase Test strip Ql (U) Negative Normal NEG [facility] Comment on above: Performed By: #### C DP, CP, LIP, TROPI, LIPRF, GLYHGB #### [address] [address] [employer]: Brandon Anaya MD Nitrite,Ur Negative Normal NEG [facility] Comment on above: Performed By: #### C DP, CP, LIP, TROPI, LIPRF, GLYHGB #### [address] [address] [employer]: Brandon Anaya MD pH (U) 8.0 [pH] Normal 5.0-8.0 [facility] Comment on above: Performed By: #### C DP, CP, LIP, TROPI, LIPRF, GLYHGB #### [place] [address] [employer]: Brandon Anaya MD Protein Ql (U) Negative Normal NEG [facility] Comment on above: Performed By: #### C DP, CP, LIP, TROPI, LIPRF, GLYHGB #### [address] [address] [employer]: Brandon Anaya MD RBC (U) [#/Vol] 2 TO 5 Normal 0-4 [facility] Comment on above: Result Comment: Refe rence range defined for non-centrifuged specimen. Performed By: #### C DP, CP, LIP, TROPI, LIPRF, GLYHGB #### [address] [address] [employer]: Brandon Anaya MD Specific gravity (U) [Rel density] 1.006 Normal 1.005-1.030 [facility] Comment on above: Performed By: #### C DP, CP, LIP, TROPI, LIPRF, GLYHGB #### [facility] [employer] [address] [place] [phone] [employer]: Brandon Anaya MD Turbidity CLOUDY Abnormal CLEAR [facility] Comment on above: Performed By: #### C DP, CP, LIP, TROPI, LIPRF, GLYHGB #### [facility] [employer] [address] [place] [address] [employer]: Brandon Anaya MD Urobilinogen,Ur Normal Normal NORM [facility] Comment on above: Performed By: #### C DP, CP, LIP, TROPI, LIPRF, GLYHGB #### [address] [address] [employer]: Brandon Anaya MD WBC (U) [#/Vol] 0 TO 2 Normal 0-5 [facility] Comment on above: Performed By: #### C DP, CP, LIP, TROPI, LIPRF, GLYHGB #### [address] [address] [employer]: Brandon Anaya MD Amorphous sediment LM Ql (Urine sed) NOT REPORTED Normal NONE [facility] Comment on above: Performed By: #### C DP, CP, LIP, TROPI, LIPRF, GLYHGB #### [facility] [address] [place] [address] [employer]: Brandon Anaya MD Crystals LM Nom (Urine sed) NOT REPORTED Normal [facility] Comment on above: Performed By: #### C DP, CP, LIP, TROPI, LIPRF, GLYHGB #### [facility] [employer] [address] [place] [address] [employer]: Brandon Anaya MD Epithelial, Renal NOT REPORTED Normal 0 [facility] Comment on above: Performed By: #### C DP, CP, LIP, TROPI, LIPRF, GLYHGB #### [address] [address] [employer]: Brandon Anaya MD Mucus Strands NOT REPORTED Normal [facility] Comment on above: Performed By: #### C DP, CP, LIP, TROPI, LIPRF, GLYHGB #### [address] [address] [employer]: Brandon Anaya MD Other Observations NOT REPORTED Normal NREQ [facility] Comment on above: Performed By: #### C DP, CP, LIP, TROPI, LIPRF, GLYHGB #### [address] [address] [employer]: Brandon Anaya MD Trichomonas NOT REPORTED Normal [facility] Comment on above: Performed By: #### C DP, CP, LIP, TROPI, LIPRF, GLYHGB #### [address] [address] [employer]: Brandon Anaya MD Yeast LM Ql (Urine sed) NOT REPORTED Normal [facility] Comment on above: Performed By: #### C DP, CP, LIP, TROPI, LIPRF, GLYHGB #### [address] [address] [employer]: Brandon Anaya MD Basic Metab w/rfx MGon 10-14 (cont.) Normal [facility] Comment on above: Result Comment: Aver age GFR for 70 or more years old: 75 mL/min/1.73sq m Chronic Kidney Disease: <60 mL/min/1.73sq m Kidney failure: <15 mL/min/1.73sq m eGFR calculated using average adult body mass. Additional eGFR calculator available at: http://www.[employer].NN LABS/multiple_crcl_2012.htm Performed By: #### C DP, CP, LIP, TROPI, LIPRF, GLYHGB #### [facility] [employer] [address] [place] [address] [employer]: Brandon Anaya MD Anion gap [Moles/Vol] 14 mmol/L Normal 9-17 [facility] Comment on above: Performed By: #### C DP, CP, LIP, TROPI, LIPRF, GLYHGB #### [facility] [address] [place] [address] [employer]: Brandon Anaya MD Calcium [Mass/Vol] 8.8 mg/dL Normal 8.6-10.4 [facility] Comment on above: Performed By: #### C DP, CP, LIP, TROPI, LIPRF, GLYHGB #### [address] [address] [employer]: Brandon Anaya MD Chloride [Moles/Vol] 94 mmol/L Low 98-107 [facility] Comment on above: Performed By: #### C DP, CP, LIP, TROPI, LIPRF, GLYHGB #### [facility] [address] [place] [address] [employer]: Brandon Anaya MD CO2 [Moles/Vol] 23 mmol/L Normal 20-31 [facility] Comment on above: Performed By: #### C DP, CP, LIP, TROPI, LIPRF, GLYHGB #### [facility] [address] [place] [address] [employer]: Brandon Anaya MD Creatinine [Mass/Vol] 0.36 mg/dL Low 0.50-0.90 [facility] Comment on above: Performed By: #### C DP, CP, LIP, TROPI, LIPRF, GLYHGB #### [facility] [address] [place] [address] [employer]: Brandon Anaya MD GFR, Amer >60 Normal >60 [facility] Comment on above: Performed By: #### C DP, CP, LIP, TROPI, LIPRF, GLYHGB #### [facility] [address] [place] [phone] [employer]: Brandon Anaya MD GFR,non Amer >60 Normal >60 [facility] Comment on above: Performed By: #### C DP, CP, LIP, TROPI, LIPRF, GLYHGB #### [facility] [address] [place] [address] [employer]: Brandon Anaya MD Glucose [Mass/Vol] 89 mg/dL Normal 70-99 [facility] Comment on above: Performed By: #### C DP, CP, LIP, TROPI, LIPRF, GLYHGB #### [address] [address] [employer]: Brandon Anaya MD Potassium [Moles/Vol] 3.7 mmol/L Normal 3.7-5.3 [facility] Comment on above: Performed By: #### C DP, CP, LIP, TROPI, LIPRF, GLYHGB #### [facility] [address] [place] [address] [employer]: Brandon Anaya MD Sodium [Moles/Vol] 131 mmol/L Low 135-144 [facility] Comment on above: Performed By: #### C DP, CP, LIP, TROPI, LIPRF, GLYHGB #### [facility] [address] [place] [phone] [employer]: Brandon Anaya MD Urea nitrogen [Mass/Vol] 16 mg/dL Normal 8-23 [facility] Comment on above: Performed By: #### C DP, CP, LIP, TROPI, LIPRF, GLYHGB #### [facility] [address] [place] [address] [employer]: Brandon Anaya MD BUN/CRE Ratio NOT REPORTED Normal -20 [facility] Comment on above: Performed By: #### C DP, CP, LIP, TROPI, LIPRF, GLYHGB #### [facility] [address] [place] [address] [employer]: Brandon Anaya MD Staging: NOT REPORTED Normal [facility] Comment on above: Performed By: #### C DP, CP, LIP, TROPI, LIPRF, GLYHGB #### [facility] [address] [place] [address] [employer]: Brandon Anaya MD Basic Metabolic Panel w/ Ref kervin to [facility] 10-15-2019 Anion gap [Moles/Vol] 14 mmol/L 9 - 17 mmol/L [place] Bun/Cre Ratio NOT REPORTED [place] Calcium [Mass/Vol] 8.8 mg/dL 8.6 - 10. 4 mg/dL [place] Chloride [Moles/Vol] 94 mmol/L Low 98 - 10 7 mmol/L [place] CO2 [Moles/Vol] 23 mmol/L 20 - 31 mmol/L [place] Creatinine [Mass/Vol] 0.36 mg/dL Low 0.5 - 0.9 mg/dL [place] GFR >60 >60 mL/min [place] GFR Non- >60 >60 mL/min [place] GFR/1.73 sq M predicted among non-blacks MDRD (S/P/Bld) [Vol rate/Area] [place] Comment on above: Average GFR for 70 o r more years old: 75 mL/min/1.73sq m Chronic Kidney Disease: <60 mL/min/1.73sq m Kidney failure: <15 mL/min/1.73sq m eGFR calculated using average adult body mass. Additional eGFR calculator available at: http://www.[employer].NN LABS/multiple_crcl_2011.htm GFR/1.73 sq M predicted among non-blacks MDRD (S/P/Bld) [Vol rate/Area] NOT REPORTED [place] Glucose [Mass/Vol] 89 mg/dL 70 - 99 mg/dL [place] Interpretation and review of laboratory results Abnormal [place] Potassium [Moles/Vol] 3.7 mmol/L 3.7 - 5.3 mmol/L [place] Sodium [Moles/Vol] 131 mmol/L Low 135 - 144 mmol/L [place] Urea nitrogen [Mass/Vol] 16 mg/dL 8 - 23 mg/dL [place] CBC auto differentialon 09-25 Basophils (Bld) [#/Vol] 0.06 10*3/uL [place] Basophils/100 WBC (Bld) 1 % 0 - 2 % [place] Differential Type NOT REPORTED [place] Eosinophils (Bld) [#/Vol] 0.13 10*3/uL [place] Eosinophils/100 WBC (Bld) 1 % 1 - 4 % [place] Erythrocyte distribution width (RBC) [Ratio] 14.6 % High 11.8 - 14.4 % [place] Hematocrit (Bld) [Volume fraction] 41.6 % 36.3 - 47.1 % [place] Hemoglobin (Bld) [Mass/Vol] 13.4 g/dL 11.9 - 15.1 g/dL [place] Immature granulocytes (Bld) [#/Vol] 1 % High 0 [place] Immature granulocytes (Bld) [#/Vol] 0.11 10*3/uL [place] Interpretation and review of laboratory results Abnormal [place] Lymphocytes (Bld) [#/Vol] 2.56 10*3/uL [place] Lymphocytes/100 WBC (Bld) 24 % 24 - 43 % [place] MCH (RBC) [Entitic mass] 29.3 pg 25.2 - 33.5 pg [place] MCHC (RBC) [Mass/Vol] 32.2 g/dL 28.4 - 34.8 g/dL [place] MCV (RBC) [Entitic vol] 90.8 fL 82.6 - 102.9 fL [place] Monocytes (Bld) [#/Vol] 0.78 10*3/uL [place] Monocytes/100 WBC (Bld) 7 % 3 - 12 % [place] Platelet mean volume (Bld) [Entitic vol] 10.6 fL 8.1 - 13.5 fL [place] Platelets (Bld) [#/Vol] NOT REPORTED [place] Platelets (Bld) [#/Vol] 241 10*3/uL [place] RBC (Bld) [#/Vol] 4.58 10*6/uL 3.95 - 5.1 1 m/uL [place] RBC morphology finding Nom (Bld) ANISOCYTOSIS PRESENT [place] Segmented neutrophils/100 WBC (Bld) 66 % High 36 - 65 % [place] Segs Absolute 7.00 [place] WBC (Bld) [#/Vol] 10.6 10*3/uL [place] WBC (Bld) [#/Vol] 0.0 10*3/uL 0.0 per 10 0 WBC [place] WBC Morphology NOT REPORTED [place] CBC with Diffon 10-15-2019 Abs. Basophil 0.06 k/uL Normal 0.00-0.20 [facility] Comment on above: Performed By: #### C DP, CP, LIP, TROPI, LIPRF, GLYHGB #### [employer] [address] [place] [address] [phone] [employer]: Brandon Anaya MD Abs.Imm.Granulocyte 0.11 k/uL Normal 0.00-0.30 [facility] Comment on above: Performed By: #### C DP, CP, LIP, TROPI, LIPRF, GLYHGB #### [facility] [employer] [address] [place] [phone] [employer]: Brandon Anaya MD Abs.Neutrophil (Seg) 7.00 k/uL Normal 1.50-8.10 [facility] Comment on above: Performed By: #### C DP, CP, LIP, TROPI, LIPRF, GLYHGB #### [address] [address] [employer]: Brandon Anaya MD Basophils/100 WBC (Bld) 1 % Normal 0-2 [facility] Comment on above: Performed By: #### C DP, CP, LIP, TROPI, LIPRF, GLYHGB #### [address] [address] [employer]: Brandon Anaya MD Eosinophils (Bld) [#/Vol] 0.13 10*3/uL Normal 0.00-0.44 [facility] Comment on above: Performed By: #### C DP, CP, LIP, TROPI, LIPRF, GLYHGB #### [facility] [employer] [address] [place] [address] [employer]: Brandon Anaya MD Eosinophils/100 WBC (Bld) 1 % Normal 1-4 [facility] Comment on above: Performed By: #### C DP, CP, LIP, TROPI, LIPRF, GLYHGB #### [address] [address] [employer]: Brandon Anaya MD Erythrocyte distribution width (RBC) [Ratio] 14.6 % High 11.8-14.4 [facility] Comment on above: Performed By: #### C DP, CP, LIP, TROPI, LIPRF, GLYHGB #### [address] [address] [employer]: Brandon Anaya MD Hematocrit (Bld) [Volume fraction] 41.6 % Normal 36.3-47.1 [facility] Comment on above: Performed By: #### C DP, CP, LIP, TROPI, LIPRF, GLYHGB #### [address] [address] [employer]: Brandon Anaya MD Hemoglobin (Bld) [Mass/Vol] 13.4 g/dL Normal 11.9-15.1 [facility] Comment on above: Performed By: #### C DP, CP, LIP, TROPI, LIPRF, GLYHGB #### [address] [address] [employer]: Brandon Anaya MD Immature granulocytes (Bld) [#/Vol] 1 % High 0 [facility] Comment on above: Performed By: #### C DP, CP, LIP, TROPI, LIPRF, GLYHGB #### [address] [address] [employer]: Brandon Anaya MD Lymphocytes (Bld) [#/Vol] 2.56 10*3/uL Normal 1.10-3.70 [facility] Comment on above: Performed By: #### C DP, CP, LIP, TROPI, LIPRF, GLYHGB #### [address] [address] [employer]: Brandon Anaya MD Lymphocytes/100 WBC (Bld) 24 % Normal 24-43 [facility] Comment on above: Performed By: #### C DP, CP, LIP, TROPI, LIPRF, GLYHGB #### [facility] [employer] [address] [place] [phone] [employer]: Brandon Anaya MD MCH (RBC) [Entitic mass] 29.3 pg Normal 25.2-33.5 [facility] Comment on above: Performed By: #### C DP, CP, LIP, TROPI, LIPRF, GLYHGB #### [facility] [employer] [address] [place] [address] [employer]: Brandon Anaya MD MCHC (RBC) [Mass/Vol] 32.2 g/dL Normal 28.4-34.8 [facility] Comment on above: Performed By: #### C DP, CP, LIP, TROPI, LIPRF, GLYHGB #### [address] [address] [employer]: Brandon Anaya MD MCV (RBC) [Entitic vol] 90.8 fL Normal 82.6-102.9 [facility] Comment on above: Performed By: #### C DP, CP, LIP, TROPI, LIPRF, GLYHGB #### [address] [address] [employer]: Brandon Anaya MD Monocytes (Bld) [#/Vol] 0.78 10*3/uL Normal 0.10-1.20 [facility] Comment on above: Performed By: #### C DP, CP, LIP, TROPI, LIPRF, GLYHGB #### [address] [address] [employer]: Brandon Anaya MD Monocytes/100 WBC (Bld) 7 % Normal 3-12 [facility] Comment on above: Performed By: #### C DP, CP, LIP, TROPI, LIPRF, GLYHGB #### [place] [address] [employer]: Brandon Anaya MD Neutrophil (Seg) 66 % High 36-65 [facility] Comment on above: Performed By: #### C DP, CP, LIP, TROPI, LIPRF, GLYHGB #### [address] [address] [employer]: Brandon Anaya MD NRBC Automated 0.0 per 100 WBC Normal 0.0 [facility] Comment on above: Performed By: #### C DP, CP, LIP, TROPI, LIPRF, GLYHGB #### [address] [address] [employer]: Brandon Anaya MD Platelet mean volume (Bld) [Entitic vol] 10.6 fL Normal 8.1-13.5 [facility] Comment on above: Performed By: #### C DP, CP, LIP, TROPI, LIPRF, GLYHGB #### [address] [address] [employer]: Brandon Anaya MD Platelets (Bld) [#/Vol] 241 10*3/uL Normal 138-453 [facility] Comment on above: Performed By: #### C DP, CP, LIP, TROPI, LIPRF, GLYHGB #### [address] [address] [employer]: Brandon Anaya MD RBC (Bld) [#/Vol] 4.58 10*6/uL Normal 3.95-5.11 [facility] Comment on above: Performed By: #### C DP, CP, LIP, TROPI, LIPRF, GLYHGB #### [address] [address] [employer]: Brandon Anaya MD RBC morphology finding Nom (Bld) ANISOCYTOSIS PRESENT Normal [facility] Comment on above: Performed By: #### C DP, CP, LIP, TROPI, LIPRF, GLYHGB #### [address] [address] [employer]: Brandon Anaya MD WBC (Bld) [#/Vol] 10.6 10*3/uL Normal 3.5-11.3 [facility] Comment on above: Performed By: #### C DP, CP, LIP, TROPI, LIPRF, GLYHGB #### [address] [address] [employer]: Brandon Anaya MD Auto Diff Performed NOT REPORTED Normal [facility] Comment on above: Performed By: #### C DP, CP, LIP, TROPI, LIPRF, GLYHGB #### [facility] [employer] [facility] [place] [address] [employer]: Brandon Anaya MD Platelets (Bld) [#/Vol] NOT REPORTED Normal [facility] Comment on above: Performed By: #### C DP, CP, LIP, TROPI, LIPRF, GLYHGB #### [facility] [address] [place] [address] [employer]: Brandon Anaya MD WBC Morphology NOT REPORTED Normal [facility] Comment on above: Performed By: #### C DP, CP, LIP, TROPI, LIPRF, GLYHGB #### [facility] [employer] [address] [place] [address] [employer]: Brandon Anaya MD MRI LUMBAR SPINE W WO CONTRA STon 10-15-2019 No compression fract ure of [...] 2013; 10(10):789-794; J Vasc Surg. 2018; 67:2-77 [facility], [place] EXAMINATION: MRI OF THE LUMBAR SPINE WITHOUT [...] are intact. The neural foramina are intact. [facility]- [place], [place], pn Incoming Radiant Results From [facility] - 10/15/2019 11:11 PM EDT EXAMINATION: MRI [...] 2013; 10(10):789-794; J Vasc Surg. 2018; 67:2-77 [place] MYCOPLASMA PNEUMONIAE ANTIBO DY, IGMon 10-15-2019 Mycoplasma pneumo IgM 0.12 <0.91 [place] Comment on above: Reference Range: <=0.90 Negative 0.91-1.09 Equivocal >=1.10 Positive Mycoplasma Ab, IgMon 020 Mycoplasma Ab, IgM 0.12 Normal <0.91 [facility] Comment on above: Result Comment: Reference Range: <=0.90 Negative 0.91-1.09 Equivocal >=1.10 Positive Performed By: #### C DP, CP, LIP, TROPI, LIPRF, GLYHGB #### [employer] [address] [place] [phone] [employer]: Brandon Anaya MD POC Glucose Fingerstickon Glucose [Mass/Vol] 100 mg/dL 65 - 105 mg/dL [facility], [place] Glucose [Mass/Vol] 99 mg/dL 65 - 105 mg/dL [place] Glucose [Mass/Vol] 91 mg/dL 65 - 105 mg/dL [facility], [place] Glucose [Mass/Vol] 95 mg/dL 65 - 105 mg/dL [facility], [place] RENINon 10-15-2019 Renin Activity 0.1 ng/mL/hr [place] Comment on above: (NOTE) INTERPRETIVE INFORMATION: Renin Activity Adult, Normal sodium diet: Supine ................. 0.2-1.6 ng/mL/hr Upright ................ 0.5-4.0 ng/mL/hr Children, Normal sodium diet, Supine: [place] (1-7 days) ..... 2.0-35.0 ng/mL/hr Cord blood [...] angiotensinogen is decreased. See Compliance Statement D: [email or web address] Performed By: [employer] [address] [place] [id number] [employer] [facility] Supervisor: Nik Rosas MD, MS Renin Comment NOT REPORTED [place] Renin Activityon 10-15-2019 Renin Activity 0.1 ng/mL/hr Normal [facility] Comment on above: Result Comment: (NOT E) INTERPRETIVE INFORMATION: Renin Activity Adult, Normal sodium diet: Supine ................. 0.2-1.6 ng/mL/hr Upright ................ 0.5-4.0 ng/mL/hr Children, Normal sodium diet, Supine: [place] (1-7 days) ..... 2.0-35.0 ng/mL/hr Cord blood [...] angiotensinogen is decreased. See Compliance Statement D: [email or web address] Performed By: [employer] [address] [place] [address] [employer] [facility] Supervisor: Nik Rosas MD, MS Performed By: #### C DP, CP, LIP, TROPI, LIPRF, GLYHGB #### [address] [address] [employer]: Brandon Anaya MD ALDOSTERONEon 10-14-2019 Aldosterone 5 ng/dL [place] Comment on above: (NOTE) INTERPRETIVE INFORMATION: [...] reference intervals for this test in the [facility] Test Directory ([employer]). Performed By: [employer] [address] [place] [address] [employer] [facility] Supervisor: Nik Rosas MD, MS Aldosterone Comment NOT REPORTED [place] Aldosteroneon 10-14-2019 Aldosterone 5.0 ng/dL Normal [facility] Comment on above: Result Comment: [...] reference intervals for this test in the [facility] Test Directory ([employer]). Performed By: [employer] [address] [place] [id number] [employer] [facility] Supervisor: Nik Rosas MD, MS Performed By: #### C DP, CP, LIP, TROPI, LIPRF, GLYHGB #### [address] [address] [employer] Officer: Brandon Anaya MD Basic Metab w/rfx MGon 10-13 (cont.) [facility] Comment on above: Result Comment: Aver age GFR for 70 or more years old: 75 mL/min/1.73sq m Chronic Kidney Disease: <60 mL/min/1.73sq m Kidney failure: <15 mL/min/1.73sq m eGFR calculated using average adult body mass. Additional eGFR calculator available at: http://www.[employer].NN LABS/multiple_crcl_2012.htm Performed By: #### C DP, CP, LIP, TROPI, LIPRF, GLYHGB #### [address] [phone] [employer]: Brandon Anaya MD Anion gap [Moles/Vol] 13 mmol/L Normal 9-17 [facility] Comment on above: Performed By: #### C DP, CP, LIP, TROPI, LIPRF, GLYHGB #### [address] [phone] [employer] Officer: Brandon Anaya MD Calcium [Mass/Vol] 8.5 mg/dL Low 8.6-10.4 [facility] Comment on above: Performed By: #### C DP, CP, LIP, TROPI, LIPRF, GLYHGB #### [address] [address] [employer]: Brandon Anaya MD Chloride [Moles/Vol] 91 mmol/L Low 98-107 [facility] Comment on above: Performed By: #### C DP, CP, LIP, TROPI, LIPRF, GLYHGB #### [address] [address] [employer] Officer: Brandon Anaya MD CO2 [Moles/Vol] 26 mmol/L Normal 20-31 [facility] Comment on above: Performed By: #### C DP, CP, LIP, TROPI, LIPRF, GLYHGB #### [address] [address] [employer] Officer: Brandon Anaya MD Creatinine [Mass/Vol] 0.48 mg/dL Low 0.50-0.90 [facility] Comment on above: Performed By: #### C DP, CP, LIP, TROPI, LIPRF, GLYHGB #### [address] [address] [employer]: Brandon Anaya MD GFR, Amer >60 Normal >60 [facility] Comment on above: Performed By: #### C DP, CP, LIP, TROPI, LIPRF, GLYHGB #### [address] [address] [employer]: Brandon Anaya MD GFR,non Amer >60 Normal >60 [facility] Comment on above: Performed By: #### C DP, CP, LIP, TROPI, LIPRF, GLYHGB #### [employer] [address] [employer]: Brandon Anaya MD Glucose [Mass/Vol] 104 mg/dL High 70-99 [facility] Comment on above: Performed By: #### C DP, CP, LIP, TROPI, LIPRF, GLYHGB #### [address] [address] [employer] Officer: Brandon Anaya MD Potassium [Moles/Vol] 3.7 mmol/L Normal 3.7-5.3 [facility] Comment on above: Performed By: #### C DP, CP, LIP, TROPI, LIPRF, GLYHGB #### [address] [address] [employer] Officer: Brandon Anaya MD Sodium [Moles/Vol] 130 mmol/L Low 135-144 [facility] Comment on above: Performed By: #### C DP, CP, LIP, TROPI, LIPRF, GLYHGB #### [address] [address] [employer] Officer: Brandon Anaya MD Urea nitrogen [Mass/Vol] 19 mg/dL Normal 8-23 [facility] Comment on above: Performed By: #### C DP, CP, LIP, TROPI, LIPRF, GLYHGB #### [address] [address] [employer]: Brandon Anaya MD BUN/CRE Ratio NOT REPORTED Normal -20 [facility] Comment on above: Performed By: #### C DP, CP, LIP, TROPI, LIPRF, GLYHGB #### [address] [address] [employer] Officer: Brandon Anaya MD Staging: NOT REPORTED Normal [facility] Comment on above: Performed By: #### C DP, CP, LIP, TROPI, LIPRF, GLYHGB #### [place] [address] [place] [address] [employer]: Brandon Anaya MD Basic Metabolic Panel w/ Ref kervin to MGon 10-14-2019 Anion gap [Moles/Vol] 13 mmol/L 9 - 17 mmol/L [place] Bun/Cre Ratio NOT REPORTED [place] Calcium [Mass/Vol] 8.5 mg/dL Low 8.6 - 10. 4 mg/dL [place] Chloride [Moles/Vol] 91 mmol/L Low 98 - 10 7 mmol/L [place] CO2 [Moles/Vol] 26 mmol/L 20 - 31 mmol/L [place] Creatinine [Mass/Vol] 0.48 mg/dL Low 0.5 - 0.9 mg/dL [place] GFR >60 >60 mL/min [place] GFR Non- >60 >60 mL/min [place] GFR/1.73 sq M predicted among non-blacks MDRD (S/P/Bld) [Vol rate/Area] [place] Comment on above: Average GFR for 70 o r more years old: 75 mL/min/1.73sq m Chronic Kidney Disease: <60 mL/min/1.73sq m Kidney failure: <15 mL/min/1.73sq m eGFR calculated using average adult body mass. Additional eGFR calculator available at: http://www.[employer].NN LABS/multiple_crcl_2012.htm GFR/1.73 sq M predicted among non-blacks MDRD (S/P/Bld) [Vol rate/Area] NOT REPORTED [place] Glucose [Mass/Vol] 104 mg/dL High 70 - 99 mg/dL [place] Interpretation and review of laboratory results Abnormal [place] Potassium [Moles/Vol] 3.7 mmol/L 3.7 - 5.3 mmol/L [place] Sodium [Moles/Vol] 130 mmol/L Low 135 - 144 mmol/L [place] Urea nitrogen [Mass/Vol] 19 mg/dL 8 - 23 mg/dL [place] CBC auto differentialon 08-2 0-2019 Atypical Lymphocytes 3 % [place] Atypical Lymphocytes Absolute 0.30 k/uL [place] Basophils (Bld) [#/Vol] 0.00 10*3/uL [place] Basophils/100 WBC (Bld) 0 % 0 - 2 % [place] Differential Type NOT REPORTED [place] Eosinophils (Bld) [#/Vol] 0.10 10*3/uL [place] Eosinophils/100 WBC (Bld) 1 % 1 - 4 % [place] Erythrocyte distribution width (RBC) [Ratio] 14.7 % High 11.8 - 14.4 % [place] Hematocrit (Bld) [Volume fraction] 39.5 % 36.3 - 47.1 % [place] Hemoglobin (Bld) [Mass/Vol] 12.9 g/dL 11.9 - 15.1 g/dL [place] Immature granulocytes (Bld) [#/Vol] 0.10 10*3/uL [place] Immature granulocytes (Bld) [#/Vol] 1 % High 0 [place] Interpretation and review of laboratory results Abnormal [place] Lymphocytes (Bld) [#/Vol] 2.80 10*3/uL [place] Lymphocytes/100 WBC (Bld) 28 % 24 - 44 % [place] MCH (RBC) [Entitic mass] 29.5 pg 25.2 - 33.5 pg [place] MCHC (RBC) [Mass/Vol] 32.7 g/dL 28.4 - 34.8 g/dL [place] MCV (RBC) [Entitic vol] 90.2 fL 82.6 - 102.9 fL [place] Monocytes (Bld) [#/Vol] 0.50 10*3/uL [place] Monocytes/100 WBC (Bld) 5 % 1 - 7 % [place] Morphology Alfredo (Bld) [Interp] ANISOCYTOSIS PRESENT [place] Platelet mean volume (Bld) [Entitic vol] 10.1 fL 8.1 - 13.5 fL [place] Platelets (Bld) [#/Vol] 190 10*3/uL [place] Platelets (Bld) [#/Vol] NOT REPORTED [place] RBC (Bld) [#/Vol] 4.38 10*6/uL 3.95 - 5.1 1 m/uL [place] RBC morphology finding Nom (Bld) NOT REPORTED [place] Segmented neutrophils/100 WBC (Bld) 62 % 36 - 66 % [place] Segs Absolute 6.20 [place] WBC (Bld) [#/Vol] 10.0 10*3/uL [place] WBC (Bld) [#/Vol] 0.0 10*3/uL 0.0 per 10 0 WBC [place] WBC Morphology NOT REPORTED [place] CBC with Diffon 10-14-2019 Abs. Atypical Lymphs 0.30 k/uL Normal [facility] Comment on above: Performed By: #### C DP, CP, LIP, TROPI, LIPRF, GLYHGB #### [facility] [employer] [address] [place] [phone] [employer] Officer: Brandon Anaya MD Abs. Basophil 0.00 k/uL Normal 0.0-0.2 [facility] Comment on above: Performed By: #### C DP, CP, LIP, TROPI, LIPRF, GLYHGB #### [facility] [employer] [address] [place] [address] [employer] Officer: Brandon Anaya MD Abs.Imm.Granulocyte 0.10 k/uL Normal 0.00-0.30 [facility] Comment on above: Performed By: #### C DP, CP, LIP, TROPI, LIPRF, GLYHGB #### [facility] [employer] [address] [place] [address] [employer] Officer: Brandon Anaya MD Abs.Neutrophil (Seg) 6.20 k/uL Normal 1.8-7.7 [facility] Comment on above: Performed By: #### C DP, CP, LIP, TROPI, LIPRF, GLYHGB #### [address] [address] [employer] Officer: Brandon Anaya MD Atypical Lymphs 3 % Normal [facility] Comment on above: Performed By: #### C DP, CP, LIP, TROPI, LIPRF, GLYHGB #### [address] [address] [employer] Officer: Brandon Anaya MD Basophils/100 WBC (Bld) 0 % Normal 0-2 [facility] Comment on above: Performed By: #### C DP, CP, LIP, TROPI, LIPRF, GLYHGB #### [address] [address] [employer] Officer: Brandon Anaya MD Eosinophils (Bld) [#/Vol] 0.10 10*3/uL Normal 0.0-0.4 [facility] Comment on above: Performed By: #### C DP, CP, LIP, TROPI, LIPRF, GLYHGB #### [address] [address] [employer] Officer: Brandon Anaya MD Eosinophils/100 WBC (Bld) 1 % Normal 1-4 [facility] Comment on above: Performed By: #### C DP, CP, LIP, TROPI, LIPRF, GLYHGB #### [address] [address] [employer] Officer: Brandon Anaya MD Immature granulocytes (Bld) [#/Vol] 1 % High 0 [facility] Comment on above: Performed By: #### C DP, CP, LIP, TROPI, LIPRF, GLYHGB #### [address] [place] [address] [employer]: Brandon Anaya MD Lymphocytes (Bld) [#/Vol] 2.80 10*3/uL Normal 1.0-4.8 [facility] Comment on above: Performed By: #### C DP, CP, LIP, TROPI, LIPRF, GLYHGB #### [address] [address] [employer] Officer: Brandon Anaya MD Lymphocytes/100 WBC (Bld) 28 % Normal 24-44 [facility] Comment on above: Performed By: #### C DP, CP, LIP, TROPI, LIPRF, GLYHGB #### [address] [address] [employer] Officer: Brandon Anaya MD Monocytes (Bld) [#/Vol] 0.50 10*3/uL Normal 0.1-0.8 [facility] Comment on above: Performed By: #### C DP, CP, LIP, TROPI, LIPRF, GLYHGB #### [address] [address] [employer] Officer: Brandon Anaya MD Monocytes/100 WBC (Bld) 5 % Normal 1-7 [facility] Comment on above: Performed By: #### C DP, CP, LIP, TROPI, LIPRF, GLYHGB #### [address] [address] [employer] Officer: Brandon Anaya MD Morphology Alfredo (Bld) [Interp] ANISOCYTOSIS PRESENT Normal [facility] Comment on above: Performed By: #### C DP, CP, LIP, TROPI, LIPRF, GLYHGB #### [address] [address] [employer]: Brandon Anaya MD Neutrophil (Seg) 62 % Normal 36-66 [facility] Comment on above: Performed By: #### C DP, CP, LIP, TROPI, LIPRF, GLYHGB #### [address] [address] [employer] Officer: Brandon Anaya MD Erythrocyte distribution width (RBC) [Ratio] 14.7 % High 11.8-14.4 [facility] Comment on above: Performed By: #### C DP, CP, LIP, TROPI, LIPRF, GLYHGB #### [address] [address] [employer] Officer: Brandon Anaya MD Hematocrit (Bld) [Volume fraction] 39.5 % Normal 36.3-47.1 [facility] Comment on above: Performed By: #### C DP, CP, LIP, TROPI, LIPRF, GLYHGB #### [address] [address] [employer]: Brandon Anaya MD Hemoglobin (Bld) [Mass/Vol] 12.9 g/dL Normal 11.9-15.1 [facility] Comment on above: Performed By: #### C DP, CP, LIP, TROPI, LIPRF, GLYHGB #### [address] [address] [employer]: Brandon Anaya MD MCH (RBC) [Entitic mass] 29.5 pg Normal 25.2-33.5 [facility] Comment on above: Performed By: #### C DP, CP, LIP, TROPI, LIPRF, GLYHGB #### [address] [address] [employer]: Brandon Anaya MD MCHC (RBC) [Mass/Vol] 32.7 g/dL Normal 28.4-34.8 [facility] Comment on above: Performed By: #### C DP, CP, LIP, TROPI, LIPRF, GLYHGB #### [facility] [employer] [address] [place] [address] [employer]: Brandon Anaya MD MCV (RBC) [Entitic vol] 90.2 fL Normal 82.6-102.9 [facility] Comment on above: Performed By: #### C DP, CP, LIP, TROPI, LIPRF, GLYHGB #### [address] [address] [employer]: Brandon Anaya MD NRBC Automated 0.0 per 100 WBC Normal 0.0 [facility] Comment on above: Performed By: #### C DP, CP, LIP, TROPI, LIPRF, GLYHGB #### [address] [address] [employer]: Brandon Anaya MD Platelet mean volume (Bld) [Entitic vol] 10.1 fL Normal 8.1-13.5 [facility] Comment on above: Performed By: #### C DP, CP, LIP, TROPI, LIPRF, GLYHGB #### [address] [address] [employer]: Brandon Anaya MD Platelets (Bld) [#/Vol] 190 10*3/uL Normal 138-453 [facility] Comment on above: Performed By: #### C DP, CP, LIP, TROPI, LIPRF, GLYHGB #### [address] [address] [employer]: Brandon Anaya MD RBC (Bld) [#/Vol] 4.38 10*6/uL Normal 3.95-5.11 [facility] Comment on above: Performed By: #### C DP, CP, LIP, TROPI, LIPRF, GLYHGB #### [address] [address] [employer]: Brandon Anaya MD WBC (Bld) [#/Vol] 10.0 10*3/uL Normal 3.5-11.3 [facility] Comment on above: Performed By: #### C DP, CP, LIP, TROPI, LIPRF, GLYHGB #### [address] [address] [employer]: Brandon Anaya MD Auto Diff Performed NOT REPORTED Normal [facility] Comment on above: Performed By: #### C DP, CP, LIP, TROPI, LIPRF, GLYHGB #### [address] [address] [employer]: Brandon Anaya MD Platelets (Bld) [#/Vol] NOT REPORTED Normal [facility] Comment on above: Performed By: #### C DP, CP, LIP, TROPI, LIPRF, GLYHGB #### [address] [address] [employer]: Brandon Anaya MD RBC morphology finding Nom (Bld) NOT REPORTED Normal [facility] Comment on above: Performed By: #### C DP, CP, LIP, TROPI, LIPRF, GLYHGB #### [address] [address] [employer]: Brandon Anaya MD WBC Morphology NOT REPORTED Normal [facility] Comment on above: Performed By: #### C DP, CP, LIP, TROPI, LIPRF, GLYHGB #### [address] [address] [employer]: Brandon Anaya MD METANEPHRINES PLASMA FREEon 10-14-2019 Metaneph/Plasma Interp See Note [facility], [place] Comment on above: (NOTE) [...] should be considered. See Compliance Statement B: [employer] Performed By: [employer] [address] [place] [address] [employer] Supervisor: Nik Rosas MD, MS Metanephrine 0.14 nmol/L 0 - 0.49 nmol/L [facility], [place] Normetanephrine 0.73 nmol/L 0 - 0.89 nmol/L [facility] Metanephrine, Plasmaon 10-13 Metaneph Interp See Note Normal [facility] Comment on above: Result Comment: [...] should be considered. See Compliance Statement B: [employer] Performed By: [employer] [address] [place] [id number] [employer] [facility] Supervisor: Nik Rosas MD, MS Performed By: #### C JUAN GARZA, LIP, TROPI, LIPRF, GLYHGB #### [employer] [address] [place] [phone] [employer]: Brandon Anaya MD Metanephrine 0.14 nmol/L Normal 0.00-0.49 [facility] Comment on above: Performed By: #### C DP, CP, LIP, TROPI, LIPRF, GLYHGB #### [facility] [employer] [address] [place] [address] [phone] [employer]: Brandon Anaya MD Normetanephrine 0.73 nmol/L Normal 0.00-0.89 [facility] Comment on above: Performed By: #### C DP, CP, LIP, TROPI, LIPRF, GLYHGB #### [facility] [employer] [address] [place] [address] [phone] [employer]: Brandon Anaya MD POC Glucose Fingerstickon Glucose [Mass/Vol] 86 mg/dL 65 - 105 mg/dL [place] Glucose [Mass/Vol] 105 mg/dL 65 - 105 mg/dL [place] Glucose [Mass/Vol] 159 mg/dL High 65 - 105 mg/dL [place] Interpretation and review of laboratory results Abnormal [place] Glucose [Mass/Vol] 113 mg/dL High 65 - 105 mg/dL [place] Interpretation and review of laboratory results Abnormal [place] T. pallidum Abon 10-14-2019 T. pallidum, IgG NONREACTIVE NONREACTIVE [place] Comment on above: T. pallidum antibodies are not detected. There is no serological evidence of infection with T. pallidum (early primary syphilis cannot be excluded). Retest in 2-4 weeks if syphilis is clinically suspect. T.pallidum Ab Screenon 10-13 T.pallidum Ab Screen NONREACTIVE Normal NR [facility] Comment on above: Result Comment: T. pallidum antibodies are not detected. There is no serological evidence of infection with T. pallidum (early primary syphilis cannot be excluded). Retest in 2-4 weeks if syphilis is clinically suspect. Performed By: #### C DP, CP, LIP, TROPI, LIPRF, GLYHGB #### [facility] [employer] [address] [place] [address] [phone] [employer]: Brandon Anaya MD AMMONIAon 10-13-2019 Ammonia (P) [Mass/Vol] 28 umol/L 11 - 51 umol/L [place] Ammoniaon 10-13-2019 Ammonia (P) [Mass/Vol] 28 umol/L Normal -51 [facility] Comment on above: Performed By: #### C DP, CP, LIP, TROPI, LIPRF, GLYHGB #### [facility] [address] [place], [place] [phone] [employer]: Brandon Anaya MD BLOOD GAS, VENOUSon 10-13-19 20 Andrés Test NOT REPORTED [place] aPTT Coag (Bld) [Time] 37.0 [place] Carboxyhemoglobin 1.3 % 0 - 5 % [place] Comment on above: Reference Range: Non-Smokers 0-2% Average Smoker 2-4% Heavy Smoker <10% FIO2 ROOM AIR [place] HCO3, Venous 28.4 mmol/L 24 - 30 mmol/L [place] Interpretation and review of laboratory results Abnormal [place] Methemoglobin NOT REPORTED 0 - 1.5 % [place] Mode NOT REPORTED [place] Negative Base Excess, Noah NOT REPORTED 0 - 2 mmol/L [place] NOTIFICATION NOT REPORTED [place] NOTIFICATION TIME NOT REPORTED [place] O2 Device/Flow/% NOT REPORTED [place] Oxygen saturation in Blood 78.1 % 60 - 85 % [place] Oxyhemoglobin NOT REPORTED 95 - 98 % [place] pCO2, Noah 42.6 [place] pCO2, Noah, Temp Adj NOT REPORTED [place] Peep/Cpap NOT REPORTED [place] pH, Noah 7.439 High [place] pH, Noah, Temp Adj NOT REPORTED [place] pO2, Noah 41.1 [place] pO2, Noah, Temp Adj NOT REPORTED [place] Positive Base Excess, Noah 4.2 mmol/L High 0 - 2 mmol/L [facility] [place] PSV NOT REPORTED [facility], [place] Pt. Position NOT REPORTED [facility] Sample Site NOT REPORTED [place] Set Rate NOT REPORTED [place] Text for Respiratory NOT REPORTED [facility], [place] Total Hb NOT REPORTED 12 - 16 g/dl [facility], [place] Total Rate NOT REPORTED [facility] VT NOT REPORTED [facility] Basic Metab w/rfx MGon 10-12 Potassium [Moles/Vol] 3.4 mmol/L Low 3.7-5.3 [facility] Comment on above: Performed By: #### C DP, CP, LIP, TROPI, LIPRF, GLYHGB #### [address] [address] [employer]: Brandon Anaya MD (cont.) [facility] Comment on above: Result Comment: Aver age GFR for 70 or more years old: 75 mL/min/1.73sq m Chronic Kidney Disease: <60 mL/min/1.73sq m Kidney failure: <15 mL/min/1.73sq m eGFR calculated using average adult body mass. Additional eGFR calculator available at: http://www.[employer]/multiple_crcl_2012.htm Performed By: #### C DP, CP, LIP, TROPI, LIPRF, GLYHGB #### [employer] [address] [place], [place] [phone] [employer]: Brandon Anaya MD Anion gap [Moles/Vol] 16 mmol/L Normal 9-17 [facility] Comment on above: Performed By: #### C DP, CP, LIP, TROPI, LIPRF, GLYHGB #### [address] [address] [employer]: Brandon Anaya MD Calcium [Mass/Vol] 9.0 mg/dL Normal 8.6-10.4 [facility] Comment on above: Performed By: #### C DP, CP, LIP, TROPI, LIPRF, GLYHGB #### [facility] [address] [place] [phone] [employer]: Brandon Anaya MD Chloride [Moles/Vol] 90 mmol/L Low 98-107 [facility] Comment on above: Performed By: #### C DP, CP, LIP, TROPI, LIPRF, GLYHGB #### [facility] [address] [place] [phone] [employer]: Brandon Anaya MD CO2 [Moles/Vol] 25 mmol/L Normal 20-31 [facility] Comment on above: Performed By: #### C DP, CP, LIP, TROPI, LIPRF, GLYHGB #### [address] [address] [employer]: Brandon Anaya MD Creatinine [Mass/Vol] 0.47 mg/dL Low 0.50-0.90 [facility] Comment on above: Performed By: #### C DP, CP, LIP, TROPI, LIPRF, GLYHGB #### [address] [address] [employer]: Brandon Anaya MD GFR, Amer >60 Normal >60 [facility] Comment on above: Performed By: #### C DP, CP, LIP, TROPI, LIPRF, GLYHGB #### [facility] [employer] [address] [place] [phone] [employer]: Brandon Anaya MD GFR,non Amer >60 Normal >60 [facility] Comment on above: Performed By: #### C DP, CP, LIP, TROPI, LIPRF, GLYHGB #### [facility] [employer] [address] [place] [address] [employer]: Brandon Anaya MD Glucose [Mass/Vol] 113 mg/dL High 70-99 [facility] Comment on above: Performed By: #### C DP, CP, LIP, TROPI, LIPRF, GLYHGB #### [facility] [employer] [address] [place] [address] [phone] [employer]: Brandon Anaya MD Sodium [Moles/Vol] 131 mmol/L Low 135-144 [facility] Comment on above: Performed By: #### C DP, CP, LIP, TROPI, LIPRF, GLYHGB #### [facility] [employer] [address] [place] [address] [phone] [employer]: Brandon Anaya MD Urea nitrogen [Mass/Vol] 16 mg/dL Normal - [facility] Comment on above: Performed By: #### C DP, CP, LIP, TROPI, LIPRF, GLYHGB #### [facility] [employer] [address] [place] [address] [phone] [employer]: Brandon Anaya MD BUN/CRE Ratio NOT REPORTED Normal 11-13 [facility] Comment on above: Performed By: #### C DP, CP, LIP, TROPI, LIPRF, GLYHGB #### [facility] [employer] [address] [place] [address] [phone] [employer]: Brandon Anaya MD Staging: NOT REPORTED Normal [facility] Comment on above: Performed By: #### C DP, CP, LIP, TROPI, LIPRF, GLYHGB #### [facility] [employer] [address] [place] [phone] [employer]: Brandon Anaya MD Basic Metabolic Panel w/ Ref kervin to MGon 10-13-2019 Anion gap [Moles/Vol] 16 mmol/L 9 - 17 mmol/L [place] Bun/Cre Ratio NOT REPORTED [place] Calcium [Mass/Vol] 9.0 mg/dL 8.6 - 10. 4 mg/dL [place] Chloride [Moles/Vol] 90 mmol/L Low 98 - 10 7 mmol/L [place] CO2 [Moles/Vol] 25 mmol/L 20 - 31 mmol/L [place] Creatinine [Mass/Vol] 0.47 mg/dL Low 0.5 - 0.9 mg/dL [place] GFR >60 >60 mL/min [place] GFR Non- >60 >60 mL/min [place] GFR/1.73 sq M predicted among non-blacks MDRD (S/P/Bld) [Vol rate/Area] NOT REPORTED [place] GFR/1.73 sq M predicted among non-blacks MDRD (S/P/Bld) [Vol rate/Area] [place] Comment on above: Average GFR for 70 o r more years old: 75 mL/min/1.73sq m Chronic Kidney Disease: <60 mL/min/1.73sq m Kidney failure: <15 mL/min/1.73sq m eGFR calculated using average adult body mass. Additional eGFR calculator available at: http://www.[employer]/multiple_crcl_2011.htm Glucose [Mass/Vol] 113 mg/dL High 70 - 99 mg/dL [place] Interpretation and review of laboratory results Abnormal [place] Potassium [Moles/Vol] 3.4 mmol/L Low 3.7 - 5.3 mmol/L [place] Sodium [Moles/Vol] 131 mmol/L Low 135 - 144 mmol/L [place] Urea nitrogen [Mass/Vol] 16 mg/dL 8 - 23 mg/dL [place] CBC auto differentialon 09-24 Basophils (Bld) [#/Vol] 0.07 10*3/uL [place] Basophils/100 WBC (Bld) 1 % 0 - 2 % [place] Differential Type NOT REPORTED [place] Eosinophils (Bld) [#/Vol] 10*3/uL [place] Eosinophils/100 WBC (Bld) 0 % Low 1 - 4 % [place] Erythrocyte distribution width (RBC) [Ratio] 15.0 % High 11.8 - 14.4 % [place] Hematocrit (Bld) [Volume fraction] 45.5 % 36.3 - 47.1 % [place] Hemoglobin (Bld) [Mass/Vol] 14.5 g/dL 11.9 - 15.1 g/dL [place] Immature granulocytes (Bld) [#/Vol] 0.14 10*3/uL [place] Immature granulocytes (Bld) [#/Vol] 1 % High 0 [place] Interpretation and review of laboratory results Abnormal [place] Lymphocytes (Bld) [#/Vol] 2.84 10*3/uL [place] Lymphocytes/100 WBC (Bld) 23 % Low 24 - 43 % [place] MCH (RBC) [Entitic mass] 29.8 pg 25.2 - 33.5 pg [place] MCHC (RBC) [Mass/Vol] 31.9 g/dL 28.4 - 34.8 g/dL [place] MCV (RBC) [Entitic vol] 93.4 fL 82.6 - 102.9 fL [place] Monocytes (Bld) [#/Vol] 1.22 10*3/uL [place] Monocytes/100 WBC (Bld) 10 % 3 - 12 % [place] Platelet mean volume (Bld) [Entitic vol] 10.5 fL 8.1 - 13.5 fL [place] Platelets (Bld) [#/Vol] NOT REPORTED [place] Platelets (Bld) [#/Vol] 210 10*3/uL [place] RBC (Bld) [#/Vol] 4.87 10*6/uL 3.95 - 5.1 1 m/uL [place] RBC morphology finding Nom (Bld) ANISOCYTOSIS PRESENT [place] Segmented neutrophils/100 WBC (Bld) 65 % 36 - 65 % [place] Segs Absolute 8.01 [place] WBC (Bld) [#/Vol] 12.3 10*3/uL [place] WBC (Bld) [#/Vol] 0.0 10*3/uL 0.0 per 10 0 WBC [place] WBC Morphology NOT REPORTED [place] CBC with Diffon 10-13-2019 Abs. Basophil 0.07 k/uL Normal 0.00-0.20 [facility] Comment on above: Performed By: #### C DP, CP, LIP, TROPI, LIPRF, GLYHGB #### [address] [address] [employer]: Brandon Anaya MD Abs.Imm.Granulocyte 0.14 k/uL Normal 0.00-0.30 [facility] Comment on above: Performed By: #### C DP, CP, LIP, TROPI, LIPRF, GLYHGB #### [address] [address] [employer]: Brandon Anaya MD Abs.Neutrophil (Seg) 8.01 k/uL Normal 1.50-8.10 [facility] Comment on above: Performed By: #### C DP, CP, LIP, TROPI, LIPRF, GLYHGB #### [facility] [employer] [address] [place] [address] [employer]: Brandon Anaya MD Basophils/100 WBC (Bld) 1 % Normal 0-2 [facility] Comment on above: Performed By: #### C DP, CP, LIP, TROPI, LIPRF, GLYHGB #### [facility] [employer] [address] [place] [phone] [employer]: Brandon Anaya MD Eosinophils (Bld) [#/Vol] 10*3/uL Normal 0.00-0.44 [facility] Comment on above: Performed By: #### C DP, CP, LIP, TROPI, LIPRF, GLYHGB #### [address] [address] [employer]: Brandon Anaya MD Eosinophils/100 WBC (Bld) 0 % Low 1-4 [facility] Comment on above: Performed By: #### C DP, CP, LIP, TROPI, LIPRF, GLYHGB #### [facility] [employer] [address] [place] [phone] [employer]: Brandon Anaya MD Erythrocyte distribution width (RBC) [Ratio] 15.0 % High 11.8-14.4 [facility] Comment on above: Performed By: #### C DP, CP, LIP, TROPI, LIPRF, GLYHGB #### [place] [address] [employer]: Brandon Anaya MD Hematocrit (Bld) [Volume fraction] 45.5 % Normal 36.3-47.1 [facility] Comment on above: Performed By: #### C DP, CP, LIP, TROPI, LIPRF, GLYHGB #### [facility] [employer] [address] [place] [address] [employer]: Brandon Anaya MD Hemoglobin (Bld) [Mass/Vol] 14.5 g/dL Normal 11.9-15.1 [facility] Comment on above: Performed By: #### C DP, CP, LIP, TROPI, LIPRF, GLYHGB #### [place] [address] [employer]: Brandon Anaya MD Immature granulocytes (Bld) [#/Vol] 1 % High 0 [facility] Comment on above: Performed By: #### C DP, CP, LIP, TROPI, LIPRF, GLYHGB #### [facility] [employer] [address] [place] [phone] [employer]: Brandon Anaya MD Lymphocytes (Bld) [#/Vol] 2.84 10*3/uL Normal 1.10-3.70 [facility] Comment on above: Performed By: #### C DP, CP, LIP, TROPI, LIPRF, GLYHGB #### [address] [address] [employer]: Brandon Anaya MD Lymphocytes/100 WBC (Bld) 23 % Low 24-43 [facility] Comment on above: Performed By: #### C DP, CP, LIP, TROPI, LIPRF, GLYHGB #### [address] [address] [employer]: Brandon Anaya MD MCH (RBC) [Entitic mass] 29.8 pg Normal 25.2-33.5 [facility] Comment on above: Performed By: #### C DP, CP, LIP, TROPI, LIPRF, GLYHGB #### [place] [address] [employer]: Brandon Anaya MD MCHC (RBC) [Mass/Vol] 31.9 g/dL Normal 28.4-34.8 [facility] Comment on above: Performed By: #### C DP, CP, LIP, TROPI, LIPRF, GLYHGB #### [address] [address] [employer]: Brandon Anaya MD MCV (RBC) [Entitic vol] 93.4 fL Normal 82.6-102.9 [facility] Comment on above: Performed By: #### C DP, CP, LIP, TROPI, LIPRF, GLYHGB #### [place] [address] [employer]: Brandon Anaya MD Monocytes (Bld) [#/Vol] 1.22 10*3/uL High 0.10-1.20 [facility] Comment on above: Performed By: #### C DP, CP, LIP, TROPI, LIPRF, GLYHGB #### [place] [address] [employer]: Brandon Anaya MD Monocytes/100 WBC (Bld) 10 % Normal 3-12 [facility] Comment on above: Performed By: #### C DP, CP, LIP, TROPI, LIPRF, GLYHGB #### [address] [address] [employer]: Brandon Anaya MD Neutrophil (Seg) 65 % Normal 36-65 [facility] Comment on above: Performed By: #### C DP, CP, LIP, TROPI, LIPRF, GLYHGB #### [address] [address] [employer]: Brandon Anaya MD NRBC Automated 0.0 per 100 WBC Normal 0.0 [facility] Comment on above: Performed By: #### C DP, CP, LIP, TROPI, LIPRF, GLYHGB #### [address] [address] [employer]: Brandon Anaya MD Platelet mean volume (Bld) [Entitic vol] 10.5 fL Normal 8.1-13.5 [facility] Comment on above: Performed By: #### C DP, CP, LIP, TROPI, LIPRF, GLYHGB #### [address] [address] [employer]: Brandon Anaya MD Platelets (Bld) [#/Vol] 210 10*3/uL Normal 138-453 [facility] Comment on above: Performed By: #### C DP, CP, LIP, TROPI, LIPRF, GLYHGB #### [address] [address] [employer]: Brandon Anaya MD RBC (Bld) [#/Vol] 4.87 10*6/uL Normal 3.95-5.11 [facility] Comment on above: Performed By: #### C DP, CP, LIP, TROPI, LIPRF, GLYHGB #### [address] [address] [employer]: Brandon Anaya MD RBC morphology finding Nom (Bld) ANISOCYTOSIS PRESENT Normal [facility] Comment on above: Performed By: #### C DP, CP, LIP, TROPI, LIPRF, GLYHGB #### [address] [address] [employer]: Brandon Anaya MD WBC (Bld) [#/Vol] 12.3 10*3/uL High 3.5-11.3 [facility] Comment on above: Performed By: #### C DP, CP, LIP, TROPI, LIPRF, GLYHGB #### [address] [address] [employer]: Brandon Anaya MD Auto Diff Performed NOT REPORTED Normal [facility] Comment on above: Performed By: #### C DP, CP, LIP, TROPI, LIPRF, GLYHGB #### [address] [address] [employer]: Brandon Anaya MD Platelets (Bld) [#/Vol] NOT REPORTED Normal [facility] Comment on above: Performed By: #### C DP, CP, LIP, TROPI, LIPRF, GLYHGB #### [address] [address] [employer]: Brandon Anaya MD WBC Morphology NOT REPORTED Normal [facility] Comment on above: Performed By: #### C DP, CP, LIP, TROPI, LIPRF, GLYHGB #### [address] [address] [employer]: Brandon Anaya MD Magnesiumon 10-13-2019 Magnesium [Mass/Vol] 2.2 mg/dL Normal 1.6-2.6 [facility] Comment on above: Performed By: #### C DP, CP, LIP, TROPI, LIPRF, GLYHGB #### [facility] [employer] [address] [place] [address] [phone] [employer]: Brandon Anaya MD Magnesium [Mass/Vol] 2.2 mg/dL 1.6 - 2 .6 mg/dL [place] POC Glucose Fingerstickon Glucose [Mass/Vol] 121 mg/dL High 65 - 105 mg/dL [place] Interpretation and review of laboratory results Abnormal [place] Glucose [Mass/Vol] 100 mg/dL 65 - 105 mg/dL [place] Glucose [Mass/Vol] 104 mg/dL 65 - 105 mg/dL [place] Glucose [Mass/Vol] 123 mg/dL High 65 - 105 mg/dL [place] Interpretation and review of laboratory results Abnormal [place] Venous Blood Gaseson 020 Body Temp. 37.0 Normal [facility] Comment on above: Performed By: #### C DP, CP, LIP, TROPI, LIPRF, GLYHGB #### [facility] [employer] [address] [place] [address] [phone] [employer]: Brandon Anaya MD Carboxy Hgb 1.3 % Normal 0-5 [facility] Comment on above: Result Comment: Reference Range: Non-Smokers 0-2% Average Smoker 2-4% Heavy Smoker <10% Performed By: #### C DP, CP, LIP, TROPI, LIPRF, GLYHGB #### [employer] [address] [place] [address] [phone] [employer]: Brandon Anaya MD FIO2 ROOM AIR Normal [facility] Comment on above: Performed By: #### C DP, CP, LIP, TROPI, LIPRF, GLYHGB #### [employer] [address] [place] [address] [phone] [employer]: Brandon Anaya MD HCO3 (Bld) [Moles/Vol] 28.4 mmol/L Normal 24-30 [facility] Comment on above: Performed By: #### C DP, CP, LIP, TROPI, LIPRF, GLYHGB #### [address] [address] [employer]: Brandon Anaya MD Oxygen (Bld) [Partial pressure] 41.1 mm[Hg] Normal 30-50 [facility] Comment on above: Performed By: #### C DP, CP, LIP, TROPI, LIPRF, GLYHGB #### [address] [address] [employer]: Brandon Anaya MD Oxygen saturation in Blood 78.1 % Normal 60.0-85.0 [facility] Comment on above: Performed By: #### C DP, CP, LIP, TROPI, LIPRF, GLYHGB #### [address] [address] [employer]: Brandon Anaya MD pCO2 42.6 Normal 39-55 [facility] Comment on above: Performed By: #### C DP, CP, LIP, TROPI, LIPRF, GLYHGB #### [address] [address] [employer]: Brandon Anaya MD pH (Bld) 7.439 [pH] High 7.320-7.420 [facility] Comment on above: Performed By: #### C DP, CP, LIP, TROPI, LIPRF, GLYHGB #### [address] [address] [employer]: Brandon Anaya MD Positive Base Excess 4.2 mmol/L High 0.0-2.0 [facility] Comment on above: Performed By: #### C DP, CP, LIP, TROPI, LIPRF, GLYHGB #### [address] [address] [employer]: Brandon Anaya MD Andrés Test NOT REPORTED Normal [facility] Comment on above: Performed By: #### C DP, CP, LIP, TROPI, LIPRF, GLYHGB #### [facility] [employer] [address] [place] [phone] [employer]: Brandon Anaya MD Methemoglobin NOT REPORTED Normal 0.0-1.5 [facility] Comment on above: Performed By: #### C DP, CP, LIP, TROPI, LIPRF, GLYHGB #### [address] [address] [employer]: Brandon Anaya MD Mode NOT REPORTED Normal [facility] Comment on above: Performed By: #### C DP, CP, LIP, TROPI, LIPRF, GLYHGB #### [address] [address] [employer]: Brandon Anaya MD Negative Base Excess NOT REPORTED Normal 0.0-2.0 [facility] Comment on above: Performed By: #### C DP, CP, LIP, TROPI, LIPRF, GLYHGB #### [facility] [employer] [address] [place] [phone] [employer]: Brandon Anaya MD Notification Time NOT REPORTED Normal [facility] Comment on above: Performed By: #### C DP, CP, LIP, TROPI, LIPRF, GLYHGB #### [facility] [employer] [address] [place] [address] [employer]: Brandon Anaya MD Notification: NOT REPORTED Normal [facility] Comment on above: Performed By: #### C DP, CP, LIP, TROPI, LIPRF, GLYHGB #### [facility] [employer] [address] [place] [address] [employer]: Brandon Anaya MD O2 Device/Flow/% NOT REPORTED Normal [facility] Comment on above: Performed By: #### C DP, CP, LIP, TROPI, LIPRF, GLYHGB #### [address] [address] [employer]: Brandon Anaya MD Oxyhemoglobin NOT REPORTED Normal 95.0-98.0 [facility] Comment on above: Performed By: #### C DP, CP, LIP, TROPI, LIPRF, GLYHGB #### [address] [address] [employer]: Brandon Anaya MD Pco2 Adj'd for Temp. NOT REPORTED Normal 39-55 [facility] Comment on above: Performed By: #### C DP, CP, LIP, TROPI, LIPRF, GLYHGB #### [address] [address] [employer]: Brandon Anaya MD PEEP/CPAP NOT REPORTED Normal [facility] Comment on above: Performed By: #### C DP, CP, LIP, TROPI, LIPRF, GLYHGB #### [address] [address] [employer]: Brandon Anaya MD pH Adjst'd for Temp. NOT REPORTED Normal 7.320-7.420 [facility] Comment on above: Performed By: #### C DP, CP, LIP, TROPI, LIPRF, GLYHGB #### [address] [address] [employer]: Brandon Anaya MD pO2 Adj'd for Temp. NOT REPORTED Normal 30-50 [facility] Comment on above: Performed By: #### C DP, CP, LIP, TROPI, LIPRF, GLYHGB #### [address] [address] [employer]: Brandon Anaya MD PSV NOT REPORTED Normal [facility] Comment on above: Performed By: #### C DP, CP, LIP, TROPI, LIPRF, GLYHGB #### [address] [address] [employer]: Brandon Anaya MD Pt. Position NOT REPORTED Normal [facility] Comment on above: Performed By: #### C DP, CP, LIP, TROPI, LIPRF, GLYHGB #### [address] [address] [employer]: Brandon Anaya MD Set Rate NOT REPORTED Normal [facility] Comment on above: Performed By: #### C DP, CP, LIP, TROPI, LIPRF, GLYHGB #### [address] [address] [employer]: Brandon Anaya MD Site Drawn NOT REPORTED Normal [facility] Comment on above: Performed By: #### C DP, CP, LIP, TROPI, LIPRF, GLYHGB #### [address] [address] [employer]: Brandon Anaya MD Text for Respiratory NOT REPORTED Normal [facility] Comment on above: Performed By: #### C DP, CP, LIP, TROPI, LIPRF, GLYHGB #### [address] [address] [employer]: Brandon Anaya MD Total Hb NOT REPORTED Normal 12.0-16.0 [facility] Comment on above: Performed By: #### C DP, CP, LIP, TROPI, LIPRF, GLYHGB #### [facility] [employer] [address] [place] [address] [employer]: Brandon Anaya MD Total Rate NOT REPORTED Normal [facility] Comment on above: Performed By: #### C DP, CP, LIP, TROPI, LIPRF, GLYHGB #### [facility] [place] [address] [employer]: Brandon Anaya MD VT NOT REPORTED Normal [facility] Comment on above: Performed By: #### C DP, CP, LIP, TROPI, LIPRF, GLYHGB #### [facility] [address] [place] [address] [employer]: Brandon [facility] Comment: NOT REPORTED Normal [facility] Comment on above: Performed By: #### C DP, CP, LIP, TROPI, LIPRF, GLYHGB #### [address] [address] [employer]: Brandon Anaya MD Basic Metab w/rfx [facility] 10-11 Potassium [Moles/Vol] 3.3 mmol/L Low 3.7-5.3 [facility] Comment on above: Performed By: #### C DP, CP, LIP, TROPI, LIPRF, GLYHGB #### [address] [address] [employer]: Brandon Anaya MD (cont.) [facility] Comment on above: Result Comment: Aver age GFR for 70 or more years old: 75 mL/min/1.73sq m Chronic Kidney Disease: <60 mL/min/1.73sq m Kidney failure: <15 mL/min/1.73sq m eGFR calculated using average adult body mass. Additional eGFR calculator available at: http://www.Pulmonx.com/multiple_crcl_2012.htm Performed By: #### C DP, CP, LIP, TROPI, LIPRF, GLYHGB #### [address] [address] [employer]: Brandon Anaya MD Anion gap [Moles/Vol] 12 mmol/L Normal 9-17 [facility] Comment on above: Performed By: #### C DP, CP, LIP, TROPI, LIPRF, GLYHGB #### [address] [address] [employer]: Brandon Anaya MD Calcium [Mass/Vol] 8.6 mg/dL Normal 8.6-10.4 [facility] Comment on above: Performed By: #### C DP, CP, LIP, TROPI, LIPRF, GLYHGB #### [address] [address] [employer]: Brandon Anaya MD Chloride [Moles/Vol] 94 mmol/L Low 98-107 [facility] Comment on above: Performed By: #### C DP, CP, LIP, TROPI, LIPRF, GLYHGB #### [address] [address] [employer]: Brandon Anaya MD CO2 [Moles/Vol] 26 mmol/L Normal 20-31 [facility] Comment on above: Performed By: #### C DP, CP, LIP, TROPI, LIPRF, GLYHGB #### [address] [address] [employer]: Brandon Anaya MD Creatinine [Mass/Vol] 0.46 mg/dL Low 0.50-0.90 [facility] Comment on above: Performed By: #### C DP, CP, LIP, TROPI, LIPRF, GLYHGB #### [address] [address] [employer]: Brandon Anaya MD GFR, Amer >60 Normal >60 [facility] Comment on above: Performed By: #### C DP, CP, LIP, TROPI, LIPRF, GLYHGB #### [address] [address] [employer]: Brandon Anaya MD GFR,non Amer >60 Normal >60 [facility] Comment on above: Performed By: #### C DP, CP, LIP, TROPI, LIPRF, GLYHGB #### [address] [address] [employer]: Brandon Anaya MD Glucose [Mass/Vol] 136 mg/dL High 70-99 [facility] Comment on above: Performed By: #### C DP, CP, LIP, TROPI, LIPRF, GLYHGB #### [address] [address] [employer]: Brandon Anaya MD Sodium [Moles/Vol] 132 mmol/L Low 135-144 [facility] Comment on above: Performed By: #### C DP, CP, LIP, TROPI, LIPRF, GLYHGB #### [address] [address] [employer]: Brandon Anaya MD Urea nitrogen [Mass/Vol] 16 mg/dL Normal 8-23 [facility] Comment on above: Performed By: #### C DP, CP, LIP, TROPI, LIPRF, GLYHGB #### [address] [address] [employer]: Brandon Anaya MD BUN/CRE Ratio NOT REPORTED Normal 9-20 [facility] Comment on above: Performed By: #### C DP, CP, LIP, TROPI, LIPRF, GLYHGB #### [facility] [employer] [address] [place] [address] [employer]: Brandon Anaya MD Staging: NOT REPORTED Normal [facility] Comment on above: Performed By: #### C DP, CP, LIP, TROPI, LIPRF, GLYHGB #### [facility] [employer] [address] [place] [address] [employer]: Brandon Anaya MD Basic Metabolic Panel w/ Ref kervin to [facility]on 10-12-2019 Anion gap [Moles/Vol] 12 mmol/L 9 - 17 mmol/L [place] Bun/Cre Ratio NOT REPORTED [place] Calcium [Mass/Vol] 8.6 mg/dL 8.6 - 10. 4 mg/dL [place] Chloride [Moles/Vol] 94 mmol/L Low 98 - 10 7 mmol/L [place] CO2 [Moles/Vol] 26 mmol/L 20 - 31 mmol/L [place] Creatinine [Mass/Vol] 0.46 mg/dL Low 0.5 - 0.9 mg/dL [place] GFR >60 >60 mL/min [place] GFR Non- >60 >60 mL/min [place] GFR/1.73 sq M predicted among non-blacks MDRD (S/P/Bld) [Vol rate/Area] [place] Comment on above: Average GFR for 70 o r more years old: 75 mL/min/1.73sq m Chronic Kidney Disease: <60 mL/min/1.73sq m Kidney failure: <15 mL/min/1.73sq m eGFR calculated using average adult body mass. Additional eGFR calculator available at: http://www.Zapcoder/multiple_crcl_2012.htm GFR/1.73 sq M predicted among non-blacks MDRD (S/P/Bld) [Vol rate/Area] NOT REPORTED [place] Glucose [Mass/Vol] 136 mg/dL High 70 - 99 mg/dL [place] Interpretation and review of laboratory results Abnormal [place] Potassium [Moles/Vol] 3.3 mmol/L Low 3.7 - 5.3 mmol/L [place] Sodium [Moles/Vol] 132 mmol/L Low 135 - 144 mmol/L [place] Urea nitrogen [Mass/Vol] 16 mg/dL 8 - 23 mg/dL [place] CBC auto differentialon 09-24 Basophils (Bld) [#/Vol] 0.04 10*3/uL [place] Basophils/100 WBC (Bld) 0 % 0 - 2 % [place] Differential Type NOT REPORTED [place] Eosinophils (Bld) [#/Vol] 10*3/uL [place] Eosinophils/100 WBC (Bld) 0 % Low 1 - 4 % [place] Erythrocyte distribution width (RBC) [Ratio] 14.7 % High 11.8 - 14.4 % [place] Hematocrit (Bld) [Volume fraction] 40.5 % 36.3 - 47.1 % [place] Hemoglobin (Bld) [Mass/Vol] 12.7 g/dL 11.9 - 15.1 g/dL [place] Immature granulocytes (Bld) [#/Vol] 0.11 10*3/uL [place] Immature granulocytes (Bld) [#/Vol] 1 % High 0 [place] Interpretation and review of laboratory results Abnormal [place] Lymphocytes (Bld) [#/Vol] 1.50 10*3/uL [place] Lymphocytes/100 WBC (Bld) 12 % Low 24 - 43 % [place] MCH (RBC) [Entitic mass] 29.4 pg 25.2 - 33.5 pg [place] MCHC (RBC) [Mass/Vol] 31.4 g/dL 28.4 - 34.8 g/dL [place] MCV (RBC) [Entitic vol] 93.8 fL 82.6 - 102.9 fL [place] Monocytes (Bld) [#/Vol] 0.87 10*3/uL [place] Monocytes/100 WBC (Bld) 7 % 3 - 12 % [place] Platelet mean volume (Bld) [Entitic vol] 10.7 fL 8.1 - 13.5 fL [place] Platelets (Bld) [#/Vol] 196 10*3/uL [place] Platelets (Bld) [#/Vol] NOT REPORTED [place] RBC (Bld) [#/Vol] 4.32 10*6/uL 3.95 - 5.1 1 m/uL [place] RBC morphology finding Nom (Bld) ANISOCYTOSIS PRESENT [place] Segmented neutrophils/100 WBC (Bld) 79 % High 36 - 65 % [place] Segs Absolute 9.64 [place] WBC (Bld) [#/Vol] 12.2 10*3/uL [place] WBC (Bld) [#/Vol] 0.0 10*3/uL 0.0 per 10 0 WBC [place] WBC Morphology NOT REPORTED [place] CBC with Diffon 10-12-2019 Abs. Basophil 0.04 k/uL Normal 0.00-0.20 [facility] Comment on above: Performed By: #### C DP, CP, LIP, TROPI, LIPRF, GLYHGB #### [address] [address] [employer]: Brandon Anaya MD Abs.Imm.Granulocyte 0.11 k/uL Normal 0.00-0.30 [facility] Comment on above: Performed By: #### C DP, CP, LIP, TROPI, LIPRF, GLYHGB #### [facility] [employer] [address] [place] [address] [employer]: Brandon Anaya MD Abs.Neutrophil (Seg) 9.64 k/uL High 1.50-8.10 [facility] Comment on above: Performed By: #### C DP, CP, LIP, TROPI, LIPRF, GLYHGB #### [facility] [employer] [address] [place] [address] [employer]: Brandon Anaya MD Basophils/100 WBC (Bld) 0 % Normal 0-2 [facility] Comment on above: Performed By: #### C DP, CP, LIP, TROPI, LIPRF, GLYHGB #### [facility] [employer] [address] [place] [address] [employer]: Brandon Anaya MD Eosinophils (Bld) [#/Vol] 10*3/uL Normal 0.00-0.44 [facility] Comment on above: Performed By: #### C DP, CP, LIP, TROPI, LIPRF, GLYHGB #### [address] [address] [employer]: Brandon Anaya MD Eosinophils/100 WBC (Bld) 0 % Low 1-4 [facility] Comment on above: Performed By: #### C DP, CP, LIP, TROPI, LIPRF, GLYHGB #### [place] [address] [employer]: Brandon Anaya MD Erythrocyte distribution width (RBC) [Ratio] 14.7 % High 11.8-14.4 [facility] Comment on above: Performed By: #### C DP, CP, LIP, TROPI, LIPRF, GLYHGB #### [place] [address] [employer]: Brandon Anaya MD Hematocrit (Bld) [Volume fraction] 40.5 % Normal 36.3-47.1 [facility] Comment on above: Performed By: #### C DP, CP, LIP, TROPI, LIPRF, GLYHGB #### [place] [address] [employer]: Brandon Anaya MD Hemoglobin (Bld) [Mass/Vol] 12.7 g/dL Normal 11.9-15.1 [facility] Comment on above: Performed By: #### C DP, CP, LIP, TROPI, LIPRF, GLYHGB #### [facility] [employer] [address] [place] [address] [employer]: Brandon Anaya MD Immature granulocytes (Bld) [#/Vol] 1 % High 0 [facility] Comment on above: Performed By: #### C DP, CP, LIP, TROPI, LIPRF, GLYHGB #### [address] [address] [employer]: Brandon Anaya MD Lymphocytes (Bld) [#/Vol] 1.50 10*3/uL Normal 1.10-3.70 [facility] Comment on above: Performed By: #### C DP, CP, LIP, TROPI, LIPRF, GLYHGB #### [address] [address] [employer]: Brandon Anaya MD Lymphocytes/100 WBC (Bld) 12 % Low 24-43 [facility] Comment on above: Performed By: #### C DP, CP, LIP, TROPI, LIPRF, GLYHGB #### [place] [address] [employer]: Brandon Anaya MD MCH (RBC) [Entitic mass] 29.4 pg Normal 25.2-33.5 [facility] Comment on above: Performed By: #### C DP, CP, LIP, TROPI, LIPRF, GLYHGB #### [place] [address] [employer]: Brandon Anaya MD MCHC (RBC) [Mass/Vol] 31.4 g/dL Normal 28.4-34.8 [facility] Comment on above: Performed By: #### C DP, CP, LIP, TROPI, LIPRF, GLYHGB #### [address] [address] [employer]: Brandon Anaya MD MCV (RBC) [Entitic vol] 93.8 fL Normal 82.6-102.9 [facility] Comment on above: Performed By: #### C DP, CP, LIP, TROPI, LIPRF, GLYHGB #### [address] [address] [employer]: Brandon Anaya MD Monocytes (Bld) [#/Vol] 0.87 10*3/uL Normal 0.10-1.20 [facility] Comment on above: Performed By: #### C DP, CP, LIP, TROPI, LIPRF, GLYHGB #### [address] [address] [employer]: Brandon Anaya MD Monocytes/100 WBC (Bld) 7 % Normal 3-12 [facility] Comment on above: Performed By: #### C DP, CP, LIP, TROPI, LIPRF, GLYHGB #### [address] [address] [employer]: Brandon Anaya MD Neutrophil (Seg) 79 % High 36-65 [facility] Comment on above: Performed By: #### C DP, CP, LIP, TROPI, LIPRF, GLYHGB #### [address] [address] [employer]: Brandon Anaya MD NRBC Automated 0.0 per 100 WBC Normal 0.0 [facility] Comment on above: Performed By: #### C DP, CP, LIP, TROPI, LIPRF, GLYHGB #### [address] [address] [employer]: Brandon Anaya MD Platelet mean volume (Bld) [Entitic vol] 10.7 fL Normal 8.1-13.5 [facility] Comment on above: Performed By: #### C DP, CP, LIP, TROPI, LIPRF, GLYHGB #### [address] [address] [employer] Officer: Brandon Anaya MD Platelets (Bld) [#/Vol] 196 10*3/uL Normal 138-453 [facility] Comment on above: Performed By: #### C DP, CP, LIP, TROPI, LIPRF, GLYHGB #### [address] [address] [employer]: Brandon Anaya MD RBC (Bld) [#/Vol] 4.32 10*6/uL Normal 3.95-5.11 [facility] Comment on above: Performed By: #### C DP, CP, LIP, TROPI, LIPRF, GLYHGB #### [address] [address] [employer]: Brandon Anaya MD RBC morphology finding Nom (Bld) ANISOCYTOSIS PRESENT Normal [facility] Comment on above: Performed By: #### C DP, CP, LIP, TROPI, LIPRF, GLYHGB #### [address] [address] [employer]: Brandon Anaya MD WBC (Bld) [#/Vol] 12.2 10*3/uL High 3.5-11.3 [facility] Comment on above: Performed By: #### C DP, CP, LIP, TROPI, LIPRF, GLYHGB #### [address] [address] [employer]: Brandon Anaya MD Auto Diff Performed NOT REPORTED Normal [facility] Comment on above: Performed By: #### C DP, CP, LIP, TROPI, LIPRF, GLYHGB #### [address] [address] [employer]: Brandon Anaya MD Platelets (Bld) [#/Vol] NOT REPORTED Normal [facility] Comment on above: Performed By: #### C DP, CP, LIP, TROPI, LIPRF, GLYHGB #### [address] [address] [employer]: Brandon Anaya MD WBC Morphology NOT REPORTED Normal [facility] Comment on above: Performed By: #### C DP, CP, LIP, TROPI, LIPRF, GLYHGB #### [employer] [address] [place], [place] [phone] [employer]: Brandon Anaya MD Magnesiumon 10-12-2019 Magnesium [Mass/Vol] 2.2 mg/dL Normal 1.6-2.6 [facility] Comment on above: Performed By: #### C DP, CP, LIP, TROPI, LIPRF, GLYHGB #### [facility] [address] [place], [place] [phone] [employer]: Brandon Anaya MD Magnesium [Mass/Vol] 2.2 mg/dL 1.6 - 2 .6 mg/dL [place] POC Glucose Fingerstickon Glucose [Mass/Vol] 117 mg/dL High 65 - 105 mg/dL [place] Interpretation and review of laboratory results Abnormal [place] Glucose [Mass/Vol] 115 mg/dL High 65 - 105 mg/dL [place] Interpretation and review of laboratory results Abnormal [place] Glucose [Mass/Vol] 123 mg/dL High 65 - 105 mg/dL [place] Interpretation and review of laboratory results Abnormal [place] Glucose [Mass/Vol] 117 mg/dL High 65 - 105 mg/dL [place] Interpretation and review of laboratory results Abnormal [place] URINALYSIS WITH MICROSCOPICo n 10-12-2019 Amorphous, UA NOT REPORTED None [place] Bacteria, UA NOT REPORTED None [place] Bilirubin Urine Negative NEGATIVE [place] Casts UA 0 TO 2 HYALINE Refer ence range defined for non-centrifuged specimen. [place] Color, UA YELLOW YELLOW [place] Crystals, UA NOT REPORTED None /HPF [place] Epithelial Cells UA 2 TO 5 [place] Glucose, Ur Negative NEGATIVE [place] Interpretation and review of laboratory results Abnormal [place] Ketones Ql (U) SMALL Abnormal NEGATIVE [place] Leukocyte esterase Test strip Ql (U) Negative NEGATIVE [place] Mucus, UA NOT REPORTED None [place] Nitrite, Urine Negative NEGATIVE [place] Other Observations UA NOT REPORTED NOT REQ. M [place] pH, UA 8.5 High [place] Protein (U) [Mass/Vol] Negative NEGATIVE [place] RBC (U) [#/Vol] TOO NUMEROUS TO COUNT [place] Comment on above: Reference range defi nya for non-centrifuged specimen. Renal Epithelial, UA NOT REPORTED 0 /HPF [place] Specific [place], UA 1.011 [place] Trichomonas, UA NOT REPORTED None [place] Turbidity UA TURBID Abnormal CLEAR [place] Urine Hgb Negative NEGATIVE [place] Urobilinogen, Urine Normal Normal [place] WBC, UA 0 TO 2 [place] Yeast, UA NOT REPORTED None [place] Urinalysis w/ Microon 2019 ----- Normal [facility] Comment on above: Performed By: #### C DP, CP, LIP, TROPI, LIPRF, GLYHGB #### [facility] [employer] [address] [place] [address] [employer]: Brandon Anaya MD Acetoacetic Acid,Ur SMALL Abnormal NEG [facility] Comment on above: Performed By: #### C DP, CP, LIP, TROPI, LIPRF, GLYHGB #### [facility] [employer] [address] [place] [address] [employer]: Brandon Anaya MD Bilirubin, SemiQt,Ur Negative Normal NEG [facility] Comment on above: Performed By: #### C DP, CP, LIP, TROPI, LIPRF, GLYHGB #### [facility] [address] [place] [address] [employer]: Brandon Anaya MD Casts LM.LPF (Urine sed) [#/Area] 0 TO 2 HYALINE Normal 0-8 [facility] Comment on above: Result Comment: Refe rence range defined for non-centrifuged specimen. Performed By: #### C DP, CP, LIP, TROPI, LIPRF, GLYHGB #### [address] [address] [employer]: Brandon Anaya MD Color (U) YELLOW Normal YEL [facility] Comment on above: Performed By: #### C DP, CP, LIP, TROPI, LIPRF, GLYHGB #### [address] [address] [employer]: Brandon Anaya MD Epithelial cells LM.HPF (Urine sed) [#/Area] 2 TO 5 Normal 0-5 [facility] Comment on above: Performed By: #### C DP, CP, LIP, TROPI, LIPRF, GLYHGB #### [address] [address] [employer]: Brandon Anaya MD Glucose Ql (U) Negative Normal NEG [facility] Comment on above: Performed By: #### C DP, CP, LIP, TROPI, LIPRF, GLYHGB #### [address] [address] [employer]: Brandon Anaya MD Hemoglobin, Ur Negative Normal NEG [facility] Comment on above: Performed By: #### C DP, CP, LIP, TROPI, LIPRF, GLYHGB #### [address] [address] [employer]: Brandon Anaya MD Leukocyte esterase Test strip Ql (U) Negative Normal NEG [facility] Comment on above: Performed By: #### C DP, CP, LIP, TROPI, LIPRF, GLYHGB #### [facility] [employer] [address] [place] [address] [employer]: Brandon Anaya MD Nitrite,Ur Negative Normal NEG [facility] Comment on above: Performed By: #### C DP, CP, LIP, TROPI, LIPRF, GLYHGB #### [facility] [address] [place] [address] [employer]: Brandon Anaya MD pH (U) 8.5 [pH] High 5.0-8.0 [facility] Comment on above: Performed By: #### C DP, CP, LIP, TROPI, LIPRF, GLYHGB #### [facility] [address] [place] [address] [employer]: Brandon Anaya MD Protein Ql (U) Negative Normal NEG [facility] Comment on above: Performed By: #### C DP, CP, LIP, TROPI, LIPRF, GLYHGB #### [facility] [employer] [address] [place] [address] [employer]: Bradnon Anaya MD RBC (U) [#/Vol] TOO NUMEROUS TO COUNT Normal 0-4 [facility] Comment on above: Result Comment: Refe rence range defined for non-centrifuged specimen. Performed By: #### C DP, CP, LIP, TROPI, LIPRF, GLYHGB #### [facility] [address] [place] [address] [employer]: Brandon Anaya MD Specific gravity (U) [Rel density] 1.011 Normal 1.005-1.030 [facility] Comment on above: Performed By: #### C DP, CP, LIP, TROPI, LIPRF, GLYHGB #### [facility] [address] [place] [address] [employer]: Brandon Anaya MD Turbidity TURBID Abnormal CLEAR [facility] Comment on above: Performed By: #### C DP, CP, LIP, TROPI, LIPRF, GLYHGB #### [facility] [address] [place] [phone] [employer]: Brandon Anaya MD Urobilinogen,Ur Normal Normal NORM [facility] Comment on above: Performed By: #### C DP, CP, LIP, TROPI, LIPRF, GLYHGB #### [address] [address] [employer]: Brandon Anaya MD WBC (U) [#/Vol] 0 TO 2 Normal 0-5 [facility] Comment on above: Performed By: #### C DP, CP, LIP, TROPI, LIPRF, GLYHGB #### [address] [address] [employer]: Brandon Anaya MD Amorphous sediment LM Ql (Urine sed) NOT REPORTED Normal NONE [facility] Comment on above: Performed By: #### C DP, CP, LIP, TROPI, LIPRF, GLYHGB #### [address] [address] [employer]: Brandon Anaya MD Bacteria LM.HPF (Urine sed) [#/Area] NOT REPORTED Normal NONE [facility] Comment on above: Performed By: #### C DP, CP, LIP, TROPI, LIPRF, GLYHGB #### [address] [address] [employer]: Brandon Anaya MD Crystals LM Nom (Urine sed) NOT REPORTED Normal NONE [facility] Comment on above: Performed By: #### C DP, CP, LIP, TROPI, LIPRF, GLYHGB #### [facility] [employer] [address] [place] [address] [employer]: Brandon Anaya MD Epithelial, Renal NOT REPORTED Normal 0 [facility] Comment on above: Performed By: #### C DP, CP, LIP, TROPI, LIPRF, GLYHGB #### [facility] [address] [place] [address] [employer]: Brandon Anyaa MD Mucus Strands NOT REPORTED Normal NONE [facility] Comment on above: Performed By: #### C DP, CP, LIP, TROPI, LIPRF, GLYHGB #### [address] [address] [employer]: Brandon Anaya MD Other Observations NOT REPORTED Normal NREQ [facility] Comment on above: Performed By: #### C DP, CP, LIP, TROPI, LIPRF, GLYHGB #### [address] [address] [employer]: Brandon Anaya MD Trichomonas NOT REPORTED Normal NONE [facility] Comment on above: Performed By: #### C DP, CP, LIP, TROPI, LIPRF, GLYHGB #### [address] [address] [employer]: Brandon Anaya MD Yeast LM Ql (Urine sed) NOT REPORTED Normal [facility] Comment on above: Performed By: #### C DP, CP, LIP, TROPI, LIPRF, GLYHGB #### [address] [address] [employer]: Brandon Anaya MD VL RENAL ARTERIAL DUPLEX COM PLETEon 10-12-2019 [facility] Vascular Renal Procedure Patient Name ALEYDA Date of Study 10/12/2019 ZACHARY Date of 1945 Gender Female Age 74 year(s) Race Room Number 2015 Corporate ID [id number] # Patient Acct [id number] # MR # [id number] [employer] Celena Juarez, JACEK, MS Interpreting Jamison Galo [...] The average kidney length is 10.75 cm. [facility]- [place], [place] Prieto, pn Incoming Cardio Results From [facility] - 10/12/2019 7:54 PM EDT [facility] Vascular Renal Procedure Patient Name ALEYDA Date of Study 10/12/2019 ZACHARY Date of 1945 Gender Female Age 74 year(s) Race Room Number 2015 Corporate ID [id number] # Patient Acct [id number] # MR # [id number] [employer] Celena Juarez RVT, RDMS Interpreting Jamison Galo [...] The average kidney length is 10.75 cm. [facility] [place], [place] XR CHEST PORTABLEon [...] Argentina Guzmán MD 10/11/19 Final result Normal [facility] Basic Metab w/rfx MGon 10-10 (cont.) Normal [facility] Comment on above: Result Comment: Aver age GFR for 70 or more years old: 75 mL/min/1.73sq m Chronic Kidney Disease: <60 mL/min/1.73sq m Kidney failure: <15 mL/min/1.73sq m eGFR calculated using average adult body mass. Additional eGFR calculator available at: http://www.[employer].NN LABS/multiple_crcl_2012.htm Performed By: #### C DP, CP, LIP, TROPI, LIPRF, GLYHGB #### [employer] [address] [place] [address] [employer]: Brandon Anaya MD Anion gap [Moles/Vol] 15 mmol/L Normal 11-10 [facility] Comment on above: Performed By: #### C DP, CP, LIP, TROPI, LIPRF, GLYHGB #### [employer] [address] [place] [address] [employer] Officer: Brandon Anaya MD Calcium [Mass/Vol] 9.2 mg/dL Normal 8.6-10.4 [facility] Comment on above: Performed By: #### C DP, CP, LIP, TROPI, LIPRF, GLYHGB #### [facility] [employer] [address] [place] [address] [employer]: Brandon Anaya MD Chloride [Moles/Vol] 96 mmol/L Low 98-107 [facility] Comment on above: Performed By: #### C DP, CP, LIP, TROPI, LIPRF, GLYHGB #### [address] [address] [employer]: Brandon Anaya MD CO2 [Moles/Vol] 24 mmol/L Normal 20-31 [facility] Comment on above: Performed By: #### C DP, CP, LIP, TROPI, LIPRF, GLYHGB #### [address] [address] [employer]: Brandon Anaya MD Creatinine [Mass/Vol] 0.55 mg/dL Normal 0.50-0.90 [facility] Comment on above: Performed By: #### C DP, CP, LIP, TROPI, LIPRF, GLYHGB #### [address] [address] [employer] Officer: Brandon Anaya MD GFR, Amer >60 Normal >60 [facility] Comment on above: Performed By: #### C DP, CP, LIP, TROPI, LIPRF, GLYHGB #### [facility] [employer] [address] [place] [address] [employer]: Brandon Anaya MD GFR,non Amer >60 Normal >60 [facility] Comment on above: Performed By: #### C DP, CP, LIP, TROPI, LIPRF, GLYHGB #### [facility] [employer] [address] [place] [address] [employer]: Brandon Anaya MD Glucose [Mass/Vol] 146 mg/dL High 70-99 [facility] Comment on above: Performed By: #### C DP, CP, LIP, TROPI, LIPRF, GLYHGB #### [address] [address] [employer]: Brandon Anaya MD Potassium [Moles/Vol] 3.6 mmol/L Low 3.7-5.3 [facility] Comment on above: Performed By: #### C DP, CP, LIP, TROPI, LIPRF, GLYHGB #### [address] [address] [employer]: Brandon Anaya MD Sodium [Moles/Vol] 135 mmol/L Normal 135-144 [facility] Comment on above: Performed By: #### C DP, CP, LIP, TROPI, LIPRF, GLYHGB #### [address] [address] [employer] Officer: Brandon Anaya MD Urea nitrogen [Mass/Vol] 13 mg/dL Normal 8- [facility] Comment on above: Performed By: #### C DP, CP, LIP, TROPI, LIPRF, GLYHGB #### [address] [address] [employer] Officer: Brandon Anaya MD BUN/CRE Ratio NOT REPORTED Normal 9- [facility] Comment on above: Performed By: #### C DP, CP, LIP, TROPI, LIPRF, GLYHGB #### [address] [address] [employer]: Brandon Anaya MD Staging: NOT REPORTED Normal [facility] Comment on above: Performed By: #### C DP, CP, LIP, TROPI, LIPRF, GLYHGB #### [address] [place] [address] [employer]: Brandon Anaya MD Basic Metabolic Panel w/ Ref kervin to MGon 10-11-2019 Anion gap [Moles/Vol] 15 mmol/L 9 - 17 mmol/L [place] Bun/Cre Ratio NOT REPORTED [place] Calcium [Mass/Vol] 9.2 mg/dL 8.6 - 10. 4 mg/dL [place] Chloride [Moles/Vol] 96 mmol/L Low 98 - 10 7 mmol/L [place] CO2 [Moles/Vol] 24 mmol/L 20 - 31 mmol/L [place] Creatinine [Mass/Vol] 0.55 mg/dL 0.5 - 0.9 mg/dL [place] GFR >60 >60 mL/min [place] GFR Non- >60 >60 mL/min [place] GFR/1.73 sq M predicted among non-blacks MDRD (S/P/Bld) [Vol rate/Area] NOT REPORTED [place] GFR/1.73 sq M predicted among non-blacks MDRD (S/P/Bld) [Vol rate/Area] [place] Comment on above: Average GFR for 70 o r more years old: 75 mL/min/1.73sq m Chronic Kidney Disease: <60 mL/min/1.73sq m Kidney failure: <15 mL/min/1.73sq m eGFR calculated using average adult body mass. Additional eGFR calculator available at: http://www.Pulmonx.NN LABS/multiple_crcl_2012.htm Glucose [Mass/Vol] 146 mg/dL High 70 - 99 mg/dL [place] Interpretation and review of laboratory results Abnormal [place] Potassium [Moles/Vol] 3.6 mmol/L Low 3.7 - 5.3 mmol/L [place] Sodium [Moles/Vol] 135 mmol/L 135 - 144 mmol/L [place] Urea nitrogen [Mass/Vol] 13 mg/dL 8 - 23 mg/dL [place] CBC auto differentialon 09-24 Basophils (Bld) [#/Vol] 0.03 10*3/uL [place] Basophils/100 WBC (Bld) 0 % 0 - 2 % [place] Differential Type NOT REPORTED [place] Eosinophils (Bld) [#/Vol] 10*3/uL [place] Eosinophils/100 WBC (Bld) 0 % Low 1 - 4 % [place] Erythrocyte distribution width (RBC) [Ratio] 14.3 % 11.8 - 14.4 % [place] Hematocrit (Bld) [Volume fraction] 43.6 % 36.3 - 47.1 % [place] Hemoglobin (Bld) [Mass/Vol] 13.7 g/dL 11.9 - 15.1 g/dL [place] Immature granulocytes (Bld) [#/Vol] 1 % High 0 [place] Immature granulocytes (Bld) [#/Vol] 0.07 10*3/uL [place] Interpretation and review of laboratory results Abnormal [place] Lymphocytes (Bld) [#/Vol] 0.92 10*3/uL Low [place] Lymphocytes/100 WBC (Bld) 14 % Low 24 - 43 % [place] MCH (RBC) [Entitic mass] 29.1 pg 25.2 - 33.5 pg [place] MCHC (RBC) [Mass/Vol] 31.4 g/dL 28.4 - 34.8 g/dL [place] MCV (RBC) [Entitic vol] 92.6 fL 82.6 - 102.9 fL [place] Monocytes (Bld) [#/Vol] 0.07 10*3/uL Low [place] Monocytes/100 WBC (Bld) 1 % Low 3 - 12 % [place] Platelet mean volume (Bld) [Entitic vol] 10.6 fL 8.1 - 13.5 fL [place] Platelets (Bld) [#/Vol] NOT REPORTED [place] Platelets (Bld) [#/Vol] 196 10*3/uL [place] RBC (Bld) [#/Vol] 4.71 10*6/uL 3.95 - 5.1 1 m/uL [place] RBC morphology finding Nom (Bld) NOT REPORTED [place] Segmented neutrophils/100 WBC (Bld) 84 % High 36 - 65 % [place] Segs Absolute 5.67 [place] WBC (Bld) [#/Vol] 0.0 10*3/uL 0.0 per 10 0 WBC [place] WBC (Bld) [#/Vol] 6.8 10*3/uL [place] WBC Morphology NOT REPORTED [place] CBC with Diffon 10-11-2019 Abs. Basophil 0.03 k/uL Normal 0.00-0.20 [facility] Comment on above: Performed By: #### C DP, CP, LIP, TROPI, LIPRF, GLYHGB #### [facility] [employer] [address] [place] [address] [employer]: Brandon Anaya MD Abs.Imm.Granulocyte 0.07 k/uL Normal 0.00-0.30 [facility] Comment on above: Performed By: #### C DP, CP, LIP, TROPI, LIPRF, GLYHGB #### [facility] [employer] [address] [place] [address] [employer]: Brandon Anaya MD Abs.Neutrophil (Seg) 5.67 k/uL Normal 1.50-8.10 [facility] Comment on above: Performed By: #### C DP, CP, LIP, TROPI, LIPRF, GLYHGB #### [facility] [employer] [address] [place] [address] [employer]: Brandon Anaya MD Basophils/100 WBC (Bld) 0 % Normal 0-2 [facility] Comment on above: Performed By: #### C DP, CP, LIP, TROPI, LIPRF, GLYHGB #### [address] [address] [employer] Officer: Brandon Anaya MD Eosinophils (Bld) [#/Vol] 10*3/uL Normal 0.00-0.44 [facility] Comment on above: Performed By: #### C DP, CP, LIP, TROPI, LIPRF, GLYHGB #### [address] [address] [employer] Officer: Brandon Anaya MD Eosinophils/100 WBC (Bld) 0 % Low 1-4 [facility] Comment on above: Performed By: #### C DP, CP, LIP, TROPI, LIPRF, GLYHGB #### [address] [address] [employer] Officer: Brandon Anaya MD Erythrocyte distribution width (RBC) [Ratio] 14.3 % Normal 11.8-14.4 [facility] Comment on above: Performed By: #### C DP, CP, LIP, TROPI, LIPRF, GLYHGB #### [address] [address] [employer] Senior Officer: Brandon Anaya MD Hematocrit (Bld) [Volume fraction] 43.6 % Normal 36.3-47.1 [facility] Comment on above: Performed By: #### C DP, CP, LIP, TROPI, LIPRF, GLYHGB #### [address] [address] [employer] Senior Officer: Brandon Anaya MD Hemoglobin (Bld) [Mass/Vol] 13.7 g/dL Normal 11.9-15.1 [facility] Comment on above: Performed By: #### C DP, CP, LIP, TROPI, LIPRF, GLYHGB #### [address] [address] [employer] Officer: Brandon Anaya MD Immature granulocytes (Bld) [#/Vol] 1 % High 0 [facility] Comment on above: Performed By: #### C DP, CP, LIP, TROPI, LIPRF, GLYHGB #### [place] [address] [employer] Officer: Brandon Anaya MD Lymphocytes (Bld) [#/Vol] 0.92 10*3/uL Low 1.10-3.70 [facility] Comment on above: Performed By: #### C DP, CP, LIP, TROPI, LIPRF, GLYHGB #### [place] [address] [employer]: Brandon Anaya MD Lymphocytes/100 WBC (Bld) 14 % Low 24-43 [facility] Comment on above: Performed By: #### C DP, CP, LIP, TROPI, LIPRF, GLYHGB #### [place] [address] [employer]: Brandon Anaya MD MCH (RBC) [Entitic mass] 29.1 pg Normal 25.2-33.5 [facility] Comment on above: Performed By: #### C DP, CP, LIP, TROPI, LIPRF, GLYHGB #### [place] [address] [employer]: Brandon Anaya MD MCHC (RBC) [Mass/Vol] 31.4 g/dL Normal 28.4-34.8 [facility] Comment on above: Performed By: #### C DP, CP, LIP, TROPI, LIPRF, GLYHGB #### [place] [address] [employer] Officer: Brandon Anaya MD MCV (RBC) [Entitic vol] 92.6 fL Normal 82.6-102.9 [facility] Comment on above: Performed By: #### C DP, CP, LIP, TROPI, LIPRF, GLYHGB #### [address] [address] [employer] Officer: Brandon Anaya MD Monocytes (Bld) [#/Vol] 0.07 10*3/uL Low 0.10-1.20 [facility] Comment on above: Performed By: #### C DP, CP, LIP, TROPI, LIPRF, GLYHGB #### [address] [address] [employer]: Brandon Anaya MD Monocytes/100 WBC (Bld) 1 % Low 3-12 [facility] Comment on above: Performed By: #### C DP, CP, LIP, TROPI, LIPRF, GLYHGB #### [place] [address] [employer] Officer: Brandon Anaya MD Neutrophil (Seg) 84 % High 36-65 [facility] Comment on above: Performed By: #### C DP, CP, LIP, TROPI, LIPRF, GLYHGB #### [place] [address] [employer] Officer: Brandon Anaya MD NRBC Automated 0.0 per 100 WBC Normal 0.0 [facility] Comment on above: Performed By: #### C DP, CP, LIP, TROPI, LIPRF, GLYHGB #### [address] [address] [employer] Officer: Brandon Anaya MD Platelet mean volume (Bld) [Entitic vol] 10.6 fL Normal 8.1-13.5 [facility] Comment on above: Performed By: #### C DP, CP, LIP, TROPI, LIPRF, GLYHGB #### [address] [address] [employer] Officer: Brandon Anaya MD Platelets (Bld) [#/Vol] 196 10*3/uL Normal 138-453 [facility] Comment on above: Performed By: #### C DP, CP, LIP, TROPI, LIPRF, GLYHGB #### [address] [address] [employer] Officer: Brandon Anaya MD RBC (Bld) [#/Vol] 4.71 10*6/uL Normal 3.95-5.11 [facility] Comment on above: Performed By: #### C DP, CP, LIP, TROPI, LIPRF, GLYHGB #### [address] [address] [employer] Officer: Brandon Anaya MD WBC (Bld) [#/Vol] 6.8 10*3/uL Normal 3.5-11.3 [facility] Comment on above: Performed By: #### C DP, CP, LIP, TROPI, LIPRF, GLYHGB #### [address] [address] [employer] Officer: Brandon Anaya MD Auto Diff Performed NOT REPORTED Normal [facility] Comment on above: Performed By: #### C DP, CP, LIP, TROPI, LIPRF, GLYHGB #### [address] [address] [employer] Officer: Brandon Anaya MD Platelets (Bld) [#/Vol] NOT REPORTED Normal [facility] Comment on above: Performed By: #### C DP, CP, LIP, TROPI, LIPRF, GLYHGB #### [address] [address] [employer] Officer: Brandon Anaya MD RBC morphology finding Nom (Bld) NOT REPORTED Normal [facility] Comment on above: Performed By: #### C DP, CP, LIP, TROPI, LIPRF, GLYHGB #### [address] [phone] [employer] Officer: Brandon Anaya MD WBC Morphology NOT REPORTED Normal [facility] Comment on above: Performed By: #### C DP, CP, LIP, TROPI, LIPRF, GLYHGB #### [facility] [address] [place] [address] [employer]: Brandon Anaya MD MRI BRAIN W WO [...] Chaitanya Sawyer MD 10/11/19 Final result Normal [facility] Prieto, Mhpn Incoming Radiant Results From [employer] - 10/11/2019 3:07 PM EDT EXAMINATION: MRI [...] Small meningioma over the right frontal lobe. [place] Volume loss with chr onic white matter microvascular ischemic change. Small meningioma over the right frontal lobe. [place] EXAMINATION: MRI OF THE BRAIN WITHOUT [...] The soft tissues demonstrate no acute abnormality. [place] POC Glucose Fingerstickon Glucose [Mass/Vol] 121 mg/dL High 65 - 105 mg/dL [place] Interpretation and review of laboratory results Abnormal [place] Glucose [Mass/Vol] 171 mg/dL High 65 - 105 mg/dL [place] Interpretation and review of laboratory results Abnormal [place] Glucose [Mass/Vol] 127 mg/dL High 65 - 105 mg/dL [place] Interpretation and review of laboratory results Abnormal [place] Glucose [Mass/Vol] 145 mg/dL High 65 - 105 mg/dL [place] Interpretation and review of laboratory results Abnormal [place] XR CHEST PORTABLEon 10-11-19 EXAMINATION: ONE XRA Y VIEW OF THE CHEST 10/11/2019 10:45 pm COMPARISON: 06/27/2017 HISTORY: ORDERING SYSTEM PROVIDED HISTORY: evaluate TECHNOLOGIST PROVIDED HISTORY: evaluate Reason for Exam: Upright portable Acuity: Unknown Type of Exam: Unknown FINDINGS: Cardiomediastinal silhouette is unchanged in size. Aortic atherosclerosis. No pulmonary consolidation, pleural effusion, or pneumothorax. No acute osseous abnormality. [place], [place] Incoming Radiant Results From [employer] [facility] - 10/11/2019 11:49 PM EDT EXAMINATION: ONE XRAY VIEW OF THE CHEST 10/11/2019 10:45 pm COMPARISON: 06/27/2017 HISTORY: ORDERING SYSTEM PROVIDED HISTORY: evaluate TECHNOLOGIST PROVIDED HISTORY: evaluate Reason for Exam: Upright portable Acuity: Unknown Type of Exam: Unknown FINDINGS: Cardiomediastinal silhouette is unchanged in size. Aortic atherosclerosis. No pulmonary consolidation, pleural effusion, or pneumothorax. No acute osseous abnormality. IMPRESSION: No acute cardiopulmonary abnormality. [place] No acute cardiopulmo nary abnormality. [place] Basic Metab w/rfx MGon 10-09 (cont.) Normal [facility] Comment on above: Result Comment: Aver age GFR for 70 or more years old: 75 mL/min/1.73sq m Chronic Kidney Disease: <60 mL/min/1.73sq m Kidney failure: <15 mL/min/1.73sq m eGFR calculated using average adult body mass. Additional eGFR calculator available at: http://www.[employer].NN LABS/multiple_crcl_2011.htm Performed By: #### C DP, CP, LIP, TROPI, LIPRF, GLYHGB #### [facility] [address] [place] [address] [employer]: Brandon Anaya MD Anion gap [Moles/Vol] 10 mmol/L Normal 9-17 [facility] Comment on above: Performed By: #### C DP, CP, LIP, TROPI, LIPRF, GLYHGB #### [facility] [address] [place] [address] [employer] Officer: Brandon Anaya MD Calcium [Mass/Vol] 9.0 mg/dL Normal 8.6-10.4 [facility] Comment on above: Performed By: #### C DP, CP, LIP, TROPI, LIPRF, GLYHGB #### [address] [address] [employer] Officer: Brandon Anaya MD Chloride [Moles/Vol] 97 mmol/L Low 98-107 [facility] Comment on above: Performed By: #### C DP, CP, LIP, TROPI, LIPRF, GLYHGB #### [address] [address] [employer] Officer: Brandon Anaya MD CO2 [Moles/Vol] 25 mmol/L Normal 20-31 [facility] Comment on above: Performed By: #### C DP, CP, LIP, TROPI, LIPRF, GLYHGB #### [address] [address] [employer] Officer: Brandon Anaya MD Creatinine [Mass/Vol] 0.50 mg/dL Normal 0.50-0.90 [facility] Comment on above: Performed By: #### C DP, CP, LIP, TROPI, LIPRF, GLYHGB #### [facility] [employer] [address] [place] [address] [employer] Officer: Brandon Anaya MD GFR, Amer >60 Normal >60 [facility] Comment on above: Performed By: #### C DP, CP, LIP, TROPI, LIPRF, GLYHGB #### [address] [address] [employer] Senior Officer: Brandon Anaya MD GFR,non Amer >60 Normal >60 [facility] Comment on above: Performed By: #### C DP, CP, LIP, TROPI, LIPRF, GLYHGB #### [address] [address] [employer] Officer: Brandon Anaya MD Glucose [Mass/Vol] 123 mg/dL High 70-99 [facility] Comment on above: Performed By: #### C DP, CP, LIP, TROPI, LIPRF, GLYHGB #### [address] [address] [employer] Officer: Brandon Anaya MD Potassium [Moles/Vol] 3.5 mmol/L Low 3.7-5.3 [facility] Comment on above: Performed By: #### C DP, CP, LIP, TROPI, LIPRF, GLYHGB #### [address] [address] [employer] Officer: Brandon Anaya MD Sodium [Moles/Vol] 132 mmol/L Low 135-144 [facility] Comment on above: Performed By: #### C DP, CP, LIP, TROPI, LIPRF, GLYHGB #### [address] [address] [employer] Senior Officer: Brandon Anaya MD Urea nitrogen [Mass/Vol] 14 mg/dL Normal 8-23 [facility] Comment on above: Performed By: #### C DP, CP, LIP, TROPI, LIPRF, GLYHGB #### [address] [address] [employer] Officer: Brandon Anaya MD BUN/CRE Ratio NOT REPORTED Normal 9-20 [facility] Comment on above: Performed By: #### C DP, CP, LIP, TROPI, LIPRF, GLYHGB #### [facility] [employer] [address] [place], [place] [phone] [employer] Officer: Brandon Anaya MD Staging: NOT REPORTED Normal [facility] Comment on above: Performed By: #### C DP, CP, LIP, TROPI, LIPRF, GLYHGB #### [facility] [address] [place], [place] [phone] [employer] Officer: Brandon Anaya MD Basic Metabolic Panel w/ Ref kervin to [facility] 10-10-2019 Anion gap [Moles/Vol] 10 mmol/L 9 - 17 mmol/L [place] Bun/Cre Ratio NOT REPORTED [place] Calcium [Mass/Vol] 9.0 mg/dL 8.6 - 10. 4 mg/dL [place] Chloride [Moles/Vol] 97 mmol/L Low 98 - 10 7 mmol/L [place] CO2 [Moles/Vol] 25 mmol/L 20 - 31 mmol/L [place] Creatinine [Mass/Vol] 0.5 mg/dL 0.5 - 0.9 mg/dL [place] GFR >60 >60 mL/min [place] GFR Non- >60 >60 mL/min [place] GFR/1.73 sq M predicted among non-blacks MDRD (S/P/Bld) [Vol rate/Area] [place] Comment on above: Average GFR for 70 o r more years old: 75 mL/min/1.73sq m Chronic Kidney Disease: <60 mL/min/1.73sq m Kidney failure: <15 mL/min/1.73sq m eGFR calculated using average adult body mass. Additional eGFR calculator available at: http://www.[employer].NN LABS/multiple_crcl_2012.htm GFR/1.73 sq M predicted among non-blacks MDRD (S/P/Bld) [Vol rate/Area] NOT REPORTED [place] Glucose [Mass/Vol] 123 mg/dL High 70 - 99 mg/dL [place] Interpretation and review of laboratory results Abnormal [place] Potassium [Moles/Vol] 3.5 mmol/L Low 3.7 - 5.3 mmol/L [place] Sodium [Moles/Vol] 132 mmol/L Low 135 - 144 mmol/L [place] Urea nitrogen [Mass/Vol] 14 mg/dL 8 - 23 mg/dL [place] C-REACTIVE PROTEINon 020 CRP [Mass/Vol] 6.3 mg/L High 0 - 5 mg/L [place] Interpretation and review of laboratory results Abnormal [place] C-Reactive Proteinon 020 CRP [Mass/Vol] 6.3 mg/L High 0.0-5.0 [facility] Comment on above: Performed By: #### C DP, CP, LIP, TROPI, LIPRF, GLYHGB #### [facility] [employer] [address] [place] [address] [employer]: Brandon Anaya MD CBC auto differentialon 09-24 Basophils (Bld) [#/Vol] 0.06 10*3/uL [place] Basophils/100 WBC (Bld) 1 % 0 - 2 % [place] Differential Type NOT REPORTED [place] Eosinophils (Bld) [#/Vol] 0.07 10*3/uL [place] Eosinophils/100 WBC (Bld) 1 % 1 - 4 % [place] Erythrocyte distribution width (RBC) [Ratio] 14.5 % High 11.8 - 14.4 % [place] Hematocrit (Bld) [Volume fraction] 42.7 % 36.3 - 47.1 % [place] Hemoglobin (Bld) [Mass/Vol] 13.5 g/dL 11.9 - 15.1 g/dL [place] Immature granulocytes (Bld) [#/Vol] 0.05 10*3/uL [place] Immature granulocytes (Bld) [#/Vol] 1 % High 0 [place] Interpretation and review of laboratory results Abnormal [place] Lymphocytes (Bld) [#/Vol] 1.05 10*3/uL [place] Lymphocytes/100 WBC (Bld) 14 % Low 24 - 43 % [place] MCH (RBC) [Entitic mass] 29.8 pg 25.2 - 33.5 pg [place] MCHC (RBC) [Mass/Vol] 31.6 g/dL 28.4 - 34.8 g/dL [place] MCV (RBC) [Entitic vol] 94.3 fL 82.6 - 102.9 fL [place] Monocytes (Bld) [#/Vol] 0.65 10*3/uL [place] Monocytes/100 WBC (Bld) 9 % 3 - 12 % [place] Platelet mean volume (Bld) [Entitic vol] 10.9 fL 8.1 - 13.5 fL [place] Platelets (Bld) [#/Vol] 170 10*3/uL [place] Platelets (Bld) [#/Vol] NOT REPORTED [place] RBC (Bld) [#/Vol] 4.53 10*6/uL 3.95 - 5.1 1 m/uL [place] RBC morphology finding Nom (Bld) ANISOCYTOSIS PRESENT [place] Segmented neutrophils/100 WBC (Bld) 74 % High 36 - 65 % [place] Segs Absolute 5.55 [place] WBC (Bld) [#/Vol] 0.0 10*3/uL 0.0 per 10 0 WBC [place] WBC (Bld) [#/Vol] 7.4 10*3/uL [place] WBC Morphology NOT REPORTED [place] CBC with Diffon 10-10-2019 Abs. Basophil 0.06 k/uL Normal 0.00-0.20 [facility] Comment on above: Performed By: #### C DP, CP, LIP, TROPI, LIPRF, GLYHGB #### [address] [address] [employer]: Brandon Anaya MD Abs.Imm.Granulocyte 0.05 k/uL Normal 0.00-0.30 [facility] Comment on above: Performed By: #### C DP, CP, LIP, TROPI, LIPRF, GLYHGB #### [address] [address] [employer]: Brandon Anaya MD Abs.Neutrophil (Seg) 5.55 k/uL Normal 1.50-8.10 [facility] Comment on above: Performed By: #### C DP, CP, LIP, TROPI, LIPRF, GLYHGB #### [place] [address] [employer]: Brandon Anaya MD Basophils/100 WBC (Bld) 1 % Normal 0-2 [facility] Comment on above: Performed By: #### C DP, CP, LIP, TROPI, LIPRF, GLYHGB #### [place] [address] [employer]: Brandon Anaya MD Eosinophils (Bld) [#/Vol] 0.07 10*3/uL Normal 0.00-0.44 [facility] Comment on above: Performed By: #### C DP, CP, LIP, TROPI, LIPRF, GLYHGB #### [address] [address] [employer]: Brandon Anaya MD Eosinophils/100 WBC (Bld) 1 % Normal 1-4 [facility] Comment on above: Performed By: #### C DP, CP, LIP, TROPI, LIPRF, GLYHGB #### [address] [address] [employer]: Brandon Anaya MD Erythrocyte distribution width (RBC) [Ratio] 14.5 % High 11.8-14.4 [facility] Comment on above: Performed By: #### C DP, CP, LIP, TROPI, LIPRF, GLYHGB #### [address] [address] [employer]: Brandon Anaya MD Hematocrit (Bld) [Volume fraction] 42.7 % Normal 36.3-47.1 [facility] Comment on above: Performed By: #### C DP, CP, LIP, TROPI, LIPRF, GLYHGB #### [address] [address] [employer]: Brandon Anaya MD Hemoglobin (Bld) [Mass/Vol] 13.5 g/dL Normal 11.9-15.1 [facility] Comment on above: Performed By: #### C DP, CP, LIP, TROPI, LIPRF, GLYHGB #### [address] [address] [employer]: Brandon Anaya MD Immature granulocytes (Bld) [#/Vol] 1 % High 0 [facility] Comment on above: Performed By: #### C DP, CP, LIP, TROPI, LIPRF, GLYHGB #### [address] [address] [employer]: Brandon Anaya MD Lymphocytes (Bld) [#/Vol] 1.05 10*3/uL Low 1.10-3.70 [facility] Comment on above: Performed By: #### C DP, CP, LIP, TROPI, LIPRF, GLYHGB #### [address] [address] [employer]: Brandon Anaya MD Lymphocytes/100 WBC (Bld) 14 % Low 24-43 [facility] Comment on above: Performed By: #### C DP, CP, LIP, TROPI, LIPRF, GLYHGB #### [address] [address] [employer]: Brandon Anaya MD MCH (RBC) [Entitic mass] 29.8 pg Normal 25.2-33.5 [facility] Comment on above: Performed By: #### C DP, CP, LIP, TROPI, LIPRF, GLYHGB #### [address] [address] [employer]: Brandon Anaya MD MCHC (RBC) [Mass/Vol] 31.6 g/dL Normal 28.4-34.8 [facility] Comment on above: Performed By: #### C DP, CP, LIP, TROPI, LIPRF, GLYHGB #### [place] [address] [employer]: Brandon Anaya MD MCV (RBC) [Entitic vol] 94.3 fL Normal 82.6-102.9 [facility] Comment on above: Performed By: #### C DP, CP, LIP, TROPI, LIPRF, GLYHGB #### [address] [address] [employer]: Brandon Anaya MD Monocytes (Bld) [#/Vol] 0.65 10*3/uL Normal 0.10-1.20 [facility] Comment on above: Performed By: #### C DP, CP, LIP, TROPI, LIPRF, GLYHGB #### [address] [address] [employer]: Brandon Anaya MD Monocytes/100 WBC (Bld) 9 % Normal 3-12 [facility] Comment on above: Performed By: #### C DP, CP, LIP, TROPI, LIPRF, GLYHGB #### [address] [address] [employer]: Brandon Anaya MD Neutrophil (Seg) 74 % High 36-65 [facility] Comment on above: Performed By: #### C DP, CP, LIP, TROPI, LIPRF, GLYHGB #### [address] [address] [employer]: Brandon Anaya MD NRBC Automated 0.0 per 100 WBC Normal 0.0 [facility] Comment on above: Performed By: #### C DP, CP, LIP, TROPI, LIPRF, GLYHGB #### [address] [address] [employer]: Brandon Anaya MD Platelet mean volume (Bld) [Entitic vol] 10.9 fL Normal 8.1-13.5 [facility] Comment on above: Performed By: #### C DP, CP, LIP, TROPI, LIPRF, GLYHGB #### [address] [address] [employer]: Brandon Anaya MD Platelets (Bld) [#/Vol] 170 10*3/uL Normal 138-453 [facility] Comment on above: Performed By: #### C DP, CP, LIP, TROPI, LIPRF, GLYHGB #### [address] [address] [employer]: Brandon Anaya MD RBC (Bld) [#/Vol] 4.53 10*6/uL Normal 3.95-5.11 [facility] Comment on above: Performed By: #### C DP, CP, LIP, TROPI, LIPRF, GLYHGB #### [address] [address] [employer]: Brandon Anaya MD RBC morphology finding Nom (Bld) ANISOCYTOSIS PRESENT Normal [facility] Comment on above: Performed By: #### C DP, CP, LIP, TROPI, LIPRF, GLYHGB #### [address] [address] [employer]: Brandon Anaya MD WBC (Bld) [#/Vol] 7.4 10*3/uL Normal 3.5-11.3 [facility] Comment on above: Performed By: #### C DP, CP, LIP, TROPI, LIPRF, GLYHGB #### [address] [address] [employer]: Brandon Anaya MD Auto Diff Performed NOT REPORTED Normal [facility] Comment on above: Performed By: #### C DP, CP, LIP, TROPI, LIPRF, GLYHGB #### [address] [address] [employer]: Brandon Anaya MD Platelets (Bld) [#/Vol] NOT REPORTED Normal [facility] Comment on above: Performed By: #### C DP, CP, LIP, TROPI, LIPRF, GLYHGB #### [address] [address] [employer]: Brandon Anaya MD WBC Morphology NOT REPORTED Normal [facility] Comment on above: Performed By: #### C DP, CP, LIP, TROPI, LIPRF, GLYHGB #### [address] [address] [employer] Officer: Brandon Anaya MD CT HEAD WO CONTRASTon [...] Naga Browning MD 10/10/19 Final result Normal [facility] 1. No acute intracra nial abnormality. 2. Mild chronic white matter microvascular ischemic changes. [place] EXAMINATION: CT OF T HE HEAD [...] of the visualized skull or soft tissues. [place] Pri[place], [place]hpn Incoming Radiant Results From [facility] - 10/10/2019 5:31 PM EDT EXAMINATION: CT [...] Mild chronic white matter microvascular ischemic changes. [place] CTA HEAD NECK W CONTRASTon 0 [...] Initial FINDINGS: CTA NECK: AORTIC ARCH/ARCH VESSELS: [id number] atherosclerotic plaque at the arch arch and [...] Naga Browning MD 10/10/19 Final result Normal [facility] EXAMINATION: CTA OF THE HEAD [...] Initial FINDINGS: CTA NECK: AORTIC ARCH/ARCH VESSELS: [id number]-[id number] atherosclerotic plaque at the arch arch and [...] fluid collection. The salmeron-white differentiation is maintained. [place] 1. No acute arterial abnormality or hemodynamically significant arterial stenosis in the head or neck. 2. No intracranial aneurysm. [place] Pri[place], [place]hpn Incoming Radiant Results From [facility] - 10/10/2019 5:36 PM EDT EXAMINATION: CTA [...] Initial FINDINGS: CTA NECK: AORTIC ARCH/ARCH VESSELS: [id number] atherosclerotic plaque at the arch arch and [...] head or neck. 2. No intracranial aneurysm. [place] Hemoglobin A1Con 10-10-2019 HbA1c (Bld) [Mass fraction] 111 mg/dL Normal [facility] Comment on above: Result Comment: The ADA and AACC recommend providing the estimated average glucose result to permit better patient understanding of their HBA1c result. Performed By: #### C DP, CP, LIP, TROPI, LIPRF, GLYHGB #### [employer] [address] [place] [phone] [employer]: Brandon Anaya MD HbA1c (Bld) [Mass fraction] 5.5 % Normal 4.0-6.0 [facility] Comment on above: Performed By: #### C DP, CP, LIP, TROPI, LIPRF, GLYHGB #### [employer] [address] [place] [address] [employer]: Brandon Anaya MD Glucose [Mass/Vol] 111 mg/dL [place] Comment on above: The ADA and AACC rec ommend providing the estimated average glucose result to permit better patient understanding of their HBA1c result. HbA1c (Bld) [Mass fraction] 5.5 % 4 - 6 % [place] LACTIC ACID, WHOLE BLOODon 0 10-10-2019 Lactic Acid, Whole Blood 1.0 mmol/L 0.7 - 2.1 mmol/L [place] Lactic Acid,Whole Blon 10-09 Lactic Acid,Whole Bl 1.0 mmol/L Normal 0.7-2.1 [facility] Comment on above: Performed By: #### C DP, CP, LIP, TROPI, LIPRF, GLYHGB #### [employer] [address] [place] [address], [place] [address] [employer]: Brandon Anaya MD Magnesiumon 10-10-2019 Magnesium [Mass/Vol] 2.1 mg/dL Normal 1.6-2.6 [facility] Comment on above: Performed By: #### C DP, CP, LIP, TROPI, LIPRF, GLYHGB #### [facility] [employer] [address] [place] [address] [employer]: Brandon Anaya MD Magnesium [Mass/Vol] 2.1 mg/dL 1.6 - 2 .6 mg/dL [facility] [place] Other[facility] 10-10-2019 1. Subtle sclerosis subjacent to the L2 and L3 superior endplates is age-indeterminate and could represent trabecular condensation associated with acute or subacute endplate fractures. MRI of the lumbar spine is recommended for further evaluation. 2. No acute osseous abnormality of the sacrum or coccyx. 3. Osteopenia. [facility] [employer] [place] Prieto, Mhpn Incoming Radiant Results From [employer] - 10/10/2019 8:19 PM EDT EXAMINATION: THREE [...] of the sacrum or coccyx. 3. Osteopenia. [place] EXAMINATION: THREE X RAY VIEWS OF [...] the urinary bladder. Atherosclerotic calcifications are present. [place] POC Glucose Fingerstickon Glucose [Mass/Vol] 159 mg/dL High 65 - 105 mg/dL [place] Interpretation and review of laboratory results Abnormal [place] Glucose [Mass/Vol] 186 mg/dL High 65 - 105 mg/dL [place] Interpretation and review of laboratory results Abnormal [place] Glucose [Mass/Vol] 135 mg/dL High 65 - 105 mg/dL [place] Interpretation and review of laboratory results Abnormal [place] Procalcitoninon 10-10-2019 Procalcitonin 0.15 ng/mL High <0.09 [facility] Comment on above: Result Comment: [...] entered into the Change in Procalcitonin Calculator (www.mlyivl-bji-qdlvkfiici.NN LABS) to determine the patient's Mortality Risk Prognosis In healthy neonates, plasma Procalcitonin (PCT) concentrations increase gradually after , reaching peak values at about 24 hours of age then decrease to normal values below 0.5 ng/mL by 48-72 hours of age. Performed By: #### C DP, CP, LIP, TROPI, LIPRF, GLYHGB #### [facility] [employer] [address] [place], [place] [phone] [employer]: Brandon Anaya MD Interpretation and review of laboratory results Abnormal [place] Procalcitonin 0.15 ng/mL High <0.09 [place] Comment on above: Suspected Sepsis: <0.50 [...] entered into the Change in Procalcitonin Calculator (www.hgvnhj-dyg-uvzicavlth.NN LABS) to determine the patient's Mortality Risk Prognosis In healthy neonates, plasma Procalcitonin (PCT) concentrations increase gradually after , reaching peak values at about 24 hours of age then decrease to normal values below 0.5 ng/mL by 48-72 hours of age. Sedimentation Rateon 020 Sedimentation Rate 8 mm Normal 0-30 [facility] Comment on above: Performed By: #### C DP, CP, LIP, TROPI, LIPRF, GLYHGB #### [employer] [address] [place], [place] [phone] [employer]: Brandon Anaya MD Sed Rate 8 mm 0 - 30 mm [place] TSH w/reflex to FT4on 2019 TSH Qn 1.05 m[IU]/L Normal 0.30-5.00 [facility] Comment on above: Performed By: #### C DP, CP, LIP, TROPI, LIPRF, GLYHGB #### [facility] [place] [address] [employer]: Brandon Anaya MD TSH with Reflexon 10-10-2019 TSH Qn 1.05 m[IU]/L [place] XR LUMBAR SPINE (2-3 VIEWS)o n [...] Naga Browning MD 10/10/19 Final result Normal [facility] XR SACRUM COCCYX (MIN 2 [...] Naga Browning MD 10/10/19 Final result Normal [facility] Beta Hydroxybutyrateon 10-08 Beta Hydroxybutyrate 0.09 mmol/L Normal 0.02-0.27 [facility] Comment on above: Performed By: #### T OSMAR #### [facility] [employer] [address] [place] [address] [employer]: Brandon Anaya MD Beta-Hydroxybutyrateon 10-08 Beta-Hydroxybutyrate 0.09 mmol/L 0.02 - 0.27 mmol/L [place] CBC WITH AUTO DIFFERENTIALon 10-09-2019 Basophils (Bld) [#/Vol] 0.03 10*3/uL [place] Basophils/100 WBC (Bld) 0 % 0 - 2 % [place] Differential Type NOT REPORTED [place] Eosinophils (Bld) [#/Vol] 10*3/uL [place] Eosinophils/100 WBC (Bld) 0 % Low 1 - 4 % [place] Erythrocyte distribution width (RBC) [Ratio] 14.2 % 11.8 - 14.4 % [place] Hematocrit (Bld) [Volume fraction] 44.6 % 36.3 - 47.1 % [place] Hemoglobin (Bld) [Mass/Vol] 14.2 g/dL 11.9 - 15.1 g/dL [place] Immature granulocytes (Bld) [#/Vol] 1 % High 0 [place] Immature granulocytes (Bld) [#/Vol] 0.06 10*3/uL [place] Interpretation and review of laboratory results Abnormal [place] Lymphocytes (Bld) [#/Vol] 0.97 10*3/uL [place] Lymphocytes/100 WBC (Bld) 13 % Low 24 - 43 % [place] MCH (RBC) [Entitic mass] 29.7 pg 25.2 - 33.5 pg [place] MCHC (RBC) [Mass/Vol] 31.8 g/dL 28.4 - 34.8 g/dL [place] MCV (RBC) [Entitic vol] 93.3 fL 82.6 - 102.9 fL [place] Monocytes (Bld) [#/Vol] 0.52 10*3/uL [place] Monocytes/100 WBC (Bld) 7 % 3 - 12 % [place] Platelet mean volume (Bld) [Entitic vol] 10.9 fL 8.1 - 13.5 fL [place] Platelets (Bld) [#/Vol] NOT REPORTED [place] Platelets (Bld) [#/Vol] 202 10*3/uL [place] RBC (Bld) [#/Vol] 4.78 10*6/uL 3.95 - 5.1 1 m/uL [place] RBC morphology finding Nom (Bld) NOT REPORTED [place] Segmented neutrophils/100 WBC (Bld) 79 % High 36 - 65 % [place] Segs Absolute 6.10 [place] WBC (Bld) [#/Vol] 0.0 10*3/uL 0.0 per 10 0 WBC [place] WBC (Bld) [#/Vol] 7.7 10*3/uL [place] WBC Morphology NOT REPORTED [place] CBC with Diffon 10-09-2019 Abs. Basophil 0.03 k/uL Normal 0.00-0.20 [facility] Comment on above: Performed By: #### C DP, CP, LIP, TROPI, LIPRF, GLYHGB #### [facility] [employer] [address] [place] [address] [employer]: Brandon Anaya MD Abs.Imm.Granulocyte 0.06 k/uL Normal 0.00-0.30 [facility] Comment on above: Performed By: #### C DP, CP, LIP, TROPI, LIPRF, GLYHGB #### [address] [address] [employer]: Brandon Anaya MD Abs.Neutrophil (Seg) 6.10 k/uL Normal 1.50-8.10 [facility] Comment on above: Performed By: #### C DP, CP, LIP, TROPI, LIPRF, GLYHGB #### [facility] [employer] [address] [place] [address] [employer]: Brandon Anaya MD Basophils/100 WBC (Bld) 0 % Normal 0-2 [facility] Comment on above: Performed By: #### C DP, CP, LIP, TROPI, LIPRF, GLYHGB #### [facility] [employer] [address] [place] [address] [employer]: Brandon Anaya MD Eosinophils (Bld) [#/Vol] 10*3/uL Normal 0.00-0.44 [facility] Comment on above: Performed By: #### C DP, CP, LIP, TROPI, LIPRF, GLYHGB #### [facility] [employer] [address] [place] [address] [employer]: Brandon Anaya MD Eosinophils/100 WBC (Bld) 0 % Low 1-4 [facility] Comment on above: Performed By: #### C DP, CP, LIP, TROPI, LIPRF, GLYHGB #### [address] [address] [employer]: Brandon Anaay MD Erythrocyte distribution width (RBC) [Ratio] 14.2 % Normal 11.8-14.4 [facility] Comment on above: Performed By: #### C DP, CP, LIP, TROPI, LIPRF, GLYHGB #### [place] [address] [employer]: Brandon Anaya MD Hematocrit (Bld) [Volume fraction] 44.6 % Normal 36.3-47.1 [facility] Comment on above: Performed By: #### C DP, CP, LIP, TROPI, LIPRF, GLYHGB #### [address] [address] [employer]: Brandon Anaya MD Hemoglobin (Bld) [Mass/Vol] 14.2 g/dL Normal 11.9-15.1 [facility] Comment on above: Performed By: #### C DP, CP, LIP, TROPI, LIPRF, GLYHGB #### [place] [address] [employer]: Brandon Anaya MD Immature granulocytes (Bld) [#/Vol] 1 % High 0 [facility] Comment on above: Performed By: #### C DP, CP, LIP, TROPI, LIPRF, GLYHGB #### [address] [address] [employer]: Brandon Anaya MD Lymphocytes (Bld) [#/Vol] 0.97 10*3/uL Low 1.10-3.70 [facility] Comment on above: Performed By: #### C DP, CP, LIP, TROPI, LIPRF, GLYHGB #### [address] [address] [employer]: Brandon Anaya MD Lymphocytes/100 WBC (Bld) 13 % Low 24-43 [facility] Comment on above: Performed By: #### C DP, CP, LIP, TROPI, LIPRF, GLYHGB #### [place] [address] [employer]: Brandon Anaya MD MCH (RBC) [Entitic mass] 29.7 pg Normal 25.2-33.5 [facility] Comment on above: Performed By: #### C DP, CP, LIP, TROPI, LIPRF, GLYHGB #### [place] [address] [employer]: Brandon Anaya MD MCHC (RBC) [Mass/Vol] 31.8 g/dL Normal 28.4-34.8 [facility] Comment on above: Performed By: #### C DP, CP, LIP, TROPI, LIPRF, GLYHGB #### [place] [address] [employer]: Brandon Anaya MD MCV (RBC) [Entitic vol] 93.3 fL Normal 82.6-102.9 [facility] Comment on above: Performed By: #### C DP, CP, LIP, TROPI, LIPRF, GLYHGB #### [place] [address] [employer]: Brandon Anaya MD Monocytes (Bld) [#/Vol] 0.52 10*3/uL Normal 0.10-1.20 [facility] Comment on above: Performed By: #### C DP, CP, LIP, TROPI, LIPRF, GLYHGB #### [facility] [employer] [address] [place] [address] [employer]: Brandon Anaya MD Monocytes/100 WBC (Bld) 7 % Normal 3-12 [facility] Comment on above: Performed By: #### C DP, CP, LIP, TROPI, LIPRF, GLYHGB #### [address] [address] [employer]: Brandon Anaya MD Neutrophil (Seg) 79 % High 36-65 [facility] Comment on above: Performed By: #### C DP, CP, LIP, TROPI, LIPRF, GLYHGB #### [address] [address] [employer]: Brandon Anaya MD NRBC Automated 0.0 per 100 WBC Normal 0.0 [facility] Comment on above: Performed By: #### C DP, CP, LIP, TROPI, LIPRF, GLYHGB #### [address] [address] [employer]: Brandon Anaya MD Platelet mean volume (Bld) [Entitic vol] 10.9 fL Normal 8.1-13.5 [facility] Comment on above: Performed By: #### C DP, CP, LIP, TROPI, LIPRF, GLYHGB #### [address] [address] [employer]: Brandon Anaya MD Platelets (Bld) [#/Vol] 202 10*3/uL Normal 138-453 [facility] Comment on above: Performed By: #### C DP, CP, LIP, TROPI, LIPRF, GLYHGB #### [address] [address] [employer]: Brandon Anaya MD RBC (Bld) [#/Vol] 4.78 10*6/uL Normal 3.95-5.11 [facility] Comment on above: Performed By: #### C DP, CP, LIP, TROPI, LIPRF, GLYHGB #### [address] [address] [employer]: Brandon Anaya MD WBC (Bld) [#/Vol] 7.7 10*3/uL Normal 3.5-11.3 [facility] Comment on above: Performed By: #### C DP, CP, LIP, TROPI, LIPRF, GLYHGB #### [address] [address] [employer]: Brandon Anaya MD Auto Diff Performed NOT REPORTED Normal [facility] Comment on above: Performed By: #### C DP, CP, LIP, TROPI, LIPRF, GLYHGB #### [address] [address] [employer]: Brandon Anaya MD Platelets (Bld) [#/Vol] NOT REPORTED Normal [facility] Comment on above: Performed By: #### C DP, CP, LIP, TROPI, LIPRF, GLYHGB #### [address] [address] [employer]: Brandon Anaya MD RBC morphology finding Nom (Bld) NOT REPORTED Normal [facility] Comment on above: Performed By: #### C DP, CP, LIP, TROPI, LIPRF, GLYHGB #### [address] [address] [employer]: Brandon Anaya MD WBC Morphology NOT REPORTED Normal [facility] Comment on above: Performed By: #### C DP, CP, LIP, TROPI, LIPRF, GLYHGB #### [address] [address] [employer]: Brandon Anaya MD COVID-19, PCRon 10-09-2019 SARS-CoV-2 [place] SARS-CoV-2, PCR [place] SARS-CoV-2, Rapid Not Detected Not Detected [place], [place] Comment on above: Rapid NAAT: The [...] management decisions. Fact sheet for Healthcare Providers: https://www.fda.gov/media/134166/download Fact sheet for Patients: https://www.fda.gov/media/401150/download Methodology: Isothermal Nucleic Acid Amplification Source .NASOPHARYNGEAL SWAB [place], [place] CT CHEST PULMONARY EMBOLISM W CONTRASTon [...] No acute pulmonary process. Emphysema. Interpreted by: Forrest Darby MD Signed by: Forrest Darby MD 10/09/19 Final result Normal [facility] No central or segmen rhett pulmonary embolus. No acute pulmonary process. Emphysema. [facility] [place] EXAMINATION: CTA OF THE CHEST 10/09/2019 5:52 [...] focal consolidation. Bones: Thoracic spine degenerative changes. [place] Pri[place], [place]hpn Incoming Radiant Results From [facility] - 10/09/2019 8:31 AM EDT EXAMINATION: CTA [...] pulmonary embolus. No acute pulmonary process. Emphysema. [place] Comp Metabolic Profon 2019 (cont.) Normal [facility] Comment on above: Result Comment: Aver age GFR for 70 or more years old: 75 mL/min/1.73sq m Chronic Kidney Disease: <60 mL/min/1.73sq m Kidney failure: <15 mL/min/1.73sq m eGFR calculated using average adult body mass. Additional eGFR calculator available at: http://www.[employer]/multiple_crcl_2011.htm Performed By: #### C DP, CP, LIP, TROPI, LIPRF, GLYHGB #### [employer] [facility] [place] [address] [employer]: Brandon Anaya MD Albumin [Mass/Vol] 4.1 g/dL Normal 3.5-5.2 [facility] Comment on above: Performed By: #### C DP, CP, LIP, TROPI, LIPRF, GLYHGB #### [facility] [employer] [address] [place] [address] [employer]: Brandon Anaya MD Albumin/Globulin [Mass ratio] 1.6 {ratio} Normal 1.0-2.5 [facility] Comment on above: Performed By: #### C DP, CP, LIP, TROPI, LIPRF, GLYHGB #### [facility] [address] [place] [address] [employer]: Brandon Anaya MD Alkaline Phos 90 U/L Normal 35-104 [facility] [facility] Comment on above: Performed By: #### C DP, CP, LIP, TROPI, LIPRF, GLYHGB #### [facility] [employer] [address] [place] [address] [employer]: Brandon Anaya MD ALT [Catalytic activity/Vol] 15 U/L Normal 5-33 [facility] Comment on above: Performed By: #### C DP, CP, LIP, TROPI, LIPRF, GLYHGB #### [facility] [address] [place] [address] [employer]: Brandon Anaya MD Anion gap [Moles/Vol] 18 mmol/L High 9-17 [facility] Comment on above: Performed By: #### C DP, CP, LIP, TROPI, LIPRF, GLYHGB #### [address] [address] [employer]: Brandon Anaya MD AST [Catalytic activity/Vol] 11 U/L Normal <32 [facility] Comment on above: Performed By: #### C DP, CP, LIP, TROPI, LIPRF, GLYHGB #### [address] [address] [employer]: Brandon Anaya MD Bilirubin Ql (U) 0.39 mg/dL Normal 0.3-1.2 [facility] Comment on above: Performed By: #### C DP, CP, LIP, TROPI, LIPRF, GLYHGB #### [address] [address] [employer]: Brandon Anaya MD Calcium [Mass/Vol] 9.5 mg/dL Normal 8.6-10.4 [facility] Comment on above: Performed By: #### C DP, CP, LIP, TROPI, LIPRF, GLYHGB #### [address] [address] [employer]: Brandon Anaya MD Chloride [Moles/Vol] 99 mmol/L Normal 98-107 [facility] Comment on above: Performed By: #### C DP, CP, LIP, TROPI, LIPRF, GLYHGB #### [address] [address] [employer] Officer: Brandon Anaya MD CO2 [Moles/Vol] 24 mmol/L Normal 20-31 [facility] Comment on above: Performed By: #### C DP, CP, LIP, TROPI, LIPRF, GLYHGB #### [address] [address] [employer]: Brandon Anaya MD Creatinine [Mass/Vol] 0.63 mg/dL Normal 0.50-0.90 [facility] Comment on above: Performed By: #### C DP, CP, LIP, TROPI, LIPRF, GLYHGB #### [facility] [address] [place] [address] [employer]: Brandon Anaya MD GFR, Amer >60 Normal >60 [facility] Comment on above: Performed By: #### C DP, CP, LIP, TROPI, LIPRF, GLYHGB #### [address] [address] [employer] Officer: Brandon Anaya MD GFR,non Amer >60 Normal >60 [facility] Comment on above: Performed By: #### C DP, CP, LIP, TROPI, LIPRF, GLYHGB #### [address] [address] [employer] Officer: Brandon Anaya MD Glucose [Mass/Vol] 208 mg/dL High 70-99 [facility] Comment on above: Performed By: #### C DP, CP, LIP, TROPI, LIPRF, GLYHGB #### [address] [address] [employer]: Brandon Anaya MD Potassium [Moles/Vol] 3.9 mmol/L Normal 3.7-5.3 [facility] Comment on above: Performed By: #### C DP, CP, LIP, TROPI, LIPRF, GLYHGB #### [address] [address] [employer]: Brandon Anyaa MD Protein [Mass/Vol] 6.6 g/dL Normal 6.4-8.3 [facility] Comment on above: Performed By: #### C DP, CP, LIP, TROPI, LIPRF, GLYHGB #### [facility] [employer] [address] [place] [address] [employer]: Brandon Anaya MD Sodium [Moles/Vol] 141 mmol/L Normal 135-144 [facility] Comment on above: Performed By: #### C DP, CP, LIP, TROPI, LIPRF, GLYHGB #### [facility] [employer] [address] [place] [phone] [employer]: Brandon Anaya MD Urea nitrogen [Mass/Vol] 17 mg/dL Normal 8-23 [facility] Comment on above: Performed By: #### C DP, CP, LIP, TROPI, LIPRF, GLYHGB #### [address] [address] [employer] Officer: Brandon Anaya MD BUN/CRE Ratio NOT REPORTED Normal 9-20 [facility] Comment on above: Performed By: #### C DP, CP, LIP, TROPI, LIPRF, GLYHGB #### [facility] [employer] [address] [place] [phone] [employer] Officer: Brandon Anaya MD Staging: NOT REPORTED Normal [facility] Comment on above: Performed By: #### C DP, CP, LIP, TROPI, LIPRF, GLYHGB #### [facility] [employer] [address] [place] [phone] [employer] Officer: Brandon Anaya MD Comprehensive Metabolic Pane [facility] 10-09-2019 Albumin [Mass/Vol] 4.1 g/dL 3.5 - 5.2 g/dL [place] Albumin/Globulin [Mass ratio] 1.6 {ratio} [place] ALP [Catalytic activity/Vol] 90 U/L 35 - 104 U/L [place] ALT [Catalytic activity/Vol] 15 U/L 5 - 33 U/L [place] Anion gap [Moles/Vol] 18 mmol/L High 9 - 17 mmol/L [place] AST [Catalytic activity/Vol] 11 U/L <32 [place] Bilirubin Ql (U) 0.39 mg/dL 0.3 - 1.2 mg/dL [place] Bun/Cre Ratio NOT REPORTED [place] Calcium [Mass/Vol] 9.5 mg/dL 8.6 - 10. 4 mg/dL [place] Chloride [Moles/Vol] 99 mmol/L 98 - 10 7 mmol/L [place] CO2 [Moles/Vol] 24 mmol/L 20 - 31 mmol/L [place] Creatinine [Mass/Vol] 0.63 mg/dL 0.5 - 0.9 mg/dL [place] GFR >60 >60 mL/min [place] GFR Non- >60 >60 mL/min [place] GFR/1.73 sq M predicted among non-blacks MDRD (S/P/Bld) [Vol rate/Area] [place] Comment on above: Average GFR for 70 o r more years old: 75 mL/min/1.73sq m Chronic Kidney Disease: <60 mL/min/1.73sq m Kidney failure: <15 mL/min/1.73sq m eGFR calculated using average adult body mass. Additional eGFR calculator available at: http://www.[employer]NN LABS/multiple_crcl_2011.htm GFR/1.73 sq M predicted among non-blacks MDRD (S/P/Bld) [Vol rate/Area] NOT REPORTED [place] Glucose [Mass/Vol] 208 mg/dL High 70 - 99 mg/dL [place] Interpretation and review of laboratory results Abnormal [place] Potassium [Moles/Vol] 3.9 mmol/L 3.7 - 5.3 mmol/L [place] Protein [Mass/Vol] 6.6 g/dL 6.4 - 8.3 g/dL [place] Sodium [Moles/Vol] 141 mmol/L 135 - 144 mmol/L [place] Urea nitrogen [Mass/Vol] 17 mg/dL 8 - 23 mg/dL [place] EKG 12 [place] 10-09-2019 Atrial Rate 70 BPM [place] P [place] 54 degrees [place] P-R Interval 136 ms [place] Q-T Interval 432 ms [place] QRS Duration 80 ms [place] QTc Calculation (Bazett) 466 ms [place] R [place] -9 degrees [place] T [place] 3 degrees [place] Ventricular Rate 70 BPM [place] Prieto, [place]hpn Incoming E kg Results From [employer] [facility] - 10/09/2019 3:25 PM EDT Normal sinus rhythm Possible Left atrial enlargement Nonspecific ST abnormality Abnormal ECG No previous ECGs available [place] Normal sinus rhythm Possible Left atrial enlargement Nonspecific ST abnormality Abnormal ECG No previous ECGs available [place] LIPASEon 10-09-2019 Lipase [Catalytic activity/Vol] 48 U/L 13 - 60 U/L [place] Lipaseon 10-09-2019 Lipase [Catalytic activity/Vol] 48 U/L Normal 13-60 [facility] Comment on above: Performed By: #### C DP, CP, LIP, TROPI, LIPRF, GLYHGB #### [facility] [employer] [address] [place] [phone] [employer] Officer: Brandon Anaya MD Lipid Prof, Fastingon 2019 Cholesterol [Mass/Vol] 229 mg/dL High <200 [facility] Comment on above: Result Comment: Cholesterol Guidelines: <200 Desirable 200-240 Borderline >240 Undesirable Performed By: #### C DP, CP, LIP, TROPI, LIPRF, GLYHGB #### [facility] [employer] [address] [place] [phone] [employer] Officer: Brandon Anaya MD Cholesterol in HDL [Mass/Vol] 50 mg/dL Normal >40 [facility] Comment on above: Result Comment: HDL Guidelines: <40 Undesirable 40-59 Borderline >59 Desirable Performed By: #### C DP, CP, LIP, TROPI, LIPRF, GLYHGB #### [facility] [employer] [address] [place] [address] [employer] Officer: Brandon Anaya MD Cholesterol in LDL [Mass/Vol] 143 mg/dL High 0-130 [facility] Comment on above: Result Comment: LDL Guidelines: <100 Desirable 100-129 Near to/above Desirable 130-159 Borderline >159 Undesirable Direct (measured) LDL and calculated LDL are not interchangeable tests. Performed By: #### C DP, CP, LIP, TROPI, LIPRF, GLYHGB #### [facility] [employer] [address] [place] [address] [employer] Officer: Brandon Anaya MD Cholesterol.total/Chol esterol in HDL [Mass ratio] 4.6 {ratio} Normal <5 [facility] Comment on above: Performed By: #### C DP, CP, LIP, TROPI, LIPRF, GLYHGB #### [facility] [address] [place] [address] [employer] Officer: Brandon Anaya MD Triglyceride,Fasting 182 mg/dL High <150 [facility] Comment on above: Result Comment: Triglyceride Guidelines: <150 Desirable 150-199 Borderline 200-499 High >499 Very high Based on AHA Guidelines for fasting triglyceride, November 2011. Performed By: #### C DP, CP, LIP, TROPI, LIPRF, GLYHGB #### [facility] [employer] [address] [place] [address] [employer] Senior Officer: Brandon Anaya MD Cholesterol in VLDL [Mass/Vol] NOT REPORTED Normal 1-30 [facility] Comment on above: Performed By: #### C DP, CP, LIP, TROPI, LIPRF, GLYHGB #### [facility] [employer] [address] [place] [address] [employer] Officer: Brandon Anaya MD Lipid, Fastingon 10-09-2019 Cholesterol [Mass/Vol] 229 mg/dL High <200 [place] Comment on above: Cholesterol Guidelines: <200 Desirable 200-240 Borderline >240 Undesirable Cholesterol in HDL [Mass/Vol] 50 mg/dL >40 [place] Comment on above: HDL Guidelines: <40 Undesirable 40-59 Borderline >59 Desirable Cholesterol in LDL [Mass/Vol] 143 mg/dL High 0 - 130 mg/dL [place] Comment on above: LDL Guidelines: <100 Desirable 100-129 Near to/above Desirable 130-159 Borderline >159 Undesirable Direct (measured) LDL and calculated LDL are not interchangeable tests. Cholesterol in VLDL [Mass/Vol] NOT REPORTED High 1 - 30 mg/dL [place] Cholesterol.total/Chol esterol in HDL [Mass ratio] 4.6 {ratio} <5 [place] Interpretation and review of laboratory results Abnormal [place] Triglyceride, Fasting 182 mg/dL High <150 [place] Comment on above: Triglyceride Guidelines: <150 Desirable 150-199 Borderline 200-499 High >499 Very high Based on AHA Guidelines for fasting triglyceride, November 2011. POC Glucose Fingerstickon Glucose [Mass/Vol] 126 mg/dL High 65 - 105 mg/dL [place] Interpretation and review of laboratory results Abnormal [place] [id number] 10-09-2019 SARS-CoV-2 Normal [facility] Comment on above: Performed By: #### C OVID #### [address] [place] [address] [employer]: Brandon Anaya MD SARS-CoV-2,Rapid Not Detected Normal NOTDET [facility] Comment on above: Result Comment: [...] management decisions. Fact sheet for Healthcare Providers: https://www.fda.gov/media/029411/download Fact sheet for Patients: https://www.fda.gov/media/531364/download Methodology: Isothermal Nucleic Acid Amplification Performed By: #### C OVID #### [facility] [address] [place] [address] [employer] Officer: Brandon Anaya MD SARS-CoV-2 Source .NASOPHARYNGEAL SWAB Normal [facility] Comment on above: Performed By: #### C KENILWORTH #### [facility] [address] [place] [address] [employer] Officer: Brandon Anaya MD Troponinon 10-09-2019 Troponin I.cardiac [Mass/Vol] 10 ng/L Normal 0-14 [facility] Comment on above: Result Comment: High Sensitivity Troponin values cannot be compared with other Troponin methodologies. Patients with high levels of Biotin oral intake (i.e >5mg/day) may have falsely decreased Troponin levels. Samples collected within 8 hours of biotin intake may require additional information for diagnosis. Performed By: #### Peg PRASAD #### [facility] [address] [place] [address] [employer] Officer: Brandon Anaya MD Troponin I.cardiac [Mass/Vol] NOT REPORTED Normal <0.03 [facility] Comment on above: Performed By: #### Peg PRASAD, #### [facility] [address] [place] [address] [employer] Senior Officer: Brandon Anaya MD Troponin I.cardiac [Mass/Vol] 10 ng/L Normal 0-14 [facility] Comment on above: Result Comment: High Sensitivity Troponin values cannot be compared with other Troponin methodologies. Patients with high levels of Biotin oral intake (i.e >5mg/day) may have falsely decreased Troponin levels. Samples collected within 8 hours of biotin intake may require additional information for diagnosis. Performed By: #### C DP, CP, LIP, TROPI, LIPRF, GLYHGB #### [facility] [employer] [facility] [place], [place] [phone] [employer]: Brandon Anaya MD Troponin I.cardiac [Mass/Vol] NOT REPORTED [place] Troponin T.cardiac [Mass/Vol] NOT REPORTED <0.03 ng/mL [place] Troponin, High Sensitivity 10 ng/L 0 - 14 ng/L [place] Comment on above: High Sensitivity Troponin values cannot be compared with other Troponin methodologies. Patients with high levels of Biotin oral intake (i.e >5mg/day) may have falsely decreased Troponin levels. Samples collected within 8 hours of biotin intake may require additional information for diagnosis. Troponin I.cardiac [Mass/Vol] NOT REPORTED Normal <0.03 [facility] Comment on above: Performed By: #### C DP, CP, LIP, TROPI, LIPRF, GLYHGB #### [facility] [employer] [address] [place] [phone] [employer] Officer: Brandon Anaya MD Troponin I.cardiac [Mass/Vol] NOT REPORTED [place] Troponin T.cardiac [Mass/Vol] NOT REPORTED <0.03 ng/mL [place] Troponin, High Sensitivity 10 ng/L 0 - 14 ng/L [place] Comment on above: High Sensitivity Troponin values cannot be compared with other Troponin methodologies. Patients with high levels of Biotin oral intake (i.e >5mg/day) may have falsely decreased Troponin levels. Samples collected within 8 hours of biotin intake may require additional information for diagnosis. UA w/Reflex Cultureon 2019 Acetoacetic Acid,Ur TRACE Abnormal NEG [facility] Comment on above: Performed By: #### C DP, CP, LIP, TROPI, LIPRF, GLYHGB #### [facility] [employer] [facility] [place], [place] [phone] [employer] Officer: Brandon Anaya MD Bilirubin, SemiQt,Ur Negative Normal NEG [facility] Comment on above: Performed By: #### C DP, CP, LIP, TROPI, LIPRF, GLYHGB #### [address] [address] [employer] Officer: Brandon Anaya MD Color (U) YELLOW Normal YEL [facility] Comment on above: Performed By: #### C DP, CP, LIP, TROPI, LIPRF, GLYHGB #### [address] [address] [employer] Senior Officer: Brandon Anaya MD Glucose Ql (U) Negative Normal NEG [facility] Comment on above: Performed By: #### C DP, CP, LIP, TROPI, LIPRF, GLYHGB #### [address] [address] [employer] Senior Officer: Brandon Anaya MD Hemoglobin, Ur Negative Normal NEG [facility] Comment on above: Performed By: #### C DP, CP, LIP, TROPI, LIPRF, GLYHGB #### [address] [address] [employer] Officer: Brandon Anaya MD Leukocyte esterase Test strip Ql (U) Negative Normal NEG [facility] Comment on above: Performed By: #### C DP, CP, LIP, TROPI, LIPRF, GLYHGB #### [address] [address] [employer] Senior Officer: Brandon Anaya MD Nitrite,Ur Negative Normal NEG [facility] Comment on above: Performed By: #### C DP, CP, LIP, TROPI, LIPRF, GLYHGB #### [address] [address] [employer] Senior Officer: Brandon Anaya MD pH (U) 5.5 [pH] Normal 5.0-8.0 [facility] Comment on above: Performed By: #### C DP, CP, LIP, TROPI, LIPRF, GLYHGB #### [address] [address] [employer] Senior Officer: Brandon Anaya MD Protein Ql (U) 1+ Abnormal NEG [facility] Comment on above: Performed By: #### C DP, CP, LIP, TROPI, LIPRF, GLYHGB #### [address] [address] [employer] Officer: Brandon Anaya MD Specific gravity (U) [Rel density] 1.086 High 1.005-1.030 [facility] Comment on above: Performed By: #### C DP, CP, LIP, TROPI, LIPRF, GLYHGB #### [address] [address] [employer] Officer: Brandon Anaya MD Turbidity CLEAR Normal CLEAR [facility] Comment on above: Performed By: #### C DP, CP, LIP, TROPI, LIPRF, GLYHGB #### [address] [address] [employer] Senior Officer: Brandon Anaya MD Urobilinogen,Ur Normal Normal NORM [facility] Comment on above: Performed By: #### C DP, CP, LIP, TROPI, LIPRF, GLYHGB #### [address] [address] [employer] Senior Officer: Brandon Anaya MD Comment NOT REPORTED Normal [facility] Comment on above: Performed By: #### C DP, CP, LIP, TROPI, LIPRF, GLYHGB #### [address] [address] [employer] Senior Officer: Brandon Anaya MD URINALYSIS, MICROon 10-09-19 20 Amorphous, UA NOT REPORTED None [facility], [place] Bacteria, UA NOT REPORTED None [facility], [place] Casts UA NOT REPORTED [place] Crystals, UA NOT REPORTED None /HPF [place] Epithelial Cells UA 10 TO 20 [place] Mucus, UA NOT REPORTED None [place] Other Observations UA NOT REPORTED NOT REQ. [place] RBC (U) [#/Vol] 0 TO 2 [place] Renal Epithelial, UA NOT REPORTED 0 /HPF [place] Trichomonas, UA NOT REPORTED None [place] WBC, UA 0 TO 2 [place] Yeast, UA NOT REPORTED None [place] ABDOMEN LIMITEDon 020 [place] ABDOMEN LIMITED EXAMINATION: RIGHT UPPER QUADRANT ULTRASOUND 10/09/2019 3:35 pm COMPARISON: None. 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 LIVER, GALLBLADDER, PANCREASon 10-09-2019 EXAMINATION: RIGHT U PPER QUADRANT ULTRASOUND 10/09/2019 3:35 pm COMPARISON: None. 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 [place] Unremarkable right u pper quadrant ultrasound. [place] Pri[place], [place] Incoming Radiant Results From [employer] - 10/09/2019 4:01 PM EDT EXAMINATION: RIGHT UPPER QUADRANT ULTRASOUND 10/09/2019 3:35 pm COMPARISON: None. 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 IMPRESSION: Unremarkable right upper quadrant ultrasound. [place] Urinalysis Reflex to Culture on 10-09-2019 Bilirubin Urine Negative NEGATIVE [place] Color, UA YELLOW YELLOW [place] Glucose, Ur Negative NEGATIVE [place] Interpretation and review of laboratory results Abnormal [place] Ketones Ql (U) TRACE Abnormal NEGATIVE [place] Leukocyte esterase Test strip Ql (U) Negative NEGATIVE [place] Nitrite, Urine Negative NEGATIVE [place] pH, UA 5.5 [place] Protein (U) [Mass/Vol] 1+ Abnormal NEGATIVE [place] Specific [place], UA 1.086 High [place] Turbidity UA CLEAR CLEAR [place] Urinalysis Comments NOT REPORTED [place] Urine Hgb Negative NEGATIVE [place] Urobilinogen, Urine Normal Normal [place] Urinalysis,Microon 0 ----- Normal [facility] Comment on above: Performed By: #### C DP, CP, LIP, TROPI, LIPRF, GLYHGB #### [address] [address] [employer] Officer: Brandon Anaya MD Epithelial cells LM.HPF (Urine sed) [#/Area] 10 TO 20 Normal 0-5 [facility] Comment on above: Performed By: #### C DP, CP, LIP, TROPI, LIPRF, GLYHGB #### [address] [address] [employer] Officer: Brandon Anaya MD RBC (U) [#/Vol] 0 TO 2 Normal 0-2 [facility] Comment on above: Performed By: #### C DP, CP, LIP, TROPI, LIPRF, GLYHGB #### [address] [address] [employer] Officer: Brandon Anaya MD WBC (U) [#/Vol] 0 TO 2 Normal 0-5 [facility] Comment on above: Performed By: #### C DP, CP, LIP, TROPI, LIPRF, GLYHGB #### [address] [address] [employer] Officer: Brandon Anaya MD Amorphous sediment LM Ql (Urine sed) NOT REPORTED Normal NONE [facility] Comment on above: Performed By: #### C DP, CP, LIP, TROPI, LIPRF, GLYHGB #### [address] [address] [employer] Officer: Brandon Anaya MD Bacteria LM.HPF (Urine sed) [#/Area] NOT REPORTED Normal NONE [facility] Comment on above: Performed By: #### C DP, CP, LIP, TROPI, LIPRF, GLYHGB #### [address] [address] [employer] Officer: Brandon Anaya MD Casts LM.LPF (Urine sed) [#/Area] NOT REPORTED Normal 0-2 [facility] Comment on above: Performed By: #### C DP, CP, LIP, TROPI, LIPRF, GLYHGB #### [facility] [employer] [address] [place] [phone] [employer] Officer: Brandon Anaya MD Crystals LM Nom (Urine sed) NOT REPORTED Normal [facility] Comment on above: Performed By: #### C DP, CP, LIP, TROPI, LIPRF, GLYHGB #### [address] [address] [employer] Officer: Brandon Anaya MD Epithelial, Renal NOT REPORTED Normal 0 [facility] Comment on above: Performed By: #### C DP, CP, LIP, TROPI, LIPRF, GLYHGB #### [address] [address] [employer] Senior Officer: Brandon Anaya MD Mucus Strands NOT REPORTED Normal [facility] Comment on above: Performed By: #### C DP, CP, LIP, TROPI, LIPRF, GLYHGB #### [facility] [employer] [address] [place] [phone] [employer] Officer: Brandon Anaya MD Other Observations NOT REPORTED Normal NREQ [facility] Comment on above: Performed By: #### C DP, CP, LIP, TROPI, LIPRF, GLYHGB #### [facility] [employer] [address] [place] [phone] [employer] Officer: Brandon Anaya MD Trichomonas NOT REPORTED Normal NONE [facility] Comment on above: Performed By: #### C DP, CP, LIP, TROPI, LIPRF, GLYHGB #### [facility] [address] [place], [place] [id number] [employer] Officer: Brandon Anaya MD Yeast LM Ql (Urine sed) NOT REPORTED Normal NONE [facility] Comment on above: Performed By: #### C DP, CP, LIP, TROPI, LIPRF, GLYHGB #### [facility] [employer] [address] [place] [address] [employer]: Brandon Anaya MD XR ABDOMEN (KUB) (SINGLE [...] Naga Browning MD 10/09/19 Final result Normal [facility] No evidence of bowel obstruction. [place] EXAMINATION: ONE SUP INE XRAY VIEW(S) OF THE ABDOMEN 10/09/2019 7:17 pm COMPARISON: None. HISTORY: ORDERING SYSTEM PROVIDED HISTORY: r/o SBO TECHNOLOGIST PROVIDED HISTORY: r/o SBO Reason for Exam: port Supine FINDINGS: Nonspecific, nonobstructive bowel gas pattern with paucity of bowel gas. Atherosclerotic calcifications. Retained contrast in the urinary bladder. No acute osseous abnormality. [place] Incoming Radiant Results From [employer] - 10/09/2019 7:35 PM EDT EXAMINATION: ONE [...] abnormality. IMPRESSION: No evidence of bowel obstruction. [facility] [place] Aldosteroneon 07-02-2017 Aldosterone 4.8 ng/dL Normal [facility] Comment on above: Result Comment: (NOT [...] gender-specific referenceintervals for this test in the [employer] [facility] Test Directory([employer]).Performed by [employer],[address] [place] [id number] unu.[employer], Nik Rosas MD, Lab. DirectorPerformed at [facility] [address] [place], [place] [id number] ([phone] Performed By: #### Domenico ORTI ####[facility] [place] [address] #### MARYAM, AREN ####[facility] [place] [address] Renin Activityon 07-02-2017 Renin Activity 0.1 ng/mL/hr Normal [facility] Comment on above: Result Comment: (NOT E)INTERPRETIVE INFORMATION: Renin ActivityAdult, Normal sodium diet: Supine ................. 0.2-1.6 ng/mL/hr Upright ................ 0.5-4.0 ng/mL/hrChildren, Normal sodium diet, Supine: [place] (1-7 days) ..... 2.0-35.0 ng/mL/hr Cord blood [...] activity when angiotensinogen isdecreased.See Compliance Statement D: www.[employer]/CSPerformed by [employer],[address] [place] [address] whb.[employer], Nik Rosas MD, Lab. DirectorPerformed at [facility] [address] [facility] [place] [address] ([phone] Performed By: #### C OROC ####[address] [address] #### AALD, AREN ####[facility] [place] [address] Basic Metab w/rfx MGon 06-29 (cont.) Normal [facility] Comment on above: Result Comment: Aver age GFR for 70 or more years old: 75 mL/min/1.73sq mChronic Kidney Disease: <60 mL/min/1.73sq mKidney failure: <15 mL/min/1.73sq meGFR calculated using average adult body mass. Additional eGFR calculator available at:http://www.[employer]/multiple_crcl_2012.htmPerformed at [facility] [address] [place] [address] Performed By: #### C DP, BMPX, TROPI ####[address] [address] Anion gap 10 mmol/L Normal 9-17 [facility] Comment on above: Performed By: #### C DP, BMPX, TROPI ####[address] [address] Calcium 9.1 mg/dL Normal 8.6-10.4 [facility] Comment on above: Performed By: #### C DP, BMPX, TROPI ####[address] [address] Chloride 106 mmol/L Normal 98-107 [facility] Comment on above: Performed By: #### C DP, BMPX, TROPI ####[address] [address] CO2 26 mmol/L Normal 20-31 [facility] Comment on above: Performed By: #### C DP, BMPX, TROPI ####[address] [address] Creatinine 0.66 mg/dL Normal 0.50-0.90 [facility] Comment on above: Performed By: #### C DP, BMPX, TROPI ####[address] [place] [address] eGFR (non-black) mL/min/{1.73_m2} Normal >60 [facility] Comment on above: Performed By: #### C DP, BMPX, TROPI ####[address] [address] Glucose mass conc 104 mg/dL High 70-99 [facility] Comment on above: Performed By: #### C DP, BMPX, TROPI ####[address] [address] Potassium molar conc 4.1 mmol/L Normal 3.7-5.3 [facility] Comment on above: Performed By: #### C DP, BMPX, TROPI ####[address] [address] Sodium 142 mmol/L Normal 135-144 [facility] Comment on above: Performed By: #### C DP, BMPX, TROPI ####[address] [address] Urea nitrogen 13 mg/dL Normal 8-23 [facility] Comment on above: Performed By: #### C DP, BMPX, TROPI ####[address] [address] BUN/CRE Ratio NOT REPORTED Normal 9-20 [facility] Comment on above: Performed By: #### C DP, BMPX, TROPI ####[address] [address] Staging: NOT REPORTED Normal [facility] Comment on above: Performed By: #### C DP, BMPX, TROPI ####[address] [address] CBC with Diffon 06-29-2017 Abs. Basophil 0.00 k/uL Normal 0.0-0.2 [facility] Comment on above: Result Comment: Perf ormed at [facility] [address] [place] [address] Performed By: #### C DP, BMPX, TROPI ####[facility] [place] [address] Abs.Neutrophil (Seg) 3.80 k/uL Normal 1.3-9.1 [facility] Comment on above: Performed By: #### C DP, BMPX, TROPI ####[address] [address] Basophils/100 WBC Auto (Bld) 1 % Normal 0-2 [facility] Comment on above: Performed By: #### C DP, BMPX, TROPI ####[address] [address] Eosinophils 0.20 10*3/uL Normal 0.0-0.4 [facility] Comment on above: Performed By: #### C DP, BMPX, TROPI ####[address] [address] Eosinophils/100 leukocytes 2 % Normal 0-4 [facility] Comment on above: Performed By: #### C DP, BMPX, TROPI ####[address] [address] Erythrocyte distribution width Auto Ratio (RBC) 14.5 % Normal 11.5-14.9 [facility] Comment on above: Performed By: #### C DP, BMPX, TROPI ####[address] [place] [address] Erythrocytes (RBC) 4.36 10*6/uL Normal 4.0-5.2 [facility] Comment on above: Performed By: #### C DP, BMPX, TROPI ####[place] [address] [place] [address] Hematocrit (HCT) 38.3 % Normal 36-46 [facility] Comment on above: Performed By: #### C DP, BMPX, TROPI ####[facility] [place] [address] Hemoglobin mass conc (Bld) 12.9 g/dL Normal 12.0-16.0 [facility] Comment on above: Performed By: #### C DP, BMPX, TROPI ####[address] [place] [address] Lymphocytes 2.20 10*3/uL Normal 1.0-4.8 [facility] Comment on above: Performed By: #### C DP, BMPX, TROPI ####[address] [facility] [place] [address] Lymphocytes/100 leukocytes 32 % Normal 24-44 [facility] Comment on above: Performed By: #### C DP, BMPX, TROPI ####[address] [place] [address] MCH 29.5 pg Normal 26-34 [facility] Comment on above: Performed By: #### C DP, BMPX, TROPI ####[address] [facility] [place] [address] MCHC mass conc (RBC) 33.6 g/dL Normal 31-37 [facility] Comment on above: Performed By: #### C DP, BMPX, TROPI ####[address] [place] [address] MCV 87.8 fL Normal 80-100 [facility] Comment on above: Performed By: #### C DP, BMPX, TROPI ####[address] [place] [address] Monocytes 0.50 10*3/uL Normal 0.1-1.3 [facility] Comment on above: Performed By: #### C DP, BMPX, TROPI ####[address] [place] [address] Monocytes/100 leukocytes 8 % High 1-7 [facility] Comment on above: Performed By: #### C DP, BMPX, TROPI ####[address] [address] Neutrophil (Seg) 57 % Normal 36-66 [facility] Comment on above: Performed By: #### C DP, BMPX, TROPI ####[address] [address] Platelet mean volume (PMV) 8.5 fL Normal 6.0-12.0 [facility] Comment on above: Performed By: #### C DP, BMPX, TROPI ####[address] [address] Platelets 219 10*3/uL Normal 150-450 [facility] Comment on above: Performed By: #### C DP, BMPX, TROPI ####[address] [address] WBC (Leukocytes) 6.7 10*3/uL Normal 3.5-11.0 [facility] Comment on above: Performed By: #### C DP, BMPX, TROPI ####[address] [address] Auto Diff Performed NOT REPORTED Normal [facility] Comment on above: Performed By: #### C DP, BMPX, TROPI ####[facility] [place] [address].[place] [address] Erythrocyte morphology NOT REPORTED Normal [facility] Comment on above: Performed By: #### C DP, BMPX, TROPI ####[address] [place] [address] Erythrocytes (RBC) NOT REPORTED Normal [facility] Comment on above: Performed By: #### C DP, BMPX, TROPI ####[address] [place] [address] Granulocytes/100 WBC (Bld) NOT REPORTED Normal 0.00-0.30 [facility] Comment on above: Performed By: #### C DP, BMPX, TROPI ####[address] [place] [address] Immature granulocytes #/vol (Bld) NOT REPORTED Normal 0 [facility] Comment on above: Performed By: #### C DP, BMPX, TROPI ####[address] [place] [address] Platelets NOT REPORTED Normal [facility] Comment on above: Performed By: #### C DP, BMPX, TROPI ####[address] [place] [address] WBC Morphology NOT REPORTED Normal [facility] Comment on above: Performed By: #### C DP, BMPX, TROPI ####[address] [place] [address] Troponinon 06-29-2017 Troponin I.cardiac mass conc Normal [facility] Comment on above: Result Comment: Refe rence Range: <0.03 Within reference range. 0.03-0.09 Possible myocardial damage.Repeat at appropriate intervals to rule out chronic elevation. >= 0.10 Indicative of myocardial damage.Patients with high levels of Biotin oral intake (i.e >5mg/day) may have falsely decreased Troponin T levels. Samples collected within 8 hours of biotin intake may require additional information for diagnosis.Performed at [place] [id number] [place] [address] Performed By: #### C DP, BMPX, TROPI ####[address] [address] Troponin T.cardiac mass conc ug/L Normal <0.03 [facility] Comment on above: Result Comment: Trop onin T results cannot be compared to Troponin-I results. Performed By: #### C DP, BMPX, TROPI ####[address] [address] Troponin I.cardiac mass conc Normal [facility] Comment on above: Result Comment: Refe rence Range: <0.03 Within reference range. 0.03-0.09 Possible myocardial damage.Repeat at appropriate intervals to rule out chronic elevation. >= 0.10 Indicative of myocardial damage.Patients with high levels of Biotin oral intake (i.e >5mg/day) may have falsely decreased Troponin T levels. Samples collected within 8 hours of biotin intake may require additional information for diagnosis.Performed at [address] [address] Performed By: #### T ROPI ####[address] [address] Troponin T.cardiac mass conc ug/L Normal <0.03 [facility] Comment on above: Result Comment: Trop onin T results cannot be compared to Troponin-I results. Performed By: #### T ROPI ####[address] [address] XR CHEST (2 VW)on 06-29-2017 XR CHEST [...] acute cardiopulmonary findings.Interpreted by:FABIANA Oliverigned by:Zaire Dominguez MD5/6/18Final result Normal [facility] Basic Metab w/rfx MGon 06-28 (cont.) Normal [facility] Comment on above: Result Comment: Aver age GFR for 70 or more years old: 75 mL/min/1.73sq mChronic Kidney Disease: <60 mL/min/1.73sq mKidney failure: <15 mL/min/1.73sq meGFR calculated using average adult body mass. Additional eGFR calculator available at:http://www.[employer] [facility]/multiple_crcl_2012.htmPerformed at [facility] [address] [place] [address] Performed By: #### C DP, BMPX ####[facility] [place] [address] Anion gap 13 mmol/L Normal 9-17 [facility] Comment on above: Performed By: #### C DP, BMPX ####[facility] [place] [address] Calcium 8.7 mg/dL Normal 8.6-10.4 [facility] Comment on above: Performed By: #### C DP, BMPX ####[facility] [facility] [place] [address] Chloride 106 mmol/L Normal 98-107 [facility] Comment on above: Performed By: #### C DP, BMPX ####[facility] [place] [address].[place] [address] CO2 22 mmol/L Normal 20-31 [facility] Comment on above: Performed By: #### C DP, BMPX ####[facility] [place] [address] Creatinine 0.53 mg/dL Normal 0.50-0.90 [facility] Comment on above: Performed By: #### C DP, BMPX ####[address] [address] eGFR (non-black) mL/min/{1.73_m2} Normal >60 [facility] Comment on above: Performed By: #### C DP, BMPX ####[address] [address] Glucose mass conc 168 mg/dL High 70-99 [facility] Comment on above: Performed By: #### C DP, BMPX ####[facility] [place] [address].[place] [address] Potassium molar conc 3.7 mmol/L Normal 3.7-5.3 [facility] Comment on above: Performed By: #### C DP, BMPX ####[address] [address] Sodium 141 mmol/L Normal 135-144 [facility] Comment on above: Performed By: #### C DP, BMPX ####[facility] [place] [address] Urea nitrogen 11 mg/dL Normal 8-23 [facility] Comment on above: Performed By: #### C DP, BMPX ####[facility] [place] [address] BUN/CRE Ratio NOT REPORTED Normal 9-20 [facility] Comment on above: Performed By: #### C DP, BMPX ####[facility] [place] [address] Staging: NOT REPORTED Normal [facility] Comment on above: Performed By: #### C DP, BMPX ####[facility] [place] [address] Basic Metabolic Profon 06-28 (cont.) Normal [facility] Comment on above: Result Comment: Aver age GFR for 70 or more years old: 75 mL/min/1.73sq mChronic Kidney Disease: <60 mL/min/1.73sq mKidney failure: <15 mL/min/1.73sq meGFR calculated using average adult body mass. Additional eGFR calculator available at:http://www.[employer]/multiple_crcl_2012.htmPerformed at [facility] [address] [place] [address] Performed By: #### C DP, BMP, TROPI, TSHX ####[facility] [place] [address] Anion gap 13 mmol/L Normal 9-17 [facility] Comment on above: Performed By: #### C DP, BMP, TROPI, TSHX ####[facility] [place] [address] Calcium 9.2 mg/dL Normal 8.6-10.4 [facility] Comment on above: Performed By: #### C DP, BMP, TROPI, TSHX ####[facility] [place] [address] Chloride 102 mmol/L Normal 98-107 [facility] Comment on above: Performed By: #### C DP, BMP, TROPI, TSHX ####[facility] [place] [address] CO2 26 mmol/L Normal 20-31 [facility] Comment on above: Performed By: #### C DP, BMP, TROPI, TSHX ####[facility] [place] [address] Creatinine 0.61 mg/dL Normal 0.50-0.90 [facility] Comment on above: Performed By: #### C DP, BMP, TROPI, TSHX ####[facility] [place] [address] eGFR (non-black) mL/min/{1.73_m2} Normal >60 [facility] Comment on above: Performed By: #### C DP, BMP, TROPI, TSHX ####[address] [address] Glucose mass conc 108 mg/dL High 70-99 [facility] Comment on above: Performed By: #### C DP, BMP, TROPI, TSHX ####[facility] [place] [address] Potassium molar conc 4.7 mmol/L Normal 3.7-5.3 [facility] Comment on above: Performed By: #### C DP, BMP, TROPI, TSHX ####[address] [address] Sodium 141 mmol/L Normal 135-144 [facility] Comment on above: Performed By: #### C DP, BMP, TROPI, TSHX ####[facility] [place] [address] Urea nitrogen 16 mg/dL Normal 8-23 [facility] Comment on above: Performed By: #### C DP, BMP, TROPI, TSHX ####[facility] [place] [address] BUN/CRE Ratio NOT REPORTED Normal 9-20 [facility] Comment on above: Performed By: #### C DP, BMP, TROPI, TSHX ####[facility] [place] [address] Staging: NOT REPORTED Normal [facility] Comment on above: Performed By: #### C DP, BMP, TROPI, TSHX ####[address] [address] CBC with Diffon 06-28-2017 Abs. Basophil 0.00 k/uL Normal 0.0-0.2 [facility] Comment on above: Result Comment: Perf ormed at [facility] [address] [place] [address] Performed By: #### C DP, BMPX ####[address] [address] Abs.Neutrophil (Seg) 5.50 k/uL Normal 1.3-9.1 [facility] Comment on above: Performed By: #### C DP, BMPX ####[address] [address] Basophils/100 WBC Auto (Bld) 1 % Normal 0-2 [facility] Comment on above: Performed By: #### C DP, BMPX ####[address] [address] Eosinophils 0.10 10*3/uL Normal 0.0-0.4 [facility] Comment on above: Performed By: #### C DP, BMPX ####[facility] [facility] [place] [address] Eosinophils/100 leukocytes 2 % Normal 0-4 [facility] Comment on above: Performed By: #### C DP, BMPX ####[facility] [facility] [place] [address] Erythrocyte distribution width Auto Ratio (RBC) 14.8 % Normal 11.5-14.9 [facility] Comment on above: Performed By: #### C DP, BMPX ####[address] [address] Erythrocytes (RBC) 4.47 10*6/uL Normal 4.0-5.2 [facility] Comment on above: Performed By: #### C DP, BMPX ####[address] [address] Hematocrit (HCT) 39.8 % Normal 36-46 [facility] Comment on above: Performed By: #### C DP, BMPX ####[facility] [place] [address].[place] [address] Hemoglobin mass conc (Bld) 13.3 g/dL Normal 12.0-16.0 [facility] Comment on above: Performed By: #### C DP, BMPX ####[address] [place] [address] Lymphocytes 1.90 10*3/uL Normal 1.0-4.8 [facility] Comment on above: Performed By: #### C DP, BMPX ####[place] [address] [place] [address] Lymphocytes/100 leukocytes 23 % Low 24-44 [facility] Comment on above: Performed By: #### C DP, BMPX ####[facility] [place] [address] MCH 29.7 pg Normal 26-34 [facility] Comment on above: Performed By: #### C DP, BMPX ####[facility] [place] [address] MCHC mass conc (RBC) 33.3 g/dL Normal 31-37 [facility] Comment on above: Performed By: #### C DP, BMPX ####[facility] [place] [address] MCV 89.1 fL Normal 80-100 [facility] Comment on above: Performed By: #### C DP, BMPX ####[facility] [place] [address].[place] [address] Monocytes 0.50 10*3/uL Normal 0.1-1.3 [facility] Comment on above: Performed By: #### C DP, BMPX ####[facility] [facility] [place] [address] Monocytes/100 leukocytes 6 % Normal 1-7 [facility] Comment on above: Performed By: #### C DP, BMPX ####[facility] [place] [address].[place] [address] Neutrophil (Seg) 68 % High 36-66 [facility] Comment on above: Performed By: #### C DP, BMPX ####[facility] [place] [address] Platelet mean volume (PMV) 8.6 fL Normal 6.0-12.0 [facility] Comment on above: Performed By: #### C DP, BMPX ####[facility] [place] [address] Platelets 238 10*3/uL Normal 150-450 [facility] Comment on above: Performed By: #### C DP, BMPX ####[facility] [place] [address] WBC (Leukocytes) 8.0 10*3/uL Normal 3.5-11.0 [facility] Comment on above: Performed By: #### C DP, BMPX ####[address] [address] Auto Diff Performed NOT REPORTED Normal [facility] Comment on above: Performed By: #### C DP, BMPX ####[address] [address] Erythrocyte morphology NOT REPORTED Normal [facility] Comment on above: Performed By: #### C DP, BMPX ####[address] [address] Erythrocytes (RBC) NOT REPORTED Normal [facility] Comment on above: Performed By: #### C DP, BMPX ####[address] [address] Granulocytes/100 WBC (Bld) NOT REPORTED Normal 0.00-0.30 [facility] Comment on above: Performed By: #### C DP, BMPX ####[address] [address] Immature granulocytes #/vol (Bld) NOT REPORTED Normal 0 [facility] Comment on above: Performed By: #### C DP, BMPX ####[address] [address] Platelets NOT REPORTED Normal [facility] Comment on above: Performed By: #### C DP, BMPX ####[address] [address] WBC Morphology NOT REPORTED Normal [facility] Comment on above: Performed By: #### C DP, BMPX ####[address] [address] Abs. Basophil 0.10 k/uL Normal 0.0-0.2 [facility] Comment on above: Result Comment: Perf ormed at [facility] [address] [place] [address] Performed By: #### C DP, BMP, TROPI, TSHX ####[facility] [place] [address] Abs.Neutrophil (Seg) 4.20 k/uL Normal 1.3-9.1 [facility] Comment on above: Performed By: #### C DP, BMP, TROPI, TSHX ####[address] [address] Basophils/100 WBC Auto (Bld) 1 % Normal 0-2 [facility] Comment on above: Performed By: #### C DP, BMP, TROPI, TSHX ####[address] [address] Eosinophils 0.20 10*3/uL Normal 0.0-0.4 [facility] Comment on above: Performed By: #### C DP, BMP, TROPI, TSHX ####[address] [address] Eosinophils/100 leukocytes 2 % Normal 0-4 [facility] Comment on above: Performed By: #### C DP, BMP, TROPI, TSHX ####[address] [address] Erythrocyte distribution width Auto Ratio (RBC) 14.7 % Normal 11.5-14.9 [facility] Comment on above: Performed By: #### C DP, BMP, TROPI, TSHX ####[facility] [facility] [place] [address] Erythrocytes (RBC) 4.38 10*6/uL Normal 4.0-5.2 [facility] Comment on above: Performed By: #### C DP, BMP, TROPI, TSHX ####[facility] [facility] [place] [address] Hematocrit (HCT) 38.7 % Normal 36-46 [facility] Comment on above: Performed By: #### C DP, BMP, TROPI, TSHX ####[facility] [place] [address] Hemoglobin mass conc (Bld) 12.9 g/dL Normal 12.0-16.0 [facility] Comment on above: Performed By: #### C DP, BMP, TROPI, TSHX ####[facility] [place] [address] Lymphocytes 2.60 10*3/uL Normal 1.0-4.8 [facility] Comment on above: Performed By: #### C DP, BMP, TROPI, TSHX ####[facility] [place] [address] Lymphocytes/100 leukocytes 34 % Normal 24-44 [facility] Comment on above: Performed By: #### C DP, BMP, TROPI, TSHX ####[facility] [place] [address] MCH 29.6 pg Normal 26-34 [facility] Comment on above: Performed By: #### C DP, BMP, TROPI, TSHX ####[facility] [place] [address] MCHC mass conc (RBC) 33.4 g/dL Normal 31-37 [facility] Comment on above: Performed By: #### C DP, BMP, TROPI, TSHX ####[facility] [place] [address] MCV 88.4 fL Normal 80-100 [facility] Comment on above: Performed By: #### C DP, BMP, TROPI, TSHX ####[facility] [place] [address] Monocytes 0.60 10*3/uL Normal 0.1-1.3 [facility] Comment on above: Performed By: #### C DP, BMP, TROPI, TSHX ####[address] [address] Monocytes/100 leukocytes 8 % High 1-7 [facility] Comment on above: Performed By: #### C DP, BMP, TROPI, TSHX ####[address] [address] Neutrophil (Seg) 55 % Normal 36-66 [facility] Comment on above: Performed By: #### C DP, BMP, TROPI, TSHX ####[address] [address] Platelet mean volume (PMV) 8.6 fL Normal 6.0-12.0 [facility] Comment on above: Performed By: #### C DP, BMP, TROPI, TSHX ####[address] [address] Platelets 229 10*3/uL Normal 150-450 [facility] Comment on above: Performed By: #### C DP, BMP, TROPI, TSHX ####[address] [address] WBC (Leukocytes) 7.7 10*3/uL Normal 3.5-11.0 [facility] Comment on above: Performed By: #### C DP, BMP, TROPI, TSHX ####[address] [address] Auto Diff Performed NOT REPORTED Normal [facility] Comment on above: Performed By: #### C DP, BMP, TROPI, TSHX ####[address] [address] Erythrocyte morphology NOT REPORTED Normal [facility] [facility] Comment on above: Performed By: #### C DP, BMP, TROPI, TSHX ####[address] [address] Erythrocytes (RBC) NOT REPORTED Normal [facility] Comment on above: Performed By: #### C DP, BMP, TROPI, TSHX ####[address] [address] Granulocytes/100 WBC (Bld) NOT REPORTED Normal 0.00-0.30 [facility] Comment on above: Performed By: #### C DP, BMP, TROPI, TSHX ####[address] [address] Immature granulocytes #/vol (Bld) NOT REPORTED Normal 0 [facility] Comment on above: Performed By: #### C DP, BMP, TROPI, TSHX ####[address] [address] Platelets NOT REPORTED Normal [facility] Comment on above: Performed By: #### C DP, BMP, TROPI, TSHX ####[address] [address] WBC Morphology NOT REPORTED Normal [facility] Comment on above: Performed By: #### C DP, BMP, TROPI, TSHX ####[facility] [address] Cortisolon 06-28-2017 Cortisol 4.7 ug/dL Normal 2.7-18.4 [facility] Comment on above: Result Comment: Lukasz isol Reference Range: AM 6.0-18.4 PM 2.7-10.5Performed at [address] [address] Performed By: #### C ORTI ####[address] [address] #### AALD, AREN ####[address] [address] Collection Info. NOT REPORTED Normal [facility] Comment on above: Performed By: #### C ORTI ####[address] [address] #### AALD, AREN ####[address] [address] Renin Activityon 06-28-2017 Comment: NOT REPORTED Normal [facility] Comment on above: Performed By: #### C ORTI ####[address] [address] #### AALD, AREN ####[address] [address] TSH w/reflex to FT4on 2017 Thyroid stimulating hormone (TSH) 2.65 m[IU]/L Normal 0.30-5.00 [facility] Comment on above: Result Comment: Perf ormed at [address] [address] Performed By: #### C DP, BMP, TROPI, TSHX ####[address] [address] Troponinon 06-28-2017 Troponin I.cardiac mass conc Normal [facility] Comment on above: Result Comment: Refe rence Range: <0.03 Within reference range. 0.03-0.09 Possible myocardial damage.Repeat at appropriate intervals to rule out chronic elevation. >= 0.10 Indicative of myocardial damage.Patients with high levels of Biotin oral intake (i.e >5mg/day) may have falsely decreased Troponin T levels. Samples collected within 8 hours of biotin intake may require additional information for diagnosis.Performed at [id number] [place] [address] Performed By: #### T ROPI ####[address] [place] [address] Troponin T.cardiac mass conc ug/L Normal <0.03 [facility] Comment on above: Result Comment: Trop onin T results cannot be compared to Troponin-I results. Performed By: #### T ROPI ####[address] [address] Troponin I.cardiac mass conc Normal [facility] Comment on above: Result Comment: Refe [...] additional information for diagnosis.Performed at [facility] [address] [place] [address] Performed By: #### T ROPI ####[address] [address] Troponin T.cardiac mass conc ug/L Normal <0.03 [facility] Comment on above: Result Comment: Trop onin T results cannot be compared to Troponin-I results. Performed By: #### T ROPI ####[address] [address] Troponin I.cardiac mass conc Normal [facility] Comment on above: Result Comment: Refe rence Range: <0.03 Within reference range. 0.03-0.09 Possible myocardial damage.Repeat at appropriate intervals to rule out chronic elevation. >= 0.10 Indicative of myocardial damage.Patients with high levels of Biotin oral intake (i.e >5mg/day) may have falsely decreased Troponin T levels. Samples collected within 8 hours of biotin intake may require additional information for diagnosis.Performed at [address] [address] Performed By: #### C DP, BMP, TROPI, TSHX ####[address] [address] Troponin T.cardiac mass conc ug/L Normal <0.03 [facility] Comment on above: Result Comment: Trop onin T results cannot be compared to Troponin-I results. Performed By: #### C DP, BMP, TROPI, TSHX ####[address] [address] UA w/Reflex Cultureon 2017 Acetaminophen mass conc Negative Normal NEG [facility] Comment on above: Performed By: #### U AX ####[address] [address] Bilirubin (direct) Negative Normal NEG [facility] Comment on above: Performed By: #### U AX ####[address] [address] Comment Microscopic exam not performed based on chemical results unless requested in Normal [facility] Comment on above: Result Comment: orig inal order.Performed at [address] [address] Performed By: #### U AX ####[address] [place] [address] Hemoglobin mass conc (Bld) Negative Normal NEG [facility] Comment on above: Performed By: #### U AX ####[address] [address] Nitrite,Ur Negative Normal NEG [facility] Comment on above: Performed By: #### U AX ####[address] [address] Turbidity CLEAR Normal CLEAR [facility] Comment on above: Performed By: #### U AX ####[address] [address] Urine, color YELLOW Normal YEL [facility] Comment on above: Performed By: #### U AX ####[address] [address] Urine, glucose presence Negative Normal NEG [facility] Comment on above: Performed By: #### U AX ####[address] [address] Urine, leukocyte esterase presence Negative Normal NEG [facility] Comment on above: Performed By: #### U AX ####[address] [address] Urine, pH 5.5 [pH] Normal 5.0-8.0 [facility] Comment on above: Performed By: #### U AX ####[address] [address] Urine, protein presence Negative Normal NEG [facility] Comment on above: Performed By: #### U AX ####[address] [address] Urine, specific gravity 1.011 Normal 1.000-1.030 [facility] Comment on above: Performed By: #### U AX ####[facility] [facility] [place] [address] Urobilinogen,Ur Normal Normal NORM [facility] Comment on above: Performed By: #### U AX ####[facility] [facility] [place] [address] Vital Signs Date Time Vital Sign Value Performing Clinician Facility 04-08-2023 10:25-0500 Body height 162.56 cm MD Adina Bunch Work Phone: [facility] 04-08-2023 10:25-0500 Body mass index (BMI) [Ratio] 26.7 kg/m2 MD Adina Bunch Work Phone: [facility] 04-08-2023 10:25-0500 Body weight 70.76 kg MD Adina Bunch Work Phone: [facility] 10-16-2019 15:45-0400 BP Diastolic 64 mm[Hg] [facility] , [place] 10-16-2019 15:45-0400 BP Systolic 154 mm[Hg] [facility] [place] 10-16-2019 08:25-0400 Body Temperature 98.01 [degF] [facility], [place] 10-16-2019 08:25-0400 Pulse (Heart Rate) 70 /min [facility], [place] 10-16-2019 08:25-0400 Pulse Oximetry 97 % [facility] , [place] 10-16-2019 08:25-0400 Respiratory Rate 20 /min [facility], [place] 10-16-2019 06:15-0400 BMI (Body Mass Index) 25.51 kg/m2 [facility], [place] 10-16-2019 06:15-0400 Body weight 67.4 kg [facility] , [place] 10-15-2019 15:22-0400 Height 162.6 cm [facility] , [place] 10-13-2019 16:07-0400 Respiratory rate NOT REPORTED [facility] Comment on above: Performed By: #### CDP, CP, LIP, TROPI, LIPRF, GLYHGB #### [facility] [address] [place] [address] [employer] Senior Officer: Brandon Anaya MD 10-13-2019 14:24-0400 Respiratory rate NOT REPORTED [facility] [place] Encounters Encounter Date Encounter Type Care Provider Facility Start: 02-16-[address] [facility] Start: 02-09-2024 Evaluation and manag ement of inpatient [facility] Start: 02-07-2024 Evaluation and manag ement of inpatient [facility] Start: 02-06-2024 Evaluation and manag ement of inpatient [facility] Start: 02-06-2024 Evaluation and manag ement of inpatient SIRISHA MARTHA [facility] Start: 02-04-2024 Evaluation and manag ement of inpatient [facility] Start: 02-03-2024 Evaluation and manag ement of inpatient MARCK [facility] Start: 02-03-2024 Evaluation and manag ement of inpatient [facility] Start: 02-03-2024 Evaluation and manag ement of inpatient [facility] Start: 02-02-2024 [facility] Start: 02-02-2024 Evaluation and manag ement of inpatient AVILA RICHARD [facility] Start: 02-02-2024 Evaluation and manag ement of inpatient [facility] Start: 02-02-2024 End: 02-12-2024 Evaluation and management of inpatient TIFFANY JAMIL [facility] Start: 02-01-2024 End: 02-01-2024 [facility]: 01-29-2024 Evaluation and manag ement of inpatient AP CHRISTIANSENNCER [facility] Start: 01-28-2024 Evaluation and manag ement of inpatient RYNE TURNER [facility] Start: 01-27-2024 Emergency department patient visit BONIFACIO HERNANDEZ [facility] Start: 01-27-2024 Emergency department patient visit BONIFACIO HERNANDEZ [facility] Start: 01-27-2024 End: 01-31-2024 Evaluation and management of inpatient SCARLETT SHARPE [facility] Start: 01-27-2024 ambulatory YOVANY MONTALVO [facility] Start: 01-16-2024 End: 01-16-2024 Bamboo flowsheet Lexy Northeim PA Work Phone: [facility] Start: 01-16-2024 End: 01-16-2024 Bamboo flowsheet Lexy Northeim PA Work Phone: [facility] Start: 01-16-2024 End: 01-16-2024 Office outpatient visit 25 minutes Lexy Northeim PA Work Phone: [facility] Comment on above: Other atopic dermati tis (Primary Dx) Start: 01-16-2024 End: 01-16-2024 ambulatory LEXY NORTHEIM Not Available Start: 12-31-2023 End: 12-31-2023 ambulatory DIPTI HUDSON [facility] Start: 12-05-2023 Evaluation and manag ement of inpatient DIXIE NELL [facility] Start: 12-05-2023 End: 12-06-2023 Evaluation and management of inpatient DANIKA ESTRADA [facility] Start: 12-02-2023 End: 12-02-2023 ambulatory CAMERON YOUNG [facility] Start: 04-24-2023 End: 04-24-2023 ambulatory Anju Lees Facility:[facility] Start: 04-17-2023 End: 04-17-2023 ambulatory Adina Bunch Facility:[facility] Start: 04-17-2023 End: 04-17-2023 Patient encounter procedure MD Adina Bunch Work Phone: [facility] Work Phone: Start: 04-17-2023 End: 04-17-2023 ambulatory MD Adina Bunch Work Phone: [facility] Work Phone: Start: 04-08-2023 End: 04-08-2023 ambulatory MD Adina Bunch Work Phone: [facility] Work Phone: Start: 04-08-2023 End: 04-08-2023 Patient encounter procedure MD Adina Bunch Work Phone: [facility] Work Phone: Start: 04-08-2023 End: 04-08-2023 ambulatory MD Adina Bunch Work Phone: [facility] Work Phone: Start: 04-08-2023 End: 04-08-2023 Patient encounter procedure MD Adina Bunch Work Phone: [facility] Start: 02-13-2023 End: 02-13-2023 ambulatory DENISHA KELLY Not Available Start: 06-17-[address] ADINA BUNCH . Facili ty:[facility] Start: 05-29-2022 End: 05-30-[address] ADINA BUNCH . Facility:[facility] Start: 03-07-2022 End: 04-20-[address] ADINA BUNCH . Facility:[facility] Start: 02-06-2022 End: 02-06-[address] ADINA BUNCH . Facility:[facility] Start: 11-16-[address] ADINA BUNCH . Facili ty:[facility] Start: 10-09-2019 End: 10-16-2019 Evaluation and management of inpatient DUGLAS [facility] Start: 10-09-2019 End: 10-16-2019 Evaluation and management of inpatient Yoon Mercado Work Phone: [email or web address] CAR 2 Comment on above: Abdominal aortic ane urysm (AAA) without rupture (HCC) (Primary Dx); Acute low back pain, unspecified back pain laterality, unspecified whether sciatica present; Vertigo; Nausea and vomiting, intractability of vomiting not specified, unspecified vomiting type; Hypertensive urgency Start: 06-27-2017 End: 06-29-2017 Evaluation and management of inpatient ADINA BUNCH [facility] Procedures Date Procedure Procedure Detail Performing Clinician Start: 02-16-2024 Follow-up visit CAMERON RENEE Start: 01-27-2024 Follow-up visit CAMERON RENEE Start: 12-31-2023 Follow-up visit CAMERON RENEE Start: 12-02-2023 Follow-up visit CAMERON RENEE Start: 04-08-2023 Plain X-ray of right hand [...] Start: 10-14-2019 Comprehensive metabo lic panel DUGLAS JDUIE Start: 10-14-2019 Glucose blood reagen t strip [...] Phone: Start: 10-13-2019 Assay of ammonia Frandy Mares Work Phone: Start: 10-13-2019 Blood gases any combination ph pco2 po2 co2 hco3 Matt Mares Work Phone: Start: 10-13-2019 Antibody mycoplsm Venitaamanda Kendrick Work Phone: Start: 10-13-2019 Gluc bld [...] Start: 10-13-2019 Assay of magnesium Mura sophya Porandla Work Phone: Start: 10-13-2019 BASIC METABOLIC [...] Urnls dip stick/tabl et reagent auto microscopy Pranavjostin Morris Work Phone: Start: 10-12-2019 Glucose blood [...] Dup-scan artl braydon abdl/pel/scrot&/rpr orgn com Denys Morris Work Phone: Start: 10-12-2019 Assay of aldosterone RA NVIR JUDIE Start: 10-12-2019 Assay of magnesium RANV IR JUDIE Start: 10-12-2019 Assay of renin DUGLAS R ATHORE Start: 10-12-2019 Blood count complete auto&auto difrntl wbc DUGLAS JUDIE Start: 10-12-2019 Comprehensive metabo lic panel DUGLAS JUDIE Start: 10-12-2019 Glucose blood reagen t strip Duglas S Judie Work Phone: Start: 10-12-2019 Assay of aldosterone Mu ralikrishna Yonathanandla Work Phone: Start: 10-12-2019 Assay of magnesium Mura likrisrocioa Porandla Work Phone: Start: 10-12-2019 Assay of renin Pranavalichao sylvester Porandla Work Phone: Start: 10-12-2019 BASIC METABOLIC PANE L W/ REFLEX TO MG FOR LOW K Denys Porandjovita Work Phone: Start: 10-12-2019 Blood count complete auto&auto difrntl wbc Denys Porandjovita Work Phone: Start: 10-12-2019 Gluc bld gluc [...] S Judie Work Phone: Start: 10-11-2019 Metanephrines Muraliolimpia aceves Pormegan Work Phone: Start: 10-11-2019 Mri brain brain [...] sacrum & coccy x minimum 2 views Matt Casonara Work Phone: Start: 10-10-2019 Radex spine lumbosac ral 2/3 views Matt Mares Work Phone: Start: 10-10-2019 Glucose blood reagen [...] Start: 10-10-2019 Ct angiography neck w/contrast/noncontrast Alfonso Erazo Work Phone: Start: 10-10-2019 Glucose blood [...] JUDIE Start: 10-10-2019 Assay of magnesium Mura farhan Morris Work Phone: Start: 10-10-2019 Assay of thyroid stimulating hormone tsh Denys Morris Work Phone: Start: 10-10-2019 BASIC METABOLIC PANE L W/ REFLEX TO MG FOR LOW K Ivonnena Porandla Work Phone: Start: 10-10-2019 Blood count complete auto&auto difrntl wbc Denys Pormegan Work Phone: Start: 10-10-2019 Gluc bld gluc [...] 10-09-2019 Radiologic exam abdo men 1 view Muralikrishna Porandla Work Phone: Start: 10-09-2019 Glucose blood reagen [...] Urnls dip stick/tabl et reagent auto microscopy Pranavtheresachaohiginio Morris Work Phone: Start: 10-09-2019 Urnls dip stick/tabl et rgnt auto w/o microscopy Denys Morris Work Phone: Start: 10-09-2019 PATIENT STATUS (FROM ED OR OR/PROCEDURAL) DUGLAS JUDIE Start: 10-09-2019 IP CONSULT TO [facility] DUGLAS JUDIE Start: 10-09-2019 Ct [...] Start: 10-09-2019 Ct thorax w/contrast material Joel Lux Melton Work Phone: Start: 10-09-2019 Assay of troponin quantitative Joel Lux Melton Work Phone: Start: 10-09-2019 Ketone bodies serum quantitative Joel J Melton Work Phone: Start: 10-09-2019 IP CONSULT TO [facility] DUGLAS JUDIE Start: 10-09-2019 COVID-19 Elizabeth camacho Work Phone: Start: 10-09-2019 Ecg routine ecg w/le ast 12 lds trcg only w/o i&r oJel Lux Melton Work Phone: Start: 10-09-2019 EKG REPORT Hpf Scanni ng Start: 10-09-2019 Assay of lipase Joel J Melton Work Phone: Start: 10-09-2019 Assay of troponin quantitative Joel J Melton Work Phone: Start: 10-09-2019 Blood count complete auto&auto difrntl wbc Joel Lux Melton Work Phone: Start: 10-09-2019 Comprehensive metabo lic panel Joel Lux Melton Work Phone: Start: 10-09-2019 Hemoglobin glycosyla lovely a1c Joel Lux Melton Work Phone: Start: 10-09-2019 Lipid panel Joel youngblood Work Phone: Start: 06-29-2017 DISCHARGE PATIENT DELORES BUNCH Start: 06-29-2017 INITIATE OXYGEN THER APY PROTOCOL ADINA BUNCH Start: 06-29-2017 BASIC METABOLIC PANE L W/ [...] HO Y Start: 06-28-2017 IP CONSULT TO [facility] ADINA BUNCH Start: 06-28-2017 EKG 12-LEAD ADINA FONTAINE Y Start: 06-28-2017 BASIC METABOLIC PANEL D NELLY BUNCH Start: 06-28-2017 CBC WITH AUTO DIFFERENTIAL ADINA BUNCH Start: 06-28-2017 TROPONIN ADINA FONTAINE Y Start: 06-28-2017 TSH WITH REFLEX ADINA BUNCH Start: 06-28-2017 Radiologic exam ches t 2 views ADINA BUNCH Start: 06-27-2017 URINE RT REFLEX TO CULTURE ADINA BUNCH Start: 06-27-2017 INSERT PERIPHERAL IV DO UGAPOLLO BUNCH Plan of Treatment Date Care Activity Detail Author Start: 02-06-2024 End: 02-06-2024 Patient encounter procedure 02/06/2024 1:10 PM EST Office Visit [facility] [address] [place] [phone] Lexy Ta PA [address] [place] [phone] [facility] Start: 01-16-2024 End: 01-16-2024 Patient encounter procedure 01/16/2024 11:50 AM EST Office Visit [facility] [address] [place] [phone] Lexy Ta PA [address] [place] [phone] Arrived [facility] Comment on above: Arrived Start: 10-26-2023 Influenza vaccination Influenza Vacc ine (#1) [facility] Start: 04-08-2023 Plain X-ray of right hand XR hand RT min 3V* [facility] Start: 04-08-2023 XR Hand - right GE 3 Views [facility] Start: 11-18-2020 Pneumococcal Vaccine : 65+ Years (2 of 2 - PCV) Pneumococcal Vaccine: 65+ Years (2 of 2 - PCV) [facility] Start: 10-14-2020 Creatinine measurement Creatinine mo [facility], [place] Start: 10-14-2020 Potassium monitoring Potassium monit oring [place], [place] Start: 10-26-2019 Influenza vaccination Flu vaccine (# 1) [place] Start: 08-16-2018 Annual Wellness Visi t (AWV) Annual Wellness Visit (AWV) [place] Start: 05-23-2008 Pneumococcal 65+ yea rs Vaccine (1 of 1 - PPSV23) Pneumococcal 65+ years Vaccine (1 of 1 - PPSV23) [place] Start: 05-23-1998 Screening for osteoporosis DEXA (modify frequency per FRAX score) [place] Start: 05-23-1993 Shingles Vaccine (1 of 2) Shingles Vaccine (1 of 2) [place] Start: 05-23-1962 DTaP/Tdap/Td vaccine (1 - Tdap) DTaP/Tdap/Td vaccine (1 - Tdap) [place] End: 10-11-2019 ALBUMIN, CSF ALBUMIN, CSF Lab Routine One Time for 1 Occurrences starting 10/11/2019 until 10/11/2019 [place] Comment on above: One Time for 1 Occur rences starting 10/11/2019 until 10/11/2019 Basic Metabolic Pane l w/ Reflex to MG Basic Metabolic Panel w/ Reflex to MG Lab Routine Daily until discontinued starting 10/10/2019, 7 completed [place] Comment on above: Daily until disconti nued starting 10/10/2019, 7 completed CBC auto differential CBC auto d ifferential Lab Routine Daily until discontinued starting 10/10/2019, 7 completed [place] Comment on above: Daily until disconti nued starting 10/10/2019, 7 completed Culture, Blood 1 [place], [place] End: 10-16-2019 Culture, Urine Culture, Urine Microbiology Routine One Time for 1 Occurrences starting 10/16/2019 until 10/16/2019 [place] Comment on above: One Time for 1 Occur rences starting 10/16/2019 until 10/16/2019 Culture, Urine Culture, Urine Microbiology [employer] Label Print 10/16/2019 1:08 PM EDT [place] Nebulizer therapy HHN Treatment Respiratory Care Routine As Needed until discontinued starting 10/11/2019 [facility], [place] Comment on above: As Needed until disc ontinued starting 10/11/2019 Oxygen therapy [Mini [facility] Data Set] Initiate Oxygen Therapy Protocol Respiratory Care Routine Daily until discontinued starting 10/09/2019 [facility], [place] Comment on above: Daily until disconti nued starting 10/09/2019 POCT Glucose [facility] [place] Comment on above: As Needed until disc ontinued starting 10/09/2019 4X Daily (AC & HS) u ntil discontinued starting 10/09/2019 Immunizations Immunization Date Immunization Notes Care Provider Fa cili 12-20-2020 COVID-19 mRNA-1273 (Moderna) MD Adina Bunch Work Phone: [facility] 04-21-2020 COVID-19 mRNA-1273 (Moderna) MD Adina Bunch Work Phone: [facility] 03-24-2020 COVID-19 mRNA-1273 (Moderna) MD Adina Bunch Work Phone: [facility] 11-29-2019 influenza virus vaccine, unspecified formulation Lexy HARRIS Work Phone: [facility] Payers Date Payer Category Payer Medicare (Managed Care) [facility] MEDICARE [id number] 2022 Medicare [id number] 2014 Medicare [id number] 1961 Medicare [id number] 1959 Medicare [id number] 1959 Self-pay 1945 Unknown [id number] 1943 Unknown [id number]. 593 1945 Unknown [id number]. 593 1943 Unknown [id number]. 593 1943 Unknown [id number] [id number]. 593 1943 Unknown [id number] [id number]. 593 1943 Unknown [id number] [id number]. 1259 1943 Unknown [id number] [id number]. 1259 1943 Unknown [id number] [id number]. 1259 Unknown [id number] [id number]. 531 Unknown [id number]. 531 Unknown [id number]. 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 (finding) [place] Start: 1945 Sex Assigned At Not on file M [place], [place] Exposure to SARS-CoV -2 (event) Not sure [place] Start: 1945 Sex Assigned At Female F [facility] Start: 08-23-2022 End: 04-17-2023 Tobacco smoking status NHIS Ex-smoker (finding) [facility] History of tobacco use Current smoker [facility] History of tobacco use Cigarette [facility]oker [facility] Start: 04-17-2023 End: 01-16-2024 History of Social function [facility] Start: 04-17-2023 End: 01-16-2024 Tobacco use panel [facility] Start: 08-23-2022 Tobacco Comment Last smoked: 1 0-15 years [facility] Clinical Notes 05-18-2020 to 02-16-2024 KIMBERLY De Jesus - 01/16/2024 11:50 AM EST Note Date & Type Note Facility 02-16-2024 Note [facility] 02-12-2024 Note [facility] 02-12-2024 Note [facility] 02-12-2024 Note Occupational Therapy Name: Zachary Maynard Date of : 1945 Today's Date: 02/12/24 Pt is unable to be seen for therapy at this time secondary to Discharging !@ 1030 Check No Charge Time attempted: 0957 [facility] 02-11-2024 Note [facility] 02-11-2024 Note [facility] 02-11-2024 Note [facility] 02-11-2024 Note [facility] 02-10-2024 Note [facility] 02-10-2024 Note [facility] 02-10-2024 Note [facility] 02-10-2024 Note [facility] 02-10-2024 Note [facility] 02-10-2024 Note [facility] 02-10-2024 Note [facility] 02-10-2024 Note [facility] 02-09-2024 Note [facility] 02-09-2024 Note [facility] 02-09-2024 [facility] [facility] 02-09-2024 Note [facility] 02-08-2024 Note [facility] 02-08-2024 Note [facility] 02-08-2024 Note [facility] 02-08-2024 Note [facility] 02-08-2024 Note [facility] 02-07-2024 Note [facility] 02-07-2024 Note [facility] 02-07-2024 Note [facility] 02-06-2024 Note [facility] 02-06-2024 Note [facility] 02-06-2024 Note [facility] 02-06-2024 Note [facility] 02-06-2024 Note [facility] 02-06-2024 Note [facility] 02-05-2024 Note [facility] 02-05-2024 Note [facility] 02-05-2024 Note [facility] 02-05-2024 Note [facility] 02-05-2024 Note [facility] 02-04-2024 Note [facility] 02-04-2024 Note [facility] 02-04-2024 Note Brief follow up with RN. No family at bedside. Patient is sleeping. Patient is scheduled for angiogram today. Once procedure/test completed and patient medically cleared therapy will return for eval and recommendations. SW following. [facility] 02-04-2024 Note [facility] 02-04-2024 Note [facility] 02-04-2024 Note [facility] 02-04-2024 Note [facility] 02-03-2024 Note [facility] 02-03-2024 Note [facility] 02-03-2024 Note [facility] 02-03-2024 Note Occupational Therapy Name: Zachary Maynard Date of : 1945 Today's Date: 02/03/24 Pt is unable to be seen for therapy at this time secondary to Medically unstable today per nsg . Check No Charge Time attempted: 1113 [facility] 02-03-2024 Note [facility] 02-03-2024 Note [facility] 02-03-2024 Note [facility] 02-03-2024 Note [facility] 02-02-2024 Note Case was discussed w ith the MONROE on 02/02/2024. I agree with the history, physical, assessment, and plan of care. I discussed the findings and therapeutic plan. I agree with the documentation, except for any updates below. Dixie Van MD [facility] 02-02-2024 Note [facility] 01-31-2024 Note [facility] 01-31-2024 Note [facility] 01-31-2024 Note [facility] 01-30-2024 Note [facility] 01-30-2024 Note [facility] 01-30-2024 Note [facility] 01-30-2024 Note [facility] 01-30-2024 Note [facility] 01-30-2024 Note [facility] 01-29-2024 Note [facility] 01-29-2024 Note [facility] 01-29-2024 Note [facility] 01-29-2024 Note [facility] 01-29-2024 Note [facility] 01-28-2024 Note 1615: PEDAL PULSES: PRE PROCEDURE RIGHT: PT/DOPPLER; DP/DOPPLER LEFT: PT/DOPPLER; DP/DOPPLER [facility] 01-28-2024 Note 1701: FAMILY UPDATED ON PROGRESS OF PROCEDURE [facility] 01-28-2024 Note [facility] 01-28-2024 Note [facility] 01-28-2024 Note Peripheral IV Date/Time: 01/28/2024 4:39 PM Inserted by: Rick Brown MD Placement Needle size: 14 G Laterality: right Location: hand Local anesthetic: none Site prep: alcohol Technique: anatomical landmarks Attempts: 2 [facility] 01-28-2024 Note [facility] 01-28-2024 Note [facility] 01-28-2024 Note [facility] 01-28-2024 Note Physical Therapy Planned endovascular AAA repair today per RN. Will defer evaluation at this time and follow up post-operatively as appropriate. Peter Cartagena PT, DPT [facility] 01-28-2024 Note Occupational Therapy Name: Zachary Maynard Date of : 1945 Today's Date: 01/28/24 Pt is unable to be seen for therapy at this time secondary to planned AAA sx today/nsg request to hold . Check No Charge Time attempted: 730 [facility] 01-27-2024 Note Case was discussed w ith the [facility]ROE on 01/27/2024. I agree with the history, physical, assessment, and plan of care. I discussed the findings and therapeutic plan. I agree with the documentation, except for any updates below. Scarlett Sharpe MD [facility] 01-27-2024 Note [facility] 01-27-2024 Note [facility] 01-16-2024 History of Present illness Narrative Images from the original note were not included. Rash Location: generalized Duration: weeks Severity: moderate Quality: itchy Current treatments: Gold Domínguez itch relief cream. Works for about 1 hour then the itch starts back up. Patient unable to sleep longer than a couple hours at a time. Established patient of Curry Red MD All pertinent medical history, medications, and allergies were reviewed. General Exam: alert, oriented to person, place, and time, normal affect, well appearing Unaccompanied A focused exam completed based on patient reported problems, see below: 1. Other atopic dermatitis Scaly erythematous plaques +/- dyspigmentation, lichenification, excoriations. Improved since last visit but not at treatment goal. Flaring today. BSA 30%, IGA 3 Discussed that atopic dermatitis is a chronic condition that can be controlled but not cured. Encouraged daily moisturizing and gentle cleansers to prevent flares. Patient was clear on Dupixent but could not tolerate the joint pain. She is in a significant flare today. Will have patient start a daily Brenda for daytime itch and and one Hydroxyzine 25 mg at bedtime to try to help her rest at night. Discussed that it id appropriate for her to use her current dose of PRN prednisone 10 mg consistently for 7 days, and then go back to PRN for her joint pain. Will also send Triamcinolone cream 0.1% for the patient to use bid as needed in flared areas. Avoid the face and intertriginous regions. Will submit for [employer] coverage. Patient understands that this may take a couple weeks to get approved. Also, discussed that she may experience the joint pain again. If this occurs, she should stop medication. Information given to biologics nurse. No labs needed. Patient advised we will be in touch about coverage, etc. Dosing will be loading dose of 600 mg given by two 300 mg injections into different sites, followed by 300 mg injection every 2 weeks. Return to clinic in 4-6 weeks. fexofenadine (Brenda) 180 MG tablet Take 1 tablet daily, by mouth, 30 days hydrOXYzine HCl (Atarax) 25 MG tablet Take 1 tablet, by mouth, as needed for itching at bedtime, 30 day supply. triamcinolone (Kenalog) 0.1 % cream Apply to affected areas, up to twice a day when flared, do not use one the face, groin, or underarms, 30 day supply Related Medications Dupixent 300 MG/2ML injection Inject 2 mL (300 mg) under the skin every 14 (fourteen) days. Next Visit: 4-6 weeks documented in this encounter [facility] 12-31-2023 Note [facility] 12-05-2023 Note [facility] 12-02-2023 Note ami [facility] 12-02-2023 Note [facility] 06-15-2020 Note [id number]:127 [facility] 06-15-2020 Note Cystoscopy with Uret hral Dilation [...] you have a fever over 100 degrees [facility] 05-18-2020 Note [id number]:127 [facility] 05-18-2020 Note Cystoscopy with Uret hral Dilation [...] you have a fever over 100 degrees [facility] Evaluation note Diagnosis Onset Date Trigger finger, right middle finger acute Trigger finger, right ring finger acute [facility] Work Phone: Evaluation note* Diagnosis Other atopic dermatitis- Primary documented in this encounter [facility] Summary Purpose Family History No Family History Records Found Relationship Condition Age at Onset Recorded Date/T janki father Malignant neoplasm of lung Unknown Not Specified Myocardial infarction Unknown Advance Directives No Advanced Directives Records FoundDocuments on File Type Date Recorded 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 ACP-Advance Directive ACP-Power of Buyer Intern Latest Code Status on File Code Status [...] Contact Information Primary Emergency Contact: Deep Maynard [facility] Relation: Spouse Past Surgical History: Past [...] Assisted Dressing Assisted Toileting Assisted Feeding Assisted Line Servicer Independent Med Delivery whole Wound Care Documentation [...] NOT a DME order): n/a Other Treatments: nursing home, home health aide services Patient's personal belongings (please select all that are sent with patient): patient has all belongings RN SIGNATURE: CASE MANAGEMENT/SOCIAL WORK SECTION Inpatient Status Date: 10-09-2019 Readmission Risk Assessment Score: Readmission Risk Risk of Unplanned Readmission: 12 Discharging to Facility/ Agency Name: [facility] Address: Phone: Fax: Dialysis Facility (if applicable) Name: Address: Dialysis Schedule: Phone: Fax: Business Continuity Coordinator/Package Maker signature: EDT ICIAN SECTION Prognosis: Fair Condition [...] size monitoring with PCP F/u urologist at [place] in 1 week for lowe and void trial Take docusate 100 mg daily and miralax 17 g daily. documented in this encounter History of Present Illness * Tami Ni RN - 10/16/2019 5:51 PM EDT Slash Trimmer discharged patient @ 1745 by wheelchair off unit with . Slash Trimmer went over all discharge paperwork and patient denies any further questions or concerns at this time. Patient has all personal belongings and meds to beds delivered bedside. Patient also was discharged with a lowe catheterplaced 10/16/2019 * Willie Garcia APRN - [place] - 10/16/2019 5:39 PM EDT No further [...] who was admitted as a transfer from [facility] 10/09/2019 where she presented with gradually [...] to ensure the accuracy of this automated machine slat basket maker, some errors in machine slat basket maker may have occurred. * Michelle Pelletier MD - 10/16/2019 11:07 AM EDT [facility] Internal Medicine Teaching Residency Program Inpatient Daily Progress Note Patient: Zachary Maynard Date of : 1945 Acct: [id number] Room: Admit date: 10/09/2019 Today's date: 10/16/19 [...] of COPD, primary hypertension was transferred from [facility] for management of infrarenal abdominal aortic aneurysm and for vascular consultation. States she started having lower back pain since . Describes the pain as constant, sharp, 10out of 10 in intensity associated with nausea. Patient went to the emergency department at [facility] to have hypertensive emergency with systolics above 200 and d-dimer was elevated. CT abdomen was done which showed 3.5 infrarenal aortic aneurysm, started on Cardene drip and pain medications we re given. Patient was transferred to [facility] found to be hypoxic in upper [...] Q4H PRN hydrALAZINE, 10 mg, Q6H PRN nlytpcuvtk-llisdamdveqfr-dszgvirh, 1 tablet, Q4H PRN sodium chloride flush, [...] Dwayne Hanson MD Internal Medicine Resident, PGY-1 [facility]; [place], [place] 10/16/2019, 11:07 AM I have discussed [...] 9:31 AM EDT [facility] - Progress Note Today's Date and [...] culture. Medical Decision Making/Summary/Discussion:10/16/2019 Infection Control Recommendations [place] Precautions Antimicrobial Stewardship Recommendations Discontinuation of therapy [...] of . INITIAL HISTORY: Patient transferred from [facility] on 10-09-19 because of low back pain and findings of an infrarenal abdominal aortic aneurysm. Developed onset of back pain on 10-07-19, associated with nausea. She was evaluated at [facility] and found to have a hypertensive emergency with systolic pressures over [address] showed a 3.5 cm infrarenal aortic aneurysm. Her BP was controlled with Cardene drip and the patient was transferred to [facility]. At [facility] patient [...] file Gets together: Not on file Attends lutheran service: Not on file Active member of [...] Initial FINDINGS: CTA NECK: AORTIC ARCH/ARCH VESSELS: Hfwx-ju-geoxhtff atherosclerotic plaque at the arch arch and [...] No acute pulmonary process. Emphysema. Medical Decision Bsqrgq-Mmbiugbp-Lutba: 10/15/2019 12:10 AM - PrietoBlanco Incoming Lab Results From At The Pool Specimen Information: Blood Component Collected Lab Specimen Description 10/12/2019 2:17 PM DoublePositive .BLOOD Special Requests 10/12/2019 2:17 PM Rent The [employer] back lt arm 3ml Culture 10/12/2019 2:17 PM DoublePositive NO GROWTH 3 DAYS Medical Decision Making-Other: Note: Labs, medications, radiologic studies were reviewed with personal review of films Large amounts of data were reviewed Discussed with nursing Staff, assortment planner Infection Control and Prevention measures reviewed [...] orders as documented by the resident/ student. lAfonso Kendrick MD. Pager: - Office: * Sang Patel RN - 10/16/2019 6:15 AM EDT Slash Trimmer bladder scanned patient and bladder scan shows 554 mL, rewriter straight cath patient and was only able [...] loss Fluid Accumulation: 1 - Mild Extremities Stave Cutting Supervisor Strength: Not Performed Estimated Daily Nutrient Needs: Energy (kcal): 1.3-1.4 ~> 0232-9495 kcals/d; Weight Used for Energy Requirements: Admission Protein (g): 1.2-1.4 ~> 65-76 gms/d; Weight Used for Protein Requirements: Bailey Nutrition Related Findings: Na 131 Wounds: None Current Nutrition Therapies: DIET GENERAL; Anthropometric Measures: Height: 5' 4 (162.6 cm) Current Body Weight: 154 lb (69.9 kg) Admission Body Weight: 154 lb (69.9 kg) Usual Body Weight: 160 lb (72.6 kg)(per pt's ) Bailey Body Weight: 120 lbs; % Bailey Body Weight 128.3 % BMI: 26.4 BMI [...] Discharge Planning: Too soon to determine Contact: [phone] * Dwayne Hanson MD - 10/15/2019 3:09 PM EDT [facility] Internal Medicine Teaching Residency Program Inpatient Daily Progress Note Patient: Zachary Maynard Date of : 1945 Acct: [id number] Room: Admit date: 10/09/2019 Today's date: 10/15/19 [...] of COPD, primary hypertension was transferred from [facility] for management of infrarenal abdominal aortic aneurysm and for vascular consultation. States she started having lower back pain since . Describes the pain as constant, sharp, 10out of 10 in intensity associated with nausea. Patient went to the emergency department at [facility] to have hypertensive emergency with systolics above 200 and d-dimer was elevated. CT abdomen was done which showed 3.5 infrarenal aortic aneurysm, started on Cardene drip and pain medications we re given. Patient was transferred to [facility] found to be hypoxic in upper [...] Q4H PRN hydrALAZINE, 10 mg, Q6H PRN ngpynwgsrt-beslbdeekqxci-jvqyyzgh, 1 tablet, Q4H PRN sodium chloride flush, [...] Dwayne Hanson MD Internal Medicine Resident, PGY-1 [facility]; [place], [place] 10/15/2019, 3:09 PM Associated attestation - [...] Electronically signed by Michelle Pelletier MD * LaurelWinifred murillo - 10/15/2019 3:09 PM EDT Occupational Therapy [facility] Occupational Therapy Not Seen Note DATE: [...] 10/15/2019 1:55 PM EDT Physical Therapy Facility/Department: [facility] 2 Daily Treatment Note NAME: Zachary Maynard [...] place: No Restraints: all rail up when GLASS LAMINATING OPERATOR left, okay with pt Therapy Time Individual Concurrent Group Co-treatment Time In 1326 Time Out 1342 Minutes 16 Timed Code Treatment Minutes: 16 Minutes Sho Tierney GLASS LAMINATING OPERATOR * Willie Garcia APRN - [place] - 10/15/2019 10:38 AM EDT [...] who was admitted as a transfer from [facility] 10/09/2019 where she presented with gradually [...] to ensure the accuracy of this automated machine slat basket maker, some errors in machine slat basket maker may have occurred. * Sailaja Durán RN - 10/15/2019 9:00 AM EDT Pt straight cathed for 850 cc clear yellow urine. Tolerated well. Will continue to monitor. * Alfonso Kendrick MD - 10/15/2019 8:38 AM EDT [facility] - Progress Note Today's Date and [...] antibiotics Medical Decision Making/Summary/Discussion:10/15/2019 Infection Control Recommendations [place] Precautions Antimicrobial Stewardship Recommendations Discontinuation of therapy [...] of . INITIAL HISTORY: Patient transferred from [facility] on 10-09-19 because of low back pain and findings of an infrarenal abdominal aortic aneurysm. Developed onset of back pain on 10-07-19, associated with nausea. She was evaluated at [facility] and found to have a hypertensive emergency with systolic pressures over [address] showed a 3.5 cm infrarenal aortic aneurysm. Her BP was controlled with Cardene drip and the patient was transferred to [facility]. At [facility] patient had signs of hypoxia, and an [...] file Gets together: Not on file Attends lutheran service: Not on file Active member of [...] Initial FINDINGS: CTA NECK: AORTIC ARCH/ARCH VESSELS: Auwn-rw-cibxskfz atherosclerotic plaque at the arch arch and [...] No acute pulmonary process. Emphysema. Medical Decision Xiewre-Zmlashye-Ywfcd: 10/15/2019 12:10 AM - Prieto, Blanco Incoming Lab Results From At The Pool Specimen Information: Blood Component Collected Lab Specimen Description 10/12/2019 2:17 PM DoublePositive .BLOOD Special Requests 10/12/2019 2:17 PM DoublePositive back lt arm 3ml Culture 10/12/2019 2:17 PM DoublePositive NO GROWTH 3 DAYS Medical Decision Making-Other: Note: Labs, medications, radiologic studies were reviewed with personal review of films Large amounts of data were reviewed Discussed with nursing Staff, assortment planner Infection Control and Prevention measures reviewed [...] Hanson MD - 10/14/2019 1:29 PM EDT [facility] Internal Medicine Teaching Residency Program Inpatient Daily Progress Note Patient: Zachary Maynard Date of : 1945 Acct: [id number] Room: Admit date: 10/09/2019 Today's date: 10/14/19 [...] of COPD, primary hypertension was transferred from [facility] for management of infrarenal abdominal aortic aneurysm and for vascular consultation. States she started having lower back pain since . Describes the pain as constant, sharp, 10out of 10 in intensity associated with nausea. Patient went to the emergency department at [facility] to have hypertensive emergency with systolics above 200 and d-dimer was elevated. CT abdomen was done which showed 3.5 infrarenal aortic aneurysm, started on Cardene drip and pain medications we re given. Patient was transferred to [facility] found to be hypoxic in upper [...] Q4H PRN hydrALAZINE, 10 mg, Q6H PRN loppbfrpcv-zxvggjgdeqpqa-zcuiwfpb, 1 tablet, Q4H PRN sodium chloride flush, [...] Dwayne Hanson MD Internal Medicine Resident, PGY-1 [facility]; [place], [place] 10/14/2019, 1:29 PM Associated attestation - [...] signed by Michelle Pelletier MD * Jose WillieFLAQUITO - UNDERWRITER SOLICITATION DIRECTOR - 10/14/2019 11:22 AM EDT Neurology Nurse [...] who was admitted as a transfer from [facility] 10/09/2019 where she presented with gradually [...] to ensure the accuracy of this automated machine slat basket maker, some errors in machine slat basket maker may have occurred. * Alfonso Kendrick MD - 10/14/2019 10:10 AM EDT [facility] - Progress Note Today's Date and [...] antibiotics Medical Decision Making/Summary/Discussion:10/14/2019 Infection Control Recommendations [place] Precautions Antimicrobial Stewardship Recommendations Discontinuation of therapy [...] of . INITIAL HISTORY: Patient transferred from [facility] on 10-09-19 because of low back pain and findings of an infrarenal abdominal aortic aneurysm. Developed onset of back pain on 10-07-19, associated with nausea. She was evaluated at [facility] and found to have a hypertensive emergency with systolic pressures over [address] showed a 3.5 cm infrarenal aortic aneurysm. Her BP was controlled with Cardene drip and the patient was transferred to [facility]. At [facility] patient [...] file Gets together: Not on file Attends lutheran service: Not on file Active member of [...] Initial FINDINGS: CTA NECK: AORTIC ARCH/ARCH VESSELS: Xkbr-xh-vavkwdaq atherosclerotic plaque at the arch arch and [...] No acute pulmonary process. Emphysema. Medical Decision Lagpkr-Yqnjbbmb-Zpesm: Medical Decision Making-Other: Note: Labs, medications, radiologic studies were reviewed with personal review of films Large amounts of data were reviewed Discussed with nursing Staff, assortment planner Infection Control and Prevention measures reviewed [...] Ferris RN - 10/13/2019 10:40 PM EDT Slash Trimmer contacted internal med regarding pt complaining of lower abdominal pain. States she has to void but is unable to. Bladder scanned her just now and >999. New order for one time straight cath. Straight cath completed at 2315. 900ml clear, yellow urine out with 63ml residual. Will continue to monitor. 0430- Slash Trimmer contacted internal med regarding pt unable to [...] 10/13/2019 4:16 PM EDT Physical Therapy Facility/Department: [facility] 2 Daily Treatment Note NAME: Zachary Maynard [...] Code Treatment Minutes: 17 Minutes Linda Adhikari GLASS LAMINATING OPERATOR * Carlene Potter RN - 10/13/2019 1:09 PM EDT Neuro perfect served: pt. is very drowsy and still having BURDEN. IM team wanted me to ask you to re evaluate pt. to get yourthoughts on discharge. thanks so much. * Dwayne Hanson MD - 10/13/2019 9:30 AM EDT [facility] Internal Medicine Teaching Residency Program Inpatient Daily Progress Note Patient: Zachary Maynard Date of : 1945 Acct: [id number] Room: Admit date: 10/09/2019 Today's date: 10/13/19 Number of days in the hospital: 4 SUBJECTIVE Admitting Diagnosis: Aneurysm of infrarenal abdominal aorta (HCC) CC: Midline Lower Back Pain Pt examined at bedside. Chart & results reviewed. BP increased overnight - Group Home Paraprofessional Business Development gave Norvasc and started IV Hydralazine early [...] of COPD, primary hypertension was transferred from [facility] for management of infrarenal abdominal aortic aneurysm and for vascular consultation. States she started having lower back pain since . Describes the pain as constant, sharp, 10out of 10 in intensity associated with nausea. Patient went to the emergency department at [facility] to have hypertensive emergency with systolics above 200 and d-dimer was elevated. CT abdomen was done which showed 3.5 infrarenal aortic aneurysm, started on Cardene drip and pain medications we re given. Patient was transferred to [facility] found to be hypoxic in upper [...] Max:101.6 F (38.7 C) In: 1972 Out: 2100 [Urine:2100] Physical Exam: Constitutional: This is a [...] Q4H PRN hydrALAZINE, 10 mg, Q6H PRN vepasluiry-ssuzctwalfobo-zjuxmlqo, 1 tablet, Q4H PRN sodium chloride flush, [...] Dwayne Hanson MD Internal Medicine Resident, PGY-1 [facility]; [place], [place] 10/13/2019, 9:31 AM Associated attestation - [...] problems. * Overall course ; show no oil recovery operator time. Headache is improved Blood pressure improved Ultrasound renal duplex, concerning for unilateral renal artery stenosis Patient very sleepy Has tenderness in lower back X-ray lumbar spine done at the time of admission, concerning for possible fracture Ordering MRI lumbar spine Electronically signed by Michelle Pelletier MD * Viry Morelos, FLAQUITO - UNDERWRITER SOLICITATION DIRECTOR - 10/13/2019 8:44 AM EDT NEUROLOGY INPATIENT [...] negative for acute changes -IV Depacon 500mg W8eteac x3 doses -Continued blood pressure management as [...] to ensure the accuracy of this automated machine slat basket maker, some errors in machine slat basket maker may have occurred. * Alfonso Kendrick MD - 10/13/2019 7:57 AM EDT [facility] - Progress Note Today's Date and Time: 10/13/2019, 7:57 AM Impression : Fever, etiology to be determined Intermittent Headaches, most likely side effect of the various medications being given for control of HTN. No apparent meningitis Low back pain Aneurysm infrarenal abdominal aorta Centrilobular emphysema Allergy to quinolones, sulfa Recommendations: Monitor off antibiotics Medical Decision Making/Summary/Discussion:10/13/2019 Infection Control Recommendations [place] Precautions Antimicrobial Stewardship Recommendations Discontinuation of therapy [...] of . INITIAL HISTORY: Patient transferred from [facility] on 10-09-19 because of low back pain and findings of an infrarenal abdominal aortic aneurysm. Developed onset of back pain on 10-07-19, associated with nausea. She was evaluated at [facility] and found to have a hypertensive emergency with systolic pressures over [address] showed a 3.5 cm infrarenal aortic aneurysm. Her BP was controlled with Cardene drip and the patient was transferred to [facility]. At [facility] patient [...] file Gets together: Not on file Attends lutheran service: Not on file Active member of [...] Initial FINDINGS: CTA NECK: AORTIC ARCH/ARCH VESSELS: Uafb-sn-ltrpdyiq atherosclerotic plaque at the arch arch and [...] No acute pulmonary process. Emphysema. Medical Decision Jwccyx-Mmjgffrr-Cmfhd: Medical Decision Making-Other: Note: Labs, medications, radiologic studies were reviewed with personal review of films Large amounts of data were reviewed Discussed with nursing Staff, assortment planner Infection Control and Prevention measures reviewed All prior entries were reviewed Administer medications as ordered Prognosis: Guarded Discharge planning reviewed Follow up as outpatient. Thank you for allowing us to participate in the care of this patient. Please call with questions. Dickson Hutchinson DPM Pager: - Office: * Divina Ferris RN - 10/13/2019 3:00 AM EDT Slash Trimmer contacted internal med regarding pt blood pressure. [...] administer. New order for PO 10mg norvasc. Slash Trimmer will continue to monitor BP and pain. * Alfonso Kendrick MD - 10/12/2019 4:32 PM EDT [facility] - Progress Note Today's Date and Time: 10/12/2019, 4:32 PM Impression : Fever, etiology to be determined Intermittent Headaches, most likely side effect of the various medications being given for control of HTN. No apparent meningitis Low back pain Aneurysm infrarenal abdominal aorta Centrilobular emphysema Allergy to quinolones, sulfa Recommendations: Monitor off antibiotics Blood, urine cultures Medical Decision Making/Summary/Discussion:10/12/2019 Infection Control Recommendations [place] Precautions Antimicrobial Stewardship Recommendations Discontinuation of therapy [...] of . INITIAL HISTORY: Patient transferred from [facility] on 10-09-19 because of low back pain and findings of an infrarenal abdominal aortic aneurysm. Developed onset of back pain on 10-07-19, associated with nausea. She was evaluated at [facility] and found to have a hypertensive emergency with systolic pressures over [address] showed a 3.5 cm infrarenal aortic aneurysm. Her BP was controlled with Cardene drip and the patient was transferred to [facility]. At [facility] patient had signs of hypoxia, and an [...] file Gets together: Not on file Attends lutheran service: Not on file Active member of [...] Initial FINDINGS: CTA NECK: AORTIC ARCH/ARCH VESSELS: Mlde-ui-cmnsqxra atherosclerotic plaque at the arch arch and [...] No acute pulmonary process. Emphysema. Medical Decision Culckr-Nhfiosyf-Pmwnj: Medical Decision Making-Other: Note: Labs, medications, radiologic studies were reviewed with personal review of films Large amounts of data were reviewed Discussed with nursing Staff, assortment planner Infection Control and Prevention measures reviewed [...] Morris MD - 10/12/2019 1:53 PM EDT [facility] Internal Medicine Teaching Residency Program Inpatient Daily Progress Note Patient: Zachary Maynard Date of : 1945 Acct: [id number] Room: Admit date: 10/09/2019 Today's date: 10/12/19 [...] Q4H PRN hydrALAZINE, 10 mg, Q6H PRN blqopcfblj-lmxsqnilvpsij-dghkdtrq, 1 tablet, Q4H PRN sodium chloride flush, [...] 170 196 196 BMP: Recent Labs 10/10/19 0610/11/19 0529 10/12/19 0636 NA 132* 135 132* [...] Denys Morris MD Internal Medicine Resident, PGY-3 [facility]; [place], [place] 10/12/2019, 1:53 PM * Michelle Pelletier MD - 10/12/2019 1:07 PM EDT Patient seen and examined [place], clonidine discontinued Hypertension controlled Headache improved MRI brain reviewed concerning for meningioma Work-up for secondary hypertension progress * Viry Morelos, ELECTRONIC COMMUNICATIONS TECHNICIAN - UNDERWRITER SOLICITATION DIRECTOR - 10/12/2019 6:51 AM EDT NEUROLOGY INPATIENT [...] tested Data: Lab Results: CBC: Recent Labs 10/10/1962610/11/19 0529 WBC 7.4 6.8 HGB 13.5 13.7 PLT 170 196 BMP: Recent Labs 10/10/1962610/11/19528 NA 132* 135 K 3.5* 3.6* CL [...] to ensure the accuracy of this automated machine slat basket maker, some errors in machine slat basket maker may have occurred. * Divina Ferris RN - 10/11/2019 10:20 PM EDT Slash Trimmer contacted internal med regarding pt headache of 3/10. Pt has IV toradol and reglan ordered. Pt is alert and oriented x2. Slash Trimmer instructed to hold IV toradol and reglan and to administer PRN tylenol for the headache. Will continue to monitor. * Divina Ferris RN - 10/11/2019 10:20 PM EDT Slash Trimmer contacted internal med regarding blood pressure 161/62 and temp of 99.9 after administering scheduled clonidine and lopressor. Pt rating headache 3/10. Slash Trimmer instructed to hold scheduled IV toradol and reglan. 0435- Slash Trimmer contacted internal med regarding BP. Slash Trimmer unable to keep SBP <160. Slash Trimmer administered PRN IV hydralazine at 2315 for a pressure in the 170s, pressure went to the 160s then back up.IV labetalol administered at 0315 for SBP in the low 180s. Pressure still in the 170s. No new orders at this time. Slash Trimmer instructed to continue to monitor. 0530- IV hydralazine and PO fioricet administered. No new orders at this time. Will continue to monitor BP. * Divina Ferris RN - 10/11/2019 10:15 PM EDT Slash Trimmer received call from Dr. Kendrick regarding pt [...] Hanson MD - 10/11/2019 2:46 PM EDT [facility] Internal Medicine Teaching Residency Program Inpatient Daily Progress Note Patient: Zachary Maynard Date of : 1945 Acct: [id number] Room: Admit date: 10/09/2019 Today's date: 10/11/19 [...] of COPD, primary hypertension was transferred from [facility] for management of infrarenal abdominal aortic aneurysm and for vascular consultation. States she started having lower back pain since . Describes the pain as constant, sharp, 10out of 10 in intensity associated with nausea. Patient went to the emergency department at [facility] to have hypertensive emergency with systolics above 200 and d-dimer was elevated. CT abdomen was done which showed 3.5 infrarenal aortic aneurysm, started on Cardene drip and pain medications we re given. Patient was transferred to [facility] found to be hypoxic in upper [...] Q4H PRN hydrALAZINE, 10 mg, Q6H PRN jiehrhgmos-lmpoxoaprnlho-fifkmccd, 1 tablet, Q4H PRN sodium chloride flush, [...] Dwayne Hanson MD Internal Medicine Resident, PGY-1 [facility]; [place], [place] 10/11/2019, 2:46 PM * Michelle Pelletier [...] Ambulation Assistance: Independent Transfer Assistance: Independent Active Log Handling Equipment Operator: Yes Occupation: Retired Additional Comments: pt [...] AM-PAC Inpatient Daily Activity Raw Score: 20 (10/11/191326) AM-PAC Inpatient ADL T-Scale Score : 42.03 [...] 10/11/2019 12:17 PM EDT Physical Therapy Facility/Department: [facility] 2 Initial Assessment NAME: Zachary Maynard : [...] Ambulation Assistance: Independent Transfer Assistance: Independent 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 Patient reports improvement in headache, currently 07/03. She reports improved photophobia; denies nausea or [...] tested Data: Lab Results: CBC: Recent Labs 10/09/19 0448 10/10/19 0627 10/11/19 0529 WBC 7.7 7.4 6.8 HGB 14.2 13.5 13.7 PLT 202 170 196 BMP: Recent Labs 10/09/19 0448 10/10/19 0627 10/11/19 0529 NA 141 132* 135 [...] of Toradol 15mg, Reglan 5mg, Benadryl 12.5mg [id number] x3 -Continued blood pressure management as you are doing -May consider LP through IR for persistent headache -We will follow Please note that this note was generated using a voice recognition dictation software. Although every effort was made to ensure the accuracy of this automated machine slat basket maker, some errors in machine slat basket maker may have occurred. * Marely Guardado RN - 10/10/2019 9:18 PM EDT Perfect served marketing production specialist intermed: Patient is due to get 100mg [...] Hanson MD - 10/10/2019 11:58 AM EDT [facility] Internal Medicine Teaching Residency Program Inpatient Daily Progress Note Patient: Zachary Maynard Date of : 1945 Acct: [id number] Room: Admit date: 10/09/2019 Today's date: 10/10/19 Number of days in the hospital: 1 SUBJECTIVE Admitting Diagnosis: Aneurysm of infrarenal abdominal aorta (HCC) CC: Lower Back Pain Pt examined at bedside. Chart & results reviewed. No acute episodes overnight Pt is heme stable and afebrile BP under control Headache 12/03 since morning Back pain has not improved [...] of COPD, primary hypertension was transferred from [facility] for management of infrarenal abdominal aortic aneurysm and for vascular consultation. States she started having lower back pain since . Describes the pain as constant, sharp, 10out of 10 in intensity associated with nausea. Patient went to the emergency department at [facility] to have hypertensive emergency with systolics above 200 and d-dimer was elevated. CT abdomen was done which showed 3.5 infrarenal aortic aneurysm, started on Cardene drip and pain medications we re given. Patient was transferred to [facility] found to be hypoxic in upper [...] Dwayne Hanson MD Internal Medicine Resident, PGY-1 [facility]; [place], [place] 10/10/2019, 12:00 PM * Duglas Rodrigues [...] Prieto DO - 10/09/2019 4:07 AM EDT [facility] ED Emergency Department Emergency [...] a 74 y.o. Female with transfer from [place]. Low back pain since . 3.4 infrarenal [...] [] Eloped FOLLOW-UP: Adina Bunch MD [address] [address] DISCHARGE MEDICATIONS: New Prescriptions No medications on [...] section and content) DATE CREATED AUTHOR 08/13/2017 [facility] DATE CREATED AUTHOR AUTHOR'S ORGANIZ ATION 11/03/2019 [facility] DATE CREATED AUTHOR AUTHOR'S ORGANIZ ATION 11/29/2020 [facility] DATE CREATED AUTHOR AUTHOR'S ORGANIZ ATION 06/18/2022 [facility] DATE CREATED AUTHOR AUTHOR'S ORGANIZ ATION 05/09/2023 [facility] DATE CREATED AUTHOR AUTHOR'S ORGANIZ ATION 01/19/2024 [facility] EPIC DATE CREATED AUTHOR AUTHOR'S ORGANIZ ATION 02/23/2024 [facility] Reason for Visit (unrecogniz ed section and content) Reason Comments Abdominal Pain Back Pain Status Reason Specialty Diagnoses / Procedures Referre d By Contact Referred To Contact Diagnoses AAA (abdominal aortic aneurysm) (HCC) Duglas Rodrigues MD [address] [place] [address] [facility] Reason Comments Eczema Care Teams (unrecognized sec tion and content) [...] April 17, 2023 End: April 17, 2023 Live In Housekeeper Relationship Specialty Start Date End Date Adina Bunch MD [address] [place] [address] PCP - General Family Medicine 01/06/23 Live In Housekeeper Relationship Specialty Start Date End Date Adina Bunch MD [address] [facility] [place] [address] PCP - General Family Medicine 01/06/23 Goals (unrecognized section and content) Goals may [...] BE BASED ON THE PRIMARY CLINICAL RECORDS. [facility] [facility]. provides no warranty or guarantee of the accuracy or completeness of information in this document.
--- NOTE | 2024-02-25 19:25 | ECG_ITS ---
[facility] Test Date: 2024-02-25 Pat Name: ZACHARY MAYNARD Department: Room: - Gender: Female Acute Care Nursing Assistant: : 1945 Requested By: ADINA BUNCH Order Number: [id number] Reading MD: MARTÍN ESPARZA Measurements Intervals Strang Rate: 59 P: 30 HI: 164 QRS: -26 QRSD: 86 T: 37 QT: 448 QTc: 448 Interpretive Statements 1100 Sinus rhythm 5211 Minimal voltage criteria for LVH, may be normal variant 7202 Moderate left axis deviation 9130 borderline ECG Electronically Signed On 02-28-2024 8:11:01 EST by MARTÍN ESPARZA
--- NOTE | 2024-02-25 19:25 | CT_ITS ---
[address] [address] Patient Name: ZACHARY MAYNARD MRN: [id number] date: 1945 Sex: F Assigned Patient Location: ER Current Patient Location: Accession/Order Number: [id number] Exam Date: 02/25/2024 19:38 Report Date: 02/25/2024 20:08 At the request of: DENISHA GUZMAN Procedure: CT chest wo con EXAMINATION: CT chest wo con, CT abdomen pelvis wo con HISTORY: Epigastric discomfort; AAA repair COMPARISON: CT abdomen pelvis 02/01/2024, CT chest 12/03/2023 TECHNIQUE: Axial, Coronal, and Sagittal CT images were obtained without and/or with IV contrast as indicated by examination type. Dose reduction techniques were achieved by using automated exposure control and/or adjustment of mA and/or kV according to patient size and/or use of iterative reconstruction technique. FINDINGS: LUNGS: Mild emphysematous changes. No acute infiltrates or suspicious nodules. PLEURA: No mass or effusion. VASCULATURE: No visible pulmonary arterial thrombus or attenuation. STEVEN: No mass or adenopathy. MEDIASTINUM: No mass or adenopathy. CARDIAC: No enlargement, pericardial thickening, or pericardial effusion. AORTA: Saccular aneurysm projecting from the inferior-left lateral margin of the proximal aortic arch, 2.3 cm in diameter projecting 1.3 cm external to the expected location of the wall. CORONARY ARTERY CALCIFICATIONS: Coronary calcifications are mild. CHEST WALL: No mass or axillary adenopathy. LIVER: No enlargement, atrophy, abnormal density, or significant focal lesion. BILIARY: Multiple 1 cm stones and dense bile within noninflamed gallbladder. PANCREAS: No lesion, fluid collection, ductal dilatation, or atrophy. SPLEEN: No enlargement or focal lesion. ADRENALS: No mass or enlargement. KIDNEYS: No mass, obstruction, or calcification. BOWEL/MESENTERY: Numerous large diverticula involving the descending and sigmoid colon with slight haziness of the pericolonic fat. AORTA/VASCULAR: 5.8 x 5.5 cm fusiform aneurysmal dilation of the infrarenal aorta with prior aortobifemoral endograft stent placement. RETROPERITONEUM: No mass or adenopathy. LYMPH NODES: No adenopathy. URINARY BLADDER: No visible focal wall thickening, lesion, or calculus. PELVIC ORGANS: Hysterectomy. ABDOMINAL WALL: No mass or hernia. BONES: Slight avascular necrosis involving weightbearing surface of the femoral heads. OTHER: Negative. CT/CT chest wo con IMPRESSION: 1. 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 2. Stable large fusiform abdominal aortic aneurysm with prior aorto bifemoral endograft stent placement. No evidence of leakage. 3. Mild emphysematous changes. 4. Cholelithiasis. 5. Distal colonic diverticulosis. Possible mild acute diverticulitis involving the distal descending colon. 6. 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 Electronically authenticated by: RENATA GAYTAN Date: 02/25/2024 20:08
--- NOTE | 2024-02-25 19:25 | CT_ITS ---
[address] [address] Patient Name: ZACHARY MAYNARD MRN: [id number] date: 1945 Sex: F Assigned Patient Location: ER Current Patient Location: Accession/Order Number: [id number] Exam Date: 02/25/2024 19:38 Report Date: 02/25/2024 20:08 At the request of: DENISHA GUZMAN Procedure: CT abdomen pelvis wo con EXAMINATION: CT chest wo con, CT abdomen pelvis wo con HISTORY: Epigastric discomfort; AAA repair COMPARISON: CT abdomen pelvis 02/01/2024, CT chest 12/03/2023 TECHNIQUE: Axial, Coronal, and Sagittal CT images were obtained without and/or with IV contrast as indicated by examination type. Dose reduction techniques were achieved by using automated exposure control and/or adjustment of mA and/or kV according to patient size and/or use of iterative reconstruction technique. FINDINGS: LUNGS: Mild emphysematous changes. No acute infiltrates or suspicious nodules. PLEURA: No mass or effusion. VASCULATURE: No visible pulmonary arterial thrombus or attenuation. STEVEN: No mass or adenopathy. MEDIASTINUM: No mass or adenopathy. CARDIAC: No enlargement, pericardial thickening, or pericardial effusion. AORTA: Saccular aneurysm projecting from the inferior-left lateral margin of the proximal aortic arch, 2.3 cm in diameter projecting 1.3 cm external to the expected location of the wall. CORONARY ARTERY CALCIFICATIONS: Coronary calcifications are mild. CHEST WALL: No mass or axillary adenopathy. LIVER: No enlargement, atrophy, abnormal density, or significant focal lesion. BILIARY: Multiple 1 cm stones and dense bile within noninflamed gallbladder. PANCREAS: No lesion, fluid collection, ductal dilatation, or atrophy. SPLEEN: No enlargement or focal lesion. ADRENALS: No mass or enlargement. KIDNEYS: No mass, obstruction, or calcification. BOWEL/MESENTERY: Numerous large diverticula involving the descending and sigmoid colon with slight haziness of the pericolonic fat. AORTA/VASCULAR: 5.8 x 5.5 cm fusiform aneurysmal dilation of the infrarenal aorta with prior aortobifemoral endograft stent placement. RETROPERITONEUM: No mass or adenopathy. LYMPH NODES: No adenopathy. URINARY BLADDER: No visible focal wall thickening, lesion, or calculus. PELVIC ORGANS: Hysterectomy. ABDOMINAL WALL: No mass or hernia. BONES: Slight avascular necrosis involving weightbearing surface of the femoral heads. OTHER: Negative. CT/CT abdomen pelvis wo con IMPRESSION: 1. 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 2. Stable large fusiform abdominal aortic aneurysm with prior aorto bifemoral endograft stent placement. No evidence of leakage. 3. Mild emphysematous changes. 4. Cholelithiasis. 5. Distal colonic diverticulosis. Possible mild acute diverticulitis involving the distal descending colon. 6. 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 Electronically authenticated by: RENATA GAYTAN Date: 02/25/2024 20:08
--- NOTE | 2024-02-25 19:26 | ED_ITS ---
HPI HPI - General Adult General Chief complaint: Chest Pain Stated complaint: CP Time Seen by Provider: 02/25/24 19:23 Source: patient Mode of arrival: ambulance Limitations: no limitations History of Present Illness HPI narrative: Patient is an 78-year-old female with a history of chronic kidney disease, CHF, recent AAA repair epigastric abdominal pain that began just prior to arrival. Patient just came home from the [facility] today. She was eating mashed potatoes and sauerkraut when she developed epigastric discomfort. Patient's interpreted this is severe chest pain and called 911. Patient has no pain or nausea at time of arrival. She states she just feels tired. She apparently went up to [place] for a recent heart cath, they found a dilated aortic aneurysm without rupture on routine imaging and the patient had a mesh repair with vascular services at [facility]. She then developed difficulty with her bowel function and kidney function, she was found to be in renal failure secondary to IV contrast dye. They did a second procedure for stents to the renal arteries with improvement. She has not had any fevers or other upper respiratory symptoms. Related Data Home Medications ?Medication ?Instructions ?Recorded ?Confirmed albuterol sulfate 90 mcg/actuation 2 puff inhalation Q4H PRN 11/23/23 02/25/24 aerosol inhaler shortness of breath or wheezing amiodarone 200 mg tablet 200 mg PO DAILY 12/02/23 02/25/24 ezetimibe 10 mg tablet 10 mg PO DAILY 12/02/23 02/25/24 memantine 28 mg capsule 28 mg PO DAILY 12/02/23 02/25/24 sprinkle,extended release 24hr ropinirole 0.5 mg tablet 0.5 mg PO .QHS 12/02/23 02/25/24 tiotropium bromide 2.5 2 puff inhalation DAILY PRN 12/02/23 02/25/24 mcg/actuation mist for inhalation shortness of breath (Spiriva Respimat) metoprolol tartrate 50 mg tablet 50 mg PO BID 12/03/23 02/25/24 docusate sodium 100 mg capsule 100 mg PO DAILY 02/01/24 02/25/24 fexofenadine 180 mg tablet 180 mg PO DAILY 02/01/24 02/25/24 furosemide 20 mg tablet 20 mg PO DAILY 02/01/24 02/25/24 lidocaine 5 % topical patch 1 patch topical DAILY 02/01/24 02/01/24 polyethylene glycol 3350 17 17 g PO DAILY 02/01/24 02/25/24 gram/dose oral powder triamcinolone acetonide 0.1 % 1 applic topical BID PRN itching 02/01/24 02/25/24 topical cream Previous Rx's ?Medication ?Instructions ?Recorded apixaban 5 mg tablet (Eliquis) 5 mg PO BID #60 tabs 11/28/23 food supplemt, lactose-reduced 1 ea PO BID #5,688 mL 12/03/23 (Ensure Active Protein-Muscle oral liquid) isosorbide mononitrate 30 mg 30 mg PO QD #30 tabs 12/03/23 tablet,extended release 24 hr nitroglycerin 0.4 mg sublingual 0.4 mg sublingual Q5M PRN Chest 12/03/23 tablet Pain #20 tabs Allergies Allergy/AdvReac Type Severity Reaction Status Date / Time meperidine (From Demerol) Allergy Severe Anaphylaxis Verified 02/25/24 19:07 Opioid HPI Opioid Management Most Recent Opioid Data: Last Pain Scale 1 12/04/23 13:13 12/04/23 Last ORT Total Score 0 12/02/23 21:33 12/02/23 Last ORT Risk Category Low Risk 12/02/23 21:33 12/02/23 Review of Systems ROS Constitutional Denies: fever or chills Ears, nose, mouth, and throat Denies: throat pain or nasal congestion Cardiovascular Reports: chest pain Respiratory Denies: shortness of breath or cough Gastrointestinal Reports: abdominal pain; Denies: nausea or vomiting Musculoskeletal Denies: back pain Integumentary/Breast Denies: rash Neurological Denies: numbness in extremities or weakness in extremities Hematologic/Lymphatic Denies: easy bruising or easy bleeding [facility] Medical History (Updated 02/25/24 @ 20:45 by KIMBERLY Butler) Severe protein-calorie malnutrition ?E43 - Unspecified severe protein-calorie malnutrition (ICD-10) Systolic heart failure ?I50.20 - Unspecified systolic (congestive) heart failure (ICD-10) Hypertension ?I10 - Essential (primary) hypertension (ICD-10) Non-sustained ventricular tachycardia ?I47.29 - Other ventricular tachycardia (ICD-10) Chest pain ?R07.9 - Chest pain, unspecified (ICD-10) Essential (primary) hypertension ?I10 - Essential (primary) hypertension (ICD-10) ZAVALA (dyspnea on exertion) ?R06.09 - Other forms of dyspnea (ICD-10) Elevated troponin level not due myocardial infarction ?R79.89 - Other specified abnormal findings of blood chemistry (ICD-10) Atrial fibrillation ?I48.91 - Unspecified atrial fibrillation (ICD-10) Dehydration ?E86.0 - Dehydration (ICD-10) Upper respiratory infection ?J06.9 - Acute upper respiratory infection, unspecified (ICD-10) COPD (chronic obstructive pulmonary disease) ?J44.9 - Chronic obstructive pulmonary disease, unspecified (ICD-10) History of uterine cancer ?Z85.42 - Personal history of malignant neoplasm of other parts of uterus (ICD-10) Edema ?R60.9 - Edema, unspecified (ICD-10) Diabetes ?E11.9 - Type 2 diabetes mellitus without complications (ICD-10) HTN (hypertension) ?I10 - Essential (primary) hypertension (ICD-10) Surgical History (Updated 02/01/24 @ 21:12 by Argentina Keenan) S/P abdominal aortic aneurysm repair ?Z98.890 - Other specified postprocedural states (ICD-10) ?Z86.79 - Personal history of other diseases of the circulatory system (ICD- 10) History of abdominal aortic aneurysm repair ?Z98.890 - Other specified postprocedural states (ICD-10) H/O: hysterectomy ?Z90.710 - Acquired absence of both cervix and uterus (ICD-10) Family History Father Family history of cancer Family history of COPD (chronic obstructive pulmonary disease) Mother Family history of diabetes mellitus Family history of hypertension Family history of myocardial infarction Family history of CHF (congestive heart failure) Social History Within the past year, how often did you have a drink containing alcohol: never Score interpretation: A score less than 3 is consistent with normal alcohol consumption. Smoking status: Former smoker Non-prescribed substance use: denies use Highest level of school completed/degree received: 10th grade Little interest or pleasure in doing things: not at all Feeling down, depressed, or hopeless: not at all Exam Narrative Exam Narrative: Gen.: Awake, alert, in no distress Head: Normocephalic, atraumatic ENT: Moist mucous membranes Respiratory: No respiratory distress, lungs clear bilaterally Cardio: Regular rate and rhythm Gastrointestinal: Abdomen is soft, nondistended and nontender to palpation Extremities: Moves extremities equally Psych: Normal mood and affect Neuro: No focal neuro deficit Skin: Warm, dry, intact Constitutional Vital Signs, click to edit/add: Last Vital Signs Temp 98 F 02/25/24 19:01 Pulse 58 L 02/25/24 19:01 Resp 22 H 02/25/24 19:01 BP 145/57 H 02/25/24 19:01 Pulse Ox 99 02/25/24 19:20 O2 Del Method Room Air 02/25/24 19:20 Course Vital Signs Vital signs: Vital Signs Temperature 98 F 02/25/24 19:01 Pulse Rate 58 L 02/25/24 19:01 Respiratory Rate 22 H 02/25/24 19:01 Blood Pressure 145/57 H 02/25/24 19:01 Pulse Oximetry 96 02/25/24 19:01 Oxygen Delivery Method Room Air 02/25/24 19:01 Temperature 98 F 02/25/24 19:01 Pulse Rate 58 L 02/25/24 19:01 Respiratory Rate 22 H 02/25/24 19:01 Blood Pressure 145/57 H 02/25/24 19:01 Pulse Oximetry 99 02/25/24 19:20 Oxygen Delivery Method Room Air 02/25/24 19:20 Medical Decision Making [facility] Narrative Medical decision making narrative: Patient's labs are stable, initial troponin is negative and EKG is nondiagnostic. CTs of the chest and abdomen with no evidence of acute process. Stable postop changes. Patient is pain-free in the emergency department. I contacted her vault cashier at [facility], Dr. Weaver, who is in agreement that the patient can be admitted to this facility and does not require transfer to tertiary care at this time. Patient was reevaluated by attending physician, recommended admission for observation. Patient is adamant that she will not be admitted and will sign out AGAINST MEDICAL ADVICE. She understands the risks of and disability, she will return to the emergency department if symptoms change or worsen SHARED APC VISIT, PHYSICIAN ATTESTATION: [id number] I performed a substantive part of the MDM during the patient?s E/M visit. I personally evaluated and examined the patient. I personally made or approved the documented management plan and acknowledge its risk of complications. Medical Records Medical records reviewed: Yes I reviewed the patient's medical records Lab Data Lab results reviewed: Yes I reviewed the patient's lab results Labs: Lab Results 02/25/24 Range/Units 19:13 WBC 5.0 (4.0-11.0) 10^3/uL RBC 3.15 L (4.20-5.40) 10^6/uL Hgb 8.8 L (12.0-16.0) g/dL Hct 28.4 L (36.0-48.0) % MCV 90.2 (81.0-99.0) fL MCH 27.9 (26.7-34.0) pg MCHC 31.0 (29.9-35.2) g/dL RDW 16.9 H (11.0-15.0) % Plt Count 173 (150-450) 10^3/uL MPV 10.8 (9.5-13.5) fL Neut % (Auto) 53.7 (43.0-75.0) % Lymph % (Auto) 28.9 (20.5-60.0) % Hancock % (Auto) 8.9 (1.7-12.0) % Eos % (Auto) 7.5 H (0.9-7.0) % Baso % (Auto) 0.6 (0.2-2.0) % Neut # (Auto) 2.7 (1.4-6.5) 10^3/uL Lymph # (Auto) 1.4 (1.2-3.8) 10^3/uL Hancock # (Auto) 0.4 (0.3-0.8) 10^3/uL Eos # (Auto) 0.4 (0.0-0.7) 10^3/uL Baso # (Auto) 0.0 (0.0-0.1) 10^3/uL Abs Immat Gran (auto) 0.02 (0.00-0.03) 10^3/uL Imm/Tot Granulo (auto) 0.4 (0.0-0.5) % PT 11.1 (9.0-11.6) sec INR 1.05 Sodium 145 (136-145) mmol/L Potassium 4.3 (3.5-5.1) mmol/L Chloride 108 H (98-107) mmol/L Carbon Dioxide 29.4 (21.0-32.0) mmol/L Anion Gap 11.9 BUN 25.0 H (7.0-18.0) mg/dL Creatinine 1.89 H (0.55-1.02) mg/dL Est GFR ( Amer) 31 L (>=60 mL/min/1.73m^2) Est GFR (Non-Af Amer) 26 L (>=60 mL/min/1.73m^2) BUN/Creatinine Ratio 13.2 Glucose 151 H (74-106) mg/dL Calcium 8.9 (8.5-10.1) mg/dL Total Bilirubin 0.4 (0.2-1.0) mg/dL AST 17 (15-37) U/L ALT 13 L (14-59) U/L Alkaline Phosphatase 102 (46-116) U/L Troponin I High Sens 8.4 (4.0-51.3) pg/mL NT-Pro-B Natriuret Pep 1827.0 H* (<=1800.0) pg/mL Total Protein 6.2 L (6.4-8.2) g/dL Albumin 2.9 L (3.4-5.0) g/dL Globulin 3.3 g/dL Albumin/Globulin Ratio 0.9 Lipase 63.0 (16.0-77.0) U/L Imaging Data CT scan - chest: Attestation: I have reviewed the pertinent imaging results. Radiologist's impression: ITS Impressions Abdomen/Pelvis CT 02/25/24 19:25 IMPRESSION: 1. 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 2. Stable large fusiform abdominal aortic aneurysm with prior aorto bifemoral endograft stent placement. No evidence of leakage. 3. Mild emphysematous changes. 4. Cholelithiasis. 5. Distal colonic diverticulosis. Possible mild acute diverticulitis involving the distal descending colon. 6. 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 Electronically authenticated by: RENATA GAYTAN Date: 02/25/2024 20:[address] 02/25/24 19:25 IMPRESSION: 1. 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 2. Stable large fusiform abdominal aortic aneurysm with prior aorto bifemoral endograft stent placement. No evidence of leakage. 3. Mild emphysematous changes. 4. Cholelithiasis. 5. Distal colonic diverticulosis. Possible mild acute diverticulitis involving the distal descending colon. 6. 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 Electronically authenticated by: RENATA GAYTAN Date: 02/25/2024 20:08 ECG Data Attestation: I personally reviewed and interpreted this ECG as follows: (Normal sinus rhythm at a rate of 59, no acute ST elevation or ectopy. EKG reviewed by attending physician) Discharge Plan Discharge Stand Alone Forms: Portal Instructions Chief Complaint: Chest Pain Clinical Impression: Atypical chest pain Patient Disposition: Left Against Medical Advice Time of Disposition Decision: 20:45 Condition: Good Prescriptions / Home Meds: No Action Eliquis 5 mg Tablet 5 mg PO BID Qty: 60 11RF amiodarone 200 mg tablet 200 mg PO DAILY Spiriva Respimat 2.5 mcg/actuation mist 2 puff INHALATION DAILY PRN (Reason: shortness of breath) Patient Comments: states that the pt uses as needed ezetimibe 10 mg tablet 10 mg PO DAILY ropinirole 0.5 mg tablet 0.5 mg PO .QHS Rx Instructions: 1-3 HOURS BEFORE BEDTIME memantine 28 mg capsule,sprinkle,ER 24hr 28 mg PO DAILY metoprolol tartrate 50 mg tablet 50 mg PO BID isosorbide mononitrate 30 mg Tablet Extended Release 24 Hr 30 mg PO QD Qty: 30 11RF nitroglycerin 0.4 mg Tablet, Sublingual 0.4 mg sublingual Q5M PRN (Reason: Chest Pain) Qty: 20 11RF Patient Comments: has not used for awhile Ensure Active Protein-Muscle Liquid 1 ea PO BID Qty: 5688 11RF docusate sodium 100 mg capsule 100 mg PO DAILY Patient Comments: is not positive if pt has been taking [facility] fexofenadine 180 mg tablet 180 mg PO DAILY furosemide 20 mg tablet 20 mg PO DAILY lidocaine 5 % adhesive patch,medicated 1 patch topical DAILY Patient Comments: unsure if she has been using when at the prison (was just released) Rx Instructions: leave on most painful area for up to 12 hrs polyethylene glycol 3350 17 gram/dose powder 17 g PO DAILY triamcinolone acetonide 0.1 % cream 1 applic TOPICAL BID PRN (Reason: itching) albuterol sulfate 90 mcg/actuation HFA aerosol inhaler 2 puff INHALATION Q4H PRN (Reason: shortness of breath or wheezing) Patient Comments: takes as needed Print Language: Albanian Instructions: Chest Pain (ED) Referrals: Velasquez Langley MD [Primary Care Provider] - 1 week
[2024-02-25 19:36] LABS: Basophils Percent Auto 0.6 % (0.2-2.0); Eosinophils Absolute Auto 0.4 10^3/uL (0.0-0.7); Eosinophils Percent Auto 7.5 % (0.9-7.0); Hematocrit 28.4 % (36.0-48.0); Hemoglobin 8.8 g/dL (12.0-16.0); Immature Granulocytes Abs Auto 0.02 10^3/uL (0.00-0.03); Immature Granulocytes Pct Auto 0.4 % (0.0-0.5); Lymphocytes Absolute Auto 1.4 10^3/uL (1.2-3.8); Lymphocytes Percent Auto 28.9 % (20.5-60.0); Mean Corpuscular Hemoglobin 27.9 pg (26.7-34.0); Mean Corpuscular Volume 90.2 fL (81.0-99.0); Mean Platelet Volume 10.8 fL (9.5-13.5); Monocytes Absolute Auto 0.4 10^3/uL (0.3-0.8); Monocytes Percent Auto 8.9 % (1.7-12.0); Neutrophils Absolute Auto 2.7 10^3/uL (1.4-6.5); Neutrophils Percent Auto 53.7 % (43.0-75.0); Platelet Count 173 10^3/uL (150-450); Red Blood Count 3.15 10^6/uL (4.20-5.40); Red Cell Distribution Width 16.9 % (11.0-15.0)
[2024-02-25 19:45] LABS: INR 1.05; Prothrombin Time 11.1 sec (9.0-11.6)
[2024-02-25 19:50] LABS: Alanine Aminotransferase 13 U/L (14-59); Albumin Globulin Ratio 0.9; Albumin Level 2.9 g/dL (3.4-5.0); Alkaline Phosphatase 102 U/L (46-116); Anion Gap 11.9; Aspartate Amino Transferase 17 U/L (15-37); BUN Creatinine Ratio 13.2; Bilirubin Total 0.4 mg/dL (0.2-1.0); Calcium 8.9 mg/dL (8.5-10.1); Carbon Dioxide 29.4 mmol/L (21.0-32.0); Chloride 108 mmol/L (98-107); Estimated GFR (African America 31 (>=60 mL/min/1.73m^2); Estimated GFR (Non-African Ame 26 (>=60 mL/min/1.73m^2); Globulin 3.3 g/dL; Glucose 151 mg/dL (74-106); Potassium 4.3 mmol/L (3.5-5.1); Sodium 145 mmol/L (136-145); Total Protein 6.2 g/dL (6.4-8.2)
[2024-02-25 19:55] LABS: Troponin I High Sensitivity 8.4 pg/mL (4.0-51.3)
== END 2024-02-25 21:06 | disposition left against medical advice (07) ==
PROVIDERS: Physician Assistant; Emergency Provider Student in an Organized Health Care Education/Training Program; PCP Family Medicine
DX: R07.89 Other chest pain (principal); Z53.29 Procedure and treatment not carried out because of patient's decision for other reasons; N18.9 Chronic kidney disease, unspecified; I50.9 Heart failure, unspecified; Z90.710 Acquired absence of both cervix and uterus; Z87.891 Personal history of nicotine dependence; K57.30 Diverticulosis of large intestine without perforation or abscess without bleeding; K80.20 Calculus of gallbladder without cholecystitis without obstruction
CPT/HCPCS: 36415; 71250; 74176; 80053; 83690; 83880; 84484; 85025; 85610; 93005; 99285

== ENCOUNTER 2024-03-31 16:06 | Outpatient (OUT) | payer MEDICARE, SELFPAY ==
--- NOTE | 2024-03-31 16:17 | US_ITS ---
The [address] [address] Patient Name: ZACHARY MAYNARD MRN: [id number] date: 1945 Sex: F Assigned Patient Location: [facility] Current Patient Location: Accession/Order Number: [id number] Exam Date: 03/31/2024 16:27 Report Date: 04/01/2024 07:35 At the request of: ADINA BUNCH Procedure: US venous doppler UE LT EXAM: US venous doppler UE LT HISTORY: LEFT ARM PAIN M79.602 COMPARISON: None. TECHNIQUE: Grayscale, color and Doppler FINDINGS: Region: Left arm Thrombus: None Flow: Normal Compressibility: Normal Augmentation: Normal In the region of patient's palpable abnormality, medial antecubital fossa a 0.8 x 0.4 x 0.6 cm area of focal hyperechogenicity is observed, this appears to be within the muscle and is indeterminate. US/US venous doppler UE LT IMPRESSION: No deep or superficial vein thrombus in the left arm 0.8 cm hyperechoic focus in the region of the patient's palpable abnormality, indeterminate. Electronically authenticated by: VLAERIO HOOKER Date: 04/01/2024 07:35
== END 2024-03-31 16:07 | disposition home or self-care (01) ==
LOC: RAD 16:08
PROVIDERS: PCP Family Medicine; Visit Provider Family Medicine
DX: M79.602 Pain in left arm (principal); R22.32 Localized swelling, mass and lump, left upper limb
CPT/HCPCS: 93971

== ENCOUNTER 2024-04-01 15:57 | Outpatient (OUT) | payer MEDICARE, SELFPAY ==
--- NOTE | 2024-04-01 16:16 | XR_ITS ---
The [address] [address] Patient Name: ZACHARY MAYNARD MRN: [id number] date: 1945 Sex: F Assigned Patient Location: [facility] Current Patient Location: [facility] Accession/Order Number: [id number] Exam Date: 04/01/2024 16:08 Report Date: 04/01/2024 21:52 At the request of: ADINA BUNCH Procedure: XR wrist LT min 3V EXAM: XR wrist LT min 3V HISTORY: Left wrist pain, M25.532 COMPARISON: None. TECHNIQUE: 3 views of the left wrist were obtained. FINDINGS: There is no evidence of an acute fracture or dislocation. The joint spaces are intact throughout. Ulnar minus variance is present. Small soft tissue calcifications are seen in the along the anterior and radial aspect of the distal radius. These are of uncertain significance. The soft tissues otherwise intact. XR/XR wrist LT min 3V IMPRESSION: No acute fracture or dislocation. The joint spaces are intact. Small soft tissue calcifications are present. Comparison with a previous study may be helpful in confirming the chronicity of these findings. Electronically authenticated by: TIMOTHY CHAMBERS Date: 04/01/2024 21:52
== END 2024-04-01 15:58 | disposition home or self-care (01) ==
PROVIDERS: PCP Family Medicine; Visit Provider Family Medicine
DX: M25.532 Pain in left wrist (principal)
CPT/HCPCS: 73110

== ENCOUNTER 2024-06-30 12:30 | Outpatient (OUT) | payer MEDICARE, SELFPAY ==
[2024-06-30 12:39] LABS: Hemoglobin 11.3 g/dL (12.0-16.0)
[2024-06-30] MEDS: ALBUTEROL SULFATE 2.5 MG/3 ML VIAL NEB IH (13:30)
--- NOTE | 2024-06-30 13:31 | RT_ITS ---
The [facility] Test Date: 2024-06-30 Pat Name: ZACHARY MAYNARD Department: Room: - Gender: Female Counselor/Art Therapist: Alisa Bradley RRT : 1945 Requested By: Bhavesh Fulton Order Number: [id number] Reading MD: Usman Zavala Interpretive Statements Pulmonary function testing was completed according to ATS criteria. Findings were considered accurate and reproducible with exception of panting maneuvers. Both pre- and post-bronchodilator values utilized for spirometry. Spirometry (based on pre-bronchodilator values): -FEV1/FVC: Reduced @ 58% -FEV1: Normal @ 119% -FVC: Supra-normal @ 149% -BPE90-39%: Reduced @ 67% -There is a partial bronchodilator response in FVC which meets >200mL increase but <12% change. Lung volumes by plethysmography (based on pre-bronchodilator values): -RV: Increased @ 168% -TLC: Increased @ 148% Diffusion capacity: -DLCO: Normal @ 104% when corrected for Hb 11.3g/dL Impressions: -Spirometry consistent with a mild obstructive pattern with a near positive bronchodilator response. An elevated RV and TLC suggest air trapping and hyperinflation respectively. The diffusion capacity is normal. Overall study suggests asthma. Clinical correlation required. Electronically Signed On 07-05-2024 16:00:47 EDT by Usman Zavala
== END 2024-06-30 12:31 | disposition home or self-care (01) ==
LOC: CARD 12:30
PROVIDERS: PCP Family Medicine; Visit Provider Internal Medicine Cardiovascular Disease
DX: R06.09 Other forms of dyspnea (principal); Z79.899 Other long term (current) drug therapy
CPT/HCPCS: 36415; 85018; 94060; 94726; 94729

== ENCOUNTER 2024-07-27 09:34 | Outpatient (OUT) | payer MEDICARE, SELFPAY ==
[2024-07-27 10:20] LABS: Alanine Aminotransferase 26 U/L (14-59); Aspartate Amino Transferase 18 U/L (15-37); Chol HDL Ratio 3.3; Cholesterol 184 mg/dL (<=200); HDL Cholesterol 55 mg/dL (40-60); Triglycerides 156 mg/dL (<=150); VLDL CHOLESTEROL 31.2 mg/dL
== END 2024-07-27 09:35 | disposition home or self-care (01) ==
LOC: LAB 09:37
PROVIDERS: PCP Family Medicine; Visit Provider Internal Medicine Cardiovascular Disease
DX: E78.2 Mixed hyperlipidemia (principal)
CPT/HCPCS: 36415; 80061; 84450; 84460

== ENCOUNTER 2024-08-16 15:39 | Outpatient (OUT) | payer MEDICARE, SELFPAY ==
--- OUTSIDE RECORDS SUMMARY | 2024-08-04 15:00 | XMS_ITS | Encounter Summary ---
Author Organization [facility] Address [address] [place] [address] Care Team Providers Care Sausage Stuffer Name Role Phone Velasquez Langley MD Primary Care Provider [phone] Reason for Referral * Consultation (Routine) - Closed Specialty Diagnoses / Procedures Referred By Shelton royal Referred To Contact Orthopaedic Surgery Diagnoses AVN (avascular necrosis of bone) ([facility]) Kenyatta Park CNP [address] [place] [address] Phone: tel: fax: [facility] [address] [place] [address] [place] [id number] Phone: tel: fax: Referral ID Status Reason Start Date Expiration Date V isits Requested Visits Authorized [id number] Closed Specialty Services Required 08/04/2024 08/04/2025 1 1 Reason for Visit * Reason Comments Follow-up Mesenteric artery st enosis, celiac artery stenosis Encounter Details Date Type Department Care Team (Late st Contact Info) Description 08/04/2024 3:00 PM EDT Follow-Up [facility] Vascular and Endovascular Surgery [address] [place] [address] Gilberto Whitten MD [address] [place] [address] Superior mesenteric artery stenosis (Primary Dx); Infrarenal abdominal aortic aneurysm (AAA) without rupture; Celiac artery stenosis; AVN (avascular necrosis of bone) ([facility]) Social History Tobacco Use Types Packs/Day Years Used Date Smoking Tobacco: Former Cigarettes Smokeless Tobacco: Never Tobacco Cessation:Counseling Given: Yes Alcohol Use Standard Drinks/Week Comments Never 0 (1 standard drink = 0.6 oz pur e alcohol) [facility] Utilities Answer Date Recorded In the past [...] How often do you attend chur or jewish services? Never 01/27/2024 Do you belong to any clubs o r organizations such as scientologist groups, unions, fraternal or athletic groups, or [...] Recorded Patient Health Questionnaire-2 Score 0 05/11/2024 [facility] of Occupat ional Health - Occupational Stress [...] any time in the past 12 m [facility], were you homeless or living in a penitentiary (including now)? No 02/02/2024 Hunger Vital Sign [...] There were no encounter diagnoses. * Kenyatta aPrk CNP - 08/04/2024 3:00 PM EDT Images [...] continue to monitor closely Kenyatta Park, [place], [facility] Division of Vascular/Endovascular and Wound Surgery [1] Past Medical History: Diagnosis Date Abnormal ECG Arrhythmia Atrial fibrillation (CMS/HCC) COPD (chronic obstructive pulmonary disease) (CMS/HCC) Coronary artery disease Diabetes mellitus (CMS/HCC) Hyperlipidemia Hypertension documented in this encounter Plan of Treatment Scheduled Referrals Name Type Priority Associated Diagnoses Order Schedule Ambulatory referral to Orthopaedic Surgery Outpatient Referral Routine AVN (avascular necrosis of bone) ([facility]) Expected: 08/04/2024 (Approximate), Expires: 02/03/2025 documented as of this encounter Visit Diagnoses Diagnosis Superior mesenteric artery stenosis- Primary Stricture of artery Infrarenal abdominal aortic aneurysm (AAA) without rupture Celiac artery stenosis Stricture of artery AVN (avascular necrosis of bone) ([facility]) Aseptic necrosis of bone, site unspecified documented in this encounter Care Teams Sausage Stuffer Relationship Specialty Start Date End Date Velasquez Langley MD [address] [facility] [place] [phone] PCP - General 12/02/23 documented as of this encounter
--- OUTSIDE RECORDS SUMMARY | 2024-08-05 11:10 | XMS_ITS ---
Author Organization The [facility] [place] Address [address] [place] [address] Care Team Providers Care Assembly Riveter Name Role Phone Enio Langley Primary Care Provider Usman Zavala [phone] REASON FOR VISIT LICENSING SPECIALIST-Referral Appointment Encounters Encounter Location Date Provider Diagnosis Pulmonary Medicine [place] [address] [place] [address] 08/05/2024 Usman Zavala Plan Of Treatment No Information Progress Notes * ALEYDAEarnest CUTLERLissettB:[birth year] (79 yo F)Acc No.[id number]:08/05/2024 Patient: Shayy HARMAN :1945 A ge:79 Y S ex:Female Address:[facility] [place], [address] * true * Date: Generated for Printi ng/Fajosephg/eTransmitting on: 0 08/16/2024 03:42 PM EDT
--- NOTE | 2024-08-16 | XR_ITS ---
The [address] [address] Patient Name: ZACHARY MAYNARD MRN: [id number] date: 1945 Sex: F Assigned Patient Location: LAB Current Patient Location: LAB Accession/Order Number: [id number] Exam Date: 08/16/2024 16:24 Report Date: 08/16/2024 16:27 At the request of: ADINA BUNCH MD Procedure: XR chest 2V XR chest 2V 08/16/2024 4:16 PM SIGNS AND SYMPTOMS: Shortness of breath, UTI PROTOCOL: Frontal and lateral radiograph of the chest COMPARISON: 02/25/2024 FINDINGS: The trachea is midline. Atherosclerotic changes are present in the thoracic aorta. The heart and mediastinal structures are within normal limits. Mild dependent scarring or atelectasis is noted in the lung bases. The bony thorax is intact. XR/XR chest 2V IMPRESSION: No acute cardiopulmonary pathology. Impression dictated by: Xavier Bonds M.D. 08/16/2024 4:27 PM Dictation Location: [employer] Electronically authenticated by: [id number] Date: 08/16/2024 16:27
--- OUTSIDE RECORDS SUMMARY | 2024-08-16 10:45 | XMS_ITS ---
Author Organization [facility] in [place] Address [address] [place] [address] Care Team Providers Care Medical Staff Services Coordinator Name Role Phone Enio Langley Primary Care Provider Allergies Allergen (clinical drug ingredient) Drug/Non Drug Allergy documented on EMR Reaction Allergy Type Onset Date Status aspirin Aspirin Excessive Bleeding Drug Allergy Active atorvastatin Atorvastatin Calcium Unknown Drug Allergy Active moxifloxacin Avelox Unknown Drug Allergy Acti ve ciprofloxacin Cipro Unknown Drug Allergy Act shantanu meperidine Demerol Unknown Drug Allergy Active Nubain Unknown Drug Allergy Active promethazine Phenergan Unknown Drug Allergy Acti ve cefdinir Cefdinir Unknown Drug Allergy Active Substance with sulfonamide structure and antibacterial mechanism of action (substance) Sulfa Antibiotics Unknown Drug Allergy Active Results Component Value Reference Range Notes UA DIP NONAUTO WO MICRO (810 02) - IN OFFICE (Not yet reviewed by provider) Interpretation: Performing Lab: Notes/Report: COLOR straw CLARITY clear GLUCOSE n BILIRUBIN n KETONE n SPECIFIC GRAVITY 1.020 BLOOD n PH 5 PROTEIN trace UROBILINOGEN n NITRITE n LEUKOCYTE ESTERASE ++ REASON FOR VISIT breathing issues- said she is on breathing pills and doesn't feel like they continue to work after a few hours, Lower pelvic pain- thinks possible UTI, Rash under her breast Medications Medication SIG (Take, Route, Frequency, Duration) Notes Start Date End Date Status Pyridium 200 MG 1 tablet after meals Orally Three times a day for 2 days 07/21/2024 Active Doxycycline Monohydrate 100 MG 1 capsule Orally bid for 10 days 08/16/2024 Active predniSONE 10 MG 1 tablet Orally once daily PRN 05/28/2024 Active Montelukast Sodium 10 MG 1 tablet Orally Once a day for 30 days 07/06/2024 Active rOPINIRole HCl 0.5 MG 1 tablet 1 to 3 ho urs before bedtime Orally at bedtime 12/04/2023 Active Memantine HCl ER 28 MG 1 capsule Orally Once a day 05/28/2024 Active Meclizine HCl 25 MG 1 or 2 tablet as nee ded Orally TID PRN for 30 days PRN 02/16/2024 Activ e Macrobid 100 MG 1 capsule with food Orally every 12 hrs for 5 day(s) 07/21/2024 Active Isosorbide Mononitrate ER 30 MG 1 tablet in the morning Orally Once a day 12/04/2023 Active Ferrous Sulfate 325 (65 Fe) MG 1 tablet Orally BID 03/03/2024 Active Ketoconazole 2 % 1 application Anesthesiology Teacher ally bid for 14 days 08/16/2024 Active Amiodarone HCl 200 MG 1 tablet Orally Once a day Active Ezetimibe 10 MG TAKE 1 TABLET BY MOLLY DAILY for 90 days Active Eliquis 5 MG 1 tablet Orally bid Active Carvedilol 6.25 MG 1 tablet with food O rally Twice a day 03/03/2024 Active Adbry 300 MG/2ML as directed Subcutaneous 06/12/19 25 Active Social History Tobacco Use: Social History Observation Description Date Details (start date - stop date) Former Smoker NA - 02/24/2010 Tobacco Use/Smoking Question Answer Notes Patient is a former smoker When did you stop smoking? 02/24/2010 Problems Problem Type SNOMED Code ICD Code Onset Dates Problem Status W/U Status Risk Notes Problem Advanced dementia (F03.90) Active confirmed Problem Chronic kidney disease stage 3A (disorder) (614239591) Chronic kidney disease, stage 3a (N18.31) Active confirmed Vital Signs Weight 165.2 lbs 08/16/2024 Height 63 in 08/16/2024 Blood pressure systolic 138 mm Hg 08/17/19 25 Blood pressure diastolic 66 mm Hg 025 BMI 29.26 kg/m2 08/16/2024 Encounters Encounter Location Date Provider Diagnosis [facility] [address] [place] [address] 08/16/2024 Enio Langley UTI (urinary tract infection) N39.0 ; Advanced dementia F03.90 ; Chronic kidney disease, stage 3a N18.31 ; Tinea corporis B35.4 and Dyspnea R06.00 Assessments Encounter Date Diagnosis (ICD Code) Assessment Notes Treatment Notes Treatment Clinical Notes Section Notes 08/16/2024 UTI (urinary tract infection) (ICD-10 - N39.0) chekcing urine culer and urnifro protine 08/16/2024 Advanced dementia (ICD-10 - F03.90) memory part pretty stable no argument from 08/16/2024 Chronic kidney disease, stage 3a (ICD-10 - N18.31) checing uirn protien and bun creat today 08/16/2024 Tinea corporis (ICD-10 - B35.4) ketoconazole 08/16/2024 Dyspnea (ICD-10 - R06.00) Plan Of Treatment Medication Medication Name Sig Start Date Stop Date Notes Doxycycline Monohydrate 100 MG 1 capsule Orally bid for 10 days 08/16/2024 Ketoconazole 2 % 1 application Anesthesiology Teacher ally bid for 14 days 08/16/2024 Treatment Notes Assessment Notes UTI (urinary tract infection) chekcing u rine culer and urnifro protine Advanced dementia memory part pretty s table no argument from Chronic kidney disease, stage 3a checing uirn protien and bun creat today Tinea corporis ketoconazole Pending Test Test Name Order Date Urinalysis Microscopic 08/16/2024 RANDOM URINE PROTEIN 08/16/2024 UA DIP NONAUTO WO MICRO (16406) - IN OFF ICE 08/16/2024 BNP 08/16/2024 CBC AUTO DIFF 08/16/2024 CULTURE URINE 08/16/2024 PROF 14(COMP METB) 08/16/2024 XR CHEST 2 V 08/16/2024 THYROID PANEL (T4/TSH/FREE T3) Progress Notes * Carlos MAYNARDB:[birth year] (79 yo F)Acc No.[id number]:08/16/2024 UNLOCKED PROGRESS NOTE Progress Note Patient: Shayy HARMAN Provider: Toribio Lanlgey (TTC), :1945 A ge:79 Y S ex:Female Date:08/16/2024 Address:[address], [id number] Check In:02:43 PM ESTCheck O ut:03:25 PM EST Subjective: * Chief Complaints: * 1 . Breathing issues- said she is on breathing pills and doesn't feel like they continue to work after a few hours. 2. Lower pelvic pain- thinks possible UTI. 3. Rash under her breast. * HPI: G eneral: Rsh under bresat - comes and goes Brething meds help a little - but no last - no swelling in legs - ZAVALA getting worse - is fasitng so wiill check labs + UTI. * ROS: E ENT: hearing changes d enies. v isual changes d enies.?non-healing mouth sores d enies. s wollen glands or neck lumps d enies. h oarseness d enies. s ore throat d enies. d ifficulty swallowing d enies. n ose bleeds d enies. n stephanie congestion d enies. e ar ache d enies. e ar discharge?denies. r inging in ears d enies. l ight sensitivity d enies. e ye pain d enies. b lurring d enies. e ye irritation d enies. d ouble vision d enies.?vision loss d enies. G eneral/Constitutional: Sweats: D enies. F atigue d enies. S leep problems d enies. A norexia d enies. M alaise d enies. W eight loss d enies.?Fatigue or Weakness d enies. F ever or Chills d enies. C ardiovascular: Shortness of Breath w/lying flat d enies. L ightheadedness/dizziness d enies. C hest tightness/ heavy pressure d enies. S welling of legs, ankles, or feet d enies. W aking up with shortness of breath d enies. C hest pain denies. P alpitations d enies. W eight gain d enies. R espiratory: Chronic or frequent cough d enies. C oughing up blood?denies. D ifficulty breathing d enies. P roductive cough d enies. S noring?denies. S hortness of breath that awakens from sleep (PND) d enies. C hest pain d enies. S putum production d enies. W heezing d enies. M usculoskeletal: Joint pain d enies. J oint Fluid d enies. B ack pain d enies. K nee pain d enies. N rommel pain d enies. J oint Stiffness d enies. M uscle cramps d enies. W eakness of muscles d enies. A rthritis d enies. M uscle aches d enies. P ain in shoulder(s) d enies. S wollen joints d enies. * Medical History: D iabetes, Dizziness and giddiness, Gastro-esophageal reflux disease without esophagitis, Asthma, Hypercholesterolemia, Fibromyalgia, Nevus, Near syncope, Over weight, Neuropathy, diabetic, Other injury of muscle, fascia and tendon of lower back, initial encounter, Leg cramp, Tinea corporis, Dyshidrotic eczema, At risk for falls, Pain in right shoulder, Acute bronchitis, Acute cystitis, Meningioma, Plantar fasciitis, Knee pain, right, Edema leg, Arterio-venous malformation, Drug- induced myopathy, GERD (gastroesophageal reflux disease), Asthma, Osteopenia, Benign mammary dysplasia, Diverticular disease. * Surgical History: H ysterectomy , Breast Cyst removed , Bilateral Foot Surgery , Right Long Finger and ring finger 04/2023, Cardiac cath 12/17, Aorta Patch- stents to kidney and bowel . * Hospitalization/Major Diagno stic Procedure: s epsis 2019, A-fib 12/17, Aorta Patch 01/2024. * Family History: F ather: . M other: , diagnosed with Diabetes mellitus without mention of complication, type II or unspecified type, not stated as uncontrolled. B rother(s): alive, diagnosed with Diabetes mellitus without mention of complication, type II or unspecified type, not stated as uncontrolled. S on(s): alive. D aughter(s): alive. 4 brother(s) - healthy. 2 son(s) , 1 daughter(s) - healthy. . * Social History: T obacco Use: T obacco Use/Smoking P atient is a f ormer smoker W hen did you stop smoking? 0 02/24/2010 * Medications: T megan Daily(Tralokinumab-ldrm) 300 MG/2ML Solution Auto-injector as directed Subcutaneous , Taking Amiodarone HCl 200 MG Tablet 1 tablet Orally Once a day , Taking Carvedilol 6.25 MG Tablet 1 tablet with food Orally Twice a day , Taking Eliquis(Apixaban) 5 MG Tablet 1 tablet Orally bid , Taking Ezetimibe 10 MG Tablet TAKE 1 TABLET BY MOUTH DAILY , Taking Ferrous Sulfate 325 (65 Fe) MG Tablet 1 tablet Orally BID , Taking Isosorbide Mononitrate ER 30 MG Tablet Extended Release 24 Hour 1 tablet in the morning Orally Once a day , Taking Macrobid(Nitrofurantoin Monohyd Macro) 100 MG Capsule 1 capsule with food Orally every 12 hrs , Taking Meclizine HCl 25 MG Tablet 1 or 2 tablet as needed Orally TID PRN , Notes to Pharmacist: PRN, Taking Memantine HCl ER 28 MG Capsule Extended Release 24 Hour 1 capsule Orally Once a day , Taking Montelukast Sodium 10 MG Tablet 1 tablet Orally Once a day , Taking predniSONE 10 MG Tablet 1 tablet Orally once daily PRN , Taking Pyridium(Phenazopyridine HCl) 200 MG Tablet 1 tablet after meals Orally Three times a day , Taking rOPINIRole HCl 0.5 MG Tablet 1 tablet 1 to 3 hours before bedtime Orally at bedtime , Medication List reviewed and reconciled with the patient * Allergies: A spirin: Excessive Bleeding - Allergy - Criticality High, Atorvastatin Calcium, Demerol, Avelox, Cipro, Nubain, Phenergan, Cefdinir, Sulfa Antibiotics. Objective: * Vitals: W t:165.2lbs, Ht: 63 in, BP:138/66mm Hg, BMI:29.26Index, Ht-cm: 160.02 cm, Wt-k.93 kg. * Examination: P hysical Exam: GENERAL: w ell developed, well nourished, in no acute distress. HEAD: n ormocephalic/atraumatic. EYES: p upils equal, round and reactive to light, conjunctivae and sclerae normal. EARS: n o deformity or lesion of external ear, canals and TM appear normal bilaterally, TM's intact, not inflamed with normal light reflex, hearing grossly normal to conversational speech. NOSE: n o deformity, discharge, inflammation, or lesions.? MOUTH: m ucous membranes moist, normal oropharynx and posterior pharynx without lesions or exudates, tongue normal, dentition normal. NECK: n rommel supple, no masses or palpable cervical nodes, trachea midline, thyroid without nodules, masses, tenderness, or enlargement. CHEST: n o chest wall deformity, no chest wall tenderness.? LUNGS: n ormal respiratory effort and clear to auscultation, no wheezes, rales, or rhonchi, good air exchange. CARDIO: r egular rate and rhythm, normal S1 and S2, nor murmur, rub, or gallop. PULSES: n ormal capillary refill. ABDOMEN: s oft, non-distended, non-tender, no masses. MUSCULOSKELETAL: n o deformity or scoliosis noted, normal range of motion, joints normal, no erythema, edema, effusion, or ecchymosis. EXTREMITY: n o clubbing, cyanosis, edema, or deformity with normal ROM in both upper and lower bilateral extremities. NEUROLOGIC: g rossly normal. SKIN: n o rashes, ulcerations, or suspicious lesions. LYMPH NODES: n o cervical adenopathy, nodes normal. MENTAL STATUS: a lert and oriented x3, normal mood and affect. Assessment: * Assessment: 1. U TI (urinary tract infection) - N39.0 (Primary) 2 . A dvanced dementia - F03.90 3 . C hronic kidney disease, stage 3a - N18.31 4 . T inea corporis - B35.4 5 . D yspnea - R06.00 Plan: * Treatment: 2. A dvanced dementia I maging: XR CHEST 2 V Notes: memory part pretty stable no argument from 3. C hronic kidney disease, stage 3a I maging: XR CHEST 2 V Notes: checing uirn protien and bun creat today 4. T inea corporis Start Ketoconazole Cream, 2 %, 1 application, Externally, bid, 14 days, 60, Refills 11. I maging: XR CHEST 2 V Notes: ketoconazole 5. D yspnea I maging: XR CHEST 2 V * Labs: * L ab: UA DIP NONAUTO WO MICRO (21146) - IN OFFICE (Collection Date & Time - 08/16/2024) Value Reference Range C OLOR straw * C LARITY clear * G LUCOSE n * B ILIRUBIN n * K ETONE n * S PECIFIC GRAVITY 1.020 * B LOOD n * P H 5 * P ROTEIN trace * U ROBILINOGEN n * N ITRITE n * L EUKOCYTE ESTERASE ++ * Procedure Codes: 8 1002 URINALYSIS WO MICRO * Preventive Medicine: Screenings/Counseling: B IA ACTION PLAN Above Normal BMI Follow-up D ietary management education, guidance, and counseling * * Electronic signature of Enio Langley MD, [id number] on 08/16/2024 at 03:42 PM EDT Sign off status: Pending Visit Status: C HK (Check Out) * Provider: Toribio Langley (TTC)MD Date: 0 08/16/2024 Generated for Printi ng/Faxing/eTransmitting on: 08/16/2024 03:42 PM EDT History and Physical Notes * HPI (History of Present Illness) Category Sub-Category Detail Notes Category Not es General Rsh under bresat - comes and goes Brething meds help a little - but no last - no swelling in legs - ZAVALA getting worse - is fasitng so wiill check labs + UTI Examination Category Sub-Category Detail Notes Category Not es Physical Exam GENERAL: well developed, well nourished, in no acute distress HEAD: normocephalic/atraum atic EYES: pupils equal, round and reactive to light, conjunctivae and sclerae normal EARS: no deformity or lesi on of external ear, canals and TM appear normal bilaterally, TM's intact, not inflamed with normal light reflex, hearing grossly normal to conversational speech NOSE: no deformity, discha rge, inflammation, or lesions MOUTH: mucous membranes roberta st, normal oropharynx and posterior pharynx without lesions or exudates, tongue normal, dentition normal NECK: neck supple, no mass es or palpable cervical nodes, trachea midline, thyroid without nodules, masses, tenderness, or enlargement CHEST: no chest wall deform ity, no chest wall tenderness LUNGS: normal respiratory e ffort and clear to auscultation, no wheezes, rales, or rhonchi, good air exchange CARDIO: regular rate and rhy thm, normal S1 and S2, nor murmur, rub, or gallop PULSES: normal capillary ref ill ABDOMEN: soft, non-distended, non-tender, no masses RECTAL: MUSCULOSKELETAL: no deformity or scol iosis noted, normal range of motion, joints normal, no erythema, edema, effusion, or ecchymosis EXTREMITY: no clubbing, cyanosi s, edema, or deformity with normal ROM in both upper and lower bilateral extremities NEUROLOGIC: grossly normal SKIN: no rashes, ulceratio ns, or suspicious lesions LYMPH NODES: no cervical adenopat hy, nodes normal MENTAL STATUS: alert and oriented x 3, normal mood and affect
--- OUTSIDE RECORDS SUMMARY | 2024-08-16 15:42 | XMS_ITS | Clinical Summary ---
Author Organization [employer] [facility] Address [id number] [address] [id number] Care Team Providers Care Athletic Trainer Name Role Phone Velasquez Langley MD Primary Care Provider [phone] Allergies Active Allergy Reactions Criticality Noted Date Comments Moxifloxacin 10/15/2018 Ciprofloxacin 10/15/2018 Meperidine 10/15/2018 Nalbuphine 10/15/2018 Promethazine 10/15/2018 Bwyemun-Maw-Luh Reductase Inhibitors 10/15/2018 Sulfa (Sulfonamide Antibiotics) 09/25 Medications ezetimibe (ZETIA) 10 mg tablet Take 10 mg by mouth daily. Active irbesartan (AVAPRO) 300 mg tablet Take 300 mg by mouth nightly. Active metoprolol tartrate (LOPRESSOR) 50 mg tablet Take 100 mg by mouth 2 (two) times a day. Active Social History Tobacco Use Types Packs/Day Years Used Date Smoking Tobacco: Former Smokeless Tobacco: Never Childcare Answer Date Recorded Childcare Unknown 08/05/2018 Employment Answer Date Recorded Employment Unknown 08/05/2018 Purpose - Life Answer Date Recorded Purpose and direction in life Unknown Comments No Sex and Gender Information Value Date Recorded Sex Assigned at Not on file Legal Sex Female 11:42 AM EDT Gender Identity Not on file Sexual Orientation Not on file Last Filed Vital Signs Vital Sign Reading Time Taken Comments Blood Pressure 163/77 10/15/2018 10:41 PM EDT Pulse 66 10/15/2018 10:41 PM EDT Temperature 36.7 C (98 F) 10/15/2018 10:41 PM EDT Respiratory Rate 16 10/15/2018 10:41 PM EDT Oxygen Saturation 99% 10/15/2018 8:09 PM EDT Inhaled Oxygen Concentration - - Weight 74.8 kg (165 lb) 10/15/2018 7:26 PM EDT Height 162.6 cm (5' 4 ) 10/15/2018 7:26 PM EDT Body Mass Index 28.32 10/15/2018 7:26 PM EDT Plan of Treatment Health Maintenance Due Date Last Done Comments Depression Screening 1957 Tobacco Screening 1957 DTaP,Tdap and Td Vaccines (1 - Tdap) 05/23/1962 Zoster (Shingles) Vaccine (1 of 2) 05/23/1993 Fall Risk Screening 05/23/2008 Influenza Vaccine 10/25/2024 Medical Devices Not on file Insurance [employer] MED[employer]ARE Care Teams Athletic Trainer Relationship Specialty Start Date End Date Velasquez Langley MD PCP - General Family Medicine 10/15/18
--- OUTSIDE RECORDS SUMMARY | 2024-08-16 15:42 | XMS_ITS | Clinical Summary ---
Author Organization [facility] Address [address] [place] [address] Care Team Providers Care Heel Nail Rasper Name Role Phone Velasquez Langley MD Primary Care Provider [phone] Allergies Active Allergy Reactions Criticality Noted Date Comments Moxifloxacin Other 12/05/2023 Had to bring me back. Had to pump my heart Meperidine Anaphylaxis High 12/02/2023 Medications albuterol 90 mcg/actuation inhaler 2 puffs if needed. 04/08/19 24 Active ezetimibe (Zetia) 10 mg tablet Take 10 mg by mouth in the morning. Active memantine (Namenda XR) 28 mg capsule,sprinkle,E R 24hr Take 10 mg by mouth two times daily. Active rOPINIRole (Requip) 0.5 mg tablet Take 0.5 mg by mouth at bedtime. Active isosorbide mononitrate ER (Imdur) 30 mg 24 hr tablet Take 30 mg by mouth in the morning. Do not crush or chew. Active nitroglycerin (Nitrostat) 0.[address] 0.4 mg under the tongue every 5 (five) minutes if needed for chest pain. Active meclizine (Antivert) 25 mg tablet Take 50 mg by mouth if needed for dizziness. Active apixaban (Eliquis) 2.5 mg tabletIndications: V-tach (CMS/HCC) Take 1 tablet (2.5 mg) by mouth two times daily for 189 doses. 02/10/20 24 Active Additional Information Patient taking differently: 5 mgoral 2 times daily, Reported on 08/04/2024 tiotropium (Spiriva with HandiHaler) 18 mcg inhalation capsule inhale 1 capsule by inhalation route every day Inhalation Active ferrous sulfate 325 (65 Fe) MG tablet Take 325 mg by mouth 2 times daily. Active carvedilol (Coreg) 6.25 mg tabletIndications: V-tach (CMS/HCC) Take 1 tablet (6.25 mg) by mouth two times daily. 180 tablet 3 03/26/19 25 026 Active amiodarone (Pacerone) 200 mg tabletIndications: Paroxysmal atrial fibrillation (CMS/HCC) Take 1 tablet (200 mg) by mouth in the morning. 90 tablet 3 03/26/19 25 Active Adbry 300 mg/2 mL auto-injector Inject 300 mg under the skin every 14 (fourteen) days. 06/09/19 Active evolocumab (Repatha SureClick) 140 mg/mL pen injectorIndication s:Mixed hyperlipidemia Inject 1 mL under the skin every 14 (fourteen) days. 6 mL 3 07/27/19 Active metoprolol tartrate (Lopressor) 50 mg tablet Take 25 mg by mouth two times daily. 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 12/31/2023 Coronary artery disease invo lving [place] coronary artery of [place] heart without angina pectoris 12/31/2023 Osteoarthritis 12/05/2023 Diabetes mellitus 12/05/2023 History of urinary tract infection 12/05/2023 Bladder outlet obstruction 12/05/2023 Postinfective urethral stricture in female 12/04 Acute intractable headache 12/05/2023 Asthma 12/05/2023 Bladder infection 12/05/2023 Chronic obstructive pulmonary disease 12/05/2023 Dysuria 12/05/2023 Female cystocele 12/05/2023 Retention of urine 12/05/2023 Flank pain 12/05/2023 Gross hematuria 12/05/2023 Hypercholesterolemia 12/05/2023 Other specified postprocedural states 12/05/2023 Postoperative pain of extremity 12/05/2023 Right hand pain 12/05/2023 Stress incontinence of urine 12/05/2023 Urge incontinence of urine 12/05/2023 COPD without exacerbation 12/05/2023 Atrial fibrillation 12/05/2023 Acute respiratory failure with hypoxia NSVT (nonsustained ventricular tachycardia) 09/2023 Dyspnea on exertion 12/02/2023 Moderate malnutrition 10/15/2019 Hypokalemia 10/13/2019 Overview (12/05/2023): Replacement after MRI Aneurysm of infrarenal abdominal aorta 0 Resolved Problems Problem Noted Date Diagnosed Date Resolved Date V-tach 02/02/2024 06/18/2024 Unstable angina 12/05/2023 12/31/2023 Hypertension 12/05/2023 06/18/2024 Right renal artery stenosis 10/13/2019 06/18/2024 Secondary hypertension 10/13/201912/30 Hyperlipemia 06/28/2017 12/31/2023 Hypertensive urgency 06/28/2017 025 Palpitation 06/28/2017 06/18/2024 Encounters Date Type Department Care Team Description 08/06/2024 Telephone [facility] [address] [place] [address] Deepa Wilcox MA scheduling surgery 08/04/2024 3:00 PM EDT Follow-Up [facility] Vascular and Endovascular Surgery [address] [place] [address] Gilberto Whitten MD Superior mesenteric artery stenosis (Primary Dx); Infrarenal abdominal aortic aneurysm (AAA) without rupture; Celiac artery stenosis; AVN (avascular necrosis of bone) ([facility]) 08/02/2024 Orders Only [facility] [address] [place] [address] Renetta Lainez MA 07/29/2024 Telephone [facility] [address] [place] [address] Kristie Chow MA 07/27/2024 Orders Only [facility] [address] [place] [address] Ayad Bullard MD 07/26/2024 Orders Only [facility] [address] [place] [address] Renetta Lainez MA Mixed hyperlipidemia 07/22/2024 1:35 PM EDT Lab [facility] Outpatient Draw Station [address] [place] [phone] Superior mesenteric artery stenosis; Infrarenal abdominal aortic aneurysm (AAA) without rupture; Mixed hyperlipidemia 07/22/2024 1:01 PM EDT - 07/22/2024 11:59 PM EDT Hospital Encounter [facility] CT Imaging [address] [place] [address] Superior mesenteric artery stenosis; Infrarenal abdominal aortic aneurysm (AAA) without rupture Discharge Disposition: Home or Self Care () 06/18/2024 11:00 AM EDT Office Visit [facility] [address] [place] [address] Bhavesh Fulton MD Chronic diastolic heart failure (CMS/HCC) (Primary Dx); Dyspnea on exertion; Coronary artery disease involving [place] coronary artery of [place] heart without angina pectoris; Paroxysmal atrial fibrillation (CMS/HCC); On amiodarone therapy; NSVT (nonsustained ventricular tachycardia) (CMS/HCC); Abdominal aortic aneurysm (AAA) without rupture, unspecified part; Mesenteric artery stenosis; Benign hypertensive heart disease without congestive heart failure; Mixed hyperlipidemia; Hypercholesterolemia; Type 2 diabetes mellitus without complication, without long-term current use of insulin (CMS/HCC) 06/07/2024 1:30 PM EDT Follow-Up [facility] Vascular and Endovascular Surgery [address] [place] [phone] Celena Chow PA-C Superior mesenteric artery stenosis (Primary Dx); Infrarenal abdominal aortic aneurysm (AAA) without rupture; Celiac artery stenosis 06/07/2024 Telephone [facility] Cardiology Clinic [address] [place] [phone] Rosie Weir MA 06/06/2024 12:05 AM EDT - 06/06/2024 11:59 PM EDT Hospital Encounter [facility] Radiology External Films [address] [place] [address] Discharge Disposition: Home or Self Care (01) 06/06/2024 - 06/06/2024 12:04 AM EDT Hospital Encounter [facility] Radiology External Films [address] [place] [address] Discharge Disposition: Home or Self Care (01) 05/31/2024 11:25 AM EDT - 05/31/2024 11:59 PM EDT Hospital Encounter [facility] Vascular Ultrasound Imaging [address] [place] [address] Superior mesenteric artery stenosis Discharge Disposition: Home or Self Care () from Last 3 Months Social History Tobacco Use Types Packs/Day Years Used Date Smoking Tobacco: Former Cigarettes Smokeless Tobacco: Never Tobacco Cessation:Counseling Given: Yes Alcohol Use Standard Drinks/Week Comments Never 0 (1 standard drink = 0.6 oz pur e alcohol) [facility] Utilities Answer Date Recorded In the past 12 months has [place], gas, oil, or water [employer] threatened to shut off services in your [...] 01/27/2024 How often do you attend chur ch or lutheran services? Never 01/27/2024 Do you belong to any clubs o r organizations such as amish groups, unions, fraternal or athletic groups, or [...] Recorded Patient Health Questionnaire-2 Score 0 05/11/2024 [facility] of Occupat ional Health - Occupational Stress [...] were you homeless or living in a custodial (including now)? No 02/02/2024 Hunger Vital Sign [...] Heterosexual or Straight 04/2023 11:08 AM EST Last Filed Vital Signs Vital Sign Reading Time Taken Comments Blood Pressure 174/76 08/04/2024 3:05 PM EDT Pulse 52 08/04/2024 3:05 PM EDT Temperature 36.5 C (97.7 F) 04/02/2024 10:54 AM EST Respiratory Rate 16 08/04/2024 3:05 PM EDT Oxygen Saturation 100% 08/04/2024 3:05 PM EDT Inhaled Oxygen Concentration - - Weight 73.9 kg (163 lb) 08/04/2024 3:05 PM EDT Height 160 cm (5' 3 ) 08/04/2024 3:05 PM EDT Body Mass Index 28.87 08/04/2024 3:05 PM EDT Plan of Treatment Health Maintenance Due Date Last Done Comments Medicare Annual Wellness (AWV) 1945 Diabetes: Retinopathy Screening 05/23/1953 Adult Tetanus 05/23/1965 Zoster Vaccines (1 of 2) 05/23/1993 Pneumococcal Vaccine: 50+ Years (2 of 2 - PCV) 11/18/2020 11/19/2019 COVID-19 Vaccine ( - season) 2023 12/20/2020, 05/19/2020, 04/21/2020, Additional history exists Diabetes: Hemoglobin A1C 03/06/2024 12/05/2023 Influenza Vaccine (Season Ended) 2024 11/29/2019 Depression Screening 05/11/2025 05/11/2024 Fall Risk Screening 05/11/2025 05/11/2024 HIB Vaccines Aged Out No longer eligi ble based on patient's age to complete this topic HPV Vaccines Aged Out No longer eligi ble based on patient's age to complete this topic IPV Vaccines Aged Out No longer eligi ble based on patient's age to complete this topic Meningococcal B Vaccine Aged Out No l onger eligible based on patient's age to complete this topic Meningococcal Vaccine Aged Out No jef connie eligible based on patient's age to complete this topic Rotavirus Vaccines Aged Out No longer eligible based on patient's age to complete this topic Medical Devices Implanted Type Area Elastic Attacher Overlock Device Identifier Shelf Expiration Date Model / Serial / Lot Vera-Fx Head Baggage Porter And Endoanchor Cassette Implanted:Qty : 1 on 01/28/2024 by Sandeep Wang MD at [facility] [place] N/A: Aorta Med[employer] [id number] 11/17/2025 -85 / / [id number] Description:7 IMPLANTED, 10 COME IN A BOX Endurant Stent Graft System Implanted:Qty : 1 on 01/28/2024 by Sandeep Wang MD at [facility] Graft N/A: Aorta Medtronic [id number] 10/15/2025 [id number] / [id number] / Endurant Ii Stent Graft Implanted:Qty : 1 on 01/28/2024 by Sandeep Wang MD at [facility] Graft N/A: Arterial Medtronic [id number] 07/30/2025 [id number] [id number] / [id number] / Description:LEFT COMMON FRANSISCA C Endurant Ii Stent Graft Implanted:Qty : 1 on 01/28/2024 by Sandeep Wang MD at [facility] Graft N/A: Arterial Medtronic [id number] 11/17/2025 [id number] [id number] / [id number] / Description:RIGHT COMMON CLEMENT AC Stent,Express 2,Bili,6x17x1 35 - [id number] Implanted:Qty : 1 on 02/05/2024 by Gilberto Whitten MD at [facility] Stent N/A: Abdomen [employer] [id number] 01/27/2026 [id number] / / [id number] Stent,Expr Bili,Sd,6.0x1 8x150 - [id number] Implanted:Qty : 1 on 02/05/2024 by Gilberto Whitten MD at [facility] Stent N/A: Abdomen [employer]SC[employer] ED [id number] 06/05/2026 [id number] / / [id number] Procedures Procedure Name Priority Date/Time Associated Diagnosis Comments AST Routine 07/27/2024 11:31 AM EDT ALT Routine 07/27/2024 11:31 AM EDT LIPID PANEL Routine 07/27/2024 11:31 AM EDT CTA ABDOMEN PELVIS W IV CONTRAST Routine 07/22/2024 3:12 PM EDT Superior mesenteric artery stenosis Infrarenal abdominal aortic aneurysm (AAA) without rupture ALT Routine 07/22/2024 1:17 PM EDT Mixed hyperlipidemia AST Routine 07/22/2024 1:17 PM EDT Mixed hyperlipidemia LIPID PANEL Routine 07/22/2024 1:17 PM EDT Mixed hyperlipidemia CREATININE, SERUM Routine 07/22/2024 1:1 7 PM EDT Superior mesenteric artery stenosis Infrarenal abdominal aortic aneurysm (AAA) without rupture US TRANSFER OF OUTSIDE FILMS Routine 06/06/2024 12:[address] TRANSFER OF OUTSIDE FILMS Routine 06/06/2024 12:00 AM EDT [facility] US MESENTERIC ARTERY DUPLEX COMPLETE Routine 05/31/2024 12:57 PM EDT Superior mesenteric artery stenosis HEMOGLOBIN A1C Add-On 12/05/2023 3:35 AM EDT from Last 3 Months or Most Recently Relevant to Health Maintenance Results * ALT (07/27/2024 11:31 AM EDT) Only the most recent of2 resultswithin the time period is included. Blood Venous blood specimen / Unknown Historical Provider MD LAB BLOOD ORDERABLES Margarita l Result * AST (07/27/2024 11:31 AM EDT) Only the most recent of2 resultswithin the time period is included. Blood Venous blood specimen / Unknown [facility] Provider MD LAB BLOOD ORDERABLES Margarita l Result * Lipid panel (07/27/2024 11:31 AM EDT) Only the most recent of2 resultswithin the time period is included. Blood Venous blood specimen / Unknown [facility] Provider MD LAB BLOOD ORDERABLES Margarita l Result * CTA Abdomen Pelvis W IV Contrast (07/22/2024 3:12 PM EDT) Anatomical Region Laterality Modality Body, Pelvis, Abdomen Computed T omography 07/23/2024 12:4 6 PM EDT Impressions 07/23/2024 1:01 PM EDT 1. Aortobiiliac endograft. Similar or slightly decreased size of the excluded aortic aneurysm. No evidence for endoleak. 2. 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 Correlate with recent Doppler.. 3. Femoral head AVN. All CT scans at this facility use dose modulation, iterative reconstruction, and/or weight based dosing when appropriate to reduce radiation dose to as low as reasonably achievable. Electronically signed: KEENAN RODRGIUEZ. Narrative 07/23/2024 1:01 PM EDT CLINICAL INFORMATION: Mesenteric ischemia/stenosis. COMPARISON: 02/03/2024 TECHNIQUE: [...] femoral head AVN. No acute osseous abnormality. Procedure Note Keenan Rodriguez MD - 07/23/2024 CLINICAL INFORMATION: Mesenteric ischemia/stenosis. COMPARISON: 02/03/2024 TECHNIQUE: Multidetector CT Angiogram performed with IV contrast through the abdomenand pelvis including 3-D Maximum intensity projection reconstructionsconstructed under concurrent physician supervision on a independent workstation. 3 Dimages obtained to improve visualization of vascular detail. Automated exposurecontrol was utilized. FINDINGS: VASCULAR FINDINGS: Aorta: Postoperative changes of aortobiiliac stent graft. Excludedaneurysm sac measures up to 5.8 cm, previously 6.1 cm. Resolution of previously seengas. No evidence for endoleak. Celiac artery: Suspect at least moderate in-stent restenosisproximally. Otherwise patent. Superior mesenteric artery: Suspect at least moderate in-stentrestenosis, otherwise distally patent. Renal arteries: Mild stenosis proximally of the renal arteriesbilaterally patent. Inferior mesenteric artery: Occluded proximally. Right iliac: Patent stent. Moderate stenosis at the proximal anteriordivision internal iliac artery. Patent external iliac artery. Left iliac: Patent stent. Moderate multifocal stenosis of the internaliliac artery. Mild stenosis of the distal external iliac artery and commonfemoral artery Venous findings: Patent portal vein. Patent cava. Patent SMV. NONVASCULAR FINDINGS: LOWER CHEST: No pericardial or pleural effusion. Small hiatal hernia. LIVER AND BILIARY: Within normal limits. No suspicious lesion. PANCREAS: No acute abnormality. SPLEEN: No acute abnormality. ADRENALS: No acute abnormality. KIDNEYS, URETERS, AND BLADDER: Mild cortical thinning, likely related tochronic renal vascular disease. No suspicious lesion or hydronephrosis. Normalbladder. GI TRACT AND PERITONEUM: Diverticulosis without diverticulitis. Noobstruction. No free fluid or free air. LYMPH NODES: Within normal limits. REPRODUCTIVE ORGANS: No acute abnormality. MUSCULOSKELETAL: Bilateral femoral head AVN. No acute osseousabnormality. IMPRESSION: 1.Aortobiiliac endograft. Similar or slightly decreased size of the excluded aortic aneurysm. No evidence for endoleak. 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 Correlate with recent Doppler.. 3.Femoral head AVN. All CT scans at this facility use dose modulation, iterativereconstruction, and/or weight based dosing when appropriate to reduce radiation dose to aslow as reasonably achievable. Electronically signed: KEENAN RODRIGUEZ. Celena Chow PA-C [facility] CT PROCEDURES Final Res ult * (ABNORMAL) Creatinine, Serum (07/22/2024 1:17 PM EDT) Creatinine 1.15 0.60 - 1.20 mg/dL 07/22/2024 2:37 PM EDT [facility]) eGFR 47.9(L) >60.0 mL/min/1. 73m*2 07/22/2024 2:37 PM EDT [facility] Comment:[facility] s estimated glomerular filtration rate (eGFR) will no longer include consideration of race in its calculation. The [employer] s eGFR Task Force developed new recommendations for [...] disproportionately affect any one group of individuals. Blood Venous blood specimen / Unknown Venipuncture / Unknown 07/22/2024 1:17 PM EDT 07/22/2024 1:40 PM EDT us Celena Chow PA-C LAB BLOOD ORDERABLES Final Result Performing Organization Address City/[facility] Co de Phone Number [facility] [address] [place] [address] * US transfer of outside films (06/06/2024 12:05 AM EDT) Narrative IMAGING - 06/06/2024 1:40 PM EDT This order has been auto-finalized and does not contain a result. Gilberto Whitten MD IMG US PROCEDURES Final Result Performing Organization Address [facility] Co de Phone Number IMAGING * CT transfer of outside films (06/06/2024 12:00 AM EDT) Narrative IMAGING - 06/06/2024 1:39 PM EDT This order has been auto-finalized and does not contain a result. us Gilberto Whitten MD IMG CT PROCEDURES Final Result Performing Organization Address [facility] Phone Number [facility] * USV Arterial Mesenteric Duplex (05/31/2024 12:57 PM EDT) Anatomical Region Laterality Modality Abdomen Ultrasound 05/31/2024 12:3 3 PM EDT Impressions 06/01/2024 5:26 PM EDT Bilateral: Nonvisualization of ELVIRA due to endograft material and placement. Celiac appeared with >250 cm/sec PSV with associated turbulence noted consistent with >70 % stenosis. Superior mesenteric artery appeared with >275 cm/sec PSV with associated turbulence noted consistent with >70 % stenosis. Hepatic and splenic arteries appeared patent and presented with normal spectral Doppler velocities. Aorta endograft limbs appear patent with spectral Doppler waveforms. Bilateral: Nonvisualization of ELVIRA due to endograft material and placement. Celiac appeared with >250 cm/sec PSV with associated turbulence noted consistent with >70 % stenosis. Superior mesenteric artery appeared with >275 cm/sec PSV with associated turbulence noted consistent with >70 % stenosis. Hepatic and splenic arteries appeared patent and presented with normal spectral Doppler velocities. Aorta endograft limbs appear patent with spectral Doppler waveforms. Conclusions: Signficant stenosis of the superior mesenteric and celiac arteries Narrative 06/01/2024 5:26 PM EDT Procedure: Using ultrasound, color Doppler and velocity measurement of the celiac, superior mesenteric artery, proximally, middle and distal part, inferior mesenteric arteries, splenic and hepatic arteries were evaluated. Procedure: Using ultrasound, color Doppler and velocity measurement of the celiac, superior mesenteric artery, proximally, middle and distal part, inferior mesenteric arteries, splenic and hepatic arteries were evaluated. Procedure Note Gilberto Whitten MD - 06/01/2024 Procedure: Using ultrasound, color Doppler and velocity measurement of theceliac, superior mesenteric artery, proximally, middle and distal part,inferior mesenteric arteries, splenic and hepatic arteries were evaluated. Procedure: Using ultrasound, color Doppler and velocity measurement of theceliac, superior mesenteric artery, proximally, middle and distal part,inferior mesenteric arteries, splenic and hepatic arteries were evaluated. IMPRESSION: Bilateral: Nonvisualization of ELVIRA due to endograft material andplacement. Celiac appeared with >250 cm/sec PSV with associated turbulencenoted consistent with >70 % stenosis. Superior mesenteric artery appearedwith >275 cm/sec PSV with associated turbulence noted consistent with >70% stenosis. Hepatic and splenic arteries appeared patent and presentedwith normal spectral Doppler velocities. Aorta endograft limbs appearpatent with spectral Doppler waveforms. Bilateral: Nonvisualization of ELVIRA due to endograft material andplacement. Celiac appeared with >250 cm/sec PSV with associated turbulencenoted consistent with >70 % stenosis. Superior mesenteric artery appearedwith >275 cm/sec PSV with associated turbulence noted consistent with >70% stenosis. Hepatic and splenic arteries appeared patent and presentedwith normal spectral Doppler velocities. Aorta endograft limbs appearpatent with spectral Doppler waveforms. Conclusions: Signficant stenosis of the superior mesenteric and celiacarteries us Celena Chow PA-C IMG CV VASCULAR PROCEDURES Final Result * Hemoglobin A1c (12/05/2023 3:35 AM EDT) Hemoglobin A1C 5.3 4.0 - 6.0 % 12/05/2023 10:16 AM EDT [facility] Estimated Average Glucose 105 mg/dL 12/05/2023 10:16 AM EDT [facility] ([facility]) Blood Venous blood specimen / Unknown Arterial Line / Unknown 12/05/2023 3:35 AM EDT 12/05/2023 4:04 AM EDT us Daniela Van MD LAB BLOOD ORDERABLES Final Resul t [facility] [address] [place], [place] [id number] from Last 3 Months or Most Recently Relevant to Health Maintenance Insurance [place] [address] Advance Directives * Full Code (Latest Code Status on File) Date Activated Date Inactivated Comments 02/02/2024 6:08 AM 02/12/2024 1:43 PM * Full Code Date Activated Date Inactivated Comments 01/27/2024 5:00 PM 01/31/2024 2:34 PM * Full Code Date Activated Date Inactivated Comments 12/05/2023 2:56 AM 12/06/2023 2:19 PM Care Teams Heel Nail Rasper Relationship Specialty Start Date End Date Velasquez Langley MD [address] [facility] [place] [address] PCP - General 12/02/23
--- OUTSIDE RECORDS SUMMARY | 2024-08-16 15:42 | XMS_ITS | Referral Summary ---
Author Organization [facility] Address [address] [place] [address] Care Team Providers Care Coordinator Cardiopulmonary Services Name Role Phone Velasquez Langley MD Primary Care Provider Encounters Date Type Department Care Team Description 08/06/2024 Telephone [facility] Endovascular Surgery [address] [place] [phone] Deepa Wilcox MA scheduling surgery 08/04/2024 3:00 PM EDT Follow-Up [facility] Surgery [address] [place] [address] Gilberto Whitten MD Superior mesenteric artery stenosis (Primary Dx); Infrarenal abdominal aortic aneurysm (AAA) without rupture; Celiac artery stenosis; AVN (avascular necrosis of bone) ([facility]/HCC) 08/02/[address] [facility] [address] [place] [address] Renetta Lainez MA 07/29/[address] [facility] [address] [place] [address] Kristie Chow MA 07/27/2024 Orders Only [facility] [address] [place] [address] Ayad Bullard MD 07/26/[address] [facility] [address] [place] [address] Renetta Lainez MA Mixed hyperlipidemia 07/22/2024 1:35 PM EDT Lab [facility] Outpatient Draw Station [address] [place] [phone] Superior mesenteric artery stenosis; Infrarenal abdominal aortic aneurysm (AAA) without rupture; Mixed hyperlipidemia 07/22/2024 1:01 PM EDT - 07/22/2024 11:59 PM EDT Hospital Encounter [facility] CT Imaging [address] [place] [phone] Superior mesenteric artery stenosis; Infrarenal abdominal aortic aneurysm (AAA) without rupture Discharge Disposition: Home or Self Care () 06/18/2024 11:00 AM EDT Office Visit [facility] [address] [place] [address] Bhavesh Fulton MD Chronic diastolic heart failure (CMS/HCC) (Primary Dx); Dyspnea on exertion; Coronary artery disease involving snoqualmie coronary artery of s[place]qualmie heart without angina pectoris; Paroxysmal atrial fibrillation (CMS/HCC); On amiodarone therapy; NSVT (nonsustained ventricular tachycardia) (CMS/HCC); Abdominal aortic aneurysm (AAA) without rupture, unspecified part; Mesenteric artery stenosis; Benign hypertensive heart disease without congestive heart failure; Mixed hyperlipidemia; Hypercholesterolemia; Type 2 diabetes mellitus without complication, without long-term current use of insulin (CMS/HCC) 06/07/2024 Telephone [facility] [address] [place] [phone] Rosie Weir MA 06/07/2024 1:30 PM EDT Follow-Up [facility] Endovascular Surgery [address] [place] [address] Celena Chow PA-C Superior mesenteric artery stenosis (Primary Dx); Infrarenal abdominal aortic aneurysm (AAA) without rupture; Celiac artery stenosis 06/06/2024 12:05 AM EDT - 06/06/2024 11:59 PM EDT Hospital Encounter [facility] Radiology External Films [address] [place] [phone] Discharge Disposition: Home or Self Care () 06/06/2024 - 06/06/2024 12:04 AM EDT Hospital Encounter [facility] Radiology External Films [address] [place] [address] Discharge Disposition: Home or Self Care (01) 05/31/2024 11:25 AM EDT - 05/31/2024 11:59 PM EDT Hospital Encounter [facility] Vascular Ultrasound Imaging [address] [place] [address] Superior mesenteric artery stenosis Discharge Disposition: Home or Self Care () from Last 3 Months Allergies Active Allergy Reactions Criticality Noted Date [...] two times daily for 189 doses. 02/10/20 Active Additional Information Patient taking differently: 5 [...] the skin every 14 (fourteen) days. 06/09/19 25 Active evolocumab (Repatha SureClick) 140 mg/mL pen [...] failure 12/31/2023 Coronary artery disease invo lving snoqualmie coronary artery of [place] heart without angina pectoris 12/31/2023 Osteoarthritis 12/05/2023 [...] Hypertensive urgency 06/28/2017 025 Palpitation 06/28/2017 06/18/2024 Social History Tobacco Use Types Packs/Day Years Used Date Smoking Tobacco: Former Cigarettes Smokeless Tobacco: Never Tobacco Cessation:Counseling Given: Yes Alcohol Use Standard Drinks/Week Comments Never 0 (1 standard drink = 0.6 oz pur e alcohol) [facility] Utilities Answer Date Recorded In the past 12 months has e electric, gas, oil, or water [employer] threatened to shut off services in your [...] often do you attend chur ch or cheondoism services? Never 01/27/2024 Do you belong to any clubs o r organizations such as cheondoism groups, unions, fraternal or athletic groups, or [...] Recorded Patient Health Questionnaire-2 Score 0 05/11/2024 [facility] [place] of Occupat ional Health - Occupational Stress [...] any time in the past 12 m [facility], were you homeless or living in a [...] 08/04/2024 3:05 PM EDT Plan of Treatment Not on file Medical Devices Implanted Type Area Livestock Inspector Device Identifier Shelf Expiration Date Model / Serial / Lot Vera-Fx Crm Analyst And Endoanchor Cassette Implanted:Qty : 1 on 01/28/2024 by Sandeep Wang MD at [facility] Trufant N/A: Aorta Medtronic [id number] 11/17/2025 -85 / / [id number] Description:7 IMPLANTED, 10 COME IN A BOX Endurant Stent Graft System Implanted:Qty : 1 on 01/28/2024 by Sandeep Wang MD at [facility] Graft N/A: Aorta Medtronic [id number] 10/15/2025 [id number] [id number] / [id number] / Endurant Ii Stent Graft Implanted:Qty : 1 on 01/28/2024 by Sandeep Wang MD at The [facility] Graft N/A: Arterial Medtronic [id number] 07/30/2025 [id number] [id number] / [id number] / Description:LEFT COMMON FRANSISCA C Endurant Ii Stent Graft Implanted:Qty : 1 on 01/28/2024 by Sandeep Wang MD at [facility] Graft N/A: Arterial Medtronic [id number] 11/17/2025 [id number] [id number] / [id number] / Description:RIGHT COMMON CLEMENT AC Stent,Express 2,Bili,6x17x1 35 - [id number] Implanted:Qty : 1 on 02/05/2024 by Gilberto Whitten MD at [facility] Stent N/A: Abdomen [place] [employer] [id number] 01/27/2026 [id number] / / [id number] Stent,Expr Bili,Sd,6.0x1 8x150 - [id number] Implanted:Qty : 1 on 02/05/2024 by Gilberto Whitten MD at [facility] Stent N/A: Abdomen [employer]SC[employer] ED [id number] 06/05/2026 [id number] / / [id number] Procedures Procedure Name Priority Date/Time Associated Diagnosis [...] OUTSIDE FILMS Routine 06/06/2024 12:00 AM EDT VASC US MESENTERIC ARTERY DUPLEX COMPLETE Routine 05/31/2024 [...] included. Blood Venous blood specimen / Unknown [facility] Provider MD LAB BLOOD ORDERABLES Margarita l [...] low as reasonably achievable. Electronically signed: KEENAN RODRIGUEZ. Narrative 07/23/2024 1:01 PM EDT CLINICAL INFORMATION: [...] as reasonably achievable. Electronically signed: KEENAN RODRIGUEZ. us Celena Chow PA-C IMG CT PROCEDURES Final Res ult * (ABNORMAL) Creatinine, Serum (07/22/2024 1:17 PM EDT) Creatinine 1.15 0.60 - 1.20 mg/dL 07/22/2024 2:37 PM EDT [facility] ([place]) eGFR 47.9(L) >60.0 mL/min/1. 73m*2 07/22/2024 2:37 PM EDT [facility] ([place]) Comment:[facility] s estimated glomerular filtration rate (eGFR) [...] Chow PA-C LAB BLOOD ORDERABLES Final Result [facility] ([place]) [address] [place] [address] * US transfer of outside films (06/06/2024 12:05 AM EDT) Narrative IMAGING - 06/06/2024 1:40 PM EDT This order has been auto-finalized and does not contain a result. us Gilberto Whitten MD IMG US PROCEDURES Final Result IMAGING * CT transfer of outside films (06/06/2024 12:00 AM EDT) Narrative IMAGING - 06/06/2024 1:39 PM EDT This order has been auto-finalized and does not contain a result. Gilberto Whitten MD IMG CT PROCEDURES Final Result IMAGING * USV Arterial Mesenteric Duplex (05/31/2024 [...] stenosis of the superior mesenteric and celiacarteries Celena Chow PA-C IMG CV VASCULAR PROCEDURES Final Result * Hemoglobin A1c (12/05/2023 3:35 AM EDT) Hemoglobin A1C 5.3 4.0 - 6.0 % 12/05/2023 10:16 AM EDT [facility] ([facility]) Estimated Average Glucose 105 mg/dL 12/05/2023 10:16 AM EDT [facility] ([facility]) Blood Venous blood specimen / Unknown Arterial Line / Unknown 12/05/2023 3:35 AM EDT 12/05/2023 4:04 AM EDT Daniela Van MD LAB BLOOD ORDERABLES Final Resul t [facility] ([facility]) [address] [place] [address] from Last 3 Months or Most Recently Relevant to Health Maintenance Insurance [employer] MEDICARE Member Subscriber Plan / Payer (Ef fective 2022-Present) Name:Shayy Johnson Relation to Subscriber:Self Name:Shayy Johnson Payer ID:[id number] (NAIC) Type:Not on file Address: [place] [id number] Advance Directives * Full Code (Latest Code Status on File) Date Activated Date Inactivated Comments 02/02/2024 6:08 AM 02/12/2024 1:43 PM * Full Code Date Activated Date Inactivated Comments 01/27/2024 5:00 PM 01/31/2024 2:34 PM * Full Code Date Activated Date Inactivated Comments 12/05/2023 2:56 AM 12/06/2023 2:19 PM Care Teams Coordinator Cardiopulmonary Services Relationship Specialty Start Date End Date Velasquez Langley MD [address] [facility] [place] [place] [address] PCP - General 12/02/23
--- OUTSIDE RECORDS SUMMARY | 2024-08-16 15:42 | XMS_ITS | Encounter Summary ---
Author Organization [facility] Address [address] [place] [address] Care Team Providers Care Instructional Systems Designer Name Role Phone Velasquez Langley MD Primary Care Provider [phone] Encounter Details Date Type Department Care Team (Late st Contact Info) Description 08/02/2024 Orders Only [facility] at [facility] [address] [place] [address] Renetta Lainez MA Social History Tobacco Use Types Packs/Day Years Used Date Smoking Tobacco: Former Cigarettes Smokeless Tobacco: Never Alcohol Use Standard Drinks/Week Comments Never 0 (1 standard drink = 0.6 oz pur e alcohol) [facility] Utilities Answer Date Recorded In the [...] often do you attend chur ch or yarsanism services? Never 01/27/2024 Do you belong to any clubs o r organizations such as roman catholic groups, unions, fraternal or athletic groups, or [...] Recorded Patient Health Questionnaire-2 Score 0 05/11/2024 [facility] of Occupat ional Health - Occupational Stress [...] any time in the past 12 m [facility], were you homeless or living in a assisted (including now)? No 02/02/2024 Hunger Vital Sign [...] AM EST documented as of this encounter Plan of Treatment Not on file documented as of this encounter Visit Diagnoses Not on filedocumented in this encounter Care Teams Instructional Systems Designer Relationship Specialty Start Date End Date Velasquez Langley MD [address] [facility] [place] [address] PCP - General 12/02/23 documented as of this encounter
--- OUTSIDE RECORDS SUMMARY | 2024-08-16 15:42 | XMS_ITS | Encounter Summary ---
Author Organization [facility] Address [address] [place] [address] Care Team Providers Care Delphi Developer Name Role Phone Velasquez Langley MD Primary Care Provider [phone] Reason for Visit * Reason Onset Date Comments scheduling surgery 08/06/2024 Encounter Details Date Type Department Care Team (Late st Contact Info) Description 08/06/2024 Telephone [facility] Vascular and Endovascular Surgery [address] [place] [address] Deepa Wilcox ONESIMO scheduling surgery Social History Tobacco Use Types Packs/Day Years Used Date Smoking Tobacco: Former Cigarettes Smokeless Tobacco: Never Alcohol Use Standard Drinks/Week Comments Never 0 (1 standard drink = 0.6 oz pur e alcohol) [facility] Utilities Answer Date Recorded In the past 12 months has [facility] [employer], gas, oil, or water [employer] threatened to shut off services in your [...] often do you attend chur ch or protestant services? Never 01/27/2024 Do you belong to any clubs o r organizations such as alevism groups, unions, fraternal or athletic groups, or [...] Recorded Patient Health Questionnaire-2 Score 0 05/11/2024 [facility] of Occupat ional Health [...] time in the past 12 m [facility], were you homeless or living in a fci (including now)? No 02/02/2024 Hunger Vital Sign Answer Date Recorded Within the past 12 months, y ou worried that your food would run out before you got the money to buy more. Never true 02/02/20 Within the past 12 months, t he [...] AM EST documented as of this encounter Miscellaneous Notes * Telephone Encounter - Deepa Wilcox MA - 08/06/2024 1:33 PM EDT Called and left a message for patient to call the office to schedule documented in this encounter Plan of Treatment Not on file documented as of this encounter Visit Diagnoses Not on filedocumented in this encounter Care Teams Delphi Developer Relationship Specialty Start Date End Date Velasquez Langley MD [address] [facility] [place] [address] PCP - General 12/02/23 documented as of this encounter
--- OUTSIDE RECORDS SUMMARY | 2024-08-16 15:42 | XMS_ITS | Encounter Summary ---
Author Organization [facility] Address [address] [place] [address] Care Team Providers Care Drapery Sewer Hand Name Role Phone Velasquez Langley MD Primary Care Provider [phone] Encounter Details Date Type Department Care Team (Late Contact Info) Description 08/23/2022 Abstract [facility] [address] [facility] [address] [place] [address] Althea Red MD [address] [facility] [address] [place] [address] Social History Tobacco Use Types Packs/Day Years Used Date Smoking Tobacco: Former Cigarettes Smokeless Tobacco: Never Tobacco Cessation:Counseling Given: Not Answered Comments:Last smoked: 10-15 years Comments Unknown Sex and Gender Information Value Date Recorded Sex Assigned at Not on file Legal Sex Female 7:09 PM EDT Gender Identity Not on file Sexual Orientation Not on file documented as of this encounter Plan of Treatment Upcoming Encounters Date Type Department Care Team (Late Contact Info) Description 08/24/2024 4:00 PM EDT Office Visit [facility] [address] [facility] [address] [place] [address] Althea Red MD [address] [facility] [address] [place] [address] documented as of this encounter Visit Diagnoses Not on filedocumented in this encounter Care Teams Drapery Sewer Hand Relationship Specialty Start Date End Date Velasquez Langley MD PCP - General Family Medicine 01/06/23 documented as of this encounter
--- OUTSIDE RECORDS SUMMARY | 2024-08-16 15:42 | XMS_ITS | Clinical Summary ---
Author Organization [facility] Address [address] [place] [address] Care Team Providers Care Delivery Truck Driver Name Role Phone Velasquez Langley MD Primary Care Provider [phone] Allergies Active Allergy Reactions Criticality Noted Date Comments Moxifloxacin Anaphylaxis High 06/27/2017 Ciprofloxacin 06/27/2017 Meperidine Anaphylaxis High 06/27/2017 Nalbuphine 06/27/2017 Promethazine 06/27/2017 Statins 06/27/2017 Sulfa Antibiotics 06/27/2017 Adhesive Tape 06/27/2017 Medications ezetimibe (ZETIA) 10 MG tablet Take 10 mg by mouth nightly Active aspirin 81 MG chewable tablet Take 1 tablet by mouth daily 30 tablet 3 10/16/2019 Active hydrALAZINE (APRESOLINE) 100 MG tablet Take 1 tablet by mouth every 8 hours 90 tablet 3 10/15/2019 Active lisinopril (PRINIVIL;ZESTR IL) 40 MG tablet Take 1 tablet by mouth daily 30 tablet 3 10/16/2019 Active spironolactone (ALDACTONE) 100 MG tablet Take 1 tablet by mouth daily 30 tablet 3 10/16/2019 Active amLODIPine (NORVASC) 10 MG tablet Take 1 tablet by mouth daily 30 tablet 3 10/15/2019 Active metoprolol tartrate (LOPRESSOR) 100 MG tablet Take 1 tablet by mouth 2 times daily 60 tablet 5 10/15/2019 Active Active Problems Problem Noted Date Diagnosed Date Moderate malnutrition 10/15/2019 Right renal artery stenosis 10/13/2019 Secondary hypertension 10/13/2019 Hypokalemia 10/13/2019 Overview (10/13/2019): Replacement after MRI Aneurysm of infrarenal abdominal aorta 0 Palpitation 06/28/2017 Hypertensive urgency 06/28/2017 Hyperlipemia 06/28/2017 Acute intractable headache Social History Tobacco Use Types Packs/Day Years Used Date Smoking Tobacco: Never Smokeless Tobacco: Never Alcohol Use Standard Drinks/Week Comments No 0 (1 standard drink = 0.6 oz pur e alcohol) Comments No Sex and Gender Information Value Date Recorded Sex Assigned at Not on file Legal Sex Female 9:20 PM EDT Gender Identity Not on file Sexual Orientation Not on file Last Filed Vital Signs Vital Sign Reading Time Taken Comments Blood Pressure 154/64 10/16/2019 3:45 PM EDT Pulse 70 10/16/2019 8:25 AM EDT Temperature 36.7 C (98 F) 10/16/2019 8:25 AM EDT Respiratory Rate 20 10/16/2019 8:25 AM EDT Oxygen Saturation 97% 10/16/2019 8:25 AM EDT Inhaled Oxygen Concentration - - Weight 67.4 kg (148 lb 9.4 oz) 10/16/2019 6:15 A M EDT Height 162.6 cm (5' 4 ) 10/15/2019 3:22 PM EDT Body Mass Index 25.51 10/15/2019 3:22 PM EDT Plan of Treatment Not on file Insurance [employer] MEDICARE Advance Directives * Full Code (Latest Code Status on File) Date Activated Date Inactivated Comments 10/09/2019 12:27 PM 10/16/2019 8:05 PM * Full Code Date Activated Date Inactivated Comments 06/28/2017 8:51 AM 06/29/2017 4:56 PM * Full Code Date Activated Date Inactivated Comments 06/28/2017 1:26 AM 06/28/2017 8:50 AM Care Teams Delivery Truck Driver Relationship Specialty Start Date End Date Velasquez Langley MD [address] [place] [address] PCP - General Family Medicine 06/27/17
--- OUTSIDE RECORDS SUMMARY | 2024-08-16 15:42 | XMS_ITS | Clinical Summary ---
Author Organization [facility] Address [address] [place] [address] Care Team Providers Care Drum Sander Offbearer Name Role Phone Unavailable Primary Care Provider Unavailabl e Social History Tobacco Use Types Packs/Day Years Used Date Smoking Tobacco: Never Assessed Comments Unknown Sex and Gender Information Value Date Recorded Sex Assigned at Not on file Legal Sex Female 9:24 AM EST Gender Identity Not on file Sexual Orientation Not on file Plan of Treatment Not on file
--- OUTSIDE RECORDS SUMMARY | 2024-08-16 15:43 | XMS_ITS | Clinical Summary ---
Author Organization [facility] Address [address] [place] [address] Care Team Providers Care Agency Sales Management Assistant Name Role Phone Velasquez Langley MD Primary Care Provider [phone] Allergies Active Allergy Reactions Criticality Noted Date Comments Atorvastatin Unknown 01/15/2023 Cefdinir Unknown 01/15/2023 Ciprofloxacin Unknown 06/27/2017 Other Reaction(s): Vomiting Meperidine Anaphylaxis High 06/27/2017 Other Reaction(s): Anaphylaxis, Unknown Meperidine Hcl Unknown 01/15/2023 Moxifloxacin Anaphylaxis,Unknown High 06/27/2017 Other Reaction(s): Other Had to bring me back. Had to pump my heart Nalbuphine Unknown 06/27/2017 Other Reaction(s): Itching Promethazine Hcl 07/23/2022 Promethazine Unknown 06/27/2017 Other Reaction(s): Unknown Reaction Statins Unknown 06/27/2017 Sulfa Antibiotics Unknown 06/27/2017 Other Reaction(s): Itching Wound Dressing Adhesive Unknown 07/23/2022 Medications memantine (Namenda Titration Pack) 28 x 5 MG & 21 x 10 MG tablet pack Take by mouth See administration instructions. Follow package directions. Active hydroCHLOROthia zide (HYDRODiuril) 12.5 MG tablet Take 25 mg by mouth in the morning. Active amitriptyline (Elavil) 10 MG tablet Take by mouth at bedtime. Active ezetimibe (Zetia) 10 MG tablet Take 10 mg by mouth in the morning. Active metFORMIN, OSM, (Fortamet) 500 MG 24 hr tablet Take 500 mg by mouth in the evening. Take with meals. Do not crush, chew, or split. Active Potassium (POTASSIMIN PO) Take by mouth. Active meclizine (Antivert) 25 MG tablet Take 25 mg by mouth 3 (three) times a day as needed for dizziness. Active pramipexole (Mirapex) 0.125 MG tablet Take 0.125 mg by mouth in the morning and 0.125 mg in the evening and 0.125 mg before bedtime. Active furosemide (Lasix) 8 MG/ML solution Take by mouth Daily. Active betamethasone, augmented, (Diprolene AF) 0.05 % creamIndication s:Atopic Dermatitis Apply 1 application topically in the morning and 1 application before bedtime. Active empagliflozin (Jardiance) 10 MG Take 10 mg by mouth. Active Spiriva HandiHaler 18 MCG inhalation capsule inhale 1 capsule by inhalation route every day Inhalation Active rOPINIRole (Requip) 0.5 MG tablet TAKE 1 TABLET BY MOUTH 1 TO 3 HOURS BEFORE BEDTIME Active Nutritional Supplements (Ensure Active High Protein) liquid Take by mouth Daily Active nitroglycerin (Nitrostat) 0.[address] 0.4 mg under the tongue Active isosorbide mononitrate ER (Imdur) 30 MG 24 hr tablet Take 30 mg by mouth in the morning. Active hydrOXYzine HCl (Atarax) 25 MG tablet TAKE 1 TABLET BY MOUTH 4 TIMES A DAY NEEDED FOR 10 DAYS 11/13/19 24 Active Eliquis 5 MG tablet 5 mg every 12 (twelve) hours Active amiodarone (Pacerone) 200 MG tablet TAKE 2 TABLETS BY MOUTH TWO TIMES DAILY FOR 14 DAYS, THEN TAKE 1 TABLET IN THE MORNING. 01/09/20 24 Active triamcinolone (Kenalog) 0.1 % creamIndication s:Other atopic dermatitis Apply to affected areas, up to twice a day when flared, do not use one the face, groin, or underarms, 30 day supply 454 g 01/16/20 24 Active Adbry 300 MG/2ML solution auto-injectorIn dications:Other atopic dermatitis Inject 300 mg under the skin See administration instructions Inject 600 mg subcutaneous on day 1 followed by 300 mg subcutaneous on day 15 and every other week thereafter 8 mL 06/09/19 25 Active Adbry 300 MG/2ML solution auto-injectorIn dications:Other atopic dermatitis Inject 300 mg under the skin every 14 (fourteen) days 4 mL 11 04/15/20 25 Active Active Problems No known active problems Encounters Date Type Department Care Team Description 06/11/2024 Telephone [facility] [address] [place] [address] Lizette Bee LPN 05/31/2024 Abstract [facility] [address] [place] [address] Allyssa Guallpa LPN 05/26/2024 Telephone [facility] [address] [place] [address] Allyssa Guallpa LPN Prior Authorization 05/20/2024 4:00 PM EDT Office Visit [facility] [address] [place] [address] Althea Red MD Other atopic dermatitis (Primary Dx); High risk medication use 05/20/2024 Bamboo flowsheet [facility] [address] [place] [address] Althea Red MD 05/20/2024 Travel from Last 3 Months Family History Medical History Relation Name Comments Melanoma Neg Hx Social History Tobacco Use Types Packs/Day Years [...] Sign Reading Time Taken Comments Blood Pressure - - Pulse - - Temperature - - Respiratory Rate - - Oxygen Saturation - - Inhaled Oxygen Concentration - - Weight 72.1 kg (159 lb) 01/06/2023 10:45 AM EST Height 160 cm (5' 3 ) 01/06/2023 10:45 AM EST Body Mass Index 28.17 01/06/2023 10:45 AM EST Plan of Treatment Upcoming Encounters Date Type Department Care Team (Late st Contact Info) Description 08/24/2024 4:00 PM EDT Office Visit [facility] [address] [place] [address] Althea Red MD [address] [place] [address] Health Maintenance Due Date Last Done Comments Pneumococcal Vaccine: 65+ Years (2 of 2 - PCV) 021 11/19/2019 Influenza Vaccine (Season Ended) 2024 11/29/19 20 Insurance [employer]ARE [employer]ARE Care Teams Agency Sales Management Assistant Relationship Specialty Start Date End Date Velasquez Langley MD PCP - General Family Medicine 01/06/23
--- OUTSIDE RECORDS SUMMARY | 2024-08-16 15:43 | XMS_ITS | Encounter Summary ---
Author Organization [facility] Address [address] [place] [address] Care Team Providers Care Meringuer Name Role Phone Velasquez Langley MD Primary Care Provider [phone] Encounter Details Date Type Department Care Team (Late Contact Info) Description 05/31/2024 Abstract [facility] [address] [place] [id number] Allyssa Guallpa LPN [address] [place] [address] Social History Tobacco Use Types Packs/Day Years Used Date Smoking Tobacco: Former Cigarettes Smokeless Tobacco: Never Comments:Last smoked: 10-15 years Comments Unknown Sex [...] Office Visit [facility] [address] [place] [address] Althea Red MD [address] [place] [address] documented as of this encounter Visit Diagnoses Not on filedocumented in this encounter Care Teams Meringuer Relationship Specialty Start Date End Date Velasquez Langley MD PCP - General Family Medicine 01/06/23 documented as of this encounter
--- OUTSIDE RECORDS SUMMARY | 2024-08-16 15:43 | XMS_ITS | Patient Health Record ---
Author Organization [facility] in [place] Address [address] [place] [address] Care Team Providers Care Access Rep Name Role Phone Enio Langley Primary Care Provider Valerio Wang Unavailable [phone] Usman Zavala Unavailable [phone] Allergies Allergen (clinical drug ingredient) Drug/Non Drug Allergy documented on EMR Reaction Allergy Type Onset Date Status Aspirin Excessive Bleeding Drug Allergy Active Atorvastatin Calcium Unknown Drug Allergy Active Avelox Unknown Drug Allergy Active Cipro Unknown Drug Allergy Active Demerol Unknown Drug Allergy Active Nubain Unknown Drug Allergy Active Phenergan Unknown Drug Allergy Active cefdinir Cefdinir Unknown Drug Allergy Active Substance [...] UROBILINOGEN n NITRITE n LEUKOCYTE ESTERASE ++ BNP Reviewed date:11/24/2023 06:41:48 PM Interpretation: Performing Lab: Notes/Report: [facility] , NT Pro B Type Natriuretic Pept 487.0 <=1800.0 pg/mL Performing Lab: see note ML - [facility] LB UA DIP NONAUTO WO MICRO ([phone]) - IN OFFICE Reviewed date:07/27/2024 04:20:30 PM Interpretation: Performing Lab: Notes/Report: COLOR yellow CLARITY clear GLUCOSE n BILIRUBIN n KETONE n SPECIFIC GRAVITY 1.015 BLOOD n PH 5 PROTEIN trace UROBILINOGEN n NITRITE n LEUKOCYTE ESTERASE ++ CBC AUTO DIFF Reviewed date:11/19/2023 08:35:41 PM Interpretation: Performing Lab: Notes/Report: [facility] , White Blood Count 14.6 4.0-11.0 10 3/uL Red Blood Count 3.89 4.20-5.40 10 6/uL Hemoglobin 10.9 12.0-16.0 g/dL Hematocrit 34.4 36.0-48.0 % Mean Corpuscular Volume 88.4 81.0-99.0 fL Mean Corpuscular Hemoglobin 28.0 26.7-34.0 pg Mean Corpuscular HGB Conc 31.7 29.9-35.2 g/dL Red Cell Distribution Width 15.9 11.0-15.0 % Platelet Count 237 150-450 10 3/uL Mean Platelet Volume 10.7 9.5-13.5 fL Neutrophils Percent Auto 80.0 43.0-75.0 % Lymphocytes Percent Auto 11.1 20.5-60.0 % Monocytes Percent Auto 5.9 1.7-12.0 % Eosinophils Percent Auto 0.9 0.9-7.0 % Basophils Percent Auto 0.3 0.2-2.0 % Immature Granulocytes Pct Auto 1.8 0.0-0.5 % Neutrophils Absolute Auto 11.7 1.4-6.5 10 3/uL Lymphocytes Absolute Auto 1.6 1.2-3.8 10 3/uL Monocytes Absolute Auto 0.9 0.3-0.8 10 3/uL Eosinophils Absolute Auto 0.1 0.0-0.7 10 3/uL Basophils Absolute Auto 0.1 0.0-0.1 10 3/uL Immature Granulocytes Abs Auto 0.27 0.00-0.03 10 3/uL Performing Lab: see note ML - [facility] LB PROF 14(COMP METB) Reviewed date:11/19/2023 08:35:41 PM Interpretation: Performing Lab: Notes/Report: [facility] , Sodium 137 136-145 mmol/L Potassium 3.7 3.5-5.1 mmol/L Chloride 98 98-107 mmol/L Carbon Dioxide 31.6 21.0-32.0 mmol/L Anion Gap 11.1 Glucose 102 74-106 mg/dL Blood Urea Nitrogen 31.0 7.0-18.0 mg/dL Creatinine 1.25 0.55-1.02 mg/dL Estimated GFR ( Margot 50 >=60 Estimated GFR (Non- Marlen 41 >=60 BUN Creatinine Ratio 24.8 Calcium 9.4 8.5-10.1 mg/dL Bilirubin Total 0.8 0.2-1.0 mg/dL Aspartate Amino Transferase 9 15-37 U/L Alanine Aminotransferase 13 14-59 U/L Alkaline Phosphatase 93 46-116 U/L Total Protein 6.1 6.4-8.2 g/dL Albumin Level 3.1 3.4-5.0 g/dL Globulin 3.0 Albumin Globulin Ratio 1.0 Performing Lab: see note ML - [facility] LB UA RANDOM W or MICROSCOPIC Reviewed date:11/19/2023 08:35:41 PM Interpretation: Performing Lab: Notes/Report: [facility] , Color Urine LT. YELLOW YELLOW Clarity Urine CLEAR CLEAR Specific [place] Urine 1.020 1.005-1.025 pH Urine 7.0 5.0-9.0 Protein Urine NEGATIVE NEG/TRACE mg/dL Glucose Urine UA >=1000 NEGATIVE mg/dL Bilirubin Urine NEGATIVE NEGATIVE Ketones Urine NEGATIVE NEGATIVE mg/dL Blood Urine NEGATIVE NEGATIVE Nitrite Urine NEGATIVE NEGATIVE Urobilinogen Urine 0.2 0.2-1.0 EU/dL Leukocyte Esterase Urine NEGATIVE NEGATIVE WBC Urine 0-2 NONE SEEN #/HPF RBC Urine NONE SEEN 0-2 #/HPF Bacteria Urine TRACE NONE SEEN #/HPF Mucus Urine NONE SEEN NONE SEEN Squamous Epithelial Cell Urine RARE NONE/RARE #/LPF Crystals Seen? None Seen None Seen #/HPF Cast Seen? NONE SEEN NONE SEEN #/LPF Performing Lab: see note ML - [facility] LB Troponin I High Sensitivity Reviewed date:11/19/2023 08:35:41 PM Interpretation: Performing Lab: Notes/Report: [facility] , Troponin I High Sensitivity 8.8 4.0-51.3 pg/mL CUT-OFF POINTS HAVE BEEN ESTABLISHED BASED ON THE FOURTH UNIVERSAL DEFINITION OF MYOCARDIAL INFARCTION. THE UPPER REFERENCE LIMIT (URL) OF TROPONIN, DEFINED THE 99TH PERCENTILE OF cTnI DISTRIBUTION IN A REFERENCE POPULATION, HAS BEEN CONFIRMED THE DECISION THRESHOLD FOR PA DIAGNOSIS. 99TH PERCENTILE = 51.4 PG/ML NOTE: HIGH-SENSITIVITY TROPONIN ASSAY IS NOT INTENDED TO BE USED IN ISOLATION BUT SHOULD BE INTERPRETED IN CONJUNCTION WITH OTHER DIAGNOSTIC AND CLINICAL INFORMATION. Performing Lab: see note ML - [facility] LB SARS-CoV-2 Ag* Reviewed date:11/19/2023 08:35:41 PM Interpretation: Performing Lab: Notes/Report: [facility] , SARS-CoV-2 Ag NEGATIVE NEGATIVE This test has not been FDA cleared or approved, but has been authorized by the FDA under an Emergency Use Authorization (EUA) for use by authorized laboratories certified under CLIA that meet the requirements to perform moderate or high complexity testing. This test has been authorized only for the detection of proteins from SARS-CoV-2, not for any other viruses or pathogens. The emergency use of this test is authorized for the duration of the declaration that circumstances exist justifying the authorization of emergency use of in vitro diagnostic tests for detection and/or diagnosis of Covid-19 under section 564(b)(1) of the Act, 21 U.S.C. 360bbb-3(b)(1), unless the declaration is terminated or authorization is revoked sooner. Performing Lab: see note ML - [facility] LB ECG 12 lead Reviewed date:11/24/2023 06:41:48 PM Interpretation: Performing Lab: Notes/Report: Source Facility: [facility]-[address] [place] [address] [place] [address] Electrocardiograph Report Draft Patient: ZACHARY MAYNARD MR#: [id number] : 1945 Acct:[id number] Age/Sex: 78 / F ADM Date: 11/23/23 Loc: ER Attending Dr: Ordering Physician: Wendy Ochoa Date of Service: 11/23/23 Procedure(s): ECG 12 lead Accession Number(s): [id number] cc: [facility] Test Date: 2023-11-23 Pat Name: ZACHARY MAYNARD Department: Room: - Gender: Female 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: : 1945 Requested By: [id number] Order Number: [id number] Reading MD: Measurements Intervals [place] Rate: 78 P: 75 TN: 146 QRS: 62 QRSD: 78 T: 58 QT: 374 QTc: 408 Interpretive Statements 1100 Sinus rhythm 1102 Sinus arrhythmia 8102 Low QRS voltage in chest leads 9120 atypical ECG No previous ECG available for comparison Dictated By: Willian Guthrie Signed By: DD/ 21 TD/TT: Varnish Melter: [place] [address] Electrocardiograph Report Draft Patient: DERECK MAYNARD MR#: [id number] : 1945 Acct:[id number] Age/Sex: 78 / F ADM Date: 11/23/23 Loc: ER Attending Dr: Ordering Physician: Wendy Ochoa Date of Service: 11/23/23 Procedure(s): ECG 12 lead Accession Number(s): [id number] cc: [facility] Test Date: 2023-11-23 Pat Name: ZACHARY ANDREA Department: 06 Room: - Gender: Female 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: : 1945 Requ ested By: [id number] Order Number: [id number] Reading MD: Measurements Intervals [place] Rate: 78 P: 75 TN: 146 QRS: 62 QRSD: 78 T: 58 QT: 374 QTc: 408 Interpretive Statements 1100 Sinus rhythm 1102 Sinus arrhythmia 8102 Low QRS voltage in chest leads 9120 atypical ECG No previous ECG avai lable for comparison Dictated By: Willian Guthrie Signed By: DD/ 21 TD/TT: Varnish Melter: XR chest 1V Reviewed date:11/19/2023 08:35:41 PM Interpretation: Performing Lab: Notes/Report: Source Facility: [place] [address] [place] [address] XRay Report Signed Patient: ZACHARY MAYNARD MR#: [id number] : 1945 Acct:[id number] Age/Sex: 78 / F ADM Date: 11/18/23 Loc: ER Attending Dr: Ordering Physician: Gabby Ryan M.D. Date of Service: 11/18/23 Procedure(s): XR chest 1V Accession Number(s): [id number] cc: Velasquez Langley M.D.; Gabby Ryan M.D. [address] [address] Patient Name: ZACHARY MAYNARD MRN: [id number] date: 1945 Sex: F Assigned Patient Location: ER Current Patient Location: ER Accession/Order Number: [id number] Exam Date: 11/18/2023 19:45 Report Date: 11/18/2023 20:51 At the request of: GABBY RYAN Procedure: XR chest 1V EXAMINATION: XR chest 1V, , 11/18/2023 7:45 PM EDT INDICATION: weak HISTORY: Ordering Provider Reason for Exam: weak Technologist Note: Additional: COMPARISON: None. TECHNIQUE: Chest x-ray: One view. FINDINGS: No pneumothorax, pleural effusion or focal airspace consolidation. Heart is normal in size. Bony thorax is unremarkable. XR/XR chest 1V IMPRESSION: No acute cardiopulmonary process. Electronically authenticated by: KARLA CALIX Date: 11/18/2023 20:51 Dictated By: Karla Calix M.D. Signed By: 11/18/232053 DD/ 50 TD/TT: Varnish Melter: [place] [address] XRay Report Signed Patient: DERECK MAYNARD MR#: [id number] : 1945 Acct:[id number] Age/Sex: 78 / F ADM Date: 11/18/23 Loc: ER Attending Dr: Ordering Physician: Gabby Ryan M.D. Date of Service: 11/18/23 Procedure(s): XR chest 1V Accession Number(s): [id number] cc: Velasquez Langley M.D. ; Gabby Ryan M.D. [address] [address] Patient Name: ZACHARY MAYNARD MRN: [id number] date: 1945 Sex: F Assigned Patient Location: ER Current Patient Loca tion: ER Accession/Order Numb er: [id number] Exam Date: 11/18/2023 19:45 Report Date: 11/18/2023 20:51 At the request of: GABBY RYAN Procedure: XR chest 1V EXAMINATION: XR ches t 1V, , 11/18/2023 7:45 PM EDT INDICATION: weak HISTORY: Ordering Provider Re ason for Exam: weak Technologist Note: Additional: COMPARISON: None. TECHNIQUE: Chest x-r ay: One view. FINDINGS: No pneumothorax, ple ural effusion or focal airspace consolidation. Heart is normal in size. Bony thorax is unremarkable. X R/XR chest 1V IMPRESSION: No acute cardiopulmo nary process. Electronically authenticated by: KARLA CALIX Date: 11/18/2023 20:51 Dictated By: Karla Calix M.D. Signed By: 11/18/232053 DD/ 50 TD/TT: Varnish Melter: CBC AUTO DIFF Reviewed date:11/24/2023 06:41:48 PM Interpretation: Performing Lab: Notes/Report: [facility] , White Blood Count 8.5 4.0-11.0 10 3/uL Red Blood Count 3.41 4.20-5.40 10 6/uL Hemoglobin 9.7 12.0-16.0 g/dL Hematocrit 30.2 36.0-48.0 % Mean Corpuscular Volume 88.6 81.0-99.0 fL Mean Corpuscular Hemoglobin 28.4 26.7-34.0 pg Mean Corpuscular HGB Conc 32.1 29.9-35.2 g/dL Red Cell Distribution Width 15.8 11.0-15.0 % Platelet Count 239 150-450 10 3/uL Mean Platelet Volume 10.2 9.5-13.5 fL Neutrophils Percent Auto 63.1 43.0-75.0 % Lymphocytes Percent Auto 23.4 20.5-60.0 % Monocytes Percent Auto 9.2 1.7-12.0 % Eosinophils Percent Auto 2.6 0.9-7.0 % Basophils Percent Auto 0.6 0.2-2.0 % Immature Granulocytes Pct Auto 1.1 0.0-0.5 % Neutrophils Absolute Auto 5.3 1.4-6.5 10 3/uL Lymphocytes Absolute Auto 2.0 1.2-3.8 10 3/uL Monocytes Absolute Auto 0.8 0.3-0.8 10 3/uL Eosinophils Absolute Auto 0.2 0.0-0.7 10 3/uL Basophils Absolute Auto 0.1 0.0-0.1 10 3/uL Immature Granulocytes Abs Auto 0.09 0.00-0.03 10 3/uL Performing Lab: see note ML - [facility] LB LACTATE or LACTIC ACID Reviewed date:11/24/2023 06:41:48 PM Interpretation: Performing Lab: Notes/Report: [facility] , Lactate/Lactic Acid 1.0 0.4-2.0 mmol/L Performing Lab: see note ML - [facility] LB PROF 14(COMP METB) Reviewed date:11/24/2023 06:41:48 PM Interpretation: Performing Lab: Notes/Report: [facility] , Sodium 136 136-145 mmol/L Potassium 2.9 3.5-5.1 mmol/L RESULTS PATEL D TO CHAPARRITA PIRES RN Chloride 100 98-107 mmol/L Carbon Dioxide 33.4 21.0-32.0 mmol/L Anion Gap 5.5 Glucose 105 74-106 mg/dL Blood Urea Nitrogen 25.0 7.0-18.0 mg/dL Creatinine 1.41 0.55-1.02 mg/dL Estimated GFR ( Margot 43 >=60 Estimated GFR (Non- Marlen 36 >=60 BUN Creatinine Ratio 17.7 Calcium 8.9 8.5-10.1 mg/dL Bilirubin Total 0.6 0.2-1.0 mg/dL Aspartate Amino Transferase 11 15-37 U/L Alanine Aminotransferase 16 14-59 U/L Alkaline Phosphatase 82 46-116 U/L Total Protein 5.8 6.4-8.2 g/dL Albumin Level 2.4 3.4-5.0 g/dL Globulin 3.4 Albumin Globulin Ratio 0.7 Performing Lab: see note ML - [facility] LB UA (CLEAN or CATCH) JANITOR CUSTODIAN or M ICRO IF IND. Reviewed date:11/24/2023 06:41:48 PM Interpretation: Performing Lab: Notes/Report: [facility] , Color Urine LT. YELLOW YELLOW Clarity Urine CLEAR CLEAR Specific [place] Urine 1.015 1.005-1.025 pH Urine 6.0 5.0-9.0 Protein Urine NEGATIVE NEG/TRACE mg/dL Glucose Urine UA NEGATIVE NEGATIVE mg/dL Bilirubin Urine NEGATIVE NEGATIVE Ketones Urine NEGATIVE NEGATIVE mg/dL Blood Urine NEGATIVE NEGATIVE Nitrite Urine NEGATIVE NEGATIVE Urobilinogen Urine 0.2 0.2-1.0 EU/dL Leukocyte Esterase Urine NEGATIVE NEGATIVE Urine Microscopic Indicated NO Performing Lab: see note - [facility] LB Troponin I High Sensitivity Reviewed date:11/24/2023 06:41:48 PM Interpretation: Performing Lab: Notes/Report: [facility] , Troponin I High Sensitivity 8.5 4.0-51.3 pg/mL CUT-OFF POINTS HAVE BEEN ESTABLISHED BASED ON THE FOURTH UNIVERSAL DEFINITION OF MYOCARDIAL INFARCTION. THE UPPER REFERENCE LIMIT (URL) OF TROPONIN, DEFINED THE 99TH PERCENTILE OF cTnI DISTRIBUTION IN A REFERENCE POPULATION, HAS BEEN CONFIRMED THE DECISION THRESHOLD FOR PA DIAGNOSIS. 99TH PERCENTILE = 51.4 PG/ML NOTE: HIGH-SENSITIVITY TROPONIN ASSAY IS NOT INTENDED TO BE USED IN ISOLATION BUT SHOULD BE INTERPRETED IN CONJUNCTION WITH OTHER DIAGNOSTIC AND CLINICAL INFORMATION. 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 Signed By: 11/24/232254 DD/ 152 TD/TT: Varnish Melter: [place] [address] Electrocardiograph Report Signed Patient: DERECK MAYNARD MR#: [id number] : 1945 Acct:[id number] Age/Sex: 78 / F ADM Date: 11/23/23 Loc: ER Attending Dr: Ordering Physician: Wendy Ochoa Date of Service: 11/23/23 Procedure(s): ECG 12 lead Accession Number(s): [id number] cc: [facility] Test Date: 2023-11-23 Pat Name: ZACHARY ANDREA Department: 06 Room: - Gender: Female 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: : 1945 Requ ested By: VELASQUEZ LANGLEY Order Number: [id number] Reading MD: RYAN ROMERO Measurements Intervals [place] Rate: 78 P: 75 TN: 146 QRS: 62 QRSD: 78 T: 58 QT: 374 QTc: 408 Interpretive Statements 1100 Sinus rhythm 1102 Sinus arrhythmia 8102 Low QRS voltage in chest leads 9120 atypical ECG Compared to ECG 11/18/2023 21:07:08 Low QRS voltage now present Electronically Martine d On 11-24-2023 22:54:48 EDT by RYAN ROMERO Dictated By: Ryan Romero D.O. Signed By: 11/24/232254 DD/ 152 TD/TT: Varnish Melter: RINA chest 2V Reviewed date:11/24/2023 06:41:48 PM Interpretation: Performing Lab: Notes/Report: Source Facility: [facility]-[address], [place] [id number] XRay Report Signed Patient: ZACHARY MAYNARD MR#: [id number] : 1945 Acct:[id number] Age/Sex: 78 / F ADM Date: 11/23/23 Loc: ER Attending Dr: Ordering Physician: Wendy Ochoa Date of Service: 11/23/23 Procedure(s): XR chest 2V Accession Number(s): [id number] cc: Velasquez Langley M.D.; Wendy Ochoa [place] [address] Patient Name: ZACHARY MAYNARD MRN: [facility]:[id number] date: 1945 Sex: F Assigned Patient Location: ER Current Patient Location: ER Accession/Order Number: [id number] Exam Date: 11/23/2023 15:41 Report Date: 11/23/2023 16:53 At the request of: WENDY OCHOA Procedure: XR chest 2V EXAM: XR chest 2V , 11/23/2023 HISTORY: cough, influenza COMPARISON: X-ray of the chest from 11/18/2023 TECHNIQUE: X-rays of the chest, frontal and lateral views in upright position. FINDINGS: Mild enlargement of the cardiac silhouette. Moderate atherosclerotic calcification of the aortic arch. Bilateral basal atelectasis. No focal consolidation or pulmonary edema. Right lower lobe nodular density, likely nipple shadow. Mild degenerative changes thoracic spine. No acute osseous findings. Multiple overlying monitoring leads and wires. XR/XR chest 2V IMPRESSION: No focal consolidation or pulmonary edema. Electronically authenticated by: RUFINA FELICIANO Date: 11/23/2023 16:53 Dictated By: Rufina Feliciano M.D. Signed By: 11/23/231655 DD/ 52 TD/TT: Varnish Melter: [place] [address] XRay Report Signed Patient: DERECK MAYNARD MR#: [id number] : 1945 Acct:[id number] Age/Sex: 78 / F ADM Date: 11/23/23 Loc: ER Attending Dr: Ordering Physician: Wendy Ochoa Date of Service: 11/23/23 Procedure(s): XR chest 2V Accession Number(s): [id number] cc: Velasquez Langley M.D. ; Wendy Ochoa [place] [address] Patient Name: ZACHARY MAYNARD MRN: [facility]:[id number] date: 1945 Sex: F Assigned Patient Location: ER Current Patient Loca tion: ER Accession/Order Numb er: [id number] Exam Date: 11/23/2023 15:41 Report Date: 11/23/2023 16:53 At the request of: WENDY OCHOA Procedure: XR chest 2V EXAM: XR chest 2V , 11/23/2023 HISTORY: cough, influenza COMPARISON: X-ray of the chest from 11/18/2023 TECHNIQUE: X-rays of the chest, frontal and lateral views in upright position. FINDINGS: Mild enlargement of the cardiac silhouette. Moderate atherosclerotic calcification of the aortic arch. Bilateral basal atelectasis. No focal consolidation or pulmonary edema. Right lower lobe nodular density, likely nipple shadow. Mild degenerative changes thoracic spine. No acute osseous findings. Multiple overlying monitoring leads and wires. X R/XR chest 2V IMPRESSION: No focal consolidati on or pulmonary edema. Electronically authenticated by: RUFINA FELICIANO Date: 11/23/2023 16:53 Dictated By: Delaney Feliciano M.D. Signed By: 11/23/231655 DD/ 52 TD/TT: Varnish Melter: BNP Reviewed date:11/26/2023 09:30:51 PM Interpretation: Performing Lab: Notes/Report: [facility] , NT Pro B Type Natriuretic Pept 3326.0 <=1800.0 pg/mL RESULTS CALLED TO CAPO ZIEGLER RN Performing Lab: see note ML - [facility] LB CBC AUTO DIFF Reviewed date:11/26/2023 09:30:51 PM Interpretation: Performing Lab: Notes/Report: [facility] , White Blood Count 8.8 4.0-11.0 10 3/uL Red Blood Count 4.10 4.20-5.40 10 6/uL Hemoglobin 11.4 12.0-16.0 g/dL Hematocrit 36.3 36.0-48.0 % Mean Corpuscular Volume 88.5 81.0-99.0 fL Mean Corpuscular Hemoglobin 27.8 26.7-34.0 pg Mean Corpuscular HGB Conc 31.4 29.9-35.2 g/dL Red Cell Distribution Width 15.6 11.0-15.0 % Platelet Count 281 150-450 10 3/uL Mean Platelet Volume 9.8 9.5-13.5 fL Neutrophils Percent Auto 67.3 43.0-75.0 % Lymphocytes Percent Auto 21.4 20.5-60.0 % Monocytes Percent Auto 7.6 1.7-12.0 % Eosinophils Percent Auto 2.0 0.9-7.0 % Basophils Percent Auto 0.6 0.2-2.0 % Immature Granulocytes Pct Auto 1.1 0.0-0.5 % Neutrophils Absolute Auto 5.9 1.4-6.5 10 3/uL Lymphocytes Absolute Auto 1.9 1.2-3.8 10 3/uL Monocytes Absolute Auto 0.7 0.3-0.8 10 3/uL Eosinophils Absolute Auto 0.2 0.0-0.7 10 3/uL Basophils Absolute Auto 0.1 0.0-0.1 10 3/uL Immature Granulocytes Abs Auto 0.10 0.00-0.03 10 3/uL Performing Lab: see note ML - [facility] LB LACTATE or LACTIC ACID Reviewed date:11/26/2023 09:30:51 PM Interpretation: Performing Lab: Notes/Report: [facility] , Lactate/Lactic Acid 1.0 0.4-2.0 mmol/L Performing Lab: see note ML - [facility] LB MAGNESIUM Reviewed date:11/26/2023 09:30:51 PM Interpretation: Performing Lab: Notes/Report: [facility] , Magnesium 1.9 1.8-2.4 mg/dL Performing Lab: see note ML - [facility] LB PROF 14(COMP METB) Reviewed date:11/26/2023 09:30:51 PM Interpretation: Performing Lab: Notes/Report: [facility] , Sodium 137 136-145 mmol/L Potassium 3.6 3.5-5.1 mmol/L Chloride 102 98-107 mmol/L Carbon Dioxide 25.8 21.0-32.0 mmol/L Anion Gap 12.8 Glucose 110 74-106 mg/dL Blood Urea Nitrogen 14.0 7.0-18.0 mg/dL Creatinine 1.23 0.55-1.02 mg/dL Estimated GFR ( Margot 51 >=60 mL/min/1.73m 2 Estimated GFR (Non- Marlen 42 >=60 mL/min/1.73m 2 BUN Creatinine Ratio 11.4 Calcium 9.8 8.5-10.1 mg/dL Bilirubin Total 0.5 0.2-1.0 mg/dL Aspartate Amino Transferase 14 15-37 U/L Alanine Aminotransferase 13 14-59 U/L Alkaline Phosphatase 89 46-116 U/L Total Protein 6.1 6.4-8.2 g/dL Albumin Level 2.7 3.4-5.0 g/dL Globulin 3.4 Albumin Globulin Ratio 0.8 Performing Lab: see note ML - [facility] LB UA (CLEAN or CATCH) JANITOR CUSTODIAN or M ICRO IF IND. Reviewed date:11/26/2023 09:30:51 PM Interpretation: Performing Lab: Notes/Report: [facility] , Color Urine LT. YELLOW YELLOW Clarity Urine CLEAR CLEAR Specific [place] Urine <=1.005 1.005-1.025 pH Urine 7.0 5.0-9.0 Protein Urine NEGATIVE NEG/TRACE mg/dL Glucose Urine UA NEGATIVE NEGATIVE mg/dL Bilirubin Urine NEGATIVE NEGATIVE Ketones Urine NEGATIVE NEGATIVE mg/dL Blood Urine NEGATIVE NEGATIVE Nitrite Urine NEGATIVE NEGATIVE Urobilinogen Urine 0.2 0.2-1.0 EU/dL Leukocyte Esterase Urine NEGATIVE NEGATIVE Urine Microscopic Indicated NO Performing Lab: see note ML - [facility] LB Prothrombin Time INR Reviewed date:11/26/2023 09:30:51 PM Interpretation: Performing Lab: Notes/Report: [facility] , Prothrombin Time 10.6 9.0-11.6 sec INR 1.00 DESIRED INR: 2.0-3.0 CONDITIONS NOT LISTED BELOW 2.5-3.5 FOR PROSTHETIC HEART VALVE REPLACEMENT 2.5-3.5 RECURRENT THROMBOSIS Performing Lab: see note ML - [facility] LB Troponin I High Sensitivity Reviewed date:11/26/2023 09:30:51 PM Interpretation: Performing Lab: Notes/Report: [facility] , Troponin I High Sensitivity 27.0 4.0-51.3 pg/mL CUT-OFF POINTS HAVE BEEN ESTABLISHED BASED ON THE FOURTH UNIVERSAL DEFINITION OF MYOCARDIAL INFARCTION. THE UPPER REFERENCE LIMIT (URL) OF TROPONIN, DEFINED THE 99TH PERCENTILE OF cTnI DISTRIBUTION IN A REFERENCE POPULATION, HAS BEEN CONFIRMED THE DECISION THRESHOLD FOR PA DIAGNOSIS. 99TH PERCENTILE = 51.4 PG/ML NOTE: HIGH-SENSITIVITY TROPONIN ASSAY IS NOT INTENDED TO BE USED IN ISOLATION BUT SHOULD BE INTERPRETED IN CONJUNCTION WITH OTHER DIAGNOSTIC AND CLINICAL INFORMATION. Performing Lab: see note ML - [facility] LB ECG 12 lead Reviewed date:11/29/2023 09:25:56 PM Interpretation: Performing Lab: Notes/Report: Source Facility: [facility]-[address] [place] [address] [place] [address] Electrocardiograph Report Signed Patient: ZACHARY MAYNARD MR#: [id number] : 1945 Acct:[id number] Age/Sex: 78 / F ADM Date: 11/26/23 Loc: MS 220-[address]: Velasquez Langley M.D. Ordering Physician: Tatiana Stewart D.O. Date of Service: 11/26/23 Procedure(s): ECG 12 lead Accession Number(s): [id number] cc: [facility] Test Date: 2023-11-26 Pat Name: ZACHARY MAYNARD Department: Room: - Gender: Female 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: : 1945 Requested By: VELASQUEZ LANGLEY Order Number: [id number] Reading MD: VELASQUEZ LANGLEY Measurements Intervals [place] Rate: 132 P: -70154 TN: -48364 QRS: 26 QRSD: 78 T: 67 QT: 334 QTc: 412 Interpretive Statements 13250 Atrial fibrillation with rapid ventricular response [address] depression, probably digitalis effect 9150 abnormal ECG Compared to ECG 11/23/2023 15:22:22 ST (T wave) deviation now present Sinus rhythm no longer present Sinus arrhythmia no longer present Electronically Signed On 11-28-2023 6:48:52 EDT by VELASQUEZ LANGLEY Dictated By: Velasquez Langley M.D. Signed By: 11/28/2349 DD/ 54 TD/TT: Varnish Melter: [place] [address] Electrocardiograph Report Signed Patient: DERECK MAYNARD MR#: [id number] : 1945 Acct:[id number] Age/Sex: 78 / F ADM Date: 11/26/23 Loc: MS 220-[address]: Sy Langley M.D. Ordering Physician: Tatiana Stewart D.O. Date of Service: 11/26/23 Procedure(s): ECG 12 lead Accession Number(s): [id number] cc: [facility] Test Date: 2023-11-26 Pat Name: ZACHARY ANDREA Department: 06 Room: - Gender: Female 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: : 1945 Requ ested By: VELASQUEZ LANGLEY Order Number: [id number] Reading MD: VELASQUEZ LANGLEY Measurements Intervals [place] Rate: 132 P: -54200 TN: -04544 QRS: 26 QRSD: 78 T: 67 QT: 334 QTc: 412 Interpretive Statements 59727 Atrial fibrill ation with rapid ventricular response [address] depression, probably digitalis effect 9150 abnormal ECG Compared to ECG 11/23/2023 15:22:22 ST (T wave) deviatio n now present Sinus rhythm no long er present Sinus arrhythmia no longer present Electronically Martine d On 11-28-2023 6:48:52 EDT by VELASQUEZ LANGLEY Dictated By: Robel Langley M.D. Signed By: 11/28/2349 DD/ 54 TD/TT: Varnish Melter: KE echo doppler complete Reviewed date:11/26/2023 09:30:51 PM Interpretation: Performing Lab: Notes/Report: Source Facility: [facility] [place] [address] [place] [address] Cardiology Report Signed Patient: ZACHARY MAYNARD MR#: [id number] : 1945 Acct:[id number] Age/Sex: 78 / F ADM Date: 11/26/23 Loc: CARD Attending Dr: Velasquez Langley M.D. Ordering Physician: Velasquez Langley M.D. Date of Service: 11/26/23 Procedure(s): CA echo doppler complete Accession Number(s): [id number] cc: Velasquez Langley M.D. Patient Name: ZACHARY MAYNARD MR#: [id number] : 1945 Exam Date: 11/26/2023 Ordering Doctor: DR Velasquez Langley . ECHOCARDIOGRAM REPORT PROCEDURE: CA ECHO DOPPLER COMPLETE INDICATIONS: Sinus tachycardia, COPD COMPARISON: None. DESCRIPTION: COMPLETE ECHOCARDIOGRAM Real-time transthoracic echocardiography with 2D, M-mode, spectral and color flow Doppler performed. QUALITY: Technical quality was good. Patient appears to be rapid atrial fibrillation. Ordering physician notified of finding, patient sent to Emergency Department for further care. LEFT VENTRICLE: Normal chamber size. Normal left ventricular wall thickness. LV EF: Global left ventricular systolic function is hyperdynamic; visually estimated ejection fraction is 70 to 75%. No significant wall motion abnormalities. DIASTOLIC: Not adequately assessed due to heart rhythm. ATRIAL SEPTUM: Visually appears intact. Lipomatous hypertrophy of the intra-atrial septum. LEFT ATRIUM: Normal chamber size. RIGHT ATRIUM: Normal chamber size. RIGHT VENTRICLE: Normal chamber size. Normal systolic function. TRICUSPID VALVE: Normal mobility and thickness. No stenosis with trivial regurgitation. Unable to assess right-sided pressures due to lack of measurable tricuspid regurgitation. MITRAL VALVE: Normal mobility and thickness. No evidence of mitral valve stenosis. There is no mitral annular calcification. Mild mitral regurgitation. AORTIC VALVE: Normal trileaflet appearance. Mildly calcified aortic valve. Normal leaflet mobility. No evidence of aortic valve stenosis. No aortic regurgitation. AORTIC ROOT: Normal diameter and appearance. PULMONIC VALVE: Normal thickness and mobility. No stenosis. No regurgitation. PERICARDIUM: Anterior free space; trivial effusion versus prominent fat pad. IVC: Collapses with inspirations. IVC is dilated (2.3 cm) CONCLUSION: 1. Global left ventricular systolic function is hyperdynamic; visually estimated ejection fraction is 70 to 75% 2. Normal right ventricular size and systolic function 3. Mild mitral regurgitation 4. Anterior free space; trivial effusion versus fat pad Adult Echocardiography Procedure Report Left Ventricle LVEDD (3.7 - 5.6 cm): 3.95 cm LVESD (2.2 - 4.0 cm): 2.68 cm LVIVS thickness (0.6 - 1.2 cm): 0.98 cm LVPW thickness (0.5 - 1.0 cm): 0.79 cm LVOT Max Gradient: 2.38 mm[Hg] LVOT Area (cm2): 0.77 m/s Peak Velocity (LVOT): 0.77 m/s LVOT Diameter 2.01 cm Left Atrium LA Volume Index (2D A2C): 32.51 ml/m2 Left Atrium Systolic Dimension: 3.81 cm Mitral Valve Right Ventricle Aorta AO Root Diam: 2.75 cm Ascending Ao Diam: 2.33 cm Aortic Valve AoV Area (Peak Master): 1.89 cm2, 1.89 cm2 Peak Velocity(Antegrade Flow): 1.29 m/s Peak Gradient(Antegrade Flow): 6.70 mm[Hg] Tricuspid Valve Pulmonic Valve Peak Velocity: 0.96 m/s Peak Gradient: 4.09 mm[Hg], 3.27 mm[Hg] Right Atrium Dictated by: Uziel Khan M.D. on 11/26/2023 at 12:04 Approved by: Uziel Khan M.D. on 11/26/2023 at 12:07 Dictated By: Uziel Khan M.D. Signed By: 11/26/23 1209 DD/ 120 TD/TT: Varnish Melter: [place] [address] Cardiology Report Signed Patient: DERECK MAYNARD MR#: [id number] : 1945 Acct:[id number] Age/Sex: 78 / F ADM Date: 11/26/23 Loc: CARD Attending Dr: Sy Langley M.D. Ordering Physician: Velasquez Langley M.D. Date of Service: 11/26/23 Procedure(s): CA ech o doppler complete Accession Number(s): [id number] cc: Velasquez Langley M.D. Patient Name: ZACHARY MAYNARD MR#: [id number] : 1945 Exam Date: 11/26/2023 Ordering Doctor: DR Velasquez Langley . ECHOCARDIOGRAM REPORT PROCEDURE: CA ECHO DOPPLER COMPLETE INDICATIONS: Sinus tachycardia, COPD COMPARISON: None. DESCRIPTION: COMPLET E ECHOCARDIOGRAM Real-time transthoracic echocardiography wit h 2D, M-mode, spectral and color flow Doppler performed. QUALITY: Technical quality was good. Patient appears to be rapid atrial fibrillation. Orderi physician notified of finding, patient sent to Emergency Department for further care. LEFT VENTRICLE: Norm al chamber size. Normal left ventricular wall thickness. LV EF: Global left ventricular systolic function is hyperdynamic; visually estimated ejection fraction is 70 to 75%. No significant wall motion abnormalities. DIASTOLIC: Not adequ ately assessed due to heart rhythm. ATRIAL SEPTUM: Visua lly appears intact. Lipomatous hypertrophy of the intra-atrial septum. LEFT ATRIUM: Normal chamber size. RIGHT ATRIUM: Normal chamber size. RIGHT VENTRICLE: Nor mal chamber size. Normal systolic function. TRICUSPID VALVE: Nor mal mobility and thickness. No stenosis with trivial regurgitation. Unabl e to assess right-sided pressures due to lack of measurable tricuspid regurgitation. MITRAL VALVE: Normal mobility and thickness. No evidence of mitral valve stenosis. There is n o mitral annular calcification. Mild mitral regurgitation. AORTIC VALVE: Gill l trileaflet appearance. Mildly calcified aortic valve. Normal leaflet mobil ity. No evidence of aortic valve stenosis. No aortic regurgitation. AORTIC ROOT: Normal diameter and appearance. PULMONIC VALVE: Norm al thickness and mobility. No stenosis. No regurgitation. PERICARDIUM: Anterio r free space; trivial effusion versus prominent fat pad. IVC: Collapses with inspirations. IVC is dilated (2.3 cm) CONCLUSION: 1. Global left ventricular systolic function is hyperdynamic; visually estimated ejection fraction is 70 to 75% 2. Normal right ventricular size and systolic function 3. Mild mitral regurgitation 4. Anterior free spa ce; trivial effusion versus fat pad Adult Echocardiograp hy Procedure Report Left Ventricle LVEDD (3.7 - 5.6 cm) : 3.95 cm LVESD (2.2 - 4.0 cm) : 2.68 cm LVIVS thickness (0.6 - 1.2 cm): 0.98 cm LVPW thickness (0.5 - 1.0 cm): 0.79 cm LVOT Max Gradient: 2 .38 mm[Hg] LVOT Area (cm2): 0.77 m/s Peak Velocity (LVOT) : 0.77 m/s LVOT Diameter 2.01 cm Left Atrium LA Volume Index (2D A2C): 32.51 ml/m2 Left Atrium Systolic Dimension: 3.81 cm Mitral Valve Right Ventricle Aorta AO Root Diam: 2.75 cm Ascending Ao Diam: 2 .33 cm Aortic Valve AoV Area (Peak Master): 1.89 cm2, 1.89 cm2 Peak Velocity(Antegr emily Flow): 1.29 m/s Peak Gradient(Antegr emily Flow): 6.70 mm[Hg] Tricuspid Valve Pulmonic Valve Peak Velocity: 0.96 m/s Peak Gradient: 4.09 mm[Hg], 3.27 mm[Hg] Right Atrium Dictated by: Uziel Khan M.D. on 11/26/2023 at 12:04 Approved by: Uziel Khan M.D. on 11/26/2023 at 12:07 Dictated By: Uziel Khan M.D. Signed By: 11/26/23 1209 DD/ 1207 TD/TT: Varnish Melter: XR chest 1V Reviewed date:11/26/2023 09:30:51 PM Interpretation: Performing Lab: Notes/Report: Source Facility: [place] [address] XRay Report Signed Patient: ZACHARY MAYNARD MR#: [id number] : 1945 Acct:[id number] Age/Sex: 78 / F ADM Date: 11/26/23 Loc: ER Attending Dr: Ordering Physician: Tatiana Stewart D.O. Date of Service: 11/26/23 Procedure(s): XR chest 1V Accession Number(s): [id number] cc: Velasquez Langley M.D.; Tatiana Stewart D.O. [place] [address] Patient Name: ZACHARY MAYNARD MRN: [facility]:[id number] date: 1945 Sex: F Assigned Patient Location: ER Current Patient Location: ER Accession/Order Number: [id number] Exam Date: 11/26/2023 11:35 Report Date: 11/26/2023 11:51 At the request of: TATIANA STEWART Procedure: XR chest 1V EXAMINATION: XR chest 1V HISTORY: palpitations/SOB COMPARISON: 11/18/2023 TECHNIQUE: AP portable FINDINGS: LUNGS: No significant pulmonary parenchymal abnormalities. VASCULATURE: No increased pulmonary vasculature. PLEURA: No pneumothorax, effusion, or pleural thickening. CARDIAC: No cardiomegaly or cardiac silhouette abnormality. MEDIASTINUM: No visible mass or adenopathy. Aortic atherosclerosis BONES: No fracture or visible bone lesion. OTHER: Negative. XR/XR chest 1V IMPRESSION: No acute cardiopulmonary process Electronically authenticated by: VALERIO HOOKER Date: 11/26/2023 11:51 Dictated By: Valerio Hooker M.D. Signed By: 11/26/23 1154 DD/ 1151 TD/TT: Varnish Melter: [place] [address] XRay Report Signed Patient: DERECK MAYNARD MR#: [id number] : 1945 Acct:[id number] Age/Sex: 78 / F ADM Date: 11/26/23 Loc: ER Attending Dr: Ordering Physician: Tatiana Stewart D.O. Date of Service: 11/26/23 Procedure(s): XR chest 1V Accession Number(s): [id number] cc: Velasquez Langley M.D. ; Tatiana Stewart D.O. [facility] [place] [id number] Patient Name: ZACHARY MAYNARD MRN: [facility]:[id number] date: 1945 Sex: F Assigned Patient Location: ER Current Patient Loca tion: ER Accession/Order Numb er: [id number] Exam Date: 11:35 Report Date: 11/26/2023 11:51 At the request of: TATIANA STEWART Procedure: XR chest 1V EXAMINATION: XR chest 1V HISTORY: palpitations/SOB COMPARISON: 11/18/2023 TECHNIQUE: AP portable FINDINGS: LUNGS: No significan t pulmonary parenchymal abnormalities. VASCULATURE: No incr eased pulmonary vasculature. PLEURA: No pneumotho rax, effusion, or pleural thickening. CARDIAC: No cardiome david or cardiac silhouette abnormality. MEDIASTINUM: No visi ble mass or adenopathy. Aortic atherosclerosis BONES: No fracture o r visible bone lesion. OTHER: Negative. X R/XR chest 1V IMPRESSION: No acute cardiopulmo nary process Electronically authenticated by: VALERIO HOOKER Date: 11/26/2023 11:51 Dictated By: Leonidas Hooker M.D. Signed By: 11/26/23 1154 DD/ 1151 TD/TT: Varnish Melter: Troponin I High Sensitivity Reviewed date:11/26/2023 09:30:51 PM Interpretation: Performing Lab: Notes/Report: [facility] , Troponin I High Sensitivity 175.5 4.0-51.3 pg/mL RESULTS CALLED TO CAPO ZIEGLER RN CUT-OFF POINTS HAVE BEEN ESTABLISHED BASED ON THE FOURTH UNIVERSAL DEFINITION OF MYOCARDIAL INFARCTION. THE UPPER REFERENCE LIMIT (URL) OF TROPONIN, DEFINED THE 99TH PERCENTILE OF cTnI DISTRIBUTION IN A REFERENCE POPULATION, HAS BEEN CONFIRMED THE DECISION THRESHOLD FOR PA DIAGNOSIS. 99TH PERCENTILE = 51.4 PG/ML NOTE: HIGH-SENSITIVITY TROPONIN ASSAY IS NOT INTENDED TO BE USED IN ISOLATION BUT SHOULD BE INTERPRETED IN CONJUNCTION WITH OTHER DIAGNOSTIC AND CLINICAL INFORMATION. Performing Lab: see note ML - [facility] LB MAGNESIUM Reviewed date:11/26/2023 09:30:51 PM Interpretation: Performing Lab: Notes/Report: [facility] , Magnesium 1.8 1.8-2.4 mg/dL Performing Lab: see note ML - [facility] LB Troponin I High Sensitivity Reviewed date:11/26/2023 09:43:36 PM Interpretation: Performing Lab: Notes/Report: [facility] , Troponin I High Sensitivity 148.9 4.0-51.3 pg/mL RESULTS CALLED TO OSCAR WATSON RN at 2133 CUT-OFF POINTS HAVE BEEN ESTABLISHED BASED ON THE FOURTH UNIVERSAL DEFINITION OF MYOCARDIAL INFARCTION. THE UPPER REFERENCE LIMIT (URL) OF TROPONIN, DEFINED THE 99TH PERCENTILE OF cTnI DISTRIBUTION IN A REFERENCE POPULATION, HAS BEEN CONFIRMED THE DECISION THRESHOLD FOR PA DIAGNOSIS. 99TH PERCENTILE = 51.4 PG/ML NOTE: HIGH-SENSITIVITY TROPONIN ASSAY IS NOT INTENDED TO BE USED IN ISOLATION BUT SHOULD BE INTERPRETED IN CONJUNCTION WITH OTHER DIAGNOSTIC AND CLINICAL INFORMATION. Performing Lab: see note - [facility] LB BNP Reviewed date:11/27/2023 08:38:20 PM Interpretation: Performing Lab: Notes/Report: [facility] , NT Pro B Type Natriuretic Pept 2368.0 <=1800.0 pg/mL RESULTS CALLED TO CASSIA SAUCEDO RN at 0614 Performing Lab: see note - [facility] LB CBC AUTO DIFF Reviewed date:11/27/2023 08:38:20 PM Interpretation: Performing Lab: Notes/Report: [facility] , White Blood Count 6.6 4.0-11.0 10 3/uL Red Blood Count 3.42 4.20-5.40 10 6/uL Hemoglobin 9.6 12.0-16.0 g/dL Hematocrit 29.8 36.0-48.0 % Mean Corpuscular Volume 87.1 81.0-99.0 fL Mean Corpuscular Hemoglobin 28.1 26.7-34.0 pg Mean Corpuscular HGB Conc 32.2 29.9-35.2 g/dL Red Cell Distribution Width 15.5 11.0-15.0 % Platelet Count 262 150-450 10 3/uL Mean Platelet Volume 9.8 9.5-13.5 fL Neutrophils Percent Auto 65.0 43.0-75.0 % Lymphocytes Percent Auto 22.5 20.5-60.0 % Monocytes Percent Auto 8.3 1.7-12.0 % Eosinophils Percent Auto 3.0 0.9-7.0 % Basophils Percent Auto 0.3 0.2-2.0 % Immature Granulocytes Pct Auto 0.9 0.0-0.5 % Neutrophils Absolute Auto 4.3 1.4-6.5 10 3/uL Lymphocytes Absolute Auto 1.5 1.2-3.8 10 3/uL Monocytes Absolute Auto 0.6 0.3-0.8 10 3/uL Eosinophils Absolute Auto 0.2 0.0-0.7 10 3/uL Basophils Absolute Auto 0.0 0.0-0.1 10 3/uL Immature Granulocytes Abs Auto 0.06 0.00-0.03 10 3/uL Performing Lab: see note ML - [facility] PROF CHEM 8 (BAS METB) Reviewed date:11/27/2023 08:38:20 PM Interpretation: Performing Lab: Notes/Report: [facility] , Sodium 137 136-145 mmol/L Potassium 3.3 3.5-5.1 mmol/L Chloride 102 98-107 mmol/L Carbon Dioxide 27.5 21.0-32.0 mmol/L Anion Gap 10.8 Glucose 102 74-106 mg/dL Blood Urea Nitrogen 11.0 7.0-18.0 mg/dL Creatinine 1.28 0.55-1.02 mg/dL Estimated GFR ( Margot 49 >=60 mL/min/1.73m 2 Estimated GFR (Non- Marlen 40 >=60 mL/min/1.73m 2 BUN Creatinine Ratio 8.6 Calcium 9.1 8.5-10.1 mg/dL Performing Lab: see note ML - [facility] Troponin I High Sensitivity Reviewed date:11/27/2023 08:38:20 PM Interpretation: Performing Lab: Notes/Report: [facility] , Troponin I High Sensitivity 102.3 4.0-51.3 pg/mL RESULTS CALLED TO CASSIA SAUCEDO RN at 0614 CUT-OFF POINTS HAVE BEEN ESTABLISHED BASED ON THE FOURTH UNIVERSAL DEFINITION OF MYOCARDIAL INFARCTION. THE UPPER REFERENCE LIMIT (URL) OF TROPONIN, DEFINED THE 99TH PERCENTILE OF cTnI DISTRIBUTION IN A REFERENCE POPULATION, HAS BEEN CONFIRMED THE DECISION THRESHOLD FOR PA DIAGNOSIS. 99TH PERCENTILE = 51.4 PG/ML NOTE: HIGH-SENSITIVITY TROPONIN ASSAY IS NOT INTENDED TO BE USED IN ISOLATION BUT SHOULD BE INTERPRETED IN CONJUNCTION WITH OTHER DIAGNOSTIC AND CLINICAL INFORMATION. Performing Lab: see note ML - [facility] LB TSH W/ REFLEX FT4 Reviewed date:11/27/2023 08:38:20 PM Interpretation: Performing Lab: Notes/Report: [facility] , TSH W/ REFLEX FT4 1.654 0.358-3.740 uIU/mL Performing Lab: see note ML - [facility] ECG 12 lead Reviewed date:11/29/2023 09:25:56 PM Interpretation: Performing Lab: Notes/Report: Source Facility: [place] [address] [place] [address] Electrocardiograph Report Signed Patient: ZACHARY MAYNARD MR#: [id number] : 1945 Acct:[id number] Age/Sex: 78 / F ADM Date: 11/26/23 Loc: MS 220-[address]: Velasquez Langley M.D. Ordering Physician: Velasquez Langley M.D. 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 Signed By: 11/28/23 0649 DD/ 0511 TD/TT: Varnish Melter: [place] [address] Electrocardiograph Report Signed Patient: DERECK MAYNARD MR#: [id number] : 1945 Acct:[id number] Age/Sex: 78 / F ADM Date: 11/26/23 Loc: MS 220-[address]: Sy Langley M.D. Ordering Physician: Velasquez Langley M.D. 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 Signed By: 11/28/2349 DD/ 0 TD/TT: Varnish Melter: BNP Reviewed date:11/29/2023 09:25:55 PM Interpretation: Performing Lab: Notes/Report: [facility] , NT Pro B Type Natriuretic Pept 1418.0 <=1800.0 pg/mL Performing Lab: see note ML - [facility] LB CBC AUTO DIFF Reviewed date:11/29/2023 09:25:55 PM Interpretation: Performing Lab: Notes/Report: [facility] , White Blood Count 6.5 4.0-11.0 10 3/uL Red Blood Count 3.78 4.20-5.40 10 6/uL Hemoglobin 10.6 12.0-16.0 g/dL Hematocrit 33.2 36.0-48.0 % Mean Corpuscular Volume 87.8 81.0-99.0 fL Mean Corpuscular Hemoglobin 28.0 26.7-34.0 pg Mean Corpuscular HGB Conc 31.9 29.9-35.2 g/dL Red Cell Distribution Width 15.6 11.0-15.0 % Platelet Count 271 150-450 10 3/uL Mean Platelet Volume 9.8 9.5-13.5 fL Neutrophils Percent Auto 63.5 43.0-75.0 % Lymphocytes Percent Auto 23.3 20.5-60.0 % Monocytes Percent Auto 7.7 1.7-12.0 % Eosinophils Percent Auto 3.5 0.9-7.0 % Basophils Percent Auto 0.9 0.2-2.0 % Immature Granulocytes Pct Auto 1.1 0.0-0.5 % Neutrophils Absolute Auto 4.1 1.4-6.5 10 3/uL Lymphocytes Absolute Auto 1.5 1.2-3.8 10 3/uL Monocytes Absolute Auto 0.5 0.3-0.8 10 3/uL Eosinophils Absolute Auto 0.2 0.0-0.7 10 3/uL Basophils Absolute Auto 0.1 0.0-0.1 10 3/uL Immature Granulocytes Abs Auto 0.07 0.00-0.03 10 3/uL Performing Lab: see note ML - [facility] PROF CHEM 8 (BAS METB) Reviewed date:11/29/2023 09:25:56 PM Interpretation: Performing Lab: Notes/Report: [facility] , Sodium 137 136-145 mmol/L Potassium 3.8 3.5-5.1 mmol/L Chloride 102 98-107 mmol/L Carbon Dioxide 26.4 21.0-32.0 mmol/L Anion Gap 12.4 Glucose 106 74-106 mg/dL Blood Urea Nitrogen 13.0 7.0-18.0 mg/dL Creatinine 1.30 0.55-1.02 mg/dL Estimated GFR ( Margot 48 >=60 mL/min/1.73m 2 Estimated GFR (Non- Marlen 39 >=60 mL/min/1.73m 2 BUN Creatinine Ratio 10.0 Calcium 9.2 8.5-10.1 mg/dL Performing Lab: see note ML - [facility] Troponin I High Sensitivity Reviewed date:11/29/2023 09:25:56 PM Interpretation: Performing Lab: Notes/Report: [facility] , Troponin I High Sensitivity 29.4 4.0-51.3 pg/mL CUT-OFF POINTS HAVE BEEN ESTABLISHED BASED ON THE FOURTH UNIVERSAL DEFINITION OF MYOCARDIAL INFARCTION. THE UPPER REFERENCE LIMIT (URL) OF TROPONIN, DEFINED THE 99TH PERCENTILE OF cTnI DISTRIBUTION IN A REFERENCE POPULATION, HAS BEEN CONFIRMED THE DECISION THRESHOLD FOR PA DIAGNOSIS. 99TH PERCENTILE = 51.4 PG/ML NOTE: HIGH-SENSITIVITY TROPONIN ASSAY IS NOT INTENDED TO BE USED IN ISOLATION BUT SHOULD BE INTERPRETED IN CONJUNCTION WITH OTHER DIAGNOSTIC AND CLINICAL INFORMATION. Performing Lab: see note ML - [facility] CA holter monitor 7-15 days Reviewed date:12/02/2023 07:27:35 AM Interpretation: Performing Lab: Notes/Report: Source Facility: [facility] [place] [address] Cardiology Report Signed Patient: ZACHARY MAYNARD MR#: [id number] : 1945 Acct:[id number] Age/Sex: 78 / F ADM Date: 11/19/23 Loc: CARD Attending Dr: Velasquez Langley M.D. Ordering Physician: Velasquez Langley M.D. Date of Service: 11/19/23 Procedure(s): CA holter monitor 7-15 days Accession Number(s): [id number] cc: Velasquez Langley M.D. 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: : 1945 Requested By: VELASQUEZ LANGLEY Order Number: [id number] Reading MD: RYAN ROMERO Interpretive Statements Predominant rhythm is sinus with average rate of 78 Tachycardia - max rate of 205 bpm (NSVT) - 1,015 episodes of PSVT w/ longest duration of 4min 12sec Bradycardia - min rate of 50 bpm Ventricular ectopy - 437 total, < 1% - 335 PVC - 66 couplets NSVT - 11 episodes with longest duration of 4 beats Patient triggered events: 1 - associated w/ SVE - no associated symptoms noted Impression Predominant rhythm is sinus with average rate of 78 Fastest rate of 205 bpm (NSVT) and slowest rate of 50 bpm 335 PVC, 66 couplets 11 episodes of NSVT w/ longest duration of 4 beats Longest episode of sinus tachy is 6min 11sec w/ rates between 102-107 bpm No atrial fibrillation No blocks or pauses Electronically Signed On 12-01-2023 22:41:49 EDT by RYAN ROMERO Dictated By: Ryan Romero D.O. Signed By: 12/01/23 22412/01/232240 DD/ 05 TD/TT: Varnish Melter: [place] [address] Cardiology Report Signed Patient: DERECK MAYNARD MR#: [id number] : 1945 Acct:[id number] Age/Sex: 78 / F ADM Date: 11/19/23 Loc: CARD Attending Dr: Sy Langley M.D. Ordering Physician: Velasquez Langley M.D. Date of Service: 11/19/23 Procedure(s): CA hol ter monitor 7-15 days Accession Number(s): [id number] cc: Velasquez Langley M.D. 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: : 1945 Requ ested By: VELASQUEZ LANGLEY Order Number: [id number] Reading MD: RYAN ROMERO Interpretive Statements Predominant rhythm i s sinus with average rate of 78 Tachycardia - max rate of 205 bp m (NSVT) - 1,015 episodes of PSVT w/ longest duration of 4min 12sec Bradycardia - min rate of 50 bpm Ventricular ectopy - 437 total, < 1% - 335 PVC - 66 couplets NSVT - 11 episodes with longest duration of 4 beats Patient triggered ev ents: 1 - associated w/ SVE - no associated symp toms noted Impression Predominant rhythm i s sinus with average rate of 78 Fastest rate of 205 bpm (NSVT) and slowest rate of 50 bpm 335 PVC, 66 couplets 11 episodes of NSVT w/ longest duration of 4 beats Longest episode of s inus tachy is 6min 11sec w/ rates between 102-107 bpm No atrial fibrillation No blocks or pauses Electronically Martine d On 12-01-2023 22:41:49 EDT by RYAN ROMERO Dictated By: Ryan Romero D.O. Signed By: 12/01/23224012/01/232240 DD/ TD/TT: Varnish Melter: BNP Reviewed date:12/02/2023 07:49:21 PM Interpretation: Performing Lab: Notes/Report: [facility] , NT Pro B Type Natriuretic Pept 2497.0 <=1800.0 pg/mL RESULTS CALLED TO JENNIFER FAY,RN Performing Lab: see note ML - [facility] LB CBC AUTO DIFF Reviewed date:12/02/2023 07:49:21 PM Interpretation: Performing Lab: Notes/Report: [facility] , White Blood Count 7.6 4.0-11.0 10 3/uL Red Blood Count 3.90 4.20-5.40 10 6/uL Hemoglobin 11.0 12.0-16.0 g/dL Hematocrit 34.4 36.0-48.0 % Mean Corpuscular Volume 88.2 81.0-99.0 fL Mean Corpuscular Hemoglobin 28.2 26.7-34.0 pg Mean Corpuscular HGB Conc 32.0 29.9-35.2 g/dL Red Cell Distribution Width 15.6 11.0-15.0 % Platelet Count 327 150-450 10 3/uL Mean Platelet Volume 10.2 9.5-13.5 fL Neutrophils Percent Auto 62.0 43.0-75.0 % Lymphocytes Percent Auto 27.8 20.5-60.0 % Monocytes Percent Auto 5.7 1.7-12.0 % Eosinophils Percent Auto 3.3 0.9-7.0 % Basophils Percent Auto 0.7 0.2-2.0 % Immature Granulocytes Pct Auto 0.5 0.0-0.5 % Neutrophils Absolute Auto 4.7 1.4-6.5 10 3/uL Lymphocytes Absolute Auto 2.1 1.2-3.8 10 3/uL Monocytes Absolute Auto 0.4 0.3-0.8 10 3/uL Eosinophils Absolute Auto 0.3 0.0-0.7 10 3/uL Basophils Absolute Auto 0.1 0.0-0.1 10 3/uL Immature Granulocytes Abs Auto 0.04 0.00-0.03 10 3/uL Performing Lab: see note ML - [facility] LB MAGNESIUM Reviewed date:12/02/2023 07:49:21 PM Interpretation: Performing Lab: Notes/Report: [facility] , Magnesium 1.7 1.8-2.4 mg/dL Performing Lab: see note ML - [facility] LB PROF CHEM 8 (BAS METB) Reviewed date:12/02/2023 07:49:21 PM Interpretation: Performing Lab: Notes/Report: [facility] , Sodium 139 136-145 mmol/L Potassium 3.7 3.5-5.1 mmol/L Chloride 102 98-107 mmol/L Carbon Dioxide 27.8 21.0-32.0 mmol/L Anion Gap 12.9 Glucose 143 74-106 mg/dL Blood Urea Nitrogen 13.0 7.0-18.0 mg/dL Creatinine 1.29 0.55-1.02 mg/dL Estimated GFR ( Margot 48 >=60 mL/min/1.73m 2 Estimated GFR (Non- Marlen 40 >=60 mL/min/1.73m 2 BUN Creatinine Ratio 10.1 Calcium 9.5 8.5-10.1 mg/dL Performing Lab: see note - [facility] Troponin I High Sensitivity Reviewed date:12/02/2023 07:49:21 PM Interpretation: Performing Lab: Notes/Report: [facility] , Troponin I High Sensitivity 6.6 4.0-51.3 pg/mL CUT-OFF POINTS HAVE BEEN ESTABLISHED BASED ON THE FOURTH UNIVERSAL DEFINITION OF MYOCARDIAL INFARCTION. THE UPPER REFERENCE LIMIT (URL) OF TROPONIN, DEFINED THE 99TH PERCENTILE OF cTnI DISTRIBUTION IN A REFERENCE POPULATION, HAS BEEN CONFIRMED THE DECISION THRESHOLD FOR PA DIAGNOSIS. 99TH PERCENTILE = 51.4 PG/ML NOTE: HIGH-SENSITIVITY TROPONIN ASSAY IS NOT INTENDED TO BE USED IN ISOLATION BUT SHOULD BE INTERPRETED IN CONJUNCTION WITH OTHER DIAGNOSTIC AND CLINICAL INFORMATION. Performing Lab: see note - [facility] ECG 12 lead Reviewed date:12/04/2023 10:13:30 AM Interpretation: Performing Lab: Notes/Report: Source Facility: [place] [address] Electrocardiograph Report Signed Patient: ZACHARY MAYNARD MR#: [id number] : 1945 Acct:[id number] Age/Sex: 78 / F ADM Date: 12/02/23 Loc: MS 202- Attending Dr: Velasquez Langley M.D. 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 Signed By: 12/03/232242 DD/ 24 TD/TT: Varnish Melter: [place] [address] Electrocardiograph Report Signed Patient: DERECK MAYNARD MR#: [id number] : 1945 Acct:[id number] Age/Sex: 78 / F ADM Date: 12/02/23 Loc: MS 202-[address]: Sy Langley M.D. 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 Signed By: 12/03/232242 DD/ 24 TD/TT: Varnish Melter: RINA chest 1V Reviewed date:12/02/2023 07:49:21 PM Interpretation: Performing Lab: Notes/Report: Source Facility: [place] [address] [address] XRay Report Signed Patient: ZACHARY MAYNARD MR#: [id number] : 1945 Acct:[id number] Age/Sex: 78 / F ADM Date: 12/02/23 Loc: ER Attending Dr: Ordering Physician: Peter Edwards Date of Service: 12/02/23 Procedure(s): XR chest 1V Accession Number(s): [id number] cc: Velasquez Langley M.D.; Peter Edwards [place] [id number] Patient Name: ZACHARY MAYNARD MRN: [facility]:[id number] date: 1945 Sex: F Assigned Patient Location: ER Current Patient Location: ED.MAIN Accession/Order Number: [id number] Exam Date: 12/02/2023 17:50 Report Date: 12/02/2023 19:22 At the request of: PETER EDWARDS Procedure: XR chest 1V ONE-VIEW CHEST RADIOGRAPH, 12/02/2023 5:50 PM EDT COMPARISON: Chest, 11/26/2023. CLINICAL HISTORY: chest pain Findings and impression: 1. No acute pulmonary disease. 2. Borderline heart size appears slightly accentuated due to patient rotation to the left. External awake overnight monitor overlying the heart. 3. No acute osseous abnormality. Electronically authenticated by: Roni CATALAN Date: 12/02/2023 19:22 Dictated By: Adonay Catalan M.D. Signed By: 12/02/231924 DD/ 21 TD/TT: Varnish Melter: [address] [address] XRay Report Signed Patient: DERECK MAYNARD MR#: [id number] : 1945 Acct:[id number] Age/Sex: 78 / F ADM Date: 12/02/23 Loc: ER Attending Dr: Ordering Physician: Peter Edwards Date of Service: 12/02/23 Procedure(s): XR chest 1V Accession Number(s): [id number] cc: Velasquez Langley M.D. ; Peter Edwards [place] [address] Patient Name: ZACHARY MAYNARD MRN: [facility]:[id number] date: 1945 Sex: F Assigned Patient Location: ER Current Patient Loca tion: ED.MAIN Accession/Order Numb er: [id number] Exam Date: 17:50 Report Date: 12/02/2023 19:22 At the request of: PETER EDWARDS Procedure: XR chest 1V ONE-VIEW CHEST RADIOGRAPH, 12/02/2023 5:50 PM EDT COMPARISON: Chest, 11/26/2023. CLINICAL HISTORY: ch est pain Findings and impression: 1. No acute pulmonar y disease. 2. Borderline heart size appears slightly accentuated due to patient rotation to the left. Externa l awake overnight monitor overlying the heart. 3. No acute osseous abnormality. Electronically authenticated by: Roni CATALAN Date: 12/02/2023 19:22 Dictated By: Adonay Catalan M.D. Signed By: 12/02/231924 DD/ 21 TD/TT: Varnish Melter: ECG 12 lead Reviewed date:12/04/2023 10:13:30 AM Interpretation: Performing Lab: Notes/Report: Source Facility: [place] [address] Electrocardiograph Report Signed Patient: ZACHARY MAYNARD MR#: [id number] : 1945 Acct:[id number] Age/Sex: 78 / F ADM Date: 12/02/23 Loc: MS 202-[address]: Velasquez Langley M.D. 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 Signed By: 12/03/232243 DD/ 33 TD/TT: Varnish Melter: [place] [address] Electrocardiograph Report Signed Patient: DERECK MAYNARD MR#: [id number] : 1945 Acct:[id number] Age/Sex: 78 / F ADM Date: 12/02/23 Loc: MS 202-[address]: Sy Langley M.D. 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 Signed By: 12/03/232243 DD/ 33 TD/TT: Varnish Melter: Troponin I High Sensitivity Reviewed date:12/03/2023 08:27:15 PM Interpretation: Performing Lab: Notes/Report: [facility] , Troponin I High Sensitivity 9.0 4.0-51.3 pg/mL CUT-OFF POINTS HAVE BEEN ESTABLISHED BASED ON THE FOURTH UNIVERSAL DEFINITION OF MYOCARDIAL INFARCTION. THE UPPER REFERENCE LIMIT (URL) OF TROPONIN, DEFINED THE 99TH PERCENTILE OF cTnI DISTRIBUTION IN A REFERENCE POPULATION, HAS BEEN CONFIRMED THE DECISION THRESHOLD FOR PA DIAGNOSIS. 99TH PERCENTILE = 51.4 PG/ML NOTE: HIGH-SENSITIVITY TROPONIN ASSAY IS NOT INTENDED TO BE USED IN ISOLATION BUT SHOULD BE INTERPRETED IN CONJUNCTION WITH OTHER DIAGNOSTIC AND CLINICAL INFORMATION. Performing Lab: see note ML - [facility] LB CBC AUTO DIFF Reviewed date:12/03/2023 08:27:15 PM Interpretation: Performing Lab: Notes/Report: [facility] , White Blood Count 7.0 4.0-11.0 10 3/uL Red Blood Count 3.38 4.20-5.40 10 6/uL Hemoglobin 9.4 12.0-16.0 g/dL Hematocrit 29.8 36.0-48.0 % Mean Corpuscular Volume 88.2 81.0-99.0 fL Mean Corpuscular Hemoglobin 27.8 26.7-34.0 pg Mean Corpuscular HGB Conc 31.5 29.9-35.2 g/dL Red Cell Distribution Width 15.7 11.0-15.0 % Platelet Count 298 150-450 10 3/uL Mean Platelet Volume 10.3 9.5-13.5 fL Neutrophils Percent Auto 60.0 43.0-75.0 % Lymphocytes Percent Auto 27.3 20.5-60.0 % Monocytes Percent Auto 8.0 1.7-12.0 % Eosinophils Percent Auto 3.2 0.9-7.0 % Basophils Percent Auto 0.9 0.2-2.0 % Immature Granulocytes Pct Auto 0.6 0.0-0.5 % Neutrophils Absolute Auto 4.2 1.4-6.5 10 3/uL Lymphocytes Absolute Auto 1.9 1.2-3.8 10 3/uL Monocytes Absolute Auto 0.6 0.3-0.8 10 3/uL Eosinophils Absolute Auto 0.2 0.0-0.7 10 3/uL Basophils Absolute Auto 0.1 0.0-0.1 10 3/uL Immature Granulocytes Abs Auto 0.04 0.00-0.03 10 3/uL Performing Lab: see note ML - [facility] LB MAGNESIUM Reviewed date:12/03/2023 08:27:15 PM Interpretation: Performing Lab: Notes/Report: [facility] , Magnesium 2.3 1.8-2.4 mg/dL Performing Lab: see note ML - [facility] LB PROF 14(COMP METB) Reviewed date:12/03/2023 08:27:15 PM Interpretation: Performing Lab: Notes/Report: [facility] , Sodium 138 136-145 mmol/L Potassium 4.2 3.5-5.1 mmol/L Chloride 104 98-107 mmol/L Carbon Dioxide 26.4 21.0-32.0 mmol/L Anion Gap 11.8 Glucose 117 74-106 mg/dL Blood Urea Nitrogen 16.0 7.0-18.0 mg/dL Creatinine 1.41 0.55-1.02 mg/dL Estimated GFR ( Margot 43 >=60 mL/min/1.73m 2 Estimated GFR (Non- Marlen 36 >=60 mL/min/1.73m 2 BUN Creatinine Ratio 11.3 Calcium 8.7 8.5-10.1 mg/dL Bilirubin Total 0.5 0.2-1.0 mg/dL Aspartate Amino Transferase 10 15-37 U/L Alanine Aminotransferase 9 14-59 U/L Alkaline Phosphatase 84 46-116 U/L Total Protein 5.3 6.4-8.2 g/dL Albumin Level 2.4 3.4-5.0 g/dL Globulin 2.9 Albumin Globulin Ratio 0.8 Performing Lab: see note ML - [facility] Troponin I High Sensitivity Reviewed date:12/03/2023 08:27:15 PM Interpretation: Performing Lab: Notes/Report: [facility] , Troponin I High Sensitivity 9.8 4.0-51.3 pg/mL CUT-OFF POINTS HAVE BEEN ESTABLISHED BASED ON THE FOURTH UNIVERSAL DEFINITION OF MYOCARDIAL INFARCTION. THE UPPER REFERENCE LIMIT (URL) OF TROPONIN, DEFINED THE 99TH PERCENTILE OF cTnI DISTRIBUTION IN A REFERENCE POPULATION, HAS BEEN CONFIRMED THE DECISION THRESHOLD FOR PA DIAGNOSIS. 99TH PERCENTILE = 51.4 PG/ML NOTE: HIGH-SENSITIVITY TROPONIN ASSAY IS NOT INTENDED TO BE USED IN ISOLATION BUT SHOULD BE INTERPRETED IN CONJUNCTION WITH OTHER DIAGNOSTIC AND CLINICAL INFORMATION. Performing Lab: see note ML - [facility] LB CT angio chest Reviewed date:12/03/2023 08:27:15 PM Interpretation: Performing Lab: Notes/Report: Source Facility: [place] [address] CT Scan Report Signed Patient: ZACHARY MAYNARD MR#: [id number] : 1945 Acct:[id number] Age/Sex: 78 / F ADM Date: 12/02/23 Loc: MS 202- Attending Dr: Velasquez Langley M.D. Ordering Physician: Velasquez Langley M.D. Date of Service: 12/03/23 Procedure(s): CT angio chest Accession Number(s): [id number] cc: Velasquez Langley M.D. [place] [address] Patient Name: ZACHARY MAYNARD MRN: [id number]:[id number] date: 1945 Sex: F Assigned Patient Location: [place] Current Patient Location: [place] Accession/Order Number: [id number] Exam Date: 12/03/2023 08:20 Report Date: 12/03/2023 08:56 At the request of: VELASQUEZ LANGLEY Procedure: CT angio chest EXAMINATION: CT angio chest HISTORY: aortic dissection - requested by cardiology COMPARISON: No relevant comparison available. TECHNIQUE: Multi-planar CT images were created with IV contrast. Axial, Coronal, and Sagittal images. Dose reduction techniques were achieved by using automated exposure control and/or adjustment of mA and/or kV according to patient size and/or use of iterative reconstruction technique. FINDINGS: LUNGS: Mild centrilobular and paraseptal emphysema with an right upper lobe predominance. Scattered subcentimeter patchy nodular densities throughout both lungs most significant in the left lower lobe. PLEURA: No mass, effusion, or pneumothorax. VASCULATURE: Normal postcontrast opacification of the central pulmonary arterial tree with no filling defect to suggest a pulmonary embolus DAWN: Bilateral hilar lymph nodes MEDIASTINUM: No mass or adenopathy. CARDIAC: No enlargement or pericardial effusion Coronary arteries: Moderate calcifications AORTA: Extensive soft and calcific atherosclerosis. No aortic dissection. Aneurysm of the aortic arch measuring a maximum of 3.3 cm coronal image 44. CHEST WALL: No mass or axillary adenopathy. BONES: No bone lesion or fracture. LIMITED ABDOMEN: No suspicious findings. Limited images of the upper abdomen. OTHER: Negative. CT/CT angio chest IMPRESSION: No central pulmonary thromboembolic disease No aortic dissection. 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 Signed By: 12/03/23857 DD/ 5 TD/TT: Varnish Melter: [place] [address] CT Scan Report Signed Patient: DERECK MAYNARD MR#: [id number] : 1945 Acct:[id number] Age/Sex: 78 / F ADM Date: 12/02/23 Loc: MS 202- Attending Dr: Sy Langley M.D. Ordering Physician: Velsaquez Langley M.D. Date of Service: 12/03/23 Procedure(s): CT ang io chest Accession Number(s): [id number] cc: Velasquez Langley M.D. [place] [address] Patient Name: ZACHARY MAYNARD MRN: [id number] date: 1945 Sex: F Assigned Patient Location: MS Current Patient Loca tion: MS Accession/Order Numb er: [id number] Exam Date: 4 08:20 Report Date: 12/03/2023 08:56 At the request of: VELASQUEZ LANGLEY Procedure: CT angio chest EXAMINATION: CT lacy o chest HISTORY: aortic dissection - requested by cardiology COMPARISON: No relev ant comparison available. TECHNIQUE: Multi-hal thuy CT images were created with IV contrast. Axial, Coronal, and Sagitta l images. Dose reduction techniques were achieved by using automated exposure control and/or adjustment of mA and/or kV according to patient size and/or use of iterative reconstruction technique. FINDINGS: LUNGS: Mild centrilo bular and paraseptal emphysema with an right upper lobe predominance. Scatte red subcentimeter patchy nodular densities throughout both lungs most significa nt in the left lower lobe. PLEURA: No mass, effusion, or pneumothorax. VASCULATURE: Normal postcontrast opacification of the central pulmonary arterial tree with n o filling defect to suggest a pulmonary embolus DAWN: Bilateral dawn r lymph nodes MEDIASTINUM: No mass or adenopathy. CARDIAC: No enlargem ent or pericardial effusion Coronary arteries: Moderate calcifications AORTA: Extensive sof t and calcific atherosclerosis. No aortic dissection. Aneurysm of the aort ic arch measuring a maximum of 3.3 cm coronal image 44. CHEST WALL: No mass or axillary adenopathy. BONES: No bone lesio n or fracture. LIMITED ABDOMEN: No suspicious findings. Limited images of the upper abdomen. OTHER: Negative. C T/CT angio chest IMPRESSION: No central pulmonary thromboembolic disease No aortic dissection. 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 Signed By: 12/03/2358 DD/ TD/TT: Varnish Melter: Troponin I High Sensitivity Reviewed date:12/03/2023 08:27:15 PM Interpretation: Performing Lab: Notes/Report: [facility] , Troponin I High Sensitivity 9.6 4.0-51.3 pg/mL CUT-OFF POINTS HAVE BEEN ESTABLISHED BASED ON THE FOURTH UNIVERSAL DEFINITION OF MYOCARDIAL INFARCTION. THE UPPER REFERENCE LIMIT (URL) OF TROPONIN, DEFINED THE 99TH PERCENTILE OF cTnI DISTRIBUTION IN A REFERENCE POPULATION, HAS BEEN CONFIRMED THE DECISION THRESHOLD FOR PA DIAGNOSIS. 99TH PERCENTILE = 51.4 PG/ML NOTE: HIGH-SENSITIVITY TROPONIN ASSAY IS NOT INTENDED TO BE USED IN ISOLATION BUT SHOULD BE INTERPRETED IN CONJUNCTION WITH OTHER DIAGNOSTIC AND CLINICAL INFORMATION. Performing Lab: see note ML - [facility] LB BNP Reviewed date:12/04/2023 04:51:40 PM Interpretation: Performing Lab: Notes/Report: [facility] , NT Pro B Type Natriuretic Pept 1487.0 <=1800.0 pg/mL Performing Lab: see note ML - [facility] LB CBC AUTO DIFF Reviewed date:12/04/2023 04:51:40 PM Interpretation: Performing Lab: Notes/Report: [facility] , White Blood Count 6.8 4.0-11.0 10 3/uL Red Blood Count 3.51 4.20-5.40 10 6/uL Hemoglobin 9.9 12.0-16.0 g/dL Hematocrit 31.7 36.0-48.0 % Mean Corpuscular Volume 90.3 81.0-99.0 fL Mean Corpuscular Hemoglobin 28.2 26.7-34.0 pg Mean Corpuscular HGB Conc 31.2 29.9-35.2 g/dL Red Cell Distribution Width 15.9 11.0-15.0 % Platelet Count 297 150-450 10 3/uL Mean Platelet Volume 10.3 9.5-13.5 fL Neutrophils Percent Auto 66.9 43.0-75.0 % Lymphocytes Percent Auto 22.5 20.5-60.0 % Monocytes Percent Auto 6.8 1.7-12.0 % Eosinophils Percent Auto 2.7 0.9-7.0 % Basophils Percent Auto 0.7 0.2-2.0 % Immature Granulocytes Pct Auto 0.4 0.0-0.5 % Neutrophils Absolute Auto 4.5 1.4-6.5 10 3/uL Lymphocytes Absolute Auto 1.5 1.2-3.8 10 3/uL Monocytes Absolute Auto 0.5 0.3-0.8 10 3/uL Eosinophils Absolute Auto 0.2 0.0-0.7 10 3/uL Basophils Absolute Auto 0.1 0.0-0.1 10 3/uL Immature Granulocytes Abs Auto 0.03 0.00-0.03 10 3/uL Performing Lab: see note ML - [facility] LB MAGNESIUM Reviewed date:12/04/2023 04:51:40 PM Interpretation: Performing Lab: Notes/Report: [facility] , Magnesium 2.1 1.8-2.4 mg/dL Performing Lab: see note - [facility] LB PROF 14(COMP METB) Reviewed date:12/04/2023 04:51:40 PM Interpretation: Performing Lab: Notes/Report: [facility] , Sodium 141 136-145 mmol/L Potassium 4.1 3.5-5.1 mmol/L Chloride 106 98-107 mmol/L Carbon Dioxide 26.3 21.0-32.0 mmol/L Anion Gap 12.8 Glucose 138 74-106 mg/dL Blood Urea Nitrogen 16.0 7.0-18.0 mg/dL Creatinine 1.33 0.55-1.02 mg/dL Estimated GFR ( Margot 46 >=60 mL/min/1.73m 2 Estimated GFR (Non- Marlen 38 >=60 mL/min/1.73m 2 BUN Creatinine Ratio 12.0 Calcium 9.1 8.5-10.1 mg/dL Bilirubin Total 0.4 0.2-1.0 mg/dL Aspartate Amino Transferase 11 15-37 U/L Alanine Aminotransferase 11 14-59 U/L Alkaline Phosphatase 90 46-116 U/L Total Protein 5.9 6.4-8.2 g/dL Albumin Level 2.6 3.4-5.0 g/dL Globulin 3.3 Albumin Globulin Ratio 0.8 Performing Lab: see note ML - [facility] LB Prothrombin Time INR Reviewed date:12/04/2023 04:51:40 PM Interpretation: Performing Lab: Notes/Report: [facility] , Prothrombin Time 10.6 9.0-11.6 sec INR 1.00 DESIRED INR: 2.0-3.0 CONDITIONS NOT LISTED BELOW 2.5-3.5 FOR PROSTHETIC HEART VALVE REPLACEMENT 2.5-3.5 RECURRENT THROMBOSIS Performing Lab: see note ML - [facility] Troponin I High Sensitivity Reviewed date:12/04/2023 04:51:40 PM Interpretation: Performing Lab: Notes/Report: [facility] , Troponin I High Sensitivity 8.2 4.0-51.3 pg/mL CUT-OFF POINTS HAVE BEEN ESTABLISHED BASED ON THE FOURTH UNIVERSAL DEFINITION OF MYOCARDIAL INFARCTION. THE UPPER REFERENCE LIMIT (URL) OF TROPONIN, DEFINED THE 99TH PERCENTILE OF cTnI DISTRIBUTION IN A REFERENCE POPULATION, HAS BEEN CONFIRMED THE DECISION THRESHOLD FOR PA DIAGNOSIS. 99TH PERCENTILE = 51.4 PG/ML NOTE: HIGH-SENSITIVITY TROPONIN ASSAY IS NOT INTENDED TO BE USED IN ISOLATION BUT SHOULD BE INTERPRETED IN CONJUNCTION WITH OTHER DIAGNOSTIC AND CLINICAL INFORMATION. Performing Lab: see note - [facility] LB XR chest 1V Reviewed date:12/04/2023 04:51:40 PM Interpretation: Performing Lab: Notes/Report: Source Facility: [facility] [place] [address] [place] [address] XRay Report Signed Patient: ZACHARY MAYNARD MR#: [id number] : 1945 Acct:[id number] Age/Sex: 78 / F ADM Date: 12/04/23 Loc: ER Attending Dr: Ordering Physician: Jaclyn Estrada Date of Service: 12/04/23 Procedure(s): XR chest 1V Accession Number(s): [id number] cc: Velasquez Langley M.D.; Jaclyn Estrada [place] [address] Patient Name: ZACHARY MAYNARD MRN: [id number] date: 1945 Sex: F Assigned Patient Location: ER Current Patient Location: ER Accession/Order Number: [id number] Exam Date: 12/04/2023 13:00 Report Date: 12/04/2023 14:03 At the request of: JACLYN ESTRADA Procedure: XR chest 1V EXAMINATION: XR chest 1V HISTORY: sob COMPARISON: XR chest 12/02/2023 FINDINGS: LUNGS: Expanded lungs with mild opacity and stranding within lung bases. VASCULATURE: No increased pulmonary vasculature. PLEURA: No pneumothorax, effusion, or pleural thickening. CARDIAC: Stable mild cardiomegaly. MEDIASTINUM: No visible mass or adenopathy. BONES: No fracture or visible bone lesion. OTHER: Electronic device projecting over midline chest. XR/XR chest 1V IMPRESSION: 1. Hyperexpanded lungs with mild bibasilar infiltrates versus atelectasis; new since prior study. 2. Stable mild cardiomegaly. Electronically authenticated by: RENATA SWEENEY Date: 12/04/2023 14:03 Dictated By: Renata Sweeney M.D. Signed By: 12/04/23 1405 DD/ 140 TD/TT: Varnish Melter: [place] [address] XRay Report Signed Patient: DERECK MAYNARD MR#: [id number] : 1945 Acct:[id number] Age/Sex: 78 / F ADM Date: 12/04/23 Loc: ER Attending Dr: Ordering Physician: Jaclyn Estrada Date of Service: 12/04/23 Procedure(s): XR chest 1V Accession Number(s): [id number] cc: Velasquez Langley M.D. ; Jaclyn Estrada [place] [id number] Patient Name: ZACHARY MAYNARD MRN: [id number] date: 1945 Sex: F Assigned Patient Location: ER Current Patient Loca tion: ER Accession/Order Numb er: [id number] Exam Date: 13:00 Report Date: 12/04/2023 14:03 At the request of: JACLYN ESTRADA Procedure: XR chest 1V EXAMINATION: XR chest 1V HISTORY: sob COMPARISON: XR chest 12/02/2023 FINDINGS: LUNGS: Expanded lung s with mild opacity and stranding within lung bases. VASCULATURE: No incr eased pulmonary vasculature. PLEURA: No pneumotho rax, effusion, or pleural thickening. CARDIAC: Stable mild cardiomegaly. MEDIASTINUM: No visi ble mass or adenopathy. BONES: No fracture o r visible bone lesion. OTHER: Electronic de vice projecting over midline chest. X R/XR chest 1V IMPRESSION: 1. Hyperexpanded briana gs with mild bibasilar infiltrates versus atelectasis; new since prior study. 2. Stable mild cardiomegaly. Electronically authenticated by: RENATA SWEENEY Date: 12/04/2023 14:03 Dictated By: Renata Sweeney M.D. Signed By: 12/04/23 1405 DD/ 1403 TD/TT: Varnish Melter: BLOOD GASES BTY Reviewed date:02/02/2024 10:16:01 AM Interpretation: Performing Lab: Notes/Report: [facility] , pH ABG 7.382 7.350-7.450 ABG PCO2 46.4 35.0-45.0 mmHg PO2 ABG 57.3 80.0-100.0 mmHg RESULTS CALL ED TO GILBERT ALVARADO) IN ER HCO3 ABG 27.6 22.0-26.0 mmol/L Base Excess ABG 2.5 -2.0-2.0 mmol/L Oxygen Saturation ABG 90.7 Andrés Test POS POSITIVE O2 Mode NASAL CANNULA Liters per Minute 2 Puncture Site LEFT RADIAL Performing Lab: see note - [facility] LB BNP Reviewed date:02/02/2024 10:16:01 AM Interpretation: Performing Lab: Notes/Report: [facility] , NT Pro B Type Natriuretic Pept 7664.0 <=1800.0 pg/mL RESULTS CALLED TO RENEE CEDEÑO) IN ER Performing Lab: see note - [facility] LB CBC AUTO DIFF Reviewed date:02/02/2024 10:16:01 AM Interpretation: Performing Lab: Notes/Report: [facility] , White Blood Count 9.6 4.0-11.0 10 3/uL Red Blood Count 3.11 4.20-5.40 10 6/uL Hemoglobin 8.8 12.0-16.0 g/dL Hematocrit 28.8 36.0-48.0 % Mean Corpuscular Volume 92.6 81.0-99.0 fL Mean Corpuscular Hemoglobin 28.3 26.7-34.0 pg Mean Corpuscular HGB Conc 30.6 29.9-35.2 g/dL Red Cell Distribution Width 16.6 11.0-15.0 % Platelet Count 164 150-450 10 3/uL Mean Platelet Volume 12.4 9.5-13.5 fL Neutrophils Percent Auto 78.3 43.0-75.0 % Lymphocytes Percent Auto 12.9 20.5-60.0 % Monocytes Percent Auto 3.8 1.7-12.0 % Eosinophils Percent Auto 3.8 0.9-7.0 % Basophils Percent Auto 0.4 0.2-2.0 % Immature Granulocytes Pct Auto 0.8 0.0-0.5 % Neutrophils Absolute Auto 7.5 1.4-6.5 10 3/uL Lymphocytes Absolute Auto 1.2 1.2-3.8 10 3/uL Monocytes Absolute Auto 0.4 0.3-0.8 10 3/uL Eosinophils Absolute Auto 0.4 0.0-0.7 10 3/uL Basophils Absolute Auto 0.0 0.0-0.1 10 3/uL Immature Granulocytes Abs Auto 0.08 0.00-0.03 10 3/uL Performing Lab: see note ML - [facility] LB LACTATE or LACTIC ACID Reviewed date:02/02/2024 10:16:01 AM Interpretation: Performing Lab: Notes/Report: [facility] , Lactate/Lactic Acid 0.7 0.4-2.0 mmol/L Performing Lab: see note ML - [facility] LB PROF 14(COMP METB) Reviewed date:02/02/2024 10:16:01 AM Interpretation: Performing Lab: Notes/Report: [facility] , Sodium 139 136-145 mmol/L Potassium 4.4 3.5-5.1 mmol/L Chloride 103 98-107 mmol/L Carbon Dioxide 31.2 21.0-32.0 mmol/L Anion Gap 9.2 Glucose 113 74-106 mg/dL Blood Urea Nitrogen 22.0 7.0-18.0 mg/dL Creatinine 1.44 0.55-1.02 mg/dL Estimated GFR ( Margot 42 >=60 mL/min/1.73m 2 Estimated GFR (Non- Marlen 35 >=60 mL/min/1.73m 2 BUN Creatinine Ratio 15.3 Calcium 8.4 8.5-10.1 mg/dL Bilirubin Total 0.6 0.2-1.0 mg/dL Aspartate Amino Transferase 14 15-37 U/L Alanine Aminotransferase 14 14-59 U/L Alkaline Phosphatase 100 46-116 U/L Total Protein 6.0 6.4-8.2 g/dL Albumin Level 2.6 3.4-5.0 g/dL Globulin 3.4 Albumin Globulin Ratio 0.8 Performing Lab: see note ML - [facility] LB UA RANDOM W or MICROSCOPIC Reviewed date:02/02/2024 10:16:00 AM Interpretation: Performing Lab: Notes/Report: [facility] , Color Urine LT. YELLOW YELLOW Clarity Urine CLEAR CLEAR Specific [place] Urine 1.015 1.005-1.025 pH Urine 6.0 5.0-9.0 Protein Urine 30 NEG/TRACE mg/dL Glucose Urine UA NEGATIVE NEGATIVE mg/dL Bilirubin Urine NEGATIVE NEGATIVE Ketones Urine NEGATIVE NEGATIVE mg/dL Blood Urine NEGATIVE NEGATIVE Nitrite Urine NEGATIVE NEGATIVE Urobilinogen Urine 0.2 0.2-1.0 EU/dL Leukocyte Esterase Urine NEGATIVE NEGATIVE WBC Urine 0-2 NONE SEEN #/HPF RBC Urine 0-2 0-2 #/HPF Bacteria Urine TRACE NONE SEEN #/HPF Mucus Urine NONE SEEN NONE SEEN Squamous Epithelial Cell Urine RARE NONE/RARE #/LPF Crystals Seen? None Seen None Seen #/HPF Cast Seen? NONE SEEN NONE SEEN #/LPF Urine Culture Indicated NO Performing Lab: see note - [facility] Prothrombin Time INR Reviewed date:02/02/2024 10:16:00 AM Interpretation: Performing Lab: Notes/Report: [facility] , Prothrombin Time 11.1 9.0-11.6 sec INR 1.05 DESIRED INR: 2.0-3.0 CONDITIONS NOT LISTED BELOW 2.5-3.5 FOR PROSTHETIC HEART VALVE REPLACEMENT 2.5-3.5 RECURRENT THROMBOSIS Performing Lab: see note - [facility] Troponin I High Sensitivity Reviewed date:02/02/2024 10:16:01 AM Interpretation: Performing Lab: Notes/Report: [facility] , Troponin I High Sensitivity 38.3 4.0-51.3 pg/mL CUT-OFF POINTS HAVE BEEN ESTABLISHED BASED ON THE FOURTH UNIVERSAL DEFINITION OF MYOCARDIAL INFARCTION. THE UPPER REFERENCE LIMIT (URL) OF TROPONIN, DEFINED THE 99TH PERCENTILE OF cTnI DISTRIBUTION IN A REFERENCE POPULATION, HAS BEEN CONFIRMED THE DECISION THRESHOLD FOR PA DIAGNOSIS. 99TH PERCENTILE = 51.4 PG/ML NOTE: HIGH-SENSITIVITY TROPONIN ASSAY IS NOT INTENDED TO BE USED IN ISOLATION BUT SHOULD BE INTERPRETED IN CONJUNCTION WITH OTHER DIAGNOSTIC AND CLINICAL INFORMATION. 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 Signed By: 02/02/24528 DD/ 44 TD/TT: Varnish Melter: CT head/brain wo con Reviewed date:02/02/2024 10:16:00 AM Interpretation: Performing Lab: Notes/Report: Source Facility: [place] [address] CT Scan Report Signed Patient: ZACHARY MAYNARD MR#: [id number] : 1945 Acct:[id number] Age/Sex: 78 / F ADM Date: 02/01/24 Loc: ER Attending Dr: Ordering Physician: Tiffany Jamil Date of Service: 02/01/24 Procedure(s): CT head/brain wo con Accession Number(s): [id number] cc: Velasquez Langley M.D. [place] [address] Patient Name: ZACAHRY MAYNARD MRN: [id number] date: 1945 Sex: F Assigned Patient Location: ER Current Patient Location: ED.MAIN Accession/Order Number: [id number] Exam Date: 02/01/2024 20:55 Report Date: 02/01/2024 22:29 At the request of: TIFFANY JAMIL Procedure: CT head/brain wo con EXAM: CT head/brain wo con INDICATION: 78 years old; Female. Change in mental status. TECHNIQUE: CT Head (ax/cor/sag reformats). Ionizing radiation dose reduced via iterative reconstruction/FBP blend and body size kV/mA adjustment. Comparison: MRI the brain dated 05/29/2022. FINDINGS: POSTOPERATIVE CHANGES: None. BRAIN PARENCHYMA: No intraparenchymal or extra-axial hemorrhage. No mass effect. No midline shift or herniation. Patchy low-density in the white well without mass effect. VENTRICLES/EXTRA-AXIAL SPACES: Enlarged but within normal limits for patient's age. SINUSES/MASTOIDS: The visualized sinuses are clear although the maxillary sinuses are not completely included. Mastoids and middle ears are clear. MSK: No displaced or depressed calvarial fracture. OTHER: No hyperdense intraluminal thrombus. There is vascular calcification in the anterior and posterior circulation. CT/CT head/brain wo con IMPRESSION: 1. No acute intracranial abnormality. No hemorrhage or mass effect. 2. Nonspecific white matter changes. 3. Vascular calcification. Electronically authenticated by: KEENAN BRADLEY Date: 02/01/2024 22:29 Dictated By: Keenan Bradley M.D. Signed By: 02/01/242231 DD/ 28 TD/TT: Varnish Melter: [place] [address] CT Scan Report Signed Patient: DERECK MAYNARD MR#: [id number] : 1945 Acct:[id number] Age/Sex: 78 / F ADM Date: 02/01/24 Loc: ER Attending Dr: Ordering Physician: Tiffany Jamil Date of Service: 02/01/24 Procedure(s): CT head/brain wo con Accession Number(s): [id number] cc: Velasquez Langley M.D. [address] [address] Patient Name: ZACHARY MAYNARD MRN: [id number] date: 1945 Sex: F Assigned Patient Location: ER Current Patient Loca tion: ED.MAIN Accession/Order Numb er: [id number] Exam Date: 20:55 Report Date: 02/01/2024 22:29 At the request of: TIFFANY JAMIL Procedure: CT head/b rain wo con EXAM: CT head/brain wo con INDICATION: 78 years old; Female. Change in mental status. TECHNIQUE: CT Head (ax/cor/sag reformats). Ionizing radiation dose reduced via iterative reconstruction/FBP blend and body size kV/mA adjustment. Comparison: MRI the brain dated 05/29/2022. FINDINGS: POSTOPERATIVE CHANGE S: None. BRAIN PARENCHYMA: No intraparenchymal or extra-axial hemorrhage. No mass effect. No midline s hift or herniation. Patchy low-density in the white well without mass effect. VENTRICLES/EXTRA-AXI AL SPACES: Enlarged but within normal limits for patient's age. SINUSES/MASTOIDS: Th e visualized sinuses are clear although the maxillary sinuses are not completely included. Mastoids and middle ears are clear. MSK: No displaced or depressed calvarial fracture. OTHER: No hyperdense intraluminal thrombus. There is vascular calcification in the anterior and posterior circulation. C T/CT head/brain wo con IMPRESSION: 1. No acute intracra nial abnormality. No hemorrhage or mass effect. 2. Nonspecific white matter changes. 3. Vascular calcification. Electronically authenticated by: KEENAN BRADLEY Date: 02/01/2024 22:29 Dictated By: Keenan Bradley M.D. Signed By: 02/01/242231 DD/ 28 TD/TT: Varnish Melter: XR acute abdomen series Reviewed date:02/02/2024 10:16:00 AM Interpretation: Performing Lab: Notes/Report: Source Facility: [place] [address] XRay Report Signed Patient: ZACHARY MAYNARD MR#: [id number] : 1945 Acct:[id number] Age/Sex: 78 / F ADM Date: 02/01/24 Loc: ER Attending Dr: Ordering Physician: Tiffany Jamil Date of Service: 02/01/24 Procedure(s): XR acute abdomen series Accession Number(s): [id number] cc: Velasquez Langley M.D.; Tiffany Jamil [place] [address] Patient Name: ZACHARY MAYNARD MRN: [id number] date: 1945 Sex: F Assigned Patient Location: ER Current Patient Location: ER Accession/Order Number: [id number] Exam Date: 02/01/2024 20:55 Report Date: 02/01/2024 22:45 At the request of: TIFFANY JAMIL Procedure: XR acute abdomen series EXAM: XR acute abdomen series HISTORY: AMS, post op constipation COMPARISON: None. TECHNIQUE: Single frontal view of the chest as well as upright and supine views of the abdomen FINDINGS: Enlarged cardiac silhouette is seen. Small bilateral pleural effusion is suspected. No obvious pneumothorax is seen. Prominence of the bronchovascular markings is seen, suspicious for pulmonary edema and/or infectious process. Nonspecific bowel gas pattern is seen. No air-filled distended loops of bowel is seen to suggest bowel obstruction. No gross pneumoperitoneum is seen. Large volume of stool is seen throughout the colon. Aortobiiliac stent is seen in place. No obvious acute osseous abnormality is seen. XR/XR acute abdomen series IMPRESSION: Small bilateral pleural effusion is suspected. Prominence of the bronchovascular markings is seen, suspicious for pulmonary edema and/or infectious process. Large volume of stool seen in the colon. Electronically authenticated by: KARLA CALIX Date: 02/01/2024 22:45 Dictated By: Karla Calix M.D. Signed By: 02/01/242247 DD/ 44 TD/TT: Varnish Melter: [place] [address] XRay Report Signed Patient: DERECK MAYNARD MR#: [id number] : 1945 Acct:[id number] Age/Sex: 78 / F ADM Date: 02/01/24 Loc: ER Attending Dr: Ordering Physician: Tiffany Jamil Date of Service: 02/01/24 Procedure(s): XR acu te abdomen series Accession Number(s): [id number] cc: Velasquez Langley M.D. ; Tiffany Jamil [address] [address] Patient Name: ZACHARY MAYNARD MRN: [id number] date: 1945 Sex: F Assigned Patient Location: ER Current Patient Loca tion: ER Accession/Order Numb er: [id number] Exam Date: 20:55 Report Date: 02/01/2024 22:45 At the request of: TIFFANY JAMIL Procedure: XR acute abdomen series EXAM: XR acute abdom en series HISTORY: AMS, post o p constipation COMPARISON: None. TECHNIQUE: Single fr ontal view of the chest as well as upright and supine views of the abdomen FINDINGS: Enlarged cardiac silhouette is seen. Small bilateral pleural effusion is suspected. No obv ious pneumothorax is seen. Prominence of the bronchovascular hugo ings is seen, suspicious for pulmonary edema and/or infectious process. Nonspecific bowel ga s pattern is seen. No air-filled distended loops of bowel is seen to suggest b owel obstruction. No gross pneumoperitoneum is seen. Large volume of stool is s een throughout the colon. Aortobiiliac stent is seen in place. No obvious acute oss eous abnormality is seen. X R/XR acute abdomen series IMPRESSION: Small bilateral pleu ral effusion is suspected. Prominence of the bronchovascular markings is seen, suspicious for pulmonary edema and/or infecti ous process. Large volume of stoo l seen in the colon. Electronically authenticated by: KARLA CALIX Date: 02/01/2024 22:45 Dictated By: Karla Calix M.D. Signed By: 02/01/242247 DD/ 44 TD/TT: Varnish Melter: CBC AUTO DIFF Reviewed date:02/02/2024 10:16:00 AM Interpretation: Performing Lab: Notes/Report: [facility] , White Blood Count 9.6 4.0-11.0 10 3/uL Red Blood Count 3.14 4.20-5.40 10 6/uL Hemoglobin 9.0 12.0-16.0 g/dL Hematocrit 28.7 36.0-48.0 % Mean Corpuscular Volume 91.4 81.0-99.0 fL Mean Corpuscular Hemoglobin 28.7 26.7-34.0 pg Mean Corpuscular HGB Conc 31.4 29.9-35.2 g/dL Red Cell Distribution Width 16.5 11.0-15.0 % Platelet Count 164 150-450 10 3/uL Mean Platelet Volume 11.4 9.5-13.5 fL Neutrophils Percent Auto 81.3 43.0-75.0 % Lymphocytes Percent Auto 10.4 20.5-60.0 % Monocytes Percent Auto 4.8 1.7-12.0 % Eosinophils Percent Auto 2.5 0.9-7.0 % Basophils Percent Auto 0.3 0.2-2.0 % Immature Granulocytes Pct Auto 0.7 0.0-0.5 % Neutrophils Absolute Auto 7.8 1.4-6.5 10 3/uL Lymphocytes Absolute Auto 1.0 1.2-3.8 10 3/uL Monocytes Absolute Auto 0.5 0.3-0.8 10 3/uL Eosinophils Absolute Auto 0.2 0.0-0.7 10 3/uL Basophils Absolute Auto 0.0 0.0-0.1 10 3/uL Immature Granulocytes Abs Auto 0.07 0.00-0.03 10 3/uL Performing Lab: see note ML - [facility] Troponin I High Sensitivity Reviewed date:02/02/2024 10:16:00 AM Interpretation: Performing Lab: Notes/Report: [facility] , Troponin I High Sensitivity 79.7 4.0-51.3 pg/mL RESULTS CALLED TO RENEE HERMAN RN CUT-OFF POINTS HAVE BEEN ESTABLISHED BASED ON THE FOURTH UNIVERSAL DEFINITION OF MYOCARDIAL INFARCTION. THE UPPER REFERENCE LIMIT (URL) OF TROPONIN, DEFINED THE 99TH PERCENTILE OF cTnI DISTRIBUTION IN A REFERENCE POPULATION, HAS BEEN CONFIRMED THE DECISION THRESHOLD FOR PA DIAGNOSIS. 99TH PERCENTILE = 51.4 PG/ML NOTE: HIGH-SENSITIVITY TROPONIN ASSAY IS NOT INTENDED TO BE USED IN ISOLATION BUT SHOULD BE INTERPRETED IN CONJUNCTION WITH OTHER DIAGNOSTIC AND CLINICAL INFORMATION. Performing Lab: see note ML - [facility] CT angio abdomen pelvis Reviewed date:02/02/2024 10:16:00 AM Interpretation: Performing Lab: Notes/Report: Source Facility: [place] [address] CT Scan Report Signed Patient: ZACHARY MAYNARD MR#: [id number] : 1945 Acct:[id number] Age/Sex: 78 / F ADM Date: 02/01/24 Loc: ER Attending Dr: Ordering Physician: Tiffany Jamil Date of Service: 02/01/24 Procedure(s): CT angio abdomen pelvis Accession Number(s): [id number] cc: Velasquez Langley M.D. [place] [address] Patient Name: ZACHARY MAYNARD MRN: [id number] date: 1945 Sex: F Assigned Patient Location: ER Current Patient Location: ER Accession/Order Number: [id number] Exam Date: 02/01/2024 23:12 Report Date: 02/02/2024 00:41 At the request of: TIFFANY MARKER Procedure: CT angio abdomen pelvis CT ABDOMEN AND PELVIS WITH CONTRAST: INDICATION: post op AAA repair with abd pain. COMPARISON: CT abdomen and pelvis dated 10/19/2019. TECHNIQUE:Multiple thin section transaxial slices were acquired through the abdomen and pelvis with intravenous contrast. 3-D, Coronal and sagittal reconstructed images were reviewed. Oral contrastWas not administered. Images were obtained per CT angiogram protocol. FINDINGS: There is breathing motion artifact contributing to some image degradation of this examination. LOWER CHEST: There is smooth interlobular septal thickening in the lung bases consistent with a degree of interstitial edema. There are small bilateral pleural effusions, right greater than left. There is atelectasis in the adjacent lungs. There is a small hiatal hernia. LIVER: The liver is unremarkable. GALLBLADDER AND BILIARY SYSTEM: No obvious ductal dilation. There is cholelithiasis. SPLEEN: The spleen is unremarkable. PANCREAS: The pancreas is unremarkable. ADRENAL GLANDS: The adrenal glands are unremarkable. KIDNEYS AND URETERS: There is motion artifact which is contributing to image degradation of the kidneys. There is pelvocaliectasis of both kidneys with mild dilation of the proximal mid ureters. There are no obstructing urologic calcifications. There is also diminished enhancement along the inferior left kidney. There is significant motion of this portion of the kidney, and this could be artifact. However, the possibility of renal infarct cannot be excluded. VASCULATURE: An endograft is present within the abdominal aorta with extension into the common iliac arteries bilaterally. There is some air present within the wall of the thrombosed aorta from recent vascular intervention. There is no evidence of a leak within the limits of this examination. 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 PERITONEUM/RETROPERITONEUM: There is a trace amount of free fluid in the pelvis. LYMPH NODES: No suspicious lymphadenopathy. GASTROINTESTINAL TRACT: The bowel is normal in caliber.There is chronic colonic diverticulosis of the colon without acute inflammation.The appendix is not well delineated and may be absent or diminutive. BLADDER: There is a tiny focus of air in the anterior urinary bladder possibly iatrogenic. REPRODUCTIVE SYSTEM: The uterus is absent. BODY WALL: There is a tiny fat-containing umbilical hernia. BONES: There is mild endplate degenerative disc disease throughout the thoracolumbar spine. CT/CT angio abdomen pelvis IMPRESSION: 1. 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 No evidence of leak. 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 2. There is motion artifact degrading image quality, especially with the kidneys. There is hypodensity in the cortex of the lower left kidney which could be artifactual. The possibility of renal infarct cannot entirely be excluded. 3. Pelvic caliectasis of the kidneys and mild dilation of the mid and proximal ureters without obstructing urologic calcifications. This is nonspecific. Correlate with urinalysis for signs of underlying infectious process. 4. Mild interstitial edema in the lower chest with small bilateral pleural effusions. Electronically authenticated by: KAYLEIGH DANIELS Date: 02/02/2024 00:41 Dictated By: Kayleigh Daniels M.D. Signed By: 02/02/2442 DD/ TD/TT: Varnish Melter: [place] [address] CT Scan Report Signed Patient: DERECK MAYNARD MR#: [id number] : 1945 Acct:[id number] Age/Sex: 78 / F ADM Date: 02/01/24 Loc: ER Attending Dr: Ordering Physician: Tiffany Jamil Date of Service: 02/01/24 Procedure(s): CT ang io abdomen pelvis Accession Number(s): [id number] cc: Velasquez Langley M.D. [place] [id number] Patient Name: ZACHARY MAYNARD MRN: [id number] date: 1945 Sex: F Assigned Patient Location: ER Current Patient Loca tion: ER Accession/Order Numb er: [id number] Exam Date: 23:12 Report Date: 02/02/2024 00:41 At the request of: TIFFANY JAMIL Procedure: CT angio abdomen pelvis CT ABDOMEN AND PELVI S WITH CONTRAST: INDICATION: post op AAA repair with abd pain. COMPARISON: CT abdom en and pelvis dated 10/19/2019. TECHNIQUE:Multiple t hin section transaxial slices were acquired through the abdomen and pelvis w ith intravenous contrast. 3-D, Coronal and sagittal reconstructed images were reviewed. Oral contrastWas not administered. Images were obtained per CT angiogram protocol. FINDINGS: There is breathing motion artifact contributing to some image degradation of this examination. LOWER CHEST: There i s smooth interlobular septal thickening in the lung bases consistent with a de gree of interstitial edema. There are small bilateral pleural effusions, r ight greater than left. There is atelectasis in the adjacent lungs. Ther e is a small hiatal hernia. LIVER: The liver is unremarkable. GALLBLADDER AND BILI TONA SYSTEM: No obvious ductal dilation. There is cholelithiasis. SPLEEN: The spleen i s unremarkable. PANCREAS: The pancre as is unremarkable. ADRENAL GLANDS: The adrenal glands are unremarkable. KIDNEYS AND URETERS: There is motion artifact which is contributing to image degradation of the kidneys. There is pelvocaliectasis of both kidneys with mild dilation of the prox imal mid ureters. There are no obstructing urologic calcifications. Ther e is also diminished enhancement along the inferior left kidney. There is significant motion of this portion of the kidney, and this could be artifact. However, the possibility of renal infarct cannot be excluded. VASCULATURE: An endo graft is present within the abdominal aorta with extension into the common zora c arteries bilaterally. There is some air present within the wall of the thrombosed aorta from recent vascular intervention. There is no evidence of a leak w ithin the limits of this examination. 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 PERITONEUM/RETROPERI TONEU M: There is a trace amount of free fluid in the pelvis. LYMPH NODES: No suspicious lymphadenopathy. GASTROINTESTINAL TRA CT: The bowel is normal in caliber.There is chronic colonic diverticulosis of th e colon without acute inflammation.The appendix is not well delineated and may b e absent or diminutive. BLADDER: There is a tiny focus of air in the anterior urinary bladder possibly iatrogenic. REPRODUCTIVE SYSTEM: The uterus is absent. BODY WALL: There is a tiny fat-containing umbilical hernia. BONES: There is mild endplate degenerative disc disease throughout the thoracolumbar spine. C T/CT angio abdomen pelvis IMPRESSION: 1. Status post endog raft repair of the abdominal aortic aneurysm. Thrombosed wall. No evidence of leak. Aneurysmal dilation of the aortic lumen and surrounding jinny lum inal thrombus measure 5.6 x 5.5 cm. 2. There is motion artifact degrading image quality, especially with the kidneys. There is hypodensity in the cortex of the lower left kidney which could be artifactual . The possibility of renal infarct cannot entirely be excluded. 3. Pelvic caliectasi s of the kidneys and mild dilation of the mid and proximal ureters without obstructing urologic calcifications. This is nonspecific. Correlate with urina lysis for signs of underlying infectious process. 4. Mild interstitial edema in the lower chest with small bilateral pleural effusions. Electronically authenticated by: KAYLEIGH DANIELS Date: 02/02/2024 00:41 Dictated By: Kayleigh Daniels M.D. Signed By: 02/02/2442 DD/ TD/TT: Varnish Melter: CBC AUTO DIFF Reviewed date:02/16/2024 07:54:36 PM Interpretation: Performing Lab: Notes/Report: [facility] , White Blood Count 6.6 4.0-11.0 10 3/uL Red Blood Count 2.99 4.20-5.40 10 6/uL Hemoglobin 8.4 12.0-16.0 g/dL Hematocrit 27.3 36.0-48.0 % Mean Corpuscular Volume 91.3 81.0-99.0 fL Mean Corpuscular Hemoglobin 28.1 26.7-34.0 pg Mean Corpuscular HGB Conc 30.8 29.9-35.2 g/dL Red Cell Distribution Width 16.6 11.0-15.0 % Platelet Count 293 150-450 10 3/uL Mean Platelet Volume 11.3 9.5-13.5 fL Neutrophils Percent Auto 65.3 43.0-75.0 % Lymphocytes Percent Auto 16.8 20.5-60.0 % Monocytes Percent Auto 11.4 1.7-12.0 % Eosinophils Percent Auto 4.4 0.9-7.0 % Basophils Percent Auto 0.9 0.2-2.0 % Immature Granulocytes Pct Auto 1.2 0.0-0.5 % Neutrophils Absolute Auto 4.3 1.4-6.5 10 3/uL Lymphocytes Absolute Auto 1.1 1.2-3.8 10 3/uL Monocytes Absolute Auto 0.8 0.3-0.8 10 3/uL Eosinophils Absolute Auto 0.3 0.0-0.7 10 3/uL Basophils Absolute Auto 0.1 0.0-0.1 10 3/uL Immature Granulocytes Abs Auto 0.08 0.00-0.03 10 3/uL Performing Lab: see note ML - [facility] PROF CHEM 8 (BAS METB) Reviewed date:02/16/2024 07:54:36 PM Interpretation: Performing Lab: Notes/Report: [facility] , Sodium 142 136-145 mmol/L Potassium 4.9 3.5-5.1 mmol/L Chloride 105 98-107 mmol/L Carbon Dioxide 29.0 21.0-32.0 mmol/L Anion Gap 12.9 Glucose 117 74-106 mg/dL Blood Urea Nitrogen 20.0 7.0-18.0 mg/dL Creatinine 1.78 0.55-1.02 mg/dL Estimated GFR ( Marogt 33 >=60 mL/min/1.73m 2 Estimated GFR (Non- Marlen 27 >=60 mL/min/1.73m 2 BUN Creatinine Ratio 11.2 Calcium 9.2 8.5-10.1 mg/dL Performing Lab: see note ML - [facility] BNP Reviewed date:02/29/2024 05:39:20 PM Interpretation: Performing Lab: Notes/Report: [facility] , NT Pro B Type Natriuretic Pept 1827.0 <=1800.0 pg/mL RESULTS CALLED TO ROSA ANDRADE RN at 7 Performing Lab: see note ML - [facility] LB CBC AUTO DIFF Reviewed date:02/29/2024 05:39:20 PM Interpretation: Performing Lab: Notes/Report: [facility] , White Blood Count 5.0 4.0-11.0 10 3/uL Red Blood Count 3.15 4.20-5.40 10 6/uL Hemoglobin 8.8 12.0-16.0 g/dL Hematocrit 28.4 36.0-48.0 % Mean Corpuscular Volume 90.2 81.0-99.0 fL Mean Corpuscular Hemoglobin 27.9 26.7-34.0 pg Mean Corpuscular HGB Conc 31.0 29.9-35.2 g/dL Red Cell Distribution Width 16.9 11.0-15.0 % Platelet Count 173 150-450 10 3/uL Mean Platelet Volume 10.8 9.5-13.5 fL Neutrophils Percent Auto 53.7 43.0-75.0 % Lymphocytes Percent Auto 28.9 20.5-60.0 % Monocytes Percent Auto 8.9 1.7-12.0 % Eosinophils Percent Auto 7.5 0.9-7.0 % Basophils Percent Auto 0.6 0.2-2.0 % Immature Granulocytes Pct Auto 0.4 0.0-0.5 % Neutrophils Absolute Auto 2.7 1.4-6.5 10 3/uL Lymphocytes Absolute Auto 1.4 1.2-3.8 10 3/uL Monocytes Absolute Auto 0.4 0.3-0.8 10 3/uL Eosinophils Absolute Auto 0.4 0.0-0.7 10 3/uL Basophils Absolute Auto 0.0 0.0-0.1 10 3/uL Immature Granulocytes Abs Auto 0.02 0.00-0.03 10 3/uL Performing Lab: see note ML - [facility] LB LIPASE Reviewed date:02/29/2024 05:39:20 PM Interpretation: Performing Lab: Notes/Report: [facility] , Lipase 63.0 16.0-77.0 U/L Performing Lab: see note - [facility] LB PROF 14(COMP METB) Reviewed date:02/29/2024 05:39:20 PM Interpretation: Performing Lab: Notes/Report: [facility] , Sodium 145 136-145 mmol/L Potassium 4.3 3.5-5.1 mmol/L Chloride 108 98-107 mmol/L Carbon Dioxide 29.4 21.0-32.0 mmol/L Anion Gap 11.9 Glucose 151 74-106 mg/dL Blood Urea Nitrogen 25.0 7.0-18.0 mg/dL Creatinine 1.89 0.55-1.02 mg/dL Estimated GFR ( Margot 31 >=60 mL/min/1.73m 2 Estimated GFR (Non- Marlen 26 >=60 mL/min/1.73m 2 BUN Creatinine Ratio 13.2 Calcium 8.9 8.5-10.1 mg/dL Bilirubin Total 0.4 0.2-1.0 mg/dL Aspartate Amino Transferase 17 15-37 U/L Alanine Aminotransferase 13 14-59 U/L Alkaline Phosphatase 102 46-116 U/L Total Protein 6.2 6.4-8.2 g/dL Albumin Level 2.9 3.4-5.0 g/dL Globulin 3.3 Albumin Globulin Ratio 0.9 Performing Lab: see note - [facility] Prothrombin Time INR Reviewed date:02/29/2024 05:39:20 PM Interpretation: Performing Lab: Notes/Report: [facility] , Prothrombin Time 11.1 9.0-11.6 sec INR 1.05 DESIRED INR: 2.0-3.0 CONDITIONS NOT LISTED BELOW 2.5-3.5 FOR PROSTHETIC HEART VALVE REPLACEMENT 2.5-3.5 RECURRENT THROMBOSIS Performing Lab: see note [facility] Troponin I High Sensitivity Reviewed date:02/29/2024 05:39:20 PM Interpretation: Performing Lab: Notes/Report: [facility] , Troponin I High Sensitivity 8.4 4.0-51.3 pg/mL CUT-OFF POINTS HAVE BEEN ESTABLISHED BASED ON THE FOURTH UNIVERSAL DEFINITION OF MYOCARDIAL INFARCTION. THE UPPER REFERENCE LIMIT (URL) OF TROPONIN, DEFINED THE 99TH PERCENTILE OF cTnI DISTRIBUTION IN A REFERENCE POPULATION, HAS BEEN CONFIRMED THE DECISION THRESHOLD FOR PA DIAGNOSIS. 99TH PERCENTILE = 51.4 PG/ML NOTE: HIGH-SENSITIVITY TROPONIN ASSAY IS NOT INTENDED TO BE USED IN ISOLATION BUT SHOULD BE INTERPRETED IN CONJUNCTION WITH OTHER DIAGNOSTIC AND CLINICAL INFORMATION. Performing Lab: see note - [facility] LB ECG 12 lead Reviewed date:02/29/2024 05:39:19 PM Interpretation: Performing Lab: Notes/Report: Source Facility: [facility]-[address] [place] [address] [place] [address] Electrocardiograph Report Signed Patient: ZACHARY MAYNARD MR#: [id number] : 1945 Acct:[id number] Age/Sex: 78 / F ADM Date: 02/25/24 Loc: ER Attending Dr: Ordering Physician: Denisha Guzman Date of Service: 02/25/24 Procedure(s): ECG 12 lead Accession Number(s): [id number] cc: [facility] Test Date: 2024-02-25 Pat Name: ZACHARY MAYNARD Department: Room: - 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 Signed By: 02/28/24 08 DD/ 57 TD/TT: Varnish Melter: CT chest wo con Reviewed date:02/29/2024 05:39:19 PM Interpretation: Performing Lab: Notes/Report: Source Facility: [place] [address] CT Scan Report Signed Patient: ZACHARY MAYNARD MR#: [id number] : 1945 Acct:[id number] Age/Sex: 78 / F ADM Date: 02/25/24 Loc: ER Attending Dr: Ordering Physician: Denisha Guzman Date of Service: 02/25/24 Procedure(s): CT chest wo con Accession Number(s): [id number] cc: Velasquez Langley M.D. [place] [address] Patient Name: ZACHARY MAYNARD MRN: [id number] date: 1945 Sex: F Assigned Patient Location: ER Current Patient Location: ER Accession/Order Number: [id number] Exam Date: 02/25/2024 19:38 Report Date: 02/25/2024 20:08 At the request of: DENISHA GUZMAN Procedure: CT chest wo con EXAMINATION: CT chest wo con, CT abdomen pelvis wo con HISTORY: Epigastric discomfort; AAA repair COMPARISON: CT abdomen pelvis 02/01/2024, CT chest 12/03/2023 TECHNIQUE: Axial, Coronal, and Sagittal CT images were obtained without and/or with IV contrast as indicated by examination type. Dose reduction techniques were achieved by using automated exposure control and/or adjustment of mA and/or kV according to patient size and/or use of iterative reconstruction technique. FINDINGS: LUNGS: Mild emphysematous changes. No acute infiltrates or suspicious nodules. PLEURA: No mass or effusion. VASCULATURE: No visible pulmonary arterial thrombus or attenuation. DAWN: No mass or adenopathy. MEDIASTINUM: No mass or adenopathy. CARDIAC: No enlargement, pericardial thickening, or pericardial effusion. AORTA: Saccular aneurysm projecting from the inferior-left lateral margin of the proximal aortic arch, 2.3 cm in diameter projecting 1.3 cm external to the expected location of the wall. CORONARY ARTERY CALCIFICATIONS: Coronary calcifications are mild. CHEST WALL: No mass or axillary adenopathy. LIVER: No enlargement, atrophy, abnormal density, or significant focal lesion. BILIARY: Multiple 1 cm stones and dense bile within noninflamed gallbladder. PANCREAS: No lesion, fluid collection, ductal dilatation, or atrophy. SPLEEN: No enlargement or focal lesion. ADRENALS: No mass or enlargement. KIDNEYS: No mass, obstruction, or calcification. BOWEL/MESENTERY: Numerous large diverticula involving the descending and sigmoid colon with slight haziness of the pericolonic fat. AORTA/VASCULAR: 5.8 x 5.5 cm fusiform aneurysmal dilation of the infrarenal aorta with prior aortobifemoral endograft stent placement. RETROPERITONEUM: No mass or adenopathy. LYMPH NODES: No adenopathy. URINARY BLADDER: No visible focal wall thickening, lesion, or calculus. PELVIC ORGANS: Hysterectomy. ABDOMINAL WALL: No mass or hernia. BONES: Slight avascular necrosis involving weightbearing surface of the femoral heads. OTHER: Negative. CT/CT chest wo con IMPRESSION: 1. 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 2. Stable large fusiform abdominal aortic aneurysm with prior aorto bifemoral endograft stent placement. No evidence of leakage. 3. Mild emphysematous changes. 4. Cholelithiasis. 5. Distal colonic diverticulosis. Possible mild acute diverticulitis involving the distal descending colon. 6. 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 Electronically authenticated by: RENATA SWEENEY Date: 02/25/2024 20:08 Dictated By: Renata Sweeney M.D. Signed By: 02/25/242010 DD/ 07 TD/TT: Varnish Melter: [place] [address] CT Scan Report Signed Patient: DERECK MAYNARD MR#: [id number] : 1945 Acct:[id number] Age/Sex: 78 / F ADM Date: 02/25/24 Loc: ER Attending Dr: Ordering Physician: Denisha Guzman Date of Service: 02/25/24 Procedure(s): CT nai st wo con Accession Number(s): [id number] cc: Velasquez Langley M.D. [address] [address] Patient Name: ZACHARY MAYNARD MRN: [id number] date: 1945 Sex: F Assigned Patient Location: ER Current Patient Loca tion: ER Accession/Order Numb er: [id number] Exam Date: 02/25/2024 19:38 Report Date: 02/25/2024 20:08 At the request of: DENISHA GUZMAN Procedure: CT chest wo con EXAMINATION: CT ches t wo con, CT abdomen pelvis wo con HISTORY: Epigastric discomfort; AAA repair COMPARISON: CT abdom en pelvis 02/01/2024, CT chest 12/03/2023 TECHNIQUE: Axial, Coronal, and Sagittal CT images were obtained without and/or with IV contrast as indicated by examination type. Dose reduction techniques were achieved by usi ng automated exposure control and/or adjustment of mA and/or kV according to patient size and/or use of iterative reconstruction technique. FINDINGS: LUNGS: Mild emphysem atous changes. No acute infiltrates or suspicious nodules. PLEURA: No mass or effusion. VASCULATURE: No visi ble pulmonary arterial thrombus or attenuation. DAWN: No mass or adenopathy. MEDIASTINUM: No mass or adenopathy. CARDIAC: No enlargem ent, pericardial thickening, or pericardial effusion. AORTA: Saccular aneu rysm projecting from the inferior-left lateral margin of the proximal aortic arch, 2.3 cm in diameter projecting 1.3 cm external to the expected location of the wall. CORONARY ARTERY CALCIFICATIONS: Coronary calcifications are mild. CHEST WALL: No mass or axillary adenopathy. LIVER: No enlargemen t, atrophy, abnormal density, or significant focal lesion. BILIARY: Multiple 1 cm stones and dense bile within noninflamed gallbladder. PANCREAS: No lesion, fluid collection, ductal dilatation, or atrophy. SPLEEN: No enlargeme nt or focal lesion. ADRENALS: No mass or enlargement. KIDNEYS: No mass, obstruction, or calcification. BOWEL/MESENTERY: Num erous large diverticula involving the descending and sigmoid colon with s light haziness of the pericolonic fat. AORTA/VASCULAR: 5.8 x 5.5 cm fusiform aneurysmal dilation of the infrarenal aorta with prior aortobifemoral endograft stent placement. RETROPERITONEUM: No mass or adenopathy. LYMPH NODES: No adenopathy. URINARY BLADDER: No visible focal wall thickening, lesion, or calculus. PELVIC ORGANS: Hysterectomy. ABDOMINAL WALL: No m ass or hernia. BONES: Slight avascu lar necrosis involving weightbearing surface of the femoral heads. OTHER: Negative. C T/CT chest wo con IMPRESSION: 1. Grossly stable sm all saccular aneurysm involving the proximal aortic arch. 2. Stable large fusi form abdominal aortic aneurysm with prior aorto bifemoral endograft stent placement. No evidence of leakage. 3. Mild emphysematou s changes. 4. Cholelithiasis. 5. Distal colonic diverticulosis. Possible mild acute diverticulitis involving the distal descendin g colon. 6. 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 Electronically authenticated by: RENATA SWEENEY Date: 02/25/2024 20:08 Dictated By: Renata Sweeney M.D. Signed By: 02/25/242010 DD/ 07 TD/TT: Varnish Melter: CT abdomen pelvis wo con Reviewed date:02/29/2024 05:39:20 PM Interpretation: Performing Lab: Notes/Report: Source Facility: [place] [address] CT Scan Report Signed Patient: ZACHARY MAYNARD MR#: [id number] : 1945 Acct:[id number] Age/Sex: 78 / F ADM Date: 02/25/24 Loc: ER Attending Dr: Ordering Physician: Denisha Guzman Date of Service: 02/25/24 Procedure(s): CT abdomen pelvis wo con Accession Number(s): [id number] cc: Velasquez Lanlgey M.D. [place] [address] Patient Name: ZACHARY MAYNARD MRN: [id number] date: 1945 Sex: F Assigned Patient Location: ER Current Patient Location: ER Accession/Order Number: [id number] Exam Date: 02/25/2024 19:38 Report Date: 02/25/2024 20:08 At the request of: DENISHA GUZMAN Procedure: CT abdomen pelvis wo con EXAMINATION: CT chest wo con, CT abdomen pelvis wo con HISTORY: Epigastric discomfort; AAA repair COMPARISON: CT abdomen pelvis 02/01/2024, CT chest 12/03/2023 TECHNIQUE: Axial, Coronal, and Sagittal CT images were obtained without and/or with IV contrast as indicated by examination type. Dose reduction techniques were achieved by using automated exposure control and/or adjustment of mA and/or kV according to patient size and/or use of iterative reconstruction technique. FINDINGS: LUNGS: Mild emphysematous changes. No acute infiltrates or suspicious nodules. PLEURA: No mass or effusion. VASCULATURE: No visible pulmonary arterial thrombus or attenuation. DAWN: No mass or adenopathy. MEDIASTINUM: No mass or adenopathy. CARDIAC: No enlargement, pericardial thickening, or pericardial effusion. AORTA: Saccular aneurysm projecting from the inferior-left lateral margin of the proximal aortic arch, 2.3 cm in diameter projecting 1.3 cm external to the expected location of the wall. CORONARY ARTERY CALCIFICATIONS: Coronary calcifications are mild. CHEST WALL: No mass or axillary adenopathy. LIVER: No enlargement, atrophy, abnormal density, or significant focal lesion. BILIARY: Multiple 1 cm stones and dense bile within noninflamed gallbladder. PANCREAS: No lesion, fluid collection, ductal dilatation, or atrophy. SPLEEN: No enlargement or focal lesion. ADRENALS: No mass or enlargement. KIDNEYS: No mass, obstruction, or calcification. BOWEL/MESENTERY: Numerous large diverticula involving the descending and sigmoid colon with slight haziness of the pericolonic fat. AORTA/VASCULAR: 5.8 x 5.5 cm fusiform aneurysmal dilation of the infrarenal aorta with prior aortobifemoral endograft stent placement. RETROPERITONEUM: No mass or adenopathy. LYMPH NODES: No adenopathy. URINARY BLADDER: No visible focal wall thickening, lesion, or calculus. PELVIC ORGANS: Hysterectomy. ABDOMINAL WALL: No mass or hernia. BONES: Slight avascular necrosis involving weightbearing surface of the femoral heads. OTHER: Negative. CT/CT abdomen pelvis wo con IMPRESSION: 1. 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 2. Stable large fusiform abdominal aortic aneurysm with prior aorto bifemoral endograft stent placement. No evidence of leakage. 3. Mild emphysematous changes. 4. Cholelithiasis. 5. Distal colonic diverticulosis. Possible mild acute diverticulitis involving the distal descending colon. 6. 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 Electronically authenticated by: RENATA SWEENEY Date: 02/25/2024 20:08 Dictated By: Renata Sweeney M.D. Signed By: 02/25/242010 DD/ 07 TD/TT: Varnish Melter: [place] [address] CT Scan Report Signed Patient: DERECK MAYNARD MR#: [id number] : 1945 Acct:[id number] Age/Sex: 78 / F ADM Date: 02/25/24 Loc: ER Attending Dr: Ordering Physician: Denisha Guzman Date of Service: 02/25/24 Procedure(s): CT abd omen pelvis wo con Accession Number(s): [id number] cc: Velasquez Langley M.D. [place] [address] Patient Name: ZACHARY MAYNARD MRN: [id number] date: 1945 Sex: F Assigned Patient Location: ER Current Patient Loca tion: ER Accession/Order Numb er: [id number] Exam Date: 02/25/2024 19:38 Report Date: 02/25/2024 20:08 At the request of: DENISHA GUZMAN Procedure: CT abdome n pelvis wo con EXAMINATION: CT ches t wo con, CT abdomen pelvis wo con HISTORY: Epigastric discomfort; AAA repair COMPARISON: CT abdom en pelvis 02/01/2024, CT chest 12/03/2023 TECHNIQUE: Axial, Coronal, and Sagittal CT images were obtained without and/or with IV contrast as indicated by examination type. Dose reduction techniques were achieved by [facility] automated exposure control and/or adjustment of mA and/or kV according to patient size and/or use of iterative reconstruction technique. FINDINGS: LUNGS: Mild emphysem atous changes. No acute infiltrates or suspicious nodules. PLEURA: No mass or effusion. VASCULATURE: No visi ble pulmonary arterial thrombus or attenuation. DAWN: No mass or adenopathy. MEDIASTINUM: No mass or adenopathy. CARDIAC: No enlargem ent, pericardial thickening, or pericardial effusion. AORTA: Saccular aneu rysm projecting from the inferior-left lateral margin of the proximal aortic arch, 2.3 cm in diameter projecting 1.3 cm external to the expected location of the wall. CORONARY ARTERY CALCIFICATIONS: Coronary calcifications are mild. CHEST WALL: No mass or axillary adenopathy. LIVER: No enlargemen t, atrophy, abnormal density, or significant focal lesion. BILIARY: Multiple 1 cm stones and dense bile within noninflamed gallbladder. PANCREAS: No lesion, fluid collection, ductal dilatation, or atrophy. SPLEEN: No enlargeme nt or focal lesion. ADRENALS: No mass or enlargement. KIDNEYS: No mass, obstruction, or calcification. BOWEL/MESENTERY: Num erous large diverticula involving the descending and sigmoid colon with s light haziness of the pericolonic fat. AORTA/VASCULAR: 5.8 x 5.5 cm fusiform aneurysmal dilation of the infrarenal aorta with prior aortobifemoral endograft stent placement. RETROPERITONEUM: No mass or adenopathy. LYMPH NODES: No adenopathy. URINARY BLADDER: No visible focal wall thickening, lesion, or calculus. PELVIC ORGANS: Hysterectomy. ABDOMINAL WALL: No m ass or hernia. BONES: Slight avascu lar necrosis involving weightbearing surface of the femoral heads. OTHER: Negative. C T/CT abdomen pelvis wo con IMPRESSION: 1. Grossly stable sm all saccular aneurysm involving the proximal aortic arch. 2. Stable large fusi form abdominal aortic aneurysm with prior aorto bifemoral endograft stent placement. No evidence of leakage. 3. Mild emphysematou s changes. 4. Cholelithiasis. 5. Distal colonic diverticulosis. Possible mild acute diverticulitis involving the distal descendin g colon. 6. 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 Electronically authenticated by: RENATA SWEENEY Date: 02/25/2024 20:08 Dictated By: Renata Sweeney M.D. Signed By: 02/25/242010 DD/ 07 TD/TT: Varnish Melter: US venous doppler UE RT Reviewed date:04/01/2024 07:57:13 AM Interpretation: Performing Lab: Notes/Report: Source Facility: [place] [address] [place] [address] Ultrasound Report Signed Patient: ZACHARY MAYNARD MR#: [id number] : 1945 Acct:[id number] Age/Sex: 78 / F ADM Date: 03/31/24 Loc: RAD Attending Dr: Velasquez Langley M.D. Ordering Physician: Velasquez Langley M.D. Date of Service: 03/31/24 Procedure(s): US venous doppler UE LT Accession Number(s): [id number] cc: Velasquez Langley M.D. [place] [address] Patient Name: ZACHARY MAYNARD MRN: [id number] date: 1945 Sex: F Assigned Patient Location: [facility] Current Patient Location: Accession/Order Number: [id number] Exam Date: 03/31/2024 16:27 Report Date: 04/01/2024 07:35 At the request of: VELASQUEZ LANGLEY Procedure: US venous doppler UE LT EXAM: US venous doppler UE LT HISTORY: LEFT ARM PAIN M79.602 COMPARISON: None. TECHNIQUE: Grayscale, color and Doppler FINDINGS: Region: Left arm Thrombus: None Flow: Normal Compressibility: Normal Augmentation: Normal In the region of patient's palpable abnormality, medial antecubital fossa a 0.8 x 0.4 x 0.6 cm area of focal hyperechogenicity is observed, this appears to be within the muscle and is indeterminate. US/US venous doppler UE LT IMPRESSION: No deep or superficial vein thrombus in the left arm 0.8 cm hyperechoic focus in the region of the patient's palpable abnormality, indeterminate. Electronically authenticated by: VALERIO HOOKER Date: 04/01/2024 07:35 Dictated By: Valerio Hooker M.D. Signed By: 04/01/2438 DD/ TD/TT: Varnish Melter: [place] [address] Ultrasound Report Signed Patient: DERECK MAYNARD MR#: [id number] : 1945 Acct:[id number] Age/Sex: 78 / F ADM Date: 03/31/24 Loc: RAD Attending Dr: Sy Langley M.D. Ordering Physician: Velasquez Langley M.D. Date of Service: 03/31/24 Procedure(s): US landon ous doppler UE LT Accession Number(s): [id number] cc: Velasquez Langley M.D. [place] [address] Patient Name: ZACHARY MAYNARD MRN: [id number] date: 1945 Sex: F Assigned Patient Location: [facility] Current Patient Location: Accession/Order Numb er: [id number] Exam Date: 03/31/2024 16:27 Report Date: 04/01/2024 07:35 At the request of: VELASQUEZ LANGLEY Procedure: US venous doppler UE LT EXAM: US venous dopp ler UE LT HISTORY: LEFT ARM PA IN M79.602 COMPARISON: None. TECHNIQUE: Grayscale , color and Doppler FINDINGS: Region: Left arm Thrombus: None Flow: Normal Compressibility: Normal Augmentation: Normal In the region of patient's palpable abnormality, medial antecubital fossa a 0.8 x 0.4 x 0.6 cm area of focal hyperechogenicity is observed, this appears to be within the muscle an d is indeterminate. U S/US venous doppler UE LT IMPRESSION: No deep or superfici al vein thrombus in the left arm 0.8 cm hyperechoic f ocus in the region of the patient's palpable abnormality, indeterminate. Electronically authenticated by: VALERIO HOOKER Date: 04/01/2024 07:35 Dictated By: Leonidas Hooker M.D. Signed By: 04/01/24 0738 DD/ 0735 TD/TT: Varnish Melter: LIPID PROFILE Reviewed date:07/27/2024 04:20:30 PM Interpretation: Performing Lab: Notes/Report: [facility] , Triglycerides 156 <=150 mg/dL Cholesterol 184 <=200 mg/dL HDL Cholesterol 55 40-60 mg/dL > or =60 mg/dl - LOW CARDIOVASCULAR RISK <40 mg/dl - HIGH CARDIOVASCULAR RISK LDL Cholesterol Calculated 98.0 <100 mg/dl OPTIMAL 100-129 mg/dl NEAR OR ABOVE OPTIMAL 130-159 mg/dl BORDERLINE HIGH 160-189 mg/dl HIGH >190 mg/dl VERY HIGH VLDL CHOLESTEROL 31.2 Chol HDL Ratio 3.3 3.3 - 4.4 LOW RISK 4.4 - 7.1 AVERAGE RISK 7.1 - 11.0 MODERATE RISK >11.0 HIGH RISK Performing Lab: see note ML - [facility] LB SGOT Reviewed date:07/27/2024 04:20:30 PM Interpretation: Performing Lab: Notes/Report: [facility] , Aspartate Amino Transferase 18 15-37 U/L Performing Lab: see note ML - [facility] LB SGPT Reviewed date:07/27/2024 04:20:30 PM Interpretation: Performing Lab: Notes/Report: [facility] , Alanine Aminotransferase 26 14-59 U/L Performing Lab: see note - [facility] XR wrist LT min 3V Reviewed date:04/04/2024 11:16:15 AM Interpretation: Performing Lab: Notes/Report: Source Facility: [place] [address] XRay Report Signed Patient: ZACHARY MAYNARD MR#: [id number] : 1945 Acct:[id number] Age/Sex: 78 / F ADM Date: 04/01/24 Loc: RAD Attending Dr: Velasquez Langley M.D. Ordering Physician: Velasquez Langley M.D. Date of Service: 04/01/24 Procedure(s): XR wrist LT min 3V Accession Number(s): [id number] cc: Velasquez Langley M.D. [place] [address] Patient Name: ZACHARY MAYNARD MRN: [id number] date: 1945 Sex: F Assigned Patient Location: RAD Current Patient Location: RAD Accession/Order Number: [id number] Exam Date: 04/01/2024 16:08 Report Date: 04/01/2024 21:52 At the request of: VELASQUEZ LANGLEY Procedure: XR wrist LT min 3V EXAM: XR wrist LT min 3V HISTORY: Left wrist pain, M25.532 COMPARISON: None. TECHNIQUE: 3 views of the left wrist were obtained. FINDINGS: There is no evidence of an acute fracture or dislocation. The joint spaces are intact throughout. Ulnar minus variance is present. Small soft tissue calcifications are seen in the along the anterior and radial aspect of the distal radius. These are of uncertain significance. The soft tissues otherwise intact. XR/XR wrist LT min 3V IMPRESSION: No acute fracture or dislocation. The joint spaces are intact. Small soft tissue calcifications are present. Comparison with a previous study may be helpful in confirming the chronicity of these findings. Electronically authenticated by: TIMOTHY CHAMBERS Date: 04/01/2024 21:52 Dictated By: Timothy Chambers M.D. Signed By: 04/01/242153 DD/ 51 TD/TT: Varnish Melter: [place] [address] XRay Report Signed Patient: DERECK MAYNARD MR#: [id number] : 1945 Acct:[id number] Age/Sex: 78 / F ADM Date: 04/01/24 Loc: RAD Attending Dr: Sy Langley M.D. Ordering Physician: Velasquez Langley M.D. Date of Service: 04/01/24 Procedure(s): XR wri st LT min 3V Accession Number(s): [id number] cc: Velasquez Langley M.D. [place] [id number] Patient Name: ZACHARY MAYNARD MRN: [id number] date: 1945 Sex: F Assigned Patient Location: RAD Current Patient Loca tion: RAD Accession/Order Numb er: [id number] Exam Date: 04/01/2024 16:08 Report Date: 04/01/2024 21:52 At the request of: VELASQUEZ LANGLEY Procedure: XR wrist LT min 3V EXAM: XR wrist LT min 3V HISTORY: Left wrist pain, M25.532 COMPARISON: None. TECHNIQUE: 3 views o f the left wrist were obtained. FINDINGS: There is n o evidence of an acute fracture or dislocation. The joint spaces are intact throughout. Ulnar minus variance is present. Small soft tissue calcification s are seen in the along the anterior and radial aspect of the distal radius. T hese are of uncertain significance. The soft tissues otherwise intact. X R/XR wrist LT min 3V IMPRESSION: No acute fracture or dislocation. The joint spaces are intact. Small soft tissue calcification s are present. Comparison with a previous study may be helpful in confirmin g the chronicity of these findings. Electronically authenticated by: TIMOTHY CHAMBERS Date: 04/01/2024 21:52 Dictated By: Leslie Chambers M.D. Signed By: 04/01/242153 DD/ 51 TD/TT: Varnish Melter: US abdominal aortic aneurysm Reviewed date:01/06/2024 06:36:05 PM Interpretation: Performing Lab: Notes/Report: Source Facility: [place] [address] Ultrasound Report Signed Patient: ZACHARY MAYNARD MR#: [id number] : 1945 Acct:[id number] Age/Sex: 78 / F ADM Date: 01/06/24 Loc: US Attending Dr: Dipti Fulton M.D. Ordering Physician: Dipti Fulton M.D. Date of Service: 01/06/24 Procedure(s): US abdominal aortic aneurysm Accession Number(s): [id number] cc: Velasquez Langley M.D.; Dipti Fulton M.D. [place] [address] Patient Name: ZACHARY MAYNARD MRN: [id number] date: 1945 Sex: F Assigned Patient Location: US Current Patient Location: US Accession/Order Number: [id number] Exam Date: 01/06/2024 08:00 Report Date: 01/06/2024 12:53 At the request of: DIPTI FULTON Procedure: US abdominal aortic aneurysm EXAM: US abdominal aortic aneurysm HISTORY: Infrarenal Abdominal Aortic Aneurysm COMPARISON: None. TECHNIQUE: Real-time ultrasound imaging of the aorta. FINDINGS: There is aneurysmal dilatation of the abdominal aorta with specific aortic measurements as follows: Proximally 2.8 x 3.1 cm. Mid: 5.5 x 5.8 cm. Distally: 2.1 x 2.0 cm. The right and left common iliac arteries measure 1.3 x 1.5 cm. Impression 1. Abdominal aortic aneurysm measuring upwards of 5.8 cm. Electronically authenticated by: FOX ACEVEDO Date: 01/06/2024 12:53 Dictated By: Fox Acevedo M.D. Signed By: 01/06/24 1256 DD/ 1253 TD/TT: Varnish Melter: [place] [address] Ultrasound Report Signed Patient: DERECK MAYNARD MR#: [id number] : 1945 Acct:[id number] Age/Sex: 78 / F ADM Date: 01/06/24 Loc: US Attending Dr: Dipti Fulton M.D. Ordering Physician: Dipti Fulton M.D. Date of Service: 01/06/24 Procedure(s): US abdominal aortic aneurysm Accession Number(s): [id number] cc: Velasquez Langley M.D. ; Dipti Fulton M.D. [place] [id number] Patient Name: ZACHARY MAYNARD MRN: [id number] date: 1945 Sex: F Assigned Patient Location: US Current Patient Loca tion: US Accession/Order Numb er: [id number] Exam Date: 08:00 Report Date: 01/06/2024 12:53 At the request of: DIPTI FULTON Procedure: US abdomi nal aortic aneurysm EXAM: US abdominal a ortic aneurysm HISTORY: Infrarenal Abdominal Aortic Aneurysm COMPARISON: None. TECHNIQUE: Real-time ultrasound imaging of the aorta. FINDINGS: There is aneurysmal dilatation of the abdominal aorta with specific aortic measurements as follows: Proximally 2.8 x 3.1 cm. Mid: 5.5 x 5.8 cm. Distally: 2.1 x 2.0 cm. The right and left c ommon iliac arteries measure 1.3 x 1.5 cm. Impression 1. Abdominal aortic aneurysm measuring upwards of 5.8 cm. Electronically authenticated by: FOX ACEVEDO Date: 01/06/2024 12:53 Dictated By: Fox Acevedo M.D. Signed By: 01/06/24 1256 DD/ 1253 TD/TT: Varnish Melter: [place] 30 day event monitor Reviewed date:12/28/2023 11:21:17 AM Interpretation: Performing Lab: Notes/Report: Source Facility: [place] [address] [place] [address] Cardiology Report Signed Patient: ZACHARY MAYNARD MR#: [id number] : 1945 Acct:[id number] Age/Sex: 78 / F ADM Date: 11/26/23 Loc: MS 220- Attending Dr: Velasquez Langley M.D. Ordering Physician: Velasquez Langley M.D. Date of Service: 11/28/23 Procedure(s): [place] 30 day event monitor Accession Number(s): [id number] cc: Velasquez Langley M.D. [facility] Test Date: 2023-12-25 Pat Name: ZACHARY MAYNARD Department: Room: [facility] Gender: Female 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: : 1945 Requested By: VELASQUEZ LANGLEY Order Number: [id number] Reading MD: RYAN ROMERO Interpretive Statements Predominant rhythm is sinus w/ average rate of 63 bpm Tachycardia - max rate of 118 bpm Bradycardia - min rate of 49 bpm Ventricular ectopy - < 1% total IMpression: Predominant rhythm is sinus w/ average rate of 63 bpm Fastest rate of 118 bpm and slowest rate of 49 bpm < 1% VE burden No atrial fibrillation NO pauses Electronically Signed On 12-26-2023 6:53:44 EDT by RYAN ROMERO Dictated By: Ryan Romero D.O. Signed By: 12/26/2365312/26/23653 DD/ 6 TD/TT: Varnish Melter: [place] [address] Cardiology Report Signed Patient: DERECK MAYNARD MR#: [id number] : 1945 Acct:[id number] Age/Sex: 78 / F ADM Date: 11/26/23 Loc: MS 220- Attending Dr: Sy Langley M.D. Ordering Physician: Velasquez Langley M.D. Date of Service: 11/28/23 Procedure(s): [place] 30 day event monitor Accession Number(s): [id number] cc: Velasquez Langley M.D. [facility] Test Date: 2023-12-25 Pat Name: ZACHARY ANDREA Department: 06 Room: [facility] Gender: Female 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: : 1945 Requ ested By: VELASQUEZ LANGLEY Order Number: [id number] Reading MD: RYAN ROMERO Interpretive Statements Predominant rhythm i s sinus w/ average rate of 63 bpm Tachycardia - max rate of 118 bpm Bradycardia - min rate of 49 bpm Ventricular ectopy - < 1% total IMpression: Predominant rhythm i s sinus w/ average rate of 63 bpm Fastest rate of 118 bpm and slowest rate of 49 bpm < 1% VE burden No atrial fibrillation NO pauses Electronically Martine d On 12-26-2023 6:53:44 EDT by RYAN ROMERO Dictated By: Ryan Romero D.O. Signed By: 12/26/2354 12/26/2354 DD/ 6 TD/TT: Varnish Melter: SEGMENTAL PRESSURES Reviewed date:12/08/2023 08:10:48 PM Interpretation: Performing Lab: Notes/Report: Source Facility: [place] [address] [place] [address] Vein Report Signed Patient: ZACHARY MAYNARD MR#: [id number] : 1945 Acct:[id number] Age/Sex: 78 / F ADM Date: 12/08/23 Loc: VC Attending Dr: Velasquez Langley M.D. Ordering Physician: Velasquez Langley M.D. Date of Service: 12/08/23 Procedure(s): VC SEGMENTAL PRESSURES Accession Number(s): [id number] cc: Velasquez Langley M.D. The [place] [id number] Patient Name: ZACHARY MAYNARD MRN: [id number] date: 1945 Sex: F Assigned Patient Location: Current Patient Location: VC Accession/Order Number: [id number] Exam Date: 12/08/2023 13:03 Report Date: 12/08/2023 13:42 At the request of: VELASQUEZ LANGLEY Procedure: VC SEGMENTAL PRESSURES EXAM: VC SEGMENTAL PRESSURES HISTORY: R09.89 COMPARISON: None. FINDINGS: Segmental pressures presented as follows (right, left) in mmHg. Brachial: Not obtained due to diabetic monitoring device, 149 Upper thigh: 171, 194 Lower thigh: 136, 140 Calf: 137, 137 DPA: 141, 122 ARMED SECURITY GUARD: 147, 132 1st Toe: 119, 116 KORY: 0.99, 0.89 TBI: 0.8, 0.78 The ABIs are Normal The TBI's are normal PVR waveforms: Right leg: Thigh: Normal Above knee: Normal Below knee: Normal Right ankle: Normal First metatarsal: Normal Left leg: Thigh: Normal Above knee: Normal Below knee: Normal Right ankle: Normal First metatarsal: Normal VEIN/VC SEGMENTAL PRESSURES IMPRESSION: Normal exam Electronically authenticated by: VALERIO HOOKER Date: 12/08/2023 13:42 Dictated By: Valerio Hooker M.D. Signed By: 12/08/23 1344 DD/ 1342 TD/TT: Varnish Melter: [place] [address] Vein Report Signed Patient: DERECK MAYNARD MR#: [id number] : 1945 Acct:[id number] Age/Sex: 78 / F ADM Date: 12/08/23 Loc: VC Attending Dr: Sy Langley M.D. Ordering Physician: Velasquez Langley M.D. Date of Service: 12/08/23 Procedure(s): VC SEGMENTAL PRESSURES Accession Number(s): [id number] cc: Velasquez Langley M.D. The [address] [address] Patient Name: ZACHARY MAYNARD MRN: [id number] date: 1945 Sex: F Assigned Patient Location: VC Current Patient Loca tion: VC Accession/Order Numb er: [id number] Exam Date: 13:03 Report Date: 12/08/2023 13:42 At the request of: VELASQUEZ LANGLEY Procedure: VC SEGMEN YNES PRESSURES EXAM: VC SEGMENTAL PRESSURES HISTORY: R09.89 COMPARISON: None. FINDINGS: Segmental pressures presented as follows (right, left) in mmHg. Brachial: Not obtain ed due to diabetic monitoring device, 149 Upper thigh: 171, 194 Lower thigh: 136, 140 Calf: 137, 137 DPA: 141, 122 ARMED SECURITY GUARD: 147, 132 1st Toe: 119, 116 KORY: 0.99, 0.89 TBI: 0.8, 0.78 The ABIs are Normal The TBI's are normal PVR waveforms: Right leg: Thigh: Normal Above knee: Normal Below knee: Normal Right ankle: Normal First metatarsal: Normal Left leg: Thigh: Normal Above knee: Normal Below knee: Normal Right ankle: Normal First metatarsal: Normal VEIN/VC SEGMENTAL PRESSURES IMPRESSION: Normal exam Electronically authenticated by: VALERIO HOOKER Date: 12/08/2023 13:42 Dictated By: Leonidas Hooker M.D. Signed By: 12/08/23 1344 DD/ 1342 TD/TT: Varnish Melter: Troponin I High Sensitivity Reviewed date:12/04/2023 04:51:40 PM Interpretation: Performing Lab: Notes/Report: [facility] , Troponin I High Sensitivity 8.0 4.0-51.3 pg/mL CUT-OFF POINTS HAVE BEEN ESTABLISHED BASED ON THE FOURTH UNIVERSAL DEFINITION OF MYOCARDIAL INFARCTION. THE UPPER REFERENCE LIMIT (URL) OF TROPONIN, DEFINED THE 99TH PERCENTILE OF cTnI DISTRIBUTION IN A REFERENCE POPULATION, HAS BEEN CONFIRMED THE DECISION THRESHOLD FOR PA DIAGNOSIS. 99TH PERCENTILE = 51.4 PG/ML NOTE: HIGH-SENSITIVITY TROPONIN ASSAY IS NOT INTENDED TO BE USED IN ISOLATION BUT SHOULD BE INTERPRETED IN CONJUNCTION WITH OTHER DIAGNOSTIC AND CLINICAL INFORMATION. Performing Lab: see note ML - [facility] LB ECG 12 lead Reviewed date:12/05/2023 12:57:52 PM Interpretation: Performing Lab: Notes/Report: Source Facility: [place] [address] [place] [address] Electrocardiograph Report Signed Patient: ZACHARY MAYNARD MR#: [id number] : 1945 Acct:[id number] Age/Sex: 78 / F ADM Date: 12/04/23 Loc: ER Attending Dr: Ordering Physician: Jaclyn Estrada Date of Service: 12/04/23 Procedure(s): ECG 12 lead Accession Number(s): [id number] cc: [facility] Test Date: 2023-12-04 Pat Name: ZACHARY MAYNARD Department: Room: - Gender: Female 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: : 1945 Requested By: VELASQUEZ LANGLEY Order Number: [id number] Reading MD: VELASQUEZ LANGLEY Measurements Intervals [place] Rate: 72 P: 270 TN: 194 QRS: 8 QRSD: 78 T: 64 QT: 394 QTc: 418 Interpretive Statements ATRIAL FIBRILLATION WITH RAPID V-RATE Electronically Signed On 12-05-2023 6:47:04 EDT by VELASQUEZ LANGLEY Dictated By: Velasquez Langley M.D. Signed By: 12/05/23 0647 DD/ 1228 TD/TT: Varnish Melter: [place] [address] Electrocardiograph Report Signed Patient: DERECK MAYNARD MR#: [id number] : 1945 Acct:[id number] Age/Sex: 78 / F ADM Date: 12/04/23 Loc: ER Attending Dr: Ordering Physician: Jaclyn Estrada Date of Service: 12/04/23 Procedure(s): ECG 12 lead Accession Number(s): [id number] cc: [facility] Test Date: 2023-12-04 Pat Name: ZACHARY ANDREA Department: 06 Room: - Gender: Female 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: : 1945 Requ ested By: VELASQUEZ LANGLEY Order Number: [id number] Reading : VELASQUEZ LANGLEY Measurements Intervals [place] Rate: 72 P: 270 TN: 194 QRS: 8 QRSD: 78 T: 64 QT: 394 QTc: 418 Interpretive Statements ATRIAL FIBRILLATION WITH RAPID V-RATE Electronically Martine d On 12-05-2023 6:47:04 EDT by VELASQUEZ LANGLEY Dictated By: Robel Langley M.D. Signed By: 12/05/23 0647 DD/ 1228 TD/TT: Varnish Melter: ECG 12 lead Reviewed date:12/05/2023 12:57:52 PM Interpretation: Performing Lab: Notes/Report: Source Facility: [place] [address] Electrocardiograph Report Signed Patient: ZACHARY MAYNARD MR#: [id number] : 1945 Acct:[id number] Age/Sex: 78 / F ADM Date: 12/04/23 Loc: ER Attending Dr: Ordering Physician: Jaclyn Estrada Date of Service: 12/04/23 Procedure(s): ECG 12 lead Accession Number(s): [id number] cc: [facility] Test Date: 2023-12-04 Pat Name: ZACHARY MAYNARD Department: Room: - Gender: Female 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: : 1945 Requested By: VELASQUEZ LANGLEY Order Number: [id number] Reading MD: VELASQUEZ LANGLEY Measurements Intervals [place] Rate: 64 P: -99456 TN: -26129 QRS: 5 QRSD: 78 T: 55 QT: 428 QTc: 437 Interpretive Statements 1210 Atrial fibrillation 9140 abnormal rhythm ECG Compared to ECG 12/02/2023 19:34:13 Sinus rhythm no longer present Sinus arrhythmia no longer present Electronically Signed On 12-05-2023 6:46:28 EDT by VELASQUEZ LANGLEY Dictated By: Velasquez Langley M.D. Signed By: 12/05/2346 DD/ 22 TD/TT: Varnish Melter: [place] [address] Electrocardiograph Report Signed Patient: DERECK MAYNARD MR#: [id number] : 1945 Acct:[id number] Age/Sex: 78 / F ADM Date: 12/04/23 Loc: ER Attending Dr: Ordering Physician: Jaclyn Estrada Date of Service: 12/04/23 Procedure(s): ECG 12 lead Accession Number(s): [id number] cc: [facility] Test Date: 2023-12-04 Pat Name: ZACHARY ANDREA Department: 06 Room: - Gender: Female 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: : 1945 Requ ested By: VELASQUEZ LANGLEY Order Number: [id number] Reading MD: VELASQUEZ LANGLEY Measurements Intervals [place] Rate: 64 P: -82921 TN: -96916 QRS: 5 QRSD: 78 T: 55 QT: 428 QTc: 437 Interpretive Statements 1210 Atrial fibrillation 9140 abnormal y [facility] ECG Compared to ECG 12/02/2023 19:34:13 Sinus rhythm no long er present Sinus arrhythmia no longer present Electronically Martine d On 12-05-2023 6:46:28 EDT by VELASQUEZ LANGLEY Dictated By: Robel Langley M.D. Signed By: 12/05/2346 DD/ 22 TD/TT: Varnish Melter: RT pulmonary function test Reviewed date:07/05/2024 08:47:56 PM Interpretation: Performing Lab: Notes/Report: Source Facility: [place] [address] [place] [address] Respiratory Report Signed Patient: ZACHARY MAYNARD MR#: [id number] : 1945 Acct:[id number] Age/Sex: 79 / F ADM Date: 06/30/24 Loc: CARD Attending Dr: Dipti Fulton M.D. Ordering Physician: Dipti Fulton M.D. Date of Service: 06/30/24 Procedure(s): RT pulmonary function test Accession Number(s): [id number] cc: [facility] Test Date: 2024-06-30 Pat Name: ZACHARY MAYNARD Department: Room: - Gender: Female 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: Alisa Bradley RRT : 1945 Requested By: Dipti Fulton Order Number: [id number] Reading MD: Usman Zavala Interpretive Statements Pulmonary function testing was completed according to ATS criteria. Findings were considered accurate and reproducible with exception of panting maneuvers. Both pre- and post-bronchodilator values utilized for spirometry. Spirometry (based on pre-bronchodilator values): -FEV1/FVC: Reduced @ 58% -FEV1: Normal @ 119% -FVC: Supra-normal @ 149% -NJO06-78%: Reduced @ 67% -There is a partial bronchodilator response in FVC which meets >200mL increase but <12% change. Lung volumes by plethysmography (based on pre-bronchodilator values): -RV: Increased @ 168% -TLC: Increased @ 148% Diffusion capacity: -DLCO: Normal @ 104% when corrected for Hb 11.3g/dL Impressions: -Spirometry consistent with a mild obstructive pattern with a near positive bronchodilator response. An elevated RV and TLC suggest air trapping and hyperinflation respectively. The diffusion capacity is normal. Overall study suggests asthma. Clinical correlation required. Electronically Signed On 07-05-2024 16:00:47 EDT by Usman Zavala Dictated By: Usman Zavala D.O. Signed By: 07/05/24 1601 07/05/24 1601 DD/ 1247 TD/TT: Varnish Melter: [place] [address] Respiratory Report Signed Patient: DERECK MAYNARD MR#: [id number] : 1945 Acct:[id number] Age/Sex: 79 / F ADM Date: 06/30/24 Loc: CARD Attending Dr: Dipti Fulton M.D. Ordering Physician: Dipti Fulton M.D. Date of Service: 06/30/24 Procedure(s): RT pulmonary function test Accession Number(s): [id number] cc: [facility] Test Date: 2024-06-30 Pat Name: ZACHARY ANDREA Department: 06 Room: - Gender: Female 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: Alisa Bradley RRT : 1945 Requ ested By: Dipti Fulton Order Number: [id number] Reading MD: Usman Zavala Interpretive Statements Pulmonary function testing was completed according to ATS criteria. Findings were considered accu rate and reproducible with exception of panting maneuvers. Both pre- and post-bronchodilator values utilized for spirometry. Spirometry (based on pre-bronchodilator values): -FEV1/FVC: Reduced @ 58% -FEV1: Normal @ 119% -FVC: Supra-normal @ 149% -UWR38-53%: Reduced @ 67% -There is a partial bronchodilator response in FVC which meets >200mL increase but <12% change. Lung volumes by plethysmography (based on pre-bronchodilator values): -RV: Increased @ 168% -TLC: Increased @ 148% Diffusion capacity: -DLCO: Normal @ 104% when corrected for Hb 11.3g/dL Impressions: -Spirometry consiste nt with a mild obstructive pattern with a near positive bronchodilator respo nse. An elevated RV and TLC suggest air trapping and hyperinflation respectively. The diffusion capacity is normal. Overall study suggests asthm a. Clinical correlation required. Electronically Martine d On 07-05-2024 16:00:47 EDT by Usman Zavala Dictated By: Yaneli Zavala D.O. Signed By: 07/05/24 1601 07/05/24 1601 DD/ 1247 TD/TT: Varnish Melter: HEMOGLOBIN Reviewed date:06/30/2024 01:21:43 PM Interpretation: Performing Lab: Notes/Report: [facility] , Hemoglobin 11.3 12.0-16.0 g/dL Performing Lab: see note ML - [facility] LB Reason For Referral Reason vestibular therapy Diagnosis 1 Vertigo (R42) Referral Organization [facility] Medicine Referring Provider First Name Enio Referring Provider Last Name Korin Referring Provider Speciality Family Med icine Referred Provider [facility], Physical Therap y Referred Provider Specialty Physical Med icine and Rehabilitation Referral Priority Routine Diagnosis 1 Arterio-venous malfo rmation (Q27.30) Referral Organization [facility] Medicine Referring Provider First Name Enio Referring Provider Last Name Korin Referring Provider Speciality [facility] amos Referred Provider Dusty Weaver Referred Provider Specialty Cardiovascul ar Disease Referral Priority Routine Medications Medication SIG (Take, Route, Frequency, Duration) Notes Start Date End Date Status Amiodarone HCl 200 MG 1 tablet Orally Once a day Active Adbry 300 MG/2ML as directed Subcutaneous 06/12/19 Active predniSONE 10 MG 1 tablet Orally once daily PRN 05/28/2024 Active Montelukast Sodium 10 MG 1 tablet Orally Once a day for 30 days 07/06/2024 Active Memantine HCl ER 28 MG 1 [...] MG 1 tablet Orally BID 03/03/2024 Active Ezetimibe 10 MG TAKE 1 TABLET BY MOLLY DAILY for 90 days Active Eliquis 5 MG 1 tablet Orally bid Active Carvedilol 6.25 MG 1 tablet with food O rally Twice a day 03/03/2024 Active rOPINIRole HCl 0.5 MG 1 tablet 1 to 3 ho urs before bedtime Orally at bedtime 12/04/2023 Active Pyridium 200 MG 1 tablet after meals Orally Three times a day for 2 days 07/21/2024 Active Doxycycline Monohydrate 100 MG 1 capsule Orally bid for 10 days 08/16/2024 Active Ketoconazole 2 % 1 application Customer Success Specialist ally bid for 14 days 08/16/2024 Active Immunizations Vaccine Route Administration Date Status Comme nts Flu, Fluad ([id number]) (66769) 65 yrs+, single-dose syringe IM Intramuscular 12/25/2022 Administered Flu, Fluad (17669) 65 yrs and older, single-dose syringe IM Intramuscular 12/08/2023 Administered Social History Tobacco Use: Social History Observation Description Date Details (start date - stop date) Former Smoker NA - 02/24/2010 Tobacco Use/Smoking Question Answer Notes Patient is a former smoker When did you stop smoking? 02/24/2010 Alcohol Screen (Audit-C) Question Answer Notes Did you have a drink containing alcohol in the p ast year? No Points 0 Interpretation Negative AUDIT-C (Standard) Question Answer Notes Did you have a drink containing alcohol in the p ast year? 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 Problem 50714900 Blepharochalasis unspecified eye, 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) Active confirmed Problem Ventricular fibrillation (58948448) Ventricular fibrillation (I49.01) Active confirmed Problem 816533100 Unspecified asthma, uncomplicated (J45.909) Active confirmed Problem 591239702 Diverticulosis o f intestine, part unspecified, without perforation or abscess without bleeding (K57.90) Active confirmed Problem 15282842 Constipation, unspecified (K59.00) Active confirmed Problem 873302524 Dyshidrosis [pompholyx] (L30.1) Active confirmed Problem Pain of right shoulder region (finding) (9871888443) Pain in right shoulder (M25.511) Active confirmed Problem 90794859 Polymyalgia rheumatica (M35.3) Active confirmed Problem 65894718 Muscle weakness (generalized) (M62.81) Active confirmed Problem 383079187 Fibromyalgia (M79.7) Active confirmed Problem 500987410 Other specified disorders of bone density and structure, unspecified site (M85.80) Active confirmed Problem 66403528 Arteriovenous malformation, site unspecified (Q27.30) Active confirmed Problem 416971141 Cramp and spasm (R25.2) Active confirmed Problem 606008385 Frequency of micturition (R35.0) Active confirmed Problem 156813256 Localized edema (R60.0) Active confirmed Problem Other injury of muscle, fascia and tendon of lower back, initial encounter (S39.092A) Active confirmed Problem 537029669 Asymptomatic menopausal state (Z78.0) Active confirmed Problem Atrial fibrillation (50189835) Atrial fibrillation (I48.91) Active confirmed Problem Osteoarthritis (821362012) Osteoarthritis (M19.90) Active confirmed Problem Asthma (789662188) Asthma (J45.909) Active conf irmed Problem Gastroesophageal reflux disease (926285494) GERD (gastroesophageal reflux disease) (K21.9) Active confirmed Problem Atrial fibrillation (disorder) (24127122) Afib (I48.91) Active confirmed Problem Arteriovenous malformation (08498414) Arterio-venous malformation (Q27.30) Active confirmed Problem Osteopenia (570719483) Osteopenia (M85.80) Active confirmed Problem Dyspnea (737303148) Dyspnea (R06.00) Active con firmed Problem 489792318 Vertigo (R42) Active confirmed Problem Eczema (82106417) Eczema (L30.9) Active confirm ed Problem Sinus tachycardia (04943314) Sinus tachycardia (R00.0) Active confirmed Problem Pain of right knee region (finding) (420073263124861) Knee pain, right (M25.561) Active confirmed Problem Edema (041361677) Edema leg (R60.0) Active conf irmed Problem Acute bronchitis (25208263) Acute bronchitis (J20.9) Active confirmed Problem Varicose veins (653705912) Varicose veins (I86.8) Active confirmed Problem Hypoglycemia (179520178) Hypoglycemia (E16.2) Active confirmed Problem Diverticulitis (26969428) Diverticulitis (K57.92) Active confirmed Problem Plantar fasciitis (596281805) Plantar fasciitis (M72.2) Active confirmed Problem Benign neoplasm of cerebral meninges (90123870) Meningioma (D32.9) Active confirmed Problem Near syncope (644563229) Near syncope (R55) Active confirmed Problem Gastroenteritis (03909827) Gastroenteritis (K52.9) Active confirmed Problem Easy bruising (000701894) Easy bruisability (R23.8) Active confirmed Problem Overweight (499797925) Over weight (E66.3) Active confirmed Problem 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 eczema (L30.1) Active confirmed Problem Nevus (0148863287) Nevus (D22.9) Active confirm ed Problem Cervical strain (453979172) Cervical strain (S16.1XXA) Active confirmed Problem Diverticular disease (730170959) Diverticular disease (K57.90) Active confirmed Problem Acute bronchiolitis (2023220) Acute bronchiolitis (J21.9) Active confirmed Problem Cramp in lower limb (097327433) Leg cramp (R25.2) Active confirmed Problem Pruritic disorders (134644165) Pruritic condition (L29.9) Active confirmed Problem Chronic obstructive pulmonary disease (56328730) Advanced COPD (J44.9) Active confirmed Problem Acute cystitis (33633092) Acute cystitis (N30.00) Active confirmed Problem Acute urinary tract infection (600765036) Acute UTI (N39.0) Active confirmed Problem Diabetic peripheral neuropathy associated with type 2 diabetes mellitus (8012222600221) Neuropathy, diabetic (E11.40) Active confirmed Problem Dementia (98952476) Advanced dem entia (F03.90) Active confirmed Problem At risk for falls (442412087) At risk for falls (Z91.81) Active confirmed Problem Benign mammary dysplasia (46132733) Benign mammary dysplasia (N60.99) Active confirmed Problem Acute heart failure (72656386) Acute heart failure (I50.9) Active confirmed Problem Essential hypertension (12815008) BP (high blood pressure) (I10) Active confirmed Problem 051646661 Pure hypercholesterolem ia, unspecified (E78.00) Active confirmed Problem Type II diabetes mellitus without complication (091363247) Diabetes (E11.9) Active confirmed Problem Diabetes mellitus (22713372) Diabetes mellitus (E11.9) Active confirmed Problem Chronic kidney disease stage 3A (disorder) (168897303) Chronic kidney disease, stage 3a (N18.31) Active confirmed Problem 620535727 Low back pain, unspecified (M54.50) Active confirmed Vital Signs Heart Rate 55 /min 05/28/2024 Temperature 98.2 degrees Fahrenheit 03/26/2024 Oximetry 96 % 05/28/2024 Blood pressure diastolic 66 mm Hg 08/16/2024 Height 63 in 08/16/2024 Blood pressure systolic 138 mm Hg 08/16/2024 Weight 165.2 lbs 08/16/2024 BMI 29.26 kg/m2 08/16/2024 Procedures Procedure Date Ordered Date Performed Result Body Sit e CARDIO Echocardiogram 11/19/2023 N/A Holter Monitor - 3 days up to 14 days 11/19/2023 N/A KORY Segmental Pressure Study of Lower Extremity 11/25/2023 N/A Echocardiogram 11/27/2023 N/A *CARDIO Stress Test - Lexiscan Nuclear 12/01/2023 N/A Encounters Encounter Location Date Provider Diagnosis [address] [address] 03/26/2024 Enio Hoy Diverticulitis K57.[address] [address] 05/28/2024 Enio Hoy Acute bronchiolitis J21.[address] [address] 07/21/2024 Enio Hoy Burning with urinati on R30.0 ; Pain in right shoulder M25.511 and Acute UTI N39.[address] [address] 11/05/2023 Enio Hoy Vertigo R42 [address] [address] 11/21/2023 Enio Hoy Acute bronchitis, unspecified organism J20.[address] [address] 08/26/2023 Enio Hoy Type 2 diabetes marion itus with diabetic neuropathy, unspecified E11.40 ; Edema leg R60.0 and Diabetes mellitus E11.[address] [address] 12/04/2023 Enio Hoy Vertigo R42 ; Acute heart failure I50.9 ; Diabetes mellitus E11.9 ; Essential (primary) hypertension I10 ; Atrial fibrillation I48.91 ; SOB (shortness of breath) R06.02 and Chest pain R07.9 [address] [place] [address] 03/03/2024 Enio Hoy Advanced COPD J44.9 ; Acute heart failure I50.9 ; Ventricular fibrillation I49.01 ; Neuropathy, diabetic E11.40 ; Type 2 diabetes mellitus with diabetic neuropathy, unspecified E11.40 ; Atrial fibrillation I48.91 and Afib I48.[address] [address] 03/08/2024 Enio Hoy Essential (primary) hypertension I10 [address] [address] 11/25/2023 Enio Hoy Asthma J45.909 ; Acu te bronchitis J20.9 and Leg pain M79.[address] [address] 12/01/2023 Enio Loy Arterio-venous malformation Q27.30 ; Atrial fibrillation I48.91 and Hypoglycemia E16.[address] [address] 11/06/2023 Enio Hoy GERD (gastroesophage al reflux disease) K21.9 and Essential (primary) hypertension I10 [address] [address] 11/12/2023 Enio Loy Pruritic condition L 29.[address] [address] 11/19/2023 Enio Hoy Sinus tachycardia R0 0.0 ; Dyspnea R06.00 and Gastroenteritis K52.[address] [address] 08/16/2024 Enio Hoy UTI (urinary tract infection) N39.0 ; Advanced dementia F03.90 ; Chronic kidney disease, stage 3a N18.31 ; Tinea corporis B35.4 and Dyspnea R06.00 [facility] [address] [place] [address] 01/28/2024 Valerio Wang [address] [address] 12/08/2023 Enio Langley GERD (gastroesophage al reflux disease) K21.9 ; Pain in right shoulder M25.511 ; Knee pain, right M25.561 ; Diabetes mellitus E11.9 ; Essential (primary) hypertension I10 ; Ventricular fibrillation I49.01 and Encounter for immunization Z23 [facility] [address] [place] [address] 08/26/2023 Enio Langley Low back pain, unspecified M54.50 and Osteoarthritis M19.90 [facility] [address] [facility] [place] [address] 11/05/2023 Enio [facility] [address] [facility] [place] [address] 11/06/2023 Enio [facility] [address] [facility] [place] [address] 11/07/2023 Enio [facility] [address] [facility] [place] [address] 11/21/2023 Enio [facility] [address] [facility] [place] [address] 11/24/2023 Enio [facility] [address] [facility] [place] [address] 11/26/2023 Enio Langley [facility] [address] [facility] [place] [address] 11/27/2023 Enio Langley Sinus tachycardia R0 0.0 [facility] [address] [facility] [place] [address] 12/01/2023 Enio [facility] [address] [facility] [place] [address] 12/02/2023 Enio [facility] [address] [facility] [place] [address] 12/02/2023 Enio [facility] [address] [facility] [place] [address] 12/02/2023 Enio [facility] [address] [facility] [place] [address] 12/02/2023 Enio lidia [facility] [address] [place] [address] 12/03/2023 Enio lidia [facility] [address] [place] [address] 12/08/2023 Enio lidia [facility] [address] [place] [address] 12/28/2023 Enio lidia [facility] [address] [place] [address] 01/14/2024 Enio lidia [facility] [address] [place] [address] 02/11/2024 Enio lidia [facility] [address] [facility] [place] [address] 02/16/2024 Enio [facility] [address] [facility] [place] [address] 02/16/2024 Enio lidia [facility] [address] [facility] [place] [address] 03/08/2024 Enio lidia [facility] [address] [facility] [place] [address] 03/08/2024 Enio [facility] [address] [facility] [place] [address] 03/15/2024 Enio lidia [facility] [address] [facility] [place] [address] 03/29/2024 Enio lidia [facility] [address] [facility] [place] [address] 03/31/2024 Enio Hoy Left arm pain M79.60 2 [facility] [address] [facility] [place] [address] 04/01/2024 Enio Hoy Left wrist pain M25. 532 [facility] [address] [facility] [place] [address] 04/02/2024 Enio lidia [facility] [address] [facility] [place] [address] 04/22/2024 Enio Langley [facility] [address] [place] [facility] [address] 05/28/2024 Enio Langley Acute bronchiolitis J21.9 [facility] [address] [facility] [place] [address] 06/11/2024 Enio Langley [facility] [address] [facility] [place] [address] 07/05/2024 Enio Langley [facility] [place] [address] [place] [address] 08/05/2024 Usman Zavala [facility] [address] [facility] [place] [address] 12/04/2023 Enio Langley Acute heart failure I50.9 ; Afib I48.91 and Dyspnea R06.00 Assessments Encounter Date Diagnosis (ICD Code) Assessment Notes Treatment Notes Treatment Clinical Notes Section Notes 08/26/2023 Type 2 diabetes mellitus with diabetic neuropathy, unspecified (ICD-10 - E11.40) discussed timing an dadjustemdnt of the meds 08/26/2023 Edema leg (ICD-10 - R60.0) worse at times 11/05/2023 Vertigo (ICD-10 - R42) 11/06/2023 GERD (gastroesophageal reflux disease) (ICD-10 - K21.9) 11/06/2023 Essential (primary) hypertension (ICD-10 - I10) 11/12/2023 Pruritic condition (ICD-10 - L29.9) 11/19/2023 Sinus tachycardia (ICD-10 - R00.0) 11/19/2023 Dyspnea (ICD-10 - R06.00) 11/21/2023 Acute bronchitis, unspecified organism (ICD-10 - J20.9) Rest and drink more liquids, especially water. You may use a humidifier or vaporizer to help keep the drainage moist. Jjqz-cvz-gbblxiy Nasal Saline may help the stuffy and runny nose. Use Ibuprofen and or Tylenol as needed for fever, chills, body aches or pain. Children 5 years old should not be given ofbu-vbk-zlqawhq cough and cold medications such as guaifenesin and dextromethorphan. If you're over age 5, you may try omcj-rvv-leumiao cold medications such as guaifenesin and dextromethorphan, or multi-symptom cold reliever such as Dayquil to help reduce the symptoms. Antibiotics have been prescribed. You should take these until completed and follow the directions. Antibiotics can sometimes cause upset stomach, and in rare cases, serious allergic reactions or serious gastrointestinal problems. If you start having severe abdominal pain, severe vomiting, or bloody diarrhea, you should be reevaluated by your physician or urgent care immediately. Follow up with your Primary Care Provider or return to clinic if symptoms do not improve within 3-5 days. If you develop severe symptoms such as shortness of breath, repeated vomiting, coughing up blood, or chest pain you should go to the emergency room or call 911 11/25/2023 Asthma (ICD-10 - J45.909) 11/25/2023 Acute bronchitis (ICD-10 - J20.9) 12/01/2023 Arterio-venous malformation (ICD-10 - Q27.30) 12/01/2023 Atrial fibrillation (ICD-10 - I48.91) 12/04/2023 Acute heart failure (ICD-10 - I50.9) 12/04/2023 Afib (ICD-10 - I48.91) 12/04/2023 Vertigo (ICD-10 - R42) 12/04/2023 Acute heart failure (ICD-10 - I50.9) placed on supplemental O2 - unable to get ecg - squad called - no chest pain during eval - 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 squad 12/08/2023 GERD (gastroesophageal reflux disease) (ICD-10 - K21.9) strabel 03/03/2024 Advanced COPD (ICD-10 - J44.9) 03/08/2024 Essential (primary) hypertension (ICD-10 - I10) fatigue an hypotension -near syncope - stiopping amidarone 03/26/2024 Diverticulitis (ICD-10 - K57.92) 05/28/2024 Acute bronchiolitis (ICD-10 - J21.9) 07/21/2024 Burning with urination (ICD-10 - R30.0) 07/21/2024 Pain in right shoulder (ICD-10 - M25.511) 08/16/2024 UTI (urinary tract infection) (ICD-10 - N39.0) chekcing urine culer and urnifro protine 08/16/2024 Advanced dementia (ICD-10 - F03.90) memory part pretty stable no argument from 08/26/2023 Low back pain, unspecified (ICD-10 - M54.50) 11/27/2023 Sinus tachycardia (ICD-10 - R00.0) 03/31/2024 Left arm pain (ICD-10 - M79.602) 04/01/2024 Left wrist pain (ICD-10 - M25.532) 05/28/2024 Acute bronchiolitis (ICD-10 - J21.9) 08/26/2023 Osteoarthritis (ICD-10 - M19.90) 08/16/2024 Chronic kidney disease, stage 3a (ICD-10 - N18.31) checing uirn protien and bun creat today 07/21/2024 Acute UTI (ICD-10 - N39.0) 03/03/2024 Acute heart failure (ICD-10 - I50.9) seein gcardiology 12/08/2023 Pain in right shoulder (ICD-10 - M25.511) reslved 12/04/2023 Diabetes mellitus (ICD-10 - E11.9) 12/04/2023 Dyspnea (ICD-10 - R06.00) 12/01/2023 Hypoglycemia (ICD-10 - E16.2) Need peer to peer - need monitor for hypoglycemia with her DM 11/25/2023 Leg pain (ICD-10 - M79.606) 11/19/2023 Gastroenteritis (ICD-10 - K52.9) 08/26/2023 Diabetes mellitus (ICD-10 - E11.9) stabel for her = not great 12/04/2023 Essential (primary) hypertension (ICD-10 - I10) 12/08/2023 Knee pain, right (ICD-10 - M25.561) stable 03/03/2024 Ventricular fibrillation (ICD-10 - I49.01) 08/16/2024 Tinea corporis (ICD-10 - B35.4) ketoconazole 03/03/2024 Neuropathy, diabetic (ICD-10 - E11.40) 12/08/2023 Diabetes mellitus (ICD-10 - E11.9) of metformin 12/04/2023 Atrial fibrillation (ICD-10 - I48.91) 12/04/2023 SOB (shortness of breath) (ICD-10 - R06.02) 12/08/2023 Essential (primary) hypertension (ICD-10 - I10) great here - 03/03/2024 Type 2 diabetes mellitus with diabetic neuropathy, unspecified (ICD-10 - E11.40) 08/16/2024 Dyspnea (ICD-10 - R06.00) 03/03/2024 Atrial fibrillation (ICD-10 - I48.91) Dr Weaver 12/08/2023 Ventricular fibrillation (ICD-10 - I49.01) opn meds - s/p cath 12/04/2023 Chest pain (ICD-10 - R07.9) 12/08/2023 Encounter for immunization (ICD-10 - Z23) 03/03/2024 Afib (ICD-10 - I48.91) Plan Of Treatment Pending Test Test Name Order Date X ray : Wrist, left 04/01/2024 CMP (COMPLETE METABOLIC PANEL) HEMOGLOBIN A1C (GLYCO) 11/19/2023 IRON, TOTAL 11/19/2023 LIPID PANEL (CHOL/TRIG/HDL/LDL) 11/19/19 24 CBC WITH DIFF 11/19/2023 VITAMIN D, 25 LEVEL (TOTAL) 11/19/2023 Echocardiogram 11/27/2023 CARDIO Echocardiogram 11/19/2023 Urinalysis Microscopic 08/16/2024 RANDOM URINE PROTEIN 08/16/2024 UA DIP NONAUTO WO MICRO (54920) - IN OFF ICE 08/16/2024 UA (URINALYSIS), COMPLETE (08201) - IN O FFICE 08/30/2022 GLUCOSE - IN OFFICE FINGERSTICK w/MONITO R 12/04/2023 STOOL OCCULT BLOOD 11/19/2023 BLEEDING TIME 10/25/2022 BNP 08/16/2024 CBC AUTO DIFF 08/16/2024 CBC AUTO DIFF 10/16/2022 CULTURE SPUTUM 11/21/2023 CULTURE URINE 08/16/2024 FERRITIN 10/16/2022 GLYCOHEMOGLOBIN A1C 10/16/2022 IRON 10/16/2022 PROF 14(COMP METB) 10/25/2022 PROF 14(COMP METB) 08/16/2024 PROTIME 10/25/2022 PTT 10/25/2022 SPUTUM GRAM STAIN 11/21/2023 THYROID PROFILE WITH TSH 10/16/2022 US VENOUS DOPPLER L ARM 03/31/2024 XR CHEST 2 V 08/16/2024 XR RIBS BIL_PA CH 4V OR GR 09/02/2022 THYROID PANEL (T4/TSH/FREE T3) THYROID PANEL (T4/TSH/FREE T3) Holter Monitor - 3 days up to 14 days KORY Segmental Pressure Study of Lower Ex tremity 11/25/2023 *CARDIO Stress Test - Lexiscan Nuclear 1 Insurance Providers Payer Name Payer Address Payer Phone Subscriber Number Group Number Insured Name Patient Relationship to Insured Coverage Start Date Coverage End Date [employer] [address] [address] [place], [place] [phone] [id number] Zachary Maynard Self - patient is the insured [employer] [address] [address] [place] [address] [phone] [id number] Zachary Maynard Self - patient is the insured Medications Administered Medication Instructions Date of Administration Dosage Notes Dexamethasone, 4mg/mL 05/06/2023 8 mg 8 m g Dexamethasone, 4mg/mL 11/05/2023 8 mg 8 m g Dexamethasone, 4mg/mL 05/28/2024 8 mg Kenalog-40 06/10/2022 80 mg 80 mg Kenalog-40 08/22/2022 120 mg 120 Kenalog-40 10/16/2022 80 mg 80 Ketorolac Tromethamine 05/06/2023 30 mg 30 Triamcinolone 40 mg/ml 07/21/2024 80 mg Medical (General) History Medical History History ICD Code Diabetes 250.00 Dizziness and giddiness R42 Gastro-esophageal reflux disease without esophagitis K21.9 Asthma 493.90 Hypercholesterolemia 272.0 Fibromyalgia M79.7 Nevus D22.9 Near syncope R55 Over weight E66.3 Neuropathy, diabetic E11.40 Other injury of muscle, fascia and tendo n of lower back, initial encounter S39.092A Leg cramp R25.2 Tinea corporis B35.4 Dyshidrotic eczema L30.1 At risk for falls Z91.81 Pain in right shoulder M25.511 Acute bronchitis J20.9 Acute cystitis N30.00 Meningioma D32.9 Plantar fasciitis M72.2 Knee pain, right M25.561 Edema leg R60.0 Arterio-venous malformation Q27.30 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
[2024-08-16 16:07] LABS: Basophils Percent Auto 0.3 % (0.2-2.0); Eosinophils Absolute Auto 0.2 10^3/uL (0.0-0.7); Eosinophils Percent Auto 3.1 % (0.9-7.0); Hematocrit 35.8 % (36.0-48.0); Hemoglobin 11.4 g/dL (12.0-16.0); Immature Granulocytes Abs Auto 0.04 10^3/uL (0.00-0.03); Immature Granulocytes Pct Auto 0.5 % (0.0-0.5); Lymphocytes Absolute Auto 1.7 10^3/uL (1.2-3.8); Lymphocytes Percent Auto 23.8 % (20.5-60.0); Mean Corpuscular HGB Conc 31.8 g/dL (29.9-35.2); Mean Corpuscular Hemoglobin 29.5 pg (26.7-34.0); Mean Corpuscular Volume 92.5 fL (81.0-99.0); Mean Platelet Volume 10.6 fL (9.5-13.5); Monocytes Absolute Auto 0.6 10^3/uL (0.3-0.8); Monocytes Percent Auto 7.8 % (1.7-12.0); Neutrophils Absolute Auto 4.7 10^3/uL (1.4-6.5); Neutrophils Percent Auto 64.5 % (43.0-75.0); Platelet Count 187 10^3/uL (150-450); Red Blood Count 3.87 10^6/uL (4.20-5.40); Red Cell Distribution Width 16.9 % (11.0-15.0); White Blood Count 7.3 10^3/uL (4.0-11.0)
[2024-08-16 18:39] LABS: Alanine Aminotransferase 21 U/L (14-59); Albumin Level 3.1 g/dL (3.4-5.0); Alkaline Phosphatase 108 U/L (46-116); Anion Gap 12.1; Aspartate Amino Transferase 14 U/L (15-37); BUN Creatinine Ratio 30.4; Bilirubin Total 0.4 mg/dL (0.2-1.0); Calcium 8.8 mg/dL (8.5-10.1); Carbon Dioxide 28.4 mmol/L (21.0-32.0); Chloride 106 mmol/L (98-107); Estimated GFR (African America 41 (>=60 mL/min/1.73m^2); Estimated GFR (Non-African Ame 34 (>=60 mL/min/1.73m^2); Globulin 3.1 g/dL; Glucose 100 mg/dL (74-106); Potassium 4.5 mmol/L (3.5-5.1); Sodium 142 mmol/L (136-145); Thyroid Stimulating Hormone 4.418 uIU/mL (0.358-3.740); Total Protein 6.2 g/dL (6.4-8.2)
== END 2024-08-16 15:40 | disposition home or self-care (01) ==
LOC: LAB 15:40
PROVIDERS: PCP Family Medicine; Visit Provider Family Medicine
DX: N39.0 Urinary tract infection, site not specified (principal); I11.0 Hypertensive heart disease with heart failure; N18.31 Chronic kidney disease, stage 3a; F03.90 Unspecified dementia, unspecified severity, without behavioral disturbance, psychotic disturbance, mood disturbance, and anxiety; B35.4 Tinea corporis; R06.00 Dyspnea, unspecified
CPT/HCPCS: 36415; 71046; 80053; 83880; 84436; 84443; 84481; 85025

== ENCOUNTER 2024-08-17 09:24 | Outpatient (REF) | payer MEDICARE, SELFPAY ==
--- OUTSIDE RECORDS SUMMARY | 2024-08-04 15:00 | XMS_ITS | Encounter Summary ---
Author Organization [facility] Address [address] [place] [address] Care Team Providers Care Electric Screw Driver Operator Name Role Phone Velasquez Langley MD Primary Care Provider [phone] Reason for Referral * Consultation (Routine) - Closed Specialty Diagnoses / Procedures Referred By Shelton royal Referred To Contact Orthopaedic Surgery Diagnoses AVN (avascular necrosis of bone) ([facility]) Kenyatta Park CNP [address] [place] [address] Phone: tel: fax: [facility] [address] [place] [address] [place] [address] Phone: tel: fax: Referral ID Status Reason Start Date Expiration Date V isits Requested Visits Authorized [id number] Closed Specialty Services Required 08/04/2024 08/04/2025 1 1 Reason for Visit * Reason Comments Follow-up Mesenteric artery st enosis, celiac artery stenosis Encounter Details Date Type Department Care Team (Late st Contact Info) Description 08/04/2024 3:00 PM EDT Follow-Up [facility] Vascular and Endovascular Surgery [address] [place] [address] Gilberto Whitten MD [address] [place] [address] Superior mesenteric artery stenosis (Primary Dx); Infrarenal abdominal aortic aneurysm (AAA) without rupture; Celiac artery stenosis; AVN (avascular necrosis of bone) ([facility]/HCC) Social History Tobacco Use Types Packs/Day Years Used Date Smoking Tobacco: Former Cigarettes Smokeless Tobacco: Never Tobacco Cessation:Counseling Given: Yes Alcohol Use Standard Drinks/Week Comments Never 0 (1 standard drink = 0.6 oz pur e alcohol) [facility] Utilities Answer Date Recorded In the past 12 months has e electric, gas, oil, or water company threatened to shut off services in your home? No 02/02/2024 Humiliation, Afraid, Rape, and Kick questionnair e Answer Date Recorded Within the last year, have y ou been afraid of your partner or ex-partner? No 02/02/2024 Within the last year, have y ou been humiliated or emotionally abused in other ways by your partner or ex-partner? No Within the last year, have y ou been kicked, hit, slapped, or otherwise physically hurt by your partner or ex-partner? No 02/02/2024 Within the last year, have y ou been raped or forced to have any kind of sexual activity by your partner or ex-partner? No 02/02/2024 Social Connection and Isolat ion Panel [NHANES] Answer Date Recorded In a typical week, how many times do you talk on the phone with family, friends, or neighbors? More than three times a week 01/27/2024 How often do you get togethe r with friends or relatives? More than three times a week 01/27/2024 How often do you attend chur or judaism services? Never 01/27/2024 Do you belong to any clubs o r organizations such as christianity groups, unions, fraternal or athletic groups, or school groups? No 01/27/2024 How often do you attend meet ings of the clubs or organizations you belong to? Never 01/27/2024 Are you , , di vorced, , never , or living with a partner? 01/27/2024 AUDIT-C Answer Date Recorded Q1: How often do you have a drink containing alcohol? Never 01/27/2024 Q2: How many drinks containi ng alcohol do you have on a typical day when you are drinking? Patient does not drink Q3: How often do you have si x or more drinks on one occasion? Never 01/27/2024 Overall Financial Resource Strain (CARDIA) Answe r Date Recorded How hard is it for you to pa y for the very basics like food, housing, medical care, and heating? Not hard at all 02/02/2024 PHQ-2 Answer Date Recorded Patient Health Questionnaire-2 Score 0 05/11/2024 [facility] of Occupat ional Health - Occupational Stress Questionnaire Answer Date Recorded Do you feel stress - tense, restless, nervous, or anxious, or unable to sleep at night because your mind is troubled all the time - these days? To some extent 01/27/2024 Transportation Answer Date Recorded In the past 12 months, has l ack of transportation kept you from medical appointments or from getting medications? No 10/2023 In the past 12 months, has l ack of transportation kept you from meetings, work, or from getting things needed for daily living? No 02/02/2024 Housing Stability Vital Sign Answer Sd e Recorded In the last 12 months, was t here a time when you were not able to pay the mortgage or rent on time? No 02/02/2024 In the past 12 months, how m any times have you moved where you were living? 1 02/02/2024 At any time in the past 12 m [facility], were you homeless or living in a mcc (including now)? No 02/02/2024 Hunger Vital Sign Answer Date Recorded Within the past 12 months, y ou worried that your food would run out before you got the money to buy more. Never true 02/02/20 24 Within the past 12 months, t he food you bought just didn't last and you didn't have money to get more. Never true 02/02/2024 Comments No Sex and Gender Information Value Date Recorded Sex Assigned at Female 01/27/2024 11:08 AM EST Legal Sex Female 11:01 PM EDT Gender Identity Female 01/27/2024 11:08 AM EST Sexual Orientation Heterosexual or Straight 04/2023 11:08 AM EST documented as of this encounter Last Filed Vital Signs Vital Sign Reading Time Taken Comments Blood Pressure 174/76 08/04/2024 3:05 PM EDT Pulse 52 08/04/2024 3:05 PM EDT Temperature - - Respiratory Rate 16 08/04/2024 3:05 PM EDT Oxygen Saturation 100% 08/04/2024 3:05 PM EDT Inhaled Oxygen Concentration - - Weight 73.9 kg (163 lb) 08/04/2024 3:05 PM EDT Height 160 cm (5' 3 ) 08/04/2024 3:05 PM EDT Body Mass Index 28.87 08/04/2024 3:05 PM EDT documented in this encounter Progress Notes * Иван Leroy MA - 08/04/2024 3:00 PM EDT Subjective Shayy Johnson is a 79 y.o. female. Chief Complaint: Follow-up (Mesenteric artery stenosis, celiac artery stenosis) Patient c/o of abd pain Review of Systems Constitutional: Positive for malaise/fatigue. Negative for chills and fever. HENT: Negative for congestion, ear pain and sore throat. Eyes: Negative for blurred vision, double vision and visual disturbance. Cardiovascular: Positive for leg swelling. Negative for chest pain, near-syncope and palpitations. Respiratory: Positive for shortness of breath. Endocrine: Negative for cold intolerance and heat intolerance. Hematologic/Lymphatic: Bruises/bleeds easily. Musculoskeletal: Positive for joint pain, joint swelling and neck pain. Negative for arthritis and back pain. Gastrointestinal: Positive for abdominal pain. Negative for bloating, constipation, diarrhea, nausea and vomiting. Genitourinary: Negative for bladder incontinence. Neurological: Positive for dizziness. Negative for light-headedness. Objective Physical Exam Lab Review: not applicable Assessment/Plan There were no encounter diagnoses. * Kenyatta Park CNP - 08/04/2024 3:00 PM EDT Images from the original note were not included. DEPARTMENT OF VASCULAR SURGERY HPI Shayy Johnson is a 79 y.o. female who presents today for Follow-up (Mesenteric artery stenosis,celiac artery stenosis) Patient is here today to review her CTA abdomen and pelvis with IV contrast for concern of mesenteric ischemia/stenosis. Recall she has a history of symptomatic 5.8cm AAA status post EVAR on 01/28/2024 as well as symptomatic mesenteric stenosis s/p mesenteric angio with SMA stenting on 02/04. She denies any nausea, vomiting, food fear, or post prandial pain. No weight loss or diarrhea. She does endorse bloating after eating. She states that she continues to have left flank pain which started after she had the SMA stenting performed. She is on Eliquis 5mg BID and denies any hematochezia, hemoptysis, epistaxis, melena, or hematuria. Her repeat mesenteric duplex previously demonstrated possible restenosis of both SMA and celiac arteries. Her CTA abdomen and pelvis with IV contrast demonstrates aortobiiliac endograft with similar or slightly decreased size of the aortic aneurysm sac with no evidence of endoleak; Suspected SMA (moderate to severe) and celiac ( moderate) in-stent restenosis;femoral head AVN ( this is not a new finding seen on previous CTA 02/03/2024) No other complaints or concerns Review of Systems Constitutional: Positive for malaise/fatigue. Negative for chills and fever. HENT: Negative for congestion, ear pain and sore throat. Eyes: Negative for blurred vision, double vision and visual disturbance. Cardiovascular: Positive for leg swelling. Negative for chest pain, near-syncope and palpitations. Respiratory: Positive for shortness of breath. Endocrine: Negative for cold intolerance and heat intolerance. Hematologic/Lymphatic: Bruises/bleeds easily. Musculoskeletal: Positive for joint pain, joint swelling and neck pain. Negative for arthritis and back pain. Gastrointestinal: Positive for abdominal pain. Negative for bloating, constipation, diarrhea, nausea and vomiting. Genitourinary: Negative for bladder incontinence. Neurological: Positive for dizziness. Negative for light-headedness. Past Medical History: Medical History[1] Objective Visit Vitals BP 174/76 (BP Location: Left arm, Patient Position: Sitting, BP Cuff Size: Adult) Pulse 52 Resp 16 Ht 1.6 m (5' 3 ) Wt 73.9 kg (163 lb) SpO2 100% BMI 28.87 kg/m?? OB Status Postmenopausal Smoking Status Former BSA 1.81 m?? Physical Exam Vitals and nursing note reviewed. Constitutional: Appearance: Normal appearance. She is obese. HENT: Head: Normocephalic and atraumatic. Eyes: Pupils: Pupils are equal, round, and reactive to light. Cardiovascular: Rate and Rhythm: Normal rate and regular rhythm. Pulses: Carotid pulses are 2+ on the right side and 2+ on the left side. Radial pulses are 2+ on the right side and 2+ on the left side. Dorsalis pedis pulses are 2+ on the right side and 2+ on the left side. Heart sounds: Normal heart sounds. Pulmonary: Effort: Pulmonary effort is normal. No respiratory distress. Abdominal: General: Bowel sounds are normal. There is no distension or abdominal bruit. There are no signs of injury. Palpations: Abdomen is soft. Tenderness: There is left CVA tenderness. There is no right CVA tenderness, guarding or rebound. Negative signs include Hdez's sign, Rovsing's sign, McBurney's sign, psoas sign and obturator sign. Musculoskeletal: General: Normal range of motion. Cervical back: Normal range of motion. Right lower leg: No edema. Left lower leg: No edema. Skin: General: Skin is warm and dry. Capillary Refill: Capillary refill takes less than 2 seconds. Neurological: General: No focal deficit present. Mental Status: She is alert and oriented to person, place, and time. Mental status is at baseline. Psychiatric: Mood and Affect: Mood normal. Behavior: Behavior normal. Thought Content: Thought content normal. Judgment: Judgment normal. Imaging Reviewed: CTA abdomen and pelvis 07/22/2024 Study Result Narrative & Impression CLINICAL INFORMATION: Mesenteric ischemia/stenosis. COMPARISON: 02/03/2024 TECHNIQUE: Multidetector CT Angiogram performed with IV contrast through the abdomen and pelvis including 3-D Maximum intensity projection reconstructions constructed under concurrent physician supervision on a independent workstation. 3 D images obtained to improve visualization of vascular detail. Automated exposure control was utilized. FINDINGS: VASCULAR FINDINGS: Aorta: Postoperative changes of aortobiiliac stent graft. Excluded aneurysm sac measures up to 5.8 cm, previously 6.1 cm. Resolution of previously seen gas. No evidence for endoleak. Celiac artery: Suspect at least moderate in-stent restenosis proximally. Otherwise patent. Superior mesenteric artery: Suspect at least moderate in-stent restenosis, otherwise distally patent. Renal arteries: Mild stenosis proximally of the renal arteries bilaterally patent. Inferior mesenteric artery: Occluded proximally. Right iliac: Patent stent. Moderate stenosis at the proximal anterior division internal iliac artery. Patent external iliac artery. Left iliac: Patent stent. Moderate multifocal stenosis of the internal iliac artery. Mild stenosis of the distal external iliac artery and common femoral artery Venous findings: Patent portal vein. Patent cava. Patent SMV. NONVASCULAR FINDINGS: LOWER CHEST: No pericardial or pleural effusion. Small hiatal hernia. LIVER AND BILIARY: Within normal limits. No suspicious lesion. PANCREAS: No acute abnormality. SPLEEN: No acute abnormality. ADRENALS: No acute abnormality. KIDNEYS, URETERS, AND BLADDER: Mild cortical thinning, likely related to chronic renal vascular disease. No suspicious lesion or hydronephrosis. Normal bladder. GI TRACT AND PERITONEUM: Diverticulosis without diverticulitis. No obstruction. No free fluid or free air. LYMPH NODES: Within normal limits. REPRODUCTIVE ORGANS: No acute abnormality. MUSCULOSKELETAL: Bilateral femoral head AVN. No acute osseous abnormality. IMPRESSION: 1.Aortobiiliac endograft. Similar or slightly decreased size of the excluded aortic aneurysm. No evidence for endoleak. 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 Correlate with recent Doppler.. 3.Femoral head AVN. All CT scans at this facility use dose modulation, iterative reconstruction, and/or weight based dosing when appropriate to reduce radiation dose to as low as reasonably achievable. Electronically signed: KEENAN CHOUDHURY. 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 Will send referral to orthopedics since she does not follow with them for this. She previously saw Dr Rivas for multiple trigger finger release. She does have a history of oteoarthritis -Will discuss CTA results with Dr Whitten and call patient tomorrow to determine need for any intervention or if we will continue to monitor closely Kenyatta Park, [place], [facility] Division of Vascular/Endovascular and Wound Surgery [1] Past Medical History: Diagnosis Date Abnormal ECG Arrhythmia Atrial fibrillation (CMS/HCC) COPD (chronic obstructive pulmonary disease) (CMS/HCC) Coronary artery disease Diabetes mellitus (CMS/HCC) Hyperlipidemia Hypertension documented in this encounter Plan of Treatment Scheduled Referrals Name Type Priority Associated Diagnoses Order Schedule Ambulatory referral to Orthopaedic Surgery Outpatient Referral Routine AVN (avascular necrosis of bone) ([facility]) Expected: 08/04/2024 (Approximate), Expires: 02/03/2025 documented as of this encounter Visit Diagnoses Diagnosis Superior mesenteric artery stenosis- Primary Stricture of artery Infrarenal abdominal aortic aneurysm (AAA) without rupture Celiac artery stenosis Stricture of artery AVN (avascular necrosis of bone) ([facility]) Aseptic necrosis of bone, site unspecified documented in this encounter Care Teams Electric Screw Driver Operator Relationship Specialty Start Date End Date Velasquez Langley [facility] [address] [facility] [place] [phone] PCP - General 12/02/23 documented as of this encounter
--- OUTSIDE RECORDS SUMMARY | 2024-08-17 09:27 | XMS_ITS | Encounter Summary ---
Author Organization [facility] Address [address] [place] [address] Care Team Providers Care Blocker Polishing Name Role Phone Velasquez Langley MD Primary Care Provider [phone] Reason for Visit * Reason Onset Date Comments scheduling surgery 08/06/2024 Encounter Details Date Type Department Care Team (Late st Contact Info) Description 08/06/2024 Telephone [facility] Vascular and Endovascular Surgery [address] [place] [address] Deepa Wilcox ONESIMO scheduling surgery Social History Tobacco Use Types Packs/Day Years Used Date Smoking Tobacco: Former Cigarettes Smokeless Tobacco: Never Alcohol Use Standard Drinks/Week Comments Never 0 (1 standard drink = 0.6 oz pur e alcohol) [facility] Utilities Answer Date Recorded In the past 12 months has [facility] [employer], gas, oil, or water [employer] threatened to shut off services in your [...] often do you attend chur ch or jehovah's witness services? Never 01/27/2024 Do you belong to any clubs o r organizations such as jain groups, unions, fraternal or athletic groups, or [...] Recorded Patient Health Questionnaire-2 Score 0 05/11/2024 [facility] - Occupational Stress [...] any time in the past 12 m [facility], were you homeless or living in [...] on filedocumented in this encounter Care Teams Blocker Polishing Relationship Specialty Start Date End Date Velasquez Langley MD [address] [facility] [place] [address] PCP - General 12/02/23 documented as of this encounter
--- OUTSIDE RECORDS SUMMARY | 2024-08-17 09:27 | XMS_ITS | Encounter Summary ---
Author Organization [facility] Address [address] [place] [address] Care Team Providers Care Reading Aide Name Role Phone Velasquez Langley MD Primary Care Provider [phone] Encounter Details Date Type Department Care Team (Late Contact Info) Description 08/23/2022 Abstract [facility] [address] [facility] [address] [place] [address] Althea Red MD [address] [facility] [address] [place] [address] Social History Tobacco Use Types [...] Office Visit [facility] [address] [facility] [address] [place] [address] Althea Red MD [address] [facility] [address] [place] [address] documented as of this encounter Visit Diagnoses Not on filedocumented in this encounter Care Teams Reading Aide Relationship Specialty Start Date End Date Velasquez Langley MD PCP - General Family Medicine 01/06/23 documented as of this encounter
--- OUTSIDE RECORDS SUMMARY | 2024-08-17 09:27 | XMS_ITS | Clinical Summary ---
Author Organization [facility] tem Address [id number] [address] [id number] Care Team Providers Care Construction Controller Name Role Phone Velasquez Langley MD Primary Care Provider [phone] Allergies Active Allergy Reactions Criticality Noted Date Comments Moxifloxacin 10/15/2018 Ciprofloxacin 10/15/2018 Meperidine 10/15/2018 Nalbuphine 10/15/2018 Promethazine 10/15/2018 Lnjsbyh-Rvu-Ins Reductase Inhibitors 10/15/2018 Sulfa (Sulfonamide Antibiotics) 09/25 [...] on file Insurance [employer] MEDICARE Care Teams Construction Controller Relationship Specialty Start Date End Date Velasquez Langley MD PCP - General Family Medicine 10/15/18
--- OUTSIDE RECORDS SUMMARY | 2024-08-17 09:27 | XMS_ITS | Clinical Summary ---
Author Organization [facility] Address [address] [place] [address] Care Team Providers Care Estimator Project Manager Name Role Phone Velasquez Langley MD Primary Care Provider [phone] Allergies Active Allergy Reactions Criticality Noted Date [...] 1:26 AM 06/28/2017 8:50 AM Care Teams Estimator Project Manager Relationship Specialty Start Date End Date Velasquez Langley MD [address] [place] [address] PCP - General Family Medicine 06/27/17
--- OUTSIDE RECORDS SUMMARY | 2024-08-17 09:27 | XMS_ITS | Clinical Summary ---
Author Organization [facility] Address [address] [place] [address] Care Team Providers Care Equipment Detailer Name Role Phone Velasquez Langley MD Primary [...] Department Care Team Description 06/11/2024 Telephone [facility] D[facility]M [address] [place] [address] Lizette Bee LPN 05/31/2024 Abstract [facility] D[facility]M [address] [place] [address] Allyssa Guallpa LPN 05/26/2024 Telephone [facility] D[facility]M [address] [place] [address] Allyssa Guallpa LPN Prior Authorization 05/20/2024 4:00 PM EDT Office Visit [facility] D[facility] [address] [place] [address] Althea Red MD Other atopic dermatitis (Primary Dx); High risk medication use 05/20/2024 Bamboo flowsheet [facility] D[facility]M [address] [place] [address] Althea Red MD 05/20/2024 Travel from [...] 08/24/2024 4:00 PM EDT Office Visit [facility] D[facility]M [address] [place] [address] Althea Red MD [address] [place] [address] Health Maintenance Due Date Last Done Comments Pneumococcal Vaccine: 65+ Years (2 of 2 - PCV) 021 11/19/2019 Influenza Vaccine (Season Ended) 2024 11/29/19 20 Insurance [employer] MEDICARE UNITED [employer] MEDICARE Care Teams Equipment Detailer Relationship Specialty Start Date End Date Velasquez Langley MD PCP - General Family Medicine 01/06/23
--- OUTSIDE RECORDS SUMMARY | 2024-08-17 09:27 | XMS_ITS | Referral Summary ---
Author Organization [facility] Address [address] [place] [address] Care Team Providers Care Propulsion Engineer Name Role Phone Velasquez Langley MD Primary Care Provider [phone] Encounters Date Type Department Care Team Description 08/06/2024 Telephone [facility] Vascular and Endovascular Surgery [address] [place] [address] Deepa Wilcox MA scheduling surgery 08/04/2024 3:00 PM EDT Follow-Up [facility] Surgery [address] [place] [address] Gilberto Whitten MD Superior mesenteric artery stenosis (Primary Dx); Infrarenal abdominal aortic aneurysm (AAA) without rupture; Celiac artery stenosis; AVN (avascular necrosis of bone) ([facility]/HCC) 08/02/2024 Orders Only [facility] [address] [place] [address] Renetta Lainez MA 07/29/2024 Telephone [facility] [address] [place] [address] Kristie Chow MA 07/27/2024 Orders Only [place] [address] [place] [address] Ayad Bullard MD 07/26/2024 Orders Only [facility] [address] [place] [address] Renetta Lainez MA Mixed hyperlipidemia 07/22/2024 1:35 PM EDT Lab [facility] Outpatient Draw Station [address] [place] [address] Superior mesenteric artery stenosis; Infrarenal abdominal aortic aneurysm (AAA) without rupture; Mixed hyperlipidemia 07/22/2024 1:01 PM EDT - 07/22/2024 11:59 PM EDT Hospital Encounter [facility] CT Imaging [address] [place] [address] Superior mesenteric artery stenosis; Infrarenal abdominal aortic aneurysm (AAA) without rupture Discharge Disposition: Home or Self Care () 06/18/2024 11:00 AM EDT Office Visit [place] [address] [place] [address] Bhavesh Fulton MD Chronic diastolic heart failure (CMS/HCC) (Primary Dx); Dyspnea on exertion; Coronary artery disease involving [place] coronary artery of [place] heart without angina pectoris; Paroxysmal atrial fibrillation (CMS/HCC); On amiodarone therapy; NSVT (nonsustained ventricular tachycardia) (CMS/HCC); Abdominal aortic aneurysm (AAA) without rupture, unspecified part; Mesenteric artery stenosis; Benign hypertensive heart disease without congestive heart failure; Mixed hyperlipidemia; Hypercholesterolemia; Type 2 diabetes mellitus without complication, without long-term current use of insulin (CMS/HCC) 06/07/2024 Telephone [facility] [address] [place] [address] Rosie Weir MA 06/07/2024 1:30 PM EDT Follow-Up [facility] Vascular and Endovascular Surgery [address] [place] [address] Celena Chow PA-C Superior mesenteric artery stenosis (Primary Dx); Infrarenal abdominal aortic aneurysm (AAA) without rupture; Celiac artery stenosis 06/06/2024 12:05 AM EDT - 06/06/2024 11:59 PM EDT Hospital Encounter [facility] Radiology External Films [address] [place] [address] Discharge Disposition: Home or Self Care () 06/06/2024 - 06/06/2024 12:04 AM EDT Hospital Encounter [facility] Radiology External Films [address] [place] [address] Discharge Disposition: Home or Self Care (01) 05/31/2024 11:25 AM EDT - 05/31/2024 11:59 PM EDT Hospital Encounter [facility] Vascular Ultrasound Imaging [address] [place] [address] Superior mesenteric artery stenosis Discharge Disposition: Home [...] failure 12/31/2023 Coronary artery disease invo lving [place] coronary artery of [place] heart without angina pectoris 12/31/2023 Osteoarthritis 12/05/2023 [...] drink = 0.6 oz pur e alcohol) [facility] Utilities Answer Date Recorded In the past 12 months has e electric, gas, oil, or water [employer] threatened to shut off services in your [...] often do you attend chur ch or yazidism services? Never 01/27/2024 Do you belong to any clubs o r organizations such as restorationism groups, unions, fraternal or athletic groups, or [...] Recorded Patient Health Questionnaire-2 Score 0 05/11/2024 [facility] [place] of Occupat ional Health - Occupational Stress [...] on file Medical Devices Implanted Type Area Acetaldehyde Converter Operator Device Identifier Shelf Expiration Date Model / Serial / Lot Vera-Fx Water Quality Technician And Endoanchor Cassette Implanted:Qty : 1 on 01/28/2024 by Sandeep Wang MD at [facility] [place] N/A: Aorta Medtronic [id number] 11/17/2025 -85 / / [id number] Description:7 IMPLANTED, 10 COME IN A BOX Endurant Stent Graft System Implanted:Qty : 1 on 01/28/2024 by Sandeep Wang MD at [facility] [place] Graft N/A: Aorta Medtronic [id number] 10/15/2025 [id number] 103E / [id number] / Endurant Ii Stent Graft Implanted:Qty : 1 on 01/28/2024 by Sandeep Wang MD at [facility] [place] Graft N/A: Arterial Medtronic [id number] 07/30/2025 [id number] 146E / [id number] / Description:LEFT COMMON FRANSISCA C Endurant Ii Stent Graft Implanted:Qty : 1 on 01/28/2024 by Sandeep Wang MD at [facility] [place] Graft N/A: Arterial Medtronic [id number] 11/17/2025 [id number] 146E / [id number] / Description:RIGHT COMMON CLEMENT AC Stent,Express 2,Bili,6x17x1 35 - [id number] Implanted:Qty : 1 on 02/05/2024 by Gilberto Whitten MD at [facility] [place] Stent N/A: Abdomen [employer] [id number] 01/27/2026 [id number] / / [id number] Stent,Expr Bili,Sd,6.0x1 8x150 - [id number] Implanted:Qty : 1 on 02/05/2024 by Gilberto Whitten MD at [facility] [place] Stent N/A: Abdomen [employer]SCIM ED [id number] 06/05/2026 [id number] / / [id number] Procedures Procedure Name Priority Date/Time Associated Diagnosis [...] included. Blood Venous blood specimen / Unknown [facility] Provider MD LAB BLOOD ORDERABLES Margarita l [...] - 1.20 mg/dL 07/22/2024 2:37 PM EDT [facility] ([place]) eGFR 47.9(L) >60.0 mL/min/1. 73m*2 07/22/2024 2:37 PM EDT [facility] ([place]) Comment:[facility] s estimated glomerular filtration rate (eGFR) will [...] Chow PA-C LAB BLOOD ORDERABLES Final Result [facility] ([place]) [address] [place] [address] * US transfer of outside films (06/06/2024 [...] - 6.0 % 12/05/2023 10:16 AM EDT [facility] ([facility]) Estimated Average Glucose 105 mg/dL 12/05/2023 10:16 AM EDT [facility] ([facility]) Blood Venous blood specimen / Unknown Arterial Line / Unknown 12/05/2023 3:35 AM EDT 12/05/2023 4:04 AM EDT Daniela Van MD LAB BLOOD ORDERABLES Final Resul t [facility] ([facility]) [address] [place] [address] from Last 3 Months or Most Recently Relevant to Health Maintenance Insurance [employer] MEDICARE Member Subscriber Plan / Payer (Ef fective 2022-Present) Name:Shayy Johnson Relation to Subscriber:Self Name:Shayy Johnson Payer ID:[id number] (NAIC) Type:Not on file Address: [place] [id number] Advance Directives * Full Code (Latest Code Status on File) Date Activated Date Inactivated Comments 02/02/2024 6:08 AM 02/12/2024 1:43 PM * Full Code Date Activated Date Inactivated Comments 01/27/2024 5:00 PM 01/31/2024 2:34 PM * Full Code Date Activated Date Inactivated Comments 12/05/2023 2:56 AM 12/06/2023 2:19 PM Care Teams Propulsion Engineer Relationship Specialty Start Date End Date Velasquez Langley MD [address] [facility] [place] [address] PCP - General 12/02/23
--- OUTSIDE RECORDS SUMMARY | 2024-08-17 09:27 | XMS_ITS | Encounter Summary ---
Author Organization [facility] Address [address] [place] [address] Care Team Providers Care Safety Equipment Tester Name Role Phone Velasquez Langley MD Primary Care Provider [phone] Encounter Details Date Type Department Care Team (Late st Contact Info) Description 08/02/2024 Orders Only [facility] Heart at [facility] [address] [place] [address] Renetta Lainez MA Social History Tobacco Use Types Packs/Day Years Used Date Smoking Tobacco: Former Cigarettes Smokeless Tobacco: Never Alcohol Use Standard Drinks/Week Comments Never 0 (1 standard drink = 0.6 oz pur e alcohol) [facility] Utilities Answer Date Recorded In the past [...] often do you attend chur ch or scientologist services? Never 01/27/2024 Do you belong to any clubs o r organizations such as methodist groups, unions, fraternal or athletic groups, or [...] Recorded Patient Health Questionnaire-2 Score 0 05/11/2024 [facility] of Occupat ional Health - Occupational Stress [...] any time in the past 12 m [facility], were you homeless or living in [...] on filedocumented in this encounter Care Teams Safety Equipment Tester Relationship Specialty Start Date End Date Velasquez Langley MD [address] [facility] [place] [address] PCP - General 12/02/23 documented as of this encounter
--- OUTSIDE RECORDS SUMMARY | 2024-08-17 09:27 | XMS_ITS | Clinical Summary ---
Author Organization [facility] Address [address] [address] Care Team Providers Care Sem Manager Name Role Phone Velasquez Langley MD Primary Care Provider [phone] Allergies Active Allergy Reactions Criticality Noted Date [...] failure 12/31/2023 Coronary artery disease invo lving [place] coronary artery of [place] heart without angina pectoris 12/31/2023 Osteoarthritis 12/05/2023 [...] Type Department Care Team Description 08/06/2024 Telephone [facility] Vascular [place] Vascular and Endovascular Surgery [address] [place] [address] Deepa Wilcox MA scheduling surgery 08/04/2024 3:00 PM EDT Follow-Up [facility] Vascular and Endovascular Surgery [address] [place] [address] Gilberto Whitten MD Superior mesenteric artery stenosis (Primary Dx); Infrarenal abdominal aortic aneurysm (AAA) without rupture; Celiac artery stenosis; AVN (avascular necrosis of bone) ([facility]) 08/02/2024 Orders Only [facility] [address] [place] [address] Renetta Lainez MA 07/29/2024 Telephone [facility] [address] [place] [address] Kristie Chow MA 07/27/2024 Orders Only [facility] [address] [place] [address] Ayad Bullard MD 07/26/2024 Orders Only [facility] [address] [place] [address] Renetta Lainez MA Mixed hyperlipidemia 07/22/2024 1:35 PM EDT Lab [facility] Out[facility] Draw Station [address] [place] [address] Superior mesenteric artery stenosis; Infrarenal abdominal aortic aneurysm (AAA) without rupture; Mixed hyperlipidemia 07/22/2024 1:01 PM EDT - 07/22/2024 11:59 PM EDT Hospital En[facility] [address] [place] [address] Superior mesenteric artery stenosis; Infrarenal abdominal aortic aneurysm (AAA) without rupture Discharge Disposition: Home or Self Care () 06/18/2024 11:00 AM EDT Office Visit [facility] [address] [place] [address] Bhavesh Fulton MD Chronic diastolic heart failure (CMS/HCC) (Primary Dx); Dyspnea on exertion; Coronary artery disease involving [place] coronary artery of [place] heart without angina pectoris; Paroxysmal atrial fibrillation (CMS/HCC); On amiodarone therapy; NSVT (nonsustained ventricular tachycardia) (CMS/HCC); Abdominal aortic aneurysm (AAA) without rupture, unspecified part; Mesenteric artery stenosis; Benign hypertensive heart disease without congestive heart failure; Mixed hyperlipidemia; Hypercholesterolemia; Type 2 diabetes mellitus without complication, without long-term current use of insulin (CMS/HCC) 06/07/2024 1:30 PM EDT Follow-Up [facility] Vascular and Endovascular Surgery [address] [place] [address] Celena Chow PA-C Superior mesenteric artery stenosis (Primary Dx); Infrarenal abdominal aortic aneurysm (AAA) without rupture; Celiac artery stenosis 06/07/2024 Telephone [facility] Cardiology Clinic [address] [place] [address] Rosie Weir MA 06/06/2024 12:05 AM EDT - 06/06/2024 11:59 PM EDT Hospital En[facility] Rad[facility] External Films [address] [place] [address] Discharge Disposition: Home or Self Care (01) 06/06/2024 - 06/06/2024 12:04 AM EDT Hospital En[facility] External Films [address] [place] [address] Discharge Disposition: Home or Self Care (01) 05/31/2024 11:25 AM EDT - 05/31/2024 11:59 PM EDT Hospital Encounter [facility] Vascular Ultrasound Imaging [address] [place] [address] Superior mesenteric artery stenosis Discharge Disposition: Home or Self Care () from Last 3 Months Social History Tobacco Use Types Packs/Day Years Used Date Smoking Tobacco: Former Cigarettes Smokeless Tobacco: Never Tobacco Cessation:Counseling Given: Yes Alcohol Use Standard Drinks/Week Comments Never 0 (1 standard drink = 0.6 oz pur e alcohol) [facility] Utilities Answer Date Recorded In the past 12 months has [employer], gas, oil, or water [employer] threatened to shut off services in your [...] often do you attend chur ch or mandaen services? Never 01/27/2024 Do you belong to any clubs o r organizations such as jehovah's witness groups, unions, fraternal or athletic groups, or [...] Recorded Patient Health Questionnaire-2 Score 0 05/11/2024 [facility] [place] of Occupat ional Health - Occupational Stress [...] any time in the past 12 m [facility], were you homeless or living in a intermediate (including now)? No 02/02/2024 Hunger Vital Sign [...] this topic Medical Devices Implanted Type Area Tripoler Device Identifier Shelf Expiration Date Model / Serial / Lot Vera-Fx Cytogenetics Laboratory Manager And Endoanchor Cassette Implanted:Qty : 1 on 01/28/2024 by Sandeep Wang MD at [facility] [place] N/A: Aorta Medtronic [id number] 11/17/2025 -85 / / [id number] Description:7 IMPLANTED, 10 COME IN A BOX Endurant Stent Graft System Implanted:Qty : 1 on 01/28/2024 by Sandeep Wang MD at [facility] Graft N/A: Aorta Medtronic [id number] 10/15/2025 [id number] 103E / [id number] / Endurant Ii Stent Graft Implanted:Qty : 1 on 01/28/2024 by Sandeep Wang MD at [facility] Graft N/A: Arterial Medtronic [id number] 07/30/2025 [id number] 146E / [id number] / Description:LEFT COMMON FRANSISCA C Endurant Ii Stent Graft Implanted:Qty : 1 on 01/28/2024 by Sandeep Wang MD at [facility] Graft N/A: Arterial Medtronic [id number] 11/17/2025 [id number] 146E / [id number] / Description:RIGHT COMMON CLEMENT AC Stent,Express 2,Bili,6x17x1 35 - [id number] Implanted:Qty : 1 on 02/05/2024 by Gilberto Whitten MD at [facility] Stent N/A: Abdomen [employer] [id number] 01/27/2026 [id number] / / [id number] Stent,Expr Bili,Sd,6.0x1 8x150 - [id number] Implanted:Qty : 1 on 02/05/2024 by Gilberto Whitten MD at [facility] Stent N/A: Abdomen [employer]SCIM ED [id number] 06/05/2026 [id number] / / [id number] Procedures Procedure Name Priority Date/Time Associated Diagnosis [...] OUTSIDE FILMS Routine 06/06/2024 12:00 AM EDT [facility] US MESENTERIC ARTERY DUPLEX COMPLETE Routine 05/31/2024 [...] included. Blood Venous blood specimen / Unknown [facility] Provider MD LAB BLOOD ORDERABLES Margarita l Result * Lipid panel (07/27/2024 11:31 AM EDT) Only the most recent of2 resultswithin the time period is included. Blood Venous blood specimen / Unknown [facility] Provider MD LAB BLOOD ORDERABLES [...] - 1.20 mg/dL 07/22/2024 2:37 PM EDT [facility] ([place]) eGFR 47.9(L) >60.0 mL/min/1. 73m*2 07/22/2024 2:37 PM EDT [facility] ([place]) Comment:[facility] s estimated glomerular filtration rate (eGFR) [...] BLOOD ORDERABLES Final Result Performing Organization Address City/[facility] Co de Phone Number [facility] ([facility]) [address] [place] [address] * US transfer of outside films (06/06/2024 12:05 AM EDT) Narrative IMAGING - 06/06/2024 1:40 PM EDT This order has been auto-finalized and does not contain a result. Gilberto Whitten MD IMG US PROCEDURES Final Result Performing Organization Address [facility] Co de Phone Number IMAGING * CT transfer of outside films (06/06/2024 12:00 AM EDT) Narrative IMAGING - 06/06/2024 1:39 PM EDT This order has been auto-finalized and does not contain a result. us Gilberto Whitten MD IMG CT PROCEDURES Final Result Performing Organization Address [facility] de Phone Number IMAGING * USV Arterial [...] - 6.0 % 12/05/2023 10:16 AM EDT [facility] ([place]) Estimated Average Glucose 105 mg/dL 12/05/2023 10:16 AM EDT [facility] ([facility]) Blood Venous blood specimen / Unknown Arterial Line / Unknown 12/05/2023 3:35 AM EDT 12/05/2023 4:04 AM EDT us Daniela Van MD LAB BLOOD ORDERABLES Final Resul t [facility] ([place]) [address] [place], [place] [id number] from Last 3 Months or Most Recently Relevant to Health Maintenance Insurance [employer] MEDICARE Advance Directives * Full Code (Latest Code Status on File) Date Activated Date Inactivated Comments 02/02/2024 6:08 AM 02/12/2024 1:43 PM * Full Code Date Activated Date Inactivated Comments 01/27/2024 5:00 PM 01/31/2024 2:34 PM * Full Code Date Activated Date Inactivated Comments 12/05/2023 2:56 AM 12/06/2023 2:19 PM Care Teams Sem Manager Relationship Specialty Start Date End Date Velasquez Langley MD [address] [facility] [place] [address] PCP - General 12/02/23
--- OUTSIDE RECORDS SUMMARY | 2024-08-17 09:27 | XMS_ITS | Clinical Summary ---
Author Organization [facility] Address [address] [place] [address] Care Team Providers Care Water Treatment Plant Mechanic Name Role Phone Unavailable Primary Care Provider [...]
--- OUTSIDE RECORDS SUMMARY | 2024-08-17 09:27 | XMS_ITS | Encounter Summary ---
Author Organization [facility] Address [address] [place] [address] Care Team Providers Care Behavioral Scientist Name Role Phone Velasquez Langley MD Primary Care Provider [phone] Encounter Details Date Type Department Care Team (Late Contact Info) Description 05/31/2024 Abstract [facility] [address] [place] [address] Allyssa Guallpa LPN [address] [place] [address] Social History Tobacco Use Types [...] DERM [address] [place] [address] Althea Red MD [address] [place] [address] documented as of this encounter Visit Diagnoses Not on filedocumented in this encounter Care Teams Behavioral Scientist Relationship Specialty Start Date End Date Velasquez Langley MD PCP - General Family Medicine 01/06/23 documented as of this encounter
[2024-08-17 09:46] LABS: Total Protein Urine Random 11.1 mg/dL (<=11.9)
[2024-08-17 11:40] LABS: Bilirubin Urine NEGATIVE (NEGATIVE); Blood Urine NEGATIVE (NEGATIVE); Clarity Urine CLEAR (CLEAR); Color Urine LT. YELLOW (YELLOW); Glucose Urine UA NEGATIVE (NEGATIVE); Ketones Urine NEGATIVE (NEGATIVE); Leukocyte Esterase Urine NEGATIVE (NEGATIVE); Nitrite Urine NEGATIVE (NEGATIVE); Protein Urine NEGATIVE (NEG/TRACE); Specific Gravity Urine 1.015 (1.005-1.025); Urobilinogen Urine 0.2 EU/dL (0.2-1.0); pH Urine 5.5 (5.0-9.0)
[2024-08-17 11:51] LABS: Bacteria Urine TRACE #/HPF (NONE SEEN); Cast Seen? NONE SEEN #/LPF (NONE SEEN); Crystals Seen? None Seen #/HPF (None Seen); Mucus Urine NONE SEEN (NONE SEEN); RBC Urine NONE SEEN #/HPF (0-2); Squamous Epithelial Cell Urine RARE #/LPF (NONE/RARE); WBC Urine NONE SEEN #/HPF (NONE SEEN)
== END 2024-08-17 09:25 | disposition home or self-care (01) ==
LOC: LAB 09:24
PROVIDERS: PCP Family Medicine; Visit Provider Family Medicine
DX: N39.0 Urinary tract infection, site not specified (principal); I11.0 Hypertensive heart disease with heart failure
CPT/HCPCS: 81001; 84156; 87086

== ENCOUNTER 2024-08-23 11:08 | Outpatient (OUT) | payer MEDICARE, SELFPAY ==
[2024-08-23 11:33] LABS: Hemoglobin 11.6 g/dL (12.0-16.0)
[2024-08-23 11:52] LABS: Anion Gap 11.5; BUN Creatinine Ratio 32.8; Calcium 9.3 mg/dL (8.5-10.1); Carbon Dioxide 30.7 mmol/L (21.0-32.0); Chloride 107 mmol/L (98-107); Estimated GFR (African America 50 (>=60 mL/min/1.73m^2); Estimated GFR (Non-African Ame 41 (>=60 mL/min/1.73m^2); Glucose 100 mg/dL (74-106); Potassium 4.2 mmol/L (3.5-5.1); Sodium 145 mmol/L (136-145)
[2024-08-23 11:53] LABS: INR 0.98; Partial Thromboplastin Time 27.6 sec (22.3-36.2); Prothrombin Time 10.4 sec (9.0-11.6)
== END 2024-08-23 11:09 | disposition home or self-care (01) ==
LOC: LAB 11:10
PROVIDERS: PCP Family Medicine; Visit Provider Surgery
DX: K55.1 Chronic vascular disorders of intestine (principal)
CPT/HCPCS: 36415; 80048; 85018; 85610; 85730; 87081

== ENCOUNTER 2024-09-08 12:49 | Outpatient (OUT) | payer MEDICARE, SELFPAY ==
--- NOTE | 2024-09-08 13:00 | CA_ITS ---
Patient Name: ZACHARY MAYNARD MR#: [id number] : 1945 Exam Date: 09/08/2024 Ordering Doctor: DR ADINA BUNCH . ECHOCARDIOGRAM REPORT PROCEDURE: CA ECHO DOPPLER COMPLETE INDICATIONS: Acute heart failure, shortness of breath COMPARISON: None. DESCRIPTION: COMPLETE ECHOCARDIOGRAM Real-time transthoracic echocardiography with 2D, M-mode, spectral and color flow Doppler performed. QUALITY: Technical quality was good. LEFT VENTRICLE: Normal chamber size. Mildly increased left ventricular wall thickness. LV EF: Global left ventricular systolic function is normal. Visually estimated ejection fraction is 55 to 60%. No obvious wall motion abnormalities. DIASTOLIC: Unable to assess diastolic function. ATRIAL SEPTUM: Inadequately seen. LEFT ATRIUM: Normal chamber size. RIGHT ATRIUM: Normal chamber size. RIGHT VENTRICLE: Normal chamber size. Normal right ventricular systolic function. TRICUSPID VALVE: Normal mobility and thickness. No stenosis with trivial regurgitation. Unable to assess right-sided pressures due to lack of measurable tricuspid regurgitation. MITRAL VALVE: Normal mobility and thickness. No evidence of mitral valve stenosis. There is no mitral annular calcification. Trivial mitral regurgitation. AORTIC VALVE: Normal trileaflet appearance. Thickened aortic valve. Normal leaflet mobility. No evidence of aortic valve stenosis. No aortic regurgitation. AORTIC ROOT: Normal diameter and appearance. PULMONIC VALVE: Normal thickness and mobility. No stenosis. Trivial regurgitation. PERICARDIUM: Anterior free space; trivial effusion versus fat pad. IVC: Collapses with inspiration. Normal size. CONCLUSION: 1. Global left ventricular systolic function is normal; visually estimated ejection fraction is 55 to 60% 2. Normal right ventricular size and systolic function 3. Mild increased left ventricular wall thickness 4. No significant valvular abnormalities 5. Anterior free space; trivial effusion versus fat pad Adult Echocardiography Procedure Report Left Ventricle LVEDD (3.7 - 5.6 cm): 4.58 cm LVESD (2.2 - 4.0 cm): 3.34 cm LVIVS thickness (0.6 - 1.2 cm): 0.99 cm LVPW thickness (0.5 - 1.0 cm): 1.18 cm e': 0.07 m/s E - e': 11.14 LVOT Max Gradient: 2.88 mm[Hg] LVOT Area (cm2): 0.85 m/s Peak Velocity (LVOT): 0.85 m/s Mean Velocity (LVOT): 0.49 m/s LVOT Diameter 1.95 cm Left Ventricular Ejection Fraction: 64.51 % Left Atrium LA Volume Index (2D A2C): 33.35 ml/m2 Left Atrium Systolic Dimension: 4.21 cm Mitral Valve MV E to A Ratio: 0.79 Mitral Valve A-Wave Peak Velocity: 0.98 m/s Mitral Valve E-Wave Peak Velocity: 0.78 m/s Right Ventricle RV Internal Diastolic Dimension: 3.19 cm Aorta AO Root Diam: 3.12 cm Ascending Ao Diam: 2.72 cm Aortic Valve AoV Area (Peak Master): 2.25 cm2, 2.25 cm2 AoV Area (VTI): 2.28 cm2, 2.28 cm2 Peak Velocity(Antegrade Flow): 1.12 m/s Peak Gradient(Antegrade Flow): 5.03 mm[Hg] Mean Velocity(Antegrade Flow): 0.74 m/s Mean Gradient(Antegrade Flow): 2.56 mm[Hg] Velocity Time Integral: 23.42 cm Tricuspid Valve Peak Velocity (Regurgitant Flow): 1.34 m/s, 1.59 m/s Pulmonic Valve Mean Gradient: 1.09 mm[Hg] Mean Velocity: 0.48 m/s Peak Velocity: 0.75 m/s, 0.75 m/s Peak Gradient: 2.23 mm[Hg], 2.23 mm[Hg] Right Atrium Right Atrium Systolic Pressure: 37.30 ml, 37.30 ml Dictated by: Uziel Khan M.D. on 09/08/2024 at 18:09 Approved by: Uziel Khan M.D. on 09/08/2024 at 18:13
== END 2024-09-08 12:50 | disposition home or self-care (01) ==
LOC: CARD 12:50
PROVIDERS: PCP Family Medicine; Visit Provider Family Medicine
DX: R06.02 Shortness of breath (principal); I50.9 Heart failure, unspecified
CPT/HCPCS: 93306

== ENCOUNTER 2024-09-09 10:29 | Outpatient (OUT) | payer MEDICARE, SELFPAY ==
--- NOTE | 2024-09-09 10:33 | US_ITS ---
The [address] [address] Patient Name: ZACHARY MAYNARD MRN: [id number] date: 1945 Sex: F Assigned Patient Location: US Current Patient Location: US Accession/Order Number: [id number] Exam Date: 09/09/2024 11:28 Report Date: 09/09/2024 11:31 At the request of: ADINA BUNCH MD Procedure: US right upper quadrant LIMITED RIGHT UPPER QUADRANT ABDOMINAL ULTRASOUND CLINICAL HISTORY: Right upper quadrant and epigastric pain since aortic surgery. COMPARISON: 02/25/2024 CT The gallbladder is physiologically distended. Multiple echogenic shadowing gallstones are again seen. Sludge is also possible. No wall thickening or pericholecystic fluid is noted. No intrahepatic biliary dilatation is evident. The common duct is slightly prominent measuring 6 - 7 mm. No intraluminal filling defects are identified in the imaged segment. The liver is normal in echogenicity. No intrahepatic masses are seen. There is appropriate hepatopetal flow within the main portal vein. The pancreas shows no significant sonographic abnormality. Cursory evaluation of the right kidney reveals no hydronephrosis or fluid within Vásquez's pouch. US/US right upper quadrant IMPRESSION: CHOLELITHIASIS AND POSSIBLE SLUDGE. BORDERLINE PROMINENT COMMON DUCT, UNDETERMINED ETIOLOGY. Impression dictated by: Sammie Arizmendi M.D. 09/09/2024 11:31 AM Dictation Location: [place] [address] Electronically authenticated by: [id number] Y Date: 09/09/2024 11:31
== END 2024-09-09 10:30 | disposition home or self-care (01) ==
LOC: US 10:29
PROVIDERS: PCP Family Medicine; Visit Provider Family Medicine
DX: R10.11 Right upper quadrant pain (principal); K80.80 Other cholelithiasis without obstruction
CPT/HCPCS: 76705

== ENCOUNTER 2024-09-20 09:51 | Outpatient (RCR) | payer MEDICARE, SELFPAY | END 2024-11-11 09:29 | disposition home or self-care (01) | LOC: PT 09:51 | PROVIDERS: PCP Family Medicine; Visit Provider Family Medicine | DX: R53.1 Weakness (principal); R26.89 Other abnormalities of gait and mobility | CPT/HCPCS: 97110; 97112; 97163; 97530 ==

== ENCOUNTER 2024-12-17 10:47 | Emergency (ER) | payer MEDICARE, SELFPAY ==
--- OUTSIDE RECORDS SUMMARY | 2024-12-15 07:00 | XMS_ITS ---
Author Organization The [facility] in [place] Address [address] [place] [address] Care Team Providers Care Poultry Hatchery Supervisor Name Role Phone Enio Langley Primary Care Provider Allergies Allergen (clinical drug ingredient) Drug/Non Drug Allergy documented on EMR Reaction Allergy Type Onset Date Status Information temporarily unavailable Aspirin Excessive B leeding Drug Allergy ActiveInformation temporarily unavailableAtorvastatin CalciumUnknownDrug Allergy ActiveInformation temporarily unavailableAveloxUnknownDrug AllergyActive Information temporarily unavailableCiproUnknownDrug AllergyActiveInformation temporarily unavailableDemerolUnknownDrug AllergyActiveInformation temporarily unavailableNubainUnknownDrug AllergyActiveInformation temporarily unavailable PhenerganUnknownDrug AllergyActiveInformation temporarily unavailableCefdinir UnknownDrug AllergyActiveInformation temporarily unavailableSulfa Antibiotics UnknownDrug AllergyActive REASON FOR VISIT dizzy, hurting all over, patient states her bones are hurting Medications Medication SIG (Take, Route, Frequency, Duration) Notes Start Date End Date Status predniSONE 20 MG 3 tablets Orally Once a day; Du ration: 5 days 5ActiveAdbry 300 MG/2MLas directed Qnhcbwloyjph51/18/2025Active PreserVision AREDS 2ActiveOndansetron 4 MG1 tablet on the tongue and allow to dissolve Orally qid15ActiveSpiriva HandiHaler 18 MCG1 capsule by inhaling the contents of the capsule using the HandiHaler device Inhalation Once a [id number] SureClick 140 MG/MLas directed Subcutaneous 5ActiverOPINIRole HCl 0.5 MGTAKE 1 TABLET BY MOUTH 1 TO 3 HOURS BEFORE BEDTIME; Duration: 90ActivePlavix 75 MG1 tablet Orally Once a day08/31/2024 ActiveMemantine HCl ER 21 MGTAKE 1 CAPSULE BY MOUTH EVERY DAY; Duration: 90 days ActiveLiothyronine Sodium 5 MCGTAKE 2 TABLETS ON AN EMPTY STOMACH ORALLY ONCE A DAY 30 DAYS; Duration: 90 daysActiveMeclizine HCl 25 MGTAKE 1-2 TABLETS BY MOUTH THREE TIMES A DAY NEEDED.; Duration: 15ActiveAmoxicillin-Pot Clavulanate 875- 125 MG1 tablet Orally every 12 hrs; Duration: 10 days5ActiveCarvedilol 12.5 MG1 tablet with food Orally Twice a day5ActiveEliquis 5 MG1 tablet Orally bidActiveEzetimibe 10 MGTAKE 1 TABLET BY MOUTH DAILY; Duration: 90 days ActiveFerrous Sulfate 325 (65 Fe) MG1 tablet Orally BID5ActiveAlbuterol Sulfate 108 (90 Base) MCG/ACT2 puff as needed Inhalation daily5Active Amiodarone HCl 200 MG1 tablet Orally Once a dayActive Immunizations Vaccine Route Administration Date Status Comme nts Flu, Fluad (72025) 65 yrs and older, single-dose syringe () IM Intramuscular 12/15/2024 Administered Social History Tobacco Use: Social History Observation Description Date Details (start date - stop date) Former Smoker NA - 02/24/2010 Tobacco Use/Smoking Question Answer Notes Patient is a former smoker When did you stop smoking?02/24/2010 Vital Signs Height 63 in 12/15/2024 Blood pressure systolic 112 mm Hg 12/16/19 25 Blood pressure diastolic 70 mm Hg 025 Heart Rate 51 /min 12/15/2024 Oximetry 96 % 12/15/2024 Encounters Encounter Location Date Provider Diagnosis [place] [address] [place] [address] 12/15/2024 Enio Langley Acute non-recurrent sinusitis, unspecified location J01.90 ; Nasal congestion R09.81 and Encounter for immunization Z23 Assessments Encounter Date Diagnosis (ICD Code) Assessment Notes Treatment Notes Treatment Clinical Notes Section Notes 12/15/2024 Acute non-recurrent sinusitis, unspecified location (ICD-10 - J01.90) Rest and drink more liquids, especially water. You may use a humidifier or vaporizer to help keep the drainage moist. Fpym-bwd-rlhkusc Nasal Saline may help the stuffy and runny nose. Use Ibuprofen and or Tylenol as needed for fever, chills, body aches or pain. Children 5 years old should not be given crsg-abo-vmhuttl cough and cold medications such as guaifenesin and dextromethorphan. If you're over age 5, you may try zgxs-poa-ozaggkw cold medications such as guaifenesin and dextromethorphan, or multi-symptom cold reliever such as Dayquil to help reduce the symptoms. Antibiotics have been pre scribed. You should take these until completed and follow the directions. Antibiotics can sometimescause upset stomach, and in rare cases, serious allergic reactions or serious gastrointestinal problems. If you start having severe abdominal pain, severe vomiting, or bloody diarrhea, you should be r eevaluated by your physician or urgent care immediately. Follow up with your Primary Care Provider or return to clinic if symptoms do not improve within 3-5 days12/15/2024Nasal congestion (ICD-10 - R09.81)12/15/2024Encounter for immunization (ICD-10 - Z23) Plan Of Treatment Medication Medication Name Sig Start Date Stop Date Notes predniSONE 20 MG 3 tablets Orally Once a day; Duration : 5 days 12/15/2024 Ondansetron 4 MG1 tablet on the tongue and allow to dissolve Orally qid 12/15/2024moxicillin-Pot Clavulanate 875-125 MG1 tablet Orally every 12 hrs; Duration: 10 days12/15/2024Treatment Notes Assessment Notes Acute non-recurrent sinusiti s, unspecified location Rest and drink more liquids, especially water. You may use a humidifier or vaporizer to help keep the drainage moist. Axqm-xev-drylfgr Nasal Saline may help the stuffy and runny nose. Use Ibuprofen and or Tylenol as needed for fever, chills, body aches or pain. Children 5 years old should not be given cgxt-jgb-apzmqfz cough and cold medications such as guaifenesin and dextromethorphan. If you're over age 5, you may try eyag-ymv-fjevjob cold medications such as guaifenesin and dextromethorphan, [...] if symptoms do not improve within 3-5 days Next Appt Details Follow Up: 3-5 days if not i mproving, Reason: Medications Administered Medication Instructions Date of Administration Dosage Notes Dexamethasone, 4mg/mL mg Progress Notes * Earnest MAYNARDLissettB:[birth year] (79 yo F)Acc No.[id number]:12/15/2024 UNLOCKED PROGRESS NOTE Progress Note Patient: Shayy HARMAN :?Velasquez Langley ([facility]), MDDOB:1945???Age: 79 Y???Sex:FemaleDate:12/15/2024Phone:[phone]:[address], [id number] In:10:50 AM ESTCheck Out:11:55 AM EST Subjective: * Chief Complaints: * 1 . Dizzy, hurting all over, patient states her bones are hurting. * HPI: ???General:?Vertigo - been about a week - meclizine helped initially - but not now ON blood thinners so CVA unlikely. ???Sinusitis:? The patient complains of symptoms of sinus infection. The symptoms have been present for 1-2 days. The symptoms are moderate. Symptomatic treatment has included OTC medication. Associated symptoms include headache, facial pain, runny nose, nasal congestion. * ROS: ???Skin:?Rash?denies.?ENT:?Comments?See HPI for details.?Cardiovascular:?Edema?denies.?Palpitations?denies.?Respiratory:?Chest pain?denies.?Cough?denies.?Wheezing denies.?Gastrointestinal:?Abdominal pain?denies.?Nausea?denies.?Vomiting?denies.? * Medical History: D iabetes, Dizziness and [...] s epsis 2019, A-fib 12/17, Aorta Patch 01/2024, [facility] 2024. * Family History: F ather: . M other: , diagnosed with Diabetes. B rother(s): alive, diagnosed with Diabetes. S on(s): alive. D hildaer(s): alive. 4 brother(s) - healthy. 2 son(s) , 1 daughter(s) - healthy. . * Social History: ???Tobacco Use:?Tobacco Use/Smoking?Patient is a?former smoker ?When did you stop smoking??02/24/2010 * Medications: Peg Daily(Tralokinumab-ldrm) 300 MG/2ML Solution Auto-injector as directed Subcutaneous , Taking Albuterol Sulfate 108 (90 Base) MCG/ACT Aerosol Powder Breath Activated 2 puff as needed Inhalation daily , Taking Amiodarone HCl 200 MG Tablet 1 tablet Orally Once a day , Taking Carvedilol 12.5 MG Tablet 1 tablet with food Orally Twice a day , Taking Eliquis(Apixaban) 5 MG Tablet 1 tablet Orally bid , Taking Ezetimibe 10 MG Tablet TAKE 1 TABLET BY MOUTH DAILY , Taking Ferrous Sulfate 325 (65 Fe) MG Tablet 1 tablet Orally BID , Taking Liothyronine Sodium 5 MCG Tablet TAKE 2 TABLETS ON AN EMPTY STOMACH ORALLY ONCE A DAY 30 DAYS , Taking Meclizine HCl 25 MG Tablet TAKE 1-2 TABLETS BY MOUTH THREE TIMES A DAY NEEDED. , Taking Memantine HCl ER 21 MG Capsule Extended Release 24 Hour TAKE 1 CAPSULE BY MOUTH EVERY DAY , Taking Plavix(Clopidogrel Bisulfate) 75 MG Tablet 1 tablet Orally Once a day , Taking PreserVision AREDS 2 , Taking Repatha SureClick(Evolocumab) 140 MG/ML Solution Auto-injector as directed Subcutaneous , Taking rOPINIRole HCl 0.5 MG Tablet TAKE 1 TABLET BY MOUTH 1 TO 3 HOURS BEFORE BEDTIME , Taking Spiriva HandiHaler(Tiotropium [place]) 18 MCG Capsule 1 capsule by inhaling the contents of the capsule using the HandiHaler device Inhalation Once a day PRN , Discontinued Amoxicillin-Pot Clavulanate 875-125 MG Tablet 1 tablet Orally every 12 hrs , Notes to Pharmacist: Tolerateed in the past wtihout issue, Discontinued Isosorbide Mononitrate 10 MG Tablet 1.5 tablet Orally Twice a day , Discontinued Metoprolol Tartrate 50 MG Tablet TAKE 1 TABLET BY MOUTH TWICE A DAY WITH FOOD FOR 30 DAYS , Discontinued Pyridium(Phenazopyridine HCl) 200 MG Tablet 1 tablet after meals Orally Three times a day , Medication List reviewed and reconciled with the patient * Allergies: A spirin: Excessive Bleeding - Allergy - Criticality High, Atorvastatin Calcium, Demerol, Avelox, Cipro, Nubain, Phenergan, Cefdinir, Sulfa Antibiotics. Objective: * Vitals: W t: Not Taken - Patient Unable, Ht: 63 in, BP:112/70mm Hg, HR:51/min, Oxygen sat %:96%, Ht-cm: 160.02 cm. * Examination: ???General Examination: ?GENERAL APPEARANCE:? in no acute distress, well developed,well nourished.?ENT:? ear and nose external appearance normal, tympanic membranes clear bilaterally, facial tenderness to palpation over sinuses.?EYES:? pupils equal, round, reactive to light and accomodations.?ORAL CAVITY:? mucosa moist.?NECK:?neck supple, full range of motion, no cervical lymphadenopathy.?LUNGS:?clear to auscultation bilaterally.?CARDIO:? no murmurs, regular rate and rhythm, S1, S2 normal.?ABDOMEN:? soft, nontender , not distended, bowel sounds are active.?SKIN:? no suspicious lesions, warm and dry.?EXTREMITIES:? no clubbing, cyanosis, or edema.?NEUROLOGIC:? nonfocal, motor strength of upper/lower extremities intact , sensory exam intact.? Assessment: * Assessment: 1.?Acute non-recurrent sinusitis, unspecified location - J01.90 (Primary)???2.&# 160;Nasal congestion - R09.81???3.?Encounter for immunization - Z23?? Plan: * Treatment: Start Ondansetron Tablet Disintegrating, 4 MG, 1 tablet on the tongue and allow to dissolve, Orally, qid, 20, Refills 1;?Start Amoxicillin-Pot Clavulanate Tablet, 875-125 MG, 1 tablet, Orally, every 12 hrs, 10 days, 20 Tablet, Refills 0;?Start predniSONE Tablet, 20 MG, 3 tablets, Orally, Once a day, 5 days, 15 Tablet.?? Notes:Rest and drink more liquids, especially water. You may use a humidifier or vaporizer to help keep the drainage moist. Rrnc-nqb-qlwlxof Nasal Saline may help the stuffy and runny nose. Use Ibuprofen and or Tylenol as needed for fever, chills, body aches or pain. Children 5 years old should notbe given suta-hoz-hwoygoo cough and cold medications such as guaifenesin and dextromethorphan. If you're over age 5, you may try uxhy-yqc-mzrcsmd cold medications such as guaifenesin and dextromethorphan, [...] if symptoms do not improve within 3-5 days?? * Immunizations: Flu, Fluad (16614) 65 yrs and older, single-dose syringe () : 0.5 mL (Route: Intramuscular) given by Selena Meza SA on Left Deltoid (Encounter for immunization) * Therapeutic Injections: Dexamethasone, 4mg/mL : 8 mg (Route: Intramuscular) given by Selena Meza SA on left gluteus (Acute non-recurrent sinusitis, unspecified location) * Procedure Codes: 9 0653 FLU VACCINE ADJUVANT IM, G0008 ADMIN. INFLUENZA, 14812 THERAP.INJ. OF MED. INTRAMUSCULAR OR SUBCUTANEOUS, Modifiers: 59 , J1100 Dexamethasone, 4mg/mL, Units: 2.00 * Follow Up: 3 -5 days if not improving * * Electronic signature of Enio Langley MD, [id number] on 12/17/2024 at 10:55 AM EDT Sign off status: PendingVisit Status:?CHK (Check Out) * Provider: Toribio Langley ([facility])MD Date: Generated for Printing/Faxing/eTransmitting on:?12/17/2024 10:55 AM EDT History and Physical Notes * HPI (History of Present Illness) CategorySub-CategoryDetailNotesCategory NotesGeneral Vertigo - been about a week - meclizine helped initially - but not now ON blood thinners so CVA unlikely Examination CategorySub-CategoryDetailNotesCategory NotesGeneral ExaminationGENERAL APPEARANCE:in no acute distress, well developed, well nourishedENT:ear and nose external appearance normal, tympanic membranes clear bilaterally, facial tenderness topalpation over sinusesEYES:pupils equal, round, reactive to light and accomodationsNECK:neck supple, full range of motion, no cervical lymphadenopathyCARDIO:no murmurs, regular rate and rhythm, S1, S2 normalLUNGS: clear to auscultation bilaterallyABDOMEN:soft, nontender , not distended, bowel sounds are activeNEUROLOGIC:nonfocal, motor strength of upper/lower extremities intact , sensory exam intactSKIN:no suspicious lesions, warm and dryEXTREMITIES: no clubbing, cyanosis, or edemaORAL CAVITY:mucosa moist
[2024-12-17] VITALS (25 sets, daily range): BP systolic 160–242; BP diastolic 78–94; PULSE 51–90; TEMP 36.6; O2SAT 94–98; BMI 28.3
--- OUTSIDE RECORDS SUMMARY | 2024-12-17 10:55 | XMS_ITS | Encounter Summary ---
Author Organization The [facility] Address [address] [place] [address] Care Team Providers Care Order Clerk Name Role Phone Velasquez Langley MD Primary Care Provider [phone] Reason for Visit * ReasonCommentsMed Refill Encounter Details DateTypeDepartmentCare Team (Latest Contact Info)Dkmepfwpldw42/22/2025Refill [facility] Surgical Intensive Care [address] [address] Ron Crooks PA-C [address] [place] [address] Mesenteric artery stenosis Social History Tobacco UseTypesPacks/DayYears UsedDateSmoking Tobacco: FormerCigarettes Smokeless Tobacco: NeverAlcohol UseStandard Drinks/WeekCommentsNever0 (1 standard drink = 0.6 oz pure alcohol)[facility] UtilitiesAnswerDate RecordedIn the past 12 months has the [employer], gas, oil, or water [employer] threatened to shut off services in your home?No08/26/2024Humiliation, Afraid, Rape, and Kick questionnaireAnswerDate RecordedWithin the last year, have you been afraid of your partner or ex-partner?No08/26/2024Within the last year, have you been humiliated or emotionally abused in other ways by your partner or ex-partner?No 08/26/2024Within the last year, have you been kicked, hit, slapped, or otherwise physically hurt by your partner or ex-partner?No08/26/2024Within the last year, have you been raped or forced to have any kind of sexual activity by your part ner or ex-partner?No08/26/2024Social Connection and Isolation Panel [NHANES] AnswerDate RecordedIn a typical week, how many times do you talk on the phone with family, friends, or neighbors?More than three times a week01/27/2024How often do you get together with friends or relatives?More than three times a week 01/27/2024How often do you attend caodaism or jew services?Never01/27/2024o you belong to any clubs or organizations such as caodaism groups, unions, fraSeen or athletic groups, or school groups?No01/27/2024How often do you attend meetings of the clubs or organizations you belong to?Never01/27/2024re you , , , , never , or living with a partner?Zupwopa3501/27/2024UDIT-CAnswerDate RecordedQ1: How often do you have a drink containing alcohol?Never01/27/2024Q2: How many drinks containing alcohol do you have on a typical day when you are drinking?Patient does not drink 01/27/2024Q3: How often do you have six or more drinks on one occasion?Never 01/27/2024Overall Financial Resource Strain (CARDIA)AnswerDate RecordedHow hard is it for you to pay for the very basics like food, housing, medical care, and heating?Not hard at all08/26/2024PHQ-2AnswerDate RecordedPatient Health Questionnaire-2 [facility]470[facility] [place] [facility] - Occupational Stress QuestionnaireAnswerDate RecordedDo you feel stress - tense, restless, nervous, or anxious, or unable to sleep at night because yourmind is troubled all the time - these days?To some rjhaqe3901/27/2024TransportationAnswer Date RecordedIn the past 12 months, has lack of transportation kept you from medical appointments or from getting medications?No08/26/2024In the past 12 months, has lack of transportation kept you from meetings, work, or from getting things needed for daily living?No08/26/2024Housing Stability Vital SignAnswer Date RecordedIn the last 12 months, was there a time when you were not able to pay the mortgage or rent on time?No08/26/2024In the past 12 months, how many times have you moved where you were living?t any time in the past 12 months, were you homeless or living in a correction (including now)?No08/26/2024 Hunger Vital SignAnswerDate RecordedWithin the past 12 months, you worried that your food would run out before you got the money to buymore.Never true08/26/2024 Within the past 12 months, the food you bought just didn't last and you didn't have money to get more.Never true08/26/2024CommentsNoSex and Gender InformationValueDate RecordedSex Assigned at IdhilPndtoe90/03/2024 11:08 AM EST Legal TtsTwvqvh10/29/2022 11:01 PM EDTGender JickrzarNvvxno90/03/2024 11:08 AM ESTSexual OrientationHeterosexual or Tyytxfwy20/03/2024 11:08 AM ESTdocumented as of this encounter Plan of Treatment DateTypeDepartmentCare Team (Latest Contact Info)Weoujnknrau94/29/2025 2:00 PM EDTOffice Visit [facility] [address] [place] [address] Bhavesh Fulton MD [address] [place] [address] MS:[address] [place] [address] documented as of this encounter Visit Diagnoses Diagnosis Mesenteric artery stenosis Stricture of artery documented in this encounter Care Teams Team MemberRelationshipSpecialtyStart DateEnd Velasquez Langley MD [address] [facility] [address] [address] PCP - Mzosdlj54/8/24documented as of this encounter
--- OUTSIDE RECORDS SUMMARY | 2024-12-17 10:55 | XMS_ITS | Clinical Summary ---
Author Organization [employer] [facility] tem Address [id number] [address] [place] [address] Care Team Providers Care Adjuster And Inspector Name Role Phone Velasquez Langley MD Primary Care Provider [phone] Allergies Active AllergyReactionsCriticalityNoted YrqcKiczjthhJfjozxrryzgd73/22/2019 Xbifbtingwyry30/22/8707Sqlnyurnkn27/22/6800Jrzjubbxyd75/22/2019Promethazine 10/15/20188716Aqkkbdy-Ljk-Esl Reductase Vlmtklfbdp91/22/2019Sulfa (Sulfonamide Antibiotics)10/15/2018 Medications MedicationSigDispense QuantityRefillsLast FilledStart DateEnd DateStatus ezetimibe (ZETIA) 10 mg tablet Take 10 mg by mouth daily.Active irbesartan (AVAPRO) 300 mg tablet Take 300 mg by mouth nightly.Active metoprolol tartrate (LOPRESSOR) 50 mg tablet Take 100 mg by mouth 2 (two) times a day.Active Social History Tobacco UseTypesPacks/DayYears UsedDateSmoking Tobacco: FormerSmokeless Tobacco: NeverChildcareAnswerDate KkdyidppZshjnjoksNtjtufl49/12/2019EmploymentAnswerDate QylddhqqJfmknrhfqzPcmapzy48/12/2019Purpose - LifeAnswerDate RecordedPurpose and direction in nhshMhoonup15/11/2021CommentsNoSex and Gender Information ValueDate RecordedSex Assigned at BirthNot on fileLegal QtbScjyzr26/06/2015 11:42 AM EDTGender IdentityNot on fileSexual OrientationNot on file Last Filed Vital Signs Vital SignReadingTime TakenCommentsBlood Cbjpoevy162/7708 10:41 PM EDT Nderv2397 10:41 PM RFOFyhvxrbezvn49.7 ??C (98 ??F)10/15/2018 10:41 PM EDTRespiratory Rulr843110/15/2018 10:41 PM EDTOxygen Zmdirnllto35%10/15/2018 8:09 PM EDTInhaled Oxygen Concentration--Rftgic59.8 kg (165 lb)10/15/2018 7:26 PM EDT Xeexvx145.6 cm (5' 4 )10/15/2018 7:26 PM EDTBody Mass Index28.32010/15/2018 7:26 PM EDT Plan of Treatment Health MaintenanceDue DateLast DoneCommentsDepression Svezpmzyb68/30/1956Tobacco Wjuzaduwg90/30/1956DTaP,Tdap and Td Vaccines (1 - Tdap)05/23/1962Zoster (Shingles) Vaccine (1 of 2)05/23/1993Fall Risk Itditbyfo31/30/2009Influenza Dlzajqu2410/25/2024 Medical Devices Not on file Insurance Care Teams Team MemberRelationshipSpecialtyStart DateEnd Velasquez Langley MD PCP - GeneralFamily Medicine10/15/18
--- OUTSIDE RECORDS SUMMARY | 2024-12-17 10:55 | XMS_ITS | Clinical Summary ---
Author Organization [facility] Address [address] [place] [address] Care Team Providers Care Support Teacher Name Role Phone Unavailable Primary Care Provider Unavailabl e Social History Tobacco UseTypesPacks/DayYears UsedDateSmoking Tobacco: Never Assessed CommentsUnknownSex and Gender InformationValueDate RecordedSex Assigned at Not on fileLegal MvaQpaias90/02/2012 9:24 AM ESTGender IdentityNot on fileSexual OrientationNot on file Plan of Treatment Not on file
--- OUTSIDE RECORDS SUMMARY | 2024-12-17 10:55 | XMS_ITS | Clinical Summary ---
Author Organization [facility] Address [address] [address] Care Team Providers Care Company Laborer Name Role Phone Velasquez Langley MD Primary Care Provider [phone] Allergies Active AllergyReactionsCriticalityNoted YbefJsokydskSetcuqedhkmaKyvrf05/11/2024 Had to bring me back. Had to pump my heart KrxzjxmixuOmpwgtnuvomHtnx93/08/2024 Medications MedicationSigDispense QuantityRefillsLast FilledStart DateEnd DateStatus albuterol 90 mcg/actuation inhaler 2 puffs if needed.04/08/2023ctive ezetimibe (Zetia) 10 mg tablet Take 10 mg by mouth in the morning.Active memantine (Namenda XR) 28 mg capsule,sprinkle,ER 24hr Take 28 mg by mouth in the morning.Active rOPINIRole (Requip) 0.5 mg tablet Take 0.5 mg by mouth at bedtime.Active isosorbide mononitrate ER (Imdur) 30 mg 24 hr tablet Take 30 mg by mouth in the morning. Do not crush or chew.Active nitroglycerin (Nitrostat) 0.[address] 0.4 mg under the tongue every 5 (five) minutes if needed for chest pain. Active meclizine (Antivert) 25 mg tablet Take 50 mg by mouth if needed for dizziness.Active tiotropium (Spiriva with HandiHaler) 18 mcg inhalation capsule if needed.Active ferrous sulfate 325 (65 Fe) MG tablet Take 325 mg by mouth 2 times daily.Active carvedilol (Coreg) 6.25 mg tablet Indications:V-tach (CMS/HCC)Take 1 tablet (6.25 mg) by mouth two times daily. 180 tablet 301/31/516231/31/2026Active amiodarone (Pacerone) 200 mg tablet Indications:Paroxysmal atrial fibrillation (CMS/HCC)Take 1 tablet (200 mg) by mouth in the morning. 90 tablet 5Active Adbry 300 mg/2 mL auto-injector Inject 300 mg under the skin every 14 (fourteen) days.5Active evolocumab (Repatha SureClick) 140 mg/mL pen injector Indications:Mixed hyperlipidemiaInject 1 mL under the skin every 14 (fourteen) days. 6 mL 5Active metoprolol tartrate (Lopressor) 50 mg tablet Take 25 mg by mouth two times daily.5Active liothyronine (Cytomel) 5 mcg tablet Take by mouth in the morning.Active apixaban (Eliquis) 2.5 mg tablet Indications:V-tach (CMS/HCC)Take 2 tablets (5 mg) by mouth two times daily for 240 doses. 120 tablet 5Active clopidogrel (Plavix) 75 mg tablet Indications:Mesenteric artery stenosisTake 1 tablet (75 mg) by mouth in the morning for 120 doses. 30 tablet 5Active Active Problems ProblemNoted DateDiagnosed DateGallbladder colic08/27/2024hronic diastolic heart thpzofw0702/02/2024Mesenteric artery mzqygbol55/09/2024AA (abdominal aortic aneurysm) without yfufgon9601/27/2024enign hypertensive heart disease without congestive heart yyymmfi3512/31/2023oronary artery disease involving [place] coronary artery of [place] heart without angina awmgyouo52/06/2024Osteoarthritis 12/05/2023iabetes vcbgsrbo97/11/2024History of urinary tract infection 12/05/2023ladder outlet isrpmyppsnv99/11/2024ostinfective urethral stricture in fwmzaw0612/05/2023cute intractable nikppjze65/11/4099Juoekt42/11/2024Bladder /11/2024hronic obstructive pulmonary bdlemxp7612/05/2023ysuria 12/05/2023Female atvjurfyf56/11/2024etention of urine12/05/2023Flank pain 12/05/2023Gross hoklwyezn00/11/4832Twxzjxpapyfwkermfloa38/11/2024Other specified postprocedural ybbsjq5012/05/2023ostoperative pain of wojfaoyhj04/11/2024ight hand pain12/05/2023Stress incontinence of urine12/05/2023Urge incontinence of urine12/05/2023OPD without /11/2024trial xltthdpxqayf40/11/2024 Acute respiratory failure with imbizlf5112/05/2023NSVT (nonsustained ventricular tachycardia)12/02/2023yspnea on yzxotoni55/08/2024Moderate malnutrition 10/15/20194460Ovunmxqatuq88/19/2020 Overview (12/05/2023): Replacement after MRI Aneurysm of infrarenal abdominal aorta10/09/2019 Resolved Problems ProblemNoted DateDiagnosed DateResolved DateV-tachUnstable qeimax95HypertensionRight renal artery jersaaef38Secondary esbwkddxbalt70 Rpcaeozeipka06Hypertensive Tljuikwxltk54 Encounters DateTypeDepartmentCare AhkcCevdnpluykv61/22/2025Refill [facility] [address] [place] [address] Ron Crooks PA-C Mesenteric artery bujolfuq64/28/2025Telephone [facility] [address] [place] [address] Renetta Lainez MA from Last 3 Months Social History Tobacco UseTypesPacks/DayYears UsedDateSmoking Tobacco: FormerCigarettes Smokeless Tobacco: Never Tobacco Cessation:Counseling Given: Yes Alcohol UseStandard Drinks/WeekCommentsNever0 (1 standard drink = 0.6 oz pure alcohol)[facility] UtilitiesAnswerDate RecordedIn the past 12 months has the [employer], gas, oil, or water company threatened to shut off services in your home?No 08/26/2024Humiliation, Afraid, Rape, and Kick questionnaireAnswerDate Recorded Within the last year, have you been afraid of your partner or ex-partner?No 08/26/2024Within the last year, have you been humiliated or emotionally abused in other ways by your partner or ex-partner?No08/26/2024Within the last year, have you been kicked, hit, slapped, or otherwise physically hurt by your partner or ex-partner?No08/26/2024Within the last year, have you been raped or forced to have any kind of sexual activity by your partner or ex-partner?No08/26/2024 Social Connection and Isolation Panel [NHANES]AnswerDate RecordedIn a typical week, how many times do you talk on the phone with family, friends, or neighbors?More than three times a week01/27/2024How often do you get together with friends or relatives?More than three times a week01/27/2024How often do you attend mandaeism or moravian services?Never01/27/2024o you belong to any clubs or organizations such as mandaeism groups, unions, fraternal or athletic groups, or school groups?No01/27/2024How often do you attend meetings of the clubs or organizations you belong to?Never01/27/2024re you , , , , never , or living with a partner?Wvuveku4901/27/2024UDIT-C AnswerDate RecordedQ1: How often do you have a drink containing alcohol?Never 01/27/2024Q2: How many drinks containing alcohol do you have on a typical day when you are drinking?Patient does not drink01/27/2024Q3: How often do you have six or more drinks on one occasion?Never01/27/2024Overall Financial Resource Strain (CARDIA)AnswerDate RecordedHow hard is it for you to pay for the very basics like food, housing, medical care, and heating?Not hard at all08/26/2024 PHQ-2AnswerDate RecordedPatient Health Questionnaire-2 Hdtmy803[facility] [place] [facility] - Occupational Stress QuestionnaireAnswerDate RecordedDo you feel stress - tense, restless, nervous, or anxious, or unable to sleep at night because yourmind is troubled all the time - these days?To some nlkjcl2101/27/2024TransportationAnswerDate RecordedIn the past 12 months, has lack of transportation kept you from medical appointments or from getting medications?No08/26/2024In the past 12 months, has lack of transportation kept you from meetings, work, or from getting things needed for daily living?No 08/26/2024Housing Stability Vital SignAnswerDate RecordedIn the last 12 months, was there a time when you were not able to pay the mortgage or rent on time?No 08/26/2024In the past 12 months, how many times have you moved where you were living?t any time in the past 12 months, were you homeless or living in a nursing home (including now)?No08/26/2024Hunger Vital SignAnswerDate Recorded Within the past 12 months, you worried that your food would run out before you got the money to buymore.Never true08/26/2024Within the past 12 months, the food you bought just didn't last and you didn't have money to get more.Never true 08/26/2024CommentsNoSex and Gender InformationValueDate RecordedSex Assigned at SfbmtVqugwc08/03/2024 11:08 AM ESTLegal DkqSvfndr05/29/2022 11:01 PM EDTGender JlfgnpbdZjrzwp80/03/2024 11:08 AM ESTSexual OrientationHeterosexual or Zhusuids48/03/2024 11:08 AM EST Last Filed Vital Signs Vital SignReadingTime TakenCommentsBlood Yfgzvxwy390/5307 11:00 AM EDT Cpxlc960108/27/2024 11:00 AM TXUHmkqjhwdkxp88.2 ??C (98.9 ??F)08/27/2024 8:00 AM EDTRespiratory Gqfx958408/27/2024 11:00 AM EDTOxygen Viosgtptvi44%08/27/2024 11:00 AM EDTInhaled Oxygen Concentration--Ymmehy64.6 kg (166 lb 10.7 oz)08/27/2024 12:20 PM LQGKqvnnc141 cm (5' 3 )08/26/2024 11:28 AM EDTBody Mass Index29.52 08/26/2024 11:28 AM EDT Plan of Treatment DateTypeDepartmentCare Team (Latest Contact Info)Yqxqllrmfae16/29/2025 2:00 PM EDTOffice Visit [facility] [address] [place] [address] Bhavesh Fulton MD [address] [place] [address] Health MaintenanceDue DateLast DoneCommentsMedicare Annual Wellness (AWV) 4Diabetes: Retinopathy Epbjtyksa74/30/1954Adult Hnkutqd5205/23/1965Zoster Vaccines (1 of 2)05/23/1993Pneumococcal Vaccine: 50+ Years (2 of 2 - PCV) /Diabetes: Hemoglobin A1C/4COVID-19 Vaccine ( - season)/, 05/19/2020, 04/21/2020, Additional history existsInfluenza Vaccine (#1)/06/2019Depression Screening Fall Risk Aqgcynzup05/05/2024HIB VaccinesAged Out No longer eligible based on patient's age to complete this topicHPV VaccinesAged OutNo longer eligible based on patient's age to complete this topicIPV Vaccines Aged OutNo longer eligible based on patient's age to complete this topic Meningococcal B VaccineAged OutNo longer eligible based on patient's age to complete this topicMeningococcal VaccineAged OutNo longer eligible based on patient's age to complete this topicRotavirus VaccinesAged OutNo longer eligible based on patient's age to complete this topic Medical Devices ImplantedTypeAreaManufacturerDevice IdentifierShelf Expiration DateModel / Serial / LotHeli-Fx Health Safety Manager And Endoanchor Cassette Implanted:Qty: 1 on 01/28/2024 by [facility]AnchorN/A: [id number] / / [id number]:7 IMPLANTED, 10 COME IN A BOXEndurant Stent Graft System Implanted:Qty: 1 on 01/28/2024 by [facility]GraftN/A: [id number] / [id number] / Endurant Ii Stent Graft Implanted:Qty: 1 on 01/28/2024 by [facility]raftN/A: [id number] / [id number] / Description:LEFT COMMON ILIACEndurant Ii Stent Graft Implanted:Qty: 1 on 01/28/2024 by [facility]ep [facility] CampusGraftN/A: [id number] / [id number] / Description:RIGHT COMMON ILIACStent,Express2,Bili,[id number] - [id number] Implanted:Qty: 1 on 02/05/2024 by [facility]: AbdomenGlobal Silicon [id number] / / [id number],Expr Bili,Sd,6.7g01d413 - [id number] Implanted:Qty: 1 on 02/05/2024 by Gilberto [facility]itten [facility]N/A: AbdomenBOSModus Group, LLC. SCIENTIFIC/[id number] / / [id number] Procedures Procedure NamePriorityDate/TimeAssociated DiagnosisCommentsHEMOGLOBIN R2JCgy-Xd 12/05/2023 3:35 AM EDT from Last 3 Months or Most Recently Relevant to Health Maintenance Results * Hemoglobin A1c (12/05/2023 3:35 AM EDT)ComponentValueRef RangeTest Method Analysis TimePerformed AtPathologist SignatureHemoglobin A1C5.34.0 - 6.0 % 12/05/2023 10:16 AM [facility]Estimated Average Gunehjn455 mg/dL12/05/2023 10:16 AM [facility]Specimen (Source) Anatomical Location / LateralityCollection Method / VolumeCollection Time Received TimeBloodVenous blood specimen / UnknownArterial Line / Unknown 12/05/2023 3:35 AM EDT1 4:04 AM EDT Narrative Authorizing ProviderResult TypeResult StatusHani Rehan HERNANDEZ BLOOD ORDERABLES Final ResultPerforming OrganizationAddressCity/State/ZIP CodePhone Number [facility] [address] [place] [address] from Last 3 Months or Most Recently Relevant to [place] [address] Advance Directives * Full Code (Latest Code Status on File) Date ActivatedDate InactivatedComments08/26/2024 5:06 PM/05/2024 2:13 PM * Full Code Date ActivatedDate TpklrkkjgkrEhxhuool71/9/2024 6:08 AM02/12/2024 1:43 PM * Full Code Date ActivatedDate CkbtdirhmpzMioooukz19/3/2024 5:00 PM01/31/2024 2:34 PM * Full Code Date ActivatedDate YomwcyiwdahLrxvnhqg95/11/2024 2:56 AM12/06/2023 2:19 PM Care Teams Team MemberRelationshipSpecialtyStart DateEnd Date Velasquez Langley MD [address] [facility] [place] [address] [facility] - Pdmtcff19/8/24
--- OUTSIDE RECORDS SUMMARY | 2024-12-17 10:56 | XMS_ITS | Clinical Summary ---
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 Had to pump my heart BhjiuqpztcOtelobw88/04/2018 Other Reaction(s): Itching Promethazine Hcl1538RrxgbbiacpryFlktuvs73/04/2018 Other Reaction(s): Unknown Reaction SroigfpIfxzfnf16/04/2018Sulfa KwacvqroggfZydcruc45/04/2018 Other Reaction(s): Itching Wound Dressing DavdqxxyIpmpmsb94/30/2023 Medications MedicationSigDispense QuantityRefillsLast FilledStart DateEnd DateStatus memantine (Namenda Titration Pack) 28 x 5 MG & 21 x 10 MG tablet pack Take by mouth See administration instructions. Follow package directions.Active hydroCHLOROthiazide (HYDRODiuril) 12.5 MG tablet Take 25 mg by mouth in the morning.Active amitriptyline (Elavil) 10 MG tablet Take by mouth at bedtime.Active ezetimibe (Zetia) 10 MG tablet Take 10 mg by mouth in the morning.Active metFORMIN, OSM, (Fortamet) 500 MG 24 hr tablet Take 500 mg by mouth in the evening. Take with meals. Do not crush, chew, or split.Active Potassium (POTASSIMIN PO) Take by mouth.Active meclizine (Antivert) 25 MG tablet Take 25 mg by mouth 3 (three) times a day as needed for dizziness.Active pramipexole (Mirapex) 0.125 MG tablet Take 0.125 mg by mouth in the morning and 0.125 mg in the evening and 0.125 mg before bedtime.Active furosemide (Lasix) 8 MG/ML solution Take by mouth Daily.Active betamethasone, augmented, (Diprolene AF) 0.05 % cream Indications:Atopic DermatitisApply 1 application topically in the morning and 1 application before bedtime.Active empagliflozin (Jardiance) 10 MG Take 10 mg by mouth.Active Spiriva HandiHaler 18 MCG inhalation capsule inhale 1 capsule by inhalation route every day InhalationActive rOPINIRole (Requip) 0.5 MG tablet TAKE 1 TABLET BY MOUTH 1 TO 3 HOURS BEFORE BEDTIMEActive Nutritional Supplements (Ensure Active High Protein) liquid Take by mouth DailyActive nitroglycerin (Nitrostat) 0.[address] 0.4 mg under the tongueActive isosorbide mononitrate ER (Imdur) 30 MG 24 hr tablet Take 30 mg by mouth in the morning.Active hydrOXYzine HCl (Atarax) 25 MG tablet TAKE 1 TABLET BY MOUTH 4 TIMES A DAY NEEDED FOR 10 DAYS11/13/2023ctive Eliquis 5 MG tablet 5 mg every 12 (twelve) hoursActive amiodarone (Pacerone) 200 MG tablet TAKE 2 TABLETS BY MOUTH TWO TIMES DAILY FOR 14 DAYS, THEN TAKE 1 TABLET IN THE MORNING.01/09/2024ctive triamcinolone (Kenalog) 0.1 % cream Indications:Other atopic dermatitisApply to affected areas, up to twice a day when flared, do not use one the face, groin, or underarms, 30 day supply 454 g ctive Adbry 300 MG/2ML solution auto-injector Indications:Other atopic dermatitisInject 300 mg under the skin See administration instructions Inject 600 mg subcutaneous on day 1 followed by 300 mg subcutaneous on day 15 and every other week thereafter 8 mL 04/15/2025Active Adbry 300 MG/2ML solution auto-injector Indications:Other atopic dermatitisInject 300 mg under the skin every 14 (fourteen) days 4 mL 5Active Active Problems No known active problems Family History Medical HistoryRelationNameCommentsMelanomaNeg Hx Social History Tobacco UseTypesPacks/DayYears UsedDateSmoking Tobacco: FormerCigarettes Smokeless Tobacco: Never Tobacco Cessation:Counseling Given: Not Answered Comments:Last smoked: 10-15 years CommentsUnknownSex and Gender InformationValueDate RecordedSex Assigned at BirthNot on fileLegal PwkPoxoub74/15/2023 7:09 PM EDTGender IdentityNot on fileSexual OrientationNot on file Last Filed Vital Signs Vital SignReadingTime TakenCommentsBlood Pressure--Pulse--Temperature-- Respiratory Rate--Oxygen Saturation--Inhaled Oxygen Concentration--Pwiohh43.1 kg (159 lb)01/06/2023 10:45 AM EUSBbszll529 cm (5' 3 )01/06/2023 10:45 AM ESTBody Mass Index28.17103/08/2022 10:45 AM EST Plan of Treatment Health MaintenanceDue DateLast DoneCommentsPneumococcal Vaccine: 65+ Years (2 of 2 - PCV)/Influenza Vaccine (#1)/06/2019 Insurance Care Teams Team MemberRelationshipSpecialtyStart Date Velasquez Langley [facility] - [facility] Hzlgycfw68/13/23
--- OUTSIDE RECORDS SUMMARY | 2024-12-17 10:56 | XMS_ITS | Patient Health Record ---
Author Organization [facility] in [place] Address [address] [place] [address] Care Team Providers Care Data Processing Manager Name Role Phone Enio Langley Primary Care Provider Valerio Wang Unavailable [phone] Usman Zavala Unavailable [phone] Allergies Allergen (clinical drug ingredient) Drug/Non Drug Allergy documented on EMR Reaction Allergy Type Onset Date Status Information temporarily unavailable Aspirin Excessive B leeding Drug Allergy ActiveInformation temporarily unavailableAtorvastatin CalciumUnknownDrug Allergy ActiveInformation temporarily unavailableAveloxUnknownDrug AllergyActive Information temporarily unavailableCiproUnknownDrug AllergyActiveInformation temporarily unavailableDemerolUnknownDrug AllergyActiveInformation temporarily unavailableNubainUnknownDrug AllergyActiveInformation temporarily unavailable PhenerganUnknownDrug AllergyActiveInformation temporarily unavailableCefdinir UnknownDrug AllergyActiveInformation temporarily unavailableSulfa Antibiotics UnknownDrug AllergyActive Results Component Value Reference Range Notes UA DIP NONAUTO WO MICRO (810 02) - IN OFFICE Reviewed date:07/27/2024 04:20:30 PM Interpretation: Performing Lab: Notes/Report: COLOR yellow CLARITYclearGLUCOSEnBILIRUBINnKETONEnSPECIFIC GRAVITY1.575PMUBVkMH9ITBEKZAwaajz UROBILINOGENnNITRITEnLEUKOCYTE ESTERASE++UA DIP NONAUTO WO MICRO (64601) - IN OFFICE Reviewed date:08/16/2024 07:19:28 PM Interpretation: Performing Lab: Notes/Report: COLORstrawCLARITYclearGLUCOSEnBILIRUBINnKETONEnSPECIFIC GRAVITY1.037ARNGOfYU5 PROTEINtraceUROBILINOGENnNITRITEnLEUKOCYTE ESTERASE++BNP Reviewed date:08/16/2024 07:19:28 PM Interpretation: Performing Lab: Notes/Report: [facility] ,NT Pro B Type Natriuretic Clfw1306.0<=1800.0 pg/mLRESULTS CALLED TO DR. LANGLEY Performing Lab:see noteML - [facility] LBCBC AUTO DIFF Reviewed date:08/16/2024 06:39:10 PM Interpretation: Performing Lab: Notes/Report: [facility] ,White Blood Count7.34.0-11.0 10 3/uLRed Blood Count3.874.20-5.40 10 6/uL Adgqwjwtmk59.412.0-16.0 g/oPVvimmznmqu13.836.0-48.0 %Mean Corpuscular Vyxjzf71.5 81.0-99.0 fLMean Corpuscular Bthuctjmho53.526.7-34.0 pgMean Corpuscular HGB Conc 31.829.9-35.2 g/dLRed Cell Distribution Width16.911.0-15.0 %Platelet Ngkdn487 150-450 10 3/uLMean Platelet Shqyhg52.69.5-13.5 fLNeutrophils Percent Auto64.5 43.0-75.0 %Lymphocytes Percent Auto23.820.5-60.0 %Monocytes Percent Auto7.81.7- 12.0 %Eosinophils Percent Auto3.10.9-7.0 %Basophils Percent Auto0.30.2-2.0 % Immature Granulocytes Pct Auto0.50.0-0.5 %Neutrophils Absolute Auto4.71.4-6.5 10 3/uLLymphocytes Absolute Auto1.71.2-3.8 10 3/uLMonocytes Absolute Auto0.60.3-0.8 10 3/uLEosinophils Absolute Auto0.20.0-0.7 10 3/uLBasophils Absolute Auto0.00.0- 0.1 10 3/uLImmature Granulocytes Abs Auto0.040.00-0.03 10 3/uLPerforming Lab:see noteML - [facility] LBPROF 14(COMP METB) Reviewed date:08/16/2024 07:19:28 PM Interpretation: Performing Lab: Notes/Report: [facility] ,Trljfl369479-910 mmol/LPotassium4.53.5-5.1 mmol/VNexcrmfj64573-657 mmol/LCarbon Vjoaian01.421.0-32.0 mmol/LAnion Gap12.1Cjisqik92830-540 mg/dLBlood Urea Wxsvvfla24.07.0-18.0 mg/dLCreatinine1.480.55-1.02 mg/dLEstimated GFR ( Yqcqdll62>=60 mL/min/1.73m 2Estimated GFR (Non- Ame34>=60 mL/min/1.73m 2 BUN Creatinine Ratio30.5Jbpsmen4.88.5-10.1 mg/dLBilirubin Total0.40.2-1.0 mg/dL Aspartate Amino Wiqfbqrbrxj1421-29 U/LAlanine Xiczhfxqwlfyyksj5896-11 U/L Alkaline Ndfqbzpbymb37716-289 U/LTotal Protein6.26.4-8.2 g/dLAlbumin Level3.1 3.4-5.0 g/dLGlobulin3.1Albumin Globulin Ratio1.0Performing Lab:see noteML - [facility] LBUA DIP NONAUTO WO MICRO (65100) - IN OFFICE Reviewed date:10/20/2024 11:06:25 AM Interpretation: Performing Lab: Notes/Report: COLORYellowCLARITYClearGLUCOSENegBILIRUBINNegKETONENegSPECIFIC GRAVITY1.010BLOOD XdwCE3DOUCGBX+UROBILINOGENNegNITRITENegLEUKOCYTE ESTERASE++CBC AUTO DIFF Reviewed date:02/02/2024 10:16:01 AM Interpretation: Performing Lab: Notes/Report: [facility] ,White Blood Count9.64.0-11.0 10 3/uLRed Blood Count3.114.20-5.40 10 6/uL Hemoglobin8.812.0-16.0 g/sIGqahlyuytn62.836.0-48.0 %Mean Corpuscular Mgpuvs09.6 81.0-99.0 fLMean Corpuscular Gqyelfcein48.326.7-34.0 pgMean Corpuscular HGB Conc 30.629.9-35.2 g/dLRed Cell Distribution Width16.611.0-15.0 %Platelet Nsozz997 150-450 10 3/uLMean Platelet Audohi93.49.5-13.5 fLNeutrophils Percent Auto78.3 43.0-75.0 %Lymphocytes Percent Auto12.920.5-60.0 %Monocytes Percent Auto3.81.7- 12.0 %Eosinophils Percent Auto3.80.9-7.0 %Basophils Percent Auto0.40.2-2.0 % Immature Granulocytes Pct Auto0.80.0-0.5 %Neutrophils Absolute Auto7.51.4-6.5 10 3/uLLymphocytes Absolute Auto1.21.2-3.8 10 3/uLMonocytes Absolute Auto0.40.3-0.8 10 3/uLEosinophils Absolute Auto0.40.0-0.7 10 3/uLBasophils Absolute Auto0.00.0- 0.1 10 3/uLImmature Granulocytes Abs Auto0.080.00-0.03 10 3/uLPerforming Lab:see noteML - [facility] LBLACTATE or LACTIC ACID Reviewed date:02/02/2024 10:16:01 AM Interpretation: Performing Lab: Notes/Report: [facility] ,Lactate/Lactic Acid0.70.4-2.0 mmol/LPerforming Lab:see noteML - [facility] LBPROF 14(COMP METB) Reviewed date:02/02/2024 10:16:01 AM Interpretation: Performing Lab: Notes/Report: [facility] ,Dxhske620459-972 mmol/LPotassium4.43.5-5.1 mmol/UBuwfjlvp23888-997 mmol/LCarbon Dhgxrie04.221.0-32.0 mmol/LAnion Gap9.7Wulavvf07000-421 mg/dLBlood Urea Nitrogen 22.07.0-18.0 mg/dLCreatinine1.440.55-1.02 mg/dLEstimated GFR ( Akrcoou28 >=60 mL/min/1.73m 2Estimated GFR (Non- Ame35>=60 mL/min/1.73m 2BUN Creatinine Ratio15.2Rthoejr0.48.5-10.1 mg/dLBilirubin Total0.60.2-1.0 mg/dL Aspartate Amino Gpjngqrmfjo5689-48 U/LAlanine Wofcgrmstseczvoh6075-99 U/L Alkaline Adbtxzrklxe13134-129 U/LTotal Protein6.06.4-8.2 g/dLAlbumin Level2.6 3.4-5.0 g/dLGlobulin3.4Albumin Globulin Ratio0.8Performing Lab:see noteML - [facility] LBUA RANDOM W or MICROSCOPIC Reviewed date:02/02/2024 10:16:00 AM Interpretation: Performing Lab: Notes/Report: [facility] ,Color UrineLT. YELLOWYELLOWClarity UrineCLEARCLEARSpecific Blackwell Urine1.015 1.005-1.025pH Urine6.05.0-9.0Protein Czqkf76SBB/TRACE mg/dLGlucose Urine UA NEGATIVENEGATIVE mg/dLBilirubin UrineNEGATIVENEGATIVEKetones UrineNEGATIVE NEGATIVE mg/dLBlood UrineNEGATIVENEGATIVENitrite UrineNEGATIVENEGATIVE Urobilinogen Urine0.20.2-1.0 EU/dLLeukocyte Esterase UrineNEGATIVENEGATIVEWBC Urine0-2NONE SEEN #/HPFRBC Urine0-20-2 #/HPFBacteria UrineTRACENONE SEEN #/HPF Mucus UrineNONE SEENNONE SEENSquamous Epithelial Cell UrineRARENONE/RARE #/LPF Crystals Seen?None SeenNone Seen #/HPFCast Seen?NONE SEENNONE SEEN #/LPFUrine Culture IndicatedNOPerforming Lab:see noteML - [facility] LB Prothrombin Time INR Reviewed date:02/02/2024 10:16:00 AM Interpretation: Performing Lab: Notes/Report: [facility] ,Prothrombin Time11.19.0-11.6 secINR1.05 DESIRED INR: 2.0-3.0 CONDITIONS NOT LISTED BELOW 2.5-3.5 FOR PROSTHETIC HEART VALVE REPLACEMENT 2.5-3.5 RECURRENT THROMBOSIS Performing Lab:see noteML - [facility] LBTroponin I High Sensitivity Reviewed date:02/02/2024 10:16:01 AM Interpretation: Performing Lab: Notes/Report: [facility] ,Troponin I High Wlydjszjvtf14.34.0-51.3 pg/mL CUT-OFF POINTS HAVE BEEN ESTABLISHED BASED ON THE FOURTH UNIVERSAL DEFINITION OF MYOCARDIAL INFARCTION. THE UPPER REFERENCE LIMIT (URL) OF TROPONIN, DEFINED THE 99TH PERCENTILE OF cTnI DISTRIBUTION IN A REFERENCE POPULATION, HAS BEEN CONFIRMED THE DECISION THRESHOLD FOR MT DIAGNOSIS. 99TH PERCENTILE = 51.4 PG/ML NOTE: HIGH-SENSITIVITY TROPONIN ASSAY IS NOT INTENDED TO BE USED IN ISOLATION BUT SHOULD BE INTERPRETED IN CONJUNCTION WITH OTHER DIAGNOSTIC AND CLINICAL INFORMATION. 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 Signed By: 02/02/24 0529 DD/ 44 TD/TT: Data Processing Manager:CT head/brain wo con Reviewed date:02/02/2024 10:16:00 AM Interpretation: Performing Lab: Notes/Report: Source Facility: [place] [address] CT Scan Report Signed Patient: ZACHARY MAYNARD MR#: [id number] : 1945 Acct:[id number] Age/Sex: 78 / F ADM Date: 02/01/24 Loc: ER Attending Dr: Ordering Physician: Ryan Jamil Date of Service: 02/01/24 Procedure(s): CT head/brain wo con Accession Number(s): [id number] cc: Adina Langley M.D. [place] [address] Patient Name: ZACHARY MAYNARD MRN: [id number] date: 1945 Sex: F Assigned Patient Location: ER Current Patient Location: ED.MAIN Accession/Order Number: [id number] Exam Date: 02/01/2024 20:55 Report Date: 02/01/2024 22:29 At the request of: RYAN JAMIL Procedure: CT head/brain wo con EXAM: [...] M.D. Signed By: 02/01/242231 DD/ 28 TD/TT: Data Processing Manager:XR acute abdomen series Reviewed date:02/02/2024 10:16:00 AM Interpretation: Performing Lab: Notes/Report: Source Facility: [place] [address] XRay Report Signed Patient: ZACHARY MAYNARD MR#: [id number] : 1945 Acct:[id number] Age/Sex: 78 / F ADM Date: 02/01/24 Loc: ER Attending Dr: Ordering Physician: Ryan Jamil Date of Service: 02/01/24 Procedure(s): XR acute abdomen series Accession Number(s): [id number] cc: Adina Langley M.D.; Ryan Jamil [place] [address] Patient Name: ZACHARY MAYNARD MRN: [id number] date: 1945 Sex: F Assigned Patient Location: ER Current Patient Location: ER Accession/Order Number: [id number] Exam Date: 02/01/2024 20:55 Report Date: 02/01/2024 22:45 At the request of: RYAN JAMIL Procedure: XR acute abdomen series EXAM: [...] M.D. Signed By: 02/01/242247 DD/ 44 TD/TT: Data Processing Manager:CBC AUTO DIFF Reviewed date:02/02/2024 10:16:00 AM Interpretation: Performing Lab: Notes/Report: [facility] ,White Blood Count9.64.0-11.0 10 3/uLRed Blood Count3.144.20-5.40 10 6/uL Hemoglobin9.012.0-16.0 g/gNAaxaswkaus66.736.0-48.0 %Mean Corpuscular Wokoro40.4 81.0-99.0 fLMean Corpuscular Zdnetfdehj28.726.7-34.0 pgMean Corpuscular HGB Conc 31.429.9-35.2 g/dLRed Cell Distribution Width16.511.0-15.0 %Platelet Fzdje165 150-450 10 3/uLMean Platelet Fntlie03.49.5-13.5 fLNeutrophils Percent Auto81.3 43.0-75.0 %Lymphocytes Percent Auto10.420.5-60.0 %Monocytes Percent Auto4.81.7- 12.0 %Eosinophils Percent Auto2.50.9-7.0 %Basophils Percent Auto0.30.2-2.0 % Immature Granulocytes Pct Auto0.70.0-0.5 %Neutrophils Absolute Auto7.81.4-6.5 10 3/uLLymphocytes Absolute Auto1.01.2-3.8 10 3/uLMonocytes Absolute Auto0.50.3-0.8 10 3/uLEosinophils Absolute Auto0.20.0-0.7 10 3/uLBasophils Absolute Auto0.00.0- 0.1 10 3/uLImmature Granulocytes Abs Auto0.070.00-0.03 10 3/uLPerforming Lab:see noteML - [facility] LBTroponin I High Sensitivity Reviewed date:02/02/2024 10:16:00 AM Interpretation: Performing Lab: Notes/Report: [facility] ,Troponin I High Btyxavqgvlw36.74.0-51.3 pg/mL RESULTS CALLED TO RENEE HERMAN RN CUT-OFF POINTS HAVE BEEN ESTABLISHED BASED ON THE FOURTH UNIVERSAL DEFINITION OF MYOCARDIAL INFARCTION. THE UPPER REFERENCE LIMIT (URL) OF TROPONIN, DEFINED THE 99TH PERCENTILE OF cTnI DISTRIBUTION IN A REFERENCE POPULATION, HAS BEEN CONFIRMED THE DECISION THRESHOLD FOR MT DIAGNOSIS. 99TH PERCENTILE = 51.4 PG/ML NOTE: HIGH-SENSITIVITY TROPONIN ASSAY IS NOT INTENDED TO BE USED IN ISOLATION BUT SHOULD BE INTERPRETED IN CONJUNCTION WITH OTHER DIAGNOSTIC AND CLINICAL INFORMATION. Performing Lab:see noteML - [facility] LBCT angio abdomen pelvis Reviewed date:02/02/2024 10:16:00 AM Interpretation: Performing Lab: Notes/Report: Source Facility: [place] [address] [place] [address] CT Scan Report Signed Patient: ZACHARY MAYNARD MR#: [id number] : 1945 Acct:[id number] Age/Sex: 78 / F ADM Date: 02/01/24 Loc: ER Attending Dr: Ordering Physician: Ryan Jamil Date of Service: 02/01/24 Procedure(s): CT angio abdomen pelvis Accession Number(s): [id number] cc: Adina Langley M.D. [place] [id number] Patient Name: ZACHARY MAYNARD MRN: [id number] date: 1945 Sex: F Assigned Patient Location: ER Current Patient Location: ER Accession/Order Number: [id number] Exam Date: 02/01/2024 23:12 Report Date: 02/02/2024 00:41 At the request of: RYAN JAMIL Procedure: CT angio abdomen pelvis CT [...] Daniels M.D. Signed By: 02/02/2442 DD/ TD/TT: Data Processing Manager:CBC AUTO DIFF Reviewed date:02/16/2024 07:54:36 PM Interpretation: Performing Lab: Notes/Report: [facility] ,White Blood Count6.64.0-11.0 10 3/uLRed Blood Count2.994.20-5.40 10 6/uL Hemoglobin8.412.0-16.0 g/vTQxmynxzrtj78.336.0-48.0 %Mean Corpuscular Weduzf55.3 81.0-99.0 fLMean Corpuscular Iynrttcvwp39.126.7-34.0 pgMean Corpuscular HGB Conc 30.829.9-35.2 g/dLRed Cell Distribution Width16.611.0-15.0 %Platelet Ngijc154 150-450 10 3/uLMean Platelet Oivqmm48.39.5-13.5 fLNeutrophils Percent Auto65.3 43.0-75.0 %Lymphocytes Percent Auto16.820.5-60.0 %Monocytes Percent Auto11.41.7- 12.0 %Eosinophils Percent Auto4.40.9-7.0 %Basophils Percent Auto0.90.2-2.0 % Immature Granulocytes Pct Auto1.20.0-0.5 %Neutrophils Absolute Auto4.31.4-6.5 10 3/uLLymphocytes Absolute Auto1.11.2-3.8 10 3/uLMonocytes Absolute Auto0.80.3-0.8 10 3/uLEosinophils Absolute Auto0.30.0-0.7 10 3/uLBasophils Absolute Auto0.10.0- 0.1 10 3/uLImmature Granulocytes Abs Auto0.080.00-0.03 10 3/uLPerforming Lab:see noteML - [facility] LBXR wrist LT min 3V Reviewed date:04/04/2024 11:16:15 AM Interpretation: Performing Lab: Notes/Report: Source Facility: [facility]-[address] [place] [address] [place] [address] XRay Report Signed Patient: ZACHARY MAYNARD MR#: [id number] : 1945 Acct:[id number] Age/Sex: 78 / F ADM Date: 04/01/24 Loc: RAD Attending Dr: Adina Langley M.D. Ordering Physician: Adina Langley M.D. Date of Service: 04/01/24 Procedure(s): XR wrist LT min 3V Accession Number(s): [id number] cc: Adina Langley M.D. [place] [address] Patient Name: ZACHARY MAYNARD MRN: [id number] date: 1945 Sex: F Assigned Patient Location: [facility] Current Patient Location: [facility] Accession/Order Number: [id number] Exam Date: 04/01/2024 16:08 Report Date: 04/01/2024 21:52 At the request of: ADINA LANGLEY Procedure: XR wrist LT min 3V [...] M.D. Signed By: 04/01/242153 DD/ 51 TD/TT: Data Processing Manager:RT pulmonary function test Reviewed date:07/05/2024 08:47:56 PM Interpretation: Performing Lab: Notes/Report: Source Facility: [place] [address] [place] [address] Respiratory Report Signed Patient: ZACHARY MAYNARD MR#: [id number] : 1945 Acct:[id number] Age/Sex: 79 / F ADM Date: 06/30/24 Loc: CARD Attending Dr: Dipti Fulton M.D. Ordering Physician: Dipti Fulton M.D. Date of Service: 06/30/24 Procedure(s): RT pulmonary function test Accession Number(s): [id number] cc: [facility] Test Date: 2024-06-30 Pat Name: ZACHARY MAYNARD Department: Room: - Gender: Female Merchant Seaman: Alisa Bradley RRT : 1945 Requested By: Dipti Fulton Order Number: [id number] Reading MD: Usman Zavala Interpretive Statements Pulmonary function testing was completed according to ATS criteria. Findings were considered accurate and reproducible with exception of panting maneuvers. Both pre- and post-bronchodilator values utilized for spirometry. Spirometry (based on pre-bronchodilator values): -FEV1/FVC: Reduced @ 58% -FEV1: Normal @ 119% -FVC: Supra-normal @ 149% -LMS15-03%: Reduced @ 67% -There is a partial [...] 07/05/24 1601 07/05/24 1601 DD/ 1247 TD/TT: Data Processing Manager:СВЕТЛАНА RAND URINE Reviewed date:08/18/2024 09:07:26 PM Interpretation: Performing Lab: Notes/Report: [facility] ,Total Protein Urine Elxujy32.1<=11.9 mg/dLPerforming Lab:see noteML - [facility] LBPROF CHEM 8 (BAS METB) Reviewed date:08/23/2024 09:16:19 PM Interpretation: Performing Lab: Notes/Report: [facility] ,Toajzc599138-188 mmol/LPotassium4.23.5-5.1 mmol/IEmxafuhw47995-180 mmol/LCarbon Dbtdmdg14.721.0-32.0 mmol/LAnion Gap11.1Hphbmiu24989-372 mg/dLBlood Urea Edfeqnqt82.07.0-18.0 mg/dLCreatinine1.250.55-1.02 mg/dLEstimated GFR ( Aqwgpie19>=60 mL/min/1.73m 2Estimated GFR (Non- Ame41>=60 mL/min/1.73m 2 BUN Creatinine Ratio32.8Saxffwv7.38.5-10.1 mg/dLPerforming Lab:see noteML - [facility] LBHEMOGLOBIN Reviewed date:08/23/2024 09:16:19 PM Interpretation: Performing Lab: Notes/Report: [facility] ,Ouwpxnmlfe10.612.0-16.0 g/dLPerforming Lab:see noteML - [facility] LBUrine Culture - [facility] Reviewed date:08/19/2024 07:15:04 PM Interpretation: Performing Lab: Notes/Report: [facility] ,Urine Culture - FRMCSee Below For Report Urine Culture - [facility] <9,000 colonies/ml mixed Urine Culture - FRMCbacterial skin contaminants Urine Culture - [facility] <9,000 colonies/ml mixed Urine Culture - [facility]2 Days Urine Culture - [facility] <9,000 colonies/ml mixed Urine Culture - [facility] Urine Culture - [facility] <9,000 colonies/ml mixed [facility]rine [facility] - [facility] <9,000 colonies/ml mixed Urine Culture - [id number] [place] [address] Urine Culture - [facility] <9,000 colonies/ml mixed Performing Lab:see noteML - [facility] LBUA RANDOM W or MICROSCOPIC Reviewed date:08/18/2024 09:07:26 PM Interpretation: Performing Lab: Notes/Report: [facility] ,Color UrineLT. YELLOWYELLOWClarity UrineCLEARCLEARSpecific Blackwell Urine1.015 1.005-1.025pH Urine5.55.0-9.0Protein UrineNEGATIVENEG/TRACE mg/dLGlucose Urine UANEGATIVENEGATIVE mg/dLBilirubin UrineNEGATIVENEGATIVEKetones UrineNEGATIVE NEGATIVE mg/dLBlood UrineNEGATIVENEGATIVENitrite UrineNEGATIVENEGATIVE Urobilinogen Urine0.20.2-1.0 EU/dLLeukocyte Esterase UrineNEGATIVENEGATIVEWBC UrineNONE SEENNONE SEEN #/HPFRBC UrineNONE SEEN0-2 #/HPFBacteria UrineTRACENONE SEEN #/HPFMucus UrineNONE SEENNONE SEENSquamous Epithelial Cell UrineRARE NONE/RARE #/LPFCrystals Seen?None SeenNone Seen #/HPFCast Seen?NONE SEENNONE SEEN #/LPFPerforming Lab:see noteML - [facility] LBXR chest 2V Reviewed date:08/16/2024 06:39:10 PM Interpretation: Performing Lab: Notes/Report: Source Facility: [facility]-[address] [place] [address] [place] [address] XRay Report Signed Patient: ZACHARY MAYNARD MR#: [id number] : 1945 Acct:[id number] Age/Sex: 79 / F ADM Date: 08/16/24 Loc: LAB Attending Dr: Adina Langley M.D. Ordering Physician: Adina Langley M.D. Date of Service: 08/16/24 Procedure(s): XR chest 2V Accession Number(s): [id number] cc: Adina Langley M.D. [address] [address] Patient Name: ZACHARY MAYNARD MRN: [id number] date: 1945 Sex: F Assigned Patient Location: LAB Current Patient Location: LAB Accession/Order Number: [id number] Exam Date: 08/16/2024 16:24 Report Date: 08/16/2024 16:27 At the request of: ADINA LANGLEY MD Procedure: XR chest 2V XR chest 2V 08/16/2024 4:16 PM SIGNS AND SYMPTOMS: Shortness of breath, UTI PROTOCOL: Frontal and lateral radiograph of the chest COMPARISON: 02/25/2024 FINDINGS: The trachea is midline. Atherosclerotic changes are present in the thoracic aorta. The heart and mediastinal structures are within normal limits. Mild dependent scarring or atelectasis is noted in the lung bases. The bony thorax is intact. XR/XR chest 2V IMPRESSION: No acute cardiopulmonary pathology. Impression dictated by: Xavier Bonds M.D. 08/16/2024 4:27 PM Dictation Location: [place] [address] Electronically authenticated by: [id number] Y Date: 08/16/2024 16:27 Dictated By: Xavier Bonds M.D. Signed By: 08/16/24 1629 DD/ 1627 TD/TT: Data Processing Manager:TSH Reviewed date:08/16/2024 07:19:28 PM Interpretation: Performing Lab: Notes/Report: [facility] ,Thyroid Stimulating Hormone4.4180.358-3.740 uIU/mLPerforming Lab:see noteML - [facility] LBT4 Reviewed date:08/16/2024 07:19:28 PM Interpretation: Performing Lab: Notes/Report: [facility] ,T4 Dubblbpdu24.304.80-13.90 ug/dLPerforming Lab:see noteML - [facility] LBFREE T3 Reviewed date:08/16/2024 07:19:28 PM Interpretation: Performing Lab: Notes/Report: [facility] ,Free T31.702.18-3.98 pg/mLPerforming Lab:see note - [facility] LB SGPT Reviewed date:07/27/2024 04:20:30 PM Interpretation: Performing Lab: Notes/Report: [facility] ,Alanine Jedrtnnqzfuvvnbc4229-19 U/LPerforming Lab:see note - [facility] LBSGOT Reviewed date:07/27/2024 04:20:30 PM Interpretation: Performing Lab: Notes/Report: [facility] ,Aspartate Amino Eqkxosmsfah6198-96 U/LPerforming Lab:see note - [facility] LBLIPID PROFILE Reviewed date:07/27/2024 04:20:30 PM Interpretation: Performing Lab: Notes/Report: [facility] ,Ilnvinkydisin604<=150 mg/pNHjojdakhroj827<=200 mg/dLHDL Yxucbpptmdm0616-47 mg/dL > or =60 mg/dl - LOW CARDIOVASCULAR RISK <40 mg/dl - HIGH CARDIOVASCULAR RISK LDL Cholesterol Evzzipzymo68.0 <100 mg/dl OPTIMAL 100-129 mg/dl NEAR OR ABOVE OPTIMAL 130-159 mg/dl BORDERLINE HIGH 160-189 mg/dl HIGH >190 mg/dl VERY HIGH VLDL AFXXUPSXILT54.2Chol HDL Ratio3.3 3.3 - 4.4 LOW RISK 4.4 - 7.1 AVERAGE RISK 7.1 - 11.0 MODERATE RISK >11.0 HIGH RISK Performing Lab:see note - [facility] LBHEMOGLOBIN Reviewed date:06/30/2024 01:21:43 PM Interpretation: Performing Lab: Notes/Report: [facility] ,Dbxwlxzubc26.312.0-16.0 g/dLPerforming Lab:see note - [facility] LBUS venous doppler UE RT Reviewed date:04/01/2024 07:57:13 AM Interpretation: Performing Lab: Notes/Report: Source Facility: [facility]-[address] [place] [address] [place] [address] Ultrasound Report Signed Patient: ZACHARY MAYNARD MR#: [id number] : 1945 Acct:[id number] Age/Sex: 78 / F ADM Date: 03/31/24 Loc: RAD Attending Dr: Adina Langley M.D. Ordering Physician: Adina Langley M.D. Date of Service: 03/31/24 Procedure(s): US venous doppler UE LT Accession Number(s): [id number] cc: Adina Langley M.D. [place] [id number] Patient Name: ZACHARY MAYNARD MRN: [id number] date: 1945 Sex: F Assigned Patient Location: [facility] Current Patient Location: Accession/Order Number: [id number] Exam Date: 03/31/2024 16:27 Report Date: 04/01/2024 07:35 At the request of: ADINA LANGLEY Procedure: US venous doppler UE LT [...] Dictated By: Valerio Hooker M.D. Signed By: 04/01/24 0738 DD/ 0735 TD/TT: Data Processing Manager:CT abdomen pelvis wo con Reviewed date:02/29/2024 05:39:20 PM Interpretation: Performing Lab: Notes/Report: Source Facility: [place] [address] [place] [address] CT Scan Report Signed Patient: ZACHARY MAYNARD MR#: [id number] : 1945 Acct:[id number] Age/Sex: 78 / F ADM Date: 02/25/24 Loc: ER Attending Dr: Ordering Physician: Valentina Guzman Date of Service: 02/25/24 Procedure(s): CT abdomen pelvis wo con Accession Number(s): [id number] cc: Adina Langley M.D. [place] [address] Patient Name: ZACHARY MAYNARD MRN: [id number] date: 1945 Sex: F Assigned Patient Location: ER Current Patient Location: ER Accession/Order Number: [id number] Exam Date: 02/25/2024 19:38 Report Date: 02/25/2024 20:08 At the request of: VALENTINA GUZMAN Procedure: CT abdomen pelvis wo con [...] No visible pulmonary arterial thrombus or attenuation. STEVEN: No mass or adenopathy. MEDIASTINUM: No mass [...] of the femoral heads. Electronically authenticated by: JASE SWEENEY Date: 02/25/2024 20:08 Dictated By: Jase Sweeney M.D. Signed By: 02/25/242010 DD/ 07 TD/TT: Data Processing Manager:CT chest wo con Reviewed date:02/29/2024 05:39:19 PM Interpretation: Performing Lab: Notes/Report: Source Facility: [place] [address] CT Scan Report Signed Patient: ZACHARY MAYNARD MR#: [id number] : 1945 Acct:[id number] Age/Sex: 78 / F ADM Date: 02/25/24 Loc: ER Attending Dr: Ordering Physician: Valentina Guzman Date of Service: 02/25/24 Procedure(s): CT chest wo con Accession Number(s): [id number] cc: Adina Langley M.D. [place] [address] Patient Name: ZACHARY MAYNARD MRN: [id number] date: 1945 Sex: F Assigned Patient Location: ER Current Patient Location: ER Accession/Order Number: [id number] Exam Date: 02/25/2024 19:38 Report Date: 02/25/2024 20:08 At the request of: VALENTINA GUZMAN Procedure: CT chest wo con EXAMINATION: [...] No visible pulmonary arterial thrombus or attenuation. STEVEN: No mass or adenopathy. MEDIASTINUM: No mass [...] of the femoral heads. Electronically authenticated by: JASE SWEENEY Date: 02/25/2024 20:08 Dictated By: Jase Sweeney M.D. 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 Signed By: 02/28/24810 DD/ 57 TD/TT: Data Processing Manager:Troponin I High Sensitivity Reviewed date:02/29/2024 05:39:20 PM Interpretation: Performing Lab: Notes/Report: [facility] ,Troponin I High Sensitivity8.44.0-51.3 pg/mL CUT-OFF POINTS HAVE BEEN ESTABLISHED BASED ON THE FOURTH UNIVERSAL DEFINITION OF MYOCARDIAL INFARCTION. THE UPPER REFERENCE LIMIT (URL) OF TROPONIN, DEFINED THE 99TH PERCENTILE OF cTnI DISTRIBUTION IN A REFERENCE POPULATION, HAS BEEN CONFIRMED THE DECISION THRESHOLD FOR MT DIAGNOSIS. 99TH PERCENTILE = 51.4 PG/ML NOTE: HIGH-SENSITIVITY TROPONIN ASSAY IS NOT INTENDED TO BE USED IN ISOLATION BUT SHOULD BE INTERPRETED IN CONJUNCTION WITH OTHER DIAGNOSTIC AND CLINICAL INFORMATION. Performing Lab:see noteML - [facility] LBProthrombin Time INR Reviewed date:02/29/2024 05:39:20 PM Interpretation: Performing Lab: Notes/Report: [facility] ,Prothrombin Time11.19.0-11.6 secINR1.05 DESIRED INR: 2.0-3.0 CONDITIONS NOT LISTED BELOW 2.5-3.5 FOR PROSTHETIC HEART VALVE REPLACEMENT 2.5-3.5 RECURRENT THROMBOSIS Performing Lab:see noteML - [facility] LBPROF 14(COMP METB) Reviewed date:02/29/2024 05:39:20 PM Interpretation: Performing Lab: Notes/Report: [facility] ,Qghemk044751-760 mmol/LPotassium4.33.5-5.1 mmol/ZQoxtzujc97263-169 mmol/LCarbon Rxqhyxw20.421.0-32.0 mmol/LAnion Gap11.8Icpkjxj53205-666 mg/dLBlood Urea Nzhuuobc54.07.0-18.0 mg/dLCreatinine1.890.55-1.02 mg/dLEstimated GFR ( Qxirsvb87>=60 mL/min/1.73m 2Estimated GFR (Non- Ame26>=60 mL/min/1.73m 2 BUN Creatinine Ratio13.4Sdstado3.98.5-10.1 mg/dLBilirubin Total0.40.2-1.0 mg/dL Aspartate Amino Nnbddnjidpc6545-84 U/LAlanine Enthigthngfzxfre0365-61 U/L Alkaline Opmescssdix87758-884 U/LTotal Protein6.26.4-8.2 g/dLAlbumin Level2.9 3.4-5.0 g/dLGlobulin3.3Albumin Globulin Ratio0.9Performing Lab:see noteML - [facility] LBLIPASE Reviewed date:02/29/2024 05:39:20 PM Interpretation: Performing Lab: Notes/Report: [facility] ,Szbacm17.016.0-77.0 U/LPerforming Lab:see noteML - [facility] LBCBC AUTO DIFF Reviewed date:02/29/2024 05:39:20 PM Interpretation: Performing Lab: Notes/Report: [facility] ,White Blood Count5.04.0-11.0 10 3/uLRed Blood Count3.154.20-5.40 10 6/uL Hemoglobin8.812.0-16.0 g/lOPmzynkspvm42.436.0-48.0 %Mean Corpuscular Bsrpvh82.2 81.0-99.0 fLMean Corpuscular Fprthdyvxn43.926.7-34.0 pgMean Corpuscular HGB Conc 31.029.9-35.2 g/dLRed Cell Distribution Width16.911.0-15.0 %Platelet Qysqz090 150-450 10 3/uLMean Platelet Ydjgih81.89.5-13.5 fLNeutrophils Percent Auto53.7 43.0-75.0 %Lymphocytes Percent Auto28.920.5-60.0 %Monocytes Percent Auto8.91.7- 12.0 %Eosinophils Percent Auto7.50.9-7.0 %Basophils Percent Auto0.60.2-2.0 % Immature Granulocytes Pct Auto0.40.0-0.5 %Neutrophils Absolute Auto2.71.4-6.5 10 3/uLLymphocytes Absolute Auto1.41.2-3.8 10 3/uLMonocytes Absolute Auto0.40.3-0.8 10 3/uLEosinophils Absolute Auto0.40.0-0.7 10 3/uLBasophils Absolute Auto0.00.0- 0.1 10 3/uLImmature Granulocytes Abs Auto0.020.00-0.03 10 3/uLPerforming Lab:see noteML - [facility] LBBNP Reviewed date:02/29/2024 05:39:20 PM Interpretation: Performing Lab: Notes/Report: [facility] ,NT Pro B Type Natriuretic Nrad8780.0<=1800.0 pg/mLRESULTS CALLED TO ROSA ANDRADE RN at 1956Performing Lab:[facility] LBPROF CHEM 8 (BAS METB) Reviewed date:02/16/2024 07:54:36 PM Interpretation: Performing Lab: Notes/Report: [facility] ,Fgscqt047498-896 mmol/LPotassium4.93.5-5.1 mmol/RKtewbhep11722-459 mmol/LCarbon Iobzjik83.021.0-32.0 mmol/LAnion Gap12.4Idaaqzz48387-223 mg/dLBlood Urea Zkserjpe91.07.0-18.0 mg/dLCreatinine1.780.55-1.02 mg/dLEstimated GFR ( Cupojdp17>=60 mL/min/1.73m 2Estimated GFR (Non- Ame27>=60 mL/min/1.73m 2 BUN Creatinine Ratio11.0Pfenxuw6.28.5-10.1 mg/dLPerforming Lab:see note - [facility] LBBNP Reviewed date:02/02/2024 10:16:01 AM Interpretation: Performing Lab: Notes/Report: [facility] ,NT Pro B Type Natriuretic Stcy6442.0<=1800.0 pg/mLRESULTS CALLED TO RENEE CEDEÑO) IN ERPerforming Lab:see note - [facility] LBBLOOD GASES BTY Reviewed date:02/02/2024 10:16:01 AM Interpretation: Performing Lab: Notes/Report: [facility] ,pH ABG7.3827.350-7.450ABG OTJ803.435.0-45.0 mmHgPO2 ABG57.380.0-100.0 mmHg RESULTS CALLED TO GILBERT ALVARADO) IN ERHCO3 ABG27.622.0-26.0 mmol/LBase Excess ABG2.5-2.0-2.0 mmol/LOxygen Saturation ABG90.7Allen TestPOSPOSITIVEO2 ModeNASAL CANNULALiters per Filwbj5Yhirkftw SiteLEFT RADIALPerforming Lab:see noteML - [facility] LBUS abdominal aortic aneurysm Reviewed date:01/06/2024 06:36:05 PM Interpretation: Performing Lab: Notes/Report: Source Facility: [facility]-[address] [place] [address] [place] [address] Ultrasound Report Signed Patient: ZACHARY MAYNARD MR#: [id number] : 1945 Acct:[id number] Age/Sex: 78 / F ADM Date: 01/06/24 Loc: US Attending Dr: Dipti Fulton M.D. Ordering Physician: Dipti Fulton M.D. Date of Service: 01/06/24 Procedure(s): US abdominal aortic aneurysm Accession Number(s): [id number] cc: Adina Langley M.D.; Dipti Fulton M.D. [place] [address] Patient Name: ZACHARY MAYNARD MRN: [id number] date: 1945 Sex: F Assigned Patient Location: Current Patient Location: Accession/Order Number: [id number] Exam Date: 01/06/2024 08:00 Report Date: 01/06/2024 [...] Signed By: 01/06/24 1256 DD/ 1253 TD/TT: Data Processing Manager:KE 30 day event monitor Reviewed date:12/28/2023 11:21:17 AM Interpretation: Performing Lab: Notes/Report: Source Facility: [place] [address] Cardiology Report Signed Patient: ZACHARY MAYNARD MR#: [id number] : 1945 Acct:[id number] Age/Sex: 78 / F ADM Date: 11/26/23 Loc: MS 220- Attending Dr: Adina Langley M.D. Ordering Physician: Adina Langley M.D. Date of Service: 11/28/23 Procedure(s): [place] 30 day event monitor Accession Number(s): [id number] cc: Adina Langley M.D. 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 Signed By: 12/26/23 0654 12/26/23 0654 DD/ 0937 TD/TT: Data Processing Manager: [facility] Reviewed date:09/09/2024 05:20:20 PM Interpretation: Performing Lab: Notes/Report: Source Facility: [place] [address] [place] [address] Ultrasound Report Signed Patient: ZACHARY MAYNARD MR#: [id number] : 1945 Acct:[id number] Age/Sex: 79 / F ADM Date: 09/09/24 Loc: US Attending Dr: Adina Langley M.D. Ordering Physician: Adina Langley M.D. Date of Service: 09/09/24 Procedure(s): US right upper quadrant Accession Number(s): [id number] cc: Adina Langley M.D. [place] [id number] Patient Name: ZACHARY MAYNARD MRN: [id number] date: 1945 Sex: F Assigned Patient Location: US Current Patient Location: US Accession/Order Number: [id number] Exam Date: 09/09/2024 11:28 Report Date: 09/09/2024 11:31 At the request of: ADINA LANGLEY MD Procedure: US right upper quadrant LIMITED RIGHT UPPER QUADRANT ABDOMINAL ULTRASOUND CLINICAL HISTORY: Right upper quadrant and epigastric pain since aortic surgery. COMPARISON: 02/25/2024 CT The gallbladder is physiologically distended. Multiple echogenic shadowing gallstones are again seen. Sludge is also possible. No wall thickening or pericholecystic fluid is noted. No intrahepatic biliary dilatation is evident. The common duct is slightly prominent measuring 6 - 7 mm. No intraluminal filling defects are identified in the imaged segment. The liver is normal in echogenicity. No intrahepatic masses are seen. There is appropriate hepatopetal flow within the main portal vein. The pancreas shows no significant sonographic abnormality. Cursory evaluation of the right kidney reveals no hydronephrosis or fluid within Vásquez's pouch. US/US right upper quadrant IMPRESSION: CHOLELITHIASIS AND POSSIBLE SLUDGE. BORDERLINE PROMINENT COMMON DUCT, UNDETERMINED ETIOLOGY. Impression dictated by: Sammie Arizmendi M.D. 09/09/2024 11:31 AM Dictation Location: [place] [address] Electronically authenticated by: [id number] Y Date: 09/09/2024 11:31 Dictated By: Sammie Arizmendi M.D. Signed By: 09/09/24 1134 DD/ 1131 TD/TT: Data Processing Manager:CA echo doppler complete Reviewed date:09/08/2024 08:02:24 PM Interpretation: Performing Lab: Notes/Report: Source Facility: [place] [address] Cardiology Report Signed Patient: ZACHARY MAYNARD MR#: [id number] : 1945 Acct:[id number] Age/Sex: 79 / F ADM Date: 09/08/24 Loc: CARD Attending Dr: Adina Langley M.D. Ordering Physician: Adina Langley M.D. Date of Service: 09/08/24 Procedure(s): CA echo doppler complete Accession Number(s): [id number] cc: Adina Langley M.D. Patient Name: ZACHARY MAYNARD MR#: [id number] : 1945 Exam Date: 09/08/2024 Ordering Doctor: DR ADINA LANGLEY . ECHOCARDIOGRAM REPORT PROCEDURE: CA ECHO DOPPLER COMPLETE INDICATIONS: Acute heart failure, shortness of breath COMPARISON: None. DESCRIPTION: COMPLETE ECHOCARDIOGRAM Real-time transthoracic echocardiography with 2D, M-mode, spectral and color flow Doppler performed. QUALITY: Technical quality was good. LEFT VENTRICLE: Normal chamber size. Mildly increased left ventricular wall thickness. LV EF: Global left ventricular systolic function is normal. Visually estimated ejection fraction is 55 to 60%. No obvious wall motion abnormalities. DIASTOLIC: Unable to assess diastolic function. ATRIAL SEPTUM: Inadequately seen. LEFT ATRIUM: Normal chamber size. RIGHT ATRIUM: [...] mitral regurgitation. AORTIC VALVE: Normal trileaflet appearance. Thickened aortic valve. Normal leaflet mobility. No evidence of aortic valve stenosis. No aortic regurgitation. AORTIC ROOT: Normal diameter and appearance. PULMONIC VALVE: Normal thickness and mobility. No stenosis. Trivial regurgitation. PERICARDIUM: Anterior free space; trivial effusion versus fat pad. IVC: Collapses with inspiration. Normal size. CONCLUSION: 1. Global left ventricular systolic function is normal; visually estimated ejection fraction is 55 to 60% 2. Normal right ventricular size and systolic function 3. Mild increased left ventricular wall thickness 4. No significant valvular abnormalities 5. Anterior free space; trivial effusion versus fat pad Adult Echocardiography Procedure Report Left Ventricle LVEDD (3.7 - 5.6 cm): 4.58 cm LVESD (2.2 - 4.0 cm): 3.34 cm LVIVS thickness (0.6 - 1.2 cm): 0.99 cm LVPW thickness (0.5 - 1.0 cm): 1.18 cm e': 0.07 m/s E - e': 11.14 LVOT Max Gradient: 2.88 mm[Hg] LVOT Area (cm2): 0.85 m/s Peak Velocity (LVOT): 0.85 m/s Mean Velocity (LVOT): 0.49 m/s LVOT Diameter 1.95 cm Left Ventricular Ejection Fraction: 64.51 % Left Atrium LA Volume Index (2D A2C): 33.35 ml/m2 Left Atrium Systolic Dimension: 4.21 cm Mitral Valve MV E to A Ratio: 0.79 Mitral Valve A-Wave Peak Velocity: 0.98 m/s Mitral Valve E-Wave Peak Velocity: 0.78 m/s Right Ventricle RV Internal Diastolic Dimension: 3.19 cm Aorta AO Root Diam: 3.12 cm Ascending Ao Diam: 2.72 cm Aortic Valve AoV Area (Peak Master): 2.25 cm2, 2.25 cm2 AoV Area (VTI): 2.28 cm2, 2.28 cm2 Peak Velocity(Antegrade Flow): 1.12 m/s Peak Gradient(Antegrade Flow): 5.03 mm[Hg] Mean Velocity(Antegrade Flow): 0.74 m/s Mean Gradient(Antegrade Flow): 2.56 mm[Hg] Velocity Time Integral: 23.42 cm Tricuspid Valve Peak Velocity (Regurgitant Flow): 1.34 m/s, 1.59 m/s Pulmonic Valve Mean Gradient: 1.09 mm[Hg] Mean Velocity: 0.48 m/s Peak Velocity: 0.75 m/s, 0.75 m/s Peak Gradient: 2.23 mm[Hg], 2.23 mm[Hg] Right Atrium Right Atrium Systolic Pressure: 37.30 ml, 37.30 ml Dictated by: Uziel Khan M.D. on 09/08/2024 at 18:09 Approved by: Uziel Khan M.D. on 09/08/2024 at 18:13 Dictated By: Uziel Khan M.D. Signed By: 09/08/241813 DD/ 12 TD/TT: Data Processing Manager:MRSA Screening Culture Reviewed date:08/25/2024 07:11:59 PM Interpretation: Performing Lab: Notes/Report: [facility] ,MRSA Screening CultureSee Below For Report MRSA Screening Culture MRSA Screening CultureNegative MRSA Screening Culture MRSA Screening CulturePerformed at: [facility] [place] MRSA Screening Culture MRSA Screening [address] [place], [place] [id number] MRSA Screening Culture MRSA Screening CultureLab Director: John Paul Don PhD, Phone: [phone] MRSA Screening Culture Performing Lab:see note LC - [facility] LB SEE REPORT - Digital Camera Technician Id information not found for OBX-specific insurance producer legend Prothrombin Time INR Reviewed date:08/23/2024 09:16:19 PM Interpretation: Performing Lab: Notes/Report: [facility] ,Prothrombin Time10.49.0-11.6 secINR0.98 DESIRED INR: 2.0-3.0 CONDITIONS NOT LISTED BELOW 2.5-3.5 FOR PROSTHETIC HEART VALVE REPLACEMENT 2.5-3.5 RECURRENT THROMBOSIS Performing Lab:see noteML - [facility] LBPTT Reviewed date:08/23/2024 09:16:19 PM Interpretation: Performing Lab: Notes/Report: [facility] ,Partial Thromboplastin Time27.622.3-36.2 secPerforming Lab:see noteML - [facility] LB Reason For Referral Diagnosis 1 Weakness (R53.1) Referral Organization [facility] Referring Provider First Name Enio Referring Provider Last Name Korin Referring Provider Speciality Family Med icine Referred Provider [facility], Physical Therap y Referred Provider Specialty Physical The rapist Referral Priority Routine Medications Medication SIG (Take, Route, Frequency, Duration) Notes Start Date End Date Status predniSONE 20 MG 3 tablets Orally Once a day; Du ration: 5 days 5ActiveAdbry 300 MG/2MLas directed Nvhnhrpgevas52/18/2025Active Memantine HCl ER 21 MGTAKE 1 CAPSULE BY MOUTH EVERY DAY; Duration: 90 daysActive PreserVision AREDS 2ActiveLiothyronine Sodium 5 MCGTAKE 2 TABLETS ON AN EMPTY STOMACH ORALLY ONCE A DAY 30 DAYS; Duration: 90 daysActiveAlbuterol Sulfate HFA 108 (90 Base) MCG/ACTUSE 2 INHALATIONS BY MOUTH 3 TIMES DAILY; Duration: 90 ActiveMeclizine HCl 25 MGTAKE 1-2 TABLETS BY MOUTH THREE TIMES A DAY NEEDED.; Duration: 15ActiveCarvedilol 12.5 MG1 tablet with food Orally Twice a day 5ActiveRepatha SureClick 140 MG/MLas directed Lgwskewbigci09/08/2025 ActiveEliquis 5 MGTAKE 1 TABLET BY MOUTH TWICE A DAY; Duration: 30Active rOPINIRole HCl 0.5 MGTAKE 1 TABLET BY MOUTH 1 TO 3 HOURS BEFORE BEDTIME; Duration: 90ActiveAmoxicillin-Pot Clavulanate 875-125 MG1 tablet Orally every 12 hrs; Duration: 10 days12/15/2024tiveAmiodarone HCl 200 MG1 tablet Orally Once a dayActivePlavix 75 MG1 tablet Orally Once a day08/31/2024tiveOndansetron 4 MG1 tablet on the tongue and allow to dissolve Orally qid15Active Ezetimibe 10 MGTAKE 1 TABLET BY MOUTH DAILY; Duration: 90 daysActiveSpiriva HandiHaler 18 MCG1 capsule by inhaling the contents of the capsule using the HandiHaler device Inhalation Once a gafNPS955ActiveFerrous Sulfate 325 (65 Fe) MG1 tablet Orally BID5Active Immunizations Vaccine Route Administration Date Status Comme nts Flu, Fluad (1452-2795) (50752) 65 yrs+, single-dose syringe IM Intramuscular 12/25/2022 Administered Flu, Fluad (88053) 65 yrs and older, single-dose syringe (9935-1656)IM Cnhdpalrxhsdw65/14/2024AdministeredFlu, Fluad (35895) 65 yrs and older, single- dose syringe (5676-1099)IM Hhrmorhhvwmsy45/22/2025Administered Social History Tobacco Use: Social History Observation Description Date Details (start date - stop date) Former Smoker NA - 02/24/2010 Tobacco Use/Smoking Question Answer Notes Patient is a former smoker When did you stop smoking?02/24/2010lcohol Screen (Audit-C) Question Answer Notes Did you have a drink containing alcohol in the p ast year? No Fdvsyx7PjbhikkumlvudbYbtdypmvQOTJW-O (Standard) Question Answer Notes Did you have a drink containing alcohol in the p ast year? No Cvvgsm4IveramwohvnkneJfezodnz Problems Problem Type SNOMED Code ICD Code Onset Dates Problem Status W/U Status Risk Notes Problem Information temporarily unavaila ble Essential (primary) hypertension (I10) ActiveconfirmedProblemInformation temporarily unavailableSyncope and collapse (R55)ActiveconfirmedProblemInformation temporarily unavailableTinea corporis (B35.4)ActiveconfirmedProblemInformation temporarily unavailableBenign neoplasm of meninges, unspecified (D32.9)ActiveconfirmedProblemInformation temporarily unavailableType 2 diabetes mellitus with diabetic neuropathy, unspecified (E11.40)ActiveconfirmedProblemInformation temporarily unavailable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)ActiveconfirmedProblemInformation temporarily unavailable Blepharochalasis unspecified eye, 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)Activeconfirmed ProblemInformation temporarily unavailableVentricular fibrillation (I49.01) ActiveconfirmedProblemInformation temporarily unavailableUnspecified asthma, uncomplicated (J45.909)ActiveconfirmedProblemInformation temporarily unavailable Diverticulosis of intestine, part unspecified, without perforation or abscess without bleeding (K57.90)ActiveconfirmedProblemInformation temporarily unavailableConstipation, unspecified (K59.00)ActiveconfirmedProblemInformation temporarily unavailableDyshidrosis [pompholyx] (L30.1)ActiveconfirmedProblem Information temporarily unavailablePain in right shoulder (M25.511)Active confirmedProblemInformation temporarily unavailablePolymyalgia rheumatica (M35.3)ActiveconfirmedProblemInformation temporarily unavailableMuscle weakness (generalized) (M62.81)ActiveconfirmedProblemInformation temporarily unavailable Fibromyalgia (M79.7)ActiveconfirmedProblemInformation temporarily unavailable Other specified disorders of bone density and structure, unspecified site (M85.80)ActiveconfirmedProblemInformation temporarily unavailableArteriovenous malformation, site unspecified (Q27.30)ActiveconfirmedProblemInformation temporarily unavailableCramp and spasm (R25.2)ActiveconfirmedProblemInformation temporarily unavailableFrequency of micturition (R35.0)ActiveconfirmedProblem Information temporarily unavailableLocalized edema (R60.0)ActiveconfirmedProblem Information temporarily unavailableOther injury of muscle, fascia and tendon of lower back, initial encounter (S39.092A)ActiveconfirmedProblemInformation temporarily unavailableAsymptomatic menopausal state (Z78.0)Activeconfirmed ProblemInformation temporarily unavailableAtrial fibrillation (I48.91)Active confirmedProblemInformation temporarily unavailableOsteoarthritis (M19.90)Active confirmedProblemInformation temporarily unavailableAsthma (J45.909)Active confirmedProblemInformation temporarily unavailableGERD (gastroesophageal reflux disease) (K21.9)ActiveconfirmedProblemInformation temporarily unavailableAfib (I48.91)ActiveconfirmedProblemInformation temporarily unavailableHypothyroid (E03.9)ActiveconfirmedProblemInformation temporarily unavailableArterio-venous malformation (Q27.30)ActiveconfirmedProblemInformation temporarily unavailable Osteopenia (M85.80)ActiveconfirmedProblemInformation temporarily unavailable Dyspnea (R06.00)ActiveconfirmedProblemInformation temporarily unavailableVertigo (R42)ActiveconfirmedProblemInformation temporarily unavailableEczema (L30.9) ActiveconfirmedProblemInformation temporarily unavailableSinus tachycardia (R00.0)ActiveconfirmedProblemInformation temporarily unavailableKnee pain, right (M25.561)ActiveconfirmedProblemInformation temporarily unavailableEdema leg (R60.0)ActiveconfirmedProblemInformation temporarily unavailableAcute bronchitis (J20.9)ActiveconfirmedProblemInformation temporarily unavailableVaricose veins (I86.8)ActiveconfirmedProblemInformation temporarily unavailableHypoglycemia (E16.2)ActiveconfirmedProblemInformation temporarily unavailableDiverticulitis (K57.92)ActiveconfirmedProblemInformation temporarily unavailablePlantar fasciitis (M72.2)ActiveconfirmedProblemInformation temporarily unavailable Meningioma (D32.9)ActiveconfirmedProblemInformation temporarily unavailableNear syncope (R55)ActiveconfirmedProblemInformation temporarily unavailableGallstones (K80.20)ActiveconfirmedProblemInformation temporarily unavailableRight upper quadrant abdominal pain (R10.11)ActiveconfirmedProblemInformation temporarily unavailableGastroenteritis (K52.9)ActiveconfirmedProblemInformation temporarily unavailableEasy bruisability (R23.8)ActiveconfirmedProblemInformation temporarily unavailableOver weight (E66.3)ActiveconfirmedProblemInformation temporarily unavailableDyshidrotic eczema (L30.1)ActiveconfirmedProblem Information temporarily unavailableNevus (D22.9)ActiveconfirmedProblem Information temporarily unavailableCervical strain (S16.1XXA)Activeconfirmed ProblemInformation temporarily unavailableDiverticular disease (K57.90)Active confirmedProblemInformation temporarily unavailableAcute bronchiolitis (J21.9) ActiveconfirmedProblemInformation temporarily unavailableLeg cramp (R25.2)Active confirmedProblemInformation temporarily unavailablePruritic condition (L29.9) ActiveconfirmedProblemInformation temporarily unavailableAdvanced COPD (J44.9) ActiveconfirmedProblemInformation temporarily unavailableAcute cystitis (N30.00) ActiveconfirmedProblemInformation temporarily unavailableAcute UTI (N39.0)Active confirmedProblemInformation temporarily unavailableNeuropathy, diabetic (E11.40) ActiveconfirmedProblemInformation temporarily unavailableAdvanced dementia (F03.90)ActiveconfirmedProblemInformation temporarily unavailableAt risk for falls (Z91.81)ActiveconfirmedProblemInformation temporarily unavailableBenign mammary dysplasia (N60.99)ActiveconfirmedProblemInformation temporarily unavailableAcute heart failure (I50.9)ActiveconfirmedProblemInformation temporarily unavailableBP (high blood pressure) (I10)ActiveconfirmedProblem Information temporarily unavailablePure hypercholesterolemia, unspecified (E78.00)ActiveconfirmedProblemInformation temporarily unavailableDiabetes (E11.9)ActiveconfirmedProblemInformation temporarily unavailableDiabetes mellitus (E11.9)ActiveconfirmedProblemInformation temporarily unavailableChronic kidney disease, stage 3a (N18.31)ActiveconfirmedProblemInformation temporarily unavailableLow back pain, unspecified (M54.50)Activeconfirmed Vital Signs Heart Rate 51 /min 12/15/2024 Irorveiovti01.2 degrees Iouclnrclu08/31/0773Eixdnqne04 %12/15/2024lood pressure lakieegkn29 mm Hg12/15/20246866Lgohpg51 in12/15/2024lood pressure aaodnqba748 mm Hg12/15/20249468Ipyzwi032.4 lbs08/31/2024BMI29.3 kg/m208/31/2024 Procedures Procedure Date Ordered Date Performed Result Body Sit e Echocardiogram 08/16/2024 N/A Encounters Encounter Location Date Provider Diagnosis [address] [address] 03/26/2024 Enio Hoy Diverticulitis K57.[address] [address] 05/28/2024 Enio Hoy Acute bronchiolitis J21.[address] [address] 07/21/2024 Enio Hoy Burning with urinati on R30.0 ; Pain in right shoulder M25.511 and Acute UTI N39.[address] [address] 08/16/2024 Enio Hoy UTI (urinary tract infection) N39.0 ; Advanced dementia F03.90 ; Chronic kidney disease, stage 3a N18.31 ; Tinea corporis B35.4 and Dyspnea R06.[address] [address] 08/31/2024 Enio Hoy Right upper quadrant abdominal pain R10.11 and Weakness R53.[address] [address] 10/20/2024 Enio Hoy Type 2 diabetes mellitus with diabetic neuropathy, unspecified E11.40 ; Afib I48.91 ; Hypothyroid E03.9 ; Essential (primary) hypertension I10 ; Diabetes E11.9 ; Acute UTI N39.0 and Dysuria R30.0 [facility] [address] [place] [facility] [place] [address] 03/03/2024 Enio Langley Advanced COPD J44.9 ; Acute heart failure I50.9 ; Ventricular fibrillation I49.01 ; Neuropathy, diabetic E11.40 ; Type 2 diabetes mellitus with diabetic neuropathy, unspecified E11.40 ; Atrial fibrillation I48.91 and Afib I48.91 [facility] [address] [place] [facility] [place] [place] [address] 03/08/2024 Enio Langley Essential (primary) hypertension I10 [facility] [address] [place] [address] 01/28/2024 Valerio Wang [facility] [place] [facility] [place] [address] 12/15/2024Doug HoyAcute non-recurrent sinusitis, unspecified location J01.90 ; Nasal congestion R09.81 and Encounter for immunization W[address]Iwtobct[address] [place], [place] [address] [place] [facility] [place] [address]/[facility] [place] [facility] [place] [address] [facility] [place] [facility] [place] [place] [address]/[facility] [place] [facility] [place] [place] [address]/[facility] [place] [facility] [place] [place] [address]/[facility] [place] [facility] [place] [address]Doug [facility] [place] [facility] [place] [address] Enio [facility] [facility] [place] [address]/Doug [facility] [place] [address]/04/2024Doug [facility] [place] [address]/06/2024Doug HoyLeft arm pain M79.602 [facility] [facility] [place] [address] 02Doug HoyLeft wrist pain M25.532[facility] [place] [address]/08/2024Doug [facility] [place] [address]/Doug [facility] [facility] [place] [address]/05/2024 Enio HoyAcute bronchiolitis J21.9[facility] [facility] [place] [address]/Doug [facility] [address] [facility] [place] [address]/01/2025Doug [facility] [facility] [address]/01/2025[facility] [facility] [place] [address]/ Enio HoyHypothyroid E03.9 ; Acute heart failure I50.9 and SOB (shortness of breath) R06.02[facility] [place] [address]/Doug [facility] [place] [address]/Doug [facility] [facility] [place] [address]/Doug [facility] [place] [address]/Doug HoyGallstones K80.20[facility] [place] [address]/Doug [facility] [place] [facility] [place] [place] [address]/03/2024Doug [facility] [place] [address]/Doug [place] [address] [place] [place] [address]/03/2024Doug Hoy Assessments Encounter Date Diagnosis (ICD Code) Assessment Notes Treatment Notes Treatment Clinical Notes Section Notes 03/03/2024 Advanced COPD (ICD-10 - J44.9) 03/08/2024Essential (primary) hypertension (ICD-10 - I10)fatigue an hypotension -near syncope - stiopping /31/2025Diverticulitis (ICD-10 - K57.92) 05/28/2024ute bronchiolitis (ICD-10 - J21.9)07/21/2024urning with urination (ICD-10 - R30.0)07/21/2024Pain in right shoulder (ICD-10 - M25.511)08/16/2024UTI (urinary tract infection) (ICD-10 - N39.0)chekcing urine culer and urnifro weqxmcn3108/16/2024dvanced dementia (ICD-10 - F03.90)memory part pretty stable no argument from gqasmca9008/31/2024Right upper quadrant abdominal pain (ICD-10 - R10.11)08/31/2024Weakness (ICD-10 - R53.1)10/20/2024Type 2 diabetes mellitus with diabetic neuropathy, unspecified (ICD-10 - E11.40)10/20/2024fib (ICD-10 - I48.91)rate rpqveweev26/05/2025Left arm pain (ICD-10 - M79.602)04/01/2024Left wrist pain (ICD-10 - M25.532)04/04/2025Acute bronchiolitis (ICD-10 - J21.9) 08/16/2024Hypothyroid (ICD-10 - E03.9)08/16/2024ute heart failure (ICD-10 - I50.9)5Acute non-recurrent sinusitis, unspecified location (ICD-10 - J01.90)Rest and drink more liquids, especially water. You may use a humidifier or vaporizer to help keep the drainage moist. Ynis-nbs-tcpaaxj Nasal Saline may help the stuffy and runny nose. Use Ibuprofen and or Tylenol as needed for fever, chills, body aches or pain. Children 5 years old should not be given omcp-yai-rqwwiuo cough and cold medications such as guaifenesin and dextromethorphan. If you're over age 5, you may try irge-mjz-zjbceao cold medications such as guaifenesin and dextromethorphan, [...] if symptoms do not improve within 3-5 days09/09/2024Gallstones (ICD-10 - K80.20)12/15/2024Nasal congestion (ICD-10 - R09.81)08/16/2024SOB (shortness of breath) (ICD-10 - R06.02)10/20/2024 Hypothyroid (ICD-10 - E03.9)ecopuraged to take ,med08/16/2024hronic kidney disease, stage 3a (ICD-10 - N18.31)checing uirn protien and bun creat today 5Acute UTI (ICD-10 - N39.0)5Acute heart failure (ICD-10 - I50.9)seein diimbxfhxno02/08/2025Ventricular fibrillation (ICD-10 - I49.01) 08/16/2024Tinea corporis (ICD-10 - B35.4)xoqardsrmthy28/27/2025Essential (primary) hypertension (ICD-10 - I10)up - adjusting meds1Encounter for immunization (ICD-10 - Z23)10/20/2024Diabetes (ICD-10 - E11.9)bgtwyiq2703/03/2024 Neuropathy, diabetic (ICD-10 - E11.40)03/03/2024Type 2 diabetes mellitus with diabetic neuropathy, unspecified (ICD-10 - E11.40)08/16/2024Dyspnea (ICD-10 - R06.00)10/20/2024ute UTI (ICD-10 - N39.0)10/20/2024Dysuria (ICD-10 - R30.0) 03/03/2024trial fibrillation (ICD-10 - I48.91)Dr Weaver03/03/2024fib (ICD-10 - I48.91) Plan Of Treatment Pending Test Test Name Order Date X ray : Wrist, left 04/01/2024 CMP (COMPLETE METABOLIC PANEL) HEMOGLOBIN A1C (GLYCO) 11/19/2023 IRON, TOTAL 11/19/2023 LIPID PANEL (CHOL/TRIG/HDL/LDL) 11/19/19 24 CBC WITH DIFF 11/19/2023 VITAMIN D, 25 LEVEL (TOTAL) 11/19/2023 Echocardiogram 11/27/2023 Echocardiogram 08/16/2024 CARDIO Echocardiogram 11/19/2023 Urinalysis Microscopic 08/16/2024 RANDOM URINE PROTEIN 08/16/2024 UA (URINALYSIS), COMPLETE (95756) - IN O FFICE 08/30/2022 GLUCOSE - IN OFFICE FINGERSTICK w/MONITO R 12/04/2023 STOOL OCCULT BLOOD 11/19/2023 BLEEDING TIME 10/25/2022 CBC AUTO DIFF 10/16/2022 CULTURE SPUTUM 11/21/2023 CULTURE URINE 08/16/2024 FERRITIN 10/16/2022 GLYCOHEMOGLOBIN A1C 10/16/2022 IRON 10/16/2022 PROF 14(COMP METB) 10/25/2022 PROTIME 10/25/2022 PTT 10/25/2022 SPUTUM GRAM STAIN 11/21/2023 THYROID PROFILE WITH TSH 10/16/2022 US ABD 08/31/2024 US VENOUS DOPPLER L ARM 03/31/2024 XR CHEST 2 V 08/16/2024 XR RIBS BIL_PA CH 4V OR GR 09/02/2022 THYROID PANEL (T4/TSH/FREE T3) 5 THYROID PANEL (T4/TSH/FREE T3) 4 THYROID PANEL (T4/TSH/FREE T3) 5 Holter Monitor - 3 days up to 14 days KORY Segmental Pressure Study of Lower Ex tremity 11/25/2023 *CARDIO Stress Test - Lexiscan Nuclear 1 NUC MED Hida with Ejection Fraction * HIDA w/EF 09/09/2024 Insurance Providers Payer Name Payer Address Payer Phone Subscriber Number Group Number Insured Name Patient Relationship to Insured Coverage Start Date Coverage End Date [employer] [address] [address] [place], [place] [id number] Zachary Maynard Self - patient is the insured 3 [employer] [address]ARE[address] [address] [place], [place] [phone] [id number], GrettaSelf - patient is the insured Medications Administered Medication Instructions Date of Administration Dosage Notes Dexamethasone, 4mg/mL mg8 mgDexamethasone, 4mg/mL mg8 mgDexamethasone, 4mg/mL mgDexamethasone, 4mg/mL mgKenalog-4000 mg80 mg Kenalog-40020 is808Diubxot-8022/23/083273 xg88Hcrjtymes Tromethamine 0 hf56Bwtejuqaemdsy 40 mg/ml0 mg Medical (General) History Medical History History [...] Diverticular disease K57.90 Surgical History Surgery Date(Month/Year) Aorta Patch- stents to kidney and bowel Cardiac cath 12/17 Bilateral Foot Surgery Breast Cyst removedHysterectomyRight Long Finger and ring finger04/2023 Hospitalization History Reason Date(Month/Year) A-fib 12/17 [facility] 2024 sepsis 2019 Aorta Patch 01/2024
--- NOTE | 2024-12-17 11:00 | ECG_ITS ---
[facility] Test Date: 2024-12-17 Pat Name: ZACHARY MANYARD Department: Room: - Gender: Female Medical Center Director: : 1945 Requested By: ADINA BUNCH Order Number: [id number] Reading MD: SCHUYLER ROBLERO M.D. Measurements Intervals [place] Rate: 51 P: 37 MO: 152 QRS: 34 QRSD: 88 T: 42 QT: 474 QTc: 450 Interpretive Statements 1100 Sinus rhythm 9110 normal ECG Compared to ECG 02/25/2024 18:58:29 Left ventricular hypertrophy no longer present Left-axis deviation no longer present Electronically Signed On 12-17-2024 17:40:14 EDT by SCHUYLER ROBLERO M.D.
--- OUTSIDE RECORDS SUMMARY | 2024-12-17 11:00 | XMS_ITS | CCD ---
Author Organization [facility] Care Team Providers Care Tent Worker Name Role Phone VELASQUEZ BUNCH Unavailable Unavailable DALTON, RACHAEL K Unavailable Unavailable ALTON, BRUCE Unavailable Unavailable ALTNO, BRUCE Unavailable Unavailable Velasquez Bunch Primary Care Provider [phone] JUDIE, GIOVANNA S Admitting Unavailable JUDIE, GIOVANNA S Attending Unavailable VELASQUEZ BUNCH Primary Care Unavailable JAMISON GALO Consulting Unavailable JUDIE, GIOVANNA S Consulting Unavailable ABEL RICHARD Consulting Unavailable CHIRRI, JIMMY Consulting Unavailable KENDRICK, VENITA Consulting Unavailable DEMETER, FLORY H Consulting Unavailable SANTACROCE, MIREILLE Consulting Unavailable MINALY ., DR HOLDEN Admitting Unavailable HOY ., DR HOLDEN Attending Unavailable HOY ., DR HOLDEN Primary Care Unavailable HOY ., DR HOLDEN Consulting Unavailable Zidre Renata Consulting Unavailable HOY ., DR HOLDEN Admitting [...] DR HOLDEN Admitting Unavailable MINALY ., DR HOLDEN Attending Unavailable JULIO C ., DR HOLDEN Primary Care Unavailable MD Velasquez Bunch Primary Care Provider [phone] MD Anju Lees Attending Provider Velasquez Bunch MD Primary Care Provider [phone] CURRY RED Attending Unavailable IVA TA Attending Unavailable Velasquez Bunch Attending Unavailable Velasquez Bunch Primary Care Unavailable Velasquez Bunch Admitting Unavailable HORANI, SCARLETT Attending Unavailable HORANI, SCARLETT Admitting Unavailable MARKER, RYAN J Referring Unavailable HERNANDEZ, KIRSTIE Referring Unavailable HERNANDEZ, KIRSTIE Referring Unavailable NAZZAL, MUNIER Attending Unavailable NAZZAL, MUNIER Admitting Unavailable ALI, AVILA Referring Unavailable NELL, HANI Referring Unavailable HORANI, SCARLETT Attending Unavailable HORANI, SCARLETT Admitting Unavailable NELL, HANI Attending Unavailable HORANI, SCARLETT Admitting Unavailable DIAB, DANIKA Referring Unavailable YAÑEZ, CELENA Referring Unavailable NAZZAL, MUNIER Referring Unavailable NAZZAL, MUNIER Referring Unavailable NAZZAL, MUNIER Referring Unavailable HORANI, SCARLETT Referring Unavailable HORANI, SCARLETT Referring Unavailable MARLEE, ULISSES Referring Unavailable ODILIA, YOUNGSOOK Referring Unavailable GEMA, PEARL Referring Unavailable BEACHUM, ROSA Referring Unavailable GEMA, PEARL Referring Unavailable BEACHUM, ROSA Referring Unavailable NAZZAL, MUNIER Referring Unavailable TRISTAN, DIPTI Attending Unavailable YOVANY MONTALVO Attending Unavailable NAZZAL, DLIER Attending Unavailable CELENA YAÑEZ Attending Unavailable AKRAWI, KITA Attending Unavailable YAÑEZCELENA Attending Unavailable HANNAHCAMERON Attending Unavailable NAZZAL, MUNIER Referring Unavailable ELTAHAWY, EH Attending Unavailable HANNAHCAMERON Attending Unavailable TRISTAN, DIPTI Attending Unavailable TRISTAN, DIPTI Attending Unavailable NAZZAL, MUNIER Referring Unavailable HORANI, SCARLETT Referring Unavailable GEMA, PEARL Referring Unavailable HERNANDEZ, KIRSTIE Referring Unavailable NELL, HANI Referring Unavailable VISHAL THOMAS Referring Unavailable RATNAM, JAZ Referring Unavailable RATNAM, JAZ Referring Unavailable MARCK DICKSON Referring Unavailable RYNE TURNER Referring Unavailable PRINCE, AP Referring Unavailable PRINCE, AP Referring Unavailable YAÑEZ, CELENA Referring Unavailable Allergies Allergy ClassificationReported Allergen(s)Allergy TypeDate of OnsetReaction(s) Facility (7 sources)Adhesive Tape; 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: [Adhesive tape]Propensity to adverse reactions to cujd72-11-9232Bifflec [facility], [facility], [place] (10 sources)CiprofloxacinDrug Wfqrbkr92-47-2344EjsmmceMprtt Health- [place], [place] (1 source)Hmg-Coa Reductase Inhibitors (Statins)Propensity to adverse reactions to ghga73[place]43[place]4115[place] (11 sources)Meperidine; 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: [MEPERIDINE]Drug Csktxhk56-40-5105 [place], [place] (11 sources)moxifloxacin; 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: [MOXIFLOXACIN]Drug Ykwbsqt82-16-3842 Anaphylaxis, [place], [place] (10 sources)NalbuphineDrug Lklwser19-76-4945SqtrueyAxcqm Health- [place], [place] (10 sources)PromethazineDrug Onrjfmu53-32-9524HocdmmkNjeku Health- [place], [place] (1 source)Sulfonamides (Antibiotic)Propensity to adverse reactions to drug 65-63-4013[place]edwg[place], [place] (2 sources)black walnut pollen extractDrug Mmydvjb82-28-6405Prp[facility] (2 sources)CiprofloxacinDrug Ciiwuav85-22-3457Ovh [facility] Repository (2 sources)LevamisoleDrug Vkeckhj35-54-3714Kdq [facility] Repository (2 sources)MeperidineDrug Wbaqqqj36-52-5017ItyMercy Health [facility]. [facility] (2 sources)moxifloxacinDrug Dfewtmv16-09-9203OccMercy Health [facility] (2 sources)NalbuphineDrug Oxicgwn66-28-0219Zcb [facility] Repository (1 source)Sulfonamides (Antibiotic)Drug allergy (disorder)78-19-7030Wtm [facility] Repository (4 sources)Sulfacetamide; 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: [sulfacetamide]Drug Kqxognu61-72-7561 Unknown Reaction, [facility] (4 sources)Sulfur; 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: [sulfur]Drug Vukwjvu07-16-3048VfzdzkmOhioHealth [facility] (4 sources)Srqxiij-UQY-CbJ Reductase Inhibitor; 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: [Zanqeqg-BND-SaV Reductase Inhibitor]Allergy to xgzltmcsu50-87-9173EosqkpzMemorial Health System [facility] (6 sources)atorvastatinDrug Nhyumfm78-83-1455JckacjyAWGH Healthcare Work Phone: (6 sources)cefdinirDrug Knubbfo52-24-4863NdagvpgBYRX Healthcare (6 sources)HMG-CoA reductase inhibitorDrug Gcyqaul66-35-5286CdgouqsXVBH Healthcare (6 sources)MeperidineDrug Izmzpop00-07-3915PsokohjNCEM Healthcare (6 sources)PromethazineDrug Nticnjh17-58-0936DEAV [facility] (6 sources)Sulfonamides (Antibiotic)Drug Oelnszm12-50-1434KootwhuBEGB Healthcare (6 sources)Wound Dressing AdhesiveDrug Ndbqmls95-08-7512HbykprzQIGB Healthcare (1 source)CiprofloxacinDrug Wnbadyn32-88-4222MsfpygjcpHarrison Community Hospital Repository (1 source)MeperidineDrug Kgzbvoq09-33-7821TyzyhkieiHarrison Community Hospital Repository (1 source)moxifloxacinDrug Zuawcpl70-31-0188CxrymahidHarrison Community Hospital Repository (1 source)NalbuphineDrug Usirzmt60-91-5792EyvfyuvmkHarrison Community Hospital Repository (1 source)PromethazineDrug Ncsuqwm73-06-4210FpznsxflhHarrison Community Hospital Repository Medications Current Medications MedicationDrug Class(es)DatesSig (Normalized)Sig (Original)acetaminophen 500 mg oral tablet (2 sources)Start: 63-93-6594jggl 2 tablets by mouth every six hoursAcetaminophen (Acetaminophen Extra Strength) 500 mg tablet Active 1000 MG PO Every 6 hours 2023 12:00amStart: 19-85-5974twfroyiazuqzc (TYLENOL) tablet 650 mg acetaminophen 325 mg / butalbital 50 mg / caffeine 40 mg oral tablet (1 source)Barbiturate, Central Nervous System Stimulant, MethylxanthineStart: 60-72-6444seyujldptv-acetaminophen-caffeine (FIORICET, ESGIC) per tablet 1 mahhlvfpw935780 200 actuat albuterol 0.09 mg/actuat metered dose inhaler (3 sources)beta2-Adrenergic AgonistStart: 80-05-2389usbn 1 puff(s) by inhalation twice dailyAlbuterol Sulfate Active 2 PUFF INHALATION Twice daily April 08, 2023 12:00amStart: 59-32-4748Ivxkjzrjk Sulfate Active INHALATION April 08, 2023 12:00amalbuterol 0.833 mg/ml / ipratropium bromide 0.167 mg/ml inhalant solution (2 sources)Anticholinergic, beta2-Adrenergic AgonistStart: 10-11-2019 ipratropium-albuterol (DUONEB) nebulizer solution 1 ampuleStart: 10-09-2019 End: ampule, Inhalation, EVERY 4 HOURS WHILE AWAKE, First dose on 10/09/19 at 1600amiodarone hydrochloride 200 mg oral tablet (5 sources)AntiarrhythmicStart: 68-91-7635mhzg 2 tablets by mouth twice daily, then take 1 tablet by mouth in the morningamiodarone (Pacerone) 200 MG tablet TAKE 2 TABLETS BY MOUTH TWO TIMES DAILY FOR 14 DAYS, THEN TAKE 1 TABLET IN THE MORNING. 01/09/2024 Activeamitriptyline hydrochloride 10 mg oral tablet (6 sources)Tricyclic Antidepressantamitriptyline (Elavil) 10 MG tablet Take by mouth at bedtime. ActiveamLODIPine 10 mg oral tablet (5 sources)Dihydropyridine Calcium Channel BlockerStart: 06-29-2017 End: 03-27-7593iwnf 1 tablet by mouth once dailyamLODIPine (NORVASC) 10 MG tablet Take 1 tablet by mouth daily 30 tablet 3 10/15/2019 Activeapixaban 5 mg oral tablet (5 sources)Factor Xa Inhibitortake 1 tablet by mouth every twelve hoursEliquis 5 MG tablet 5 mg every 12 (twelve) hours Activeaspirin 81 mg chewable tablet (2 sources)Platelet Aggregation Inhibitor, Nonsteroidal Anti-inflammatory Drug Start: 59-01-1396gzoa 1 tablet by mouth once dailyaspirin 81 MG chewable tablet Take 1 tablet by mouth daily 30 tablet 3 10/16/2019 Activeaugmented betamethasone 0.5 mg/ml topical cream (6 sources)Corticosteroidbetamethasone, augmented, (Diprolene AF) 0.05 % cream Indications: Atopic Dermatitis Apply 1 application topically in the morning and 1 application before bedtime. Activebisacodyl 10 mg rectal suppository (1 source)Stimulant LaxativeStart: 13-30-1635xskyhvrgs (DULCOLAX) suppository 10 mgcalcium chloride 0.0014 meq/ml / potassium chloride 0.004 meq/ml / sodium chloride 0.103 meq/ml / sodium lactate 0.028 meq/ml injectable solution (1 source)Start: 11-93-9279ylabqokl ringers infusiondiclofenac sodium 75 mg delayed release oral tablet (3 sources)Nonsteroidal Anti-inflammatory DrugStart: 70-24-1510Rfwolhsniv Sodium Active 75 MG PO .prn April 08, 2023 12:00amdocusate sodium 100 mg oral capsule (2 sources)Start: 10-17-2019 End: 35-58-8327qjwr 2 capsules by mouth once dailydocusate sodium (COLACE) 100 MG capsule Take 2 capsules by mouth daily 60 capsule 1 10/17/2019 11/17/2019 ActiveStart: 91-22-5988iugtcgml sodium (COLACE) capsule 200 mg2 ml dupilumab 150 mg/ml auto-injector (3 sources)Interleukin-4 Receptor alpha AntagonistStart: 01-14-2023 End: 85-13-5841Vbnpxfjk 300 MG/2ML injection Indications: Other atopic dermatitis Inject 2 mL (300 mg) under the skin every 14 (fourteen) days. 4 mL 11 01/14/2023 01/16/2024 Discontinued (Side effects)empagliflozin 10 mg oral tablet (7 sources)Sodium-Glucose Cotransporter 2 InhibitorStart: 56-26-0407xcxi 1 tablet by mouth once dailyEmpagliflozin (Jardiance) 10 mg tablet Active 10 MG PO Daily April 17, 2023 12:00am if FSBS >2000.4 ml enoxaparin sodium 100 mg/ml prefilled syringe (1 source)Low Molecular Weight HeparinStart: 56-92-3394lgfpab 40 mg by subcutaneous injection once daily40 mg, Subcutaneous, DAILY, First dose on 10/09/19 at 1245ezetimibe 10 mg oral tablet (11 sources)Dietary Cholesterol Absorption InhibitorStart: 99-42-1894asby 1 tablet by mouth once daily at bedtimeEzetimibe (Zetia) 10 mg tablet Active 10 MG PO Daily at bedtime April 08, 2023 12:00amfexofenadine hydrochloride 180 mg oral tablet (5 sources)Histamine-1 Receptor AntagonistStart: 01-16-2024 End: 20-96-1442wozk 1 tablet by mouth once dailyfexofenadine (Brenda) 180 MG tablet Indications: Other atopic dermatitis Take 1 tablet daily, by mouth, 30 days 30 tablet 11 01/16/2024 05/21/2024 Discontinuedfurosemide 20 mg oral tablet (9 sources)Loop DiureticStart: 82-80-7018ezlv 20 mg by mouth once daily Furosemide Active 20 MG PO Daily April 08, 2023 12:00amfurosemide (Lasix) 8 MG/ML solution Take by mouth Daily. Activeglucagon (rdna) 1 mg injection (1 source)Antihypoglycemic AgentStart: 51-46-1802kubpwlce (rDNA) injection 1 mg 150 ml glucose 50 mg/ml injection (3 sources)Start: 69-77-3658purbqrmg 5 % solutionStart: 55-06-3846ighljeh (GLUTOSE) 40 % oral gel 15 gStart: 72-51-4608zjfsqzeo 50 % IV solution hydrALAZINE hydrochloride 100 mg oral tablet (3 sources)Arteriolar VasodilatorStart: 49-53-3619uujl 1 tablet by mouth every eight hourshydrALAZINE (APRESOLINE) 100 MG tablet Take 1 tablet by mouth every 8 hours 90 tablet 3 10/15/2019 ActiveStart: 85-66-7551ogtsYSMDVBQ (APRESOLINE) tablet 100 mgStart: 67-09-1277cyghFWOUKIN (APRESOLINE) injection 10 mg hydroCHLOROthiazide 25 mg oral tablet (9 sources)Thiazide DiureticStart: 31-55-1256gvbt 25 mg by mouth once daily in the morningHydrochlorothiazide Active 25 MG PO Every morning April 08, 2023 12:00amtake 2 tablets by mouth in the morninghydroCHLOROthiazide (HYDRODiuril) 12.5 MG tablet Take 25 mg by mouth in the morning. ActivehydrOXYzine hydrochloride 25 mg oral tablet (10 sources)AntihistamineStart: 01-16-2024 End: 75-38-8666xvei 1 tablet by mouth every 30 days as neededhydrOXYzine HCl (Atarax) 25 MG tablet Indications: Other atopic dermatitis Take 1 tablet, by mouth,as needed for itching at bedtime, 30 day supply. 30 tablet 11 01/16/2024 05/21/2024 DiscontinuedStart: 83-05-8848rnet 1 tablet by mouth four times daily as neededhydrOXYzine HCl (Atarax) 25 MG tablet TAKE 1 TABLET BY MOUTH 4 TIMES A DAY NEEDED FOR 10 DAYS 11/13/2023 Activeinsulin lispro 100 unt/ml injectable solution (2 sources)Insulin AnalogStart: 14-54-6100ayjbjms lispro (HUMALOG) injection vial 0-3 Units24 hr isosorbide mononitrate 30 mg extended release oral tablet (5 sources)Nitrate Vasodilatortake 1 tablet by mouth in the morning, then take 1 tablet by mouth every twenty-four hoursisosorbide mononitrate ER (Imdur) 30 MG 24 hr tablet Take 30 mg by mouth in the morning. Active1 ml ketorolac tromethamine 15 mg/ml cartridge (3 sources)Nonsteroidal Anti-inflammatory Drug, Cyclooxygenase InhibitorStart: 10-15-2019 End: 94-00-1828wgcqkzgwe (TORADOL) injection 15 mgStart: 10-09-2019 End: 65-24-4880gxotmydll (TORADOL) injection 15 mglabetalol (NORMODYNE;TRANDATE) injection syringe 10 mg (1 source)Start: 51-83-5272lypgkusog (NORMODYNE;TRANDATE) injection syringe 10 mglisinopril 40 mg oral tablet (4 sources)Angiotensin Converting Enzyme InhibitorStart: 30-68-1977ivyx 1 tablet by mouth once dailylisinopril (PRINIVIL;ZESTRIL) 40 MG tablet Take 1 tablet by mouth daily 30 tablet 3 10/16/2019 ActiveStart: 21-49-1515oexkeagjal (PRINIVIL;ZESTRIL) tablet 40 mgStart: 10-10-2019 End: 29-29-0465kdkirvmzzl (PRINIVIL;ZESTRIL) tablet 20 mgmeclizine hydrochloride 25 mg oral tablet (13 sources)AntiemeticStart: 58-51-6773yuso 25 mg by mouth once dailyMeclizine Active 25 MG PO Daily April 08, 2023 12:00amStart: 10-15-2019 End: 25-37-4326afyyegdck (ANTIVERT) tablet 12.5 mgStart: 10-09-2019 End: 62-70-8774xouxqgcqb (ANTIVERT) tablet 25 mgtake 1 tablet by mouth three times daily as needed for dizzinessmeclizine (Antivert) 25 MG tablet Take 25 mg by mouth 3 (three) times a day as needed for dizziness. Dmkfah00 hr memantine hydrochloride 28 mg extended release oral capsule (9 sources)B-sfowke-S-aspartate Receptor AntagonistStart: 45-26-0799mxwg 28 mg by mouth once daily in the morningMemantine Active 28 MG PO Every morning April 08, 2023 12:00amStart: 70-17-9512Cgvdncgnc Active MG PO April 08, 2023 12:00ammemantine (Namenda Titration Pack) 28 x 5 MG & 21 x 10 MG tablet pack Take by mouth See administration instructions. Follow package directions. Clnuzk39 hr metFORMIN hydrochloride 500 mg extended release oral tablet (9 sources)BiguanideStart: 39-80-1341yvxj 500 mg by mouth twice dailyMetformin Active 500 MG PO Twice daily April 08, 2023 12:00amStart: 04-08-2023 Metformin Active MG PO April 08, 2023 12:00amtake 1 tablet by mouth at mealtime, then take 1 tablet by mouth every twenty-four hoursmetFORMIN, OSM, (Fortamet) 500 MG 24 hr tablet Take 500 mg by mouth in the evening. Take with meals. Do not crush, chew, or split. Activemetoprolol tartrate 100 mg oral tablet (4 sources)beta-Adrenergic BlockerStart: 78-77-4280jpdc 1 tablet by mouth twice dailymetoprolol tartrate (LOPRESSOR) 100 MG tablet Take 1 tablet by mouth 2 times daily 60 tablet 5 10/15/2019 ActiveStart: 46-24-6957veauviftxs tartrate (LOPRESSOR) tablet 100 mgStart: 10-09-2019 End: 47-82-8111pekl 50 mg by mouth twice daily50 mg, Oral, 2 TIMES DAILY, First dose on 10/09/19 at 1245 End: 82-63-6474jisc 2 tablets by mouth twice dailymetoprolol tartrate (LOPRESSOR) 50 MG tablet Take 100 mg by mouth 2 times daily 0 10/15/2019 Discont inued (REORDER)nitroglycerin 0.4 mg sublingual tablet (5 sources)Nitrate Vasodilatornitroglycerin (Nitrostat) 0.[address] 0.4 mg under the tongue ActiveNutritional Supplements (Ensure Active High Protein) liquid (5 sources)Nutritional Supplements (Ensure Active High Protein) liquid Take by mouth Daily Activeondansetron (ZOFRAN-ODT) disintegrating tablet 4 mg (1 source)Start: 77-19-0020aaghuandxcs (ZOFRAN-ODT) disintegrating tablet 4 mg polyethylene glycol 3350 37158 mg powder for oral solution (3 sources)Osmotic LaxativeStart: 10-09-2019 End: 94-31-0078hpht 17 g by mouth once dailypolyethylene glycol (GLYCOLAX) 17 g packet Take 17 g by mouth daily 527 g 5 10/16/2019 11/15/2019 ActivePotassium (6 sources)Potassium (POTASSIMIN PO) Take by mouth. ActivePotassium Chloride (2 sources)Start: 81-40-0685shvnirohv chloride (KLOR-CON M) extended release tablet 40 mEqStart: 52-80-2967nirf 10 mL intravenous route every hour as needed 10 mEq, Intravenous, at 100 mL/hr, PRN, Potassium Replacement, Starting 10/09/19 at 1227 K Lab Replacement Action 3.1- 3.5 10 mEq IVPB x 4 doses (40 mEq Total) 2.7-3.0 10 mEq IVPB x 6 doses (60 mEq Total) < 2.7 &nbs p; CALL PHYSICIAN and 10 mEq IVPB x 6 doses (60 mEq Total) Infuse at 10 mEq/hr. Repeat Potassium lab 1 hour after final administration. Not for use in patients with CrCl less than 30 mL/min.pramipexole dihydrochloride 0.125 mg oral tablet (6 sources)Nonergot Dopamine Agonisttake 1 tablet by mouth in the morning, then take 1 tablet by mouth in the evening, then take 1 tablet by mouth at bedtime pramipexole (Mirapex) 0.125 MG tablet Take 0.125 mg by mouth in the morning and 0.125 mg in the evening and 0.125 mg before bedtime. ActiverOPINIRole 0.5 mg oral tablet (5 sources)Nonergot Dopamine Agonisttake 1 tablet by mouth at bedtimerOPINIRole (Requip) 0.5 MG tablet TAKE 1 TABLET BY MOUTH 1 TO 3 HOURS BEFORE BEDTIME Active 3 ml sodium chloride 9 mg/ml injection (4 sources)Start: 12-37-8846lpkeki chloride flush 0.9 % injection 10 mLStart: 10-11-2019 End: 86-21-4972xxaerv chloride flush 0.9 % injection 10 mLStart: 60-02-223310 mL, Intravenous, EVERY 12 HOURS SCHEDULED (2 times per day), First dose on 10/09/19 at 2100Start: 64-78-5756koru 10 mL intravenous route once as bbymvn12 mL, Intravenous, PRN, Line Care, After every IV line use, Starting 10/09/19 at 1227spironolactone 100 mg oral tablet (4 sources)Aldosterone AntagonistStart: 40-50-8602vycw 1 tablet by mouth once dailyspironolactone (ALDACTONE) 100 MG tablet Take 1 tablet by mouth daily 30 tablet 3 10/16/2019 ActiveStart: 10-09-2019 End: 23-82-7840rzodwkeybopwfz (ALDACTONE) tablet 50 mgtiotropium 0.018 mg inhalation powder (5 sources)Anticholinergictake 1 capsule by inhalation once dailySpiriva HandiHaler 18 MCG inhalation capsule inhale 1 capsule by inhalation route every day Inhalation Activetriamcinolone acetonide 1 mg/ml topical cream (5 sources)CorticosteroidStart: 56-59-3166wjvkxddrhnvdp (Kenalog) 0.1 % cream Indications: Other atopic dermatitis Apply to affected areas, up to twice a day when flared, do not use one the face, groin, or underarms, 30 day supply 454 g 11 01/16/2024 ActiveVit C,P-Cb-Gihjk-Lutein-Zeaxan (Preservision Areds-2) 250-90-40-1 mg capsule (1 source)Start: 18-96-4181Hhs C,G-Vg-Kfdyx-Lutein-Zeaxan (Preservision Areds-2) 250-90-40-1 mg capsule Active 1 TAB PO Twice daily April 17, 2023 12:00am Completed/Discontinued Medications MedicationDrug Class(es)DatesSig (Normalized)Sig (Original)cloNIDine hydrochloride 0.1 mg oral tablet (2 sources)Central alpha-2 Adrenergic AgonistStart: 10-10-2019 End: 62-76-4975yucBEBuln (CATAPRES) tablet 0.1 mgDupilumab (3 sources)Start: 04-08-2023 End: 57-22-5709Hurfibqap (Dupixent Pen) 200 mg/1.14 mL pen injector Discontinued 200 MG SUBCUT EVERY 2 WEEKS April 08, 2023 12:00am April 17, 2023 12:56pmStart: 17-71-0405Atgbsybdd (Dupixent Pen) 200 mg/1.14 mL pen injector Active 200 MG SUBCUT EVERY 2 WEEKS April 08, 2023 12:00am2 ml fentaNYL 0.05 mg/ml injection (1 source)Opioid AgonistStart: 10-09-2019 End: 55-03-6226ajfbcZFE (SUBLIMAZE) injection 50 mcgfluconazole 200 mg oral tablet (1 source)Azole AntifungalStart: 10-16-2019 End: 22-01-8067trkfjdqeswf (DIFLUCAN) tablet 200 mggadoteridol (PROHANCE) injection 12 mL (1 source)Start: 10-15-2019 End: 32-51-1441jnwhfldiyzw (PROHANCE) injection 12 mLgadoteridol (PROHANCE) injection 13 mL (1 source)Start: 10-11-2019 End: 14-80-1331hejjbdtrfey (PROHANCE) injection 13 mL1 ml haloperidol 5 mg/ml injection (1 source)Typical AntipsychoticStart: 10-09-2019 End: 56-33-6832qqjowohmxgc lactate (HALDOL) injection 5 mgStart: 10-09-2019 End: 32-89-1398btnbshaowjb lactate (HALDOL) injection 5 mgIohexol (2 sources)Radiographic Contrast AgentStart: 10-10-2019 End: 03-75-2337vlnnada (OMNIPAQUE 350) solution 90 mLStart: 10-09-2019 End: 55-01-2770onwlckj (OMNIPAQUE 350) solution 75 mLirbesartan 300 mg oral tablet (1 source)Angiotensin 2 Receptor Dodie End: 19-75-7120asrq 1 tablet by mouth once dailyirbesartan (AVAPRO) 300 MG tablet Take 300 mg by mouth daily 0 10/09/2019 Discontinued (LIST CLEANUP) LORazepam 2 mg oral tablet (1 source)BenzodiazepineStart: 10-11-2019 End: 55-03-1835GPVvptfmt (ATIVAN) tablet 2 mg100 ml magnesium sulfate 10 mg/ml injection (1 source)Start: 10-10-2019 End: 72-09-9402smktcukhu sulfate 1 g in dextrose 5% 100 mL IVPB methylPREDNISolone 125 mg injection (1 source)CorticosteroidStart: 10-10-2019 End: 61-00-4283lvqdekLDCFMTXdvjtr sodium (SOLU-MEDROL) injection 250 mg2 ml metoclopramide 5 mg/ml prefilled syringe (1 source)Dopamine-2 Receptor AntagonistStart: 10-10-2019 End: 60-38-4974ujkmkzcshmdnlr (REGLAN) injection 10 mgniCARdipine (CARDENE) 25 mg in dextrose 5 % 250 mL infusion (1 source)Start: 10-09-2019 End: 65-55-4278xkPZYnrcrhu (CARDENE) 25 mg in dextrose 5 % 250 mL infusion2 ml ondansetron 2 mg/ml injection (2 sources)Serotonin-3 Receptor AntagonistStart: 10-09-2019 End: 83-69-5097uclnmgdcimb (ZOFRAN) injection 4 mgStart: 10-09-2019 End: 57-10-1441ledcwnycxuf (ZOFRAN) 4 MG/2ML injectionpotassium bicarbonate 20 meq effervescent oral tablet (1 source)Start: 10-12-2019 End: 56-59-2828suedqhmih bicarb-citric acid (EFFER-K) effervescent tablet 40 mEq valproate (DEPACON) 500 mg in dextrose 5 % 100 mL IVPB (1 source)Start: 10-13-2019 End: 31-75-0653emjekubqo (DEPACON) 500 mg in dextrose 5 % 100 mL IVPB Problems Active Problems Problem ClassificationProblemDateDocumented DateEpisodic/ChronicAllergic reactions (4 sources)Atopic dermatitis; 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: [Other atopic dermatitis]01-16-2024 ChronicAortic; peripheral; and visceral artery aneurysms (3 sources)Abdominal aortic aneurysm without rupture; 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: [Aneurysm of infrarenal abdominal aorta ]Onset: 626982-33-0481KyxbcvwXjbtfzm tract disease (2 sources)Calculus of gallbladder without cholecystitis without obstruction; 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: [Calculus of gallbladder without cholecystitis without obstruction]Onset: 34-98-9962FlvcgtuyOufbkwi dysrhythmias (2 sources)Paroxysmal atrial fibrillation; 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: [Paroxysmal atrial fibrillation]Onset: 31-34-0655MgedlotIrfishppwz associated with dizziness or vertigo (6 sources)Dizziness and giddiness; 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: [Vertigo]Onset: 06-27-2017 EpisodicCongestive heart failure; nonhypertensive (6 sources)Chronic diastolic (congestive) heart failure; 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: [Acute combined systolic (congestive) and diastolic (congestive) heart failure]Onset: 30-96-5148OnxchqdWnhqhaqs atherosclerosis and other heart disease (4 sources)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; 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: [Unstable angina]Onset: 22-67-1159YjhodwyNmwqvlvk mellitus without complication (5 sources)Diabetes mellitus; 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: [Type 2 diabetes mellitus without complications]Onset: 476773-85-9546NnbslbrOhkzegtez of lipid metabolism (8 sources)Hyperlipidemia; 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: [Hyperlipidemia, unspecified]Onset: 973198-04-5568JwybrsxVzlwycuvc hypertension (3 sources)Hypertensive disorder; 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: [Essential (primary) hypertension]15-83-4962NzvolhwBqfbi and electrolyte disorders (2 sources)Hypokalemia; 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: [Hypokalemia]Onset: EpisodicHeadache; including migraine (2 sources)Headache; 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: [Acute intractable headache]10-10-2019 EpisodicHypertension with complications and secondary hypertension (8 sources)Hypertensive urgency ; 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: [Secondary hypertension]Onset: 970859-94-3438PjmvmxoTxnzpr and vomiting (1 source)Nausea and vomiting; 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: [Nausea and vomiting, intractability of vomiting not specified, unspecified vomiting type]Episodic Nutritional deficiencies (2 sources)Malnutrition (calorie); 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: [Moderate malnutrition (HCC)] Onset: 849319-87-6938WmipuddDipvk aftercare (2 sources)Taking high risk medication; 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: [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]96-72-5553OkuatozpOtnrn circulatory disease (2 sources)Celiac artery compression syndrome; 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: [Celiac artery compression syndrome]Onset: 77-20-2450UzenipjEzaiu connective tissue disease (3 sources)Hand pain; 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: [Pain in right hand]08-80-5174ByjtlnomXmplf connective tissue disease (6 sources)Triggering of digit; 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: [Trigger finger, right middle finger]22-75-5660TukwwafwOqhee connective tissue disease (3 sources)Trigger finger, right middle finger; 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: [Trigger finger (acquired)]16-28-0818NazbftltPcuon connective tissue disease (3 sources)Trigger finger, right ring finger; 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: [Trigger finger (acquired)]76-49-4818BxqrlmfoPbmlqacmbu and visceral atherosclerosis (2 sources)Chronic vascular disorders of intestine; 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: [Chronic vascular disorders of intestine]Onset: 75-24-4932JeihjvjWxoqnxbxsg and visceral atherosclerosis (2 sources)Stenosis of right renal artery; 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: [Right renal artery stenosis (HCC)]Onset: 430526-51-9814Mzlmkkcfest; intervertebral disc disorders; other back problems (1 source)Acute low back pain; 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: [Acute low back pain, unspecified back pain laterality, unspecified whether sciatica present]EpisodicSyncope (4 sources)Syncope and collapse; 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: [SYNCOPE AND COLLAPSE]Onset: 81-12-7972JtxubsyaBgwmkuekbyju (1 source)Hypertensive urgency; 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: [Hypertensive urgency]Onset: 73-66-7725Llfrpzvrzrng (3 sources)COUGH, UNSPECIFIED; 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: [COUGH, UNSPECIFIED]Onset: 57-80-1543Nhgtouweqnbm (1 source)CONTACT W/AND (SUSP) EXPOS COVID-19; 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: [CONTACT W/AND (SUSP) EXPOS COVID-19]Onset: 56-98-9299Sgyopkjmdnen (1 source)Infrarenal abdominal aortic aneurysm, without rupture; 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: [Infrarenal abdominal aortic aneurysm, without rupture]Onset: 01-27-2024 Unclassified (1 source)Other ventricular tachycardia; 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: [Other ventricular tachycardia]Onset: 18-16-1298Afsjauerfyjv (1 source)Ventricular tachycardia, unspecified; 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: [Ventricular tachycardia, unspecified]Onset: 73-02-4867Tvnfsvrzluuv (1 source)Abdominal aortic aneurysm, without rupture, unspecified; 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: [Abdominal aortic aneurysm, without rupture, unspecified]Onset: 01-27-2024 Past or Other Problems Problem ClassificationProblemDateDocumented DateEpisodic/ChronicAcute and unspecified renal failure (2 sources)Acute kidney failure, unspecified; 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: [Acute kidney failure, unspecified]Onset: 52-03-0839ByklwcitTqxjyye dysrhythmias (2 sources)Palpitations; 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: [Palpitations]Onset: EpisodicGenitourinary symptoms and ill-defined conditions (2 sources)Hesitancy of micturition; 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: [Hesitancy of micturition] Onset: 34-06-8508DtggxqpiKpcienr and fatigue (2 sources)Weakness; 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: [Weakness]Onset: 79-68-3441YrstrdxdQixbt aftercare (2 sources)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; 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: [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]Onset: 13-92-2166MgmhnsqzRnyli gastrointestinal disorders (2 sources)Constipation, unspecified; 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: [Constipation, unspecified] Onset: 62-19-6794DzwcgmwzKzaxa lower respiratory disease (2 sources)Other forms of dyspnea; 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: [Other forms of dyspnea]Onset: 24-57-0675BlagwfdcOedzp nervous system disorders (2 sources)Other acute postprocedural pain; 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: [Other acute postprocedural pain]Onset: 78-74-9992SggaiubbHtzrskmqwolj (1 source)COUGH, UNSPECIFIED; 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: [COUGH, UNSPECIFIED]Onset: 61-55-7677Utdsfqlugcmq (1 source)Infrarenal abdominal aortic aneurysm, without rupture; 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: [Infrarenal abdominal aortic aneurysm, without rupture]Onset: 07-22-2024 Unclassified (1 source)Other ventricular tachycardia; 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: [Other ventricular tachycardia]Onset: 21-59-6452Hjyhpnfdwtyo (1 source)Ventricular tachycardia, unspecified; 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: [Ventricular tachycardia, unspecified]Onset: 07-50-2886Vsocfuapkfau (1 source)Abdominal aortic aneurysm, without rupture, unspecified; 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: [Abdominal aortic aneurysm, without rupture, unspecified]Onset: 01-27-2024 Results Test NameValueInterpretationReference QhxdkQbbuopfn55th 03-55-821705LqnzliWestern Reserve Hospital36Spoke with patient and she was currently in the car and not able to check her BP and HR. Asked her to call me back later today when she gets home and checks those. Patient agreed to do so.NormalUnSycamore Medical Center36on 24-15-913492EasyseCwjimorscw [facility]30on 28-70-511194JirhcmMercy Health Kings Mills HospitalBASIC METABOLIC PANELon 60-03-9989Elseu gap [Moles/Vol]11 mmol/LNormal7-20UnSycamore Medical CenterComment on above:Performed By: #### [id number] ####[facility] (AKER)[address] [place], [place] [address]Fjpwhcd [Mass/Vol]8.6 mg/dLNormal8.6-10.3UnSycamore Medical CenterComment on above:Performed By: #### [id number] ####[facility] (BEAKER)[address] [place], [place] [address]Voqfxwua [Moles/Vol]107 mmol/LNormal 98-107UnSycamore Medical CenterComment on above:Performed By: #### [id number] ####[facility] (BEAKER)[address] [place], [place] [address]EH6 [Moles/Vol]26 mmol/QTpqupq28-66EztdbbnfksSycamore Medical CenterComment on above:Performed By: #### [id number] ####[facility] (AKER)[address] [place], [place] [address]Xbnpepdqeo [Mass/Vol]1.28 mg/dLHigh0.60-1.20UnSycamore Medical CenterComment on above:Performed By: #### [id number] ####[facility] ([facility])[address] [place], [place] [address]RHBTYOGJMA FILTRATION RATE ML/MIN/1.73 SQ M.OTHLIPHLN66.1 mL/min/1.73m*2Low>60.0UnSycamore Medical CenterComment on above:Result Comment: [facility]???s estimated glomerular filtration rate (eGFR) will no [...] potential consequences that do not disproportionately affect anyone group of individuals.Performed By: #### [id number] ####[facility] ([facility])[address] [place], [place] [address]Tfjvrbx [Mass/Vol]81 mg/sWAkrczs21-228FgvofqeapeSycamore Medical CenterComment on above:Performed By: #### [id number] ####[facility] ([facility])[address] [place], [place] [address]Nbnbbwqgs [Moles/Vol]4.5 mmol/LNormal3.5-5.1UnSycamore Medical CenterComment on above:Performed By: #### [id number] ####[facility] ([facility])[address] [place], [place] [address]Hbqwlv [Moles/Vol]139 mmol/L Ckwcvn304-261KbzsfrtqpmSycamore Medical CenterComment on above:Performed By: #### [id number] ####[facility] ([facility])[address] [place], [place] [address]Iytn nitrogen [Mass/Vol]26 mg/dLHigh7-25UnSycamore Medical CenterComment on above:Performed By: #### [id number] ####[facility] ([facility])[address], [place] [address]ZVQE NITROGEN/CREATININE (MASS RATIO) IN SER/PLAS20.3Normal [facility] HospitalComment on above:Performed By: #### [id number] ####[facility] ([facility])[address] [place], [place] [address]QAEFIIP, IONIZED on 18-22-9419JJJTGAY IONIZED (MMOL/L) IN BLOOD1.00 mmol/LLow1.15-1.33UnSycamore Medical CenterComment on above:Performed By: #### [id number] ####[facility] RESPIRATORY [id number] [place] [address] USACBCon 08-27-2024 Erythrocyte distribution width (RBC) [Ratio]17.6 %High11.5-15.0UnSycamore Medical CenterComment on above:Performed By: #### [id number] ####[facility] (BEAKER)[address] [place] [address]DUPLFGUROXL MEAN CORPUSCULAR HEMOGLOBIN CONCENTRATION (G/DL) BY XCUGMOXQM96.6 g/dLLow32.0-35.0 [facility] HospitalComment on above:Performed By: #### [id number] ####[facility] (BEAKER)[address] [place] [address]Olygsgqbgo (Bld) [Volume fraction]40.9 %Tbzqdb32.0-45.0UnSycamore Medical Center Comment on above:Performed By: #### [id number] ####[facility] (BEAKER)[address] [place] [address]Fgbjfqipgh (Bld) [Mass/Vol]12.1 g/uODuamzz71.0-15.0 [facility] HospitalComment on above:Performed By: #### [id number] ####[facility] (BEAKER)[address] [place] [address]QQZ (RBC) [Entitic mass]29.7 qwVjndbd52.0-33.0UnSycamore Medical CenterComment on above:Performed By: #### [id number] ####[facility] (BEAKER)[address] [place] [address]SNV (RBC) [Entitic vol]100.2 cSMcgl47.0-98.0UnSycamore Medical CenterComment on above:Performed By: #### [id number] ####[facility] (BEAKER)[address] [place] [address]CGVLHMPZQ (10*3/UL) IN BLOOD AUTOMATED BNQMR773 10*3/vKBsbegt599-654DtrsowbbbaSycamore Medical Center Comment on above:Performed By: #### [id number] ####[facility] ([facility])[address] [place] [address]QBJ (Bld) [#/Vol]4.08 10*6/uLNormal3.80-5.00 [facility] HospitalComment on above:Performed By: #### [id number] ####[facility] ([facility])[address] [place] [address]NJD (Bld) [#/Vol]7.20 10*3/uLNormal4.00-10.60UnSycamore Medical CenterComment on above:Performed By: #### [id number] ####[facility] ([facility])[address] [place], [place] [address]WWAMUXYvn 86-13-5079ZXXBVAVOuuilqRvhrdkimoc Genesis HospitalDSon 43-84-6645HJLcvkcwAgtaijjqfm of [place] Medical CenterMAGNESIUMon 36-36-0573Gmfgnztqu [Mass/Vol]3.0 mg/dLHigh1.9-2.7UnSycamore Medical CenterComment on above:Performed By: #### [id number] ####[facility] ([facility])[address] [facility] [place], [place] [address]Fasosk Onlyon 13-49-5226Gluern Only [id number] Shayy Maynard 1945 F Date Provider Department Center 08/27/2024 [address]-EHRFLIBIA KEATING HV[facility]CL[facility] [facility] No family history on fileNormalUniversBerger HospitalPHOSPHORUSon 06-97-5985Sgqhdtpit [Mass/Vol]3.9 mg/dLNormal2.5-5.0UnSycamore Medical CenterComment on above:Performed By: #### [id number] ####[facility] ([facility])[address] [place] [address]16yn 01-42-751612WrlalsSermbwbjzk Genesis HospitalANESon 88-61-8789DMHCGmtqmbBurcwgwjul Genesis HospitalANESNormalUniversity Genesis HospitalBASIC METABOLIC PANELon 09-51-3096Ibfts gap [Moles/Vol]12 mmol/LNormal7-20UnSycamore Medical CenterComment on above:Performed By: #### [id number] ####[facility] ([facility])[address] [place], [place] [address]Lkgkzsi [Mass/Vol]8.9 mg/dLNormal 8.6-10.3UnSycamore Medical CenterComment on above:Performed By: #### [id number] ####[facility] ([facility])[address] [place], [place] [address]Ncwuyozr [Moles/Vol]106 mmol/CColvvo13-475FzlpyivoprSycamore Medical CenterComment on above:Performed By: #### LAB15 ####[facility] ([facility])[address] [place], [place] [address]NR6 [Moles/Vol]28 mmol/JIzxhlf50-86UbmjxukkqsSycamore Medical CenterComment on above:Performed By: #### LAB15 ####[facility] ([facility])[address] [place], [place] [address]Pmssthlnwu [Mass/Vol]1.27 mg/dLHigh 0.60-1.20UnSycamore Medical CenterComment on above:Performed By: #### LAB15 ####[facility] ([facility])[address] [place], [place] [address]AFNIIEIUHM FILTRATION RATE ML/MIN/1.73 SQ M.DZIQOHCIG29.5 mL/min/1.73m*2Low>60.0UnSycamore Medical CenterComment on above:Result Comment: [facility]???s estimated glomerular filtration rate (eGFR) will no [...] potential consequences that do not disproportionately affect anyone group of individuals. Performed By: #### [id number] ####[facility] ([facility])[address] [place], [place] [address]Wpbrnad [Mass/Vol]101 mg/lMGadx16-250AsjynvhzgySycamore Medical CenterComment on above:Performed By: #### LAB15 ####[facility] ([facility])[address] [place], [place] [address]Ktstlpvtj [Moles/Vol]4.5 mmol/LNormal 3.5-5.1UnSycamore Medical CenterComment on above:Performed By: #### LAB15 ####[facility] ([facility])[address] [place], [place] [address]Pdfkpo [Moles/Vol]141 mmol/QIjcjql036-486IyieobadalSycamore Medical CenterComment on above:Performed By: #### LAB15 ####[facility] ([facility])[address] [place], [place] [address]Opcy nitrogen [Mass/Vol]25 mg/dLNormal7-25UnSycamore Medical CenterComment on above:Performed By: #### [id number] ####[facility] ([facility])[address] [place], [place] [address]IRQF NITROGEN/CREATININE (MASS RATIO) IN SER/PLAS19.7NormalUniversBerger HospitalComment on above: Performed By: #### [id number] ####[facility] ([facility])[address] [place], [place] [address]HCVud 57-33-6319Qogjipmjdve distribution width (RBC) [Ratio]17.0 %High 11.5-15.0UnSycamore Medical CenterComment on above:Performed By: #### [id number] ####[facility] ([facility])[address] [place] [address] ERYTHROCYTE MEAN CORPUSCULAR HEMOGLOBIN CONCENTRATION (G/DL) BY QCSEIAGPF29.6 g/dLLow32.0-35.0UnSycamore Medical CenterComment on above:Performed By: #### [id number] ####[facility] ([facility] [place] [address] Hematocrit (Bld) [Volume fraction]39.6 %Plzcbh94.0-45.0UnSycamore Medical CenterComment on above:Performed By: #### [id number] ####[facility] ([facility])[address] [place] [address]Zriutqyiqt (Bld) [Mass/Vol]12.5 g/dL Vgwzjs91.0-15.0UnSycamore Medical CenterComment on above:Performed By: #### [id number] ####[facility] ([facility])[address] [place] [address]QBK (RBC) [Entitic mass]29.5 uaCnqyfc69.0-33.0UnSycamore Medical Center Comment on above:Performed By: #### [id number] ####[facility] ([facility])[address] [place] [address]GRA (RBC) [Entitic vol]93.4 nVIqsduc43.0-98.0 [facility] HospitalComment on above:Performed By: #### [id number] ####[facility] ([facility])[address] [place] [address]JOPAYXZHP (10*3/UL) IN BLOOD AUTOMATED MEHZC644 10*3/dTEdkpuu772-934LvomnxjdujSycamore Medical CenterComment on above:Performed By: #### [id number] ####[facility] ([facility])[address] [place] [address]YBO (Bld) [#/Vol]4.24 10*6/uLNormal 3.80-5.00UnSycamore Medical CenterComment on above:Performed By: #### [id number] ####[facility] ([facility])[address] [place] [address]VAS (Bld) [#/Vol]10.20 10*3/uLNormal4.00-10.60UnSycamore Medical CenterComment on above:Performed By: #### [id number] ####[facility] ([facility])[address] [place], [place] [address]KPFPENYvv 13-28-7816ERDYBFEWsmrjzItlokpcpgg Genesis HospitalCT ABDOMEN PELVIS W IV CONTRASTon 44-00-5934NJX ABDOMEN PELVIS W IV CONTRASTNormalUniversity Genesis HospitalCTA CHEST W IV CONTRASTon 15-04-5326DKI CHEST W IV CONTRASTNormalUniversBerger HospitalHIGH SENSITIVITY TROPONIN Ion 48-02-9675EN TROPONIN I (NG/L)18 ng/LHigh<15UnSycamore Medical CenterComment on above:Performed By: #### [id number] ####[facility] ([facility])[address] [place], [place] [address]POld 73-22-6749QXPamsha [facility] Memorial HospitalLACTIC ACID WITH 4 HOUR REFLEXon 08-26-2024 LACTATE (MMOL/L) IN SER/PLAS0.8 mmol/LNormal0.5-2.2UnSycamore Medical CenterComment on above:Performed By: #### [id number] ####[facility] ([facility])[address] [place], [place] [address]ZPMTRPYZNgg 55-70-6485Nxtfplfnh [Mass/Vol]2.0 mg/dLNormal1.9-2.7UnSycamore Medical CenterComment on above:Performed By: #### [id number] ####[facility] ([facility])[address] [place], [place] [address]CYBIZKMSgl 72-26-5070ZTEHCPFKWgknnz was called to Milagro MELGAR. Questions answered. No further issues or concerns. Director Of Diagnostic Imaging also called and updated the Deroy on pt room number the night club manager nurse and current status of the pt. He verbalized understanding NormalUnSycamore Medical CenterNURSNOTEPREOPERATIVE DOPPLERS BOTH PT AND DP MARKED AND DOPPLERABLE IN BILATERAL FEET.[facility] DublinNURSNOTEPt was given call light and family brought to bedside. RN called anesthesia about high bp will be around soon.[facility] NURSNOTEPt stated her knew the meds she took, rn spoke to who was unsure about when the last time she took some of her meds was. Knows she didn't take any today and hasn't had the blood thinner in 2 days.[facility] DublinNURSNOTEPCT took pt to restroom then wheeled her to bay 5. Pt was instructed to remove all belongings and put gown on.NormalUnSycamore Medical CenterOPNOTEon 97-21-3817XMRBKGVasqbnJmgtpstpcb Genesis HospitalPOPA GLUCOSE METER UNSOLICITED RESULTSon 05-92-3966Zehixjz [Mass/Vol]96 mg/vYRauhmq07-762RhcmrpolviSycamore Medical CenterComment on above:Order Comment: Waived Testing in the ED is performed under the ED CLIA certificate #[id number].Result Comment: [email or web address] Performed By: #### [id number] ####[facility] (BEAKER)[address] [place], [place] [address]TGKOHLH-TLZpx 54-43-9392QKG IN PPP BY COAGULATION ASSAY1.01 Normal0.90-1.10UnSycamore Medical CenterComment on above:Result Comment: [facility] RECOMMENDED INR FOR WARFARIN THERAPY CONDITION INRPROPHYLAXIS OF VENOUS THROMBOSIS 2-3(HIGH-RISK SURGERY)TREATMENT OF VENOUS THROMBOSIS 2-3TREATMENT OF PULMONARY EMBOLISM 2-3PREVENTION OF SYSTEMIC EMBOLISM: 2-3 ACUTE MYOCARDIAL INFARCTION TISSUE HEART VALVES VALVULAR HEART DISEASE ATRIAL FIBRILLATION RECURRENT SYSTEMIC EMBOLISMMECHANICAL HEART VALVE 2.5-3.5 FROM: ORAL ANTICOAGULANTS. MECHANISM OF ACTION, CLINICAL EFFECTIVENESS, AND OPTIMAL THERAPE UTIC RANGE. CHEST 1995;108:231S-246S.Performed By: #### [id number] ####[facility] (PCA Audit)[address] [place], [place] [address]JTRIOHBPTCW TIME (PT) IN PPP BY COAGULATION ASSAY13.3 TtaxsitIkewbk30.3-14.8UnSycamore Medical CenterComment on above:Performed By: #### [id number] ####[facility] ([facility])[address] [place], [place] [address]VUGH AND SCREENon 22-04-3326GO SCREEN NegativeNormalUniAshtabula General HospitalComment on above:Performed By: #### [id number] ####[facility] BLOOD BANK,ABO group Nom (Bld)ONormalUnSycamore Medical CenterComment on above:Performed By: #### [id number] ####[facility] BLOOD BANK,RH TYPE IN BLOODPositiveNormalUniAshtabula General HospitalComment on above: Performed By: #### [id number] ####[facility] BLOOD BANK,Orders Onlyon 57-31-7479Aikmht [id number] Shayy Maynard A 1945 F Date Provider Department Center 08/23/2024 BRIANNA DON [facility] [place] [facility] No family history on fileNormalUniAshtabula General HospitalOrders Onlyon 82-89-4747Wjwpap [id number] Shayy Maynard A 1945 F Date Provider Department Center 08/18/2024 FORREST BOONE HVCVASENDO [place] [facility] No family history on fileNormalUniAshtabula General HospitalUrine Culture on 07-45-1198Gjrrrunq identified Cx Nom (U)<9,000 colonies/ml mixed bacterial skin contaminants 2 Days PERFORMED BY: [facility] [address] [place] [address] PATHOLOGIST FOOD BEVERAGE SERVER ISAI DASH M.D.[facility] Beach Physician GroupComment on above: Performed By: #### CUU #### [facility] [address] [id number] IEL17vy [id number] and left a message for patient to call the office to scheduleNormalUniversity of [facility] Documentationon [id number] Alex,Shayy A 1945 F Date Provider Department Center 08/05/2024 [id number]-EDGRTUTJAIME DOSHI HVCVASENDO [place] [facility] No family history on fileNormalUniversity of Covenant Children'S HospitalFollow-Upon 88-29-4703Ogjayo-UpNormalUniversity of Covenant Children'S HospitalOrders Onlyon 11-18-7174Hgaddy [id number] Alex,Shayy A 1945 F Date Provider Department Center 08/02/2024 928-VIKTOR RUCKER CARD [facility] No family history on fileNormalUniversity of Covenant Children'S HospitalOrders Onlyon 60-55-3907Zabttk [id number] Alex,Shayy A 1945 F Date Provider Department Center 07/27/2024 U0095-HUUFWMGU, HISTORICAL CARD [facility] No family history on fileNormalUniversity of Covenant Children'S HospitalALTon 80-11-1533JIN [Catalytic activity/Vol]10 U/LNormal7-52UnSycamore Medical CenterComment on above:Performed By: #### [id number] ####[facility] (BEAKER)[address] [place], [place] [address]GYPvl 66-23-0129FBR [Catalytic activity/Vol]14 U/OWgcsmk64-11FgwgvtgoeiSycamore Medical CenterComment on above:Performed By: #### [id number] ####[facility] (BEAKER)[address] [place], [place] [address]OSBWXBKNXY, SERUMon 00-63-9456Fqbfxvzfhy [Mass/Vol]1.15 mg/dL Normal0.60-1.20UnSycamore Medical CenterComment on above:Performed By: #### [id number] ####[facility] ([facility])[address] [place] [address] GLOMERULAR FILTRATION RATE ML/MIN/1.73 SQ M.YVIRGSEWU30.9 mL/min/1.73m*2Low>60.0 [facility] HospitalComment on above:Result Comment: [facility]???s estimated glomerular filtration rate (eG FR) will no longer include consideration of race [...] potential consequences that do not disproportionately affect anyone group of individuals. Performed By: #### [id number] ####[facility] ([facility])[address] [place], [place] [address]ZDF ABDOMEN PELVIS W IV CONTRASTon 48-80-2962EZG ABDOMEN PELVIS W IV CONTRASTInvalid Interpretation CodeUnSycamore Medical CenterLIPID PANELon 96-37-8653HURC/HDL4.8 mg/dLNormalUniversBerger HospitalComment on above:Performed By: #### [id number] ####[facility] ([facility])[address] [place], [place] [address]Ashrehbumtf [Mass/Vol]217 mg/dLHigh 120-200UnSycamore Medical CenterComment on above:Performed By: #### [id number] ####[facility] ([facility])[address], [place] [address]Loauonofi [Mass/Vol]170 mg/dLHigh<150UnSycamore Medical CenterComment on above: Result Comment: TRIGLYCERIDE REFERENCE RANGE:20 YEARS AND OLDER CARDIOVASCULAR RISKLESS THAN 150 mg/dL LOW [id number] TO 199 mg/dL BORDERLINE WSVG533 mg/dL AND GREATER HIGH RISKPerformed By: #### [id number] ####[facility] (BEAKER)[address] [facility] [place] [address]Uosmfmluv [Mass/Vol]138 mg/dLNormal0-160UnSycamore Medical CenterComment on above:Performed By: #### [id number] ####[facility] (BEAKER)[address] [place] [address]Hqodcplmk [Mass/Vol]45 mg/kKNedbuf49-02JbnrgpxmefSycamore Medical CenterComment on above:Performed By: #### [id number] ####[facility] ([facility])[address] [place] [address] NON HDL CHOL. (LDL+VLDL)172NoUNC Health LenoirniAshtabula General HospitalComment on above:Performed By: #### [id number] ####[facility] ([facility] [place], [place] [address]FMRLZ VLDL-C34 mg/dLNormal0-40UnSycamore Medical CenterComment on above:Performed By: #### [id number] ####[facility] ([facility] [facility])[address] [place], [place] [address]Krirj [id number] Shayy Maynard 1945 F Date Provider Department Center 07/22/2024 2245-[facility] OPD LAB RESOURCE [facility] OPD [facility] C No family history on fileNormalUniAshtabula General Hospital36on [id number] message for pt to return call to schedule [address] Whitten.NormalUnSycamore Medical Center37on [id number]-Onccni call radiology at [phone] to schedule testing (CTA abdomen and pelvis) to be done before your next appointmentNormalUniAshtabula General HospitalFollow-Upon 47-98-6796Wvzuop-UpNormalUniversBerger HospitalBASIC METABOLIC PANELon 76-16-7264Phttx gap [Moles/Vol]14 mmol/LNormal7-20 [facility] HospitalComment on above:Performed By: #### [id number] ####[facility] (BEAKER)[address] [place], [place] [address]Omathwb [Mass/Vol]9.1 mg/dLNormal8.6-10.3UnSycamore Medical CenterComment on above:Performed By: #### [id number] ####[facility] ([facility]ER)[address] [place], [place] [address]Slojzgub [Moles/Vol]105 mmol/ZOubity43-296PzncrwxtfxSycamore Medical CenterComment on above:Performed By: #### [id number] ####[facility] (AKER)[address] [place], [place] [address]ME7 [Moles/Vol]27 mmol/LNormal 21-31UnSycamore Medical CenterComment on above:Performed By: #### [id number] ####[facility] ([facility])[address] [place], [place] [address]Dhzpomvumq [Mass/Vol]1.32 mg/dLHigh0.60-1.20UnSycamore Medical CenterComment on above:Performed By: #### [id number] ####[facility] ([facility])[address] [place], [place] [address]RSERUUQZCT FILTRATION RATE ML/MIN/1.73 SQ M.OZWHMYLHU41.8 mL/min/1.73m*2Low>60.0UnSycamore Medical CenterComment on above:Result Comment: [facility]???s estimated glomerular filtration rate (eGFR) will no [...] potential consequences that do not disproportionately affect anyone group of individuals.Performed By: #### [id number] ####[facility] ([facility])[address] [place], [place] [address]Exttvxk [Mass/Vol]94 mg/lZHcuzpr02-712UxinotdccaSycamore Medical CenterComment on above:Performed By: #### [id number] ####[facility] ([facility])[address] [place], [place] [address]Ctojfrmbu [Moles/Vol]3.8 mmol/LNormal3.5-5.1UnSycamore Medical CenterComment on above:Performed By: #### [id number] ####[facility] ([facility])[address] [place] [address] Sodium [Moles/Vol]142 mmol/XRcefmi028-494MfkkuijysfSycamore Medical Center Comment on above:Performed By: #### [id number] ####[facility] ([facility])[address] [place], [place] [address]Lgcd nitrogen [Mass/Vol]28 mg/dLHigh7-25UnSycamore Medical CenterComment on above:Performed By: #### [id number] ####[facility] ([facility])[address] [place], [place] [address]NLRD NITROGEN/CREATININE (MASS RATIO) IN SER/PLAS21.2NormalUnSycamore Medical CenterComment on above:Performed By: #### [id number] ####[facility] ([facility])[address] [place], [place] [address]SSGea 19-74-6698Yqgkvryaqxf distribution width (RBC) [Ratio] 16.2 %High11.5-15.0UnSycamore Medical CenterComment on above:Performed By: #### [id number] ####[facility] ([facility])[address] [place], [place] [address]RQPYGHVZEAF MEAN CORPUSCULAR HEMOGLOBIN CONCENTRATION (G/DL) BY AUTOMATED 30.9 g/dLLow32.0-35.0UnSycamore Medical CenterComment on above: Performed By: #### [id number] ####[facility] ([facility])[address] [place], [place] [address]Uydxqbgomi (Bld) [Volume fraction]34.3 %Low36.0-45.0 [facility] HospitalComment on above:Performed By: #### [id number] ####[facility] ([facility])[address] [place] [address]Yjyigkzdcm (Bld) [Mass/Vol]10.6 g/dLLow12.0-15.0UnSycamore Medical CenterComment on above:Performed By: #### [id number] ####[facility] ([facility])[address] [place] [address]VCR (RBC) [Entitic mass]28.4 moNbrmzy65.0-33.0UnSycamore Medical CenterComment on above:Performed By: #### [id number] ####[facility] ([facility])[address] [place] [address]FRO (RBC) [Entitic vol] 92.0 vOZmknzy42.0-98.0UnSycamore Medical CenterComment on above: Performed By: #### [id number] ####[facility] ([facility])[address] [place] [address]AMJUNVERU (10*3/UL) IN BLOOD AUTOMATED [id number] 10*3/uLNormal 150-400UnSycamore Medical CenterComment on above:Performed By: #### [id number] ####[facility] ([facility])[address] [place] [address]NHM (Bld) [#/Vol]3.73 10*6/uLLow3.80-5.00UnSycamore Medical CenterComment on above:Performed By: #### [id number] ####[facility] ([facility])[address] [place] [address]LJU (Bld) [#/Vol]8.95 10*3/uLNormal4.00-10.60UnSycamore Medical CenterComment on above:Performed By: #### [id number] ####[facility] ([facility])[address] [place], [place] [address]OXKSVSBDDG, URINE, RANDOM on 95-23-7110Fpofcvkzlz (U) [Mass/Vol]115.0 mg/eRNlhqyt45-505BlybzjmqqgSycamore Medical CenterComment on above:Performed By: #### [id number] ####[facility] ([facility])[address] [facility], [place] [address]Peswhjldo By: #### [id number] ####[facility] ([facility])[address] [place], [place] [address]Avwlum-Htov 37-79-4325Iisgva-UpNormalUniversBerger HospitalLabon 38-85-6083Dkj [id number] Shayy Maynard 1945 F Date Provider Department Center 05/11/20242241-[facility] Comprehensiv No family history on fileNormalUniAshtabula General HospitalMICROALBUMIN, URINE, RANDOMon 28-88-8160Edspcnz DL <= 20 mg/L (U) [Mass/Vol]1.8 mg/dLNormal [facility] HospitalComment on above:Performed By: #### [id number] ####[facility] ([facility])[address] [place] [address] MICROALBUMIN/CREATININE (MG/G) IN URINE15.7 mg/g CreatNormal0.0-30.0UnSycamore Medical CenterComment on above:Performed By: #### [id number] ####[facility] ([facility])[address] [place], [place] [address]WDXZGQC, URINE, RANDOMon 28-46-3908Lmjhaii (U) [Mass/Vol]30.2 mg/dLNoalUniAshtabula General HospitalComment on above:Result Comment: There are no established reference values for random urine specimens.Performed By: #### [id number] ####[facility] ([facility])[address] [place], [place] [address]RQITIEWORIlk 39-56-0863WLLCUBBYZ, TOTAL PRESENCE IN URINENegativeNormalNegativeUnSycamore Medical Center Comment on above:Performed By: #### [id number] ####[facility] ([facility])[address] [place], [place] [address]Uulujrq (U)ClearNormalClearUnSycamore Medical CenterComment on above:Performed By: #### [id number] ####[facility] ([facility])[address] [place], [place] [address]Ebxug (U)Light-YellowNormalColorless, Yellow, Light-YellowUnSycamore Medical CenterComment on above: Performed By: #### [id number] ####[facility] ([facility])[address] [place], [place] [address]ZMBUFCZ (MG/DL) IN URINENormalNormalNormalUniAshtabula General HospitalComment on above:Performed By: #### [id number] ####[facility] ([facility])[address] [place], [place] [address]ZZEDFEMCPI PRESENCE IN URINENegativeNormmdNegativeUnSycamore Medical CenterComment on above: Performed By: #### [id number] ####[facility] ([facility])[address] [facility] [place] [address]Hngtrvz Ql (U)NegativeNormalNegativeUnSycamore Medical CenterComment on above:Performed By: #### [id number] ####[facility] ([facility])[address] [place], [place] [address]HORVYDNKJ ESTERASE PRESENCE IN URINE BY TEST STRIPSmallAbnormalNegHighland District HospitalComment on above:Performed By: #### [id number] ####[facility] ([facility])[address] [place], [place] [address]CAMRJMW PRESENCE IN URINENegativeNormalNegativeUnSycamore Medical CenterComment on above:Performed By: #### [id number] ####[facility] ([facility])[address] [place], [place] [address]aK (U)5.5 [pH]Normal 5.0-8.0UnSycamore Medical CenterComment on above:Performed By: #### [id number] ####[facility] ([facility])[address] [place], [place] [address]Ffpoxlj (U) [Mass/Vol]NegativeNormalNegativeGreene Memorial HospitalComment on above:Performed By: #### [id number] ####[facility] ([facility])[address] [place] [address]Npvcxgco gravity (U) [Rel density]1.137Wnpxmr9.010-1.030 [facility] HospitalComment on above:Performed By: #### [id number] ####[facility] ([facility])[address] [place] [address]OAQNRFSYWKKR (MG/DL) IN URINENormalNormalNormalUniversBerger HospitalComment on above:Performed By: #### [id number] ####[facility] ([facility])[address] [place] [address]LITOVNZLWF MICROSCOPICon 87-89-4931ZKC (#/HPF) IN URINE SEDIMENT0-2NormalNone Seen, 0-2UnSycamore Medical CenterComment on above:Performed By: #### [id number] ####[facility] ([facility])[address] [place] [address]RTSSNRTS EPITHELIAL CELLS (#/LPF) IN URINE SEDIMENTFewNormal None Seen, Occasional, FewUnSycamore Medical CenterComment on above: Performed By: #### [id number] ####[facility] ([facility])[address] [place] [address]EAR (LEUKOCYTE) (#/HPF) IN URINE SEDIMENT3-5AbnormalNone Seen, 0-2UnSycamore Medical CenterComment on above:Performed By: #### [id number] ####[facility] ([facility])[address] [place] [address]62jg [id number]-Khrslh call radiology at [phone] to schedule ultrasound testing. Can be scheduled same day as follow up appointmentsNormalUniversBerger HospitalFollow-Upon 24-48-6430Rfymvy-UpNormalUniversBerger Hospital Follow-Upon 40-91-4731Alyjqa-UpNormalUniversity of [facility]36on 09-76-617521InpjagTshqlnweep of [facility] Children'S HospitalOrders Onlyon 02-19-2024 Orders [id number] Shayy Maynard Srinath 1945 F Date Provider Department Center 02/19/2024 [facility] No family history on fileNormalUniversity of [facility]oven[facility] Children'S HospitalDocumentation on 84-77-3473DbcvbstfmjigaKxhelgTejurxacgj of [facility]30on 53-83-237444NpwqddYabalspbzt of [facility]'S HospitalPgxfbk43NlyflfNtwwxjflneBerger HospitalBASIC METABOLIC PANELon 62-75-4876Asdly gap [Moles/Vol]9 mmol/LNormal7-20UnSycamore Medical CenterComment on above:Performed By: #### [id number] ####[facility] ([facility])[address] [place] [address] Calcium [Mass/Vol]8.3 mg/dLLow8.6-10.3UnSycamore Medical CenterComment on above:Performed By: #### [id number] ####[facility] ([facility])[address] [place], [place] [address]Cbbqaexk [Moles/Vol]107 mmol/MGhvege54-967NuujindscqSycamore Medical CenterComment on above:Performed By: #### [id number] ####[facility] ([facility])[address] [place], [place] [address]IR0 [Moles/Vol]29 mmol/LNormal 21-31UnSycamore Medical CenterComment on above:Performed By: #### [id number] ####[facility] ([facility])[address] [place], [place] [address]Dqmmdizthd [Mass/Vol]1.70 mg/dLHigh0.60-1.20UnSycamore Medical CenterComment on above:Performed By: #### [id number] ####[facility] ([facility])[address] [place], [place] [address]GOKPBYEWMC FILTRATION RATE ML/MIN/1.73 SQ M.KJDJZRCII79.1 mL/min/1.73m*2Low>60.0UnSycamore Medical CenterComment on above:Result Comment: [facility]???s estimated glomerular filtration rate (eGFR) will no [...] potential consequences that do not disproportionately affect anyone group of individuals.Performed By: #### [id number] ####[facility] ([facility])[address] [place], [place] [address]Qvizbek [Mass/Vol]85 mg/qJYjxfmh26-730QrawouflujSycamore Medical CenterComment on above:Performed By: #### [id number] ####[facility] ([facility])[address] [place], [place] [address]Wmeqdnzco [Moles/Vol]4.6 mmol/LNormal3.5-5.1UnSycamore Medical CenterComment on above:Performed By: #### [id number] ####[facility] ([facility])[address] [place] [address] Sodium [Moles/Vol]140 mmol/CDuaxii850-347LgbstwgxkpSycamore Medical Center Comment on above:Performed By: #### [id number] ####[facility] ([facility])[address] [place], [place] [address]Yyih nitrogen [Mass/Vol]21 mg/dLNormal7-25 [facility] HospitalComment on above:Performed By: #### [id number] ####[facility] ([facility])[address] [place], [place] [address]BKFQ NITROGEN/CREATININE (MASS RATIO) IN SER/PLAS12.4NormalUniversBerger HospitalComment on above:Performed By: #### [id number] ####[facility] ([facility])[address] [place] [address]RJE WITH AUTO DIFFERENTIALon 33-23-6268Cfxvoukmvaa distribution width (RBC) [Ratio]16.7 %High11.5-15.0 [facility] HospitalComment on above:Performed By: #### [id number] ####[facility] ([facility])[address] [place] [address]KPFQOTXAQWA MEAN CORPUSCULAR HEMOGLOBIN CONCENTRATION (G/DL) BY EROHEYXBR47.1 g/dLLow32.0-35.0 [facility] HospitalComment on above:Performed By: #### [id number] ####[facility] ([facility])[address] [place] [address]Qbkslzsoym (Bld) [Volume fraction]27.9 %Low36.0-48.0UnSycamore Medical CenterComment on above:Performed By: #### [id number] ####[facility] ([facility])[address] [place] [address]Pzpqttdfvx (Bld) [Mass/Vol]8.4 g/dLLow12.0-15.0UnSycamore Medical CenterComment on above:Performed By: #### [id number] ####[facility] ([facility])[address] [place] [address]IOI (RBC) [Entitic mass] 27.5 rtFdjajx57.0-33.0UnSycamore Medical CenterComment on above: Performed By: #### [id number] ####[facility] ([facility])[address] [place] [address]QDZ (RBC) [Entitic vol]91.5 oBNenwnj40.0-98.0UnSycamore Medical CenterComment on above:Performed By: #### [id number] ####[facility] ([facility])[address] [place] [address]TOJK (PER 100 WBCS) BY AUTOMATED COUNT0.0 %Pkmwgs1QwgcafbsndSycamore Medical CenterComment on above: Performed By: #### [id number] ####[facility] ([facility])[address] [place] [address]KFXULAMOQ (10*3/UL) IN BLOOD AUTOMATED RXWZF230 10*3/uLNormal 150-400UnSycamore Medical CenterComment on above:Performed By: #### [id number] ####[facility] ([facility])[address] [place] [address]LKS (Bld) [#/Vol]3.05 10*6/uLLow3.80-5.00UnSycamore Medical CenterComment on above:Performed By: #### [id number] ####[facility] ([facility])[address] [place] [address]RFR (Bld) [#/Vol]5.28 10*3/uLNormal4.00-10.60UnSycamore Medical CenterComment on above:Performed By: #### [id number] ####[facility] ([facility])[address] [place] [address]ZYwy 61-78-0283XNSmdgiz [facility] HospitalMAGNESIUMon 84-60-1277Irnisvqea [Mass/Vol]1.9 mg/dLNormal1.9-2.7UnSycamore Medical CenterComment on above:Performed By: #### [id number] ####[facility] ([facility])[address] [place] [address]YYVZBT DIFFERENTIALon 22-92-3012SFDINKGDU (10*3/UL) IN BLOOD BY CALCULATION 0.00 10*3/uLNormal0.00-0.20UnSycamore Medical CenterComment on above: Performed By: #### [id number] ####[facility] ([facility])[address] [place] [address]SVKFOALXJ/100 LEUKOCYTES IN BLOOD BY AUTOMATED COUNT0.0 % Normal0.0-1.0UnSycamore Medical CenterComment on above:Performed By: #### [id number] ####[facility] ([facility])[address] [place] [address] EOSINOPHILS (10*3/UL) IN BLOOD BY CALCULATION0.21 10*3/uLNormal0.00-0.50 [facility] HospitalComment on above:Performed By: #### [id number] ####[facility] ([facility])[address] [place] [address]VUQPRHWHNYF/100 LEUKOCYTES IN BLOOD BY AUTOMATED COUNT4.0 %Normal0.0-6.0UnSycamore Medical CenterComment on above:Performed By: #### [id number] ####[facility] ([facility])[address] [place] [address]FJIVWVYNNBS (10*3/UL) IN BLOOD BY CALCULATION0.81 10*3/uLLow1.20-4.00UnSycamore Medical CenterComment on above:Performed By: #### [id number] ####[facility] ([facility])[address] [place] [address]KAIZNEUPXJR/100 LEUKOCYTES IN BLOOD BY AUTOMATED COUNT15.4 % Low20.0-45.0UnSycamore Medical CenterComment on above:Performed By: #### [id number] ####[facility] ([facility])[address] [place] [address] METAMYELOCYTES (10*3/UL) IN BLOOD BY CALCULATION0.04 10*3/uLHigh0.00UnSycamore Medical CenterComment on above:Performed By: #### [id number] ####[facility] ([facility])[address] [facility] [place], [place] [address]PSDLFZMRFWQGEY/100 LEUKOCYTES IN BLOOD CELLAVISION0.7 %High0.0-0.0UnSycamore Medical CenterComment on above:Performed By: #### [id number] ####[facility] ([facility])[address] [place] [address]CXRMNETKI (10*3/UL) IN BLOOD BY CALCUATION0.25 10*3/uLNormal0.10-1.00UnSycamore Medical CenterComment on above:Performed By: #### [id number] ####[facility] ([facility])[address] [place], [place] [address]FXEPPCCEB/100 LEUKOCYTES IN BLOOD BY AUTOMATED COUNT4.7 %Low 5.0-12.0UnSycamore Medical CenterComment on above:Performed By: #### [id number] ####[facility] ([facility])[address] [place] [address] MYELOCYTES (10*3/UL) IN BLOOD BY CALCULATION0.04 10*3/uLHigh0.00UnSycamore Medical CenterComment on above:Performed By: #### [id number] ####[facility] ([facility])[address] [place], [place] [address]NBYCVKEYYQ/100 LEUKOCYTES IN BLOOD CELLAVISION0.7 %High0.0-0.0UnSycamore Medical CenterComment on above:Performed By: #### [id number] ####[facility] ([facility])[address] [place], [place] [address]OKCUZXUGQPT (10*3/UL) IN BLOOD BY CALCULATION3.9 10*3/uL Normal1.6-7.6UnSycamore Medical CenterComment on above:Performed By: #### [id number] ####[facility] ([facility])[address] [place] [address] NEUTROPHILS/100 LEUKOCYTES IN BLOOD BY AUTOMATED COUNT74.5 %High40.0-72.0 [facility] HospitalComment on above:Performed By: #### [id number] ####[facility] ([facility])[address] [place], [place] [address]SOTVWP CELLS/100 LEUKOCYTES IN BLOOD0 %Snegkj2BjwhtnhbuvSycamore Medical CenterComment on above:Performed By: #### [id number] ####[facility] ([facility])[address] [place], [place] [address]GGFDWKNGE GIANT PRESENCE IN BLOOD BY LIGHT MICROSCOPYPresent NormalUnSycamore Medical CenterComment on above:Performed By: #### [id number] ####[facility] ([facility])[address] [place], [place] [address]NUNXWT CELLS/100 LEUKOCYTES IN BLOOD CELLAVISIONPresentNormalUniversBerger HospitalComment on above:Performed By: #### [id number] ####[facility] ([facility])[address] [place] [address]BKQBBOG LYMPHOCYTES (10*3/UL) IN BLOOD BY CALCULATION0.00 10*3/uLNormal0.00UnSycamore Medical CenterComment on above:Performed By: #### [id number] ####[facility] ([facility])[address] [place] [address]EOBCMWI LYMPHOCYTES/100 LEUKOCYTES IN BLOOD CELLAVISION0.0 % Normal0.0-0.0UnSycamore Medical CenterComment on above:Performed By: #### [id number] ####[facility] ([facility])[address] [place] [address] NURSNOTEon 41-65-4021CCEFNRQBGivbtfMxahlkqfxm of [place] Medical CenterPOCT GLUCOSE METER UNSOLICITED RESULTSon 23-74-4651Jtydycu [Mass/Vol]103 mg/dLNormal 70-105UnSycamore Medical CenterComment on above:Order Comment: Waived Testing in the ED is performed under the ED CLIA certificate #[id number].Result Comment: omwfc57Zpdroikch By: #### [id number] ####[facility] ([facility])[address] [place] [address]24og 16-26-887241SmqaqbJuysqqsykt of [place] [facility] Beffev65AqwzdvHqhkvjeioaBerger Hospital30The patient is Moderately Stable - Low risk of patient condition declining or worsening The patient's goals for the shift include Comfort The clinical goals for the shift include VSS, safetyNormalUniversBerger Hospital30NormalUniversBerger HospitalBASIC METABOLIC PANELon 98-71-8411Rdpok gap [Moles/Vol]14 mmol/LNormal7-20UnSycamore Medical CenterComment on above:Performed By: #### [id number] ####[facility] ([facility])[address] [place], [place] [address]Qxlupbn [Mass/Vol]8.0 mg/dLLow8.6-10.3 [facility] HospitalComment on above:Performed By: #### [id number] ####[facility] ([facility])[address] [place], [place] [address]Cjucibhl [Moles/Vol]105 mmol/ZProzlr26-298RwnpbuhxbtSycamore Medical CenterComment on above:Performed By: #### [id number] ####[facility] ([facility])[address] [place], [place] [address]ZR9 [Moles/Vol]26 mmol/ZZcbdmr86-81NlcqdlulbuSycamore Medical CenterComment on above:Performed By: #### [id number] ####[facility] ([facility])[address] [place], [place] [address]Lvweucmglh [Mass/Vol]1.99 mg/dLHigh 0.60-1.20UnSycamore Medical CenterComment on above:Performed By: #### [id number] ####[facility] ([facility])[address] [place], [place] [address]SLZQHLNGMS FILTRATION RATE ML/MIN/1.73 SQ M.ZHBZUHVAU54.9 mL/min/1.73m*2Low>60.0UnSycamore Medical CenterComment on above:Result Comment: [facility]???s estimated glomerular filtration rate (eGFR) will no [...] potential consequences that do not disproportionately affect anyone group of individuals. Performed By: #### [id number] ####[facility] ([facility])[address] [place], [place] [address]Aqeafop [Mass/Vol]80 mg/cGZnegjd96-313DkdaqetchoSycamore Medical CenterComment on above:Performed By: #### [id number] ####[facility] ([facility])[address] [place] [address]Bvwekcjia [Moles/Vol]4.5 mmol/LNormal 3.5-5.1UnSycamore Medical CenterComment on above:Performed By: #### [id number] ####[facility] ([facility])[address] [place] [address]Rhtljt [Moles/Vol]140 mmol/OMdtubu715-012QeouzwuzdgSycamore Medical CenterComment on above:Performed By: #### [id number] ####[facility] ([facility])[address] [facility] [place], [place] [address]Nvmf nitrogen [Mass/Vol]28 mg/dLHigh7-25UnSycamore Medical CenterComment on above:Performed By: #### [id number] ####NEW [facility] ([facility])[address] [place], [place] [address]XNHX NITROGEN/CREATININE (MASS RATIO) IN SER/PLAS14.1NormalUnSycamore Medical CenterComment on above: Performed By: #### [id number] ####[facility] ([facility])[address] [place], [place] [address]GTP WITH AUTO DIFFERENTIALon 59-00-0269Sljvgjrxcjc distribution width (RBC) [Ratio]17.1 %High11.5-15.0UnSycamore Medical CenterComment on above:Performed By: #### [id number] ####[facility] ([facility])[address] [place], [place] [address]GMFPGHCZWWI MEAN CORPUSCULAR HEMOGLOBIN CONCENTRATION (G/DL) BY XPSUDEMGE23.6 g/dLLow32.0-35.0UnSycamore Medical CenterComment on above:Performed By: #### [id number] ####[facility] ([facility])[address] [place], [place] [address]Boxyvdwbfp (Bld) [Volume fraction]29.0 %Low36.0-48.0 [facility] HospitalComment on above:Performed By: #### [id number] ####[facility] ([facility])[address] [place] [address]Ugcpwoxntu (Bld) [Mass/Vol]8.3 g/dLLow12.0-15.0UnSycamore Medical CenterComment on above:Performed By: #### [id number] ####[facility] ([facility])[address] [place] [address]PKVUILLQ PLATELET FRACTION %1.5 %Normal0.8-6.3UnSycamore Medical CenterComment on above:Performed By: #### [id number] ####[facility] ([facility])[address] [place] [address]LRU (RBC) [Entitic mass] 27.8 jjScrpps10.0-33.0UnSycamore Medical CenterComment on above: Performed By: #### [id number] ####[facility] ([facility])[address] [place] [address]MAB (RBC) [Entitic vol]97.0 tZZsdupg40.0-98.0UnSycamore Medical CenterComment on above:Performed By: #### [id number] ####[facility] ([facility])[address] [place] [address]OCTN (PER 100 WBCS) BY AUTOMATED COUNT0.0 %Ryyhmf7LqbmbxoxpxSycamore Medical CenterComment on above: Performed By: #### [id number] ####[facility] ([facility])[address] [place] [address]GVKSFWZKR (10*3/UL) IN BLOOD AUTOMATED [id number] 10*3/uLNormal 150-400UnSycamore Medical CenterComment on above:Performed By: #### [id number] ####[facility] ([facility])[address] [place] [address]HXJ (Bld) [#/Vol]2.99 10*6/uLLow3.80-5.00UnSycamore Medical CenterComment on above:Performed By: #### [id number] ####[facility] ([facility])[address] [place] [address]ULF (Bld) [#/Vol]7.00 10*3/uLNormal4.00-10.60UnSycamore Medical CenterComment on above:Performed By: #### [id number] ####[facility] ([facility])[address] [place] [address]TSXUIQRUAid 02-11-2024 Magnesium [Mass/Vol]2.2 mg/dLNormal1.9-2.7UnSycamore Medical Center Comment on above:Performed By: #### [id number] ####[facility] ([facility])[address] [place] [address]YQMSQS DIFFERENTIALon 51-85-0527KXQSXMOPCMMY PRESENCE IN BLOOD BY LIGHT MICROSCOPYSlightNormalUniversBerger HospitalComment on above:Performed By: #### [id number] ####[facility] ([facility])[address] [place] [address]FAILHAYOL (10*3/UL) IN BLOOD BY CALCULATION0.07 10*3/uLNormal0.00-0.20UnSycamore Medical CenterComment on above:Performed By: #### [id number] ####[facility] ([facility])[address] [place] [address]LHCYLNXCU/100 LEUKOCYTES IN BLOOD BY AUTOMATED COUNT1.0 %Normal0.0-1.0UnSycamore Medical CenterComment on above: Performed By: #### [id number] ####[facility] ([facility])[address] [facility] [place] [address]SHQETUJIFAK (10*3/UL) IN BLOOD BY CALCULATION0.27 10*3/uL Normal0.00-0.50UnSycamore Medical CenterComment on above:Performed By: #### [id number] ####[facility] ([facility])[address] [place] [address] EOSINOPHILS/100 LEUKOCYTES IN BLOOD BY AUTOMATED COUNT3.9 %Normal0.0-6.0 [facility] HospitalComment on above:Performed By: #### [id number] ####[facility] ([facility])[address] [place], [place] [address]DOZYTRNP GRANULOCYTES (10*3/UL) IN BLOOD BY CALCULATION0.34 10*3/uLHigh0.00-0.20 [facility] HospitalComment on above:Performed By: #### [id number] ####[facility] ([facility])[address] [place], [place] [address]SLYBSHAD GRANULOCYTES/100 LEUKOCYTES IN BLOOD BY AUTOMATED COUNT4.9 %High0.0-1.0 [facility] HospitalComment on above:Performed By: #### [id number] ####[facility] ([facility])[address] [place], [place] [address]WGUIRBSDEFF (10*3/UL) IN BLOOD BY CALCULATION1.00 10*3/uLLow1.20-4.00UnSycamore Medical CenterComment on above:Performed By: #### [id number] ####[facility] ([facility])[address] [place], [place] [address]DADEFQBQYNS/100 LEUKOCYTES IN BLOOD BY AUTOMATED COUNT14.3 %Low20.0-45.0UnSycamore Medical CenterComment on above:Performed By: #### [id number] ####[facility] ([facility])[address] [place], [place] [address]QORBYPYLEW (PRESENCE) IN BLOOD BY LIGHT MICROSCOPYSlight NormalUnSycamore Medical CenterComment on above:Performed By: #### [id number] ####[facility] ([facility])[address] [place] [address] MONOCYTES (10*3/UL) IN BLOOD BY CALCUATION0.68 10*3/uLNormal0.10-1.00UnSycamore Medical CenterComment on above:Performed By: #### [id number] ####[facility] ([facility])[address] [place], [place] [address]FMWUMBHEA/100 LEUKOCYTES IN BLOOD BY AUTOMATED COUNT9.7 %Normal5.0-12.0UnSycamore Medical CenterComment on above:Performed By: #### [id number] ####[facility] ([facility])[address] [facility] [place], [place] [address]LRYBRXEVXXO (10*3/UL) IN BLOOD BY CALCULATION4.6 10*3/uLNormal1.6-7.6UnSycamore Medical CenterComment on above:Performed By: #### [id number] ####[facility] ([facility])[address] [facility] [place] [address]WOOXCZDWEPP/100 LEUKOCYTES IN BLOOD BY AUTOMATED COUNT66.2 % Aticqz33.0-72.0UnSycamore Medical CenterComment on above:Performed By: #### [id number] ####[facility] ([facility])[address] [place] [address] POIKILOCYTOSIS (PRESENCE) IN BLOOD BY LIGHT MICROSCOPYSlightNormalUniversBerger HospitalComment on above:Performed By: #### [id number] ####[facility] ([facility])[address] [facility] [place] [address]PRCV GLUCOSE METER UNSOLICITED RESULTSon 14-60-6748Bdyecxw [Mass/Vol]140 mg/cTIrrq07-193ThripdikjmSycamore Medical CenterComment on above:Order Comment: Waived Testing in the ED is performed under the ED CLIA certificate #[id number].Result Comment: [email or web address] Performed By: #### [id number] ####[facility] ([facility])[address] [place], [place] [address]Tdxrlou [Mass/Vol]158 mg/zMGtar21-932NjkkbnivkaSycamore Medical CenterComment on above:Order Comment: Waived Testing in the ED is performed under the ED CLIA certificate #[id number].Result Comment: [email or web address] Performed By: #### [id number] ####[facility] ([facility])[address] [facility] [place], [place] [address]Mmgqdyd [Mass/Vol]164 mg/cURbys86-418EzjqjdsflfSycamore Medical CenterComment on above:Order Comment: Waived Testing in the ED is performed under the ED CLIA certificate #[id number].Result Comment: [email or web address] Performed By: #### [id number] ####[facility] ([facility])[address] [place], [place] [address]Tdmjolx [Mass/Vol]96 mg/gIFharup84-985JyulfhvhvsSycamore Medical CenterComment on above:Order Comment: Waived Testing in the ED is performed under the ED CLIA certificate #[id number].Result Comment: [email or web address] Performed By: #### [id number] ####[facility] ([facility])[address] [place], [place] [address]12qt 98-90-806347EzozqsXaulkbsixr of [place] [facility] Ecjolq07 The patient is Moderately Stable - Low risk of patient condition declining or worsening The patient's goals for the shift include Comfort The clinical goals for the shift include VSS, safetyNormalUniversity of Covenant Children'S HospitalZqqctw53UllxypKeanwkdebc Genesis HospitalBASIC METABOLIC PANELon 33-06-4061Jiehv gap [Moles/Vol]10 mmol/LNormal7-20UnSycamore Medical CenterComment on above:Performed By: #### [id number] ####[facility] ([facility])[address] [place], [place] [address]Swnwyqn [Mass/Vol]8.0 mg/dLLow8.6-10.3 [facility] HospitalComment on above:Performed By: #### [id number] ####[facility] ([facility])[address] [place], [place] [address]Xsratrut [Moles/Vol]106 mmol/NCjxsxv08-233McmwpzmekrSycamore Medical CenterComment on above:Performed By: #### [id number] ####[facility] ([facility])[address] [place], [place] [address]ZY0 [Moles/Vol]29 mmol/FNpcqpj83-83DqieojgcuvSycamore Medical CenterComment on above:Performed By: #### [id number] ####[facility] ([facility])[address] [place], [place] [address]Owjrbablws [Mass/Vol]2.41 mg/dLHigh 0.60-1.20UnSycamore Medical CenterComment on above:Performed By: #### [id number] ####[facility] ([facility])[address] [facility] [address]XOALMFJYWS FILTRATION RATE ML/MIN/1.73 SQ M.BEQABSXSX12.8 mL/min/1.73m*2Low>60.0UnSycamore Medical CenterComment on above:Result Comment: [facility]???s estimated glomerular filtration rate (eGFR) will no [...] potential consequences that do not disproportionately affect anyone group of individuals. Performed By: #### [id number] ####[facility] ([facility])[address] [place], [place] [address]Efgxmse [Mass/Vol]81 mg/sZFdxecv10-351SbzqwlgpdoSycamore Medical CenterComment on above:Performed By: #### [id number] ####[facility] ([facility])[address] [place], [place] [address]Rxvtexnoe [Moles/Vol]4.1 mmol/LNormal 3.5-5.1UnSycamore Medical CenterComment on above:Performed By: #### [id number] ####[facility] ([facility])[address] [place], [place] [address]Jygxin [Moles/Vol]141 mmol/DBkmuab444-249GfakttanxySycamore Medical CenterComment on above:Performed By: #### [id number] ####[facility] ([facility])[address] [place], [place] [address]Pned nitrogen [Mass/Vol]36 mg/dLHigh7-25UnSycamore Medical CenterComment on above:Performed By: #### [id number] ####[facility] ([facility])[address] [place] [address]MBNS NITROGEN/CREATININE (MASS RATIO) IN SER/PLAS14.9NormalUniversBerger HospitalComment on above: Performed By: #### [id number] ####[facility] ([facility])[address] [place] [address]OYD WITH AUTO DIFFERENTIALon 10-21-8205Fwlfnylpa (Bld) [#/Vol]0.05 10*3/uLNormal0.00-0.20UnSycamore Medical CenterComment on above: Performed By: #### [id number] ####[facility] ([facility])[address] [place] [address]Syiwlxtft/100 WBC (Bld)0.7 %Normal0.0-1.0UnSycamore Medical CenterComment on above:Performed By: #### [id number] ####[facility] ([facility])[address] [place], [place] [address]Iljvmfzeufr (Bld) [#/Vol]0.29 10*3/uL Normal0.00-0.50UnSycamore Medical CenterComment on above:Performed By: #### [id number] ####[facility] ([facility])[address] [place] [address] Eosinophils/100 WBC (Bld)4.2 %Normal0.0-6.0UnSycamore Medical Center Comment on above:Performed By: #### [id number] ####[facility] ([facility])[address] [place], [place] [address]Hksfztxhuyi distribution width (RBC) [Ratio]16.9 % High11.5-15.0UnSycamore Medical CenterComment on above:Performed By: #### [id number] ####[facility] ([facility])[address] [place] [address] ERYTHROCYTE MEAN CORPUSCULAR HEMOGLOBIN CONCENTRATION (G/DL) BY IIUXJABHX54.1 g/dLLow32.0-35.0UnSycamore Medical CenterComment on above:Performed By: #### [id number] ####[facility] ([facility])[address] [place], [place] [address]Dhouclanou (Bld) [Volume fraction]28.6 %Low36.0-48.0UnSycamore Medical CenterComment on above:Performed By: #### [id number] ####[facility] ([facility])[address] [place], [place] [address]Dwnbazwfee (Bld) [Mass/Vol]8.6 g/dLLow 12.0-15.0UnSycamore Medical CenterComment on above:Performed By: #### [id number] ####[facility] ([facility])[address] [place] [address]Azpxhmui granulocytes (Bld) [#/Vol]0.32 10*3/uLHigh0.00-0.20UnSycamore Medical CenterComment on above:Performed By: #### [id number] ####[facility] ([facility])[address] [place], [place] [address]Hqyqjeow granulocytes/100 WBC (Bld)4.6 %High0.0-1.0UnSycamore Medical CenterComment on above:Performed By: #### [id number] ####[facility] ([facility])[address] [place] [address] Lymphocytes (Bld) [#/Vol]1.03 10*3/uLLow1.20-4.00UnSycamore Medical CenterComment on above:Performed By: #### [id number] ####[facility] ([facility])[address] [place], [place] [address]Zmykkwxpmeb/100 WBC (Bld)14.9 %Low 20.0-45.0UnSycamore Medical CenterComment on above:Performed By: #### [id number] ####[facility] ([facility])[address] [place] [address]QAT (RBC) [Entitic mass]27.8 hwYwmyqi18.0-33.0UnSycamore Medical Center Comment on above:Performed By: #### [id number] ####[facility] ([facility])[address] [place] [address]YBK (RBC) [Entitic vol]92.6 fSFhjict56.0-98.0 [facility] HospitalComment on above:Performed By: #### [id number] ####[facility] ([facility])[address] [place] [address]Pparggdnd (Bld) [#/Vol]0.59 10*3/uLNormal0.10-1.00UnSycamore Medical CenterComment on above:Performed By: #### [id number] ####[facility] ([facility])[address] [place] [address]Eevfmyncb/100 WBC (Bld)8.5 %Normal5.0-12.0[facility] HospitalComment on above:Performed By: #### [id number] ####[facility] ([facility])[address] [place] [address]Pomwllvbcqy (Bld) [#/Vol] 4.63 10*3/uLNormal1.60-7.60UnSycamore Medical CenterComment on above: Performed By: #### [id number] ####[facility] ([facility])[address] [place] [address]Wnoykgnbkcu/100 WBC (Bld)67.1 %Ejktme72.0-72.0UnSycamore Medical CenterComment on above:Performed By: #### [id number] ####[facility] ([facility])[address] [place] [address]MYRZ (PER 100 WBCS) BY AUTOMATED COUNT0.0 %Lnbrge6NhmlyvelvoSycamore Medical CenterComment on above: Performed By: #### [id number] ####[facility] ([facility])[address] [place] [address]HOQPJYDYT (10*3/UL) IN BLOOD AUTOMATED [id number] 10*3/uLNormal 150-400UnSycamore Medical CenterComment on above:Performed By: #### [id number] ####[facility] ([facility])[address] [place] [address]HAY (Bld) [#/Vol]3.09 10*6/uLLow3.80-5.00UnSycamore Medical CenterComment on above:Performed By: #### [id number] ####[facility] ([facility])[address] [place] [address]BWZ (Bld) [#/Vol]6.91 10*3/uLNormal4.00-10.60UnSycamore Medical CenterComment on above:Performed By: #### [id number] ####[facility] ([facility])[address] [place] [address]DBTDOSDOCaj 02-10-2024 Magnesium [Mass/Vol]2.7 mg/dLNormal1.9-2.7UnSycamore Medical Center Comment on above:Performed By: #### [id number] ####[facility] ([facility])[address] [place] [address]IYLV GLUCOSE METER UNSOLICITED RESULTSon 02-10-2024 Glucose [Mass/Vol]110 mg/hJIowa86-480WnehyfulbbSycamore Medical CenterComment on above:Order Comment: Waived Testing in the ED is performed under the ED CLIA certificate #[id number].Result Comment: nnmqoqe9Klinqgaua By: #### [id number] ####[facility] ([facility])[address] [place] [address]Adxvlom [Mass/Vol]181 mg/bCQgzw51-391SajonsfmrtSycamore Medical CenterComment on above:Order Comment: Waived Testing in the ED is performed under the ED CLIA certificate #[id number].Result Comment: ezkincm5Ddazlnpwv By: #### [id number] ####[facility] ([facility])[address] [place] [address]Otwmops [Mass/Vol]136 mg/pJRzew95-490QmvovrpyvvSycamore Medical CenterComment on above:Order Comment: Waived Testing in the ED is performed under the ED CLIA certificate #[id number].Result Comment: [id number] By: #### [id number] ####[facility] ([facility])[address] [place], [place] [address]Rgflmcz [Mass/Vol]92 mg/bLWgkhyb31-488WzwrkxkzwaSycamore Medical CenterComment on above:Order Comment: Waived Testing in the ED is performed under the ED CLIA certificate #[id number].Result Comment: [id number] By: #### [id number] ####[facility] ([facility])[address] [place], [place] [address]Mwrxjba [Mass/Vol]99 mg/aVYsrrvr22-737XwsshictmySycamore Medical CenterComment on above:Order Comment: Waived Testing in the ED is performed under the ED CLIA certificate #[id number].Result Comment: wxktig99Lwsxpbwmk By: #### [id number] ####[facility] ([facility])[address] [place], [place] [address]yz 02-09-2024 30NormalUniversity [facility]30NormalUniversity [facility] Hospital30NormalUniversity Genesis HospitalBASIC METABOLIC PANELon 65-69-1663Jmqdf gap [Moles/Vol]10 mmol/LNormal7-20UnSycamore Medical CenterComment on above:Performed By: #### [id number] ####[facility] ([facility])[address] [place], [place] [address]Rqfeznk [Mass/Vol]8.1 mg/dLLow8.6-10.3 [facility] HospitalComment on above:Performed By: #### [id number] ####[facility] ([facility])[address] [place], [place] [address]Ssjahtjt [Moles/Vol]104 mmol/KMmkicq31-549GzigkgurhoSycamore Medical CenterComment on above:Performed By: #### [id number] ####[facility] ([facility])[address] [place], [place] [address]SB2 [Moles/Vol]30 mmol/XDodufb19-86UsygsyovosSycamore Medical CenterComment on above:Performed By: #### [id number] ####[facility] ([facility])[address] [place] [address]Goyykotgkg [Mass/Vol]3.10 mg/dLHigh 0.60-1.20UnSycamore Medical CenterComment on above:Performed By: #### [id number] ####[facility] ([facility])[address] [place] [address]EVYDJIXZED FILTRATION RATE ML/MIN/1.73 SQ M.OBYPEBUAQ36.7 mL/min/1.73m*2Low>60.0UnSycamore Medical CenterComment on above:Result Comment: [facility]???s estimated glomerular filtration rate (eGFR) will no [...] potential consequences that do not disproportionately affect anyone group of individuals. Performed By: #### [id number] ####[facility] ([facility])[address] [place] [address]Ritqdlr [Mass/Vol]89 mg/pXXmruwx34-372EhmqjgowqbSycamore Medical CenterComment on above:Performed By: #### [id number] ####[facility] ([facility])[address] [place] [address]Rolodgwyn [Moles/Vol]4.2 mmol/LNormal 3.5-5.1UnSycamore Medical CenterComment on above:Performed By: #### [id number] ####[facility] ([facility])[address] [place] [address]Gyfzku [Moles/Vol]140 mmol/ZCofuxa717-531EfgpbpjvenSycamore Medical CenterComment on above:Performed By: #### [id number] ####[facility] ([facility])[address] [place] [address]Sdof nitrogen [Mass/Vol]45 mg/dLHigh7-25UnSycamore Medical CenterComment on above:Performed By: #### [id number] ####[facility] ([facility])[address] [place] [address]KCZJ NITROGEN/CREATININE (MASS RATIO) IN SER/PLAS14.5NormalUniversBerger HospitalComment on above: Performed By: #### [id number] ####[facility] ([facility])[address] [place] [address]NMY WITH AUTO DIFFERENTIALon 56-62-5392Ixmegbzly (Bld) [#/Vol]0.05 10*3/uLNormal0.00-0.20UnSycamore Medical CenterComment on above: Performed By: #### [id number] ####[facility] ([facility])[address] [place] [address]Uatgzoeda/100 WBC (Bld)0.7 %Normal0.0-1.0UnSycamore Medical CenterComment on above:Performed By: #### [id number] ####[facility] ([facility])[address] [place], [place] [address]Ijuauydraqb (Bld) [#/Vol]0.24 10*3/uL Normal0.00-0.50UnSycamore Medical CenterComment on above:Performed By: #### [id number] ####[facility] ([facility])[address] [place] [address] Eosinophils/100 WBC (Bld)3.1 %Normal0.0-6.0UnSycamore Medical Center Comment on above:Performed By: #### [id number] ####[facility] ([facility])[address] [place], [place] [address]Fvalrbiiqub distribution width (RBC) [Ratio]17.1 % High11.5-15.0UnSycamore Medical CenterComment on above:Performed By: #### [id number] ####[facility] ([facility])[address] [place] [address] ERYTHROCYTE MEAN CORPUSCULAR HEMOGLOBIN CONCENTRATION (G/DL) BY NUAIEUKON47.4 g/dLLow32.0-35.0UnSycamore Medical CenterComment on above:Performed By: #### [id number] ####[facility] ([facility])[address] [place], [place] [address]Rwogjiofxj (Bld) [Volume fraction]27.2 %Low36.0-48.0UnSycam[facility] Medical CenterComment on above:Performed By: #### [id number] ####[facility] ([facility])[address] [place], [place] [address]Lmoaprqgth (Bld) [Mass/Vol]8.0 g/dLLow 12.0-15.0UnSycam[facility] Medical CenterComment on above:Performed By: #### [id number] ####[facility] ([facility])[address] [place], [place] [address]Ggpivsrb granulocytes (Bld) [#/Vol]0.28 10*3/uLHigh0.00-0.20UnSycamore Medical CenterComment on above:Performed By: #### [id number] ####[facility] ([facility])[address] [facility] [place], [place] [address]Mepdymyl granulocytes/100 WBC (Bld)3.7 %High0.0-1.0UnSycamore Medical CenterComment on above:Performed By: #### [id number] ####[facility] ([facility])[address] [place] [address] Lymphocytes (Bld) [#/Vol]0.92 10*3/uLLow1.20-4.00UnSycamore Medical CenterComment on above:Performed By: #### [id number] ####[facility] ([facility])[address] [place], [place] [address]Reigwnewqdp/100 WBC (Bld)12.0 %Low 20.0-45.0UnSycamore Medical CenterComment on above:Performed By: #### [id number] ####[facility] ([facility])[address] [place] [address]JMW (RBC) [Entitic mass]27.4 mnElubao22.0-33.0Un[facility] Comment on above:Performed By: #### [id number] ####[facility] ([facility])[address] [place] [address]FGA (RBC) [Entitic vol]93.2 dUFsgtfz32.0-98.0 [facility] HospitalComment on above:Performed By: #### [id number] ####[facility] ([facility])[address] [place] [address]Wrdmniclb (Bld) [#/Vol]0.65 10*3/uLNormal0.10-1.00UnSycamore Medical CenterComment on above:Performed By: #### [id number] ####[facility] ([facility])[address] [place] [address]Zowsxuzvb/100 WBC (Bld)8.5 %Normal5.0-12.0UnSycamore Medical CenterComment on above:Performed By: #### [id number] ####[facility] ([facility])[address] [address] [place] [address]Egsqpzsakrs (Bld) [#/Vol] 5.79 10*3/uLNormal1.60-7.60UnSycamore Medical CenterComment on above: Performed By: #### [id number] ####[facility] ([facility])[address] [place] [address]Awlrzqupwmv/100 WBC (Bld)75.7 %High40.0-72.0UnSycamore Medical CenterComment on above:Performed By: #### [id number] ####[facility] ([facility])[address] [place] [address]NIYS (PER 100 WBCS) BY AUTOMATED COUNT0.0 %Zxtxbo7DticwqjyhvSycamore Medical CenterComment on above: Performed By: #### [id number] ####[facility] ([facility])[address] [place] [address]OPLBGPKJW (10*3/UL) IN BLOOD AUTOMATED EQPMU157 10*3/uLNormal 150-400UnSycamore Medical CenterComment on above:Performed By: #### [id number] ####[facility] ([facility])[address] [place] [address]BBZ (Bld) [#/Vol]2.92 10*6/uLLow3.80-5.00UnSycamore Medical CenterComment on above:Performed By: #### [id number] ####[facility] ([facility])[address] [place] [address]RIZ (Bld) [#/Vol]7.65 10*3/uLNormal4.00-10.60UnSycamore Medical CenterComment on above:Performed By: #### [id number] ####[facility] ([facility])[address] [place] [address]EDMCPRLgb 02-09-2024 CONSULTNormalUniversity Genesis HospitalMAGNESIUMon 90-94-7700Nwperjuqp [Mass/Vol]3.2 mg/dLHigh1.9-2.7UnSycamore Medical CenterComment on above:Performed By: #### [id number] ####[facility] ([facility])[address] [place] [address]IHQR GLUCOSE METER UNSOLICITED RESULTSon 94-72-1990Wyqxwkr [Mass/Vol]173 mg/pMPwfv55-848BjgjfzovbmSycamore Medical CenterComment on above:Order Comment: Waived Testing in the ED is performed under the ED CLIA certificate #[id number].Result Comment: adljlz30Vvqjcreld By: #### [id number] ####[facility] ([facility])[address] [place] [address]Ekrsjxu [Mass/Vol]201 mg/bEZzvd32-111TwjocgcttcSycamore Medical CenterComment on above:Order Comment: Waived Testing in the ED is performed under the ED CLIA certificate #[id number].Result Comment: bfloodPerformed By: #### [id number] ####[facility] ([facility])[address] [place], [place] [address]Deyfuhn [Mass/Vol]118 mg/hRQyqu93-580EydrlgizepSycamore Medical CenterComment on above:Order Comment: Waived Testing in the ED is performed under the ED CLIA certificate #[id number].Result Comment: jcwjaoc1Fjlwcksyo By: #### [id number] ####[facility] ([facility])[address] [place], [place] [address]Rxtxste [Mass/Vol]129 mg/tDObxf84-670OkaekzmwsoSycamore Medical CenterComment on above:Order Comment: Waived Testing in the ED is performed under the ED CLIA certificate #[id number].Result Comment: fdafp2Hatzduywz By: #### [id number] ####[facility] ([facility])[address] [place], [place] [address]md 02-08-2024 30NormalUniversity Genesis Hospital30NormalUniversBerger HospitalBASIC METABOLIC PANELon 38-87-0616Fbcds gap [Moles/Vol]10 mmol/LNormal7-20 [facility] HospitalComment on above:Performed By: #### [id number] ####[facility] ([facility])[address] [place], [place] [address]Ggsxxya [Mass/Vol]8.3 mg/dLLow8.6-10.3UnSycamore Medical CenterComment on above:Performed By: #### [id number] ####[facility] ([facility])[address] [place], [place] [address]Fmvauzgz [Moles/Vol]101 mmol/KSuxood84-569LqlkokfazqSycamore Medical CenterComment on above:Performed By: #### [id number] ####[facility] ([facility])[address] [place] [address]JG5 [Moles/Vol]30 mmol/LNormal 21-31UnSycamore Medical CenterComment on above:Performed By: #### [id number] ####[facility] ([facility])[address] [place], [place] [address]Hynlmtqlxo [Mass/Vol]3.65 mg/dLHigh0.60-1.20UnSycamore Medical CenterComment on above:Performed By: #### [id number] ####[facility] ([facility])[address] [place] [address]MHURIBSAUQ FILTRATION RATE ML/MIN/1.73 SQ M.BULDVJVYJ23.0 mL/min/1.73m*2Low>60.0UnSycamore Medical CenterComment on above:Result Comment: [facility]???s estimated glomerular filtration rate (eGFR) will no [...] potential consequences that do not disproportionately affect anyone group of individuals.Performed By: #### [id number] ####[facility] ([facility])[address] [place] [address]Idfthoq [Mass/Vol]102 mg/vBIouz08-916OnivhleageSycamore Medical CenterComment on above:Performed By: #### [id number] ####[facility] ([facility])[address] [place] [address]Bbiafsqvf [Moles/Vol]4.2 mmol/L Normal3.5-5.1UnSycamore Medical CenterComment on above:Performed By: #### [id number] ####[facility] ([facility])[address] [place] [address] Sodium [Moles/Vol]137 mmol/MTeyasb937-813LvmqbgbmqgSycamore Medical Center Comment on above:Performed By: #### [id number] ####[facility] ([facility])[address] [place], [place] [address]Fzfh nitrogen [Mass/Vol]50 mg/dLHigh7-25UnSycamore Medical CenterComment on above:Performed By: #### [id number] ####[facility] ([facility])[address] [place], [place] [address]EKWL NITROGEN/CREATININE (MASS RATIO) IN SER/PLAS13.7NormalUniversBerger HospitalComment on above:Performed By: #### [id number] ####[facility] ([facility])[address] [place], [place] [address]OTX WITH AUTO DIFFERENTIALon 44-67-2637Fmeclpzxp (Bld) [#/Vol]0.03 10*3/uLNormal0.00-0.20UnSycamore Medical CenterComment on above:Performed By: #### [id number] ####[facility] ([facility])[address] [place], [place] [address]Goqzxtfjq/100 WBC (Bld)0.4 %Normal0.0-1.0UnSycamore Medical CenterComment on above:Performed By: #### [id number] ####[facility] ([facility])[address] [place], [place] [address]Rkghipxjwui (Bld) [#/Vol]0.20 10*3/uL Normal0.00-0.50UnSycamore Medical CenterComment on above:Performed By: #### [id number] ####[facility] ([facility])[address] [place] [address] Eosinophils/100 WBC (Bld)2.9 %Normal0.0-6.0UnSycamore Medical Center Comment on above:Performed By: #### [id number] ####[facility] ([facility])[address] [place], [place] [address]Luvrfxswndh distribution width (RBC) [Ratio]16.9 % High11.5-15.0UnSycamore Medical CenterComment on above:Performed By: #### [id number] ####[facility] ([facility])[address] [place] [address] ERYTHROCYTE MEAN CORPUSCULAR HEMOGLOBIN CONCENTRATION (G/DL) BY LCZUTOPRJ17.8 g/dLLow32.0-35.0University [facility]arcenas Medical CenterComment on above:Performed By: #### [id number] ####[facility] ([facility])[address] [place], [place] [address]Lvbtnljewx (Bld) [Volume fraction]25.3 %Low36.0-48.0UnSycamore Medical CenterComment on above:Performed By: #### [id number] ####[facility] ([facility])[address] [place], [place] [address]Sdedzdjfqr (Bld) [Mass/Vol]7.8 g/dLLow 12.0-15.0UnSycamore Medical CenterComment on above:Performed By: #### [id number] ####[facility] ([facility])[address] [place], [place] [address]Vjenrzqn granulocytes (Bld) [#/Vol]0.23 10*3/uLHigh0.00-0.20UnSycamore Medical CenterComment on above:Performed By: #### [id number] ####[facility] ([facility])[address] [place], [place] [address]Fuxlmhxk granulocytes/100 WBC (Bld)3.3 %High0.0-1.0UnSycamore Medical CenterComment on above:Performed By: #### [id number] ####[facility] ([facility])[address] [place] [address] Lymphocytes (Bld) [#/Vol]0.80 10*3/uLLow1.20-4.00UnSycamore Medical CenterComment on above:Performed By: #### [id number] ####[facility] ([facility])[address] [place], [place] [address]Kagtlmgdkxb/100 WBC (Bld)11.5 %Low 20.0-45.0UnSycamore Medical CenterComment on above:Performed By: #### [id number] ####[facility] ([facility])[address] [place], [place] [address]LSH (RBC) [Entitic mass]28.3 iaBjtveq48.0-33.0UnSycamore Medical Center Comment on above:Performed By: #### [id number] ####[facility] ([facility])[address] [place] [address]PXR (RBC) [Entitic vol]91.7 fQZuzjrc01.0-98.0 [facility] HospitalComment on above:Performed By: #### [id number] ####[facility] ([facility])[address] [place] [address]Tafyekktk (Bld) [#/Vol]0.63 10*3/uLNormal0.10-1.00UnSycamore Medical CenterComment on above:Performed By: #### [id number] ####[facility] ([facility])[address] [place] [address]Ojysetqas/100 WBC (Bld)9.0 %Normal5.0-12.0UnSycamore Medical CenterComment on above:Performed By: #### [id number] ####[facility] ([facility])[address] [place] [address]Uidrbbvozav (Bld) [#/Vol] 5.32 10*3/uLNormal1.60-7.60UnSycamore Medical CenterComment on above: Performed By: #### [id number] ####[facility] ([facility])[address] [place] [address]Yrkxzmtumrf/100 WBC (Bld)76.2 %High40.0-72.0UnSycamore Medical CenterComment on above:Performed By: #### [id number] ####[facility] ([facility])[address] [place] [address]GJXO (PER 100 WBCS) BY AUTOMATED COUNT0.0 %Faunww1MrxjupqdhiSycamore Medical CenterComment on above: Performed By: #### [id number] ####[facility] ([facility])[address] [place] [address]JJNHOEHFP (10*3/UL) IN BLOOD AUTOMATED RKLLU043 10*3/uLNormal 150-400UnSycamore Medical CenterComment on above:Performed By: #### [id number] ####[facility] ([facility])[address] [place] [address]BBG (Bld) [#/Vol]2.76 10*6/uLLow3.80-5.00UnSycamore Medical CenterComment on above:Performed By: #### [id number] ####[facility] ([facility])[address] [place] [address]ECG (Bld) [#/Vol]6.98 10*3/uLNormal4.00-10.60UnSycamore Medical CenterComment on above:Performed By: #### [id number] ####[facility] ([facility])[address] [place] [address]EEPOZETJPqe 02-08-2024 Magnesium [Mass/Vol]3.6 mg/dLHigh1.9-2.7UnSycamore Medical Center Comment on above:Performed By: #### [id number] ####[facility] ([facility])[address] [place] [address]NSRQPLZQvp 74-81-9909KDQXSBMCWdwjctEaigrthjxz of [facility] Medical CenterPOCT GLUCOSE METER UNSOLICITED RESULTSon 82-65-5637Ykcrmst [Mass/Vol]160 mg/rFIhmf52-019KnvozfbvfkSycamore Medical CenterComment on above:Order Comment: Waived Testing in the ED is performed under the ED CLIA certificate #[id number].Result Comment: iwxkd6Jqwvvewbj By: #### [id number] ####[facility] ([facility])[address] [place] [address]Wolgeel [Mass/Vol]128 mg/sALyie51-605TyfkhawzqrSycamore Medical CenterComment on above:Order Comment: Waived Testing in the ED is performed under the ED CLIA certificate #[id number].Result Comment: rvka5Lvokmjzva By: #### [id number] ####[facility] ([facility])[address] [place] [address]ej 02-07-2024 30NormalUniversBerger Hospital30NormalUniversBerger HospitalB-TYPE NATRIURETIC PEPTIDEon 78-50-0594Wejhyklozlh peptide B (Bld) [Mass/Vol]1210 pg/mLHigh0-100UnSycamore Medical CenterComment on above:Performed By: #### [id number] ####[facility] ([facility])[address] [place] [address]AEJNR METABOLIC PANELon 18-43-7233Etzmz gap [Moles/Vol]13 mmol/LNormal7-20UnSycamore Medical CenterComment on above:Performed By: #### [id number] ####[facility] ([facility])[address] [place] [address] Calcium [Mass/Vol]8.2 mg/dLLow8.6-10.3UnSycamore Medical CenterComment on above:Performed By: #### [id number] ####[facility] ([facility])[address] [place] [address]Gzmxpqpw [Moles/Vol]100 mmol/BNilcoc53-041ZpxjyyqpnsSycamore Medical CenterComment on above:Performed By: #### [id number] ####[facility] ([facility])[address] [place] [address]RA4 [Moles/Vol]29 mmol/LNormal 21-31UnSycamore Medical CenterComment on above:Performed By: #### [id number] ####[facility] ([facility])[address] [place] [address]Sogzdydcro [Mass/Vol]3.57 mg/dLHigh0.60-1.20UnSycamore Medical CenterComment on above:Performed By: #### [id number] ####[facility] ([facility])[address] [place] [address]HZRYUNLJKH FILTRATION RATE ML/MIN/1.73 SQ M.LTHBQCAEN69.4 mL/min/1.73m*2Low>60.0UnSycamore Medical CenterComment on above:Result Comment: [facility]???s estimated glomerular filtration rate (eGFR) will no [...] potential consequences that do not disproportionately affect anyone group of individuals.Performed By: #### [id number] ####[facility] ([facility])[address] [place], [place] [address]Ffaikop [Mass/Vol]107 mg/hHXfcj44-768TanxurmfxwSycamore Medical CenterComment on above:Performed By: #### [id number] ####[facility] ([facility])[address] [place], [place] [address]Hrzuyavos [Moles/Vol]4.0 mmol/L Normal3.5-5.1UnSycamore Medical CenterComment on above:Performed By: #### [id number] ####[facility] ([facility])[address] [place] [address] Sodium [Moles/Vol]138 mmol/PNzylbu450-446OhltmijamxSycamore Medical Center Comment on above:Performed By: #### [id number] ####[facility] ([facility])[address] [place], [place] [address]Wwxp nitrogen [Mass/Vol]48 mg/dLHigh7-25UnSycamore Medical CenterComment on above:Performed By: #### [id number] ####[facility] ([facility])[address] [place], [place] [address]MUCW NITROGEN/CREATININE (MASS RATIO) IN SER/PLAS13.4NormalUniversBerger HospitalComment on above:Performed By: #### [id number] ####[facility] ([facility])[address] [place], [place] [address]UJG WITH AUTO DIFFERENTIALon 72-22-3553Sjisinwer (Bld) [#/Vol]0.02 10*3/uLNormal0.00-0.20UnSycamore Medical CenterComment on above:Performed By: #### [id number] ####[facility] ([facility])[address] [place], [place] [address]Ciogphjao/100 WBC (Bld)0.3 %Normal0.0-1.0UnSycamore Medical CenterComment on above:Performed By: #### [id number] ####[facility] ([facility])[address] [place], [place] [address]Nrtwbsqsziy (Bld) [#/Vol]0.01 10*3/uL Normal0.00-0.50UnSycamore Medical CenterComment on above:Performed By: #### [id number] ####[facility] ([facility])[address] [place] [address] Eosinophils/100 WBC (Bld)0.1 %Normal0.0-6.0UnSycamore Medical Center Comment on above:Performed By: #### [id number] ####[facility] ([facility])[address] [place], [place] [address]Bjbpumklhuf distribution width (RBC) [Ratio]16.9 % High11.5-15.0UnSycamore Medical CenterComment on above:Performed By: #### [id number] ####[facility] ([facility])[address] [place] [address] ERYTHROCYTE MEAN CORPUSCULAR HEMOGLOBIN CONCENTRATION (G/DL) BY NKPYPCOEW15.5 g/dLLow32.0-35.0UnSycamore Medical CenterComment on above:Performed By: #### [id number] ####[facility] ([facility])[address] [place], [place] [address]Jjvrrcogbx (Bld) [Volume fraction]24.6 %Low36.0-48.0UnSycamore Medical CenterComment on above:Performed By: #### [id number] ####[facility] ([facility])[address] [place], [place] [address]Nyldtuzpbp (Bld) [Mass/Vol]7.5 g/dLLow 12.0-15.0UnSycamore Medical CenterComment on above:Performed By: #### [id number] ####[facility] ([facility])[address] [facility] [place], [place] [address]Pxcjjwwj granulocytes (Bld) [#/Vol]0.09 10*3/uLNormal0.00-0.20UnSycamore Medical CenterComment on above:Performed By: #### [id number] ####[facility] ([facility])[address] [place], [place] [address]Femttizd granulocytes/100 WBC (Bld)1.2 %High0.0-1.0UnSycamore Medical CenterComment on above:Performed By: #### [id number] ####[facility] ([facility])[address] [address] Lymphocytes (Bld) [#/Vol]0.66 10*3/uLLow1.20-4.00UnSycamore Medical CenterComment on above:Performed By: #### [id number] ####[facility] ([facility])[address] [place] [facility] [address]Vxjindgfojv/100 WBC (Bld)8.6 %Low 20.0-45.0UnSycamore Medical CenterComment on above:Performed By: #### [id number] ####[facility] ([facility])[address] [place] [facility] [address]BOY (RBC) [Entitic mass]27.7 tmCuilrk96.0-33.0UnSycamore Medical Center Comment on above:Performed By: #### [id number] ####[facility] ([facility])[address] [facility] [place] [address]VUB (RBC) [Entitic vol]90.8 wYBidrph58.0-98.0 [facility] HospitalComment on above:Performed By: #### [id number] ####[facility] ([facility])[address] [place] [facility] [address]Dnbcuiiel (Bld) [#/Vol]0.50 10*3/uLNormal0.10-1.00UnSycamore Medical CenterComment on above:Performed By: #### [id number] ####[facility] ([facility])[address] [place] [address]Eodgtmmgr/100 WBC (Bld)6.5 %Normal5.0-12.0UnSycamore Medical CenterComment on above:Performed By: #### [id number] ####[facility] ([facility])[address] [place] [address]Oxlfsopjawn (Bld) [#/Vol] 6.50 10*3/uLNormal1.60-7.60UnSycamore Medical CenterComment on above: Performed By: #### [id number] ####[facility] ([facility])[address] [place] [address]Xupmbejvkcy/100 WBC (Bld)84.5 %High40.0-72.0UnSycamore Medical CenterComment on above:Performed By: #### [id number] ####[facility] ([facility])[address] [place] [address]KNHK (PER 100 WBCS) BY AUTOMATED COUNT0.0 %Rtvvbz6NajpnrvsmaSycamore Medical CenterComment on above: Performed By: #### [id number] ####[facility] ([facility])[address] [place] [address]KEVWXCOWU (10*3/UL) IN BLOOD AUTOMATED FQMWT022 10*3/uLNormal 150-400UnSycamore Medical CenterComment on above:Performed By: #### [id number] ####[facility] ([facility])[address] [place], [place] [address]NXI (Bld) [#/Vol]2.71 10*6/uLLow3.80-5.00UnSycamore Medical CenterComment on above:Performed By: #### [id number] ####[facility] ([facility])[address] [place], [place] [address]XDA (Bld) [#/Vol]7.69 10*3/uLNormal4.00-10.60UnSycamore Medical CenterComment on above:Performed By: #### [id number] ####[facility] ([facility])[address] [place] [address]ITSCMBTBBvf 02-07-2024 Magnesium [Mass/Vol]3.7 mg/dLHigh1.9-2.7[facility] Comment on above:Performed By: #### [id number] ####[facility] ([facility])[address] [place] [address]WJWQ GLUCOSE METER UNSOLICITED RESULTSon 02-07-2024 Glucose [Mass/Vol]141 mg/aIBavm55-913DjxcvexbiiSycamore Medical CenterComment on above:Order Comment: Waived Testing in the ED is performed under the ED CLIA certificate #[id number].Result Comment: sywcilz5Bkxlaxity By: #### [id number] ####[facility] ([facility])[address] [place] [address]Zgqgusz [Mass/Vol]133 mg/pDWimo80-341XaublfmpnbSycamore Medical CenterComment on above:Order Comment: Waived Testing in the ED is performed under the ED CLIA certificate #[id number].Result Comment: iwrdhbw0Rulrqaawy By: #### [id number] ####[facility] ([facility])[address] [place] [address]Csbnltq [Mass/Vol]127 mg/qSZkfc66-279SygfvzxwmdSycamore Medical CenterComment on above:Order Comment: Waived Testing in the ED is performed under the ED CLIA certificate #[id number].Result Comment: kmkwzpy8Woaweqoml By: #### [id number] ####[facility] ([facility])[address] [place] [address]xg 02-06-2024 30NormalUniversBerger Hospital30NormalUniversity Genesis HospitalBASIC METABOLIC PANELon 69-87-7411Qjaor gap [Moles/Vol]17 mmol/LNormal7-20 [facility] HospitalComment on above:Performed By: #### [id number] ####[facility] ([facility])[address] [place], [place] [address]Uarzmgf [Mass/Vol]8.2 mg/dLLow8.6-10.3UnSycamore Medical CenterComment on above:Performed By: #### [id number] ####[facility] ([facility])[address] [place], [place] [address]Ceuyrchk [Moles/Vol]100 mmol/UKqlcok26-133FwvaeotildSycamore Medical CenterComment on above:Performed By: #### [id number] ####[facility] ([facility])[address] [place], [place] [address]RU9 [Moles/Vol]25 mmol/LNormal 21-31UnSycamore Medical CenterComment on above:Performed By: #### [id number] ####[facility] ([facility])[address] [place], [place] [address]Nqplsdbvga [Mass/Vol]3.14 mg/dLHigh0.60-1.20UnSycamore Medical CenterComment on above:Performed By: #### [id number] ####[facility] ([facility])[address], [place] [address]DKFAWQZUCF FILTRATION RATE ML/MIN/1.73 SQ M.AECHWZMTM44.4 mL/min/1.73m*2Low>60.0UnSycamore Medical CenterComment on above:Result Comment: [facility]???s estimated glomerular filtration rate (eGFR) will no [...] potential consequences that do not disproportionately affect anyone group of individuals.Performed By: #### [id number] ####[facility] ([facility])[address], [place] [address]Ipknlle [Mass/Vol]97 mg/vGRaxitw05-306Sqxmqynldo of Barcenas Medical CenterComment on above:Performed By: #### [id number] ####[facility] ([facility])[address] [place] [address]Rqfsumeyw [Moles/Vol]4.3 mmol/LNormal3.5-5.1UnSycamore Medical CenterComment on above:Performed By: #### [id number] ####[facility] ([facility])[address] [place] [address] Sodium [Moles/Vol]138 mmol/HDycelq395-067ZpmjjxknppSycamore Medical Center Comment on above:Performed By: #### [id number] ####[facility] ([facility])[address] [place] [address]Meeg nitrogen [Mass/Vol]37 mg/dLHigh7-25UnSycamore Medical CenterComment on above:Performed By: #### [id number] ####[facility] ([facility])[address] [place], [place] [address]HWHA NITROGEN/CREATININE (MASS RATIO) IN SER/PLAS11.8NormalUniversBerger HospitalComment on above:Performed By: #### [id number] ####[facility] ([facility])[address] [place] [address]UIO WITH AUTO DIFFERENTIALon [id number] (Bld) [#/Vol]0.01 10*3/uLNormal0.00-0.20UnSycamore Medical CenterComment on above:Performed By: #### [id number] ####[facility] ([facility])[address] [place] [address]Cmbrtaglt/100 WBC (Bld)0.1 %Normal0.0-1.0UnSycamore Medical CenterComment on above:Performed By: #### [id number] ####[facility] ([facility])[address] [place] [address]Alaqqowbobd (Bld) [#/Vol]0.00 10*3/uL Normal0.00-0.50UnSycamore Medical CenterComment on above:Performed By: #### [id number] ####[facility] ([facility])[address] [place] [address] Eosinophils/100 WBC (Bld)0.0 %Normal0.0-6.0UnSycamore Medical Center Comment on above:Performed By: #### [id number] ####[facility] ([facility] [facility])[address] [place], [place] [address]Rlymasxgvry distribution width (RBC) [Ratio]16.2 % High11.5-15.0UnSycamore Medical CenterComment on above:Performed By: #### [id number] ####[facility] ([facility])[address] [place] [address] ERYTHROCYTE MEAN CORPUSCULAR HEMOGLOBIN CONCENTRATION (G/DL) BY XHMSWICNZ20.7 g/dLLow32.0-35.0UnSycamore Medical CenterComment on above:Performed By: #### [id number] ####[facility] ([facility])[address] [place], [place] [address]Ziifwrfsbp (Bld) [Volume fraction]25.7 %Low36.0-48.0UnSycamore Medical CenterComment on above:Performed By: #### [id number] ####[facility] ([facility])[address] [place], [place] [address]Pcpdsrfstz (Bld) [Mass/Vol]7.9 g/dLLow 12.0-15.0UnSycamore Medical CenterComment on above:Performed By: #### [id number] ####[facility] ([facility])[address] [place], [place] [address]Rgisdoeg granulocytes (Bld) [#/Vol]0.07 10*3/uLNormal0.00-0.20UnSycamore Medical CenterComment on above:Performed By: #### [id number] ####[facility] ([facility])[address] [place], [place] [address]Aplszckl granulocytes/100 WBC (Bld)0.9 %Normal0.0-1.0UnSycamore Medical CenterComment on above:Performed By: #### [id number] ####[facility] ([facility])[address] [place] [address] Lymphocytes (Bld) [#/Vol]0.46 10*3/uLLow1.20-4.00UnSycamore Medical CenterComment on above:Performed By: #### [id number] ####[facility] ([facility])[address] [place], [place] [address]Vqsbclkndde/100 WBC (Bld)6.2 %Low 20.0-45.0UnSycamore Medical CenterComment on above:Performed By: #### [id number] ####[facility] ([facility])[address] [place], [place] [address]LBL (RBC) [Entitic mass]27.9 suCqmlpk96.0-33.0UnSycamore Medical Center Comment on above:Performed By: #### [id number] ####[facility] ([facility])[address] [place], [place] [address]HHA (RBC) [Entitic vol]90.8 rHMyqbcg98.0-98.0 [facility] HospitalComment on above:Performed By: #### [id number] ####[facility] ([facility])[address] [place], [place] [address]Fkqnilqvp (Bld) [#/Vol]0.19 10*3/uLNormal0.10-1.00UnSycamore Medical CenterComment on above:Performed By: #### [id number] ####[facility] ([facility])[address] [place], [place] [address]Xojfqwoks/100 WBC (Bld)2.6 %Low5.0-12.0UnSycamore Medical CenterComment on above:Performed By: #### [id number] ####[facility] ([facility])[address] [facility], [place] [address]Ojdodjrzvze (Bld) [#/Vol]6.77 10*3/uL Normal1.60-7.60UnSycamore Medical CenterComment on above:Performed By: #### [id number] ####[facility] ([facility])[address] [place] [address] Neutrophils/100 WBC (Bld)91.1 %High40.0-72.0UnSycamore Medical Center Comment on above:Performed By: #### [id number] ####[facility] ([facility])[address] [place] [address]JPUG (PER 100 WBCS) BY AUTOMATED COUNT0.0 %Normal0 [facility] HospitalComment on above:Performed By: #### [id number] ####[facility] ([facility])[address] [place] [address]HPDKYEZQW (10*3/UL) IN BLOOD AUTOMATED DMNST613 10*3/jPJmsoxf292-719EjonfkzkajSycamore Medical CenterComment on above:Performed By: #### [id number] ####[facility] ([facility])[address] [place] [address]IYG (Bld) [#/Vol]2.83 10*6/uLLow 3.80-5.00UnSycamore Medical CenterComment on above:Performed By: #### [id number] ####[facility] ([facility])[address] [place] [address]PHZ (Bld) [#/Vol]7.43 10*3/uLNormal4.00-10.60UnSycamore Medical Center Comment on above:Performed By: #### [id number] ####[facility] ([facility])[address] [place] [address]LCKEWBAaf 12-66-5232TXUWEYEUvjuofWwwywmaktq of [place] Medical CenterCREATININE, URINE, RANDOMon 93-01-4941Ogcnkcbfww (U) [Mass/Vol]82.0 mg/jPDmuvet34-004XtzfnwtpqlSycamore Medical CenterComment on above:Performed By: #### [id number] ####[facility] ([facility])[address] [place] [address]BGNVMO ACID, PLASMAon 12-58-0052PNZTBHY (MMOL/L) IN SER/PLAS 0.4 mmol/LLow0.5-2.2UnSycamore Medical CenterComment on above: Performed By: #### [id number] ####[facility] ([facility])[address] [place] [address]IZFVFUAEDsj 28-57-7592Gnqvyqryi [Mass/Vol]3.6 mg/dLHigh1.9-2.7 [facility] HospitalComment on above:Performed By: #### [id number] ####[facility] ([facility])[address] [place] [address]GOWSPBLXvm 52-29-3881LYMWIBXKXwaoatMpfadnshxv Genesis HospitalNURSNOTENormal [facility] Memorial HospitalPOCT GLUCOSE METER UNSOLICITED RESULTSon 85-53-5147Cbchfxd [Mass/Vol]150 mg/iQQnjq56-633HkdlukbfjeSycamore Medical CenterComment on above:Order Comment: Waived Testing in the ED is performed under the ED CLIA certificate #[id number].Result Comment: lcqq2Pmvvhlzek By: #### [id number] ####[facility] ([facility])[address] [place] [address] Glucose [Mass/Vol]195 mg/bDUuxs12-211RyqxhdhejdSycamore Medical CenterComment on above:Order Comment: Waived Testing in the ED is performed under the ED CLIA certificate #[id number].Result Comment: zcvcgfw7Gemhusjkm By: #### [id number] ####[facility] ([facility])[address] [place], [place] [address]Uzfuvxg [Mass/Vol]123 mg/jCIvlp82-625BnntvgpdqtSycamore Medical CenterComment on above:Order Comment: Waived Testing in the ED is performed under the ED CLIA certificate #[id number].Result Comment: komitnt5Wpnyzlhnx By: #### [id number] ####[facility] ([facility])[address] [place], [place] [address]Pfvnkvp [Mass/Vol]130 mg/vKEhsx20-062OizelqhmtbSycamore Medical CenterComment on above:Order Comment: Waived Testing in the ED is performed under the ED CLIA certificate #[id number].Result Comment: [id number] By: #### [id number] ####[facility] ([facility])[address] [place], [place] [address]Lvdaang [Mass/Vol]122 mg/eAMjud95-777IprnlllduvSycamore Medical CenterComment on above:Order Comment: Waived Testing in the ED is performed under the ED CLIA certificate #[id number].Result Comment: ilue3Zmghvbprn By: #### [id number] ####[facility] ([facility])[address] [place], [place] [address]VFVMVM, URINE, RANDOMon 24-63-0030Tjpqxa (U) [Moles/Vol]45 mmol/LNormalUnSycamore Medical CenterComment on above:Performed By: #### [id number] ####[facility] ([facility])[address] [place], [place] [address]UJDSCQDSVK WITH MICROSCOPICon 54-28-3502UNHSDZWJN, TOTAL PRESENCE IN URINENegativeNormalNegativeUnSycamore Medical CenterComment on above:Performed By: #### [id number] ####[facility] ([facility])[address] [place], [place] [address]Ftgmdhu (U)CloudyAbnormal ClearUnSycamore Medical CenterComment on above:Performed By: #### [id number] ####[facility] ([facility])[address] [place], [place] [address]Uvsgy (U)YellowNormalColorless, Yellow, Light-YellowUnSycamore Medical CenterComment on above:Performed By: #### [id number] ####[facility] ([facility])[address] [place], [place] [address]CCVXYWL (MG/DL) IN URINENormalNormal NormalUnSycamore Medical CenterComment on above:Performed By: #### [id number] ####[facility] ([facility])[address] [place] [address] HEMOGLOBIN PRESENCE IN URINEModerateAbnormalNegativeUnSycamore Medical CenterComment on above:Performed By: #### [id number] ####[facility] ([facility])[address] [place], [place] [address]Tlwttdq Ql (U)TraceAbnormalNegative [facility] HospitalComment on above:Performed By: #### [id number] ####[facility] ([facility])[address] [place], [place] [address]SDUAICDVU ESTERASE PRESENCE IN URINE BY TEST STRIPNegativeNormalNegativeUnSycamore Medical CenterComment on above:Performed By: #### [id number] ####[facility] ([facility])[address] [place], [place] [address]GPEWE (#/LPF) IN URINE SEDIMENTOccasionalNormalNone Seen, Occasional, FewUnSycamore Medical CenterComment on above:Performed By: #### [id number] ####[facility] ([facility])[address] [place], [place] [address]YLVCDQM PRESENCE IN URINENegative NormalNegativeUnSycamore Medical CenterComment on above:Performed By: #### [id number] ####[facility] ([facility])[address] [place], [place] [address]xG (U)5.5 [pH]Normal5.0-8.0UnSycamore Medical CenterComment on above: Performed By: #### [id number] ####[facility] ([facility])[address] [place], [place] [address]Rdvooui (U) [Mass/Vol]30 mg/dLAbnormalNegativeGreene Memorial HospitalComment on above:Performed By: #### [id number] ####[facility] ([facility])[address] [place], [place] [address]NJG (#/HPF) IN URINE SEDIMENT>20AbnormalNone Seen, 0-2UnSycamore Medical CenterComment on above:Performed By: #### [id number] ####[facility] ([facility])[address] [place], [place] [address]Ozqbquwl gravity (U) [Rel density]>1.262Bmvl7.010-1.030 [facility] HospitalComment on above:Performed By: #### [id number] ####[facility] ([facility])[address] [place], [place] [address]KLTHNONU EPITHELIAL CELLS (#/LPF) IN URINE SEDIMENTOccasionalNormalNone Seen, Occasional, FewUnSycamore Medical CenterComment on above:Performed By: #### [id number] ####[facility] ([facility])[address] [place] [address] UROBILINOGEN (MG/DL) IN URINENormalNormalNormalUniversBerger HospitalComment on above:Performed By: #### [id number] ####[facility] ([facility])[address] [place], [place] [address]YVO (LEUKOCYTE) (#/HPF) IN URINE SEDIMENT6-10AbnormalNone Seen, 0-2UnSycamore Medical CenterComment on above:Performed By: #### [id number] ####[facility] ([facility])[address] [place], [place] [address]gn 80-58-[address]YlccbhWmzjznsukw of [facility] Syokew22 NormalUnSycamore Medical CenterANESon 58-58-6165THNBBtjqptHtreyubbmz Genesis HospitalBASIC METABOLIC PANELon 33-43-1930Moudt gap [Moles/Vol] 13 mmol/LNormal7-20UnSycamore Medical CenterComment on above:Performed By: #### [id number] ####[facility] ([facility])[address] [place] [address] Calcium [Mass/Vol]8.1 mg/dLLow8.6-10.3UnSycamore Medical CenterComment on above:Performed By: #### [id number] ####[facility] ([facility])[address] [place], [place] [address]Qogdcpzn [Moles/Vol]95 mmol/GWwj52-399AmhpxptkhrSycamore Medical CenterComment on above:Performed By: #### [id number] ####[facility] ([facility])[address] [place] [address]RW1 [Moles/Vol]32 mmol/CJkkt41-94 [facility] HospitalComment on above:Performed By: #### [id number] ####[facility] ([facility])[address] [place] [address]Zqzngpouqe [Mass/Vol]2.79 mg/dLHigh0.60-1.20UnSycamore Medical CenterComment on above:Performed By: #### [id number] ####[facility] ([facility])[address] [place] [address]CBKOLPMPNJ FILTRATION RATE ML/MIN/1.73 SQ M.DGRXTKSNE19.6 mL/min/1.73m*2Low>60.0UnSycamore Medical CenterComment on above:Result Comment: [facility]???s estimated glomerular filtration rate (eGFR) will no [...] potential consequences that do not disproportionately affect anyone group of individuals.Performed By: #### [id number] ####[facility] ([facility])[address] [place] [address]Okngzjv [Mass/Vol]95 mg/eBTypopt20-169VtcckejcreSycamore Medical CenterComment on above:Performed By: #### [id number] ####[facility] ([facility])[address] [place] [address]Haapmjdym [Moles/Vol]3.6 mmol/LNormal3.5-5.1UnSycamore Medical CenterComment on above:Performed By: #### [id number] ####[facility] ([facility])[address] [place] [address] Sodium [Moles/Vol]136 mmol/QSmhrws853-318CctquchwxzSycamore Medical Center Comment on above:Performed By: #### [id number] ####[facility] ([facility])[address] [place] [address]Cixs nitrogen [Mass/Vol]29 mg/dLHigh7-25UnSycamore Medical CenterComment on above:Performed By: #### [id number] ####[facility] ([facility])[address] [place] [address]VMQU NITROGEN/CREATININE (MASS RATIO) IN SER/PLAS10.4NormalUniversBerger HospitalComment on above:Performed By: #### [id number] ####[facility] ([facility])[address] [place] [address]SBJ WITH AUTO DIFFERENTIALon 51-26-1514Pbnejpmih (Bld) [#/Vol]0.02 10*3/uLNormal0.00-0.20UnSycamore Medical CenterComment on above:Performed By: #### [id number] ####[facility] ([facility])[address] [place] [address]Jhhqvfzrg/100 WBC (Bld)0.3 %Normal0.0-1.0UnSycamore Medical CenterComment on above:Performed By: #### [id number] ####[facility] ([facility])[address] [place], [place] [address]Kfchwhrfwhy (Bld) [#/Vol]0.30 10*3/uL Normal0.00-0.50UnSycamore Medical CenterComment on above:Performed By: #### [id number] ####[facility] ([facility])[address] [place] [address] Eosinophils/100 WBC (Bld)4.0 %Normal0.0-6.0UnSycamore Medical Center Comment on above:Performed By: #### [id number] ####[facility] ([facility])[address] [place], [place] [address]Hmelugindkr distribution width (RBC) [Ratio]16.3 % High11.5-15.0UnSycamore Medical CenterComment on above:Performed By: #### [id number] ####[facility] ([facility])[address] [place] [address] ERYTHROCYTE MEAN CORPUSCULAR HEMOGLOBIN CONCENTRATION (G/DL) BY QKCPLLQPO86.2 g/dLLow32.0-35.0UnSycamore Medical CenterComment on above:Performed By: #### [id number] ####[facility] ([facility])[address] [place], [place] [address]Cgtbfhukxr (Bld) [Volume fraction]24.8 %Low36.0-48.0UnSycamore Medical CenterComment on above:Performed By: #### [id number] ####[facility] ([facility])[address] [place], [place] [address]Twveiclsnx (Bld) [Mass/Vol]7.5 g/dLLow 12.0-15.0UnSycamore Medical CenterComment on above:Performed By: #### [id number] ####[facility] ([facility])[address] [place], [place] [address]Aofdnepo granulocytes (Bld) [#/Vol]0.04 10*3/uLNormal0.00-0.20UnSycamore Medical CenterComment on above:Performed By: #### [id number] ####[facility] ([facility])[address] [place], [place] [address]Usbqoxsl granulocytes/100 WBC (Bld)0.5 %Normal0.0-1.0UnSycamore Medical CenterComment on above:Performed By: #### [id number] ####[facility] ([facility])[address] [place] [address] Lymphocytes (Bld) [#/Vol]0.58 10*3/uLLow1.20-4.00UnSycamore Medical CenterComment on above:Performed By: #### [id number] ####[facility] ([facility])[address] [facility] [place] [address]Fqmczncxhjc/100 WBC (Bld)7.7 %Low 20.0-45.0UnSycamore Medical CenterComment on above:Performed By: #### [id number] ####[facility] ([facility])[address] [place] [address]ERL (RBC) [Entitic mass]27.4 syVtikbn03.0-33.0UnSycamore Medical Center Comment on above:Performed By: #### [id number] ####[facility] ([facility])[address] [place], [place] [address]PPY (RBC) [Entitic vol]90.5 lNZczfkq08.0-98.0 [facility] HospitalComment on above:Performed By: #### [id number] ####[facility] ([facility])[address] [place], [place] [address]Bxwkptefo (Bld) [#/Vol]0.52 10*3/uLNormal0.10-1.00UnSycamore Medical CenterComment on above:Performed By: #### [id number] ####[facility] ([facility])[address] [place], [place] [address]Lyfnhxunh/100 WBC (Bld)6.9 %Normal5.0-12.0UnSycamore Medical CenterComment on above:Performed By: #### [id number] ####[facility] ([facility])[address] [place], [place] [address]Czzphchfhue (Bld) [#/Vol] 6.03 10*3/uLNormal1.60-7.60UnSycamore Medical CenterComment on above: Performed By: #### [id number] ####[facility] ([facility])[address] [place], [place] [address]Cbhzkalumtb/100 WBC (Bld)80.6 %High40.0-72.0UnSycamore Medical CenterComment on above:Performed By: #### [id number] ####[facility] ([facility])[address] [place] [address]FZBA (PER 100 WBCS) BY AUTOMATED COUNT0.0 %Xotqmv3JewcbptltlSycamore Medical CenterComment on above: Performed By: #### [id number] ####[facility] ([facility])[address] [place] [address]DGIZAXJIJ (10*3/UL) IN BLOOD AUTOMATED [id number] 10*3/uLNormal 150-400UnSycamore Medical CenterComment on above:Performed By: #### [id number] ####[facility] ([facility])[address] [place] [address]WOW (Bld) [#/Vol]2.74 10*6/uLLow3.80-5.00UnSycamore Medical CenterComment on above:Performed By: #### [id number] ####[facility] ([facility])[address] [place] [address]QTN (Bld) [#/Vol]7.49 10*3/uLNormal4.00-10.60UnSycamore Medical CenterComment on above:Performed By: #### [id number] ####[facility] ([facility])[address] [place] [address]NAEMMMHmn 02-05-2024 CONSULTNormalUniversBerger HospitalHPon 43-50-3222RIA&P reviewed. The patient was examined and there are no changes to the H&P.NormalUnSycamore Medical CenterMAGNESIUMon 49-79-5998Xdlvhaftd [Mass/Vol]3.6 mg/dLHigh 1.9-2.7UnSycamore Medical CenterComment on above:Performed By: #### [id number] ####[facility] ([facility])[address] [place] [address] BRAIN WO CONTRASTon 92-95-7585DJ BRAIN WO CONTRASTInvalid Interpretation Code [facility] HospitalNURSNOTEon 82-40-2659QGQCAXPQXvewnfYrgemglfvk of [place] [facility] CenterNURSNOTEReport called to Kayleigh MELGAR all questions answered.NormalUnSycamore Medical CenterOPNOTEon 83-41-6833PAGYFF NormalUnSycamore Medical CenterPOCT GLUCOSE METER UNSOLICITED RESULTS on 70-19-7080Fkclcjs [Mass/Vol]117 mg/zTGcwq44-069VdobjpsenwSycamore Medical CenterComment on above:Order Comment: Waived Testing in the ED is performed under the ED CLIA certificate #[id number].Result Comment: ahxk3Xlerolzrj By: #### [id number] ####[facility] ([facility])[address] [place] [address] Glucose [Mass/Vol]102 mg/pUTmrqcc20-952DrlnhjvpeeSycamore Medical Center Comment on above:Order Comment: Waived Testing in the ED is performed under the ED CLIA certificate #[id number].Result Comment: leulerPerformed By: #### [id number] ####[facility] ([facility])[address] [place], [place] [address]Xcuwcdy [Mass/Vol]100 mg/hZHcitgp63-169ZzavlzyqxgSycamore Medical CenterComment on above:Order Comment: Waived Testing in the ED is performed under the ED CLIA certificate #[id number].Result Comment: svandygPerformed By: #### [id number] ####[facility] ([facility])[address] [place], [place] [address]Bhbzjhw [Mass/Vol]114 mg/iCLfiy19-638OzcyhilfjlSycamore Medical CenterComment on above:Order Comment: Waived Testing in the ED is performed under the ED CLIA certificate #[id number].Result Comment: agoettiPerformed By: #### [id number] ####[facility] ([facility])[address] [place], [place] [address]LOEMjs 04-13-8834WCGLRgivevLmpdibhcsk Genesis HospitalANTI-XA (HEPARIN LEVEL)on 96-88-5009CQEUJVB UNFRACTIONATED (U/ML) IN PPP BY CHROMOGENIC METHOD>1.00 Critically high0.3-0.7UnSycamore Medical CenterComment on above:Result Comment: Rivaroxaban and Apixaban will interfere with the anti Xa assay used to monitor UFH and LMWH.Performed By: #### [id number] ####[facility] ([facility])[address] [place] [address]MPECcu 79-49-4856HJJTPKLIG PARTIAL THROMBOPLASTIN TIME IN PPP BY COAGULATION ASSAY45.7 WrktrotUtxa52.0-35.0 [facility] HospitalComment on above:Order Comment: Check aPTT every 6 hours while on heparin infusion, or per protocol.Result Comment: Clinical significance of the APTT is questionable in the presence of heparin. Performed By: #### [id number] ####[facility] ([facility])[address] [place] [address]MLZNQYRHI PARTIAL THROMBOPLASTIN TIME IN PPP BY COAGULATION ASSAY40.3 UwyrfxpRufl64.0-35.0[facility] HospitalComment on above:Order Comment: Check aPTT every 6 hours while on heparin infusion, or per protocol.Result Comment: Clinical significance of the APTT is questionable in the presence of heparin.Performed By: #### [id number] ####[facility] ([facility])[address] [place] [address]QQAQF METABOLIC PANELon 02-04-2024 Anion gap [Moles/Vol]15 mmol/LNormal7-20UnSycamore Medical Center Comment on above:Performed By: #### [id number] ####[facility] ([facility])[address] [place] [address]Jqgzkkb [Mass/Vol]8.0 mg/dLLow8.6-10.3UnSycamore Medical CenterComment on above:Performed By: #### [id number] ####[facility] ([facility])[address] [place] [address]Iradkrwq [Moles/Vol]96 mmol/XFfb30-899RquunxubqiSycamore Medical CenterComment on above:Performed By: #### [id number] ####[facility] ([facility])[address] [place] [address]TF8 [Moles/Vol]29 mmol/LLkocqo39-34QbibywnrmvSycamore Medical CenterComment on above:Performed By: #### [id number] ####[facility] ([facility])[address] [place], [place] [address]Yggfpojguo [Mass/Vol]1.87 mg/dLHigh0.60-1.20UnSycamore Medical CenterComment on above:Performed By: #### [id number] ####[facility] ([facility])[address] [place], [place] [address]CZRDAYUTTG FILTRATION RATE ML/MIN/1.73 SQ M.UOLCPJOMZ78.9 mL/min/1.73m*2Low>60.0UnSycamore Medical CenterComment on above:Result Comment: [facility]???s estimated glomerular filtration rate (eGFR) will no [...] potential consequences that do not disproportionately affect anyone group of individuals.Performed By: #### [id number] ####[facility] ([facility])[address] [place], [place] [address]Mfwhgez [Mass/Vol]95 mg/nRVezmly61-397TztydutkssSycamore Medical CenterComment on above:Performed By: #### [id number] ####[facility] ([facility])[address] [place], [place] [address]Mdvvgdela [Moles/Vol]4.0 mmol/LNormal3.5-5.1UnSycamore Medical CenterComment on above:Performed By: #### [id number] ####[facility] ([facility])[address] [place], [place] [address]Anayvd [Moles/Vol]136 mmol/L Rexznp900-737OuyfmpanbnSycamore Medical CenterComment on above:Performed By: #### [id number] ####[facility] ([facility])[address] [place], [place] [address]Uzkg nitrogen [Mass/Vol]24 mg/dLNormal7-25UnSycamore Medical CenterComment on above:Performed By: #### [id number] ####[facility] ([facility])[address] [address] [place], [place] [address]MLGU NITROGEN/CREATININE (MASS RATIO) IN SER/PLAS12.8Normal [facility] HospitalComment on above:Performed By: #### [id number] ####[facility] ([facility])[address] [place], [place] [address]SNW WITH AUTO DIFFERENTIALon 56-53-0882Lrwyzukvy (Bld) [#/Vol]0.02 10*3/uLNormal0.00-0.20 [facility] HospitalComment on above:Performed By: #### [id number] ####[facility] ([facility])[address] [place], [place] [address]Yziqacbgi/100 WBC (Bld)0.2 %Normal0.0-1.0UnSycamore Medical CenterComment on above: Performed By: #### [id number] ####[facility] ([facility])[address] [place], [place] [address]Dfdxpssjvbp (Bld) [#/Vol]0.18 10*3/uLNormal0.00-0.50 [facility] HospitalComment on above:Performed By: #### [id number] ####[facility] ([facility])[address] [place], [place] [address]Uonljnkqzex/100 WBC (Bld)2.2 %Normal0.0-6.0UnSycamore Medical CenterComment on above: Performed By: #### [id number] ####[facility] ([facility])[address] [place], [place] [address]Pbhxdkpoqle distribution width (RBC) [Ratio]16.1 %High 11.5-15.0UnSycamore Medical CenterComment on above:Performed By: #### [id number] ####[facility] ([facility])[address] [facility] [address] ERYTHROCYTE MEAN CORPUSCULAR HEMOGLOBIN CONCENTRATION (G/DL) BY VWBHPBTNK55.4 g/dLLow32.0-35.0UnSycamore Medical CenterComment on above:Performed By: #### [id number] ####[facility] ([facility])[address] [place] [address]Egvmweeisi (Bld) [Volume fraction]28.0 %Low36.0-48.0UnSycamore Medical CenterComment on above:Performed By: #### [id number] ####[facility] ([facility])[address] [place], [place] [address]Cnzlyfcqwy (Bld) [Mass/Vol]8.8 g/dLLow 12.0-15.0UnSycamore Medical CenterComment on above:Performed By: #### [id number] ####[facility] ([facility])[address] [place], [place] [address]Pfmmszai granulocytes (Bld) [#/Vol]0.04 10*3/uLNormal0.00-0.20UnSycamore Medical CenterComment on above:Performed By: #### [id number] ####[facility] ([facility])[address] [place] [address]Ubxdkaji granulocytes/100 WBC (Bld)0.5 %Normal0.0-1.0UnSycamore Medical CenterComment on above:Performed By: #### [id number] ####[facility] ([facility])[address] [place] [address] Lymphocytes (Bld) [#/Vol]0.52 10*3/uLLow1.20-4.00UnSycamore Medical CenterComment on above:Performed By: #### [id number] ####[facility] ([facility])[address] [place], [place] [address]Bxupyforvhy/100 WBC (Bld)6.5 %Low 20.0-45.0UnSycamore Medical CenterComment on above:Performed By: #### [id number] ####[facility] ([facility])[address] [place], [place] [address]FHD (RBC) [Entitic mass]28.3 qaYhtfpg89.0-33.0UnSycamore Medical Center Comment on above:Performed By: #### [id number] ####[facility] ([facility])[address] [facility] [place], [place] [address]NHE (RBC) [Entitic vol]90.0 sMRcyecn81.0-98.0 [facility] HospitalComment on above:Performed By: #### [id number] ####[facility] ([facility])[address] [facility] [place] [address]Mywcoebkj (Bld) [#/Vol]0.65 10*3/uLNormal0.10-1.00UnSycamore Medical CenterComment on above:Performed By: #### [id number] ####[facility] ([facility])[address] [place], [place] [address]Jxjithfom/100 WBC (Bld)8.1 %Normal5.0-12.0UnSycamore Medical CenterComment on above:Performed By: #### [id number] ####[facility] ([facility])[address] [facility] [address]Bguctczjcon (Bld) [#/Vol] 6.61 10*3/uLNormal1.60-7.60UnSycamore Medical CenterComment on above: Performed By: #### [id number] ####[facility] ([facility])[address] [place], [place] [address]Pmcupjuwopx/100 WBC (Bld)82.5 %High40.0-72.0UnSycamore Medical CenterComment on above:Performed By: #### [id number] ####[facility] ([facility])[address] [place], [place] [address]XROK (PER 100 WBCS) BY AUTOMATED COUNT0.0 %Zxzdal3SrredcblopSycamore Medical CenterComment on above: Performed By: #### [id number] ####[facility] ([facility])[address] [place] [address]ZSNGPIJME (10*3/UL) IN BLOOD AUTOMATED UVSCF484 10*3/uLNormal 150-400UnSycamore Medical CenterComment on above:Performed By: #### [id number] ####[facility] ([facility])[address] [place] [address]AKU (Bld) [#/Vol]3.11 10*6/uLLow3.80-5.00UnSycamore Medical CenterComment on above:Performed By: #### [id number] ####[facility] ([facility])[address] [place] [address]WVJ (Bld) [#/Vol]8.02 10*3/uLNormal4.00-10.60UnSycamore Medical CenterComment on above:Performed By: #### [id number] ####[facility] ([facility])[address] [place] [address]NQ BRAIN PERFUSIONon 54-11-5106ZS BRAIN PERFUSIONInvalid Interpretation CodeGreene Memorial HospitalCT HEAD WO IV CONTRASTon 51-21-5166PN HEAD WO IV CONTRASTNormal [facility] HospitalCTA HEAD W IV CONTRASTon 76-96-1749MVC HEAD W IV CONTRASTNormalUniversBerger HospitalCTA NECK W IV CONTRASTon 30-19-0704EPM NECK W IV CONTRASTInvalid Interpretation CodeGreene Memorial HospitalMAGNESIUMon 75-67-3748Enubchouq [Mass/Vol]3.1 mg/dLHigh1.9-2.7 [facility] HospitalComment on above:Performed By: #### [id number] ####[facility] ([facility])[address] [place] [address]IPQL GLUCOSE METER UNSOLICITED RESULTSon 27-28-1128Vkcmfhn [Mass/Vol]172 mg/yZLoou81-040 [facility] HospitalComment on above:Order Comment: Waived Testing in the ED is performed under the ED CLIA certificate #[id number].Result Comment: [id number] By: #### [id number] ####[facility] ([facility])[address] [facility] [place] [address]Adxphsb [Mass/Vol]113 mg/fZPgxv55-873RjuweugxbeSycamore Medical CenterComment on above:Order Comment: Waived Testing in the ED is performed under the ED CLIA certificate #[id number].Result Comment: [email or web address] Performed By: #### [id number] ####[facility] ([facility])[address] [facility] [place] [address]RVXSIK BLOOD GAS WITH IONIZED CALCIUMon 27-50-9775Xtpy excess Calc (BldV) [Moles/Vol]10.1 mmol/LNormalUnSycamore Medical Center Comment on above:Performed By: #### [id number] ####[facility] RESPIRATORY [id number] [place] [address] USACALCIUM IONIZED (MMOL/L) IN BLOOD1.18 mmol/L Normal1.15-1.33UnSycamore Medical CenterComment on above:Performed By: #### [id number] ####[facility] RESPIRATORY [id number] [facility] [place] [address] [place] CO2 (BldV) [Partial pressure]62 mm[Hg]Hdik95-94BoyvseodpxSycamore Medical CenterComment on above:Performed By: #### [id number] ####[facility] RESPIRATORY [id number] [place] [address] USAHCO3 (Bld) [Moles/Vol]37.5 mmol/L NormalUnSycamore Medical CenterComment on above:Performed By: #### [id number] ####[facility] RESPIRATORY [id number] [facility] [place] [address] USAOxygen (BldV) [Partial pressure]49 mm[Hg]Krld87-05HfpvklllzpSycamore Medical Center Comment on above:Performed By: #### [id number] ####[facility] RESPIRATORY [id number] [facility] [place] [address] USAOXYGEN SATURATION (%) IN VENOUS BLOOD79.9 %High 65.0-75.0UnSycamore Medical CenterComment on above:Performed By: #### [id number] ####[facility] RESPIRATORY [id number] [place] [address] USAPH OF VENOUS BLOOD7.80Qxozhq6.31-7.41UnSycamore Medical CenterComment on above:Performed By: #### [id number] ####[facility] RESPIRATORY [id number] [place] [address] OHO70tb 92-50-284395IkgjbwEfshjdwtvm of [place] [facility] Nzaxrc60BchgcbMreesvpmpbBerger HospitalAPTTon 53-35-3673KAOLPLIUO PARTIAL THROMBOPLASTIN TIME IN PPP BY COAGULATION ASSAY91.2 AdfhjiaBhwm03.0-35.0 [facility] HospitalComment on above:Order Comment: Check aPTT every 6 hours while on heparin infusion, or per protocol.Result Comment: Clinical significance of the APTT is questionable in the presence of heparin. Performed By: #### [id number] ####[facility] ([facility])[address] [place], [place] [address]PKGPBANK BLOOD GAS WITH CO-OXIMETRYon 66-51-5525Vuvr excess Calc (Bld) [Moles/Vol]8.6 mmol/LHigh-2.0-3.0[facility] Comment on above:Performed By: #### [id number] ####[facility] RESPIRATORY [id number] [place] [address] USACARBOXYHEMOGLOBIN/HEMOGLOBIN TOTAL % IN BLOOD 1.6 %Normal0.0-3.0UnSycamore Medical CenterComment on above:Performed By: #### [id number] ####[facility] RESPIRATORY [id number] [place] [address] USACO2 (Bld) [Partial pressure]47 mm[Hg]Irmzfg31-94ZmenjcrlxrSycamore Medical CenterComment on above:Performed By: #### [id number] ####[facility] RESPIRATORY [id number] [place] [address] USADEOXYGENATED HEMOGLOBIN IN BLOOD2.3 %Normal1-5UnSycamore Medical CenterComment on above:Performed By: #### [id number] ####[facility] RESPIRATORY [id number] [place] [address] [place] HCO3 (Bld) [Moles/Vol]33.4 mmol/LHigh21.0-28.0UnSycamore Medical CenterComment on above:Performed By: #### [id number] ####[facility] RESPIRATORY [id number] [place] [address] USAHemoglobin (Bld) [Mass/Vol]9.4 g/dL Low11.7-17.4UnSycamore Medical CenterComment on above:Performed By: #### [id number] ####[facility] RESPIRATORY [id number] [place] [address] [facility] OVS3HkkgfgNldbdnonlaBerger HospitalComment on above:Performed By: #### [id number] ####[facility] RESPIRATORY [id number] [place] [address] [place] METHEMOGLOBIN/100 IN BLOOD0.5 %Normal0.0-1.5UnSycamore Medical Center Comment on above:Performed By: #### [id number] ####[facility] RESPIRATORY [id number] AV[facility] [place] [address] USAOxygen (Bld) [Partial pressure]72 mm[Hg]Low 83-100UnSycamore Medical CenterComment on above:Performed By: #### [id number] ####[facility] RESPIRATORY [id number] [place] [address] USAOXYGEN SATURATION (%) IN ARTERIAL BLOOD97.7 %Xuzpxa05.0-98.0UnSycamore Medical CenterComment on above:Performed By: #### [id number] ####[facility] RESPIRATORY [id number] [place] [address] USAOXYGENATED HEMOGLOBIN IN BLOOD95.7 %High90.0-95.0UnSycamore Medical CenterComment on above:Performed By: #### [id number] ####[facility] RESPIRATORY [id number] [place] [address] [place] pH (Bld)7.46 [pH]High7.35-7.45UnSycamore Medical CenterComment on above:Performed By: #### [id number] ####[facility] RESPIRATORY [id number] [place] [address] USASOURCE OF OXYGENNasal cannulaNormalUniversBerger HospitalComment on above:Performed By: #### [id number] ####[facility] RESPIRATORY [id number] [place] [address] USABASIC METABOLIC PANELon 02-03-2024 Anion gap [Moles/Vol]14 mmol/LNormal7-20UnSycamore Medical Center Comment on above:Performed By: #### [id number] ####[facility] ([facility])[address] [place], [place] [address]Zymdmfg [Mass/Vol]8.3 mg/dLLow8.6-10.3UnSycamore Medical CenterComment on above:Performed By: #### [id number] ####[facility] ([facility]ER)[address] [place], [place] [address]Hrxesfyn [Moles/Vol]94 mmol/LUuo45-378BmvshkwcvwSycamore Medical CenterComment on above:Performed By: #### [id number] ####[facility] ([facility])[address] [place], [place] [address]LM4 [Moles/Vol]31 mmol/EMdsppy00-48EofxuxllfxSycamore Medical CenterComment on above:Performed By: #### [id number] ####[facility] ([facility])[address] [place], [place] [address]Sdglwygkek [Mass/Vol]1.51 mg/dLHigh0.60-1.20UnSycamore Medical CenterComment on above:Performed By: #### [id number] ####[facility] ([facility])[address] [place], [place] [address]EVVRHDSANV FILTRATION RATE ML/MIN/1.73 SQ M.PTJBUMJNP10.7 mL/min/1.73m*2Low>60.0UnSycamore Medical CenterComment on above:Result Comment: [facility]???s estimated glomerular filtration rate (eGFR) will no [...] potential consequences that do not disproportionately affect anyone group of individuals.Performed By: #### [id number] ####[facility] ([facility])[address] [place], [place] [address]Wlbbwlq [Mass/Vol]155 mg/iTKqyo26-285WqztrqtcheSycamore Medical CenterComment on above:Performed By: #### [id number] ####[facility] ([facility])[address] [place], [place] [address]Aldzutnej [Moles/Vol]4.0 mmol/LNormal3.5-5.1UnSycamore Medical CenterComment on above:Performed By: #### [id number] ####[facility] ([facility])[address] [place], [place] [address]Znbput [Moles/Vol]135 mmol/LLow 136-145UnSycamore Medical CenterComment on above:Performed By: #### [id number] ####[facility] ([facility])[address] [place], [place] [address]Qhes nitrogen [Mass/Vol]19 mg/dLNormal7-25UnSycamore Medical CenterComment on above:Performed By: #### [id number] ####[facility] ([facility])[address] [place], [place] [address]GADI NITROGEN/CREATININE (MASS RATIO) IN SER/PLAS12.6Normal [facility] HospitalComment on above:Performed By: #### [id number] ####[facility] ([facility])[address] [place], [place] [address]Wtsla gap [Moles/Vol]18 mmol/LNormal7-20UnSycamore Medical CenterComment on above:Performed By: #### [id number] ####[facility] ([facility])[address] [place], [place] [address]Oxivqma [Mass/Vol]9.0 mg/dLNormal8.6-10.3UnSycamore Medical CenterComment on above:Performed By: #### [id number] ####[facility] ([facility])[address] [place] [address]Takqtauw [Moles/Vol]96 mmol/UFev40-634 [facility] HospitalComment on above:Performed By: #### [id number] ####[facility] ([facility])[address] [place] [address]MJ7 [Moles/Vol] 26 mmol/EAtctor50-39EcunhluvqpSycamore Medical CenterComment on above: Performed By: #### [id number] ####[facility] ([facility])[address] [place] [address]Xsmmfnbvoo [Mass/Vol]1.55 mg/dLHigh0.60-1.20UnSycamore Medical CenterComment on above:Performed By: #### [id number] ####[facility] ([facility])[address] [place] [address]CPSOFJTUFX FILTRATION RATE ML/MIN/1.73 SQ M.QJULJPRPY02.7 mL/min/1.73m*2Low>60.0UnSycamore Medical Center Comment on above:Result Comment: [facility]???s estimated glomerular filtration rate (eGFR) will no longer include consideration of race in its calculation. The National Kidney Foundation???s eGFR Task Force developed new recommendations for the estimation of the glomerular filtration ra te in the [place] They recommend immediate implementation of the new equation refit without the race variable in all laboratories because the calculation does not include race. In addition to not including race in the calculation and reporting, it included diversity in its development, and has acceptable performance characteristics and potential consequences that do not disproportionately affect anyone group of individuals.Performed By: #### [id number] ####[facility] ([facility])[address] [place] [address]Kmmvaya [Mass/Vol]90 mg/gWMaffam68-097XkzguvgzueSycamore Medical CenterComment on above:Performed By: #### [id number] ####[facility] ([facility] [place] [address]Akfibalea [Moles/Vol]4.6 mmol/LNormal3.5-5.1UnSycamore Medical CenterComment on above:Performed By: #### [id number] ####[facility] ([facility])[address] [place] [address]Muatty [Moles/Vol]135 mmol/LLow 136-145UnSycamore Medical CenterComment on above:Performed By: #### [id number] ####[facility] ([facility])[address] [place] [address]Ndzp nitrogen [Mass/Vol]20 mg/dLNormal7-25UnSycamore Medical CenterComment on above:Performed By: #### [id number] ####[facility] ([facility])[address] [place] [address]AKWG NITROGEN/CREATININE (MASS RATIO) IN SER/PLAS12.9Normal [facility] HospitalComment on above:Performed By: #### [id number] ####[facility] ([facility])[address] [place] [address]QFFVSYV, IONIZED on 09-35-3160PJSDQHH IONIZED (MMOL/L) IN BLOOD1.13 mmol/LLow1.15-1.33UnSycamore Medical CenterComment on above:Performed By: #### CALCIUM, IONIZED ####[facility] RESPIRATORY [id number] [place] [address] USACBC WITH AUTO DIFFERENTIALon 01-90-3658Leqjajnfc (Bld) [#/Vol]0.02 10*3/uLNormal0.00-0.20 [facility] HospitalComment on above:Performed By: #### [id number] ####[facility] ([facility])[address] [place] [address]Yhpudzdyz/100 WBC (Bld)0.3 %Normal0.0-1.0UnSycamore Medical CenterComment on above: Performed By: #### [id number] ####[facility] ([facility])[address] [place], [place] [address]Chvtijdocps (Bld) [#/Vol]0.22 10*3/uLNormal0.00-0.50 [facility] HospitalComment on above:Performed By: #### [id number] ####[facility] ([facility])[address] [place] [address]Idmxfuoczrl/100 WBC (Bld)3.4 %Normal0.0-6.0UnSycamore Medical CenterComment on above: Performed By: #### [id number] ####[facility] ([facility])[address] [place], [place] [address]Bebqafkivjd distribution width (RBC) [Ratio]16.0 %High 11.5-15.0UnSycamore Medical CenterComment on above:Performed By: #### [id number] ####[facility] ([facility])[address] [place] [address] ERYTHROCYTE MEAN CORPUSCULAR HEMOGLOBIN CONCENTRATION (G/DL) BY ECTPZANSE35.5 g/dLLow32.0-35.0UnSycamore Medical CenterComment on above:Performed By: #### [id number] ####[facility] ([facility])[address] [place], [place] [address]Mljceuhtpq (Bld) [Volume fraction]26.6 %Low36.0-48.0UnSycamore Medical CenterComment on above:Performed By: #### [id number] ####[facility] ([facility])[address] [place], [place] [address]Yqbwzorzin (Bld) [Mass/Vol]8.1 g/dLLow 12.0-15.0UnSycamore Medical CenterComment on above:Performed By: #### [id number] ####[facility] ([facility])[address] [place], [place] [address]Bvuowwfw granulocytes (Bld) [#/Vol]0.05 10*3/uLNormal0.00-0.20UnSycamore Medical CenterComment on above:Performed By: #### [id number] ####[facility] ([facility])[address] [facility] [address]Whgsurlv granulocytes/100 WBC (Bld)0.8 %Normal0.0-1.0UnSycamore Medical CenterComment on above:Performed By: #### [id number] ####[facility] ([facility])[address] [address] Lymphocytes (Bld) [#/Vol]0.45 10*3/uLLow1.20-4.00UnSycamore Medical CenterComment on above:Performed By: #### [id number] ####[facility] ([facility])[address] [facility] [facility] [address]Wxgcjwvfsxm/100 WBC (Bld)6.9 %Low 20.0-45.0UnSycamore Medical CenterComment on above:Performed By: #### [id number] ####[facility] ([facility])[address] [place], [place] [address]EEH (RBC) [Entitic mass]27.9 fvXuedjp94.0-33.0UnSycamore Medical Center Comment on above:Performed By: #### [id number] ####[facility] ([facility])[address] [facility] [address]XGF (RBC) [Entitic vol]91.7 zWNtawmx37.0-98.0 [facility] HospitalComment on above:Performed By: #### [id number] ####[facility] ([facility])[address] [facility] [address]Sxicenztg (Bld) [#/Vol]0.46 10*3/uLNormal0.10-1.00UnSycamore Medical CenterComment on above:Performed By: #### [id number] ####[facility] ([facility])[address] [facility] [address]Xtzaqupvq/100 WBC (Bld)7.1 %Normal5.0-12.0UnSycamore Medical CenterComment on above:Performed By: #### [id number] ####[facility] ([facility])[address] [place] [address]Vmzfisheknt (Bld) [#/Vol] 5.31 10*3/uLNormal1.60-7.60UnSycamore Medical CenterComment on above: Performed By: #### [id number] ####[facility] ([facility])[address] [place] [address]Qhrsbijaezd/100 WBC (Bld)81.5 %High40.0-72.0UnSycamore Medical CenterComment on above:Performed By: #### [id number] ####[facility] ([facility])[address] [place] [address]IMES (PER 100 WBCS) BY AUTOMATED COUNT0.0 %Tfjipq2EcwhpnowbcSycamore Medical CenterComment on above: Performed By: #### [id number] ####[facility] ([facility])[address] [place] [address]PSZVMCXOD (10*3/UL) IN BLOOD AUTOMATED SNQVU116 10*3/uLNormal 150-400UnSycamore Medical CenterComment on above:Performed By: #### [id number] ####[facility] ([facility])[address] [place] [address]WBO (Bld) [#/Vol]2.90 10*6/uLLow3.80-5.00UnSycamore Medical CenterComment on above:Performed By: #### [id number] ####[facility] ([facility])[address] [place] [address]RGH (Bld) [#/Vol]6.51 10*3/uLNormal4.00-10.60UnSycamore Medical CenterComment on above:Performed By: #### [id number] ####[facility] ([facility])[address] [place], [place] [address]Nqmttekew (Bld) [#/Vol] 0.02 10*3/uLNormal0.00-0.20UnSycamore Medical CenterComment on above: Performed By: #### [id number] ####[facility] ([facility])[address] [place], [place] [address]Cwvabrzuw/100 WBC (Bld)0.2 %Normal0.0-1.0UnSycamore Medical CenterComment on above:Performed By: #### [id number] ####[facility] ([facility])[address] [place], [place] [address]Wkgxkbhcgaj (Bld) [#/Vol]0.33 10*3/uL Normal0.00-0.50UnSycamore Medical CenterComment on above:Performed By: #### [id number] ####[facility] ([facility])[address] [place] [address] Eosinophils/100 WBC (Bld)3.8 %Normal0.0-6.0UnSycamore Medical Center Comment on above:Performed By: #### [id number] ####[facility] ([facility])[address] [place], [place] [address]Hdlyzangoya distribution width (RBC) [Ratio]16.2 % High11.5-15.0UnSycamore Medical CenterComment on above:Performed By: #### [id number] ####[facility] ([facility])[address] [place] [address] ERYTHROCYTE MEAN CORPUSCULAR HEMOGLOBIN CONCENTRATION (G/DL) BY FHMNYJEJM30.4 g/dLLow32.0-35.0UnSycamore Medical CenterComment on above:Performed By: #### [id number] ####[facility] ([facility])[address] [place], [place] [address]Akbfehunda (Bld) [Volume fraction]30.9 %Low36.0-48.0UnSycamore Medical CenterComment on above:Performed By: #### [id number] ####[facility] ([facility])[address] [place], [place] [address]Tznpfgrcbo (Bld) [Mass/Vol]9.7 g/dLLow 12.0-15.0UnSycamore Medical CenterComment on above:Performed By: #### [id number] ####[facility] ([facility])[address] [facility] [place], [place] [address]Upbjwwho granulocytes (Bld) [#/Vol]0.06 10*3/uLNormal0.00-0.20UnSycamore Medical CenterComment on above:Performed By: #### [id number] ####[facility] ([facility])[address] [place], [place] [address]Fnimydpg granulocytes/100 WBC (Bld)0.7 %Normal0.0-1.0UnSycamore Medical CenterComment on above:Performed By: #### [id number] ####[facility] ([facility])[address] [place] [address] Lymphocytes (Bld) [#/Vol]1.07 10*3/uLLow1.20-4.00UnSycamore Medical CenterComment on above:Performed By: #### [id number] ####[facility] ([facility])[address] [place] [address]Uqljnkovcwv/100 WBC (Bld)12.4 %Low 20.0-45.0UnSycamore Medical CenterComment on above:Performed By: #### [id number] ####[facility] ([facility])[address] [place] [facility] [address]GEK (RBC) [Entitic mass]28.0 wjOaxpyy45.0-33.0UnSycamore Medical Center Comment on above:Performed By: #### [id number] ####[facility] ([facility])[address] [facility] [place] [address]NUJ (RBC) [Entitic vol]89.0 uOSvbbwh88.0-98.0 [facility] HospitalComment on above:Performed By: #### [id number] ####[facility] ([facility])[address] [facility] [address]Aupwejolk (Bld) [#/Vol]0.51 10*3/uLNormal0.10-1.00UnSycamore Medical CenterComment on above:Performed By: #### [id number] ####[facility] ([facility])[address] [place] [address]Hpjltoegr/100 WBC (Bld)5.9 %Normal5.0-12.0UnSycamore Medical CenterComment on above:Performed By: #### [id number] ####[facility] ([facility])[address] [place], [place] [address]Dxwdcqphsth (Bld) [#/Vol] 6.63 10*3/uLNormal1.60-7.60UnSycamore Medical CenterComment on above: Performed By: #### [id number] ####[facility] ([facility])[address] [place] [address]Asmpkqjeifv/100 WBC (Bld)77.0 %High40.0-72.0UnSycamore Medical CenterComment on above:Performed By: #### [id number] ####[facility] ([facility])[address] [place] [address]EZTG (PER 100 WBCS) BY AUTOMATED COUNT0.0 %Cqtiym1YxmgklbcqfSycamore Medical CenterComment on above: Performed By: #### [id number] ####[facility] ([facility])[address] [place] [address]TDFDAZKFM (10*3/UL) IN BLOOD AUTOMATED [id number] 10*3/uLNormal 150-400UnSycamore Medical CenterComment on above:Performed By: #### [id number] ####[facility] ([facility])[address] [place], [place] [address]IWU (Bld) [#/Vol]3.47 10*6/uLLow3.80-5.00UnSycamore Medical CenterComment on above:Performed By: #### [id number] ####[facility] ([facility])[address] [place], [place] [address]OBS (Bld) [#/Vol]8.62 10*3/uLNormal4.00-10.60UnSycamore Medical CenterComment on above:Performed By: #### [id number] ####[facility] ([facility])[address] [place], [place] [address]LIRUOZXCZGPGJ METABOLIC PANELon 58-54-5227Xdnftld [Mass/Vol]3.5 g/dLNormal3.5-5.7UnSycamore Medical CenterComment on above:Performed By: #### [id number] ####[facility] ([facility])[address] [place], [place] [address]OBU [Catalytic activity/Vol]96 U/L Sirsre65-913IbqpjaxdiySycamore Medical CenterComment on above:Performed By: #### [id number] ####[facility] ([facility])[address] [place], [place] [address]IZY [Catalytic activity/Vol]5 U/LLow7-52UnSycamore Medical CenterComment on above:Performed By: #### [id number] ####[facility] ([facility])[address] [place], [place] [address]Iqdoa gap [Moles/Vol]14 mmol/LNormal7-20UnSycamore Medical CenterComment on above:Performed By: #### [id number] ####[facility] ([facility])[address] [place], [place] [address]HBQ [Catalytic activity/Vol]11 U/LLow 13-39UnSycamore Medical CenterComment on above:Performed By: #### [id number] ####[facility] ([facility])[address] [place], [place] [address]Iircmtfvu [Mass/Vol]0.8 mg/dLNormal0.3-1.0UnSycamore Medical CenterComment on above:Performed By: #### [id number] ####[facility] ([facility])[address] [place], [place] [address]Lzcniis [Mass/Vol]9.2 mg/dLNormal8.6-10.3UnSycamore Medical CenterComment on above:Performed By: #### [id number] ####[facility] ([facility])[address] [place], [place] [address]Pukujgrz [Moles/Vol]95 mmol/CHru40-894 [facility] HospitalComment on above:Performed By: #### [id number] ####[facility] ([facility])[address] [place], [place] [address]LN1 [Moles/Vol] 31 mmol/ZTswfkk75-79OmcpawmytpSycamore Medical CenterComment on above: Performed By: #### [id number] ####[facility] ([facility])[address] [place], [place] [address]Ybspnoojxw [Mass/Vol]1.54 mg/dLHigh0.60-1.20UnSycamore Medical CenterComment on above:Performed By: #### [id number] ####[facility] ([facility])[address] [place], [place] [address]TYWVRBLENB FILTRATION RATE ML/MIN/1.73 SQ M.QVTLJOTMB37.9 mL/min/1.73m*2Low>60.0UnSycamore Medical Center Comment on above:Result Comment: [facility]???s estimated glomerular filtration rate (eGFR) will no longer include consideration of race in its calculation. The National Kidney Foundation???s eGFR Task Force developed new recommendations for the estimation of the glomerular filtration ra te in the [place] They recommend immediate implementation of the new equation refit without the race variable in all laboratories because the calculation does not include race. In addition to not including race in the calculation and reporting, it included diversity in its development, and has acceptable performance characteristics and potential consequences that do not disproportionately affect anyone group of individuals.Performed By: #### [id number] ####[facility] ([facility])[address] [place], [place] [address]Odqaifm [Mass/Vol]89 mg/bUUvlhbk97-649EvugjcosmwSycamore Medical CenterComment on above:Performed By: #### [id number] ####[facility] ([facility])[address] [place], [place] [address]Crivaxqgb [Moles/Vol]4.1 mmol/LNormal3.5-5.1UnSycamore Medical CenterComment on above:Performed By: #### [id number] ####[facility] ([facility])[address] [place] [address]Juuglhh [Mass/Vol]6.2 g/dLNormal 6.0-8.3UnSycamore Medical CenterComment on above:Performed By: #### [id number] ####[facility] ([facility])[address] [place] [address]Datrlm [Moles/Vol]136 mmol/UUchavs730-171UkcfrtyhtbSycamore Medical CenterComment on above:Performed By: #### [id number] ####[facility] ([facility])[address] [place] [address]Iklb nitrogen [Mass/Vol]20 mg/dLNormal7-25UnSycamore Medical CenterComment on above:Performed By: #### [id number] ####[facility] ([facility])[address] [place], [place] [address]BPHY NITROGEN/CREATININE (MASS RATIO) IN SER/PLAS13.0NormalUniversBerger HospitalComment on above: Performed By: #### [id number] ####[facility] ([facility])[address] [place] [address]ZZFZLBQse 73-80-1111WNZQKZFJbudkcNzutrcldjy of [facility] Medical CenterCTA ABDOMEN PELVIS W IV CONTRASTon 16-38-4892HQR ABDOMEN PELVIS W IV CONTRASTNormal [facility] Memorial HospitalLACTIC ACID WITH 4 HOUR REFLEXon 02-03-2024 LACTATE (MMOL/L) IN SER/PLAS0.7 mmol/LNormal0.5-2.2UnSycamore Medical CenterComment on above:Performed By: #### [id number] ####[facility] ([facility])[address] [place] [address]PZYHLVL (MMOL/L) IN SER/PLAS1.4 mmol/L Normal0.5-2.2UnSycamore Medical CenterComment on above:Performed By: #### [id number] ####[facility] ([facility])[address] [place] [address] MAGNESIUMon 89-80-9447Ijiryzspc [Mass/Vol]2.3 mg/dLNormal1.9-2.7UnSycamore Medical CenterComment on above:Performed By: #### [id number] ####[facility] ([facility])[address] [place], [place] [address]Menegfaxm [Mass/Vol]2.3 mg/dLNormal1.9-2.7UnSycamore Medical CenterComment on above:Performed By: #### [id number] ####[facility] ([facility])[address] [place] [address] NURSNOTEon 49-36-2064YAXSNDJPHtftozOpajpvujnj of [place] Medical CenterPHOSPHORUS on 28-02-3546Onvkekgnp [Mass/Vol]4.8 mg/dLNormal2.5-5.0UnSycamore Medical CenterComment on above:Performed By: #### [id number] ####[facility] ([facility])[address] [place] [address]UCSA GLUCOSE METER UNSOLICITED RESULTS on 89-21-1912Ikjtuej [Mass/Vol]105 mg/dIJltbzq90-420GxkvktcbhcSycamore Medical CenterComment on above:Order Comment: Waived Testing in the ED is performed under the ED CLIA certificate #[id number].Result Comment: renomwo2Cdbmvzfpo By: #### [id number] ####[facility] ([facility])[address] [place] [address] Glucose [Mass/Vol]110 mg/sGDazg01-191ZqefbkesyvSycamore Medical CenterComment on above:Order Comment: Waived Testing in the ED is performed under the ED CLIA certificate #[id number].Result Comment: cjhqkgk3Jljedqhtv By: #### [id number] ####[facility] ([facility])[address] [place], [place] [address]SPEZTJMXX, WHOLE BLOODon 39-94-0421Cynjecmhs [Moles/Vol]4.2 mmol/LNormal3.5-5.1Unhuntsman mental health institute Barcenas Medical CenterComment on above:Performed By: #### POTASSIUM, WHOLE BLOOD ####[facility] RESPIRATORY [id number] [place] [address] USASODIUM, WHOLE BLOODon 82-75-7245CPFSJY, WHOLE SJIDI971Tdu924-095TpnuqazkbgSycamore Medical CenterComment on above:Performed By: #### SODIUM, WHOLE BLOOD ####[facility] RESPIRATORY [id number] [place] [address] USATROPONIN Ion 02-03-2024 Troponin I.cardiac [Mass/Vol]0.05 ng/mLHigh0.00-0.04UnSycamore Medical CenterComment on above:Performed By: #### [id number] ####[facility] ([facility])[address] [place], [place] [address]Wtfndvau I.cardiac [Mass/Vol]0.06 ng/mLHigh0.00-0.04UnSycamore Medical CenterComment on above:Performed By: #### [id number] ####[facility] ([facility])[address] [place] [address] Troponin I.cardiac [Mass/Vol]0.05 ng/mLHigh0.00-0.04[facility] HospitalComment on above:Performed By: #### [id number] ####[facility] ([facility])[address] [place], [place] [address]OLZQ AND SCREENon 71-65-5480WF SCREEN NegativeNormalUniAshtabula General HospitalComment on above:Performed By: #### [id number] ####[facility] BLOOD BANK,ABO group Nom (Bld)ONormalUnSycamore Medical CenterComment on above:Performed By: #### [id number] ####[facility] BLOOD BANK,RH TYPE IN BLOODPositiveNormalUniAshtabula General HospitalCommckenzie memorial hospital on above: Performed By: #### [id number] ####[facility] BLOOD BANK,30on 99-65-273663GawkvyVvkxygzqyf of [place] [facility] Ylmuqj87OcqfhmZrwzifugpcBerger HospitalARTERIAL BLOOD GAS WITH IONIZED CALCIUMon 67-39-4618Cguh excess Calc (Bld) [Moles/Vol]3.2 mmol/LHigh-2.0-3.0UnSycamore Medical CenterComment on above:Order Comment: Bipap 12/6Performed By: #### [id number] ####[facility] RESPIRATORY [id number] [place] [address] USACALCIUM IONIZED (MMOL/L) IN BLOOD1.19 mmol/L Normal1.15-1.33UnSycamore Medical CenterComment on above:Order Comment: Bipap 12/6Performed By: #### [id number] ####[facility] RESPIRATORY [id number] [place] [address] USACO2 (Bld) [Partial pressure]45 mm[Hg]Normal 35-48UnSycamore Medical CenterComment on above:Order Comment: Bipap 12/6Performed By: #### [id number] ####[facility] RESPIRATORY [id number] [place] [address] JXVAFE539 %NormalUnSycamore Medical CenterComment on above:Order Comment: Bipap 12/6Performed By: #### [id number] ####[facility] RESPIRATORY [id number] [place] [address] USAHCO3 (Bld) [Moles/Vol] 28.5 mmol/LHigh21.0-28.0UnSycamore Medical CenterComment on above: Order Comment: Bipap 12/6Performed By: #### [id number] ####[facility] RESPIRATORY [id number] [place] [address] USAOxygen (Bld) [Partial pressure]187 mm[Hg]Zhrr16-999XddijtkeyoSycamore Medical CenterComment on above:Order Comment: Bipap 12/6Performed By: #### [id number] ####[facility] RESPIRATORY [id number] [place] [address] USAOXYGEN SATURATION (%) IN ARTERIAL AWGZZ773.0 % High94.0-98.0UnSycamore Medical CenterComment on above:Order Comment: Bipap 12/6Performed By: #### [id number] ####[facility] RESPIRATORY [id number] [place] [address] USAPEEP6 mzL9UAntsvbPvetugmbfyAshtabula General Hospital Comment on above:Order Comment: Bipap 12/6Performed By: #### [id number] ####[facility] RESPIRATORY [id number] [place] [address] USApH (Bld)7.41 [pH]Normal 7.35-7.45UnSycamore Medical CenterComment on above:Order Comment: Bipap 12/6Performed By: #### [id number] ####[facility] RESPIRATORY [id number] [place] [address] USARESPIRATORY ZBHA85CccowmSpiknzmjdtAshtabula General HospitalComment on above:Order Comment: Bipap 12/6Performed By: #### [id number] ####[facility] RESPIRATORY [id number] [place] [address] USASOURCE OF OXYGENBi-PAPNormalUniversBerger HospitalComment on above:Order Comment: Bipap 12/6Performed By: #### [id number] ####[facility] RESPIRATORY [id number] [place] [address] USAB-TYPE NATRIURETIC PEPTIDEon 02-02-2024 Natriuretic peptide B (Bld) [Mass/Vol]1109 pg/mLHigh0-100UnSycamore Medical CenterComment on above:Performed By: #### [id number] ####[facility] LAB (BEAKER)[address] [place], [place] [address]ZIE WITH AUTO DIFFERENTIALon 35-14-7912Srajjmkvh (Bld) [#/Vol]0.03 10*3/uLNormal0.00-0.20UnSycamore Medical CenterComment on above:Performed By: #### [id number] ####[facility] ([facility])[address] [place], [place] [address]Jkqqbcldl/100 WBC (Bld)0.4 %Normal 0.0-1.0UnSycamore Medical CenterComment on above:Performed By: #### [id number] ####[facility] ([facility]ER)[address] [place] [address] Eosinophils (Bld) [#/Vol]0.24 10*3/uLNormal0.00-0.50UnSycamore Medical CenterComment on above:Performed By: #### [id number] ####[facility] ([facility])[address] [place], [place] [address]Xltmtagjccd/100 WBC (Bld)3.0 %Normal 0.0-6.0UnSycamore Medical CenterComment on above:Performed By: #### [id number] ####[facility] ([facility])[address] [place] [address] Erythrocyte distribution width (RBC) [Ratio]16.5 %High11.5-15.0UnSycamore Medical CenterComment on above:Performed By: #### [id number] ####[facility] ([facility])[address] [place], [place] [address]JIEHEQFFLWD MEAN CORPUSCULAR HEMOGLOBIN CONCENTRATION (G/DL) BY KBEWJQZDD72.4 g/dLLow32.0-35.0 [facility] HospitalComment on above:Performed By: #### [id number] ####[facility] ([facility])[address] [place], [place] [address]Oohcairnjl (Bld) [Volume fraction]29.3 %Low36.0-48.0UnSycamore Medical CenterComment on above:Performed By: #### [id number] ####[facility] ([facility])[address] [place], [place] [address]Iradptpedj (Bld) [Mass/Vol]8.9 g/dLLow12.0-15.0UnSycamore Medical CenterComment on above:Performed By: #### [id number] ####[facility] ([facility])[address] [place], [place] [address]Ijeornav granulocytes (Bld) [#/Vol]0.07 10*3/uLNormal0.00-0.20UnSycamore Medical Center Comment on above:Performed By: #### [id number] ####[facility] ([facility])[address] [facility] [place], [place] [address]Zpinrmol granulocytes/100 WBC (Bld)0.9 %Normal 0.0-1.0UnSycamore Medical CenterComment on above:Performed By: #### [id number] ####[facility] ([facility])[address] [place] [address] Lymphocytes (Bld) [#/Vol]1.34 10*3/uLNormal1.20-4.00UnSycamore Medical CenterComment on above:Performed By: #### [id number] ####[facility] ([facility])[address] [place], [place] [address]Hhmbuclwcyi/100 WBC (Bld)16.5 %Low 20.0-45.0UnSycamore Medical CenterComment on above:Performed By: #### [id number] ####[facility] ([facility])[address] [facility] [facility] [address]OUA (RBC) [Entitic mass]28.2 vmEjcmiu76.0-33.0UnSycamore Medical Center Comment on above:Performed By: #### [id number] ####[facility] ([facility])[address] [place], [place] [address]EDA (RBC) [Entitic vol]92.7 sZAoxkxr76.0-98.0 [facility] HospitalComment on above:Performed By: #### [id number] ####[facility] ([facility])[address] [facility] [place] [place] [address]Dnfvrtjtz (Bld) [#/Vol]0.52 10*3/uLNormal0.10-1.00UnSycamore Medical CenterComment on above:Performed By: #### [id number] ####[facility] (BE[facility]ER)[address] [facility] [place] [address]Hrjlghrxk/100 WBC (Bld)6.4 %Normal5.0-12.0UnSycamore Medical CenterComment on above:Performed By: #### [id number] ####[facility] ([facility])[address] [place] [address]Irvhhtlgkbg (Bld) [#/Vol] 5.91 10*3/uLNormal1.60-7.60UnSycamore Medical CenterComment on above: Performed By: #### [id number] ####[facility] ([facility])[address] [place] [address]Lktmryopmed/100 WBC (Bld)72.8 %High40.0-72.0UnSycamore Medical CenterComment on above:Performed By: #### [id number] ####[facility] ([facility])[address] [place] [address]RQRB (PER 100 WBCS) BY AUTOMATED COUNT0.0 %Xjyxjp4JicwpxnuzpSycamore Medical CenterComment on above: Performed By: #### [id number] ####[facility] ([facility])[address] [place] [address]XHQZITVIF (10*3/UL) IN BLOOD AUTOMATED EWNWG967 10*3/uLNormal 150-400UnSycamore Medical CenterComment on above:Performed By: #### [id number] ####[facility] ([facility])[address] [place] [address]EKN (Bld) [#/Vol]3.16 10*6/uLLow3.80-5.00UnSycamore Medical CenterComment on above:Performed By: #### [id number] ####[facility] ([facility])[address] [place], [place] [address]UUG (Bld) [#/Vol]8.11 10*3/uLNormal4.00-10.60UnSycamore Medical CenterComment on above:Performed By: #### [id number] ####[facility] ([facility])[address] [place], [place] [address]LQTDVVPMLBYRL METABOLIC PANELon 54-42-3602Xxaobuo [Mass/Vol]3.4 g/dLLow3.5-5.7UnSycamore Medical CenterComment on above:Performed By: #### [id number] ####[facility] ([facility])[address] [place] [address]LGA [Catalytic activity/Vol]90 U/L Ansowr82-259YfwjytzbynSycamore Medical CenterComment on above:Performed By: #### [id number] ####[facility] ([facility])[address] [place] [address]RGQ [Catalytic activity/Vol]5 U/LLow7-52UnSycamore Medical CenterComment on above:Performed By: #### [id number] ####[facility] ([facility])[address] [place], [place] [address]Ljyfo gap [Moles/Vol]9 mmol/LNormal7-20UnSycamore Medical CenterComment on above:Performed By: #### [id number] ####[facility] ([facility])[address] [place], [place] [address]PKZ [Catalytic activity/Vol]11 U/LLow 13-39UnSycamore Medical CenterComment on above:Performed By: #### [id number] ####[facility] ([facility])[address] [place], [place] [address]Pktglxami [Mass/Vol]0.5 mg/dLNormal0.3-1.0UnSycamore Medical CenterComment on above:Performed By: #### [id number] ####[facility] ([facility])[address] [place], [place] [address]Ntfnkrj [Mass/Vol]8.3 mg/dLLow8.6-10.3UnSycamore Medical CenterComment on above:Performed By: #### [id number] ####[facility] ([facility])[address] [place], [place] [address]Vqrecmyx [Moles/Vol]101 mmol/LNormal 98-107UnSycamore Medical CenterComment on above:Performed By: #### [id number] ####[facility] ([facility])[address] [place], [place] [address]JI6 [Moles/Vol]26 mmol/ZVvyjox18-89TznizemtjkSycamore Medical CenterComment on above:Performed By: #### [id number] ####[facility] ([facility])[address] [place] [address]Vcganvciqk [Mass/Vol]1.28 mg/dLHigh0.60-1.20UnSycamore Medical CenterComment on above:Performed By: #### [id number] ####[facility] ([facility])[address] [place] [address]NYAESJKXIE FILTRATION RATE ML/MIN/1.73 SQ M.CKBEZZNPP28.4 mL/min/1.73m*2Low>60.0UnSycamore Medical CenterComment on above:Result Comment: [facility]???s estimated glomerular filtration rate (eGFR) will no [...] potential consequences that do not disproportionately affect anyone group of individuals.Performed By: #### [id number] ####[facility] ([facility])[address] [place] [address]Zcmzzxh [Mass/Vol]95 mg/hNYlcrgd22-977RxbhprmosbSycamore Medical CenterComment on above:Performed By: #### [id number] ####[facility] ([facility])[address] [place] [address]Alkdqmbus [Moles/Vol]4.4 mmol/LNormal3.5-5.1UnSycamore Medical CenterComment on above:Performed By: #### [id number] ####[facility] ([facility])[address] [place] [address]Dpqjigh [Mass/Vol]5.7 g/dLLow 6.0-8.3UnSycamore Medical CenterComment on above:Performed By: #### [id number] ####[facility] ([facility])[address] [facility] [place] [address]Czmjkc [Moles/Vol]132 mmol/JOal286-037AmvhvwjojdSycamore Medical CenterComment on above:Performed By: #### [id number] ####[facility] ([facility])[address] [place], [place] [address]Aggn nitrogen [Mass/Vol]21 mg/dLNormal7-25UnSycamore Medical CenterComment on above:Performed By: #### [id number] ####[facility] ([facility])[address] [facility] [address]BIZJ NITROGEN/CREATININE (MASS RATIO) IN SER/PLAS16.4NormalUniversBerger HospitalComment on above: Performed By: #### [id number] ####[facility] ([facility])[address] [place], [place] [address]SAAPPPAmq 14-50-5019IQLXUCUZclnaxFikzdfycmp [facility] CONSULTNormalUniversity of Covenant Children'S HospitalCONSULTNormalUniversity Genesis HospitalHPon 71-74-5570OPNiiwrzSspgmfvnkc [facility] HPNormalUniversity Genesis HospitalLIPID PANELon 78-59-2154PUVT/HDL3.3 mg/dLNormalUniAshtabula General HospitalComment on above:Performed By: #### [id number] ####[facility] ([facility])[address] [place] [address] Cholesterol [Mass/Vol]148 mg/yJWlrodv892-029TbhrnmspcrSycamore Medical Center Comment on above:Performed By: #### [id number] ####[facility] ([facility])[address] [facility] [address]Fyyavzdau [Mass/Vol]100 mg/bFIiadvd72-347GsmuvngmcvSycamore Medical CenterComment on above:Result Comment: TRIGLYCERIDE REFERENCE RANGE:20 YEARS AND OLDER CARDIOVASCULAR RISKLESS THAN 150 mg/dL LOW KNFY974 TO 199 mg/dL BORDERLINE SBLU892 mg/dL AND GREATER HIGH RISKPerformed By: #### [id number] ####[facility] ([facility])[address] [place], [place] [address]Wnkajwbam [Mass/Vol]83 mg/dLNormal0-160UnSycamore Medical CenterComment on above:Performed By: #### [id number] ####[facility] ([facility])[address] [place], [place] [address]Hwyyxgejf [Mass/Vol]45 mg/xWDakmsf53-80JoblntmkndSycamore Medical CenterComment on above:Performed By: #### [id number] ####[facility] ([facility])[address] [place], [place] [address]ONK HDL CHOL. (LDL+VLDL)103Normal [facility] HospitalComment on above:Performed By: #### [id number] ####[facility] ([facility])[address] [place], [place] [address]AXTYR VLDL-C20 mg/dLNormal0-40UnSycamore Medical CenterComment on above:Performed By: #### [id number] ####[facility] ([facility])[address] [place] [address] MAGNESIUMon 99-53-4615Triwzkpsb [Mass/Vol]2.6 mg/dLNormal1.9-2.7UnSycamore Medical CenterComment on above:Performed By: #### [id number] ####[facility] ([facility])[address] [place], [place] [address]UPHKLYNF COUNTon 55-05-1647FHHFQPPWA (10*3/UL) IN BLOOD AUTOMATED LOSAM953 10*3/cOSwaqbo598-755 [facility] HospitalComment on above:Performed By: #### [id number] ####[facility] ([facility])[address] [place], [place] [address]TVBR GLUCOSE METER UNSOLICITED RESULTSon 15-79-5745Preghqg [Mass/Vol]117 mg/dSPfef31-144 [facility] HospitalComment on above:Order Comment: Waived Testing in the ED is performed under the ED CLIA certificate #[id number].Result Comment: shamarPerformed By: #### [id number] ####[facility] ([facility])[address] [place], [place] [address]Twpzaej [Mass/Vol]97 mg/fAGdmiho93-283KclgjjxirgSycamore Medical CenterComment on above:Order Comment: Waived Testing in the ED is performed under the ED CLIA certificate #[id number].Result Comment: shamar Performed By: #### [id number] ####[facility] ([facility])[address] [place], [place] [address]Jpncsft [Mass/Vol]91 mg/xHZwmmqr07-704KsddzadtizSycamore Medical CenterComment on above:Order Comment: Waived Testing in the ED is performed under the ED CLIA certificate #[id number].Result Comment: [email or web address] Performed By: #### [id number] ####[facility] ([facility])[address] [place], [place] [address]Scghtis [Mass/Vol]93 mg/oUQobfwq67-603XwbwezknodSycamore Medical CenterComment on above:Order Comment: Waived Testing in the ED is performed under the ED CLIA certificate #[id number].Result Comment: [email or web address] Performed By: #### [id number] ####[facility] ([facility])[address] [place], [place] [address]M9, FREEon 35-67-0654XCLHKCLCP (T4) FREE (NG/DL) IN SER/PLAS 1.61 ng/dLNormal0.71-1.85UnSycamore Medical CenterComment on above: Performed By: #### [id number] ####[facility] ([facility])[address] [place], [place] [address]XIRYVWNK Ion 43-88-9718Obyyjcrg I.cardiac [Mass/Vol]0.06 ng/mLHigh0.00-0.04UnSycamore Medical CenterComment on above:Performed By: #### [id number] ####[facility] ([facility])[address] [place] [address] Troponin I.cardiac [Mass/Vol]0.08 ng/mLHigh0.00-0.04UnSycamore Medical CenterComment on above:Performed By: #### [id number] ####[facility] ([facility])[address] [place] [address]Uvfunhqb I.cardiac [Mass/Vol]0.07 ng/mLHigh0.00-0.04UnSycamore Medical CenterComment on above:Performed By: #### [id number] ####[facility] ([facility])[address] [place] [address] TSHon 03-26-5701MPGRLBIBZZD (MIU/L) IN SER/PLAS BY DETECTION LIMIT <= 0.05 MIU/L 5.42 mIU/LNormal0.34-5.60UnSycamore Medical CenterComment on above: Performed By: #### [id number] ####[facility] ([facility])[address] [place] [address]rw 84-06-170543Mls patient is Moderately Stable - Low risk of patient condition declining or worsening The patient's goals for the shift include sleep/rest The clinical goals for the shift include VSS/restNormalUniversity Genesis Hospital30NormalUniversity Genesis HospitalBASIC METABOLIC PANELon 53-41-9185Gbvqw gap [Moles/Vol]8 mmol/LNormal7-20UnSycamore Medical CenterComment on above:Performed By: #### [id number] ####[facility] ([facility])[address] [place] [address]Upryfjy [Mass/Vol]8.0 mg/dLLow8.6-10.3 [facility] HospitalComment on above:Performed By: #### [id number] ####[facility] ([facility])[address] [place] [address]Hrmyycpr [Moles/Vol]106 mmol/EPtguuu48-127IuegjybsirSycamore Medical CenterComment on above:Performed By: #### [id number] ####[facility] ([facility])[address] [place] [address]OU6 [Moles/Vol]28 mmol/ZGjzrnl88-46JccgpoeelvSycamore Medical CenterComment on above:Performed By: #### [id number] ####[facility] ([facility])[address] [place] [address]Xokkyjhkko [Mass/Vol]1.39 mg/dLHigh 0.60-1.20UnSycamore Medical CenterComment on above:Performed By: #### [id number] ####[facility] ([facility])[address] [place] [address]TRLXQXKJPI FILTRATION RATE ML/MIN/1.73 SQ M.KTEKPGHMW00.4 mL/min/1.73m*2Low>60.0UnSycamore Medical CenterComment on above:Result Comment: [facility]???s estimated glomerular filtration rate (eGFR) will no [...] potential consequences that do not disproportionately affect anyone group of individuals. Performed By: #### [id number] ####[facility] ([facility])[address] [place] [address]Obdvjrp [Mass/Vol]91 mg/tXHrqxas32-213QhynhmmzkoSycamore Medical CenterComment on above:Performed By: #### [id number] ####[facility] ([facility])[address] [place] [address]Fbuepglco [Moles/Vol]4.3 mmol/LNormal 3.5-5.1UnSycamore Medical CenterComment on above:Performed By: #### [id number] ####[facility] ([facility])[address] [place] [address]Qxxqej [Moles/Vol]138 mmol/FYerhtu685-614LbjuatwcvxSycamore Medical CenterComment on above:Performed By: #### [id number] ####[facility] ([facility])[address] [place], [place] [address]Cfqq nitrogen [Mass/Vol]29 mg/dLHigh7-25UnSycamore Medical CenterComment on above:Performed By: #### [id number] ####[facility] ([facility])[address] [place], [place] [address]TDJK NITROGEN/CREATININE (MASS RATIO) IN SER/PLAS20.9NormalUniversBerger HospitalComment on above: Performed By: #### [id number] ####[facility] ([facility])[address] [place] [address]TSZ WITH AUTO DIFFERENTIALon 89-96-1766Qhxakfpap (Bld) [#/Vol]0.03 10*3/uLNormal0.00-0.20UnSycamore Medical CenterComment on above: Performed By: #### [id number] ####[facility] ([facility])[address] [place], [place] [address]Yopzobecv/100 WBC (Bld)0.3 %Normal0.0-1.0UnSycamore Medical CenterComment on above:Performed By: #### [id number] ####[facility] ([facility])[address] [place], [place] [address]Pnmvtykitgz (Bld) [#/Vol]0.19 10*3/uL Normal0.00-0.50UnSycamore Medical CenterComment on above:Performed By: #### [id number] ####[facility] ([facility])[address] [address] Eosinophils/100 WBC (Bld)1.8 %Normal0.0-6.0UnSycamore Medical Center Comment on above:Performed By: #### [id number] ####[facility] ([facility])[address] [place], [place] [address]Oizyzgqwdmy distribution width (RBC) [Ratio]17.0 % High11.5-15.0UnSycamore Medical CenterComment on above:Performed By: #### [id number] ####[facility] ([facility])[address] [place] [address] ERYTHROCYTE MEAN CORPUSCULAR HEMOGLOBIN CONCENTRATION (G/DL) BY QWUHBRVGY72.5 g/dLLow32.0-35.0UnSycamore Medical CenterComment on above:Performed By: #### [id number] ####[facility] ([facility])[address] [place], [place] [address]Jwqruggtle (Bld) [Volume fraction]27.2 %Low36.0-48.0UnSycamore Medical CenterComment on above:Performed By: #### [id number] ####[facility] ([facility])[address] [place], [place] [address]Bomgufmhit (Bld) [Mass/Vol]8.3 g/dLLow 12.0-15.0UnSycamore Medical CenterComment on above:Performed By: #### [id number] ####[facility] ([facility])[address] [place], [place] [address]Kdtemhof granulocytes (Bld) [#/Vol]0.04 10*3/uLNormal0.00-0.20UnSycamore Medical CenterComment on above:Performed By: #### [id number] ####[facility] ([facility])[address] [place], [place] [address]Kwkzqwio granulocytes/100 WBC (Bld)0.4 %Normal0.0-1.0UnSycamore Medical CenterComment on above:Performed By: #### [id number] ####[facility] ([facility])[address] [place] [address] Lymphocytes (Bld) [#/Vol]1.44 10*3/uLNormal1.20-4.00UnSycamore Medical CenterComment on above:Performed By: #### [id number] ####[facility] ([facility])[address] [place], [place] [address]Swsmiiinxse/100 WBC (Bld)13.6 %Low 20.0-45.0UnSycamore Medical CenterComment on above:Performed By: #### [id number] ####[facility] ([facility])[address] [place] [address]ZMM (RBC) [Entitic mass]28.3 qlUjnwgo60.0-33.0UnSycamore Medical Center Comment on above:Performed By: #### [id number] ####[facility] ([facility])[address] [place] [address]CUK (RBC) [Entitic vol]92.8 eDPjnaxc25.0-98.0 [facility] HospitalComment on above:Performed By: #### [id number] ####[facility] ([facility])[address] [place], [place] [address]Dwkizzxoo (Bld) [#/Vol]0.73 10*3/uLNormal0.10-1.00UnSycamore Medical CenterComment on above:Performed By: #### [id number] ####[facility] ([facility])[address] [place] [address]Shgojeqam/100 WBC (Bld)6.9 %Normal5.0-12.0UnSycamore Medical CenterComment on above:Performed By: #### [id number] ####[facility] ([facility])[address] [place], [place] [address]Utwqdyjqoio (Bld) [#/Vol] 8.12 10*3/uLHigh1.60-7.60UnSycamore Medical CenterComment on above: Performed By: #### [id number] ####[facility] ([facility])[address] [place] [address]Yyhfwvjpkry/100 WBC (Bld)77.0 %High40.0-72.0UnSycamore Medical CenterComment on above:Performed By: #### [id number] ####[facility] ([facility])[address] [place] [address]QJND (PER 100 WBCS) BY AUTOMATED COUNT0.0 %Noexov2UzgvwhctkcSycamore Medical CenterComment on above: Performed By: #### [id number] ####[facility] ([facility])[address] [place] [address]MUXMWDXYL (10*3/UL) IN BLOOD AUTOMATED FRZIY641 10*3/uLLow 150-400UnSycamore Medical CenterComment on above:Performed By: #### [id number] ####[facility] ([facility])[address] [place] [address]NOU (Bld) [#/Vol]2.93 10*6/uLLow3.80-5.00UnSycamore Medical CenterComment on above:Performed By: #### [id number] ####[facility] ([facility])[address] [place] [address]GKH (Bld) [#/Vol]10.55 10*3/uLNormal4.00-10.60UnSycamore Medical CenterComment on above:Performed By: #### [id number] ####[facility] ([facility])[address] [place] [address]JLjn 49-27-2784URZqqqsm [facility] HospitalMAGNESIUMon 34-99-3944Luhuvvrrf [Mass/Vol]2.2 mg/dLNormal1.9-2.7UnSycamore Medical CenterComment on above:Performed By: #### [id number] ####[facility] ([facility])[address] [place] [address]DSQNHPHXyz 09-41-9023OEZWSBBTYssxhuVapwpyclqf of [facility] NURSNOTENormalUniversity Genesis HospitalOrders Onlyon 01-80-3376Nqrxgi [id number] Shayy Maynard 1945 F Date Provider Department Center 01/31/2024 [facility] [place] No family history on fileNormalUniversBerger HospitalPHOSPHORUSon 78-43-6767Igbjzsmyc [Mass/Vol]3.3 mg/dLNormal2.5-5.0UnSycamore Medical CenterComment on above:Performed By: #### [id number] ####[facility] ([facility])[address] [place], [place] [address]KWXY GLUCOSE METER UNSOLICITED RESULTS on 38-01-9119Fyjmwuu [Mass/Vol]210 mg/vFMgwt55-041YfhwmxpoqeSycamore Medical CenterComment on above:Order Comment: Waived Testing in the ED is performed under the ED CLIA certificate #[id number].Result Comment: lclzmgq8Lwomoykzb By: #### [id number] ####[facility] ([facility])[address] [place] [address] Glucose [Mass/Vol]118 mg/yMDhwf34-249XzxvzpbpwnSycamore Medical CenterComment on above:Order Comment: Waived Testing in the ED is performed under the ED CLIA certificate #[id number].Result Comment: [id number] By: #### [id number] ####[facility] ([facility])[address] [place], [place] [address]MZAMR METABOLIC PANELon 24-69-8354Xvpcy gap [Moles/Vol]7 mmol/LNormal7-20UnSycamore Medical CenterComment on above:Performed By: #### [id number] ####[facility] ([facility])[address] [place], [place] [address]Widbxhc [Mass/Vol]8.0 mg/dLLow8.6-10.3 [facility] HospitalComment on above:Performed By: #### [id number] ####[facility] ([facility])[address] [place], [place] [address]Vuovwjwk [Moles/Vol]107 mmol/ETxesmo35-448RpnndwmttlSycamore Medical CenterComment on above:Performed By: #### [id number] ####[facility] ([facility])[address] [place], [place] [address]CZ2 [Moles/Vol]27 mmol/WJjdwxl40-27QxcuufpwlkSycamore Medical CenterComment on above:Performed By: #### [id number] ####[facility] ([facility])[address] [place] [address]Ifpmhajeml [Mass/Vol]1.54 mg/dLHigh 0.60-1.20UnSycamore Medical CenterComment on above:Performed By: #### [id number] ####[facility] ([facility])[address] [place] [address]JJLFAYZFPX FILTRATION RATE ML/MIN/1.73 SQ M.HHMVRCAAY73.9 mL/min/1.73m*2Low>60.0UnSycamore Medical CenterComment on above:Result Comment: [facility]???s estimated glomerular filtration rate (eGFR) will no [...] potential consequences that do not disproportionately affect anyone group of individuals. Performed By: #### [id number] ####[facility] ([facility])[address] [place] [address]Ztetgfo [Mass/Vol]124 mg/xUGaey26-133TquwkqleiwSycamore Medical CenterComment on above:Performed By: #### [id number] ####[facility] ([facility])[address] [place] [address]Achcgbgat [Moles/Vol]4.4 mmol/LNormal 3.5-5.1UnSycamore Medical CenterComment on above:Performed By: #### [id number] ####[facility] ([facility])[address] [place] [address]Ihpyxx [Moles/Vol]137 mmol/CJxcrfq589-737IxfhzokcdzSycamore Medical CenterComment on above:Performed By: #### [id number] ####[facility] ([facility])[address] [place] [address]Ucli nitrogen [Mass/Vol]25 mg/dLNormal7-25UnSycamore Medical CenterComment on above:Performed By: #### [id number] ####[facility] ([facility])[address] [facility] [address]CJYF NITROGEN/CREATININE (MASS RATIO) IN SER/PLAS16.2NormalUnSycamore Medical CenterComment on above: Performed By: #### [id number] ####[facility] ([facility])[address] [place], [place] [address]YCR WITH AUTO DIFFERENTIALon 39-37-6266Fkuxqgrwz (Bld) [#/Vol]0.02 10*3/uLNormal0.00-0.20UnSycamore Medical CenterComment on above: Performed By: #### [id number] ####[facility] ([facility])[address] [facility] [place] [address]Wntlaocoh/100 WBC (Bld)0.2 %Normal0.0-1.0UnSycamore Medical CenterComment on above:Performed By: #### [id number] ####[facility] ([facility])[address] [facility], [place] [address]Xzqutrlltmb (Bld) [#/Vol]0.06 10*3/uL Normal0.00-0.50UnSycamore Medical CenterComment on above:Performed By: #### [id number] ####[facility] ([facility])[address] [facility] [place] [address] Eosinophils/100 WBC (Bld)0.5 %Normal0.0-6.0UnSycamore Medical Center Comment on above:Performed By: #### [id number] ####[facility] ([facility])[address] [facility] [place] [address]Cqshjiuuqip distribution width (RBC) [Ratio]16.7 % High11.5-15.0UnSycamore Medical CenterComment on above:Performed By: #### [id number] ####[facility] ([facility])[address] [place] [address] ERYTHROCYTE MEAN CORPUSCULAR HEMOGLOBIN CONCENTRATION (G/DL) BY QXXYIKSAR88.5 g/dLLow32.0-35.0UnSycamore Medical CenterComment on above:Performed By: #### [id number] ####[facility] ([facility])[address] [place] [address]Pwbyvmruto (Bld) [Volume fraction]29.8 %Low36.0-48.0UnSycamore Medical CenterComment on above:Performed By: #### [id number] ####[facility] ([facility])[address] [place], [place] [address]Bmykqigsmj (Bld) [Mass/Vol]9.1 g/dLLow 12.0-15.0UnSycamore Medical CenterComment on above:Performed By: #### [id number] ####[facility] ([facility])[address] [place], [place] [address]Danephdd granulocytes (Bld) [#/Vol]0.07 10*3/uLNormal0.00-0.20UnSycamore Medical CenterComment on above:Performed By: #### [id number] ####[facility] ([facility])[address] [place], [place] [address]Vtnmkopr granulocytes/100 WBC (Bld)0.5 %Normal0.0-1.0UnSycamore Medical CenterComment on above:Performed By: #### [id number] ####[facility] ([facility])[address] [place] [address] Lymphocytes (Bld) [#/Vol]1.15 10*3/uLLow1.20-4.00UnSycamore Medical CenterComment on above:Performed By: #### [id number] ####[facility] ([facility])[address] [place], [place] [address]Hqxflsbwxlw/100 WBC (Bld)8.6 %Low 20.0-45.0UnSycamore Medical CenterComment on above:Performed By: #### [id number] ####[facility] ([facility])[address] [place], [place] [address]IVO (RBC) [Entitic mass]28.4 chDepsld44.0-33.0UnSycamore Medical Center Comment on above:Performed By: #### [id number] ####[facility] ([facility])[address] [place] [address]OLB (RBC) [Entitic vol]93.1 zMBbcrnt21.0-98.0 [facility] HospitalComment on above:Performed By: #### [id number] ####[facility] ([facility])[address] [place] [address]Tlakojiuw (Bld) [#/Vol]0.80 10*3/uLNormal0.10-1.00UnSycamore Medical CenterComment on above:Performed By: #### [id number] ####[facility] ([facility])[address] [place] [address]Ioglnjxqo/100 WBC (Bld)6.0 %Normal5.0-12.0UnSycamore Medical CenterComment on above:Performed By: #### [id number] ####[facility] ([facility])[address] [place] [address]Zzshkzfqmlo (Bld) [#/Vol] 11.20 10*3/uLHigh1.60-7.60UnSycamore Medical CenterComment on above: Performed By: #### [id number] ####[facility] ([facility])[address] [place] [address]Xwickmntitb/100 WBC (Bld)84.2 %High40.0-72.0UnSycamore Medical CenterComment on above:Performed By: #### [id number] ####[facility] ([facility])[address] [place] [address]JZGJ (PER 100 WBCS) BY AUTOMATED COUNT0.0 %Znmnra1UnvaeroujaSycamore Medical CenterComment on above: Performed By: #### [id number] ####[facility] ([facility])[address] [place] [address]KIAJDEKRB (10*3/UL) IN BLOOD AUTOMATED VAKIB097 10*3/uLNormal 150-400UnSycamore Medical CenterComment on above:Performed By: #### [id number] ####[facility] ([facility])[address] [place] [address]PWD (Bld) [#/Vol]3.20 10*6/uLLow3.80-5.00UnSycamore Medical CenterComment on above:Performed By: #### [id number] ####[facility] ([facility])[address] [place] [address]AHW (Bld) [#/Vol]13.30 10*3/uLHigh4.00-10.60UnSycamore Medical CenterComment on above:Performed By: #### [id number] ####[facility] ([facility])[address] [place] [address]EUjv 98-72-5684YGDaunpr [facility] HospitalMAGNESIUMon 16-74-49[address]Llqmzwmxq [Mass/Vol]2.4 mg/dLNormal1.9-2.7UnSycamore Medical CenterComment on above:Performed By: #### [id number] ####[facility] ([facility])[address] [place] [address]MXSBGXRDNUvi 27-94-1600Liiopyodn [Mass/Vol]3.6 mg/dLNormal2.5-5.0UnSycamore Medical CenterComment on above:Performed By: #### [id number] ####[facility] ([facility])[place], [place] [address]VLJI GLUCOSE METER UNSOLICITED RESULTSon 92-10-7303Svzknni [Mass/Vol]271 mg/xNAujz45-512CupztwwrhkSycamore Medical CenterComment on above:Order Comment: Waived Testing in the ED is performed under the ED CLIA certificate #[id number].Result Comment: [email or web address] Performed By: #### [id number] ####[facility] ([facility])[address] [place], [place] [address]Rvycbfr [Mass/Vol]130 mg/tVKyml47-369PnxljnpdojBarnesville Hospital CenterComment on above:Order Comment: Waived Testing in the ED is performed under the ED CLIA certificate #[id number].Result Comment: [email or web address] Performed By: #### [id number] ####[facility] ([facility])[address] [place], [place] [address]Aoknipz [Mass/Vol]166 mg/yYIcga98-232CgaezbzpebSycamore Medical CenterComment on above:Order Comment: Waived Testing in the ED is performed under the ED CLIA certificate #[id number].Result Comment: [email or web address] Performed By: #### [id number] ####[facility] ([facility])[address] [facility] [place], [place] [address]Pfqdajw [Mass/Vol]151 mg/qSHrtq18-620WgnfjtculwSycamore Medical CenterComment on above:Order Comment: Waived Testing in the ED is performed under the ED CLIA certificate #[id number].Result Comment: [email or web address] Performed By: #### [id number] ####[facility] ([facility])[address] [facility] [place], [place] [address]Yocqwgi [Mass/Vol]134 mg/uQVjif05-783FxkceadswwSycamore Medical CenterComment on above:Order Comment: Waived Testing in the ED is performed under the ED CLIA certificate #[id number].Result Comment: [email or web address] Performed By: #### [id number] ####[facility] ([facility])[address] [facility] [place], [place] [id number] [id number] patient is Moderately Stable - Low risk of patient condition declining or worsening The patient's goals for the shift include Pain Control The clinical goals for the shift include VSS, pain control, mobilityNormal [facility]30NormalUniversBerger Hospital ARTERIAL BLOOD GAS WITH CO-OXIMETRYon 55-22-3272Kftg excess Calc (Bld) [Moles/Vol]0.2 mmol/LNormal-2.0-3.0UnSycamore Medical CenterComment on above:Performed By: #### [id number] ####[facility] [id number] [place] [address] USACARBOXYHEMOGLOBIN/HEMOGLOBIN TOTAL % IN BLOOD1.4 %Normal 0.0-3.0UnSycamore Medical CenterComment on above:Performed By: #### [id number] ####[facility] RESPIRATORY [id number] [place] [address] USACO2 (Bld) [Partial pressure]38 mm[Hg]Mzeucy17-07IghqucoxsySycamore Medical Center Comment on above:Performed By: #### [id number] ####[facility] RESPIRATORY [id number] [place] [address] USADEOXYGENATED HEMOGLOBIN IN BLOOD0.4 %Low1-5 [facility] HospitalComment on above:Performed By: #### [id number] ####[facility] RESPIRATORY [id number] [place] [address] USAHCO3 (Bld) [Moles/Vol]24.6 mmol/ZEsldpr64.0-28.0UnSycamore Medical CenterComment on above:Performed By: #### [id number] ####[facility] RESPIRATORY [id number] [place] [address] USAHemoglobin (Bld) [Mass/Vol]10.5 g/dLLow11.7-17.4 [facility] HospitalComment on above:Performed By: #### [id number] ####[facility] RESPIRATORY [id number] [place] [address] QODGHT8Piejll [facility] HospitalComment on above:Performed By: #### [id number] ####[facility] RESPIRATORY [id number] [place] [address] [place] METHEMOGLOBIN/100 IN BLOOD0.7 %Normal0.0-1.5UnSycamore Medical Center Comment on above:Performed By: #### [id number] ####[facility] RESPIRATORY [id number] [place] [address] USAOxygen (Bld) [Partial pressure]116 mm[Hg]High 83-100UnSycamore Medical CenterComment on above:Performed By: #### [id number] ####[facility] RESPIRATORY [id number] [place] [address] USAOXYGEN SATURATION (%) IN ARTERIAL BLOOD99.6 %High94.0-98.0UnSycamore Medical CenterComment on above:Performed By: #### [id number] ####[facility] RESPIRATORY [id number] [facility] [place] [address] USAOXYGENATED HEMOGLOBIN IN BLOOD97.5 %High90.0-95.0UnSycamore Medical CenterComment on above:Performed By: #### [id number] ####[facility] RESPIRATORY [id number] [facility] [place] [address] [facility] pH (Bld)7.42 [pH]Normal7.35-7.45UnSycamore Medical CenterComment on above:Performed By: #### [id number] ####[facility] RESPIRATORY [id number] [place] [address] USASOURCE OF OXYGENNasal cannulaNormalUniversity Genesis HospitalComment on above:Performed By: #### [id number] ####[facility] RESPIRATORY [id number] [place] [address] [facility] UNITARTERIAL BLOOD GAS WITH IONIZED CALCIUMon 90-86-1240Uzyr excess Calc (Bld) [Moles/Vol]-0.6000 mmol/LNormal -2.0-3.0UnSycamore Medical CenterComment on above:Performed By: #### [id number] ####[facility] RESPIRATORY [id number] [place] [address] [place] CALCIUM IONIZED (MMOL/L) IN BLOOD1.19 mmol/LNormal1.15-1.33UnSycamore Medical CenterComment on above:Performed By: #### [id number] ####[facility] RESPIRATORY [id number] [facility] [place] [address] USACO2 (Bld) [Partial pressure]46 mm[Hg]Lciwtu23-97GxjpvtxwgzSycamore Medical CenterComment on above:Performed By: #### [id number] ####[facility] RESPIRATORY [id number] [facility] [place] [address] USAHCO3 (Bld) [Moles/Vol]25.4 mmol/OColcjv38.0-28.0UnSycamore Medical CenterComment on above:Performed By: #### [id number] ####[facility] RESPIRATORY [id number] [place] [address] ZIMRCC1LuloqpEmehzjmxrfCleveland Clinic Union HospitalComment on above:Performed By: #### [id number] ####[facility] RESPIRATORY [id number] [place] [address] USAOxygen (Bld) [Partial pressure]97 mm[Hg]Jkbnml67-119WsfpcxlklbSycamore Medical CenterComment on above:Performed By: #### [id number] ####[facility] RESPIRATORY [id number] [place] [address] USAOXYGEN SATURATION (%) IN ARTERIAL BLOOD99.4 %High94.0-98.0UnSycamore Medical CenterComment on above:Performed By: #### [id number] ####[facility] RESPIRATORY [id number] [place] [address] USApH (Bld)7.35 [pH]Normal 7.35-7.45UnSycamore Medical CenterComment on above:Performed By: #### [id number] ####[facility] RESPIRATORY [id number] [place] [address] USASOURCE OF OXYGENNasal cannulaNoalUSalem City HospitalComment on above:Performed By: #### [id number] ####[facility] RESPIRATORY [id number] [place] [address] USABASIC METABOLIC PANELon 90-87-2231Zrwyt gap [Moles/Vol]11 mmol/LNormal7-20UnSycamore Medical CenterComment on above:Performed By: #### [id number] ####[facility] HOSPITAL LAB (BEAKER)[address] [place] [address] Calcium [Mass/Vol]8.0 mg/dLLow8.6-10.3UnSycamore Medical CenterComment on above:Performed By: #### [id number] ####[facility] HOSPITAL LAB (BEAKER)[address] [place], [place] [address]Vyfisajd [Moles/Vol]105 mmol/QBikmvq57-441CdjhkzwwscSycamore Medical CenterComment on above:Performed By: #### [id number] ####[facility] LAB ([facility])[address] [place] [address]JI3 [Moles/Vol]25 mmol/LNormal 21-31UnSycamore Medical CenterComment on above:Performed By: #### [id number] ####[facility] LAB ([facility])[address] [place] [address]Oomspupkrv [Mass/Vol]1.18 mg/dLNormal0.60-1.20UnSycamore Medical CenterComment on above:Performed By: #### [id number] ####[facility] LAB ([facility])[address] [place] [address]IFFUHSAONA FILTRATION RATE ML/MIN/1.73 SQ M.YEXHTTQFB70.7 mL/min/1.73m*2Low>60.0UnSycamore Medical CenterComment on above:Result Comment: [facility]???s estimated glomerular filtration rate (eGFR) will no [...] potential consequences that do not disproportionately affect anyone group of individuals.Performed By: #### [id number] ####[facility] LAB ([facility])[address] [place] [address]Jzhmcxi [Mass/Vol]204 mg/hESmwi05-396GctpcucmquSycamore Medical CenterComment on above:Performed By: #### [id number] ####[facility] LAB ([facility])[address] [place] [address]Aztwbcbvq [Moles/Vol]3.8 mmol/L Normal3.5-5.1UnSycamore Medical CenterComment on above:Performed By: #### [id number] ####[facility] LAB (BEAKER)[address] [place] [address] Sodium [Moles/Vol]137 mmol/GZrimjh893-241UckxmvkmiqSycamore Medical Center Comment on above:Performed By: #### [id number] ####[facility] LAB ([facility])[address] [place] [address]Dbuv nitrogen [Mass/Vol]21 mg/dLNormal7-25 [facility] HospitalComment on above:Performed By: #### [id number] ####[facility] LAB ([facility])[address] [place] [address]PJHI NITROGEN/CREATININE (MASS RATIO) IN SER/PLAS17.8NormalUniversBerger HospitalComment on above:Performed By: #### [id number] ####[facility] LAB ([facility])[address] [place] [address]AGFIKSY, IONIZEDon 54-21-7331ISQHBQE IONIZED (MMOL/L) IN BLOOD1.14 mmol/LLow1.15-1.33UnSycamore Medical CenterComment on above:Performed By: #### [id number] ####[facility] RESPIRATORY [id number] [place] [address] USACALCIUM IONIZED (MMOL/L) IN BLOOD1.19 mmol/L Normal1.15-1.33UnSycamore Medical CenterComment on above:Performed By: #### CALCIUM, IONIZED ####[facility] RESPIRATORY [id number] [place] [address] USACBCon 95-31-7852Ftaugyftkhu distribution width (RBC) [Ratio]16.1 %High 11.5-15.0UnSycamore Medical CenterComment on above:Performed By: #### [id number] ####[facility] LAB ([facility])[address] [place] [address] ERYTHROCYTE MEAN CORPUSCULAR HEMOGLOBIN CONCENTRATION (G/DL) BY OABCLCYLB00.2 g/yCQyepll74.0-35.0UnSycamore Medical CenterComment on above:Performed By: #### [id number] ####[facility] LAB ([facility])[address] [place] [address]Pfhrbbyxwp (Bld) [Volume fraction]30.7 %Low36.0-48.0UnSycamore Medical CenterComment on above:Performed By: #### [id number] ####[facility] LAB ([facility])[address] [place] [address]Iqoldvnwwn (Bld) [Mass/Vol]9.9 g/dLLow 12.0-15.0UnSycamore Medical CenterComment on above:Performed By: #### [id number] ####[facility] LAB ([facility])[address] [place] [address]IKU (RBC) [Entitic mass]28.6 bxSphdrr18.0-33.0UnSycamore Medical CenterComment on above:Performed By: #### [id number] ####[facility] LAB ([facility])[address] [place] [address]JTD (RBC) [Entitic vol]88.7 vYPsgqud69.0-98.0UnSycamore Medical CenterComment on above:Performed By: #### [id number] ####[facility] LAB ([facility])[address] [place] [address]WTFODKOOM (10*3/UL) IN BLOOD AUTOMATED NFULT455 10*3/gQKpu502-161EqrdgndjpkSycamore Medical Center Comment on above:Performed By: #### [id number] ####[facility] LAB ([facility])[address] [place] [address]TGF (Bld) [#/Vol]3.46 10*6/uLLow3.80-5.00UnSycamore Medical CenterComment on above:Performed By: #### [id number] ####[facility] LAB ([facility])[address] [place] [address]GOQ (Bld) [#/Vol]13.37 10*3/uLHigh4.00-10.60UnSycamore Medical CenterComment on above: Performed By: #### [id number] ####[facility] LAB (BEAKER)[address] [place] [address]LNK WITH AUTO DIFFERENTIALon 68-46-3353Whdfsdeov (Bld) [#/Vol]0.02 10*3/uLNormal0.00-0.20UnSycamore Medical CenterComment on above:Performed By: #### [id number] ####[facility] LAB ([facility])[address] [place] [address]Talwdrlzi/100 WBC (Bld)0.2 %Normal0.0-1.0UnSycamore Medical CenterComment on above:Performed By: #### [id number] ####[facility] LAB ([facility])[address] [place] [address]Kgxsnilkcsc (Bld) [#/Vol]0.00 10*3/uL Normal0.00-0.50UnSycamore Medical CenterComment on above:Performed By: #### [id number] ####[facility] LAB ([facility])[address] [place] [address] Eosinophils/100 WBC (Bld)0.0 %Normal0.0-6.0UnSycamore Medical Center Comment on above:Performed By: #### [id number] ####[facility] LAB ([facility])[address] [place], [place] [address]Bukdmzryyij distribution width (RBC) [Ratio]16.1 % High11.5-15.0UnSycamore Medical CenterComment on above:Performed By: #### [id number] ####[facility] LAB ([facility])[address] [place] [address] ERYTHROCYTE MEAN CORPUSCULAR HEMOGLOBIN CONCENTRATION (G/DL) BY EXODQXLLX66.0 g/zTDesqwr03.0-35.0UnSycamore Medical CenterComment on above:Performed By: #### [id number] ####[facility] LAB ([facility])[address] [place], [place] [address]Obttommjvz (Bld) [Volume fraction]32.5 %Low36.0-48.0UnSycamore Medical CenterComment on above:Performed By: #### [id number] ####[facility] LAB ([facility])[address] [place], [place] [address]Ynrmxyhpjt (Bld) [Mass/Vol]10.4 g/dL Low12.0-15.0UnSycamore Medical CenterComment on above:Performed By: #### [id number] ####[facility] LAB ([facility])[address] [place] [address] Immature granulocytes (Bld) [#/Vol]0.05 10*3/uLNormal0.00-0.20UnSycamore Medical CenterComment on above:Performed By: #### [id number] ####[facility] LAB ([facility])[address] [place], [place] [address]Gppipoxm granulocytes/100 WBC (Bld)0.4 %Normal0.0-1.0UnSycamore Medical CenterComment on above: Performed By: #### [id number] ####[facility] LAB ([facility])[address] [place], [place] [address]Sbwkuvcxhck (Bld) [#/Vol]0.98 10*3/uLLow1.20-4.00UnSycamore Medical CenterComment on above:Performed By: #### [id number] ####[facility] LAB ([facility])[address] [place], [place] [address]Tmbdomdhfmd/100 WBC (Bld) 7.8 %Low20.0-45.0UnSycamore Medical CenterComment on above:Performed By: #### [id number] ####[facility] LAB ([facility])[address] [place], [place] [address]JAR (RBC) [Entitic mass]28.3 pmMsojam90.0-33.0UnSycamore Medical CenterComment on above:Performed By: #### [id number] ####[facility] LAB ([facility])[address] [place], [place] [address]JIY (RBC) [Entitic vol]88.3 fLNormal 82.0-98.0UnSycamore Medical CenterComment on above:Performed By: #### [id number] ####[facility] LAB ([facility])[address] [facility] [place] [address] Monocytes (Bld) [#/Vol]0.54 10*3/uLNormal0.10-1.00UnSycamore Medical CenterComment on above:Performed By: #### [id number] ####[facility] LAB ([facility])[address] [place], [place] [address]Hynngqscl/100 WBC (Bld)4.3 %Low 5.0-12.0UnSycamore Medical CenterComment on above:Performed By: #### [id number] ####[facility] LAB ([facility])[address] [facility] [place] [address] Neutrophils (Bld) [#/Vol]11.04 10*3/uLHigh1.60-7.60UnSycamore Medical CenterComment on above:Performed By: #### [id number] ####[facility] LAB ([facility])[address] [place], [place] [address]Kjdgmjnjcpu/100 WBC (Bld)87.3 %High 40.0-72.0UnSycamore Medical CenterComment on above:Performed By: #### [id number] ####[facility] LAB ([facility])[address] [place], [place] [address]ZJBG (PER 100 WBCS) BY AUTOMATED COUNT0.0 %Sscdoi9HjrleprnqqSycamore Medical Center Comment on above:Performed By: #### [id number] ####[facility] LAB ([facility])[address] [place], [place] [address]MQPWYACWV (10*3/UL) IN BLOOD AUTOMATED WZGMS167 10*3/hMLijoza405-317WnsxiwjyimSycamore Medical CenterComment on above: Performed By: #### [id number] ####[facility] LAB ([facility])[address] [place], [place] [address]JFD (Bld) [#/Vol]3.68 10*6/uLLow3.80-5.00UnSycamore Medical CenterComment on above:Performed By: #### [id number] ####[facility] LAB (BEAKER)[address] [place] [address]VYV (Bld) [#/Vol]12.63 10*3/uLHigh 4.00-10.60UnSycamore Medical CenterComment on above:Performed By: #### [id number] ####[facility] LAB ([facility])[address] [place] [address] Basophils (Bld) [#/Vol]0.01 10*3/uLNormal0.00-0.20UnSycamore Medical CenterComment on above:Performed By: #### [id number] ####[facility] LAB ([facility])[address] [place], [place] [address]Tmrtytpew/100 WBC (Bld)0.1 %Normal 0.0-1.0UnSycamore Medical CenterComment on above:Performed By: #### [id number] ####[facility] LAB ([facility])[address] [place] [address] Eosinophils (Bld) [#/Vol]0.00 10*3/uLNormal0.00-0.50UnSycamore Medical CenterComment on above:Performed By: #### [id number] ####[facility] LAB ([facility])[address] [place], [place] [address]Lqevffwmboq/100 WBC (Bld)0.0 %Normal 0.0-6.0UnSycamore Medical CenterComment on above:Performed By: #### [id number] ####[facility] LAB ([facility])[address] [place] [address] Erythrocyte distribution width (RBC) [Ratio]16.4 %High11.5-15.0UnSycamore Medical CenterComment on above:Performed By: #### [id number] ####[facility] LAB ([facility])[address] [place], [place] [address]IXZPJYVXWWH MEAN CORPUSCULAR HEMOGLOBIN CONCENTRATION (G/DL) BY BXAFWDLXS53.6 g/dLLow32.0-35.0 [facility] HospitalComment on above:Performed By: #### [id number] ####[facility] LAB (BEAKER)[address] [place], [place] [address]Smxjjhibrx (Bld) [Volume fraction]31.0 %Low36.0-48.0UnSycamore Medical CenterComment on above:Performed By: #### [id number] ####[facility] LAB (BEAKER)[address] [place], [place] [address]Tydzvibpvn (Bld) [Mass/Vol]9.8 g/dLLow12.0-15.0UnSycamore Medical CenterComment on above:Performed By: #### [id number] ####[facility] LAB (BEAKER)[address] [place], [place] [address]Ghyjfpip granulocytes (Bld) [#/Vol]0.05 10*3/uLNormal0.00-0.20UnSycamore Medical Center Comment on above:Performed By: #### [id number] ####[facility] LAB (BE[facility]ER)[address] [place], [place] [address]Sxlsmnnk granulocytes/100 WBC (Bld)0.5 %Normal 0.0-1.0UnSycamore Medical CenterComment on above:Performed By: #### [id number] ####[facility] LAB (BEAKER)[address] [place] [address] Lymphocytes (Bld) [#/Vol]0.58 10*3/uLLow1.20-4.00UnSycamore Medical CenterComment on above:Performed By: #### [id number] ####[facility] LAB (BEAKER)[address] [place], [place] [address]Wjkcwdukdfw/100 WBC (Bld)6.3 %Low 20.0-45.0UnSycamore Medical CenterComment on above:Performed By: #### [id number] ####[facility] LAB (BEAKER)[address] [place], [place] [address]FKV (RBC) [Entitic mass]28.2 puBzukaq33.0-33.0UnSycamore Medical Center Comment on above:Performed By: #### [id number] ####[facility] LAB ([facility])[address] [place] [address]IGS (RBC) [Entitic vol]89.3 eTHzagat58.0-98.0 [facility] HospitalComment on above:Performed By: #### [id number] ####[facility] LAB ([facility])[address] [place] [address]Bpbvbgvzi (Bld) [#/Vol]0.21 10*3/uLNormal0.10-1.00UnSycamore Medical CenterComment on above:Performed By: #### [id number] ####[facility] LAB ([facility])[address] [place] [address]Nscgczrxl/100 WBC (Bld)2.3 %Low5.0-12.0UnSycamore Medical CenterComment on above:Performed By: #### [id number] ####[facility] LAB ([facility])[address] [facility] [place], [place] [address]Wagcsmkpqzn (Bld) [#/Vol]8.38 10*3/uL High1.60-7.60UnSycamore Medical CenterComment on above:Performed By: #### [id number] ####[facility] LAB ([facility])[address] [place] [address] Neutrophils/100 WBC (Bld)90.8 %High40.0-72.0UnSycamore Medical Center Comment on above:Performed By: #### [id number] ####[facility] LAB ([facility])[address] [place], [place] [address]ILIH (PER 100 WBCS) BY AUTOMATED COUNT0.0 %Normal0 [facility] HospitalComment on above:Performed By: #### [id number] ####[facility] LAB ([facility])[address] [place] [address]DUFBXOAGP (10*3/UL) IN BLOOD AUTOMATED [id number] 10*3/gJEly488-192BxdmfxudhnSycamore Medical CenterComment on above:Performed By: #### [id number] ####[facility] LAB ([facility])[address] [place], [place] [address]LXN (Bld) [#/Vol]3.47 10*6/uLLow 3.80-5.00UnSycamore Medical CenterComment on above:Performed By: #### [id number] ####[facility] LAB ([facility])[address] [place], [place] [address]USF (Bld) [#/Vol]9.23 10*3/uLNormal4.00-10.60UnSycamore Medical Center Comment on above:Performed By: #### [id number] ####[facility] LAB ([facility])[address] [place], [place] [address]JYQAMSLOETVQY METABOLIC PANELon 99-74-7325Kvnacnb [Mass/Vol]3.1 g/dLLow3.5-5.7UnSycamore Medical CenterComment on above: Performed By: #### [id number] ####[facility] LAB ([facility])[address] [place], [place] [address]SVR [Catalytic activity/Vol]60 U/DSdzfbk37-522WkxoikzpkgSycamore Medical CenterComment on above:Performed By: #### [id number] ####[facility] LAB ([facility])[address] [place], [place] [address]PME [Catalytic activity/Vol]4 U/LLow 7-52UnSycamore Medical CenterComment on above:Performed By: #### [id number] ####[facility] LAB ([facility])[address] [place], [place] [address]Ctjsj gap [Moles/Vol]9 mmol/LNormal7-20UnSycamore Medical CenterComment on above:Performed By: #### [id number] ####[facility] LAB ([facility])[address] [place], [place] [address]VJJ [Catalytic activity/Vol]11 U/QDit14-16FvpwuenorxSycamore Medical CenterComment on above:Performed By: #### [id number] ####[facility] LAB ([facility])[address] [place] [address]Hxhlpyitq [Mass/Vol]0.4 mg/dL Normal0.3-1.0UnSycamore Medical CenterComment on above:Performed By: #### [id number] ####[facility] LAB ([facility])[address] [place] [address] Calcium [Mass/Vol]8.0 mg/dLLow8.6-10.3UnSycamore Medical CenterComment on above:Performed By: #### [id number] ####[facility] LAB ([facility])[address] [place] [address]Beopcduz [Moles/Vol]108 mmol/EHlyf41-267QoxnheoclbSycamore Medical CenterComment on above:Performed By: #### [id number] ####[facility] ([facility])[address] [place] [address]GT5 [Moles/Vol]25 mmol/WWkcpro54-33 [facility] HospitalComment on above:Performed By: #### [id number] ####[facility] ([facility])[address] [place] [address]Ggnlkyrphe [Mass/Vol]1.06 mg/dLNormal0.60-1.20UnSycamore Medical CenterComment on above:Performed By: #### [id number] ####[facility] ([facility])[address] [place], [place] [address]BYMMTOCKJJ FILTRATION RATE ML/MIN/1.73 SQ M.RAKQVEOUE50.1 mL/min/1.73m*2Low>60.0UnSycamore Medical CenterComment on above:Result Comment: [facility]???s estimated glomerular filtration rate (eGFR) will no [...] potential consequences that do not disproportionately affect anyone group of individuals.Performed By: #### [id number] ####[facility] ([facility])[address] [place], [place] [address]Dztewao [Mass/Vol]133 mg/aMHqae30-618GjnibefavoSycamore Medical CenterComment on above:Performed By: #### [id number] ####[facility] ([facility])[address] [place], [place] [address]Pjdbtgrlo [Moles/Vol]4.2 mmol/L Normal3.5-5.1UnSycamore Medical CenterComment on above:Performed By: #### [id number] ####[facility] ([facility])[address] [place] [address] Protein [Mass/Vol]5.2 g/dLLow6.0-8.3UnSycamore Medical CenterComment on above:Performed By: #### [id number] ####[facility] ([facility])[address] [place], [place] [address]Zjmrrg [Moles/Vol]138 mmol/JHrihwh188-388DafomyqoqgSycamore Medical CenterComment on above:Performed By: #### [id number] ####[facility] ([facility])[address] [place], [place] [address]Sipy nitrogen [Mass/Vol]19 mg/dLNormal 7-25UnSycamore Medical CenterComment on above:Performed By: #### [id number] ####[facility] ([facility])[address] [place], [place] [address]SMLE NITROGEN/CREATININE (MASS RATIO) IN SER/PLAS17.9NormalUniversBerger HospitalComment on above:Performed By: #### [id number] ####[facility] ([facility])[address] [place], [place] [address]Dumjugr [Mass/Vol]3.3 g/dLLow3.5-5.7 [facility] HospitalComment on above:Performed By: #### [id number] ####[facility] ([facility])[address] [place], [place] [address]RKC [Catalytic activity/Vol]67 U/KMaplno34-190HgrqvrbhjySycamore Medical CenterComment on above:Performed By: #### [id number] ####[facility] ([facility])[address] [place], [place] [address]WWH [Catalytic activity/Vol]7 U/LNormal7-52UnSycamore Medical CenterComment on above:Performed By: #### [id number] ####[facility] ([facility])[address] [place], [place] [address]Xitpg gap [Moles/Vol]11 mmol/L Normal7-20UnSycamore Medical CenterComment on above:Performed By: #### [id number] ####[place] [facility] ([facility])[address] [place], [place] [address]XYT [Catalytic activity/Vol]14 U/XDfvtjs15-35TwgureueyqSycamore Medical Center Comment on above:Performed By: #### [id number] ####[facility] ([facility])[address] [place], [place] [address]Srbhktaks [Mass/Vol]0.4 mg/dLNormal0.3-1.0 [facility] HospitalComment on above:Performed By: #### [id number] ####[facility] ([facility])[address] [place], [place] [address]Mrmfzzm [Mass/Vol]8.4 mg/dLLow8.6-10.3UnSycamore Medical CenterComment on above:Performed By: #### [id number] ####[facility] ([facility])[address] [place], [place] [address]Ueypkedu [Moles/Vol]108 mmol/OQbeg61-544GelmyxjmxvSycamore Medical CenterComment on above:Performed By: #### [id number] ####[facility] ([facility])[address] [place], [place] [address]QM5 [Moles/Vol]25 mmol/ACbrhgg56-40 [facility] HospitalComment on above:Performed By: #### [id number] ####[facility] ([facility])[address] [place], [place] [address]Jqdoocvwuq [Mass/Vol]1.24 mg/dLHigh0.60-1.20UnSycamore Medical CenterComment on above:Performed By: #### [id number] ####[facility] ([facility])[address] [place] [address]FGHBPQPVTP FILTRATION RATE ML/MIN/1.73 SQ M.WLNXFIRMZ37.0 mL/min/1.73m*2Low>60.0UnSycamore Medical CenterComment on above:Result Comment: [facility]???s estimated glomerular filtration rate (eGFR) will no [...] potential consequences that do not disproportionately affect anyone group of individuals.Performed By: #### [id number] ####[facility] ([facility])[address] [place] [address]Lfvtlwz [Mass/Vol]146 mg/uWAmcl90-209QzsfadotdbSycamore Medical CenterComment on above:Performed By: #### [id number] ####[facility] ([facility])[address] [place] [address]Iuqkapknb [Moles/Vol]4.1 mmol/L Normal3.5-5.1UnSycamore Medical CenterComment on above:Performed By: #### [id number] ####[facility] ([facility])[address] [place] [address] Protein [Mass/Vol]5.7 g/dLLow6.0-8.3UnSycamore Medical CenterComment on above:Performed By: #### [id number] ####[facility] ([facility])[address] [place] [address]Ajrcwa [Moles/Vol]140 mmol/LVgnedv632-212OlsqdaptrvSycamore Medical CenterComment on above:Performed By: #### [id number] ####[facility] ([facility])[address] [place] [address]Vqkp nitrogen [Mass/Vol]21 mg/dLNormal 7-25UnSycamore Medical CenterComment on above:Performed By: #### [id number] ####[facility] ([facility])[address] [place] [address]BWXY NITROGEN/CREATININE (MASS RATIO) IN SER/PLAS16.9NormalUniversBerger HospitalComment on above:Performed By: #### [id number] ####[facility] ([facility])[address] [place] [address]SBC ABDOMEN W IV CONTRASTon 01-29-2024 CTA ABDOMEN W IV CONTRASTInvalid Interpretation CodeUnSycamore Medical CenterCTA CHEST W IV CONTRASTon 60-12-6875XNH CHEST W IV CONTRASTNormal [facility] HospitalLACTIC ACID WITH 4 HOUR REFLEXon 01-29-2024 LACTATE (MMOL/L) IN SER/PLAS0.9 mmol/LNormal0.5-2.2UnSycamore Medical CenterComment on above:Performed By: #### [id number] ####[facility] ([facility])[address] [place] [address]SOROMPC (MMOL/L) IN SER/PLAS1.6 mmol/L Normal0.5-2.2UnSycamore Medical CenterComment on above:Performed By: #### [id number] ####[facility] ([facility])[address] [place] [address] LIPASEon 61-08-4278KDMAFZ (U/L) IN SER/PLAS16 U/VTyofpi36-87PgkjqjffkhSycamore Medical CenterComment on above:Performed By: #### [id number] ####[facility] ([facility])[address] [place] [address]FANYOKNATyv 61-51-9091Sgrssegdr [Mass/Vol]2.4 mg/dLNormal1.9-2.7UnSycamore Medical CenterComment on above:Performed By: #### [id number] ####[facility] ([facility])[address] [place], [place] [address]Venxghmmi [Mass/Vol]2.5 mg/dLNormal1.9-2.7UnSycamore Medical CenterComment on above:Performed By: #### [id number] ####[facility] ([facility])[address] [place], [place] [address]Jvkhmulti [Mass/Vol]2.7 mg/dLNormal1.9-2.7UnSycamore Medical CenterComment on above:Performed By: #### [id number] ####[facility] ([facility])[address] [place] [address] PHOSPHORUSon 26-30-1423Vpxlemeuh [Mass/Vol]3.1 mg/dLNormal2.5-5.0UnSycamore Medical CenterComment on above:Performed By: #### [id number] ####[facility] ([facility])[address] [place], [place] [address]Lthmesupd [Mass/Vol]3.3 mg/dLNormal2.5-5.0UnSycamore Medical CenterComment on above:Performed By: #### [id number] ####[facility] ([facility])[address] [place] [address] Magnesium [Mass/Vol]4.2 mg/dLNormal2.5-5.0UnSycamore Medical Center Comment on above:Performed By: #### [id number] ####[facility] ([facility])[address] [place], [place] [address]RNHR GLUCOSE METER UNSOLICITED RESULTSon 01-29-2024 Glucose [Mass/Vol]127 mg/tRMxxw03-295CxialkjwusSycamore Medical CenterComment on above:Order Comment: Waived Testing in the ED is performed under the ED CLIA certificate #[id number].Result Comment: [id number] By: #### [id number] ####[facility] ([facility])[address] [place], [place] [address]Rgvqukz [Mass/Vol]157 mg/gXGiww37-704JjbpihwfcsSycamore Medical CenterComment on above:Order Comment: Waived Testing in the ED is performed under the ED CLIA certificate #[id number].Result Comment: [id number] By: #### [id number] ####[facility] ([facility])[address] [place], [place] [address]Ignpoou [Mass/Vol]177 mg/oVLmjg04-038IytahuvfmmSycamore Medical CenterComment on above:Order Comment: Waived Testing in the ED is performed under the ED CLIA certificate #[id number].Result Comment: [id number] By: #### [id number] ####[facility] ([facility])[address] [place], [place] [address]Mmqghag [Mass/Vol]192 mg/sKDaui88-820NgujltsvbnSycamore Medical CenterComment on above:Order Comment: Waived Testing in the ED is performed under the ED CLIA certificate #[id number].Result Comment: [id number] By: #### [id number] ####[facility] ([facility])[address] [place], [place] [address]EVDGKMCLR, WHOLE BLOODon 59-09-1263Tdiunzhdt [Moles/Vol]4.0 mmol/LNormal3.5-5.1UnSycamore Medical CenterComment on above:Performed By: #### POTASSIUM, WHOLE BLOOD ####[facility] RESPIRATORY [id number] [place] [address] USASODIUM, WHOLE BLOODon 11-21-9049NAHBNF, WHOLE HLAHS697Ndskvc947-065UqqwwtpbwtSycamore Medical CenterComment on above:Performed By: #### SODIUM, WHOLE BLOOD ####[facility] RESPIRATORY [id number] [place] [address] USATROPONIN Ion 01-29-2024 Troponin I.cardiac [Mass/Vol]0.02 ng/mLNormal0.00-0.04UnSycamore Medical CenterComment on above:Performed By: #### [id number] ####[facility] ([facility])[address] [place], [place] [address]Svbictop I.cardiac [Mass/Vol]0.07 ng/mLHigh0.00-0.04UnSycamore Medical CenterComment on above:Performed By: #### [id number] ####[facility] ([facility])[address] [place] [address] Troponin I.cardiac [Mass/Vol]0.03 ng/mLNormal0.00-0.04UnSycamore Medical CenterComment on above:Performed By: #### [id number] ####[facility] ([facility])[address] [place], [place] [address]lj 15-03-897284XsuujkQsschifuxd of [place] Medical Pdkyve18PtgrskQoiqpfbmasBerger HospitalANESon 91-61-1915MUBZGlkfznKzhovzdnfq of [place] Medical CenterANESNormalUniversBerger HospitalARTERIAL BLOOD GAS WITH CO-OXIMETRYon 53-33-5076Crum excess Calc (Bld) [Moles/Vol]-2.0000 mmol/LNormal-2.0-3.0UnSycamore Medical CenterComment on above:Performed By: #### [id number] ####[facility] RESPIRATORY [id number] [place] [address] USACARBOXYHEMOGLOBIN/HEMOGLOBIN TOTAL % IN BLOOD1.9 %Normal0.0-3.0UnSycamore Medical CenterComment on above: Performed By: #### [id number] ####[facility] RESPIRATORY [id number] [place] [address] USACO2 (Bld) [Partial pressure]52 mm[Hg]Fxhf21-42PrvtgjokypSycamore Medical CenterComment on above:Performed By: #### [id number] ####[facility] RESPIRATORY [id number] [place] [address] USADEOXYGENATED HEMOGLOBIN IN BLOOD0.9 %Low1-5UnSycamore Medical CenterComment on above:Performed By: #### [id number] ####[facility] RESPIRATORY [id number] [place] [address] USAHCO3 (Bld) [Moles/Vol]25.0 mmol/FIisfni53.0-28.0UnSycamore Medical Center Comment on above:Performed By: #### [id number] ####[facility] RESPIRATORY [id number] [facility] [place] [address] USAHemoglobin (Bld) [Mass/Vol]11.1 g/dLLow 11.7-17.4UnSycamore Medical CenterComment on above:Performed By: #### [id number] ####[facility] RESPIRATORY [id number] [address] [facility] [place] [place] [address] USALPM3 NormalUnSycamore Medical CenterComment on above:Performed By: #### [id number] ####[facility] RESPIRATORY [id number] [facility] [place] [address] [facility] METHEMOGLOBIN/100 IN BLOOD0.9 %Normal0.0-1.5UnSycamore Medical Center Comment on above:Performed By: #### [id number] ####[facility] RESPIRATORY [id number] [facility] [place] [address] USAOxygen (Bld) [Partial pressure]103 mm[Hg]High 83-100UnSycamore Medical CenterComment on above:Performed By: #### [id number] ####[facility] RESPIRATORY [id number] [facility] [place] [address] USAOXYGEN SATURATION (%) IN ARTERIAL BLOOD99.1 %High94.0-98.0UnSycamore Medical CenterComment on above:Performed By: #### [id number] ####[facility] RESPIRATORY [id number] [facility] [place] [address] USAOXYGENATED HEMOGLOBIN IN BLOOD96.3 %High90.0-95.0UnSycamore Medical CenterComment on above:Performed By: #### [id number] ####[facility] RESPIRATORY [id number] [place] [address] [facility] pH (Bld)7.29 [pH]Low7.35-7.45UnSycamore Medical CenterComment on above:Performed By: #### [id number] ####[facility] RESPIRATORY [id number] [facility] [place] [address] USASOURCE OF OXYGENNasal cannulaNormalUniversity [facility]o Medical CenterComment on above:Performed By: #### [id number] ####[facility] RESPIRATORY [id number] [place] [address] USAB-TYPE NATRIURETIC PEPTIDEon 97-20-8914Rbxnrqgqvtf peptide B (Bld) [Mass/Vol]869 pg/mLHigh0-100UnSycamore Medical CenterComment on above:Performed By: #### [id number] ####[facility] ([facility])[address] [place], [place] [address]BZBWZ METABOLIC PANELon 28-86-4502Cxunq gap [Moles/Vol]11 mmol/LNormal7-20UnSycamore Medical CenterComment on above:Performed By: #### [id number] ####[facility] ([facility])[address] [place], [place] [address]Egnvglj [Mass/Vol]8.2 mg/dLLow8.6-10.3 [facility] HospitalComment on above:Performed By: #### [id number] ####[facility] ([facility])[address] [place], [place] [address]Sttdngrf [Moles/Vol]106 mmol/MUvkths24-275PzlbbtbkxgSycamore Medical CenterComment on above:Performed By: #### [id number] ####[facility] ([facility])[address] [place], [place] [address]XA3 [Moles/Vol]26 mmol/MHvqcck86-33MzbjnyucijSycamore Medical CenterComment on above:Performed By: #### [id number] ####[facility] ([facility])[address] [place], [place] [address]Ikrrkxwjzb [Mass/Vol]1.17 mg/dLNormal 0.60-1.20UnSycamore Medical CenterComment on above:Performed By: #### [id number] ####[facility] ([facility])[address] [place], [place] [address]JPBFYTFIHF FILTRATION RATE ML/MIN/1.73 SQ M.OECXHWHNN01.2 mL/min/1.73m*2Low>60.0UnSycamore Medical CenterComment on above:Result Comment: [facility]???s estimated glomerular filtration rate (eGFR) will no [...] potential consequences that do not disproportionately affect anyone group of individuals. Performed By: #### [id number] ####[facility] ([facility])[address] [place], [place] [address]Qqywqdj [Mass/Vol]161 mg/vEUwfb60-898LpomfmtlrdSycamore Medical CenterComment on above:Performed By: #### [id number] ####[facility] ([facility])[address] [place], [place] [address]Nceumpsga [Moles/Vol]4.1 mmol/LNormal 3.5-5.1UnSycamore Medical CenterComment on above:Performed By: #### [id number] ####[facility] ([facility])[address] [place], [place] [address]Yxwvmx [Moles/Vol]139 mmol/VWqtbvk902-860ProbpfbjbySycamore Medical CenterComment on above:Performed By: #### [id number] ####[facility] ([facility])[address] [place], [place] [address]Gfdv nitrogen [Mass/Vol]20 mg/dLNormal7-25UnSycamore Medical CenterComment on above:Performed By: #### [id number] ####[facility] ([facility])[address] [place], [place] [address]ISAN NITROGEN/CREATININE (MASS RATIO) IN SER/PLAS17.1NormalUnSycamore Medical CenterComment on above: Performed By: #### [id number] ####[facility] ([facility])[address] [place], [place] [address]Rzrqo gap [Moles/Vol]8 mmol/LNormal7-20UnSycamore Medical CenterComment on above:Performed By: #### [id number] ####[facility] ([facility])[address] [place], [place] [address]Uwxswgl [Mass/Vol]8.8 mg/dLNormal 8.6-10.3UnSycamore Medical CenterComment on above:Performed By: #### [id number] ####[facility] ([facility])[address] [place], [place] [address]Viluxumr [Moles/Vol]105 mmol/OGqetlx51-377TwttonclcrSycamore Medical CenterComment on above:Performed By: #### [id number] ####[facility] ([facility])[address] [place], [place] [address]NL3 [Moles/Vol]29 mmol/CHhusev49-24VsckexmltkSycamore Medical CenterComment on above:Performed By: #### [id number] ####[facility] ([facility])[address] [place], [place] [address]Yocvswulmn [Mass/Vol]1.19 mg/dLNormal 0.60-1.20UnSycamore Medical CenterComment on above:Performed By: #### [id number] ####[facility] ([facility])[address] [place], [place] [address]HWAXMYDNDZ FILTRATION RATE ML/MIN/1.73 SQ M.CNFLJXMRD50.2 mL/min/1.73m*2Low>60.0UnSycamore Medical CenterComment on above:Result Comment: [facility]???s estimated glomerular filtration rate (eGFR) will no [...] potential consequences that do not disproportionately affect anyone group of individuals. Performed By: #### [id number] ####[facility] ([facility])[address] [place], [place] [address]Qrjcrtl [Mass/Vol]97 mg/eKOwrvnd75-838OeychyrrocSycamore Medical CenterComment on above:Performed By: #### [id number] ####[facility] ([facility])[address] [place] [address]Nmhmbgcxm [Moles/Vol]3.7 mmol/LNormal 3.5-5.1UnSycamore Medical CenterComment on above:Performed By: #### [id number] ####[facility] ([facility])[address] [place] [address]Eklhsg [Moles/Vol]138 mmol/FPgpvxn997-678PktsmgjgmaSycamore Medical CenterComment on above:Performed By: #### [id number] ####[facility] ([facility])[address] [place] [address]Cdfe nitrogen [Mass/Vol]22 mg/dLNormal7-25UnSycamore Medical CenterComment on above:Performed By: #### [id number] ####[facility] ([facility])[address] [place], [place] [address]GMWQ NITROGEN/CREATININE (MASS RATIO) IN SER/PLAS18.5NormalUniversBerger HospitalComment on above: Performed By: #### [id number] ####[facility] ([facility])[address] [place] [address]ONDUYIP, IONIZEDon 71-86-8254DBLPAAF IONIZED (MMOL/L) IN BLOOD1.17 mmol/LNormal1.15-1.33UnSycamore Medical CenterComment on above: Performed By: #### CALCIUM, IONIZED ####[facility] RESPIRATORY [id number] [place] [address] USACBC WITH AUTO DIFFERENTIALon 45-35-4136Hnllwbygf (Bld) [#/Vol]0.02 10*3/uLNormal0.00-0.20UnSycamore Medical CenterComment on above:Performed By: #### [id number] ####[facility] ([facility])[address] [place], [place] [address]Dvqzrxqhg/100 WBC (Bld)0.2 %Normal0.0-1.0UnSycamore Medical CenterComment on above:Performed By: #### [id number] ####[facility] ([facility])[address] [place], [place] [address]Ufkisehzojd (Bld) [#/Vol]0.02 10*3/uL Normal0.00-0.50UnSycamore Medical CenterComment on above:Performed By: #### [id number] ####[facility] ([facility])[address] [place] [address] Eosinophils/100 WBC (Bld)0.2 %Normal0.0-6.0UnSycamore Medical Center Comment on above:Performed By: #### [id number] ####[facility] ([facility])[address] [place], [place] [address]Ulsmerilwte distribution width (RBC) [Ratio]16.4 % High11.5-15.0UnSycamore Medical CenterComment on above:Performed By: #### [id number] ####[facility] ([facility])[address] [place] [address] ERYTHROCYTE MEAN CORPUSCULAR HEMOGLOBIN CONCENTRATION (G/DL) BY RENGPIHRS91.3 g/dLLow32.0-35.0UnSycamore Medical CenterComment on above:Performed By: #### [id number] ####[facility] ([facility])[address] [place], [place] [address]Xpcahfwdvc (Bld) [Volume fraction]34.2 %Low36.0-48.0UnSycamore Medical CenterComment on above:Performed By: #### [id number] ####[facility] ([facility])[address] [place], [place] [address]Bogqlmyuci (Bld) [Mass/Vol]10.7 g/dL Low12.0-15.0UnSycamore Medical CenterComment on above:Performed By: #### [id number] ####[facility] ([facility])[address] [place] [address] Immature granulocytes (Bld) [#/Vol]0.09 10*3/uLNormal0.00-0.20UnSycamore Medical CenterComment on above:Performed By: #### [id number] ####[facility] ([facility])[address] [facility] [place] [address]Hjsnlmfw granulocytes/100 WBC (Bld)0.9 %Normal0.0-1.0UnSycamore Medical CenterComment on above: Performed By: #### [id number] ####[facility] ([facility])[address] [place], [place] [address]Esqtjpuhvig (Bld) [#/Vol]1.01 10*3/uLLow1.20-4.00UnSycamore Medical CenterComment on above:Performed By: #### [id number] ####[facility] ([facility])[address] [place], [place] [address]Dontewrdwlv/100 WBC (Bld) 9.6 %Low20.0-45.0UnSycamore Medical CenterComment on above:Performed By: #### [id number] ####[facility] ([facility])[address] [place], [place] [address]VFM (RBC) [Entitic mass]28.0 olSmxdqy13.0-33.0UnSycamore Medical CenterComment on above:Performed By: #### [id number] ####[facility] ([facility])[address] [place], [place] [address]WPQ (RBC) [Entitic vol]89.5 fLNormal 82.0-98.0UnSycamore Medical CenterComment on above:Performed By: #### [id number] ####[facility] ([facility])[address] [place] [address] Monocytes (Bld) [#/Vol]0.18 10*3/uLNormal0.10-1.00UnSycamore Medical CenterComment on above:Performed By: #### [id number] ####[facility] ([facility])[address] [place] [address]Boadbjeov/100 WBC (Bld)1.7 %Low 5.0-12.0UnSycamore Medical CenterComment on above:Performed By: #### [id number] ####[facility] ([facility])[address] [place] [address] Neutrophils (Bld) [#/Vol]9.15 10*3/uLHigh1.60-7.60UnSycamore Medical CenterComment on above:Performed By: #### [id number] ####[facility] ([facility])[address] [place] [address]Fxyhbgsanhn/100 WBC (Bld)87.4 %High 40.0-72.0UnSycamore Medical CenterComment on above:Performed By: #### [id number] ####[facility] ([facility])[address] [place] [address]PGVB (PER 100 WBCS) BY AUTOMATED COUNT0.0 %Tpjdox3NcuavjusyqSycamore Medical Center Comment on above:Performed By: #### [id number] ####[facility] ([facility])[address] [place] [address]LDSOWGBYK (10*3/UL) IN BLOOD AUTOMATED [id number] 10*3/fFEjnhxq338-320VrkxibvimySycamore Medical CenterComment on above: Performed By: #### [id number] ####[facility] ([facility])[address] [place] [address]AJR (Bld) [#/Vol]3.82 10*6/uLNormal3.80-5.00UnSycamore Medical CenterComment on above:Performed By: #### [id number] ####[facility] ([facility])[address] [place] [address]LLY (Bld) [#/Vol]10.47 10*3/uLNormal4.00-10.60UnSycamore Medical CenterComment on above: Performed By: #### [id number] ####[facility] ([facility])[address] [place], [place] [address]Benmalgkn (Bld) [#/Vol]0.04 10*3/uLNormal0.00-0.20UnSycamore Medical CenterComment on above:Performed By: #### [id number] ####[facility] ([facility])[address] [place] [address]Ssrjqqxfr/100 WBC (Bld) 0.5 %Normal0.0-1.0UnSycamore Medical CenterComment on above:Performed By: #### [id number] ####[facility] ([facility])[address] [place], [place] [address]Ocxkdglzgha (Bld) [#/Vol]0.21 10*3/uLNormal0.00-0.50UnSycamore Medical CenterComment on above:Performed By: #### [id number] ####[facility] ([facility])[address] [place] [address]Geiiwfaykfq/100 WBC (Bld)2.8 %Normal 0.0-6.0UnSycamore Medical CenterComment on above:Performed By: #### [id number] ####[facility] ([facility])[address] [place] [address] Erythrocyte distribution width (RBC) [Ratio]16.3 %High11.5-15.0UnSycamore Medical CenterComment on above:Performed By: #### [id number] ####[facility] ([facility])[address] [place], [place] [address]FDREQCNYSDF MEAN CORPUSCULAR HEMOGLOBIN CONCENTRATION (G/DL) BY UJPXYWLEN56.6 g/dLLow32.0-35.0 [facility] HospitalComment on above:Performed By: #### [id number] ####[facility] ([facility])[address] [place], [place] [address]Xxeexfctob (Bld) [Volume fraction]34.5 %Low36.0-48.0UnSycamore Medical CenterComment on above:Performed By: #### [id number] ####[facility] ([facility])[address] [place], [place] [address]Nspjsfeibb (Bld) [Mass/Vol]10.9 g/dLLow12.0-15.0UnSycamore Medical CenterComment on above:Performed By: #### [id number] ####[facility] ([facility])[address] [facility] [place], [place] [address]Jwdxdbfm granulocytes (Bld) [#/Vol]0.04 10*3/uLNormal0.00-0.20UnSycamore Medical Center Comment on above:Performed By: #### [id number] ####[facility] ([facility])[address] [facility] [place], [place] [address]Mahpznky granulocytes/100 WBC (Bld)0.5 %Normal 0.0-1.0UnSycamore Medical CenterComment on above:Performed By: #### [id number] ####[facility] ([facility])[address] [place] [address] Lymphocytes (Bld) [#/Vol]1.83 10*3/uLNormal1.20-4.00UnSycamore Medical CenterComment on above:Performed By: #### [id number] ####[facility] ([facility])[address] [place], [place] [address]Osvbvgtmpun/100 WBC (Bld)24.8 %Normal 20.0-45.0UnSycamore Medical CenterComment on above:Performed By: #### [id number] ####[facility] ([facility])[address] [place] [facility] [address]TBZ (RBC) [Entitic mass]28.0 adBsvbuo13.0-33.0UnSycamore Medical Center Comment on above:Performed By: #### [id number] ####[facility] ([facility])[address] [place], [place] [address]KFR (RBC) [Entitic vol]88.7 iMZcvmxe50.0-98.0 [facility] HospitalComment on above:Performed By: #### [id number] ####[facility] ([facility])[address] [place] [address]Hpabvldpt (Bld) [#/Vol]0.70 10*3/uLNormal0.10-1.00UnSycamore Medical CenterComment on above:Performed By: #### [id number] ####[facility] ([facility])[address] [place] [address]Frrskgvzx/100 WBC (Bld)9.5 %Normal5.0-12.0UnSycamore Medical CenterComment on above:Performed By: #### [id number] ####[facility] ([facility])[address] [place] [address]Jhjkwgfzlqd (Bld) [#/Vol] 4.57 10*3/uLNormal1.60-7.60UnSycamore Medical CenterComment on above: Performed By: #### [id number] ####[facility] ([facility])[address] [place] [address]Aoylbgvgimk/100 WBC (Bld)61.9 %Uvpqsy46.0-72.0UnSycamore Medical CenterComment on above:Performed By: #### [id number] ####[facility] ([facility])[address] [place] [address]KRXT (PER 100 WBCS) BY AUTOMATED COUNT0.0 %Lovybc4QchvjueuekSycamore Medical CenterComment on above: Performed By: #### [id number] ####[facility] ([facility])[address] [place] [address]WDBBUCWFH (10*3/UL) IN BLOOD AUTOMATED [id number] 10*3/uLNormal 150-400UnSycamore Medical CenterComment on above:Performed By: #### [id number] ####[facility] ([facility])[address] [place] [address]UTT (Bld) [#/Vol]3.89 10*6/uLNormal3.80-5.00UnSycamore Medical Center Comment on above:Performed By: #### [id number] ####[facility] ([facility])[address] [place], [place] [address]JAK (Bld) [#/Vol]7.39 10*3/uLNormal4.00-10.60 [facility] HospitalComment on above:Performed By: #### [id number] ####[facility] ([facility])[address], [place] [address]GIEIKQEfh 21-40-3873PPFMWYCPmgszgGqdezwrbxs Genesis HospitalCONSULTNormMercy Health Kings Mills HospitalMAGNESIUMon 68-17-4870Kxsxahytn [Mass/Vol]1.9 mg/dLNormal1.9-2.7UnSycamore Medical CenterComment on above:Performed By: #### [id number] ####[facility] ([facility])[address] [place], [place] [address]Uleynlsiv [Mass/Vol]1.8 mg/dLLow1.9-2.7UnSycamore Medical Center Comment on above:Performed By: #### [id number] ####[facility] ([facility])[address] [place], [place] [address]ZCZQ/MSSA DNA NASALon 87-52-8434TZMW DNANegative NormalNegativeUnSycamore Medical CenterComment on above:Order Comment: Testing methodology is an automated qualitative in vitro diagnostic test for the directdetection and differentiation of Staphylococcus aureus (SA) DNA and methicillin-resistant Staphylococcus aureus (MRSA) DNA from nasal swabs in patients at risk for nasal colonization. The test utilizes real-time polymerase chain reaction (PCR) for the amplification of MRSA/SA DNA and fluorogenic t arget-specific hybridization probes for the detection of the amplified DNA. A negative result does not preclude nasal colonization.Performed By: #### [id number] ####[facility] ([facility])[address] [place], [place] [address]ZXWQ DNANegative NormalNegativeUnSycamore Medical CenterComment on above:Order Comment: Testing methodology is an automated qualitative in vitro diagnostic test for the directdetection and differentiation of Staphylococcus aureus (SA) DNA and methicillin-resistant Staphylococcus aureus (MRSA) DNA from nasal swabs in patients at risk for nasal colonization. The test utilizes real-time polymerase chain reaction (PCR) for the amplification of MRSA/SA DNA and fluorogenic t arget-specific hybridization probes for the detection of the amplified DNA. A negative result does not preclude nasal colonization.Performed By: #### [id number] ####[facility] ([facility])[address] [place] [address]CEKQVCSSht 60-38-1646CIJSRRLVHVLNAF: 41.9 MIN K: 1723 MGY CONTRAST: 80 MLNormalUnSycamore Medical CenterNURSNOTEACT 225Normal [facility] HospitalNURSNOTEOk per Dr Van to give amiodarone patient HR 53NormalUniversBerger HospitalOPNOTEon 74-88-4043NCLGCK NormalUnSycamore Medical CenterPHOSPHORUSon 38-46-5496Dezbjcpme [Mass/Vol]4.5 mg/dLNormal2.5-5.0UnSycamore Medical CenterComment on above:Performed By: #### [id number] ####[facility] ([facility])[address] Wish DaysNIDHIENCOMPASS [facility]ALTH [facility] [place], [place] [address]JYMM ACTIVATED CLOTTING TIME UNSOLICITED RESULTSon 01-28-2024 POC ACTIVATED CLOTTING [id number] fhwVcdc12-250OsntytdwohSycamore Medical Center Comment on above:Performed By: #### [id number] ####[facility] ([facility])[address] MotigaENCOMPASS [facility] [place], [place] [address]HTMH GLUCOSE METER UNSOLICITED RESULTSon 01-28-2024 Glucose [Mass/Vol]112 mg/dPMkia40-169AqxxxgomevSycamore Medical CenterComment on above:Order Comment: Waived Testing in the ED is performed under the ED CLIA certificate #[id number].Result Comment: ejedmou1Sagnetdpm By: #### [id number] ####[facility] ([facility])[address] [place] [address]Cehwdcp [Mass/Vol]105 mg/gRCknghs46-650LwbxdgvzpgSycamore Medical CenterComment on above:Order Comment: Waived Testing in the ED is performed under the ED CLIA certificate #[id number].Result Comment: ezfnmx55Nermkfqfz By: #### [id number] ####[facility] ([facility])[address] [place] [address]APSB PERFUSION PANEL UNSOLICITED RESULTSon 94-11-1998IJ3 [Moles/Vol]29.0 mmol/JXwedro30.0-29.0 [facility] HospitalComment on above:Performed By: #### [id number] ####[facility] ([facility])[address] [place] [address]Suxxlwv [Mass/Vol]139 mg/vDXyuz72-863OdkbwthumeSycamore Medical CenterComment on above:Performed By: #### [id number] ####[facility] ([facility])[address] [place] [address]LDE5 (Bld) [Moles/Vol]27.9 mmol/KFysxir79.0-28.0UnSycamore Medical CenterComment on above:Performed By: #### [id number] ####[facility] ([facility])[address] [place], [place] [address]Euveeufgoq (Bld) [Volume fraction]33 %Clj92-59ZocwppajwcSycamore Medical CenterComment on above: Performed By: #### [id number] ####[facility] ([facility])[address] [place], [place] [address]Hhllopgvth (Bld) [Mass/Vol]11.2 g/dLLow12.0-17.0UnSycamore Medical CenterComment on above:Performed By: #### [id number] ####[facility] ([facility])[address] [place], [place] [address]JGAR BASE EXCESS2.0 mmol/LNormal-2.0-3.0UnSycamore Medical CenterComment on above: Performed By: #### [id number] ####[facility] ([facility])[address] [place], [place] [address]LPMF IONIZED CALCIUM1.22 mmol/LNormal1.12-1.32UnSycamore Medical CenterComment on above:Performed By: #### [id number] ####[facility] ([facility])[address] [place] [address]YIEP JVF491.6 mmHgNormal 41.0-51.0UnSycamore Medical CenterComment on above:Performed By: #### [id number] ####[facility] ([facility])[address] [place] [address]YXSI PH 7.52Sfsqud0.31-7.41UnSycamore Medical CenterComment on above:Performed By: #### [id number] ####[facility] ([facility])[address] [place] [address]EPMW NB6800 sbBhGzjf80-220PngriohfzkSycamore Medical CenterComment on above:Performed By: #### [id number] ####[facility] ([facility])[address] [place] [address]ZNKH SO298 %Xtytpt62-27CauophakmzSycamore Medical Center Comment on above:Performed By: #### [id number] ####[facility] ([facility])[address] [place] [address]Febadtrzq [Moles/Vol]4.0 mmol/LNormal3.5-4.9 [facility] HospitalComment on above:Performed By: #### [id number] ####[facility] ([facility])[address] [place] [address]Bayqev [Moles/Vol]142 mmol/OTjkpyv743.0-146.0UnSycamore Medical CenterComment on above:Performed By: #### [id number] ####[facility] ([facility])[address] [place] [address]PRWVJIAUL, WHOLE BLOODon 34-92-5364Bjnxcowtj [Moles/Vol]3.9 mmol/LNormal3.5-5.1UnSycamore Medical CenterComment on above:Performed By: #### POTASSIUM, WHOLE BLOOD ####[facility] RESPIRATORY [id number] [place] [address] USAPROTIME-INRon 26-79-6758SOK IN PPP BY COAGULATION ASSAY1.27Tfpd3.90-1.10UnSycamore Medical CenterComment on above:Result Comment: ACC RECOMMENDED INR FOR WARFARIN THERAPY CONDITION INRPROPHYLAXIS OF VENOUS THROMBOSIS 2-3(HIGH-RISK SURGERY)TREATMENT OF VENOUS THROMBOSIS 2-3TREATMENT OF PULMONARY EMBOLISM 2-3PREVENTION OF SYSTEMIC EMBOLISM: 2-3 ACUTE MYOCARDIAL INFARCTION TISSUE HEART VALVES VALVULAR HEART DISEASE ATRIAL FIBRILLATION RECURRENT SYSTEMIC EMBOLISMMECHANICAL HEART VALVE 2.5-3.5 FROM: ORAL ANTICOAGULANTS. MECHANISM OF ACTION, CLINICAL EFFECTIVENESS, AND OPTIMAL THERAPE UTIC RANGE. CHEST 1995;108:231S-246S.Performed By: #### [id number] ####[facility] ([facility])[address] [place], [place] [address]IETYQMBCKXN TIME (PT) IN PPP BY COAGULATION ASSAY14.5 TohpdibXstyxv43.3-14.8UnSycamore Medical CenterComment on above:Performed By: #### [id number] ####[facility] ([facility])[address] [place], [place] [address]PFPXOV, WHOLE BLOODon 01-28-2024 SODIUM, WHOLE QJEYP361Pifyvl026-793RmeeydxmcxSycamore Medical CenterComment on above:Performed By: #### SODIUM, WHOLE BLOOD ####[facility] RESPIRATORY [id number] [place] [address] GMV41ua 66-78-570990WfbttvUshxunwaxz of [facility] Medical CenterAPTTon 22-93-2087YNIMFHBBD PARTIAL THROMBOPLASTIN TIME IN PPP BY COAGULATION ASSAY32.6 FhcotkuCddvfr52.0-35.0UnSycamore Medical Center Comment on above:Result Comment: Clinical significance of the APTT is questionable in the presence of heparin.Performed By: #### [id number] ####[facility] ([facility])[address] [place], [place] [address]WPJ WITH AUTO DIFFERENTIALon 87-38-5803Ovgrkezyz (Bld) [#/Vol]0.03 10*3/uLNormal0.00-0.20 [facility] HospitalComment on above:Performed By: #### [id number] ####[facility] ([facility])[address] [place], [place] [address]Vraaemnio/100 WBC (Bld)0.4 %Normal0.0-1.0UnSycamore Medical CenterComment on above: Performed By: #### [id number] ####[facility] ([facility])[address] [place], [place] [address]Sbatgbprxzu (Bld) [#/Vol]0.20 10*3/uLNormal0.00-0.50 [facility] HospitalComment on above:Performed By: #### [id number] ####[facility] ([facility])[address] [place] [address]Agfswxrpzrp/100 WBC (Bld)2.7 %Normal0.0-6.0UnSycamore Medical CenterComment on above: Performed By: #### [id number] ####[facility] ([facility])[address] [place], [place] [address]Iocmusnsnao distribution width (RBC) [Ratio]15.8 %High 11.5-15.0UnSycamore Medical CenterComment on above:Performed By: #### [id number] ####[facility] ([facility])[address] [place] [address] ERYTHROCYTE MEAN CORPUSCULAR HEMOGLOBIN CONCENTRATION (G/DL) BY GXTXXKKJX42.0 g/rRUuvkkx58.0-35.0UnSycamore Medical CenterComment on above:Performed By: #### [id number] ####[facility] ([facility])[address] [place], [place] [address]Ullqhsfjhh (Bld) [Volume fraction]36.3 %Mkexei93.0-48.0UnSycamore Medical CenterComment on above:Performed By: #### [id number] ####[facility] ([facility])[address] [place], [place] [address]Sxooyypiss (Bld) [Mass/Vol]11.6 g/dL Low12.0-15.0UnSycamore Medical CenterComment on above:Performed By: #### [id number] ####[facility] ([facility])[address] [place] [address] Immature granulocytes (Bld) [#/Vol]0.05 10*3/uLNormal0.00-0.20UnSycamore Medical CenterComment on above:Performed By: #### [id number] ####[facility] ([facility])[address] [place], [place] [address]Tswafyzt granulocytes/100 WBC (Bld)0.7 %Normal0.0-1.0UnSycamore Medical CenterComment on above: Performed By: #### [id number] ####[facility] ([facility])[address] [place], [place] [address]Lgzzamxfmmi (Bld) [#/Vol]1.81 10*3/uLNormal1.20-4.00 [facility] HospitalComment on above:Performed By: #### [id number] ####[facility] ([facility])[address] [place], [place] [address]Lhjsiaphfoi/100 WBC (Bld)24.0 %Iqsbac54.0-45.0UnSycamore Medical CenterComment on above:Performed By: #### [id number] ####[facility] ([facility])[address] [place], [place] [address]VIF (RBC) [Entitic mass]28.6 uuEhknqn45.0-33.0UnSycamore Medical CenterComment on above:Performed By: #### [id number] ####[facility] ([facility])[address] [place] [address]QXF (RBC) [Entitic vol] 89.6 kVTrxsah32.0-98.0UnSycamore Medical CenterComment on above: Performed By: #### [id number] ####[facility] ([facility])[address] [place] [address]Miqhbdned (Bld) [#/Vol]0.62 10*3/uLNormal0.10-1.00UnSycamore Medical CenterComment on above:Performed By: #### [id number] ####[facility] ([facility])[address] [place] [address]Hggadinnq/100 WBC (Bld) 8.2 %Normal5.0-12.0[facility] HospitalComment on above:Performed By: #### [id number] ####[facility] ([facility])[address] [place] [address]Gzjxlanrjlc (Bld) [#/Vol]4.82 10*3/uLNormal1.60-7.60UnSycamore Medical CenterComment on above:Performed By: #### [id number] ####[facility] ([facility])[address] [place] [address]Rememwxwvdu/100 WBC (Bld)64.0 %Normal 40.0-72.0UnSycamore Medical CenterComment on above:Performed By: #### [id number] ####[facility] ([facility])[address] [place] [address]NHEW (PER 100 WBCS) BY AUTOMATED COUNT0.0 %Ccgejc7HsyylpxdjuSycamore Medical Center Comment on above:Performed By: #### [id number] ####[facility] ([facility])[address] [place] [address]YRPNXKSIM (10*3/UL) IN BLOOD AUTOMATED IQHDM534 10*3/iRGfuojz630-534ZqbvndkuvdSycamore Medical CenterComment on above: Performed By: #### [id number] ####[facility] ([facility])[address] [place], [place] [address]HZE (Bld) [#/Vol]4.05 10*6/uLNormal3.80-5.00UnSycamore Medical CenterComment on above:Performed By: #### [id number] ####[facility] ([facility])[address] [place], [place] [address]OIB (Bld) [#/Vol]7.53 10*3/uLNormal4.00-10.60UnSycamore Medical CenterComment on above: Performed By: #### [id number] ####[facility] ([facility])[address] [place], [place] [address]UCNAVLHXYTYVH METABOLIC PANELon 97-09-4237Lwoytmo [Mass/Vol] 3.7 g/dLNormal3.5-5.7UnSycamore Medical CenterComment on above: Performed By: #### [id number] ####[facility] ([facility])[address] [place], [place] [address]GDE [Catalytic activity/Vol]81 U/SEplcrt20-298McnxadfsfjGreene Memorial HospitalComment on above:Performed By: #### [id number] ####[facility] ([facility])[address] [place], [place] [address]YNL [Catalytic activity/Vol]9 U/L Normal7-52UnSycamore Medical CenterComment on above:Performed By: #### [id number] ####[facility] ([facility])[address] [place], [place] [address]Ilrbc gap [Moles/Vol]10 mmol/LNormal7-20UnSycamore Medical CenterComment on above:Performed By: #### [id number] ####[facility] ([facility])[address] [place], [place] [address]BTO [Catalytic activity/Vol]13 U/APxgfew45-77LenjwldkrxSycamore Medical CenterComment on above:Performed By: #### [id number] ####[facility] ([facility])[address] [place], [place] [address]Xwscgecws [Mass/Vol]0.8 mg/dL Normal0.3-1.0UnSycamore Medical CenterComment on above:Performed By: #### [id number] ####[facility] ([facility])[address] [place] [address] Calcium [Mass/Vol]9.0 mg/dLNormal8.6-10.3UnSycamore Medical Center Comment on above:Performed By: #### [id number] ####[facility] ([facility])[address] [place], [place] [address]Oaxviibf [Moles/Vol]106 mmol/GYbwisu84-871 [facility] HospitalComment on above:Performed By: #### [id number] ####[facility] ([facility])[address] [place], [place] [address]KB3 [Moles/Vol] 27 mmol/QMggteg65-43ZjcnijcyspSycamore Medical CenterComment on above: Performed By: #### [id number] ####[facility] ([facility])[address] [place], [place] [address]Bepyofqiej [Mass/Vol]1.14 mg/dLNormal0.60-1.20UnSycamore Medical CenterComment on above:Performed By: #### [id number] ####[facility] ([facility])[address] [place], [place] [address]RJWRIIHXPL FILTRATION RATE ML/MIN/1.73 SQ M.IOZSJOYXW24.7 mL/min/1.73m*2Low>60.0UnSycamore Medical Center Comment on above:Result Comment: [facility]???s estimated glomerular filtration rate (eGFR) will no longer include consideration of race in its calculation. The National Kidney Foundation???s eGFR Task Force developed new recommendations for the estimation of the glomerular filtration ra te in the [place] They recommend immediate implementation of the new equation refit without the race variable in all laboratories because the calculation does not include race. In addition to not including race in the calculation and reporting, it included diversity in its development, and has acceptable performance characteristics and potential consequences that do not disproportionately affect anyone group of individuals.Performed By: #### [id number] ####[facility] ([facility])[address] [place] [address]Ievjpja [Mass/Vol]88 mg/rKEigljf85-864HwikqkheycSycamore Medical CenterComment on above:Performed By: #### [id number] ####[facility] ([facility])[address] [place] [address]Omlmdbzbm [Moles/Vol]3.8 mmol/LNormal3.5-5.1UnSycamore Medical CenterComment on above:Performed By: #### [id number] ####[facility] ([facility])[address] [place], [place] [address]Fdrqefb [Mass/Vol]5.9 g/dLLow 6.0-8.3UnSycamore Medical CenterComment on above:Performed By: #### [id number] ####[facility] ([facility])[address] [place] [address]Xeuxdb [Moles/Vol]139 mmol/QWessoo083-362ItotjtmiioSycamore Medical CenterComment on above:Performed By: #### [id number] ####[facility] ([facility])[address] [place], [place] [address]Pnqy nitrogen [Mass/Vol]20 mg/dLNormal7-25UnSycamore Medical CenterComment on above:Performed By: #### [id number] ####[facility] ([facility])[address] [place] [address]LBEU NITROGEN/CREATININE (MASS RATIO) IN SER/PLAS17.5NormalUniversBerger HospitalComment on above: Performed By: #### [id number] ####[facility] ([facility])[address] [place], [place] [address]UPFFADNhs 55-96-7712RSBBQFARqmgzbXzkxxcdwiy of [facility] Medical CenterCT ABDOMEN PELVIS W IV CONTRASTon 29-52-7652CBU ABDOMEN PELVIS W IV CONTRASTNormal University Genesis HospitalCTA CHEST W IV CONTRASTon 85-16-4720RUW CHEST W IV CONTRASTNormalUniversity Connally Memorial Medical CenterPROVon 91-35-7933ZURZYX NormalUnSycamore Medical CenterHPon 69-05-0013YDKmmjcsTlyyuhdydo of [facility] Medical CenterLACTIC ACID WITH 4 HOUR REFLEXon 55-25-9485YHOHZLF (MMOL/L) IN SER/PLAS0.7 mmol/LNormal0.5-2.2UnSycamore Medical CenterComment on above:Performed By: #### [id number] ####[facility] ([facility])[address] [place], [place] [address]UKNZGEwu 50-80-0393UQDKQU (U/L) IN SER/PLAS18 U/LWnsxns73-61 [facility] HospitalComment on above:Performed By: #### [id number] ####[facility] ([facility])[address] [place], [place] [address]PQMGYFGTIcq 69-49-0225Vqcmkoolv [Mass/Vol]1.9 mg/dLNormal1.9-2.7UnSycamore Medical CenterComment on above:Performed By: #### [id number] ####[facility] ([facility])[address] [place], [place] [address]ZYVK GLUCOSE METER UNSOLICITED RESULTS on 16-36-4404Assfqtg [Mass/Vol]158 mg/rPLakt71-959EkxhnzszhoSycamore Medical CenterComment on above:Order Comment: Waived Testing in the ED is performed under the ED CLIA certificate #[id number].Result Comment: kqvlaul39Dztufqshw By: #### [id number] ####[facility] ([facility])[address] [place] [address] Glucose [Mass/Vol]86 mg/cCApteam97-830SvfzgyldkaSycamore Medical CenterComment on above:Order Comment: Waived Testing in the ED is performed under the ED CLIA certificate #[id number].Result Comment: bajkbfx86Igjpitlfq By: #### [id number] ####[facility] ([facility])[address] [place], [place] [address]Ahneyfr [Mass/Vol]99 mg/lWBqoznn09-405KemqsyospkSycamore Medical CenterComment on above:Order Comment: Waived Testing in the ED is performed under the ED CLIA certificate #[id number].Result Comment: [id number] By: #### [id number] ####[facility] ([facility])[address] [facility] [place] [address]LISWSOZ-MWIjz 80-17-2580FXB IN PPP BY COAGULATION ASSAY1.41Jysr5.90-1.10UnSycamore Medical CenterComment on above:Result Comment: [facility] RECOMMENDED INR FOR WARFARIN THERAPY CONDITION INRPROPHYLAXIS OF VENOUS THROMBOSIS 2-3(HIGH-RISK SURGERY)TREATMENT OF VENOUS THROMBOSIS 2-3TREATMENT OF PULMONARY EMBOLISM 2-3PREVENTION OF SYSTEMIC EMBOLISM: 2-3 ACUTE MYOCARDIAL INFARCTION TISSUE HEART VALVES VALVULAR HEART DISEASE ATRIAL FIBRILLATION RECURRENT SYSTEMIC EMBOLISMMECHANICAL HEART VALVE 2.5-3.5 FROM: ORAL ANTICOAGULANTS. MECHANISM OF ACTION, CLINICAL EFFECTIVENESS, AND OPTIMAL THERAPE UTIC RANGE. CHEST 1995;108:231S-246S.Performed By: #### [id number] ####[facility] (BEIMGuest)[address] [facility] [place] [address]ZAXLHIZZMHF TIME (PT) IN PPP BY COAGULATION ASSAY14.8 DjtppnxFmbrfl99.3-14.8UnSycamore Medical CenterComment on above:Performed By: #### [id number] ####[facility] ([facility])[address] [facility] [place] [address]QOLGAKFZ Ion 22-85-6257Kkrehnrw I.cardiac [Mass/Vol]0.02 ng/mLNormal0.00-0.04UnSycamore Medical Center Comment on above:Performed By: #### [id number] ####[facility] ([facility])[address] [place], [place] [address]WPWL AND SCREENon 80-43-6665HR SCREENNegativeNormal Greene Memorial HospitalComment on above:Performed By: #### [id number] ####[facility]OD [facility],ABO group Nom (Bld)ONormalUnSycamore Medical CenterComment on above:Performed By: #### [id number] ####[facility]OD [facility],RH TYPE IN BLOODPositiveNormalUniAshtabula General HospitalComment on above:Performed By: #### [id number] ####[facility] BLOOD BANK,36on 32-33-412284VgpqyjUenegltahg of [facility] Gygyka13bi 91-10-920535WbiozyXtfiyhnnmm of [facility] Telephoneon 73-36-7511HkyogburjQnxnuvCzrhgpmxcp of [facility] Geduvy70yj 35-07-119274XvamkgHkwgyfxpso of [facility] [facility] Fybywk41XgapdeMftlmkfcgyAshtabula General HospitalCBCon 02-60-2373Kgekqjyivum distribution width (RBC) [Ratio]15.8 %High11.5-15.0UnSycamore Medical CenterComment on above: Performed By: #### [id number] ####[facility] ([facility])[address] [place], [place] [address]VBKVGKOKTRF MEAN CORPUSCULAR HEMOGLOBIN CONCENTRATION (G/DL) BY JGCUMAAYC63.6 g/dLLow32.0-35.0UnSycamore Medical CenterComment on above:Performed By: #### [id number] ####[facility] ([facility])[address] [place], [place] [address]Guzzfxtsfk (Bld) [Volume fraction]29.4 %Low36.0-48.0 [facility] HospitalComment on above:Performed By: #### [id number] ####[facility] ([facility])[address] [place] [address]Ucyniltdrv (Bld) [Mass/Vol]9.3 g/dLLow12.0-15.0UnSycamore Medical CenterComment on above:Performed By: #### [id number] ####[facility] ([facility])[address] [place] [address]JTJ (RBC) [Entitic mass]27.8 utWmmfar88.0-33.0UnSycamore Medical CenterComment on above:Performed By: #### [id number] ####[facility] ([facility])[address] [place] [address]QQM (RBC) [Entitic vol] 88.0 bOVredbh22.0-98.0UnSycamore Medical CenterComment on above: Performed By: #### [id number] ####[facility] ([facility])[address] [place] [address]XICKPXMMM (10*3/UL) IN BLOOD AUTOMATED [id number] 10*3/uLNormal 150-400UnSycamore Medical CenterComment on above:Performed By: #### [id number] ####[facility] ([facility])[address] [place] [address]PJX (Bld) [#/Vol]3.34 10*6/uLLow3.80-5.00UnSycamore Medical CenterComment on above:Performed By: #### [id number] ####[facility] ([facility])[address] [place] [address]ULK (Bld) [#/Vol]5.95 10*3/uLNormal4.00-10.60UnSycamore Medical CenterComment on above:Performed By: #### [id number] ####[facility] ([facility])[address] [place] [address]OOrd 95-62-3149XMDmwpuq [facility] Memorial HospitalPOCT GLUCOSE METER UNSOLICITED RESULTSon 19-28-9902Cixeegs [Mass/Vol]105 mg/iHCguibl97-090WaxsxgsjtlSycamore Medical CenterComment on above:Order Comment: Waived Testing in the ED is performed under the ED CLIA certificate #[id number].Result Comment: vnnqbun80Cyyirualu By: #### [id number] ####[facility] ([facility])[address] [place] [address] Glucose [Mass/Vol]103 mg/eYZtgwof92-446SsdhkjszadSycamore Medical Center Comment on above:Order Comment: Waived Testing in the ED is performed under the ED CLIA certificate #[id number].Result Comment: vprquni61Wecccfarn By: #### [id number] ####[facility] ([facility])[address], [place] [address]ul 09-52-838809QehbpdPtzyypmtdd of [facility] [facility] Llbyeo59UgvzlbKjujdacnbc Genesis HospitalANESon 20-10-6932ZWIARguqdpTfkauzsxnp [facility] 17-10-750[address]BANGQNPRG PARTIAL THROMBOPLASTIN TIME IN PPP BY COAGULATION XDCAX622.8 SecondsCritically high25.0-35.0[facility] HospitalComment on above:Order Comment: Check aPTT every 6 hours while on heparin infusion, or per protocol.Result Comment: Clinical significance of the APTT is questionable in the presence of heparin.Performed By: #### [id number] ####[facility] ([facility])[address] [place], [place] [address]FRQCPFKME PARTIAL THROMBOPLASTIN TIME IN PPP BY COAGULATION ASSAY38.4 QiiivaeRcid44.0-35.0 [facility] HospitalComment on above:Result Comment: Clinical significance of the APTT is questionable in the presence of heparin.Performed By: #### [id number] ####[facility] ([facility])[address] [place] [address] B-TYPE NATRIURETIC PEPTIDEon 41-61-0770Zxftlvtgptl peptide B (Bld) [Mass/Vol]555 pg/mLHigh0-100UnSycamore Medical CenterComment on above:Performed By: #### [id number] ####[facility] ([facility])[address] [place] [address] BASIC METABOLIC PANELon 16-81-9587Fdjju gap [Moles/Vol]8 mmol/LNormal7-20 [facility] HospitalComment on above:Performed By: #### [id number] ####[facility] ([facility])[address] [place] [address]Mitxpuk [Mass/Vol]9.0 mg/dLNormal8.6-10.3UnSycamore Medical CenterComment on above:Performed By: #### [id number] ####[facility] ([facility])[address] [place], [place] [address]Vkejmdhx [Moles/Vol]107 mmol/NDxlpkv41-492HevydwzlchSycamore Medical CenterComment on above:Performed By: #### [id number] ####[facility] ([facility])[address] [place], [place] [address]XQ2 [Moles/Vol]29 mmol/LNormal 21-31UnSycamore Medical CenterComment on above:Performed By: #### [id number] ####[facility] ([facility])[address] [place], [place] [address]Dnqybztypa [Mass/Vol]1.09 mg/dLNormal0.60-1.20UnSycamore Medical CenterComment on above:Performed By: #### [id number] ####[facility] ([facility])[address] [place], [place] [address]AJDKNYRNGH FILTRATION RATE ML/MIN/1.73 SQ M.MNVQBJAZB69.4 mL/min/1.73m*2Low>60.0UnSycamore Medical CenterComment on above:Result Comment: [facility]???s estimated glomerular filtration rate (eGFR) will no [...] potential consequences that do not disproportionately affect anyone group of individuals.Performed By: #### [id number] ####[facility] ([facility])[address] [place] [address]Ufaobaf [Mass/Vol]91 mg/xLFwnwog85-005UbtdfxqkuySycamore Medical CenterComment on above:Performed By: #### [id number] ####[facility] ([facility])[address] [place] [address]Ujdjouedj [Moles/Vol]4.0 mmol/LNormal3.5-5.1UnSycamore Medical CenterComment on above:Performed By: #### [id number] ####[facility] ([facility])[address] [place] [address] Sodium [Moles/Vol]140 mmol/QDqjtrf516-786EkltjfpsiqSycamore Medical Center Comment on above:Performed By: #### [id number] ####[facility] ([facility])[address] [place] [address]Gjnh nitrogen [Mass/Vol]14 mg/dLNormal7-25 [facility] HospitalComment on above:Performed By: #### [id number] ####[facility] ([facility])[address] [place] [address]EBJX NITROGEN/CREATININE (MASS RATIO) IN SER/PLAS12.8NormalUniversBerger HospitalComment on above:Performed By: #### [id number] ####[facility] ([facility])[address] [place] [address]PGT WITH AUTO DIFFERENTIALon 79-03-9519Jwliqnwxv (Bld) [#/Vol]0.04 10*3/uLNormal0.00-0.20UnSycamore Medical CenterComment on above:Performed By: #### [id number] ####[facility] ([facility])[address] [place] [address]Bztbfxjit/100 WBC (Bld)0.6 %Normal 0.0-1.0UnSycamore Medical CenterComment on above:Performed By: #### [id number] ####[facility] ([facility])[address] [place] [address] Eosinophils (Bld) [#/Vol]0.16 10*3/uLNormal0.00-0.50UnSycamore Medical CenterComment on above:Performed By: #### [id number] ####[facility] ([facility])[address] [place], [place] [address]Dbnuzpsddsy/100 WBC (Bld)2.5 %Normal 0.0-6.0UnSycamore Medical CenterComment on above:Performed By: #### [id number] ####[facility] ([facility])[address] [place] [address] Erythrocyte distribution width (RBC) [Ratio]15.7 %High11.5-15.0UnSycamore Medical CenterComment on above:Performed By: #### [id number] ####[facility] ([facility])[address] [place], [place] [address]KYJYLYOBUVC MEAN CORPUSCULAR HEMOGLOBIN CONCENTRATION (G/DL) BY NGDLANYGD20.9 g/dLLow32.0-35.0 [facility] HospitalComment on above:Performed By: #### [id number] ####[facility] ([facility])[address] [place], [place] [address]Uurstywmor (Bld) [Volume fraction]31.1 %Low36.0-48.0UnSycamore Medical CenterComment on above:Performed By: #### [id number] ####[facility] ([facility])[address] [place], [place] [address]Zzcpceufsx (Bld) [Mass/Vol]9.6 g/dLLow12.0-15.0UnSycamore Medical CenterComment on above:Performed By: #### [id number] ####[facility] ([facility])[address] [place], [place] [address]Yogoabnz granulocytes (Bld) [#/Vol]0.04 10*3/uLNormal0.00-0.20UnSycamore Medical Center Comment on above:Performed By: #### [id number] ####[facility] ([facility])[address] [place], [place] [address]Flcknzpa granulocytes/100 WBC (Bld)0.6 %Normal 0.0-1.0UnSycamore Medical CenterComment on above:Performed By: #### [id number] ####[facility] ([facility])[address] [place] [address] Lymphocytes (Bld) [#/Vol]1.75 10*3/uLNormal1.20-4.00UnSycamore Medical CenterComment on above:Performed By: #### [id number] ####[facility] ([facility])[address] [place], [place] [address]Zjveywohwqs/100 WBC (Bld)26.8 %Normal 20.0-45.0UnSycamore Medical CenterComment on above:Performed By: #### [id number] ####[facility] ([facility])[address] [place], [place] [address]IMX (RBC) [Entitic mass]28.0 jzEixvws67.0-33.0UnSycamore Medical Center Comment on above:Performed By: #### [id number] ####[facility] ([facility])[address] [place], [place] [address]JZS (RBC) [Entitic vol]90.7 hMBdtgow91.0-98.0 [facility] HospitalComment on above:Performed By: #### [id number] ####[facility] ([facility])[address] [place], [place] [address]Ctmquryqo (Bld) [#/Vol]0.49 10*3/uLNormal0.10-1.00UnSycamore Medical CenterComment on above:Performed By: #### [id number] ####[facility] ([facility])[address] [place], [place] [address]Gharrmukh/100 WBC (Bld)7.5 %Normal5.0-12.0[facility]arcenas Medical CenterComment on above:Performed By: #### [id number] ####[facility] ([facility])[address] [place] [address]Elmwoqibaqu (Bld) [#/Vol] 4.05 10*3/uLNormal1.60-7.60UnSycamore Medical CenterComment on above: Performed By: #### [id number] ####[facility] ([facility])[address] [place] [address]Kgxpxsacggo/100 WBC (Bld)62.0 %Fzmtpe75.0-72.0UnSycamore Medical CenterComment on above:Performed By: #### [id number] ####[facility] ([facility])[address] [place] [address]BECN (PER 100 WBCS) BY AUTOMATED COUNT0.0 %Pnxhjj5DhhnjllhgbSycamore Medical CenterComment on above: Performed By: #### [id number] ####[facility] ([facility])[address] [place] [address]FAMMRFHAN (10*3/UL) IN BLOOD AUTOMATED QXLZP267 10*3/uLNormal 150-400UnSycamore Medical CenterComment on above:Performed By: #### [id number] ####[facility] ([facility])[address] [place] [address]XZG (Bld) [#/Vol]3.43 10*6/uLLow3.80-5.00UnSycamore Medical CenterComment on above:Performed By: #### [id number] ####[facility] ([facility])[address] [place] [address]XDS (Bld) [#/Vol]6.53 10*3/uLNormal4.00-10.60UnSycamore Medical CenterComment on above:Performed By: #### [id number] ####[facility] ([facility])[address] [place] [address]NKGUXHGTHLPXV METABOLIC PANELon 22-15-6004Bkgutjp [Mass/Vol]3.2 g/dLLow3.5-5.7UnSycamore Medical CenterComment on above:Performed By: #### [id number] ####[facility] ([facility])[address] [place], [place] [address]OCF [Catalytic activity/Vol]78 U/L Tormdu07-036HmwvqnygapSycamore Medical CenterComment on above:Performed By: #### [id number] ####[facility] ([facility])[address] [place], [place] [address]OVX [Catalytic activity/Vol]4 U/LLow7-52UnSycamore Medical CenterComment on above:Performed By: #### [id number] ####[facility] ([facility])[address] [place], [place] [address]Zlyew gap [Moles/Vol]10 mmol/LNormal7-20UnSycamore Medical CenterComment on above:Performed By: #### [id number] ####[facility] ([facility])[address] [place], [place] [address]SVN [Catalytic activity/Vol]9 U/LLow 13-39UnSycamore Medical CenterComment on above:Performed By: #### [id number] ####[facility] ([facility])[address] [place], [place] [address]Topyhfsza [Mass/Vol]0.6 mg/dLNormal0.3-1.0UnSycamore Medical CenterComment on above:Performed By: #### [id number] ####[facility] ([facility])[address] [place], [place] [address]Rvsbmdr [Mass/Vol]8.9 mg/dLNormal8.6-10.3UnSycamore Medical CenterComment on above:Performed By: #### [id number] ####[facility] ([facility])[address] [place], [place] [address]Jbuzchje [Moles/Vol]107 mmol/LNormal 98-107UnSycamore Medical CenterComment on above:Performed By: #### [id number] ####[facility] ([facility])[address] [place], [place] [address]ZL5 [Moles/Vol]27 mmol/JHctcog62-54TvhxqazxfvSycamore Medical CenterComment on above:Performed By: #### [id number] ####[facility] ([facility])[address] [place] [address]Gbuoxqdxgv [Mass/Vol]1.15 mg/dLNormal0.60-1.20UnSycamore Medical CenterComment on above:Performed By: #### [id number] ####[facility] ([facility])[address] [place], [place] [address]JEEFQDQYUI FILTRATION RATE ML/MIN/1.73 SQ M.FMQHRAEBA72.2 mL/min/1.73m*2Low>60.0UnSycamore Medical CenterComment on above:Result Comment: [facility]???s estimated glomerular filtration rate (eGFR) will no [...] potential consequences that do not disproportionately affect anyone group of individuals.Performed By: #### [id number] ####[facility] ([facility])[address] [place] [address]Gotdshr [Mass/Vol]90 mg/iWKibmok24-000WqaphcjdpbSycamore Medical CenterComment on above:Performed By: #### [id number] ####[facility] ([facility])[address] [place], [place] [address]Nttzziraq [Moles/Vol]4.1 mmol/LNormal3.5-5.1UnSycamore Medical CenterComment on above:Performed By: #### [id number] ####[facility] ([facility])[address] [place], [place] [address]Pumqiih [Mass/Vol]5.7 g/dLLow 6.0-8.3UnSycamore Medical CenterComment on above:Performed By: #### [id number] ####[facility] ([facility])[address] [place] [address]Qefpeh [Moles/Vol]140 mmol/MIrchca437-522YrafzpvmjeSycamore Medical CenterComment on above:Performed By: #### [id number] ####[facility] ([facility])[address] [place] [address]Iach nitrogen [Mass/Vol]15 mg/dLNormal7-25UnSycamore Medical CenterComment on above:Performed By: #### [id number] ####[facility] ([facility])[address] [place] [address]QBWT NITROGEN/CREATININE (MASS RATIO) IN SER/PLAS13.0NormalUniversBerger HospitalComment on above: Performed By: #### [id number] ####[facility] ([facility])[address] [place] [address]ARFZTZEim 38-77-6717QCTHVHDDbgnprPcjorsqsvn of [facility] HEMOGLOBIN A1Con 95-46-6214Yobgknq [Mass/Vol]105 mg/dLNormalUniversBerger HospitalComment on above:Performed By: #### [id number] ####[facility] ([facility])[address] [place] [address]KhO2o (Bld) [Mass fraction]5.3 %Normal 4.0-6.0UnSycamore Medical CenterComment on above:Performed By: #### [id number] ####[facility] ([facility])[address] [place] [address]PImv 20-70-6773JLLjxvwfBsslasaxel of [facility] CenterHPNormalUniversBerger HospitalLIPID PANELon 80-63-3959NBWF/HDL5.1 mg/dLNormalUniversBerger HospitalComment on above:Performed By: #### [id number] ####[facility] ([facility])[address] [place] [address]Hioqypnbyef [Mass/Vol]164 mg/pRIvrndp526-752YupafafgqzSycamore Medical CenterComment on above:Performed By: #### [id number] ####[facility] ([facility])[address] [address] Magnesium [Mass/Vol]101 mg/yAErtzgz49-641HizrigjhkxSycamore Medical Center Comment on above:Result Comment: TRIGLYCERIDE REFERENCE RANGE:20 YEARS AND OLDER CARDIOVASCULAR RISKLESS THAN 150 mg/dL LOW EQDF942 TO 199 mg/dL BORDERLINE DIDG668 mg/dL AND GREATER HIGH RISKPerformed By: #### [id number] ####[facility] ([facility])[address] [facility] [place] [address]Nntrthbwu [Mass/Vol]112 mg/dL Normal0-160UnSycamore Medical CenterComment on above:Performed By: #### [id number] ####[facility] ([facility])[address] [place] [address] Magnesium [Mass/Vol]32 mg/hBVyjcdr79-01NcumaiwgspSycamore Medical Center Comment on above:Performed By: #### [id number] ####[facility] ([facility])[address] [facility], [place] [address]TNF HDL CHOL. (LDL+VLDL)132NormalUniAshtabula General HospitalComment on above:Performed By: #### [id number] ####[facility] ([facility])[address] [facility] [place], [place] [address]XKYFT VLDL-C20 mg/dLNormal0-40 [facility] HospitalComment on above:Performed By: #### [id number] ####[facility] ([facility])[address] [place] [address]RDAZYTXUBcb 56-34-7601Vcylbrpxi [Mass/Vol]1.9 mg/dLNormal1.9-2.7UnSycamore Medical CenterComment on above:Performed By: #### [id number] ####[facility] ([facility])[address] [facility], [place] [address]IEPD GLUCOSE METER UNSOLICITED RESULTS on 49-57-9910Hdmzpwv [Mass/Vol]105 mg/aKFyoeie62-589VuxkxcxtekSycamore Medical CenterComment on above:Order Comment: Waived Testing in the ED is performed under the ED CLIA certificate #[id number].Result Comment: yiirxht4Ybbcxzoec By: #### [id number] ####[facility] ([facility])[address] [place] [address] Glucose [Mass/Vol]118 mg/pCBrpf84-784SswacqzetzSycamore Medical CenterComment on above:Order Comment: Waived Testing in the ED is performed under the ED CLIA certificate #[id number].Result Comment: awaisanPerformed By: #### [id number] ####[facility] ([facility])[address] [place], [place] [address]Ffbwspf [Mass/Vol]100 mg/mSWtfnbg71-842TkrfkacxsfSycamore Medical CenterComment on above:Order Comment: Waived Testing in the ED is performed under the ED CLIA certificate #[id number].Result Comment: vvahckg6Riorqject By: #### [id number] ####[facility] ([facility])[address] [place], [place] [address]Vhjyxau [Mass/Vol]107 mg/wUPkur16-806KsamoqqeimSycamore Medical CenterComment on above:Order Comment: Waived Testing in the ED is performed under the ED CLIA certificate #[id number].Result Comment: akelkli81Tuuofijcr By: #### [id number] ####[facility] ([facility])[address] [place], [place] [address]Jteaxmx [Mass/Vol]94 mg/lRVopiiz74-748KiwywqbuqmSycamore Medical CenterComment on above:Order Comment: Waived Testing in the ED is performed under the ED CLIA certificate #[id number].Result Comment: gzjreln79Zlbkcocxw By: #### [id number] ####[facility] ([facility])[address] [place], [place] [address]KBIDQKG-ZKTua 88-33-2864BMC IN PPP BY COAGULATION ASSAY1.86Ofhs0.90-1.10UnSycamore Medical CenterComment on above:Result Comment: [facility] RECOMMENDED INR FOR WARFARIN THERAPY CONDITION INRPROPHYLAXIS OF VENOUS THROMBOSIS 2-3(HIGH-RISK SURGERY)TREATMENT OF VENOUS THROMBOSIS 2-3TREATMENT OF PULMONARY EMBOLISM 2-3PREVENTION OF SYSTEMIC EMBOLISM: 2-3 ACUTE MYOCARDIAL INFARCTION TISSUE HEART VALVES VALVULAR HEART DISEASE ATRIAL FIBRILLATION RECURRENT SYSTEMIC EMBOLISMMECHANICAL HEART VALVE 2.5-3.5 FROM: ORAL ANTICOAGULANTS. MECHANISM OF ACTION, CLINICAL EFFECTIVENESS, AND OPTIMAL THERAPE UTIC RANGE. CHEST 1995;108:231S-246S.Performed By: #### [id number] ####[facility])[address] [place], [place] [address]GDSSDAYOAMB TIME (PT) IN PPP BY COAGULATION ASSAY14.6 UutyyygIlswwj44.3-14.8UnSycamore Medical CenterComment on above:Performed By: #### [id number] ####[facility])[address] [place], [place] [address]VLDBERSN Ion 13-97-1473Rykhmgib I.cardiac [Mass/Vol]0.01 ng/mLNormal0.00-0.04UnSycamore Medical Center Comment on above:Performed By: #### [id number] ####[facility])[address] [place], [place] [address]Gxlufnel I.cardiac [Mass/Vol]0.02 ng/mLNormal 0.00-0.04UnSycamore Medical CenterComment on above:Performed By: #### [id number] ####[facility])[address], [place] [address]Camwxgmf I.cardiac [Mass/Vol]0.01 ng/mLNormal0.00-0.04UnSycamore Medical Center Comment on above:Performed By: #### [id number] ####[facility] ([facility])[address] [place], [place] [address]Yvtcjlee I.cardiac [Mass/Vol]0.01 ng/mLNormal 0.00-0.04UnSycamore Medical CenterComment on above:Performed By: #### [id number] ####[facility] ([facility])[address] [place], [place] [address]Mvuyii Onlyon [id number] [id number] Shayy Maynard 1945 F Date Provider Department Center 12/02/2023 [facility] No family history on fileNormalUniversity Genesis HospitalAlanine aminotransferase [Enzymatic activity/volume] in Serum or PlasmaOrdered By: Anju Lees on [id number] [Catalytic activity/Vol]11 U/L7-52[facility] HospitalAlbumin [Mass/volume] in Serum or Plasma by Bromocresol green (BCG) dye binding methoOrdered By: Anju Lees on 30-02-7785Wssudat BCG dye [Mass/Vol]3.7 g/dL3.5-5.7FDelaware County HospitalAlkaline phosphatase [Enzymatic activity/volume] in Serum or PlasmaOrdered By: Anju Lees on 17-18-3020YET [Catalytic activity/Vol]110 U/C59-017YvxifesnlHarrison Community HospitalAspartate aminotransferase [Enzymatic activity/volume] in Serum or PlasmaOrdered By: Anju Lees on 69-04-3322HJW [Catalytic activity/Vol]16 U/L 13-39[facility] HospitalBasophils Auto (Bld) [#/Vol]Ordered By: Anju Lees on 35-31-5665Uymycskml (Bld) [#/Vol]0.1 10*3/uL0.0-0.2FDelaware County HospitalBasophils/100 WBC Auto (Bld)Ordered By: Anju Lees on 85-10-9868Qkdktsxen/100 WBC (Bld)0.6 %.[facility] Bilirubin.total [Mass/volume] in Serum or PlasmaOrdered By: Anju Lees 52-62-8798Pevfovcjd [Mass/Vol]0.5 mg/dL0.3-1.0[facility] Calcium [Mass/volume] in Serum or PlasmaOrdered By: Anju Lees on 04-17-2023 Calcium [Mass/Vol]9.5 mg/dL8.6-10.3FDelaware County HospitalCarbon dioxide, total [Moles/volume] in Serum or PlasmaOrdered By: Anju Lees 02-35-8493BZ3 [Moles/Vol]31.9 mmol/L21.0-31.0[facility] Chloride [Moles/volume] in Serum or PlasmaOrdered By: Anju Lees 04-59-0571Jqvqhszw [Moles/Vol]102 mmol/F16-636EipwftqjdHarrison Community Hospital Creatinine [Mass/volume] in Serum or PlasmaOrdered By: Anju Lees 20-57-7889Ftrtdvvnxl [Mass/Vol]1.01 mg/dL0.60-1.20[facility] HospitalEosinophils Auto (Bld) [#/Vol]Ordered By: Anju Lees 04-17-2023 Eosinophils (Bld) [#/Vol]0.3 10*3/uL0.0-0.45[facility] Eosinophils/100 WBC Auto (Bld)Ordered By: Anju Lees on 04-17-2023 Eosinophils/100 WBC (Bld)3.1 %.[facility] HospitalErythrocyte distribution width Auto (RBC) [Ratio]Ordered By: Anju Lees 04-17-2023 Erythrocyte distribution width (RBC) [Ratio]16.3 %11.9-15.3FDelaware County HospitalGlobulin Calc (S) [Mass/Vol]Ordered By: Anju Lees 50-53-6364Zuhoqohs (S) [Mass/Vol]2.0 g/dLH[facility] Hospital Glucose [Mass/volume] in Serum or PlasmaOrdered By: Anju Lees 04-17-2023 Glucose [Mass/Vol]89 mg/vZ02-899JspeyxeefHarrison Community HospitalHematocrit Auto (Bld) [Volume fraction]Ordered By: Anju Lees on 87-38-4295Dhhiyzzomf (Bld) [Volume fraction]33.3 %34.0-46.4FDelaware County HospitalHemoglobin [Mass/volume] in BloodOrdered By: Anju Lees on 57-96-3043Wgsbsaddhg (Bld) [Mass/Vol]11.1 g/dL11.8-15.4FDelaware County HospitalLeukocytes [#/volume] corrected for nucleated erythrocytes in Blood by Automated coun Ordered By: Anju Lees on 98-39-0934VBR corrected for nucl RBC Auto (Bld) [#/Vol]9.1 10*3/uL3.8-11.6FDelaware County HospitalLymphocytes Auto (Bld) [#/Vol]Ordered By: Anju Lees on 77-76-4058Hecenwpzkbp (Bld) [#/Vol] 2.1 10*3/uL1.00-4.8[facility] HospitalLymphocytes/100 WBC Auto (Bld)Ordered By: Anju Lees on 13-38-1315Lbplptkqjxg/100 WBC (Bld)22.7 %. [facility] Auto (RBC) [Entitic mass]Ordered By: Anju Lees on 01-82-3134LBO (RBC) [Entitic mass]27.9 pg24.7-34.3FDelaware County HospitalMCHC Auto (RBC) [Mass/Vol]Ordered By: Anju Lees on 79-34-7386HOPA (RBC) [Mass/Vol]33.4 g/dL32.0-35.0[facility] HospitalMCV Auto (RBC) [Entitic vol]Ordered By: Anju Lees on 44-51-6977SII (RBC) [Entitic vol]83.3 gO93-596EeftuhdgzHarrison Community HospitalMonocytes Auto (Bld) [#/Vol]Ordered By: Anju Lees on 65-02-4967Noaizqxfs (Bld) [#/Vol]0.6 10*3/uL0.0-0.8[facility] HospitalMonocytes/100 WBC Auto (Bld) Ordered By: Anju Lees on 60-59-7446Umvylhpen/100 WBC (Bld)6.5 %.[facility] HospitalNeutrophils Auto (Bld) [#/Vol]Ordered By: Anju Lees on 19-01-0109Pbcnhxfduov (Bld) [#/Vol]6.1 10*3/uL1.8-7.7FDelaware County HospitalNeutrophils/100 WBC Auto (Bld)Ordered By: Anju Lees on 72-40-7065Eolthngegeh/100 WBC (Bld)67.1 %.[facility] HospitalNo Panel InformationOrdered By: Anju Lees on 60-80-6987Cqfprcayx GFR (CKD-EPI) 56.627 mL/MinHarrison Community HospitalPharmacy Creatinine Clearance (ChemN/AFDelaware County HospitalNucleated erythrocytes [Presence] in Blood by Automated countOrdered By: Anju Lees on 64-03-4505Wgtpvlzvc RBC Auto Ql (Bld)0.1 /100{WBC}0-0.5FDelaware County HospitalPlatelet mean volume Auto (Bld) [Entitic vol]Ordered By: Anju Lees on 18-40-5970Psufvlnh mean volume (Bld) [Entitic vol]8.7 fL6.3-10.7FDelaware County Hospital Platelets Auto (Bld) [#/Vol]Ordered By: Anju Lees on 75-48-6386Ufbfecgkq (Bld) [#/Vol]249 10*3/eM690-667LqvoiiagmHarrison Community HospitalPotassium [Moles/volume] in Serum or PlasmaOrdered By: Anju Lees on 04-17-2023 Potassium [Moles/Vol]4.2 mmol/L3.5-5.1FDelaware County HospitalProtein [Mass/volume] in Serum or PlasmaOrdered By: Anju Lees on 08-38-0790Qkihgem [Mass/Vol]5.7 g/dL6.4-8.9[facility] HospitalRBC Auto (Bld) [#/Vol] Ordered By: Anju Lees on 77-41-4429RRB (Bld) [#/Vol]4.00 10*6/uL3.60-5.00 [facility] Hospitalerum or plasma albumin/globulin mass ratio Ordered By: Anju Lees on 34-10-4905Pssllin/Globulin [Mass ratio]1.9 {ratio} [facility] Hospitalerum or plasma anion gap determinationOrdered By: Anju Lees on 34-40-7823Enefh gap [Moles/Vol]10.3 mmol/L6.0-15.0 [facility] Hospitalodium [Moles/volume] in Serum or PlasmaOrdered By: Anju Lees on 44-14-9899Rixjaq [Moles/Vol]140 mmol/V682-034ClgqdtquqHarrison Community HospitalUrea nitrogen [Mass/volume] in Serum or PlasmaOrdered By: Anju Lees on 60-90-7004Wdap nitrogen [Mass/Vol]23 mg/dL7-25[facility] HospitalWBC Auto (Bld) [#/Vol]Ordered By: Anju Lees on 79-74-2997ZEZ (Bld) [#/Vol]9.1 10*3/uL3.8-11.6FDelaware County Hospital ECHOCARDIO M/2D COMPLETEon 12-90-7249FTJECIHLBW M/2D COMPLETEPatient: SHAYY MAYNARD Exam Date: 05/29/2022 : 1945 Gender:F Ordering : DR VELASQUEZ BUNCH . Admission #: [id number] Family : Order #: [id number] CLICK HERE TO VIEW EXAM ECHOCARDIOGRAM REPORT [...] by: Moises Shore M.D. on 05/30/2022 at 18:32[facility] MemorialI BRAIN WO CONon 02-37-4389PKS BRAIN WO CONEXAMINATION: MRI BRAIN WO CON, 05/29/2022 10:52 AM EDT HISTORY: [...] Electronically authenticated by: RENATA GAYTAN Date: 2022-05-29 13:51[facility] CAROTID ART BILon 21-14-8590AS CAROTID ART BILEXAMINATION: US CAROTID ART JONY HISTORY: Syncope and collapse COMPARISON: [...] Electronically authenticated by: RENATA GAYTAN Date: 2022-05-29 12:55NoAkron Children's HospitalCovid-19 PCR (CVDTBH)on 14-49-3890JPWA-CoV-2 (COVID-19) RNA ARMIN+probe Ql (Unsp spec)Not detectedNormalNOT DETECTEDThe [facility] Comment on above:Result Comment: This test is not yet approved or cleared by the [place] FDA. When there are no FDA-approved or cleared tests available, and other criteria are met, FDA can make tests available under an emergency access mechanism called an Emergency Use Authorization (EUA). The EUA for this test is supported by the [place] of Health and Human Service's (HHS's) declaration that circumstances exist to justify the emergency use of in vitro diagnostics for the detection and/or diagnosis of the virus that causes COVID- 19. This EUA will remain in effect (meaning [...] of clinical signs and symptoms consistent with SARS-CoV-2.Performed By: #### CVDTBH #### [facility] [address] [place] [address] Dr. Samuel KangAmbulatory Clinical Summaryon 44-65-1379Jslgprpzzp Clinical Summary{43-d2-nn-54-00-38-15-ok-3w-nd-53-14-b5-9e-fb-7c}CD:[id number] Memorial Hospital Educationon 29-22-8214Peelvpl EducationNutrition Calorie Counting for Weight Loss Calories are [...] sure to eat fewer calories than your bodyneeds, you should lose weight. Ask your health care provider what a healthy weight is for you. For calorie counting to work, you will need to eat the right number of calories in a day in order to lose a healthy amount of weight per week. A dietitian can help you determine how many calories youneed in a day and will give you [...] label. If a food does not have aNutrition Facts label, try to look up the calories online or ask your dietitian for help. Remember that calories are listed per serving. If you choose to have more than one serving of a food, you will have to multiply the calories per serving by the amount of servings you plan to eat. Forexample, the label on a package of bread [...] you how many calories you have left forthe day to meet your goal. What are [...] juices have a lot of calories, yet donot fill you up. ? Eat nutritious foods and avoid empty calories. Empty calories are calories you get from foods or beverages that do not have many vitamins or protein, such as candy, sweets, and soda. It is better to have a nutritious high-calorie food (such as an avocado) than a food with few nutrients (such as abag of chips). ? Know how many calories [...] serving sizes. You could (more content not included)...[facility] RehabilitationUrology Office/Clinic Noteon 10-85-2286Qfhircv Office/Clinic NoteChief Complaint Pt is here for a follow up to cystocele w/ PVR HPI Staff Shayy is a 75 y.o. female here for a 1 month follow up w/ PVR. DLS patient, PO cystocele repair. Previous Dx: bladder infection, bladder outlet obtruction, cystocele w/ prolapse, dysuria, flank pain, gross hematuria, hx of UTI, postinfective urethral stricture, retention of urine, stress incontinence, urge incontinence, urinary incontinence. S/P repair of cystocele done on 07/19/20, cysto/UD doneon 05/18/20. PVR 0mL. Dysuria: denies Incomplete bladder [...] not bleeding at all now she is voidingwell her urine is clear she says she has no issues she has good control. All is negative said see Dr. Finley in 6 months time. He will check or as needed of course Follow-up With When Contact Information Tushar Nunez MD, Jude Farias, URO In 6 months [phone] Additional Instructions: Patient Education Calorie Counting for Weight Loss Anastasia Marr, personally scribed for Dr. Armando on 09/11/2020 16:08:41. . Documentation recorded by the scribAnastasia james, accurately reflects the services(s) I performedand decisions made by me. Authenticated by Dr. [...] Recorded SARS-CoV-2 (COVID-19) mR (more content not included)...[facility] for RehabilitationComment on above:Result Comment: Electronically Signed By: Thuan ARMANDO MD\.br\Date and Time Signed: 09/11/20 16:11 EDT\.br\Electronically Co- Signed By: Anastasia Cabral\.br\Date and Time Co-Signed: 09/11/20 16:08 EDT Ambulatory Clinical Summaryon 95-94-1264Rsxhnbfmuz Clinical Summary {94-g0-p9-x5-24-ux-13-11-rl-s4-og-99-aa-15-31-5f}CD:[id number] VA Medical Center Educationon 15-05-1167Pjbrrdt EducationUrology Urinary Incontinence Urinary incontinence refers to a condition in which a person is unable to control where and when topass urine. A person with this condition will [...] the bladder, urethra, and sphincter can store andrelease urine. There are different types of urodynamic [...] of moderate-intensity exercise every week. Ask your healthcare provider which activities are safe for you. [...] urges. This can include distraction techniques or controlledbreathing exercises. ? Medicines to relax the bladder muscles and prevent bladder spasms. ? Medicines to help slow or prevent the growth of a man's prostate. ? Botox injections. These can help relax the bladder muscles. ? Using pulses of electricity to help change bladder reflexes (electrical nerve stimulation). ? For women, using a medical laboratory technical officer to prevent urine leaks. This is a [...] after experiencing incontinence. General instructions ? Take ozzs-wac-kzswqrl and prescription medicines only as (more content not included)...[facility] RehabilitationUrology Office/Clinic Noteon 35-30-5229Meunmln Office/Clinic NoteChief Complaint 2 week PO This is a [...] Pt. denies any issues since the procedure. Pt.is informed that it will take up to [...] could understand. Pt. to call the office ifheencounters any issues prior. Pt. acknowledges understanding. 2. [...] Jude Farias, URO [address] [place] [id number]- Additional Instructions: 1mos. f/u Patient Education Urinary [...] with dilation of urethral (more content not included)...[facility] for RehabilitationComment on above: Result Comment: Electronically Signed By: Tushar Nunez MD, Jude Farias\.br\Date and Time Signed: 08/08/2110:28 EDT\.br\Electronically Co-Signed By: Hilda ECHOLS, Kisha Goldberg\.br\Date and Time Co-Signed: 08/08/20 11:15 EDTOperative Reporton 83-48-6368Iytudxhlc [id number]#1.00CD:127 [facility] RehabilitationPathology Noteon 01-73-4799Oyqeasjpq Note [id number]#1.00CD:127[facility] for RehabilitationComment on above:Result Comment: Electronically Signed By: Tushar Nunez MD, Jude Farias\.br\Date and Time Signed: 08/07/2110:22 EDTECG 12-Leadon 94-21-7732NRB 12-[id number]#1.00CD:127NoAs[facility]ab[facility] Note-Physicianon 47-40-9875OI Note-Physician [id number]#1.00CD:[address] [place], [place] [address]Lab Reportson 63-96-6151Ohv Reports [id number]#1.00CD:[address] [place], [place] [address]Lab [id number]#1.00CD:[address] [place], [place] [address]RAD - MISCon 76-15-1712BSS - MISC [id number]#1.00CD:[address] [place], [place] [address]Insurance Correspondence Officeon 70-72-7060Ifqelobnm Correspondence [id number]#1.00CD:[address] [place], [place] [address]Operative Reporton 50-91-7914Fdvfpovda Report [id number]#1.00CD:[address] [place], [place] [address]Physician Orderon 39-41-5248Mknwrtxxg Order [id number]#1.00CD:[address] [place], [place] [address]Pre-Authorization for Medical Treatmenton 65-83-9521Zun-Authorization for Medical [id number]#1.00CD:127[facility] HospitalAmbulatory Clinical Summaryon 34-67-5977Ivtgqnppwi Clinical Summary{33-uo-91-ph-00-3d-18-17-25-97-26-91-45-4e-56-ed}CD:320390LmpqcuFairfield Medical CenterPatient Educationon 07-58-6051Ghcsilr Education Obstetrics and Gynecology Urethral Vaginal Sling A urethral vaginal sling procedure is surgery to correct urinary incontinence. Urinary incontinenceis passing urine without one's control. It is [...] including vitamins, herbs, eye drops, creams, and wzmj-hpt-xinyion medicines. ? Any problems you or family [...] provider about the options you have for slingmaterial and the risks associated with each material. [...] diabetes medicines or blood thinners. ? Taking gxpj-qaf-szustws medicines, vitamins, herbs, and supplements. ? Taking [...] place until your bladder works properly on itsown again. This information is not intended to r (more content not included)...[facility] RehabilitationUrology Office/Clinic Noteon 43-19-8448Jrjfche Office/Clinic NoteChief Complaint 3 week follow up This patient is a 75-year-old female with a history of a grade 2 midline cystocele. She is here today to discuss treatment options. She does have some symptoms of stress incontinence. She underwent cystoscopic examination with dilation of her urethra on May 08 2020. [facility] Staff Shayy is a 75 y.o. female here for [...] pads as a preventative when she leaves thehouse. Ordered: Measure Post Void residual urine and/or bladder capacity by US- non-imaging 90446 Urnls Dip Stick Auto w/o Microscopy POC 38434 Urology Procedure Order 2. Cystocele with prolapse (N81.4: Uterovaginal prolapse, unspecified) Found on Cysto done 06/15/20, Grade 2 Cystocele, pt is having pain and burning with urination. Pt is motivated to proceed with this procedure. Will schedule a Cystocele repair. Risks and Benefits were discussed with the patient. These includebleeding, infection, pain, and need for additional procedures. [...] [facility] [address], [place] [address]- Additional Instructions: Patient Education Urethral Vaginal Sling Tejinder, Libby Chambers, personally scribed for Dr. Finley [...] History of UTI Hypertensio (more content not included)...[facility] Comment on above:Result Comment: Electronically Signed By: Tushar Nunez MD, Jude Farias\.br\Date and Time Signed: 07/11/2113:49 EDT\.br\Electronically Co-Signed By: Libby Chambers MA\.br\Date and Time Co-Signed: 07/11/20 14:30 EDTAmbulatory Clinical Summaryon 63-60-9051Sohrdzshlo Clinical Summary {m3-53-27-21-x0-1m-7f-16-57-9b-92-7b-3f-aa-b3-7a}CD:[id number] Valley Medical CenterPatient Educationon 04-95-7443Mqgicnd EducationUrology Urethral Dilation Urethral dilation is a procedure to stretch open (dilate) the urethra. The urethra is the tube thatdrains urine from the bladder out of the [...] including vitamins, herbs, eye drops, creams, and lnem-nxl-satzudq medicines. ? Any problems you or family [...] tells you to take them. ? Taking vtls-lpz-rufuicl medicines, vitamins, herbs, and supplements. General instructions [...] using a dilator tool. Your surgeon will startwith a very thin dilator, then use wider [...] these instructions at home: Medicines ? Take ofjq-egd-juxdetp and prescription medicines only as told by [...] to prevent or treat constipation: ? Take yyik-hhb-tvsxsxy or prescription medicines. ? Eat foods that [...] urinate. ? You pa (more content not included)...[facility] RehabilitationUrology Office/Clinic Noteon 52-13-5208Qaeldit Office/Clinic NoteChief Complaint Patient is here for a 5 week follow up to cysto. This patient is status post recent cystoscopic examination and dilation of urethral narrowing on 06/15/2020. At that time she was found to have a grade 2 cystocele. I actually wanted to review back inthe office for follow-up visit in a few weeks so it may determine if she has had any improvement after dilation. Is highly likely she will require surgical repair for her cystocele. [facility] Staff Mariama is a 75 y.o. female here for a 5 week follow up. Previous Dx: bladder infection, bladder outlet obstruction, cystocele w/ prolapse, dysuria, flank pain, gross hematuria, hx of UTI postinfectiveurethral stricture, retention of urine, stress incontinence, urge [...] to have this repaired however her cystocele isnot grade 3 or grade 4. She has [...] Urnls Dip Stick Auto w/o Microscopy POC 27873 I have reviewed the previous health record information and history for this patient from Dr. Finley Follow-up With When Contact Information Tushar Nunez MD, Jude Farias, URO [facility] [address], [place] [address]- Additional Instructions: 2 weeks Patient Education Urethral Dilation Maria Del Carmen Marr personally scribed for Dr. Finley on 06/20/2020 14:23:50. . Documentation recorded by the scribeMaria Del Carmen, accurately reflects the services(s) I performedand decisions made by me. Authenticated by Dr. Finley on 06/20/2020 14:34:50. Problem List/Past Medical History Ongoing Arthritis Asthma Bladder infection Bladder outlet obstruction COPD mixed type (more content not included)...[facility] Comment on above:Result Comment: Electronically Signed By: Jude Finley Jr., MD\.br\Date and Time Signed: 06/20/2113:36 EDT\.br\Electronically Co-Signed By: Maria Del Carmen Hernandez MA\.br\Date and Time Co-Signed: 06/20/2113:24 EDTCoding Summary. on 96-48-2349Eiystv Summary. CD:[id number]:[id number]+PGhlYWQ+CC8YOGZhC36daGXtrN9BJ2nKUE4ANWLHOZEIPR9QDO6mq YT3LVriF8PobpGl [file] bGxh (more content not included)...NormalMercy Health Urbana HospitalConsent for Procedure/Surgeryon 35-57-3339Syvubtd for Procedure/Surgery [id number]#1.00CD:127[facility] for RehabilitationConsent for Treatmenton 61-25-8283Wvtizkn for Treatment [id number]#1.00CD:[address] [place], [place] [address]Discharge Instructionson 02-55-2874Uiviqnvyo Instructions [id number]#1.00CD:[address] [place], [place] [address]IntraOperative Documentson 87-10-6017StphdEkrlmlrmz Documents [id number]#1.00CD:[address] [place], [place] [address]Main OR Intraoperative Recordon 33-62-6113Jzmy OR Intraoperative Record IntraOp Document Type FTURO Summary Primary Physician: Jude Finley Jr., MD Finalized Date/Time: 06/15/20 15:02:47 Pt. Name: SHAYY MAYNARD/Sex: 1945 Female Med Rec #: [id number] Physician: Jude Finley Jr., MD Financial #: [id number] Pt. Type: O Room/Bed: / Admit/Disch: 06/15/20 13:40:05 - Institution: Case Times FTURO Entry 1 Patient Times In Room 06/15/20 14:48:00 Out Room 06/15/20 15:02:00 Procedure Times Start 06/15/20 14:50:00 Stop 06/15/20 14:52:00 Anesthesia Times Last Modified By: Mar MELGARVishal 06/15/20 15:02:42 Case Attendance FTURO Entry 1 Entry 2 Entry 3 Case Attendee Tushar Nunez MD, Jude Herrera HEARTH FEEDER, Pauly Manuel RN, Vishal Douglass Role Performed Surgeon - Primary Scrub - Primary Building Cleaner - Primary Time In 06/15/20 14:48:00 06/15/20 14:48:00 06/15/20 14:48:00 Time Out 06/15/20 15:02:00 06/15/20 15:02:00 06/15/20 15:02:00 Procedure CYSTOSCOPY LOCAL(.) CYSTOSCOPY LOCAL(.) CYSTOSCOPY LOCAL(.) Comments Last Modified By: Mar MELGAR, Vishal Manuel RN, Vishal Naqvi RN 06/15/20 15:02:43 06/15/20 15:02:43 06/15/20 15:02:43 Surgical Procedures FTURO Entry 1 Procedure Description Procedure CYSTOSCOPY LOCAL Modifiers . Surgeon Description CYSTOSCOPY LOCALWITH URETHRAL DILATION Primary Procedure Yes Primary Surgeon Tushar Nunez MD, Jude Farias Start 06/15/20 14:50:00 Stop 06/15/20 14:52:00 Anesthesia Type Local Surgical Service Urology Wound Class 2 - Clean-Contaminated Last Modified By: Vishal Manuel RN 06/15/20 14:53:50 General Case Data FTURO Pre-Care Text: Classifies surgical wound, implements aseptic technique, initiates traffic control Entry 1 Case Information OR URO 1 FT Case Level None Wound Class 2 - Clean-Contaminated Specialty Urology Preop Diagnosis CYSTO MAXWELL W/ PROLAPSE Postop Same As Preop Yes Postop Diagnosis CYSTO MAXWELL W/ PROLAPSE Outcomes Met? Yes Last Modified By: Vishal Manuel RN 06/15/20 14:21:48 Post-Care Text: The [...] Jude Finley Jr., MD, Verified (If Participants [place] Pauly WHITESIDE, Applicable) Vishal Manuel RN Time Out Complete 06/15/20 14:49:00 [...] mL Outcomes Met? Yes Last Modified By: Vishal Manuel RN 06/15/20 14:50:10 Post-Care Text: The [...] Out Complete 06/15/20 14:53:00 Last Modified By: Vishal Manuel RN 06/15/20 14:53:56 Case Comments Finalized By: Vishal Manuel RN Document Signatures Signed By: Vishal Manuel RN 06/15/20 15:02[facility] RehabilitationMain OR Preoperative Recordon 72-73-7802Koko OR Preoperative RecordHolding Area Document Type FTURO Summary Primary Physician: Jude Finley Jr., MD Finalized Date/Time: 06/15/20 14:34:27 Pt. Name: SHAYY MAYNARD/Sex: 1945 Female Med Rec #: [id number] Physician: Jude Finley Jr., MD Financial #: [id number] Pt. Type: O Room/Bed: / Admit/Disch: 06/15/20 [...] or her perioperative plan of care The patient'sright to privacy is maintained Surgery Checklist FTURO [...] SPO2 RN Reviewed Yes Last Modified By: Vishal Manuel RN 06/15/20 14:34:26 General Comments: Temp. 36 Finalized By: Vishal Manuel RN Document Signatures Signed By: Shabana Terrell LPN 06/15/20 14:25 Vishal Manuel RN 06/15/20 14:34[facility] for RehabilitationOperative Reporton 10-34-8185Fjqafhnnb ReportPatient: SHAYY MAYNARD Age: 75 years Sex: Female : [...] urine. The Urethra was dilated to: 24 Irish w/ sounds. Devices Implanted: None. Removal: Cystoscope is removed, The patient tolerated it well. Postoperative Information Discharge: Patient is discharged home with antibiotic coverage, Follow up arranged, Office visit will be planned to make arrangements for repair of cystocele..[facility] for RehabilitationComment on above:Result Comment: Electronically Signed By: Tushar Nunez MD, Jude Farias\.br\Date and Time Signed: 06/15/2113:59 EDTPre-Authorization for Medical Treatmenton 91-33-0875Tkz- Authorization for Medical Treatment [id number]#1.00CD:127NoUpper Valley Medical CenterAmbulatory Clinical Summaryon 90-80-9455Fuankwxhnj Clinical Summary {8s-5q-ca-37-h0-56-79-76-76-42-u3-3w-f2-02-f9-5b}CD:629876KwaoofNgnjjkC[facility] Clinic Children's Hospital for RehabilitationPatient Educationon 01-74-8555Yqjywbp EducationUrology Urinary Incontinence Urinary incontinence refers to a condition in which a person is unable to control where and when topass urine. A person with this condition will [...] the bladder, urethra, and sphincter can store andrelease urine. There are different types of urodynamic [...] of moderate-intensity exercise every week. Ask your healthcare provider which activities are safe for you. [...] urges. This can include distraction techniques or controlledbreathing exercises. ? Medicines to relax the bladder muscles and prevent bladder spasms. ? Medicines to help slow or prevent the growth of a man's prostate. ? Botox injections. These can help relax the bladder muscles. ? Using pulses of electricity to help change bladder reflexes (electrical nerve stimulation). ? For women, using a medical laboratory technical officer to prevent urine leaks. This is a [...] after experiencing incontinence. General instructions ? Take bvtd-fie-dzysmwu and prescription medicines only as (more content not included)...[facility] RehabilitationUrology Office/Clinic Noteon 56-77-4547Xkohoth Office/Clinic NoteChief Complaint Patient is here for a follow up to [facility] for ball like object HPI Staff Shayy is a 75 y.o. female here for follow up to [facility] for bladder hanging out, patient insists on planning surgery. Previous Dx: bladder infection, bladder outlet obstruction, dysuria, flank pain, gross hematuria, history of UTI, retention of urine, urethral stricture. 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 Patient was seen at [place] [facility] on 06/07/20 for a ball like object that seemed up against the urethra causing pain, once she voided for the ER the ball was gone and she had no more dysuria.CT, US, and KUB were done all showing [...] among others. The patient, after being informed ofprocedural details and after questions have been answered, wishes to proceed. Full informed consenthas been obtained. Will order Local anesthesia. 2. 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 Urge incontinence (N39.41: Urge incontinence) Mild-Moderate, pt wears a mini pad for protection 4. Stress incontinence (N39.3: Stress incontinence (female) (male)) Mild, ongoinng Follow-up With When Contact Information Jude Finley Jr., [place] [phone] Additional Instructions: Patient Education Urinary Incontinence Anastasia [...] Flank pain Gross hematuria (more content not included)...[facility] Comment on above:Result Comment: Electronically Signed By: Zackery Finley Jr., MDald L\.br\Date and Time Signed: 06/12/2109:30 EDT\.br\Electronically Co-Signed By: Anastasia Cabral\.br\Date and Time Co-Signed: 06/12/20 10:24 EDTCoding Summary.on 64-72-8232Vbwoij Summary.CODING DATE: 05/23/2020 FINAL [facility] DSC STATUS: Home (Routine DC) PAYOR: Medicare APC [...] By: Ryann Villegas Date Saved: 05/23/2020 09:34 [facility] Ohiosenton [id number]:127NoMercy Health Willard Hospitalsent for Procedure/Surgeryon 50-06-7157Eemtosn for Procedure/[id number]#1.00CD:127Normal [facility]en for Treatmenton 01-00-8408Oqbcxle for [id number]#1.00CD:127[facility] [id number]#1.00CD:127[facility] RehabilitationDischarge Instructionson 58-40-0642Knxikypzs Instructions [id number]#1.00CD:127[facility] for RehabilitationIntraOperative Documentson 97-51-3688NqefdNnalykjcm Documents [id number]#1.00CD:127[facility] RehabilitationMain OR Intraoperative Recordon 23-42-0817Ykhi OR Intraoperative Record IntraOp Document Type FTURO Summary Primary Physician: Jude Finley Jr., MD Finalized Date/Time: 05/18/20 14:11:35 Pt. Name: MARIAMA MAYNARD Srinath Grimes/Sex: 1945 Female Med Rec #: [id number] Physician: Jude Finley Jr., MD Financial #: [id number] Pt. Type: O Room/Bed: / Admit/Disch: 05/18/20 13:20:33 - Institution: Case Times FTURO Entry 1 Patient Times In Room 05/18/20 13:57:00 Out Room 05/18/20 14:08:00 Procedure Times Start 05/18/20 13:58:00 Stop 05/18/20 13:59:00 Anesthesia Times Last Modified By: Myah MELGAR, Luz MARCELINO 05/18/20 14:09:40 Case Attendance FTURO Entry 1 Entry 2 Entry 3 Case Attendee Tushar Nunez MD, Jude Glasgow RN, ETHANOR, Luz Cormier CST, Vishal Yo Role Performed Surgeon - Primary Building Cleaner - Primary Scrub - Primary Time In 05/18/20 13:57:00 05/18/20 13:57:00 05/18/20 13:57:00 Time Out 05/18/20 14:03:00 05/18/20 14:03:00 05/18/20 14:03:00 Procedure CYSTOSCOPY LOCAL WITH CYSTOSCOPY LOCAL WITH CYSTOSCOPY LOCAL WITH URETHRAL DILATION(.) URETHRAL DILATION(.) URETHRAL DILATION(.) Comments Last Modified By: Myah RN, ETHANOR, Luz Glasgow RN, ETHANOR, LeahETHAN Moody RNORLuz 05/18/20 14:01:23 05/18/20 14:01:23 05/18/20 14:01:23 Surgical [...] Jude Finley Jr., MD, Verified (If Participants Myah MELGAR, ETHANOR, Luz Applicable) [facility] CST, Vishal Yo Time Out Complete 05/18/20 13:57:00 Allergies [...] 14:02 RYLAND Glasgow RN, Lou Ann 05/18/20 14:11[facility] RehabilitationMain OR Preoperative Recordon 33-35-3506Rmtq OR Preoperative RecordHolding Area Document Type FTURO Summary Primary Physician: Jude Finley Jr., MD Finalized Date/Time: 05/18/20 13:59:17 Pt. Name: MARIAMA MAYNARD Srinath /Sex: 1945 Female Med Rec #: [id number] Physician: Jude Finley Jr., MD Financial #: [id number] Pt. Type: O Room/Bed: / Admit/Disch: 05/18/20 [...] or her perioperative plan of care The patient'sright to privacy is maintained Surgery Checklist FTURO [...] 13:42 RYLAND Glasgow RN, Lou Ann 05/18/20 13:59NoUpper Valley Medical CenterOperative Reporton 54-04-4556Lzabnwurl ReportPatient: MARIAMA MAYNARD Age: 74 years Sex: Female : [...] urine. The Urethra was dilated to: 28 Irish w/ sounds. Devices Implanted: None. Removal: Cystoscope is removed, The patient tolerated it well. Postoperative Information Discharge: Patient is discharged home with antibiotic coverage, Follow up arranged.[facility] for RehabilitationComment on above:Result Comment: Electronically Signed By: Tushar Nunez MD, Jude Zepeda\Date and Time Signed: 05/18/2113:02 EDTAmbulatory Clinical Summaryon 00-35-6648Hceudjhwqc Clinical Summary{[id number]-aj-64-6n-a1-b5-57-7a-53-65-93-fe-5a}CD:[id number] Valley Medical CenterPatient Educationon 33-38-1385Jdnpmmu EducationUrinary Frequency The number of times a normal person urinates depends upon how much liquid they take in and how muchliquid they are losing. If the temperature is hot and there is high humidity then the person will sweat more and usually breathe a little more frequently. These factors decrease the amount of frequency of urination that would be considered normal. The amount you drink is easily determined, but the amount of fluid lost is sometimes more difficultto calculate. Fluid is lost in two ways: [...] from a little less than a quart toa little more than a quart of fluid a day. In normal temperatures and activity levels the average person may urinate 4 to 7 times in a 24-hourperiod. Needing to urinate more often than that [...] the bladder. This loss of sensation makes itharder to sense the bladder needs to be emptied. Over a period of years the bladder is stretched out by constant overfilling. This weakens the bladder muscles so that the bladder does not empty well and has less capacity to fill with new urine. ? Interstitial cystitis (also called painful bladder syndrome). This condition develops because thetissues that line the insider of the bladder [...] contrast dye and then asked to urinate. X- rays are taken to see how your bladder is working. TREATMENT It is important for you to be evaluated to determine if the amount or frequency that you have is unusual or abnormal. If it is found to be abnormal the cause should be determined and this can usuallybe found out easily. Depending upon the cause treatment could include medication, stimulation of the nerves, or surgery. There are not too many things that you can do as an individual to change your urinary frequency. Itis (more content not included)...NormalMercy Health Urbana HospitalUrology Office/Clinic Noteon 27-93-1951Gvyodtd Office/Clinic NoteChief Complaint decreased voiding This patient is a [...] schedule repeat Cysto with UD. The procedure risks,benefits, details, and treatment alternatives have been discussed with the patient. These include bleeding, infection, recurrent scar in over 50%, need for repeat dilation or other procedures, no symptom relief with dilation, among others. Full informed consent has been obtained. Will order Local anesthesia. ABX sent to [facility] in [place]. 2. Retention of urine (R33.9: Retention of [...] one day before the procedure and 1 tabafter the procedure, # 2 cap(s), Refills(s) 0, Pharmacy: [facility]/pharmacy #[id number], 163, cm, 05/11/20 8:31:00 EDT, Height/Length Dosing, 64.2, kg, 05/11/20 8:31:00 EDT, W... Measure Post Void residual urine and/or bladder capacity by US- non-imaging 03860 Urnls Dip Stick Auto w/o Microscopy POC 20805 I have reviewed the previous health record information and history for this pt. from Dr. Finley. Follow-up With When Contact Inf (more content not included)...[facility] for RehabilitationComment on above:Result Comment: Electronically Signed By: Tushar Nunez MD, Jude Farias\.br\Date and Time Signed: 05/11/2109:45 EDT\.br\Electronically Co- Signed By: Kisha Stevens MA\.br\Date and Time Co-Signed: 05/11/20 08:53 EDT Ambulatory Clinical Summaryon 70-95-7429Bppoghahqe Clinical Summary {[id number]-[id number]-f1-71}CD:[id number] Valley Medical CenterPatient Educationon 69-19-4810Uvfixfm EducationObstetrics and Gynecology Acute Urinary Retention, Female You [...] the bladder or the urethra (the tube thatdrains the bladder). ? Psychological problems. TREATMENT Treatment [...] tube) in and go home with a drainagesystem, you will need to discuss the best course of action with your caregiver. While the catheter is in, maintain a good intake of fluids. Keep the drainage bag emptied and lower than your catheter.This is so contaminated (infected) urine will not flow back into your bladder. This could lead to aurinary tract infection. Only take ndcg-adq-nqmsnpw or prescription medicines for pain, discomfort, or fever as directed by your caregiver. SEEK IMMEDIATE MEDICAL CARE IF: You develop chills, fever, or show signs of generalized illness that occurs prior to seeing your caregiver. Document Released: 02/09/2007 Document Revised: 05/04/2012 Document Reviewed: 01/12/2010 ExitCare? Patient Information ?2013 [employer] [facility] for RehabilitationUrology Office/Clinic Noteon 80-62-0250Qoxacee Office/Clinic NoteChief Complaint f/u to cysto UD This patient is a 74-year-old female with a history of gross hematuria and urinary tract infection.She had a recent cystoscopic examination that showed no evidence of malignancy. She was treated by her primary care physician for another urinary tract infection. [facility] Staff Pt is here for f/u [...] Urnls Dip Stick Auto w/o Microscopy POC 98089 3. Dysuria (R30.0: Dysuria) Mild burning w/ urination. I have reviewed the previous health record information and history for this pt. from Dr. Finley. Follow-up With When Contact Information Tushar Nunez MD, Jude Farias [address] [place], [place] [address] Additional Instructions: 1mos. w/ pVR Patient Education [...] furosemide 20 mg T (more content not included)...[facility] for RehabilitationComment on above:Result Comment: Electronically Signed By: Tushar Nunez MD, Jude Farias\.br\Date and Time Signed: 01/04/2012:26 EST\.br\Electronically Co- Signed By: Kisha Stevens MA\.br\Date and Time Co-Signed: 01/04/20 12:01 EST Operative Reporton 36-76-5670Gvtpnsyvf Report [id number]#1.00CD:127NoUpper Valley Medical CenterCult,Bloodon 61-10-5056Ubcn,BloodSpecimen Description .BLOOD Special Requests 3ML LT A.C. Culture NO GROWTH 6 DAYS Report Status FINAL 10/18/2019[facility] HospitalComment on above:Performed By: #### CDP, CP, LIP, TROPI, LIPRF, GLYHGB #### [employer] [address] [place] [address] Commercial Loan Officer: Carlo Mcmanus,BloodSpecimen Description .BLOOD Special Requests back lt arm 3ml Culture NO GROWTH 6 DAYS Report Status FINAL 10/18/2019[facility] HospitalComment on above:Performed By: #### CDP, CP, LIP, TROPI, LIPRF, GLYHGB #### [employer] [address] [place], [place] [phone] Commercial Loan Officer: Carlo Mcmanus,Urineon 34-13-9128Nzhv,UrineSpecimen Description .CLEAN CATCH URINE Special Requests NOT REPORTED Culture STAPHYLOCOCCUS SPECIES, COAGULASE NEGATIVE >018805 CFU/ML Report Status FINAL 10/17/2019 SUSCEPTIBILITY Organism [...] NOT REPORTED Trimethoprim/Sulfa 20 SUSCEPTIBLE Vancomycin 1 SUSCEPTIBLENormalGrant HospitalComment on above: Performed By: #### CDP, CP, LIP, TROPI, LIPRF, GLYHGB #### [facility] [employer] [address] [place] [address] Commercial Loan Officer: Josh Mcmanus Metab w/rfx MGon 10-16-2019(cont.)Normal Grant HospitalComment on above:Result Comment: Average GFR for 70 or more years old: 75 mL/min/1.73sq m Chronic Kidney Disease: <60 mL/min/1.73sq m Kidney failure: <15 mL/min/1.73sq m eGFR calculated using average adult body mass. Additional eGFR calculator available at: http://www.CastingDB/multiple_crcl_2011.htmPerformed By: #### CDP, CP, LIP, TROPI, LIPRF, GLYHGB #### [facility] [employer] [address] [place] [address] Commercial Loan Officer: Brandon Anaya MDAnion gap [Moles/Vol]13 mmol/LNormal9-17Grant HospitalComment on above:Performed By: #### CDP, CP, LIP, TROPI, LIPRF, GLYHGB #### [facility] [employer] [address] [place] [address] Commercial Loan Officer: Brandon Anaya MDCalcium [Mass/Vol]8.6 mg/dLNormal8.6-10.4Grant HospitalComment on above:Performed By: #### CDP, CP, LIP, TROPI, LIPRF, GLYHGB #### [facility] [employer] [address] [place] [address] Commercial Loan Officer: Brandon Anaya MDChloride [Moles/Vol]97 mmol/TPcr23-428JplflGrant HospitalComment on above:Performed By: #### CDP, CP, LIP, TROPI, LIPRF, GLYHGB #### [facility] [address] [place] [address] Commercial Loan Officer: Brandon Anaya MDCO2 [Moles/Vol]25 mmol/SPyaanj84-03GmhbhGrant HospitalComment on above:Performed By: #### CDP, CP, LIP, TROPI, LIPRF, GLYHGB #### [address] [address] Commercial Loan Officer: NEHAL Mcmanusreatinine [Mass/Vol]0.42 mg/dLLow0.50-0.90Grant HospitalComment on above:Performed By: #### CDP, CP, LIP, TROPI, LIPRF, GLYHGB #### [address] [address] Commercial Loan Officer: Brandon Anaya MDGFR, Amer>60Normal>60Grant HospitalComment on above:Performed By: #### CDP, CP, LIP, TROPI, LIPRF, GLYHGB #### [facility] [employer] [address] [place] [address] Commercial Loan Officer: CAROLYN Mcmanus,non Amer>60Normal>60Grant HospitalComment on above:Performed By: #### CDP, CP, LIP, TROPI, LIPRF, GLYHGB #### [facility] [employer] [address] [place] [address] Commercial Loan Officer: Brandon Anaya MDGlucose [Mass/Vol]87 mg/oXTiutpe83-30Nwxzf [facility] CenterComment on above:Performed By: #### CDP, CP, LIP, TROPI, LIPRF, GLYHGB #### [facility] [employer] [address] [place] [address] Commercial Loan Officer: Brandon Anaya MDPotassium [Moles/Vol]3.7 mmol/LNormal3.7-5.3 Grant HospitalComment on above:Performed By: #### CDP, CP, LIP, TROPI, LIPRF, GLYHGB #### [facility] [employer] [address] [place] [address] Commercial Loan Officer: FABIANA Mcmanusodium [Moles/Vol]135 mmol/BUxqwmq322-993FswilGrant HospitalComment on above:Performed By: #### CDP, CP, LIP, TROPI, LIPRF, GLYHGB #### [facility] [address] [place] [address] Commercial Loan Officer: Brandon nAaya MDUrea nitrogen [Mass/Vol]14 mg/dLNormal8-23Grant HospitalComment on above:Performed By: #### CDP, CP, LIP, TROPI, LIPRF, GLYHGB #### [facility] [employer] [address] [place] [address] Commercial Loan Officer: RADHA Mcmanus/CRE RatioNOT REPORTEDNormal9-20Grant HospitalComment on above:Performed By: #### CDP, CP, LIP, TROPI, LIPRF, GLYHGB #### [facility] [employer] [address] [place] [address] Commercial Loan Officer: FABIANA Mcmanustaging:NOT REPORTEDNormalMerEl Camino HospitalComment on above:Performed By: #### CDP, CP, LIP, TROPI, LIPRF, GLYHGB #### [facility] [address] [place] [address] Commercial Loan Officer: Josh Mcmanus Metabolic Panel w/ Reflex to MGon 24-88-5358Uvvat gap [Moles/Vol]13 mmol/L9 - 17 mmol/LMercy Health- [place], KYBun/Cre RatioNOT REPORTEDMercy Health- [place], KYCalcium [Mass/Vol]8.6 mg/dL8.6 - 10.4 mg/dLMer Health- [place], KYChloride [Moles/Vol]97 mmol/LLow98 - 107 mmol/LMCleveland Clinic- [place], KYCO2 [Moles/Vol]25 mmol/L20 - 31 mmol/LMCleveland Clinic- [place], [place] Creatinine [Mass/Vol]0.42 mg/dLLow0.5 - 0.9 mg/dLRegency Hospital Company [place], KYGFR >60>60 mL/minRegency Hospital Company [place], KYGFR Non->60>60 mL/min [facility], KYGFR/1.73 sq M predicted among non-blacks MDRD (S/P/Bld) [Vol rate/Area][facility], KYComment on above:Average GFR for 70 or more years old: 75 mL/min/1.73sq m Chronic Kidney Disease: <60 mL/min/1.73sq m Kidney failure: <15 mL/min/1.73sq m eGFR calculated using average adult body mass. Additional eGFR calculator available at: http://www.CastingDB/multiple_crcl_2012.htm GFR/1.73 sq M predicted among non-blacks MDRD (S/P/Bld) [Vol rate/Area]NOT REPORTEDMercy Health Cl[facility], KYGlucose [Mass/Vol]87 mg/dL70 - 99 mg/dLMercy Health [facility], KYInterpretation and review of laboratory resultsAbnormalMercy Health Cl[facility] Hospital, KYPotassium [Moles/Vol]3.7 mmol/L3.7 - 5.3 mmol/LMClermont County Hospital, KYSodium [Moles/Vol]135 mmol/L135 - 144 mmol/LMClermont County Hospital, KYUrea nitrogen [Mass/Vol]14 mg/dL8 - 23 mg/dLMercy Health Clerm[facility] Hospital, KYCBC auto differentialon 66-40-6534Qaywakgks (Bld) [#/Vol]0.04 10*3/uLMercy Health Clermont Hospital, KYBasophils/100 WBC (Bld)0 %0 - 2 %[facility], KYDifferential TypeNOT REPORTEDMercy Health Clerm[facility], KYEosinophils (Bld) [#/Vol]0.10 10*3/[facility], [place] Eosinophils/100 WBC (Bld)1 %1 - 4 %[facility], INErythrocyte distribution width (RBC) [Ratio]14.6 %High11.8 - 14.4 %[facility], CLARAHematocrit (Bld) [Volume fraction]40.2 %36.3 - 47.1 %[facility], CLARAHemoglobin (Bld) [Mass/Vol]12.6 g/dL11.9 - 15.1 g/dLMercy Health Clerm[facility] Hospital, KYImmature granulocytes (Bld) [#/Vol]0.08 10*3/[facility], CLARAImmature granulocytes (Bld) [#/Vol] 1 %Hjcf3RakwdMercy Health Clermont Hospital, INInterpretation and review of laboratory results AbnormalMercy Health Clermont Hospital, CLARALymphocytes (Bld) [#/Vol]3.05 10*3/[facility], CLARALymphocytes/100 WBC (Bld)32 %24 - 43 %[facility], INMCH (RBC) [Entitic mass]29.0 pg25.2 - 33.5 pgMercy Health Clermont Hospital, INMCHC (RBC) [Mass/Vol]31.3 g/dL28.4 - 34.8 g/dLMercy Health Clerm[facility] Hospital, INMCV (RBC) [Entitic vol]92.4 fL82.6 - 102.9 fLMercy Health Clermont Hospital, CLARAMonocytes (Bld) [#/Vol]0.76 10*3/[facility], KYMonocytes/100 WBC (Bld)8 %3 - 12 %[facility], CLARAPlatelet mean volume (Bld) [Entitic vol]10.6 fL8.1 - 13.5 fLMercy Health Clermont Hospital, KYPlatelets (Bld) [#/Vol]216 10*3/[facility], KYPlatelets (Bld) [#/Vol]NOT REPORTEDMercy Health [facility], INRBC (Bld) [#/Vol]4.35 10*6/uL3.95 - 5.11 m/uLMercy Health- [place], [place] RBC morphology finding Nom (Bld)ANISOCYTOSIS PRESENTLecompte, [place] Segmented neutrophils/100 WBC (Bld)58 %36 - 65 %[place], KYSegs Absolute5.61[place], KYWBC (Bld) [#/Vol]9.6 10*3/uLLecompte, [place] WBC (Bld) [#/Vol]0.0 10*3/uL0.0 per 100 WBCLecompte, KYWBC MorphologyNOT REPORTEDLecompte, KYCBC with Diffon 22-68-7259Hek. Basophil0.04 k/uL Normal0.00-0.20Grant HospitalComment on above:Performed By: #### CDP, CP, LIP, TROPI, LIPRF, GLYHGB #### [facility] [employer] [address] [place] [address] Commercial Loan Officer: Mraie Mcmanus.Imm.Granulocyte0.08 k/uLNormal0.00-0.30Grant HospitalComment on above:Performed By: #### CDP, CP, LIP, TROPI, LIPRF, GLYHGB #### [facility] [employer] [address] [place] [address] Commercial Loan Officer: Marie Mcmanus.Neutrophil (Seg)5.61 k/uLNormal1.50-8.10 Grant HospitalComment on above:Performed By: #### CDP, CP, LIP, TROPI, LIPRF, GLYHGB #### [employer] [address] [place] [address] Commercial Loan Officer: Brandon Anaya MDBasophils/100 WBC (Bld)0 %Normal0-2MHassler Health FarmComment on above:Performed By: #### CDP, CP, LIP, TROPI, LIPRF, GLYHGB #### [facility] [employer] [address] [place] [address] Commercial Loan Officer: Brandon Anaya MDEosinophils (Bld) [#/Vol]0.10 10*3/uLNormal 0.00-0.44Grant HospitalComment on above:Performed By: #### CDP, CP, LIP, TROPI, LIPRF, GLYHGB #### [facility] [address] [place] [address] Commercial Loan Officer: Brandon Anaya MDEosinophils/100 WBC (Bld)1 %Normal1-4Grant HospitalComment on above:Performed By: #### CDP, CP, LIP, TROPI, LIPRF, GLYHGB #### [place] [address] Commercial Loan Officer: Brandon Anaya MDErythrocyte distribution width (RBC) [Ratio]14.6 %High11.8-14.4Grant HospitalComment on above:Performed By: #### CDP, CP, LIP, TROPI, LIPRF, GLYHGB #### [facility] [employer] [address] [place] [address] Commercial Loan Officer: Brandon Anaya MDHematocrit (Bld) [Volume fraction]40.2 %Normal 36.3-47.1MHassler Health FarmComment on above:Performed By: #### CDP, CP, LIP, TROPI, LIPRF, GLYHGB #### [place] [address] Commercial Loan Officer: Brandon Anaya MDHemoglobin (Bld) [Mass/Vol]12.6 g/dLNormal 11.9-15.1MHassler Health FarmComment on above:Performed By: #### CDP, CP, LIP, TROPI, LIPRF, GLYHGB #### [facility] [employer] [address] [place] [address] Commercial Loan Officer: Brandon Anaya MDImmature granulocytes (Bld) [#/Vol]1 %Qjjq8RrijsEl Camino HospitalComment on above:Performed By: #### CDP, CP, LIP, TROPI, LIPRF, GLYHGB #### [facility] [employer] [address] [place] [address] Commercial Loan Officer: Kortney Mcmanusmphocytes (Bld) [#/Vol]3.05 10*3/uLNormal 1.10-3.70Grant HospitalComment on above:Performed By: #### CDP, CP, LIP, TROPI, LIPRF, GLYHGB #### [facility] [employer] [address] [place] [address] Commercial Loan Officer: Bonnie Mcmanuscytes/100 WBC (Bld)32 %Jjmsaa64-20HvlnqGrant HospitalComment on above:Performed By: #### CDP, CP, LIP, TROPI, LIPRF, GLYHGB #### [facility] [employer] [address] [place] [address] Commercial Loan Officer: STEFFANIE Mcmanus (RBC) [Entitic mass]29.0 nxTjtskj28.2-33.5 Grant HospitalComment on above:Performed By: #### CDP, CP, LIP, TROPI, LIPRF, GLYHGB #### [facility] [employer] [address] [place] [address] Commercial Loan Officer: STEFFANIE McmanusC (RBC) [Mass/Vol]31.3 g/zETepegq85.4-34.8 Grant HospitalComment on above:Performed By: #### CDP, CP, LIP, TROPI, LIPRF, GLYHGB #### [facility] [employer] [address] [place] [address] Commercial Loan Officer: LIZZY McmanusCV (RBC) [Entitic vol]92.4 cTNshbha56.6-102.9 Grant HospitalComment on above:Performed By: #### CDP, CP, LIP, TROPI, LIPRF, GLYHGB #### [facility] [address] [place] [address] Commercial Loan Officer: Brandon Anaya MDMonocytes (Bld) [#/Vol]0.76 10*3/uLNormal 0.10-1.20Grant HospitalComment on above:Performed By: #### CDP, CP, LIP, TROPI, LIPRF, GLYHGB #### [facility] [address] [place] [address] Commercial Loan Officer: LIZZY Mcmanusonocytes/100 WBC (Bld)8 %Normal3-12Grant HospitalComment on above:Performed By: #### CDP, CP, LIP, TROPI, LIPRF, GLYHGB #### [address] [address] Commercial Loan Officer: Davidson Mcmanusutrophil (Seg)58 %Hugvfp30-20MnyrcGrant HospitalComment on above:Performed By: #### CDP, CP, LIP, TROPI, LIPRF, GLYHGB #### [place] [address] Commercial Loan Officer: Brandon Anaya MDNRBC Automated0.0 per 100 WBCNormal0.0Grant HospitalComment on above:Performed By: #### CDP, CP, LIP, TROPI, LIPRF, GLYHGB #### [facility] [employer] [address] [place] [address] Commercial Loan Officer: BLADIMIR Mcmanuslatelet mean volume (Bld) [Entitic vol]10.6 fL Normal8.1-13.5Grant HospitalComment on above:Performed By: #### CDP, CP, LIP, TROPI, LIPRF, GLYHGB #### [facility] [employer] [address] [place] [address] Commercial Loan Officer: BLADIMIR Mcmanuslatelets (Bld) [#/Vol]216 10*3/aQBbtncb811-865 Grant HospitalComment on above:Performed By: #### CDP, CP, LIP, TROPI, LIPRF, GLYHGB #### [facility] [employer] [address] [place] [address] Commercial Loan Officer: RICHA Mcmanus (Bld) [#/Vol]4.35 10*6/uLNormal3.95-5.11 Grant HospitalComment on above:Performed By: #### CDP, CP, LIP, TROPI, LIPRF, GLYHGB #### [facility] [employer] [address] [place] [address] Commercial Loan Officer: RICHA Mcmanus morphology finding Nom (Bld)ANISOCYTOSIS PRESENTOhioHealth Hardin Memorial HospitalComment on above:Performed By: #### CDP, CP, LIP, TROPI, LIPRF, GLYHGB #### [facility] [address] [place] [address] Commercial Loan Officer: LUCIAN Mcmanus (Bld) [#/Vol]9.6 10*3/uLNormal3.5-11.3MHassler Health FarmComment on above:Performed By: #### CDP, CP, LIP, TROPI, LIPRF, GLYHGB #### [facility] [employer] [address] [place] [address] Commercial Loan Officer: Gustabo Mcmanus PerformedNOT REPORTEDOhioHealth Hardin Memorial HospitalComment on above:Performed By: #### CDP, CP, LIP, TROPI, LIPRF, GLYHGB #### [employer] [address] [place] [address] Commercial Loan Officer: Bon Mcmanus (Bld) [#/Vol]NOT REPORTEDOhioHealth Hardin Memorial HospitalComment on above:Performed By: #### CDP, CP, LIP, TROPI, LIPRF, GLYHGB #### [facility] [address] [place] [address] Commercial Loan Officer: LUCIAN Mcmanus MorphologyNOT REPORTEDNoalGrant HospitalComment on above:Performed By: #### CDP, CP, LIP, TROPI, LIPRF, GLYHGB #### [facility] [facility] [address] [place] [address] Commercial Loan Officer: WENDY Mcmanus LUMBAR SPINE W WO CONTRASTon [id number] LUMBAR SPINE W WO CONTRASTEXAMINATION: MRI OF THE LUMBAR SPINE WITHOUT AND [...] J Vasc Surg. 2018; 67:2-77 Interpreted by: Ryan Lindsay MD Signed by: Ryan Lindsay MD 10/15/19 Final resultNormMercy Health Anderson Hospital Glucose Fingerstickon [id number] [Mass/Vol]98 mg/dL65 - 105 mg/dLPremier Health [facility]- [place], KYGlucose [Mass/Vol]107 mg/eIFnpj51 - 105 mg/dLRegency Hospital Company [place], KYInterpretation and review of laboratory resultsAbnormLake County Memorial [facility]- [place], KYGlucose [Mass/Vol]81 mg/dL65 - 105 mg/dLPromedica Bay Park Hospital Health- [place], KYURINALYSIS WITH MICROSCOPICon 10-16-2019 Amorphous, UANOT REPORTEDNoneMey Health- [place], KYBacteria, UAMODERATEAbnormal NoneMercy Health- [place], KYBilirubin UrineNegativeNEGATIVEMercy Health- [place], KYCasts UA0 TO 2 HYALINE Reference range defined for non-centrifuged specimen.[facility]- [place], KYColor, UAYELLOWYELLOWMercy Health- [place], KYCrystals, UANOT REPORTED None /HPFMercy Health- [place], KYEpithelial Cells UA0 TO 2[facility]- [place], [place] Glucose, UrNegativeNEGATIVEPromedica Bay [facility]- [place], KYInterpretation and review of laboratory resultsAbnormalMercy Health- [place], KYKetones Ql (U)SMALLAbnormal NEGATIVEMercy Health- [place], KYLeukocyte esterase Test strip Ql (U)NegativeNEGATIVE [facility]- [place], KYMucus, UANOT REPORTEDNoneMey Health- [place], KYNitrite, Urine NegativeNEGATIVEMercy Health- [place], KYOther Observations UANOT REPORTEDNOT REQ. [facility]- [place], KYpH, UA8.0MerKlickitat Valley Health- [place], KYProtein (U) [Mass/Vol]Negative NEGATIVEPromedica Bay Park Hospital Health- [place], KYRBC (U) [#/Vol]2 TO 5[facility]- [place], KYComment on above:Reference range defined for non-centrifuged specimen.Renal Epithelial, UA NOT REPORTED0 /HPFMercy Health- [place], KYSpecific [place], UA1.006[facility]- [place], KYTrichomonas, UANOT REPORTEDNoneMey Health- [place], KYTurbidity UACLOUDYAbnormal CLEARPremier Health [facility]- [place], KYUrine HgbNegativeNEGATIVEPremier Health [facility]- [place], [place] Urobilinogen, UrineNormalNormalPremier Health [facility]- [place], KYWBC, UA0 TO 2[facility]- [place], KYYeast, UANOT REPORTEDNoneMeFirelands Regional Medical Center- [place], [place]-[facility]- [place], [place] Urinalysis w/ Microon 10-16-2019-----NormalGrant Hospital Comment on above:Performed By: #### CDP, CP, LIP, TROPI, LIPRF, GLYHGB #### [employer] [address] [place] [address] Commercial Loan Officer: Brandon Anaya MDAcetoacetic Acid,UrSMALLAbnormalNEGGrant HospitalComment on above:Performed By: #### CDP, CP, LIP, TROPI, LIPRF, GLYHGB #### [employer] [address] [place] [address] Commercial Loan Officer: Rita Mcmanus LM.HPF (Urine sed) [#/Area]MODERATE AbnormalBANNER IRONWOOD MEDICAL CENTEREMeMercy General HospitalComment on above:Performed By: #### CDP, CP, LIP, TROPI, LIPRF, GLYHGB #### [employer] [address] [place] [address] Commercial Loan Officer: Brandon Anaya MDBilirubin, SemiQt,UrNegativeNormalNEGMercy Mccook Medical CenterComment on above:Performed By: #### CDP, CP, LIP, TROPI, LIPRF, GLYHGB #### [facility] [address] [place] [address] Commercial Loan Officer: NEHAL Mcmanusasts LM.LPF (Urine sed) [#/Area]0 TO 2 HYALINE Normal0-8Grant HospitalComment on above:Result Comment: Reference range defined for non-centrifuged specimen.Performed By: #### CDP, CP, LIP, TROPI, LIPRF, GLYHGB #### [facility] [address] [place] [address] Commercial Loan Officer: NEHAL Mcmanusolor (U)YELLOWNormalYELMerEl Camino HospitalComment on above:Performed By: #### CDP, CP, LIP, TROPI, LIPRF, GLYHGB #### [employer] [address] [place] [address] Commercial Loan Officer: Brandon Anaya MDEpithelial cells LM.HPF (Urine sed) [#/Area]0 TO 8Epntmn2-3IehlzGrant HospitalComment on above:Performed By: #### CDP, CP, LIP, TROPI, LIPRF, GLYHGB #### [employer] [address] [place] [address] Commercial Loan Officer: Brandon Anaya MDGlucose Ql (U)NegativeNormalNEGGrant HospitalComment on above:Performed By: #### CDP, CP, LIP, TROPI, LIPRF, GLYHGB #### [facility] [address] [place] [address] Commercial Loan Officer: Brandon Anaya MDHemoglobin, UrNegativeCincinnati VA Medical CenterComment on above:Performed By: #### CDP, CP, LIP, TROPI, LIPRF, GLYHGB #### [facility] [employer] [address] [place] [address] Commercial Loan Officer: Brandon Anaya MDLeukocyte esterase Test strip Ql (U)Negative NormalNEGGrant HospitalComment on above:Performed By: #### CDP, CP, LIP, TROPI, LIPRF, GLYHGB #### [employer] [address] [place] [address] [phone] Commercial Loan Officer: Power Mcmanusite,UrNegativeNormalNEGGrant HospitalComment on above:Performed By: #### CDP, CP, LIP, TROPI, LIPRF, GLYHGB #### [facility] [employer] [address] [place] [address] Commercial Loan Officer: Brandon Anaya MDpH (U)8.0 [pH]Normal5.0-8.0Grant HospitalComment on above:Performed By: #### CDP, CP, LIP, TROPI, LIPRF, GLYHGB #### [employer] [address] [place] [address] Commercial Loan Officer: BLADIMIR Mcmanusrotein Ql (U)NegativeNormalNEGGrant HospitalComment on above:Performed By: #### CDP, CP, LIP, TROPI, LIPRF, GLYHGB #### [facility] [employer] [address] [place] [address] Commercial Loan Officer: Brandon Anaya MDRBC (U) [#/Vol]2 TO 5Cafkgv6-8QjstsGrant HospitalComment on above:Result Comment: Reference range defined for non- centrifuged specimen.Performed By: #### CDP, CP, LIP, TROPI, LIPRF, GLYHGB #### [employer] [address] [place] [address] Commercial Loan Officer: FABIANA Mcmanuspecific gravity (U) [Rel density]1.006Normal 1.005-1.030MerEl Camino HospitalComment on above:Performed By: #### CDP, CP, LIP, TROPI, LIPRF, GLYHGB #### [facility] [address] [place] [address] Commercial Loan Officer: GODWIN McmanusurbidityCLOUDYAbnormalCLEARGrant HospitalComment on above:Performed By: #### CDP, CP, LIP, TROPI, LIPRF, GLYHGB #### [facility] [address] [place] [address] Commercial Loan Officer: Carrie Mcmanusbilinogen,UrNormalNormalNOOhioHealth Mansfield HospitalComment on above:Performed By: #### CDP, CP, LIP, TROPI, LIPRF, GLYHGB #### [facility] [employer] [address] [place] [address] Commercial Loan Officer: Brandon Anaya MDWBC (U) [#/Vol]0 TO 2Iwnoxd6-8RmanvGrant HospitalComment on above:Performed By: #### CDP, CP, LIP, TROPI, LIPRF, GLYHGB #### [facility] [address] [place] [address] Commercial Loan Officer: Iwona Mcmanus sediment LM Ql (Urine sed)NOT REPORTED NormalNONEMercy Sonora Regional Medical CenterComment on above:Performed By: #### CDP, CP, LIP, TROPI, LIPRF, GLYHGB #### [facility] [address] [place] [address] Commercial Loan Officer: Manjula Mcmanusstdamien LM Nom (Urine sed)NOT REPORTEDNormal NONEGrant HospitalComment on above:Performed By: #### CDP, CP, LIP, TROPI, LIPRF, GLYHGB #### [facility] [address] [place] [address] Commercial Loan Officer: Brandon Anaya MDEpithelial, RenalNOT IGNMEHULCckehg5WrgciGrant HospitalComment on above:Performed By: #### CDP, CP, LIP, TROPI, LIPRF, GLYHGB #### [facility] [address] [place] [address] Commercial Loan Officer: Raquel Mcmanusus StrandsNOT REPORTEDCincinnati Shriners HospitalComment on above:Performed By: #### CDP, CP, LIP, TROPI, LIPRF, GLYHGB #### [facility] [address] [place] [address] Commercial Loan Officer: Montana Mcmanus ObservationsNOT REPORTEDrmalNREQGrant HospitalComment on above:Performed By: #### CDP, CP, LIP, TROPI, LIPRF, GLYHGB #### [address] [address] Commercial Loan Officer: Grant McmanushomonasNOT REPORTEDCincinnati Shriners HospitalComment on above:Performed By: #### CDP, CP, LIP, TROPI, LIPRF, GLYHGB #### [address] [address] Commercial Loan Officer: Donna Mcmanus LM Ql (Urine sed)NOT REPORTEDrmalBANNER IRONWOOD MEDICAL CENTERE Grant HospitalComment on above:Performed By: #### CDP, CP, LIP, TROPI, LIPRF, GLYHGB #### [address] [address] Commercial Loan Officer: Josh Mcmanus Metab w/rfx MGon 10-15-2019(cont.)Normal Grant HospitalComment on above:Result Comment: Average GFR for 70 or more years old: 75 mL/min/1.73sq m Chronic Kidney Disease: <60 mL/min/1.73sq m Kidney failure: <15 mL/min/1.73sq m eGFR calculated using average adult body mass. Additional eGFR calculator available at: http://www.Shipu.com/multiple_crcl_2012.htmPerformed By: #### CDP, CP, LIP, TROPI, LIPRF, GLYHGB #### [facility] [address] [place] [address] Commercial Loan Officer: Brandon Anaya MDAnion gap [Moles/Vol]14 mmol/LNormal9-17Grant HospitalComment on above:Performed By: #### CDP, CP, LIP, TROPI, LIPRF, GLYHGB #### [facility] [employer] [address] [place] [address] Commercial Loan Officer: Brandon Anaya MDCalcium [Mass/Vol]8.8 mg/dLNormal8.6-10.4Grant HospitalComment on above:Performed By: #### CDP, CP, LIP, TROPI, LIPRF, GLYHGB #### [facility] [employer] [address] [place] [address] Commercial Loan Officer: Brandon Anaya MDChloride [Moles/Vol]94 mmol/SAzy91-829RjxkeGrant HospitalComment on above:Performed By: #### CDP, CP, LIP, TROPI, LIPRF, GLYHGB #### [facility] [employer] [address] [place] [address] Commercial Loan Officer: Brandon Anaya MDCO2 [Moles/Vol]23 mmol/JUklmlf51-12KvknbGrant HospitalComment on above:Performed By: #### CDP, CP, LIP, TROPI, LIPRF, GLYHGB #### [facility] [employer] [address] [place] [address] Commercial Loan Officer: Brandon Anaya MDCreatinine [Mass/Vol]0.36 mg/dLLow0.50-0.90Grant HospitalComment on above:Performed By: #### CDP, CP, LIP, TROPI, LIPRF, GLYHGB #### [employer] [address] [place] [address] Commercial Loan Officer: Brandon Anaya MDGFR, Amer>60Normal>60MerEl Camino HospitalComment on above:Performed By: #### CDP, CP, LIP, TROPI, LIPRF, GLYHGB #### [facility] [employer] [address] [place] [address] Commercial Loan Officer: Brandon Anyaa MDGFR,non Amer>60Normal>60Grant HospitalComment on above:Performed By: #### CDP, CP, LIP, TROPI, LIPRF, GLYHGB #### [address] [address] Commercial Loan Officer: Brandon Anaya MDGlucose [Mass/Vol]89 mg/sWFlxazy17-07Namvk [facility] Regional Medical CenterComment on above:Performed By: #### CDP, CP, LIP, TROPI, LIPRF, GLYHGB #### [place] [address] Commercial Loan Officer: BLADIMIR Mcmanusotassium [Moles/Vol]3.7 mmol/LNormal3.7-5.3 Grant HospitalComment on above:Performed By: #### CDP, CP, LIP, TROPI, LIPRF, GLYHGB #### [address] [address] Commercial Loan Officer: FABIANA Mcmanusodium [Moles/Vol]131 mmol/KIoy965-509RubksGrant HospitalComment on above:Performed By: #### CDP, CP, LIP, TROPI, LIPRF, GLYHGB #### [place] [address] Commercial Loan Officer: Brandon Anaya MDUrea nitrogen [Mass/Vol]16 mg/dLNormal8-23Grant HospitalComment on above:Performed By: #### CDP, CP, LIP, TROPI, LIPRF, GLYHGB #### [facility] [address] [place] [address] Commercial Loan Officer: RADHA Mcmanus/CRE RatioNOT REPORTEDNormal11-13Grant HospitalComment on above:Performed By: #### CDP, CP, LIP, TROPI, LIPRF, GLYHGB #### [facility] [address] [place], [place] [address] Commercial Loan Officer: FABIANA Mcmanustaging:NOT REPORTEDNormalGrant HospitalComment on above:Performed By: #### CDP, CP, LIP, TROPI, LIPRF, GLYHGB #### [facility] [facility] [address] [place] [address] Commercial Loan Officer: Josh Mcmanus Metabolic Panel w/ Reflex to MGon [id number] gap [Moles/Vol]14 mmol/L9 - 17 mmol/LMClermont County Hospital, KYBun/Cre RatioNOT REPORTEDMercy Health Clerm[facility] Hospital, KYCalcium [Mass/Vol]8.8 mg/dL8.6 - 10.4 mg/dLMercy Health Clermont Hospital, KYChloride [Moles/Vol]94 mmol/LLow98 - 107 mmol/LMClermont County Hospital, KYCO2 [Moles/Vol]23 mmol/L20 - 31 mmol/[facility], [place] Creatinine [Mass/Vol]0.36 mg/dLLow0.5 - 0.9 mg/dLMercy Health Cl[facility] Hospital, KYGFR >60>60 mL/minMercy Health Clermont Hospital, KYGFR Non->60>60 mL/min [facility], KYGFR/1.73 sq M predicted among non-blacks MDRD (S/P/Bld) [Vol rate/Area][facility], KYComment on above:Average GFR for 70 or more years old: 75 mL/min/1.73sq m Chronic Kidney Disease: <60 mL/min/1.73sq m Kidney failure: <15 mL/min/1.73sq m eGFR calculated using average adult body mass. Additional eGFR calculator available at: http://www.CastingDB/multiple_crcl_2012.htm GFR/1.73 sq M predicted among non-blacks MDRD (S/P/Bld) [Vol rate/Area]NOT REPORTEDMercy Health Clermont Hospital, KYGlucose [Mass/Vol]89 mg/dL70 - 99 mg/dLMercy Health Clermont Hospital, KYInterpretation and review of laboratory resultsAbnormalMercy Health [facility] Hospital, KYPotassium [Moles/Vol]3.7 mmol/L3.7 - 5.3 mmol/LMGreen Cross Hospital [place], KYSodium [Moles/Vol]131 mmol/JKkz625 - 144 mmol/LMCleveland Clinic- [place], KYUrea nitrogen [Mass/Vol]16 mg/dL8 - 23 mg/dLMercy Health Clermont Hospital, KYCBC auto differentialon [id number] (Bld) [#/Vol]0.06 10*3/[facility], KYBasophils/100 WBC (Bld)1 %0 - 2 %[facility], KYDifferential TypeNOT REPORTEDMercy Health [facility], KYEosinophils (Bld) [#/Vol]0.13 10*3/[facility], [place] Eosinophils/100 WBC (Bld)1 %1 - 4 %[facility], KYErythrocyte distribution width (RBC) [Ratio]14.6 %High11.8 - 14.4 %[facility], KYHematocrit (Bld) [Volume fraction]41.6 %36.3 - 47.1 %[facility], KYHemoglobin (Bld) [Mass/Vol]13.4 g/dL11.9 - 15.1 g/dLMercy Health Clermont Hospital, KYImmature granulocytes (Bld) [#/Vol]1 %Ymdk5ZyelgPremier Health [facility] Hospital- [place], KYImmature granulocytes (Bld) [#/Vol]0.11 10*3/[facility] [place], KYInterpretation and review of laboratory results AbnormalMercy Health Clermont Hospital, KYLymphocytes (Bld) [#/Vol]2.56 10*3/[facility] [place], KYLymphocytes/100 WBC (Bld)24 %24 - 43 %[facility], INMCH (RBC) [Entitic mass]29.3 pg25.2 - 33.5 pgMercy Health Clermont Hospital, INMCHC (RBC) [Mass/Vol]32.2 g/dL28.4 - 34.8 g/dLLecompte, KYMCV (RBC) [Entitic vol]90.8 fL82.6 - 102.9 fLMercy Health Clermont Hospital, CLARAMonocytes (Bld) [#/Vol]0.78 10*3/uLMercy Health Clermont Hospital, CLARAMonocytes/100 WBC (Bld)7 %3 - 12 %[facility], INPlatelet mean volume (Bld) [Entitic vol]10.6 fL8.1 - 13.5 fLMercy Health Clermont Hospital, INPlatelets (Bld) [#/Vol]NOT REPORTEDLecompte, KYPlatelets (Bld) [#/Vol]241 10*3/uLMercy Health Clermont Hospital, INRBC (Bld) [#/Vol]4.58 10*6/uL3.95 - 5.11 m/uLMercy Health Clermont Hospital, [place] RBC morphology finding Nom (Bld)ANISOCYTOSIS PRESENTLecompte, [place] Segmented neutrophils/100 WBC (Bld)66 %High36 - 65 %[facility], CLARASegs Absolute7.00[facility], INWBC (Bld) [#/Vol]10.6 10*3/uLMercy Health Clermont Hospital, INWBC (Bld) [#/Vol]0.0 10*3/uL0.0 per 100 WBCMercy Health Clermont Hospital, INWBC Morphology NOT REPORTEDMercy Health Clermont Hospital, INCBC with Diffon [id number]. Basophil0.06 k/uL Normal0.00-0.20Grant HospitalComment on above:Performed By: #### CDP, CP, LIP, TROPI, LIPRF, GLYHGB #### [employer] [address] [place] [address] Commercial Loan Officer: Marie Mcmanus.Imm.Granulocyte0.11 k/uLNormal0.00-0.30Grant HospitalComment on above:Performed By: #### CDP, CP, LIP, TROPI, LIPRF, GLYHGB #### [place] [address] Commercial Loan Officer: Marie Mcmanus.Neutrophil (Seg)7.00 k/uLNormal1.50-8.10 Grant HospitalComment on above:Performed By: #### CDP, CP, LIP, TROPI, LIPRF, GLYHGB #### [place] [address] Commercial Loan Officer: Brandon Anaya MDBasophils/100 WBC (Bld)1 %Normal0-2MHassler Health FarmComment on above:Performed By: #### CDP, CP, LIP, TROPI, LIPRF, GLYHGB #### [place] [address] Commercial Loan Officer: Brandon Anaya MDEosinophils (Bld) [#/Vol]0.13 10*3/uLNormal 0.00-0.44Grant HospitalComment on above:Performed By: #### CDP, CP, LIP, TROPI, LIPRF, GLYHGB #### [place] [address] Commercial Loan Officer: MAU Mcmanusosinophils/100 WBC (Bld)1 %Normal1-4Grant HospitalComment on above:Performed By: #### CDP, CP, LIP, TROPI, LIPRF, GLYHGB #### [place] [address] Commercial Loan Officer: Brandon Anaya MDErythrocyte distribution width (RBC) [Ratio]14.6 %High11.8-14.4Grant HospitalComment on above:Performed By: #### CDP, CP, LIP, TROPI, LIPRF, GLYHGB #### [facility] [address] [place] [address] Commercial Loan Officer: Brandon Anaya MDHematocrit (Bld) [Volume fraction]41.6 %Normal 36.3-47.1MHassler Health FarmComment on above:Performed By: #### CDP, CP, LIP, TROPI, LIPRF, GLYHGB #### [facility] [address] [place] [address] Commercial Loan Officer: Brandon Anaya MDHemoglobin (Bld) [Mass/Vol]13.4 g/dLNormal 11.9-15.1MHassler Health FarmComment on above:Performed By: #### CDP, CP, LIP, TROPI, LIPRF, GLYHGB #### [place] [address] Commercial Loan Officer: Brandon Anaya MDImmature granulocytes (Bld) [#/Vol]1 %Tasu9LpuevGrant HospitalComment on above:Performed By: #### CDP, CP, LIP, TROPI, LIPRF, GLYHGB #### [facility] [employer] [address] [place] [address] Commercial Loan Officer: Brandon Anaya MDLymphocytes (Bld) [#/Vol]2.56 10*3/uLNormal 1.10-3.70Grant HospitalComment on above:Performed By: #### CDP, CP, LIP, TROPI, LIPRF, GLYHGB #### [facility] [employer] [address] [place] [address] Commercial Loan Officer: Kortney Mcmanusmphocytes/100 WBC (Bld)24 %Bihbjc74-01IjfreGrant HospitalComment on above:Performed By: #### CDP, CP, LIP, TROPI, LIPRF, GLYHGB #### [facility] [employer] [address] [place] [address] Commercial Loan Officer: LIZZY McmanusCH (RBC) [Entitic mass]29.3 lgGbxqcl91.2-33.5 Grant HospitalComment on above:Performed By: #### CDP, CP, LIP, TROPI, LIPRF, GLYHGB #### [address] [address] Commercial Loan Officer: LIZZY McmanusCHC (RBC) [Mass/Vol]32.2 g/sYUtjvzg21.4-34.8 Grant HospitalComment on above:Performed By: #### CDP, CP, LIP, TROPI, LIPRF, GLYHGB #### [address] [address] Commercial Loan Officer: LIZZY McmanusCV (RBC) [Entitic vol]90.8 hTOnohwv91.6-102.9 Grant HospitalComment on above:Performed By: #### CDP, CP, LIP, TROPI, LIPRF, GLYHGB #### [address] [address] Commercial Loan Officer: LIZZY Mcmanusonocytes (Bld) [#/Vol]0.78 10*3/uLNormal 0.10-1.20Grant HospitalComment on above:Performed By: #### CDP, CP, LIP, TROPI, LIPRF, GLYHGB #### [address] [address] Commercial Loan Officer: LIZZY Mcmanusonocytes/100 WBC (Bld)7 %Normal3-12Grant HospitalComment on above:Performed By: #### CDP, CP, LIP, TROPI, LIPRF, GLYHGB #### [address] [address] Commercial Loan Officer: Brandon Anaya MDNeutrophil (Seg)66 %Mndc18-51VonjqGrant HospitalComment on above:Performed By: #### CDP, CP, LIP, TROPI, LIPRF, GLYHGB #### [employer] [address] [place] [address] Commercial Loan Officer: JOSIE Mcmanus Automated0.0 per 100 WBCNormal0.0Grant HospitalComment on above:Performed By: #### CDP, CP, LIP, TROPI, LIPRF, GLYHGB #### [employer] [address] [place] [address] Commercial Loan Officer: Nadeem Mcmanus mean volume (Bld) [Entitic vol]10.6 fL Normal8.1-13.5Grant HospitalComment on above:Performed By: #### CDP, CP, LIP, TROPI, LIPRF, GLYHGB #### [employer] [address] [place] [address] Commercial Loan Officer: Bon Mcmanus (Bld) [#/Vol]241 10*3/fIJdvrzx761-834 Grant HospitalComment on above:Performed By: #### CDP, CP, LIP, TROPI, LIPRF, GLYHGB #### [facility] [employer] [address] [place] [address] Commercial Loan Officer: RICHA Mcmanus (Bld) [#/Vol]4.58 10*6/uLNormal3.95-5.11 Grant HospitalComment on above:Performed By: #### CDP, CP, LIP, TROPI, LIPRF, GLYHGB #### [employer] [address] [place] [address] Commercial Loan Officer: RICHA Mcmanus morphology finding Nom (Bld)ANISOCYTOSIS PRESENTNormalGrant HospitalComment on above:Performed By: #### CDP, CP, LIP, TROPI, LIPRF, GLYHGB #### [facility] [address] [place] [address] Commercial Loan Officer: LUCIAN Mcmanus ([facility]) [#/Vol]10.6 10*3/uLNormal3.5-11.3[facility] Regional Medical CenterComment on above:Performed By: #### CDP, CP, LIP, TROPI, LIPRF, GLYHGB #### [facility] [address] [place] [address] Commercial Loan Officer: Gustabo Mcmanus PerformedNOT REPORTEDOhioHealth Hardin Memorial HospitalComment on above:Performed By: #### CDP, CP, LIP, TROPI, LIPRF, GLYHGB #### [facility] [address] [place] [address] Commercial Loan Officer: Bon Mcmanus (navarro) [#/Vol]NOT REPORTEDNoMedina HospitalComment on above:Performed By: #### CDP, CP, LIP, TROPI, LIPRF, GLYHGB #### [facility] [address] [place] [address] Commercial Loan Officer: LUCIAN Mcmanus MorphologyNOT REPORTEDOhioHealth Hardin Memorial HospitalComment on above:Performed By: #### CDP, CP, LIP, TROPI, LIPRF, GLYHGB #### [facility] [address] [place] [address] Commercial Loan Officer: WENDY Mcmanus LUMBAR SPINE W WO CONTRASTon [id number] compression fracture of the lumbar spine is [...] Radiol 2013; 10(10):789-794; J Vasc Surg. 2018; 67:2-77[facility], DARLINAMINATION: MRI OF THE LUMBAR SPINE WITHOUT AND [...] roots are intact. The neural foramina are intact.[facility] HospitalRadha Mhpn Incoming Radiant Results From [employer]UP - 10/15/2019 11:11 PM EDT EXAMINATION: MRI [...] 2013; 10(10):789-794; J Vasc Surg. 2018; 67:2-77 [facility], KYMYCOPLASMA PNEUMONIAE ANTIBODY, IGMon [id number] pneumo IgM0.12<0.91[facility], KYComment on above: Reference Range: <=0.90 Negative 0.91-1.09 Equivocal >=1.10 Positive Mycoplasma Ab, IgMon 11-30-3251Wpbvwldgyr Ab, IgM0.12Normal<0.91Grant HospitalComment on above:Result Comment: Reference Range: <=0.90 Negative 0.91-1.09 Equivocal >=1.10 PositivePerformed By: #### CDP, CP, LIP, TROPI, LIPRF, GLYHGB #### [employer] [address] [place] [address] Commercial Loan Officer: LENORE Mcmanus Glucose Fingerstickon [id number] [Mass/Vol]100 mg/dL65 - 105 mg/dLMercy Health Clermont [facility], KYGlucose [Mass/Vol]99 mg/dL 65 - 105 mg/dLMercy Health Cl[facility], KYGlucose [Mass/Vol]91 mg/dL65 - 105 mg/dLMercy Health Clermont [facility], KYGlucose [Mass/Vol]95 mg/dL65 - 105 mg/dLMercy Health Clermont Hospital, KYRENIN on [id number] Activity0.1ng/mL/hrMercy Health Clermont Hospital, KYComment on above: (NOTE) INTERPRETIVE INFORMATION: Renin Activity Adult, Normal sodium diet: Supine ................. 0.2-1.6 ng/mL/hr Upright ................ 0.5-4.0 ng/mL/hr Children, Normal sodium diet, Supine: [place] (1-7 days) ..... 2.0-35.0 ng/mL/hr Cord blood [...] angiotensinogen is decreased. See Compliance Statement D: [email or web address] Performed By: [employer] [address] [place] [address] Toe Laster: Nik Rosas MD, MS Renin CommentNOT [place], KYRenin Activity [phone] Activity0.1 ng/mL/hrNoMedina HospitalComment on above: Result Comment: (NOTE) INTERPRETIVE INFORMATION: Renin Activity Adult, Normal sodium diet: Supine ................. 0.2-1.6 ng/mL/hr Upright ................ 0.5-4.0 ng/mL/hr Children, Normal sodium diet, Supine: [place] (1-7 days) ..... 2.0-35.0 ng/mL/hr Cord blood [...] angiotensinogen is decreased. See Compliance Statement D: [email or web address] Performed By: [employer] [address] [place] [address] Toe Laster: Nik Rosas MD, MSPerformed By: #### CDP, CP, LIP, TROPI, LIPRF, GLYHGB #### [employer] [facility] [place] [address] Commercial Loan Officer: Xochilt Mcmanus [phone] ng/dLMercy Health Clermont HospitalCLARASaint Louis University Hospitalalba on above:(NOTE) INTERPRETIVE INFORMATION: Aldosterone, Serum Reference intervals for [...] reference intervals for this test in the [employer] Laboratory Test Directory (Frontify). Performed By: [employer] [address] [place], [place] [id number] Toe Laster: Nik Rosas MD, MS Aldosterone CommentNOT [place], KYUmeshrehabilitation hospital of ind[place] 10-14-2019 Aldosterone5.0 ng/dLNoMedina HospitalComment on above: Result Comment: (NOTE) INTERPRETIVE INFORMATION: Aldosterone, Serum Reference intervals [...] reference intervals for this test in the [employer] Laboratory Test Directory (Frontify). Performed By: [employer] [address] [place] [address] Toe Laster: Nik Rosas MD, MSPerformed By: #### CDP, CP, LIP, TROPI, LIPRF, GLYHGB #### [facility] HospitalPowerDMS [facility] [place] [address] Commercial Loan Officer: Brandon Anaya MDBasic Metab w/rfx MGon 10-14-2019(cont.)[facility] HospitalComment on above:Result Comment: Average GFR for 70 or more years old: 75 mL/min/1.73sq m Chronic Kidney Disease: <60 mL/min/1.73sq m Kidney failure: <15 mL/min/1.73sq m eGFR calculated using average adult body mass. Additional eGFR calculator available at: http://www.Shipu.com/multiple_crcl_2012.htmPerformed By: #### CDP, CP, LIP, TROPI, LIPRF, GLYHGB #### [address] [address] Commercial Loan Officer: Brandon Anaya MDAnion gap [Moles/Vol]13 mmol/LNormal9-17Grant HospitalComment on above:Performed By: #### CDP, CP, LIP, TROPI, LIPRF, GLYHGB #### [address] [address] Commercial Loan Officer: Brandon Anaya MDCalcium [Mass/Vol]8.5 mg/dLLow8.6-10.4Grant HospitalComment on above:Performed By: #### CDP, CP, LIP, TROPI, LIPRF, GLYHGB #### [address] [address] Commercial Loan Officer: Brandon Anaya MDChloride [Moles/Vol]91 mmol/STcu03-000NqhvkGrant HospitalComment on above:Performed By: #### CDP, CP, LIP, TROPI, LIPRF, GLYHGB #### [address] [address] Commercial Loan Officer: Brandon Anaya MDCO2 [Moles/Vol]26 mmol/BQomdew89-35VjrpvGrant HospitalComment on above:Performed By: #### CDP, CP, LIP, TROPI, LIPRF, GLYHGB #### [facility] [employer] [address] [place] [address] Commercial Loan Officer: Brandon Anaya MDCreatinine [Mass/Vol]0.48 mg/dLLow0.50-0.90Grant HospitalComment on above:Performed By: #### CDP, CP, LIP, TROPI, LIPRF, GLYHGB #### [address] [address] Commercial Loan Officer: Brandon Anaya MDGFR, Amer>60Normal>60MerEl Camino HospitalComment on above:Performed By: #### CDP, CP, LIP, TROPI, LIPRF, GLYHGB #### [address] [address] Commercial Loan Officer: Brandon Anaya MDGFR,non Amer>60Normal>60[facility] Medical CenterComment on above:Performed By: #### CDP, CP, LIP, TROPI, LIPRF, GLYHGB #### [address] [address] Commercial Loan Officer: Brandon Anaya MDGlucose [Mass/Vol]104 mg/iCYajj59-64XxbscKingsburg Medical CenterComment on above:Performed By: #### CDP, CP, LIP, TROPI, LIPRF, GLYHGB #### [address] [address] Commercial Loan Officer: BLADIMIR Mcmanusotassium [Moles/Vol]3.7 mmol/LNormal3.7-5.3 Grant HospitalComment on above:Performed By: #### CDP, CP, LIP, TROPI, LIPRF, GLYHGB #### [address] [address] Commercial Loan Officer: FABIANA Mcmanusodium [Moles/Vol]130 mmol/WJet661-414ZgcyhGrant HospitalComment on above:Performed By: #### CDP, CP, LIP, TROPI, LIPRF, GLYHGB #### [facility] [address] [place] [address] Commercial Loan Officer: Brandon Anaya MDUrea nitrogen [Mass/Vol]19 mg/dLNormal8-23Mer[facility]ook Medical CenterComment on above:Performed By: #### CDP, CP, LIP, TROPI, LIPRF, GLYHGB #### [facility] [address] [place], [place] [phone] Commercial Loan Officer: RADHA Mcmanus/CRE RatioNOT REPORTEDNormal11-13Grant HospitalComment on above:Performed By: #### CDP, CP, LIP, TROPI, LIPRF, GLYHGB #### [facility] [address] [place], [place] [phone] Commercial Loan Officer: FABIANA Mcmanustaging:NOT REPORTEDNormalGrant HospitalComment on above:Performed By: #### CDP, CP, LIP, TROPI, LIPRF, GLYHGB #### [facility] [address] [place], [place] [phone] Commercial Loan Officer: Josh Mcmanus Metabolic Panel w/ Reflex to MGon [id number] gap [Moles/Vol]13 mmol/L9 - 17 mmol/LMClermont County Hospital, KYBun/Cre RatioNOT REPORTEDMercy Health [facility], KYCalcium [Mass/Vol]8.5 mg/dLLow8.6 - 10.4 mg/dLMercy Health Cl[facility] Hospital, KYChloride [Moles/Vol]91 mmol/LLow98 - 107 mmol/LMClermont County Hospital, KYCO2 [Moles/Vol]26 mmol/L20 - 31 mmol/LMClermont County Hospital, [place] Creatinine [Mass/Vol]0.48 mg/dLLow0.5 - 0.9 mg/dLMercy Health Cl[facility]ont Hospital, KYGFR >60>60 mL/minMercy Health Clermont Hospital, KYGFR Non->60>60 mL/min [facility], KYGFR/1.73 sq M predicted among non-blacks MDRD (S/P/Bld) [Vol rate/Area][facility], KYComment on above:Average GFR for 70 or more years old: 75 mL/min/1.73sq m Chronic Kidney Disease: <60 mL/min/1.73sq m Kidney failure: <15 mL/min/1.73sq m eGFR calculated using average adult body mass. Additional eGFR calculator available at: http://www.CastingDB/multiple_crcl_2011.htm GFR/1.73 sq M predicted among non-blacks MDRD (S/P/Bld) [Vol rate/Area]NOT REPORTEDMer[facility] Health [facility], INGlucose [Mass/Vol]104 mg/hEQmrl61 - 99 mg/dLMercy Health Clermont Hospital, INInterpretation and review of laboratory resultsAbnormalMercy Health Cl[facility]ont [facility], KYPotassium [Moles/Vol]3.7 mmol/L3.7 - 5.3 mmol/LMGreen Cross Hospital [place], KYSodium [Moles/Vol]130 mmol/LFum143 - 144 mmol/LMClermont County Hospital, KYUrea nitrogen [Mass/Vol]19 mg/dL8 - 23 mg/dLMercy Health Cl[facility]ont Hospital, INCBC auto differential on 71-94-7999Tasbaoep Lymphocytes3 %[facility], INAtypical Lymphocytes Absolute0.30k/[facility], KYBasophils (Bld) [#/Vol]0.00 10*3/[facility], KYBasophils/100 WBC (Bld)0 %0 - 2 %[facility], INDifferential TypeNOT REPORTEDMercy Health [facility], KYEosinophils (Bld) [#/Vol]0.10 10*3/[facility], KYEosinophils/100 WBC (Bld)1 %1 - 4 %[facility], INErythrocyte distribution width (RBC) [Ratio]14.7 %High11.8 - 14.4 %[facility], [place] Hematocrit (Bld) [Volume fraction]39.5 %36.3 - 47.1 %[facility], [place] Hemoglobin (Bld) [Mass/Vol]12.9 g/dL11.9 - 15.1 g/dLMercy Health Cl[facility]ont Hospital, KYImmature granulocytes (Bld) [#/Vol]0.10 10*3/[facility], KYImmature granulocytes (Bld) [#/Vol]1 %Ygke9JxtkePremier Health Miami [facility] Hospital- [place], KYInterpretation and review of laboratory resultsAbnormalRegency Hospital Company [place], KYLymphocytes (Bld) [#/Vol]2.80 10*3/uLPremier Health Miami Valley Hospital- [place], KYLymphocytes/100 WBC (Bld)28 %24 - 44 %[facility], KYMCH (RBC) [Entitic mass]29.5 pg25.2 - 33.5 pgMercy Health Clermont Hospital, KYMCHC (RBC) [Mass/Vol]32.7 g/dL28.4 - 34.8 g/dLPremier Health Miami Valley Hospital- [place], KYMCV (RBC) [Entitic vol]90.2 fL82.6 - 102.9 fLMercy Health Clermont Hospital, KYMonocytes (Bld) [#/Vol]0.50 10*3/[facility], KYMonocytes/100 WBC (Bld)5 %1 - 7 %[facility], [place] Morphology Alfredo (Bld) [Interp]ANISOCYTOSIS PRESENTMercy Health Cl[facility]ont Hospital, KYPlatelet mean volume (Bld) [Entitic vol]10.1 fL8.1 - 13.5 fLPremier Health Miami Valley Hospital- [place], KYPlatelets (Bld) [#/Vol]190 10*3/[facility], KYPlatelets (Bld) [#/Vol]NOT REPORTED [facility], INRBC (Bld) [#/Vol]4.38 10*6/uL3.95 - 5.11 m/[facility]- [place], KYRBC morphology finding Nom (Bld)NOT REPORTEDMercy Health [facility], INSegmented neutrophils/100 WBC (Bld)62 %36 - 66 %[facility], KYSegs Absolute6.20[facility], KYWBC (Bld) [#/Vol]10.0 10*3/[facility]- [place], KYWBC (Bld) [#/Vol]0.0 10*3/uL0.0 per 100 WBCMercy Health Clermont Hospital, KYWBC MorphologyNOT REPORTED [facility], INCBC with Diffon [id number]. Atypical Lymphs0.30 k/uL NormalGrant HospitalComment on above:Performed By: #### CDP, CP, LIP, TROPI, LIPRF, GLYHGB #### [facility] [address] [place] [address] Commercial Loan Officer: MDAbs. [place] Basophil0.00 k/uLNormal0.0-0.2Mmercy health allen hospitaly [facility] Medical CenterComment on above:Performed By: #### CDP, CP, LIP, TROPI, LIPRF, GLYHGB #### [facility] [address] [place] [address] Commercial Loan Officer: MDAbs. MariettaImm.Granulocyte0.10 k/uLNormal0.00-0.30Grant HospitalComment on above:Performed By: #### CDP, CP, LIP, TROPI, LIPRF, GLYHGB #### [facility] [address] [place] [address] Commercial Loan Officer: MDAbs. MariettaNeutrophil (Seg)6.20 k/uLNormal1.8-7.7Grant HospitalComment on above:Performed By: #### CDP, CP, LIP, TROPI, LIPRF, GLYHGB #### [facility] [address] [place] [address] Commercial Loan Officer: Barbara Mcmanusical Lymphs3 %NormalGrant HospitalComment on above:Performed By: #### CDP, CP, LIP, TROPI, LIPRF, GLYHGB #### [facility] [address] [place] [address] Commercial Loan Officer: Barndon Anaya MDBasophils/100 WBC (Bld)0 %Normal0-2MHassler Health FarmComment on above:Performed By: #### CDP, CP, LIP, TROPI, LIPRF, GLYHGB #### [facility] [address] [place] [address] Commercial Loan Officer: Brandon Anaya MDEosinophils (Bld) [#/Vol]0.10 10*3/uLNormal 0.0-0.4Grant HospitalComment on above:Performed By: #### CDP, CP, LIP, TROPI, LIPRF, GLYHGB #### [facility] [address] [place] [address] Commercial Loan Officer: Brandon Anaya MDEosinophils/100 WBC (Bld)1 %Normal1-4Grant HospitalComment on above:Performed By: #### CDP, CP, LIP, TROPI, LIPRF, GLYHGB #### [facility] [address] [place] [address] Commercial Loan Officer: Brandon Anaya MDImmature granulocytes (Bld) [#/Vol]1 %Wqqv1LqwjaGrant HospitalComment on above:Performed By: #### CDP, CP, LIP, TROPI, LIPRF, GLYHGB #### [facility] [address] [place] [address] Commercial Loan Officer: Kortney Mcmanusmphocytes (Bld) [#/Vol]2.80 10*3/uLNormal 1.0-4.8Grant HospitalComment on above:Performed By: #### CDP, CP, LIP, TROPI, LIPRF, GLYHGB #### [facility] [address] [place] [address] Commercial Loan Officer: Brandon Anaya MDLymphocytes/100 WBC (Bld)28 %Bxexxt30-98FzcrwGrant HospitalComment on above:Performed By: #### CDP, CP, LIP, TROPI, LIPRF, GLYHGB #### [facility] [address] [place] [address] Commercial Loan Officer: LIZZY Mcmanusonocytes (Bld) [#/Vol]0.50 10*3/uLNormal0.1-0.8 Grant HospitalComment on above:Performed By: #### CDP, CP, LIP, TROPI, LIPRF, GLYHGB #### [place] [address] Commercial Loan Officer: LIZZY Mcmanusonocytes/100 WBC (Bld)5 %Normal1-7Grant HospitalComment on above:Performed By: #### CDP, CP, LIP, TROPI, LIPRF, GLYHGB #### [place] [address] Commercial Loan Officer: LIZZY Mcmanusorphology Alfredo (Bld) [Interp]ANISOCYTOSIS PRESENTNormalGrant HospitalComment on above:Performed By: #### CDP, CP, LIP, TROPI, LIPRF, GLYHGB #### [place] [address] Commercial Loan Officer: Brandon Anaya MDNeutrophil (Seg)62 %Emplyw89-40DwwtgGrant HospitalComment on above:Performed By: #### CDP, CP, LIP, TROPI, LIPRF, GLYHGB #### [place] [address] Commercial Loan Officer: Brandon Anaya MDErythrocyte distribution width (RBC) [Ratio]14.7 %High11.8-14.4Grant HospitalComment on above:Performed By: #### CDP, CP, LIP, TROPI, LIPRF, GLYHGB #### [place] [address] Commercial Loan Officer: Brandon Anaya MDHematocrit (Bld) [Volume fraction]39.5 %Normal 36.3-47.1Mmercy health allen hospitaly [facility] Medical CenterComment on above:Performed By: #### CDP, CP, LIP, TROPI, LIPRF, GLYHGB #### [address] [place] [address] Commercial Loan Officer: Brandon Anaya MDHemoglobin (Bld) [Mass/Vol]12.9 g/dLNormal 11.9-15.1MHassler Health FarmComment on above:Performed By: #### CDP, CP, LIP, TROPI, LIPRF, GLYHGB #### [address] [address] Commercial Loan Officer: LIZZY McmanusCH (RBC) [Entitic mass]29.5 oaBxjaai69.2-33.5 Grant HospitalComment on above:Performed By: #### CDP, CP, LIP, TROPI, LIPRF, GLYHGB #### [address] [address] Commercial Loan Officer: STEFFANIE McmanusC (RBC) [Mass/Vol]32.7 g/rVRhslwz62.4-34.8 Grant HospitalComment on above:Performed By: #### CDP, CP, LIP, TROPI, LIPRF, GLYHGB #### [place] [address] Commercial Loan Officer: LIZZY McmanusCV (RBC) [Entitic vol]90.2 rFIuyify14.6-102.9 Grant HospitalComment on above:Performed By: #### CDP, CP, LIP, TROPI, LIPRF, GLYHGB #### [facility] [employer] [address] [place] [address] Commercial Loan Officer: Brandon Anaya MDNRBC Automated0.0 per 100 WBCNormal0.0Grant HospitalComment on above:Performed By: #### CDP, CP, LIP, TROPI, LIPRF, GLYHGB #### [address] [address] Commercial Loan Officer: Geremias Mcmanustelet mean volume (Bld) [Entitic vol]10.1 fL Normal8.1-13.5Grant HospitalComment on above:Performed By: #### CDP, CP, LIP, TROPI, LIPRF, GLYHGB #### [address] [address] Commercial Loan Officer: Bon Mcmanus (Bld) [#/Vol]190 10*3/sTIivvrl271-147 Grant HospitalComment on above:Performed By: #### CDP, CP, LIP, TROPI, LIPRF, GLYHGB #### [address] [address] Commercial Loan Officer: RICHA Mcmanus (Bld) [#/Vol]4.38 10*6/uLNormal3.95-5.11 Grant HospitalComment on above:Performed By: #### CDP, CP, LIP, TROPI, LIPRF, GLYHGB #### [address] [address] Commercial Loan Officer: LUCIAN Mcmanus (Bld) [#/Vol]10.0 10*3/uLNormal3.5-11.3MHassler Health FarmComment on above:Performed By: #### CDP, CP, LIP, TROPI, LIPRF, GLYHGB #### [address] [address] Commercial Loan Officer: Gustabo Mcmanus PerformedNOT REPORTEDOhioHealth Hardin Memorial HospitalComment on above:Performed By: #### CDP, CP, LIP, TROPI, LIPRF, GLYHGB #### [address] [address] Commercial Loan Officer: Bon Mcmanus (Bld) [#/Vol]NOT REPORTEDNoMedina HospitalComment on above:Performed By: #### CDP, CP, LIP, TROPI, LIPRF, GLYHGB #### [facility] [address] [place] [address] Commercial Loan Officer: RICHA Mcmanus morphology finding Nom (Bld)NOT REPORTED [facility] HospitalComment on above:Performed By: #### CDP, CP, LIP, TROPI, LIPRF, GLYHGB #### [facility] [address] [place] [address] Commercial Loan Officer: LUCIAN Mcmanus MorphologyNOT REPORTEDNormalGrant HospitalComment on above:Performed By: #### CDP, CP, LIP, TROPI, LIPRF, GLYHGB #### [facility] [address] [place] [address] Commercial Loan Officer: LIZZY McmanusETANEPJASON PLASMA FREEon 10-14-2019 Metaneph/Plasma InterpSee [facility], KYComment on above:(NOTE) INTERPRETIVE INFORMATION: Metanephrines, Plasma (Free) This test [...] should be considered. See Compliance Statement B: [employer]/CS Performed By: [employer] [address] [place] [address] Toe Laster: Nik Rosas MD, MS Metanephrine0.14 nmol/L0 - 0.49 nmol/[facility], KYNormetanephrine0.73 nmol/L0 - 0.89 nmol/[facility], KYMetanephrine, Plasmaon 10-14-2019 Metaneph InterpSee NoteNormalGrant HospitalComment on above: Result Comment: (NOTE) INTERPRETIVE INFORMATION: Metanephrines, Plasma (Free) This [...] should be considered. See Compliance Statement B: [employer]/CS Performed By: [employer] [address] [place] [address] Toe Laster: Nik Rosas MD, MSPerformed By: #### CDP, CP, LIP, TROPI, LIPRF, GLYHGB #### [facility] HospitalPowerDMS [address] [place] [phone] Commercial Loan Officer: LIZZY Mcmanusetanephrine0.14 nmol/LNormal0.00-0.49Grant HospitalComment on above:Performed By: #### CDP, CP, LIP, TROPI, LIPRF, GLYHGB #### [facility] HospitalPowerDMS [address] [place] [address] Commercial Loan Officer: Brandon Anaya MDNormetanephrine0.73 nmol/LNormal0.00-0.89Grant HospitalComment on above:Performed By: #### CDP, CP, LIP, TROPI, LIPRF, GLYHGB #### [facility] [employer] [address] [place] [address] Commercial Loan Officer: BLADIMIR Mcmanus Glucose Fingerstickon 68-29-6673Zykcevf [Mass/Vol]86 mg/dL65 - 105 mg/dLMercy Health Clermont Hospital, KYGlucose [Mass/Vol]105 mg/dL 65 - 105 mg/dLMercy Health Clermont Hospital, KYGlucose [Mass/Vol]159 mg/zGVygf95 - 105 mg/dL [facility], KYInterpretation and review of laboratory resultsAbnoKindred Hospital Lima, KYGlucose [Mass/Vol]113 mg/iWLnai99 - 105 mg/dLMercy Health Cl[facility], [place] Interpretation and review of laboratory resultsAbnoKindred Hospital [place], KYT. pallidum Abon 10-14-2019T. pallidum, IgGNONREACTIVENONREDayton Osteopathic Hospital, KYComment on above: T. pallidum antibodies are not detected. There is no serological evidence of infection with T. pallidum (early primary syphilis cannot be excluded). Retest in 2-4 weeks if syphilis is clinically suspect. T.pallidum Ab Screenon 10-14-2019T.pallidum Ab ScreenNONREACTIVETrumbull Memorial HospitalComment on above:Result Comment: T. pallidum antibodies are not detected. There is no serological evidence of infection with T. pallidum (early primary syphilis cannot be excluded). Retest in 2-4 weeks if syphilis is clinically suspect.Performed By: #### CDP, CP, LIP, TROPI, LIPRF, GLYHGB #### [employer] [address] [place] [phone] Commercial Loan Officer: Tung Mcmanus [id number] (P) [Mass/Vol]28 umol/L11 - 51 umol/LMClermont County Hospital, KYAmmoniaon 40-95-8895Txbxsjp (P) [Mass/Vol]28 umol/OGhassj44-42DbzriGrant HospitalComment on above: Performed By: #### CDP, CP, LIP, TROPI, LIPRF, GLYHGB #### [employer] [facility] [place], [place] [phone] Commercial Loan Officer: MASHA Mcmanus GAS, VENOUSon [id number] TestNOT REPORTEDMercy Health [facility], KYaPTT Coag (Bld) [Time]37.0 sMercy Health- [place], [place] Carboxyhemoglobin1.3 %0 - 5 %[facility]- [place], KYComment on above: Reference Range: Non-Smokers 0-2% Average Smoker 2-4% Heavy Smoker <10% [id number] AIRMercy Health- [place], KYHCO3, Qaustl21.4 mmol/L24 - 30 mmol/LMercy Health- [place], KYInterpretation and review of laboratory resultsAbnormalMercy Health- [place], KYMethemoglobinNOT REPORTED0 - 1.5 %[facility] [place], KYModeNOT REPORTEDMer[facility] Health- [place], KYNegative Base Excess, VenNOT REPORTED0 - 2 mmol/L [facility] [place], KYNOTIFICATIONNOT REPORTEDMer[facility]- [place], KYNOTIFICATION TIMENOT REPORTEDMercy Health- [place], KYO2 Device/Flow/%NOT REPORTEDMercy Health- [place], KYOxygen saturation in Blood78.1 %60 - 85 %[facility] [place], KYOxyhemoglobin NOT NIKUPSEW08 - 98 %[facility] [place], KYpCO2, Ven42.6[facility]- [place], KYpCO2, Noah, Temp AdjNOT REPORTEDMer[facility] Health- [place], KYPeep/CpapNOT REPORTEDMer[facility]- [place], KYpH, Ven7.439HighMercy Health- [place], KYpH, Noah, Temp AdjNOT REPORTEDMer[facility]- [place], KYpO2, Ven41.1[facility] [place], KYpO2, Noah, Temp AdjNOT REPORTED [facility] [place], KYPositive Base Excess, Ven4.2 mmol/LHigh0 - 2 mmol/LMercy Health- [place], KYPSVNOT REPORTEDMer[facility] Health- [place], KYPt. PositionNOT REPORTEDMer[facility] Health- [place], KYSample SiteNOT REPORTEDMer[facility]- [place], KYSet RateNOT REPORTED [facility] [place], KYText for RespiratoryNOT REPORTEDMercy Health- [place], KYTotal Hb NOT RYOOBYNX12 - 16 g/dlMercy Health- [place], KYTotal RateNOT REPORTEDMer[facility] Health- [place], KYVTNOT REPORTEDMer[facility] Health- [place], KYBasic Metab w/rfx MGon 10-13-2019 Potassium [Moles/Vol]3.4 mmol/LLow3.7-5.3MHassler Health FarmComment on above:Performed By: #### CDP, CP, LIP, TROPI, LIPRF, GLYHGB #### [facility] [employer] [address] [place] [address] Commercial Loan Officer: Brandon Anaya MD(cont.)[facility] Comment on above:Result Comment: Average GFR for 70 or more years old: 75 mL/min/1.73sq m Chronic Kidney Disease: <60 mL/min/1.73sq m Kidney failure: <15 mL/min/1.73sq m eGFR calculated using average adult body mass. Additional eGFR calculator available at: http://www.CastingDB/multiple_crcl_2012.htmPerformed By: #### CDP, CP, LIP, TROPI, LIPRF, GLYHGB #### [facility] [employer] [address] [place] [address] Commercial Loan Officer: Brandon Anaya MDAnion gap [Moles/Vol]16 mmol/LNormal9-17Grant HospitalComment on above:Performed By: #### CDP, CP, LIP, TROPI, LIPRF, GLYHGB #### [facility] [employer] [address] [place] [address] Commercial Loan Officer: Brandon Anaya MDCalcium [Mass/Vol]9.0 mg/dLNormal8.6-10.4Grant HospitalComment on above:Performed By: #### CDP, CP, LIP, TROPI, LIPRF, GLYHGB #### [facility] [employer] [address] [place] [address] Commercial Loan Officer: Brandon Anaya MDChloride [Moles/Vol]90 mmol/SYfa82-137QszalGrant HospitalComment on above:Performed By: #### CDP, CP, LIP, TROPI, LIPRF, GLYHGB #### [facility]Power[facility] [address] [place] [address] Commercial Loan Officer: NEHAL McmanusO2 [Moles/Vol]25 mmol/NEsaoid66-51RspouGrant HospitalComment on above:Performed By: #### CDP, CP, LIP, TROPI, LIPRF, GLYHGB #### [facility] [employer] [address] [place] [address] Commercial Loan Officer: NEHAL Mcmanusreatinine [Mass/Vol]0.47 mg/dLLow0.50-0.90Grant HospitalComment on above:Performed By: #### CDP, CP, LIP, TROPI, LIPRF, GLYHGB #### [facility] [employer] [address] [place] [address] Commercial Loan Officer: Brandon Anaya MDGFR, Amer>60Normal>60Grant HospitalComment on above:Performed By: #### CDP, CP, LIP, TROPI, LIPRF, GLYHGB #### [facility] [employer] [address] [place] [address] Commercial Loan Officer: CAROLYN Mcmanus,non Amer>60Normal>60Grant HospitalComment on above:Performed By: #### CDP, CP, LIP, TROPI, LIPRF, GLYHGB #### [facility] [employer] [address] [place] [address] Commercial Loan Officer: Brandon Anaya MDGlucose [Mass/Vol]113 mg/zCQjrw77-47Ithdn [facility] Regional Medical CenterComment on above:Performed By: #### CDP, CP, LIP, TROPI, LIPRF, GLYHGB #### [facility] [employer] [address] [place] [address] 9[address]23 Commercial Loan Officer: FABIANA Mcmanusodium [Moles/Vol]131 mmol/XYep031-253WdetbGrant HospitalComment on above:Performed By: #### CDP, CP, LIP, TROPI, LIPRF, GLYHGB #### [facility] [employer] [address] [place] [address] Commercial Loan Officer: Brandon Anaya MDUrea nitrogen [Mass/Vol]16 mg/dLNormal8-23Grant HospitalComment on above:Performed By: #### CDP, CP, LIP, TROPI, LIPRF, GLYHGB #### [facility] [address] [place] [address] Commercial Loan Officer: RADHA Mcmanus/CRE RatioNOT REPORTEDNormal9-20Grant HospitalComment on above:Performed By: #### CDP, CP, LIP, TROPI, LIPRF, GLYHGB #### [facility] [address] [place] [address] Commercial Loan Officer: FABIANA Mcmanustaging:NOT REPORTEDNormalGrant HospitalComment on above:Performed By: #### CDP, CP, LIP, TROPI, LIPRF, GLYHGB #### [facility] [address] [place] [address] Commercial Loan Officer: Josh Mcmansu Metabolic Panel w/ Reflex to MGon [id number] gap [Moles/Vol]16 mmol/L9 - 17 mmol/LMercy Health- [place], KYBun/Cre RatioNOT REPORTEDMer Health- [place], KYCalcium [Mass/Vol]9.0 mg/dL8.6 - 10.4 mg/dLMercy Health- [place], KYChloride [Moles/Vol]90 mmol/LLow98 - 107 mmol/LMercy Health- [place], KYCO2 [Moles/Vol]25 mmol/L20 - 31 mmol/LMercy Health- [place], [place] Creatinine [Mass/Vol]0.47 mg/dLLow0.5 - 0.9 mg/dLMercy Health- [place], KYGFR >60>60 mL/minMercy Health- [place], KYGFR Non->60>60 mL/min [facility]- [place], KYGFR/1.73 sq M predicted among non-blacks MDRD (S/P/Bld) [Vol rate/Area]NOT REPORTEDMercy Health [facility], KYGFR/1.73 sq M predicted among non- blacks MDRD (S/P/Bld) [Vol rate/Area][facility], KYComment on above: Average GFR for 70 or more years old: 75 mL/min/1.73sq m Chronic Kidney Disease: <60 mL/min/1.73sq m Kidney failure: <15 mL/min/1.73sq m eGFR calculated using average adult body mass. Additional eGFR calculator available at: http://www.Casting[employer]/multiple_crcl_2012.htm Glucose [Mass/Vol]113 mg/cRHbyn39 - 99 mg/dLMercy Health Cl[facility], KYInterpretation and review of laboratory resultsAbnormalMercy Health [facility], KYPotassium [Moles/Vol]3.4 mmol/LLow3.7 - 5.3 mmol/LMGreen Cross [facility] [place], KYSodium [Moles/Vol] 131 mmol/KEga850 - 144 mmol/LMGreen Cross Hospital [place], KYUrea nitrogen [Mass/Vol]16 mg/dL8 - 23 mg/dLMercy Health Cl[facility], KYCBC auto differentialon [id number] (Bld) [#/Vol]0.07 10*3/uLRegency Hospital Company [place], KYBasophils/100 WBC (Bld)1 %0 - 2 % [facility], KYDifferential TypeNOT REPORTEDMercy Health [facility], KYEosinophils (Bld) [#/Vol]10*3/[facility], KYEosinophils/100 WBC (Bld)0 %Low1 - 4 % [facility], KYErythrocyte distribution width (RBC) [Ratio]15.0 %High11.8 - 14.4 %[facility], KYHematocrit (Bld) [Volume fraction]45.5 %36.3 - 47.1 % [facility], KYHemoglobin (Bld) [Mass/Vol]14.5 g/dL11.9 - 15.1 g/dLMercy Health Clerm[facility], KYImmature granulocytes (Bld) [#/Vol]0.14 10*3/uLPremier Health Miami [facility]- [place], INImmature granulocytes (Bld) [#/Vol]1 %Sogn6LvopwMercy Health Clermont Hospital, INInterpretation and review of laboratory resultsAbnormalMercy Health [facility], KYLymphocytes (Bld) [#/Vol]2.84 10*3/[facility], INLymphocytes/100 WBC (Bld)23 %Low24 - 43 % [facility], [facility] (RBC) [Entitic mass]29.8 pg25.2 - 33.5 pgMercy Health Clermont Hospital, INMCHC (RBC) [Mass/Vol]31.9 g/dL28.4 - 34.8 g/dLMercy Health Clermont Hospital, [facility] (RBC) [Entitic vol]93.4 fL82.6 - 102.9 fLMercy Health Clermont Hospital, INMonocytes (Bld) [#/Vol]1.22 10*3/uLFisher-Titus [facility], INMonocytes/100 WBC (Bld)10 %3 - 12 % [facility], INPlatelet mean volume (Bld) [Entitic vol]10.5 fL8.1 - 13.5 fL [facility], INPlatelets (Bld) [#/Vol]NOT REPORTEDLecompte, [place] Platelets (Bld) [#/Vol]210 10*3/[facility], INRBC (Bld) [#/Vol]4.87 10*6/uL3.95 - 5.11 m/[facility], INRBC morphology finding Nom (Bld) ANISOCYTOSIS PRESENTMercy Health Clermont Hospital, INSegmented neutrophils/100 WBC (Bld)65 % 36 - 65 %[facility], INSegs Absolute8.01[facility], KYWBC (Bld) [#/Vol]12.3 10*3/uLFisher-[facility], KYWBC (Bld) [#/Vol]0.0 10*3/uL0.0 per 100 WBCMercy Health Clermont Hospital, INWBC MorphologyNOT REPORTEDMercy Health [facility], INCBC with Diffon [id number]. Basophil0.07 k/uLNormal0.00-0.20Grant HospitalComment on above:Performed By: #### CDP, CP, LIP, TROPI, LIPRF, GLYHGB #### [facility] [employer] [address] [place] [address]794 Commercial Loan Officer: MDAbs. MariettaImm.Granulocyte0.14 k/uLNormal0.00-0.30Grant HospitalComment on above:Performed By: #### CDP, CP, LIP, TROPI, LIPRF, GLYHGB #### [facility] [employer] [address] [place] [address] 15014 Commercial Loan Officer: Marie Mcmanus.Neutrophil (Seg)8.01 k/uLNormal1.50-8.10 Grant HospitalComment on above:Performed By: #### CDP, CP, LIP, TROPI, LIPRF, GLYHGB #### [facility] [employer] [address] [place] [address] 52053 Commercial Loan Officer: Brandon Anaya MDBasophils/100 WBC (Bld)1 %Normal0-2MHassler Health FarmComment on above:Performed By: #### CDP, CP, LIP, TROPI, LIPRF, GLYHGB #### [facility] [employer] [address] [place] [address] 78811 Commercial Loan Officer: MAU Mcmanusosinophils (Bld) [#/Vol]10*3/uLNormal0.00-0.44 Grant HospitalComment on above:Performed By: #### CDP, CP, LIP, TROPI, LIPRF, GLYHGB #### [facility] [employer] [address] [place] [address] 00739 Commercial Loan Officer: MAU Mcmanusosinophils/100 WBC (Bld)0 %Low1-4Grant HospitalComment on above:Performed By: #### CDP, CP, LIP, TROPI, LIPRF, GLYHGB #### [facility] [employer] [address] [place] [address] 20563 Commercial Loan Officer: Brandon Anaya MDErythrocyte distribution width (RBC) [Ratio]15.0 %High11.8-14.4Grant HospitalComment on above:Performed By: #### CDP, CP, LIP, TROPI, LIPRF, GLYHGB #### [facility] [employer] [address] [place] [address] Commercial Loan Officer: Brandon Anaya MDHematocrit (Bld) [Volume fraction]45.5 %Normal 36.3-47.1MHassler Health FarmComment on above:Performed By: #### CDP, CP, LIP, TROPI, LIPRF, GLYHGB #### [place] [address] Commercial Loan Officer: Brandon Anaya MDHemoglobin (Bld) [Mass/Vol]14.5 g/dLNormal 11.9-15.1MHassler Health FarmComment on above:Performed By: #### CDP, CP, LIP, TROPI, LIPRF, GLYHGB #### [facility] [employer] [address] [place] [address] 83947 Commercial Loan Officer: Brandon Anaya MDImmature granulocytes (Bld) [#/Vol]1 %Szpx4ZbhodGrant HospitalComment on above:Performed By: #### CDP, CP, LIP, TROPI, LIPRF, GLYHGB #### [facility] [employer] [address] [place] [address] Commercial Loan Officer: Brandon Anaya MDLymphocytes (Bld) [#/Vol]2.84 10*3/uLNormal 1.10-3.70Grant HospitalComment on above:Performed By: #### CDP, CP, LIP, TROPI, LIPRF, GLYHGB #### [facility] [employer] [address] [place] [address] 47503 Commercial Loan Officer: Kortney Mcmanusmphocytes/100 WBC (Bld)23 %Uby17-85NlqvmGrant HospitalComment on above:Performed By: #### CDP, CP, LIP, TROPI, LIPRF, GLYHGB #### [address] [address] Commercial Loan Officer: LIZZY McmanusCH (RBC) [Entitic mass]29.8 rcNlaald25.2-33.5 Grant HospitalComment on above:Performed By: #### CDP, CP, LIP, TROPI, LIPRF, GLYHGB #### [address] [address] Commercial Loan Officer: LIZZY McmanusCHC (RBC) [Mass/Vol]31.9 g/jAJhpjnj73.4-34.8 Grant HospitalComment on above:Performed By: #### CDP, CP, LIP, TROPI, LIPRF, GLYHGB #### [place] [address] Commercial Loan Officer: LIZZY McmanusCV (RBC) [Entitic vol]93.4 zUCwrzia39.6-102.9 Grant HospitalComment on above:Performed By: #### CDP, CP, LIP, TROPI, LIPRF, GLYHGB #### [address] [address] Commercial Loan Officer: LIZZY Mcmanusonocytes (Bld) [#/Vol]1.22 10*3/uLHigh0.10-1.20 Grant HospitalComment on above:Performed By: #### CDP, CP, LIP, TROPI, LIPRF, GLYHGB #### [address] [address] Commercial Loan Officer: LIZZY Mcmanusonocytes/100 WBC (Bld)10 %Normal3-12Grant HospitalComment on above:Performed By: #### CDP, CP, LIP, TROPI, LIPRF, GLYHGB #### [facility] [employer] [address] [place] [address]47 Commercial Loan Officer: Brandon Anaya MDNeutrophil (Seg)65 %Jdbzdk43-18EckplGrant HospitalComment on above:Performed By: #### CDP, CP, LIP, TROPI, LIPRF, GLYHGB #### [facility] [employer] [address] [place] [address]647 Commercial Loan Officer: Brandon Anaya MDNRBC Automated0.0 per 100 WBCNormal0.0Grant HospitalComment on above:Performed By: #### CDP, CP, LIP, TROPI, LIPRF, GLYHGB #### [facility] [employer] [address] [place] [address]641 Commercial Loan Officer: Nadeem Mcmanus mean volume (Bld) [Entitic vol]10.5 fL Normal8.1-13.5Grant HospitalComment on above:Performed By: #### CDP, CP, LIP, TROPI, LIPRF, GLYHGB #### [facility] [employer] [address] [place] [address] 7[address]31 Commercial Loan Officer: Geremias Mcmanustemariluz (Bld) [#/Vol]210 10*3/cKQwcypm054-695 Grant HospitalComment on above:Performed By: #### CDP, CP, LIP, TROPI, LIPRF, GLYHGB #### [facility] [employer] [address] [place] [address]340 Commercial Loan Officer: Brandon Anaya MDRBC (Bld) [#/Vol]4.87 10*6/uLNormal3.95-5.11 Grant HospitalComment on above:Performed By: #### CDP, CP, LIP, TROPI, LIPRF, GLYHGB #### [facility] [address] [place] [address] 97049 Commercial Loan Officer: RICHA Mcmanus morphology finding Nom (Bld)ANISOCYTOSIS PRESENTOhioHealth Hardin Memorial HospitalComment on above:Performed By: #### CDP, CP, LIP, TROPI, LIPRF, GLYHGB #### [facility] [address] [place] [address] 41447 Commercial Loan Officer: LUCIAN Mcmanus (Bld) [#/Vol]12.3 10*3/uLHigh3.5-11.3Mercy [facility] Medical CenterComment on above:Performed By: #### CDP, CP, LIP, TROPI, LIPRF, GLYHGB #### [facility] [employer] [address] [place] [address] 66764 Commercial Loan Officer: Gustabo Mcmanus Diff PerformedNOT REPORTEDOhioHealth Hardin Memorial HospitalComment on above:Performed By: #### CDP, CP, LIP, TROPI, LIPRF, GLYHGB #### [facility] [address] [place] [address]999 Commercial Loan Officer: Geremias Mcmanustelets (Bld) [#/Vol]NOT REPORTEDNormFostoria City HospitalComment on above:Performed By: #### CDP, CP, LIP, TROPI, LIPRF, GLYHGB #### [facility] [address] [place] [address] 07364 Commercial Loan Officer: LUCIAN Mcmanus MorphologyNOT REPORTEDOhioHealth Hardin Memorial HospitalComment on above:Performed By: #### CDP, CP, LIP, TROPI, LIPRF, GLYHGB #### [facility] [address] [place] [address] 05829 Commercial Loan Officer: Yane Mcmanusgnesiumon 75-07-9097Tufijzdqt [Mass/Vol]2.2 mg/dLNormal1.6-2.6Mercy [facility] Medical CenterComment on above:Performed By: #### CDP, CP, LIP, TROPI, LIPRF, GLYHGB #### [facility] HospitalPowerD[facility] [address] [place] [address] [phone] Commercial Loan Officer: Yane Mcmanusgnesium [Mass/Vol]2.2 mg/dL1.6 - 2.6 mg/dL [facility], INPOC Glucose Fingerstickon 52-44-9524Yxvwgct [Mass/Vol]121 mg/mMKhrm67 - 105 mg/dLMercy Health [facility], INInterpretation and review of laboratory resultsAbMercy Health [facility], INGlucose [Mass/Vol]100 mg/dL65 - 105 mg/dLMercy Health [facility], KYGlucose [Mass/Vol]104 mg/dL65 - 105 mg/dLMercy Health [facility], KYGlucose [Mass/Vol]123 mg/pDEqee50 - 105 mg/dLMercy Health [facility], [place] Interpretation and review of laboratory resultsAbMercy Health [facility], [place] Venous Blood Gaseson 46-91-0395Dhde Temp.37.0OhioHealth Hardin Memorial HospitalComment on above:Performed By: #### CDP, CP, LIP, TROPI, LIPRF, GLYHGB #### [facility] [address] [place] [address] [phone] Commercial Loan Officer: NEHAL Mcmanuscity emergency hospitallidia Hgb1.3 %Normal0-5Grant HospitalComment on above:Result Comment: Reference Range: Non-Smokers 0-2% Average Smoker 2-4% Heavy Smoker <10%Performed By: #### CDP, CP, LIP, TROPI, LIPRF, GLYHGB #### [facility] [address] [place] [address] [phone] Commercial Loan Officer: Brandon Anaya MD93 M[address]onald StreetComment on above:Performed By: #### CDP, CP, LIP, TROPI, LIPRF, GLYHGB #### [employer] [address] [place] [address] 19146 Commercial Loan Officer: Brandon Anaya MDHCO3 (Bld) [Moles/Vol]28.4 mmol/TGfcgcs87-96 Grant HospitalComment on above:Performed By: #### CDP, CP, LIP, TROPI, LIPRF, GLYHGB #### [address] [address] Commercial Loan Officer: Brandon Anaya MDOxygen (Bld) [Partial pressure]41.1 mm[Hg]Normal 30-50Grant HospitalComment on above:Performed By: #### CDP, CP, LIP, TROPI, LIPRF, GLYHGB #### [facility] [employer] [address] [place] [address] 20675 Commercial Loan Officer: Brandon Anaya MDOxygen saturation in Blood78.1 %Lwumld12.0-85.0 Grant HospitalComment on above:Performed By: #### CDP, CP, LIP, TROPI, LIPRF, GLYHGB #### [facility] [employer] [address] [place] [address] 41348 Commercial Loan Officer: Bladimir McmanusCO242.1Hjxkri50-70YfvojGrant HospitalComment on above:Performed By: #### CDP, CP, LIP, TROPI, LIPRF, GLYHGB #### [facility] [employer] [address] [place] [address] 88691 Commercial Loan Officer: Bladimir Mcmanus (Bld)7.439 [pH]High7.320-7.420Grant HospitalComment on above:Performed By: #### CDP, CP, LIP, TROPI, LIPRF, GLYHGB #### [facility] [employer] [address] [place] [address] 01192 Commercial Loan Officer: BLADIMIR Mcmanusositive Base Excess4.2 mmol/LHigh0.0-2.0Grant HospitalComment on above:Performed By: #### CDP, CP, LIP, TROPI, LIPRF, GLYHGB #### [facility] [address] [place] [address] 21856 Commercial Loan Officer: Lalita Mcmanus TestNOT REPORTEDNormalMercy Sonora Regional Medical CenterComment on above:Performed By: #### CDP, CP, LIP, TROPI, LIPRF, GLYHGB #### [facility] [address] [place] [address] 87949 Commercial Loan Officer: LIZZY McmanusethemoglobinNOT REPORTEDNormal0.0-1.5Grant HospitalComment on above:Performed By: #### CDP, CP, LIP, TROPI, LIPRF, GLYHGB #### [facility] [address] [place] [address] 9[address]39 Commercial Loan Officer: LIZZY McmanusodeNOT REPORTEDNormalMerEl Camino HospitalComment on above:Performed By: #### CDP, CP, LIP, TROPI, LIPRF, GLYHGB #### [facility] [address] [place] [address] 80234 Commercial Loan Officer: Brandon Anaya MDNegpeterson Base ExcessNOT REPORTEDNormal0.0-2.0 Grant HospitalComment on above:Performed By: #### CDP, CP, LIP, TROPI, LIPRF, GLYHGB #### [facility] [address] [place] [address] 57042 Commercial Loan Officer: Brandon Anaya MDNotification TimeNOT REPORTEDNormalMercy Sonora Regional Medical CenterComment on above:Performed By: #### CDP, CP, LIP, TROPI, LIPRF, GLYHGB #### [facility] [address] [place] [address] 35704 Commercial Loan Officer: Brandon Anaya MDNotification:NOT REPORTEDNormalMercy Sonora Regional Medical CenterComment on above:Performed By: #### CDP, CP, LIP, TROPI, LIPRF, GLYHGB #### [facility] [address] [place] [address] 69658 Commercial Loan Officer: Brandon Anaya MDO2 Device/Flow/%NOT REPORTEDNormalGrant HospitalComment on above:Performed By: #### CDP, CP, LIP, TROPI, LIPRF, GLYHGB #### [facility] [address] [place] [address] 59098 Commercial Loan Officer: Brandon Anaya MDOxyhemoglobinNOT QLMXPQCIBlezmb12.0-98.0Grant HospitalComment on above:Performed By: #### CDP, CP, LIP, TROPI, LIPRF, GLYHGB #### [facility] [address] [place] [address]856 Commercial Loan Officer: BLADIMIR Mcmanusco2 Adj'd for Temp.NOT BMVJTGKKEtpmzz20-39YhezyGrant HospitalComment on above:Performed By: #### CDP, CP, LIP, TROPI, LIPRF, GLYHGB #### [facility] [address] [place] [address] 72628 Commercial Loan Officer: BLADIMIR McmanusEEP/CPAPNOT REPORTEDNormalGrant HospitalComment on above:Performed By: #### CDP, CP, LIP, TROPI, LIPRF, GLYHGB #### [facility] [address] [place] [address] 06839 Commercial Loan Officer: Brandon Anaya [facility] Adjst'd for Temp.NOT REPORTEDNormal 7.320-7.420Grant HospitalComment on above:Performed By: #### CDP, CP, LIP, TROPI, LIPRF, GLYHGB #### [facility] [address] [place] [address] 22853 Commercial Loan Officer: Bladimir Mcmanus Adj'd for Temp.NOT GQNFBECOXpowbt34-96BgxpiGrant HospitalComment on above:Performed By: #### CDP, CP, LIP, TROPI, LIPRF, GLYHGB #### [facility] [address] [place] [address] 9[address]00 Commercial Loan Officer: MARIO McmanusVNOT REPORTEDNormalMercy Sonora Regional Medical CenterComment on above:Performed By: #### CDP, CP, LIP, TROPI, LIPRF, GLYHGB #### [facility] [address] [place] [address] 03191 Commercial Loan Officer: MDPt. Marietta PositionNOT REPORTEDNormalMercy Sonora Regional Medical CenterComment on above:Performed By: #### CDP, CP, LIP, TROPI, LIPRF, GLYHGB #### [facility] [address] [place] [address] 31469 Commercial Loan Officer: Shannan Mcmanus RateNOT REPORTEDNormalMercy Sonora Regional Medical CenterComment on above:Performed By: #### CDP, CP, LIP, TROPI, LIPRF, GLYHGB #### [facility] [address] [place] [address] 84880 Commercial Loan Officer: Cooper Mcmanus DrawnNOT REPORTEDNormalGrant HospitalComment on above:Performed By: #### CDP, CP, LIP, TROPI, LIPRF, GLYHGB #### [facility] [address] [place] [address] 69968 Commercial Loan Officer: Perico Mcmanus for RespiratoryNOT REPORTEDNormalMercy Sonora Regional Medical CenterComment on above:Performed By: #### CDP, CP, LIP, TROPI, LIPRF, GLYHGB #### [facility] [address] [place] [address]361 Commercial Loan Officer: Orlin Mcmanus HbNOT BZOVTJBNWsppsm54.0-16.0Mer[facility] Medical CenterComment on above:Performed By: #### CDP, CP, LIP, TROPI, LIPRF, GLYHGB #### [facility] [place] [address] Commercial Loan Officer: Orlin Mcmanus RateNOT REPORTEDOhioHealth Hardin Memorial HospitalComment on above:Performed By: #### CDP, CP, LIP, TROPI, LIPRF, GLYHGB #### [facility] [address] [place] [address] 6[address]50 Commercial Loan Officer: Brandon Anaya MDVTSONIA Ashland Community HospitalComment on above:Performed By: #### CDP, CP, LIP, TROPI, LIPRF, GLYHGB #### [facility] [address] [place] [address] 53376 Commercial Loan Officer: Kd Mcmanusosterone 16-34-7834Uzmeggj:NOT REPORTED [facility] HospitalComment on above:Performed By: #### CDP, CP, LIP, TROPI, LIPRF, GLYHGB #### [facility] [address] [place] [address]005 Commercial Loan Officer: Josh Mcmanus Metab w/rfx MGon 21-49-8350Bxhgsfdkk [Moles/Vol]3.3 mmol/LLow3.7-5.3Mer[facility] Medical CenterComment on above: Performed By: #### CDP, CP, LIP, TROPI, LIPRF, GLYHGB #### [facility] [address] [place] [address]18 Commercial Loan Officer: Brandon Anaya MD(cont.)[facility] Comment on above:Result Comment: Average GFR for 70 or more years old: 75 mL/min/1.73sq m Chronic Kidney Disease: <60 mL/min/1.73sq m Kidney failure: <15 mL/min/1.73sq m eGFR calculated using average adult body mass. Additional eGFR calculator available at: http://www.S[employer]u.[employer]/multiple_crcl_2012.htmPerformed By: #### CDP, CP, LIP, TROPI, LIPRF, GLYHGB #### [facility] [address] [place] [address]49 Commercial Loan Officer: Brandon Anaya MDAnion gap [Moles/Vol]12 mmol/LNormal9-17Grant HospitalComment on above:Performed By: #### CDP, CP, LIP, TROPI, LIPRF, GLYHGB #### [facility] [employer] [address] [place] [address]16 Commercial Loan Officer: Brandon Anaya MDCalcium [Mass/Vol]8.6 mg/dLNormal8.6-10.4Grant HospitalComment on above:Performed By: #### CDP, CP, LIP, TROPI, LIPRF, GLYHGB #### [facility] [employer] [address] [place] [address] 97263 Commercial Loan Officer: Brandon Anaya MDChloride [Moles/Vol]94 mmol/EIku45-928JpuyoGrant HospitalComment on above:Performed By: #### CDP, CP, LIP, TROPI, LIPRF, GLYHGB #### [facility] [employer] [address] [place] [address] 08332 Commercial Loan Officer: Brandon Anaya MDCO2 [Moles/Vol]26 mmol/DYmuvaa69-74UwdsdGrant HospitalComment on above:Performed By: #### CDP, CP, LIP, TROPI, LIPRF, GLYHGB #### [facility] [employer] [address] [place] [address] 38980 Commercial Loan Officer: Brandon Anaya MDCreatinine [Mass/Vol]0.46 mg/dLLow0.50-0.90Grant HospitalComment on above:Performed By: #### CDP, CP, LIP, TROPI, LIPRF, GLYHGB #### [employer] [address] [place] [address]366 Commercial Loan Officer: Brandon Madoff, MDGFR, Amer>60Normal>60MerEl Camino HospitalComment on above:Performed By: #### CDP, CP, LIP, TROPI, LIPRF, GLYHGB #### [facility] [address] [place] [address] 73722 Commercial Loan Officer: Brandon Anaya MDGFR,non Amer>60Normal>60MerEl Camino HospitalComment on above:Performed By: #### CDP, CP, LIP, TROPI, LIPRF, GLYHGB #### [facility] [address] [place] [address]59 Commercial Loan Officer: Brandon Anaya MDGlucose [Mass/Vol]136 mg/gIDelq08-92ZcnwoKingsburg Medical CenterComment on above:Performed By: #### CDP, CP, LIP, TROPI, LIPRF, GLYHGB #### [facility] [address] [place] [address] 42693 Commercial Loan Officer: FABIANA Mcmanusodium [Moles/Vol]132 mmol/WFhv986-118CjsgaEl Camino HospitalComment on above:Performed By: #### CDP, CP, LIP, TROPI, LIPRF, GLYHGB #### [facility] [address] [place] [address] 90646 Commercial Loan Officer: Brandon Anaya MDUrea nitrogen [Mass/Vol]16 mg/dLNormal8-23Grant HospitalComment on above:Performed By: #### CDP, CP, LIP, TROPI, LIPRF, GLYHGB #### [facility] [address] [place] [address] 23389 Commercial Loan Officer: RADHA Mcmanus/CRE RatioNOT REPORTEDNormal9-20Grant HospitalComment on above:Performed By: #### CDP, CP, LIP, TROPI, LIPRF, GLYHGB #### [facility] [address] [place] [address] [phone] Commercial Loan Officer: FABIANA Mcmanustaging:NOT REPORTEDNormFostoria City HospitalComment on above:Performed By: #### CDP, CP, LIP, TROPI, LIPRF, GLYHGB #### [employer] [address] [place], [place] [phone] Commercial Loan Officer: Josh Mcmanus Metabolic Panel w/ Reflex to MGon 97-43-2069Wdsvw gap [Moles/Vol]12 mmol/L9 - 17 mmol/LMClermont County Hospital, KYBun/Cre RatioNOT REPORTEDMercy Health Clerm[facility] Hospital, KYCalcium [Mass/Vol]8.6 mg/dL8.6 - 10.4 mg/dLMercy Health Clermont Hospital, KYChloride [Moles/Vol]94 mmol/LLow98 - 107 mmol/[facility], KYCO2 [Moles/Vol]26 mmol/L20 - 31 mmol/LMGreen Cross Hospital [place], [place] Creatinine [Mass/Vol]0.46 mg/dLLow0.5 - 0.9 mg/dLMercy Health Clerm[facility] Hospital, KYGFR >60>60 mL/minMercy Health Clermont Hospital, KYGFR Non->60>60 mL/min [facility], KYGFR/1.73 sq M predicted among non-blacks MDRD (S/P/Bld) [Vol rate/Area][facility], KYComment on above:Average GFR for 70 or more years old: 75 mL/min/1.73sq m Chronic Kidney Disease: <60 mL/min/1.73sq m Kidney failure: <15 mL/min/1.73sq m eGFR calculated using average adult body mass. Additional eGFR calculator available at: http://www.Shipu.com/multiple_crcl_2012.htm GFR/1.73 sq M predicted among non-blacks MDRD (S/P/Bld) [Vol rate/Area]NOT REPORTEDMer[facility] Health [facility], KYGlucose [Mass/Vol]136 mg/qOLraj65 - 99 mg/dLMercy Health Clermont Hospital, KYInterpretation and review of laboratory resultsAbnormalMer[facility] Health [facility], KYPotassium [Moles/Vol]3.3 mmol/LLow3.7 - 5.3 mmol/LMClermont County Hospital, INSodium [Moles/Vol]132 mmol/WWqw578 - 144 mmol/LMClermont County Hospital, INUrea nitrogen [Mass/Vol]16 mg/dL8 - 23 mg/dLMercy Health Clermont Hospital, INCBC auto differential on 63-00-5033Kpymdlcvf (Bld) [#/Vol]0.04 10*3/[facility], [place] Basophils/100 WBC (Bld)0 %0 - 2 %[facility], INDifferential TypeNOT REPORTEDMer[facility] Health [facility], INEosinophils (Bld) [#/Vol]10*3/[facility], [place] Eosinophils/100 WBC (Bld)0 %Low1 - 4 %[place], KYErythrocyte distribution width (RBC) [Ratio]14.7 %High11.8 - 14.4 %[facility], [place] Hematocrit (Bld) [Volume fraction]40.5 %36.3 - 47.1 %[facility], [place] Hemoglobin (Bld) [Mass/Vol]12.7 g/dL11.9 - 15.1 g/dLMercy Health Clermont Hospital, INImmature granulocytes (Bld) [#/Vol]0.11 10*3/[facility], INImmature granulocytes (Bld) [#/Vol]1 %Tldn8VgkzlLecompte, KYInterpretation and review of laboratory resultsAbnormalMercy Health [facility], INLymphocytes (Bld) [#/Vol]1.50 10*3/[facility], INLymphocytes/100 WBC (Bld)12 %Low24 - 43 %[facility], INMCH (RBC) [Entitic mass]29.4 pg25.2 - 33.5 pgMercy Health Clermont Hospital, [place] MCHC (RBC) [Mass/Vol]31.4 g/dL28.4 - 34.8 g/dLMercy Health Clermont Hospital, INMCV (RBC) [Entitic vol]93.8 fL82.6 - 102.9 fLMercy Health Clermont Hospital, KYMonocytes (Bld) [#/Vol] 0.87 10*3/[facility], KYMonocytes/100 WBC (Bld)7 %3 - 12 %[facility], KYPlatelet mean volume (Bld) [Entitic vol]10.7 fL8.1 - 13.5 fLMercy Health Clermont Hospital, KYPlatelets (Bld) [#/Vol]196 10*3/[facility], KYPlatelets (Bld) [#/Vol]NOT REPORTEDVan [facility]ert [facility] (Bld) [#/Vol]4.32 10*6/uL3.95 - 5.11 m/[facility], [facility] morphology finding Nom (Bld)ANISOCYTOSIS PRESENT [facility], INSegmented neutrophils/100 WBC (Bld)79 %High36 - 65 %[facility], INSegs Absolute9.64HighMercy Health Cl[facility]ont Hospital, KYWBC (Bld) [#/Vol]12.2 10*3/uLFisher-Titus [facility], KYWBC (Bld) [#/Vol]0.0 10*3/uL0.0 per 100 WBCMercy Health Clermont Hospital, INWBC MorphologyNOT REPORTEDMer[facility] Health [facility], [facility] with Diffon [id number]. Basophil0.04 k/uLNormal0.00-0.20[facility] Comment on above:Performed By: #### CDP, CP, LIP, TROPI, LIPRF, GLYHGB #### [employer] [address] [place] [address] [phone] Commercial Loan Officer: Marie Mcmanus.Imm.Granulocyte0.11 k/uLNormal0.00-0.30Grant HospitalComment on above:Performed By: #### CDP, CP, LIP, TROPI, LIPRF, GLYHGB #### [employer] [address] [place] [address] [phone] Commercial Loan Officer: Marie Mcmanus.Neutrophil (Seg)9.64 k/uLHigh1.50-8.10Grant HospitalComment on above:Performed By: #### CDP, CP, LIP, TROPI, LIPRF, GLYHGB #### [facility] [employer] [address] [place] [address] 9[address] Commercial Loan Officer: Brandon Anaya MDBasophils/100 WBC (Bld)0 %Normal0-2MHassler Health FarmComment on above:Performed By: #### CDP, CP, LIP, TROPI, LIPRF, GLYHGB #### [facility] [employer] [address] [place] [address] Commercial Loan Officer: Brandon Anaya MDEosinophils (Bld) [#/Vol]10*3/uLNormal0.00-0.44 [facility] HospitalComment on above:Performed By: #### CDP, CP, LIP, TROPI, LIPRF, GLYHGB #### [facility] [employer] [address] [place] [address] Commercial Loan Officer: MAU Mcmanusosinophils/100 WBC (Bld)0 %Low1-4Grant HospitalComment on above:Performed By: #### CDP, CP, LIP, TROPI, LIPRF, GLYHGB #### [facility] [employer] [address] [place] [address] Commercial Loan Officer: Brandon Anaya MDErythrocyte distribution width (RBC) [Ratio]14.7 %High11.8-14.4Grant HospitalComment on above:Performed By: #### CDP, CP, LIP, TROPI, LIPRF, GLYHGB #### [facility] [employer] [address] [place] [address] Commercial Loan Officer: Brandon Anaya MDHematocrit (Bld) [Volume fraction]40.5 %Normal 36.3-47.1MHassler Health FarmComment on above:Performed By: #### CDP, CP, LIP, TROPI, LIPRF, GLYHGB #### [facility] [address] [place] [address] Commercial Loan Officer: Brandon Anaya MDHemoglobin (Bld) [Mass/Vol]12.7 g/dLNormal 11.9-15.1Mmercy health allen hospitaly [facility] Medical CenterComment on above:Performed By: #### CDP, CP, LIP, TROPI, LIPRF, GLYHGB #### [facility] [address] [place] [address] Commercial Loan Officer: Brandon Anaya MDImmature granulocytes (Bld) [#/Vol]1 %Hjko0ShmqcGrant HospitalComment on above:Performed By: #### CDP, CP, LIP, TROPI, LIPRF, GLYHGB #### [facility] [employer] [address] [place] [address] 9[address]76 Commercial Loan Officer: Brandon Anaya MDLymphocytes (Bld) [#/Vol]1.50 10*3/uLNormal 1.10-3.70Grant HospitalComment on above:Performed By: #### CDP, CP, LIP, TROPI, LIPRF, GLYHGB #### [facility] [employer] [address] [place] [address] 9[address]71 Commercial Loan Officer: Kortney Mcmanusmphocytes/100 WBC (Bld)12 %Fdv11-20PxerlGrant HospitalComment on above:Performed By: #### CDP, CP, LIP, TROPI, LIPRF, GLYHGB #### [facility] [employer] [address] [place] [address]55 Commercial Loan Officer: LIZZY McmanusCH (RBC) [Entitic mass]29.4 ksLwrcyf23.2-33.5 [facility] HospitalComment on above:Performed By: #### CDP, CP, LIP, TROPI, LIPRF, GLYHGB #### [facility] [employer] [address] [place] [address] 47829 Commercial Loan Officer: LIZZY McmanusCHC (RBC) [Mass/Vol]31.4 g/uIIrnooe74.4-34.8 [facility] HospitalComment on above:Performed By: #### CDP, CP, LIP, TROPI, LIPRF, GLYHGB #### [address] [address] Commercial Loan Officer: LIZZY McmanusCV (RBC) [Entitic vol]93.8 kHBsckik84.6-102.9 [facility] HospitalComment on above:Performed By: #### CDP, CP, LIP, TROPI, LIPRF, GLYHGB #### [place] [address] Commercial Loan Officer: LIZZY Mcmanusonocytes (Bld) [#/Vol]0.87 10*3/uLNormal 0.10-1.20[facility] HospitalComment on above:Performed By: #### CDP, CP, LIP, TROPI, LIPRF, GLYHGB #### [place] [address] Commercial Loan Officer: LIZZY Mcmanusonocytes/100 WBC (Bld)7 %Normal3-12Grant HospitalComment on above:Performed By: #### CDP, CP, LIP, TROPI, LIPRF, GLYHGB #### [facility] [employer] [address] [place] [address] Commercial Loan Officer: Brandon Anaya MDNeutrophil (Seg)79 %Jump97-14CqqclGrant HospitalComment on above:Performed By: #### CDP, CP, LIP, TROPI, LIPRF, GLYHGB #### [facility] [employer] [address] [place] [address] Commercial Loan Officer: Brandon Anaya MDNRBC Automated0.0 per 100 WBCNormal0.0Grant HospitalComment on above:Performed By: #### CDP, CP, LIP, TROPI, LIPRF, GLYHGB #### [facility] [employer] [address] [place] [address] 19592 Commercial Loan Officer: Nadeem Mcmanus mean volume (Bld) [Entitic vol]10.7 fL Normal8.1-13.5Grant HospitalComment on above:Performed By: #### CDP, CP, LIP, TROPI, LIPRF, GLYHGB #### [address] [address] Commercial Loan Officer: Bon Mcmanus (Bld) [#/Vol]196 10*3/lTNqxsve607-531 [facility] HospitalComment on above:Performed By: #### CDP, CP, LIP, TROPI, LIPRF, GLYHGB #### [address] [address] Commercial Loan Officer: RICHA Mcmanus (Bld) [#/Vol]4.32 10*6/uLNormal3.95-5.11 [facility] HospitalComment on above:Performed By: #### CDP, CP, LIP, TROPI, LIPRF, GLYHGB #### [address] [address] Commercial Loan Officer: RICHA Mcmanus morphology finding Nom (Bld)ANISOCYTOSIS PRESENTNormalGrant HospitalComment on above:Performed By: #### CDP, CP, LIP, TROPI, LIPRF, GLYHGB #### [address] [address] Commercial Loan Officer: LUCIAN Mcmanus (Bld) [#/Vol]12.2 10*3/uLHigh3.5-11.3MHassler Health FarmComment on above:Performed By: #### CDP, CP, LIP, TROPI, LIPRF, GLYHGB #### [facility] [place] [address] Commercial Loan Officer: Gustabo Mcmanus PerformedNOT REPORTEDOhioHealth Hardin Memorial HospitalComment on above:Performed By: #### CDP, CP, LIP, TROPI, LIPRF, GLYHGB #### [facility] [address] [place] [address] [phone] Commercial Loan Officer: Bon Mcmanus (Chadwickd) [#/Vol]NOT REPORTEDNormFostoria City HospitalComment on above:Performed By: #### CDP, CP, LIP, TROPI, LIPRF, GLYHGB #### [facility] [address] [place] [phone] Commercial Loan Officer: LUCIAN Mcmanus MorphologyNOT REPORTEDOhioHealth Hardin Memorial HospitalComment on above:Performed By: #### CDP, CP, LIP, TROPI, LIPRF, GLYHGB #### [facility] [employer] [address] [place] [address] Commercial Loan Officer: Yane Mcmanusgnesiumon 16-15-1881Geoqrrhtq [Mass/Vol]2.2 mg/dLNormal1.6-2.6[facility] Regional Medical CenterComment on above:Performed By: #### CDP, CP, LIP, TROPI, LIPRF, GLYHGB #### [employer] [address] [place] [address] Commercial Loan Officer: Yane Mcmanusgnesium [Mass/Vol]2.2 mg/dL1.6 - 2.6 mg/dL [facility], KYPOC Glucose Fingerstickon 46-97-6749Cqfcxzb [Mass/Vol]117 mg/hIYpnm90 - 105 mg/dLMercy Health Clermont Hospital, KYInterpretation and review of laboratory resultsAbnormTriHealth McCullough-[facility], KYGlucose [Mass/Vol]115 mg/dJZzxb97 - 105 mg/dLMercy Health Cl[facility], KYInterpretation and review of laboratory results AbnormalMercy Health- [place], KYGlucose [Mass/Vol]123 mg/gGXzzk57 - 105 mg/dLMercy Health- [place], KYInterpretation and review of laboratory resultsAbnormalMercy Health- [place], KYGlucose [Mass/Vol]117 mg/hJFezl40 - 105 mg/dLMercy Health- [place], [place] Interpretation and review of laboratory resultsAbnormalMercy Health- [place], [place] URINALYSIS WITH MICROSCOPICon 37-62-7061Gpxlsvbrq, UANOT REPORTEDNoneMercy Health- [place], KYBacteria, UANOT REPORTEDNoneMercy Health- [place], KYBilirubin Urine NegativeNEGATIVEMercy Health- [place], KYCasts UA0 TO 2 HYALINE Reference range defined for non-centrifuged specimen.[facility] [place], KYColor, UAYELLOWYELLOW [facility]- [place], KYCrystals, UANOT REPORTEDNone /HPFMercy Health- [place], [place] Epithelial Cells UA2 TO 5[facility] [place], KYGlucose, UrNegativeNEGATIVEMercy Health- [place], KYInterpretation and review of laboratory resultsAbnormalMercy Health- [place], KYKetones Ql (U)SMALLAbnormalNEGATIVEMercy Health- [place], KYLeukocyte esterase Test strip Ql (U)NegativeNEGATIVEMercy Health- [place], KYMucus, UANOT REPORTEDNoneMercy Health- [place], KYNitrite, UrineNegativeNEGATIVEMercy Health- [place], KYOther Observations UANOT REPORTEDNOT REQ.[facility] [place], KYpH, UA8.5High [facility]- [place], KYProtein (U) [Mass/Vol]NegativeNEGATIVEMercy Health- [place], [place] RBC (U) [#/Vol]TOO NUMEROUS TO COUNTMercy Health- [place], KYComment on above: Reference range defined for non-centrifuged specimen.Renal Epithelial, UANOT REPORTED0 /HPFMercy Health- [place], KYSpecific [place], UA1.011[facility]- [place], [place] Trichomonas, UANOT REPORTEDNoneMercy Health- [place], KYTurbidity UATURBIDAbnormal CLEARMercy Health- [place], KYUrine HgbNegativeNEGATIVEMercy Health- [place], [place] Urobilinogen, UrineNormalNormalMercy Health- [place], KYWBC, UA0 TO 2MClermont County Hospital, KYYeast, UANOT REPORTEDNoneMeRiverside Methodist Hospital, [place]-[facility], [place] Urinalysis w/ Microon 10-12-2019-----[facility] Comment on above:Performed By: #### CDP, CP, LIP, TROPI, LIPRF, GLYHGB #### [facility] [employer] [address] [place] [address] Commercial Loan Officer: Brandon Anaya MDAcetoacetic Acid,UrSMALLAbnormalHolzer Health SystemComment on above:Performed By: #### CDP, CP, LIP, TROPI, LIPRF, GLYHGB #### [facility] [employer] [address] [place] [address] Commercial Loan Officer: Brandon Anaya MDBilirubin, SemiQt,UrNegativeCincinnati VA Medical CenterComment on above:Performed By: #### CDP, CP, LIP, TROPI, LIPRF, GLYHGB #### [facility] [employer] [address] [place] [address] Commercial Loan Officer: NEHAL Mcmanusasts LM.LPF (Urine sed) [#/Area]0 TO 2 HYALINE Normal0-8[facility] HospitalComment on above:Result Comment: Reference range defined for non-centrifuged specimen.Performed By: #### CDP, CP, LIP, TROPI, LIPRF, GLYHGB #### [facility] [employer] [address] [place] [address] 0[address]66 Commercial Loan Officer: NEHAL Mcmanusolor (U)YELLOWNormalYELMerEl Camino HospitalComment on above:Performed By: #### CDP, CP, LIP, TROPI, LIPRF, GLYHGB #### [facility] [employer] [address] [place] [phone] Commercial Loan Officer: Brandon Anaya MDEpithelial cells LM.HPF (Urine sed) [#/Area]2 TO 2Orehtg1-2VpirmGrant HospitalComment on above:Performed By: #### CDP, CP, LIP, TROPI, LIPRF, GLYHGB #### [facility] [address] [place] [address] 20863 Commercial Loan Officer: Brandon Anaya MDGlucose Ql (U)NegativeNormalNEGGrant HospitalComment on above:Performed By: #### CDP, CP, LIP, TROPI, LIPRF, GLYHGB #### [facility] [address] [place] [address] 0[address]98 Commercial Loan Officer: Brandon Anaya MDHemoglobin, UrNegativeCincinnati VA Medical CenterComment on above:Performed By: #### CDP, CP, LIP, TROPI, LIPRF, GLYHGB #### [facility] [address] [place] [address] Commercial Loan Officer: Brandon Anaya MDLeukocyte esterase Test strip Ql (U)Negative NormalNEGGrant HospitalComment on above:Performed By: #### CDP, CP, LIP, TROPI, LIPRF, GLYHGB #### [facility] [address] [place] [address] Commercial Loan Officer: Brandon Anaya MDNitrite,UrNegativeCincinnati VA Medical CenterComment on above:Performed By: #### CDP, CP, LIP, TROPI, LIPRF, GLYHGB #### [facility] [address] [place] [address] Commercial Loan Officer: Bladimir Mcmanus (U)8.5 [pH]High5.0-8.0Grant HospitalComment on above:Performed By: #### CDP, CP, LIP, TROPI, LIPRF, GLYHGB #### [facility] [address] [place] [address] Commercial Loan Officer: BLADIMIR Mcmanusrotein Ql (U)NegativeNormalNEGGrant HospitalComment on above:Performed By: #### CDP, CP, LIP, TROPI, LIPRF, GLYHGB #### [facility] [address] [place] [phone] Commercial Loan Officer: DREW McmanusBC (U) [#/Vol]TOO NUMEROUS TO COUNTNormal0-4 [facility] HospitalComment on above:Result Comment: Reference range defined for non-centrifuged specimen.Performed By: #### CDP, CP, LIP, TROPI, LIPRF, GLYHGB #### [facility] [address] [place] [address] Commercial Loan Officer: FABIANA Mcmanuspecific gravity (U) [Rel density]1.011Normal 1.005-1.030[facility] HospitalComment on above:Performed By: #### CDP, CP, LIP, TROPI, LIPRF, GLYHGB #### [facility] [employer] [address] [place] [address] Commercial Loan Officer: Gwendolyn McmanusidityTURBIDAbnormalCLEARMHassler Health FarmComment on above:Performed By: #### CDP, CP, LIP, TROPI, LIPRF, GLYHGB #### [employer] [address] [place] [address] Commercial Loan Officer: Jackie McmanusUrNormalNormalNORMGrant HospitalComment on above:Performed By: #### CDP, CP, LIP, TROPI, LIPRF, GLYHGB #### [facility] [employer] [address] [place] [address] Commercial Loan Officer: Brandon Anaya MDWBC (U) [#/Vol]0 TO 6Vtfsta3-6YxjwlGrant HospitalComment on above:Performed By: #### CDP, CP, LIP, TROPI, LIPRF, GLYHGB #### [facility] [employer] [address] [place] [address] Commercial Loan Officer: Hanh Mcmanusrpliz sediment LM Ql (Urine sed)NOT REPORTED NormalCleveland Clinic Children's Hospital for RehabilitationComment on above:Performed By: #### CDP, CP, LIP, TROPI, LIPRF, GLYHGB #### [facility] [address] [place] [phone] Commercial Loan Officer: Rita Mcmanus LM.HPF (Urine sed) [#/Area]NOT REPORTED NormalCleveland Clinic Children's Hospital for RehabilitationComment on above:Performed By: #### CDP, CP, LIP, TROPI, LIPRF, GLYHGB #### [facility] [address] [place] [address] Commercial Loan Officer: Andrew Mcmanus LM Nom (Urine sed)NOT REPORTEDNormal NONEMerEl Camino HospitalComment on above:Performed By: #### CDP, CP, LIP, TROPI, LIPRF, GLYHGB #### [facility] [address] [place] [address] Commercial Loan Officer: Brandon Anaya MDEpithelial, RenalNOT VRIISEWAQzuvcu9XyecvGrant HospitalComment on above:Performed By: #### CDP, CP, LIP, TROPI, LIPRF, GLYHGB #### [facility] [address] [place] [address] Commercial Loan Officer: Yulia Mcmanus StrandsNOT REPORTEDNormalNONEMey Sonora Regional Medical CenterComment on above:Performed By: #### CDP, CP, LIP, TROPI, LIPRF, GLYHGB #### [facility] [address] [place] [address] Commercial Loan Officer: Montana Mcmanus ObservationsNOT REPORTEDNormalNREQGrant HospitalComment on above:Performed By: #### CDP, CP, LIP, TROPI, LIPRF, GLYHGB #### [facility] [address] [place] [address] [phone] Commercial Loan Officer: Dago McmanusNOT REPORTEDNormalNONEMeMercy General HospitalComment on above:Performed By: #### CDP, CP, LIP, TROPI, LIPRF, GLYHGB #### [facility] [facility] [address] [place], [place] [phone] Commercial Loan Officer: Donna Mcmanus LM Ql (Urine sed)NOT REPORTEDNormalNONE Grant HospitalComment on above:Performed By: #### CDP, CP, LIP, TROPI, LIPRF, GLYHGB #### [facility] [facility] [address] [place] [address] Commercial Loan Officer: CHRISTINE Mcmanus RENAL ARTERIAL DUPLEX COMPLETEon 10-12-2019 [facility] Vascular Renal Procedure Patient Name ALEX Date of Study 10/12/2019 SHAYY Date of 1945 Gender Female Age 74 year(s) Race Room Number 2015 Corporate ID [id number] # Patient Acct [id number] # MR # [id number] Claim Adjuster Celena Juarez RVT, RDMS Interpreting Jamison Galo Physician Referring Referring Physician MD CHRISTOPHER Nurse Practitioner Procedure Type of Study: Abdominal: Renal, Renal Artery Scan Bilateral. Patient Status:In Patient. Conclusions Summary Abdominal aortic aneurysm measuring 3.5 cm was noted. 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 Signature Findings: Right Impression: Left Impression: Renal / Aortic Ratio abnormal Renal / Aortic Ratio within (>3.5cm/s). normal limits (<3.5cm/s). Calcificationand elevated velocities Good color flow renal parenchyma. origin of right renal artery. Kidney length is normal. Good color flow renal parenchyma. Renal vein appears patent. Kidney length is normal. Renal vein appears patent. Risk Factors History + +----+--------+ !Diagnosis !Date!Comments! + +----+--------+ !Peripheral vascular disease->Aortic aneurysm ! !3.5 cm ! + +----+--------+ - The patient's risk factor(s) include: dyslipidemia and arterial hypertension. Velocities are measured in cm/s ; Diameters are measured in cm Abdominal Aortic Flow + +----+---+ + ------+ !Location !PSV !EDV!AP Diam !Trans Diam ! + +----+---+ + + !Aorta Supra Renal !68.8! ! ! ! + +----+-- -+ + + Renal Duplex Measurements + ++-----+----+----+----++---+----+----+----+ !Renal Artery A !!Right! !Left! !! ! ! ! ! + ++-----+----+----+----++---+----+----+----+ !Location !!PSV !EDV !RI !RAR !!PSV!EDV !RI !RAR ! + ++-----+----+----+----++---+----+----+----+ !Ostial Renal !!332 !58.5!0.82!4.83!!199!39.3!0.8 !2.89! + ++-----+----+----+----++---+----+----+----+ !Prox Renal !!200 !23.1!0.88!2.91!!173!35.6!0.79!2.51! + ---------++-----+----+----+----++---+----+----+----+ !Mid Renal !!179 !35.1!0.8 !2.6 !!166!30.7!0.82!2.41! + ++-----+----+----+----++---+----+----+----+ !Dist Renal !!116 !22.4!0.81!1.69!!111!24.6!0.78!1.61! + ++-----+----+----+----++---+----+----+----+ Right Miscellaneous Measurements - The average kidney length is 10.75 cm. Left Miscellaneous Measurements - The average kidney length is 10.75 cm.[facility]- Radha LINK Mhpn Incoming Cardio Results From Cpacs/Ge - 10/12/2019 7:54 PM EDT [facility] Vascular Renal Procedure Patient Name ALEX Date of Study 10/12/2019 SHAYY Date of 1945 Gender Female Age 74 year(s) Race Room Number 2015 Corporate ID [id number] # Patient Acct [id number] # MR # [id number] Claim Adjuster Celena Juarez RVT, RDMS Interpreting Jamison Galo [...] vein appears patent. Risk Factors History + +----+-------- + !Diagnosis !Date!Comments! + +----+-------- + !Peripheral vascular disease->Aortic aneurysm ! !3.5 cm ! + +----+-------- + - The patient's risk factor(s) include: dyslipidemia and arterial hypertension. Velocities are measured in cm/s ; Diameters are measured in cm Abdominal Aortic Flow + +----+---+ + + !Location !PSV !EDV!AP Diam !Trans Diam ! + +----+---+ + + !Aorta Supra Renal !68.8! ! ! ! + +----+---+ + + Renal Duplex Measurements + ++-----+----+----+----++---+----+----+---- + !Renal Artery A !!Right! !Left! !! ! ! ! ! + ++-----+----+----+----++---+----+----+---- + !Location !!PSV !EDV !RI !RAR !!PSV!EDV !RI !RAR ! + ++-----+----+----+----++---+----+----+---- + !Ostial Renal !!332 !58.5!0.82!4.83!!199!39.3!0.8 !2.89! + ++-----+----+----+----++---+----+----+---- + !Prox Renal !!200 !23.1!0.88!2.91!!173!35.6!0.79!2.51! + ++-----+----+----+----++---+----+----+---- + !Mid Renal !!179 !35.1!0.8 !2.6 !!166!30.7!0.82!2.41! + ++-----+----+----+----++---+----+----+---- + !Dist Renal !!116 !22.4!0.81!1.69!!111!24.6!0.78!1.61! + ++-----+----+----+----++---+----+----+---- + Right Miscellaneous Measurements - The average kidney length is 10.75 cm. Left Miscellaneous Measurements - The average kidney length is 10.75 cm.[facility]- [place], KYXR CHEST PORTABLEon [id number] CHEST PORTABLEEXAMINATION: ONE XRAY VIEW OF THE CHEST 10/11/2019 [...] Signed by: Argentina Guzmán MD 10/11/19 Final resultNormalGrant HospitalBasic Metab w/rfx MGon 10-11-2019(cont.)NormalGrant HospitalComment on above:Result Comment: Average GFR for 70 or more years old: 75 mL/min/1.73sq m Chronic Kidney Disease: <60 mL/min/1.73sq m Kidney failure: <15 mL/min/1.73sq m eGFR calculated using average adult body mass. Additional eGFR calculator available at: http://www.CastingDB/multiple_crcl_2012.htmPerformed By: #### CDP, CP, LIP, TROPI, LIPRF, GLYHGB #### [employer] [address] [place] [address] Commercial Loan Officer: Brandon Anaya, MDAnion gap [Moles/Vol]15 mmol/LNormal9-17Grant HospitalComment on above:Performed By: #### CDP, CP, LIP, TROPI, LIPRF, GLYHGB #### [employer] [address] [place] [address] Commercial Loan Officer: Brandon Anaya MDCalcium [Mass/Vol]9.2 mg/dLNormal8.6-10.4Grant HospitalComment on above:Performed By: #### CDP, CP, LIP, TROPI, LIPRF, GLYHGB #### [employer] [address] [place] [address] Commercial Loan Officer: Brandon Anaya MDChloride [Moles/Vol]96 mmol/ATat46-779RcdleGrant HospitalComment on above:Performed By: #### CDP, CP, LIP, TROPI, LIPRF, GLYHGB #### [address] [address] Commercial Loan Officer: Brandon Anaya MDCO2 [Moles/Vol]24 mmol/FAnjghf07-39OremqGrant HospitalComment on above:Performed By: #### CDP, CP, LIP, TROPI, LIPRF, GLYHGB #### [address] [address] Commercial Loan Officer: NEHAL Mcmanusreatinine [Mass/Vol]0.55 mg/dLNormal0.50-0.90 Grant HospitalComment on above:Performed By: #### CDP, CP, LIP, TROPI, LIPRF, GLYHGB #### [place] [address] Commercial Loan Officer: Brandon Anaya MDGFR, Amer>60Normal>60Grant HospitalComment on above:Performed By: #### CDP, CP, LIP, TROPI, LIPRF, GLYHGB #### [place] [address] Commercial Loan Officer: Brandon Anaya MDGFR,non Amer>60Normal>60Grant HospitalComment on above:Performed By: #### CDP, CP, LIP, TROPI, LIPRF, GLYHGB #### [place] [address] Commercial Loan Officer: Brandon Anaya MDGlucose [Mass/Vol]146 mg/jKTudt53-29Zunvr [facility] Regional Medical CenterComment on above:Performed By: #### CDP, CP, LIP, TROPI, LIPRF, GLYHGB #### [address] [address] Commercial Loan Officer: Brandon Anaya MDPotassium [Moles/Vol]3.6 mmol/LLow3.7-5.3MHassler Health FarmComment on above:Performed By: #### CDP, CP, LIP, TROPI, LIPRF, GLYHGB #### [facility] [address] [place] [address] Commercial Loan Officer: FABIANA Mcmanusodium [Moles/Vol]135 mmol/AAofokr129-294SbrxhGrant HospitalComment on above:Performed By: #### CDP, CP, LIP, TROPI, LIPRF, GLYHGB #### [facility] [address] [place] [address] Commercial Loan Officer: Brandon Anaya MDUrea nitrogen [Mass/Vol]13 mg/dLNormal8-23Grant HospitalComment on above:Performed By: #### CDP, CP, LIP, TROPI, LIPRF, GLYHGB #### [facility] [address] [place] [address] Commercial Loan Officer: RADHA Mcmanus/CRE RatioNOT REPORTEDNormal9-20Grant HospitalComment on above:Performed By: #### CDP, CP, LIP, TROPI, LIPRF, GLYHGB #### [facility] [address] [place] [address] Commercial Loan Officer: FABIANA Mcmanustaging:NOT REPORTEDNormalGrant HospitalComment on above:Performed By: #### CDP, CP, LIP, TROPI, LIPRF, GLYHGB #### [facility] [address] [place] [address] Commercial Loan Officer: Josh Mcmanus Metabolic Panel w/ Reflex to MGon [id number] gap [Moles/Vol]15 mmol/L9 - 17 mmol/LMercy Health- [place], KYBun/Cre RatioNOT REPORTEDPromedica [facility]- [place], KYCalcium [Mass/Vol]9.2 mg/dL8.6 - 10.4 mg/dLMercy Health- [place], KYChloride [Moles/Vol]96 mmol/LLow98 - 107 mmol/LMercy Health- [place], KYCO2 [Moles/Vol]24 mmol/L20 - 31 mmol/LMCleveland Clinic- [place], [place] Creatinine [Mass/Vol]0.55 mg/dL0.5 - 0.9 mg/dLMercy Health [facility], KYGFR >60>60 mL/minRegency Hospital Company [place], KYGFR Non->60>60 mL/min [facility], KYGFR/1.73 sq M predicted among non-blacks MDRD (S/P/Bld) [Vol rate/Area]NOT REPORTEDMercy Health [facility] Hospital, KYGFR/1.73 sq M predicted among non- blacks MDRD (S/P/Bld) [Vol rate/Area][facility], KYComment on above: Average GFR for 70 or more years old: 75 mL/min/1.73sq m Chronic Kidney Disease: <60 mL/min/1.73sq m Kidney failure: <15 mL/min/1.73sq m eGFR calculated using average adult body mass. Additional eGFR calculator available at: http://www.CastingDB/multiple_crcl_2012.htm Glucose [Mass/Vol]146 mg/tOIyvo94 - 99 mg/dLMercy Health Cl[facility], KYInterpretation and review of laboratory resultsAbnormalMercy Health [facility], KYPotassium [Moles/Vol]3.6 mmol/LLow3.7 - 5.3 mmol/[facility], KYSodium [Moles/Vol] 135 mmol/L135 - 144 mmol/[facility] [place], KYUrea nitrogen [Mass/Vol]13 mg/dL8 - 23 mg/dLMercy Health Cl[facility] Hospital, KYCBC auto differentialon [id number] (Bld) [#/Vol]0.03 10*3/[facility] [place], KYBasophils/100 WBC (Bld)0 %0 - 2 %[facility], KYDifferential TypeNOT REPORTEDMercy Health [facility], KYEosinophils (Bld) [#/Vol]10*3/uLRegency Hospital Company [place], KYEosinophils/100 WBC (Bld)0 %Low1 - 4 %[facility]- [place], KYErythrocyte distribution width (RBC) [Ratio]14.3 %11.8 - 14.4 % [facility]- [place], KYHematocrit (Bld) [Volume fraction]43.6 %36.3 - 47.1 %[facility]- [place], KYHemoglobin (Bld) [Mass/Vol]13.7 g/dL11.9 - 15.1 g/dLPremier Health Miami Valley Hospital- [place], KYImmature granulocytes (Bld) [#/Vol]1 %Ggwf4DuconPremier Health [facility] Hospital- [place], KYImmature granulocytes (Bld) [#/Vol]0.07 10*3/uLPremier Health Miami Valley Hospital- [place], KYInterpretation and review of laboratory resultsAbnormalPrem[facility] Health [facility]- [place], KYLymphocytes (Bld) [#/Vol]0.92 10*3/uLLowPremier Health [facility] Hospital- [place], KYLymphocytes/100 WBC (Bld)14 %Low24 - 43 %[facility], KYMCH (RBC) [Entitic mass]29.1 pg25.2 - 33.5 pgRegency Hospital Company [place], KYMCHC (RBC) [Mass/Vol]31.4 g/dL28.4 - 34.8 g/dLRegency Hospital Company [place], [place] MCV (RBC) [Entitic vol]92.6 fL82.6 - 102.9 fLRegency Hospital Company [place], KYMonocytes (Bld) [#/Vol]0.07 10*3/uLLowPremier Health [facility]- [place], KYMonocytes/100 WBC (Bld)1 %Low3 - 12 % [facility] [place], KYPlatelet mean volume (Bld) [Entitic vol]10.6 fL8.1 - 13.5 fL [facility]- [place], KYPlatelets (Bld) [#/Vol]NOT REPORTEDPrem[facility] Health [facility]- [place], [place] Platelets (Bld) [#/Vol]196 10*3/uLPremier Health Miami Valley Hospital- [place], KYRBC (Bld) [#/Vol]4.71 10*6/uL3.95 - 5.11 m/uLPremier Health Miami Valley Hospital- [place], KYRBC morphology finding Nom (Bld)NOT REPORTEDRegency Hospital Company [place], KYSegmented neutrophils/100 WBC (Bld)84 %High36 - 65 % [place], KYSegs Absolute5.67[facility] (Bld) [#/Vol]0.0 10*3/uL0.0 per 100 WBCACMC Healthcare System Glenbeigh (Bld) [#/Vol]6.8 10*3/uLFayette County Memorial HospitalBC MorphologyNOT REPORTEDLe[place], KYCB with Diffon [id number]. Basophil0.03 k/uLNormal0.00-0.20[facility] Comment on above:Performed By: #### CDP, CP, LIP, TROPI, LIPRF, GLYHGB #### [facility] [employer] [address] [place] [address] Commercial Loan Officer: Marie Mcmanus.Imm.Granulocyte0.07 k/uLNormal0.00-0.30Grant HospitalComment on above:Performed By: #### CDP, CP, LIP, TROPI, LIPRF, GLYHGB #### [facility] Hospital[facility] [address] [place] [address] Commercial Loan Officer: Marie Mcmanus.Neutrophil (Seg)5.67 k/uLNormal1.50-8.10 Grant HospitalComment on above:Performed By: #### CDP, CP, LIP, TROPI, LIPRF, GLYHGB #### [facility] [employer] [address] [place] [address] Commercial Loan Officer: Brandon Anaya MDBasophils/100 WBC (Bld)0 %Normal0-2MHassler Health FarmComment on above:Performed By: #### CDP, CP, LIP, TROPI, LIPRF, GLYHGB #### [facility] [employer] [address] [place] [address] Commercial Loan Officer: Brandon Anaya MDEosinophils (Bld) [#/Vol]10*3/uLNormal0.00-0.44 Grant HospitalComment on above:Performed By: #### CDP, CP, LIP, TROPI, LIPRF, GLYHGB #### [place] [address] Commercial Loan Officer: Brandon Anaya MDEosinophils/100 WBC (Bld)0 %Low1-4Grant HospitalComment on above:Performed By: #### CDP, CP, LIP, TROPI, LIPRF, GLYHGB #### [place] [address] Commercial Loan Officer: Brandon Anaya MDErythrocyte distribution width (RBC) [Ratio]14.3 %Gjhjkc20.8-14.4Grant HospitalComment on above:Performed By: #### CDP, CP, LIP, TROPI, LIPRF, GLYHGB #### [place] [address] Commercial Loan Officer: Brandon Anaya MDHematocrit (Bld) [Volume fraction]43.6 %Normal 36.3-47.1MHassler Health FarmComment on above:Performed By: #### CDP, CP, LIP, TROPI, LIPRF, GLYHGB #### [place] [address] Commercial Loan Officer: Brandon Anaya MDHemoglobin (Bld) [Mass/Vol]13.7 g/dLNormal 11.9-15.1MHassler Health FarmComment on above:Performed By: #### CDP, CP, LIP, TROPI, LIPRF, GLYHGB #### [facility] [employer] [address] [place] [address] Commercial Loan Officer: Brandon Anaya MDImmature granulocytes (Bld) [#/Vol]1 %Dslo7EkrevGrant HospitalComment on above:Performed By: #### CDP, CP, LIP, TROPI, LIPRF, GLYHGB #### [facility] [employer] [address] [place] [address] Commercial Loan Officer: Kortney Mcmanusmphocytes (Bld) [#/Vol]0.92 10*3/uLLow 1.10-3.70Grant HospitalComment on above:Performed By: #### CDP, CP, LIP, TROPI, LIPRF, GLYHGB #### [facility] [employer] [address] [place] [address] Commercial Loan Officer: Luiza Mcmanushocytes/100 WBC (Bld)14 %Iyo49-30KrtwjGrant HospitalComment on above:Performed By: #### CDP, CP, LIP, TROPI, LIPRF, GLYHGB #### [facility] [employer] [address] [place] [address] Commercial Loan Officer: LIZZY McmanusCH (RBC) [Entitic mass]29.1 zzQtgvxi70.2-33.5 Grant HospitalComment on above:Performed By: #### CDP, CP, LIP, TROPI, LIPRF, GLYHGB #### [facility] [employer] [address] [place] [address] Commercial Loan Officer: STEFFANIE McmanusC (RBC) [Mass/Vol]31.4 g/uAIknlrr68.4-34.8 Grant HospitalComment on above:Performed By: #### CDP, CP, LIP, TROPI, LIPRF, GLYHGB #### [facility] [employer] [address] [place] [address] Commercial Loan Officer: LIZZY McmanusCV (RBC) [Entitic vol]92.6 bVRbnobt08.6-102.9 Grant HospitalComment on above:Performed By: #### CDP, CP, LIP, TROPI, LIPRF, GLYHGB #### [facility] [employer] [address] [place] [address] Commercial Loan Officer: LIZZY Mcmanusonocytes (Bld) [#/Vol]0.07 10*3/uLLow0.10-1.20 Grant HospitalComment on above:Performed By: #### CDP, CP, LIP, TROPI, LIPRF, GLYHGB #### [address] [address] Commercial Loan Officer: LIZZY Mcmanusonocytes/100 WBC (Bld)1 %Low3-12Grant HospitalComment on above:Performed By: #### CDP, CP, LIP, TROPI, LIPRF, GLYHGB #### [place] [address] Commercial Loan Officer: Modesta Mcmanusophil (Seg)84 %Scmv99-48QkyimGrant HospitalComment on above:Performed By: #### CDP, CP, LIP, TROPI, LIPRF, GLYHGB #### [place] [address] Commercial Loan Officer: Brandon Anaya MDNRBC Automated0.0 per 100 WBCNormal0.0Grant HospitalComment on above:Performed By: #### CDP, CP, LIP, TROPI, LIPRF, GLYHGB #### [address] [address] Commercial Loan Officer: Nadeem Mcmanus mean volume (Bld) [Entitic vol]10.6 fL Normal8.1-13.5Grant HospitalComment on above:Performed By: #### CDP, CP, LIP, TROPI, LIPRF, GLYHGB #### [address] [address] Commercial Loan Officer: Geremias Mcmanustelets (Bld) [#/Vol]196 10*3/sZAkchcz117-706 Grant HospitalComment on above:Performed By: #### CDP, CP, LIP, TROPI, LIPRF, GLYHGB #### [facility] [address] [place] [address] Commercial Loan Officer: RICHA Mcmanus (Bld) [#/Vol]4.71 10*6/uLNormal3.95-5.11 Grant HospitalComment on above:Performed By: #### CDP, CP, LIP, TROPI, LIPRF, GLYHGB #### [facility] [address] [place] [address] Commercial Loan Officer: LUCIAN Mcmanus (Bld) [#/Vol]6.8 10*3/uLNormal3.5-11.3MHassler Health FarmComment on above:Performed By: #### CDP, CP, LIP, TROPI, LIPRF, GLYHGB #### [facility] [employer] [address] [place] [address] Commercial Loan Officer: Gustabo Mcmanus Diff PerformedNOT REPORTEDNormalGrant HospitalComment on above:Performed By: #### CDP, CP, LIP, TROPI, LIPRF, GLYHGB #### [facility] [employer] [address] [place] [address] Commercial Loan Officer: BLADIMIR Mcmanuslatelets (Bld) [#/Vol]NOT REPORTEDNormalGrant HospitalComment on above:Performed By: #### CDP, CP, LIP, TROPI, LIPRF, GLYHGB #### [facility] [address] [place] [address] Commercial Loan Officer: RICHA Mcmanus morphology finding Nom (Bld)NOT REPORTED NormalGrant HospitalComment on above:Performed By: #### CDP, CP, LIP, TROPI, LIPRF, GLYHGB #### [facility] [address] [place] [address] Commercial Loan Officer: LUCIAN Mcmanus MorphologyNOT REPORTEDNoalGrant HospitalComment on above:Performed By: #### CDP, CP, LIP, TROPI, LIPRF, GLYHGB #### [employer] [facility] [id number] Commercial Loan Officer: WENDY Mcmanus BRAIN W WO CONTRASTon [id number] BRAIN W WO CONTRASTEXAMINATION: MRI OF THE BRAIN WITHOUT AND WITH [...] Signed by: Chaitanya Sawyer MD 10/11/19 Final resultNormAdena Regional Medical Center CenterEdi, [facility] Incoming Radiant Results From Trendrating/Lingts - 10/11/2019 3:07 PM EDT EXAMINATION: MRI [...] Small meningioma over the right frontal lobe. [place], [place]Volume loss with chronic white matter microvascular ischemic change. Small meningioma over the right frontal lobe.[facility], IN EXAMINATION: MRI OF THE BRAIN WITHOUT AND WITH CONTRAST 10/11/2019 1:44 pm TECHNIQUE: Multiplanar multisequence MRI of the head/brain was performed without and with the administration of intravenous contrast. COMPARISON: None. HISTORY: ORDERING SYSTEM PROVIDED HISTORY: new onset headache with associated photophobia, nausea, vomiting, dizziness TECHNOLOGIST PROVIDED HISTORY: new onset headache withassociated photophobia, nausea, vomiting, dizziness FINDINGS: INTRACRANIAL STRUCTURES/VENTRICLES: [...] regions appear unremarkable. The normal signal voids withinthe major intracranial vessels appear maintained. ORBITS: The visualized portion of the orbits demon strate no acute abnormality. SINUSES: The visualized paranasal sinuses and mastoid air cells are well aerated. BONES/SOFT TISSUES: The bone marrow signal intensity appears normal. The soft tissues demonstrate no acute abnormality. [facility], INPO Glucose Fingerstickon [id number] [Mass/Vol]121 mg/jNIocg66 - 105 mg/dLMercy Health Clermont Hospital, INInterpretation and review of laboratory resultsAbnormalPromedica [facility]- [place], CLARAGlucose [Mass/Vol]171 mg/xQXnvk93 - 105 mg/dLMercy Health [facility], INInterpretation and review of laboratory results AbnormalMercy Health [facility] Hospital, CLARAGlucose [Mass/Vol]127 mg/lESpxh05 - 105 mg/dLMercy Health [facility], INInterpretation and review of laboratory resultsAbnoKindred Hospital Lima, CLARAGlucose [Mass/Vol]145 mg/eTOxqz60 - 105 mg/dLMercy Health Cl[facility] Hospital, [place] Interpretation and review of laboratory resultsAbnoKindred Hospital Lima, CLARAXR CHEST PORTABLEon [id number]: ONE XRAY VIEW OF THE CHEST 10/11/2019 10:45 pm COMPARISON: 06/27/2017 HISTORY: ORDERINGSYSTEM PROVIDED HISTORY: evaluate TECHNOLOGIST PROVIDED HISTORY: evaluate Reason for Exam: Upright p ortable Acuity: Unknown Type of Exam: Unknown FINDINGS: Cardiomediastinal silhouette is unchanged in size. Aortic atherosclerosis. No pulmonary consolidation, pleural effusion, or pneumothorax. No acute osseous abnormality. [facility]ermont HospitalRadha Mhpn Incoming Radiant Results From Trendrating/thredUP - 10/11/2019 11:49 PM EDT EXAMINATION: ONE XRAY VIEW OF THE CHEST 10/11/2019 10:45 pm COMPARISON: 06/27/2017 HISTORY: ORDERING SYSTEM PROVIDED HISTORY: evaluate TECHNOLOGIST PROVIDED HISTORY: evaluate Reason for Exam: Upright portable Acuity: Unknown Type of Exam: Unknown FINDINGS: Cardiomediastinal silhouette is unchanged in size. Aortic atherosclerosis. No pulmonary consolidation, pleural effusion, or pneumothorax. No acute osseous abnormality. IMPRESSION: No acute cardiopulmonary abnormality. [facility] HospitalSal acute cardiopulmonary abnormality.[facility]ermont HospitalCLARA Basic Metab w/rfx MGon 10-10-2019(cont.)[facility] Comment on above:Result Comment: Average GFR for 70 or more years old: 75 mL/min/1.73sq m Chronic Kidney Disease: <60 mL/min/1.73sq m Kidney failure: <15 mL/min/1.73sq m eGFR calculated using average adult body mass. Additional eGFR calculator available at: http://www.Shipu.[employer]/multiple_crcl_2012.htmPerformed By: #### CDP, CP, LIP, TROPI, LIPRF, GLYHGB #### [facility] [employer] [address] [place] [address] Commercial Loan Officer: Brandon Anaya MDAnion gap [Moles/Vol]10 mmol/LNormal9-17Grant HospitalComment on above:Performed By: #### CDP, CP, LIP, TROPI, LIPRF, GLYHGB #### [facility] [employer] [address] [place] [address] Commercial Loan Officer: Brandon Anaya MDCalcium [Mass/Vol]9.0 mg/dLNormal8.6-10.4Grant HospitalComment on above:Performed By: #### CDP, CP, LIP, TROPI, LIPRF, GLYHGB #### [facility] [employer] [address] [place] [address] Commercial Loan Officer: Brandon Anaya MDChloride [Moles/Vol]97 mmol/AOfh19-491PqxfmGrant HospitalComment on above:Performed By: #### CDP, CP, LIP, TROPI, LIPRF, GLYHGB #### [facility] [employer] [address] [place] [address] Commercial Loan Officer: Brandon Anaya MDCO2 [Moles/Vol]25 mmol/OYxerdf46-71NrdqtGrant HospitalComment on above:Performed By: #### CDP, CP, LIP, TROPI, LIPRF, GLYHGB #### [facility] [employer] [address] [place] [address] Commercial Loan Officer: Brandon Anaya MDCreatinine [Mass/Vol]0.50 mg/dLNormal0.50-0.90 Grant HospitalComment on above:Performed By: #### CDP, CP, LIP, TROPI, LIPRF, GLYHGB #### [facility] [employer] [address] [place] [address] Commercial Loan Officer: Brandon Anaya MDGFR, Amer>60Normal>60MerEl Camino HospitalComment on above:Performed By: #### CDP, CP, LIP, TROPI, LIPRF, GLYHGB #### [facility] [address] [place] [address] Commercial Loan Officer: Brandon Anaya MDGFR,non Amer>60Normal>60MerEl Camino HospitalComment on above:Performed By: #### CDP, CP, LIP, TROPI, LIPRF, GLYHGB #### [facility] [address] [place] [address] Commercial Loan Officer: Brandon Anaya MDGlucose [Mass/Vol]123 mg/kCGtbe51-70PpzmgHassler Health FarmComment on above:Performed By: #### CDP, CP, LIP, TROPI, LIPRF, GLYHGB #### [place] [address] Commercial Loan Officer: BLADIMIR Mcmanusotassium [Moles/Vol]3.5 mmol/LLow3.7-5.3MHassler Health FarmComment on above:Performed By: #### CDP, CP, LIP, TROPI, LIPRF, GLYHGB #### [address] [address] Commercial Loan Officer: FABIANA Mcmanusodium [Moles/Vol]132 mmol/BBiq721-612TriskGrant HospitalComment on above:Performed By: #### CDP, CP, LIP, TROPI, LIPRF, GLYHGB #### [place] [address] Commercial Loan Officer: Brandon Anaya MDUrea nitrogen [Mass/Vol]14 mg/dLNormal8-23Grant HospitalComment on above:Performed By: #### CDP, CP, LIP, TROPI, LIPRF, GLYHGB #### [employer] [address] [place] [address] Commercial Loan Officer: RADHA Mcmanus/CRE RatioNOT REPORTEDNormal9-20Grant HospitalComment on above:Performed By: #### CDP, CP, LIP, TROPI, LIPRF, GLYHGB #### [employer] [address] [place] [address] Commercial Loan Officer: FABIANA Mcmanustaging:NOT REPORTEDNormalGrant HospitalComment on above:Performed By: #### CDP, CP, LIP, TROPI, LIPRF, GLYHGB #### [facility] [facility] [address] [place] [address] Commercial Loan Officer: Josh Mcmanus Metabolic Panel w/ Reflex to MGon [id number] gap [Moles/Vol]10 mmol/L9 - 17 mmol/LMClermont County Hospital, KYBun/Cre RatioNOT REPORTEDMercy Health [facility], KYCalcium [Mass/Vol]9.0 mg/dL8.6 - 10.4 mg/dLMercy Health Clermont Hospital, KYChloride [Moles/Vol]97 mmol/LLow98 - 107 mmol/[facility], KYCO2 [Moles/Vol]25 mmol/L20 - 31 mmol/[facility], [place] Creatinine [Mass/Vol]0.5 mg/dL0.5 - 0.9 mg/dLMercy Health Clerm[facility] Hospital, KYGFR >60>60 mL/minMercy Health Clermont Hospital, KYGFR Non->60>60 mL/min [facility], KYGFR/1.73 sq M predicted among non-blacks MDRD (S/P/Bld) [Vol rate/Area][facility], KYComment on above:Average GFR for 70 or more years old: 75 mL/min/1.73sq m Chronic Kidney Disease: <60 mL/min/1.73sq m Kidney failure: <15 mL/min/1.73sq m eGFR calculated using average adult body mass. Additional eGFR calculator available at: http://www.globalrph.com/multiple_crcl_2012.htm GFR/1.73 sq M predicted among non-blacks MDRD (S/P/Bld) [Vol rate/Area]NOT REPORTEDPrem[facility]- [place], KYGlucose [Mass/Vol]123 mg/fHDmmy50 - 99 mg/dLPremier Health Miami Valley Hospital- [place], KYInterpretation and review of laboratory resultsAbnormalPrem[facility] Health [facility]- [place], KYPotassium [Moles/Vol]3.5 mmol/LLow3.7 - 5.3 mmol/LMmercy health [facility]en hospitaly [facility]- [place], KYSodium [Moles/Vol]132 mmol/XCpi280 - 144 mmol/LMmercy health allen hospitaly Health- [place], KYUrea nitrogen [Mass/Vol]14 mg/dL8 - 23 mg/dLRegency Hospital Company [place], KYC-REACTIVE PROTEINon [id number] [Mass/Vol]6.3 mg/LHigh0 - 5 mg/LMmercy health allen hospitaly [facility]- [place], KYInterpretation and review of laboratory resultsAbnormalRegency Hospital Company [place], KYC-Reactive Protein on [id number] [Mass/Vol]6.3 mg/LHigh0.0-5.0[facility] Comment on above:Performed By: #### CDP, CP, LIP, TROPI, LIPRF, GLYHGB #### [employer] [address] [place] [address] Commercial Loan Officer: Brandon Anaya [facility] auto differentialon [id number] (Bld) [#/Vol]0.06 10*3/uLPremier Health Miami Valley Hospital- [place], KYBasophils/100 WBC (Bld)1 %0 - 2 % [facility] [place], KYDifferential TypeNOT REPORTEDPrem[facility] Health [facility]- [place], KYEosinophils (Bld) [#/Vol]0.07 10*3/uLPremier Health Miami Valley Hospital- [place], KYEosinophils/100 WBC (Bld)1 %1 - 4 %[facility]- [place], KYErythrocyte distribution width (RBC) [Ratio]14.5 %High11.8 - 14.4 %[facility]- [place], KYHematocrit (Bld) [Volume fraction]42.7 %36.3 - 47.1 %[facility], INHemoglobin (Bld) [Mass/Vol]13.5 g/dL11.9 - 15.1 g/dLRegency Hospital Company [place], KYImmature granulocytes (Bld) [#/Vol]0.05 10*3/[facility]- [place], KYImmature granulocytes (Bld) [#/Vol]1 %Cqqb0EseujMercy Health Cl[facility]ont Hospital, KYInterpretation and review of laboratory resultsAbnormalRegency Hospital Company [place], KYLymphocytes (Bld) [#/Vol]1.05 10*3/uLLowRegency Hospital Company [place], KYLymphocytes/100 WBC (Bld)14 %Low24 - 43 %[facility], INMCH (RBC) [Entitic mass]29.8 pg25.2 - 33.5 pgMercy Health Clermont Hospital, INMCHC (RBC) [Mass/Vol]31.6 g/dL28.4 - 34.8 g/dLMercy Health Clermont Hospital, [place] MCV (RBC) [Entitic vol]94.3 fL82.6 - 102.9 fLMercy Health Clermont Hospital, KYMonocytes (Bld) [#/Vol]0.65 10*3/[facility], KYMonocytes/100 WBC (Bld)9 %3 - 12 %[facility], CLARAPlatelet mean volume (Bld) [Entitic vol]10.9 fL8.1 - 13.5 fLMercy Health Clermont Hospital, KYPlatelets (Bld) [#/Vol]170 10*3/[facility], KYPlatelets (Bld) [#/Vol]NOT REPORTEDMercy Health [facility], INRBC (Bld) [#/Vol]4.53 10*6/uL3.95 - 5.11 m/[facility]- [place], INRBC morphology finding Nom (Bld)ANISOCYTOSIS PRESENTMercy Health Clermont Hospital, KYSegmented neutrophils/100 WBC (Bld)74 %High36 - 65 % [facility], KYSegs Absolute5.55[facility], KYWBC (Bld) [#/Vol]0.0 10*3/uL0.0 per 100 WBCACMC Healthcare System Glenbeigh (Bld) [#/Vol]7.4 10*3/uLMercy Health Clermont Hospital, [facility] MorphologyNOT REPORTEDMercy Health Cl[facility] Hospital, INCB with Diffon [id number]. Basophil0.06 k/uLNormal0.00-0.20[facility] Comment on above:Performed By: #### CDP, CP, LIP, TROPI, LIPRF, GLYHGB #### [employer] [address] [place] [address] Commercial Loan Officer: MDAbs. MariettaImm.Granulocyte0.05 k/uLNormal0.00-0.30Grant HospitalComment on above:Performed By: #### CDP, CP, LIP, TROPI, LIPRF, GLYHGB #### [facility] [employer] [address] [place] [address] Commercial Loan Officer: Marie Mcmanus.Neutrophil (Seg)5.55 k/uLNormal1.50-8.10 Grant HospitalComment on above:Performed By: #### CDP, CP, LIP, TROPI, LIPRF, GLYHGB #### [employer] [address] [place] [address] Commercial Loan Officer: Brandon Anaya MDBasophils/100 WBC (Bld)1 %Normal0-2MHassler Health FarmComment on above:Performed By: #### CDP, CP, LIP, TROPI, LIPRF, GLYHGB #### [employer] [address] [place] [address] Commercial Loan Officer: Brandon Anaya MDEosinophils (Bld) [#/Vol]0.07 10*3/uLNormal 0.00-0.44Grant HospitalComment on above:Performed By: #### CDP, CP, LIP, TROPI, LIPRF, GLYHGB #### [employer] [address] [place] [address] Commercial Loan Officer: Brandon Anaya MDEosinophils/100 WBC (Bld)1 %Normal1-4Grant HospitalComment on above:Performed By: #### CDP, CP, LIP, TROPI, LIPRF, GLYHGB #### [address] [address] Commercial Loan Officer: Brandon Anaya MDErythrocyte distribution width (RBC) [Ratio]14.5 %High11.8-14.4Grant HospitalComment on above:Performed By: #### CDP, CP, LIP, TROPI, LIPRF, GLYHGB #### [address] [address] Commercial Loan Officer: Brandon Anaya MDHematocrit (Bld) [Volume fraction]42.7 %Normal 36.3-47.1MHassler Health FarmComment on above:Performed By: #### CDP, CP, LIP, TROPI, LIPRF, GLYHGB #### [place] [address] Commercial Loan Officer: Brandon Anaya MDHemoglobin (Bld) [Mass/Vol]13.5 g/dLNormal 11.9-15.1MHassler Health FarmComment on above:Performed By: #### CDP, CP, LIP, TROPI, LIPRF, GLYHGB #### [address] [address] Commercial Loan Officer: Brandon Anaya MDImmature granulocytes (Bld) [#/Vol]1 %Uato0NkawsGrant HospitalComment on above:Performed By: #### CDP, CP, LIP, TROPI, LIPRF, GLYHGB #### [facility] [employer] [address] [place] [address] [phone] Commercial Loan Officer: Brandon Anaya MDLymphocytes (Bld) [#/Vol]1.05 10*3/uLLow 1.10-3.70Grant HospitalComment on above:Performed By: #### CDP, CP, LIP, TROPI, LIPRF, GLYHGB #### [address] [address] Commercial Loan Officer: Brandon Anaya MDLymphocytes/100 WBC (Bld)14 %Xfu69-51CgrwuGrant HospitalComment on above:Performed By: #### CDP, CP, LIP, TROPI, LIPRF, GLYHGB #### [place] [address] Commercial Loan Officer: LIZZY McmanusCH (RBC) [Entitic mass]29.8 omVindkd19.2-33.5 Grant HospitalComment on above:Performed By: #### CDP, CP, LIP, TROPI, LIPRF, GLYHGB #### [place] [address] Commercial Loan Officer: STEFFANIE McmanusC (RBC) [Mass/Vol]31.6 g/gNScbaej34.4-34.8 Grant HospitalComment on above:Performed By: #### CDP, CP, LIP, TROPI, LIPRF, GLYHGB #### [place] [address] Commercial Loan Officer: LIZZY McmanusCV (RBC) [Entitic vol]94.3 lITbxktt14.6-102.9 Grant HospitalComment on above:Performed By: #### CDP, CP, LIP, TROPI, LIPRF, GLYHGB #### [address] [address] Commercial Loan Officer: LIZZY Mcmanusonocytes (Bld) [#/Vol]0.65 10*3/uLNormal 0.10-1.20Grant HospitalComment on above:Performed By: #### CDP, CP, LIP, TROPI, LIPRF, GLYHGB #### [facility] [employer] [address] [place] [address] Commercial Loan Officer: LIZZY Mcmanusonocytes/100 WBC (Bld)9 %Normal3-12Grant HospitalComment on above:Performed By: #### CDP, CP, LIP, TROPI, LIPRF, GLYHGB #### [facility] [employer] [address] [place] [address] Commercial Loan Officer: Shakir Mcmanus (Seg)74 %Cnun61-47StafuGrant HospitalComment on above:Performed By: #### CDP, CP, LIP, TROPI, LIPRF, GLYHGB #### [address] [address] Commercial Loan Officer: Brandon Anaya MDNRBC Automated0.0 per 100 WBCNormal0.0Grant HospitalComment on above:Performed By: #### CDP, CP, LIP, TROPI, LIPRF, GLYHGB #### [facility] [employer] [address] [place] [address] Commercial Loan Officer: Nadeem Mcmanus mean volume (Bld) [Entitic vol]10.9 fL Normal8.1-13.5Grant HospitalComment on above:Performed By: #### CDP, CP, LIP, TROPI, LIPRF, GLYHGB #### [facility] [employer] [address] [place] [address] Commercial Loan Officer: Bon Mcmanus (Bld) [#/Vol]170 10*3/wKTdbwpp494-433 Grant HospitalComment on above:Performed By: #### CDP, CP, LIP, TROPI, LIPRF, GLYHGB #### [facility] [employer] [address] [place] [address] Commercial Loan Officer: RICHA Mcmanus (Bld) [#/Vol]4.53 10*6/uLNormal3.95-5.11 Grant HospitalComment on above:Performed By: #### CDP, CP, LIP, TROPI, LIPRF, GLYHGB #### [address] [address] Commercial Loan Officer: RICHA Mcmanus morphology finding Nom (Bld)ANISOCYTOSIS PRESENTOhioHealth Hardin Memorial HospitalComment on above:Performed By: #### CDP, CP, LIP, TROPI, LIPRF, GLYHGB #### [address] [address] Commercial Loan Officer: LUCIAN Mcmanus (Bld) [#/Vol]7.4 10*3/uLNormal3.5-11.3MHassler Health FarmComment on above:Performed By: #### CDP, CP, LIP, TROPI, LIPRF, GLYHGB #### [address] [address] Commercial Loan Officer: Gustabo Mcmanus Diff PerformedNOT REPORTEDNoMedina HospitalComment on above:Performed By: #### CDP, CP, LIP, TROPI, LIPRF, GLYHGB #### [address] [address] Commercial Loan Officer: Bon Mcmanus (Bld) [#/Vol]NOT REPORTEDNormalGrant HospitalComment on above:Performed By: #### CDP, CP, LIP, TROPI, LIPRF, GLYHGB #### [facility] [employer] [address] [place] [address] Commercial Loan Officer: LUCIAN Mcmanus MorphologyNOT REPORTEDOhioHealth Hardin Memorial HospitalComment on above:Performed By: #### CDP, CP, LIP, TROPI, LIPRF, GLYHGB #### [facility] [address] [place] [address] Commercial Loan Officer: Brandon Anaya, MDCT HEAD WO CONTRASTon [id number] HEAD WO CONTRASTEXAMINATION: CT OF THE HEAD WITHOUT CONTRAST 10/10/2019 [...] Signed by: Naga Browning MD 10/10/19 Final resultNormalMerEl Camino Hospital1. No acute intracranial abnormality. 2. Mild chronic white matter microvascular ischemic changes.[facility], KYEXAMINATION: CT OF THE HEAD WITHOUT CONTRAST 10/10/2019 [...] differentiation is maintained without evidence of an acuteinfarct. There is no evidence of hydrocephalus. Mild chronic white matter microvascular ischemic changes are present. ORBITS: The visualized portion of the orbits demonstrate no acute abnormality. SINUSES: The visualized paranasal sinuses and mastoid air cells demonstrate no acute abnormality. SOFTTISSUES/SKULL: No acute abnormality of the visualized skull or soft tissues.[facility] Clermont HospitalRadha Mhpn Incoming Radiant Results From Trendrating/thredUP - 10/10/2019 5:31 PM EDT EXAMINATION: CT [...] Mild chronic white matter microvascular ischemic changes. [facility], CLARACTA HEAD NECK W CONTRASTon [id number] HEAD NECK W CONTRASTEXAMINATION: CTA OF THE HEAD AND NECK WITH [...] Initial FINDINGS: CTA NECK: AORTIC ARCH/ARCH VESSELS: Mnlo-bf-htsjkxjy atherosclerotic plaque at the arch arch and [...] Signed by: Naga Browning MD 10/10/19 Final resultNormalMerEl Camino HospitalEXAMINATION: CTA OF THE HEAD AND NECK WITH [...] Initial FINDINGS: CTA NECK: AORTIC ARCH/ARCH VESSELS: Siob-go-cvqvzoej atherosclerotic plaque at the arch arch and [...] CIRCULATION: No significant stenosis of the vertebral, ba silar, or posterior cerebral arteries. No aneurysm. OTHER: No dural venous sinus thrombosis on thisnon-dedicated study. BRAIN: No mass effect or midline shift. No extra-axial fluid collection. The salmeron-white differentiation is maintained. [facility], [place]1. No acute arterial abnormality or hemodynamically significant arterial stenosis in the head or neck. 2. No intracranial aneurysm. [facility], Radha, [place] Incoming Radiant Results From Trendrating/thredUP - 10/10/2019 5:36 PM EDT EXAMINATION: CTA [...] Initial FINDINGS: CTA NECK: AORTIC ARCH/ARCH VESSELS: Quyy-eg-tulxggvj atherosclerotic plaque at the arch arch and [...] head or neck. 2. No intracranial aneurysm. [facility], INHemoglobin A1Con 03-21-1484WoT7v (Bld) [Mass fraction]111 mg/dLNormalGrant HospitalComment on above:Result Comment: The ADA and AACC recommend providing the estimated average glucose result to permit better patient understanding of their HBA1c result.Performed By: #### CDP, CP, LIP, TROPI, LIPRF, GLYHGB #### [employer] [address] [place] [address] [phone] Commercial Loan Officer: Brandon Anaya MDHbA1c (Bld) [Mass fraction]5.5 %Normal4.0-6.0 Grant HospitalComment on above:Performed By: #### CDP, CP, LIP, TROPI, LIPRF, GLYHGB #### [employer] [address] [place] [address] [phone] Commercial Loan Officer: Brandon Anaya MDGlucose [Mass/Vol]111 mg/dLMercy Health Clermont HospitalCLARA Comment on above:The ADA and AACC recommend providing the estimated average glucose result to permit better patient understanding of their HBA1c result. HbA1c (Bld) [Mass fraction]5.5 %4 - 6 %[facility], CLARALACTIC ACID, WHOLE BLOODon 64-44-5027Qhtmir Acid, Whole Blood1.0 mmol/L0.7 - 2.1 mmol/LMClermont County Hospital, CLARALactic Acid,Whole Blon 72-32-7255Iegbfm Acid,Whole Bl1.0 mmol/L Normal0.7-2.1Mer[facility] Regional Medical CenterComment on above:Performed By: #### CDP, CP, LIP, TROPI, LIPRF, GLYHGB #### [employer] [address] [place] [address] [phone] Commercial Loan Officer: Yane Mcmanusgnesiumon 21-72-7759Nwmeciskg [Mass/Vol]2.1 mg/dLNormal1.6-2.6Mer[facility] Regional Medical CenterComment on above:Performed By: #### CDP, CP, LIP, TROPI, LIPRF, GLYHGB #### [employer] [address] [place] [address] [phone] Commercial Loan Officer: Brandon Anaya MDMagnesium [Mass/Vol]2.1 mg/dL1.6 - 2.6 mg/dL [facility] HospitalCLARAOtheron . Subtle sclerosis subjacent to the L2 and L3 superior endplates is age-indeterminate and could represent trabecular condensation associated with acute or subacute endplate fractures. MRI of the lumbar spine is recommended for further evaluation. 2. No acute osseous abnormality of the sacrum or coccyx. 3. Osteopenia.[facility]ermont HospitalRadha Mhpn Incoming Radiant Results From Trendrating/thredUP - 10/10/2019 8:19 PM EDT EXAMINATION: THREE [...] of the sacrum or coccyx. 3. Osteopenia. [facility], INEXAMINATION: THREE XRAY VIEWS OF THE SACRUM/COCCYX; THREE [...] in the urinary bladder. Atherosclerotic calcifications are present.[facility], INPO Glucose Fingerstickon 78-59-9643Zzybfyc [Mass/Vol]159 mg/lIVsmg03 - 105 mg/dLMercy Health Clermont Hospital, [place] Interpretation and review of laboratory resultsAbnoKindred Hospital Lima, [place] Glucose [Mass/Vol]186 mg/yNDamz38 - 105 mg/dLMercy Health Cl[facility] Hospital, INInterpretation and review of laboratory resultsAbnoNew Orleans, KYGlucose [Mass/Vol] 135 mg/kKZbsr39 - 105 mg/dLMercy Health [facility], INInterpretation and review of laboratory resultsAbnormalMercy Health [facility], CLARAProcalcitoninon 10-10-2019 Procalcitonin0.15 ng/mLHigh<0.09Grant HospitalComment on above:Result Comment: Suspected Sepsis: <0.50 ng/mL Low likelihood [...] entered into the Change in Procalcitonin Calculator (www.pogoxl-but-mpgpsmncbc.[employer]) to determine the patient's Mortality Risk Prognosis In healthy neonates, plasma Procalcitonin (PCT) concentrations increase gradually after , reaching peak values at about 24 hours of age then decrease to normal values below 0.5 ng/mL by 48-72 hours of age.Performed By: #### CDP, CP, LIP, TROPI, LIPRF, GLYHGB #### [place] [address] Commercial Loan Officer: Brandon Anaya MDInterpretation and review of laboratory results AbnormalMercy Health [facility] Hospital, CLARAProcalcitonin0.15 ng/mLHigh<0.09[facility], [place] Comment on above: Suspected Sepsis: <0.50 ng/mL Low likelihood of sepsis. 0.50-2.00 ng/mL Increased likelihood of sepsis. Antibiotics encouraged. >2.00 ng/mL High risk of sepsis/shock. Antibiotics strongly encouraged. Suspected Lower Resp Tract Infections: <0.24 ng/mL Low likelihood of bacterial infection. >0.24 ng/mL Increased likelihood of bacterial infection. Antibiotics encouraged. With successful antibiotic therapy, PCT levels should decrease rapidly. (Half- life of 24 to 36 hours.) Procalcitonin values from samples collected within the first 6 hours of systemic infection may still be low. Retesting may be indicated. Values from day 1 and day 4 can be entered into the Change in Procalcitonin Calculator (www.rtabyt-wgi-ukxhneyyts.com) to determine the patient's Mortality Risk Prognosis In healthy neonates, plasma Procalcitonin (PCT) concentrations increase gradually after , reaching peak values at about 24 hours of age then decrease to normal values below 0.5 ng/mL by 48-72 hours of age. Sedimentation Rateon 03-17-1541Ulyaqxbeaqzcm Rate8 mmNormal0-30Grant HospitalComment on above:Performed By: #### CDP, CP, LIP, TROPI, LIPRF, GLYHGB #### [employer] [address] [place], [place] [phone] Commercial Loan Officer: FABIANA Mcmanused Rate8 mm0 - 30 mmMercy Health Clermont Hospital, [facility]ACE[facility] w/reflex to FT4on 41-93-6384WXR Qn1.05 m[IU]/LNormal0.30-5.00Grant HospitalComment on above:Performed By: #### CDP, CP, LIP, TROPI, LIPRF, GLYHGB #### [employer] [address] [place], [place] [phone] Commercial Loan Officer: LUISA Mcmanus with Reflexon 35-63-2309QDM Qn1.05 m[IU]/L [facility], KYXR LUMBAR SPINE (2-3 VIEWS)on [id number] LUMBAR SPINE (2-3 VIEWS)EXAMINATION: THREE XRAY VIEWS OF THE SACRUM/COCCYX; THREE [...] Signed by: Naga Browning MD 10/10/19 Final resultNormalGrant HospitalXR SACRUM COCCYX (MIN 2 VIEWS) on 10-82-3808AM SACRUM COCCYX (MIN 2 VIEWS)EXAMINATION: THREE XRAY VIEWS OF THE SACRUM/COCCYX; THREE [...] Signed by: Naga Browning MD 10/10/19 Final resultNormalMerEl Camino HospitalBeta Hydroxybutyrateon 65-86-7623Cues Hydroxybutyrate0.09 mmol/LNormal0.02-0.27Grant HospitalComment on above:Performed By: #### MICHAELI, #### [employer] [address] [place] [address] Commercial Loan Officer: Brandon Anaya MDBeta-Hydroxybutyrateon 10-09-2019 Beta-Hydroxybutyrate0.09 mmol/L0.02 - 0.27 mmol/LMClermont County Hospital, INCBC WITH AUTO DIFFERENTIALon 45-18-5055Hcbskxrth (Bld) [#/Vol]0.03 10*3/[facility], KYBasophils/100 WBC (Bld)0 %0 - 2 %[facility], INDifferential TypeNOT REPORTEDMercy Health Clermont Hospital, INEosinophils (Bld) [#/Vol]10*3/[facility], [place] Eosinophils/100 WBC (Bld)0 %Low1 - 4 %[facility], INErythrocyte distribution width (RBC) [Ratio]14.2 %11.8 - 14.4 %[facility], [place] Hematocrit (Bld) [Volume fraction]44.6 %36.3 - 47.1 %[facility], [place] Hemoglobin (Bld) [Mass/Vol]14.2 g/dL11.9 - 15.1 g/dLMercy Health Clermont Hospital, INImmature granulocytes (Bld) [#/Vol]1 %Ylgj8SljepMercy Health Clermont Hospital, INImmature granulocytes (Bld) [#/Vol]0.06 10*3/[facility], INInterpretation and review of laboratory resultsAbnormTriHealth McCullough-[facility], INLymphocytes (Bld) [#/Vol]0.97 10*3/uLOhioHealth Doctors Hospital, INLymphocytes/100 WBC (Bld)13 %Low24 - 43 %[facility], INMCH (RBC) [Entitic mass]29.7 pg25.2 - 33.5 pgMercy Health Clermont Hospital, [place] MCHC (RBC) [Mass/Vol]31.8 g/dL28.4 - 34.8 g/dLMercy Health Clermont Hospital, INMCV (RBC) [Entitic vol]93.3 fL82.6 - 102.9 fLMercy Health Clermont Hospital, KYMonocytes (Bld) [#/Vol] 0.52 10*3/uLMercy Health Clermont Hospital, KYMonocytes/100 WBC (Bld)7 %3 - 12 %[facility], KYPlatelet mean volume (Bld) [Entitic vol]10.9 fL8.1 - 13.5 fLMercy Health Clermont Hospital, KYPlatelets (Bld) [#/Vol]NOT REPORTEDMercy Health [facility] Hospital, KYPlatelets (Bld) [#/Vol]202 10*3/[facility], KYRBC (Bld) [#/Vol]4.78 10*6/uL3.95 - 5.11 m/uLMercy Health Clermont Hospital, KYRBC morphology finding Nom (Bld)NOT REPORTEDMercy Health Clermont Hospital, KYSegmented neutrophils/100 WBC (Bld)79 %High36 - 65 %[facility], KYSegs Absolute6.10[facility], KYWBC (Bld) [#/Vol]0.0 10*3/uL0.0 per 100 WBCMercy Health Clermont Hospital, KYWBC (Bld) [#/Vol]7.7 10*3/[facility], KYWBC MorphologyNOT REPORTEDMercy Health Clerm[facility] Hospital, KYCBC with Diffon [id number]. Basophil0.03 k/uLNormal0.00-0.20Grant HospitalComment on above:Performed By: #### CDP, CP, LIP, TROPI, LIPRF, GLYHGB #### [employer] [facility] [place], [place] [phone] Commercial Loan Officer: Marie Mcmanus.Imm.Granulocyte0.06 k/uLNormal0.00-0.30Grant HospitalComment on above:Performed By: #### CDP, CP, LIP, TROPI, LIPRF, GLYHGB #### [employer] [address] [place] [address] [phone] Commercial Loan Officer: Marie Mcmanus.Neutrophil (Seg)6.10 k/uLNormal1.50-8.10 Grant HospitalComment on above:Performed By: #### CDP, CP, LIP, TROPI, LIPRF, GLYHGB #### [place] [address] Commercial Loan Officer: Brandon Anaya MDBasophils/100 WBC (Bld)0 %Normal0-2MHassler Health FarmComment on above:Performed By: #### CDP, CP, LIP, TROPI, LIPRF, GLYHGB #### [place] [address] Commercial Loan Officer: MAU Mcmanusosinophils (Bld) [#/Vol]10*3/uLNormal0.00-0.44 Grant HospitalComment on above:Performed By: #### CDP, CP, LIP, TROPI, LIPRF, GLYHGB #### [place] [address] Commercial Loan Officer: MAU Mcmanusosinophils/100 WBC (Bld)0 %Low1-4Grant HospitalComment on above:Performed By: #### CDP, CP, LIP, TROPI, LIPRF, GLYHGB #### [place] [address] Commercial Loan Officer: Brandon Anaya MDErythrocyte distribution width (RBC) [Ratio]14.2 %Ymlnud04.8-14.4Grant HospitalComment on above:Performed By: #### CDP, CP, LIP, TROPI, LIPRF, GLYHGB #### [place] [address] Commercial Loan Officer: Brandon Anaya MDHematocrit (Bld) [Volume fraction]44.6 %Normal 36.3-47.1MHassler Health FarmComment on above:Performed By: #### CDP, CP, LIP, TROPI, LIPRF, GLYHGB #### [facility] [employer] [address] [place] [address] Commercial Loan Officer: Brandon Anaya MDHemoglobin (Bld) [Mass/Vol]14.2 g/dLNormal 11.9-15.1[facility] Medical CenterComment on above:Performed By: #### CDP, CP, LIP, TROPI, LIPRF, GLYHGB #### [address] [address] Commercial Loan Officer: Brandon Anaya MDImmature granulocytes (Bld) [#/Vol]1 %Okha7KtiqzGrant HospitalComment on above:Performed By: #### CDP, CP, LIP, TROPI, LIPRF, GLYHGB #### [address] [address] Commercial Loan Officer: Brandon Anaya MDLymphocytes (Bld) [#/Vol]0.97 10*3/uLLow 1.10-3.70Grant HospitalComment on above:Performed By: #### CDP, CP, LIP, TROPI, LIPRF, GLYHGB #### [facility] [employer] [address] [place] [address] Commercial Loan Officer: Kortney Mcmanusmphocytes/100 WBC (Bld)13 %Itz96-95CggqgGrant HospitalComment on above:Performed By: #### CDP, CP, LIP, TROPI, LIPRF, GLYHGB #### [facility] [employer] [address] [place] [phone] Commercial Loan Officer: LIZZY McmanusCH (RBC) [Entitic mass]29.7 jyEzfrgr74.2-33.5 Grant HospitalComment on above:Performed By: #### CDP, CP, LIP, TROPI, LIPRF, GLYHGB #### [facility] [address] [place] [address] Commercial Loan Officer: LIZZY McmanusCHC (RBC) [Mass/Vol]31.8 g/jUJfopau54.4-34.8 Grant HospitalComment on above:Performed By: #### CDP, CP, LIP, TROPI, LIPRF, GLYHGB #### [address] [address] Commercial Loan Officer: LIZZY McmanusCV (RBC) [Entitic vol]93.3 nECykowj80.6-102.9 Grant HospitalComment on above:Performed By: #### CDP, CP, LIP, TROPI, LIPRF, GLYHGB #### [address] [address] Commercial Loan Officer: LIZZY Mcmanusonocytes (Bld) [#/Vol]0.52 10*3/uLNormal 0.10-1.20Grant HospitalComment on above:Performed By: #### CDP, CP, LIP, TROPI, LIPRF, GLYHGB #### [address] [address] Commercial Loan Officer: LIZZY Mcmanusonocytes/100 WBC (Bld)7 %Normal3-12Grant HospitalComment on above:Performed By: #### CDP, CP, LIP, TROPI, LIPRF, GLYHGB #### [address] [address] Commercial Loan Officer: Brandon Anaya MDNeutrophil (Seg)79 %Yocq56-66NgkcvGrant HospitalComment on above:Performed By: #### CDP, CP, LIP, TROPI, LIPRF, GLYHGB #### [address] [address] Commercial Loan Officer: Brandon Anaya MDNRBC Automated0.0 per 100 WBCNormal0.0Grant HospitalComment on above:Performed By: #### CDP, CP, LIP, TROPI, LIPRF, GLYHGB #### [address] [address] Commercial Loan Officer: Nadeem Mcmanus mean volume (Bld) [Entitic vol]10.9 fL Normal8.1-13.5Grant HospitalComment on above:Performed By: #### CDP, CP, LIP, TROPI, LIPRF, GLYHGB #### [address] [address] Commercial Loan Officer: Bon Mcmanus (Bld) [#/Vol]202 10*3/rIIlsskt709-822 Grant HospitalComment on above:Performed By: #### CDP, CP, LIP, TROPI, LIPRF, GLYHGB #### [address] [address] Commercial Loan Officer: RICHA Mcmanus (Bld) [#/Vol]4.78 10*6/uLNormal3.95-5.11 Grant HospitalComment on above:Performed By: #### CDP, CP, LIP, TROPI, LIPRF, GLYHGB #### [address] [address] Commercial Loan Officer: LUCIAN Mcmanus (Bld) [#/Vol]7.7 10*3/uLNormal3.5-11.3MHassler Health FarmComment on above:Performed By: #### CDP, CP, LIP, TROPI, LIPRF, GLYHGB #### [facility] [employer] [address] [place] [phone] Commercial Loan Officer: Gustabo McmanusNOT REPORTEDSt. Louis Va Medical CenteralGrant HospitalComment on above:Performed By: #### CDP, CP, LIP, TROPI, LIPRF, GLYHGB #### [facility] [address] [place] [address] Commercial Loan Officer: BLADIMIR Mcmanuslatelets (Bld) [#/Vol]NOT REPORTEDNormFostoria City HospitalComment on above:Performed By: #### CDP, CP, LIP, TROPI, LIPRF, GLYHGB #### [facility] [place] [address] Commercial Loan Officer: RICHA Mcmanus morphology finding Nom (Bld)NOT REPORTED [facility] Memorial HospitalComment on above:Performed By: #### CDP, CP, LIP, TROPI, LIPRF, GLYHGB #### [facility] [address] [place] [address] Commercial Loan Officer: LUCIAN Mcmanus MorphologyNOT REPORTEDNoMedina HospitalComment on above:Performed By: #### CDP, CP, LIP, TROPI, LIPRF, GLYHGB #### [facility] [address] [place] [address] Commercial Loan Officer: TARUN Mcmanus-19, PCRon 35-56-9733PTZH-CoV-2MClermont County Hospital, AOXNPP-TmT-6, [facility], CUSHHA-XfG-1, RapidNot Detected Not DetectedMercy Health Clermont Hospital, [facility] on above: Rapid NAAT: The specimen is [...] management decisions. Fact sheet for Healthcare Providers: https://www.fda.gov/media/762066/download Fact sheet for Patients: https://www.fda.gov/media/763478/download Methodology: Isothermal Nucleic Acid Amplification Source.NASOPHARYNGEAL SWABMercy Health Clermont Hospital, INCT CHEST PULMONARY EMBOLISM W CONTRASTon [id number] CHEST PULMONARY EMBOLISM W CONTRASTEXAMINATION: CTA OF THE CHEST 10/09/2019 5:52 am [...] Signed by: Forrest Darby MD 10/09/19 Final resultNoMedina HospitalNo central or segmental pulmonary embolus. No acute pulmonary process. Emphysema.[facility], [place] EXAMINATION: CTA OF THE CHEST 10/09/2019 5:52 am TECHNIQUE: CTA of the chest was performed after theadministration of intravenous contrast. Multiplanar reformatted images are provided for review. MIPimages are provided for review. Dose modulation, iterative reconstruction, and/or weight based adjustment of the mA/kV was utilized to reduce the radiation dose to as low as reasonably achievable. COMPARISON: Chest radiograph June 27, 2017. HISTORY: ORDERING SYSTEM PROVIDED HISTORY: hypoxic TECHNOLOGIST PROVIDED HISTORY: hypoxic Reason for Exam: hypoxic Acuity: Acute Type of Exam: Initial FINDINGS:Chest wall: No axillary adenopathy. Upper Abdomen: No adrenal nodule. Mediastinum: Cardiomegaly. Trace pericardial fluid. No adenopathy. Atherosclerotic calcification of the thoracic aorta. PulmonaryArteries: No central or segmental pulmonary embolus. Lungs: Centrilobular emphysema. Dependent lungchanges. No pleural effusions. No focal consolidation. Bones: Thoracic spine degenerative changes.[facility] Clermont HospitalRadha Mhpn Incoming Radiant Results From Trendrating/thredUP - 10/09/2019 8:31 AM EDT EXAMINATION: CTA [...] pulmonary embolus. No acute pulmonary process. Emphysema. [facility], CL[facility]AMercy Hospital [facility] Metabolic Profon 10-09-2019(cont.)NormalGrant HospitalComment on above:Result Comment: Average GFR for 70 or more years old: 75 mL/min/1.73sq m Chronic Kidney Disease: <60 mL/min/1.73sq m Kidney failure: <15 mL/min/1.73sq m eGFR calculated using average adult body mass. Additional eGFR calculator available at: http://www.[employer].com/multiple_crcl_2012.htmPerformed By: #### CDP, CP, LIP, TROPI, LIPRF, GLYHGB #### [facility] [employer] [address] [place] [id number] Commercial Loan Officer: Brandon Anaya MDAlbumin [Mass/Vol]4.1 g/dLNormal3.5-5.2Mmercy health allen hospitaly [facility] Regional Medical CenterComment on above:Performed By: #### CDP, CP, LIP, TROPI, LIPRF, GLYHGB #### [facility] [employer] [address] [place] [address] [id number] Commercial Loan Officer: Brandon Anaya MDAlbumin/Globulin [Mass ratio]1.6 {ratio}Normal 1.0-2.5Grant HospitalComment on above:Performed By: #### CDP, CP, LIP, TROPI, LIPRF, GLYHGB #### [facility] [employer] [address] [place] [address] Commercial Loan Officer: Kat Mcmanuskaline Phos90 U/VEonjiz50-172FdduaGrant HospitalComment on above:Performed By: #### CDP, CP, LIP, TROPI, LIPRF, GLYHGB #### [facility] [employer] [address] [place] [address] Commercial Loan Officer: Brandon Anaya MDALT [Catalytic activity/Vol]15 U/LNormal5-33 Grant HospitalComment on above:Performed By: #### CDP, CP, LIP, TROPI, LIPRF, GLYHGB #### [facility] [employer] [address] [place] [address] Commercial Loan Officer: Brandon Anaya MDAnion gap [Moles/Vol]18 mmol/LHigh9-17Grant HospitalComment on above:Performed By: #### CDP, CP, LIP, TROPI, LIPRF, GLYHGB #### [facility] [employer] [address] [place] [phone] Commercial Loan Officer: Brandon Anaya MDAST [Catalytic activity/Vol]11 U/LNormal<32Grant HospitalComment on above:Performed By: #### CDP, CP, LIP, TROPI, LIPRF, GLYHGB #### [facility] [address] [place] [address] Commercial Loan Officer: Brandon Anaya MDBilirubin Ql (U)0.39 mg/dLNormal0.3-1.2MHassler Health FarmComment on above:Performed By: #### CDP, CP, LIP, TROPI, LIPRF, GLYHGB #### [facility] [address] [place] [address] Commercial Loan Officer: NEHAL Mcmanusalcium [Mass/Vol]9.5 mg/dLNormal8.6-10.4Grant HospitalComment on above:Performed By: #### CDP, CP, LIP, TROPI, LIPRF, GLYHGB #### [address] [address] Commercial Loan Officer: NEHAL Mcmanushloride [Moles/Vol]99 mmol/ORhsyyd05-163HvgfpGrant HospitalComment on above:Performed By: #### CDP, CP, LIP, TROPI, LIPRF, GLYHGB #### [facility] [address] [place] [address] Commercial Loan Officer: Brandon Anaay MDCO2 [Moles/Vol]24 mmol/IVjnuyn74-51RtqwkGrant HospitalComment on above:Performed By: #### CDP, CP, LIP, TROPI, LIPRF, GLYHGB #### [facility] [address] [place] [address] Commercial Loan Officer: Brandon Anaya MDCreatinine [Mass/Vol]0.63 mg/dLNormal0.50-0.90 Grant HospitalComment on above:Performed By: #### CDP, CP, LIP, TROPI, LIPRF, GLYHGB #### [facility] [address] [place] [address] Commercial Loan Officer: Brandon Anaya MDGFR, Amer>60Normal>60[facility] Medical CenterComment on above:Performed By: #### CDP, CP, LIP, TROPI, LIPRF, GLYHGB #### [address] [address] Commercial Loan Officer: Brandon Anaya MDGFR,non Amer>60Normal>60[facility] Medical CenterComment on above:Performed By: #### CDP, CP, LIP, TROPI, LIPRF, GLYHGB #### [address] [address] Commercial Loan Officer: Brandon Anaya MDGlucose [Mass/Vol]208 mg/zDWcae47-88GczpkHassler Health FarmComment on above:Performed By: #### CDP, CP, LIP, TROPI, LIPRF, GLYHGB #### [address] [address] Commercial Loan Officer: Brandon Anaya MDPotassium [Moles/Vol]3.9 mmol/LNormal3.7-5.3 Grant HospitalComment on above:Performed By: #### CDP, CP, LIP, TROPI, LIPRF, GLYHGB #### [address] [address] Commercial Loan Officer: Brandon Anaya MDProtein [Mass/Vol]6.6 g/dLNormal6.4-8.3MHassler Health FarmComment on above:Performed By: #### CDP, CP, LIP, TROPI, LIPRF, GLYHGB #### [address] [address] Commercial Loan Officer: Brandon Anaya, MDSodium [Moles/Vol]141 mmol/AXiubdi530-175FaxnuGrant HospitalComment on above:Performed By: #### CDP, CP, LIP, TROPI, LIPRF, GLYHGB #### [facility] [employer] [address] [place] [address] [phone] Commercial Loan Officer: Brandon Anaya MDUrea nitrogen [Mass/Vol]17 mg/dLNormal8-23Grant HospitalComment on above:Performed By: #### CDP, CP, LIP, TROPI, LIPRF, GLYHGB #### [facility] [address] [place] [address] Commercial Loan Officer: Brandon Anaya MDBUN/CRE RatioNOT REPORTEDNormal9-20Grant HospitalComment on above:Performed By: #### CDP, CP, LIP, TROPI, LIPRF, GLYHGB #### [facility] [address] [place] [address] Commercial Loan Officer: FABIANA Mcmanustaging:NOT REPORTEDNormalGrant HospitalComment on above:Performed By: #### CDP, CP, LIP, TROPI, LIPRF, GLYHGB #### [facility] [address] [place] [address] Commercial Loan Officer: Brandon Anaya [facility] ASSOCIATIONomprehensive Metabolic Panelon 10-09-2019 Albumin [Mass/Vol]4.1 g/dL3.5 - 5.2 g/dLMercy Health- [place], KYAlbumin/Globulin [Mass ratio]1.6 {ratio}[facility]- [place], KYALP [Catalytic activity/Vol]90 U/L35 - 104 U/LMercy Health- [place], KYALT [Catalytic activity/Vol]15 U/L5 - 33 U/LMercy Health- [place], KYAnion gap [Moles/Vol]18 mmol/LHigh9 - 17 mmol/LMercy Health- [place], KYAST [Catalytic activity/Vol]11 U/L<32[facility]- [place], KYBilirubin Ql (U)0.39 mg/dL0.3 - 1.2 mg/dLMercy Health- [place], KYBun/Cre RatioNOT REPORTEDMercy Health- [place], KYCalcium [Mass/Vol]9.5 mg/dL8.6 - 10.4 mg/dLMercy Health- [place], KYChloride [Moles/Vol]99 mmol/L98 - 107 mmol/LMCleveland Clinic- [place], KYCO2 [Moles/Vol]24 mmol/L 20 - 31 mmol/[facility]- [place], KYCreatinine [Mass/Vol]0.63 mg/dL0.5 - 0.9 mg/dL [facility], KYGFR >60>60 mL/minMercy Health Clermont Hospital, KYGFR Non->60>60 mL/minMercy Health Clermont Hospital, KYGFR/1.73 sq M predicted among non-blacks MDRD (S/P/Bld) [Vol rate/Area][facility], KYComment on above:Average GFR for 70 or more years old: 75 mL/min/1.73sq m Chronic Kidney Disease: <60 mL/min/1.73sq m Kidney failure: <15 mL/min/1.73sq m eGFR calculated using average adult body mass. Additional eGFR calculator available at: http://www.CastingDB/multiple_crcl_2012.htm GFR/1.73 sq M predicted among non-blacks MDRD (S/P/Bld) [Vol rate/Area]NOT REPORTEDMercy Health [facility], KYGlucose [Mass/Vol]208 mg/sZZqfv63 - 99 mg/dLMercy Health [facility], KYInterpretation and review of laboratory resultsAbnormalMercy Health [facility], KYPotassium [Moles/Vol]3.9 mmol/L3.7 - 5.3 mmol/[facility], KYProtein [Mass/Vol]6.6 g/dL6.4 - 8.3 g/dLMercy Health [facility], KYSodium [Moles/Vol] 141 mmol/L135 - 144 mmol/[facility], KYUrea nitrogen [Mass/Vol]17 mg/dL8 - 23 mg/dLMercy Health [facility], KYEKG 12 Leadon 22-90-6156Jmxlar Rpoj18DDIIfkheClermont County Hospital, KYP Lvsa99espuiduDanos Health- [place], KYP-R Pokbgtsm152 [facility], KYQ-T Bezdfkwi742 [facility], KYQRS Itooughf66 msMercy Health- [place], KYQTc Calculation (ze)466 msMCleveland Clinic- [place], KYR [place]-9degreesRegency Hospital Company [place], KYT Ngpy3mwtvhedWchcv Health- [place], KYVentricular Bscv31VOATydfc Health- [place], KYEdi, Mhpn Incoming Ekg Results From [facility] - 10/09/2019 3:25 PM EDT Normal sinus rhythm Possible Left atrial enlargement Nonspecific ST abnormality Abnormal ECG No previous ECGs availableMercy Health [facility], KYNormal sinus rhythm Possible Left atrial enlargement Nonspecific ST abnormality Abnormal ECG No previous ECGs availableMercy Health Cl[facility], KYLIPASEon 45-00-6525Dcppsb [Catalytic activity/Vol] 48 U/L13 - 60 U/LMGreen Cross Hospital [place], KYLipaseon 96-44-2595Cyslat [Catalytic activity/Vol]48 U/JJrwelt09-05TqgfaGrant HospitalComment on above: Performed By: #### CDP, CP, LIP, TROPI, LIPRF, GLYHGB #### [employer] [address] [place] [address] [phone] Commercial Loan Officer: Cooper Mcmanus [facility], Fastingon 38-83-0990Vnablkczuhm [Mass/Vol]229 mg/dLHigh<200Grant HospitalComment on above: Result Comment: Cholesterol Guidelines: <200 Desirable 200-240 Borderline >240 UndesirablePerformed By: #### CDP, CP, LIP, TROPI, LIPRF, GLYHGB #### [employer] [address] [place] [address] [phone] Commercial Loan Officer: NEHAL Mcmanusholesterol in HDL [Mass/Vol]50 mg/dLNormal>40 Grant HospitalComment on above:Result Comment: HDL Guidelines: <40 Undesirable 40-59 Borderline >59 DesirablePerformed By: #### CDP, CP, LIP, TROPI, LIPRF, GLYHGB #### [employer] [address] [place] [address] [phone] Commercial Loan Officer: NEHAL Mcmanusholesterol in LDL [Mass/Vol]143 mg/dLHigh0-130 Grant HospitalComment on above:Result Comment: LDL Guidelines: <100 Desirable 100-129 Near to/above Desirable 130-159 Borderline >159 Undesirable Direct (measured) LDL and calculated LDL are not interchangeable tests.Performed By: #### CDP, CP, LIP, TROPI, LIPRF, GLYHGB #### [employer] [address] [place] [address] Commercial Loan Officer: NEHAL Mcmanusholesteroaguilar.total/Cholesterol in HDL [Mass ratio]4.6 {ratio}Normal<5MerEl Camino HospitalComment on above: Performed By: #### CDP, CP, LIP, TROPI, LIPRF, GLYHGB #### [facility] HospitalPowerDMS [address] [place] [address] Commercial Loan Officer: Brandon Anaya MDTriglyceride,Iboiqmz899 mg/dLHigh<150[facility] Medical CenterComment on above:Result Comment: Triglyceride Guidelines: <150 Desirable 150-199 Borderline 200-499 High >499 Very high Based on AHA Guidelines for fasting triglyceride, November 2011.Performed By: #### CDP, CP, LIP, TROPI, LIPRF, GLYHGB #### [employer] [address] [place] [address] Commercial Loan Officer: NEHAL Mcmanusholesterol in VLDL [Mass/Vol]NOT REPORTEDNormal 1-30Grant HospitalComment on above:Performed By: #### CDP, CP, LIP, TROPI, LIPRF, GLYHGB #### [employer] [address] [place] [address] Commercial Loan Officer: Brandon Anaya MDLipid, Fastingon 95-66-1606Lobymfmkeyd [Mass/Vol]229 mg/dLHigh<200[facility], KYComment on above: Cholesterol Guidelines: <200 Desirable 200-240 Borderline >240 Undesirable Cholesterol in HDL [Mass/Vol]50 mg/dL>40[facility], KYComment on above: HDL Guidelines: <40 Undesirable 40-59 Borderline >59 Desirable Cholesterol in LDL [Mass/Vol]143 mg/dLHigh0 - 130 mg/dLLecompte, [place] Comment on above: LDL Guidelines: <100 Desirable 100-129 Near to/above Desirable 130-159 Borderline >159 Undesirable Direct (measured) LDL and calculated LDL are not interchangeable tests. Cholesterol in VLDL [Mass/Vol]NOT REPORTEDHigh1 - 30 mg/dLLecompte, [place] Cholesterol.total/Cholesterol in HDL [Mass ratio]4.6 {ratio}<5[place], KYInterpretation and review of laboratory resultsAbnoNew Orleans, [place] Triglyceride, Qkxmjpd444 mg/dLHigh<150[place], KYComment on above: Triglyceride Guidelines: <150 Desirable 150-199 Borderline 200-499 High >499 Very high Based on AHA Guidelines for fasting triglyceride, November 2011. POC Glucose Fingerstickon 89-65-6694Rzzqgof [Mass/Vol]126 mg/wLNzho59 - 105 mg/dLLecompte, KYInterpretation and review of laboratory resultsAbnoParkton, KYSARS-CoV-2on 99-69-8484KAWO-CoV-2NormalGrant HospitalComment on above:Performed By: #### COVID #### [facility] [employer] [facility] [place] [address] Commercial Loan Officer: MAEVE Mcmanus-CoV-2,RapidNot DetectedNocaromont regional medical centerNOTDESalem City HospitalComment on above:Result Comment: Rapid NAAT: The specimen is NEGATIVE [...] management decisions. Fact sheet for Healthcare Providers: https://www.fda.gov/media/124366/download Fact sheet for Patients: https://www.fda.gov/media/331917/download Methodology: Isothermal Nucleic Acid AmplificationPerformed By: #### COVID #### [facility] [employer] [address] [place] [address] Commercial Loan Officer: MAEVE Mcmanus-CoV-2 Source.NASOPHARYNGEAL SWABNormalMerEl Camino HospitalComment on above:Performed By: #### COVID #### [facility]all[facility] [employer] [address] [place] [address] Commercial Loan Officer: Abimael Mcmanus [id number] INayacardiac [Mass/Vol]10 ng/LNormal0-14Grant HospitalComment on above: Result Comment: High Sensitivity Troponin values cannot be compared with other Troponin methodologies. Patients with high levels of Biotin oral intake (i.e >5mg/day) may have falsely decreased Troponin levels. Samples collected within 8 hours of biotin intake may require additional information for diagnosis.Performed By: #### TROPTejinder, ELMIRA #### [facility] [employer] [address] [place] [address] Commercial Loan Officer: Brennan Mcmanus I.cardiac [Mass/Vol]NOT REPORTEDNormal <0.03Grant HospitalComment on above:Performed By: #### TROPTejinder, BH #### [facility] [employer] [address] [place] [address] Commercial Loan Officer: Brennan Mcmanus I.cardiac [Mass/Vol]10 ng/LNormal0-14 Grant HospitalComment on above:Result Comment: High Sensitivity Troponin values cannot be compared with other Troponin methodologies. Patients with high levels of Biotin oral intake (i.e >5mg/day) may have falsely decreased Troponin levels. Samples collected within 8 hours of biotin intake may require additional information for diagnosis.Performed By: #### CDP, CP, LIP, TROPI, LIPRF, GLYHGB #### [employer] [address] [place], [place] [phone] Commercial Loan Officer: Brennan Mcmanus I.cardiac [Mass/Vol]NOT REPORTEDMercy Health [facility], KYTroponin T.cardiac [Mass/Vol]NOT REPORTED<0.03 ng/mLMercy Health [facility], KYTroponin, High Fptxauolnan32 ng/L0 - 14 ng/LMercy [facility], KYComment on above: High Sensitivity Troponin values cannot be compared with other Troponin methodologies. Patients with high levels of Biotin oral intake (i.e >5mg/day) may have falsely decreased Troponin levels. Samples collected within 8 hours of biotin intake may require additional information for diagnosis. Troponin I.cardiac [Mass/Vol]NOT REPORTEDNormal<0.03Grant HospitalComment on above:Performed By: #### KRIS CP, LIP, TROPI, LIPRF, GLYHGB #### [employer] [address] [place] [address] [phone] Commercial Loan Officer: Brennan Mcmanus I.cardiac [Mass/Vol]NOT REPORTEDMercy Health [facility], KYTrallyson T.cardiac [Mass/Vol]NOT REPORTED<0.03 ng/mLMercy Health [facility], KYTroponin, High Sntqxmitmij96 ng/L0 - 14 ng/LMercy [facility], INComment on above: High Sensitivity Troponin values cannot be compared with other Troponin methodologies. Patients with high levels of Biotin oral intake (i.e >5mg/day) may have falsely decreased Troponin levels. Samples collected within 8 hours of biotin intake may require additional information for diagnosis. UA w/Reflex Cultureon [id number] Acid,UrTRACEAbnormalNEGGrant HospitalComment on above:Performed By: #### CDP, CP, LIP, TROPI, LIPRF, GLYHGB #### [employer] [address] [place], [place] [phone] Commercial Loan Officer: Brandon Anaya MDBilirubin, SemiQt,UrNegativeNormalNEGGrant HospitalComment on above:Performed By: #### CDP, CP, LIP, TROPI, LIPRF, GLYHGB #### [facility] [address] [place] [phone] Commercial Loan Officer: NEHAL Mcmanusolor (U)YELLOWNormalYELMerEl Camino HospitalComment on above:Performed By: #### CDP, CP, LIP, TROPI, LIPRF, GLYHGB #### [address] [address] Commercial Loan Officer: Brandon Anaya MDGlucose Ql (U)NegativeNormalNEGGrant HospitalComment on above:Performed By: #### CDP, CP, LIP, TROPI, LIPRF, GLYHGB #### [address] [address] Commercial Loan Officer: Brandon Anaya MDHemoglobin, UrNegativeNormalNEGGrant HospitalComment on above:Performed By: #### CDP, CP, LIP, TROPI, LIPRF, GLYHGB #### [address] [address] Commercial Loan Officer: Brandon Anaya MDLeukocyte esterase Test strip Ql (U)Negative NormalNEGGrant HospitalComment on above:Performed By: #### CDP, CP, LIP, TROPI, LIPRF, GLYHGB #### [address] [address] Commercial Loan Officer: Brandon Anaya MDNitrite,UrNegativeNormalNEGGrant HospitalComment on above:Performed By: #### CDP, CP, LIP, TROPI, LIPRF, GLYHGB #### [address] [address] Commercial Loan Officer: Bladimir Mcmanus (U)5.5 [pH]Normal5.0-8.0MerEl Camino HospitalComment on above:Performed By: #### CDP, CP, LIP, TROPI, LIPRF, GLYHGB #### [facility] [address] [place] [address] Commercial Loan Officer: BLADIMIR Mcmanusrotein Ql (U)1+AbnormalNEGGrant HospitalComment on above:Performed By: #### CDP, CP, LIP, TROPI, LIPRF, GLYHGB #### [facility] [address] [place] [address] Commercial Loan Officer: FABIANA Mcmanuspecific gravity (U) [Rel density]1.086High 1.005-1.030Grant HospitalComment on above:Performed By: #### CDP, CP, LIP, TROPI, LIPRF, GLYHGB #### [facility] [address] [place] [address] Commercial Loan Officer: GODWIN McmanusurbidityCLEARNormalCLEARGrant HospitalComment on above:Performed By: #### CDP, CP, LIP, TROPI, LIPRF, GLYHGB #### [facility] [address] [place] [address] Commercial Loan Officer: Richar Mcmanusino,UrNormalNormalSalem City HospitalComment on above:Performed By: #### CDP, CP, LIP, TROPI, LIPRF, GLYHGB #### [facility] [address] [place] [address] Commercial Loan Officer: Jeni McmanusNOT REPORTEDNormFostoria City HospitalComment on above:Performed By: #### CDP, CP, LIP, TROPI, LIPRF, GLYHGB #### [facility] [address] [place] [address] Commercial Loan Officer: Brandon Anaya MDURINALYSIS, MICROon [id number], UANOT REPORTEDNoneMercy Health- [place], KYBacteria, UANOT REPORTEDNoneMercy Health- [place], [place] Casts UANOT REPORTEDMercy Health- [place], KYCrystals, UANOT REPORTEDNone /HPFMercy Health- [place], KYEpithelial Cells UA10 TO 20[facility]- [place], KYMucus, UANOT REPORTEDNoneMer[facility] Health- [place], KYOther Observations UANOT REPORTEDNOT REQ.[facility]- [place], KYRBC (U) [#/Vol]0 TO 2[facility]- [place], KYRenal Epithelial, UANOT REPORTED0 /HPFMercy Health- [place], KYTrichomonas, UANOT REPORTEDNoneMercy Health- [place], KYWBC, UA0 TO 2[facility]- [place], KYYeast, UANOT REPORTEDNoneMercy Health- [place], [place]-[facility]- [place], KYUS ABDOMEN LIMITEDon [id number] ABDOMEN LIMITED EXAMINATION: RIGHT UPPER QUADRANT ULTRASOUND 10/09/2019 3:35 pm COMPARISON: None. HISTORY: ORDERING SYSTEM PROVIDED HISTORY: RUQ and epigastric pain, r/o cholecystitis, gall bladder, pancreas survey worker PROVIDED HISTORY: RUQ and epigastric pain, r/o [...] Signed by: Fransisco Ochoa MD 10/09/19 Final resultNoMedina HospitalUS ABDOMEN LIMITED Specify organ? LIVER, GALLBLADDER, PANCREASon [id number]: RIGHT UPPER QUADRANT ULTRASOUND 10/09/2019 3:35 pm COMPARISON: None. HISTORY: ORDERING SYSTEM PROVIDED HISTORY: RUQ and epigastric pain, r/o cholecystitis, gall bladder, pancreas survey worker PROVIDED HISTORY: RUQ and epigastric pain, r/o cholecystitis, gall bladder, pancreas pathology Specify organ?->LIVER Specify organ?->GALLBLADDER Specify organ?->PANCREAS FINDINGS: LIVER: The liver demonstrates normal echogenicity without evidence of intrahepatic biliary ductal dilatation. BILIARY SYSTEM: Gallbladder is unremarkable without evidence of pericholecystic fluid,wall thickening or stones. Negative sonographic Hdez's sign. Common bile duct is within normal limits measuring 4 mm. RIGHT KIDNEY: The right kidney is grossly unremarkable without evidence of hydronephrosis. PANCREAS: Visualized portions of the pancreas are unremarkable. OTHER: No evidence of right upper quadrant ascites.[facility], KYUnremarkable right upper quadrant ultrasound.[facility], CLARAEdi, Mhpn Incoming Radiant Results From [facility] - 10/09/2019 4:01 PM EDT EXAMINATION: RIGHT UPPER QUADRANT ULTRASOUND 10/09/2019 3:35 pm COMPARISON: None. HISTORY: ORDERING SYSTEM PROVIDED HISTORY: RUQ and epigastric pain, r/o cholecystitis, gall bladder, pancreas survey worker PROVIDED HISTORY: RUQ and epigastric pain, r/o [...] ascites. IMPRESSION: Unremarkable right upper quadrant ultrasound. [place], KYUrinalysis Reflex to Cultureon [id number] Urine NegativeNEGATIVERegency Hospital Company [place], KYColor, UAYELLOWYELLOWPremier Health Miami Valley HospitalBugBuster [place], [place] Glucose, UrNegativeNEGATIVEProm[facility]ica [facility] [employer] [place], KYInterpretation and review of laboratory resultsAbnormalLouis Stokes Cleveland Va Medical Centertritrue- [place], KYKetones Ql (U)TRACEAbnormal NEGATIVERegency Hospital Company [place], KYLeukocyte esterase Test strip Ql (U)NegativeNEGATIVE [facility] HospitalVitaFlavor- [place], KYNitrite, UrineNegativeNEGATIVEPromedica [facility] [employer]- [place], KYpH, UA5.5 [facility] [employer] [place], KYProtein (U) [Mass/Vol]1+AbnormalNEGATIVEMercy Health- [place], [place] Specific [place], UA1.086HighMercy Health- [place], KYTurbidity UACLEARCLEARMercy Health- [place], KYUrinalysis CommentsNOT REPORTEDMercy Health- [place], KYUrine Hgb NegativeNEGATIVEMercy Health- [place], KYUrobilinogen, UrineNormalNormalMercy Health- [place], KYUrinalysis,Microon 10-09-2019-----NormalLouis Stokes Cleveland Va Medical Centercy [facility] Comment on above:Performed By: #### CDP, CP, LIP, TROPI, LIPRF, GLYHGB #### [employer] [address] [place] [phone] Commercial Loan Officer: Brandon Anaya MDEpithelial cells LM.HPF (Urine sed) [#/Area]10 TO 88Iqhokn3-4AfpdnGrant HospitalComment on above:Performed By: #### CDP, CP, LIP, TROPI, LIPRF, GLYHGB #### [employer] [address] [place] [address] Commercial Loan Officer: Brandon Anaya MDRBC (U) [#/Vol]0 TO 9Bqfkjp6-2Swftn [facility] CenterComment on above:Performed By: #### CDP, CP, LIP, TROPI, LIPRF, GLYHGB #### [employer] [address] [place] [address]683 Commercial Loan Officer: Brandon Anaya MDWBC (U) [#/Vol]0 TO 6Lblnjr6-4SzpjlGrant HospitalComment on above:Performed By: #### CDP, CP, LIP, TROPI, LIPRF, GLYHGB #### [employer] [address] [place] [address] Commercial Loan Officer: Hanh Mcmanusrpliz sediment LM Ql (Urine sed)NOT REPORTED NormalNONEMercKingsburg Medical CenterComment on above:Performed By: #### CDP, CP, LIP, TROPI, LIPRF, GLYHGB #### [facility] [address] [place] [address] Commercial Loan Officer: Radha Mcmanuscteria LM.HPF (Urine sed) [#/Area]NOT REPORTED NormalNONEMercy [facility] CenterComment on above:Performed By: #### CDP, CP, LIP, TROPI, LIPRF, GLYHGB #### [facility] [address] [place] [address] Commercial Loan Officer: Maria Elena Mcmanus LM.LPF (Urine sed) [#/Area]NOT REPORTED Normal0-2[facility] Medical CenterComment on above:Performed By: #### CDP, CP, LIP, TROPI, LIPRF, GLYHGB #### [facility] [address] [place] [address]30 Commercial Loan Officer: Manjula Mcmanusstdamien LM Nom (Urine sed)NOT REPORTEDNormal NONEMercy [facility] Medical CenterComment on above:Performed By: #### CDP, CP, LIP, TROPI, LIPRF, GLYHGB #### [facility] [address] [place] [address] Commercial Loan Officer: Brandon Anaya MDEpithelial, RenalNOT OIPIFUMZHekirk8BjeonGrant HospitalComment on above:Performed By: #### CDP, CP, LIP, TROPI, LIPRF, GLYHGB #### [facility] [address] [place] [address] Commercial Loan Officer: Yulia Mcmanus StrandsNOT REPORTEDNormalNONEMey [facility] Medical CenterComment on above:Performed By: #### CDP, CP, LIP, TROPI, LIPRF, GLYHGB #### [facility] [address] [place] [address] Commercial Loan Officer: Montana Mcmanus ObservationsNOT REPORTEDNormalNREQMercy [facility] Medical CenterComment on above:Performed By: #### CDP, CP, LIP, TROPI, LIPRF, GLYHGB #### [facility] [address] [place] [address] Commercial Loan Officer: Marissa McmanusonasNOT REPORTEDNoOhioHealth Nelsonville Health CenterComment on above:Performed By: #### CDP, CP, LIP, TROPI, LIPRF, GLYHGB #### [facility] [address] [place] [address] Commercial Loan Officer: Samuel Mcmanusast LM Ql (Urine sed)NOT REPORTEDBrown Memorial HospitalComment on above:Performed By: #### CDP, CP, LIP, TROPI, LIPRF, GLYHGB #### [facility] [employer] [facility] [place] [address] Commercial Loan Officer: DAYAN McmanusR ABDOMEN (KUB) (SINGLE AP VIEW)on [id number] ABDOMEN (KUB) (SINGLE AP VIEW)EXAMINATION: ONE SUPINE XRAY VIEW(S) OF THE ABDOMEN [...] Signed by: Naga Browning MD 10/09/19 Final resultNormalGrant HospitalNo evidence of bowel obstruction.[facility] HospitalCLARAEXAMINATION: ONE SUPINE XRAY VIEW(S) OF THE ABDOMEN 10/09/2019 7:17 pm COMPARISON: None. HISTORY: ORDERING SYSTEM PROVIDED HISTORY: r/o SBO TECHNOLOGIST PROVIDED HISTORY: r/o SBO Reason for Exam: port Supine FINDINGS: Nonspecific, nonobstructive bowel gas pattern with paucity of bowel gas. Atherosclerotic calcifications. Retained contrast in the urinary bladder. No acute osseous abnormality.[facility] Clermont HospitalRadha Mhpn Incoming Radiant Results From Trendrating/thredUP - 10/09/2019 7:35 PM EDT EXAMINATION: ONE [...] abnormality. IMPRESSION: No evidence of bowel obstruction. [facility] CLARAAldosteroneon [id number] ng/dLNormBluffton HospitalComment on above:Result Comment: (NOTE)INTERPRETIVE INFORMATION: Aldosterone, SerumReference intervals for age 15 [...] sodium intake.Access complete set of age- and/or gender-specifi c referenceintervals for this test in the [email or web address] Laboratory Test Directory([facility]).Performed by [facility],[address] [place] [address] ghq.[employer], Nik Rosas MD, Lab.DirectorPerformed at [facility] [address] [place], [place] [id number] [phone] Performed By: #### CORTI ####[facility] [place] [address] #### AAANDRES, AREN ####[facility] [place] [address] Renin Activityon [id number] Activity0.1 ng/mL/hrNormBluffton HospitalComment on above:Result Comment: (NOTE)INTERPRETIVE INFORMATION: Renin ActivityAdult, Normal sodium diet: Supine ................. 0.2-1.6 ng/mL/hr Upright ................ 0.5-4.0 ng/mL/hrChildren, Normal sodium diet, Supine: (1-7 days) ..... 2.0-35.0 ng/mL/hr Cord blood ............. 4.0-32.0 ng/mL/hr 1-12 mos ............... 2.4-37.0 ng/mL/hr 13 mos-3 yrs ........... 1.7-11.2 ng/mL/hr 4-5 yrs .......... ...... 1.0- 6.5 ng/mL/hr 6-10 yrs ............... 0.5- [...] activity when angiotensinogen isdecreased.See Compliance Statement D: [email or web address].[email or web address]/CSPerformed by [facility],[address] [facility], [place] [address] ksr.[employer], Nik Rosas MD, Lab. DirectorPerformed at [facility] [address] [place] [address] Performed By: #### CORTI ####[facility] [place] [address] #### AALD, AREN ####[address] [address] Basic Metab w/rfx MGon 06-29-2017(cont.)NormalCleveland Clinic [facility] General [facility]odi HospitalComment on above:Result Comment: Average GFR for 70 or more years old: 75 mL/min/1.73sq mChronic Kidney Disease: <60 mL/min/1.73sq mKidney failure: <15 mL/min/1.73sq meGFR calculated using average adult body mass. Additional eGFR calculator available at:http://www.CastingDB/multiple_crcl_2012.htmPerformedat [facility] [address] [place] [address] Performed By: #### CDP, BMPX, TROPI ####[address] [address] Anion gap10 mmol/LNormal9-17[facility] HospitalComment on above:Performed By: #### CDP, BMPX, TROPI ####[address] [address] Cnlrygm4.1 mg/dLNormal8.6-10.4[facility] HospitalComment on above:Performed By: #### CDP, BMPX, TROPI ####[address] [address] Vvdmjwvi747 mmol/KTtydkz13-163IxasvCleveland Clinic [facility] HospitalComment on above:Performed By: #### CDP, BMPX, TROPI ####[address] [address] EF378 mmol/MXosyiy43-85Tzauw Colonial Heights HospitalComment on above:Performed By: #### CDP, BMPX, TROPI ####[address] [address] Xgzaeifins9.66 mg/dLNormal0.50-0.90 [facility] HospitalComment on above:Performed By: #### CDP, BMPX, TROPI ####[address] [address] eGFR (non-black)mL/min/{1.73_m2}Normal>60[facility] HospitalComment on above: Performed By: #### CDP, BMPX, TROPI ####[address] [address] Glucose mass cegd683 mg/qQRzga07-67Ncndc [facility] HospitalComment on above:Performed By: #### CDP, BMPX, TROPI ####[address] [address] Potassium molar conc4.1 mmol/LNormal3.7-5.3[facility] HospitalComment on above: Performed By: #### CDP, BMPX, TROPI ####[address] [address] Vyamvk915 mmol/LKghftg735-285Rxsvl [facility] HospitalComment on above:Performed By: #### CDP, BMPX, TROPI ####[address] [address] Urea mgfbkqge84 mg/dLNormal8-23MerMedina HospitalComment on above:Performed By: #### CDP, BMPX, TROPI ####[address] [address] BUN/CRE RatioNOT REPORTEDNormal9-20[facility] Comment on above:Performed By: #### CDP, BMPX, TROPI ####[address] [address] Staging:NOT REPORTEDNormal [facility] HospitalComment on above:Performed By: #### CDP, BMPX, TROPI ####[address] [address] CBC with Diffon [id number]. Basophil0.00 k/uLNormal0.0-0.2MercBucyrus Community HospitalComment on above:Result Comment: Performed at [address] [address] Performed By: #### CDP, BMPX, TROPI ####[address] [phone].Neutrophil (Seg)3.80 k/uLNormal1.3-9.1MFlower Hospital Comment on above:Performed By: #### CDP, BMPX, TROPI ####[address] [address] Basophils/100 WBC Auto (Bld)1 %Normal0-2[facility] HospitalComment on above:Performed By: #### CDP, BMPX, TROPI ####[address] [address] Jjoygbrsxeb4.20 10*3/uLNormal0.0-0.4[facility] Comment on above:Performed By: #### CDP, BMPX, TROPI ####[address] [address] Eosinophils/100 leukocytes 2 %Normal0-4[facility] HospitalComment on above:Performed By: #### CDP, BMPX, TROPI ####[address] [phone] distribution width Auto Ratio (RBC)14.5 %Fmtsne83.5-14.9 [facility] HospitalCommckenzie memorial hospital on above:Performed By: #### CDP, BMPX, TROPI ####[address] [address] Erythrocytes (RBC)4.36 10*6/uLNormal4.0-5.2MFlower HospitalComment on above:Performed By: #### CDP, BMPX, TROPI ####[address] [address] Hematocrit (HCT)38.3 %Qeflps89-17RlpdsCleveland Clinic [facility] HospitalComment on above:Performed By: #### CDP, BMPX, TROPI ####[address] [address] Hemoglobin mass conc (Bld)12.9 g/aQAhkvyi96.0-16.0[facility] Comment on above:Performed By: #### CDP, BMPX, TROPI ####[address] [address] Sgmkkvmkxno5.20 10*3/uL Normal1.0-4.8[facility] on above:Performed By: #### CDP, BMPX, TROPI ####[address] [phone]/100 doiytsgukf77 %Eehlmv04-32WodcbCleveland Clinic [facility] Comment on above:Performed By: #### CDP, BMPX, TROPI ####[address] [place] [address] EQJ82.5 mjPtxzjf08-93AcfsxMedina HospitalComment on above:Performed By: #### CDP, BMPX, TROPI ####[address] [address] MCHC mass conc (RBC)33.6 g/sBLxqvyq56-31Bssyb [facility]. Charles HospitalComment on above: Performed By: #### CDP, BMPX, TROPI ####[address] [address] RZX56.8 uXCtdhsq13-155VqzblMedina HospitalComment on above:Performed By: #### CDP, BMPX, TROPI ####[address] [address] Tryvsakoz5.50 10*3/uLNormal0.1-1.3[facility] HospitalComment on above:Performed By: #### CDP, BMPX, TROPI ####[address] [address] Monocytes/100 leukocytes8 %High1-7[facility] Comment on above:Performed By: #### CDP, BMPX, TROPI ####[address] [address] Neutrophil (Seg)57 %Normal 36-66MerMedina HospitalComment on above:Performed By: #### CDP, BMPX, TROPI ####[address] [phone] mean volume (PMV)8.5 fLNormal6.0-12.0MerMedina HospitalComment on above:Performed By: #### CDP, BMPX, TROPI ####[address] [place] [address] Cqjjggcyn467 10*3/uXJnnqly147-682TrhvpCleveland Clinic [facility] HospitalComment on above:Performed By: #### CDP, BMPX, TROPI ####[address] [address] WBC (Leukocytes)6.7 10*3/uLNormal3.5-11.0[facility] HospitalComment on above:Performed By: #### CDP, BMPX, TROPI ####[address] [address] Auto Diff PerformedNOT REPORTEDNoFort Hamilton Hospital on above:Performed By: #### CDP, BMPX, TROPI ####[address] [address] Erythrocyte morphologyNOT REPORTEDThe [facility] of [facility] on above:Performed By: #### CDP, BMPX, TROPI ####[address] [address] Erythrocytes (RBC) NOT REPORTEDNormalCleveland Clinic [facility] HospitalComment on above:Performed By: #### CDP, BMPX, TROPI ####[address] [address] Granulocytes/100 WBC (Bld)NOT REPORTEDNormal0.00-0.30[facility] on above:Performed By: #### CDP, BMPX, TROPI ####[address] [address] Immature granulocytes #/vol (Bld)NOT SJWCNZCXPdsydj7MfjefC[facility] Clinic [facility] HospitalCommckenzie memorial hospital on above:Performed By: #### CDP, BMPX, TROPI ####[address] [phone] REPORTEDNoWright-Patterson Medical CenterComment on above:Performed By: #### CDP, BMPX, TROPI ####[facility] [place] [address] [phone] Morphology NOT REPORTEDNoWright-Patterson Medical CenterComment on above:Performed By: #### CDP, BMPX, TROPI ####[address] [phone] 88-50-6978Fktcvnci I.cardiac mass concNoWright-Patterson Medical CenterComment on above:Result Comment: Reference Range: <0.03 Within reference range. 0.03-0.09 Possible myocardial damage.Repeat at appropriate intervals to rule out chronic elevation. >= 0.10 Indicative of myocardial damage.Patients with high levels of Biotin oral intake (i.e >5mg/day) may have falsely decreased Troponin T levels. Samples collected within 8 hours of biotin intake may require additional information for diagnosis.Performed at [facility] [address] [place] [phone] By: #### CDP, BMPX, TROPI ####[address] [address] Troponin T.cardiac mass concug/LNormal<0.03[facility] HospitalComment on above:Result Comment: Troponin T results cannot be compared to Troponin-I results.Performed By: #### CDP, BMPX, TROPI ####[address] [phone] I.cardiac mass concNoWright-Patterson Medical Center Comment on above:Result Comment: Reference Range: <0.03 Within reference range. 0.03-0.09 Possible myocardial damage.Repeat at appropriate intervals to rule out chronic elevation. >= 0.10 Indicative of myocardial damage.Patients with high levels of Biotin oral intake (i.e >5mg/day) may have falsely decreased Troponin T levels. Samples collected within 8 hours of biotin intake may require additional information for diagnosis.Performed at [facility] [address] [facility] [place] [address] ([phone] By: #### TROPI ####[facility] [facility] [place] [address] Troponin T.cardiac mass concug/LNormal<0.03[facility] HospitalComment on above:Result Comment: Troponin T results cannot be compared to Troponin-I results.Performed By: #### TROPI ####[facility] [place] [address] XR CHEST (2 VW)on 14-17-3268NM CHEST (2 VW)EXAMINATION:TWO VIEWS OF THE CHEST, 06/27/2017 9:59 pmCOMPARISON:NoneHISTORY:ORDERING SYSTEM PROVIDEDHISTORY: arrhythmiaTECHNOLOGIST PROVIDED HISTORY:Reason for exam:->arrhythmiaOrdering Physician Provided Reason for Exam: arrhythmiaAcuity: AcuteType of Exam: InitialFINDINGS:There is nonspecific mild interstitial prominence, possibly representingCOPD. No pneumothorax. Minimal opacities at the bases may representatelectasis. Otherwise no other focal lung opacity. Calcified thoracicaorta. Borderline cardiomegaly. Bony demineralization. Mild degenerativechanges of the thoracic spine. Otherwise no definite acute osseusabnormality.IMPRESSION: Possible COPD. Minimal bibasilar opacities may reflect atelectasis. Mildcardiomegaly. Otherwise no acute cardiopulmonary findings.Interpreted by:FABIANA Oliverigned by:Zaire Dominguez MD5/6/18Final resultNormalMerMedina Hospital Basic Metab w/rfx MGon 06-28-2017(cont.)NormalCleveland Clinic [facility] General [facility] HospitalComment on above:Result Comment: Average GFR for 70 or more years old: 75 mL/min/1.73sq mChronic Kidney Disease: <60 mL/min/1.73sq mKidney failure: <15 mL/min/1.73sq meGFR calculated using average adult body mass. Additional eGFR calculator available at:http://www.Shipu.com/multiple_crcl_2012.htmPerformedat [facility] [address] [place] [address] Performed By: #### CDP, BMPX ####[address] [address] Anion gap13 mmol/LNormal9-17MerMedina HospitalComment on above:Performed By: #### CDP, BMPX ####[address] [address] Lqayxmw9.7 mg/dLNormal 8.6-10.4MerMedina HospitalComment on above:Performed By: #### CDP, BMPX ####[address] [address] Sjrygrqs811 mmol/FWbuddk29-024BnstfMedina HospitalComment on above: Performed By: #### CDP, BMPX ####[address] [address] KE882 mmol/BEvsxqh25-47IlmvhCleveland Clinic [facility] HospitalComment on above:Performed By: #### CDP, BMPX ####[address] [address] Kukzrzirxq7.53 mg/dLNormal 0.50-0.90MerMedina HospitalComment on above:Performed By: #### CDP, BMPX ####[address] [address] eGFR (non-black)mL/min/{1.73_m2}Normal>60MerMedina HospitalComment on above:Performed By: #### CDP, BMPX ####[address] [address] Glucose mass svkd926 mg/rOHgau40-40StmuvFlower HospitalComment on above:Performed By: #### CDP, BMPX ####[address] [address] Potassium molar conc3.7 mmol/LNormal3.7-5.3[facility] HospitalComment on above:Performed By: #### CDP, BMPX ####[address] [address] Gxjqfh407 mmol/RMqefvf106-165BbnesCleveland Clinic [facility] HospitalComment on above:Performed By: #### CDP, BMPX ####[address] [address] Urea utgimrdt85 mg/dLNormal8-23[facility] HospitalComment on above:Performed By: #### CDP, BMPX ####[address] [address] BUN/CRE RatioNOT REPORTEDNormal9-20[facility] HospitalCommckenzie memorial hospital on above:Performed By: #### CDP, BMPX ####[address] [phone]:NOT REPORTEDNormalC[facility] Clinic [facility] HospitalCommckenzie memorial hospital on above:Performed By: #### CDP, BMPX ####[address] [phone] Metabolic Profon 06-28-2017(cont.)Normal [facility] HospitalCommckenzie memorial hospital on above:Result Comment: Average GFR for 70 or more years old: 75 mL/min/1.73sq mChronic Kidney Disease: <60 mL/min/1.73sq mKidney failure: <15 mL/min/1.73sq meGFR calculated using average adult body mas s. Additional eGFR calculator available at:http://www.globalrph.[employer]/multiple_crcl_2012.htmPerformedat [facility] [address] [place] [address] Performed By: #### CDP, BMP, TROPI, TSHX ####[address] [address] Anion gap13 mmol/LNormal9-17[facility] HospitalComment on above:Performed By: #### CDP, BMP, TROPI, TSHX ####[address] [address] Ohahosk0.2 mg/dL Normal8.6-10.4[facility] HospitalComment on above:Performed By: #### CDP, BMP, TROPI, TSHX ####[address] [address] Rvzamfmu411 mmol/LCevgub65-886UklgxCleveland Clinic [facility] HospitalComment on above:Performed By: #### CDP, BMP, TROPI, TSHX ####[address] [address] TI234 mmol/YBrdehs87-00 [facility] HospitalComment on above:Performed By: #### CDP, BMP, TROPI, TSHX ####[address] [address] Uqyyezlkac2.61 mg/dLNormal0.50-0.90[facility] Comment on above:Performed By: #### CDP, BMP, TROPI, TSHX ####[address] [address] eGFR (non-black) mL/min/{1.73_m2}Normal>60MerMedina HospitalComment on above:Performed By: #### CDP, BMP, TROPI, TSHX ####[address] [address] Glucose mass lxtu079 mg/kALocj23-29Vhaav [facility] HospitalComment on above:Performed By: #### CDP, BMP, TROPI, TSHX ####[address] [address] Potassium molar conc4.7 mmol/LNormal3.7-5.3MercBucyrus Community HospitalComment on above:Performed By: #### CDP, BMP, TROPI, TSHX ####[address] [address] Sgcdce457 mmol/LNormal 135-144MerMedina HospitalComment on above:Performed By: #### CDP, BMP, TROPI, TSHX ####[address] [address] Urea hdiirnje79 mg/dLNormal8-23[facility] Comment on above:Performed By: #### CDP, BMP, TROPI, TSHX ####[address] [address] BUN/CRE RatioNOT REPORTED Normal9-20[facility] HospitalComment on above:Performed By: #### CDP, BMP, TROPI, TSHX ####[address] [address] Staging:NOT REPORTEDNormalMerMedina HospitalComment on above:Performed By: #### CDP, BMP, TROPI, TSHX ####[address] [address] CBC with Diffon 06-28-2017 Abs. Basophil0.00 k/uLNormal0.0-0.2MFlower HospitalComment on above: Result Comment: Performed at [address] [place] [address] Performed By: #### CDP, BMPX ####[address] [address] Abs.Neutrophil (Seg)5.50 k/uLNormal1.3-9.1[facility] HospitalComment on above:Performed By: #### CDP, BMPX ####[address] [address] Basophils/100 WBC Auto (Bld)1 %Normal0-2[facility] HospitalCommckenzie memorial hospital on above:Performed By: #### CDP, BMPX ####[address] [address] Kczredrvlhn4.10 10*3/uL Normal0.0-0.4[facility] HospitalComment on above:Performed By: #### CDP, BMPX ####[address] [phone]/100 leukocytes2 %Normal0-4[facility] HospitalComment on above:Performed By: #### CDP, BMPX ####[address] [address] Erythrocyte distribution width Auto Ratio (RBC) 14.8 %Vbyejj83.5-14.9MerMedina HospitalComment on above:Performed By: #### CDP, BMPX ####[address] [address] Erythrocytes (RBC)4.47 10*6/uLNormal4.0-5.2[facility] HospitalComment on above:Performed By: #### CDP, BMPX ####[address] [address] Hematocrit (HCT)39.8 % Vaxxgj27-37YrkbyMedina HospitalComment on above:Performed By: #### CDP, BMPX ####[address] [phone] mass conc (Bld)13.3 g/kXZukpga94.0-16.0[facility] HospitalComment on above:Performed By: #### CDP, BMPX ####[address] [address] Frfyndvrriu4.90 10*3/uL Normal1.0-4.8[facility] HospitalComment on above:Performed By: #### CDP, BMPX ####[address] [phone]/100 yjkuhlcyrn44 %Ilp21-41ZyvibCleveland Clinic [facility] HospitalComment on above:Performed By: #### CDP, BMPX ####[address] [address] SFY81.7 noBbbdzc18-72QqtocCleveland Clinic [facility] Comment on above:Performed By: #### CDP, BMPX ####[address] [address] MCHC mass conc (RBC)33.3 g/dLNormal 31-37MerMedina HospitalComment on above:Performed By: #### CDP, BMPX ####[address] [address] MCV 89.1 lHEzctip42-172OknsgCleveland Clinic [facility] HospitalComment on above:Performed By: #### CDP, BMPX ####[address] [address] Jopdpjubc0.50 10*3/uLNormal0.1-1.3MFlower Hospital Comment on above:Performed By: #### CDP, BMPX ####[address] [address] Monocytes/100 leukocytes6 %Normal1-7 [facility] HospitalComment on above:Performed By: #### CDP, BMPX ####[address] [address] Neutrophil (Seg)68 %Qnwn09-04EwcyqCleveland Clinic [facility] HospitalComment on above: Performed By: #### CDP, BMPX ####[address] [address] Platelet mean volume (PMV)8.6 fLNormal6.0-12.0 [facility] HospitalComment on above:Performed By: #### CDP, BMPX ####[address] [address] Mfpyfqekk941 10*3/cBGebcrw090-017VdyppMedina HospitalComment on above: Performed By: #### CDP, BMPX ####[address] [address] WBC (Leukocytes)8.0 10*3/uLNormal3.5-11.0[facility] HospitalComment on above:Performed By: #### CDP, BMPX ####[address] [address] Auto Diff PerformedNOT REPORTEDDetwiler Memorial HospitalComment on above:Performed By: #### CDP, BMPX ####[address] [address] Erythrocyte morphologyNOT REPORTEDDetwiler Memorial HospitalComment on above:Performed By: #### CDP, BMPX ####[address] [address] Erythrocytes (RBC)NOT REPORTEDNormalC[facility] Clinic [facility] HospitalComment on above:Performed By: #### CDP, BMPX ####[address] [phone]/100 WBC (Bld)NOT REPORTEDNormal0.00-0.30MerCleveland Clinic on above:Performed By: #### CDP, BMPX ####[address] [address] Immature granulocytes #/vol (Bld)NOT BBSGVIUJLozbtj5PrjgbUniversity Hospitals Conneaut Medical Centerment on above: Performed By: #### CDP, BMPX ####[address] [address] PlateletsNOT REPORTEDNormalBluffton Hospital on above:Performed By: #### CDP, BMPX ####[address] [address] WBC MorphologyNOT REPORTED NormalBluffton Hospital on above:Performed By: #### CDP, BMPX ####[address] [address] Abs. Basophil0.10 k/uLNormal0.0-0.2MercBucyrus Community HospitalCommckenzie memorial hospital on above:Result Comment: Performed at [address] [address] Performed By: #### CDP, BMP, TROPI, TSHX ####[address] [address] Abs.Neutrophil (Seg)4.20 k/uLNormal1.3-9.1[facility] HospitalCommckenzie memorial hospital on above:Performed By: #### CDP, BMP, TROPI, TSHX ####[address] [address] Basophils/100 WBC Auto (Bld)1 %Normal0-2[facility] HospitalComment on above:Performed By: #### CDP, BMP, TROPI, TSHX ####[address] [address] Dwzkpdajexj3.20 10*3/uLNormal0.0-0.4[facility] Comment on above:Performed By: #### CDP, BMP, TROPI, TSHX ####[address] [address] Eosinophils/100 leukocytes 2 %Normal0-4[facility] HospitalComment on above:Performed By: #### CDP, BMP, TROPI, TSHX ####[address] [address] Erythrocyte distribution width Auto Ratio (RBC)14.7 %Normal 11.5-14.9MerMedina HospitalComment on above:Performed By: #### CDP, BMP, TROPI, TSHX ####[address] [address] Erythrocytes (RBC)4.38 10*6/uLNormal4.0-5.2[facility] HospitalComment on above:Performed By: #### CDP, BMP, TROPI, TSHX ####[address] [address] Hematocrit (HCT) 38.7 %Gzdpig18-04LxrrsMedina HospitalComment on above:Performed By: #### CDP, BMP, TROPI, TSHX ####[address] [address] Hemoglobin mass conc (Bld)12.9 g/jSNwqaby72.0-16.0MerMedina HospitalComment on above:Performed By: #### CDP, BMP, TROPI, TSHX ####[address] [address] Lymphocytes2.60 10*3/uLNormal1.0-4.8MerMedina HospitalComment on above: Performed By: #### CDP, BMP, TROPI, TSHX ####[address] [address] Lymphocytes/100 ovalczpqir08 %Normal 24-44MerMedina HospitalComment on above:Performed By: #### CDP, BMP, TROPI, TSHX ####[address] [address] TSW65.6 vmTshynw48-87WpyqoMedina HospitalComment on above:Performed By: #### CDP, BMP, TROPI, TSHX ####[address] [address] MCHC mass conc (RBC)33.4 g/nAEyccyb27-88HelxiMedina HospitalCommckenzie memorial hospital on above:Performed By: #### CDP, BMP, TROPI, TSHX ####[address] [address] XIU81.4 rYPfnwri67-388ByvpwMedina HospitalComment on above:Performed By: #### CDP, BMP, TROPI, TSHX ####[address] [address] Hgcowcsbk2.60 10*3/uL Normal0.1-1.3[facility] HospitalComment on above:Performed By: #### CDP, BMP, TROPI, TSHX ####[address] [address] Monocytes/100 leukocytes8 %High1-7[facility] Comment on above:Performed By: #### CDP, BMP, TROPI, TSHX ####[address] [address] Neutrophil (Seg)55 %Normal 36-66MerMedina HospitalComment on above:Performed By: #### CDP, BMP, TROPI, TSHX ####[address] [address] Platelet mean volume (PMV)8.6 fLNormal6.0-12.0[facility] HospitalComment on above:Performed By: #### CDP, BMP, TROPI, TSHX ####[address] [address] Mendobepy720 10*3/dBYpdxxx629-061VfirjMedina HospitalComment on above:Performed By: #### CDP, BMP, TROPI, TSHX ####[address] [address] WBC (Leukocytes)7.7 10*3/uLNormal3.5-11.0[facility] HospitalComment on above:Performed By: #### CDP, BMP, TROPI, TSHX ####[address] [address] Auto Diff PerformedNOT REPORTEDNormalCleveland Clinic [facility] Lodi HospitalComment on above: Performed By: #### CDP, BMP, TROPI, TSHX ####[address] [address] Erythrocyte morphologyNOT REPORTED NormalCleveland Clinic [facility] Lodi HospitalComment on above:Performed By: #### CDP, BMP, TROPI, TSHX ####[address] [address] Erythrocytes (RBC)NOT REPORTEDNormalSan [facility] Comment on above:Performed By: #### CDP, BMP, TROPI, TSHX ####[address] [address] Granulocytes/100 WBC (Bld) NOT REPORTEDNormal0.00-0.30MerMedina HospitalComment on above:Performed By: #### CDP, BMP, TROPI, TSHX ####[address] [address] Immature granulocytes #/vol (Bld)NOT REPORTED Cgdvne5BiaakCleveland Clinic Akron General Lodi HospitalComment on above:Performed By: #### CDP, BMP, TROPI, TSHX ####[address] [address] PlateletsNOT REPORTEDNormalCleveland Clinic [facility] HospitalComment on above:Performed By: #### CDP, BMP, TROPI, TSHX ####[address] [address] WBC MorphologyNOT REPORTED NormalCleveland Clinic [facility]odi HospitalComment on above:Performed By: #### CDP, BMP, TROPI, TSHX ####[address] [address] Cortisolon 69-05-4427Fbaiwgwf2.7 ug/dLNormal2.7-18.4[facility] HospitalComment on above:Result Comment: Cortisol Reference Range: AM 6.0-18.4 PM 2.7-10.5Performed at [facility] [place] [address] [phone] By: #### CORTI ####RedDrummerCayuga Medical CenterVahqwilfsflv5[address] [place] [address] #### AALD, AREN ####[address] [phone] Info.NOT REPORTEDNoWright-Patterson Medical CenterComment on above:Performed By: #### CORTI ####[address] [address] #### AALD, AREN ####[address] [address] Renin Activityon 27-06-0639Nrqjcmu:NOT REPORTEDNoWright-Patterson Medical CenterComment on above:Performed By: #### CORTI ####[address] [address] #### AALD, AREN ####[address] [address] TSH w/reflex to FT4on 32-21-1575Hyvtjkz stimulating hormone (TSH)2.65 m[IU]/LNormal 0.30-5.00[facility] HospitalComment on above:Result Comment: Performed at [address] [address] [phone] By: #### CDP, BMP, TROPI, TSHX ####[address] [address] Troponinon 06-28-2017 Troponin I.cardiac mass concNoWright-Patterson Medical CenterComment on above: Result Comment: Reference Range: <0.03 Within reference range. 0.03-0.09 Possible myocardial damage.Repeat at appropriate intervals to rule out chronic elevation. >= 0.10 Indicative of myocardial damage.Patients with high levels of Biotin oral intake (i.e >5mg/day) may have falsely decreased Troponin T levels. Samples collected within 8 hours of biotin intake may require additional inform ation for diagnosis.Performed at [address] [place] [address] [phone] By: #### TROPI ####[address] [place] [address] Troponin T.cardiac mass concug/LNormal<0.03[facility] HospitalComment on above:Result Comment: Troponin T results cannot be compared to Troponin-I results.Performed By: #### TROPI ####[address] [address] Troponin I.cardiac mass concNormalC[facility] Clinic [facility] Comment on above:Result Comment: Reference Range: <0.03 Within reference range. 0.03-0.09 Possible myocardial damage.Repeat at appropriate intervals to rule out chronic elevation. >= 0.10 Indicative of myocardial damage.Patients with high levels of Biotin oral intake (i.e >5mg/day) may have falsely decreased Troponin T levels. Samples collected within 8 hours of biotin intake may require additional information for diagnosis.Performed at [address] [address] [phone] By: #### TROPI ####[address] [address] Troponin T.cardiac mass concug/LNormal<0.03[facility] HospitalComment on above:Result Comment: Troponin T results cannot be compared to Troponin-I results.Performed By: #### TROPI ####[address] [address] Troponin I.cardiac mass concNormalC[facility] Clinic [facility] HospitalComment on above:Result Comment: Reference Range: <0.03 Within reference range. 0.03-0.09 Possible myocardial damage.Repeat at appropriate intervals to rule out chronic elevation. >= 0.10 Indicative of myocardial damage.Patients with high levels of Biotin oral intake (i.e >5mg/day) may have falsely decreased Troponin T levels. Samples collected within 8 hours of biotin intake may require additional information for diagnosis.Performed at [address] [address] [phone] By: #### CDP, BMP, TROPI, TSHX ####[address] [phone] T.cardiac mass concug/LNormal<0.03[facility] HospitalComment on above:Result Comment: Troponin T results cannot be compared to Troponin-I results.Performed By: #### CDP, BMP, TROPI, TSHX ####[address] [phone] w/Reflex Cultureon 21-86-4072Oshkibbbbixzv mass conc NegativeNormalNEGCleveland Clinic Akron General Lodi HospitalComment on above:Performed By: #### UAX ####[address] [address] Bilirubin (direct)NegativeNormalNEGCleveland Clinic Akron General Lodi HospitalComment on above: Performed By: #### UAX ####[address] [phone] exam not performed based on chemical results unless requested inNormalCleveland Clinic [facility]odi HospitalComment on above: Result Comment: original order.Performed at [address] [address] [phone] By: #### UAX ####[address] [phone] mass conc (Bld)NegativeNormalNEGCleveland Clinic Akron General Lodi HospitalComment on above: Performed By: #### UAX ####[address] [phone],UrNegativeNormalNEGMerCleveland Clinic on above:Performed By: #### UAX ####[facility] [facility] [place] [address] TurbidityCLEARNormalCLEARBluffton Hospital on above:Performed By: #### UAX ####[facility] [place] [address] Urine, colorYELLOWNormal YELMercBucyrus Community HospitalCommckenzie memorial hospital on above:Performed By: #### UAX ####[facility] [place] [address] Urine, glucose presenceNegativeNormalNEGBluffton Hospital on above:Performed By: #### UAX ####[facility] [place] [address] Urine, leukocyte esterase presenceNegativeNormalNEGBluffton Hospital on above:Performed By: #### UAX ####[facility] [place] [address] Urine, pH5.5 [pH]Normal 5.0-8.0[facility] on above:Performed By: #### UAX ####[facility] [place] [address] Urine, protein presenceNegativeNormalNEGBluffton Hospital on above:Performed By: #### UAX ####[facility] [place] [address] Urine, specific gravity1.811Rsigki3.000-1.030 [facility] on above:Performed By: #### UAX ####[facility] [place] [address] Urobilinogen,Ur NormalNormalNORMMercy Colonial Heights HospitalComment on above:Performed By: #### UAX ####Suzy [facility] [place] [address] Vital Signs Date TimeVital SignValuePerforming MpksunrdcLaguyusb89-94-8029 10:25-0500Body zcuimv377.56 cmMD Velasquez Bunch Work Phone: [facility]02-13-2024 10:25-0500 Body mass index (BMI) [Ratio]26.7 kg/m2MD Velasquez Bunch Work Phone: [facility]02-13-2024 10:25-0500 Body zssyst34.76 kgMD Velasquez Bunch Work Phone: [facility]08-22-2020 15:45-0400 BP Yfngxjppz85 mm[Hg][facility], DA60-35-6329 15:45-0400BP Pganysyt666 mm[Hg][facility], ZP46-49-2232 08:25-0400Body Oshqphlohgo42.01 [degF][facility] BQ78-90-9063 08:25-0400 Pulse (Heart Rate)70 /minAnson Community Hospital, BJ91-98-6543 08:25-0400 Pulse Tiifwvec19 %[facility] SL80-91-9430 08:25-0400 Respiratory Rate20 /minAnson Community Hospital, WW96-88-3669 06:15-0400BMI (Body Mass Index)25.51 kg/s2IybsmrfsAnson Community Hospital, MF55-01-3630 06:15-0400Body adgyti53.4 kgAnson Community Hospital, GP74-71-2671 15:22-0591Xvftfp329.6 cmCourCherrington Hospital, DN03-66-2987 16:07-0400 Respiratory rateNOT REPORTEDRANVIR [facility] Comment on above:Performed By: #### CDP, CP, LIP, TROPI, LIPRF, GLYHGB #### [facility] [address] [place] [address] Commercial Loan Officer: Brandon Anaya MD08-19-2020 14:24-0400Respiratory rateNOT REPORTEDCoRegency Hospital [place], [place] Encounters Encounter DateEncounter TypeCare ProviderFacilityStart: 81-77-1965Tjawtfgedb and management of inpatientMUNIER NAZZALUniversity [facility] Southeasttart: 08-26-2024 End: 92-76-0751Iwjqelyfcw and management of inpatientMUNIER NAZZALUniversEast Liverpool City Hospitaltart: 08-17-2024 End: 36-18-6702tzxsphqenzCmwwgig M HoyFacility:[facility] Start: 08-04-2024 End: 84-54-8978hdptbazlzsIUBNKMMadison Healthtart: 07-22-2024 End: 41-25-8423vvftcwmvfxUNOLGKKSelect Medical [facility] Start: 14-68-1447fufsdqkcaxZZKDKHolmes County Joel Pomerene Memorial Hospitaltart: 53-10-7538uwuojzqnvmVIXXRIACoshocton Regional Medical Centertart: 06-06-2024 End: 17-12-9902fmzuvvtsfrQJXREUMadison Healthtart: 06-06-2024 End: 86-61-7914lpalpigdhfUZCNJDMadison Healthtart: 05-31-2024 End: 64-94-1120aomftltpikKOIIMTSSelect Medical Specialty Hospital [facility] Start: 05-20-2024 End: 62-02-9985ggjwrjyikxQFLLK A PETITTINot AvailableStart: 05-20-2024 End: 82-06-1376Jflwuv outpatient visit 25 minutesEmminerva Red MD Work Phone: [facility] SWS DERMComment on above:Other atopic dermatitis (Primary Dx); High risk medication useStart: 05-20-2024 End: 99-91-6848Hmpbns flowsheetCurry Red MD Work Phone: noms SWS DERMStart: 05-20-2024 End: 44-41-2170Tvmunn flowsheetCurry Red MD Work Phone: noms SWS DERMStart: 40-67-4183gltirloqzrMDKI [facility] Hospitaltart: 05-11-2024 End: 02-06-0966rrrhkvjrkxUMLWS [facility] Systemtart: 28-15-7771vtwkkjlmhrNSSLEFA [facility]ome[facility] Hospitaltart: 03-26-2024 End: 32-34-8154loynvcisbyOIGAXUK Healthcaretart: 03-09-2024 End: 44-36-9393pnsvkuumhlWNNY [facility] Hospitaltart: 70-42-1598eiumsdrdrmFODA ELUniversity Hospitals Geneva Medical Centertart: 11-62-0154Emjrtjzats and management of inpatientOMAR [facility] Columbustart: 94-45-8415Zdqeoisfnm and management of inpatientSHOBHA [facility] Systemtart: 81-96-4332Mvbgbzhomm and management of inpatientSHOBHA [facility] Systemtart: 62-79-7925Xdaqmysuaa and management of inpatientKIMBERLY [facility] Centertart: 88-10-9210Xuqbciszvp and management of inpatientZAID [facility]htart: 32-90-7605Cjlajdqnyb and management of inpatientTHOMAS D OWEISUDiley Ridge Medical Centertart: 93-86-6130Zjlwpsirhf and management of inpatientZAID [facility]htart: 13-71-8076Axieezddqc and management of inpatientZAID [facility] Centertart: 03-08-8753Usdxgquljn and management of inpatientWHITNEY [facility] Campustart: 02-02-2024 Evaluation and management of inpatientNASIR ALIJ.W. [facility] Hospitaltart: 78-51-7989Mbideuedyp and management of inpatientOMAR [facility] Hospitaltart: 02-02-2024 End: 88-95-7636Oulyizmhie and management of inpatientOMAR [facility] Columbustart: 02-01-2024 End: 12-90-5969xstdypldzdHLHRHS NAZZALUniMadison Healthtart: 13-79-5110Yxceqvpvqz and management of inpatientJAMIE VENKATESHCleveland Clinic Marymount Hospitaltart: 09-75-9107Cdfrspjhoy and management of inpatient RYNE NIGELSelect Medical TriHealth Rehabilitation Hospitaltart: 73-93-5659Prmofdzje department patient visitUniversity Hospitals [facility] Start: 33-67-3520Kmzsvoqwp department patient visitKettering Health Washington Townshiptart: 01-27-2024 End: 41-10-0512Uzxfimqskz and management of inpatientOMAR [facility] Columbustart: 96-78-9188rpxmqoshsqLXCDDRT [facility] Hospitaltart: 01-16-2024 End: 84-04-7186Iwizdb flowsPuma Torres PA Work Phone: [facility] SWS DERMStart: 01-16-2024 End: 21-99-2360Xsonmk flowsPuma [facility] PA Work Phone: [facility] SWS DERMStart: 01-16-2024 End: 43-68-5787Slgjfv outpatient visit 25 minutesRyalverda Memous[facility] PA Work Phone: [facility] SWS DERMComment on above:Other atopic dermatitis (Primary Dx)Start: 01-16-2024 End: 99-50-0592zjrekcgongZRBVD NORTHEIMNot AvailableStart: 12-31-2023 End: 89-66-4931zmpmdnmcpoVQCXVThe MetroHealth Systemtart: 20-44-0964Oydonsvppo and management of inpatientHANI SAADUniversity [facility] Southeasttart: 12-05-2023 End: 92-92-1919Nnuwbhbxkh and management of inpatientHANI SAADUniversity [facility] Southeasttart: 12-02-2023 End: 30-50-9771hmynfwepwhMTAI [facility] Hospitaltart: 04-17-2023 End: 10-70-6895lojlcrlxvaQJ Velasquez M Hoy Work Phone: [facility] Work Phone: Start: 04-17-2023 End: 01-71-3178Jgtfzis encounter procedureMD Velasquez Hoy Work Phone: [facility]-Pre-Surgical Testing Work Phone: Start: 04-08-2023 End: 81-32-0452fcpuufumubDW Velasquez M Hoy Work Phone: [facility] Work Phone: Start: 04-08-2023 End: 46-78-1896Fqcsudz encounter procedureMD Velasquez Hoy Work Phone: [facility] Work Phone: Start: 04-08-2023 End: 37-84-9944ftoozqzuibTD Velasquez M Hoy Work Phone: [facility] Work Phone: Start: 04-08-2023 End: 14-05-5198Oxuxeqo encounter procedureMD Velasquez Hoy Work Phone: [facility] Start: 71-65-1744rgvkzdercvAW VELASQUEZ HOY .Facility:N7Ibyuc: 05-29-2022 End: 43-57-6474jfiyglaktbEA VELASQUEZ HOY .Facility:Y4Fhilr: 03-07-2022 End: 94-46-4573povocljyiuNR VELASQUEZ HOY .Facility:Q5Qmabd: 02-06-2022 End: 88-84-4665uwmukqykeiZD VELASQUEZ HOY .Facility:U4Eblki: 48-19-8092dgxzuxzgsh DR VELASQUEZ BUNCH .Facility:N9Hhijw: 10-09-2019 End: 13-37-5431Omzrewkbjk and management of inpatientRANVIR S RATHOREMercy Contra Costa Regional Medical Centertart: 10-09-2019 End: 42-21-6322Ncljmjplae and management of inpatientCoemerald Mercado Work Phone: stvz CAR 2Comment on above:Abdominal aortic aneurysm (AAA) without rupture (HCC) (Primary Dx); Acute low back pain, unspecified back pain laterality, unspecified whether sciatica present; Vertigo; Nausea and vomiting, intractability of vomiting not specified, unspecified vomiting type; Hypertensive urgencyStart: 06-27-2017 End: 07-37-5108Idinqhjekk and management of inpatientDOUGLAS James YMlizet [facility] Procedures DateProcedureProcedure DetailPerforming ClinicianStart: 81-14-5487Zxqsfj-up visitOMAR HORANIStart: 74-96-8811Rmlees-up visitOMAR HORANIStart: 02-16-2024 Follow-up visitOMAR HORANIStart: 87-84-9680Toouej-up visitOMAR HORANIStart: 11-75-0751Lmgrcz-up visitOMAR HORANIStart: 68-57-2245Cwzgwr-up visitOMAR HORANI Start: 59-38-8333Cdfvc X-ray of right handMD Velasquez Bunch Work Phone: Start: 70-94-8843Ynemi count complete auto&auto difrntl wbcRANVIR RATHOREStart: 28-42-5200Hihmijejtppqf metabolic panelRANVIR RATHOREStart: 05-42-9275Txlosln bacterial quanttative colony count urineRANVIR RATHOREStart: 83-79-2813Kgejq dip stick/tablet reagent auto microscopyRANVIR RATHOREStart: 99-54-8861Wsqvdpc blood reagent stripRANVIR RATHOREStart: 21-28-4452BESKBGELU PATIENTRANVIR RATHOREStart: 60-45-4654Qlxwp dip stick/tablet reagent auto microscopyJonathan H Demeter Work Phone: Start: 18-23-9115CC CONSULT TO HOME CARE NEEDSRANVIR RATHOREStart: 04-27-6805Lszzucc blood reagent stripRanvir S Judie Work Phone: Start: 98-70-2447CDLDTIS SCANRANVIR RATHOREStart: 86-21-5585VE CONSULT TO UROLOGYRANVIR RATHOREStart: 85-39-9337Pnac bld gluc mntr dev cleared fda spec home useRANVIR RATHOREStart: 94-52-1154Pegsncr blood reagent stripRANVIR RATHOREStart: 56-73-8901POZEYIHY OXYGEN THERAPY PROTOCOL GIOVANNA RATHOREStart: 10-16-2019 End: 97-38-8226Fhrgfzd blood reagent stripRanvir S Judie Work Phone: Start: 67-71-2539Jnkuw count complete auto&auto difrntl wbcRANVIR RATHOREStart: 67-09-9303Mzhhqbojydznf metabolic panelRANVIR RATHOREStart: 77-66-5729Hixc bld gluc mntr dev cleared fda spec home useRANVIR RATHOREStart: 26-31-1515ONUQR METABOLIC PANEL W/ REFLEX TO MG FOR LOW K Muralikrishna Porandla Work Phone: Start: 27-53-7865Acfsb count complete auto&auto difrntl wbcMuralikrishna Porandla Work Phone: Start: 45-03-4070BYTTUW AND OUTPUTRANVIR RATHOREStart: 16-47-9971Chzh bld gluc mntr dev cleared fda spec home useRANVIR RATHOREStart: 23-48-3852Uovqsvf blood reagent stripRANVIR RATHOREStart: 43-85-8565Vxag bld gluc mntr dev cleared fda spec home useRANVIR RATHOREStart: 75-59-2869Ouoheab blood reagent stripRanvir S Judie Work Phone: Start: 80-24-7325Rqhfgtv blood reagent stripRANVIR RATHOREStart: 76-26-7518LVPGEWXO CATHRANVIR RATHOREStart: 38-98-9684HEFEZCS NUTRITION SUPPLEMENTSRANVIR RATHOREStart: 63-20-2802Gys spinal canal lumbar w/o & w/contr matrlRANVIR RATHOREStart: 38-27-3083Jixvbej blood reagent stripRanvir S Judie Work Phone: Start: 10-68-8194Qrr spinal canal lumbar w/o & w/contr matrlMuralikrishna Porandla Work Phone: Start: 91-70-3131Keijcgl blood reagent stripRANVIR RATHOREStart: 68-92-6074Jammlbb blood reagent stripRanvir S Judie Work Phone: Start: 85-12-7333Rpzlz count complete auto&auto difrntl wbcRANVIR RATHOREStart: 76-50-6951Uqqgwdtrvlkqk metabolic panelRANVIR RATHOREStart: 56-58-3175Aoeq bld gluc mntr dev cleared fda spec home useRANVIR RATHOREStart: 38-77-8519XLPZPWBF CATHRANVIR RATHOREStart: 89-79-5508QALIA METABOLIC PANEL W/ REFLEX TO MG FOR LOW KMuralikrishna Porandla Work Phone: Start: 80-32-3285Ndbed count complete auto&auto difrntl wbcMuralikrishna Porandla Work Phone: Start: 30-48-7012PH CONSULT TO IV TEAMRANVIR JUDIE Start: 42-56-2219DNURHEEO OXYGEN THERAPY PROTOCOLRANVIR RATHOREStart: 10-15-2019 Glucose blood reagent stripRANVIR RATHOREStart: 25-64-2870Zgecfzs blood reagent stripRanvir S Judie Work Phone: Start: 71-14-0013Iwiq bld gluc mntr dev cleared fda spec home useRANVIR RATHOREStart: 10-57-5137SQPCKI AND OUTPUTRANVIR JUDIE Start: 59-89-5627Hzqz bld gluc mntr dev cleared fda spec home useRANVIR JUDIE Start: 53-98-6696Kvcgyxw blood reagent stripRANVIR RATHOREStart: 76-54-4154Wutx bld gluc mntr dev cleared fda spec home useRANVIR RATHOREStart: 10-14-2019 Glucose blood reagent stripRanvir S Judie Work Phone: Start: 43-20-3077LFFOHUWH CATHRANVIR RATHOREStart: 52-48-9772Mmpjobp blood reagent stripRanvir S Judie Work Phone: Start: 87-42-8838Kdsyoxb blood reagent stripRANVIR RATHOREStart: 29-74-4835Qsaflzy blood reagent stripRanvir S Judie Work Phone: Start: 88-71-1039Ldtw bld gluc mntr dev cleared fda spec home useRANVIR RATHOREStart: 07-31-4433NKMYKQQX OXYGEN THERAPY PROTOCOL GIOVANNA RATHOREStart: 07-55-9407OVYKXTBA CATHRANVIR RATHOREStart: 10-14-2019 Antibody treponema pallidumRANVIR RATHOREStart: 43-00-0523Rbdar count complete auto&auto difrntl wbcRANVIR RATHOREStart: 76-77-6399Xyaccchjutudx metabolic panelRANVIR RATHOREStart: 65-99-6451Qkgywle blood reagent stripRANVIR JUDIE Start: 38-83-4573Ztrp bld gluc mntr dev cleared fda spec home useRANVIR JUDIE Start: 51-17-7671PLXKE METABOLIC PANEL W/ REFLEX TO MG FOR LOW KMuralikrishna Porandla Work Phone: Start: 24-58-8398Gpqlg count complete auto&auto difrntl wbcMuralikrishna Porandla Work Phone: Start: 10-14-2019T. PALLIDUM ABMuralikrishna Porandla Work Phone: Start: 00-59-7601Szhlauy blood reagent stripRanvir S Judie Work Phone: Start: 46-22-7595UHMHQA AND OUTPUTRANVIR RATHOREStart: 63-05-3671Gack bld gluc mntr dev cleared fda spec home useRANVIR RATHOREStart: 72-97-4891CHDOEZCO CATHRANVIR RATHOREStart: 23-33-5126Ihaqmpy blood reagent stripRANVIR RATHOREStart: 44-76-1607Eafk bld gluc mntr dev cleared fda spec home useRANVIR RATHOREStart: 04-76-9568Cvvyjii blood reagent stripRanvir S Judie Work Phone: Start: 65-20-1272Xxoyvej blood reagent stripRANVIR RATHOREStart: 22-73-0423Rlpwpid blood reagent stripRanvir S Judie Work Phone: Start: 34-55-4563Ukkmn of ammoniaRANVIR RATHOREStart: 64-96-2824Qcwjz gases any combination ph pco2 po2 co2 ssc4IBTMGR RATHOREStart: 13-54-0847AO CONSULT TO IV TEAMRANVIR RATHOREStart: 48-62-2539Dmiicagr mycoplsm GIOVANNA RATHOREStart: 82-34-0720Vgvwctk blood reagent stripRanvir S Judie Work Phone: Start: 22-37-0942Ixdpw of ammoniaDharmakaruna Edara Work Phone: Start: 00-56-8213Jmtel gases any combination ph pco2 po2 co2 fes1Uzuosdqmnqow Edara Work Phone: Start: 93-13-6390Qdjlvawz mycoplsmLuis E Kendrick Work Phone: Start: 54-16-6557Fijz bld gluc mntr dev cleared fda spec home useRANVIR RATHOREStart: 38-34-2748ABRLFWCH OXYGEN THERAPY PROTOCOL GIOVANNA RATHOREStart: 73-15-2031Gmvawwm blood reagent stripRANVIR RATHOREStart: 53-18-3011Cxuop of magnesiumRANVIR RATHOREStart: 13-76-5270Eukzm count complete auto&auto difrntl wbcRANVIR RATHOREStart: 70-78-4832Sdbzuucexrlcg metabolic panelRANVIR RATHOREStart: 02-94-6752Norvjcq blood reagent stripRanvir S Judie Work Phone: start: 06-44-8385Cgtt bld gluc mntr dev cleared fda spec home useRANVIR RATHOREStart: 82-26-5417Hlpad of magnesiumMuralikrishna Porandla Work Phone: Start: 70-44-8390QTROH METABOLIC PANEL W/ REFLEX TO MG FOR LOW KMuralikrishna Porandla Work Phone: Start: 72-56-6323Ijpcg count complete auto&auto difrntl wbcMuralikrishna Porandla Work Phone: Start: 06-63-3995AJIGEN AND OUTPUTRANVIR RATHOREStart: 45-30-9453Okek bld gluc mntr dev cleared fda spec home useRANVIR RATHOREStart: 29-35-1973Wuaku dip stick/tablet reagent auto microscopyRANVIR RATHOREStart: 46-28-9586Zrpbsvk blood reagent stripRANVIR RATHOREStart: 43-78-8335Yvla bld gluc mntr dev cleared fda spec home useRANVIR RATHOREStart: 21-80-7117Mhdsp dip stick/tablet reagent auto microscopyMuralikrishna Porandla Work Phone: Start: 62-01-8192Mdtrjjp blood reagent stripRanvir S Judie Work Phone: Start: 29-62-2139Rxxpcpo blood reagent stripRANVIR RATHOREStart: 40-59-4879ONHW GENERALRANVIR RATHOREStart: 22-92-8571Odrkvwk blood reagent stripRanvir S Judie Work Phone: Start: 16-58-7143KCEQQMM, BLOOD 1RANVIR RATHOREStart: 37-72-8453Aqgnwkw blood reagent stripRANVIR RATHOREStart: 21-26-3165Yrithht blood reagent stripRanvir S Judie Work Phone: Start: 43-92-2913Kef-scan artl braydon abdl/pel/scrot&/rpr orgn comRANVIR RATHOREStart: 84-36-0634Eeto bld gluc mntr dev cleared fda spec home useRANVIR RATHOREStart: 17-82-4685Ptqrotx blood reagent stripRANVIR JUDIE Start: 01-29-3424ZJDTQSAP OXYGEN THERAPY PROTOCOLRANVIR RATHOREStart: 10-12-2019 Dup-scan artl braydon abdl/pel/scrot&/rpr orgn comMuralikrishna Porandla Work Phone: Start: 40-44-2125Oyhbw of aldosteroneRANVIR JUDIE Start: 18-50-2129Lcgtl of magnesiumRANVIR RATHOREStart: 65-89-3897Leqcu of renin GIOVANNA RATHOREStart: 99-60-1235Hyeos count complete auto&auto difrntl wbcRANVIR RATHOREStart: 72-64-2999Jrurdxlxurnco metabolic panelRANVIR RATHOREStart: 53-76-4966Vvpvojv blood reagent stripRanvir S Judie Work Phone: Start: 91-16-6853Pxvha of aldosteroneMuralikrishna Porandla Work Phone: Start: 33-80-4737Kzhmr of magnesiumMuralikrishna Porandla Work Phone: Start: 48-13-7510Tkeym of reninMuralikrishna Porandla Work Phone: Start: 31-26-2037UTRCN METABOLIC PANEL W/ REFLEX TO MG FOR LOW KMuralikrishna Porandla Work Phone: Start: 77-15-3126Kvjfj count complete auto&auto difrntl wbcMuralikrishna Porandla Work Phone: Start: 23-32-1889Jgyg bld gluc mntr dev cleared fda spec home useRANVIR RATHOREStart: 59-20-4129FCCCZU AND OUTPUTRANVIR JUDIE Start: 97-11-1963Wzpi bld gluc mntr dev cleared fda spec home useRANVIR JUDIE Start: 93-40-0253Mhncphcjhl exam chest single viewRANVIR RATHOREStart: 53-23-1741ID CONSULT TO INFECTIOUS DISEASESRANVIR RATHOREStart: 86-89-4738Xjxef source albumin quantitative each specimenRANVIR RATHOREStart: 10-11-2019 Radiologic exam chest single viewJovany Quezada Work Phone: Start: 89-05-2167Acmbrma blood reagent stripRANVIR RATHOREStart: 60-05-3192Qvym bld gluc mntr dev cleared fda spec home useRANVIR RATHOREStart: 84-08-2844YuuhuhwofbchtPHVQKN RATHOREStart: 89-24-8454Dyqyjrg blood reagent stripRanvir S Judie Work Phone: Start: 77-78-6956Aabqkqq blood reagent stripRanvir S Judie Work Phone: Start: 93-70-8719RtloagacndtxhTjpreyjxijgvl Eduardojovita Work Phone: Start: 53-17-8268Zxn brain brain stem w/o w/contrast materialRANVIR RATHOREStart: 12-86-0952Yicsgsp blood reagent stripRANVIR JUDIE Start: 35-22-8115Uvt brain brain stem w/o w/contrast materialSantibartolo NolandJethro Work Phone: Start: 43-29-2709Ffiavvs blood reagent stripRanvir S Judie Work Phone: Start: 05-74-7327Wfub bld gluc mntr dev cleared fda spec home useRANVIR RATHOREStart: 14-42-7326Xwacrql blood reagent stripRANVIR RATHOREStart: 98-30-3833KHGVKLWK OXYGEN THERAPY PROTOCOLRANVIR RATHOREStart: 54-95-0455Tcslewx blood reagent stripRanvir S Judie Work Phone: Start: 24-62-6782Rgouj count complete auto&auto difrntl wbcRANVIR RATHOREStart: 34-34-2270Jvqhccwedklgx metabolic panelRANVIR RATHOREStart: 47-88-1652Wsjr bld gluc mntr dev cleared fda spec home useRANVIR RATHOREStart: 35-68-9996PRQRK METABOLIC PANEL W/ REFLEX TO MG FOR LOW K Muralikrishna Porandla Work Phone: Start: 83-86-8845Xabre count complete auto&auto difrntl wbcMuralikshamika Morris Work Phone: Start: 06-51-9363XPMDXR AND OUTPUTRANVIR RATHOREStart: 73-08-3669Ctirwid blood reagent stripRANVIR RATHOREStart: 02-98-8570Dlih bld gluc mntr dev cleared fda spec home useRANVIR RATHOREStart: 56-10-6382Utlrkch blood reagent stripRanvir S Judie Work Phone: Start: 95-81-9597Wllkz sacrum & coccyx minimum 2 views GIOVANNA RATHOREStart: 74-28-9940Dpyji spine lumbosacral 2/3 viewsRANVIR JUDIE Start: 05-96-8559Vhbwyfl blood reagent stripRANVIR RATHOREStart: 39-66-7780Lrjj bld gluc mntr dev cleared fda spec home useRANVIR RATHOREStart: 27-90-8663Iklsw sacrum & coccyx minimum 2 viewsDharmakaruna Yoavara Work Phone: Start: 78-29-3268Wwltv spine lumbosacral 2/3 views Dharmakaphani Casonara Work Phone: Start: 43-75-1702Bwojggn blood reagent stripRanvir S Judie Work Phone: Start: 07-54-0584Cktbi of lactateRANVIR RATHOREStart: 10-31-8941F-reactive proteinRANVIR RATHOREStart: 80-98-8115Hijgtfpkxybbx (pct) GIOVANNA RATHOREStart: 11-38-4290Lxipqdgfrfhhr rate rbc automatedRANVIR JUDIE Start: 94-68-0065Nz head/brain w/o contrast materialRANVIR RATHOREStart: 36-30-2878Jm angiography head w/contrast/noncontrastRANVIR RATHOREStart: 36-80-5363Qmwwj of lactateLuis Manish Erazo Work Phone: Start: 03-08-9084Z-reactive proteinLuis Manish Erazo Work Phone: Start: 52-41-1498Dnragshlzbpht (pct)Alfonso Manish Erazo Work Phone: Start: 36-18-4887Bvjnomuufwgxu rate rbc automatedLuamanda Erazo Work Phone: Start: 49-51-4956Nh head/brain w/o contrast material Jimmy Chirri Work Phone: Start: 48-05-6636Xm angiography neck w/contrast/noncontrastLuis Manish Erazo Work Phone: Start: 23-42-0178Wjcthqv blood reagent stripRANVIR RATHOREStart: 35-64-5287IG CONSULT TO NEUROLOGYRANVIR RATHOREStart: 10-10-2019 Glucose blood reagent stripRanvir S Judie Work Phone: Start: 59-16-4766MFEHDWANSAZZF NURSING CARE ORDER (SPECIFY)GIOVANNA RATHOREStart: 05-76-0832Dfjj bld gluc mntr dev cleared fda spec home useRANVIR RATHOREStart: 19-26-7326MVWFXQIK OXYGEN THERAPY PROTOCOLRANVIR RATHOREStart: 09-24-8745Rbtxt of magnesiumRANVIR RATHOREStart: 37-33-3462Lgaai of thyroid stimulating hormone tshRANVIR RATHOREStart: 69-36-7652Bkyzj count complete auto&auto difrntl wbcRANVIR RATHOREStart: 93-10-8987Vozgbeukpyalm metabolic panelRANVIR RATHOREStart: 96-98-1212Crflw of magnesiumMuralikrishna Porandla Work Phone: Start: 61-89-3596Gznqp of thyroid stimulating hormone tshMuralikrishna Porandla Work Phone: Start: 32-43-1861JRWSZ METABOLIC PANEL W/ REFLEX TO MG FOR LOW KMuralikrishna Porandla Work Phone: Start: 19-72-4920Mygse count complete auto&auto difrntl wbcMuralikrishna Porandla Work Phone: Start: 57-79-9654Kuus bld gluc mntr dev cleared fda spec home useRANVIR RATHOREStart: 45-60-1782BBCJB WEIGHTSRANVIR RATHOREStart: 96-24-7800NLWWQM AND OUTPUTRANVIR RATHOREStart: 87-00-3745Lwcr bld gluc mntr dev cleared fda spec home useRANVIR RATHOREStart: 39-61-7168Ldhezrpurq exam abdomen 1 viewRANVIR RATHOREStart: 63-56-6420Tmyi bld gluc mntr dev cleared fda spec home useRANVIR RATHOREStart: 10-69-9970Uziimgt blood reagent stripRANVIR JUDIE Start: 13-62-6731Ctnogrhzse exam abdomen 1 viewMuralikshamika Morris Work Phone: Start: 23-84-5772Qomkazh blood reagent stripRanvir S Judie Work Phone: Start: 38-83-1225YOIGS SIGNSRANVIR RATHOREStart: 63-79-3292Ej abdominal real time w/image limitedRANVIR RATHOREStart: 10-09-2019 MISCELLANEOUS NURSING CARE ORDER (SPECIFY)GIOVANNA RATHOREStart: 13-51-4658Lldw bld gluc mntr dev cleared [facility] spec home useRANVIR RATHOREStart: 30-55-2132Eo abdominal real time w/image limitedMatt Mares Work Phone: Start: 74-40-0783DERKGDL HEELS OFF OF BEDRANVIR RATHOREStart: 34-14-0391TYRQ OF BED 60 DEGREES OR LESSRANVIR RATHOREStart: 74-37-4524QHMXFVW COMMUNICATIONRANVIR RATHOREStart: 38-19-6002ZFGO PATIENTRANVIR RATHOREStart: 68-14-0978WHKTEE AND OUTPUTRANVIR RATHOREStart: 53-32-6853ZV EVAL AND TREATRANVIR RATHOREStart: 05-89-4806VI EVAL AND TREATRANVIR RATHOREStart: 79-13-0416PFJK CODERANVIR RATHOREStart: 80-91-7128PSOACGTD OXYGEN THERAPY PROTOCOLRANVIR RATHOREStart: 53-63-0277UHIGJB PHYSICIAN (SPECIFY)GIOVANNA JUDIE Start: 09-47-9945GXWYQG FOR NO MECHANICAL VTE PROPHYLAXISRANVIR RATHOREStart: 37-20-3446PCFZD SIGNSRANVIR RATHOREStart: 83-72-9431Nyasv dip stick/tablet reagent auto microscopyRANVIR RATHOREStart: 60-44-9321Yjwrv dip stick/tablet rgnt auto w/o microscopyRANVIR RATHOREStart: 08-69-9385Roawb dip stick/tablet reagent auto microscopyMuralikrishna Porandla Work Phone: Start: 57-25-8427Qbwja dip stick/tablet rgnt auto w/o microscopyMuralikrishna Porandla Work Phone: Start: 27-26-1278VBPMBJV STATUS (FROM ED OR OR/PROCEDURAL)GIOVANNA RATHOREStart: 28-07-1745ZR CONSULT TO INTERNAL MEDICINE GIOVANNA RATHOREStart: 49-65-1300Hi thorax w/contrast materialRANVIR RATHOREStart: 84-63-4210Svhua of troponin quantitativeRANVIR RATHOREStart: 36-41-7048Ekfjzy bodies serum quantitativeRANVIR RATHOREStart: 18-12-1133GPBHI-19RANVIR JUDIE Start: 98-64-9105Sna routine ecg w/least 12 lds w/i&rRANVIR RATHOREStart: 52-70-7729QVG REPORTRANVIR RATHOREStart: 11-56-7083Bqmhu of lipaseRANVIR JUDIE Start: 67-47-4045Bfama count complete auto&auto difrntl wbcRANVIR RATHOREStart: 73-82-2985Zsttktxfcrhbk metabolic panelRANVIR RATHOREStart: 04-95-7255Lugsaugoii glycosylated z9pJTAYPW RATHOREStart: 63-69-4115Spcbd panelRANVIR RATHOREStart: 22-62-9599Ey thorax w/contrast materialJoel Melton Work Phone: Start: 74-26-4281Seitu of troponin Cami Melton Work Phone: Start: 25-54-4736Moulik bodies serum quantitative Joel Melton Work Phone: Start: 76-10-4719GS CONSULT TO VASCULAR SURGERYRANVIR RATHOREStart: 97-80-8150CZXUX-19Julie Ramesh Work Phone: Start: 03-86-2806Cmu routine ecg w/least 12 lds trcg only w/o i&rTgio Lux Plumbee Work Phone: Start: 13-02-8521NVK REPORTHpf ScanningStart: 65-59-0783Wzgvt of lipaseTgio Lux Plumbee Work Phone: Start: 06-30-0454Spuwq of troponin quantitativeTgio Lux Plumbee Work Phone: Start: 16-24-2250Tvxtz count complete auto&auto difrntl wbcTgio Lux Plumbee Work Phone: Start: 22-46-4807Qzoqiihevvemz metabolic panelTgio Lux Plumbee Work Phone: Start: 77-72-1452Nzvstjsvss glycosylated u0kNkcpdw J Plumbee Work Phone: Start: 19-34-8651Dxqgb panelTgio Lux Plumbee Work Phone: Start: 10-03-2617RIZQFDEUQ PATIENTDOUGLAS HOYStart: 07-39-4023MINHBQTZ OXYGEN THERAPY PROTOCOLDOUGLAS HOYStart: 25-33-3471SMXLP METABOLIC PANEL W/ REFLEX TO MG FOR LOW KDOUGLAS HOYStart: 28-96-5972JNC WITH AUTO DIFFERENTIALDOUGLAS HOYStart: 81-23-8665DWWXTAYTVAVTSPR HOYStart: 36-22-2276FFMLZHACZJUJINO HOYStart: 79-53-8826EQTSP WEIGHTSDOUGLAS HOYStart: 87-23-5719IXTLQE AND OUTPUTDOUGLAS HOYStart: 89-02-2895KDAPYTWZGVSKPJIIAT HOY Start: 50-90-4618QNAHZTHK TOTALDOUGLAS HOYStart: 10-43-6681ERSLITBCNZGK HOY Start: 18-72-8634AIWHUKAKGUECDQW HOYStart: 79-99-3824WODLFIMZQJGRP URINEDOUGLAS HOYStart: 88-25-3851IFBYWFJH PATIENTDOUGLAS HOYStart: 64-70-4038LDPVS METABOLIC PANEL W/ REFLEX TO MG FOR LOW KDOUGLAS HOYStart: 86-44-6851UQJ WITH AUTO DIFFERENTIALDOUGLAS HOYStart: 72-84-7309Gckk tthrc r-t 2d w/wom-mode compl spec&colr dDOUGLAS HOYStart: 08-38-1354CXMN CODEDOUGLAS HOYStart: 06-28-2017 INITIATE OXYGEN THERAPY PROTOCOLDOUGLAS HOYStart: 12-70-1755MQMVDQ AND OUTPUT VELASQUEZ HOYStart: 88-34-5228GP CONSULT TO SOCIAL WORKDOUGLAS HOYStart: 88-15-6938DF EVAL AND TREATDOUGLAS HOYStart: 63-42-4649RO EVAL AND TREATDOUGLAS HOYStart: 28-44-3332HDKALX FOR NO MECHANICAL VTE PROPHYLAXISDOUGLAS HOYStart: 97-27-9041PIGTCTO CESSATION EDUCATIONDOUGLAS HOYStart: 41-60-5093ZZWFK SIGNS VELASQUEZ HOYStart: 89-98-4430CUMF CARDIACDOUGLAS HOYStart: 75-23-9960YKCYFZ PHYSICIAN (SPECIFY)VELASQUEZ HOYStart: 66-70-2934KSEOJ INTERMITTENT PNEUMATIC COMPRESSION DEVICEDOUGLAS HOYStart: 94-14-6509VDLPIM FOR NO CHEMICAL VTE PROPHYLAXISDOUGLAS HOYStart: 49-68-8493LKVDTTFLF MONITORINGDOUGLAS HOYStart: 09-74-5701PXLIJ SIGNSDOUGLAS HOYStart: 36-26-2671LURICSM STATUS (FROM ED OR OR/PROCEDURAL)VELASUQEZ HOYStart: 29-17-1069KKENHQNSBAYHCFP HOYStart: 48-77-5490TM CONSULT TO INTERNAL MEDICINEDOUGLAS HOYStart: 69-79-1712ZRX 12-LEADDOUGLAS HOY Start: 98-86-4772ZNCGD METABOLIC PANELDOUGLAS HOYStart: 76-07-2953FQS WITH AUTO DIFFERENTIALDOUGLAS HOYStart: 73-66-3376FXIUZEFWQNJRIQS HOYStart: 78-60-8679MXG WITH REFLEXDOUGLAS HOYStart: 24-30-4843Oyiffqlsjw exam chest 2 viewsDOUGLAS HOY Start: 25-86-2492WMHYQ RT REFLEX TO CULTUREDOUGLAS HOYStart: 19-78-0892FFXZGP PERIPHERAL IVDOUGLAS HOY Plan of Treatment DateCare ActivityDetailAuthorStart: 08-24-2024 End: 18-65-5791Dyvoxib encounter dzacboire61/01/2025 4:00 PM EDT Office Visit [facility] [address] [place] [phone] Curry Red MD [address] [place] [address] [facility]: 02-[facility]-2024 End: 81-03-8876Wmtofga encounter wawqqdxvn20/13/2024 1:10 PM EST Office Visit [facility] [address] [place] [phone] Iva Ta PA [address] [place] [address] [facility]: 01-16-2024 End: 23-68-2527Ninwdgq encounter akkbmhfvj79/22/2024 11:50 AM EST Office Visit [facility] [address] [place] [phone] Iva Ta PA [address] [place] [phone] ArrivedNOMS [facility] DERMComment on above:ArrivedStart: 28-92-1301Lsbepgeds vaccinationInfluenza Vaccine (#1)[facility] HealthcareStart: 02-41-4737Xuhnj X-ray of right handXR hand RT min 3V*[facility]: 66-34-7488BH Hand - right GE 3 ViewsSt. Anthony's Hospitaltart: 58-21-3095Ivfaeumugwlj Vaccine: 65+ Years (2 of 2 - PCV) Pneumococcal Vaccine: 65+ Years (2 of 2 - PCV)[facility] HealthcareStart: 10-14-2020 Creatinine measurementCreatinine [facility], [place]Start: 10-14-2020 Potassium monitoringPotassium monitoringUniversity Hospitals Beachwood [facility]: 10-26-2019 Influenza vaccinationFlu vaccine (#1)[facility]: 72-46-7048Jjwhqz Wellness Visit (AWV)Annual Wellness Visit (AWV)[facility]: 89-99-7935Yhxiyscqeoxw 65+ years Vaccine (1 of 1 - PPSV23)Pneumococcal 65+ years Vaccine (1 of 1 - PPSV23)[facility]: 78-86-9650Xcjdrtrgw for osteoporosisDEXA (modify frequency per FRAX score)[facility]: 80-21-0557Eghneejd Vaccine (1 of 2)Shingles Vaccine (1 of 2)[place] Start: 32-62-7330JFmZ/Tdap/Td vaccine (1 - Tdap)DTaP/Tdap/Td vaccine (1 - Tdap) [place] End: 91-44-9080PLPLCOY, CSFALBUMIN, CSF Lab Routine One Time for 1 Occurrences starting 10/11/2019 until 10/11/2019[place], [place]Comment on above:One Time for 1 Occurrences starting 10/11/2019 until 10/11/2019Basic Metabolic Panel w/ Reflex to MGBasic Metabolic Panel w/ Reflex to MG Lab Routine Daily until discontinued starting 10/10/2019, 7 completed[place], [place]Comment on above:Daily until discontinued starting 10/10/2019, 7 completedCBC auto differentialCBC auto differential Lab Routine Daily until discontinued starting 10/10/2019, 7 completed[place], [place]Comment on above:Daily until discontinued starting 10/10/2019, 7 completedCulture, Blood [place] End: 07-36-3278Grnjxom, UrineCulture, Urine Microbiology Routine One Time for 1 Occurrences starting 10/16/2019 until 10/16/2019[place], [place]Comal[place] on above:One Time for 1 Occurrences starting 10/16/2019 until 10/16/2019Culture, UrineCulture, Urine Microbiology [employer] Label Print 10/16/2019 1:08 PM EDT [facility], KYNebulizer therapyHHN Treatment Respiratory Care Routine As Needed until discontinued starting 10/11/2019[facility], [place]Comment on above:As Needed until discontinued starting 10/11/2019Oxygen therapy [Minimum Data Set]Initiate Oxygen Therapy Protocol Respiratory Care Routine Daily until discontinued starting 10/09/2019[facility], [place]Comment on above:Daily until discontinued starting 10/09/2019POCT GlucoseMercy Health Clermont Hospital, KYComment on above:As Needed until discontinued starting 10/09/20194X Daily (AC & HS) until discontinued starting 10/09/2019 Immunizations Immunization DateImmunizationNotesCare AspksbgpLvlkqdil28-72-6988KPELV-46 mRNA- 1273 (Moderna)MD Velasquez Bunch Work Phone: [facility]02-26-2021COVID-19 mRNA-1273 (Moderna)MD Velasquez Bunch Work Phone: [facility]01-29-2021COVID-19 mRNA-1273 (Moderna)MD Velasquez Bunch Work Phone: [facility]10-05-2020influenza virus vaccine, unspecified formulationOhiohealth O'Bleness Hospitale [facility] KIMBERLY Work Phone: [facility] Payers DatePayer CategoryPayerPolicy [id number] (Managed Care) [id number] [id number] [id number] [id number] 1960Self-pay [id number] 2..[id number] 2..840.1.251231.3.57[id number] 2.16.840.1.615797.3.57[id number] 2.16.840.1.313007.3.57[id number] 2.16.840.1.619834.3.57[id number] 2.16.840.1.368661.3.57[id number] 2.16.840.1.693276.3.57[id number] 2.16.840.1.72[id number] 2.16.840.1.699810.3.579.2.531 Social History DateTypeDetailFacilityStart: 88-00-7803Cbndnhd smoking status NHISNever smoker [place], [place]Start: 10-09-2019 End: 08-92-1026Owepytg use and exposureNever usedLe[place], [place]St[place]: 15-91-1852Gjxyyeb intakeCurrent non-drinker of alcohol (finding)[facility]: 18-13-8864Fbk Assigned At BirthNot on [place] Exposure to SARS-CoV-2 (event)Not sureUniversity Hospitals Beachwood Medical Center: 93-75-1100Bff Assigned At BirthMcCullough-Hyde [facility] Hospitaltart: 08-23-2022 End: 47-42-9261Aorecci smoking status NHISEx-smoker (finding)[facility] HospitalHistory of tobacco useCurrent smokerNOMS HealthcareHistory of tobacco useCigarette SmokerNOMS HealthcareStart: 04-17-2023 End: 49-28-6675Znpodlp of Social functionNOMS HealthcareStart: 04-17-2023 End: 34-86-0250Lhdysox use panelNOMS HealthcareStart: 70-95-5676Npsgexg Comment Last smoked: 10-15 yearsNO[facility] Clinical Notes 05-18-2020 to 08-30-2024 Note Date & NypxHtiyDuubinvf28-04-4067 NoteRECEIVED REFERRAL FOR PATIENT FOR GALLBLADDER COLIC, CALLED PATIENT WHO STATED SHE IS GOING TO TALK TO PCP AND WOULD LIKE TO HAVE THIS DONE CLOSER TO HOME. [facility]07-04-2025 NoteUnSycam[facility]07-04-2025 NoteUnSycamore [facility] Center07-04-2025 Note [facility]06-25-2025 NoteSpoke to patient regarding vascular procedure- Patient is scheduled for 08/26/24 @ 1pm with an arrival time of 11am- preop labs entered. Patient educated on medication holds and lab work needing completed prior to OR. Patient verbalized understanding.[facility]06-12-2025 NoteUnSycamore Medical Center06-11-2025 NoteUnSycamore [facility] 08-04-2024 NoteUnSycamore [facility] Center04-25-2025 NoteUnSycamore [facility] Center04-14-2025 NoteUnSycam[facility] 05-20-2024 History of Present illness Narrative* Curry Red MD - 05/20/2024 4:00 PM EDT Images from the original note were not included. Follow up Diagnosis: Atopic Dermatitis Location: generalized Last visit: 01/16/2024 Symptoms: itchy and joint pain Status: improvement with joint pain - has returned to baseline level of joint pain after stopping dupixent Treatments tried and failed: Dupixent - had to stop due to joint pain Current treatment: TAC 0.1 % bid (tried > 90 days) course of prednisone 10 mg every day x 7 days-some improvement after taking steroid, patient reported she really does not like to take prednisonetoo often. Patient reported she never received Brenda and hydroxyzine. Patient reported she was hospitalized for a bulging Aorta and now has patches on her Aorta and stent to her kidney. Adbry was ordered at last visit and PA was approved but spoke with staff 02/26/24 and declined startingAdbry at that time, reported the patient was doing was doing ok with her atopic dermatitis and did not want to add any medications at that time. All pertinent medical history, medications, and allergies were reviewed. General Exam: alert, oriented to person, place, and time, normal affect, well appearing uses a cane Accompanied by spouse A focused exam completed based on patient [...] but could not tolerate the joint pain. Start Adbry Dosing will be loading dose of 600 mg given SQ by two 300 mg injections into different sites, followed by 300 mg SQ injection every 2 weeks, discussed if any increased joint pain occurs recommend patient contact office. Patient declined injection training. Reviewed medication will need to be refrigerated. Medication will be sent to [facility], contact information provided to patient, instructed patient if medication cost is too high do not fill medication and contact office. Biologiccoordinator's contact information provided to patient. Will try to Avoid prednisone. Continue TAC 0.1% bid as needed. Return to clinic in 3 months Related Medications triamcinolone (Kenalog) 0.1 % cream Apply to affected areas, up to twice a day when flared, do not use one the face, groin, or underarms, 30 day supply 2. High risk medication use Next Visit: 3 month follow up documented in this encounterCameron Regional Medical CenterMkwkrephcb47-01-1473 NotePatient called technical proposal writer direct line ([phone]), however calling to reach [facility] Neph[facility]. Director Of Diagnostic Imaging provided patient with phone number to reach Nephrology ([phone]).[facility]03-18-2025 NoteUnSycamore Medical Center02-07-2025 NoteUnSycam[facility] 03-26-2024 NoteUnSycamore Medical Center01-14-2025 NoteUnSycamore Medical Center12-23-2024 NoteUnSycam[facility] 02-12-2024 NoteUnSycamore Medical Center12-19-2024 NoteGre[facility]12-19-2024 NoteOccupational Therapy Name: Shayy Maynard Date of : 1945 Today's Date: 02/12/24 Pt is unable to be seen for therapy at this time secondary to Discharging !@ 1030 Check No Charge Time attempted: 0957UnSycamore Medical Center12-18-2024 NoteGreene [facility]12-18-2024 NoteGre[facility] 02-11-2024 NoteGre[facility]12-18-2024 NoteGre[facility]12-17-2024 NoteGre[facility] 02-10-2024 NoteGre[facility]12-17-2024 NoteGre[facility]12-17-2024 NoteGre[facility] 02-10-2024 NoteGre[facility]12-17-2024 NoteGre[facility]12-17-2024 NoteGre[facility] 02-10-2024 NoteGre[facility]12-16-2024 NoteGre[facility]12-16-2024 NoteGre[facility] 02-09-2024 NoteGre[facility]12-16-2024 NoteGre[facility]12-16-2024 NoteGre[facility] 02-08-2024 NoteGre[facility]12-15-2024 NoteGre[facility]12-15-2024 NoteGre[facility] 02-08-2024 NoteGre[facility]12-15-2024 NoteGre[facility]12-14-2024 NoteGre[facility] 02-07-2024 NoteGre[facility]12-14-2024 NoteGre[facility]12-13-2024 NoteGre[facility] 02-06-2024 NoteGre[facility]12-13-2024 NoteGre[facility]12-13-2024 NoteGre[facility] 02-06-2024 NoteGre[facility]12-13-2024 NoteGre[facility]12-12-2024 NoteGre[facility] 02-05-2024 NoteGre[facility]12-12-2024 NoteGre[facility]12-12-2024 NoteGre[facility] 02-05-2024 NoteGre[facility]12-11-2024 NoteGre[facility]12-11-2024 NoteGre[facility] 02-04-2024 NoteBrief follow up with RN. No family at bedside. Patient is sleeping. Patient is scheduled for angiogram today. Once procedure/test completed and patient medically cleared therapy will return for eval and recommendations. SW following.[facility]12-11-2024 NoteGre[facility]12-11-2024 NoteGre[facility]12-11-2024 Note [facility]12-11-2024 NoteGre[facility]12-10-2024 NoteGre[facility]12-10-2024 Note [facility]12-10-2024 NoteGre[facility]12-10-2024 NoteOccupational Therapy Name: Shayy Maynard Date of : 1945 Today's Date: 02/03/24 Pt is unable to be seen for therapy at this time secondary to Medically unstable today per nsg . Check No Charge Time attempted: 1113UnSycamore Medical Center12-10-2024 NoteGreene [facility]12-10-2024 NoteGre[facility] 02-03-2024 NoteGre[facility]12-10-2024 NoteGre[facility]12-09-2024 NoteCase was discussed with the KEN on 02/02/2024. I agree with the history, physical, assessment, and plan of care. I discussed the findings and therapeutic plan. I agree with the documentation, except for any updates below. Daniela Van MDUnSycamore Medical Center12-09-2024 NoteGreene [facility]12-07-2024 NoteGre[facility] 01-31-2024 NoteGre[facility]12-07-2024 NoteUnSycamore Medical Center12-06-2024 NoteGre[facility] 01-30-2024 NoteGre[facility]12-06-2024 NoteGre[facility]12-06-2024 NoteGre[facility] 01-30-2024 NoteGre[facility]12-06-2024 NoteGre[facility]12-05-2024 NoteGre[facility] 01-29-2024 NoteGre[facility]12-05-2024 NoteGre[facility]12-05-2024 NoteGre[facility] 01-29-2024 NoteGre[facility]12-04-2024 [id number]: PEDAL PULSES: PRE PROCEDURE RIGHT: PT/DOPPLER; DP/DOPPLER LEFT: PT/DOPPLER; DP/DOPPLERUnSycamore Medical Center12-04-2024 Note 1701: FAMILY UPDATED ON PROGRESS OF PROCEDUREGreene Memorial Hospital 01-28-2024 NoteGreene [facility] Hospital12-04-2024 NoteGre[facility]12-04-2024 NotePeripheral IV Date/Time: 01/28/2024 4:39 PM Inserted by: Rick Brown MD Placement Needle size: 14 G Laterality: right Location: hand Local anesthetic: none Site prep: alcohol Technique: anatomical landmarks Attempts: 2[facility]12-04-2024 NoteGre[facility]12-04-2024 NoteGre[facility] 01-28-2024 NoteGreene [facility] Hospital12-04-2024 NotePhysical Therapy Planned endovascular AAA repair today per RN. Will defer evaluation at this time and follow up post-operatively as appropriate. Peter Cartagena PT, DPTUnSycamore Medical Center12-04-2024 Note Occupational Therapy Name: Shayy Maynard Date of : 1945 Today's Date: 01/28/24 Pt is unable to be seen for therapy at this time secondary to planned AAA sx today/nsg request to hold . Check No Charge Time attempted: 730Un[facility]12-[facility]-2024 NoteCase was discussed with the KEN on 01/27/2024. I agree with the history, physical, assessment, and plan of care. I discussed the findings and therapeutic plan. I agree with the documentation, except for any updates below. Scarlett Sharpe MDUnSycamore Medical Center12-03-2024 NoteUnSycamore Medical Center12-03-2024 NoteUnSycamore [facility] Center 01-16-2024 History of Present illness Narrative* KIMBERLY De Jesus - 01/16/2024 11:50 AM EST Images from the original note were not included. Rash Location: generalized Duration: weeks Severity: moderate Quality: itchy Current treatments: Gold Domínguez itch relief cream. Works for about 1 hour then the itch starts back up. Patient unable to sleep longer than a couple hours at a time. Established patient of Curyr Red MD All pertinent medical history, medications, [...] for her to use her current dose ofPRN prednisone 10 mg consistently for 7 days, and then go back to PRN for her joint pain. Will alsosend Triamcinolone cream 0.1% for the patient to [...] two 300 mg injections into different sites, followedby 300 mg injection every 2 weeks. Return [...] Next Visit: 4-6 weeks documented in this encounterCameron [facility] Medical [id number] NoteGreene [facility]10-11-2024 NoteUnSycamore Medical Center10-08-2024 Note amiUnSycamore Medical Center10-08-2024 NoteGreene [facility] Hospital04-22-2021 Note [id number]:127[facility] 06-15-2020 NoteCystoscopy with Urethral Dilation ? Voiding after the procedure: there [...] if you have a fever over 100 degreesMercy Health Urbana Hospital03-25-2021 [id number]:127[facility]03-25-2021 NoteCystoscopy with Urethral Dilation ? Voiding after the procedure: there [...] if you have a fever over 100 degreesMercy Health Urbana HospitalEvaluation note* Diagnosis Onset Date Resolution Status Trigger finger, right middle finger acuteTrigger finger, right ring fingerShelby [facility] Hospital Work Phone: Evaluation note* Diagnosis Other atopic dermatitis- Primary documented in this encounter [facility] HealthcareEvaluation note* Diagnosis Other atopic dermatitis- Primary High risk medication use documented in this encounter [facility] Summary Purpose Family History No Family History Records Found Relationship Condition Age at Onset Recorded Date/T janki father Malignant neoplasm of lung Unknown Not SpecifiedMyocardial infarctionUnknown Advance Directives No Advanced Directives Records FoundDocuments on File TypeDate RecordedPatient RepresentativeExplanationACP-Advance DirectiveACP-Power of AttorneyCode StatusDate ActivatedDate InactivatedCommentsFull Code10/09/2019 12:27 PMFull Code06/28/2017 8:51 AM06/29/2017 4:56 PMFull Code5/06/2017 1:26 AM 06/28/2017 8:50 AM Advance Directive Response Recorded Date/ Time Advance Directives No March 14, 2023 3:07pm Advance Directive Response Recorded Date/ Time Advance Directives No March 2:38pm Discharge Instructions * Discharge Instr - MARISOL* Tami Ni RN - 10/13/2019 12:11 PM EDT Continuity of Care Form Patient Name: Shayy Maynard : 1945 Admit date: 10/09/2019 Discharge date: 10/16/2019 Code Status Order: Full Code Advance Directives: Admitting Physician: Giovanna Rodrigues MD PCP: Velasquez Bunch MD Discharging Nurse: [facility] Unit/Room#: Discharging Unit Phone Number: Emergency Contact: Extended Emergency Contact Information Primary Emergency Contact: [facility] Relation: Spouse Past Surgical History: Past [...] Assisted Dressing Assisted Toileting Assisted Feeding Assisted Silver Recovery Operator Independent Med Delivery whole Wound Care Documentation [...] NOT a DME order): n/a Other Treatments: custodial, home health aide services Patient's personal belongings (please select all that are sent with patient): patient has all belongings RN SIGNATURE: CASE MANAGEMENT/SOCIAL WORK SECTION Inpatient Status Date: 10-09-2019 Readmission Risk Assessment Score: Readmission Risk Risk of Unplanned Readmission: 12 Discharging to Facility/ Agency Name: [facility] Address: Phone: Fax: Dialysis Facility (if applicable) Name: Address: Dialysis Schedule: Phone: Fax: [facility]/[address] Sql Developer signature: EDT ICIAN SECTION Prognosis: Fair Condition at Discharge: Stable Rehab Potential (if transferring to Rehab): Fair Recommended Labs or Other Treatments After Discharge: BP checks daily morning and evening, keep a note and bring it to your primary care physician. Physician Certification: I certify the above information and transfer of Shayy Maynard is necessary for the continuing treatment [...] size monitoring with PCP F/u urologist at [place] in 1 week for lowe and void trial Take docusate 100 mg daily and miralax 17 g daily. documented in this encounter History of Present Illness * Tami Ni RN - 10/16/2019 5:51 PM EDT Director Of Diagnostic Imaging discharged patient @ 1745 by wheelchair off unit with . Director Of Diagnostic Imaging went over all discharge paperwork and patient [...] or concerns. Thank you * Willie Garcia FUNDRAISING MANAGER - DESIGN STUDIO CONSULTANT - 10/16/2019 12:40 PM EDT Neurology Nurse [...] & neck pain has resolved completely. HPI: Shayy Maynard is a 74 y.o. female with H/O HTN, HLD, COPD, uterine cancer s/p hysterectomy, who was admitted as a transfer from [facility] 10/09/2019 where she presented with gradually worsening [...] (H) 10/09/2019 Lab Results Component Value Date VIKASH 4.6 10/09/2019 T pallidum Negative DIAGNOSTIC DATA: [...] to ensure the accuracy of this automated gre tutor, some errors in gre tutor may have occurred. * Bruce Pelletier MD - 10/16/2019 11:07 AM EDT [facility] Internal Medicine Teaching Residency Program Inpatient Daily Progress Note Patient: Shayy Maynard Date of : 1945 Acct: [id number] Room: Admit date: 10/09/2019 Today's date: 10/16/19 [...] of COPD, primary hypertension was transferred from [facility] for management of infrarenal abdominal aortic aneurysm and for vascular consultation. States she started having lower back pain since . Describes the pain as constant, sharp, 10out of 10 in intensity associated with nausea. Patient went to the emergency department at [facility] to have hypertensive emergency with systolics above 200 and d-dimer was elevated. CT abdomen was done which showed 3.5 infrarenal aortic aneurysm, started on Cardene drip and pain medications we re given. Patient was transferred to [facility] found to be hypoxic in upper 80s, [...] Q4H PRN hydrALAZINE, 10 mg, Q6H PRN mccwsvqpeq-vxysawdkhvtin-lyozukvb, 1 tablet, Q4H PRN sodium chloride flush, [...] Dwayne Hanson MD Internal Medicine Resident, PGY-1 [facility]; [place], [place] 10/16/2019, 11:07 AM I have discussed the care of Shayy Maynard , including pertinent history and exam [...] over time. DC Planning Electronically signed by Bruce Pelletier MD * Alfonso Kendrick MD - 10/16/2019 9:31 AM EDT [facility] - Progress Note Today's Date and Time: [...] culture. Medical Decision Making/Summary/Discussion:10/16/2019 Infection Control Recommendations Roby Precautions Antimicrobial Stewardship Recommendations Discontinuation of therapy Coordination of Outpatient Care: Estimated Length of IV antimicrobials:None Patient will need Midline Catheter Insertion: no Patient will need PICC line Insertion:no Patient will need: Home IV , Infusion Center, SNF, LTAC:TBD Patient will need outpatient wound care:no Chief complaint/reason for consultation: Fever, headache-concern for meningitis History of Present Illness: Shayy Maynard is a 74 y.o.-year-old female who was initially admitted on 10/09/2019. Patient seen at the request of . INITIAL HISTORY: Patient transferred from [facility] on 10-09-19 because of low back pain and findings of an infrarenal abdominal aortic aneurysm. Developed onset of back pain on 10-07-19, associated with nausea. She was evaluated at [facility] and found to have a hypertensive emergency with systolic pressures over [address] showed a 3.5 cm infrarenal aortic aneurysm. Her BP was controlled with Cardene drip and the patient was transferred to [facility]. At [facility] patient had signs of hypoxia, [...] file Gets together: Not on file Attends yarsani service: Not on file Active member of [...] Initial FINDINGS: CTA NECK: AORTIC ARCH/ARCH VESSELS: Diwi-dp-vvigukdm atherosclerotic plaque at the arch arch and [...] No acute pulmonary process. Emphysema. Medical Decision Bibrac-Iiqvcxxg-Dmesp: 10/15/2019 12:10 AM - Blanco Moreau Incoming Lab Results From Stream5 Specimen Information: Blood Component Collected Lab Specimen Description 10/12/2019 2:17 PM [facility] .BLOOD Special Requests 10/12/2019 2:17 PM [facility] back lt arm 3ml Culture 10/12/2019 2:17 PM [facility] NO GROWTH 3 DAYS Medical Decision Making-Other: Note: Labs, medications, radiologic studies were reviewed with personal review of films Large amounts of data were reviewed Discussed with nursing Staff, environmental emergencies planner Infection Control and Prevention measures reviewed [...] Patel RN - 10/16/2019 6:15 AM EDT Director Of Diagnostic Imaging bladder scanned patient and bladder scan shows 554 mL, technical proposal writer straight cath patient and was only [...] loss Fluid Accumulation: 1 - Mild Extremities Tobacco Grower Strength: Not Performed Estimated Daily Nutrient Needs: Energy (kcal): 1.3-1.4 ~> 8958-3867 kcals/d; Weight Used for Energy Requirements: Admission Protein (g): 1.2-1.4 ~> 65-76 gms/d; Weight Used for Protein Requirements: [place] Nutrition Related Findings: Na 131 Wounds: None Current Nutrition Therapies: DIET GENERAL; Anthropometric Measures: Height: 5' 4 (162.6 cm) Current Body Weight: 154 lb (69.9 kg) Admission Body Weight: 154 lb (69.9 kg) Usual Body Weight: 160 lb (72.6 kg)(per pt's ) [place] Body Weight: 120 lbs; % [place] Body Weight 128.3 % BMI: 26.4 BMI [...] Discharge Planning: Too soon to determine Contact: [phone] * Dwayne Hanson MD - 10/15/2019 3:09 PM EDT [facility] Internal Medicine Teaching Residency Program Inpatient Daily Progress Note Patient: Shayy Maynard Date of : 1945 Acct: [id number] Room: Admit date: 10/09/2019 Today's date: 10/15/19 [...] of COPD, primary hypertension was transferred from [facility] for management of infrarenal abdominal aortic aneurysm and for vascular consultation. States she started having lower back pain since . Describes the pain as constant, sharp, 10out of 10 in intensity associated with nausea. Patient went to the emergency department at [facility] to have hypertensive emergency with systolics above 200 and d-dimer was elevated. CT abdomen was done which showed 3.5 infrarenal aortic aneurysm, started on Cardene drip and pain medications we re given. Patient was transferred to [facility] found to be hypoxic in upper 80s, [...] Q4H PRN hydrALAZINE, 10 mg, Q6H PRN vpvygkpggq-gzvwjptdkmsgw-thumruuh, 1 tablet, Q4H PRN sodium chloride flush, [...] Dwayne Hanson MD Internal Medicine Resident, PGY-1 [facility]; [place], [place] 10/15/2019, 3:09 PM Associated attestation - Bruce Pelletier MD - 10/15/2019 4:31 PM EDT I have discussed the care of Shayy Maynard , including pertinent history and exam [...] once MRI is back Electronically signed by Bruce Pelletier MD * Winifred Foster - 10/15/2019 3:09 PM EDT Occupational Therapy [facility] Occupational Therapy Not Seen Note DATE: 10/15/2019 Name: Shayy Maynard : 1945 Patient not available for [...] as appropriate. Winifred Foster, OT/S * Sho Tierney, AYO - 10/15/2019 1:55 PM EDT Physical Therapy Facility/Department: [facility] 2 Daily Treatment Note NAME: Shayy Maynard : 1945 Date of Service: 10/15/2019 [...] place: No Restraints: all rail up when BINDERY ASSISTANT left, okay with pt Therapy Time Individual Concurrent Group Co-treatment Time In 1326 Time Out 1342 Minutes 16 Timed Code Treatment Minutes: 16 Minutes Sho Tierney PTA * Willie Garcia APRN - [place] - [...] radiating to the top of head. HPI: Shayy Maynard is a 74 y.o. female with H/O HTN, HLD, COPD, uterine cancer s/p hysterectomy, who was admitted as a transfer from [facility] 10/09/2019 where she presented with gradually worsening [...] to ensure the accuracy of this automated gre tutor, some errors in gre tutor may have occurred. * Sailaja Durán RN - 10/15/2019 9:00 AM EDT Pt straight cathed for 850 cc clear yellow urine. Tolerated well. Will continue to monitor. * Alfonso Kendrick MD - 10/15/2019 8:38 AM EDT [facility] - Progress Note Today's Date and Time: [...] antibiotics Medical Decision Making/Summary/Discussion:10/15/2019 Infection Control Recommendations Roby Precautions Antimicrobial Stewardship Recommendations Discontinuation of therapy Coordination of Outpatient Care: Estimated Length of IV antimicrobials:None Patient will need Midline Catheter Insertion: no Patient will need PICC line Insertion:no Patient will need: Home IV , Infusion Center, SNF, LTAC:TBD Patient will need outpatient wound care:no Chief complaint/reason for consultation: Fever, headache-concern for meningitis History of Present Illness: Shayy Maynard is a 74 y.o.-year-old female who was initially admitted on 10/09/2019. Patient seen at the request of . INITIAL HISTORY: Patient transferred from [facility] on 10-09-19 because of low back pain and findings of an infrarenal abdominal aortic aneurysm. Developed onset of back pain on 10-07-19, associated with nausea. She was evaluated at [facility] and found to have a hypertensive emergency with systolic pressures over [address] showed a 3.5 cm infrarenal aortic aneurysm. Her BP was controlled with Cardene drip and the patient was transferred to [facility]. At [facility] patient had signs of hypoxia, [...] file Gets together: Not on file Attends yarsani service: Not on file Active member of [...] Initial FINDINGS: CTA NECK: AORTIC ARCH/ARCH VESSELS: Wivf-yk-orwyddjo atherosclerotic plaque at the arch arch and [...] No acute pulmonary process. Emphysema. Medical Decision Uozcte-Fyybjceu-Rymub: 10/15/2019 12:10 AM - Blanco Moreau Incoming Lab Results From Stream5 Specimen Information: Blood Component Collected Lab Specimen Description 10/12/2019 2:17 PM [facility] .BLOOD Special Requests 10/12/2019 2:17 PM [facility] back lt arm 3ml Culture 10/12/2019 2:17 PM [facility] NO GROWTH 3 DAYS Medical Decision Making-Other: Note: Labs, medications, radiologic studies were reviewed with personal review of films Large amounts of data were reviewed Discussed with nursing Staff, environmental emergencies planner Infection Control and Prevention measures reviewed [...] Hanson MD - 10/14/2019 1:29 PM EDT [facility] Internal Medicine Teaching Residency Program Inpatient Daily Progress Note Patient: Shayy Maynard Date of : 1945 Acct: [id number] Room: Admit date: 10/09/2019 Today's date: 10/14/19 [...] of COPD, primary hypertension was transferred from [facility] for management of infrarenal abdominal aortic aneurysm and for vascular consultation. States she started having lower back pain since . Describes the pain as constant, sharp, 10out of 10 in intensity associated with nausea. Patient went to the emergency department at [facility] to have hypertensive emergency with systolics above 200 and d-dimer was elevated. CT abdomen was done which showed 3.5 infrarenal aortic aneurysm, started on Cardene drip and pain medications we re given. Patient was transferred to [facility] found to be hypoxic in upper 80s, [...] Q4H PRN hydrALAZINE, 10 mg, Q6H PRN lgdfikruvp-ailifaghmrwyp-jpeujxiu, 1 tablet, Q4H PRN sodium chloride flush, [...] Dwayne Hanson MD Internal Medicine Resident, PGY-1 [facility]; [place], [place] 10/14/2019, 1:29 PM Associated attestation - Bruce Pelletier MD - 10/14/2019 3:55 PM EDT I have discussed the care of Shayy Maynard , including pertinent history and exam [...] ultrasound renal Doppler results Electronically signed by Bruce Pelletier MD * Jose Willie, FUNDRAISING MANAGER - DESIGN STUDIO CONSULTANT - 10/14/2019 11:22 AM EDT Neurology Nurse [...] refused any other medications for headache. HPI: Shayy Maynard is a 74 y.o. female with H/O HTN, HLD, COPD, uterine cancer s/p hysterectomy, who was admitted as a transfer from [facility] 10/09/2019 where she presented with gradually worsening [...] to ensure the accuracy of this automated gre tutor, some errors in gre tutor may have occurred. * Alfonso Kendrick MD - 10/14/2019 10:10 AM EDT [facility] - Progress Note Today's Date and Time: [...] antibiotics Medical Decision Making/Summary/Discussion:10/14/2019 Infection Control Recommendations Roby Precautions Antimicrobial Stewardship Recommendations Discontinuation of therapy Coordination of Outpatient Care: Estimated Length of IV antimicrobials:None Patient will need Midline Catheter Insertion: no Patient will need PICC line Insertion:no Patient will need: Home IV , Infusion Center, SNF, LTAC:TBD Patient will need outpatient wound care:no Chief complaint/reason for consultation: Fever, headache-concern for meningitis History of Present Illness: Shayy Maynard is a 74 y.o.-year-old female who was initially admitted on 10/09/2019. Patient seen at the request of . INITIAL HISTORY: Patient transferred from [facility] on 10-09-19 because of low back pain and findings of an infrarenal abdominal aortic aneurysm. Developed onset of back pain on 10-07-19, associated with nausea. She was evaluated at [facility] and found to have a hypertensive emergency with systolic pressures over [address] showed a 3.5 cm infrarenal aortic aneurysm. Her BP was controlled with Cardene drip and the patient was transferred to [facility]. At [facility] patient had signs of hypoxia, [...] file Gets together: Not on file Attends yarsani service: Not on file Active member of [...] Initial FINDINGS: CTA NECK: AORTIC ARCH/ARCH VESSELS: Nxvj-xm-rjnwnjap atherosclerotic plaque at the arch arch and [...] No acute pulmonary process. Emphysema. Medical Decision Ycjqzr-Bmlsnohg-Ojpip: Medical Decision Making-Other: Note: Labs, medications, radiologic studies were reviewed with personal review of films Large amounts of data were reviewed Discussed with nursing Staff, environmental emergencies planner Infection Control and Prevention measures reviewed [...] Ferris RN - 10/13/2019 10:40 PM EDT Director Of Diagnostic Imaging contacted internal med regarding pt complaining of lower abdominal pain. States she has to void but is unable to. Bladder scanned her just now and >999. New order for one time straight cath. Straight cath completed at 2315. 900ml clear, yellow urine out with 63ml residual. Will continue to monitor. 0430- Director Of Diagnostic Imaging contacted internal [facility] regarding pt unable to void. Bladder scan shows 490. One time straight cath order placed at 0610. New bladder scan shows 571. Cath completed at 0645. 550ml clear, yellow urine out with 16ml residual. Will continue to monitor. Internal med also made aware that pt has not had bowel movement since admission. Mirilax administered. Bowel sounds active. * Linda Adhikari, BINDERY ASSISTANT - 10/13/2019 4:16 PM EDT Physical Therapy Facility/Department: [facility] 2 Daily Treatment Note NAME: Shayy Maynard : 1945 Date of Service: 10/13/2019 [...] Hanson MD - 10/13/2019 9:30 AM EDT [facility] Internal Medicine Teaching Residency Program Inpatient Daily Progress Note Patient: Shayy Maynard Date of : 1945 Acct: [id number] Room: Admit date: 10/09/2019 Today's date: 10/13/19 Number of days in the hospital: 4 SUBJECTIVE Admitting Diagnosis: Aneurysm of infrarenal abdominal aorta (HCC) CC: Midline Lower Back Pain Pt examined at bedside. Chart & results reviewed. 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 States she started having lower back pain since . Describes the pain as constant, sharp, 10out of 10 in intensity associated with nausea. Patient went to the emergency department at [facility] to have hypertensive emergency with systolics above 200 and d-dimer was elevated. CT abdomen was done which showed 3.5 infrarenal aortic aneurysm, started on Cardene drip and pain medications we re given. Patient was transferred to [facility] found to be hypoxic in upper 80s, [...] Oral BID Continuous Infusions: [Held by provider] Chelopine Stopped (10/10/191946) dextrose lactated ringers 75 mL/hr at 10/13/19 0555 PRN Medicationssodium chloride, 1 spray, PRN ipratropium-albuterol, 1 ampule, Q4H PRN labetalol, 10 mg, Q4H PRN hydrALAZINE, 10 mg, Q6H PRN kaukfwfosg-riltvxsnsbydb-cffuzkkx, 1 tablet, Q4H PRN sodium chloride flush, [...] Dwayne Hanson MD Internal Medicine Resident, PGY-1 [facility]; [place], [place] 10/13/2019, 9:31 AM Associated attestation - Bruce Pelletier MD - 10/13/2019 11:02 PM EDT I have discussed the care of Shayy Maynard , including pertinent history and exam [...] problems. * Overall course ; show no slip box changer time. Headache is improved Blood pressure improved Ultrasound renal duplex, concerning for unilateral renal artery stenosis Patient very sleepy Has tenderness in lower back X-ray lumbar spine done at the time of admission, concerning for possible fracture Ordering MRI lumbar spine Electronically signed by Bruce Pelletier MD * Viry Morelos, FLAQUITO - DESIGN STUDIO CONSULTANT - 10/13/2019 8:44 AM EDT NEUROLOGY INPATIENT PROGRESS NOTE 10/13/2019 Current Exam: Chart reviewed. Discussed with RN. Patient afebrile this morning. Still complaining of headache. Refused PT earlier today but has been able to get up to bedside commode per RN. Poor appetite, has been lethargic intermittently today. Brief History: Shayy Maynard is a 74 y.o. female with [...] Take 10 mg by mouth nightly Allergies: Shayy Maynard is allergic to avelox [moxifloxacin]; demerol hcl [meperidine]; ciprofloxacin; nubain [nalbuphine]; phenergan [promethazine]; statins; sulfa antibiotics; and tape [adhesivetape]. Past Medical History: Diagnosis Date Cancer (HCC) uterine Hyperlipidemia Hypertension Past Surgical History: Procedure Laterality Date HYSTERECTOMY NECK SURGERY Social History: Shayy Maynard reports that she has never smoked. [...] negative for acute changes -IV Depacon 500mg K5crxca x3 doses -Continued blood pressure management as [...] to ensure the accuracy of this automated gre tutor, some errors in gre tutor may have occurred. * Alfonso Kendrick MD - 10/13/2019 7:57 AM EDT [facility] - Progress Note Today's Date and Time: 10/13/2019, 7:57 AM Impression : Fever, etiology to be determined Intermittent Headaches, most likely side effect of the various medications being given for control of HTN. No apparent meningitis Low back pain Aneurysm infrarenal abdominal aorta Centrilobular emphysema Allergy to quinolones, sulfa Recommendations: Monitor off antibiotics Medical Decision Making/Summary/Discussion:10/13/2019 Infection Control Recommendations Roby Precautions Antimicrobial Stewardship Recommendations Discontinuation of therapy Coordination of Outpatient Care: Estimated Length of IV antimicrobials:None Patient will need Midline Catheter Insertion: no Patient will need PICC line Insertion:no Patient will need: Home IV , Infusion Center, SNF, LTAC:TBD Patient will need outpatient wound care:no Chief complaint/reason for consultation: Fever, headache-concern for meningitis History of Present Illness: Shayy Maynard is a 74 y.o.-year-old female who was initially admitted on 10/09/2019. Patient seen at the request of . INITIAL HISTORY: Patient transferred from [facility] on 10-09-19 because of low back pain and findings of an infrarenal abdominal aortic aneurysm. Developed onset of back pain on 10-07-19, associated with nausea. She was evaluated at [facility] and found to have a hypertensive emergency with systolic pressures over [address] showed a 3.5 cm infrarenal aortic aneurysm. Her BP was controlled with Cardene drip and the patient was transferred to [facility]. At V patient had signs of hypoxia, [...] file Gets together: Not on file Attends yarsani service: Not on file Active member of [...] Initial FINDINGS: CTA NECK: AORTIC ARCH/ARCH VESSELS: Gbnd-vp-arrqcaln atherosclerotic plaque at the arch arch and [...] No acute pulmonary process. Emphysema. Medical Decision Zvtmik-Gthtauox-Vbppc: Medical Decision Making-Other: Note: Labs, medications, radiologic studies were reviewed with personal review of films Large amounts of data were reviewed Discussed with nursing Staff, environmental emergencies planner Infection Control and Prevention measures reviewed All prior entries were reviewed Administer medications as ordered Prognosis: Guarded Discharge planning reviewed Follow up as outpatient. Thank you for allowing us to participate in the care of this patient. Please call with questions. Dickson Hutchinson DPM Pager: - Office: * Divina Ferris RN - 10/13/2019 3:00 AM EDT Director Of Diagnostic Imaging contacted internal med regarding pt blood pressure. [...] administer. New order for PO 10mg norvasc. Director Of Diagnostic Imaging will continue to monitor BP and pain. * Alfonso Kendrick MD - 10/12/2019 4:32 PM EDT [facility] - Progress Note Today's Date and Time: 10/12/2019, 4:32 PM Impression : Fever, etiology to be determined Intermittent Headaches, most likely side effect of the various medications being given for control of HTN. No apparent meningitis Low back pain Aneurysm infrarenal abdominal aorta Centrilobular emphysema Allergy to quinolones, sulfa Recommendations: Monitor off antibiotics Blood, urine cultures Medical Decision Making/Summary/Discussion:10/12/2019 Infection Control Recommendations Roby Precautions Antimicrobial Stewardship Recommendations Discontinuation of therapy Coordination of Outpatient Care: Estimated Length of IV antimicrobials:None Patient will need Midline Catheter Insertion: no Patient will need PICC line Insertion:no Patient will need: Home IV , Infusion Center, SNF, LTAC:TBD Patient will need outpatient wound care:no Chief complaint/reason for consultation: Fever, headache-concern for meningitis History of Present Illness: Shayy Maynard is a 74 y.o.-year-old female who was initially admitted on 10/09/2019. Patient seen at the request of . INITIAL HISTORY: Patient transferred from [facility] on 10-09-19 because of low back pain and findings of an infrarenal abdominal aortic aneurysm. Developed onset of back pain on 10-07-19, associated with nausea. She was evaluated at [facility] and found to have a hypertensive emergency with systolic pressures over [address] showed a 3.5 cm infrarenal aortic aneurysm. Her BP was controlled with Cardene drip and the patient was transferred to [facility]. At V patient had signs of hypoxia, [...] file Gets together: Not on file Attends yarsani service: Not on file Active member of [...] Initial FINDINGS: CTA NECK: AORTIC ARCH/ARCH VESSELS: Prut-ku-pyykfnua atherosclerotic plaque at the arch arch and [...] No acute pulmonary process. Emphysema. Medical Decision Vmhljc-Ruzsispf-Wqejo: Medical Decision Making-Other: Note: Labs, medications, radiologic studies were reviewed with personal review of films Large amounts of data were reviewed Discussed with nursing Staff, environmental emergencies planner Infection Control and Prevention measures reviewed All prior entries were reviewed Administer medications as ordered Prognosis: Guarded Discharge planning reviewed Follow up as outpatient. Thank you for allowing us to participate in the care of this patient. Please call with questions. Alfonso Kendrick MD Pager: - Office: * Malissa Anderson, BINDERY ASSISTANT - 10/12/2019 2:55 PM EDT Physical Therapy DATE: 10/12/2019 NAME: Shayy Maynard : 1945 Patient not seen this [...] Therapy Not Seen Note DATE: 10/12/2019 Name: Shayy Maynard : 1945 Patient not available for Occupational Therapy due to: RN cx d/t pt not feeling well and has a fever. Next Scheduled Treatment: 10/13/2019 * Denys Morris MD - 10/12/2019 1:53 PM EDT [facility] Internal Medicine Teaching Residency Program Inpatient Daily Progress Note Patient: Shayy Maynard Date of : 1945 Acct: [id number] Room: Admit date: 10/09/2019 Today's date: 10/12/19 [...] Q4H PRN hydrALAZINE, 10 mg, Q6H PRN wkqplygjvq-adnioczygxiti-jdicrnnh, 1 tablet, Q4H PRN sodium chloride flush, [...] Denys Morris MD Internal Medicine Resident, PGY-3 [facility]; [place], [place] 10/12/2019, 1:53 PM * Bruce Pelletier MD - 10/12/2019 1:07 PM EDT Patient seen and examined Little sleepy, clonidine discontinued Hypertension controlled Headache improved MRI brain reviewed concerning for meningioma Work-up for secondary hypertension progress * Viry Morelos, FLAQUITO - DESIGN STUDIO CONSULTANT - 10/12/2019 6:51 AM EDT NEUROLOGY INPATIENT [...] right frontallobe, atrophy with CSVID. Brief History: Shayy Maynard is a 74 y.o. female with [...] Take 10 mg by mouth nightly Allergies: Shayy Maynard is allergic to avelox [moxifloxacin]; demerol hcl [meperidine]; ciprofloxacin; nubain [nalbuphine]; phenergan [promethazine]; statins; sulfa antibiotics; and tape [adhesivetape]. Past Medical History: Diagnosis Date Cancer (HCC) uterine Hyperlipidemia Hypertension Past Surgical History: Procedure Laterality Date HYSTERECTOMY NECK SURGERY Social History: Shayy Maynard reports that she has never smoked. [...] to ensure the accuracy of this automated gre tutor, some errors in gre tutor may have occurred. * Divina Ferris RN - 10/11/2019 10:20 PM EDT Director Of Diagnostic Imaging contacted internal med regarding pt headache of 3/10. Pt has IV toradol and reglan ordered. Pt is alert and oriented x2. Director Of Diagnostic Imaging instructed to hold IV toradol and reglan and to administer PRN tylenol for the headache. Will continue to monitor. * Divina Ferris RN - 10/11/2019 10:20 PM EDT Director Of Diagnostic Imaging contacted internal med regarding blood pressure 161/62 and temp of 99.9 after administering scheduled clonidine and lopressor. Pt rating headache 3/10. Director Of Diagnostic Imaging instructed to hold scheduled IV toradol and reglan. 0435- Director Of Diagnostic Imaging contacted internal med regarding BP. Director Of Diagnostic Imaging unable to keep SBP <160. Director Of Diagnostic Imaging administered PRN IV hydralazine at 2315 for a pressure in the 170s, pressure went to the 160s then back up.IV labetalol administered at 0315 for SBP in the low 180s. Pressure still in the 170s. No new orders at this time. Director Of Diagnostic Imaging instructed to continue to monitor. 0530- IV hydralazine and PO fioricet administered. No new orders at this time. Will continue to monitor BP. * Divina Ferris RN - 10/11/2019 10:15 PM EDT Director Of Diagnostic Imaging received call from Dr. Kendrick regarding pt [...] Hanson MD - 10/11/2019 2:46 PM EDT [facility] Internal Medicine Teaching Residency Program Inpatient Daily Progress Note Patient: Shayy Maynard Date of : 1945 Acct: [id number] Room: Admit date: 10/09/2019 Today's date: 10/11/19 [...] of COPD, primary hypertension was transferred from [facility] for management of infrarenal abdominal aortic aneurysm and for vascular consultation. States she started having lower back pain since . Describes the pain as constant, sharp, 10out of 10 in intensity associated with nausea. Patient went to the emergency department at [facility] to have hypertensive emergency with systolics above 200 and d-dimer was elevated. CT abdomen was done which showed 3.5 infrarenal aortic aneurysm, started on Cardene drip and pain medications we re given. 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 articulators Headache work-up in progress, neurology following Plan for MRI brain, may need lumbar puncture Resistant hypertension, hypokalemia We will do work-up for secondary hypertension Renin / Aldosterone level Renal artery Doppler Urine and serum metanephrines * Radha Vogel, OT - 10/11/2019 1:30 PM EDT Occupational Therapy Occupational Therapy Initial Assessment Date: 10/11/2019 Patient Name: Shayy Maynard : 1945 Date of Service: 10/11/2019 [...] Ambulation Assistance: Independent Transfer Assistance: Independent Active 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 * Viry Morelos APRN - CNP - 10/11/2019 7:24 AM EDT NEUROLOGY INPATIENT [...] 170s at time of exam. Brief History: Shayy Maynard is a 74 y.o. female with [...] Take 10 mg by mouth nightly Allergies: Shayy Maynard is allergic to avelox [moxifloxacin]; demerol hcl [meperidine]; ciprofloxacin; nubain [nalbuphine]; phenergan [promethazine]; statins; sulfa antibiotics; and tape [adhesivetape]. Past Medical History: Diagnosis Date Cancer (HCC) uterine Hyperlipidemia Hypertension Past Surgical History: Procedure Laterality Date HYSTERECTOMY NECK SURGERY Social History: Shayy Maynard reports that she has never smoked. [...] of Toradol 15mg, Reglan 5mg, Benadryl 12.5mg [id number] x3 -Continued blood pressure management as you are doing -May consider LP through IR for persistent headache -We will follow Please note that this note was generated using a voice recognition dictation software. Although every effort was made to ensure the accuracy of this automated gre tutor, some errors in gre tutor may have occurred. * Marely Guardado RN - 10/10/2019 9:18 PM EDT Perfect served asset protection greeter intermed: Patient is due to get 100mg [...] Hanson MD - 10/10/2019 11:58 AM EDT [facility] Internal Medicine Teaching Residency Program Inpatient Daily Progress Note Patient: Shayy Maynard Date of : 1945 Acct: [id number] Room: Admit date: 10/09/2019 Today's date: 10/10/19 [...] of COPD, primary hypertension was transferred from [facility] for management of infrarenal abdominal aortic aneurysm and for vascular consultation. States she started having lower back pain since . Describes the pain as constant, sharp, 10out of 10 in intensity associated with nausea. Patient went to the emergency department at [facility] to have hypertensive emergency with systolics above 200 and d-dimer was elevated. CT abdomen was done which showed 3.5 infrarenal aortic aneurysm, started on Cardene drip and pain medications we re given. Patient was transferred to [facility] found to be hypoxic in upper 80s, [...] Dwayne Hanson MD Internal Medicine Resident, PGY-1 [facility]; [place], [place] 10/10/2019, 12:00 PM * Giovanna Rodrigues MD - 10/10/2019 11:22 AM EDT Attending Physician Statement I have discussed the care of Shayy Maynard and I have examined the patient [...] increase Aldactone to 50 Electronically signed by Giovanna Rodrigues MD * Carlene Potter RN - [...] Prieto DO - 10/09/2019 4:07 AM EDT [facility] ED Emergency Department Emergency Medicine Resident Sign-out Care of Shayy Maynard was assumed from Dr. Melton and [...] PRN Last APR action: Given - by ROMEO VERGARA on 10/09/19 at 0643 JOEL MELTON [...] a 74 y.o. Female with transfer from [facility]. Low back pain since . 3.4 infrarenal [...] [] Against Medical Advice [] Eloped FOLLOW-UP: Velasquez Bunch MD [address] [id number] DISCHARGE MEDICATIONS: New Prescriptions No medications on [...] Chief Complaint M79.641 CONSULT ARTEMIO OCHOA Trigger FingerReason for VisitTrigger finger, right middle finger Trigger finger, right ring finger Additional Source Comments INFORMATION SOURCE (unrecogn ized section and content) DATE CREATED AUTHOR 08/13/2017 [facility] DATE CREATED AUTHOR AUTHOR'S ORGANIZ ATION 11/03/2019 [facility] DATE CREATED AUTHOR AUTHOR'S ORGANIZ ATION 11/29/2020 [facility] DATE CREATED AUTHOR AUTHOR'S ORGANIZ ATION 06/18/[address] [facility] DATE CREATED AUTHOR AUTHOR'S ORGANIZ ATION 05/22/2024 [facility] DATE CREATED AUTHOR AUTHOR'S ORGANIZ ATION 08/20/2024 [facility] DATE CREATED AUTHOR AUTHOR'S ORGANIZ ATION 10/23/2024 [facility] Reason for Visit (unrecogniz ed section and content) ReasonCommentsAbdominal PainBack PainStatusReasonSpecialtyDiagnoses / Procedures Referred By ContactReferred To Contact Diagnoses AAA (abdominal aortic aneurysm) (HCC) Giovanna Rodrigues MD [address] [place] [address] [facility] ReasonCommentsEczemaReasonCommentsFollow-up Care Teams (unrecognized sec tion and content) Team Status: Active Member Role Status Kaylynn Bunch MD Primary Care Provider Active Team Status: Inactive Member Role Status Kaylynn Bunch MD Primary Care Provider Active Start: April 08, 2023 End: April 08Mora Alejo ProviderActiveStart: April 08, 2023 End: April 08, 2023 Team Status: Active Member Role Status Kaylynn Bunch MD Primary Care Provider Active Start: April 08, 2023 Mora Beltran ProviderActiveStart: April 08, 2023 Team Status: Inactive Member Role Status Kaylynn Bunch MD Primary Care Provider Active Start: April 17, 2023 End: April 17Mora Alejo ProviderActiveStart: April 17, 2023 End: April 17, 2023Team MemberRelationshipSpecialtyStart DateEnd Date Velasquez Bunch MD [address] [facility] [place] [address] PCP - [facility]01/06/23Te MemberRelationshipSpecialtyStart Date End Date Velasquez Bunch MD [address] [facility] [place] [address] [facility] - [facility]01/06/23[facility] MemberRelationshipSpecialtyStart Date End Date Velasquez Bunch MD [address] [facility] [place] [address] [facility] - [facility]01/06/23Te MemberRelationshipSpecialtyStart Date End Date Velasquez Bunch MD [address] [facility] [place] [address] [facility] - [facility]01/06/23 Goals (unrecognized section and content) Goals may [...] BE BASED ON THE PRIMARY CLINICAL RECORDS. [facility] [employer] [facility]. provides no warranty or guarantee of the accuracy or completeness of information in this document.
--- NOTE | 2024-12-17 11:20 | CT_ITS ---
[address] [address] Patient Name: ZACHARY MAYNARD MRN: [id number] date: 1945 Sex: F Assigned Patient Location: ED.MAIN Current Patient Location: Accession/Order Number: [id number] Exam Date: 12/17/2024 12:25 Report Date: 12/17/2024 13:26 At the request of: MAGO FOREMAN DO Procedure: CT abdomen pelvis w con CT chest w con, CT abdomen pelvis w con 12/17/2024 12:40 PM SIGN AND SYMPTOMS: ^fall on Eliquis, left rib pain, dizziness, leg weakness CONTRAST: 100 mL of intravenous Omnipaque 300 TECHNIQUE: Multidetector CT axial slices of the chest, abdomen and pelvis were obtainedwith IV contrast. Multiplanar reformats were performed and viewed on a separate workstation and reviewed to further define anatomy and possible pathology. CT was performed with one or more of the following dose reduction techniques: Automated exposure control, adjustment of the mA and/or kV according to patient size, or use of iterative reconstruction technique. COMPARISON: None. FINDINGS: Lower neck: Thyroid gland within normal limits, no supraclavicle adenopathy. Vessels: Calcified and noncalcified plaque is noted in the aortic arch with areas of ulceration along the lateral and posterior wall of the aortic arch and descending thoracic aorta. Mediastinum and Mylene: Within normal limits. Heart: Normal size. No pericardial effusion. Airways: Within normal limits Lungs: Emphysematous changes are noted in the lung parenchyma. Pleura: Within normal limits. Chest Wall: Within normal limits. Abdomen: Liver: within normal limits. Bile Ducts: Normal caliber. Gallbladder: No calcified gallstones. Normal caliber wall. Pancreas: within normal limits. Spleen: within normal limits. Adrenals: within normal limits. Kidneys: There is renal cortical atrophy bilaterally. Similar focal cysts are noted in the left renal cortex. Pelvis: Reproductive Organs: No pelvic masses. Ureters: within normal limits. Bladder: within normal limits. Bowel: There are uncomplicated colonic diverticula. There is no evidence of bowel obstruction. Mesenteric Lymph Nodes: No enlarged mesenteric lymph nodes. Peritoneum: No ascites or free air, no fluid collection. Vessels: Atherosclerotic changes are noted in the abdominal aorta with evidence of prior stenting of an abdominal aortic aneurysm.. Retroperitoneum: within normal limits. Abdominal Wall: Degenerative changes are noted in the hips with findings suggesting avascular necrosis bilaterally. No evidence of acute displaced fracture. Bones: Degenerative changes are noted in the thoracolumbar spine. CT/CT abdomen pelvis w con IMPRESSION: No evidence of acute traumatic injury within the chest, abdomen, or pelvis. No evidence of fracture. 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 Impression dictated by: Xavier Bonds M.D. 12/17/2024 1:26 PM Dictation Location: [place] [address] Electronically authenticated by: [id number] Y Date: 12/17/2024 13:26
--- NOTE | 2024-12-17 11:20 | CT_ITS ---
[address] [address] Patient Name: ZACHARY MAYNARD MRN: [id number] date: 1945 Sex: F Assigned Patient Location: ED.MAIN Current Patient Location: Accession/Order Number: [id number] Exam Date: 12/17/2024 12:25 Report Date: 12/17/2024 13:26 At the request of: MAGO FOREMAN DO Procedure: CT abdomen pelvis w con CT chest w con, CT abdomen pelvis w con 12/17/2024 12:40 PM SIGN AND SYMPTOMS: ^fall on Eliquis, left rib pain, dizziness, leg weakness CONTRAST: 100 mL of intravenous Omnipaque 300 TECHNIQUE: Multidetector CT axial slices of the chest, abdomen and pelvis were obtainedwith IV contrast. Multiplanar reformats were performed and viewed on a separate workstation and reviewed to further define anatomy and possible pathology. CT was performed with one or more of the following dose reduction techniques: Automated exposure control, adjustment of the mA and/or kV according to patient size, or use of iterative reconstruction technique. COMPARISON: None. FINDINGS: Lower neck: Thyroid gland within normal limits, no supraclavicle adenopathy. Vessels: Calcified and noncalcified plaque is noted in the aortic arch with areas of ulceration along the lateral and posterior wall of the aortic arch and descending thoracic aorta. Mediastinum and Mylene: Within normal limits. Heart: Normal size. No pericardial effusion. Airways: Within normal limits Lungs: Emphysematous changes are noted in the lung parenchyma. Pleura: Within normal limits. Chest Wall: Within normal limits. Abdomen: Liver: within normal limits. Bile Ducts: Normal caliber. Gallbladder: No calcified gallstones. Normal caliber wall. Pancreas: within normal limits. Spleen: within normal limits. Adrenals: within normal limits. Kidneys: There is renal cortical atrophy bilaterally. Similar focal cysts are noted in the left renal cortex. Pelvis: Reproductive Organs: No pelvic masses. Ureters: within normal limits. Bladder: within normal limits. Bowel: There are uncomplicated colonic diverticula. There is no evidence of bowel obstruction. Mesenteric Lymph Nodes: No enlarged mesenteric lymph nodes. Peritoneum: No ascites or free air, no fluid collection. Vessels: Atherosclerotic changes are noted in the abdominal aorta with evidence of prior stenting of an abdominal aortic aneurysm.. Retroperitoneum: within normal limits. Abdominal Wall: Degenerative changes are noted in the hips with findings suggesting avascular necrosis bilaterally. No evidence of acute displaced fracture. Bones: Degenerative changes are noted in the thoracolumbar spine. CT/CT chest w con IMPRESSION: No evidence of acute traumatic injury within the chest, abdomen, or pelvis. No evidence of fracture. 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 Impression dictated by: Xavier Bonds M.D. 12/17/2024 1:26 PM Dictation Location: [place] [address] Electronically authenticated by: [id number] Y Date: 12/17/2024 13:26
--- NOTE | 2024-12-17 11:20 | CT_ITS ---
The [address] [address] Patient Name: ZACHARY MAYNARD MRN: [id number] date: 1945 Sex: F Assigned Patient Location: ED.MAIN Current Patient Location: Accession/Order Number: [id number] Exam Date: 12/17/2024 12:25 Report Date: 12/17/2024 13:10 At the request of: MAGO FOREMAN DO Procedure: CT cervical spine wo con CT head/brain wo con, CT cervical spine wo con 12/17/2024 12:40 PM SIGNS AND SYMPTOMS: ^fall on Eliquis TECHNIQUE:Multi-detector CT axial slices of the brain and cervical spine were obtained without IV contrast. Helical,sagittal, coronal, and 3-D reconstructions of the cervical spine were performed. CT was performed with one or more of the following dose reduction techniques: Automated exposure control, adjustment of the mA and/or kV according to patient size, or use of iterative reconstruction technique. COMPARISON: None. FINDINGS: Noncontrast head CT: There is no shift of the midline structures, acute intracranial bleeding, mass effects, or evidence of acute ischemia. 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 This periventricular white matter hypoattenuation. There is age-related cortical atrophy. Atherosclerotic changes are noted in the intracranial segments of the internal carotid arteries and V4 segments of the vertebral arteries. The ventricular system is normal in size. The brainstem and the cerebellum are unremarkable. The visualized intraorbital contents, the visualized paranasal sinuses, and the infratemporal soft tissues show no acute abnormality. The osseous structures in the skull base and the calvarium show no abnormality. Soft tissue swelling is noted in the left frontal scalp. Cervical spine: There is preservation of the vertebral body heights. There is evidence of prior intervertebral fusion at C5-C6. There is mild disc height loss at C3-C4. No fractures or dislocations are seen. The alignment of the cervical spine is normal. The craniocervical junction is within normal limits. Degenerative changes are noted in the lateral axial joint. The prevertebral soft tissues are within normal limits. The paraspinous soft tissues are within normal limits. Atherosclerotic changes are noted in the carotid bifurcations. The lung apices are unremarkable. CT/CT head/brain wo con IMPRESSION: No acute intracranial pathology. Soft tissue swelling is noted in the frontal scalp. No acute cervical spine injury. Degenerative changes are noted in the cervical spine. Impression dictated by: Xavier Bonds M.D. 12/17/2024 1:10 PM Dictation Location: [place] [address] Electronically authenticated by: [id number] Y Date: 12/17/2024 13:10
[2024-12-17 11:54] LABS: Hematocrit 39.8 % (36.0-48.0); Hemoglobin 12.7 g/dL (12.0-16.0); Immature Granulocytes Abs Auto 0.16 10^3/uL (0.00-0.03); Immature Granulocytes Pct Auto 1.5 % (0.0-0.5); Lymphocytes Absolute Auto 1.0 10^3/uL (1.2-3.8); Mean Corpuscular HGB Conc 31.9 g/dL (29.9-35.2); Mean Corpuscular Hemoglobin 30.3 pg (26.7-34.0); Mean Corpuscular Volume 95.0 fL (81.0-99.0); Platelet Count 207 10^3/uL (150-450); Red Blood Count 4.19 10^6/uL (4.20-5.40); White Blood Count 10.6 10^3/uL (4.0-11.0)
[2024-12-17 12:09] LABS: Alanine Aminotransferase 28 U/L (14-59); Albumin Globulin Ratio 1.2; Albumin Level 3.5 g/dL (3.4-5.0); Alkaline Phosphatase 143 U/L (46-116); Anion Gap 15.3; Aspartate Amino Transferase 18 U/L (15-37); Blood Urea Nitrogen 26.0 mg/dL (7.0-18.0); Calcium 9.4 mg/dL (8.5-10.1); Carbon Dioxide 28.6 mmol/L (21.0-32.0); Chloride 107 mmol/L (98-107); Estimated GFR (African America 48 (>=60 mL/min/1.73m^2); Estimated GFR (Non-African Ame 40 (>=60 mL/min/1.73m^2); Globulin 3.0 g/dL; Glucose 125 mg/dL (74-106); Potassium 3.9 mmol/L (3.5-5.1); Sodium 147 mmol/L (136-145); Total Protein 6.5 g/dL (6.4-8.2)
[2024-12-17 12:13] LABS: INR 1.07; Partial Thromboplastin Time 28.0 sec (22.3-36.2); Prothrombin Time 11.3 sec (9.0-11.6)
--- NOTE | 2024-12-17 12:15 | CT_ITS ---
The [address] [address] Patient Name: ZACHARY MAYNARD MRN: [id number] date: 1945 Sex: F Assigned Patient Location: ER Current Patient Location: Accession/Order Number: [id number] Exam Date: 12/17/2024 12:25 Report Date: 12/17/2024 13:10 At the request of: MAGO FOREMAN DO Procedure: CT cervical spine wo con CT head/brain wo con, CT cervical spine wo con 12/17/2024 12:40 PM SIGNS AND SYMPTOMS: ^fall on Eliquis TECHNIQUE:Multi-detector CT axial slices of the brain and cervical spine were obtained without IV contrast. Helical,sagittal, coronal, and 3-D reconstructions of the cervical spine were performed. CT was performed with one or more of the following dose reduction techniques: Automated exposure control, adjustment of the mA and/or kV according to patient size, or use of iterative reconstruction technique. COMPARISON: None. FINDINGS: Noncontrast head CT: There is no shift of the midline structures, acute intracranial bleeding, mass effects, or evidence of acute ischemia. 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 This periventricular white matter hypoattenuation. There is age-related cortical atrophy. Atherosclerotic changes are noted in the intracranial segments of the internal carotid arteries and V4 segments of the vertebral arteries. The ventricular system is normal in size. The brainstem and the cerebellum are unremarkable. The visualized intraorbital contents, the visualized paranasal sinuses, and the infratemporal soft tissues show no acute abnormality. The osseous structures in the skull base and the calvarium show no abnormality. Soft tissue swelling is noted in the left frontal scalp. Cervical spine: There is preservation of the vertebral body heights. There is evidence of prior intervertebral fusion at C5-C6. There is mild disc height loss at C3-C4. No fractures or dislocations are seen. The alignment of the cervical spine is normal. The craniocervical junction is within normal limits. Degenerative changes are noted in the lateral axial joint. The prevertebral soft tissues are within normal limits. The paraspinous soft tissues are within normal limits. Atherosclerotic changes are noted in the carotid bifurcations. The lung apices are unremarkable. CT/CT cervical spine wo con IMPRESSION: No acute intracranial pathology. Soft tissue swelling is noted in the frontal scalp. No acute cervical spine injury. Degenerative changes are noted in the cervical spine. Impression dictated by: Xavier Bonds M.D. 12/17/2024 1:10 PM Dictation Location: [place] [address] Electronically authenticated by: [id number] Y Date: 12/17/2024 13:10
--- NOTE | 2024-12-17 12:19 | ED.GENADUL1 ---
HPI HPI - General Adult General Chief complaint: Fall Stated complaint: FALL - RIB AND FACE PAIN Time Seen by Provider: 12/17/24 10:50 Source: patient Mode of arrival: Wheelchair History of Present Illness HPI narrative: Patient is an 79-year-old female presenting to the emergency department from home after sustaining an injury. Patient states that she was walking through her house when she fell and hit her head and the left side of her ribs. She is unsure if she lost consciousness or not. She states she feels dizzy, however this is ongoing for the last 7 years after being diagnosed with sepsis . Patient does take Eliquis, but did not take her dose of Eliquis today. Patient is complaining of pain in the left side of her ribs, but denies any other complaints. She denies any chest pain or shortness of breath. No headaches, nausea, or vomiting. No constipation or diarrhea. Related Data Home Medications ?Medication ?Instructions ?Recorded ?Confirmed albuterol sulfate 90 mcg/actuation 2 puff inhalation Q4H PRN 11/23/23 12/17/24 aerosol inhaler shortness of breath or wheezing amiodarone 200 mg tablet 200 mg PO DAILY 12/02/23 12/17/24 ezetimibe 10 mg tablet 10 mg PO DAILY 12/02/23 12/17/24 ropinirole 0.5 mg tablet 0.5 mg PO .QHS 12/02/23 12/17/24 tiotropium bromide 2.5 2 puff inhalation DAILY PRN 12/02/23 02/25/24 mcg/actuation mist for inhalation shortness of breath (Spiriva Respimat) metoprolol tartrate 50 mg tablet 50 mg PO BID 12/03/23 02/25/24 polyethylene glycol 3350 17 17 g PO DAILY 02/01/24 02/25/24 gram/dose oral powder triamcinolone acetonide 0.1 % 1 applic topical BID PRN itching 02/01/24 02/25/24 topical cream amoxicillin 875 mg-potassium tab 12/17/24 clavulanate 125 mg tablet carvedilol 12.5 mg tablet 12.5 mg PO Q12H 12/17/24 12/17/24 clopidogrel 75 mg tablet 75 mg PO DAILY 12/17/24 12/17/24 evolocumab 140 mg/mL subcutaneous 140 mg subcut DAILY 12/17/24 12/17/24 pen injector (Repatha SureClick) ferrous sulfate 325 mg (65 mg 325 mg PO BID 12/17/24 12/17/24 iron) tablet (Feosol) liothyronine 5 mcg tablet 10 mcg PO DAILY 12/17/24 12/17/24 meclizine 25 mg tablet 25 mg PO BID PRN dizziness 12/17/24 12/17/24 memantine 21 mg capsule 21 mg PO Q24H 12/17/24 12/17/24 sprinkle,extended release 24hr prednisone 60 mg PO DAILY 12/17/24 12/17/24 tralokinumab-ldrm 300 mg/2 mL 300 mg subcut Q28D 12/17/24 12/17/24 subcutaneous auto-injector (Adbry) Previous Rx's ?Medication ?Instructions ?Recorded apixaban 5 mg tablet (Eliquis) 5 mg PO BID #60 tabs 11/28/23 nitroglycerin 0.4 mg sublingual 0.4 mg sublingual Q5M PRN Chest 12/03/23 tablet Pain #20 tabs Allergies Allergy/AdvReac Type Severity Reaction Status Date / Time meperidine (From Demerol) Allergy Severe Anaphylaxis Verified 12/17/24 10:51 aspirin Allergy excessive Verified 12/17/24 11:32 bleeding atorvastatin Allergy Unknown Verified 12/17/24 11:32 cefdinir Allergy Unknown Verified 12/17/24 11:32 ciprofloxacin (From Cipro) Allergy Unknown Verified 12/17/24 11:32 moxifloxacin (From Avelox) Allergy Unknown Verified 12/17/24 11:32 nalbuphine (From Nubain) Allergy Unknown Verified 12/17/24 11:32 promethazine (From Phenergan) Allergy Unknown Verified 12/17/24 11:32 Sulfa (Sulfonamide Allergy Unknown Verified 12/17/24 11:32 Antibiotics) Opioid HPI Opioid Management Most Recent Opioid Data: Last Pain Scale 6 Today, 11:12 Last ORT Total Score 0 12/02/23, 21:33 Last ORT Risk Category Low Risk 12/02/23, 21:33 Review of Systems ROS Status of ROS 10 or more systems reviewed and unremarkable except as noted in history and below [facility] Medical History (Updated 10/24/25 @ 13:54 by Donis Short, DO) Vertigo ?R42 - Dizziness and giddiness (ICD-10) Severe protein-calorie malnutrition ?E43 - Unspecified severe protein-calorie malnutrition (ICD-10) Systolic heart failure ?I50.20 - Unspecified systolic (congestive) heart failure (ICD-10) Hypertension ?I10 - Essential (primary) hypertension (ICD-10) Non-sustained ventricular tachycardia ?I47.29 - Other ventricular tachycardia (ICD-10) Chest pain ?R07.9 - Chest pain, unspecified (ICD-10) Essential (primary) hypertension ?I10 - Essential (primary) hypertension (ICD-10) ZAVALA (dyspnea on exertion) ?R06.09 - Other forms of dyspnea (ICD-10) Elevated troponin level not due myocardial infarction ?R79.89 - Other specified abnormal findings of blood chemistry (ICD-10) Atrial fibrillation ?I48.91 - Unspecified atrial fibrillation (ICD-10) Dehydration ?E86.0 - Dehydration (ICD-10) Upper respiratory infection ?J06.9 - Acute upper respiratory infection, unspecified (ICD-10) COPD (chronic obstructive pulmonary disease) ?J44.9 - Chronic obstructive pulmonary disease, unspecified (ICD-10) History of uterine cancer ?Z85.42 - Personal history of malignant neoplasm of other parts of uterus (ICD-10) Edema ?R60.9 - Edema, unspecified (ICD-10) Diabetes ?E11.9 - Type 2 diabetes mellitus without complications (ICD-10) HTN (hypertension) ?I10 - Essential (primary) hypertension (ICD-10) Surgical History (Updated 02/01/24 @ 21:12 by Argentina Keenan) S/P abdominal aortic aneurysm repair ?Z98.890 - Other specified postprocedural states (ICD-10) ?Z86.79 - Personal history of other diseases of the circulatory system (ICD-10) History of abdominal aortic aneurysm repair ?Z98.890 - Other specified postprocedural states (ICD-10) H/O: hysterectomy ?Z90.710 - Acquired absence of both cervix and uterus (ICD-10) Family History Father Family history of cancer Family history of COPD (chronic obstructive pulmonary disease) Mother Family history of diabetes mellitus Family history of hypertension Family history of myocardial infarction Family history of CHF (congestive heart failure) Social History Within the past year, how often did you have a drink containing alcohol: never Score interpretation: A score less than 3 is consistent with normal alcohol consumption. Smoking status: Former smoker Non-prescribed substance use: denies use Highest level of school completed/degree received: 10th grade Little interest or pleasure in doing things: not at all Feeling down, depressed, or hopeless: not at all Exam Narrative Exam Narrative: CONSTITUTIONAL: Awake and alert, answering questions appropriately SKIN: Was warm and dry. HEAD: There is a frontal hematoma over the left forehead. Otherwise, the head is atraumatic and normocephalic. No Santizo sign. EYES: EOMI. PERRLA. No subconjunctival hemorrhages. EARS, NOSE, THROAT: Neck was supple. Trachea midline. RESPIRATORY: Clear to auscultation bilaterally, no wheezes, crackles, or stridor, no use of accessory muscles CARDIOVASCULAR: Normal rate and regular rhythm. There is no S3, S4, murmur, rub. Radial pulses are 2+ and symmetrical. No chest wall tenderness or subcutaneous emphysema. GASTROINTESTINAL: There is tenderness to palpation of the left upper quadrant of the abdomen. No rebound tenderness or guarding. MUSCULOSKELETAL: No C/T/L spine midline tenderness without step-off or deformities. No pelvic tenderness. There is tenderness to palpation throughout the left lower ribs. There is no tenderness throughout all 4 extremities. NEUROLOGIC: 5/5 strength in all extremities. Sensation intact to light touch bilaterally. GCS 15. Facies were symmetrical. Constitutional Vital Signs, click to edit/add: Last Vital Signs Temp 97.8 F 12/17/24 10:51 Pulse 56 L 12/17/24 10:51 Resp 18 12/17/24 10:51 BP 160/78 H 12/17/24 10:51 Pulse Ox 97 12/17/24 11:06 O2 Del Method Room Air 12/17/24 11:06 Course Vital Signs Vital signs: Vital Signs Temperature 97.8 F 12/17/24 10:51 Pulse Rate 56 L 12/17/24 10:51 Respiratory Rate 18 12/17/24 10:51 Blood Pressure 160/78 H 12/17/24 10:51 Pulse Oximetry 95 12/17/24 10:51 Oxygen Delivery Method Room Air 12/17/24 10:51 Temperature 97.8 F 12/17/24 10:51 Pulse Rate 56 L 12/17/24 10:51 Respiratory Rate 18 12/17/24 10:51 Blood Pressure 160/78 H 12/17/24 10:51 Pulse Oximetry 97 12/17/24 11:06 Oxygen Delivery Method Room Air 12/17/24 11:06 Medical Decision Making [facility] Narrative Medical decision making narrative: Patient is an 79-year-old female on [facility] presenting to the emergency department after a fall from a standing height yesterday. She is complaining of pain to the left side of her ribs/abdomen and has a hematoma on her forehead. Her vital signs on arrival are within normal limits. She is afebrile and hemodynamically stable. Differential diagnose includes intracranial hemorrhage, left-sided rib fracture, splenic injury, or other traumatic injuries. Additionally, IV was established and laboratory studies were obtained show underlying etiology such as ACS, arrhythmia, anemia, or other electrolyte/metabolic derangement. Reed CT scan was ordered. 12 Lead EKG: Sinus bradycardia at a rate of 51 bpm. Normal axis. No ST segment elevations. QRS, PA, and QTc interval within normal limits. Final impression: Sinus bradycardia without evidence of acute myocardial ischemia Laboratory studies were unremarkable. No significant electrolyte or metabolic derangement. No evidence of acute kidney injury. No anemia, leukocytosis, or thrombocytopenia. No transaminitis or hyperbilirubinemia. Troponin nonelevated. BNP is slightly elevated compared to her baseline. Urinalysis negative for infection. CT chest/abdomen/pelvis independent reviewed interpreted myself and radiology demonstrated no acute traumatic injuries. CT head independently reviewed/interpreted by myself demonstrated no acute intracranial pathology or hemorrhage. CT C-spine demonstrated no acute osseous abnormalities. On reevaluation, patient states she feels well and is currently asymptomatic. She does state she has a history of dizziness, but this is chronic over the last 7 years. She is currently being worked up outpatient closely with her PCP. I did offer the patient placement as she has been having recurrent falls at home, however she adamantly declines going to a penitentiary. She is insistent she returns home to her . She does have a walker, cane, and wheelchair to help with ambulation. Her 7 children visit and help take care of her as well. She is aware of the risks associated with recurrent falls on Eliquis, including intracranial hemorrhage and hip fractures. However, she is determined to maintain her independence at home. I do believe the patient is stable for discharge. They were instructed to follow up with her PCP for further care. Return precautions were given including any new or worsening symptoms. Patient understands and agrees to the plan. FINAL IMPRESSION: #Acute fall on anticoagulation DISPOSITION: Discharged home CONDITION: Good Medical Records Medical records reviewed: Yes I reviewed the patient's medical records Lab Data Lab results reviewed: Yes I reviewed the patient's lab results Labs: Lab Results 12/17/24 12/17/24 Range/Units 11:40 13:28 WBC 10.6 (4.0-11.0) 10^3/uL RBC 4.19 L (4.20-5.40) 10^6/uL Hgb 12.7 (12.0-16.0) g/dL Hct 39.8 (36.0-48.0) % MCV 95.0 (81.0-99.0) fL MCH 30.3 (26.7-34.0) pg MCHC 31.9 (29.9-35.2) g/dL RDW 13.8 (11.0-15.0) % Plt Count 207 (150-450) 10^3/uL MPV 11.2 (9.5-13.5) fL Neut % (Auto) 84.2 H (43.0-75.0) % Lymph % (Auto) 9.1 L (20.5-60.0) % [place] % (Auto) 5.1 (1.7-12.0) % Eos % (Auto) 0.0 L (0.9-7.0) % Baso % (Auto) 0.1 L (0.2-2.0) % Neut # (Auto) 9.0 H (1.4-6.5) 10^3/uL Lymph # (Auto) 1.0 L (1.2-3.8) 10^3/uL [place] # (Auto) 0.5 (0.3-0.8) 10^3/uL Eos # (Auto) 0.0 (0.0-0.7) 10^3/uL Baso # (Auto) 0.0 (0.0-0.1) 10^3/uL Abs Immat Gran (auto) 0.16 H (0.00-0.03) 10^3/uL Imm/Tot Granulo (auto) 1.5 H (0.0-0.5) % PT 11.3 (9.0-11.6) sec INR 1.07 APTT 28.0 (22.3-36.2) sec Sodium 147 H (136-145) mmol/L Potassium 3.9 (3.5-5.1) mmol/L Chloride 107 (98-107) mmol/L Carbon Dioxide 28.6 (21.0-32.0) mmol/L Anion Gap 15.3 BUN 26.0 H (7.0-18.0) mg/dL Creatinine 1.29 H (0.55-1.02) mg/dL Est GFR ( Amer) 48 L (>=60 mL/min/1.73m^2) Est GFR (Non-Af Amer) 40 L (>=60 mL/min/1.73m^2) BUN/Creatinine Ratio 20.2 Glucose 125 H (74-106) mg/dL Calcium 9.4 (8.5-10.1) mg/dL Total Bilirubin 0.3 (0.2-1.0) mg/dL AST 18 (15-37) U/L ALT 28 (14-59) U/L Alkaline Phosphatase 143 H (46-116) U/L Troponin I High Sens 12.1 (4.0-51.3) pg/mL NT-Pro-B Natriuret Pep 08931.0 H* (<=1800.0) pg/mL Total Protein 6.5 (6.4-8.2) g/dL Albumin 3.5 (3.4-5.0) g/dL Globulin 3.0 g/dL Albumin/Globulin Ratio 1.2 Urine Color Lt. yellow (YELLOW) Urine Clarity Clear (CLEAR) Urine pH 6.0 (5.0-9.0) Ur Specific [place] <=1.005 A (1.005-1.025) Urine Protein Negative (NEG/TRACE) mg/dL Urine Glucose (UA) 500 A (NEGATIVE) mg/dL Urine Ketones Negative (NEGATIVE) mg/dL Urine Occult Blood Small A (NEGATIVE) Urine Nitrite Negative (NEGATIVE) Urine Bilirubin Negative (NEGATIVE) Urine Urobilinogen 0.2 (0.2-1.0) EU/dL Ur Leukocyte Esterase Negative (NEGATIVE) Imaging Data CT scan - abdomen: Attestation: I personally reviewed and interpreted this imaging study as follows: Radiologist's impression: ITS Impressions Abdomen/Pelvis CT 12/17/24 11:20 IMPRESSION: No evidence of acute traumatic injury within the chest, abdomen, or pelvis. No evidence of fracture. 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 Impression dictated by: Xavier Bonds M.D. 12/17/2024 1:26 PM Dictation Location: [facility] Electronically authenticated by: [id number] Y Date: 12/17/2024 13:[address] 12/17/24 11:20 IMPRESSION: No evidence of acute traumatic injury within the chest, abdomen, or pelvis. No evidence of fracture. 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 Impression dictated by: Xavier Bnods M.D. 12/17/2024 1:26 PM Dictation Location: [facility] Electronically authenticated by: [id number] Y Date: 12/17/2024 13:[address] 12/17/24 11:20 IMPRESSION: No acute intracranial pathology. Soft tissue swelling is noted in the frontal scalp. No acute cervical spine injury. Degenerative changes are noted in the cervical spine. Impression dictated by: Xavier Bonds M.D. 12/17/2024 1:10 PM Dictation Location: [facility] Electronically authenticated by: [id number] Y Date: 12/17/2024 13:[address] 12/17/24 12:15 IMPRESSION: No acute intracranial pathology. Soft tissue swelling is noted in the frontal scalp. No acute cervical spine injury. Degenerative changes are noted in the cervical spine. Impression dictated by: Xavier Bonds M.D. 12/17/2024 1:10 PM Dictation Location: [facility] Electronically authenticated by: [id number] Y Date: 12/17/2024 13:10 ECG Data Attestation: I personally reviewed and interpreted this ECG as follows: Discharge Plan Discharge Chief Complaint: Fall Clinical Impression: Fall Patient Disposition: Home, Self-Care Time of Disposition Decision: 13:54 Condition: Good Mode of Transportation: Private Vehicle Prescriptions / Home Meds: No Action Eliquis 5 mg Tablet 5 mg PO BID Qty: 60 11RF amiodarone 200 mg tablet 200 mg PO DAILY Spiriva Respimat 2.5 mcg/actuation mist 2 puff INHALATION DAILY PRN (Reason: shortness of breath) Patient Comments: states that the pt uses as needed ezetimibe 10 mg tablet 10 mg PO DAILY ropinirole 0.5 mg tablet 0.5 mg PO .QHS Rx Instructions: 1-3 HOURS BEFORE BEDTIME metoprolol tartrate 50 mg tablet 50 mg PO BID nitroglycerin 0.4 mg Tablet, Sublingual 0.4 mg sublingual Q5M PRN (Reason: Chest Pain) Qty: 20 11RF Patient Comments: has not used for awhile polyethylene glycol 3350 17 gram/dose powder 17 g PO DAILY triamcinolone acetonide 0.1 % cream 1 applic TOPICAL BID PRN (Reason: itching) memantine 21 mg capsule,sprinkle,ER 24hr 21 mg PO Q24H carvedilol 12.5 mg tablet 12.5 mg PO Q12H amoxicillin-pot clavulanate 875-125 mg tablet clopidogrel 75 mg tablet 75 mg PO DAILY Repatha SureClick 140 mg/mL pen injector 140 mg SUBCUT DAILY liothyronine 5 mcg tablet 10 mcg PO DAILY meclizine 25 mg tablet 25 mg PO BID PRN (Reason: dizziness) prednisone 60 mg PO DAILY Patient Comments: for 5 days Adbry 300 mg/2 mL auto-injector 300 mg subcut Q28D ferrous sulfate [Feosol] 325 mg (65 mg iron) tablet 325 mg PO BID albuterol sulfate 90 mcg/actuation HFA aerosol inhaler 2 puff INHALATION Q4H PRN (Reason: shortness of breath or wheezing) Patient Comments: takes as needed Print Language: Cuban Instructions: Fall Prevention for Older Adults (ED) Referrals: Velasquez Langley MD [Primary Care Provider, Family Practice] - 1 week
[2024-12-17 12:40] LABS: NT Pro B Type Natriuretic Pept 11284.0 pg/mL (<=1800.0)
[2024-12-17] MEDS: CARVEDILOL 12.5 MG TABLET PO (12:45)
[2024-12-17 13:45] LABS: Glucose Urine UA 500 mg/dL (NEGATIVE)
[2024-12-17 14:03] LABS: Cast Seen? NONE SEEN #/LPF (NONE SEEN); Crystals Seen? None Seen #/HPF (None Seen)
== END 2024-12-17 14:27 | disposition home or self-care (01) ==
PROVIDERS: Emergency Provider Student in an Organized Health Care Education/Training Program; PCP Family Medicine
DX: S00.83XA Contusion of other part of head, initial encounter (principal); W18.39XA Other fall on same level, initial encounter; Z79.01 Long term (current) use of anticoagulants; Z87.891 Personal history of nicotine dependence; Z91.81 History of falling; R07.81 Pleurodynia
CPT/HCPCS: 36415; 70450; 71260; 72125; 74177; 76376; 80053; 81001; 83880; 84484; 85025; 85610; 85730; 93005; 99284; Q9967

== ENCOUNTER 2024-12-29 11:43 | Inpatient (IN) | payer MEDICARE, SELFPAY ==
--- OUTSIDE RECORDS SUMMARY | 2024-12-20 05:30 | XMS_ITS ---
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 Role Phone Enio Langley Primary Care Provider [phone] Allergies Allergen (clinical drug ingredient) Drug/Non Drug Allergy documented on EMR Reaction Allergy Type Onset Date Status aspirin Aspirin Excessive Bleeding Drug Allergy ActiveatorvastatinAtorvastatin CalciumUnknownDrug AllergyActivemoxifloxacin AveloxUnknownDrug AllergyActiveciprofloxacinCiproUnknownDrug AllergyActive meperidineDemerolUnknownDrug AllergyActiveNubainUnknownDrug AllergyActive promethazinePhenerganUnknownDrug AllergyActivecefdinirCefdinirUnknownDrug AllergyActiveSubstance with sulfonamide structure and antibacterial mechanism of action (substance)Sulfa AntibioticsUnknownDrug AllergyActive REASON FOR VISIT Presents to office with for ER follow up. Fell at home. Still having pain under left breast Medications Medication SIG (Take, Route, Frequency, Duration) Notes Start Date End Date Status Repatha SureClick 140 MG/ML as directed Subcutan eous 5ActiverOPINIRole HCl 0.5 MGTAKE 1 TABLET BY MOUTH 1 TO 3 HOURS BEFORE BEDTIME; Duration: 90ActiveSpiriva HandiHaler 18 MCG1 capsule by inhaling the contents of the capsule using the HandiHaler device Inhalation Once a dayPRN 5ActiveAdbry 300 MG/2MLas directed Ltlhytdfaqqy56/18/2025Active Albuterol Sulfate HFA 108 (90 Base) MCG/ACTUSE 2 INHALATIONS BY MOUTH 3 TIMES DAILY; Duration: 90ActivePreserVision AREDS 2ActiveMemantine HCl ER 21 MGTAKE 1 CAPSULE BY MOUTH EVERY DAY; Duration: 90 daysActiveOndansetron 4 MG1 tablet on the tongue and allow to dissolve Orally qid15ActivePlavix 75 MG1 tablet Orally Once a day5ActivepredniSONE 20 MG3 tablets Orally Once a day; Duration: 5 days5ActiveEliquis 5 MGTAKE 1 TABLET BY MOUTH TWICE A DAY; Duration: 30ActiveEzetimibe 10 MGTAKE 1 TABLET BY MOUTH DAILY; Duration: 90 days ActiveFerrous Sulfate 325 (65 Fe) MG1 tablet Orally BID5Active Liothyronine Sodium 5 MCGTAKE 2 TABLETS ON AN EMPTY STOMACH ORALLY ONCE A DAY 30 DAYS; Duration: 90 daysActiveMeclizine HCl 25 MGTAKE 1-2 TABLETS BY MOUTH THREE TIMES A DAY NEEDED.; Duration: 15ActiveAmoxicillin-Pot Clavulanate 875-125 MG 1 tablet Orally every 12 hrs; Duration: 10 days5ActiveCarvedilol 12.5 MG1 tablet with food Orally Twice a day5ActiveAmiodarone HCl 200 MG1 tablet Orally Once a dayActive Social History Tobacco Use: Social History Observation Description Date Details (start date - stop date) Former Smoker NA - 02/24/2010 Tobacco Use/Smoking Question Answer Notes Patient is a former smoker When did you stop smoking?02/24/2010 Vital Signs Weight 170.8 lbs 12/20/2024 Height 63 in 12/20/2024 Blood pressure systolic 190 mm Hg 12/21/19 25 Blood pressure diastolic 78 mm Hg 025 BMI 30.25 kg/m2 12/20/2024 Procedures Procedure Date Ordered Date Performed Result Body Sit e Holter Monitor - 3 days up to 14 days 12/20/2024 N/A*CARDIO Stress Test - aRnda Handley12/20/2024N/A Encounters Encounter Location Date Provider Diagnosis [facility] [address] [place] [address] 12/20/2024 Enio Langley Near syncope R55 Assessments Encounter Date Diagnosis (ICD Code) Assessment Notes Treatment Notes Treatment Clinical Notes Section Notes 12/20/2024 Near syncope (ICD-10 - R55) Plan Of Treatment Pending Test Test Name Order Date Holter Monitor - 3 days up to 14 days *CARDIO Stress Test - Randa Nuclear 1 Next Appt Details Provider Name:Enio Langley, 10:30:00 AM, [address] [facility], [place], [address], Progress Notes * Earnest MAYNARDLissettB:[birth year] (79 yo F)Acc No.[id number]:12/20/2024 Progress Note Patient: Shayy HARMAN :?Velasquez Langley ([facility]), MDDOB:1945???Age: 79 Y???Sex:FemaleDate:12/20/2024Phone:[phone]:[address], [id number] In:10:22 AM ESTCheck Out:10:58 AM EST Subjective: * Chief Complaints: * P resents to office with for ER follow up. Fell at home. Still having pain under left breast * HPI: ???General:? SLipped and fell - doenst really reacll the fall but recalls everyting leading up to it Denide rito viera ador Chest pain. * ROS: ???EENT:?hearing changes?denies, denies.?visual changes?denies, denies.?non-healing mouth sores?denies, denies.?swollen glands or neck lumps denies, denies.?hoarseness?denies, denies.?sore throat?denies, denies.?difficulty swallowing?denies, denies.?nose bleeds?denies, denies.?nasal congestion?denies, denies.?ear ache?denies, denies.?ear discharge?denies, denies. ringing in ears?denies, denies.?light sensitivity?denies, denies.?eye pain denies, denies.?blurring?denies, denies.?eye irritation?denies, denies.?double vision?denies, denies.?vision loss?denies, denies.?General/Constitutional:?Sweats:?Denies, Denies.?Fatigue?denies, denies. Sleep problems?denies, denies.?Anorexia?denies, denies.?Malaise?denies, denies.?Weight loss?denies, denies.?Fatigue or Weakness?denies, denies.?Fever or Chills?denies, denies.?Cardiovascular:?Shortness of Breath w/lying flat?denies, denies.?Light headedness/dizziness?denies, denies.?Chest tightness/ heavy pressure?denies, denies. Swelling of legs, ankles, or feet?denies, denies.?Waking up with shortness of breath denies, denies.?Chest pain?denies, denies.?Palpitations?denies, denies. Weight gain?denies, denies.?Respiratory:?Chronic or frequent cough?denies, denies.?Coughing upblood?denies, denies.?Difficulty breathing?denies, denies.?Productive cough denies, denies.?Snoring?denies, denies.?Shortness of breath that awakens from sleep (PND)?denies, denies.?Chest pain?denies, denies.?Sputum production?denies, denies.?Wheezing?denies, denies.?Musculoskeletal:?Joint pain?denies, denies.?Joint Fluid?denies, denies.?Back pain?denies, denies.?Knee pain?denies, denies.?Neck pain?denies, denies.?Joint Stiffness?denies, denies.?Muscle cramps?denies, denies. Weakness of muscles?denies, denies.?Arthritis?denies, denies.?Muscle aches denies, denies.?Pain in shoulder(s)?denies, denies.?Swollen joints?denies, denies.? * Active Problem List B35.4 Tinea corporis Modified On:07/26/2022 Status:rlkkatqepQ94.0Drug-induced myopathy Modified On:07/26/2022 Status:ypezqrzylR96.511Pain in right shoulder Modified On:07/26/2022 Status:vxuabrpefC09.909Asthma Modified On:07/26/2022 Status:hmcjuhvqfG27.9GERD (gastroesophageal reflux disease) Modified On:07/26/2022 Status:myhxascelH90.30Arterio-venous malformation Modified On:07/26/2022 Status:roqlgugitY53.80Osteopenia Modified On:07/26/2022 Status:ruwvyvcasE66.092AOther injury of muscle, fascia and tendon of lower back, initial encounter Modified On:07/26/2022 Status:hauhvfajmA56.561Knee pain, right Modified On:07/26/2022 Status:rvjztlndtW10.0Edema leg Modified On:12/25/2022 Status:ooxcsurczM51.9Acute bronchitis Modified On:07/26/2022 Status:efmypwomdE48.2Plantar fasciitis Modified On:07/26/2022 Status:zfaeyurazJ82.9Meningioma Modified On:07/26/2022 Status:iomduatbaU42Jwjy syncope Modified On:07/26/2022 Status:zfcwzakzfJ70.3Over weight Modified On:07/26/2022 Status:nzkxjbuguZ99.1Dyshidrotic eczema Modified On:10/16/2022 Status:tmaxvtzxbU00.9Nevus Modified On:07/26/2022 Status:xukxngpiqB46.90Diverticular disease Modified On:07/26/2022 Status:tmddcsqejD00.2Leg cramp Modified On:07/26/2022 Status:qouqxidhcN41.00Acute cystitis Modified On:07/26/2022 Status:kcalxlyneB09.40Neuropathy, diabetic Modified On:07/26/2022 Status:fhdlvcvtmJ03.81At risk for falls Modified On:07/26/2022 Status:kxirgspwqD55.99Benign mammary dysplasia Modified On:07/26/2022 Status:lodxjmymcV18.9Diabetes mellitus Modified On:12/25/2022 Status:mcbzcjgdvG97Gqrcbol Modified On:06/10/2022 Status:nsnmpdsfqO81Gpctyds and collapse Modified On:06/23/2022 Status:ihieokypdA28.40Type 2 diabetes mellitus with diabetic neuropathy, unspecified Modified On:11/18/2022 Status:zdihruhczF78.2Cramp and spasm Modified On:06/23/2022 Status:olddutlvdT72.1Dyshidrosis [pompholyx] Modified On:06/23/2022 Status:loghenwraU94.00Constipation, unspecified Modified On:06/23/2022 Status:bivqypfzzF17.81Muscle weakness (generalized) Modified On:06/23/2022 Status:mnrznslytV09.9Benign neoplasm of meninges, unspecified Modified On:06/23/2022 Status:zibmpgwgfK50.0Localized edema Modified On:06/23/2022 Status:xqgfcacsoL48.30Blepharochalasis unspecified eye, unspecified eyelid Modified On:06/23/2022 Status:buwgecglyU19Ncmxlvuoa (primary) hypertension Modified On:06/23/2022 Status:cxpvscxdlR33.909Unspecified asthma, uncomplicated Modified On:06/23/2022 Status:dyiurmsegX83.30Arteriovenous malformation, site unspecified Modified On:06/23/2022 Status:tqqsmrqoeH43.80Other specified disorders of bone density and structure, unspecified site Modified On:06/23/2022 Status:savciliwiJ63.0Asymptomatic menopausal state Modified On:06/23/2022 Status:oqwywlaooF89.00Pure hypercholesterolemia, unspecified Modified On:06/23/2022 Status:acuoaimejM23.7Fibromyalgia Modified On:06/23/2022 Status:wkjkanbqzU58.3Polymyalgia rheumatica Modified On:06/23/2022 Status:jctrsksdsP27.90Diverticulosis of intestine, part unspecified, without perforation or abscess without bleeding Modified On:06/23/2022 Status:jxrsncgrxY92.9Eczema Modified On:08/22/2022 Status:rlllguuvhV49.8Easy bruisability Modified On:10/25/2022 Status:ydpregsxuR96.8Varicose veins Modified On:12/25/2022 Status:yhdvyagtoY41.1XXACervical strain Modified On:03/24/2023 Status:pvzavwftlG65.90Osteoarthritis Modified On:05/06/2023 Status:sxtegmqigI13.0Acute UTI Modified On:05/22/2023U Status:sihvkuneyM89.0Frequency of micturition Modified On:05/22/2023 Status:cgxnrnlwgT26.50Low back pain, unspecified Modified On:05/22/2023 Status:oezzvhprqM72.9Pruritic condition Modified On:11/12/2023 Status:lvnivrbetF51.0Sinus tachycardia Modified On:11/19/2023 Status:piccecezxW05.00Dyspnea Modified On:11/19/2023 Status:yiozkpmrzI79.9Gastroenteritis Modified On:11/19/2023U Status:yhfimxytsI82.91Atrial fibrillation Modified On:11/27/2023 Status:ueodxjzmnJ37.2Hypoglycemia Modified On:12/01/2023 Status:umvfiosnoK82.91Afib Modified On:12/03/2023 Status:amcaoqeeyG91.9Acute heart failure Modified On:12/04/2023 Status:jpmxfpfkgT35.01Ventricular fibrillation Modified On:10/14/2024W/U Status:rduasklysH58DI (high blood pressure) Modified On:01/08/2024U Status:zqxqsxgypQ32.9Advanced COPD Modified On:01/08/2024U Status:evzuceyzfG11.9Diabetes Modified On:01/08/2024U Status:wimbjrwvgF39.92Diverticulitis Modified On:03/26/2024U Status:dmsjvqlalA97.9Acute bronchiolitis Modified On:05/28/2024U Status:knjcnpbbgT80.90Advanced dementia Modified On:08/16/2024U Status:csncaulioP01.31Chronic kidney disease, stage 3a Modified On:08/16/2024U Status:qussnyrzwU99.9Hypothyroid Modified On:08/17/2024U Status:azsgtudirR21.11Right upper quadrant abdominal pain Modified On:08/31/2024U Status:jdmvbdgidF37.20Gallstones Modified On:09/10/2024U Status:confirmed * Medical History: * Surgical History: H ysterectomy Breast Cyst removed Bilateral Foot Surgery Right Long Finger and ring finger ardiac cath 12/17Aorta Patch- stents to kidney and bowel * Hospitalization/Major Diagno stic Procedure: s epsis -fib 12/17Aorta Patch 01/2024UT 2024 * Family History: F ather: . M other: , diagnosed with Diabetes. B rother(s): alive, diagnosed with Diabetes. S on(s): alive. D hildaer(s): alive. 4 brother(s) - healthy. 2 son(s) , 1 daughter(s) - healthy. . * Social History: ???Tobacco Use:?Tobacco Use/Smoking?Patient is a?former smoker ?When did you stop smoking??02/24/2010 * Medications: T akingAdbry(Tralokinumab-ldrm) 300 MG/2ML Solution Auto-injector as directed Subcutaneous Albuterol Sulfate HFA 108 (90 Base) MCG/ACT Aerosol Solution USE 2 INHALATIONS BY MOUTH 3 TIMES DAILY Amiodarone HCl 200 MG Tablet 1 tablet Orally Once a day Amoxicillin-Pot Clavulanate 875-125 MG Tablet 1 tablet Orally every 12 hrs Carvedilol 12.5 MG Tablet 1 tablet with food Orally Twice a day Eliquis(Apixaban) 5 MG Tablet TAKE 1 TABLET BY MOUTH TWICE A DAY Ezetimibe 10 MG Tablet TAKE 1 TABLET BY MOUTH DAILY Ferrous Sulfate 325 (65 Fe) MG Tablet 1 tablet Orally BID Liothyronine Sodium 5 MCG Tablet TAKE 2 TABLETS ON AN EMPTY STOMACH ORALLY ONCE A DAY 30 DAYS Meclizine HCl 25 MG Tablet TAKE 1-2 TABLETS BY MOUTH THREE TIMES A DAY NEEDED. Memantine HCl ER 21 MG Capsule Extended Release 24 Hour TAKE 1 CAPSULE BY MOUTH EVERY DAY Ondansetron 4 MG Tablet Disintegrating 1 tablet on the tongue and allow to dissolve Orally qid Plavix(Clopidogrel Bisulfate) 75 MG Tablet 1 tablet Orally Once a day predniSONE 20 MG Tablet 3 tablets Orally Once a day PreserVision AREDS 2 Repatha SureClick(Evolocumab) 140 MG/ML Solution Auto-injector as directed Subcutaneous rOPINIRole HCl 0.5 MG Tablet TAKE 1 TABLET BY MOUTH 1 TO 3 HOURS BEFORE BEDTIME Spiriva HandiHaler(Tiotropium [place]) 18 MCG Capsule 1 capsule by inhaling the contents of the capsule using the HandiHaler device Inhalation Once a day PRN Medication List reviewed and reconciled with the patientTaking Killian(Tralokinumab-ldrm) 300 MG/2ML Solution Auto-injector as directed Subcutaneous Taking Albuterol Sulfate HFA 108 (90 Base) MCG/ACT Aerosol Solution USE 2 INHALATIONS BY MOUTH 3 TIMES DAILY Taking Amiodarone HCl 200 MG Tablet 1 tablet Orally Once a day Taking Amoxicillin-Pot Clavulanate 875-125 MG Tablet 1 tablet Orally every 12 hrs Taking Carvedilol 12.5 MG Tablet 1 tablet with food Orally Twice a day Taking Eliquis(Apixaban) 5 MG Tablet TAKE 1 TABLET BY MOUTH TWICE A DAY Taking Ezetimibe 10 MG Tablet TAKE 1 TABLET BY MOUTH DAILY Taking Ferrous Sulfate 325 (65 Fe) MG Tablet 1 tablet Orally BID Taking Liothyronine Sodium 5 MCG Tablet TAKE 2 TABLETS ON AN EMPTY STOMACH ORALLY ONCE A DAY 30 DAYS Taking Meclizine HCl 25 MG Tablet TAKE 1-2 TABLETS BY MOUTH THREE TIMES A DAY NEEDED. Taking Memantine HCl ER 21 MG Capsule Extended Release 24 Hour TAKE 1 CAPSULE BY MOUTH EVERY DAY Taking Ondansetron 4 MG Tablet Disintegrating 1 tablet on the tongue and allow to dissolve Orally qid Taking Plavix(Clopidogrel Bisulfate) 75 MG Tablet 1 tablet Orally Once a day Taking predniSONE 20 MG Tablet 3 tablets Orally Once a day Taking PreserVision AREDS 2 Taking Repatha SureClick(Evolocumab) 140 MG/ML Solution Auto-injector as directed Subcutaneous Taking rOPINIRole HCl 0.5 MG Tablet TAKE 1 TABLET BY MOUTH 1 TO 3 HOURS BEFORE BEDTIME Taking Spiriva HandiHaler(Tiotropium [place]) 18 MCG Capsule 1 capsule by inhaling the contents of the capsule using the HandiHaler device Inhalation Once a day PRN Medication List reviewed and reconciled with the patient * Allergies: A spirin: Excessive Bleeding - Allergy - Criticality HighAtorvastatin CalciumDemerolAveloxCiproNubainPhenerganCefdinirSulfa Antibioticsno[Allergies Verified] Objective: * Vitals: W t:170.8lbs, Ht: 63 in, BP:190/78mm Hg, BMI:30.25Index, Ht-cm: 160.02 cm, Wt-k.47 kg. * Examination: ???Physical Exam: ?GENERAL:?well developed, well nourished, in no acute distress , well developed, well nourished, in no acute distress.?HEAD:?normocephalic/atraumatic , normocephalic/atraumatic. ?EYES:?pupils equal, round and reactive to light, conjunctivae and sclerae normal , pupils equal, round and reactive to light, conjunctivae and sclerae normal. ?EARS:?no deformity or lesion of external ear, canals and TM appear normal bilaterally, TM's intact, not inflamed with normal light reflex, hearing grossly normal to conversational speech , no deformity or lesion of external ear, canals and TM appear normal bilaterally, TM's intact, not inflamed with normal light reflex, hearing grossly normal to conversational speech.?NOSE:?no deformity, discharge, inflammation, or lesions , no deformity, discharge, inflammation, or lesions.?MOUTH:?mucous membranes moist, normal oropharynx and posterior pharynx without lesions or exudates, tongue normal, dentition normal , mucous membranes moist, normal oropharynx and posterior pharynx without lesions or exudates, tongue normal, dentition normal.?NECK:?neck supple, no masses or palpable cervical nodes, trachea midline, thyroid without nodules, masses, tenderness, or enlargement , neck supple, no massesor palpable cervical nodes, trachea midline, thyroid without nodules, masses, tenderness, or enlargement.?CHEST:?no chest wall deformity, no chest wall tenderness ,no chest wall deformity, no chest wall tenderness.?LUNGS:?normal respiratory effort and clear to auscultation, no wheezes, rales, or rhonchi, good air exchange , normal respiratory effort and clear to auscultation, no wheezes, rales, or rhonchi, good air exchange.?CARDIO:?regular rate and rhythm, normal S1 and S2, nor murmur, rub, or gallop , regular rate and rhythm, normal S1 and S2, nor murmur, rub, or gallop.?PULSES:?normal capillary refill , normal capillary refill. ?ABDOMEN:?soft, non-distended, non-tender, no masses , soft, non-distended, non-tender, no masses.?MUSCULOSKELETAL:?no deformity or scoliosis noted, normal range of motion, joints normal, no erythema, edema, effusion, or ecchymosis , no deformity or scoliosis noted, normal range of motion, joints normal, no erythema, edema, effusion, or ecchymosis.?EXTREMITY:?no clubbing, cyanosis, edema, or deformity withnormal ROM in both upper and lower bilateral extremities , no clubbing, cyanosis, edema, or deformity with normal ROM in both upper and lower bilateral extremities.?NEUROLOGIC:?grossly normal , grossly normal.?SKIN:?no rashes, ulcerations, or suspicious lesions , no rashes, ulcerations, or suspicious lesions.?LYMPH NODES:?no cervical adenopathy, nodes normal , no cervical adenopathy, nodes normal.?MENTAL STATUS:?alert and oriented x3, normal mood and affect , alert and oriented x3, normal mood and affect.? Assessment: * Assessment: 1.?Near syncope - R55 (Primary)??? Plan: * Treatment: ?Procedure: Holter Monitor - 3 days up to 14 days* 7 days ?Procedure: *CARDIO Stress Test - Lexiscan Nuclear * Procedure Codes: * Preventive Medicine: ??Screenings/Counseling:?BMI ACTION PLAN?Above Normal BMI Follow-up?Dietary management education, guidance, and counseling See treatment section of progress note for complete details of management plan. ?FALL RISK SCREENING?Fall Risk Assessment:?Two or more falls with injury in the past year ?Are you afraid of falling??Yes * * Sign off status: CompletedVisit Status:?CHK (Check Out) true * Provider: Toribio Langley ([facility])MD Date: Generated for Printing/Faxing/eTransmitting on:?01/01/2025 03:57 PM EST History and Physical Notes * HPI (History of Present Illness) CategorySub-CategoryDetailNotesCategory NotesGeneral SLipped and fell - doenst really reacll the fall but recalls everyting leading up to it Denide aylin veras ador Chest pain Examination CategorySub-CategoryDetailNotesCategory NotesPhysical ExamGENERAL:well developed, well nourished, in no acute distress , well developed, well nourished, in no acute distressHEAD:normocephalic/atraumatic , normocephalic/atraumaticEYES:pupils equal, round and reactive to light, conjunctivae and sclerae normal , pupils equal, round and reactive to light, conjunctivae and sclerae normalEARS:no deformity or lesion of external ear, canals and TM appear normal bilaterally, TM's intact, not inflamed with normal light reflex, hearing grossly normal to conversational speech , no deformity or lesion of external ear, canals and TM appear normal bilaterally, TM's intact, not inflamed with normal light reflex, hearing grossly normal to conversational speechNOSE:no deformity, discharge, inflammation, or lesions , no deformity, discharge, inflammation, or lesionsMOUTH:mucous membranes moist, normal oropharynx and posterior pharynx without lesions or exudates, tonguenormal, dentition normal , mucous membranes moist, normal oropharynx and posterior pharynx without lesions or exudates, tongue normal, dentition normalNECK:neck supple, no masses or palpable cervical nodes, trachea midline, thyroid without nodules, masses, tenderness, or enlargement , neck supple, no masses or palpable cervical nodes, trachea midline, thyroid without nodules, masses, tenderness, or enlargementCHEST:no chest wall deformity, no chest wall tenderness , no chest wall deformity, no chest wall tendernessLUNGS:normal respiratory effort and clear to auscultation, no wheezes, rales, or rhonchi, good air exchange , normal respiratory effort and clear to auscultation, no wheezes, rales, or rhonchi, good air exchangeCARDIO:regular rate and rhythm, normal S1 and S2, nor murmur, rub, or gallop , regular rate and rhythm, normal S1 and S2, nor murmur, rub, or gallopPULSES:normal capillary refill , normal capillary refillABDOMEN:soft, non- distended, non-tender, no masses , soft, non-distended, non-tender, no masses RECTAL:MUSCULOSKELETAL:no deformity or scoliosis noted, normal range of motion, joints normal, no erythema, edema, effusion, or ecchymosis , no deformity or scoliosis noted, normal range of motion, joints normal, no erythema, edema, effusion, or ecchymosisEXTREMITY:no clubbing, cyanosis, edema, or deformity with normal ROM in both upper and lower bilateral extremities , no clubbing, cyanosis, edema, or deformity with normal ROM in both upper and lower bilateral extremitiesNEUROLOGIC:grossly normal , grossly normalSKIN:no rashes, ulcerations, or suspicious lesions , no rashes, ulcerations, or suspicious lesionsLYMPH NODES:no cervical adenopathy, nodes normal , no cervical adenopathy, nodes normalMENTAL STATUS:alert and oriented x3, normal mood and affect , alert and oriented x3, normal mood and affect
--- OUTSIDE RECORDS SUMMARY | 2024-12-20 05:30 | XMS_ITS ---
Author Organization [facility] in [place] Address [address] [place] [address] Care Team Providers Care Retanner Name Role Phone Enio Langley Primary Care [...] Once a dayPRN 5ActiveAdbry 300 MG/2MLas directed Fbnjjuqnwwut37/18/2025Active Albuterol Sulfate HFA 108 (90 Base) MCG/ACTUSE [...] 14 days 12/20/2024 N/A*CARDIO Stress Test - Randa Handley12/20/2024N/A Encounters Encounter Location Date Provider Diagnosis [facility] [address] [place] [address] 12/20/2024 Enio Langley Near syncope R55 Assessments Encounter Date Diagnosis (ICD Code) Assessment Notes Treatment Notes Treatment Clinical Notes Section Notes 12/20/2024 Near syncope (ICD-10 - R55) Plan Of Treatment Pending Test Test Name Order Date Holter Monitor - 3 days up to 14 days *CARDIO Stress Test - Randa Nuclear 1 Next Appt Details Provider Name:Enio Langley, 10:30:00 AM, [address] [facility], [place], [address], Progress Notes * Earnest MAYNARDLissettB:[birth year] (79 yo F)Acc No.[id number]:12/20/2024 Progress Note Patient: Shayy HARMAN :?Velasquez Langley ([facility]), MDDOB:1945???Age: 79 Y???Sex:FemaleDate:12/20/2024Phone:[phone]:[address] [place], [id number] In:10:22 AM ESTCheck Out:10:58 AM EST Subjective: [...] Problem List B35.4 Tinea corporis Modified On:07/26/2022 Status:aersmgrxtP41.0Drug-induced myopathy Modified On:07/26/2022 Status:lexrkpfuqF26.511Pain in right shoulder Modified On:07/26/2022 Status:utdyejlldW07.909Asthma Modified On:07/26/2022 Status:cfgfdhawtO45.9GERD (gastroesophageal reflux disease) Modified On:07/26/2022 Status:vukmoujgdM25.30Arterio-venous malformation Modified On:07/26/2022 Status:rylmumvtzN09.80Osteopenia Modified On:07/26/2022 Status:tuhbnoevjF23.092AOther injury of muscle, fascia and tendon of lower back, initial encounter Modified On:07/26/2022 Status:atqympubkU51.561Knee pain, right Modified On:07/26/2022 Status:ynzdojzdzO13.0Edema leg Modified On:12/25/2022 Status:qevbwtmweS08.9Acute bronchitis Modified On:07/26/2022 Status:qrzishrexH11.2Plantar fasciitis Modified On:07/26/2022 Status:bxhsihpsfT67.9Meningioma Modified On:07/26/2022 Status:xrocqtwlbJ20Jkph syncope Modified On:07/26/2022 Status:rndfaosxyT09.3Over weight Modified On:07/26/2022 Status:mblodxghbT36.1Dyshidrotic eczema Modified On:10/16/2022 Status:jymhrcglqK96.9Nevus Modified On:07/26/2022 Status:iknfakqfzJ86.90Diverticular disease Modified On:07/26/2022 Status:wfwuqlknvZ83.2Leg cramp Modified On:07/26/2022 Status:behgrdlxgD87.00Acute cystitis Modified On:07/26/2022 Status:apktbubxrK91.40Neuropathy, diabetic Modified On:07/26/2022 Status:xouzcvjqaY60.81At risk for falls Modified On:07/26/2022 Status:steacjmytL52.99Benign mammary dysplasia Modified On:07/26/2022 Status:frezkaezpV93.9Diabetes mellitus Modified On:12/25/2022 Status:wylcocwwqF88Mnfdcfm Modified On:06/10/2022 Status:gqpxcvwhgA58Aztozkr and collapse Modified On:06/23/2022 Status:nbttrigdnL21.40Type 2 diabetes mellitus with diabetic neuropathy, unspecified Modified On:11/18/2022 Status:qakhrufcsP03.2Cramp and spasm Modified On:06/23/2022 Status:lcmohompiQ51.1Dyshidrosis [pompholyx] Modified On:06/23/2022 Status:zcqgmuxuxW38.00Constipation, unspecified Modified On:06/23/2022 Status:viltlgpxjQ56.81Muscle weakness (generalized) Modified On:06/23/2022 Status:onpeiavgsM87.9Benign neoplasm of meninges, unspecified Modified On:06/23/2022 Status:pysryioqpW25.0Localized edema Modified On:06/23/2022 Status:haknbukalT53.30Blepharochalasis unspecified eye, unspecified eyelid Modified On:06/23/2022 Status:ekfziofuuW88Ikslwijhg (primary) hypertension Modified On:06/23/2022 Status:iidixlmapE38.909Unspecified asthma, uncomplicated Modified On:06/23/2022 Status:zsnaoduytX35.30Arteriovenous malformation, site unspecified Modified On:06/23/2022 Status:vvzciaxbhS20.80Other specified disorders of bone density and structure, unspecified site Modified On:06/23/2022 Status:wfajmcsueM19.0Asymptomatic menopausal state Modified On:06/23/2022 Status:qivlxpdheK14.00Pure hypercholesterolemia, unspecified Modified On:06/23/2022 Status:nnotrxmkkH27.7Fibromyalgia Modified On:06/23/2022 Status:mhikdsylcC55.3Polymyalgia rheumatica Modified On:06/23/2022 Status:uvhdbqlbeA79.90Diverticulosis of intestine, part unspecified, without perforation or abscess without bleeding Modified On:06/23/2022 Status:grkefotgwC29.9Eczema Modified On:08/22/2022 Status:dugptmgboZ97.8Easy bruisability Modified On:10/25/2022 Status:tpngajrwnQ40.8Varicose veins Modified On:12/25/2022 Status:pptphbaerS85.1XXACervical strain Modified On:03/24/2023 Status:nwbxgbjgiE75.90Osteoarthritis Modified On:05/06/2023 Status:qnfkthnueR77.0Acute UTI Modified On:05/22/2023U Status:gjuffrnyoS14.0Frequency of micturition Modified On:05/22/2023 Status:wrnhimzazZ52.50Low back pain, unspecified Modified On:05/22/2023 Status:lvjgkfakkG31.9Pruritic condition Modified On:11/12/2023 Status:ohjxrflmfO60.0Sinus tachycardia Modified On:11/19/2023 Status:kafmanmgvO59.00Dyspnea Modified On:11/19/2023 Status:lfixggwbjO87.9Gastroenteritis Modified On:11/19/2023U Status:szbqznalnL82.91Atrial fibrillation Modified On:11/27/2023 Status:newxqyihmH72.2Hypoglycemia Modified On:12/01/2023 Status:enqixipaxU79.91Afib Modified On:12/03/2023 Status:xyazqqdgwL82.9Acute heart failure Modified On:12/04/2023 Status:vdadujlveQ90.01Ventricular fibrillation Modified On:10/14/2024W/U Status:sgzrsxuezI22HK (high blood pressure) Modified On:01/08/2024U Status:mgocrghrfG22.9Advanced COPD Modified On:01/08/2024U Status:zwefdvadnO85.9Diabetes Modified On:01/08/2024U Status:ihohfxwmxL39.92Diverticulitis Modified On:03/26/2024U Status:mfdsfxzipP48.9Acute bronchiolitis Modified On:05/28/2024U Status:fxaafbbekW47.90Advanced dementia Modified On:08/16/2024U Status:mpzkauzkuM28.31Chronic kidney disease, stage 3a Modified On:08/16/2024U Status:hxaswsmzxA44.9Hypothyroid Modified On:08/17/2024U Status:tqduewdtyJ06.11Right upper quadrant abdominal pain Modified On:08/31/2024U Status:sngymbovxU56.20Gallstones Modified On:09/10/2024U Status:confirmed * Medical History: * [...] TO 3 HOURS BEFORE BEDTIME Spiriva HandiHaler(Tiotropium [place]) 18 MCG Capsule 1 capsule by inhaling [...] 3 HOURS BEFORE BEDTIME Taking Spiriva HandiHaler(Tiotropium [place]) 18 MCG Capsule 1 capsule by inhaling [...] (Check Out) true * Provider: Toribio Langley ([facility])MD Date: Generated for Printing/Faxing/eTransmitting on:?01/02/2025 12:45 PM EST History and Physical Notes * [...]
--- OUTSIDE RECORDS SUMMARY | 2024-12-20 05:30 | XMS_ITS ---
Author Organization [facility] in [place] Address [address] [place] [address] Care Team Providers Care Pharmacy Assistant Name Role Phone Enio Langley Primary Care Provider [phone] Allergies Allergen (clinical drug ingredient) Drug/Non Drug [...] Once a dayPRN 5ActiveAdbry 300 MG/2MLas directed Whofgjndnxut70/18/2025Active Albuterol Sulfate HFA 108 (90 Base) MCG/ACTUSE [...] Handley12/20/2024N/A Encounters Encounter Location Date Provider Diagnosis [facility] [address] [place] [address] 12/20/2024 Enio Langley Near syncope R55 Assessments Encounter Date Diagnosis (ICD Code) Assessment Notes Treatment Notes Treatment Clinical Notes Section Notes 12/20/2024 Near syncope (ICD-10 - R55) Plan Of Treatment Pending Test Test Name Order Date Holter Monitor - 3 days up to 14 days *CARDIO Stress Test - Lexiscan Nuclear 1 Progress Notes * Carlos MAYNARDB:[birth year] 42 (79 yo F)Acc No.[id number]:12/20/2024 Progress Note Patient: Shayy HARMAN :?Velasquez Langley ([facility]), MDDOB:1945???Age: 79 Y???Sex:FemaleDate:12/20/2024Phone:[phone]:[address], [id number] In:10:22 AM ESTCheck Out:10:58 AM EST Subjective: * Chief Complaints: * P resents to office with for ER follow up. Fell at home. Still having pain under left breast * HPI: ???General:? SLipped and fell - doenst really reacll the fall but recalls everyting leading up to it Denide rito viera addenice Chest pain. * ROS: ???EENT:?hearing changes?denies, denies.?visual [...] Problem List B35.4 Tinea corporis Modified On:07/26/2022 Status:cqxwkrlxbJ84.0Drug-induced myopathy Modified On:07/26/2022 Status:mpyhqlswaB55.511Pain in right shoulder Modified On:07/26/2022 Status:vbnnloisiK88.909Asthma Modified On:07/26/2022 Status:xyyobroyaU81.9GERD (gastroesophageal reflux disease) Modified On:07/26/2022 Status:stqhcbheaO07.30Arterio-venous malformation Modified On:07/26/2022 Status:oivnmzsskB06.80Osteopenia Modified On:07/26/2022 Status:cehdavatxT38.092AOther injury of muscle, fascia and tendon of lower back, initial encounter Modified On:07/26/2022 Status:rkwtroqihB43.561Knee pain, right Modified On:07/26/2022 Status:lhksgzlhiJ68.0Edema leg Modified On:12/25/2022 Status:ctftpcuqyD58.9Acute bronchitis Modified On:07/26/2022 Status:mitvogopgZ97.2Plantar fasciitis Modified On:07/26/2022 Status:ftugymsqsB56.9Meningioma Modified On:07/26/2022 Status:vlcpqljrwI88Gihf syncope Modified On:07/26/2022 Status:fosnfgwmsJ50.3Over weight Modified On:07/26/2022 Status:uiruvcazvA07.1Dyshidrotic eczema Modified On:10/16/2022 Status:pocgjnolhG97.9Nevus Modified On:07/26/2022 Status:imzibvpvmD66.90Diverticular disease Modified On:07/26/2022 Status:ccmpldnroY48.2Leg cramp Modified On:07/26/2022 Status:uvkzfmwdbO50.00Acute cystitis Modified On:07/26/2022 Status:meykewtdeT07.40Neuropathy, diabetic Modified On:06/02/2023W/U Status:fdeqvbctzM10.81At risk for falls Modified On:07/26/2022 Status:zrmfrfqynG08.99Benign mammary dysplasia Modified On:07/26/2022 Status:obyugxjsyC73.9Diabetes mellitus Modified On:12/25/2022 Status:rezgdxiouJ63Nwfqddy Modified On:06/10/2022 Status:pqsiovfgbG09Jrtlmtj and collapse Modified On:06/23/2022 Status:vwzyjhutqR29.40Type 2 diabetes mellitus with diabetic neuropathy, unspecified Modified On:11/18/2022 Status:hpjowhntdP49.2Cramp and spasm Modified On:06/23/2022 Status:hgtpunikuJ95.1Dyshidrosis [pompholyx] Modified On:06/23/2022 Status:mlglhasyaA11.00Constipation, unspecified Modified On:06/23/2022 Status:egezrombxQ05.81Muscle weakness (generalized) Modified On:06/23/2022 Status:ejnfvfshjY68.9Benign neoplasm of meninges, unspecified Modified On:06/23/2022 Status:ovtdbzmakW68.0Localized edema Modified On:06/23/2022 Status:ehvonobqtO71.30Blepharochalasis unspecified eye, unspecified eyelid Modified On:06/23/2022 Status:rylnlmnitA36Aexcggypx (primary) hypertension Modified On:06/23/2022 Status:kpvmfpcszV06.909Unspecified asthma, uncomplicated Modified On:06/23/2022 Status:seitylpxgZ36.30Arteriovenous malformation, site unspecified Modified On:06/23/2022 Status:wsjyowogcF44.80Other specified disorders of bone density and structure, unspecified site Modified On:06/23/2022 Status:eaxobsyvmB02.0Asymptomatic menopausal state Modified On:06/23/2022 Status:oxwguuqmhF90.00Pure hypercholesterolemia, unspecified Modified On:06/23/2022 Status:zkrnrvatpA29.7Fibromyalgia Modified On:06/23/2022 Status:vdudthujyL01.3Polymyalgia rheumatica Modified On:06/23/2022 Status:woslssmxqH70.90Diverticulosis of intestine, part unspecified, without perforation or abscess without bleeding Modified On:06/23/2022 Status:zcwnnuuizG71.9Eczema Modified On:08/22/2022 Status:azliydijuY75.8Easy bruisability Modified On:10/25/2022 Status:mbrrgmcncV43.8Varicose veins Modified On:12/25/2022 Status:jutkzkyssF95.1XXACervical strain Modified On:03/24/2023 Status:rwecrzkxdO10.90Osteoarthritis Modified On:05/06/2023 Status:gfrfpingkN21.0Acute UTI Modified On:05/22/2023 Status:rdkdczpoqA05.0Frequency of micturition Modified On:05/22/2023 Status:qqexcxpvnS85.50Low back pain, unspecified Modified On:05/22/2023 Status:wciqnmvcwA26.9Pruritic condition Modified On:11/12/2023 Status:nljjmuujyV32.0Sinus tachycardia Modified On:11/19/2023 Status:keeevbdyjP73.00Dyspnea Modified On:11/19/2023 Status:wydnthphyZ05.9Gastroenteritis Modified On:11/19/2023 Status:mbnjytdhdK99.91Atrial fibrillation Modified On:11/27/2023 Status:iroydnvwhX64.2Hypoglycemia Modified On:12/01/2023 Status:aliwzhpimQ26.91Afib Modified On:12/03/2023 Status:umkuqesfhG02.9Acute heart failure Modified On:12/04/2023 Status:jkrfitiibI97.01Ventricular fibrillation Modified On:12/08/2023 Status:ikjfsapptK91SM (high blood pressure) Modified On:01/08/2024 Status:rnndsdfavT83.9Advanced COPD Modified On:01/08/2024 Status:ljanxyxwgO05.9Diabetes Modified On:01/08/2024/U Status:ljzabrnunV32.92Diverticulitis Modified On:03/26/2024/U Status:icxrxcmdhI16.9Acute bronchiolitis Modified On:05/28/2024/U Status:tjtzhkukuG28.90Advanced dementia Modified On:08/16/2024/U Status:jmxihtdvpV43.31Chronic kidney disease, stage 3a Modified On:08/16/2024/U Status:skylcqragF59.9Hypothyroid Modified On:08/17/2024/U Status:oygkqjtpwI59.11Right upper quadrant abdominal pain Modified On:08/31/2024/U Status:bvlymfnwvB42.20Gallstones Modified On:09/10/2024/U Status:confirmed * Medical History: * Surgical History: [...] diagnosed with Diabetes. S on(s): alive. D ida(s): alive. 4 brother(s) - healthy. 2 son(s) [...] TO 3 HOURS BEFORE BEDTIME Spiriva HandiHaler(Tiotropium [place]) 18 MCG Capsule 1 capsule by inhaling [...] 3 HOURS BEFORE BEDTIME Taking Spiriva HandiHaler(Tiotropium [place]) 18 MCG Capsule 1 capsule by inhaling [...] (Check Out) true * Provider: Toribio Langley ([facility])MD Date: 1 Generated for Printing/Faxing/eTransmitting on:?12/30/2024 07:21 AM EST History and Physical Notes * HPI (History of Present Illness) CategorySub-CategoryDetailNotesCategory NotesGeneral SLipped and fell - doenst really reacll the fall but recalls everyting leading up to it Denrito freeman ador Chest pain Examination CategorySub-CategoryDetailNotesCategory NotesPhysical ExamGENERAL:well [...]
--- OUTSIDE RECORDS SUMMARY | 2024-12-22 13:00 | XMS_ITS | Encounter Summary ---
Author Organization [facility] Address [address] [place] [address] Care Team Providers Care Clinical Laboratory Manager Name Role Phone Velasquez Langley MD Primary Care Provider [phone] Reason for Visit * ReasonCommentsFollow-upPatient is here today for a 6 month follow up with labs and PFT. Patient was recently in the ER fora fallNSVTAtrial Fibrillation Aneurysm of infrarenal abdominal aortaHypertensionCoronary Artery Disease Congestive Heart FailurePost-op Aneurysm RepairAbdominal aortic aneurysm DizzinessDizziness/lightheaded which caused her to fallFatigueVery fatigued Shortness of BreathSOB/ZAVALA has increasedEdemaBilateral leg swelling Encounter Details DateTypeDepartmentCare Team (Latest Contact Info)Xhbsthgszmc30/29/2025 2:00 PM EDTOffice Visit [facility] [address] [place] [address] Bhavesh Fulton MD [address] MS:[address] [place] [address] Chronic diastolic heart failure (CMS/HCC) (Primary Dx); Coronary artery disease involving craig coronary artery of craig heart without angina pectoris; Paroxysmal atrial fibrillation (CMS/HCC); V-tach (CMS/HCC); Abdominal aortic aneurysm (AAA) without rupture, unspecified part; Mesenteric artery stenosis; Benign hypertensive heart disease without congestive heart failure; Pure hypercholesterolemia; Type 2 diabetes mellitus without complication, without long-term current use of insulin (CMS/HCC) Social History Tobacco UseTypesPacks/DayYears UsedDateSmoking Tobacco: FormerCigarettes Smokeless Tobacco: NeverAlcohol UseStandard Drinks/WeekCommentsNever0 (1 standard drink = 0.6 oz pure alcohol)[facility] UtilitiesAnswerDate RecordedIn the past 12 months has the electric, gas, oil, or water company threatened [...] part ner or ex-partner?No08/26/2024Social Connection and Isolation PanelAnswerDate RecordedIn a typical week, how many times do you talk on the phone with family, friends, or neighbors?More than three times a week01/27/2024How often do you get together with friends or relatives?More than three times a week01/27/2024How often do you attend samaritan or orthodox services?Never01/27/2024o you belong to any clubs or organizations such as samaritan groups, unions, fraternal or athletic groups, or school groups?No01/27/2024How often do you attend meetings of the clubs or organizations you belong to?Never01/27/2024re you , , , , never , or living with a partner?Ycgoqxg2201/27/2024 AUDIT-CAnswerDate RecordedQ1: How often do you have a drink containing alcohol? Never01/27/2024Q2: How many drinks containing alcohol do you have on a typical day when you are drinking?Patient does not drink01/27/2024Q3: How often do you have six or more drinks on one occasion?Never01/27/2024Overall Financial Resource Strain (CARDIA)AnswerDate RecordedHow hard is it for you to pay for the very basics like food, housing, medical care, and heating?Not hard at all 08/26/2024PHQ-2AnswerDate RecordedPatient Health Questionnaire-2 Score0 05/11/2024[facility]inter[facility] healthcare [place] [facility] - Occupational Stress QuestionnaireAnswerDate RecordedDo you feel stress - tense, restless, nervous, or anxious, or unable to sleep at night because yourmind is troubled all the time - these days?To some yyhker7601/27/2024UT Safety & EnvironmentAnswerDate RecordedFear of Current or Ex-PartnerNot on file04/17/2023Emotionally AbusedNot on file04/17/2023hysically AbusedNot on file04/17/2023Sexually AbusedNot on file04/17/2023hysically or Sexually AbusedNot on file04/17/2023Transportation AnswerDate RecordedIn the past 12 months, has lack [...] were you homeless or living in a mcfp (including now)?No08/26/2024 Hunger Vital SignAnswerDate RecordedWithin the past 12 months, you worried that your food would run out before you got the money to buymore.Never true08/26/2024 Within the past 12 months, the food you bought just didn't last and you didn't have money to get more.Never true08/26/2024CommentsNoSex and Gender InformationValueDate RecordedSex Assigned at PxuloPzxthk65/03/2024 11:08 AM EST Legal JgoYkpvgx20/29/2022 11:01 PM EDTGender GjzujrtfWkcpdc31/03/2024 11:08 AM ESTSexual OrientationHeterosexual or Hedsmxqd26/03/2024 11:08 AM ESTdocumented as of this encounter Last Filed Vital Signs Vital SignReadingTime TakenCommentsBlood Apxkwrkn900/6712/22/2024 2:12 PM EDT Ydtal124412/22/2024 2:12 PM EDTTemperature--Respiratory Rate--Oxygen Igjbpaujth28% 12/22/2024 2:12 PM EDTInhaled Oxygen Concentration--Xmrgze41.6 kg (171 lb) 12/22/2024 2:12 PM UNGNcxokm161 cm (5' 3 )12/22/2024 2:12 PM EDTBody Mass Index 30.291 2:12 PM EDTdocumented in this encounter Functional Status * BPAnswerDate of OxjzpnzrwjEvmrpr076/6712/22/2024 2:12 PM EDGuerline Ortiz MA * PulseAnswerDate of NgmlihsgcoKolwio4488/29/2025 2:12 PM EDGuerline Ortiz MA * Patient PositionAnswerDate of EwqbgulhetVprlpwBdtqhnk24/29/2025 2:12 PM EDT Guerline Carlos MA * BPAnswerDate of NbneljhbzoDexrzp472/6712/22/2024 2:12 PM EDGuerline Ortiz MA * PulseAnswerDate of MouyqtkfyxMwdvej9565/29/2025 2:12 PM EDGuerline Ortiz MA * MeG9JendvfJbrw of FlkbsnhxhqZcmfyp9947/29/2025 2:12 PM EDGuerline Ortiz MA * BP LocationAnswerDate of AssessmentAuthorLeft arm12/22/2024 2:12 PM EDT Guerline Carlos MA * Patient PositionAnswerDate of WyivviostoPtwffyXpdzfcb92/29/2025 2:12 PM EDT Guerline Carlos MA documented as of this encounter Progress Notes * Bhavesh Fulton MD - 12/22/2024 2:00 PM EDT Images from the original note were not included. [place] [facility] Subjective Shayy Johnson is a 79 y.o. year old female patient being seen for follow-up visit on chronic diastolic heart failure, nonobstructive coronary artery disease, PAD, nonsustained ventricular tachycardia, hypertension, and hyperlipidemia Patient Active Problem List Diagnosis NSVT (nonsustained ventricular tachycardia) ([facility]) Dyspnea on exertion Osteoarthritis Diabetes mellitus (CMS/HCC) History of urinary tract infection Bladder outlet obstruction Postinfective urethral stricture in female Acute intractable headache Aneurysm of infrarenal abdominal aorta Asthma Bladder infection Chronic obstructive pulmonary disease (CMS/HCC) Dysuria Female cystocele Retention of urine Flank pain Gross hematuria Hypercholesterolemia Hypokalemia Moderate malnutrition Other specified postprocedural states Postoperative pain of extremity Right hand pain Stress incontinence of urine Urge incontinence of urine COPD without exacerbation ([facility]/HCC) Atrial fibrillation ([facility]/HCC) Acute respiratory failure with hypoxia ([facility]) Benign hypertensive heart disease without congestive heart failure Coronary artery disease involving craig coronary artery of craig heart without angina pectoris AAA (abdominal aortic aneurysm) without rupture Chronic diastolic heart failure ([facility]) Mesenteric artery stenosis Gallbladder colic HPI 12/22/2024 Patient is here today for follow-up visit. She reports worsening shortness of breath. She is not taking Lasix any more. She reports that her blood pressure at home has been in the 150s to 160s. She denies eating high salt diet. She has chronic vertigo and last Willi it was bad that she fell and she has bruises on her face. Due to the shortness of breath she had a course of antibiotics and steroids per her PCP however she did not see significant improvement. The day she went to the emergency room because of the full 12/17/2024 she had a chest CT which did not show acute changes in the lungs but she had emphysematous changes. Also her BNP was significantly elevated 11,284 with creatinine of 1.29 but the patient is not aware of it. She also noted legs edema after she took the steroid course. She denies orthopnea or paroxysmal nocturnal dyspnea. She denies chest pain or palpitation 06/18/2024 Patient is here today with her for follow-up visit. She states that she has been doing wellfrom the cardiac point of view. She denies any chest discomfort at rest or with exertion. She admits mild exertional dyspnea which is chronic without progression. She denies orthopnea or paroxysmal nocturnal dyspnea or palpitations. She states that occasionally she has legs edema particularly toward the end of the day and she uses Lasix on as needed basis probably once every 1 week or 10 days. She reports unsteadiness and chronic vertigo and tendency to fall even when she uses the cane but better with using a walker She reports drinking enough water. 03/26/2024 Patient with history of chronic diastolic heart failure, history of AAA, s/p EVAR, celiac and SMA stenosis status post stents placement, nonsustained ventricular tachycardia, paroxysmal A-fib, nonobstructive coronary artery disease, hypertension, hyperlipidemia and diabetes mellitus. She is here today for follow-up visit. She states that she has been doing well and she denies any chest pain at rest or with exertion. She reports some shortness of breath when she walks for long distance. She denies orthopnea or paroxysmal nocturnal dyspnea or dizziness or palpitations. She admitslittle edema at times toward the end of the day. She has not taken Lasix for a while. She takes it only as needed for legs edema. No legs discomfort with exertion. She is complaining of left-sided abdominal pain since she had stents placed in the celiac and SMA arteries but she is able to eat well without any nausea or vomiting or abdominal distention or changein her bowel movement. No blood in her stool. No weight loss. Of note the patient had a prior hysterectomy and prior surgery for adhesion lysis. Review of Systems Respiratory: Positive for shortness of breath. All systems were reviewed and they were negative except for the positive findings noted above in the history Past Medical History: Diagnosis Date Abdominal aortic aneurysm (AAA) without rupture Abnormal ECG Afib (CMS/HCC) Aneurysm Arrhythmia Atrial fibrillation (CMS/HCC) Celiac artery stenosis CHF (congestive heart failure) (CMS/HCC) COPD (chronic obstructive pulmonary disease) (CMS/HCC) Coronary artery disease Diabetes mellitus (CMS/HCC) Endometrial cancer (CMS/HCC) Hyperlipidemia Hypertension Hypothyroidism NSVT (nonsustained ventricular tachycardia) (CMS/HCC) Paroxysmal atrial fibrillation (CMS/HCC) PONV (postoperative nausea and vomiting) Superior mesenteric artery stenosis UTI (urinary tract infection) Past Surgical History: Procedure Laterality Date ARTERIAL ANEURYSM REPAIR 01/28/2024 CARDIAC CATHETERIZATION Right 12/05/2023 HYSTERECTOMY IR ANGIOGRAM SMA 02/05/2024 MESENTRIC ANGIOGRAM No family history on file. Social History Tobacco Use Smoking status: Former Types: Cigarettes Smokeless tobacco: Never Substance Use Topics Alcohol use: Never Drug use: Never Allergies Allergies Allergen Reactions Demerol [Meperidine] Anaphylaxis Aspirin Unknown Avelox [Moxifloxacin] Other Had to bring me back. Had to pump my heart Cefdinir Unknown Nalbuphine Itching and Unknown Other Reaction(s): Itching Promethazine Unknown Other Reaction(s): Unknown Reaction Uqgjeag-Eut-Xif Reductase Inhibitors Unknown Sulfa (Sulfonamide Antibiotics) Itching and Unknown Other Reaction(s): Itching Sulfur Unknown Medications Current Outpatient Medications: Adbry 300 mg/2 mL auto-injector, Inject 300 mg under the skin every 14 (fourteen) days., Disp: , Rfl: albuterol 90 mcg/actuation inhaler, 2 puffs if needed., Disp: , Rfl: amiodarone (Pacerone) 200 mg tablet, Take 1 tablet (200 mg) by mouth in the morning., Disp: 90 tablet, Rfl: 3 apixaban (Eliquis) 2.5 mg tablet, Take 2 tablets (5 mg) by mouth two times daily for 240 doses., Disp: 120 tablet, Rfl: 3 carvedilol (Coreg) 6.25 mg tablet, Take 1 tablet (6.25 mg) by mouth two times daily., Disp: 180 tablet, Rfl: 3 clopidogrel (Plavix) 75 mg tablet, Take 1 tablet (75 mg) by mouth in the morning for 120 doses., Disp: 30 tablet, Rfl: 3 evolocumab (Repatha SureClick) 140 mg/mL pen injector, Inject 1 mL under the skin every 14 (fourteen) days., Disp: 6 mL, Rfl: 3 ezetimibe (Zetia) 10 mg tablet, Take 10 mg by mouth in the morning., Disp: , Rfl: ferrous sulfate 325 (65 Fe) MG tablet, Take 325 mg by mouth 2 times daily., Disp: , Rfl: liothyronine (Cytomel) 5 mcg tablet, Take by mouth in the morning., Disp: , Rfl: meclizine (Antivert) 25 mg tablet, Take 50 mg by mouth if needed for dizziness., Disp: , Rfl: memantine (Namenda XR) 28 mg capsule,sprinkle,ER 24hr, Take 28 mg by mouth in the morning., Disp: ,Rfl: metoprolol tartrate (Lopressor) 50 mg tablet, Take 25 mg by mouth two times daily., Disp: , Rfl: nitroglycerin (Nitrostat) 0.4 mg SL tablet, Place 0.4 mg under the tongue every 5 (five) minutes ifneeded for chest pain., Disp: , Rfl: rOPINIRole (Requip) 0.5 mg tablet, Take 0.5 mg by mouth at bedtime., Disp: , Rfl: tiotropium (Spiriva with HandiHaler) 18 mcg inhalation capsule, if needed., Disp: , Rfl: isosorbide mononitrate ER (Imdur) 30 mg 24 hr tablet, Take 30 mg by mouth in the morning. Do not crush or chew. (Patient not taking: Reported on 12/22/2024), Disp: , Rfl: Objective Visit Vitals BP 159/67 (BP Location: Left arm, Patient Position: Sitting) Pulse 50 Ht 1.6 m (5' 3 ) Wt 77.6 kg (171 lb) SpO2 95% BMI 30.29 kg/m?? OB Status Postmenopausal Smoking Status Former BSA 1.86 m?? Physical exam: GENERAL: alert and oriented x3, well developed, in no acute distress. HEAD: atraumatic, normocephalic. EYES: LEANNE, EOMI. NECK: trachea midline, no JVD present, no carotid bruits present. CARDIAC: S1, S2 present. RRR. Soft and short systolic ejection murmur 1-2/6 at the aortic area RESPIRATORY: no increased effort of breathing, very fine crackles on the left base ABDOMEN: soft, nondistended, tender over all the left side of the abdomen and the lower mid abdomenhowever no guarding or rebound, bowel sounds are normal, no organomegaly, midline surgical scar. EXTREMITIES: +2 edema of the both lower extremities with diffuse bruises because she is on combination of Plavix and Eliquis. No rash/skin discoloration present. NEURO: Grossly normal PSYCH: appropriate mood, affect, and judgement. Recent Labs 12/17/2024 White blood count 10.6, hemoglobin 12.7, hematocrit 39.8, platelets 207 INR 1.07, PTT 28 Sodium 147, potassium 3.9, BUN 26, creatinine 1.29, GFR 40, glucose 125, calcium 9.4 Total bilirubin 0.3, AST 18, ALT 28, alk phos 143, total protein 6.5, albumin 3.5 proBNP 11,284, normal less than 1800 High-sensitivity troponin 12.1 08/16/2024 BUN 45, creatinine 1.48, GFR 34 BNP 6680 TSH 4.418, T4 10.3 normal, free T3 1.7 low Lab Results Component Value Date GLUCOSE 81 08/27/2024 CALCIUM 8.6 08/27/2024 NA 139 08/27/2024 K 4.5 08/27/2024 CO2 26 08/27/2024 CL 107 08/27/2024 BUN 26 (H) 08/27/2024 CREATININE 1.28 (H) 08/27/2024 Lab Results Component Value Date WBC 7.20 08/27/2024 HGB 12.1 08/27/2024 HCT 40.9 08/27/2024 MCV 100.2 (H) 08/27/2024 PLT 168 08/27/2024 Lab Results Component Value Date CHOL 217 (H) 07/22/2024 CHOL 148 02/02/2024 CHOL 164 12/05/2023 Lab Results Component Value Date HDL 45 07/22/2024 HDL 45 02/02/2024 HDL 32 12/05/2023 Lab Results Component Value Date LDLCALC 138 07/22/2024 LDLCALC 83 02/02/2024 LDLCALC 112 12/05/2023 Lab Results Component Value Date TRIG 170 (H) 07/22/2024 TRIG 100 02/02/2024 TRIG 101 12/05/2023 No components found for: CHOLHDL Lab Results Component Value Date ALT 10 07/22/2024 AST 14 07/22/2024 ALKPHOS 96 02/03/2024 BILITOT 0.8 02/03/2024 Lab Results Component Value Date TSH 5.42 02/02/2024 Imaging and other tests EKG 12/17/2024 sinus bradycardia, heart rate 51 bpm, nonspecific ST changes EK02/03/2024 Sinus rhythm with frequent and consecutive Premature ventricular complexes Prolonged QT Abnormal ECG Echo 09/08/2024 CONCLUSION: 1. Global left ventricular systolic function is normal; visually estimated ejection fraction is 55 to 60% 2. Normal right ventricular size and systolic function 3. Mild increased left ventricular wall thickness 4. No significant valvular abnormalities 5. Anterior free space; trivial effusion versus fat pad Echo: 11/26/[address] [facility] Invasive vascular procedure 02/05/2024 Procedures MESENTERIC ANGIOGRAM 69512 - [place] OFFICE/OUTPT VISIT,PROCEDURE ONLY BALLOON EXBANDABLE STENTING OF CELIAC AND SMA ARTERIES 68065 - [place] OFFICE/OUTPT VISIT,PROCEDURE ONLY [facility] Invasive vascular procedure 01/28/2024 Procedures PERC ACCESS AND CLOSURE OF BILAT FEMORAL ARTERY, ENDOVASCULAR AAA REPAIR Aorta angiogram REPAIR, AAA, ENDOVASCULAR, USING [id number] ENDOGRAFT Placement of enhanced fixation device, aptus Endo anchors x 6 Surgeons Primary: Sandeep Wang MD Resident - Assisting: Krunal Urbina MD Fellow: Lucero Srinivasan MD Cardiac cath: 12/05/2023 Procedure Performed: Bilateral selective coronary angiogram. Right heart catheterization. Access into the right internal jugular vein under ultrasound guidance. Access into the left radial artery under ultrasound guidance.Cardiac MRI: Hemodynamic Data: RA: 7 RV: 30/3, 7 PA: 29/12 (19) PCWP: 9 CO: 5.56 CI: 3.19 O2 Sat: PA sat: 60%, AO sat: 90% AO: 133/55 (84) Coronary angiography: This is a co-dominant circulation. Left Main: This arises from the left coronary cusp. It trifurcates into left anterior descending, ramus and circumflex vessels. This has mild disease but no obstructive lesions. Left anterior descending: This has mild disease but no obstructive lesions. Ramus intermedius: This has a 30% proximal stenosis. Circumflex: This is a co-dominant vessel. there is a 40% proximal segment stenosis with 40% stenosis at the ostium of the large obtuse marginal branch. The rest of the circumflex has mild disease. Right coronary artery: This arises from the right coronary cusp. It is a co- dominant vessel. This has mild luminal irregularities but no obstructive lesions. Impression/Findings: Stable non-obstructive coronary artery disease. Normal left filling pressures. Normal right filling pressures. No pulmonary hypertension. Normal cardiac output and cardiac index. Controlled systemic hypertension. Plan: Medical therapy for coronary artery disease. Aspirin 81 mg daily for life. Statin therapy for life. Further recommendations per inpatient Cardiology service. Moises Shore MD Neck CTA 02/04/2024 MPRESSION: No evidence of hemodynamically segment stenosis or occlusion of the carotid and vertebral arteries in the neck. Small right pleural effusion. Additional findings detailed above. CT of the chest, abdomen and pelvis 02/25/2024 Assessment/Plan Chronic diastolic heart failure, currently she is acutely decompensated. On Coreg, and metoprolol for unclear reason and that was confirmed with the pharmacy. She does not take Lasix anymore Mild nonobstructive coronary artery disease per cardiac catheterization 12/05/2023 On Eliquis, Coreg, metoprolol, Zetia, and Repatha. Clinically stable Paroxysmal A-fib diagnosed November 2023, maintaining normal sinus rhythm on amiodarone. On Eliquis for anticoagulation Nonsustained ventricular tachycardia, on amiodarone History of abdominal aortic aneurysm, status post endograft repair 01/28/2024 Dr. Yates at [facility]. No leak was noted on abdominal pelvis CT February 2024 Small saccular aneurysm involving the proximal aortic arch noted on chest CT 02/25/2024 PAD including celiac and SMA stenosis, Status post stenting 02/05/2024 Dr Whitten at [facility]. She underwent again angiogram with drug-coated coated balloon angioplasty of celiac artery, superior mesenteric artery on 08/26/2024. She is on Plavix Hypertension, blood pressure is elevated today. She is on both Coreg and metoprolol Hyperlipidemia, she is on Repatha and Zetia Type 2 diabetes mellitus Chronic kidney disease COPD Remote history of smoking, for many years and quit 17 years ago Mild dementia Obesity, BMI 30.3 kg/m??. Her weight represents 5 pounds increase in comparison to 08/27/2024 and 8 pounds increase in comparison to last visit in May 2024 Unsteady gait and falls Chronic vertigo caused recent fall Plan: Continue current medications including Eliquis, Plavix, Coreg, Zetia, Repatha, and amiodarone Discontinue metoprolol I will start her on Lasix 20 mg daily. I asked her to follow a low-salt diet and to weigh herself daily and write it down I asked her to check her blood pressure twice daily and write it down Will get BMP in 1 week, and the same time I will get BNP and lipids and AST ALT and TSH following up on renal function, CHF, and amiodarone treatment Check pulmonary function test/DLCO being on amiodarone Continue to follow-up with the vascular surgery regarding her aortic aneurysms and celiac stent Follow-up with me in 1 month Bhavesh Fulton MD,FACC documented in this encounter Plan of Treatment DateTypeDepartmentCare Team (Latest Contact Info)Dwodhfotxkj65/15/2025 1:20 PM ESTOffice Visit [facility] [address] [place] [address] Bhavesh Fulton MD [address] [place] [address] NameTypePriorityAssociated DiagnosesOrder ScheduleBasic metabolic panelLab Routine Chronic diastolic heart failure (CMS/HCC) Expected: 12/29/2024 (Approximate), Expires: 12/22/2025Lipid panelLabRoutine Pure hypercholesterolemia Expected: 12/22/2024 (Approximate), Expires: 12/22/2025LTLabRoutine Pure hypercholesterolemia Expected: 12/22/2024 (Approximate), Expires: 12/22/2025STLabRoutine Pure hypercholesterolemia Expected: 12/22/2024 (Approximate), Expires: 12/22/2025TSHLabRoutine Paroxysmal atrial fibrillation (CMS/HCC) Expected: 12/22/2024 (Approximate), Expires: 12/22/2025-type natriuretic peptideLabRoutine Chronic diastolic heart failure (CMS/HCC) Expected: 12/22/2024 (Approximate), Expires: 12/22/2025documented as of this encounter Visit Diagnoses Diagnosis Chronic diastolic heart failure (CMS/HCC)- Primary Chronic diastolic heart failure Coronary artery disease involving craig coronary artery of craig heart without angina pectoris Paroxysmal atrial fibrillation (CMS/HCC) Atrial fibrillation V-tach (CMS/HCC) Paroxysmal ventricular tachycardia Abdominal aortic aneurysm (AAA) without rupture, unspecified part Mesenteric artery stenosis Stricture of artery Benign hypertensive heart disease without congestive heart failure Benign hypertensive heart disease without heart failure Pure hypercholesterolemia Type 2 diabetes mellitus without complication, without long-term current use of insulin (CMS/HCC) documented in this encounter Care Teams Team MemberStanleyhipSpecialtyStart DateEnd Date Velasquez Langley MD [address] [facility] [address] [place] [id number] PCP - Lkvftug18/8/24documented as of this encounter
--- OUTSIDE RECORDS SUMMARY | 2024-12-22 13:00 | XMS_ITS | Encounter Summary ---
Author Organization [facility] Address [address] [place] [address] Care Team Providers Care Hog Scraper Name Role Phone Velasquez Langley MD Primary Care Provider [phone] Reason for Visit * ReasonCommentsFollow-upPatient is here today for a 6 month follow up with labs and PFT. Patient was recently in the ER fora fallNSVTAtrial Fibrillation Aneurysm of infrarenal abdominal aortaHypertensionCoronary Artery Disease Congestive Heart FailurePost-op Aneurysm RepairAbdominal aortic aneurysm DizzinessDizziness/lightheaded which caused her to fallFatigueVery fatigued Shortness of BreathSOB/ZAVALA has increasedEdemaBilateral leg swelling Encounter Details DateTypeDepartmentCare Team (Latest Contact Info)Eurlcmmxvwl92/29/2025 2:00 PM EDTOffice Visit [facility] at [facility] [address] [place] [address] Bhavesh Fulton MD [address] [place] [address] Chronic diastolic heart failure (CMS/HCC) (Primary Dx); Coronary artery disease involving pon[place] coronary artery of pon[place] heart without angina pectoris; Paroxysmal atrial fibrillation (CMS/HCC); V-tach (CMS/HCC); Abdominal aortic aneurysm (AAA) without rupture, unspecified part; Mesenteric artery stenosis; Benign hypertensive heart disease without congestive heart failure; Pure hypercholesterolemia; Type 2 diabetes mellitus without complication, without long-term current use of insulin (CMS/HCC) Social History Tobacco UseTypesPacks/DayYears UsedDateSmoking Tobacco: FormerCigarettes Smokeless Tobacco: NeverAlcohol UseStandard Drinks/WeekCommentsNever0 (1 standard drink = 0.6 oz pure alcohol)[facility] UtilitiesAnswerDate RecordedIn the past 12 months [...] times a week01/27/2024How often do you attend sikh or oriental orthodox services?Never01/27/2024o you belong to any clubs or organizations such as sikh groups, unions, fraternal or athletic groups, or school groups?No01/27/2024How often do you attend meetings of the clubs or organizations you belong to?Never01/27/2024re you , , , , never , or living with a partner?Blnctwb7201/27/2024 AUDIT-CAnswerDate RecordedQ1: How often do you have [...] at all 08/26/2024PHQ-2AnswerDate RecordedPatient Health Questionnaire-2 Score0 05/11/2024[facility] [place] [facility] - Occupational Stress QuestionnaireAnswerDate RecordedDo you feel stress - tense, restless, nervous, or anxious, or unable to sleep at night because yourmind is troubled all the time - these days?To some mixkav7901/27/2024UT Safety & EnvironmentAnswerDate RecordedFear of Current or [...] true08/26/2024CommentsNoSex and Gender InformationValueDate RecordedSex Assigned at QswpdVvokpb41/03/2024 11:08 AM EST Legal IeuGodbch66/29/2022 11:01 PM EDTGender ZwafjlsqWdqosn61/03/2024 11:08 AM ESTSexual OrientationHeterosexual or Gyedwaur39/03/2024 11:08 AM ESTdocumented as of this encounter Last Filed Vital Signs Vital SignReadingTime TakenCommentsBlood Vagwcyqq506/6712/22/2024 2:12 PM EDT Ufvza444512/22/2024 2:12 PM EDTTemperature--Respiratory Rate--Oxygen Qhardqgwzf13% 12/22/2024 2:12 PM EDTInhaled Oxygen Concentration--Pcggna23.6 kg (171 lb) 12/22/2024 2:12 PM TRNFfbruz434 cm (5' 3 )12/22/2024 2:12 PM EDTBody Mass Index 30.291 2:12 PM EDTdocumented in this encounter Functional Status * BPAnswerDate of GxsmxpcdqaNqoqkc380/6712/22/2024 2:12 PM EDGuerline Ortiz MA * PulseAnswerDate of WgkjebioseEliwkn1345/29/2025 2:12 PM EDGuerline Ortiz MA * Patient PositionAnswerDate of ZsairujglcCqqwdxUroqpxv21/29/2025 2:12 PM EDT Guerline Carlos MA * BPAnswerDate of NuegrpkgbpCmglsz966/6712/22/2024 2:12 PM EDGuerline Ortiz MA * PulseAnswerDate of JrtbawbnowTmmqds3441/29/2025 2:12 PM EDGuerline Ortiz MA * VrR2DbgpmeFrth of OjkoyibnvcCsorwd2118/29/2025 2:12 PM EDGuerline Ortiz MA * BP LocationAnswerDate of AssessmentAuthorLeft arm12/22/2024 2:12 PM EDT Guerline Carlos MA * Patient PositionAnswerDate of DxihbuomttWhwmxoMngecjb68/29/2025 2:12 PM EDT Guerline Carlos MA documented as of this encounter Progress Notes * Bhavesh Fulton MD - 12/22/2024 2:00 PM EDT Images from the original note were not included. [place] [facility] Subjective Shayy Johnson is a 79 y.o. year old female patient being seen for follow-up visit on chronic diastolic heart failure, nonobstructive coronary artery disease, PAD, nonsustained ventricular tachycardia, hypertension, and hyperlipidemia Patient Active Problem List Diagnosis NSVT (nonsustained ventricular tachycardia) ([facility]) Dyspnea on exertion Osteoarthritis Diabetes mellitus [...] Urge incontinence of urine COPD without exacerbation ([facility]/HCC) Atrial fibrillation ([facility]/HCC) Acute respiratory failure with hypoxia ([facility]) Benign hypertensive heart disease without congestive heart failure Coronary artery disease involving ponca tribe of [place] coronary artery of ponca tribe [place] heart without angina pectoris AAA (abdominal aortic aneurysm) without rupture Chronic diastolic heart failure ([facility]) Mesenteric artery stenosis Gallbladder colic HPI [...] Itching Promethazine Unknown Other Reaction(s): Unknown Reaction Yugucjl-Ork-Oep Reductase Inhibitors Unknown Sulfa (Sulfonamide Antibiotics) Itching [...] effusion versus fat pad Echo: 11/26/2023 at [facility] Invasive vascular procedure 02/05/2024 Procedures MESENTERIC ANGIOGRAM 41623 - [place] OFFICE/OUTPT VISIT,PROCEDURE ONLY BALLOON EXBANDABLE STENTING OF CELIAC AND SMA ARTERIES 31680 - [place] OFFICE/OUTPT VISIT,PROCEDURE ONLY Munier Nazzal Invasive vascular procedure 01/28/2024 Procedures PERC ACCESS AND CLOSURE OF BILAT FEMORAL ARTERY, ENDOVASCULAR AAA REPAIR Aorta angiogram REPAIR, AAA, ENDOVASCULAR, USING ISUAB-XF-[id number] ENDOGRAFT Placement of enhanced fixation device, aptus [...] post endograft repair 01/28/2024 Dr. Yates at [facility]. No leak was noted on abdominal pelvis CT February 2024 Small saccular aneurysm involving the proximal aortic arch noted on chest CT 02/25/2024 PAD including celiac and SMA stenosis, Status post stenting 02/05/2024 Dr Whitten at [facility]. She underwent again angiogram with drug-coated coated [...] Plan of Treatment DateTypeDepartmentCare Team (Latest Contact Info)Qpohoxunwwt82/15/2025 1:20 PM ESTOffice Visit [facility] at [facility] [address] [place] [address] Bhavesh Fulton MD [address] MS[address] [place] [address] NameTypePriorityAssociated DiagnosesOrder ScheduleBasic metabolic panelLab Routine Chronic [...] diastolic heart failure Coronary artery disease involving ponca tribe [place] coronary artery of pon[place] heart without angina pectoris Paroxysmal atrial fibrillation [...] DateEnd Date Velasquez Langley MD [address] [facility] [address] [place] [id number] PCP - Kdlqltr80/8/24documented as of this encounter
--- OUTSIDE RECORDS SUMMARY | 2024-12-22 13:00 | XMS_ITS | Encounter Summary ---
Author Organization [facility] Address [address] [place] [address] Care Team Providers Care Canvas Worker Name Role Phone Velasquez Langley MD Primary Care Provider [phone] Reason for Visit * ReasonCommentsFollow-upPatient is here today for a 6 month follow up with labs and PFT. Patient was recently in the ER fora fallNSVTAtrial Fibrillation Aneurysm of infrarenal abdominal aortaHypertensionCoronary Artery Disease Congestive Heart FailurePost-op Aneurysm RepairAbdominal aortic aneurysm DizzinessDizziness/lightheaded which caused her to fallFatigueVery fatigued Shortness of BreathSOB/ZAVALA has increasedEdemaBilateral leg swelling Encounter Details DateTypeDepartmentCare Team (Latest Contact Info)Tmscdhxrixz95/29/2025 2:00 PM EDTOffice Visit [facility] at [facility] [address] [place] [address] Bhavesh Fulton MD [address] MS:[address] [place] [address] Chronic diastolic heart failure (CMS/HCC) (Primary Dx); Coronary artery disease involving navajo coronary artery of navajo heart without angina pectoris; Paroxysmal atrial fibrillation (CMS/HCC); V-tach (CMS/HCC); Abdominal aortic aneurysm (AAA) without rupture, unspecified part; Mesenteric artery stenosis; Benign hypertensive heart disease without congestive heart failure; Pure hypercholesterolemia; Type 2 diabetes mellitus without complication, without long-term current use of insulin (CMS/HCC) Social History Tobacco UseTypesPacks/DayYears UsedDateSmoking Tobacco: FormerCigarettes Smokeless Tobacco: NeverAlcohol UseStandard Drinks/WeekCommentsNever0 (1 standard drink = 0.6 oz pure alcohol)[facility] UtilitiesAnswerDate RecordedIn the past 12 months has [...] times a week01/27/2024How often do you attend worship or yazidi services?Never01/27/2024o you belong to any clubs or organizations such as worship groups, unions, fraternal or athletic groups, or school groups?No01/27/2024How often do you attend meetings of the clubs or organizations you belong to?Never01/27/2024re you , , , , never , or living with a partner?Bymgyhe5001/27/2024 AUDIT-CAnswerDate RecordedQ1: How often do you have [...] at all 08/26/2024PHQ-2AnswerDate RecordedPatient Health Questionnaire-2 Score0 05/11/2024[facility] [place] of Occupational Health - Occupational Stress QuestionnaireAnswerDate RecordedDo you feel stress - tense, restless, nervous, or anxious, or unable to sleep at night because yourmind is troubled all the time - these days?To some okfabi1601/27/2024UT Safety & EnvironmentAnswerDate RecordedFear of Current or [...] or living in a nursing home (including now)?No08/26/2024 Hunger Vital SignAnswerDate RecordedWithin the past 12 months, you worried that your food would run out before you got the money to buymore.Never true08/26/2024 Within the past 12 months, the food you bought just didn't last and you didn't have money to get more.Never true08/26/2024CommentsNoSex and Gender InformationValueDate RecordedSex Assigned at EfgctTqnnhu47/03/2024 11:08 AM EST Legal KpqCszcen83/29/2022 11:01 PM EDTGender NzybqwngZhmsyv99/03/2024 11:08 AM ESTSexual OrientationHeterosexual or Jlfoddvi45/03/2024 11:08 AM ESTdocumented as of this encounter Last Filed Vital Signs Vital SignReadingTime TakenCommentsBlood Ouyrpyja208/6712/22/2024 2:12 PM EDT Scjpf703312/22/2024 2:12 PM EDTTemperature--Respiratory Rate--Oxygen Qudvvpjemz83% 12/22/2024 2:12 PM EDTInhaled Oxygen Concentration--Mfklde18.6 kg (171 lb) 12/22/2024 2:12 PM AIRVmxlrq573 cm (5' 3 )12/22/2024 2:12 PM EDTBody Mass Index 30.291 2:12 PM EDTdocumented in this encounter Functional Status * BPAnswerDate of VhfwdlikomSvaftw392/6712/22/2024 2:12 PM EDGuerline Ortiz MA * PulseAnswerDate of ArznlrgdxtEahdlx6948/29/2025 2:12 PM EDGuerline Ortiz MA * Patient PositionAnswerDate of CpfsbrnldhUgjsssEzgvtlc36/29/2025 2:12 PM EDT Guerline Carlos MA * BPAnswerDate of IkcfqmopmiXsssgt697/6712/22/2024 2:12 PM EDGuerline Ortiz MA * PulseAnswerDate of KotndxoyevWmmazg2841/29/2025 2:12 PM EDGuerline Ortiz MA * LeB6KestkwLltx of QwrvtwpvbiKthvua7417/29/2025 2:12 PM EDGuerline Ortiz MA * BP LocationAnswerDate of AssessmentAuthorLeft arm12/22/2024 2:12 PM EDT Guerline Carlos MA * Patient PositionAnswerDate of MufmeooqwzGlwtldRnlespk63/29/2025 2:12 PM EDT Guerline aCrlos MA documented as of this encounter Progress Notes * Bhavesh Fulton MD - 12/22/2024 2:00 PM EDT Images from the original note were not included. [place] Cardiology [facility] Subjective Shayy Johnson is a 79 y.o. year old female patient being seen for follow-up visit on chronic diastolic heart failure, nonobstructive coronary artery disease, PAD, nonsustained ventricular tachycardia, hypertension, and hyperlipidemia Patient Active Problem List Diagnosis NSVT (nonsustained ventricular tachycardia) ([facility]) Dyspnea on exertion Osteoarthritis Diabetes mellitus (CMS/HCC) [...] Urge incontinence of urine COPD without exacerbation ([facility]/HCC) Atrial fibrillation ([facility]/HCC) Acute respiratory failure with hypoxia ([facility]) Benign hypertensive heart disease without congestive heart failure Coronary artery disease involving navajo coronary artery of navajo heart without angina pectoris AAA (abdominal aortic aneurysm) without rupture Chronic diastolic heart failure ([facility]) Mesenteric artery stenosis Gallbladder colic HPI 12/22/2024 [...] Itching Promethazine Unknown Other Reaction(s): Unknown Reaction Lfpwkpb-Ici-Hve Reductase Inhibitors Unknown Sulfa (Sulfonamide Antibiotics) Itching [...] effusion versus fat pad Echo: 11/26/2023 at [facility] Invasive vascular procedure 02/05/2024 Procedures MESENTERIC ANGIOGRAM 18050 - [place] OFFICE/OUTPT VISIT,PROCEDURE ONLY BALLOON EXBANDABLE STENTING OF CELIAC AND SMA ARTERIES 62862 - [place] OFFICE/OUTPT VISIT,PROCEDURE ONLY Munier Nazzal Invasive vascular procedure 01/28/2024 Procedures PERC ACCESS AND CLOSURE OF BILAT FEMORAL ARTERY, ENDOVASCULAR AAA REPAIR Aorta angiogram REPAIR, AAA, ENDOVASCULAR, USING [id number]-YH-[id number] ENDOGRAFT Placement of enhanced fixation device, aptus [...] post endograft repair 01/28/2024 Dr. Yates at [facility]. No leak was noted on abdominal pelvis CT February 2024 Small saccular aneurysm involving the proximal aortic arch noted on chest CT 02/25/2024 PAD including celiac and SMA stenosis, Status post stenting 02/05/2024 Dr Whitten at [facility]. She underwent again angiogram with drug-coated [...] Plan of Treatment DateTypeDepartmentCare Team (Latest Contact Info)Pgfkuewmpmw37/08/2025 2:20 PM ESTOffice Visit [facility] at [facility] [address] [place] [address] Bhavesh Fulton MD [address] [place] [address] NameTypePriorityAssociated DiagnosesOrder ScheduleBasic metabolic panelLab Routine Chronic [...] diastolic heart failure Coronary artery disease involving navajo coronary artery of navajo heart without angina pectoris Paroxysmal atrial fibrillation [...] Velasquez Langley MD [address] [facility] [address] [place] [id number] PCP - Lengmym34/8/24documented as of this encounter
--- OUTSIDE RECORDS SUMMARY | 2024-12-22 13:00 | XMS_ITS | Encounter Summary ---
Author Organization [facility] Address [address] [place] [address] Care Team Providers Care Management Aide Name Role Phone Velasquez Langley MD Primary Care Provider [phone] Reason for Visit * ReasonCommentsFollow-upPatient is here today for a 6 month follow up with labs and PFT. Patient was recently in the ER fora fallNSVTAtrial Fibrillation Aneurysm of infrarenal abdominal aortaHypertensionCoronary Artery Disease Congestive Heart FailurePost-op Aneurysm RepairAbdominal aortic aneurysm DizzinessDizziness/lightheaded which caused her to fallFatigueVery fatigued Shortness of BreathSOB/ZAVALA has increasedEdemaBilateral leg swelling Encounter Details DateTypeDepartmentCare Team (Latest Contact Info)Zkjhmfuiwxr63/29/2025 2:00 PM EDTOffice Visit [facility] at [facility] [address] [place] [address] Bhavesh Fulton MD [address] [place] [address] Chronic diastolic heart failure (CMS/HCC) (Primary Dx); Coronary artery disease involving resighini coronary artery of resighini heart without angina pectoris; Paroxysmal atrial fibrillation (CMS/HCC); V-tach (CMS/HCC); Abdominal aortic aneurysm (AAA) without rupture, unspecified part; Mesenteric artery stenosis; Benign hypertensive heart disease without congestive heart failure; Pure hypercholesterolemia; Type 2 diabetes mellitus without complication, without long-term current use of insulin (CMS/HCC) Social History Tobacco UseTypesPacks/DayYears UsedDateSmoking Tobacco: FormerCigarettes Smokeless Tobacco: NeverAlcohol UseStandard Drinks/WeekCommentsNever0 (1 standard drink = 0.6 oz pure alcohol)[facility] UtilitiesAnswerDate RecordedIn the past 12 months [...] times a week01/27/2024How often do you attend restorationist or voodoo services?Never01/27/2024o you belong to any clubs or organizations such as restorationist groups, unions, fraternal or athletic groups, or school groups?No01/27/2024How often do you attend meetings of the clubs or organizations you belong to?Never01/27/2024re you , , , , never , or living with a partner?Ybtabam6501/27/2024 AUDIT-CAnswerDate RecordedQ1: How often do you have [...] at all 08/26/2024PHQ-2AnswerDate RecordedPatient Health Questionnaire-2 Score0 05/11/2024[facility] [place] of Occupational Health - Occupational Stress QuestionnaireAnswerDate RecordedDo you feel stress - tense, restless, nervous, or anxious, or unable to sleep at night because yourmind is troubled all the time - these days?To some gdhskv2501/27/2024UT Safety & EnvironmentAnswerDate RecordedFear of Current or [...] were you homeless or living in a prison (including now)?No08/26/2024 Hunger Vital SignAnswerDate RecordedWithin the past 12 months, you worried that your food would run out before you got the money to buymore.Never true08/26/2024 Within the past 12 months, the food you bought just didn't last and you didn't have money to get more.Never true08/26/2024CommentsNoSex and Gender InformationValueDate RecordedSex Assigned at QerewSfbbpt95/03/2024 11:08 AM EST Legal DrkCidvqk93/29/2022 11:01 PM EDTGender EdklokdmQlejuc84/03/2024 11:08 AM ESTSexual OrientationHeterosexual or Jfowxlay65/03/2024 11:08 AM ESTdocumented as of this encounter Last Filed Vital Signs Vital SignReadingTime TakenCommentsBlood Qdrkxkro745/6712/22/2024 2:12 PM EDT Gtyto684912/22/2024 2:12 PM EDTTemperature--Respiratory Rate--Oxygen Uzziqdstvn75% 12/22/2024 2:12 PM EDTInhaled Oxygen Concentration--Prxhzv41.6 kg (171 lb) 12/22/2024 2:12 PM WEZWfryje911 cm (5' 3 )12/22/2024 2:12 PM EDTBody Mass Index 30.291 2:12 PM EDTdocumented in this encounter Functional Status * BPAnswerDate of JknikmeyrzDegmic338/6712/22/2024 2:12 PM EDGuerline Ortiz MA * PulseAnswerDate of XcccznvqifOjrkds0227/29/2025 2:12 PM EDGuerline Ortiz MA * Patient PositionAnswerDate of QpcknafupiStexadXbfpcun82/29/2025 2:12 PM EDT Guerline Carlos MA * BPAnswerDate of NokftddtpzSkhysq092/6712/22/2024 2:12 PM EDGuerline Ortiz MA * PulseAnswerDate of LnhiiroaiyHnkhwo5199/29/2025 2:12 PM EDGuerline Ortiz MA * OqE0TzwjkkBjbr of XbnlbttxfrGvkmru8741/29/2025 2:12 PM EDGuerline Ortiz MA * BP LocationAnswerDate of AssessmentAuthorLeft arm12/22/2024 2:12 PM EDT Guerline Carlos MA * Patient PositionAnswerDate of HjuayrkllvNutycoCipnatg17/29/2025 2:12 PM EDT Guerline Carlos MA documented as of this encounter Progress Notes * Bhavesh Fulton MD - 12/22/2024 2:00 PM EDT Images from the original note were not included. [place] Cardiology [facility] Subjective Shayy Johnson is a 79 y.o. year old female patient being seen for follow-up visit on chronic diastolic heart failure, nonobstructive coronary artery disease, PAD, nonsustained ventricular tachycardia, hypertension, and hyperlipidemia Patient Active Problem List Diagnosis NSVT (nonsustained ventricular tachycardia) ([facility]) Dyspnea on exertion Osteoarthritis Diabetes mellitus (CMS/HCC) [...] Urge incontinence of urine COPD without exacerbation ([facility]/HCC) Atrial fibrillation ([facility]/HCC) Acute respiratory failure with hypoxia ([facility]) Benign hypertensive heart disease without congestive heart failure Coronary artery disease involving resighini coronary artery of resighini heart without angina pectoris AAA (abdominal aortic aneurysm) without rupture Chronic diastolic heart failure ([facility]) Mesenteric artery stenosis Gallbladder colic HPI 12/22/2024 [...] Itching Promethazine Unknown Other Reaction(s): Unknown Reaction Ztjdgny-Enk-Yjq Reductase Inhibitors Unknown Sulfa (Sulfonamide Antibiotics) Itching [...] effusion versus fat pad Echo: 11/26/2023 at [facility] Invasive vascular procedure 02/05/2024 Procedures MESENTERIC ANGIOGRAM 33692 - [place] OFFICE/OUTPT VISIT,PROCEDURE ONLY BALLOON EXBANDABLE STENTING OF CELIAC AND SMA ARTERIES 37385 - [place] OFFICE/OUTPT VISIT,PROCEDURE ONLY Munier Nazzal Invasive vascular procedure 01/28/2024 Procedures PERC ACCESS AND CLOSURE OF BILAT FEMORAL ARTERY, ENDOVASCULAR AAA REPAIR Aorta angiogram REPAIR, AAA, ENDOVASCULAR, USING [id number]-IB-[id number] ENDOGRAFT Placement of enhanced fixation device, aptus [...] post endograft repair 01/28/2024 Dr. Yates at [facility]. No leak was noted on abdominal pelvis CT February 2024 Small saccular aneurysm involving the proximal aortic arch noted on chest CT 02/25/2024 PAD including celiac and SMA stenosis, Status post stenting 02/05/2024 Dr Whitten at [facility]. She underwent again angiogram [...] Plan of Treatment DateTypeDepartmentCare Team (Latest Contact Info)Aancmyziaep27/08/2025 2:20 PM ESTOffice Visit [facility] [address] [place] [address] Bhavesh Fulton MD [address] [place] [address] NameTypePriorityAssociated DiagnosesOrder ScheduleBasic metabolic panelLab Routine Chronic [...] diastolic heart failure Coronary artery disease involving resighini coronary artery of resighini heart without angina pectoris Paroxysmal atrial fibrillation [...] DateEnd Date Velasquez Langley MD [address] [facility] [address] [place] [id number] PCP - Smbwsgq98/8/24documented as of this encounter
[2024-12-29] VITALS (14 sets, daily range): BP systolic 158–208; BP diastolic 58–82; PULSE 52–60; TEMP 36.8; O2SAT 95–98; BMI 30.1
--- NOTE | 2024-12-29 12:04 | ECG_ITS ---
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 Measurements Intervals Alsey Rate: 53 P: 259 WI: 134 QRS: -12 QRSD: 84 T: 43 QT: 466 QTc: 450 Interpretive Statements ECTOPIC ATRIAL RHYTHM 9140 abnormal rhythm ECG Compared to ECG 12/17/2024 11:03:35 Ectopic atrial rhythm now present Electronically Signed On 12-30-2024 7:18:29 EST by SCHUYLER ROBLERO M.D.
--- NOTE | 2024-12-29 12:04 | ED.DIZZY1 ---
HPI - Dizziness General Chief Complaint: Syncope Stated Complaint: syncope Time Seen by Provider: 12/29/24 12:03 Source: patient Mode of arrival: Wheelchair Limitations: no limitations History of Present Illness HPI Narrative: The patient is a 79 years old female presenting to the ER after she was doing a pulmonary function test and the other side of the hospital [facility] . Sending to us after she had an episode of syncope in which the patient she is not sure if she passed out she thinks maybe she was going to pass out, the patient started seeing some black spots denies any headache or any chest pain or any blurry vision, but just feeling weak all over Patient has been having episode of shortness of breath , and she had a full workup including a cardiac cath Related Data Home Medications ?Medication ?Instructions ?Recorded ?Confirmed albuterol sulfate 90 mcg/actuation 2 puff inhalation Q4H PRN 11/23/23 12/29/24 aerosol inhaler shortness of breath or wheezing amiodarone 200 mg tablet 200 mg PO DAILY 12/02/23 12/29/24 ezetimibe 10 mg tablet 10 mg PO DAILY 12/02/23 12/29/24 ropinirole 0.5 mg tablet 0.5 mg PO .QHS 12/02/23 12/29/24 tiotropium bromide 2.5 2 puff inhalation DAILY PRN 12/02/23 12/29/24 mcg/actuation mist for inhalation shortness of breath (Spiriva Respimat) metoprolol tartrate 50 mg tablet 50 mg PO BID 12/03/23 12/29/24 triamcinolone acetonide 0.1 % 1 applic topical BID PRN itching 02/01/24 12/29/24 topical cream carvedilol 12.5 mg tablet 12.5 mg PO Q12H 12/17/24 12/29/24 clopidogrel 75 mg tablet 75 mg PO DAILY 12/17/24 12/29/24 evolocumab 140 mg/mL subcutaneous 140 mg subcut DAILY 12/17/24 12/29/24 pen injector (Fawad Mishraick) ferrous sulfate 325 mg (65 mg 325 mg PO BID 12/17/24 12/29/24 iron) tablet (Feosol) liothyronine 5 mcg tablet 10 mcg PO DAILY 12/17/24 12/29/24 meclizine 25 mg tablet 25 mg PO BID PRN dizziness 12/17/24 12/29/24 memantine 21 mg capsule 21 mg PO Q24H 12/17/24 12/29/24 sprinkle,extended release 24hr tralokinumab-ldrm 300 mg/2 mL 300 mg subcut Q28D 12/17/24 12/29/24 subcutaneous auto-injector (Adbry) furosemide 20 mg tablet 20 mg PO DAILY 12/29/24 12/29/24 Previous Rx's ?Medication ?Instructions ?Recorded apixaban 5 mg tablet (Eliquis) 5 mg PO BID #60 tabs 11/28/23 nitroglycerin 0.4 mg sublingual 0.4 mg sublingual Q5M PRN Chest 12/03/23 tablet Pain #20 tabs Allergies Allergy/AdvReac Type Severity Reaction Status Date / Time meperidine (From Demerol) Allergy Severe Anaphylaxis Verified 12/17/24 10:51 aspirin Allergy excessive Verified 12/17/24 11:32 bleeding atorvastatin Allergy Unknown Verified 12/17/24 11:32 cefdinir Allergy Unknown Verified 12/17/24 11:32 ciprofloxacin (From Cipro) Allergy Unknown Verified 12/17/24 11:32 moxifloxacin (From Avelox) Allergy Unknown Verified 12/17/24 11:32 nalbuphine (From Nubain) Allergy Unknown Verified 12/17/24 11:32 promethazine (From Phenergan) Allergy Unknown Verified 12/17/24 11:32 Sulfa (Sulfonamide Allergy Unknown Verified 12/17/24 11:32 Antibiotics) Review of Systems ROS Status of ROS 10 or more systems reviewed and unremarkable except as noted in history and below [facility] Medical History (Updated 12/29/24 @ 17:12 by Jaclyn Kimble MD) Vertigo ?R42 - Dizziness and giddiness (ICD-10) Severe protein-calorie malnutrition ?E43 - Unspecified severe protein-calorie malnutrition (ICD-10) Systolic heart failure ?I50.20 - Unspecified systolic (congestive) heart failure (ICD-10) Hypertension ?I10 - Essential (primary) hypertension (ICD-10) Non-sustained ventricular tachycardia ?I47.29 - Other ventricular tachycardia (ICD-10) Chest pain ?R07.9 - Chest pain, unspecified (ICD-10) Essential (primary) hypertension ?I10 - Essential (primary) hypertension (ICD-10) ZAVALA (dyspnea on exertion) ?R06.09 - Other forms of dyspnea (ICD-10) Elevated troponin level not due myocardial infarction ?R79.89 - Other specified abnormal findings of blood chemistry (ICD-10) Atrial fibrillation ?I48.91 - Unspecified atrial fibrillation (ICD-10) Dehydration ?E86.0 - Dehydration (ICD-10) Upper respiratory infection ?J06.9 - Acute upper respiratory infection, unspecified (ICD-10) COPD (chronic obstructive pulmonary disease) ?J44.9 - Chronic obstructive pulmonary disease, unspecified (ICD-10) History of uterine cancer ?Z85.42 - Personal history of malignant neoplasm of other parts of uterus (ICD-10) Edema ?R60.9 - Edema, unspecified (ICD-10) Diabetes ?E11.9 - Type 2 diabetes mellitus without complications (ICD-10) HTN (hypertension) ?I10 - Essential (primary) hypertension (ICD-10) Surgical History (Updated 02/01/24 @ 21:12 by Argentina Keenan) S/P abdominal aortic aneurysm repair ?Z98.890 - Other specified postprocedural states (ICD-10) ?Z86.79 - Personal history of other diseases of the circulatory system (ICD-10) History of abdominal aortic aneurysm repair ?Z98.890 - Other specified postprocedural states (ICD-10) H/O: hysterectomy ?Z90.710 - Acquired absence of both cervix and uterus (ICD-10) Family History Father Family history of cancer Family history of COPD (chronic obstructive pulmonary disease) Mother Family history of diabetes mellitus Family history of hypertension Family history of myocardial infarction Family history of CHF (congestive heart failure) Social History Within the past year, how often did you have a drink containing alcohol: never Score interpretation: A score less than 3 is consistent with normal alcohol consumption. Smoking status: Former smoker Non-prescribed substance use: denies use Highest level of school completed/degree received: 10th grade Little interest or pleasure in doing things: not at all Feeling down, depressed, or hopeless: not at all Exam Narrative Exam Narrative: Nurses notes and vital signs reviewed and patient is not hypoxic. General: Well-appearing and in no apparent distress. Skin: Warm, dry, no pallor noted. No rash. Head: Normocephalic, atraumatic. Neck: Supple, non-tender. Ears, Nose, Mouth, and Throat:Oral mucosa is moist, no posterior oropharynx erythema, uvula is mid-line Cardiovascular: Regular Rate and Rhythm without murmur, gallop or rub. Respiratory: No accessory muscle use or respiratory distress. Lungs are clear to auscultation, no wheezing, rales or rhonchi Chest Wall: no tenderness Back: No midline thoracic or lumbar vertebral tenderness. No CVA tenderness Musculoskeletal: normal ROM, no calf or popliteal tenderness, no lower extremity edema/swelling GI: Abdomen is soft, non-distended. Normal bowel sounds. No masses appreciated. No tenderness to palpation. No rebound, guarding, or rigidity noted. Neurological: A&O x4. No cranial nerve dysfunction observed. No truncal ataxia. Moves all extremities. Sensation intact. Psychiatric: Cooperative and interactive. Normal mood and affect. Constitutional Vital Signs, click to edit/add: Last Vital Signs Temp 98.2 F 12/29/24 12:17 Pulse 59 L 12/29/24 16:31 Resp 20 12/29/24 16:31 BP 158/70 H 12/29/24 16:31 Pulse Ox 96 12/29/24 16:31 O2 Del Method Room Air 12/29/24 16:31 Course Vital Signs Vital signs: Vital Signs Pulse Rate 52 L 12/29/24 11:48 Respiratory Rate 18 12/29/24 11:48 Pulse Oximetry 96 12/29/24 11:48 Oxygen Delivery Method Room Air 12/29/24 11:48 Temperature 98.2 F 12/29/24 12:17 Pulse Rate 59 L 12/29/24 16:31 Respiratory Rate 20 12/29/24 16:31 Blood Pressure 158/70 H 12/29/24 16:31 Pulse Oximetry 96 12/29/24 16:31 Oxygen Delivery Method Room Air 12/29/24 16:31 MDM - Dizziness MDM Narrative Medical decision making narrative: The patient EKG in the ER was not showing any acute pathology it was showing heart rate of 53 sinus although read as junctional but there is obvious P wave there was no arrhythmia or any significant pathology The patient chest x-ray showed no acute pathology CBC and chemistry showing no acute pathology compared to baseline But it was noted that the patient blood pressure is above 200 on the manual as well as the mechanical machine reading It was noted that the patient blood pressure was elevated and that she was provided with hydralazine initially because she mentioned some black spot CT head showed no acute pathology I did discuss the case with Dr. Fulton who is the cosmetology instructor taking care of the patient and she did recommend that the patient need to be on more blood pressure medication mostly amlodipine if possible But it also was noted that the patient becomes hypoxemic on exertion she would dropped from 94 to 96% to 89 to 88% when she walked a few steps to the bathroom. And this is the only time that she was complaining of dizziness as well as shortness of breath The patient case was discussed with to be admitted for evaluation for home oxygen specially that the patient dropping her oxygen on ambulation, the patient did had a history of smoking cigarettes for 30 years and did quit smoking 20 years ago Right now the patient had a CT angio done as per Dr. Barron request to make sure that we rule out any PE after the D-dimer was positive and it was negative It might also need a VQ scan in case there is a chronic PE concern Lab Data Labs: Lab Results 12/29/24 12/29/24 12/29/24 Range/Units 11:52 12:11 14:12 WBC 7.4 (4.0-11.0) 10^3/uL RBC 3.60 L (4.20-5.40) 10^6/uL Hgb 10.8 L (12.0-16.0) g/dL Hct 34.7 L (36.0-48.0) % MCV 96.4 (81.0-99.0) fL MCH 30.0 (26.7-34.0) pg MCHC 31.1 (29.9-35.2) g/dL RDW 14.3 (11.0-15.0) % Plt Count 191 (150-450) 10^3/uL MPV 11.2 (9.5-13.5) fL Neut % (Auto) 75.0 (43.0-75.0) % Lymph % (Auto) 15.2 L (20.5-60.0) % [place] % (Auto) 6.5 (1.7-12.0) % Eos % (Auto) 2.3 (0.9-7.0) % Baso % (Auto) 0.3 (0.2-2.0) % Neut # (Auto) 5.6 (1.4-6.5) 10^3/uL Lymph # (Auto) 1.1 L (1.2-3.8) 10^3/uL [place] # (Auto) 0.5 (0.3-0.8) 10^3/uL Eos # (Auto) 0.2 (0.0-0.7) 10^3/uL Baso # (Auto) 0.0 (0.0-0.1) 10^3/uL Abs Immat Gran (auto) 0.05 H (0.00-0.03) 10^3/uL Imm/Tot Granulo (auto) 0.7 H (0.0-0.5) % D-Dimer 2.02 H* (<=0.59) mg/L FEU Sodium 146 H (136-145) mmol/L Potassium 3.6 (3.5-5.1) mmol/L Chloride 108 H (98-107) mmol/L Carbon Dioxide 30.7 (21.0-32.0) mmol/L Anion Gap 10.9 BUN 18.0 (7.0-18.0) mg/dL Creatinine 1.23 H (0.55-1.02) mg/dL Est GFR ( Amer) 51 L (>=60 mL/min/1.73m^2) Est GFR (Non-Af Amer) 42 L (>=60 mL/min/1.73m^2) BUN/Creatinine Ratio 14.6 Glucose 100 (74-106) mg/dL Calcium 8.6 (8.5-10.1) mg/dL Total Bilirubin 0.4 (0.2-1.0) mg/dL AST 13 L (15-37) U/L ALT 22 (14-59) U/L Alkaline Phosphatase 113 (46-116) U/L Troponin I High Sens 14.5 12.7 (4.0-51.3) pg/mL NT-Pro-B Natriuret Pep 7329.0 H* (<=1800.0) pg/mL Total Protein 5.9 L (6.4-8.2) g/dL Albumin 2.8 L (3.4-5.0) g/dL Globulin 3.1 g/dL Albumin/Globulin Ratio 0.9 Urine Color (YELLOW) Urine Clarity (CLEAR) Urine pH (5.0-9.0) Ur Specific [place] (1.005-1.025) Urine Protein (NEG/TRACE) mg/dL Urine Glucose (UA) (NEGATIVE) mg/dL Urine Ketones (NEGATIVE) mg/dL Urine Occult Blood (NEGATIVE) Urine Nitrite (NEGATIVE) Urine Bilirubin (NEGATIVE) Urine Urobilinogen (0.2-1.0) EU/dL Ur Leukocyte Esterase (NEGATIVE) Urine RBC (0-2) #/HPF Urine WBC (NONE SEEN) #/HPF Ur Squamous Epith Cells (NONE/RARE) #/LPF Ur Transition Epith Cell (NONE SEEN) #/LPF Urine Crystals (None Seen) #/HPF Urine Bacteria (NONE SEEN) #/HPF Urine Casts (NONE SEEN) #/LPF Hyaline Casts Urine Mucus (NONE SEEN) Ur Culture Indicated? POC Glucose 102 (74-106) mg/dL 12/29/24 Range/Units 15:05 WBC (4.0-11.0) 10^3/uL RBC (4.20-5.40) 10^6/uL Hgb (12.0-16.0) g/dL Hct (36.0-48.0) % MCV (81.0-99.0) fL MCH (26.7-34.0) pg MCHC (29.9-35.2) g/dL RDW (11.0-15.0) % Plt Count (150-450) 10^3/uL MPV (9.5-13.5) fL Neut % (Auto) (43.0-75.0) % Lymph % (Auto) (20.5-60.0) % [place] % (Auto) (1.7-12.0) % Eos % (Auto) (0.9-7.0) % Baso % (Auto) (0.2-2.0) % Neut # (Auto) (1.4-6.5) 10^3/uL Lymph # (Auto) (1.2-3.8) 10^3/uL [place] # (Auto) (0.3-0.8) 10^3/uL Eos # (Auto) (0.0-0.7) 10^3/uL Baso # (Auto) (0.0-0.1) 10^3/uL Abs Immat Gran (auto) (0.00-0.03) 10^3/uL Imm/Tot Granulo (auto) (0.0-0.5) % D-Dimer (<=0.59) mg/L FEU Sodium (136-145) mmol/L Potassium (3.5-5.1) mmol/L Chloride (98-107) mmol/L Carbon Dioxide (21.0-32.0) mmol/L Anion Gap BUN (7.0-18.0) mg/dL Creatinine (0.55-1.02) mg/dL Est GFR ( Amer) (>=60 mL/min/1.73m^2) Est GFR (Non-Af Amer) (>=60 mL/min/1.73m^2) BUN/Creatinine Ratio Glucose (74-106) mg/dL Calcium (8.5-10.1) mg/dL Total Bilirubin (0.2-1.0) mg/dL AST (15-37) U/L ALT (14-59) U/L Alkaline Phosphatase (46-116) U/L Troponin I High Sens (4.0-51.3) pg/mL NT-Pro-B Natriuret Pep (<=1800.0) pg/mL Total Protein (6.4-8.2) g/dL Albumin (3.4-5.0) g/dL Globulin g/dL Albumin/Globulin Ratio Urine Color Lt. yellow (YELLOW) Urine Clarity Clear (CLEAR) Urine pH 6.0 (5.0-9.0) Ur Specific [place] 1.010 (1.005-1.025) Urine Protein Negative (NEG/TRACE) mg/dL Urine Glucose (UA) Negative (NEGATIVE) mg/dL Urine Ketones Negative (NEGATIVE) mg/dL Urine Occult Blood Negative (NEGATIVE) Urine Nitrite Negative (NEGATIVE) Urine Bilirubin Negative (NEGATIVE) Urine Urobilinogen 1.0 (0.2-1.0) EU/dL Ur Leukocyte Esterase Moderate A (NEGATIVE) Urine RBC 0-2 (0-2) #/HPF Urine WBC 10-20 A (NONE SEEN) #/HPF Ur Squamous Epith Cells Few A (NONE/RARE) #/LPF Ur Transition Epith Cell Rare A (NONE SEEN) #/LPF Urine Crystals None seen (None Seen) #/HPF Urine Bacteria Small A (NONE SEEN) #/HPF Urine Casts Seen A (NONE SEEN) #/LPF Hyaline Casts Rare Urine Mucus Small A (NONE SEEN) Ur Culture Indicated? Yes-[facility] POC Glucose (74-106) mg/dL Discharge Plan Discharge Chief Complaint: Syncope Clinical Impression: Increasing shortness of breath, Hypoxemia, Hypertensive urgency Patient Disposition: Admitted As Inpatient Time of Disposition Decision: 17:12
--- NOTE | 2024-12-29 12:05 | XR_ITS ---
[address] [address] Patient Name: ZACHARY MAYNARD MRN: [id number] date: 1945 Sex: F Assigned Patient Location: ER Current Patient Location: ED.MAIN Accession/Order Number: [id number] Exam Date: 12/29/2024 12:22 Report Date: 12/29/2024 12:37 At the request of: CELIA ESTRADA MD Procedure: XR chest 1V PA CHEST: CLINICAL HISTORY: sob COMPARISON: CT chest 12/17/2024 Mildly enlarged cardiomediastinal silhouette. Lungs clear. No effusion or pneumothorax. Aortic knob calcification. XR/XR chest 1V IMPRESSION: NEGATIVE ACUTE PLEURAL-PARENCHYMAL DISEASE. Impression dictated by: Ariel Dawkins M.D. 12/29/2024 12:37 PM Dictation Location: [place] [address] Electronically authenticated by: [id number] Y Date: 12/29/2024 12:37
--- NOTE | 2024-12-29 12:18 | CT_ITS ---
The [address] [address] Patient Name: ZACHARY MAYNARD MRN: [id number] date: 1945 Sex: F Assigned Patient Location: ER Current Patient Location: ED.MAIN Accession/Order Number: [id number] Exam Date: 12/29/2024 12:25 Report Date: 12/29/2024 12:41 At the request of: CELIA ESTRADA MD Procedure: CT stroke head/brain wo con CT BRAIN WITHOUT CONTRAST: CLINICAL HISTORY: ams ,black spots COMPARISON: 12/17/2024 TECHNIQUE: Contiguous axial unenhanced images were obtained through the brain. This CT exam was performed using one or more following dose reduction techniques: Automated exposure control, adjustment of the mA and/or kV according to patient size, or use of iterative reconstruction technique. FINDINGS: There is no evidence of midline shift, intra or extra-axial fluid collection, hemorrhage or CT evidence of acute large vascular distribution stroke. Generalized involutional change. Moderate to severe chronic small vessel ischemic disease. Remote left caudate head lacunar stroke. Cataract surgery. Mild sinus mucosal thickening. The surrounding soft tissues are normal. CT/CT stroke head/brain wo con IMPRESSION: NO ACUTE INTRACRANIAL ABNORMALITY. MODERATE SEVERE CHRONIC SMALL VESSEL CHANGES. Impression dictated by: Ariel Dawkins M.D. 12/29/2024 12:41 PM Dictation Location: [place] [address] Electronically authenticated by: [id number] Y Date: 12/29/2024 12:41
[2024-12-29 12:20] LABS: Hematocrit 34.7 % (36.0-48.0); Hemoglobin 10.8 g/dL (12.0-16.0); Immature Granulocytes Abs Auto 0.05 10^3/uL (0.00-0.03); Immature Granulocytes Pct Auto 0.7 % (0.0-0.5); Lymphocytes Absolute Auto 1.1 10^3/uL (1.2-3.8); Mean Corpuscular HGB Conc 31.1 g/dL (29.9-35.2); Mean Corpuscular Hemoglobin 30.0 pg (26.7-34.0); Mean Corpuscular Volume 96.4 fL (81.0-99.0); Platelet Count 191 10^3/uL (150-450); Red Blood Count 3.60 10^6/uL (4.20-5.40); White Blood Count 7.4 10^3/uL (4.0-11.0)
--- OUTSIDE RECORDS SUMMARY | 2024-12-29 12:24 | XMS_ITS | Encounter Summary ---
Author Organization [facility] Address [address] [place] [address] Care Team Providers Care Ditch Worker Name Role Phone Velasquez Langley MD Primary Care Provider [phone] Reason for Visit * ReasonOnset DateCommentsMed Ttpama7012/27/2024 Encounter Details DateTypeDepartmentCare Team (Latest Contact Info)Youivnrhjay08/03/2025Refill [facility] [address] [place] [address] Kristie Chow MA Mesenteric artery stenosis Social History Tobacco UseTypesPacks/DayYears UsedDateSmoking Tobacco: FormerCigarettes Smokeless Tobacco: NeverAlcohol UseStandard Drinks/WeekCommentsNever0 (1 standard drink = 0.6 oz pure alcohol)[facility] UtilitiesAnswerDate RecordedIn the past 12 months has the electric, gas, oil, or water [employer] threatened to shut off services in your [...] times a week01/27/2024How often do you attend pentecostalism or lutheran services?Never01/27/2024o you belong to any clubs or organizations such as pentecostalism groups, unions, fraternal or athletic groups, or school groups?No01/27/2024How often do you attend meetings of the clubs or organizations you belong to?Never01/27/2024re you , , , , never , or living with a partner?Bepvumf6301/27/2024 AUDIT-CAnswerDate RecordedQ1: How often do you have [...] at all 08/26/2024PHQ-2AnswerDate RecordedPatient Health Questionnaire-2 Score0 05/11/2024[facility] [place] [facility] Occup[facility] - Occupational Stress QuestionnaireAnswerDate RecordedDo you feel stress - tense, restless, nervous, or anxious, or unable to sleep at night because yourmind is troubled all the time - these days?To some ckkgds9801/27/2024UT Safety & EnvironmentAnswerDate RecordedFear of Current or [...] were you homeless or living in a snf (including now)?No08/26/2024 Hunger Vital SignAnswerDate RecordedWithin the past 12 months, you worried that your food would run out before you got the money to buymore.Never true08/26/2024 Within the past 12 months, the food you bought just didn't last and you didn't have money to get more.Never true08/26/2024CommentsNoSex and Gender InformationValueDate RecordedSex Assigned at KrwekDeynuk17/03/2024 11:08 AM EST Legal ZmhTzjukd18/29/2022 11:01 PM EDTGender YjkwadsgYdstdd04/03/2024 11:08 AM ESTSexual OrientationHeterosexual or Tqogsfng59/03/2024 11:08 AM ESTdocumented as of this encounter Plan of Treatment DateTypeDepartmentCare Team (Latest Contact Info)Vvstglrefch48/08/2025 2:20 PM ESTOffice Visit [facility] [address] [place] [address] Bhavesh Fulton MD [address] [place] [address] MS:[address] [place] [address] documented as of this encounter Visit Diagnoses Diagnosis Mesenteric artery stenosis Stricture of artery documented in this encounter Care Teams Team MemberRelationshipSpecialtyStart DateEnd Velasquez Langley MD [address] [facility] [address] [address] PCP - Khrlbbi00/8/24documented as of this encounter
--- OUTSIDE RECORDS SUMMARY | 2024-12-29 12:24 | XMS_ITS | Clinical Summary ---
Author Organization [facility] Address [address], [address] [place] [address] Care Team Providers Care Transfer Car Operator Name Role Phone Velasquez Langley MD Primary Care Provider [phone] Allergies Active AllergyReactionsCriticalityNoted DateCommentsMoxifloxacinAnaphylaxisHigh 06/27/20171623Llejzfnpwlfpp68/04/2380ZseesuklcgRhupuhibtpwMznz13/04/2018Nalbuphine 06/27/20176295Osouegtifyxe70/04/4975Qmbrohx02/04/2018Sulfa Kriqjhjijjk19/04/2018 Adhesive Tape06/27/2017 Medications MedicationSigDispense QuantityRefillsLast FilledStart DateEnd DateStatus ezetimibe (ZETIA) 10 MG tablet Take 10 mg by mouth nightlyActive aspirin 81 MG chewable tablet Take 1 tablet by mouth daily 30 tablet Active hydrALAZINE (APRESOLINE) 100 MG tablet Take 1 tablet by mouth every 8 hours 90 tablet Active lisinopril (PRINIVIL;ZESTRIL) 40 MG tablet Take 1 tablet by mouth daily 30 tablet Active spironolactone (ALDACTONE) 100 MG tablet Take 1 tablet by mouth daily 30 tablet Active amLODIPine (NORVASC) 10 MG tablet Take 1 tablet by mouth daily 30 tablet Active metoprolol tartrate (LOPRESSOR) 100 MG tablet Take 1 tablet by mouth 2 times daily 60 tablet 5010/15/2019Active Active Problems ProblemNoted DateDiagnosed DateModerate bdysngpmsgmr72/21/2020Right renal artery ajhaqfab49/19/2020Secondary nzjtpqkyyhqb51/19/1480Temkwtoskuj98/19/2020 Overview (10/13/2019): Replacement after MRI Aneurysm of infrarenal abdominal aorta10/09/20198882Lafsfqbidyx61/05/2018 Hypertensive akzoiqc4306/28/20172571Qfnkymtbsadv14/05/2018Acute intractable headache Social History Tobacco UseTypesPacks/DayYears UsedDateSmoking Tobacco: NeverSmokeless Tobacco: NeverAlcohol UseStandard Drinks/WeekCommentsNo0 (1 standard drink = 0.6 oz pure alcohol)CommentsNoSex and Gender InformationValueDate RecordedSex Assigned at BirthNot on fileLegal MesNdymwb01/04/2018 9:20 PM EDTGender Identity Not on fileSexual OrientationNot on file Last Filed Vital Signs Vital SignReadingTime TakenCommentsBlood Rcveppds399/64010/16/2019 3:45 PM EDT Pgnxf120210/16/2019 8:25 AM JGDKgzhdxwcmjc07.7 ??C (98 ??F)10/16/2019 8:25 AM EDT Respiratory Kumv987710/16/2019 8:25 AM EDTOxygen Mhdydukkgr01%10/16/2019 8:25 AM EDTInhaled Oxygen Concentration--Mycqdj00.4 kg (148 lb 9.4 oz)10/16/2019 6:15 AM HDYGdlblo850.6 cm (5' 4 )10/15/2019 3:22 PM EDTBody Mass Index25.5108 3:22 PM EDT Plan of Treatment Not on file Insurance Advance Directives * Full Code (Latest Code Status on File) Date ActivatedDate InactivatedComments10/09/2019 12:27 PM10/16/2019 8:05 PM * Full Code Date ActivatedDate InactivatedComments06/28/2017 8:51 AM06/29/2017 4:56 PM * Full Code Date ActivatedDate InactivatedComments06/28/2017 1:26 AM06/28/2017 8:50 AM Care Teams Team MemberRelationshipSpecialtyStart DateEnd Date Velasquez Langley MD [address] [place] [address] PCP - GeneralFamily Medicine06/27/17
--- OUTSIDE RECORDS SUMMARY | 2024-12-29 12:24 | XMS_ITS | Clinical Summary ---
Author Organization [facility] Address [address] [place] [address] Care Team Providers Care Coagulating Drying Supervisor Name Role Phone Unavailable Primary Care Provider Unavailabl e Social History Tobacco UseTypesPacks/DayYears UsedDateSmoking Tobacco: Never Assessed CommentsUnknownSex and Gender InformationValueDate RecordedSex Assigned at Not on fileLegal HipKprpkh53/02/2012 9:24 AM ESTGender IdentityNot on fileSexual OrientationNot on file Plan of Treatment Not on file
--- OUTSIDE RECORDS SUMMARY | 2024-12-29 12:24 | XMS_ITS | Encounter Summary ---
Author Organization [facility] Address [address] [place] [address] Care Team Providers Care Prepress Technician Name Role Phone Velasquez Langley MD Primary Care Provider [phone] Encounter Details DateTypeDepartmentCare Team (Latest Contact Info)Kmpfrgitqjt90/29/2025Orders Only [facility] [address] [place] [address] Kristie Chow MA ZAVALA (dyspnea on exertion) (Primary Dx) Social History Tobacco UseTypesPacks/DayYears UsedDateSmoking Tobacco: FormerCigarettes Smokeless Tobacco: NeverAlcohol UseStandard Drinks/WeekCommentsNever0 (1 standard drink = 0.6 oz pure alcohol)[facility] UtilitiesAnswerDate RecordedIn the past 12 months has the electric, gas, oil, or water [employer] threatened to shut off services in your home?No08/26/2024Humiliation, Afraid, Rape, and Kick questionnaireAnswerDate RecordedWithin the last year, have you been afraid of your partner or ex-partner?08/26/2024Within the last year, have you been humiliated [...] week01/27/2024How often do you attend worship or congregational services?Never01/27/2024o you belong to any clubs or organizations such as worship groups, unions, fraternal or athletic groups, or school groups?No01/27/2024How often do you attend meetings of the clubs or organizations you belong to?Never01/27/2024re you , , , , never , or living with a partner?Cysmwcv3701/27/2024 AUDIT-CAnswerDate RecordedQ1: How often do you have [...] 08/26/2024PHQ-2AnswerDate RecordedPatient Health Questionnaire-2 Score0 05/11/2024[facility] [place] of Occupational Health - Occupational Stress QuestionnaireAnswerDate RecordedDo you feel stress - tense, restless, nervous, or anxious, or unable to sleep at night because yourmind is troubled all the time - these days?To some fockje1001/27/2024UT Safety & EnvironmentAnswerDate RecordedFear of Current or [...] homeless or living in a assisted (including now)?No08/26/2024 Hunger Vital SignAnswerDate RecordedWithin the past 12 months, you worried that your food would run out before you got the money to buymore.Never true08/26/2024 Within the past 12 months, the food you bought just didn't last and you didn't have money to get more.Never true08/26/2024CommentsNoSex and Gender InformationValueDate RecordedSex Assigned at RhkjjNxqtgr47/03/2024 11:08 AM EST Legal XpoLwzeje60/29/2022 11:01 PM EDTGender NvdyojgpCzjina28/03/2024 11:08 AM ESTSexual OrientationHeterosexual or Fpmsidyt88/03/2024 11:08 AM ESTdocumented as of this encounter Functional Status * BPAnswerDate of ScwhixnqdcNvqocl480 2:12 PM Guerline Sheth MA * PulseAnswerDate of ZuwftzgagoIdoqaz2517/29/2025 2:12 PM Guerlnie Sheth MA * Patient PositionAnswerDate of CmzsnwezwyPdtgthSezlhhf31/29/2025 2:12 PM EDT Guerline Carlos MA * BPAnswerDate of ZxptjtduumQzubdc074/6712/22/2024 2:12 PM Guerline Sheth MA * PulseAnswerDate of WuazyfketkAexrkd8740/29/2025 2:12 PM Guerline Sheth MA * MkX0DzaimxSmgm of PletoqtbwkEtotpf2948/29/2025 2:12 PM Guerline Sheth MA * BP LocationAnswerDate of AssessmentAuthorLe arm12/22/2024 2:12 PM EDT Guerline Carlos MA * Patient PositionAnswerDate of WcbnhsrbsySoeuknMcvfwqv84/29/2025 2:12 PM EDT Guerline Carlos MA documented as of this encounter Plan of Treatment DateTypeDepartmentCare Team (Latest Contact Info)Kzrbzmbgaaf33/08/2025 2:20 PM ESTOffice Visit [facility] [address] [place] [phone] Bhavesh Fulton MD [address] [facility] [address] [place] [address] NameTypePriorityAssociated DiagnosesOrder SchedulePulmonary function testing Spirometry; Body Box (lung volumes, airway resistance, and SVC), DLCOPFTRoutine ZAVALA (dyspnea on exertion) Expected: 12/22/2024 (Approximate), Expires: 12/22/2025documented as of this encounter Visit Diagnoses Diagnosis ZAVALA (dyspnea on exertion)- Primary Other dyspnea and respiratory abnormality documented in this encounter Care Teams Team MemberRelationshipSpecialtyStart DateEnd Date Velasquez Langley MD [address] [facility] [address] [address] PCP - Glescxm48/8/24documented as of this encounter
--- OUTSIDE RECORDS SUMMARY | 2024-12-29 12:24 | XMS_ITS | Clinical Summary ---
Author Organization [employer] [facility] tem Address [id number] [place] [address] Care Team Providers Care Composing Room Machinist Name Role Phone Velasquez Langley MD Primary Care Provider [phone] Allergies Active AllergyReactionsCriticalityNoted PgyxMpsjaselBkpixtshreso62/22/2019 Xnbyghmxcyncf04/22/0594Qsoiiqfqre51/22/3082Svgtuunugg77/22/2019Promethazine 10/15/20184521Cxxhpqd-Lvi-Tpc Reductase Hwmxokijhc34/22/2019Sulfa (Sulfonamide Antibiotics)10/15/2018 Medications MedicationSigDispense QuantityRefillsLast FilledStart DateEnd DateStatus ezetimibe (ZETIA) 10 mg tablet Take 10 mg by mouth daily.Active irbesartan (AVAPRO) 300 mg tablet Take 300 mg by mouth nightly.Active metoprolol tartrate (LOPRESSOR) 50 mg tablet Take 100 mg by mouth 2 (two) times a day.Active Social History Tobacco UseTypesPacks/DayYears UsedDateSmoking Tobacco: FormerSmokeless Tobacco: NeverChildcareAnswerDate VfflnvwrNwkeesbsaUvaijpw84/12/2019EmploymentAnswerDate XcxamljlNbjenntgpiYlrbipm07/12/2019Purpose - LifeAnswerDate RecordedPurpose and direction in pzdyXwimsuq51/11/2021CommentsNoSex and Gender Information ValueDate RecordedSex Assigned at BirthNot on fileLegal DtkTtnmmi29/06/2015 11:42 AM EDTGender IdentityNot on fileSexual OrientationNot on file Last Filed Vital Signs Vital SignReadingTime TakenCommentsBlood Xokfetpx965/7708 10:41 PM EDT Avnnj4998 10:41 PM VVJLsvzmtqvxhs32.7 ??C (98 ??F)10/15/2018 10:41 PM EDTRespiratory Beik108310/15/2018 10:41 PM EDTOxygen Ymmdalkclc00%10/15/2018 8:09 PM EDTInhaled Oxygen Concentration--Cxcgln99.8 kg (165 lb)10/15/2018 7:26 PM EDT Shxlqr514.6 cm (5' 4 )10/15/2018 7:26 PM EDTBody Mass Index28.32010/15/2018 7:26 PM EDT Plan of Treatment Health MaintenanceDue DateLast DoneCommentsDepression Fjgjlehni10/30/1956Tobacco Enofmhdfs48/30/1956DTaP,Tdap and Td Vaccines (1 - Tdap)05/23/1962Zoster (Shingles) Vaccine (1 of 2)05/23/1993Fall Risk Dqhswqnao94/30/2009RSV ( or age 60+ yrs) (1 - 1-dose 75+ series)05/23/2018Influenza Lnyoxfn0510/25/2024 Medical Devices Not on file Insurance Care Teams Team MemberRelationshipSpecialtyStart Date Velasquez Langley MD PCP - GeneralFamily Medicine10/15/18
--- OUTSIDE RECORDS SUMMARY | 2024-12-29 12:24 | XMS_ITS | Clinical Summary ---
Author Organization [facility] Address [address] [address] Care Team Providers Care Dba Manager Name Role Phone Velasquez Langley MD Primary Care Provider Allergies Active AllergyReactionsCriticalityNoted ZvlkTwlxcvbtDniqcxiMmibcpr37/29/2025 DtuzqtscskmlKzegu15/11/2024 Had to bring me back. Had to pump my heart TydcvocaTywdsxe34/22/5322IzzgoaypntFmwovlbrweuAxha38/08/2024NalbuphineItching, Tskjrkb4006/27/2017 Other Reaction(s): Itching EgabcozsgbqpJwsiyon53/04/2018 Other Reaction(s): Unknown Reaction Iugtqfn-Kqf-Kvx Reductase SzlmsrfvmeBmrdjyv53/04/2018Sulfa (Sulfonamide Antibiotics)Itching,Pmxpqim9706/27/2017 Other Reaction(s): Itching IsymchHhncnqa64/29/2024 Medications MedicationSigDispense QuantityRefillsLast FilledStart DateEnd DateStatus albuterol [...] by mouth two times daily. 180 tablet 6Active amiodarone (Pacerone) 200 mg tablet Indications:Paroxysmal atrial fibrillation (CMS/HCC)Take 1 tablet (200 mg) by mouth in the morning. 90 tablet 5Active Adbry 300 mg/2 mL auto-injector Inject 300 mg under the skin every 14 (fourteen) days.5Active evolocumab (Repatha SureClick) 140 mg/mL pen injector Indications:Mixed hyperlipidemiaInject 1 mL under the skin every 14 (fourteen) days. 6 mL 5Active liothyronine (Cytomel) 5 mcg tablet Take by mouth in the morning.Active apixaban (Eliquis) 2.5 mg tablet Indications:V-tach (CMS/HCC)Take 2 tablets (5 mg) by mouth two times daily for 240 doses. 120 tablet 5Active carvedilol (Coreg) 12.5 mg tablet Take 12.5 mg by mouth with breakfast and with evening meal.Active furosemide (Lasix) 20 mg tablet Indications:Chronic diastolic heart failure (CMS/HCC)Take 1 tablet (20 mg) by mouth in the morning. 30 tablet ctive clopidogrel (Plavix) 75 mg tablet Indications:Mesenteric artery stenosisTake 1 tablet (75 mg) by mouth in the morning. 90 tablet ctive metoprolol tartrate (Lopressor) 50 mg tablet Take 25 mg by mouth two times daily./Discontinued clopidogrel (Plavix) 75 mg tablet Indications:Mesenteric artery stenosisTake 1 tablet (75 mg) by mouth in the morning for 120 doses. 30 tablet 307Discontinued(Reorder) Active Problems ProblemNoted DateDiagnosed DateV-tach12/22/2024Gallbladder colic08/27/2024 Chronic diastolic heart nbxujxs5802/02/2024Mesenteric artery lysosiic02/09/2024AA (abdominal aortic aneurysm) without ojhhsfz6301/27/2024enign hypertensive heart disease without congestive heart jwbhzvs6512/31/2023oronary artery disease involving nansemond indian tribe coronary artery of nansemond indian tribe heart without angina pectoris 12/31/20233193Thkcyrgpthsifa23/11/2024iabetes cacbnosc57/11/2024History of urinary tract gjrbkzkok20/11/2024ladder outlet uapekpwbxbe81/11/2024ostinfective urethral stricture in qoivvv2912/05/2023cute intractable bappkjhe76/11/2024sthma 12/05/2023ladder adalxvsuk44/11/2024hronic obstructive pulmonary disease 12/05/20236613Glxmvxe77/11/2024Female tliwgoyux10/11/2024etention of urine 12/05/2023Flank pain12/05/2023Gross cnetjryxp70/11/2024ure hypercholesterolemia 12/05/2023Other specified postprocedural pexbjp4612/05/2023ostoperative pain of vjxlkliwb17/11/2024ight hand pain12/05/2023Stress incontinence of urine 12/05/2023Urge incontinence of urine12/05/2023OPD without exacerbation 12/05/2023trial uhdltgwrzwdt49/11/2024cute respiratory failure with hypoxia 12/05/2023NSVT (nonsustained ventricular tachycardia)12/02/2023yspnea on ukojflle68/08/2024Moderate sgdxltybxicz84/21/0321Loiwofyotgj77/19/2020 Overview (12/05/2023): Replacement after MRI Aneurysm of infrarenal abdominal aorta10/09/2019 Resolved Problems ProblemNoted DateDiagnosed DateResolved DateV-tach/Unstable kjoogp32/07/20238568Iljrfchighvb16Right renal artery srsfrept66Secondary yvcoowatbzec29 Kxeycntryxcw35Hypertensive jeojhwf66 Rldsbmnkzbw13 Encounters DateTypeDepartmentCare AcgvHbcssccdzxu86/05/2025Orders Only [facility] [address] [place] [facility] [place] [address] Renetta Lainez MA Paroxysmal atrial fibrillation (CMS/HCC) (Primary Dx)12/27/2024[facility] [address] [place] [facility] [place] [address] Kristie Chow MA Mesenteric artery mhkgedsb35/29/2025 2:00 PM EDTOffice Visit [facility] [address] [place] [facility] [place] [address] Bhavesh Fulton MD Chronic diastolic heart failure (CMS/HCC) (Primary Dx); Coronary artery disease involving nansemond indian tribe coronary artery of nansemond indian tribe heart without angina pectoris; Paroxysmal atrial fibrillation (CMS/HCC); V-tach (CMS/HCC); Abdominal aortic aneurysm (AAA) without rupture, unspecified part; Mesenteric artery stenosis; Benign hypertensive heart disease without congestive heart failure; Pure hypercholesterolemia; Type 2 diabetes mellitus without complication, without long-term current use of insulin (CMS/HCC)12/22/2024Orders Only [facility] [address] [place] [facility] [place] [address] Kristie Chow MA ZAVALA (dyspnea on exertion) (Primary Dx)12/15/2024[facility] [address] [place] [phone] Ron Crooks PA-C Mesenteric artery /28/2025Telephone [facility] [address] [place] [facility] [address] Renetta Lainez MA from Last 3 Months Family History RelationNameStatusCommentsFatherDeceasedMotherDeceased Social History Tobacco UseTypesPacks/DayYears UsedDateSmoking Tobacco: FormerCigarettes [...] partner or ex-partner?No08/26/2024 Social Connection and Isolation PanelAnswerDate RecordedIn a typical week, how many times do you talk on the phone with family, friends, or neighbors?More than three times a week01/27/2024How often do you get together with friends or relatives?More than three times a week01/27/2024How often do you attend gnosticism or worship services?Never01/27/2024o you belong to any clubs or organizations such as gnosticism groups, unions, fraternal or athletic groups, or school groups?No 01/27/2024How often do you attend meetings of the clubs or organizations you belong to?Never01/27/2024re you , , , , never , or living with a partner?Hjyrehc0401/27/2024UDIT-CAnswerDate RecordedQ1: How often do you have a drink containing alcohol?Never01/27/2024Q2: How many drinks containing alcohol do you have on a typical day when you are drinking? Patient does not drink01/27/2024Q3: How often do you have six or more drinks on one occasion?Never01/27/2024Overall Financial Resource Strain (CARDIA)AnswerDate RecordedHow hard is it for you to pay for the very basics like food, housing, medical care, and heating?Not hard at all08/26/2024PHQ-2AnswerDate Recorded Patient Health Questionnaire-2 Aeszr574Fin[facility] [place] of Occupational Health - Occupational Stress QuestionnaireAnswerDate RecordedDo you feel stress - tense, restless, nervous, or anxious, or unable to sleep at night because your mind is troubled all the time - these days?To some inoszo0001/27/2024UT Safety & EnvironmentAnswerDate RecordedFear of Current or Ex-PartnerNot on file04/17/2023 Emotionally AbusedNot on file04/17/2023hysically AbusedNot on file04/17/2023 Sexually AbusedNot on file04/17/2023hysically or Sexually AbusedNot on file 04/17/2023TransportationAnswerDate RecordedIn the past 12 months, has lack of transportation kept you from medical appointments or from getting medications?No 08/26/2024In the past 12 months, has lack of transportation kept you from meetings, work, or from getting things needed for daily living?No08/26/2024 Housing Stability Vital SignAnswerDate RecordedIn the last 12 months, was there a time when you were not able to pay the mortgage or rent on time?No08/26/2024In the past 12 months, how many times have you moved where you were living?1 08/26/2024t any time in the past 12 months, were you homeless or living in a prison (including now)?No08/26/2024Hunger Vital SignAnswerDate RecordedWithin the past 12 months, you worried that your food would run out before you got the money to buymore.Never true08/26/2024Within the past 12 months, the food you bought just didn't last and you didn't have money to get more.Never true 08/26/2024CommentsNoSex and Gender InformationValueDate RecordedSex Assigned at MdkbtQahvdl18/03/2024 11:08 AM ESTLegal KtjLxhkwk21/29/2022 11:01 PM EDTGender IedxxeksBwsltr84/03/2024 11:08 AM ESTSexual OrientationHeterosexual or Nziaeqrq78/03/2024 11:08 AM EST Last Filed Vital Signs Vital SignReadingTime TakenCommentsBlood Kktbwizg392/6710 2:12 PM EDT Psqze401412/22/2024 2:12 PM IBBTrhbyukkvib70.2 ??C (98.9 ??F)08/27/2024 8:00 AM EDTRespiratory Gvdz688408/27/2024 11:00 AM EDTOxygen Nehnmsntvv74%12/22/2024 2:12 PM EDTInhaled Oxygen Concentration--Hqdhbq12.6 kg (171 lb)12/22/2024 2:12 PM EDT Xmirfq093 cm (5' 3 )12/22/2024 2:12 PM EDTBody Mass Index30.291 2:12 PM EDT Plan of Treatment DateTypeDepartmentCare Team (Latest Contact Info)Ysuoutzxeaa87/08/2025 2:20 PM ESTOffice Visit [facility] [address] [place] [address] Bhavesh Fulton MD [address] [place] [address] [address] [place] [address] Health MaintenanceDue DateLast DoneCommentsMedicare Annual Wellness (AWV) 4Diabetes: Retinopathy Ztodfxzbq44/30/1954Adult Znyopbn0205/23/1965Zoster Vaccines (1 of 2)05/23/1993Pneumococcal Vaccine: 50+ Years (2 of 2 - PCV) /Diabetes: Hemoglobin A1C/510/4COVID-19 Vaccine ( - 2024- season)510/, 05/19/2020, 04/21/2020, Additional history existsDepression Flpjeurcq71Fall Risk Screening /05/2024Influenza KggvavzEnxeypotu45/22/2025, 12/08/2023, 12/25/2022, Additional history existsHIB VaccinesAged OutNo longer eligible based on patient's age to complete this topicHPV VaccinesAged OutNo longer eligible based on patient's age to complete this topicIPV VaccinesAged OutNo longer eligible based on patient's age to complete this topicMeningococcal B VaccineAged OutNo longer eligible based on patient's age to complete this topic Meningococcal VaccineAged OutNo longer eligible based on patient's age to complete this topicRotavirus VaccinesAged OutNo longer eligible based on patient's age to complete this topic Medical Devices ImplantedTypeAreaManufacturerDevice IdentifierShelf Expiration DateModel / Serial / LotHeli-Fx Blind Eyeletter And Endoanchor Cassette Implanted:Qty: 1 on 01/28/2024 by [facility]ep [facility]/A: [id number]-85 / / [id number] IMPLANTED, 10 COME IN A BOXEndurant Stent Graft System Implanted:Qty: 1 on 01/28/2024 by [facility]raftN/A: [id number] / [id number] / Endurant Ii Stent Graft Implanted:Qty: 1 on 01/28/2024 by [facility]ep [facility]N/A: [id number] / [id number] / Description:LEFT COMMON ILIACEndurant Ii Stent Graft Implanted:Qty: 1 on 01/28/2024 by [facility]ep [facility]raftN/A: [id number] / [id number] / Description:RIGHT COMMON ILIACStent,Express2,Bili,[id number] - [id number] Implanted:Qty: 1 on 02/05/2024 by Gilberto Whitten [facility]entN/A: AbdomenBoston [id number]/05/2025 [id number] / / [id number],Expr Reid Moe,[id number] - [id number] Implanted:Qty: 1 on 02/05/2024 by Gilberto Whitten [facility]entN/A: AbdomenBOSTON SCIENTIFIC/[id number]/01/2027 [id number] / / [id number] Procedures Procedure NamePriorityDate/TimeAssociated DiagnosisCommentsHEMOGLOBIN O1TDeu-Kp 12/05/2023 3:35 AM EDT from Last 3 Months or Most Recently Relevant to Health Maintenance Results * Hemoglobin A1c (12/05/2023 3:35 AM EDT)ComponentValueRef RangeTest Method Analysis TimePerformed AtPathologist SignatureHemoglobin A1C5.34.0 - 6.0 % 12/05/2023 10:16 AM [facility] ([facility])Estimated Average Apgirge543 mg/dL12/05/2023 10:16 AM [facility] ([facility])Specimen (Source) Anatomical Location / LateralityCollection Method / VolumeCollection Time Received TimeBloodVenous blood specimen / UnknownArterial Line / Unknown 12/05/2023 3:35 AM EDT1 4:04 AM EDT Narrative Authorizing ProviderResult TypeResult StatusDaniela Van MDLAB BLOOD ORDERABLES Final ResultPerforming OrganizationAddressCity/State/ZIP CodePhone Number [facility] ([facility]) [address] [place] [address] from Last 3 Months or Most Recently Relevant to Health Maintenance Insurance Advance Directives * Full Code (Latest Code Status on File) Date ActivatedDate InactivatedComments08/26/2024 5:06 PM08/27/2024 2:13 PM * Full Code Date ActivatedDate BbqxjnoulmpDrgprhcy67/9/2024 6:08 AM02/12/2024 1:43 PM * Full Code Date ActivatedDate ZicghiyigyiJsrgtyzb67/3/2024 5:00 PM01/31/2024 2:34 PM * Full Code Date ActivatedDate IxfeibcryyePnfqvexi22/11/2024 2:56 AM12/06/2023 2:19 PM Care Teams Team MemberRelationshipSpecialtyStart DateEnd Date Velasquez Langley MD [address] [place] [address] PCP - Xpkvomz07/8/24
--- OUTSIDE RECORDS SUMMARY | 2024-12-29 12:25 | XMS_ITS | Encounter Summary ---
Author Organization [facility] Address [address] [place] [address] Care Team Providers Care Instruments Sales Representative Name Role Phone Velasquez Langley MD Primary Care Provider Reason for Referral * (Routine) - Pending ReviewSpecialtyDiagnoses / ProceduresReferred By Contact Referred To Contact Diagnoses Paroxysmal atrial fibrillation (CMS/HCC) Procedures ECG 12 lead Isabelle Maldonado CNP [address] [place] [address] Phone: tel: fax: Referral IDStatusReasonStart DateExpiration DateVisits RequestedVisits [id number] [id number]/ Encounter Details DateTypeDepartmentCare Team (Latest Contact Info)Ylchpltmnew68/05/2025Orders Only [facility] at [facility] [address] [place] [address] Migel RenettaONESIMO Paroxysmal atrial fibrillation (CMS/HCC) (Primary Dx) Social History Tobacco UseTypesPacks/DayYears UsedDateSmoking Tobacco: FormerCigarettes Smokeless Tobacco: NeverAlcohol UseStandard Drinks/WeekCommentsNever0 (1 standard drink = 0.6 oz pure alcohol)[facility] UtilitiesAnswerDate RecordedIn the past 12 months [...] times a week01/27/2024How often do you attend scientologist or denominational services?Never01/27/2024o you belong to any clubs or organizations such as scientologist groups, unions, fraternal or athletic groups, or school groups?No01/27/2024How often do you attend meetings of the clubs or organizations you belong to?Never01/27/2024re you , , , , never , or living with a partner?Kifsups8101/27/2024 AUDIT-CAnswerDate RecordedQ1: How often do you have [...] at all 08/26/2024PHQ-2AnswerDate RecordedPatient Health Questionnaire-2 Score0 05/11/2024Finstew[facility] [place] of Occupational Health - Occupational Stress QuestionnaireAnswerDate RecordedDo you feel stress - tense, restless, nervous, or anxious, or unable to sleep at night because yourmind is troubled all the time - these days?To some vjmdsi3701/27/2024UT Safety & EnvironmentAnswerDate RecordedFear of Current or [...] homeless or living in a intermediate (including now)?No08/26/2024 Hunger Vital SignAnswerDate RecordedWithin the past 12 months, you worried that your food would run out before you got the money to buymore.Never true08/26/2024 Within the past 12 months, the food you bought just didn't last and you didn't have money to get more.Never true08/26/2024CommentsNoSex and Gender InformationValueDate RecordedSex Assigned at CtodxZarnzq88/03/2024 11:08 AM EST Legal TwrFmmcqf15/29/2022 11:01 PM EDTGender BvaqbxleByvuzi82/03/2024 11:08 AM ESTSexual OrientationHeterosexual or Xxijsaal99/03/2024 11:08 AM ESTdocumented as of this encounter Plan of Treatment DateTypeDepartmentCare Team (Latest Contact Info)Tvizcxlyunl44/08/2025 2:20 PM ESTOffice Visit [place] [address] [place] [address] Bhavesh Fulton MD [address] [place] [address] NameTypePriorityAssociated DiagnosesOrder ScheduleECG 12 leadECGRoutine Paroxysmal atrial fibrillation (CMS/HCC) Ordered: 12/29/2024documented as of this encounter Visit Diagnoses Diagnosis Paroxysmal atrial fibrillation (CMS/HCC)- Primary Atrial fibrillation documented in this encounter Care Teams Team MemberRelationshipSpecialtyStart DateEnd Velasquez Langley MD [address] [facility] [address] [address] PCP - Govznod36/8/24documented as of this encounter
--- OUTSIDE RECORDS SUMMARY | 2024-12-29 12:25 | XMS_ITS | Encounter Summary ---
Author Organization [facility] Address [address] [place] [address] Care Team Providers Care Machine Taper Name Role Phone Velasquez Langley MD Primary Care Provider Reason for Visit * ReasonCommentsMed Refill Encounter Details DateTypeDepartmentCare Team (Latest Contact Info)Qnfgfvovlvg73/22/2025Refill [facility] Surgical Intensive Care [address] [place] [id number] Ron Crooks PA-C [address] [place] [address] Mesenteric artery stenosis Social History Tobacco UseTypesPacks/DayYears UsedDateSmoking Tobacco: FormerCigarettes Smokeless Tobacco: NeverAlcohol UseStandard Drinks/WeekCommentsNever0 (1 standard drink = 0.6 oz pure alcohol)[facility] UtilitiesAnswerDate RecordedIn the past 12 months has the [employer], gas, oil, or water [employer] threatened to shut off services in your [...] week01/27/2024How often do you attend samaritan or islam services?Never01/27/2024o you belong to any clubs or organizations such as samaritan groups, unions, fraSliced Apples or athletic groups, or school groups?No01/27/2024How often do you attend meetings of the clubs or organizations you belong to?Never01/27/2024re you , , , , never , or living with a partner?Gjwjkij0401/27/2024 AUDIT-CAnswerDate RecordedQ1: How often do you have [...] at all 08/26/2024PHQ-2AnswerDate RecordedPatient Health Questionnaire-2 Score0 05/11/2024[facility] [place] [facility] - Occupational Stress QuestionnaireAnswerDate RecordedDo you feel stress - tense, restless, nervous, or anxious, or unable to sleep at night because yourmind is troubled all the time - these days?To some xuohom5301/27/2024UT Safety & EnvironmentAnswerDate RecordedFear of Current or [...] were you homeless or living in a usp (including now)?No08/26/2024 Hunger Vital SignAnswerDate RecordedWithin the past 12 months, you worried that your food would run out before you got the money to buymore.Never true08/26/2024 Within the past 12 months, the food you bought just didn't last and you didn't have money to get more.Never true08/26/2024CommentsNoSex and Gender InformationValueDate RecordedSex Assigned at LnnuoFgzlnl22/03/2024 11:08 AM EST Legal AlhMrvoyx04/29/2022 11:01 PM EDTGender DtiaqpsmDotkxc24/03/2024 11:08 AM ESTSexual OrientationHeterosexual or Sxnlqhqt98/03/2024 11:08 AM ESTdocumented as of this encounter Plan of Treatment DateTypeDepartmentCare Team (Latest Contact Info)Tkatpprjugp35/08/2025 2:20 PM ESTOffice Visit [facility] [address] [place] [address] Bhavesh Fulton MD [address] [place] [address] documented as of this encounter Visit Diagnoses Diagnosis Mesenteric artery stenosis Stricture of artery documented in this encounter Care Teams Team MemberRelationshipSpecialtyStart DateEnd Date Velasquez Langley MD [address] [facility] [address] [address] PCP - Joctlqu66/8/24documented as of this encounter
--- OUTSIDE RECORDS SUMMARY | 2024-12-29 12:31 | XMS_ITS | CCD ---
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 Name Role Phone VELASQUEZ BUNCH Unavailable Unavailable DALTON, RACHAEL K Unavailable Unavailable ALTON, BRUCE Unavailable Unavailable ALTON, BRUCE Unavailable Unavailable Velasquez Bunch Primary Care Provider JUDIE, GIOVANNA S Admitting Unavailable JUDIE, GIOVANNA [...] Unavailable HOY ., DR HOLDEN Consulting Unavailable Zidinoraher Renata Consulting Unavailable HOY ., DR HOLDEN [...] Unavailable MD Velasquez Bunch Primary Care Provider [phone] MD Anju Lees Attending Provider [phone] Velasquez Bunch MD Primary Care Provider [phone] CURRY RED Attending Unavailable NORTHIVA KING Attending Unavailable Velasquez Bunch Attending Unavailable Velasquez Bunch Primary Care Unavailable Velasquez Bunch Admitting Unavailable HORANI, SCARLETT Attending Unavailable HORANI, SCARLETT Admitting Unavailable MARKER, RYAN J Referring Unavailable HORANI, SCARLETT Attending Unavailable HORANI, SCARLETT Admitting Unavailable HORANI, SCARLETT Referring Unavailable ODILIA, MARIANNE Referring Unavailable GEMA, PEARL Referring Unavailable YAÑEZ, CELENA Referring Unavailable AKKITA GRANADOS Attending Unavailable BEACHUM, ROSA Referring Unavailable MARLEE, ULISSES Referring Unavailable GEMA, PEARL Referring Unavailable TRISTAN, SAMAR Attending Unavailable NAZZAL, MUNIER Referring Unavailable ALI, AVILA Referring Unavailable HORANI, SCARLETT Referring Unavailable HORANI, SCARLETT Referring Unavailable YAÑEZ, CELENA Referring Unavailable NAZZAL, MUNIER Referring Unavailable NAZZAL, MUNIER Referring Unavailable NAZZAL, MUNIER Referring Unavailable PRINCE, AP Referring Unavailable TURNER, RYNE Referring Unavailable PRINCE, AP Referring Unavailable BEACHUM, ROSA Referring Unavailable GEMA, PEARL Referring Unavailable RATNAM, JAZ Referring Unavailable RATNAM, JAZ Referring Unavailable HERNANDEZ, KIRSTIE Referring Unavailable MARTHA, VISHAL Referring Unavailable HERNANDEZ, KIRSTIE Referring Unavailable NAZZAL, MUNIER Referring Unavailable [place] Referring Unavailable NAZZAL, MUNIER Referring Unavailable TRISTAN, SAMAR Attending Unavailable TRISTAN, DIPTI Attending Unavailable HANNAHCAMERON Attending Unavailable ELTAHAWY, ROSIE Attending Unavailable TRISTAN, SAMAR Attending Unavailable YAÑEZ, CELENA Attending Unavailable YAÑEZ, CELENA Attending Unavailable YOVANY MONTALVO Attending Unavailable NAZZAL, MUNIER Attending Unavailable HERNANDEZ, KIRSTIE Referring Unavailable NAZZAL, MUNIER Attending Unavailable NAZZAL, MUNIER Admitting Unavailable Allergies Allergy ClassificationReported Allergen(s)Allergy TypeDate of OnsetReaction(s) Facility (7 sources)Adhesive Tape; 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: [Adhesive tape]Propensity to adverse reactions to ttij44-55-8328Kvnjdfa Reaction, [place], [place] (10 sources)CiprofloxacinDrug Mirjcto62-47-6287OsrlvekThjxs Health- [place], [place] (1 source)Hmg-Coa Reductase Inhibitors (Statins)Propensity to adverse reactions to yogv30-77-0656DtzfcH[place] (11 sources)Meperidine; 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: [MEPERIDINE]Drug Aytednu40-19-6883 [place]aphylaxisH[place], [place] (11 sources)moxifloxacin; 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: [MOXIFLOXACIN]Drug Vjovvng13-19-8501 Anaphylaxis, [place], [place] (11 sources)Nalbuphine; 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: [NALBUPHINE]Drug Cdhdwib93-54-7057Ncotqkp [facility]- [place], [place] (11 sources)Promethazine; 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: [PROMETHAZINE]Drug Gaisqwf33-15-8443 [place], [place] (1 source)Sulfonamides (Antibiotic)Propensity to adverse reactions to drug 40-92-1896XeruhH[place], [place] (3 sources)black walnut pollen extract; 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: [LLAWKMY-ECB-ZAW REDUCTASE INHIBITORS]Drug Eihixtw36-47-9023[facility]ewC[facility] (2 sources)CiprofloxacinDrug Psieokq17-42-3698Mla [facility] Repository (2 sources)LevamisoleDrug Pycmord84-01-0990ExfC[facility] (2 sources)MeperidineDrug Sltgtig31-78-7212DlzC[facility] (2 sources)moxifloxacinDrug Vfesqmp92-91-1637EnpC[facility] (2 sources)NalbuphineDrug Tripbaa50-86-3767Hvt [facility] Repository (1 source)Sulfonamides (Antibiotic)Drug allergy (disorder)31-18-1897Tii [facility] Repository (4 sources)Sulfacetamide; 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: [sulfacetamide]Drug Xhnykjs80-61-4557 Unknown [facility], [facility] ([facility] sources)Sulfur; 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: [sulfur]Drug Yymasxk84-21-8861WzhtonmParkview Health (4 sources)Gomijst-HMF-NdV Reductase Inhibitor; 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: [Uutypxj-DFI-UkU Reductase Inhibitor]Allergy to iofhkwhlj05-58-3579ZzcjkpvOhio [facility] (6 sources)atorvastatinDrug Skypwqu94-23-8068QltwuywGVVI Healthcare Work Phone: (7 sources)cefdinir; 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: [CEFDINIR]Drug Bqahiyl61-01-4790RiezuueTNGP Healthcare (6 sources)HMG-CoA reductase inhibitorDrug Qbixumn67-16-0111KyvisglKABJ Healthcare (6 sources)MeperidineDrug Kqhmoje93-85-8536SbpqqoyBFIV Healthcare (6 sources)PromethazineDrug Cnmnrjx73-78-0206EHCV [facility] (6 sources)Sulfonamides (Antibiotic)Drug Urypkhc52-36-2990AuddkqwTJLC Healthcare (6 sources)Wound Dressing AdhesiveDrug Ghronxg09-71-1997AdmupzwDRRY Healthcare (1 source)CiprofloxacinDrug Yyhueuo48-49-0555WzpzehyqzLicking [facility] Rep[facility] (1 source)MeperidineDrug Emgxelp08-93-1518HpiidautrLicking Memorial Hospital Repository (1 source)moxifloxacinDrug Eskygil88-60-8138QpryozgvhLicking Memorial Hospital Repository (1 source)NalbuphineDrug Aypgicd92-09-5980JuninyzdxLicking Memorial Hospital Repository (1 source)PromethazineDrug Sqngago49-23-8077MgydzzlhzLicking Memorial Hospital Repository (1 source)Aspirin; 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: [ASPIRIN]Drug Rgumgfb03-75-8291DjbuwkowjzPro[facility] (1 source)Sulfonamides (Antibiotic); 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: [SULFA (SULFONAMIDE ANTIBIOTICS)]Propensity to adverse reactions to drug (disorder)06-27-2017 [facility] Medications Current Medications MedicationDrug Class(es)DatesSig (Normalized)Sig (Original)acetaminophen 500 mg oral tablet (2 sources)Start: 59-39-7462wfwl 2 tablets by mouth every six hoursAcetaminophen (Acetaminophen Extra Strength) 500 mg tablet Active 1000 MG PO Every 6 hours 2023 12:00amStart: 01-37-4717cefuzjtoyuoko (TYLENOL) tablet 650 mg acetaminophen 325 mg / butalbital 50 mg / caffeine 40 mg oral tablet (1 source)Barbiturate, Central Nervous System Stimulant, MethylxanthineStart: 93-21-4762nubrxfsdvm-acetaminophen-caffeine (FIORICET, ESGIC) per tablet 1 olgxrapjf213817 200 actuat albuterol 0.09 mg/actuat metered dose inhaler (3 sources)beta2-Adrenergic AgonistStart: 83-91-0053ykge 1 puff(s) by inhalation twice dailyAlbuterol Sulfate Active 2 PUFF INHALATION Twice daily April 08, 2023 12:00amStart: 12-13-3894Gyuavulpf Sulfate Active INHALATION April 08, 2023 12:00amalbuterol 0.833 mg/ml / ipratropium bromide 0.167 mg/ml inhalant solution (2 sources)Anticholinergic, beta2-Adrenergic AgonistStart: 10-11-2019 ipratropium-albuterol (DUONEB) nebulizer solution 1 ampuleStart: 10-09-2019 End: ampule, Inhalation, EVERY 4 HOURS WHILE AWAKE, First dose on 10/09/19 at 1600amiodarone hydrochloride 200 mg oral tablet (5 sources)AntiarrhythmicStart: 79-66-9749cgwq 2 tablets by mouth twice daily, then [...] (5 sources)Dihydropyridine Calcium Channel BlockerStart: 06-29-2017 End: 39-68-4028vksn 1 tablet by mouth once dailyamLODIPine (NORVASC) 10 MG tablet Take 1 tablet by mouth daily 30 tablet 3 10/15/2019 Activeapixaban 5 mg oral tablet (5 sources)Factor Xa Inhibitortake 1 tablet by mouth every twelve hoursEliquis 5 MG tablet 5 mg every 12 (twelve) hours Activeaspirin 81 mg chewable tablet (2 sources)Platelet Aggregation Inhibitor, Nonsteroidal Anti-inflammatory Drug Start: 09-45-2783twqj 1 tablet by mouth once dailyaspirin 81 MG chewable tablet Take 1 tablet by mouth daily 30 tablet 3 10/16/2019 Activeaugmented betamethasone 0.5 mg/ml topical cream (6 sources)Corticosteroidbetamethasone, augmented, (Diprolene AF) 0.05 % cream Indications: Atopic Dermatitis Apply 1 application topically in the morning and 1 application before bedtime. Activebisacodyl 10 mg rectal suppository (1 source)Stimulant LaxativeStart: 92-38-4498wbaeczbdk (DULCOLAX) suppository 10 mgcalcium chloride 0.0014 meq/ml / potassium chloride 0.004 meq/ml / sodium chloride 0.103 meq/ml / sodium lactate 0.028 meq/ml injectable solution (1 source)Start: 76-73-1536ceklkzxl ringers infusiondiclofenac sodium 75 mg delayed release oral tablet (3 sources)Nonsteroidal Anti-inflammatory DrugStart: 96-68-1072Vfwmeprabu Sodium Active 75 MG PO .prn April 08, 2023 12:00amdocusate sodium 100 mg oral capsule (2 sources)Start: 10-17-2019 End: 73-55-8032naxo 2 capsules by mouth once dailydocusate sodium (COLACE) 100 MG capsule Take 2 capsules by mouth daily 60 capsule 1 10/17/2019 11/17/2019 ActiveStart: 38-53-1385gwnhdgcy sodium (COLACE) capsule 200 mg2 ml dupilumab 150 mg/ml auto-injector (3 sources)Interleukin-4 Receptor alpha AntagonistStart: 01-14-2023 End: 71-30-5836Bhwpzduk 300 MG/2ML injection Indications: Other atopic dermatitis Inject 2 mL (300 mg) under the skin every 14 (fourteen) days. 4 mL 01/14/2023 01/16/2024 Discontinued (Side effects)empagliflozin 10 mg oral tablet (7 sources)Sodium-Glucose Cotransporter 2 InhibitorStart: 27-92-6593pijt 1 tablet by mouth once dailyEmpagliflozin (Jardiance) 10 mg tablet Active 10 MG PO Daily April 17, 2023 12:00am if FSBS >2000.4 ml enoxaparin sodium 100 mg/ml prefilled syringe (1 source)Low Molecular Weight HeparinStart: 25-66-4263gfezqq 40 mg by subcutaneous injection once daily40 mg, Subcutaneous, DAILY, First dose on 10/09/19 at 1245ezetimibe 10 mg oral tablet (11 sources)Dietary Cholesterol Absorption InhibitorStart: 86-58-2721tgkt 1 tablet by mouth once daily at bedtimeEzetimibe (Zetia) 10 mg tablet Active 10 MG PO Daily at bedtime April 08, 2023 12:00amfexofenadine hydrochloride 180 mg oral tablet (5 sources)Histamine-1 Receptor AntagonistStart: 01-16-2024 End: 59-09-2928sqnz 1 tablet by mouth once dailyfexofenadine (Brenda) 180 MG tablet Indications: Other atopic dermatitis Take 1 tablet daily, by mouth, 30 days 30 tablet 11 01/16/2024 05/21/2024 Discontinuedfurosemide 20 mg oral tablet (9 sources)Loop DiureticStart: 61-83-3803mzkv 20 mg by mouth once daily Furosemide Active 20 MG PO Daily April 08, 2023 12:00amfurosemide (Lasix) 8 MG/ML solution Take by mouth Daily. Activeglucagon (rdna) 1 mg injection (1 source)Antihypoglycemic AgentStart: 51-91-1761twelhqzc (rDNA) injection 1 mg 150 ml glucose 50 mg/ml injection (3 sources)Start: 08-19-6734kaqytjvo 5 % solutionStart: 74-15-3339nbkireu (GLUTOSE) 40 % oral gel 15 gStart: 99-92-1580raeimlss 50 % IV solution hydrALAZINE hydrochloride 100 mg oral tablet (3 sources)Arteriolar VasodilatorStart: 93-59-9408omcp 1 tablet by mouth every eight hourshydrALAZINE (APRESOLINE) 100 MG tablet Take 1 tablet by mouth every 8 hours 90 tablet 3 10/15/2019 ActiveStart: 70-63-2562lojbNHTXHDA (APRESOLINE) tablet 100 mgStart: 70-17-7851swwyMTTRFHS (APRESOLINE) injection 10 mg hydroCHLOROthiazide 25 mg oral tablet (9 sources)Thiazide DiureticStart: 84-28-4155rdso 25 mg by mouth once daily in the morningHydrochlorothiazide Active 25 MG PO Every morning April 08, 2023 12:00amtake 2 tablets by mouth in the morninghydroCHLOROthiazide (HYDRODiuril) 12.5 MG tablet Take 25 mg by mouth in the morning. ActivehydrOXYzine hydrochloride 25 mg oral tablet (10 sources)AntihistamineStart: 01-16-2024 End: 20-71-6756jxuo 1 tablet by mouth every 30 days as neededhydrOXYzine HCl (Atarax) 25 MG tablet Indications: Other atopic dermatitis Take 1 tablet, by mouth,as needed for itching at bedtime, 30 day supply. 30 tablet 11 01/16/2024 05/21/2024 DiscontinuedStart: 02-41-6978oiiw 1 tablet by mouth four times daily as neededhydrOXYzine HCl (Atarax) 25 MG tablet TAKE 1 TABLET BY MOUTH 4 TIMES A DAY NEEDED FOR 10 DAYS 11/13/2023 Activeinsulin lispro 100 unt/ml injectable solution (2 sources)Insulin AnalogStart: 98-67-3297sfkwcmi lispro (HUMALOG) injection vial 0-3 Units24 hr [...] sources)Nonsteroidal Anti-inflammatory Drug, Cyclooxygenase InhibitorStart: 10-15-2019 End: 89-58-2285izpcvajsy (TORADOL) injection 15 mgStart: 10-09-2019 End: 94-16-2821rnqxddvnu (TORADOL) injection 15 mglabetalol (NORMODYNE;TRANDATE) injection syringe 10 mg (1 source)Start: 49-15-4539eclbkdltf (NORMODYNE;TRANDATE) injection syringe 10 mglisinopril 40 mg oral tablet (4 sources)Angiotensin Converting Enzyme InhibitorStart: 27-28-3882oxfg 1 tablet by mouth once dailylisinopril (PRINIVIL;ZESTRIL) 40 MG tablet Take 1 tablet by mouth daily 30 tablet 3 10/16/2019 ActiveStart: 68-55-6971zxuhlhgtmy (PRINIVIL;ZESTRIL) tablet 40 mgStart: 10-10-2019 End: 56-36-8835imyibyctxg (PRINIVIL;ZESTRIL) tablet 20 mgmeclizine hydrochloride 25 mg oral tablet (13 sources)AntiemeticStart: 57-21-6849zarm 25 mg by mouth once dailyMeclizine Active 25 MG PO Daily April 08, 2023 12:00amStart: 10-15-2019 End: 69-08-2994yvaolszii (ANTIVERT) tablet 12.5 mgStart: 10-09-2019 End: 11-10-8243ajmkjpsex (ANTIVERT) tablet 25 mgtake 1 tablet by mouth three times daily as needed for dizzinessmeclizine (Antivert) 25 MG tablet Take 25 mg by mouth 3 (three) times a day as needed for dizziness. Fptkon83 hr memantine hydrochloride 28 mg extended release oral capsule (9 sources)D-nllfoy-N-aspartate Receptor AntagonistStart: 75-89-1018fvqm 28 mg by mouth once daily in the morningMemantine Active 28 MG PO Every morning April 08, 2023 12:00amStart: 80-39-0349Qxfzfhckn Active MG PO April 08, 2023 12:00ammemantine (Namenda Titration Pack) 28 x 5 MG & 21 x 10 MG tablet pack Take by mouth See administration instructions. Follow package directions. Adrenc01 hr metFORMIN hydrochloride 500 mg extended release oral tablet (9 sources)BiguanideStart: 89-48-5102szvb 500 mg by mouth twice dailyMetformin Active [...] 100 mg oral tablet (4 sources)beta-Adrenergic BlockerStart: 11-38-0804ryic 1 tablet by mouth twice dailymetoprolol tartrate (LOPRESSOR) 100 MG tablet Take 1 tablet by mouth 2 times daily 60 tablet 5 10/15/2019 ActiveStart: 27-66-9131mshpekpqfu tartrate (LOPRESSOR) tablet 100 mgStart: 10-09-2019 End: 05-31-3438hfot 50 mg by mouth twice daily50 mg, Oral, 2 TIMES DAILY, First dose on 10/09/19 at 1245 End: 51-08-1214ijus 2 tablets by mouth twice dailymetoprolol tartrate [...] (ZOFRAN-ODT) disintegrating tablet 4 mg (1 source)Start: 91-05-3438mbgvcvsixpi (ZOFRAN-ODT) disintegrating tablet 4 mg polyethylene glycol 3350 83175 mg powder for oral solution (3 sources)Osmotic LaxativeStart: 10-09-2019 End: 94-15-3510fgnn 17 g by mouth once dailypolyethylene glycol (GLYCOLAX) 17 g packet Take 17 g by mouth daily 527 g 5 10/16/2019 11/15/2019 ActivePotassium (6 sources)Potassium (POTASSIMIN PO) Take by mouth. ActivePotassium Chloride (2 sources)Start: 15-75-2459nvpclputg chloride (KLOR-CON M) extended release tablet 40 mEqStart: 51-94-6498clip 10 mL intravenous route every hour as [...] sodium chloride 9 mg/ml injection (4 sources)Start: 73-39-4514mqpmlf chloride flush 0.9 % injection 10 mLStart: 10-11-2019 End: 41-09-2183xoxohl chloride flush 0.9 % injection 10 mLStart: 83-53-336933 mL, Intravenous, EVERY 12 HOURS SCHEDULED (2 times per day), First dose on 10/09/19 at 2100Start: 38-07-7071wgxs 10 mL intravenous route once as olsqyb51 mL, Intravenous, PRN, Line Care, After every IV line use, Starting 10/09/19 at 1227spironolactone 100 mg oral tablet (4 sources)Aldosterone AntagonistStart: 64-56-2198timf 1 tablet by mouth once dailyspironolactone (ALDACTONE) 100 MG tablet Take 1 tablet by mouth daily 30 tablet 3 10/16/2019 ActiveStart: 10-09-2019 End: 79-16-8767drzeanshdjsrsy (ALDACTONE) tablet 50 mgtiotropium 0.018 mg inhalation powder (5 sources)Anticholinergictake 1 capsule by inhalation once dailySpiriva HandiHaler 18 MCG inhalation capsule inhale 1 capsule by inhalation route every day Inhalation Activetriamcinolone acetonide 1 mg/ml topical cream (5 sources)CorticosteroidStart: 19-17-7008grgcitkythdlm (Kenalog) 0.1 % cream Indications: Other atopic dermatitis Apply to affected areas, up to twice a day when flared, do not use one the face, groin, or underarms, 30 day supply 454 g 11 01/16/2024 ActiveVit C,K-Ui-Zfatg-Lutein-Zeaxan (Preservision Areds-2) 250-90-40-1 mg capsule (1 source)Start: 98-20-2673Slj C,P-Ao-Nidqz-Lutein-Zeaxan (Preservision Areds-2) 250-90-40-1 mg capsule Active 1 TAB PO Twice daily April 17, 2023 12:00am Completed/Discontinued Medications MedicationDrug Class(es)DatesSig (Normalized)Sig (Original)cloNIDine hydrochloride 0.1 mg oral tablet (2 sources)Central alpha-2 Adrenergic AgonistStart: 10-10-2019 End: 16-06-0067wktFBIqae (CATAPRES) tablet 0.1 mgDupilumab (3 sources)Start: 04-08-2023 End: 01-90-5699Tmjivkyem (Dupixent Pen) 200 mg/1.14 mL pen injector Discontinued 200 MG SUBCUT EVERY 2 WEEKS April 08, 2023 12:00am April 17, 2023 12:56pmStart: 29-17-3633Hlewphxns (Dupixent Pen) 200 mg/1.14 mL pen injector Active 200 MG SUBCUT EVERY 2 WEEKS April 08, 2023 12:00am2 ml fentaNYL 0.05 mg/ml injection (1 source)Opioid AgonistStart: 10-09-2019 End: 94-59-0490ifnatBBJ (SUBLIMAZE) injection 50 mcgfluconazole 200 mg oral tablet (1 source)Azole AntifungalStart: 10-16-2019 End: 96-96-6100qcsrkgzroij (DIFLUCAN) tablet 200 mggadoteridol (PROHANCE) injection 12 mL (1 source)Start: 10-15-2019 End: 32-07-9895swxojktggwr (PROHANCE) injection 12 mLgadoteridol (PROHANCE) injection 13 mL (1 source)Start: 10-11-2019 End: 43-76-6564chqrvdzvoeo (PROHANCE) injection 13 mL1 ml haloperidol 5 mg/ml injection (1 source)Typical AntipsychoticStart: 10-09-2019 End: 96-48-1352wqsbcngismu lactate (HALDOL) injection 5 mgStart: 10-09-2019 End: 55-57-6122xzmevpplhfk lactate (HALDOL) injection 5 mgIohexol (2 sources)Radiographic Contrast AgentStart: 10-10-2019 End: 70-73-6804afchnva (OMNIPAQUE 350) solution 90 mLStart: 10-09-2019 End: 67-10-5561xmhgotg (OMNIPAQUE 350) solution 75 mLirbesartan 300 mg oral tablet (1 source)Angiotensin 2 Receptor Dodie End: 13-80-0783xoxu 1 tablet by mouth once dailyirbesartan (AVAPRO) 300 MG tablet Take 300 mg by mouth daily 0 10/09/2019 Discontinued (LIST CLEANUP) LORazepam 2 mg oral tablet (1 source)BenzodiazepineStart: 10-11-2019 End: 94-28-7270CIZboftxy (ATIVAN) tablet 2 mg100 ml magnesium sulfate 10 mg/ml injection (1 source)Start: 10-10-2019 End: 59-68-3421icjxumjur sulfate 1 g in dextrose 5% 100 mL IVPB methylPREDNISolone 125 mg injection (1 source)CorticosteroidStart: 10-10-2019 End: 58-73-6609prhipsXWRADUYwpeif sodium (SOLU-MEDROL) injection 250 mg2 ml metoclopramide 5 mg/ml prefilled syringe (1 source)Dopamine-2 Receptor AntagonistStart: 10-10-2019 End: 33-50-5665uwlnbpsfeppzis (REGLAN) injection 10 mgniCARdipine (CARDENE) 25 mg in dextrose 5 % 250 mL infusion (1 source)Start: 10-09-2019 End: 90-06-5179hwLSBopcdof (CARDENE) 25 mg in dextrose 5 % 250 mL infusion2 ml ondansetron 2 mg/ml injection (2 sources)Serotonin-3 Receptor AntagonistStart: 10-09-2019 End: 66-03-8358eyluvxdydmx (ZOFRAN) injection 4 mgStart: 10-09-2019 End: 08-29-1031rdfnlsircsf (ZOFRAN) 4 MG/2ML injectionpotassium bicarbonate 20 meq effervescent oral tablet (1 source)Start: 10-12-2019 End: 51-45-3263hecexaxlf bicarb-citric acid (EFFER-K) effervescent tablet 40 mEq valproate (DEPACON) 500 mg in dextrose 5 % 100 mL IVPB (1 source)Start: 10-13-2019 End: 58-58-8771kqavvlzbm (DEPACON) 500 mg in dextrose 5 % 100 mL IVPB Problems Active Problems Problem ClassificationProblemDateDocumented DateEpisodic/ChronicAllergic reactions (4 sources)Atopic dermatitis; 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: [Other atopic dermatitis]01-16-2024 ChronicAortic; peripheral; and visceral artery aneurysms (3 sources)Abdominal aortic aneurysm without rupture; 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: [Aneurysm of infrarenal abdominal aorta ]Onset: 390855-21-3545UqeoyroAkbavxr dysrhythmias (2 sources)Paroxysmal atrial fibrillation; 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: [Paroxysmal atrial fibrillation]Onset: 45-77-9609UtzkugwGewmqktvoj associated with dizziness or vertigo (6 sources)Dizziness and giddiness; 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: [Vertigo]Onset: 06-27-2017 EpisodicCongestive heart failure; nonhypertensive (6 sources)Chronic diastolic (congestive) heart failure; 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: [Acute combined systolic (congestive) and diastolic (congestive) heart failure]Onset: 95-02-4336MrzvnrlPgorhatx atherosclerosis and other heart disease (2 sources)Atherosclerotic heart disease of red devil coronary artery without angina pectoris; 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: [Atherosclerotic heart disease of red devil coronary artery without angina pectoris]Onset: 57-87-8063UqqdiekEckcocqu mellitus without complication (5 sources)Diabetes mellitus; 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: [Type 2 diabetes mellitus without complications]Onset: 931775-91-6476LunisthHypkerhiz of lipid metabolism (8 sources)Hyperlipidemia; 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: [Hyperlipidemia, unspecified]Onset: 528037-35-5942YiivpuaPcgevxopt hypertension (3 sources)Hypertensive disorder; 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: [Essential (primary) hypertension]17-18-1475MfmjhixTqfvx and electrolyte disorders (2 sources)Hypokalemia; 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: [Hypokalemia]Onset: EpisodicHeadache; including migraine (2 sources)Headache; 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: [Acute intractable headache]10-10-2019 EpisodicHypertension with complications and secondary hypertension (8 sources)Hypertensive urgency ; 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: [Secondary hypertension]Onset: 851739-76-8753NyrlcacJuioym and vomiting (1 source)Nausea and vomiting; 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: [Nausea and vomiting, intractability of vomiting not specified, unspecified vomiting type]Episodic Nutritional deficiencies (2 sources)Malnutrition (calorie); 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: [Moderate malnutrition (HCC)] Onset: 951166-50-2172BniscjdOurbm aftercare (2 sources)Taking high risk medication; 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: [Other care home (current) drug therapy]51-29-2755NaxibednTrkbf circulatory disease (2 sources)Celiac artery compression syndrome; 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: [Celiac artery compression syndrome]Onset: 29-72-8727OvldkcgPwkyq connective tissue disease (3 sources)Hand pain; 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: [Pain in right hand]91-42-9660OcpkfqdiVaamn connective tissue disease (6 sources)Triggering of digit; 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: [Trigger finger, right middle finger]23-49-7971IqgwzgriMecdl connective tissue disease (3 sources)Trigger finger, right middle finger; 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: [Trigger finger (acquired)]41-38-2571ZpyvujqbUnzah connective tissue disease (3 sources)Trigger finger, right ring finger; 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: [Trigger finger (acquired)]64-44-2545InnlnatsNosvlljeqq and visceral atherosclerosis (2 sources)Chronic vascular disorders of intestine; 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: [Chronic vascular disorders of intestine]Onset: 56-11-5605PecbiydVsrnbkiouf and visceral atherosclerosis (2 sources)Stenosis of right renal artery; 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: [Right renal artery stenosis (HCC)]Onset: 123812-33-9847Glbjsxlxqgz; intervertebral disc disorders; other back problems (1 source)Acute low back pain; 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: [Acute low back pain, unspecified back pain laterality, unspecified whether sciatica present]EpisodicSyncope (4 sources)Syncope and collapse; 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: [SYNCOPE AND COLLAPSE]Onset: 35-51-1359ZenqoiwzEnhwczaghhkk (1 source)Hypertensive urgency; 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: [Hypertensive urgency]Onset: 99-70-0893Udxfuwbbunzu (3 sources)COUGH, UNSPECIFIED; 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: [COUGH, UNSPECIFIED]Onset: 66-51-3192Pxenocfeimpw (1 source)CONTACT W/AND (SUSP) EXPOS COVID-19; 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: [CONTACT W/AND (SUSP) EXPOS COVID-19]Onset: 64-86-5129Fxddxunczypw (1 source)Infrarenal abdominal aortic aneurysm, without rupture; 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: [Infrarenal abdominal aortic aneurysm, without rupture]Onset: 01-27-2024 Unclassified (1 source)Other ventricular tachycardia; 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: [Other ventricular tachycardia]Onset: 85-41-7785Xhyyeqzjakcg (1 source)Ventricular tachycardia, unspecified; 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: [Ventricular tachycardia, unspecified]Onset: 12-81-9663Rcwsfwokwauj (1 source)Abdominal aortic aneurysm, without rupture, unspecified; 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: [Abdominal aortic aneurysm, without rupture, unspecified]Onset: 01-27-2024 Past or Other Problems Problem ClassificationProblemDateDocumented DateEpisodic/ChronicAcute and unspecified renal failure (2 sources)Acute kidney failure, unspecified; 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: [Acute kidney failure, unspecified]Onset: 19-63-9128DjrmonbvGnvkwza tract disease (2 sources)Calculus of gallbladder without cholecystitis without obstruction; 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: [Calculus of gallbladder without cholecystitis without obstruction]Onset: 50-61-6028TevsmtogHjjzcbh dysrhythmias (2 sources)Palpitations; 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: [Palpitations]Onset: EpisodicGenitourinary symptoms and ill-defined conditions (2 sources)Hesitancy of micturition; 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: [Hesitancy of micturition] Onset: 01-06-7379XqtkdmmiDjmxxzj and fatigue (2 sources)Weakness; 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: [Weakness]Onset: 75-58-2981SwcclkosRzlpw aftercare (2 sources)Other care home (current) drug therapy; 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: [Other security agent (current) drug therapy]Onset: 70-66-1183NieeyeueDmufd gastrointestinal disorders (2 sources)Constipation, unspecified; 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: [Constipation, unspecified] Onset: 40-84-1488QuhikeuvBvnfo lower respiratory disease (2 sources)Other forms of dyspnea; 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: [Other forms of dyspnea]Onset: 59-03-8801CbddjrarCrvyu nervous system disorders (2 sources)Other acute postprocedural pain; 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: [Other acute postprocedural pain]Onset: 03-35-7018LlpmytcoVmmxfiznfnjx (1 source)COUGH, UNSPECIFIED; 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: [COUGH, UNSPECIFIED]Onset: 45-70-2752Ynwrkcawtlpj (1 source)Infrarenal abdominal aortic aneurysm, without rupture; 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: [Infrarenal abdominal aortic aneurysm, without rupture]Onset: 07-22-2024 Unclassified (1 source)Other ventricular tachycardia; 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: [Other ventricular tachycardia]Onset: 00-93-5033Kqxvfeglhjnr (1 source)Ventricular tachycardia, unspecified; 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: [Ventricular tachycardia, unspecified]Onset: 59-85-4461Wzjmheusxoqq (1 source)Abdominal aortic aneurysm, without rupture, unspecified; 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: [Abdominal aortic aneurysm, without rupture, unspecified]Onset: 01-27-2024 Results Test NameValueInterpretationReference YzrfkIjklqgsn02iy 41-30-566563NwsxikKnox Community Hospital36Spoke with patient and she was currently in the car and not able to check her BP and HR. Asked her to call me back later today when she gets home and checks those. Patient agreed to do so.NormalUnSCCI Hospital Lima36on 56-94-385587MjevqbPcxhvpwroe of [place] [facility] Quxzwq84ns 91-23-055050WpitvjKnox Community HospitalBASIC METABOLIC PANELon 23-05-2916Tgryz gap [Moles/Vol]11 mmol/LNormal7-20UnSCCI Hospital LimaComment on above:Performed By: #### [id number] ####[facility] ([facility])[address] [place], [place] [address]Vojlktk [Mass/Vol]8.6 mg/dLNormal8.6-10.3UnSCCI Hospital LimaComment on above:Performed By: #### [id number] ####[facility] ([facility])[address] [place], [place] [address]Qawfmwgo [Moles/Vol]107 mmol/LNormal 98-107UnSCCI Hospital LimaComment on above:Performed By: #### [id number] ####[facility] ([facility])[address] [place], [place] [address]QA1 [Moles/Vol]26 mmol/OFrplll48-79YygxbmphgvSCCI Hospital LimaComment on above:Performed By: #### [id number] ####[facility] ([facility])[address] [place], [place] [address]Qaawnaoitb [Mass/Vol]1.28 mg/dLHigh0.60-1.20UnSCCI Hospital LimaComment on above:Performed By: #### [id number] ####[facility] ([facility])[address] [place] [address]UQPLPEEDLL FILTRATION RATE ML/MIN/1.73 SQ M.ZVKFTMARZ21.1 mL/min/1.73m*2Low>60.0UnSCCI Hospital LimaComment on above:Result Comment: The [facility]???s estimated glomerular filtration rate (eGFR) will [...] anyone group of individuals.Performed By: #### [id number] ####[facility] ([facility])[address] [place] [address]Gjqeofw [Mass/Vol]81 mg/pECduwgm29-535CkbdoijukjSCCI Hospital LimaComment on above:Performed By: #### [id number] ####[facility] ([facility])[address] [place] [address]Ajqmbqsfv [Moles/Vol]4.5 mmol/LNormal3.5-5.1UnSCCI Hospital LimaComment on above:Performed By: #### [id number] ####[facility] ([facility])[address] [place] [address]Ifpgir [Moles/Vol]139 mmol/L Ecjavb200-298IqqrvxqplfSCCI Hospital LimaComment on above:Performed By: #### [id number] ####[facility] ([facility])[address] [place], [place] [address]Mcgl nitrogen [Mass/Vol]26 mg/dLHigh7-25UnSCCI Hospital LimaComment on above:Performed By: #### [id number] ####[facility] ([facility])[address] [place] [address]OVQF NITROGEN/CREATININE (MASS RATIO) IN SER/PLAS20.3Normal [facility] HospitalComment on above:Performed By: #### [id number] ####[facility] ([facility])[address] [place] [address]ICJICWK, IONIZED on 30-08-9699AIIJCOQ IONIZED (MMOL/L) IN BLOOD1.00 mmol/LLow1.15-1.33UnSCCI Hospital LimaComment on above:Performed By: #### [id number] ####[facility] RESPIRATORY [id number] [place] [address] USACBCon 08-27-2024 Erythrocyte distribution width (RBC) [Ratio]17.6 %High11.5-15.0UnSCCI Hospital LimaComment on above:Performed By: #### [id number] ####[facility] ([facility])[address] [place] [address]AXZIQCNRAPF MEAN CORPUSCULAR HEMOGLOBIN CONCENTRATION (G/DL) BY DSWJYBNLV61.6 g/dLLow32.0-35.0 [facility] HospitalComment on above:Performed By: #### [id number] ####[facility] ([facility])[address] [place] [address]Hoyuoogitd (Bld) [Volume fraction]40.9 %Sqqczo93.0-45.0UnSCCI Hospital [place] Comment on above:Performed By: #### [id number] ####[facility] ([facility])[address] [place] [address]Txzlbwjvpn (Bld) [Mass/Vol]12.1 g/uEDosfpu13.0-15.0 [facility] HospitalComment on above:Performed By: #### [id number] ####[facility] ([facility])[address] [place] [address]BAH (RBC) [Entitic mass]29.7 hjIigrka23.0-33.0UnSCCI Hospital LimaComment on above:Performed By: #### [id number] ####[facility] ([facility])[address] [place] [address]SWT (RBC) [Entitic vol]100.2 bJGosj87.0-98.0UnSCCI Hospital LimaComment on above:Performed By: #### [id number] ####[facility] ([facility])[address] [place] [address]BQFZJCWTZ (10*3/UL) IN BLOOD AUTOMATED GFRJG147 10*3/dKWrqsjr874-468ResagusthoSCCI Hospital Lima Comment on above:Performed By: #### [id number] ####[facility] ([facility])[address] [place] [address]GEB (Bld) [#/Vol]4.08 10*6/uLNormal3.80-5.00 [facility] [place] HospitalComment on above:Performed By: #### [id number] ####[facility] ([facility])[address] [place] [address]BCC (Bld) [#/Vol]7.20 10*3/uLNormal4.00-10.60UnSCCI Hospital LimaComment on above:Performed By: #### [id number] ####[facility] ([facility])[address] [place] [address]APHFYPUoq 87-70-0642CDLWKVNHtlvabZzldrieheq [facility] HospitalDSon 89-05-8402WOCsxdqqTsknfpifah [facility] HospitalMAGNESIUMon 96-46-6343Newbpwqjt [Mass/Vol]3.0 mg/dLHigh1.9-2.7UnSCCI Hospital LimaComment on above:Performed By: #### [id number] ####[facility] ([facility])[address] [place] [address]Jgxqvn Onlyon 72-38-0070Vgddxj Only [id number] Shayy Maynard 1945 F Date Provider Department Center 08/27/2024 17925-LZLSLIBIA KEATING HVCVASEJADAO [place] [facility] No family history on fileNormalUniversTrinity Health System East CampusPHOSPHORUSon 57-22-3367Jyqzhwrxm [Mass/Vol]3.9 mg/dLNormal2.5-5.0UnSCCI Hospital LimaComment on above:Performed By: #### [id number] ####[facility] (BEAKER)[address] [place], [place] [address]mb 37-45-095426KhqpjsKwjflemkuz [facility] HospitalANESon 85-71-4873VYOSVpgzteVkbnfzpqup [facility] HospitalANESNormalUniversity [facility] HospitalBASIC METABOLIC PANELon 80-98-0186Nlbny gap [Moles/Vol]12 mmol/LNormal7-20UnSCCI Hospital LimaComment on above:Performed By: #### [id number] ####[facility] (BEAKER)[address] [place], [place] [address]Mirnoeq [Mass/Vol]8.9 mg/dLNormal 8.6-10.3UnSCCI Hospital LimaComment on above:Performed By: #### [id number] ####[facility] (BEAKER)[address] [place], [place] [address]Iyoxuvgo [Moles/Vol]106 mmol/BBpqdue50-400NpsqvintvySCCI Hospital LimaComment on above:Performed By: #### [id number] ####[facility] HOSP[facility] LAB (BEAKER)[address] [place], [place] [address]CC6 [Moles/Vol]28 mmol/QCfwnli45-74VbbrwkfcnzSCCI Hospital LimaComment on above:Performed By: #### [id number] ####[facility] H[facility] LAB (BEAKER)[address], [place] [address]Qjiykooahd [Mass/Vol]1.27 mg/dLHigh 0.60-1.20UnSCCI Hospital LimaComment on above:Performed By: #### [id number] ####[facility] H[facility] LAB (BEAKER)[address], [place] [address]KCAPFFWUYP FILTRATION RATE ML/MIN/1.73 SQ M.ESAYTERBO19.5 mL/min/1.73m*2Low>60.0UnSCCI Hospital LimaComment on above:Result Comment: The [facility]???s estimated glomerular filtration rate (eGFR) will [...] group of individuals. Performed By: #### [id number] ####[facility] ([facility])[address] [place], [place] [address]Lvwtttq [Mass/Vol]101 mg/oNKyec12-346MwswuwnvgaSCCI Hospital LimaComment on above:Performed By: #### [id number] ####[facility] ([facility])[address] [place] [address]Ysfomrnee [Moles/Vol]4.5 mmol/LNormal 3.5-5.1UnSCCI Hospital LimaComment on above:Performed By: #### [id number] ####[facility] ([facility])[address] [place], [place] [address]Vkwrmo [Moles/Vol]141 mmol/RIisnfq206-850GkodphanwhSCCI Hospital LimaComment on above:Performed By: #### [id number] ####[facility] ([facility])[address] [place], [place] [address]Ejxb nitrogen [Mass/Vol]25 mg/dLNormal7-25UnSCCI Hospital LimaComment on above:Performed By: #### [id number] ####[facility] ([facility])[address] [place], [place] [address]YDXO NITROGEN/CREATININE (MASS RATIO) IN SER/PLAS19.7NormalUniversTrinity Health System East CampusComment on above: Performed By: #### [id number] ####[facility] ([facility])[address] [place] [address]WSMoe 44-00-3500Rsdenvycsjh distribution width (RBC) [Ratio]17.0 %High 11.5-15.0UnSCCI Hospital LimaComment on above:Performed By: #### [id number] ####[facility] ([facility])[address] [place] [address] ERYTHROCYTE MEAN CORPUSCULAR HEMOGLOBIN CONCENTRATION (G/DL) BY LDEFASWZJ66.6 g/dLLow32.0-35.0UnSCCI Hospital LimaComment on above:Performed By: #### [id number] ####[facility] ([facility])[address] [place] [address] Hematocrit (Bld) [Volume fraction]39.6 %Zcbwqm44.0-45.0UnSCCI Hospital LimaComment on above:Performed By: #### [id number] ####[facility] ([facility])[address] [place] [address]Bxxzkpsdpb (Bld) [Mass/Vol]12.5 g/dL Czgmym00.0-15.0UnSCCI Hospital LimaComment on above:Performed By: #### [id number] ####[facility] ([facility])[address] [place] [address]KRK (RBC) [Entitic mass]29.5 omVsqztk34.0-33.0UnSCCI Hospital [facility] Comment on above:Performed By: #### [id number] ####[facility] ([facility])[address] [place] [address]LXV (RBC) [Entitic vol]93.4 zNDwbsxi91.0-98.0 [facility] HospitalComment on above:Performed By: #### [id number] ####[facility] ([facility])[address] [place] [address]VSYFMEIFE (10*3/UL) IN BLOOD AUTOMATED XAQQD333 10*3/bUXbsgtn527-552IwdmvrdeolSCCI Hospital LimaComment on above:Performed By: #### [id number] ####[facility] ([facility])[address] [place] [address]YWD (Bld) [#/Vol]4.24 10*6/uLNormal 3.80-5.00UnSCCI Hospital LimaComment on above:Performed By: #### [id number] ####[facility] ([facility])[address] [place] [address]TEC (Bld) [#/Vol]10.20 10*3/uLNormal4.00-10.60UnSCCI Hospital LimaComment on above:Performed By: #### [id number] ####[facility] ([facility])[address] [place] [address]OQNVJPLts 92-67-0949SSHCOHQWrjxoqMjvdscdlmk of [place] Medical CenterCT ABDOMEN PELVIS W IV CONTRASTon 12-99-8182HRD ABDOMEN PELVIS W IV CONTRASTNormalUniversity [facility] Clinic [facility]id HospitalCTA CHEST W IV CONTRASTon 29-18-2074ZFU CHEST W IV CONTRASTNormalUniversTrinity Health System East CampusHIGH SENSITIVITY TROPONIN Ion 63-43-5038YH TROPONIN I (NG/L)18 ng/LHigh<15UnSCCI Hospital LimaComment on above:Performed By: #### [id number] ####[facility] ([facility])[address] [place] [address]JBgn 60-14-3206NBQebffc [facility] HospitalLACTIC ACID WITH 4 HOUR REFLEXon 08-26-2024 LACTATE (MMOL/L) IN SER/PLAS0.8 mmol/LNormal0.5-2.2UnSCCI Hospital LimaComment on above:Performed By: #### [id number] ####[facility] ([facility])[address] [place] [address]TKUVRXFYSdv 28-23-6104Ludoronql [Mass/Vol]2.0 mg/dLNormal1.9-2.7UnSCCI Hospital LimaComment on above:Performed By: #### [id number] ####[facility] ([facility])[address], [place] [address]MFDTMAEKwl 66-37-3500LPPSORAZQddgzj was called to Milagro MELGAR. Questions answered. No further issues or concerns. Electrical Electronics Engineer also called and updated the Deroy on pt room number the night filler nurse and current status of the pt. He verbalized understanding [facility] HospitalNURSNOTEPREOPERATIVE DOPPLERS BOTH PT AND DP MARKED AND DOPPLERABLE IN BILATERAL FEET.[facility] HospitalNURSNOTEPt was given call light and family brought to bedside. RN called anesthesia about high bp will be around soon.[facility] NURSNOTEPt stated her knew the meds she took, rn spoke to who was unsure about when the last time she took some of her meds was. Knows she didn't take any today and hasn't had the blood thinner in 2 days.[facility] HospitalNURSNOTEPCT took pt to restroom then wheeled her to bay 5. Pt was instructed to remove all belongings and put gown on.NormalUnSCCI Hospital LimaOPNOTEon 88-46-7430ZNEEANTnpkpzYcwwiwdmwt [facility] HospitalPOCT GLUCOSE METER UNSOLICITED RESULTSon 06-51-0474Yrjkxrx [Mass/Vol]96 mg/dKDljmas55-992YirxlhqzjtSCCI Hospital LimaComment on above:Order Comment: Waived Testing in the ED is performed under the ED CLIA certificate #[id number].Result Comment: laurita Performed By: #### [id number] ####[facility] (BEAKER)[address] [place], [place] [address]MOQJACU-KJFxu 35-81-8823YWS IN PPP BY COAGULATION ASSAY1.01 Normal0.90-1.10UnSCCI Hospital LimaComment on above:Result Comment: [facility] RECOMMENDED INR FOR WARFARIN THERAPY CONDITION INRPROPHYLAXIS OF VENOUS THROMBOSIS 2-3(HIGH-RISK SURGERY)TREATMENT OF VENOUS THROMBOSIS 2-3TREATMENT OF PULMONARY EMBOLISM 2-3PREVENTION OF SYSTEMIC EMBOLISM: 2-3 ACUTE MYOCARDIAL INFARCTION TISSUE HEART VALVES VALVULAR HEART DISEASE ATRIAL FIBRILLATION RECURRENT SYSTEMIC EMBOLISMMECHANICAL HEART VALVE 2.5-3.5 FROM: ORAL ANTICOAGULANTS. MECHANISM OF ACTION, CLINICAL EFFECTIVENESS, AND OPTIMAL THERAPE UTIC RANGE. CHEST 1995;108:231S-246S.Performed By: #### [id number] ####[facility] ([facility])[address] [place], [place] [address]DBBPRKUDETI TIME (PT) IN PPP BY COAGULATION ASSAY13.3 SkuvlfzRpdjtk61.3-14.8UnSCCI Hospital LimaComment on above:Performed By: #### [id number] ####[facility] ([facility])[address] [place], [place] [address]JRNW AND SCREENon 44-18-1703UC SCREEN NegativeNoalUniSalem City HospitalComment on above:Performed By: #### [id number] ####[facility] BLOOD BANK,ABO group Nom (Bld)ONormalUnSCCI Hospital LimaComment on above:Performed By: #### [id number] ####[facility],RH TYPE IN BLOODPositiveNormalUniSalem City HospitalComment on above: Performed By: #### [id number] ####[facility],Orders Onlyon 06-35-9957Szdfnp [id number] Shayy Maynard 1945 F Date Provider Department Center 08/23/2024 BRIANNA DON [facility] No family history on fileNormalUniversmercy memorial hospital of [facility] Medical CenterOrders Onlyon 01-36-9812Yqqymj [id number] Shayy Maynard 1945 F Date Provider Department Center 08/18/2024 FORREST BOONE HVCVASENDO [place] [facility] No family history on fileNormalUniversity of Hereford Regional Medical CenterUrine Culture on 06-32-8201Clcsgins identified Cx Nom (U)<9,000 colonies/ml mixed bacterial skin contaminants 2 Days PERFORMED BY: [facility] [address] [place] [address] PATHOLOGIST AUDIOVISUAL AIDS TECHNICIAN ISAI DASH M.D.[facility] Physician GroupComment on above: Performed By: #### CUU #### [facility] [address] [id number] VZN78jd 05-31-128522Uprxzg and left a message for patient to call the office to scheduleNormalUniversity of [facility] Center Documentationon [id number] [place],Shayy A 1945 F Date Provider Department Center 08/05/2024 [id number]-SBLFZNZJAIME DOSHI HVCVASENDO [place] [facility] No family history on fileNormalUniversity of Hereford Regional Medical CenterFollow-Upon 52-40-3944Zcyiyk-UpNormalUniversity of [facility]ref[facility] Regional Medical CenterOrders Onlyon 77-71-8958Gcmwin [id number] [place],Shayy A 1945 F Date Provider Department Center 08/02/2024 928-VIKTOR RUCKER CARD [facility] No family history on fileNormalUniversity of Hereford Regional Medical CenterOrders Onlyon 87-08-4274Awjjal [id number] [place],Shayy A 1945 F Date Provider Department Center 07/27/2024 H0781-MERSWONH, HISTORICAL CARD [facility] No family history on fileNormalUniversity of Bay[facility] White Medical Center – UptownTon 97-67-3266HCR [Catalytic activity/Vol]10 U/LNormal7-52UnSCCI Hospital LimaComment on above:Performed By: #### [id number] ####[facility] HOSPITAL LAB (BEAKER)[address] [place], [place] [address]XSOpn 54-14-4809RDJ [Catalytic activity/Vol]14 U/BFnfzag01-59OwobztsxjgSCCI Hospital LimaComment on above:Performed By: #### [id number] ####[facility] ([facility])[address] [place] [address]QVAXVSDCRY, SERUMon 68-68-5200Czhcjplzer [Mass/Vol]1.15 mg/dL Normal0.60-1.20UnSCCI Hospital LimaComment on above:Performed By: #### [id number] ####[facility] ([facility])[address] [place] [address] GLOMERULAR FILTRATION RATE ML/MIN/1.73 SQ M.PYZFXPWLZ73.9 mL/min/1.73m*2Low>60.0 [facility] HospitalComment on above:Result Comment: The [facility]???s estimated glomerular filtration rate (eG FR) [...] anyone group of individuals. Performed By: #### [id number] ####[facility] ([facility])[address] [place] [address]XUL ABDOMEN PELVIS W IV CONTRASTon 24-84-5144PTV ABDOMEN PELVIS W IV CONTRASTInvalid Interpretation CodeUnSCCI Hospital LimaLIPID PANELon 45-27-1238WMNB/HDL4.8 mg/dLNormalUniversTrinity Health System East CampusComment on above:Performed By: #### [id number] ####[facility] ([facility])[address] [place] [address]Snoicttjicx [Mass/Vol]217 mg/dLHigh 120-200UnSCCI Hospital LimaComment on above:Performed By: #### [id number] ####[facility] ([facility])[address] [place], [place] [address]Avpcxgixs [Mass/Vol]170 mg/dLHigh<150UnSCCI Hospital LimaComment on above: Result Comment: TRIGLYCERIDE REFERENCE RANGE:20 YEARS AND OLDER CARDIOVASCULAR RISKLESS THAN 150 mg/dL LOW TNME523 TO 199 mg/dL BORDERLINE EIVI351 mg/dL AND GREATER HIGH RISKPerformed By: #### [id number] ####[facility] ([facility])[address] [place], [place] [address]Aggdojmia [Mass/Vol]138 mg/dLNormal0-160UnSCCI Hospital LimaComment on above:Performed By: #### [id number] ####[facility] ([facility])[address] [place], [place] [address]Fudtnbzrx [Mass/Vol]45 mg/gHZunhop47-04BesadnyqyoSCCI Hospital LimaComment on above:Performed By: #### [id number] ####[facility] ([facility])[address] [place] [address] NON HDL CHOL. (LDL+VLDL)172NormalUniSalem City HospitalComment on above:Performed By: #### [id number] ####[facility] ([facility])[address] [place], [place] [address]PUQRO VLDL-C34 mg/dLNormal0-40UnSCCI Hospital LimaComment on above:Performed By: #### [id number] ####[facility] ([facility])[address] [place], [place] [address]Otbnz [id number] Shayy Maynard 1945 F Date Provider Department Center 07/22/2024 2245-[facility] OPD LAB RESOURCE [facility] OPD [facility] C No family history on fileNormalUniversTrinity Health System East Campus36on [id number] message for pt to return call to schedule [address] Whitten.NormalUnSCCI Hospital Lima37on [id number] call radiology at [phone] to schedule testing (CTA abdomen and pelvis) to be done before your next appointmentNormalUniversity [facility] Clinic Euclid HospitalFollow-Upon [phone]-UpNormalUniversity [facility] Clinic Euclid HospitalBASIC METABOLIC PANELon [phone] gap [Moles/Vol]14 mmol/LNormal7-20 [facility] HospitalComment on above:Performed By: #### [id number] ####[facility] ([facility])[address] [place], [place] [address]Ykfyoyp [Mass/Vol]9.1 mg/dLNormal8.6-10.3UnSCCI Hospital LimaComment on above:Performed By: #### [id number] ####[facility] ([facility])[address] [place], [place] [address]Utxvltsf [Moles/Vol]105 mmol/ORvbkph38-496IquanhbehnSCCI Hospital LimaComment on above:Performed By: #### [id number] ####[facility] ([facility])[address] [place], [place] [address]FR7 [Moles/Vol]27 mmol/LNormal 21-31UnSCCI Hospital LimaComment on above:Performed By: #### [id number] ####[facility] ([facility])[address] [place], [place] [address]Fqhzirtrrc [Mass/Vol]1.32 mg/dLHigh0.60-1.20UnSCCI Hospital LimaComment on above:Performed By: #### [id number] ####[facility] ([facility])[address] [place], [place] [address]JZQYTXZBNM FILTRATION RATE ML/MIN/1.73 SQ M.CHEPJBMEN21.8 mL/min/1.73m*2Low>60.0UnSCCI Hospital LimaComment on above:Result Comment: [facility]???s estimated glomerular filtration rate (eGFR) will [...] anyone group of individuals.Performed By: #### [id number] ####[facility] ([facility])[address] [place], [place] [address]Mwoklap [Mass/Vol]94 mg/yHIdyiuy40-587MnezjslrtqSCCI Hospital LimaComment on above:Performed By: #### [id number] ####[facility] ([facility] CENTER)[address] [place], [place] [address]Whgfzcodd [Moles/Vol]3.8 mmol/LNormal3.5-5.1UnSCCI Hospital LimaComment on above:Performed By: #### [id number] ####[facility] ([facility])[address] [place] [address] Sodium [Moles/Vol]142 mmol/YEhyfgq649-862DyzadjkulkSCCI Hospital Lima Comment on above:Performed By: #### [id number] ####[facility] ([facility])[address] [place], [place] [address]Mfgk nitrogen [Mass/Vol]28 mg/dLHigh7-25UnSCCI Hospital LimaComment on above:Performed By: #### [id number] ####[facility] ([facility])[address], [place] [address]UKSD NITROGEN/CREATININE (MASS RATIO) IN SER/PLAS21.2NormalUnSCCI Hospital LimaComment on above:Performed By: #### [id number] ####[facility] ([facility])[address], [place] [address]HQHox 98-25-8699Kpodxaitfzv distribution width (RBC) [Ratio] 16.2 %High11.5-15.0UnSCCI Hospital LimaComment on above:Performed By: #### [id number] ####[facility] ([facility])[address], [place] [address]TFFKZWWRHWJ MEAN CORPUSCULAR HEMOGLOBIN CONCENTRATION (G/DL) BY AUTOMATED 30.9 g/dLLow32.0-35.0UnSCCI Hospital LimaComment on above: Performed By: #### [id number] ####[facility] ([facility])[address] [place] [address]Uhnvlpvbed (Bld) [Volume fraction]34.3 %Low36.0-45.0 [facility] [place] HospitalComment on above:Performed By: #### [id number] ####[facility] ([facility])[address] [place] [address]Ynratrdjdy (Bld) [Mass/Vol]10.6 g/dLLow12.0-15.0UnSCCI Hospital LimaComment on above:Performed By: #### [id number] ####[facility] ([facility])[address] [place] [address]HCL (RBC) [Entitic mass]28.4 sfIavoly32.0-33.0UnSCCI Hospital LimaComment on above:Performed By: #### [id number] ####[facility] ([facility])[address] [place] [address]ACV (RBC) [Entitic vol] 92.0 tDJkehca37.0-98.0UnSCCI Hospital LimaComment on above: Performed By: #### [id number] ####[facility] ([facility])[address] [place] [address]WPGGHUPMS (10*3/UL) IN BLOOD AUTOMATED [id number] 10*3/uLNormal 150-400UnSCCI Hospital LimaComment on above:Performed By: #### [id number] ####[facility] ([facility])[address] [place] [address]ZUB (Bld) [#/Vol]3.73 10*6/uLLow3.80-5.00UnSCCI Hospital LimaComment on above:Performed By: #### [id number] ####[facility] ([facility])[address] [place] [address]ETF (Bld) [#/Vol]8.95 10*3/uLNormal4.00-10.60UnSCCI Hospital LimaComment on above:Performed By: #### [id number] ####[facility] ([facility])[address] VAZQUEZENCOMPASS HEALTHUs[place], [place] [address]RWOERWQMYE, URINE, RANDOM on 25-32-5497Guazwpbfxe (U) [Mass/Vol]115.0 mg/oHQotftx68-946ZxctwcqqftSCCI Hospital LimaComment on above:Performed By: #### [id number] ####[facility] ([facility])[address] [place], [place] [address]Nifxpbxdi By: #### [id number] ####[facility] ([facility])[address] GEORGEENCOMPASS HEALTHUsmanHOU[place], [place] [address]Qoziob-Npbu 49-98-7325Rukopb-UpNormalUniversTrinity Health System East CampusLabon 26-89-8007Ebw [id number] Shayy Maynard 1945 F Date Provider Department [place] 05/11/20242241-[facility]3] LAB RESOURCE [facility]3] LAB Comprehensiv No family history on fileNoNovant Health Presbyterian Medical CenterniSalem City HospitalMICROALBUMIN, URINE, RANDOMon 25-14-5298Nozudgl DL <= 20 mg/L (U) [Mass/Vol]1.8 mg/dLNormal [facility] [place] HospitalComment on above:Performed By: #### [id number] ####[facility] ([facility])[address] [place] [address] MICROALBUMIN/CREATININE (MG/G) IN URINE15.7 mg/g CreatNormal0.0-30.0UnSCCI Hospital LimaComment on above:Performed By: #### [id number] ####[facility] ([facility])[address] [place], [place] [address]DWCTDEY, URINE, RANDOMon 57-51-5797Aimcdpt (U) [Mass/Vol]30.2 mg/dLDuke HealthniSalem City HospitalComment on above:Result Comment: There are no established reference values for random urine specimens.Performed By: #### [id number] ####[facility] ([facility])[address], [place] [address]XYUNLGKBMSkz 92-92-7212LOLKWNGOG, TOTAL PRESENCE IN URINENegativeNormiaNegativeProMedica [place] Hospital Comment on above:Performed By: #### [id number] ####[facility] ([facility])[address], [place] [address]Rguserm (U)ClearNormalClearUnSCCI Hospital LimaComment on above:Performed By: #### [id number] ####[facility] ([facility])[address], [place] [address]Xlznh (U)Light-YellowNormalColorless, Yellow, Light-YellowUnSCCI Hospital LimaComment on above: Performed By: #### [id number] ####[facility] ([facility])[address], [place] [address]SAGCLTO (MG/DL) IN URINENormalNormalNormalUniSalem City HospitalComment on above:Performed By: #### [id number] ####[facility] ([facility])[address], [place] [address]NAGTXXZAXW PRESENCE IN URINENegativeNormiaNegMartin Memorial HospitalComment on above: Performed By: #### [id number] ####[facility] LAB ([facility])[address], [place] [address]Jsqhlvt Ql (U)NegativeNormalNegativeProMedica [place] HospitalComment on above:Performed By: #### [id number] ####[facility] ([facility])[address], [place] [address]HUMNQFATQ ESTERASE PRESENCE IN URINE BY TEST STRIPSmallAbnormalNegMartin Memorial HospitalComment on above:Performed By: #### [id number] ####[facility] ([facility])[address], [place] [address]ENHMCZA PRESENCE IN URINENegativeNormalNegativeProMedica [place] HospitalComment on above:Performed By: #### [id number] ####[facility] LAB ([facility])[address] [place] [address]jA (U)5.5 [pH]Normal 5.0-8.0[facility] [place] HospitalComment on above:Performed By: #### [id number] ####[facility] LAB ([facility])[address] [place] [address]Ebieahr (U) [Mass/Vol]NegativeNormalNegativeUnSCCI Hospital LimaComment on above:Performed By: #### [id number] ####[facility] ([facility])[address] [place] [address]Jewydxcp gravity (U) [Rel density]1.148Rhrhxj8.010-1.030 [facility] [place] HospitalComment on above:Performed By: #### [id number] ####[facility] ([facility])[address] [place], [place] [address]EJBIZNMPCVHI (MG/DL) IN URINENormalNormalNormalUniversTrinity Health System East CampusComment on above:Performed By: #### [id number] ####[facility] ([facility])[address] [place], [place] [address]TKOGIZXCUN MICROSCOPICon 39-20-4523MZD (#/HPF) IN URINE SEDIMENT0-2NormalNone Seen, 0-2UnSCCI Hospital LimaComment on above:Performed By: #### [id number] ####[facility] LAB ([facility])[address] [place], [place] [address]NTEYGYZT EPITHELIAL CELLS (#/LPF) IN URINE SEDIMENTFewNormal None Seen, Occasional, FewUnSCCI Hospital LimaComment on above: Performed By: #### [id number] ####[facility] LAB ([facility])[address] [place], [place] [address]COZ (LEUKOCYTE) (#/HPF) IN URINE SEDIMENT3-5AbnormalNone Seen, 0-2UnSCCI Hospital LimaComment on above:Performed By: #### [id number] ####[facility] ([facility])[address] [place], [place] [address]-Tjmncv call radiology at [phone] to schedule ultrasound testing. Can be scheduled same day as follow up appointmentsNormalUniversTrinity Health System East CampusFollow-Upon 72-63-4569Rtlquz-UpNormalUniversity [facility] Follow-Upon 83-72-5305Nbruhz-UpNormalUniversity [facility]36on 80-61-136020RxlyacJcjibmhnjv [facility] HospitalOrders Onlyon 02-19-2024 Orders [id number] Shayy Maynard 1945 F Date Provider Department Center 02/19/2024 JF MOTTA [facility] No family history on fileNormalUniversTrinity Health System East CampusDocumentation on 61-96-2300FeviapsmzybrbIcksrdJjghhhkwkk of [place] [facility] Jmbwic05po 67-17-988007SscgjtHvxplgojju of [place] [facility] Utinlv55NzndwoKfeilnwbolTrinity Health System East CampusBASIC METABOLIC PANELon 05-37-1311Qxcnx gap [Moles/Vol]9 mmol/LNormal7-20UnSCCI Hospital LimaComment on above:Performed By: #### [id number] ####[facility] LAB (BEAKER)[address] [facility] [place] [address] Calcium [Mass/Vol]8.3 mg/dLLow8.6-10.3UnSCCI Hospital LimaComment on above:Performed By: #### [id number] ####[facility] ([facility])[address] [place], [place] [address]Edozullf [Moles/Vol]107 mmol/OWezfvy53-567UprnxglxziSCCI Hospital LimaComment on above:Performed By: #### [id number] ####[facility] (BE[facility]ER)[address] [place], [place] [address]ZK9 [Moles/Vol]29 mmol/LNormal 21-31UnSCCI Hospital LimaComment on above:Performed By: #### [id number] ####[facility] LAB (BE[facility]ER)[address] [place] [address]Pzfdjbminq [Mass/Vol]1.70 mg/dLHigh0.60-1.20UnSCCI Hospital LimaComment on above:Performed By: #### [id number] ####[facility] LAB ([facility])[address] [place] [address]ZMMNBZDPDM FILTRATION RATE ML/MIN/1.73 SQ M.DBSPBBWLX06.1 mL/min/1.73m*2Low>60.0UnSCCI Hospital LimaComment on above:Result Comment: The [facility]???s estimated glomerular filtration rate (eGFR) will [...] anyone group of individuals.Performed By: #### [id number] ####[facility] ([facility])[address] [place] [address]Czyjkkh [Mass/Vol]85 mg/kQJdzucg55-482RkcuyqzuafSCCI Hospital LimaComment on above:Performed By: #### [id number] ####[facility] ([facility])[address] [place] [address]Shbmegxxx [Moles/Vol]4.6 mmol/LNormal3.5-5.1UnSCCI Hospital LimaComment on above:Performed By: #### [id number] ####[facility] ([facility])[address] [place] [address] Sodium [Moles/Vol]140 mmol/TOgzbiy926-891DaqivmaxxvSCCI Hospital Lima Comment on above:Performed By: #### [id number] ####[facility] ([facility])[address] [place], [place] [address]Rkbj nitrogen [Mass/Vol]21 mg/dLNormal7-25 [facility] [place] HospitalComment on above:Performed By: #### [id number] ####[facility] ([facility])[address] [place], [place] [address]LZYI NITROGEN/CREATININE (MASS RATIO) IN SER/PLAS12.4NormalUniversTrinity Health System East CampusComment on above:Performed By: #### [id number] ####[facility] LAB ([facility])[address] [place] [address]FMZ WITH AUTO DIFFERENTIALon 87-71-0442Zoywozdingx distribution width (RBC) [Ratio]16.7 %High11.5-15.0 [facility] [place] HospitalComment on above:Performed By: #### [id number] ####[facility] ([facility])[address] [place], [place] [address]ZBYBEHLRTWM MEAN CORPUSCULAR HEMOGLOBIN CONCENTRATION (G/DL) BY VULFTKMVN90.1 g/dLLow32.0-35.0 [facility] [place] HospitalComment on above:Performed By: #### [id number] ####[facility] ([facility])[address] [place], [place] [address]Gqyteoikvq (Bld) [Volume fraction]27.9 %Low36.0-48.0UnSCCI Hospital LimaComment on above:Performed By: #### [id number] ####[facility] ([facility])[address] [place], [place] [address]Akvitzllcj (Bld) [Mass/Vol]8.4 g/dLLow12.0-15.0UnSCCI Hospital LimaComment on above:Performed By: #### [id number] ####[facility] ([facility])[address] [place], [place] [address]HKP (RBC) [Entitic mass] 27.5 xhMgwcqt09.0-33.0UnSCCI Hospital LimaComment on above: Performed By: #### [id number] ####[facility] LAB (BEAKER)[address] [place], [place] [address]OBU (RBC) [Entitic vol]91.5 sPMyawac89.0-98.0UnSCCI Hospital LimaComment on above:Performed By: #### [id number] ####[facility] ([facility])[address] [place] [address]WYOC (PER 100 WBCS) BY AUTOMATED COUNT0.0 %Unophu8BiykvgswwgSCCI Hospital LimaComment on above: Performed By: #### [id number] ####[facility] ([facility])[address] [place] [address]DVYFCKGPD (10*3/UL) IN BLOOD AUTOMATED [id number] 10*3/uLNormal 150-400UnSCCI Hospital LimaComment on above:Performed By: #### [id number] ####[facility] ([facility])[address] [place] [address]CPD (Bld) [#/Vol]3.05 10*6/uLLow3.80-5.00UnSCCI Hospital LimaComment on above:Performed By: #### [id number] ####[facility] ([facility])[address] [place] [address]XSP (Bld) [#/Vol]5.28 10*3/uLNormal4.00-10.60UnSCCI Hospital LimaComment on above:Performed By: #### [id number] ####[facility] ([facility])[address] [place] [address]JQvb 71-83-4779XEUcpdqw [facility] HospitalMAGNESIUMon 18-70-3898Uqlvrtszj [Mass/Vol]1.9 mg/dLNormal1.9-2.7UnSCCI Hospital LimaComment on above:Performed By: #### [id number] ####[facility] ([facility])[address] [place] [address]QDNVSF DIFFERENTIALon 72-25-5985RSYARHSRI (10*3/UL) IN BLOOD BY CALCULATION 0.00 10*3/uLNormal0.00-0.20UnSCCI Hospital LimaComment on above: Performed By: #### [id number] ####[facility] ([facility])[address] [place], [place] [address]EMCPAYEFE/100 LEUKOCYTES IN BLOOD BY AUTOMATED COUNT0.0 % Normal0.0-1.0UnSCCI Hospital LimaComment on above:Performed By: #### [id number] ####[facility] ([facility])[address] [place] [address] EOSINOPHILS (10*3/UL) IN BLOOD BY CALCULATION0.21 10*3/uLNormal0.00-0.50 [facility] [place] HospitalComment on above:Performed By: #### [id number] ####[facility] ([facility])[address] [place], [place] [address]RVKUGBKYBYC/100 LEUKOCYTES IN BLOOD BY AUTOMATED COUNT4.0 %Normal0.0-6.0UnSCCI Hospital LimaComment on above:Performed By: #### [id number] ####[facility] ([facility])[address] [place], [place] [address]FVMWZBDYXBD (10*3/UL) IN BLOOD BY CALCULATION0.81 10*3/uLLow1.20-4.00UnSCCI Hospital LimaComment on above:Performed By: #### [id number] ####[facility] ([facility])[address] [place], [place] [address]NVXYEXXLTGP/100 LEUKOCYTES IN BLOOD BY AUTOMATED COUNT15.4 % Low20.0-45.0UnSCCI Hospital LimaComment on above:Performed By: #### [id number] ####[facility] ([facility])[address] [place] [address] METAMYELOCYTES (10*3/UL) IN BLOOD BY CALCULATION0.04 10*3/uLHigh0.00UnSCCI Hospital LimaComment on above:Performed By: #### [id number] ####[facility] ([facility])[address] [place], [place] [address]FGVVFJUNZLCRAF/100 LEUKOCYTES IN BLOOD CELLAVISION0.7 %High0.0-0.0UnSCCI Hospital LimaComment on above:Performed By: #### [id number] ####[facility] ([facility])[address] [place], [place] [address]CFTJHQSTT (10*3/UL) IN BLOOD BY CALCUATION0.25 10*3/uLNormal0.10-1.00UnSCCI Hospital LimaComment on above:Performed By: #### [id number] ####[facility] ([facility])[address] [place], [place] [address]ONKQOHEID/100 LEUKOCYTES IN BLOOD BY AUTOMATED COUNT4.7 %Low 5.0-12.0UnSCCI Hospital LimaComment on above:Performed By: #### [id number] ####[facility] ([facility])[address] [place] [address] MYELOCYTES (10*3/UL) IN BLOOD BY CALCULATION0.04 10*3/uLHigh0.00UnSCCI Hospital LimaComment on above:Performed By: #### [id number] ####[facility] ([facility])[address] [place], [place] [address]PNGKTPQBPY/100 LEUKOCYTES IN BLOOD CELLAVISION0.7 %High0.0-0.0UnSCCI Hospital LimaComment on above:Performed By: #### [id number] ####[facility] ([facility])[address] [place], [place] [address]LXXGUGVDBEQ (10*3/UL) IN BLOOD BY CALCULATION3.9 10*3/uL Normal1.6-7.6UnSCCI Hospital LimaComment on above:Performed By: #### [id number] ####[facility] ([facility])[address] [place] [address] NEUTROPHILS/100 LEUKOCYTES IN BLOOD BY AUTOMATED COUNT74.5 %High40.0-72.0 [facility] HospitalComment on above:Performed By: #### [id number] ####[facility] ([facility])[address] [place], [place] [address]QLNPGO CELLS/100 LEUKOCYTES IN BLOOD0 %Jolbod2YzvmcymnzySCCI Hospital LimaComment on above:Performed By: #### [id number] ####[facility] ([facility])[address] [place], [place] [address]OWMIYRPZX GIANT PRESENCE IN BLOOD BY LIGHT MICROSCOPYPresent NormalUnSCCI Hospital LimaComment on above:Performed By: #### [id number] ####[facility] ([facility])[address] [place], [place] [address]SNGSBJ CELLS/100 LEUKOCYTES IN BLOOD CELLAVISIONPresentNormalUniversTrinity Health System East CampusComment on above:Performed By: #### [id number] ####[facility] ([facility])[address] [place], [place] [address]COQYROF LYMPHOCYTES (10*3/UL) IN BLOOD BY CALCULATION0.00 10*3/uLNormal0.00UnSCCI Hospital LimaComment on above:Performed By: #### [id number] ####[facility] ([facility])[address] [place], [place] [address]CVTBAPO LYMPHOCYTES/100 LEUKOCYTES IN BLOOD CELLAVISION0.0 % Normal0.0-0.0UnSCCI Hospital LimaComment on above:Performed By: #### [id number] ####[facility] ([facility])[address] [place] [address] NURSNOTEon 30-75-0002IZZNWWCEMiigqsDvucmnophf of [place] Medical CenterPOCT GLUCOSE METER UNSOLICITED RESULTSon 45-90-9480Lwdcweh [Mass/Vol]103 mg/dLNormal 70-105UnSCCI Hospital LimaComment on above:Order Comment: Waived Testing in the ED is performed under the ED CLIA certificate #[id number].Result Comment: [email or web address] By: #### [id number] ####[facility] ([facility])[address] [place], [place] [address]mm 31-02-762341ZzipoaIlijamhuyi of [place] [facility] Mxnxlg58FbdklgBuhxcsjjwvTrinity Health System East Campus30The patient is Moderately Stable - Low risk of patient condition declining or worsening The patient's goals for the shift include Comfort The clinical goals for the shift include VSS, safetyNormalUniversity [facility]30NormalUniversity [facility] Clinic [facility]uclid HospitalBASIC METABOLIC PANELon 88-34-9862Hzwdm gap [Moles/Vol]14 mmol/LNormal7-20UnSCCI Hospital LimaComment on above:Performed By: #### [id number] ####[facility] ([facility])[address] [place], [place] [address]Yagczhv [Mass/Vol]8.0 mg/dLLow8.6-10.3 [facility] HospitalComment on above:Performed By: #### [id number] ####[facility] ([facility])[address] [place], [place] [address]Cwxjqlcp [Moles/Vol]105 mmol/LObtiae56-254JhcsljtltcSCCI Hospital LimaComment on above:Performed By: #### [id number] ####[facility] ([facility])[address] [place], [place] [address]VC[address] [Moles/Vol]26 mmol/RNlolms82-72GuitvynchmSCCI Hospital LimaComment on above:Performed By: #### [id number] ####[facility] ([facility])[address] [place], [place] [address]Bchtvxcsba [Mass/Vol]1.99 mg/dLHigh 0.60-1.20UnSCCI Hospital LimaComment on above:Performed By: #### [id number] ####[facility] ([facility])[address] [place], [place] [address]WJNXQKEIHK FILTRATION RATE ML/MIN/1.73 SQ M.PSELEWHSF57.9 mL/min/1.73m*2Low>60.0UnSCCI Hospital LimaComment on above:Result Comment: [facility]???s estimated glomerular filtration rate (eGFR) will [...] group of individuals. Performed By: #### [id number] ####[facility] ([facility])[address] [place], [place] [address]Dabrpfk [Mass/Vol]80 mg/tEUfypbh30-294RumozgnmvySCCI Hospital LimaComment on above:Performed By: #### [id number] ####[facility] ([facility])[address] [place], [place] [address]Vwpdbxeyl [Moles/Vol]4.5 mmol/LNormal 3.5-5.1UnSCCI Hospital LimaComment on above:Performed By: #### [id number] ####[facility] ([facility])[address] [place], [place] [address]Gvjfpu [Moles/Vol]140 mmol/MLvmwfi931-082AlzcgsednpSCCI Hospital LimaComment on above:Performed By: #### [id number] ####[facility] ([facility])[address] [place], [place] [address]Zjzr nitrogen [Mass/Vol]28 mg/dLHigh7-25UnSCCI Hospital LimaComment on above:Performed By: #### [id number] ####[facility] ([facility])[address] [place], [place] [address]BTTJ NITROGEN/CREATININE (MASS RATIO) IN SER/PLAS14.1NormalUnSCCI Hospital LimaComment on above: Performed By: #### [id number] ####[facility] ([facility])[address] [place], [place] [address]NDE WITH AUTO DIFFERENTIALon 83-84-8432Qnccpepzcxf distribution width (RBC) [Ratio]17.1 %High11.5-15.0UnSCCI Hospital LimaComment on above:Performed By: #### [id number] ####[facility] ([facility])[address] [place], [place] [address]CTLVQDJLVAW MEAN CORPUSCULAR HEMOGLOBIN CONCENTRATION (G/DL) BY RDHFVNGIL65.6 g/dLLow32.0-35.0UnSCCI Hospital LimaComment on above:Performed By: #### [id number] ####[facility] ([facility])[address] [place] [address]Hklzflysgn (Bld) [Volume fraction]29.0 %Low36.0-48.0 [facility] HospitalComment on above:Performed By: #### [id number] ####[facility] ([facility])[address] [place] [address]Ikwiylixrr (Bld) [Mass/Vol]8.3 g/dLLow12.0-15.0UnSCCI Hospital LimaComment on above:Performed By: #### [id number] ####[facility] ([facility])[address] [place] [address]TGYHJCFQ PLATELET FRACTION %1.5 %Normal0.8-6.3UnSCCI Hospital LimaComment on above:Performed By: #### [id number] ####[facility] ([facility])[address] [place] [address]JFQ (RBC) [Entitic mass] 27.8 ugOhzyql38.0-33.0UnSCCI Hospital LimaComment on above: Performed By: #### [id number] ####[facility] ([facility])[address] [place] [address]ELL (RBC) [Entitic vol]97.0 tMAyvlcv15.0-98.0UnSCCI Hospital LimaComment on above:Performed By: #### [id number] ####[facility] ([facility])[address] [place] [address]MCTU (PER 100 WBCS) BY AUTOMATED COUNT0.0 %Ymyadc5RdrfauqqwuSCCI Hospital LimaComment on above: Performed By: #### [id number] ####[facility] ([facility])[address] [place] [address]IRQVDQDFE (10*3/UL) IN BLOOD AUTOMATED [id number] 10*3/uLNormal 150-400UnSCCI Hospital LimaComment on above:Performed By: #### [id number] ####[facility] ([facility])[address] [place] [address]QCF (Bld) [#/Vol]2.99 10*6/uLLow3.80-5.00UnSCCI Hospital LimaComment on above:Performed By: #### [id number] ####[facility] ([facility])[address] [place] [address]LPX (Bld) [#/Vol]7.00 10*3/uLNormal4.00-10.60UnSCCI Hospital LimaComment on above:Performed By: #### [id number] ####[facility] ([facility])[address] [place] [address]CREYDNZQSda 02-11-2024 Magnesium [Mass/Vol]2.2 mg/dLNormal1.9-2.7UnSCCI Hospital [place] Comment on above:Performed By: #### [id number] ####[facility] ([facility])[address] [place] [address]EHEOHO DIFFERENTIALon 52-97-7766XFMXCSTPFUXV PRESENCE IN BLOOD BY LIGHT MICROSCOPYSlightNormalUniversTrinity Health System East CampusComment on above:Performed By: #### [id number] ####[facility] ([facility])[address] [place] [address]CJROFDWGC (10*3/UL) IN BLOOD BY CALCULATION0.07 10*3/uLNormal0.00-0.20UnSCCI Hospital LimaComment on above:Performed By: #### [id number] ####[facility] ([facility])[address] [place] [address]VPFZXGOLB/100 LEUKOCYTES IN BLOOD BY AUTOMATED COUNT1.0 %Normal0.0-1.0UnSCCI Hospital LimaComment on above: Performed By: #### [id number] ####[facility] ([facility])[address] [place] [address]ACCSXUZOWBC (10*3/UL) IN BLOOD BY CALCULATION0.27 10*3/uL Normal0.00-0.50UnSCCI Hospital LimaComment on above:Performed By: #### [id number] ####[facility] ([facility])[address] [place] [address] EOSINOPHILS/100 LEUKOCYTES IN BLOOD BY AUTOMATED COUNT3.9 %Normal0.0-6.0 [facility] HospitalComment on above:Performed By: #### [id number] ####[facility] ([facility])[address] [place], [place] [address]XQDTIPLP GRANULOCYTES (10*3/UL) IN BLOOD BY CALCULATION0.34 10*3/uLHigh0.00-0.20 [facility] HospitalComment on above:Performed By: #### [id number] ####[facility] ([facility])[address] [place], [place] [address]CXOEGVIW GRANULOCYTES/100 LEUKOCYTES IN BLOOD BY AUTOMATED COUNT4.9 %High0.0-1.0 [facility] HospitalComment on above:Performed By: #### [id number] ####[facility] ([facility])[address] [place], [place] [address]PTJNEAZWEZI (10*3/UL) IN BLOOD BY CALCULATION1.00 10*3/uLLow1.20-4.00[facility] HospitalComment on above:Performed By: #### [id number] ####[facility] ([facility])[address] [place], [place] [address]SXJQZGRERGQ/100 LEUKOCYTES IN BLOOD BY AUTOMATED COUNT14.3 %Low20.0-45.0UnSCCI Hospital LimaComment on above:Performed By: #### [id number] ####[facility] ([facility])[address] [place], [place] [address]ZHRTPDFIBP (PRESENCE) IN BLOOD BY LIGHT MICROSCOPYSlight NormalUnSCCI Hospital LimaComment on above:Performed By: #### [id number] ####[facility] ([facility])[address] [place] [address] MONOCYTES (10*3/UL) IN BLOOD BY CALCUATION0.68 10*3/uLNormal0.10-1.00UnSCCI Hospital LimaComment on above:Performed By: #### [id number] ####[facility] ([facility])[address] [place] [address]GZCFFASIQ/100 LEUKOCYTES IN BLOOD BY AUTOMATED COUNT9.7 %Normal5.0-12.0UnSCCI Hospital LimaComment on above:Performed By: #### [id number] ####[facility] ([facility])[address] [facility] [place] [address]DEFLUSZLZEZ (10*3/UL) IN BLOOD BY CALCULATION4.6 10*3/uLNormal1.6-7.6UnSCCI Hospital LimaComment on above:Performed By: #### [id number] ####[facility] ([facility])[address] [place] [address]WZPHEWJFPYQ/100 LEUKOCYTES IN BLOOD BY AUTOMATED COUNT66.2 % Jhkbie59.0-72.0UnSCCI Hospital LimaComment on above:Performed By: #### [id number] ####[facility] ([facility])[address] [facility] [place] [address] POIKILOCYTOSIS (PRESENCE) IN BLOOD BY LIGHT MICROSCOPYSlightNormalUniSalem City HospitalComment on above:Performed By: #### [id number] ####[facility] ([facility])[address] [facility] [place] [place] [address]LEBK GLUCOSE METER UNSOLICITED RESULTSon 20-87-2971Gkfgzzy [Mass/Vol]140 mg/oJNenj78-893QronfxbbdxSCCI Hospital LimaComment on above:Order Comment: Waived Testing in the ED is performed under the ED CLIA certificate #[id number].Result Comment: [email or web address] Performed By: #### [id number] ####[facility] ([facility])[address] [place], [place] [address]Rxuhkby [Mass/Vol]158 mg/uIYaox26-518BuuxaqnqsqSCCI Hospital LimaComment on above:Order Comment: Waived Testing in the ED is performed under the ED CLIA certificate #[id number].Result Comment: [email or web address] Performed By: #### [id number] ####[facility] ([facility])[address] [place], [place] [address]Hcmmupp [Mass/Vol]164 mg/lKPqlu55-228WgcuuuubzwSCCI Hospital LimaComment on above:Order Comment: Waived Testing in the ED is performed under the ED CLIA certificate #[id number].Result Comment: [email or web address] Performed By: #### [id number] ####[facility] ([facility])[address] [place], [place] [address]Zuykjpw [Mass/Vol]96 mg/aBGplbvt17-072QuhaohzutfSCCI Hospital LimaComment on above:Order Comment: Waived Testing in the ED is performed under the ED CLIA certificate #[id number].Result Comment: [email or web address] Performed By: #### [id number] ####[facility] ([facility])[address] [place], [place] [address]xv 15-25-858554JxuggnHixnlknwvc [facility]30 The patient is Moderately Stable - Low risk of patient condition declining or worsening The patient's goals for the shift include Comfort The clinical goals for the shift include VSS, safetyNormalUniversity of Hereford Regional Medical CenterYmcfer94TomzsrNydzsgikca [facility] HospitalBASIC METABOLIC PANELon 82-24-7585Ksidh gap [Moles/Vol]10 mmol/LNormal7-20UnSCCI Hospital LimaComment on above:Performed By: #### [id number] ####[facility] ([facility])[address] [place], [place] [address]Stpcmnb [Mass/Vol]8.0 mg/dLLow8.6-10.3 [facility] HospitalComment on above:Performed By: #### [id number] ####[facility] ([facility])[address] [place], [place] [address]Oyadwmjd [Moles/Vol]106 mmol/HRokbht62-419IpkbponmjaSCCI Hospital LimaComment on above:Performed By: #### [id number] ####[facility] ([facility])[address] [place], [place] [address]DZ6 [Moles/Vol]29 mmol/QSyxqay54-89RckkaaccfgSCCI Hospital LimaComment on above:Performed By: #### [id number] ####[facility] ([facility])[address] [place] [address]Efjhwewsrz [Mass/Vol]2.41 mg/dLHigh 0.60-1.20UnSCCI Hospital LimaComment on above:Performed By: #### [id number] ####[facility] ([facility])[address] [place] [address]MYEWDKQMJP FILTRATION RATE ML/MIN/1.73 SQ M.AYMFWGFZT89.8 mL/min/1.73m*2Low>60.0UnSCCI Hospital LimaComment on above:Result Comment: [facility]???s estimated glomerular filtration rate (eGFR) will [...] group of individuals. Performed By: #### [id number] ####[facility] ([facility])[address] [place] [place] [address]Otqglie [Mass/Vol]81 mg/fXVarftf61-046NxtzirdbudSCCI Hospital LimaComment on above:Performed By: #### [id number] ####[facility] ([facility])[address] [place] [address]Vfajziuqy [Moles/Vol]4.1 mmol/LNormal 3.5-5.1UnSCCI Hospital LimaComment on above:Performed By: #### [id number] ####[facility] ([facility])[address] [place] [address]Ivbbzn [Moles/Vol]141 mmol/GBqdlhp889-585NegbgmazbnSCCI Hospital LimaComment on above:Performed By: #### [id number] ####[facility] ([facility])[address] [place], [place] [address]Fmcy nitrogen [Mass/Vol]36 mg/dLHigh7-25UnSCCI Hospital LimaComment on above:Performed By: #### [id number] ####[facility] ([facility])[address] [place], [place] [address]FQQB NITROGEN/CREATININE (MASS RATIO) IN SER/PLAS14.9NormalUniversTrinity Health System East CampusComment on above: Performed By: #### [id number] ####[facility] ([facility])[address] [place] [address]ECX WITH AUTO DIFFERENTIALon 44-75-8440Msurhutmn (Bld) [#/Vol]0.05 10*3/uLNormal0.00-0.20UnSCCI Hospital LimaComment on above: Performed By: #### [id number] ####[facility] ([facility])[address] [place], [place] [address]Vhfneoqdc/100 WBC (Bld)0.7 %Normal0.0-1.0UnSCCI Hospital LimaComment on above:Performed By: #### [id number] ####[facility] ([facility])[address] [place], [place] [address]Pohbmcbjnog (Bld) [#/Vol]0.29 10*3/uL Normal0.00-0.50UnSCCI Hospital LimaComment on above:Performed By: #### [id number] ####[facility] ([facility])[address] [place] [address] Eosinophils/100 WBC (Bld)4.2 %Normal0.0-6.0UnSCCI Hospital [place] Comment on above:Performed By: #### [id number] ####[facility] ([facility])[address] [place], [place] [address]Srkkmiwgyiy distribution width (RBC) [Ratio]16.9 % High11.5-15.0UnSCCI Hospital LimaComment on above:Performed By: #### [id number] ####[facility] ([facility])[address] [place] [address] ERYTHROCYTE MEAN CORPUSCULAR HEMOGLOBIN CONCENTRATION (G/DL) BY CFMYQEWMY23.1 g/dLLow32.0-35.0UnSCCI Hospital LimaComment on above:Performed By: #### [id number] ####[facility] ([facility])[address] [place], [place] [address]Arfmifkwsk (Bld) [Volume fraction]28.6 %Low36.0-48.0UnSCCI Hospital LimaComment on above:Performed By: #### [id number] ####[facility] ([facility])[address] [place], [place] [address]Sztjxqjdti (Bld) [Mass/Vol]8.6 g/dLLow 12.0-15.0UnSCCI Hospital LimaComment on above:Performed By: #### [id number] ####[facility] ([facility])[address] [place], [place] [address]Vbriuunv granulocytes (Bld) [#/Vol]0.32 10*3/uLHigh0.00-0.20UnSCCI Hospital LimaComment on above:Performed By: #### [id number] ####[facility] ([facility]ER)[address] [place], [place] [address]Ndjkrotc granulocytes/100 WBC (Bld)4.6 %High0.0-1.0UnSCCI Hospital LimaComment on above:Performed By: #### [id number] ####[facility] ([facility])[address] [place] [address] Lymphocytes (Bld) [#/Vol]1.03 10*3/uLLow1.20-4.00UnSCCI Hospital LimaComment on above:Performed By: #### [id number] ####[facility] ([facility])[address] [place], [place] [address]Zjzpxcweuva/100 WBC (Bld)14.9 %Low 20.0-45.0University [facility]arcenas Medical CenterComment on above:Performed By: #### [id number] ####[facility] ([facility])[address] [place] [address]CFA (RBC) [Entitic mass]27.8 puRaoilm83.0-33.0UnSCCI Hospital [place] Comment on above:Performed By: #### [id number] ####[facility] ([facility])[address] [place], [place] [address]PRC (RBC) [Entitic vol]92.6 mPWixrfz24.0-98.0 [facility] HospitalComment on above:Performed By: #### [id number] ####[facility] ([facility])[address] [place], [place] [address]Gcgrggbwh (Bld) [#/Vol]0.59 10*3/uLNormal0.10-1.00UnSCCI Hospital LimaComment on above:Performed By: #### [id number] ####[facility] ([facility])[address] [place] [address]Dydrolpnf/100 WBC (Bld)8.5 %Normal5.0-12.0UnSCCI Hospital LimaComment on above:Performed By: #### [id number] ####[facility] ([facility])[address] [place], [place] [address]Hqdtywbfljf (Bld) [#/Vol] 4.63 10*3/uLNormal1.60-7.60UnSCCI Hospital LimaComment on above: Performed By: #### [id number] ####[facility] ([facility])[address] [place] [address]Jutizhihdlt/100 WBC (Bld)67.1 %Dyfvyq52.0-72.0UnSCCI Hospital LimaComment on above:Performed By: #### [id number] ####[facility] [place] [address]ZHHC (PER 100 WBCS) BY AUTOMATED COUNT0.0 %Uqwzry8VofaxgotpsSCCI Hospital LimaComment on above: Performed By: #### ####[facility] ([facility])[address] [place] [address]LKMVKWGOE (10*3/UL) IN BLOOD AUTOMATED [id number] 10*3/uLNormal 150-400UnSCCI Hospital LimaComment on above:Performed By: #### [id number] ####[facility] ([facility])[address] [place] [address]NAI (Bld) [#/Vol]3.09 10*6/uLLow3.80-5.00UnSCCI Hospital LimaComment on above:Performed By: #### [id number] ####[facility] ([facility])[address] [place] [address]OCZ (Bld) [#/Vol]6.91 10*3/uLNormal4.00-10.60UnSCCI Hospital LimaComment on above:Performed By: #### [id number] ####[facility] ([facility])[address] [place], [place] [address]AYGZKMVNHyx 02-10-2024 Magnesium [Mass/Vol]2.7 mg/dLNormal1.9-2.7[facility] Comment on above:Performed By: #### [id number] ####[facility] ([facility])[address] [place] [address]OFQK GLUCOSE METER UNSOLICITED RESULTSon 02-10-2024 Glucose [Mass/Vol]110 mg/aNTgcc48-226OhwbclqrjsSCCI Hospital LimaComment on above:Order Comment: Waived Testing in the ED is performed under the ED CLIA certificate #[id number].Result Comment: [id number] By: #### [id number] ####[facility] ([facility])[address] [place], [place] [address]Ipkxcpj [Mass/Vol]181 mg/eWKgmr94-230UdndoazypzSCCI Hospital LimaComment on above:Order Comment: Waived Testing in the ED is performed under the ED CLIA certificate #[id number].Result Comment: uravdod8Isoetjelt By: #### [id number] ####[facility] ([facility])[address] [place], [place] [address]Ekwvaww [Mass/Vol]136 mg/eHOppv03-731PrhszwlkmlSCCI Hospital LimaComment on above:Order Comment: Waived Testing in the ED is performed under the ED CLIA certificate #[id number].Result Comment: [id number] By: #### [id number] ####[facility] ([facility])[address] [place], [place] [address]Tryrjip [Mass/Vol]92 mg/iAPzitop99-450BwuvcpzikwSCCI Hospital LimaComment on above:Order Comment: Waived Testing in the ED is performed under the ED CLIA certificate #[id number].Result Comment: [id number] By: #### [id number] ####[facility] ([facility])[address] [place], [place] [address]Uoibkqg [Mass/Vol]99 mg/oQRiefwx69-966KyktbbvpvbSCCI Hospital LimaComment on above:Order Comment: Waived Testing in the ED is performed under the ED CLIA certificate #[id number].Result Comment: [id number] By: #### [id number] ####[facility] ([facility])[address] [place], [place] [address]17jj 02-09-2024 30NormalUniversity of Hereford Regional Medical CenterBgsfzn16AwgjcsThvnzjlyvy [facility]30NormalUniversity [facility] HospitalBASIC METABOLIC PANELon 57-10-9041Pqddk gap [Moles/Vol]10 mmol/LNormal7-20UnSCCI Hospital LimaComment on above:Performed By: #### [id number] ####[facility] ([facility])[address] [place], [place] [address]Ixbpchr [Mass/Vol]8.1 mg/dLLow8.6-10.3 [facility] HospitalComment on above:Performed By: #### [id number] ####[facility] ([facility])[address] [place], [place] [address]Eirwlcwd [Moles/Vol]104 mmol/PYqxvln55-077BgfmsawgiwSCCI Hospital LimaComment on above:Performed By: #### [id number] ####[facility] ([facility])[address] [place] [address]OB1 [Moles/Vol]30 mmol/NOaauyv28-04IiivlpivacSCCI Hospital LimaComment on above:Performed By: #### [id number] ####[facility] ([facility])[address] [place] [address]Ytezcupnat [Mass/Vol]3.10 mg/dLHigh 0.60-1.20UnSCCI Hospital LimaComment on above:Performed By: #### [id number] ####[facility] ([facility])[address] [place] [address]RINVMMZLDR FILTRATION RATE ML/MIN/1.73 SQ M.JKZNCWFPS89.7 mL/min/1.73m*2Low>60.0UnSCCI Hospital LimaComment on above:Result Comment: The [facility]???s estimated glomerular filtration rate (eGFR) will [...] group of individuals. Performed By: #### [id number] ####[facility] (QUE)[address] [place] [address]Jpbuqqf [Mass/Vol]89 mg/pLOkntqk76-001WerckoryduSCCI Hospital LimaComment on above:Performed By: #### [id number] ####[facility] ([facility])[address] [place] [address]Xpuppysgn [Moles/Vol]4.2 mmol/LNormal 3.5-5.1UnSCCI Hospital LimaComment on above:Performed By: #### [id number] ####[facility] ([facility])[address] [place] [address]Uaqkgh [Moles/Vol]140 mmol/KOnmokq228-196VkhathurxySCCI Hospital LimaComment on above:Performed By: #### [id number] ####[facility] ([facility])[address] [place] [address]Issw nitrogen [Mass/Vol]45 mg/dLHigh7-25UnSCCI Hospital LimaComment on above:Performed By: #### [id number] ####[facility] ([facility])[address] [place] [address]DVYD NITROGEN/CREATININE (MASS RATIO) IN SER/PLAS14.5NormalUniversTrinity Health System East CampusComment on above: Performed By: #### [id number] ####[facility] ([facility])[address] [place] [address]WBA WITH AUTO DIFFERENTIALon 35-84-6270Mkndzivbv (Bld) [#/Vol]0.05 10*3/uLNormal0.00-0.20UnSCCI Hospital LimaComment on above: Performed By: #### [id number] ####[facility] ([facility])[address] [place] [address]Vyarkpypd/100 WBC (Bld)0.7 %Normal0.0-1.0UnSCCI Hospital LimaComment on above:Performed By: #### [id number] ####[facility] ([facility])[address] [place] [address]Yjoqrjvxyqc (Bld) [#/Vol]0.24 10*3/uL Normal0.00-0.50UnSCCI Hospital LimaComment on above:Performed By: #### [id number] ####[facility] ([facility])[address] [place] [address] Eosinophils/100 WBC (Bld)3.1 %Normal0.0-6.0UnSCCI [facility] [place] Comment on above:Performed By: #### [id number] ####[facility] ([facility])[address] [place], [place] [address]Afzzwknqsdy distribution width (RBC) [Ratio]17.1 % High11.5-15.0UnSCC[facility] Hospital [place]imaComment on above:Performed By: #### [id number] ####[facility] ([facility])[address] [place] [address] ERYTHROCYTE MEAN CORPUSCULAR HEMOGLOBIN CONCENTRATION (G/DL) BY PJVIKEBSP71.4 g/dLLow32.0-35.0UnS[facility] Hospital [place]imaComment on above:Performed By: #### [id number] ####[facility] ([facility])[address] [place], [place] [address]Rlvnpcsckb (Bld) [Volume fraction]27.2 %Low36.0-48.0Un[facility] [place]imaComment on above:Performed By: #### [id number] ####[facility] ([facility])[address] [place], [place] [address]Frlxvrmuma (Bld) [Mass/Vol]8.0 g/dLLow 12.0-15.0Un[facility] [place]imaComment on above:Performed By: #### [id number] ####[facility] ([facility])[address] [place], [place] [address]Zjemxlqw granulocytes (Bld) [#/Vol]0.28 10*3/uLHigh0.00-0.20UnS[facility] Hospital [place]imaComment on above:Performed By: #### [id number] ####[facility] ([facility])[address] [place], [place] [address]Pmbozhya granulocytes/100 WBC (Bld)3.7 %High0.0-1.0Un[facility] Hospital [place]imaComment on above:Performed By: #### [id number] ####[facility] ([facility])[address] [place] [address] Lymphocytes (Bld) [#/Vol]0.92 10*3/uLLow1.20-4.00Un[facility] Hospital [place]imaComment on above:Performed By: #### [id number] ####[facility] ([facility])[address] [place] [address]Qiknbeskrtf/100 WBC (Bld)12.0 %Low 20.0-45.0UnS[facility] Hospital [place]imaComment on above:Performed By: #### [id number] ####[facility] ([facility])[address] [place] [address]AIW (RBC) [Entitic mass]27.4 hwAymbwr21.0-33.0[facility] [place] Comment on above:Performed By: #### [id number] ####[facility] ([facility])[address] [place] [address]XZG (RBC) [Entitic vol]93.2 vINdtocx64.0-98.0 [facility] HospitalComment on above:Performed By: #### [id number] ####[facility] ([facility])[address] [place] [address]Wyocwzwef (Bld) [#/Vol]0.65 10*3/uLNormal0.10-1.00Un[facility] Hospital [place]imaComment on above:Performed By: #### [id number] ####[facility] ([facility])[address] [place] [address]Gekcfiopx/100 WBC (Bld)8.5 %Normal5.0-12.0Un[facility] [place]imaComment on above:Performed By: #### [id number] ####[facility] ([facility])[address] [place] [address]Dhmporotmwx (Bld) [#/Vol] 5.79 10*3/uLNormal1.60-7.60UnS[facility] Hospital [place]imaComment on above: Performed By: #### [id number] ####[facility] ([facility])[address] [place] [address]Adpcxohavhf/100 WBC (Bld)75.7 %High40.0-72.0UnS[facility] Hospital [place]imaComment on above:Performed By: #### [id number] ####[facility] ([facility])[address] [place] [address]DYRP (PER 100 WBCS) BY AUTOMATED COUNT0.0 %Rvywau1WvymzyxvkpSCCI Hospital LimaComment on above: Performed By: #### [id number] ####[facility] ([facility])[address] [place] [address]XOCIBYOWS (10*3/UL) IN BLOOD AUTOMATED XEPES342 10*3/uLNormal 150-400UnSCCI Hospital LimaComment on above:Performed By: #### [id number] ####[facility] ([facility])[address] [place] [address]AAC (Bld) [#/Vol]2.92 10*6/uLLow3.80-5.00UnSCCI Hospital LimaComment on above:Performed By: #### [id number] ####[facility] ([facility])[address] [place] [address]QIP (Bld) [#/Vol]7.65 10*3/uLNormal4.00-10.60UnSCCI Hospital LimaComment on above:Performed By: #### [id number] ####[facility] ([facility])[address] [place] [address]PZGPQNVql 02-09-2024 CONSULTNormalUniversity [facility] Clinic Euclid HospitalMAGNESIUMon 64-05-2284Ezvyxdxds [Mass/Vol]3.2 mg/dLHigh1.9-2.7UnSCCI Hospital LimaComment on above:Performed By: #### [id number] ####[facility] ([facility])[address] [place] [address]XUMD GLUCOSE METER UNSOLICITED RESULTSon 09-82-3969Xqvmtbf [Mass/Vol]173 mg/qABqxx44-949PvhdgbquxtSCCI Hospital LimaComment on above:Order Comment: Waived Testing in the ED is performed under the ED CLIA certificate #[id number].Result Comment: ezpnhx10Adtemtrdl By: #### [id number] ####[facility] ([facility])[address] [place] [address]Kurqgfo [Mass/Vol]201 mg/bETome69-848LyxftmgyjmSCCI Hospital LimaComment on above:Order Comment: Waived Testing in the ED is performed under the ED CLIA certificate #[id number].Result Comment: bfloodPerformed By: #### [id number] ####[facility] ([facility])[address] [place], [place] [address]Fdrlyti [Mass/Vol]118 mg/hEJzrh24-201UpanpuythiSCCI Hospital LimaComment on above:Order Comment: Waived Testing in the ED is performed under the ED CLIA certificate #[id number].Result Comment: ixuacfx0Fkzfplkyl By: #### [id number] ####[facility] ([facility])[address] [place], [place] [address]Qsajzlb [Mass/Vol]129 mg/sVYelt12-918QiypwknnrpSCCI Hospital LimaComment on above:Order Comment: Waived Testing in the ED is performed under the ED CLIA certificate #[id number].Result Comment: jzdto6Ryjaezkhd By: #### [id number] ####[facility] ([facility])[address] [place] [address] 02-08-2024 30NormalUniversTrinity Health System East Campus30NormalUniversity [facility] Clinic Euclid HospitalBASIC METABOLIC PANELon 01-66-3717Miexd gap [Moles/Vol]10 mmol/LNormal7-20 [facility] HospitalComment on above:Performed By: #### [id number] ####[facility] ([facility])[address] [place], [place] [address]Dcohihf [Mass/Vol]8.3 mg/dLLow8.6-10.3UnSCCI Hospital LimaComment on above:Performed By: #### [id number] ####[facility] ([facility])[address] [place], [place] [address]Lfhoicao [Moles/Vol]101 mmol/FCospye42-196NfywfhjbpbSCCI Hospital LimaComment on above:Performed By: #### [id number] ####[facility] ([facility])[address] [place] [address]CS3 [Moles/Vol]30 mmol/LNormal 21-31UnSCCI Hospital LimaComment on above:Performed By: #### [id number] ####[facility] ([facility])[address] [place] [address]Axxlvuenlx [Mass/Vol]3.65 mg/dLHigh0.60-1.20UnSCCI Hospital LimaComment on above:Performed By: #### [id number] ####[facility] ([facility])[address] [place] [address]TZZXAAYYMX FILTRATION RATE ML/MIN/1.73 SQ M.IRIGMWQOZ11.0 mL/min/1.73m*2Low>60.0UnSCCI Hospital LimaComment on above:Result Comment: [facility]???s estimated glomerular filtration rate (eGFR) will [...] anyone group of individuals.Performed By: #### [id number] ####[facility] ([facility])[address] [place] [address]Jkthtds [Mass/Vol]102 mg/vMTlrm58-931JxbpcjkhtfSCCI Hospital LimaComment on above:Performed By: #### [id number] ####[facility] ([facility])[address] [place] [address]Osfioxmva [Moles/Vol]4.2 mmol/L Normal3.5-5.1UnSCCI Hospital LimaComment on above:Performed By: #### [id number] ####[facility] ([facility])[address] [place] [address] Sodium [Moles/Vol]137 mmol/YZtoaod033-772FghmvnhiocSCCI Hospital Lima Comment on above:Performed By: #### [id number] ####[facility] ([facility])[address] [place] [address]Ibci nitrogen [Mass/Vol]50 mg/dLHigh7-25UnSCCI Hospital LimaComment on above:Performed By: #### [id number] ####[facility] ([facility])[address] [place] [address]AOZR NITROGEN/CREATININE (MASS RATIO) IN SER/PLAS13.7NormalUniversTrinity Health System East CampusComment on above:Performed By: #### [id number] ####[facility] ([facility])[address] [place] [address]WCP WITH AUTO DIFFERENTIALon 84-13-1043Lekolqpkd (Bld) [#/Vol]0.03 10*3/uLNormal0.00-0.20UnSCCI Hospital LimaComment on above:Performed By: #### [id number] ####[facility] ([facility])[address] [place], [place] [address]Bancrhqgl/100 WBC (Bld)0.4 %Normal0.0-1.0UnSCCI Hospital LimaComment on above:Performed By: #### [id number] ####[facility] ([facility])[address] [place], [place] [address]Wnisrfzijue (Bld) [#/Vol]0.20 10*3/uL Normal0.00-0.50UnSCCI Hospital LimaComment on above:Performed By: #### [id number] ####[facility] ([facility])[address] [place] [address] Eosinophils/100 WBC (Bld)2.9 %Normal0.0-6.0UnSCCI Hospital [place] Comment on above:Performed By: #### [id number] ####[facility] ([facility])[address] [place], [place] [address]Dwhtclmjkry distribution width (RBC) [Ratio]16.9 % High11.5-15.0UnSCCI Hospital LimaComment on above:Performed By: #### [id number] ####[facility] ([facility])[address] [place] [address] ERYTHROCYTE MEAN CORPUSCULAR HEMOGLOBIN CONCENTRATION (G/DL) BY YKNKYFRQP89.8 g/dLLow32.0-35.0UnSCCI Hospital LimaComment on above:Performed By: #### [id number] ####[facility] ([facility])[address] [place], [place] [address]Jkklxfbzld (Bld) [Volume fraction]25.3 %Low36.0-48.0UnSCCI Hospital LimaComment on above:Performed By: #### [id number] ####[facility] ([facility])[address] [place], [place] [address]Xxqotwtvej (Bld) [Mass/Vol]7.8 g/dLLow 12.0-15.0UnSCCI Hospital LimaComment on above:Performed By: #### [id number] ####[facility] ([facility])[address] [place], [place] [address]Felsisgm granulocytes (Bld) [#/Vol]0.23 10*3/uLHigh0.00-0.20UnSCCI Hospital LimaComment on above:Performed By: #### [id number] ####[facility] ([facility])[address] [place], [place] [address]Fyrgkgik granulocytes/100 WBC (Bld)3.3 %High0.0-1.0UnSCCI Hospital LimaComment on above:Performed By: #### [id number] ####[facility] ([facility])[address] [place] [address] Lymphocytes (Bld) [#/Vol]0.80 10*3/uLLow1.20-4.00UnSCCI Hospital LimaComment on above:Performed By: #### [id number] ####[facility] ([facility])[address] [place], [place] [address]Mxwzxnevbfr/100 WBC (Bld)11.5 %Low 20.0-45.0UnSCCI Hospital LimaComment on above:Performed By: #### [id number] ####[facility] ([facility])[address] [place] [address]VWG (RBC) [Entitic mass]28.3 bfKvauwh87.0-33.0UnSCCI Hospital [place] Comment on above:Performed By: #### [id number] ####[facility] ([facility])[address] [place] [address]YHM (RBC) [Entitic vol]91.7 xMYmrhzu80.0-98.0 [facility] HospitalComment on above:Performed By: #### [id number] ####[facility] ([facility])[address] [place] [address]Oxijcsvuq (Bld) [#/Vol]0.63 10*3/uLNormal0.10-1.00UnSCCI Hospital LimaComment on above:Performed By: #### [id number] ####[facility] ([facility])[address] [place] [address]Decwwjjtd/100 WBC (Bld)9.0 %Normal5.0-12.0UnSCCI Hospital LimaComment on above:Performed By: #### [id number] ####[facility] ([facility])[address] [place], [place] [address]Wbdlspvhcsy (Bld) [#/Vol] 5.32 10*3/uLNormal1.60-7.60UnSCCI Hospital LimaComment on above: Performed By: #### [id number] ####[facility] ([facility])[address] [place] [address]Ixgnehbarav/100 WBC (Bld)76.2 %High40.0-72.0UnSCCI Hospital LimaComment on above:Performed By: #### [id number] ####[facility] ([facility])[address] [place] [address]RORW (PER 100 WBCS) BY AUTOMATED COUNT0.0 %Hlmqea6YbmvmddecvSCCI Hospital LimaComment on above: Performed By: #### [id number] ####[facility] ([facility])[address] [place] [address]DBZLYDXTT (10*3/UL) IN BLOOD AUTOMATED EHWKC429 10*3/uLNormal 150-400UnSCCI Hospital LimaComment on above:Performed By: #### [id number] ####[facility] ([facility])[address] [place] [address]NNY (Bld) [#/Vol]2.76 10*6/uLLow3.80-5.00UnSCCI Hospital LimaComment on above:Performed By: #### [id number] ####[facility] ([facility])[address] [place] [address]IIC (Bld) [#/Vol]6.98 10*3/uLNormal4.00-10.60UnSCCI Hospital LimaComment on above:Performed By: #### [id number] ####[facility] ([facility])[address] [place] [address]LKSGGQPRYbx 02-08-2024 Magnesium [Mass/Vol]3.6 mg/dLHigh1.9-2.7[facility] Comment on above:Performed By: #### [id number] ####[facility] ([facility])[address] [place] [address]NQVSKJLDob 97-66-5577VQYNCPXJMgeatwYhxlpqcfzi of [facility] Medical CenterPOCT GLUCOSE METER UNSOLICITED RESULTSon 08-67-8396Tcvtyko [Mass/Vol]160 mg/qQBlin56-139CstbvypuweSCCI Hospital LimaComment on above:Order Comment: Waived Testing in the ED is performed under the ED CLIA certificate #[id number].Result Comment: hliyh7Jivxwypcb By: #### [id number] ####[facility] ([facility])[address] [place] [address]Hpkpgvp [Mass/Vol]128 mg/hZQxjw06-307HnxiredoutSCCI Hospital LimaComment on above:Order Comment: Waived Testing in the ED is performed under the ED CLIA certificate #[id number].Result Comment: gqfr4Nptiunuzf By: #### [id number] ####[facility] ([facility])[address] [place] [address] 02-07-2024 30NormalUniversTrinity Health System [facility] Campus30NormalUniversTrinity Health System East CampusB-TYPE NATRIURETIC PEPTIDEon 39-96-9456Mrxuhscyose peptide B (Bld) [Mass/Vol]1210 pg/mLHigh0-100UnSCCI Hospital LimaComment on above:Performed By: #### [id number] ####[facility] ([facility])[address] [place], [place] [address]IHGKN METABOLIC PANELon 01-64-8954Izfmw gap [Moles/Vol]13 mmol/LNormal7-20[facility] HospitalComment on above:Performed By: #### [id number] ####[facility] ([facility])[address] [place] [address] Calcium [Mass/Vol]8.2 mg/dLLow8.6-10.3[facility] HospitalComment on above:Performed By: #### [id number] ####[facility] ([facility])[address] [place], [place] [address]Uujkagek [Moles/Vol]100 mmol/VFofhgy88-082CyxbbijkxgSCCI Hospital LimaComment on above:Performed By: #### [id number] ####[facility] ([facility])[address] [place], [place] [address]FQ2 [Moles/Vol]29 mmol/LNormal 21-31UnSCCI Hospital LimaComment on above:Performed By: #### [id number] ####[facility] ([facility])[address] [place], [place] [address]Ytaadmbfwm [Mass/Vol]3.57 mg/dLHigh0.60-1.20UnSCCI Hospital LimaComment on above:Performed By: #### [id number] ####[facility] ([facility])[address] [place] [address]FUUBMPFNCQ FILTRATION RATE ML/MIN/1.73 SQ M.CCHPCXOTE25.4 mL/min/1.73m*2Low>60.0UnSCCI Hospital LimaComment on above:Result Comment: [facility]???s estimated glomerular filtration rate (eGFR) will [...] anyone group of individuals.Performed By: #### [id number] ####[facility] ([facility])[address] [place], [place] [address]Yhghwvo [Mass/Vol]107 mg/sKHttu61-060YyrwfdejuaSCCI Hospital LimaComment on above:Performed By: #### [id number] ####[facility] ([facility])[address] [place], [place] [address]Gfmwpclff [Moles/Vol]4.0 mmol/L Normal3.5-5.1UnSCCI Hospital LimaComment on above:Performed By: #### [id number] ####[facility] ([facility])[address] [place] [address] Sodium [Moles/Vol]138 mmol/SPdigpu963-267XmyejqjqmaSCCI Hospital Lima Comment on above:Performed By: #### [id number] ####[facility] ([facility])[address] [place], [place] [address]Gdwg nitrogen [Mass/Vol]48 mg/dLHigh7-25UnSCCI Hospital LimaComment on above:Performed By: #### [id number] ####[facility] ([facility])[address] [place], [place] [address]STQR NITROGEN/CREATININE (MASS RATIO) IN SER/PLAS13.4NormalUniversTrinity Health System East CampusComment on above:Performed By: #### [id number] ####[facility] ([facility])[address] [place] [address]ZQF WITH AUTO DIFFERENTIALon 06-02-0504Abaayskym (Bld) [#/Vol]0.02 10*3/uLNormal0.00-0.20UnSCCI Hospital LimaComment on above:Performed By: #### [id number] ####[facility] ([facility])[address] [place], [place] [address]Vdaosllsd/100 WBC (Bld)0.3 %Normal0.0-1.0UnSCCI Hospital LimaComment on above:Performed By: #### [id number] ####[facility] ([facility])[address] [place], [place] [address]Usixciugcna (Bld) [#/Vol]0.01 10*3/uL Normal0.00-0.50UnSCCI Hospital LimaComment on above:Performed By: #### [id number] ####[facility] ([facility])[address] [place] [address] Eosinophils/100 WBC (Bld)0.1 %Normal0.0-6.0UnS[facility]I [facility] [place] Comment on above:Performed By: #### [id number] ####[facility] ([facility])[address] [place], [place] [address]Jkallwulcrz distribution width (RBC) [Ratio]16.9 % High11.5-15.0UnSCCI Hospital LimaComment on above:Performed By: #### [id number] ####[facility] ([facility])[address] [place] [address] ERYTHROCYTE MEAN CORPUSCULAR HEMOGLOBIN CONCENTRATION (G/DL) BY IPTRTZGJB47.5 g/dLLow32.0-35.0UnSCCI Hospital LimaComment on above:Performed By: #### [id number] ####[facility] ([facility])[address] [place], [place] [address]Zkxnhfaxvd (Bld) [Volume fraction]24.6 %Low36.0-48.0UnSCCI Hospital LimaComment on above:Performed By: #### [id number] ####[facility] ([facility])[address] [place], [place] [address]Uwcevzzuxa (Bld) [Mass/Vol]7.5 g/dLLow 12.0-15.0UnSCCI Hospital LimaComment on above:Performed By: #### [id number] ####[facility] ([facility])[address] [place], [place] [address]Arjciygp granulocytes (Bld) [#/Vol]0.09 10*3/uLNormal0.00-0.20UnSCCI Hospital LimaComment on above:Performed By: #### [id number] ####[facility] ([facility])[address] [place], [place] [address]Fbgcirzk granulocytes/100 WBC (Bld)1.2 %High0.0-1.0UnSCCI Hospital LimaComment on above:Performed By: #### [id number] ####[facility] ([facility])[address] [place] [address] Lymphocytes (Bld) [#/Vol]0.66 10*3/uLLow1.20-4.00UnSCCI Hospital LimaComment on above:Performed By: #### [id number] ####[facility] ([facility])[address] [place], [place] [address]Jmbyflscbwn/100 WBC (Bld)8.6 %Low 20.0-45.0UnSCCI Hospital LimaComment on above:Performed By: #### [id number] ####[facility])[address] [place], [place] [address]ADD (RBC) [Entitic mass]27.7 zsNfifam88.0-33.0UnS[facility]I [facility] Comment on above:Performed By: #### [id number] ####[facility] ([facility])[address] [place], [place] [address]EEX (RBC) [Entitic vol]90.8 cUVdwyqo28.0-98.0 [facility] HospitalComment on above:Performed By: #### [id number] ####[facility] ([facility])[address] [place] [address]Ytegojtjt (Bld) [#/Vol]0.50 10*3/uLNormal0.10-1.00UnSCCI Hospital LimaComment on above:Performed By: #### [id number] ####[facility] ([facility])[address] [place] [address]Dxnnldccq/100 WBC (Bld)6.5 %Normal5.0-12.0UnSCCI Hospital LimaComment on above:Performed By: #### [id number] ####[facility] ([facility])[address] [place] [address]Klubzlucfse (Bld) [#/Vol] 6.50 10*3/uLNormal1.60-7.60UnSCCI Hospital LimaComment on above: Performed By: #### [id number] ####[facility] ([facility])[address] [place] [address]Fcasoqbnoym/100 WBC (Bld)84.5 %High40.0-72.0UnSCCI Hospital LimaComment on above:Performed By: #### [id number] ####[facility] ([facility])[address] [place] [address]NMUK (PER 100 WBCS) BY AUTOMATED COUNT0.0 %Bzjivo8MwjhscxcczSCCI Hospital LimaComment on above: Performed By: #### [id number] ####[facility])[address] [place] [address]AOZNDWDRU (10*3/UL) IN BLOOD AUTOMATED [id number] 10*3/uLNormal 150-400UnSCCI Hospital LimaComment on above:Performed By: #### [id number] ####[facility] ([facility])[address] [place] [address]MYU (Bld) [#/Vol]2.71 10*6/uLLow3.80-5.00UnSCCI Hospital LimaComment on above:Performed By: #### [id number] ####[facility] ([facility])[address] [place] [address]WSP (Bld) [#/Vol]7.69 10*3/uLNormal4.00-10.60UnSCCI Hospital LimaComment on above:Performed By: #### [id number] ####[facility] ([facility])[address] [place] [address]PXOJHULJKki 02-07-2024 Magnesium [Mass/Vol]3.7 mg/dLHigh1.9-2.7UnS[facility] Comment on above:Performed By: #### [id number] ####[facility] ([facility])[address] [place] [address]WERO GLUCOSE METER UNSOLICITED RESULTSon 02-07-2024 Glucose [Mass/Vol]141 mg/mLJmtd13-850PwcgzzffeeSCCI Hospital LimaComment on above:Order Comment: Waived Testing in the ED is performed under the ED CLIA certificate #[id number].Result Comment: yygmvbv9Wcvetnaha By: #### [id number] ####[facility] ([facility])[address] [place] [address]Kjujzxe [Mass/Vol]133 mg/lOAres24-535OgyojmwzooSCCI Hospital LimaComment on above:Order Comment: Waived Testing in the ED is performed under the ED CLIA certificate #[id number].Result Comment: pqkqtic1Nehcxynwt By: #### [id number] ####[facility] ([facility])[address] [place] [address]Fyryuym [Mass/Vol]127 mg/oEWwyu95-436JdgolefiurSCCI Hospital LimaComment on above:Order Comment: Waived Testing in the ED is performed under the ED CLIA certificate #[id number].Result Comment: [id number] By: #### [id number] ####[facility] ([facility])[address] [place] [id number] 02-06-2024 30NormalUniversity [facility]30NormalUniversity [facility]ucl[facility] HospitalBASIC METABOLIC PANELon 46-93-0860Dsstv gap [Moles/Vol]17 mmol/LNormal7-20 [facility] HospitalComment on above:Performed By: #### [id number] ####[facility] ([facility])[address] [place] [address]Lfzqbow [Mass/Vol]8.2 mg/dLLow8.6-10.3UnSCCI Hospital LimaComment on above:Performed By: #### [id number] ####[facility] ([facility])[address] [place] [address]Ztjbcgrd [Moles/Vol]100 mmol/YColhhf41-588DtwwfeinylSCCI Hospital LimaComment on above:Performed By: #### [id number] ####[facility] ([facility])[address] [place] [address]HP7 [Moles/Vol]25 mmol/LNormal 21-31UnSCCI Hospital LimaComment on above:Performed By: #### [id number] ####[facility] ([facility])[address] [place] [address]Ipxzhwibgj [Mass/Vol]3.14 mg/dLHigh0.60-1.20UnSCCI Hospital LimaComment on above:Performed By: #### [id number] ####[facility] ([facility])[address] [place] [address]ISPJWJWAIA FILTRATION RATE ML/MIN/1.73 SQ M.EPCMAGDBG86.4 mL/min/1.73m*2Low>60.0UnSCCI Hospital LimaComment on above:Result Comment: [facility]???s estimated glomerular filtration rate (eGFR) will [...] anyone group of individuals.Performed By: #### [id number] ####[facility] ([facility])[address] [place], [place] [address]Hteqrct [Mass/Vol]97 mg/aQOlozgs08-673DxbhfhbcrrSCCI Hospital LimaComment on above:Performed By: #### [id number] ####[facility] ([facility])[address] [place] [address]Rkpjxhmxd [Moles/Vol]4.3 mmol/LNormal3.5-5.1UnSCCI Hospital LimaComment on above:Performed By: #### [id number] ####[facility] ([facility])[address] [place] [address] Sodium [Moles/Vol]138 mmol/LYtuiks167-063HboxudjqkzSCCI Hospital Lima Comment on above:Performed By: #### [id number] ####[facility] ([facility])[address] [facility] [place] [facility] [address]Vjjm nitrogen [Mass/Vol]37 mg/dLHigh7-25UnSCCI Hospital LimaComment on above:Performed By: #### [id number] ####[facility] ([facility])[address] [place] [address]DEFG NITROGEN/CREATININE (MASS RATIO) IN SER/PLAS11.8NormalUniversTrinity Health System East CampusComment on above:Performed By: #### [id number] ####[facility] ([facility])[address] [facility] [place] [facility] [address]IJF WITH AUTO DIFFERENTIALon 04-72-3666Rojljunnj (Bld) [#/Vol]0.01 10*3/uLNormal0.00-0.20UnSCCI Hospital LimaComment on above:Performed By: #### [id number] ####[facility] ([facility])[address] [facility] [place] [address]Jrijeymml/100 WBC (Bld)0.1 %Normal0.0-1.0UnSCCI Hospital LimaComment on above:Performed By: #### [id number] ####[facility] [facility] ([facility])[address] [place], [place] [address]Xjqgribvasw (Bld) [#/Vol]0.00 10*3/uL Normal0.00-0.50UnSCCI Hospital LimaComment on above:Performed By: #### [id number] ####[facility] ([facility])[address] [place] [address] Eosinophils/100 WBC (Bld)0.0 %Normal0.0-6.0UnSCCI Hospital [place] Comment on above:Performed By: #### [id number] ####[facility] ([facility])[address] [place], [place] [address]Biyvztbwvzd distribution width (RBC) [Ratio]16.2 % High11.5-15.0UnSCCI Hospital LimaComment on above:Performed By: #### [id number] ####[facility] ([facility])[address] [place] [address] ERYTHROCYTE MEAN CORPUSCULAR HEMOGLOBIN CONCENTRATION (G/DL) BY UONZVBTAC08.7 g/dLLow32.0-35.0UnSCCI Hospital LimaComment on above:Performed By: #### [id number] ####[facility] ([facility])[address] [place], [place] [address]Rwmesvmxzn (Bld) [Volume fraction]25.7 %Low36.0-48.0UnSCCI Hospital LimaComment on above:Performed By: #### [id number] ####[facility] ([facility])[address] [place], [place] [address]Fwdtafbkam (Bld) [Mass/Vol]7.9 g/dLLow 12.0-15.0UnSCCI Hospital LimaComment on above:Performed By: #### [id number] ####[facility] ([facility])[address] [place], [place] [address]Entjrlwx granulocytes (Bld) [#/Vol]0.07 10*3/uLNormal0.00-0.20UnSCCI Hospital LimaComment on above:Performed By: #### [id number] ####[facility] ([facility])[address] [place] [address]Mngtbebm granulocytes/100 WBC (Bld)0.9 %Normal0.0-1.0UnSCCI Hospital LimaComment on above:Performed By: #### [id number] ####[facility] ([facility])[address] [place] [address] Lymphocytes (Bld) [#/Vol]0.46 10*3/uLLow1.20-4.00UnSCCI Hospital LimaComment on above:Performed By: #### [id number] ####[facility] ([facility])[address] [place], [place] [address]Mojidzhsgfw/100 WBC (Bld)6.2 %Low 20.0-45.0UnSCCI Hospital LimaComment on above:Performed By: #### [id number] ####[facility] ([facility])[address] [place] [address]ISY (RBC) [Entitic mass]27.9 rxGbiivo71.0-33.0UnSCCI [facility] [place] Comment on above:Performed By: #### [id number] ####[facility] ([facility])[address] [place], [place] [address]TTN (RBC) [Entitic vol]90.8 nLLmcxlr91.0-98.0 [facility] HospitalComment on above:Performed By: #### [id number] ####[facility] ([facility])[address] [place] [place] [facility] [address]Lgrjqbgjh (Bld) [#/Vol]0.19 10*3/uLNormal0.10-1.00UnSCCI Hospital LimaComment on above:Performed By: #### [id number] ####[facility] ([facility])[address] [place], [place] [address]Gwmnzndeg/100 WBC (Bld)2.6 %Low5.0-12.0UnSCCI Hospital LimaComment on above:Performed By: #### [id number] ####[facility] ([facility])[address] [place] [address]Ryycosmovvp (Bld) [#/Vol]6.77 10*3/uL Normal1.60-7.60UnSCCI Hospital LimaComment on above:Performed By: #### [id number] ####[facility] ([facility])[address] [place] [address] Neutrophils/100 WBC (Bld)91.1 %High40.0-72.0Un[facility] [place] Comment on above:Performed By: #### [id number] ####[facility] ([facility])[address] [place] [address]ZKCC (PER 100 WBCS) BY AUTOMATED COUNT0.0 %Normal0 [facility] HospitalComment on above:Performed By: #### [id number] ####[facility] ([facility])[address] [place] [address]LHQALEXUX (10*3/UL) IN BLOOD AUTOMATED FDRQD402 10*3/jRWtkefq310-774ZkasunzoquSCCI Hospital LimaComment on above:Performed By: #### [id number] ####[facility] ([facility])[address] [place] [address]YYR (Bld) [#/Vol]2.83 10*6/uLLow 3.80-5.00UnSCCI Hospital LimaComment on above:Performed By: #### [id number] ####[facility] ([facility])[address] [place], [place] [address]GYM (Bld) [#/Vol]7.43 10*3/uLNormal4.00-10.60Un[facility] [place] Comment on above:Performed By: #### [id number] ####[facility] ([facility])[address] [place], [place] [address]OBDYEXRpx 53-91-1698QIPNAOUYckoryNpclxwoyrm of [facility] Medical CenterCREATININE, URINE, RANDOMon 88-55-9788Idfipajgwg (U) [Mass/Vol]82.0 mg/xVPktlrz95-430YdjxagqddqSCCI Hospital LimaComment on above:Performed By: #### [id number] ####[facility] ([facility])[address] [place], [place] [address]GVSPCN ACID, PLASMAon 67-32-5886TVODCPG (MMOL/L) IN SER/PLAS 0.4 mmol/LLow0.5-2.2UnSCCI Hospital LimaComment on above: Performed By: #### [id number] ####[facility] ([facility])[address] [place], [place] [address]KKXHAJIGZjt 39-79-7670Arrpjympx [Mass/Vol]3.6 mg/dLHigh1.9-2.7 [facility] HospitalComment on above:Performed By: #### [id number] ####[facility] ([facility])[address] [place], [place] [address]NLMIUPPRee 18-39-7908JFMNKUKGGlpkjwBuwmnqupyk of [facility] Medical CenterNURSNOTMiriam Hospitalrmal [facility] HospitalPOCT GLUCOSE METER UNSOLICITED RESULTSon 56-56-5630Wkauwjm [Mass/Vol]150 mg/sREhzg06-647TndmylfztySCCI Hospital LimaComment on above:Order Comment: Waived Testing in the ED is performed under the ED CLIA certificate #[id number].Result Comment: [id number] By: #### [id number] ####[facility] ([facility])[address] [place] [address] Glucose [Mass/Vol]195 mg/zODxvm15-480TvaapxqkncSCCI Hospital LimaComment on above:Order Comment: Waived Testing in the ED is performed under the ED CLIA certificate #[id number].Result Comment: [id number] By: #### [id number] ####[facility] ([facility])[address] [place], [place] [address]Pqdfwiz [Mass/Vol]123 mg/hPKmea01-263JdwfdnyzmnSCCI Hospital LimaComment on above:Order Comment: Waived Testing in the ED is performed under the ED CLIA certificate #[id number].Result Comment: evuvdkl2Romgwyqor By: #### [id number] ####[facility] ([facility])[address] [place], [place] [address]Wfwhxwl [Mass/Vol]130 mg/mQAiax36-005KispoctgmrSCCI Hospital LimaComment on above:Order Comment: Waived Testing in the ED is performed under the ED CLIA certificate #[id number].Result Comment: [id number] By: #### [id number] ####[facility] ([facility])[address] [place], [place] [address]Msqjwsx [Mass/Vol]122 mg/bJVzzm96-912GhcgfsuoazSCCI Hospital LimaComment on above:Order Comment: Waived Testing in the ED is performed under the ED CLIA certificate #[id number].Result Comment: [id number] By: #### [id number] ####[facility] ([facility])[address] [place], [place] [address]LQMDII, URINE, RANDOMon 56-26-7921Xszkbq (U) [Moles/Vol]45 mmol/LNormalUnSCCI Hospital LimaComment on above:Performed By: #### [id number] ####[facility] ([facility])[address] [place], [place] [address]AOAZLVKHGA WITH MICROSCOPICon 25-03-4587HXRPDZWOX, TOTAL PRESENCE IN URINENegativeNormalNegativeUnSCCI Hospital LimaComment on above:Performed By: #### [id number] ####[facility] ([facility])[address] [place], [place] [address]Xtbscmu (U)CloudyAbnormal ClearUnSCCI Hospital LimaComment on above:Performed By: #### [id number] ####[facility] ([facility])[address] [place], [place] [address]Tljgw (U)YellowNormalColorless, Yellow, Light-YellowUnSCCI Hospital LimaComment on above:Performed By: #### [id number] ####[facility] ([facility])[address] [place], [place] [address]XMZKLEG (MG/DL) IN URINENormalNormal NormalUnSCCI Hospital LimaComment on above:Performed By: #### [id number] ####[facility] ([facility])[address] [place] [address] HEMOGLOBIN PRESENCE IN URINEModerateAbnormalNegativeUnSCCI Hospital LimaComment on above:Performed By: #### [id number] ####[facility] ([facility])[address] [place], [place] [address]Wecpgat Ql (U)TraceAbnormalNegative [facility] HospitalComment on above:Performed By: #### [id number] ####[facility] ([facility])[address] [place], [place] [address]JRWYYKSBP ESTERASE PRESENCE IN URINE BY TEST STRIPNegativeNormalNegativeUnSCCI Hospital LimaComment on above:Performed By: #### [id number] ####[facility] ([facility])[address] [place], [place] [address]MIQDV (#/LPF) IN URINE SEDIMENTOccasionalNormalNone Seen, Occasional, FewUnSCCI Hospital LimaComment on above:Performed By: #### [id number] ####[facility] ([facility])[address] [place], [place] [address]YEGVIPH PRESENCE IN URINENegative NormalNegativeUnSCCI Hospital LimaComment on above:Performed By: #### [id number] ####[facility] ([facility])[address] [place], [place] [address]xU (U)5.5 [pH]Normal5.0-8.0UnSCCI Hospital LimaComment on above: Performed By: #### [id number] ####[facility] ([facility])[address] [place], [place] [address]Eyjebyb (U) [Mass/Vol]30 mg/dLAbnormalNegativeUnSCCI Hospital LimaComment on above:Performed By: #### [id number] ####[facility] ([facility])[address] [place] [address]PJZ (#/HPF) IN URINE SEDIMENT>20AbnormalNone Seen, 0-2UnSCCI Hospital LimaComment on above:Performed By: #### [id number] ####[facility] ([facility])[address] [place] [address]Rwqbnbvx gravity (U) [Rel density]>1.791Qpcv6.010-1.030 [facility] HospitalComment on above:Performed By: #### [id number] ####[facility] ([facility])[address] [place], [place] [address]LURFKRWN EPITHELIAL CELLS (#/LPF) IN URINE SEDIMENTOccasionalNormalNone Seen, Occasional, FewUnSCCI Hospital LimaComment on above:Performed By: #### [id number] ####[facility] ([facility])[address] [place] [address] UROBILINOGEN (MG/DL) IN URINENormalNormalNormalUniSalem City HospitalComment on above:Performed By: #### [id number] ####[facility] ([facility])[address] [place] [address]KJD (LEUKOCYTE) (#/HPF) IN URINE SEDIMENT6-10AbnormalNone Seen, 0-2UnSCCI Hospital LimaComment on above:Performed By: #### [id number] ####[facility] ([facility])[address] [place], [place] [address]cn 08-01-675425JvlohmGdjxpnyipk of [facility] [facility] Xkbqmf88 NormalUnSCCI Hospital LimaANESon 23-39-9041SQNUYlopfaGqilfardhw of [facility] Medical CenterBASIC METABOLIC PANELon 02-14-87[address]Lvlyp gap [Moles/Vol] 13 mmol/LNormal7-20UnSCCI Hospital LimaComment on above:Performed By: #### [id number] ####[facility] ([facility])[address] [place] [address] Calcium [Mass/Vol]8.1 mg/dLLow8.6-10.3UnSCCI Hospital LimaComment on above:Performed By: #### [id number] ####[facility] ([facility])[address] [place], [place] [address]Chcwrwun [Moles/Vol]95 mmol/KYmz29-291VugvgggncmSCCI Hospital LimaComment on above:Performed By: #### [id number] ####[facility] ([facility])[address] [place], [place] [address]QT6 [Moles/Vol]32 mmol/QZhbk02-07 [facility] HospitalComment on above:Performed By: #### [id number] ####[facility] ([facility])[address] [place], [place] [address]Rpgvavhyli [Mass/Vol]2.79 mg/dLHigh0.60-1.20UnSCCI Hospital LimaComment on above:Performed By: #### [id number] ####[facility] ([facility])[address] [place], [place] [address]KHFDWCWTWN FILTRATION RATE ML/MIN/1.73 SQ M.XQZGIEXJP75.6 mL/min/1.73m*2Low>60.0UnSCCI Hospital LimaComment on above:Result Comment: The [facility]???s estimated glomerular filtration rate (eGFR) will [...] anyone group of individuals.Performed By: #### [id number] ####[facility] ([facility])[address] [place], [place] [address]Goinnye [Mass/Vol]95 mg/qQMazbri31-437PhyjwkaabpSCCI Hospital LimaComment on above:Performed By: #### [id number] ####[facility] ([facility])[address] [place], [place] [address]Asllpseuf [Moles/Vol]3.6 mmol/LNormal3.5-5.1UnSCCI Hospital LimaComment on above:Performed By: #### [id number] ####[facility] ([facility])[address] [address] Sodium [Moles/Vol]136 mmol/VJgrekr898-317UnzihrtwxmSCCI Hospital Lima Comment on above:Performed By: #### [id number] ####[facility] ([facility])[address] [place], [place] [address]Yxld nitrogen [Mass/Vol]29 mg/dLHigh7-25UnSCCI Hospital LimaComment on above:Performed By: #### [id number] ####[facility] ([facility])[address] [place], [place] [address]WPME NITROGEN/CREATININE (MASS RATIO) IN SER/PLAS10.4NormalUniversTrinity Health System East CampusComment on above:Performed By: #### [id number] ####[facility] ([facility])[address] [place], [place] [address]QMU WITH AUTO DIFFERENTIALon 68-98-1635Qslkwamxd (Bld) [#/Vol]0.02 10*3/uLNormal0.00-0.20UnSCCI Hospital LimaComment on above:Performed By: #### [id number] ####[facility] ([facility])[address] [place], [place] [address]Aovqfuqjt/100 WBC (Bld)0.3 %Normal0.0-1.0UnSCCI Hospital LimaComment on above:Performed By: #### [id number] ####[facility] ([facility])[address] [place], [place] [address]Gydoshmdsxn (Bld) [#/Vol]0.30 10*3/uL Normal0.00-0.50UnSCCI Hospital LimaComment on above:Performed By: #### [id number] ####[facility] ([facility])[address] [place] [address] Eosinophils/100 WBC (Bld)4.0 %Normal0.0-6.0UnS[facility]I [facility] [place] Comment on above:Performed By: #### [id number] ####[facility])[address] [place], [place] [address]Mbndirkertx distribution width (RBC) [Ratio]16.3 % High11.5-15.0UnSCCI Hospital LimaComment on above:Performed By: #### [id number] ####[facility] ([facility])[address] [place] [address] ERYTHROCYTE MEAN CORPUSCULAR HEMOGLOBIN CONCENTRATION (G/DL) BY QLVBRVCAJ04.2 g/dLLow32.0-35.0UnSCCI Hospital LimaComment on above:Performed By: #### [id number] ####[facility] ([facility])[address] [place], [place] [address]Krhdlpldid (Bld) [Volume fraction]24.8 %Low36.0-48.0UnSCCI Hospital LimaComment on above:Performed By: #### [id number] ####[facility] ([facility])[address] [place], [place] [address]Orepnzsxka (Bld) [Mass/Vol]7.5 g/dLLow 12.0-15.0UnSCCI Hospital LimaComment on above:Performed By: #### [id number] ####[facility] ([facility])[address] [place], [place] [address]Qjnglaov granulocytes (Bld) [#/Vol]0.04 10*3/uLNormal0.00-0.20UnSCCI Hospital LimaComment on above:Performed By: #### [id number] ####[facility] ([facility])[address] [place], [place] [address]Fonwqmxt granulocytes/100 WBC (Bld)0.5 %Normal0.0-1.0UnSCCI Hospital LimaComment on above:Performed By: #### [id number] ####[facility] ([facility])[address] [address] Lymphocytes (Bld) [#/Vol]0.58 10*3/uLLow1.20-4.00UnSCCI Hospital LimaComment on above:Performed By: #### [id number] ####[facility] ([facility])[address] [place], [place] [address]Nubnjudoytd/100 WBC (Bld)7.7 %Low 20.0-45.0UnSCCI Hospital LimaComment on above:Performed By: #### [id number] ####[facility] ([facility])[address] [place], [place] [address]VHV (RBC) [Entitic mass]27.4 neJplues43.0-33.0UnSCCI [facility] [place] Comment on above:Performed By: #### [id number] ####[facility] ([facility])[address] [place], [place] [address]KYX (RBC) [Entitic vol]90.5 iJFolfxf46.0-98.0 [facility] HospitalComment on above:Performed By: #### [id number] ####[facility] ([facility])[address] [place], [place] [address]Ffzogsdst (Bld) [#/Vol]0.52 10*3/uLNormal0.10-1.00UnSCCI Hospital LimaComment on above:Performed By: #### [id number] ####[facility] ([facility])[address] [place], [place] [address]Dfqrvsvnt/100 WBC (Bld)6.9 %Normal5.0-12.0UnSCCI Hospital LimaComment on above:Performed By: #### [id number] ####[facility] ([facility])[address] [facility] [place] [place] [address]Ziufqtazkxj (Bld) [#/Vol] 6.03 10*3/uLNormal1.60-7.60UnSCCI Hospital LimaComment on above: Performed By: #### [id number] ####[facility] ([facility])[address] [place] [address]Svuztwavprx/100 WBC (Bld)80.6 %High40.0-72.0UnSCCI Hospital LimaComment on above:Performed By: #### [id number] ####[facility] ([facility])[address] [place] [address]RRNZ (PER 100 WBCS) BY AUTOMATED COUNT0.0 %Esbwis6VkrhxbfiepSCCI Hospital LimaComment on above: Performed By: #### [id number] ####[facility] ([facility])[address] [place] [address]KYAWEPZIN (10*3/UL) IN BLOOD AUTOMATED NLGUM659 10*3/uLNormal 150-400UnSCCI Hospital LimaComment on above:Performed By: #### [id number] ####[facility] ([facility])[address] [place] [address]RJK (Bld) [#/Vol]2.74 10*6/uLLow3.80-5.00UnSCCI Hospital LimaComment on above:Performed By: #### [id number] ####[facility] ([facility])[address] [place] [address]JOC (Bld) [#/Vol]7.49 10*3/uLNormal4.00-10.60UnSCCI Hospital LimaComment on above:Performed By: #### [id number] ####[facility] ([facility])[address] [place] [address]HPUPIOWgn 02-05-2024 CONSULTNormalUniversTrinity Health System East CampusHPon 56-02-7226NID&P reviewed. The patient was examined and there are no changes to the H&P.NormalUnSCCI Hospital LimaMAGNESIUMon 05-52-0132Yddsatqxh [Mass/Vol]3.6 mg/dLHigh 1.9-2.7UnSCCI Hospital LimaComment on above:Performed By: #### [id number] ####[facility] ([facility])[address] [place], [place] [address]UI BRAIN WO CONTRASTon 64-55-0516LZ BRAIN WO CONTRASTInvalid Interpretation Code [facility] HospitalNURSNOTEon 88-50-5706ZVLWHVQWCueaiuMmrmyevymj of [facility] CenterNURSNOTEReport called to Kayleigh MELGAR all questions answered.NormalUnSCCI Hospital LimaOPNOTEon 85-66-8075FXFPNN NormalUnSCCI Hospital LimaPOCT GLUCOSE METER UNSOLICITED RESULTS on 03-60-0124Guougvj [Mass/Vol]117 mg/qRBoid39-780DeliegvfemSCCI Hospital LimaComment on above:Order Comment: Waived Testing in the ED is performed under the ED CLIA certificate #[id number].Result Comment: [id number] By: #### [id number] ####[facility] ([facility])[address] [place] [address] Glucose [Mass/Vol]102 mg/wWUnlnlq61-869CiriqteeifSCCI Hospital Lima Comment on above:Order Comment: Waived Testing in the ED is performed under the ED CLIA certificate #[id number].Result Comment: leulerPerformed By: #### [id number] ####[facility] ([facility])[address] [place], [place] [address]Ybxjesv [Mass/Vol]100 mg/jLWleecd36-181XupknbudwuSCCI Hospital LimaComment on above:Order Comment: Waived Testing in the ED is performed under the ED CLIA certificate #[id number].Result Comment: svandygPerformed By: #### [id number] ####[facility] ([facility])[address] [place], [place] [address]Suunagu [Mass/Vol]114 mg/mULzfm41-419KyvyunvbqtSCCI Hospital LimaComment on above:Order Comment: Waived Testing in the ED is performed under the ED CLIA certificate #[id number].Result Comment: agoettiPerformed By: #### [id number] ####[facility] ([facility])[address] [place], [place] [address]GKZEbu 20-86-1266JGBQZimtinDlrvadnqro of [place] Medical CenterANTI-XA (HEPARIN LEVEL)on 59-54-1937MMGUXDC UNFRACTIONATED (U/ML) IN PPP BY CHROMOGENIC METHOD>1.00 Critically high0.3-0.7UnSCCI Hospital LimaComment on above:Result Comment: Rivaroxaban and Apixaban will interfere with the anti Xa assay used to monitor UFH and LMWH.Performed By: #### [id number] ####[facility] ([facility])[address] [place] [address]TGFLmx 66-20-5354ASWCQZBXO PARTIAL THROMBOPLASTIN TIME IN PPP BY COAGULATION ASSAY45.7 BxvxdswSepe99.0-35.0 [facility] [place] HospitalComment on above:Order Comment: Check aPTT every 6 hours while on heparin infusion, or per protocol.Result Comment: Clinical significance of the APTT is questionable in the presence of heparin. Performed By: #### [id number] ####[facility] ([facility])[address] [place], [place] [address]SEDISFODR PARTIAL THROMBOPLASTIN TIME IN PPP BY COAGULATION ASSAY40.3 ZunnmayGqhr52.0-35.0UnSCCI Hospital LimaComment on above:Order Comment: Check aPTT every 6 hours while on heparin infusion, or per protocol.Result Comment: Clinical significance of the APTT is questionable in the presence of heparin.Performed By: #### [id number] ####[facility] ([facility])[address] [place], [place] [address]LDVOZ METABOLIC PANELon 02-04-2024 Anion gap [Moles/Vol]15 mmol/LNormal7-20UnSCCI Hospital [place]ima Comment on above:Performed By: #### [id number] ####[facility] ([facility])[address] [place], [place] [address]Iypruzn [Mass/Vol]8.0 mg/dLLow8.6-10.3UnSCCI Hospital LimaComment on above:Performed By: #### [id number] ####[facility] ([facility])[address] [place] [address]Fbykughy [Moles/Vol]96 mmol/QWpi09-325XvhgykkrpkSCCI Hospital LimaComment on above:Performed By: #### [id number] ####[facility] ([facility])[address] [place] [address]HQ4 [Moles/Vol]29 mmol/WDfjehz81-04MqqviygkuySCCI Hospital LimaComment on above:Performed By: #### [id number] ####[facility] ([facility])[address] [place] [address]Nepafxiigm [Mass/Vol]1.87 mg/dLHigh0.60-1.20UnSCCI Hospital LimaComment on above:Performed By: #### [id number] ####[facility] ([facility])[address] [place] [address]GIMJXMPPDQ FILTRATION RATE ML/MIN/1.73 SQ M.XXVTQOHFV55.9 mL/min/1.73m*2Low>60.0UnSCCI Hospital LimaComment on above:Result Comment: The [facility]???s estimated glomerular filtration rate (eGFR) will [...] anyone group of individuals.Performed By: #### [id number] ####[facility] ([facility])[address] [place] [address]Kcrxcms [Mass/Vol]95 mg/qARoaweb63-106OehezkbpyhSCCI Hospital LimaComment on above:Performed By: #### [id number] ####[facility] ([facility])[address] [place] [address]Osetnzlqt [Moles/Vol]4.0 mmol/LNormal3.5-5.1UnSCCI Hospital LimaComment on above:Performed By: #### [id number] ####[facility] ([facility])[address] [place] [address]Lekvhi [Moles/Vol]136 mmol/L Tuhzlh985-641MgpascphpuSCCI Hospital LimaComment on above:Performed By: #### [id number] ####[facility] ([facility])[address] [place] [address]Rakg nitrogen [Mass/Vol]24 mg/dLNormal7-25UnSCCI Hospital LimaComment on above:Performed By: #### [id number] ####[facility] ([facility])[address] [place], [place] [address]ENLL NITROGEN/CREATININE (MASS RATIO) IN SER/PLAS12.8Normal [facility] HospitalComment on above:Performed By: #### [id number] ####[facility] ([facility])[address] [place], [place] [address]PSN WITH AUTO DIFFERENTIALon 03-72-8701Ffedoitcz (Bld) [#/Vol]0.02 10*3/uLNormal0.00-0.20 [facility] HospitalComment on above:Performed By: #### [id number] ####[facility] ([facility])[address] [place], [place] [address]Fhykitiqa/100 WBC (Bld)0.2 %Normal0.0-1.0UnSCCI Hospital LimaComment on above: Performed By: #### [id number] ####[facility] ([facility])[address] [place], [place] [address]Bqusbowafla (Bld) [#/Vol]0.18 10*3/uLNormal0.00-0.50 [facility] HospitalComment on above:Performed By: #### [id number] ####[facility] ([facility])[address] [place], [place] [address]Gisfwkqnfcw/100 WBC (Bld)2.2 %Normal0.0-6.0UnSCCI Hospital LimaComment on above: Performed By: #### [id number] ####[facility] ([facility])[address] [place], [place] [address]Jsxrgnnfqai distribution width (RBC) [Ratio]16.1 %High 11.5-15.0UnSCCI Hospital LimaComment on above:Performed By: #### [id number] ####[facility] ([facility])[address] [place] [address] ERYTHROCYTE MEAN CORPUSCULAR HEMOGLOBIN CONCENTRATION (G/DL) BY JWCPFAGOJ10.4 g/dLLow32.0-35.0UnSCCI Hospital LimaComment on above:Performed By: #### [id number] ####[facility] ([facility])[address] [place], [place] [address]Yzdgbqyxqv (Bld) [Volume fraction]28.0 %Low36.0-48.0UnSCCI Hospital LimaComment on above:Performed By: #### [id number] ####[facility] ([facility])[address] [place], [place] [address]Yfribqrxyb (Bld) [Mass/Vol]8.8 g/dLLow 12.0-15.0UnSCCI Hospital LimaComment on above:Performed By: #### [id number] ####[facility] ([facility])[address] [place], [place] [address]Zluqogqj granulocytes (Bld) [#/Vol]0.04 10*3/uLNormal0.00-0.20UnSCCI Hospital LimaComment on above:Performed By: #### [id number] ####[facility] ([facility])[address] [place], [place] [address]Gsfxtbnl granulocytes/100 WBC (Bld)0.5 %Normal0.0-1.0UnSCCI Hospital LimaComment on above:Performed By: #### [id number] ####[facility] ([facility])[address] [place] [address] Lymphocytes (Bld) [#/Vol]0.52 10*3/uLLow1.20-4.00UnSCCI Hospital LimaComment on above:Performed By: #### [id number] ####[facility] ([facility])[address] [place], [place] [address]Ffxkyoijgrm/100 WBC (Bld)6.5 %Low 20.0-45.0UnSCCI Hospital LimaComment on above:Performed By: #### [id number] ####[facility] ([facility])[address] [place], [place] [address]XHX (RBC) [Entitic mass]28.3 faUdcyun71.0-33.0UnSCCI Hospital [place] Comment on above:Performed By: #### [id number] ####[facility] ([facility])[address] [place], [place] [address]SRC (RBC) [Entitic vol]90.0 wZKymmrb78.0-98.0 [facility] HospitalComment on above:Performed By: #### [id number] ####[facility] ([facility])[address] [place], [place] [address]Xbpmmusdm (Bld) [#/Vol]0.65 10*3/uLNormal0.10-1.00UnSCCI Hospital LimaComment on above:Performed By: #### [id number] ####[facility] ([facility])[address] [place], [place] [address]Utdzljevj/100 WBC (Bld)8.1 %Normal5.0-12.0UnSCCI Hospital LimaComment on above:Performed By: #### [id number] ####[facility] ([facility])[address] [place], [place] [address]Umczspcuzya (Bld) [#/Vol] 6.61 10*3/uLNormal1.60-7.60UnSCCI Hospital LimaComment on above: Performed By: #### [id number] ####[facility] ([facility])[address] [place], [place] [address]Twqlcnqimdk/100 WBC (Bld)82.5 %High40.0-72.0UnSCCI Hospital LimaComment on above:Performed By: #### [id number] ####[facility] ([facility])[address] [place] [address]NWYS (PER 100 WBCS) BY AUTOMATED COUNT0.0 %Nbgbqr0VnrnwpqhscSCCI Hospital LimaComment on above: Performed By: #### [id number] ####[facility] ([facility])[address] [place] [address]JPGJXZDUH (10*3/UL) IN BLOOD AUTOMATED TICUN963 10*3/uLNormal 150-400UnSCCI Hospital LimaComment on above:Performed By: #### [id number] ####[facility] ([facility])[address] [place] [address]EMZ (Bld) [#/Vol]3.11 10*6/uLLow3.80-5.00[facility] HospitalComment on above:Performed By: #### [id number] ####[facility] ([facility])[address] [place] [address]RTP (Bld) [#/Vol]8.02 10*3/uLNormal4.00-10.60UnSCCI Hospital LimaComment on above:Performed By: #### [id number] ####[facility] ([facility])[address] [place] [address]LG BRAIN PERFUSIONon 39-23-9309RB BRAIN PERFUSIONInvalid Interpretation CodeProMedica Toledo HospitalCT HEAD WO IV CONTRASTon 25-85-9009SS HEAD WO IV CONTRASTNormal [facility] HospitalCTA HEAD W IV CONTRASTon 02-11-4047MUB HEAD W IV CONTRASTNormalUniversTrinity Health System East CampusCTA NECK W IV CONTRASTon 01-40-9491IHU NECK W IV CONTRASTInvalid Interpretation CodeUnSCCI Hospital LimaMAGNESIUMon 06-02-1171Fzdsumzuo [Mass/Vol]3.1 mg/dLHigh1.9-2.7 [facility] HospitalComment on above:Performed By: #### [id number] ####[facility] ([facility])[address] [place] [address]HSKC GLUCOSE METER UNSOLICITED RESULTSon 23-46-2005Mtxwaiz [Mass/Vol]172 mg/gIGxsk11-818 [facility] HospitalComment on above:Order Comment: Waived Testing in the ED is performed under the ED CLIA certificate #[id number].Result Comment: [id number] By: #### [id number] ####[facility] ([facility])[address] [place] [address]Qcsmfbu [Mass/Vol]113 mg/sMLfbc61-203OxuogcshrpSCCI Hospital LimaComment on above:Order Comment: Waived Testing in the ED is performed under the ED CLIA certificate #[id number].Result Comment: [email or web address] Performed By: #### [id number] ####[facility] ([facility])[address] [place] [address]NFBPEJ BLOOD GAS WITH IONIZED CALCIUMon 55-35-4772Juhn excess Calc (BldV) [Moles/Vol]10.1 mmol/LNormalUnSCCI Hospital Lima Comment on above:Performed By: #### [id number] ####[facility] [id number] [place] [address] USACALCIUM IONIZED (MMOL/L) IN BLOOD1.18 mmol/L Normal1.15-1.33UnSCCI Hospital LimaComment on above:Performed By: #### [id number] ####[facility] [id number] [place] [address] [place] CO2 (BldV) [Partial pressure]62 mm[Hg]Tpdw01-78GxctosjszwSCCI Hospital LimaComment on above:Performed By: #### [id number] ####[facility] [id number] [place] [address] USAHCO3 (Bld) [Moles/Vol]37.5 mmol/L NormalUnSCCI Hospital LimaComment on above:Performed By: #### [id number] ####[facility] [id number] [place] [address] USAOxygen (BldV) [Partial pressure]49 mm[Hg]Zihr60-78OiscwrbhaxSCCI Hospital Lima Comment on above:Performed By: #### [id number] ####[facility] [id number] [place] [address] USAOXYGEN SATURATION (%) IN VENOUS BLOOD79.9 %High 65.0-75.0[facility] HospitalComment on above:Performed By: #### [id number] ####[facility] [id number] [place] [address] USAPH OF VENOUS BLOOD7.33Nwaojf3.31-7.41UnSCCI Hospital LimaComment on above:Performed By: #### [id number] ####[facility] [id number] [place] [address] UFP50nf 08-92-031181LymbfeYnksfsjfrc of [facility] Psoekb73QfihbtTeipvsqggyTrinity Health System East CampusAPTCopper Queen Community Hospital 74-16-8188THXRCEMOD PARTIAL THROMBOPLASTIN TIME IN PPP BY COAGULATION ASSAY91.2 ZopekutScdd35.0-35.0 [facility] HospitalComment on above:Order Comment: Check aPTT every 6 hours while on heparin infusion, or per protocol.Result Comment: Clinical significance of the APTT is questionable in the presence of heparin. Performed By: #### [id number] ####[facility] ([facility])[address] [place], [place] [address]YZUBYUXO BLOOD GAS WITH CO-OXIMETRYon 63-11-2390Vdac excess Calc (Bld) [Moles/Vol]8.6 mmol/LHigh-2.0-3.0UnS[facility] Hospital [place] Comment on above:Performed By: #### [id number] ####[facility] [id number] [place] [address] USACARBOXYHEMOGLOBIN/HEMOGLOBIN TOTAL % IN BLOOD 1.6 %Normal0.0-3.0[facility] HospitalComment on above:Performed By: #### [id number] ####[facility] [id number] [place] [address] USACO2 (Bld) [Partial pressure]47 mm[Hg]Ihumge17-35SxhpigkwmnSCCI Hospital LimaComment on above:Performed By: #### [id number] ####[facility] [id number] [place] [address] USADEOXYGENATED HEMOGLOBIN IN BLOOD2.3 %Normal1-5UnSCCI Hospital LimaComment on above:Performed By: #### [id number] ####[facility] [id number] [place] [address] [place] HCO3 (Bld) [Moles/Vol]33.4 mmol/LHigh21.0-28.0UnSCCI Hospital LimaComment on above:Performed By: #### [id number] ####[facility] [id number] [place] [address] USAHemoglobin (Bld) [Mass/Vol]9.4 g/dL Low11.7-17.4UnSCCI Hospital LimaComment on above:Performed By: #### [id number] ####[facility] [id number] [place] [address] [place] IFZ7FegnxnHvgljgtjjpTrinity Health System East CampusComment on above:Performed By: #### [id number] ####[facility] [id number] [place] [address] [place] METHEMOGLOBIN/100 IN BLOOD0.5 %Normal0.0-1.5Un[facility] [place] Comment on above:Performed By: #### [id number] ####[facility] [id number] [place] [address] USAOxygen (Bld) [Partial pressure]72 mm[Hg]Low 83-100UnSCCI Hospital LimaComment on above:Performed By: #### [id number] ####[facility] [id number] [place] [address] USAOXYGEN SATURATION (%) IN ARTERIAL BLOOD97.7 %Jjfuyl67.0-98.0UnSCCI Hospital LimaComment on above:Performed By: #### [id number] ####[facility] [id number] [place] [address] USAOXYGENATED HEMOGLOBIN IN BLOOD95.7 %High90.0-95.0UnSCCI Hospital LimaComment on above:Performed By: #### [id number] ####[facility] [id number] [place] [address] [place] pH (Bld)7.46 [pH]High7.35-7.45UnSCCI Hospital LimaComment on above:Performed By: #### [id number] ####[facility] [id number] [place] [address] USASOURCE OF OXYGENNasal cannulaNormalUniversity Cleveland Clinic Euclid HospitalComment on above:Performed By: #### [id number] ####[facility] [id number] [place] [address] USABASIC METABOLIC PANELon 02-03-2024 Anion gap [Moles/Vol]14 mmol/LNormal7-20Un[facility] [place] Comment on above:Performed By: #### [id number] ####[facility] ([facility])[address] [place], [place] [address]Vtkrypd [Mass/Vol]8.3 mg/dLLow8.6-10.3UnSCCI Hospital LimaComment on above:Performed By: #### [id number] ####[facility] ([facility])[address] [place], [place] [address]Wdrvwcyw [Moles/Vol]94 mmol/IPaz09-562OkzzskrcuhSCCI Hospital LimaComment on above:Performed By: #### [id number] ####[facility] ([facility])[address] [place], [place] [address]EY6 [Moles/Vol]31 mmol/ZTxbvps79-90ZsvomdyiixSCCI Hospital LimaComment on above:Performed By: #### [id number] ####[facility] ([facility])[address] [place], [place] [address]Njcwvaktyy [Mass/Vol]1.51 mg/dLHigh0.60-1.20UnSCCI Hospital LimaComment on above:Performed By: #### [id number] ####[facility] ([facility])[address] [place], [place] [address]RWBXQDENAZ FILTRATION RATE ML/MIN/1.73 SQ M.SFVTEEFGJ95.7 mL/min/1.73m*2Low>60.0UnSCCI Hospital LimaComment on above:Result Comment: [facility]???s estimated glomerular filtration rate (eGFR) will [...] anyone group of individuals.Performed By: #### [id number] ####[facility] ([facility])[address] [place], [place] [address]Cnmeqns [Mass/Vol]155 mg/qOLsxf65-091HackwrazwdSCCI Hospital LimaComment on above:Performed By: #### [id number] ####[facility] ([facility])[address] [place], [place] [address]Yexynawrg [Moles/Vol]4.0 mmol/LNormal3.5-5.1UnSCCI Hospital LimaComment on above:Performed By: #### [id number] ####[facility] ([facility])[address] [place], [place] [address]Geuwus [Moles/Vol]135 mmol/LLow 136-145UnSCCI Hospital LimaComment on above:Performed By: #### [id number] ####[facility] ([facility])[address] [place], [place] [address]Qwja nitrogen [Mass/Vol]19 mg/dLNormal7-25UnSCCI Hospital LimaComment on above:Performed By: #### [id number] ####[facility] ([facility])[address] [place], [place] [address]NSGL NITROGEN/CREATININE (MASS RATIO) IN SER/PLAS12.6Normal [facility] HospitalComment on above:Performed By: #### [id number] ####[facility] ([facility])[address] [place], [place] [address]Pxjlj gap [Moles/Vol]18 mmol/LNormal7-20UnSCCI Hospital LimaComment on above:Performed By: #### [id number] ####[facility] ([facility])[address] [place], [place] [address]Ghxnbgx [Mass/Vol]9.0 mg/dLNormal8.6-10.3UnSCCI Hospital LimaComment on above:Performed By: #### [id number] ####[facility] ([facility])[address] [place], [place] [address]Ayaumlsi [Moles/Vol]96 mmol/KDah23-950 [facility] HospitalComment on above:Performed By: #### [id number] ####[facility] ([facility])[address] [place], [place] [address]GV5 [Moles/Vol] 26 mmol/BFbpwfp08-60AbvkfqazmeSCCI Hospital LimaComment on above: Performed By: #### [id number] ####[facility] ([facility])[address] [place], [place] [address]Jzauyhpcwf [Mass/Vol]1.55 mg/dLHigh0.60-1.20UnSCCI Hospital LimaComment on above:Performed By: #### [id number] ####[facility] ([facility])[address] [place], [place] [address]QESOOESYXI FILTRATION RATE ML/MIN/1.73 SQ M.JWRKBMJCD76.7 mL/min/1.73m*2Low>60.0UnSCCI [facility] [place] Comment on above:Result Comment: The [facility]???s estimated glomerular filtration rate (eGFR) will [...] anyone group of individuals.Performed By: #### [id number] ####[facility] ([facility])[address] [place] [address]Tcevget [Mass/Vol]90 mg/cVOjxmbq92-013EwyumyycmaSCCI Hospital LimaComment on above:Performed By: #### [id number] ####[facility] ([facility])[address] [place] [address]Fmsnneawo [Moles/Vol]4.6 mmol/LNormal3.5-5.1UnSCCI Hospital LimaComment on above:Performed By: #### [id number] ####[facility] ([facility])[address] [place] [address]Ysrfsl [Moles/Vol]135 mmol/LLow 136-145UnSCCI Hospital LimaComment on above:Performed By: #### [id number] ####[facility] ([facility])[address] [place] [address]Zeez nitrogen [Mass/Vol]20 mg/dLNormal7-25UnSCCI Hospital LimaComment on above:Performed By: #### [id number] ####[facility] ([facility])[address] [place] [address]FZBW NITROGEN/CREATININE (MASS RATIO) IN SER/PLAS12.9Normal [facility] HospitalComment on above:Performed By: #### [id number] ####[facility] ([facility])[address] [place] [address]UCDYYRV, IONIZED on 25-23-2670KMAVDXV IONIZED (MMOL/L) IN BLOOD1.13 mmol/LLow1.15-1.33UnSCCI Hospital LimaComment on above:Performed By: #### CALCIUM, IONIZED ####[facility] [id number] [place] [address] USACBC WITH AUTO DIFFERENTIALon 54-06-9858Anahmhrtu (Bld) [#/Vol]0.02 10*3/uLNormal0.00-0.20 [facility] CenterComment on above:Performed By: #### [id number] ####[facility] (BEAKER)[address] [place], [place] [address]Wvwxsxseo/100 WBC (Bld)0.3 %Normal0.0-1.0UnSCCI Hospital LimaComment on above: Performed By: #### [id number] ####[facility] (BEAKER)[address] [place], [place] [address]Vvirlwdivpu (Bld) [#/Vol]0.22 10*3/uLNormal0.00-0.50 [facility] HospitalComment on above:Performed By: #### [id number] ####[facility] ([facility])[address] [place], [place] [address]Xqwofmpunob/100 WBC (Bld)3.4 %Normal0.0-6.0UnSCCI Hospital LimaComment on above: Performed By: #### [id number] ####[facility] ([facility])[address] [place], [place] [address]Cmvvvbducmu distribution width (RBC) [Ratio]16.0 %High 11.5-15.0UnSCCI Hospital LimaComment on above:Performed By: #### [id number] ####[facility] (BEAKER)[address] [place] [address] ERYTHROCYTE MEAN CORPUSCULAR HEMOGLOBIN CONCENTRATION (G/DL) BY GXFSTPKNK18.5 g/dLLow32.0-35.0UnSCCI Hospital LimaComment on above:Performed By: #### [id number] ####[facility] (BEAKER)[address] [place], [place] [address]Lcnzwgmrys (Bld) [Volume fraction]26.6 %Low36.0-48.0UnSCCI Hospital LimaComment on above:Performed By: #### [id number] ####[facility] (BEAKER)[address] [place], [place] [address]Dlwomuqtbd (Bld) [Mass/Vol]8.1 g/dLLow 12.0-15.0UnSCCI Hospital LimaComment on above:Performed By: #### [id number] ####[facility] [place], [place] [address]Licsrolk granulocytes (Bld) [#/Vol]0.05 10*3/uLNormal0.00-0.20UnSCCI Hospital LimaComment on above:Performed By: #### [id number] ####[facility] ([facility])[address] [place], [place] [address]Udquwlzz granulocytes/100 WBC (Bld)0.8 %Normal0.0-1.0UnSCCI Hospital LimaComment on above:Performed By: #### [id number] ####[facility] ([facility])[address] [place] [address] Lymphocytes (Bld) [#/Vol]0.45 10*3/uLLow1.20-4.00UnSCCI Hospital LimaComment on above:Performed By: #### [id number] ####[facility] ([facility])[address] [place] [place] [address]Bvpebshqhze/100 WBC (Bld)6.9 %Low 20.0-45.0UnSCCI Hospital LimaComment on above:Performed By: #### [id number] ####[facility] ([facility])[address] [place] [address]ZDH (RBC) [Entitic mass]27.9 neIldobg91.0-33.0UnSCCI Hospital [place] Comment on above:Performed By: #### [id number] ####[facility] ([facility])[address] [facility] [place] [place] [address]CVC (RBC) [Entitic vol]91.7 hWVldmdi19.0-98.0 [facility] HospitalComment on above:Performed By: #### [id number] ####[facility] ([facility])[address] [place] [address]Blynsxfga (Bld) [#/Vol]0.46 10*3/uLNormal0.10-1.00UnSCCI Hospital LimaComment on above:Performed By: #### [id number] ####[facility] ([facility])[address] [place] [address]Pbfzshxnl/100 WBC (Bld)7.1 %Normal5.0-12.0UnSCCI Hospital LimaComment on above:Performed By: #### [id number] ####[facility] ([facility])[address] [place] [address]Jdgfkczhxar (Bld) [#/Vol] 5.31 10*3/uLNormal1.60-7.60UnSCCI Hospital LimaComment on above: Performed By: #### [id number] ####[facility] ([facility])[address] [place] [address]Qeolayzzmjn/100 WBC (Bld)81.5 %High40.0-72.0UnSCCI Hospital LimaComment on above:Performed By: #### [id number] ####[facility] ([facility])[address] [place] [address]AIIW (PER 100 WBCS) BY AUTOMATED COUNT0.0 %Qwakbp0TsbisfvkqiSCCI Hospital LimaComment on above: Performed By: #### [id number] ####[facility] ([facility])[address] [place] [address]WFHZXAWJH (10*3/UL) IN BLOOD AUTOMATED [id number] 10*3/uLNormal 150-400UnSCCI Hospital LimaComment on above:Performed By: #### [id number] ####[facility] ([facility])[address] [place], [place] [address]OJP (Bld) [#/Vol]2.90 10*6/uLLow3.80-5.00UnSCCI Hospital LimaComment on above:Performed By: #### [id number] ####[facility] ([facility])[address] [place], [place] [address]HQP (Bld) [#/Vol]6.51 10*3/uLNormal4.00-10.60UnSCCI Hospital LimaComment on above:Performed By: #### [id number] ####[facility] ([facility])[address] [place], [place] [address]Cvzlzortx (Bld) [#/Vol] 0.02 10*3/uLNormal0.00-0.20UnSCCI Hospital LimaComment on above: Performed By: #### [id number] ####[facility] ([facility])[address] [place], [place] [address]Wuhwgpkwl/100 WBC (Bld)0.2 %Normal0.0-1.0UnSCCI Hospital LimaComment on above:Performed By: #### [id number] ####[facility] ([facility])[address] [place], [place] [address]Kqtcqilxndg (Bld) [#/Vol]0.33 10*3/uL Normal0.00-0.50UnSCCI Hospital LimaComment on above:Performed By: #### [id number] ####[facility] ([facility])[address] [place] [address] Eosinophils/100 WBC (Bld)3.8 %Normal0.0-6.0UnS[facility] [place] Comment on above:Performed By: #### [id number] ####[facility] (AKER)[address] [place], [place] [address]Lyxljmjiifw distribution width (RBC) [Ratio]16.2 % High11.5-15.0UnSCCI Hospital LimaComment on above:Performed By: #### [id number] ####[facility] (BEAKER)[address] [place] [address] ERYTHROCYTE MEAN CORPUSCULAR HEMOGLOBIN CONCENTRATION (G/DL) BY IZKYGKDBK12.4 g/dLLow32.0-35.0UnSCCI Hospital LimaComment on above:Performed By: #### [id number] ####[facility] (BEAKER)[address] [place], [place] [address]Ldeozizkta (Bld) [Volume fraction]30.9 %Low36.0-48.0UnSCCI Hospital LimaComment on above:Performed By: #### [id number] ####[facility] (BEAKER)[address] [place], [place] [address]Ialrvweqfx (Bld) [Mass/Vol]9.7 g/dLLow 12.0-15.0UnSCCI Hospital LimaComment on above:Performed By: #### [id number] ####[facility] ([facility])[address] [place], [place] [address]Sumruapj granulocytes (Bld) [#/Vol]0.06 10*3/uLNormal0.00-0.20UnSCCI Hospital LimaComment on above:Performed By: #### [id number] ####[facility] ([facility])[address] [place], [place] [address]Vcnwyeeg granulocytes/100 WBC (Bld)0.7 %Normal0.0-1.0UnSCCI Hospital LimaComment on above:Performed By: #### [id number] ####[facility] (BEAKER)[address] [place] [address] Lymphocytes (Bld) [#/Vol]1.07 10*3/uLLow1.20-4.00UnSCCI Hospital LimaComment on above:Performed By: #### [id number] ####[facility] (BEAKER)[address] [place], [place] [address]Sodldqymlwe/100 WBC (Bld)12.4 %Low 20.0-45.0UnSCCI Hospital LimaComment on above:Performed By: #### [id number] ####[facility] (BEAKER)[address] [place], [place] [address]GPS (RBC) [Entitic mass]28.0 doMimeta29.0-33.0[facility] Comment on above:Performed By: #### [id number] ####[facility] (BEAKER)[address] [place], [place] [address]PXW (RBC) [Entitic vol]89.0 xTAxxmgo04.0-98.0 [facility] HospitalComment on above:Performed By: #### [id number] ####[facility] (BEAKER)[address] [place] [address]Cekibfrss (Bld) [#/Vol]0.51 10*3/uLNormal0.10-1.00UnSCCI Hospital LimaComment on above:Performed By: #### [id number] ####[facility] ([facility])[address] [place] [address]Crtmnzbsz/100 WBC (Bld)5.9 %Normal5.0-12.0UnSCCI Hospital LimaComment on above:Performed By: #### [id number] ####[facility] ([facility])[address] [place] [address]Dvlojqabcry (Bld) [#/Vol] 6.63 10*3/uLNormal1.60-7.60UnSCCI Hospital LimaComment on above: Performed By: #### [id number] ####[facility] ([facility])[address] [place] [address]Ltjhoqxkaon/100 WBC (Bld)77.0 %High40.0-72.0UnSCCI Hospital LimaComment on above:Performed By: #### [id number] ####[facility] ([facility])[address] [place] [address]IRVK (PER 100 WBCS) BY AUTOMATED COUNT0.0 %Ibkctv4GddvttsjnnSCCI Hospital LimaComment on above: Performed By: #### [id number] ####[facility] (BEAKER)[address] [place] [address]QYJEXFLYV (10*3/UL) IN BLOOD AUTOMATED CGBSK099 10*3/uLNormal 150-400UnSCCI Hospital LimaComment on above:Performed By: #### [id number] ####[facility] (BEAKER)[address] [place] [address]GDA (Bld) [#/Vol]3.47 10*6/uLLow3.80-5.00UnSCCI Hospital LimaComment on above:Performed By: #### [id number] ####[facility] ([facility])[address] [place] [address]ZJJ (Bld) [#/Vol]8.62 10*3/uLNormal4.00-10.60UnSCCI Hospital LimaComment on above:Performed By: #### [id number] ####[facility] ([facility])[address] [place], [place] [address]DUOSIIKKKNVUZ METABOLIC PANELon 98-44-2089Saavrnc [Mass/Vol]3.5 g/dLNormal3.5-5.7UnSCCI Hospital LimaComment on above:Performed By: #### [id number] ####[facility] ([facility])[address] [place], [place] [address]KKU [Catalytic activity/Vol]96 U/L Nlexxi95-668AkgmnbelvaSCCI Hospital LimaComment on above:Performed By: #### [id number] ####[facility] ([facility])[address] [place], [place] [address]UAP [Catalytic activity/Vol]5 U/LLow7-52UnSCCI Hospital LimaComment on above:Performed By: #### [id number] ####[facility] ([facility])[address] [place], [place] [address]Jjobx gap [Moles/Vol]14 mmol/LNormal7-20UnSCCI Hospital LimaComment on above:Performed By: #### [id number] ####[facility] ([facility])[address] [place], [place] [address]PJM [Catalytic activity/Vol]11 U/LLow 13-39UnSCCI Hospital LimaComment on above:Performed By: #### [id number] ####[facility] ([facility])[address] [place], [place] [address]Soqxjrkaa [Mass/Vol]0.8 mg/dLNormal0.3-1.0UnSCCI Hospital LimaComment on above:Performed By: #### [id number] ####[facility] (BEAKER)[address] [place], [place] [address]Nbucdyf [Mass/Vol]9.2 mg/dLNormal8.6-10.3UnSCCI Hospital LimaComment on above:Performed By: #### [id number] ####[facility] (BEAKER)[address] [place], [place] [address]Pfvcsyjo [Moles/Vol]95 mmol/GZew33-045 [facility] HospitalComment on above:Performed By: #### [id number] ####[facility] (AKER)[address] [place], [place] [address]HJ2 [Moles/Vol] 31 mmol/DOffwmf45-38EcdqpgsmyqSCCI Hospital LimaComment on above: Performed By: #### [id number] ####[facility] ([facility])[address] [place], [place] [address]Cfqgkbfcqo [Mass/Vol]1.54 mg/dLHigh0.60-1.20UnSCCI Hospital LimaComment on above:Performed By: #### [id number] ####[facility] ([facility])[address] [place], [place] [address]OTIQJNNMYQ FILTRATION RATE ML/MIN/1.73 SQ M.KORLVKJLA59.9 mL/min/1.73m*2Low>60.0[facility] Comment on above:Result Comment: [facility]???s estimated glomerular filtration rate (eGFR) will [...] anyone group of individuals.Performed By: #### [id number] ####[facility] ([facility])[address] [place], [place] [address]Fbnhvzx [Mass/Vol]89 mg/aZLsuwki54-227PkddhytlinSCCI Hospital LimaComment on above:Performed By: #### [id number] ####[facility] ([facility])[address] [place], [place] [address]Svbyjzktl [Moles/Vol]4.1 mmol/LNormal3.5-5.1UnSCCI Hospital LimaComment on above:Performed By: #### [id number] ####[facility] ([facility])[address] [place], [place] [address]Dovnkjv [Mass/Vol]6.2 g/dLNormal 6.0-8.3UnSCCI Hospital LimaComment on above:Performed By: #### [id number] ####[facility] ([facility])[address] [place], [place] [address]Oyzvcm [Moles/Vol]136 mmol/XVkbpro085-295CwvblitpsdSCCI Hospital LimaComment on above:Performed By: #### [id number] ####[facility] ([facility])[address] [place], [place] [address]Vblp nitrogen [Mass/Vol]20 mg/dLNormal7-25UnSCCI Hospital LimaComment on above:Performed By: #### [id number] ####[facility] ([facility])[address] [place], [place] [address]EIPL NITROGEN/CREATININE (MASS RATIO) IN SER/PLAS13.0NormalUniversTrinity Health System East CampusComment on above: Performed By: #### [id number] ####[facility] ([facility])[address] [place], [place] [address]NKRQQFQua 52-83-8378BFECMTKNzaqjdGbysxlvwnw of [facility] Medical CenterCTA ABDOMEN PELVIS W IV CONTRASTon 12-24-4909NTS ABDOMEN PELVIS W IV CONTRASTNormal [facility] HospitalLACTIC ACID WITH 4 HOUR REFLEXon 02-03-2024 LACTATE (MMOL/L) IN SER/PLAS0.7 mmol/LNormal0.5-2.2UnSCCI Hospital LimaComment on above:Performed By: #### [id number] ####[facility] ([facility])[address] [place], [place] [address]ALIAXTA (MMOL/L) IN SER/PLAS1.4 mmol/L Normal0.5-2.2UnSCCI Hospital LimaComment on above:Performed By: #### [id number] ####[facility] ([facility])[address] [place] [address] MAGNESIUMon 25-27-3987Wsawzfufc [Mass/Vol]2.3 mg/dLNormal1.9-2.7UnSCCI Hospital LimaComment on above:Performed By: #### [id number] ####[facility] ([facility])[address] [place], [place] [address]Loisybwqy [Mass/Vol]2.3 mg/dLNormal1.9-2.7UnSCCI Hospital LimaComment on above:Performed By: #### [id number] ####[facility] ([facility])[address] [place] [address] NURSNOTEon 52-66-6106NFOMQIXILimmmxYkagbjwivq of [facility] Medical CenterPHOSPHORUS on 15-73-8993Dmwlvydyc [Mass/Vol]4.8 mg/dLNormal2.5-5.0UnSCCI Hospital LimaComment on above:Performed By: #### [id number] ####[facility] ([facility])[address] [place], [place] [address]ZKYG GLUCOSE METER UNSOLICITED RESULTS on 98-37-2787Bdmjljb [Mass/Vol]105 mg/xQIlnrrf26-101NmhjvhqoplSCCI Hospital LimaComment on above:Order Comment: Waived Testing in the ED is performed under the ED CLIA certificate #[id number].Result Comment: yralyea1Jstvnkzwz By: #### [id number] ####[facility] ([facility])[address] [place] [address] Glucose [Mass/Vol]110 mg/rFRuvm28-690BdcbflpxudSCCI Hospital LimaComment on above:Order Comment: Waived Testing in the ED is performed under the ED CLIA certificate #[id number].Result Comment: hmxghdk5Cphalkmhv By: #### [id number] ####[facility] ([facility])[address] [place], [place] [address]SBGPGSQAF, WHOLE BLOODon 71-93-6827Vpykvqeqw [Moles/Vol]4.2 mmol/LNormal3.5-5.1UnSCCI Hospital LimaComment on above:Performed By: #### POTASSIUM, WHOLE BLOOD ####[facility] [id number] [place] [address] USASODIUM, WHOLE BLOODon 10-13-5083AAUMJN, WHOLE VZOHO400Qyd028-516JyownmwagmSCCI Hospital LimaComment on above:Performed By: #### SODIUM, WHOLE BLOOD ####[facility] RES[facility] [id number] [facility] [address] USATROPONIN Ion 02-03-2024 Troponin I.cardiac [Mass/Vol]0.05 ng/mLHigh0.00-0.04UnSCCI Hospital LimaComment on above:Performed By: #### [id number] ####[facility] ([facility])[address] [place] [address]Pngibbpl I.cardiac [Mass/Vol]0.06 ng/mLHigh0.00-0.04UnSCCI Hospital LimaComment on above:Performed By: #### [id number] ####[facility] ([facility])[address] [place] [address] Troponin I.cardiac [Mass/Vol]0.05 ng/mLHigh0.00-0.04UnSCCI Hospital LimaComment on above:Performed By: #### [id number] ####[facility] ([facility])[address] [place] [address]RTTN AND SCREENon 75-63-6657ET SCREEN NegativeNormalUniversity Cleveland Clinic Euclid HospitalComment on above:Performed By: #### [id number] ####[facility],ABO group Nom (Bld)ONormalUnSCCI Hospital LimaComment on above:Performed By: #### [id number] ####[facility],RH TYPE IN BLOODPositiveNormalUniversTrinity Health System East CampusComment on above: Performed By: #### [id number] ####[facility],30on 33-86-853905IplvooVeljaikxjo of [facility] Fueplm35RmyflcTkxeinpkhrTrinity Health System East CampusARTERIAL BLOOD GAS WITH IONIZED CALCIUMon 85-07-6991Qrrw excess Calc (Bld) [Moles/Vol]3.2 mmol/LHigh-2.0-3.0UnSCCI Hospital LimaComment on above:Order Comment: Bipap 12/6Performed By: #### [id number] ####[facility] RES[facility] [id number] [place] [address] USACALCIUM IONIZED (MMOL/L) IN BLOOD1.19 mmol/L Normal1.15-1.33UnSCCI Hospital LimaComment on above:Order Comment: Bipap 12/6Performed By: #### [id number] ####[facility] [id number] [place] [address] USACO2 (Bld) [Partial pressure]45 mm[Hg]Normal 35-48UnSCCI Hospital LimaComment on above:Order Comment: Bipap 12/6Performed By: #### [id number] ####[facility] RESPIR[facility] [id number] [place] [address] NTBBJW403 %NormalUnSCCI Hospital LimaComment on above:Order Comment: Bipap 12/6Performed By: #### [id number] ####[facility] RESPIR[facility] [id number] [place] [address] USAHCO3 (Bld) [Moles/Vol] 28.5 mmol/LHigh21.0-28.0UnSCCI Hospital LimaComment on above: Order Comment: Bipap 12/6Performed By: #### [id number] ####[facility] RESPIR[facility] [id number] [place] [address] USAOxygen (Bld) [Partial pressure]187 mm[Hg]Dlag46-957XwrvglxmikSCCI Hospital LimaComment on above:Order Comment: Bipap 12/6Performed By: #### [id number] ####[facility] RESPIR[facility] [id number] [place] [address] USAOXYGEN SATURATION (%) IN ARTERIAL AEQJD643.0 % High94.0-98.0UnSCCI Hospital LimaComment on above:Order Comment: Bipap 12/6Performed By: #### [id number] ####[facility] RES[facility] [id number] [place] [address] USAPEEP6 kfX3LIlsbecTecagrbmbaSalem City Hospital Comment on above:Order Comment: Bipap 12/6Performed By: #### [id number] ####[facility] RESPIR[facility] [id number] [place] [address] USApH (Bld)7.41 [pH]Normal 7.35-7.45UnSCCI Hospital LimaComment on above:Order Comment: Bipap 12/6Performed By: #### [id number] ####[facility] RESPIR[facility] [id number] [place] [address] USARESPIRATORY YSDB49LenqndIkftcnozesSalem City HospitalComment on above:Order Comment: Bipap 12/6Performed By: #### [id number] ####[facility] RESPIR[facility] [id number] [place] [address] USASOURCE OF OXYGENBi-PAPNormalUniversTrinity Health System East CampusComment on above:Order Comment: Bipap 12/6Performed By: #### [id number] ####[facility] RESPIR[facility] [id number] [place] [address] USAB-TYPE NATRIURETIC PEPTIDEon 02-02-2024 Natriuretic peptide B (Bld) [Mass/Vol]1109 pg/mLHigh0-100UnSCCI Hospital LimaComment on above:Performed By: #### [id number] ####[facility] HOSP[facility] LAB (BEAKER)[address] [place], [place] [address]YSL WITH AUTO DIFFERENTIALon 75-60-0039Nstavurkz (Bld) [#/Vol]0.03 10*3/uLNormal0.00-0.20UnSCCI Hospital LimaComment on above:Performed By: #### [id number] ####[facility] (BEAKER)[address] [place], [place] [address]Cvzsuekpp/100 WBC (Bld)0.4 %Normal 0.0-1.0UnSCCI Hospital LimaComment on above:Performed By: #### [id number] ####[facility] ([facility])[address] [place] [address] Eosinophils (Bld) [#/Vol]0.24 10*3/uLNormal0.00-0.50UnSCCI Hospital LimaComment on above:Performed By: #### [id number] ####[facility] ([facility])[address] [place], [place] [address]Nbetqlbjvvn/100 WBC (Bld)3.0 %Normal 0.0-6.0UnSCCI Hospital LimaComment on above:Performed By: #### [id number] ####[facility] ([facility])[address] [place] [address] Erythrocyte distribution width (RBC) [Ratio]16.5 %High11.5-15.0UnSCCI Hospital LimaComment on above:Performed By: #### [id number] ####[facility] ([facility])[address] [place], [place] [address]WLORMJSKCKL MEAN CORPUSCULAR HEMOGLOBIN CONCENTRATION (G/DL) BY FAYUFDAPD54.4 g/dLLow32.0-35.0 [facility] HospitalComment on above:Performed By: #### [id number] ####[facility] (BEAKER)[address] [place], [place] [address]Lvookqujbd (Bld) [Volume fraction]29.3 %Low36.0-48.0UnSCCI Hospital LimaComment on above:Performed By: #### [id number] ####[facility] (BEAKER)[address] [place], [place] [address]Zslgtduuft (Bld) [Mass/Vol]8.9 g/dLLow12.0-15.0UnSCCI Hospital LimaComment on above:Performed By: #### [id number] ####[facility] (BEAKER)[address] [place] [address]Qdspopts granulocytes (Bld) [#/Vol]0.07 10*3/uLNormal0.00-0.20Un[facility] Comment on above:Performed By: #### [id number] ####[facility] ([facility])[address] [place] [address]Ottiuctu granulocytes/100 WBC (Bld)0.9 %Normal 0.0-1.0UnSCCI Hospital LimaComment on above:Performed By: #### [id number] ####[facility] ([facility])[address] [place] [address] Lymphocytes (Bld) [#/Vol]1.34 10*3/uLNormal1.20-4.00UnSCCI Hospital LimaComment on above:Performed By: #### [id number] ####[facility] ([facility])[address] [place] [address]Zhddejtxahd/100 WBC (Bld)16.5 %Low 20.0-45.0UnSCCI Hospital LimaComment on above:Performed By: #### [id number] ####[facility] ([facility])[address] [place], [place] [address]PFI (RBC) [Entitic mass]28.2 xkJrolmm07.0-33.0UnS[facility] Comment on above:Performed By: #### [id number] ####[facility] (BEAKER)[address] [place] [facility] [address]COP (RBC) [Entitic vol]92.7 mHSmbmvw08.0-98.0 [facility] HospitalComment on above:Performed By: #### [id number] ####[facility] (BEAKER)[address] [place] [address]Wwspkkqeb (Bld) [#/Vol]0.52 10*3/uLNormal0.10-1.00UnSCCI Hospital LimaComment on above:Performed By: #### [id number] ####[facility] ([facility])[address] [place] [address]Tiquonmvo/100 WBC (Bld)6.4 %Normal5.0-12.0UnSCCI Hospital LimaComment on above:Performed By: #### [id number] ####[facility] ([facility])[address] [place] [address]Kodkskdcenr (Bld) [#/Vol] 5.91 10*3/uLNormal1.60-7.60UnSCCI Hospital LimaComment on above: Performed By: #### [id number] ####[facility] ([facility])[address] [place] [address]Kpdeuwdrzyn/100 WBC (Bld)72.8 %High40.0-72.0UnSCCI Hospital LimaComment on above:Performed By: #### [id number] ####[facility] ([facility])[address] [place] [address]DMYZ (PER 100 WBCS) BY AUTOMATED COUNT0.0 %Aybvuj9FdakjjlticSCCI Hospital LimaComment on above: Performed By: #### [id number] ####[facility] ([facility])[address] [place] [address]XXHEJGHJO (10*3/UL) IN BLOOD AUTOMATED [id number] 10*3/uLNormal 150-400UnSCCI Hospital LimaComment on above:Performed By: #### [id number] ####[facility] (BEAKER)[address] [place], [place] [address]EMI (Bld) [#/Vol]3.16 10*6/uLLow3.80-5.00UnSCCI Hospital LimaComment on above:Performed By: #### [id number] ####[facility] (BEAKER)[address] [place], [place] [address]HUF (Bld) [#/Vol]8.11 10*3/uLNormal4.00-10.60UnSCCI Hospital LimaComment on above:Performed By: #### [id number] ####[facility] ([facility])[address] [place], [place] [address]CVSFJTNVHOHDE METABOLIC PANELon 18-30-0812Dunyari [Mass/Vol]3.4 g/dLLow3.5-5.7UnSCCI Hospital LimaComment on above:Performed By: #### [id number] ####[facility] ([facility])[address] [place], [place] [address]EGU [Catalytic activity/Vol]90 U/L Mnkdpm38-382IztxnlyalhSCCI Hospital LimaComment on above:Performed By: #### [id number] ####[facility] ([facility])[address] [place], [place] [address]BKJ [Catalytic activity/Vol]5 U/LLow7-52UnSCCI Hospital LimaComment on above:Performed By: #### [id number] ####[facility] ([facility])[address] [place], [place] [address]Usheh gap [Moles/Vol]9 mmol/LNormal7-20UnSCCI Hospital LimaComment on above:Performed By: #### [id number] ####[facility] ([facility])[address] [place], [place] [address]HUG [Catalytic activity/Vol]11 U/LLow 13-39UnSCCI Hospital LimaComment on above:Performed By: #### [id number] ####[facility] ([facility])[address] [place], [place] [address]Iiprjegky [Mass/Vol]0.5 mg/dLNormal0.3-1.0UnSCCI Hospital LimaComment on above:Performed By: #### [id number] ####[facility] ([facility])[address] [place], [place] [address]Ulsfmln [Mass/Vol]8.3 mg/dLLow8.6-10.3UnSCCI Hospital LimaComment on above:Performed By: #### [id number] ####[facility] ([facility])[address] [place], [place] [address]Gmkzkiuv [Moles/Vol]101 mmol/LNormal 98-107UnSCCI Hospital LimaComment on above:Performed By: #### [id number] ####[facility] ([facility])[address] [place], [place] [address]YI8 [Moles/Vol]26 mmol/NNilvqy89-70CmvwbqvlhhSCCI Hospital LimaComment on above:Performed By: #### [id number] ####[facility] ([facility])[address] [place], [place] [address]Zizhnwdnwq [Mass/Vol]1.28 mg/dLHigh0.60-1.20UnSCCI Hospital LimaComment on above:Performed By: #### [id number] ####[facility] ([facility])[address] [place], [place] [address]HXMFCKKTLG FILTRATION RATE ML/MIN/1.73 SQ M.QTHFRWWGX36.4 mL/min/1.73m*2Low>60.0UnSCCI Hospital LimaComment on above:Result Comment: [facility]???s estimated glomerular filtration rate (eGFR) will [...] anyone group of individuals.Performed By: #### [id number] ####[facility] ([facility])[address] [place], [place] [address]Iiqasxn [Mass/Vol]95 mg/hMPlqagi52-993GxflhvbrtpSCCI Hospital LimaComment on above:Performed By: #### [id number] ####[facility] ([facility])[address] [place], [place] [address]Awrtrxfof [Moles/Vol]4.4 mmol/LNormal3.5-5.1UnSCCI Hospital LimaComment on above:Performed By: #### [id number] ####[facility] ([facility])[address] [place] [address]Qcoclma [Mass/Vol]5.7 g/dLLow 6.0-8.3UnSCCI Hospital LimaComment on above:Performed By: #### [id number] ####[facility] ([facility])[address] [place] [address]Wtoyqd [Moles/Vol]132 mmol/URaw285-275TbrngaaauvSCCI Hospital LimaComment on above:Performed By: #### [id number] ####[facility] ([facility])[address] [place], [place] [address]Dmso nitrogen [Mass/Vol]21 mg/dLNormal7-25UnSCCI Hospital LimaComment on above:Performed By: #### [id number] ####[facility] ([facility])[address] [place], [place] [address]ETSY NITROGEN/CREATININE (MASS RATIO) IN SER/PLAS16.4NormalUniversTrinity Health System East CampusComment on above: Performed By: #### [id number] ####[facility] ([facility])[address] [place] [address]QQAECBXvn 47-63-2274ANQKCFLIhatxiZarkmakvea [facility] CONSULTNormalUniversity of [place] Regional Medical CenterCONSULTNormalUniversity [facility] Clinic Euclid HospitalHPon 33-73-7751XNFntvwmEehvxfzlwf [facility] HPNormalUniversity [facility] Clinic Euclid HospitalLIPID PANELon 40-88-7586PZDI/HDL3.3 mg/dLNormalUniSalem City HospitalComment on above:Performed By: #### [id number] ####[facility] ([facility])[address] [place] [address] Cholesterol [Mass/Vol]148 mg/cGFemoje483-020HwrkwlzggsSCCI Hospital [place]ima Comment on above:Performed By: #### [id number] ####[facility] ([facility])[address] [place], [place] [address]Xzhodlkin [Mass/Vol]100 mg/aGUzbizy10-301GcbztcvoqaSCCI Hospital LimaComment on above:Result Comment: TRIGLYCERIDE REFERENCE RANGE:20 YEARS AND OLDER CARDIOVASCULAR RISKLESS THAN 150 mg/dL LOW [id number] TO 199 mg/dL BORDERLINE PGMC569 mg/dL AND GREATER HIGH RISKPerformed By: #### [id number] ####[facility] ([facility])[address] [place], [place] [address]Zigbevclj [Mass/Vol]83 mg/dLNormal0-160UnSCCI Hospital LimaComment on above:Performed By: #### [id number] ####[facility] ([facility])[address] [place], [place] [address]Zlxwyombo [Mass/Vol]45 mg/rMGplttl69-47XlhdatyizxSCCI Hospital LimaComment on above:Performed By: #### [id number] ####[facility] ([facility])[address] [place], [place] [address]QCG HDL CHOL. (LDL+VLDL)103Normal [facility] HospitalComment on above:Performed By: #### [id number] ####[facility] ([facility])[address] [place], [place] [address]FJWNX VLDL-C20 mg/dLNormal0-40UnSCCI Hospital LimaComment on above:Performed By: #### [id number] ####[facility] ([facility])[address] [place] [address] MAGNESIUMon 80-52-8136Ebkuubgnz [Mass/Vol]2.6 mg/dLNormal1.9-2.7UnSCCI Hospital LimaComment on above:Performed By: #### [id number] ####[facility] ([facility])[address] [place], [place] [address]WZMFKRPT COUNTon 34-06-7535PDKLEMOAW (10*3/UL) IN BLOOD AUTOMATED VTWKY083 10*3/sIFklebv681-260 [facility] HospitalComment on above:Performed By: #### [id number] ####[facility] ([facility] [place], [place] [address]WOSZ GLUCOSE METER UNSOLICITED RESULTSon 58-56-9162Mqklqkc [Mass/Vol]117 mg/dQEpcg46-267 [facility] HospitalComment on above:Order Comment: Waived Testing in the ED is performed under the ED CLIA certificate #[id number].Result Comment: shamarPerformed By: #### [id number] ####[facility] ([facility])[address] [place], [place] [address]Fvcifra [Mass/Vol]97 mg/lXAxfisx41-229ChbbhjbbnfSCCI Hospital LimaComment on above:Order Comment: Waived Testing in the ED is performed under the ED CLIA certificate #[id number].Result Comment: shamar Performed By: #### [id number] ####[facility] ([facility])[address] [place], [place] [address]Nafpajp [Mass/Vol]91 mg/yEImeknt10-792EdnockgqynSCCI Hospital LimaComment on above:Order Comment: Waived Testing in the ED is performed under the ED CLIA certificate #[id number].Result Comment: [email or web address] Performed By: #### [id number] ####[facility] ([facility])[address] [place], [place] [address]Ynhalus [Mass/Vol]93 mg/gCYhngmi92-066PcfbmjxjewSCCI Hospital LimaComment on above:Order Comment: Waived Testing in the ED is performed under the ED CLIA certificate #[id number].Result Comment: [email or web address] Performed By: #### [id number] ####[facility] ([facility])[address] [place], [place] [address]U9, FREEon 23-75-0727IPOPTQPEF (T4) FREE (NG/DL) IN SER/PLAS 1.61 ng/dLNormal0.71-1.85UnSCCI Hospital LimaComment on above: Performed By: #### [id number] ####[facility] ([facility])[address] [place], [place] [address]NSPAYRXV Ion 42-20-3564Epmjmcbg I.cardiac [Mass/Vol]0.06 ng/mLHigh0.00-0.04UnSCCI Hospital LimaComment on above:Performed By: #### [id number] ####[facility] ([facility])[address] [place] [address] Troponin I.cardiac [Mass/Vol]0.08 ng/mLHigh0.00-0.04UnSCCI Hospital LimaComment on above:Performed By: #### [id number] ####[facility] ([facility])[address] [place], [place] [address]Jzxftqrv I.cardiac [Mass/Vol]0.07 ng/mLHigh0.00-0.04UnSCCI Hospital LimaComment on above:Performed By: #### [id number] ####[facility] ([facility])[address] [place] [address] TSHon 83-65-4537ODZJDSCCPIX (MIU/L) IN SER/PLAS BY DETECTION LIMIT <= 0.05 MIU/L 5.42 mIU/LNormal0.34-5.60UnSCCI Hospital LimaComment on above: Performed By: #### [id number] ####[facility] ([facility])[address] [place] [id number] 99-92-460612Lgf patient is Moderately Stable - Low risk of patient condition declining or worsening The patient's goals for the shift include sleep/rest The clinical goals for the shift include VSS/restNormalUniversity [facility]30NormalUniversity [facility] Clinic [facility]uclid HospitalBASIC METABOLIC PANELon 93-56-8691Vhomg gap [Moles/Vol]8 mmol/LNormal7-20UnSCCI Hospital LimaComment on above:Performed By: #### [id number] ####[facility] ([facility])[address] [place], [place] [address]Oaywinp [Mass/Vol]8.0 mg/dLLow8.6-10.3 [facility] HospitalComment on above:Performed By: #### [id number] ####[facility] ([facility])[address] [place], [place] [address]Wrtvrivr [Moles/Vol]106 mmol/HTdattk97-600HolkbwrpecSCCI Hospital LimaComment on above:Performed By: #### [id number] ####[facility] ([facility])[address] [place], [place] [address]LF4 [Moles/Vol]28 mmol/RIvhlie37-63YsrkeycnjmSCCI Hospital LimaComment on above:Performed By: #### [id number] ####[facility] ([facility])[address] [place], [place] [address]Ajucyurgre [Mass/Vol]1.39 mg/dLHigh 0.60-1.20UnSCCI Hospital LimaComment on above:Performed By: #### [id number] ####[facility] ([facility])[address] [place], [place] [address]NPHNFCUMBO FILTRATION RATE ML/MIN/1.73 SQ M.IQBMRMZRX42.4 mL/min/1.73m*2Low>60.0UnSCCI Hospital LimaComment on above:Result Comment: The [facility]???s estimated glomerular filtration rate (eGFR) will [...] group of individuals. Performed By: #### [id number] ####[facility] ([facility])[address] [place], [place] [address]Flchjmv [Mass/Vol]91 mg/nAMccxsp90-060XzgfslnzlpSCCI Hospital LimaComment on above:Performed By: #### [id number] ####[facility] ([facility])[address] [place], [place] [address]Dkrlshoyl [Moles/Vol]4.3 mmol/LNormal 3.5-5.1UnSCCI Hospital LimaComment on above:Performed By: #### [id number] ####[facility] ([facility])[address] [place] [address]Sqlune [Moles/Vol]138 mmol/SEufsyi874-833ZloojzuyarSCCI Hospital LimaComment on above:Performed By: #### [id number] ####[facility] ([facility])[address] [place], [place] [address]Iqsp nitrogen [Mass/Vol]29 mg/dLHigh7-25UnSCCI Hospital LimaComment on above:Performed By: #### [id number] ####[facility] ([facility])[address] [place], [place] [address]IOEP NITROGEN/CREATININE (MASS RATIO) IN SER/PLAS20.9NormalUniversTrinity Health System East CampusComment on above: Performed By: #### [id number] ####[facility] ([facility])[address] [place], [place] [address]SKT WITH AUTO DIFFERENTIALon 35-00-2540Luadsjovg (Bld) [#/Vol]0.03 10*3/uLNormal0.00-0.20UnSCCI Hospital LimaComment on above: Performed By: #### [id number] ####[facility] ([facility])[address] [place], [place] [address]Nkpbrclol/100 WBC (Bld)0.3 %Normal0.0-1.0UnSCCI Hospital LimaComment on above:Performed By: #### [id number] ####[facility] ([facility])[address] [place], [place] [address]Heeruxqsblm (Bld) [#/Vol]0.19 10*3/uL Normal0.00-0.50UnSCCI Hospital LimaComment on above:Performed By: #### [id number] ####[facility] ([facility])[address] [address] Eosinophils/100 WBC (Bld)1.8 %Normal0.0-6.0UnSCCI Hospital [place] Comment on above:Performed By: #### [id number] ####[facility] ([facility])[address] [place], [place] [address]Ltbdftrysfw distribution width (RBC) [Ratio]17.0 % High11.5-15.0UnSCCI Hospital LimaComment on above:Performed By: #### [id number] ####[facility] ([facility])[address] [place] [address] ERYTHROCYTE MEAN CORPUSCULAR HEMOGLOBIN CONCENTRATION (G/DL) BY YNHEETCQO91.5 g/dLLow32.0-35.0UnSCCI Hospital LimaComment on above:Performed By: #### [id number] ####[facility] ([facility])[address] [place], [place] [address]Ruqlifczfd (Bld) [Volume fraction]27.2 %Low36.0-48.0UnSCCI Hospital LimaComment on above:Performed By: #### [id number] ####[facility] ([facility])[address] [place], [place] [address]Yervycanar (Bld) [Mass/Vol]8.3 g/dLLow 12.0-15.0UnSCCI Hospital LimaComment on above:Performed By: #### [id number] ####[facility] ([facility])[address] [place], [place] [address]Icqrqcfe granulocytes (Bld) [#/Vol]0.04 10*3/uLNormal0.00-0.20UnSCCI Hospital LimaComment on above:Performed By: #### [id number] ####[facility] ([facility])[address] [place], [place] [address]Oiavnksa granulocytes/100 WBC (Bld)0.4 %Normal0.0-1.0UnSCCI Hospital LimaComment on above:Performed By: #### [id number] ####[facility] ([facility])[address] [place] [address] Lymphocytes (Bld) [#/Vol]1.44 10*3/uLNormal1.20-4.00UnSCCI Hospital LimaComment on above:Performed By: #### [id number] ####[facility] ([facility])[address] [place] [address]Tunvitryojf/100 WBC (Bld)13.6 %Low 20.0-45.0UnSCCI Hospital LimaComment on above:Performed By: #### [id number] ####[facility] ([facility])[address] [place] [address]CLV (RBC) [Entitic mass]28.3 hkGpixwi35.0-33.0UnSCCI Hospital [place] Comment on above:Performed By: #### [id number] ####[facility] ([facility])[address] [place], [place] [address]SUJ (RBC) [Entitic vol]92.8 tGYcefwr79.0-98.0 [facility] HospitalComment on above:Performed By: #### [id number] ####[facility] ([facility])[address] [place], [place] [address]Xuwekozbs (Bld) [#/Vol]0.73 10*3/uLNormal0.10-1.00UnSCCI Hospital LimaComment on above:Performed By: #### [id number] ####[facility] ([facility])[address] [place], [place] [address]Gsuopsrnq/100 WBC (Bld)6.9 %Normal5.0-12.0UnSCCI Hospital LimaComment on above:Performed By: #### [id number] ####[facility] ([facility])[address] [place], [place] [address]Qrjfubzvrcc (Bld) [#/Vol] 8.12 10*3/uLHigh1.60-7.60UnSCCI Hospital LimaComment on above: Performed By: #### [id number] ####[facility] ([facility])[address] [place], [place] [address]Ohbeqnhbfhz/100 WBC (Bld)77.0 %High40.0-72.0UnSCCI Hospital LimaComment on above:Performed By: #### [id number] ####[facility] ([facility])[address] [place] [address]VGZK (PER 100 WBCS) BY AUTOMATED COUNT0.0 %Qwoaaz7BkksktmddxSCCI Hospital LimaComment on above: Performed By: #### [id number] ####[facility] ([facility])[address] [place] [address]CZOIBXUYL (10*3/UL) IN BLOOD AUTOMATED [id number] 10*3/uLLow 150-400UnSCCI Hospital LimaComment on above:Performed By: #### [id number] ####[facility] ([facility])[address] [place] [address]BOE (Bld) [#/Vol]2.93 10*6/uLLow3.80-5.00UnSCCI Hospital LimaComment on above:Performed By: #### [id number] ####[facility] ([facility])[address] [place] [address]YYF (Bld) [#/Vol]10.55 10*3/uLNormal4.00-10.60UnSCCI Hospital LimaComment on above:Performed By: #### [id number] ####[facility] ([facility])[address] [place] [address]QSot 98-48-9884UJZibzae [facility] HospitalMAGNESIUMon 50-35-7763Cgijnchzl [Mass/Vol]2.2 mg/dLNormal1.9-2.7UnSCCI Hospital LimaComment on above:Performed By: #### [id number] ####[facility] ([facility])[address] [place] [address]JEOQVTUWgy 06-26-5781QZBSJZHHOmxsoqQfpibarjfw of [facility] NURSNOTENormalUniversTrinity Health System East CampusOrders Onlyon 13-83-2584Oofbah [id number] Shayy Maynard 1945 F Date Provider Department Center 01/31/2024 Eusebia-[facility] [place] Count No family history on fileNormalUniversity [facility] Clinic Euclid HospitalPHOSPHORUSon 18-45-5625Vqfziwghd [Mass/Vol]3.3 mg/dLNormal2.5-5.0UnSCCI Hospital LimaComment on above:Performed By: #### [id number] ####[facility] ([facility])[address] [place], [place] [address]SAEB GLUCOSE METER UNSOLICITED RESULTS on 64-84-8294Gmjsizq [Mass/Vol]210 mg/rBSaqr11-896PhzuazvlxlSCCI Hospital LimaComment on above:Order Comment: Waived Testing in the ED is performed under the ED CLIA certificate #[id number].Result Comment: wyranoj5Lftrhgvjm By: #### [id number] ####[facility] ([facility])[address] [place] [address] Glucose [Mass/Vol]118 mg/lLKpap87-636BmutlypfwuSCCI Hospital LimaComment on above:Order Comment: Waived Testing in the ED is performed under the ED CLIA certificate #[id number].Result Comment: [id number] By: #### [id number] ####[facility] ([facility])[address] [place], [place] [address]TJIJI METABOLIC PANELon 38-35-6704Ffgtw gap [Moles/Vol]7 mmol/LNormal7-20UnSCCI Hospital LimaComment on above:Performed By: #### [id number] ####[facility] ([facility])[address] [place], [place] [address]Rztahde [Mass/Vol]8.0 mg/dLLow8.6-10.3 [facility] HospitalComment on above:Performed By: #### [id number] ####[facility] ([facility])[address] [place], [place] [address]Edpqvtxi [Moles/Vol]107 mmol/NDmmqxp63-256ScvxbwqbsqSCCI Hospital LimaComment on above:Performed By: #### [id number] ####[facility] ([facility])[address] [place] [address]HF4 [Moles/Vol]27 mmol/WFfqrcj53-15YqtlviamfpSCCI Hospital LimaComment on above:Performed By: #### [id number] ####[facility] ([facility])[address] [place] [address]Txhfxlcgpw [Mass/Vol]1.54 mg/dLHigh 0.60-1.20UnSCCI Hospital LimaComment on above:Performed By: #### [id number] ####[facility] ([facility])[address] [place], [place] [address]IAIBUCLLAQ FILTRATION RATE ML/MIN/1.73 SQ M.DJWXLNAWP75.9 mL/min/1.73m*2Low>60.0UnSCCI Hospital LimaComment on above:Result Comment: The [facility]???s estimated glomerular filtration rate (eGFR) will [...] group of individuals. Performed By: #### [id number] ####[facility] ([facility])[address] [place] [address]Yrqitvu [Mass/Vol]124 mg/wHKsht08-084KbbsablcoxSCCI Hospital LimaComment on above:Performed By: #### [id number] ####[facility] ([facility])[address] [place] [address]Spbvogzre [Moles/Vol]4.4 mmol/LNormal 3.5-5.1UnSCCI Hospital LimaComment on above:Performed By: #### [id number] ####[facility] ([facility])[address] [place], [place] [address]Kvvegz [Moles/Vol]137 mmol/YWrpoae782-080SsyffewybjSCCI Hospital LimaComment on above:Performed By: #### [id number] ####[facility] ([facility])[address] [place] [address]Btwl nitrogen [Mass/Vol]25 mg/dLNormal7-25UnSCCI Hospital LimaComment on above:Performed By: #### [id number] ####[facility] ([facility])[address] [place] [address]RDVJ NITROGEN/CREATININE (MASS RATIO) IN SER/PLAS16.2NormalUnSCCI Hospital LimaComment on above: Performed By: #### [id number] ####[facility] ([facility])[address] [place] [address]YYR WITH AUTO DIFFERENTIALon 13-27-4444Dkilvorzn (Bld) [#/Vol]0.02 10*3/uLNormal0.00-0.20UnSCCI Hospital LimaComment on above: Performed By: #### [id number] ####[facility] ([facility])[address] [place] [address]Syccehmxd/100 WBC (Bld)0.2 %Normal0.0-1.0UnSCCI Hospital LimaComment on above:Performed By: #### [id number] ####[facility] ([facility])[address] [place] [address]Krkvuzruljz (Bld) [#/Vol]0.06 10*3/uL Normal0.00-0.50UnSCCI Hospital LimaComment on above:Performed By: #### [id number] ####[facility] ([facility])[address] [place] [address] Eosinophils/100 WBC (Bld)0.5 %Normal0.0-6.0UnSCCI Hospital [place] Comment on above:Performed By: #### [id number] ####[facility] ([facility])[address] [place] [address]Wfxenwjgmyy distribution width (RBC) [Ratio]16.7 % High11.5-15.0UnSCCI Hospital LimaComment on above:Performed By: #### [id number] ####[facility] ([facility])[address] [place] [address] ERYTHROCYTE MEAN CORPUSCULAR HEMOGLOBIN CONCENTRATION (G/DL) BY QHLMQEXIR82.5 g/dLLow32.0-35.0UnSCCI Hospital LimaComment on above:Performed By: #### [id number] ####[facility] ([facility])[address] [place], [place] [address]Pugpywryma (Bld) [Volume fraction]29.8 %Low36.0-48.0UnSCCI Hospital LimaComment on above:Performed By: #### [id number] ####[facility] ([facility])[address] [place], [place] [address]Jjmpwvriqq (Bld) [Mass/Vol]9.1 g/dLLow 12.0-15.0UnSCCI Hospital LimaComment on above:Performed By: #### [id number] ####[facility] ([facility])[address] [place], [place] [address]Ckthgvoq granulocytes (Bld) [#/Vol]0.07 10*3/uLNormal0.00-0.20UnSCCI Hospital LimaComment on above:Performed By: #### [id number] ####[facility] ([facility])[address] [place], [place] [address]Pcpqsajr granulocytes/100 WBC (Bld)0.5 %Normal0.0-1.0UnSCCI Hospital LimaComment on above:Performed By: #### [id number] ####[facility] ([facility])[address] [place] [address] Lymphocytes (Bld) [#/Vol]1.15 10*3/uLLow1.20-4.00UnSCCI Hospital LimaComment on above:Performed By: #### [id number] ####[facility] ([facility])[address] [place], [place] [address]Iqzpapeplvl/100 WBC (Bld)8.6 %Low 20.0-45.0UnSCCI Hospital LimaComment on above:Performed By: #### [id number] ####[facility] [place] [address]MET (RBC) [Entitic mass]28.4 lhYjsddy30.0-33.0UnSCCI [facility] [place] Comment on above:Performed By: #### [id number] ####[facility] ([facility])[address] [place] [address]CQB (RBC) [Entitic vol]93.1 cFFudiem32.0-98.0 [facility] HospitalComment on above:Performed By: #### [id number] ####[facility] ([facility])[address] [place] [address]Aewwslyij (Bld) [#/Vol]0.80 10*3/uLNormal0.10-1.00UnSCCI Hospital LimaComment on above:Performed By: #### [id number] ####[facility] ([facility])[address] [place], [place] [address]Chuhpsnwy/100 WBC (Bld)6.0 %Normal5.0-12.0UnSCCI Hospital LimaComment on above:Performed By: #### [id number] ####[facility] ([facility])[address] [place] [address]Vjbzwlpuxzn (Bld) [#/Vol] 11.20 10*3/uLHigh1.60-7.60UnSCCI Hospital LimaComment on above: Performed By: #### [id number] ####[facility] ([facility] [place] [address]Ppxvlytikee/100 WBC (Bld)84.2 %High40.0-72.0UnSCCI Hospital LimaComment on above:Performed By: #### [id number] ####[facility] ([facility])[address] [place] [address]HVGN (PER 100 WBCS) BY AUTOMATED COUNT0.0 %Lemqsk9HtvcniwodgSCCI Hospital LimaComment on above: Performed By: #### [id number] ####[facility] ([facility])[address] [place] [address]CXNXZIGRH (10*3/UL) IN BLOOD AUTOMATED [id number] 10*3/uLNormal 150-400UnSCCI Hospital LimaComment on above:Performed By: #### [id number] ####[facility] ([facility])[address] [place] [address]TSL (Bld) [#/Vol]3.20 10*6/uLLow3.80-5.00UnSCCI Hospital LimaComment on above:Performed By: #### [id number] ####[facility] ([facility])[address] [place] [address]GGO (Bld) [#/Vol]13.30 10*3/uLHigh4.00-10.60UnSCCI Hospital LimaComment on above:Performed By: #### [id number] ####[facility] ([facility])[address] [place] [address]EApw 85-60-1653DFPwpdir [facility] HospitalMAGNESIUMon 97-76-7552Ckfuqjalf [Mass/Vol]2.4 mg/dLNormal1.9-2.7UnSCCI Hospital LimaComment on above:Performed By: #### [id number] ####[facility] ([facility])[address] [place] [address]VYGWSLMQFVxn 48-59-0769Yapuyfkon [Mass/Vol]3.6 mg/dLNormal2.5-5.0UnSCCI Hospital LimaComment on above:Performed By: #### [id number] ####[facility] ([facility])[address] [place] [address]OGZL GLUCOSE METER UNSOLICITED RESULTSon 44-55-3243Nbnlppj [Mass/Vol]271 mg/bGMpcl89-222DehdbpiiwySCCI Hospital LimaComment on above:Order Comment: Waived Testing in the ED is performed under the ED CLIA certificate #[id number].Result Comment: [email or web address] Performed By: #### [id number] ####[facility] ([facility])[address] [place], [place] [address]Kacevvq [Mass/Vol]130 mg/gDLlli81-664FcmhvgbnkkSCCI Hospital LimaComment on above:Order Comment: Waived Testing in the ED is performed under the ED CLIA certificate #[id number].Result Comment: [email or web address] Performed By: #### [id number] ####[facility] ([facility])[address] [place], [place] [address]Ujhzbbd [Mass/Vol]166 mg/sCVjyz36-044FagrmcehyySCCI Hospital LimaComment on above:Order Comment: Waived Testing in the ED is performed under the ED CLIA certificate #[id number].Result Comment: [email or web address] Performed By: #### [id number] ####[facility] ([facility])[address] [place], [place] [address]Mldefba [Mass/Vol]151 mg/eLWvlp81-137MueghjbkkvProMedica Toledo HospitalComment on above:Order Comment: Waived Testing in the ED is performed under the ED CLIA certificate #[id number].Result Comment: [id number] Performed By: #### [id number] ####[facility] (BEAKER)[address] [place], [place] [address]Ihxpkzd [Mass/Vol]134 mg/mUZgwr57-790XduxyavyusSCCI Hospital LimaComment on above:Order Comment: Waived Testing in the ED is performed under the ED CLIA certificate #[id number].Result Comment: [id number] Performed By: #### [id number] ####[facility] (BEAKER)[address] [place], [place] [id number] [id number] patient is Moderately Stable - Low risk of patient condition declining or worsening The patient's goals for the shift include Pain Control The clinical goals for the shift include VSS, pain control, mobilityNormal [place] [address]NormalUniSalem City Hospital ARTERIAL BLOOD GAS WITH CO-OXIMETRYon 68-77-6586Paep excess Calc (Bld) [Moles/Vol]0.2 mmol/LNormal-2.0-3.0[facility] HospitalComment on above:Performed By: #### [id number] ####[facility] [id number] [place] [address] USACARBOXYHEMOGLOBIN/HEMOGLOBIN TOTAL % IN BLOOD1.4 %Normal 0.0-3.0UnSCCI Hospital LimaComment on above:Performed By: #### [id number] ####[facility] [id number] [place] [address] USACO2 (Bld) [Partial pressure]38 mm[Hg]Mnykfv99-66HukjwtdekoProMedica Toledo Hospital Comment on above:Performed By: #### [id number] ####[facility] [id number] [place] [address] USADEOXYGENATED HEMOGLOBIN IN BLOOD0.4 %Low1-5 [facility] HospitalComment on above:Performed By: #### [id number] ####[facility] [id number] [place] [address] USAHCO3 (Bld) [Moles/Vol]24.6 mmol/VAxyoaq02.0-28.0[facility] HospitalComment on above:Performed By: #### [id number] ####[facility] [id number] [place] [address] USAHemoglobin (Bld) [Mass/Vol]10.5 g/dLLow11.7-17.4 [facility] HospitalComment on above:Performed By: #### [id number] ####[facility] [id number] [place] [address] VKEVAL1Butymm [facility] HospitalComment on above:Performed By: #### [id number] ####[facility] [id number] [place] [address] [place] METHEMOGLOBIN/100 IN BLOOD0.7 %Normal0.0-1.5UnSCCI Hospital Lima Comment on above:Performed By: #### [id number] ####[facility] [id number] [place] [address] USAOxygen (Bld) [Partial pressure]116 mm[Hg]High 83-100UnSCCI Hospital LimaComment on above:Performed By: #### [id number] ####[facility] [id number] [facility] [address] USAOXYGEN SATURATION (%) IN ARTERIAL BLOOD99.6 %High94.0-98.0UnSCCI Hospital LimaComment on above:Performed By: #### [id number] ####[facility] [id number] [facility] [place] [address] USAOXYGENATED HEMOGLOBIN IN BLOOD97.5 %High90.0-95.0UnSCCI Hospital LimaComment on above:Performed By: #### [id number] ####[facility] [id number] [place] [address] [facility] pH (Bld)7.42 [pH]Normal7.35-7.45UnSCCI Hospital LimaComment on above:Performed By: #### [id number] ####[facility] [id number] [facility] [place] [address] USASOURCE OF OXYGENNasal cannulaNormalUniversity Cleveland Clinic Euclid HospitalComment on above:Performed By: #### [id number] ####[facility] [id number] [facility] [place] [address] USAARTERIAL BLOOD GAS WITH IONIZED CALCIUMon 19-46-5690Tcul excess Calc (Bld) [Moles/Vol]-0.6000 mmol/LNormal -2.0-3.0UnSCCI Hospital LimaComment on above:Performed By: #### [id number] ####[facility] [id number] [facility] [place] [address] [place] CALCIUM IONIZED (MMOL/L) IN BLOOD1.19 mmol/LNormal1.15-1.33UnSCCI Hospital LimaComment on above:Performed By: #### [id number] ####[facility] [id number] [place] [address] USACO2 (Bld) [Partial pressure]46 mm[Hg]Hdmyyz02-39NydbjkomrsSCCI Hospital LimaComment on above:Performed By: #### [id number] ####[facility] [id number] [place] [address] USAHCO3 (Bld) [Moles/Vol]25.4 mmol/LQzmfkp64.0-28.0UnSCCI Hospital LimaComment on above:Performed By: #### [id number] ####[facility] [id number] [place] [address] EKKTHA1EiymmxEfbbcyvhohSalem City HospitalComment on above:Performed By: #### [id number] ####[facility] [id number] [place] [address] USAOxygen (Bld) [Partial pressure]97 mm[Hg]Jtffue24-139BgoypzxzqxSCCI Hospital LimaComment on above:Performed By: #### [id number] ####[facility] [id number] [place] [address] USAOXYGEN SATURATION (%) IN ARTERIAL BLOOD99.4 %High94.0-98.0UnSCCI Hospital LimaComment on above:Performed By: #### [id number] ####[facility] [id number] [place] [address] USApH (Bld)7.35 [pH]Normal 7.35-7.45UnSCCI Hospital LimaComment on above:Performed By: #### [id number] ####[facility] [id number] [place] [address] USASOURCE OF OXYGENNasal cannulaNormalUniSalem City HospitalComment on above:Performed By: #### [id number] ####[facility] [id number] [place] [address] USABASIC METABOLIC PANELon 89-41-1935Qaacb gap [Moles/Vol]11 mmol/LNormal7-20UnSCCI Hospital LimaComment on above:Performed By: #### [id number] ####[facility] (BEAKER)[address] [place] [address] Calcium [Mass/Vol]8.0 mg/dLLow8.6-10.3UnSCCI Hospital LimaComment on above:Performed By: #### [id number] ####[facility] ([facility])[address] [place] [address]Qtgeurwz [Moles/Vol]105 mmol/LPnbumm07-031RdltwkqbsbSCCI Hospital LimaComment on above:Performed By: #### [id number] ####[facility] ([facility])[address] [place] [address]LG9 [Moles/Vol]25 mmol/LNormal 21-31UnSCCI Hospital LimaComment on above:Performed By: #### [id number] ####[facility] ([facility])[address] [place], [place] [address]Lltvssdwyq [Mass/Vol]1.18 mg/dLNormal0.60-1.20UnSCCI Hospital LimaComment on above:Performed By: #### [id number] ####[facility] ([facility])[address] [place], [place] [address]NGNGGQRGTF FILTRATION RATE ML/MIN/1.73 SQ M.DOSRCQTNI10.7 mL/min/1.73m*2Low>60.0UnSCCI Hospital LimaComment on above:Result Comment: The [facility]???s estimated glomerular filtration rate (eGFR) will [...] anyone group of individuals.Performed By: #### [id number] ####[facility] ([facility])[address] [place], [place] [address]Qeqsepc [Mass/Vol]204 mg/lFAvkx98-520LtiniauwldSCCI Hospital LimaComment on above:Performed By: #### [id number] ####[facility] (BEAKER)[address] [place] [address]Qsnsutgqu [Moles/Vol]3.8 mmol/L Normal3.5-5.1UnSCCI Hospital LimaComment on above:Performed By: #### [id number] ####[facility] (BEAKER)[address] [place] [address] Sodium [Moles/Vol]137 mmol/JGeatst556-170TnqaenzehaSCCI Hospital Lima Comment on above:Performed By: #### [id number] ####[facility] ([facility])[address] [place] [address]Dszf nitrogen [Mass/Vol]21 mg/dLNormal7-25 [facility] HospitalComment on above:Performed By: #### [id number] ####[facility] ([facility])[address] [place] [address]VIDA NITROGEN/CREATININE (MASS RATIO) IN SER/PLAS17.8NormalUniversTrinity Health System East CampusComment on above:Performed By: #### [id number] ####[facility] ([facility])[address] [place] [address]LGIPIVE, IONIZEDon 17-49-8121YQEUENP IONIZED (MMOL/L) IN BLOOD1.14 mmol/LLow1.15-1.33UnSCCI Hospital LimaComment on above:Performed By: #### [id number] ####[facility] [id number] [place] [address] USACALCIUM IONIZED (MMOL/L) IN BLOOD1.19 mmol/L Normal1.15-1.33UnSCCI Hospital LimaComment on above:Performed By: #### CALCIUM, IONIZED ####[facility] [id number] [place] [address] USACBCon 77-30-2102Oqmjdctuabg distribution width (RBC) [Ratio]16.1 %High 11.5-15.0UnSCCI Hospital LimaComment on above:Performed By: #### [id number] ####[facility] (BEAKER)[address] [place] [address] ERYTHROCYTE MEAN CORPUSCULAR HEMOGLOBIN CONCENTRATION (G/DL) BY TMVPBTOBF29.2 g/wZBvzpdg03.0-35.0UnSCCI Hospital LimaComment on above:Performed By: #### [id number] ####[facility] ([facility])[address] [place] [address]Ehlfitifgr (Bld) [Volume fraction]30.7 %Low36.0-48.0UnSCCI Hospital LimaComment on above:Performed By: #### [id number] ####[facility] ([facility])[address] [place] [address]Yhiscokuxc (Bld) [Mass/Vol]9.9 g/dLLow 12.0-15.0UnSCCI Hospital LimaComment on above:Performed By: #### [id number] ####[facility] ([facility])[address] [place] [address]JFP (RBC) [Entitic mass]28.6 ocNgjzhj67.0-33.0UnSCCI Hospital LimaComment on above:Performed By: #### [id number] ####[facility] ([facility])[address] [place] [address]VGY (RBC) [Entitic vol]88.7 uLAlwlzm47.0-98.0UnSCCI Hospital LimaComment on above:Performed By: #### [id number] ####[facility] ([facility])[address] [place] [address]PHEUFXTUU (10*3/UL) IN BLOOD AUTOMATED [id number] 10*3/xQHmv022-736RbsrhqdumsSCCI Hospital Lima Comment on above:Performed By: #### [id number] ####[facility] ([facility])[address] [place] [address]TRR (Bld) [#/Vol]3.46 10*6/uLLow3.80-5.00UnSCCI Hospital LimaComment on above:Performed By: #### [id number] ####[facility] ([facility])[address] [place] [address]LYL (Bld) [#/Vol]13.37 10*3/uLHigh4.00-10.60UnSCCI Hospital LimaComment on above: Performed By: #### [id number] ####[facility] ([facility])[address] [place] [address]RJN WITH AUTO DIFFERENTIALon 18-43-6573Mnsezipqj (Bld) [#/Vol]0.02 10*3/uLNormal0.00-0.20UnSCCI Hospital LimaComment on above:Performed By: #### [id number] ####[facility] ([facility])[address] [place], [place] [address]Gaafantzi/100 WBC (Bld)0.2 %Normal0.0-1.0UnSCCI Hospital LimaComment on above:Performed By: #### [id number] ####[facility] ([facility])[address] [place], [place] [address]Qkoqsfgogzl (Bld) [#/Vol]0.00 10*3/uL Normal0.00-0.50UnSCCI Hospital LimaComment on above:Performed By: #### [id number] ####[facility] ([facility])[address] [place] [address] Eosinophils/100 WBC (Bld)0.0 %Normal0.0-6.0UnSCCI Hospital [facility] Comment on above:Performed By: #### [id number] ####[facility] ([facility])[address] [place], [place] [address]Sniaxutlcvn distribution width (RBC) [Ratio]16.1 % High11.5-15.0UnSCCI Hospital LimaComment on above:Performed By: #### [id number] ####[facility] ([facility])[address] [place] [address] ERYTHROCYTE MEAN CORPUSCULAR HEMOGLOBIN CONCENTRATION (G/DL) BY AGZUZVDKZ37.0 g/hPLrtxcs67.0-35.0UnSCCI Hospital LimaComment on above:Performed By: #### [id number] ####[facility] (BEAKER)[address] [place], [place] [address]Ekjhnaohmc (Bld) [Volume fraction]32.5 %Low36.0-48.0UnSCCI Hospital LimaComment on above:Performed By: #### [id number] ####[facility] (BEAKER)[address] [place], [place] [address]Eppfarwgye (Bld) [Mass/Vol]10.4 g/dL Low12.0-15.0UnSCCI Hospital LimaComment on above:Performed By: #### [id number] ####[facility] (BEAKER)[address] [place] [address] Immature granulocytes (Bld) [#/Vol]0.05 10*3/uLNormal0.00-0.20UnSCCI Hospital LimaComment on above:Performed By: #### [id number] ####[facility] (BEAKER)[address] [place], [place] [address]Biyngpjf granulocytes/100 WBC (Bld)0.4 %Normal0.0-1.0UnSCCI Hospital LimaComment on above: Performed By: #### [id number] ####[facility] (BEAKER)[address] [place], [place] [address]Uqviavlpgog (Bld) [#/Vol]0.98 10*3/uLLow1.20-4.00UnSCCI Hospital LimaComment on above:Performed By: #### [id number] ####[facility] (BEAKER)[address] [place], [place] [address]Smhkbawueku/100 WBC (Bld) 7.8 %Low20.0-45.0UnSCCI Hospital LimaComment on above:Performed By: #### [id number] ####[facility] (BEAKER)[address] [place], [place] [address]WHI (RBC) [Entitic mass]28.3 jjHangxa26.0-33.0UnSCCI Hospital LimaComment on above:Performed By: #### [id number] ####[facility] ([facility])[address] [place] [facility] [address]MSZ (RBC) [Entitic vol]88.3 fLNormal 82.0-98.0UnSCCI Hospital LimaComment on above:Performed By: #### [id number] ####[facility] ([facility])[address] [facility] [place] [address] Monocytes (Bld) [#/Vol]0.54 10*3/uLNormal0.10-1.00UnSCCI Hospital LimaComment on above:Performed By: #### [id number] ####[facility] ([facility])[address] [place] [address]Abwlylksj/100 WBC (Bld)4.3 %Low 5.0-12.0UnSCCI Hospital LimaComment on above:Performed By: #### [id number] ####[facility] ([facility])[address] [place] [address] Neutrophils (Bld) [#/Vol]11.04 10*3/uLHigh1.60-7.60UnSCCI Hospital LimaComment on above:Performed By: #### [id number] ####[facility] ([facility])[address] [facility] [place] [address]Jjaugauqteb/100 WBC (Bld)87.3 %High 40.0-72.0UnSCCI Hospital LimaComment on above:Performed By: #### [id number] ####[facility] ([facility])[address] [place], [place] [address]BHPA (PER 100 WBCS) BY AUTOMATED COUNT0.0 %Waouam5ZxyqvwxvxkSCCI Hospital Lima Comment on above:Performed By: #### [id number] ####[facility] ([facility])[address] [facility] [facility] [place], [place] [address]VKADZTGUN (10*3/UL) IN BLOOD AUTOMATED [id number] 10*3/kMSfqdvy364-029WjfsfmnzcySCCI Hospital LimaComment on above: Performed By: #### [id number] ####[facility] (BEAKER)[address] [place] [address]IHB (Bld) [#/Vol]3.68 10*6/uLLow3.80-5.00UnSCCI Hospital LimaComment on above:Performed By: #### [id number] ####[facility] ([facility])[address] [place] [address]YYM (Bld) [#/Vol]12.63 10*3/uLHigh 4.00-10.60UnSCCI Hospital LimaComment on above:Performed By: #### [id number] ####[facility] ([facility])[address] [place] [address] Basophils (Bld) [#/Vol]0.01 10*3/uLNormal0.00-0.20UnSCCI Hospital LimaComment on above:Performed By: #### [id number] ####[facility] (BEAKER)[address] [place] [address]Cstblmgsx/100 WBC (Bld)0.1 %Normal 0.0-1.0UnSCCI Hospital LimaComment on above:Performed By: #### [id number] ####[facility] (BEAKER)[address] [place] [address] Eosinophils (Bld) [#/Vol]0.00 10*3/uLNormal0.00-0.50UnSCCI Hospital LimaComment on above:Performed By: #### [id number] ####[facility] (BEAKER)[address] [place] [address]Gkjqkdbmiey/100 WBC (Bld)0.0 %Normal 0.0-6.0UnSCCI Hospital LimaComment on above:Performed By: #### [id number] ####[facility] (BEAKER)[address] [place] [address] Erythrocyte distribution width (RBC) [Ratio]16.4 %High11.5-15.0UnSCCI Hospital LimaComment on above:Performed By: #### [id number] ####[facility] (BEAKER)[address] [place], [place] [address]XDFBSAEBLZR MEAN CORPUSCULAR HEMOGLOBIN CONCENTRATION (G/DL) BY PWIFNMLKB30.6 g/dLLow32.0-35.0 [facility] HospitalComment on above:Performed By: #### [id number] ####[facility] ([facility])[address] [place], [place] [address]Mekpvubsff (Bld) [Volume fraction]31.0 %Low36.0-48.0UnSCCI Hospital LimaComment on above:Performed By: #### [id number] ####[facility] ([facility])[address] [place], [place] [address]Kacytlyqmc (Bld) [Mass/Vol]9.8 g/dLLow12.0-15.0UnSCCI Hospital LimaComment on above:Performed By: #### [id number] ####[facility] (BEAKER)[address] [place], [place] [address]Hzecmxmx granulocytes (Bld) [#/Vol]0.05 10*3/uLNormal0.00-0.20UnS[facility] Comment on above:Performed By: #### [id number] ####[facility] (BEAKER)[address] [place], [place] [address]Grvztlde granulocytes/100 WBC (Bld)0.5 %Normal 0.0-1.0UnSCCI Hospital LimaComment on above:Performed By: #### [id number] ####[facility] (BEAKER)[address] [place] [address] Lymphocytes (Bld) [#/Vol]0.58 10*3/uLLow1.20-4.00UnSCCI Hospital LimaComment on above:Performed By: #### [id number] ####[facility] (BEAKER)[address] [place], [place] [address]Nlvrutkgxwx/100 WBC (Bld)6.3 %Low 20.0-45.0UnSCCI Hospital LimaComment on above:Performed By: #### [id number] ####[facility] (BEAKER)[address] [place] [address]JZY (RBC) [Entitic mass]28.2 osUdxcyf05.0-33.0UnSCCI Hospital [place] Comment on above:Performed By: #### [id number] ####[facility] ([facility])[address] [place], [place] [address]SKA (RBC) [Entitic vol]89.3 mJSkucei32.0-98.0 [facility] HospitalComment on above:Performed By: #### [id number] ####[facility] ([facility])[address] [place], [place] [address]Eoslupxrt (Bld) [#/Vol]0.21 10*3/uLNormal0.10-1.00UnSCCI Hospital LimaComment on above:Performed By: #### [id number] ####[facility] ([facility])[address] [place], [place] [address]Wkmrloagb/100 WBC (Bld)2.3 %Low5.0-12.0UnSCCI Hospital LimaComment on above:Performed By: #### [id number] ####[facility] (BEAKER)[address] [place], [place] [address]Xtuvxvwasqe (Bld) [#/Vol]8.38 10*3/uL High1.60-7.60UnSCCI Hospital LimaComment on above:Performed By: #### [id number] ####[facility] (BEAKER)[address] [facility] [facility] [place] [address] Neutrophils/100 WBC (Bld)90.8 %High40.0-72.0UnS[facility] Comment on above:Performed By: #### [id number] ####[facility] (BEAKER)[address] [place], [place] [address]DAFB (PER 100 WBCS) BY AUTOMATED COUNT0.0 %Normal0 [facility] HospitalComment on above:Performed By: #### [id number] ####[facility] ([facility])[address] [place] [address]HZQBQKONA (10*3/UL) IN BLOOD AUTOMATED [id number] 10*3/zEPnn986-813NmtpnbaguoSCCI Hospital LimaComment on above:Performed By: #### [id number] ####[facility] ([facility])[address] [place] [address]LVX (Bld) [#/Vol]3.47 10*6/uLLow 3.80-5.00UnSCCI Hospital LimaComment on above:Performed By: #### [id number] ####[facility] ([facility])[address] [place] [address]DBX (Bld) [#/Vol]9.23 10*3/uLNormal4.00-10.60UnSCCI Hospital [place]ima Comment on above:Performed By: #### [id number] ####[facility] ([facility])[address] [place], [place] [address]RRNOOGYAUNKDV METABOLIC PANELon 77-46-3283Ldodsvf [Mass/Vol]3.1 g/dLLow3.5-5.7UnSCCI Hospital LimaComment on above: Performed By: #### [id number] ####[facility] ([facility])[address] [place], [place] [address]QGP [Catalytic activity/Vol]60 U/TVtlvda00-866EqfnmljdbsSCCI Hospital LimaComment on above:Performed By: #### [id number] ####[facility] ([facility])[address] [place], [place] [address]MAA [Catalytic activity/Vol]4 U/LLow 7-52UnSCCI Hospital LimaComment on above:Performed By: #### [id number] ####[facility] ([facility])[address] [place], [place] [address]Uojfj gap [Moles/Vol]9 mmol/LNormal7-20[facility] Medical CenterComment on above:Performed By: #### [id number] ####[facility] ([facility])[address] [place] [address]XAU [Catalytic activity/Vol]11 U/TBpo05-60RjngfldeqaSCCI Hospital LimaComment on above:Performed By: #### [id number] ####[facility] ([facility])[address] [place] [address]Rtbpedqem [Mass/Vol]0.4 mg/dL Normal0.3-1.0UnSCCI Hospital LimaComment on above:Performed By: #### [id number] ####[facility] ([facility])[address] [place] [address] Calcium [Mass/Vol]8.0 mg/dLLow8.6-10.3UnSCCI Hospital LimaComment on above:Performed By: #### [id number] ####[facility] ([facility])[address] [place] [address]Rjsgrhxf [Moles/Vol]108 mmol/FMjbs43-398DxvrpjerdlSCCI Hospital LimaComment on above:Performed By: #### [id number] ####[facility] ([facility])[address] [place] [address]KH6 [Moles/Vol]25 mmol/XIgtbon15-25 [facility] HospitalComment on above:Performed By: #### [id number] ####[facility] ([facility])[address] [place] [address]Cqezbzbcqx [Mass/Vol]1.06 mg/dLNormal0.60-1.20UnSCCI Hospital LimaComment on above:Performed By: #### [id number] ####[facility] ([facility])[address] [place] [address]MLKRZJTTUJ FILTRATION RATE ML/MIN/1.73 SQ M.BCJJNBZXM28.1 mL/min/1.73m*2Low>60.0UnSCCI Hospital LimaComment on above:Result Comment: [facility]???s estimated glomerular filtration rate (eGFR) will [...] anyone group of individuals.Performed By: #### [id number] ####[facility] ([facility])[address] [place], [place] [address]Ttewuqj [Mass/Vol]133 mg/qGPiee32-771UcejfpqdqvSCCI Hospital LimaComment on above:Performed By: #### [id number] ####[facility] ([facility])[address] [place], [place] [address]Nqzdngckn [Moles/Vol]4.2 mmol/L Normal3.5-5.1UnSCCI Hospital LimaComment on above:Performed By: #### [id number] ####[facility] ([facility])[address] [address] Protein [Mass/Vol]5.2 g/dLLow6.0-8.3UnSCCI Hospital LimaComment on above:Performed By: #### [id number] ####[facility] ([facility])[address] [place] [address]Vrliiu [Moles/Vol]138 mmol/LUtbhfm289-150MmbkvmqxatSCCI Hospital LimaComment on above:Performed By: #### [id number] ####[facility] ([facility] [facility] [place], [place] [address]Xdgg nitrogen [Mass/Vol]19 mg/dLNormal 7-25UnSCCI Hospital LimaComment on above:Performed By: #### [id number] ####[facility] ([facility])[address] [place], [place] [address]IKBE NITROGEN/CREATININE (MASS RATIO) IN SER/PLAS17.9NormalUniversTrinity Health System East CampusComment on above:Performed By: #### [id number] ####[facility] ([facility])[address] [place], [place] [address]Tzwbcoj [Mass/Vol]3.3 g/dLLow3.5-5.7 [facility] HospitalComment on above:Performed By: #### [id number] ####[facility] ([facility])[address] [place], [place] [address]WWX [Catalytic activity/Vol]67 U/SGamgxc25-002GakvlwsnpcSCCI Hospital LimaComment on above:Performed By: #### [id number] ####[facility] ([facility])[address] [place], [place] [address]EIF [Catalytic activity/Vol]7 U/LNormal7-52UnSCCI Hospital LimaComment on above:Performed By: #### [id number] ####[facility] ([facility])[address] [place], [place] [address]Wytko gap [Moles/Vol]11 mmol/L Normal7-20UnSCCI Hospital LimaComment on above:Performed By: #### [id number] ####[facility] ([facility])[address] [place], [place] [address]RUM [Catalytic activity/Vol]14 U/WNplfaf62-89MazabxblrjSCCI Hospital Lima Comment on above:Performed By: #### [id number] ####[facility] ([facility])[address] [place], [place] [address]Mislizser [Mass/Vol]0.4 mg/dLNormal0.3-1.0 [facility] HospitalComment on above:Performed By: #### [id number] ####[facility] ([facility])[address] [place], [place] [address]Ncvqjqz [Mass/Vol]8.4 mg/dLLow8.6-10.3UnSCCI Hospital LimaComment on above:Performed By: #### [id number] ####[facility] ([facility])[address] [place], [place] [address]Pjfbzvyf [Moles/Vol]108 mmol/QZihw79-745XvrbakefimSCCI Hospital LimaComment on above:Performed By: #### [id number] ####[facility] [place] [address]SM6 [Moles/Vol]25 mmol/HSodwnt84-35 [facility] HospitalComment on above:Performed By: #### [id number] ####[facility] ([facility])[address] [place] [address]Oqeikpmigv [Mass/Vol]1.24 mg/dLHigh0.60-1.20UnSCCI Hospital LimaComment on above:Performed By: #### [id number] ####[facility] ([facility])[address] [place], [place] [address]DXGUUBFGIA FILTRATION RATE ML/MIN/1.73 SQ M.CFVMBECBN16.0 mL/min/1.73m*2Low>60.0UnSCCI Hospital LimaComment on above:Result Comment: [facility]???s estimated glomerular filtration rate (eGFR) will [...] anyone group of individuals.Performed By: #### [id number] ####[facility] ([facility])[address] [place] [address]Flcrpvm [Mass/Vol]146 mg/iCVnnp10-695XmczoziorkSCCI Hospital LimaComment on above:Performed By: #### [id number] ####[facility] ([facility])[address] [place], [place] [address]Umacjdmbz [Moles/Vol]4.1 mmol/L Normal3.5-5.1UnSCCI Hospital LimaComment on above:Performed By: #### [id number] ####[facility] ([facility])[address] [place] [address] Protein [Mass/Vol]5.7 g/dLLow6.0-8.3UnSCCI Hospital LimaComment on above:Performed By: #### [id number] ####[facility] ([facility])[address] [place], [place] [address]Qxuqxg [Moles/Vol]140 mmol/FUtntze344-244KzvmwkxbsfSCCI Hospital LimaComment on above:Performed By: #### [id number] ####[facility] ([facility])[address] [place], [place] [address]Xlrg nitrogen [Mass/Vol]21 mg/dLNormal 7-25UnSCCI Hospital LimaComment on above:Performed By: #### [id number] ####[facility] ([facility])[address] [place], [place] [address]QABA NITROGEN/CREATININE (MASS RATIO) IN SER/PLAS16.9NormalUniversTrinity Health System East CampusComment on above:Performed By: #### [id number] ####[facility] ([facility])[address] [place], [place] [address]GOT ABDOMEN W IV CONTRASTon 01-29-2024 CTA ABDOMEN W IV CONTRASTInvalid Interpretation CodeUnSCCI Hospital LimaCTA CHEST W IV CONTRASTon 58-14-9240HOB CHEST W IV CONTRASTNoal [facility] HospitalLACTIC ACID WITH 4 HOUR REFLEXon 01-29-2024 LACTATE (MMOL/L) IN SER/PLAS0.9 mmol/LNormal0.5-2.2UnSCCI Hospital LimaComment on above:Performed By: #### [id number] ####[facility] ([facility])[address] [place], [place] [address]QKGTQFE (MMOL/L) IN SER/PLAS1.6 mmol/L Normal0.5-2.2UnSCCI Hospital LimaComment on above:Performed By: #### [id number] ####[facility] ([facility])[address] [place] [address] LIPASEon 49-04-1623ASUBWU (U/L) IN SER/PLAS16 U/AEyrzxz98-18HidrwbliynSCCI Hospital LimaComment on above:Performed By: #### [id number] ####[facility] ([facility])[address] [place], [place] [address]NRVIBACJPmi 44-80-8244Meugoucmk [Mass/Vol]2.4 mg/dLNormal1.9-2.7UnSCCI Hospital LimaComment on above:Performed By: #### [id number] ####[facility] ([facility])[address] [place], [place] [address]Yrbyuwmxd [Mass/Vol]2.5 mg/dLNormal1.9-2.7UnSCCI Hospital LimaComment on above:Performed By: #### [id number] ####[facility] ([facility])[address] [place], [place] [address]Gbzqixjeh [Mass/Vol]2.7 mg/dLNormal1.9-2.7UnSCCI Hospital LimaComment on above:Performed By: #### [id number] ####[facility] ([facility])[address] [place] [address] PHOSPHORUSon 80-39-5704Pqegiyajz [Mass/Vol]3.1 mg/dLNormal2.5-5.0UnSCCI Hospital LimaComment on above:Performed By: #### [id number] ####[facility] ([facility])[address] [place], [place] [address]Itsgqjuxz [Mass/Vol]3.3 mg/dLNormal2.5-5.0UnSCCI Hospital LimaComment on above:Performed By: #### [id number] ####[facility] ([facility])[address] [place] [address] Magnesium [Mass/Vol]4.2 mg/dLNormal2.5-5.0Un[facility] [place] Comment on above:Performed By: #### [id number] ####[facility] ([facility])[address] [place], [place] [address]OOGL GLUCOSE METER UNSOLICITED RESULTSon 01-29-2024 Glucose [Mass/Vol]127 mg/gZRmks75-776NomrqhebbeSCCI Hospital LimaComment on above:Order Comment: Waived Testing in the ED is performed under the ED CLIA certificate #[id number].Result Comment: [id number] By: #### [id number] ####[facility] ([facility])[address] [place], [place] [address]Muirndg [Mass/Vol]157 mg/fWHvfq67-808JbstsgvkfuSCCI Hospital LimaComment on above:Order Comment: Waived Testing in the ED is performed under the ED CLIA certificate #[id number].Result Comment: [id number] By: #### [id number] ####[facility] ([facility])[address] [place], [place] [address]Ojrpqsa [Mass/Vol]177 mg/pCIrbu26-215RssaskvspaSCCI Hospital LimaComment on above:Order Comment: Waived Testing in the ED is performed under the ED CLIA certificate #[id number].Result Comment: [id number] By: #### [id number] ####[facility] ([facility])[address] [place], [place] [address]Lqseyas [Mass/Vol]192 mg/aBGzxs37-246EuhfxoctouSCCI Hospital LimaComment on above:Order Comment: Waived Testing in the ED is performed under the ED CLIA certificate #[id number].Result Comment: [id number] By: #### [id number] ####[facility] ([facility])[address] [place], [place] [address]SHKJVULGA, WHOLE BLOODon 18-33-3642Fxypucvng [Moles/Vol]4.0 mmol/LNormal3.5-5.1UnSCCI Hospital LimaComment on above:Performed By: #### POTASSIUM, WHOLE BLOOD ####[facility] [id number] [place] [address] USASODIUM, WHOLE BLOODon 23-62-9286VLNLFK, WHOLE PMULL352Lslolp413-672MeayntyqvnSCCI Hospital LimaComment on above:Performed By: #### SODIUM, WHOLE BLOOD ####[facility] [id number] [place] [address] USATROPONIN Ion 01-29-2024 Troponin I.cardiac [Mass/Vol]0.02 ng/mLNormal0.00-0.04UnSCCI Hospital LimaComment on above:Performed By: #### [id number] ####[facility] ([facility])[address] [place], [place] [address]Yqelhcjk I.cardiac [Mass/Vol]0.07 ng/mLHigh0.00-0.04UnSCCI Hospital LimaComment on above:Performed By: #### [id number] ####[facility] ([facility])[address] [place] [address] Troponin I.cardiac [Mass/Vol]0.03 ng/mLNormal0.00-0.04UnSCCI Hospital LimaComment on above:Performed By: #### [id number] ####[facility] ([facility])[address] [place], [place] [address]dl 36-41-[address]TckftiZeqfzdesix [facility]30NormalUniversity [facility] HospitalANESon 82-00-5865BCDKBtuhkvAwykhajaks [facility] HospitalANESNormalUniversTrinity Health System East CampusARTERIAL BLOOD GAS WITH CO-OXIMETRYon 04-48-6221Mxer excess Calc (Bld) [Moles/Vol]-2.0000 mmol/LNormal-2.0-3.0UnSCCI Hospital LimaComment on above:Performed By: #### [id number] ####[facility] [id number] [place] [address] USACARBOXYHEMOGLOBIN/HEMOGLOBIN TOTAL % IN BLOOD1.9 %Normal0.0-3.0UnSCCI Hospital LimaComment on above: Performed By: #### [id number] ####[facility] [id number] [place] [address] USACO2 (Bld) [Partial pressure]52 mm[Hg]Iawx96-74MdzdtybvljSCCI Hospital LimaComment on above:Performed By: #### [id number] ####[facility] [id number] [facility] [place] [address] USADEOXYGENATED HEMOGLOBIN IN BLOOD0.9 %Low1-5UnSCCI Hospital LimaComment on above:Performed By: #### [id number] ####[facility] [id number] [place] [address] USAHCO3 (Bld) [Moles/Vol]25.0 mmol/ZAefupw88.0-28.0UnSCCI Hospital [place] Comment on above:Performed By: #### [id number] ####[facility] [id number] [place] [address] USAHemoglobin (Bld) [Mass/Vol]11.1 g/dLLow 11.7-17.4UnSCCI Hospital LimaComment on above:Performed By: #### [id number] ####[facility] [id number] [place] [address] USALPM3 NormalUnSCCI Hospital LimaComment on above:Performed By: #### [id number] ####[facility] [id number] [place] [address] [place] METHEMOGLOBIN/100 IN BLOOD0.9 %Normal0.0-1.5UnS[facility]I Hospital [place] Comment on above:Performed By: #### [id number] ####[facility] [id number] [place] [address] USAOxygen (Bld) [Partial pressure]103 mm[Hg]High 83-100UnSCCI Hospital LimaComment on above:Performed By: #### [id number] ####[facility] [id number] [place] [address] USAOXYGEN SATURATION (%) IN ARTERIAL BLOOD99.1 %High94.0-98.0UnSCCI Hospital LimaComment on above:Performed By: #### [id number] ####[facility] [id number] [place] [address] USAOXYGENATED HEMOGLOBIN IN BLOOD96.3 %High90.0-95.0UnSCCI Hospital LimaComment on above:Performed By: #### [id number] ####[facility] [id number] [place] [address] [place] pH (Bld)7.29 [pH]Low7.35-7.45UnSCCI Hospital LimaComment on above:Performed By: #### [id number] ####[facility] [id number] [place] [address] USASOURCE OF OXYGENNasal cannulaNormalUniversity [facility] HospitalComment on above:Performed By: #### [id number] ####[facility] [id number] [place] [address] USAB-TYPE NATRIURETIC PEPTIDEon 25-66-3741Ujdwuzhbvxx peptide B (Bld) [Mass/Vol]869 pg/mLHigh0-100UnSCCI Hospital LimaComment on above:Performed By: #### [id number] ####[facility] ([facility])[address] [place], [place] [address]HACLR METABOLIC PANELon 10-61-7142Bzrxi gap [Moles/Vol]11 mmol/LNormal7-20UnSCCI Hospital LimaComment on above:Performed By: #### [id number] ####[facility] ([facility])[address] [place], [place] [address]Xquimam [Mass/Vol]8.2 mg/dLLow8.6-10.3 [facility] HospitalComment on above:Performed By: #### [id number] ####[facility] ([facility])[address] [place], [place] [address]Zxtfbtsf [Moles/Vol]106 mmol/DMgpayh61-324LgqpzmyijrSCCI Hospital LimaComment on above:Performed By: #### [id number] ####[facility] ([facility])[address] [place], [place] [address]WJ1 [Moles/Vol]26 mmol/OYjekiu80-59TvfubdexaxSCCI Hospital LimaComment on above:Performed By: #### [id number] ####[facility] ([facility])[address] [place], [place] [address]Fzqwmfwfez [Mass/Vol]1.17 mg/dLNormal 0.60-1.20UnSCCI Hospital LimaComment on above:Performed By: #### [id number] ####[facility] ([facility])[address] [place] [address]AITIVTHRSL FILTRATION RATE ML/MIN/1.73 SQ M.DMIHFDBQT35.2 mL/min/1.73m*2Low>60.0UnSCCI Hospital LimaComment on above:Result Comment: [facility]???s estimated glomerular filtration rate (eGFR) will [...] group of individuals. Performed By: #### [id number] ####[facility] ([facility])[address] [place] [address]Ujyqhic [Mass/Vol]161 mg/qXZogl20-759XuoqjwdyluSCCI Hospital LimaComment on above:Performed By: #### [id number] ####[facility] ([facility])[address] [place] [address]Plpvfgbgr [Moles/Vol]4.1 mmol/LNormal 3.5-5.1UnSCCI Hospital LimaComment on above:Performed By: #### [id number] ####[facility] ([facility])[address] [place] [address]Kjxjog [Moles/Vol]139 mmol/DJkocex376-827FeumiyerkaSCCI Hospital LimaComment on above:Performed By: #### [id number] ####[facility] ([facility])[address] [place] [address]Rvez nitrogen [Mass/Vol]20 mg/dLNormal7-25UnSCCI Hospital LimaComment on above:Performed By: #### [id number] ####[facility] ([facility])[address] [place] [address]KRXN NITROGEN/CREATININE (MASS RATIO) IN SER/PLAS17.1NormalUnSCCI Hospital LimaComment on above: Performed By: #### [id number] ####[facility] ([facility])[address] [place] [address]Lefeg gap [Moles/Vol]8 mmol/LNormal7-20UnSCCI Hospital LimaComment on above:Performed By: #### [id number] ####[facility] ([facility])[address] [place] [address]Khhlwya [Mass/Vol]8.8 mg/dLNormal 8.6-10.3UnSCCI Hospital LimaComment on above:Performed By: #### [id number] ####[facility] ([facility])[address] [place] [address]Utxdiswi [Moles/Vol]105 mmol/XErahmb68-541UqrgjkileaSCCI Hospital LimaComment on above:Performed By: #### [id number] ####[facility] ([facility])[address] [place] [address]XX5 [Moles/Vol]29 mmol/MZbasbx62-74TrshebaynySCCI Hospital LimaComment on above:Performed By: #### [id number] ####[facility] ([facility])[address] [place], [place] [address]Mxtlmhigcx [Mass/Vol]1.19 mg/dLNormal 0.60-1.20UnSCCI Hospital LimaComment on above:Performed By: #### [id number] ####[facility] ([facility])[address] [place], [place] [address]ZQRPNTOAAT FILTRATION RATE ML/MIN/1.73 SQ M.OHGGISWRL30.2 mL/min/1.73m*2Low>60.0UnSCCI Hospital LimaComment on above:Result Comment: [facility]???s estimated glomerular filtration rate (eGFR) will [...] group of individuals. Performed By: #### [id number] ####[facility] ([facility])[address] [place], [place] [address]Yafjyyx [Mass/Vol]97 mg/hCBamovn82-605ZepnpnvfcfSCCI Hospital LimaComment on above:Performed By: #### [id number] ####[facility] ([facility])[address] [place], [place] [address]Znzzsgpwp [Moles/Vol]3.7 mmol/LNormal 3.5-5.1UnSCCI Hospital LimaComment on above:Performed By: #### [id number] ####[facility] ([facility])[address] [place], [place] [address]Xtgpyo [Moles/Vol]138 mmol/RKgzsor847-909OckfegactpSCCI Hospital LimaComment on above:Performed By: #### [id number] ####[facility] ([facility])[address] [place], [place] [address]Zynb nitrogen [Mass/Vol]22 mg/dLNormal7-25UnSCCI Hospital LimaComment on above:Performed By: #### [id number] ####[facility] ([facility])[address] [place], [place] [address]KLGI NITROGEN/CREATININE (MASS RATIO) IN SER/PLAS18.5NormalUniversTrinity Health System East CampusComment on above: Performed By: #### [id number] ####[facility] ([facility])[address] [place], [place] [address]LLHLMFW, IONIZEDon 91-00-1934PLPAJYM IONIZED (MMOL/L) IN BLOOD1.17 mmol/LNormal1.15-1.33UnSCCI Hospital LimaComment on above: Performed By: #### CALCIUM, IONIZED ####[facility] [id number] [place] [address] USACBC WITH AUTO DIFFERENTIALon 57-11-7449Fxvuaoely (Bld) [#/Vol]0.02 10*3/uLNormal0.00-0.20UnSCCI Hospital LimaComment on above:Performed By: #### [id number] ####[facility] ([facility])[address] [place], [place] [address]Rvqijsltw/100 WBC (Bld)0.2 %Normal0.0-1.0UnSCCI Hospital LimaComment on above:Performed By: #### [id number] ####[facility] ([facility])[address] [place] [facility] [address]Wrfnheovyfd (Bld) [#/Vol]0.02 10*3/uL Normal0.00-0.50UnSCCI Hospital LimaComment on above:Performed By: #### [id number] ####[facility] ([facility])[address] [place] [address] Eosinophils/100 WBC (Bld)0.2 %Normal0.0-6.0UnSCCI Hospital [facility] Comment on above:Performed By: #### [id number] ####[facility] ([facility])[address] [place] [address]Fwvicynuxrk distribution width (RBC) [Ratio]16.4 % High11.5-15.0UnSCCI Hospital LimaComment on above:Performed By: #### [id number] ####[facility] ([facility])[address] [place] [address] ERYTHROCYTE MEAN CORPUSCULAR HEMOGLOBIN CONCENTRATION (G/DL) BY AWIJWAXRR68.3 g/dLLow32.0-35.0UnSCCI Hospital LimaComment on above:Performed By: #### [id number] ####[facility] ([facility])[address] [place], [place] [address]Vvedsugtfg (Bld) [Volume fraction]34.2 %Low36.0-48.0UnSCCI Hospital LimaComment on above:Performed By: #### [id number] ####[facility] ([facility])[address] [place] [address]Miqdbxholc (Bld) [Mass/Vol]10.7 g/dL Low12.0-15.0UnSCCI Hospital LimaComment on above:Performed By: #### [id number] ####[facility] ([facility])[address] [place] [address] Immature granulocytes (Bld) [#/Vol]0.09 10*3/uLNormal0.00-0.20UnSCCI Hospital LimaComment on above:Performed By: #### [id number] ####[facility] ([facility])[address] [place] [address]Spipslhu granulocytes/100 WBC (Bld)0.9 %Normal0.0-1.0UnSCCI Hospital LimaComment on above: Performed By: #### [id number] ####[facility] ([facility])[address] [place] [address]Ckufdkkinhc (Bld) [#/Vol]1.01 10*3/uLLow1.20-4.00UnSCCI Hospital LimaComment on above:Performed By: #### [id number] ####[facility] ([facility])[address] [place] [id number]/100 WBC (Bld) 9.6 %Low20.0-45.0UnSCCI Hospital LimaComment on above:Performed By: #### [id number] ####[facility] ([facility])[address] [place], [place] [address]JPJ (RBC) [Entitic mass]28.0 wgEzuecb86.0-33.0UnSCCI Hospital LimaComment on above:Performed By: #### [id number] ####[facility] ([facility])[address] [place] [address]JBO (RBC) [Entitic vol]89.5 fLNormal 82.0-98.0UnSCCI Hospital LimaComment on above:Performed By: #### [id number] ####[facility] [place] [id number] Monocytes (Bld) [#/Vol]0.18 10*3/uLNormal0.10-1.00UnSCCI Hospital LimaComment on above:Performed By: #### [id number] ####[facility] ([facility])[address] [place] [address]Kzagwsqup/100 WBC (Bld)1.7 %Low 5.0-12.0UnSCCI Hospital LimaComment on above:Performed By: #### [id number] ####[facility] ([facility])[address] [place] [address] Neutrophils (Bld) [#/Vol]9.15 10*3/uLHigh1.60-7.60UnSCCI Hospital LimaComment on above:Performed By: #### [id number] ####[facility] ([facility])[address] [place] [address]Zqhlimnsnqz/100 WBC (Bld)87.4 %High 40.0-72.0UnSCCI Hospital LimaComment on above:Performed By: #### [id number] ####[facility] ([facility])[address] [place] [id number] (PER 100 WBCS) BY AUTOMATED COUNT0.0 %Umxjjd1XeeayozmqjSCCI Hospital Lima Comment on above:Performed By: #### [id number] ####[facility] ([facility])[address] [place] [id number] (10*3/UL) IN BLOOD AUTOMATED [id number] 10*3/kLZwfarp181-288LkaasmnvwuSCCI Hospital LimaComment on above: Performed By: #### [id number] ####[facility] ([facility])[address] [place] [id number] (Bld) [#/Vol]3.82 10*6/uLNormal3.80-5.00UnSCCI Hospital LimaComment on above:Performed By: #### [id number] ####[facility] ([facility])[address] [place], [place] [address]KSK (Bld) [#/Vol]10.47 10*3/uLNormal4.00-10.60UnSCCI Hospital LimaComment on above: Performed By: #### [id number] ####[facility] ([facility])[address] [place], [place] [address]Mokcrxxph (Bld) [#/Vol]0.04 10*3/uLNormal0.00-0.20UnSCCI Hospital LimaComment on above:Performed By: #### [id number] ####[facility] ([facility])[address] [place], [place] [address]Rmepvwedz/100 WBC (Bld) 0.5 %Normal0.0-1.0UnSCCI Hospital LimaComment on above:Performed By: #### [id number] ####[facility] ([facility])[address] [place], [place] [address]Mgquiociygr (Bld) [#/Vol]0.21 10*3/uLNormal0.00-0.50UnSCCI Hospital LimaComment on above:Performed By: #### [id number] ####[facility] ([facility])[address] [place], [place] [address]Oaayqkykget/100 WBC (Bld)2.8 %Normal 0.0-6.0UnSCCI Hospital LimaComment on above:Performed By: #### [id number] ####[facility] ([facility])[address] [place] [address] Erythrocyte distribution width (RBC) [Ratio]16.3 %High11.5-15.0UnSCCI Hospital LimaComment on above:Performed By: #### [id number] ####[facility] ([facility])[address] [place], [place] [address]VKQEUERLSTK MEAN CORPUSCULAR HEMOGLOBIN CONCENTRATION (G/DL) BY KIZCOGTZQ12.6 g/dLLow32.0-35.0 [facility] HospitalComment on above:Performed By: #### [id number] ####[facility] ([facility]AK[facility])[address] [place], [place] [address]Hggeqgkaqu (Bld) [Volume fraction]34.5 %Low36.0-48.0UnSCCI Hospital LimaComment on above:Performed By: #### [id number] ####[facility] ([facility])[address] [place], [place] [address]Ykvhpktpux (Bld) [Mass/Vol]10.9 g/dLLow12.0-15.0UnSCCI Hospital LimaComment on above:Performed By: #### [id number] ####[facility] ([facility])[address] [place], [place] [address]Jfjseale granulocytes (Bld) [#/Vol]0.04 10*3/uLNormal0.00-0.20Un[facility] [place] Comment on above:Performed By: #### [id number] ####[facility] ([facility])[address] [place], [place] [address]Inpfscsr granulocytes/100 WBC (Bld)0.5 %Normal 0.0-1.0UnSCCI Hospital LimaComment on above:Performed By: #### [id number] ####[facility] ([facility])[address] [place] [address] Lymphocytes (Bld) [#/Vol]1.83 10*3/uLNormal1.20-4.00UnSCCI Hospital LimaComment on above:Performed By: #### [id number] ####[facility] ([facility])[address] [place], [place] [address]Rjlftcvkpoj/100 WBC (Bld)24.8 %Normal 20.0-45.0UnSCCI Hospital LimaComment on above:Performed By: #### [id number] ####[facility] ([facility])[address] [place], [place] [address]JPB (RBC) [Entitic mass]28.0 qdQgnwuy26.0-33.0[facility] [place] Comment on above:Performed By: #### [id number] ####[facility] ([facility])[address] [place] [address]SIH (RBC) [Entitic vol]88.7 zOGinrhc88.0-98.0 [facility] HospitalComment on above:Performed By: #### [id number] ####[facility] ([facility])[address] [place] [address]Dvfreoiik (Bld) [#/Vol]0.70 10*3/uLNormal0.10-1.00UnSCCI Hospital LimaComment on above:Performed By: #### [id number] ####[facility] ([facility])[address] [place] [address]Cqvaewzbp/100 WBC (Bld)9.5 %Normal5.0-12.0UnSCCI Hospital LimaComment on above:Performed By: #### [id number] ####[facility] ([facility])[address] [place] [address]Cnymoynpipy (Bld) [#/Vol] 4.57 10*3/uLNormal1.60-7.60UnSCCI Hospital LimaComment on above: Performed By: #### [id number] ####[facility] ([facility])[address] [place] [address]Sgbasjjgqzk/100 WBC (Bld)61.9 %Gqculf34.0-72.0UnSCCI Hospital LimaComment on above:Performed By: #### [id number] ####[facility] ([facility])[address] [place] [address]UBAQ (PER 100 WBCS) BY AUTOMATED COUNT0.0 %Teykuy2SlgomorrxbSCCI Hospital LimaComment on above: Performed By: #### [id number] ####[facility] ([facility])[address] [place] [address]LIWQOHPKI (10*3/UL) IN BLOOD AUTOMATED [id number] 10*3/uLNormal 150-400University [facility]arcenas Medical CenterComment on above:Performed By: #### [id number] ####[facility] ([facility])[address] [place] [address]GBF (Bld) [#/Vol]3.89 10*6/uLNormal3.80-5.00[facility] Comment on above:Performed By: #### [id number] ####[facility] ([facility])[address] [facility] [place] [facility] [place] [address]OGH (Bld) [#/Vol]7.39 10*3/uLNormal4.00-10.60 [facility] HospitalComment on above:Performed By: #### [id number] ####[facility] ([facility])[address] [place] [place] [facility] [place] [address]YYDXFOTdm 23-75-7239NCYQYLUJtnsmlHeymlbmzdi of [facility] Medical CenterCONSULTNormal [facility] HospitalMAGNESIUMon 28-39-0052Cabemoifi [Mass/Vol]1.9 mg/dLNormal1.9-2.7UnSCCI Hospital LimaComment on above:Performed By: #### [id number] ####[facility] ([facility])[address] [place], [place] [address]Qhyuorpyw [Mass/Vol]1.8 mg/dLLow1.9-2.7[facility] [place] Comment on above:Performed By: #### [id number] ####[facility] ([facility])[address] [place], [place] [address]LACH/MSSA DNA NASALon 15-69-9911MOMN DNANegative NormalNegativeUnSCCI Hospital LimaComment on above:Order Comment: Testing methodology is an [...] does not preclude nasal colonization.Performed By: #### [id number] ####[facility] ([facility])[address] [place], [place] [address]WMQI DNANegative NormalNegativeProMedica Toledo HospitalComment on above:Order Comment: Testing methodology is an [...] does not preclude nasal colonization.Performed By: #### [id number] ####[facility] ([facility])[address] [place], [place] [address]XNCMGQCIwc 24-19-4691AMDHLMEUZIFZUF: 41.9 MIN K: 1723 MGY CONTRAST: 80 MLNormalUnSCCI Hospital LimaNURSNOTEACT 225Normal [facility] HospitalNURSNOTEOk per Dr Van to give amiodarone patient HR 53NormalUniversTrinity Health System East CampusOPNOTEon 37-62-2023VFPJIN NormalUnSCCI Hospital LimaPHOSPHORUSon 40-29-8633Fcgwnsrqd [Mass/Vol]4.5 mg/dLNormal2.5-5.0UnSCCI Hospital LimaComment on above:Performed By: #### [id number] ####[facility] ([facility])[address] [place], [place] [address]RTKC ACTIVATED CLOTTING TIME UNSOLICITED RESULTSon 01-28-2024 POC ACTIVATED CLOTTING ALPY657 lqhVcwv40-859PsbctbuzyfSCCI Hospital Lima Comment on above:Performed By: #### [id number] ####[facility] ([facility])[address] [place], [place] [address]IUNS GLUCOSE METER UNSOLICITED RESULTSon 01-28-2024 Glucose [Mass/Vol]112 mg/jFLyej50-553JnwsymuhaeSCCI Hospital LimaComment on above:Order Comment: Waived Testing in the ED is performed under the ED CLIA certificate #[id number].Result Comment: [id number] By: #### [id number] ####[facility] ([facility])[address] [place], [place] [address]Dkmunjj [Mass/Vol]105 mg/gRPuutfd15-982IpoefgtfsdSCCI Hospital LimaComment on above:Order Comment: Waived Testing in the ED is performed under the ED CLIA certificate #[id number].Result Comment: [id number] By: #### [id number] ####[facility] (BE[facility]ER)[address] [place], [place] [address]VDTY PERFUSION PANEL UNSOLICITED RESULTSon 69-91-2440MH8 [Moles/Vol]29.0 mmol/LAlvoqz50.0-29.0 [facility] HospitalComment on above:Performed By: #### [id number] ####[facility] ([facility])[address] [place], [place] [address]Gccjrxd [Mass/Vol]139 mg/tADiho29-748HsfjlehrcvSCCI Hospital LimaComment on above:Performed By: #### [id number] ####[facility] (BEAKER)[address] [place], [place] [address]GCP7 (Bld) [Moles/Vol]27.9 mmol/NZuwypv91.0-28.0UnSCCI Hospital LimaComment on above:Performed By: #### [id number] ####[facility] (BEAKER)[address] [place], [place] [address]Jetxfqkluf (Bld) [Volume fraction]33 %Afa46-66HyzzfntytaSCCI Hospital LimaComment on above: Performed By: #### [id number] ####[facility] (BEAKER)[address] [place], [place] [address]Ptjniwagti (Bld) [Mass/Vol]11.2 g/dLLow12.0-17.0UnSCCI Hospital LimaComment on above:Performed By: #### [id number] ####[facility] ([facility])[address] [place], [place] [address]IAFX BASE EXCESS2.0 mmol/LNormal-2.0-3.0UnSCCI Hospital LimaComment on above: Performed By: #### [id number] ####[facility] ([facility])[address] [place] [address]FHOI IONIZED CALCIUM1.22 mmol/LNormal1.12-1.32UnSCCI Hospital LimaComment on above:Performed By: #### [id number] ####[facility] ([facility])[address] [place] [address]KDYR DSD280.6 mmHgNormal 41.0-51.0UnSCCI Hospital LimaComment on above:Performed By: #### [id number] ####[facility] ([facility])[address] [place] [address]ARWK PH 7.05Ptmxuz8.31-7.41UnSCCI Hospital LimaComment on above:Performed By: #### [id number] ####[facility] ([facility])[address] [place] [address]LKFF AQ0847 ixBzZfdh46-045FpebizslumSCCI Hospital LimaComment on above:Performed By: #### [id number] ####[facility] ([facility])[address] [place] [address]GWPK SO298 %Aymwab35-29DkadberqeeSCCI Hospital Lima Comment on above:Performed By: #### [id number] ####[facility] ([facility])[address] [place] [address]Ukdxpzean [Moles/Vol]4.0 mmol/LNormal3.5-4.9 [facility] HospitalComment on above:Performed By: #### [id number] ####[facility] ([facility])[address] [place] [address]Atjrsf [Moles/Vol]142 mmol/XLkvdrd934.0-146.0UnSCCI Hospital LimaComment on above:Performed By: #### [id number] ####[facility] ([facility])[address] [place], [place] [address]YBPFTGBBG, WHOLE BLOODon 77-24-1712Lekqmidvl [Moles/Vol]3.9 mmol/LNormal3.5-5.1UnSCCI Hospital LimaComment on above:Performed By: #### POTASSIUM, WHOLE BLOOD ####[facility] [id number] [place] [address] USAPROTIME-INRon 49-70-9901IYC IN PPP BY COAGULATION ASSAY1.07Yxjz8.90-1.10UnSCCI Hospital LimaComment on above:Result Comment: ACCCP RECOMMENDED INR FOR WARFARIN THERAPY CONDITION INRPROPHYLAXIS OF VENOUS THROMBOSIS 2-3(HIGH-RISK SURGERY)TREATMENT OF VENOUS THROMBOSIS 2-3TREATMENT OF PULMONARY EMBOLISM 2-3PREVENTION OF SYSTEMIC EMBOLISM: 2-3 ACUTE MYOCARDIAL INFARCTION TISSUE HEART VALVES VALVULAR HEART DISEASE ATRIAL FIBRILLATION RECURRENT SYSTEMIC EMBOLISMMECHANICAL HEART VALVE 2.5-3.5 FROM: ORAL ANTICOAGULANTS. MECHANISM OF ACTION, CLINICAL EFFECTIVENESS, AND OPTIMAL THERAPE UTIC RANGE. CHEST 1995;108:231S-246S.Performed By: #### [id number] ####[facility] (BEAKER)[address] [place], [place] [address]HOAVCIRHXRT TIME (PT) IN PPP BY COAGULATION ASSAY14.5 ArqllspZskuxy08.3-14.8UnSCCI Hospital LimaComment on above:Performed By: #### [id number] ####[facility] (BEAKER)[address] [place], [place] [address]BDUSBX, WHOLE BLOODon 01-28-2024 SODIUM, WHOLE IZOFS064Dhipcf046-435VfvotyejhlSCCI Hospital LimaComment on above:Performed By: #### SODIUM, WHOLE BLOOD ####[facility] [id number] [place] [address] UCD12sy 16-60-360224ZaroqwUjfnelayuq of [facility] CenterAPTCopper [facility] 99-29-9434SEWCYNXPR PARTIAL THROMBOPLASTIN TIME IN PPP BY COAGULATION ASSAY32.6 ZtvkqshWjhzqt76.0-35.0[facility] [place] Comment on above:Result Comment: Clinical significance of the APTT is questionable in the presence of heparin.Performed By: #### [id number] ####[facility] (AKER)[address] [place], [place] [address]ZOU WITH AUTO DIFFERENTIALon 44-40-2838Zkwghypkg (Bld) [#/Vol]0.03 10*3/uLNormal0.00-0.20 [facility] HospitalComment on above:Performed By: #### [id number] ####[facility] (BEAKER)[address] [place], [place] [address]Fapuqqeqw/100 WBC (Bld)0.4 %Normal0.0-1.0UnSCCI Hospital LimaComment on above: Performed By: #### [id number] ####[facility] (BEAKER)[address] [place], [place] [address]Hwlvkcppjpv (Bld) [#/Vol]0.20 10*3/uLNormal0.00-0.50 [facility] HospitalComment on above:Performed By: #### [id number] ####[facility] (BEAKER)[address] [place], [place] [address]Avjclvqdktw/100 WBC (Bld)2.7 %Normal0.0-6.0UnSCCI Hospital LimaComment on above: Performed By: #### [id number] ####[facility] (BEAKER)[address] [place], [place] [address]Cepjxtdcjqq distribution width (RBC) [Ratio]15.8 %High 11.5-15.0UnSCCI Hospital LimaComment on above:Performed By: #### [id number] ####[facility] (BEAKER)[address] [place] [address] ERYTHROCYTE MEAN CORPUSCULAR HEMOGLOBIN CONCENTRATION (G/DL) BY PYFPFEPSG66.0 g/yRAsihfx33.0-35.0UnSCCI Hospital LimaComment on above:Performed By: #### [id number] ####[facility] (BEAKER)[address] [place], [place] [address]Hbbmkqohur (Bld) [Volume fraction]36.3 %Jciuxh38.0-48.0UnSCCI Hospital LimaComment on above:Performed By: #### [id number] ####[facility] ([facility])[address] [place], [place] [address]Cmobdnvbeb (Bld) [Mass/Vol]11.6 g/dL Low12.0-15.0UnSCCI Hospital LimaComment on above:Performed By: #### [id number] ####[facility] ([facility] [place] [address] Immature granulocytes (Bld) [#/Vol]0.05 10*3/uLNormal0.00-0.20UnSCCI Hospital LimaComment on above:Performed By: #### [id number] ####[facility] (BEAKER)[address] [place], [place] [address]Xepbrjvu granulocytes/100 WBC (Bld)0.7 %Normal0.0-1.0UnSCCI Hospital LimaComment on above: Performed By: #### [id number] ####[facility] (BEAKER)[address] [place], [place] [address]Gxdokkqqtiv (Bld) [#/Vol]1.81 10*3/uLNormal1.20-4.00 [facility] HospitalComment on above:Performed By: #### [id number] ####[facility] (BEAKER)[address] [place], [place] [address]Jjvcgxdcwze/100 WBC (Bld)24.0 %Bjtylc02.0-45.0UnSCCI Hospital LimaComment on above:Performed By: #### [id number] ####[facility] ([facility])[address] [place] [address]FRV (RBC) [Entitic mass]28.6 wwMrgaxk05.0-33.0UnSCCI Hospital LimaComment on above:Performed By: #### [id number] ####[facility] ([facility])[address] [place] [address]UTO (RBC) [Entitic vol] 89.6 dBXnmjfd11.0-98.0UnSCCI Hospital LimaComment on above: Performed By: #### [id number] ####[facility] ([facility])[address] [place] [address]Wglgqpolv (Bld) [#/Vol]0.62 10*3/uLNormal0.10-1.00UnSCCI Hospital LimaComment on above:Performed By: #### [id number] ####[facility] ([facility])[address] [place] [address]Urxbfphod/100 WBC (Bld) 8.2 %Normal5.0-12.0UnSCCI Hospital LimaComment on above:Performed By: #### [id number] ####[facility] ([facility])[address] [place], [place] [address]Mmbxnpdjhsj (Bld) [#/Vol]4.82 10*3/uLNormal1.60-7.60UnSCCI Hospital LimaComment on above:Performed By: #### [id number] ####[facility] ([facility])[address] [place] [address]Yziztbimqjg/100 WBC (Bld)64.0 %Normal 40.0-72.0UnSCCI Hospital LimaComment on above:Performed By: #### [id number] ####[facility] ([facility])[address] [place] [address]RRIT (PER 100 WBCS) BY AUTOMATED COUNT0.0 %Wdvcak6YiyljphshdSCCI Hospital Lima Comment on above:Performed By: #### [id number] ####[facility] ([facility])[address] [place] [address]WURDCAXNG (10*3/UL) IN BLOOD AUTOMATED XMCQI881 10*3/yNEomdfh953-042HrelyqydrjSCCI Hospital LimaComment on above: Performed By: #### [id number] ####[facility] ([facility])[address] [place] [address]PLN (Bld) [#/Vol]4.05 10*6/uLNormal3.80-5.00UnSCCI Hospital LimaComment on above:Performed By: #### [id number] ####[facility] ([facility])[address] [place] [address]VZV (Bld) [#/Vol]7.53 10*3/uLNormal4.00-10.60UnSCCI Hospital LimaComment on above: Performed By: #### [id number] ####[facility] ([facility])[address] [place], [place] [address]VGFUZXMUMMVLV METABOLIC PANELon 74-72-2050Mfufqrm [Mass/Vol] 3.7 g/dLNormal3.5-5.7UnSCCI Hospital LimaComment on above: Performed By: #### [id number] ####[facility] ([facility])[address] [place], [place] [address]JZO [Catalytic activity/Vol]81 U/QFzsiyh41-374RmupmmyylzSCCI Hospital LimaComment on above:Performed By: #### [id number] ####[facility] ([facility])[address] [place], [place] [address]JPF [Catalytic activity/Vol]9 U/L Normal7-52UnSCCI Hospital LimaComment on above:Performed By: #### [id number] ####[facility] ([facility])[address] [place], [place] [address]Fauaj gap [Moles/Vol]10 mmol/LNormal7-20UnSCCI Hospital LimaComment on above:Performed By: #### [id number] ####[facility] (BEAKER)[address] [place] [address]TVU [Catalytic activity/Vol]13 U/BEazypr11-43CfeitlcdfrSCCI Hospital LimaComment on above:Performed By: #### [id number] ####[facility] ([facility] [place] [address]Eoiiumffa [Mass/Vol]0.8 mg/dL Normal0.3-1.0UnSCCI Hospital LimaComment on above:Performed By: #### [id number] ####[facility] ([facility])[address] [place] [address] Calcium [Mass/Vol]9.0 mg/dLNormal8.6-10.3UnS[facility] [place] Comment on above:Performed By: #### [id number] ####[facility] ([facility])[address] [place] [address]Gczdctfg [Moles/Vol]106 mmol/ARgkvel36-480 [facility] HospitalComment on above:Performed By: #### [id number] ####[facility] ([facility])[address] [place] [address]SO3 [Moles/Vol] 27 mmol/EPfgmpz76-05WcyhbtwtrmSCCI Hospital LimaComment on above: Performed By: #### [id number] ####[facility] ([facility])[address] [place] [address]Zturbasifb [Mass/Vol]1.14 mg/dLNormal0.60-1.20UnSCCI Hospital LimaComment on above:Performed By: #### [id number] ####[facility] ([facility])[address] [place], [place] [address]ZUGSPEKSCU FILTRATION RATE ML/MIN/1.73 SQ M.YKVGKTNQP91.7 mL/min/1.73m*2Low>60.0UnS[facility] [place] Comment on above:Result Comment: [facility]???s estimated glomerular filtration rate (eGFR) will [...] anyone group of individuals.Performed By: #### [id number] ####[facility] ([facility])[address] [place], [place] [address]Mlivwfx [Mass/Vol]88 mg/pQIybigx02-531JgiqxiuiseSCCI Hospital LimaComment on above:Performed By: #### [id number] ####[facility] ([facility])[address] [place], [place] [address]Leeyanzca [Moles/Vol]3.8 mmol/LNormal3.5-5.1UnSCCI Hospital LimaComment on above:Performed By: #### [id number] ####[facility] ([facility])[address] [place], [place] [address]Tkejukh [Mass/Vol]5.9 g/dLLow 6.0-8.3UnSCCI Hospital LimaComment on above:Performed By: #### [id number] ####[facility] ([facility])[address] [place], [place] [address]Vpgmyc [Moles/Vol]139 mmol/CVjreki627-428VmtcwvmtnqSCCI Hospital LimaComment on above:Performed By: #### [id number] ####[facility] ([facility])[address] [place], [place] [address]Tdzu nitrogen [Mass/Vol]20 mg/dLNormal7-25UnSCCI Hospital LimaComment on above:Performed By: #### [id number] ####[facility] ([facility])[address] [place], [place] [address]VWWR NITROGEN/CREATININE (MASS RATIO) IN SER/PLAS17.5NormalUniversTrinity Health System East CampusComment on above: Performed By: #### [id number] ####[facility] ([facility])[address] [place], [place] [address]XEZNEHOhz 01-64-4858MSWHPTQJvfreyHgmyzzwpcj of [place] Medical CenterCTA ABDOMEN PELVIS W IV CONTRASTon 35-66-8714YSB ABDOMEN PELVIS W IV CONTRASTNormal [facility] [place] HospitalCTA CHEST W IV CONTRASTon 20-42-2527VAD CHEST W IV CONTRASTNormalUniversKindred Hospital LimaPROVon 08-66-2190BHZYXS NormalUnSCCI Hospital LimaHPon 39-77-8940RKQzzkiwAwxtsbgyeq of [place] Medical CenterLACTIC ACID WITH 4 HOUR REFLEXon 79-58-9069SJSBSMW (MMOL/L) IN SER/PLAS0.7 mmol/LNormal0.5-2.2[facility] [place] HospitalComment on above:Performed By: #### [id number] ####[facility] ([facility])[address] [place], [place] [address]ACKERHqi 37-52-8980JZJYZO (U/L) IN SER/PLAS18 U/BQquokr35-01 [facility] [place] HospitalComment on above:Performed By: #### [id number] ####[facility] ([facility])[address] [place], [place] [address]JVYIOPNJAqm 92-66-7381Aapzisqcm [Mass/Vol]1.9 mg/dLNormal1.9-2.7[facility] [place] HospitalComment on above:Performed By: #### [id number] ####[facility] ([facility])[address] [place], [place] [address]PZHD GLUCOSE METER UNSOLICITED RESULTS on 91-55-7143Oqrnuun [Mass/Vol]158 mg/zBHujv87-699EqykfixaijSCCI Hospital LimaComment on above:Order Comment: Waived Testing in the ED is performed under the ED CLIA certificate #[id number].Result Comment: [id number] By: #### [id number] ####[facility] ([facility])[address] [place] [address] Glucose [Mass/Vol]86 mg/zVPtreoh72-444SrtldkcggnSCCI Hospital LimaComment on above:Order Comment: Waived Testing in the ED is performed under the ED CLIA certificate #[id number].Result Comment: [id number] By: #### [id number] ####[facility] ([facility])[address] [place], [place] [address]Mlqukcf [Mass/Vol]99 mg/vCVngmbq25-023RbqryxqlxvSCCI Hospital LimaComment on above:Order Comment: Waived Testing in the ED is performed under the ED CLIA certificate #[id number].Result Comment: [id number] By: #### [id number] ####[facility] ([employer])[address] [place], [place] [address]XLZFHZL-RVJqo 90-81-7005UXY IN PPP BY COAGULATION ASSAY1.59Fekj5.90-1.10UnSCCI Hospital LimaComment on above:Result Comment: ACCCP RECOMMENDED INR FOR WARFARIN THERAPY CONDITION INRPROPHYLAXIS OF VENOUS THROMBOSIS 2-3(HIGH-RISK SURGERY)TREATMENT OF VENOUS THROMBOSIS 2-3TREATMENT OF PULMONARY EMBOLISM 2-3PREVENTION OF SYSTEMIC EMBOLISM: 2-3 ACUTE MYOCARDIAL INFARCTION TISSUE HEART VALVES VALVULAR HEART DISEASE ATRIAL FIBRILLATION RECURRENT SYSTEMIC EMBOLISMMECHANICAL HEART VALVE 2.5-3.5 FROM: ORAL ANTICOAGULANTS. MECHANISM OF ACTION, CLINICAL EFFECTIVENESS, AND OPTIMAL THERAPE UTIC RANGE. CHEST 1995;108:231S-246S.Performed By: #### [id number] ####[facility] ([facility])[address] [place], [place] [address]EUSOJYCRCNQ TIME (PT) IN PPP BY COAGULATION ASSAY14.8 CqkxifdGqfgld00.3-14.8[facility] [place] HospitalComment on above:Performed By: #### [id number] ####[facility] ([facility])[address] [place], [place] [address]VQKNUNHD Ion 78-27-9764Cilwzriw I.cardiac [Mass/Vol]0.02 ng/mLNormal0.00-0.04UnSCCI Hospital Lima Comment on above:Performed By: #### [id number] ####[facility] (SHERON)[address] [facility] [place], [place] [address]KOXW AND SCREENon 80-51-9060ZM SCREENNegativeNormal ProMedica Toledo HospitalComment on above:Performed By: #### [id number] ####[facility],ABO group Nom (Bld)ONormalUnSCCI Hospital LimaComment on above:Performed By: #### [id number] ####[facility],RH TYPE IN BLOODPositiveNormalUniSalem City HospitalComment on above:Performed By: #### [id number] ####[facility],36on 72-13-876238NzkqtdObuygisbbqSalem City HospitalAlanine aminotransferase [Enzymatic activity/volume] in Serum or PlasmaOrdered By: Anju Lees on 70-67-4824ZCG [Catalytic activity/Vol]11 U/L 7-52[facility] HospitalAlbumin [Mass/volume] in Serum or Plasma by Bromocresol green (BCG) dye binding methoOrdered By: Anju Lees on 39-74-8952Wyzpvef BCG dye [Mass/Vol]3.7 g/dL3.5-5.7FOur Lady of Mercy Hospital - AndersonAlkaline phosphatase [Enzymatic activity/volume] in Serum or PlasmaOrdered By: Anju Lees on 66-49-0427HDZ [Catalytic activity/Vol]110 U/L34-104 [facility] HospitalAspartate aminotransferase [Enzymatic activity/volume] in Serum or PlasmaOrdered By: Anju Lees on 08-16-8896HCZ [Catalytic activity/Vol]16 U/L67-19YcwgcujykLicking Memorial HospitalBasophils Auto (Bld) [#/Vol]Ordered By: Anju Lees on 61-02-5706Ineijgotf (Bld) [#/Vol]0.1 10*3/uL0.0-0.2FOur Lady of Mercy Hospital - AndersonBasophils/100 WBC Auto (Bld)Ordered By: Anju Lees on 72-85-0054Hqrfaiazl/100 WBC (Bld)0.6 %. [facility] HospitalBilirubin.total [Mass/volume] in Serum or PlasmaOrdered By: Anju Lees on 76-09-5819Xozmntvyw [Mass/Vol]0.5 mg/dL 0.3-1.0[facility] HospitalCalcium [Mass/volume] in Serum or Plasma Ordered By: Anju Lees on 28-06-0449Rssekgn [Mass/Vol]9.5 mg/dL8.6-10.3 [facility] HospitalCarbon dioxide, total [Moles/volume] in Serum or PlasmaOrdered By: Anju Lees on 10-73-8688WS5 [Moles/Vol]31.9 mmol/L 21.0-31.0[facility] HospitalChloride [Moles/volume] in Serum or PlasmaOrdered By: Anju Lees on 71-07-1450Qqpytuiw [Moles/Vol]102 mmol/L 98-107[facility] HospitalCreatinine [Mass/volume] in Serum or PlasmaOrdered By: Anju Lees on 93-47-6557Ugunyamwbl [Mass/Vol]1.01 mg/dL 0.60-1.20[facility] HospitalEosinophils Auto (Bld) [#/Vol]Ordered By: Anju Lees on 00-96-3694Yrbfcucwgfy (Bld) [#/Vol]0.3 10*3/uL0.0-0.45 [facility] HospitalEosinophils/100 WBC Auto (Bld)Ordered By: Anju Lees on 86-68-3880Slpzqvcfqvf/100 WBC (Bld)3.1 %.[facility] HospitalErythrocyte distribution width Auto (RBC) [Ratio]Ordered By: Anju Lees on 93-23-7960Zxdycmfgrmx distribution width (RBC) [Ratio]16.3 % 11.9-15.3FOur Lady of Mercy Hospital - AndersonGlobulin Calc (S) [Mass/Vol]Ordered By: Anju Lees on 42-59-5042Iqkkwzzy (S) [Mass/Vol]2.0 g/dLLicking Memorial HospitalGlucose [Mass/volume] in Serum or PlasmaOrdered By: Anju Lees on 50-49-7668Gfrifdr [Mass/Vol]89 mg/jF64-077UbqdsxaagLicking Memorial HospitalHematocrit Auto (Bld) [Volume fraction]Ordered By: Anju Lees on 24-39-0645Rdnmpcpnif (Bld) [Volume fraction]33.3 %34.0-46.4FOur Lady of Mercy Hospital - AndersonHemoglobin [Mass/volume] in BloodOrdered By: Anju Lees on 28-61-9766Bjdqjzfemr (Bld) [Mass/Vol]11.1 g/dL11.8-15.4FOur Lady of Mercy Hospital - AndersonLeukocytes [#/volume] corrected for nucleated erythrocytes in Blood by Automated counOrdered By: Anju Lees on 92-88-1682DTK corrected for nucl RBC Auto (Bld) [#/Vol]9.1 10*3/uL3.8-11.6FOur Lady of Mercy Hospital - Anderson Lymphocytes Auto (Bld) [#/Vol]Ordered By: Anju Lees on 04-17-2023 Lymphocytes (Bld) [#/Vol]2.1 10*3/uL1.00-4.8[facility] Lymphocytes/100 WBC Auto (Bld)Ordered By: Anju Lees on 04-17-2023 Lymphocytes/100 WBC (Bld)22.7 %.[facility] HospitalMCH Auto (RBC) [Entitic mass]Ordered By: Anju Lees on 04-66-8264KCM (RBC) [Entitic mass] 27.9 pg24.7-34.3FOur Lady of Mercy Hospital - AndersonMCHC Auto (RBC) [Mass/Vol] Ordered By: Anju Lees on 30-89-4989OOJB (RBC) [Mass/Vol]33.4 g/dL32.0-35.0 [facility] CenterMCV Auto (RBC) [Entitic vol]Ordered By: Anju Lees on 23-27-1138GUO (RBC) [Entitic vol]83.3 rG74-250DnfezhlfcLicking Memorial HospitalMonocytes Auto (Bld) [#/Vol]Ordered By: Anju Lees on 27-84-7287Lyeoycexl (Bld) [#/Vol]0.6 10*3/uL0.0-0.8[facility] HospitalMonocytes/100 WBC Auto (Bld)Ordered By: Anju Lees on 04-17-2023 Monocytes/100 WBC (Bld)6.5 %.[facility] HospitalNeutrophils Auto (Bld) [#/Vol]Ordered By: Anju Lees on 22-93-2915Ckoarwhgclk (Bld) [#/Vol] 6.1 10*3/uL1.8-7.7FOur Lady of Mercy Hospital - AndersonNeutrophils/100 WBC Auto (Bld)Ordered By: Anju Lees on 64-87-9417Gevjhkdvhju/100 WBC (Bld)67.1 %. [facility] HospitalNo Panel InformationOrdered By: Anju Lees on 57-33-6315Vjvxfrisb GFR (CKD-EPI)56.627 mL/MinLicking Memorial HospitalPharmacy Creatinine Clearance (ChemN/[facility] Nucleated erythrocytes [Presence] in Blood by Automated countOrdered By: Anju Lees on 71-17-4083Grnduveoe RBC Auto Ql (Bld)0.1 /100{WBC}0-0.5FOur Lady of Mercy Hospital - AndersonPlatelet mean volume Auto (Bld) [Entitic vol]Ordered By: Anju Lees on 03-40-8385Mpixmciz mean volume (Bld) [Entitic vol]8.7 fL 6.3-10.7FOur Lady of Mercy Hospital - AndersonPlatelets Auto (Bld) [#/Vol]Ordered By: Anju Lees on 54-95-0254Lleevmalw (Bld) [#/Vol]249 10*3/eH053-551PbhnrkgazLicking Memorial HospitalPotassium [Moles/volume] in Serum or PlasmaOrdered By: Anju Lees on 96-88-4238Iefwfodxb [Moles/Vol]4.2 mmol/L3.5-5.1FOur Lady of Mercy Hospital - AndersonProtein [Mass/volume] in Serum or PlasmaOrdered By: Anju Lees on 91-11-5446Zsrsgqt [Mass/Vol]5.7 g/dL6.4-8.9[facility] HospitalRBC Auto (Bld) [#/Vol]Ordered By: Anju Lees on 68-96-7850WPX (Bld) [#/Vol]4.00 10*6/uL3.60-5.00Wayne Hospitalerum or plasma albumin/globulin mass ratioOrdered By: Anju Lees on 04-17-2023 Albumin/Globulin [Mass ratio]1.9 {ratio}Wayne Hospitalerum or plasma anion gap determinationOrdered By: Anju Lees on 43-09-7004Xbmme gap [Moles/Vol]10.3 mmol/L6.0-15.0Wayne Hospitalodium [Moles/volume] in Serum or PlasmaOrdered By: Anju Lees on 54-18-5443Yanblg [Moles/Vol]140 mmol/S052-724MetzrozycLicking Memorial HospitalUrea nitrogen [Mass/volume] in Serum or PlasmaOrdered By: Anju Lees on 73-56-4514Wslh nitrogen [Mass/Vol]23 mg/dL7-25[facility] HospitalWBC Auto (Bld) [#/Vol]Ordered By: Anju Lees on 93-50-0076ZDP (Bld) [#/Vol]9.1 10*3/uL 3.8-11.6FOur Lady of Mercy Hospital - AndersonECHOCARDIO M/2D COMPLETEon 05-29-2022 ECHOCARDIO M/2D COMPLETEPatient: SHAYY MAYNARD Exam Date: 05/29/2022 : 1945 Gender:F Ordering : DR VELASQUEZ BUNCH . Admission #: [id number] Family : Order #: [id number] CLICK HERE TO VIEW EXAM ECHOCARDIOGRAM REPORT [...] Shore M.D. on 05/30/2022 at 18:32[facility] BRAIN WO CONon 27-82-4723RDC BRAIN WO CONEXAMINATION: MRI BRAIN WO CON, [...] Electronically authenticated by: RENATA GAYTAN Date: 2022-05-29 13:51[facility] CAROTID ART BILon 09-12-3111UF CAROTID ART BILEXAMINATION: US CAROTID ART JONY [...] Electronically authenticated by: RENATA GAYTAN Date: 2022-05-29 12:55[facility] RehabilitationCovid-19 PCR (CVDTBH)on 56-37-3424KPXB-CoV-2 (COVID-19) RNA ARMIN+probe Ql (Unsp spec)Not detectedNormalNOT DETECTEDThe [facility] Comment on above:Result Comment: This test is not yet approved or cleared by the [place] FDA. When there are no FDA-approved or cleared tests available, and other criteria are met, FDA can make tests available under an emergency access mechanism called an Emergency Use Authorization (EUA). The EUA for this test is supported by the [employer] Laboratory Technician of Health and Human Service's (HHS's) declaration [...] consistent with SARS-CoV-2.Performed By: #### CVDTBH #### [facility] [address] [address] [address] Samuel KangAmbulatory Clinical Summaryon 50-00-0244Knzjvogftd Clinical Summary{38-s7-vw-60-25-40-81-eb-5q-lp-00-48-b5-9e-fb-7c}CD:028902BzpvllDmbngpKettering Health Washington TownshipPatient Educationon 89-63-3625Mubnfhj EducationNutrition Calorie Counting for Weight Loss Calories [...] serving sizes. You could (more content not included)...[facility] HospitalUrology Office/Clinic Noteon 84-52-8779Rybaqne Office/Clinic NoteChief Complaint Pt is here for [...] MD, Jude Farias URO In 6 months [phone] Additional Instructions: Patient Education Calorie Counting for Weight Loss Anastasia Marr, personally scribed for Dr. Stewart on 09/11/2020 16:08:41. . Documentation recorded by the scribe, Anastasia Cabral, accurately reflects the services(s) I performedand decisions [...] Recorded SARS-CoV-2 (COVID-19) mR (more content not included)...[facility] HospitalComment on above:Result Comment: Electronically Signed By: TR MACIAS, Thuan Don\.br\Date and Time Signed: 09/11/20 16:11 EDT\.br\Electronically Co- Signed By: Anastasia Cabral\.br\Date and Time Co-Signed: 09/11/20 16:08 EDT Ambulatory Clinical Summaryon 74-96-7119Nzdfkjkcwy Clinical Summary {19-e7-j2-r0-84-mb-60-02-gh-t0-xc-96-aa-15-31-5f}CD:988877ClukniGullrlKettering Health Washington TownshipPatient Educationon 04-26-5450Vkkospl EducationUrology Urinary Incontinence Urinary incontinence refers to [...] stimulation). ? For women, using a medical driver to prevent urine leaks. This is a [...] after experiencing incontinence. General instructions ? Take lluo-oyi-kicdzux and prescription medicines only as (more content not included)...[facility] HospitalUrology Office/Clinic Noteon 07-58-6697Ldoncuu Office/Clinic NoteChief Complaint 2 week PO This [...] Jude Farias, URO [address] [place] [address]- Additional Instructions: 1mos. f/u Patient Education Urinary [...] with dilation of urethral (more content not included)...[facility] HospitalComment on above: Result Comment: Electronically Signed By: Jude Finley Jr., MD\.br\Date and Time Signed: 08/08/2110:28 EDT\.br\Electronically Co-Signed By: Kisha Stevens MA\.br\Date and Time Co-Signed: 08/08/20 11:15 EDTOperative Reporton 26-29-2485Hojfvqfme [id number]#1.00CD:127 [facility] HospitalPathology Noteon 35-26-4849Fmiohcrue Note [id number]#1.00CD:127NormMercy Health – The Jewish HospitalComment on above:Result Comment: Electronically Signed By: Jude Finley Jr., MD\.br\Date and Time Signed: 08/07/2110:22 EDTECG 12-Leadon 58-24-2096ZLQ 12-Ykdn166.170.192.36.70256251359311254033CM65S#1.00CD:[address] [place] [address] Note-Physicianon 63-12-2064LM Note-Physician [id number]#1.00CD:[address] [place], [place] [address]Lab Reportson 51-46-8428Qky Reports [id number]#1.00CD:[address] [place], [place] [address]Lab Jcoaxjj[id number]#1.00CD:[address] [place], [place] [address]RAD - MISCon 67-23-5423UHK - MISC [id number]#1.00CD:[address] [place], [place] [address]Insurance Correspondence Officeon 09-17-2123Omqdnsimr Correspondence [id number]#1.00CD:[address] [place], [place] [address]Operative Reporton 64-84-5422Sdispinvs Report [id number]#1.00CD:[address] [place], [place] [address]Physician Orderon 03-29-5265Mxcacwseb Order [id number]#1.00CD:[address] [place], [place] [address]Pre-Authorization for Medical Treatmenton 49-64-1906Dwu-Authorization for Medical Otalzmg[id number]#1.00CD:[address] [place], [place] [address]Ambulatory Clinical Summaryon 97-84-3216Urrghgvwnq Clinical Summary{65-op-97-kk-37-5m-46-69-22-43-74-12-45-4e-56-ed}CD:854474FresxeKettering Health Miamisburg Educationon 64-71-7434Qbpvekq Education Obstetrics and Gynecology Urethral Vaginal Sling [...] including vitamins, herbs, eye drops, creams, and voan-wyh-rdiyjji medicines. ? Any problems you or family [...] diabetes medicines or blood thinners. ? Taking emnu-qbz-wxnurdd medicines, vitamins, herbs, and supplements. ? Taking [...] not intended to r (more content not included)...[facility] HospitalUrology Office/Clinic Noteon 70-96-6626Iucmkll Office/Clinic NoteChief Complaint 3 week follow up This patient is a 75-year-old female with a history of a grade 2 midline cystocele. She is here today to discuss treatment options. She does have some symptoms of stress incontinence. She underwent cystoscopic examination with dilation of her urethra on May 08 2020. [facility] Staff Shayy is a 75 y.o. female [...] urine and/or bladder capacity by US- non-imaging 43210 Urnls Dip Stick Auto w/o Microscopy POC 16510 Urology Procedure Order 2. Cystocele with prolapse [...] Jude Farias, URO [facility] [address] [place] [address]- Additional Instructions: Patient Education Urethral Vaginal Sling [...] History of UTI Hypertensio (more content not included)...[facility] Comment on above:Result Comment: Electronically Signed By: Tushar Nunez MD, Jude Farias\.br\Date and Time Signed: 07/11/2113:49 EDT\.br\Electronically Co-Signed By: Libby Chambers MA\.br\Date and Time Co-Signed: 07/11/20 14:30 EDTAmbulatory Clinical Summaryon 51-72-2354Wktkxrpnso Clinical Summary {l1-99-71-85-j4-3m-0x-46-11-8v-46-5q-3f-aa-b3-7a}CD:175343NlqozzHwswyvKettering Health Washington TownshipPatient Educationon 52-23-1360Xhjgozc EducationUrology Urethral Dilation Urethral dilation is a [...] including vitamins, herbs, eye drops, creams, and yffj-dyc-fxtjnjc medicines. ? Any problems you or family [...] tells you to take them. ? Taking lpof-qbo-ahfyuiw medicines, vitamins, herbs, and supplements. General instructions [...] these instructions at home: Medicines ? Take hcbe-pto-fprrxvo and prescription medicines only as told by [...] to prevent or treat constipation: ? Take vtkj-phf-piiripz or prescription medicines. ? Eat foods that [...] urinate. ? You pa (more content not included)...[facility] HospitalUrology Office/Clinic Noteon 75-50-5459Bbxulvh Office/Clinic NoteChief Complaint Patient is here for [...] will require surgical repair for her cystocele. [facility] Staff Mariama is a 75 y.o. female [...] Urnls Dip Stick Auto w/o Microscopy POC 03661 I have reviewed the previous health record information and history for this patient from Dr. Finley Follow-up With When Contact Information Tushar Nunez MD, Jude Farias, URO [facility] [address], [place] [address]- Additional Instructions: 2 weeks Patient Education Urethral Dilation Maria Del Carmen Marr personally scribed for Dr. Finley on 06/20/2020 14:23:50. . Documentation recorded by the melonyibMaria Del Carmen james, accurately reflects the services(s) I performedand decisions made by me. Authenticated by Dr. Finley on 06/20/2020 14:34:50. Problem List/Past Medical History Ongoing Arthritis Asthma Bladder infection Bladder outlet obstruction COPD mixed type (more content not included)...[facility] Comment on above:Result Comment: Electronically Signed By: Tushar Nunez MD, Jude Farias\.br\Date and Time Signed: 06/20/2113:36 EDT\.br\Electronically Co-Signed By: Maria Del Carmen Hernandez MA\.br\Date and Time Co-Signed: 06/20/2113:24 EDTCoding Summary. on 02-52-6689Dgafbg Summary. CD:673667AU:9911149TXz1nZl+PGhlYWQ+HD7TDNPxZ46gyBFlgB2SI0qYOI3CYWHDSDBDPS5JQK3wf FT7ZYtxU7WrqcSc [file] bGxh (more content not included)...[facility] HospitalConsent for Procedure/Surgeryon 50-32-0299Dgixquf for Procedure/Surgery [id number]#1.00CD:127St. [facility]'s HospitalConsent for Treatmenton 28-49-3675Bxudbgy for Treatment [id number]#1.00CD:[address] [place], [place] [address]Discharge Instructionson 03-61-1923Ijqpjfxwe Instructions [id number]#1.00CD:127St. [facility]'s HospitalIntraOperative Documentson 76-70-3690SwxgkJmptbcmzz Documents [id number]#1.00CD:[address] [place], [place] [address]Main OR Intraoperative Recordon 81-70-5166Aazq OR Intraoperative Record IntraOp Document Type FTURO Summary Primary Physician: Jude Finley Jr., MD Finalized Date/Time: 06/15/20 15:02:47 Pt. Name: ALEXSHAYY/Sex: 1945 Female Med Rec #: [id number] Physician: Jude Finley Jr., MD Financial #: [id number] Pt. Type: O Room/Bed: / Admit/Disch: 06/15/20 13:40:05 - Institution: Case Times FTURO Entry 1 Patient Times In Room 06/15/20 14:48:00 Out Room 06/15/20 15:02:00 Procedure Times Start 06/15/20 14:50:00 Stop 06/15/20 14:52:00 Anesthesia Times Last Modified By: Vishal Manuel RN 06/15/20 15:02:42 Case Attendance FTURO Entry 1 Entry 2 Entry 3 Case Attendee Tushar Nunez MD, Jude Herrera VALET PARKER, Vishal Campbell RN Role Performed Surgeon - Primary Scrub - Primary Process Operator - Primary Time In 06/15/20 14:48:00 06/15/20 14:48:00 06/15/20 14:48:00 Time Out 06/15/20 15:02:00 06/15/20 15:02:00 06/15/20 15:02:00 Procedure CYSTOSCOPY LOCAL(.) CYSTOSCOPY LOCAL(.) CYSTOSCOPY LOCAL(.) Comments Last Modified By: Vishal Manuel RN, RN, Vishal Naqvi RN 06/15/20 15:02:43 06/15/20 [...] Jude Finley Jr., MD, Verified (If Participants [facility] CenterPauly, Applicable) Vishal Manuel RN Time Out Complete [...] Signatures Signed By: Vishal Manuel RN 06/15/20 15:02NoKettering Health Washington TownshipMain OR Preoperative Recordon 21-86-9071Kawm OR Preoperative RecordHolding Area Document Type FTURO Summary Primary Physician: Jude Finley Jr., MD Finalized Date/Time: 06/15/20 14:34:27 Pt. Name: SHAYY MAYNARD /Sex: 1945 Female Med Rec #: [id number] Physician: Jude Finley Jr., MD Financial #: [id number] Pt. Type: O Room/Bed: / Admit/Disch: 06/15/20 [...] LPN 06/15/20 14:25 Vishal Manuel RN 06/15/20 14:34NoKettering Health Washington TownshipOperative Reporton 09-30-2184Ukwlqytec ReportPatient: SHAYY MAYNARD Age: 75 years Sex: [...] urine. The Urethra was dilated to: 24 [place] w/ sounds. Devices Implanted: None. Removal: Cystoscope is removed, The patient tolerated it well. Postoperative Information Discharge: Patient is discharged home with antibiotic coverage, Follow up arranged, Office visit will be planned to make arrangements for repair of cystocele..[facility] HospitalComment on above:Result Comment: Electronically Signed By: Tushar Nunez MD, Jude Farias\.br\Date and Time Signed: 06/15/2113:59 EDTPre-Authorization for Medical Treatmenton 69-49-5251Hnm- Authorization for Medical Treatment [id number]#1.00CD:127NoKettering Health Washington TownshipAmbulatory Clinical Summaryon 18-77-7264Twfvdeiwes Clinical Summary {4y-2q-cg-68-a6-80-41-62-62-66-r5-3x-f2-02-f9-5b}CD:909229JnnwaqSjcgktKettering Health Washington TownshipPatient Educationon 24-88-3347Sndamzz EducationUrology Urinary Incontinence Urinary incontinence refers to [...] stimulation). ? For women, using a medical driver to prevent urine leaks. This is a [...] after experiencing incontinence. General instructions ? Take fscs-gzy-bzgpwqc and prescription medicines only as (more content not included)...NormalFormerly [facility] Centerer [facility] Agnes HospitalUrology Office/Clinic Noteon 52-32-5342Otiznsm Office/Clinic NoteChief Complaint Patient is here for a follow up to [facility] for ball like object HPI Staff Shayy is a 75 y.o. female here for follow up to [place] [facility] for bladder hanging out, patient insists on planning surgery. Previous Dx: bladder infection, bladder outlet obstruction, dysuria, flank pain, gross hematuria, history of UTI, retention of urine, urethral stricture. 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 Patient was seen at [place] [facility] on 06/07/20 for a ball like [...] When Contact Information Jude Finley Jr., [place] [phone] Additional Instructions: Patient Education Urinary Incontinence Anastasia [...] Flank pain Gross hematuria (more content not included)...[facility] Comment on above:Result Comment: Electronically Signed By: Tushar Nunez MD, Jude Farias\.br\Date and Time Signed: 06/12/2109:30 EDT\.br\Electronically Co-Signed By: Anastasia Cabral\.br\Date and Time Co-Signed: 06/12/20 10:24 EDTCoding Summary.on 53-82-1747Zpvwch Summary.CODING DATE: 05/23/2020 FINAL [facility] STATUS: Home (Routine DC) PAYOR: Medicare [...] By: Ryann Villegas Date Saved: 05/23/2020 09:34 amNormalUniversity Hospitals Ahuja Medical CenterConsenton 08-88-488[id number]#1.00CD:127NormalUniversity Hospitals Ahuja Medical CenterConsent for Procedure/Surgeryon 42-14-7861Tselfgu for Procedure/H[id number]#1.00CD:127Normal [facility] Agnes HospitalConsent for Treatmenton 98-70-5080Teeydcv for Niidntitx5[id number]#1.00CD:Trip St. Agnes HospitalConsent for Treatment [id number]#1.00CD:JulianaSt. Rita's HospitalDischarge Instructionson 73-83-8429Hrmkjdhgk Instructions [id number]#1.00CD:JulianaSt. Rita's HospitalIntraOperative Documentson 47-10-0525GrrrnKjefyktos Documents [id number]#1.00CD:127St. [facility]'s HospitalMain OR Intraoperative Recordon 00-33-2236Gjdn OR Intraoperative Record IntraOp Document Type FTURO Summary Primary Physician: Jude Finley Jr., MD Finalized Date/Time: 05/18/20 14:11:35 Pt. Name: MARIAMA MAYNARD Srinath Grimes/Sex: 1945 Female Med Rec #: [id number] Physician: Jude Finley Jr., MD Financial #: [id number] Pt. Type: O Room/Bed: / Admit/Disch: 05/18/20 13:20:33 - Institution: Case Times FTURO Entry 1 Patient Times In Room 05/18/20 13:57:00 Out Room 05/18/20 14:08:00 Procedure Times Start 05/18/20 13:58:00 Stop 05/18/20 13:59:00 Anesthesia Times Last Modified By: Myah RN, CNOR, Luz Flowers 05/18/20 14:09:40 Case Attendance FTURO Entry 1 Entry 2 Entry 3 Case Attendee Tushar Nunez MD, Jude Glasgow RN, CNOR, Luz Cormier VALET PARKER, Vishal Yo Role Performed Surgeon - Primary Process Operator - Primary Scrub - Primary Time In 05/18/20 13:57:00 05/18/20 13:57:00 05/18/20 13:57:00 Time Out 05/18/20 14:03:00 05/18/20 14:03:00 05/18/20 14:03:00 Procedure CYSTOSCOPY LOCAL WITH CYSTOSCOPY LOCAL WITH CYSTOSCOPY LOCAL WITH URETHRAL DILATION(.) URETHRAL DILATION(.) URETHRAL DILATION(.) Comments Last Modified By: ETHAN Glasgow RNORLuz RN, CNOR, Lou Ann Blank RN, CNOR, [...] Nunez MD, Jude Farias, Verified (If Participants Myah MELGAR, ETHANOR, Luz Applicable) Casa Flowers CST, Kimberly A [...] 14:02 RYLAND Glasgow RN, Lou Ann 05/18/20 14:11[facility] HospitalMain OR Preoperative Recordon 52-10-7083Dbxs OR Preoperative RecordHolding Area Document Type FTURO Summary Primary Physician: Jude Finley Jr., MD Finalized Date/Time: 05/18/20 13:59:17 Pt. Name: MARIAMA MAYNARD/Sex: 1945 Female Med Rec #: [id number] Physician: Jude Finley Jr., MD Financial #: [id number] Pt. Type: O Room/Bed: / Admit/Disch: 05/18/20 13:20:33 - Institution: Case Times Holding FTURO Pre-Care Text: Verifies consent for planned procedure, identifies individual values and wishes concerning care, includes family members in perioperative teaching Secures patient's records' belongings, and valuables, maintains patient's dignity and privacy, and maintains patient confidentiality Entry 1 In Holding 05/18/20 13:39:00 Outcomes Met? Yes Last Modified By: Sahbana Terrell LPN 05/18/20 13:39:57 Post-Care Text: The [...] 13:42 RYLAND Glasgow RN, Lou Ann 05/18/20 13:59NoKettering Health Washington TownshipOperative Reporton 14-71-3739Wluswvthq ReportPatient: MARIAMA MAYNARD Age: 74 years Sex: [...] urine. The Urethra was dilated to: 28 [place] w/ sounds. Devices Implanted: None. Removal: Cystoscope is removed, The patient tolerated it well. Postoperative Information Discharge: Patient is discharged home with antibiotic coverage, Follow up arranged.[facility]'s HospitalComment on above:Result Comment: Electronically Signed By: Tushar Nunez MD, Jude Pham.shane\Date and Time Signed: 05/18/2113:02 EDTAmbulatory Clinical Summaryon 29-21-7327Jayoyzsnbx Clinical Summary{62-c9-9t-69-ui-79-5x-c6-u9-34-4r-92-65-93-fe-5a}CD:633237AxzuxrGurwycKettering Health Washington TownshipPatient Educationon 36-84-8845Sgimlkl EducationUrinary Frequency The number of times a [...] your urinary frequency. Itis (more content not included)...NormalUniversity Hospitals Ahuja Medical CenterUrology Office/Clinic Noteon [id number] Office/Clinic NoteChief Complaint decreased voiding This patient [...] Will order Local anesthesia. ABX sent to [facility] in [place]. 2. Retention of urine (R33.9: Retention of [...] procedure, # 2 cap(s), Refills(s) 0, Pharmacy: [facility]/pharmacy #[id number], 163, cm, 05/11/20 8:31:00 EDT, Height/Length Dosing, 64.2, kg, 05/11/20 8:31:00 EDT, W... Measure Post Void residual urine and/or bladder capacity by US- non-imaging 96374 Urnls Dip Stick Auto w/o Microscopy POC 88632 I have reviewed the previous health record information and history for this pt. from Dr. Finley. Follow-up With When Contact Inf (more content not included)...[facility] Rita's HospitalComment on above:Result Comment: Electronically Signed By: Tushar Nunez MD, Jude Farias\.br\Date and Time Signed: 05/11/2109:45 EDT\.br\Electronically Co- Signed By: Kisha Stevens MA.br\Date and Time Co-Signed: 05/11/20 08:53 EDT Ambulatory Clinical Summaryon [id number] Clinical Summary {[id number]}CD:[id number] Health Washington TownshipPatient Educationon [id number] EducationObstetrics and Gynecology Acute Urinary Retention, Female [...] lead to aurinary tract infection. Only take ihkn-jrs-tiditbr or prescription medicines for pain, discomfort, or fever as directed by your caregiver. SEEK IMMEDIATE MEDICAL CARE IF: You develop chills, fever, or show signs of generalized illness that occurs prior to seeing your caregiver. Document Released: 02/09/2007 Document Revised: 05/04/2012 Document Reviewed: 01/12/2010 ExitCare? Patient Information ?2013 [facility]'s HospitalUrology Office/Clinic Noteon [id number] Office/Clinic NoteChief Complaint f/u to cysto UD [...] Urnls Dip Stick Auto w/o Microscopy POC 60065 3. Dysuria (R30.0: Dysuria) Mild burning w/ urination. I have reviewed the previous health record information and history for this pt. from Dr. Finley. Follow-up With When Contact Information Tushar Nunez MD, Jude Farias [address] [place] [address]- Additional Instructions: 1mos. w/ pVR Patient Education [...] furosemide 20 mg T (more content not included)...St. Rita's HospitalComment on above:Result Comment: Electronically Signed By: Tushar Nunez MD, Jude Farias\.br\Date and Time Signed: 01/04/2012:26 EST\.br\Electronically Co- Signed By: Kisha Stevens MA\.br\Date and Time Co-Signed: 01/04/20 12:01 EST Operative Reporton [id number] Report [id number]:127St. Rita's HospitalCult,Bloodon [id number],BloodSpecimen Description .BLOOD Special Requests 3ML LT A.C. Culture NO GROWTH 6 DAYS Report Status FINAL 10/18/2019[facility]red Hospital DaytonComment on above:Performed By: #### CDP, CP, LIP, TROPI, LIPRF, GLYHGB #### [facility] [address] [place] [address] Mottler Operator: Carlo Mcmanus,BloodSpecimen Description .BLOOD Special Requests back lt arm 3ml Culture NO GROWTH 6 DAYS Report Status FINAL 10/18/2019[facility] Hospital DaytonComment on above:Performed By: #### CDP, CP, LIP, TROPI, LIPRF, GLYHGB #### [facility] [address] [place] [address] Mottler Operator: Carlo Mcmanus,Urineon [id number],UrineSpecimen Description .CLEAN CATCH URINE Special Requests NOT REPORTED Culture STAPHYLOCOCCUS SPECIES, COAGULASE NEGATIVE >286190 CFU/ML Report Status FINAL 10/17/2019 SUSCEPTIBILITY Organism [...] NOT REPORTED Trimethoprim/Sulfa 20 SUSCEPTIBLE Vancomycin 1 SUSCEPTIBLENormalFayette County Memorial HospitalComment on above: Performed By: #### CDP, CP, LIP, TROPI, LIPRF, GLYHGB #### [facility] [address] [place] [address] Mottler Operator: Josh Mcmanus Metab w/rfx MGon 10-16-2019(cont.)Normal [facility] Memorial HospitalComment on above:Result Comment: Average GFR for 70 or more years old: 75 mL/min/1.73sq m Chronic Kidney Disease: <60 mL/min/1.73sq m Kidney failure: <15 mL/min/1.73sq m eGFR calculated using average adult body mass. Additional eGFR calculator available at: http://www.Kazeon.Mobile Event Guide/multiple_crcl_2012.htmPerformed By: #### KRIS, CP, LIP, TROPI, LIPRF, GLYHGB #### [facility] [address] [place], [place] [id number] Mottler Operator: Brandon Anaya MDAnion gap [Moles/Vol]13 mmol/LNormal9-17F[facility] Memorial HospitalComment on above:Performed By: #### CDP, CP, LIP, TROPI, LIPRF, GLYHGB #### [facility] [address] [place], [place] [id number] Mottler Operator: Brandon Anaya MDCalcium [Mass/Vol]8.6 mg/dLNormal8.6-10.4F[facility] Memorial HospitalComment on above:Performed By: #### CDP, CP, LIP, TROPI, LIPRF, GLYHGB #### [facility] [address] [place] [address] Mottler Operator: NEHAL Mcmanushloride [Moles/Vol]97 mmol/PJpc91-203QahtxFayette County Memorial HospitalComment on above:Performed By: #### CDP, CP, LIP, TROPI, LIPRF, GLYHGB #### [facility] [address] [place] [address] Mottler Operator: Brandon Anaya MDCO2 [Moles/Vol]25 mmol/NWvcgzs65-57XswjyFayette County Memorial HospitalComment on above:Performed By: #### CDP, CP, LIP, TROPI, LIPRF, GLYHGB #### [address] [address] Mottler Operator: NEHAL Mcmanusreatinine [Mass/Vol]0.42 mg/dLLow0.50-0.90F[facility] County Memorial HospitalComment on above:Performed By: #### CDP, CP, LIP, TROPI, LIPRF, GLYHGB #### [facility] [address] [place] [address] Mottler Operator: Brandon Anaya MDGFR, Amer>60Normal>60[facility] HospitalComment on above:Performed By: #### CDP, CP, LIP, TROPI, LIPRF, GLYHGB #### [facility] [address] [place] [address] Mottler Operator: Brandon Anaya MDGFR,non Amer>60Normal>60[facility] HospitalComment on above:Performed By: #### CDP, CP, LIP, TROPI, LIPRF, GLYHGB #### [facility] [address] [place] [address] Mottler Operator: Brandon Anaya MDGlucose [Mass/Vol]87 mg/aYMaxnno64-31KtotoMercy Medical CenterComment on above:Performed By: #### CDP, CP, LIP, TROPI, LIPRF, GLYHGB #### [facility] [address] [place] [address] Mottler Operator: BLADIMIR Mcmanusotassium [Moles/Vol]3.7 mmol/LNormal3.7-5.3 [facility] HospitalComment on above:Performed By: #### CDP, CP, LIP, TROPI, LIPRF, GLYHGB #### [facility] [address] [place] [address] Mottler Operator: FABIANA Mcmanusodium [Moles/Vol]135 mmol/EBriruy302-113OjmpvFayette County Memorial HospitalComment on above:Performed By: #### CDP, CP, LIP, TROPI, LIPRF, GLYHGB #### [facility] [address] [place] [address] Mottler Operator: Brandon Anaya MDUrea nitrogen [Mass/Vol]14 mg/dLNormal8-23F[facility] HospitalComment on above:Performed By: #### CDP, CP, LIP, TROPI, LIPRF, GLYHGB #### [facility] [address] [place] [address] Mottler Operator: RADHA Mcmanus/CRE RatioNOT REPORTEDNormal9-20[facility] HospitalComment on above:Performed By: #### CDP, CP, LIP, TROPI, LIPRF, GLYHGB #### [facility] [address] [place] [address] Mottler Operator: FABIANA Mcmanustaging:NOT REPORTEDNormalFayette County Memorial HospitalComment on above:Performed By: #### CDP, CP, LIP, TROPI, LIPRF, GLYHGB #### [facility] [address] [place] [address] Mottler Operator: Radha Mcmanuscrittenden county hospital Metabolic Panel w/ Reflex to MGon [id number] gap [Moles/Vol]13 mmol/L9 - 17 mmol/LMBrown Memorial Hospital, KYBun/Cre RatioNOT REPORTEDMerSumma Health, KYCalcium [Mass/Vol]8.6 mg/dL8.6 - 10.4 mg/dLUniversity Hospitals Elyria Medical Center, KYChloride [Moles/Vol]97 mmol/LLow98 - 107 mmol/LMBrown Memorial Hospital, KYCO2 [Moles/Vol]25 mmol/L20 - 31 mmol/LMPremier Health Miami [facility] [place], [place] Creatinine [Mass/Vol]0.42 mg/dLLow0.5 - 0.9 mg/dLUniversity Hospitals Elyria Medical Center, KYGFR >60>60 mL/minUniversity Hospitals Elyria Medical Center, KYGFR Non->60>60 mL/min [facility], KYGFR/1.73 sq M predicted among non-blacks MDRD (S/P/Bld) [Vol rate/Area][facility], KYComment on above:Average GFR for 70 or more years old: 75 mL/min/1.73sq m Chronic Kidney Disease: <60 mL/min/1.73sq m Kidney failure: <15 mL/min/1.73sq m eGFR calculated using average adult body mass. Additional eGFR calculator available at: http://www.Kazeon.Mobile Event Guide/multiple_crcl_2012.htm GFR/1.73 sq M predicted among non-blacks MDRD (S/P/Bld) [Vol rate/Area]NOT REPORTEDUniversity Hospitals Elyria Medical Center, KYGlucose [Mass/Vol]87 mg/dL70 - 99 mg/dLUniversity Hospitals Elyria Medical Center, KYInterpretation and review of laboratory resultsAbnormalUniversity Hospitals Elyria Medical Center, KYPotassium [Moles/Vol]3.7 mmol/L3.7 - 5.3 mmol/LMBrown Memorial Hospital, KYSodium [Moles/Vol]135 mmol/L135 - 144 mmol/LMBrown Memorial Hospital, KYUrea nitrogen [Mass/Vol]14 mg/dL8 - 23 mg/dLUniversity Hospitals Elyria Medical Center, KYCBC auto differentialon [id number] (Bld) [#/Vol]0.04 10*3/[facility], KYBasophils/100 WBC (Bld)0 %0 - 2 %[facility], KYDifferential TypeNOT REPORTEDUniversity Hospitals Elyria Medical Center, KYEosinophils (Bld) [#/Vol]0.10 10*3/[facility], [place] Eosinophils/100 WBC (Bld)1 %1 - 4 %[facility], KYErythrocyte distribution width (RBC) [Ratio]14.6 %High11.8 - 14.4 %[facility], KYHematocrit (Bld) [Volume fraction]40.2 %36.3 - 47.1 %[facility], KYHemoglobin (Bld) [Mass/Vol]12.6 g/dL11.9 - 15.1 g/dLUniversity Hospitals Elyria Medical Center, KYImmature granulocytes (Bld) [#/Vol]0.08 10*3/[facility], KYImmature granulocytes (Bld) [#/Vol] 1 %Qmrg5JjmpeUniversity Hospitals Elyria Medical Center, KYInterpretation and review of laboratory results AbnormalUniversity Hospitals Elyria Medical Center, KYLymphocytes (Bld) [#/Vol]3.05 10*3/[facility] [place], KYLymphocytes/100 WBC (Bld)32 %24 - 43 %[facility], KYMCH (RBC) [Entitic mass]29.0 pg25.2 - 33.5 pgUniversity Hospitals Elyria Medical Center, KYMCHC (RBC) [Mass/Vol]31.3 g/dL28.4 - 34.8 g/dLUniversity Hospitals Elyria Medical Center, KYMCV (RBC) [Entitic vol]92.4 fL82.6 - 102.9 fLUniversity Hospitals Elyria Medical Center, KYMonocytes (Bld) [#/Vol]0.76 10*3/uLMercy Health Fairfield Hospital [place], KYMonocytes/100 WBC (Bld)8 %3 - 12 %[facility], KYPlatelet mean volume (Bld) [Entitic vol]10.6 fL8.1 - 13.5 fLUniversity Hospitals Elyria Medical Center, OHPlatelets (Bld) [#/Vol]216 10*3/uLHudson, KYPlatelets (Bld) [#/Vol]NOT REPORTEDHudson, KYRBC (Bld) [#/Vol]4.35 10*6/uL3.95 - 5.11 m/uLUniversity Hospitals Elyria Medical Center, [place] RBC morphology finding Nom (Bld)ANISOCYTOSIS PRESENTHudson, [place] Segmented neutrophils/100 WBC (Bld)58 %36 - 65 %[place], KYSegs Absolute5.61[place], KYWBC (Bld) [#/Vol]9.6 10*3/uLHudson, [place] WBC (Bld) [#/Vol]0.0 10*3/uL0.0 per 100 WBCUniversity Hospitals Elyria Medical Center, OHWBC MorphologyNOT REPORTEDHudson, KYCB with Diffon [id number]. Basophil0.04 k/uL Normal0.00-0.20[facility] HospitalComment on above:Performed By: #### CDP, CP, LIP, TROPI, LIPRF, GLYHGB #### [facility] [address] [place] [address] Mottler Operator: Marie Mcmanus.Imm.Granulocyte0.08 k/uLNormal0.00-0.30[facility] Memorial HospitalComment on above:Performed By: #### CDP, CP, LIP, TROPI, LIPRF, GLYHGB #### [facility] [address] [place] [address] Mottler Operator: Marie Mcmanus.Neutrophil (Seg)5.61 k/uLNormal1.50-8.10 [facility] HospitalComment on above:Performed By: #### CDP, CP, LIP, TROPI, LIPRF, GLYHGB #### [facility] [address] [place] [address] Mottler Operator: Brandon Madoff, MDBasophils/100 WBC (Bld)0 %Normal0-2MMercy Medical CenterComment on above:Performed By: #### CDP, CP, LIP, TROPI, LIPRF, GLYHGB #### [facility] [address] [place] [address] Mottler Operator: Brandon Anaya MDEosinophils (Bld) [#/Vol]0.10 10*3/uLNormal 0.00-0.44F[facility] Memorial HospitalComment on above:Performed By: #### CDP, CP, LIP, TROPI, LIPRF, GLYHGB #### [facility] [employer] [address] [place] [address] Mottler Operator: Brandon Anaya MDEosinophils/100 WBC (Bld)1 %Normal1-4[facility] HospitalComment on above:Performed By: #### CDP, CP, LIP, TROPI, LIPRF, GLYHGB #### [facility] [employer] [address] [place] [address] Mottler Operator: Brandon Anaya MDErythrocyte distribution width (RBC) [Ratio]14.6 %High11.8-14.4[facility] HospitalComment on above:Performed By: #### CDP, CP, LIP, TROPI, LIPRF, GLYHGB #### [facility] [employer] [address] [place] [address] Mottler Operator: Brandon Anaya MDHematocrit (Bld) [Volume fraction]40.2 %Normal 36.3-47.1MMercy Medical CenterComment on above:Performed By: #### CDP, CP, LIP, TROPI, LIPRF, GLYHGB #### [facility] [employer] [address] [place] [address] Mottler Operator: Brandon Anaya MDHemoglobin (Bld) [Mass/Vol]12.6 g/dLNormal 11.9-15.1MMercy Medical CenterComment on above:Performed By: #### CDP, CP, LIP, TROPI, LIPRF, GLYHGB #### [facility] [employer] [address] [place] [address] Mottler Operator: Brandon Anaya MDImmature granulocytes (Bld) [#/Vol]1 %Orfo8YcjtqFayette County Memorial HospitalComment on above:Performed By: #### CDP, CP, LIP, TROPI, LIPRF, GLYHGB #### [facility] [employer] [address] [place] [address] Mottler Operator: Kortney Mcmanusmphocytes (Bld) [#/Vol]3.05 10*3/uLNormal 1.10-3.70[facility] Memorial HospitalComment on above:Performed By: #### CDP, CP, LIP, TROPI, LIPRF, GLYHGB #### [facility] [employer] [address] [place] [address] Mottler Operator: Luiza Mcmanushocytes/100 WBC (Bld)32 %Cnisvx16-20HeupaFayette County Memorial HospitalComment on above:Performed By: #### CDP, CP, LIP, TROPI, LIPRF, GLYHGB #### [facility] [employer] [address] [place] [address] Mottler Operator: LIZZY McmanusCH (RBC) [Entitic mass]29.0 jcLgvwmn63.2-33.5 [facility] HospitalComment on above:Performed By: #### CDP, CP, LIP, TROPI, LIPRF, GLYHGB #### [facility] [employer] [address] [place] [address] Mottler Operator: STEFFANIE McmanusC (RBC) [Mass/Vol]31.3 g/pSJciyja01.4-34.8 [facility] HospitalComment on above:Performed By: #### CDP, CP, LIP, TROPI, LIPRF, GLYHGB #### [address] [address] Mottler Operator: LIZZY McmanusCV (RBC) [Entitic vol]92.4 lMKdxacw94.6-102.9 [facility] HospitalComment on above:Performed By: #### CDP, CP, LIP, TROPI, LIPRF, GLYHGB #### [place] [address] Mottler Operator: LIZZY Mcmanusonocytes (Bld) [#/Vol]0.76 10*3/uLNormal 0.10-1.20[facility] HospitalComment on above:Performed By: #### CDP, CP, LIP, TROPI, LIPRF, GLYHGB #### [place] [address] Mottler Operator: LIZZY Mcmanusonocytes/100 WBC (Bld)8 %Normal3-12[facility] HospitalComment on above:Performed By: #### CDP, CP, LIP, TROPI, LIPRF, GLYHGB #### [place] [address] Mottler Operator: Modesta Mcmanusophil (Seg)58 %Qflgaj66-00BrrklFayette County Memorial HospitalComment on above:Performed By: #### CDP, CP, LIP, TROPI, LIPRF, GLYHGB #### [place] [address] Mottler Operator: Brandon Anaya MDNRBC Automated0.0 per 100 WBCNormal0.0[facility] HospitalComment on above:Performed By: #### CDP, CP, LIP, TROPI, LIPRF, GLYHGB #### [facility] [employer] [address] [place] [address] Mottler Operator: BLADIMIR Mcmanuslatelet mean volume (Bld) [Entitic vol]10.6 fL Normal8.1-13.5[facility] HospitalComment on above:Performed By: #### CDP, CP, LIP, TROPI, LIPRF, GLYHGB #### [facility] [employer] [address] [place] [address] Mottler Operator: Geremias Mcmanustelets (Bld) [#/Vol]216 10*3/oPQjdepz532-799 [facility] HospitalComment on above:Performed By: #### CDP, CP, LIP, TROPI, LIPRF, GLYHGB #### [facility] [employer] [address] [place] [address] Mottler Operator: RICHA Mcmanus (Bld) [#/Vol]4.35 10*6/uLNormal3.95-5.11 [facility] HospitalComment on above:Performed By: #### CDP, CP, LIP, TROPI, LIPRF, GLYHGB #### [facility] [address] [place] [address] Mottler Operator: RICHA Mcmanus morphology finding Nom (Bld)ANISOCYTOSIS Salem HospitalComment on above:Performed By: #### CDP, CP, LIP, TROPI, LIPRF, GLYHGB #### [facility] [employer] [address] [place] [address] Mottler Operator: LUCIAN Mcmanus (Bld) [#/Vol]9.6 10*3/uLNormal3.5-11.3MMercy Medical CenterComment on above:Performed By: #### CDP, CP, LIP, TROPI, LIPRF, GLYHGB #### [facility] [employer] [address] [place] [address] Mottler Operator: Gustabo Mcmanus Diff PerformedNOT REPORTEDKindred Hospital DaytonComment on above:Performed By: #### CDP, CP, LIP, TROPI, LIPRF, GLYHGB #### [facility] [address] [place] [address] Mottler Operator: Bon Mcmanus (Adalberto) [#/Vol]NOT REPORTEDKindred Hospital DaytonComment on above:Performed By: #### CDP, CP, LIP, TROPI, LIPRF, GLYHGB #### [facility] [address] [place] [address] Mottler Operator: LUCIAN Mcmanus MorphologyNOT REPORTEDNoTrinity Health System West CampusComment on above:Performed By: #### CDP, CP, LIP, TROPI, LIPRF, GLYHGB #### [facility] [address] [place] [address] Mottler Operator: WENDY Mcmanus LUMBAR SPINE W WO CONTRASTon [id number] LUMBAR SPINE W WO CONTRASTEXAMINATION: MRI OF [...] Signed by: Ryan Lindsay MD 10/15/19 Final resultNormOhioHealth Marion General HospitalPO Glucose Fingerstickon 66-91-2720Tkglbta [Mass/Vol]98 mg/dL65 - 105 mg/dLUniversity Hospitals Ely[facility] Center, KYGlucose [Mass/Vol]107 mg/zQRohr91 - 105 mg/dLUniversity Hospitals Elyria [facility] Center, KYInterpretation and review of laboratory resultsAbnormalUniversity Hospitals Elyria Medical Center, KYGlucose [Mass/Vol]81 mg/dL65 - 105 mg/dLUniversity Hospitals Elyria Medical Center, KYURINALYSIS WITH MICROSCOPICon 10-16-2019 Amorphous, UANOT REPORTEDNoneMeSelect Medical [facility]- [place], KYBacteria, UAMODERATEAbnormal NoneSelect Medical [facility]ty [facility] [place]- [place], KYBilirubin UrineNegativeNEGATIVESelect Medical Specialty Hospital [facility] [place]- [place], KYCasts UA0 TO 2 HYALINE Reference range defined for non-centrifuged specimen.[facility] [place], KYColor, UAYELLOWYELLOWSelect Medical Specialty Hospital [facility] [place]- [place], KYCrystals, UANOT REPORTED None /HPFMerTrios Health- [place], KYEpithelial Cells UA0 TO 2[facility]- [place], [place] Glucose, UrNegativeNEGATIVEMckitrick Hospitalcy Health- [place], KYInterpretation and review of laboratory resultsAbnormalMercy Health- [place], KYKetones Ql (U)SMALLAbnormal NEGATIVEMer Health- [place], KYLeukocyte esterase Test strip Ql (U)NegativeNEGATIVE [facility]- [place], KYMucus, UANOT REPORTEDNoneMey Health- [place], KYNitrite, Urine NegativeNEGATIVECleveland Clinic South [facility]inte [facility] Health- [place], KYOther Observations UANOT REPORTEDNOT REQ. [facility]- [place], KYpH, UA8.0[facility]- [place], KYProtein (U) [Mass/Vol]Negative NEGATIVECleveland Clinic South Pointe Hospital Health- [place], KYRBC (U) [#/Vol]2 TO 5[facility]- [place], KYComment on above:Reference range defined for non-centrifuged specimen.Renal Epithelial, UA NOT REPORTED0 /HPFCleveland Clinic South Pointe Hospital Health- [place], KYSpecific [place], UA1.006[facility]- [place], KYTrichomonas, UANOT REPORTEDNoneMey Health- [place], KYTurbidity UACLOUDYAbnormal CLEARCleveland Clinic South Pointe Hospital Health- [place], KYUrine HgbNegativeNEGATIVECleveland Clinic [facility] Health- [place], [place] Urobilinogen, UrineNormalNormalC[facility]- [place], KYWBC, UA0 TO 2Mcleveland clinic hillcrest hospitaly Health- [place], KYYeast, UANOT REPORTEDNoneMey Health- [place], [place]-[facility] [place]- [place], [place] Urinalysis w/ Microon 10-16-2019-----NormalFayette County Memorial Hospital Comment on above:Performed By: #### CDP, CP, LIP, TROPI, LIPRF, GLYHGB #### [facility] [place] [address] Mottler Operator: Rafi Mcmanustoacetic Acid,UrSMALLAbnormalNEGFayette County Memorial HospitalComment on above:Performed By: #### CDP, CP, LIP, TROPI, LIPRF, GLYHGB #### [facility] [place], [place] [id number] Mottler Operator: Brandon Madoff, MDBacteria LM.HPF (Urine sed) [#/Area]MODERATE AbnormalNONEMercy Doctor'S Hospital Montclair Medical CenterComment on above:Performed By: #### CDP, CP, LIP, TROPI, LIPRF, GLYHGB #### [facility] [employer] [address] [place] [address] Mottler Operator: Brandon Anaya MDBilirubin, SemiQt,UrNegativeNormalNEGFayette County Memorial HospitalComment on above:Performed By: #### CDP, CP, LIP, TROPI, LIPRF, GLYHGB #### [facility] [employer] [address] [place] [address] Mottler Operator: NEHAL Mcmanusasts LM.LPF (Urine sed) [#/Area]0 TO 2 HYALINE Normal0-8F[facility] Memorial HospitalComment on above:Result Comment: Reference range defined for non-centrifuged specimen.Performed By: #### CDP, CP, LIP, TROPI, LIPRF, GLYHGB #### [facility] [employer] [address] [place] [address] Mottler Operator: NEHAL Mcmanusolor (U)YELLOWNormalYELMerWhittier Hospital Medical CenterComment on above:Performed By: #### CDP, CP, LIP, TROPI, LIPRF, GLYHGB #### [facility] [employer] [address] [place] [address] Mottler Operator: Brandon Anaya MDEpithelial cells LM.HPF (Urine sed) [#/Area]0 TO 8Ujxpxl1-6FgvfjFayette County Memorial HospitalComment on above:Performed By: #### CDP, CP, LIP, TROPI, LIPRF, GLYHGB #### [facility] [employer] [address] [place] [address] Mottler Operator: Brandon Anaya MDGlucose Ql (U)NegativeNormalNEGFayette County Memorial HospitalComment on above:Performed By: #### CDP, CP, LIP, TROPI, LIPRF, GLYHGB #### [facility] [address] [place] [address] Mottler Operator: Brandon Aanya MDHemoglobin, UrNegativeNormalNEGFayette County Memorial HospitalComment on above:Performed By: #### CDP, CP, LIP, TROPI, LIPRF, GLYHGB #### [facility] [address] [place] [address] Mottler Operator: Brandon Anaya MDLeukocyte esterase Test strip Ql (U)Negative NormalNEGFayette County Memorial HospitalComment on above:Performed By: #### CDP, CP, LIP, TROPI, LIPRF, GLYHGB #### [facility] [address] [place] [address] Mottler Operator: Brandon Anaya MDNitrite,UrNegativeNevada Regional Medical CenteralCity HospitalComment on above:Performed By: #### CDP, CP, LIP, TROPI, LIPRF, GLYHGB #### [address] [address] Mottler Operator: Brandon Anaya [facility] (U)8.0 [pH]Normal5.0-8.0F[facility] Memorial HospitalComment on above:Performed By: #### CDP, CP, LIP, TROPI, LIPRF, GLYHGB #### [address] [address] Mottler Operator: BLADIMIR Mcmanusrotein Ql (U)NegativeNormalNEGFayette County Memorial HospitalComment on above:Performed By: #### CDP, CP, LIP, TROPI, LIPRF, GLYHGB #### [facility] [address] [place] [address] 064[address] Mottler Operator: Brandon Anaya MDRBC (U) [#/Vol]2 TO 3Vdjgio9-6BptucFayette County Memorial HospitalComment on above:Result Comment: Reference range defined for non- centrifuged specimen.Performed By: #### CDP, CP, LIP, TROPI, LIPRF, GLYHGB #### [facility] [address] [place] [address] 39992 Mottler Operator: FABIANA Mcmanuspecific gravity (U) [Rel density]1.006Normal 1.005-1.030Fayette County Memorial HospitalComment on above:Performed By: #### CDP, CP, LIP, TROPI, LIPRF, GLYHGB #### [facility] [address] [place] [address] 24195 Mottler Operator: GODWIN McmanusurbidityCLOUDYAbnormalCLEARFayette County Memorial HospitalComment on above:Performed By: #### CDP, CP, LIP, TROPI, LIPRF, GLYHGB #### [facility] [address] [place] [address] 14897 Mottler Operator: Carrie Mcmanusbilino,UrNormalNormalNOFlower HospitalComment on above:Performed By: #### CDP, CP, LIP, TROPI, LIPRF, GLYHGB #### [facility] [address] [place] [address] 32850 Mottler Operator: Brandon Anaya MDWBC (U) [#/Vol]0 TO 5Owrnfy8-5CemaxFayette County Memorial HospitalComment on above:Performed By: #### CDP, CP, LIP, TROPI, LIPRF, GLYHGB #### [facility] [address] [place] [address] 37999 Mottler Operator: Brandon Anaya MDAmorphous sediment LM Ql (Urine sed)NOT REPORTED NormalNONEMercDesert Valley HospitalComment on above:Performed By: #### CDP, CP, LIP, TROPI, LIPRF, GLYHGB #### [facility] [address] [place] [address] 27287 Mottler Operator: Manjula Mcmanusstdamien LM Nom (Urine sed)NOT REPORTEDNormal NONEFayette County Memorial HospitalComment on above:Performed By: #### CDP, CP, LIP, TROPI, LIPRF, GLYHGB #### [facility] [address] [place] [address] 17972 Mottler Operator: Brandon Anaya MDEpithelial, RenalNOT GDSBSOAHAtuwkf6GfamnFayette County Memorial HospitalComment on above:Performed By: #### CDP, CP, LIP, TROPI, LIPRF, GLYHGB #### [facility] [address] [place] [address] 04888 Mottler Operator: Raquel Mcmanusus StrandsNOT REPORTEDNormalNONEMeCommunity Hospital of San BernardinoComment on above:Performed By: #### CDP, CP, LIP, TROPI, LIPRF, GLYHGB #### [facility] [address] [place] [address] 14054 Mottler Operator: Brandon Anaya MDOther ObservationsNOT REPORTEDNormalNREQFayette County Memorial HospitalComment on above:Performed By: #### CDP, CP, LIP, TROPI, LIPRF, GLYHGB #### [facility] [address] [place] [address] 62714 Mottler Operator: Grant McmanushomonasNOT REPORTEDNormalNONGeorgetown Behavioral HospitalComment on above:Performed By: #### CDP, CP, LIP, TROPI, LIPRF, GLYHGB #### [facility] [address] [place] [address] 92551 Mottler Operator: Brandon Anaya MDYeast LM Ql (Urine sed)NOT REPORTEDNormalNONE F[facility] HospitalComment on above:Performed By: #### CDP, CP, LIP, TROPI, LIPRF, GLYHGB #### [facility] [address] [place] [address] 84909 Mottler Operator: Josh Mcmanus Metab w/rfx MGon 10-15-2019(cont.)Normal F[facility] County Memorial HospitalComment on above:Result Comment: Average GFR for 70 or more years old: 75 mL/min/1.73sq m Chronic Kidney Disease: <60 mL/min/1.73sq m Kidney failure: <15 mL/min/1.73sq m eGFR calculated using average adult body mass. Additional eGFR calculator available at: http://www.Kazeon.Mobile Event Guide/multiple_crcl_2012.htmPerformed By: #### CDP, CP, LIP, TROPI, LIPRF, GLYHGB #### [facility] [address] [place] [address] 59939 Mottler Operator: Brandon Anaya MDAnion gap [Moles/Vol]14 mmol/LNormal9-17F[facility] County Memorial HospitalComment on above:Performed By: #### CDP, CP, LIP, TROPI, LIPRF, GLYHGB #### [facility] [address] [place] [address] 94036 Mottler Operator: Brandon Anaya MDCalcium [Mass/Vol]8.8 mg/dLNormal8.6-10.4F[facility] County Memorial HospitalComment on above:Performed By: #### CDP, CP, LIP, TROPI, LIPRF, GLYHGB #### [employer] [facility] [employer] [address] [place] [address] 67429 Mottler Operator: Brandon Anaya MDChloride [Moles/Vol]94 mmol/FSwd68-138VqwmqFayette County Memorial HospitalComment on above:Performed By: #### CDP, CP, LIP, TROPI, LIPRF, GLYHGB #### [facility] [address] [place] [address] 81676 Mottler Operator: Brandon Anaya MDCO2 [Moles/Vol]23 mmol/OKimyme84-30IgxytFayette County Memorial HospitalComment on above:Performed By: #### CDP, CP, LIP, TROPI, LIPRF, GLYHGB #### [employer] [employer] [address] [place] [address] 01970 Mottler Operator: NEHAL Mcmanusreatinine [Mass/Vol]0.36 mg/dLLow0.50-0.90F[facility] County Memorial HospitalComment on above:Performed By: #### CDP, CP, LIP, TROPI, LIPRF, GLYHGB #### [place] [address] Mottler Operator: Brandon Anaya MDGFR, Amer>60Normal>60F[facility] County Memorial HospitalComment on above:Performed By: #### CDP, CP, LIP, TROPI, LIPRF, GLYHGB #### [place] [address] Mottler Operator: CAROLYN Mcmanus,non Amer>60Normal>60F[facility] County Memorial HospitalComment on above:Performed By: #### CDP, CP, LIP, TROPI, LIPRF, GLYHGB #### [place] [address] Mottler Operator: Brandon Anaya MDGlucose [Mass/Vol]89 mg/sBBnezmu54-89FgrxbMercy Medical CenterComment on above:Performed By: #### CDP, CP, LIP, TROPI, LIPRF, GLYHGB #### [place] [address] Mottler Operator: BLADIMIR Mcmanusotassium [Moles/Vol]3.7 mmol/LNormal3.7-5.3 F[facility] Memorial HospitalComment on above:Performed By: #### CDP, CP, LIP, TROPI, LIPRF, GLYHGB #### [place] [address] Mottler Operator: FABIANA Mcmanusodium [Moles/Vol]131 mmol/RSwr916-609WujpkFayette County Memorial HospitalComment on above:Performed By: #### CDP, CP, LIP, TROPI, LIPRF, GLYHGB #### [facility] [address] [place] [address] Mottler Operator: Brandon Anaya MDUrea nitrogen [Mass/Vol]16 mg/dLNormal8-23Fayette County Memorial HospitalComment on above:Performed By: #### CDP, CP, LIP, TROPI, LIPRF, GLYHGB #### [facility] [address] [place] [address] Mottler Operator: Brandon Anaya MDBUN/CRE RatioNOT REPORTEDNormal9-20F[facility] County Memorial HospitalComment on above:Performed By: #### CDP, CP, LIP, TROPI, LIPRF, GLYHGB #### [facility] [address] [place] [address] Mottler Operator: FABIANA Mcmanustaging:NOT REPORTEDNormalFayette County Memorial HospitalComment on above:Performed By: #### CDP, CP, LIP, TROPI, LIPRF, GLYHGB #### [facility] [address] [place] [address] Mottler Operator: Josh Mcmanus Metabolic Panel w/ Reflex to MGon [id number] gap [Moles/Vol]14 mmol/L9 - 17 mmol/LMercy Health- [place], KYBun/Cre RatioNOT REPORTEDMer Health- [place], KYCalcium [Mass/Vol]8.8 mg/dL8.6 - 10.4 mg/dLMercy Health- [place], KYChloride [Moles/Vol]94 mmol/LLow98 - 107 mmol/LMercy Health- [place], KYCO2 [Moles/Vol]23 mmol/L20 - 31 mmol/LMercy Health- [place], [place] Creatinine [Mass/Vol]0.36 mg/dLLow0.5 - 0.9 mg/dLMercy Health- [place], KYGFR >60>60 mL/minMercy Health- [place], KYGFR Non->60>60 mL/min [facility]- [place], KYGFR/1.73 sq M predicted among non-blacks MDRD (S/P/Bld) [Vol rate/Area][facility], KYComment on above:Average GFR for 70 or more years old: 75 mL/min/1.73sq m Chronic Kidney Disease: <60 mL/min/1.73sq m Kidney failure: <15 mL/min/1.73sq m eGFR calculated using average adult body mass. Additional eGFR calculator available at: http://www.Best Before Media/multiple_crcl_2012.htm GFR/1.73 sq M predicted among non-blacks MDRD (S/P/Bld) [Vol rate/Area]NOT REPORTEDUniversity [facility]als [facility], KYGlucose [Mass/Vol]89 mg/dL70 - 99 mg/dLUniversity Hospitals [facility]ly[facility], KYInterpretation and review of laboratory resultsAbnormalUniversity Hospitals [facility], KYPotassium [Moles/Vol]3.7 mmol/L3.7 - 5.3 mmol/LMBrown Memorial Hospital, KYSodium [Moles/Vol]131 mmol/YVau561 - 144 mmol/LMBrown Memorial Hospital, KYUrea nitrogen [Mass/Vol]16 mg/dL8 - 23 mg/dLUniversity Hospitals Ely[facility], KYCBC auto differentialon [id number] (Bld) [#/Vol]0.06 10*3/uLUniversity Hospitals Elyria Medical Center, KYBasophils/100 WBC (Bld)1 %0 - 2 %[facility], KYDifferential TypeNOT REPORTEDUniversity [facility]als [facility], KYEosinophils (Bld) [#/Vol]0.13 10*3/uLUniversity Hospitals Ely[facility], [place] Eosinophils/100 WBC (Bld)1 %1 - 4 %[facility], KYErythrocyte distribution width (RBC) [Ratio]14.6 %High11.8 - 14.4 %[facility], KYHematocrit (Bld) [Volume fraction]41.6 %36.3 - 47.1 %[facility], KYHemoglobin (Bld) [Mass/Vol]13.4 g/dL11.9 - 15.1 g/dLUniversity Hospitals Ely[facility], KYImmature granulocytes (Bld) [#/Vol]1 %Beai5LntzwUniversity Hospitals Elyria Medical Center, CLARAImmature granulocytes (Bld) [#/Vol]0.11 10*3/[facility] OHInterpretation and review of laboratory results AbnormalUniversity Hospitals Elyria Medical CenterCLARALymphocytes (Bld) [#/Vol]2.56 10*3/[facility], CLARALymphocytes/100 WBC (Bld)24 %24 - 43 %[facility], [facility]H (RBC) [Entitic mass]29.3 pg25.2 - 33.5 pgUniversity Hospitals E[facility] Center, OHMCHC (RBC) [Mass/Vol]32.2 g/dL28.4 - 34.8 g/dLBrown Memorial HospitalV (RBC) [Entitic vol]90.8 fL82.6 - 102.9 fLUniversity Hospitals Elyria Medical CenterCLARAMonocytes (Bld) [#/Vol]0.78 10*3/[facility], CLARAMonocytes/100 WBC (Bld)7 %3 - 12 %[facility] Medical CenterCLARAPlatelet mean volume (Bld) [Entitic vol]10.6 fL8.1 - 13.5 fLUniversity Hospitals Elyria Medical CenterCALRAPlatelets (Bld) [#/Vol]NOT REPORTEDUniversity [facility]als [facility], OHPlatelets (Bld) [#/Vol]241 10*3/[facility], CLARARBC (Bld) [#/Vol]4.58 10*6/uL3.95 - 5.11 m/[facility], [place] RBC morphology finding Nom (Bld)ANISOCYTOSIS PRESENTHudson, [place] Segmented neutrophils/100 WBC (Bld)66 %High36 - 65 %[facility], CLARASegs Absolute7.00[facility], CLARAWBC (Bld) [#/Vol]10.6 10*3/[facility], OHWBC (Bld) [#/Vol]0.0 10*3/uL0.0 per 100 WBCUniversity Hospitals Elyria Medical Center, OHWBC Morphology NOT REPORTEDUniversity Hospitals E[facility], OHCBC with Diffon [id number]. Basophil0.06 k/uL Normal0.00-0.20F[facility] County Memorial HospitalComment on above:Performed By: #### CDP, CP, LIP, TROPI, LIPRF, GLYHGB #### [facility] [employer] [address] [place] [address] 95879 Mottler Operator: MDAbs. MariettaImm.Granulocyte0.11 k/uLNormal0.00-0.30F[facility] County Memorial HospitalComment on above:Performed By: #### CDP, CP, LIP, TROPI, LIPRF, GLYHGB #### [place] [address] Mottler Operator: Marie Mcmanus.Neutrophil (Seg)7.00 k/uLNormal1.50-8.10 F[facility] Memorial HospitalComment on above:Performed By: #### CDP, CP, LIP, TROPI, LIPRF, GLYHGB #### [facility] [employer] [address] [place] [address] Mottler Operator: Brandon Anaya MDBasophils/100 WBC (Bld)1 %Normal0-2MMercy Medical CenterComment on above:Performed By: #### CDP, CP, LIP, TROPI, LIPRF, GLYHGB #### [facility] [employer] [address] [place] [address] Mottler Operator: Brandon Anaya MDEosinophils (Bld) [#/Vol]0.13 10*3/uLNormal 0.00-0.44F[facility] County Memorial HospitalComment on above:Performed By: #### CDP, CP, LIP, TROPI, LIPRF, GLYHGB #### [facility] [employer] [address] [place] [address] 83131 Mottler Operator: MAU Mcmanusosinophils/100 WBC (Bld)1 %Normal1-4F[facility] Memorial HospitalComment on above:Performed By: #### CDP, CP, LIP, TROPI, LIPRF, GLYHGB #### [facility] [employer] [address] [place] [address] 15332 Mottler Operator: Brandon Anaya MDErythrocyte distribution width (RBC) [Ratio]14.6 %High11.8-14.4F[facility] County Memorial HospitalComment on above:Performed By: #### CDP, CP, LIP, TROPI, LIPRF, GLYHGB #### [address] [address] Mottler Operator: Brandon Anaya MDHematocrit (Bld) [Volume fraction]41.6 %Normal 36.3-47.1MMercy Medical CenterComment on above:Performed By: #### CDP, CP, LIP, TROPI, LIPRF, GLYHGB #### [place] [address] Mottler Operator: Brandon Anaya MDHemoglobin (Bld) [Mass/Vol]13.4 g/dLNormal 11.9-15.1MMercy Medical CenterComment on above:Performed By: #### CDP, CP, LIP, TROPI, LIPRF, GLYHGB #### [facility] [employer] [address] [place] [address] 57095 Mottler Operator: Brandon Anaya MDImmature granulocytes (Bld) [#/Vol]1 %Qspw6QoeriFayette County Memorial HospitalComment on above:Performed By: #### CDP, CP, LIP, TROPI, LIPRF, GLYHGB #### [facility] [employer] [address] [place] [address] 67040 Mottler Operator: Brandon Anaya MDLymphocytes (Bld) [#/Vol]2.56 10*3/uLNormal 1.10-3.70F[facility] Memorial HospitalComment on above:Performed By: #### CDP, CP, LIP, TROPI, LIPRF, GLYHGB #### [facility] [address] [place] [address] 69698 Mottler Operator: Brandon Anaya MDLymphocytes/100 WBC (Bld)24 %Vejojb36-79JqgsaFayette County Memorial HospitalComment on above:Performed By: #### CDP, CP, LIP, TROPI, LIPRF, GLYHGB #### [address] [address] Mottler Operator: LIZZY McmanusCH (RBC) [Entitic mass]29.3 rkLaewig45.2-33.5 [facility] HospitalComment on above:Performed By: #### CDP, CP, LIP, TROPI, LIPRF, GLYHGB #### [place] [address] Mottler Operator: LIZZY McmanusCHC (RBC) [Mass/Vol]32.2 g/uIZhlskx87.4-34.8 [facility] HospitalComment on above:Performed By: #### CDP, CP, LIP, TROPI, LIPRF, GLYHGB #### [place] [address] Mottler Operator: LIZZY McmanusCV (RBC) [Entitic vol]90.8 aTVwyzjm23.6-102.9 [facility] HospitalComment on above:Performed By: #### CDP, CP, LIP, TROPI, LIPRF, GLYHGB #### [place] [address] Mottler Operator: LIZZY Mcmanusonocytes (Bld) [#/Vol]0.78 10*3/uLNormal 0.10-1.20F[facility] HospitalComment on above:Performed By: #### CDP, CP, LIP, TROPI, LIPRF, GLYHGB #### [address] [address] Mottler Operator: Brandon Madoff, MDMonocytes/100 WBC (Bld)7 %Normal3-12F[facility] Memorial HospitalComment on above:Performed By: #### CDP, CP, LIP, TROPI, LIPRF, GLYHGB #### [facility] [employer] [address] [place] [address] 01903 Mottler Operator: Davidson Mcmanusutrophil (Seg)66 %Nlrm76-53ImeiiFayette County Memorial HospitalComment on above:Performed By: #### CDP, CP, LIP, TROPI, LIPRF, GLYHGB #### [facility] [employer] [address] [place] [address] 44243 Mottler Operator: JOSIE Mcmanus Automated0.0 per 100 WBCNormal0.0F[facility] County Memorial HospitalComment on above:Performed By: #### CDP, CP, LIP, TROPI, LIPRF, GLYHGB #### [facility] [employer] [address] [place] [address] 47637 Mottler Operator: Nadeem Mcmanus mean volume (Bld) [Entitic vol]10.6 fL Normal8.1-13.5F[facility] County Memorial HospitalComment on above:Performed By: #### CDP, CP, LIP, TROPI, LIPRF, GLYHGB #### [facility] [employer] [address] [place] [address] 86942 Mottler Operator: Bon Mcmanus (Bld) [#/Vol]241 10*3/kFSzdwrq130-938 [facility] HospitalComment on above:Performed By: #### CDP, CP, LIP, TROPI, LIPRF, GLYHGB #### [facility] [employer] [address] [place] [address] 43009 Mottler Operator: DREW McmanusBC (Bld) [#/Vol]4.58 10*6/uLNormal3.95-5.11 [facility] HospitalComment on above:Performed By: #### CDP, CP, LIP, TROPI, LIPRF, GLYHGB #### [facility] [place] [address] Mottler Operator: RICHA Mcmanus morphology finding Nom (Bld)ANISOCYTOSIS PRESENTKindred Hospital DaytonComment on above:Performed By: #### CDP, CP, LIP, TROPI, LIPRF, GLYHGB #### [facility] [address] [place] [address] 07973 Mottler Operator: LUCIAN Mcmanus (Bld) [#/Vol]10.6 10*3/uLNormal3.5-11.3[facility] Medical CenterComment on above:Performed By: #### CDP, CP, LIP, TROPI, LIPRF, GLYHGB #### [facility] [address] [place] [address] 18517 Mottler Operator: Gustabo Mcmanus Diff PerformedNOT [facility] for the InsaneComment on above:Performed By: #### CDP, CP, LIP, TROPI, LIPRF, GLYHGB #### [facility] [address] [place] [address] 47[address] Mottler Operator: Bon Mcmanus (Bld) [#/Vol]NOT REPORTEDKindred Hospital DaytonComment on above:Performed By: #### CDP, CP, LIP, TROPI, LIPRF, GLYHGB #### [facility] [address] [place] [address] 23[address] Mottler Operator: LUCIAN Mcmanus MorphologyNOT REPORTEDKindred Hospital DaytonComment on above:Performed By: #### CDP, CP, LIP, TROPI, LIPRF, GLYHGB #### [facility] [address] [place] [address] Mottler Operator: WENDY Mcmanus LUMBAR SPINE W WO CONTRASTon [id number] compression fracture of the lumbar spine is [...] Radiol 2013; 10(10):789-794; J Vasc Surg. 2018; 67:2-77[place], KYEXAMINATION: MRI OF THE LUMBAR SPINE WITHOUT AND [...] roots are intact. The neural foramina are intact.[facility]- [place], [place], [place] Incoming Radiant Results From [employer] - 10/15/2019 11:11 PM EDT EXAMINATION: MRI [...] 2013; 10(10):789-794; J Vasc Surg. 2018; 67:2-77 [facility], OHMYCOPLASMA PNEUMONIAE ANTIBODY, IGMon 10-23-7931Pvosjbnamm pneumo IgM0.12<0.91[place], KYComment on above: Reference Range: <=0.90 Negative 0.91-1.09 Equivocal >=1.10 Positive Mycoplasma Ab, IgMon 98-48-8973Lpwyxcxxft Ab, IgM0.12Normal<0.91F[facility] Memorial HospitalComment on above:Result Comment: Reference Range: <=0.90 Negative 0.91-1.09 Equivocal >=1.10 PositivePerformed By: #### CDP, CP, LIP, TROPI, LIPRF, GLYHGB #### [facility] [employer] [address] [place], [place] [id number] Mottler Operator: LENORE Mcmanus Glucose Fingerstickon 43-23-7334Tbxswud [Mass/Vol]100 mg/dL65 - 105 mg/dLUniversity [facility]als [facility], KYGlucose [Mass/Vol]99 mg/dL 65 - 105 mg/dLUniversity Hospitals [facility], KYGlucose [Mass/Vol]91 mg/dL65 - 105 mg/dLUniversity [facility]als [facility], KYGlucose [Mass/Vol]95 mg/dL65 - 105 mg/dLUniversity Hospitals [facility], KYRENIN on 87-97-9040Znbai Activity0.1ng/mL/hrHudson, KYComment on above: (NOTE) INTERPRETIVE INFORMATION: Renin Activity Adult, Normal sodium diet: Supine ................. 0.2-1.6 ng/mL/hr Upright ................ 0.5-4.0 ng/mL/hr Children, Normal sodium diet, Supine: Perkins (1-7 days) ..... 2.0-35.0 ng/mL/hr Cord blood [...] angiotensinogen is decreased. See Compliance Statement D: www.[employer].com/CS Performed By: [facility] [address] [place] [id number] Tech Intern: Nik Rosas MD, MS Renin CommentNOT [facility], KYRenin Activityon 35-48-6328Lacsj Activity0.1 ng/mL/hrNormOhioHealth Marion General HospitalComment on above: Result Comment: (NOTE) INTERPRETIVE [...] angiotensinogen is decreased. See Compliance Statement D: www.[employer].com/CS Performed By: [facility] [address] [place] [address] Tech Intern: Nik Rosas MD, MSPerformed By: #### CDP, CP, LIP, TROPI, LIPRF, GLYHGB #### [facility] [address] [place] [address] Mottler Operator: Xochilt Mcmanus 67-56-5459Znmmiohjiig8 ng/dLHudson, KYComment on above:(NOTE) INTERPRETIVE INFORMATION: Aldosterone, Serum Reference [...] reference intervals for this test in the [facility] ([employer]). Performed By: [facility] [address] [place], [place] [id number] Tech Intern: Nik Rosas MD, MS Aldosterone CommentNOT REPORTEDMemorial Hospital Ira 10-14-2019 Aldosterone5.0 ng/dLNoTrinity Health System West CampusComment on above: Result Comment: (NOTE) INTERPRETIVE INFORMATION: [...] reference intervals for this test in the [facility] ([employer]). Performed By: [employer] [place] [id number] Tech Intern: Nik Rosas MD, MSPerformed By: #### CDP, CP, LIP, TROPI, LIPRF, GLYHGB #### [address] [address] Mottler Operator: Josh Mcmanus Metab w/rfx MGon 10-14-2019(cont.)Normal [facility] HospitalComment on above:Result Comment: Average GFR for 70 or more years old: 75 mL/min/1.73sq m Chronic Kidney Disease: <60 mL/min/1.73sq m Kidney failure: <15 mL/min/1.73sq m eGFR calculated using average adult body mass. Additional eGFR calculator available at: http://www.Best Before [employer]/multiple_crcl_2012.htmPerformed By: #### CDP, CP, LIP, TROPI, LIPRF, GLYHGB #### [place] [address] Mottler Operator: Brandon Anaya MDAnion gap [Moles/Vol]13 mmol/LNormal9-17[facility] HospitalComment on above:Performed By: #### CDP, CP, LIP, TROPI, LIPRF, GLYHGB #### [facility] [employer] [address] [place] [address] Mottler Operator: NEHAL Mcmanusalcium [Mass/Vol]8.5 mg/dLLow8.6-10.4[facility] HospitalComment on above:Performed By: #### CDP, CP, LIP, TROPI, LIPRF, GLYHGB #### [place] [address] Mottler Operator: Brandon Anaya MDChloride [Moles/Vol]91 mmol/YUcz26-135PnvjiFayette County Memorial HospitalComment on above:Performed By: #### CDP, CP, LIP, TROPI, LIPRF, GLYHGB #### [facility] [employer] [address] [place] [address] Mottler Operator: Brandon Anaya MDCO2 [Moles/Vol]26 mmol/EPswehh04-00KdrjkFayette County Memorial HospitalComment on above:Performed By: #### CDP, CP, LIP, TROPI, LIPRF, GLYHGB #### [address] [address] Mottler Operator: NEHAL Mcmanusreatinine [Mass/Vol]0.48 mg/dLLow0.50-0.90[facility] HospitalComment on above:Performed By: #### CDP, CP, LIP, TROPI, LIPRF, GLYHGB #### [place] [address] Mottler Operator: Brandon Anaya MDGFR, Amer>60Normal>60[facility] HospitalComment on above:Performed By: #### CDP, CP, LIP, TROPI, LIPRF, GLYHGB #### [place] [address] Mottler Operator: CAROLYN Mcmanus,non Amer>60Normal>60[facility] HospitalComment on above:Performed By: #### CDP, CP, LIP, TROPI, LIPRF, GLYHGB #### [place] [address] Mottler Operator: Brandon Anaya MDGlucose [Mass/Vol]104 mg/jFBluk93-28AlyqrMercy Medical CenterComment on above:Performed By: #### CDP, CP, LIP, TROPI, LIPRF, GLYHGB #### [place] [address] Mottler Operator: BLADIMIR Mcmanusotassium [Moles/Vol]3.7 mmol/LNormal3.7-5.3 [facility] HospitalComment on above:Performed By: #### CDP, CP, LIP, TROPI, LIPRF, GLYHGB #### [address] [address] Mottler Operator: FABIANA Mcmanusodium [Moles/Vol]130 mmol/LHbk300-009HatfcFayette County Memorial HospitalComment on above:Performed By: #### CDP, CP, LIP, TROPI, LIPRF, GLYHGB #### [facility] [address] [place] [address] Mottler Operator: Brandon Anaya MDUrea nitrogen [Mass/Vol]19 mg/dLNormal8-23[facility] HospitalComment on above:Performed By: #### CDP, CP, LIP, TROPI, LIPRF, GLYHGB #### [facility] [address] [place] [address] Mottler Operator: BAUDILIO McmanusN/CRE RatioNOT REPORTEDNormal9-20[facility] HospitalComment on above:Performed By: #### CDP, CP, LIP, TROPI, LIPRF, GLYHGB #### [facility] [address] [place] [id number] Mottler Operator: FABIANA Mcmanustaging:NOT REPORTEDNormalFayette County Memorial HospitalComment on above:Performed By: #### CDP, CP, LIP, TROPI, LIPRF, GLYHGB #### [facility] [place] [address] Mottler Operator: Josh Mcmanus Metabolic Panel w/ Reflex to MGon [id number] gap [Moles/Vol]13 mmol/L9 - 17 mmol/LMercy Health- [place], KYBun/Cre RatioNOT REPORTEDMer Health- [place], KYCalcium [Mass/Vol]8.5 mg/dLLow8.6 - 10.4 mg/dLMercy Health- [place], KYChloride [Moles/Vol]91 mmol/LLow98 - 107 mmol/LMercy Health- [place], KYCO2 [Moles/Vol]26 mmol/L20 - 31 mmol/LMercy Health- [place], [place] Creatinine [Mass/Vol]0.48 mg/dLLow0.5 - 0.9 mg/dLMercy Health- [place], KYGFR >60>60 mL/minMercy Health- [place], KYGFR Non->60>60 mL/min [facility], KYGFR/1.73 sq M predicted among non-blacks MDRD (S/P/Bld) [Vol rate/Area][facility], CLARAComment on above:Average GFR for 70 or more years old: 75 mL/min/1.73sq m Chronic Kidney Disease: <60 mL/min/1.73sq m Kidney failure: <15 mL/min/1.73sq m eGFR calculated using average adult body mass. Additional eGFR calculator available at: http://www.Best Before Media/multiple_crcl_2012.htm GFR/1.73 sq M predicted among non-blacks MDRD (S/P/Bld) [Vol rate/Area]NOT REPORTEDUniversity [facility], CLARAGlucose [Mass/Vol]104 mg/lKZsps04 - 99 mg/dLUniversity Hospitals [facility], OHInterpretation and review of laboratory resultsAbnormalUniversity Hospitals [facility], KYPotassium [Moles/Vol]3.7 mmol/L3.7 - 5.3 mmol/LMBrown Memorial Hospital, KYSodium [Moles/Vol]130 mmol/STzu553 - 144 mmol/LMBrown Memorial Hospital, KYUrea nitrogen [Mass/Vol]19 mg/dL8 - 23 mg/dLUniversity [facility]als [facility], CLARACBC auto differential on 23-12-9101Mvahowis Lymphocytes3 %[facility], OHAtypical Lymphocytes Absolute0.30k/[facility], CLARABasophils (Bld) [#/Vol]0.00 10*3/[facility], KYBasophils/100 WBC (Bld)0 %0 - 2 %[facility], CLARADifferential TypeNOT REPORTEDUniversity [facility], KYEosinophils (Bld) [#/Vol]0.10 10*3/[facility], KYEosinophils/100 WBC (Bld)1 %1 - 4 %[facility], OHErythrocyte distribution width (RBC) [Ratio]14.7 %High11.8 - 14.4 %[facility], [place] Hematocrit (Bld) [Volume fraction]39.5 %36.3 - 47.1 %[facility], CLARA Hemoglobin (Bld) [Mass/Vol]12.9 g/dL11.9 - 15.1 g/dLMercy Health [facility]field [facility] [place], CLARAImmature granulocytes (Bld) [#/Vol]0.10 10*3/[facility]- [place], KYImmature granulocytes (Bld) [#/Vol]1 %Lfda1OlfbiUniversity Hospitals [facility], OHInterpretation and review of laboratory resultsAbnormalUniversity Hospitals [facility], KYLymphocytes (Bld) [#/Vol]2.80 10*3/[facility]- [place], CLARALymphocytes/100 WBC (Bld)28 %24 - 44 %[facility], OHMCH (RBC) [Entitic mass]29.5 pg25.2 - 33.5 pgUniversity Hospitals [facility], OHMCHC (RBC) [Mass/Vol]32.7 g/dL28.4 - 34.8 g/dLUniversity Hospitals [facility], OHMCV (RBC) [Entitic vol]90.2 fL82.6 - 102.9 fLUniversity Hospitals Elyria Medical Center, CLARAMonocytes (Bld) [#/Vol]0.50 10*3/[facility]- [place], CLARAMonocytes/100 WBC (Bld)5 %1 - 7 %[facility], CLARA Morphology Alfredo (Bld) [Interp]ANISOCYTOSIS PRESENTUniversity Hospitals Elyria Medical Center, CLARAPlatelet mean volume (Bld) [Entitic vol]10.1 fL8.1 - 13.5 fLMercy Health Fairfield Hospital [place], KYPlatelets (Bld) [#/Vol]190 10*3/[facility]- [place], KYPlatelets (Bld) [#/Vol]NOT REPORTED [facility], OHRBC (Bld) [#/Vol]4.38 10*6/uL3.95 - 5.11 m/[facility]- [place], OHRBC morphology finding Nom (Bld)NOT REPORTEDUniversity [facility], OHSegmented neutrophils/100 WBC (Bld)62 %36 - 66 %[facility], CLARASegs Absolute6.20[facility] (Bld) [#/Vol]10.0 10*3/uLAvita Health System [facility] (Bld) [#/Vol]0.0 10*3/uL0.0 per 100 WBCAvita Health System Bu[facility] MorphologyNOT REPORTED [facility] with Diffon [id number]. Atypical Lymphs0.30 k/uL [facility]red Hospital DaytonComment on above:Performed By: #### CDP, CP, LIP, TROPI, LIPRF, GLYHGB #### [facility] [employer] [address] [place] [address] Mottler Operator: Marie Mcmanus. Basophil0.00 k/uLNormal0.0-0.2MMercy Medical CenterComment on above:Performed By: #### CDP, CP, LIP, TROPI, LIPRF, GLYHGB #### [facility] [employer] [address] [place] [address] Mottler Operator: MDAbs. MariettaImm.Granulocyte0.10 k/uLNormal0.00-0.30F[facility] Memorial HospitalComment on above:Performed By: #### CDP, CP, LIP, TROPI, LIPRF, GLYHGB #### [facility] [employer] [address] [place] [address] Mottler Operator: Marie Mcmanus.Neutrophil (Seg)6.20 k/uLNormal1.8-7.7F[facility] Memorial HospitalComment on above:Performed By: #### CDP, CP, LIP, TROPI, LIPRF, GLYHGB #### [facility] [employer] [address] [place] [address] Mottler Operator: Barbara Mcmanusical Lymphs3 %NormalFayette County Memorial HospitalComment on above:Performed By: #### CDP, CP, LIP, TROPI, LIPRF, GLYHGB #### [facility] [employer] [address] [place] [address] Mottler Operator: Brandon Anaya MDBasophils/100 WBC (Bld)0 %Normal0-2MMercy Medical CenterComment on above:Performed By: #### CDP, CP, LIP, TROPI, LIPRF, GLYHGB #### [facility] [employer] [address] [place] [address] Mottler Operator: Brandon Anaya MDEosinophils (Bld) [#/Vol]0.10 10*3/uLNormal 0.0-0.4Mckitrick Hospitalcy [facility]clair Medical CenterComment on above:Performed By: #### CDP, CP, LIP, TROPI, LIPRF, GLYHGB #### [facility] [employer] [address] [place] [address] Mottler Operator: Brandon Anaya MDEosinophils/100 WBC (Bld)1 %Normal1-4F[facility] HospitalComment on above:Performed By: #### CDP, CP, LIP, TROPI, LIPRF, GLYHGB #### [address] [address] Mottler Operator: Brandon Anaya MDImmature granulocytes (Bld) [#/Vol]1 %Skag4PcmbxFayette County Memorial HospitalComment on above:Performed By: #### CDP, CP, LIP, TROPI, LIPRF, GLYHGB #### [facility] [employer] [address] [place] [address] Mottler Operator: Brandon Anaya MDLymphocytes (Bld) [#/Vol]2.80 10*3/uLNormal 1.0-4.8F[facility] HospitalComment on above:Performed By: #### CDP, CP, LIP, TROPI, LIPRF, GLYHGB #### [facility] [employer] [address] [place] [address] Mottler Operator: Kortney Mcmanusmphocytes/100 WBC (Bld)28 %Kksulj55-79Ycgog Hawk Springs Medical CenterComment on above:Performed By: #### CDP, CP, LIP, TROPI, LIPRF, GLYHGB #### [address] [address] Mottler Operator: Brandon Anaya MDMonocytes (Bld) [#/Vol]0.50 10*3/uLNormal0.1-0.8 [facility] HospitalComment on above:Performed By: #### CDP, CP, LIP, TROPI, LIPRF, GLYHGB #### [address] [address] Mottler Operator: Brandon Anaya MDMonocytes/100 WBC (Bld)5 %Normal1-7F[facility] HospitalComment on above:Performed By: #### CDP, CP, LIP, TROPI, LIPRF, GLYHGB #### [facility] [employer] [address] [place] [address] Mottler Operator: Brandon Anaya MDMorphology Alfredo (Bld) [Interp]ANISOCYTOSIS PRESENTNormalFayette County Memorial HospitalComment on above:Performed By: #### CDP, CP, LIP, TROPI, LIPRF, GLYHGB #### [facility] [employer] [address] [place] [address] Mottler Operator: Brandon Anaya MDNeutrophil (Seg)62 %Asijet68-07ZlmoaFayette County Memorial HospitalComment on above:Performed By: #### CDP, CP, LIP, TROPI, LIPRF, GLYHGB #### [facility] [employer] [address] [place] [address] Mottler Operator: Brandon Anaya MDErythrocyte distribution width (RBC) [Ratio]14.7 %High11.8-14.4F[facility] Memorial HospitalComment on above:Performed By: #### CDP, CP, LIP, TROPI, LIPRF, GLYHGB #### [address] [address] Mottler Operator: Brandon Anaya MDHematocrit (Bld) [Volume fraction]39.5 %Normal 36.3-47.1MMercy Medical CenterComment on above:Performed By: #### CDP, CP, LIP, TROPI, LIPRF, GLYHGB #### [address] [address] Mottler Operator: Brandon Anaya MDHemoglobin (Bld) [Mass/Vol]12.9 g/dLNormal 11.9-15.1MMercy Medical CenterComment on above:Performed By: #### CDP, CP, LIP, TROPI, LIPRF, GLYHGB #### [address] [address] Mottler Operator: LIZZY McmanusCH (RBC) [Entitic mass]29.5 qnFazima39.2-33.5 [facility] HospitalComment on above:Performed By: #### CDP, CP, LIP, TROPI, LIPRF, GLYHGB #### [address] [address] Mottler Operator: LIZZY McmanusCHC (RBC) [Mass/Vol]32.7 g/oOSoxwkx49.4-34.8 [facility] HospitalComment on above:Performed By: #### CDP, CP, LIP, TROPI, LIPRF, GLYHGB #### [address] [address] Mottler Operator: LIZZY McmanusCV (RBC) [Entitic vol]90.2 hAFznidd18.6-102.9 [facility] HospitalComment on above:Performed By: #### CDP, CP, LIP, TROPI, LIPRF, GLYHGB #### [address] [address] Mottler Operator: JOSIE Mcmanus Automated0.0 per 100 WBCNormal0.0F[facility] Memorial HospitalComment on above:Performed By: #### CDP, CP, LIP, TROPI, LIPRF, GLYHGB #### [facility] [employer] [address] [place] [address] Mottler Operator: Nadeem Mcmanus mean volume (Bld) [Entitic vol]10.1 fL Normal8.1-13.5F[facility] Memorial HospitalComment on above:Performed By: #### CDP, CP, LIP, TROPI, LIPRF, GLYHGB #### [address] [address] Mottler Operator: Bon Mcmanus (Bld) [#/Vol]190 10*3/eQSlgdqi092-898 [facility] HospitalComment on above:Performed By: #### CDP, CP, LIP, TROPI, LIPRF, GLYHGB #### [facility] [employer] [address] [place] [address] Mottler Operator: RICHA Mcmanus (Bld) [#/Vol]4.38 10*6/uLNormal3.95-5.11 [facility] HospitalComment on above:Performed By: #### CDP, CP, LIP, TROPI, LIPRF, GLYHGB #### [facility] [employer] [address] [place] [address] Mottler Operator: LUCIAN Mcmanus (Bld) [#/Vol]10.0 10*3/uLNormal3.5-11.3MMercy Medical CenterComment on above:Performed By: #### CDP, CP, LIP, TROPI, LIPRF, GLYHGB #### [facility] [employer] [address] [place] [address] Mottler Operator: Gustabo McmanusNOT REPORTEDNevada Regional Medical CenteralFayette County Memorial HospitalComment on above:Performed By: #### CDP, CP, LIP, TROPI, LIPRF, GLYHGB #### [facility] [address] [place] [address] Mottler Operator: BLADIMIR Mcmanuslatelets (Bld) [#/Vol]NOT REPORTEDNormalFayette County Memorial HospitalComment on above:Performed By: #### CDP, CP, LIP, TROPI, LIPRF, GLYHGB #### [facility] [address] [place] [address] Mottler Operator: RICHA Mcmanus morphology finding Nom (Bld)NOT REPORTED [facility]red Hospital DaytonComment on above:Performed By: #### CDP, CP, LIP, TROPI, LIPRF, GLYHGB #### [facility] [address] [place] [address] Mottler Operator: LUCIAN Mcmanus MorphologyNOT REPORTEDNormOhioHealth Marion General HospitalComment on above:Performed By: #### CDP, CP, LIP, TROPI, LIPRF, GLYHGB #### [facility] [address] [place] [address] Mottler Operator: DANYELL Mcmanus PLASMA FREEon 10-14-2019 Metaneph/Plasma InterCloverdale, KYComment on above:(NOTE) INTERPRETIVE INFORMATION: Metanephrines, Plasma [...] should be considered. See Compliance Statement B: [email or web address] Performed By: [facility] [address] [place] [id number] Tech Intern: Nik Rosas MD, MS Metanephrine0.14 nmol/L0 - 0.49 nmol/LMPremier Health Miami [facility] Hospital South [place], KYNormetanephrine0.73 nmol/L0 - 0.89 nmol/LMPremier Health [facility] [place], KYMetanephrine, Plasmaon 10-14-2019 Metaneph InterpSee NoteNormalFayette County Memorial HospitalComment on above: Result Comment: (NOTE) INTERPRETIVE [...] should be considered. See Compliance Statement B: [employer] Performed By: [facility] [address] [place], [place] [id number] Tech Intern: Nik Rosas MD, MSPerformed By: #### CDP, CP, LIP, TROPI, LIPRF, GLYHGB #### [facility] [address] [place] [address] [phone] Mottler Operator: LIZZY Mcmanusetanephrine0.14 nmol/LNormal0.00-0.49F[facility] HospitalComment on above:Performed By: #### CDP, CP, LIP, TROPI, LIPRF, GLYHGB #### [facility] [address] [place] [address] [phone] Mottler Operator: Brandon Anaya MDNosharleneetanephrine0.73 nmol/LNormal0.00-0.89F[facility] HospitalComment on above:Performed By: #### CDP, CP, LIP, TROPI, LIPRF, GLYHGB #### [facility] [address] [place] [address] Mottler Operator: BLADIMIR McmanusOC Glucose Fingerstickon [id number] [Mass/Vol]86 mg/dL65 - 105 mg/dLUniversity Hospitals [facility], KYGlucose [Mass/Vol]105 mg/dL 65 - 105 mg/dLUniversity Hospitals [facility], KYGlucose [Mass/Vol]159 mg/jGDqtb63 - 105 mg/dL [facility], KYInterpretation and review of laboratory resultsAbnoThe Surgical Hospital at Southwoods, KYGlucose [Mass/Vol]113 mg/xPBghj63 - 105 mg/dLUniversity Hospitals [facility], [place] Interpretation and review of laboratory resultsAbnoThe Surgical Hospital at Southwoods, KYT. pallidum Abon 10-14-2019T. pallidum, IgGNONREACTIVENONREACTIVEUniversity Hospitals E[facility] Center, KYComment on above: T. pallidum antibodies are not detected. There is no serological evidence of infection with T. pallidum (early primary syphilis cannot be excluded). Retest in 2-4 weeks if syphilis is clinically suspect. T.pallidum Ab Screenon 10-14-2019T.pallidum Ab ScreenNONREACTIVEAshtabula County Medical CenterComment on above:Result Comment: T. pallidum antibodies are not detected. There is no serological evidence of infection with T. pallidum (early primary syphilis cannot be excluded). Retest in 2-4 weeks if syphilis is clinically suspect.Performed By: #### CDP, CP, LIP, TROPI, LIPRF, GLYHGB #### [facility] [address] [place] [address] Mottler Operator: Brandon Anaya MDAMMONIAon [id number] (P) [Mass/Vol]28 umol/L11 - 51 umol/LMercy [facility] [place], KYAmmoniaon [id number] (P) [Mass/Vol]28 umol/HMzsafa22-05HnvmlFayette County Memorial HospitalComment on above: Performed By: #### CDP, CP, LIP, TROPI, LIPRF, GLYHGB #### [facility] [address] [place] [phone] Mottler Operator: MASHA Mcmanus GAS, VENOUSon [id number] TestNOT REPORTEDMercy Health- [place], KYaPTT Coag (Bld) [Time]37.0 sMercy Health- [place], [place] Carboxyhemoglobin1.3 %0 - 5 %[facility]- [place], KYComment on above: Reference Range: Non-Smokers 0-2% Average Smoker 2-4% Heavy Smoker <10% VAE0ENBS AIRMercy Health- [place], KYHCO3, Yrluek68.4 mmol/L24 - 30 mmol/LMercy Health- [place], KYInterpretation and review of laboratory resultsAbnormalMercy Health- [place], KYMethemoglobinNOT REPORTED0 - 1.5 %[facility]- [place], KYModeNOT REPORTEDMercy Health- [place], KYNegative Base Excess, VenNOT REPORTED0 - 2 mmol/L [facility]- [place], KYNOTIFICATIONNOT REPORTEDMercy Health- [place], KYNOTIFICATION TIMENOT REPORTEDMercy Health- [place], KYO2 Device/Flow/%NOT REPORTEDMercy Health- [place], KYOxygen saturation in Blood78.1 %60 - 85 %[facility]- [place], KYOxyhemoglobin NOT QPXNHSBY67 - 98 %[facility]- [place], KYpCO2, Ven42.6Mercy [...] REPORTED [facility]- [place], KYText for RespiratoryNOT REPORTEDSelect [facility]- [place], KYTotal Hb NOT CZSNXAUH01 - 16 g/dlSelect Medical Specialty Hospital [facility] [place]- [place], KYTotal RateNOT REPORTEDSelect [facility] [place]- [place], KYVTNOT REPORTEDSelect [facility] [place]- [place], KYBasic Metab w/rfx MGon 10-13-2019 Potassium [Moles/Vol]3.4 mmol/LLow3.7-5.3MMercy Medical CenterComment on above:Performed By: #### CDP, CP, LIP, TROPI, LIPRF, GLYHGB #### [employer] [address] [place] [address] Mottler Operator: Brandon Anaya MD(cont.)[facility] Comment on above:Result Comment: Average GFR for 70 or more years old: 75 mL/min/1.73sq m Chronic Kidney Disease: <60 mL/min/1.73sq m Kidney failure: <15 mL/min/1.73sq m eGFR calculated using average adult body mass. Additional eGFR calculator available at: http://www.Kazeon.Mobile Event Guide/multiple_crcl_2012.htmPerformed By: #### CDP, CP, LIP, TROPI, LIPRF, GLYHGB #### [employer] [address] [place] [address] Mottler Operator: James Mcmanus gap [Moles/Vol]16 mmol/LNormal9-17F[facility] Memorial HospitalComment on above:Performed By: #### CDP, CP, LIP, TROPI, LIPRF, GLYHGB #### [facility] [place] [address] Mottler Operator: Brandon Anaya MDCalcium [Mass/Vol]9.0 mg/dLNormal8.6-10.4F[facility] HospitalComment on above:Performed By: #### CDP, CP, LIP, TROPI, LIPRF, GLYHGB #### [employer] [address] [place] [address] Mottler Operator: NEHAL Mcmanushloride [Moles/Vol]90 mmol/XUta86-842KufswFayette County Memorial HospitalComment on above:Performed By: #### CDP, CP, LIP, TROPI, LIPRF, GLYHGB #### [facility] [employer] [address] [place] [address] Mottler Operator: Brandon Anaya MDCO2 [Moles/Vol]25 mmol/LOweoin35-99MsfayFayette County Memorial HospitalComment on above:Performed By: #### CDP, CP, LIP, TROPI, LIPRF, GLYHGB #### [facility] [employer] [address] [place] [address] Mottler Operator: NEHAL Mcmanusreatinine [Mass/Vol]0.47 mg/dLLow0.50-0.90F[facility] HospitalComment on above:Performed By: #### CDP, CP, LIP, TROPI, LIPRF, GLYHGB #### [facility] [employer] [address] [place] [address] Mottler Operator: Brandon Anaya MDGFR, Amer>60Normal>60[facility] HospitalComment on above:Performed By: #### CDP, CP, LIP, TROPI, LIPRF, GLYHGB #### [place] [address] Mottler Operator: Brandon Anaya MDGFR,non Amer>60Normal>60[facility] HospitalComment on above:Performed By: #### CDP, CP, LIP, TROPI, LIPRF, GLYHGB #### [facility] [employer] [address] [place] [address] Mottler Operator: Brandon Anaya MDGlucose [Mass/Vol]113 mg/iMYpgs47-56Slzkv [facility]clair Medical CenterComment on above:Performed By: #### CDP, CP, LIP, TROPI, LIPRF, GLYHGB #### [facility] [address] [place] [address] Mottler Operator: FABIANA Mcmanusodium [Moles/Vol]131 mmol/SHvg175-707CrfhkFayette County Memorial HospitalComment on above:Performed By: #### CDP, CP, LIP, TROPI, LIPRF, GLYHGB #### [facility] [address] [place] [address] Mottler Operator: Brandon Anaya MDUrea nitrogen [Mass/Vol]16 mg/dLNormal8-23F[facility] HospitalComment on above:Performed By: #### CDP, CP, LIP, TROPI, LIPRF, GLYHGB #### [facility] [address] [place] [address] Mottler Operator: RADHA Mcmanus/CRE RatioNOT REPORTEDNormal9-20[facility] HospitalComment on above:Performed By: #### CDP, CP, LIP, TROPI, LIPRF, GLYHGB #### [facility] [address] [place] [address] Mottler Operator: FABIANA Mcmanustaging:NOT REPORTEDNormalFayette County Memorial HospitalComment on above:Performed By: #### CDP, CP, LIP, TROPI, LIPRF, GLYHGB #### [facility] [address] [place] [address] Mottler Operator: Josh Mcmanus Metabolic Panel w/ Reflex to MGon [id number] gap [Moles/Vol]16 mmol/L9 - 17 mmol/LMercy Health- [place], KYBun/Cre RatioNOT REPORTEDMer Health- [place], KYCalcium [Mass/Vol]9.0 mg/dL8.6 - 10.4 mg/dLMercy Health- [place], KYChloride [Moles/Vol]90 mmol/LLow98 - 107 mmol/LMercy Health- [place], KYCO2 [Moles/Vol]25 mmol/L20 - 31 mmol/LMercy Health- [place], [place] Creatinine [Mass/Vol]0.47 mg/dLLow0.5 - 0.9 mg/dLUniversity Hospitals [facility], KYGFR >60>60 mL/minUniversity Hospitals Elyria Medical Center, KYGFR Non->60>60 mL/min [facility], KYGFR/1.73 sq M predicted among non-blacks MDRD (S/P/Bld) [Vol rate/Area]NOT REPORTEDUniversity Hospitals [facility], KYGFR/1.73 sq M predicted among non- blacks MDRD (S/P/Bld) [Vol rate/Area][facility], KYComment on above: Average GFR for 70 or more years old: 75 mL/min/1.73sq m Chronic Kidney Disease: <60 mL/min/1.73sq m Kidney failure: <15 mL/min/1.73sq m eGFR calculated using average adult body mass. Additional eGFR calculator available at: http://www.Best Before Media/multiple_crcl_2011.htm Glucose [Mass/Vol]113 mg/dCQcaj17 - 99 mg/dLUniversity Hospitals Elyria [facility], KYInterpretation and review of laboratory resultsAbnormalUniversity Hospitals E[facility], KYPotassium [Moles/Vol]3.4 mmol/LLow3.7 - 5.3 mmol/[facility], KYSodium [Moles/Vol] 131 mmol/KOlf988 - 144 mmol/[facility], KYUrea nitrogen [Mass/Vol]16 mg/dL8 - 23 mg/dLUniversity Hospitals Elyria [facility] Center, KYCBC auto differentialon [id number] (Bld) [#/Vol]0.07 10*3/[facility], KYBasophils/100 WBC (Bld)1 %0 - 2 % [facility], KYDifferential TypeNOT REPORTEDUniversity Hospitals [facility], KYEosinophils (Bld) [#/Vol]10*3/uLUniversity Hospitals Elyria Medical Center, KYEosinophils/100 WBC (Bld)0 %Low1 - 4 % [facility], KYErythrocyte distribution width (RBC) [Ratio]15.0 %High11.8 - 14.4 %[facility] [place] [place], KYHematocrit (Bld) [Volume fraction]45.5 %36.3 - 47.1 % [facility] [place]- [place], KYHemoglobin (Bld) [Mass/Vol]14.5 g/dL11.9 - 15.1 g/dLSelect Medical Specialty Hospital - [place]- [place], KYImmature granulocytes (Bld) [#/Vol]0.14 10*3/uLSelect Medical Specialty Hospital - [place]- [place], KYImmature granulocytes (Bld) [#/Vol]1 %Ncmg4LtsaoSelect Medical Specialty Hospital - [place]- [place], KYInterpretation and review of laboratory resultsAbnormalSelect Medical Specialty Hospital [facility] [place]- [place], KYLymphocytes (Bld) [#/Vol]2.84 10*3/uLSelect Medical Specialty Hospital - [place]- [place], KYLymphocytes/100 WBC (Bld)23 %Low24 - 43 % [facility] [place]- [place], KYMCH (RBC) [Entitic mass]29.8 pg25.2 - 33.5 pgMer[facility] Health [facility] [place], KYMCHC (RBC) [Mass/Vol]31.9 g/dL28.4 - 34.8 g/dLMercy Health Fairfield Hospital [place], KYMCV (RBC) [Entitic vol]93.4 fL82.6 - 102.9 fLSelect Medical Specialty Hospital - [place]- [place], KYMonocytes (Bld) [#/Vol]1.22 10*3/uLHighSelect Medical Specialty Hospital [facility] [place]- [place], KYMonocytes/100 WBC (Bld)10 %3 - 12 % [facility] [place]- [place], KYPlatelet mean volume (Bld) [Entitic vol]10.5 fL8.1 - 13.5 fL [facility] [place], KYPlatelets (Bld) [#/Vol]NOT REPORTEDSelect [facility] Specialty [facility] [place], [place] Platelets (Bld) [#/Vol]210 10*3/uLSelect Medical Specialty Hospital [facility] [place]- [place], KYRBC (Bld) [#/Vol]4.87 10*6/uL3.95 - 5.11 m/uLSelect Medical Specialty Hospital - [place]- [place], KYRBC morphology finding Nom (Bld) ANISOCYTOSIS PRESENTSelect Medical Specialty Hospital - [place]- [place], KYSegmented neutrophils/100 WBC (Bld)65 % 36 - 65 %[facility] Absolute8.01[facility] (Bld) [#/Vol]12.3 10*3/uLHighAvita Health System [facility] (Bld) [#/Vol]0.0 10*3/uL0.0 per 100 WBCUniversity Hospitals Elyria Medical Center, [facility] MorphologyNOT REPORTEDUniversity Hospitals E[facility], OHCB with Diffon [id number]. Basophil0.07 k/uLNormal0.00-0.20[facility] HospitalComment on above:Performed By: #### CDP, CP, LIP, TROPI, LIPRF, GLYHGB #### [facility] [employer] [address] [place] [address] Mottler Operator: Marie Mcmanus.Imm.Granulocyte0.14 k/uLNormal0.00-0.30F[facility] County Memorial HospitalComment on above:Performed By: #### CDP, CP, LIP, TROPI, LIPRF, GLYHGB #### [employer] [address] [place] [address] Mottler Operator: Marie Mcmanus.Neutrophil (Seg)8.01 k/uLNormal1.50-8.10 [facility] HospitalComment on above:Performed By: #### CDP, CP, LIP, TROPI, LIPRF, GLYHGB #### [facility] [employer] [address] [place] [address] Mottler Operator: Brandon Anaya MDBasophils/100 WBC (Bld)1 %Normal0-2MMercy Medical CenterComment on above:Performed By: #### CDP, CP, LIP, TROPI, LIPRF, GLYHGB #### [facility] [employer] [address] [place] [address]284 Mottler Operator: Brandon Anaya MDEosinophils (Bld) [#/Vol]10*3/uLNormal0.00-0.44 [facility] HospitalComment on above:Performed By: #### CDP, CP, LIP, TROPI, LIPRF, GLYHGB #### [facility] [employer] [address] [place] [address] Mottler Operator: Brandon Anaya MDEosinophils/100 WBC (Bld)0 %Low1-4F[facility] HospitalComment on above:Performed By: #### CDP, CP, LIP, TROPI, LIPRF, GLYHGB #### [facility] [employer] [address] [place] [address] Mottler Operator: Brandon Anaya MDErythrocyte distribution width (RBC) [Ratio]15.0 %High11.8-14.4F[facility] HospitalComment on above:Performed By: #### CDP, CP, LIP, TROPI, LIPRF, GLYHGB #### [facility] [employer] [address] [place] [address] Mottler Operator: Brandon Anaya MDHematocrit (Bld) [Volume fraction]45.5 %Normal 36.3-47.1MMercy Medical CenterComment on above:Performed By: #### CDP, CP, LIP, TROPI, LIPRF, GLYHGB #### [facility] [employer] [address] [place] [address] Mottler Operator: Brandon Anaya MDHemoglobin (Bld) [Mass/Vol]14.5 g/dLNormal 11.9-15.1MMercy Medical CenterComment on above:Performed By: #### CDP, CP, LIP, TROPI, LIPRF, GLYHGB #### [facility] [employer] [address] [place] [address] Mottler Operator: Brandon Anaya MDImmature granulocytes (Bld) [#/Vol]1 %Zauf0QvwtzFayette County Memorial HospitalComment on above:Performed By: #### CDP, CP, LIP, TROPI, LIPRF, GLYHGB #### [facility] [address] [place] [address] Mottler Operator: Brandon Anaya MDLymphocytes (Bld) [#/Vol]2.84 10*3/uLNormal 1.10-3.70[facility] HospitalComment on above:Performed By: #### CDP, CP, LIP, TROPI, LIPRF, GLYHGB #### [address] [address] Mottler Operator: Kortney Mcmanusmphocytes/100 WBC (Bld)23 %Ofk59-41GflbaFayette County Memorial HospitalComment on above:Performed By: #### CDP, CP, LIP, TROPI, LIPRF, GLYHGB #### [address] [address] Mottler Operator: LIZZY McmanusCH (RBC) [Entitic mass]29.8 ncJajscp18.2-33.5 [facility] HospitalComment on above:Performed By: #### CDP, CP, LIP, TROPI, LIPRF, GLYHGB #### [address] [address] Mottler Operator: LIZZY McmanusCHC (RBC) [Mass/Vol]31.9 g/wGNkrfoo16.4-34.8 [facility] HospitalComment on above:Performed By: #### CDP, CP, LIP, TROPI, LIPRF, GLYHGB #### [facility] [employer] [address] [place] [address] Mottler Operator: LIZZY McmanusCV (RBC) [Entitic vol]93.4 qJDyavvp74.6-102.9 [facility] HospitalComment on above:Performed By: #### CDP, CP, LIP, TROPI, LIPRF, GLYHGB #### [facility] [employer] [address] [place] [address] Mottler Operator: Brandon Madoff, MDMonocytes (Bld) [#/Vol]1.22 10*3/uLHigh0.10-1.20 [facility] HospitalComment on above:Performed By: #### CDP, CP, LIP, TROPI, LIPRF, GLYHGB #### [address] [address] Mottler Operator: LIZZY Mcmanusonocytes/100 WBC (Bld)10 %Normal3-12F[facility] HospitalComment on above:Performed By: #### CDP, CP, LIP, TROPI, LIPRF, GLYHGB #### [address] [address] Mottler Operator: Shakir Mcmanus (Seg)65 %Hglmyu49-05WdzihFayette County Memorial HospitalComment on above:Performed By: #### CDP, CP, LIP, TROPI, LIPRF, GLYHGB #### [address] [address] Mottler Operator: Brandon Anaya MDNRBC Automated0.0 per 100 WBCNormal0.0F[facility] HospitalComment on above:Performed By: #### CDP, CP, LIP, TROPI, LIPRF, GLYHGB #### [address] [address] Mottler Operator: Nadeem Mcmanus mean volume (Bld) [Entitic vol]10.5 fL Normal8.1-13.5F[facility] HospitalComment on above:Performed By: #### CDP, CP, LIP, TROPI, LIPRF, GLYHGB #### [address] [address] Mottler Operator: Geremias Mcmanustemariluz (Bld) [#/Vol]210 10*3/oWAswkhq775-275 [facility] HospitalComment on above:Performed By: #### CDP, CP, LIP, TROPI, LIPRF, GLYHGB #### [facility] [employer] [address] [place] [address] Mottler Operator: RICHA Mcmanus (Bld) [#/Vol]4.87 10*6/uLNormal3.95-5.11 [facility] HospitalComment on above:Performed By: #### CDP, CP, LIP, TROPI, LIPRF, GLYHGB #### [address] [address] Mottler Operator: RICHA Mcmanus morphology finding Nom (Bld)ANISOCYTOSIS PRESENTKindred Hospital DaytonComment on above:Performed By: #### CDP, CP, LIP, TROPI, LIPRF, GLYHGB #### [facility] [employer] [address] [place] [address] Mottler Operator: LUCIAN Mcmanus (Bld) [#/Vol]12.3 10*3/uLHigh3.5-11.3MMercy Medical CenterComment on above:Performed By: #### CDP, CP, LIP, TROPI, LIPRF, GLYHGB #### [facility] [employer] [address] [place] [address] Mottler Operator: Gustabo Mcmanus PerformedNOT REPORTEDNormalFayette County Memorial HospitalComment on above:Performed By: #### CDP, CP, LIP, TROPI, LIPRF, GLYHGB #### [facility] [employer] [address] [place] [address] Mottler Operator: Bon Mcmanus (Bld) [#/Vol]NOT REPORTEDNormalFayette County Memorial HospitalComment on above:Performed By: #### CDP, CP, LIP, TROPI, LIPRF, GLYHGB #### [facility] [employer] [address] [place] [address] Mottler Operator: LUCIAN Mcmanus MorphologyNOT REPORTEDKindred Hospital DaytonComment on above:Performed By: #### CDP, CP, LIP, TROPI, LIPRF, GLYHGB #### [employer] [address] [place] [address] [phone] Mottler Operator: Brandon Anaya, MDMagnesiumon [id number] [Mass/Vol]2.2 mg/dLNormal1.6-2.6[facility]clair Medical CenterComment on above:Performed By: #### CDP, CP, LIP, TROPI, LIPRF, GLYHGB #### [employer] [address] [place] [address] [phone] Mottler Operator: Brandon Anaya MDMagnesium [Mass/Vol]2.2 mg/dL1.6 - 2.6 mg/dL [facility], OHPOC Glucose Fingerstickon [id number] [Mass/Vol]121 mg/vIAmek59 - 105 mg/dLUniversity Hospitals Elyria [facility], OHInterpretation and review of laboratory resultsAbOhio State University [facility], KYGlucose [Mass/Vol]100 mg/dL65 - 105 mg/dLUniversity Hospitals [facility], KYGlucose [Mass/Vol]104 mg/dL65 - 105 mg/dLUniversity Hospitals [facility], KYGlucose [Mass/Vol]123 mg/nRXilp02 - 105 mg/dLUniversity Hospitals [facility], [place] Interpretation and review of laboratory resultsAbOhio State University Wex[facility], [place] Venous Blood Gaseson [id number] Temp.37.0Kindred Hospital DaytonComment on above:Performed By: #### CDP, CP, LIP, TROPI, LIPRF, GLYHGB #### [employer] [address] [place] [address] Mottler Operator: NEHAL Mcmanusarboxy Hgb1.3 %Normal0-5F[facility] Memorial HospitalComment on above:Result Comment: Reference Range: Non-Smokers 0-2% Average Smoker 2-4% Heavy Smoker <10%Performed By: #### CDP, CP, LIP, TROPI, LIPRF, GLYHGB #### [facility] [address] [place] [address] Mottler Operator: Brandon Anaya MDFIO2ROOM AIRNoTrinity Health System West CampusComment on above:Performed By: #### CDP, CP, LIP, TROPI, LIPRF, GLYHGB #### [address] [address] Mottler Operator: Brandon Anaya MDHCO3 (Bld) [Moles/Vol]28.4 mmol/GVkfdds78-91 [facility] HospitalComment on above:Performed By: #### CDP, CP, LIP, TROPI, LIPRF, GLYHGB #### [address] [address] Mottler Operator: Brandon Anaya MDOxygen (Bld) [Partial pressure]41.1 mm[Hg]Normal 30-50F[facility] HospitalComment on above:Performed By: #### CDP, CP, LIP, TROPI, LIPRF, GLYHGB #### [address] [address] Mottler Operator: Brandon Anaya MDOxygen saturation in Blood78.1 %Zzzznn22.0-85.0 [facility] HospitalComment on above:Performed By: #### CDP, CP, LIP, TROPI, LIPRF, GLYHGB #### [address] [address] Mottler Operator: Bladimir McmanusCO242.5Pajsza51-53TkncbFayette County Memorial HospitalComment on above:Performed By: #### CDP, CP, LIP, TROPI, LIPRF, GLYHGB #### [address] [address] Mottler Operator: Bladimir Mcmanus (Bld)7.439 [pH]High7.320-7.420F[facility] HospitalComment on above:Performed By: #### CDP, CP, LIP, TROPI, LIPRF, GLYHGB #### [facility] [address] [place] [address] Mottler Operator: BLADIMIR Mcmanusositive Base Excess4.2 mmol/LHigh0.0-2.0[facility] HospitalComment on above:Performed By: #### CDP, CP, LIP, TROPI, LIPRF, GLYHGB #### [facility] [address] [place] [address] Mottler Operator: Lalita Mcmanus TestNOT REPORTEDrmalFayette County Memorial HospitalComment on above:Performed By: #### CDP, CP, LIP, TROPI, LIPRF, GLYHGB #### [address] [address] Mottler Operator: LIZZY McmanusethemoglobinNOT REPORTEDNormal0.0-1.5[facility] HospitalComment on above:Performed By: #### CDP, CP, LIP, TROPI, LIPRF, GLYHGB #### [facility] [address] [place] [address] Mottler Operator: LIZZY McmanusodeNOT REPORTEDrmOhioHealth Marion General HospitalComment on above:Performed By: #### CDP, CP, LIP, TROPI, LIPRF, GLYHGB #### [facility] [address] [place] [address] Mottler Operator: Brandon Anaya MDNegative Base ExcessNOT REPORTEDNormal0.0-2.0 [facility] HospitalComment on above:Performed By: #### CDP, CP, LIP, TROPI, LIPRF, GLYHGB #### [facility] [address] [place] [address] Mottler Operator: Brandon Anaya MDNotification TimeNOT REPORTEDNormalFayette County Memorial HospitalComment on above:Performed By: #### CDP, CP, LIP, TROPI, LIPRF, GLYHGB #### [facility] [address] [place] [address] Mottler Operator: Brandon Anaya MDNotification:NOT REPORTEDNormalMercy Doctor'S Hospital Montclair Medical CenterComment on above:Performed By: #### CDP, CP, LIP, TROPI, LIPRF, GLYHGB #### [facility] [address] [place] [address] Mottler Operator: Brandon Anaya MDO2 Device/Flow/%NOT REPORTEDNormalMercy Doctor'S Hospital Montclair Medical CenterComment on above:Performed By: #### CDP, CP, LIP, TROPI, LIPRF, GLYHGB #### [facility] [address] [place] [address] Mottler Operator: Brandon Anaya MDOxyhemoglobinNOT ANBNSZTLNgjksd99.0-98.0MerWhittier Hospital Medical CenterComment on above:Performed By: #### CDP, CP, LIP, TROPI, LIPRF, GLYHGB #### [facility] [address] [place] [address] Mottler Operator: BLADIMIR Mcmanusco2 Adj'd for Temp.NOT MMLGWBALIhdclc27-76CqlqxWhittier Hospital Medical CenterComment on above:Performed By: #### CDP, CP, LIP, TROPI, LIPRF, GLYHGB #### [facility] [address] [place] [address] Mottler Operator: BLADIMIR McmanusEEP/CPAPNOT REPORTEDNormalMercy Doctor'S Hospital Montclair Medical CenterComment on above:Performed By: #### CDP, CP, LIP, TROPI, LIPRF, GLYHGB #### [facility] [address] [place] [address] Mottler Operator: Brandon Anaya [facility] Adjst'd for Temp.NOT REPORTEDNormal 7.320-7.420MerWhittier Hospital Medical CenterComment on above:Performed By: #### CDP, CP, LIP, TROPI, LIPRF, GLYHGB #### [facility] [address] [place] [address] Mottler Operator: Erin Mcmanus Adj'd for Temp.NOT YCXGIMFNYqzyog26-57PlbmbFayette County Memorial HospitalComment on above:Performed By: #### CDP, CP, LIP, TROPI, LIPRF, GLYHGB #### [facility] [address] [place] [address] Mottler Operator: MARIO McmanusVNOT REPORTEDrmalFayette County Memorial HospitalComment on above:Performed By: #### CDP, CP, LIP, TROPI, LIPRF, GLYHGB #### [address] [address] Mottler Operator: Ashley Mcmanus. PositionNOT REPORTEDNormalMerWhittier Hospital Medical CenterComment on above:Performed By: #### CDP, CP, LIP, TROPI, LIPRF, GLYHGB #### [facility] [address] [place] [address] Mottler Operator: Shannan Mcmanus RateNOT REPORTEDNormalFayette County Memorial HospitalComment on above:Performed By: #### CDP, CP, LIP, TROPI, LIPRF, GLYHGB #### [facility] [address] [place] [address] Mottler Operator: Cooper Mcmanus DrawnNOT REPORTEDNormalFayette County Memorial HospitalComment on above:Performed By: #### CDP, CP, LIP, TROPI, LIPRF, GLYHGB #### [facility] [address] [place] [address] Mottler Operator: Irvin Mcmanust for RespiratoryNOT REPORTEDNormalFayette County Memorial HospitalComment on above:Performed By: #### CDP, CP, LIP, TROPI, LIPRF, GLYHGB #### [facility] [address] [place] [address] Mottler Operator: Orlin Mcmanus HbNOT ZUVYAQKFRhicdk23.0-16.0[facility] HospitalComment on above:Performed By: #### CDP, CP, LIP, TROPI, LIPRF, GLYHGB #### [facility] [address] [place] [address] Mottler Operator: Orlin Mcmanus RateNOT REPORTEDNormalFayette County Memorial HospitalComment on above:Performed By: #### CDP, CP, LIP, TROPI, LIPRF, GLYHGB #### [facility] [address] [place] [address] Mottler Operator: ALEC Mcmanus REPORTEDrmalFayette County Memorial HospitalComment on above:Performed By: #### CDP, CP, LIP, TROPI, LIPRF, GLYHGB #### [facility] [address] [place] [address] Mottler Operator: Kd Mcmanusosteroneana [id number]:NOT REPORTED [facility]red Hospital DaytonComment on above:Performed By: #### CDP, CP, LIP, TROPI, LIPRF, GLYHGB #### [facility] [address] [place] [address] Mottler Operator: Josh Mcmanus Metab w/rfx MGon [id number] [Moles/Vol]3.3 mmol/LLow3.7-5.3[facility] Medical CenterComment on above: Performed By: #### CDP, CP, LIP, TROPI, LIPRF, GLYHGB #### [facility] [address] [place] [address] Mottler Operator: Brandon Anaya MD(cont.)[facility] Comment on above:Result Comment: Average GFR for 70 or more years old: 75 mL/min/1.73sq m Chronic Kidney Disease: <60 mL/min/1.73sq m Kidney failure: <15 mL/min/1.73sq m eGFR calculated using average adult body mass. Additional eGFR calculator available at: http://www.[employer]/multiple_crcl_2012.htmPerformed By: #### CDP, CP, LIP, TROPI, LIPRF, GLYHGB #### [facility] [address] [place] [address] Mottler Operator: Brandon Anaya MDAnion gap [Moles/Vol]12 mmol/LNormal9-17[facility] HospitalComment on above:Performed By: #### CDP, CP, LIP, TROPI, LIPRF, GLYHGB #### [facility] [address] [place] [address] Mottler Operator: NEHAL Mcmanusalcium [Mass/Vol]8.6 mg/dLNormal8.6-10.4[facility] HospitalComment on above:Performed By: #### CDP, CP, LIP, TROPI, LIPRF, GLYHGB #### [employer] [address] [place] [address] Mottler Operator: Brandon Anaya MDChloride [Moles/Vol]94 mmol/EZpd64-943DykhvFayette County Memorial HospitalComment on above:Performed By: #### CDP, CP, LIP, TROPI, LIPRF, GLYHGB #### [employer] [address] [place] [address] Mottler Operator: Brandon Anaya MDCO2 [Moles/Vol]26 mmol/FBauirh11-94EnoqoFayette County Memorial HospitalComment on above:Performed By: #### CDP, CP, LIP, TROPI, LIPRF, GLYHGB #### [employer] [address] [place] [address] Mottler Operator: NEHAL Mcmanusreatinine [Mass/Vol]0.46 mg/dLLow0.50-0.90[facility] HospitalComment on above:Performed By: #### CDP, CP, LIP, TROPI, LIPRF, GLYHGB #### [address] [address] Mottler Operator: Brandno Anaya MDGFR, Amer>60Normal>60[facility] HospitalComment on above:Performed By: #### CDP, CP, LIP, TROPI, LIPRF, GLYHGB #### [place] [address] Mottler Operator: Brandon Anaya MDGFR,non Amer>60Normal>60MerWhittier Hospital Medical CenterComment on above:Performed By: #### CDP, CP, LIP, TROPI, LIPRF, GLYHGB #### [place] [address] Mottler Operator: Brandon Anaya MDGlucose [Mass/Vol]136 mg/sLEqgk85-92OnotwDesert Valley HospitalComment on above:Performed By: #### CDP, CP, LIP, TROPI, LIPRF, GLYHGB #### [place] [address] Mottler Operator: FABIANA Mcmanusodium [Moles/Vol]132 mmol/UTqf459-467NmbvtFayette County Memorial HospitalComment on above:Performed By: #### CDP, CP, LIP, TROPI, LIPRF, GLYHGB #### [address] [address] Mottler Operator: Brandon Anaya MDUrea nitrogen [Mass/Vol]16 mg/dLNormal8-23[facility] HospitalComment on above:Performed By: #### CDP, CP, LIP, TROPI, LIPRF, GLYHGB #### [facility] [employer] [address] [place] [address] [place] 2892008 Mottler Operator: RADHA Mcmanus/CRE RatioNOT REPORTEDNormal9-20[facility] HospitalComment on above:Performed By: #### CDP, CP, LIP, TROPI, LIPRF, GLYHGB #### [facility] [address] [place] [address] Mottler Operator: FABIANA Mcmanustaging:NOT REPORTEDNormalFayette County Memorial HospitalComment on above:Performed By: #### CDP, CP, LIP, TROPI, LIPRF, GLYHGB #### [facility] [address] [place] [address] Mottler Operator: Josh Mcmanus Metabolic Panel w/ Reflex to MGon [id number] gap [Moles/Vol]12 mmol/L9 - 17 mmol/LMBrown Memorial Hospital, KYBun/Cre RatioNOT REPORTEDUniversity [facility], KYCalcium [Mass/Vol]8.6 mg/dL8.6 - 10.4 mg/dLUniversity Hospitals [facility], KYChloride [Moles/Vol]94 mmol/LLow98 - 107 mmol/LMBrown Memorial Hospital, KYCO2 [Moles/Vol]26 mmol/L20 - 31 mmol/LMBrown Memorial Hospital, [place] Creatinine [Mass/Vol]0.46 mg/dLLow0.5 - 0.9 mg/dLUniversity Hospitals [facility], KYGFR >60>60 mL/minUniversity Hospitals Elyria Medical Center, KYGFR Non->60>60 mL/min [facility], KYGFR/1.73 sq M predicted among non-blacks MDRD (S/P/Bld) [Vol rate/Area][facility], KYComment on above:Average GFR for 70 or more years old: 75 mL/min/1.73sq m Chronic Kidney Disease: <60 mL/min/1.73sq m Kidney failure: <15 mL/min/1.73sq m eGFR calculated using average adult body mass. Additional eGFR calculator available at: http://www.[employer]/multiple_crcl_2012.htm GFR/1.73 sq M predicted among non-blacks MDRD (S/P/Bld) [Vol rate/Area]NOT REPORTEDUniversity [facility]als [facility], OHGlucose [Mass/Vol]136 mg/gZMeef48 - 99 mg/dLUniversity Hospitals [facility], OHInterpretation and review of laboratory resultsAbnormDiley Ridge Medical Center, KYPotassium [Moles/Vol]3.3 mmol/LLow3.7 - 5.3 mmol/LMPremier Health Miami [facility] Hospital South [place], KYSodium [Moles/Vol]132 mmol/SOxn186 - 144 mmol/LMPremier Health Miami Valley Hospital South [place], KYUrea nitrogen [Mass/Vol]16 mg/dL8 - 23 mg/dLUniversity Hospitals [facility], OHCBC auto differential on [id number] (Bld) [#/Vol]0.04 10*3/[facility], [place] Basophils/100 WBC (Bld)0 %0 - 2 %[facility], OHDifferential TypeNOT REPORTEDUniversity Hospitals [facility], KYEosinophils (Bld) [#/Vol]10*3/[facility], [place] Eosinophils/100 WBC (Bld)0 %Low1 - 4 %[facility], OHErythrocyte distribution width (RBC) [Ratio]14.7 %High11.8 - 14.4 %[facility], [place] Hematocrit (Bld) [Volume fraction]40.5 %36.3 - 47.1 %[facility], [place] Hemoglobin (Bld) [Mass/Vol]12.7 g/dL11.9 - 15.1 g/dLUniversity Hospitals Elyria Medical Center, OHImmature granulocytes (Bld) [#/Vol]0.11 10*3/[facility], OHImmature granulocytes (Bld) [#/Vol]1 %Carj8NcciyUniversity Hospitals Elyria Medical Center, OHInterpretation and review of laboratory resultsAbnormDiley Ridge Medical Center, OHLymphocytes (Bld) [#/Vol]1.50 10*3/[facility], KYLymphocytes/100 WBC (Bld)12 %Low24 - 43 %[place], KYMCH (RBC) [Entitic mass]29.4 pg25.2 - 33.5 pgHudson, [place] MCHC (RBC) [Mass/Vol]31.4 g/dL28.4 - 34.8 g/dLBrown Memorial HospitalV (RBC) [Entitic vol]93.8 fL82.6 - 102.9 fLHudson, KYMonocytes (Bld) [#/Vol] 0.87 10*3/uLUniversity Hospitals Elyria Medical Center, OHMonocytes/100 WBC (Bld)7 %3 - 12 %[place], KYPlatelet mean volume (Bld) [Entitic vol]10.7 fL8.1 - 13.5 fLHudson, KYPlatelets (Bld) [#/Vol]196 10*3/uLHudson, KYPlatelets (Bld) [#/Vol]NOT REPORTEDVeterans Health Administration (Bld) [#/Vol]4.32 10*6/uL3.95 - 5.11 m/uLVeterans Health Administration morphology finding Nom (Bld)ANISOCYTOSIS PRESENT [facility], [facility] Children's Hospitalgmented neutrophils/100 WBC (Bld)79 %High36 - 65 %[place], KYSegs Absolute9.64HighHudson, KYWBC (Bld) [#/Vol]12.2 10*3/uLHighHudson, KYWBC (Bld) [#/Vol]0.0 10*3/uL0.0 per 100 WBCUniversity Hospitals Elyria Medical Center, OHW MorphologyNOT REPORTEDSycamore Medical Center with Diffon [id number]. Basophil0.04 k/uLNormal0.00-0.20[facility] Comment on above:Performed By: #### CDP, CP, LIP, TROPI, LIPRF, GLYHGB #### [employer] [place] [address] Mottler Operator: Marie Mcmanus.Imm.Granulocyte0.11 k/uLNormal0.00-0.30[facility] HospitalComment on above:Performed By: #### CDP, CP, LIP, TROPI, LIPRF, GLYHGB #### [facility] [employer] [address] [place] [address] Mottler Operator: Marie Mcmanus.Neutrophil (Seg)9.64 k/uLHigh1.50-8.10[facility] HospitalComment on above:Performed By: #### CDP, CP, LIP, TROPI, LIPRF, GLYHGB #### [facility] [employer] [address] [place] [address] Mottler Operator: Brandon Anaya MDBasophils/100 WBC (Bld)0 %Normal0-2MMercy Medical CenterComment on above:Performed By: #### CDP, CP, LIP, TROPI, LIPRF, GLYHGB #### [facility] [employer] [address] [place] [address] Mottler Operator: Brandon Anaya MDEosinophils (Bld) [#/Vol]10*3/uLNormal0.00-0.44 [facility] HospitalComment on above:Performed By: #### CDP, CP, LIP, TROPI, LIPRF, GLYHGB #### [facility] [employer] [address] [place] [address] Mottler Operator: MAU Mcmanusosinophils/100 WBC (Bld)0 %Low1-4[facility] HospitalComment on above:Performed By: #### CDP, CP, LIP, TROPI, LIPRF, GLYHGB #### [facility] [employer] [address] [place] [address] Mottler Operator: Brandon Anaya MDErythrocyte distribution width (RBC) [Ratio]14.7 %High11.8-14.4[facility] HospitalComment on above:Performed By: #### CDP, CP, LIP, TROPI, LIPRF, GLYHGB #### [facility] [address] [place] [address] Mottler Operator: Brandon Anaya MDHematocrit (Bld) [Volume fraction]40.5 %Normal 36.3-47.1MMercy Medical CenterComment on above:Performed By: #### CDP, CP, LIP, TROPI, LIPRF, GLYHGB #### [facility] [address] [place] [address] Mottler Operator: Brandon Anaya MDHemoglobin (Bld) [Mass/Vol]12.7 g/dLNormal 11.9-15.1MMercy Medical CenterComment on above:Performed By: #### CDP, CP, LIP, TROPI, LIPRF, GLYHGB #### [facility] [facility] [address] [place] [address] Mottler Operator: Brandon Anaya MDImmature granulocytes (Bld) [#/Vol]1 %Klfr9TjdpsFayette County Memorial HospitalComment on above:Performed By: #### CDP, CP, LIP, TROPI, LIPRF, GLYHGB #### [facility] [address] [place] [address] Mottler Operator: rBandon Anaya MDLymphocytes (Bld) [#/Vol]1.50 10*3/uLNormal 1.10-3.70F[facility] County Memorial HospitalComment on above:Performed By: #### CDP, CP, LIP, TROPI, LIPRF, GLYHGB #### [facility] [address] [place] [address] Mottler Operator: Luiza Mcmanushocytes/100 WBC (Bld)12 %Fic27-77QerodFayette County Memorial HospitalComment on above:Performed By: #### CDP, CP, LIP, TROPI, LIPRF, GLYHGB #### [facility] [address] [place] [address] Mottler Operator: LIZZY McmanusCH (RBC) [Entitic mass]29.4 csUyhklx75.2-33.5 [facility] HospitalComment on above:Performed By: #### CDP, CP, LIP, TROPI, LIPRF, GLYHGB #### [address] [address] Mottler Operator: LIZZY McmanusCHC (RBC) [Mass/Vol]31.4 g/oHJqiult48.4-34.8 [facility] HospitalComment on above:Performed By: #### CDP, CP, LIP, TROPI, LIPRF, GLYHGB #### [address] [address] Mottler Operator: LIZZY McmanusCV (RBC) [Entitic vol]93.8 kXDnbope52.6-102.9 [facility] HospitalComment on above:Performed By: #### CDP, CP, LIP, TROPI, LIPRF, GLYHGB #### [address] [address] Mottler Operator: LIZZY Mcmanusonocytes (Bld) [#/Vol]0.87 10*3/uLNormal 0.10-1.20[facility] Memorial HospitalComment on above:Performed By: #### CDP, CP, LIP, TROPI, LIPRF, GLYHGB #### [facility] [address] [place] [address] Mottler Operator: LIZZY Mcmanusonocytes/100 WBC (Bld)7 %Normal3-12F[facility] County Memorial HospitalComment on above:Performed By: #### CDP, CP, LIP, TROPI, LIPRF, GLYHGB #### [address] [address] Mottler Operator: Brandon Anaya MDNeutrophil (Seg)79 %Xium86-70XtlpxFayette County Memorial HospitalComment on above:Performed By: #### CDP, CP, LIP, TROPI, LIPRF, GLYHGB #### [facility] [address] [place] [address] Mottler Operator: JOSIE Mcmanus Automated0.0 per 100 WBCNormal0.0F[facility] County Memorial HospitalComment on above:Performed By: #### CDP, CP, LIP, TROPI, LIPRF, GLYHGB #### [facility] [address] [place] [address] Mottler Operator: Nadeem Mcmanus mean volume (Bld) [Entitic vol]10.7 fL Normal8.1-13.5F[facility] County Memorial HospitalComment on above:Performed By: #### CDP, CP, LIP, TROPI, LIPRF, GLYHGB #### [facility] [address] [place] [address] Mottler Operator: Bon Mcmanus (Bld) [#/Vol]196 10*3/mQVibzsl017-890 [facility] HospitalComment on above:Performed By: #### CDP, CP, LIP, TROPI, LIPRF, GLYHGB #### [facility] [address] [place] [address] Mottler Operator: DREW McmanusBC (Bld) [#/Vol]4.32 10*6/uLNormal3.95-5.11 [facility] HospitalComment on above:Performed By: #### CDP, CP, LIP, TROPI, LIPRF, GLYHGB #### [facility] [address] [place] [address] Mottler Operator: RICHA Mcmanus morphology finding Nom (Bld)ANISOCYTOSIS PRESENTNormalFayette County Memorial HospitalComment on above:Performed By: #### CDP, CP, LIP, TROPI, LIPRF, GLYHGB #### [facility] [address] [place] [address] Mottler Operator: LUCIAN Mcmanus ([facility]) [#/Vol]12.2 10*3/uLHigh3.5-11.3[facility]clair Medical CenterComment on above:Performed By: #### CDP, CP, LIP, TROPI, LIPRF, GLYHGB #### [facility] [address] [place] [address] Mottler Operator: Gustabo Mcmanus PerformedNOT REPORTEDrmalFayette County Memorial HospitalComment on above:Performed By: #### CDP, CP, LIP, TROPI, LIPRF, GLYHGB #### [facility] [address] [place] [address] Mottler Operator: Bon Mcmanus) [#/Vol]NOT REPORTEDNormOhioHealth Marion General HospitalComment on above:Performed By: #### CDP, CP, LIP, TROPI, LIPRF, GLYHGB #### [facility] [address] [place] [address] Mottler Operator: LUCIAN Mcmanus MorphologyNOT REPORTEDrmOhioHealth Marion General HospitalComment on above:Performed By: #### CDP, CP, LIP, TROPI, LIPRF, GLYHGB #### [facility] [address] [place] [address] Mottler Operator: Yane Mcmanusgnesiumon [id number] [Mass/Vol]2.2 mg/dLNormal1.6-2.6[facility] Medical CenterComment on above:Performed By: #### CDP, CP, LIP, TROPI, LIPRF, GLYHGB #### [facility] [address] [place] [address] Mottler Operator: Brandon Anaya MDMagnesium [Mass/Vol]2.2 mg/dL1.6 - 2.6 mg/dL [facility]- [place], KYPOC Glucose Fingerstickon [id number] [Mass/Vol]117 mg/cWHsdh75 - 105 mg/dLMercy Health- [place], KYInterpretation and review of laboratory resultsAbnormalMercy Health- [place], KYGlucose [Mass/Vol]115 mg/nTWnxv28 - 105 mg/dLMercy Health- [place], KYInterpretation and review of laboratory results AbnormalMer Health- [place], KYGlucose [Mass/Vol]123 mg/aUZygg24 - 105 mg/dLMercy Health- [place], KYInterpretation and review of laboratory resultsAbnormalMer Health- [place], KYGlucose [Mass/Vol]117 mg/qWOlmw54 - 105 mg/dLMer Health- [place], [place] Interpretation and review of laboratory resultsAbnormAtrium Health [facility]- [place], [place] URINALYSIS WITH MICROSCOPICon [id number], UANOT REPORTEDNoneMercy Health- [place], KYBacteria, UANOT REPORTEDNoneMercy Health- [place], KYBilirubin Urine NegativeNEGATIVEMercy Health- [place], KYCasts UA0 TO 2 HYALINE Reference range defined for non-centrifuged specimen.[facility]- [place], KYColor, UAYELLOWYELLOW [facility]- [place], KYCrystals, UANOT REPORTEDNone /HPFMercy Health- [place], [place] Epithelial Cells UA2 TO 5[facility]- [place], KYGlucose, UrNegativeNEGATIVEMercy Health- [place], KYInterpretation and review of laboratory resultsAbnormalMercy Health- [place], KYKetones Ql (U)SMALLAbnormalNEGATIVEMercy Health- [place], KYLeukocyte esterase Test strip Ql (U)NegativeNEGATIVEMercy Health- [place], KYMucus, UANOT REPORTEDNoneMercy Health- [place], KYNitrite, UrineNegativeNEGATIVEMercy Health- [place], KYOther Observations UANOT REPORTEDNOT REQ.[facility]- [place], KYpH, UA8.5High [facility]- [place], KYProtein (U) [Mass/Vol]NegativeNEGATIVEMercy Health- [place], [place] RBC (U) [#/Vol]TOO NUMEROUS TO COUNTMercy Health- [place], KYComment on above: Reference range defined for non-centrifuged specimen.Renal Epithelial, UANOT REPORTED0 /HPFUniversity Hospitals Ely[facility], KYSpecific [place], UA1.011[facility], [place] Trichomonas, UANOT REPORTEDNonMarietta Memorial Hospital, KYTurbidity UATURBIDAbnormal CLEARUniversity Hospitals Elyria Medical Center, KYUrine HgbNegativeNEGATIVEUniversity Hospitals [facility], [place] Urobilinogen, UrineNormalNormalUniversity [facility]als [facility], KYWBC, UA0 TO 2MercHCA [facility], KYYeast, UANOT REPORTEDNonMarietta Memorial Hospital, [place]-[facility], [place] Urinalysis w/ Microon 10-12-2019-----NormalFayette County Memorial Hospital Comment on above:Performed By: #### CDP, CP, LIP, TROPI, LIPRF, GLYHGB #### [facility] [address] [place] [address] Mottler Operator: Brandon Anaya MDAcetoacetic Acid,UrSMALLAbnormalCity HospitalComment on above:Performed By: #### CDP, CP, LIP, TROPI, LIPRF, GLYHGB #### [facility] [address] [place] [address] Mottler Operator: Sourav Mcmanusirubin, SemiQt,UrNegativeNormalCity HospitalComment on above:Performed By: #### CDP, CP, LIP, TROPI, LIPRF, GLYHGB #### [facility] [address] [place] [address] Mottler Operator: Maria Elena Mcmanus LM.LPF (Urine sed) [#/Area]0 TO 2 HYALINE Normal0-8F[facility] County Memorial HospitalComment on above:Result Comment: Reference range defined for non-centrifuged specimen.Performed By: #### CDP, CP, LIP, TROPI, LIPRF, GLYHGB #### [facility] [address] [place] [address] 92852 Mottler Operator: Bang Mcmanus (U)YELLOWNormalYELMerWhittier Hospital Medical CenterComment on above:Performed By: #### CDP, CP, LIP, TROPI, LIPRF, GLYHGB #### [facility] [address] [place] [address]77 Mottler Operator: Brandon Anaya MDEpithelial cells LM.HPF (Urine sed) [#/Area]2 TO 8Ljjjwc1-0Uoijl Doctor'S Hospital Montclair Medical CenterComment on above:Performed By: #### CDP, CP, LIP, TROPI, LIPRF, GLYHGB #### [facility] [address] [place] [address] Mottler Operator: Brandon Anaya MDGlucose Ql (U)NegativeNormalNEGFayette County Memorial HospitalComment on above:Performed By: #### CDP, CP, LIP, TROPI, LIPRF, GLYHGB #### [facility] [address] [place] [address] Mottler Operator: Brandon Anaya MDHemoglobin, UrNegativeNormalNEGFayette County Memorial HospitalComment on above:Performed By: #### CDP, CP, LIP, TROPI, LIPRF, GLYHGB #### [facility] [address] [place] [address] 9[address]51 Mottler Operator: Brandon Anaya MDLeukocyte esterase Test strip Ql (U)Negative NormalNEGFayette County Memorial HospitalComment on above:Performed By: #### CDP, CP, LIP, TROPI, LIPRF, GLYHGB #### [facility] [address] [place] [address] Mottler Operator: Brandon Anaya MDNitrite,UrNegativeNormalNEGFayette County Memorial HospitalComment on above:Performed By: #### CDP, CP, LIP, TROPI, LIPRF, GLYHGB #### [facility] [address] [place] [address] Mottler Operator: Brandon Anaya [facility] (U)8.5 [pH]High5.0-8.0F[facility] Memorial HospitalComment on above:Performed By: #### CDP, CP, LIP, TROPI, LIPRF, GLYHGB #### [facility] [address] [place] [address] Mottler Operator: BLADIMIR Mcmanusrotein Ql (U)NegativeNormalNEGFayette County Memorial HospitalComment on above:Performed By: #### CDP, CP, LIP, TROPI, LIPRF, GLYHGB #### [facility] [address] [place] [address] Mottler Operator: DREW McmanusBC (U) [#/Vol]TOO NUMEROUS TO COUNTNormal0-4 [facility] HospitalComment on above:Result Comment: Reference range defined for non-centrifuged specimen.Performed By: #### CDP, CP, LIP, TROPI, LIPRF, GLYHGB #### [facility] [address] [place] [address]77 Mottler Operator: FABIANA Mcmanuspecific gravity (U) [Rel density]1.011Normal 1.005-1.030F[facility] County Memorial HospitalComment on above:Performed By: #### CDP, CP, LIP, TROPI, LIPRF, GLYHGB #### [facility] [address] [place] [address] Mottler Operator: GODWIN McmanusurbidityTURBIDAbnormalCLEARMercDesert Valley HospitalComment on above:Performed By: #### CDP, CP, LIP, TROPI, LIPRF, GLYHGB #### [facility] [address] [place] [address] Mottler Operator: Jackie McmanusUrNormalNormalNORMFayette County Memorial HospitalComment on above:Performed By: #### CDP, CP, LIP, TROPI, LIPRF, GLYHGB #### [facility] [address] [place] [address] 8[address]80 Mottler Operator: Brandon Anaya MDWBC (U) [#/Vol]0 TO 0Ctdvyb5-3YkkbsFayette County Memorial HospitalComment on above:Performed By: #### CDP, CP, LIP, TROPI, LIPRF, GLYHGB #### [facility] [address] [place] [address] 9[address]35 Mottler Operator: Iwona Mcmanus sediment LM Ql (Urine sed)NOT REPORTED NormalSycamore Medical CenterComment on above:Performed By: #### CDP, CP, LIP, TROPI, LIPRF, GLYHGB #### [facility] [address] [place] [address]992 Mottler Operator: Tong Mcmanuseria LM.HPF (Urine sed) [#/Area]NOT REPORTED NormalSycamore Medical CenterComment on above:Performed By: #### CDP, CP, LIP, TROPI, LIPRF, GLYHGB #### [facility] [address] [place] [address] Mottler Operator: Andrew Mcmanus LM Nom (Urine sed)NOT REPORTEDNormal NONEFayette County Memorial HospitalComment on above:Performed By: #### CDP, CP, LIP, TROPI, LIPRF, GLYHGB #### [facility] [address] [place] [address] Mottler Operator: Brandon Anaya MDEpithelial, RenalNOT DIDTTVPZOqlmzt6IeqduFayette County Memorial HospitalComment on above:Performed By: #### CDP, CP, LIP, TROPI, LIPRF, GLYHGB #### [facility] [address] [place] [address] Mottler Operator: Raquel Mcmanusus StrandsNOT REPORTEDNormalNONEMeCommunity Hospital of San BernardinoComment on above:Performed By: #### CDP, CP, LIP, TROPI, LIPRF, GLYHGB #### [facility] [address] [place] [address] Mottler Operator: Brandon Anaya MDOther ObservationsNOT REPORTEDNormalNREQMerWhittier Hospital Medical CenterComment on above:Performed By: #### CDP, CP, LIP, TROPI, LIPRF, GLYHGB #### [facility] [address] [place] [address] Mottler Operator: Brandon Anaya MDTrichomonasNOT REPORTEDNormalNONEMeCommunity Hospital of San BernardinoComment on above:Performed By: #### CDP, CP, LIP, TROPI, LIPRF, GLYHGB #### [facility] [address] [place] [address] Mottler Operator: Samuel Mcmanusast LM Ql (Urine sed)NOT REPORTEDNormalTSEHOOTSOOI MEDICAL [facility]ENTER ([facility])E F[facility] Memorial HospitalComment on above:Performed By: #### CDP, CP, LIP, TROPI, LIPRF, GLYHGB #### [facility] [address] [place] [address] Mottler Operator: CHRISTINE Mcmanus RENAL ARTERIAL DUPLEX COMPLETEon 10-12-2019 [facility] Vascular Renal Procedure Patient Name ALEX Date of Study 10/12/2019 SHAYY Date of 1945 Gender Female Age 74 year(s) Race Room Number 2015 Corporate ID [id number] # Patient Acct [id number] # MR # [id number] [employer] 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 ! ! ! + +----+- --+ + + Renal Duplex Measurements + ++-----+----+----+----++---+----+----+----+ !Renal Artery A !!Right! !Left! !! ! ! ! ! + ++-----+----+----+----++---+----+----+----+ !Location !!PSV !EDV !RI !RAR !!PSV!EDV !RI !RAR ! + ++-----+----+----+----++---+----+----+----+ !Ostial Renal !!332 !58.5!0.82!4.83!!199!39.3!0.8 !2.89! + ++-----+----+----+----++---+----+----+----+ !Prox Renal !!200 !23.1!0.88!2.91!!173!35.6!0.79!2.51! + ++-----+----+----+----++---+----+----+----+ !Mid Renal !!179 !35.1!0.8 !2.6 !!166!30.7!0.82!2.41! + ++-----+----+----+----++---+----+----+----+ !Dist Renal !!116 !22.4!0.81!1.69!!111!24.6!0.78!1.61! + ++-----+----+----+----++---+----+----+----+ Right Miscellaneous Measurements - The average kidney length is 10.75 cm. Left Miscellaneous Measurements - The average kidney length is 10.75 cm.[facility]- ARRadha Mhpn Incoming Cardio Results From Cpa/Ge - 10/12/2019 7:54 PM EDT [facility] Vascular Renal Procedure Patient Name ALEX Date of Study 10/12/2019 SHAYY Date of 1945 Gender Female Age 74 year(s) Race Room Number 2015 Corporate ID [id number] # Patient Acct [id number] # MR # [id number] [employer] Celena Juarez RVT, RDMS Interpreting Jamison Galo [...] - The average kidney length is 10.75 cm.[facility]- [place], KYXR CHEST PORTABLEon [id number] CHEST PORTABLEEXAMINATION: ONE XRAY VIEW OF THE [...] Signed by: Argentina Guzmán MD 10/11/19 Final resultNormalFayette County Memorial HospitalBasic Metab w/rfx MGon 10-11-2019(cont.)NormalFayette County Memorial HospitalComment on above:Result Comment: Average GFR for 70 or more years old: 75 mL/min/1.73sq m Chronic Kidney Disease: <60 mL/min/1.73sq m Kidney failure: <15 mL/min/1.73sq m eGFR calculated using average adult body mass. Additional eGFR calculator available at: http://www.Kazeon.Mobile Event Guide/multiple_crcl_2012.htmPerformed By: #### CDP, CP, LIP, TROPI, LIPRF, GLYHGB #### [facility] [address] [place] [address] Mottler Operator: Brandon Anaya MDAnion gap [Moles/Vol]15 mmol/LNormal9-F[facility] County Memorial HospitalComment on above:Performed By: #### CDP, CP, LIP, TROPI, LIPRF, GLYHGB #### [facility] [address] [place] [address] Mottler Operator: Brandon Anaya MDCalcium [Mass/Vol]9.2 mg/dLNormal8.6-10.4F[facility] Memorial HospitalComment on above:Performed By: #### CDP, CP, LIP, TROPI, LIPRF, GLYHGB #### [facility] [address] [place] [address] 36820 Mottler Operator: NEHAL Mcmanushloride [Moles/Vol]96 mmol/NFxt30-494LbuyoFayette County Memorial HospitalComment on above:Performed By: #### CDP, CP, LIP, TROPI, LIPRF, GLYHGB #### [place] [address] Mottler Operator: Brandon Anaya MDCO2 [Moles/Vol]24 mmol/FLkpyea24-19OywpkFayette County Memorial HospitalComment on above:Performed By: #### CDP, CP, LIP, TROPI, LIPRF, GLYHGB #### [place] [address] Mottler Operator: NEHAL Mcmanusreatinine [Mass/Vol]0.55 mg/dLNormal0.50-0.90 [facility] HospitalComment on above:Performed By: #### CDP, CP, LIP, TROPI, LIPRF, GLYHGB #### [place] [address] Mottler Operator: Brandon Anaya MDGFR, Amer>60Normal>60F[facility] Memorial HospitalComment on above:Performed By: #### CDP, CP, LIP, TROPI, LIPRF, GLYHGB #### [place] [address] Mottler Operator: Brandon Anaya MDGFR,non Amer>60Normal>60[facility] HospitalComment on above:Performed By: #### CDP, CP, LIP, TROPI, LIPRF, GLYHGB #### [address] [address] Mottler Operator: Brandon Anaya MDGlucose [Mass/Vol]146 mg/eRQuxw49-59SzqhgMercy Medical CenterComment on above:Performed By: #### CDP, CP, LIP, TROPI, LIPRF, GLYHGB #### [facility] [address] [place] [address] Mottler Operator: BLADIMIR Mcmanusotassium [Moles/Vol]3.6 mmol/LLow3.7-5.3MMercy Medical CenterComment on above:Performed By: #### CDP, CP, LIP, TROPI, LIPRF, GLYHGB #### [facility] [address] [place] [address]99 Mottler Operator: FABIANA Mcmanusodium [Moles/Vol]135 mmol/TNlvgvt849-459NvteiFayette County Memorial HospitalComment on above:Performed By: #### CDP, CP, LIP, TROPI, LIPRF, GLYHGB #### [address] [address] Mottler Operator: Rebecca Mcmanus nitrogen [Mass/Vol]13 mg/dLNormal8-23F[facility] HospitalComment on above:Performed By: #### CDP, CP, LIP, TROPI, LIPRF, GLYHGB #### [address] [address] Mottler Operator: RADHA Mcmanus/CRE RatioNOT REPORTEDNormal9-20[facility] HospitalComment on above:Performed By: #### CDP, CP, LIP, TROPI, LIPRF, GLYHGB #### [facility] [address] [place] [address]14 Mottler Operator: FABIANA Mcmanustaging:NOT REPORTEDNormalFayette County Memorial HospitalComment on above:Performed By: #### CDP, CP, LIP, TROPI, LIPRF, GLYHGB #### [facility] [address] [place] [address] Mottler Operator: Josh Mcmanus Metabolic Panel w/ Reflex to MGon [id number] gap [Moles/Vol]15 mmol/L9 - 17 mmol/LMAdena Regional Medical Center- [place], KYBun/Cre RatioNOT REPORTEDMerSumma Health, KYCalcium [Mass/Vol]9.2 mg/dL8.6 - 10.4 mg/dLUniversity Hospitals Ely[facility], KYChloride [Moles/Vol]96 mmol/LLow98 - 107 mmol/LMPremier Health Miami [facility] [place], KYCO2 [Moles/Vol]24 mmol/L20 - 31 mmol/LMBrown Memorial Hospital, [place] Creatinine [Mass/Vol]0.55 mg/dL0.5 - 0.9 mg/dLUniversity Hospitals Elyria [facility] Center, KYGFR >60>60 mL/minUniversity Hospitals Elyria Medical Center, KYGFR Non->60>60 mL/min [facility], KYGFR/1.73 sq M predicted among non-blacks MDRD (S/P/Bld) [Vol rate/Area]NOT REPORTEDUniversity Hospitals Elyria Medical Center, KYGFR/1.73 sq M predicted among non- blacks MDRD (S/P/Bld) [Vol rate/Area][facility], KYComment on above: Average GFR for 70 or more years old: 75 mL/min/1.73sq m Chronic Kidney Disease: <60 mL/min/1.73sq m Kidney failure: <15 mL/min/1.73sq m eGFR calculated using average adult body mass. Additional eGFR calculator available at: http://www.Best Before Media/multiple_crcl_2012.htm Glucose [Mass/Vol]146 mg/yMHgkx96 - 99 mg/dLUniversity Hospitals Elyria [facility] Center, KYInterpretation and review of laboratory resultsAbnormalUniversity Hospitals Elyria Medical Center, KYPotassium [Moles/Vol]3.6 mmol/LLow3.7 - 5.3 mmol/LMBrown Memorial Hospital, KYSodium [Moles/Vol] 135 mmol/L135 - 144 mmol/[facility], KYUrea nitrogen [Mass/Vol]13 mg/dL8 - 23 mg/dLUniversity Hospitals Elyria Medical Center, KYCBC auto differentialon [id number] (Bld) [#/Vol]0.03 10*3/uLCleveland Clinic South Pointe [facility]- [place], KYBasophils/100 WBC (Bld)0 %0 - 2 %[facility], KYDifferential TypeNOT REPORTEDUniversity Hospitals Elyria [facility], KYEosinophils (Bld) [#/Vol]10*3/[facility] [place], KYEosinophils/100 WBC (Bld)0 %Low1 - 4 %[facility], KYErythrocyte distribution width (RBC) [Ratio]14.3 %11.8 - 14.4 % [facility], KYHematocrit (Bld) [Volume fraction]43.6 %36.3 - 47.1 %[facility], KYHemoglobin (Bld) [Mass/Vol]13.7 g/dL11.9 - 15.1 g/dLUniversity Hospitals Elyria Medical Center, KYImmature granulocytes (Bld) [#/Vol]1 %Rjqc8QawpbUniversity Hospitals Elyria Medical Center, KYImmature granulocytes (Bld) [#/Vol]0.07 10*3/[facility], KYInterpretation and review of laboratory resultsAbnormalUniversity Hospitals E[facility], KYLymphocytes (Bld) [#/Vol]0.92 10*3/uLWilson Health, KYLymphocytes/100 WBC (Bld)14 %Low24 - 43 %[facility], KYMCH (RBC) [Entitic mass]29.1 pg25.2 - 33.5 pgUniversity Hospitals Elyria Medical Center, KYMCHC (RBC) [Mass/Vol]31.4 g/dL28.4 - 34.8 g/dLUniversity Hospitals Elyria Medical Center, [place] MCV (RBC) [Entitic vol]92.6 fL82.6 - 102.9 fLUniversity Hospitals Elyria Medical Center, KYMonocytes (Bld) [#/Vol]0.07 10*3/uLWilson Health, KYMonocytes/100 WBC (Bld)1 %Low3 - 12 % [facility], KYPlatelet mean volume (Bld) [Entitic vol]10.6 fL8.1 - 13.5 fL [facility], KYPlatelets (Bld) [#/Vol]NOT REPORTEDHudson, [place] Platelets (Bld) [#/Vol]196 10*3/uLHudson, KYRBC (Bld) [#/Vol]4.71 10*6/uL3.95 - 5.11 m/[facility] morphology finding Nom (Bld)NOT REPORTEDLakeHealth TriPoint Medical Centergmented neutrophils/100 WBC (Bld)84 %High36 - 65 % [place], KYSegs Absolute5.67[place], KYWBC (Bld) [#/Vol]0.0 10*3/uL0.0 per 100 WBCHudson, KYWBC (Bld) [#/Vol]6.8 10*3/uLUniversity Hospitals Elyria Medical Center, [facility] MorphologyNOT REPORTEDSycamore Medical Center with Diffon [id number]. Basophil0.03 k/uLNormal0.00-0.20[facility] Comment on above:Performed By: #### CDP, CP, LIP, TROPI, LIPRF, GLYHGB #### [facility] [address] [place] [address] Mottler Operator: Marie Mcmanus.Imm.Granulocyte0.07 k/uLNormal0.00-0.30F[facility] HospitalComment on above:Performed By: #### CDP, CP, LIP, TROPI, LIPRF, GLYHGB #### [facility]SH[facility] [address] [place] [address] Mottler Operator: Marie Mcmanus.Neutrophil (Seg)5.67 k/uLNormal1.50-8.10 [facility] HospitalComment on above:Performed By: #### CDP, CP, LIP, TROPI, LIPRF, GLYHGB #### [facility] [address] [place] [address] Mottler Operator: Radha Mcmanussophils/100 WBC (Bld)0 %Normal0-2MMercy Medical CenterComment on above:Performed By: #### CDP, CP, LIP, TROPI, LIPRF, GLYHGB #### [place] [address] Mottler Operator: Brandon Anaya MDEosinophils (Bld) [#/Vol]10*3/uLNormal0.00-0.44 [facility] HospitalComment on above:Performed By: #### CDP, CP, LIP, TROPI, LIPRF, GLYHGB #### [place] [address] Mottler Operator: MAU Mcmanusosinophils/100 WBC (Bld)0 %Low1-4F[facility] County Memorial HospitalComment on above:Performed By: #### CDP, CP, LIP, TROPI, LIPRF, GLYHGB #### [place] [address] Mottler Operator: Brandon Anaya MDErythrocyte distribution width (RBC) [Ratio]14.3 %Qremgt59.8-14.4F[facility] County Memorial HospitalComment on above:Performed By: #### CDP, CP, LIP, TROPI, LIPRF, GLYHGB #### [place] [address] Mottler Operator: Brandon Anaya MDHematocrit (Bld) [Volume fraction]43.6 %Normal 36.3-47.1MMercy Medical CenterComment on above:Performed By: #### CDP, CP, LIP, TROPI, LIPRF, GLYHGB #### [place] [address] Mottler Operator: Brandon Anaya MDHemoglobin (Bld) [Mass/Vol]13.7 g/dLNormal 11.9-15.1MMercy Medical CenterComment on above:Performed By: #### CDP, CP, LIP, TROPI, LIPRF, GLYHGB #### [facility] [address] [place] [address] Mottler Operator: Brandon Anaya MDImmature granulocytes (Bld) [#/Vol]1 %Rauy3JosofFayette County Memorial HospitalComment on above:Performed By: #### CDP, CP, LIP, TROPI, LIPRF, GLYHGB #### [facility] [address] [place] [address] Mottler Operator: Brandon Anaya MDLymphocytes (Bld) [#/Vol]0.92 10*3/uLLow 1.10-3.70F[facility] County [facility] HospitalComment on above:Performed By: #### CDP, CP, LIP, TROPI, LIPRF, GLYHGB #### [facility] [address] [place] [address] Mottler Operator: Luiza Mcmanushocytes/100 WBC (Bld)14 %Ebl28-62AfewpFayette County Memorial HospitalComment on above:Performed By: #### CDP, CP, LIP, TROPI, LIPRF, GLYHGB #### [facility] [address] [place] [address] Mottler Operator: LIZZY McmanusCH (RBC) [Entitic mass]29.1 leQogruu97.2-33.5 [facility] HospitalComment on above:Performed By: #### CDP, CP, LIP, TROPI, LIPRF, GLYHGB #### [facility] [address] [place] [address] Mottler Operator: LIZZY McmanusCHC (RBC) [Mass/Vol]31.4 g/yIQhgqrn19.4-34.8 [facility] HospitalComment on above:Performed By: #### CDP, CP, LIP, TROPI, LIPRF, GLYHGB #### [facility] [address] [place] [address] Mottler Operator: LIZZY McmanusCV (RBC) [Entitic vol]92.6 zNCdnxpo89.6-102.9 [facility] HospitalComment on above:Performed By: #### CDP, CP, LIP, TROPI, LIPRF, GLYHGB #### [address] [address] Mottler Operator: LIZZY Mcmanusonocytes (Bld) [#/Vol]0.07 10*3/uLLow0.10-1.20 [facility] HospitalComment on above:Performed By: #### CDP, CP, LIP, TROPI, LIPRF, GLYHGB #### [place] [address] Mottler Operator: LIZZY Mcmanusonocytes/100 WBC (Bld)1 %Low3-12[facility] HospitalComment on above:Performed By: #### CDP, CP, LIP, TROPI, LIPRF, GLYHGB #### [place] [address] Mottler Operator: Modesta Mcmanusophil (Seg)84 %Bhaz78-49ZbwmaFayette County Memorial HospitalComment on above:Performed By: #### CDP, CP, LIP, TROPI, LIPRF, GLYHGB #### [place] [address] Mottler Operator: Brandon Anaya MDNRBC Automated0.0 per 100 WBCNormal0.0F[facility] County Memorial HospitalComment on above:Performed By: #### CDP, CP, LIP, TROPI, LIPRF, GLYHGB #### [address] [address] Mottler Operator: BLADIMIR Mcmanuslatelet mean volume (Bld) [Entitic vol]10.6 fL Normal8.1-13.5F[facility] County Memorial HospitalComment on above:Performed By: #### CDP, CP, LIP, TROPI, LIPRF, GLYHGB #### [facility] [address] [place] [address] Mottler Operator: Bon Mcmanus ([facility]) [#/Vol]196 10*3/uQBktbvo912-837 [facility] Memorial HospitalComment on above:Performed By: #### CDP, CP, LIP, TROPI, LIPRF, GLYHGB #### [facility] [address] [place] [address] Mottler Operator: DREW Mcmanus ([facility]) [#/Vol]4.71 10*6/uLNormal3.95-5.11 [facility] HospitalComment on above:Performed By: #### CDP, CP, LIP, TROPI, LIPRF, GLYHGB #### [address] [address] Mottler Operator: LUCIAN Mcmanus ([facility]) [#/Vol]6.8 10*3/uLNormal3.5-11.3MMercy Medical CenterComment on above:Performed By: #### CDP, CP, LIP, TROPI, LIPRF, GLYHGB #### [facility] [address] [place] [address] Mottler Operator: Gustabo Mcmanus PerformedNOT REPORTEDNormalFayette County Memorial HospitalComment on above:Performed By: #### CDP, CP, LIP, TROPI, LIPRF, GLYHGB #### [facility] [address] [place] [address] Mottler Operator: Bon Mcmanus ([facility]) [#/Vol]NOT REPORTEDrmalFayette County Memorial HospitalComment on above:Performed By: #### CDP, CP, LIP, TROPI, LIPRF, GLYHGB #### [facility] [address] [place] [phone] Mottler Operator: RICHA Mcmanus morphology finding Nom (Bld)NOT REPORTED NormalFayette County Memorial HospitalComment on above:Performed By: #### CDP, CP, LIP, TROPI, LIPRF, GLYHGB #### [facility] [address] [place] [address] Mottler Operator: LUCIAN Mcmanus MorphologyNOT REPORTEDNormalFayette County Memorial HospitalComment on above:Performed By: #### CDP, CP, LIP, TROPI, LIPRF, GLYHGB #### [facility] [address] [place], [place] [phone] Mottler Operator: WENDY Mcmanus BRAIN W WO CONTRASTon [id number] BRAIN W WO CONTRASTEXAMINATION: MRI OF THE [...] Signed by: Chaitanya Sawyer MD 10/11/19 Final resultNormNewark Hospital, [facility] Incoming Radiant Results From [facility] - 10/11/2019 3:07 PM EDT EXAMINATION: MRI [...] Small meningioma over the right frontal lobe. [place], [place]Volume loss with chronic white matter microvascular ischemic change. Small meningioma over the right frontal lobe.[facility], [place] EXAMINATION: MRI OF THE BRAIN WITHOUT AND [...] ORBITS: The visualized portion of the orbits demo nstrate no acute abnormality. SINUSES: The visualized paranasal sinuses and mastoid air cells are well aerated. BONES/SOFT TISSUES: The bone marrow signal intensity appears normal. The soft tissues demonstrate no acute abnormality. [facility] Medical CenterCLARAPOC Glucose Fingerstickon [id number] [Mass/Vol]121 mg/sUUsja40 - 105 mg/dLUniversity Hospitals Ely[facility], KYInterpretation and review of laboratory resultsAbnormDiley Ridge Medical Center, CLARAGlucose [Mass/Vol]171 mg/dPGqyd47 - 105 mg/dLUniversity Hospitals Elyria [facility] Center, KYInterpretation and review of laboratory results AbnormalUniversity Hospitals E[facility] Center, OHGlucose [Mass/Vol]127 mg/xAAhnn85 - 105 mg/dLUniversity Hospitals E[facility], KYInterpretation and review of laboratory resultsAbnoThe Surgical Hospital at Southwoods, OHGlucose [Mass/Vol]145 mg/jAGuox22 - 105 mg/dLUniversity Hospitals [facility], [place] Interpretation and review of laboratory resultsAbnoThe Surgical Hospital at Southwoods, CLARAXR CHEST PORTABLEon [id number]: ONE XRAY VIEW OF THE CHEST 10/11/2019 10:45 pm COMPARISON: 06/27/2017 HISTORY: ORDERINGSYSTEM PROVIDED HISTORY: evaluate TECHNOLOGIST PROVIDED HISTORY: evaluate Reason for Exam: Upright p ortable Acuity: Unknown Type of Exam: Unknown FINDINGS: Cardiomediastinal silhouette is unchanged in size. Aortic atherosclerosis. No pulmonary consolidation, pleural effusion, or pneumothorax. No acute osseous abnormality. [facility]ly[facility] Medical CenterRadha Mhpn Incoming Radiant Results From [facility] - 10/11/2019 11:49 PM EDT EXAMINATION: ONE XRAY VIEW OF THE CHEST 10/11/2019 10:45 pm COMPARISON: 06/27/2017 HISTORY: ORDERING SYSTEM PROVIDED HISTORY: evaluate TECHNOLOGIST PROVIDED HISTORY: evaluate Reason for Exam: Upright portable Acuity: Unknown Type of Exam: Unknown FINDINGS: Cardiomediastinal silhouette is unchanged in size. Aortic atherosclerosis. No pulmonary consolidation, pleural effusion, or pneumothorax. No acute osseous abnormality. IMPRESSION: No acute cardiopulmonary abnormality. [facility] Medical CenterJIMo acute cardiopulmonary abnormality.[facility] Medical CenterCLARA Basic Metab w/rfx MGon 10-10-2019(cont.)[facility] Comment on above:Result Comment: Average GFR for 70 or more years old: 75 mL/min/1.73sq m Chronic Kidney Disease: <60 mL/min/1.73sq m Kidney failure: <15 mL/min/1.73sq m eGFR calculated using average adult body mass. Additional eGFR calculator available at: http://www.Kazeon.Mobile Event Guide/multiple_crcl_2012.htmPerformed By: #### CDP, CP, LIP, TROPI, LIPRF, GLYHGB #### [employer] [address] [place] [address] Mottler Operator: Brandon Anaya MDAnion gap [Moles/Vol]10 mmol/LNormal9-17F[facility] County Memorial HospitalComment on above:Performed By: #### CDP, CP, LIP, TROPI, LIPRF, GLYHGB #### [facility] [address] [place] [address] Mottler Operator: NEHAL Mcmanusalcium [Mass/Vol]9.0 mg/dLNormal8.6-10.4F[facility] Memorial HospitalComment on above:Performed By: #### CDP, CP, LIP, TROPI, LIPRF, GLYHGB #### [facility] [address] [place] [address] Mottler Operator: Brandon Anaya MDChloride [Moles/Vol]97 mmol/DYle98-421NorqgFayette County Memorial HospitalComment on above:Performed By: #### CDP, CP, LIP, TROPI, LIPRF, GLYHGB #### [facility] [address] [place] [address] Mottler Operator: Brandon Anaya MDCO2 [Moles/Vol]25 mmol/DFklbue69-51NdcimFayette County Memorial HospitalComment on above:Performed By: #### CDP, CP, LIP, TROPI, LIPRF, GLYHGB #### [employer] [address] [place] [address] Mottler Operator: NEHAL Mcmanusreatinine [Mass/Vol]0.50 mg/dLNormal0.50-0.90 [facility] HospitalComment on above:Performed By: #### CDP, CP, LIP, TROPI, LIPRF, GLYHGB #### [address] [address] Mottler Operator: Brandon Anaya MDGFR, Amer>60Normal>60[facility] Medical CenterComment on above:Performed By: #### CDP, CP, LIP, TROPI, LIPRF, GLYHGB #### [address] [address] Mottler Operator: CAROLYN Mcmanus,non Amer>60Normal>60MerWhittier Hospital Medical CenterComment on above:Performed By: #### CDP, CP, LIP, TROPI, LIPRF, GLYHGB #### [place] [address] Mottler Operator: Brandon Anaya MDGlucose [Mass/Vol]123 mg/fEYidx74-49RfecrMercy Medical CenterComment on above:Performed By: #### CDP, CP, LIP, TROPI, LIPRF, GLYHGB #### [address] [address] Mottler Operator: BLADIMIR Mcmanusotassium [Moles/Vol]3.5 mmol/LLow3.7-5.3Mcleveland clinic hillcrest hospitaly Doctor'[facility] Hospital Montclair Medical CenterComment on above:Performed By: #### CDP, CP, LIP, TROPI, LIPRF, GLYHGB #### [address] [address] Mottler Operator: FABIANA Mcmanusodium [Moles/Vol]132 mmol/VXqn603-425MhfuhFayette County Memorial HospitalComment on above:Performed By: #### CDP, CP, LIP, TROPI, LIPRF, GLYHGB #### [address] [place] [place] [address] Mottler Operator: Brandon Anaya MDUrea nitrogen [Mass/Vol]14 mg/dLNormal8-23F[facility] Memorial HospitalComment on above:Performed By: #### CDP, CP, LIP, TROPI, LIPRF, GLYHGB #### [facility] [address] [place] [address] Mottler Operator: Brandon Anaya MDBUN/CRE RatioNOT REPORTEDNormal9-20[facility] HospitalComment on above:Performed By: #### CDP, CP, LIP, TROPI, LIPRF, GLYHGB #### [facility] [address] [place] [address] Mottler Operator: FABIANA Mcmanustaging:NOT REPORTEDNormalFayette County Memorial HospitalComment on above:Performed By: #### CDP, CP, LIP, TROPI, LIPRF, GLYHGB #### [facility] [address] [place] [address] Mottler Operator: Josh Mcmanus Metabolic Panel w/ Reflex to MGon [id number] gap [Moles/Vol]10 mmol/L9 - 17 mmol/LMercy Health- [place], KYBun/Cre RatioNOT REPORTEDMercy Health- [place], KYCalcium [Mass/Vol]9.0 mg/dL8.6 - 10.4 mg/dLMercy Health- [place], KYChloride [Moles/Vol]97 mmol/LLow98 - 107 mmol/LMercy Health- [place], KYCO2 [Moles/Vol]25 mmol/L20 - 31 mmol/LMercy Health- [place], [place] Creatinine [Mass/Vol]0.5 mg/dL0.5 - 0.9 mg/dLMercy Health- [place], KYGFR >60>60 mL/minMercy Health- [place], KYGFR Non->60>60 mL/min [facility]- [place], KYGFR/1.73 sq M predicted among non-blacks MDRD (S/P/Bld) [Vol rate/Area][facility], KYComment on above:Average GFR for 70 or more years old: 75 mL/min/1.73sq m Chronic Kidney Disease: <60 mL/min/1.73sq m Kidney failure: <15 mL/min/1.73sq m eGFR calculated using average adult body mass. Additional eGFR calculator available at: http://www.Best Before Media/multiple_crcl_2012.htm GFR/1.73 sq M predicted among non-blacks MDRD (S/P/Bld) [Vol rate/Area]NOT REPORTEDUniversity Hospitals [facility], KYGlucose [Mass/Vol]123 mg/lDFyep54 - 99 mg/dLUniversity Hospitals Ely[facility], KYInterpretation and review of laboratory resultsAbnormDiley Ridge Medical Center, KYPotassium [Moles/Vol]3.5 mmol/LLow3.7 - 5.3 mmol/LMBrown Memorial Hospital, KYSodium [Moles/Vol]132 mmol/YHum066 - 144 mmol/[facility], KYUrea nitrogen [Mass/Vol]14 mg/dL8 - 23 mg/dLUniversity Hospitals Elyria [facility] Center, KYC-REACTIVE PROTEINon [id number] [Mass/Vol]6.3 mg/LHigh0 - 5 mg/LMBrown Memorial Hospital, KYInterpretation and review of laboratory resultsAbnormDiley Ridge Medical Center, KYC-Reactive Protein on [id number] [Mass/Vol]6.3 mg/LHigh0.0-5.0[facility] Comment on above:Performed By: #### CDP, CP, LIP, TROPI, LIPRF, GLYHGB #### [facility] [address] [place] [address] Mottler Operator: Brandon Anaya [facility] auto differentialon [id number] (Bld) [#/Vol]0.06 10*3/uLUniversity Hospitals Elyria Medical Center, KYBasophils/100 WBC (Bld)1 %0 - 2 % [facility], KYDifferential TypeNOT REPORTEDMercy Health- [place], KYEosinophils (Bld) [#/Vol]0.07 10*3/uLSelect Medical Specialty [facility] [place]- [place], KYEosinophils/100 WBC (Bld)1 %1 - 4 %[facility]- [place], KYErythrocyte distribution width (RBC) [Ratio]14.5 %High11.8 - 14.4 %[facility]- [place], KYHematocrit (Bld) [Volume fraction]42.7 %36.3 - 47.1 %[facility]- [place], KYHemoglobin (Bld) [Mass/Vol]13.5 g/dL11.9 - 15.1 g/dLSelect Medical Specialty Hospital - [place]- [place], KYImmature granulocytes (Bld) [#/Vol]0.05 10*3/uLSelect Medical Specialty Hospital - [place]- [place], KYImmature granulocytes (Bld) [#/Vol]1 %Oczw5UqoaySelect Medical Specialty Hospital [facility] [place]- [place], KYInterpretation and review of laboratory resultsAbnormalSelect Medical Specialty Hospital [facility] [place]- [place], KYLymphocytes (Bld) [#/Vol]1.05 10*3/uLLowSelect Medical Specialty Hospital - [place]- [place], KYLymphocytes/100 WBC (Bld)14 %Low24 - 43 %[facility]- [place], KYMCH (RBC) [Entitic mass]29.8 pg25.2 - 33.5 pgSelect Medical Specialty Hospital [facility] [place]- [place], KYMCHC (RBC) [Mass/Vol]31.6 g/dL28.4 - 34.8 g/dLSelect Medical Specialty Hospital [facility] [place]- [place], [place] MCV (RBC) [Entitic vol]94.3 fL82.6 - 102.9 fLSelect Medical Specialty Hospital - [place]- [place], KYMonocytes (Bld) [#/Vol]0.65 10*3/uLSelect Medical Specialty Hospital [facility] [place]- [place], KYMonocytes/100 WBC (Bld)9 %3 - 12 %[facility]- [place], KYPlatelet mean volume (Bld) [Entitic vol]10.9 fL8.1 - 13.5 fLSelect Medical Specialty Hospital - [place]- [place], KYPlatelets (Bld) [#/Vol]170 10*3/uLSelect Medical Specialty Hospital [facility] [place]- [place], KYPlatelets (Bld) [#/Vol]NOT REPORTEDSelect Medical Specialty Hospital [facility] [place]- [place], KYRBC (Bld) [#/Vol]4.53 10*6/uL3.95 - 5.11 m/[place], KYRB morphology finding Nom (Bld)ANISOCYTOSIS PRESENTUniversity Hospitals Elyria Medical Center, OHSegmented neutrophils/100 WBC (Bld)74 %High36 - 65 % [place], KYSegs Absolute5.55[place], KYWBC (Bld) [#/Vol]0.0 10*3/uL0.0 per 100 WBCHudson, KYWBC (Bld) [#/Vol]7.4 10*3/uLUniversity Hospitals Elyria Medical Center, OHW MorphologyNOT REPORTEDSycamore Medical Center with Diffon [id number]. Basophil0.06 k/uLNormal0.00-0.20[facility] Comment on above:Performed By: #### CDP, CP, LIP, TROPI, LIPRF, GLYHGB #### [place] [address] Mottler Operator: Marie Mcmanus.Imm.Granulocyte0.05 k/uLNormal0.00-0.30[facility] HospitalComment on above:Performed By: #### CDP, CP, LIP, TROPI, LIPRF, GLYHGB #### [facility] [address] [place] [address] Mottler Operator: Marie Mcmanus.Neutrophil (Seg)5.55 k/uLNormal1.50-8.10 [facility] HospitalComment on above:Performed By: #### CDP, CP, LIP, TROPI, LIPRF, GLYHGB #### [facility] [address] [place] [address] Mottler Operator: Radha Mcmanussophils/100 WBC (Bld)1 %Normal0-2MMercy Medical CenterComment on above:Performed By: #### CDP, CP, LIP, TROPI, LIPRF, GLYHGB #### [facility] [address] [place] [address] Mottler Operator: Brandon Anaya MDEosinophils (Bld) [#/Vol]0.07 10*3/uLNormal 0.00-0.44[facility] HospitalComment on above:Performed By: #### CDP, CP, LIP, TROPI, LIPRF, GLYHGB #### [facility] [address] [place] [address] Mottler Operator: MAU Mcmanusosinophils/100 WBC (Bld)1 %Normal1-4[facility] HospitalComment on above:Performed By: #### CDP, CP, LIP, TROPI, LIPRF, GLYHGB #### [facility] [address] [place] [address] Mottler Operator: Brandon Anaya MDErythrocyte distribution width (RBC) [Ratio]14.5 %High11.8-14.4[facility] HospitalComment on above:Performed By: #### CDP, CP, LIP, TROPI, LIPRF, GLYHGB #### [facility] [address] [place] [address] Mottler Operator: Brandon Anaya MDHematocrit (Bld) [Volume fraction]42.7 %Normal 36.3-47.1MMercy Medical CenterComment on above:Performed By: #### CDP, CP, LIP, TROPI, LIPRF, GLYHGB #### [facility] [address] [place] [address] Mottler Operator: Brandon Anaya MDHemoglobin (Bld) [Mass/Vol]13.5 g/dLNormal 11.9-15.1MMercy Medical CenterComment on above:Performed By: #### CDP, CP, LIP, TROPI, LIPRF, GLYHGB #### [facility] [address] [place] [address] Mottler Operator: Brandon Anaya MDImmature granulocytes (Bld) [#/Vol]1 %Pvrz0PykfaFayette County Memorial HospitalComment on above:Performed By: #### CDP, CP, LIP, TROPI, LIPRF, GLYHGB #### [facility] [address] [place] [address] Mottler Operator: Brandon Anaya MDLymphocytes (Bld) [#/Vol]1.05 10*3/uLLow 1.10-3.70[facility] HospitalComment on above:Performed By: #### CDP, CP, LIP, TROPI, LIPRF, GLYHGB #### [facility] [address] [place] [address] Mottler Operator: Luiza Mcmanushocytes/100 WBC (Bld)14 %Plw92-60PsamrFayette County Memorial HospitalComment on above:Performed By: #### CDP, CP, LIP, TROPI, LIPRF, GLYHGB #### [facility] [address] [place] [address] Mottler Operator: STEFFANIE Mcmanus (RBC) [Entitic mass]29.8 rsLdnguk96.2-33.5 [facility] HospitalComment on above:Performed By: #### CDP, CP, LIP, TROPI, LIPRF, GLYHGB #### [facility] [address] [place] [address] Mottler Operator: LIZZY McmanusCHC (RBC) [Mass/Vol]31.6 g/sNSwshpa07.4-34.8 [facility] HospitalComment on above:Performed By: #### CDP, CP, LIP, TROPI, LIPRF, GLYHGB #### [facility] [address] [place] [address] Mottler Operator: LIZZY McmanusCV (RBC) [Entitic vol]94.3 qFRbwaej43.6-102.9 [facility] HospitalComment on above:Performed By: #### CDP, CP, LIP, TROPI, LIPRF, GLYHGB #### [facility] [address] [place] [address] Mottler Operator: LIZZY Mcmanusonocytes (Bld) [#/Vol]0.65 10*3/uLNormal 0.10-1.20[facility] HospitalComment on above:Performed By: #### CDP, CP, LIP, TROPI, LIPRF, GLYHGB #### [facility] [address] [place] [address] Mottler Operator: LIZZY Mcmanusonocytes/100 WBC (Bld)9 %Normal3-12[facility] HospitalComment on above:Performed By: #### CDP, CP, LIP, TROPI, LIPRF, GLYHGB #### [address] [address] Mottler Operator: Modesta Mcmanusophil (Seg)74 %Hdrg47-96CthkuFayette County Memorial HospitalComment on above:Performed By: #### CDP, CP, LIP, TROPI, LIPRF, GLYHGB #### [facility] [address] [place] [address] Mottler Operator: Brandon Anaya MDNRBC Automated0.0 per 100 WBCNormal0.0[facility] HospitalComment on above:Performed By: #### CDP, CP, LIP, TROPI, LIPRF, GLYHGB #### [facility] [address] [place] [address] Mottler Operator: BLADIMIR Mcmanuslatelet mean volume (Bld) [Entitic vol]10.9 fL Normal8.1-13.5[facility] HospitalComment on above:Performed By: #### CDP, CP, LIP, TROPI, LIPRF, GLYHGB #### [facility] [address] [place] [address] Mottler Operator: Bon Mcmanus (Bld) [#/Vol]170 10*3/sWTykgek428-940 [facility] HospitalComment on above:Performed By: #### CDP, CP, LIP, TROPI, LIPRF, GLYHGB #### [address] [address] Mottler Operator: RICHA Mcmanus (Bld) [#/Vol]4.53 10*6/uLNormal3.95-5.11 [facility] HospitalComment on above:Performed By: #### CDP, CP, LIP, TROPI, LIPRF, GLYHGB #### [address] [address] Mottler Operator: RICHA Mcmanus morphology finding Nom (Bld)ANISOCYTOSIS PRESENTNormalFayette County Memorial HospitalComment on above:Performed By: #### CDP, CP, LIP, TROPI, LIPRF, GLYHGB #### [address] [address] Mottler Operator: LUCIAN Mcmanus (Bld) [#/Vol]7.4 10*3/uLNormal3.5-11.3MMercy Medical CenterComment on above:Performed By: #### CDP, CP, LIP, TROPI, LIPRF, GLYHGB #### [facility] [address] [place] [address] Mottler Operator: Gustabo Mcmanus Diff PerformedNOT REPORTEDNormalMckitrick Hospitalcy Doctor'S Hospital Montclair Medical CenterComment on above:Performed By: #### CDP, CP, LIP, TROPI, LIPRF, GLYHGB #### [facility] [address] [place] [address] Mottler Operator: Bon Mcmanus (Bld) [#/Vol]NOT REPORTEDNormalFayette County Memorial HospitalComment on above:Performed By: #### CDP, CP, LIP, TROPI, LIPRF, GLYHGB #### [facility] [address] [place], [place] [id number] Mottler Operator: Brandon Anaya MDW MorphologyNOT REPORTEDKindred Hospital DaytonComment on above:Performed By: #### CDP, CP, LIP, TROPI, LIPRF, GLYHGB #### [facility] [address] [place], [place] [id number] Mottler Operator: Brandon Anaya, MDCT HEAD WO CONTRASTon [id number] HEAD WO CONTRASTEXAMINATION: CT OF THE HEAD [...] Signed by: Naga Browning MD 10/10/19 Final [facility]1. No acute intracranial abnormality. 2. Mild chronic white matter microvascular ischemic changes.[facility], KYEXAMINATION: CT OF THE HEAD WITHOUT CONTRAST [...] abnormality of the visualized skull or soft tissues.[place], Radha, [place] Incoming Radiant Results From [facility] - 10/10/2019 5:31 PM EDT EXAMINATION: CT [...] Mild chronic white matter microvascular ischemic changes. [place], KYCTA HEAD NECK W CONTRASTon [id number] HEAD NECK W CONTRASTEXAMINATION: CTA OF THE [...] Initial FINDINGS: CTA NECK: AORTIC ARCH/ARCH VESSELS: Cszr-dg-narngjcv atherosclerotic plaque at the arch arch and [...] Signed by: Naga Browning MD 10/10/19 Final resultNormalMercy Doctor'S Hospital Montclair Medical CenterEXAMINATION: CTA OF THE HEAD AND NECK WITH [...] Initial FINDINGS: CTA NECK: AORTIC ARCH/ARCH VESSELS: Qkjz-uh-uchpzclr atherosclerotic plaque at the arch arch and [...] fluid collection. The salmeron-white differentiation is maintained. [facility], [place]1. No acute arterial abnormality or hemodynamically significant arterial stenosis in the head or neck. 2. No intracranial aneurysm. [facility], [place], [place] Incoming Radiant Results From Bookeen/Adioso - 10/10/2019 5:36 PM EDT EXAMINATION: CTA [...] Initial FINDINGS: CTA NECK: AORTIC ARCH/ARCH VESSELS: Dmug-or-pynoaqpb atherosclerotic plaque at the arch arch and [...] head or neck. 2. No intracranial aneurysm. [facility]osticsMISSOU[facility], KYHemoglobin A1Con [id number] (Bld) [Mass fraction]111 mg/dLNoTrinity Health System West CampusComment on above:Result Comment: The ADA and AACC recommend providing the estimated average glucose result to permit better patient understanding of their HBA1c result.Performed By: #### CDP, CP, LIP, TROPI, LIPRF, GLYHGB #### [employer] [facility] [place] [address] Mottler Operator: Brandon Anaya MDHbA1c (Bld) [Mass fraction]5.5 %Normal4.0-6.0 [facility] HospitalComment on above:Performed By: #### CDP, CP, LIP, TROPI, LIPRF, GLYHGB #### [facility] [place], [place] [id number] Mottler Operator: Brandon Anaya MDGlucose [Mass/Vol]111 mg/dLMemorial Hospital [place] Comment on above:The ADA and AACC recommend providing the estimated average glucose result to permit better patient understanding of their HBA1c result. HbA1c (Bld) [Mass fraction]5.5 %4 - 6 %[place], KYLACTIC ACID, WHOLE BLOODon [id number] Acid, Whole Blood1.0 mmol/L0.7 - 2.1 mmol/LMMercy Health [facility]sburg Hospital KYLactic Acid,Whole Blon [id number] Acid,Whole Bl1.0 mmol/L Normal0.7-2.1MMercy Medical CenterComment on above:Performed By: #### KRIS CP, LIP, TROPI, LIPRF, GLYHGB #### [facility] [employer] [address] [place] [address] [id number] Mottler Operator: Yane Mcmanusgnesiumon [id number] [Mass/Vol]2.1 mg/dLNormal1.6-2.6MMercy Medical CenterComment on above:Performed By: #### CDP, CP, LIP, TROPI, LIPRF, GLYHGB #### [facility] [address] [place] [address] [phone] Mottler Operator: Yane Mcmanusgnesium [Mass/Vol]2.1 mg/dL1.6 - 2.6 mg/dL [facility], KYOtheron . Subtle sclerosis subjacent to the L2 and L3 superior endplates is age-indeterminate and could represent trabecular condensation associated with acute or subacute endplate fractures. MRI of the lumbar spine is recommended for further evaluation. 2. No acute osseous abnormality of the sacrum or coccyx. 3. Osteopenia.[facility] Medical CenterRadha Mhpn Incoming Radiant Results From Mercatuse/LISNRs - 10/10/2019 8:19 PM EDT EXAMINATION: THREE [...] of the sacrum or coccyx. 3. Osteopenia. [facility] CenterCLARAEXAMINATION: THREE XRAY VIEWS OF THE SACRUM/COCCYX; THREE [...] in the urinary bladder. Atherosclerotic calcifications are present.[facility] Glucose Fingerstickon [id number] [Mass/Vol]159 mg/gMDjcx01 - 105 mg/dLUniversity Hospitals Ely[facility], [place] Interpretation and review of laboratory resultsAbnoDallas, [place] Glucose [Mass/Vol]186 mg/wYUazh32 - 105 mg/dLUniversity Hospitals Ely[facility], OHInterpretation and review of laboratory resultsAbnoDallas, KYGlucose [Mass/Vol] 135 mg/iQNgyz16 - 105 mg/dLUniversity Hospitals Ely[facility], KYInterpretation and review of laboratory resultsAbnoDallas, KYProcalcitoninon 10-10-2019 Procalcitonin0.15 ng/mLHigh<0.09[facility] HospitalComment on above:Result Comment: Suspected Sepsis: <0.50 [...] entered into the Change in Procalcitonin Calculator (www.cahqdy-bpz-hvntoqfqnk.com) to determine the patient's Mortality Risk Prognosis In healthy neonates, plasma Procalcitonin (PCT) concentrations increase gradually after , reaching peak values at about 24 hours of age then decrease to normal values below 0.5 ng/mL by 48-72 hours of age.Performed By: #### CDP, CP, LIP, TROPI, LIPRF, GLYHGB #### [employer] [address] [place] [address] Mottler Operator: Brandon Anaya MDInterpretation and review of laboratory results AbnormalHudson, KYProcalcitonin0.15 ng/mLHigh<0.09[facility], [place] Comment on above: Suspected Sepsis: <0.50 ng/mL [...] entered into the Change in Procalcitonin Calculator (www.dahcup-wxu-ogaygvblyr.Mobile Event Guide) to determine the patient's Mortality Risk Prognosis In healthy neonates, plasma Procalcitonin (PCT) concentrations increase gradually after , reaching peak values at about 24 hours of age then decrease to normal values below 0.5 ng/mL by 48-72 hours of age. Sedimentation Rateon [id number] Rate8 mmNormal0-30[facility] HospitalComment on above:Performed By: #### CDP, CP, LIP, TROPI, LIPRF, GLYHGB #### [employer] [address] [place] [address] Mottler Operator: Shay Mcmanus Rate8 mm0 - 30 mmL[facility] w/reflex to FT4on [id number] Qn1.05 m[IU]/LNormal0.30-5.00[facility] HospitalComment on above:Performed By: #### CDP, CP, LIP, TROPI, LIPRF, GLYHGB #### [facility] [place] [address] Mottler Operator: SUSAN Mcmanus with Reflexon [id number] Qn1.05 m[IU]/L [facility], KYXR LUMBAR SPINE (2-3 VIEWS)on [id number] LUMBAR SPINE (2-3 VIEWS)EXAMINATION: THREE XRAY VIEWS [...] Signed by: Naga Browning MD 10/10/19 Final resultNormalMerWhittier Hospital Medical CenterXR SACRUM COCCYX (MIN 2 VIEWS) on [id number] SACRUM COCCYX (MIN 2 VIEWS)EXAMINATION: THREE XRAY [...] Signed by: Naga Browning MD 10/10/19 Final resultNoTrinity Health System West CampusBeta Hydroxybutyrateon [id number] Hydroxybutyrate0.09 mmol/LNormal0.02-0.27[facility] HospitalComment on above:Performed By: #### ARI, #### [address] [place] [address] Mottler Operator: Brandon Anaya MDBeta-Hydroxybutyrateon 10-09-2019 Beta-Hydroxybutyrate0.09 mmol/L0.02 - 0.27 mmol/LMBrown Memorial Hospital, OHCBC WITH AUTO DIFFERENTIALon [id number] (Bld) [#/Vol]0.03 10*3/[facility], KYBasophils/100 WBC (Bld)0 %0 - 2 %[facility], OHDifferential TypeNOT REPORTEDUniversity [facility]als [facility], KYEosinophils (Bld) [#/Vol]10*3/[facility], [place] Eosinophils/100 WBC (Bld)0 %Low1 - 4 %[place], KYErythrocyte distribution width (RBC) [Ratio]14.2 %11.8 - 14.4 %[facility], [place] Hematocrit (Bld) [Volume fraction]44.6 %36.3 - 47.1 %[facility], [place] Hemoglobin (Bld) [Mass/Vol]14.2 g/dL11.9 - 15.1 g/dLUniversity Hospitals E[facility], OHImmature granulocytes (Bld) [#/Vol]1 %[address] [place] [address], OHImmature granulocytes (Bld) [#/Vol]0.06 10*3/[facility], OHInterpretation and review of laboratory resultsAbnoThe Surgical Hospital at Southwoods, OHLymphocytes (Bld) [#/Vol]0.97 10*3/uLLowMercy Health- [place], KYLymphocytes/100 WBC (Bld)13 %Low24 - 43 %[facility], KYMCH (RBC) [Entitic mass]29.7 pg25.2 - 33.5 pgMercy Health Fairfield Hospital [place], [place] MCHC (RBC) [Mass/Vol]31.8 g/dL28.4 - 34.8 g/dLMercy Health Fairfield Hospital [place], KYMCV (RBC) [Entitic vol]93.3 fL82.6 - 102.9 fLUniversity Hospitals Elyria Medical Center, KYMonocytes (Bld) [#/Vol] 0.52 10*3/uLMercy Health Fairfield Hospital [place], KYMonocytes/100 WBC (Bld)7 %3 - 12 %[facility] [place], KYPlatelet mean volume (Bld) [Entitic vol]10.9 fL8.1 - 13.5 fLMercy Health Fairfield Hospital [place], KYPlatelets (Bld) [#/Vol]NOT REPORTEDUniversity [facility]als [facility], KYPlatelets (Bld) [#/Vol]202 10*3/uLUniversity Hospitals E[facility], KYRBC (Bld) [#/Vol]4.78 10*6/uL3.95 - 5.11 m/uLUniversity Hospitals E[facility], KYRBC morphology finding Nom (Bld)NOT REPORTEDUniversity [facility]als [facility], OHSegmented neutrophils/100 WBC (Bld)79 %High36 - 65 %[facility], KYSegs Absolute6.10[facility], KYWBC (Bld) [#/Vol]0.0 10*3/uL0.0 per 100 WBCUniversity Hospitals Elyria Medical Center, KYWBC (Bld) [#/Vol]7.7 10*3/uLUniversity Hospitals Ely[facility] Center, KYWBC MorphologyNOT REPORTEDUniversity Hospitals [facility], KYCBC with Diffon [id number]. Basophil0.03 k/uLNormal0.00-0.20[facility] HospitalComment on above:Performed By: #### CDP, CP, LIP, TROPI, LIPRF, GLYHGB #### [employer] [address] [place] [address] Mottler Operator: Marie Mcmanus.Imm.Granulocyte0.06 k/uLNormal0.00-0.30[facility] HospitalComment on above:Performed By: #### CDP, CP, LIP, TROPI, LIPRF, GLYHGB #### [address] [address] Mottler Operator: Marie Mcmanus.Neutrophil (Seg)6.10 k/uLNormal1.50-8.10 [facility] HospitalComment on above:Performed By: #### CDP, CP, LIP, TROPI, LIPRF, GLYHGB #### [address] [address] Mottler Operator: Brandon Anaya MDBasophils/100 WBC (Bld)0 %Normal0-2MMercy Medical CenterComment on above:Performed By: #### CDP, CP, LIP, TROPI, LIPRF, GLYHGB #### [address] [address] Mottler Operator: Brandon Anaya MDEosinophils (Bld) [#/Vol]10*3/uLNormal0.00-0.44 [facility] HospitalComment on above:Performed By: #### CDP, CP, LIP, TROPI, LIPRF, GLYHGB #### [address] [address] Mottler Operator: MAU Mcmanusosinophils/100 WBC (Bld)0 %Low1-4[facility] HospitalComment on above:Performed By: #### CDP, CP, LIP, TROPI, LIPRF, GLYHGB #### [address] [address] Mottler Operator: Brandon Anaya MDErythrocyte distribution width (RBC) [Ratio]14.2 %Vxlmgy11.8-14.4[facility] HospitalComment on above:Performed By: #### CDP, CP, LIP, TROPI, LIPRF, GLYHGB #### [facility] [address] [place] [address] Mottler Operator: Brandon Anaya MDHematocrit (Bld) [Volume fraction]44.6 %Normal 36.3-47.1MMercy Medical CenterComment on above:Performed By: #### CDP, CP, LIP, TROPI, LIPRF, GLYHGB #### [facility] [address] [place] [address] Mottler Operator: Brandon Anaya MDHemoglobin (Bld) [Mass/Vol]14.2 g/dLNormal 11.9-15.1MMercy Medical CenterComment on above:Performed By: #### CDP, CP, LIP, TROPI, LIPRF, GLYHGB #### [place] [address] Mottler Operator: Brandon Anaya MDImmature granulocytes (Bld) [#/Vol]1 %Aroo8GaidaFayette County Memorial HospitalComment on above:Performed By: #### CDP, CP, LIP, TROPI, LIPRF, GLYHGB #### [facility] [employer] [address] [place] [address] Mottler Operator: Kortney Mcmanusmphocytes (Bld) [#/Vol]0.97 10*3/uLLow 1.10-3.70[facility] HospitalComment on above:Performed By: #### CDP, CP, LIP, TROPI, LIPRF, GLYHGB #### [facility] [employer] [address] [place] [address] Mottler Operator: Luiza Mcmanushocytes/100 WBC (Bld)13 %Mdn18-86ZvokxFayette County Memorial HospitalComment on above:Performed By: #### CDP, CP, LIP, TROPI, LIPRF, GLYHGB #### [facility] [employer] [address] [place] [address] Mottler Operator: LIZZY McmanusCH (RBC) [Entitic mass]29.7 tkRlfahv93.2-33.5 [facility] HospitalComment on above:Performed By: #### CDP, CP, LIP, TROPI, LIPRF, GLYHGB #### [facility] [employer] [address] [place] [address] Mottler Operator: LIZZY McmanusCHC (RBC) [Mass/Vol]31.8 g/sTLlleph27.4-34.8 [facility] HospitalComment on above:Performed By: #### CDP, CP, LIP, TROPI, LIPRF, GLYHGB #### [facility] [employer] [address] [place] [address] Mottler Operator: LIZZY McmanusCV (RBC) [Entitic vol]93.3 xUFotoet70.6-102.9 [facility] HospitalComment on above:Performed By: #### CDP, CP, LIP, TROPI, LIPRF, GLYHGB #### [facility] [employer] [address] [place] [address] Mottler Operator: LIZZY Mcmanusonocytes (Bld) [#/Vol]0.52 10*3/uLNormal 0.10-1.20[facility] HospitalComment on above:Performed By: #### CDP, CP, LIP, TROPI, LIPRF, GLYHGB #### [facility] [employer] [address] [place] [address] Mottler Operator: LIZZY Mcmanusonocytes/100 WBC (Bld)7 %Normal3-12[facility] HospitalComment on above:Performed By: #### CDP, CP, LIP, TROPI, LIPRF, GLYHGB #### [facility] [employer] [address] [place] [address] Mottler Operator: Brandon Anaya MDNeutrophil (Seg)79 %Ledy81-22VxouqFayette County Memorial HospitalComment on above:Performed By: #### CDP, CP, LIP, TROPI, LIPRF, GLYHGB #### [facility] [address] [place] [address] Mottler Operator: JOSIE Mcmanus Automated0.0 per 100 WBCNormal0.0F[facility] HospitalComment on above:Performed By: #### CDP, CP, LIP, TROPI, LIPRF, GLYHGB #### [facility] [address] [place] [address] Mottler Operator: Nadeem Mcmanus mean volume (Bld) [Entitic vol]10.9 fL Normal8.1-13.5[facility] HospitalComment on above:Performed By: #### CDP, CP, LIP, TROPI, LIPRF, GLYHGB #### [facility] [address] [place] [address] Mottler Operator: Bon Mcmanus (Bld) [#/Vol]202 10*3/uNBsrucs494-057 [facility] HospitalComment on above:Performed By: #### CDP, CP, LIP, TROPI, LIPRF, GLYHGB #### [facility] [employer] [address] [place] [address] Mottler Operator: RICHA Mcmanus (Bld) [#/Vol]4.78 10*6/uLNormal3.95-5.11 [facility] HospitalComment on above:Performed By: #### CDP, CP, LIP, TROPI, LIPRF, GLYHGB #### [facility] [employer] [address] [place] [address] Mottler Operator: LUCIAN Mcmanus (Bld) [#/Vol]7.7 10*3/uLNormal3.5-11.3MMercy Medical CenterComment on above:Performed By: #### CDP, CP, LIP, TROPI, LIPRF, GLYHGB #### [facility] [address] [place] [address] Mottler Operator: Gustabo Mcmanus Diff PerformedNOT REPORTEDNormalFayette County Memorial HospitalComment on above:Performed By: #### CDP, CP, LIP, TROPI, LIPRF, GLYHGB #### [facility] [address] [place] [address] Mottler Operator: BLADIMIR Mcmanuslatelets (Bld) [#/Vol]NOT REPORTEDNoTrinity Health System West CampusComment on above:Performed By: #### CDP, CP, LIP, TROPI, LIPRF, GLYHGB #### [facility] [address] [place] [address] Mottler Operator: RICHA Mcmanus morphology finding Nom (Bld)NOT REPORTED Kindred Hospital DaytonComment on above:Performed By: #### CDP, CP, LIP, TROPI, LIPRF, GLYHGB #### [facility] [address] [place] [address] Mottler Operator: LUCIAN Mcmanus MorphologyNOT REPORTEDKindred Hospital DaytonComment on above:Performed By: #### CDP, CP, LIP, TROPI, LIPRF, GLYHGB #### [facility] [address] [place] [address] Mottler Operator: NEHAL McmanusOVIToribio-19, PCRon [id number]-CoV-2MercHCA [facility], SRMAMJ-VpM-7, PCRUniversity Hospitals Elyria Medical Center, MWXFNI-YnP-5, RapidNot Detected Not [place], KYComc.[facility]. [facility] on above: Rapid NAAT: The specimen is [...] management decisions. Fact sheet for Healthcare Providers: https://www.fda.gov/media/817584/download Fact sheet for Patients: https://www.fda.gov/media/888587/download Methodology: Isothermal Nucleic Acid Amplification Source.NASOPHARYNGEAL SWABUniversity Hospitals Elyria Medical CenterFontacto OHCT CHEST PULMONARY EMBOLISM W CONTRASTon [id number] CHEST PULMONARY EMBOLISM W CONTRASTEXAMINATION: CTA OF [...] Signed by: Forrest Darby MD 10/09/19 Final resultNormalFayette County Memorial HospitalNo central or segmental pulmonary embolus. No acute pulmonary process. Emphysema.[facility], [place] EXAMINATION: CTA OF THE CHEST 10/09/2019 5:52 [...] No focal consolidation. Bones: Thoracic spine degenerative changes.AmbarellaRadha Mhpn Incoming Radiant Results From Bookeen/Adioso - 10/09/2019 8:31 AM EDT EXAMINATION: CTA [...] pulmonary embolus. No acute pulmonary process. Emphysema. AmbarellaRick Metabolic Profon 10-09-2019(cont.)NormalFayette County Memorial HospitalComment on above:Result Comment: Average GFR for 70 or more years old: 75 mL/min/1.73sq m Chronic Kidney Disease: <60 mL/min/1.73sq m Kidney failure: <15 mL/min/1.73sq m eGFR calculated using average adult body mass. Additional eGFR calculator available at: http://www.Kazeon.com/multiple_crcl_2012.htmPerformed By: #### CDP, CP, LIP, TROPI, LIPRF, GLYHGB #### [address] [address] Mottler Operator: Brandon Anaya MDAlbumin [Mass/Vol]4.1 g/dLNormal3.5-5.2MMercy Medical CenterComment on above:Performed By: #### CDP, CP, LIP, TROPI, LIPRF, GLYHGB #### [place] [address] Mottler Operator: Brandon Anaya MDAlbumin/Globulin [Mass ratio]1.6 {ratio}Normal 1.0-2.5[facility] Memorial HospitalComment on above:Performed By: #### CDP, CP, LIP, TROPI, LIPRF, GLYHGB #### [facility] [employer] [address] [place] [address] Mottler Operator: Po Mcmanus Phos90 U/ESljajg10-816XqcbsFayette County Memorial HospitalComment on above:Performed By: #### CDP, CP, LIP, TROPI, LIPRF, GLYHGB #### [place] [address] Mottler Operator: Brandon Anaya MDALT [Catalytic activity/Vol]15 U/LNormal5-33 [facility] HospitalComment on above:Performed By: #### CDP, CP, LIP, TROPI, LIPRF, GLYHGB #### [facility] [employer] [address] [place] [address] Mottler Operator: James Mcmanus gap [Moles/Vol]18 mmol/LHigh9-17[facility] HospitalComment on above:Performed By: #### CDP, CP, LIP, TROPI, LIPRF, GLYHGB #### [facility] [address] [place] [address] Mottler Operator: Brandon Anaya MDAST [Catalytic activity/Vol]11 U/LNormal<32[facility] HospitalComment on above:Performed By: #### CDP, CP, LIP, TROPI, LIPRF, GLYHGB #### [address] [address] Mottler Operator: Brandon Anaya MDBilirubin Ql (U)0.39 mg/dLNormal0.3-1.2Mcleveland clinic hillcrest hospitaly Doctor[facility] Medical CenterComment on above:Performed By: #### CDP, CP, LIP, TROPI, LIPRF, GLYHGB #### [address] [address] Mottler Operator: NEHAL Mcmanusalcium [Mass/Vol]9.5 mg/dLNormal8.6-10.4[facility] HospitalComment on above:Performed By: #### CDP, CP, LIP, TROPI, LIPRF, GLYHGB #### [address] [address] Mottler Operator: Brandon Anaya MDChloride [Moles/Vol]99 mmol/GEfyzhb32-676BekvgFayette County Memorial HospitalComment on above:Performed By: #### CDP, CP, LIP, TROPI, LIPRF, GLYHGB #### [facility] [employer] [address] [place] [address] Mottler Operator: Brandon Anaya MDCO2 [Moles/Vol]24 mmol/WQypsri66-72BgdkqFayette County Memorial HospitalComment on above:Performed By: #### CDP, CP, LIP, TROPI, LIPRF, GLYHGB #### [facility] [employer] [address] [place] [address] Mottler Operator: NEHAL Mcmanusreatinine [Mass/Vol]0.63 mg/dLNormal0.50-0.90 [facility] HospitalComment on above:Performed By: #### CDP, CP, LIP, TROPI, LIPRF, GLYHGB #### [address] [address] Mottler Operator: Brandon Anaya MDGFR, Amer>60Normal>60Mer[facility] Medical CenterComment on above:Performed By: #### CDP, CP, LIP, TROPI, LIPRF, GLYHGB #### [place] [address] Mottler Operator: Brandon Anaya MDGFR,non Amer>60Normal>60MerWhittier Hospital Medical CenterComment on above:Performed By: #### CDP, CP, LIP, TROPI, LIPRF, GLYHGB #### [place] [address] Mottler Operator: Brandon Anaya MDGlucose [Mass/Vol]208 mg/bMSakn21-66DpuzwMercy Medical CenterComment on above:Performed By: #### CDP, CP, LIP, TROPI, LIPRF, GLYHGB #### [place] [address] Mottler Operator: BLADIMIR Mcmanusotassium [Moles/Vol]3.9 mmol/LNormal3.7-5.3 [facility] HospitalComment on above:Performed By: #### CDP, CP, LIP, TROPI, LIPRF, GLYHGB #### [place] [address] Mottler Operator: Brandon Anaya MDProtein [Mass/Vol]6.6 g/dLNormal6.4-8.3MMercy Medical CenterComment on above:Performed By: #### CDP, CP, LIP, TROPI, LIPRF, GLYHGB #### [address] [address] Mottler Operator: FABIANA Mcmanusodium [Moles/Vol]141 mmol/VKsphmq940-937YesnrFayette County Memorial HospitalComment on above:Performed By: #### CDP, CP, LIP, TROPI, LIPRF, GLYHGB #### [facility] [address] [place] [address] Mottler Operator: Brandon Anaya MDUrea nitrogen [Mass/Vol]17 mg/dLNormal8-23[facility] HospitalComment on above:Performed By: #### CDP, CP, LIP, TROPI, LIPRF, GLYHGB #### [facility] [address] [place] [address] Mottler Operator: RADHA Mcmanus/CRE RatioNOT REPORTEDNormal9-20[facility] HospitalComment on above:Performed By: #### CDP, CP, LIP, TROPI, LIPRF, GLYHGB #### [facility] [address] [place] [address] Mottler Operator: FABIANA Mcmanustaging:NOT REPORTEDNormalFayette County Memorial HospitalComment on above:Performed By: #### CDP, CP, LIP, TROPI, LIPRF, GLYHGB #### [facility] [address] [place] [address] Mottler Operator: NEHAL Mcmanusomprehensive Metabolic Panelon 10-09-2019 Albumin [Mass/Vol]4.1 g/dL3.5 - 5.2 g/dLUniversity Hospitals Elyria Medical Center, KYAlbumin/Globulin [Mass ratio]1.6 {ratio}[facility]- [place], KYALP [Catalytic activity/Vol]90 U/L35 - 104 U/LMPremier Health Miami [facility] Hospital South [place], KYALT [Catalytic activity/Vol]15 U/L5 - 33 U/[facility] [place], KYAnion gap [Moles/Vol]18 mmol/LHigh9 - 17 mmol/LMAdena Regional Medical Center- [place], KYAST [Catalytic activity/Vol]11 U/L<32[facility]- [place], KYBilirubin Ql (U)0.39 mg/dL0.3 - 1.2 mg/dLSelect [facility]ty [facility] [place]- [place], KYBun/Cre RatioNOT REPORTEDMerTrios Health- [place], KYCalcium [Mass/Vol]9.5 mg/dL8.6 - 10.4 mg/dLSelect Medical Specialty [facility] [place]- [place], KYChloride [Moles/Vol]99 mmol/L98 - 107 mmol/LMuniversity hospitals conneaut [facility] center Health- [place], KYCO2 [Moles/Vol]24 mmol/L 20 - 31 mmol/LMercy Health- [place], KYCreatinine [Mass/Vol]0.63 mg/dL0.5 - 0.9 mg/dL [facility], KYGFR >60>60 mL/minMercy Health Fairfield Hospital [place], KYGFR Non->60>60 mL/minSelect Medical Specialty [facility] [place]- [place], KYGFR/1.73 sq M predicted among non-blacks MDRD (S/P/Bld) [Vol rate/Area][facility], KYComment on above:Average GFR for 70 or more years old: 75 mL/min/1.73sq m Chronic Kidney Disease: <60 mL/min/1.73sq m Kidney failure: <15 mL/min/1.73sq m eGFR calculated using average adult body mass. Additional eGFR calculator available at: http://www.Best Before [employer]/multiple_crcl_2012.htm GFR/1.73 sq M predicted among non-blacks MDRD (S/P/Bld) [Vol rate/Area]NOT REPORTEDMercy Health Fairfield Hospital [place], KYGlucose [Mass/Vol]208 mg/zIEslv64 - 99 mg/dLSelect Medical Specialty [facility] [place]- [place], KYInterpretation and review of laboratory resultsAbnormalSelect Medical Specialty [facility] [place]- [place], KYPotassium [Moles/Vol]3.9 mmol/L3.7 - 5.3 mmol/LMcleveland clinic hillcrest hospitaly Health- [place], KYProtein [Mass/Vol]6.6 g/dL6.4 - 8.3 g/dLSelect [facility] Specialty [facility] [place]- [place], KYSodium [Moles/Vol] 141 mmol/L135 - 144 mmol/LMcleveland clinic hillcrest hospitaly Health- [place], KYUrea nitrogen [Mass/Vol]17 mg/dL8 - 23 mg/dLSelect Medical Specialty [facility] [place]- [place], KYEKG 12 Leadon 05-40-5055Ngfdkh Ewqa30BIUOnsvk Health- [place], [place] Rnts40zobvjjgSrajg Health- [place], [place]-R Wlvrfccc611 [facility]- [place], KYQ-T Jflqvosq593 [facility]- [place], KYQRS Xcuraqit63 [facility]- [place], KYQTc Calculation (Bazett)466 [facility]- [place], KYR Blackburn-9degrH[facility]- [place], KYT Ddvl7nuywkpnEhjzu Health- [place], KYVentricular Plqw37NVQKgwtz Health- [place], KYEdi, Mhpn Incoming Ekg Results From [facility] [place] - 10/09/2019 3:25 PM EDT Normal sinus rhythm Possible Left atrial enlargement Nonspecific ST abnormality Abnormal ECG No previous ECGs availableUniversity Hospitals [facility], KYNormal sinus rhythm Possible Left atrial enlargement Nonspecific ST abnormality Abnormal ECG No previous ECGs availableUniversity Hospitals Elyria [facility] Center, KYLIPASEon 97-11-6609Hdgret [Catalytic activity/Vol] 48 U/L13 - 60 U/LMBrown Memorial Hospital, KYLipaseon 64-06-4529Maamcv [Catalytic activity/Vol]48 U/FXcqyfc24-97WxbdtFayette County Memorial HospitalComment on above: Performed By: #### KRIS, CP, LIP, TROPI, LIPRF, GLYHGB #### [facility] [address] [place] [address] Mottler Operator: Cooper Mcmanus Prof, Fastingon 67-53-5375Slewugstdck [Mass/Vol]229 mg/dLHigh<200F[facility] County Memorial HospitalComment on above: Result Comment: Cholesterol Guidelines: <200 Desirable 200-240 Borderline >240 UndesirablePerformed By: #### CDP, CP, LIP, TROPI, LIPRF, GLYHGB #### [facility] [address] [place] [address] [phone] Mottler Operator: NEHAL Mcmanusholesterol in HDL [Mass/Vol]50 mg/dLNormal>40 [facility] HospitalComment on above:Result Comment: HDL Guidelines: <40 Undesirable 40-59 Borderline >59 DesirablePerformed By: #### CDP, CP, LIP, TROPI, LIPRF, GLYHGB #### [facility] [address] [place] [address] 40922 Mottler Operator: NEHAL Mcmanusholesterol in LDL [Mass/Vol]143 mg/dLHigh0-130 [facility] HospitalComment on above:Result Comment: LDL Guidelines: <100 Desirable 100-129 Near to/above Desirable 130-159 Borderline >159 Undesirable Direct (measured) LDL and calculated LDL are not interchangeable tests.Performed By: #### CDP, CP, LIP, TROPI, LIPRF, GLYHGB #### [facility] [address] [place] [address] 31688 Mottler Operator: Chanel Mcmanus.total/Cholesterol in HDL [Mass ratio]4.6 {ratio}Normal<5F[facility] County Memorial HospitalComment on above: Performed By: #### CDP, CP, LIP, TROPI, LIPRF, GLYHGB #### [facility] [address] [place] [address] 42853 Mottler Operator: Brandon Anaya MDTriglyceride,Iigzufj001 mg/dLHigh<150F[facility] County Memorial HospitalComment on above:Result Comment: Triglyceride Guidelines: <150 Desirable 150-199 Borderline 200-499 High >499 Very high Based on AHA Guidelines for fasting triglyceride, November 2011.Performed By: #### CDP, CP, LIP, TROPI, LIPRF, GLYHGB #### [facility] [address] [place] [address] 84046 Mottler Operator: NEHAL Mcmanusholesterol in VLDL [Mass/Vol]NOT REPORTEDNormal 1-30F[facility] Memorial HospitalComment on above:Performed By: #### CDP, CP, LIP, TROPI, LIPRF, GLYHGB #### [facility] [address] [place] [address] Mottler Operator: Brandon Anaya MDLipid, Fastingon 22-53-8171Enbzezrvknl [Mass/Vol]229 mg/dLHigh<200[place], KYComment on above: Cholesterol Guidelines: <200 Desirable 200-240 Borderline >240 Undesirable Cholesterol in HDL [Mass/Vol]50 mg/dL>40[place], KYComment on above: HDL Guidelines: <40 Undesirable 40-59 Borderline >59 Desirable Cholesterol in LDL [Mass/Vol]143 mg/dLHigh0 - 130 mg/dLH[place], [place] Comment on above: LDL Guidelines: <100 Desirable 100-129 Near to/above Desirable 130-159 Borderline >159 Undesirable Direct (measured) LDL and calculated LDL are not interchangeable tests. Cholesterol in VLDL [Mass/Vol]NOT REPORTEDHigh1 - 30 mg/dLH[place], [place] Cholesterol.total/Cholesterol in HDL [Mass ratio]4.6 {ratio}<5[place], KYInterpretation and review of laboratory resultsAbnoDallas, [place] Triglyceride, Gtdmjbe065 mg/dLHigh<150[place], KYComment on above: Triglyceride Guidelines: <150 Desirable 150-199 Borderline 200-499 High >499 Very high Based on AHA Guidelines for fasting triglyceride, November 2011. POC Glucose Fingerstickon 48-76-1480Riwdtvt [Mass/Vol]126 mg/qBSnyq89 - 105 mg/dLHudson, KYInterpretation and review of laboratory resultsAbnoLas Vegas, KYSARS-CoV-2on 20-89-9770OXVU-CoV-2NormalFayette County Memorial HospitalComment on above:Performed By: #### COVID #### [facility] [place] [address] Mottler Operator: MAEVE Mcmanus-CoV-2,RapidNot DetectedNormiaNOTDERegency Hospital CompanyComment on above:Result Comment: Rapid NAAT: The specimen [...] management decisions. Fact sheet for Healthcare Providers: https://www.fda.gov/media/492660/download Fact sheet for Patients: https://www.fda.gov/media/956503/download Methodology: Isothermal Nucleic Acid AmplificationPerformed By: #### COVID #### [facility] [address] [place] [address] 84957 Mottler Operator: Toi Mcmanus Source.NASOPHARYNGEAL SWABNormalFayette County Memorial HospitalComment on above:Performed By: #### COVID #### [facility] [address] [place] [address] 69978 Mottler Operator: Abimael Mcmanus 21-62-9317Nqgsjcgv I.cardiac [Mass/Vol]10 ng/LNormal0-14F[facility] County Memorial HospitalComment on above: Result Comment: High Sensitivity Troponin values cannot be compared with other Troponin methodologies. Patients with high levels of Biotin oral intake (i.e >5mg/day) may have falsely decreased Troponin levels. Samples collected within 8 hours of biotin intake may require additional information for diagnosis.Performed By: #### ELMIRA CHAPMAN #### [facility] [address] [place] [address] 11282 Mottler Operator: Brennan Mcmanus I.cardiac [Mass/Vol]NOT REPORTEDNormal <0.03F[facility] Memorial HospitalComment on above:Performed By: #### ELMIRA CHAPMAN #### [facility] [address] [place] [address] 14503 Mottler Operator: Brennan Mcmanus I.cardiac [Mass/Vol]10 ng/LNormal0-14 [facility] HospitalComment on above:Result Comment: High Sensitivity Troponin values cannot be compared with other Troponin methodologies. Patients with high levels of Biotin oral intake (i.e >5mg/day) may have falsely decreased Troponin levels. Samples collected within 8 hours of biotin intake may require additional information for diagnosis.Performed By: #### CDP, CP, LIP, TROPI, LIPRF, GLYHGB #### [facility] [place], [place] [phone] Mottler Operator: Brennan Mcmanus I.cardiac [Mass/Vol]NOT REPORTEDCleveland Clinic [facility] GreenerU- [place], KYTroponin T.cardiac [Mass/Vol]NOT REPORTED<0.03 ng/mLMercy Health Fairfield Hospital [place], KYTroponin, High Bbimuygwkfm23 ng/L0 - 14 ng/LMercy [facility] [place], KYComment on above: High Sensitivity Troponin values cannot be compared with other Troponin methodologies. Patients with high levels of Biotin oral intake (i.e >5mg/day) may have falsely decreased Troponin levels. Samples collected within 8 hours of biotin intake may require additional information for diagnosis. Troponin I.cardiac [Mass/Vol]NOT REPORTEDNormal<0.03F[facility] Memorial HospitalComment on above:Performed By: #### CDP, CP, LIP, TROPI, LIPRF, GLYHGB #### [facility] [address] [place] [address] Mottler Operator: Brennan Mcmanus INayacardiac [Mass/Vol]NOT REPORTEDCleveland Clinic South Pointe Hospital GreenerU- [place], KYTroponin T.cardiac [Mass/Vol]NOT REPORTED<0.03 ng/mLUniversity Hospitals E[facility], KYTroponin, High Ostplwesmxj75 ng/L0 - 14 ng/LMercy [facility] [place], KYComc.s. mott children's hospital on above: High Sensitivity Troponin values cannot be compared with other Troponin methodologies. Patients with high levels of Biotin oral intake (i.e >5mg/day) may have falsely decreased Troponin levels. Samples collected within 8 hours of biotin intake may require additional information for diagnosis. UA w/Reflex Cultureon 76-97-4132Awuhieqwsfd Acid,UrTRACEAbnormalNEGMerWhittier Hospital Medical CenterComment on above:Performed By: #### CDP, CP, LIP, TROPI, LIPRF, GLYHGB #### [facility] [address] [place] [address] 52348 Mottler Operator: Brandon Anaya MDBilirubin, SemiQt,UrNegativeNormalNEGFayette County Memorial HospitalComment on above:Performed By: #### CDP, CP, LIP, TROPI, LIPRF, GLYHGB #### [facility] [address] [place] [address] 87922 Mottler Operator: NEHAL Mcmansuolor (U)YELLOWNormalYELMerWhittier Hospital Medical CenterComment on above:Performed By: #### CDP, CP, LIP, TROPI, LIPRF, GLYHGB #### [facility] [address] [place] [address] 45080 Mottler Operator: Brandon Anaya MDGlucose Ql (U)NegativeNormalNEGFayette County Memorial HospitalComment on above:Performed By: #### CDP, CP, LIP, TROPI, LIPRF, GLYHGB #### [facility] [address] [place] [address] 90392 Mottler Operator: Brandon Anaya MDHemoglobin, UrNegativeNormalNEGFayette County Memorial HospitalComment on above:Performed By: #### CDP, CP, LIP, TROPI, LIPRF, GLYHGB #### [facility] [address] [place] [address] 42819 Mottler Operator: Brandon Anaya MDLeukocyte esterase Test strip Ql (U)Negative NormalNEGFayette County Memorial HospitalComment on above:Performed By: #### CDP, CP, LIP, TROPI, LIPRF, GLYHGB #### [facility] [address] [place] [address] 35939 Mottler Operator: Brandon Anaya MDNitrite,UrNegativeNormalNEGFayette County Memorial HospitalComment on above:Performed By: #### CDP, CP, LIP, TROPI, LIPRF, GLYHGB #### [facility] [address] [place] [address] 67190 Mottler Operator: Bladimir Mcmanus (U)5.5 [pH]Normal5.0-8.0F[facility] Memorial HospitalComment on above:Performed By: #### CDP, CP, LIP, TROPI, LIPRF, GLYHGB #### [facility] [address] [place] [address] 24913 Mottler Operator: BLADIMIR Mcmanuscarrier clinic Ql (U)1+AbnormalNEGFayette County Memorial HospitalComment on above:Performed By: #### CDP, CP, LIP, TROPI, LIPRF, GLYHGB #### [facility] [address] [place] [address] 89177 Mottler Operator: FABIANA Mcmanuspecific gravity (U) [Rel density]1.086High 1.005-1.030F[facility] Memorial HospitalComment on above:Performed By: #### CDP, CP, LIP, TROPI, LIPRF, GLYHGB #### [facility] [address] [place] [address] 72352 Mottler Operator: Gwendolyn McmanusidityCLEARNoalCMartins Ferry HospitalComment on above:Performed By: #### CDP, CP, LIP, TROPI, LIPRF, GLYHGB #### [facility] [address] [place] [address] 64735 Mottler Operator: Jackie Mcmanus,UrNormalNormalSheltering Arms HospitalComment on above:Performed By: #### CDP, CP, LIP, TROPI, LIPRF, GLYHGB #### [facility] [address] [place] [address] 53467 Mottler Operator: Jeni McmanusNOT REPORTEDNoTrinity Health System West CampusComment on above:Performed By: #### CDP, CP, LIP, TROPI, LIPRF, GLYHGB #### [facility] [address] [place] [address] Mottler Operator: Brandon Anaya MDURINALYSIS, MICROon 80-31-9573Fdtefzabi, UANOT REPORTEDNoneMercy Health- [place], KYBacteria, UANOT REPORTEDNoneMercy [...] [place], [place]-[facility]- [place], KYUS ABDOMEN LIMITEDon [id number] ABDOMEN LIMITED EXAMINATION: RIGHT UPPER QUADRANT ULTRASOUND 10/09/2019 3:35 pm COMPARISON: None. HISTORY: ORDERING SYSTEM PROVIDED HISTORY: RUQ and epigastric pain, r/o cholecystitis, gall bladder, pancreas rn oncology research PROVIDED HISTORY: RUQ and epigastric pain, r/o [...] Signed by: Fransisco Ochoa MD 10/09/19 Final resultNormalFayette County Memorial HospitalUS ABDOMEN LIMITED Specify organ? LIVER, GALLBLADDER, PANCREASon [id number]: RIGHT UPPER QUADRANT ULTRASOUND 10/09/2019 3:35 pm COMPARISON: None. HISTORY: ORDERING SYSTEM PROVIDED HISTORY: RUQ and epigastric pain, r/o cholecystitis, gall bladder, pancreas rn oncology research PROVIDED HISTORY: RUQ and epigastric pain, r/o [...] OTHER: No evidence of right upper quadrant ascites.IV DiagnosticsMISSOURI BAPTIST MEDICAL CENTER, CLARAUnremarkable right upper quadrant ultrasound.[facility] Medical CenterRadha Mhpn Incoming Radiant Results From [employer] - 10/09/2019 4:01 PM EDT EXAMINATION: RIGHT UPPER QUADRANT ULTRASOUND 10/09/2019 3:35 pm COMPARISON: None. HISTORY: ORDERING SYSTEM PROVIDED HISTORY: RUQ and epigastric pain, r/o cholecystitis, gall bladder, pancreas rn oncology research PROVIDED HISTORY: RUQ and epigastric pain, r/o [...] ascites. IMPRESSION: Unremarkable right upper quadrant ultrasound. Ambarella, CLARAUrinalysis Reflex to Cultureon [id number] Urine NegativeNEGATIVEMckitrick HospitalGetPrice [facility] HospitalLiveroof [place], [place]Color, UAYELLOWYELLOWSelect Medical Specialty Hospital - CincinnatiLiveroof [place], [place] Glucose, UrNegativeNEGATIVEMercy Health- [place], KYInterpretation and review of laboratory resultsAbnormalMercy Health- [place], KYKetones Ql (U)TRACEAbnormal NEGATIVEMercy Health- [place], KYLeukocyte esterase Test strip Ql (U)NegativeNEGATIVE [facility]- [place], KYNitrite, UrineNegativeNEGATIVEMercy Health- [place], KYpH, UA5.5 [facility]- [place], KYProtein (U) [Mass/Vol]1+AbnormalNEGATIVEMercy Health- [place], [place] Specific [place], UA1.086HighMercy Health- [place], KYTurbidity UACLEARCLEARMercy Health- [place], KYUrinalysis CommentsNOT REPORTEDMercy Health- [place], KYUrine Hgb NegativeNEGATIVEMercy Health- [place], KYUrobilinogen, UrineNormalNormalMercy Health- [place], KYUrinalysis,Microon 10-09-2019-----NormalMckitrick Hospitalcy [facility] Comment on above:Performed By: #### CDP, CP, LIP, TROPI, LIPRF, GLYHGB #### [facility] [address] [place] [address] [phone] Mottler Operator: Brandon Anaya MDEpithelial cells LM.HPF (Urine sed) [#/Area]10 TO 49Yjxoca7-3XbyplFayette County Memorial HospitalComment on above:Performed By: #### CDP, CP, LIP, TROPI, LIPRF, GLYHGB #### [facility] [address] [place] [address] 51526 Mottler Operator: DREW Mcmanus (U) [#/Vol]0 TO 6Xafdqu1-7Dnppk [facility] CenterComment on above:Performed By: #### CDP, CP, LIP, TROPI, LIPRF, GLYHGB #### [facility] [address] [place] [address] 11237 Mottler Operator: Brandon Anaya MDWBC (U) [#/Vol]0 TO 8Bjrhiu6-0Wjbnm [facility] CenterComment on above:Performed By: #### CDP, CP, LIP, TROPI, LIPRF, GLYHGB #### [facility] [address] [place] [address] 50569 Mottler Operator: Iwona Mcmanus sediment LM Ql (Urine sed)NOT REPORTED NormalNONEMercy Doctor'[facility] Medical CenterComment on above:Performed By: #### CDP, CP, LIP, TROPI, LIPRF, GLYHGB #### [facility] [address] [place] [address] 66239 Mottler Operator: Rita Mcmanus LM.HPF (Urine sed) [#/Area]NOT REPORTED NormalNONEMeCommunity Hospital of San BernardinoComment on above:Performed By: #### CDP, CP, LIP, TROPI, LIPRF, GLYHGB #### [facility] [address] [place] [address] 28382 Mottler Operator: Maria Elena Mcmanus LM.LPF (Urine sed) [#/Area]NOT REPORTED Normal0-2Mer[facility] CenterComment on above:Performed By: #### CDP, CP, LIP, TROPI, LIPRF, GLYHGB #### [facility] [address] [place] [address] 05050 Mottler Operator: Andrew Mcmanus LM Nom (Urine sed)NOT REPORTEDNormal NONEMercy [facility] Medical CenterComment on above:Performed By: #### CDP, CP, LIP, TROPI, LIPRF, GLYHGB #### [facility] [address] [place] [address] 87080 Mottler Operator: Brandon Anaya MDEpithelial, RenalNOT LBOXLAXHZhxqgv0Myrux [facility] CenterComment on above:Performed By: #### CDP, CP, LIP, TROPI, LIPRF, GLYHGB #### [facility] [address] [place] [address] 23385 Mottler Operator: Yulia Mcmanus StrandsNOT REPORTEDNormalNONEMercy Hawk Springs Medical CenterComment on above:Performed By: #### CDP, CP, LIP, TROPI, LIPRF, GLYHGB #### [facility] [address] [place] [address] Mottler Operator: Brandon Anaya MDOther ObservationsNOT REPORTEDNormalNREQFayette County Memorial HospitalComment on above:Performed By: #### CDP, CP, LIP, TROPI, LIPRF, GLYHGB #### [facility] [address] [place] [address] Mottler Operator: Brandon Anaya MDTrichomonasNOT REPORTEDNormalNONEMeCommunity Hospital of San BernardinoComment on above:Performed By: #### CDP, CP, LIP, TROPI, LIPRF, GLYHGB #### [facility] [address] [place] [address] 62522 Mottler Operator: Brandon Anaya MDYeast LM Ql (Urine sed)NOT REPORTEDNormalTSEHOOTSOOI MEDICAL [facility]ENTER ([facility])E [facility] HospitalComment on above:Performed By: #### CDP, CP, LIP, TROPI, LIPRF, GLYHGB #### [facility] [address] [place] [address]25 Mottler Operator: LORIE Mcmanus ABDOMEN (KUB) (SINGLE AP VIEW)on [id number] ABDOMEN (KUB) (SINGLE AP VIEW)EXAMINATION: ONE SUPINE [...] Signed by: Naga Browning MD 10/09/19 Final resultNoTrinity Health System West CampusNo evidence of bowel obstruction.[facility], KYEXAMINATION: ONE SUPINE XRAY VIEW(S) OF THE ABDOMEN 10/09/2019 7:17 pm COMPARISON: None. HISTORY: ORDERING SYSTEM PROVIDED HISTORY: r/o SBO TECHNOLOGIST PROVIDED HISTORY: r/o SBO Reason for Exam: port Supine FINDINGS: Nonspecific, nonobstructive bowel gas pattern with paucity of bowel gas. Atherosclerotic calcifications. Retained contrast in the urinary bladder. No acute osseous abnormality.[facility] Medical CenterRadha Mhpn Incoming Radiant Results From [facility] Truman Showcribe/Pacs - 10/09/2019 7:35 PM EDT EXAMINATION: ONE [...] abnormality. IMPRESSION: No evidence of bowel obstruction. [facility] CenterEdgardosteroneon 64-05-0953Autuiqtoira8.8 ng/dLNormalMemorial Health System Marietta Memorial HospitalComment on above:Result Comment: (NOTE)INTERPRETIVE INFORMATION: Aldosterone, [...] c referenceintervals for this test in the [facility]([employer]).Performed by [facility],[address] [place] [address] wbf.[employer], Nik Rosas MD, Lab.DirectorPerformed at [facility] [address] [facility] [place] [address] ([phone] Performed By: #### AG ####[facility] [place] [address] #### MARYAM, AREN ####[facility], [place] [id number] Renin Activityon 40-52-5000Nfchi Activity0.1 ng/mL/hrNormOhioHealth Shelby HospitalComment on above:Result Comment: (NOTE)INTERPRETIVE INFORMATION: Renin ActivityAdult, Normal sodium diet: Supine ................. 0.2-1.6 ng/mL/hr Upright ................ 0.5-4.0 ng/mL/hrChildren, Normal sodium diet, Supine: Perkins (1-7 days) ..... 2.0-35.0 ng/mL/hr Cord blood [...] activity when angiotensinogen isdecreased.See Compliance Statement D: www.[employer]/CSPerformed by [facility],[address] [place] [address] sig.[employer], Nik Rosas MD, Lab. DirectorPerformed at [address] [address] [phone] By: #### CORTI ####[address] [place] [address] #### AALD, AREN ####[address] [phone] Metab w/rfx MGon 06-29-2017(cont.)NormalMemorial Health System Marietta Memorial HospitalComment on above:Result Comment: Average GFR for 70 or more years old: 75 mL/min/1.73sq mChronic Kidney Disease: <60 mL/min/1.73sq mKidney failure: <15 mL/min/1.73sq meGFR calculated using average adult body mass. Additional eGFR calculator available at:http://www.Kazeon.Mobile Event Guide/multiple_crcl_2012.htmPerformedat [address] [address] [phone] By: #### CDP, BMPX, TROPI ####[address] [phone] gap10 mmol/LNormal9-17[facility] Memorial HospitalComment on above:Performed By: #### CDP, BMPX, TROPI ####[address] [phone] mg/dLNormal8.6-10.4[facility] Memorial HospitalComment on above:Performed By: #### CDP, BMPX, TROPI ####[address] [address] Jkguumtz487 mmol/BCgzsel73-994QouudMemorial Health System Marietta Memorial HospitalComment on above:Performed By: #### CDP, BMPX, TROPI ####[address] [address] UJ526 mmol/JSgfuet58-30KsuiyAshtabula General HospitalComment on above:Performed By: #### CDP, BMPX, TROPI ####[address] [address] Jzyigyldmq4.66 mg/dLNormal0.50-0.90 [facility] Memorial HospitalComc.s. [facility] on above:Performed By: #### CDP, BMPX, TROPI ####[address] [address] eGFR (non-black)mL/min/{1.73_m2}Normal>60[facility] Memorial HospitalComc.s. [facility] on above: Performed By: #### CDP, BMPX, TROPI ####[address] [address] Glucose mass rdxm700 mg/mJBdqy69-56KfngiWood County HospitalComment on above:Performed By: #### CDP, BMPX, TROPI ####[address] [address] Potassium molar conc4.1 mmol/LNormal3.7-5.3MWood County HospitalComment on above: Performed By: #### CDP, BMPX, TROPI ####[address] [address] Ezncld398 mmol/KJvjhzz666-912XkqhyMemorial Health System Marietta Memorial HospitalComment on above:Performed By: #### CDP, BMPX, TROPI ####[address] [address] Urea mg/dLNormal8-23[facility] Memorial HospitalComment on above:Performed By: #### CDP, BMPX, TROPI ####[address] [phone]/CRE RatioNOT REPORTEDNormal9-20[facility] Comment on above:Performed By: #### CDP, BMPX, TROPI ####[address] [phone]:NOT REPORTEDNormal [facility] Memorial HospitalComment on above:Performed By: #### CDP, BMPX, TROPI ####[address] [phone] with Diffon [id number]. Basophil0.00 k/uLNormal0.0-0.2[facility] CenterComment on above:Result Comment: Performed at [address] [address] [phone] By: #### CDP, BMPX, TROPI ####[address] [address] [phone].Neutrophil (Seg)3.80 k/uLNormal1.3-9.1Mcleveland clinic [facility] hospitaly [facility] Comment on above:Performed By: #### CDP, BMPX, TROPI ####[address] [address] Basophils/100 WBC Auto (Bld)1 %Normal0-2[facility] CenterComment on above:Performed By: #### CDP, BMPX, TROPI ####[address] [address] Wbykfnvqlyx3.20 10*3/uLNormal0.0-0.4[facility] Comment on above:Performed By: #### CDP, BMPX, TROPI ####[address] [address] Eosinophils/100 leukocytes 2 %Normal0-4[facility] Memorial HospitalComment on above:Performed By: #### CDP, BMPX, TROPI ####[address] [phone] distribution width Auto Ratio (RBC)14.5 %Eggkeo13.5-14.9 [facility] Memorial HospitalComment on above:Performed By: #### CDP, BMPX, TROPI ####[address] [address] Erythrocytes (RBC)4.36 10*6/uLNormal4.0-5.2MWood County HospitalComment on above:Performed By: #### CDP, BMPX, TROPI ####[address] [address] Hematocrit (HCT)38.3 %Sopfqd11-88JdeouMemorial Health System Marietta Memorial HospitalComment on above:Performed By: #### CDP, BMPX, TROPI ####[address] [address] Hemoglobin mass conc (Bld)12.9 g/rCZgzqkf37.0-16.0[facility] Comment on above:Performed By: #### CDP, BMPX, TROPI ####[address] [address] Izsyqytahwn3.20 10*3/uL Normal1.0-4.8[facility] Memorial HospitalComment on above:Performed By: #### CDP, BMPX, TROPI ####[address] [phone]/100 tjfzxrbozx16 %Toyoct57-57IayqfMemorial Health System Marietta Memorial Hospital Comment on above:Performed By: #### CDP, BMPX, TROPI ####[address] [address] EJI23.5 mcBjjxly98-18EroxaMemorial Health System Marietta Memorial HospitalComment on above:Performed By: #### CDP, BMPX, TROPI ####[address] [address] MCHC mass conc (RBC)33.6 g/lVDdgknm55-25MjjgcAshtabula General HospitalComment on above: Performed By: #### CDP, BMPX, TROPI ####[address] [address] FCP84.8 xOXnwdka40-644PztypMemorial Health System Marietta Memorial HospitalComment on above:Performed By: #### CDP, BMPX, TROPI ####[address] [address] Eiqwznnhz1.50 10*3/uLNormal0.1-1.3MercRegency Hospital ToledoComment on above:Performed By: #### CDP, BMPX, TROPI ####[address] [address] Monocytes/100 leukocytes8 %High1-7[facility] Comment on above:Performed By: #### CDP, BMPX, TROPI ####[address] [address] Neutrophil (Seg)57 %Normal 36-66MerAshtabula General HospitalComment on above:Performed By: #### CDP, BMPX, TROPI ####[address] [phone] mean volume (PMV)8.5 fLNormal6.0-12.0[facility] HospitalComment on above:Performed By: #### CDP, BMPX, TROPI ####[address] [address] Okrapxnmb760 10*3/mRSyabyo542-027NhmikAshtabula General HospitalComment on above:Performed By: #### CDP, BMPX, TROPI ####[address] [address] WBC (Leukocytes)6.7 10*3/uLNormal3.5-11.0[facility] HospitalComment on above:Performed By: #### CDP, BMPX, TROPI ####[address] [address] Auto Diff PerformedNOT REPORTEDNoCleveland Clinic Children's Hospital for Rehabilitation on above:Performed By: #### CDP, BMPX, TROPI ####[address] [address] Erythrocyte morphologyNOT REPORTEDNoElyria Memorial HospitalComc.s. [facility] on above:Performed By: #### CDP, BMPX, TROPI ####[address] [address] Erythrocytes (RBC) NOT REPORTEDNormalMemorial Health System Marietta Memorial HospitalComment on above:Performed By: #### CDP, BMPX, TROPI ####[address] [address] Granulocytes/100 WBC (Bld)NOT REPORTEDNormal0.00-0.30[facility] HospitalComc.s. [facility] on above:Performed By: #### CDP, BMPX, TROPI ####[address] [address] Immature granulocytes #/vol (Bld)NOT XURVXMPKYopwfa8Quzvx[address] [place] [address] on above:Performed By: #### CDP, BMPX, TROPI ####[address] [address] PlateletsNOT REPORTEDNormOhioHealth Shelby HospitalComc.s. [facility] on above:Performed By: #### CDP, BMPX, TROPI ####[address] [address] WBC Morphology NOT REPORTEDNormalMemorial Health System Marietta Memorial HospitalComment on above:Performed By: #### CDP, BMPX, TROPI ####[address] [address] Troponinon 35-72-0110Pbhynkui I.cardiac mass concNormalMemorial Health System Marietta Memorial HospitalComc.s. [facility] on above:Result Comment: Reference Range: <0.03 Within reference range. 0.03-0.09 Possible myocardial damage.Repeat at appropriate intervals to rule out chronic elevation. >= 0.10 Indicative of myocardial damage.Patients with high levels of Biotin oral intake (i.e >5mg/day) may have falsely decreased Troponin T levels. Samples collected within 8 hours of biotin intake may require additional information for diagnosis.Performed at [address] [address] ([phone] By: #### CDP, BMPX, TROPI ####[address] [address] Troponin T.cardiac mass concug/LNormal<0.03[facility] on above:Result Comment: Troponin T results cannot be compared to Troponin-I results.Performed By: #### CDP, BMPX, TROPI ####[address] [address] Troponin I.cardiac mass concNormalMemorial Health System [facility] Comment on above:Result Comment: Reference Range: <0.03 Within reference range. 0.03-0.09 Possible myocardial damage.Repeat at appropriate intervals to rule out chronic elevation. >= 0.10 Indicative of myocardial damage.Patients with high levels of Biotin oral intake (i.e >5mg/day) may have falsely decreased Troponin T levels. Samples collected within 8 hours of biotin intake may require additional information for diagnosis.Performed at [facility] [address] [facility] [place] [address] [phone] By: #### TROPI ####[facility] [place] [address] Troponin T.cardiac mass concug/LNormal<0.03[facility] HospitalComment on above:Result Comment: Troponin T results cannot be compared to Troponin-I results.Performed By: #### TROPI ####[facility] [facility] [place] [address] XR CHEST (2 VW)on [id number] CHEST (2 VW)EXAMINATION:TWO VIEWS OF THE CHEST, [...] cardiopulmonary findings.Interpreted by:FABIANA Oliverigned by:Zaire Dominguez MD5/6/18Final resultNormOhioHealth Shelby Hospital Basic Metab w/rfx MGon 06-28-2017(cont.)NormalMemorial Health System Marietta Memorial HospitalComment on above:Result Comment: Average GFR for 70 or more years old: 75 mL/min/1.73sq mChronic Kidney Disease: <60 mL/min/1.73sq mKidney failure: <15 mL/min/1.73sq meGFR calculated using average adult body mass. Additional eGFR calculator available at:http://www.[employer]/multiple_crcl_2012.htmPerformedat [address] [address] Performed By: #### CDP, BMPX ####[address] [address] Anion gap13 mmol/LNormal9-17[facility] HospitalComment on above:Performed By: #### CDP, BMPX ####[address] [address] Wwcvmpt3.7 mg/dLNormal 8.6-10.4[facility] HospitalComment on above:Performed By: #### CDP, BMPX ####[address] [address] Loypxbkf008 mmol/JJuhxgx95-267NdpgxMemorial Health System Marietta Memorial HospitalComment on above: Performed By: #### CDP, BMPX ####[address] [address] NW207 mmol/WZimhil62-88DctzzMemorial Health System Mari[facility] Memorial HospitalComc.s. [facility] on above:Performed By: #### CDP, BMPX ####[address] [address] Wopnrekbeu1.53 mg/dLNormal 0.50-0.90[facility] HospitalComment on above:Performed By: #### CDP, BMPX ####[address] [address] eGFR (non-black)mL/min/{1.73_m2}Normal>60[facility] HospitalComment on above:Performed By: #### CDP, BMPX ####[address] [address] Glucose mass faen682 mg/fSIefw67-49YzqbhRegency Hospital ToledoComment on above:Performed By: #### CDP, BMPX ####[address] [address] Potassium molar conc3.7 mmol/LNormal3.7-5.3MWood County HospitalComment on above:Performed By: #### CDP, BMPX ####[address] [address] Riljpz560 mmol/MFrwqtv307-928BzuonAshtabula General HospitalComment on above:Performed By: #### CDP, BMPX ####[address] [address] Urea rrihgzpi62 mg/dLNormal8-23[facility] HospitalComment on above:Performed By: #### CDP, BMPX ####[address] [address] BUN/CRE RatioNOT REPORTEDNormal9-20[facility] HospitalComment on above:Performed By: #### CDP, BMPX ####[address] [address] Staging:NOT REPORTEDNormalMemorial Health System Marietta Memorial HospitalComment on above:Performed By: #### CDP, BMPX ####[address] [address] Basic Metabolic Profon 06-28-2017(cont.)Normal [facility] HospitalComment on above:Result Comment: Average GFR for 70 or more years old: 75 mL/min/1.73sq mChronic Kidney Disease: <60 mL/min/1.73sq mKidney failure: <15 mL/min/1.73sq meGFR calculated using average adult body mas s. Additional eGFR calculator available at:http://www.[employer]/multiple_crcl_2012.htmPerformedat [facility] [address] [place] [address] Performed By: #### CDP, BMP, TROPI, TSHX ####[address] [address] Anion gap13 mmol/LNormal9-17[facility] HospitalComment on above:Performed By: #### CDP, BMP, TROPI, TSHX ####[address] [place] [address] Sqcgymd1.2 mg/dL Normal8.6-10.4[facility] HospitalComment on above:Performed By: #### CDP, BMP, TROPI, TSHX ####[address] [place] [address] Wthzpdqd330 mmol/GEcghyd75-301FiulzMemorial Health System Marietta Memorial HospitalComment on above:Performed By: #### CDP, BMP, TROPI, TSHX ####[address] [place] [address] BQ262 mmol/HMpqwxl15-63 [facility] HospitalComment on above:Performed By: #### CDP, BMP, TROPI, TSHX ####[address] [place] [address] Syohsfluuq2.61 mg/dLNormal0.50-0.90[facility] Comment on above:Performed By: #### CDP, BMP, TROPI, TSHX ####[address] [address] eGFR (non-black) mL/min/{1.73_m2}Normal>60[facility] Medical CenterComment on above:Performed By: #### CDP, BMP, TROPI, TSHX ####[address] [address] Glucose mass axxq810 mg/mGMvrj69-09Erczx [facility] CenterComment on above:Performed By: #### CDP, BMP, TROPI, TSHX ####[address] [address] Potassium molar conc4.7 mmol/LNormal3.7-5.3[facility] CenterComment on above:Performed By: #### CDP, BMP, TROPI, TSHX ####[address] [address] Uzyaes858 mmol/LNormal 135-144Mer[facility] CenterComment on above:Performed By: #### CDP, BMP, TROPI, TSHX ####[address] [address] Urea jlyjyxfu85 mg/dLNormal8-23[facility] Comment on above:Performed By: #### CDP, BMP, TROPI, TSHX ####[address] [address] BUN/CRE RatioNOT REPORTED Normal9-20MerAshtabula General HospitalComment on above:Performed By: #### CDP, BMP, TROPI, TSHX ####[address] [place] [address] Staging:NOT REPORTEDNormalMercy [facility] Parma Medical CenterComment on above:Performed By: #### CDP, BMP, TROPI, TSHX ####[address] [address] CBC with Diffon 06-28-2017 Abs. Basophil0.00 k/uLNormal0.0-0.2[facility] CenterComment on above: Result Comment: Performed at [address] [address] Performed By: #### CDP, BMPX ####[address] [address] Abs.Neutrophil (Seg)5.50 k/uLNormal1.3-9.1[facility] CenterComment on above:Performed By: #### CDP, BMPX ####[address] [address] Basophils/100 WBC Auto (Bld)1 %Normal0-2[facility] CenterComment on above:Performed By: #### CDP, BMPX ####[address] [address] Hzmwfpvhdon0.10 10*3/uL Normal0.0-0.4[facility] HospitalComment on above:Performed By: #### CDP, BMPX ####[address] [phone]/100 leukocytes2 %Normal0-4[facility] HospitalComment on above:Performed By: #### CDP, BMPX ####[address] [address] Erythrocyte distribution width Auto Ratio (RBC) 14.8 %Ljwftr26.5-14.9[facility] HospitalComment on above:Performed By: #### CDP, BMPX ####[address] [place] [address] Erythrocytes (RBC)4.47 10*6/uLNormal4.0-5.2[facility] CenterComment on above:Performed By: #### CDP, BMPX ####[address] [address] Hematocrit (HCT)39.8 % Jjgioj90-39QvrqzAshtabula General HospitalComment on above:Performed By: #### CDP, BMPX ####[address] [phone] mass conc (Bld)13.3 g/rSZctgtc75.0-16.0MerAshtabula General HospitalComment on above:Performed By: #### CDP, BMPX ####[address] [address] Exhkhwonhdg9.90 10*3/uL Normal1.0-4.8MerAshtabula General HospitalComment on above:Performed By: #### CDP, BMPX ####[address] [phone]/100 kvrhqyqncr38 %Sbs76-95HcdjhMemorial Health System Marietta Memorial HospitalComment on above:Performed By: #### CDP, BMPX ####[address] [address] TTS31.7 sdOemsvm22-24MtuulAshtabula General Hospital Comment on above:Performed By: #### CDP, BMPX ####[address] [address] MCHC mass conc (RBC)33.3 g/dLNormal 31-37MerAshtabula General HospitalComment on above:Performed By: #### CDP, BMPX ####[address] [address] MCV 89.1 qJUotfeh94-006DkdqsMemorial Health System Marietta Memorial HospitalComment on above:Performed By: #### CDP, BMPX ####[address] [address] Qbrcrknod7.50 10*3/uLNormal0.1-1.3MWood County Hospital Comment on above:Performed By: #### CDP, BMPX ####[address] [address] Monocytes/100 leukocytes6 %Normal1-7 [facility] HospitalComment on above:Performed By: #### CDP, BMPX ####[address] [address] Neutrophil (Seg)68 %Covw75-78ZnqtyMemorial Health System Marietta Memorial HospitalComment on above: Performed By: #### CDP, BMPX ####[address] [address] Platelet mean volume (PMV)8.6 fLNormal6.0-12.0 [facility] HospitalComment on above:Performed By: #### CDP, BMPX ####[address] [address] Gseadmkrt274 10*3/jACegzme072-367ZodbbMemorial Health System Marietta Memorial HospitalComment on above: Performed By: #### CDP, BMPX ####[address] [address] WBC (Leukocytes)8.0 10*3/uLNormal3.5-11.0[facility] HospitalComment on above:Performed By: #### CDP, BMPX ####[address] [address] Auto Diff PerformedNOT REPORTEDNormalMckitrick Hospitalcy [facility] Medical CenterComment on above:Performed By: #### CDP, BMPX ####[address] [address] Erythrocyte morphologyNOT REPORTEDNormalMemorial Health System Mari[facility] Memorial HospitalComc.s. [facility] on above:Performed By: #### CDP, BMPX ####[address] [address] Erythrocytes (RBC)NOT REPORTEDNormalMercy Metrohealth Parma Medical CenterComment on above:Performed By: #### CDP, BMPX ####[address] [phone]/100 WBC (Bld)NOT REPORTEDNormal0.00-0.30[facility] CenterComment on above:Performed By: #### CDP, BMPX ####[address] [address] Immature granulocytes #/vol (Bld)NOT RUWLZXCTBxvtdq4RmporMemorial Health System Marietta Memorial HospitalComment on above: Performed By: #### CDP, BMPX ####[address] [address] PlateletsNOT REPORTEDNormalMemorial Health System Mari[facility] Memorial HospitalComc.s. [facility] on above:Performed By: #### CDP, BMPX ####[address] [address] WBC MorphologyNOT REPORTED NormalMemorial Health System Marietta Memorial HospitalComc.s. [facility] on above:Performed By: #### CDP, BMPX ####[address] [address] Abs. Basophil0.10 k/uLNormal0.0-0.2[facility] CenterComment on above:Result Comment: Performed at [address] [address] Performed By: #### CDP, BMP, TROPI, TSHX ####[address] [address] Abs.Neutrophil (Seg)4.20 k/uLNormal1.3-9.1[facility] CenterComment on above:Performed By: #### CDP, BMP, TROPI, TSHX ####[address] [address] Basophils/100 WBC Auto (Bld)1 %Normal0-2[facility] CenterComment on above:Performed By: #### CDP, BMP, TROPI, TSHX ####[address] [address] Emyumlcrrrc8.20 10*3/uLNormal0.0-0.4[facility] Comment on above:Performed By: #### CDP, BMP, TROPI, TSHX ####[address] [address] Eosinophils/100 leukocytes 2 %Normal0-4MerAshtabula General HospitalComment on above:Performed By: #### CDP, BMP, TROPI, TSHX ####[address] [address] Erythrocyte distribution width Auto Ratio (RBC)14.7 %Normal 11.5-14.9MerAshtabula General HospitalComment on above:Performed By: #### CDP, BMP, TROPI, TSHX ####[address] [address] Erythrocytes (RBC)4.38 10*6/uLNormal4.0-5.2[facility] CenterComment on above:Performed By: #### CDP, BMP, TROPI, TSHX ####[address] [address] Hematocrit (HCT) 38.7 %Yuvslh32-11WpdzhAshtabula General HospitalComment on above:Performed By: #### CDP, BMP, TROPI, TSHX ####[address] [address] Hemoglobin mass conc (Bld)12.9 g/bYZsrwmt05.0-16.0MerAshtabula General HospitalComment on above:Performed By: #### CDP, BMP, TROPI, TSHX ####[address] [address] Lymphocytes2.60 10*3/uLNormal1.0-4.8MerAshtabula General HospitalComment on above: Performed By: #### CDP, BMP, TROPI, TSHX ####[address] [address] Lymphocytes/100 zkfpomqsgh87 %Normal 24-44MerAshtabula General HospitalComment on above:Performed By: #### CDP, BMP, TROPI, TSHX ####[address] [address] FUB93.6 iiUlfghe95-16VwzimAshtabula General HospitalComment on above:Performed By: #### CDP, BMP, TROPI, TSHX ####[address] [address] MCHC mass conc (RBC)33.4 g/yZDuvgmu85-23JikgvAshtabula General HospitalComment on above:Performed By: #### CDP, BMP, TROPI, TSHX ####[address] [address] FIF67.4 vTPgqbtu39-159JriwcAshtabula General HospitalComment on above:Performed By: #### CDP, BMP, TROPI, TSHX ####[address] [address] Liconjcje6.60 10*3/uL Normal0.1-1.3MWood County HospitalComment on above:Performed By: #### CDP, BMP, TROPI, TSHX ####[address] [address] Monocytes/100 leukocytes8 %High1-7[facility] Comment on above:Performed By: #### CDP, BMP, TROPI, TSHX ####[address] [address] Neutrophil (Seg)55 %Normal 36-66[facility] HospitalComment on above:Performed By: #### CDP, BMP, TROPI, TSHX ####[address] [address] Platelet mean volume (PMV)8.6 fLNoal6.0-12.0[facility] HospitalComment on above:Performed By: #### CDP, BMP, TROPI, TSHX ####[address] [address] Zyvbarenh826 10*3/iPPvtauh107-506BymxkAshtabula General HospitalComment on above:Performed By: #### CDP, BMP, TROPI, TSHX ####[address] [address] WBC (Leukocytes)7.7 10*3/uLNormal3.5-11.0[facility] HospitalComment on above:Performed By: #### CDP, BMP, TROPI, TSHX ####[address] [address] Auto Diff PerformedNOT REPORTEDNormalMercy [facility]health Parma Medical CenterComment on above: Performed By: #### CDP, BMP, TROPI, TSHX ####[address] [address] Erythrocyte morphologyNOT REPORTED NormalMemorial Health System Marietta Memorial HospitalComment on above:Performed By: #### CDP, BMP, TROPI, TSHX ####[address] [place] [address] Erythrocytes (RBC)NOT REPORTEDNormalMercy [facility] on above:Performed By: #### CDP, BMP, TROPI, TSHX ####[address] [address] Granulocytes/100 WBC (Bld) NOT REPORTEDNormal0.00-0.30MerAshtabula General HospitalComment on above:Performed By: #### CDP, BMP, TROPI, TSHX ####[address] [address] Immature granulocytes #/vol (Bld)NOT REPORTED Vdrrmj1PtrejLicking Memorial Hospitalment on above:Performed By: #### CDP, BMP, TROPI, TSHX ####[address] [phone] REPORTEDNormalMemorial Health System [facility] Memorial HospitalComment on above:Performed By: #### CDP, BMP, TROPI, TSHX ####[address] [address] WBC MorphologyNOT REPORTED NormalVan Wert County Hospital on above:Performed By: #### CDP, BMP, TROPI, TSHX ####[address] [phone] 63-33-1826Vnpcasae0.7 ug/dLNormal2.7-18.4[facility] HospitalComc.[facility] on above:Result Comment: Cortisol Reference Range: AM 6.0-18.4 PM 2.7-10.5Performed at [address] [address] Performed By: #### CORTI ####[address] [address] #### AALD, AREN ####[address] [place] [address] Collection Info.NOT REPORTEDNoElyria Memorial HospitalComc.s. [facility] on above:Performed By: #### CORTI ####[address] [address] #### AALD, AREN ####[address] [address] Renin Activityon [id number]:NOT REPORTEDNoElyria Memorial HospitalComc.s. [facility] on above:Performed By: #### CORTI ####[address] [address] #### AALD, AREN ####[address] [address] TSH w/reflex to FT4on [id number] stimulating hormone (TSH)2.65 m[IU]/LNormal 0.30-5.00[facility] HospitalComc.s. [facility] on above:Result Comment: Performed at [address] [address] [phone] By: #### CDP, BMP, TROPI, TSHX ####[address] [place] [address] Troponinon 06-28-2017 Troponin I.cardiac mass concNoElyria Memorial HospitalComc.s. [facility] on above: Result Comment: Reference Range: <0.03 Within reference range. 0.03-0.09 Possible myocardial damage.Repeat at appropriate intervals to rule out chronic elevation. >= 0.10 Indicative of myocardial damage.Patients with high levels of Biotin oral intake (i.e >5mg/day) may have falsely decreased Troponin T levels. Samples collected within 8 hours of biotin intake may require additional inform ation for diagnosis.Performed at [address] [address] [phone] By: #### TROPI ####[address] [address] Troponin T.cardiac mass concug/LNormal<0.03[facility] HospitalComment on above:Result Comment: Troponin T results cannot be compared to Troponin-I results.Performed By: #### TROPI ####[address] [address] Troponin I.cardiac mass concNormalMerAshtabula General Hospital Comment on above:Result Comment: Reference Range: <0.03 Within reference range. 0.03-0.09 Possible myocardial damage.Repeat at appropriate intervals to rule out chronic elevation. >= 0.10 Indicative of myocardial damage.Patients with high levels of Biotin oral intake (i.e >5mg/day) may have falsely decreased Troponin T levels. Samples collected within 8 hours of biotin intake may require additional information for diagnosis.Performed at [address] [address] [phone] By: #### TROPI ####[address] [address] Troponin T.cardiac mass concug/LNormal<0.03[facility] HospitalComc.s. [facility] on above:Result Comment: Troponin T results cannot be compared to Troponin-I results.Performed By: #### TROPI ####[address] [address] Troponin I.cardiac mass concNormalMerAshtabula General HospitalComment on above:Result Comment: Reference Range: <0.03 Within reference range. 0.03-0.09 Possible myocardial damage.Repeat at appropriate intervals to rule out chronic elevation. >= 0.10 Indicative of myocardial damage.Patients with high levels of Biotin oral intake (i.e >5mg/day) may have falsely decreased Troponin T levels. Samples collected within 8 hours of biotin intake may require additional information for diagnosis.Performed at [address] [address] [phone] By: #### CDP, BMP, TROPI, TSHX ####[address] [phone] T.cardiac mass concug/LNormal<0.03[facility] HospitalComment on above:Result Comment: Troponin T results cannot be compared to Troponin-I results.Performed By: #### CDP, BMP, TROPI, TSHX ####[address] [phone] w/Reflex Cultureon 30-29-7918Oovbaktqmvztu mass conc NegativeNormalNEGMemorial Health System Marietta Memorial HospitalComment on above:Performed By: #### UAX ####[address] [address] Bilirubin (direct)NegativeNormalNEGMemorial Health System Marietta Memorial HospitalComment on above: Performed By: #### UAX ####[address] [phone] exam not performed based on chemical results unless requested inNormalMemorial Health System Marietta Memorial HospitalComc.s. [facility] on above: Result Comment: original order.Performed at [address] [address] [phone] By: #### UAX ####[address] [address] Hemoglobin mass conc (Bld)NegativeNormalNEGMercy Metrohealth Parma Medical CenterComment on above: Performed By: #### UAX ####[address] [phone],UrNegativeNormalNEGMercy Metrohealth Parma Medical CenterComment on above:Performed By: #### UAX ####[address] [phone]RMercy [facility] Parma Medical CenterComment on above:Performed By: #### UAX ####[address] [phone], colorYELLOWNormal YELMercy [facility]health Parma Medical CenterComment on above:Performed By: #### UAX ####[address] [phone], glucose presenceNegativeNormalNEGMckitrick Hospitalcy [facility] Medical CenterComment on above:Performed By: #### UAX ####[address] [phone], leukocyte esterase presenceNegativeNormalNEGMemorial Health System Marietta Memorial HospitalComment on above:Performed By: #### UAX ####[address] [phone], pH5.5 [pH]Normal 5.0-8.0MerAshtabula General HospitalComc.s. [facility] on above:Performed By: #### UAX ####[address] [address] Urine, protein presenceNegativeNormalNEGMemorial Health System Marietta Memorial HospitalComment on above:Performed By: #### UAX ####[address] [address] Urine, specific gravity1.024Alxugk1.000-1.030 [facility] HospitalComment on above:Performed By: #### UAX ####[facility] [place] [address] Urobilinogen,Ur NormalNormalNORMMercy Metrohealth Parma Medical CenterComment on above:Performed By: #### UAX ####[facility] [place] [address] Vital Signs Date TimeVital SignValuePerforming LtoxwqwprPcodcadl81-48-7344 10:25-0500Body eenpze868.56 cmMD Velasquez Talkitoy Work Phone: [phone] [place], [place] 6410902-13-2024 10:25-0500 Body mass index (BMI) [Ratio]26.7 kg/m2MD Velasquez Talkitoy Work Phone: [phone] [place], [place] 6410902-13-2024 10:25-0500 Body fswytk61.76 kgMD Velasquez Talkitoy Work Phone: [phone]08-22-2020 15:45-0400 BP Qaajlwhdm91 mm[Hg]Formerly [facility], VN85-22-4539 15:45-0400BP Oyrrovcp767 mm[Hg]Formerly [facility], UW33-83-4087 08:25-0400Body Yzoompcihyd79.01 [degF]Formerly [facility], [id number] 08:25-0400 Pulse (Heart Rate)70 /minCoAvita Health System, DC77-49-8486 08:25-0400 Pulse Lbrftacg12 %Formerly [facility], BJ17-00-0763 08:25-0400 Respiratory Rate20 /minCoAvita Health System, IP29-39-6916 06:15-0400BMI (Body Mass Index)25.51 kg/y6OctgaogfFormerly [facility], PY17-30-4961 06:15-0400Body .4 kgCoemerald [facility], DT73-98-9436 15:22-5056Upjuhk738.6 cmCourtronald [facility], AC21-87-1866 16:07-0400 Respiratory rateNOT REPORTEDRANMcKitrick Hospital Comment on above:Performed By: #### CDP, CP, LIP, TROPI, LIPRF, GLYHGB #### [facility] [address] [place] [address] Mottler Operator: Brandon Anaya MD08-19-2020 14:24-0400Respiratory rateNOT REPORTEDCoAvita Health System, [place] Encounters Encounter DateEncounter TypeCare ProviderFacilityStart: 12-22-2024 End: 14-98-8623xisjtheyraWNCDBAvita Health System Galion Hospitaltart: 02-40-5515Uaryszfnjn and management of inpatientMUNIER NAZZSOUTHWEST GENERAL HEALTH CENTERniversity [facility] Hospitaltart: 08-26-2024 End: 57-06-1299Vemyhgtacf and management of inpatientMUNIER NAZZSOUTHWEST GENERAL HEALTH CENTERniTrinity Health System East Campustart: 08-17-2024 End: 04-05-8035cmhntbqdalJcwoxfs M HoyFacility:[facility] Start: 08-04-2024 End: 60-81-1633jeyvgrswyrPKZPDY NAZZCorey Hospitaltart: 07-22-2024 End: 85-95-4690ktpyrcxrlvWLZCIFHOhioHealth Pickerington [facility] Start: 53-16-8498vxbjlrlgvmZZJFRAvita Health System Galion Hospitaltart: 65-35-6591idrulgrreqQIMDVIBAshtabula General Hospitaltart: 06-06-2024 End: 23-50-8314xqrqhnypzpXYXCQO NAZZCorey Hospitaltart: 06-06-2024 End: 66-97-9110gkqzhapuwpWZWMHO NAZZCorey Hospitaltart: 05-31-2024 End: 64-47-2424qzefkcqcqoTRNJBQH [facility] Start: 05-20-2024 End: 34-28-6732acqvcfskopDTVIS A PETITTINot AvailableStart: 05-20-2024 End: 10-12-9182Ykjrrc outpatient visit 25 minutesEmminerva Red MD Work Phone: noms [facility] DERMComment on above:Other atopic dermatitis (Primary Dx); High risk medication useStart: 05-20-2024 End: 37-38-6150Kfdejxcandi Red MD Work Phone: noMS SWS DERMStart: 05-20-2024 End: 61-18-2210Nbtlxu flowsWilfredo Red MD Work Phone: noms [facility] DERMStart: 25-60-4038shshnjbpabRSSLRegional Medical Centertart: 05-11-2024 End: 40-90-3755jhsbcefhydEAPZZ AKRASouthern Ohio Medical Centertart: 41-40-6790vvncuraxocTFCXIPZ [facility] Centertart: 03-26-2024 End: 02-62-7078zqfmmtkrgyMHUDW KHOhioHealth Grove City Methodist Hospitaltart: 03-09-2024 End: 03-35-7319frutlbjeilFNZK [facility] Hospitaltart: 26-05-2077enhpftrbcmBYVY REBECCASalem Regional Medical Centertart: 06-14-8763Tzbxcyvygy and management of inpatientOMAR [facility] Hospitaltart: 49-90-7416Glldxlmbcc and management of inpatientSHOBHA [facility] Centertart: 21-25-0925Meoogtzphs and management of inpatientSHOBHA [facility] Centertart: 24-81-4359Evbzkeekin and management of inpatientKIMBERLY [facility] Hospitaltart: 83-93-5302Prvkihmbsd and management of inpatientZAID NOMarietta Osteopathic Clinictart: 59-40-2284Mkyvhpsjqh and management of inpatientTHOMAS D OWEISUPeoples Hospitaltart: 75-29-4084Rvmwouqcgt and management of inpatientZAID NOMarietta Osteopathic Clinictart: 96-33-7760Qfvjzfijrr and management of inpatientZAID GEMAMercy Hospitaltart: 01-53-1346Levrtvwfuu and management of inpatientWHITNEY BEACHSycamore Medical Centertart: 02-02-2024 Evaluation and management of inpatientNASIR ALITogus VA Medical Centertart: 05-34-4357Siwfigshbi and management of inpatientOMAR [facility] Centertart: 02-02-2024 End: 82-63-4754Ujibngprpd and management of inpatientOMAR [facility] Hospitaltart: 02-01-2024 End: 37-20-1865nzafcxqmbiTSYDYI AYAHZZALUniTrinity Health System East Campustart: 55-15-8831Zuhfbtrmdc and management of inpatientJAMIE VENKATESHERTogus VA Medical Centertart: 31-55-2806Apaqmsynzo and management of inpatient RYNE NIGELLEYTogus VA Medical Centertart: 48-01-6582Ozyayywtk department patient visitMercy Health [facility] Start: 13-79-9219Zaqqhhqek department patient visitCleveland Clinictart: 01-27-2024 End: 73-92-1900Nkddhmiaoz and management of inpatientOMAR [facility] Hospitaltart: 14-08-8877yaqhfexdspWJJOOFP PERSumma Health Wadsworth - Rittman Medical Centertart: 01-16-2024 End: 47-09-0942Lmuovqcandi HARRIS Work Phone: NOMS SWS DERMStart: 01-16-2024 End: 71-39-4732Wnnqxocandi HARRIS Work Phone: noms SWS DERMStart: 01-16-2024 End: 86-05-0078Iauwuf outpatient visit 25 minutesRyernesto Ta PA Work Phone: noms [facility] DERMComment on above:Other atopic dermatitis (Primary Dx)Start: 01-16-2024 End: 41-17-1944dudytkmxnuDHKXY NORTHEIMNot AvailableStart: 12-31-2023 End: 36-94-9662kugtvxfxgvWSVYOAvita Health System Galion Hospitaltart: 04-17-2023 End: 28-89-5488qzozglmidlXI Velasquez M Hoy Work Phone: [facility] Work Phone: Start: 04-17-2023 End: 17-63-6674Toxutzi encounter procedureMD Velasquez Hoy Work Phone: [phone] [place] [address] [employer]-Liz-Mocmlidj Testing Work Phone: Start: 04-08-2023 End: 43-81-8334extfygbzfiOW Velasquez M Hoy Work Phone: [facility] Work Phone: Start: 04-08-2023 End: 18-66-5479Cfpzrpl encounter procedureMD Velasquez Hoy Work Phone: [phone] [place] [address] [facility] Work Phone: Start: 04-08-2023 End: 42-52-5251zemoxpffniZT Velasquez M Hoy Work Phone: [facility] Work Phone: Start: 04-08-2023 End: 56-66-0818Eakabfe encounter procedureMD Velasquez Hoy Work Phone: [facility] Start: 05-12-9697ucjjpbgjipJM VELASQUEZ HOY .Facility:K6Mdmar: 05-29-2022 End: 64-22-0796xdslhyfaqyOL VELASQUEZ HOY .Facility:R1Uaklq: 03-07-2022 End: 45-59-1624nuedkgyuavHJ VELASQUEZ HOY .Facility:W5Lnsmo: 02-06-2022 End: 22-09-3553sxdcechaadJE DOUGLAS HOY .Facility:J7Njfxv: 13-51-5091wgblqmdvxs DR VELASQUEZ BUNCH .Facility:C3Qnrrw: 10-09-2019 End: 68-71-0452Qogrduoswm and management of inpatientRANVIR S RATHOREMercy [facility] Centertart: 10-09-2019 End: 97-97-1397Cscffprqsh and management of inpatientCoemerald Mercado Work Phone: stvz CAR 2Comment on above:Abdominal aortic aneurysm (AAA) without rupture (HCC) (Primary Dx); Acute low back pain, unspecified back pain laterality, unspecified whether sciatica present; Vertigo; Nausea and vomiting, intractability of vomiting not specified, unspecified vomiting type; Hypertensive urgencyStart: 06-27-2017 End: 11-92-8779Liittvmayg and management of inpatientDOUGLAS James FONTAINEYMlizet [facility] Procedures DateProcedureProcedure DetailPerforming ClinicianStart: 33-00-6083Yzeaxr-up visitOMAR HORANIStart: 90-32-2144Oddzgi-up visitOMAR HORANIStart: 03-26-2024 Follow-up visitOMAR HORANIStart: 82-34-8389Yrafpb-up visitOMAR HORANIStart: 31-59-4913Hwvczu-up visitOMAR HORANIStart: 30-29-2135Cigrfv-up visitOMAR HORANI Start: 48-08-4964Rhgsk X-ray of right handMD Velasquez Bunch Work Phone: Start: 52-35-3039Uapmu count complete auto&auto difrntl wbcRANVIR RATHOREStart: 43-22-7611Blhzhibhbiars metabolic panelRANVIR RATHOREStart: 53-73-5635Wzwdrdc bacterial quanttative colony count urineRANVIR RATHOREStart: 94-09-1779Shrab dip stick/tablet reagent auto microscopyRANVIR RATHOREStart: 17-98-2300Ttasrqj blood reagent stripRANVIR RATHOREStart: 79-62-5350RCJAFODEY PATIENTRANVIR RATHOREStart: 37-97-9240Qmcqj dip stick/tablet reagent auto microscopyJojonathan Bazan Work Phone: Start: 34-87-1233WG CONSULT TO HOME CARE NEEDSRANVIR RATHOREStart: 87-57-5632Tsohymw blood reagent stripRanvir S Judie Work Phone: Start: 34-79-6596HGINNCR SCANRANVIR RATHOREStart: 42-15-2388PG CONSULT TO UROLOGYRANVIR RATHOREStart: 22-82-5670Muui bld gluc mntr dev cleared fda spec home useRANVIR RATHOREStart: 83-05-9998Hchargq blood reagent stripRANVIR RATHOREStart: 47-44-9462WYMVIPVZ OXYGEN THERAPY PROTOCOL GIOVANNA RATHOREStart: 10-16-2019 End: 01-90-7927Nlxlwqk blood reagent stripRanvir S Judie Work Phone: Start: 26-63-9491Qhejj count complete auto&auto difrntl wbcRANVIR RATHOREStart: 07-18-7929Znigyyxrqutqt metabolic panelRANVIR RATHOREStart: 73-71-9470Jlau bld gluc mntr dev cleared fda spec home useRANVIR RATHOREStart: 06-96-1402WDZPB METABOLIC PANEL W/ REFLEX TO MG FOR LOW K Muralikrishna Porandla Work Phone: Start: 14-78-3646Jupxv count complete auto&auto difrntl wbcMuralikrishna Porandla Work Phone: Start: 10-56-2068JZIGUP AND OUTPUTRANVIR RATHOREStart: 41-77-7576Ffrb bld gluc mntr dev cleared fda spec home useRANVIR RATHOREStart: 93-35-5803Ibcmhoo blood reagent stripRANVIR RATHOREStart: 39-19-5393Zfqs bld gluc mntr dev cleared fda spec home useRANVIR RATHOREStart: 70-43-5983Igjjufq blood reagent stripRanvir S Judie Work Phone: Start: 96-83-5557Vumaeac blood reagent stripRANVIR RATHOREStart: 48-55-2344QAQSRMOQ CATHRANVIR RATHOREStart: 43-71-6703RFHFFUF NUTRITION SUPPLEMENTSRANVIR RATHOREStart: 89-09-6669Iss spinal canal lumbar w/o & w/contr matrlRANVIR RATHOREStart: 08-12-0847Jrzxalf blood reagent stripRanvir S Judie Work Phone: Start: 64-60-2085Gtq spinal canal lumbar w/o & w/contr matrlMuralikrishna Porandla Work Phone: Start: 70-46-9231Xtwfsdt blood reagent stripRANVIR RATHOREStart: 94-87-9457Xcywteg blood reagent stripRanvir S Judie Work Phone: Start: 25-84-1505Ilgjj count complete auto&auto difrntl wbcRANVIR RATHOREStart: 66-61-0810Eyapsnnlcwofr metabolic panelRANVIR RATHOREStart: 87-38-9814Owyc bld gluc mntr dev cleared fda spec home useRANVIR RATHOREStart: 94-96-8420WVCDZFHH CATHRANVIR RATHOREStart: 95-44-3531RTNUE METABOLIC PANEL W/ REFLEX TO MG FOR LOW KMuralikrishna Porandla Work Phone: Start: 48-21-1605Sscvw count complete auto&auto difrntl wbcMuralikrishna Porandla Work Phone: Start: 02-69-0385VC CONSULT TO IV TEAMRANVIR JUDIE Start: 00-14-6106HSEEWSWX OXYGEN THERAPY PROTOCOLRANVIR RATHOREStart: 10-15-2019 Glucose blood reagent stripRANVIR RATHOREStart: 59-53-6616Shoxozk blood reagent stripRanvir S Judie Work Phone: Start: 48-33-7892Znnz bld gluc mntr dev cleared fda spec home useRANVIR RATHOREStart: 22-68-7524IQBLCF AND OUTPUTRANVIR JUDIE Start: 41-38-7550Bfre bld gluc mntr dev cleared fda spec home useRANVIR JUDIE Start: 39-41-1591Nxeotqh blood reagent stripRANVIR RATHOREStart: 81-56-4553Pvqb bld gluc mntr dev cleared fda spec home useRANVIR RATHOREStart: 10-14-2019 Glucose blood reagent stripRanvir S Judie Work Phone: Start: 99-23-0247ZJKBEFKV CATHRANVIR RATHOREStart: 35-28-9523Erucmjg blood reagent stripRanvir S Judie Work Phone: Start: 25-33-5352Voxkckx blood reagent stripRANVIR RATHOREStart: 14-98-0973Ghexyfj blood reagent stripRanvir S Judie Work Phone: Start: 34-22-6678Rebs bld gluc mntr dev cleared fda spec home useRANVIR RATHOREStart: 85-92-8703AHNTLTKI OXYGEN THERAPY PROTOCOL GIOVANNA RATHOREStart: 15-18-6914LTFPHZFN CATHRANVIR RATHOREStart: 10-14-2019 Antibody treponema pallidumRANVIR RATHOREStart: 69-94-7226Neqay count complete auto&auto difrntl wbcRANVIR RATHOREStart: 90-14-5917Fkrkjdqgxrcni metabolic panelRANVIR RATHOREStart: 24-92-8383Ftrsqnd blood reagent stripRANVIR JUDIE Start: 14-35-6159Eqvv bld gluc mntr dev cleared fda spec home useRANVIR JUDIE Start: 49-93-2067ZDBHJ METABOLIC PANEL W/ REFLEX TO MG FOR LOW KMuralikrishna Porandla Work Phone: Start: 96-12-2278Uddve count complete auto&auto difrntl wbcMuralikrishna Porandla Work Phone: Start: 10-14-2019T. PALLIDUM ABMuralikrishna Porandla Work Phone: Start: 22-84-6468Zxfhasx blood reagent stripRanvir S Judie Work Phone: Start: 10-89-9030FGMDIY AND OUTPUTRANVIR RATHOREStart: 91-76-2325Weux bld gluc mntr dev cleared fda spec home useRANVIR RATHOREStart: 02-07-1489GKTANEGU CATHRANVIR RATHOREStart: 85-98-0452Acudjhk blood reagent stripRANVIR RATHOREStart: 96-23-4439Maav bld gluc mntr dev cleared fda spec home useRANVIR RATHOREStart: 17-59-2148Oskngxz blood reagent stripRanvir S Judie Work Phone: Start: 71-86-6495Xysjkoe blood reagent stripRANVIR RATHOREStart: 58-04-7844Faiogwi blood reagent stripRanvir S Judie Work Phone: Start: 05-22-3207Sllfm of ammoniaRANVIR RATHOREStart: 66-22-3518Djmfs gases any combination ph pco2 po2 co2 jkh7GCKHBI RATHOREStart: 87-11-2596NG CONSULT TO IV TEAMRANVIR RATHOREStart: 10-58-8248Yiuijwgk mycoplsm GIOVANNA RATHOREStart: 19-62-0383Bqutncm blood reagent stripRanvir S Judie Work Phone: Start: 24-20-4841Gayrn of ammoniaDharmakaruna Edara Work Phone: Start: 01-98-1137Vbbmv gases any combination ph pco2 po2 co2 zgt9Hdoyilnmeuat Edara Work Phone: Start: 04-91-2302Quvlojvw mycoplsmLuis E Kendrick Work Phone: Start: 76-68-9567Sgoy bld gluc mntr dev cleared fda spec home useRANVIR RATHOREStart: 01-44-6942GRMYOCAZ OXYGEN THERAPY PROTOCOL GIOVANNA RATHOREStart: 86-74-9550Akdyfkd blood reagent stripRANVIR RATHOREStart: 18-16-7349Jaxkh of magnesiumRANVIR RATHOREStart: 56-03-1594Oaexa count complete auto&auto difrntl wbcRANVIR RATHOREStart: 23-18-5202Bwyqtiwlcuihg metabolic panelRANVIR RATHOREStart: 98-39-8079Cnkujnc blood reagent stripRanvir S Judie Work Phone: Start: 49-53-3745Sues bld gluc mntr dev cleared fda spec home useRANVIR RATHOREStart: 91-83-4957Qlktm of magnesiumMuralikrishna Porandla Work Phone: Start: 22-58-1063LZDVS METABOLIC PANEL W/ REFLEX TO MG FOR LOW KMuralikrishna Porandla Work Phone: Start: 58-85-2858Fubcg count complete auto&auto difrntl wbcMuralikrishna Porandla Work Phone: Start: 11-02-3633TQINCZ AND OUTPUTRANVIR RATHOREStart: 69-89-1740Sxnq bld gluc mntr dev cleared fda spec home useRANVIR RATHOREStart: 84-90-5326Yohbq dip stick/tablet reagent auto microscopyRANVIR RATHOREStart: 64-48-3353Ktwckoy blood reagent stripRANVIR RATHOREStart: 63-31-3582Wevk bld gluc mntr dev cleared fda spec home useRANVIR RATHOREStart: 68-44-5136Xfiwg dip stick/tablet reagent auto microscopyMuralikrishna Porandla Work Phone: Start: 89-17-8832Uofrsgv blood reagent stripRanvir S Judie Work Phone: Start: 75-50-3913Sceccip blood reagent stripRANVIR RATHOREStart: 43-27-0817UXGG GENERALRANVIR RATHOREStart: 88-54-1311Mxmmxjo blood reagent stripRanvir S Judie Work Phone: Start: 48-91-9722YSTKANW, BLOOD 1RANVIR RATHOREStart: 58-83-0399Eqcdcnx blood reagent stripRANVIR RATHOREStart: 09-35-4856Ujcepca blood reagent stripRanvir S Judie Work Phone: Start: 16-20-8403Fae-scan artl braydon abdl/pel/scrot&/rpr orgn comRANVIR RATHOREStart: 49-63-4391Svjx bld gluc mntr dev cleared fda spec home useRANVIR RATHOREStart: 88-82-2359Fvxxnsa blood reagent stripRANVIR JUDIE Start: 60-80-4131XMRMLEBR OXYGEN THERAPY PROTOCOLRANVIR RATHOREStart: 10-12-2019 Dup-scan artl braydon abdl/pel/scrot&/rpr orgn comMuralikrishna Porandla Work Phone: Start: 64-12-7605Tnhxw of aldosteroneRANVIR JUDIE Start: 87-78-2795Oyire of magnesiumRANVIR RATHOREStart: 70-95-5371Ffgcv of renin GIOVANNA RATHOREStart: 22-20-3478Mlhez count complete auto&auto difrntl wbcRANVIR RATHOREStart: 88-38-3606Ldpipljtdgbka metabolic panelRANVIR RATHOREStart: 48-07-9135Liqymbl blood reagent stripRanvir S Judie Work Phone: Start: 50-85-9105Xeiah of aldosteroneMuralikrishna Porandla Work Phone: Start: 98-58-1581Jeldd of magnesiumMuralikrishna Porandla Work Phone: Start: 71-55-9259Xfvkp of reninMuralikrishna Porandla Work Phone: Start: 08-98-8708TAEOY METABOLIC PANEL W/ REFLEX TO MG FOR LOW KMuralikrishna Porandla Work Phone: Start: 10-83-6411Twmmc count complete auto&auto difrntl wbcMuralikrishna Porandla Work Phone: Start: 26-19-5705Sbij bld gluc mntr dev cleared fda spec home useRANVIR RATHOREStart: 95-54-4017DUZGAS AND OUTPUTRANVIR JUDIE Start: 55-27-6075Yckg bld gluc mntr dev cleared fda spec home useRANVIR JUDIE Start: 25-68-2113Xeslfsxqns exam chest single viewRANVIR RATHOREStart: 88-68-5357PM CONSULT TO INFECTIOUS DISEASESRANVIR RATHOREStart: 14-17-0984Yxutt source albumin quantitative each specimenRANVIR RATHOREStart: 10-11-2019 Radiologic exam chest single viewJovany Quezada Work Phone: Start: 67-05-7342Vomycgd blood reagent stripRANVIR RATHOREStart: 21-86-3740Mjpw bld gluc mntr dev cleared fda spec home useRANVIR RATHOREStart: 61-38-1720JgksdujavflzmBKIQRG RATHOREStart: 25-48-3496Obubuau blood reagent stripRanvir S Judie Work Phone: Start: 43-01-8688Cifqmdf blood reagent stripRanvir S Judie Work Phone: Start: 24-40-3097LgducamurnoegSjkpiyvzkbsvf Arturo Work Phone: Start: 19-94-3962Jvx brain brain stem w/o w/contrast materialRANVIR RATHOREStart: 78-81-9606Piuhcmr blood reagent stripRANVIR JUDIE Start: 48-90-0164Xvd brain brain stem w/o w/contrast materialViry Davalosman Work Phone: Start: 45-65-4805Slyhegl blood reagent stripRanvir S Judie Work Phone: Start: 11-49-3111Ilwj bld gluc mntr dev cleared fda spec home useRANVIR RATHOREStart: 05-89-4506Uqgejcw blood reagent stripRANVIR RATHOREStart: 42-09-0278ULCUPXJC OXYGEN THERAPY PROTOCOLRANVIR RATHOREStart: 82-05-0524Acjumnm blood reagent stripRanvir S Judie Work Phone: Start: 13-41-9972Astuq count complete auto&auto difrntl wbcRANVIR RATHOREStart: 26-46-8030Yrqlfzknvdmrf metabolic panelRANVIR RATHOREStart: 08-08-4757Xlsm bld gluc mntr dev cleared fda spec home useRANVIR RATHOREStart: 41-15-4988JPCIN METABOLIC PANEL W/ REFLEX TO MG FOR LOW K Murjostin Morris Work Phone: Start: 63-21-1698Hxggo count complete auto&auto difrntl wbcMuraltoirisperry Morris Work Phone: Start: 92-47-2069ANSTGV AND OUTPUTRANVIR RATHOREStart: 98-85-2856Agpfzgo blood reagent stripRANVIR RATHOREStart: 12-83-9379Mnuc bld gluc mntr dev cleared fda spec home useRANVIR RATHOREStart: 17-82-1329Djbyhdc blood reagent stripRanvir S Judie Work Phone: Start: 50-41-4689Ewwgi sacrum & coccyx minimum 2 views GIOVANNA RATHOREStart: 50-26-3282Lmckg spine lumbosacral 2/3 viewsRANVIR JUDIE Start: 96-12-5036Hpycubq blood reagent stripRANVIR RATHOREStart: 92-60-0551Yzmz bld gluc mntr dev cleared fda spec home useRANVIR RATHOREStart: 48-45-8390Uezcj sacrum & coccyx minimum 2 viewsDharmakardonn Mares Work Phone: Start: 17-85-5376Ekhzv spine lumbosacral 2/3 views Matt Mares Work Phone: Start: 01-38-4331Lrnwarl blood reagent stripRanvir S Judie Work Phone: Start: 66-79-3683Fqcea of lactateRANVIR RATHOREStart: 53-26-5721I-reactive proteinRANVIR RATHOREStart: 25-48-9017Jvwidcnxompfz (pct) GIOVANNA RATHOREStart: 53-03-5734Truvqrmgnceaj rate rbc automatedRANVIR JUDIE Start: 16-74-5445Gt head/brain w/o contrast materialRANVIR RATHOREStart: 76-61-6807Qt angiography head w/contrast/noncontrastRANVIR RATHOREStart: 08-32-4710Qglqo of lactateLuis Manish Erazo Work Phone: Start: 69-04-1971K-reactive proteinLuis Manish Erazo Work Phone: Start: 73-65-4999Zmwwlzrgtknzg (pct)Alfonso Erazo Work Phone: Start: 85-96-1699Luishoejojksh rate rbc automatedLuis Manish Erazo Work Phone: Start: 10-74-5931Bd head/brain w/o contrast material Jimmy Chirri Work Phone: Start: 29-29-9946Wu angiography neck w/contrast/noncontrastLuis Manish Erazo Work Phone: Start: 39-86-0881Wpmapgq blood reagent stripRANVIR RATHOREStart: 34-52-2332GR CONSULT TO NEUROLOGYRANVIR RATHOREStart: 10-10-2019 Glucose blood reagent stripRanvir S Judie Work Phone: Start: 52-89-8477YQLNDVAUMBOMN NURSING CARE ORDER (SPECIFY)GIOVANNA RATHOREStart: 25-78-8005Nmqk bld gluc mntr dev cleared fda spec home useRANVIR RATHOREStart: 56-73-0872PJWJYWSQ OXYGEN THERAPY PROTOCOLRANVIR RATHOREStart: 27-21-6450Ovkgl of magnesiumRANVIR RATHOREStart: 22-36-9809Aceuq of thyroid stimulating hormone tshRANVIR RATHOREStart: 82-18-4075Eqiyt count complete auto&auto difrntl wbcRANVIR RATHOREStart: 72-93-0692Unxhhuynguuzp metabolic panelRANVIR RATHOREStart: 25-77-2360Bmxid of magnesiumMuralikrishna Porandla Work Phone: Start: 64-97-9455Rkxth of thyroid stimulating hormone tshMuralikrishna Porandla Work Phone: Start: 04-58-2641BAPWH METABOLIC PANEL W/ REFLEX TO MG FOR LOW KMuralikrishna Porandla Work Phone: Start: 85-85-5894Hvxov count complete auto&auto difrntl wbcMuralikrishna Porandla Work Phone: Start: 20-13-0545Asek bld gluc mntr dev cleared fda spec home useRANVIR RATHOREStart: 14-30-1324DRCYY WEIGHTSRANVIR RATHOREStart: 82-02-2901GAJYAY AND OUTPUTRANVIR RATHOREStart: 38-16-1574Axpj bld gluc mntr dev cleared fda spec home useRANVIR RATHOREStart: 27-86-8322Wenamlkdtf exam abdomen 1 viewRANVIR RATHOREStart: 90-95-9433Ynsr bld gluc mntr dev cleared fda spec home useRANVIR RATHOREStart: 83-70-1381Fpycmwk blood reagent stripRANVIR JUDIE Start: 18-99-7967Yjsuwaiqmr exam abdomen 1 Ruel Morris Work Phone: Start: 41-06-6867Gnvivwg blood reagent stripRanvir S Judie Work Phone: Start: 29-57-5004WKIYM SIGNSRANVIR RATHOREStart: 56-56-6413Tl abdominal real time w/image limitedRANVIR RATHOREStart: 10-09-2019 MISCELLANEOUS NURSING CARE ORDER (SPECIFY)GIOVANNA RATHOREStart: 49-43-2315Fghw bld gluc mntr dev cleared fda spec home useRANVIR RATHOREStart: 54-28-4218Iz abdominal real time w/image limitedMatt Mares Work Phone: Start: 04-40-1914BOUTGED HEELS OFF OF BEDRANVIR RATHOREStart: 78-17-4169XTZK OF BED 60 DEGREES OR LESSRANVIR RATHOREStart: 66-18-8573URDSOQR COMMUNICATIONRANVIR RATHOREStart: 60-77-8807CSCX PATIENTRANVIR RATHOREStart: 81-55-4905MAAUCD AND OUTPUTRANVIR RATHOREStart: 35-41-2609UC EVAL AND TREATRANVIR RATHOREStart: 67-76-8876FF EVAL AND TREATRANVIR RATHOREStart: 49-64-4557FYLE CODERANVIR RATHOREStart: 28-99-2577MAJLIWXY OXYGEN THERAPY PROTOCOLRANVIR RATHOREStart: 23-41-5346ATNKQP PHYSICIAN (SPECIFY)GIOVANNA JUDIE Start: 07-88-5621BJLDZR FOR NO MECHANICAL VTE PROPHYLAXISRANVIR RATHOREStart: 06-25-7602NPDYD SIGNSRANVIR RATHOREStart: 57-69-0307Xlcpb dip stick/tablet reagent auto microscopyRANVIR RATHOREStart: 87-84-8141Siyeo dip stick/tablet rgnt auto w/o microscopyRANVIR RATHOREStart: 22-06-0347Rmwzq dip stick/tablet reagent auto microscopyMuralikrishna Porandla Work Phone: Start: 72-29-3718Xkdxt dip stick/tablet rgnt auto w/o microscopyMuralikrishna Porandla Work Phone: Start: 93-50-5958OEIAIGT STATUS (FROM ED OR OR/PROCEDURAL)GIOVANNA RATHOREStart: 97-84-5662IQ CONSULT TO INTERNAL MEDICINE GIOVANNA RATHOREStart: 96-40-6096Ur thorax w/contrast materialRANVIR RATHOREStart: 60-14-9718Caotb of troponin quantitativeRANVIR RATHOREStart: 79-88-6300Swfofu bodies serum quantitativeRANVIR RATHOREStart: 22-15-2499HIMNI-19RANVIR JUDIE Start: 03-91-8450Vyp routine ecg w/least 12 lds w/i&rRANVIR RATHOREStart: 59-49-3140KAO REPORTRANVIR RATHOREStart: 48-55-5326Jzffb of lipaseRANVIR JUDIE Start: 55-53-0330Lcdfs count complete auto&auto difrntl wbcRANVIR RATHOREStart: 14-13-9625Xxvdcnrdlzkvp metabolic panelRANVIR RATHOREStart: 47-03-3020Bfmgcplygp glycosylated r7xWOKGTL RATHOREStart: 59-57-1004Vgyff panelRANVIR RATHOREStart: 09-44-7913Ti thorax w/contrast materialTgio Melton Work Phone: Start: 11-03-7064Qsxjw of troponin quantitativeJoel Melton Work Phone: Start: 63-27-5979Llroan bodies serum quantitative Joelthalia Melton Work Phone: Start: 71-57-5405EH CONSULT TO VASCULAR SURGERYRANVIR RATHOREStart: 79-26-8337TWXTD-19Julie Ramesh Work Phone: Start: 09-79-2124Ejq routine ecg w/least 12 lds trcg only w/o i&rTgio [employer] Work Phone: Start: 30-06-5734KST REPORTHpf ScanningStart: 18-00-4557Jyiqf of lipaseTgio [employer] Work Phone: Start: 32-86-3802Rxfnq of troponin quantitativeTgio [employer] Work Phone: Start: 74-26-6825Shdlo count complete auto&auto difrntl wbcT[facility] [employer] Work Phone: Start: 89-78-2878Wyoetagdxhdkn metabolic panelTgio [employer] Work Phone: Start: 13-63-6579Wggvjeihcf glycosylated q2gWvpqgd J [employer] Work Phone: Start: 83-39-5485Akqso panelTgio [employer] Phone: Start: 46-52-8923HFLVLKZRB PATIENTDOUGLAS HOYStart: 76-91-1085HSCPIBSH OXYGEN THERAPY PROTOCOLDOUGLAS HOYStart: 22-22-8964TDDUG METABOLIC PANEL W/ REFLEX TO MG FOR LOW KDOUGLAS HOYStart: 52-40-9978HKB WITH AUTO DIFFERENTIALDOUGLAS HOYStart: 34-46-6953RYRBNASCXKOWZVD HOYStart: 80-79-9768HRLEZGFHGCCSQUT HOYStart: 05-62-9141NJMPN WEIGHTSDOUGLAS HOYStart: 02-87-2546HTVAUR AND OUTPUTDOUGLAS HOYStart: 19-78-6469ENRNUYPVCWKOKBSKSC HOY Start: 61-32-9675IJPGMHCA TOTALDOUGLAS HOYStart: 12-56-6999LYBIAFOYNMBR HOY Start: 61-73-5427HCZJFLAFDRMTTSV HOYStart: 04-69-1918CJFPJHNEOEIVI URINEDOUGLAS HOYStart: 94-64-0796JWBFIQLE PATIENTDOUGLAS HOYStart: 82-86-6523GEJDB METABOLIC PANEL W/ REFLEX TO MG FOR LOW KDOUGLAS HOYStart: 65-03-2721VWZ WITH AUTO DIFFERENTIALDOUGLAS HOYStart: 53-51-2185Rgfd tthrc r-t 2d w/wom-mode compl spec&colr dDOUGLAS HOYStart: 38-39-4927AEWJ CODEDOUGLAS HOYStart: 06-28-2017 INITIATE OXYGEN THERAPY PROTOCOLDOUGLAS HOYStart: 23-74-6900YVWKWS AND OUTPUT VELASQUEZ HOYStart: 01-92-7999CO CONSULT TO SOCIAL WORKDOUGLAS HOYStart: 81-55-7826LL EVAL AND TREATDOUGLAS HOYStart: 53-15-0282QR EVAL AND TREATDOUGLAS HOYStart: 50-01-7647OHOEIB FOR NO MECHANICAL VTE PROPHYLAXISDOUGLAS HOYStart: 34-25-3532YOAEIDO CESSATION EDUCATIONDOUGLAS HOYStart: 13-85-4125NNKAX SIGNS VELASQUEZ HOYStart: 39-14-4960HUSY CARDIACDOUGLAS HOYStart: 72-35-0029HZETHE PHYSICIAN (SPECIFY)VELASQUEZ HOYStart: 61-32-1545CITSG INTERMITTENT PNEUMATIC COMPRESSION DEVICEDOUGLAS HOYStart: 82-84-2866JMCNWL FOR NO CHEMICAL VTE PROPHYLAXISDOUGLAS HOYStart: 37-36-5272YEMPWWKWE MONITORINGDOUGLAS HOYStart: 24-38-8324VIBSL SIGNSDOUGLAS HOYStart: 13-84-1089RCUIDAD STATUS (FROM ED OR OR/PROCEDURAL)VELASQUEZ HOYStart: 72-12-5382NMUUAYJJIAAJCHL HOYStart: 05-78-7052AT CONSULT TO INTERNAL MEDICINEDOUGAPOLLO HOYStart: 12-62-9904UMY 12-LEADDOUGLAS MINALY Start: 69-98-1974VOEEH METABOLIC PANELDOUGLAS HOYStart: 95-17-4991EZS WITH AUTO DIFFERENTIALDOUGLAS HOYStart: 91-43-0178MEYRQADXDUHNGFJ HOYStart: 80-69-7214CDI WITH REFLEXDOUGLAS HOYStart: 99-71-4908Bknzidgiap exam chest 2 viewsDOUGLAS HOY Start: 27-02-2909ETCWX RT REFLEX TO CULTUREDANNYGLDEREK HOYStart: 60-95-7502STHCZL PERIPHERAL HUMPHREY BUNCH Plan of Treatment DateCare ActivityDetailAuthorStart: 08-24-2024 End: 18-49-9580Hlltsvm encounter tiubmtrex91/01/2025 4:00 PM EDT Office Visit [facility] [address] [place] [phone] Curry Red MD [address] [place] [address] [facility]: 02-06-2024 End: 29-20-8258Tbbjwxg encounter cknkbgaku94/13/2024 1:10 PM EST Office Visit [facility] [address] [place] [phone] Iva Ta PA [address] [place] [address] [facility]: 01-16-2024 End: 10-17-9390Forpxgg encounter jblkhamea35/22/2024 11:50 AM EST Office Visit [facility] [address] [place] [phone] Iva Ta PA [address] [place] [address] ArrivedNOMS [facility] DERMComment on above:ArrivedStart: 43-87-5572Ljlyvsrmx vaccinationInfluenza Vaccine (#1)[facility] HealthcareStart: 86-31-3689Otvhj X-ray of right handXR hand RT min 3V*[facility]: 40-27-3154TQ Hand - right GE 3 ViewsWay[facility] Hospitalt[facility]: 24-28-2537Imwsqtsfviee Vaccine: 65+ Years (2 of 2 - PCV) Pneumococcal Vaccine: 65+ Years (2 of 2 - PCV)[facility] HealthcareStart: 10-14-2020 Creatinine measurementCreatinine monitoringC[facility] Clinic [facility]: 10-14-2020 Potassium monitoringPotassium monitoringCleveland Clinic Mercy Hospital: 10-26-2019 Influenza vaccinationFlu vaccine (#1)[facility]: 85-91-8298Adgwls Wellness Visit (AWV)Annual Wellness Visit (AWV)[facility]: 35-68-2277Ithkjieaiskl 65+ years Vaccine (1 of 1 - PPSV23)Pneumococcal 65+ years Vaccine (1 of 1 - PPSV23)[facility]: 22-39-7639Eldlavwah for osteoporosisDEXA (modify frequency per FRAX score)[facility]: 14-61-9074Rdcgsybk Vaccine (1 of 2)Shingles Vaccine (1 of 2)[place] Start: 58-69-2601LHtU/Tdap/Td vaccine (1 - Tdap)DTaP/Tdap/Td vaccine (1 - Tdap) [place], [place] End: 51-58-5943NQETWPP, CSFALBUMIN, CSF Lab Routine One Time for 1 Occurrences starting 10/11/2019 until 10/11/2019[place], [place]Comment [place]:One Time for 1 Occurrences starting 10/11/2019 until 10/11/2019Basic Metabolic Panel w/ Reflex to MGBasic Metabolic Panel w/ Reflex to MG Lab Routine Daily until discontinued starting 10/10/2019, 7 [place], [place]:Daily until discontinued starting 10/10/2019, 7 completedCBC auto differentialCBC auto differential Lab Routine Daily until discontinued starting 10/10/2019, 7 [place], [place]:Daily until discontinued starting 10/10/2019, 7 completedCulture, Blood 1MBuffalo, [place] End: 32-36-8130Nwiruvq, UrineCulture, Urine Microbiology Routine One Time for 1 Occurrences starting 10/16/2019 until 10/16/2019[place], [place]Comment [place] above:One Time for 1 Occurrences starting 10/16/2019 until 10/16/2019Culture, UrineCulture, Urine Microbiology [employer] Label Print 10/16/2019 1:08 PM EDT [facility], KYNebulizer therapyHHN Treatment Respiratory Care Routine As Needed until discontinued starting 10/11/2019[facility], [place]Comment on above:As Needed until discontinued starting 10/11/2019Oxygen therapy [Minimum Data Set]Initiate Oxygen Therapy Protocol Respiratory Care Routine Daily until discontinued starting 10/09/2019[facility], KYComment on above:Daily until discontinued starting 10/09/2019POCT GlucoseUniversity Hospitals Elyria Medical Center, KYComment on above:As Needed until discontinued starting 10/09/20194X Daily (AC & HS) until discontinued starting 10/09/2019 Immunizations Immunization DateImmunizationNotesCare YvnogvgiAvxhxxge69-64-5807RYGGQ-83 mRNA- 1273 (Moderna)MD Velasquez Bunch Work Phone: [facility]02-26-2021COVID-19 mRNA-1273 (Moderna)MD Velasquez Bunch Work Phone: [facility]01-29-2021COVID-19 mRNA-1273 (Moderna)MD Velasquez Bunch Work Phone: [facility]10-05-2020influenza virus vaccine, unspecified formulationspencere Keyon HARRIS Work Phone: [facility] Payers DatePayer CategoryPayerPolicy [id number] (Managed Care) [id number] [id number] [id number] [id number] 1960Self-pay [id number] [id number] 2.16.840.1.010929.3.57[id number] 2.16.840.1.429581.3.57[id number] 2.16.840.1.586912.3.57[id number] 2.16.840.1.330212.3.57[id number] 2.16.840.1.600741.3.57[id number] 2.16.840.1.32[id number] 2.16.840.1.827361.3.579.2.531 Social History DateTypeDetailFacilityStart: 34-12-9591Gvasnuz smoking status NHISNever smoker [facility]: 10-09-2019 End: 81-31-6133Ziepkqf use and exposureNever usedC[facility] Clinic Mercy Hospital: 18-13-9280Oxsgnko intakeCurrent non-drinker of alcohol (finding)[facility]: 95-27-4342Wye Assigned At BirthNot on [place] Exposure to SARS-CoV-2 (event)Not sureCleveland Clinic Mercy Hospital: 21-27-6086Qnu Assigned At BirthC[facility] Clinic [facility] Hospitaltart: 08-23-2022 End: 59-88-1170Qhbaedh smoking status NHISEx-smoker (finding)[facility] HospitalHistory of tobacco useCurrent smokerNOMS HealthcareHistory of tobacco useCigarette SmokerNOMS HealthcareStart: 04-17-2023 End: 03-29-6023Qxhesvv of Social functionNOMS HealthcareStart: 04-17-2023 End: 55-94-4274Gjzpoof use panelNOMS HealthcareStart: 44-27-5351Brnfaqr Comment Last smoked: 10-15 yearsSaint [facility] 05-18-2020 to 12-22-2024 Note Date & YebkJfdvZsszptdz17-14-3859 NotePro[facility] 08-30-2024 NoteRECEIVED REFERRAL FOR PATIENT FOR GALLBLADDER COLIC, CALLED PATIENT WHO STATED SHE IS GOING TO TALK TO PCP AND WOULD LIKE TO HAVE THIS DONE CLOSER TO HOME. [facility]07-04-2025 NoteUnSCCI Hospital [facility]07-04-2025 NoteUnSCCI Hospital [facility]07-04-2025 Note [facility]06-25-2025 NoteSpoke to patient regarding vascular procedure- Patient is scheduled for 08/26/24 @ 1pm with an arrival time of 11am- preop labs entered. Patient educated on medication holds and lab work needing completed prior to OR. Patient verbalized understanding.[facility]06-12-2025 NotePro[facility]06-11-2025 NotePro[facility] 08-04-2024 NoteUnSCCI Hospital [facility]ima04-25-2025 NoteProMedica [facility] Hospital04-14-2025 NotePro[facility] 05-20-2024 History of Present illness Narrative* Curry [...] be refrigerated. Medication will be sent to [facility], contact information provided to patient, instructed [...] 3 month follow up documented in this encounterSaint Joseph Hospital WestTsbhkfavqa80-26-2051 NotePatient called machine sign writer direct line ([phone]), however calling to reach [facility]3] Nephrology. Electrical Electronics Engineer provided patient with phone number to reach Nephrology ([phone]).[facility]03-18-2025 NoteUnSCCI Hospital [facility]02-07-2025 NoteUnSCC[facility] 03-26-2024 NoteUnSCCI Hospital [facility]01-14-2025 NoteProMedica Toledo Hospital12-23-2024 NotePro[facility] 02-12-2024 NoteProMedica [facility] Hospital12-19-2024 NoteProMedica [facility] Hospital12-19-2024 NoteOccupational Therapy Name: Shayy Maynard Date of : 1945 Today's Date: 02/12/24 Pt is unable to be seen for therapy at this time secondary to Discharging !@ 1030 Check No Charge Time attempted: 0957UnSCCI Hospital [facility]12-18-2024 NoteProMedica Toledo Hospital12-18-2024 NotePro[facility] 02-11-2024 NotePro[facility]12-18-2024 NotePro[facility] Hospital12-17-2024 NotePro[facility] 02-10-2024 NotePro[facility]12-17-2024 NotePro[facility]12-17-2024 NotePro[facility] 02-10-2024 NotePro[facility] Hospital12-17-2024 NotePro[facility]12-17-2024 NotePro[facility] 02-10-2024 NotePro[facility]12-16-2024 NotePro[facility]12-16-2024 NotePro[facility] 02-09-2024 NotePro[facility]12-16-2024 NotePro[facility]12-16-2024 NotePro[facility] 02-08-2024 NotePro[facility]12-15-2024 NotePro[facility] Hospital12-15-2024 NotePro[facility] 02-08-2024 NotePro[facility]12-15-2024 NotePro[facility]12-14-2024 NotePro[facility] 02-07-2024 NotePro[facility] Hospital12-14-2024 NotePro[facility] Hospital12-13-2024 NotePro[facility] 02-06-2024 NotePro[facility] Hospital12-13-2024 NoteProMed[facility] Hospital12-13-2024 NotePro[facility] 02-06-2024 NoteProMed[facility] Hospital12-13-2024 NoteProMed[facility] Hospital12-12-2024 NotePro[facility] 02-05-2024 NoteProMedica Tol[facility] Hospital12-12-2024 NoteProMedica Tol[facility] Hospital12-12-2024 NotePro[facility] 02-05-2024 NoteProMedica Toledo Hospital12-11-2024 NoteProMedica Tol[facility] Hospital12-11-2024 NotePro[facility] 02-04-2024 NoteBrief follow up with RN. No family at bedside. Patient is sleeping. Patient is scheduled for angiogram today. Once procedure/test completed and patient medically cleared therapy will return for eval and recommendations. SW following.[facility]12-11-2024 NoteProMedica Tol[facility] Hospital12-11-2024 NotePro[facility] Hospital12-11-2024 Note [facility]12-11-2024 NotePro[facility] Hospital12-10-2024 NotePro[facility]12-10-2024 Note [facility]12-10-2024 NoteProMed[facility] Hospital12-10-2024 NoteOccupational Therapy Name: Shayy Maynard Date of : 1945 Today's Date: 02/03/24 Pt is unable to be seen for therapy at this time secondary to Medically unstable today per nsg . Check No Charge Time attempted: 1113UnSCCI Hospital [facility]12-10-2024 NoteProMedica Toledo Hospital12-10-2024 NotePro[facility] 02-03-2024 NoteProMedica Tol[facility] Hospital12-10-2024 NoteProMedica [facility] Hospital12-09-2024 NoteCase was discussed with the KEN on 02/02/2024. I agree with the history, physical, assessment, and plan of care. I discussed the findings and therapeutic plan. I agree with the documentation, except for any updates below. Daniela Van MDProMedica Toledo Hospital12-09-2024 NoteProMedica Tol[facility] Hospital12-07-2024 NotePro[facility] 01-31-2024 NoteProMedica Tol[facility] Hospital12-07-2024 NoteProMedica Tol[facility] Hospital12-06-2024 NotePro[facility] 01-30-2024 NoteProMedica Tol[facility] Hospital12-06-2024 NoteProMedica Tol[facility] Hospital12-06-2024 NotePro[facility] 01-30-2024 NoteProMedica Tol[facility] Hospital12-06-2024 NoteProMedica Tol[facility] Hospital12-05-2024 NotePro[facility] 01-29-2024 NoteProMedica Toledo Hospital12-05-2024 NoteProMedica Tol[facility] Hospital12-05-2024 NotePro[facility] 01-29-2024 NoteProMedica Toledo Hospital12-04-2024 [id number]: PEDAL PULSES: PRE PROCEDURE RIGHT: PT/DOPPLER; DP/DOPPLER LEFT: PT/DOPPLER; DP/DOPPLERUnSCCI Hospital [facility]ima12-04-2024 Note 1701: FAMILY UPDATED ON PROGRESS OF PROCEDUREUnSCCI Hospital [facility]ima 01-28-2024 NoteProMedica Toledo Hospital12-04-2024 NoteProMedica [facility] Hospital12-04-2024 NotePeripheral IV Date/Time: 01/28/2024 4:39 PM Inserted by: Rick Brown MD Placement Needle size: 14 G Laterality: right Location: hand Local anesthetic: none Site prep: alcohol Technique: anatomical landmarks Attempts: 2Pro[facility]12-04-2024 NoteProMedica Tol[facility] Hospital12-04-2024 NotePro[facility] 01-28-2024 NoteUnSCCI Hospital [facility]12-04-2024 NotePhysical Therapy Planned endovascular AAA repair today per RN. Will defer evaluation at this time and follow up post-operatively as appropriate. Peter Cartagena PT, DPTUnSCCI Hospital Lima12-04-2024 Note Occupational Therapy Name: Shayy Maynard Date of : 1945 Today's Date: 01/28/24 Pt is unable to be seen for therapy at this time secondary to planned AAA sx today/nsg request to hold . Check No Charge Time attempted: 730UnSCCI Hospital [facility]12-03-2024 NoteCase was discussed with the KEN on 01/27/2024. I agree with the history, physical, assessment, and plan of care. I discussed the findings and therapeutic plan. I agree with the documentation, except for any updates below. Scarlett Sharpe MDUnSCCI Hospital [facility]ima12-03-2024 NoteUnSCCI Hospital [facility]12-03-2024 NoteProMedica [facility] 01-16-2024 History of Present illness Narrative* KIMBERLY [...] Next Visit: 4-6 weeks documented in this encounterSaint Joseph Hospital WestQdpfjuhjlb07-28-0858 NoteProMedica Toledo Hospital04-22-2021 Note [id number]:127[facility] 06-15-2020 NoteCystoscopy with Urethral Dilation ? Voiding [...] if you have a fever over 100 degreesUniversity Hospitals Ahuja Medical Center03-25-2021 [id number]:127[facility]03-25-2021 NoteCystoscopy with Urethral Dilation ? Voiding after [...] if you have a fever over 100 degreesUniversity Hospitals Ahuja Medical CenterEvaluation note* Diagnosis Onset Date Resolution Status Trigger finger, right middle finger acuteTrigger finger, right ring fingerOur Lady of Mercy Hospital Work Phone: Evaluation note* Diagnosis Other atopic dermatitis- Primary documented in this encounter [facility] HealthcareEvaluation note* Diagnosis Other atopic dermatitis- Primary High risk medication use documented in this encounter [facility] Healthcare Summary Purpose Family History No Family History Records Found Relationship Condition Age at Onset Recorded Date/T janki father Malignant neoplasm of lung Unknown Not SpecifiedMyocardial infarctionUnknown Advance Directives No Advanced Directives Records FoundDocuments on File TypeDate RecordedPatient RepresentativeExplanationACP-Advance DirectiveACP-Power of AttorneyCode StatusDate ActivatedDate InactivatedCommentsFull Code10/09/2019 12:27 PMFull Code06/28/2017 8:51 AM06/29/2017 4:56 PMFull Code06/28/2017 1:26 AM 06/28/2017 8:50 AM Advance Directive [...] Contact Information Primary Emergency Contact: Deep Maynard [facility] Relation: Spouse Past Surgical History: Past [...] Assisted Dressing Assisted Toileting Assisted Feeding Assisted Camp Recreation Specialist Independent Med Delivery whole Wound Care Documentation [...] NOT a DME order): n/a Other Treatments: jail, home health aide services Patient's personal belongings (please select all that are sent with patient): patient has all belongings RN SIGNATURE: CASE MANAGEMENT/SOCIAL WORK SECTION Inpatient Status Date: 10-09-2019 Readmission Risk Assessment Score: Readmission Risk Risk of Unplanned Readmission: 12 Discharging to Facility/ Agency Name: [facility] Address: Phone: Fax: Dialysis Facility (if applicable) Name: Address: Dialysis Schedule: Phone: Fax: Substance Abuse Prevention Coordinator/Cable Installation Manager signature: EDT ICIAN SECTION Prognosis: Fair Condition [...] size monitoring with PCP F/u urologist at [place] in 1 week for lowe and void trial Take docusate 100 mg daily and miralax 17 g daily. documented in this encounter History of Present Illness * Tami Ni RN - 10/16/2019 5:51 PM EDT Electrical Electronics Engineer discharged patient @ 1745 by wheelchair off unit with . Electrical Electronics Engineer went over all discharge paperwork and patient [...] Thank you * Willie Garcia APRN - VACUUM BOTTLE ASSEMBLER - 10/16/2019 12:40 PM EDT Neurology Nurse [...] who was admitted as a transfer from [facility] 10/09/2019 where she presented with [...] to ensure the accuracy of this automated tap builder, some errors in tap builder may have occurred. * Bruce Pelletier MD - 10/16/2019 11:07 AM EDT [facility] Internal Medicine Teaching Residency Program Inpatient Daily Progress Note Patient: Shayy Maynard Date of : 1945 Acct: [id number] Room: Admit date: 10/09/2019 Today's date: 10/16/19 [...] COPD, primary hypertension was transferred from [facility] for management of infrarenal abdominal aortic aneurysm and for vascular consultation. States she started having lower back pain since . Describes the pain as constant, sharp, 10out of 10 in intensity associated with nausea. Patient went to the emergency department at [facility] to have hypertensive emergency with systolics above 200 and d-dimer was elevated. CT abdomen was done which showed 3.5 infrarenal aortic aneurysm, started on Cardene drip and pain medications we re given. Patient was transferred to [facility] found to be hypoxic in [...] Q4H PRN hydrALAZINE, 10 mg, Q6H PRN eygdkihifs-jmbgdaqezzwmi-gnilnkzf, 1 tablet, Q4H PRN sodium chloride flush, [...] Dwayne Hanson MD Internal Medicine Resident, PGY-1 [facility]; [place], [place] 10/16/2019, 11:07 AM I have discussed [...] 9:31 AM EDT [facility] - Progress Note Today's Date [...] culture. Medical Decision Making/Summary/Discussion:10/16/2019 Infection Control Recommendations [place] Precautions Antimicrobial Stewardship Recommendations Discontinuation of therapy [...] of . INITIAL HISTORY: Patient transferred from [facility] on 10-09-19 because of low back pain and findings of an infrarenal abdominal aortic aneurysm. Developed onset of back pain on 10-07-19, associated with nausea. She was evaluated at [place] [facility] and found to have a hypertensive emergency with systolic pressures over [address] showed a 3.5 cm infrarenal aortic aneurysm. Her BP was controlled with Cardene drip and the patient was transferred to [facility]. At [facility] patient [...] file Gets together: Not on file Attends baptism service: Not on file Active member of [...] Initial FINDINGS: CTA NECK: AORTIC ARCH/ARCH VESSELS: Hwsq-cg-zxwsrhbh atherosclerotic plaque at the arch arch and [...] No acute pulmonary process. Emphysema. Medical Decision Tlljyc-Hhchvirb-Vkjgx: 10/15/2019 12:10 AM - Blanco Moreau Incoming Lab Results From [facility] Specimen Information: Blood Component Collected Lab Specimen Description 10/12/2019 2:17 PM Gleam .BLOOD Special Requests 10/12/2019 2:17 PM Gleam back lt arm 3ml Culture 10/12/2019 2:17 PM Gleam NO GROWTH 3 DAYS Medical Decision Making-Other: Note: Labs, medications, radiologic studies were reviewed with personal review of films Large amounts of data were reviewed Discussed with nursing Staff, senior production planner Infection Control and Prevention measures reviewed [...] Patel RN - 10/16/2019 6:15 AM EDT Electrical Electronics Engineer bladder scanned patient and bladder scan shows 554 mL, machine sign writer straight cath patient and was only [...] Will continue to monitor. * Nedra Velasquez, JOSE ENRIQUE, LD - 10/15/2019 3:28 PM EDT Comprehensive [...] loss Fluid Accumulation: 1 - Mild Extremities Frontend Engineer Strength: Not Performed Estimated Daily Nutrient Needs: Energy (kcal): 1.3-1.4 ~> 0338-2711 kcals/d; Weight Used for Energy Requirements: Admission Protein (g): 1.2-1.4 ~> 65-76 gms/d; Weight Used for Protein Requirements: [place] Nutrition Related Findings: Na 131 Wounds: None Current Nutrition Therapies: DIET GENERAL; Anthropometric Measures: Height: 5' 4 (162.6 cm) Current Body Weight: 154 lb (69.9 kg) Admission Body Weight: 154 lb (69.9 kg) Usual Body Weight: 160 lb (72.6 kg)(per pt's ) [place] Body Weight: 120 lbs; % [place] Body Weight 128.3 % BMI: 26.4 BMI [...] Discharge Planning: Too soon to determine Contact: [phone] * Dwayne Hanson MD - 10/15/2019 3:09 PM EDT [facility] Internal Medicine Teaching Residency Program Inpatient Daily Progress Note Patient: Shayy Maynard Date of : 1945 Acct: [id number] Room: Admit date: 10/09/2019 Today's date: 10/15/19 [...] COPD, primary hypertension was transferred from [facility] for management of infrarenal abdominal aortic aneurysm and for vascular consultation. States she started having lower back pain since . Describes the pain as constant, sharp, 10out of 10 in intensity associated with nausea. Patient went to the emergency department at [facility] to have hypertensive emergency with systolics above 200 and d-dimer was elevated. CT abdomen was done which showed 3.5 infrarenal aortic aneurysm, started on Cardene drip and pain medications we re given. Patient was transferred to [facility] found to be hypoxic in [...] Q4H PRN hydrALAZINE, 10 mg, Q6H PRN flkueooqby-sjtcwufnlspyk-maxxbzij, 1 tablet, Q4H PRN sodium chloride flush, [...] Dwayne Hanson MD Internal Medicine Resident, PGY-1 [facility]; [place], [place] 10/15/2019, 3:09 PM Associated attestation - [...] - 10/15/2019 3:09 PM EDT Occupational Therapy [facility] Occupational Therapy Not Seen Note [...] appropriate. Winifred Foster, OT/S * Sho Tierney, INSPECTOR [employer] - 10/15/2019 1:55 PM EDT Physical Therapy Facility/Department: [facility] CAR 2 Daily Treatment Note NAME: Shayy [...] place: No Restraints: all rail up when INSPECTOR [employer] left, okay with pt Therapy Time Individual [...] who was admitted as a transfer from [facility] 10/09/2019 where she presented with [...] to ensure the accuracy of this automated tap builder, some errors in tap builder may have occurred. * Sailaja Durán RN - 10/15/2019 9:00 AM EDT Pt straight cathed for 850 cc clear yellow urine. Tolerated well. Will continue to monitor. * Alfonso Kendrick MD - 10/15/2019 8:38 AM EDT [facility] - Progress Note Today's Date [...] antibiotics Medical Decision Making/Summary/Discussion:10/15/2019 Infection Control Recommendations [place] Precautions Antimicrobial Stewardship Recommendations Discontinuation of therapy [...] of . INITIAL HISTORY: Patient transferred from [facility] on 10-09-19 because of low back pain and findings of an infrarenal abdominal aortic aneurysm. Developed onset of back pain on 10-07-19, associated with nausea. She was evaluated at [place] [facility] and found to have a hypertensive emergency with systolic pressures over [address] showed a 3.5 cm infrarenal aortic aneurysm. Her BP was controlled with Cardene drip and the patient was transferred to [facility]. At V patient [...] file Gets together: Not on file Attends baptism service: Not on file Active member of [...] Initial FINDINGS: CTA NECK: AORTIC ARCH/ARCH VESSELS: Wfqt-lv-inhccncp atherosclerotic plaque at the arch arch and [...] No acute pulmonary process. Emphysema. Medical Decision Inzshi-Ijtaotlb-Gewje: 10/15/2019 12:10 AM - PrietoBlanco Incoming Lab Results From [facility] Specimen Information: Blood Component Collected Lab Specimen Description [facility] .BLOOD Special Requests 10/12/2019 2:17 [facility] back lt arm 3ml Culture 10/12/2019 2:17 PM [facility] NO GROWTH 3 DAYS Medical Decision Making-Other: Note: Labs, medications, radiologic studies were reviewed with personal review of films Large amounts of data were reviewed Discussed with nursing Staff, senior production planner Infection Control and Prevention measures reviewed [...] Hanson MD - 10/14/2019 1:29 PM EDT [facility] Internal Medicine Teaching Residency Program Inpatient Daily Progress Note Patient: Shayy Maynard Date of : 1945 Acct: [id number] Room: Admit date: 10/09/2019 Today's date: 10/14/19 [...] COPD, primary hypertension was transferred from [facility] for management of infrarenal abdominal aortic aneurysm and for vascular consultation. States she started having lower back pain since . Describes the pain as constant, sharp, 10out of 10 in intensity associated with nausea. Patient went to the emergency department at [facility] to have hypertensive emergency with systolics above 200 and d-dimer was elevated. CT abdomen was done which showed 3.5 infrarenal aortic aneurysm, started on Cardene drip and pain medications we re given. Patient was transferred to [facility] found to be hypoxic in [...] Q4H PRN hydrALAZINE, 10 mg, Q6H PRN shyqpqmxuj-ibnuggrermxkq-tapgmink, 1 tablet, Q4H PRN sodium chloride flush, [...] Labs: CBC: Recent Labs 10/12/19 0636 10/13/19 0610/14/19 0535 WBC 12.2* 12.3* 10.0 RBC 4.32 4.87 4.38 HGB 12.7 14.5 12.9 HCT 40.5 45.5 39.5 MCV 93.8 93.4 90.2 RDW 14.7* 15.0* 14.7* PLT 196 210 190 BMP: Recent Labs 10/12/19 0610/13/19 0610/14/19 0535 NA 132* 131* 130* K 3.3* [...] Dwayne Hanson MD Internal Medicine Resident, PGY-1 [facility]; [place], [place] 10/14/2019, 1:29 PM Associated attestation - Bruce Pelletier MD - 10/14/2019 3:55 PM EDT I have discussed the care of Shayy Alex , including pertinent history and exam findings, [...] by Bruce Pelletier MD * Jose Willie, DRIVE IN TELLER - VACUUM BOTTLE ASSEMBLER - 10/14/2019 11:22 AM EDT Neurology Nurse [...] who was admitted as a transfer from [facility] 10/09/2019 where she presented with [...] to ensure the accuracy of this automated tap builder, some errors in tap builder may have occurred. * Alfonso Kendrick MD - 10/14/2019 10:10 AM EDT [facility] - Progress Note Today's Date [...] antibiotics Medical Decision Making/Summary/Discussion:10/14/2019 Infection Control Recommendations [place] Precautions Antimicrobial Stewardship Recommendations Discontinuation of therapy [...] of . INITIAL HISTORY: Patient transferred from [facility] on 10-09-19 because of low back pain and findings of an infrarenal abdominal aortic aneurysm. Developed onset of back pain on 10-07-19, associated with nausea. She was evaluated at [place] [facility] and found to have a hypertensive emergency with systolic pressures over [address] showed a 3.5 cm infrarenal aortic aneurysm. Her BP was controlled with Cardene drip and the patient was transferred to [facility]. At V patient [...] file Gets together: Not on file Attends baptism service: Not on file Active member of [...] Initial FINDINGS: CTA NECK: AORTIC ARCH/ARCH VESSELS: Nvav-go-fkehlgmy atherosclerotic plaque at the arch arch and [...] No acute pulmonary process. Emphysema. Medical Decision Gnyppy-Ufargyev-Fqsrm: Medical Decision Making-Other: Note: Labs, medications, radiologic studies were reviewed with personal review of films Large amounts of data were reviewed Discussed with nursing Staff, senior production planner Infection Control and Prevention measures reviewed [...] Kendrick MD. Pager: - Office: * Divina Ferris, RAMÓN - 10/13/2019 10:40 PM EDT Electrical Electronics Engineer contacted internal med regarding pt complaining of lower abdominal pain. States she has to void but is unable to. Bladder scanned her just now and >999. New order for one time straight cath. Straight cath completed at 2315. 900ml clear, yellow urine out with 63ml residual. Will continue to monitor. 0430- Electrical Electronics Engineer contacted internal med regarding pt unable to void. Bladder scan shows 490. One time straight cath order placed at 0610. New bladder scan shows 571. Cath completed at 0645. 550ml clear, yellow urine out with 16ml residual. Will continue to monitor. Internal med also made aware that pt has not had bowel movement since admission. Mirilax administered. Bowel sounds active. * Linda Adhikari, [employer] - 10/13/2019 4:16 PM EDT Physical Therapy Facility/Department: [facility] 2 Daily Treatment Note NAME: Shayy Maynard [...] Hanson MD - 10/13/2019 9:30 AM EDT [facility] Internal Medicine Teaching Residency Program Inpatient Daily Progress Note Patient: Shayy Maynard Date of : 1945 Acct: [id number] Room: Admit date: 10/09/2019 Today's date: 10/13/19 Number of days in the hospital: 4 SUBJECTIVE Admitting Diagnosis: Aneurysm of infrarenal abdominal aorta (HCC) CC: Midline Lower Back Pain Pt examined at bedside. Chart & results reviewed. BP increased overnight - Installment Dealer Installations Inspector gave Norvasc and started IV Hydralazine early [...] COPD, primary hypertension was transferred from [facility] for management of infrarenal abdominal aortic aneurysm and for vascular consultation. States she started having lower back pain since . Describes the pain as constant, sharp, 10out of 10 in intensity associated with nausea. Patient went to the emergency department at [facility] to have hypertensive emergency with systolics above 200 and d-dimer was elevated. CT abdomen was done which showed 3.5 infrarenal aortic aneurysm, started on Cardene drip and pain medications we re given. Patient was transferred to [facility] found to be hypoxic in [...] Q4H PRN hydrALAZINE, 10 mg, Q6H PRN vjrntsbpby-khpwtrgfewsph-hragzuwf, 1 tablet, Q4H PRN sodium chloride flush, [...] Dwayne Hanson MD Internal Medicine Resident, PGY-1 [facility]; [place], [place] 10/13/2019, 9:31 AM Associated attestation - [...] problems. 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 Headache is improved Blood pressure improved Ultrasound renal duplex, concerning for unilateral renal artery stenosis Patient very sleepy Has tenderness in lower back X-ray lumbar spine done at the time of admission, concerning for possible fracture Ordering MRI lumbar spine Electronically signed by Bruce Pelletier MD * Viry Morelos, FLAQUITO - VACUUM BOTTLE ASSEMBLER - 10/13/2019 8:44 AM EDT NEUROLOGY INPATIENT [...] negative for acute changes -IV Depacon 500mg K1jqyrd x3 doses -Continued blood pressure management as [...] to ensure the accuracy of this automated tap builder, some errors in tap builder may have occurred. * Alfonso Kendrick MD - 10/13/2019 7:57 AM EDT [facility] - Progress Note Today's Date and Time: 10/13/2019, 7:57 AM Impression : Fever, etiology to be determined Intermittent Headaches, most likely side effect of the various medications being given for control of HTN. No apparent meningitis Low back pain Aneurysm infrarenal abdominal aorta Centrilobular emphysema Allergy to quinolones, sulfa Recommendations: Monitor off antibiotics Medical Decision Making/Summary/Discussion:10/13/2019 Infection Control Recommendations [place] Precautions Antimicrobial Stewardship Recommendations Discontinuation of therapy [...] of . INITIAL HISTORY: Patient transferred from [facility] on 10-09-19 because of low back pain and findings of an infrarenal abdominal aortic aneurysm. Developed onset of back pain on 10-07-19, associated with nausea. She was evaluated at [facility] and found to have a hypertensive emergency with systolic pressures over [address] showed a 3.5 cm infrarenal aortic aneurysm. Her BP was controlled with Cardene drip and the patient was transferred to [facility]. At V patient [...] file Gets together: Not on file Attends baptism service: Not on file Active member of [...] Initial FINDINGS: CTA NECK: AORTIC ARCH/ARCH VESSELS: Pwgd-zz-jixeuwdb atherosclerotic plaque at the arch arch and [...] No acute pulmonary process. Emphysema. Medical Decision Sjtepg-Zftljcuy-Aiiyr: Medical Decision Making-Other: Note: Labs, medications, radiologic studies were reviewed with personal review of films Large amounts of data were reviewed Discussed with nursing Staff, senior production planner Infection Control and Prevention measures reviewed All prior entries were reviewed Administer medications as ordered Prognosis: Guarded Discharge planning reviewed Follow up as outpatient. Thank you for allowing us to participate in the care of this patient. Please call with questions. Dickson Hutchinson DPM Pager: - Office: * Divina Ferris RN - 10/13/2019 3:00 AM EDT Electrical Electronics Engineer contacted internal med regarding pt blood pressure. [...] administer. New order for PO 10mg norvasc. Electrical Electronics Engineer will continue to monitor BP and pain. * Alfonso Kendrick MD - 10/12/2019 4:32 PM EDT [facility] - Progress Note Today's Date [...] cultures Medical Decision Making/Summary/Discussion:10/12/2019 Infection Control Recommendations [place] Precautions Antimicrobial Stewardship Recommendations Discontinuation of therapy [...] of . INITIAL HISTORY: Patient transferred from [facility] on 10-09-19 because of low back pain and findings of an infrarenal abdominal aortic aneurysm. Developed onset of back pain on 10-07-19, associated with nausea. She was evaluated at [place] [facility] and found to have a hypertensive emergency with systolic pressures over [address] showed a 3.5 cm infrarenal aortic aneurysm. Her BP was controlled with Cardene drip and the patient was transferred to [facility]. At V patient [...] file Gets together: Not on file Attends baptism service: Not on file Active member of [...] Initial FINDINGS: CTA NECK: AORTIC ARCH/ARCH VESSELS: Pckx-dv-jqnolfej atherosclerotic plaque at the arch arch and [...] No acute pulmonary process. Emphysema. Medical Decision Gstqro-Aiuwdloz-Owgwo: Medical Decision Making-Other: Note: Labs, medications, radiologic studies were reviewed with personal review of films Large amounts of data were reviewed Discussed with nursing Staff, senior production planner Infection Control and Prevention measures reviewed All prior entries were reviewed Administer medications as ordered Prognosis: Guarded Discharge planning reviewed Follow up as outpatient. Thank you for allowing us to participate in the care of this patient. Please call with questions. Alfonso Kendrick MD Pager: - Office: * Malissa Anderson, INSPECT[employer] - 10/12/2019 2:55 PM EDT Physical Therapy [...] Morris MD - 10/12/2019 1:53 PM EDT [facility] Internal Medicine Teaching Residency Program Inpatient Daily Progress Note Patient: Shayy Maynard Date of : 1945 Acct: [id number] Room: Admit date: 10/09/2019 Today's date: 10/12/19 [...] Q4H PRN hydrALAZINE, 10 mg, Q6H PRN otpbucdglj-nkritqwjzxhip-evcwasax, 1 tablet, Q4H PRN sodium chloride flush, [...] Denys Morris MD Internal Medicine Resident, PGY-3 [facility]; [place], [place] 10/12/2019, 1:53 PM * Bruce Pelletier MD - 10/12/2019 1:07 PM EDT Patient seen and examined Little sleepy, clonidine discontinued Hypertension controlled Headache improved MRI brain reviewed concerning for meningioma Work-up for secondary hypertension progress * Viry Morelos, DRIVE IN TELLER - VACUUM BOTTLE ASSEMBLER - 10/12/2019 6:51 AM EDT NEUROLOGY INPATIENT [...] to ensure the accuracy of this automated tap builder, some errors in tap builder may have occurred. * Divina Ferris RN - 10/11/2019 10:20 PM EDT Electrical Electronics Engineer contacted internal med regarding pt headache of 3/10. Pt has IV toradol and reglan ordered. Pt is alert and oriented x2. Electrical Electronics Engineer instructed to hold IV toradol and reglan and to administer PRN tylenol for the headache. Will continue to monitor. * Divnia Ferris RN - 10/11/2019 10:20 PM EDT Electrical Electronics Engineer contacted internal med regarding blood pressure 161/62 and temp of 99.9 after administering scheduled clonidine and lopressor. Pt rating headache 3/10. Electrical Electronics Engineer instructed to hold scheduled IV toradol and reglan. 0435- Electrical Electronics Engineer contacted internal med regarding BP. Electrical Electronics Engineer unable to keep SBP <160. Electrical Electronics Engineer administered PRN IV hydralazine at 2315 for a pressure in the 170s, pressure went to the 160s then back up.IV labetalol administered at 0315 for SBP in the low 180s. Pressure still in the 170s. No new orders at this time. Electrical Electronics Engineer instructed to continue to monitor. 0530- IV hydralazine and PO fioricet administered. No new orders at this time. Will continue to monitor BP. * Divina Ferris RN - 10/11/2019 10:15 PM EDT Electrical Electronics Engineer received call from Dr. Kendrick regarding pt [...] Hanson MD - 10/11/2019 2:46 PM EDT [facility] Internal Medicine Teaching Residency Program Inpatient Daily Progress Note Patient: Shayy Maynard Date of : 1945 Acct: [id number] Room: Admit date: 10/09/2019 Today's date: 10/11/19 [...] COPD, primary hypertension was transferred from [facility] for management of infrarenal abdominal aortic aneurysm and for vascular consultation. States she started having lower back pain since . Describes the pain as constant, sharp, 10out of 10 in intensity associated with nausea. Patient went to the emergency department at [facility] to have hypertensive emergency with systolics above 200 and d-dimer was elevated. CT abdomen was done which showed 3.5 infrarenal aortic aneurysm, started on Cardene drip and pain medications we re given. Patient was transferred to [facility] found to be hypoxic in [...] Q4H PRN hydrALAZINE, 10 mg, Q6H PRN viwaigqikl-pixppnfcgbcax-sqrlxhyl, 1 tablet, Q4H PRN sodium chloride flush, [...] Dwayne Hanson MD Internal Medicine Resident, PGY-1 [facility]; [place], [place] 10/11/2019, 2:46 PM * Bruce Pelletier MD - 10/11/2019 1:43 PM EDT Patient seen and examined Has abdominal articulators Headache work-up in progress, neurology following Plan for MRI brain, may need lumbar puncture Resistant hypertension, hypokalemia We will do work-up for secondary hypertension Renin / Aldosterone level Renal artery Doppler Urine and serum metanephrines * VogelShane snyderianayah Farias, OT - 10/11/2019 1:30 PM EDT Occupational [...] Ambulation Assistance: Independent Transfer Assistance: Independent Active Title One Reading Teacher: Yes Occupation: Retired Additional Comments: pt reported [...] Minutes: 8 Minutes Radha Vogel OTR/L * Jonathan Arambula, PT - 10/11/2019 12:17 PM EDT Physical Therapy Facility/Department: [place] [address] Initial Assessment NAME: Shayy Maynard : 1945 [...] Ambulation Assistance: Independent Transfer Assistance: Independent Active Title One Reading Teacher: Yes 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 Although every effort was made to ensure the accuracy of this automated tap builder, some errors in tap builder may have occurred. * Marely Guardado RN - 10/10/2019 9:18 PM EDT Perfect served ornamental iron worker intermed: Patient is due to get 100mg [...] Hanson MD - 10/10/2019 11:58 AM EDT [facility] Internal Medicine Teaching Residency Program Inpatient Daily Progress Note Patient: Shayy Maynard Date of : 1945 Acct: [id number] Room: Admit date: 10/09/2019 Today's date: 10/10/19 [...] COPD, primary hypertension was transferred from [facility] for management of infrarenal abdominal aortic aneurysm and for vascular consultation. States she started having lower back pain since . Describes the pain as constant, sharp, 10out of 10 in intensity associated with nausea. Patient went to the emergency department at [facility] to have hypertensive emergency with systolics above 200 and d-dimer was elevated. CT abdomen was done which showed 3.5 infrarenal aortic aneurysm, started on Cardene drip and pain medications we re given. Patient was transferred to [facility] found to be hypoxic in [...] Dwayne Hanson MD Internal Medicine Resident, PGY-1 [facility]; [place], [place] 10/10/2019, 12:00 PM * Giovanna Rodrigues [...] not improving. Will awaitl orders. * Carlene Potter, RAMÓN - 10/10/2019 10:21 AM EDT IM team [...] Prieto DO - 10/09/2019 4:07 AM EDT [facility] ED Emergency Department Emergency Medicine Resident [...] by ANNIKA LÓPEZ on 10/09/19 at 0504 JOLE MELTON 10/09/19 0445 10/09/19 0435 fentaNYL (SUBLIMAZE) [...] a 74 y.o. Female with transfer from [place]. Low back pain since . 3.4 infrarenal [...] [] Eloped FOLLOW-UP: Velasquez Bunch MD [address] [address] DISCHARGE MEDICATIONS: New Prescriptions No medications on [...] section and content) DATE CREATED AUTHOR 08/13/2017 [facility] DATE CREATED AUTHOR AUTHOR'S ORGANIZ ATION 11/03/2019 [facility] DATE CREATED AUTHOR AUTHOR'S ORGANIZ ATION 11/29/2020 [facility] DATE CREATED AUTHOR AUTHOR'S ORGANIZ ATION 06/18/2022 [facility] DATE CREATED AUTHOR AUTHOR'S ORGANIZ ATION 05/22/2024 [facility] DATE CREATED AUTHOR AUTHOR'S ORGANIZ ATION 08/20/2024 [facility] DATE CREATED AUTHOR AUTHOR'S ORGANIZ ATION 12/24/2024 [facility] Reason for Visit (unrecogniz ed section and content) ReasonCommentsAbdominal PainBack PainStatusReasonSpecialtyDiagnoses / Procedures Referred By ContactReferred To Contact Diagnoses AAA (abdominal aortic aneurysm) (HCC) Giovanna Rodrigues MD [address] [place] [address] [facility] ReasonCommentsEczemaReasonCommentsFollow-up Care Teams (unrecognized sec tion and [...] DateEnd Date Velasquez Bunch MD [address] [facility] [place] [address] PCP - [facility]01/06/23Te MemberRelationshipSpecialtyStart Date End Date Velasquez Bunch MD [address] [facility] [place] [address] PCP - [facility]01/06/23Te MemberRelationshipSpecialtyStart Date End Date Velasquez Bunch MD [address] [facility] [place] [address] [facility] - [facility]01/06/23Te MemberRelationshipSpecialtyStart Date End Date eVlasquez Bunch MD [address] [facility] [place] [address] PCP - [facility]01/06/23 Goals (unrecognized section and content) Goals may [...] BE BASED ON THE PRIMARY CLINICAL RECORDS. [facility] [employer] [facility]. provides no warranty or guarantee of the accuracy or completeness of information in this document.
[2024-12-29] MEDS: HYDRALAZINE HCL 20 MG/ML VIAL 10 MG IVP ×2 (12:34→20:11)
[2024-12-29 12:35] LABS: Alanine Aminotransferase 22 U/L (14-59); Albumin Globulin Ratio 0.9; Albumin Level 2.8 g/dL (3.4-5.0); Alkaline Phosphatase 113 U/L (46-116); Anion Gap 10.9; Aspartate Amino Transferase 13 U/L (15-37); Blood Urea Nitrogen 18.0 mg/dL (7.0-18.0); Calcium 8.6 mg/dL (8.5-10.1); Carbon Dioxide 30.7 mmol/L (21.0-32.0); Chloride 108 mmol/L (98-107); Estimated GFR (African America 51 (>=60 mL/min/1.73m^2); Estimated GFR (Non-African Ame 42 (>=60 mL/min/1.73m^2); Globulin 3.1 g/dL; Glucose 100 mg/dL (74-106); Potassium 3.6 mmol/L (3.5-5.1); Sodium 146 mmol/L (136-145); Total Protein 5.9 g/dL (6.4-8.2)
[2024-12-29 15:17] LABS: Glucose Urine UA NEGATIVE (NEGATIVE)
[2024-12-29 15:32] LABS: Cast Seen? SEEN #/LPF (NONE SEEN); Crystals Seen? None Seen #/HPF (None Seen); Urine Culture Indicated YES-FRMC
[2024-12-29 15:52] LABS: NT Pro B Type Natriuretic Pept 7329.0 pg/mL (<=1800.0)
--- NOTE | 2024-12-29 16:10 | CT_ITS ---
The [address] [address] Patient Name: ZACHARY MAYNARD MRN: [id number] date: 1945 Sex: F Assigned Patient Location: ER Current Patient Location: ER Accession/Order Number: [id number] Exam Date: 12/29/2024 16:00 Report Date: 12/29/2024 16:56 At the request of: CELIA ESTRADA MD Procedure: CT angio chest CTA Chest with PE protocol TECHNIQUE: Axial imaging with 2-D and 3-D reconstruction. The CT exam was performed using one or more the following dose reduction techniques: Automated exposure control, adjustment of the MA and/or Kv according to patient size, or use of the iterative reconstruction technique. History: Shortness of breath. Elevated d-dimer COMPARISON: 12/17/2024 THYROID: Unremarkable TRACHEA AND BRONCHI: Patent ESOPHAGUS: Unremarkable. HEART: Cardiomegaly PERICARDIAL EFFUSION: None CORONARY ARTERY CALCIFICATION: Present MEDIASTINUM: No adenopathy. No pneumoperitoneum. No mediastinal hematoma. PULMONARY STEVEN: No hilar mass or adenopathy is seen. THORACIC AORTA no aneurysm or dissection. Large volume of atherosclerosis. PULMONARY EMBOLUS: None LUNG NODULE None LUNGS: Mild emphysema PLEURAL EFFUSION: None PNEUMOTHORAX: No pneumothorax seen. CHEST WALL: No abnormality AXILLA: Unremarkable BONY STRUCTURES thoracic spondylosis UPPER ABDOMEN: Images of the upper abdomen are noncontributory. CT/CT angio chest IMPRESSION: No acute pulmonary embolus. Impression dictated by: Louie Nuñez M.D. 12/29/2024 4:56 PM Dictation Location: [employer] Electronically authenticated by: [id number] Y Date: 12/29/2024 16:56
--- OUTSIDE RECORDS SUMMARY | 2024-12-29 18:19 | XMS_ITS | CCD ---
Author Organization [facility] Care Team Providers Care Zinc Etcher Name Role Phone VELASQUEZ BUNCH Unavailable Unavailable [...] Unavailable MD Velasquez Bunch Primary Care Provider [phone] MD Anju Lees Attending Provider [phone] Velasquez Bunch MD Primary Care Provider [phone] CURRY RED Attending Unavailable NORTHIVA KING [...] MUNIER Referring Unavailable NAZZAL, MUNIER Referring Unavailable PIRNCE, AP Referring Unavailable TURNER, RYNE Referring Unavailable [...] 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: [Adhesive tape]Propensity to adverse reactions to cyrk47-55-3737Dvizjlc Reaction, [place], [place] (10 sources)CiprofloxacinDrug Hdhzpbb47-44-6936HnkyvxpRyaae Health- [place], [place] (1 source)Hmg-Coa Reductase Inhibitors (Statins)Propensity to adverse reactions to ledb16-27-2078[place]mxvv[place] (11 sources)Meperidine; 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: [MEPERIDINE]Drug Rmpymvy70-66-4705 [place] (11 sources)moxifloxacin; 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: [MOXIFLOXACIN]Drug Nlqmoox81-29-3420 Anaphylaxis, [place], [place] (11 sources)Nalbuphine; 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: [NALBUPHINE]Drug Dnaxcca24-50-6746Laavsdo [facility]- [place], [place] (11 sources)Promethazine; 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: [PROMETHAZINE]Drug Bkbjbdg79-95-6472 [place] (1 source)Sulfonamides (Antibiotic)Propensity to adverse reactions to drug 13-16-4198YpjbpY[place], [place] (3 sources)black walnut pollen extract; 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: [VHTMMEB-GPO-SMK REDUCTASE INHIBITORS]Drug Hyrasic54-58-7206[facility] (2 sources)CiprofloxacinDrug Fisjfpy81-30-6527Bzz [facility] Repository (2 sources)LevamisoleDrug Cdhaeay88-10-9268PjuPromedica Flower Hospital [facility] (2 sources)MeperidineDrug Hiofqef47-09-4745HtjPromedica Flower Hospital [facility] (2 sources)moxifloxacinDrug Xyvuiqv85-17-9746TjfPromedica Flower Hospital Rep[facility] (2 sources)NalbuphineDrug Oppzvmx67-39-3425Ifh [facility] Repository (1 source)Sulfonamides (Antibiotic)Drug allergy (disorder)91-71-6676Yvv [facility] Repository (4 sources)Sulfacetamide; 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: [sulfacetamide]Drug Mnpxlpq22-88-8773 Unknown Reaction, [facility] (5 sources)Sulfur; 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: [sulfur]Drug Fhbcxfl29-29-3596FjbexyxThe [facility] (4 sources)Lyoyxyh-XNL-BbT Reductase Inhibitor; 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: [Xivlfac-HUH-KhC Reductase Inhibitor]Allergy to ykchgzmiv32-07-6520[facility] (6 sources)atorvastatinDrug Zffrxyd01-55-6803ZkgvbcnFHHB Healthcare Work Phone: (7 sources)cefdinir; 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: [CEFDINIR]Drug Ltmkyel93-75-1655HrzyaszIVMX Healthcare (6 sources)HMG-CoA reductase inhibitorDrug Hehhjtw41-12-9761VtcysvwOFIJ Healthcare (6 sources)MeperidineDrug Ucsaqje58-92-0706NlgjnuzJGFZ Healthcare (6 sources)PromethazineDrug Dkfmcdm13-45-3419GZFM [facility] (6 sources)Sulfonamides (Antibiotic)Drug Rndxbwf99-73-8528NrvspoaHNHC Healthcare (6 sources)Wound Dressing AdhesiveDrug Htedkgw23-04-2881PgunblyRAHT Healthcare (1 source)CiprofloxacinDrug Izauhpf04-89-8519VfzpvauasParkview Health Repository (1 source)MeperidineDrug Jrebpoo64-56-7042DudnnqbaaParkview Health Repository (1 source)moxifloxacinDrug Yewfeym57-34-6374LqgqhubvaParkview Health Repository (1 source)NalbuphineDrug Xnynphf37-37-0849LyigmzhghParkview Health Repository (1 source)PromethazineDrug Aitpiph63-20-4934QdatiisvpParkview Health Repository (1 source)Aspirin; Translations: [ASPIRIN]Drug Rnjbckt23-63-9870ZbbnrndfxdSub[facility] ([facility] source)Sulfonamides (Antibiotic); Translations: [SULFA (SULFONAMIDE ANTIBIOTICS)]Propensity to adverse reactions to drug (disorder)06-27-2017 [facility] Medications Current Medications MedicationDrug Class(es)DatesSig (Normalized)Sig (Original)acetaminophen 500 mg oral tablet (2 sources)Start: 57-95-2535zemc 2 tablets by mouth every six hoursAcetaminophen (Acetaminophen Extra Strength) 500 mg tablet Active 1000 MG PO Every 6 hours 2023 12:00amStart: 03-84-2669mihympdivnkob (TYLENOL) tablet 650 mg acetaminophen 325 mg / butalbital 50 mg / caffeine 40 mg oral tablet (1 source)Barbiturate, Central Nervous System Stimulant, MethylxanthineStart: 04-27-5448fplbzukfid-acetaminophen-caffeine (FIORICET, ESGIC) per tablet 1 [id number] 200 actuat albuterol 0.09 mg/actuat metered dose inhaler (3 sources)beta2-Adrenergic AgonistStart: 95-98-6845ivav 1 puff(s) by inhalation twice dailyAlbuterol Sulfate Active 2 PUFF INHALATION Twice daily April 08, 2023 12:00amStart: 32-71-8456Usswdacow Sulfate Active INHALATION April 08, 2023 12:00amalbuterol 0.833 mg/ml / ipratropium bromide 0.167 mg/ml inhalant solution (2 sources)Anticholinergic, beta2-Adrenergic AgonistStart: 10-11-2019 ipratropium-albuterol (DUONEB) nebulizer solution 1 ampuleStart: 10-09-2019 End: ampule, Inhalation, EVERY 4 HOURS WHILE AWAKE, First dose on 10/09/19 at 1600amiodarone hydrochloride 200 mg oral tablet (5 sources)AntiarrhythmicStart: 15-72-2147unnd 2 tablets by mouth twice daily, then [...] (5 sources)Dihydropyridine Calcium Channel BlockerStart: 06-29-2017 End: 03-10-1493ayoa 1 tablet by mouth once dailyamLODIPine (NORVASC) 10 MG tablet Take 1 tablet by mouth daily 30 tablet 3 10/15/2019 Activeapixaban 5 mg oral tablet (5 sources)Factor Xa Inhibitortake 1 tablet by mouth every twelve hoursEliquis 5 MG tablet 5 mg every 12 (twelve) hours Activeaspirin 81 mg chewable tablet (2 sources)Platelet Aggregation Inhibitor, Nonsteroidal Anti-inflammatory Drug Start: 60-29-5694gbwe 1 tablet by mouth once dailyaspirin 81 MG chewable tablet Take 1 tablet by mouth daily 30 tablet 3 10/16/2019 Activeaugmented betamethasone 0.5 mg/ml topical cream (6 sources)Corticosteroidbetamethasone, augmented, (Diprolene AF) 0.05 % cream Indications: Atopic Dermatitis Apply 1 application topically in the morning and 1 application before bedtime. Activebisacodyl 10 mg rectal suppository (1 source)Stimulant LaxativeStart: 47-11-2487cuqdvxyon (DULCOLAX) suppository 10 mgcalcium chloride 0.0014 meq/ml / potassium chloride 0.004 meq/ml / sodium chloride 0.103 meq/ml / sodium lactate 0.028 meq/ml injectable solution (1 source)Start: 30-15-0155mltxssjg ringers infusiondiclofenac sodium 75 mg delayed release oral tablet (3 sources)Nonsteroidal Anti-inflammatory DrugStart: 30-13-9269Hkpxnaoetp Sodium Active 75 MG PO .prn April 08, 2023 12:00amdocusate sodium 100 mg oral capsule (2 sources)Start: 10-17-2019 End: 50-65-0165foxm 2 capsules by mouth once dailydocusate sodium (COLACE) 100 MG capsule Take 2 capsules by mouth daily 60 capsule 1 10/17/2019 11/17/2019 ActiveStart: 84-19-6771yagexnig sodium (COLACE) capsule 200 mg2 ml dupilumab 150 mg/ml auto-injector (3 sources)Interleukin-4 Receptor alpha AntagonistStart: 01-14-2023 End: 91-51-1048Aqxylada 300 MG/2ML injection Indications: Other atopic dermatitis Inject 2 mL (300 mg) under the skin every 14 (fourteen) days. 4 mL 01/14/2023 01/16/2024 Discontinued (Side effects)empagliflozin 10 mg oral tablet (7 sources)Sodium-Glucose Cotransporter 2 InhibitorStart: 01-78-4721dizu 1 tablet by mouth once dailyEmpagliflozin (Jardiance) 10 mg tablet Active 10 MG PO Daily April 17, 2023 12:00am if FSBS >2000.4 ml enoxaparin sodium 100 mg/ml prefilled syringe (1 source)Low Molecular Weight HeparinStart: 76-53-3483xwtsdd 40 mg by subcutaneous injection once daily40 mg, Subcutaneous, DAILY, First dose on 10/09/19 at 1245ezetimibe 10 mg oral tablet (11 sources)Dietary Cholesterol Absorption InhibitorStart: 32-46-7424oxgh 1 tablet by mouth once daily at bedtimeEzetimibe (Zetia) 10 mg tablet Active 10 MG PO Daily at bedtime April 08, 2023 12:00amfexofenadine hydrochloride 180 mg oral tablet (5 sources)Histamine-1 Receptor AntagonistStart: 01-16-2024 End: 47-42-9514pgoz 1 tablet by mouth once dailyfexofenadine (Brenda) 180 MG tablet Indications: Other atopic dermatitis Take 1 tablet daily, by mouth, 30 days 30 tablet 11 01/16/2024 05/21/2024 Discontinuedfurosemide 20 mg oral tablet (9 sources)Loop DiureticStart: 83-33-7016wzvb 20 mg by mouth once daily Furosemide Active 20 MG PO Daily April 08, 2023 12:00amfurosemide (Lasix) 8 MG/ML solution Take by mouth Daily. Activeglucagon (rdna) 1 mg injection (1 source)Antihypoglycemic AgentStart: 39-06-8937builwzln (rDNA) injection 1 mg 150 ml glucose 50 mg/ml injection (3 sources)Start: 73-81-6290faiqxcrq 5 % solutionStart: 17-30-4758yfvlvqb (GLUTOSE) 40 % oral gel 15 gStart: 76-41-9358uvlkriuj 50 % IV solution hydrALAZINE hydrochloride 100 mg oral tablet (3 sources)Arteriolar VasodilatorStart: 48-27-0667xgif 1 tablet by mouth every eight hourshydrALAZINE (APRESOLINE) 100 MG tablet Take 1 tablet by mouth every 8 hours 90 tablet 3 10/15/2019 ActiveStart: 19-71-5542aqqwHUVFDUE (APRESOLINE) tablet 100 mgStart: 95-71-9218iijdJZPZSKT (APRESOLINE) injection 10 mg hydroCHLOROthiazide 25 mg oral tablet (9 sources)Thiazide DiureticStart: 46-41-7234ftaf 25 mg by mouth once daily in the morningHydrochlorothiazide Active 25 MG PO Every morning April 08, 2023 12:00amtake 2 tablets by mouth in the morninghydroCHLOROthiazide (HYDRODiuril) 12.5 MG tablet Take 25 mg by mouth in the morning. ActivehydrOXYzine hydrochloride 25 mg oral tablet (10 sources)AntihistamineStart: 01-16-2024 End: 17-43-5958xbvx 1 tablet by mouth every 30 days as neededhydrOXYzine HCl (Atarax) 25 MG tablet Indications: Other atopic dermatitis Take 1 tablet, by mouth,as needed for itching at bedtime, 30 day supply. 30 tablet 11 01/16/2024 05/21/2024 DiscontinuedStart: 83-41-3110inbb 1 tablet by mouth four times daily as neededhydrOXYzine HCl (Atarax) 25 MG tablet TAKE 1 TABLET BY MOUTH 4 TIMES A DAY NEEDED FOR 10 DAYS 11/13/2023 Activeinsulin lispro 100 unt/ml injectable solution (2 sources)Insulin AnalogStart: 81-07-2415tdrxoih lispro (HUMALOG) injection vial 0-3 Units24 hr [...] sources)Nonsteroidal Anti-inflammatory Drug, Cyclooxygenase InhibitorStart: 10-15-2019 End: 75-32-1180mryuumxfw (TORADOL) injection 15 mgStart: 10-09-2019 End: 81-77-3216dvmwbctfx (TORADOL) injection 15 mglabetalol (NORMODYNE;TRANDATE) injection syringe 10 mg (1 source)Start: 39-85-1930lbdduaujk (NORMODYNE;TRANDATE) injection syringe 10 mglisinopril 40 mg oral tablet (4 sources)Angiotensin Converting Enzyme InhibitorStart: 24-00-4283hjzt 1 tablet by mouth once dailylisinopril (PRINIVIL;ZESTRIL) 40 MG tablet Take 1 tablet by mouth daily 30 tablet 3 10/16/2019 ActiveStart: 82-01-4673mgavtnlxvw (PRINIVIL;ZESTRIL) tablet 40 mgStart: 10-10-2019 End: 17-87-3917wubvleiicx (PRINIVIL;ZESTRIL) tablet 20 mgmeclizine hydrochloride 25 mg oral tablet (13 sources)AntiemeticStart: 78-93-4288fukd 25 mg by mouth once dailyMeclizine Active 25 MG PO Daily April 08, 2023 12:00amStart: 10-15-2019 End: 45-78-7098udsmytesr (ANTIVERT) tablet 12.5 mgStart: 10-09-2019 End: 22-02-3934ldpxqfoni (ANTIVERT) tablet 25 mgtake 1 tablet by mouth three times daily as needed for dizzinessmeclizine (Antivert) 25 MG tablet Take 25 mg by mouth 3 (three) times a day as needed for dizziness. Djysfb82 hr memantine hydrochloride 28 mg extended release oral capsule (9 sources)Y-vrqceg-W-aspartate Receptor AntagonistStart: 09-30-9164oqgl 28 mg by mouth once daily in the morningMemantine Active 28 MG PO Every morning April 08, 2023 12:00amStart: 05-16-6149Rjtjteppw Active MG PO April 08, 2023 12:00ammemantine (Namenda Titration Pack) 28 x 5 MG & 21 x 10 MG tablet pack Take by mouth See administration instructions. Follow package directions. Mpmaqx85 hr metFORMIN hydrochloride 500 mg extended release oral tablet (9 sources)BiguanideStart: 33-15-8332ypfg 500 mg by mouth twice dailyMetformin Active [...] 100 mg oral tablet (4 sources)beta-Adrenergic BlockerStart: 59-03-0678oine 1 tablet by mouth twice dailymetoprolol tartrate (LOPRESSOR) 100 MG tablet Take 1 tablet by mouth 2 times daily 60 tablet 5 10/15/2019 ActiveStart: 11-83-6221xpemtcjjkd tartrate (LOPRESSOR) tablet 100 mgStart: 10-09-2019 End: 02-99-8679xxad 50 mg by mouth twice daily50 mg, Oral, 2 TIMES DAILY, First dose on 10/09/19 at 1245 End: 93-66-0191bxor 2 tablets by mouth twice dailymetoprolol tartrate [...] (ZOFRAN-ODT) disintegrating tablet 4 mg (1 source)Start: 49-63-6352iingsfuqgiy (ZOFRAN-ODT) disintegrating tablet 4 mg polyethylene glycol 3350 77388 mg powder for oral solution (3 sources)Osmotic LaxativeStart: 10-09-2019 End: 48-25-2689ungt 17 g by mouth once dailypolyethylene glycol (GLYCOLAX) 17 g packet Take 17 g by mouth daily 527 g 5 10/16/2019 11/15/2019 ActivePotassium (6 sources)Potassium (POTASSIMIN PO) Take by mouth. ActivePotassium Chloride (2 sources)Start: 83-47-4601updbkcsdi chloride (KLOR-CON M) extended release tablet 40 mEqStart: 76-52-5918vvwh 10 mL intravenous route every hour as [...] sodium chloride 9 mg/ml injection (4 sources)Start: 08-50-9350dbyitl chloride flush 0.9 % injection 10 mLStart: 10-11-2019 End: 69-42-2001ymixaz chloride flush 0.9 % injection 10 mLStart: 47-45-298336 mL, Intravenous, EVERY 12 HOURS SCHEDULED (2 times per day), First dose on 10/09/19 at 2100Start: 95-28-2144odin 10 mL intravenous route once as ubrsai22 mL, Intravenous, PRN, Line Care, After every IV line use, Starting 10/09/19 at 1227spironolactone 100 mg oral tablet (4 sources)Aldosterone AntagonistStart: 16-59-8462jysu 1 tablet by mouth once dailyspironolactone (ALDACTONE) 100 MG tablet Take 1 tablet by mouth daily 30 tablet 3 10/16/2019 ActiveStart: 10-09-2019 End: 81-75-1341pybvjcagphqusp (ALDACTONE) tablet 50 mgtiotropium 0.018 mg inhalation powder (5 sources)Anticholinergictake 1 capsule by inhalation once dailySpiriva HandiHaler 18 MCG inhalation capsule inhale 1 capsule by inhalation route every day Inhalation Activetriamcinolone acetonide 1 mg/ml topical cream (5 sources)CorticosteroidStart: 52-44-8035lveiyucqdcoza (Kenalog) 0.1 % cream Indications: Other atopic dermatitis Apply to affected areas, up to twice a day when flared, do not use one the face, groin, or underarms, 30 day supply 454 g 11 01/16/2024 ActiveVit C,E-Vc-Nbcvq-Lutein-Zeaxan (Preservision Areds-2) 250-90-40-1 mg capsule (1 source)Start: 35-48-2398Mmq C,Y-Rh-Gbvce-Lutein-Zeaxan (Preservision Areds-2) 250-90-40-1 mg capsule Active 1 TAB PO Twice daily April 17, 2023 12:00am Completed/Discontinued Medications MedicationDrug Class(es)DatesSig (Normalized)Sig (Original)cloNIDine hydrochloride 0.1 mg oral tablet (2 sources)Central alpha-2 Adrenergic AgonistStart: 10-10-2019 End: 93-73-7996qaySCFzse (CATAPRES) tablet 0.1 mgDupilumab (3 sources)Start: 04-08-2023 End: 77-51-5202Bdlnerkhx (Dupixent Pen) 200 mg/1.14 mL pen injector Discontinued 200 MG SUBCUT EVERY 2 WEEKS April 08, 2023 12:00am April 17, 2023 12:56pmStart: 05-43-1481Txkyfuxws (Dupixent Pen) 200 mg/1.14 mL pen injector Active 200 MG SUBCUT EVERY 2 WEEKS April 08, 2023 12:00am2 ml fentaNYL 0.05 mg/ml injection (1 source)Opioid AgonistStart: 10-09-2019 End: 77-87-2862coexeLAK (SUBLIMAZE) injection 50 mcgfluconazole 200 mg oral tablet (1 source)Azole AntifungalStart: 10-16-2019 End: 81-06-4939vifxeskopsw (DIFLUCAN) tablet 200 mggadoteridol (PROHANCE) injection 12 mL (1 source)Start: 10-15-2019 End: 77-29-9056zdicynjoupr (PROHANCE) injection 12 mLgadoteridol (PROHANCE) injection 13 mL (1 source)Start: 10-11-2019 End: 69-03-8217fsadsdtvxee (PROHANCE) injection 13 mL1 ml haloperidol 5 mg/ml injection (1 source)Typical AntipsychoticStart: 10-09-2019 End: 81-25-3096arsjjtdskyl lactate (HALDOL) injection 5 mgStart: 10-09-2019 End: 04-11-7673kbuqbqypmbz lactate (HALDOL) injection 5 mgIohexol (2 sources)Radiographic Contrast AgentStart: 10-10-2019 End: 23-68-9630vpuzcxl (OMNIPAQUE 350) solution 90 mLStart: 10-09-2019 End: 11-62-5931bihxvfq (OMNIPAQUE 350) solution 75 mLirbesartan 300 mg oral tablet (1 source)Angiotensin 2 Receptor Dodie End: 31-26-5499tyfj 1 tablet by mouth once dailyirbesartan (AVAPRO) 300 MG tablet Take 300 mg by mouth daily 0 10/09/2019 Discontinued (LIST CLEANUP) LORazepam 2 mg oral tablet (1 source)BenzodiazepineStart: 10-11-2019 End: 13-98-7553TRJomynff (ATIVAN) tablet 2 mg100 ml magnesium sulfate 10 mg/ml injection (1 source)Start: 10-10-2019 End: 01-18-7968gvzbcqdek sulfate 1 g in dextrose 5% 100 mL IVPB methylPREDNISolone 125 mg injection (1 source)CorticosteroidStart: 10-10-2019 End: 47-04-5418uuhsruJHHPSAWtizfd sodium (SOLU-MEDROL) injection 250 mg2 ml metoclopramide 5 mg/ml prefilled syringe (1 source)Dopamine-2 Receptor AntagonistStart: 10-10-2019 End: 82-80-9107slwodezfpcvkoy (REGLAN) injection 10 mgniCARdipine (CARDENE) 25 mg in dextrose 5 % 250 mL infusion (1 source)Start: 10-09-2019 End: 91-10-2277bcGWUaouqjf (CARDENE) 25 mg in dextrose 5 % 250 mL infusion2 ml ondansetron 2 mg/ml injection (2 sources)Serotonin-3 Receptor AntagonistStart: 10-09-2019 End: 50-00-2704ubmfoaxwfqh (ZOFRAN) injection 4 mgStart: 10-09-2019 End: 95-37-4073ropwaadrfda (ZOFRAN) 4 MG/2ML injectionpotassium bicarbonate 20 meq effervescent oral tablet (1 source)Start: 10-12-2019 End: 54-99-5133kedlavljg bicarb-citric acid (EFFER-K) effervescent tablet 40 mEq valproate (DEPACON) 500 mg in dextrose 5 % 100 mL IVPB (1 source)Start: 10-13-2019 End: 85-75-5004yxmdmywkk (DEPACON) 500 mg in dextrose 5 % 100 mL IVPB Problems Active Problems Problem ClassificationProblemDateDocumented DateEpisodic/ChronicAllergic reactions (4 sources)Atopic dermatitis; Translations: [Other atopic dermatitis]01-16-2024 ChronicAortic; peripheral; and visceral artery aneurysms (3 sources)Abdominal aortic aneurysm without rupture; Translations: [Aneurysm of infrarenal abdominal aorta ]Onset: 065703-42-4404FrkggywTrxxdbl dysrhythmias (2 sources)Paroxysmal atrial fibrillation; Translations: [Paroxysmal atrial fibrillation]Onset: 70-22-9246PabkhjvDbmxyqnxob associated with dizziness or vertigo (6 sources)Dizziness and giddiness; Translations: [Vertigo]Onset: 06-27-2017 EpisodicCongestive heart failure; nonhypertensive (6 sources)Chronic diastolic (congestive) heart failure; Translations: [Acute combined systolic (congestive) and diastolic (congestive) heart failure]Onset: 39-86-8956NjwoqsbXksdrjpj atherosclerosis and other heart disease (2 sources)Atherosclerotic heart disease of [place] coronary artery without angina pectoris; Translations: [Atherosclerotic heart disease of [place] coronary artery without angina pectoris]Onset: 49-28-1950IsiixmlIaxseojg mellitus without complication (5 sources)Diabetes mellitus; Translations: [Type 2 diabetes mellitus without complications]Onset: 906322-74-5063SlimdqoRinwhqmir of lipid metabolism (8 sources)Hyperlipidemia; Translations: [Hyperlipidemia, unspecified]Onset: 526990-56-5655BjcjgzsJgrazfcqk hypertension (3 sources)Hypertensive disorder; Translations: [Essential (primary) hypertension]36-64-3965SisslztLanxv and electrolyte disorders (2 sources)Hypokalemia; Translations: [Hypokalemia]Onset: EpisodicHeadache; including migraine (2 sources)Headache; Translations: [Acute intractable headache]10-10-2019 EpisodicHypertension with complications and secondary hypertension (8 sources)Hypertensive urgency ; Translations: [Secondary hypertension]Onset: 357449-21-1019UctlxdtEhspdn and vomiting (1 source)Nausea and vomiting; Translations: [Nausea and vomiting, intractability of vomiting not specified, unspecified vomiting type]Episodic Nutritional deficiencies (2 sources)Malnutrition (calorie); Translations: [Moderate malnutrition (HCC)] Onset: 166104-70-9108WkoynibJpyjf aftercare (2 sources)Taking high risk medication; Translations: [Other nursing home (current) drug therapy]59-01-2524FpbxmuaaIsgwq circulatory disease (2 sources)Celiac artery compression syndrome; Translations: [Celiac artery compression syndrome]Onset: 04-79-1033OkjuhulIcahz connective tissue disease (3 sources)Hand pain; Translations: [Pain in right hand]97-19-0881YzryumulEvzan connective tissue disease (6 sources)Triggering of digit; Translations: [Trigger finger, right middle finger]39-31-2597PwtkvzkoSzyam connective tissue disease (3 sources)Trigger finger, right middle finger; Translations: [Trigger finger (acquired)]64-22-1393OsadbawuImfkn connective tissue disease (3 sources)Trigger finger, right ring finger; Translations: [Trigger finger (acquired)]00-32-7659BscgadfjIhazbyzhps and visceral atherosclerosis (2 sources)Chronic vascular disorders of intestine; Translations: [Chronic vascular disorders of intestine]Onset: 14-36-2656OvvnypyDhfvmiciau and visceral atherosclerosis (2 sources)Stenosis of right renal artery; Translations: [Right renal artery stenosis (HCC)]Onset: 141388-05-6164Nfjwhbcklkt; intervertebral disc disorders; other back problems (1 source)Acute low back pain; Translations: [Acute low back pain, unspecified back pain laterality, unspecified whether sciatica present]EpisodicSyncope (4 sources)Syncope and collapse; Translations: [SYNCOPE AND COLLAPSE]Onset: 21-79-5987EjuwyfrvEuyvvxkornat (1 source)Hypertensive urgency; Translations: [Hypertensive urgency]Onset: 07-09-9832Dknqgckfpadv (3 sources)COUGH, UNSPECIFIED; Translations: [COUGH, UNSPECIFIED]Onset: 19-59-8217Pdagdhfpgxth (1 source)CONTACT W/AND (SUSP) EXPOS COVID-19; Translations: [CONTACT W/AND (SUSP) EXPOS COVID-19]Onset: 56-36-7462Lwvzcsuzuyfx (1 source)Infrarenal abdominal aortic aneurysm, without rupture; Translations: [Infrarenal abdominal aortic aneurysm, without rupture]Onset: 01-27-2024 Unclassified (1 source)Other ventricular tachycardia; Translations: [Other ventricular tachycardia]Onset: 42-37-4415Utyydeutoabj (1 source)Ventricular tachycardia, unspecified; Translations: [Ventricular tachycardia, unspecified]Onset: 33-59-6877Nolaahkahqqw (1 source)Abdominal aortic aneurysm, without rupture, unspecified; Translations: [Abdominal aortic aneurysm, without rupture, unspecified]Onset: 01-27-2024 Past or Other Problems Problem ClassificationProblemDateDocumented DateEpisodic/ChronicAcute and unspecified renal failure (2 sources)Acute kidney failure, unspecified; Translations: [Acute kidney failure, unspecified]Onset: 23-04-7158RwvcgzeqBinyaza tract disease (2 sources)Calculus of gallbladder without cholecystitis without obstruction; Translations: [Calculus of gallbladder without cholecystitis without obstruction]Onset: 41-66-6911WcynsbekQcuefsh dysrhythmias (2 sources)Palpitations; Translations: [Palpitations]Onset: EpisodicGenitourinary symptoms and ill-defined conditions (2 sources)Hesitancy of micturition; Translations: [Hesitancy of micturition] Onset: 38-41-7235QxnbwclrBjzcpwg and fatigue (2 sources)Weakness; Translations: [Weakness]Onset: 52-89-0407GqpqyaaxHtonb aftercare (2 sources)Other nursing home (current) drug therapy; Translations: [Other predatory animal exterminator (current) drug therapy]Onset: 78-52-6541TffqjbctYqxre gastrointestinal disorders (2 sources)Constipation, unspecified; Translations: [Constipation, unspecified] Onset: 32-53-1193KfqftawwObgda lower respiratory disease (2 sources)Other forms of dyspnea; Translations: [Other forms of dyspnea]Onset: 63-59-3117TmbpbhmsScuai nervous system disorders (2 sources)Other acute postprocedural pain; Translations: [Other acute postprocedural pain]Onset: 27-29-5381AtncpcuqJciwihatfgmr (1 source)COUGH, UNSPECIFIED; Translations: [COUGH, UNSPECIFIED]Onset: 17-40-3571Uzuaaxjonrvl (1 source)Infrarenal abdominal aortic aneurysm, without rupture; Translations: [Infrarenal abdominal aortic aneurysm, without rupture]Onset: 07-22-2024 Unclassified (1 source)Other ventricular tachycardia; Translations: [Other ventricular tachycardia]Onset: 89-62-9269Taesvicqapep (1 source)Ventricular tachycardia, unspecified; Translations: [Ventricular tachycardia, unspecified]Onset: 89-65-0346Fkrlotncvpmk (1 source)Abdominal aortic aneurysm, without rupture, unspecified; Translations: [Abdominal aortic aneurysm, without rupture, unspecified]Onset: 01-27-2024 Results Test NameValueInterpretationReference CqvoaDvuzqkvs72qg 81-64-204847DyhcpjBlanchard [facility]36Spoke with patient and she was currently in the car and not able to check her BP and HR. Asked her to call me back later today when she gets home and checks those. Patient agreed to do so.NormalUnKeenan Private Hospital36on 09-94-072862GfgbwbUondqwhemp of [place] [facility] Eubett08rf 57-52-455427BovphiBlanchard Valley Health System Bluffton HospitalBASIC METABOLIC PANELon 38-43-1896Zohzu gap [Moles/Vol]11 mmol/LNormal7-20UnKeenan Private HospitalComment on above:Performed By: #### [id number] ####[facility] ([facility])[address] [place], [place] [address]Fkgorpx [Mass/Vol]8.6 mg/dLNormal8.6-10.3UnKeenan Private HospitalComment on above:Performed By: #### [id number] ####[facility] ([facility])[address] [place], [place] [address]Rqvjrbxh [Moles/Vol]107 mmol/LNormal 98-107UnKeenan Private HospitalComment on above:Performed By: #### [id number] ####[facility] ([facility])[address] [place], [place] [address]OK4 [Moles/Vol]26 mmol/LTvhulm15-71AoajsfagysKeenan Private HospitalComment on above:Performed By: #### [id number] ####[facility] ([facility])[address] [place], [place] [address]Dwqfeulidp [Mass/Vol]1.28 mg/dLHigh0.60-1.20UnKeenan Private HospitalComment on above:Performed By: #### [id number] ####[facility] ([facility])[address] [place] [address]UOSNWXORCR FILTRATION RATE ML/MIN/1.73 SQ M.REDWGJTND03.1 mL/min/1.73m*2Low>60.0UnKeenan Private HospitalComment on above:Result Comment: [facility]???s estimated glomerular filtration rate (eGFR) will [...] anyone group of individuals.Performed By: #### LAB15 ####[facility] ([facility])[address] [place] [address]Jvqecsi [Mass/Vol]81 mg/vNDbbhtb34-071FkckkmtzwjKeenan Private HospitalComment on above:Performed By: #### [id number] ####[facility] ([facility])[address] [place] [address]Jtcohddss [Moles/Vol]4.5 mmol/LNormal3.5-5.1UnKeenan Private HospitalComment on above:Performed By: #### [id number] ####[facility] ([facility])[address] [place] [address]Fnvaxx [Moles/Vol]139 mmol/L Lapdrz024-802RutatrqnnyKeenan Private HospitalComment on above:Performed By: #### [id number] ####[facility] ([facility])[address] [place], [place] [address]Hlde nitrogen [Mass/Vol]26 mg/dLHigh7-25UnKeenan Private HospitalComment on above:Performed By: #### [id number] ####[facility] ([facility])[address] [place] [address]EBLV NITROGEN/CREATININE (MASS RATIO) IN SER/PLAS20.3Normal [facility] HospitalComment on above:Performed By: #### [id number] ####[facility] ([facility])[address] [place] [address]BVACBAD, IONIZED on 56-00-6101JKUSXNJ IONIZED (MMOL/L) IN BLOOD1.00 mmol/LLow1.15-1.33UnKeenan Private HospitalComment on above:Performed By: #### [id number] ####[facility] RESPIRATORY [id number] [place] [address] USACBCon 08-27-2024 Erythrocyte distribution width (RBC) [Ratio]17.6 %High11.5-15.0UnKeenan Private HospitalComment on above:Performed By: #### [id number] ####[facility] ([facility])[address] [place] [address]MXHSKOHOGYC MEAN CORPUSCULAR HEMOGLOBIN CONCENTRATION (G/DL) BY UNQIDKIFX65.6 g/dLLow32.0-35.0 [facility] HospitalComment on above:Performed By: #### [id number] ####[facility] ([facility])[address] [place] [address]Zxdzdbhzyf (Bld) [Volume fraction]40.9 %Tdyqrd98.0-45.0UnKeenan Private Hospital Comment on above:Performed By: #### [id number] ####[facility] ([facility])[address] [place] [address]Egdzhrigmy (Bld) [Mass/Vol]12.1 g/wCQwlrxi50.0-15.0 [facility] HospitalComment on above:Performed By: #### [id number] ####[facility] ([facility])[address] [place] [address]YKW (RBC) [Entitic mass]29.7 ysJjixgg53.0-33.0UnKeenan Private HospitalComment on above:Performed By: #### [id number] ####[facility] ([facility])[address] [place] [address]NIM (RBC) [Entitic vol]100.2 yLCait95.0-98.0UnKeenan Private HospitalComment on above:Performed By: #### [id number] ####[facility] ([facility])[address] [place] [address]KCIKJSEFX (10*3/UL) IN BLOOD AUTOMATED GKAAR372 10*3/yKPguxlb278-039PdpkmxesoeKeenan Private Hospital Comment on above:Performed By: #### [id number] ####[facility] ([facility])[address] [place] [address]LPL (Bld) [#/Vol]4.08 10*6/uLNormal3.80-5.00 [facility] HospitalComment on above:Performed By: #### [id number] ####[facility] ([facility])[address] [place] [address]KNB (Bld) [#/Vol]7.20 10*3/uLNormal4.00-10.60UnKeenan Private HospitalComment on above:Performed By: #### [id number] ####[facility] ([facility])[address] [place] [address]LMROCYClk 66-78-9729DXOFUSZIwooinQjzxbinxdv [facility] Medical CenterDSon 39-22-6763IAGljngjYzwiwrgfqk [facility] Medical CenterMAGNESIUMon 50-15-0576Lejgwtrgw [Mass/Vol]3.0 mg/dLHigh1.9-2.7UnKeenan Private HospitalComment on above:Performed By: #### [id number] ####[facility] ([facility])[address] [place] [address]Vcudfx Onlyon 16-50-5946Jucqcq Only [id number] Shayy Maynard 1945 F Date Provider Department Center 08/27/2024 08689-TIFSLIBIA KEATING HVCVASEJADAO MA HeartVAS No family history on fileNormalUniversMarymount HospitalPHOSPHORUSon 15-47-1996Vffuvjcjf [Mass/Vol]3.9 mg/dLNormal2.5-5.0UnKeenan Private HospitalComment on above:Performed By: #### [id number] ####[facility] ([facility])[address] [place], [place] [address] 15-93-005237RqxtzsMztunaoumf [facility] Medical CenterANESon 99-25-0468EFPWHxugvrFiriqyxfii [facility] Medical CenterANESNormalUniversity [facility] Medical CenterBASIC METABOLIC PANELon 90-10-8340Lqpdx gap [Moles/Vol]12 mmol/LNormal7-20UnKeenan Private HospitalComment on above:Performed By: #### [id number] ####[facility] ([facility])[address] [place], [place] [address]Ssfzkej [Mass/Vol]8.9 mg/dLNormal 8.6-10.3UnKeenan Private HospitalComment on above:Performed By: #### [id number] ####[facility] ([facility])[address] [place], [place] [address]Ymjeyali [Moles/Vol]106 mmol/FHhmwkh57-061MneworsyfxKeenan Private HospitalComment on above:Performed By: #### LAB15 ####[facility] ([facility]ER)[address] [place], [place] [address]TD3 [Moles/Vol]28 mmol/CDuszpy58-18AhwkygzydpKeenan Private HospitalComment on above:Performed By: #### LAB15 ####[facility] ([facility])[address] [place], [place] [address]Vzbxqvknfc [Mass/Vol]1.27 mg/dLHigh 0.60-1.20UnKeenan Private HospitalComment on above:Performed By: #### LAB15 ####[facility] ([facility])[address], [place] [address]WQYGIQSVTO FILTRATION RATE ML/MIN/1.73 SQ M.LBTFSYEHH18.5 mL/min/1.73m*2Low>60.0UnKeenan Private HospitalComment on above:Result Comment: [facility]???s estimated glomerular filtration rate (eGFR) will [...] group of individuals. Performed By: #### LAB15 ####[facility] ([facility])[address] [place], [place] [address]Bogeidr [Mass/Vol]101 mg/hJRhcj45-855TqvpnfgzwrKeenan Private HospitalComment on above:Performed By: #### LAB15 ####[facility] ([facility])[address] [facility] [place], [place] [address]Ykunqlrde [Moles/Vol]4.5 mmol/LNormal 3.5-5.1UnKeenan Private HospitalComment on above:Performed By: #### LAB15 ####[facility] ([facility])[address] [place] [facility] [facility] [place], [place] [address]Ladxqr [Moles/Vol]141 mmol/JQcivla509-453PkahumnxojKeenan Private HospitalComment on above:Performed By: #### LAB15 ####[facility] ([facility])[address] [place], [place] [address]Cbuf nitrogen [Mass/Vol]25 mg/dLNormal7-25UnKeenan Private HospitalComment on above:Performed By: #### LAB15 ####[facility] ([facility])[address] [place], [place] [address]ODRJ NITROGEN/CREATININE (MASS RATIO) IN SER/PLAS19.7NormalUniversMarymount HospitalComment on above: Performed By: #### [id number] ####[facility] ([facility])[address] [place] [address]YVIgc 92-82-4868Buhmeakrfis distribution width (RBC) [Ratio]17.0 %High 11.5-15.0UnKeenan Private HospitalComment on above:Performed By: #### [id number] ####[facility] ([facility])[address] [place] [address] ERYTHROCYTE MEAN CORPUSCULAR HEMOGLOBIN CONCENTRATION (G/DL) BY XKCSCLONA62.6 g/dLLow32.0-35.0UnKeenan Private HospitalComment on above:Performed By: #### [id number] ####[facility] ([facility])[address] [place] [address] Hematocrit (Bld) [Volume fraction]39.6 %Bkqzvr13.0-45.0UnKeenan Private HospitalComment on above:Performed By: #### [id number] ####[facility] ([facility])[address] [place] [address]Yujfxixyyr (Bld) [Mass/Vol]12.5 g/dL Bdkrhu97.0-15.0UnKeenan Private HospitalComment on above:Performed By: #### [id number] ####[facility] ([facility])[address] [place] [address]KPH (RBC) [Entitic mass]29.5 saDjehpy21.0-33.0UnKeenan Private Hospital Comment on above:Performed By: #### [id number] ####[facility] ([facility])[address] [place] [address]AEU (RBC) [Entitic vol]93.4 wQNidhaz03.0-98.0 [facility] HospitalComment on above:Performed By: #### [id number] ####[facility] ([facility])[address] [place] [address]JHVTIAERP (10*3/UL) IN BLOOD AUTOMATED YMKEA867 10*3/dIBouura370-338FlhydyjfdaKeenan Private HospitalComment on above:Performed By: #### [id number] ####[facility] ([facility])[address] [place] [address]GAZ (Bld) [#/Vol]4.24 10*6/uLNormal 3.80-5.00UnKeenan Private HospitalComment on above:Performed By: #### [id number] ####[facility] ([facility])[address] [place] [address]UQC (Bld) [#/Vol]10.20 10*3/uLNormal4.00-10.60UnKeenan Private HospitalComment on above:Performed By: #### [id number] ####[facility] ([facility])[address] [place] [address]KZZXCCJnz 52-59-3017MLCPOXHHhssxsGtpesaygtz of [place] Medical CenterCT ABDOMEN PELVIS W IV CONTRASTon 64-04-4758AXB ABDOMEN PELVIS W IV CONTRASTNormalUniversity [facility] VA Medical CenterCTA CHEST W IV CONTRASTon 96-68-5011BHF CHEST W IV CONTRASTNormalUniversMarymount HospitalHIGH SENSITIVITY TROPONIN Ion 90-08-5682OF TROPONIN I (NG/L)18 ng/LHigh<15UnKeenan Private HospitalComment on above:Performed By: #### [id number] ####[facility] ([facility])[address] [place] [address]NSna 79-29-0567JVXvkvlt [facility] HospitalLACTIC ACID WITH 4 HOUR REFLEXon 08-26-2024 LACTATE (MMOL/L) IN SER/PLAS0.8 mmol/LNormal0.5-2.2UnKeenan Private HospitalComment on above:Performed By: #### [id number] ####[facility] ([facility])[address] [place] [place] [address]UDOREHEVLbd 42-44-7308Gpcpfxynm [Mass/Vol]2.0 mg/dLNormal1.9-2.7UnKeenan Private HospitalComment on above:Performed By: #### [id number] ####[facility] ([facility])[address], [place] [address]GBEYYTKHjc 64-95-7600DFOIRKXGKwliwq was called to Milagro MELGAR. Questions answered. No further issues or concerns. Visual Basic Developer also called and updated the Deroy on pt room number the overnight caregiver nurse and current status of the pt. He verbalized understanding [facility] CenterNURSNOTEPREOPERATIVE DOPPLERS BOTH PT AND DP MARKED AND DOPPLERABLE IN BILATERAL FEET.[facility] CenterNURSNOTEPt was given call light and family brought to bedside. RN called anesthesia about high bp will be around soon.[facility] NURSNOTEPt stated her knew the meds she took, rn spoke to who was unsure about when the last time she took some of her meds was. Knows she didn't take any today and hasn't had the blood thinner in 2 days.[facility] CenterNURSNOTEPCT took pt to restroom then wheeled her to bay 5. Pt was instructed to remove all belongings and put gown on.NormalUnKeenan Private HospitalOPNOTEon 44-66-6997NSPLDCJwqjioNdntnwxnic [facility] Medical CenterPOCT GLUCOSE METER UNSOLICITED RESULTSon 77-13-0222Wrpnmrp [Mass/Vol]96 mg/eVVdtcpf27-798XmtsdbyavvKeenan Private HospitalComment on above:Order Comment: Waived Testing in the ED is performed under the ED CLIA certificate #[id number].Result Comment: laurita Performed By: #### [id number] ####[facility] (BEAKER)[address] [place], [place] [address]LDWERYV-QRIyf 30-26-9056UBD IN PPP BY COAGULATION ASSAY1.01 Normal0.90-1.10UnKeenan Private HospitalComment on above:Result Comment: [facility] RECOMMENDED INR FOR WARFARIN THERAPY CONDITION INRPROPHYLAXIS OF VENOUS THROMBOSIS 2-3(HIGH-RISK SURGERY)TREATMENT OF VENOUS THROMBOSIS 2-3TREATMENT OF PULMONARY EMBOLISM 2-3PREVENTION OF SYSTEMIC EMBOLISM: 2-3 ACUTE MYOCARDIAL INFARCTION TISSUE HEART VALVES VALVULAR HEART DISEASE ATRIAL FIBRILLATION RECURRENT SYSTEMIC EMBOLISMMECHANICAL HEART VALVE 2.5-3.5 FROM: ORAL ANTICOAGULANTS. MECHANISM OF ACTION, CLINICAL EFFECTIVENESS, AND OPTIMAL THERAPE UTIC RANGE. CHEST 1995;108:231S-246S.Performed By: #### [id number] ####[facility] ([facility])[address] [place], [place] [address]IPSTVGZXRYK TIME (PT) IN PPP BY COAGULATION ASSAY13.3 VkggctcQkweyb23.3-14.8UnKeenan Private HospitalComment on above:Performed By: #### [id number] ####[facility] ([facility])[address] [place], [place] [address]WAYJ AND SCREENon 71-60-8271CE SCREEN NegativeNoalUniCommunity Memorial HospitalComment on above:Performed By: #### [id number] ####[facility] BLOOD BANK,ABO group Nom (Bld)ONormalUnKeenan Private HospitalComment on above:Performed By: #### [id number] ####[facility] BLOOD BANK,RH TYPE IN BLOODPositiveNormalUniCommunity Memorial HospitalComment on above: Performed By: #### [id number] ####[facility] BLOOD BANK,Orders Onlyon 75-47-3352Flqopl [id number] Shayy Maynard 1945 F Date Provider Department Center 08/23/2024 BRIANNA DON [facility] No family history on fileNormalUniverskindred hospital lima of [facility] HospitalOrders Onlyon 55-73-1061Fsipjj [id number] Shayy Maynard 1945 F Date Provider Department Center 08/18/2024 FORREST BOONE HVCVASENDO MA HeartVAS No family history on fileNormalUniversity of [facility] HospitalUrine Culture on 08-93-5394Nqmgjhcq identified Cx Nom (U)<9,000 colonies/ml mixed bacterial skin contaminants 2 Days PERFORMED BY: [facility] [address] [place] [address] PATHOLOGIST [employer] TECHNICIAN ISAI DASH M.D.[facility] Emergency Physician GroupComment on above: Performed By: #### CUU #### [facility] [address] [id number] EXT08yt 62-85-842546Bftkzv and left a message for patient to call the office to scheduleNormalUniversity of [facility] Documentationon [id number] Camanche,Shayy A 1945 F Date Provider Department Center 08/05/2024 2483712-FEQKEADJAIME DOSHI HVCVASENDO MA HeartVAS No family history on fileNormalUniversity of [facility] HospitalFollow-Upon 84-28-6404Jhhxij-UpNormalUniversity of [facility] HospitalOrders Onlyon 49-97-8329Rqtwkx [id number] Camanche,Shayy A 1945 F Date Provider Department Center 08/02/2024 928-VIKTOR RUCKER CARD [facility] No family history on fileNormalUniversity of [facility] HospitalOrders Onlyon 35-53-5135Khbiaw [id number] Camanche,Shayy A 1945 F Date Provider Department Center 07/27/2024 D8461-SMBWADOI, HISTORICAL CARD [facility] No family history on fileNormalUniversity of [facility] Clear LakeTon 00-62-5607KNO [Catalytic activity/Vol]10 U/LNormal7-52UnKeenan Private HospitalComment on above:Performed By: #### [id number] ####[facility] (BEAKER)[address] [place], [place] [address]AMNos 13-96-6642QRB [Catalytic activity/Vol]14 U/DHtigap11-34ByzyqycehhKeenan Private HospitalComment on above:Performed By: #### [id number] ####[facility] ([facility])[address] [place] [address]NQBKTXUKNI, SERUMon 65-88-0216Wljrasukro [Mass/Vol]1.15 mg/dL Normal0.60-1.20UnKeenan Private HospitalComment on above:Performed By: #### [id number] ####[facility] ([facility])[address] [place] [address] GLOMERULAR FILTRATION RATE ML/MIN/1.73 SQ M.MCRPDAFQZ62.9 mL/min/1.73m*2Low>60.0 [facility] HospitalComment on above:Result Comment: [facility]???s estimated glomerular filtration rate (eG FR) [...] anyone group of individuals. Performed By: #### [id number] ####[facility] ([facility])[address] [place] [address]QOB ABDOMEN PELVIS W IV CONTRASTon 33-84-1845DBP ABDOMEN PELVIS W IV CONTRASTInvalid Interpretation CodeUnKeenan Private HospitalLIPID PANELon 40-32-0218SBTW/HDL4.8 mg/dLNormalUniversMarymount HospitalComment on above:Performed By: #### [id number] ####[facility] ([facility])[address] [place] [address]Gdnbvexuuxv [Mass/Vol]217 mg/dLHigh 120-200UnKeenan Private HospitalComment on above:Performed By: #### [id number] ####[facility] ([facility])[address] [place], [place] [address]Uysqsuudb [Mass/Vol]170 mg/dLHigh<150UnKeenan Private HospitalComment on above: Result Comment: TRIGLYCERIDE REFERENCE RANGE:20 YEARS AND OLDER CARDIOVASCULAR RISKLESS THAN 150 mg/dL LOW OEHY392 TO 199 mg/dL BORDERLINE BQGT398 mg/dL AND GREATER HIGH RISKPerformed By: #### [id number] ####[facility] ([facility])[address] [place], [place] [address]Vrjohubjj [Mass/Vol]138 mg/dLNormal0-160UnKeenan Private HospitalComment on above:Performed By: #### [id number] ####[facility] ([facility])[address] [place], [place] [address]Fmunupvet [Mass/Vol]45 mg/oCDwoxkn89-96RizdrkguqzKeenan Private HospitalComment on above:Performed By: #### [id number] ####[facility] ([facility])[address] [place] [address] NON HDL CHOL. (LDL+VLDL)172NormalUniCommunity Memorial HospitalComment on above:Performed By: #### [id number] ####[facility] ([facility])[address] [place], [place] [address]SXCCQ VLDL-C34 mg/dLNormal0-40UnKeenan Private HospitalComment on above:Performed By: #### [id number] ####[facility] ([facility])[address] [place], [place] [address]Rwjaj [id number] Shayy Maynard 1945 F Date Provider Department Center 07/22/2024 2245-[facility] OPD LAB RESOURCE [facility] OPD [facility] C No family history on fileNormalUniversMarymount Hospital36on 06-02-476652Pbac message for pt to return call to schedule [address] Whitten.NormalUnKeenan Private Hospital37on 885274-Rhkozg call radiology at [phone] to schedule testing (CTA abdomen and pelvis) to be done before your next appointmentNormalUniversity [facility] VA Medical CenterFollow-Upon 54-24-7628Uqwtic-UpNormalUniversity [facility] Medical CenterBASIC METABOLIC PANELon 49-72-1856Bxegd gap [Moles/Vol]14 mmol/LNormal7-20 [facility] HospitalComment on above:Performed By: #### LAB15 ####[facility] ([facility])[address] [place], [place] [address]Cclgsux [Mass/Vol]9.1 mg/dLNormal8.6-10.3UnKeenan Private HospitalComment on above:Performed By: #### LAB15 ####[facility] ([facility])[address] [place], [place] [address]Ohoeqokd [Moles/Vol]105 mmol/IItvvcc60-175GauwmysynwKeenan Private HospitalComment on above:Performed By: #### LAB15 ####[facility] ([facility])[address] [place], [place] [address]KO1 [Moles/Vol]27 mmol/LNormal 21-31UnKeenan Private HospitalComment on above:Performed By: #### LAB15 ####[facility] ([facility])[address] [place], [place] [address]Qonowjjzcn [Mass/Vol]1.32 mg/dLHigh0.60-1.20UnKeenan Private HospitalComment on above:Performed By: #### LAB15 ####[facility] ([facility])[address] [place], [place] [address]ACMNXVIQUH FILTRATION RATE ML/MIN/1.73 SQ M.LDRRLLZIM16.8 mL/min/1.73m*2Low>60.0UnKeenan Private HospitalComment on above:Result Comment: [facility]???s estimated glomerular filtration rate (eGFR) will [...] anyone group of individuals.Performed By: #### LAB15 ####[facility] ([facility])[address] [place], [place] [address]Rdkdqbz [Mass/Vol]94 mg/iOUwzmvm37-329NiuitgfdztKeenan Private HospitalComment on above:Performed By: #### LAB15 ####[facility] ([facility])[address] [place], [place] [address]Bjhmlntjd [Moles/Vol]3.8 mmol/LNormal3.5-5.1UnKeenan Private HospitalComment on above:Performed By: #### LAB15 ####[facility] ([facility])[address] [place] [address] Sodium [Moles/Vol]142 mmol/QWqitma374-446QiezpwirepKeenan Private Hospital Comment on above:Performed By: #### LAB15 ####[facility] ([facility])[address] [place], [place] [address]Oslm nitrogen [Mass/Vol]28 mg/dLHigh7-25UnKeenan Private HospitalComment on above:Performed By: #### LAB15 ####[facility] ([facility])[address] [place], [place] [address]OGWA NITROGEN/CREATININE (MASS RATIO) IN SER/PLAS21.2NormalUnKeenan Private HospitalComment on above:Performed By: #### LAB15 ####[facility] ([facility])[address] [place], [place] [address]OYCkz 00-38-5362Pyxouxvlcpj distribution width (RBC) [Ratio] 16.2 %High11.5-15.0UnKeenan Private HospitalComment on above:Performed By: #### [id number] ####[facility] ([facility])[address] [place], [place] [address]NAJVZYWHDAB MEAN CORPUSCULAR HEMOGLOBIN CONCENTRATION (G/DL) BY AUTOMATED 30.9 g/dLLow32.0-35.0UnKeenan Private HospitalComment on above: Performed By: #### [id number] ####[facility] ([facility])[address] [place] [address]Wblhrrjgtc (Bld) [Volume fraction]34.3 %Low36.0-45.0 [facility] HospitalComment on above:Performed By: #### [id number] ####[facility] ([facility])[address] [place] [address]Pnjumobuse (Bld) [Mass/Vol]10.6 g/dLLow12.0-15.0UnKeenan Private HospitalComment on above:Performed By: #### [id number] ####[facility] ([facility])[address] [place] [address]AWL (RBC) [Entitic mass]28.4 tdDpzbnm45.0-33.0UnKeenan Private HospitalComment on above:Performed By: #### [id number] ####[facility] ([facility])[address] [place] [address]GZC (RBC) [Entitic vol] 92.0 nGSbvbrj19.0-98.0UnKeenan Private HospitalComment on above: Performed By: #### [id number] ####[facility] ([facility])[address] [place] [address]SNPCJDXGT (10*3/UL) IN BLOOD AUTOMATED [id number] 10*3/uLNormal 150-400UnKeenan Private HospitalComment on above:Performed By: #### [id number] ####[facility] ([facility])[address] [place] [address]ZPM (Bld) [#/Vol]3.73 10*6/uLLow3.80-5.00UnKeenan Private HospitalComment on above:Performed By: #### [id number] ####[facility] ([facility])[address] [place] [address]LHY (Bld) [#/Vol]8.95 10*3/uLNormal4.00-10.60UnKeenan Private HospitalComment on above:Performed By: #### [id number] ####[facility] ([facility])[address] [facility]QUEZ[facility] RE[facility]ATION HOSPITALUsmanWAL[place], [place] [address]YLJUZXXIJS, URINE, RANDOM on 28-32-5336Zgljrjruvd (U) [Mass/Vol]115.0 mg/nQSrlhge28-167QnvcyodmwpKeenan Private HospitalComment on above:Performed By: #### [id number] ####[facility] ([facility])[address] [place], [place] [address]Rlgedcibg By: #### [id number] ####[facility] ([facility])[address] [facility]GEHELEN [facility] SIM[facility] RE[facility]ABIL[facility]ATION HOSPITALUsmanW[place], [place] [address]Xejvvj-Vcol 04-53-6467Qmcqqe-UpNormalUniversMarymount HospitalLabon 49-76-4500Omg [id number] Shayy Maynard 1945 F Date Provider Department [place] 05/11/20242241-[facility] RESOURCE [facility] Comprehensiv No family history on fileNoAtrium Health Carolinas Rehabilitation CharlotteniCommunity Memorial HospitalMICROALBUMIN, URINE, RANDOMon 07-81-6569Dkaukfv DL <= 20 mg/L (U) [Mass/Vol]1.8 mg/dLNormal [facility] HospitalComment on above:Performed By: #### [id number] ####[facility] ([facility])[address] [place] [address] MICROALBUMIN/CREATININE (MG/G) IN URINE15.7 mg/g CreatNormal0.0-30.0UnKeenan Private HospitalComment on above:Performed By: #### [id number] ####[facility] ([facility])[address] [place], [place] [address]DZOMPUG, URINE, RANDOMon 07-20-2315Ademrvd (U) [Mass/Vol]30.2 mg/dLUNC Health NashniCommunity Memorial HospitalComment on above:Result Comment: There are no established reference values for random urine specimens.Performed By: #### [id number] ####[facility] ([facility])[address] [place], [place] [address]PFILEDBEOWxp 90-17-2340COESVXDWE, TOTAL PRESENCE IN URINENegativeNormnvNegativeSuburban Community Hospital & [facility] Hospital Comment on above:Performed By: #### [id number] ####[facility] ([facility])[address] [place], [place] [address]Mgbojlh (U)ClearNormalClearUnKeenan Private HospitalComment on above:Performed By: #### [id number] ####[facility] ([facility])[address] [place], [place] [address]Bmjce (U)Light-YellowNormalColorless, Yellow, Light-YellowUnKeenan Private HospitalComment on above: Performed By: #### [id number] ####[facility] ([facility])[address] [place], [place] [address]QLCZPCZ (MG/DL) IN URINENormalNormalNormalUniCommunity Memorial HospitalComment on above:Performed By: #### [id number] ####[facility] ([facility])[address] [place], [place] [address]RFOOUXIDFH PRESENCE IN URINENegativeNormnvNegMercy Health St. Charles HospitalComment on above: Performed By: #### [id number] ####[facility] ([facility])[address] [place], [place] [address]Gzwtnpr Ql (U)NegativeNormalNegativeSuburban Community Hospital & Brentwood HospitalComment on above:Performed By: #### [id number] ####[facility] ([facility])[address] [place], [place] [address]ZPXVLTEQK ESTERASE PRESENCE IN URINE BY TEST STRIPSmallAbnormalNegMercy Health St. Charles HospitalComment on above:Performed By: #### [id number] ####[facility] ([facility])[address] [place], [place] [address]WIUJDPL PRESENCE IN URINENegativeNormalNegativeSuburban Community Hospital & Brentwood HospitalComment on above:Performed By: #### [id number] ####[facility] ([facility])[address] [place] [address]wU (U)5.5 [pH]Normal 5.0-8.0[facility] HospitalComment on above:Performed By: #### [id number] ####[facility] ([facility])[address] [place] [address]Zbfrosj (U) [Mass/Vol]NegativeNormalNegativeUnKeenan Private HospitalComment on above:Performed By: #### [id number] ####[facility] ([facility])[address] [place] [address]Lpzbdnpk gravity (U) [Rel density]1.170Ohfgvn3.010-1.030 [facility] HospitalComment on above:Performed By: #### [id number] ####[facility] ([facility])[address] [place], [place] [address]KSZYNDYGEKEO (MG/DL) IN URINENormalNormalNormalUniversMarymount HospitalComment on above:Performed By: #### [id number] ####[facility] ([facility])[address] [place], [place] [address]ELQFAKEYWM MICROSCOPICon 20-06-3931DDH (#/HPF) IN URINE SEDIMENT0-2NormalNone Seen, 0-2UnKeenan Private HospitalComment on above:Performed By: #### [id number] ####[facility] ([facility])[address] [place], [place] [address]AHWATQVC EPITHELIAL CELLS (#/LPF) IN URINE SEDIMENTFewNormal None Seen, Occasional, FewUnKeenan Private HospitalComment on above: Performed By: #### [id number] ####[facility] ([facility])[address] [place], [place] [address]TMW (LEUKOCYTE) (#/HPF) IN URINE SEDIMENT3-5AbnormalNone Seen, 0-2UnKeenan Private HospitalComment on above:Performed By: #### [id number] ####[facility] ([facility])[address] [place], [place] [address]-Gipebl call radiology at [phone] to schedule ultrasound testing. Can be scheduled same day as follow up appointmentsNormalUniversMarymount HospitalFollow-Upon 84-22-2625Nsmnex-UpNormalUniversity [facility] Follow-Upon 36-09-1536Tvgoyy-UpNormalUniversity [facility] Center36on 47-32-761628YxmtlvKlpvqietgj [facility] CenterOrders Onlyon 02-19-2024 Orders [id number] Shayy Maynard 1945 F Date Provider Department Center 02/19/2024 JF MOTTA [facility] No family history on fileNormalUniversMarymount HospitalDocumentation on 01-28-2309QolucjfmvtcvmCsrtijLcecubbihf of [place] [facility] Eokhak14ky 94-25-662859UewiykJlrnawfahu of [place] [facility] Hbepeb57RzefesJzesrhgakvMarymount HospitalBASIC METABOLIC PANELon 77-07-1139Dbxkk gap [Moles/Vol]9 mmol/LNormal7-20UnKeenan Private HospitalComment on above:Performed By: #### [id number] ####[facility] ([facility])[address] [facility] [address] Calcium [Mass/Vol]8.3 mg/dLLow8.6-10.3UnKeenan Private HospitalComment on above:Performed By: #### [id number] ####[facility] ([facility])[address] [place], [place] [address]Chftamas [Moles/Vol]107 mmol/FGgpviq34-961JfweadpzgsKeenan Private HospitalComment on above:Performed By: #### [id number] ####[facility] ([facility])[address] [place], [place] [address]TR2 [Moles/Vol]29 mmol/LNormal 21-31UnKeenan Private HospitalComment on above:Performed By: #### [id number] ####[facility] ([facility])[address] [place] [address]Zhumyakuad [Mass/Vol]1.70 mg/dLHigh0.60-1.20UnKeenan Private HospitalComment on above:Performed By: #### [id number] ####[facility] ([facility])[address] [place] [address]LJJKUMAMHY FILTRATION RATE ML/MIN/1.73 SQ M.SEZWYIGVZ91.1 mL/min/1.73m*2Low>60.0UnKeenan Private HospitalComment on above:Result Comment: [facility]???s estimated glomerular filtration rate (eGFR) will [...] anyone group of individuals.Performed By: #### [id number] ####[facility] ([facility])[address] [place] [address]Puqldso [Mass/Vol]85 mg/iBQclyeh46-309OjyvitzgcoKeenan Private HospitalComment on above:Performed By: #### [id number] ####[facility] ([facility])[address] [place] [address]Wmonrubpn [Moles/Vol]4.6 mmol/LNormal3.5-5.1UnKeenan Private HospitalComment on above:Performed By: #### [id number] ####[facility] ([facility])[address] [place] [address] Sodium [Moles/Vol]140 mmol/GEebulz133-928KvdejnmdilKeenan Private Hospital Comment on above:Performed By: #### [id number] ####[facility] ([facility])[address] [place], [place] [address]Vxyy nitrogen [Mass/Vol]21 mg/dLNormal7-25 [facility] HospitalComment on above:Performed By: #### [id number] ####[facility] ([facility])[address] [place], [place] [address]VEMG NITROGEN/CREATININE (MASS RATIO) IN SER/PLAS12.4NormalUniversMarymount HospitalComment on above:Performed By: #### [id number] ####[facility] ([facility])[address] [place] [address]XHC WITH AUTO DIFFERENTIALon 68-99-5271Fzjgjxosndn distribution width (RBC) [Ratio]16.7 %High11.5-15.0 [facility] HospitalComment on above:Performed By: #### [id number] ####[facility] ([facility])[address] [place], [place] [address]OKHHVWTIZSU MEAN CORPUSCULAR HEMOGLOBIN CONCENTRATION (G/DL) BY STGAWAOSP19.1 g/dLLow32.0-35.0 [facility] HospitalComment on above:Performed By: #### [id number] ####[facility] ([facility])[address] [place], [place] [address]Cgzyzlvpnx (Bld) [Volume fraction]27.9 %Low36.0-48.0UnKeenan Private HospitalComment on above:Performed By: #### [id number] ####[facility] ([facility])[address] [place], [place] [address]Wuguueutzn (Bld) [Mass/Vol]8.4 g/dLLow12.0-15.0UnKeenan Private HospitalComment on above:Performed By: #### [id number] ####[facility] ([facility])[address] [place], [place] [address]RJO (RBC) [Entitic mass] 27.5 bhAfpfle17.0-33.0UnKeenan Private HospitalComment on above: Performed By: #### [id number] ####[facility] ([facility])[address] [place], [place] [address]OOY (RBC) [Entitic vol]91.5 eJUqwxun22.0-98.0UnKeenan Private HospitalComment on above:Performed By: #### [id number] ####[facility] ([facility])[address] [place] [address]APEG (PER 100 WBCS) BY AUTOMATED COUNT0.0 %Njfvrr5EuleohbsosKeenan Private HospitalComment on above: Performed By: #### [id number] ####[facility] ([facility])[address] [place] [address]QFPXQTZVF (10*3/UL) IN BLOOD AUTOMATED ASPFJ583 10*3/uLNormal 150-400UnKeenan Private HospitalComment on above:Performed By: #### [id number] ####[facility] ([facility])[address] [place] [address]PRT (Bld) [#/Vol]3.05 10*6/uLLow3.80-5.00UnKeenan Private HospitalComment on above:Performed By: #### [id number] ####[facility] ([facility])[address] [place] [address]CCL (Bld) [#/Vol]5.28 10*3/uLNormal4.00-10.60UnKeenan Private HospitalComment on above:Performed By: #### [id number] ####[facility] ([facility])[address] [place] [address]UMgf 67-51-0007ZKLkgqnu [facility]wood HospitalMAGNESIUMon 69-37-1470Pstruiysv [Mass/Vol]1.9 mg/dLNormal1.9-2.7UnKeenan Private HospitalComment on above:Performed By: #### [id number] ####[facility] ([facility])[address] [place] [address]VVBRKS DIFFERENTIALon 47-20-7357BOODLSBYY (10*3/UL) IN BLOOD BY CALCULATION 0.00 10*3/uLNormal0.00-0.20UnKeenan Private HospitalComment on above: Performed By: #### [id number] ####[facility] ([facility])[address] [place], [place] [address]VJCCWSCMQ/100 LEUKOCYTES IN BLOOD BY AUTOMATED COUNT0.0 % Normal0.0-1.0UnKeenan Private HospitalComment on above:Performed By: #### [id number] ####[facility] ([facility])[address] [place] [address] EOSINOPHILS (10*3/UL) IN BLOOD BY CALCULATION0.21 10*3/uLNormal0.00-0.50 [facility] HospitalComment on above:Performed By: #### [id number] ####[facility] ([facility])[address] [place], [place] [address]LDPEMRQHJHX/100 LEUKOCYTES IN BLOOD BY AUTOMATED COUNT4.0 %Normal0.0-6.0UnKeenan Private HospitalComment on above:Performed By: #### [id number] ####[facility] ([facility])[address] [place], [place] [address]TNRNCYHNGKS (10*3/UL) IN BLOOD BY CALCULATION0.81 10*3/uLLow1.20-4.00UnKeenan Private HospitalComment on above:Performed By: #### [id number] ####[facility] ([facility])[address] [place], [place] [address]QQWJJTGKEIC/100 LEUKOCYTES IN BLOOD BY AUTOMATED COUNT15.4 % Low20.0-45.0UnKeenan Private HospitalComment on above:Performed By: #### [id number] ####[facility] ([facility])[address] [place] [address] METAMYELOCYTES (10*3/UL) IN BLOOD BY CALCULATION0.04 10*3/uLHigh0.00UnKeenan Private HospitalComment on above:Performed By: #### [id number] ####[facility] ([facility])[address] [place], [place] [address]IXZZTHTHISCPVN/100 LEUKOCYTES IN BLOOD CELLAVISION0.7 %High0.0-0.0UnKeenan Private HospitalComment on above:Performed By: #### [id number] ####[facility] ([facility])[address] [place], [place] [address]ESHQRJABW (10*3/UL) IN BLOOD BY CALCUATION0.25 10*3/uLNormal0.10-1.00UnKeenan Private HospitalComment on above:Performed By: #### [id number] ####[facility] ([facility])[address] [place], [place] [address]XQWBEDTEN/100 LEUKOCYTES IN BLOOD BY AUTOMATED COUNT4.7 %Low 5.0-12.0UnKeenan Private HospitalComment on above:Performed By: #### [id number] ####[facility] ([facility])[address] [place] [address] MYELOCYTES (10*3/UL) IN BLOOD BY CALCULATION0.04 10*3/uLHigh0.00UnKeenan Private HospitalComment on above:Performed By: #### [id number] ####[facility] ([facility])[address] [place], [place] [address]RNMEWLWXNM/100 LEUKOCYTES IN BLOOD CELLAVISION0.7 %High0.0-0.0UnKeenan Private HospitalComment on above:Performed By: #### [id number] ####[facility] ([facility])[address] [place], [place] [address]PBYDPDESMGM (10*3/UL) IN BLOOD BY CALCULATION3.9 10*3/uL Normal1.6-7.6UnKeenan Private HospitalComment on above:Performed By: #### [id number] ####[facility] ([facility])[address] [place] [address] NEUTROPHILS/100 LEUKOCYTES IN BLOOD BY AUTOMATED COUNT74.5 %High40.0-72.0 [facility] HospitalComment on above:Performed By: #### [id number] ####[facility] ([facility])[address] [place], [place] [address]TCNFBP CELLS/100 LEUKOCYTES IN BLOOD0 %Avwqtm3KmgsosyegzKeenan Private HospitalComment on above:Performed By: #### [id number] ####[facility] ([facility])[address] [place], [place] [address]HFSPLTZGL GIANT PRESENCE IN BLOOD BY LIGHT MICROSCOPYPresent NormalUnKeenan Private HospitalComment on above:Performed By: #### [id number] ####[facility] ([facility])[address] [place], [place] [address]SQDRJG CELLS/100 LEUKOCYTES IN BLOOD CELLAVISIONPresentNormalUniversMarymount HospitalComment on above:Performed By: #### [id number] ####[facility] ([facility])[address] [place], [place] [address]FTCOOMX LYMPHOCYTES (10*3/UL) IN BLOOD BY CALCULATION0.00 10*3/uLNormal0.00UnKeenan Private HospitalComment on above:Performed By: #### [id number] ####[facility] ([facility])[address] [place], [place] [address]WKHBDYK LYMPHOCYTES/100 LEUKOCYTES IN BLOOD CELLAVISION0.0 % Normal0.0-0.0UnKeenan Private HospitalComment on above:Performed By: #### [id number] ####[facility] ([facility])[address] [place] [address] NURSNOTEon 22-45-8995CZQOXOKZMvpkcrGdnfgfjspk of [place] Medical CenterPOCT GLUCOSE METER UNSOLICITED RESULTSon 20-44-4351Rwvhqeh [Mass/Vol]103 mg/dLNormal 70-105UnKeenan Private HospitalComment on above:Order Comment: Waived Testing in the ED is performed under the ED CLIA certificate #[id number].Result Comment: mmjik20Pgphiuhgk By: #### [id number] ####[facility] ([facility])[address] [place], [place] [address]ft 36-43-016811YsrhlqSdlemkfkif of [place] [facility] Tcogyn06AocvzgAiwirthyvyMarymount Hospital30The patient is Moderately Stable - Low risk of patient condition declining or worsening The patient's goals for the shift include Comfort The clinical goals for the shift include VSS, safetyNormalUniversity [facility]30NormalUniversity [facility] VA Medical CenterBASIC METABOLIC PANELon 72-39-8718Pjlxi gap [Moles/Vol]14 mmol/LNormal7-20UnKeenan Private HospitalComment on above:Performed By: #### [id number] ####[facility] ([facility])[address] [place], [place] [address]Bkzrnly [Mass/Vol]8.0 mg/dLLow8.6-10.3 [facility] HospitalComment on above:Performed By: #### [id number] ####[facility] ([facility])[address] [place], [place] [address]Wpjyuvfm [Moles/Vol]105 mmol/VUwnuob42-750MabatgrkxwKeenan Private HospitalComment on above:Performed By: #### [id number] ####[facility] ([facility])[address] [place], [place] [address]ML0 [Moles/Vol]26 mmol/RYoxsfz09-23EahysrkmruKeenan Private HospitalComment on above:Performed By: #### [id number] ####[facility] ([facility])[address] [place], [place] [address]Xvmujdqkmm [Mass/Vol]1.99 mg/dLHigh 0.60-1.20UnKeenan Private HospitalComment on above:Performed By: #### [id number] ####[facility] ([facility])[address] [place], [place] [address]RYOYQPENJX FILTRATION RATE ML/MIN/1.73 SQ M.NIWVATIJU71.9 mL/min/1.73m*2Low>60.0UnKeenan Private HospitalComment on above:Result Comment: [facility]???s estimated glomerular filtration rate (eGFR) will [...] group of individuals. Performed By: #### [id number] ####[facility] ([facility])[address] [place], [place] [address]Fhhxqxe [Mass/Vol]80 mg/wANtglcv88-630VqiuxlejkyKeenan Private HospitalComment on above:Performed By: #### [id number] ####[facility] ([facility])[address] [place], [place] [address]Tnkirdvfy [Moles/Vol]4.5 mmol/LNormal 3.5-5.1UnKeenan Private HospitalComment on above:Performed By: #### [id number] ####[facility] ([facility])[address] [place], [place] [address]Aqvvbh [Moles/Vol]140 mmol/RJmhiea704-625MjnljdcdidKeenan Private HospitalComment on above:Performed By: #### [id number] ####[facility] ([facility])[address] [place], [place] [address]Tayb nitrogen [Mass/Vol]28 mg/dLHigh7-25UnKeenan Private HospitalComment on above:Performed By: #### [id number] ####[facility] ([facility])[address] [place], [place] [address]QGJM NITROGEN/CREATININE (MASS RATIO) IN SER/PLAS14.1NormalUnKeenan Private HospitalComment on above: Performed By: #### [id number] ####[facility] ([facility])[address] [place], [place] [address]YPC WITH AUTO DIFFERENTIALon 52-15-8780Wzlxlzounqa distribution width (RBC) [Ratio]17.1 %High11.5-15.0UnKeenan Private HospitalComment on above:Performed By: #### [id number] ####[facility] ([facility])[address] [place], [place] [address]SEJYNWZXPMB MEAN CORPUSCULAR HEMOGLOBIN CONCENTRATION (G/DL) BY IYDHBZGPJ95.6 g/dLLow32.0-35.0UnKeenan Private HospitalComment on above:Performed By: #### [id number] ####[facility] ([facility])[address] [place] [address]Hwvzwnuhfo (Bld) [Volume fraction]29.0 %Low36.0-48.0 [facility] HospitalComment on above:Performed By: #### [id number] ####[facility] ([facility])[address] [place] [address]Nugkrresxa (Bld) [Mass/Vol]8.3 g/dLLow12.0-15.0UnKeenan Private HospitalComment on above:Performed By: #### [id number] ####[facility] ([facility])[address] [place] [address]NUWLILUZ PLATELET FRACTION %1.5 %Normal0.8-6.3UnKeenan Private HospitalComment on above:Performed By: #### [id number] ####[facility] ([facility])[address] [place] [address]ETT (RBC) [Entitic mass] 27.8 ouSokmpr52.0-33.0UnKeenan Private HospitalComment on above: Performed By: #### [id number] ####[facility] ([facility])[address] [place] [address]UMQ (RBC) [Entitic vol]97.0 cOMbrdap17.0-98.0UnKeenan Private HospitalComment on above:Performed By: #### [id number] ####[facility] ([facility])[address] [place] [address]YQJW (PER 100 WBCS) BY AUTOMATED COUNT0.0 %Skeszh9MnpbzqldsaKeenan Private HospitalComment on above: Performed By: #### [id number] ####[facility] ([facility])[address] [place] [address]GMPZNTRSD (10*3/UL) IN BLOOD AUTOMATED [id number] 10*3/uLNormal 150-400UnKeenan Private HospitalComment on above:Performed By: #### [id number] ####[facility] ([facility])[address] [place] [address]RUF (Bld) [#/Vol]2.99 10*6/uLLow3.80-5.00UnKeenan Private HospitalComment on above:Performed By: #### [id number] ####[facility] ([facility])[address] [place] [address]ZBK (Bld) [#/Vol]7.00 10*3/uLNormal4.00-10.60UnKeenan Private HospitalComment on above:Performed By: #### [id number] ####[facility] ([facility])[address] [place] [address]TGYQSWYXVlw 02-11-2024 Magnesium [Mass/Vol]2.2 mg/dLNormal1.9-2.7UnKeenan Private Hospital Comment on above:Performed By: #### [id number] ####[facility] ([facility])[address] [place] [id number] DIFFERENTIALon [id number] PRESENCE IN BLOOD BY LIGHT MICROSCOPYSlightNormalUniversMarymount HospitalComment on above:Performed By: #### [id number] ####[facility] ([facility])[address] [place] [id number] (10*3/UL) IN BLOOD BY CALCULATION0.07 10*3/uLNormal0.00-0.20UnKeenan Private HospitalComment on above:Performed By: #### [id number] ####[facility] ([facility])[address] [place] [id number]/100 LEUKOCYTES IN BLOOD BY AUTOMATED COUNT1.0 %Normal0.0-1.0UnKeenan Private HospitalComment on above: Performed By: #### [id number] ####[facility] ([facility])[address] [place] [id number] (10*3/UL) IN BLOOD BY CALCULATION0.27 10*3/uL Normal0.00-0.50UnKeenan Private HospitalComment on above:Performed By: #### [id number] ####[facility] ([facility])[address] [place] [address] EOSINOPHILS/100 LEUKOCYTES IN BLOOD BY AUTOMATED COUNT3.9 %Normal0.0-6.0 [facility] HospitalComment on above:Performed By: #### [id number] ####[facility] ([facility])[address] [place], [place] [address]NUCAOFLJ GRANULOCYTES (10*3/UL) IN BLOOD BY CALCULATION0.34 10*3/uLHigh0.00-0.20 [facility] HospitalComment on above:Performed By: #### [id number] ####[facility] ([facility])[address] [place], [place] [address]QRWACQWJ GRANULOCYTES/100 LEUKOCYTES IN BLOOD BY AUTOMATED COUNT4.9 %High0.0-1.0 [facility] HospitalComment on above:Performed By: #### [id number] ####[facility] ([facility])[address] [place], [place] [address]EPHOMZJVRFN (10*3/UL) IN BLOOD BY CALCULATION1.00 10*3/uLLow1.20-4.00[facility] HospitalComment on above:Performed By: #### [id number] ####[facility] ([facility])[address] [place], [place] [address]KRLKKYHEGLL/100 LEUKOCYTES IN BLOOD BY AUTOMATED COUNT14.3 %Low20.0-45.0UnKeenan Private HospitalComment on above:Performed By: #### [id number] ####[facility] ([facility])[address] [place], [place] [address]ZARUVTUWBJ (PRESENCE) IN BLOOD BY LIGHT MICROSCOPYSlight NormalUnKeenan Private HospitalComment on above:Performed By: #### [id number] ####[facility] ([facility])[address] [place] [address] MONOCYTES (10*3/UL) IN BLOOD BY CALCUATION0.68 10*3/uLNormal0.10-1.00UnKeenan Private HospitalComment on above:Performed By: #### [id number] ####[facility] ([facility])[address] [facility] [place] [address]QNSLVXIJQ/100 LEUKOCYTES IN BLOOD BY AUTOMATED COUNT9.7 %Normal5.0-12.0UnKeenan Private HospitalComment on above:Performed By: #### [id number] ####[facility] ([facility])[address] [facility] [place], [place] [address]HZIFGJBTTLC (10*3/UL) IN BLOOD BY CALCULATION4.6 10*3/uLNormal1.6-7.6UnKeenan Private HospitalComment on above:Performed By: #### [id number] ####[facility] ([facility])[address] [facility], [place] [address]TUOPCVPHXMV/100 LEUKOCYTES IN BLOOD BY AUTOMATED COUNT66.2 % Kspflc36.0-72.0UnKeenan Private HospitalComment on above:Performed By: #### [id number] ####[facility] ([facility])[address] [facility] [place] [address] POIKILOCYTOSIS (PRESENCE) IN BLOOD BY LIGHT MICROSCOPYSlightNormalUniCommunity Memorial HospitalComment on above:Performed By: #### [id number] ####[facility] ([facility])[address] [facility], [place] [address]RDGY GLUCOSE METER UNSOLICITED RESULTSon 04-75-7085Wethxjw [Mass/Vol]140 mg/aYUbfx13-332NtbigfsaxlKeenan Private HospitalComment on above:Order Comment: Waived Testing in the ED is performed under the ED CLIA certificate #[id number].Result Comment: [email or web address] Performed By: #### [id number] ####[facility] ([facility])[address] [place], [place] [address]Jsojacp [Mass/Vol]158 mg/pNRmuu83-625GkshrixyifKeenan Private HospitalComment on above:Order Comment: Waived Testing in the ED is performed under the ED CLIA certificate #[id number].Result Comment: [email or web address] Performed By: #### [id number] ####[facility] ([facility])[address] [place], [place] [address]Edwvxae [Mass/Vol]164 mg/wHFxnx30-819QvgmvhrsihKeenan Private HospitalComment on above:Order Comment: Waived Testing in the ED is performed under the ED CLIA certificate #[id number].Result Comment: [email or web address] Performed By: #### [id number] ####[facility] ([facility])[address] [place], [place] [address]Cyutqoy [Mass/Vol]96 mg/tVUyqmyc18-934IqzzhewlfqKeenan Private HospitalComment on above:Order Comment: Waived Testing in the ED is performed under the ED CLIA certificate #[id number].Result Comment: [email or web address] Performed By: #### [id number] ####[facility] ([facility])[address] [place], [place] [address]si 22-77-746025BuuqysTtnhbhepwr [facility]30 The patient is Moderately Stable - Low risk of patient condition declining or worsening The patient's goals for the shift include Comfort The clinical goals for the shift include VSS, safetyNormalUniversity of Ut Health East Texas Athens HospitalYtickj37HttnpqKoryuwkhrp [facility] Medical CenterBASIC METABOLIC PANELon 00-39-0402Wwsnw gap [Moles/Vol]10 mmol/LNormal7-20UnKeenan Private HospitalComment on above:Performed By: #### [id number] ####[facility] ([facility])[address] [place], [place] [address]Dvhpaci [Mass/Vol]8.0 mg/dLLow8.6-10.3 [facility] HospitalComment on above:Performed By: #### [id number] ####[facility] ([facility])[address] [place], [place] [address]Ykechwrb [Moles/Vol]106 mmol/IMmyufk97-752QgreswzxlpKeenan Private HospitalComment on above:Performed By: #### [id number] ####[facility] ([facility])[address] [place], [place] [address]IA4 [Moles/Vol]29 mmol/LIqqeav14-78VbqjocpxfqKeenan Private HospitalComment on above:Performed By: #### [id number] ####[facility] ([facility])[address] [place] [address]Ezeobzotoo [Mass/Vol]2.41 mg/dLHigh 0.60-1.20UnKeenan Private HospitalComment on above:Performed By: #### [id number] ####[facility] ([facility])[address] [facility] [place] [address]RJBAHIOCAF FILTRATION RATE ML/MIN/1.73 SQ M.KQWVNAEIW63.8 mL/min/1.73m*2Low>60.0UnKeenan Private HospitalComment on above:Result Comment: [facility]???s estimated glomerular filtration rate (eGFR) will [...] group of individuals. Performed By: #### [id number] ####[facility] ([facility])[address] [facility] [place] [place] [address]Etanmcl [Mass/Vol]81 mg/gBMiinpy04-756HtjheaykctKeenan Private HospitalComment on above:Performed By: #### [id number] ####[facility] ([facility])[address] [place] [address]Lffftunqf [Moles/Vol]4.1 mmol/LNormal 3.5-5.1UnKeenan Private HospitalComment on above:Performed By: #### [id number] ####[facility] ([facility])[address] [facility] [address]Zmtxin [Moles/Vol]141 mmol/XWadmhq041-401PurzgmkibaKeenan Private HospitalComment on above:Performed By: #### [id number] ####[facility] ([facility])[address] [place], [place] [address]Rukf nitrogen [Mass/Vol]36 mg/dLHigh7-25UnKeenan Private HospitalComment on above:Performed By: #### [id number] ####[facility] ([facility])[address] [place], [place] [address]IMYL NITROGEN/CREATININE (MASS RATIO) IN SER/PLAS14.9NormalUniversMarymount HospitalComment on above: Performed By: #### [id number] ####[facility] ([facility])[address] [place] [address]QWE WITH AUTO DIFFERENTIALon 49-89-2593Xgkfkfyfc (Bld) [#/Vol]0.05 10*3/uLNormal0.00-0.20UnKeenan Private HospitalComment on above: Performed By: #### [id number] ####[facility] ([facility])[address] [place], [place] [address]Uwxozocoe/100 WBC (Bld)0.7 %Normal0.0-1.0UnKeenan Private HospitalComment on above:Performed By: #### [id number] ####[facility] ([facility])[address] [place], [place] [address]Ytwfwxbqyfi (Bld) [#/Vol]0.29 10*3/uL Normal0.00-0.50UnKeenan Private HospitalComment on above:Performed By: #### [id number] ####[facility] ([facility])[address] [place] [address] Eosinophils/100 WBC (Bld)4.2 %Normal0.0-6.0UnKeenan Private Hospital Comment on above:Performed By: #### [id number] ####[facility] ([facility])[address] [place], [place] [address]Vrljbtokdtf distribution width (RBC) [Ratio]16.9 % High11.5-15.0UnKeenan Private HospitalComment on above:Performed By: #### [id number] ####[facility] ([facility])[address] [place] [address] ERYTHROCYTE MEAN CORPUSCULAR HEMOGLOBIN CONCENTRATION (G/DL) BY ELKBGJMKK41.1 g/dLLow32.0-35.0UnKeenan Private HospitalComment on above:Performed By: #### [id number] ####[facility] ([facility])[address] [place], [place] [address]Punksbjqjd (Bld) [Volume fraction]28.6 %Low36.0-48.0UnKeenan Private HospitalComment on above:Performed By: #### [id number] ####[facility] ([facility])[address] [place], [place] [address]Baxlfukdyh (Bld) [Mass/Vol]8.6 g/dLLow 12.0-15.0UnKeenan Private HospitalComment on above:Performed By: #### [id number] ####[facility] ([facility])[address] [place], [place] [address]Zzvfldws granulocytes (Bld) [#/Vol]0.32 10*3/uLHigh0.00-0.20UnKeenan Private HospitalComment on above:Performed By: #### [id number] ####[facility] ([facility])[address] [place], [place] [address]Cjkaeuky granulocytes/100 WBC (Bld)4.6 %High0.0-1.0UnKeenan Private HospitalComment on above:Performed By: #### [id number] ####[facility] ([facility])[address] [place] [address] Lymphocytes (Bld) [#/Vol]1.03 10*3/uLLow1.20-4.00UnKeenan Private HospitalComment on above:Performed By: #### [id number] ####[facility] ([facility])[address] [place], [place] [address]Dtfxqovlbec/100 WBC (Bld)14.9 %Low 20.0-45.0[facility] of [facility]arcenas Medical CenterComment on above:Performed By: #### [id number] ####[facility] ([facility])[address] [place] [address]XXX (RBC) [Entitic mass]27.8 nnRxhtup42.0-33.0UnKeenan Private Hospital Comment on above:Performed By: #### [id number] ####[facility] ([facility])[address] [place], [place] [address]BCD (RBC) [Entitic vol]92.6 zHYkurfs11.0-98.0 [facility] HospitalComment on above:Performed By: #### [id number] ####[facility] ([facility])[address] [place], [place] [address]Itpystiyb (Bld) [#/Vol]0.59 10*3/uLNormal0.10-1.00UnKeenan Private HospitalComment on above:Performed By: #### [id number] ####[facility] ([facility])[address] [facility] [place], [place] [address]Mylpbgjgl/100 WBC (Bld)8.5 %Normal5.0-12.0UnKeenan Private HospitalComment on above:Performed By: #### [id number] ####[facility] ([facility])[address] [place], [place] [address]Fjmiwjighje (Bld) [#/Vol] 4.63 10*3/uLNormal1.60-7.60UnKeenan Private HospitalComment on above: Performed By: #### [id number] ####[facility] ([facility])[address] [facility] [place], [place] [address]Zbakxrgjozq/100 WBC (Bld)67.1 %Uflouz53.0-72.0UnKeenan Private HospitalComment on above:Performed By: #### [id number] ####[facility] ([facility])[address] [place] [address]OKGS (PER 100 WBCS) BY AUTOMATED COUNT0.0 %Bydojm5BsjyxrkqifKeenan Private HospitalComment on above: Performed By: #### [id number] ####[facility] ([facility])[address] [place] [address]APXZPFJBJ (10*3/UL) IN BLOOD AUTOMATED ZXPRR144 10*3/uLNormal 150-400UnKeenan Private HospitalComment on above:Performed By: #### [id number] ####[facility] ([facility])[address] [place] [address]REL (Bld) [#/Vol]3.09 10*6/uLLow3.80-5.00UnKeenan Private HospitalComment on above:Performed By: #### [id number] ####[facility] ([facility])[address] [place] [address]SRS (Bld) [#/Vol]6.91 10*3/uLNormal4.00-10.60UnKeenan Private HospitalComment on above:Performed By: #### [id number] ####[facility] ([facility])[address] [place], [place] [address]LQYNEBAROok 02-10-2024 Magnesium [Mass/Vol]2.7 mg/dLNormal1.9-2.7[facility] Comment on above:Performed By: #### [id number] ####[facility] ([facility])[address] [place] [address]FEXC GLUCOSE METER UNSOLICITED RESULTSon 02-10-2024 Glucose [Mass/Vol]110 mg/lLBmbd37-567RyusvyxogrKeenan Private HospitalComment on above:Order Comment: Waived Testing in the ED is performed under the ED CLIA certificate #[id number].Result Comment: smopgyz0Lbqgdwvbo By: #### [id number] ####[facility] ([facility])[address] [place], [place] [address]Ceojezp [Mass/Vol]181 mg/oEWpbv83-541ZcewikqtixKeenan Private HospitalComment on above:Order Comment: Waived Testing in the ED is performed under the ED CLIA certificate #[id number].Result Comment: cmcgxzr9Cvczuqngt By: #### [id number] ####[facility] ([facility])[address] [place], [place] [address]Mzynucy [Mass/Vol]136 mg/vNZlbz67-319EvydoodutrKeenan Private HospitalComment on above:Order Comment: Waived Testing in the ED is performed under the ED CLIA certificate #[id number].Result Comment: prmmnsm3Rzloswafa By: #### [id number] ####[facility] ([facility])[address] [place], [place] [address]Ikmbght [Mass/Vol]92 mg/nLFdadaz03-363NnsjoogfcqKeenan Private HospitalComment on above:Order Comment: Waived Testing in the ED is performed under the ED CLIA certificate #[id number].Result Comment: jfruqt444Dpzzeduui By: #### [id number] ####[facility] ([facility])[address] [place], [place] [address]Waqvzee [Mass/Vol]99 mg/qAWkmxhr27-021VkztyfdvzyKeenan Private HospitalComment on above:Order Comment: Waived Testing in the ED is performed under the ED CLIA certificate #[id number].Result Comment: zcepkx36Pozpsmwfj By: #### [id number] ####[facility] ([facility])[address] [place], [place] [address]kr 02-09-2024 30NormalUniversity of Ut Health East [facility] Athens HospitalZheovr36LvqutfXxniqeuizn [facility]30NormalUniversity [facility] Medical CenterBASIC METABOLIC PANELon 26-19-8255Sqzly gap [Moles/Vol]10 mmol/LNormal7-20UnKeenan Private HospitalComment on above:Performed By: #### [id number] ####[facility] ([facility])[address] [place], [place] [address]Fyevfet [Mass/Vol]8.1 mg/dLLow8.6-10.3 [facility] HospitalComment on above:Performed By: #### [id number] ####[facility] ([facility])[address] [place], [place] [address]Jfprxwkr [Moles/Vol]104 mmol/WYlniba84-634IjniqeixjeKeenan Private HospitalComment on above:Performed By: #### [id number] ####[facility] ([facility])[address] [place] [address]UE4 [Moles/Vol]30 mmol/IAgxlzp29-30JqqlsqupyxKeenan Private HospitalComment on above:Performed By: #### [id number] ####[facility] ([facility])[address] [place] [address]Fwfvubewon [Mass/Vol]3.10 mg/dLHigh 0.60-1.20UnKeenan Private HospitalComment on above:Performed By: #### [id number] ####[facility] ([facility])[address] [place] [address]PYUTDFPRQA FILTRATION RATE ML/MIN/1.73 SQ M.UGBHGZOBF94.7 mL/min/1.73m*2Low>60.0UnKeenan Private HospitalComment on above:Result Comment: [facility]???s estimated glomerular filtration rate (eGFR) will [...] group of individuals. Performed By: #### [id number] ####[facility] ([facility])[address] [place] [address]Mbkevou [Mass/Vol]89 mg/xLUnaeaf75-947ZsrojjclpvKeenan Private HospitalComment on above:Performed By: #### [id number] ####[facility] ([facility])[address] [place] [address]Jcrxcdtle [Moles/Vol]4.2 mmol/LNormal 3.5-5.1UnKeenan Private HospitalComment on above:Performed By: #### [id number] ####[facility] ([facility])[address] [place] [address]Ciefqc [Moles/Vol]140 mmol/FHahugx527-880EbvuopttcvKeenan Private HospitalComment on above:Performed By: #### [id number] ####[facility] ([facility])[address] [place] [address]Oztp nitrogen [Mass/Vol]45 mg/dLHigh7-25UnKeenan Private HospitalComment on above:Performed By: #### [id number] ####[facility] ([facility])[address] [place] [address]WQIW NITROGEN/CREATININE (MASS RATIO) IN SER/PLAS14.5NormalUniversMarymount HospitalComment on above: Performed By: #### [id number] ####[facility] ([facility])[address] [place] [address]CDQ WITH AUTO DIFFERENTIALon 13-10-0656Pnyxvzfsw (Bld) [#/Vol]0.05 10*3/uLNormal0.00-0.20UnKeenan Private HospitalComment on above: Performed By: #### [id number] ####[facility] ([facility])[address] [place] [address]Iohrdnztn/100 WBC (Bld)0.7 %Normal0.0-1.0UnKeenan Private HospitalComment on above:Performed By: #### [id number] ####[facility] ([facility])[address] [place] [address]Rzhlhftgbkg (Bld) [#/Vol]0.24 10*3/uL Normal0.00-0.50UnKeenan Private HospitalComment on above:Performed By: #### [id number] ####[facility] ([facility])[address] [place] [address] Eosinophils/100 WBC (Bld)3.1 %Normal0.0-6.0UnKeenan Private Hospital Comment on above:Performed By: #### [id number] ####[facility] ([facility])[address] [place], [place] [address]Pexpoxgtras distribution width (RBC) [Ratio]17.1 % High11.5-15.0UnKeenan Private HospitalComment on above:Performed By: #### [id number] ####[facility] ([facility])[address] [place] [address] ERYTHROCYTE MEAN CORPUSCULAR HEMOGLOBIN CONCENTRATION (G/DL) BY AQKCDRVHV98.4 g/dLLow32.0-35.0UnKeenan Private HospitalComment on above:Performed By: #### [id number] ####[facility] ([facility])[address] [place], [place] [address]Gxidnvzfnt (Bld) [Volume fraction]27.2 %Low36.0-48.0UnKeenan Private HospitalComment on above:Performed By: #### [id number] ####[facility] ([facility])[address] [place], [place] [address]Svacmxtitf (Bld) [Mass/Vol]8.0 g/dLLow 12.0-15.0UnKeenan Private HospitalComment on above:Performed By: #### [id number] ####[facility] ([facility])[address] [place], [place] [address]Pghqipyl granulocytes (Bld) [#/Vol]0.28 10*3/uLHigh0.00-0.20UnKeenan Private HospitalComment on above:Performed By: #### [id number] ####[facility] ([facility])[address] [place], [place] [address]Onpipnsz granulocytes/100 WBC (Bld)3.7 %High0.0-1.0UnKeenan Private HospitalComment on above:Performed By: #### [id number] ####[facility] ([facility])[address] [place] [address] Lymphocytes (Bld) [#/Vol]0.92 10*3/uLLow1.20-4.00UnKeenan Private HospitalComment on above:Performed By: #### [id number] ####[facility] ([facility])[address] [place] [address]Swkgyhgdiyi/100 WBC (Bld)12.0 %Low 20.0-45.0UnKeenan Private HospitalComment on above:Performed By: #### [id number] ####[facility] ([facility])[address] [place] [address]NFT (RBC) [Entitic mass]27.4 mjNlxqtg71.0-33.0UnKeenan Private Hospital Comment on above:Performed By: #### [id number] ####[facility] ([facility])[address] [place] [address]DKV (RBC) [Entitic vol]93.2 rVIappes43.0-98.0 [facility] HospitalComment on above:Performed By: #### [id number] ####[facility] ([facility])[address] [place] [address]Eaeikakaj (Bld) [#/Vol]0.65 10*3/uLNormal0.10-1.00UnKeenan Private HospitalComment on above:Performed By: #### [id number] ####[facility] ([facility])[address] [place] [address]Djqrirtcb/100 WBC (Bld)8.5 %Normal5.0-12.0UnKeenan Private HospitalComment on above:Performed By: #### [id number] ####[facility] ([facility])[address] [place] [address]Cvoamzezmda (Bld) [#/Vol] 5.79 10*3/uLNormal1.60-7.60UnKeenan Private HospitalComment on above: Performed By: #### [id number] ####[facility] ([facility])[address] [place] [address]Rxavbeyckfd/100 WBC (Bld)75.7 %High40.0-72.0UnKeenan Private HospitalComment on above:Performed By: #### [id number] ####[facility] ([facility])[address] [place] [address]AASE (PER 100 WBCS) BY AUTOMATED COUNT0.0 %Qcwtar2RvpaorddtmKeenan Private HospitalComment on above: Performed By: #### [id number] ####[facility] ([facility])[address] [place] [address]TTWRHGAWB (10*3/UL) IN BLOOD AUTOMATED EOQOA031 10*3/uLNormal 150-400UnKeenan Private HospitalComment on above:Performed By: #### [id number] ####[facility] ([facility])[address] [place] [address]OTT (Bld) [#/Vol]2.92 10*6/uLLow3.80-5.00UnKeenan Private HospitalComment on above:Performed By: #### [id number] ####[facility] ([facility])[address] [place] [address]BBK (Bld) [#/Vol]7.65 10*3/uLNormal4.00-10.60UnKeenan Private HospitalComment on above:Performed By: #### [id number] ####[facility] ([facility])[address] [place] [address]CZYREVSoh 02-09-2024 CONSULTNormalUniversity [facility] VA Medical CenterMAGNESIUMon 63-19-1919Gdqkdniel [Mass/Vol]3.2 mg/dLHigh1.9-2.7UnKeenan Private HospitalComment on above:Performed By: #### [id number] ####[facility] ([facility])[address] [place] [address]FKQK GLUCOSE METER UNSOLICITED RESULTSon 50-75-4962Afiqkyu [Mass/Vol]173 mg/xMYtmg21-855UggkpidmejKeenan Private HospitalComment on above:Order Comment: Waived Testing in the ED is performed under the ED CLIA certificate #[id number].Result Comment: wtreeo59Oojddicrl By: #### [id number] ####[facility] ([facility])[address] [place] [address]Lpsptoa [Mass/Vol]201 mg/tBVrbq17-746CeusixseemKeenan Private HospitalComment on above:Order Comment: Waived Testing in the ED is performed under the ED CLIA certificate #[id number].Result Comment: bfloodPerformed By: #### [id number] ####[facility] ([facility])[address] [place], [place] [address]Hfedrtu [Mass/Vol]118 mg/fSMaaw02-991YeonlcrzqlKeenan Private HospitalComment on above:Order Comment: Waived Testing in the ED is performed under the ED CLIA certificate #[id number].Result Comment: [id number] By: #### [id number] ####[facility] ([facility])[address] [place], [place] [address]Ifcxhnl [Mass/Vol]129 mg/dXHcfn66-806OuegchbttxKeenan Private HospitalComment on above:Order Comment: Waived Testing in the ED is performed under the ED CLIA certificate #[id number].Result Comment: [id number] By: #### [id number] ####[facility] ([facility])[address] [place] [id number] 02-08-2024 30NormalUniversMarymount Hospital30NormalUniversity Dayton VA Medical CenterBASIC METABOLIC PANELon 03-61-3528Tpfqg gap [Moles/Vol]10 mmol/LNormal7-20 [facility] HospitalComment on above:Performed By: #### [id number] ####[facility] ([facility])[address] [place], [place] [address]Bggfdqi [Mass/Vol]8.3 mg/dLLow8.6-10.3UnKeenan Private HospitalComment on above:Performed By: #### [id number] ####[facility] ([facility])[address] [place], [place] [address]Ygeehove [Moles/Vol]101 mmol/UYyvewg69-351TrxthhrgwbKeenan Private HospitalComment on above:Performed By: #### [id number] ####[facility] ([facility])[address] [place] [address]TB5 [Moles/Vol]30 mmol/LNormal 21-31UnKeenan Private HospitalComment on above:Performed By: #### [id number] ####[facility] ([facility])[address] [place] [address]Qffnggepvu [Mass/Vol]3.65 mg/dLHigh0.60-1.20UnKeenan Private HospitalComment on above:Performed By: #### [id number] ####[facility] ([facility])[address] [place] [address]TVQXQYDDUG FILTRATION RATE ML/MIN/1.73 SQ M.VIGKHCWYJ08.0 mL/min/1.73m*2Low>60.0UnKeenan Private HospitalComment on above:Result Comment: [facility]???s estimated glomerular filtration rate (eGFR) will [...] anyone group of individuals.Performed By: #### [id number] ####[facility] ([facility])[address] [place] [address]Menkdbh [Mass/Vol]102 mg/uZFobr90-401GpiiraajrmKeenan Private HospitalComment on above:Performed By: #### [id number] ####[facility] ([facility])[address] [place] [address]Gnwahdcoo [Moles/Vol]4.2 mmol/L Normal3.5-5.1UnKeenan Private HospitalComment on above:Performed By: #### [id number] ####[facility] ([facility])[address] [place] [address] Sodium [Moles/Vol]137 mmol/NGkgjps538-529OtvukpunftKeenan Private Hospital Comment on above:Performed By: #### [id number] ####[facility] ([facility])[address] [place] [address]Ttho nitrogen [Mass/Vol]50 mg/dLHigh7-25UnKeenan Private HospitalComment on above:Performed By: #### [id number] ####[facility] ([facility])[address] [place] [address]FXXW NITROGEN/CREATININE (MASS RATIO) IN SER/PLAS13.7NormalUniversMarymount HospitalComment on above:Performed By: #### [id number] ####[facility] ([facility])[address] [place] [address]ZVH WITH AUTO DIFFERENTIALon 96-57-3166Jiehkzhxd (Bld) [#/Vol]0.03 10*3/uLNormal0.00-0.20UnKeenan Private HospitalComment on above:Performed By: #### [id number] ####[facility] ([facility])[address] [place], [place] [address]Cadbylvwq/100 WBC (Bld)0.4 %Normal0.0-1.0UnKeenan Private HospitalComment on above:Performed By: #### [id number] ####[facility] ([facility])[address] [place], [place] [address]Etybvhjwiuw (Bld) [#/Vol]0.20 10*3/uL Normal0.00-0.50UnKeenan Private HospitalComment on above:Performed By: #### [id number] ####[facility] ([facility])[address] [facility] [address] Eosinophils/100 WBC (Bld)2.9 %Normal0.0-6.0UnKeenan Private Hospital Comment on above:Performed By: #### [id number] ####[facility] ([facility])[address] [place], [place] [address]Urexwtzmydd distribution width (RBC) [Ratio]16.9 % High11.5-15.0UnKeenan Private HospitalComment on above:Performed By: #### [id number] ####[facility] ([facility])[address] [place] [address] ERYTHROCYTE MEAN CORPUSCULAR HEMOGLOBIN CONCENTRATION (G/DL) BY QADJMGVLO78.8 g/dLLow32.0-35.0UnKeenan Private HospitalComment on above:Performed By: #### [id number] ####[facility] ([facility])[address] [place], [place] [address]Ubwyofpfgp (Bld) [Volume fraction]25.3 %Low36.0-48.0UnKeenan Private HospitalComment on above:Performed By: #### [id number] ####[facility] ([facility])[address] [place], [place] [address]Wgounsbqou (Bld) [Mass/Vol]7.8 g/dLLow 12.0-15.0UnKeenan Private HospitalComment on above:Performed By: #### [id number] ####[facility] ([facility])[address] [place], [place] [address]Jvroqfns granulocytes (Bld) [#/Vol]0.23 10*3/uLHigh0.00-0.20UnKeenan Private HospitalComment on above:Performed By: #### [id number] ####[facility] ([facility])[address] [place], [place] [address]Ziyowvao granulocytes/100 WBC (Bld)3.3 %High0.0-1.0UnKeenan Private HospitalComment on above:Performed By: #### [id number] ####[facility] ([facility])[address] [place] [address] Lymphocytes (Bld) [#/Vol]0.80 10*3/uLLow1.20-4.00UnKeenan Private HospitalComment on above:Performed By: #### [id number] ####[facility] ([facility])[address] [place], [place] [address]Aeytzqqhcwx/100 WBC (Bld)11.5 %Low 20.0-45.0UnKeenan Private HospitalComment on above:Performed By: #### [id number] ####[facility] ([facility])[address] [place] [address]EFB (RBC) [Entitic mass]28.3 bxWkwlsz30.0-33.0UnKeenan Private Hospital Comment on above:Performed By: #### [id number] ####[facility] ([facility])[address] [place] [address]IES (RBC) [Entitic vol]91.7 jPMyibij38.0-98.0 [facility] HospitalComment on above:Performed By: #### [id number] ####[facility] ([facility])[address] [place] [address]Ypmspynow (Bld) [#/Vol]0.63 10*3/uLNormal0.10-1.00UnKeenan Private HospitalComment on above:Performed By: #### [id number] ####[facility] ([facility])[address] [place] [address]Bfhxtujhm/100 WBC (Bld)9.0 %Normal5.0-12.0UnKeenan Private HospitalComment on above:Performed By: #### [id number] ####[facility] ([facility])[address] [place], [place] [address]Mhuwdirsdsw (Bld) [#/Vol] 5.32 10*3/uLNormal1.60-7.60UnKeenan Private HospitalComment on above: Performed By: #### [id number] ####[facility] ([facility])[address] [place] [address]Credlpbgtgp/100 WBC (Bld)76.2 %High40.0-72.0UnKeenan Private HospitalComment on above:Performed By: #### [id number] ####[facility] ([facility])[address] [place] [address]BHNT (PER 100 WBCS) BY AUTOMATED COUNT0.0 %Dmpogd4ZqfuibvddvKeenan Private HospitalComment on above: Performed By: #### [id number] ####[facility] ([facility])[address] [place] [address]IQQEYEPYQ (10*3/UL) IN BLOOD AUTOMATED AWBHQ588 10*3/uLNormal 150-400UnKeenan Private HospitalComment on above:Performed By: #### [id number] ####[facility] ([facility])[address] [place] [address]NTH (Bld) [#/Vol]2.76 10*6/uLLow3.80-5.00UnKeenan Private HospitalComment on above:Performed By: #### [id number] ####[facility] ([facility])[address] [place] [address]RJB (Bld) [#/Vol]6.98 10*3/uLNormal4.00-10.60UnKeenan Private HospitalComment on above:Performed By: #### [id number] ####[facility] ([facility])[address] [place] [address]AKWFQWOJZzl 02-08-2024 Magnesium [Mass/Vol]3.6 mg/dLHigh1.9-2.7[facility] Comment on above:Performed By: #### [id number] ####[facility] ([facility])[address] [place] [address]VLKPBQGKkx 26-07-6934ZLIFWXYTAnfxyiBnjtbjzibt of [facility]edo Medical CenterPOCT GLUCOSE METER UNSOLICITED RESULTSon 86-12-2542Xtsczti [Mass/Vol]160 mg/qBNseb22-945EevyelvstsKeenan Private HospitalComment on above:Order Comment: Waived Testing in the ED is performed under the ED CLIA certificate #[id number].Result Comment: ujxqv0Inzazyeis By: #### [id number] ####[facility] ([facility])[address] [place] [address]Ehunmpg [Mass/Vol]128 mg/uALnrg64-045OnvvdegvysKeenan Private HospitalComment on above:Order Comment: Waived Testing in the ED is performed under the ED CLIA certificate #[id number].Result Comment: zxlo3Ewhjiqhjz By: #### [id number] ####[facility] ([facility])[address] [place] [address]aw 02-07-2024 30NormalUniversMarymount Hospital30NormalUniversMarymount HospitalB-TYPE NATRIURETIC PEPTIDEon 83-78-7547Ysznstjdvdk peptide B (Bld) [Mass/Vol]1210 pg/mLHigh0-100UnKeenan Private HospitalComment on above:Performed By: #### [id number] ####[facility] ([facility])[address] [place], [place] [address]ZTXYA METABOLIC PANELon 30-03-9[address]Snvog gap [Moles/Vol]13 mmol/LNormal7-20[facility] HospitalComment on above:Performed By: #### [id number] ####[facility] ([facility])[address] [place] [address] Calcium [Mass/Vol]8.2 mg/dLLow8.6-10.3[facility] HospitalComment on above:Performed By: #### [id number] ####[facility] ([facility])[address] [place], [place] [address]Sbbyxiyk [Moles/Vol]100 mmol/GOwcsuu13-852SjpiltkfejKeenan Private HospitalComment on above:Performed By: #### [id number] ####[facility] ([facility])[address] [place], [place] [address]ZA5 [Moles/Vol]29 mmol/LNormal 21-31UnKeenan Private HospitalComment on above:Performed By: #### [id number] ####[facility] ([facility])[address] [place], [place] [address]Badtashpqx [Mass/Vol]3.57 mg/dLHigh0.60-1.20UnKeenan Private HospitalComment on above:Performed By: #### [id number] ####[facility] ([facility])[address] [place] [address]NLBPFXRGQK FILTRATION RATE ML/MIN/1.73 SQ M.ANUZUHCNM74.4 mL/min/1.73m*2Low>60.0UnKeenan Private HospitalComment on above:Result Comment: [facility]???s estimated glomerular filtration rate (eGFR) will [...] anyone group of individuals.Performed By: #### [id number] ####[facility] ([facility])[address] [place], [place] [address]Nsizkra [Mass/Vol]107 mg/yMZbya17-089FsxcqzkynrKeenan Private HospitalComment on above:Performed By: #### [id number] ####[facility] ([facility])[address] [place], [place] [address]Gzckdsqxo [Moles/Vol]4.0 mmol/L Normal3.5-5.1UnKeenan Private HospitalComment on above:Performed By: #### [id number] ####[facility] ([facility])[address] [place] [address] Sodium [Moles/Vol]138 mmol/WEimrbm038-152AnbpfrnapwKeenan Private Hospital Comment on above:Performed By: #### [id number] ####[facility] ([facility])[address] [place], [place] [address]Vtmq nitrogen [Mass/Vol]48 mg/dLHigh7-25UnKeenan Private HospitalComment on above:Performed By: #### [id number] ####[facility] ([facility])[address] [place], [place] [address]HVMN NITROGEN/CREATININE (MASS RATIO) IN SER/PLAS13.4NormalUniversMarymount HospitalComment on above:Performed By: #### [id number] ####[facility] ([facility])[address] [place] [address]BRX WITH AUTO DIFFERENTIALon 21-25-5359Iisrsmabc (Bld) [#/Vol]0.02 10*3/uLNormal0.00-0.20UnKeenan Private HospitalComment on above:Performed By: #### [id number] ####[facility] ([facility])[address] [place], [place] [address]Jmimyfmad/100 WBC (Bld)0.3 %Normal0.0-1.0UnKeenan Private HospitalComment on above:Performed By: #### [id number] ####[facility] ([facility])[address] [place], [place] [address]Vpcgxaftfau (Bld) [#/Vol]0.01 10*3/uL Normal0.00-0.50UnKeenan Private HospitalComment on above:Performed By: #### [id number] ####[facility] ([facility])[address] [facility] [address] Eosinophils/100 WBC (Bld)0.1 %Normal0.0-6.0UnKeenan Private Hospital Comment on above:Performed By: #### [id number] ####[facility] ([facility])[address] [place], [place] [address]Uixawyatsme distribution width (RBC) [Ratio]16.9 % High11.5-15.0UnKeenan Private HospitalComment on above:Performed By: #### [id number] ####[facility] ([facility])[address] [place] [address] ERYTHROCYTE MEAN CORPUSCULAR HEMOGLOBIN CONCENTRATION (G/DL) BY JYRZVJJAN64.5 g/dLLow32.0-35.0UnKeenan Private HospitalComment on above:Performed By: #### [id number] ####[facility] ([facility])[address] [place], [place] [address]Vicdxldeli (Bld) [Volume fraction]24.6 %Low36.0-48.0UnKeenan Private HospitalComment on above:Performed By: #### [id number] ####[facility] ([facility])[address] [place], [place] [address]Evvzeziadh (Bld) [Mass/Vol]7.5 g/dLLow 12.0-15.0UnKeenan Private HospitalComment on above:Performed By: #### [id number] ####[facility] ([facility])[address] [place], [place] [address]Tvatunpk granulocytes (Bld) [#/Vol]0.09 10*3/uLNormal0.00-0.20UnKeenan Private HospitalComment on above:Performed By: #### [id number] ####[facility] ([facility])[address] [place], [place] [address]Seirjnxh granulocytes/100 WBC (Bld)1.2 %High0.0-1.0UnKeenan Private HospitalComment on above:Performed By: #### [id number] ####[facility] ([facility])[address] [facility] [place] [address] Lymphocytes (Bld) [#/Vol]0.66 10*3/uLLow1.20-4.00UnKeenan Private HospitalComment on above:Performed By: #### [id number] ####[facility] ([facility])[address] [place], [place] [address]Howhsslypjk/100 WBC (Bld)8.6 %Low 20.0-45.0UnKeenan Private HospitalComment on above:Performed By: #### [id number] ####[facility] ([facility])[address] [place], [place] [address]VSQ (RBC) [Entitic mass]27.7 vhQqzrsw73.0-33.0UnKeenan Private Hospital Comment on above:Performed By: #### [id number] ####[facility] ([facility])[address] [place], [place] [address]JKS (RBC) [Entitic vol]90.8 iUEbmefm54.0-98.0 [facility] HospitalComment on above:Performed By: #### [id number] ####[facility] ([facility])[address] [place] [address]Hjpmczgqr (Bld) [#/Vol]0.50 10*3/uLNormal0.10-1.00UnKeenan Private HospitalComment on above:Performed By: #### [id number] ####[facility] ([facility])[address] [place] [address]Jbrogumtx/100 WBC (Bld)6.5 %Normal5.0-12.0UnKeenan Private HospitalComment on above:Performed By: #### [id number] ####[facility] ([facility])[address] [place] [address]Cgatkzcjdtr (Bld) [#/Vol] 6.50 10*3/uLNormal1.60-7.60UnKeenan Private HospitalComment on above: Performed By: #### [id number] ####[facility] ([facility])[address] [place] [address]Grqotebwqvb/100 WBC (Bld)84.5 %High40.0-72.0UnKeenan Private HospitalComment on above:Performed By: #### [id number] ####[facility] ([facility])[address] [place] [address]HVDP (PER 100 WBCS) BY AUTOMATED COUNT0.0 %Cnwzie7PllhoxegvbKeenan Private HospitalComment on above: Performed By: #### [id number] ####[facility] ([facility])[address] [place] [address]PYTWNWDDU (10*3/UL) IN BLOOD AUTOMATED NZVYP963 10*3/uLNormal 150-400UnKeenan Private HospitalComment on above:Performed By: #### [id number] ####[facility] ([facility])[address] [place] [address]HNU (Bld) [#/Vol]2.71 10*6/uLLow3.80-5.00UnKeenan Private HospitalComment on above:Performed By: #### [id number] ####[facility] ([facility])[address] [place] [address]THL (Bld) [#/Vol]7.69 10*3/uLNormal4.00-10.60UnKeenan Private HospitalComment on above:Performed By: #### [id number] ####[facility] ([facility])[address] [place] [address]SJCXEYUGWxc 02-07-2024 Magnesium [Mass/Vol]3.7 mg/dLHigh1.9-2.7UnKe[facility]an Private Hospital Comment on above:Performed By: #### [id number] ####[facility] ([facility])[address] [place] [address]ETVT GLUCOSE METER UNSOLICITED RESULTSon 02-07-2024 Glucose [Mass/Vol]141 mg/nBUeab23-062UmrlbaluwjKeenan Private HospitalComment on above:Order Comment: Waived Testing in the ED is performed under the ED CLIA certificate #[id number].Result Comment: azmljjm6Pebmwaarf By: #### [id number] ####[facility] ([facility])[address] [place] [address]Kpeyycl [Mass/Vol]133 mg/rRYnpv75-335FdejmngizgKeenan Private HospitalComment on above:Order Comment: Waived Testing in the ED is performed under the ED CLIA certificate #[id number].Result Comment: ipsduxr9Ocjhkorph By: #### [id number] ####[facility] ([facility])[address] [place] [address]Deieckn [Mass/Vol]127 mg/rZEbcy81-214HsurtkymoaKeenan Private HospitalComment on above:Order Comment: Waived Testing in the ED is performed under the ED CLIA certificate #[id number].Result Comment: itmxowr5Vhfqgysef By: #### [id number] ####[facility] ([facility])[address] [place] [address]793ox 02-06-2024 30NormalUniversity [facility]30NormalUniversity [facility] Medical CenterBASIC METABOLIC PANELon 09-24-8[address]Dnmnd gap [Moles/Vol]17 mmol/LNormal7-20 [facility] HospitalComment on above:Performed By: #### [id number] ####[facility] ([facility])[address] [place] [address]Bcqxhbn [Mass/Vol]8.2 mg/dLLow8.6-10.3UnKeenan Private HospitalComment on above:Performed By: #### [id number] ####[facility] ([facility])[address] [place] [address]Irvbinrh [Moles/Vol]100 mmol/ORkzdbl16-433WwbkzqwyazKeenan Private HospitalComment on above:Performed By: #### [id number] ####[facility] ([facility])[address] [place] [address]NF7 [Moles/Vol]25 mmol/LNormal 21-31UnKeenan Private HospitalComment on above:Performed By: #### [id number] ####[facility] ([facility])[address] [place] [address]Vgipgdrnxs [Mass/Vol]3.14 mg/dLHigh0.60-1.20UnKeenan Private HospitalComment on above:Performed By: #### [id number] ####[facility] ([facility])[address] [place] [address]SUUGVFBFZL FILTRATION RATE ML/MIN/1.73 SQ M.UYVIUZRXD61.4 mL/min/1.73m*2Low>60.0UnKeenan Private HospitalComment on above:Result Comment: [facility]???s estimated glomerular filtration rate (eGFR) will [...] anyone group of individuals.Performed By: #### [id number] ####[facility] ([facility])[address] [place], [place] [address]Mriabow [Mass/Vol]97 mg/oOWdmsns59-369YzkpqfmqwnKeenan Private HospitalComment on above:Performed By: #### [id number] ####[facility] ([facility])[address] [facility] [place] [address]Duossecym [Moles/Vol]4.3 mmol/LNormal3.5-5.1UnKeenan Private HospitalComment on above:Performed By: #### [id number] ####[facility] ([facility])[address] [facility] [address] Sodium [Moles/Vol]138 mmol/YWzrdpv641-634TqwbtpyymiKeenan Private Hospital Comment on above:Performed By: #### [id number] ####[facility] ([facility])[address] [facility] [place] [address]Hpwi nitrogen [Mass/Vol]37 mg/dLHigh7-25UnKeenan Private HospitalComment on above:Performed By: #### [id number] ####[facility] ([facility])[address] [facility] [place], [place] [address]AXUX NITROGEN/CREATININE (MASS RATIO) IN SER/PLAS11.8NormalUniversMarymount HospitalComment on above:Performed By: #### [id number] ####[facility] ([facility])[address] [facility] [place] [address]GJL WITH AUTO DIFFERENTIALon 10-91-7194Acuxzcjwe (Bld) [#/Vol]0.01 10*3/uLNormal0.00-0.20UnKeenan Private HospitalComment on above:Performed By: #### [id number] ####[facility] ([facility])[address] [facility] [place] [address]Rbcjlekmf/100 WBC (Bld)0.1 %Normal0.0-1.0UnKeenan Private HospitalComment on above:Performed By: #### [id number] ####[facility] ([facility])[address] [place], [place] [address]Tfbpifnqxan (Bld) [#/Vol]0.00 10*3/uL Normal0.00-0.50UnKeenan Private HospitalComment on above:Performed By: #### [id number] ####[facility] ([facility])[address] [place] [address] Eosinophils/100 WBC (Bld)0.0 %Normal0.0-6.0UnKeenan Private Hospital Comment on above:Performed By: #### [id number] ####[facility] ([facility])[address] [place], [place] [address]Nvxccfkaqmg distribution width (RBC) [Ratio]16.2 % High11.5-15.0UnKeenan Private HospitalComment on above:Performed By: #### [id number] ####[facility] ([facility])[address] [place] [address] ERYTHROCYTE MEAN CORPUSCULAR HEMOGLOBIN CONCENTRATION (G/DL) BY UKNHAPNKA10.7 g/dLLow32.0-35.0UnKeenan Private HospitalComment on above:Performed By: #### [id number] ####[facility] ([facility])[address] [place], [place] [address]Ahboklzins (Bld) [Volume fraction]25.7 %Low36.0-48.0UnKeenan Private HospitalComment on above:Performed By: #### [id number] ####[facility] ([facility])[address] [place], [place] [address]Lgquosnhip (Bld) [Mass/Vol]7.9 g/dLLow 12.0-15.0UnKeenan Private HospitalComment on above:Performed By: #### [id number] ####[facility] ([facility])[address] [place], [place] [address]Jaszwtvz granulocytes (Bld) [#/Vol]0.07 10*3/uLNormal0.00-0.20UnKeenan Private HospitalComment on above:Performed By: #### [id number] ####[facility] ([facility])[address] [place] [address]Nwmnrfzp granulocytes/100 WBC (Bld)0.9 %Normal0.0-1.0UnKeenan Private HospitalComment on above:Performed By: #### [id number] ####[facility] ([facility])[address] [facility] [address] Lymphocytes (Bld) [#/Vol]0.46 10*3/uLLow1.20-4.00UnKeenan Private HospitalComment on above:Performed By: #### [id number] ####[facility] ([facility])[address] [place], [place] [address]Njeoxxaoszq/100 WBC (Bld)6.2 %Low 20.0-45.0UnKeenan Private HospitalComment on above:Performed By: #### [id number] ####[facility] ([facility])[address] [facility] [place], [place] [address]RQS (RBC) [Entitic mass]27.9 uvPbbcpi16.0-33.0UnKeenan Private Hospital Comment on above:Performed By: #### [id number] ####[facility] ([facility])[address] [facility] [place], [place] [address]VGD (RBC) [Entitic vol]90.8 tUFfrcnw95.0-98.0 [facility] HospitalComment on above:Performed By: #### [id number] ####[facility] ([facility])[address] [facility] [place] [place] [address]Ocxveuhse (Bld) [#/Vol]0.19 10*3/uLNormal0.10-1.00UnKeenan Private HospitalComment on above:Performed By: #### [id number] ####[facility] ([facility])[address] [place], [place] [address]Cddivswhw/100 WBC (Bld)2.6 %Low5.0-12.0UnKeenan Private HospitalComment on above:Performed By: #### [id number] ####[facility] ([facility])[address] [place] [address]Erqpylialxn (Bld) [#/Vol]6.77 10*3/uL Normal1.60-7.60UnKeenan Private HospitalComment on above:Performed By: #### [id number] ####[facility] ([facility])[address] [place] [address] Neutrophils/100 WBC (Bld)91.1 %High40.0-72.0[facility] Comment on above:Performed By: #### [id number] ####[facility] ([facility])[address] [place] [address]AOIV (PER 100 WBCS) BY AUTOMATED COUNT0.0 %Normal0 [facility] HospitalComment on above:Performed By: #### [id number] ####[facility] ([facility])[address] [place] [address]HXQOQMDYT (10*3/UL) IN BLOOD AUTOMATED [id number] 10*3/mHJtqvnn805-591TkgkmlzmzlKeenan Private HospitalComment on above:Performed By: #### [id number] ####[facility] ([facility])[address] [place] [address]DMH (Bld) [#/Vol]2.83 10*6/uLLow 3.80-5.00UnKeenan Private HospitalComment on above:Performed By: #### [id number] ####[facility] ([facility])[address] [place], [place] [address]MPZ (Bld) [#/Vol]7.43 10*3/uLNormal4.00-10.60[facility] Comment on above:Performed By: #### [id number] ####[facility] ([facility])[address] [place], [place] [address]XVZLACSma 65-12-0381KYGKUPVXeixclYnppcguiib of [facility] Medical CenterCREATININE, URINE, RANDOMon 45-60-5220Mbuctsjbhu (U) [Mass/Vol]82.0 mg/yROpgaaw71-706PzmatlbiokKeenan Private HospitalComment on above:Performed By: #### [id number] ####[facility] ([facility])[address] [place], [place] [address]DMFCWF ACID, PLASMAon 22-22-6123OFCJOFW (MMOL/L) IN SER/PLAS 0.4 mmol/LLow0.5-2.2UnKeenan Private HospitalComment on above: Performed By: #### [id number] ####[facility] ([facility])[address] [place], [place] [address]BYFFHPTGZuo 69-02-4001Oqqhqnlmu [Mass/Vol]3.6 mg/dLHigh1.9-2.7 [facility] HospitalComment on above:Performed By: #### [id number] ####[facility] ([facility])[address] [place], [place] [address]DGVBPQQInd 25-27-5304ZRWPEFINUgzcarSklczzgrrd of [place] Medical CenterNURSNOTBradley Hospitalrmal [facility] HospitalPOCT GLUCOSE METER UNSOLICITED RESULTSon 00-64-6600Qflymlx [Mass/Vol]150 mg/cHYmpv35-874JhlwuwutxhKeenan Private HospitalComment on above:Order Comment: Waived Testing in the ED is performed under the ED CLIA certificate #[id number].Result Comment: [id number] By: #### [id number] ####[facility] ([facility])[address] [place] [address] Glucose [Mass/Vol]195 mg/wFKkwv69-092KqmtwhsyjhKeenan Private HospitalComment on above:Order Comment: Waived Testing in the ED is performed under the ED CLIA certificate #[id number].Result Comment: wgwpafq9Jjyaaknce By: #### [id number] ####[facility] ([facility])[address] [place], [place] [address]Gauhseh [Mass/Vol]123 mg/kLQnmr16-801XeekqchytiKeenan Private HospitalComment on above:Order Comment: Waived Testing in the ED is performed under the ED CLIA certificate #[id number].Result Comment: eojupej9Fcuowqulz By: #### [id number] ####[facility] ([facility])[address] [place], [place] [address]Ajwvmqw [Mass/Vol]130 mg/sVPlhy90-744AqvxpbllfsKeenan Private HospitalComment on above:Order Comment: Waived Testing in the ED is performed under the ED CLIA certificate #[id number].Result Comment: whtn2Dhmfquilv By: #### [id number] ####[facility] ([facility])[address] [place], [place] [address]Jnnpokl [Mass/Vol]122 mg/hMXgfr48-546XuvbhqgnneKeenan Private HospitalComment on above:Order Comment: Waived Testing in the ED is performed under the ED CLIA certificate #[id number].Result Comment: [id number] By: #### [id number] ####[facility] ([facility])[address] [place], [place] [address]RWEBVX, URINE, RANDOMon 07-88-8401Ithzqv (U) [Moles/Vol]45 mmol/LNormalUnKeenan Private HospitalComment on above:Performed By: #### [id number] ####[facility] ([facility])[address] [place], [place] [address]KCAOAQDUGV WITH MICROSCOPICon 10-57-3302VUNXGCKLU, TOTAL PRESENCE IN URINENegativeNormalNegativeUnKeenan Private HospitalComment on above:Performed By: #### [id number] ####[facility] ([facility])[address] [place], [place] [address]Vrxixqq (U)CloudyAbnormal ClearUnKeenan Private HospitalComment on above:Performed By: #### [id number] ####[facility] ([facility])[address] [place], [place] [address]Wrgbz (U)YellowNormalColorless, Yellow, Light-YellowUnKeenan Private HospitalComment on above:Performed By: #### [id number] ####[facility] ([facility])[address] [place], [place] [address]DFVJBQK (MG/DL) IN URINENormalNormal NormalUnKeenan Private HospitalComment on above:Performed By: #### [id number] ####[facility] ([facility])[address] [place] [address] HEMOGLOBIN PRESENCE IN URINEModerateAbnormalNegativeUnKeenan Private HospitalComment on above:Performed By: #### [id number] ####[facility] ([facility])[address] [place], [place] [address]Hkknwqi Ql (U)TraceAbnormalNegative [facility] HospitalComment on above:Performed By: #### [id number] ####[facility] ([facility])[address] [place], [place] [address]KZUAWAQVX ESTERASE PRESENCE IN URINE BY TEST STRIPNegativeNormalNegativeUnKeenan Private HospitalComment on above:Performed By: #### [id number] ####[facility] ([facility])[address] [place], [place] [address]RUVBZ (#/LPF) IN URINE SEDIMENTOccasionalNormalNone Seen, Occasional, FewUnKeenan Private HospitalComment on above:Performed By: #### [id number] ####[facility] ([facility])[address] [place], [place] [address]WVHXPFO PRESENCE IN URINENegative NormalNegativeUnKeenan Private HospitalComment on above:Performed By: #### [id number] ####[facility] ([facility])[address] [place], [place] [address]xT (U)5.5 [pH]Normal5.0-8.0UnKeenan Private HospitalComment on above: Performed By: #### [id number] ####[facility] ([facility])[address] [place], [place] [address]Fywkqpe (U) [Mass/Vol]30 mg/dLAbnormalNegativeUnKeenan Private HospitalComment on above:Performed By: #### [id number] ####[facility] ([facility])[address] [place] [address]NJZ (#/HPF) IN URINE SEDIMENT>20AbnormalNone Seen, 0-2UnKeenan Private HospitalComment on above:Performed By: #### [id number] ####[facility] ([facility])[address] [place] [address]Icnpvglp gravity (U) [Rel density]>1.381Lkzg5.010-1.030 [facility]wood HospitalComment on above:Performed By: #### [id number] ####[facility] ([facility])[address] [place], [place] [address]IQCLYVFQ EPITHELIAL CELLS (#/LPF) IN URINE SEDIMENTOccasionalNormalNone Seen, Occasional, FewUnKeenan Private HospitalComment on above:Performed By: #### [id number] ####[facility] ([facility])[address] [place] [address] UROBILINOGEN (MG/DL) IN URINENormalNormalNormalUniCommunity Memorial HospitalComment on above:Performed By: #### [id number] ####[facility] ([facility])[address] [place] [address]WYN (LEUKOCYTE) (#/HPF) IN URINE SEDIMENT6-10AbnormalNone Seen, 0-2UnKeenan Private HospitalComment on above:Performed By: #### [id number] ####[facility] ([facility])[address] [place], [place] [address]rj 43-96-069862GsrenmBzncxtedub of [place] [facility] Djvemr20 NormalUnKeenan Private HospitalANESon 09-20-9763AAXQQadrxaGhmgpenqco of [place] Medical CenterBASIC METABOLIC PANELon 77-90-2264Bhjzl gap [Moles/Vol] 13 mmol/LNormal7-20UnKeenan Private HospitalComment on above:Performed By: #### [id number] ####[facility] ([facility])[address] [place] [address] Calcium [Mass/Vol]8.1 mg/dLLow8.6-10.3UnKeenan Private HospitalComment on above:Performed By: #### [id number] ####[facility] ([facility])[address] [place], [place] [address]Wzkpgndb [Moles/Vol]95 mmol/JAoo74-295MhghbnyfuoKeenan Private HospitalComment on above:Performed By: #### [id number] ####[facility] ([facility])[address] [place], [place] [address]QR6 [Moles/Vol]32 mmol/XMude05-20 [facility] HospitalComment on above:Performed By: #### [id number] ####[facility] ([facility])[address] [place], [place] [address]Omvqldkqvh [Mass/Vol]2.79 mg/dLHigh0.60-1.20UnKeenan Private HospitalComment on above:Performed By: #### [id number] ####[facility] ([facility])[address] [place], [place] [address]WPAJGXAHDD FILTRATION RATE ML/MIN/1.73 SQ M.KDUANOFCG67.6 mL/min/1.73m*2Low>60.0UnKeenan Private HospitalComment on above:Result Comment: [facility]???s estimated glomerular filtration rate (eGFR) will [...] anyone group of individuals.Performed By: #### [id number] ####[facility] ([facility])[address] [place], [place] [address]Mfvofou [Mass/Vol]95 mg/aMLtdnwx02-704TgehrkvketKeenan Private HospitalComment on above:Performed By: #### [id number] ####[facility] ([facility])[address] [place], [place] [address]Bdfmitsie [Moles/Vol]3.6 mmol/LNormal3.5-5.1UnKeenan Private HospitalComment on above:Performed By: #### [id number] ####[facility] ([facility])[address] [place] [address] Sodium [Moles/Vol]136 mmol/KBycnff733-686LqdqhljtdoKeenan Private Hospital Comment on above:Performed By: #### [id number] ####[facility] ([facility])[address] [place], [place] [address]Vewd nitrogen [Mass/Vol]29 mg/dLHigh7-25UnKeenan Private HospitalComment on above:Performed By: #### [id number] ####[facility] ([facility])[address] [place], [place] [address]FGMK NITROGEN/CREATININE (MASS RATIO) IN SER/PLAS10.4NormalUniversMarymount HospitalComment on above:Performed By: #### [id number] ####[facility] ([facility])[address] [place], [place] [address]IFO WITH AUTO DIFFERENTIALon 27-53-9622Gsluqinpq (Bld) [#/Vol]0.02 10*3/uLNormal0.00-0.20UnKeenan Private HospitalComment on above:Performed By: #### [id number] ####[facility] ([facility])[address] [place], [place] [address]Hqecgwbct/100 WBC (Bld)0.3 %Normal0.0-1.0UnKeenan Private HospitalComment on above:Performed By: #### [id number] ####[facility] ([facility])[address] [place], [place] [address]Haymmmmmjct (Bld) [#/Vol]0.30 10*3/uL Normal0.00-0.50UnKeenan Private HospitalComment on above:Performed By: #### [id number] ####[facility] ([facility])[address] [place] [address] Eosinophils/100 WBC (Bld)4.0 %Normal0.0-6.0UnKeenan Private Hospital Comment on above:Performed By: #### [id number] ####[facility] ([facility])[address] [place], [place] [address]Tbvctcyorwf distribution width (RBC) [Ratio]16.3 % High11.5-15.0UnKeenan Private HospitalComment on above:Performed By: #### [id number] ####[facility] ([facility])[address] [place] [address] ERYTHROCYTE MEAN CORPUSCULAR HEMOGLOBIN CONCENTRATION (G/DL) BY UECKPQKCF90.2 g/dLLow32.0-35.0UnKeenan Private HospitalComment on above:Performed By: #### [id number] ####[facility] ([facility])[address] [place], [place] [address]Ekjwjlnvof (Bld) [Volume fraction]24.8 %Low36.0-48.0UnKeenan Private HospitalComment on above:Performed By: #### [id number] ####[facility] ([facility])[address] [place], [place] [address]Cpwcvzlgqb (Bld) [Mass/Vol]7.5 g/dLLow 12.0-15.0UnKeenan Private HospitalComment on above:Performed By: #### [id number] ####[facility] ([facility])[address] [place], [place] [address]Mnmgjorv granulocytes (Bld) [#/Vol]0.04 10*3/uLNormal0.00-0.20UnKeenan Private HospitalComment on above:Performed By: #### [id number] ####[facility] ([facility])[address] [place], [place] [address]Plobmcqa granulocytes/100 WBC (Bld)0.5 %Normal0.0-1.0UnKeenan Private HospitalComment on above:Performed By: #### [id number] ####[facility] ([facility])[address] [place] [address] Lymphocytes (Bld) [#/Vol]0.58 10*3/uLLow1.20-4.00UnKeenan Private HospitalComment on above:Performed By: #### [id number] ####[facility] ([facility])[address] [place], [place] [address]Uawhgcrkysm/100 WBC (Bld)7.7 %Low 20.0-45.0UnKeenan Private HospitalComment on above:Performed By: #### [id number] ####[facility] ([facility])[address] [place], [place] [address]HAM (RBC) [Entitic mass]27.4 cbDyjjfd20.0-33.0UnKeenan Private Hospital Comment on above:Performed By: #### [id number] ####[facility] ([facility])[address] [place], [place] [address]HRC (RBC) [Entitic vol]90.5 jKAymual89.0-98.0 [facility] HospitalComment on above:Performed By: #### [id number] ####[facility] ([facility])[address] [place], [place] [address]Uukurtysb (Bld) [#/Vol]0.52 10*3/uLNormal0.10-1.00UnKeenan Private HospitalComment on above:Performed By: #### [id number] ####[facility] ([facility])[address] [place], [place] [address]Mujurzyyw/100 WBC (Bld)6.9 %Normal5.0-12.0UnKeenan Private HospitalComment on above:Performed By: #### [id number] ####[facility] ([facility])[address], [place] [address]Mikyrtuycox (Bld) [#/Vol] 6.03 10*3/uLNormal1.60-7.60UnKeenan Private HospitalComment on above: Performed By: #### [id number] ####[facility] ([facility])[address] [place] [address]Vpoxrtmgsee/100 WBC (Bld)80.6 %High40.0-72.0UnKeenan Private HospitalComment on above:Performed By: #### [id number] ####[facility] ([facility])[address] [place] [address]MXMB (PER 100 WBCS) BY AUTOMATED COUNT0.0 %Aimqlw7RotefeheudKeenan Private HospitalComment on above: Performed By: #### [id number] ####[facility] ([facility])[address] [place] [address]URWTXMBWJ (10*3/UL) IN BLOOD AUTOMATED VCLEN879 10*3/uLNormal 150-400UnKeenan Private HospitalComment on above:Performed By: #### [id number] ####[facility] ([facility])[address] [place] [address]SSN (Bld) [#/Vol]2.74 10*6/uLLow3.80-5.00UnKeenan Private HospitalComment on above:Performed By: #### [id number] ####[facility] ([facility])[address] [place] [address]ORG (Bld) [#/Vol]7.49 10*3/uLNormal4.00-10.60UnKeenan Private HospitalComment on above:Performed By: #### [id number] ####[facility] ([facility])[address] [place] [address]CGQPBJGyc 02-05-2024 CONSULTNormalUniversMarymount HospitalHPon 72-86-2827NGT&P reviewed. The patient was examined and there are no changes to the H&P.NormalUnKeenan Private HospitalMAGNESIUMon 06-14-1950Mweaschro [Mass/Vol]3.6 mg/dLHigh 1.9-2.7UnKeenan Private HospitalComment on above:Performed By: #### [id number] ####[facility] ([facility])[address] [place], [place] [address]GC BRAIN WO CONTRASTon 46-56-0419FO BRAIN WO CONTRASTInvalid Interpretation Code [facility] HospitalNURSNOTEon 58-62-2241WKUOCTDQNfyjyvSbcxuvecdm of [place] Medical CenterNURSNOTEReport called to Kayleigh MELGAR all questions answered.NormalUnKeenan Private HospitalOPNOTEon 92-85-8851OLHPXO NormalUnKeenan Private HospitalPOCT GLUCOSE METER UNSOLICITED RESULTS on 02-64-3241Gnxedfx [Mass/Vol]117 mg/tPGxil99-703ZrdkonbxdiKeenan Private HospitalComment on above:Order Comment: Waived Testing in the ED is performed under the ED CLIA certificate #[id number].Result Comment: yrsx6Jckyjztpe By: #### [id number] ####[facility] ([facility])[address] [place] [address] Glucose [Mass/Vol]102 mg/pJFkwkwe40-872IpxqgpnpsbKeenan Private Hospital Comment on above:Order Comment: Waived Testing in the ED is performed under the ED CLIA certificate #[id number].Result Comment: leulerPerformed By: #### [id number] ####[facility] ([facility])[address] [place], [place] [address]Ulswpso [Mass/Vol]100 mg/jJVbklee01-581OmmbnmiuqwKeenan Private HospitalComment on above:Order Comment: Waived Testing in the ED is performed under the ED CLIA certificate #[id number].Result Comment: svandygPerformed By: #### [id number] ####[facility] ([facility])[address] [place], [place] [address]Igmooca [Mass/Vol]114 mg/cAKkrx27-125SqzriciaehKeenan Private HospitalComment on above:Order Comment: Waived Testing in the ED is performed under the ED CLIA certificate #[id number].Result Comment: agoettiPerformed By: #### [id number] ####[facility] ([facility])[address] [place], [place] [address]ZBAPum 63-49-8451IDASRdicteGelyvniowm of [place] Medical CenterANTI-XA (HEPARIN LEVEL)on 45-46-6935DEXTTSI UNFRACTIONATED (U/ML) IN PPP BY CHROMOGENIC METHOD>1.00 Critically high0.3-0.7UnKeenan Private HospitalComment on above:Result Comment: Rivaroxaban and Apixaban will interfere with the anti Xa assay used to monitor UFH and LMWH.Performed By: #### [id number] ####[facility] ([facility])[address] [place] [address]DZWBsw 07-31-2215PPIIKEMUZ PARTIAL THROMBOPLASTIN TIME IN PPP BY COAGULATION ASSAY45.7 RzpefiuDhoz35.0-35.0 [facility] HospitalComment on above:Order Comment: Check aPTT every 6 hours while on heparin infusion, or per protocol.Result Comment: Clinical significance of the APTT is questionable in the presence of heparin. Performed By: #### [id number] ####[facility] ([facility])[address] [place], [place] [address]LPFSOUYGK PARTIAL THROMBOPLASTIN TIME IN PPP BY COAGULATION ASSAY40.3 BeztysxJurg24.0-35.0UnKeenan Private HospitalComment on above:Order Comment: Check aPTT every 6 hours while on heparin infusion, or per protocol.Result Comment: Clinical significance of the APTT is questionable in the presence of heparin.Performed By: #### [id number] ####[facility] ([facility])[address] [place], [place] [address]EJWKC METABOLIC PANELon 02-04-2024 Anion gap [Moles/Vol]15 mmol/LNormal7-20UnKeenan Private Hospital Comment on above:Performed By: #### [id number] ####[facility] ([facility])[address] [place], [place] [address]Fybipho [Mass/Vol]8.0 mg/dLLow8.6-10.3UnKeenan Private HospitalComment on above:Performed By: #### [id number] ####[facility] ([facility])[address] [place] [address]Avcsdsfe [Moles/Vol]96 mmol/BNxj05-695OtelnkscloKeenan Private HospitalComment on above:Performed By: #### [id number] ####[facility] ([facility])[address] [place] [address]EH7 [Moles/Vol]29 mmol/FLqfvhy35-00NhvcbanwajKeenan Private HospitalComment on above:Performed By: #### [id number] ####[facility] ([facility])[address] [place] [address]Whmctztxzw [Mass/Vol]1.87 mg/dLHigh0.60-1.20UnKeenan Private HospitalComment on above:Performed By: #### [id number] ####[facility] ([facility])[address] [place] [address]GOXSUAKLYN FILTRATION RATE ML/MIN/1.73 SQ M.VDFIBIJNS95.9 mL/min/1.73m*2Low>60.0UnKeenan Private HospitalComment on above:Result Comment: [facility]???s estimated glomerular filtration rate (eGFR) will [...] anyone group of individuals.Performed By: #### [id number] ####[facility] ([facility])[address] [place] [address]Rumrbeh [Mass/Vol]95 mg/hMLydgzb78-147LzuzuznoppKeenan Private HospitalComment on above:Performed By: #### [id number] ####[facility] ([facility])[address] [place] [address]Mhluadvmm [Moles/Vol]4.0 mmol/LNormal3.5-5.1UnKeenan Private HospitalComment on above:Performed By: #### [id number] ####[facility] ([facility])[address] [place] [address]Temqjn [Moles/Vol]136 mmol/L Teichw196-401IanprubfghKeenan Private HospitalComment on above:Performed By: #### [id number] ####[facility] ([facility])[address] [place] [address]Juqm nitrogen [Mass/Vol]24 mg/dLNormal7-25UnKeenan Private HospitalComment on above:Performed By: #### [id number] ####[facility] ([facility])[address] [place], [place] [address]EGQO NITROGEN/CREATININE (MASS RATIO) IN SER/PLAS12.8Normal [facility] HospitalComment on above:Performed By: #### [id number] ####[facility] ([facility])[address] [place], [place] [address]TUO WITH AUTO DIFFERENTIALon 70-61-7479Rvqoduabk (Bld) [#/Vol]0.02 10*3/uLNormal0.00-0.20 [facility] HospitalComment on above:Performed By: #### [id number] ####[facility] ([facility])[address] [place], [place] [address]Qcpzpogqx/100 WBC (Bld)0.2 %Normal0.0-1.0UnKeenan Private HospitalComment on above: Performed By: #### [id number] ####[facility] ([facility])[address] [place], [place] [address]Gjankedaqmw (Bld) [#/Vol]0.18 10*3/uLNormal0.00-0.50 [facility] HospitalComment on above:Performed By: #### [id number] ####[facility] ([facility])[address] [place], [place] [address]Gbpeaxtxztn/100 WBC (Bld)2.2 %Normal0.0-6.0UnKeenan Private HospitalComment on above: Performed By: #### [id number] ####[facility] ([facility])[address] [place], [place] [address]Npvyfreyjlh distribution width (RBC) [Ratio]16.1 %High 11.5-15.0UnKeenan Private HospitalComment on above:Performed By: #### [id number] ####[facility] ([facility])[address] [place] [address] ERYTHROCYTE MEAN CORPUSCULAR HEMOGLOBIN CONCENTRATION (G/DL) BY TJZKHNYDM65.4 g/dLLow32.0-35.0UnKeenan Private HospitalComment on above:Performed By: #### [id number] ####[facility] ([facility])[address] [place], [place] [address]Pswfzhkkzf (Bld) [Volume fraction]28.0 %Low36.0-48.0UnKeenan Private HospitalComment on above:Performed By: #### [id number] ####[facility] ([facility])[address] [place], [place] [address]Oomsaaszfw (Bld) [Mass/Vol]8.8 g/dLLow 12.0-15.0UnKeenan Private HospitalComment on above:Performed By: #### [id number] ####[facility] ([facility])[address] [place], [place] [address]Oslmofyr granulocytes (Bld) [#/Vol]0.04 10*3/uLNormal0.00-0.20UnKeenan Private HospitalComment on above:Performed By: #### [id number] ####[facility] ([facility])[address] [place], [place] [address]Xqwftwjq granulocytes/100 WBC (Bld)0.5 %Normal0.0-1.0UnKeenan Private HospitalComment on above:Performed By: #### [id number] ####[facility] ([facility])[address] [place] [address] Lymphocytes (Bld) [#/Vol]0.52 10*3/uLLow1.20-4.00UnKeenan Private HospitalComment on above:Performed By: #### [id number] ####[facility] ([facility])[address] [place], [place] [address]Ilpusshsdmm/100 WBC (Bld)6.5 %Low 20.0-45.0UnKeenan Private HospitalComment on above:Performed By: #### [id number] ####[facility] ([facility])[address] [place], [place] [address]GOF (RBC) [Entitic mass]28.3 wgNwjmfq56.0-33.0UnKeenan Private Hospital Comment on above:Performed By: #### [id number] ####[facility] ([facility])[address] [place], [place] [address]IZO (RBC) [Entitic vol]90.0 yUHkkbii48.0-98.0 [facility] HospitalComment on above:Performed By: #### [id number] ####[facility] ([facility])[address] [place], [place] [address]Smpfipfbq (Bld) [#/Vol]0.65 10*3/uLNormal0.10-1.00UnKeenan Private HospitalComment on above:Performed By: #### [id number] ####[facility] ([facility])[address] [place], [place] [address]Vfaxpexvf/100 WBC (Bld)8.1 %Normal5.0-12.0UnKeenan Private HospitalComment on above:Performed By: #### [id number] ####[facility] ([facility])[address] [place], [place] [address]Jlgddnylxfg (Bld) [#/Vol] 6.61 10*3/uLNormal1.60-7.60UnKeenan Private HospitalComment on above: Performed By: #### [id number] ####[facility] ([facility])[address] [place], [place] [address]Cyyfphbktkt/100 WBC (Bld)82.5 %High40.0-72.0UnKeenan Private HospitalComment on above:Performed By: #### [id number] ####[facility] ([facility])[address] [place] [address]XSYM (PER 100 WBCS) BY AUTOMATED COUNT0.0 %Cnlbzk7MidokagyhoKeenan Private HospitalComment on above: Performed By: #### [id number] ####[facility] ([facility])[address] [place] [address]XIGZLRBJM (10*3/UL) IN BLOOD AUTOMATED [id number] 10*3/uLNormal 150-400UnKeenan Private HospitalComment on above:Performed By: #### [id number] ####[facility] ([facility])[address] [place] [address]NPE (Bld) [#/Vol]3.11 10*6/uLLow3.80-5.00[facility] HospitalComment on above:Performed By: #### [id number] ####[facility] LAB ([facility])[address] [place] [address]HOY (Bld) [#/Vol]8.02 10*3/uLNormal4.00-10.60UnKeenan Private HospitalComment on above:Performed By: #### [id number] ####[facility] LAB ([facility])[address] [place] [address]LL BRAIN PERFUSIONon 94-23-7946XA BRAIN PERFUSIONInvalid Interpretation CodeSuburban Community Hospital & Brentwood HospitalCT HEAD WO IV CONTRASTon 67-52-5746OD HEAD WO IV CONTRASTNormal [facility] Brent[facility] HospitalCTA HEAD W IV CONTRASTon 97-56-6718FVZ HEAD W IV CONTRASTNormalUniversMarymount HospitalCTA NECK W IV CONTRASTon 33-23-7800EGL NECK W IV CONTRASTInvalid Interpretation CodeUnKeenan Private HospitalMAGNESIUMon 51-97-0710Tvyampstx [Mass/Vol]3.1 mg/dLHigh1.9-2.7 [facility] Brentwood HospitalComment on above:Performed By: #### [id number] ####[facility] LAB (BEAKER)[address] [place] [address]MLKN GLUCOSE METER UNSOLICITED RESULTSon 48-47-0782Nlrndny [Mass/Vol]172 mg/mVPyml34-288 [facility] Brentwood HospitalComment on above:Order Comment: Waived Testing in the ED is performed under the ED CLIA certificate #[id number].Result Comment: julgxum3Ducqmibkg By: #### [id number] ####[facility] LAB (BEAKER)[address] [place] [address]Hapgmmb [Mass/Vol]113 mg/uMCjzw01-456KzuqhqzhohKeenan Private HospitalComment on above:Order Comment: Waived Testing in the ED is performed under the ED CLIA certificate #[id number].Result Comment: [email or web address] Performed By: #### [id number] ####[facility] LAB ([facility])[address] [place] [address]ABLLQZ BLOOD GAS WITH IONIZED CALCIUMon 90-37-7042Ulsg excess Calc (BldV) [Moles/Vol]10.1 mmol/LNormalUnKeenan Private Hospital Comment on above:Performed By: #### [id number] ####[facility] RESPIRATORY [id number] [place] [address] USACALCIUM IONIZED (MMOL/L) IN BLOOD1.18 mmol/L Normal1.15-1.33UnKeenan Private HospitalComment on above:Performed By: #### [id number] ####[facility] RESPIRATORY [id number] [place] [address] [place] CO2 (BldV) [Partial pressure]62 mm[Hg]Zhfn26-09DpaozmufppKeenan Private HospitalComment on above:Performed By: #### [id number] ####[facility] RESPIRATORY [id number] [place] [address] USAHCO3 (Bld) [Moles/Vol]37.5 mmol/L NormalUnKeenan Private HospitalComment on above:Performed By: #### [id number] ####[facility] RESPIRATORY [id number] [place] [address] USAOxygen (BldV) [Partial pressure]49 mm[Hg]Lofk46-14LlczjtygpvKeenan Private Hospital Comment on above:Performed By: #### [id number] ####[facility] RESPIRATORY [id number] [place] [address] USAOXYGEN SATURATION (%) IN VENOUS BLOOD79.9 %High 65.0-75.0[facility] & Brentwood HospitalComment on above:Performed By: #### [id number] ####[facility] RESPIRATORY [id number] [place] [address] USAPH OF VENOUS BLOOD7.79Uhhwcw4.31-7.41UnKeenan Private HospitalComment on above:Performed By: #### [id number] ####[facility] RESPIRATORY [id number] [place] [address] JEL92lw 38-89-398740DgbmmaLdxyqupirc of [place] Medical Vkierh05AhlpkfQiotcklzoaMarymount HospitalAPTSierra Tucson 48-21-6992SSEOKWUBY PARTIAL THROMBOPLASTIN TIME IN PPP BY COAGULATION ASSAY91.2 HhpdvsbKstb08.0-35.0 [facility] & Brentwood HospitalComment on above:Order Comment: Check aPTT every 6 hours while on heparin infusion, or per protocol.Result Comment: Clinical significance of the APTT is questionable in the presence of heparin. Performed By: #### [id number] ####[facility]OSP[facility] LAB (BEAKER)[address] [place], [place] [address]YOTSDJNB BLOOD GAS WITH CO-OXIMETRYon 19-81-9522Bpck excess Calc (Bld) [Moles/Vol]8.6 mmol/LHigh-2.0-3.0UnKeenan Private Hospital Comment on above:Performed By: #### [id number] ####[facility] RESPIRATORY [id number] [place] [address] USACARBOXYHEMOGLOBIN/HEMOGLOBIN TOTAL % IN BLOOD 1.6 %Normal0.0-3.0[facility] Brentwood HospitalComment on above:Performed By: #### [id number] ####[facility] RESPIRATORY [id number] [place] [address] USACO2 (Bld) [Partial pressure]47 mm[Hg]Nugfcr69-00NufqpdrrrsKeenan Private HospitalComment on above:Performed By: #### [id number] ####[facility] RESPIRATORY [id number] [facility] [place] [address] USADEOXYGENATED HEMOGLOBIN IN BLOOD2.3 %Normal1-5UnKeenan Private HospitalComment on above:Performed By: #### [id number] ####[facility] RESPIRATORY [id number] [place] [address] [place] HCO3 (Bld) [Moles/Vol]33.4 mmol/LHigh21.0-28.0UnKeenan Private HospitalComment on above:Performed By: #### [id number] ####[facility] RESPIRATORY [id number] [facility] [place] [address] USAHemoglobin (Bld) [Mass/Vol]9.4 g/dL Low11.7-17.4UnKeenan Private HospitalComment on above:Performed By: #### [id number] ####[facility] RESPIRATORY [id number] [place] [address] [place] DSV0SmehqkDvpkajkoszMarymount HospitalComment on above:Performed By: #### [id number] ####[facility] RESPIRATORY [id number] [facility] [place] [address] [place] METHEMOGLOBIN/100 IN BLOOD0.5 %Normal0.0-1.5UnKeenan Private Hospital Comment on above:Performed By: #### [id number] ####[facility] RESPIRATORY [id number] [facility] [place] [address] USAOxygen (Bld) [Partial pressure]72 mm[Hg]Low 83-100UnKeenan Private HospitalComment on above:Performed By: #### [id number] ####[facility] RESPIRATORY [id number] [place] [address] USAOXYGEN SATURATION (%) IN ARTERIAL BLOOD97.7 %Wvgbgw10.0-98.0UnKeenan Private HospitalComment on above:Performed By: #### [id number] ####[facility] RESPIRATORY [id number] [place] [address] USAOXYGENATED HEMOGLOBIN IN BLOOD95.7 %High90.0-95.0UnKeenan Private HospitalComment on above:Performed By: #### [id number] ####[facility] RESPIRATORY [id number] [place] [address] [place] pH (Bld)7.46 [pH]High7.35-7.45UnKeenan Private HospitalComment on above:Performed By: #### [id number] ####[facility] RESPIRATORY [id number] [place] [address] USASOURCE OF OXYGENNasal cannulaNormalUniversity Dayton VA Medical CenterComment on above:Performed By: #### [id number] ####[facility] RESPIRATORY [id number] [place] [address] USABASIC METABOLIC PANELon 02-03-2024 Anion gap [Moles/Vol]14 mmol/LNormal7-20UnKeenan Private Hospital Comment on above:Performed By: #### [id number] ####[facility] HOSPITAL LAB (BEAKER)[address] [place], [place] [address]Kiiltux [Mass/Vol]8.3 mg/dLLow8.6-10.3UnKeenan Private HospitalComment on above:Performed By: #### [id number] ####[facility] LAB (BEAKER)[address] [place], [place] [address]Gthqzvhg [Moles/Vol]94 mmol/INqz50-514RigugtcyvhKeenan Private HospitalComment on above:Performed By: #### [id number] ####[facility] LAB (BEAKER)[address] [place], [place] [address]RJ0 [Moles/Vol]31 mmol/DThxrnv33-41BzicdtqyklKeenan Private HospitalComment on above:Performed By: #### [id number] ####[facility] LAB (BEAKER)[address] [place], [place] [address]Xumxyatkio [Mass/Vol]1.51 mg/dLHigh0.60-1.20UnKeenan Private HospitalComment on above:Performed By: #### [id number] ####[facility] LAB (BEAKER)[address] [place], [place] [address]MWZDBIISVS FILTRATION RATE ML/MIN/1.73 SQ M.TQLSMEPCV35.7 mL/min/1.73m*2Low>60.0UnKeenan Private HospitalComment on above:Result Comment: [facility]???s estimated glomerular filtration rate (eGFR) will [...] anyone group of individuals.Performed By: #### [id number] ####[facility] LAB ([facility])[address] [place], [place] [address]Qejobva [Mass/Vol]155 mg/dCMavx26-017DdqbbnzksdKeenan Private HospitalComment on above:Performed By: #### [id number] ####[facility] LAB ([facility])[address] [place], [place] [address]Kqrsugdpg [Moles/Vol]4.0 mmol/LNormal3.5-5.1UnKeenan Private HospitalComment on above:Performed By: #### [id number] ####[facility] LAB ([facility])[address] [place], [place] [address]Zjpqau [Moles/Vol]135 mmol/LLow 136-145UnKeenan Private HospitalComment on above:Performed By: #### [id number] ####[facility] LAB ([facility])[address] [place], [place] [address]Ajku nitrogen [Mass/Vol]19 mg/dLNormal7-25UnKeenan Private HospitalComment on above:Performed By: #### [id number] ####[facility] LAB ([facility])[address] [place], [place] [address]RFRN NITROGEN/CREATININE (MASS RATIO) IN SER/PLAS12.6Normal [facility] HospitalComment on above:Performed By: #### [id number] ####[facility] LAB ([facility])[address] [place], [place] [address]Ymcmy gap [Moles/Vol]18 mmol/LNormal7-20UnKeenan Private HospitalComment on above:Performed By: #### [id number] ####[facility] LAB ([facility])[address] [place], [place] [address]Xxjxniq [Mass/Vol]9.0 mg/dLNormal8.6-10.3UnKeenan Private HospitalComment on above:Performed By: #### [id number] ####[facility] LAB ([facility])[address] [place], [place] [address]Xotmlmqv [Moles/Vol]96 mmol/CPev04-677 [facility] HospitalComment on above:Performed By: #### [id number] ####[facility] LAB ([facility])[address] [place], [place] [address]NG2 [Moles/Vol] 26 mmol/ZOcwmrr71-27NxdcefcjnhKeenan Private HospitalComment on above: Performed By: #### [id number] ####[facility] LAB ([facility])[address] [place], [place] [address]Khvlfnqxax [Mass/Vol]1.55 mg/dLHigh0.60-1.20UnKeenan Private HospitalComment on above:Performed By: #### [id number] ####[facility] LAB ([facility])[address] [place], [place] [address]QUEUVCSCEY FILTRATION RATE ML/MIN/1.73 SQ M.CMVAFSVDI44.7 mL/min/1.73m*2Low>60.0UnKeenan Private Hospital Comment on above:Result Comment: [facility]???s estimated glomerular filtration rate (eGFR) will [...] anyone group of individuals.Performed By: #### [id number] ####[facility] LAB ([facility])[address] [place] [address]Jslhdwm [Mass/Vol]90 mg/iDDnksoi90-630AeijhmccwjKeenan Private HospitalComment on above:Performed By: #### [id number] ####[facility] LAB ([facility])[address] [place] [address]Gyopssevf [Moles/Vol]4.6 mmol/LNormal3.5-5.1UnKeenan Private HospitalComment on above:Performed By: #### [id number] ####[facility] LAB ([facility])[address] [place] [address]Turvbc [Moles/Vol]135 mmol/LLow 136-145UnKeenan Private HospitalComment on above:Performed By: #### [id number] ####[facility] LAB ([facility])[address] [place] [address]Cprp nitrogen [Mass/Vol]20 mg/dLNormal7-25UnKeenan Private HospitalComment on above:Performed By: #### [id number] ####[facility] LAB ([facility])[address] [place] [address]JVYU NITROGEN/CREATININE (MASS RATIO) IN SER/PLAS12.9Normal [facility] HospitalComment on above:Performed By: #### [id number] ####[facility] LAB ([facility])[address] [place] [address]XDIQGLF, IONIZED on 41-85-4201FOCBVWL IONIZED (MMOL/L) IN BLOOD1.13 mmol/LLow1.15-1.33UnKeenan Private HospitalComment on above:Performed By: #### CALCIUM, IONIZED ####[facility] RESPIRATORY [id number] [place] [address] USACBC WITH AUTO DIFFERENTIALon 93-21-4067Osrrfkdty (Bld) [#/Vol]0.02 10*3/uLNormal0.00-0.20 [facility] CenterComment on above:Performed By: #### [id number] ####[facility] LAB (BEAKER)[address] [place], [place] [address]Tezpqjlms/100 WBC (Bld)0.3 %Normal0.0-1.0UnKeenan Private HospitalComment on above: Performed By: #### [id number] ####[facility] LAB (BEAKER)[address] [place], [place] [address]Fmppnyjojcn (Bld) [#/Vol]0.22 10*3/uLNormal0.00-0.50 [facility] HospitalComment on above:Performed By: #### [id number] ####[facility] LAB ([facility])[address] [place], [place] [address]Jsnxzcvvxbo/100 WBC (Bld)3.4 %Normal0.0-6.0UnKeenan Private HospitalComment on above: Performed By: #### [id number] ####[facility] LAB ([facility])[address] [place], [place] [address]Evixhflxclu distribution width (RBC) [Ratio]16.0 %High 11.5-15.0UnKeenan Private HospitalComment on above:Performed By: #### [id number] ####[facility] LAB (BEAKER)[address] [place] [address] ERYTHROCYTE MEAN CORPUSCULAR HEMOGLOBIN CONCENTRATION (G/DL) BY VVTOZBXFA02.5 g/dLLow32.0-35.0UnKeenan Private HospitalComment on above:Performed By: #### [id number] ####[facility] LAB (BEAKER)[address] [place], [place] [address]Xuhxnptckw (Bld) [Volume fraction]26.6 %Low36.0-48.0UnKeenan Private HospitalComment on above:Performed By: #### [id number] ####[facility] LAB (BEAKER)[address] [place], [place] [address]Jeuknwqyvl (Bld) [Mass/Vol]8.1 g/dLLow 12.0-15.0UnKeenan Private HospitalComment on above:Performed By: #### [id number] ####[facility] LAB ([facility] [place], [place] [address]Exyidnno granulocytes (Bld) [#/Vol]0.05 10*3/uLNormal0.00-0.20UnKeenan Private HospitalComment on above:Performed By: #### [id number] ####[facility] LAB ([facility])[address] [place], [place] [address]Wrvtfeyj granulocytes/100 WBC (Bld)0.8 %Normal0.0-1.0UnKeenan Private HospitalComment on above:Performed By: #### [id number] ####[facility] LAB ([facility])[address] [place] [address] Lymphocytes (Bld) [#/Vol]0.45 10*3/uLLow1.20-4.00UnKeenan Private HospitalComment on above:Performed By: #### [id number] ####[facility] LAB ([facility])[address] [facility] [place] [place] [address]Kkfgyxsruul/100 WBC (Bld)6.9 %Low 20.0-45.0UnKeenan Private HospitalComment on above:Performed By: #### [id number] ####[facility] LAB ([facility])[address] [place], [place] [address]TXW (RBC) [Entitic mass]27.9 ncUnugtt92.0-33.0UnKeenan Private Hospital Comment on above:Performed By: #### [id number] ####[facility] LAB ([facility])[address] [address], [place] [address]WVV (RBC) [Entitic vol]91.7 hCVuqbyx94.0-98.0 [facility] HospitalComment on above:Performed By: #### [id number] ####[facility] LAB ([facility] [facility] [place] [address]Bathloico (Bld) [#/Vol]0.46 10*3/uLNormal0.10-1.00UnKeenan Private HospitalComment on above:Performed By: #### [id number] ####[facility] LAB ([facility])[address] [place] [address]Pjblyclwf/100 WBC (Bld)7.1 %Normal5.0-12.0UnKeenan Private HospitalComment on above:Performed By: #### [id number] ####[facility] LAB ([facility])[address] [place] [address]Urrlibozfbc (Bld) [#/Vol] 5.31 10*3/uLNormal1.60-7.60UnKeenan Private HospitalComment on above: Performed By: #### [id number] ####[facility] LAB ([facility])[address] [place] [address]Gxsmqunslhm/100 WBC (Bld)81.5 %High40.0-72.0UnKeenan Private HospitalComment on above:Performed By: #### [id number] ####[facility] LAB ([facility])[address] [place] [address]DLZM (PER 100 WBCS) BY AUTOMATED COUNT0.0 %Eexmqn7AoiitsypfvKeenan Private HospitalComment on above: Performed By: #### [id number] ####[facility] LAB ([facility])[address] [place] [address]IMCZUMSTT (10*3/UL) IN BLOOD AUTOMATED [id number] 10*3/uLNormal 150-400UnKeenan Private HospitalComment on above:Performed By: #### [id number] ####[facility] LAB ([facility])[address] [place], [place] [address]EVT (Bld) [#/Vol]2.90 10*6/uLLow3.80-5.00UnKeenan Private HospitalComment on above:Performed By: #### [id number] ####[facility] LAB ([facility])[address] [place], [place] [address]VMX (Bld) [#/Vol]6.51 10*3/uLNormal4.00-10.60UnKeenan Private HospitalComment on above:Performed By: #### [id number] ####[facility] LAB (BEAKER)[address] [place], [place] [address]Swcwytfga (Bld) [#/Vol] 0.02 10*3/uLNormal0.00-0.20UnKeenan Private HospitalComment on above: Performed By: #### [id number] ####[facility] LAB ([facility])[address] [place], [place] [address]Yhpuzgilo/100 WBC (Bld)0.2 %Normal0.0-1.0UnKeenan Private HospitalComment on above:Performed By: #### [id number] ####[facility] LAB ([facility])[address] [place], [place] [address]Ylqpugnkrue (Bld) [#/Vol]0.33 10*3/uL Normal0.00-0.50UnKeenan Private HospitalComment on above:Performed By: #### [id number] ####[facility] LAB ([facility])[address] [place] [address] Eosinophils/100 WBC (Bld)3.8 %Normal0.0-6.0UnKeenan Private Hospital Comment on above:Performed By: #### [id number] ####[facility] LAB (AKER)[address] [place], [place] [address]Dieelhkhrbf distribution width (RBC) [Ratio]16.2 % High11.5-15.0UnKeenan Private HospitalComment on above:Performed By: #### [id number] ####[facility] LAB (BEAKER)[address] [place] [address] ERYTHROCYTE MEAN CORPUSCULAR HEMOGLOBIN CONCENTRATION (G/DL) BY ZXSVEIQTL71.4 g/dLLow32.0-35.0UnKeenan Private HospitalComment on above:Performed By: #### [id number] ####[facility] LAB (BEAKER)[address] [place], [place] [address]Svojqlnvcu (Bld) [Volume fraction]30.9 %Low36.0-48.0UnKeenan Private HospitalComment on above:Performed By: #### [id number] ####[facility] LAB (BEAKER)[address] [place], [place] [address]Ueqdjnyfcc (Bld) [Mass/Vol]9.7 g/dLLow 12.0-15.0UnKeenan Private HospitalComment on above:Performed By: #### [id number] ####[facility] LAB ([facility])[address] [place], [place] [address]Splqojsl granulocytes (Bld) [#/Vol]0.06 10*3/uLNormal0.00-0.20UnKeenan Private HospitalComment on above:Performed By: #### [id number] ####[facility] LAB ([facility])[address] [place], [place] [address]Hdvcxzcn granulocytes/100 WBC (Bld)0.7 %Normal0.0-1.0UnKeenan Private HospitalComment on above:Performed By: #### [id number] ####[facility] LAB (BEAKER)[address] [place] [address] Lymphocytes (Bld) [#/Vol]1.07 10*3/uLLow1.20-4.00UnKeenan Private HospitalComment on above:Performed By: #### [id number] ####[facility] LAB (BEAKER)[address] [place], [place] [address]Cyrnilsseyo/100 WBC (Bld)12.4 %Low 20.0-45.0UnKeenan Private HospitalComment on above:Performed By: #### [id number] ####[facility] LAB (BEAKER)[address] [place], [place] [address]VNW (RBC) [Entitic mass]28.0 rlSlpnyj64.0-33.0UnKeenan Private Hospital Comment on above:Performed By: #### [id number] ####[facility] LAB (BEAKER)[address] [place], [place] [address]FEI (RBC) [Entitic vol]89.0 jRTfbuvs24.0-98.0 [facility] HospitalComment on above:Performed By: #### [id number] ####[facility] LAB (BEAKER)[address] [place] [address]Jjimmmbyc (Bld) [#/Vol]0.51 10*3/uLNormal0.10-1.00UnKeenan Private HospitalComment on above:Performed By: #### [id number] ####[facility] LAB ([facility])[address] [place] [address]Cmagvvztm/100 WBC (Bld)5.9 %Normal5.0-12.0UnKeenan Private HospitalComment on above:Performed By: #### [id number] ####[facility] LAB ([facility])[address] [place] [address]Beqfkcykfzz (Bld) [#/Vol] 6.63 10*3/uLNormal1.60-7.60UnKeenan Private HospitalComment on above: Performed By: #### [id number] ####[facility] LAB ([facility])[address] [place] [address]Zwkecvmitcd/100 WBC (Bld)77.0 %High40.0-72.0UnKeenan Private HospitalComment on above:Performed By: #### [id number] ####[facility] LAB ([facility])[address] [place] [address]BLVV (PER 100 WBCS) BY AUTOMATED COUNT0.0 %Auaxxg4PbyizrkqiyKeenan Private HospitalComment on above: Performed By: #### [id number] ####[facility] LAB (BEAKER)[address] [place] [address]EECCQJJVZ (10*3/UL) IN BLOOD AUTOMATED INHSL950 10*3/uLNormal 150-400UnKeenan Private HospitalComment on above:Performed By: #### [id number] ####[facility] LAB (BEAKER)[address] [place] [address]FHS (Bld) [#/Vol]3.47 10*6/uLLow3.80-5.00UnKeenan Private HospitalComment on above:Performed By: #### [id number] ####[facility] ([facility])[address] [place] [address]GPH (Bld) [#/Vol]8.62 10*3/uLNormal4.00-10.60UnKeenan Private HospitalComment on above:Performed By: #### [id number] ####[facility] ([facility])[address] [place], [place] [address]MPZVLPWRVVFFH METABOLIC PANELon 14-18-2717Tsxlctb [Mass/Vol]3.5 g/dLNormal3.5-5.7UnKeenan Private HospitalComment on above:Performed By: #### [id number] ####[facility] ([facility])[address] [place], [place] [address]PAP [Catalytic activity/Vol]96 U/L Yhkmwz82-545UxadhnuwolKeenan Private HospitalComment on above:Performed By: #### [id number] ####[facility] ([facility])[address] [place], [place] [address]NJV [Catalytic activity/Vol]5 U/LLow7-52UnKeenan Private HospitalComment on above:Performed By: #### [id number] ####[facility] ([facility])[address] [place], [place] [address]Ccgza gap [Moles/Vol]14 mmol/LNormal7-20UnKeenan Private HospitalComment on above:Performed By: #### [id number] ####[facility] ([facility])[address] [place], [place] [address]FIW [Catalytic activity/Vol]11 U/LLow 13-39UnKeenan Private HospitalComment on above:Performed By: #### [id number] ####[facility] ([facility])[address] [place], [place] [address]Tvjnwnvxx [Mass/Vol]0.8 mg/dLNormal0.3-1.0UnKeenan Private HospitalComment on above:Performed By: #### [id number] ####[facility] (BEAKER)[address] [place], [place] [address]Vlytyay [Mass/Vol]9.2 mg/dLNormal8.6-10.3UnKeenan Private HospitalComment on above:Performed By: #### [id number] ####[facility] (BEAKER)[address] [place], [place] [address]Gkgvtvoz [Moles/Vol]95 mmol/QEsn96-169 [facility] HospitalComment on above:Performed By: #### [id number] ####[facility] (AKER)[address] [place], [place] [address]MR1 [Moles/Vol] 31 mmol/XZqlygz47-55AfyltcuzhhKeenan Private HospitalComment on above: Performed By: #### [id number] ####[facility] ([facility])[address] [place], [place] [address]Oumlprsjij [Mass/Vol]1.54 mg/dLHigh0.60-1.20UnKeenan Private HospitalComment on above:Performed By: #### [id number] ####[facility] ([facility])[address] [place], [place] [address]ABMUDAVIJN FILTRATION RATE ML/MIN/1.73 SQ M.MBUZEKFNJ28.9 mL/min/1.73m*2Low>60.0UnKeenan Private Hospital Comment on above:Result Comment: [facility]???s estimated glomerular filtration rate (eGFR) will [...] anyone group of individuals.Performed By: #### [id number] ####[facility] ([facility])[address] [place], [place] [address]Tmjdvmj [Mass/Vol]89 mg/yPMzwjie15-045VohrubucpvKeenan Private HospitalComment on above:Performed By: #### [id number] ####[facility] ([facility])[address] [place], [place] [address]Dhuentdch [Moles/Vol]4.1 mmol/LNormal3.5-5.1UnKeenan Private HospitalComment on above:Performed By: #### [id number] ####[facility] ([facility])[address] [place], [place] [address]Unhumef [Mass/Vol]6.2 g/dLNormal 6.0-8.3UnKeenan Private HospitalComment on above:Performed By: #### [id number] ####[facility] ([facility])[address] [place], [place] [address]Wruynl [Moles/Vol]136 mmol/NDxcfhk350-562HbrltotkleKeenan Private HospitalComment on above:Performed By: #### [id number] ####[facility] ([facility])[address] [place], [place] [address]Jibz nitrogen [Mass/Vol]20 mg/dLNormal7-25UnKeenan Private HospitalComment on above:Performed By: #### [id number] ####[facility] ([facility])[address] [place], [place] [address]ENOA NITROGEN/CREATININE (MASS RATIO) IN SER/PLAS13.0NormalUniversMarymount HospitalComment on above: Performed By: #### [id number] ####[facility] ([facility])[address] [place], [place] [address]LZWAYIIxh 54-73-7041INRPIGMRwnofzLfqcawbaks of [place] Medical CenterCTA ABDOMEN PELVIS W IV CONTRASTon 98-77-6673SNO ABDOMEN PELVIS W IV CONTRASTNormal [facility] HospitalLACTIC ACID WITH 4 HOUR REFLEXon 02-03-2024 LACTATE (MMOL/L) IN SER/PLAS0.7 mmol/LNormal0.5-2.2UnKeenan Private HospitalComment on above:Performed By: #### [id number] ####[facility] ([facility])[address] [place], [place] [address]BBFFDNB (MMOL/L) IN SER/PLAS1.4 mmol/L Normal0.5-2.2UnKeenan Private HospitalComment on above:Performed By: #### [id number] ####[facility] ([facility])[address] [place] [address] MAGNESIUMon 41-86-1166Orcaguiad [Mass/Vol]2.3 mg/dLNormal1.9-2.7UnKeenan Private HospitalComment on above:Performed By: #### [id number] ####[facility] ([facility])[address] [place], [place] [address]Acaujtkmx [Mass/Vol]2.3 mg/dLNormal1.9-2.7UnKeenan Private HospitalComment on above:Performed By: #### [id number] ####[facility] ([facility])[address] [place] [address] NURSNOTEon 14-36-5787BKHIOMHYNbxtauQzrxnhcpaj of [place] Medical CenterPHOSPHORUS on 76-42-6063Pmiuozazk [Mass/Vol]4.8 mg/dLNormal2.5-5.0UnKeenan Private HospitalComment on above:Performed By: #### [id number] ####[facility] ([facility])[address] [place], [place] [address]VKMQ GLUCOSE METER UNSOLICITED RESULTS on 49-83-7353Cdzmhhv [Mass/Vol]105 mg/xYKsvciu41-626RfuemrmoesKeenan Private HospitalComment on above:Order Comment: Waived Testing in the ED is performed under the ED CLIA certificate #[id number].Result Comment: [id number] By: #### [id number] ####[facility] ([facility])[address] [place] [address] Glucose [Mass/Vol]110 mg/yVMnjz15-556VgyrzgxefmKeenan Private HospitalComment on above:Order Comment: Waived Testing in the ED is performed under the ED CLIA certificate #[id number].Result Comment: [id number] By: #### [id number] ####[facility] ([facility])[address] [place], [place] [address]HKWZBZZSS, WHOLE BLOODon 99-02-5202Ogsznicei [Moles/Vol]4.2 mmol/LNormal3.5-5.1UnKeenan Private HospitalComment on above:Performed By: #### POTASSIUM, WHOLE BLOOD ####[facility] RESPIRATORY [id number] [facility] [place] [address] USASODIUM, WHOLE BLOODon 40-85-8916XSAWIT, WHOLE APUDN724Upc846-716YqbltxsihoKeenan Private HospitalComment on above:Performed By: #### SODIUM, WHOLE BLOOD ####[facility] RESPIRATORY [id number] [facility] [place] [address] USATROPONIN Ion 02-03-2024 Troponin I.cardiac [Mass/Vol]0.05 ng/mLHigh0.00-0.04UnKeenan Private HospitalComment on above:Performed By: #### [id number] ####[facility] ([facility])[address] [facility] [place], [place] [address]Gfimrqwv I.cardiac [Mass/Vol]0.06 ng/mLHigh0.00-0.04UnKeenan Private HospitalComment on above:Performed By: #### [id number] ####[facility] ([facility])[address] [place] [place] [address] Troponin I.cardiac [Mass/Vol]0.05 ng/mLHigh0.00-0.04UnKeenan Private HospitalComment on above:Performed By: #### [id number] ####[facility] ([facility])[address] [facility] [facility] [place], [place] [address]XOOC AND SCREENon 03-72-2242TI SCREEN NegativeNormalUniversity Dayton VA Medical CenterComment on above:Performed By: #### [id number] ####[facility] BLOOD BANK,ABO group Nom (Bld)ONormalUnKeenan Private HospitalComment on above:Performed By: #### [id number] ####[facility] BLOOD BANK,RH TYPE IN BLOODPositiveNormalUniversMarymount HospitalComment on above: Performed By: #### [id number] ####[facility] BLOOD BANK,30on 85-76-219440HzvbxnLkfmuudkra of [place] Medical Vpbfdc15AdstptMdsolrguuhMarymount HospitalARTERIAL BLOOD GAS WITH IONIZED CALCIUMon 12-44-1598Ixrv excess Calc (Bld) [Moles/Vol]3.2 mmol/LHigh-2.0-3.0UnKeenan Private HospitalComment on above:Order Comment: Bipap 12/6Performed By: #### [id number] ####[facility] RESPIRATORY [id number] [place] [address] USACALCIUM IONIZED (MMOL/L) IN BLOOD1.19 mmol/L Normal1.15-1.33UnKeenan Private HospitalComment on above:Order Comment: Bipap 12/6Performed By: #### [id number] ####[facility] RESPIRATORY [id number] [place] [address] USACO2 (Bld) [Partial pressure]45 mm[Hg]Normal 35-48UnKeenan Private HospitalComment on above:Order Comment: Bipap 12/6Performed By: #### [id number] ####[facility] RESPIRATORY [id number] [place] [address] SZNFHW272 %NormalUnKeenan Private HospitalComment on above:Order Comment: Bipap 12/6Performed By: #### [id number] ####[facility] RESPIRATORY [id number] [place] [address] USAHCO3 (Bld) [Moles/Vol] 28.5 mmol/LHigh21.0-28.0UnKeenan Private HospitalComment on above: Order Comment: Bipap 12/6Performed By: #### [id number] ####[facility] RESPIRATORY [id number] [place] [address] USAOxygen (Bld) [Partial pressure]187 mm[Hg]Rgmw63-236DfihugrxlgKeenan Private HospitalComment on above:Order Comment: Bipap 12/6Performed By: #### [id number] ####[facility] RESPIRATORY [id number] [place] [address] USAOXYGEN SATURATION (%) IN ARTERIAL VSFCV066.0 % High94.0-98.0UnKeenan Private HospitalComment on above:Order Comment: Bipap 12/6Performed By: #### [id number] ####[facility] RESPIRATORY [id number] [place] [address] USAPEEP6 uaT9NMineslTvvyuqaaevCommunity Memorial Hospital Comment on above:Order Comment: Bipap 12/6Performed By: #### [id number] ####[facility] RESPIRATORY [id number] [place] [address] USApH (Bld)7.41 [pH]Normal 7.35-7.45UnKeenan Private HospitalComment on above:Order Comment: Bipap 12/6Performed By: #### [id number] ####[facility] RESPIRATORY [id number] [place] [address] USARESPIRATORY OQAW19TquhmuDyienbtuurCommunity Memorial HospitalComment on above:Order Comment: Bipap 12/6Performed By: #### [id number] ####[facility] RESPIRATORY [id number] [place] [address] USASOURCE OF OXYGENBi-PAPNormalUniversMarymount HospitalComment on above:Order Comment: Bipap 12/6Performed By: #### [id number] ####[facility] RESPIRATORY [id number] [place] [address] USAB-TYPE NATRIURETIC PEPTIDEon 02-02-2024 Natriuretic peptide B (Bld) [Mass/Vol]1109 pg/mLHigh0-100UnKeenan Private HospitalComment on above:Performed By: #### [id number] ####[facility] HOSPITAL LAB (BE[facility]ER)[address] [place], [place] [address]VTU WITH AUTO DIFFERENTIALon 76-46-5289Axxxemzee (Bld) [#/Vol]0.03 10*3/uLNormal0.00-0.20UnKeenan Private HospitalComment on above:Performed By: #### [id number] ####[facility] ([facility])[address] [place], [place] [address]Ltixjnqqq/100 WBC (Bld)0.4 %Normal 0.0-1.0UnKeenan Private HospitalComment on above:Performed By: #### [id number] ####[facility] ([facility])[address] [place] [address] Eosinophils (Bld) [#/Vol]0.24 10*3/uLNormal0.00-0.50UnKeenan Private HospitalComment on above:Performed By: #### [id number] ####[facility] ([facility])[address] [place], [place] [address]Xkanwcnyrmp/100 WBC (Bld)3.0 %Normal 0.0-6.0UnKeenan Private HospitalComment on above:Performed By: #### [id number] ####[facility] ([facility])[address] [place] [address] Erythrocyte distribution width (RBC) [Ratio]16.5 %High11.5-15.0UnKeenan Private HospitalComment on above:Performed By: #### [id number] ####[facility] ([facility])[address] [place], [place] [address]PPCIOFUBVEQ MEAN CORPUSCULAR HEMOGLOBIN CONCENTRATION (G/DL) BY HZSSAPFTE54.4 g/dLLow32.0-35.0 [facility] HospitalComment on above:Performed By: #### [id number] ####[facility] LAB ([facility])[address] [place], [place] [address]Mbmgxpwvia (Bld) [Volume fraction]29.3 %Low36.0-48.0UnKeenan Private HospitalComment on above:Performed By: #### [id number] ####[facility] LAB (BE[facility])[address] [place], [place] [address]Bhzsswuevm (Bld) [Mass/Vol]8.9 g/dLLow12.0-15.0UnKeenan Private HospitalComment on above:Performed By: #### [id number] ####[facility] LAB (BE[facility])[address] [place] [address]Jaaxagdf granulocytes (Bld) [#/Vol]0.07 10*3/uLNormal0.00-0.20UnKeenan Private Hospital Comment on above:Performed By: #### [id number] ####[facility] ([facility])[address] [facility], [place] [address]Alrameaq granulocytes/100 WBC (Bld)0.9 %Normal 0.0-1.0UnKeenan Private HospitalComment on above:Performed By: #### [id number] ####[facility] ([facility])[address] [place] [place] [address] Lymphocytes (Bld) [#/Vol]1.34 10*3/uLNormal1.20-4.00UnKeenan Private HospitalComment on above:Performed By: #### [id number] ####[facility] ([facility])[address] [facility] [place] [address]Fvdwldvgbhw/100 WBC (Bld)16.5 %Low 20.0-45.0UnKeenan Private HospitalComment on above:Performed By: #### [id number] ####[facility] ([facility])[address] [place], [place] [address]GUB (RBC) [Entitic mass]28.2 ilRidqjb44.0-33.0UnKeenan Private Hospital Comment on above:Performed By: #### [id number] ####[facility] (BE[facility])[address] [facility] [place] [place] [address]VUD (RBC) [Entitic vol]92.7 uYCncknt56.0-98.0 [facility] HospitalComment on above:Performed By: #### [id number] ####[facility] (BE[facility]ER)[address] [facility] [place], [place] [address]Uvzxfwdzc (Bld) [#/Vol]0.52 10*3/uLNormal0.10-1.00UnKeenan Private HospitalComment on above:Performed By: #### [id number] ####[facility] ([facility])[address] [place] [address]Sfbowyukb/100 WBC (Bld)6.4 %Normal5.0-12.0UnKeenan Private HospitalComment on above:Performed By: #### [id number] ####[facility] ([facility])[address] [place] [address]Vqrkemjsvok (Bld) [#/Vol] 5.91 10*3/uLNormal1.60-7.60UnKeenan Private HospitalComment on above: Performed By: #### [id number] ####[facility] ([facility])[address] [place] [address]Iglfbhpfaqb/100 WBC (Bld)72.8 %High40.0-72.0UnKeenan Private HospitalComment on above:Performed By: #### [id number] ####[facility] ([facility])[address] [place] [address]GPGV (PER 100 WBCS) BY AUTOMATED COUNT0.0 %Ybtums4JzxfvesighKeenan Private HospitalComment on above: Performed By: #### [id number] ####[facility] ([facility])[address] [place] [address]HRRHSGSJD (10*3/UL) IN BLOOD AUTOMATED ITUFI237 10*3/uLNormal 150-400UnKeenan Private HospitalComment on above:Performed By: #### [id number] ####[facility] LAB (BE[facility]ER)[address] [place], [place] [address]CSV (Bld) [#/Vol]3.16 10*6/uLLow3.80-5.00UnKeenan Private HospitalComment on above:Performed By: #### [id number] ####[facility] LAB (BEAKER)[address] [place], [place] [address]IIK (Bld) [#/Vol]8.11 10*3/uLNormal4.00-10.60UnKeenan Private HospitalComment on above:Performed By: #### [id number] ####[facility] LAB ([facility])[address] [place], [place] [address]GPVCGUUXEPFRC METABOLIC PANELon 85-37-9179Hubpbqx [Mass/Vol]3.4 g/dLLow3.5-5.7UnKeenan Private HospitalComment on above:Performed By: #### [id number] ####[facility] ([facility])[address] [place], [place] [address]NTY [Catalytic activity/Vol]90 U/L Bonyib24-073OhtvnlahegKeenan Private HospitalComment on above:Performed By: #### [id number] ####[facility] ([facility])[address] [place], [place] [address]SIU [Catalytic activity/Vol]5 U/LLow7-52UnKeenan Private HospitalComment on above:Performed By: #### [id number] ####[facility] ([facility])[address] [place], [place] [address]Vfshd gap [Moles/Vol]9 mmol/LNormal7-20UnKeenan Private HospitalComment on above:Performed By: #### [id number] ####[facility] ([facility])[address] [place], [place] [address]CZW [Catalytic activity/Vol]11 U/LLow 13-39UnKeenan Private HospitalComment on above:Performed By: #### [id number] ####[facility] ([facility])[address] [place], [place] [address]Askfiispd [Mass/Vol]0.5 mg/dLNormal0.3-1.0UnKeenan Private HospitalComment on above:Performed By: #### [id number] ####[facility] ([facility])[address] [place], [place] [address]Wonppmk [Mass/Vol]8.3 mg/dLLow8.6-10.3UnKeenan Private HospitalComment on above:Performed By: #### [id number] ####[facility] ([facility])[address] [place], [place] [address]Ektizfdc [Moles/Vol]101 mmol/LNormal 98-107UnKeenan Private HospitalComment on above:Performed By: #### [id number] ####[facility] ([facility])[address] [place], [place] [address] [Moles/Vol]26 mmol/SAsknxi29-22NjaupyiafuKeenan Private HospitalComment on above:Performed By: #### [id number] ####[facility] ([facility])[address] [place], [place] [address]Yhhfbzlipx [Mass/Vol]1.28 mg/dLHigh0.60-1.20UnKeenan Private HospitalComment on above:Performed By: #### [id number] ####[facility] ([facility])[address] [place], [place] [address]KCYUZTHNNR FILTRATION RATE ML/MIN/1.73 SQ M.IDAQFJPTW13.4 mL/min/1.73m*2Low>60.0UnKeenan Private HospitalComment on above:Result Comment: [facility]???s estimated glomerular filtration rate (eGFR) will [...] anyone group of individuals.Performed By: #### [id number] ####[facility] ([facility])[address] [place], [place] [address]Ckqljdb [Mass/Vol]95 mg/hHXbyttf88-544DergrexatxKeenan Private HospitalComment on above:Performed By: #### [id number] ####[facility] ([facility])[address] [place], [place] [address]Rweiufwse [Moles/Vol]4.4 mmol/LNormal3.5-5.1UnKeenan Private HospitalComment on above:Performed By: #### [id number] ####[facility] ([facility])[address] [place] [address]Itheipq [Mass/Vol]5.7 g/dLLow 6.0-8.3UnKeenan Private HospitalComment on above:Performed By: #### [id number] ####[facility] ([facility])[address] [place] [address]Olzyip [Moles/Vol]132 mmol/MRev467-413QldjwfbvgyKeenan Private HospitalComment on above:Performed By: #### [id number] ####[facility] ([facility])[address] [place], [place] [address]Lhgj nitrogen [Mass/Vol]21 mg/dLNormal7-25UnKeenan Private HospitalComment on above:Performed By: #### [id number] ####[facility] ([facility])[address] [place], [place] [address]OZPH NITROGEN/CREATININE (MASS RATIO) IN SER/PLAS16.4NormalUniversMarymount HospitalComment on above: Performed By: #### [id number] ####[facility] LAB ([facility])[address] [place] [address]EQLFPFVyp 26-26-6742KCPFIPAWxwyryDfaxbufeym [facility] CONSULTNormalUniversity of [facility] HospitalCONSULTNormalUniversity [facility] Medical CenterHPon 97-40-6189HWJrbizoWahvqfyvun [facility] HPNormalUniversity [facility] Medical CenterLIPID PANELon 92-69-0273WSIO/HDL3.3 mg/dLNormalUniCommunity Memorial HospitalComment on above:Performed By: #### [id number] ####[facility] LAB ([facility])[address] [place] [address] Cholesterol [Mass/Vol]148 mg/nHIhqjct202-289GkyasybeogKeenan Private Hospital Comment on above:Performed By: #### [id number] ####[facility] LAB ([facility])[address] [place], [place] [address]Teoralkvv [Mass/Vol]100 mg/yPImyfnr93-620WbgcldqllvKeenan Private HospitalComment on above:Result Comment: TRIGLYCERIDE REFERENCE RANGE:20 YEARS AND OLDER CARDIOVASCULAR RISKLESS THAN 150 mg/dL LOW OXCY880 TO 199 mg/dL BORDERLINE ESZT715 mg/dL AND GREATER HIGH RISKPerformed By: #### [id number] ####[facility] LAB ([facility])[address] [place], [place] [address]Vecevkohe [Mass/Vol]83 mg/dLNormal0-160UnKeenan Private HospitalComment on above:Performed By: #### [id number] ####[facility] LAB ([facility])[address] [place], [place] [address]Jksfokzsi [Mass/Vol]45 mg/pWKdzqld13-08QbypduxtzqKeenan Private HospitalComment on above:Performed By: #### [id number] ####[facility] LAB ([facility])[address] [place], [place] [address]PXZ HDL CHOL. (LDL+VLDL)103Normal [facility] HospitalComment on above:Performed By: #### [id number] ####[facility] LAB ([facility])[address] [place], [place] [address]HCTPT VLDL-C20 mg/dLNormal0-40UnKeenan Private HospitalComment on above:Performed By: #### [id number] ####[facility] LAB ([facility])[address] [place] [address] MAGNESIUMon 73-12-0508Heirjexnx [Mass/Vol]2.6 mg/dLNormal1.9-2.7UnKeenan Private HospitalComment on above:Performed By: #### [id number] ####[facility] LAB ([facility])[address] [place], [place] [address]ZEXFNNBS COUNTon 52-03-2582QYCPDNEGZ (10*3/UL) IN BLOOD AUTOMATED VJBXF392 10*3/yWEsnuwq785-848 [facility] HospitalComment on above:Performed By: #### [id number] ####[facility] LAB ([facility])[address] [place], [place] [address]PLNO GLUCOSE METER UNSOLICITED RESULTSon 00-53-5721Yxxrxnv [Mass/Vol]117 mg/pURulk02-216 [facility] HospitalComment on above:Order Comment: Waived Testing in the ED is performed under the ED CLIA certificate #[id number].Result Comment: shamarPerformed By: #### [id number] ####[facility] LAB ([facility])[address] [place], [place] [address]Dezuwys [Mass/Vol]97 mg/uMXqtxby56-090CmamwrnpjhKeenan Private HospitalComment on above:Order Comment: Waived Testing in the ED is performed under the ED CLIA certificate #[id number].Result Comment: shamar Performed By: #### [id number] ####[facility] LAB ([facility])[address] [place], [place] [address]Rpcqklx [Mass/Vol]91 mg/gNOvtigd91-299OuvfywfudhKeenan Private HospitalComment on above:Order Comment: Waived Testing in the ED is performed under the ED CLIA certificate #[id number].Result Comment: [email or web address] Performed By: #### [id number] ####[facility] ([facility])[address] [place], [place] [address]Tsxygor [Mass/Vol]93 mg/tDDmzdqu67-968JdngwjymxyKeenan Private HospitalComment on above:Order Comment: Waived Testing in the ED is performed under the ED CLIA certificate #[id number].Result Comment: [email or web address] Performed By: #### [id number] ####[facility] ([facility])[address] [place], [place] [address]M3, FREEon 93-48-9087RWFIMFESU (T4) FREE (NG/DL) IN SER/PLAS 1.61 ng/dLNormal0.71-1.85UnKeenan Private HospitalComment on above: Performed By: #### [id number] ####[facility] ([facility])[address] [place], [place] [address]KJXUJAUA Ion 02-20-1258Tklgtqfm I.cardiac [Mass/Vol]0.06 ng/mLHigh0.00-0.04UnKeenan Private HospitalComment on above:Performed By: #### [id number] ####[facility] ([facility])[address] [place] [address] Troponin I.cardiac [Mass/Vol]0.08 ng/mLHigh0.00-0.04UnKeenan Private HospitalComment on above:Performed By: #### [id number] ####[facility] ([facility])[address] [place], [place] [address]Zzmhjzpg I.cardiac [Mass/Vol]0.07 ng/mLHigh0.00-0.04UnKeenan Private HospitalComment on above:Performed By: #### [id number] ####[facility] ([facility])[address] [place] [address] TSHon [id number] (MIU/L) IN SER/PLAS BY DETECTION LIMIT <= 0.05 MIU/L 5.42 mIU/LNormal0.34-5.60UnKeenan Private HospitalComment on above: Performed By: #### [id number] ####[facility] ([facility])[address] [place] [id number] [id number] patient is Moderately Stable - Low risk of patient condition declining or worsening The patient's goals for the shift include sleep/rest The clinical goals for the shift include VSS/restNormalUniversity [facility]30NormalUniversity [facility] VA Medical CenterBASIC METABOLIC PANELon 22-39-6335Ktvsp gap [Moles/Vol]8 mmol/LNormal7-20UnKeenan Private HospitalComment on above:Performed By: #### [id number] ####[facility] ([facility])[address] [place], [place] [address]Giudixy [Mass/Vol]8.0 mg/dLLow8.6-10.3 [facility] HospitalComment on above:Performed By: #### [id number] ####[facility] ([facility])[address] [place], [place] [address]Ydqjfumd [Moles/Vol]106 mmol/PEvvtja97-202CeunylloaiKeenan Private HospitalComment on above:Performed By: #### [id number] ####[facility] ([facility])[address] [place], [place] [address]VF0 [Moles/Vol]28 mmol/RFqvejg84-08ZsujjxehppKeenan Private HospitalComment on above:Performed By: #### [id number] ####[facility] ([facility])[address] [place], [place] [address]Rlpasucmye [Mass/Vol]1.39 mg/dLHigh 0.60-1.20UnKeenan Private HospitalComment on above:Performed By: #### [id number] ####[facility] ([facility])[address] [place], [place] [address]TBRXCWATXZ FILTRATION RATE ML/MIN/1.73 SQ M.IOGNZAFZN57.4 mL/min/1.73m*2Low>60.0UnKeenan Private HospitalComment on above:Result Comment: [facility]???s estimated glomerular filtration rate (eGFR) will [...] group of individuals. Performed By: #### [id number] ####[facility] ([facility])[address] [place], [place] [address]Ujayhvh [Mass/Vol]91 mg/xLTgfosx79-629WjmhxvtbhsKeenan Private HospitalComment on above:Performed By: #### [id number] ####[facility] ([facility])[address] [place], [place] [address]Dieqncdiy [Moles/Vol]4.3 mmol/LNormal 3.5-5.1UnKeenan Private HospitalComment on above:Performed By: #### [id number] ####[facility] ([facility])[address] [place] [address]Wunyec [Moles/Vol]138 mmol/BXtfulc073-164LmegxvdcvaKeenan Private HospitalComment on above:Performed By: #### [id number] ####[facility] LAB ([facility])[address] [place], [place] [address]Yfao nitrogen [Mass/Vol]29 mg/dLHigh7-25UnKeenan Private HospitalComment on above:Performed By: #### [id number] ####[facility] LAB ([facility])[address] [place], [place] [address]LUTZ NITROGEN/CREATININE (MASS RATIO) IN SER/PLAS20.9NormalUniversMarymount HospitalComment on above: Performed By: #### [id number] ####[facility] ([facility])[address] [facility] H[place]Us[place], [place] [address]ARL WITH AUTO DIFFERENTIALon 76-50-4924Qiebnmqio (Bld) [#/Vol]0.03 10*3/uLNormal0.00-0.20UnKeenan Private HospitalComment on above: Performed By: #### [id number] ####[facility] ([facility])[address] [place], [place] [address]Nzskhirji/100 WBC (Bld)0.3 %Normal0.0-1.0UnKeenan Private HospitalComment on above:Performed By: #### [id number] ####[facility] ([facility])[address] [place], [place] [address]Quplagxkrhn (Bld) [#/Vol]0.19 10*3/uL Normal0.00-0.50UnKeenan Private HospitalComment on above:Performed By: #### [id number] ####[facility] ([facility])[address] [place] [address] Eosinophils/100 WBC (Bld)1.8 %Normal0.0-6.0UnKeenan Private Hospital Comment on above:Performed By: #### [id number] ####[facility] LAB ([facility])[address] [place], [place] [address]Honijgbkxul distribution width (RBC) [Ratio]17.0 % High11.5-15.0UnKeenan Private HospitalComment on above:Performed By: #### [id number] ####[facility] LAB ([facility])[address] [place] [address] ERYTHROCYTE MEAN CORPUSCULAR HEMOGLOBIN CONCENTRATION (G/DL) BY LWOWMSWVB92.5 g/dLLow32.0-35.0UnKeenan Private HospitalComment on above:Performed By: #### [id number] ####[facility] ([facility])[address] [place], [place] [address]Xxwyscgzsl (Bld) [Volume fraction]27.2 %Low36.0-48.0UnKeenan Private HospitalComment on above:Performed By: #### [id number] ####[facility] ([facility])[address] [place], [place] [address]Tdrrxhfths (Bld) [Mass/Vol]8.3 g/dLLow 12.0-15.0UnKeenan Private HospitalComment on above:Performed By: #### [id number] ####[facility] ([facility])[address] [place], [place] [address]Huavfvfl granulocytes (Bld) [#/Vol]0.04 10*3/uLNormal0.00-0.20UnKeenan Private HospitalComment on above:Performed By: #### [id number] ####[facility] ([facility])[address] [place], [place] [address]Idhjzxam granulocytes/100 WBC (Bld)0.4 %Normal0.0-1.0UnKeenan Private HospitalComment on above:Performed By: #### [id number] ####[facility] (BE[facility])[address] [place] [address] Lymphocytes (Bld) [#/Vol]1.44 10*3/uLNormal1.20-4.00UnKeenan Private HospitalComment on above:Performed By: #### [id number] ####[facility] ([facility])[address] [place] [address]Vyiyyxuchdn/100 WBC (Bld)13.6 %Low 20.0-45.0UnKeenan Private HospitalComment on above:Performed By: #### [id number] ####[facility] ([facility])[address] [place] [address]YVH (RBC) [Entitic mass]28.3 mdXdceae24.0-33.0UnKeenan Private Hospital Comment on above:Performed By: #### [id number] ####[facility] LAB (BE[facility]ER)[address] [place], [place] [address]NML (RBC) [Entitic vol]92.8 gTMnhxfj38.0-98.0 [facility] HospitalComment on above:Performed By: #### [id number] ####[facility] LAB (BE[facility])[address] [place], [place] [address]Cnnmyohbc (Bld) [#/Vol]0.73 10*3/uLNormal0.10-1.00UnKeenan Private HospitalComment on above:Performed By: #### [id number] ####[facility] ([facility])[address] [place], [place] [address]Vbbjhisea/100 WBC (Bld)6.9 %Normal5.0-12.0UnKeenan Private HospitalComment on above:Performed By: #### [id number] ####[facility] ([facility])[address] [place], [place] [address]Gxoaovjwqny (Bld) [#/Vol] 8.12 10*3/uLHigh1.60-7.60UnKeenan Private HospitalComment on above: Performed By: #### [id number] ####[facility] ([facility])[address] [place], [place] [address]Dtwqnxaudxq/100 WBC (Bld)77.0 %High40.0-72.0UnKeenan Private HospitalComment on above:Performed By: #### [id number] ####[facility] ([facility])[address] [place] [address]WQYO (PER 100 WBCS) BY AUTOMATED COUNT0.0 %Kdlqmc2FkmrlrbbrnKeenan Private HospitalComment on above: Performed By: #### [id number] ####[facility] ([facility])[address] [place] [address]WJMCNLMXP (10*3/UL) IN BLOOD AUTOMATED PEBYS183 10*3/uLLow 150-400UnKeenan Private HospitalComment on above:Performed By: #### [id number] ####[facility] ([facility])[address] [place] [address]OSS (Bld) [#/Vol]2.93 10*6/uLLow3.80-5.00UnKeenan Private HospitalComment on above:Performed By: #### [id number] ####[facility] ([facility])[address] [place] [address]UMT (Bld) [#/Vol]10.55 10*3/uLNormal4.00-10.60UnKeenan Private HospitalComment on above:Performed By: #### [id number] ####[facility] ([facility])[address] [place] [address]RChi 23-53-6771KLKkfsdd [facility] HospitalMAGNESIUMon 77-18-3578Rbwzotowm [Mass/Vol]2.2 mg/dLNormal1.9-2.7UnKeenan Private HospitalComment on above:Performed By: #### [id number] ####[facility] LAB ([facility])[address] [place] [address]COHBETQGul 47-93-8515UWSWGYLFXpcjneEvwjaixxtv of [facility] NURSNOTENormalUniversMarymount HospitalOrders Onlyon 21-53-8292Ldfsaw [id number] Shayy Maynard 1945 F Date Provider Department Center 01/31/2024 Eusebia-MEGHANAYOVANY PUENTE [facility] [place] Count No family history on fileNormalUniversity Dayton VA Medical CenterPHOSPHORUSon 89-48-3466Tocfgjpjp [Mass/Vol]3.3 mg/dLNormal2.5-5.0UnKeenan Private HospitalComment on above:Performed By: #### [id number] ####[facility] ([facility])[address] [place], [place] [address]VRTQ GLUCOSE METER UNSOLICITED RESULTS on 19-62-0417Zupxxyd [Mass/Vol]210 mg/qNYvny48-936JruzitjgruKeenan Private HospitalComment on above:Order Comment: Waived Testing in the ED is performed under the ED CLIA certificate #[id number].Result Comment: [id number] By: #### [id number] ####[facility] ([facility])[address] [place] [address] Glucose [Mass/Vol]118 mg/bAGeup62-813EuswcuhezbKeenan Private HospitalComment on above:Order Comment: Waived Testing in the ED is performed under the ED CLIA certificate #[id number].Result Comment: [email or web address] By: #### [id number] ####[facility] ([facility])[address] [place], [place] [address]VRGPU METABOLIC PANELon 41-45-7796Mqkbx gap [Moles/Vol]7 mmol/LNormal7-20UnKeenan Private HospitalComment on above:Performed By: #### [id number] ####[facility] ([facility])[address] [place], [place] [address]Lrpumfa [Mass/Vol]8.0 mg/dLLow8.6-10.3 [facility] HospitalComment on above:Performed By: #### [id number] ####[facility] LAB ([facility])[address] [place], [place] [address]Cqagzkjl [Moles/Vol]107 mmol/BEgyykk99-785MiuqdworhcKeenan Private HospitalComment on above:Performed By: #### [id number] ####[facility] ([facility])[address] [place] [address]VI1 [Moles/Vol]27 mmol/ONtkarh45-06LfkrsqqcewKeenan Private HospitalComment on above:Performed By: #### [id number] ####[facility] ([facility])[address] [place] [address]Fqjbrovmzs [Mass/Vol]1.54 mg/dLHigh 0.60-1.20UnKeenan Private HospitalComment on above:Performed By: #### [id number] ####[facility] ([facility])[address] [place], [place] [address]DUYMZBPUOJ FILTRATION RATE ML/MIN/1.73 SQ M.QBPVVHBIK63.9 mL/min/1.73m*2Low>60.0UnKeenan Private HospitalComment on above:Result Comment: [facility]???s estimated glomerular filtration rate (eGFR) will [...] group of individuals. Performed By: #### [id number] ####[facility] ([facility])[address] [place] [address]Wagimrt [Mass/Vol]124 mg/aXMygn96-024DunmtqvigrKeenan Private HospitalComment on above:Performed By: #### [id number] ####[facility] ([facility])[address] [place] [address]Wcjjchmaa [Moles/Vol]4.4 mmol/LNormal 3.5-5.1UnKeenan Private HospitalComment on above:Performed By: #### [id number] ####[facility] ([facility])[address] [place], [place] [address]Lhobhs [Moles/Vol]137 mmol/VPjtnvu980-444NzpwzqjybcKeenan Private HospitalComment on above:Performed By: #### [id number] ####[facility] ([facility])[address] [place] [address]Dwsv nitrogen [Mass/Vol]25 mg/dLNormal7-25UnKeenan Private HospitalComment on above:Performed By: #### [id number] ####[facility] ([facility])[address] [place] [address]YSRX NITROGEN/CREATININE (MASS RATIO) IN SER/PLAS16.2NormalUnKeenan Private HospitalComment on above: Performed By: #### [id number] ####[facility] ([facility])[address] [place] [address]BUA WITH AUTO DIFFERENTIALon 77-61-2292Syssnzvfu (Bld) [#/Vol]0.02 10*3/uLNormal0.00-0.20UnKeenan Private HospitalComment on above: Performed By: #### [id number] ####[facility] ([facility])[address] [place] [address]Hmlwcbtcs/100 WBC (Bld)0.2 %Normal0.0-1.0UnKeenan Private HospitalComment on above:Performed By: #### [id number] ####[facility] ([facility])[address] [place] [address]Rvitajlanza (Bld) [#/Vol]0.06 10*3/uL Normal0.00-0.50UnKeenan Private HospitalComment on above:Performed By: #### [id number] ####[facility] ([facility])[address] [place] [address] Eosinophils/100 WBC (Bld)0.5 %Normal0.0-6.0UnKeenan Private Hospital Comment on above:Performed By: #### [id number] ####[facility] ([facility])[address] [place] [address]Ycfhibrallu distribution width (RBC) [Ratio]16.7 % High11.5-15.0UnKeenan Private HospitalComment on above:Performed By: #### [id number] ####[facility] LAB (BE[facility]ER)[address] [place] [address] ERYTHROCYTE MEAN CORPUSCULAR HEMOGLOBIN CONCENTRATION (G/DL) BY HXXRCWMIX42.5 g/dLLow32.0-35.0UnKeenan Private HospitalComment on above:Performed By: #### [id number] ####[facility] (BE[facility]ER)[address] [place], [place] [address]Dcofrndjvp (Bld) [Volume fraction]29.8 %Low36.0-48.0UnKeenan Private HospitalComment on above:Performed By: #### [id number] ####[facility] (BE[facility]ER)[address] [place], [place] [address]Mnbrkfcfvd (Bld) [Mass/Vol]9.1 g/dLLow 12.0-15.0UnKeenan Private HospitalComment on above:Performed By: #### [id number] ####[facility] (BE[facility]ER)[address] [place], [place] [address]Ivxpwjjj granulocytes (Bld) [#/Vol]0.07 10*3/uLNormal0.00-0.20UnKeenan Private HospitalComment on above:Performed By: #### [id number] ####[facility] (BE[facility]ER)[address] [place], [place] [address]Hhrdmxvr granulocytes/100 WBC (Bld)0.5 %Normal0.0-1.0UnKeenan Private HospitalComment on above:Performed By: #### [id number] ####[facility] (BE[facility]ER)[address] [place] [address] Lymphocytes (Bld) [#/Vol]1.15 10*3/uLLow1.20-4.00UnKeenan Private HospitalComment on above:Performed By: #### [id number] ####[facility] (BE[facility]ER)[address] [place], [place] [address]Chhtixqjczk/100 WBC (Bld)8.6 %Low 20.0-45.0UnKeenan Private HospitalComment on above:Performed By: #### [id number] ####[facility] ([facility])[address] [place] [address]ZOC (RBC) [Entitic mass]28.4 qiVrfezc47.0-33.0UnKeenan Private Hospital Comment on above:Performed By: #### [id number] ####[facility] ([facility])[address] [place] [address]ZZA (RBC) [Entitic vol]93.1 pZXavxhw04.0-98.0 [facility] HospitalComment on above:Performed By: #### [id number] ####[facility] ([facility])[address] [place] [address]Xlnrsajcr (Bld) [#/Vol]0.80 10*3/uLNormal0.10-1.00UnKeenan Private HospitalComment on above:Performed By: #### [id number] ####[facility] ([facility])[address] [place], [place] [address]Fintcvlwd/100 WBC (Bld)6.0 %Normal5.0-12.0UnKeenan Private HospitalComment on above:Performed By: #### [id number] ####[facility] ([facility])[address] [place] [address]Hfgpvatqxnj (Bld) [#/Vol] 11.20 10*3/uLHigh1.60-7.60UnKeenan Private HospitalComment on above: Performed By: #### [id number] ####[facility] ([facility])[address] [place] [address]Qvkoygoaxxw/100 WBC (Bld)84.2 %High40.0-72.0UnKeenan Private HospitalComment on above:Performed By: #### [id number] ####[facility] ([facility])[address] [place] [address]ARGE (PER 100 WBCS) BY AUTOMATED COUNT0.0 %Ezlpss1YbqrabmfvzKeenan Private HospitalComment on above: Performed By: #### [id number] ####[facility] ([facility])[address] [place] [address]GNEUNHOKJ (10*3/UL) IN BLOOD AUTOMATED [id number] 10*3/uLNormal 150-400UnKeenan Private HospitalComment on above:Performed By: #### [id number] ####[facility] ([facility])[address] [place] [address]ELH (Bld) [#/Vol]3.20 10*6/uLLow3.80-5.00UnKeenan Private HospitalComment on above:Performed By: #### [id number] ####[facility] ([facility])[address] [place] [address]QYU (Bld) [#/Vol]13.30 10*3/uLHigh4.00-10.60UnKeenan Private HospitalComment on above:Performed By: #### [id number] ####[facility] ([facility])[address] [place] [address]HZhv 89-05-6229YVMvsflg [facility] HospitalMAGNESIUMon 69-35-0189Vluqjhqfu [Mass/Vol]2.4 mg/dLNormal1.9-2.7UnKeenan Private HospitalComment on above:Performed By: #### [id number] ####[facility] ([facility])[address] [place] [address]RDXPTWAYZVhw 44-69-4432Iswfdkwra [Mass/Vol]3.6 mg/dLNormal2.5-5.0UnKeenan Private HospitalComment on above:Performed By: #### [id number] ####[facility] ([facility])[address] [place] [address]INNC GLUCOSE METER UNSOLICITED RESULTSon 66-75-2904Oidzeeh [Mass/Vol]271 mg/uHBxdi27-052PvjkxqyzvtKeenan Private HospitalComment on above:Order Comment: Waived Testing in the ED is performed under the ED CLIA certificate #[id number].Result Comment: [email or web address] Performed By: #### [id number] ####[facility] (BE[facility]ER)[address] [place], [place] [address]Oqqytdd [Mass/Vol]130 mg/xCBtyp79-619LgdxccjliwKeenan Private HospitalComment on above:Order Comment: Waived Testing in the ED is performed under the ED CLIA certificate #[id number].Result Comment: [email or web address] Performed By: #### [id number] ####[facility] (BEAKER)[address] [place], [place] [address]Gxovtyh [Mass/Vol]166 mg/pHScdv96-695ZmwahiclklKeenan Private HospitalComment on above:Order Comment: Waived Testing in the ED is performed under the ED CLIA certificate #[id number].Result Comment: [email or web address] Performed By: #### [id number] ####[facility] (BEAKER)[address] [place], [place] [address]Fyxarlf [Mass/Vol]151 mg/pTJnos36-294WxqdtzjwfbSuburban Community Hospital & Brentwood HospitalComment on above:Order Comment: Waived Testing in the ED is performed under the ED CLIA certificate #[id number].Result Comment: [email or web address] Performed By: #### [id number] ####[facility] (BE[facility]ER)[address] [place], [place] [address]Obykpsw [Mass/Vol]134 mg/fKTxwm97-311DbnfvutrbjKeenan Private HospitalComment on above:Order Comment: Waived Testing in the ED is performed under the ED CLIA certificate #[id number].Result Comment: [email or web address] Performed By: #### [id number] ####[facility] (BE[facility]ER)[address] [place], [place] [address]uk 08-28-206605Tfn patient is Moderately Stable - Low risk of patient condition declining or worsening The patient's goals for the shift include Pain Control The clinical goals for the shift include VSS, pain control, mobilityNormal [place] [address]NormalUniCommunity Memorial Hospital ARTERIAL BLOOD GAS WITH CO-OXIMETRYon 88-71-8664Pvev excess Calc (Bld) [Moles/Vol]0.2 mmol/LNormal-2.0-3.0[facility] HospitalComment on above:Performed By: #### [id number] ####[facility] RESPIRATORY [id number] [place] [address] USACARBOXYHEMOGLOBIN/HEMOGLOBIN TOTAL % IN BLOOD1.4 %Normal 0.0-3.0UnKeenan Private HospitalComment on above:Performed By: #### [id number] ####[facility] RESPIRATORY [id number] [place] [address] USACO2 (Bld) [Partial pressure]38 mm[Hg]Jzaokq80-01LfeezevwnvSuburban Community Hospital & [facility] Comment on above:Performed By: #### [id number] ####[facility] RESPIRATORY [id number] [place] [address] USADEOXYGENATED HEMOGLOBIN IN BLOOD0.4 %Low1-5 [facility] HospitalComment on above:Performed By: #### [id number] ####[facility] RESPIRATORY [id number] [place] [address] USAHCO3 (Bld) [Moles/Vol]24.6 mmol/UZqajbz48.0-28.0[facility] HospitalComment on above:Performed By: #### [id number] ####[facility] RESPIRATORY [id number] [place] [address] USAHemoglobin (Bld) [Mass/Vol]10.5 g/dLLow11.7-17.4 [facility] HospitalComment on above:Performed By: #### [id number] ####[facility] RESPIRATORY [id number] [place] [address] WTWTUC6Vgikad [facility] Brent[facility] HospitalComment on above:Performed By: #### [id number] ####[facility] RESPIRATORY [id number] [place] [address] [place] METHEMOGLOBIN/100 IN BLOOD0.7 %Normal0.0-1.5UnKeenan Private Hospital Comment on above:Performed By: #### [id number] ####[facility] RESPIRATORY [id number] [place] [address] USAOxygen (Bld) [Partial pressure]116 mm[Hg]High 83-100UnKeenan Private HospitalComment on above:Performed By: #### [id number] ####[facility] RESPIRATORY [id number] AV[facility] [place] [address] USAOXYGEN SATURATION (%) IN ARTERIAL BLOOD99.6 %High94.0-98.0UnKeenan Private HospitalComment on above:Performed By: #### [id number] ####[facility] RESPIRATORY [id number] [place] [address] USAOXYGENATED HEMOGLOBIN IN BLOOD97.5 %High90.0-95.0UnKeenan Private HospitalComment on above:Performed By: #### [id number] ####[facility] RESPIRATORY [id number] [place] [address] [facility] pH (Bld)7.42 [pH]Normal7.35-7.45UnKeenan Private HospitalComment on above:Performed By: #### [id number] ####[facility] RESPIRATORY [id number] [place] [address] USASOURCE OF OXYGENNasal cannulaNormalUniversity Dayton VA Medical CenterComment on above:Performed By: #### [id number] ####[facility] RESPIRATORY [id number] [place] [address] USAARTERIAL BLOOD GAS WITH IONIZED CALCIUMon 77-36-3404Wajh excess Calc (Bld) [Moles/Vol]-0.6000 mmol/LNormal -2.0-3.0UnKeenan Private HospitalComment on above:Performed By: #### [id number] ####[facility] RESPIRATORY [id number] [place] [address] [place] CALCIUM IONIZED (MMOL/L) IN BLOOD1.19 mmol/LNormal1.15-1.33UnKeenan Private HospitalComment on above:Performed By: #### [id number] ####[facility] RESPIRATORY [id number] [place] [address] USACO2 (Bld) [Partial pressure]46 mm[Hg]Unwsge40-28ZikqrhjfhxKeenan Private HospitalComment on above:Performed By: #### [id number] ####[facility] RESPIRATORY [id number] [place] [address] USAHCO3 (Bld) [Moles/Vol]25.4 mmol/UJmwmuw85.0-28.0UnKeenan Private HospitalComment on above:Performed By: #### [id number] ####[facility] RESPIRATORY [id number] [place] [address] NGADJA6AnvnmqKilgxdxhzfCommunity Memorial HospitalComment on above:Performed By: #### [id number] ####[facility] RESPIRATORY [id number] [place] [address] USAOxygen (Bld) [Partial pressure]97 mm[Hg]Nskciq08-235BzldhyynknKeenan Private HospitalComment on above:Performed By: #### [id number] ####[facility] RESPIRATORY [id number] [place] [address] USAOXYGEN SATURATION (%) IN ARTERIAL BLOOD99.4 %High94.0-98.0UnKeenan Private HospitalComment on above:Performed By: #### [id number] ####[facility] RESPIRATORY [id number] [place] [address] USApH (Bld)7.35 [pH]Normal 7.35-7.45UnKeenan Private HospitalComment on above:Performed By: #### [id number] ####[facility] RESPIRATORY [id number] [place] [address] USASOURCE OF OXYGENNasal cannulaNormalUniCommunity Memorial HospitalComment on above:Performed By: #### [id number] ####[facility] RESPIRATORY [id number] [place] [address] USABASIC METABOLIC PANELon 19-13-6158Scpzv gap [Moles/Vol]11 mmol/LNormal7-20UnKeenan Private HospitalComment on above:Performed By: #### [id number] ####[facility] HOSPITAL LAB (BEAKER)[address] [place] [address] Calcium [Mass/Vol]8.0 mg/dLLow8.6-10.3UnKeenan Private HospitalComment on above:Performed By: #### [id number] ####[facility] LAB ([facility])[address] [place] [address]Tqktokus [Moles/Vol]105 mmol/EHjhxke55-462CjefxpejesKeenan Private HospitalComment on above:Performed By: #### [id number] ####[facility] LAB ([facility])[address] [place] [address]LG6 [Moles/Vol]25 mmol/LNormal 21-31UnKeenan Private HospitalComment on above:Performed By: #### [id number] ####[facility] LAB ([facility])[address] [place], [place] [address]Lpesnvmsgv [Mass/Vol]1.18 mg/dLNormal0.60-1.20UnKeenan Private HospitalComment on above:Performed By: #### [id number] ####[facility] LAB ([facility])[address] [place], [place] [address]YDWRSQSPGG FILTRATION RATE ML/MIN/1.73 SQ M.SWKLUNQAC24.7 mL/min/1.73m*2Low>60.0UnKeenan Private HospitalComment on above:Result Comment: [facility]???s estimated glomerular filtration rate (eGFR) will [...] anyone group of individuals.Performed By: #### [id number] ####[facility] LAB ([facility])[address] [place], [place] [address]Phztmsq [Mass/Vol]204 mg/fRTayu49-896FtismqkdilKeenan Private HospitalComment on above:Performed By: #### [id number] ####[facility] LAB (BEAKER)[address] [place] [address]Ffzdhkgdh [Moles/Vol]3.8 mmol/L Normal3.5-5.1UnKeenan Private HospitalComment on above:Performed By: #### [id number] ####[facility] LAB (BEAKER)[address] [place] [address] Sodium [Moles/Vol]137 mmol/NSjdxuy240-522SpiyntyddaKeenan Private Hospital Comment on above:Performed By: #### [id number] ####[facility] ([facility])[address] [place] [address]Xasi nitrogen [Mass/Vol]21 mg/dLNormal7-25 [facility] HospitalComment on above:Performed By: #### [id number] ####[facility] ([facility])[address] [place] [address]BQCH NITROGEN/CREATININE (MASS RATIO) IN SER/PLAS17.8NormalUniversMarymount HospitalComment on above:Performed By: #### [id number] ####[facility] ([facility])[address] [place] [address]AEEVKAF, IONIZEDon 36-66-7891LXOSLZA IONIZED (MMOL/L) IN BLOOD1.14 mmol/LLow1.15-1.33UnKeenan Private HospitalComment on above:Performed By: #### [id number] ####[facility] RESPIRATORY [id number] [place] [address] USACALCIUM IONIZED (MMOL/L) IN BLOOD1.19 mmol/L Normal1.15-1.33UnKeenan Private HospitalComment on above:Performed By: #### CALCIUM, IONIZED ####[facility] RESPIRATORY [id number] [place] [address] USACBCon 21-57-9719Cadtqtsrhct distribution width (RBC) [Ratio]16.1 %High 11.5-15.0UnKeenan Private HospitalComment on above:Performed By: #### [id number] ####[facility] (BE[facility]ER)[address] [place] [address] ERYTHROCYTE MEAN CORPUSCULAR HEMOGLOBIN CONCENTRATION (G/DL) BY AXMPRFLEO42.2 g/iJDuvtxx36.0-35.0UnKeenan Private HospitalComment on above:Performed By: #### [id number] ####[facility] ([facility])[address] [place] [address]Rvnocyceld (Bld) [Volume fraction]30.7 %Low36.0-48.0UnKeenan Private HospitalComment on above:Performed By: #### [id number] ####[facility] ([facility])[address] [place] [address]Msesrojmku (Bld) [Mass/Vol]9.9 g/dLLow 12.0-15.0UnKeenan Private HospitalComment on above:Performed By: #### [id number] ####[facility] ([facility])[address] [place] [address]UFA (RBC) [Entitic mass]28.6 dvFpuiux03.0-33.0UnKeenan Private HospitalComment on above:Performed By: #### [id number] ####[facility] ([facility])[address] [place] [address]JQS (RBC) [Entitic vol]88.7 qSRhcnly91.0-98.0UnKeenan Private HospitalComment on above:Performed By: #### [id number] ####[facility] ([facility])[address] [place] [address]VQDHQTUNW (10*3/UL) IN BLOOD AUTOMATED [id number] 10*3/dPRzz326-442NuofzkkizmKeenan Private Hospital Comment on above:Performed By: #### [id number] ####[facility] ([facility])[address] [place] [address]PTH (Bld) [#/Vol]3.46 10*6/uLLow3.80-5.00UnKeenan Private HospitalComment on above:Performed By: #### [id number] ####[facility] ([facility])[address] [place] [address]NLQ (Bld) [#/Vol]13.37 10*3/uLHigh4.00-10.60UnKeenan Private HospitalComment on above: Performed By: #### [id number] ####[facility] ([facility])[address] [place] [address]GVL WITH AUTO DIFFERENTIALon 47-87-9215Ytrxjxagi (Bld) [#/Vol]0.02 10*3/uLNormal0.00-0.20UnKeenan Private HospitalComment on above:Performed By: #### [id number] ####[facility] ([facility])[address] [place], [place] [address]Loaebrtlc/100 WBC (Bld)0.2 %Normal0.0-1.0UnKeenan Private HospitalComment on above:Performed By: #### [id number] ####[facility] ([facility])[address] [place], [place] [address]Jxteouqaxve (Bld) [#/Vol]0.00 10*3/uL Normal0.00-0.50UnKeenan Private HospitalComment on above:Performed By: #### [id number] ####[facility] ([facility])[address] [place] [address] Eosinophils/100 WBC (Bld)0.0 %Normal0.0-6.0UnKeenan Private Hospital Comment on above:Performed By: #### [id number] ####[facility] ([facility])[address] [place], [place] [address]Sckpzvbjyaq distribution width (RBC) [Ratio]16.1 % High11.5-15.0UnKeenan Private HospitalComment on above:Performed By: #### [id number] ####[facility] ([facility])[address] [place] [address] ERYTHROCYTE MEAN CORPUSCULAR HEMOGLOBIN CONCENTRATION (G/DL) BY JSULNBHAV90.0 g/qCIkbxcw30.0-35.0UnKeenan Private HospitalComment on above:Performed By: #### [id number] ####[facility] ([facility])[address] [place], [place] [address]Ztixcxlnkb (Bld) [Volume fraction]32.5 %Low36.0-48.0UnKeenan Private HospitalComment on above:Performed By: #### [id number] ####[facility] (BE[facility]ER)[address] [place], [place] [address]Ilmjbwkiav (Bld) [Mass/Vol]10.4 g/dL Low12.0-15.0UnKeenan Private HospitalComment on above:Performed By: #### [id number] ####[facility] ([facility])[address] [place] [address] Immature granulocytes (Bld) [#/Vol]0.05 10*3/uLNormal0.00-0.20UnKeenan Private HospitalComment on above:Performed By: #### [id number] ####[facility] ([facility])[address] [place], [place] [address]Odsqicwx granulocytes/100 WBC (Bld)0.4 %Normal0.0-1.0UnKeenan Private HospitalComment on above: Performed By: #### [id number] ####[facility] ([facility])[address] [place], [place] [address]Qkmfvhidptf (Bld) [#/Vol]0.98 10*3/uLLow1.20-4.00UnKeenan Private HospitalComment on above:Performed By: #### [id number] ####[facility] ([facility])[address] [place], [place] [address]Ciwlvjpzody/100 WBC (Bld) 7.8 %Low20.0-45.0UnKeenan Private HospitalComment on above:Performed By: #### [id number] ####[facility] (BE[facility]ER)[address] [place], [place] [address]VRY (RBC) [Entitic mass]28.3 ebVkebcz70.0-33.0UnKeenan Private HospitalComment on above:Performed By: #### [id number] ####[facility] ([facility])[address] [facility] [place] [address]MAX (RBC) [Entitic vol]88.3 fLNormal 82.0-98.0UnKeenan Private HospitalComment on above:Performed By: #### [id number] ####[facility] ([facility])[address] [place] [address] Monocytes (Bld) [#/Vol]0.54 10*3/uLNormal0.10-1.00UnKeenan Private HospitalComment on above:Performed By: #### [id number] ####[facility] ([facility])[address] [facility], [place] [address]Ufhbrupmd/100 WBC (Bld)4.3 %Low 5.0-12.0UnKeenan Private HospitalComment on above:Performed By: #### [id number] ####[facility] ([facility])[address] [place] [address] Neutrophils (Bld) [#/Vol]11.04 10*3/uLHigh1.60-7.60UnKeenan Private HospitalComment on above:Performed By: #### [id number] ####[facility] ([facility])[address], [place] [address]Sawostlxjlk/100 WBC (Bld)87.3 %High 40.0-72.0UnKeenan Private HospitalComment on above:Performed By: #### [id number] ####[facility] ([facility])[address] [place], [place] [address]ZLWZ (PER 100 WBCS) BY AUTOMATED COUNT0.0 %Llatxm6PzrfemnpjxKeenan Private Hospital Comment on above:Performed By: #### [id number] ####[facility] ([facility])[address], [place] [address]VFTSMVCOH (10*3/UL) IN BLOOD AUTOMATED [id number] 10*3/hMSycuep094-596PnrjmikldxKeenan Private HospitalComment on above: Performed By: #### [id number] ####[facility] (BEAKER)[address] [place] [address]CQL (Bld) [#/Vol]3.68 10*6/uLLow3.80-5.00UnKeenan Private HospitalComment on above:Performed By: #### [id number] ####[facility] ([facility])[address] [place] [address]GKA (Bld) [#/Vol]12.63 10*3/uLHigh 4.00-10.60UnKeenan Private HospitalComment on above:Performed By: #### [id number] ####[facility] ([facility])[address] [place] [address] Basophils (Bld) [#/Vol]0.01 10*3/uLNormal0.00-0.20UnKeenan Private HospitalComment on above:Performed By: #### [id number] ####[facility] (BE[facility]ER)[address] [facility] [place], [place] [address]Nwqhdjeyv/100 WBC (Bld)0.1 %Normal 0.0-1.0UnKeenan Private HospitalComment on above:Performed By: #### [id number] ####[facility] (BEAKER)[address] [place] [address] Eosinophils (Bld) [#/Vol]0.00 10*3/uLNormal0.00-0.50UnKeenan Private HospitalComment on above:Performed By: #### [id number] ####[facility] (BE[facility]ER)[address] [facility] [place] [address]Rycmprtednk/100 WBC (Bld)0.0 %Normal 0.0-6.0UnKeenan Private HospitalComment on above:Performed By: #### [id number] ####[facility] (BEAKER)[address] [place] [address] Erythrocyte distribution width (RBC) [Ratio]16.4 %High11.5-15.0UnKeenan Private HospitalComment on above:Performed By: #### [id number] ####[facility] (BEAKER)[address] [place], [place] [address]YJNCISSVJOK MEAN CORPUSCULAR HEMOGLOBIN CONCENTRATION (G/DL) BY XTBXHWQID81.6 g/dLLow32.0-35.0 [facility] HospitalComment on above:Performed By: #### [id number] ####[facility] ([facility])[address] [place], [place] [address]Cbamdyyven (Bld) [Volume fraction]31.0 %Low36.0-48.0UnKeenan Private HospitalComment on above:Performed By: #### [id number] ####[facility] ([facility])[address] [place], [place] [address]Kekisxurgu (Bld) [Mass/Vol]9.8 g/dLLow12.0-15.0UnKeenan Private HospitalComment on above:Performed By: #### [id number] ####[facility] (BE[facility]ER)[address] [place], [place] [address]Tbcpwtno granulocytes (Bld) [#/Vol]0.05 10*3/uLNormal0.00-0.20UnKe[facility] Private Hospital Comment on above:Performed By: #### [id number] ####[facility] (BE[facility]ER)[address] [place], [place] [address]Mjbsbfrg granulocytes/100 WBC (Bld)0.5 %Normal 0.0-1.0UnKeenan Private HospitalComment on above:Performed By: #### [id number] ####[facility] (BE[facility]ER)[address] [place] [address] Lymphocytes (Bld) [#/Vol]0.58 10*3/uLLow1.20-4.00UnKeenan Private HospitalComment on above:Performed By: #### [id number] ####[facility] (BE[facility]ER)[address] [place], [place] [address]Yvpbcmieabg/100 WBC (Bld)6.3 %Low 20.0-45.0UnKeenan Private HospitalComment on above:Performed By: #### [id number] ####[facility] (BE[facility]ER)[address] [place] [address]NRD (RBC) [Entitic mass]28.2 qvDlwxsp76.0-33.0UnKe[facility]an Private Hospital Comment on above:Performed By: #### [id number] ####[facility] ([facility])[address] [place], [place] [address]RBO (RBC) [Entitic vol]89.3 sSBtzxvr96.0-98.0 [facility] HospitalComment on above:Performed By: #### [id number] ####[facility] ([facility])[address] [place], [place] [address]Rkvnbeetw (Bld) [#/Vol]0.21 10*3/uLNormal0.10-1.00UnKeenan Private HospitalComment on above:Performed By: #### [id number] ####[facility] ([facility])[address] [place], [place] [address]Hugdpqrks/100 WBC (Bld)2.3 %Low5.0-12.0UnKeenan Private HospitalComment on above:Performed By: #### [id number] ####[facility] (BE[facility]ER)[address] [place], [place] [address]Erigggtfpwp (Bld) [#/Vol]8.38 10*3/uL High1.60-7.60UnKeenan Private HospitalComment on above:Performed By: #### [id number] ####[facility] (BE[facility]ER)[address] [place] [address] Neutrophils/100 WBC (Bld)90.8 %High40.0-72.0UnKe[facility] Private Hospital Comment on above:Performed By: #### [id number] ####[facility] (BE[facility]ER)[address] [place], [place] [address]RGEH (PER 100 WBCS) BY AUTOMATED COUNT0.0 %Normal0 [facility] HospitalComment on above:Performed By: #### [id number] ####[facility] ([facility])[address] [place] [address]GUVJUPHIS (10*3/UL) IN BLOOD AUTOMATED [id number] 10*3/lNOpj361-936CrqclprhocKeenan Private HospitalComment on above:Performed By: #### [id number] ####[facility] ([facility])[address] [place] [address]QZC (Bld) [#/Vol]3.47 10*6/uLLow 3.80-5.00UnKeenan Private HospitalComment on above:Performed By: #### [id number] ####[facility] ([facility])[address] [place] [address]XNQ (Bld) [#/Vol]9.23 10*3/uLNormal4.00-10.60Un[facility] Private Hospital Comment on above:Performed By: #### [id number] ####[facility] ([facility])[address] [place], [place] [address]AGMDGUOLBCKBM METABOLIC PANELon 78-09-9158Sutzoki [Mass/Vol]3.1 g/dLLow3.5-5.7UnKeenan Private HospitalComment on above: Performed By: #### [id number] ####[facility] ([facility])[address] [place], [place] [address]VWX [Catalytic activity/Vol]60 U/HVheggo13-672BhgqqttgjjKeenan Private HospitalComment on above:Performed By: #### [id number] ####[facility] ([facility])[address] [place], [place] [address]TYF [Catalytic activity/Vol]4 U/LLow 7-52UnKeenan Private HospitalComment on above:Performed By: #### [id number] ####[facility] ([facility])[address] [place], [place] [address]Orzmj gap [Moles/Vol]9 mmol/LNormal7-20[facility]enas Medical CenterComment on above:Performed By: #### [id number] ####[facility] (BEAKER)[address] [place] [address]NFW [Catalytic activity/Vol]11 U/KCbv72-89KilcowmmvoKeenan Private HospitalComment on above:Performed By: #### [id number] ####[facility] ([facility])[address] [place] [address]Suiftheqr [Mass/Vol]0.4 mg/dL Normal0.3-1.0UnKeenan Private HospitalComment on above:Performed By: #### [id number] ####[facility] ([facility])[address] [place] [address] Calcium [Mass/Vol]8.0 mg/dLLow8.6-10.3UnKeenan Private HospitalComment on above:Performed By: #### [id number] ####[facility] ([facility])[address] [place] [address]Niculamb [Moles/Vol]108 mmol/RSvux84-272FsbfqkodknKeenan Private HospitalComment on above:Performed By: #### [id number] ####[facility] ([facility])[address] [place] [address]JC1 [Moles/Vol]25 mmol/RLbxblt21-07 [facility] HospitalComment on above:Performed By: #### [id number] ####[facility] ([facility])[address] [place] [address]Usakwfgcpa [Mass/Vol]1.06 mg/dLNormal0.60-1.20UnKeenan Private HospitalComment on above:Performed By: #### [id number] ####[facility] ([facility])[address] [place] [address]RZLZVNLVMC FILTRATION RATE ML/MIN/1.73 SQ M.CMEGQXPTB04.1 mL/min/1.73m*2Low>60.0UnKeenan Private HospitalComment on above:Result Comment: [facility]???s estimated glomerular filtration rate (eGFR) will [...] anyone group of individuals.Performed By: #### [id number] ####[facility] ([facility])[address] [place], [place] [address]Kfkonmo [Mass/Vol]133 mg/tXInpg93-482TnfdbnkgwwKeenan Private HospitalComment on above:Performed By: #### [id number] ####[facility] ([facility])[address] [place], [place] [address]Lduszwano [Moles/Vol]4.2 mmol/L Normal3.5-5.1UnKeenan Private HospitalComment on above:Performed By: #### [id number] ####[facility] ([facility])[address] [facility] [address] Protein [Mass/Vol]5.2 g/dLLow6.0-8.3UnKeenan Private HospitalComment on above:Performed By: #### [id number] ####[facility] ([facility])[address] [facility] [place], [place] [address]Iifjtu [Moles/Vol]138 mmol/FCdikxg871-357CdchvaegpjKeenan Private HospitalComment on above:Performed By: #### [id number] ####[facility] ([facility])[address] [place], [place] [address]Vnnp nitrogen [Mass/Vol]19 mg/dLNormal 7-25UnKeenan Private HospitalComment on above:Performed By: #### [id number] ####[facility] ([facility])[address] [place], [place] [address]NSCE NITROGEN/CREATININE (MASS RATIO) IN SER/PLAS17.9NormalUniversMarymount HospitalComment on above:Performed By: #### [id number] ####[facility] ([facility])[address] [place], [place] [address]Beilgnb [Mass/Vol]3.3 g/dLLow3.5-5.7 [facility] HospitalComment on above:Performed By: #### [id number] ####[facility] ([facility])[address] [place], [place] [address]FMA [Catalytic activity/Vol]67 U/CHnagyo64-733RkqmmmrjdfKeenan Private HospitalComment on above:Performed By: #### [id number] ####[facility] ([facility])[address] [place], [place] [address]ONG [Catalytic activity/Vol]7 U/LNormal7-52UnKeenan Private HospitalComment on above:Performed By: #### [id number] ####[facility] ([facility])[address] [place], [place] [address]Zxycx gap [Moles/Vol]11 mmol/L Normal7-20UnKeenan Private HospitalComment on above:Performed By: #### [id number] ####[facility] ([facility])[address] [place], [place] [address]FXN [Catalytic activity/Vol]14 U/LNnlxfs72-13FywoivqxgbKeenan Private Hospital Comment on above:Performed By: #### [id number] ####[facility] ([facility])[address] [place], [place] [address]Vmlxxqpvj [Mass/Vol]0.4 mg/dLNormal0.3-1.0 [facility] HospitalComment on above:Performed By: #### [id number] ####[facility] ([facility])[address] [place], [place] [address]Vaunwsd [Mass/Vol]8.4 mg/dLLow8.6-10.3UnKeenan Private HospitalComment on above:Performed By: #### [id number] ####[facility] ([facility])[address] [place], [place] [address]Sjsqghua [Moles/Vol]108 mmol/DPqsa18-301XodhwxbawjKeenan Private HospitalComment on above:Performed By: #### [id number] ####[facility] ([facility])[address] [place] [address]EI6 [Moles/Vol]25 mmol/GZasvaq29-34 [facility] HospitalComment on above:Performed By: #### [id number] ####[facility] ([facility])[address] [place] [address]Breotdcngh [Mass/Vol]1.24 mg/dLHigh0.60-1.20UnKeenan Private HospitalComment on above:Performed By: #### [id number] ####[facility] ([facility])[address] [place], [place] [address]HSCBVIEIDX FILTRATION RATE ML/MIN/1.73 SQ M.AMEJKQTLI36.0 mL/min/1.73m*2Low>60.0UnKeenan Private HospitalComment on above:Result Comment: [facility]???s estimated glomerular filtration rate (eGFR) will [...] anyone group of individuals.Performed By: #### [id number] ####[facility] ([facility])[address] [place] [address]Lzodjlf [Mass/Vol]146 mg/qXDnpo17-650VeyobkuempKeenan Private HospitalComment on above:Performed By: #### [id number] ####[facility] ([facility])[address] [place], [place] [address]Girlhaoza [Moles/Vol]4.1 mmol/L Normal3.5-5.1UnKeenan Private HospitalComment on above:Performed By: #### [id number] ####[facility] ([facility])[address] [place] [address] Protein [Mass/Vol]5.7 g/dLLow6.0-8.3UnKeenan Private HospitalComment on above:Performed By: #### [id number] ####[facility] ([facility])[address] [place], [place] [address]Tlldpq [Moles/Vol]140 mmol/SLbmcqr024-636CevgbchvbbKeenan Private HospitalComment on above:Performed By: #### [id number] ####[facility] ([facility])[address] [place], [place] [address]Pldw nitrogen [Mass/Vol]21 mg/dLNormal 7-25UnKeenan Private HospitalComment on above:Performed By: #### [id number] ####[facility] ([facility])[address] [place], [place] [address]QQBN NITROGEN/CREATININE (MASS RATIO) IN SER/PLAS16.9NormalUniversMarymount HospitalComment on above:Performed By: #### [id number] ####[facility] ([facility])[address] [place], [place] [address]UWP ABDOMEN W IV CONTRASTon 01-29-2024 CTA ABDOMEN W IV CONTRASTInvalid Interpretation CodeUnKeenan Private HospitalCTA CHEST W IV CONTRASTon [id number] CHEST W IV CONTRASTNoal [facility] HospitalLACTIC ACID WITH 4 HOUR REFLEXon 01-29-2024 LACTATE (MMOL/L) IN SER/PLAS0.9 mmol/LNormal0.5-2.2UnKeenan Private HospitalComment on above:Performed By: #### [id number] ####[facility] ([facility])[address] [place], [place] [address]UCDZOBJ (MMOL/L) IN SER/PLAS1.6 mmol/L Normal0.5-2.2UnKeenan Private HospitalComment on above:Performed By: #### [id number] ####[facility] ([facility])[address] [place] [address] LIPASEon [id number] (U/L) IN SER/PLAS16 U/YOkpyca96-71GsbrvwwhejKeenan Private HospitalComment on above:Performed By: #### [id number] ####[facility] ([facility])[address] [place], [place] [address]GLDOKSVFWhj 08-97-5206Tmngwhtqs [Mass/Vol]2.4 mg/dLNormal1.9-2.7UnKeenan Private HospitalComment on above:Performed By: #### [id number] ####[facility] ([facility])[address] [place], [place] [address]Txvtqzpcg [Mass/Vol]2.5 mg/dLNormal1.9-2.7UnKeenan Private HospitalComment on above:Performed By: #### [id number] ####[facility] ([facility])[address] [place], [place] [address]Hakneqhjg [Mass/Vol]2.7 mg/dLNormal1.9-2.7UnKeenan Private HospitalComment on above:Performed By: #### [id number] ####[facility] ([facility])[address] [place] [address] PHOSPHORUSon [id number] [Mass/Vol]3.1 mg/dLNormal2.5-5.0UnKeenan Private HospitalComment on above:Performed By: #### [id number] ####[facility] ([facility])[address] [place], [place] [address]Lfyeudpdj [Mass/Vol]3.3 mg/dLNormal2.5-5.0UnKeenan Private HospitalComment on above:Performed By: #### [id number] ####[facility] ([facility])[address] [place] [address] Magnesium [Mass/Vol]4.2 mg/dLNormal2.5-5.0UnKeenan Private Hospital Comment on above:Performed By: #### [id number] ####[facility] ([facility])[address] [place], [place] [address]GPAT GLUCOSE METER UNSOLICITED RESULTSon 01-29-2024 Glucose [Mass/Vol]127 mg/vVPnpp61-947NtztldwuwcKeenan Private HospitalComment on above:Order Comment: Waived Testing in the ED is performed under the ED CLIA certificate #[id number].Result Comment: [id number] By: #### [id number] ####[facility] ([facility])[address] [place], [place] [address]Rpvhkxt [Mass/Vol]157 mg/vDHufm20-652OyixamkpkqKeenan Private HospitalComment on above:Order Comment: Waived Testing in the ED is performed under the ED CLIA certificate #[id number].Result Comment: [id number] By: #### [id number] ####[facility] ([facility])[address] [place], [place] [address]Lijkedw [Mass/Vol]177 mg/kFMtng83-558YgsmohdiyiKeenan Private HospitalComment on above:Order Comment: Waived Testing in the ED is performed under the ED CLIA certificate #[id number].Result Comment: [id number] By: #### [id number] ####[facility] ([facility])[address] [place], [place] [address]Lwubqwc [Mass/Vol]192 mg/vSFzaj04-751MaoglsoafcKeenan Private HospitalComment on above:Order Comment: Waived Testing in the ED is performed under the ED CLIA certificate #[id number].Result Comment: [id number] By: #### [id number] ####[facility] ([facility])[address] [place], [place] [address]XUQOAMJZN, WHOLE BLOODon 63-46-1097Flqysfeio [Moles/Vol]4.0 mmol/LNormal3.5-5.1UnKeenan Private HospitalComment on above:Performed By: #### POTASSIUM, WHOLE BLOOD ####[facility] RESPIRATORY [id number] [place] [address] USASODIUM, WHOLE BLOODon 57-48-6242NECDFG, WHOLE XEGQO746Roxkcc239-354KgtfnruzdgKeenan Private HospitalComment on above:Performed By: #### SODIUM, WHOLE BLOOD ####[facility] RESPIRATORY [id number] [place] [address] USATROPONIN Ion 01-29-2024 Troponin I.cardiac [Mass/Vol]0.02 ng/mLNormal0.00-0.04UnKeenan Private HospitalComment on above:Performed By: #### [id number] ####[facility] ([facility])[address] [place], [place] [address]Ooapryma I.cardiac [Mass/Vol]0.07 ng/mLHigh0.00-0.04UnKeenan Private HospitalComment on above:Performed By: #### [id number] ####[facility] ([facility])[address] [place] [address] Troponin I.cardiac [Mass/Vol]0.03 ng/mLNormal0.00-0.04UnKeenan Private HospitalComment on above:Performed By: #### [id number] ####[facility] ([facility])[address] [place], [place] [id number] [id number] [facility]30NormalUniversity [facility] Medical CenterANESon 83-76-7672ZNAPXdnjbzBxykfvfswr [facility] CenterANESNormalUniversMarymount HospitalARTERIAL BLOOD GAS WITH CO-OXIMETRYon 73-88-6932Aqgp excess Calc (Bld) [Moles/Vol]-2.0000 mmol/LNormal-2.0-3.0UnKeenan Private HospitalComment on above:Performed By: #### [id number] ####[facility] RESPIRATORY [id number] [place] [address] USACARBOXYHEMOGLOBIN/HEMOGLOBIN TOTAL % IN BLOOD1.9 %Normal0.0-3.0UnKeenan Private HospitalComment on above: Performed By: #### [id number] ####[facility] RESPIRATORY [id number] [place] [address] USACO2 (Bld) [Partial pressure]52 mm[Hg]Htjv13-54PrbnzybxkbKeenan Private HospitalComment on above:Performed By: #### [id number] ####[facility] RESPIRATORY [id number] [place] [address] USADEOXYGENATED HEMOGLOBIN IN BLOOD0.9 %Low1-5UnKeenan Private HospitalComment on above:Performed By: #### [id number] ####[facility] RESPIRATORY [id number] [place] [address] USAHCO3 (Bld) [Moles/Vol]25.0 mmol/BCsfpsj79.0-28.0UnKeenan Private Hospital Comment on above:Performed By: #### [id number] ####[facility] RESPIRATORY [id number] [place] [address] USAHemoglobin (Bld) [Mass/Vol]11.1 g/dLLow 11.7-17.4UnKeenan Private HospitalComment on above:Performed By: #### [id number] ####[facility] RESPIRATORY [id number] [place] [address] USALPM3 NormalUnKeenan Private HospitalComment on above:Performed By: #### [id number] ####[facility] RESPIRATORY [id number] [place] [address] [place] METHEMOGLOBIN/100 IN BLOOD0.9 %Normal0.0-1.5UnKeenan Private Hospital Comment on above:Performed By: #### [id number] ####[facility] RESPIRATORY [id number] [place] [address] USAOxygen (Bld) [Partial pressure]103 mm[Hg]High 83-100UnKeenan Private HospitalComment on above:Performed By: #### [id number] ####[facility] RESPIRATORY [id number] [place] [address] USAOXYGEN SATURATION (%) IN ARTERIAL BLOOD99.1 %High94.0-98.0UnKeenan Private HospitalComment on above:Performed By: #### [id number] ####[facility] RESPIRATORY [id number] [place] [address] USAOXYGENATED HEMOGLOBIN IN BLOOD96.3 %High90.0-95.0UnKeenan Private HospitalComment on above:Performed By: #### [id number] ####[facility] RESPIRATORY [id number] [place] [address] [place] pH (Bld)7.29 [pH]Low7.35-7.45UnKeenan Private HospitalComment on above:Performed By: #### [id number] ####[facility] RESPIRATORY [id number] [place] [address] USASOURCE OF OXYGENNasal cannulaNormalUniversity [facility] Medical CenterComment on above:Performed By: #### [id number] ####[facility] RESPIRATORY [id number] [place] [address] USAB-TYPE NATRIURETIC PEPTIDEon 07-98-9421Agkweuqsagi peptide B (Bld) [Mass/Vol]869 pg/mLHigh0-100UnKeenan Private HospitalComment on above:Performed By: #### [id number] ####[facility] LAB ([facility])[address] [place], [place] [address]LRIWR METABOLIC PANELon 91-39-4717Xfxhx gap [Moles/Vol]11 mmol/LNormal7-20UnKeenan Private HospitalComment on above:Performed By: #### [id number] ####[facility] HOSPITAL LAB (BEAKER)[address] [place], [place] [address]Lbsblmu [Mass/Vol]8.2 mg/dLLow8.6-10.3 [facility] HospitalComment on above:Performed By: #### [id number] ####[facility]OSP[facility] LAB (BEAKER)[address] [place], [place] [address]Cpyxbfac [Moles/Vol]106 mmol/ZGsmgsg76-187QlkaeuwovjKeenan Private HospitalComment on above:Performed By: #### [id number] ####[facility]OSP[facility] LAB (BEAKER)[address] [place], [place] [address]BL5 [Moles/Vol]26 mmol/LQeinwf86-83AfdlttbfjwKeenan Private HospitalComment on above:Performed By: #### [id number] ####[facility] (BE[facility]ER)[address] [place], [place] [address]Tzhfydcmdv [Mass/Vol]1.17 mg/dLNormal 0.60-1.20UnKeenan Private HospitalComment on above:Performed By: #### [id number] ####[facility] ([facility])[address] [place] [address]BQWBTKGUDN FILTRATION RATE ML/MIN/1.73 SQ M.CDBKEPCEX60.2 mL/min/1.73m*2Low>60.0UnKeenan Private HospitalComment on above:Result Comment: [facility]???s estimated glomerular filtration rate (eGFR) will [...] group of individuals. Performed By: #### [id number] ####[facility] ([facility])[address] [place] [address]Vudsimb [Mass/Vol]161 mg/aQAluu76-883OpahljacyoKeenan Private HospitalComment on above:Performed By: #### LAB15 ####[facility] ([facility])[address] [place] [address]Vvmexydqg [Moles/Vol]4.1 mmol/LNormal 3.5-5.1UnKeenan Private HospitalComment on above:Performed By: #### [id number] ####[facility] ([facility])[address] [place] [address]Asseeh [Moles/Vol]139 mmol/QGgzmkw815-957JyxyqofshkKeenan Private HospitalComment on above:Performed By: #### [id number] ####[facility] ([facility])[address] [place] [address]Aboa nitrogen [Mass/Vol]20 mg/dLNormal7-25UnKeenan Private HospitalComment on above:Performed By: #### [id number] ####[facility] ([facility])[address] [place] [address]RLLM NITROGEN/CREATININE (MASS RATIO) IN SER/PLAS17.1NormalUnKeenan Private HospitalComment on above: Performed By: #### [id number] ####[facility] ([facility])[address] [place] [address]Dqujs gap [Moles/Vol]8 mmol/LNormal7-20UnKeenan Private HospitalComment on above:Performed By: #### [id number] ####[facility] ([facility])[address] [place] [address]Wniyjkz [Mass/Vol]8.8 mg/dLNormal 8.6-10.3UnKeenan Private HospitalComment on above:Performed By: #### LAB15 ####[facility] ([facility])[address] [place] [address]Chszcrus [Moles/Vol]105 mmol/JRvsucr85-247XhpueonwufKeenan Private HospitalComment on above:Performed By: #### LAB15 ####[facility] ([facility])[address] [place] [address]JY2 [Moles/Vol]29 mmol/GFlello93-66RnqfbhgpnwKeenan Private HospitalComment on above:Performed By: #### LAB15 ####[facility] ([facility])[address] [place], [place] [address]Jniejdpqdv [Mass/Vol]1.19 mg/dLNormal 0.60-1.20UnKeenan Private HospitalComment on above:Performed By: #### LAB15 ####[facility] ([facility])[address] [place], [place] [address]PSMAPPXZBW FILTRATION RATE ML/MIN/1.73 SQ M.JPNQFMVZG16.2 mL/min/1.73m*2Low>60.0UnKeenan Private HospitalComment on above:Result Comment: [facility]???s estimated glomerular filtration rate (eGFR) will [...] group of individuals. Performed By: #### [id number] ####[facility] ([facility])[address] [place], [place] [address]Blcsxxf [Mass/Vol]97 mg/nZFsgyhc26-298OlnoxfvanvKeenan Private HospitalComment on above:Performed By: #### LAB15 ####[facility] ([facility])[address] [place], [place] [address]Wutdsobzf [Moles/Vol]3.7 mmol/LNormal 3.5-5.1UnKeenan Private HospitalComment on above:Performed By: #### [id number] ####[facility] ([facility])[address] [place], [place] [address]Lxgqfo [Moles/Vol]138 mmol/KDpzkhq931-048GdtjthtbhqKeenan Private HospitalComment on above:Performed By: #### LAB15 ####[facility] LAB (BEAKER)[address] [place], [place] [address]Jtox nitrogen [Mass/Vol]22 mg/dLNormal7-25UnKeenan Private HospitalComment on above:Performed By: #### [id number] ####[facility] ([facility])[address] [place], [place] [address]PCYG NITROGEN/CREATININE (MASS RATIO) IN SER/PLAS18.5NormalUniversMarymount HospitalComment on above: Performed By: #### [id number] ####[facility] LAB (BEAKER)[address] [place], [place] [address]YHNXLZK, IONIZEDon 85-50-5095SJYHIYK IONIZED (MMOL/L) IN BLOOD1.17 mmol/LNormal1.15-1.33UnKeenan Private HospitalComment on above: Performed By: #### CALCIUM, IONIZED ####[facility] RESPIRATORY [id number] [place] [address] USACBC WITH AUTO DIFFERENTIALon 92-41-5327Cvoztcoum (Bld) [#/Vol]0.02 10*3/uLNormal0.00-0.20UnKeenan Private HospitalComment on above:Performed By: #### [id number] ####[facility] ([facility])[address] [place], [place] [address]Eyqwcqtok/100 WBC (Bld)0.2 %Normal0.0-1.0UnKeenan Private HospitalComment on above:Performed By: #### [id number] ####[facility] ([facility])[address] [facility] [place] [address]Byupmerwjfa (Bld) [#/Vol]0.02 10*3/uL Normal0.00-0.50UnKeenan Private HospitalComment on above:Performed By: #### [id number] ####[facility] ([facility])[address] [place] [address] Eosinophils/100 WBC (Bld)0.2 %Normal0.0-6.0UnKeenan Private Hospital Comment on above:Performed By: #### [id number] ####[facility] ([facility])[address] [place] [place] [address]Qqoiyxbsjsd distribution width (RBC) [Ratio]16.4 % High11.5-15.0UnKeenan Private HospitalComment on above:Performed By: #### [id number] ####[facility] ([facility])[address] [place] [address] ERYTHROCYTE MEAN CORPUSCULAR HEMOGLOBIN CONCENTRATION (G/DL) BY AVNNIHRPN03.3 g/dLLow32.0-35.0UnKeenan Private HospitalComment on above:Performed By: #### [id number] ####[facility] ([facility])[address] [place], [place] [address]Ttymhxkgth (Bld) [Volume fraction]34.2 %Low36.0-48.0UnKeenan Private HospitalComment on above:Performed By: #### [id number] ####[facility] (BEAKER)[address] [place] [place] [address]Fijwybjbea (Bld) [Mass/Vol]10.7 g/dL Low12.0-15.0UnKeenan Private HospitalComment on above:Performed By: #### [id number] ####[facility] LAB (BEAKER)[address] [place] [address] Immature granulocytes (Bld) [#/Vol]0.09 10*3/uLNormal0.00-0.20UnKeenan Private HospitalComment on above:Performed By: #### [id number] ####[facility] ([facility])[address] [place] [address]Tzmvhfqy granulocytes/100 WBC (Bld)0.9 %Normal0.0-1.0UnKeenan Private HospitalComment on above: Performed By: #### [id number] ####[facility] ([facility])[address] [place] [address]Kxfvnrvmuem (Bld) [#/Vol]1.01 10*3/uLLow1.20-4.00UnKeenan Private HospitalComment on above:Performed By: #### [id number] ####[facility] ([facility])[address] [place] [address]Xrwmtuytymh/100 WBC (Bld) 9.6 %Low20.0-45.0UnKeenan Private HospitalComment on above:Performed By: #### [id number] ####[facility] ([facility])[address] [place], [place] [address]FCL (RBC) [Entitic mass]28.0 dqBatjzm33.0-33.0UnKeenan Private HospitalComment on above:Performed By: #### [id number] ####[facility] (BEAKER)[address] [place] [address]NRB (RBC) [Entitic vol]89.5 fLNormal 82.0-98.0UnKeenan Private HospitalComment on above:Performed By: #### [id number] ####[facility] ([facility] [place] [address] Monocytes (Bld) [#/Vol]0.18 10*3/uLNormal0.10-1.00UnKeenan Private HospitalComment on above:Performed By: #### [id number] ####[facility] ([facility])[address] [place] [address]Ojkxcurac/100 WBC (Bld)1.7 %Low 5.0-12.0UnKeenan Private HospitalComment on above:Performed By: #### [id number] ####[facility] ([facility])[address] [place] [address] Neutrophils (Bld) [#/Vol]9.15 10*3/uLHigh1.60-7.60UnKeenan Private HospitalComment on above:Performed By: #### [id number] ####[facility] ([facility])[address] [place] [address]Lwpkklamaoe/100 WBC (Bld)87.4 %High 40.0-72.0UnKeenan Private HospitalComment on above:Performed By: #### [id number] ####[facility] ([facility])[address] [place] [address]FLDW (PER 100 WBCS) BY AUTOMATED COUNT0.0 %Hqzlie3JpdnakrhhvKeenan Private Hospital Comment on above:Performed By: #### [id number] ####[facility] ([facility])[address] [place] [address]IHOCFVHUY (10*3/UL) IN BLOOD AUTOMATED QITZE450 10*3/mWJedtie256-727DhznumavwqKeenan Private HospitalComment on above: Performed By: #### [id number] ####[facility] ([facility])[address] [place] [address]XCC (Bld) [#/Vol]3.82 10*6/uLNormal3.80-5.00UnKeenan Private HospitalComment on above:Performed By: #### [id number] ####[facility] ([facility])[address] [place], [place] [address]STC (Bld) [#/Vol]10.47 10*3/uLNormal4.00-10.60UnKeenan Private HospitalComment on above: Performed By: #### [id number] ####[facility] ([facility])[address] [place], [place] [address]Xawhfmjfk (Bld) [#/Vol]0.04 10*3/uLNormal0.00-0.20UnKeenan Private HospitalComment on above:Performed By: #### [id number] ####[facility] ([facility])[address] [place], [place] [address]Ytxnpnpme/100 WBC (Bld) 0.5 %Normal0.0-1.0UnKeenan Private HospitalComment on above:Performed By: #### [id number] ####[facility] ([facility])[address] [place], [place] [address]Isgihodetfx (Bld) [#/Vol]0.21 10*3/uLNormal0.00-0.50UnKeenan Private HospitalComment on above:Performed By: #### [id number] ####[facility] ([facility])[address] [place], [place] [address]Mxmcgzpevuu/100 WBC (Bld)2.8 %Normal 0.0-6.0UnKeenan Private HospitalComment on above:Performed By: #### [id number] ####[facility] ([facility])[address] [place] [address] Erythrocyte distribution width (RBC) [Ratio]16.3 %High11.5-15.0UnKeenan Private HospitalComment on above:Performed By: #### [id number] ####[facility] ([facility])[address] [place], [place] [address]YGTXMFKGWYN MEAN CORPUSCULAR HEMOGLOBIN CONCENTRATION (G/DL) BY OOLBVOZOL59.6 g/dLLow32.0-35.0 [facility] HospitalComment on above:Performed By: #### [id number] ####[facility] (BEAKER)[address] [place], [place] [address]Artneiopqy (Bld) [Volume fraction]34.5 %Low36.0-48.0UnKeenan Private HospitalComment on above:Performed By: #### [id number] ####[facility] (BEAKER)[address] [place], [place] [address]Mocojselbq (Bld) [Mass/Vol]10.9 g/dLLow12.0-15.0UnKeenan Private HospitalComment on above:Performed By: #### [id number] ####[facility] (BEAKER)[address] [place], [place] [address]Meacekbc granulocytes (Bld) [#/Vol]0.04 10*3/uLNormal0.00-0.20UnKeenan Private Hospital Comment on above:Performed By: #### [id number] ####[facility] (BEAKER)[address] [place], [place] [address]Oalujjxv granulocytes/100 WBC (Bld)0.5 %Normal 0.0-1.0UnKeenan Private HospitalComment on above:Performed By: #### [id number] ####[facility] (BEAKER)[address] [place] [address] Lymphocytes (Bld) [#/Vol]1.83 10*3/uLNormal1.20-4.00UnKeenan Private HospitalComment on above:Performed By: #### [id number] ####[facility] (BEAKER)[address] [place], [place] [address]Ucajeowzuau/100 WBC (Bld)24.8 %Normal 20.0-45.0UnKeenan Private HospitalComment on above:Performed By: #### [id number] ####[facility] (BEAKER)[address] [place], [place] [address]PJN (RBC) [Entitic mass]28.0 ehImdbyx50.0-33.0UnKeenan Private Hospital Comment on above:Performed By: #### [id number] ####[facility] ([facility])[address] [place] [address]OKT (RBC) [Entitic vol]88.7 hWKrflcb45.0-98.0 [facility] HospitalComment on above:Performed By: #### [id number] ####[facility] ([facility])[address] [place] [address]Nxhonctwr (Bld) [#/Vol]0.70 10*3/uLNormal0.10-1.00UnKeenan Private HospitalComment on above:Performed By: #### [id number] ####[facility] ([facility])[address] [place] [address]Rczayyqkm/100 WBC (Bld)9.5 %Normal5.0-12.0UnKeenan Private HospitalComment on above:Performed By: #### [id number] ####[facility] ([facility])[address] [place] [address]Knvzzpxzdtx (Bld) [#/Vol] 4.57 10*3/uLNormal1.60-7.60UnKeenan Private HospitalComment on above: Performed By: #### [id number] ####[facility] ([facility])[address] [place] [address]Cbflbqswwij/100 WBC (Bld)61.9 %Irhczr00.0-72.0UnKeenan Private HospitalComment on above:Performed By: #### [id number] ####[facility] ([facility])[address] [place] [address]GLNY (PER 100 WBCS) BY AUTOMATED COUNT0.0 %Fiwueh6UiguqnkqakKeenan Private HospitalComment on above: Performed By: #### [id number] ####[facility] ([facility])[address] [place] [address]XGCDMQZDB (10*3/UL) IN BLOOD AUTOMATED [id number] 10*3/uLNormal 150-400University [facility]arcenas Medical CenterComment on above:Performed By: #### [id number] ####[facility] ([facility])[address] [place] [address]HDR (Bld) [#/Vol]3.89 10*6/uLNormal3.80-5.00[facility] Comment on above:Performed By: #### [id number] ####[facility] ([facility])[address] [place] [address]SPI (Bld) [#/Vol]7.39 10*3/uLNormal4.00-10.60 [facility] HospitalComment on above:Performed By: #### [id number] ####[facility] ([facility])[address] [facility] [place] [address]ETMKMQVva 32-01-2442UYXHENBLifdrsKadholhaog of [place] Medical CenterCONSULTNormal [facility] HospitalMAGNESIUMon 67-24-6339Gzoweztzg [Mass/Vol]1.9 mg/dLNormal1.9-2.7UnKeenan Private HospitalComment on above:Performed By: #### [id number] ####[facility] ([facility])[address] [place], [place] [address]Iuovvmepb [Mass/Vol]1.8 mg/dLLow1.9-2.7UnKeenan Private Hospital Comment on above:Performed By: #### [id number] ####[facility] ([facility])[address] [place], [place] [address]MVYR/MSSA DNA NASALon 86-98-6169ASGM DNANegative NormalNegativeUnKeenan Private HospitalComment on above:Order Comment: Testing methodology is [...] does not preclude nasal colonization.Performed By: #### [id number] ####[facility] ([facility])[address] [place], [place] [address]ZAVI DNANegative NormalNegativeSuburban Community Hospital & Brentwood HospitalComment on above:Order Comment: Testing methodology is [...] does not preclude nasal colonization.Performed By: #### [id number] ####[facility] ([facility])[address] [place], [place] [address]MXNVASDBwm 52-57-5405JPIPCDJVUWDKHW: 41.9 MIN K: 1723 MGY CONTRAST: 80 MLNormalUnKeenan Private HospitalNURSNOTEACT 225Normal [facility] HospitalNURSNOTEOk per Dr Van to give amiodarone patient HR 53NormalUniversMarymount HospitalOPNOTEon 37-62-4067AQRFXX NormalUnKeenan Private HospitalPHOSPHORUSon 97-38-0358Hylfmgwdz [Mass/Vol]4.5 mg/dLNormal2.5-5.0UnKeenan Private HospitalComment on above:Performed By: #### [id number] ####[facility] ([facility])[address] [place], [place] [address]OGLW ACTIVATED CLOTTING TIME UNSOLICITED RESULTSon 01-28-2024 POC ACTIVATED CLOTTING [id number] yxzJcaz11-726PtsudeuqkqKeenan Private Hospital Comment on above:Performed By: #### [id number] ####[facility] ([facility])[address] [place], [place] [address]MYBG GLUCOSE METER UNSOLICITED RESULTSon 01-28-2024 Glucose [Mass/Vol]112 mg/jDSncb79-011NempemtkzmKeenan Private HospitalComment on above:Order Comment: Waived Testing in the ED is performed under the ED CLIA certificate #[id number].Result Comment: [id number] By: #### [id number] ####[facility] ([facility])[address] [place], [place] [address]Tdbsbvt [Mass/Vol]105 mg/qTJzzhub76-327HolyvzglfpKeenan Private HospitalComment on above:Order Comment: Waived Testing in the ED is performed under the ED CLIA certificate #[id number].Result Comment: [id number] By: #### [id number] ####[facility] ([facility])[address] [place], [place] [address]VVIY PERFUSION PANEL UNSOLICITED RESULTSon 49-77-1112GZ2 [Moles/Vol]29.0 mmol/KUnmibi39.0-29.0 [facility] HospitalComment on above:Performed By: #### [id number] ####[facility] ([facility])[address] [place], [place] [address]Cxgoxsz [Mass/Vol]139 mg/vNRmpw61-384PotjcfrlnaKeenan Private HospitalComment on above:Performed By: #### [id number] ####[facility] ([facility])[address] [place], [place] [address]KNR6 (Bld) [Moles/Vol]27.9 mmol/ZBgbhcj19.0-28.0UnKeenan Private HospitalComment on above:Performed By: #### [id number] ####[facility] ([facility])[address] [place], [place] [address]Celgkdaxjz (Bld) [Volume fraction]33 %Qlu03-32YvjctuyxoaKeenan Private HospitalComment on above: Performed By: #### [id number] ####[facility] ([facility])[address] [place], [place] [address]Bgjwllbgyt (Bld) [Mass/Vol]11.2 g/dLLow12.0-17.0UnKeenan Private HospitalComment on above:Performed By: #### [id number] ####[facility] ([facility])[address] [place], [place] [address]OOYJ BASE EXCESS2.0 mmol/LNormal-2.0-3.0UnKeenan Private HospitalComment on above: Performed By: #### [id number] ####[facility] ([facility])[address] [place] [address]SDLY IONIZED CALCIUM1.22 mmol/LNormal1.12-1.32UnKeenan Private HospitalComment on above:Performed By: #### [id number] ####[facility] ([facility])[address] [place] [address]ENPX SAO353.6 mmHgNormal 41.0-51.0UnKeenan Private HospitalComment on above:Performed By: #### [id number] ####[facility] ([facility])[address] [place] [address]GOYY PH 7.87Trbwvw2.31-7.41UnKeenan Private HospitalComment on above:Performed By: #### [id number] ####[facility] ([facility])[address] [place] [address]LTZQ AC1224 njIoOcoq12-281SeqlunfbuvKeenan Private HospitalComment on above:Performed By: #### [id number] ####[facility] ([facility])[address] [place] [address]KFCK SO298 %Eatnxv97-77AfnmlceuhlKeenan Private Hospital Comment on above:Performed By: #### [id number] ####[facility] ([facility])[address] [place] [address]Itnohgvfd [Moles/Vol]4.0 mmol/LNormal3.5-4.9 [facility] HospitalComment on above:Performed By: #### [id number] ####[facility] ([facility])[address] [place] [address]Yvznxk [Moles/Vol]142 mmol/WVjfbej327.0-146.0UnKeenan Private HospitalComment on above:Performed By: #### [id number] ####[facility] ([facility])[address] [place], [place] [address]XRGLZCVGC, WHOLE BLOODon 07-93-9676Mmwmjzpoe [Moles/Vol]3.9 mmol/LNormal3.5-5.1UnKeenan Private HospitalComment on above:Performed By: #### POTASSIUM, WHOLE BLOOD ####[facility] RESPIRATORY [id number] [place] [address] USAPROTIME-INRon 13-02-7730KUV IN PPP BY COAGULATION ASSAY1.40Nptb3.90-1.10UnKeenan Private HospitalComment on above:Result Comment: [facility] RECOMMENDED INR FOR WARFARIN THERAPY CONDITION INRPROPHYLAXIS OF VENOUS THROMBOSIS 2-3(HIGH-RISK SURGERY)TREATMENT OF VENOUS THROMBOSIS 2-3TREATMENT OF PULMONARY EMBOLISM 2-3PREVENTION OF SYSTEMIC EMBOLISM: 2-3 ACUTE MYOCARDIAL INFARCTION TISSUE HEART VALVES VALVULAR HEART DISEASE ATRIAL FIBRILLATION RECURRENT SYSTEMIC EMBOLISMMECHANICAL HEART VALVE 2.5-3.5 FROM: ORAL ANTICOAGULANTS. MECHANISM OF ACTION, CLINICAL EFFECTIVENESS, AND OPTIMAL THERAPE UTIC RANGE. CHEST 1995;108:231S-246S.Performed By: #### [id number] ####[facility] ([facility])[address] [place], [place] [address]BOQBNKKNOJR TIME (PT) IN PPP BY COAGULATION ASSAY14.5 GdzgdxiLxrnga81.3-14.8UnKeenan Private HospitalComment on above:Performed By: #### [id number] ####[facility] ([facility])[address] [place], [place] [address]PPFRTD, WHOLE BLOODon 01-28-2024 SODIUM, WHOLE NFUAR035Nlommy854-682JvavfsvokxKeenan Private HospitalComment on above:Performed By: #### SODIUM, WHOLE BLOOD ####[facility] RESPIRATORY [id number] [place] [address] YLK03hf 62-30-918216LbjwyqFdahabpoeo of [facility] Medical CenterAPTSierra Tucson 32-85-3092SBZVGKERU PARTIAL THROMBOPLASTIN TIME IN PPP BY COAGULATION ASSAY32.6 DrcrjrwVjwibl84.0-35.0UnKeenan Private Hospital Comment on above:Result Comment: Clinical significance of the APTT is questionable in the presence of heparin.Performed By: #### [id number] ####[facility] (AKER)[address] [place], [place] [address]YXH WITH AUTO DIFFERENTIALon 05-47-3457Lyybtjnbw (Bld) [#/Vol]0.03 10*3/uLNormal0.00-0.20 [facility] HospitalComment on above:Performed By: #### [id number] ####[facility] ([facility])[address] [place], [place] [address]Mbiuogjlu/100 WBC (Bld)0.4 %Normal0.0-1.0UnKeenan Private HospitalComment on above: Performed By: #### [id number] ####[facility] (BE[facility])[address] [place], [place] [address]Rlsrlmcjvxe (Bld) [#/Vol]0.20 10*3/uLNormal0.00-0.50 [facility] HospitalComment on above:Performed By: #### [id number] ####[facility] (BEAKER)[address] [place], [place] [address]Trskaxyeofe/100 WBC (Bld)2.7 %Normal0.0-6.0UnKeenan Private HospitalComment on above: Performed By: #### [id number] ####[facility] (BE[facility]ER)[address] [place], [place] [address]Aezdddjifyy distribution width (RBC) [Ratio]15.8 %High 11.5-15.0UnKeenan Private HospitalComment on above:Performed By: #### [id number] ####[facility] (BEAKER)[address] [place] [address] ERYTHROCYTE MEAN CORPUSCULAR HEMOGLOBIN CONCENTRATION (G/DL) BY MMUGZEUKE05.0 g/oYClzznq20.0-35.0UnKeenan Private HospitalComment on above:Performed By: #### [id number] ####[facility] (BEAKER)[address] [place], [place] [address]Onnbwlzlwh (Bld) [Volume fraction]36.3 %Edczmj46.0-48.0UnKeenan Private HospitalComment on above:Performed By: #### [id number] ####[facility] ([facility])[address] [place], [place] [address]Gwsreudfuy (Bld) [Mass/Vol]11.6 g/dL Low12.0-15.0UnKeenan Private HospitalComment on above:Performed By: #### [id number] ####[facility] ([facility])[address] [place] [address] Immature granulocytes (Bld) [#/Vol]0.05 10*3/uLNormal0.00-0.20UnKeenan Private HospitalComment on above:Performed By: #### [id number] ####[facility] (BEAKER)[address] [place], [place] [address]Sherifpw granulocytes/100 WBC (Bld)0.7 %Normal0.0-1.0UnKeenan Private HospitalComment on above: Performed By: #### [id number] ####[facility] (BEAKER)[address] [place], [place] [address]Fndcpgdysvr (Bld) [#/Vol]1.81 10*3/uLNormal1.20-4.00 [facility] HospitalComment on above:Performed By: #### [id number] ####[facility] (BEAKER)[address] [place], [place] [address]Zqoipnlxafk/100 WBC (Bld)24.0 %Zwggry75.0-45.0UnKeenan Private HospitalComment on above:Performed By: #### [id number] ####[facility] ([facility])[address] [place] [address]EUH (RBC) [Entitic mass]28.6 iqEbipdp87.0-33.0UnKeenan Private HospitalComment on above:Performed By: #### [id number] ####[facility] ([facility])[address] [place] [address]POF (RBC) [Entitic vol] 89.6 zGJthbzl66.0-98.0UnKeenan Private HospitalComment on above: Performed By: #### [id number] ####[facility] ([facility])[address] [place] [address]Xqphsqwyn (Bld) [#/Vol]0.62 10*3/uLNormal0.10-1.00UnKeenan Private HospitalComment on above:Performed By: #### [id number] ####[facility] ([facility])[address] [place] [address]Rixbrlpcf/100 WBC (Bld) 8.2 %Normal5.0-12.0UnKeenan Private HospitalComment on above:Performed By: #### [id number] ####[facility] ([facility])[address] [place], [place] [address]Yfnwavozzoo (Bld) [#/Vol]4.82 10*3/uLNormal1.60-7.60UnKeenan Private HospitalComment on above:Performed By: #### [id number] ####[facility] ([facility])[address] [place] [address]Hrhggxlsvzk/100 WBC (Bld)64.0 %Normal 40.0-72.0UnKeenan Private HospitalComment on above:Performed By: #### [id number] ####[facility] ([facility])[address] [place] [address]XLOS (PER 100 WBCS) BY AUTOMATED COUNT0.0 %Vqkfvc8TrvbuqxqvqKeenan Private Hospital Comment on above:Performed By: #### [id number] ####[facility] ([facility])[address] [place] [address]CJRMSAKYR (10*3/UL) IN BLOOD AUTOMATED FDIUE793 10*3/oJKgfumf018-985VdiviwjyalKeenan Private HospitalComment on above: Performed By: #### [id number] ####[facility] ([facility])[address] [place] [address]EJV (Bld) [#/Vol]4.05 10*6/uLNormal3.80-5.00UnKeenan Private HospitalComment on above:Performed By: #### [id number] ####[facility] ([facility])[address] [place] [address]WBU (Bld) [#/Vol]7.53 10*3/uLNormal4.00-10.60UnKeenan Private HospitalComment on above: Performed By: #### [id number] ####[facility] ([facility])[address] [place], [place] [address]QXQXFNCDXMCRI METABOLIC PANELon 84-61-7240Lkvzvqc [Mass/Vol] 3.7 g/dLNormal3.5-5.7UnKeenan Private HospitalComment on above: Performed By: #### [id number] ####[facility] ([facility])[address] [place], [place] [address]YJZ [Catalytic activity/Vol]81 U/DRkcuvq22-814IiwyggralhKeenan Private HospitalComment on above:Performed By: #### [id number] ####[facility] ([facility])[address] [place], [place] [address]KAS [Catalytic activity/Vol]9 U/L Normal7-52UnKeenan Private HospitalComment on above:Performed By: #### [id number] ####[facility] ([facility])[address] [place], [place] [address]Rxefl gap [Moles/Vol]10 mmol/LNormal7-20UnKeenan Private HospitalComment on above:Performed By: #### [id number] ####[facility] (BEAKER)[address] [place] [address]HCD [Catalytic activity/Vol]13 U/PNskmsy67-81QtkccdfdisKeenan Private HospitalComment on above:Performed By: #### [id number] ####[facility] ([facility])[address] [place] [address]Gdfyyceul [Mass/Vol]0.8 mg/dL Normal0.3-1.0UnKeenan Private HospitalComment on above:Performed By: #### [id number] ####[facility] ([facility])[address] [place] [address] Calcium [Mass/Vol]9.0 mg/dLNormal8.6-10.3UnKeenan Private Hospital Comment on above:Performed By: #### [id number] ####[facility] ([facility])[address] [place] [address]Lvxkoqta [Moles/Vol]106 mmol/URivzrm97-940 [facility] HospitalComment on above:Performed By: #### [id number] ####[facility] ([facility])[address] [place] [address]ZD9 [Moles/Vol] 27 mmol/RCgcvov28-88VmfnaufyomKeenan Private HospitalComment on above: Performed By: #### [id number] ####[facility] ([facility])[address] [place] [address]Mvljtfvijs [Mass/Vol]1.14 mg/dLNormal0.60-1.20UnKeenan Private HospitalComment on above:Performed By: #### [id number] ####[facility] ([facility])[address] [place], [place] [address]DQDAHOWPOH FILTRATION RATE ML/MIN/1.73 SQ M.QMFHWCZCT72.7 mL/min/1.73m*2Low>60.0UnKeenan Private Hospital Comment on above:Result Comment: [facility]???s estimated glomerular filtration rate (eGFR) will [...] anyone group of individuals.Performed By: #### [id number] ####[facility] ([facility])[address] [place], [place] [address]Xkeazsg [Mass/Vol]88 mg/uTBozwbu46-612KmdzcnkmaiKeenan Private HospitalComment on above:Performed By: #### [id number] ####[facility] ([facility])[address] [place], [place] [address]Gzdxbkvlh [Moles/Vol]3.8 mmol/LNormal3.5-5.1UnKeenan Private HospitalComment on above:Performed By: #### [id number] ####[facility] ([facility])[address] [place], [place] [address]Evsdhjp [Mass/Vol]5.9 g/dLLow 6.0-8.3UnKeenan Private HospitalComment on above:Performed By: #### [id number] ####[facility] ([facility])[address] [place], [place] [address]Dexfaj [Moles/Vol]139 mmol/HTqeujs100-469BrbcqahodgKeenan Private HospitalComment on above:Performed By: #### [id number] ####[facility] ([facility])[address] [place], [place] [address]Ilde nitrogen [Mass/Vol]20 mg/dLNormal7-25UnKeenan Private HospitalComment on above:Performed By: #### [id number] ####[facility] ([facility])[address] [place], [place] [address]GBTN NITROGEN/CREATININE (MASS RATIO) IN SER/PLAS17.5NormalUniversMarymount HospitalComment on above: Performed By: #### [id number] ####[facility] ([facility])[address] [place], [place] [address]NYKPLQKlc 35-60-7610YVIAFPNPywsyzDqtbjykpdb of [facility] Medical CenterCTA ABDOMEN PELVIS W IV CONTRASTon 52-32-5552DMB ABDOMEN PELVIS W IV CONTRASTNormal [facility] HospitalCTA CHEST W IV CONTRASTon 89-29-0466ZID CHEST W IV CONTRASTNormalUniversSelect Medical Specialty Hospital - TrumbullPROVon 17-80-3398SZISRG NormalUnKeenan Private HospitalHPon 13-06-1960QFQjzrlnKqanaoarqp of [facility] Medical CenterLACTIC ACID WITH 4 HOUR REFLEXon 03-48-7680NPAXDNN (MMOL/L) IN SER/PLAS0.7 mmol/LNormal0.5-2.2[facility] HospitalComment on above:Performed By: #### [id number] ####[facility] ([facility])[address] [place], [place] [address]GCNRGCeh 06-70-3283PHNDXZ (U/L) IN SER/PLAS18 U/UKjxuwn80-26 [facility] HospitalComment on above:Performed By: #### [id number] ####[facility] ([facility])[address] [place], [place] [address]TNRSCKYPDmv 25-39-1425Jwcxdlseb [Mass/Vol]1.9 mg/dLNormal1.9-2.7[facility] HospitalComment on above:Performed By: #### [id number] ####[facility] ([facility])[address] [place], [place] [address]STMF GLUCOSE METER UNSOLICITED RESULTS on 69-42-1553Sqzcjdc [Mass/Vol]158 mg/wAVhov59-226IaziaclnzfKeenan Private HospitalComment on above:Order Comment: Waived Testing in the ED is performed under the ED CLIA certificate #[id number].Result Comment: pywvwlb32Qjxgaodje By: #### [id number] ####[facility] ([facility])[address] [place] [address] Glucose [Mass/Vol]86 mg/eNLunxdb50-005OqsyxzoxobKeenan Private HospitalComment on above:Order Comment: Waived Testing in the ED is performed under the ED CLIA certificate #[id number].Result Comment: xzbhehz98Jxcrnsdfb By: #### [id number] ####[facility] (BEAKER)[address] [place], [place] [address]Xaiofpg [Mass/Vol]99 mg/fXEwxftw77-109NmdiiuymbwKeenan Private HospitalComment on above:Order Comment: Waived Testing in the ED is performed under the ED CLIA certificate #[id number].Result Comment: qdqmuxr40Gkqmcafpb By: #### [id number] ####[facility] ([employer])[address] [place], [place] [address]SXLNMKH-DFCyx 87-78-0721OLQ IN PPP BY COAGULATION ASSAY1.22Ysfw0.90-1.10UnKeenan Private HospitalComment on above:Result Comment: [facility] RECOMMENDED INR FOR WARFARIN THERAPY CONDITION INRPROPHYLAXIS OF VENOUS THROMBOSIS 2-3(HIGH-RISK SURGERY)TREATMENT OF VENOUS THROMBOSIS 2-3TREATMENT OF PULMONARY EMBOLISM 2-3PREVENTION OF SYSTEMIC EMBOLISM: 2-3 ACUTE MYOCARDIAL INFARCTION TISSUE HEART VALVES VALVULAR HEART DISEASE ATRIAL FIBRILLATION RECURRENT SYSTEMIC EMBOLISMMECHANICAL HEART VALVE 2.5-3.5 FROM: ORAL ANTICOAGULANTS. MECHANISM OF ACTION, CLINICAL EFFECTIVENESS, AND OPTIMAL THERAPE UTIC RANGE. CHEST 1995;108:231S-246S.Performed By: #### [id number] ####[facility] (BEAKER)[address] [place], [place] [address]DXJWJVCMMJB TIME (PT) IN PPP BY COAGULATION ASSAY14.8 TzlwfbrEingez89.3-14.8[facility] HospitalComment on above:Performed By: #### [id number] ####[facility] ([facility])[address], [place] [address]UHFDPGSZ Ion 54-79-8719Ystsgzrj I.cardiac [Mass/Vol]0.02 ng/mLNormal0.00-0.04UnKeenan Private Hospital Comment on above:Performed By: #### [id number] ####[facility] ([facility])[address] [facility], [place] [address]PKDP AND SCREENon 46-60-8432PZ SCREENNegativeNormal [facility] HospitalComment on above:Performed By: #### [id number] ####[facility] BLOOD BANK,ABO group Nom (Bld)ONormalUnKeenan Private HospitalComment on above:Performed By: #### [id number] ####[facility] BLOOD BANK,RH TYPE IN BLOODPositiveNormalUniCommunity Memorial HospitalComment on above:Performed By: #### [id number] ####[facility] BLOOD BANK,36on 72-27-750597SfsieaWvngdhbfgzCommunity Memorial HospitalAlanine aminotransferase [Enzymatic activity/volume] in Serum or PlasmaOrdered By: Anju Lees on 15-71-4560BGR [Catalytic activity/Vol]11 U/L 7-52Parkview HealthAlbumin [Mass/volume] in Serum or Plasma by Bromocresol green (BCG) dye binding methoOrdered By: Anju Lees on 01-61-0174Sckdygf BCG dye [Mass/Vol]3.7 g/dL3.5-5.7FGood Samaritan HospitalAlkaline phosphatase [Enzymatic activity/volume] in Serum or PlasmaOrdered By: Anju Lees on 20-57-7839FKL [Catalytic activity/Vol]110 U/L34-104 Parkview HealthAspartate aminotransferase [Enzymatic activity/volume] in Serum or PlasmaOrdered By: Anju Lees on 64-25-7181HKC [Catalytic activity/Vol]16 U/O15-25KtlkfxcgtParkview HealthBasophils Auto (Bld) [#/Vol]Ordered By: Anju Lees on 94-42-7318Rrxkkqyjc (Bld) [#/Vol]0.1 10*3/uL0.0-0.2FGood Samaritan HospitalBasophils/100 WBC Auto (Bld)Ordered By: Anju Lees on 26-30-8663Jhuxiyaxo/100 WBC (Bld)0.6 %. [facility]view HealthBilirubin.total [Mass/volume] in Serum or PlasmaOrdered By: Anju Lees on 38-78-9885Fjqmlpnnp [Mass/Vol]0.5 mg/dL 0.3-1.0Parkview HealthCalcium [Mass/volume] in Serum or Plasma Ordered By: Anju Lees on 30-15-0496Xazydut [Mass/Vol]9.5 mg/dL8.6-10.3 [facility] HealthCarbon dioxide, total [Moles/volume] in Serum or PlasmaOrdered By: Anju Lees on 52-20-8909LM0 [Moles/Vol]31.9 mmol/L 21.0-31.0Parkview HealthChloride [Moles/volume] in Serum or PlasmaOrdered By: Anju Lees on 80-77-8115Ndmsvllf [Moles/Vol]102 mmol/L 98-107Parkview HealthCreatinine [Mass/volume] in Serum or PlasmaOrdered By: Anju Lees on 73-22-7083Zsfqvwtclo [Mass/Vol]1.01 mg/dL 0.60-1.20Parkview HealthEosinophils Auto (Bld) [#/Vol]Ordered By: Anju Lees on 70-61-8456Nkfvpxkkkkg (Bld) [#/Vol]0.3 10*3/uL0.0-0.45 Park[facility] HealthEosinophils/100 WBC Auto (Bld)Ordered By: Anju Lees on 72-17-7999Apqsljewgtb/100 WBC (Bld)3.1 %.Parkview HealthErythrocyte distribution width Auto (RBC) [Ratio]Ordered By: Anju Lees on 57-09-9200Lomhhbpxwes distribution width (RBC) [Ratio]16.3 % 11.9-15.3FGood Samaritan HospitalGlobulin Calc (S) [Mass/Vol]Ordered By: Anju Lees on 41-46-1404Nhpboepa (S) [Mass/Vol]2.0 g/dLParkview HealthGlucose [Mass/volume] in Serum or PlasmaOrdered By: Anju Lees on 31-89-0200Tizdkgf [Mass/Vol]89 mg/xT36-229ZegepzgauParkview HealthHematocrit Auto (Bld) [Volume fraction]Ordered By: Anju Lees on 44-03-9333Hhcstklnyg (Bld) [Volume fraction]33.3 %34.0-46.4FGood Samaritan HospitalHemoglobin [Mass/volume] in BloodOrdered By: Anju Lees on 64-97-5186Jsqvpaqfyk (Bld) [Mass/Vol]11.1 g/dL11.8-15.4FGood Samaritan HospitalLeukocytes [#/volume] corrected for nucleated erythrocytes in Blood by Automated counOrdered By: Anju Lees on 60-37-2330PSQ corrected for nucl RBC Auto (Bld) [#/Vol]9.1 10*3/uL3.8-11.6FGood Samaritan Hospital Lymphocytes Auto (Bld) [#/Vol]Ordered By: Anju Lees on 04-17-2023 Lymphocytes (Bld) [#/Vol]2.1 10*3/uL1.00-4.8[facility] Lymphocytes/100 WBC Auto (Bld)Ordered By: Anju Lees on 04-17-2023 Lymphocytes/100 WBC (Bld)22.7 %.Parkview HealthMCH Auto (RBC) [Entitic mass]Ordered By: Anju Lees on 49-81-9040EMM (RBC) [Entitic mass] 27.9 pg24.7-34.3FGood Samaritan HospitalMCHC Auto (RBC) [Mass/Vol] Ordered By: Anju Lees on 20-62-1409CEGI (RBC) [Mass/Vol]33.4 g/dL32.0-35.0 [facility] CenterMCV Auto (RBC) [Entitic vol]Ordered By: Anju Lees on 35-43-0064PXW (RBC) [Entitic vol]83.3 hK65-035PhvibtljdParkview HealthMonocytes Auto (Bld) [#/Vol]Ordered By: Anju Lees on 37-51-2420Idxxdywdt (Bld) [#/Vol]0.6 10*3/uL0.0-0.8Parkview HealthMonocytes/100 WBC Auto (Bld)Ordered By: Anju Lees on 04-17-2023 Monocytes/100 WBC (Bld)6.5 %.[facility]view HealthNeutrophils Auto (Bld) [#/Vol]Ordered By: Anju Lees on 36-75-3734Qaxixoortln (Bld) [#/Vol] 6.1 10*3/uL1.8-7.7FGood Samaritan HospitalNeutrophils/100 WBC Auto (Bld)Ordered By: Anju Lees on 31-17-9160Rdwgrtkphch/100 WBC (Bld)67.1 %. Parkview HealthNo Panel InformationOrdered By: Anju Lees on 11-14-8400Ruxgqjgyh GFR (CKD-EPI)56.627 mL/MinParkview HealthPharmacy Creatinine Clearance (ChemN/[facility] Nucleated erythrocytes [Presence] in Blood by Automated countOrdered By: Anju Lees on 42-93-9776Wrrandeae RBC Auto Ql (Bld)0.1 /100{WBC}0-0.5FGood Samaritan HospitalPlatelet mean volume Auto (Bld) [Entitic vol]Ordered By: Anju Lees on 02-59-1090Udksavzm mean volume (Bld) [Entitic vol]8.7 fL 6.3-10.7FGood Samaritan HospitalPlatelets Auto (Bld) [#/Vol]Ordered By: Anju Lees on 84-48-5318Idbjigmzl (Bld) [#/Vol]249 10*3/oA360-529LzjlghubpParkview HealthPotassium [Moles/volume] in Serum or PlasmaOrdered By: Anju Lees on 69-45-1994Mzlgrjvcy [Moles/Vol]4.2 mmol/L3.5-5.1FGood Samaritan HospitalProtein [Mass/volume] in Serum or PlasmaOrdered By: Anju Lees on 47-69-6729Euienmy [Mass/Vol]5.7 g/dL6.4-8.9Parkview HealthRBC Auto (Bld) [#/Vol]Ordered By: Anju Lees on 70-25-9021IQN (Bld) [#/Vol]4.00 10*6/uL3.60-5.00[facility]acon[facility] Hospitalerum or plasma albumin/globulin mass ratioOrdered By: Anju Lees on 04-17-2023 Albumin/Globulin [Mass ratio]1.9 {ratio}[facility] Hospitalerum or plasma anion gap determinationOrdered By: Anju Lees on 41-73-7046Lldrd gap [Moles/Vol]10.3 mmol/L6.0-15.0[facility]acon[facility] Hospitalodium [Moles/volume] in Serum or PlasmaOrdered By: Anju Lees on 87-83-7146Chzymq [Moles/Vol]140 mmol/W173-832TekswdmhqParkview HealthUrea nitrogen [Mass/volume] in Serum or PlasmaOrdered By: Anju Lees on 62-03-1859Rirk nitrogen [Mass/Vol]23 mg/dL7-25Parkview HealthWBC Auto (Bld) [#/Vol]Ordered By: Anju Lees on 88-34-7546CSU (Bld) [#/Vol]9.1 10*3/uL 3.8-11.6FGood Samaritan HospitalECHOCARDIO M/2D COMPLETEon 05-29-2022 ECHOCARDIO M/2D COMPLETEPatient: SHAYY MAYNARD Exam Date: 05/29/2022 : 1945 Gender:F Ordering : DR VELASQUEZ BUNCH . Admission #: [id number] Family : Order #: [id number] CLICK HERE TO VIEW EXAM ECHOCARDIOGRAM REPORT [...] by: Moises Shore M.D. on 05/30/2022 at 18:32[facility] BRAIN WO CONon [id number] BRAIN WO CONEXAMINATION: MRI BRAIN WO CON, [...] Electronically authenticated by: RENATA GAYTAN Date: 2022-05-29 13:51[facility] CAROTID ART BILon [id number] CAROTID ART BILEXAMINATION: US CAROTID ART JONY [...] Electronically authenticated by: RENATA GAYTAN Date: 2022-05-29 12:55[facility] HospitalCovid-19 PCR (CVDTBH)on [id number]-CoV-2 (COVID-19) RNA ARMIN+probe Ql (Unsp spec)Not detectedNormalNOT DETECTEDThe [facility] Comment on above:Result Comment: This test is not yet approved or cleared by the [place] FDA. When there are no FDA-approved or cleared tests available, and other criteria are met, FDA can make tests available under an emergency access mechanism called an Emergency Use Authorization (EUA). The EUA for this test is supported by the Leveler of Health and Human Service's (HHS's) declaration [...] consistent with SARS-CoV-2.Performed By: #### CVDTBH #### [facility] [address] [address] [address] Samuel KangAmbulatory Clinical Summaryon [id number] Clinical Summary{54-m9-[id number]-[id number]}CD:[id number] Health Upper Valley Medical CenterPatient Educationon 50-26-4775Fftqbdn EducationNutrition Calorie Counting for Weight Loss Calories [...] serving sizes. You could (more content not included)...[facility] SystemU[facility] Office/Clinic Noteon 90-89-3999Wtxlean Office/Clinic NoteChief Complaint Pt is here for [...] MD, Jude Farias URO In 6 months [phone] Additional Instructions: Patient Education Calorie Counting for [...] Recorded SARS-CoV-2 (COVID-19) mR (more content not included)...[facility] SystemComment on above:Result Comment: Electronically Signed By: TR MACIAS, Thuan Don\.br\Date and Time Signed: 09/11/20 16:11 EDT\.br\Electronically Co- Signed By: Anastasia Cabral\.br\Date and Time Co-Signed: 09/11/20 16:08 EDT Ambulatory Clinical Summaryon [id number] Clinical Summary {[id number]-[id number]}CD:[id number] Health [facility] Medical CenterPatient Educationon 80-46-2969Ztpcftc EducationUrology Urinary Incontinence Urinary incontinence refers to [...] stimulation). ? For women, using a medical office coordinator to prevent urine leaks. This is a [...] after experiencing incontinence. General instructions ? Take nsqg-ytd-qtkfcdy and prescription medicines only as (more content not included)...[facility] SystemUrology Office/Clinic Noteon 22-61-4271Krtbewo Office/Clinic NoteChief Complaint 2 week PO This [...] Jude Farias, URO [address] [place] [address]- Additional Instructions: 1mos. f/u Patient Education Urinary [...] with dilation of urethral (more content not included)...[facility] SystemComment on above: Result Comment: Electronically Signed By: Jude Finley Jr., MD\.br\Date and Time Signed: 08/08/2110:28 EDT\.br\Electronically Co-Signed By: Kisha Stevens MA\.br\Date and Time Co-Signed: 08/08/20 11:15 EDTOperative Reporton 23-95-2452Sbntojpqr [id number]#1.00CD:127 [facility] SystemPathology Noteon 20-86-6651Ieuitwqlf Note [id number]#1.00CD:127NormFostoria City HospitalComment on above:Result Comment: Electronically Signed By: Jude Finley Jr., MD\.br\Date and Time Signed: 08/07/2110:22 EDTECG 12-Leadon 99-01-3837KAV 12-[id number]#1.00CD:[address] [place] [address] Note-Physicianon 69-93-7402QK Note-Physician [id number]#1.00CD:[address] [place], [place] [address]Lab Reportson 71-30-9768Wsv Reports [id number]#1.00CD:[address] [place], [place] [address]Lab [id number]#1.00CD:[address] [place], [place] [address]RAD - MISCon 08-79-3440EON - MISC [id number]#1.00CD:[address] [place], [place] [address]Insurance Correspondence Officeon 03-29-4623Iydqglywy Correspondence [id number]#1.00CD:[address] [place], [place] [address]Operative Reporton 44-36-7001Nqmjozzbs Report [id number]#1.00CD:[address] [place], [place] [address]Physician Orderon 46-18-2267Jytmkmnid Order [id number]#1.00CD:[address] [place], [place] [address]Pre-Authorization for Medical Treatmenton 24-27-3961Qdm-Authorization for Medical [id number]#1.00CD:[address] [place], [place] [address]Ambulatory Clinical Summaryon 68-90-0988Oplsafkghj Clinical Summary{78-gt-70-oi-52-1l-10-67-45-98-37-91-45-4e-56-ed}CD:508240FqveveSt. Vincent Hospital Educationon 38-39-8939Silrunu Education Obstetrics and Gynecology Urethral Vaginal Sling [...] including vitamins, herbs, eye drops, creams, and elhm-tfa-gvnxvtq medicines. ? Any problems you or family [...] diabetes medicines or blood thinners. ? Taking iqcx-kas-yvysxil medicines, vitamins, herbs, and supplements. ? Taking [...] not intended to r (more content not included)...[facility] SystemUrology Office/Clinic Noteon 98-32-4392Rsyzxfn Office/Clinic NoteChief Complaint 3 week follow up This patient is a 75-year-old female with a history of a grade 2 midline cystocele. She is here today to discuss treatment options. She does have some symptoms of stress incontinence. She underwent cystoscopic examination with dilation of her urethra on May 08 2020. [facility] Staff Shayy is a 75 y.o. [...] urine and/or bladder capacity by US- non-imaging 87820 Urnls Dip Stick Auto w/o Microscopy POC 08179 Urology Procedure Order 2. Cystocele with prolapse [...] [facility] [address] [place] [address]- Additional Instructions: Patient Education Urethral Vaginal Sling [...] History of UTI Hypertensio (more content not included)...[facility] Comment on above:Result Comment: Electronically Signed By: Tushar Nunez MD, Jude Farias\.br\Date and Time Signed: 07/11/2113:49 EDT\.br\Electronically Co-Signed By: Libby Chambers MA\.br\Date and Time Co-Signed: 07/11/20 14:30 EDTAmbulatory Clinical Summaryon 37-41-2996Jopktryxzt Clinical Summary {s7-80-80-78-b5-6u-1n-07-75-7m-42-0m-3f-aa-b3-7a}CD:523679KindpjLsqweyPremier Health Upper Valley Medical CenterPatient Educationon 17-39-9320Zsgccnu EducationUrology Urethral Dilation Urethral dilation is a [...] including vitamins, herbs, eye drops, creams, and uqta-zmm-cwwyhey medicines. ? Any problems you or family [...] tells you to take them. ? Taking ooke-mcg-udyruas medicines, vitamins, herbs, and supplements. General instructions [...] these instructions at home: Medicines ? Take okid-uph-bbpkhpu and prescription medicines only as told by [...] to prevent or treat constipation: ? Take iyxn-esn-bripcmf or prescription medicines. ? Eat foods that [...] urinate. ? You pa (more content not included)...[facility] SystemUrology Office/Clinic Noteon 57-50-6825Gmybfjf Office/Clinic NoteChief Complaint Patient is here for [...] will require surgical repair for her cystocele. [facility] Staff Mariama is a 75 y.o. [...] Urnls Dip Stick Auto w/o Microscopy POC 02190 I have reviewed the previous health record information and history for this patient from Dr. Finley Follow-up With When Contact Information Tushar Nunez MD, Jude Farias, [facility] [address], [place] [address]- Additional Instructions: 2 weeks Patient Education Urethral [...] obstruction COPD mixed type (more content not included)...[facility] Comment on above:Result Comment: Electronically Signed By: Tushar Nunez MD, Jude Farias\.br\Date and Time Signed: 06/20/2113:36 EDT\.br\Electronically Co-Signed By: Maria Del Carmen Hernandez MA\.br\Date and Time Co-Signed: 06/20/2113:24 EDTCoding Summary. on 67-89-5485Sadkgn Summary. CD:[id number]:[id number]+PGhlYWQ+WL4OTRFgH55tqCPmoH4YA5tWUC1JNFMJQGWHMZ3AIP4wy QV1AXuzL2FfsvBp [file] bGxh (more content not included)...[facility] SystemConsent for Procedure/Surgeryon 33-96-0657Orwlkvm for Procedure/Surgery [id number]#1.00CD:127[facility] SystemConsent for Treatmenton 07-04-5004Mkahycd for Treatment [id number]#1.00CD:[address] [place], [place] [address]Discharge Instructionson 49-01-8166Pzcofesnf Instructions [id number]#1.00CD:127[facility] SystemIntraOperative Documentson 32-83-0269KrzytSgvfoovsj Documents [id number]#1.00CD:[address] [place], [place] [address]Main OR Intraoperative Recordon 26-39-8508Iblm OR Intraoperative Record IntraOp Document Type FTURO Summary Primary Physician: Jude Finley Jr., MD Finalized Date/Time: 06/15/20 15:02:47 Pt. Name: ALEXSHAYY/Sex: 1945 Female Med Rec #: [id number] Physician: Jude Finley Jr., MD Financial #: [id number] Pt. Type: O Room/Bed: / Admit/Disch: 06/15/20 13:40:05 - Institution: Case Times FTURO Entry 1 Patient Times In Room 06/15/20 14:48:00 Out Room 06/15/20 15:02:00 Procedure Times Start 06/15/20 14:50:00 Stop 06/15/20 14:52:00 Anesthesia Times Last Modified By: Vishal Manuel RN 06/15/20 15:02:42 Case Attendance FTURO Entry 1 Entry 2 Entry 3 Case Attendee Tushar Nunez MD, Jude Herrera ANIMAL BIOLOGIST, Vishal Campbell RN Role Performed Surgeon - Primary Scrub - Primary Linux Systems Analyst - Primary Time In 06/15/20 14:48:00 06/15/20 [...] Jude Finley Jr., MD, Verified (If Participants [facility] HospitalPauly, Applicable) Vishal Manuel RN Time Out Complete [...] Signatures Signed By: Vishal Manuel RN 06/15/20 15:02NoPremier Health Upper Valley Medical CenterMain OR Preoperative Recordon 05-08-3292Qfud OR Preoperative RecordHolding Area Document Type FTURO Summary Primary Physician: Jude Finley Jr., MD Finalized Date/Time: 06/15/20 14:34:27 Pt. Name: SHAYY MAYNARD /Sex: 1945 Female Med Rec #: [id number] Physician: Jude Finley Jr., MD Financial #: [id number] Pt. Type: O Room/Bed: / Admit/Disch: 06/15/20 [...] LPN 06/15/20 14:25 Vishal Manuel RN 06/15/20 14:34NoPremier Health Upper Valley Medical CenterOperative Reporton 71-18-1022Vzexsccsm ReportPatient: SHAYY MAYNARD Age: 75 years Sex: [...] urine. The Urethra was dilated to: 24 Portuguese w/ sounds. Devices Implanted: None. Removal: Cystoscope is removed, The patient tolerated it well. Postoperative Information Discharge: Patient is discharged home with antibiotic coverage, Follow up arranged, Office visit will be planned to make arrangements for repair of cystocele..[facility] SystemComment on above:Result Comment: Electronically Signed By: Tushar Nunez MD, Jude Farias\.br\Date and Time Signed: 06/15/2113:59 EDTPre-Authorization for Medical Treatmenton 21-81-4774Pzq- Authorization for Medical Treatment [id number]#1.00CD:127NoPremier Health Upper Valley Medical CenterAmbulatory Clinical Summaryon 39-18-7353Hmeyxfbgmn Clinical Summary {5b-7y-ch-28-v6-58-77-29-12-84-g6-1h-f2-02-f9-5b}CD:368869DycwxvTfmefpPremier Health Upper Valley Medical CenterPatient Educationon 36-27-4815Cjyxhat EducationUrology Urinary Incontinence Urinary incontinence refers to [...] stimulation). ? For women, using a medical office coordinator to prevent urine leaks. This is a [...] after experiencing incontinence. General instructions ? Take xvwi-fms-mjsbtlw and prescription medicines only as (more content not included)...NormalAtrium Health Lincolner Brook [facility] Psychiatric CenterUrology Office/Clinic Noteon 01-73-0131Udufgdw Office/Clinic NoteChief Complaint Patient is here for a follow up to [facility] for ball like object HPI Staff Shayy is a 75 y.o. female here for follow up to [place] [facility] for bladder hanging out, patient insists on planning surgery. Previous Dx: bladder infection, bladder outlet obstruction, dysuria, flank pain, gross hematuria, history of UTI, retention of urine, urethral stricture. 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 Patient was seen at [place] [facility] on 06/07/20 for a ball like [...] When Contact Information Jude Finley Jr., [place] [phone] Additional Instructions: Patient Education Urinary Incontinence Anastasia [...] Flank pain Gross hematuria (more content not included)...[facility] Comment on above:Result Comment: Electronically Signed By: Tushar Nunez MD, Jude Farias\.br\Date and Time Signed: 06/12/2109:30 EDT\.br\Electronically Co-Signed By: Anastasia Cabral\.br\Date and Time Co-Signed: 06/12/20 10:24 EDTCoding Summary.on 95-05-9212Mombta Summary.CODING DATE: 05/23/2020 FINAL [facility] STATUS: Home (Routine DC) PAYOR: Medicare [...] By: Ryann Villegas Date Saved: 05/23/2020 09:[address] Elizabeth Youngstown HospitalConsenton [id number]#1.00CD:127NormalMercy Health [address] Elizabeth Youngstown HospitalConsent for Procedure/Surgeryon 07-80-2088Dbrwazm for Procedure/[id number]#1.00CD:127Normal [facility] Psychiatric CenterConsent for Treatmenton 71-02-2995Ycyncmo for [id number]#1.00CD:[facility] Brook [address] Psychiatric CenterConsent for Treatment [id number]#1.00CD:JulianaHolzer Health SystemDischarge Instructionson 09-58-8302Fexzmnotl Instructions [id number]#1.00CD:JulianaHolzer Health SystemIntraOperative Documentson 85-67-8726CxspcWprnfdqmg Documents [id number]#1.00CD:127[facility] SystemMain OR Intraoperative Recordon 92-54-9381Ptbq OR Intraoperative Record IntraOp Document Type FTURO Summary Primary Physician: Jude Finley Jr., MD Finalized Date/Time: 05/18/20 14:11:35 Pt. Name: MARIAMA MAYNARD Srinath Grimes/Sex: 1945 Female Med Rec #: [id number] Physician: Jude Finley Jr., MD Financial #: [id number] Pt. Type: O Room/Bed: / Admit/Disch: 05/18/20 [...] MD, Jude Glasgow RN, CNOR, Luz Cormier ANIMAL BIOLOGIST, Vishal Yo Role Performed Surgeon - Primary Linux Systems Analyst - Primary Scrub - Primary Time In [...] 14:02 RYLAND Glasgow RN, Lou Ann 05/18/20 14:11[facility] SystemMain OR Preoperative Recordon 19-92-2545Rzma OR Preoperative RecordHolding Area Document Type FTURO Summary Primary Physician: Jude Finley Jr., MD Finalized Date/Time: 05/18/20 13:59:17 Pt. Name: MARIAMA MAYNARD/Sex: 1945 Female Med Rec #: [id number] Physician: Jude Finley Jr., MD Financial #: [id number] Pt. Type: O Room/Bed: / Admit/Disch: 05/18/20 [...] 13:42 RYLAND Glasgow RN, Lou Ann 05/18/20 13:59NoPremier Health Upper Valley Medical CenterOperative Reporton 97-79-3491Nyzujeoet ReportPatient: MARIAMA MAYNARD Age: 74 years Sex: [...] urine. The Urethra was dilated to: 28 Portuguese w/ sounds. Devices Implanted: None. Removal: Cystoscope is removed, The patient tolerated it well. Postoperative Information Discharge: Patient is discharged home with antibiotic coverage, Follow up arranged.[facility] SystemComment on above:Result Comment: Electronically Signed By: Tushar Nunez MD, Jude Pham.shane\Date and Time Signed: 05/18/2113:02 EDTAmbulatory Clinical Summaryon 21-75-5553Viaydxszem Clinical Summary{97-c8-2w-46-nl-69-6s-l3-m9-18-6r-48-65-93-fe-5a}CD:777286RxvcmwYmshloPremier Health Upper Valley Medical CenterPatient Educationon 69-57-1340Vexeaaa EducationUrinary Frequency The number of times a [...] frequency. Itis (more content not included)...NormalMercy Health St. Elizabeth Youngstown HospitalUrology Office/Clinic Noteon 85-82-8156Wnimxrr Office/Clinic NoteChief Complaint decreased voiding This patient [...] order Local anesthesia. ABX sent to [facility] in [place]. 2. Retention of urine (R33.9: Retention of [...] # 2 cap(s), Refills(s) 0, Pharmacy: [facility]/pharmacy #[id number], 163, cm, 05/11/20 8:31:00 EDT, Height/Length Dosing, 64.2, kg, 05/11/20 8:31:00 EDT, W... Measure Post Void residual urine and/or bladder capacity by US- non-imaging 11081 Urnls Dip Stick Auto w/o Microscopy POC 10741 I have reviewed the previous health record information and history for this pt. from Dr. Finley. Follow-up With When Contact Inf (more content not included)...[facility] Health SystemComment on above:Result Comment: Electronically Signed By: Tushar Nunez MD, Jude Farias\.br\Date and Time Signed: 05/11/2109:45 EDT\.br\Electronically Co- Signed By: Kisha Stevens MA.br\Date and Time Co-Signed: 05/11/20 08:53 EDT Ambulatory Clinical Summaryon 79-14-3620Mesxblzteg Clinical Summary {3u-r8-67-35-3m-bd-82-6t-mv-p4-a5-h3-e5-33-f1-71}CD:710165DddqxvVjseyzPremier Health Upper Valley Medical CenterPatient Educationon 97-13-9353Rvypiek EducationObstetrics and Gynecology Acute Urinary Retention, Female [...] lead to aurinary tract infection. Only take rxbn-ivy-qsetfpy or prescription medicines for pain, discomfort, or fever as directed by your caregiver. SEEK IMMEDIATE MEDICAL CARE IF: You develop chills, fever, or show signs of generalized illness that occurs prior to seeing your caregiver. Document Released: 02/09/2007 Document Revised: 05/04/2012 Document Reviewed: 01/12/2010 ExitCare? Patient Information ?2013 [employer]rin[employer].[facility] SystemUrology Office/Clinic Noteon 53-13-6000Yldpcov Office/Clinic NoteChief Complaint f/u to cysto UD [...] Urnls Dip Stick Auto w/o Microscopy POC 28636 3. Dysuria (R30.0: Dysuria) Mild burning w/ urination. I have reviewed the previous health record information and history for this pt. from Dr. Finley. Follow-up With When Contact Information Tushar Nunez MD, Jude Farias [address] [place] [address]- Additional Instructions: 1mos. w/ pVR Patient Education [...] furosemide 20 mg T (more content not included)...[facility] SystemComment on above:Result Comment: Electronically Signed By: Tushar Nunez MD, Jude Farias\.br\Date and Time Signed: 01/04/2012:26 EST\.br\Electronically Co- Signed By: Kisha Stevens MA\.br\Date and Time Co-Signed: 01/04/20 12:01 EST Operative Reporton 88-90-3044Wdnwfhiaf Report [id number]#1.00CD:127[facility] Health SystemCult,Bloodon 62-67-2889Xvgq,BloodSpecimen Description .BLOOD Special Requests 3ML LT A.C. Culture NO GROWTH 6 DAYS Report Status FINAL 10/18/2019[facility] CenterComment on above:Performed By: #### CDP, CP, LIP, TROPI, LIPRF, GLYHGB #### [facility] [address] [place] [address] Die Caster: Carlo Mcmanus,BloodSpecimen Description .BLOOD Special Requests back lt arm 3ml Culture NO GROWTH 6 DAYS Report Status FINAL 10/18/2019[facility] CenterComment on above:Performed By: #### CDP, CP, LIP, TROPI, LIPRF, GLYHGB #### [facility] [address] [place] [address] Die Caster: Carlo Mcmanus,Urineon 76-59-7998Bdbb,UrineSpecimen Description .CLEAN CATCH URINE Special Requests NOT REPORTED Culture STAPHYLOCOCCUS SPECIES, COAGULASE NEGATIVE >350748 CFU/ML Report Status FINAL 10/17/2019 SUSCEPTIBILITY Organism [...] NOT REPORTED Trimethoprim/Sulfa 20 SUSCEPTIBLE Vancomycin 1 SUSCEPTIBLENormalMercy Health Perrysburg HospitalComment on above: Performed By: #### CDP, CP, LIP, TROPI, LIPRF, GLYHGB #### [facility] [address] [place] [address] Die Caster: Josh Mcmanus Metab w/rfx MGon 10-16-2019(cont.)Normal [facility] Perrysburg HospitalComment on above:Result Comment: Average GFR for 70 or more years old: 75 mL/min/1.73sq m Chronic Kidney Disease: <60 mL/min/1.73sq m Kidney failure: <15 mL/min/1.73sq m eGFR calculated using average adult body mass. Additional eGFR calculator available at: http://www.[employer].Netformx/multiple_crcl_2012.htmPerformed By: #### KRIS, CP, LIP, TROPI, LIPRF, GLYHGB #### [facility] [address] [place], [place] [id number] Die Caster: Brandon Anaya MDAnion gap [Moles/Vol]13 mmol/LNormal9-17[facility] HospitalComment on above:Performed By: #### CDP, CP, LIP, TROPI, LIPRF, GLYHGB #### [employer] [address] [place], [place] [address] Die Caster: Bradnon Anaya MDCalcium [Mass/Vol]8.6 mg/dLNormal8.6-10.4Mer[facility] Perry[facility] HospitalComment on above:Performed By: #### CDP, CP, LIP, TROPI, LIPRF, GLYHGB #### [facility] [address] [place] [address] Die Caster: NEHAL Mcmanushloride [Moles/Vol]97 mmol/YFwn73-888QpiskMercy Health Perrysburg HospitalComment on above:Performed By: #### CDP, CP, LIP, TROPI, LIPRF, GLYHGB #### [facility] [address] [place] [address] Die Caster: Brandon Anaya MDCO2 [Moles/Vol]25 mmol/GXunran55-75PbtxqMercy Health Perrysburg HospitalComment on above:Performed By: #### CDP, CP, LIP, TROPI, LIPRF, GLYHGB #### [address] [address] Die Caster: NEHAL Mcmanusreatinine [Mass/Vol]0.42 mg/dLLow0.50-0.90Mer[facility] HospitalComment on above:Performed By: #### CDP, CP, LIP, TROPI, LIPRF, GLYHGB #### [facility] [address] [place] [address] Die Caster: Brandon Anaya MDGFR, Amer>60Normal>60[facility] HospitalComment on above:Performed By: #### CDP, CP, LIP, TROPI, LIPRF, GLYHGB #### [facility] [address] [place] [address] Die Caster: Brandon Anaya MDGFR,non Amer>60Normal>60[facility] HospitalComment on above:Performed By: #### CDP, CP, LIP, TROPI, LIPRF, GLYHGB #### [facility] [address] [place] [address] Die Caster: Brandon nAaya MDGlucose [Mass/Vol]87 mg/jOVjencf77-55DnoucSutter Tracy Community HospitalComment on above:Performed By: #### CDP, CP, LIP, TROPI, LIPRF, GLYHGB #### [facility] [address] [place] [address] Die Caster: BLADIMIR Mcmanusotassium [Moles/Vol]3.7 mmol/LNormal3.7-5.3 [facility] HospitalComment on above:Performed By: #### CDP, CP, LIP, TROPI, LIPRF, GLYHGB #### [facility] [address] [place] [address] Die Caster: FABIANA Mcmanusodium [Moles/Vol]135 mmol/BBaugtl410-932EscysMercy Health Perrysburg HospitalComment on above:Performed By: #### CDP, CP, LIP, TROPI, LIPRF, GLYHGB #### [facility] [address] [place] [address] Die Caster: Brandon Anaya MDUrea nitrogen [Mass/Vol]14 mg/dLNormal8-23[facility] HospitalComment on above:Performed By: #### CDP, CP, LIP, TROPI, LIPRF, GLYHGB #### [facility] [address] [place] [address] Die Caster: RADHA Mcmanus/CRE RatioNOT REPORTEDNormal9-20[facility] HospitalComment on above:Performed By: #### CDP, CP, LIP, TROPI, LIPRF, GLYHGB #### [facility] [address] [place] [address] Die Caster: FABIANA Mcmanustaging:NOT REPORTEDNormalMercy Health Perrysburg HospitalComment on above:Performed By: #### CDP, CP, LIP, TROPI, LIPRF, GLYHGB #### [facility] [address] [place] [address] Die Caster: Radha Mcmanuscentral state hospital Metabolic Panel w/ Reflex to MGon 85-98-3420Nohrp gap [Moles/Vol]13 mmol/L9 - 17 mmol/LMGood Samaritan Hospital, KYBun/Cre RatioNOT REPORTEDMerOhioHealth Mansfield Hospital, KYCalcium [Mass/Vol]8.6 mg/dL8.6 - 10.4 mg/dLMercy Health Allen Hospital, KYChloride [Moles/Vol]97 mmol/LLow98 - 107 mmol/LMGood Samaritan Hospital, KYCO2 [Moles/Vol]25 mmol/L20 - 31 mmol/LMOhio Valley Hospital [place], [place] Creatinine [Mass/Vol]0.42 mg/dLLow0.5 - 0.9 mg/dLMercy Health Allen Hospital, KYGFR >60>60 mL/minMercy Health Allen Hospital, KYGFR Non->60>60 mL/min [facility], KYGFR/1.73 sq M predicted among non-blacks MDRD (S/P/Bld) [Vol rate/Area][facility], KYComment on above:Average GFR for 70 or more years old: 75 mL/min/1.73sq m Chronic Kidney Disease: <60 mL/min/1.73sq m Kidney failure: <15 mL/min/1.73sq m eGFR calculated using average adult body mass. Additional eGFR calculator available at: http://www.[employer].Netformx/multiple_crcl_2012.htm GFR/1.73 sq M predicted among non-blacks MDRD (S/P/Bld) [Vol rate/Area]NOT REPORTEDMercy Health Allen Hospital, KYGlucose [Mass/Vol]87 mg/dL70 - 99 mg/dLMercy Health Allen Hospital, KYInterpretation and review of laboratory resultsAbnormalMercy Health Allen Hospital, KYPotassium [Moles/Vol]3.7 mmol/L3.7 - 5.3 mmol/LMGood Samaritan Hospital, KYSodium [Moles/Vol]135 mmol/L135 - 144 mmol/LMGood Samaritan Hospital, KYUrea nitrogen [Mass/Vol]14 mg/dL8 - 23 mg/dLMercy Health Allen Hospital, KYCBC auto differentialon 85-60-6634Avffuaofk (Bld) [#/Vol]0.04 10*3/[facility], KYBasophils/100 WBC (Bld)0 %0 - 2 %[facility], KYDifferential TypeNOT REPORTEDMercy Health Allen Hospital, KYEosinophils (Bld) [#/Vol]0.10 10*3/[facility], [place] Eosinophils/100 WBC (Bld)1 %1 - 4 %[facility], KYErythrocyte distribution width (RBC) [Ratio]14.6 %High11.8 - 14.4 %[facility], KYHematocrit (Bld) [Volume fraction]40.2 %36.3 - 47.1 %[facility], KYHemoglobin (Bld) [Mass/Vol]12.6 g/dL11.9 - 15.1 g/dLMercy Health Allen Hospital, KYImmature granulocytes (Bld) [#/Vol]0.08 10*3/[facility], KYImmature granulocytes (Bld) [#/Vol] 1 %Xhgf8ResovMercy Health Allen Hospital, KYInterpretation and review of laboratory results AbnormalMercy Health Allen Hospital, KYLymphocytes (Bld) [#/Vol]3.05 10*3/[facility] [place], KYLymphocytes/100 WBC (Bld)32 %24 - 43 %[facility], KYMCH (RBC) [Entitic mass]29.0 pg25.2 - 33.5 pgMercy Health Allen Hospital, KYMCHC (RBC) [Mass/Vol]31.3 g/dL28.4 - 34.8 g/dLMercy Health Allen Hospital, KYMCV (RBC) [Entitic vol]92.4 fL82.6 - 102.9 fLMercy Health Allen Hospital, KYMonocytes (Bld) [#/Vol]0.76 10*3/uLWayne Hospital [place], KYMonocytes/100 WBC (Bld)8 %3 - 12 %[facility], KYPlatelet mean volume (Bld) [Entitic vol]10.6 fL8.1 - 13.5 fLMercy Health Allen Hospital, ALPlatelets (Bld) [#/Vol]216 10*3/uLYale, KYPlatelets (Bld) [#/Vol]NOT REPORTEDYale, KYRBC (Bld) [#/Vol]4.35 10*6/uL3.95 - 5.11 m/uLMercy Health Allen Hospital, [place] RBC morphology finding Nom (Bld)ANISOCYTOSIS PRESENTYale, [place] Segmented neutrophils/100 WBC (Bld)58 %36 - 65 %[place], KYSegs Absolute5.61[place], KYWBC (Bld) [#/Vol]9.6 10*3/uLYale, [place] WBC (Bld) [#/Vol]0.0 10*3/uL0.0 per 100 WBCMercy Health Allen Hospital, ALWBC MorphologyNOT REPORTEDYale, KYCB with Diffon 23-95-3090Otx. Basophil0.04 k/uL Normal0.00-0.20[facility] HospitalComment on above:Performed By: #### CDP, CP, LIP, TROPI, LIPRF, GLYHGB #### [employer] [address] [place] [address] Die Caster: Marie Mcmanus.Imm.Granulocyte0.08 k/uLNormal0.00-0.30[facility] HospitalComment on above:Performed By: #### CDP, CP, LIP, TROPI, LIPRF, GLYHGB #### [employer] [address] [place] [address] Die Caster: Marie Mcmanus.Neutrophil (Seg)5.61 k/uLNormal1.50-8.10 [facility] HospitalComment on above:Performed By: #### CDP, CP, LIP, TROPI, LIPRF, GLYHGB #### [employer] [address] [place] [address] Die Caster: Brandon Madoff, MDBasophils/100 WBC (Bld)0 %Normal0-2MSutter Tracy Community HospitalComment on above:Performed By: #### CDP, CP, LIP, TROPI, LIPRF, GLYHGB #### [facility] [address] [place] [address] Die Caster: Brandon Anaya MDEosinophils (Bld) [#/Vol]0.10 10*3/uLNormal 0.00-0.44[facility]sburg HospitalComment on above:Performed By: #### CDP, CP, LIP, TROPI, LIPRF, GLYHGB #### [facility] [address] [place] [address] Die Caster: Brandon Anaya MDEosinophils/100 WBC (Bld)1 %Normal1-4[facility] HospitalComment on above:Performed By: #### CDP, CP, LIP, TROPI, LIPRF, GLYHGB #### [facility] [address] [place] [address] Die Caster: Brandon Anaya MDErythrocyte distribution width (RBC) [Ratio]14.6 %High11.8-14.4[facility] Perry[facility] HospitalComment on above:Performed By: #### CDP, CP, LIP, TROPI, LIPRF, GLYHGB #### [facility] [address] [place] [address] Die Caster: Brandon Anaya MDHematocrit (Bld) [Volume fraction]40.2 %Normal 36.3-47.1MSutter Tracy Community HospitalComment on above:Performed By: #### CDP, CP, LIP, TROPI, LIPRF, GLYHGB #### [facility] [address] [place] [address] Die Caster: Brandon Anaya MDHemoglobin (Bld) [Mass/Vol]12.6 g/dLNormal 11.9-15.1MSutter Tracy Community HospitalComment on above:Performed By: #### CDP, CP, LIP, TROPI, LIPRF, GLYHGB #### [facility] [address] [place] [address] Die Caster: Brandon Anaya MDImmature granulocytes (Bld) [#/Vol]1 %Wxvb8NuzibMercy Health Perrysburg HospitalComment on above:Performed By: #### CDP, CP, LIP, TROPI, LIPRF, GLYHGB #### [facility] [address] [place] [address] Die Caster: Kortney Mcmanusmphocytes (Bld) [#/Vol]3.05 10*3/uLNormal 1.10-3.70[facility] HospitalComment on above:Performed By: #### CDP, CP, LIP, TROPI, LIPRF, GLYHGB #### [facility] [address] [place] [address] Die Caster: Luiza Mcmanushocytes/100 WBC (Bld)32 %Bscpds79-70MuyhhMercy Health Perrysburg HospitalComment on above:Performed By: #### CDP, CP, LIP, TROPI, LIPRF, GLYHGB #### [facility] [address] [place] [address] Die Caster: LIZZY McmanusCH (RBC) [Entitic mass]29.0 ijUrwbke56.2-33.5 [facility] HospitalComment on above:Performed By: #### CDP, CP, LIP, TROPI, LIPRF, GLYHGB #### [facility] [address] [place] [address] Die Caster: STFEFANIE McmanusC (RBC) [Mass/Vol]31.3 g/dZMnkccf82.4-34.8 [facility] HospitalComment on above:Performed By: #### CDP, CP, LIP, TROPI, LIPRF, GLYHGB #### [address] [address] Die Caster: LIZZY McmanusCV (RBC) [Entitic vol]92.4 qQFrkogk08.6-102.9 [facility] HospitalComment on above:Performed By: #### CDP, CP, LIP, TROPI, LIPRF, GLYHGB #### [place] [address] Die Caster: LIZZY Mcmanusonocytes (Bld) [#/Vol]0.76 10*3/uLNormal 0.10-1.20[facility] HospitalComment on above:Performed By: #### CDP, CP, LIP, TROPI, LIPRF, GLYHGB #### [place] [address] Die Caster: LIZZY Mcmanusonocytes/100 WBC (Bld)8 %Normal3-12[facility] HospitalComment on above:Performed By: #### CDP, CP, LIP, TROPI, LIPRF, GLYHGB #### [place] [address] Die Caster: Modesta Mcmanusophil (Seg)58 %Bnlpaw75-40QakpuMercy Health Perrysburg HospitalComment on above:Performed By: #### CDP, CP, LIP, TROPI, LIPRF, GLYHGB #### [place] [address] Die Caster: Brandon Anaya MDNRBC Automated0.0 per 100 WBCNormal0.0[facility] HospitalComment on above:Performed By: #### CDP, CP, LIP, TROPI, LIPRF, GLYHGB #### [facility] [address] [place] [address] Die Caster: BLADIMIR Mcmanuslatelet mean volume (Bld) [Entitic vol]10.6 fL Normal8.1-13.5[facility] HospitalComment on above:Performed By: #### CDP, CP, LIP, TROPI, LIPRF, GLYHGB #### [facility] [address] [place] [address] Die Caster: Geremias Mcmanustelets (Bld) [#/Vol]216 10*3/pJDlbrgw550-257 [facility] HospitalComment on above:Performed By: #### CDP, CP, LIP, TROPI, LIPRF, GLYHGB #### [facility] [address] [place] [address] Die Caster: RICHA Mcmanus (Bld) [#/Vol]4.35 10*6/uLNormal3.95-5.11 [facility] HospitalComment on above:Performed By: #### CDP, CP, LIP, TROPI, LIPRF, GLYHGB #### [facility] [address] [place] [address] Die Caster: RICHA Mcmanus morphology finding Nom (Bld)ANISOCYTOSIS Mercy Medical CenterComment on above:Performed By: #### CDP, CP, LIP, TROPI, LIPRF, GLYHGB #### [facility] [address] [place] [address] Die Caster: LUCIAN Mcmanus (Bld) [#/Vol]9.6 10*3/uLNormal3.5-11.3MSutter Tracy Community HospitalComment on above:Performed By: #### CDP, CP, LIP, TROPI, LIPRF, GLYHGB #### [facility] [address] [place] [address] Die Caster: Gustabo Mcmanus Diff PerformedNOT REPORTEDFulton County Health CenterComment on above:Performed By: #### CDP, CP, LIP, TROPI, LIPRF, GLYHGB #### [facility] [address] [place] [address] Die Caster: Bon Mcmanus (Adalberto) [#/Vol]NOT REPORTEDFulton County Health CenterComment on above:Performed By: #### CDP, CP, LIP, TROPI, LIPRF, GLYHGB #### [facility] [address] [place] [address] Die Caster: LUCIAN Mcmanus MorphologyNOT REPORTEDNoKettering HealthComment on above:Performed By: #### CDP, CP, LIP, TROPI, LIPRF, GLYHGB #### [facility] [address] [place] [address] Die Caster: WENDY Mcmanus LUMBAR SPINE W WO CONTRASTon [id number] LUMBAR SPINE W WO CONTRASTEXAMINATION: MRI OF [...] Signed by: Ryan Lindsay MD 10/15/19 Final resultNormTriHealthPO Glucose Fingerstickon [id number] [Mass/Vol]98 mg/dL65 - 105 mg/dLMercy Health Allen Hospital, KYGlucose [Mass/Vol]107 mg/gSQfep57 - 105 mg/dLMercy Health Allen Hospital, KYInterpretation and review of laboratory resultsAbnormalMercy Health Allen Hospital, KYGlucose [Mass/Vol]81 mg/dL65 - 105 mg/dLMercy Health Allen Hospital, KYURINALYSIS WITH MICROSCOPICon 10-16-2019 Amorphous, UANOT REPORTEDNoneMeSuburban Community [facility] & [facility]- [place], KYBacteria, UAMODERATEAbnormal NoneCommunity [facility]- [place], KYBilirubin UrineNegativeNEGATIVECommunity Regional Medical Center- [place], KYCasts UA0 TO 2 HYALINE Reference range defined for non-centrifuged specimen.[facility] [place], KYColor, UAYELLOWYELLOWCommunity Regional Medical Center- [place], KYCrystals, UANOT REPORTED None /HPFMerCoulee Medical Center- [place], KYEpithelial Cells UA0 TO 2[facility]- [place], [place] Glucose, UrNegativeNEGATIVECleveland Clinic [facility]ucl[facility] Hospitalcy Health- [place], KYInterpretation and review of laboratory resultsAbnormalMercy Health- [place], KYKetones Ql (U)SMALLAbnormal NEGATIVEMer Health- [place], KYLeukocyte esterase Test strip Ql (U)NegativeNEGATIVE [facility]- [place], KYMucus, UANOT REPORTEDNoneMey Health- [place], KYNitrite, Urine NegativeNEGATIVECleveland Clinic [facility]- [place], KYOther Observations UANOT REPORTEDNOT REQ. [facility]- [place], KYpH, UA8.0[facility]- [place], KYProtein (U) [Mass/Vol]Negative NEGATIVECleveland Clinic [facility] Health- [place], KYRBC (U) [#/Vol]2 TO 5[facility]- [place], KYComment on above:Reference range defined for non-centrifuged specimen.Renal Epithelial, UA NOT REPORTED0 /HPFCleveland Clinic Medina Hospital Health- [place], KYSpecific [place], UA1.006[facility]- [place], KYTrichomonas, UANOT REPORTEDNoneMey Health- [place], KYTurbidity UACLOUDYAbnormal CLEARCleveland Clinic Medina Hospital Health- [place], KYUrine HgbNegativeNEGATIVECleveland Clinic [facility] Health- [place], [place] Urobilinogen, UrineNormalNormalC[facility]- [place], KYWBC, UA0 TO 2Mfayette county memorial hospitaly Health- [place], KYYeast, UANOT REPORTEDNoneMey Health- [place], [place]-[facility]- [place], [place] Urinalysis w/ Microon 10-16-2019-----NormalMercy Health Perrysburg Hospital Comment on above:Performed By: #### CDP, CP, LIP, TROPI, LIPRF, GLYHGB #### [facility] [place] [address] Die Caster: Rafi Mcmanustoacetic Acid,UrSMALLAbnormalNEGMercy Health Perrysburg HospitalComment on above:Performed By: #### CDP, CP, LIP, TROPI, LIPRF, GLYHGB #### [employer] [facility] [place], [place] [id number] Die Caster: Brandon Madoff, MDBacteria LM.HPF (Urine sed) [#/Area]MODERATE AbnormalNONEMercy John George Psychiatric PavilionComment on above:Performed By: #### CDP, CP, LIP, TROPI, LIPRF, GLYHGB #### [facility] [address] [place] [address] Die Caster: Brandon Anaya MDBilirubin, SemiQt,UrNegativeNormalNEGMercy Health Perrysburg HospitalComment on above:Performed By: #### CDP, CP, LIP, TROPI, LIPRF, GLYHGB #### [facility] [address] [place] [address] Die Caster: NEHAL Mcmanusasts LM.LPF (Urine sed) [#/Area]0 TO 2 HYALINE Normal0-8[facility] HospitalComment on above:Result Comment: Reference range defined for non-centrifuged specimen.Performed By: #### CDP, CP, LIP, TROPI, LIPRF, GLYHGB #### [facility] [address] [place] [address] Die Caster: NEHAL Mcmanusolor (U)YELLOWNormalYELMerSutter California Pacific Medical CenterComment on above:Performed By: #### CDP, CP, LIP, TROPI, LIPRF, GLYHGB #### [facility] [address] [place] [address] Die Caster: Brandon Anaya MDEpithelial cells LM.HPF (Urine sed) [#/Area]0 TO 3Pyvguy7-4FputhMercy Health Perrysburg HospitalComment on above:Performed By: #### CDP, CP, LIP, TROPI, LIPRF, GLYHGB #### [facility] [address] [place] [address] Die Caster: Brandon Anaya MDGlucose Ql (U)NegativeNormalNEGMercy Health Perrysburg HospitalComment on above:Performed By: #### CDP, CP, LIP, TROPI, LIPRF, GLYHGB #### [facility] [address] [place] [address] Die Caster: Brandon Anaya MDHemoglobin, UrNegativeNormalNEGMercy Health Perrysburg HospitalComment on above:Performed By: #### CDP, CP, LIP, TROPI, LIPRF, GLYHGB #### [facility] [address] [place] [address] Die Caster: Brandon Anaya MDLeukocyte esterase Test strip Ql (U)Negative NormalNEGMercy Health Perrysburg HospitalComment on above:Performed By: #### CDP, CP, LIP, TROPI, LIPRF, GLYHGB #### [facility] [address] [place] [address] Die Caster: Brandon Anaya MDNitrite,UrNegativeFreeman Cancer InstitutealCleveland Clinic Mentor HospitalComment on above:Performed By: #### CDP, CP, LIP, TROPI, LIPRF, GLYHGB #### [address] [address] Die Caster: Brandon Anaya [facility] (U)8.0 [pH]Normal5.0-8.0[facility] HospitalComment on above:Performed By: #### CDP, CP, LIP, TROPI, LIPRF, GLYHGB #### [address] [address] Die Caster: BLADIMIR Mcmanusrotein Ql (U)NegativeNormalNEGMercy Health Perrysburg HospitalComment on above:Performed By: #### CDP, CP, LIP, TROPI, LIPRF, GLYHGB #### [facility] [address] [place] [address] Die Caster: Brandon Anaya MDRBC (U) [#/Vol]2 TO 1Pelsxj4-9WhemtMercy Health Perrysburg HospitalComment on above:Result Comment: Reference range defined for non- centrifuged specimen.Performed By: #### CDP, CP, LIP, TROPI, LIPRF, GLYHGB #### [facility] [address] [place] [address] Die Caster: FABIANA Mcmanuspecific gravity (U) [Rel density]1.006Normal 1.005-1.030[facility] HospitalComment on above:Performed By: #### CDP, CP, LIP, TROPI, LIPRF, GLYHGB #### [facility] [address] [place] [address] Die Caster: GODWIN McmanusurbidityCLOUDYAbnormalCLEARMercy Health Perrysburg HospitalComment on above:Performed By: #### CDP, CP, LIP, TROPI, LIPRF, GLYHGB #### [facility] [address] [place] [address] Die Caster: Carrie Mcmanusbilino,UrNormalNormalNOCentervilleComment on above:Performed By: #### CDP, CP, LIP, TROPI, LIPRF, GLYHGB #### [facility] [address] [place] [address] Die Caster: Brandon Anaya MDWBC (U) [#/Vol]0 TO 1Gkhemz5-0UtgjfMercy Health Perrysburg HospitalComment on above:Performed By: #### CDP, CP, LIP, TROPI, LIPRF, GLYHGB #### [facility] [address] [place] [address] Die Caster: Brandon Anaya MDAmorphous sediment LM Ql (Urine sed)NOT REPORTED NormalNONEMercKaiser Foundation HospitalComment on above:Performed By: #### CDP, CP, LIP, TROPI, LIPRF, GLYHGB #### [facility] [address] [place] [address] Die Caster: Manjula Mcmanusstdamien LM Nom (Urine sed)NOT REPORTEDNormal NONEMercy Health Perrysburg HospitalComment on above:Performed By: #### CDP, CP, LIP, TROPI, LIPRF, GLYHGB #### [facility] [address] [place] [address] Die Caster: Brandon Anaya MDEpithelial, RenalNOT FGCGUPSCKusmsy3CmwpeMercy Health Perrysburg HospitalComment on above:Performed By: #### CDP, CP, LIP, TROPI, LIPRF, GLYHGB #### [facility] [address] [place] [address] Die Caster: Raquel Mcmanusus StrandsNOT REPORTEDNormalNONEMeMotion Picture & Television HospitalComment on above:Performed By: #### CDP, CP, LIP, TROPI, LIPRF, GLYHGB #### [facility] [address] [place] [address] Die Caster: Brandon Anaya MDOther ObservationsNOT REPORTEDNormalNREQMercy Health Perrysburg HospitalComment on above:Performed By: #### CDP, CP, LIP, TROPI, LIPRF, GLYHGB #### [facility] [address] [place] [address] Die Caster: Grant McmanushomonasNOT REPORTEDNormalNONWood County HospitalComment on above:Performed By: #### CDP, CP, LIP, TROPI, LIPRF, GLYHGB #### [facility] [address] [place] [address] Die Caster: Brandon Anaya MDYeast LM Ql (Urine sed)NOT REPORTEDNormalNONE [facility] HospitalComment on above:Performed By: #### CDP, CP, LIP, TROPI, LIPRF, GLYHGB #### [facility] [address] [place] [address] Die Caster: Josh Mcmanus Metab w/rfx MGon 10-15-2019(cont.)Normal [facility] HospitalComment on above:Result Comment: Average GFR for 70 or more years old: 75 mL/min/1.73sq m Chronic Kidney Disease: <60 mL/min/1.73sq m Kidney failure: <15 mL/min/1.73sq m eGFR calculated using average adult body mass. Additional eGFR calculator available at: http://www.[employer].Netformx/multiple_crcl_2012.htmPerformed By: #### CDP, CP, LIP, TROPI, LIPRF, GLYHGB #### [facility] [address] [place] [address] Die Caster: Brandon Anaya MDAnion gap [Moles/Vol]14 mmol/LNormal9-17[facility] HospitalComment on above:Performed By: #### CDP, CP, LIP, TROPI, LIPRF, GLYHGB #### [employer] [address] [place] [address] Die Caster: Brandon Anaya MDCalcium [Mass/Vol]8.8 mg/dLNormal8.6-10.4[facility] HospitalComment on above:Performed By: #### CDP, CP, LIP, TROPI, LIPRF, GLYHGB #### [facility] [address] [place] [address] Die Caster: Brandon Anaya MDChloride [Moles/Vol]94 mmol/JQav39-139WoofkMercy Health Perrysburg HospitalComment on above:Performed By: #### CDP, CP, LIP, TROPI, LIPRF, GLYHGB #### [facility] [address] [place] [address] Die Caster: Brandon Anaya MDCO2 [Moles/Vol]23 mmol/KJkfodw56-54SxrwyMercy Health Perrysburg HospitalComment on above:Performed By: #### CDP, CP, LIP, TROPI, LIPRF, GLYHGB #### [facility] [address] [place] [address] Die Caster: NEHAL Mcmanusreatinine [Mass/Vol]0.36 mg/dLLow0.50-0.90[facility] HospitalComment on above:Performed By: #### CDP, CP, LIP, TROPI, LIPRF, GLYHGB #### [place] [address] Die Caster: Brandon Anaya MDGFR, Amer>60Normal>60[facility] HospitalComment on above:Performed By: #### CDP, CP, LIP, TROPI, LIPRF, GLYHGB #### [place] [address] Die Caster: CAROLYN Mcmanus,non Amer>60Normal>60[facility] HospitalComment on above:Performed By: #### CDP, CP, LIP, TROPI, LIPRF, GLYHGB #### [place] [address] Die Caster: Brandon Anaya MDGlucose [Mass/Vol]89 mg/cUYqnizy55-03NyzshSutter Tracy Community HospitalComment on above:Performed By: #### CDP, CP, LIP, TROPI, LIPRF, GLYHGB #### [place] [address] Die Caster: BLADIMIR Mcmanusotassium [Moles/Vol]3.7 mmol/LNormal3.7-5.3 [facility] HospitalComment on above:Performed By: #### CDP, CP, LIP, TROPI, LIPRF, GLYHGB #### [place] [address] Die Caster: FABIANA Mcmanusodium [Moles/Vol]131 mmol/BJvz039-435ZfrzpMercy Health Perrysburg HospitalComment on above:Performed By: #### CDP, CP, LIP, TROPI, LIPRF, GLYHGB #### [facility] [address] [place] [address] Die Caster: Brandon Anaya MDUrea nitrogen [Mass/Vol]16 mg/dLNormal8-23[facility] HospitalComment on above:Performed By: #### CDP, CP, LIP, TROPI, LIPRF, GLYHGB #### [facility] [address] [place] [address] Die Caster: Brandon Anaya MDBUN/CRE RatioNOT REPORTEDNormal9-20[facility] HospitalComment on above:Performed By: #### CDP, CP, LIP, TROPI, LIPRF, GLYHGB #### [facility] [address] [place] [address] Die Caster: FABIANA Mcmanustaging:NOT REPORTEDNormalMercy Health Perrysburg HospitalComment on above:Performed By: #### CDP, CP, LIP, TROPI, LIPRF, GLYHGB #### [facility] [address] [place] [address] Die Caster: Josh Mcmanus Metabolic Panel w/ Reflex to MGon 72-10-2006Fkpmd gap [Moles/Vol]14 mmol/L9 - 17 mmol/LMercy Health- [...] among non-blacks MDRD (S/P/Bld) [Vol rate/Area][facility], KYComment on above:Average GFR for 70 or more years old: 75 mL/min/1.73sq m Chronic Kidney Disease: <60 mL/min/1.73sq m Kidney failure: <15 mL/min/1.73sq m eGFR calculated using average adult body mass. Additional eGFR calculator available at: http://www.[employer]/multiple_crcl_2012.htm GFR/1.73 sq M predicted among non-blacks MDRD (S/P/Bld) [Vol rate/Area]NOT REPORTEDMercy Health Allen Hospital, KYGlucose [Mass/Vol]89 mg/dL70 - 99 mg/dLMercy Health Allen Hospital, KYInterpretation and review of laboratory resultsAbnormalMercy Health Allen Hospital, KYPotassium [Moles/Vol]3.7 mmol/L3.7 - 5.3 mmol/LMGood Samaritan Hospital, KYSodium [Moles/Vol]131 mmol/ODdw597 - 144 mmol/LMGood Samaritan Hospital, KYUrea nitrogen [Mass/Vol]16 mg/dL8 - 23 mg/dLMercy Health Allen Hospital, KYCBC auto differentialon [id number] (Bld) [#/Vol]0.06 10*3/uLMercy Health Allen Hospital, KYBasophils/100 WBC (Bld)1 %0 - 2 %[facility], KYDifferential TypeNOT REPORTEDMercy Health Allen Hospital, KYEosinophils (Bld) [#/Vol]0.13 10*3/uLMercy Health Allen Hospital, [place] Eosinophils/100 WBC (Bld)1 %1 - 4 %[facility], KYErythrocyte distribution width (RBC) [Ratio]14.6 %High11.8 - 14.4 %[facility], KYHematocrit (Bld) [Volume fraction]41.6 %36.3 - 47.1 %[facility], KYHemoglobin (Bld) [Mass/Vol]13.4 g/dL11.9 - 15.1 g/dLMercy Health Allen Hospital, KYImmature granulocytes (Bld) [#/Vol]1 %Hurf1CpmmiMercy Health Allen Hospital, CLARAImmature granulocytes (Bld) [#/Vol]0.11 10*3/[facility] ALInterpretation and review of laboratory results AbnormalMercy Health Allen HospitalCLARALymphocytes (Bld) [#/Vol]2.56 10*3/[facility], CLARALymphocytes/100 WBC (Bld)24 %24 - 43 %[facility], [facility]ULSAH (RBC) [Entitic mass]29.3 pg25.2 - 33.5 pgMercy Health Allen Hospital, ALMCHC (RBC) [Mass/Vol]32.2 g/dL28.4 - 34.8 g/dLAdams County Regional Medical CenterV (RBC) [Entitic vol]90.8 fL82.6 - 102.9 fLMercy Health Allen HospitalCLARAMonocytes (Bld) [#/Vol]0.78 10*3/[facility], CLARAMonocytes/100 WBC (Bld)7 %3 - 12 %[facility] HospitalCLARAPlatelet mean volume (Bld) [Entitic vol]10.6 fL8.1 - 13.5 fLMercy Health Allen HospitalCLARAPlatelets (Bld) [#/Vol]NOT REPORTEDMercy Health Allen Hospital, ALPlatelets (Bld) [#/Vol]241 10*3/[facility], CLARARBC (Bld) [#/Vol]4.58 10*6/uL3.95 - 5.11 m/[facility], [place] RBC morphology finding Nom (Bld)ANISOCYTOSIS [place]ENTY[place], [place] Segmented neutrophils/100 WBC (Bld)66 %High36 - 65 %[facility], CLARASegs Absolute7.00[facility], CLARAWBC (Bld) [#/Vol]10.6 10*3/[facility], ALWBC (Bld) [#/Vol]0.0 10*3/uL0.0 per 100 WBCMercy Health Allen Hospital, ALWBC Morphology NOT REPORTEDMercy Health Allen Hospital, ALCBC with Diffon [id number]. Basophil0.06 k/uL Normal0.00-0.20[facility] HospitalComment on above:Performed By: #### CDP, CP, LIP, TROPI, LIPRF, GLYHGB #### [facility] [address] [place] [address] Die Caster: MDAbs. MariettaImm.Granulocyte0.11 k/uLNormal0.00-0.30[facility] HospitalComment on above:Performed By: #### CDP, CP, LIP, TROPI, LIPRF, GLYHGB #### [place] [address] Die Caster: Marie Mcmanus.Neutrophil (Seg)7.00 k/uLNormal1.50-8.10 [facility] HospitalComment on above:Performed By: #### CDP, CP, LIP, TROPI, LIPRF, GLYHGB #### [facility] [address] [place] [address] Die Caster: Brandon Anaya MDBasophils/100 WBC (Bld)1 %Normal0-2MSutter Tracy Community HospitalComment on above:Performed By: #### CDP, CP, LIP, TROPI, LIPRF, GLYHGB #### [facility] [address] [place] [address] Die Caster: Brandon Anaya MDEosinophils (Bld) [#/Vol]0.13 10*3/uLNormal 0.00-0.44[facility] HospitalComment on above:Performed By: #### CDP, CP, LIP, TROPI, LIPRF, GLYHGB #### [facility] [address] [place] [address] Die Caster: MAU Mcmanusosinophils/100 WBC (Bld)1 %Normal1-4[facility] HospitalComment on above:Performed By: #### CDP, CP, LIP, TROPI, LIPRF, GLYHGB #### [facility] [address] [place] [address] Die Caster: Brandon Anaya MDErythrocyte distribution width (RBC) [Ratio]14.6 %High11.8-14.4[facility] HospitalComment on above:Performed By: #### CDP, CP, LIP, TROPI, LIPRF, GLYHGB #### [address] [address] Die Caster: Brandon Anaya MDHematocrit (Bld) [Volume fraction]41.6 %Normal 36.3-47.1MSutter Tracy Community HospitalComment on above:Performed By: #### CDP, CP, LIP, TROPI, LIPRF, GLYHGB #### [place] [address] Die Caster: Brandon Anaya MDHemoglobin (Bld) [Mass/Vol]13.4 g/dLNormal 11.9-15.1MSutter Tracy Community HospitalComment on above:Performed By: #### CDP, CP, LIP, TROPI, LIPRF, GLYHGB #### [facility] [address] [place] [address] Die Caster: Brandon Anaya MDImmature granulocytes (Bld) [#/Vol]1 %Fwww2IgyvqMercy Health Perrysburg HospitalComment on above:Performed By: #### CDP, CP, LIP, TROPI, LIPRF, GLYHGB #### [facility] [address] [place] [address] Die Caster: Brandon Anaya MDLymphocytes (Bld) [#/Vol]2.56 10*3/uLNormal 1.10-3.70[facility] HospitalComment on above:Performed By: #### CDP, CP, LIP, TROPI, LIPRF, GLYHGB #### [facility] [address] [place] [address] Die Caster: Brandon Anaya MDLymphocytes/100 WBC (Bld)24 %Frvsqk66-86KqzfnMercy Health Perrysburg HospitalComment on above:Performed By: #### CDP, CP, LIP, TROPI, LIPRF, GLYHGB #### [address] [address] Die Caster: LIZZY McmanusCH (RBC) [Entitic mass]29.3 ugEunpvw59.2-33.5 [facility] HospitalComment on above:Performed By: #### CDP, CP, LIP, TROPI, LIPRF, GLYHGB #### [place] [address] Die Caster: LIZZY McmanusCHC (RBC) [Mass/Vol]32.2 g/pWUmpnpi34.4-34.8 [facility] HospitalComment on above:Performed By: #### CDP, CP, LIP, TROPI, LIPRF, GLYHGB #### [place] [address] Die Caster: LIZZY McmanusCV (RBC) [Entitic vol]90.8 pMTrlgrs51.6-102.9 [facility] HospitalComment on above:Performed By: #### CDP, CP, LIP, TROPI, LIPRF, GLYHGB #### [place] [address] Die Caster: LIZZY Mcmanusonocytes (Bld) [#/Vol]0.78 10*3/uLNormal 0.10-1.20[facility] HospitalComment on above:Performed By: #### CDP, CP, LIP, TROPI, LIPRF, GLYHGB #### [address] [address] Die Caster: Brandon Madoff, MDMonocytes/100 WBC (Bld)7 %Normal3-12[facility] HospitalComment on above:Performed By: #### CDP, CP, LIP, TROPI, LIPRF, GLYHGB #### [facility] [address] [place] [address] Die Caster: Davidson Mcmanusutrophil (Seg)66 %Txoi53-67JkykxMercy Health Perrysburg HospitalComment on above:Performed By: #### CDP, CP, LIP, TROPI, LIPRF, GLYHGB #### [facility] [address] [place] [address] Die Caster: JOSIE Mcmanus Automated0.0 per 100 WBCNormal0.0[facility] HospitalComment on above:Performed By: #### CDP, CP, LIP, TROPI, LIPRF, GLYHGB #### [facility] [address] [place] [address] Die Caster: Nadeem Mcmanus mean volume (Bld) [Entitic vol]10.6 fL Normal8.1-13.5[facility] HospitalComment on above:Performed By: #### CDP, CP, LIP, TROPI, LIPRF, GLYHGB #### [facility] [address] [place] [address] Die Caster: Bon Mcmanus (Bld) [#/Vol]241 10*3/gQWdarzr663-147 [facility] HospitalComment on above:Performed By: #### CDP, CP, LIP, TROPI, LIPRF, GLYHGB #### [facility] [address] [place] [address] Die Caster: DREW McmanusBC (Bld) [#/Vol]4.58 10*6/uLNormal3.95-5.11 [facility] HospitalComment on above:Performed By: #### CDP, CP, LIP, TROPI, LIPRF, GLYHGB #### [facility] [place] [address] Die Caster: RICHA Mcmanus morphology finding Nom (Bld)ANISOCYTOSIS PRESENTFulton County Health CenterComment on above:Performed By: #### CDP, CP, LIP, TROPI, LIPRF, GLYHGB #### [facility] [address] [place] [address] Die Caster: LUCIAN Mcmanus (Bld) [#/Vol]10.6 10*3/uLNormal3.5-11.3[facility] Psychiatric PavilionComment on above:Performed By: #### CDP, CP, LIP, TROPI, LIPRF, GLYHGB #### [facility] [address] [place] [address] Die Caster: Gustabo Mcmanus Diff PerformedNOT [facility] HospitalComment on above:Performed By: #### CDP, CP, LIP, TROPI, LIPRF, GLYHGB #### [facility] [address] [place] [address] Die Caster: Bon Mcmanus (Bld) [#/Vol]NOT REPORTEDFulton County Health CenterComment on above:Performed By: #### CDP, CP, LIP, TROPI, LIPRF, GLYHGB #### [facility] [address] [place] [address] Die Caster: LUCIAN Mcmanus MorphologyNOT REPORTEDFulton County Health CenterComment on above:Performed By: #### CDP, CP, LIP, TROPI, LIPRF, GLYHGB #### [facility] [address] [place] [address] Die Caster: WENDY Mcmanus LUMBAR SPINE W WO CONTRASTon 12-01-5269Bf compression fracture of the lumbar spine is [...] Radiol 2013; 10(10):789-794; J Vasc Surg. 2018; 67:2-77[place], [place]EXAMINATION: MRI OF THE LUMBAR SPINE WITHOUT [...] roots are intact. The neural foramina are intact.[facility]- [place], [place], [place] Incoming Radiant Results From [employer] - 10/15/2019 11:11 PM EDT EXAMINATION: MRI [...] J Vasc Surg. 2018; 67:2-77 [facility], ALMYCOPLASMA PNEUMONIAE ANTIBODY, IGMon [id number] pneumo IgM0.12<0.91[place], KYComment on above: Reference Range: <=0.90 Negative 0.91-1.09 Equivocal >=1.10 Positive Mycoplasma Ab, IgMon 03-59-2654Jvzthslvxn Ab, IgM0.12Normal<0.91[facility] HospitalComment on above:Result Comment: Reference Range: <=0.90 Negative 0.91-1.09 Equivocal >=1.10 PositivePerformed By: #### CDP, CP, LIP, TROPI, LIPRF, GLYHGB #### [facility] [address] [place], [place] [id number] Die Caster: LENORE Mcmanus Glucose Fingerstickon 91-36-5292Slflmnt [Mass/Vol]100 mg/dL65 - 105 mg/dLMercy Health Allen Hospital, KYGlucose [Mass/Vol]99 mg/dL 65 - 105 mg/dLMercy Health Allen Hospital, KYGlucose [Mass/Vol]91 mg/dL65 - 105 mg/dLMercy Health Allen Hospital, KYGlucose [Mass/Vol]95 mg/dL65 - 105 mg/dLMercy Health Allen Hospital, KYRENIN on 75-15-0209Eflos Activity0.1ng/mL/hrYale, KYComment on above: (NOTE) INTERPRETIVE INFORMATION: Renin Activity Adult, Normal sodium diet: Supine ................. 0.2-1.6 ng/mL/hr Upright ................ 0.5-4.0 ng/mL/hr Children, Normal sodium diet, Supine: [place] (1-7 days) ..... 2.0-35.0 ng/mL/hr Cord blood [...] angiotensinogen is decreased. See Compliance Statement D: [email or web address] Performed By: [facility] [address] [place] [id number] Travel Counselor: Nik Rosas MD, MS Renin CommentNOT [facility], KYRenin Activityon 17-69-6895Xvysd Activity0.1 ng/mL/hrNormTriHealthComment on above: Result Comment: (NOTE) INTERPRETIVE INFORMATION: [...] angiotensinogen is decreased. See Compliance Statement D: [email or web address] Performed By: [facility] [address] [place] [address] Travel Counselor: Nik Rosas MD, MSPerformed By: #### CDP, CP, LIP, TROPI, LIPRF, GLYHGB #### [facility] [address] [place] [address] Die Caster: Xochilt Mcmanus 97-73-3694Ijcfsrflurb0 ng/dLYale, KYComment on above:(NOTE) INTERPRETIVE INFORMATION: Aldosterone, Serum [...] reference intervals for this test in the [employer] Test Directory ([employer]). Performed By: [facility] [address] [place], [place] [id number] Travel Counselor: Nik Rosas MD, MS Aldosterone CommentNOT REPORTEDAdams County Regional Medical Center Ira 10-14-2019 Aldosterone5.0 ng/dLNoKettering HealthComment on above: Result Comment: (NOTE) INTERPRETIVE INFORMATION: [...] reference intervals for this test in the [employer] Test Directory ([employer]). Performed By: [employer] [place] [phone] Travel Counselor: Nik Rosas MD, MSPerformed By: #### CDP, CP, LIP, TROPI, LIPRF, GLYHGB #### [address] [address] Die Caster: Josh Mcmanus Metab w/rfx MGon 10-14-2019(cont.)Normal [facility] HospitalComment on above:Result Comment: Average GFR for 70 or more years old: 75 mL/min/1.73sq m Chronic Kidney Disease: <60 mL/min/1.73sq m Kidney failure: <15 mL/min/1.73sq m eGFR calculated using average adult body mass. Additional eGFR calculator available at: http://www.Global [employer]cess/multiple_crcl_2012.htmPerformed By: #### CDP, CP, LIP, TROPI, LIPRF, GLYHGB #### [place] [address] Die Caster: Brandon Anaya MDAnion gap [Moles/Vol]13 mmol/LNormal9-17[facility] HospitalComment on above:Performed By: #### CDP, CP, LIP, TROPI, LIPRF, GLYHGB #### [facility] [address] [place] [address] Die Caster: NEHAL Mcmanusalcium [Mass/Vol]8.5 mg/dLLow8.6-10.4[facility] HospitalComment on above:Performed By: #### CDP, CP, LIP, TROPI, LIPRF, GLYHGB #### [place] [address] Die Caster: Brandon Anaya MDChloride [Moles/Vol]91 mmol/FOly12-636ZqeftMercy Health Perrysburg HospitalComment on above:Performed By: #### CDP, CP, LIP, TROPI, LIPRF, GLYHGB #### [facility] [address] [place] [address] Die Caster: Brandon Anaya MDCO2 [Moles/Vol]26 mmol/HCryslw44-49LsvclMercy Health Perrysburg HospitalComment on above:Performed By: #### CDP, CP, LIP, TROPI, LIPRF, GLYHGB #### [address] [address] Die Caster: NEHAL Mcmanusreatinine [Mass/Vol]0.48 mg/dLLow0.50-0.90[facility] HospitalComment on above:Performed By: #### CDP, CP, LIP, TROPI, LIPRF, GLYHGB #### [place] [address] Die Caster: Brandon Anaya MDGFR, Amer>60Normal>60[facility] HospitalComment on above:Performed By: #### CDP, CP, LIP, TROPI, LIPRF, GLYHGB #### [place] [address] Die Caster: CAROLYN Mcmanus,non Amer>60Normal>60[facility] HospitalComment on above:Performed By: #### CDP, CP, LIP, TROPI, LIPRF, GLYHGB #### [place] [address] Die Caster: Brandon Anaya MDGlucose [Mass/Vol]104 mg/hRJixf99-59CdgucSutter Tracy Community HospitalComment on above:Performed By: #### CDP, CP, LIP, TROPI, LIPRF, GLYHGB #### [place] [address] Die Caster: BLADIMIR Mcmanusotassium [Moles/Vol]3.7 mmol/LNormal3.7-5.3 [facility] HospitalComment on above:Performed By: #### CDP, CP, LIP, TROPI, LIPRF, GLYHGB #### [address] [address] Die Caster: FABIANA Mcmanusodium [Moles/Vol]130 mmol/HXjj647-767UzwzoMercy Health Perrysburg HospitalComment on above:Performed By: #### CDP, CP, LIP, TROPI, LIPRF, GLYHGB #### [facility] [address] [place] [address] Die Caster: Brandon Anaya MDUrea nitrogen [Mass/Vol]19 mg/dLNormal8-23[facility] HospitalComment on above:Performed By: #### CDP, CP, LIP, TROPI, LIPRF, GLYHGB #### [facility] [address] [place] [address] Die Caster: BAUDILIO McmanusN/CRE RatioNOT REPORTEDNormal9-20[facility] HospitalComment on above:Performed By: #### CDP, CP, LIP, TROPI, LIPRF, GLYHGB #### [facility] [address] [place] [id number] Die Caster: FABIANA Mcmanustaging:NOT REPORTEDNormalMercy Health Perrysburg HospitalComment on above:Performed By: #### CDP, CP, LIP, TROPI, LIPRF, GLYHGB #### [facility] [place] [address] Die Caster: Josh Mcmanus Metabolic Panel w/ Reflex to MGon 68-25-8812Kugsl gap [Moles/Vol]13 mmol/L9 - 17 mmol/LMercy Health- [place], KYBun/Cre RatioNOT REPORTEDMer Health- [place], KYCalcium [Mass/Vol]8.5 mg/dLLow8.6 - 10.4 mg/dLMercy Health- [place], KYChloride [Moles/Vol]91 mmol/LLow98 - 107 mmol/LMercy Health- [place], KYCO2 [Moles/Vol]26 mmol/L20 - 31 mmol/LMercy Health- [place], [place] Creatinine [Mass/Vol]0.48 mg/dLLow0.5 - 0.9 mg/dLMercy Health- [place], KYGFR >60>60 mL/minMercy Health- [place], KYGFR Non->60>60 mL/min [facility], KYGFR/1.73 sq M predicted among non-blacks MDRD (S/P/Bld) [Vol rate/Area][facility], CLARAComment on above:Average GFR for 70 or more years old: 75 mL/min/1.73sq m Chronic Kidney Disease: <60 mL/min/1.73sq m Kidney failure: <15 mL/min/1.73sq m eGFR calculated using average adult body mass. Additional eGFR calculator available at: http://www.[employer]/multiple_crcl_2012.htm GFR/1.73 sq M predicted among non-blacks MDRD (S/P/Bld) [Vol rate/Area]NOT REPORTEDMer[facility] Health [facility] Hospital, CLARAGlucose [Mass/Vol]104 mg/kLLsiu89 - 99 mg/dLMercy Health Allen Hospital, ALInterpretation and review of laboratory resultsAbnormalMercy Health [facility] Hospital, KYPotassium [Moles/Vol]3.7 mmol/L3.7 - 5.3 mmol/LMGood Samaritan [facility], KYSodium [Moles/Vol]130 mmol/FTvt231 - 144 mmol/LMGood Samaritan Hospital, KYUrea nitrogen [Mass/Vol]19 mg/dL8 - 23 mg/dLMercy Health Allen Hospital, CLARACBC auto differential on [id number] Lymphocytes3 %[facility], ALAtypical Lymphocytes Absolute0.30k/[facility], CLARABasophils (Bld) [#/Vol]0.00 10*3/[facility], KYBasophils/100 WBC (Bld)0 %0 - 2 %[facility], CLARADifferential TypeNOT REPORTEDMercy Health [facility] Hospital, KYEosinophils (Bld) [#/Vol]0.10 10*3/[facility], KYEosinophils/100 WBC (Bld)1 %1 - 4 %[facility], ALErythrocyte distribution width (RBC) [Ratio]14.7 %High11.8 - 14.4 %[facility], [place] Hematocrit (Bld) [Volume fraction]39.5 %36.3 - 47.1 %[facility], CLARA Hemoglobin (Bld) [Mass/Vol]12.9 g/dL11.9 - 15.1 g/dLWayne Hospital [place], CLARAImmature granulocytes (Bld) [#/Vol]0.10 10*3/[facility]- [place], KYImmature granulocytes (Bld) [#/Vol]1 %Uwvu4QqbhwMercy Health [facility] Hospital, ALInterpretation and review of laboratory resultsAbnormalMercy Health [facility] Hospital, KYLymphocytes (Bld) [#/Vol]2.80 10*3/[facility]- [place], CLARALymphocytes/100 WBC (Bld)28 %24 - 44 %[facility], ALMCH (RBC) [Entitic mass]29.5 pg25.2 - 33.5 pgMercy Health Allen Hospital, ALMCHC (RBC) [Mass/Vol]32.7 g/dL28.4 - 34.8 g/dLMercy Health Allen Hospital, ALMCV (RBC) [Entitic vol]90.2 fL82.6 - 102.9 fLMercy Health Allen Hospital, CLARAMonocytes (Bld) [#/Vol]0.50 10*3/[facility]- [place], CLARAMonocytes/100 WBC (Bld)5 %1 - 7 %[facility], CLARA Morphology Alfredo (Bld) [Interp]ANISOCYTOSIS PRESENTMercy Health Allen Hospital, CLARAPlatelet mean volume (Bld) [Entitic vol]10.1 fL8.1 - 13.5 fLWayne Hospital [place], KYPlatelets (Bld) [#/Vol]190 10*3/[facility]- [place], KYPlatelets (Bld) [#/Vol]NOT REPORTED [facility], ALRBC (Bld) [#/Vol]4.38 10*6/uL3.95 - 5.11 m/[facility]- [place], ALRBC morphology finding Nom (Bld)NOT REPORTEDMercy Health Allen Hospital, ALSegmented neutrophils/100 WBC (Bld)62 %36 - 66 %[facility], CLARASegs Absolute6.20[facility] (Bld) [#/Vol]10.0 10*3/uLOhioHealth [facility] Hospital (Bld) [#/Vol]0.0 10*3/uL0.0 per 100 WBCOhioHealth Dublin Methodist Hospital MorphologyNOT REPORTED [facility] with Diffon [id number]. Atypical Lymphs0.30 k/uL [facility] CenterComment on above:Performed By: #### CDP, CP, LIP, TROPI, LIPRF, GLYHGB #### [facility] [address] [place] [address] Die Caster: Marie Mcmanus. Basophil0.00 k/uLNormal0.0-0.2MSutter Tracy Community HospitalComment on above:Performed By: #### CDP, CP, LIP, TROPI, LIPRF, GLYHGB #### [facility] [address] [place] [address] Die Caster: MDAbs. MariettaImm.Granulocyte0.10 k/uLNormal0.00-0.30[facility] HospitalComment on above:Performed By: #### CDP, CP, LIP, TROPI, LIPRF, GLYHGB #### [facility] [address] [place] [address] Die Caster: Marie Mcmanus.Neutrophil (Seg)6.20 k/uLNormal1.8-7.7[facility] HospitalComment on above:Performed By: #### CDP, CP, LIP, TROPI, LIPRF, GLYHGB #### [facility] [address] [place] [address] Die Caster: Barbara Mcmanusical Lymphs3 %NormalMercy Health Perrysburg HospitalComment on above:Performed By: #### CDP, CP, LIP, TROPI, LIPRF, GLYHGB #### [facility] [address] [place] [address] Die Caster: Brandon Anaya MDBasophils/100 WBC (Bld)0 %Normal0-2MSutter Tracy Community HospitalComment on above:Performed By: #### CDP, CP, LIP, TROPI, LIPRF, GLYHGB #### [facility] [address] [place] [address] Die Caster: Brandon Anaya MDEosinophils (Bld) [#/Vol]0.10 10*3/uLNormal 0.0-0.4[facility] Hospitalcy [facility] George Psychiatric PavilionComment on above:Performed By: #### CDP, CP, LIP, TROPI, LIPRF, GLYHGB #### [facility] [address] [place] [address] Die Caster: Brandon Anaya MDEosinophils/100 WBC (Bld)1 %Normal1-4[facility] HospitalComment on above:Performed By: #### CDP, CP, LIP, TROPI, LIPRF, GLYHGB #### [address] [address] Die Caster: Brandon Anaya MDImmature granulocytes (Bld) [#/Vol]1 %Ehsd0QnacsMercy Health Perrysburg HospitalComment on above:Performed By: #### CDP, CP, LIP, TROPI, LIPRF, GLYHGB #### [facility] [address] [place] [address] Die Caster: Brandon Anaya MDLymphocytes (Bld) [#/Vol]2.80 10*3/uLNormal 1.0-4.8[facility] HospitalComment on above:Performed By: #### CDP, CP, LIP, TROPI, LIPRF, GLYHGB #### [facility] [address] [place] [address] Die Caster: Kortney Mcmanusmphocytes/100 WBC (Bld)28 %Kiztzw15-17Kqhyl [facility] Medical CenterComment on above:Performed By: #### CDP, CP, LIP, TROPI, LIPRF, GLYHGB #### [address] [address] Die Caster: Brandon Anaya MDMonocytes (Bld) [#/Vol]0.50 10*3/uLNormal0.1-0.8 [facility] HospitalComment on above:Performed By: #### CDP, CP, LIP, TROPI, LIPRF, GLYHGB #### [address] [address] Die Caster: Brandon Anaya MDMonocytes/100 WBC (Bld)5 %Normal1-7[facility] HospitalComment on above:Performed By: #### CDP, CP, LIP, TROPI, LIPRF, GLYHGB #### [facility] [address] [place] [address] Die Caster: Brandon Anaya MDMorphology Alfredo (Bld) [Interp]ANISOCYTOSIS PRESENTNormalMercy Health Perrysburg HospitalComment on above:Performed By: #### CDP, CP, LIP, TROPI, LIPRF, GLYHGB #### [facility] [address] [place] [address] Die Caster: Brandon Anaya MDNeutrophil (Seg)62 %Dsqcpc38-79UsvzrMercy Health Perrysburg HospitalComment on above:Performed By: #### CDP, CP, LIP, TROPI, LIPRF, GLYHGB #### [facility] [address] [place] [address] Die Caster: Brandon Anaya MDErythrocyte distribution width (RBC) [Ratio]14.7 %High11.8-14.4[facility] HospitalComment on above:Performed By: #### CDP, CP, LIP, TROPI, LIPRF, GLYHGB #### [address] [address] Die Caster: Brandon Anaya MDHematocrit (Bld) [Volume fraction]39.5 %Normal 36.3-47.1MSutter Tracy Community HospitalComment on above:Performed By: #### CDP, CP, LIP, TROPI, LIPRF, GLYHGB #### [address] [address] Die Caster: Brandon Anaya MDHemoglobin (Bld) [Mass/Vol]12.9 g/dLNormal 11.9-15.1MSutter Tracy Community HospitalComment on above:Performed By: #### CDP, CP, LIP, TROPI, LIPRF, GLYHGB #### [address] [address] Die Caster: LIZZY McmanusCH (RBC) [Entitic mass]29.5 dlBzlzxn88.2-33.5 [facility] HospitalComment on above:Performed By: #### CDP, CP, LIP, TROPI, LIPRF, GLYHGB #### [address] [address] Die Caster: LIZZY McmanusCHC (RBC) [Mass/Vol]32.7 g/nGYmorbw22.4-34.8 [facility] HospitalComment on above:Performed By: #### CDP, CP, LIP, TROPI, LIPRF, GLYHGB #### [address] [address] Die Caster: LIZZY McmanusCV (RBC) [Entitic vol]90.2 rPDcbtyu82.6-102.9 [facility] HospitalComment on above:Performed By: #### CDP, CP, LIP, TROPI, LIPRF, GLYHGB #### [address] [address] Die Caster: JOSIE Mcmanus Automated0.0 per 100 WBCNormal0.0[facility] HospitalComment on above:Performed By: #### CDP, CP, LIP, TROPI, LIPRF, GLYHGB #### [facility] [address] [place] [address] Die Caster: Nadeem Mcmanus mean volume (Bld) [Entitic vol]10.1 fL Normal8.1-13.5[facility] HospitalComment on above:Performed By: #### CDP, CP, LIP, TROPI, LIPRF, GLYHGB #### [address] [address] Die Caster: Bon Mcmanus (Bld) [#/Vol]190 10*3/dPRjtblp871-727 [facility] HospitalComment on above:Performed By: #### CDP, CP, LIP, TROPI, LIPRF, GLYHGB #### [facility] [address] [place] [address] Die Caster: RICHA Mcmanus (Bld) [#/Vol]4.38 10*6/uLNormal3.95-5.11 [facility] HospitalComment on above:Performed By: #### CDP, CP, LIP, TROPI, LIPRF, GLYHGB #### [facility] [address] [place] [address] Die Caster: LUCIAN Mcmanus (Bld) [#/Vol]10.0 10*3/uLNormal3.5-11.3MSutter Tracy Community HospitalComment on above:Performed By: #### CDP, CP, LIP, TROPI, LIPRF, GLYHGB #### [facility] [address] [place] [address] Die Caster: Gustabo McmanusNOT REPORTEDFreeman Cancer InstitutealMercy Health Perrysburg HospitalComment on above:Performed By: #### CDP, CP, LIP, TROPI, LIPRF, GLYHGB #### [facility] [address] [place] [address] Die Caster: BLADIMIR Mcmanuslatelets (Bld) [#/Vol]NOT REPORTEDNormalMercy Health Perrysburg HospitalComment on above:Performed By: #### CDP, CP, LIP, TROPI, LIPRF, GLYHGB #### [facility] [address] [place] [address] Die Caster: RICHA Mcmanus morphology finding Nom (Bld)NOT REPORTED [facility] Health CenterComment on above:Performed By: #### CDP, CP, LIP, TROPI, LIPRF, GLYHGB #### [facility] [address] [place] [address] Die Caster: LUCIAN Mcmanus MorphologyNOT REPORTEDNormTriHealthComment on above:Performed By: #### CDP, CP, LIP, TROPI, LIPRF, GLYHGB #### [facility] [address] [place] [address] Die Caster: DANYELL Mcmanus PLASMA FREEon 10-14-2019 Metaneph/Plasma InterTabiona, KYComment on above:(NOTE) INTERPRETIVE INFORMATION: Metanephrines, Plasma [...] should be considered. See Compliance Statement B: [email or web address] Performed By: [facility] [address] [place] [phone] Travel Counselor: Nik Rosas MD, MS Metanephrine0.14 nmol/L0 - 0.49 nmol/LMOhio Valley Hospital [place], KYNormetanephrine0.73 nmol/L0 - 0.89 nmol/LMOhio Valley Hospital [place], KYMetanephrine, Plasmaon 10-14-2019 Metaneph InterpSee NoteNormalMercy Health Perrysburg HospitalComment on above: Result Comment: (NOTE) INTERPRETIVE [...] should be considered. See Compliance Statement B: [employer] Performed By: [facility] [address] [place], [place] [phone] Travel Counselor: Nik Rosas MD, MSPerformed By: #### CDP, CP, LIP, TROPI, LIPRF, GLYHGB #### [facility] [address] [place] [address] [id number] Die Caster: LIZZY Mcmanusetanephrine0.14 nmol/LNormal0.00-0.49[facility] HospitalComment on above:Performed By: #### CDP, CP, LIP, TROPI, LIPRF, GLYHGB #### [facility] [address] [place] [address] [phone] Die Caster: Brandon Anaya MDNosharleneetanephrine0.73 nmol/LNormal0.00-0.89[facility] HospitalComment on above:Performed By: #### CDP, CP, LIP, TROPI, LIPRF, GLYHGB #### [facility] [address] [place] [address] Die Caster: BLADIMIR McmanusOC Glucose Fingerstickon 01-14-1538Itnzdie [Mass/Vol]86 mg/dL65 - 105 mg/dLMercy Health Allen Hospital, KYGlucose [Mass/Vol]105 mg/dL 65 - 105 mg/dLMercy Health Allen Hospital, KYGlucose [Mass/Vol]159 mg/oXIpnl24 - 105 mg/dL [facility], KYInterpretation and review of laboratory resultsAbnoSouthview Medical Center, KYGlucose [Mass/Vol]113 mg/iWOdde70 - 105 mg/dLMercy Health Allen Hospital, [place] Interpretation and review of laboratory resultsAbnoSouthview Medical Center, KYT. pallidum Abon 10-14-2019T. pallidum, IgGNONREACTIVENONREACTIVEMercy Health [facility] Hospital, KYComment on above: T. pallidum antibodies are not detected. There is no serological evidence of infection with T. pallidum (early primary syphilis cannot be excluded). Retest in 2-4 weeks if syphilis is clinically suspect. T.pallidum Ab Screenon 10-14-2019T.pallidum Ab ScreenNONREACTIVEParma Community General HospitalComment on above:Result Comment: T. pallidum antibodies are not detected. There is no serological evidence of infection with T. pallidum (early primary syphilis cannot be excluded). Retest in 2-4 weeks if syphilis is clinically suspect.Performed By: #### CDP, CP, LIP, TROPI, LIPRF, GLYHGB #### [facility] [address] [place] [address] Die Caster: Brandon Anaya MDAMMONIAon 09-05-1607Sznkuaj (P) [Mass/Vol]28 umol/L11 - 51 umol/LMercy [facility], KYAmmoniaon 08-12-3207Mrylyim (P) [Mass/Vol]28 umol/YTceetv80-76NisqeMercy Health Perrysburg HospitalComment on above: Performed By: #### CDP, CP, LIP, TROPI, LIPRF, GLYHGB #### [facility] [address] [place] [id number] Die Caster: MASHA Mcmanus GAS, VENOUSon 45-11-7591Pmgqt TestNOT REPORTEDMercy Health- [place], KYaPTT Coag (Bld) [Time]37.0 sMercy Health- [place], [place] Carboxyhemoglobin1.3 %0 - 5 %[facility]- [place], KYComment on above: Reference Range: Non-Smokers 0-2% Average Smoker 2-4% Heavy Smoker <10% [id number] AIRMercy Health- [place], KYHCO3, Ktkvcd28.4 mmol/L24 - 30 mmol/LMercy Health- [place], KYInterpretation and review of laboratory resultsAbnormalMercy Health- [place], KYMethemoglobinNOT REPORTED0 - 1.5 %[facility] [place], KYModeNOT REPORTEDMercy Health- [place], [place]Negative Base Excess, VenNOT REPORTED0 - 2 mmol/L [facility] [place], [place]NOTIFICATIONNOT REPORTEDMercy Health- [place], [place]NOTIFICATION TIMENOT REPORTEDMercy [facility]- [place], [place] Device/Flow/%NOT REPORTEDMercy Health- [place], KYOxygen saturation in Blood78.1 %60 - 85 %[facility]- [place], KYOxyhemoglobin NOT DNVTSDCE70 - 98 %[facility]- [place], KYpCO2, Ven42.6[facility]cy [...] REPORTED [facility]- [place], KYText for RespiratoryNOT REPORTEDCommunity [facility]- [place], [place]Total Hb NOT UICVGLSO70 - 16 g/dlCommunity Regional [facility]- [place], KYTotal RateNOT REPORTEDCommunity [facility]- [place], KYVTNOT REPORTEDCommunity [facility]- [place], KYBasic Metab w/rfx MGon 10-13-2019 Potassium [Moles/Vol]3.4 mmol/LLow3.7-5.3MSutter Tracy Community HospitalComment on above:Performed By: #### CDP, CP, LIP, TROPI, LIPRF, GLYHGB #### [employer] [address] [place] [address] Die Caster: Brandon Anyaa MD(cont.)[facility] Comment on above:Result Comment: Average GFR for 70 or more years old: 75 mL/min/1.73sq m Chronic Kidney Disease: <60 mL/min/1.73sq m Kidney failure: <15 mL/min/1.73sq m eGFR calculated using average adult body mass. Additional eGFR calculator available at: http://www.[employer].Netformx/multiple_crcl_2012.htmPerformed By: #### CDP, CP, LIP, TROPI, LIPRF, GLYHGB #### [employer] [address] [place] [address] Die Caster: James Mcmanus gap [Moles/Vol]16 mmol/LNormal9-17[facility] HospitalComment on above:Performed By: #### CDP, CP, LIP, TROPI, LIPRF, GLYHGB #### [employer] [facility] [place] [address] Die Caster: Brandon Anaya MDCalcium [Mass/Vol]9.0 mg/dLNormal8.6-10.4[facility] HospitalComment on above:Performed By: #### CDP, CP, LIP, TROPI, LIPRF, GLYHGB #### [employer] [address] [place] [address] Die Caster: NEHAL Mcmanushloride [Moles/Vol]90 mmol/OLwp36-860DrkwgMercy Health Perrysburg HospitalComment on above:Performed By: #### CDP, CP, LIP, TROPI, LIPRF, GLYHGB #### [facility] [address] [place] [address] Die Caster: Brandon Anaya MDCO2 [Moles/Vol]25 mmol/ENwmfeq03-56AsodnMercy Health Perrysburg HospitalComment on above:Performed By: #### CDP, CP, LIP, TROPI, LIPRF, GLYHGB #### [facility] [address] [place] [address] Die Caster: NEHAL Mcmanusreatinine [Mass/Vol]0.47 mg/dLLow0.50-0.90[facility] HospitalComment on above:Performed By: #### CDP, CP, LIP, TROPI, LIPRF, GLYHGB #### [facility] [address] [place] [address] Die Caster: Brandon Anaya MDGFR, Amer>60Normal>60[facility] HospitalComment on above:Performed By: #### CDP, CP, LIP, TROPI, LIPRF, GLYHGB #### [place] [address] Die Caster: Brandon Anaya MDGFR,non Amer>60Normal>60[facility] HospitalComment on above:Performed By: #### CDP, CP, LIP, TROPI, LIPRF, GLYHGB #### [facility] [address] [place] [address] Die Caster: Brandon Anaya MDGlucose [Mass/Vol]113 mg/fTZgjo54-20Wythy [facility] George Psychiatric PavilionComment on above:Performed By: #### CDP, CP, LIP, TROPI, LIPRF, GLYHGB #### [facility] [address] [place] [address] Die Caster: FABIANA Mcmanusodium [Moles/Vol]131 mmol/YAfr399-183PaugqMercy Health Perrysburg HospitalComment on above:Performed By: #### CDP, CP, LIP, TROPI, LIPRF, GLYHGB #### [facility] [address] [place] [address] Die Caster: Brandon Anaya MDUrea nitrogen [Mass/Vol]16 mg/dLNormal8-23[facility] HospitalComment on above:Performed By: #### CDP, CP, LIP, TROPI, LIPRF, GLYHGB #### [facility] [address] [place] [address] Die Caster: RADHA Mcmanus/CRE RatioNOT REPORTEDNormal9-20[facility] HospitalComment on above:Performed By: #### CDP, CP, LIP, TROPI, LIPRF, GLYHGB #### [facility] [address] [place] [address] Die Caster: FABIANA Mcmanustaging:NOT REPORTEDNormalMercy Health Perrysburg HospitalComment on above:Performed By: #### CDP, CP, LIP, TROPI, LIPRF, GLYHGB #### [facility] [address] [place] [address] Die Caster: Josh Mcmanus Metabolic Panel w/ Reflex to MGon 60-65-5602Mponw gap [Moles/Vol]16 mmol/L9 - 17 mmol/LMercy Health- [place], KYBun/Cre RatioNOT REPORTEDMer Health- [place], KYCalcium [Mass/Vol]9.0 mg/dL8.6 - 10.4 mg/dLMercy Health- [place], KYChloride [Moles/Vol]90 mmol/LLow98 - 107 mmol/LMercy Health- [place], KYCO2 [Moles/Vol]25 mmol/L20 - 31 mmol/LMercy Health- [place], [place] Creatinine [Mass/Vol]0.47 mg/dLLow0.5 - 0.9 mg/dLMercy Health Allen Hospital, KYGFR >60>60 mL/minMercy Health Allen Hospital, KYGFR Non->60>60 mL/min [facility], KYGFR/1.73 sq M predicted among non-blacks MDRD (S/P/Bld) [Vol rate/Area]NOT REPORTEDMercy Health Allen Hospital, KYGFR/1.73 sq M predicted among non- blacks MDRD (S/P/Bld) [Vol rate/Area][facility], KYComment on above: Average GFR for 70 or more years old: 75 mL/min/1.73sq m Chronic Kidney Disease: <60 mL/min/1.73sq m Kidney failure: <15 mL/min/1.73sq m eGFR calculated using average adult body mass. Additional eGFR calculator available at: http://www.Global Axcess/multiple_crcl_2011.htm Glucose [Mass/Vol]113 mg/kPOawd94 - 99 mg/dLMercy Health Allen Hospital, KYInterpretation and review of laboratory resultsAbnormalMercy Health Allen Hospital, KYPotassium [Moles/Vol]3.4 mmol/LLow3.7 - 5.3 mmol/[facility], KYSodium [Moles/Vol] 131 mmol/ZOay889 - 144 mmol/[facility], KYUrea nitrogen [Mass/Vol]16 mg/dL8 - 23 mg/dLMercy Health Allen Hospital, KYCBC auto differentialon [id number] (Bld) [#/Vol]0.07 10*3/[facility], KYBasophils/100 WBC (Bld)1 %0 - 2 % [facility], KYDifferential TypeNOT REPORTEDMercy Health Allen Hospital, KYEosinophils (Bld) [#/Vol]10*3/uLMercy Health Allen Hospital, KYEosinophils/100 WBC (Bld)0 %Low1 - 4 % [facility], KYErythrocyte distribution width (RBC) [Ratio]15.0 %High11.8 - 14.4 %[facility]- [place], KYHematocrit (Bld) [Volume fraction]45.5 %36.3 - 47.1 % [facility]- [place], KYHemoglobin (Bld) [Mass/Vol]14.5 g/dL11.9 - 15.1 g/dLCommunity Regional Medical Center- [place], KYImmature granulocytes (Bld) [#/Vol]0.14 10*3/uLCommunity Regional Medical Center- [place], KYImmature granulocytes (Bld) [#/Vol]1 %Epdf3HmllmCommunity Regional Medical Center- [place], KYInterpretation and review of laboratory resultsAbnormalCommunity Regional Medical Center- [place], KYLymphocytes (Bld) [#/Vol]2.84 10*3/uLCommunity Regional Medical Center- [place], KYLymphocytes/100 WBC (Bld)23 %Low24 - 43 % [facility]- [place], KYMCH (RBC) [Entitic mass]29.8 pg25.2 - 33.5 pgWayne Hospital [place], KYMCHC (RBC) [Mass/Vol]31.9 g/dL28.4 - 34.8 g/dLWayne Hospital [place], KYMCV (RBC) [Entitic vol]93.4 fL82.6 - 102.9 fLCommunity Regional Medical Center- [place], KYMonocytes (Bld) [#/Vol]1.22 10*3/uLHighCommunity Regional Medical Center- [place], KYMonocytes/100 WBC (Bld)10 %3 - 12 % [facility]- [place], KYPlatelet mean volume (Bld) [Entitic vol]10.5 fL8.1 - 13.5 fL [facility]- [place], KYPlatelets (Bld) [#/Vol]NOT REPORTEDCommunity [facility] Medical Center- [place], [place] Platelets (Bld) [#/Vol]210 10*3/uLCommunity Regional Medical Center- [place], KYRBC (Bld) [#/Vol]4.87 10*6/uL3.95 - 5.11 m/uLCommunity Regional Medical Center- [place], KYRBC morphology finding Nom (Bld) ANISOCYTOSIS PRESENTCommunity Regional Medical Center- [place], KYSegmented neutrophils/100 WBC (Bld)65 % 36 - 65 %[facility] Absolute8.01[facility] (Bld) [#/Vol]12.3 10*3/uLHighOhioHealth Dublin Methodist Hospital (Bld) [#/Vol]0.0 10*3/uL0.0 per 100 WBCMercy Health Allen Hospital, [facility] MorphologyNOT REPORTEDMercy Health Allen Hospital, ALCB with Diffon [id number]. Basophil0.07 k/uLNormal0.00-0.20[facility] HospitalComment on above:Performed By: #### CDP, CP, LIP, TROPI, LIPRF, GLYHGB #### [facility] [address] [place] [address] Die Caster: Marie Mcmanus.Imm.Granulocyte0.14 k/uLNormal0.00-0.30[facility] HospitalComment on above:Performed By: #### CDP, CP, LIP, TROPI, LIPRF, GLYHGB #### [employer] [address] [place] [address] 31476 Die Caster: Marie Mcmanus.Neutrophil (Seg)8.01 k/uLNormal1.50-8.10 [facility] HospitalComment on above:Performed By: #### CDP, CP, LIP, TROPI, LIPRF, GLYHGB #### [facility] [address] [place] [address]3946 Die Caster: Brandon Anaya MDBasophils/100 WBC (Bld)1 %Normal0-2MSutter Tracy Community HospitalComment on above:Performed By: #### CDP, CP, LIP, TROPI, LIPRF, GLYHGB #### [facility] [address] [place] [address]60 Die Caster: Brandon Anaya MDEosinophils (Bld) [#/Vol]10*3/uLNormal0.00-0.44 [facility] HospitalComment on above:Performed By: #### CDP, CP, LIP, TROPI, LIPRF, GLYHGB #### [facility] [address] [place] [address] Die Caster: Brandon Anaya MDEosinophils/100 WBC (Bld)0 %Low1-4[facility] HospitalComment on above:Performed By: #### CDP, CP, LIP, TROPI, LIPRF, GLYHGB #### [facility] [address] [place] [address] Die Caster: Brandon Anaya MDErythrocyte distribution width (RBC) [Ratio]15.0 %High11.8-14.4[facility] HospitalComment on above:Performed By: #### CDP, CP, LIP, TROPI, LIPRF, GLYHGB #### [facility] [address] [place] [address] Die Caster: Brandon Anaya MDHematocrit (Bld) [Volume fraction]45.5 %Normal 36.3-47.1MSutter Tracy Community HospitalComment on above:Performed By: #### CDP, CP, LIP, TROPI, LIPRF, GLYHGB #### [facility] [address] [place] [address] Die Caster: Brandon Anaya MDHemoglobin (Bld) [Mass/Vol]14.5 g/dLNormal 11.9-15.1MSutter Tracy Community HospitalComment on above:Performed By: #### CDP, CP, LIP, TROPI, LIPRF, GLYHGB #### [facility] [address] [place] [address] Die Caster: Brandon Anaya MDImmature granulocytes (Bld) [#/Vol]1 %Pwsb7OisvxMercy Health Perrysburg HospitalComment on above:Performed By: #### CDP, CP, LIP, TROPI, LIPRF, GLYHGB #### [facility] [address] [place] [address] Die Caster: Brandon Anaya MDLymphocytes (Bld) [#/Vol]2.84 10*3/uLNormal 1.10-3.70[facility] HospitalComment on above:Performed By: #### CDP, CP, LIP, TROPI, LIPRF, GLYHGB #### [address] [address] Die Caster: Kortney Mcmanusmphocytes/100 WBC (Bld)23 %Xwh93-67CizcoMercy Health Perrysburg HospitalComment on above:Performed By: #### CDP, CP, LIP, TROPI, LIPRF, GLYHGB #### [address] [address] Die Caster: LIZZY McmanusCH (RBC) [Entitic mass]29.8 pkMmvjsm21.2-33.5 [facility] HospitalComment on above:Performed By: #### CDP, CP, LIP, TROPI, LIPRF, GLYHGB #### [address] [address] Die Caster: LIZZY McmanusCHC (RBC) [Mass/Vol]31.9 g/eVUirfon37.4-34.8 [facility] HospitalComment on above:Performed By: #### CDP, CP, LIP, TROPI, LIPRF, GLYHGB #### [facility] [address] [place] [address] Die Caster: LIZZY McmanusCV (RBC) [Entitic vol]93.4 vFVjdfxq45.6-102.9 [facility] HospitalComment on above:Performed By: #### CDP, CP, LIP, TROPI, LIPRF, GLYHGB #### [facility] [address] [place] [address]87 Die Caster: Brandon Madoff, MDMonocytes (Bld) [#/Vol]1.22 10*3/uLHigh0.10-1.20 [facility] HospitalComment on above:Performed By: #### CDP, CP, LIP, TROPI, LIPRF, GLYHGB #### [address] [address] Die Caster: LIZZY Mcmanusonocytes/100 WBC (Bld)10 %Normal3-12[facility] HospitalComment on above:Performed By: #### CDP, CP, LIP, TROPI, LIPRF, GLYHGB #### [address] [address] Die Caster: Shakir Mcmanus (Seg)65 %Aavilw18-03WnlnpMercy Health Perrysburg HospitalComment on above:Performed By: #### CDP, CP, LIP, TROPI, LIPRF, GLYHGB #### [address] [address] Die Caster: Brandon Anaya MDNRBC Automated0.0 per 100 WBCNormal0.0[facility] HospitalComment on above:Performed By: #### CDP, CP, LIP, TROPI, LIPRF, GLYHGB #### [address] [address] Die Caster: Nadeem Mcmanus mean volume (Bld) [Entitic vol]10.5 fL Normal8.1-13.5[facility] HospitalComment on above:Performed By: #### CDP, CP, LIP, TROPI, LIPRF, GLYHGB #### [address] [address] Die Caster: Geremias Mcmanustemariluz (Bld) [#/Vol]210 10*3/jYKichmv296-746 [facility] HospitalComment on above:Performed By: #### CDP, CP, LIP, TROPI, LIPRF, GLYHGB #### [facility] [address] [place] [address]42 Die Caster: RICHA Mcmanus (Bld) [#/Vol]4.87 10*6/uLNormal3.95-5.11 [facility] HospitalComment on above:Performed By: #### CDP, CP, LIP, TROPI, LIPRF, GLYHGB #### [address] [address] Die Caster: RICHA Mcmanus morphology finding Nom (Bld)ANISOCYTOSIS PRESENTFulton County Health CenterComment on above:Performed By: #### CDP, CP, LIP, TROPI, LIPRF, GLYHGB #### [facility] [address] [place] [address]54 Die Caster: LUCIAN Mcmanus (Bld) [#/Vol]12.3 10*3/uLHigh3.5-11.3MSutter Tracy Community HospitalComment on above:Performed By: #### CDP, CP, LIP, TROPI, LIPRF, GLYHGB #### [facility] [address] [place] [address] Die Caster: Gustabo Mcmanus PerformedNOT REPORTEDNormalMercy Health Perrysburg HospitalComment on above:Performed By: #### CDP, CP, LIP, TROPI, LIPRF, GLYHGB #### [facility] [address] [place] [address] 23221 Die Caster: Bon Mcmanus (Bld) [#/Vol]NOT REPORTEDNormalMercy Health Perrysburg HospitalComment on above:Performed By: #### CDP, CP, LIP, TROPI, LIPRF, GLYHGB #### [facility] [address] [place] [address] 40138 Die Caster: LUCIAN Mcmanus MorphologyNOT REPORTEDFulton County Health CenterComment on above:Performed By: #### CDP, CP, LIP, TROPI, LIPRF, GLYHGB #### [employer] [address] [place] [address] [phone] Die Caster: Brandon Anaya, MDMagnesiumon 50-25-5399Rfzxpukuv [Mass/Vol]2.2 mg/dLNormal1.6-2.6Mer[facility] Psychiatric PavilionComment on above:Performed By: #### CDP, CP, LIP, TROPI, LIPRF, GLYHGB #### [employer] [address] [place] [address] [phone] Die Caster: Brandon Anaya MDMagnesium [Mass/Vol]2.2 mg/dL1.6 - 2.6 mg/dL [facility], [place] Glucose Fingerstickon 86-97-7360Xrpbaea [Mass/Vol]121 mg/vLPqxe28 - 105 mg/dLMercy Health Allen Hospital, ALInterpretation and review of laboratory resultsAbMercy Health – [facility], KYGlucose [Mass/Vol]100 mg/dL65 - 105 mg/dLMercy Health Allen Hospital, KYGlucose [Mass/Vol]104 mg/dL65 - 105 mg/dLMercy Health Allen Hospital, KYGlucose [Mass/Vol]123 mg/mHNoqh69 - 105 mg/dLMercy Health Allen Hospital, [place] Interpretation and review of laboratory resultsAbMercy Health – [facility], [place] Venous Blood Gaseson 59-62-7379Lyvj Temp.37.0[facility] County Health CenterComment on above:Performed By: #### CDP, CP, LIP, TROPI, LIPRF, GLYHGB #### [employer] [address] [place] [address] Die Caster: NEHAL Mcmanusarboxy Hgb1.3 %Normal0-5[facility] HospitalComment on above:Result Comment: Reference Range: Non-Smokers 0-2% Average Smoker 2-4% Heavy Smoker <10%Performed By: #### CDP, CP, LIP, TROPI, LIPRF, GLYHGB #### [facility] [address] [place] [address] Die Caster: Brandon Anaya MDFIO2ROOM AIRNoKettering HealthComment on above:Performed By: #### CDP, CP, LIP, TROPI, LIPRF, GLYHGB #### [address] [address] Die Caster: Brandon Anaya MDHCO3 (Bld) [Moles/Vol]28.4 mmol/AYojkuo92-49 [facility] HospitalComment on above:Performed By: #### CDP, CP, LIP, TROPI, LIPRF, GLYHGB #### [address] [address] Die Caster: Brandon Anaya MDOxygen (Bld) [Partial pressure]41.1 mm[Hg]Normal 30-50[facility] HospitalComment on above:Performed By: #### CDP, CP, LIP, TROPI, LIPRF, GLYHGB #### [address] [address] Die Caster: Brandon Anaya MDOxygen saturation in Blood78.1 %Nwyqnx74.0-85.0 [facility] HospitalComment on above:Performed By: #### CDP, CP, LIP, TROPI, LIPRF, GLYHGB #### [address] [address] Die Caster: Bladimir McmanusCO242.4Oumzgf93-50QgkgcMercy Health Perrysburg HospitalComment on above:Performed By: #### CDP, CP, LIP, TROPI, LIPRF, GLYHGB #### [address] [address] Die Caster: Bladimir Mcmanus (Bld)7.439 [pH]High7.320-7.420[facility] HospitalComment on above:Performed By: #### CDP, CP, LIP, TROPI, LIPRF, GLYHGB #### [facility] [address] [place] [address] Die Caster: BLADIMIR Mcmanusositive Base Excess4.2 mmol/LHigh0.0-2.0[facility] HospitalComment on above:Performed By: #### CDP, CP, LIP, TROPI, LIPRF, GLYHGB #### [facility] [address] [place] [address] Die Caster: Lalita Mcmanus TestNOT REPORTEDrmalMercy Health Perrysburg HospitalComment on above:Performed By: #### CDP, CP, LIP, TROPI, LIPRF, GLYHGB #### [address] [address] Die Caster: LIZZY McmanusethemoglobinNOT REPORTEDNormal0.0-1.5[facility] HospitalComment on above:Performed By: #### CDP, CP, LIP, TROPI, LIPRF, GLYHGB #### [facility] [address] [place] [address] Die Caster: LIZZY McmanusodeNOT REPORTEDrmTriHealthComment on above:Performed By: #### CDP, CP, LIP, TROPI, LIPRF, GLYHGB #### [facility] [address] [place] [address] Die Caster: Brandon Anaya MDNegative Base ExcessNOT REPORTEDNormal0.0-2.0 [facility] HospitalComment on above:Performed By: #### CDP, CP, LIP, TROPI, LIPRF, GLYHGB #### [facility] [address] [place] [address] Die Caster: rBandon Anaya MDNotification TimeNOT REPORTEDNormalMercy Health Perrysburg HospitalComment on above:Performed By: #### CDP, CP, LIP, TROPI, LIPRF, GLYHGB #### [facility] [address] [place] [address] Die Caster: Brandon Anaya MDNotification:NOT REPORTEDNormalMercy John George Psychiatric PavilionComment on above:Performed By: #### CDP, CP, LIP, TROPI, LIPRF, GLYHGB #### [facility] [address] [place] [address] Die Caster: Brandon Anaya MDO2 Device/Flow/%NOT REPORTEDNormalMercy John George Psychiatric PavilionComment on above:Performed By: #### CDP, CP, LIP, TROPI, LIPRF, GLYHGB #### [facility] [address] [place] [address] Die Caster: Brandon Anaya MDOxyhemoglobinNOT IVBTIAVRGnzqqi73.0-98.0MerSutter California Pacific Medical CenterComment on above:Performed By: #### CDP, CP, LIP, TROPI, LIPRF, GLYHGB #### [facility] [address] [place] [address] Die Caster: BLADIMIR Mcmanusco2 Adj'd for Temp.NOT QWVONPPSKlozjr12-89VcsjqSutter California Pacific Medical CenterComment on above:Performed By: #### CDP, CP, LIP, TROPI, LIPRF, GLYHGB #### [facility] [address] [place] [address] Die Caster: BLADIMIR McmanusEEP/CPAPNOT REPORTEDNormalMercy John George Psychiatric PavilionComment on above:Performed By: #### CDP, CP, LIP, TROPI, LIPRF, GLYHGB #### [facility] [address] [place] [address] Die Caster: Brandon Anaya [facility] Adjst'd for Temp.NOT REPORTEDNormal 7.320-7.420MerSutter California Pacific Medical CenterComment on above:Performed By: #### CDP, CP, LIP, TROPI, LIPRF, GLYHGB #### [facility] [address] [place] [address] Die Caster: Erin Mcmanus Adj'd for Temp.NOT QNYSTVGWKaoxif70-08LxurhMercy Health Perrysburg HospitalComment on above:Performed By: #### CDP, CP, LIP, TROPI, LIPRF, GLYHGB #### [facility] [address] [place] [address] Die Caster: MARIO McmanusVNOT REPORTEDrmalMercy Health Perrysburg HospitalComment on above:Performed By: #### CDP, CP, LIP, TROPI, LIPRF, GLYHGB #### [address] [address] Die Caster: Ashley Mcmanus. PositionNOT REPORTEDNormalMerSutter California Pacific Medical CenterComment on above:Performed By: #### CDP, CP, LIP, TROPI, LIPRF, GLYHGB #### [facility] [address] [place] [address] Die Caster: Shannan Mcmanus RateNOT REPORTEDNormalMercy Health Perrysburg HospitalComment on above:Performed By: #### CDP, CP, LIP, TROPI, LIPRF, GLYHGB #### [facility] [address] [place] [address] Die Caster: Cooper Mcmanus DrawnNOT REPORTEDNormalMercy Health Perrysburg HospitalComment on above:Performed By: #### CDP, CP, LIP, TROPI, LIPRF, GLYHGB #### [facility] [address] [place] [address] Die Caster: Irvin Mcmanust for RespiratoryNOT REPORTEDNormalMercy Health Perrysburg HospitalComment on above:Performed By: #### CDP, CP, LIP, TROPI, LIPRF, GLYHGB #### [facility] [address] [place] [address] Die Caster: Orlin Mcmanus HbNOT AHBLGEUZOidqtx67.0-16.0[facility] HospitalComment on above:Performed By: #### CDP, CP, LIP, TROPI, LIPRF, GLYHGB #### [facility] [address] [place] [address] Die Caster: Orlin Mcmanus RateNOT REPORTEDNormalMercy Health Perrysburg HospitalComment on above:Performed By: #### CDP, CP, LIP, TROPI, LIPRF, GLYHGB #### [facility] [address] [place] [address] Die Caster: ALEC Mcmanus REPORTEDrmalMercy Health Perrysburg HospitalComment on above:Performed By: #### CDP, CP, LIP, TROPI, LIPRF, GLYHGB #### [facility] [address] [place] [address] Die Caster: Kd Mcmanusosteroneana 40-12-4955Oqlaytu:NOT REPORTED [facility] CenterComment on above:Performed By: #### CDP, CP, LIP, TROPI, LIPRF, GLYHGB #### [facility] [address] [place] [address] Die Caster: Josh Mcmanus Metab w/rfx MGon 48-32-3251Dtpehhhud [Moles/Vol]3.3 mmol/LLow3.7-5.3[facility] Psychiatric PavilionComment on above: Performed By: #### CDP, CP, LIP, TROPI, LIPRF, GLYHGB #### [facility] [address] [place] [address] Die Caster: Brandon Anaya MD(cont.)[facility] Comment on above:Result Comment: Average GFR for 70 or more years old: 75 mL/min/1.73sq m Chronic Kidney Disease: <60 mL/min/1.73sq m Kidney failure: <15 mL/min/1.73sq m eGFR calculated using average adult body mass. Additional eGFR calculator available at: http://www.[employer]/multiple_crcl_2012.htmPerformed By: #### CDP, CP, LIP, TROPI, LIPRF, GLYHGB #### [facility] [address] [place] [address] Die Caster: Brandon Anaya MDAnion gap [Moles/Vol]12 mmol/LNormal9-17[facility] HospitalComment on above:Performed By: #### CDP, CP, LIP, TROPI, LIPRF, GLYHGB #### [facility] [address] [place] [address] Die Caster: NEHAL Mcmanusalcium [Mass/Vol]8.6 mg/dLNormal8.6-10.4[facility] HospitalComment on above:Performed By: #### CDP, CP, LIP, TROPI, LIPRF, GLYHGB #### [employer] [address] [place] [address] Die Caster: Brandon Anaya MDChloride [Moles/Vol]94 mmol/XAgz06-291YziqhMercy Health Perrysburg HospitalComment on above:Performed By: #### CDP, CP, LIP, TROPI, LIPRF, GLYHGB #### [employer] [address] [place] [address] Die Caster: Brandon Anaya MDCO2 [Moles/Vol]26 mmol/JLirobl96-50QajtgMercy Health Perrysburg HospitalComment on above:Performed By: #### CDP, CP, LIP, TROPI, LIPRF, GLYHGB #### [employer] [address] [place] [address] Die Caster: NEHAL Mcmanusreatinine [Mass/Vol]0.46 mg/dLLow0.50-0.90[facility] HospitalComment on above:Performed By: #### CDP, CP, LIP, TROPI, LIPRF, GLYHGB #### [address] [address] Die Caster: Brandon Anaya MDGFR, Amer>60Normal>60[facility] HospitalComment on above:Performed By: #### CDP, CP, LIP, TROPI, LIPRF, GLYHGB #### [place] [address] Die Caster: Brandon Anaya MDGFR,non Amer>60Normal>60MerSutter California Pacific Medical CenterComment on above:Performed By: #### CDP, CP, LIP, TROPI, LIPRF, GLYHGB #### [place] [address] Die Caster: Brandon Anaya MDGlucose [Mass/Vol]136 mg/tRPjkg56-73PqleoKaiser Foundation HospitalComment on above:Performed By: #### CDP, CP, LIP, TROPI, LIPRF, GLYHGB #### [place] [address] Die Caster: FABIANA Mcmanusodium [Moles/Vol]132 mmol/VExo360-498RycxlMercy Health Perrysburg HospitalComment on above:Performed By: #### CDP, CP, LIP, TROPI, LIPRF, GLYHGB #### [address] [address] Die Caster: Brandon Anaya MDUrea nitrogen [Mass/Vol]16 mg/dLNormal8-23Mer[facility] Health Perrysburg HospitalComment on above:Performed By: #### CDP, CP, LIP, TROPI, LIPRF, GLYHGB #### [facility] [address] [place] [address] [place] [id number] Die Caster: RADHA Mcmanus/CRE RatioNOT REPORTEDNormal9-20Mer[facility] Perrysburg HospitalComment on above:Performed By: #### CDP, CP, LIP, TROPI, LIPRF, GLYHGB #### [facility] [address] [place] [address] Die Caster: FABIANA Mcmanustaging:NOT REPORTEDNormalMercy Health Perrysburg HospitalComment on above:Performed By: #### CDP, CP, LIP, TROPI, LIPRF, GLYHGB #### [facility] [address] [place] [address] Die Caster: Josh Mcmanus Metabolic Panel w/ Reflex to MGon [id number] gap [Moles/Vol]12 mmol/L9 - 17 mmol/LMGood Samaritan Hospital, KYBun/Cre RatioNOT REPORTEDMercy Health Allen Hospital, KYCalcium [Mass/Vol]8.6 mg/dL8.6 - 10.4 mg/dLMercy Health Allen Hospital, KYChloride [Moles/Vol]94 mmol/LLow98 - 107 mmol/LMGood Samaritan Hospital, KYCO2 [Moles/Vol]26 mmol/L20 - 31 mmol/LMGood Samaritan Hospital, [place] Creatinine [Mass/Vol]0.46 mg/dLLow0.5 - 0.9 mg/dLMercy Health Allen Hospital, KYGFR >60>60 mL/minMercy Health Allen Hospital, KYGFR Non->60>60 mL/min [facility], KYGFR/1.73 sq M predicted among non-blacks MDRD (S/P/Bld) [Vol rate/Area][facility], KYComment on above:Average GFR for 70 or more years old: 75 mL/min/1.73sq m Chronic Kidney Disease: <60 mL/min/1.73sq m Kidney failure: <15 mL/min/1.73sq m eGFR calculated using average adult body mass. Additional eGFR calculator available at: http://www.Global Axcess/multiple_crcl_2012.htm GFR/1.73 sq M predicted among non-blacks MDRD (S/P/Bld) [Vol rate/Area]NOT REPORTEDMercy Health Allen Hospital, ALGlucose [Mass/Vol]136 mg/aFCfww56 - 99 mg/dLMercy Health Allen Hospital, ALInterpretation and review of laboratory resultsAbnormTwin City Hospital, KYPotassium [Moles/Vol]3.3 mmol/LLow3.7 - 5.3 mmol/LMOhio Valley Hospital [place], KYSodium [Moles/Vol]132 mmol/ZQoj354 - 144 mmol/LMOhio Valley Hospital [place], KYUrea nitrogen [Mass/Vol]16 mg/dL8 - 23 mg/dLMercy Health Allen Hospital, ALCBC auto differential on [id number] (Bld) [#/Vol]0.04 10*3/[facility], [place] Basophils/100 WBC (Bld)0 %0 - 2 %[facility], ALDifferential TypeNOT REPORTEDMercy Health Allen Hospital, KYEosinophils (Bld) [#/Vol]10*3/[facility], [place] Eosinophils/100 WBC (Bld)0 %Low1 - 4 %[facility], ALErythrocyte distribution width (RBC) [Ratio]14.7 %High11.8 - 14.4 %[facility], [place] Hematocrit (Bld) [Volume fraction]40.5 %36.3 - 47.1 %[facility], [place] Hemoglobin (Bld) [Mass/Vol]12.7 g/dL11.9 - 15.1 g/dLMercy Health Allen Hospital, ALImmature granulocytes (Bld) [#/Vol]0.11 10*3/[facility], ALImmature granulocytes (Bld) [#/Vol]1 %Rvjj2XbdcxMercy Health Allen Hospital, ALInterpretation and review of laboratory resultsAbnormTwin City Hospital, ALLymphocytes (Bld) [#/Vol]1.50 10*3/[facility], KYLymphocytes/100 WBC (Bld)12 %Low24 - 43 %[place], KYMCH (RBC) [Entitic mass]29.4 pg25.2 - 33.5 pgYale, [place] MCHC (RBC) [Mass/Vol]31.4 g/dL28.4 - 34.8 g/dLAdams County Regional Medical CenterV (RBC) [Entitic vol]93.8 fL82.6 - 102.9 fLYale, KYMonocytes (Bld) [#/Vol] 0.87 10*3/uLMercy Health Allen Hospital, ALMonocytes/100 WBC (Bld)7 %3 - 12 %[place], KYPlatelet mean volume (Bld) [Entitic vol]10.7 fL8.1 - 13.5 fLYale, KYPlatelets (Bld) [#/Vol]196 10*3/uLYale, KYPlatelets (Bld) [#/Vol]NOT REPORTEDFulton County Health Center (Bld) [#/Vol]4.32 10*6/uL3.95 - 5.11 m/uLFulton County Health Center morphology finding Nom (Bld)ANISOCYTOSIS PRESENT [facility], Health systemgmented neutrophils/100 WBC (Bld)79 %High36 - 65 %[place], KYSegs Absolute9.64HighYale, KYWBC (Bld) [#/Vol]12.2 10*3/uLHighYale, KYWBC (Bld) [#/Vol]0.0 10*3/uL0.0 per 100 WBCMercy Health Allen Hospital, ALW MorphologyNOT REPORTEDMercy Health Perrysburg Hospital with Diffon [id number]. Basophil0.04 k/uLNormal0.00-0.20[facility] Comment on above:Performed By: #### CDP, CP, LIP, TROPI, LIPRF, GLYHGB #### [facility] [place] [address] Die Caster: Marie Mcmanus.Imm.Granulocyte0.11 k/uLNormal0.00-0.30Mer[facility] Perrysburg HospitalComment on above:Performed By: #### CDP, CP, LIP, TROPI, LIPRF, GLYHGB #### [facility] [address] [place] [address] Die Caster: Marie Mcmanus.Neutrophil (Seg)9.64 k/uLHigh1.50-8.10Mer[facility] Perrysburg HospitalComment on above:Performed By: #### CDP, CP, LIP, TROPI, LIPRF, GLYHGB #### [facility] [address] [place] [address] Die Caster: Brandon Anaya MDBasophils/100 WBC (Bld)0 %Normal0-2MSutter Tracy Community HospitalComment on above:Performed By: #### CDP, CP, LIP, TROPI, LIPRF, GLYHGB #### [facility] [address] [place] [address] Die Caster: Brandon Anaya MDEosinophils (Bld) [#/Vol]10*3/uLNormal0.00-0.44 [facility] HospitalComment on above:Performed By: #### CDP, CP, LIP, TROPI, LIPRF, GLYHGB #### [facility] [address] [place] [address] Die Caster: MAU Mcmanusosinophils/100 WBC (Bld)0 %Low1-4Mer[facility] Perry[facility] HospitalComment on above:Performed By: #### CDP, CP, LIP, TROPI, LIPRF, GLYHGB #### [facility] [address] [place] [address] Die Caster: Brandon Anaya MDErythrocyte distribution width (RBC) [Ratio]14.7 %High11.8-14.4Mer[facility] Perrysburg HospitalComment on above:Performed By: #### CDP, CP, LIP, TROPI, LIPRF, GLYHGB #### [facility] [address] [place] [address] Die Caster: Brandon Anaya MDHematocrit (Bld) [Volume fraction]40.5 %Normal 36.3-47.1MSutter Tracy Community HospitalComment on above:Performed By: #### CDP, CP, LIP, TROPI, LIPRF, GLYHGB #### [facility] [address] [place] [address] Die Caster: Brandon Anaya MDHemoglobin (Bld) [Mass/Vol]12.7 g/dLNormal 11.9-15.1MSutter Tracy Community HospitalComment on above:Performed By: #### CDP, CP, LIP, TROPI, LIPRF, GLYHGB #### [facility] [address] [place] [address] Die Caster: Brandon Anaya MDImmature granulocytes (Bld) [#/Vol]1 %Cdel8OvbtaMercy Health Perrysburg HospitalComment on above:Performed By: #### CDP, CP, LIP, TROPI, LIPRF, GLYHGB #### [facility] [address] [place] [address] Die Caster: Brandon Anaya MDLymphocytes (Bld) [#/Vol]1.50 10*3/uLNormal 1.10-3.70Mer[facility] Perry[facility] HospitalComment on above:Performed By: #### CDP, CP, LIP, TROPI, LIPRF, GLYHGB #### [facility] [address] [place] [address] Die Caster: Luiza Mcmanushocytes/100 WBC (Bld)12 %Alg45-57IgdyjMercy Health Perrysburg HospitalComment on above:Performed By: #### CDP, CP, LIP, TROPI, LIPRF, GLYHGB #### [facility] [address] [place] [address] Die Caster: LIZZY McmanusCH (RBC) [Entitic mass]29.4 keFbnvdp18.2-33.5 [facility] HospitalComment on above:Performed By: #### CDP, CP, LIP, TROPI, LIPRF, GLYHGB #### [address] [address] Die Caster: LIZZY McmanusCHC (RBC) [Mass/Vol]31.4 g/wFVtcitl74.4-34.8 [facility] HospitalComment on above:Performed By: #### CDP, CP, LIP, TROPI, LIPRF, GLYHGB #### [address] [address] Die Caster: LIZZY McmanusCV (RBC) [Entitic vol]93.8 lDVohevc51.6-102.9 [facility] HospitalComment on above:Performed By: #### CDP, CP, LIP, TROPI, LIPRF, GLYHGB #### [address] [address] Die Caster: LIZZY Mcmanusonocytes (Bld) [#/Vol]0.87 10*3/uLNormal 0.10-1.20[facility] HospitalComment on above:Performed By: #### CDP, CP, LIP, TROPI, LIPRF, GLYHGB #### [facility] [address] [place] [address] Die Caster: LIZZY Mcmanusonocytes/100 WBC (Bld)7 %Normal3-12Mer[facility] HospitalComment on above:Performed By: #### CDP, CP, LIP, TROPI, LIPRF, GLYHGB #### [address] [address] Die Caster: Brandon Anaya MDNeutrophil (Seg)79 %Fpxf77-00VmlljMercy Health Perrysburg HospitalComment on above:Performed By: #### CDP, CP, LIP, TROPI, LIPRF, GLYHGB #### [facility] [address] [place] [address] Die Caster: JOSIE Mcmanus Automated0.0 per 100 WBCNormal0.0[facility] HospitalComment on above:Performed By: #### CDP, CP, LIP, TROPI, LIPRF, GLYHGB #### [facility] [address] [place] [address] Die Caster: Nadeem Mcmanus mean volume (Bld) [Entitic vol]10.7 fL Normal8.1-13.5Mer[facility] HospitalComment on above:Performed By: #### CDP, CP, LIP, TROPI, LIPRF, GLYHGB #### [facility] [address] [place] [address] Die Caster: Bon Mcmanus (Bld) [#/Vol]196 10*3/pBPzllcz238-324 [facility] HospitalComment on above:Performed By: #### CDP, CP, LIP, TROPI, LIPRF, GLYHGB #### [facility] [address] [place] [address] Die Caster: DREW McmanusBC (Bld) [#/Vol]4.32 10*6/uLNormal3.95-5.11 [facility] HospitalComment on above:Performed By: #### CDP, CP, LIP, TROPI, LIPRF, GLYHGB #### [facility] [address] [place] [address] Die Caster: RICHA Mcmanus morphology finding Nom (Bld)ANISOCYTOSIS PRESENTNormalMercy Health Perrysburg HospitalComment on above:Performed By: #### CDP, CP, LIP, TROPI, LIPRF, GLYHGB #### [facility] [address] [place] [address] Die Caster: LUCIAN Mcmanus ([facility]) [#/Vol]12.2 10*3/uLHigh3.5-11.3Mer[facility] George Psychiatric PavilionComment on above:Performed By: #### CDP, CP, LIP, TROPI, LIPRF, GLYHGB #### [facility] [address] [place] [address] Die Caster: Gustabo Mcmanus PerformedNOT REPORTEDrmalMercy Health Perrysburg HospitalComment on above:Performed By: #### CDP, CP, LIP, TROPI, LIPRF, GLYHGB #### [facility] [address] [place] [address] Die Caster: Bon Mcmanus) [#/Vol]NOT REPORTEDNormTriHealthComment on above:Performed By: #### CDP, CP, LIP, TROPI, LIPRF, GLYHGB #### [facility] [address] [place] [address] Die Caster: LUCIAN Mcmanus MorphologyNOT REPORTEDrmTriHealthComment on above:Performed By: #### CDP, CP, LIP, TROPI, LIPRF, GLYHGB #### [facility] [address] [place] [address] Die Caster: Yane Mcmanusgnesiumon [id number] [Mass/Vol]2.2 mg/dLNormal1.6-2.6Mercy [facility] Psychiatric PavilionComment on above:Performed By: #### CDP, CP, LIP, TROPI, LIPRF, GLYHGB #### [facility] [address] [place] [address] Die Caster: Brandon Anaya MDMagnesium [Mass/Vol]2.2 mg/dL1.6 - 2.6 mg/dL [facility]- [place], KYPOC Glucose Fingerstickon [id number] [Mass/Vol]117 mg/hZOtno12 - 105 mg/dLMercy Health- [place], KYInterpretation and review of laboratory resultsAbnormalMercy Health- [place], KYGlucose [Mass/Vol]115 mg/iWLdod86 - 105 mg/dLMercy Health- [place], KYInterpretation and review of laboratory results AbnormalMer Health- [place], KYGlucose [Mass/Vol]123 mg/vNEpbw81 - 105 mg/dLMercy Health- [place], KYInterpretation and review of laboratory resultsAbnormalMer Health- [place], KYGlucose [Mass/Vol]117 mg/nSNspa15 - 105 mg/dLMer Health- [place], [place] Interpretation and review of laboratory resultsAbnormAtrium Health [facility]- [place], [place] URINALYSIS WITH MICROSCOPICon [id number], UANOT REPORTEDNoneMercy Health- [place], KYBacteria, UANOT REPORTEDNoneMercy [...] for non-centrifuged specimen.Renal Epithelial, UANOT REPORTED0 /HPFMercy Health Allen Hospital, KYSpecific [place], UA1.011[facility], [place] Trichomonas, UANOT REPORTEDNonKeenan Private Hospital, KYTurbidity UATURBIDAbnormal CLEARMercy Health Allen Hospital, KYUrine HgbNegativeNEGATIVEMercy Health Allen Hospital, [place] Urobilinogen, UrineNormalNormalMercy Health [facility] Hospital, KYWBC, UA0 TO 2MercAdventHealth Daytona Beach, KYYeast, UANOT REPORTEDNonKeenan Private Hospital, [place]-[facility], [place] Urinalysis w/ Microon 10-12-2019-----NormalMercy Health Perrysburg Hospital Comment on above:Performed By: #### CDP, CP, LIP, TROPI, LIPRF, GLYHGB #### [employer] [address] [place] [address] Die Caster: Brandon Anaya MDAcetoacetic Acid,UrSMALLAbnormalCleveland Clinic Mentor HospitalComment on above:Performed By: #### CDP, CP, LIP, TROPI, LIPRF, GLYHGB #### [employer] [address] [place] [address] Die Caster: Sourav Mcmanusirubin, SemiQt,UrNegativeNormalCleveland Clinic Mentor HospitalComment on above:Performed By: #### CDP, CP, LIP, TROPI, LIPRF, GLYHGB #### [facility] [address] [place] [address] Die Caster: Maria Elena Mcmanus LM.LPF (Urine sed) [#/Area]0 TO 2 HYALINE Normal0-8[facility] HospitalComment on above:Result Comment: Reference range defined for non-centrifuged specimen.Performed By: #### CDP, CP, LIP, TROPI, LIPRF, GLYHGB #### [facility] [address] [place] [address] Die Caster: Bang Mcmanus (U)YELLOWNormalYELMerSutter California Pacific Medical CenterComment on above:Performed By: #### CDP, CP, LIP, TROPI, LIPRF, GLYHGB #### [facility] [address] [place] [address] Die Caster: Brandon Anaya MDEpithelial cells LM.HPF (Urine sed) [#/Area]2 TO 6Cjcxoi8-9Bcnwp John George Psychiatric PavilionComment on above:Performed By: #### CDP, CP, LIP, TROPI, LIPRF, GLYHGB #### [facility] [address] [place] [address] Die Caster: Brandon Anaya MDGlucose Ql (U)NegativeNormalNEGMercy Health Perrysburg HospitalComment on above:Performed By: #### CDP, CP, LIP, TROPI, LIPRF, GLYHGB #### [facility] [address] [place] [address] Die Caster: Brandon Anaya MDHemoglobin, UrNegativeNormalNEGMercy Health Perrysburg HospitalComment on above:Performed By: #### CDP, CP, LIP, TROPI, LIPRF, GLYHGB #### [facility] [address] [place] [address] Die Caster: Brandon Anaya MDLeukocyte esterase Test strip Ql (U)Negative NormalNEGMercy Health Perrysburg HospitalComment on above:Performed By: #### CDP, CP, LIP, TROPI, LIPRF, GLYHGB #### [facility] [address] [place] [address] Die Caster: Brandon Anaya MDNitrite,UrNegativeNormalNEGMercy Health Perrysburg HospitalComment on above:Performed By: #### CDP, CP, LIP, TROPI, LIPRF, GLYHGB #### [facility] [address] [place] [address] Die Caster: Brandon Anaya [facility] (U)8.5 [pH]High5.0-8.0Mer[facility] Perrysburg HospitalComment on above:Performed By: #### CDP, CP, LIP, TROPI, LIPRF, GLYHGB #### [employer] [address] [place] [address] Die Caster: BLADIMIR Mcmanusrotein Ql (U)NegativeNormalNEGMercy Health Perrysburg HospitalComment on above:Performed By: #### CDP, CP, LIP, TROPI, LIPRF, GLYHGB #### [employer] [address] [place] [address] Die Caster: DREW McmanusBC (U) [#/Vol]TOO NUMEROUS TO COUNTNormal0-4 [facility] HospitalComment on above:Result Comment: Reference range defined for non-centrifuged specimen.Performed By: #### CDP, CP, LIP, TROPI, LIPRF, GLYHGB #### [employer] [address] [place] [address] Die Caster: FABIANA Mcmanuspecific gravity (U) [Rel density]1.011Normal 1.005-1.030[facility] HospitalComment on above:Performed By: #### CDP, CP, LIP, TROPI, LIPRF, GLYHGB #### [employer] [address] [place] [address] Die Caster: GODWIN McmanusurbidityTURBIDAbnormalCLEARMercKaiser Foundation HospitalComment on above:Performed By: #### CDP, CP, LIP, TROPI, LIPRF, GLYHGB #### [employer] [address] [place] [address] Die Caster: Jackie McmanusUrNormalNormalNORMMercy Health Perrysburg HospitalComment on above:Performed By: #### CDP, CP, LIP, TROPI, LIPRF, GLYHGB #### [employer] [address] [place] [address] Die Caster: Brandon Anaya MDWBC (U) [#/Vol]0 TO 9Brdlaw9-6VopdtMercy Health Perrysburg HospitalComment on above:Performed By: #### CDP, CP, LIP, TROPI, LIPRF, GLYHGB #### [facility] [address] [place] [address] Die Caster: Iwona Mcmanus sediment LM Ql (Urine sed)NOT REPORTED NormalUniversity Hospitals Parma Medical CenterComment on above:Performed By: #### CDP, CP, LIP, TROPI, LIPRF, GLYHGB #### [facility] [address] [place] [address] Die Caster: Tong Mcmanuseria LM.HPF (Urine sed) [#/Area]NOT REPORTED NormalUniversity Hospitals Parma Medical CenterComment on above:Performed By: #### CDP, CP, LIP, TROPI, LIPRF, GLYHGB #### [employer] [address] [place] [address] Die Caster: nAdrew Mcmanus LM Nom (Urine sed)NOT REPORTEDNormal NONEMercy Health Perrysburg HospitalComment on above:Performed By: #### CDP, CP, LIP, TROPI, LIPRF, GLYHGB #### [employer] [address] [place] [address] Die Caster: Brandon Anaya MDEpithelial, RenalNOT HQWDNDOFScspko6FjhgsMercy Health Perrysburg HospitalComment on above:Performed By: #### CDP, CP, LIP, TROPI, LIPRF, GLYHGB #### [facility] [address] [place] [address] Die Caster: Raquel Mcmanusus StrandsNOT REPORTEDNormalNONEMeMotion Picture & Television HospitalComment on above:Performed By: #### CDP, CP, LIP, TROPI, LIPRF, GLYHGB #### [facility] [address] [place] [address] Die Caster: Brandon Anaya MDOther ObservationsNOT REPORTEDNormalNREQMerSutter California Pacific Medical CenterComment on above:Performed By: #### CDP, CP, LIP, TROPI, LIPRF, GLYHGB #### [facility] [address] [place] [address] Die Caster: Brandon Anaya MDTrichomonasNOT REPORTEDNormalNONEMeMotion Picture & Television HospitalComment on above:Performed By: #### CDP, CP, LIP, TROPI, LIPRF, GLYHGB #### [facility] [address] [place] [address] Die Caster: Samuel Mcmanusast LM Ql (Urine sed)NOT REPORTEDNormalCLEARSKY REHABILITATION HOSPITAL OF AVONDALEE [facility] HospitalComment on above:Performed By: #### CDP, CP, LIP, TROPI, LIPRF, GLYHGB #### [facility] [address] [place] [address] Die Caster: CHRISTINE Mcmanus RENAL ARTERIAL DUPLEX COMPLETEon 10-12-2019 [facility] Vascular Renal Procedure Patient Name ALEX Date of Study 10/12/2019 SHAYY Date of 1945 Gender Female Age 74 year(s) Race Room Number 2015 Corporate ID [id number] # Patient Acct [id number] # MR # [id number] Clipper Operator Celena Juarez, JACEK, RDMS Interpreting Jamison Galo [...] - The average kidney length is 10.75 cm.[facility]- OKRadha Mhpn Incoming Cardio Results From Cpa/Ge - 10/12/2019 7:54 PM EDT [facility] Vascular Renal Procedure Patient Name ALEX Date of Study 10/12/2019 SHAYY Date of 1945 Gender Female Age 74 year(s) Race Room Number 2015 Corporate ID [id number] # Patient Acct [id number] # MR # [id number] Clipper Operator Celena Juarez RVT, RDMS Interpreting Jamison Galo [...] - The average kidney length is 10.75 cm.[facility]- [place], KYXR CHEST PORTABLEon [id number] CHEST PORTABLEEXAMINATION: ONE XRAY VIEW OF THE [...] Signed by: Argentina Guzmán MD 10/11/19 Final resultNormalMercy Health Perrysburg HospitalBasic Metab w/rfx MGon 10-11-2019(cont.)NormalMercy Health Perrysburg HospitalComment on above:Result Comment: Average GFR for 70 or more years old: 75 mL/min/1.73sq m Chronic Kidney Disease: <60 mL/min/1.73sq m Kidney failure: <15 mL/min/1.73sq m eGFR calculated using average adult body mass. Additional eGFR calculator available at: http://www.[employer]ugg Home.Netformx/multiple_crcl_2012.htmPerformed By: #### CDP, CP, LIP, TROPI, LIPRF, GLYHGB #### [employer] [address] [place] [address] Die Caster: Brandon Anaya MDAnion gap [Moles/Vol]15 mmol/LNormal9-[facility] HospitalComment on above:Performed By: #### CDP, CP, LIP, TROPI, LIPRF, GLYHGB #### [employer] [address] [place] [address] Die Caster: Brandon Anaya MDCalcium [Mass/Vol]9.2 mg/dLNormal8.6-10.4[facility] HospitalComment on above:Performed By: #### CDP, CP, LIP, TROPI, LIPRF, GLYHGB #### [employer] [address] [place] [address] Die Caster: NEHAL Mcmanushloride [Moles/Vol]96 mmol/IJfd46-674FuyvmMercy Health Perrysburg HospitalComment on above:Performed By: #### CDP, CP, LIP, TROPI, LIPRF, GLYHGB #### [place] [address] Die Caster: Brandon Anaya MDCO2 [Moles/Vol]24 mmol/TNwfywv95-63BishrMercy Health Perrysburg HospitalComment on above:Performed By: #### CDP, CP, LIP, TROPI, LIPRF, GLYHGB #### [place] [address] Die Caster: NEHAL Mcmanusreatinine [Mass/Vol]0.55 mg/dLNormal0.50-0.90 [facility] HospitalComment on above:Performed By: #### CDP, CP, LIP, TROPI, LIPRF, GLYHGB #### [place] [address] Die Caster: Brandon Anaya MDGFR, Amer>60Normal>60[facility] HospitalComment on above:Performed By: #### CDP, CP, LIP, TROPI, LIPRF, GLYHGB #### [place] [address] Die Caster: Brandon Anaya MDGFR,non Amer>60Normal>60[facility] HospitalComment on above:Performed By: #### CDP, CP, LIP, TROPI, LIPRF, GLYHGB #### [address] [address] Die Caster: Brandon Anaya MDGlucose [Mass/Vol]146 mg/eVPzfd87-33ZdgwqSutter Tracy Community HospitalComment on above:Performed By: #### CDP, CP, LIP, TROPI, LIPRF, GLYHGB #### [facility] [address] [place] [address] Die Caster: BLADIMIR Mcmanusotassium [Moles/Vol]3.6 mmol/LLow3.7-5.3MSutter Tracy Community HospitalComment on above:Performed By: #### CDP, CP, LIP, TROPI, LIPRF, GLYHGB #### [facility] [address] [place] [address] Die Caster: FABIANA Mcmanusodium [Moles/Vol]135 mmol/ZFdtlfi848-361DivwiMercy Health Perrysburg HospitalComment on above:Performed By: #### CDP, CP, LIP, TROPI, LIPRF, GLYHGB #### [address] [address] Die Caster: Rebecca Mcmanus nitrogen [Mass/Vol]13 mg/dLNormal8-23[facility] HospitalComment on above:Performed By: #### CDP, CP, LIP, TROPI, LIPRF, GLYHGB #### [address] [address] Die Caster: RADHA Mcmanus/CRE RatioNOT REPORTEDNormal9-20[facility] HospitalComment on above:Performed By: #### CDP, CP, LIP, TROPI, LIPRF, GLYHGB #### [facility] [address] [place] [address] Die Caster: FABIANA Mcmanustaging:NOT REPORTEDNormalMercy Health Perrysburg HospitalComment on above:Performed By: #### CDP, CP, LIP, TROPI, LIPRF, GLYHGB #### [facility] [address] [place] [address] Die Caster: Josh Mcmanus Metabolic Panel w/ Reflex to MGon [id number] gap [Moles/Vol]15 mmol/L9 - 17 mmol/LMBlanchard Valley Health System [facility]- [place], KYBun/Cre RatioNOT REPORTEDMerOhioHealth Mansfield Hospital, KYCalcium [Mass/Vol]9.2 mg/dL8.6 - 10.4 mg/dLMercy Health Allen Hospital, KYChloride [Moles/Vol]96 mmol/LLow98 - 107 mmol/LMOhio Valley Hospital [place], KYCO2 [Moles/Vol]24 mmol/L20 - 31 mmol/LMGood Samaritan Hospital, [place] Creatinine [Mass/Vol]0.55 mg/dL0.5 - 0.9 mg/dLMercy Health Allen Hospital, KYGFR >60>60 mL/minMercy Health Allen Hospital, KYGFR Non->60>60 mL/min [facility], KYGFR/1.73 sq M predicted among non-blacks MDRD (S/P/Bld) [Vol rate/Area]NOT REPORTEDMercy Health Allen Hospital, KYGFR/1.73 sq M predicted among non- blacks MDRD (S/P/Bld) [Vol rate/Area][facility], KYComment on above: Average GFR for 70 or more years old: 75 mL/min/1.73sq m Chronic Kidney Disease: <60 mL/min/1.73sq m Kidney failure: <15 mL/min/1.73sq m eGFR calculated using average adult body mass. Additional eGFR calculator available at: http://www.Global Axcess/multiple_crcl_2012.htm Glucose [Mass/Vol]146 mg/zDSmlq20 - 99 mg/dLMercy Health Allen Hospital, KYInterpretation and review of laboratory resultsAbnormalMercy Health Allen Hospital, KYPotassium [Moles/Vol]3.6 mmol/LLow3.7 - 5.3 mmol/LMGood Samaritan Hospital, KYSodium [Moles/Vol] 135 mmol/L135 - 144 mmol/[facility], KYUrea nitrogen [Mass/Vol]13 mg/dL8 - 23 mg/dLMercy Health Allen Hospital, KYCBC auto differentialon [id number] (Bld) [#/Vol]0.03 10*3/uLCleveland Clinic Medina Hospital [facility]- [place], KYBasophils/100 WBC (Bld)0 %0 - 2 %[facility], KYDifferential TypeNOT REPORTEDMercy Health Allen Hospital, KYEosinophils (Bld) [#/Vol]10*3/[facility] [place], KYEosinophils/100 WBC (Bld)0 %Low1 - 4 %[facility], KYErythrocyte distribution width (RBC) [Ratio]14.3 %11.8 - 14.4 % [facility], KYHematocrit (Bld) [Volume fraction]43.6 %36.3 - 47.1 %[facility], KYHemoglobin (Bld) [Mass/Vol]13.7 g/dL11.9 - 15.1 g/dLMercy Health Allen Hospital, KYImmature granulocytes (Bld) [#/Vol]1 %Ouij7PqtuxMercy Health Allen Hospital, KYImmature granulocytes (Bld) [#/Vol]0.07 10*3/[facility], KYInterpretation and review of laboratory resultsAbnormalMercy Health Allen Hospital, KYLymphocytes (Bld) [#/Vol]0.92 10*3/uLTriHealth [facility], KYLymphocytes/100 WBC (Bld)14 %Low24 - 43 %[facility], KYMCH (RBC) [Entitic mass]29.1 pg25.2 - 33.5 pgMercy Health Allen Hospital, KYMCHC (RBC) [Mass/Vol]31.4 g/dL28.4 - 34.8 g/dLMercy Health Allen Hospital, [place] MCV (RBC) [Entitic vol]92.6 fL82.6 - 102.9 fLMercy Health Allen Hospital, KYMonocytes (Bld) [#/Vol]0.07 10*3/uLTriHealth [facility]hes[facility], KYMonocytes/100 WBC (Bld)1 %Low3 - 12 % [facility], KYPlatelet mean volume (Bld) [Entitic vol]10.6 fL8.1 - 13.5 fL [facility], KYPlatelets (Bld) [#/Vol]NOT REPORTEDYale, [place] Platelets (Bld) [#/Vol]196 10*3/uLYale, KYRBC (Bld) [#/Vol]4.71 10*6/uL3.95 - 5.11 m/[facility] morphology finding Nom (Bld)NOT REPORTEDBluffton Hospitalgmented neutrophils/100 WBC (Bld)84 %High36 - 65 % [place], KYSegs Absolute5.67[place], KYWBC (Bld) [#/Vol]0.0 10*3/uL0.0 per 100 WBCYale, KYWBC (Bld) [#/Vol]6.8 10*3/uLMercy Health Allen Hospital, [facility] MorphologyNOT REPORTEDMer[facility] Health [facility] with Diffon [id number]. Basophil0.03 k/uLNormal0.00-0.20[facility] Comment on above:Performed By: #### CDP, CP, LIP, TROPI, LIPRF, GLYHGB #### [facility] [address] [place] [address] Die Caster: Marie Mcmanus.Imm.Granulocyte0.07 k/uLNormal0.00-0.30[facility] HospitalComment on above:Performed By: #### CDP, CP, LIP, TROPI, LIPRF, GLYHGB #### [facility] [address] [place] [address] Die Caster: Marie Mcmanus.Neutrophil (Seg)5.67 k/uLNormal1.50-8.10 [facility] HospitalComment on above:Performed By: #### CDP, CP, LIP, TROPI, LIPRF, GLYHGB #### [facility] [address] [place] [address] Die Caster: Radha Mcmanussophils/100 WBC (Bld)0 %Normal0-2MSutter Tracy Community HospitalComment on above:Performed By: #### CDP, CP, LIP, TROPI, LIPRF, GLYHGB #### [place] [address] Die Caster: Brandon Anaya MDEosinophils (Bld) [#/Vol]10*3/uLNormal0.00-0.44 [facility] HospitalComment on above:Performed By: #### CDP, CP, LIP, TROPI, LIPRF, GLYHGB #### [place] [address] Die Caster: MAU Mcmanusosinophils/100 WBC (Bld)0 %Low1-4Mer[facility] HospitalComment on above:Performed By: #### CDP, CP, LIP, TROPI, LIPRF, GLYHGB #### [place] [address] Die Caster: Brandon Anaya MDErythrocyte distribution width (RBC) [Ratio]14.3 %Hncpdu41.8-14.4Mer[facility] HospitalComment on above:Performed By: #### CDP, CP, LIP, TROPI, LIPRF, GLYHGB #### [place] [address] Die Caster: Brandon Anaya MDHematocrit (Bld) [Volume fraction]43.6 %Normal 36.3-47.1MSutter Tracy Community HospitalComment on above:Performed By: #### CDP, CP, LIP, TROPI, LIPRF, GLYHGB #### [place] [address] Die Caster: Brandon Anaya MDHemoglobin (Bld) [Mass/Vol]13.7 g/dLNormal 11.9-15.1MSutter Tracy Community HospitalComment on above:Performed By: #### CDP, CP, LIP, TROPI, LIPRF, GLYHGB #### [facility] [address] [place] [address] Die Caster: Brandon Anaya MDImmature granulocytes (Bld) [#/Vol]1 %Wsdr0QtpsaMercy Health Perrysburg HospitalComment on above:Performed By: #### CDP, CP, LIP, TROPI, LIPRF, GLYHGB #### [facility] [address] [place] [address] Die Caster: Brandon Anaya MDLymphocytes (Bld) [#/Vol]0.92 10*3/uLLow 1.10-3.70[facility] HospitalComment on above:Performed By: #### CDP, CP, LIP, TROPI, LIPRF, GLYHGB #### [facility] [address] [place] [address] Die Caster: Luiza Mcmanushocytes/100 WBC (Bld)14 %Hso28-78JwcaoMercy Health Perrysburg HospitalComment on above:Performed By: #### CDP, CP, LIP, TROPI, LIPRF, GLYHGB #### [facility] [address] [place] [address] Die Caster: LIZZY McmanusCH (RBC) [Entitic mass]29.1 pkKjzjqo54.2-33.5 [facility] HospitalComment on above:Performed By: #### CDP, CP, LIP, TROPI, LIPRF, GLYHGB #### [facility] [address] [place] [address] Die Caster: LIZZY McmanusCHC (RBC) [Mass/Vol]31.4 g/zVCkpagq15.4-34.8 [facility] HospitalComment on above:Performed By: #### CDP, CP, LIP, TROPI, LIPRF, GLYHGB #### [facility] [address] [place] [address] Die Caster: LIZZY McmanusCV (RBC) [Entitic vol]92.6 nRQekcnp47.6-102.9 [facility] HospitalComment on above:Performed By: #### CDP, CP, LIP, TROPI, LIPRF, GLYHGB #### [address] [address] Die Caster: LIZZY Mcmanusonocytes (Bld) [#/Vol]0.07 10*3/uLLow0.10-1.20 [facility] HospitalComment on above:Performed By: #### CDP, CP, LIP, TROPI, LIPRF, GLYHGB #### [place] [address] Die Caster: LIZZY Mcmanusonocytes/100 WBC (Bld)1 %Low3-12[facility] HospitalComment on above:Performed By: #### CDP, CP, LIP, TROPI, LIPRF, GLYHGB #### [place] [address] Die Caster: Modesta Mcmanusophil (Seg)84 %Bzxw18-72FyyrvMercy Health Perrysburg HospitalComment on above:Performed By: #### CDP, CP, LIP, TROPI, LIPRF, GLYHGB #### [place] [address] Die Caster: Brandon Anaya MDNRBC Automated0.0 per 100 WBCNormal0.0Mer[facility] Perry[facility] HospitalComment on above:Performed By: #### CDP, CP, LIP, TROPI, LIPRF, GLYHGB #### [address] [address] Die Caster: BLADIMIR Mcmanuslatelet mean volume (Bld) [Entitic vol]10.6 fL Normal8.1-13.5Mer[facility] HospitalComment on above:Performed By: #### CDP, CP, LIP, TROPI, LIPRF, GLYHGB #### [facility] [address] [place] [address] Die Caster: Bon Mcmanus ([facility]) [#/Vol]196 10*3/iPDenjof323-719 [facility] HospitalComment on above:Performed By: #### CDP, CP, LIP, TROPI, LIPRF, GLYHGB #### [facility] [address] [place] [address] Die Caster: DREW Mcmanus ([facility]) [#/Vol]4.71 10*6/uLNormal3.95-5.11 [facility] HospitalComment on above:Performed By: #### CDP, CP, LIP, TROPI, LIPRF, GLYHGB #### [address] [address] Die Caster: LUCIAN Mcmanus ([facility]) [#/Vol]6.8 10*3/uLNormal3.5-11.3MSutter Tracy Community HospitalComment on above:Performed By: #### CDP, CP, LIP, TROPI, LIPRF, GLYHGB #### [facility] [address] [place] [address] Die Caster: Gustabo Mcmansu PerformedNOT REPORTEDNormalMercy Health Perrysburg HospitalComment on above:Performed By: #### CDP, CP, LIP, TROPI, LIPRF, GLYHGB #### [facility] [address] [place] [address] Die Caster: Bon Mcmanus ([facility]) [#/Vol]NOT REPORTEDrmalMercy Health Perrysburg HospitalComment on above:Performed By: #### CDP, CP, LIP, TROPI, LIPRF, GLYHGB #### [facility] [address] [place] [address] [phone] Die Caster: RICHA Mcmanus morphology finding Nom (Bld)NOT REPORTED NormalMercy Health Perrysburg HospitalComment on above:Performed By: #### CDP, CP, LIP, TROPI, LIPRF, GLYHGB #### [facility] [address] [place] [address] Die Caster: LUCIAN Mcmanus MorphologyNOT REPORTEDNormalMercy Health Perrysburg HospitalComment on above:Performed By: #### CDP, CP, LIP, TROPI, LIPRF, GLYHGB #### [facility] [address] [place], [place] [id number] Die Caster: WENDY Mcmanus BRAIN W WO CONTRASTon [id number] BRAIN W WO CONTRASTEXAMINATION: MRI OF THE [...] Signed by: Chaitanya Sawyer MD 10/11/19 Final resultNormThe Surgical Hospital at [facility]woods, [facility] Incoming Radiant Results From [employer] - 10/11/2019 3:07 PM EDT EXAMINATION: MRI [...] Small meningioma over the right frontal lobe. [place], [place]Volume loss with chronic white matter microvascular ischemic change. Small meningioma over the right frontal lobe.[facility], [place] EXAMINATION: MRI OF THE BRAIN WITHOUT AND [...] tissues demonstrate no acute abnormality. [facility] HospitalCLARAPOC Glucose Fingerstickon [id number] [Mass/Vol]121 mg/jNDpzw75 - 105 mg/dLMercy Health Allen Hospital, KYInterpretation and review of laboratory resultsAbnormTwin City Hospital, CLARAGlucose [Mass/Vol]171 mg/eIFvzj70 - 105 mg/dLMercy Health Allen Hospital, KYInterpretation and review of laboratory results AbnormalMercy Health Allen Hospital, ALGlucose [Mass/Vol]127 mg/vFBhfr69 - 105 mg/dLMercy Health Allen Hospital, KYInterpretation and review of laboratory resultsAbnoSouthview Medical Center, ALGlucose [Mass/Vol]145 mg/zXApcy89 - 105 mg/dLMercy Health Allen Hospital, [place] Interpretation and review of laboratory resultsAbnoSouthview Medical Center, CLARAXR CHEST PORTABLEon [id number]: ONE XRAY VIEW OF THE CHEST 10/11/2019 10:45 pm COMPARISON: 06/27/2017 HISTORY: ORDERINGSYSTEM PROVIDED HISTORY: evaluate TECHNOLOGIST PROVIDED HISTORY: evaluate Reason for Exam: Upright p ortable Acuity: Unknown Type of Exam: Unknown FINDINGS: Cardiomediastinal silhouette is unchanged in size. Aortic atherosclerosis. No pulmonary consolidation, pleural effusion, or pneumothorax. No acute osseous abnormality. [facility] HospitalRadha Mhpn Incoming Radiant Results From [employer] - 10/11/2019 11:49 PM EDT EXAMINATION: ONE [...] IMPRESSION: No acute cardiopulmonary abnormality. [facility] HospitalJIMo acute cardiopulmonary abnormality.[facility] HospitalCLARA Basic Metab w/rfx MGon 10-10-2019(cont.)[facility] Comment on above:Result Comment: Average GFR for 70 or more years old: 75 mL/min/1.73sq m Chronic Kidney Disease: <60 mL/min/1.73sq m Kidney failure: <15 mL/min/1.73sq m eGFR calculated using average adult body mass. Additional eGFR calculator available at: http://www.[employer]ugg [employer].Netformx/multiple_crcl_2012.htmPerformed By: #### CDP, CP, LIP, TROPI, LIPRF, GLYHGB #### [facility] [address] [place] [address] Die Caster: Brandon Anaya MDAnion gap [Moles/Vol]10 mmol/LNormal9-17[facility] HospitalComment on above:Performed By: #### CDP, CP, LIP, TROPI, LIPRF, GLYHGB #### [facility] [address] [place] [address] Die Caster: NEHAL Mcmanusalcium [Mass/Vol]9.0 mg/dLNormal8.6-10.4[facility] HospitalComment on above:Performed By: #### CDP, CP, LIP, TROPI, LIPRF, GLYHGB #### [employer] [address] [place] [address] Die Caster: Brandon Anaya MDChloride [Moles/Vol]97 mmol/SDrw84-878SbnaeMercy Health Perrysburg HospitalComment on above:Performed By: #### CDP, CP, LIP, TROPI, LIPRF, GLYHGB #### [employer] [address] [place] [address] Die Caster: Brandon Anaya MDCO2 [Moles/Vol]25 mmol/QHdbzoe43-30HmfibMercy Health Perrysburg HospitalComment on above:Performed By: #### CDP, CP, LIP, TROPI, LIPRF, GLYHGB #### [employer] [address] [place] [address] Die Caster: NEHAL Mcmanusreatinine [Mass/Vol]0.50 mg/dLNormal0.50-0.90 [facility] HospitalComment on above:Performed By: #### CDP, CP, LIP, TROPI, LIPRF, GLYHGB #### [address] [address] Die Caster: Brandon Anaya MDGFR, Amer>60Normal>60Mer[facility] Psychiatric PavilionComment on above:Performed By: #### CDP, CP, LIP, TROPI, LIPRF, GLYHGB #### [address] [address] Die Caster: CAROLYN Mcmanus,non Amer>60Normal>60MerSutter California Pacific Medical CenterComment on above:Performed By: #### CDP, CP, LIP, TROPI, LIPRF, GLYHGB #### [place] [address] Die Caster: Brandon Anaya MDGlucose [Mass/Vol]123 mg/yIIemr86-16JehjcSutter Tracy Community HospitalComment on above:Performed By: #### CDP, CP, LIP, TROPI, LIPRF, GLYHGB #### [address] [address] Die Caster: BLADIMIR Mcmanusotassium [Moles/Vol]3.5 mmol/LLow3.7-5.3Mfayette county memorial hospitaly John [facility] Psychiatric PavilionComment on above:Performed By: #### CDP, CP, LIP, TROPI, LIPRF, GLYHGB #### [address] [address] Die Caster: FABIANA Mcmanusodium [Moles/Vol]132 mmol/CFdk599-940LrojpMercy Health Perrysburg HospitalComment on above:Performed By: #### CDP, CP, LIP, TROPI, LIPRF, GLYHGB #### [place] [address] [place] [address] Die Caster: Brandno Anaya MDUrea nitrogen [Mass/Vol]14 mg/dLNormal8-23[facility] HospitalComment on above:Performed By: #### CDP, CP, LIP, TROPI, LIPRF, GLYHGB #### [facility] [address] [place] [address] Die Caster: Brandon Anaya MDBUN/CRE RatioNOT REPORTEDNormal9-20[facility] HospitalComment on above:Performed By: #### CDP, CP, LIP, TROPI, LIPRF, GLYHGB #### [facility] [address] [place] [address] Die Caster: FABIANA Mcmanustaging:NOT REPORTEDNormalMercy Health Perrysburg HospitalComment on above:Performed By: #### CDP, CP, LIP, TROPI, LIPRF, GLYHGB #### [facility] [address] [place] [address] Die Caster: Josh Mcmanus Metabolic Panel w/ Reflex to MGon [id number] gap [Moles/Vol]10 mmol/L9 - 17 mmol/LMercy Health- [...] among non-blacks MDRD (S/P/Bld) [Vol rate/Area][facility], KYComment on above:Average GFR for 70 or more years old: 75 mL/min/1.73sq m Chronic Kidney Disease: <60 mL/min/1.73sq m Kidney failure: <15 mL/min/1.73sq m eGFR calculated using average adult body mass. Additional eGFR calculator available at: http://www.Global Axcess/multiple_crcl_2012.htm GFR/1.73 sq M predicted among non-blacks MDRD (S/P/Bld) [Vol rate/Area]NOT REPORTEDMer[facility] Health [facility], KYGlucose [Mass/Vol]123 mg/sPZnef50 - 99 mg/dLMercy Health Allen Hospital, KYInterpretation and review of laboratory resultsAbnormTwin City Hospital, KYPotassium [Moles/Vol]3.5 mmol/LLow3.7 - 5.3 mmol/LMGood Samaritan Hospital, KYSodium [Moles/Vol]132 mmol/AToq652 - 144 mmol/[facility], KYUrea nitrogen [Mass/Vol]14 mg/dL8 - 23 mg/dLMercy Health Allen Hospital, KYC-REACTIVE PROTEINon [id number] [Mass/Vol]6.3 mg/LHigh0 - 5 mg/LMGood Samaritan Hospital, KYInterpretation and review of laboratory resultsAbnormTwin City Hospital, KYC-Reactive Protein on [id number] [Mass/Vol]6.3 mg/LHigh0.0-5.0[facility] Comment on above:Performed By: #### CDP, CP, LIP, TROPI, LIPRF, GLYHGB #### [employer] [address] [place] [address] Die Caster: Brandon Anaya [facility] auto differentialon [id number] (Bld) [#/Vol]0.06 10*3/uLMercy Health Allen Hospital, KYBasophils/100 WBC (Bld)1 %0 - 2 % [facility], KYDifferential TypeNOT REPORTEDMercy Health- [place], KYEosinophils (Bld) [#/Vol]0.07 10*3/uLCommunity Regional Medical Center- [place], KYEosinophils/100 WBC (Bld)1 %1 - 4 %[facility]- [place], KYErythrocyte distribution width (RBC) [Ratio]14.5 %High11.8 - 14.4 %[facility]- [place], KYHematocrit (Bld) [Volume fraction]42.7 %36.3 - 47.1 %[facility]- [place], KYHemoglobin (Bld) [Mass/Vol]13.5 g/dL11.9 - 15.1 g/dLCommunity Regional Medical Center- [place], KYImmature granulocytes (Bld) [#/Vol]0.05 10*3/uLCommunity Regional Medical Center- [place], KYImmature granulocytes (Bld) [#/Vol]1 %Tmtd5SvxpiCommunity Regional Medical Center- [place], KYInterpretation and review of laboratory resultsAbnormalCommunity Regional Medical Center- [place], KYLymphocytes (Bld) [#/Vol]1.05 10*3/uLLowCommunity Regional Medical Center- [place], KYLymphocytes/100 WBC (Bld)14 %Low24 - 43 %[facility]- [place], KYMCH (RBC) [Entitic mass]29.8 pg25.2 - 33.5 pgCommunity Regional Medical Center- [place], KYMCHC (RBC) [Mass/Vol]31.6 g/dL28.4 - 34.8 g/dLCommunity Regional Medical Center- [place], [place] MCV (RBC) [Entitic vol]94.3 fL82.6 - 102.9 fLCommunity Regional Medical Center- [place], KYMonocytes (Bld) [#/Vol]0.65 10*3/uLCommunity Regional Medical Center- [place], KYMonocytes/100 WBC (Bld)9 %3 - 12 %[facility]- [place], KYPlatelet mean volume (Bld) [Entitic vol]10.9 fL8.1 - 13.5 fLCommunity Regional Medical Center- [place], KYPlatelets (Bld) [#/Vol]170 10*3/uLCommunity Regional Medical Center- [place], KYPlatelets (Bld) [#/Vol]NOT REPORTEDCommunity Regional Medical Center- [place], KYRBC (Bld) [#/Vol]4.53 10*6/uL3.95 - 5.11 m/[place], KYRB morphology finding Nom (Bld)ANISOCYTOSIS PRESENTMercy Health Allen Hospital, ALSegmented neutrophils/100 WBC (Bld)74 %High36 - 65 % [place], KYSegs Absolute5.55[place], KYWBC (Bld) [#/Vol]0.0 10*3/uL0.0 per 100 WBCY[place], KYWBC (Bld) [#/Vol]7.4 10*3/uLMercy Health Allen Hospital, ALW MorphologyNOT REPORTEDMercy Health [facility]sburg Hospital with Diffon [id number]. Basophil0.06 k/uLNormal0.00-0.20[facility] Comment on above:Performed By: #### CDP, CP, LIP, TROPI, LIPRF, GLYHGB #### [place] [address] Die Caster: Marie Mcmanus.Imm.Granulocyte0.05 k/uLNormal0.00-0.30[facility] HospitalComment on above:Performed By: #### CDP, CP, LIP, TROPI, LIPRF, GLYHGB #### [facility] [address] [place] [address] Die Caster: Marie Mcmanus.Neutrophil (Seg)5.55 k/uLNormal1.50-8.10 [facility] HospitalComment on above:Performed By: #### CDP, CP, LIP, TROPI, LIPRF, GLYHGB #### [facility] [address] [place] [address] Die Caster: Radha Mcmanussophils/100 WBC (Bld)1 %Normal0-2MSutter Tracy Community HospitalComment on above:Performed By: #### CDP, CP, LIP, TROPI, LIPRF, GLYHGB #### [facility] [address] [place] [address] Die Caster: Brandon Anaya MDEosinophils (Bld) [#/Vol]0.07 10*3/uLNormal 0.00-0.44[facility] HospitalComment on above:Performed By: #### CDP, CP, LIP, TROPI, LIPRF, GLYHGB #### [facility] [address] [place] [address] Die Caster: MAU Mcmanusosinophils/100 WBC (Bld)1 %Normal1-4[facility] HospitalComment on above:Performed By: #### CDP, CP, LIP, TROPI, LIPRF, GLYHGB #### [facility] [address] [place] [address] Die Caster: Brandon Anaya MDErythrocyte distribution width (RBC) [Ratio]14.5 %High11.8-14.4[facility] HospitalComment on above:Performed By: #### CDP, CP, LIP, TROPI, LIPRF, GLYHGB #### [facility] [address] [place] [address] Die Caster: Brandon Anaya MDHematocrit (Bld) [Volume fraction]42.7 %Normal 36.3-47.1MSutter Tracy Community HospitalComment on above:Performed By: #### CDP, CP, LIP, TROPI, LIPRF, GLYHGB #### [facility] [address] [place] [address] Die Caster: Brandon Anaya MDHemoglobin (Bld) [Mass/Vol]13.5 g/dLNormal 11.9-15.1MSutter Tracy Community HospitalComment on above:Performed By: #### CDP, CP, LIP, TROPI, LIPRF, GLYHGB #### [facility] [address] [place] [address] Die Caster: Brandon Anaya MDImmature granulocytes (Bld) [#/Vol]1 %Unru7DxzhsMercy Health Perrysburg HospitalComment on above:Performed By: #### CDP, CP, LIP, TROPI, LIPRF, GLYHGB #### [facility] [address] [place] [address] Die Caster: Brandon Anaya MDLymphocytes (Bld) [#/Vol]1.05 10*3/uLLow 1.10-3.70[facility] HospitalComment on above:Performed By: #### CDP, CP, LIP, TROPI, LIPRF, GLYHGB #### [facility] [address] [place] [address] Die Caster: Luiza Mcmanushocytes/100 WBC (Bld)14 %Kcd15-08QpqcqMercy Health Perrysburg HospitalComment on above:Performed By: #### CDP, CP, LIP, TROPI, LIPRF, GLYHGB #### [facility] [address] [place] [address] Die Caster: STEFFANIE Mcmanus (RBC) [Entitic mass]29.8 dvMvczgs34.2-33.5 [facility] HospitalComment on above:Performed By: #### CDP, CP, LIP, TROPI, LIPRF, GLYHGB #### [facility] [address] [place] [address] Die Caster: LIZZY McmanusCHC (RBC) [Mass/Vol]31.6 g/vPLiwrld26.4-34.8 [facility] HospitalComment on above:Performed By: #### CDP, CP, LIP, TROPI, LIPRF, GLYHGB #### [facility] [address] [place] [address] Die Caster: LIZZY McmanusCV (RBC) [Entitic vol]94.3 eSRntayq44.6-102.9 [facility] HospitalComment on above:Performed By: #### CDP, CP, LIP, TROPI, LIPRF, GLYHGB #### [facility] [address] [place] [address] Die Caster: LIZZY Mcmanusonocytes (Bld) [#/Vol]0.65 10*3/uLNormal 0.10-1.20[facility] HospitalComment on above:Performed By: #### CDP, CP, LIP, TROPI, LIPRF, GLYHGB #### [facility] [address] [place] [address] Die Caster: LIZZY Mcmanusonocytes/100 WBC (Bld)9 %Normal3-12[facility] HospitalComment on above:Performed By: #### CDP, CP, LIP, TROPI, LIPRF, GLYHGB #### [address] [address] Die Caster: Modesta Mcmanusophil (Seg)74 %Kkmi83-16BxsrkMercy Health Perrysburg HospitalComment on above:Performed By: #### CDP, CP, LIP, TROPI, LIPRF, GLYHGB #### [facility] [address] [place] [address] Die Caster: Brandon Anaya MDNRBC Automated0.0 per 100 WBCNormal0.0[facility] HospitalComment on above:Performed By: #### CDP, CP, LIP, TROPI, LIPRF, GLYHGB #### [facility] [address] [place] [address] Die Caster: BLADIMIR Mcmanuslatelet mean volume (Bld) [Entitic vol]10.9 fL Normal8.1-13.5[facility] HospitalComment on above:Performed By: #### CDP, CP, LIP, TROPI, LIPRF, GLYHGB #### [facility] [address] [place] [address] Die Caster: Bon Mcmanus (Bld) [#/Vol]170 10*3/zRPfzcby945-497 [facility] HospitalComment on above:Performed By: #### CDP, CP, LIP, TROPI, LIPRF, GLYHGB #### [address] [address] Die Caster: RICHA Mcmanus (Bld) [#/Vol]4.53 10*6/uLNormal3.95-5.11 [facility] HospitalComment on above:Performed By: #### CDP, CP, LIP, TROPI, LIPRF, GLYHGB #### [address] [address] Die Caster: RICHA Mcmanus morphology finding Nom (Bld)ANISOCYTOSIS PRESENTNormalMercy Health Perry[facility] HospitalComment on above:Performed By: #### CDP, CP, LIP, TROPI, LIPRF, GLYHGB #### [address] [address] Die Caster: LUCIAN Mcmanus (Bld) [#/Vol]7.4 10*3/uLNormal3.5-11.3MSutter Tracy Community HospitalComment on above:Performed By: #### CDP, CP, LIP, TROPI, LIPRF, GLYHGB #### [facility] [address] [place] [address] Die Caster: Gustabo Mcmanus Diff PerformedNOT REPORTEDNormalCleveland Clinic Euclid Hospitalcy John George Psychiatric PavilionComment on above:Performed By: #### CDP, CP, LIP, TROPI, LIPRF, GLYHGB #### [facility] [address] [place] [address] Die Caster: Bon Mcmanus (Bld) [#/Vol]NOT REPORTEDNormalMercy Health Perrysburg HospitalComment on above:Performed By: #### CDP, CP, LIP, TROPI, LIPRF, GLYHGB #### [employer] [address] [place], [place] [id number] Die Caster: Brandon Anaya MDW MorphologyNOT REPORTEDFulton County Health CenterComment on above:Performed By: #### CDP, CP, LIP, TROPI, LIPRF, GLYHGB #### [employer] [address] [place], [place] [id number] Die Caster: Brandon Anaya, MDCT HEAD WO CONTRASTon [id number] HEAD WO CONTRASTEXAMINATION: CT OF THE HEAD [...] Signed by: Naga Browning MD 10/10/19 Final [facility]1. No acute intracranial abnormality. 2. Mild chronic white matter microvascular ischemic changes.[facility], KYEXAMINATION: CT OF THE HEAD WITHOUT [...] abnormality of the visualized skull or soft tissues.ToVieFor, Radha, Blanco Incoming Radiant Results From [employer] - 10/10/2019 5:31 PM EDT EXAMINATION: CT [...] Mild chronic white matter microvascular ischemic changes. ToVieFor, KYCTA HEAD NECK W CONTRASTon [id number] HEAD NECK W CONTRASTEXAMINATION: CTA OF THE [...] Initial FINDINGS: CTA NECK: AORTIC ARCH/ARCH VESSELS: Lnma-jb-btpozkdj atherosclerotic plaque at the arch arch and [...] by: Naga Browning MD 10/10/19 Final resultNormalMercy John George Psychiatric PavilionEXAMINATION: CTA OF THE HEAD AND NECK WITH [...] Initial FINDINGS: CTA NECK: AORTIC ARCH/ARCH VESSELS: Gwgf-xy-pdoeljgc atherosclerotic plaque at the arch arch and [...] The salmeron-white differentiation is maintained. [facility], KY1. No acute arterial abnormality or hemodynamically significant arterial stenosis in the head or neck. 2. No intracranial aneurysm. [facility], Radha, Blanco Incoming Radiant Results From [employer] - 10/10/2019 5:36 PM EDT EXAMINATION: CTA [...] Initial FINDINGS: CTA NECK: AORTIC ARCH/ARCH VESSELS: Fltt-mi-xqtoakss atherosclerotic plaque at the arch arch and [...] head or neck. 2. No intracranial aneurysm. [facility], KYHemoglobin A1Con [id number] (Bld) [Mass fraction]111 mg/dLNoKettering HealthComment on above:Result Comment: The ADA and AACC recommend providing the estimated average glucose result to permit better patient understanding of their HBA1c result.Performed By: #### CDP, CP, LIP, TROPI, LIPRF, GLYHGB #### [employer] [facility] [place] [address] Die Caster: Brandon Anaya MDHbA1c (Bld) [Mass fraction]5.5 %Normal4.0-6.0 [facility] Perrysburg HospitalComment on above:Performed By: #### CDP, CP, LIP, TROPI, LIPRF, GLYHGB #### [employer] [facility] [place], [place] [phone] Die Caster: Brandon Anaya MDGlucose [Mass/Vol]111 mg/dLAdams County Regional Medical Center [place] Comment on above:The ADA and AACC recommend providing the estimated average glucose result to permit better patient understanding of their HBA1c result. HbA1c (Bld) [Mass fraction]5.5 %4 - 6 %[place], KYLACTIC ACID, WHOLE BLOODon 04-07-1773Ihgpgw Acid, Whole Blood1.0 mmol/L0.7 - 2.1 mmol/LMBlanchard Valley Health System [facility] KYLactic Acid,Whole Blon [id number] Acid,Whole Bl1.0 mmol/L Normal0.7-2.1MSutter Tracy Community HospitalComment on above:Performed By: #### KRIS CP, LIP, TROPI, LIPRF, GLYHGB #### [facility] [address] [place] [address] [phone] Die Caster: Yane Mcmanusgnesiumon [id number] [Mass/Vol]2.1 mg/dLNormal1.6-2.6MSutter Tracy Community HospitalComment on above:Performed By: #### CDP, CP, LIP, TROPI, LIPRF, GLYHGB #### [facility] [address] [place] [address] [phone] Die Caster: Yane Mcmanusgnesium [Mass/Vol]2.1 mg/dL1.6 - 2.6 mg/dL [facility], KYOtheron . Subtle sclerosis subjacent to the L2 and L3 superior endplates is age-indeterminate and could represent trabecular condensation associated with acute or subacute endplate fractures. MRI of the lumbar spine is recommended for further evaluation. 2. No acute osseous abnormality of the sacrum or coccyx. 3. Osteopenia.[facility] HospitalRadha Mhpn Incoming Radiant Results From [employer] - 10/10/2019 8:19 PM EDT EXAMINATION: THREE [...] sacrum or coccyx. 3. Osteopenia. [facility] HospitalCLARAEXAMINATION: THREE XRAY VIEWS OF THE SACRUM/COCCYX; THREE [...] urinary bladder. Atherosclerotic calcifications are present.[facility] Glucose Fingerstickon [id number] [Mass/Vol]159 mg/dHTano47 - 105 mg/dLMercy Health Allen Hospital, [place] Interpretation and review of laboratory resultsAbnoMarietta, [place] Glucose [Mass/Vol]186 mg/zRAlrq61 - 105 mg/dLMercy Health Allen Hospital, ALInterpretation and review of laboratory resultsAbnoMarietta, KYGlucose [Mass/Vol] 135 mg/qGBvwm92 - 105 mg/dLMercy Health Allen Hospital, KYInterpretation and review of laboratory resultsAbnoMarietta, KYProcalcitoninon 10-10-2019 Procalcitonin0.15 ng/mLHigh<0.09Mer[facility] Perrysburg HospitalComment on above:Result Comment: Suspected Sepsis: <0.50 [...] entered into the Change in Procalcitonin Calculator (www.xotpoq-phd-bmptofdrra.com) to determine the patient's Mortality Risk Prognosis In healthy neonates, plasma Procalcitonin (PCT) concentrations increase gradually after , reaching peak values at about 24 hours of age then decrease to normal values below 0.5 ng/mL by 48-72 hours of age.Performed By: #### CDP, CP, LIP, TROPI, LIPRF, GLYHGB #### [employer] [address] [place] [address] Die Caster: Brandon Anaya MDInterpretation and review of laboratory results AbnormalYale, KYProcalcitonin0.15 ng/mLHigh<0.09[facility], [place] Comment on above: Suspected Sepsis: <0.50 ng/mL [...] entered into the Change in Procalcitonin Calculator (www.lrcuiq-flo-wxsfitaind.Netformx) to determine the patient's Mortality Risk Prognosis In healthy neonates, plasma Procalcitonin (PCT) concentrations increase gradually after , reaching peak values at about 24 hours of age then decrease to normal values below 0.5 ng/mL by 48-72 hours of age. Sedimentation Rateon [id number] Rate8 mmNormal0-30Mer[facility] Perrysburg HospitalComment on above:Performed By: #### CDP, CP, LIP, TROPI, LIPRF, GLYHGB #### [employer] [address] [place] [address] Die Caster: Shay Mcmanus Rate8 mm0 - 30 mmTrinity Health System w/reflex to FT4on [id number] Qn1.05 m[IU]/LNormal0.30-5.00[facility] Perry[facility] HospitalComment on above:Performed By: #### CDP, CP, LIP, TROPI, LIPRF, GLYHGB #### [employer] [facility] [place] [address] Die Caster: SUSAN Mcmanus with Reflexon [id number] Qn1.05 m[IU]/L [facility], KYXR LUMBAR SPINE (2-3 VIEWS)on [id number] LUMBAR SPINE (2-3 VIEWS)EXAMINATION: THREE XRAY VIEWS [...] Signed by: Naga Browning MD 10/10/19 Final resultNormalMerSutter California Pacific Medical CenterXR SACRUM COCCYX (MIN 2 VIEWS) on [id number] SACRUM COCCYX (MIN 2 VIEWS)EXAMINATION: THREE XRAY [...] Signed by: Naga Browning MD 10/10/19 Final resultNoKettering HealthBeta Hydroxybutyrateon [id number] Hydroxybutyrate0.09 mmol/LNormal0.02-0.27Mer[facility] Perrysburg HospitalComment on above:Performed By: #### ARI, #### [id number] [place] [address] Die Caster: Brandon Anaya MDBeta-Hydroxybutyrateon 10-09-2019 Beta-Hydroxybutyrate0.09 mmol/L0.02 - 0.27 mmol/LMGood Samaritan Hospital, ALCBC WITH AUTO DIFFERENTIALon [id number] (Bld) [#/Vol]0.03 10*3/[facility], KYBasophils/100 WBC (Bld)0 %0 - 2 %[facility], ALDifferential TypeNOT REPORTEDMercy Health [facility] Hospital, KYEosinophils (Bld) [#/Vol]10*3/[facility], [place] Eosinophils/100 WBC (Bld)0 %Low1 - 4 %[place], KYErythrocyte distribution width (RBC) [Ratio]14.2 %11.8 - 14.4 %[facility], [place] Hematocrit (Bld) [Volume fraction]44.6 %36.3 - 47.1 %[facility], [place] Hemoglobin (Bld) [Mass/Vol]14.2 g/dL11.9 - 15.1 g/dLMercy Health Allen Hospital, ALImmature granulocytes (Bld) [#/Vol]1 %Cyih[address] [place] [address], ALImmature granulocytes (Bld) [#/Vol]0.06 10*3/[facility], ALInterpretation and review of laboratory resultsAbnoSouthview Medical Center, ALLymphocytes (Bld) [#/Vol]0.97 10*3/uLLowMercy Health- [place], KYLymphocytes/100 WBC (Bld)13 %Low24 - 43 %[facility], KYMCH (RBC) [Entitic mass]29.7 pg25.2 - 33.5 pgWayne Hospital [place], [place] MCHC (RBC) [Mass/Vol]31.8 g/dL28.4 - 34.8 g/dLWayne Hospital [place], KYMCV (RBC) [Entitic vol]93.3 fL82.6 - 102.9 fLMercy Health Allen Hospital, KYMonocytes (Bld) [#/Vol] 0.52 10*3/uLWayne Hospital [place], KYMonocytes/100 WBC (Bld)7 %3 - 12 %[facility] [place], KYPlatelet mean volume (Bld) [Entitic vol]10.9 fL8.1 - 13.5 fLWayne Hospital [place], KYPlatelets (Bld) [#/Vol]NOT REPORTEDMercy Health [facility] Hospital, KYPlatelets (Bld) [#/Vol]202 10*3/uLMercy Health Allen Hospital, KYRBC (Bld) [#/Vol]4.78 10*6/uL3.95 - 5.11 m/uLMercy Health Allen Hospital, KYRBC morphology finding Nom (Bld)NOT REPORTEDMercy Health [facility] Hospital, ALSegmented neutrophils/100 WBC (Bld)79 %High36 - 65 %[facility], KYSegs Absolute6.10[facility], KYWBC (Bld) [#/Vol]0.0 10*3/uL0.0 per 100 WBCMercy Health Allen Hospital, KYWBC (Bld) [#/Vol]7.7 10*3/uLMercy Health Allen Hospital, KYWBC MorphologyNOT REPORTEDMercy Health [facility] Hospital, KYCBC with Diffon [id number]. Basophil0.03 k/uLNormal0.00-0.20[facility] HospitalComment on above:Performed By: #### CDP, CP, LIP, TROPI, LIPRF, GLYHGB #### [employer] [address] [place] [address] Die Caster: Marie Mcmanus.Imm.Granulocyte0.06 k/uLNormal0.00-0.30[facility] Perry[facility] HospitalComment on above:Performed By: #### CDP, CP, LIP, TROPI, LIPRF, GLYHGB #### [address] [address] Die Caster: Marie Mcmanus.Neutrophil (Seg)6.10 k/uLNormal1.50-8.10 [facility] HospitalComment on above:Performed By: #### CDP, CP, LIP, TROPI, LIPRF, GLYHGB #### [address] [address] Die Caster: Brandon Anaya MDBasophils/100 WBC (Bld)0 %Normal0-2MSutter Tracy Community HospitalComment on above:Performed By: #### CDP, CP, LIP, TROPI, LIPRF, GLYHGB #### [address] [address] Die Caster: Brandon Anaya MDEosinophils (Bld) [#/Vol]10*3/uLNormal0.00-0.44 [facility] HospitalComment on above:Performed By: #### CDP, CP, LIP, TROPI, LIPRF, GLYHGB #### [address] [address] Die Caster: MAU Mcmanusosinophils/100 WBC (Bld)0 %Low1-4Mer[facility] HospitalComment on above:Performed By: #### CDP, CP, LIP, TROPI, LIPRF, GLYHGB #### [address] [address] Die Caster: Brandon Anaya MDErythrocyte distribution width (RBC) [Ratio]14.2 %Pfakva10.8-14.4Mer[facility] Perry[facility] HospitalComment on above:Performed By: #### CDP, CP, LIP, TROPI, LIPRF, GLYHGB #### [facility] [address] [place] [address] Die Caster: Brandon nAaya MDHematocrit (Bld) [Volume fraction]44.6 %Normal 36.3-47.1MSutter Tracy Community HospitalComment on above:Performed By: #### CDP, CP, LIP, TROPI, LIPRF, GLYHGB #### [facility] [address] [place] [address] Die Caster: Brandon Anaya MDHemoglobin (Bld) [Mass/Vol]14.2 g/dLNormal 11.9-15.1MSutter Tracy Community HospitalComment on above:Performed By: #### CDP, CP, LIP, TROPI, LIPRF, GLYHGB #### [place] [address] Die Caster: Brandon Anaya MDImmature granulocytes (Bld) [#/Vol]1 %Fcji9TvsevMercy Health Perrysburg HospitalComment on above:Performed By: #### CDP, CP, LIP, TROPI, LIPRF, GLYHGB #### [facility] [address] [place] [address] Die Caster: Kortney Mcmanusmphocytes (Bld) [#/Vol]0.97 10*3/uLLow 1.10-3.70[facility] HospitalComment on above:Performed By: #### CDP, CP, LIP, TROPI, LIPRF, GLYHGB #### [facility] [address] [place] [address] Die Caster: Luiza Mcmanushocytes/100 WBC (Bld)13 %Uyx10-67KvtliMercy Health Perrysburg HospitalComment on above:Performed By: #### CDP, CP, LIP, TROPI, LIPRF, GLYHGB #### [facility] [address] [place] [address] Die Caster: LIZZY McmanusCH (RBC) [Entitic mass]29.7 lwXntigd56.2-33.5 [facility] HospitalComment on above:Performed By: #### CDP, CP, LIP, TROPI, LIPRF, GLYHGB #### [facility] [address] [place] [address] Die Caster: LIZZY McmanusCHC (RBC) [Mass/Vol]31.8 g/fKNnvxrh63.4-34.8 [facility] HospitalComment on above:Performed By: #### CDP, CP, LIP, TROPI, LIPRF, GLYHGB #### [facility] [address] [place] [address] Die Caster: LIZYZ McmanusCV (RBC) [Entitic vol]93.3 wQUkegvo55.6-102.9 [facility] HospitalComment on above:Performed By: #### CDP, CP, LIP, TROPI, LIPRF, GLYHGB #### [facility] [address] [place] [address] Die Caster: LIZZY Mcmanusonocytes (Bld) [#/Vol]0.52 10*3/uLNormal 0.10-1.20[facility] HospitalComment on above:Performed By: #### CDP, CP, LIP, TROPI, LIPRF, GLYHGB #### [facility] [address] [place] [address] Die Caster: LIZZY Mcmanusonocytes/100 WBC (Bld)7 %Normal3-12[facility] HospitalComment on above:Performed By: #### CDP, CP, LIP, TROPI, LIPRF, GLYHGB #### [facility] [address] [place] [address] Die Caster: Brandon Anaya MDNeutrophil (Seg)79 %Ygsq92-78LeqhdMercy Health Perrysburg HospitalComment on above:Performed By: #### CDP, CP, LIP, TROPI, LIPRF, GLYHGB #### [facility] [address] [place] [address] Die Caster: JOSIE Mcmanus Automated0.0 per 100 WBCNormal0.0[facility] HospitalComment on above:Performed By: #### CDP, CP, LIP, TROPI, LIPRF, GLYHGB #### [facility] [address] [place] [address] Die Caster: Nadeem Mcmanus mean volume (Bld) [Entitic vol]10.9 fL Normal8.1-13.5[facility] HospitalComment on above:Performed By: #### CDP, CP, LIP, TROPI, LIPRF, GLYHGB #### [facility] [address] [place] [address] Die Caster: Bon Mcmanus (Bld) [#/Vol]202 10*3/bNHrorvq412-228 [facility] HospitalComment on above:Performed By: #### CDP, CP, LIP, TROPI, LIPRF, GLYHGB #### [facility] [address] [place] [address] Die Caster: RICHA Mcmanus (Bld) [#/Vol]4.78 10*6/uLNormal3.95-5.11 [facility] HospitalComment on above:Performed By: #### CDP, CP, LIP, TROPI, LIPRF, GLYHGB #### [facility] [address] [place] [address] Die Caster: LUCIAN Mcmanus (Bld) [#/Vol]7.7 10*3/uLNormal3.5-11.3MSutter Tracy Community HospitalComment on above:Performed By: #### CDP, CP, LIP, TROPI, LIPRF, GLYHGB #### [facility] [address] [place] [address] Die Caster: Gustabo Mcmanus Diff PerformedNOT REPORTEDNormalMercy Health Perrysburg HospitalComment on above:Performed By: #### CDP, CP, LIP, TROPI, LIPRF, GLYHGB #### [facility] [address] [place] [address] Die Caster: BLADIMIR Mcmanuslatelets (Bld) [#/Vol]NOT REPORTEDNoKettering HealthComment on above:Performed By: #### CDP, CP, LIP, TROPI, LIPRF, GLYHGB #### [facility] [address] [place] [address] Die Caster: RICHA Mcmanus morphology finding Nom (Bld)NOT REPORTED [facility] County Health CenterComment on above:Performed By: #### CDP, CP, LIP, TROPI, LIPRF, GLYHGB #### [facility] [address] [place] [address] Die Caster: LUCIAN Mcmanus MorphologyNOT REPORTEDFulton County Health CenterComment on above:Performed By: #### CDP, CP, LIP, TROPI, LIPRF, GLYHGB #### [facility] [address] [place] [address] Die Caster: NEHAL McmanusOVIToribio-19, PCRon [id number]-CoV-2MercAdventHealth Daytona Beach, VRYFGE-IuN-1, PCRMercy Health Allen Hospital, EIMJAP-PkP-8, RapidNot Detected Not [place], KYComcorewell health big rapids hospital on above: Rapid NAAT: The specimen [...] management decisions. Fact sheet for Healthcare Providers: https://www.fda.gov/media/705856/download Fact sheet for Patients: https://www.fda.gov/media/083975/download Methodology: Isothermal Nucleic Acid Amplification Source.NASOPHARYNGEAL SWABMercy Health Allen Hospitalxaitment ALCT CHEST PULMONARY EMBOLISM W CONTRASTon [id number] CHEST PULMONARY EMBOLISM W CONTRASTEXAMINATION: CTA OF [...] Signed by: Forrest Darby MD 10/09/19 Final resultNormalMercy Health Perrysburg HospitalNo central or segmental pulmonary embolus. No acute pulmonary process. Emphysema.[facility], [place] EXAMINATION: CTA OF THE CHEST 10/09/2019 5:52 [...] No focal consolidation. Bones: Thoracic spine degenerative changes.ToVieForRadha Mhpn Incoming Radiant Results From [employer] - 10/09/2019 8:31 AM EDT EXAMINATION: CTA [...] pulmonary embolus. No acute pulmonary process. Emphysema. ToVieForRick Metabolic Profon 10-09-2019(cont.)NormalMercy Health Perrysburg HospitalComment on above:Result Comment: Average GFR for 70 or more years old: 75 mL/min/1.73sq m Chronic Kidney Disease: <60 mL/min/1.73sq m Kidney failure: <15 mL/min/1.73sq m eGFR calculated using average adult body mass. Additional eGFR calculator available at: http://www.[employer].com/multiple_crcl_2012.htmPerformed By: #### CDP, CP, LIP, TROPI, LIPRF, GLYHGB #### [address] [address] Die Caster: Brandon Anaya MDAlbumin [Mass/Vol]4.1 g/dLNormal3.5-5.2MSutter Tracy Community HospitalComment on above:Performed By: #### CDP, CP, LIP, TROPI, LIPRF, GLYHGB #### [place] [address] Die Caster: Brandon Anaya MDAlbumin/Globulin [Mass ratio]1.6 {ratio}Normal 1.0-2.5[facility] HospitalComment on above:Performed By: #### CDP, CP, LIP, TROPI, LIPRF, GLYHGB #### [facility] [address] [place] [address] Die Caster: Po Mcmanus Phos90 U/IEmsnal08-647KwdyiMercy Health Perrysburg HospitalComment on above:Performed By: #### CDP, CP, LIP, TROPI, LIPRF, GLYHGB #### [place] [address] Die Caster: Brandon Anaya MDALT [Catalytic activity/Vol]15 U/LNormal5-33 [facility] HospitalComment on above:Performed By: #### CDP, CP, LIP, TROPI, LIPRF, GLYHGB #### [facility] [address] [place] [address] Die Caster: James Mcmanus gap [Moles/Vol]18 mmol/LHigh9-17[facility] HospitalComment on above:Performed By: #### CDP, CP, LIP, TROPI, LIPRF, GLYHGB #### [facility] [address] [place] [address] Die Caster: Brandon Anaya MDAST [Catalytic activity/Vol]11 U/LNormal<32[facility] HospitalComment on above:Performed By: #### CDP, CP, LIP, TROPI, LIPRF, GLYHGB #### [address] [address] Die Caster: Brandon Anaya MDBilirubin Ql (U)0.39 mg/dLNormal0.3-1.2Mfayette county memorial hospitaly [facility] Psychiatric PavilionComment on above:Performed By: #### CDP, CP, LIP, TROPI, LIPRF, GLYHGB #### [address] [address] Die Caster: NEHAL Mcmanusalcium [Mass/Vol]9.5 mg/dLNormal8.6-10.4[facility] HospitalComment on above:Performed By: #### CDP, CP, LIP, TROPI, LIPRF, GLYHGB #### [address] [address] Die Caster: Brandon Anaya MDChloride [Moles/Vol]99 mmol/CFlyboh98-922DdfnwMercy Health Perrysburg HospitalComment on above:Performed By: #### CDP, CP, LIP, TROPI, LIPRF, GLYHGB #### [facility] [address] [place] [address] Die Caster: Brandon Anaya MDCO2 [Moles/Vol]24 mmol/ATanpew99-59VezsoMercy Health Perrysburg HospitalComment on above:Performed By: #### CDP, CP, LIP, TROPI, LIPRF, GLYHGB #### [facility] [address] [place] [address] Die Caster: NEHAL Mcmanusreatinine [Mass/Vol]0.63 mg/dLNormal0.50-0.90 [facility] HospitalComment on above:Performed By: #### CDP, CP, LIP, TROPI, LIPRF, GLYHGB #### [address] [address] Die Caster: Brandon Anaya MDGFR, Amer>60Normal>60Mer[facility] Psychiatric PavilionComment on above:Performed By: #### CDP, CP, LIP, TROPI, LIPRF, GLYHGB #### [place] [address] Die Caster: Brandon Anaya MDGFR,non Amer>60Normal>60MerSutter California Pacific Medical CenterComment on above:Performed By: #### CDP, CP, LIP, TROPI, LIPRF, GLYHGB #### [place] [address] Die Caster: Brandon Anaya MDGlucose [Mass/Vol]208 mg/gKLmin24-25ReserSutter Tracy Community HospitalComment on above:Performed By: #### CDP, CP, LIP, TROPI, LIPRF, GLYHGB #### [place] [address] Die Caster: BLADIMIR Mcmanusotassium [Moles/Vol]3.9 mmol/LNormal3.7-5.3 [facility] HospitalComment on above:Performed By: #### CDP, CP, LIP, TROPI, LIPRF, GLYHGB #### [place] [address] Die Caster: Brandon Anaya MDProtein [Mass/Vol]6.6 g/dLNormal6.4-8.3MSutter Tracy Community HospitalComment on above:Performed By: #### CDP, CP, LIP, TROPI, LIPRF, GLYHGB #### [address] [address] Die Caster: FABIANA Mcmanusodium [Moles/Vol]141 mmol/TBwdtbj341-087ClxufMercy Health Perrysburg HospitalComment on above:Performed By: #### CDP, CP, LIP, TROPI, LIPRF, GLYHGB #### [facility] [address] [place] [address] Die Caster: Brandon Anaya MDUrea nitrogen [Mass/Vol]17 mg/dLNormal8-23[facility] HospitalComment on above:Performed By: #### CDP, CP, LIP, TROPI, LIPRF, GLYHGB #### [facility] [address] [place] [address] Die Caster: RADHA Mcmanus/CRE RatioNOT REPORTEDNormal9-20[facility] HospitalComment on above:Performed By: #### CDP, CP, LIP, TROPI, LIPRF, GLYHGB #### [facility] [address] [place] [address] Die Caster: FABIANA Mcmanustaging:NOT REPORTEDNormalMercy Health Perrysburg HospitalComment on above:Performed By: #### CDP, CP, LIP, TROPI, LIPRF, GLYHGB #### [facility] [address] [place] [address] Die Caster: NEHAL Mcmanusomprehensive Metabolic Panelon 10-09-2019 Albumin [Mass/Vol]4.1 g/dL3.5 - 5.2 g/dLMercy Health Allen Hospital, KYAlbumin/Globulin [Mass ratio]1.6 {ratio}[facility]- [place], KYALP [Catalytic activity/Vol]90 U/L35 - 104 U/LMOhio Valley Hospital [place], KYALT [Catalytic activity/Vol]15 U/L5 - 33 U/[facility] [place], KYAnion gap [Moles/Vol]18 mmol/LHigh9 - 17 mmol/LMBlanchard Valley Health [facility]- [place], KYAST [Catalytic activity/Vol]11 U/L<32[facility]- [place], KYBilirubin Ql (U)0.39 mg/dL0.3 - 1.2 mg/dLCommunity Regional Medical Center- [place], KYBun/Cre RatioNOT REPORTEDMerCoulee Medical Center- [place], KYCalcium [Mass/Vol]9.5 mg/dL8.6 - 10.4 mg/dLCommunity Regional Medical Center- [place], KYChloride [Moles/Vol]99 mmol/L98 - 107 mmol/LMupper valley medical center Health- [place], KYCO2 [Moles/Vol]24 mmol/L 20 - 31 mmol/LMercy Health- [place], KYCreatinine [Mass/Vol]0.63 mg/dL0.5 - 0.9 mg/dL [facility], KYGFR >60>60 mL/minWayne Hospital [place], KYGFR Non->60>60 mL/minCommunity Regional Medical Center- [place], KYGFR/1.73 sq M predicted among non-blacks MDRD (S/P/Bld) [Vol rate/Area][facility], KYComment on above:Average GFR for 70 or more years old: 75 mL/min/1.73sq m Chronic Kidney Disease: <60 mL/min/1.73sq m Kidney failure: <15 mL/min/1.73sq m eGFR calculated using average adult body mass. Additional eGFR calculator available at: http://www.[employer]/multiple_crcl_2012.htm GFR/1.73 sq M predicted among non-blacks MDRD (S/P/Bld) [Vol rate/Area]NOT REPORTEDWayne Hospital [place], KYGlucose [Mass/Vol]208 mg/lRGiag86 - 99 mg/dLCommunity Regional Medical Center- [place], KYInterpretation and review of laboratory resultsAbnormalCommunity [facility]- [place], KYPotassium [Moles/Vol]3.9 mmol/L3.7 - 5.3 mmol/LMfayette county memorial hospitaly [facility]- [place], [place]Protein [Mass/Vol]6.6 g/dL6.4 - 8.3 g/dLCommunity [facility]- [place], KYSodium [Moles/Vol] 141 mmol/L135 - 144 mmol/LMfayette county memorial hospitaly [facility]- [place], KYUrea nitrogen [Mass/Vol]17 mg/dL8 - 23 mg/dLCommunity Regional [facility]- [place], KYEKG 12 Leadon 08-81-3389Ybusix Bhdb18HQIOglzy Health- [place], [place] Jwrw27fxsvqkzWpupu Health- [place], [place]YP-R Wttuyxgp071 [facility]- [place], KYQ-T Vwrnxmry047 [facility]- [place], KYQRS Uzzlgeem21 [facility]- [place], KYQTc Calculation (Bazett)466 [facility]- [place], KYR [place]-9degrDayton Children's Hospital- [place] KYT Keah0ooreizoCqwtj Health- [place], KYVentricular Ucab03XUNUnyab Health- [place], KYEdi, Mhpn Incoming Ekg Results From [facility] [place] - 10/09/2019 3:25 PM EDT Normal sinus rhythm Possible Left atrial enlargement Nonspecific ST abnormality Abnormal ECG No previous ECGs availableMercy Health Allen Hospital, KYNormal sinus rhythm Possible Left atrial enlargement Nonspecific ST abnormality Abnormal ECG No previous ECGs availableMercy Health Allen Hospital, KYLIPASEon 06-98-5717Lefnla [Catalytic activity/Vol] 48 U/L13 - 60 U/LMGood Samaritan Hospital, KYLipaseon 37-57-7532Agvajv [Catalytic activity/Vol]48 U/IEuxlve82-24ZtpwdMercy Health Perrysburg HospitalComment on above: Performed By: #### KRIS, CP, LIP, TROPI, LIPRF, GLYHGB #### [employer] [address] [place] [address] Die Caster: Cooper Mcmanus Prof, Fastingon 37-23-1491Kozdirtosaf [Mass/Vol]229 mg/dLHigh<200Mer[facility] Perrysburg HospitalComment on above: Result Comment: Cholesterol Guidelines: <200 Desirable 200-240 Borderline >240 UndesirablePerformed By: #### CDP, CP, LIP, TROPI, LIPRF, GLYHGB #### [employer] [address] [place] [address] [phone] Die Caster: NEHAL Mcmanusholesterol in HDL [Mass/Vol]50 mg/dLNormal>40 [facility] HospitalComment on above:Result Comment: HDL Guidelines: <40 Undesirable 40-59 Borderline >59 DesirablePerformed By: #### CDP, CP, LIP, TROPI, LIPRF, GLYHGB #### [employer] [address] [place] [address] 047[address] Die Caster: NEHAL Mcmanusholesterol in LDL [Mass/Vol]143 mg/dLHigh0-130 [facility] HospitalComment on above:Result Comment: LDL Guidelines: <100 Desirable 100-129 Near to/above Desirable 130-159 Borderline >159 Undesirable Direct (measured) LDL and calculated LDL are not interchangeable tests.Performed By: #### CDP, CP, LIP, TROPI, LIPRF, GLYHGB #### [employer] [address] [place] [address] 76709 Die Caster: Chanel Mcmanus.total/Cholesterol in HDL [Mass ratio]4.6 {ratio}Normal<5Mer[facility] Perrysburg HospitalComment on above: Performed By: #### CDP, CP, LIP, TROPI, LIPRF, GLYHGB #### [employer] [address] [place] [address] 16967 Die Caster: Brandon Anaya MDTriglyceride,Uldrsho383 mg/dLHigh<150Mer[facility] Perrysburg HospitalComment on above:Result Comment: Triglyceride Guidelines: <150 Desirable 150-199 Borderline 200-499 High >499 Very high Based on AHA Guidelines for fasting triglyceride, November 2011.Performed By: #### CDP, CP, LIP, TROPI, LIPRF, GLYHGB #### [employer] [address] [place] [address] 41114 Die Caster: NEHAL Mcmanusholesterol in VLDL [Mass/Vol]NOT REPORTEDNormal 1-30[facility] HospitalComment on above:Performed By: #### CDP, CP, LIP, TROPI, LIPRF, GLYHGB #### [employer] [address] [place] [address] 34904 Die Caster: Brandon Anaya MDLipid, Fastingon 93-75-4553Utvmgtubhxr [Mass/Vol]229 mg/dLHigh<200[place], KYComment on above: Cholesterol Guidelines: <200 Desirable 200-240 Borderline >240 Undesirable Cholesterol in HDL [Mass/Vol]50 mg/dL>40[place], KYComment on above: HDL Guidelines: <40 Undesirable 40-59 Borderline >59 Desirable Cholesterol in LDL [Mass/Vol]143 mg/dLHigh0 - 130 mg/dLYale, [place] Comment on above: LDL Guidelines: <100 Desirable 100-129 Near to/above Desirable 130-159 Borderline >159 Undesirable Direct (measured) LDL and calculated LDL are not interchangeable tests. Cholesterol in VLDL [Mass/Vol]NOT REPORTEDHigh1 - 30 mg/dLYale, [place] Cholesterol.total/Cholesterol in HDL [Mass ratio]4.6 {ratio}<5[place], KYInterpretation and review of laboratory resultsAbnoMarietta, [place] Triglyceride, Kdvtaoq227 mg/dLHigh<150[place], KYComment on above: Triglyceride Guidelines: <150 Desirable 150-199 Borderline 200-499 High >499 Very high Based on AHA Guidelines for fasting triglyceride, November 2011. POC Glucose Fingerstickon 76-57-4829Wphnxra [Mass/Vol]126 mg/gKSocl64 - 105 mg/dLYale, KYInterpretation and review of laboratory resultsAbnoBroadwater, KYSARS-CoV-2on 93-55-3398EPKI-CoV-2NormalMercy Health Perrysburg HospitalComment on above:Performed By: #### COVID #### [employer] [facility] [place] [address] Die Caster: MAEVE Mcmanus-CoV-2,RapidNot DetectedNormnvNOTDESuburban Community Hospital & Brentwood HospitalComment on above:Result Comment: Rapid NAAT: The [...] management decisions. Fact sheet for Healthcare Providers: https://www.fda.gov/media/326537/download Fact sheet for Patients: https://www.fda.gov/media/922363/download Methodology: Isothermal Nucleic Acid AmplificationPerformed By: #### COVID #### [employer] [address] [place] [address] 64693 Die Caster: Toi Mcmanus Source.NASOPHARYNGEAL SWABNormalMercy Health Perrysburg HospitalComment on above:Performed By: #### COVID #### [employer] [address] [place] [address] 86659 Die Caster: Abimael Mcmanus 80-67-0040Vmykzoly I.cardiac [Mass/Vol]10 ng/LNormal0-14Mer[facility] Perry[facility] HospitalComment on above: Result Comment: High Sensitivity Troponin values cannot be compared with other Troponin methodologies. Patients with high levels of Biotin oral intake (i.e >5mg/day) may have falsely decreased Troponin levels. Samples collected within 8 hours of biotin intake may require additional information for diagnosis.Performed By: #### ELMIRA CHAPMAN #### [employer] [address] [place] [address] 67696 Die Caster: Brennan Mcmanus I.cardiac [Mass/Vol]NOT REPORTEDNormal <0.03[facility] Perry[facility] HospitalComment on above:Performed By: #### ELMIRA CHAPMAN #### [employer] [address] [place] [address] 89756 Die Caster: Brennan Mcmanus I.cardiac [Mass/Vol]10 ng/LNormal0-14 [facility] HospitalComment on above:Result Comment: High Sensitivity Troponin values cannot be compared with other Troponin methodologies. Patients with high levels of Biotin oral intake (i.e >5mg/day) may have falsely decreased Troponin levels. Samples collected within 8 hours of biotin intake may require additional information for diagnosis.Performed By: #### CDP, CP, LIP, TROPI, LIPRF, GLYHGB #### [employer] [place], [place] [phone] Die Caster: Brennan Mcmanus I.cardiac [Mass/Vol]NOT REPORTEDCleveland Clinic Medina Hospital ReliantHeart- [place], KYTroponin T.cardiac [Mass/Vol]NOT REPORTED<0.03 ng/mLWayne Hospital [place], KYTroponin, High Czpnjsiwxfy58 ng/L0 - 14 ng/LMercy [facility], KYComment on above: High Sensitivity Troponin values cannot be compared with other Troponin methodologies. Patients with high levels of Biotin oral intake (i.e >5mg/day) may have falsely decreased Troponin levels. Samples collected within 8 hours of biotin intake may require additional information for diagnosis. Troponin I.cardiac [Mass/Vol]NOT REPORTEDNormal<0.03[facility] HospitalComment on above:Performed By: #### CDP, CP, LIP, TROPI, LIPRF, GLYHGB #### [facility] [address] [place] [address] Die Caster: Brennan Mcmanus INayacardiac [Mass/Vol]NOT REPORTEDCleveland Clinic Medina Hospital ReliantHeart- [place], KYTroponin T.cardiac [Mass/Vol]NOT REPORTED<0.03 ng/mLMercy Health Allen Hospital, KYTroponin, High Rosptrnzvie10 ng/L0 - 14 ng/LMercy [facility], KYComcorewell health big rapids hospital on above: High Sensitivity Troponin values cannot be compared with other Troponin methodologies. Patients with high levels of Biotin oral intake (i.e >5mg/day) may have falsely decreased Troponin levels. Samples collected within 8 hours of biotin intake may require additional information for diagnosis. UA w/Reflex Cultureon [id number] Acid,UrTRACEAbnormalNEGMerSutter California Pacific Medical CenterComment on above:Performed By: #### CDP, CP, LIP, TROPI, LIPRF, GLYHGB #### [facility] [address] [place] [address] 19731 Die Caster: Brandon Anaya MDBilirubin, SemiQt,UrNegativeNormalNEGMercy Health Perrysburg HospitalComment on above:Performed By: #### CDP, CP, LIP, TROPI, LIPRF, GLYHGB #### [facility] [address] [place] [address] 49295 Die Caster: NEHAL Mcmanusolor (U)YELLOWNormalYELMerSutter California Pacific Medical CenterComment on above:Performed By: #### CDP, CP, LIP, TROPI, LIPRF, GLYHGB #### [facility] [address] [place] [address] 45592 Die Caster: Brandon Anaya MDGlucose Ql (U)NegativeNormalNEGMercy Health Perrysburg HospitalComment on above:Performed By: #### CDP, CP, LIP, TROPI, LIPRF, GLYHGB #### [facility] [address] [place] [address] 48499 Die Caster: Brandon Anaya MDHemoglobin, UrNegativeNormalNEGMercy Health Perrysburg HospitalComment on above:Performed By: #### CDP, CP, LIP, TROPI, LIPRF, GLYHGB #### [facility] [address] [place] [address] 42544 Die Caster: Brandon Anaya MDLeukocyte esterase Test strip Ql (U)Negative NormalNEGMercy Health Perrysburg HospitalComment on above:Performed By: #### CDP, CP, LIP, TROPI, LIPRF, GLYHGB #### [facility] [address] [place] [address] 87370 Die Caster: Brandon Anaya MDNitrite,UrNegativeNormalNEGMercy Health Perrysburg HospitalComment on above:Performed By: #### CDP, CP, LIP, TROPI, LIPRF, GLYHGB #### [facility] [address] [place] [address] 05600 Die Caster: Bladimir Mcmanus (U)5.5 [pH]Normal5.0-8.0Mer[facility] Perry[facility] HospitalComment on above:Performed By: #### CDP, CP, LIP, TROPI, LIPRF, GLYHGB #### [facility] [address] [place] [address] 16348 Die Caster: BLADIMIR Mcmanushealthsouth - specialty hospital of union Ql (U)1+AbnormalNEGMercy Health Perrysburg HospitalComment on above:Performed By: #### CDP, CP, LIP, TROPI, LIPRF, GLYHGB #### [facility] [address] [place] [address] 28557 Die Caster: FABIANA Mcmanuspecific gravity (U) [Rel density]1.086High 1.005-1.030[facility] HospitalComment on above:Performed By: #### CDP, CP, LIP, TROPI, LIPRF, GLYHGB #### [facility] [address] [place] [address] 84926 Die Caster: Gwendolyn McmanusidityCLEARNoalCClermont County HospitalComment on above:Performed By: #### CDP, CP, LIP, TROPI, LIPRF, GLYHGB #### [facility] [address] [place] [address] 72575 Die Caster: Jackie Mcmanus,UrNormalNormalPike Community HospitalComment on above:Performed By: #### CDP, CP, LIP, TROPI, LIPRF, GLYHGB #### [facility] [address] [place] [address] 16797 Die Caster: Jeni McmanusNOT REPORTEDNoKettering HealthComment on above:Performed By: #### CDP, CP, LIP, TROPI, LIPRF, GLYHGB #### [facility] [address] [place] [address] Die Caster: Brandon Anaya MDURINALYSIS, MICROon [id number], UANOT REPORTEDNoneMercy Health- [place], KYBacteria, UANOT REPORTEDNoneMercy [...] [place], [place]-[facility]- [place], [place]US ABDOMEN LIMITEDon [id number] ABDOMEN LIMITED EXAMINATION: RIGHT UPPER QUADRANT ULTRASOUND 10/09/2019 3:35 pm COMPARISON: None. 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 LIVER, GALLBLADDER, PANCREASon [id number]: RIGHT UPPER QUADRANT ULTRASOUND 10/09/2019 3:35 pm COMPARISON: None. 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 IMPRESSION: Unremarkable right upper quadrant ultrasound. ToVieFor, CLARAUrinalysis Reflex to Cultureon [id number] Urine NegativeNEGATIVECleveland Clinic Euclid HospitalJobzella [facility] HospitalNo [employer] [place], [place]Color, UAYELLOWYELLOWCommunity Regional Medical CenterNo [employer] [place], [place] Glucose, UrNegativeNEGATIVEMercy Health- [place], KYInterpretation and review of laboratory resultsAbnormalMercy Health- [place], KYKetones Ql (U)TRACEAbnormal NEGATIVEMercy Health- [place], KYLeukocyte esterase Test strip Ql (U)NegativeNEGATIVE [facility]- [place], KYNitrite, UrineNegativeNEGATIVEMercy Health- [place], KYpH, UA5.5 [facility]- [place], KYProtein (U) [Mass/Vol]1+AbnormalNEGATIVEMercy Health- [place], [place] Specific [place], UA1.086HighMercy Health- [place], KYTurbidity UACLEARCLEARMercy Health- [place], KYUrinalysis CommentsNOT REPORTEDMercy Health- [place], KYUrine Hgb NegativeNEGATIVEMercy Health- [place], KYUrobilinogen, UrineNormalNormalMercy Health- [place], KYUrinalysis,Microon 10-09-2019-----NormalCleveland Clinic Euclid Hospitalcy [facility] Comment on above:Performed By: #### CDP, CP, LIP, TROPI, LIPRF, GLYHGB #### [employer] [address] [place] [address] [phone] Die Caster: Brandon Anaya MDEpithelial cells LM.HPF (Urine sed) [#/Area]10 TO 41Gcaqvw4-5QcyavMercy Health Perrysburg HospitalComment on above:Performed By: #### CDP, CP, LIP, TROPI, LIPRF, GLYHGB #### [employer] [address] [place] [address] 88672 Die Caster: DREW Mcmanus (U) [#/Vol]0 TO 5Vpjqaf0-5Yqmnx [facility] PavilionComment on above:Performed By: #### CDP, CP, LIP, TROPI, LIPRF, GLYHGB #### [employer] [address] [place] [address] 51998 Die Caster: Brandon Anaya MDWBC (U) [#/Vol]0 TO 0Uookbh5-2Rsqfl [facility] PavilionComment on above:Performed By: #### CDP, CP, LIP, TROPI, LIPRF, GLYHGB #### [facility] [address] [place] [address] 08742 Die Caster: Iwona Mcmanus sediment LM Ql (Urine sed)NOT REPORTED NormalNONEMercy [facility] PavilionComment on above:Performed By: #### CDP, CP, LIP, TROPI, LIPRF, GLYHGB #### [facility] [address] [place] [address] 24372 Die Caster: Rita Mmcanus LM.HPF (Urine sed) [#/Area]NOT REPORTED NormalNONEMeMotion Picture & Television HospitalComment on above:Performed By: #### CDP, CP, LIP, TROPI, LIPRF, GLYHGB #### [facility] [address] [place] [address] 56440 Die Caster: Maria Elena Mcmanus LM.LPF (Urine sed) [#/Area]NOT REPORTED Normal0-2[facility] PavilionComment on above:Performed By: #### CDP, CP, LIP, TROPI, LIPRF, GLYHGB #### [facility] [address] [place] [address] 60649 Die Caster: Andrew Mcmanus LM Nom (Urine sed)NOT REPORTEDNormal NONEMercy [facility] PavilionComment on above:Performed By: #### CDP, CP, LIP, TROPI, LIPRF, GLYHGB #### [facility] [address] [place] [address] 31760 Die Caster: Brandon Anaya MDEpithelial, RenalNOT UPLIFTKUZtnrhi8Psxvf [facility] PavilionComment on above:Performed By: #### CDP, CP, LIP, TROPI, LIPRF, GLYHGB #### [facility] [address] [place] [address] 28149 Die Caster: Yulia Mcmanus StrandsNOT REPORTEDNormalNONEMercy [facility] Medical CenterComment on above:Performed By: #### CDP, CP, LIP, TROPI, LIPRF, GLYHGB #### [facility] [address] [place] [address] Die Caster: Brandon Anaya MDOther ObservationsNOT REPORTEDNormalNREQMercy Health Perrysburg HospitalComment on above:Performed By: #### CDP, CP, LIP, TROPI, LIPRF, GLYHGB #### [facility] [address] [place] [address] Die Caster: Brandon Anaya MDTrichomonasNOT REPORTEDNormalNONEMeMotion Picture & Television HospitalComment on above:Performed By: #### CDP, CP, LIP, TROPI, LIPRF, GLYHGB #### [facility] [address] [place] [address] 61703 Die Caster: Brandon Anaya MDYeast LM Ql (Urine sed)NOT REPORTEDNormalCLEARSKY REHABILITATION HOSPITAL OF AVONDALEE [facility] HospitalComment on above:Performed By: #### CDP, CP, LIP, TROPI, LIPRF, GLYHGB #### [facility] [address] [place] [address] 12395 Die Caster: LORIE Mcmanus ABDOMEN (KUB) (SINGLE AP VIEW)on [id number] ABDOMEN (KUB) (SINGLE AP VIEW)EXAMINATION: ONE SUPINE [...] Signed by: Naga Browning MD 10/09/19 Final resultNoKettering HealthNo evidence of bowel obstruction.[facility], KYEXAMINATION: ONE SUPINE XRAY VIEW(S) OF THE ABDOMEN 10/09/2019 7:17 pm COMPARISON: None. HISTORY: ORDERING SYSTEM PROVIDED HISTORY: r/o SBO TECHNOLOGIST PROVIDED HISTORY: r/o SBO Reason for Exam: port Supine FINDINGS: Nonspecific, nonobstructive bowel gas pattern with paucity of bowel gas. Atherosclerotic calcifications. Retained contrast in the urinary bladder. No acute osseous abnormality.[facility] HospitalRadha Mhpn Incoming Radiant Results From Shineoncribe/Pacs - 10/09/2019 7:35 PM EDT EXAMINATION: ONE [...] No evidence of bowel obstruction. [facility] HospitalEdgardosteroneon 59-27-9987Himhruizpsr5.8 ng/dLNormalOhiohealth Grant Medical CenterComment on above:Result Comment: (NOTE)INTERPRETIVE INFORMATION: Aldosterone, SerumReference [...] c referenceintervals for this test in the [employer] Laboratory Test Directory([employer]).Performed by [facility],[address] [place] [address] ckk.[employer], Nik Rosas MD, Lab.DirectorPerformed at [facility] [address] [facility] [place] [address] ([phone] Performed By: #### AG ####[facility] [place] [address] #### MARYAM, AREN ####[facility], [place] [phone] Renin Activityon 24-18-6073Hbptg Activity0.1 ng/mL/hrNormThe Christ HospitalComment on above:Result Comment: (NOTE)INTERPRETIVE INFORMATION: Renin ActivityAdult, Normal sodium diet: Supine ................. 0.2-1.6 ng/mL/hr Upright ................ 0.5-4.0 ng/mL/hrChildren, Normal sodium diet, Supine: [place] (1-7 days) ..... 2.0-35.0 ng/mL/hr Cord blood [...] activity when angiotensinogen isdecreased.See Compliance Statement D: www.[employer]/CSPerformed by [facility],[address] [place] [address] cfg.[employer], Nik Rosas MD, Lab. DirectorPerformed at [address] [address] [phone] By: #### CORTI ####[address] [place] [address] #### AALD, AREN ####[address] [phone] Metab w/rfx MGon 06-29-2017(cont.)NormalOhiohealth Grant Medical CenterComment on above:Result Comment: Average GFR for 70 or more years old: 75 mL/min/1.73sq mChronic Kidney Disease: <60 mL/min/1.73sq mKidney failure: <15 mL/min/1.73sq meGFR calculated using average adult body mass. Additional eGFR calculator available at:http://www.[employer].Netformx/multiple_crcl_2012.htmPerformedat [address] [address] [phone] By: #### CDP, BMPX, TROPI ####[address] [phone] gap10 mmol/LNormal9-17[facility] Grant Medical CenterComment on above:Performed By: #### CDP, BMPX, TROPI ####[address] [phone] mg/dLNormal8.6-10.4[facility] Grant Medical CenterComment on above:Performed By: #### CDP, BMPX, TROPI ####[address] [address] Hdqcqrfl781 mmol/GCoyshc77-025QmakrOhiohealth Grant Medical CenterComment on above:Performed By: #### CDP, BMPX, TROPI ####[address] [address] ZG337 mmol/ZMvpufy91-61YotmxWilson HealthComment on above:Performed By: #### CDP, BMPX, TROPI ####[address] [address] Hqmbyzgrlj5.66 mg/dLNormal0.50-0.90 [facility] Medical CenterComcorewell health big rapids hospital on above:Performed By: #### CDP, BMPX, TROPI ####[address] [address] eGFR (non-black)mL/min/{1.73_m2}Normal>60[facility] Medical CenterComcorewell health big rapids hospital on above: Performed By: #### CDP, BMPX, TROPI ####[address] [address] Glucose mass hfjv714 mg/sHCxdf56-58SaeemProMedica Toledo HospitalComment on above:Performed By: #### CDP, BMPX, TROPI ####[address] [address] Potassium molar conc4.1 mmol/LNormal3.7-5.3MProMedica Toledo HospitalComment on above: Performed By: #### CDP, BMPX, TROPI ####[address] [address] Qalxee673 mmol/TRsswyb066-544ZrlarOhiohealth Grant Medical CenterComment on above:Performed By: #### CDP, BMPX, TROPI ####[address] [address] Urea gdfoxkbf42 mg/dLNormal8-23[facility] Grant Medical CenterComment on above:Performed By: #### CDP, BMPX, TROPI ####[address] [phone]/CRE RatioNOT REPORTEDNormal9-20[facility] Comment on above:Performed By: #### CDP, BMPX, TROPI ####[address] [phone]:NOT REPORTEDNormal [facility] Grant Medical CenterComment on above:Performed By: #### CDP, BMPX, TROPI ####[address] [phone] with Diffon [id number]. Basophil0.00 k/uLNormal0.0-0.2[facility] Medical CenterComment on above:Result Comment: Performed at [address] [address] [phone] By: #### CDP, BMPX, TROPI ####[address] [address] [phone].Neutrophil (Seg)3.80 k/uLNormal1.3-9.1Mfayette county memorial hospitaly [facility] Comment on above:Performed By: #### CDP, BMPX, TROPI ####[address] [address] Basophils/100 WBC Auto (Bld)1 %Normal0-2[facility] Medical CenterComment on above:Performed By: #### CDP, BMPX, TROPI ####[address] [address] Lzjmqptywlu3.20 10*3/uLNormal0.0-0.4[facility] Comment on above:Performed By: #### CDP, BMPX, TROPI ####[address] [address] Eosinophils/100 leukocytes 2 %Normal0-4[facility] Grant Medical CenterComment on above:Performed By: #### CDP, BMPX, TROPI ####[address] [phone] distribution width Auto Ratio (RBC)14.5 %Zhitse89.5-14.9 [facility] CenterComment on above:Performed By: #### CDP, BMPX, TROPI ####[address] [address] Erythrocytes (RBC)4.36 10*6/uLNormal4.0-5.2MProMedica Toledo HospitalComment on above:Performed By: #### CDP, BMPX, TROPI ####[address] [address] Hematocrit (HCT)38.3 %Hbtool71-73NcxsuOhiohealth Grant Medical CenterComment on above:Performed By: #### CDP, BMPX, TROPI ####[address] [address] Hemoglobin mass conc (Bld)12.9 g/wHUsxtbl72.0-16.0[facility] Comment on above:Performed By: #### CDP, BMPX, TROPI ####[address] [address] Qlikfrpntol6.20 10*3/uL Normal1.0-4.8[facility] Grant Medical CenterComment on above:Performed By: #### CDP, BMPX, TROPI ####[address] [phone]/100 bobeldprsx15 %Pzqkef89-31DxlefOhiohealth Grant Medical Center Comment on above:Performed By: #### CDP, BMPX, TROPI ####[address] [address] SVW14.5 jwNuvvnf85-31ZvvalOhiohealth Grant Medical CenterComment on above:Performed By: #### CDP, BMPX, TROPI ####[address] [address] MCHC mass conc (RBC)33.6 g/nJPzqzgr01-31VqxkgWilson HealthComment on above: Performed By: #### CDP, BMPX, TROPI ####[address] [address] UAA50.8 vPPxpgmc03-305MbdsfOhiohealth Grant Medical CenterComment on above:Performed By: #### CDP, BMPX, TROPI ####[address] [address] Hgpqfhlbq2.50 10*3/uLNormal0.1-1.3MercBucyrus Community HospitalComment on above:Performed By: #### CDP, BMPX, TROPI ####[address] [address] Monocytes/100 leukocytes8 %High1-7[facility] Comment on above:Performed By: #### CDP, BMPX, TROPI ####[address] [address] Neutrophil (Seg)57 %Normal 36-66MerWilson HealthComment on above:Performed By: #### CDP, BMPX, TROPI ####[address] [phone] mean volume (PMV)8.5 fLNormal6.0-12.0[facility] Grant Medical CenterComment on above:Performed By: #### CDP, BMPX, TROPI ####[address] [address] Cqjeuubgl231 10*3/hFNlelad803-543WafssWilson HealthComment on above:Performed By: #### CDP, BMPX, TROPI ####[address] [address] WBC (Leukocytes)6.7 10*3/uLNormal3.5-11.0[facility] Medical CenterComment on above:Performed By: #### CDP, BMPX, TROPI ####[address] [address] Auto Diff PerformedNOT REPORTEDNoUniversity Hospitals Beachwood Medical Center on above:Performed By: #### CDP, BMPX, TROPI ####[address] [address] Erythrocyte morphologyNOT REPORTEDNoGrant HospitalComcorewell health big rapids hospital on above:Performed By: #### CDP, BMPX, TROPI ####[address] [address] Erythrocytes (RBC) NOT REPORTEDNormalOhiohealth Grant Medical CenterComment on above:Performed By: #### CDP, BMPX, TROPI ####[address] [address] Granulocytes/100 WBC (Bld)NOT REPORTEDNormal0.00-0.30[facility] CenterComcorewell health big rapids hospital on above:Performed By: #### CDP, BMPX, TROPI ####[address] [address] Immature granulocytes #/vol (Bld)NOT OWRXUXULPtnfmm1Xsjyh[address] [place] [address] on above:Performed By: #### CDP, BMPX, TROPI ####[address] [address] PlateletsNOT REPORTEDNormThe Christ HospitalComcorewell health big rapids hospital on above:Performed By: #### CDP, BMPX, TROPI ####[address] [address] WBC Morphology NOT REPORTEDNormalOhiohealth Grant Medical CenterComment on above:Performed By: #### CDP, BMPX, TROPI ####[address] [address] Troponinon 75-26-8484Icwkuvtq I.cardiac mass concNormalOhiohealth Grant Medical CenterComcorewell health big rapids hospital on above:Result Comment: Reference Range: <0.03 Within reference range. 0.03-0.09 Possible myocardial damage.Repeat at appropriate intervals to rule out chronic elevation. >= 0.10 Indicative of myocardial damage.Patients with high levels of Biotin oral intake (i.e >5mg/day) may have falsely decreased Troponin T levels. Samples collected within 8 hours of biotin intake may require additional information for diagnosis.Performed at [address] [address] [phone] By: #### CDP, BMPX, TROPI ####[address] [address] Troponin T.cardiac mass concug/LNormal<0.03[facility] on above:Result Comment: Troponin T results cannot be compared to Troponin-I results.Performed By: #### CDP, BMPX, TROPI ####[address] [address] Troponin I.cardiac mass concNormalOhiohealth Grant Medical Center Comment on above:Result Comment: Reference Range: <0.03 Within reference range. 0.03-0.09 Possible myocardial damage.Repeat at appropriate intervals to rule out chronic elevation. >= 0.10 Indicative of myocardial damage.Patients with high levels of Biotin oral intake (i.e >5mg/day) may have falsely decreased Troponin T levels. Samples collected within 8 hours of biotin intake may require additional information for diagnosis.Performed at [facility] [address] [facility] [place] [address] [phone] By: #### TROPI ####[facility] [place] [address] Troponin T.cardiac mass concug/LNormal<0.03[facility] Grant Medical CenterComment on above:Result Comment: Troponin T results cannot be compared to Troponin-I results.Performed By: #### TROPI ####[facility] [facility] [place] [address] XR CHEST (2 VW)on 06-83-1343RQ CHEST (2 VW)EXAMINATION:TWO VIEWS OF THE CHEST, [...] cardiopulmonary findings.Interpreted by:FABIANA Oliverigned by:Zaire Dominguez MD5/6/18Final resultNormThe Christ Hospital Basic Metab w/rfx MGon 06-28-2017(cont.)NormalOhiohealth Grant Medical CenterComment on above:Result Comment: Average GFR for 70 or more years old: 75 mL/min/1.73sq mChronic Kidney Disease: <60 mL/min/1.73sq mKidney failure: <15 mL/min/1.73sq meGFR calculated using average adult body mass. Additional eGFR calculator available at:http://www.Global Axcess/multiple_crcl_2012.htmPerformedat [address] [address] Performed By: #### CDP, BMPX ####[address] [address] Anion gap13 mmol/LNormal9-17[facility] Medical CenterComment on above:Performed By: #### CDP, BMPX ####[address] [address] Kqbhzxx6.7 mg/dLNormal 8.6-10.4[facility] CenterComment on above:Performed By: #### CDP, BMPX ####[address] [address] Pkjtbgqh124 mmol/RRvpjqo80-218QzbzpOhiohealth Grant Medical CenterComment on above: Performed By: #### CDP, BMPX ####[address] [address] UW593 mmol/LKnxaqf96-71HrzmfOhiohealth Grant Medical CenterComcorewell health big rapids hospital on above:Performed By: #### CDP, BMPX ####[address] [address] Mvdznoapoc9.53 mg/dLNormal 0.50-0.90[facility] Medical CenterComment on above:Performed By: #### CDP, BMPX ####[address] [address] eGFR (non-black)mL/min/{1.73_m2}Normal>60[facility] Medical CenterComment on above:Performed By: #### CDP, BMPX ####[address] [address] Glucose mass rwbu477 mg/eAKkcd66-29QkhfjBucyrus Community HospitalComment on above:Performed By: #### CDP, BMPX ####[address] [address] Potassium molar conc3.7 mmol/LNormal3.7-5.3MProMedica Toledo HospitalComment on above:Performed By: #### CDP, BMPX ####[address] [address] Hrgdar025 mmol/LHxubbd003-761PkwpnWilson HealthComment on above:Performed By: #### CDP, BMPX ####[address] [address] Urea urjbzkez88 mg/dLNormal8-23[facility] CenterComment on above:Performed By: #### CDP, BMPX ####[address] [address] BUN/CRE RatioNOT REPORTEDNormal9-20[facility] CenterComment on above:Performed By: #### CDP, BMPX ####[address] [address] Staging:NOT REPORTEDNormalOhiohealth Grant Medical CenterComment on above:Performed By: #### CDP, BMPX ####[address] [address] Basic Metabolic Profon 06-28-2017(cont.)Normal [facility] CenterComment on above:Result Comment: Average GFR for 70 or more years old: 75 mL/min/1.73sq mChronic Kidney Disease: <60 mL/min/1.73sq mKidney failure: <15 mL/min/1.73sq meGFR calculated using average adult body mas s. Additional eGFR calculator available at:http://www.Global Axcess/multiple_crcl_2012.htmPerformedat [facility] [address] [place] [address] Performed By: #### CDP, BMP, TROPI, TSHX ####[address] [address] Anion gap13 mmol/LNormal9-17[facility] Medical CenterComment on above:Performed By: #### CDP, BMP, TROPI, TSHX ####[address] [place] [address] Ibinbrh8.2 mg/dL Normal8.6-10.4[facility] Grant Medical CenterComment on above:Performed By: #### CDP, BMP, TROPI, TSHX ####[address] [place] [address] Tihzwmlz795 mmol/GRslrzb14-626YekacOhiohealth Grant Medical CenterComment on above:Performed By: #### CDP, BMP, TROPI, TSHX ####[address] [place] [address] DF557 mmol/HZafprt36-17 [facility] CenterComment on above:Performed By: #### CDP, BMP, TROPI, TSHX ####[address] [place] [address] Snsfbirukf2.61 mg/dLNormal0.50-0.90[facility] Comment on above:Performed By: #### CDP, BMP, TROPI, TSHX ####[address] [address] eGFR (non-black) mL/min/{1.73_m2}Normal>60[facility] Medical CenterComment on above:Performed By: #### CDP, BMP, TROPI, TSHX ####[address] [address] Glucose mass jzyh904 mg/sNVykl88-84Bfrzq [facility] CenterComment on above:Performed By: #### CDP, BMP, TROPI, TSHX ####[address] [address] Potassium molar conc4.7 mmol/LNormal3.7-5.3[facility] Medical CenterComment on above:Performed By: #### CDP, BMP, TROPI, TSHX ####[address] [address] Lexaoh927 mmol/LNormal 135-144Mer[facility] Medical CenterComment on above:Performed By: #### CDP, BMP, TROPI, TSHX ####[address] [address] Urea vwxywzze40 mg/dLNormal8-23[facility] Comment on above:Performed By: #### CDP, BMP, TROPI, TSHX ####[address] [address] BUN/CRE RatioNOT REPORTED Normal9-20MerWilson HealthComment on above:Performed By: #### CDP, BMP, TROPI, TSHX ####[address] [place] [address] Staging:NOT REPORTEDNormalMercy Sycamore Medical CenterComment on above:Performed By: #### CDP, BMP, TROPI, TSHX ####[address] [address] CBC with Diffon 06-28-2017 Abs. Basophil0.00 k/uLNormal0.0-0.2[facility] CenterComment on above: Result Comment: Performed at [address] [address] Performed By: #### CDP, BMPX ####[address] [address] Abs.Neutrophil (Seg)5.50 k/uLNormal1.3-9.1[facility] CenterComment on above:Performed By: #### CDP, BMPX ####[address] [address] Basophils/100 WBC Auto (Bld)1 %Normal0-2[facility] CenterComment on above:Performed By: #### CDP, BMPX ####[address] [address] Pdsmqadhahz3.10 10*3/uL Normal0.0-0.4[facility] CenterComment on above:Performed By: #### CDP, BMPX ####[address] [phone]/100 leukocytes2 %Normal0-4[facility] CenterComment on above:Performed By: #### CDP, BMPX ####[address] [address] Erythrocyte distribution width Auto Ratio (RBC) 14.8 %Uepvnx40.5-14.9[facility] CenterComment on above:Performed By: #### CDP, BMPX ####[address] [place] [address] Erythrocytes (RBC)4.47 10*6/uLNormal4.0-5.2[facility] CenterComment on above:Performed By: #### CDP, BMPX ####[address] [address] Hematocrit (HCT)39.8 % Vsnrbq24-46NeywnWilson HealthComment on above:Performed By: #### CDP, BMPX ####[address] [phone] mass conc (Bld)13.3 g/rMVspmdq55.0-16.0MerWilson HealthComment on above:Performed By: #### CDP, BMPX ####[address] [address] Mvoowalyror3.90 10*3/uL Normal1.0-4.8MerWilson HealthComment on above:Performed By: #### CDP, BMPX ####[address] [phone]/100 oeuuvbyxif31 %Kzz34-40OxavmOhiohealth Grant Medical CenterComment on above:Performed By: #### CDP, BMPX ####[address] [address] MVF87.7 hmKbtvlb69-61QibjoWilson Health Comment on above:Performed By: #### CDP, BMPX ####[address] [address] MCHC mass conc (RBC)33.3 g/dLNormal 31-37MerWilson HealthComment on above:Performed By: #### CDP, BMPX ####[address] [address] MCV 89.1 fKCcgnoe11-980AtxczOhiohealth Grant Medical CenterComment on above:Performed By: #### CDP, BMPX ####[address] [address] Tintdqdbs5.50 10*3/uLNormal0.1-1.3MProMedica Toledo Hospital Comment on above:Performed By: #### CDP, BMPX ####[address] [address] Monocytes/100 leukocytes6 %Normal1-7 [facility] CenterComment on above:Performed By: #### CDP, BMPX ####[address] [address] Neutrophil (Seg)68 %Oyhs61-81VllpqOhiohealth Grant Medical CenterComment on above: Performed By: #### CDP, BMPX ####[address] [address] Platelet mean volume (PMV)8.6 fLNormal6.0-12.0 [facility] CenterComment on above:Performed By: #### CDP, BMPX ####[address] [address] Mlcciuyxm581 10*3/xWHjshfy600-965NbvhrOhiohealth Grant Medical CenterComment on above: Performed By: #### CDP, BMPX ####[address] [address] WBC (Leukocytes)8.0 10*3/uLNormal3.5-11.0[facility] Medical CenterComment on above:Performed By: #### CDP, BMPX ####[address] [address] Auto Diff PerformedNOT REPORTEDNormalCleveland Clinic Euclid Hospitalcy [facility]camore Medical CenterComment on above:Performed By: #### CDP, BMPX ####[address] [address] Erythrocyte morphologyNOT REPORTEDNormalOhiohealth Grant Medical CenterComcorewell health big rapids hospital on above:Performed By: #### CDP, BMPX ####[address] [address] Erythrocytes (RBC)NOT REPORTEDNormalMercy Sycamore Medical CenterComment on above:Performed By: #### CDP, BMPX ####[address] [phone]/100 WBC (Bld)NOT REPORTEDNormal0.00-0.30[facility] CenterComment on above:Performed By: #### CDP, BMPX ####[address] [address] Immature granulocytes #/vol (Bld)NOT PCTUZYOBYfnsln2TwrxvOhiohealth Grant Medical CenterComment on above: Performed By: #### CDP, BMPX ####[address] [address] PlateletsNOT REPORTEDNormalOhiohealth Grant Medical CenterComcorewell health big rapids hospital on above:Performed By: #### CDP, BMPX ####[address] [address] WBC MorphologyNOT REPORTED NormalOhiohealth Grant Medical CenterComcorewell health big rapids hospital on above:Performed By: #### CDP, BMPX ####[address] [address] Abs. Basophil0.10 k/uLNormal0.0-0.2[facility] CenterComment on above:Result Comment: Performed at [address] [address] Performed By: #### CDP, BMP, TROPI, TSHX ####[address] [address] Abs.Neutrophil (Seg)4.20 k/uLNormal1.3-9.1[facility] Medical CenterComment on above:Performed By: #### CDP, BMP, TROPI, TSHX ####[address] [address] Basophils/100 WBC Auto (Bld)1 %Normal0-2[facility] CenterComment on above:Performed By: #### CDP, BMP, TROPI, TSHX ####[address] [address] Brakdebcsch8.20 10*3/uLNormal0.0-0.4[facility] Comment on above:Performed By: #### CDP, BMP, TROPI, TSHX ####[address] [address] Eosinophils/100 leukocytes 2 %Normal0-4MerWilson HealthComment on above:Performed By: #### CDP, BMP, TROPI, TSHX ####[address] [address] Erythrocyte distribution width Auto Ratio (RBC)14.7 %Normal 11.5-14.9MerWilson HealthComment on above:Performed By: #### CDP, BMP, TROPI, TSHX ####[address] [address] Erythrocytes (RBC)4.38 10*6/uLNormal4.0-5.2[facility] CenterComment on above:Performed By: #### CDP, BMP, TROPI, TSHX ####[address] [address] Hematocrit (HCT) 38.7 %Qwxyyh83-78JldkyWilson HealthComment on above:Performed By: #### CDP, BMP, TROPI, TSHX ####[address] [address] Hemoglobin mass conc (Bld)12.9 g/qNYdrvxb61.0-16.0MerWilson HealthComment on above:Performed By: #### CDP, BMP, TROPI, TSHX ####[address] [address] Lymphocytes2.60 10*3/uLNormal1.0-4.8MerWilson HealthComment on above: Performed By: #### CDP, BMP, TROPI, TSHX ####[address] [address] Lymphocytes/100 jzvsnydzpc12 %Normal 24-44MerWilson HealthComment on above:Performed By: #### CDP, BMP, TROPI, TSHX ####[address] [address] QTH96.6 xvBrdpmx42-18GtqnpWilson HealthComment on above:Performed By: #### CDP, BMP, TROPI, TSHX ####[address] [address] MCHC mass conc (RBC)33.4 g/sRKuxkrk42-55OmzigWilson HealthComment on above:Performed By: #### CDP, BMP, TROPI, TSHX ####[address] [address] BWW37.4 rIRpcwps43-035EhsxlWilson HealthComment on above:Performed By: #### CDP, BMP, TROPI, TSHX ####[address] [address] Zwazlovlz9.60 10*3/uL Normal0.1-1.3MProMedica Toledo HospitalComment on above:Performed By: #### CDP, BMP, TROPI, TSHX ####[address] [address] Monocytes/100 leukocytes8 %High1-7[facility] Comment on above:Performed By: #### CDP, BMP, TROPI, TSHX ####[address] [address] Neutrophil (Seg)55 %Normal 36-66[facility] CenterComment on above:Performed By: #### CDP, BMP, TROPI, TSHX ####[address] [address] Platelet mean volume (PMV)8.6 fLNoal6.0-12.0[facility] CenterComment on above:Performed By: #### CDP, BMP, TROPI, TSHX ####[address] [address] Znanbiwum020 10*3/rGAjiqny919-173XqyqiWilson HealthComment on above:Performed By: #### CDP, BMP, TROPI, TSHX ####[address] [address] WBC (Leukocytes)7.7 10*3/uLNormal3.5-11.0[facility] CenterComment on above:Performed By: #### CDP, BMP, TROPI, TSHX ####[address] [address] Auto Diff PerformedNOT REPORTEDNormalMercy Sycamore Medical CenterComment on above: Performed By: #### CDP, BMP, TROPI, TSHX ####[address] [address] Erythrocyte morphologyNOT REPORTED NormalOhiohealth Grant Medical CenterComment on above:Performed By: #### CDP, BMP, TROPI, TSHX ####[address] [place] [address] Erythrocytes (RBC)NOT REPORTEDNormalMercy [facility] on above:Performed By: #### CDP, BMP, TROPI, TSHX ####[address] [address] Granulocytes/100 WBC (Bld) NOT REPORTEDNormal0.00-0.30MerWilson HealthComment on above:Performed By: #### CDP, BMP, TROPI, TSHX ####[address] [address] Immature granulocytes #/vol (Bld)NOT REPORTED Hpfngx9GrtgeFirelands Regional Medical Center South Campusment on above:Performed By: #### CDP, BMP, TROPI, TSHX ####[address] [phone] REPORTEDNormalOhiohealth Grant Medical CenterComment on above:Performed By: #### CDP, BMP, TROPI, TSHX ####[address] [address] WBC MorphologyNOT REPORTED NormalMercy Health Allen Hospital on above:Performed By: #### CDP, BMP, TROPI, TSHX ####[address] [phone] 27-82-0329Iaodabep9.7 ug/dLNormal2.7-18.4[facility] HospitalComcorewell health big rap[facility] hospital on above:Result Comment: Cortisol Reference Range: AM 6.0-18.4 PM 2.7-10.5Performed at [address] [address] Performed By: #### CORTI ####[address] [address] #### AALD, AREN ####[address] [place] [address] Collection Info.NOT REPORTEDNoGrant HospitalComcorewell health big rapids hospital on above:Performed By: #### CORTI ####[address] [address] #### AALD, AREN ####[address] [address] Renin Activityon 48-36-9224Rbxvgjy:NOT REPORTEDNoGrant HospitalComcorewell health big rap[facility] hospital on above:Performed By: #### CORTI ####[address] [address] #### AALD, AREN ####[address] [address] TSH w/reflex to FT4on 04-78-8517Vbqaxpp stimulating hormone (TSH)2.65 m[IU]/LNormal 0.30-5.00[facility] CenterComcorewell health big rap[facility] hospital on above:Result Comment: Performed at [address] [address] [phone] By: #### CDP, BMP, TROPI, TSHX ####[address] [place] [address] Troponinon 06-28-2017 Troponin I.cardiac mass concNoGrant HospitalComcorewell health big rapids hospital on above: Result Comment: Reference Range: <0.03 Within reference range. 0.03-0.09 Possible myocardial damage.Repeat at appropriate intervals to rule out chronic elevation. >= 0.10 Indicative of myocardial damage.Patients with high levels of Biotin oral intake (i.e >5mg/day) may have falsely decreased Troponin T levels. Samples collected within 8 hours of biotin intake may require additional inform ation for diagnosis.Performed at [address] [address] [phone] By: #### TROPI ####[address] [address] Troponin T.cardiac mass concug/LNormal<0.03[facility] CenterComment on above:Result Comment: Troponin T results cannot be compared to Troponin-I results.Performed By: #### TROPI ####[address] [address] Troponin I.cardiac mass concNormalMerWilson Health Comment on above:Result Comment: Reference Range: <0.03 Within reference range. 0.03-0.09 Possible myocardial damage.Repeat at appropriate intervals to rule out chronic elevation. >= 0.10 Indicative of myocardial damage.Patients with high levels of Biotin oral intake (i.e >5mg/day) may have falsely decreased Troponin T levels. Samples collected within 8 hours of biotin intake may require additional information for diagnosis.Performed at [address] [address] [phone] By: #### TROPI ####[address] [address] Troponin T.cardiac mass concug/LNormal<0.03[facility] CenterComcorewell health big rapids hospital on above:Result Comment: Troponin T results cannot be compared to Troponin-I results.Performed By: #### TROPI ####[address] [address] Troponin I.cardiac mass concNormalMerWilson HealthComment on above:Result Comment: Reference Range: <0.03 Within reference range. 0.03-0.09 Possible myocardial damage.Repeat at appropriate intervals to rule out chronic elevation. >= 0.10 Indicative of myocardial damage.Patients with high levels of Biotin oral intake (i.e >5mg/day) may have falsely decreased Troponin T levels. Samples collected within 8 hours of biotin intake may require additional information for diagnosis.Performed at [address] [address] [phone] By: #### CDP, BMP, TROPI, TSHX ####[address] [phone] T.cardiac mass concug/LNormal<0.03[facility] CenterComment on above:Result Comment: Troponin T results cannot be compared to Troponin-I results.Performed By: #### CDP, BMP, TROPI, TSHX ####[address] [phone] w/Reflex Cultureon 85-63-2486Tymhtbgvxldke mass conc NegativeNormalNEGOhiohealth Grant Medical CenterComment on above:Performed By: #### UAX ####[address] [address] Bilirubin (direct)NegativeNormalNEGOhiohealth Grant Medical CenterComment on above: Performed By: #### UAX ####[address] [phone] exam not performed based on chemical results unless requested inNormalOhiohealth Grant Medical CenterComcorewell health big rapids hospital on above: Result Comment: original order.Performed at [address] [address] [phone] By: #### UAX ####[address] [address] Hemoglobin mass conc (Bld)NegativeNormalNEGMercy Sycamore Medical CenterComment on above: Performed By: #### UAX ####[address] [phone],UrNegativeNormalNEGMercy Sycamore Medical CenterComment on above:Performed By: #### UAX ####[address] [phone]RMercy Sycamore Medical CenterComment on above:Performed By: #### UAX ####[address] [phone], colorYELLOWNormal YELMercy Sycamore Medical CenterComment on above:Performed By: #### UAX ####[address] [phone], glucose presenceNegativeNormalNEGCleveland Clinic Euclid Hospitalcy [facility]cam[facility] Medical CenterComment on above:Performed By: #### UAX ####[address] [phone], leukocyte esterase presenceNegativeNormalNEGOhiohealth Grant Medical CenterComment on above:Performed By: #### UAX ####[address] [phone], pH5.5 [pH]Normal 5.0-8.0MerWilson HealthComcorewell health big rapids hospital on above:Performed By: #### UAX ####[address] [address] Urine, protein presenceNegativeNormalNEGOhiohealth Grant Medical CenterComment on above:Performed By: #### UAX ####[address] [address] Urine, specific gravity1.667Ljkkav3.000-1.030 [facility] CenterComment on above:Performed By: #### UAX ####[facility] [facility] [place] [address] Urobilinogen,Ur NormalNormalNORMMercy Sycamore Medical CenterComment on above:Performed By: #### UAX ####[facility] [facility] [place] [address] Vital Signs Date TimeVital SignValuePerforming GaostrwqqXiuqytqz87-22-1612 10:25-0500Body .56 cmMD Velasquez Betfairy Work Phone: [phone] [place], [place] 4891702-13-2024 10:25-0500 Body mass index (BMI) [Ratio]26.7 kg/m2MD Velasquez Betfairy Work Phone: [phone] [place], [place] 4891702-13-2024 10:25-0500 Body wydrwp93.76 kgMD Velasquez Betfairy Work Phone: [phone]08-22-2020 15:45-0400 BP Yjoglrffc14 mm[Hg][facility], [id number] 15:45-0400BP Gjkqmimg709 mm[Hg][facility], [id number] 08:25-0400Body Rgktmezvlmn41.01 [degF][facility], [id number] 08:25-0400 Pulse (Heart Rate)70 /minCoDayton Children's Hospital, [id number] 08:25-0400 Pulse Qmqvltwl18 %[facility], [id number] 08:25-0400 Respiratory Rate20 /minCoDayton Children's Hospital, [id number] 06:15-0400BMI (Body Mass Index)25.51 kg/g0OtotfxenNovant Health Hunters[facility], [id number] 06:15-0400Body kmewae38.4 kgCoemerald [facility], [id number] 15:22-8286Lztorx666.6 cmCourtronald [facility], [id number] 16:07-0400 Respiratory rateNOT REPORTEDRANKettering Health Main Campus Comment on above:Performed By: #### CDP, CP, LIP, TROPI, LIPRF, GLYHGB #### [facility] [address] [place] [address] Die Caster: Brandon Anaya MD08-19-2020 14:24-0400Respiratory rateNOT REPORTEDCoDayton Children's Hospital, [place] Encounters Encounter DateEncounter TypeCare ProviderFacilityStart: 12-22-2024 End: 93-33-2423xilpflkappXFCVXCommunity Memorial Hospitaltart: 16-87-8472Xofpfwmufr and management of inpatientMUNIER NAZZSUBURBAN [facility] HOSPITALniversity [facility] Hospitaltart: 08-26-2024 End: 62-11-8475Kakqoabyxx and management of inpatientMUNIER NAZZSUBURBAN COMMUNITY [facility] & [facility]ENT[facility]OSPITALniSt. John of God Hospitaltart: 08-17-2024 End: 47-58-7267kdnvehjtpmGlmtyaf M HoyFacility:[facility] Start: 08-04-2024 End: 27-14-0611twnsofdtxdQTGFBY NAZZSouthview Medical Centertart: 07-22-2024 End: 52-36-1013uinlnmawjkJDFBCPTFort Hamilton Hospital Start: 16-17-9637gjxejdztwtVILBUCommunity Memorial Hospitaltart: 92-60-2471ctqpddabilLCMQGREMansfield Hospitaltart: 06-06-2024 End: 01-22-8906bzfhamjpgtRPNSZW NAZZSouthview Medical Centertart: 06-06-2024 End: 00-98-6071pbpkbrquioHNXPRA NAZZSouthview Medical Centertart: 05-31-2024 End: 99-61-6606uyzfclevllKYRBGEJ [facility] Start: 05-20-2024 End: 86-21-9782wocuhrlzksSHHIZ A PETITTINot AvailableStart: 05-20-2024 End: 34-39-6159Cazoib outpatient visit 25 minutesEmminerva Red MD Work Phone: noms [facility] DERMComment on above:Other atopic dermatitis (Primary Dx); High risk medication useStart: 05-20-2024 End: 80-86-6478Cmqktzcandi Red MD Work Phone: noMS SWS DERMStart: 05-20-2024 End: 77-00-4640Wrxvfd flowsWilfredo Red MD Work Phone: noms [facility] DERMStart: 86-30-0469iievclzsszJMSQUC Medical Centertart: 05-11-2024 End: 85-48-7469czmtrfqcyqPZGRF AKRACleveland Clinic South Pointe Hospitaltart: 36-25-4079egtsgspkqaJEOEAFV [facility]tart: 03-26-2024 End: 38-16-1407cqxjcrlwedYCDJW KHUniversity Hospitals Lake West Medical Centertart: 03-09-2024 End: 61-75-2013iesbvxncsrERWV [facility]ertart: 74-65-1294bmtzyvmsbkSRQD REBECCAMemorial Health System Selby General Hospitaltart: 21-06-4186Fxgrchegee and management of inpatientOMAR [facility]tart: 28-39-1695Vsreuszjnk and management of inpatientSHOBHA [facility]tart: 33-19-3594Rszozzqrfc and management of inpatientSHOBHA [facility]tart: 34-27-8912Spyhudvcod and management of inpatientKIMBERLY [facility]tart: 43-18-3765Dyavonyish and management of inpatientZAID NOTrumbull Regional Medical Centertart: 10-47-7602Fejlizdohe and management of inpatientTHOMAS D OWEISUFulton County Health Centertart: 78-18-1486Xuzyzhqclg and management of inpatientZAID NOTrumbull Regional Medical Centertart: 99-10-5054Upydwawwqe and management of inpatientZAID GEMAPremier Health Miami Valley Hospital Northtart: 62-47-3272Ubtjfultzk and management of inpatientWHITNEY BEACHOhioHealth Nelsonville Health Centertart: 02-02-2024 Evaluation and management of inpatientNASIR ALIWood County Hospitaltart: 36-88-2774Hgsbahnczg and management of inpatientOMAR [facility]art: 02-02-2024 End: 40-07-6175Dthhlyckwg and management of inpatientOMAR [facility] Hospitaltart: 02-01-2024 End: 73-78-1545svmjngornzKSBNZD AYAHZZALUniSt. John of God Hospitaltart: 67-00-0443Wpunppbqvf and management of inpatientJAMIE VENKATESHERWood County Hospitaltart: 73-70-3084Ytzuasceml and management of inpatient RYNE NIGELLEYWood County Hospitaltart: 69-25-5986Dekjxmnuq department patient visitClinton [facility] Start: 66-77-1437Jhvsdxygl department patient visitMercy Health Allen Hospitaltart: 01-27-2024 End: 21-27-5412Djsqfyfwmq and management of inpatientOMAR [facility] Hospitaltart: 40-82-2538almskpwqpcRKQSDZC PERMercy Health Clermont Hospitaltart: 01-16-2024 End: 39-15-0718Omqroecandi HARRIS Work Phone: NOMS SWS DERMStart: 01-16-2024 End: 58-02-8647Wroufhcandi HARRIS Work Phone: noms SWS DERMStart: 01-16-2024 End: 71-98-1843Avvevx outpatient visit 25 minutesRyernesto Ta PA Work Phone: noms [facility] DERMComment on above:Other atopic dermatitis (Primary Dx)Start: 01-16-2024 End: 12-40-9489ykdqzhguwlSQPYL NORTHEIMNot AvailableStart: 12-31-2023 End: 24-14-0777bblvbwwjjdUSMWMCommunity Memorial Hospitaltart: 04-17-2023 End: 15-79-7418hxsxgqndmjLB Velasquez M Hoy Work Phone: [facility] Work Phone: Start: 04-17-2023 End: 37-91-1340Fntliwe encounter procedureMD Velasquez Hoy Work Phone: [phone] [place] [address] Fdw-Jnv-Qocvhstp Testing Work Phone: Start: 04-08-2023 End: 37-99-7636vzkpskphuyDS Velasquez M Hoy Work Phone: [facility] Work Phone: Start: 04-08-2023 End: 29-83-0384Nmxqsmh encounter procedureMD Velasquez Hoy Work Phone: [phone] [place] [address] [facility] Work Phone: Start: 04-08-2023 End: 14-60-6364odnsharhpaAG Velasquez M Hoy Work Phone: [facility] Work Phone: Start: 04-08-2023 End: 80-31-0325Hiczhnf encounter procedureMD Velasquez Hoy Work Phone: [facility] Start: 92-11-3503lvuruzxowaBF VELASQUEZ HOY .Facility:M3Gxzkc: 05-29-2022 End: 97-83-4660svtacnxtjuGN VELASQUEZ HOY .Facility:O2Qpkgy: 03-07-2022 End: 06-81-3189uyunaihaaoKE VELASQUEZ HOY .Facility:N1Mlnjm: 02-06-2022 End: 94-12-4813thxzmktluuFO DOUGLAS HOY .Facility:B7Nughp: 05-35-5029qaeowytwyp DR VELASQUEZ BUNCH .Facility:O1Dbfik: 10-09-2019 End: 87-50-7226Znspksbncq and management of inpatientRANVIR S RATHOREMercy Inter-Community Medical Centertart: 10-09-2019 End: 96-96-5478Knrxmkycbq and management of inpatientCoemerald Mercado Work Phone: stvz CAR 2Comment on above:Abdominal aortic aneurysm (AAA) without rupture (HCC) (Primary Dx); Acute low back pain, unspecified back pain laterality, unspecified whether sciatica present; Vertigo; Nausea and vomiting, intractability of vomiting not specified, unspecified vomiting type; Hypertensive urgencyStart: 06-27-2017 End: 61-39-4291Eectvojgnd and management of inpatientDOUGLAS James FONTAINEYMlizet [facility] Procedures DateProcedureProcedure DetailPerforming ClinicianStart: 39-14-5409Uppxgj-up visitOMAR HORANIStart: 53-58-9795Jsznmw-up visitOMAR HORANIStart: 03-26-2024 Follow-up visitOMAR HORANIStart: 03-31-2480Enexzj-up visitOMAR HORANIStart: 50-71-3331Zhnawe-up visitOMAR HORANIStart: 15-16-7225Gnjfse-up visitOMAR HORANI Start: 64-31-9029Bkqgj X-ray of right handMD Velasquez Bunch Work Phone: Start: 07-40-3099Cuhmi count complete auto&auto difrntl wbcRANVIR RATHOREStart: 53-28-2642Exrvlsdxbfzir metabolic panelRANVIR RATHOREStart: 56-64-3028Mcnynqz bacterial quanttative colony count urineRANVIR RATHOREStart: 86-94-7595Sapyw dip stick/tablet reagent auto microscopyRANVIR RATHOREStart: 07-19-9294Zylujnv blood reagent stripRANVIR RATHOREStart: 33-18-2343NKZKGFDGL PATIENTRANVIR RATHOREStart: 53-63-4952Gremv dip stick/tablet reagent auto microscopyJojonathan Bazan Work Phone: Start: 06-17-9488RI CONSULT TO HOME CARE NEEDSRANVIR RATHOREStart: 23-54-6357Fkdrmkz blood reagent stripRanvir S Judie Work Phone: Start: 01-55-7167YQQWDOC SCANRANVIR RATHOREStart: 12-22-6153LC CONSULT TO UROLOGYRANVIR RATHOREStart: 50-61-3535Bhlc bld gluc mntr dev cleared fda spec home useRANVIR RATHOREStart: 26-95-3901Hjczauh blood reagent stripRANVIR RATHOREStart: 79-77-0437RDVGMUSI OXYGEN THERAPY PROTOCOL GIOVANNA RATHOREStart: 10-16-2019 End: 26-98-8255Nwscmsq blood reagent stripRanvir S Judie Work Phone: Start: 91-08-7351Gvcah count complete auto&auto difrntl wbcRANVIR RATHOREStart: 01-77-3801Xgzovgirvxink metabolic panelRANVIR RATHOREStart: 54-45-8314Gzwc bld gluc mntr dev cleared fda spec home useRANVIR RATHOREStart: 92-73-9591YMWRW METABOLIC PANEL W/ REFLEX TO MG FOR LOW K Muralikrishna Porandla Work Phone: Start: 57-51-5704Pbrqa count complete auto&auto difrntl wbcMuralikrishna Porandla Work Phone: Start: 01-72-8190QWXOBB AND OUTPUTRANVIR RATHOREStart: 45-10-4035Wgkk bld gluc mntr dev cleared fda spec home useRANVIR RATHOREStart: 99-02-8828Qfcjxva blood reagent stripRANVIR RATHOREStart: 57-37-8833Skjn bld gluc mntr dev cleared fda spec home useRANVIR RATHOREStart: 53-24-4874Yofgwin blood reagent stripRanvir S Judie Work Phone: Start: 97-05-7086Cyzadkf blood reagent stripRANVIR RATHOREStart: 21-80-1618KBXQUGPO CATHRANVIR RATHOREStart: 46-62-3511IZSKSAS NUTRITION SUPPLEMENTSRANVIR RATHOREStart: 36-37-0187Zck spinal canal lumbar w/o & w/contr matrlRANVIR RATHOREStart: 35-40-6178Qdlmbpu blood reagent stripRanvir S Judie Work Phone: Start: 48-23-1542Uyq spinal canal lumbar w/o & w/contr matrlMuralikrishna Porandla Work Phone: Start: 98-66-0218Olibbpl blood reagent stripRANVIR RATHOREStart: 97-25-6239Sffkbnr blood reagent stripRanvir S Judie Work Phone: Start: 07-36-8387Ggzai count complete auto&auto difrntl wbcRANVIR RATHOREStart: 73-71-2093Otrjzarbtqhrs metabolic panelRANVIR RATHOREStart: 25-35-2112Vwtu bld gluc mntr dev cleared fda spec home useRANVIR RATHOREStart: 95-83-2443BUIOTPMV CATHRANVIR RATHOREStart: 80-56-9292XKNCU METABOLIC PANEL W/ REFLEX TO MG FOR LOW KMuralikrishna Porandla Work Phone: Start: 43-24-3091Vtihf count complete auto&auto difrntl wbcMuralikrishna Porandla Work Phone: Start: 16-53-0206HB CONSULT TO IV TEAMRANVIR JUDIE Start: 41-81-7314VUDOOWSS OXYGEN THERAPY PROTOCOLRANVIR RATHOREStart: 10-15-2019 Glucose blood reagent stripRANVIR RATHOREStart: 14-38-7476Ireyucp blood reagent stripRanvir S Judie Work Phone: Start: 24-93-0841Dmbf bld gluc mntr dev cleared fda spec home useRANVIR RATHOREStart: 83-85-6641DPGEUC AND OUTPUTRANVIR JUDIE Start: 24-59-7849Egmk bld gluc mntr dev cleared fda spec home useRANVIR JUDIE Start: 51-41-4484Pdbgwhs blood reagent stripRANVIR RATHOREStart: 24-02-4489Stpl bld gluc mntr dev cleared fda spec home useRANVIR RATHOREStart: 10-14-2019 Glucose blood reagent stripRanvir S Judie Work Phone: Start: 72-25-5148YNZZTYBL CATHRANVIR RATHOREStart: 98-84-7633Brhzsdi blood reagent stripRanvir S Judie Work Phone: Start: 77-69-4048Qtvynjq blood reagent stripRANVIR RATHOREStart: 20-54-7547Dsnyezi blood reagent stripRanvir S Judie Work Phone: Start: 09-60-5482Swdk bld gluc mntr dev cleared fda spec home useRANVIR RATHOREStart: 83-32-5277WINRLIEO OXYGEN THERAPY PROTOCOL GIOVANNA RATHOREStart: 27-06-9900TDDAUFXF CATHRANVIR RATHOREStart: 10-14-2019 Antibody treponema pallidumRANVIR RATHOREStart: 31-47-3338Qriwt count complete auto&auto difrntl wbcRANVIR RATHOREStart: 75-97-4770Vqwuwimsexxrw metabolic panelRANVIR RATHOREStart: 30-20-0023Xpftxvs blood reagent stripRANVIR JUDIE Start: 76-01-8831Jrby bld gluc mntr dev cleared fda spec home useRANVIR JUDIE Start: 95-16-2125YBENU METABOLIC PANEL W/ REFLEX TO MG FOR LOW KMuralikrishna Porandla Work Phone: Start: 97-71-4857Csvbw count complete auto&auto difrntl wbcMuralikrishna Porandla Work Phone: Start: 10-14-2019T. PALLIDUM ABMuralikrishna Porandla Work Phone: Start: 98-89-7164Wkaiotm blood reagent stripRanvir S Judie Work Phone: Start: 80-85-6979QVIIZN AND OUTPUTRANVIR RATHOREStart: 19-46-8948Giih bld gluc mntr dev cleared fda spec home useRANVIR RATHOREStart: 76-86-0888WSZDDZDZ CATHRANVIR RATHOREStart: 67-18-1465Ofdezne blood reagent stripRANVIR RATHOREStart: 19-75-4706Timv bld gluc mntr dev cleared fda spec home useRANVIR RATHOREStart: 28-91-0120Fqgybsy blood reagent stripRanvir S Judie Work Phone: Start: 02-77-5543Urnxjqq blood reagent stripRANVIR RATHOREStart: 62-02-7293Tluromf blood reagent stripRanvir S Judie Work Phone: Start: 54-36-9291Zfufr of ammoniaRANVIR RATHOREStart: 14-27-1761Jjuxc gases any combination ph pco2 po2 co2 pkp2NNPVTZ RATHOREStart: 61-44-3621QT CONSULT TO IV TEAMRANVIR RATHOREStart: 16-69-8331Ozjrrecj mycoplsm GIOVANNA RATHOREStart: 16-75-7671Mwnaksz blood reagent stripRanvir S Judie Work Phone: Start: 58-66-2168Yrhri of ammoniaDharmakaruna Edara Work Phone: Start: 12-58-7607Vbezb gases any combination ph pco2 po2 co2 dgo3Doydwrledved Edara Work Phone: Start: 72-70-2051Mnmjslie mycoplsmLuis E Kendrick Work Phone: Start: 93-79-4093Kcen bld gluc mntr dev cleared fda spec home useRANVIR RATHOREStart: 77-40-3559GVAQQGCA OXYGEN THERAPY PROTOCOL GIOVANNA RATHOREStart: 42-74-4689Bwcwqws blood reagent stripRANVIR RATHOREStart: 20-85-5845Utrfa of magnesiumRANVIR RATHOREStart: 30-51-3533Jaedg count complete auto&auto difrntl wbcRANVIR RATHOREStart: 14-13-4870Mauuhtogigrhu metabolic panelRANVIR RATHOREStart: 72-24-7893Euwgtrn blood reagent stripRanvir S Judie Work Phone: Start: 60-35-8605Sveb bld gluc mntr dev cleared fda spec home useRANVIR RATHOREStart: 79-87-4413Gzppd of magnesiumMuralikrishna Porandla Work Phone: Start: 86-84-4611SZXUC METABOLIC PANEL W/ REFLEX TO MG FOR LOW KMuralikrishna Porandla Work Phone: Start: 27-08-1674Qiezk count complete auto&auto difrntl wbcMuralikrishna Porandla Work Phone: Start: 29-17-1459ATXDTR AND OUTPUTRANVIR RATHOREStart: 87-76-3329Lchk bld gluc mntr dev cleared fda spec home useRANVIR RATHOREStart: 77-90-0234Svcyw dip stick/tablet reagent auto microscopyRANVIR RATHOREStart: 55-98-6822Grrhppf blood reagent stripRANVIR RATHOREStart: 54-34-6231Slxg bld gluc mntr dev cleared fda spec home useRANVIR RATHOREStart: 39-65-3152Gyqmv dip stick/tablet reagent auto microscopyMuralikrishna Porandla Work Phone: Start: 55-44-6374Xlcyvjz blood reagent stripRanvir S Judie Work Phone: Start: 17-59-0291Jkghiqg blood reagent stripRANVIR RATHOREStart: 11-48-3042HADB GENERALRANVIR RATHOREStart: 48-71-7214Lpqezaw blood reagent stripRanvir S Judie Work Phone: Start: 41-58-9219VQFIOUQ, BLOOD 1RANVIR RATHOREStart: 66-66-0648Vjbqgga blood reagent stripRANVIR RATHOREStart: 35-55-7038Oawlmqx blood reagent stripRanvir S Jduie Work Phone: Start: 28-52-7891Noj-scan artl braydon abdl/pel/scrot&/rpr orgn comRANVIR RATHOREStart: 12-68-8235Ipcn bld gluc mntr dev cleared fda spec home useRANVIR RATHOREStart: 71-36-5061Qelzfwn blood reagent stripRANVIR JUDIE Start: 02-87-6796VNPCZFGJ OXYGEN THERAPY PROTOCOLRANVIR RATHOREStart: 10-12-2019 Dup-scan artl braydon abdl/pel/scrot&/rpr orgn comMuralikrishna Porandla Work Phone: Start: 62-15-1957Txihv of aldosteroneRANVIR JUDIE Start: 02-46-5757Zruhp of magnesiumRANVIR RATHOREStart: 38-38-4849Bpaxy of renin GIOVANNA RATHOREStart: 62-72-4849Jlfqc count complete auto&auto difrntl wbcRANVIR RATHOREStart: 17-31-7768Dbyvciwudtifb metabolic panelRANVIR RATHOREStart: 88-38-2681Xnyzelj blood reagent stripRanvir S Judie Work Phone: Start: 36-80-5349Btwae of aldosteroneMuralikrishna Porandla Work Phone: Start: 02-43-4288Ngxey of magnesiumMuralikrishna Porandla Work Phone: Start: 70-48-9037Svjwt of reninMuralikrishna Porandla Work Phone: Start: 27-79-0461EUYYL METABOLIC PANEL W/ REFLEX TO MG FOR LOW KMuralikrishna Porandla Work Phone: Start: 58-44-7108Rqgpl count complete auto&auto difrntl wbcMuralikrishna Porandla Work Phone: Start: 70-26-4966Fest bld gluc mntr dev cleared fda spec home useRANVIR RATHOREStart: 17-89-3968FIVUJF AND OUTPUTRANVIR JUDIE Start: 22-83-6685Hljj bld gluc mntr dev cleared fda spec home useRANVIR JUDIE Start: 98-26-9268Kkucgotkcf exam chest single viewRANVIR RATHOREStart: 36-35-0492TC CONSULT TO INFECTIOUS DISEASESRANVIR RATHOREStart: 06-24-7873Vcoub source albumin quantitative each specimenRANVIR RATHOREStart: 10-11-2019 Radiologic exam chest single viewJovany Quezada Work Phone: Start: 64-82-3836Apjacon blood reagent stripRANVIR RATHOREStart: 48-69-1277Thxq bld gluc mntr dev cleared fda spec home useRANVIR RATHOREStart: 73-67-1222NxaihumrabzpoFXDWEK RATHOREStart: 99-74-1595Xqiegzl blood reagent stripRanvir S Judie Work Phone: Start: 33-06-7737Bfumwjn blood reagent stripRanvir S Judie Work Phone: Start: 62-21-7208XtpezgfvstxfpCaefufmspnnvm Arturo Work Phone: Start: 40-80-9408Dfo brain brain stem w/o w/contrast materialRANVIR RATHOREStart: 74-32-1671Wccgvjv blood reagent stripRANVIR JUDIE Start: 20-85-3166Fvs brain brain stem w/o w/contrast materialViry Davalosman Work Phone: Start: 23-52-0854Dfjjabj blood reagent stripRanvir S Judie Work Phone: Start: 21-56-7993Zshf bld gluc mntr dev cleared fda spec home useRANVIR RATHOREStart: 51-92-7168Wnamuzp blood reagent stripRANVIR RATHOREStart: 31-16-0191CILCUKKI OXYGEN THERAPY PROTOCOLRANVIR RATHOREStart: 80-81-5440Hevhgfr blood reagent stripRanvir S Judie Work Phone: Start: 53-17-3494Trbdx count complete auto&auto difrntl wbcRANVIR RATHOREStart: 41-38-8809Zuzgjhirgfbqc metabolic panelRANVIR RATHOREStart: 93-78-5948Wytc bld gluc mntr dev cleared fda spec home useRANVIR RATHOREStart: 48-69-7598UZCEF METABOLIC PANEL W/ REFLEX TO MG FOR LOW K Murjostin Morris Work Phone: Start: 71-59-9993Egvho count complete auto&auto difrntl wbcMuraltoirisperry Morris Work Phone: Start: 00-97-3420UVHKSP AND OUTPUTRANVIR RATHOREStart: 21-65-8611Pdgsvrx blood reagent stripRANVIR RATHOREStart: 34-23-8752Oywl bld gluc mntr dev cleared fda spec home useRANVIR RATHOREStart: 36-69-3609Ygexjqc blood reagent stripRanvir S Judie Work Phone: Start: 39-31-3896Gmzvm sacrum & coccyx minimum 2 views GIOVANNA RATHOREStart: 46-57-4353Pftmx spine lumbosacral 2/3 viewsRANVIR JUDIE Start: 07-23-2207Pnmptyr blood reagent stripRANVIR RATHOREStart: 91-26-0040Wzie bld gluc mntr dev cleared fda spec home useRANVIR RATHOREStart: 85-55-0242Eyyit sacrum & coccyx minimum 2 viewsDharmakardonn Mares Work Phone: Start: 87-90-6208Jfqck spine lumbosacral 2/3 views Matt Mares Work Phone: Start: 53-22-3962Mvvaexa blood reagent stripRanvir S Judie Work Phone: Start: 01-20-1752Fvmfk of lactateRANVIR RATHOREStart: 81-99-1601F-reactive proteinRANVIR RATHOREStart: 71-81-4102Fxdfakmasoera (pct) GIOVANNA RATHOREStart: 23-07-6644Zbvwwpctpjtuh rate rbc automatedRANVIR JUDIE Start: 98-42-3140Pf head/brain w/o contrast materialRANVIR RATHOREStart: 53-38-8253Ts angiography head w/contrast/noncontrastRANVIR RATHOREStart: 37-30-0891Hkkmh of lactateLuis Manish Erazo Work Phone: Start: 02-12-9060N-reactive proteinLuis Manish Erazo Work Phone: Start: 01-41-0945Afcnuklxvxseg (pct)Alfonso Erazo Work Phone: Start: 00-52-1565Qopgwldtietuk rate rbc automatedLuis Manish Erazo Work Phone: Start: 41-00-0240Wm head/brain w/o contrast material Jimmy Chirri Work Phone: Start: 65-03-8310Ff angiography neck w/contrast/noncontrastLuis Manish Erazo Work Phone: Start: 26-22-7460Vjzghsx blood reagent stripRANVIR RATHOREStart: 33-25-8538UR CONSULT TO NEUROLOGYRANVIR RATHOREStart: 10-10-2019 Glucose blood reagent stripRanvir S Judie Work Phone: Start: 92-97-0114VPFUXZSIGVFPH NURSING CARE ORDER (SPECIFY)GIOVANNA RATHOREStart: 82-44-4822Lfxv bld gluc mntr dev cleared fda spec home useRANVIR RATHOREStart: 35-07-5250OBCFIWRB OXYGEN THERAPY PROTOCOLRANVIR RATHOREStart: 76-29-2133Cgdfy of magnesiumRANVIR RATHOREStart: 50-83-6837Asosp of thyroid stimulating hormone tshRANVIR RATHOREStart: 28-57-0408Jhewx count complete auto&auto difrntl wbcRANVIR RATHOREStart: 05-58-1155Pttxttjtpdvwe metabolic panelRANVIR RATHOREStart: 52-85-7849Zdbbc of magnesiumMuralikrishna Porandla Work Phone: Start: 68-60-9749Diaqz of thyroid stimulating hormone tshMuralikrishna Porandla Work Phone: Start: 25-27-9491JJZXB METABOLIC PANEL W/ REFLEX TO MG FOR LOW KMuralikrishna Porandla Work Phone: Start: 55-22-2862Dksji count complete auto&auto difrntl wbcMuralikrishna Porandla Work Phone: Start: 40-17-2244Odix bld gluc mntr dev cleared fda spec home useRANVIR RATHOREStart: 12-58-4678JKVLU WEIGHTSRANVIR RATHOREStart: 58-97-2752RBXNDJ AND OUTPUTRANVIR RATHOREStart: 12-33-1645Prqz bld gluc mntr dev cleared fda spec home useRANVIR RATHOREStart: 26-96-4003Zivuwhugpz exam abdomen 1 viewRANVIR RATHOREStart: 35-71-5358Hnlt bld gluc mntr dev cleared fda spec home useRANVIR RATHOREStart: 37-06-4206Ssqxxab blood reagent stripRANVIR JUDIE Start: 86-37-1569Bgvxgebapy exam abdomen 1 Ruel Morris Work Phone: Start: 67-68-4579Tehhdyw blood reagent stripRanvir S Judie Work Phone: Start: 72-76-6423ERNSK SIGNSRANVIR RATHOREStart: 30-63-5825Fy abdominal real time w/image limitedRANVIR RATHOREStart: 10-09-2019 MISCELLANEOUS NURSING CARE ORDER (SPECIFY)GIOVANNA RATHOREStart: 40-04-5991Cjyn bld gluc mntr dev cleared fda spec home useRANVIR RATHOREStart: 12-00-4742Pi abdominal real time w/image limitedMatt Mares Work Phone: Start: 70-11-4368RPMNYZH HEELS OFF OF BEDRANVIR RATHOREStart: 87-82-1026ECEL OF BED 60 DEGREES OR LESSRANVIR RATHOREStart: 55-27-2328XBYNLFX COMMUNICATIONRANVIR RATHOREStart: 68-09-7709RRTN PATIENTRANVIR RATHOREStart: 01-26-7731KQMJQS AND OUTPUTRANVIR RATHOREStart: 03-08-8740CQ EVAL AND TREATRANVIR RATHOREStart: 36-83-7151WX EVAL AND TREATRANVIR RATHOREStart: 61-13-4993BXUM CODERANVIR RATHOREStart: 52-43-1057UOEHVYJN OXYGEN THERAPY PROTOCOLRANVIR RATHOREStart: 49-27-0556EBSZYZ PHYSICIAN (SPECIFY)GIOVANNA JUDIE Start: 71-50-1533XNBKVV FOR NO MECHANICAL VTE PROPHYLAXISRANVIR RATHOREStart: 78-44-7285VTEQQ SIGNSRANVIR RATHOREStart: 12-02-4400Ppiay dip stick/tablet reagent auto microscopyRANVIR RATHOREStart: 75-78-5157Kmlkc dip stick/tablet rgnt auto w/o microscopyRANVIR RATHOREStart: 92-39-2617Sqkwd dip stick/tablet reagent auto microscopyMuralikrishna Porandla Work Phone: Start: 39-06-5689Udfky dip stick/tablet rgnt auto w/o microscopyMuralikrishna Porandla Work Phone: Start: 94-84-0202XYAKJCE STATUS (FROM ED OR OR/PROCEDURAL)GIOVANNA RATHOREStart: 51-48-6242ZP CONSULT TO INTERNAL MEDICINE GIOVANNA RATHOREStart: 82-97-3627Ub thorax w/contrast materialRANVIR RATHOREStart: 92-30-0313Dhshf of troponin quantitativeRANVIR RATHOREStart: 85-21-3384Xcgymw bodies serum quantitativeRANVIR RATHOREStart: 30-44-4516XCSOK-19RANVIR JUDIE Start: 68-84-7789Jxm routine ecg w/least 12 lds w/i&rRANVIR RATHOREStart: 46-60-4340ITK REPORTRANVIR RATHOREStart: 38-07-5917Vyolc of lipaseRANVIR JUDIE Start: 86-78-4832Bqpdj count complete auto&auto difrntl wbcRANVIR RATHOREStart: 75-21-1323Uekxbazpjvfxz metabolic panelRANVIR RATHOREStart: 45-52-0597Ficwqxclhz glycosylated a4pHMUGUX RATHOREStart: 00-27-9118Dgswy panelRANVIR RATHOREStart: 97-39-5524Io thorax w/contrast materialTgio Melton Work Phone: Start: 97-53-1856Glxls of troponin quantitativeJoel Melton Work Phone: Start: 93-62-5309Bzrkco bodies serum quantitative Joelthalia Melton Work Phone: Start: 90-67-5408KE CONSULT TO VASCULAR SURGERYRANVIR RATHOREStart: 67-91-3782XKXXU-19Julie Ramesh Work Phone: Start: 81-55-8580Fhb routine ecg w/least 12 lds trcg only w/o i&rTgio Lux [employer] Work Phone: Start: 14-18-7358JFL REPORTHpf ScanningStart: 55-66-5769Znkum of lipaseTgio Lux [employer] Work Phone: Start: 44-58-9265Ktgbl of troponin quantitativeTgio Lux [employer] Work Phone: Start: 79-19-1164Eopce count complete auto&auto difrntl wbcTgio Lux [employer] Work Phone: Start: 13-01-7072Ndvtksvgxdtde metabolic panelTgio Lux [employer] Work Phone: Start: 01-94-2363Snqihkyseb glycosylated r6pTtwbcs J [employer] Work Phone: Start: 50-07-3961Xqxts panelTgio Lux [employer] Phone: Start: 16-24-4397NZTEWKJZP PATIENTDOUGLAS HOYStart: 36-36-2180ZLKOXRXQ OXYGEN THERAPY PROTOCOLDOUGLAS HOYStart: 39-21-5895CIFBQ METABOLIC PANEL W/ REFLEX TO MG FOR LOW KDOUGLAS HOYStart: 23-55-5061HRN WITH AUTO DIFFERENTIALDOUGLAS HOYStart: 12-32-0862MGDSYWKYWBXVWZT HOYStart: 96-14-5719SEAUSRHBONMNPGZ HOYStart: 67-22-3464BAOBP WEIGHTSDOUGLAS HOYStart: 08-57-2856GCTDWC AND OUTPUTDOUGLAS HOYStart: 77-63-4126FEARDHBBNOBXXKPLYI HOY Start: 61-33-3145DXBDXCSO TOTALDOUGLAS HOYStart: 77-39-7811YPTCXDNPJBYG HOY Start: 51-30-5917ZGYVAOTYMGPHUEW HOYStart: 96-09-7352OXAWRSBLYMTXV URINEDOUGLAS HOYStart: 57-29-9919SLFIWOUS PATIENTDOUGLAS HOYStart: 25-28-5335LGTGW METABOLIC PANEL W/ REFLEX TO MG FOR LOW KDOUGLAS HOYStart: 14-75-7799EJN WITH AUTO DIFFERENTIALDOUGLAS HOYStart: 10-83-9475Fepj tthrc r-t 2d w/wom-mode compl spec&colr dDOUGLAS HOYStart: 54-13-2148FJRY CODEDOUGLAS HOYStart: 06-28-2017 INITIATE OXYGEN THERAPY PROTOCOLDOUGLAS HOYStart: 78-74-5418TUUNOM AND OUTPUT VELASQUEZ HOYStart: 49-78-3134BK CONSULT TO SOCIAL WORKDOUGLAS HOYStart: 61-26-2962PH EVAL AND TREATDOUGLAS HOYStart: 63-19-6606CD EVAL AND TREATDOUGLAS HOYStart: 65-57-3253ALJCYT FOR NO MECHANICAL VTE PROPHYLAXISDOUGLAS HOYStart: 51-82-2172MEISUCL CESSATION EDUCATIONDOUGLAS HOYStart: 17-52-3316JNWPF SIGNS VELASQUEZ HOYStart: 79-34-6883ZADU CARDIACDOUGLAS HOYStart: 80-08-0409ZINPLX PHYSICIAN (SPECIFY)VELASQUEZ HOYStart: 05-33-5203BHPZL INTERMITTENT PNEUMATIC COMPRESSION DEVICEDOUGLAS HOYStart: 07-31-7847LQEBBL FOR NO CHEMICAL VTE PROPHYLAXISDOUGLAS HOYStart: 71-60-6500XODJDYUAP MONITORINGDOUGLAS HOYStart: 03-65-2683QSYVG SIGNSDOUGLAS HOYStart: 78-36-7985TITQMVV STATUS (FROM ED OR OR/PROCEDURAL)VELASQUEZ HOYStart: 31-21-9423WXEUOXGYZXPOWCF HOYStart: 92-97-1748VP CONSULT TO INTERNAL MEDICINEDOUGAPOLLO HOYStart: 38-33-4723DFW 12-LEADDOUGLAS MINALY Start: 97-37-2488PGJWD METABOLIC PANELDOUGLAS HOYStart: 71-91-7351INR WITH AUTO DIFFERENTIALDOUGLAS HOYStart: 62-83-9564MWTMKTSOKLYKOEL HOYStart: 89-11-0641ELH WITH REFLEXDOUGLAS HOYStart: 10-01-7798Lwdnvsajsb exam chest 2 viewsDOUGLAS HOY Start: 46-95-5774RVFCO RT REFLEX TO CULTUREDANNYGLDEREK HOYStart: 16-87-2713YQHGHY PERIPHERAL HUMPHREY BUNCH Plan of Treatment DateCare ActivityDetailAuthorStart: 08-24-2024 End: 39-71-1432Hyvoxbs encounter pxezphptn15/01/2025 4:00 PM EDT Office Visit [facility] [address] [place] [phone] Curry Red MD [address] [place] [address] [facility]: 02-06-2024 End: 58-84-1436Vapxbhh encounter usokpuyaz25/13/2024 1:10 PM EST Office Visit [facility] [address] [place] [phone] Iva Ta PA [address] [place] [address] [facility] D[facility]MStart: 01-16-2024 End: 58-72-2755Twlibfo encounter /22/2024 11:50 AM EST Office Visit [facility] [address] [place] [phone] Iva Ta PA [address] [place] [address] ArrivedNOMS [facility] DERMComment on above:ArrivedStart: 59-75-9154Kzmbbdcjm vaccinationInfluenza Vaccine (#1)[facility] HealthcareStart: 45-06-6639Qbbcf X-ray of right handXR hand RT min 3V*[facility]: 53-01-2967AW Hand - right GE 3 ViewsProtestant Deaconess Hospitaltart: 32-51-7131Fdtjgtckigfw Vaccine: 65+ Years (2 of 2 - PCV) Pneumococcal Vaccine: 65+ Years (2 of 2 - PCV)[facility] HealthcareStart: 10-14-2020 Creatinine measurementCreatinine monitoringPremier Health [facility]: 10-14-2020 Potassium monitoringPotassium monitoringPremier Health Miami Valley [facility]: 10-26-2019 Influenza vaccinationFlu vaccine (#1)[facility]: 78-37-6296Oedhpq Wellness Visit (AWV)Annual Wellness Visit (AWV)[facility]: 96-20-4206Bjtspasdgtfu 65+ years Vaccine (1 of 1 - PPSV23)Pneumococcal 65+ years Vaccine (1 of 1 - PPSV23)[facility]: 45-22-0500Rasuosrtq for osteoporosisDEXA (modify frequency per FRAX score)[facility]: 01-38-7581Djtsefti Vaccine (1 of 2)Shingles Vaccine (1 of 2)[place] Start: 08-37-6266SNsB/Tdap/Td vaccine (1 - Tdap)DTaP/Tdap/Td vaccine (1 - Tdap) [place] End: 69-95-0919AQTSNNL, CSFALBUMIN, CSF Lab Routine One Time for 1 Occurrences starting 10/11/2019 until 10/11/2019[place], [place]:One Time for 1 Occurrences starting 10/11/2019 until 10/11/2019Basic Metabolic Panel w/ Reflex to MGBasic Metabolic Panel w/ Reflex to MG Lab Routine Daily until discontinued starting 10/10/2019, 7 [place], [place]:Daily until discontinued starting 10/10/2019, 7 completedCBC auto differentialCBC auto differential Lab Routine Daily until discontinued starting 10/10/2019, 7 [place], [place]:Daily until discontinued starting 10/10/2019, 7 completedCulture, Blood [place] End: 57-50-6401Yugwlzb, UrineCulture, Urine Microbiology Routine One Time for 1 Occurrences starting 10/16/2019 until 10/16/2019[place], [place]:One Time for 1 Occurrences starting 10/16/2019 until 10/16/2019Culture, UrineCulture, Urine Microbiology [employer] Label Print 10/16/2019 1:08 PM EDT [facility], KYNebulizer therapyHHN Treatment Respiratory Care Routine As Needed until discontinued starting 10/11/2019[facility], KYComment on above:As Needed until discontinued starting 10/11/2019Oxygen therapy [Minimum Data Set]Initiate Oxygen Therapy Protocol Respiratory Care Routine Daily until discontinued starting 10/09/2019[facility], [place]Comment on above:Daily until discontinued starting 10/09/2019POCT GlucoseMercy Health Allen Hospital, KYComment on above:As Needed until discontinued starting 10/09/20194X Daily (AC & HS) until discontinued starting 10/09/2019 Immunizations Immunization DateImmunizationNotesCare XtvvuouyExgtqyfd85-57-0818KVDBB-26 mRNA- 1273 (Moderna)MD Velasquez Bunch Work Phone: [facility]02-26-2021COVID-19 mRNA-1273 (Moderna)MD Velasquez Bunch Work Phone: [facility]01-29-2021COVID-19 mRNA-1273 (Moderna)MD Velasquez Bunch Work Phone: [facility]10-05-2020influenza virus vaccine, unspecified formulationspencere Keyon HARRIS Work Phone: [facility] Payers DatePayer CategoryPayerPolicy [id number] (Managed Care) [id number] [id number] [id number] [id number] 1960Self-pay [id number] [id number] [id number] 2.16.840.1.803116.3.57[id number] 2.16.840.1.905873.3.57[id number] 2.16.840.1.875793.3.57[id number] 2.16.840.1.504546.3.57[id number] 2.16.840.1.07[id number] 2.16.840.1.254383.3.579.2.531 Social History DateTypeDetailFacilityStart: 87-38-0305Qfnqeju smoking status NHISNever smoker [facility]: 10-09-2019 End: 33-98-3407Qeybwko use and exposureNever usedPremier Health [facility]: 68-89-4666Cvxzvbx intakeCurrent non-drinker of alcohol (finding)[facility]: 43-98-2306Hsh Assigned At BirthNot on [place], [place] Exposure to SARS-CoV-2 (event)Not surePremier Health [facility]: 37-08-5771Poh Assigned [facility] Birth[facility]: 08-23-2022 End: 21-99-1102Nzcuvcd smoking status NHISEx-smoker (finding)[facility] HealthHistory of tobacco useCurrent smokerNOMS HealthcareHistory of tobacco useCigarette SmokerNOMS HealthcareStart: 04-17-2023 End: 48-57-6669Ihrogaz of Social functionNOMS HealthcareStart: 04-17-2023 End: 28-27-9460Khvaipv use panelNOMS HealthcareStart: 60-76-1466Niqerym Comment Last smoked: 10-15 yearsC[facility] Clinical Notes 05-18-2020 to 12-22-2024 Note Date & SpoqBympAdwnwlwe97-20-6545 [facility]24 NoteRECEIVED REFERRAL FOR PATIENT FOR GALLBLADDER COLIC, CALLED PATIENT WHO STATED SHE IS GOING TO TALK TO PCP AND WOULD LIKE TO HAVE THIS DONE CLOSER TO HOME. [facility]07-04-2025 NoteUnKeenan Private Hospital07-04-2025 NoteUnKeenan [facility] Hospital07-04-2025 Note [facility]06-25-2025 NoteSpoke to patient regarding vascular procedure- Patient is scheduled for 08/26/24 @ 1pm with an arrival time of 11am- preop labs entered. Patient educated on medication holds and lab work needing completed prior to OR. Patient verbalized understanding.[facility]06-12-2025 NoteSub[facility]06-11-2025 Note[facility] 08-04-2024 NoteUnKeenan Private Hospital04-25-2025 NoteSub[facility]04-14-2025 [facility] 05-20-2024 History of Present illness Narrative* [...] be refrigerated. Medication will be sent to [email or web address], contact information provided to patient, instructed [...] 3 month follow up documented in this encounterCoxHealthFplghjolpg62-43-1611 NotePatient called publicity writer direct line ([phone]), however calling to reach [facility] Nephrology. Visual Basic Developer provided patient with phone number to reach Nephrology ([phone]).[facility]03-18-2025 NoteUnKeenan Private Hospital02-07-2025 NoteUn[facility] 03-26-2024 NoteUnKeenan Private Hospital01-14-2025 NoteSub[facility]12-23-2024 [facility] 02-12-2024 Note[facility]12-19-2024 Note[facility]12-19-2024 NoteOccupational Therapy Name: Shayy Maynard Date of : 1945 Today's Date: 02/12/24 Pt is unable to be seen for therapy at this time secondary to Discharging !@ 1030 Check No Charge Time attempted: 0957UnKeenan [facility] Hospital12-18-2024 NoteSub[facility]12-18-2024 [facility] 02-11-2024 Note[facility]12-18-2024 Note[facility]12-17-2024 [facility] 02-10-2024 Note[facility]12-17-2024 Note[facility]12-17-2024 [facility] 02-10-2024 Note[facility]12-17-2024 Note[facility]12-17-2024 [facility] 02-10-2024 Note[facility]12-16-2024 Note[facility]12-16-2024 [facility] 02-09-2024 Note[facility]12-16-2024 Note[facility]12-16-2024 [facility] 02-08-2024 Note[facility]12-15-2024 Note[facility]12-15-2024 [facility] 02-08-2024 Note[facility]12-15-2024 Note[facility]12-14-2024 [facility] 02-07-2024 Note[facility]12-14-2024 Note[facility]12-13-2024 [facility] 02-06-2024 Note[facility]12-13-2024 Note[facility]12-13-2024 Note[facility] 02-06-2024 Note[facility]12-13-2024 Note[facility]12-12-2024 Note[facility] 02-05-2024 Note[facility]12-12-2024 Note[facility]12-12-2024 Note[facility] 02-05-2024 Note[facility]12[facility]11-2024 Note[facility]12-11-2024 [facility] 02-04-2024 NoteBrief follow up with RN. No family at bedside. Patient is sleeping. Patient is scheduled for angiogram today. Once procedure/test completed and patient medically cleared therapy will return for eval and recommendations. SW following.[facility]12-11-2024 NoteSub[facility]12-11-2024 NoteSub[facility]12-11-2024 Note [facility]12-11-2024 NoteSub[facility]12-10-2024 Note[facility]12-10-2024 Note [facility]12-10-2024 Note[facility]12-10-2024 NoteOccupational Therapy Name: Shayy Maynard Date of : 1945 Today's Date: 02/03/24 Pt is unable to be seen for therapy at this time secondary to Medically unstable today per nsg . Check No Charge Time attempted: 1113UnKeenan [facility] Hospital12-10-2024 NoteSub[facility]12-10-2024 Note[facility] 02-03-2024 NoteSub[facility]12-10-2024 NoteSub[facility]12-09-2024 NoteCase was discussed with the KEN on 02/02/2024. I agree with the history, physical, assessment, and plan of care. I discussed the findings and therapeutic plan. I agree with the documentation, except for any updates below. Daniela Van MDSuburban Community Hospital & [facility]12-09-2024 NoteSub[facility]12-07-2024 Note[facility] 01-31-2024 NoteSub[facility]12-07-2024 Note[facility]12-06-2024 Note[facility] 01-30-2024 NoteSub[facility]12-06-2024 Note[facility]12-06-2024 Note[facility] 01-30-2024 NoteSub[facility]12-06-2024 Note[facility]12-05-2024 Note[facility] 01-29-2024 NoteSub[facility]12-05-2024 Note[facility]12[facility]05-2024 Note[facility] 01-29-2024 NoteSub[facility]12-04-2024 Vhos3214: PEDAL PULSES: PRE PROCEDURE RIGHT: PT/DOPPLER; DP/DOPPLER LEFT: PT/DOPPLER; DP/DOPPLERUnKeenan Private Hospital12-04-2024 Note 1701: FAMILY UPDATED ON PROGRESS OF PROCEDUREUnKeenan Private Hospital 01-28-2024 NoteSub[facility]12-04-2024 NoteSub[facility]12-04-2024 NotePeripheral IV Date/Time: 01/28/2024 4:39 PM Inserted by: Rick Brown MD Placement Needle size: 14 G Laterality: right Location: hand Local anesthetic: none Site prep: alcohol Technique: anatomical landmarks Attempts: 2[facility]12-04-2024 NoteSub[facility]12-04-2024 NoteSub[facility] 01-28-2024 NoteUnKeenan Private Hospital12-04-2024 NotePhysical Therapy Planned endovascular AAA repair today per RN. Will defer evaluation at this time and follow up post-operatively as appropriate. Peter Cartagena PT, DPTUnKeenan Private Hospital12-04-2024 Note Occupational Therapy Name: Shayy Maynard Date of : 1945 Today's Date: 01/28/24 Pt is unable to be seen for therapy at this time secondary to planned AAA sx today/nsg request to hold . Check No Charge Time attempted: 730UnKe[facility]12-03-2024 NoteCase was discussed with the KEN on 01/27/2024. I agree with the history, physical, assessment, and plan of care. I discussed the findings and therapeutic plan. I agree with the documentation, except for any updates below. Scarlett Sharpe MDUnKeenan Private Hospital12-03-2024 NoteUnKeenan Private Hospital12-03-2024 [facility] 01-16-2024 History of Present illness Narrative* [...] Next Visit: 4-6 weeks documented in this encounterCoxHealthTvjztlzwqs03-87-7532 NoteSuburban Community Hospital & [facility]04-22-2021 Note [id number]:127[facility] 06-15-2020 NoteCystoscopy with Urethral Dilation ? [...] have a fever over [address] [facility]03-25-2021 [id number]:127[facility]03-25-2021 NoteCystoscopy with Urethral Dilation ? Voiding [...] have a fever over [address] [facility] HospitalEvaluation note* Diagnosis Onset Date Resolution Status Trigger finger, right middle finger acuteTrigger finger, right ring fingerRegional Medical Center Work Phone: Evaluation note* Diagnosis Other atopic dermatitis- Primary documented in this encounter [facility] HealthcareEvaluation note* Diagnosis Other atopic dermatitis- Primary High risk medication use documented in this encounter [facility] Healthcare Summary Purpose Family History No Family [...] Contact Information Primary Emergency Contact: Deep Maynard [facility] Relation: Spouse Past Surgical History: [...] Assisted Dressing Assisted Toileting Assisted Feeding Assisted Bridge Repairer Independent Med Delivery whole Wound Care Documentation [...] NOT a DME order): n/a Other Treatments: long term, home health aide services Patient's personal belongings (please select all that are sent with patient): patient has all belongings RN SIGNATURE: CASE MANAGEMENT/SOCIAL WORK SECTION Inpatient Status Date: 10-09-2019 Readmission Risk Assessment Score: Readmission Risk Risk of Unplanned Readmission: 12 Discharging to Facility/ Agency [facility]: [facility] Address: Phone: Fax: Dialysis Facility (if applicable) Name: Address: Dialysis Schedule: Phone: Fax: Miter Grinder Operator/Pointing Machine Operator signature: EDT ICIAN SECTION Prognosis: Fair Condition [...] size monitoring with PCP F/u urologist at [facility] in 1 week for lowe and void trial Take docusate 100 mg daily and miralax 17 g daily. documented in this encounter History of Present Illness * Tami Ni RN - 10/16/2019 5:51 PM EDT Visual Basic Developer discharged patient @ 1745 by wheelchair off unit with . Visual Basic Developer went over all discharge paperwork and patient [...] Thank you * Willie Garcia APRN - WASH MILL OPERATOR - 10/16/2019 12:40 PM EDT Neurology Nurse [...] who was admitted as a transfer from [facility] 10/09/2019 where she presented with gradually worsening [...] to ensure the accuracy of this automated quality assurance test program manager, some errors in quality assurance test program manager may have occurred. * Bruce Pelletier MD - 10/16/2019 11:07 AM EDT [facility] Internal Medicine Teaching Residency Program Inpatient Daily Progress Note Patient: Shayy Maynard Date of : 1945 Acct: [id number] Room: Admit date: 10/09/2019 Today's date: 10/16/19 [...] of COPD, primary hypertension was transferred from [facility] for management of infrarenal abdominal aortic aneurysm and for vascular consultation. States she started having lower back pain since . Describes the pain as constant, sharp, 10out of 10 in intensity associated with nausea. Patient went to the emergency department at [facility] to have hypertensive emergency with systolics above 200 and d-dimer was elevated. CT abdomen was done which showed 3.5 infrarenal aortic aneurysm, started on Cardene drip and pain medications we re given. Patient was transferred to [facility] found to be hypoxic in upper [...] Q4H PRN hydrALAZINE, 10 mg, Q6H PRN hdoqrmoaad-krvmhhtoumpof-vxnxkmgj, 1 tablet, Q4H PRN sodium chloride flush, [...] Dwayne Hanson MD Internal Medicine Resident, PGY-1 [facility]; [place], [place] 10/16/2019, 11:07 AM I have discussed [...] 9:31 AM EDT [facility] - Progress Note Today's Date [...] culture. Medical Decision Making/Summary/Discussion:10/16/2019 Infection Control Recommendations [place] Precautions Antimicrobial Stewardship Recommendations Discontinuation of therapy [...] of . INITIAL HISTORY: Patient transferred from [facility] on 10-09-19 because of low back pain and findings of an infrarenal abdominal aortic aneurysm. Developed onset of back pain on 10-07-19, associated with nausea. She was evaluated at [place] [facility] and found to have a hypertensive emergency with systolic pressures over [address] showed a 3.5 cm infrarenal aortic aneurysm. Her BP was controlled with Cardene drip and the patient was transferred to [facility]. At [facility] patient had signs of hypoxia, [...] file Gets together: Not on file Attends jain service: Not on file Active member of [...] Initial FINDINGS: CTA NECK: AORTIC ARCH/ARCH VESSELS: Eoqo-ig-kzwplxwd atherosclerotic plaque at the arch arch and [...] No acute pulmonary process. Emphysema. Medical Decision Witgft-Gvmiualk-Oqloa: 10/15/2019 12:10 AM - Blanco Moreau Incoming Lab Results From [facility] Specimen Information: Blood Component Collected Lab Specimen Description 10/12/2019 2:17 PM [facility] .BLOOD Special Requests 10/12/2019 2:17 PM [facility] back lt arm 3ml Culture 10/12/2019 2:17 PM [facility] NO GROWTH 3 DAYS Medical Decision Making-Other: Note: Labs, medications, radiologic studies were reviewed with personal review of films Large amounts of data were reviewed Discussed with nursing Staff, supply planner Infection Control and Prevention measures reviewed [...] Patel RN - 10/16/2019 6:15 AM EDT Visual Basic Developer bladder scanned patient and bladder scan shows 554 mL, publicity writer straight cath patient and was only [...] loss Fluid Accumulation: 1 - Mild Extremities Trombone Slide Assembler Strength: Not Performed Estimated Daily Nutrient Needs: Energy (kcal): 1.3-1.4 ~> 5932-3589 kcals/d; Weight Used for Energy Requirements: Admission Protein (g): 1.2-1.4 ~> 65-76 gms/d; Weight Used for Protein Requirements: [place] Nutrition Related Findings: Na 131 Wounds: None Current Nutrition Therapies: DIET GENERAL; Anthropometric Measures: Height: 5' 4 (162.6 cm) Current Body Weight: 154 lb (69.9 kg) Admission Body Weight: 154 lb (69.9 kg) Usual Body Weight: 160 lb (72.6 kg)(per pt's ) [place] Body Weight: 120 lbs; % [place] Body Weight 128.3 % BMI: 26.4 BMI [...] Discharge Planning: Too soon to determine Contact: [phone] * Dwayne Hanson MD - 10/15/2019 3:09 PM EDT [facility] Internal Medicine Teaching Residency Program Inpatient Daily Progress Note Patient: Shayy Maynard Date of : 1945 Acct: [id number] Room: Admit date: 10/09/2019 Today's date: 10/15/19 [...] of COPD, primary hypertension was transferred from [facility] for management of infrarenal abdominal aortic aneurysm and for vascular consultation. States she started having lower back pain since . Describes the pain as constant, sharp, 10out of 10 in intensity associated with nausea. Patient went to the emergency department at [facility] to have hypertensive emergency with systolics above 200 and d-dimer was elevated. CT abdomen was done which showed 3.5 infrarenal aortic aneurysm, started on Cardene drip and pain medications we re given. Patient was transferred to [facility] found to be hypoxic in upper [...] Q4H PRN hydrALAZINE, 10 mg, Q6H PRN hwduixjyjx-hqkuyimdgqwcy-mbrqguvt, 1 tablet, Q4H PRN sodium chloride flush, [...] Dwayne Hanson MD Internal Medicine Resident, PGY-1 [facility]; [place], [place] 10/15/2019, 3:09 PM Associated attestation - [...] - 10/15/2019 3:09 PM EDT Occupational Therapy [facility] Occupational Therapy Not Seen Note DATE: 10/15/2019 [...] appropriate. Winifred Foster, OT/S * Sho Tierney, INSURANCE CLAIMS CLERK - 10/15/2019 1:55 PM EDT Physical Therapy Facility/Department: [facility] CAR 2 Daily Treatment Note NAME: Shayy [...] place: No Restraints: all rail up when INSURANCE CLAIMS CLERK left, okay with pt Therapy Time Individual [...] who was admitted as a transfer from [facility] 10/09/2019 where she presented with gradually worsening [...] to ensure the accuracy of this automated quality assurance test program manager, some errors in quality assurance test program manager may have occurred. * Sailaja Durán RN - 10/15/2019 9:00 AM EDT Pt straight cathed for 850 cc clear yellow urine. Tolerated well. Will continue to monitor. * Alfonso Kendrick MD - 10/15/2019 8:38 AM EDT [facility] - Progress Note Today's Date [...] antibiotics Medical Decision Making/Summary/Discussion:10/15/2019 Infection Control Recommendations [place] Precautions Antimicrobial Stewardship Recommendations Discontinuation of therapy [...] of . INITIAL HISTORY: Patient transferred from [facility] on 10-09-19 because of low back pain and findings of an infrarenal abdominal aortic aneurysm. Developed onset of back pain on 10-07-19, associated with nausea. She was evaluated at [facility] and found to have a hypertensive emergency with systolic pressures over [address] showed a 3.5 cm infrarenal aortic aneurysm. Her BP was controlled with Cardene drip and the patient was transferred to [facility]. At V patient had signs of hypoxia, [...] file Gets together: Not on file Attends jain service: Not on file Active member of [...] Initial FINDINGS: CTA NECK: AORTIC ARCH/ARCH VESSELS: Cxbo-pe-qbrgcflw atherosclerotic plaque at the arch arch and [...] No acute pulmonary process. Emphysema. Medical Decision Rvyflp-Yxlhdekp-Kyryo: 10/15/2019 12:10 AM - Prieto[facility]anco Incoming Lab Results From [facility] Specimen Information: Blood Component Collected Lab Specimen Description [facility] Special Requests 10/12/2019 2:17 [facility] back lt arm 3ml Culture 10/12/2019 2:17 PM [facility] NO GROWTH 3 DAYS Medical Decision Making-Other: Note: Labs, medications, radiologic studies were reviewed with personal review of films Large amounts of data were reviewed Discussed with nursing Staff, supply planner Infection Control and Prevention measures reviewed [...] Hanson MD - 10/14/2019 1:29 PM EDT [facility] Internal Medicine Teaching Residency Program Inpatient Daily Progress Note Patient: Shayy Maynard Date of : 1945 Acct: [id number] Room: Admit date: 10/09/2019 Today's date: 10/14/19 [...] of COPD, primary hypertension was transferred from [facility] for management of infrarenal abdominal aortic aneurysm and for vascular consultation. States she started having lower back pain since . Describes the pain as constant, sharp, 10out of 10 in intensity associated with nausea. Patient went to the emergency department at [facility] to have hypertensive emergency with systolics above 200 and d-dimer was elevated. CT abdomen was done which showed 3.5 infrarenal aortic aneurysm, started on Cardene drip and pain medications we re given. Patient was transferred to [facility] found to be hypoxic in upper [...] Q4H PRN hydrALAZINE, 10 mg, Q6H PRN whlagmemzp-qbsliwhimzjhj-ptaakjiz, 1 tablet, Q4H PRN sodium chloride flush, [...] Dwayne Hanson MD Internal Medicine Resident, PGY-1 [facility]; [place], [place] 10/14/2019, 1:29 PM Associated attestation - [...] by Bruce Pelletier MD * Jose Willie, SWITCHMAN SUPERVISOR - WASH MILL OPERATOR - 10/14/2019 11:22 AM EDT Neurology Nurse [...] who was admitted as a transfer from [facility] 10/09/2019 where she presented with gradually worsening [...] to ensure the accuracy of this automated quality assurance test program manager, some errors in quality assurance test program manager may have occurred. * Alfonso Kendrick MD - 10/14/2019 10:10 AM EDT [facility] - Progress Note Today's Date [...] antibiotics Medical Decision Making/Summary/Discussion:10/14/2019 Infection Control Recommendations [place] Precautions Antimicrobial Stewardship Recommendations Discontinuation of therapy [...] of . INITIAL HISTORY: Patient transferred from [facility] on 10-09-19 because of low back pain and findings of an infrarenal abdominal aortic aneurysm. Developed onset of back pain on 10-07-19, associated with nausea. She was evaluated at [facility] and found to have a hypertensive emergency with systolic pressures over [address] showed a 3.5 cm infrarenal aortic aneurysm. Her BP was controlled with Cardene drip and the patient was transferred to [facility]. At V patient had signs of hypoxia, [...] file Gets together: Not on file Attends jain service: Not on file Active member of [...] Initial FINDINGS: CTA NECK: AORTIC ARCH/ARCH VESSELS: Rbee-pv-riiibhto atherosclerotic plaque at the arch arch and [...] No acute pulmonary process. Emphysema. Medical Decision Hkhaak-Ranikxoj-Adyuz: Medical Decision Making-Other: Note: Labs, medications, radiologic studies were reviewed with personal review of films Large amounts of data were reviewed Discussed with nursing Staff, supply planner Infection Control and Prevention measures reviewed [...] Ferris, RAMÓN - 10/13/2019 10:40 PM EDT Visual Basic Developer contacted internal med regarding pt complaining of lower abdominal pain. States she has to void but is unable to. Bladder scanned her just now and >999. New order for one time straight cath. Straight cath completed at 2315. 900ml clear, yellow urine out with 63ml residual. Will continue to monitor. 0430- Visual Basic Developer contacted internal med regarding pt unable to void. Bladder scan shows 490. One time straight cath order placed at 0610. New bladder scan shows 571. Cath completed at 0645. 550ml clear, yellow urine out with 16ml residual. Will continue to monitor. Internal med also made aware that pt has not had bowel movement since admission. Mirilax administered. Bowel sounds active. * Linda Adhikari, INSURANCE CLAIMS CLERK - 10/13/2019 4:16 PM EDT Physical Therapy Facility/Department: [facility] 2 Daily Treatment Note NAME: Shayy [...] Hanson MD - 10/13/2019 9:30 AM EDT [facility] Internal Medicine Teaching Residency Program Inpatient Daily Progress Note Patient: Shayy Maynard Date of : 1945 Acct: [id number] Room: Admit date: 10/09/2019 Today's date: 10/13/19 Number of days in the hospital: 4 SUBJECTIVE Admitting Diagnosis: Aneurysm of infrarenal abdominal aorta (HCC) CC: Midline Lower Back Pain Pt examined at bedside. Chart & results reviewed. BP increased overnight - Freight [employer]one Machine Tender gave Norvasc and started IV Hydralazine early [...] of COPD, primary hypertension was transferred from [facility] for management of infrarenal abdominal aortic aneurysm and for vascular consultation. States she started having lower back pain since . Describes the pain as constant, sharp, 10out of 10 in intensity associated with nausea. Patient went to the emergency department at [facility] to have hypertensive emergency with systolics above 200 and d-dimer was elevated. CT abdomen was done which showed 3.5 infrarenal aortic aneurysm, started on Cardene drip and pain medications we re given. Patient was transferred to [facility] found to be hypoxic in upper [...] Q4H PRN hydrALAZINE, 10 mg, Q6H PRN yvgsjeioxa-vupcniizseyly-qyglibrx, 1 tablet, Q4H PRN sodium chloride flush, [...] Dwayne Hanson MD Internal Medicine Resident, PGY-1 [facility]; [place], [place] 10/13/2019, 9:31 AM Associated attestation - [...] problems. * Overall course ; show no roving changer time. Headache is improved Blood pressure improved Ultrasound renal duplex, concerning for unilateral renal artery stenosis Patient very sleepy Has tenderness in lower back X-ray lumbar spine done at the time of admission, concerning for possible fracture Ordering MRI lumbar spine Electronically signed by Bruce Pelletier MD * Viry Morelos, FLAQUITO - WASH MILL OPERATOR - 10/13/2019 8:44 AM EDT NEUROLOGY INPATIENT [...] negative for acute changes -IV Depacon 500mg [id number] x3 doses -Continued blood pressure management as [...] to ensure the accuracy of this automated quality assurance test program manager, some errors in quality assurance test program manager may have occurred. * Alfonso Kendrick MD - 10/13/2019 7:57 AM EDT [facility] - Progress Note Today's Date and Time: 10/13/2019, 7:57 AM Impression : Fever, etiology to be determined Intermittent Headaches, most likely side effect of the various medications being given for control of HTN. No apparent meningitis Low back pain Aneurysm infrarenal abdominal aorta Centrilobular emphysema Allergy to quinolones, sulfa Recommendations: Monitor off antibiotics Medical Decision Making/Summary/Discussion:10/13/2019 Infection Control Recommendations [place] Precautions Antimicrobial Stewardship Recommendations Discontinuation of therapy [...] of . INITIAL HISTORY: Patient transferred from [facility] on 10-09-19 because of low back pain and findings of an infrarenal abdominal aortic aneurysm. Developed onset of back pain on 10-07-19, associated with nausea. She was evaluated at [facility] and found to have a hypertensive emergency with systolic pressures over [address] showed a 3.5 cm infrarenal aortic aneurysm. Her BP was controlled with Cardene drip and the patient was transferred to [facility]. At V patient had signs of hypoxia, [...] file Gets together: Not on file Attends jain service: Not on file Active member of [...] Initial FINDINGS: CTA NECK: AORTIC ARCH/ARCH VESSELS: Cepz-fx-hrgooopl atherosclerotic plaque at the arch arch and [...] No acute pulmonary process. Emphysema. Medical Decision Ojrnli-Mnhmdume-Hhypx: Medical Decision Making-Other: Note: Labs, medications, radiologic studies were reviewed with personal review of films Large amounts of data were reviewed Discussed with nursing Staff, supply planner Infection Control and Prevention measures reviewed All prior entries were reviewed Administer medications as ordered Prognosis: Guarded Discharge planning reviewed Follow up as outpatient. Thank you for allowing us to participate in the care of this patient. Please call with questions. Dickson Hutchinson DPM Pager: - Office: * Divina Ferris RN - 10/13/2019 3:00 AM EDT Visual Basic Developer contacted internal med regarding pt blood pressure. [...] administer. New order for PO 10mg norvasc. Visual Basic Developer will continue to monitor BP and pain. * Alfonso Kendrick MD - 10/12/2019 4:32 PM EDT [facility] - Progress Note Today's Date [...] cultures Medical Decision Making/Summary/Discussion:10/12/2019 Infection Control Recommendations [place] Precautions Antimicrobial Stewardship Recommendations Discontinuation of therapy [...] of . INITIAL HISTORY: Patient transferred from [facility] on 10-09-19 because of low back pain and findings of an infrarenal abdominal aortic aneurysm. Developed onset of back pain on 10-07-19, associated with nausea. She was evaluated at [facility] and found to have a hypertensive emergency with systolic pressures over [address] showed a 3.5 cm infrarenal aortic aneurysm. Her BP was controlled with Cardene drip and the patient was transferred to [facility]. At V patient had signs of hypoxia, [...] file Gets together: Not on file Attends jain service: Not on file Active member of [...] Initial FINDINGS: CTA NECK: AORTIC ARCH/ARCH VESSELS: Qpiz-ic-amwvoicz atherosclerotic plaque at the arch arch and [...] No acute pulmonary process. Emphysema. Medical Decision Wtdvhz-Gncsjaun-Ypfkn: Medical Decision Making-Other: Note: Labs, medications, radiologic studies were reviewed with personal review of films Large amounts of data were reviewed Discussed with nursing Staff, supply planner Infection Control and Prevention measures reviewed All prior entries were reviewed Administer medications as ordered Prognosis: Guarded Discharge planning reviewed Follow up as outpatient. Thank you for allowing us to participate in the care of this patient. Please call with questions. Alfonso Kendrick MD Pager: - Office: * Malissa Anderson, INSURANCE CLAIMS CLERK - 10/12/2019 2:55 PM EDT Physical Therapy [...] Morris MD - 10/12/2019 1:53 PM EDT [facility] Internal Medicine Teaching Residency Program Inpatient Daily Progress Note Patient: Shayy Maynard Date of : 1945 Acct: [id number] Room: Admit date: 10/09/2019 Today's date: 10/12/19 [...] Q4H PRN hydrALAZINE, 10 mg, Q6H PRN jgnstxdwdo-kntlkyfnsymnd-ocgeaves, 1 tablet, Q4H PRN sodium chloride flush, [...] Denys Morris MD Internal Medicine Resident, PGY-3 [facility]; [place], [place] 10/12/2019, 1:53 PM * Bruce Pelletier MD - 10/12/2019 1:07 PM EDT Patient seen and examined Little sleepy, clonidine discontinued Hypertension controlled Headache improved MRI brain reviewed concerning for meningioma Work-up for secondary hypertension progress * Viry Morelos, SWITCHMAN SUPERVISOR - WASH MILL OPERATOR - 10/12/2019 6:51 AM EDT NEUROLOGY INPATIENT [...] to ensure the accuracy of this automated quality assurance test program manager, some errors in quality assurance test program manager may have occurred. * Divina Ferris RN - 10/11/2019 10:20 PM EDT Visual Basic Developer contacted internal med regarding pt headache of 3/10. Pt has IV toradol and reglan ordered. Pt is alert and oriented x2. Visual Basic Developer instructed to hold IV toradol and reglan and to administer PRN tylenol for the headache. Will continue to monitor. * Divina Ferris RN - 10/11/2019 10:20 PM EDT Visual Basic Developer contacted internal med regarding blood pressure 161/62 and temp of 99.9 after administering scheduled clonidine and lopressor. Pt rating headache 3/10. Visual Basic Developer instructed to hold scheduled IV toradol and reglan. 0435- Visual Basic Developer contacted internal med regarding BP. Visual Basic Developer unable to keep SBP <160. Visual Basic Developer administered PRN IV hydralazine at 2315 for a pressure in the 170s, pressure went to the 160s then back up.IV labetalol administered at 0315 for SBP in the low 180s. Pressure still in the 170s. No new orders at this time. Visual Basic Developer instructed to continue to monitor. 0530- IV hydralazine and PO fioricet administered. No new orders at this time. Will continue to monitor BP. * Divina Ferris RN - 10/11/2019 10:15 PM EDT Visual Basic Developer received call from Dr. Kendrick regarding pt [...] Hanson MD - 10/11/2019 2:46 PM EDT [facility] Internal Medicine Teaching Residency Program Inpatient Daily Progress Note Patient: Shayy Maynard Date of : 1945 Acct: [id number] Room: Admit date: 10/09/2019 Today's date: 10/11/19 [...] of COPD, primary hypertension was transferred from [facility] for management of infrarenal abdominal aortic aneurysm and for vascular consultation. States she started having lower back pain since . Describes the pain as constant, sharp, 10out of 10 in intensity associated with nausea. Patient went to the emergency department at [facility] to have hypertensive emergency with systolics above 200 and d-dimer was elevated. CT abdomen was done which showed 3.5 infrarenal aortic aneurysm, started on Cardene drip and pain medications we re given. Patient was transferred to [facility] found to be hypoxic in upper [...] Q4H PRN hydrALAZINE, 10 mg, Q6H PRN xenlgvublz-emmbuwjsvqjyh-ichlahkb, 1 tablet, Q4H PRN sodium chloride flush, [...] Dwayne Hanson MD Internal Medicine Resident, PGY-1 [facility]; [place], [place] 10/11/2019, 2:46 PM * Bruce Pelletier [...] Ambulation Assistance: Independent Transfer Assistance: Independent Active Phlebotomy Lab Assistant: Yes Occupation: Retired Additional Comments: pt reported [...] 10/11/2019 12:17 PM EDT Physical Therapy Facility/Department: [place] [address] Initial Assessment NAME: Shayy Maynard : 1945 [...] Ambulation Assistance: Independent Transfer Assistance: Independent Active Phlebotomy Lab Assistant: Yes Occupation: Retired Additional Comments: pt reported [...] of Toradol 15mg, Reglan 5mg, Benadryl 12.5mg [id number] x3 -Continued blood pressure management as you are doing -May consider LP through IR for persistent headache -We will follow Please note that this note was generated using a voice recognition dictation software. Although every effort was made to ensure the accuracy of this automated quality assurance test program manager, some errors in quality assurance test program manager may have occurred. * Marely Guardado RN - 10/10/2019 9:18 PM EDT Perfect served project control manager intermed: Patient is due to get 100mg [...] Hanson MD - 10/10/2019 11:58 AM EDT [facility] Internal Medicine Teaching Residency Program Inpatient Daily Progress Note Patient: Shayy Maynard Date of : 1945 Acct: [id number] Room: Admit date: 10/09/2019 Today's date: 10/10/19 [...] of COPD, primary hypertension was transferred from [facility] for management of infrarenal abdominal aortic aneurysm and for vascular consultation. States she started having lower back pain since . Describes the pain as constant, sharp, 10out of 10 in intensity associated with nausea. Patient went to the emergency department at [facility] to have hypertensive emergency with systolics above 200 and d-dimer was elevated. CT abdomen was done which showed 3.5 infrarenal aortic aneurysm, started on Cardene drip and pain medications we re given. Patient was transferred to [facility] found to be hypoxic in upper [...] Dwayne Hanson MD Internal Medicine Resident, PGY-1 [facility]; [place], [place] 10/10/2019, 12:00 PM * Giovanna Rodrigues [...] a 74 y.o. Female with transfer from [place]. Low back pain since . 3.4 infrarenal [...] [] Eloped FOLLOW-UP: Velasquez Bunch MD [address] [address] DISCHARGE MEDICATIONS: New Prescriptions No medications on [...] section and content) DATE CREATED AUTHOR 08/13/2017 [facility] DATE CREATED AUTHOR AUTHOR'S ORGANIZ ATION 11/03/2019 [facility] DATE CREATED AUTHOR AUTHOR'S ORGANIZ ATION 11/29/[address] [facility] DATE CREATED AUTHOR AUTHOR'S ORGANIZ ATION 06/18/2022 [facility] DATE CREATED AUTHOR AUTHOR'S ORGANIZ ATION 05/22/2024 [facility] DATE CREATED AUTHOR AUTHOR'S ORGANIZ ATION 08/20/2024 [facility] DATE CREATED AUTHOR AUTHOR'S ORGANIZ ATION 12/24/2024 [facility] Reason for Visit (unrecogniz ed section and content) ReasonCommentsAbdominal PainBack PainStatusReasonSpecialtyDiagnoses / Procedures Referred By ContactReferred To Contact Diagnoses AAA (abdominal aortic aneurysm) (HCC) Giovanna Rodrigues MD [address] [place] [address] [facility] ReasonCommentsEczemaReasonCommentsFollow-up Care Teams (unrecognized sec tion and [...] DateEnd Date Velasquez Bunch MD [address] [place] [place] [address] PCP - [facility]01/06/23Te MemberRelationshipSpecialtyStart Date End Date Velasquez Bunch MD [address] [place] [facility] [place] [facility] [place] [address] PCP - [facility]01/06/23Te MemberRelationshipSpecialtyStart Date End Date Velasquez Bunch MD [address] [place] [facility] [place] [address] [facility] - [facility]01/06/23Te MemberRelationshipSpecialtyStart Date End Date Velasquez Bunch MD [address] [place] [facility] [place] [address] PCP - [facility]01/06/23 Goals (unrecognized section and content) Goals [...] BE BASED ON THE PRIMARY CLINICAL RECORDS. [facility] [employer] [facility]. provides no warranty or guarantee of the accuracy or completeness of information in this document.
--- OUTSIDE RECORDS SUMMARY | 2024-12-29 19:39 | XMS_ITS | Continuity of Care Document ---
Author Organization [facility] Address [address] [place] [address] Phone Care Team Providers Care Biotechnologist Name Role Phone Lamin ([facility])Jaclyn MD Attending Provider Care Teams Patient Care Team Team Status: Inactive Member Role/Relationship Status Dates Jaclyn Kimble ([facility]) , Attending Provider Active Start: December 29, 2024 End: December 29, 2024 Chief Complaint and Reason for Visit Chief Complaint Admit Date Unknown December 29, 2024 3 :05pm Allergies, Adverse Reactions, Alerts Allergen Type Severity Reaction Last Updated Verified Status adhesive tape Allergy Unknown Rash March 9:37am Yes Active ciprofloxacin Allergy Unknown Vomiting March 9:37am Yes Active meperidine Allergy Unknown Anaphylaxis March 9:37am Yes Active moxifloxacin Allergy Unknown Anaphylaxis March 9:37am Yes Active nalbuphine Allergy Unknown Itching April 24, 2023 9:37am Yes Active promethazine Allergy Unknown Unknown Reaction Februa 2023 9:37am Yes Active Obpeeri-MTO-FpP Reductase Inhibitor Allergy Unknown Unknown Reaction March 9:37am Yes Active sulfacetamide Allergy Unknown Itching March 9:37am Yes Active sulfur Allergy Unknown Unknown Reaction April 24, 2023 9:37am Yes Active Social History Smoking Status Status Start Date End Date Date of Observa tion Ex-smoker (finding) April 24, 2023 11:20am Observation Status Observation Response Date of Response Legal Sex [facility] (finding) [facility] 1945 Family History Relationship Condition Age at Onset Recorded Date/T janki father Malignant neoplasm of lung Unknown motherMyocardial infarctionUnknown Problems Active Problems Problem Diagnosis/Recorded Date Onset Date Stat us Right hand pain April 07, 2023 10:22am Unknown Active Postoperative pain of extremity April 24, 2023 12 :32pm Unknown Active Trigger finger, right middle finger April 08 10:51am Unknown Active Trigger finger, right ring finger April 08, 2023 10:52am Unknown Active Other specified postprocedural states May 06, 2023 1:20pm Unknown Active Diabetes mellitus April 08, 2023 10:31am Unknown Active Hyperlipemia April 08, 2023 10:32am Unknown Active Hypertension April 08, 2023 10:32am Unknown Active Medications Medication Status Dose Units Route Directions Qty Days Refills S tart Date Stop Date End Date Reason(s) Instructions Adherence Empagliflozin (Jardiance) 10 mg tablet Active 10 MG PO Daily as needed for hyper glycemia April 17, 2023 12:00amif FSBS >200UnknownVit C,I-Ix-Wvlms-Lutein-Zeaxan (Preservision Areds-2) 250-90-40-1 mg hmwzljeIutvqn3YJSVETofcd dailyFebruary 2023 12:00amUnknownAcetaminophen (Acetaminophen Extra Strength) 500 mg oiflstCxflkc7169ATMQYmyyp 6 hours as needed for painFebruary 2023 12:00am UnknownHydrocodone-Acetaminophen 5-325 mg tabletActive1 - 2TABPOEVERY 4-6 HOURS as needed for kpcu6792Bjgqjynh 2023Trigger ring finger of right hand Trigger middle finger of right hand Postoperative pain of extremity Trigger finger, right ring finger Trigger finger, right middle finger Other acute postprocedural pain Pain in unspecified limbUnknownDoxycycline Hyclate 100 mg riiraoFtfvxb595ZRRZ Twice dkele7107Ookftsbp 2023 12:00amUnknownOndansetron 4 mg tablet,elspoykpdeyqrbFhbdgf9LUJVQfkmx 6 hours as needed for nausea and vomiting 301February 2023 12:00amUnknownHydrochlorothiazide 25 mg fvxtbeDrfokf84YA POEvery morningFebruary 2023 12:00amUnknownMemantine 28 mg capsule,sprinkle,ER 08ayCfnuyz06QAZMZsiwf morningFebruary 2023 12:00am UnknownDiclofenac Sodium 75 mg tablet,delayed release (DR/EC)Ovsjcyljeoyj38GSOV .prnFebruary 2023 12:00amFebruary 2023 9:33amMetformin 500 mg tablet extended release 24 noQkydme515QQHZPdten dailyFebruary 2023 12:00amUnknown Albuterol Sulfate 90 mcg/actuation HFA aerosol vqlkzbiWaqazt9EQPEZZSNLERNDIMhomi daily as needed for shortness of breath or wheezingFebruary 2023 12:00am UnknownFurosemide 20 mg hjilgbHblmct95IOSVZhifz as needed for edemaFebruary 2023 12:00amUnknownMeclizine 25 mg ssnrnxAsfoef94LAKIDhxva as needed for dizzinessFebruary 2023 12:00amUnknownEzetimibe (Zetia) 10 mg tabletActive 10MGPODaily at bedtimeFebruary 2023 12:00amUnknownDupilumab (Dupixent Pen) 200 mg/1.14 mL pen kqpvwwgiKuhfmrnkibac060QEGOFPDJDPKXS 2 WEEKSFebruary 2023 12:00amFebruary 2023 12:56pm Immunizations Immunization Event Date Not Given Reason Dose Number Stallion Keeper Lot Number Reason(s) Given Vaccine Information Statement (VIS) Detail Administration Location COVID-19 mRNA-1273 (Moderna) March 24, 2020 COVID-19 mRNA-1273 (Moderna)April 21OVID-19 mRNA-1273 (Moderna) December 20, 2020 Procedures Procedure Date Performed Status Urine Culture December 29, 2024 active Advance Directives Advance Directive Response Recorded Date/ Time Advance Directives No March 2:38pm Insurance Providers Guarantor Shayy Johnson Address [address] [place] [address] [facility] [address]Jmkgbob Info.Home Phone: Payer Group Member ID Coverage Type Subscriber Relationship to Subscriber Effective Date Expiration Date [facility] [id number] A Alex Id: [id number] [address] [place] [address] Home Phone: self Encounters Encounter Location(s) Arrival/Admit Date Discharge/Departure Date Discharge/Departure Disposition Provider(s) Departed Referred -[facility] December 29, 2024 3:05pm December 29, 2024 3:06pm Discharged to home care or self care (routine discharge) Jaclyn Kimble ([facility]) , MD Plan of Treatment Future Tests Future scheduled test information is unavailable Pending Tests Test Name Ordered Date Scheduled Date Urine Culture December 29, 2024 3:05pm Future Visits Future appointment information is unavailable Future Procedures Procedure Name Ordered Date Scheduled Date Urine Culture December 29, 2024 8:09pm Novemb er 2024 3:05pm Future Medications Future medication information is unavailable Patient Instructions Patient instructions are unavailable
[2024-12-29] MEDS: AMLODIPINE BESYLATE 5 MG TABLET 2.5 MG PO (20:10)
--- NOTE | 2024-12-29 20:24 | DIETREC ---
Recommend Heart Healthy diet.
[2024-12-29] MEDS: DOXYCYCLINE MONOHYDRATE 100 MG CAPSULE PO (21:03)
[2024-12-29] MEDS: ROPINIROLE HCL 0.25 MG TABLET 0.5 MG PO (21:03)
[2024-12-29] MEDS: APIXABAN 5 MG TABLET PO (21:03)
[2024-12-29] MEDS: CARVEDILOL 6.25 MG TABLET PO (21:03)
[2024-12-30] VITALS (24 sets, daily range): BP systolic 130–188; BP diastolic 50–85; PULSE 54–68; TEMP 36.4–37.1; O2SAT 90–99
[2024-12-30] MEDS: HYDRALAZINE HCL 20 MG/ML VIAL 10 MG IVP (04:42)
[2024-12-30] MEDS: ACETAMINOPHEN 325 MG TABLET 650 MG PO (04:43)
[2024-12-30 05:57] LABS: Hematocrit 32.0 % (36.0-48.0); Hemoglobin 9.9 g/dL (12.0-16.0); Mean Corpuscular HGB Conc 30.9 g/dL (29.9-35.2); Mean Corpuscular Hemoglobin 29.0 pg (26.7-34.0); Mean Corpuscular Volume 93.8 fL (81.0-99.0); Platelet Count 185 10^3/uL (150-450); Red Blood Count 3.41 10^6/uL (4.20-5.40); White Blood Count 5.8 10^3/uL (4.0-11.0)
[2024-12-30 06:26] LABS: Alanine Aminotransferase 15 U/L (14-59); Albumin Globulin Ratio 0.9; Albumin Level 2.5 g/dL (3.4-5.0); Alkaline Phosphatase 105 U/L (46-116); Anion Gap 10.6; Aspartate Amino Transferase 13 U/L (15-37); Blood Urea Nitrogen 17.0 mg/dL (7.0-18.0); Calcium 8.6 mg/dL (8.5-10.1); Carbon Dioxide 27.9 mmol/L (21.0-32.0); Chloride 109 mmol/L (98-107); Estimated GFR (African America 59 (>=60 mL/min/1.73m^2); Estimated GFR (Non-African Ame 49 (>=60 mL/min/1.73m^2); Globulin 2.7 g/dL; Glucose 93 mg/dL (74-106); Magnesium 2.0 mg/dL (1.8-2.4); Potassium 3.5 mmol/L (3.5-5.1); Sodium 144 mmol/L (136-145); Total Protein 5.2 g/dL (6.4-8.2)
[2024-12-30 06:29] LABS: Thyroid Stimulating Hormone 1.994 uIU/mL (0.358-3.740)
--- NOTE | 2024-12-30 07:00 | ECG_ITS ---
[facility] Test Date: 2024-12-30 Pat Name: ZACHARY MAYNARD Department: Room: [facility] Gender: Female Process Coach: : 1945 Requested By: [id number] Order Number: [id number] Reading MD: SCHUYLER ROBLERO M.D. Measurements Intervals Norris Rate: 60 P: -72 ID: 131 QRS: 0 QRSD: 93 T: 39 QT: 359 QTc: 359 Interpretive Statements NORMAL SINUS RHYTHM SINUS ARRHYTHMIA NONSPECIFIC ST & T-WAVE ABNORMALITY ABNORMAL ECG Compared to ECG 12/29/2024 11:57:11 ST & T-wave abnormality now present Ectopic atrial rhythm no longer present Electronically Signed On 12-30-2024 7:25:53 EST by SCHUYLER ROBLERO M.D.
--- OUTSIDE RECORDS SUMMARY | 2024-12-30 07:21 | XMS_ITS | Encounter Summary ---
Author Organization [facility] Address [address] [address] Care Team Providers Care Patrol Judge Name Role Phone Velasquez Langley MD Primary Care Provider [phone] Reason for Referral * (Routine) - Pending ReviewSpecialtyDiagnoses / ProceduresReferred By Contact Referred To Contact Diagnoses Paroxysmal atrial fibrillation (CMS/HCC) Procedures ECG 12 lead Isabelle Maldonado CNP [address] [place] [address] Phone: tel: fax: Referral IDStatusReasonStart DateExpiration DateVisits RequestedVisits [id number] [id number]/ Encounter Details DateTypeDepartmentCare Team (Latest Contact Info)Hytmzlzzjaw98/05/2025Orders Only [facility] Heart at [facility] [address] [place] [address] Migel RenettaONESIMO Paroxysmal atrial fibrillation (CMS/HCC) (Primary Dx) Social History Tobacco UseTypesPacks/DayYears UsedDateSmoking Tobacco: FormerCigarettes Smokeless Tobacco: NeverAlcohol UseStandard Drinks/WeekCommentsNever0 (1 standard drink = 0.6 oz pure alcohol)[facility] UtilitiesAnswerDate RecordedIn the past 12 months has [...] times a week01/27/2024How often do you attend jainism or worship services?Never01/27/2024o you belong to any clubs or organizations such as jainism groups, unions, fraternal or athletic groups, or school groups?No01/27/2024How often do you attend meetings of the clubs or organizations you belong to?Never01/27/2024re you , , , , never , or living with a partner?Chlafab9101/27/2024 AUDIT-CAnswerDate RecordedQ1: How often do you have [...] at all 08/26/2024PHQ-2AnswerDate RecordedPatient Health Questionnaire-2 Score0 05/11/2024[facility] [place] of Occupational Health - Occupational Stress QuestionnaireAnswerDate RecordedDo you feel stress - tense, restless, nervous, or anxious, or unable to sleep at night because yourmind is troubled all the time - these days?To some jszbbw3101/27/2024UT Safety & EnvironmentAnswerDate RecordedFear of Current or [...] were you homeless or living in a fdc (including now)?No08/26/2024 Hunger Vital SignAnswerDate RecordedWithin the past 12 months, you worried that your food would run out before you got the money to buymore.Never true08/26/2024 Within the past 12 months, the food you bought just didn't last and you didn't have money to get more.Never true08/26/2024CommentsNoSex and Gender InformationValueDate RecordedSex Assigned at GuyjbLnfxpq42/03/2024 11:08 AM EST Legal ItjGteunr64/29/2022 11:01 PM EDTGender BespswofNzbggv58/03/2024 11:08 AM ESTSexual OrientationHeterosexual or Mhbsflvo82/03/2024 11:08 AM ESTdocumented as of this encounter Plan of Treatment DateTypeDepartmentCare Team (Latest Contact Info)Aignmelsnzg45/08/2025 2:20 PM ESTOffice Visit [facility] [address] [place] [address] Bhavesh Fulton MD [address] [place] [address] NameTypePriorityAssociated DiagnosesOrder ScheduleECG 12 leadECGRoutine Paroxysmal atrial fibrillation (CMS/HCC) Ordered: 12/29/2024documented as of this encounter Visit Diagnoses Diagnosis Paroxysmal atrial fibrillation (CMS/HCC)- Primary Atrial fibrillation documented in this encounter Care Teams Team MemberRelationshipSpecialtyStart DateEnd Velasquez Langley MD [address] [facility] [address] [address] PCP - Ivsenav26/8/24documented as of this encounter
--- OUTSIDE RECORDS SUMMARY | 2024-12-30 07:21 | XMS_ITS | Encounter Summary ---
Author Organization [facility] Address [address] [place] [address] Care Team Providers Care Lpta Name Role Phone Velasquez Langley MD Primary Care Provider [phone] Reason for Visit * ReasonOnset DateCommentsMed Jdjzqz4912/27/2024 Encounter Details DateTypeDepartmentCare Team (Latest Contact Info)Tufnvidqujt53/03/2025Refill [facility] [address] [place] [address] Kristie Chow MA Mesenteric artery stenosis Social History Tobacco UseTypesPacks/DayYears UsedDateSmoking Tobacco: FormerCigarettes Smokeless Tobacco: NeverAlcohol UseStandard Drinks/WeekCommentsNever0 (1 standard drink = 0.6 oz pure alcohol)[facility] UtilitiesAnswerDate RecordedIn the past 12 months has the electric, gas, oil, or water [employer] threatened to shut off services in your [...] times a week01/27/2024How often do you attend druze or mormonism services?Never01/27/2024o you belong to any clubs or organizations such as druze groups, unions, fraternal or athletic groups, or school groups?No01/27/2024How often do you attend meetings of the clubs or organizations you belong to?Never01/27/2024re you , , , , never , or living with a partner?Uctozau7601/27/2024 AUDIT-CAnswerDate RecordedQ1: How often do you have [...] at all 08/26/2024PHQ-2AnswerDate RecordedPatient Health Questionnaire-2 Score0 05/11/2024Fin[facility] [place] of Occupational Health - Occupational Stress QuestionnaireAnswerDate RecordedDo you feel stress - tense, restless, nervous, or anxious, or unable to sleep at night because yourmind is troubled all the time - these days?To some bclbiy7001/27/2024UT Safety & EnvironmentAnswerDate RecordedFear of Current or [...] homeless or living in a fci (including now)?No08/26/2024 Hunger Vital SignAnswerDate RecordedWithin the past 12 months, you worried that your food would run out before you got the money to buymore.Never true08/26/2024 Within the past 12 months, the food you bought just didn't last and you didn't have money to get more.Never true08/26/2024CommentsNoSex and Gender InformationValueDate RecordedSex Assigned at PpvjhGxcwwn40/03/2024 11:08 AM EST Legal YytPgynzs74/29/2022 11:01 PM EDTGender SxmwqegnZkcyhv49/03/2024 11:08 AM ESTSexual OrientationHeterosexual or Xplqdvir30/03/2024 11:08 AM ESTdocumented as of this encounter Plan of Treatment DateTypeDepartmentCare Team (Latest Contact Info)Irlptddoqpt92/08/2025 2:20 PM ESTOffice Visit [facility] [address] [place] [address] Bhavesh Fulton MD [address] [place] [address] [address] [place] [address] documented as of this encounter Visit Diagnoses Diagnosis Mesenteric artery stenosis Stricture of artery documented in this encounter Care Teams Team MemberRelationshipSpecialtyStart DateEnd Velasquez Langley MD [address] [facility] [address] [address] PCP - Cnxrdvk49/8/24documented as of this encounter
--- OUTSIDE RECORDS SUMMARY | 2024-12-30 07:21 | XMS_ITS | Clinical Summary ---
Author Organization [facility] Address [address] [place] [address] Care Team Providers Care Cable Repairer Name Role Phone Unavailable Primary Care Provider Unavailabl e Social History Tobacco UseTypesPacks/DayYears UsedDateSmoking Tobacco: Never Assessed CommentsUnknownSex and Gender InformationValueDate RecordedSex Assigned at Not on fileLegal FpcFyujom47/02/2012 9:24 AM ESTGender IdentityNot on fileSexual OrientationNot on file Plan of Treatment Not on file
--- OUTSIDE RECORDS SUMMARY | 2024-12-30 07:21 | XMS_ITS | Clinical Summary ---
Author Organization [employer] [facility] tem Address [id number] [address] [place] [address] Care Team Providers Care Insulator Cutter And Former Name Role Phone Velasquez Langley MD Primary Care Provider [phone] Allergies Active AllergyReactionsCriticalityNoted GlmoJcbecghfXvlhinnaysod87/22/2019 Sdufhkjzfjhxw99/22/3025Vyksjzwdjn18/22/0938Ejkcuyaxkl07/22/2019Promethazine 10/15/20186605Byynqyi-Zvb-Cyi Reductase Eaayuxppkg55/22/2019Sulfa (Sulfonamide Antibiotics)10/15/2018 Medications MedicationSigDispense QuantityRefillsLast FilledStart DateEnd DateStatus ezetimibe (ZETIA) 10 mg tablet Take 10 mg by mouth daily.Active irbesartan (AVAPRO) 300 mg tablet Take 300 mg by mouth nightly.Active metoprolol tartrate (LOPRESSOR) 50 mg tablet Take 100 mg by mouth 2 (two) times a day.Active Social History Tobacco UseTypesPacks/DayYears UsedDateSmoking Tobacco: FormerSmokeless Tobacco: NeverChildcareAnswerDate DwzkchfvPpoduscazQntmxcj64/12/2019EmploymentAnswerDate TgzlqoroUalzmidsyeYwwerja74/12/2019Purpose - LifeAnswerDate RecordedPurpose and direction in qpsrZhqvjmg63/11/2021CommentsNoSex and Gender Information ValueDate RecordedSex Assigned at BirthNot on fileLegal KrlXhvtql89/06/2015 11:42 AM EDTGender IdentityNot on fileSexual OrientationNot on file Last Filed Vital Signs Vital SignReadingTime TakenCommentsBlood Prkhordb101/7708 10:41 PM EDT Hnwrm5944 10:41 PM WBNPaanzxfwsdm24.7 ??C (98 ??F)10/15/2018 10:41 PM EDTRespiratory Lzyi120910/15/2018 10:41 PM EDTOxygen Jphckyijip83%10/15/2018 8:09 PM EDTInhaled Oxygen Concentration--Ktdxdi32.8 kg (165 lb)10/15/2018 7:26 PM EDT Povysm630.6 cm (5' 4 )10/15/2018 7:26 PM EDTBody Mass Index28.32010/15/2018 7:26 PM EDT Plan of Treatment Health MaintenanceDue DateLast DoneCommentsDepression Efdzltfob52/30/1956Tobacco Vtaljnkwd21/30/1956DTaP,Tdap and Td Vaccines (1 - Tdap)05/23/1962Zoster (Shingles) Vaccine (1 of 2)05/23/1993Fall Risk Jqxhskdgn02/30/2009RSV ( or age 60+ yrs) (1 - 1-dose 75+ series)05/23/2018Influenza Yvxswam9310/25/2024 Medical Devices Not on file Insurance Care Teams Team MemberRelationshipSpecialtyStart Date Velasquez Langley MD PCP - GeneralFamily Medicine10/15/18
--- OUTSIDE RECORDS SUMMARY | 2024-12-30 07:21 | XMS_ITS | Clinical Summary ---
Author Organization [facility] Address [address] [address] Care Team Providers Care Supervisor Silvering Department Name Role Phone Velasquez Langley MD Primary Care Provider [phone] Allergies Active AllergyReactionsCriticalityNoted FklmYnrbgovmFmnqcurDkynzjs00/29/2025 BprscrhapxytUueur46/11/2024 Had to bring me back. Had to pump my heart LowulvqtNrfukel45/22/9496DajlpiiyqkPiadwjcbgovPoda85/08/2024NalbuphineItching, Hhpaqob2406/27/2017 Other Reaction(s): Itching LyzfvwzosnrdYsjoaif05/04/2018 Other Reaction(s): Unknown Reaction Itkzwjk-Otr-Seu Reductase WumglxglgbRooodhz19/04/2018Sulfa (Sulfonamide Antibiotics)Itching,Bagpjoz5706/27/2017 Other Reaction(s): Itching ZcyzlvXbltgdl20/29/2024 Medications MedicationSigDispense QuantityRefillsLast FilledStart DateEnd DateStatus albuterol [...] ProblemNoted DateDiagnosed DateV-tach12/22/2024Gallbladder colic08/27/2024 Chronic diastolic heart dpitsgh1702/02/2024Mesenteric artery kwlgxuau97/09/2024AA (abdominal aortic aneurysm) without ghgzevh0501/27/2024enign hypertensive heart disease without congestive heart nuyvfhz5312/31/2023oronary artery disease involving nooksack coronary artery of nooksack heart without angina pectoris 12/31/20233200Chwjrrpadknvgf48/11/2024iabetes /11/2024History of urinary tract rcirtdcgx79/11/2024ladder outlet mwkxvmwqcfy48/11/2024ostinfective urethral stricture in oucwbn6812/05/2023cute intractable vlxzxzko71/11/2024sthma 12/05/2023ladder /11/2024hronic obstructive pulmonary disease 12/05/20232244Rjdelso26/11/2024Female /11/2024etention of urine 12/05/2023Flank pain12/05/2023Gross tfsoxtyvd70/11/2024ure hypercholesterolemia 12/05/2023Other specified postprocedural xpieng3212/05/2023ostoperative pain of klkitsllb03/11/2024ight hand pain12/05/2023Stress incontinence of urine 12/05/2023Urge incontinence of urine12/05/2023OPD without exacerbation 12/05/2023trial nlutyuqehydg48/11/2024cute respiratory failure with hypoxia 12/05/2023NSVT (nonsustained ventricular tachycardia)12/02/2023yspnea on /08/2024Moderate inbotoehcvlh47/21/3043Odfkszrrgwi39/19/2020 Overview (12/05/2023): Replacement after MRI Aneurysm of infrarenal abdominal aorta10/09/2019 Resolved Problems ProblemNoted DateDiagnosed DateResolved DateV-tach/Unstable faxmun97/07/20234542Lettvmqmzyvt45Right renal artery aazralox61Secondary xomrwmnifpkd29 Wysumxhpzquo93Hypertensive lwrvbog31 Pmatfvhofhw17 Encounters DateTypeDepartmentCare CfgmCeibiknfyxq99/05/2025Orders Only [facility] [address] [facility] [place] [address] Renetta Lainez MA Paroxysmal atrial fibrillation (CMS/HCC) (Primary Dx)12/27/2024[facility] [address] [facility] [place] [address] Kristie Chow MA Mesenteric artery gxdewqxt53/29/2025 2:00 PM EDTOffice Visit [facility] [address] [place] [facility] [place] [address] Bhavesh Fulton MD Chronic diastolic heart failure (CMS/HCC) (Primary Dx); 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; Paroxysmal atrial fibrillation (CMS/HCC); V-tach (CMS/HCC); Abdominal aortic aneurysm (AAA) without rupture, unspecified part; Mesenteric artery stenosis; Benign hypertensive heart disease without congestive heart failure; Pure hypercholesterolemia; Type 2 diabetes mellitus without complication, without long-term current use of insulin (CMS/HCC)12/22/2024Orders Only [facility] [address] [facility] [place] [address] Kristie Chow MA ZAVALA (dyspnea on exertion) (Primary Dx)12/15/2024[facility] [address] [place] [phone] Ron Crooks PA-C Mesenteric artery fpxeqbuh16/28/2025Telephone [facility] [address] [facility] [place] [address] Renetta Lainez MA from Last 3 Months Family History RelationNameStatusCommentsFatherDeceasedMotherDeceased Social History Tobacco UseTypesPacks/DayYears UsedDateSmoking Tobacco: FormerCigarettes Smokeless Tobacco: Never Tobacco Cessation:Counseling Given: Yes Alcohol UseStandard Drinks/WeekCommentsNever0 (1 standard drink = 0.6 oz pure alcohol)[facility] UtilitiesAnswerDate RecordedIn the past 12 months [...] times a week01/27/2024How often do you attend rastafarian or zoroastrianism services?Never01/27/2024o you belong to any clubs or organizations such as rastafarian groups, unions, fraternal or athletic groups, or school groups?No 01/27/2024How often do you attend meetings of the clubs or organizations you belong to?Never01/27/2024re you , , , , never , or living with a partner?Ytzwtew6001/27/2024UDIT-CAnswerDate RecordedQ1: How often do you have a [...] hard at all08/26/2024PHQ-2AnswerDate Recorded Patient Health Questionnaire-2 Xyfuy386Fin[facility] point [facility] [place] of Occupational Health - Occupational Stress QuestionnaireAnswerDate RecordedDo you feel stress - tense, restless, nervous, or anxious, or unable to sleep at night because your mind is troubled all the time - these days?To some sqjyao0901/27/2024UT Safety & EnvironmentAnswerDate RecordedFear of Current or [...] a nursing home (including now)?No08/26/2024Hunger Vital SignAnswerDate RecordedWithin the past 12 months, you worried that your food would run out before you got the money to buymore.Never true08/26/2024Within the past 12 months, the food you bought just didn't last and you didn't have money to get more.Never true 08/26/2024CommentsNoSex and Gender InformationValueDate RecordedSex Assigned at IbghgXsbrec82/03/2024 11:08 AM ESTLegal EpwQhymlo58/29/2022 11:01 PM EDTGender OhrcqjqdArbxqf35/03/2024 11:08 AM ESTSexual OrientationHeterosexual or Ryqjakpl08/03/2024 11:08 AM EST Last Filed Vital Signs Vital SignReadingTime TakenCommentsBlood Jkpxazkl291/6710 2:12 PM EDT Hoanr211412/22/2024 2:12 PM JJOUeukmdvboqx30.2 ??C (98.9 ??F)08/27/2024 8:00 AM EDTRespiratory Eomr965308/27/2024 11:00 AM EDTOxygen Cvvjqahggb88%12/22/2024 2:12 PM EDTInhaled Oxygen Concentration--Mpquor53.6 kg (171 lb)12/22/2024 2:12 PM EDT Duktay668 cm (5' 3 )12/22/2024 2:12 PM EDTBody Mass Index30.291 2:12 PM EDT Plan of Treatment DateTypeDepartmentCare Team (Latest Contact Info)Iobksxfzplu83/08/2025 2:20 PM ESTOffice Visit [facility] [address] [place] [address] Bhavesh Fulton MD [address] [place] [address] MS:[address] [place] [address] Health MaintenanceDue DateLast DoneCommentsMedicare Annual Wellness (AWV) 4Diabetes: Retinopathy Slkyonnjs47/30/1954Adult Ahaszaz0505/23/1965Zoster Vaccines (1 of 2)05/23/1993Pneumococcal Vaccine: 50+ Years (2 of 2 - PCV) /Diabetes: Hemoglobin A1C/510/4COVID-19 Vaccine ( - 2024- season)510/, 05/19/2020, 04/21/2020, Additional history existsDepression Jfvikcyhw61Fall Risk Screening /05/2024Influenza HmuvnxoWqxcjywah80/22/2025, 12/08/2023, 12/25/2022, Additional history existsHIB VaccinesAged OutNo [...] IdentifierShelf Expiration DateModel / Serial / LotHeli-Fx Direct Mail Marketer And Endoanchor Cassette Implanted:Qty: 1 on 01/28/2024 by [facility]ep [facility]/A: [id number]/SA-85 / / [id number]:7 IMPLANTED, 10 COME IN A BOXEndurant Stent Graft System Implanted:Qty: 1 on 01/28/2024 by [facility]ep [facility]raftN/A: [id number] / [id number] / Endurant Ii Stent Graft Implanted:Qty: 1 on 01/28/2024 by [facility]ep [facility]N/A: [id number]/07/[id number] / [id number] / Description:LEFT COMMON ILIACEndurant Ii Stent Graft Implanted:Qty: 1 on 01/28/2024 by [facility]ep [facility]raftN/A: [id number] / [id number] / Description:RIGHT COMMON ILIACStent,Express2,Bili,[id number] - [id number] Implanted:Qty: 1 on 02/05/2024 by Gilberto [facility]itten [facility]entN/A: AbdomenBoston [id number]/05/2025 [id number] / / [id number],Expr Reid Moe,6.3n47x993 - [id number] Implanted:Qty: 1 on 02/05/2024 by Gilberto Whitten [facility]entN/A: AbdomenBOSTON SCIENTIFIC/[id number]/01/2027 [id number] / / [id number] Procedures Procedure NamePriorityDate/TimeAssociated DiagnosisCommentsHEMOGLOBIN U4GUtl-Gx 12/05/2023 3:35 AM EDT from Last 3 Months or Most Recently Relevant to Health Maintenance Results * Hemoglobin A1c (12/05/2023 3:35 AM EDT)ComponentValueRef RangeTest Method Analysis TimePerformed AtPathologist SignatureHemoglobin A1C5.34.0 - 6.0 % 12/05/2023 10:16 AM [facility] ([facility])Estimated Average Xzzvtnf335 mg/dL12/05/2023 10:16 AM [facility] ([facility])Specimen (Source) Anatomical Location / LateralityCollection Method / VolumeCollection Time Received TimeBloodVenous blood specimen / UnknownArterial Line / Unknown 12/05/2023 3:35 AM EDT1 4:04 AM EDT Narrative Authorizing ProviderResult TypeResult StatusDaniela Van MDLAB BLOOD ORDERABLES Final ResultPerforming OrganizationAddressCity/State/ZIP CodePhone Number [facility] ([facility]) [address] [place] [address] from Last 3 Months or Most Recently Relevant to Health Maintenance Insurance Advance Directives * Full Code (Latest Code Status on File) Date ActivatedDate InactivatedComments08/26/2024 5:06 PM08/27/2024 2:13 PM * Full Code Date ActivatedDate OjcktwynojoRcafvbef44/9/2024 6:08 AM02/12/2024 1:43 PM * Full Code Date ActivatedDate WwatbdkgfrgCzflyxmg67/3/2024 5:00 PM01/31/2024 2:34 PM * Full Code Date ActivatedDate RayxljacahdGzwhpstk65/11/2024 2:56 AM12/06/2023 2:19 PM Care Teams Team MemberRelationshipSpecialtyStart DateEnd Date Velasquez Langley MD [address] [facility] [place] [address] PCP - Tdnjezd04/8/24
--- OUTSIDE RECORDS SUMMARY | 2024-12-30 07:21 | XMS_ITS | Encounter Summary ---
Author Organization [facility] Address [address] [place] [address] Care Team Providers Care Replenishment Associate Name Role Phone Velasquez Langley MD Primary Care Provider Encounter Details DateTypeDepartmentCare Team (Latest Contact Info)Lcwyygbjqfn59/29/2025Orders Only [facility] [address] [place] [address] Kristie Chow MA ZAVALA (dyspnea on exertion) (Primary Dx) Social History Tobacco UseTypesPacks/DayYears UsedDateSmoking Tobacco: FormerCigarettes Smokeless Tobacco: NeverAlcohol UseStandard Drinks/WeekCommentsNever0 (1 standard drink = 0.6 oz pure alcohol)[facility] UtilitiesAnswerDate RecordedIn the past 12 months has the [employer], gas, oil, or water [employer] threatened to shut off services in your [...] times a week01/27/2024How often do you attend tenriism or orthodox services?Never01/27/2024o you belong to any clubs or organizations such as tenriism groups, unions, fraternal or athletic groups, or school groups?No01/27/2024How often do you attend meetings of the clubs or organizations you belong to?Never01/27/2024re you , , , , never , or living with a partner?Jqwgiey0701/27/2024 AUDIT-CAnswerDate RecordedQ1: How often do you have [...] Health Questionnaire-2 Score0 05/11/2024Fin[facility] [place] of Occupational Health - Occupational Stress QuestionnaireAnswerDate RecordedDo you feel stress - tense, restless, nervous, or anxious, or unable to sleep at night because yourmind is troubled all the time - these days?To some ryeeev3201/27/2024UT Safety & EnvironmentAnswerDate RecordedFear of Current or [...] were you homeless or living in a retirement (including now)?No08/26/2024 Hunger Vital SignAnswerDate RecordedWithin the past 12 months, you worried that your food would run out before you got the money to buymore.Never true08/26/2024 Within the past 12 months, the food you bought just didn't last and you didn't have money to get more.Never true08/26/2024CommentsNoSex and Gender InformationValueDate RecordedSex Assigned at BddxcHquicj46/03/2024 11:08 AM EST Legal FfiVhncie57/29/2022 11:01 PM EDTGender EpsojqbjQvonmj86/03/2024 11:08 AM ESTSexual OrientationHeterosexual or Djnreraw48/03/2024 11:08 AM ESTdocumented as of this encounter Functional Status * BPAnswerDate of DjywyuskecCsfdur072 2:12 PM Guerline Sheth MA * PulseAnswerDate of NjxuqohtzcUgyjln3430/29/2025 2:12 PM Guerline Sheth MA * Patient PositionAnswerDate of OjtmnnxjgmYpqjloIndiwwq43/29/2025 2:12 PM EDT Guerline Carlos MA * BPAnswerDate of GkdpasyifhSdmuix547/6712/22/2024 2:12 PM Guerline Sheth MA * PulseAnswerDate of YxpyzjtnkkGjnwpc5003/29/2025 2:12 PM Guerline Sheth MA * VgO3XdptdaBpxq of GfmhumbmifXyvsea6059/29/2025 2:12 PM Guerline Sheth MA * BP LocationAnswerDate of AssessmentAuthorLe arm12/22/2024 2:12 PM EDT Guerline Carlos MA * Patient PositionAnswerDate of TjpnqbbvrkGbejqpExzozdi01/29/2025 2:12 PM EDT Guerline Carlos MA documented as of this encounter Plan of Treatment DateTypeDepartmentCare Team (Latest Contact Info)Yuspdtvkhsv77/08/2025 2:20 PM ESTOffice Visit [facility] [address] [place] [address] Bhavesh Fulton MD [address] [place] [address] NameTypePriorityAssociated DiagnosesOrder SchedulePulmonary function testing Spirometry; Body Box (lung volumes, airway resistance, and SVC), DLCOPFTRoutine ZAVALA (dyspnea on exertion) Expected: 12/22/2024 (Approximate), Expires: 12/22/2025documented as of this encounter Visit Diagnoses Diagnosis ZAVALA (dyspnea on exertion)- Primary Other dyspnea and respiratory abnormality documented in this encounter Care Teams Team MemberRelationshipSpecialtyStart DateEnd Date Velasquez Langley MD [address] [facility] [address] [address] PCP - Owqzdls81/8/24documented as of this encounter
--- OUTSIDE RECORDS SUMMARY | 2024-12-30 07:21 | XMS_ITS | Clinical Summary ---
Author Organization [facility] Address [address], [address] [place] [address] Care Team Providers Care Remedy Developer Name Role Phone Velasquez Langley MD Primary Care Provider [phone] Allergies Active AllergyReactionsCriticalityNoted DateCommentsMoxifloxacinAnaphylaxisHigh 06/27/20170671Vxvnmxxxoaezq10/04/2875DnatuzaiheBhdfumzewmcMnpk97/04/2018Nalbuphine 06/27/20172938Unhjbrxyogws06/04/6269Avpiuad59/04/2018Sulfa Uaxpiumzyyp32/04/2018 Adhesive Tape06/27/2017 Medications MedicationSigDispense QuantityRefillsLast FilledStart DateEnd [...] tablet 5010/15/2019Active Active Problems ProblemNoted DateDiagnosed DateModerate qtibgtwyqrgy88/21/2020Right renal artery cqqlggow64/19/2020Secondary fklzfvrfkwel20/19/9191Gtniehqyexp39/19/2020 Overview (10/13/2019): Replacement after MRI Aneurysm of infrarenal abdominal aorta10/09/20197874Mhufnhybtqs48/05/2018 Hypertensive ssminom2006/28/20172338Pdfxvbfyqtec98/05/2018Acute intractable headache Social History Tobacco UseTypesPacks/DayYears UsedDateSmoking Tobacco: NeverSmokeless Tobacco: NeverAlcohol UseStandard Drinks/WeekCommentsNo0 (1 standard drink = 0.6 oz pure alcohol)CommentsNoSex and Gender InformationValueDate RecordedSex Assigned at BirthNot on fileLegal AcsInkqpm20/04/2018 9:20 PM EDTGender Identity Not on fileSexual OrientationNot on file Last Filed Vital Signs Vital SignReadingTime TakenCommentsBlood Wugwzgoi009/64010/16/2019 3:45 PM EDT Slutd015310/16/2019 8:25 AM KFKSrmvqhsxlas63.7 ??C (98 ??F)10/16/2019 8:25 AM EDT Respiratory Ptgn943110/16/2019 8:25 AM EDTOxygen Vdbgnkvqll88%10/16/2019 8:25 AM EDTInhaled Oxygen Concentration--Vlnnhc22.4 kg (148 lb 9.4 oz)10/16/2019 6:15 AM UMMWjpbrl242.6 cm (5' 4 )10/15/2019 3:22 PM EDTBody [...] MemberRelationshipSpecialtyStart DateEnd Date Velasquez Langley MD [address] [place] [address] PCP - GeneralFamily Medicine06/27/17
--- OUTSIDE RECORDS SUMMARY | 2024-12-30 07:21 | XMS_ITS | CCD ---
Author Organization [facility] Care Team Providers Care Jerker Name Role Phone VELASQUEZ BUNCH Unavailable Unavailable DALTONRACHAEL Unavailable Unavailable ALTON, BRUCE Unavailable Unavailable ALTON, BRUCE Unavailable Unavailable Velasquez Bunch Primary Care Provider JUDIE, GIOVANNA S Admitting Unavailable JUDIE, GIOVANNA S Attending Unavailable VELASQUEZ BUNCH Primary Care Unavailable JAMISON GALO Consulting Unavailable JUDIE, GIOVANNA S Consulting Unavailable ABEL RICHARD Consulting Unavailable CHIRRI, JIMMY Consulting Unavailable KENDRICK VENITA Consulting Unavailable DEMETER, FLORY H Consulting [...] HOY ., DR HOLDEN Primary Care Unavailable MD Velasquez Bunch Primary Care Provider MD Anju Lees Attending Provider Velasquez Bunch MD Primary Care Provider [phone] CURRY RED Attending Unavailable IVA AT Attending Unavailable Velasquez Bunch Attending Unavailable Velasquez Bunch Primary Care Unavailable Velasquez Bunch Admitting Unavailable HORANI, SCARLETT Attending Unavailable HORANI, SCARLETT Admitting Unavailable MARKER, RYAN J Referring Unavailable HORANI, SCARLETT Attending Unavailable HORANI, SCARLETT Admitting Unavailable HORANI, SCARLETT Referring Unavailable ODILIA, ULYSSESSOOK Referring Unavailable GEMA, PEARL Referring Unavailable YAÑEZ, CELENA Referring Unavailable AKKITA GRANADOS Attending Unavailable BEACHUM, ROSA Referring Unavailable MARLEE, ULISSES Referring Unavailable GEMA, PEARL Referring Unavailable TRISTAN, SAMADILSON Attending Unavailable NAZZAL, MUNIER Referring Unavailable ALI, [...] MUNIER Referring Unavailable TRISTAN, DIPTI Attending Unavailable TRISTAN, DIPTI Attending Unavailable HANNAHCAMERON Attending Unavailable ELTAHAWY, ROSIE Attending Unavailable TRISTAN, DIPTI Attending Unavailable YAÑEZ, CELENA Attending Unavailable YAÑEZ, CELENA Attending Unavailable YOVANY MONTALVO Attending Unavailable NAZZAL, MUNIER Attending Unavailable HERNANDEZ, KIRSTIE Referring Unavailable NAZZAL, MUNIER Attending Unavailable NAZZAL, MUNIER Admitting Unavailable Lamin ([facility]) Jaclyn MACIAS Attending Provider [phone] Allergies Allergy ClassificationReported Allergen(s)Allergy TypeDate of OnsetReaction(s) Facility (8 sources)Adhesive Tape; Translations: [Adhesive tape]Propensity to adverse reactions to drdp93-54-6961Lsrpgdj Reaction, [place], [place] (11 sources)CiprofloxacinDrug Kocvpld66-35-0078UqaoffrEqddi Health- [place], [place] (1 source)Hmg-Coa Reductase Inhibitors (Statins)Propensity to adverse reactions to knmc22-25-4881JheluEast [place] (12 sources)Meperidine; Translations: [MEPERIDINE]Drug Azbumld10-71-5158 [place], [place] (12 sources)moxifloxacin; Translations: [MOXIFLOXACIN]Drug Tswxuoo61-96-6258 Anaphylaxis, [place], [place] (12 sources)Nalbuphine; Translations: [NALBUPHINE]Drug Sseapdb33-52-4669Yuhtkfx [facility]- [place], [place] (12 sources)Promethazine; Translations: [PROMETHAZINE]Drug Aykayuh95-74-8270 [place], [place] (1 source)Sulfonamides (Antibiotic)Propensity to adverse reactions to drug 59-14-5329NmgptEast [place], [place] (3 sources)black walnut pollen extract; Translations: [LZXUNSP-OLQ-OBF REDUCTASE INHIBITORS]Drug Yjjtgou05-90-0550[facility] (2 sources)CiprofloxacinDrug Lzisosr76-26-6155Fwu [facility] Repository (2 sources)LevamisoleDrug Ycamymt78-81-4662Qou [facility] Repository (2 sources)MeperidineDrug Hvxxjru88-76-7900Lgv [facility] Repository (2 sources)moxifloxacinDrug Yupsvfy44-92-8405Tkz [facility] Repository (2 sources)NalbuphineDrug Qmnqzdc28-96-4979Zra [facility] Repository (1 source)Sulfonamides (Antibiotic)Drug allergy (disorder)44-64-6461Ehq [facility] Repository (5 sources)Sulfacetamide; Translations: [sulfacetamide]Drug Uawboyw33-81-9340 Unknown Reaction, [facility] (6 sources)Sulfur; Translations: [sulfur]Drug Pgzmgrv17-81-3134WckhvjwE[facility] (5 sources)Kspluoe-YME-SlA Reductase Inhibitor; Translations: [Myahnsc-NPG-WtF Reductase Inhibitor]Allergy to zofetlfhg49-82-9397QsbjnmnFair[facility] (6 sources)atorvastatinDrug Xtejxhk42-09-6932GlqkuanJSQQ Healthcare Work Phone: (7 sources)cefdinir; Translations: [CEFDINIR]Drug Tkuufnw52-47-6562KrnangsDZRB Healthcare (6 sources)HMG-CoA reductase inhibitorDrug Pjzswys54-75-5717GgxzxrlNYSJ Healthcare (6 sources)MeperidineDrug Dumtbvg64-16-6981QcrtcovPLCN Healthcare (6 sources)PromethazineDrug Wpvwtuu23-35-8892YYPA Healthcare (6 sources)Sulfonamides (Antibiotic)Drug Taoxrwq83-37-2832LqwpogaBYUZ Healthcare (6 sources)Wound Dressing AdhesiveDrug Phvjscm21-78-0703KpicplxSMTO Healthcare (1 source)CiprofloxacinDrug Fqtprao95-42-7884PumzjvcxyProm[facility] Rep[facility] (1 source)MeperidineDrug Bwgsvwc65-17-7982WrdkmrpupPromedica [facility] (1 source)moxifloxacinDrug Bpauott69-20-7072CnlfpfhcfPromedica Defiance [facility] Rep[facility] (1 source)NalbuphineDrug Tcyfxua55-48-8989CwgukfinxPromedica Defiance [facility] Repository (1 source)PromethazineDrug Kgfrzhe11-08-7202FoidcjzcoPromedica Defiance [facility] Repository (1 source)Aspirin; Translations: [ASPIRIN]Drug Lvawmqb76-20-3788NzsoxsklvmOhio[facility] (1 source)Sulfonamides (Antibiotic); Translations: [SULFA (SULFONAMIDE ANTIBIOTICS)]Propensity to adverse reactions to drug (disorder)06-27-2017 [facility] Medications Current Medications MedicationDrug Class(es)DatesSig (Normalized)Sig (Original)acetaminophen 500 mg oral tablet (3 sources)Start: 79-45-6682rrct 2 tablets by mouth every six hours as needed for painStart: 12-29-3453egphvjitahdwn (TYLENOL) tablet 650 mgacetaminophen 325 mg / butalbital 50 mg / caffeine 40 mg oral tablet (1 source)Barbiturate, Central Nervous System Stimulant, MethylxanthineStart: 34-66-7850sjzwyweufv-acetaminophen-caffeine (FIORICET, ESGIC) per tablet 1 tabletacetaminophen 325 mg / HYDROcodone bitartrate 5 mg oral tablet (1 source)Opioid AgonistStart: 11-28-1628nuxh 1 tablet by mouth every four to six hours as needed for bsfqywp403509 200 actuat albuterol 0.09 mg/actuat metered dose inhaler (4 sources)beta2-Adrenergic AgonistStart: 23-07-4525yvcr 1 puff(s) by inhalation twice daily as needed for wheezingStart: 64-85-4396Dgfwrssej Sulfate Active INHALATION April 08, 2023 12:00amalbuterol 0.833 mg/ml / ipratropium bromide 0.167 mg/ml inhalant solution (2 sources)Anticholinergic, beta2-Adrenergic AgonistStart: 10-11-2019 ipratropium-albuterol (DUONEB) nebulizer solution 1 ampuleStart: 10-09-2019 End: ampule, Inhalation, EVERY 4 HOURS WHILE AWAKE, First dose on 10/09/19 at 1600amiodarone hydrochloride 200 mg oral tablet (5 sources)AntiarrhythmicStart: 29-70-0459kygp 2 tablets by mouth twice daily, then [...] (5 sources)Dihydropyridine Calcium Channel BlockerStart: 06-29-2017 End: 74-24-3363bfsv 1 tablet by mouth once dailyamLODIPine (NORVASC) 10 MG tablet Take 1 tablet by mouth daily 30 tablet 3 10/15/2019 Activeapixaban 5 mg oral tablet (5 sources)Factor Xa Inhibitortake 1 tablet by mouth every twelve hoursEliquis 5 MG tablet 5 mg every 12 (twelve) hours Activeaspirin 81 mg chewable tablet (2 sources)Platelet Aggregation Inhibitor, Nonsteroidal Anti-inflammatory Drug Start: 06-32-6538bbsa 1 tablet by mouth once dailyaspirin 81 MG chewable tablet Take 1 tablet by mouth daily 30 tablet 3 10/16/2019 Activeaugmented betamethasone 0.5 mg/ml topical cream (6 sources)Corticosteroidbetamethasone, augmented, (Diprolene AF) 0.05 % cream Indications: Atopic Dermatitis Apply 1 application topically in the morning and 1 application before bedtime. Activebisacodyl 10 mg rectal suppository (1 source)Stimulant LaxativeStart: 49-13-7121lapfjutmw (DULCOLAX) suppository 10 mgcalcium chloride 0.0014 meq/ml / potassium chloride 0.004 meq/ml / sodium chloride 0.103 meq/ml / sodium lactate 0.028 meq/ml injectable solution (1 source)Start: 89-68-4410wjnnqpkt ringers infusiondocusate sodium 100 mg oral capsule (2 sources)Start: 10-17-2019 End: 58-02-8101naem 2 capsules by mouth once dailydocusate sodium (COLACE) 100 MG capsule Take 2 capsules by mouth daily 60 capsule 1 10/17/2019 11/17/2019 ActiveStart: 92-69-3962paqlanis sodium (COLACE) capsule 200 mgdoxycycline hyclate 100 mg oral tablet (1 source)Tetracycline-class DrugStart: 68-96-9799ywae 1 tablet by mouth twice daily2 ml dupilumab 150 mg/ml auto-injector (3 sources)Interleukin-4 Receptor alpha AntagonistStart: 01-14-2023 End: 10-29-5878Suidoajr 300 MG/2ML injection Indications: Other atopic dermatitis Inject 2 mL (300 mg) under the skin every 14 (fourteen) days. 4 mL 01/14/2023 01/16/2024 Discontinued (Side effects)empagliflozin 10 mg oral tablet (8 sources)Sodium-Glucose Cotransporter 2 InhibitorStart: 94-42-8294upae 1 tablet by mouth once daily as needed0.4 ml enoxaparin sodium 100 mg/ml prefilled syringe (1 source)Low Molecular Weight HeparinStart: 41-74-6004ccmyaa 40 mg by subcutaneous injection once daily40 mg, Subcutaneous, DAILY, First dose on 10/09/19 at 1245ezetimibe 10 mg oral tablet (12 sources)Dietary Cholesterol Absorption InhibitorStart: 62-54-6321xaev 1 tablet by mouth once daily at bedtimefexofenadine hydrochloride 180 mg oral tablet (5 sources)Histamine-1 Receptor AntagonistStart: 01-16-2024 End: 23-04-4611ojge 1 tablet by mouth once dailyfexofenadine (Brenda) 180 MG tablet Indications: Other atopic dermatitis Take 1 tablet daily, by mouth, 30 days 30 tablet 11 01/16/2024 05/21/2024 Discontinuedfurosemide 20 mg oral tablet (10 sources)Loop DiureticStart: 07-36-1142emvu 1 tablet by mouth once daily as needed for edemafurosemide (Lasix) 8 MG/ML solution Take by mouth Daily. Active glucagon (rdna) 1 mg injection (1 source)Antihypoglycemic AgentStart: 40-45-6293pvmjlkix (rDNA) injection 1 mg 150 ml glucose 50 mg/ml injection (3 sources)Start: 99-86-4865cdeoeqhz 5 % solutionStart: 37-64-6967jufvtwd (GLUTOSE) 40 % oral gel 15 gStart: 29-97-7424pdbzlakn 50 % IV solution hydrALAZINE hydrochloride 100 mg oral tablet (3 sources)Arteriolar VasodilatorStart: 30-90-3483uyrh 1 tablet by mouth every eight hourshydrALAZINE (APRESOLINE) 100 MG tablet Take 1 tablet by mouth every 8 hours 90 tablet 3 10/15/2019 ActiveStart: 61-05-1371fnnwBGJBGTX (APRESOLINE) tablet 100 mgStart: 87-97-1119giaqDFMSUWB (APRESOLINE) injection 10 mg hydroCHLOROthiazide 25 mg oral tablet (10 sources)Thiazide DiureticStart: 60-71-9293muox 1 tablet by mouth once daily in the morningtake 2 tablets by mouth in the morninghydroCHLOROthiazide (HYDRODiuril) 12.5 MG tablet Take 25 mg by mouth in the morning. Active hydrOXYzine hydrochloride 25 mg oral tablet (10 sources)AntihistamineStart: 01-16-2024 End: 13-79-1778qlvk 1 tablet by mouth every 30 days as neededhydrOXYzine HCl (Atarax) 25 MG tablet Indications: Other atopic dermatitis Take 1 tablet, by mouth,as needed for itching at bedtime, 30 day supply. 30 tablet 11 01/16/2024 05/21/2024 DiscontinuedStart: 67-33-5883qypj 1 tablet by mouth four times daily as neededhydrOXYzine HCl (Atarax) 25 MG tablet TAKE 1 TABLET BY MOUTH 4 TIMES A DAY NEEDED FOR 10 DAYS 11/13/2023 Activeinsulin lispro 100 unt/ml injectable solution (2 sources)Insulin AnalogStart: 69-30-3496uglhfjx lispro (HUMALOG) injection vial 0-3 Units24 hr [...] sources)Nonsteroidal Anti-inflammatory Drug, Cyclooxygenase InhibitorStart: 10-15-2019 End: 60-96-0554cyghcbcqj (TORADOL) injection 15 mgStart: 10-09-2019 End: 26-28-3010nmintxerc (TORADOL) injection 15 mglabetalol (NORMODYNE;TRANDATE) injection syringe 10 mg (1 source)Start: 61-60-4843wudtxjjku (NORMODYNE;TRANDATE) injection syringe 10 mglisinopril 40 mg oral tablet (4 sources)Angiotensin Converting Enzyme InhibitorStart: 04-24-5640nfje 1 tablet by mouth once dailylisinopril (PRINIVIL;ZESTRIL) 40 MG tablet Take 1 tablet by mouth daily 30 tablet 3 10/16/2019 ActiveStart: 15-57-7379jssrmwotxs (PRINIVIL;ZESTRIL) tablet 40 mgStart: 10-10-2019 End: 63-28-2179pmymqghepy (PRINIVIL;ZESTRIL) tablet 20 mgmeclizine hydrochloride 25 mg oral tablet (14 sources)AntiemeticStart: 73-90-7021anzf 1 tablet by mouth once daily as needed for dizzinessStart: 10-15-2019 End: 84-25-7218ltuowhgas (ANTIVERT) tablet 12.5 mgStart: 10-09-2019 End: 33-33-4099bpgnnalzq (ANTIVERT) tablet 25 mgtake 1 tablet by mouth three times daily as needed for dizzinessmeclizine (Antivert) 25 MG tablet Take 25 mg by mouth 3 (three) times a day as needed for dizziness. Lbwjhj73 hr memantine hydrochloride 28 mg extended release oral capsule (10 sources)P-rcupxf-E-aspartate Receptor AntagonistStart: 49-56-7995wxtq 1 capsule by mouth once daily in the morningStart: 92-89-4440Ibkbnqhvz Active MG PO April 08, 2023 12:00ammemantine (Namenda Titration Pack) 28 x 5 MG & 21 x 10 MG tablet pack Take by mouth See administration instructions. Follow package directions. Tfowlb46 hr metFORMIN hydrochloride 500 mg extended release oral tablet (10 sources)BiguanideStart: 34-10-2689wgvv 1 tablet by mouth twice dailyStart: 32-10-8406Tovchfegs Active MG PO April 08, 2023 12:00amtake 1 tablet by mouth at mealtime, then take 1 tablet by mouth every twenty-four hoursmetFORMIN, OSM, (Fortamet) 500 MG 24 hr tablet Take 500 mg by mouth in the evening. Take with meals. Do not crush, chew, or split. Activemetoprolol tartrate 100 mg oral tablet (4 sources)beta-Adrenergic BlockerStart: 97-87-4937ccmq 1 tablet by mouth twice dailymetoprolol tartrate (LOPRESSOR) 100 MG tablet Take 1 tablet by mouth 2 times daily 60 tablet 5 10/15/2019 ActiveStart: 55-57-5883iacqtwryop tartrate (LOPRESSOR) tablet 100 mgStart: 10-09-2019 End: 47-30-2122sqjh 50 mg by mouth twice daily50 mg, Oral, 2 TIMES DAILY, First dose on 10/09/19 at 1245 End: 06-84-6006oibf 2 tablets by mouth twice dailymetoprolol tartrate (LOPRESSOR) 50 MG tablet Take 100 mg by mouth 2 times daily 0 10/15/2019 Discont inued (REORDER)nitroglycerin 0.4 mg sublingual tablet (5 sources)Nitrate Vasodilatornitroglycerin (Nitrostat) 0.[address] 0.4 mg under the tongue ActiveNutritional Supplements (Ensure Active High Protein) liquid (5 sources)Nutritional Supplements (Ensure Active High Protein) liquid Take by mouth Daily Activeondansetron 4 mg disintegrating oral tablet (3 sources)Serotonin-3 Receptor AntagonistStart: 50-99-0207remm 1 tablet by mouth every six hours as needed for nausea and vomitingStart: 10-09-2019 End: 59-69-5474jjrmgqojuej (ZOFRAN) injection 4 mgStart: 10-09-2019 End: 10-89-9270pcseylvzvyz (ZOFRAN) 4 MG/2ML injectionondansetron (ZOFRAN-ODT) disintegrating tablet 4 mg (1 source)Start: 79-64-9058qlkqldmrrwu (ZOFRAN-ODT) disintegrating tablet 4 mg polyethylene glycol 3350 59091 mg powder for oral solution (3 sources)Osmotic LaxativeStart: 10-09-2019 End: 71-05-1679qqqu 17 g by mouth once dailypolyethylene glycol (GLYCOLAX) 17 g packet Take 17 g by mouth daily 527 g 5 10/16/2019 11/15/2019 ActivePotassium (6 sources)Potassium (POTASSIMIN PO) Take by mouth. ActivePotassium Chloride (2 sources)Start: 03-78-6470abqdaexkk chloride (KLOR-CON M) extended release tablet 40 mEqStart: 35-54-0317osce 10 mL intravenous route every hour as [...] sodium chloride 9 mg/ml injection (4 sources)Start: 54-96-2633tiwdsj chloride flush 0.9 % injection 10 mLStart: 10-11-2019 End: 67-36-4109vyvaog chloride flush 0.9 % injection 10 mLStart: 81-91-211410 mL, Intravenous, EVERY 12 HOURS SCHEDULED (2 times per day), First dose on 10/09/19 at 2100Start: 89-26-9321tvlc 10 mL intravenous route once as svheys90 mL, Intravenous, PRN, Line Care, After every IV line use, Starting 10/09/19 at 1227spironolactone 100 mg oral tablet (4 sources)Aldosterone AntagonistStart: 60-53-9616mvls 1 tablet by mouth once dailyspironolactone (ALDACTONE) 100 MG tablet Take 1 tablet by mouth daily 30 tablet 3 10/16/2019 ActiveStart: 10-09-2019 End: 71-75-3749uuhnyeeeuzfxdj (ALDACTONE) tablet 50 mgtiotropium 0.018 mg inhalation powder (5 sources)Anticholinergictake 1 capsule by inhalation once dailySpiriva HandiHaler 18 MCG inhalation capsule inhale 1 capsule by inhalation route every day Inhalation Activetriamcinolone acetonide 1 mg/ml topical cream (5 sources)CorticosteroidStart: 62-12-9636eviciwukoqpuk (Kenalog) 0.1 % cream Indications: Other atopic dermatitis Apply to affected areas, up to twice a day when flared, do not use one the face, groin, or underarms, 30 day supply 454 g 11 01/16/2024 ActiveVit C,K-Vf-Xsajg-Lutein-Zeaxan (Preservision Areds-2) 250-90-40-1 mg capsule (2 sources)Start: 52-48-1144Zuuwo: 46-85-9973Yci C,Z-Ax-Vgeed-Lutein-Zeaxan (Preservision Areds-2) 250-90-40-1 mg capsule Active 1 TAB PO Twice daily April 17, 2023 12:00am Completed/Discontinued Medications MedicationDrug Class(es)DatesSig (Normalized)Sig (Original)cloNIDine hydrochloride 0.1 mg oral tablet (2 sources)Central alpha-2 Adrenergic AgonistStart: 10-10-2019 End: 42-61-9398eiySXGcuy (CATAPRES) tablet 0.1 mgdiclofenac sodium 75 mg delayed release oral tablet (4 sources)Nonsteroidal Anti-inflammatory DrugStart: 04-08-2023 End: 24-65-3850Lvniyltlay Sodium 75 mg tablet,delayed release (DR/EC) Discontinued 75 MG PO .prn April 08, 2023 12:00am April 24, 2023 9:33amDupilumab (4 sources)Start: 04-08-2023 End: 57-03-6641Qurqtcgxo (Dupixent Pen) 200 mg/1.14 mL pen injector Discontinued 200 MG SUBCUT EVERY 2 WEEKS April 08, 2023 12:00am April 17, 2023 12:56pmStart: 20-22-9301Qsonuwkdu (Dupixent Pen) 200 mg/1.14 mL pen injector Active 200 MG SUBCUT EVERY 2 WEEKS April 08, 2023 12:00am2 ml fentaNYL 0.05 mg/ml injection (1 source)Opioid AgonistStart: 10-09-2019 End: 03-05-7030kpzpmOVJ (SUBLIMAZE) injection 50 mcgfluconazole 200 mg oral tablet (1 source)Azole AntifungalStart: 10-16-2019 End: 76-82-4112zcydfijxmdy (DIFLUCAN) tablet 200 mggadoteridol (PROHANCE) injection 12 mL (1 source)Start: 10-15-2019 End: 74-28-3107ryfxdlwykmz (PROHANCE) injection 12 mLgadoteridol (PROHANCE) injection 13 mL (1 source)Start: 10-11-2019 End: 84-27-1044iupixjnadwy (PROHANCE) injection 13 mL1 ml haloperidol 5 mg/ml injection (1 source)Typical AntipsychoticStart: 10-09-2019 End: 48-58-2809pushktqbxqn lactate (HALDOL) injection 5 mgStart: 10-09-2019 End: 57-01-2045ujnhsrsaene lactate (HALDOL) injection 5 mgIohexol (2 sources)Radiographic Contrast AgentStart: 10-10-2019 End: 20-11-7152hcalhsg (OMNIPAQUE 350) solution 90 mLStart: 10-09-2019 End: 87-88-0031pizbpoy (OMNIPAQUE 350) solution 75 mLirbesartan 300 mg oral tablet (1 source)Angiotensin 2 Receptor Dodie End: 17-39-1062ttny 1 tablet by mouth once dailyirbesartan (AVAPRO) 300 MG tablet Take 300 mg by mouth daily 0 10/09/2019 Discontinued (LIST CLEANUP) LORazepam 2 mg oral tablet (1 source)BenzodiazepineStart: 10-11-2019 End: 93-75-1856NKDuhkufe (ATIVAN) tablet 2 mg100 ml magnesium sulfate 10 mg/ml injection (1 source)Start: 10-10-2019 End: 51-23-9029yglmqtkbp sulfate 1 g in dextrose 5% 100 mL IVPB methylPREDNISolone 125 mg injection (1 source)CorticosteroidStart: 10-10-2019 End: 19-36-5880idpvsxSGRQGALnruzi sodium (SOLU-MEDROL) injection 250 mg2 ml metoclopramide 5 mg/ml prefilled syringe (1 source)Dopamine-2 Receptor AntagonistStart: 10-10-2019 End: 34-42-9807kkxisdhnbjguaf (REGLAN) injection 10 mgniCARdipine (CARDENE) 25 mg in dextrose 5 % 250 mL infusion (1 source)Start: 10-09-2019 End: 12-46-0104ziEDJcmubtp (CARDENE) 25 mg in dextrose 5 % 250 mL infusion potassium bicarbonate 20 meq effervescent oral tablet (1 source)Start: 10-12-2019 End: 05-11-8044lyfxxqywg bicarb-citric acid (EFFER-K) effervescent tablet 40 mEq valproate (DEPACON) 500 mg in dextrose 5 % 100 mL IVPB (1 source)Start: 10-13-2019 End: 37-88-5451tsaiznmqn (DEPACON) 500 mg in dextrose 5 % 100 mL IVPB Problems Active Problems Problem ClassificationProblemDateDocumented DateEpisodic/ChronicAllergic reactions (4 sources)Atopic dermatitis; Translations: [Other atopic dermatitis]01-16-2024 ChronicAortic; peripheral; and visceral artery aneurysms (3 sources)Abdominal aortic aneurysm without rupture; Translations: [Aneurysm of infrarenal abdominal aorta ]Onset: 980074-76-5293TrdxlgwRfgmpzp dysrhythmias (2 sources)Paroxysmal atrial fibrillation; Translations: [Paroxysmal atrial fibrillation]Onset: 86-93-5631QdruayeSjbjvfihlr associated with dizziness or vertigo (6 sources)Dizziness and giddiness; Translations: [Vertigo]Onset: 06-27-2017 EpisodicCongestive heart failure; nonhypertensive (6 sources)Chronic diastolic (congestive) heart failure; Translations: [Acute combined systolic (congestive) and diastolic (congestive) heart failure]Onset: 39-37-8132BuhokkfUnfzqapw atherosclerosis and other heart disease (2 sources)Atherosclerotic heart disease of [place] coronary artery without angina pectoris; Translations: [Atherosclerotic heart disease of [place] coronary artery without angina pectoris]Onset: 28-68-8320EktoewwLianoqsn mellitus without complication (6 sources)Diabetes mellitus; Translations: [Type 2 diabetes mellitus without complications]Onset: 300103-80-0307XsxatflPwjvoynev of lipid metabolism (9 sources)Hyperlipidemia; Translations: [Hyperlipidemia, unspecified]Onset: 134484-55-8991EqnmtaoZjoujombl hypertension (4 sources)Hypertensive disorder; Translations: [Essential (primary) hypertension]21-04-3921IisbkhlSdelm and electrolyte disorders (2 sources)Hypokalemia; Translations: [Hypokalemia]Onset: EpisodicHeadache; including migraine (2 sources)Headache; Translations: [Acute intractable headache]10-10-2019 EpisodicHypertension with complications and secondary hypertension (8 sources)Hypertensive urgency ; Translations: [Secondary hypertension]Onset: 521477-76-9890HjaifsqRqrszd and vomiting (1 source)Nausea and vomiting; Translations: [Nausea and vomiting, intractability of vomiting not specified, unspecified vomiting type]Episodic Nutritional deficiencies (2 sources)Malnutrition (calorie); Translations: [Moderate malnutrition (HCC)] Onset: 993713-52-1048JvzbxeoEsswv aftercare (2 sources)Taking high risk medication; Translations: [Other senior care (current) drug therapy]50-50-3832AbheonwzHbsyf circulatory disease (2 sources)Celiac artery compression syndrome; Translations: [Celiac artery compression syndrome]Onset: 00-51-0835XghbhygNbegc connective tissue disease (3 sources)Hand pain; Translations: [Pain in right hand]96-55-5668GloyaoegCdxvp connective tissue disease (8 sources)Triggering of digit; Translations: [Trigger finger, right middle finger]08-40-3781JziuupwnDvqbi connective tissue disease (3 sources)Trigger finger, right middle finger; Translations: [Trigger finger (acquired)]64-47-2960SnzctkwaWamxr connective tissue disease (3 sources)Trigger finger, right ring finger; Translations: [Trigger finger (acquired)]77-47-1406ZcqlzfzlNyrlc connective tissue disease (1 source)Pain in right hand; Translations: [Pain in right hand]04-07-2023 EpisodicOther nervous system disorders (1 source)Pain in limb; Translations: [Other acute postprocedural pain] 04-30-8232DyjycbguUslbvoprzi and visceral atherosclerosis (2 sources)Chronic vascular disorders of intestine; Translations: [Chronic vascular disorders of intestine]Onset: 01-16-5879BlrmyyxQlnpcgfqkt and visceral atherosclerosis (2 sources)Stenosis of right renal artery; Translations: [Right renal artery stenosis (HCC)]Onset: 785640-08-7497Xgpftbat codes; unclassified (1 source)Postprocedural state finding; Translations: [Other specified postprocedural states]85-28-6777HoarebidNlijhrchnss; intervertebral disc disorders; other back problems (1 source)Acute low back pain; Translations: [Acute low back pain, unspecified back pain laterality, unspecified whether sciatica present]EpisodicSyncope (4 sources)Syncope and collapse; Translations: [SYNCOPE AND COLLAPSE]Onset: 06-54-9273GjmavtvgGohveduhoufw (1 source)Hypertensive urgency; Translations: [Hypertensive urgency]Onset: 34-09-2493Ziqwkfcxrwap (3 sources)COUGH, UNSPECIFIED; Translations: [COUGH, UNSPECIFIED]Onset: 03-49-7642Lsiyovvoanue (1 source)CONTACT W/AND (SUSP) EXPOS COVID-19; Translations: [CONTACT W/AND (SUSP) EXPOS COVID-19]Onset: 81-24-7813Acprmvlwukmy (1 source)Infrarenal abdominal aortic aneurysm, without rupture; Translations: [Infrarenal abdominal aortic aneurysm, without rupture]Onset: 01-27-2024 Unclassified (1 source)Other ventricular tachycardia; Translations: [Other ventricular tachycardia]Onset: 21-17-2119Iippyagqdrou (1 source)Ventricular tachycardia, unspecified; Translations: [Ventricular tachycardia, unspecified]Onset: 75-71-4045Ruevpzdghkub (1 source)Abdominal aortic aneurysm, without rupture, unspecified; Translations: [Abdominal aortic aneurysm, without rupture, unspecified]Onset: 01-27-2024 Past or Other Problems Problem ClassificationProblemDateDocumented DateEpisodic/ChronicAcute and unspecified renal failure (2 sources)Acute kidney failure, unspecified; Translations: [Acute kidney failure, unspecified]Onset: 26-22-9599MjfrpvnjDwaangl tract disease (2 sources)Calculus of gallbladder without cholecystitis without obstruction; Translations: [Calculus of gallbladder without cholecystitis without obstruction]Onset: 23-89-2207ZwcfyrzjWhiqcuh dysrhythmias (2 sources)Palpitations; Translations: [Palpitations]Onset: EpisodicGenitourinary symptoms and ill-defined conditions (2 sources)Hesitancy of micturition; Translations: [Hesitancy of micturition] Onset: 56-60-1724AswhhfatQdjffne and fatigue (2 sources)Weakness; Translations: [Weakness]Onset: 08-48-1756YaprjxvwOzdqs aftercare (2 sources)Other senior care (current) drug therapy; Translations: [Other meterman (current) drug therapy]Onset: 84-51-3544VilymzseKasoh gastrointestinal disorders (2 sources)Constipation, unspecified; Translations: [Constipation, unspecified] Onset: 52-91-7029GwlbauspHfbcl lower respiratory disease (2 sources)Other forms of dyspnea; Translations: [Other forms of dyspnea]Onset: 58-51-4373HpcewaceSibnq nervous system disorders (2 sources)Other acute postprocedural pain; Translations: [Other acute postprocedural pain]Onset: 90-77-7327YfwncopaRwtuvslfdwtp (1 source)COUGH, UNSPECIFIED; Translations: [COUGH, UNSPECIFIED]Onset: 45-25-3393Mkjxhtrutupb (1 source)Infrarenal abdominal aortic aneurysm, without rupture; Translations: [Infrarenal abdominal aortic aneurysm, without rupture]Onset: 07-22-2024 Unclassified (1 source)Other ventricular tachycardia; Translations: [Other ventricular tachycardia]Onset: 06-10-0100Uoblbbcimtac (1 source)Ventricular tachycardia, unspecified; Translations: [Ventricular tachycardia, unspecified]Onset: 38-36-3289Weqlmxpliyjr (1 source)Abdominal aortic aneurysm, without rupture, unspecified; Translations: [Abdominal aortic aneurysm, without rupture, unspecified]Onset: 01-27-2024 Results Test NameValueInterpretationReference QwmpaWmesdlom34ub 64-49-478731FvwphpOur Lady of Mercy [facility] - Anderson36Spoke with patient and she was currently in the car and not able to check her BP and HR. Asked her to call me back later today when she gets home and checks those. Patient agreed to do so.NormalUnOhioHealth Dublin Methodist Hospital36on 51-55-495634NzcxgdNpspswvkms of [place] [facility] Gjffha00zj 68-21-618116Gxtoyz [facility] - DublinBASIC METABOLIC PANELon 13-49-4169Oaeta gap [Moles/Vol]11 mmol/LNormal7-20UnOhioHealth Dublin Methodist HospitalComment on above:Performed By: #### [id number] ####[facility] (BEAKER)[address] [facility], [place] [address]Sdoqdvj [Mass/Vol]8.6 mg/dLNormal8.6-10.3UnOhioHealth Dublin Methodist HospitalComment on above:Performed By: #### [id number] ####[facility] (BEawesomize.me)[address] [facility], [place] [address]Sgahhuft [Moles/Vol]107 mmol/LNormal 98-107UnOhioHealth Dublin Methodist HospitalComment on above:Performed By: #### [id number] ####[facility] (BEAKER)[address] [facility], [place] [address]BL5 [Moles/Vol]26 mmol/PYmjfsr12-45UzskendwckOhioHealth Dublin Methodist HospitalComment on above:Performed By: #### [id number] ####[facility] ([facility])[address] [place] [address]Uvmoyyrnve [Mass/Vol]1.28 mg/dLHigh0.60-1.20UnOhioHealth Dublin Methodist HospitalComment on above:Performed By: #### [id number] ####[facility] ([facility])[address] [place] [address]HXNSARKGBP FILTRATION RATE ML/MIN/1.73 SQ M.AQXEOTPDA82.1 mL/min/1.73m*2Low>60.0UnOhioHealth Dublin Methodist HospitalComment on above:Result Comment: The [facility]???s estimated glomerular filtration rate (eGFR) will no [...] anyone group of individuals.Performed By: #### [id number] ####[facility] ([facility])[address] [place] [address]Jptiypt [Mass/Vol]81 mg/lAWgxstv47-668DgcnufxbutOhioHealth Dublin Methodist HospitalComment on above:Performed By: #### [id number] ####[facility] ([facility])[address] [place] [address]Xmvntzkuc [Moles/Vol]4.5 mmol/LNormal3.5-5.1UnOhioHealth Dublin Methodist HospitalComment on above:Performed By: #### [id number] ####[facility] ([facility])[address] [place] [address]Hjjzrx [Moles/Vol]139 mmol/L Xntdra932-421PddxrqtyelOhioHealth Dublin Methodist HospitalComment on above:Performed By: #### [id number] ####[facility] ([facility])[address] [place] [address]Jghv nitrogen [Mass/Vol]26 mg/dLHigh7-25UnOhioHealth Dublin Methodist HospitalComment on above:Performed By: #### [id number] ####[facility] ([facility])[address] [place] [address]MGJG NITROGEN/CREATININE (MASS RATIO) IN SER/PLAS20.3Normal [facility] - DublinComment on above:Performed By: #### [id number] ####[facility] ([facility])[address] [place] [address]GJFKMKQ, IONIZED on 36-68-6573IPXMERN IONIZED (MMOL/L) IN BLOOD1.00 mmol/LLow1.15-1.33UnOhioHealth Dublin Methodist HospitalComment on above:Performed By: #### [id number] ####[facility] RESPIRATORY [id number] [place] [address] USACBCon 08-27-2024 Erythrocyte distribution width (RBC) [Ratio]17.6 %High11.5-15.0UnOhioHealth Dublin Methodist HospitalComment on above:Performed By: #### [id number] ####[facility] ([facility])[address] [place] [address]KNPPODCNZDS MEAN CORPUSCULAR HEMOGLOBIN CONCENTRATION (G/DL) BY VETGCNCJY92.6 g/dLLow32.0-35.0 [facility] - DublinComment on above:Performed By: #### [id number] ####[facility] ([facility])[address] [place], [place] [address]Ocsevhlbkw (Bld) [Volume fraction]40.9 %Qqywkh12.0-45.0UnOhioHealth Dublin Methodist Hospital Comment on above:Performed By: #### [id number] ####[facility] ([facility])[address] [place], [place] [address]Yulhtpjucz (Bld) [Mass/Vol]12.1 g/bGLvtzcr22.0-15.0 [facility] - DublinComment on above:Performed By: #### [id number] ####[facility] ([facility])[address] [place] [address]XUU (RBC) [Entitic mass]29.7 xnMoohbh29.0-33.0UnOhioHealth Dublin Methodist HospitalComment on above:Performed By: #### [id number] ####[facility] ([facility])[address] [place] [address]QRP (RBC) [Entitic vol]100.2 xNNkyv08.0-98.0UnOhioHealth Dublin Methodist HospitalComment on above:Performed By: #### [id number] ####[facility] ([facility])[address] [place] [address]VQXRYFHBD (10*3/UL) IN BLOOD AUTOMATED CIPBD596 10*3/dHZqmjyu051-659LfrttiryesOhioHealth Dublin Methodist Hospital Comment on above:Performed By: #### [id number] ####[facility] ([facility])[address] [place] [address]UQJ (Bld) [#/Vol]4.08 10*6/uLNormal3.80-5.00 [facility] - DublinComment on above:Performed By: #### [id number] ####[facility] ([facility])[address] [place] [address]KEM (Bld) [#/Vol]7.20 10*3/uLNormal4.00-10.60UnOhioHealth Dublin Methodist HospitalComment on above:Performed By: #### [id number] ####[facility] ([facility])[address] [place] [address]ZVJWNWVww 14-92-3328CDROFEYNmuanpEthlpynoro Fort Hamilton HospitalDSon 84-15-5405IFDxejfuLgwibhwuon of [facility] Medical CenterMAGNESIUMon 10-49-0482Zrmcrofxj [Mass/Vol]3.0 mg/dLHigh1.9-2.7UnOhioHealth Dublin Methodist HospitalComment on above:Performed By: #### [id number] ####[facility] ([facility])[address] [place] [address]Bctxgd Onlyon 33-26-8764Kjcnnh Only [id number] Shayy Maynard 1945 F Date Provider Department Center 08/27/2024 [address]-EXSMLIBIA KEATING HVCVASENDUsman [place] HeartVAS No family history on fileNormalUniversKettering Health HamiltonPHOSPHORUSon 18-30-1577Irofwodww [Mass/Vol]3.9 mg/dLNormal2.5-5.0UnOhioHealth Dublin Methodist HospitalComment on above:Performed By: #### [id number] ####[facility] (BEAKER)[address] [place] [address]54hn 75-64-283757KbgfvaXkomwbwcyk Fort [facility] HospitalANESon 02-01-0554EYGDKkbucbTjeycflnrv [facility] HospitalANESNormalUniversity Fort Hamilton HospitalBASIC METABOLIC PANELon 27-95-6680Psspg gap [Moles/Vol]12 mmol/LNormal7-20UnOhioHealth Dublin Methodist HospitalComment on above:Performed By: #### [id number] ####[facility] (BEAKER)[address] [place], [place] [address]Lofbhzk [Mass/Vol]8.9 mg/dLNormal 8.6-10.3UnOhioHealth Dublin Methodist HospitalComment on above:Performed By: #### [id number] ####[facility] HOSPITAL LAB (BEAKER)[address] [place], [place] [address]Ihvtsixl [Moles/Vol]106 mmol/FCezndk56-970UbdbvidvooOhioHealth Dublin Methodist HospitalComment on above:Performed By: #### [id number] ####[facility] HOSPITAL LAB (BEAKER)[address] [place], [place] [address]AA6 [Moles/Vol]28 mmol/ONeiiur48-31PebdxlwfbpOhioHealth Dublin Methodist HospitalComment on above:Performed By: #### [id number] ####[facility] (BEAKER)[address] [place], [place] [address]Nbmjuschtd [Mass/Vol]1.27 mg/dLHigh 0.60-1.20UnOhioHealth Dublin Methodist HospitalComment on above:Performed By: #### [id number] ####[facility] ([facility])[address] [place] [address]FQZVNHVLHD FILTRATION RATE ML/MIN/1.73 SQ M.ANCMZQPNF00.5 mL/min/1.73m*2Low>60.0UnOhioHealth Dublin Methodist HospitalComment on above:Result Comment: The [facility]???s estimated glomerular filtration rate (eGFR) will no [...] group of individuals. Performed By: #### [id number] ####[facility] ([facility])[address] [place] [address]Ylszxwh [Mass/Vol]101 mg/nOJhpp36-999VmthfvppmjOhioHealth Dublin Methodist HospitalComment on above:Performed By: #### [id number] ####[facility] ([facility])[address] [place] [address]Mxzhxoxiz [Moles/Vol]4.5 mmol/LNormal 3.5-5.1UnOhioHealth Dublin Methodist HospitalComment on above:Performed By: #### [id number] ####[facility] ([facility])[address] [place] [address]Xydwff [Moles/Vol]141 mmol/LVlqtcw405-521LxmegmuzzfOhioHealth Dublin Methodist HospitalComment on above:Performed By: #### [id number] ####[facility] ([facility])[address] [place] [address]Ikvl nitrogen [Mass/Vol]25 mg/dLNormal7-25UnOhioHealth Dublin Methodist HospitalComment on above:Performed By: #### [id number] ####[facility] ([facility])[address] [place] [address]PWYI NITROGEN/CREATININE (MASS RATIO) IN SER/PLAS19.7NormalUniversKettering Health HamiltonComment on above: Performed By: #### [id number] ####[facility] ([facility])[address] [place] [address]EUFow 61-57-9387Mnfzkvnltqk distribution width (RBC) [Ratio]17.0 %High 11.5-15.0UnOhioHealth Dublin Methodist HospitalComment on above:Performed By: #### [id number] ####[facility] ([facility])[address] [place] [address] ERYTHROCYTE MEAN CORPUSCULAR HEMOGLOBIN CONCENTRATION (G/DL) BY GQWSFRGUV58.6 g/dLLow32.0-35.0UnOhioHealth Dublin Methodist HospitalComment on above:Performed By: #### [id number] ####[facility] ([facility])[address] [place] [address] Hematocrit (Bld) [Volume fraction]39.6 %Tudycc39.0-45.0UnOhioHealth Dublin Methodist HospitalComment on above:Performed By: #### [id number] ####[facility] ([facility])[address] [place] [address]Dskjfxbpde (Bld) [Mass/Vol]12.5 g/dL Gtjpto54.0-15.0UnOhioHealth Dublin Methodist HospitalComment on above:Performed By: #### [id number] ####[facility] ([facility])[address] [place] [address]JLI (RBC) [Entitic mass]29.5 yfHfphjb12.0-33.0UnOhioHealth [facility] Methodist Hospital Comment on above:Performed By: #### [id number] ####[facility] ([facility])[address] [place], [place] [address]SHZ (RBC) [Entitic vol]93.4 ySVjejvu62.0-98.0 [facility] - DublinComment on above:Performed By: #### [id number] ####[facility] ([facility])[address] [place] [address]TRVSNQCOQ (10*3/UL) IN BLOOD AUTOMATED QEPIJ683 10*3/cRIkjrqx494-220WwdypbwxjlOhioHealth Dublin Methodist HospitalComment on above:Performed By: #### [id number] ####[facility] ([facility])[address] [place] [address]UEC (Bld) [#/Vol]4.24 10*6/uLNormal 3.80-5.00UnOhioHealth Dublin Methodist HospitalComment on above:Performed By: #### [id number] ####[facility] ([facility])[address] [place] [address]MGZ (Bld) [#/Vol]10.20 10*3/uLNormal4.00-10.60UnOhioHealth Dublin Methodist HospitalComment on above:Performed By: #### [id number] ####[facility] ([facility])[address] [place] [address]LPPPOIWgn 83-94-0728DJCIGFSUadpflMchejubuli of [place] Medical CenterCT ABDOMEN PELVIS W IV CONTRASTon 39-29-9653NAH ABDOMEN PELVIS W IV CONTRASTNormalUniversity Fort Hamilton HospitalCTA CHEST W IV CONTRASTon 24-20-4887BJP CHEST W IV CONTRASTNormalUniversKettering Health HamiltonHIGH SENSITIVITY TROPONIN Ion 05-90-4224HG TROPONIN I (NG/L)18 ng/LHigh<15UnOhioHealth Dublin Methodist HospitalComment on above:Performed By: #### [id number] ####[facility] ([facility])[address] [place] [address]SLyz 41-22-5363WUJikpuh [facility] Hospital - DublinLACTIC ACID WITH 4 HOUR REFLEXon 08-26-2024 LACTATE (MMOL/L) IN SER/PLAS0.8 mmol/LNormal0.5-2.2UnOhioHealth Dublin Methodist HospitalComment on above:Performed By: #### [id number] ####[facility] ([facility])[address] [place] [address]ERSZXWEOAur 32-21-4158Utixzebhx [Mass/Vol]2.0 mg/dLNormal1.9-2.7UnOhioHealth Dublin Methodist HospitalComment on above:Performed By: #### [id number] ####[facility] ([facility])[address] [place] [address]BPCHNFRYuq 27-08-2808JSZDMNZOEjzleo was called to Milagro MELGAR. Questions answered. No further issues or concerns. Ore Dressing Engineer also called and updated the Deroy on pt room number the caustic cresylate shift superintendent nurse and current status of the pt. He verbalized understanding [facility] HospitalNURSNOTEPREOPERATIVE DOPPLERS BOTH PT AND DP MARKED AND DOPPLERABLE IN BILATERAL FEET.[facility] HospitalNURSNOTEPt was given call light and family brought to bedside. RN called anesthesia about high bp will be around soon.[facility] NURSNOTEPt stated her knew the meds she took, rn spoke to who was unsure about when the last time she took some of her meds was. Knows she didn't take any today and hasn't had the blood thinner in 2 days.[facility] HospitalNURSNOTEPCT took pt to restroom then wheeled her to bay 5. Pt was instructed to remove all belongings and put gown on.NormalSelect Medical OhioHealth Rehabilitation Hospital - DublinOPNOTEon 92-68-8881IRYBGVKslvjlEfjnbqabdi Fort Hamilton HospitalPOCT GLUCOSE METER UNSOLICITED RESULTSon 47-11-2907Vrlbmqo [Mass/Vol]96 mg/uENnintn65-086BigyybgwxuOhioHealth Dublin Methodist HospitalComment on above:Order Comment: Waived Testing in the ED is performed under the ED CLIA certificate #[id number].Result Comment: [email or web address] Performed By: #### [id number] ####[facility] ([facility])[address] VAZQUEZHERITAGE VALLEY HEALTH SYSTEMUsmanPARKERSBUR[place], [place] [address]UIYNTSC-TGHck 49-13-0360NXT IN PPP BY COAGULATION ASSAY1.01 Normal0.90-1.10UnOhioHealth Dublin Methodist HospitalComment on above:Result Comment: ACC[facility] RECOMMENDED INR FOR WARFARIN THERAPY CONDITION INRPROPHYLAXIS OF VENOUS THROMBOSIS 2-3(HIGH-RISK SURGERY)TREATMENT OF VENOUS THROMBOSIS 2-3TREATMENT OF PULMONARY EMBOLISM 2-3PREVENTION OF SYSTEMIC EMBOLISM: 2-3 ACUTE MYOCARDIAL INFARCTION TISSUE HEART VALVES VALVULAR HEART DISEASE ATRIAL FIBRILLATION RECURRENT SYSTEMIC EMBOLISMMECHANICAL HEART VALVE 2.5-3.5 FROM: ORAL ANTICOAGULANTS. MECHANISM OF ACTION, CLINICAL EFFECTIVENESS, AND OPTIMAL THERAPE UTIC RANGE. CHEST 1995;108:231S-246S.Performed By: #### [id number] ####[facility] ([facility])[address] [place], [place] [address]FLSXNVTBINO TIME (PT) IN PPP BY COAGULATION ASSAY13.3 OhvclmqAcckfi49.3-14.8UnOhioHealth Dublin Methodist HospitalComment on above:Performed By: #### [id number] ####[facility] ([facility])[address] [place], [place] [address]HCZB AND SCREENon 91-07-8936VK SCREEN NegativeNormalUniversuniversity hospitals geauga medical [facility] of St[facility] The Woodlands HospitalComment on above:Performed By: #### [id number] ####[facility] BLOOD BANK,ABO group Nom (Bld)ONormalUnOhioHealth Dublin Methodist HospitalComment on above:Performed By: #### [id number] ####[facility] BLOOD BANK,RH TYPE IN BLOODPositiveNormalUniversity of St. Luke'S Health – The Woodlands HospitalCommunson healthcare [facility] on above: Performed By: #### [id number] ####[facility] BLOOD BANK,Orders Onlyon 10-57-3893Tealbh [id number] Shayy Maynard 1945 Date Provider Department [place] 08/23/2024 [id number]-POMTHBRIANNA GARCIA [facility] [place] [facility] No family history on fileNormalUniversity of St. Luke'S Health – The Woodlands HospitalOrders Onlyon 04-76-0889Iqmzos [id number] Earnest Maynarda A 1945 F Date Provider Department Center 08/18/2024 [facility] No family history on fileNormalUniversity of St. Luke'S Health – The Woodlands HospitalUrine Culture on 04-80-3126Xgwubufe identified Cx Nom (U)<9,000 colonies/ml mixed bacterial skin contaminants 2 Days PERFORMED BY: [address] [place] [address] PATHOLOGIST LINE OUT WORKER ISAI DASH M.D.[facility] City Physician GroupComment on above: Performed By: #### CUU #### [place] [address] PZH21em 51-73-875066Yrpwcr and left a message for patient to call the office to scheduleNormalUniversity of St. [facility] Hospital Documentationon [id number] Jay Maynardtta A 1945 F Date Provider Department Center 08/05/2024 [id number]-JMYIOFLJAIME DOSHI [facility] HeartVAS No family history on fileNormalUniversity of St. Luke'S Health – The Woodlands HospitalFollow-Upon 30-19-0745Nvaccw-UpNormalUniversity of St. Luke'S Health – The Woodlands HospitalOrders Onlyon 32-39-0609Cwjoyz [id number] Alex,Shayy A 1945 F Date Provider Department Center 08/02/2024 92Domonique-VIKTOR RUCKER CARD [facility] No family history on fileNormalUniversity of St. Luke'S Health – [facility] Woodlands HospitalOrders Onlyon 27-14-7086Capvpp [id number] Jay Maynardtta A 1945 F Date Provider Department Center 07/27/2024 Z6348-HKAKCQOY, VINCE CARD [facility] No family history on fileNormalUniversity of St. Luke'S Health – The Woodlands HospitalALTon 13-84-0730JTB [Catalytic activity/Vol]10 U/LNormal7-52UnOhioHealth Dublin Methodist HospitalComment on above:Performed By: #### [id number] ####[facility] ([facility])[address] [place] [address]AOLsh 01-83-1949QYZ [Catalytic activity/Vol]14 U/EXabrzp73-27UjhsxasjkhOhioHealth Dublin Methodist HospitalComment on above:Performed By: #### [id number] ####[facility] ([facility])[address] [place] [address]JKPHZUAVIU, SERUMon 05-56-8353Peufdabrsn [Mass/Vol]1.15 mg/dL Normal0.60-1.20UnOhioHealth Dublin Methodist HospitalComment on above:Performed By: #### [id number] ####[facility] ([facility])[address] [place] [address] GLOMERULAR FILTRATION RATE ML/MIN/1.73 SQ M.PTTHMRDWN58.9 mL/min/1.73m*2Low>60.0 [facility] - DublinComment on above:Result Comment: The [facility]???s estimated glomerular filtration rate (eG FR) will [...] anyone group of individuals. Performed By: #### [id number] ####[facility] ([facility])[address] [place], [place] [address]KPO ABDOMEN PELVIS W IV CONTRASTon 95-09-4918XGU ABDOMEN PELVIS W IV CONTRASTInvalid Interpretation CodeUnOhioHealth Dublin Methodist HospitalLIPID PANELon 78-07-3915REVI/HDL4.8 mg/dLNormalUniversKettering Health HamiltonComment on above:Performed By: #### [id number] ####[facility] ([facility])[address] [place], [place] [address]Mfazvaqgjzg [Mass/Vol]217 mg/dLHigh 120-200UnOhioHealth Dublin Methodist HospitalComment on above:Performed By: #### [id number] ####[facility] ([facility])[address] [place], [place] [address]Iydkuvvms [Mass/Vol]170 mg/dLHigh<150UnOhioHealth Dublin Methodist HospitalComment on above: Result Comment: TRIGLYCERIDE REFERENCE RANGE:20 YEARS AND OLDER CARDIOVASCULAR RISKLESS THAN 150 mg/dL LOW BEQJ564 TO 199 mg/dL BORDERLINE MKYF880 mg/dL AND GREATER HIGH RISKPerformed By: #### [id number] ####[facility] ([facility])[address] [place], [place] [address]Qzxeshykx [Mass/Vol]138 mg/dLNormal0-160UnOhioHealth Dublin Methodist HospitalComment on above:Performed By: #### [id number] ####[facility] ([facility])[address] [place], [place] [address]Pxpwgsdei [Mass/Vol]45 mg/lHZekszl49-35UmutzquzzsOhioHealth Dublin Methodist HospitalComment on above:Performed By: #### [id number] ####[facility] ([facility])[address] [place] [address] NON HDL CHOL. (LDL+VLDL)172NoNovant Health Charlotte Orthopaedic HospitalniSalem Regional Medical CenterComment on above:Performed By: #### [id number] ####[facility] ([facility])[address] [place], [place] [address]UAGCD VLDL-C34 mg/dLNormal0-40UnOhioHealth Dublin Methodist HospitalComment on above:Performed By: #### [id number] ####[facility] ([facility])[address] [place], [place] [address]Zbicq [id number] Shayy Maynard 1945 F Date Provider Department Center 07/22/2024 2245-[facility] LAB RESOURCE [facility] C No family history on fileNormalUniSalem Regional Medical Center36on [id number] message for pt to return call to schedule [address] Whitten.NormalUnOhioHealth Dublin Methodist Hospital37on [id number] call radiology at [phone] to schedule testing (CTA abdomen and pelvis) to be done before your next appointmentNormalUniversity Fort Hamilton HospitalFollow-Upon 37-55-4084Hmjuby-UpNormalUniversity Fort Hamilton HospitalBASIC METABOLIC PANELon 69-34-2582Onbmx gap [Moles/Vol]14 mmol/LNormal7-20 [facility] - DublinComment on above:Performed By: #### [id number] ####[facility] ([facility])[address] [place], [place] [address]Agogtvv [Mass/Vol]9.1 mg/dLNormal8.6-10.3UnOhioHealth Dublin Methodist HospitalComment on above:Performed By: #### [id number] ####[facility] ([facility])[address] [place], [place] [address]Nqoqtkfl [Moles/Vol]105 mmol/ITbuuhj82-886DwtjdqzqrhOhioHealth Dublin Methodist HospitalComment on above:Performed By: #### [id number] ####[facility] ([facility])[address] [place], [place] [address]AC5 [Moles/Vol]27 mmol/LNormal 21-31UnOhioHealth Dublin Methodist HospitalComment on above:Performed By: #### [id number] ####[facility] ([facility])[address] [place], [place] [address]Joeasfhchx [Mass/Vol]1.32 mg/dLHigh0.60-1.20UnOhioHealth Dublin Methodist HospitalComment on above:Performed By: #### [id number] ####[facility] ([facility])[address] [place], [place] [address]ZNMGJRYCIR FILTRATION RATE ML/MIN/1.73 SQ M.DJBBYYTLX90.8 mL/min/1.73m*2Low>60.0UnOhioHealth Dublin Methodist HospitalComment on above:Result Comment: The [facility]???s estimated glomerular filtration rate (eGFR) will no [...] anyone group of individuals.Performed By: #### [id number] ####[facility] ([facility])[address] [place], [place] [address]Grnjipp [Mass/Vol]94 mg/sMHvwnro29-843FhtcpfrbtaOhioHealth Dublin Methodist HospitalComment on above:Performed By: #### [id number] ####[facility] ([facility])[address] [place], [place] [address]Ntfqttmfd [Moles/Vol]3.8 mmol/LNormal3.5-5.1UnOhioHealth Dublin Methodist HospitalComment on above:Performed By: #### [id number] ####[facility] ([facility])[address] [place] [address] Sodium [Moles/Vol]142 mmol/ZWowxky055-495AcwksfplzgOhioHealth Dublin Methodist Hospital Comment on above:Performed By: #### [id number] ####[facility] ([facility])[address] [place], [place] [address]Yixa nitrogen [Mass/Vol]28 mg/dLHigh7-25UnOhioHealth Dublin Methodist HospitalComment on above:Performed By: #### [id number] ####[facility] ([facility])[address] [place], [place] [address]OPZM NITROGEN/CREATININE (MASS RATIO) IN SER/PLAS21.2NormalUnOhioHealth Dublin Methodist HospitalComment on above:Performed By: #### [id number] ####[facility] ([facility])[address] [place], [place] [address]RHBkh 30-24-0984Laginhzomte distribution width (RBC) [Ratio] 16.2 %High11.5-15.0UnOhioHealth Dublin Methodist HospitalComment on above:Performed By: #### [id number] ####[facility] ([facility])[address] [place] [address]WCVQZMZCIVP MEAN CORPUSCULAR HEMOGLOBIN CONCENTRATION (G/DL) BY AUTOMATED 30.9 g/dLLow32.0-35.0UnOhioHealth Dublin Methodist HospitalComment on above: Performed By: #### [id number] ####[facility] ([facility])[address] [place] [address]Mprrljfpva (Bld) [Volume fraction]34.3 %Low36.0-45.0 [facility] - DublinComment on above:Performed By: #### [id number] ####[facility] ([facility])[address] [place], [place] [address]Sxonatnjfp (Bld) [Mass/Vol]10.6 g/dLLow12.0-15.0UnOhioHealth Dublin Methodist HospitalComment on above:Performed By: #### [id number] ####[facility] ([facility])[address] [place] [address]MEW (RBC) [Entitic mass]28.4 ttPgacga09.0-33.0UnOhioHealth Dublin Methodist HospitalComment on above:Performed By: #### [id number] ####[facility] ([facility])[address] [place] [address]MDC (RBC) [Entitic vol] 92.0 pLWcbbms45.0-98.0UnOhioHealth Dublin Methodist HospitalComment on above: Performed By: #### [id number] ####[facility] ([facility])[address] [place] [address]KISHGTYQQ (10*3/UL) IN BLOOD AUTOMATED [id number] 10*3/uLNormal 150-400UnOhioHealth Dublin Methodist HospitalComment on above:Performed By: #### [id number] ####[facility] ([facility])[address] [place] [address]NDX (Bld) [#/Vol]3.73 10*6/uLLow3.80-5.00UnOhioHealth Dublin Methodist HospitalComment on above:Performed By: #### [id number] ####[facility] ([facility])[address] [place] [address]HAY (Bld) [#/Vol]8.95 10*3/uLNormal4.00-10.60UnOhioHealth Dublin Methodist HospitalComment on above:Performed By: #### [id number] ####[facility] ([facility])[address] [place] [address]GLPZGHLYJE, URINE, RANDOM on 06-52-3750Adbjjnyhkv (U) [Mass/Vol]115.0 mg/fDLkqbkm86-623HkwbpmcixhOhioHealth Dublin Methodist HospitalComment on above:Performed By: #### [id number] ####[facility] ([facility])[address] [place] [address]Ysbfsoydx By: #### [id number] ####[facility] ([facility])[address] [place] [address]Yxgrpm-Tsel 58-98-6853Jsjyce-UpNormalUniversKettering Health HamiltonLabon 55-66-5532Arg [id number] Shayy Maynard 1945 F Date Provider Department [place] 05/11/20242241-[facility] RES[facility] Comprehensiv No family history on fileNormalUniSalem Regional Medical CenterMICROALBUMIN, URINE, RANDOMon 02-66-8377Sweeztk DL <= 20 mg/L (U) [Mass/Vol]1.8 mg/dLNormal [facility] - DublinComment on above:Performed By: #### [id number] ####[facility] ([facility])[address] [place] [address] MICROALBUMIN/CREATININE (MG/G) IN URINE15.7 mg/g CreatNormal0.0-30.0UnOhioHealth Dublin Methodist HospitalComment on above:Performed By: #### [id number] ####[facility] ([facility])[address] [place] [address]WYYFUJM, URINE, RANDOMon 70-41-2293Ykouhvq (U) [Mass/Vol]30.2 mg/dLNoalUniSalem Regional Medical CenterComment on above:Result Comment: There are no established reference values for random urine specimens.Performed By: #### [id number] ####[facility] ([facility])[address] [place], [place] [address]GYHMDNAUNGyf 13-83-1367LCFAAYTBZ, TOTAL PRESENCE IN URINENegativeNormalNegativeSelect Medical [facility] Hospital - Dublin Comment on above:Performed By: #### [id number] ####[facility] ([facility])[address] [place], [place] [address]Lxfuzwg (U)ClearNormalClearSelect Medical OhioHealth Rehabilitation Hospital - DublinComment on above:Performed By: #### [id number] ####[facility] ([facility])[address] [place], [place] [address]Covfi (U)Light-YellowNormalColorless, Yellow, Light-YellowUnOhioHealth Dublin Methodist HospitalComment on above: Performed By: #### [id number] ####[facility] ([facility])[address] [place], [place] [address]VTUOUHU (MG/DL) IN URINENormalMagruder HospitalComment on above:Performed By: #### [id number] ####[facility] ([facility])[address] [place], [place] [address]UJLJAMTGBE PRESENCE IN URINENegativeNoecu health roanoke-chowan hospitalNegJ.W. Ruby Memorial HospitalComment on above: Performed By: #### [id number] ####[facility] ([facility])[address] [place], [place] [address]Oiqjbds Ql (U)NegativeNormalNegativeSelect Medical OhioHealth Rehabilitation Hospital - DublinComment on above:Performed By: #### [id number] ####[facility] ([facility])[address] [place], [place] [address]ETOGVVIHM ESTERASE PRESENCE IN URINE BY TEST STRIPSmallAbnormalNegJ.W. Ruby Memorial HospitalComment on above:Performed By: #### [id number] ####[facility] ([facility])[address] [place], [place] [address]GHVXBRF PRESENCE IN URINENegativeNormalNegativeUnOhioHealth Dublin Methodist HospitalComment on above:Performed By: #### [id number] ####[facility] ([facility])[address] [place], [place] [address]wL (U)5.5 [pH]Normal 5.0-8.0UnOhioHealth Dublin Methodist HospitalComment on above:Performed By: #### [id number] ####[facility] ([facility])[address] [place], [place] [address]Tdsxozx (U) [Mass/Vol]NegativeNormalNegativeUnOhioHealth Dublin Methodist HospitalComment on above:Performed By: #### [id number] ####[facility] ([facility])[address] [place], [place] [address]Ajtirfzk gravity (U) [Rel density]1.134Byizve8.010-1.030 [facility] - DublinComment on above:Performed By: #### [id number] ####[facility] ([facility])[address] [place], [place] [address]WEKAFBKPKQIY (MG/DL) IN URINENormalNormalNormalUniversKettering Health HamiltonComment on above:Performed By: #### [id number] ####[facility] ([facility])[address] [place], [place] [address]JXSNVGSCSK MICROSCOPICon 59-44-6722FEB (#/HPF) IN URINE SEDIMENT0-2NormalNone Seen, 0-2UnOhioHealth Dublin Methodist HospitalComment on above:Performed By: #### [id number] ####[facility] ([facility])[address] [place], [place] [address]BIIHZKYT EPITHELIAL CELLS (#/LPF) IN URINE SEDIMENTFewNormal None Seen, Occasional, FewUnOhioHealth Dublin Methodist HospitalComment on above: Performed By: #### [id number] ####[facility] ([facility])[address] [place], [place] [address]XHW (LEUKOCYTE) (#/HPF) IN URINE SEDIMENT3-5AbnormalNone Seen, 0-2UnOhioHealth Dublin Methodist HospitalComment on above:Performed By: #### [id number] ####[facility] ([facility])[address] [place], [place] [address]-Fgbwkb call radiology at [phone] to schedule ultrasound testing. Can be scheduled same day as follow up appointmentsNormalUniversity Fort Hamilton HospitalFollow-Upon 07-97-7596Yjhxgk-UpNormalUniversity Fort Hamilton Hospital Follow-Upon 77-60-7868Qhneyn-UpNormalUniversity Fort Hamilton Hospital36on 11-51-352290BohsvlLkacjkvaaj of [place] Medical CenterOrders Onlyon 02-19-2024 Orders [id number] Shayy Maynard 1945 F Date Provider Department Center 02/19/2024 [facility] No family history on fileNormalUniversKettering Health HamiltonDocumentation on 70-94-7495UdjflrvsqbfiyGqlkvfMqgorfglxn [facility]30on 80-08-330639CcxaoeSjtwghwmtg [facility]30NormalUniversKettering Health HamiltonBASIC METABOLIC PANELon 72-07-3635Vrfjv gap [Moles/Vol]9 mmol/LNormal7-20UnOhioHealth Dublin Methodist HospitalComment on above:Performed By: #### [id number] ####[facility] ([facility])[address] [place] [address] Calcium [Mass/Vol]8.3 mg/dLLow8.6-10.3UnOhioHealth Dublin Methodist HospitalComment on above:Performed By: #### [id number] ####[facility] ([facility])[address] [place], [place] [address]Kgqtetwm [Moles/Vol]107 mmol/ZWzwbyk79-070UfkphtxpufOhioHealth Dublin Methodist HospitalComment on above:Performed By: #### [id number] ####[facility] ([facility])[address] [place] [address]HE3 [Moles/Vol]29 mmol/LNormal 21-31UnOhioHealth Dublin Methodist HospitalComment on above:Performed By: #### [id number] ####[facility] ([facility])[address] [place] [address]Niigykotxs [Mass/Vol]1.70 mg/dLHigh0.60-1.20UnOhioHealth Dublin Methodist HospitalComment on above:Performed By: #### [id number] ####[facility] ([facility])[address] [place] [address]LUELAROTNS FILTRATION RATE ML/MIN/1.73 SQ M.JKVMMSBHA71.1 mL/min/1.73m*2Low>60.0UnOhioHealth Dublin Methodist HospitalComment on above:Result Comment: The [facility]???s estimated glomerular filtration rate (eGFR) will no [...] anyone group of individuals.Performed By: #### [id number] ####[facility] ([facility])[address] [place] [address]Xpioano [Mass/Vol]85 mg/wNOskmnk16-135XpuuvuavxnOhioHealth Dublin Methodist HospitalComment on above:Performed By: #### [id number] ####[facility] ([facility])[address] [place] [address]Flcsmptkj [Moles/Vol]4.6 mmol/LNormal3.5-5.1UnOhioHealth Dublin Methodist HospitalComment on above:Performed By: #### [id number] ####[facility] ([facility])[address] [place] [address] Sodium [Moles/Vol]140 mmol/USqcljr313-142XlguwtdaoxOhioHealth Dublin Methodist Hospital Comment on above:Performed By: #### [id number] ####[facility] ([facility])[address] [place] [address]Ptef nitrogen [Mass/Vol]21 mg/dLNormal7-25 [facility] - DublinComment on above:Performed By: #### [id number] ####[facility] ([facility])[address] [place], [place] [address]HZWG NITROGEN/CREATININE (MASS RATIO) IN SER/PLAS12.4NormalUniversKettering Health HamiltonComment on above:Performed By: #### [id number] ####[facility] ([facility])[address] [place] [address]KPI WITH AUTO DIFFERENTIALon 50-46-3964Hxjrriyzjue distribution width (RBC) [Ratio]16.7 %High11.5-15.0 [facility] - DublinComment on above:Performed By: #### [id number] ####[facility] ([facility])[address] [place], [place] [address]ZGOUHXSDZYQ MEAN CORPUSCULAR HEMOGLOBIN CONCENTRATION (G/DL) BY QDJDEBXRO82.1 g/dLLow32.0-35.0 [facility] - DublinComment on above:Performed By: #### [id number] ####[facility] ([facility])[address] [place], [place] [address]Zbspokywcl (Bld) [Volume fraction]27.9 %Low36.0-48.0UnOhioHealth Dublin Methodist HospitalComment on above:Performed By: #### [id number] ####[facility] ([facility])[address] [place], [place] [address]Knbpozqens (Bld) [Mass/Vol]8.4 g/dLLow12.0-15.0UnOhioHealth Dublin Methodist HospitalComment on above:Performed By: #### [id number] ####[facility] ([facility])[address] [place], [place] [address]VUD (RBC) [Entitic mass] 27.5 anQkmwnw30.0-33.0UnOhioHealth Dublin Methodist HospitalComment on above: Performed By: #### [id number] ####[facility] ([facility])[address] [place] [address]QVW (RBC) [Entitic vol]91.5 vIVyipem33.0-98.0UnOhioHealth Dublin Methodist HospitalComment on above:Performed By: #### [id number] ####[facility] ([facility])[address] [place] [address]GAYQ (PER 100 WBCS) BY AUTOMATED COUNT0.0 %Cxaoom7HmwakealceOhioHealth Dublin Methodist HospitalComment on above: Performed By: #### [id number] ####[facility] ([facility])[address] [place] [address]MIFSIMYDC (10*3/UL) IN BLOOD AUTOMATED [id number] 10*3/uLNormal 150-400UnOhioHealth Dublin Methodist HospitalComment on above:Performed By: #### [id number] ####[facility] ([facility])[address] [place] [address]KAA (Bld) [#/Vol]3.05 10*6/uLLow3.80-5.00UnOhioHealth Dublin Methodist HospitalComment on above:Performed By: #### [id number] ####[facility] ([facility])[address] [place] [address]IGM (Bld) [#/Vol]5.28 10*3/uLNormal4.00-10.60UnOhioHealth Dublin Methodist HospitalComment on above:Performed By: #### [id number] ####[facility] ([facility])[address] [place] [address]NTuj 65-35-7229LMEagdbq [facility] - DublinMAGNESIUMon 88-26-0469Tjvuaekmn [Mass/Vol]1.9 mg/dLNormal1.9-2.7UnOhioHealth Dublin Methodist HospitalComment on above:Performed By: #### [id number] ####[facility] ([facility])[address] [place] [address]PATABH DIFFERENTIALon 79-21-9442BCDVCWIWX (10*3/UL) IN BLOOD BY CALCULATION 0.00 10*3/uLNormal0.00-0.20UnOhioHealth Dublin Methodist HospitalComment on above: Performed By: #### [id number] ####[facility] ([facility])[address] [place], [place] [address]CZOUMZNFO/100 LEUKOCYTES IN BLOOD BY AUTOMATED COUNT0.0 % Normal0.0-1.0UnOhioHealth Dublin Methodist HospitalComment on above:Performed By: #### [id number] ####[facility] ([facility])[address] [place] [address] EOSINOPHILS (10*3/UL) IN BLOOD BY CALCULATION0.21 10*3/uLNormal0.00-0.50 [facility] - DublinComment on above:Performed By: #### [id number] ####[facility] ([facility])[address] [facility] [place] [address]TMVLNYKWMBR/100 LEUKOCYTES IN BLOOD BY AUTOMATED COUNT4.0 %Normal0.0-6.0UnOhioHealth Dublin Methodist HospitalComment on above:Performed By: #### [id number] ####[facility] ([facility])[address] [place], [place] [address]FBDVPRYTXCJ (10*3/UL) IN BLOOD BY CALCULATION0.81 10*3/uLLow1.20-4.00UnOhioHealth Dublin Methodist HospitalComment on above:Performed By: #### [id number] ####[facility] ([facility])[address] [facility] [place] [address]FSHLBWWOSRW/100 LEUKOCYTES IN BLOOD BY AUTOMATED COUNT15.4 % Low20.0-45.0UnOhioHealth Dublin Methodist HospitalComment on above:Performed By: #### [id number] ####[facility])[address] [place] [address] METAMYELOCYTES (10*3/UL) IN BLOOD BY CALCULATION0.04 10*3/uLHigh0.00UnOhioHealth Dublin Methodist HospitalComment on above:Performed By: #### [id number] ####[facility] ([facility])[address] [place], [place] [address]QZDIBTFXANHUSI/100 LEUKOCYTES IN BLOOD CELLAVISION0.7 %High0.0-0.0UnOhioHealth Dublin Methodist HospitalComment on above:Performed By: #### [id number] ####[facility] ([facility])[address] [place], [place] [address]FYKQNQBSF (10*3/UL) IN BLOOD BY CALCUATION0.25 10*3/uLNormal0.10-1.00UnOhioHealth Dublin Methodist HospitalComment on above:Performed By: #### [id number] ####[facility] ([facility])[address] [place], [place] [address]RNLYMGJLY/100 LEUKOCYTES IN BLOOD BY AUTOMATED COUNT4.7 %Low 5.0-12.0UnOhioHealth Dublin Methodist HospitalComment on above:Performed By: #### [id number] ####[facility] ([facility])[address] [place] [address] MYELOCYTES (10*3/UL) IN BLOOD BY CALCULATION0.04 10*3/uLHigh0.00UnOhioHealth Dublin Methodist HospitalComment on above:Performed By: #### [id number] ####[facility] ([facility])[address] [place], [place] [address]PKLDCDSBRX/100 LEUKOCYTES IN BLOOD CELLAVISION0.7 %High0.0-0.0UnOhioHealth Dublin Methodist HospitalComment on above:Performed By: #### [id number] ####[facility] ([facility])[address] [place], [place] [address]RYHYWDAVVJQ (10*3/UL) IN BLOOD BY CALCULATION3.9 10*3/uL Normal1.6-7.6UnOhioHealth Dublin Methodist HospitalComment on above:Performed By: #### [id number] ####[facility] ([facility])[address] [place] [address] NEUTROPHILS/100 LEUKOCYTES IN BLOOD BY AUTOMATED COUNT74.5 %High40.0-72.0 [facility] - DublinComment on above:Performed By: #### [id number] ####[facility] ([facility])[address] [place], [place] [address]VQZEFU CELLS/100 LEUKOCYTES IN BLOOD0 %Pawnko8WyecubencvOhioHealth Dublin Methodist HospitalComment on above:Performed By: #### [id number] ####[facility] ([facility])[address] [place], [place] [address]ENMOCZVYD GIANT PRESENCE IN BLOOD BY LIGHT MICROSCOPYPresent NormalUnOhioHealth Dublin Methodist HospitalComment on above:Performed By: #### [id number] ####[facility] ([facility])[address] [place], [place] [address]ULKWXY CELLS/100 LEUKOCYTES IN BLOOD CELLAVISIONPresentNormalUniversKettering Health HamiltonComment on above:Performed By: #### [id number] ####[facility] ([facility])[address] [place], [place] [address]NORYVPT LYMPHOCYTES (10*3/UL) IN BLOOD BY CALCULATION0.00 10*3/uLNormal0.00UnOhioHealth Dublin Methodist HospitalComment on above:Performed By: #### [id number] ####[facility] ([facility])[address] [place], [place] [address]XJSKSGT LYMPHOCYTES/100 LEUKOCYTES IN BLOOD CELLAVISION0.0 % Normal0.0-0.0UnOhioHealth Dublin Methodist HospitalComment on above:Performed By: #### [id number] ####[facility] ([facility])[address] [place] [address] NURSNOTEon [id number] of [facility] Medical CenterPOCT GLUCOSE METER UNSOLICITED RESULTSon [id number] [Mass/Vol]103 mg/dLNormal 70-105UnOhioHealth Dublin Methodist HospitalComment on above:Order Comment: Waived Testing in the ED is performed under the ED CLIA certificate #[id number].Result Comment: [id number] By: #### [id number] ####[facility] ([facility])[address] [place], [place] [address]bp [id number] [facility]30NormalUniversity of [facility]30The patient is Moderately Stable - Low risk of patient condition declining or worsening The patient's goals for the shift include Comfort The clinical goals for the shift include VSS, safetyNormalUniversity of St. Luke'[facility] Health [facility] HospitalTxuwup43InfwgdOwfeyxtegf [facility] HospitalBASIC METABOLIC PANELon [id number] gap [Moles/Vol]14 mmol/LNormal7-20UnOhioHealth Dublin Methodist HospitalComment on above:Performed By: #### [id number] ####[facility] ([facility])[address] [place], [place] [address]Yimzcdv [Mass/Vol]8.0 mg/dLLow8.6-10.3 [facility] - DublinComment on above:Performed By: #### [id number] ####[facility] ([facility])[address] [place], [place] [address]Pcxhjpfb [Moles/Vol]105 mmol/EUzhssz65-886RlakkqzqxtOhioHealth Dublin Methodist HospitalComment on above:Performed By: #### [id number] ####[facility] ([facility])[address] [place], [place] [address]AS5 [Moles/Vol]26 mmol/OKonlca85-74QbxvpfjiwpOhioHealth Dublin Methodist HospitalComment on above:Performed By: #### [id number] ####[facility] ([facility])[address] [place], [place] [address]Lroyjxquab [Mass/Vol]1.99 mg/dLHigh 0.60-1.20UnOhioHealth Dublin Methodist HospitalComment on above:Performed By: #### [id number] ####[facility] ([facility])[address] [place], [place] [address]LYSICKWQXC FILTRATION RATE ML/MIN/1.73 SQ M.ABQOLIINE92.9 mL/min/1.73m*2Low>60.0UnOhioHealth Dublin Methodist HospitalComment on above:Result Comment: The [facility]???s estimated glomerular filtration rate (eGFR) will no [...] group of individuals. Performed By: #### [id number] ####[facility] ([facility])[address] [facility], [place] [address]Eaanwrd [Mass/Vol]80 mg/uTMzctwr28-573BtyxghrkhzOhioHealth Dublin Methodist HospitalComment on above:Performed By: #### [id number] ####[facility] ([facility])[address] [place], [place] [address]Puvbziupe [Moles/Vol]4.5 mmol/LNormal 3.5-5.1UnOhioHealth Dublin Methodist HospitalComment on above:Performed By: #### [id number] ####[facility] ([facility])[address] [place], [place] [address]Laoffy [Moles/Vol]140 mmol/XRpjvur458-042BpygqteitqOhioHealth Dublin Methodist HospitalComment on above:Performed By: #### [id number] ####[facility] ([facility])[address] [place], [place] [address]Thui nitrogen [Mass/Vol]28 mg/dLHigh7-25UnOhioHealth Dublin Methodist HospitalComment on above:Performed By: #### [id number] ####[facility] ([facility])[address] [place], [place] [address]RDYM NITROGEN/CREATININE (MASS RATIO) IN SER/PLAS14.1NormalUnOhioHealth Dublin Methodist HospitalComment on above: Performed By: #### [id number] ####[facility] ([facility])[address] [place], [place] [address]IEL WITH AUTO DIFFERENTIALon 50-10-0308Tgcvtzvixau distribution width (RBC) [Ratio]17.1 %High11.5-15.0UnOhioHealth Dublin Methodist HospitalComment on above:Performed By: #### [id number] ####[facility] ([facility])[address] [place], [place] [address]YXBOJYJUFRU MEAN CORPUSCULAR HEMOGLOBIN CONCENTRATION (G/DL) BY NYPYPTKVF95.6 g/dLLow32.0-35.0UnOhioHealth Dublin Methodist HospitalComment on above:Performed By: #### [id number] ####[facility] ([facility])[address] [place] [address]Mxwtphevyz (Bld) [Volume fraction]29.0 %Low36.0-48.0 [facility] - DublinComment on above:Performed By: #### [id number] ####[facility] ([facility])[address] [place], [place] [address]Wdlwoydgoc (Bld) [Mass/Vol]8.3 g/dLLow12.0-15.0UnOhioHealth Dublin Methodist HospitalComment on above:Performed By: #### [id number] ####[facility] ([facility])[address] [place], [place] [address]ORFNWWNG PLATELET FRACTION %1.5 %Normal0.8-6.3UnOhioHealth Dublin Methodist HospitalComment on above:Performed By: #### [id number] ####[facility] ([facility])[address] [place], [place] [address]TQJ (RBC) [Entitic mass] 27.8 vwMtdxsz16.0-33.0UnOhioHealth Dublin Methodist HospitalComment on above: Performed By: #### [id number] ####[facility] ([facility])[address] [place], [place] [address]UZI (RBC) [Entitic vol]97.0 eDEmuqgv28.0-98.0UnOhioHealth Dublin Methodist HospitalComment on above:Performed By: #### [id number] ####[facility] ([facility])[address] [place], [place] [address]UJDB (PER 100 WBCS) BY AUTOMATED COUNT0.0 %Hqroti3EebtgwctwlOhioHealth Dublin Methodist HospitalComment on above: Performed By: #### [id number] ####[facility] ([facility])[address] [place] [address]XZPQAOPVY (10*3/UL) IN BLOOD AUTOMATED [id number] 10*3/uLNormal 150-400UnOhioHealth Dublin Methodist HospitalComment on above:Performed By: #### [id number] ####[facility] ([facility])[address] [place] [address]QHV (Bld) [#/Vol]2.99 10*6/uLLow3.80-5.00UnOhioHealth Dublin Methodist HospitalComment on above:Performed By: #### [id number] ####[facility] ([facility])[address] [place] [address]EZY (Bld) [#/Vol]7.00 10*3/uLNormal4.00-10.60UnOhioHealth Dublin Methodist HospitalComment on above:Performed By: #### [id number] ####[facility] ([facility])[address] [place] [address]HFKYGOOEPgq 02-11-2024 Magnesium [Mass/Vol]2.2 mg/dLNormal1.9-2.7UnOhioHealth [facility] Comment on above:Performed By: #### [id number] ####[facility] ([facility])[address] [place] [address]YNZPDN DIFFERENTIALon 69-49-4094RXIBNDGSDNEN PRESENCE IN BLOOD BY LIGHT MICROSCOPYSlightNormalUniversKettering Health HamiltonComment on above:Performed By: #### [id number] ####[facility] ([facility])[address] [place] [address]DOMKIYTSM (10*3/UL) IN BLOOD BY CALCULATION0.07 10*3/uLNormal0.00-0.20UnOhioHealth Dublin Methodist HospitalComment on above:Performed By: #### [id number] ####[facility] ([facility])[address] [place] [address]BSIRXQDKC/100 LEUKOCYTES IN BLOOD BY AUTOMATED COUNT1.0 %Normal0.0-1.0UnOhioHealth Dublin Methodist HospitalComment on above: Performed By: #### [id number] ####[facility] ([facility])[address] [place], [place] [address]JNUMNQINRZA (10*3/UL) IN BLOOD BY CALCULATION0.27 10*3/uL Normal0.00-0.50UnOhioHealth Dublin Methodist HospitalComment on above:Performed By: #### [id number] ####[facility] ([facility])[address] [place] [address] EOSINOPHILS/100 LEUKOCYTES IN BLOOD BY AUTOMATED COUNT3.9 %Normal0.0-6.0 [facility] - DublinComment on above:Performed By: #### [id number] ####[facility] ([facility])[address] [place], [place] [address]GGJTWYGC GRANULOCYTES (10*3/UL) IN BLOOD BY CALCULATION0.34 10*3/uLHigh0.00-0.20 [facility] - DublinComment on above:Performed By: #### [id number] ####[facility] ([facility])[address] [place], [place] [address]PAVPZQWY GRANULOCYTES/100 LEUKOCYTES IN BLOOD BY AUTOMATED COUNT4.9 %High0.0-1.0 [facility] - DublinComment on above:Performed By: #### [id number] ####[facility] ([facility])[address] [place], [place] [address]GMUKCHJROBJ (10*3/UL) IN BLOOD BY CALCULATION1.00 10*3/uLLow1.20-4.00UnOhioHealth Dublin Methodist HospitalComment on above:Performed By: #### [id number] ####[facility] ([facility])[address] [place], [place] [address]TYPRQXTWTHU/100 LEUKOCYTES IN BLOOD BY AUTOMATED COUNT14.3 %Low20.0-45.0UnOhioHealth Dublin Methodist HospitalComment on above:Performed By: #### [id number] ####[facility] ([facility])[address] [place], [place] [address]MVYXHMQZHH (PRESENCE) IN BLOOD BY LIGHT MICROSCOPYSlight NormalUnOhioHealth Dublin Methodist HospitalComment on above:Performed By: #### [id number] ####[facility] ([facility])[address] [place] [address] MONOCYTES (10*3/UL) IN BLOOD BY CALCUATION0.68 10*3/uLNormal0.10-1.00UnOhioHealth Dublin Methodist HospitalCommunson healthcare [facility] on above:Performed By: #### [id number] ####[facility] ([facility])[address] [place], [place] [address]HRFOHACPI/100 LEUKOCYTES IN BLOOD BY AUTOMATED COUNT9.7 %Normal5.0-12.0UnOhioHealth Dublin Methodist HospitalCommunson healthcare [facility] on above:Performed By: #### [id number] ####[facility])[address] [place] [place] [address]NULCDJOEQRQ (10*3/UL) IN BLOOD BY CALCULATION4.6 10*3/uLNormal1.6-7.6UnOhioHealth Dublin Methodist HospitalComment on above:Performed By: #### [id number] ####[facility] ([facility])[address] [place], [place] [address]MHIFDVQIEEC/100 LEUKOCYTES IN BLOOD BY AUTOMATED COUNT66.2 % Buvxjo52.0-72.0UnOhioHealth Dublin Methodist HospitalCommunson healthcare [facility] on above:Performed By: #### [id number] ####[facility])[address] [place] [address] POIKILOCYTOSIS (PRESENCE) IN BLOOD BY LIGHT MICROSCOPYSlightNormalUniversKettering Health HamiltonComment on above:Performed By: #### [id number] ####[facility] ([facility])[address] [place] [place] [address]KLHT GLUCOSE METER UNSOLICITED RESULTSon 64-54-3491Wierthx [Mass/Vol]140 mg/oAYlqk49-802NptdifjsmbOhioHealth Dublin Methodist HospitalComment on above:Order Comment: Waived Testing in the ED is performed under the ED CLIA certificate #[id number].Result Comment: [email or web address] Performed By: #### [id number] ####[facility] ([facility])[address] [place], [place] [address]Ayabwav [Mass/Vol]158 mg/fNAxxp52-491MafdggjubpOhioHealth Dublin Methodist HospitalComment on above:Order Comment: Waived Testing in the ED is performed under the ED CLIA certificate #[id number].Result Comment: [email or web address] Performed By: #### [id number] ####[facility] ([facility])[address] [place], [place] [address]Sqnjqii [Mass/Vol]164 mg/zLGhlm97-388YyitxrwyssOhioHealth Dublin Methodist HospitalComment on above:Order Comment: Waived Testing in the ED is performed under the ED CLIA certificate #[id number].Result Comment: [email or web address] Performed By: #### [id number] ####[facility] ([facility])[address] [place], [place] [address]Onmhidw [Mass/Vol]96 mg/yMWyozey66-403ZmjbnpedqoOhioHealth Dublin Methodist HospitalComment on above:Order Comment: Waived Testing in the ED is performed under the ED CLIA certificate #[id number].Result Comment: [email or web address] Performed By: #### [id number] ####[facility] ([facility])[address] [place], [place] [address]79xl 29-59-357088QuudvnUqgdcvkvre of [facility]jairg58 The patient is Moderately Stable - Low risk of patient condition declining or worsening The patient's goals for the shift include Comfort The clinical goals for the shift include VSS, safetyNormalUniversity of St. Luke'S Health – The Woodlands HospitalRnjmsm66GibfvyHfjytzdvrkKettering Health HamiltonBASIC METABOLIC PANELon 02-86-6483Jxieb gap [Moles/Vol]10 mmol/LNormal7-20UnOhioHealth Dublin Methodist HospitalComment on above:Performed By: #### [id number] ####[facility] ([facility])[address] [place], [place] [address]Mthhfzr [Mass/Vol]8.0 mg/dLLow8.6-10.3 [facility] - DublinComment on above:Performed By: #### [id number] ####[facility] ([facility])[address] [place], [place] [address]Xokttreo [Moles/Vol]106 mmol/FLregsd64-747MuhljoiwnxOhioHealth Dublin Methodist HospitalComment on above:Performed By: #### [id number] ####[facility] ([facility])[address] [place] [address]GA0 [Moles/Vol]29 mmol/ZObgaoc65-87YhisewdckaOhioHealth Dublin Methodist HospitalComment on above:Performed By: #### [id number] ####[facility] ([facility])[address] [place] [address]Gmgufbhovj [Mass/Vol]2.41 mg/dLHigh 0.60-1.20UnOhioHealth Dublin Methodist HospitalComment on above:Performed By: #### [id number] ####[facility] ([facility])[address] [place] [address]TRPJHIEFBL FILTRATION RATE ML/MIN/1.73 SQ M.OHVUGITSS34.8 mL/min/1.73m*2Low>60.0UnOhioHealth Dublin Methodist HospitalComment on above:Result Comment: The [facility]???s estimated glomerular filtration rate (eGFR) will no [...] group of individuals. Performed By: #### [id number] ####[facility])[address] [place] [address]Dedveog [Mass/Vol]81 mg/yOXtvsfq13-249BrnqazfjwlOhioHealth Dublin Methodist HospitalComment on above:Performed By: #### [id number] ####[facility])[address] [place] [address]Ahxgufvxi [Moles/Vol]4.1 mmol/LNormal 3.5-5.1UnOhioHealth Dublin Methodist HospitalComment on above:Performed By: #### [id number] ####[facility])[address] [place] [address]Ynwjch [Moles/Vol]141 mmol/XZccapd324-104ZqikqfmwerOhioHealth Dublin Methodist HospitalComment on above:Performed By: #### [id number] ####[facility])[address] [place] [address]Pwdg nitrogen [Mass/Vol]36 mg/dLHigh7-25UnOhioHealth Dublin Methodist HospitalComment on above:Performed By: #### [id number] ####[facility] ([facility])[address] [place] [address]GXWF NITROGEN/CREATININE (MASS RATIO) IN SER/PLAS14.9NormalUniversKettering Health HamiltonComment on above: Performed By: #### [id number] ####[facility] ([facility])[address] [place] [address]TNC WITH AUTO DIFFERENTIALon 13-47-4200Ulepilwyt (Bld) [#/Vol]0.05 10*3/uLNormal0.00-0.20UnOhioHealth Dublin Methodist HospitalComment on above: Performed By: #### [id number] ####[facility] ([facility])[address] [place] [address]Uyyaiqotb/100 WBC (Bld)0.7 %Normal0.0-1.0UnOhioHealth Dublin Methodist HospitalComment on above:Performed By: #### [id number] ####[facility])[address] [place], [place] [address]Dejwcgeuseg (Bld) [#/Vol]0.29 10*3/uL Normal0.00-0.50UnOhioHealth Dublin Methodist HospitalComment on above:Performed By: #### [id number] ####[facility] ([facility])[address] [place] [address] Eosinophils/100 WBC (Bld)4.2 %Normal0.0-6.0UnOhioHealth [facility] Comment on above:Performed By: #### [id number] ####[facility])[address] [place], [place] [address]Yfoyhxvbfpb distribution width (RBC) [Ratio]16.9 % High11.5-15.0UnOhioHealth Dublin Methodist HospitalComment on above:Performed By: #### [id number] ####[facility])[address] [place] [address] ERYTHROCYTE MEAN CORPUSCULAR HEMOGLOBIN CONCENTRATION (G/DL) BY TIMAGBEJM91.1 g/dLLow32.0-35.0UnOhioHealth Dublin Methodist HospitalComment on above:Performed By: #### [id number] ####[facility])[address] [place], [place] [address]Wpwralhkcs (Bld) [Volume fraction]28.6 %Low36.0-48.0UnOhioHealth Dublin Methodist HospitalComment on above:Performed By: #### [id number] ####[facility])[address] [place], [place] [address]Xzmbxvkagt (Bld) [Mass/Vol]8.6 g/dLLow 12.0-15.0UnOhioHealth Dublin Methodist HospitalComment on above:Performed By: #### [id number] ####[facility])[address] [place], [place] [address]Ydejmsnk granulocytes (Bld) [#/Vol]0.32 10*3/uLHigh0.00-0.20UnOhioHealth Dublin Methodist HospitalComment on above:Performed By: #### [id number] ####[facility])[address] [place], [place] [address]Ykdorumt granulocytes/100 WBC (Bld)4.6 %High0.0-1.0UnOhioHealth Dublin Methodist HospitalComment on above:Performed By: #### [id number] ####[facility])[address] [place] [address] Lymphocytes (Bld) [#/Vol]1.03 10*3/uLLow1.20-4.00UnOhioHealth Dublin Methodist HospitalComment on above:Performed By: #### [id number] ####[facility] ([facility])[address] [place], [place] [address]Yywquvydwfk/100 WBC (Bld)14.9 %Low 20.0-45.0UnOhioHealth Dublin Methodist HospitalComment on above:Performed By: #### [id number] ####[facility])[address] [place] [place], [place] [address]TWG (RBC) [Entitic mass]27.8 bpHczmyo14.0-33.0UnOhioHealth [facility] Comment on above:Performed By: #### [id number] ####[facility] ([facility])[address] [place], [place] [address]FIY (RBC) [Entitic vol]92.6 mTJfiksl03.0-98.0 [facility] DublinComment on above:Performed By: #### [id number] ####[facility] ([facility])[address] [place], [place] [address]Uweaknryx (Bld) [#/Vol]0.59 10*3/uLNormal0.10-1.00UnOhioHealth Dublin Methodist HospitalComment on above:Performed By: #### [id number] ####[facility] ([facility])[address] [place], [place] [address]Vxnixtapz/100 WBC (Bld)8.5 %Normal5.0-12.0UnOhioHealth Dublin Methodist HospitalComment on above:Performed By: #### [id number] ####[facility] ([facility])[address] [place], [place] [address]Teregptwpon (Bld) [#/Vol] 4.63 10*3/uLNormal1.60-7.60UnOhioHealth Dublin Methodist HospitalComment on above: Performed By: #### [id number] ####[facility] ([facility])[address] [place], [place] [address]Nackazeagtp/100 WBC (Bld)67.1 %Pbvjbq72.0-72.0UnOhioHealth Dublin Methodist HospitalComment on above:Performed By: #### [id number] ####[facility] ([facility])[address] [place] [address]MWEK (PER 100 WBCS) BY AUTOMATED COUNT0.0 %Ybcudh0DjcrficlxiOhioHealth Dublin Methodist HospitalComment on above: Performed By: #### [id number] ####[facility] ([facility])[address] [place] [address]TBNSFYPUE (10*3/UL) IN BLOOD AUTOMATED [id number] 10*3/uLNormal 150-400UnOhioHealth Dublin Methodist HospitalComment on above:Performed By: #### [id number] ####[facility] ([facility])[address] [place] [address]PNY (Bld) [#/Vol]3.09 10*6/uLLow3.80-5.00UnOhioHealth Dublin Methodist HospitalComment on above:Performed By: #### [id number] ####[facility] ([facility])[address] [place] [address]YHA (Bld) [#/Vol]6.91 10*3/uLNormal4.00-10.60UnOhioHealth Dublin Methodist HospitalComment on above:Performed By: #### [id number] ####[facility] ([facility])[address] [place], [place] [address]SHJJJMBHJiy 02-10-2024 Magnesium [Mass/Vol]2.7 mg/dLNormal1.9-2.7UnOhioHealth [facility] Comment on above:Performed By: #### [id number] ####[facility] ([facility])[address] [place], [place] [address]YBOP GLUCOSE METER UNSOLICITED RESULTSon 02-10-2024 Glucose [Mass/Vol]110 mg/gCCdjb86-254UldfwjciytOhioHealth Dublin Methodist HospitalComment on above:Order Comment: Waived Testing in the ED is performed under the ED CLIA certificate #[id number].Result Comment: fyaqlcm9Esmwgxdlm By: #### [id number] ####[facility] ([facility])[address] [place], [place] [address]Xikpxzb [Mass/Vol]181 mg/xEKnuk58-053TvqwpgbthfOhioHealth Dublin Methodist HospitalComment on above:Order Comment: Waived Testing in the ED is performed under the ED CLIA certificate #[id number].Result Comment: yxlrekl6Iiugaskbc By: #### [id number] ####[facility] [place], [place] [address]Ycctabu [Mass/Vol]136 mg/tHYqym81-376EwxyjhwaytOhioHealth Dublin Methodist HospitalComment on above:Order Comment: Waived Testing in the ED is performed under the ED CLIA certificate #[id number].Result Comment: sfctckt8Dtghtbscx By: #### [id number] ####[facility])[address] [place], [place] [address]Qnvrrqx [Mass/Vol]92 mg/nHPwrney78-130UdewralddwOhioHealth Dublin Methodist HospitalComment on above:Order Comment: Waived Testing in the ED is performed under the ED CLIA certificate #[id number].Result Comment: sksxui103Pswrfxvas By: #### [id number] ####[facility])[address] [place], [place] [address]Lbefbyh [Mass/Vol]99 mg/sNEnyacv48-691LnkuekhpcdOhioHealth Dublin Methodist HospitalComment on above:Order Comment: Waived Testing in the ED is performed under the ED CLIA certificate #[id number].Result Comment: [id number] By: #### [id number] ####[facility])[address] [place], [place] [address]ev 02-09-[address] Luke'S Health – The Woodlands HospitalQmhacu08OgoecjHbjaetddah of St. Luke'S Health – The Woodlands HospitalCjbhcd97UpynepBuhnkugtmv Fort Hamilton HospitalBASIC METABOLIC PANELon 51-26-6477Yaunk gap [Moles/Vol]10 mmol/LNormal7-20UnOhioHealth Dublin Methodist HospitalComment on above:Performed By: #### [id number] ####[facility])[address] [place], [place] [address]Ruknsrg [Mass/Vol]8.1 mg/dLLow8.6-10.3 [facility] DublinComment on above:Performed By: #### [id number] ####[facility] ([facility])[address] [place] [address]Qfnvjdez [Moles/Vol]104 mmol/JVrmsyp07-174MhqdyehhziOhioHealth Dublin Methodist HospitalComment on above:Performed By: #### [id number] ####[facility] ([facility])[address] [place] [address]OV5 [Moles/Vol]30 mmol/WDlagid68-02JqetseaubnOhioHealth Dublin Methodist HospitalComment on above:Performed By: #### [id number] ####[facility] ([facility])[address] [place] [address]Nrjadnbuxu [Mass/Vol]3.10 mg/dLHigh 0.60-1.20UnOhioHealth Dublin Methodist HospitalComment on above:Performed By: #### [id number] ####[facility] ([facility])[address] [place] [address]RWGIQNWUGM FILTRATION RATE ML/MIN/1.73 SQ M.YJUNJXXOH77.7 mL/min/1.73m*2Low>60.0UnOhioHealth Dublin Methodist HospitalComment on above:Result Comment: The [facility]???s estimated glomerular filtration rate (eGFR) will no [...] group of individuals. Performed By: #### [id number] ####[facility] ([facility])[address] [place] [address]Gnfskgf [Mass/Vol]89 mg/kJDwlynl14-161QwbnzgpnlqOhioHealth Dublin Methodist HospitalComment on above:Performed By: #### [id number] ####[facility] ([facility])[address] [place] [address]Grtnuzcic [Moles/Vol]4.2 mmol/LNormal 3.5-5.1UnOhioHealth Dublin Methodist HospitalComment on above:Performed By: #### [id number] ####[facility] ([facility])[address] [place] [address]Jxkahs [Moles/Vol]140 mmol/BVpdtdu378-707DetqtpyyhyOhioHealth Dublin Methodist HospitalComment on above:Performed By: #### [id number] ####[facility] ([facility])[address] [place] [address]Gaqc nitrogen [Mass/Vol]45 mg/dLHigh7-25UnOhioHealth Dublin Methodist HospitalComment on above:Performed By: #### [id number] ####[facility] ([facility])[address] [place] [place], [place] [address]FCIY NITROGEN/CREATININE (MASS RATIO) IN SER/PLAS14.5NormalUniversKettering Health HamiltonComment on above: Performed By: #### [id number] ####[facility] [facility] ([facility])[address] [place], [place] [address]JIV WITH AUTO DIFFERENTIALon 56-71-2400Bajsjqizq (Bld) [#/Vol]0.05 10*3/uLNormal0.00-0.20UnOhioHealth Dublin Methodist HospitalComment on above: Performed By: #### [id number] ####[facility] ([facility])[address] [facility] [place], [place] [address]Osovfynmd/100 WBC (Bld)0.7 %Normal0.0-1.0UnOhioHealth Dublin Methodist HospitalComment on above:Performed By: #### [id number] ####[facility] ([facility])[address] [facility] [place]Us[place], [place] [address]Bpfuwunlpnu (Bld) [#/Vol]0.24 10*3/uL Normal0.00-0.50UnOhioHealth Dublin Methodist HospitalComment on above:Performed By: #### [id number] ####[facility] ([facility])[address] [place] [address] Eosinophils/100 WBC (Bld)3.1 %Normal0.0-6.0UnOhioHealth Dublin Methodist Hospital Comment on above:Performed By: #### [id number] ####[facility] ([facility])[address] [place], [place] [address]Qrnnwhmwzal distribution width (RBC) [Ratio]17.1 % High11.5-15.0UnOhioHealth Dublin Methodist HospitalComment on above:Performed By: #### [id number] ####[facility] ([facility])[address] [place] [address] ERYTHROCYTE MEAN CORPUSCULAR HEMOGLOBIN CONCENTRATION (G/DL) BY WYBZREFIP90.4 g/dLLow32.0-35.0UnOhioHealth Dublin Methodist HospitalComment on above:Performed By: #### [id number] ####[facility] ([facility])[address] [place], [place] [address]Owbbjosrvr (Bld) [Volume fraction]27.2 %Low36.0-48.0UnOhioHealth Dublin Methodist HospitalComment on above:Performed By: #### [id number] ####[facility] ([facility])[address] [place], [place] [address]Akigjwbwzf (Bld) [Mass/Vol]8.0 g/dLLow 12.0-15.0UnOhioHealth Dublin Methodist HospitalComment on above:Performed By: #### [id number] ####[facility] ([facility])[address] [place], [place] [address]Dludwyfg granulocytes (Bld) [#/Vol]0.28 10*3/uLHigh0.00-0.20UnOhioHealth Dublin Methodist HospitalComment on above:Performed By: #### [id number] ####[facility] ([facility])[address] [place], [place] [address]Dbtvhjlf granulocytes/100 WBC (Bld)3.7 %High0.0-1.0UnOhioHealth Dublin Methodist HospitalComment on above:Performed By: #### [id number] ####[facility] ([facility])[address] [place] [address] Lymphocytes (Bld) [#/Vol]0.92 10*3/uLLow1.20-4.00UnOhioHealth Dublin Methodist HospitalComment on above:Performed By: #### [id number] ####[facility] ([facility])[address] [place] [address]Viledpgfsat/100 WBC (Bld)12.0 %Low 20.0-45.0UnOhioHealth Dublin Methodist HospitalComment on above:Performed By: #### [id number] ####[facility] ([facility])[address] [place], [place] [address]LUF (RBC) [Entitic mass]27.4 diSdpoiw60.0-33.0UnOhioHealth Dublin Methodist Hospital Comment on above:Performed By: #### [id number] ####[facility] ([facility])[address] [place], [place] [address]UWE (RBC) [Entitic vol]93.2 lTNjomch46.0-98.0 [facility] - DublinComment on above:Performed By: #### [id number] ####[facility] ([facility])[address] [place], [place] [address]Yvhpihnax (Bld) [#/Vol]0.65 10*3/uLNormal0.10-1.00UnOhioHealth Dublin Methodist HospitalComment on above:Performed By: #### [id number] ####[facility] ([facility])[address] [place], [place] [address]Txadfugzk/100 WBC (Bld)8.5 %Normal5.0-12.0UnOhioHealth Dublin Methodist HospitalComment on above:Performed By: #### [id number] ####[facility] ([facility])[address] [facility] [place], [place] [address]Eikqehmzref (Bld) [#/Vol] 5.79 10*3/uLNormal1.60-7.60UnOhioHealth Dublin Methodist HospitalComment on above: Performed By: #### [id number] ####[facility] ([facility])[address] [place] [address]Itxyfaemgte/100 WBC (Bld)75.7 %High40.0-72.0UnOhioHealth Dublin Methodist HospitalComment on above:Performed By: #### [id number] ####[facility] ([facility])[address] [place] [address]ITFT (PER 100 WBCS) BY AUTOMATED COUNT0.0 %Cqmdtz9IcpcdvpguzOhioHealth Dublin Methodist HospitalComment on above: Performed By: #### [id number] ####[facility] ([facility])[address] [place] [address]NUMOBJGHA (10*3/UL) IN BLOOD AUTOMATED [id number] 10*3/uLNormal 150-400UnOhioHealth Dublin Methodist HospitalComment on above:Performed By: #### [id number] ####[facility] ([facility])[address] [place] [address]TIJ (Bld) [#/Vol]2.92 10*6/uLLow3.80-5.00UnOhioHealth Dublin Methodist HospitalComment on above:Performed By: #### [id number] ####[facility] ([facility])[address] [place] [address]RAT (Bld) [#/Vol]7.65 10*3/uLNormal4.00-10.60UnOhioHealth Dublin Methodist HospitalComment on above:Performed By: #### [id number] ####[facility] ([facility])[address] [place] [address]LANENVRrn 02-09-2024 CONSULTNormalUniversity Fort Hamilton HospitalMAGNESIUMon 80-38-0935Zmkyktnel [Mass/Vol]3.2 mg/dLHigh1.9-2.7UnOhioHealth Dublin Methodist HospitalComment on above:Performed By: #### [id number] ####[facility] ([facility])[address] [place] [address]PLFG GLUCOSE METER UNSOLICITED RESULTSon 88-97-1547Ajhtltt [Mass/Vol]173 mg/yYEzgz54-168FsshhnhgayOhioHealth Dublin Methodist HospitalComment on above:Order Comment: Waived Testing in the ED is performed under the ED CLIA certificate #[id number].Result Comment: gnpjss61Vnnapiyti By: #### [id number] ####[facility] ([facility])[address] [place], [place] [address]Qbuaqar [Mass/Vol]201 mg/pTHlry51-607HqfiecyihvOhioHealth Dublin Methodist HospitalComment on above:Order Comment: Waived Testing in the ED is performed under the ED CLIA certificate #[id number].Result Comment: bfloodPerformed By: #### [id number] ####[facility] ([facility])[address] [place], [place] [address]Apkfwtg [Mass/Vol]118 mg/mKKfef61-497XinynghavpOhioHealth Dublin Methodist HospitalComment on above:Order Comment: Waived Testing in the ED is performed under the ED CLIA certificate #[id number].Result Comment: [id number] By: #### [id number] ####[facility] ([facility])[address] [place], [place] [address]Tjwxcdl [Mass/Vol]129 mg/vXBxze78-281PuasklmsvjOhioHealth Dublin Methodist HospitalComment on above:Order Comment: Waived Testing in the ED is performed under the ED CLIA certificate #[id number].Result Comment: [id number] By: #### [id number] ####[facility] ([facility])[address] [place], [place] [address]20hf 02-08-2024 30NormalUniversity Fort [facility] Hospital30NormalUniversity Fort Hamilton HospitalBASIC METABOLIC PANELon 78-78-3644Hprwk gap [Moles/Vol]10 mmol/LNormal7-20 [facility] - DublinComment on above:Performed By: #### [id number] ####[facility] ([facility])[address] [place], [place] [address]Vrsmigb [Mass/Vol]8.3 mg/dLLow8.6-10.3UnOhioHealth Dublin Methodist HospitalComment on above:Performed By: #### [id number] ####[facility] ([facility])[address] [place], [place] [address]Uwwkogte [Moles/Vol]101 mmol/GBslugv15-765BqmqmklswhOhioHealth Dublin Methodist HospitalComment on above:Performed By: #### [id number] ####[facility] ([facility])[address] [place], [place] [address]OH[address] [Moles/Vol]30 mmol/LNormal 21-31UnOhioHealth Dublin Methodist HospitalComment on above:Performed By: #### [id number] ####[facility] ([facility])[address] [place], [place] [address]Wedslapjsl [Mass/Vol]3.65 mg/dLHigh0.60-1.20UnOhioHealth Dublin Methodist HospitalComment on above:Performed By: #### [id number] ####[facility] ([facility])[address] [place], [place] [address]ZJHPQWWGLD FILTRATION RATE ML/MIN/1.73 SQ M.NGGIUAJPO47.0 mL/min/1.73m*2Low>60.0UnOhioHealth Dublin Methodist HospitalComment on above:Result Comment: The [facility]???s estimated glomerular filtration rate (eGFR) will no [...] anyone group of individuals.Performed By: #### [id number] ####[facility] ([facility])[address] [place], [place] [address]Dtwiqnh [Mass/Vol]102 mg/vSWrvc80-168WpdwhstlcdOhioHealth Dublin Methodist HospitalComment on above:Performed By: #### [id number] ####[facility] ([facility])[address] [place], [place] [address]Pbvvplxjn [Moles/Vol]4.2 mmol/L Normal3.5-5.1UnOhioHealth Dublin Methodist HospitalComment on above:Performed By: #### [id number] ####[facility] ([facility])[address] [place] [address] Sodium [Moles/Vol]137 mmol/HCpzdid635-277LfyhwrimtjOhioHealth Dublin Methodist Hospital Comment on above:Performed By: #### [id number] ####[facility] ([facility])[address] [place] [address]Tytc nitrogen [Mass/Vol]50 mg/dLHigh7-25UnOhioHealth Dublin Methodist HospitalComment on above:Performed By: #### [id number] ####[facility] ([facility])[address] [place] [address]GHFH NITROGEN/CREATININE (MASS RATIO) IN SER/PLAS13.7NormalUniversKettering Health HamiltonComment on above:Performed By: #### [id number] ####[facility])[address] [place], [place] [address]HMO WITH AUTO DIFFERENTIALon 84-73-1955Gbssfnqyy (Bld) [#/Vol]0.03 10*3/uLNormal0.00-0.20UnOhioHealth Dublin Methodist HospitalComment on above:Performed By: #### [id number] ####[facility])[address] [place] [address]Kczirjlgr/100 WBC (Bld)0.4 %Normal0.0-1.0UnOhioHealth Dublin Methodist HospitalComment on above:Performed By: #### [id number] ####[facility] ([facility])[address] [place] [address]Mxclbfrxcen (Bld) [#/Vol]0.20 10*3/uL Normal0.00-0.50UnOhioHealth Dublin Methodist HospitalComment on above:Performed By: #### [id number] ####[facility])[address] [place] [address] Eosinophils/100 WBC (Bld)2.9 %Normal0.0-6.0UnOhioHealth [facility] Methodist Hospital Comment on above:Performed By: #### [id number] ####[facility] ([facility])[address] [place], [place] [address]Ojsedmynrbv distribution width (RBC) [Ratio]16.9 % High11.5-15.0UnOhioHealth Dublin Methodist HospitalComment on above:Performed By: #### [id number] ####[facility] ([facility])[address] [place] [address] ERYTHROCYTE MEAN CORPUSCULAR HEMOGLOBIN CONCENTRATION (G/DL) BY SGJLTHGLT85.8 g/dLLow32.0-35.0UnOhioHealth Dublin Methodist HospitalComment on above:Performed By: #### [id number] ####[facility] ([facility])[address] [place], [place] [address]Gqxupnksqk (Bld) [Volume fraction]25.3 %Low36.0-48.0UnOhioHealth Dublin Methodist HospitalComment on above:Performed By: #### [id number] ####[facility])[address] [place], [place] [address]Ddhmgxwkyv (Bld) [Mass/Vol]7.8 g/dLLow 12.0-15.0UnOhioHealth Dublin Methodist HospitalComment on above:Performed By: #### [id number] ####[facility] ([facility])[address] [place], [place] [address]Gxlfduyv granulocytes (Bld) [#/Vol]0.23 10*3/uLHigh0.00-0.20UnOhioHealth Dublin Methodist HospitalComment on above:Performed By: #### [id number] ####[facility])[address] [place], [place] [address]Lfcahcsx granulocytes/100 WBC (Bld)3.3 %High0.0-1.0UnOhioHealth Dublin Methodist HospitalComment on above:Performed By: #### [id number] ####[facility] ([facility])[address] [place] [address] Lymphocytes (Bld) [#/Vol]0.80 10*3/uLLow1.20-4.00UnOhioHealth Dublin Methodist HospitalComment on above:Performed By: #### [id number] ####[facility])[address] [place], [place] [address]Ltmmlvzysrk/100 WBC (Bld)11.5 %Low 20.0-45.0UnOhioHealth Dublin Methodist HospitalComment on above:Performed By: #### [id number] ####[facility] ([facility])[address] [place], [place] [address]HBN (RBC) [Entitic mass]28.3 tlWtmcis51.0-33.0UnOhioHealth [facility] Hospital Comment on above:Performed By: #### [id number] ####[facility])[address] [place], [place] [address]JAN (RBC) [Entitic vol]91.7 sNMhkwel70.0-98.0 [facility] - DublinComment on above:Performed By: #### [id number] ####[facility] ([facility])[address] [place], [place] [address]Bmywzasem (Bld) [#/Vol]0.63 10*3/uLNormal0.10-1.00UnOhioHealth Dublin Methodist HospitalComment on above:Performed By: #### [id number] ####[facility] ([facility])[address] [place], [place] [address]Dvtnqkejv/100 WBC (Bld)9.0 %Normal5.0-12.0UnOhioHealth Dublin Methodist HospitalComment on above:Performed By: #### [id number] ####[facility])[address] [facility] [place] [address]Awjstazqapv (Bld) [#/Vol] 5.32 10*3/uLNormal1.60-7.60UnOhioHealth Dublin Methodist HospitalComment on above: Performed By: #### [id number] ####[facility] ([facility])[address] [place], [place] [address]Kiqybzoktsq/100 WBC (Bld)76.2 %High40.0-72.0UnOhioHealth Dublin Methodist HospitalComment on above:Performed By: #### [id number] ####[facility])[address] [place] [address]DELD (PER 100 WBCS) BY AUTOMATED COUNT0.0 %Gtbgcl3ArpmhhsfgsOhioHealth Dublin Methodist HospitalComment on above: Performed By: #### [id number] ####[facility])[address] [place] [address]BLPUXSRCF (10*3/UL) IN BLOOD AUTOMATED [id number] 10*3/uLNormal 150-400UnOhioHealth Dublin Methodist HospitalComment on above:Performed By: #### [id number] ####[facility])[address] [place] [address]OPW (Bld) [#/Vol]2.76 10*6/uLLow3.80-5.00UnOhioHealth Dublin Methodist HospitalComment on above:Performed By: #### [id number] ####[facility])[address] [place] [address]ZKR (Bld) [#/Vol]6.98 10*3/uLNormal4.00-10.60UnOhioHealth Dublin Methodist HospitalComment on above:Performed By: #### [id number] ####[facility])[address] [place] [address]COWCVWOOVdw 02-08-2024 Magnesium [Mass/Vol]3.6 mg/dLHigh1.9-2.7UnOhio[facility] Hospital Comment on above:Performed By: #### [id number] ####[facility])[address] [place] [address]LUGPTTDEaw 05-58-6927UFVKDPLFMtrczeJeroyqcewx of Toledo Medical CenterPOCT GLUCOSE METER UNSOLICITED RESULTSon 01-52-9584Ugoqyxv [Mass/Vol]160 mg/dIWtpv39-023IystmkkgzlOhioHealth Dublin Methodist HospitalComment on above:Order Comment: Waived Testing in the ED is performed under the ED CLIA certificate #[id number].Result Comment: iopst7Pleqrhvsn By: #### [id number] ####[facility])[address] [place], [place] [address]Rmifprv [Mass/Vol]128 mg/dIMxmy49-642LlwevzddmrOhioHealth Dublin Methodist HospitalComment on above:Order Comment: Waived Testing in the ED is performed under the ED CLIA certificate #[id number].Result Comment: rstk6Vnwwayjtm By: #### [id number] ####[facility])[address] [place] [address]yk 02-07-2024 30NormalUniversKettering Health Hamilton30NormalUniversKettering Health HamiltonB-TYPE NATRIURETIC PEPTIDEon 54-14-2989Nwqhhqbmgmp peptide B (Bld) [Mass/Vol]1210 pg/mLHigh0-100UnOhioHealth Dublin Methodist HospitalComment on above:Performed By: #### [id number] ####[facility])[address] [place], [place] [address]BJQVO METABOLIC PANELon 44-95-5632Bypha gap [Moles/Vol]13 mmol/LNormal7-20UnOhioHealth Dublin Methodist HospitalComment on above:Performed By: #### [id number] ####[facility] ([facility])[address] [place] [address] Calcium [Mass/Vol]8.2 mg/dLLow8.6-10.3UnOhioHealth Dublin Methodist HospitalComment on above:Performed By: #### [id number] ####[facility] ([facility])[address] [place], [place] [address]Ckxkzvnn [Moles/Vol]100 mmol/YDujehy98-055KnojauwvyfOhioHealth Dublin Methodist HospitalComment on above:Performed By: #### [id number] ####[facility] ([facility])[address] [place], [place] [address]UG7 [Moles/Vol]29 mmol/LNormal 21-31UnOhioHealth Dublin Methodist HospitalComment on above:Performed By: #### [id number] ####[facility] ([facility])[address] [place] [address]Acjctotmzo [Mass/Vol]3.57 mg/dLHigh0.60-1.20UnOhioHealth Dublin Methodist HospitalComment on above:Performed By: #### [id number] ####[facility] ([facility])[address] [place] [address]YSXDSJRWFP FILTRATION RATE ML/MIN/1.73 SQ M.KWAFWNXDI94.4 mL/min/1.73m*2Low>60.0UnOhioHealth Dublin Methodist HospitalComment on above:Result Comment: The [facility]???s estimated glomerular filtration rate (eGFR) will no [...] anyone group of individuals.Performed By: #### [id number] ####[facility])[address] [place] [address]Cjvojpt [Mass/Vol]107 mg/wAThbt92-509MmnuodihjmOhioHealth Dublin Methodist HospitalComment on above:Performed By: #### [id number] ####[facility] ([facility])[address] [place] [address]Rjcvbhepl [Moles/Vol]4.0 mmol/L Normal3.5-5.1UnOhioHealth Dublin Methodist HospitalComment on above:Performed By: #### [id number] ####[facility] ([facility])[address] [place] [address] Sodium [Moles/Vol]138 mmol/NJfqzmd902-612HhvshnodprOhioHealth Dublin Methodist Hospital Comment on above:Performed By: #### [id number] ####[facility] ([facility])[address] [place], [place] [address]Nefp nitrogen [Mass/Vol]48 mg/dLHigh7-25University of Barcenas Medical CenterComment on above:Performed By: #### [id number] ####[facility] ([facility])[address] [place], [place] [address]AIYS NITROGEN/CREATININE (MASS RATIO) IN SER/PLAS13.4NormalUniversKettering Health HamiltonComment on above:Performed By: #### [id number] ####[facility] ([facility])[address] [place], [place] [address]RMF WITH AUTO DIFFERENTIALon 71-07-75[address]Nlttczphp (Bld) [#/Vol]0.02 10*3/uLNormal0.00-0.20UnOhioHealth Dublin Methodist HospitalComment on above:Performed By: #### [id number] ####[facility] ([facility])[address] [place], [place] [address]Drjcszhto/100 WBC (Bld)0.3 %Normal0.0-1.0UnOhioHealth Dublin Methodist HospitalComment on above:Performed By: #### [id number] ####[facility] ([facility])[address] [place], [place] [address]Qwnbqgdypqu (Bld) [#/Vol]0.01 10*3/uL Normal0.00-0.50UnOhioHealth Dublin Methodist HospitalComment on above:Performed By: #### [id number] ####[facility] ([facility])[address] [place] [address] Eosinophils/100 WBC (Bld)0.1 %Normal0.0-6.0UnOhioHealth [facility] Methodist Hospital Comment on above:Performed By: #### [id number] ####[facility] ([facility])[address] [place], [place] [address]Ijgdxsiiyxu distribution width (RBC) [Ratio]16.9 % High11.5-15.0UnOhioHealth Dublin Methodist HospitalComment on above:Performed By: #### [id number] ####[facility] ([facility])[address] [place] [address] ERYTHROCYTE MEAN CORPUSCULAR HEMOGLOBIN CONCENTRATION (G/DL) BY AKRWJUPET58.5 g/dLLow32.0-35.0UnOhioHealth Dublin Methodist HospitalComment on above:Performed By: #### [id number] ####[facility] ([facility])[address] [place], [place] [address]Wtxncvregg (Bld) [Volume fraction]24.6 %Low36.0-48.0UnOhioHealth Dublin Methodist HospitalComment on above:Performed By: #### [id number] ####[facility] ([facility])[address] [place], [place] [address]Oxzujidolw (Bld) [Mass/Vol]7.5 g/dLLow 12.0-15.0UnOhioHealth Dublin Methodist HospitalComment on above:Performed By: #### [id number] ####[facility] ([facility])[address] [place], [place] [address]Zxbsfhkf granulocytes (Bld) [#/Vol]0.09 10*3/uLNormal0.00-0.20UnOhioHealth Dublin Methodist HospitalComment on above:Performed By: #### [id number] ####[facility] ([facility])[address] [place], [place] [address]Torfpkxb granulocytes/100 WBC (Bld)1.2 %High0.0-1.0UnOhioHealth Dublin Methodist HospitalComment on above:Performed By: #### [id number] ####[facility] ([facility])[address] [place] [address] Lymphocytes (Bld) [#/Vol]0.66 10*3/uLLow1.20-4.00UnOhioHealth Dublin Methodist HospitalComment on above:Performed By: #### [id number] ####[facility] ([facility])[address] [place], [place] [address]Drrgorojdnw/100 WBC (Bld)8.6 %Low 20.0-45.0UnOhioHealth Dublin Methodist HospitalComment on above:Performed By: #### [id number] ####[facility] ([facility])[address] [place], [place] [address]IOS (RBC) [Entitic mass]27.7 qrYiunkq55.0-33.0UnOhioHealth [facility] Methodist Hospital Comment on above:Performed By: #### [id number] ####[facility] ([facility])[address] [place] [address]ELE (RBC) [Entitic vol]90.8 tXQshpkd66.0-98.0 [facility] - DublinComment on above:Performed By: #### [id number] ####[facility] ([facility])[address] [place] [address]Wppizsnld (Bld) [#/Vol]0.50 10*3/uLNormal0.10-1.00UnOhioHealth Dublin Methodist HospitalComment on above:Performed By: #### [id number] ####[facility] ([facility])[address] [place] [address]Skbvxdtbz/100 WBC (Bld)6.5 %Normal5.0-12.0UnOhioHealth Dublin Methodist HospitalComment on above:Performed By: #### [id number] ####[facility] ([facility])[address] [place] [address]Cirayafsaoi (Bld) [#/Vol] 6.50 10*3/uLNormal1.60-7.60UnOhioHealth Dublin Methodist HospitalComment on above: Performed By: #### [id number] ####[facility] ([facility])[address] [place] [address]Yrchsgheegu/100 WBC (Bld)84.5 %High40.0-72.0UnOhioHealth Dublin Methodist HospitalComment on above:Performed By: #### [id number] ####[facility] ([facility])[address] [place] [address]XUQY (PER 100 WBCS) BY AUTOMATED COUNT0.0 %Fczfrc5NsnmnarrypOhioHealth Dublin Methodist HospitalComment on above: Performed By: #### [id number] ####[facility] ([facility])[address] [address] [place] [address]QFLUUCJBG (10*3/UL) IN BLOOD AUTOMATED ADVQI324 10*3/uLNormal 150-400UnOhioHealth Dublin Methodist HospitalComment on above:Performed By: #### [id number] ####[facility] ([facility])[address] [place] [address]EED (Bld) [#/Vol]2.71 10*6/uLLow3.80-5.00UnOhioHealth Dublin Methodist HospitalComment on above:Performed By: #### [id number] ####[facility] ([facility])[address] [place] [address]PHO (Bld) [#/Vol]7.69 10*3/uLNormal4.00-10.60UnOhioHealth Dublin Methodist HospitalComment on above:Performed By: #### [id number] ####[facility] ([facility])[address] [place] [address]WFUSQYUVOgi 02-07-2024 Magnesium [Mass/Vol]3.7 mg/dLHigh1.9-2.7UnOhioHealth Dublin Methodist Hospital Comment on above:Performed By: #### [id number] ####[facility] ([facility])[address] [place] [address]GFGE GLUCOSE METER UNSOLICITED RESULTSon 02-07-2024 Glucose [Mass/Vol]141 mg/yGYssy03-695YnfrbobnukSelect Medical OhioHealth Rehabilitation Hospital - DublinComment on above:Order Comment: Waived Testing in the ED is performed under the ED CLIA certificate #[id number].Result Comment: [id number] By: #### [id number] ####[facility] ([facility])[address] [place], [place] [address]Xeelnrs [Mass/Vol]133 mg/xABjef19-627OfskhbkjbeOhioHealth Dublin Methodist HospitalComment on above:Order Comment: Waived Testing in the ED is performed under the ED CLIA certificate #[id number].Result Comment: lptfjvt3Cndzlaqim By: #### [id number] ####[facility] ([facility])[address] [place], [place] [address]Gykkrws [Mass/Vol]127 mg/uCOmbu13-352KodgbsxqjrOhioHealth Dublin Methodist HospitalComment on above:Order Comment: Waived Testing in the ED is performed under the ED CLIA certificate #[id number].Result Comment: [id number] By: #### [id number] ####[facility] ([facility])[address] [place] [address]17mp 02-06-2024 30NormalUniversKettering Health Hamilton30NormalUniversKettering Health HamiltonBASIC METABOLIC PANELon 55-86-7036Mrsgv gap [Moles/Vol]17 mmol/LNormal7-20 [facility] Hospital - DublinComment on above:Performed By: #### [id number] ####[facility] ([facility])[address] [place] [address]Fkscnws [Mass/Vol]8.2 mg/dLLow8.6-10.3UnOhioHealth Dublin Methodist HospitalComment on above:Performed By: #### [id number] ####[facility] ([facility])[address] [place], [place] [address]Xdyjvmkh [Moles/Vol]100 mmol/CCfxbqg06-971DnhvmqdshgOhioHealth Dublin Methodist HospitalComment on above:Performed By: #### [id number] ####[facility] ([facility])[address] [place], [place] [address]ML8 [Moles/Vol]25 mmol/LNormal 21-31UnOhioHealth Dublin Methodist HospitalComment on above:Performed By: #### [id number] ####[facility] ([facility])[address] [place], [place] [address]Ggbwkgbqay [Mass/Vol]3.14 mg/dLHigh0.60-1.20UnOhioHealth Dublin Methodist HospitalComment on above:Performed By: #### [id number] ####[facility] ([facility])[address] [place], [place] [address]FRBVSJXHFL FILTRATION RATE ML/MIN/1.73 SQ M.TMGPANKVV60.4 mL/min/1.73m*2Low>60.0UnOhioHealth Dublin Methodist HospitalComment on above:Result Comment: The [facility]???s estimated glomerular filtration rate (eGFR) will no [...] anyone group of individuals.Performed By: #### [id number] ####[facility] ([facility])[address] [place], [place] [address]Biobeif [Mass/Vol]97 mg/sKJqmxja60-948ZyisjujvjwOhioHealth Dublin Methodist HospitalComment on above:Performed By: #### [id number] ####[facility] ([facility])[address] [place], [place] [address]Ykofqaogq [Moles/Vol]4.3 mmol/LNormal3.5-5.1UnOhioHealth Dublin Methodist HospitalComment on above:Performed By: #### [id number] ####[facility] ([facility])[address] [place] [address] Sodium [Moles/Vol]138 mmol/MJgobfd317-912KyyguijglqOhioHealth Dublin Methodist Hospital Comment on above:Performed By: #### [id number] ####[facility] ([facility])[address] [place], [place] [address]Jjrj nitrogen [Mass/Vol]37 mg/dLHigh7-25UnOhioHealth Dublin Methodist HospitalComment on above:Performed By: #### [id number] ####[facility] ([facility])[address] [place], [place] [address]BNAN NITROGEN/CREATININE (MASS RATIO) IN SER/PLAS11.8NormalUniversKettering Health HamiltonComment on above:Performed By: #### [id number] ####[facility] ([facility])[address] [place], [place] [address]ZVO WITH AUTO DIFFERENTIALon 83-50-4911Mpqamitgl (Bld) [#/Vol]0.01 10*3/uLNormal0.00-0.20UnOhioHealth Dublin Methodist HospitalComment on above:Performed By: #### [id number] ####[facility] ([facility])[address] [place], [place] [address]Wlhfuetqw/100 WBC (Bld)0.1 %Normal0.0-1.0UnOhioHealth Dublin Methodist HospitalComment on above:Performed By: #### [id number] ####[facility] ([facility])[address] [place], [place] [address]Bdyyotxcsay (Bld) [#/Vol]0.00 10*3/uL Normal0.00-0.50UnOhioHealth Dublin Methodist HospitalComment on above:Performed By: #### [id number] ####[facility] ([facility])[address] [place] [address] Eosinophils/100 WBC (Bld)0.0 %Normal0.0-6.0UnOhioHealth Dublin Methodist Hospital Comment on above:Performed By: #### [id number] ####[facility] ([facility])[address] [place], [place] [address]Fjcrmvkcyxq distribution width (RBC) [Ratio]16.2 % High11.5-15.0UnOhioHealth Dublin Methodist HospitalComment on above:Performed By: #### [id number] ####[facility] ([facility])[address] [place] [address] ERYTHROCYTE MEAN CORPUSCULAR HEMOGLOBIN CONCENTRATION (G/DL) BY NJMNKRVQW07.7 g/dLLow32.0-35.0UnOhioHealth Dublin Methodist HospitalComment on above:Performed By: #### [id number] ####[facility] ([facility])[address] [place], [place] [address]Voitfrjvrw (Bld) [Volume fraction]25.7 %Low36.0-48.0UnOhioHealth Dublin Methodist HospitalComment on above:Performed By: #### [id number] ####[facility] ([facility])[address] [place], [place] [address]Bfenyvcqfs (Bld) [Mass/Vol]7.9 g/dLLow 12.0-15.0UnOhioHealth Dublin Methodist HospitalComment on above:Performed By: #### [id number] ####[facility] ([facility])[address] [place], [place] [address]Vkmxsjtk granulocytes (Bld) [#/Vol]0.07 10*3/uLNormal0.00-0.20UnOhioHealth Dublin Methodist HospitalComment on above:Performed By: #### [id number] ####[facility] ([facility])[address] [place], [place] [address]Crhraktw granulocytes/100 WBC (Bld)0.9 %Normal0.0-1.0UnOhioHealth Dublin Methodist HospitalComment on above:Performed By: #### [id number] ####[facility] ([facility])[address] [place] [address] Lymphocytes (Bld) [#/Vol]0.46 10*3/uLLow1.20-4.00UnOhioHealth Dublin Methodist HospitalComment on above:Performed By: #### [id number] ####[facility] ([facility])[address] [place], [place] [address]Rpndkefvudm/100 WBC (Bld)6.2 %Low 20.0-45.0UnOhioHealth Dublin Methodist HospitalComment on above:Performed By: #### [id number] ####[facility] ([facility])[address] [facility] [facility] [address]FBB (RBC) [Entitic mass]27.9 hmGjlgnm56.0-33.0UnOhioHealth Dublin Methodist Hospital Comment on above:Performed By: #### [id number] ####[facility] ([facility])[address] [facility] [place] [address]EWF (RBC) [Entitic vol]90.8 bSArvzym24.0-98.0 [facility] - DublinComment on above:Performed By: #### [id number] ####[facility] ([facility])[address] [facility] [address]Mmhrpgwil (Bld) [#/Vol]0.19 10*3/uLNormal0.10-1.00UnOhioHealth Dublin Methodist HospitalComment on above:Performed By: #### [id number] ####[facility] ([facility])[address] [place] [address]Cumgvaqut/100 WBC (Bld)2.6 %Low5.0-12.0UnOhioHealth Dublin Methodist HospitalComment on above:Performed By: #### [id number] ####[facility] ([facility])[address] [place] [address]Cdmtsmuzgsc (Bld) [#/Vol]6.77 10*3/uL Normal1.60-7.60UnOhioHealth Dublin Methodist HospitalComment on above:Performed By: #### [id number] ####[facility] ([facility])[address] [place] [address] Neutrophils/100 WBC (Bld)91.1 %High40.0-72.0[facility] Comment on above:Performed By: #### [id number] ####[facility] ([facility])[address] [place] [address]FBXR (PER 100 WBCS) BY AUTOMATED COUNT0.0 %Normal0 [facility] - DublinComment on above:Performed By: #### [id number] ####[facility] ([facility])[address] [place] [address]NWCDTTRXJ (10*3/UL) IN BLOOD AUTOMATED [id number] 10*3/xZCrtycs176-120RdejhblxcoOhioHealth Dublin Methodist HospitalComment on above:Performed By: #### [id number] ####[facility] ([facility])[address] [place] [address]OLG (Bld) [#/Vol]2.83 10*6/uLLow 3.80-5.00UnOhioHealth Dublin Methodist HospitalComment on above:Performed By: #### [id number] ####[facility] ([facility])[address] [place] [address]SYR (Bld) [#/Vol]7.43 10*3/uLNormal4.00-10.60UnOhioHealth [facility] Methodist Hospital Comment on above:Performed By: #### [id number] ####[facility] ([facility])[address] [place] [address]KOCWCAFjg 16-56-7258ISHVIAVKvupioBhyyejmhiu of [facility] Medical CenterCREATININE, URINE, RANDOMon 53-45-7979Wtpvkimzxx (U) [Mass/Vol]82.0 mg/wSGwpypw72-255TqenvqwpisOhioHealth Dublin Methodist HospitalComment on above:Performed By: #### [id number] ####[facility] ([facility])[address] [place] [address]EDTFMO ACID, PLASMAon 34-25-95[address]FNVBYBE (MMOL/L) IN SER/PLAS 0.4 mmol/LLow0.5-2.2UnOhioHealth Dublin Methodist HospitalComment on above: Performed By: #### [id number] ####[facility] ([facility])[address] [place] [address]YOALNMPFWpj 64-23-8477Ubcjqhbhy [Mass/Vol]3.6 mg/dLHigh1.9-2.7 [facility] - DublinComment on above:Performed By: #### [id number] ####[facility] ([facility])[address] [place], [place] [address]BFCJFWICko 97-64-9633QAXUPHFHIhtqwbTbvspnkceq of [facility] Medical CenterNURSNOTENormal [facility] - DublinPOCT GLUCOSE METER UNSOLICITED RESULTSon 67-31-1309Elfvpcw [Mass/Vol]150 mg/lMTjuu32-926MpszxpkwqjOhioHealth Dublin Methodist HospitalComment on above:Order Comment: Waived Testing in the ED is performed under the ED CLIA certificate #[id number].Result Comment: [id number] By: #### [id number] ####[facility] ([facility])[address] [place] [address] Glucose [Mass/Vol]195 mg/hXAuki40-835RqfpwvwlgxOhioHealth Dublin Methodist HospitalComment on above:Order Comment: Waived Testing in the ED is performed under the ED CLIA certificate #[id number].Result Comment: cnwieut0Booqzduyp By: #### [id number] ####[facility])[address] [place], [place] [address]Pulmnkq [Mass/Vol]123 mg/jCFlaw72-462SgnxdtqgneOhioHealth Dublin Methodist HospitalComment on above:Order Comment: Waived Testing in the ED is performed under the ED CLIA certificate #[id number].Result Comment: bjokdmk6Vwppxkwgs By: #### [id number] ####[facility] ([facility])[address] [place], [place] [address]Orsemar [Mass/Vol]130 mg/cRAlmv21-165TuehskrbzzOhioHealth Dublin Methodist HospitalComment on above:Order Comment: Waived Testing in the ED is performed under the ED CLIA certificate #[id number].Result Comment: isvh4Txsbpumqm By: #### [id number] ####[facility] ([facility])[address] [place], [place] [address]Rkwzubk [Mass/Vol]122 mg/mMKdhu85-177FtbbuttwxaOhioHealth Dublin Methodist HospitalComment on above:Order Comment: Waived Testing in the ED is performed under the ED CLIA certificate #[id number].Result Comment: daoz9Mfqtigfej By: #### [id number] ####[facility] ([facility])[address] [place], [place] [address]URYZKV, URINE, RANDOMon 30-12-2818Bvfqqh (U) [Moles/Vol]45 mmol/LNormalUnOhioHealth Dublin Methodist HospitalComment on above:Performed By: #### [id number] ####[facility] ([facility])[address] [place], [place] [address]OJIICDRLCN WITH MICROSCOPICon 30-16-5968OQWPKCTUP, TOTAL PRESENCE IN URINENegativeNormalNegativeUnOhioHealth Dublin Methodist HospitalComment on above:Performed By: #### [id number] ####[facility] ([facility])[address] [place], [place] [address]Manrvov (U)CloudyAbnormal ClearUnOhioHealth Dublin Methodist HospitalComment on above:Performed By: #### [id number] ####[facility] ([facility])[address] [place], [place] [address]Swrdz (U)YellowNormalColorless, Yellow, Light-YellowUnOhioHealth Dublin Methodist HospitalComment on above:Performed By: #### [id number] ####[facility])[address] [place], [place] [address]VUODUOG (MG/DL) IN URINENormalNormal NormalUnOhioHealth Dublin Methodist HospitalComment on above:Performed By: #### [id number] ####[facility])[address] [place] [address] HEMOGLOBIN PRESENCE IN URINEModerateAbnormalNegativeUnOhioHealth Dublin Methodist HospitalComment on above:Performed By: #### [id number] ####[facility] ([facility])[address] [place], [place] [address]Flkecch Ql (U)TraceAbnormalNegative [facility] - DublinComment on above:Performed By: #### [id number] ####[facility] ([facility])[address] [place], [place] [address]ZTFOZUQXX ESTERASE PRESENCE IN URINE BY TEST STRIPNegativeNormalNegativeUnOhioHealth Dublin Methodist HospitalComment on above:Performed By: #### [id number] ####[facility])[address] [place], [place] [address]UGUDK (#/LPF) IN URINE SEDIMENTOccasionalNormalNone Seen, Occasional, FewUnOhioHealth Dublin Methodist HospitalComment on above:Performed By: #### [id number] ####[facility] ([facility])[address] [place], [place] [address]ZYTLDLR PRESENCE IN URINENegative NormalNegativeUnOhioHealth Dublin Methodist HospitalComment on above:Performed By: #### [id number] ####[facility] ([facility])[address] [place], [place] [address]fK (U)5.5 [pH]Normal5.0-8.0UnOhioHealth Dublin Methodist HospitalComment on above: Performed By: #### [id number] ####[facility] ([facility])[address] [place] [address]Opwjlel (U) [Mass/Vol]30 mg/dLAbnormalNegativeSelect Medical OhioHealth Rehabilitation Hospital - DublinComment on above:Performed By: #### [id number] ####[facility] ([facility])[address] [place] [address]VUH (#/HPF) IN URINE SEDIMENT>20AbnormalNone Seen, 0-2UnOhioHealth Dublin Methodist HospitalComment on above:Performed By: #### [id number] ####[facility] ([facility])[address] [place] [address]Jiviivxe gravity (U) [Rel density]>1.065Szxf6.010-1.030 [facility] - DublinComment on above:Performed By: #### [id number] ####[facility] ([facility])[address] [place], [place] [address]OUJUBOKV EPITHELIAL CELLS (#/LPF) IN URINE SEDIMENTOccasionalNormalNone Seen, Occasional, FewUnOhioHealth Dublin Methodist HospitalComment on above:Performed By: #### [id number] ####[facility] ([facility])[address] [place] [address] UROBILINOGEN (MG/DL) IN URINENormalNormalNormalUniSalem Regional Medical CenterComment on above:Performed By: #### [id number] ####[facility] ([facility])[address] [place], [place] [address]HTZ (LEUKOCYTE) (#/HPF) IN URINE SEDIMENT6-10AbnormalNone Seen, 0-2[facility] - DublinComment on above:Performed By: #### [id number] ####[facility] ([facility])[address] [place] [address]ez 27-14-736782XcnkjnYwhzxazqea of [place] [facility] Cuizux34 NormalUnOhioHealth Dublin Methodist HospitalANESon 62-84-3699VLVOXzlrvnVdnfgougak of [place] Medical CenterBASIC METABOLIC PANELon 54-25-95[address]Xpvni gap [Moles/Vol] 13 mmol/LNormal7-20UnOhioHealth Dublin Methodist HospitalComment on above:Performed By: #### [id number] ####[facility] ([facility])[address] [place] [address] Calcium [Mass/Vol]8.1 mg/dLLow8.6-10.3UnOhioHealth Dublin Methodist HospitalComment on above:Performed By: #### [id number] ####[facility] ([facility])[address] [place], [place] [address]Ruvhgdec [Moles/Vol]95 mmol/KEth60-858SmougppmvbOhioHealth Dublin Methodist HospitalComment on above:Performed By: #### [id number] ####[facility] ([facility])[address] [place], [place] [address]DG2 [Moles/Vol]32 mmol/NNnlg86-58 [facility] - DublinComment on above:Performed By: #### [id number] ####[facility] ([facility])[address] [place], [place] [address]Rcdwclvxqo [Mass/Vol]2.79 mg/dLHigh0.60-1.20UnOhioHealth Dublin Methodist HospitalComment on above:Performed By: #### [id number] ####[facility] ([facility])[address] [place], [place] [address]BZQLFMFJQZ FILTRATION RATE ML/MIN/1.73 SQ M.IEAQBKPRN08.6 mL/min/1.73m*2Low>60.0UnOhioHealth Dublin Methodist HospitalComment on above:Result Comment: The [facility]???s estimated glomerular filtration rate (eGFR) will no [...] anyone group of individuals.Performed By: #### [id number] ####[facility] ([facility])[address] [place] [address]Crxuech [Mass/Vol]95 mg/ePKkidkm57-579VmxhcnvfbbOhioHealth Dublin Methodist HospitalComment on above:Performed By: #### [id number] ####[facility] ([facility])[address] [place] [address]Lnjztemwt [Moles/Vol]3.6 mmol/LNormal3.5-5.1UnOhioHealth Dublin Methodist HospitalComment on above:Performed By: #### [id number] ####[facility] ([facility])[address] [place] [address] Sodium [Moles/Vol]136 mmol/PGpzkcd359-418OeitzdsazvOhioHealth Dublin Methodist Hospital Comment on above:Performed By: #### [id number] ####[facility] ([facility])[address] [place] [address]Trtz nitrogen [Mass/Vol]29 mg/dLHigh7-25UnOhioHealth Dublin Methodist HospitalComment on above:Performed By: #### [id number] ####[facility] ([facility])[address] [place] [address]QUHR NITROGEN/CREATININE (MASS RATIO) IN SER/PLAS10.4NormalUniversKettering Health HamiltonComment on above:Performed By: #### [id number] ####[facility] ([facility])[address] [place] [address]TQV WITH AUTO DIFFERENTIALon 68-07-2570Idzztobup (Bld) [#/Vol]0.02 10*3/uLNormal0.00-0.20UnOhioHealth Dublin Methodist HospitalComment on above:Performed By: #### [id number] ####[facility] ([facility])[address] [place] [address]Cpersrqtv/100 WBC (Bld)0.3 %Normal0.0-1.0UnOhioHealth Dublin Methodist HospitalComment on above:Performed By: #### [id number] ####[facility] ([facility])[address] [place], [place] [address]Mydthoyfewv (Bld) [#/Vol]0.30 10*3/uL Normal0.00-0.50UnOhioHealth Dublin Methodist HospitalComment on above:Performed By: #### [id number] ####[facility] ([facility])[address] [place] [address] Eosinophils/100 WBC (Bld)4.0 %Normal0.0-6.0UnOhioHealth Dublin Methodist Hospital Comment on above:Performed By: #### [id number] ####[facility] ([facility])[address] [place], [place] [address]Obdajsuyetu distribution width (RBC) [Ratio]16.3 % High11.5-15.0UnOhioHealth Dublin Methodist HospitalComment on above:Performed By: #### [id number] ####[facility] ([facility])[address] [place] [address] ERYTHROCYTE MEAN CORPUSCULAR HEMOGLOBIN CONCENTRATION (G/DL) BY EYFWAZBOA40.2 g/dLLow32.0-35.0UnOhioHealth Dublin Methodist HospitalComment on above:Performed By: #### [id number] ####[facility] ([facility])[address] [place], [place] [address]Spazuujsrz (Bld) [Volume fraction]24.8 %Low36.0-48.0UnOhioHealth Dublin Methodist HospitalComment on above:Performed By: #### [id number] ####[facility] ([facility])[address] [place], [place] [address]Qviqirhiyj (Bld) [Mass/Vol]7.5 g/dLLow 12.0-15.0UnOhioHealth Dublin Methodist HospitalComment on above:Performed By: #### [id number] ####[facility] ([facility])[address] [place], [place] [address]Foobsxxu granulocytes (Bld) [#/Vol]0.04 10*3/uLNormal0.00-0.20UnOhioHealth Dublin Methodist HospitalComment on above:Performed By: #### [id number] ####[facility] ([facility])[address] [facility] [facility] [place] [address]Qhvlafpu granulocytes/100 WBC (Bld)0.5 %Normal0.0-1.0UnOhioHealth Dublin Methodist HospitalComment on above:Performed By: #### [id number] ####[facility] ([facility])[address] [place] [address] Lymphocytes (Bld) [#/Vol]0.58 10*3/uLLow1.20-4.00UnOhioHealth Dublin Methodist HospitalComment on above:Performed By: #### [id number] ####[facility] ([facility])[address] [facility] [address]Mgstlzdbreq/100 WBC (Bld)7.7 %Low 20.0-45.0UnOhioHealth Dublin Methodist HospitalComment on above:Performed By: #### [id number] ####[facility] ([facility])[address] [facility] [place], [place] [address]KYM (RBC) [Entitic mass]27.4 xfCwhrrj36.0-33.0UnOhioHealth Dublin Methodist Hospital Comment on above:Performed By: #### [id number] ####[facility] ([facility])[address] [place], [place] [address]QKP (RBC) [Entitic vol]90.5 oCBdkrhl65.0-98.0 [facility] - DublinComment on above:Performed By: #### [id number] ####[facility] [facility] [facility] [address]Mujsuyika (Bld) [#/Vol]0.52 10*3/uLNormal0.10-1.00UnOhioHealth Dublin Methodist HospitalComment on above:Performed By: #### [id number] ####[facility] ([facility])[address] [place], [place] [address]Bwumydacn/100 WBC (Bld)6.9 %Normal5.0-12.0UnOhioHealth Dublin Methodist HospitalComment on above:Performed By: #### [id number] ####[facility] ([facility])[address] [place] [address]Lohkmodbkkq (Bld) [#/Vol] 6.03 10*3/uLNormal1.60-7.60UnOhioHealth Dublin Methodist HospitalComment on above: Performed By: #### [id number] ####[facility] ([facility])[address] [place] [address]Lmpeccrgluj/100 WBC (Bld)80.6 %High40.0-72.0UnOhioHealth Dublin Methodist HospitalComment on above:Performed By: #### [id number] ####[facility] ([facility])[address] [place] [address]IFGN (PER 100 WBCS) BY AUTOMATED COUNT0.0 %Khoobr4OwedwbdcteOhioHealth Dublin Methodist HospitalComment on above: Performed By: #### [id number] ####[facility] ([facility])[address] [place] [address]XTSQATKRR (10*3/UL) IN BLOOD AUTOMATED AXEPM247 10*3/uLNormal 150-400UnOhioHealth Dublin Methodist HospitalComment on above:Performed By: #### [id number] ####[facility] ([facility])[address] [place] [address]MXG (Bld) [#/Vol]2.74 10*6/uLLow3.80-5.00UnOhioHealth Dublin Methodist HospitalComment on above:Performed By: #### [id number] ####[facility] ([facility])[address] [place] [address]YOV (Bld) [#/Vol]7.49 10*3/uLNormal4.00-10.60UnOhioHealth Dublin Methodist HospitalComment on above:Performed By: #### [id number] ####[facility] ([facility])[address] [place] [address]EOUJMYZrh 02-05-2024 CONSULTNormalUniversity Fort Hamilton HospitalHPon 66-42-9094MLX&P reviewed. The patient was examined and there are no changes to the H&P.NormalUnOhioHealth Dublin Methodist HospitalMAGNESIUMon 66-67-4315Vwmzmxkkb [Mass/Vol]3.6 mg/dLHigh 1.9-2.7UnOhioHealth Dublin Methodist HospitalComment on above:Performed By: #### [id number] ####[facility] ([facility])[address] [place], [place] [address]NS BRAIN WO CONTRASTon 16-15-5889WG BRAIN WO CONTRASTInvalid Interpretation Code [facility] - DublinNURSNOTEon 34-57-0294IPZSFTLIFuxykjAapuwcpmbe of [place] Medical CenterNURSNOTEReport called to Kayleigh MELGAR all questions answered.NormalUnOhioHealth Dublin Methodist HospitalOPNOTEon 70-30-0527NGDFWP [facility] HospitalPOCT GLUCOSE METER UNSOLICITED RESULTS on 39-92-0159Cvmchjy [Mass/Vol]117 mg/bJQhaf54-833VblljyycgjOhioHealth Dublin Methodist HospitalComment on above:Order Comment: Waived Testing in the ED is performed under the ED CLIA certificate #[id number].Result Comment: qnby7Fhrobkbrq By: #### [id number] ####[facility] ([facility])[address] [place] [address] Glucose [Mass/Vol]102 mg/rVDtadgk06-736JtfqnxbrovOhioHealth Dublin Methodist Hospital Comment on above:Order Comment: Waived Testing in the ED is performed under the ED CLIA certificate #[id number].Result Comment: leulerPerformed By: #### [id number] ####[facility] ([facility])[address] [place], [place] [address]Ynsuhue [Mass/Vol]100 mg/jULcumlh99-842SaulisboaeOhioHealth Dublin Methodist HospitalComment on above:Order Comment: Waived Testing in the ED is performed under the ED CLIA certificate #[id number].Result Comment: svandygPerformed By: #### [id number] ####[facility] ([facility])[address] [place], [place] [address]Cjanktg [Mass/Vol]114 mg/oCUiwv79-875KjctizcqomOhioHealth Dublin Methodist HospitalComment on above:Order Comment: Waived Testing in the ED is performed under the ED CLIA certificate #[id number].Result Comment: agoettiPerformed By: #### [id number] ####[facility] ([facility])[address] [place] [address]EVOQex 93-63-9960AVABNxrchpAekqbmkews of [place] Medical CenterANTI-XA (HEPARIN LEVEL)on 22-22-1221DTDGQXY UNFRACTIONATED (U/ML) IN PPP BY CHROMOGENIC METHOD>1.00 Critically high0.3-0.7UnOhioHealth Dublin Methodist HospitalComment on above:Result Comment: Rivaroxaban and Apixaban will interfere with the anti Xa assay used to monitor UFH and LMWH.Performed By: #### [id number] ####[facility] ([facility])[address] [place] [address]VIEHky 54-01-5297PQOQOAUYN PARTIAL THROMBOPLASTIN TIME IN PPP BY COAGULATION ASSAY45.7 ZknpplqToks86.0-35.0 [facility] - DublinComment on above:Order Comment: Check aPTT every 6 hours while on heparin infusion, or per protocol.Result Comment: Clinical significance of the APTT is questionable in the presence of heparin. Performed By: #### [id number] ####[facility] ([facility])[address] [place] [address]AFIDOLAOU PARTIAL THROMBOPLASTIN TIME IN PPP BY COAGULATION ASSAY40.3 AdcyuquYxzw85.0-35.0UnOhioHealth Dublin Methodist HospitalComment on above:Order Comment: Check aPTT every 6 hours while on heparin infusion, or per protocol.Result Comment: Clinical significance of the APTT is questionable in the presence of heparin.Performed By: #### [id number] ####[facility] ([facility])[address] [place], [place] [address]SLHRR METABOLIC PANELon 02-04-2024 Anion gap [Moles/Vol]15 mmol/LNormal7-20UnOhioHealth Dublin Methodist Hospital Comment on above:Performed By: #### [id number] ####[facility] ([facility])[address] [place] [address]Ghoqclw [Mass/Vol]8.0 mg/dLLow8.6-10.3UnOhioHealth Dublin Methodist HospitalComment on above:Performed By: #### [id number] ####[facility] ([facility])[address] [place] [address]Llawcedp [Moles/Vol]96 mmol/GJmk35-920EkfqkjctwmOhioHealth Dublin Methodist HospitalComment on above:Performed By: #### [id number] ####[facility] ([facility])[address] [place] [address]NU6 [Moles/Vol]29 mmol/JQunjys82-30GrsxjjkgyzOhioHealth Dublin Methodist HospitalComment on above:Performed By: #### [id number] ####[facility] ([facility])[address] [place] [address]Luupizojun [Mass/Vol]1.87 mg/dLHigh0.60-1.20UnOhioHealth Dublin Methodist HospitalComment on above:Performed By: #### [id number] ####[facility] ([facility])[address] [place] [address]XLPXXKYMLN FILTRATION RATE ML/MIN/1.73 SQ M.IPDFSTYCD41.9 mL/min/1.73m*2Low>60.0UnOhioHealth Dublin Methodist HospitalComment on above:Result Comment: The [facility]???s estimated glomerular filtration rate (eGFR) will no [...] anyone group of individuals.Performed By: #### [id number] ####[facility] ([facility])[address] [place] [address]Xyioglz [Mass/Vol]95 mg/hBValuix82-838WpedecsfgsOhioHealth Dublin Methodist HospitalComment on above:Performed By: #### [id number] ####[facility] ([facility])[address] [place], [place] [address]Eexfsnafw [Moles/Vol]4.0 mmol/LNormal3.5-5.1UnOhioHealth Dublin Methodist HospitalComment on above:Performed By: #### [id number] ####[facility])[address] [place] [place] [address]Nyrcnc [Moles/Vol]136 mmol/L Hghius421-968TrloibufsxOhioHealth Dublin Methodist HospitalComment on above:Performed By: #### [id number] ####[facility])[address] [place], [place] [address]Gfpj nitrogen [Mass/Vol]24 mg/dLNormal7-25UnOhioHealth Dublin Methodist HospitalComment on above:Performed By: #### [id number] ####[facility])[address] [place], [place] [address]PIHR NITROGEN/CREATININE (MASS RATIO) IN SER/PLAS12.8Normal [facility] - DublinComment on above:Performed By: #### [id number] ####[facility])[address] [place], [place] [address]KHQ WITH AUTO DIFFERENTIALon 13-33-6467Ypshehvxf (Bld) [#/Vol]0.02 10*3/uLNormal0.00-0.20 [facility] - DublinComment on above:Performed By: #### [id number] ####[facility])[address] [place], [place] [address]Nazhdqtee/100 WBC (Bld)0.2 %Normal0.0-1.0UnOhioHealth Dublin Methodist HospitalComment on above: Performed By: #### [id number] ####[facility])[address] [place], [place] [address]Qbakcxiexkq (Bld) [#/Vol]0.18 10*3/uLNormal0.00-0.50 [facility] - DublinComment on above:Performed By: #### [id number] ####[facility] ([facility])[address] [place], [place] [address]Vrwxumoevnd/100 WBC (Bld)2.2 %Normal0.0-6.0UnOhioHealth Dublin Methodist HospitalComment on above: Performed By: #### [id number] ####[facility])[address] [place], [place] [address]Ogdzqjpcjcd distribution width (RBC) [Ratio]16.1 %High 11.5-15.0UnOhioHealth Dublin Methodist HospitalComment on above:Performed By: #### [id number] ####[facility])[address] [place] [address] ERYTHROCYTE MEAN CORPUSCULAR HEMOGLOBIN CONCENTRATION (G/DL) BY KIQJKHWZT97.4 g/dLLow32.0-35.0UnOhioHealth Dublin Methodist HospitalComment on above:Performed By: #### [id number] ####[facility] ([facility])[address] [place], [place] [address]Rhuacyxgsv (Bld) [Volume fraction]28.0 %Low36.0-48.0UnOhioHealth Dublin Methodist HospitalComment on above:Performed By: #### [id number] ####[facility])[address] [place], [place] [address]Owajkcbwmd (Bld) [Mass/Vol]8.8 g/dLLow 12.0-15.0UnOhioHealth Dublin Methodist HospitalComment on above:Performed By: #### [id number] ####[facility] ([facility])[address] [place], [place] [address]Dlvskpze granulocytes (Bld) [#/Vol]0.04 10*3/uLNormal0.00-0.20UnOhioHealth Dublin Methodist HospitalComment on above:Performed By: #### [id number] ####[facility] ([facility])[address] [place], [place] [address]Yalbcbez granulocytes/100 WBC (Bld)0.5 %Normal0.0-1.0UnOhioHealth Dublin Methodist HospitalComment on above:Performed By: #### [id number] ####[facility])[address] [place] [address] Lymphocytes (Bld) [#/Vol]0.52 10*3/uLLow1.20-4.00UnOhioHealth Dublin Methodist HospitalComment on above:Performed By: #### [id number] ####[facility])[address] [place], [place] [address]Eanznnbicwm/100 WBC (Bld)6.5 %Low 20.0-45.0UnOhioHealth Dublin Methodist HospitalComment on above:Performed By: #### [id number] ####[facility])[address] [place], [place] [address]JKB (RBC) [Entitic mass]28.3 dfUfpmdf48.0-33.0UnOhioHealth Dublin Methodist Hospital Comment on above:Performed By: #### [id number] ####[facility])[address] [place], [place] [address]AIA (RBC) [Entitic vol]90.0 kIAqsade66.0-98.0 [facility] - DublinComment on above:Performed By: #### [id number] ####[facility])[address] [place], [place] [address]Gffesvgei (Bld) [#/Vol]0.65 10*3/uLNormal0.10-1.00UnOhioHealth Dublin Methodist HospitalComment on above:Performed By: #### [id number] ####[facility])[address] [place], [place] [address]Sdvykgxru/100 WBC (Bld)8.1 %Normal5.0-12.0UnOhioHealth Dublin Methodist HospitalComment on above:Performed By: #### [id number] ####[facility])[address] [facility] [place] [address]Vlymsrnswro (Bld) [#/Vol] 6.61 10*3/uLNormal1.60-7.60UnOhioHealth Dublin Methodist HospitalComment on above: Performed By: #### [id number] ####[facility])[address] [place] [address]Ddekwqpppyz/100 WBC (Bld)82.5 %High40.0-72.0UnOhioHealth Dublin Methodist HospitalComment on above:Performed By: #### [id number] ####[facility])[address] [place] [address]AWUZ (PER 100 WBCS) BY AUTOMATED COUNT0.0 %Wyljpj7HnejolauktOhioHealth Dublin Methodist HospitalComment on above: Performed By: #### [id number] ####[facility])[address] [place] [address]WGDTBHMQF (10*3/UL) IN BLOOD AUTOMATED [id number] 10*3/uLNormal 150-400UnOhioHealth Dublin Methodist HospitalComment on above:Performed By: #### [id number] ####[facility] ([facility])[address] [place] [address]FDK (Bld) [#/Vol]3.11 10*6/uLLow3.80-5.00UnOhioHealth Dublin Methodist HospitalComment on above:Performed By: #### [id number] ####[facility])[address] [place] [address]DDO (Bld) [#/Vol]8.02 10*3/uLNormal4.00-10.60UnOhioHealth Dublin Methodist HospitalComment on above:Performed By: #### [id number] ####[facility])[address] [place], [place] [address]YM BRAIN PERFUSIONon 82-42-4425XL BRAIN PERFUSIONInvalid Interpretation CodeSelect Medical [facility] Rehabilitation Hospital - DublinCT HEAD WO IV CONTRASTon 91-32-3866WH HEAD WO IV CONTRASTNormal [facility] - DublinCTA HEAD W IV CONTRASTon 20-53-8236CNX HEAD W IV CONTRASTNormalUniversKettering Health HamiltonCTA NECK W IV CONTRASTon 04-55-1370BGO NECK W IV CONTRASTInvalid Interpretation CodeUnOhioHealth Dublin Methodist HospitalMAGNESIUMon 01-98-7199Wgxlmumeq [Mass/Vol]3.1 mg/dLHigh1.9-2.7 [facility] Hospital - DublinComment on above:Performed By: #### [id number] ####[facility])[address] [place] [address]NTEI GLUCOSE METER UNSOLICITED RESULTSon 35-60-4152Onmeifk [Mass/Vol]172 mg/rOMruk48-361 [facility] Hospital - DublinComment on above:Order Comment: Waived Testing in the ED is performed under the ED CLIA certificate #[id number].Result Comment: sbexyjc9Fbjfgygmo By: #### [id number] ####[facility] ([facility])[address] [place] [address]Xlvrovb [Mass/Vol]113 mg/gGHeds40-280GychbmyklwOhioHealth Dublin Methodist HospitalComment on above:Order Comment: Waived Testing in the ED is performed under the ED CLIA certificate #[id number].Result Comment: ezabors2 Performed By: #### [id number] ####[facility])[address] [place], [place] [address]IPPZIW BLOOD GAS WITH IONIZED CALCIUMon 20-03-0178Mvtv excess Calc (BldV) [Moles/Vol]10.1 mmol/LNormalUnOhioHealth Dublin Methodist Hospital Comment on above:Performed By: #### [id number] ####[facility] [id number] [place] [address] USACALCIUM IONIZED (MMOL/L) IN BLOOD1.18 mmol/L Normal1.15-1.33UnOhioHealth Dublin Methodist HospitalComment on above:Performed By: #### [id number] ####[facility] [id number] [place] [address] [place] CO2 (BldV) [Partial pressure]62 mm[Hg]Vttt16-66WpkxjuaixkOhioHealth Dublin Methodist HospitalComment on above:Performed By: #### [id number] ####[facility] [id number] [place] [address] USAHCO3 (Bld) [Moles/Vol]37.5 mmol/L NormalUnOhioHealth Dublin Methodist HospitalComment on above:Performed By: #### [id number] ####[facility] [id number] [place] [address] USAOxygen (BldV) [Partial pressure]49 mm[Hg]Mssi76-87YbqpsdilxeOhioHealth Dublin Methodist Hospital Comment on above:Performed By: #### [id number] ####[facility] [id number] [place] [address] USAOXYGEN SATURATION (%) IN VENOUS BLOOD79.9 %High 65.0-75.0UnOhioHealth Dublin Methodist HospitalComment on above:Performed By: #### [id number] ####[facility] [id number] [place] [address] USAPH OF VENOUS BLOOD7.87Iperqw8.31-7.41UnOhioHealth Dublin Methodist HospitalComment on above:Performed By: #### [id number] ####[facility] [id number] [place] [address] SUY71nf 51-30-585084DivztqIzlmfsfidc of [place] [facility] Wfskko66WajzbfIkednjgucwKettering Health HamiltonAPTUnited States Air Force [facility] 15-43-8103WLEJVITYI PARTIAL THROMBOPLASTIN TIME IN PPP BY COAGULATION ASSAY91.2 TzfqvwaLxem68.0-35.0 [facility] Hospital - DublinComment on above:Order Comment: Check aPTT every 6 hours while on heparin infusion, or per protocol.Result Comment: Clinical significance of the APTT is questionable in the presence of heparin. Performed By: #### [id number] ####[facility] ([facility])[address] [place], [place] [address]LDCUYGPW BLOOD GAS WITH CO-OXIMETRYon 03-17-1487Sqct excess Calc (Bld) [Moles/Vol]8.6 mmol/LHigh-2.0-3.0UnOhioHealth [facility] Methodist Hospital Comment on above:Performed By: #### [id number] ####[facility] [id number] [place] [address] USACARBOXYHEMOGLOBIN/HEMOGLOBIN TOTAL % IN BLOOD 1.6 %Normal0.0-3.0UnOhioHealth Dublin Methodist HospitalComment on above:Performed By: #### [id number] ####[facility] [id number] [place] [address] USACO2 (Bld) [Partial pressure]47 mm[Hg]Duifma42-47JicixxusiwOhioHealth Dublin Methodist HospitalComment on above:Performed By: #### [id number] ####[facility] [id number] [place] [address] USADEOXYGENATED HEMOGLOBIN IN BLOOD2.3 %Normal1-5UnOhioHealth Dublin Methodist HospitalComment on above:Performed By: #### [id number] ####[facility] [id number] [place] [address] [place] HCO3 (Bld) [Moles/Vol]33.4 mmol/LHigh21.0-28.0UnOhioHealth Dublin Methodist HospitalComment on above:Performed By: #### [id number] ####[facility] [id number] [place] [address] USAHemoglobin (Bld) [Mass/Vol]9.4 g/dL Low11.7-17.4UnOhioHealth Dublin Methodist HospitalComment on above:Performed By: #### [id number] ####[facility] [id number] [place] [address] [place] RWZ3EbfkabTlilmjafayKettering Health HamiltonComment on above:Performed By: #### [id number] ####[facility] [id number] [place] [address] [place] METHEMOGLOBIN/100 IN BLOOD0.5 %Normal0.0-1.5UnOhioHealth [facility] Methodist Hospital Comment on above:Performed By: #### [id number] ####[facility] [id number] [place] [address] USAOxygen (Bld) [Partial pressure]72 mm[Hg]Low 83-100UnOhioHealth Dublin Methodist HospitalComment on above:Performed By: #### [id number] ####[facility] [id number] [place] [address] USAOXYGEN SATURATION (%) IN ARTERIAL BLOOD97.7 %Sfdulp20.0-98.0UnOhioHealth Dublin Methodist HospitalComment on above:Performed By: #### [id number] ####[facility] [id number] [place] [address] USAOXYGENATED HEMOGLOBIN IN BLOOD95.7 %High90.0-95.0UnOhioHealth Dublin Methodist HospitalComment on above:Performed By: #### [id number] ####[facility] [id number] [place] [address] [place] pH (Bld)7.46 [pH]High7.35-7.45UnOhioHealth Dublin Methodist HospitalComment on above:Performed By: #### [id number] ####[facility] [id number] [place] [address] USASOURCE OF OXYGENNasal cannulaNormalUniversity Fort Hamilton HospitalComment on above:Performed By: #### [id number] ####[facility] [id number] [place] [address] USABASIC METABOLIC PANELon 02-03-2024 Anion gap [Moles/Vol]14 mmol/LNormal7-20UnOhioHealth [facility] Methodist Hospital Comment on above:Performed By: #### [id number] ####[facility] ([facility])[address] [place], [place] [address]Mtonzzr [Mass/Vol]8.3 mg/dLLow8.6-10.3UnOhioHealth Dublin Methodist HospitalComment on above:Performed By: #### [id number] ####[facility] ([facility])[address] [place], [place] [address]Tcmapnfy [Moles/Vol]94 mmol/URhk90-975OrzzeytkctOhioHealth Dublin Methodist HospitalComment on above:Performed By: #### [id number] ####[facility] ([facility])[address] [place], [place] [address]CE6 [Moles/Vol]31 mmol/ZAhniah80-67GeriddehvlOhioHealth Dublin Methodist HospitalComment on above:Performed By: #### [id number] ####[facility] ([facility])[address] [place], [place] [address]Aitikeungp [Mass/Vol]1.51 mg/dLHigh0.60-1.20UnOhioHealth Dublin Methodist HospitalComment on above:Performed By: #### [id number] ####[facility])[address] [place] [address]DQVQFTJUHF FILTRATION RATE ML/MIN/1.73 SQ M.SRTLSRTJL60.7 mL/min/1.73m*2Low>60.0UnOhioHealth Dublin Methodist HospitalComment on above:Result Comment: The [facility]???s estimated glomerular filtration rate (eGFR) will no [...] anyone group of individuals.Performed By: #### [id number] ####[facility] ([facility])[address] [place] [address]Vkkmlbe [Mass/Vol]155 mg/lQXuge61-539DeempkyxntOhioHealth Dublin Methodist HospitalComment on above:Performed By: #### [id number] ####[facility] ([facility])[address] [place] [address]Hnkimoslo [Moles/Vol]4.0 mmol/LNormal3.5-5.1UnOhioHealth Dublin Methodist HospitalComment on above:Performed By: #### [id number] ####[facility] ([facility])[address] [place] [address]Rnkfnh [Moles/Vol]135 mmol/LLow 136-145UnOhioHealth Dublin Methodist HospitalComment on above:Performed By: #### [id number] ####[facility] ([facility])[address] [place], [place] [address]Qpxo nitrogen [Mass/Vol]19 mg/dLNormal7-25UnOhioHealth [facility] Methodist HospitalComment on above:Performed By: #### [id number] ####[facility] ([facility])[address] [place], [place] [address]NRHH NITROGEN/CREATININE (MASS RATIO) IN SER/PLAS12.6Normal [facility] - DublinComment on above:Performed By: #### [id number] ####[facility] ([facility])[address] [place], [place] [address]Qszlu gap [Moles/Vol]18 mmol/LNormal7-20UnOhioHealth Dublin Methodist HospitalComment on above:Performed By: #### [id number] ####[facility] ([facility])[address] [place], [place] [address]Cgtqkxj [Mass/Vol]9.0 mg/dLNormal8.6-10.3UnOhioHealth Dublin Methodist HospitalComment on above:Performed By: #### [id number] ####[facility] ([facility])[address] [place], [place] [address]Dltzgpnd [Moles/Vol]96 mmol/JRfn41-039 [facility] - DublinComment on above:Performed By: #### [id number] ####[facility] ([facility])[address] [place], [place] [address]BU7 [Moles/Vol] 26 mmol/SMclfaf77-11TzeyssjijyOhioHealth Dublin Methodist HospitalComment on above: Performed By: #### [id number] ####REHABILITATION [facility])[address] [place], [place] [address]Hrrbwyneog [Mass/Vol]1.55 mg/dLHigh0.60-1.20UnOhioHealth Dublin Methodist HospitalComment on above:Performed By: #### [id number] ####[facility])[address] [place], [place] [address]IWZISCLUUL FILTRATION RATE ML/MIN/1.73 SQ M.BNPOSQOWY45.7 mL/min/1.73m*2Low>60.0UnOhioHealth Dublin Methodist Hospital Comment on above:Result Comment: The [facility]???s estimated glomerular filtration rate (eGFR) will no [...] anyone group of individuals.Performed By: #### [id number] ####[facility])[address] [facility] [place] [address]Scddbpx [Mass/Vol]90 mg/yMJstgsl56-446XslzhqpnyiOhioHealth Dublin Methodist HospitalComment on above:Performed By: #### [id number] ####[facility])[address] [facility] [place] [address]Hmdrtegae [Moles/Vol]4.6 mmol/LNormal3.5-5.1UnOhioHealth Dublin Methodist HospitalComment on above:Performed By: #### [id number] ####[facility])[address] [facility] [place] [address]Svubtt [Moles/Vol]135 mmol/LLow 136-145UnOhioHealth Dublin Methodist HospitalComment on above:Performed By: #### [id number] ####[facility])[address] [facility] [address]Lhgr nitrogen [Mass/Vol]20 mg/dLNormal7-25UnOhioHealth Dublin Methodist HospitalComment on above:Performed By: #### [id number] ####[facility])[address] [facility] [place] [address]ZPFF NITROGEN/CREATININE (MASS RATIO) IN SER/PLAS12.9Normal [facility] - DublinComment on above:Performed By: #### [id number] ####[facility])[address] [facility] [place], [place] [address]JIYXJDD, IONIZED on [id number] IONIZED (MMOL/L) IN BLOOD1.13 mmol/LLow1.15-1.33UnOhioHealth Dublin Methodist HospitalComment on above:Performed By: #### CALCIUM, IONIZED ####[facility] RESPIRATORY [id number] [place] [address] USACBC WITH AUTO DIFFERENTIALon 22-89-8913Eteqdtjnl (Bld) [#/Vol]0.02 10*3/uLNormal0.00-0.20 [facility] - DublinComment on above:Performed By: #### [id number] ####[facility] ([facility])[address] [place] [address]Qnotogoli/100 WBC (Bld)0.3 %Normal0.0-1.0UnOhioHealth Dublin Methodist HospitalComment on above: Performed By: #### [id number] ####[facility] ([facility])[address] [place] [address]Ryiwzabiiyp (Bld) [#/Vol]0.22 10*3/uLNormal0.00-0.50 [facility] - DublinComment on above:Performed By: #### [id number] ####[facility])[address] [place], [place] [address]Vbfjaqwhhiu/100 WBC (Bld)3.4 %Normal0.0-6.0UnOhioHealth Dublin Methodist HospitalComment on above: Performed By: #### [id number] ####[facility])[address] [place], [place] [address]Hpkgjgvjwcf distribution width (RBC) [Ratio]16.0 %High 11.5-15.0UnOhioHealth Dublin Methodist HospitalComment on above:Performed By: #### [id number] ####[facility] ([facility])[address] [place] [address] ERYTHROCYTE MEAN CORPUSCULAR HEMOGLOBIN CONCENTRATION (G/DL) BY GGKBWIUXI38.5 g/dLLow32.0-35.0UnOhioHealth Dublin Methodist HospitalComment on above:Performed By: #### [id number] ####[facility] ([facility])[address] [place] [address]Npfxjplkcy (Bld) [Volume fraction]26.6 %Low36.0-48.0UnOhioHealth Dublin Methodist HospitalComment on above:Performed By: #### [id number] ####[facility] ([facility])[address] [place], [place] [address]Fgzfkaxsjd (Bld) [Mass/Vol]8.1 g/dLLow 12.0-15.0UnOhioHealth Dublin Methodist HospitalComment on above:Performed By: #### [id number] ####[facility] ([facility])[address] [place], [place] [address]Sspwadwo granulocytes (Bld) [#/Vol]0.05 10*3/uLNormal0.00-0.20UnOhioHealth Dublin Methodist HospitalComment on above:Performed By: #### [id number] ####[facility] ([facility])[address] [place], [place] [address]Vwsnifrc granulocytes/100 WBC (Bld)0.8 %Normal0.0-1.0UnOhioHealth Dublin Methodist HospitalComment on above:Performed By: #### [id number] ####[facility] ([facility])[address] [place] [address] Lymphocytes (Bld) [#/Vol]0.45 10*3/uLLow1.20-4.00UnOhioHealth Dublin Methodist HospitalComment on above:Performed By: #### [id number] ####[facility] ([facility])[address] [place], [place] [address]Yjdfrksrggz/100 WBC (Bld)6.9 %Low 20.0-45.0UnOhioHealth Dublin Methodist HospitalComment on above:Performed By: #### [id number] ####[facility] ([facility])[address] [place], [place] [address]JZT (RBC) [Entitic mass]27.9 ziIcaemy86.0-33.0UnOhioHealth [facility] Methodist Hospital Comment on above:Performed By: #### [id number] ####[facility])[address] [place], [place] [address]YNI (RBC) [Entitic vol]91.7 wHNzlbkn64.0-98.0 [facility] - DublinComment on above:Performed By: #### [id number] ####[facility])[address] [place] [address]Oefjxqrfm (Bld) [#/Vol]0.46 10*3/uLNormal0.10-1.00UnOhioHealth Dublin Methodist HospitalComment on above:Performed By: #### [id number] ####[facility] ([facility])[address] [place] [address]Vojjpimvq/100 WBC (Bld)7.1 %Normal5.0-12.0UnOhioHealth Dublin Methodist HospitalComment on above:Performed By: #### [id number] ####[facility])[address] [place], [place] [address]Eenmtvosdbf (Bld) [#/Vol] 5.31 10*3/uLNormal1.60-7.60UnOhioHealth Dublin Methodist HospitalComment on above: Performed By: #### [id number] ####[facility])[address] [place] [address]Zoxefyvcfnn/100 WBC (Bld)81.5 %High40.0-72.0UnOhioHealth Dublin Methodist HospitalComment on above:Performed By: #### [id number] ####[facility])[address] [place] [address]TDWX (PER 100 WBCS) BY AUTOMATED COUNT0.0 %Htgqhj5KzokasdpjxOhioHealth Dublin Methodist HospitalComment on above: Performed By: #### [id number] ####[facility])[address] [place] [address]JIVCZEBNM (10*3/UL) IN BLOOD AUTOMATED QWPHZ222 10*3/uLNormal 150-400UnOhioHealth Dublin Methodist HospitalComment on above:Performed By: #### [id number] ####[facility])[address] [place], [place] [address]FZS (Bld) [#/Vol]2.90 10*6/uLLow3.80-5.00UnOhioHealth Dublin Methodist HospitalComment on above:Performed By: #### [id number] ####[facility])[address] [place], [place] [address]YLA (Bld) [#/Vol]6.51 10*3/uLNormal4.00-10.60UnOhioHealth [facility] Methodist HospitalComment on above:Performed By: #### [id number] ####[facility])[address] [place], [place] [address]Yxzqbrekz (Bld) [#/Vol] 0.02 10*3/uLNormal0.00-0.20UnOhioHealth [facility] Methodist HospitalComment on above: Performed By: #### [id number] ####[facility])[address] [place], [place] [address]Kybohufjp/100 WBC (Bld)0.2 %Normal0.0-1.0UnOhioHealth Dublin Methodist HospitalComment on above:Performed By: #### [id number] ####[facility])[address] [place], [place] [address]Agsjezasgxl (Bld) [#/Vol]0.33 10*3/uL Normal0.00-0.50UnOhioHealth [facility] Methodist HospitalComment on above:Performed By: #### [id number] ####[facility])[address] [place] [address] Eosinophils/100 WBC (Bld)3.8 %Normal0.0-6.0UnOhioHealth [facility] Hospital Comment on above:Performed By: #### [id number] ####[facility])[address] [place], [place] [address]Nnryqzegycq distribution width (RBC) [Ratio]16.2 % High11.5-15.0UnOhioHealth Dublin Methodist HospitalComment on above:Performed By: #### [id number] ####[facility])[address] [place] [address] ERYTHROCYTE MEAN CORPUSCULAR HEMOGLOBIN CONCENTRATION (G/DL) BY KCJGOOZJG56.4 g/dLLow32.0-35.0UnOhioHealth Dublin Methodist HospitalComment on above:Performed By: #### [id number] ####[facility] ([facility])[address] [place] [address]Wjacviyblk (Bld) [Volume fraction]30.9 %Low36.0-48.0UnOhioHealth Dublin Methodist HospitalComment on above:Performed By: #### [id number] ####[facility])[address] [place], [place] [address]Unqayadcur (Bld) [Mass/Vol]9.7 g/dLLow 12.0-15.0UnOhioHealth Dublin Methodist HospitalComment on above:Performed By: #### [id number] ####[facility])[address] [place], [place] [address]Kbfabnot granulocytes (Bld) [#/Vol]0.06 10*3/uLNormal0.00-0.20UnOhioHealth [facility] Methodist HospitalComment on above:Performed By: #### [id number] ####[facility])[address] [place], [place] [address]Krkkntfl granulocytes/100 WBC (Bld)0.7 %Normal0.0-1.0UnOhioHealth Dublin Methodist HospitalComment on above:Performed By: #### [id number] ####[facility])[address] [place] [address] Lymphocytes (Bld) [#/Vol]1.07 10*3/uLLow1.20-4.00UnOhioHealth [facility] Methodist HospitalComment on above:Performed By: #### [id number] ####[facility])[address] [place], [place] [address]Pevzdjvijao/100 WBC (Bld)12.4 %Low 20.0-45.0UnOhioHealth [facility] Methodist HospitalComment on above:Performed By: #### [id number] ####[facility])[address] [place], [place] [address]YUW (RBC) [Entitic mass]28.0 xmWjhgrl96.0-33.0UnOhio[facility] Comment on above:Performed By: #### [id number] ####[facility])[address] [place] [address]EWL (RBC) [Entitic vol]89.0 kZZgwbeo94.0-98.0 [facility] - DublinComment on above:Performed By: #### [id number] ####[facility])[address] [place] [address]Gecmjnjkx (Bld) [#/Vol]0.51 10*3/uLNormal0.10-1.00UnOhioHealth [facility] Methodist HospitalComment on above:Performed By: #### [id number] ####[facility])[address] [place] [address]Cocdarubr/100 WBC (Bld)5.9 %Normal5.0-12.0UnOhioHealth [facility] Methodist HospitalComment on above:Performed By: #### [id number] ####[facility])[address] [place] [address]Krjslnxiych (Bld) [#/Vol] 6.63 10*3/uLNormal1.60-7.60UnOhioHealth [facility] Methodist HospitalComment on above: Performed By: #### [id number] ####[facility])[address] [place] [address]Hnaaqtlnjpa/100 WBC (Bld)77.0 %High40.0-72.0UnOhioHealth [facility] Methodist HospitalComment on above:Performed By: #### [id number] ####[facility])[address] [place] [address]DTMQ (PER 100 WBCS) BY AUTOMATED COUNT0.0 %Wbxqwd3CqlpdeicpoOhioHealth Dublin Methodist HospitalComment on above: Performed By: #### [id number] ####[facility] ([facility])[address] [place] [address]CLYEZWRWY (10*3/UL) IN BLOOD AUTOMATED SXYIB150 10*3/uLNormal 150-400UnOhioHealth [facility] Methodist HospitalComment on above:Performed By: #### [id number] ####[facility])[address] [place], [place] [address]KQJ (Bld) [#/Vol]3.47 10*6/uLLow3.80-5.00UnOhioHealth [facility] Methodist HospitalComment on above:Performed By: #### [id number] ####[facility])[address] [place], [place] [address]LHK (Bld) [#/Vol]8.62 10*3/uLNormal4.00-10.60UnOhioHealth [facility] Methodist HospitalComment on above:Performed By: #### [id number] ####[facility])[address] [place], [place] [address]XJAMTNYBYXIDF METABOLIC PANELon 68-19-2493Zwutdfk [Mass/Vol]3.5 g/dLNormal3.5-5.7UnOhioHealth [facility] Methodist HospitalComment on above:Performed By: #### [id number] ####[facility])[address] [place], [place] [address]GMC [Catalytic activity/Vol]96 U/L Pzgdow20-889HxfvamywguOhioHealth Dublin Methodist HospitalComment on above:Performed By: #### [id number] ####[facility])[address] [place], [place] [address]VQJ [Catalytic activity/Vol]5 U/LLow7-52UnOhioHealth [facility] Methodist HospitalComment on above:Performed By: #### [id number] ####[facility])[address] [place], [place] [address]Clwqk gap [Moles/Vol]14 mmol/LNormal7-20UnOhioHealth [facility] Methodist HospitalComment on above:Performed By: #### [id number] ####[facility])[address] [place], [place] [address]FZQ [Catalytic activity/Vol]11 U/LLow 13-39UnOhioHealth [facility] Methodist HospitalComment on above:Performed By: #### [id number] ####[facility])[address] [place], [place] [address]Jedtkuska [Mass/Vol]0.8 mg/dLNormal0.3-1.0UnOhioHealth [facility] Methodist HospitalComment on above:Performed By: #### [id number] ####[facility])[address] [place], [place] [address]Lhvmhlz [Mass/Vol]9.2 mg/dLNormal8.6-10.3UnOhioHealth [facility] Methodist HospitalComment on above:Performed By: #### [id number] ####[facility])[address] [place], [place] [address]Wbjuhgye [Moles/Vol]95 mmol/DHrm44-167 [facility] - DublinComment on above:Performed By: #### [id number] ####[facility])[address] [place], [place] [address]IF1 [Moles/Vol] 31 mmol/JNbcraw47-45EvnfkgpcapOhioHealth Dublin Methodist HospitalComment on above: Performed By: #### [id number] ####[facility])[address] [place], [place] [address]Rnohszeknd [Mass/Vol]1.54 mg/dLHigh0.60-1.20UnOhioHealth [facility] Methodist HospitalComment on above:Performed By: #### [id number] ####[facility])[address] [place], [place] [address]MIVNTITUTR FILTRATION RATE ML/MIN/1.73 SQ M.JINIQARMC08.9 mL/min/1.73m*2Low>60.0UnOhio[facility] Comment on above:Result Comment: [facility]???s estimated glomerular filtration rate (eGFR) will no [...] anyone group of individuals.Performed By: #### [id number] ####[facility])[address] [place], [place] [address]Mhobqff [Mass/Vol]89 mg/kYZdjvpb34-541YpjenfovanOhioHealth Dublin Methodist HospitalComment on above:Performed By: #### [id number] ####[facility])[address] [place], [place] [address]Ajoxoelih [Moles/Vol]4.1 mmol/LNormal3.5-5.1UnOhioHealth [facility] Methodist HospitalComment on above:Performed By: #### [id number] ####[facility])[address] [place], [place] [address]Datrxsx [Mass/Vol]6.2 g/dLNormal 6.0-8.3UnOhioHealth [facility] Methodist HospitalComment on above:Performed By: #### [id number] ####[facility])[address] [place], [place] [address]Jfplyh [Moles/Vol]136 mmol/WWqvtpv128-727SrxzayuquaOhioHealth Dublin Methodist HospitalComment on above:Performed By: #### [id number] ####[facility])[address] [place], [place] [address]Azrv nitrogen [Mass/Vol]20 mg/dLNormal7-25UnOhioHealth [facility] Methodist HospitalComment on above:Performed By: #### [id number] ####[facility])[address] [place], [place] [address]VOIE NITROGEN/CREATININE (MASS RATIO) IN SER/PLAS13.0NormalUniversKettering Health HamiltonComment on above: Performed By: #### [id number] ####[facility])[address] [place], [place] [address]YPPUYUUpp 40-49-9282ZMNBAQJUpvikrEnaigjhzfb of [facility] Medical CenterCTA ABDOMEN PELVIS W IV CONTRASTon 26-31-9168WTD ABDOMEN PELVIS W IV CONTRASTNoOur Lady of Mercy Hospital - AndersonLACTIC ACID WITH 4 HOUR REFLEXon 02-03-2024 LACTATE (MMOL/L) IN SER/PLAS0.7 mmol/LNormal0.5-2.2UnOhioHealth Dublin Methodist HospitalComment on above:Performed By: #### [id number] ####[facility])[address] [place], [place] [address]PGKZOMP (MMOL/L) IN SER/PLAS1.4 mmol/L Normal0.5-2.2UnOhioHealth Dublin Methodist HospitalComment on above:Performed By: #### [id number] ####[facility] ([facility])[address] [place] [address] MAGNESIUMon 25-85-7493Rcgdixcta [Mass/Vol]2.3 mg/dLNormal1.9-2.7UnOhioHealth Dublin Methodist HospitalComment on above:Performed By: #### [id number] ####[facility])[address] [place], [place] [address]Yywakihtp [Mass/Vol]2.3 mg/dLNormal1.9-2.7UnOhioHealth Dublin Methodist HospitalComment on above:Performed By: #### [id number] ####[facility] ([facility])[address] [place] [address] NURSNOTEon 50-81-9635JJWHVYJCVrzheeHrsfcznndh of [facility] Medical CenterPHOSPHORUS on 78-70-1772Ddzuipxai [Mass/Vol]4.8 mg/dLNormal2.5-5.0UnOhioHealth Dublin Methodist HospitalComment on above:Performed By: #### [id number] ####[facility] ([facility])[address] [place], [place] [address]HVRD GLUCOSE METER UNSOLICITED RESULTS on 27-22-2570Atycauz [Mass/Vol]105 mg/uZOpmowv46-489CdglqweyetOhioHealth Dublin Methodist HospitalComment on above:Order Comment: Waived Testing in the ED is performed under the ED CLIA certificate #[id number].Result Comment: mylzvjm9Lbskqkohm By: #### [id number] ####[facility])[address] [place] [address] Glucose [Mass/Vol]110 mg/aQHbdq33-120BigcfligweOhioHealth Dublin Methodist HospitalComment on above:Order Comment: Waived Testing in the ED is performed under the ED CLIA certificate #[id number].Result Comment: hlyvzup2Ocbmgpofs By: #### [id number] ####[facility] ([facility])[address] [place], [place] [address]IXQNUJZYR, WHOLE BLOODon 20-76-8788Bmwqjbtrv [Moles/Vol]4.2 mmol/LNormal3.5-5.1UnOhioHealth Dublin Methodist HospitalComment on above:Performed By: #### POTASSIUM, WHOLE BLOOD ####[facility] [id number] [place] [address] USASODIUM, WHOLE BLOODon 91-90-7653KAHMHL, WHOLE GYCFL997Vux834-906LndioisosmOhioHealth Dublin Methodist HospitalComment on above:Performed By: #### SODIUM, WHOLE BLOOD ####[facility] [id number] [place] [address] USATROPONIN Ion 02-03-2024 Troponin I.cardiac [Mass/Vol]0.05 ng/mLHigh0.00-0.04UnOhioHealth Dublin Methodist HospitalComment on above:Performed By: #### [id number] ####[facility])[address] [place], [place] [address]Yiqqioxx I.cardiac [Mass/Vol]0.06 ng/mLHigh0.00-0.04UnOhioHealth Dublin Methodist HospitalComment on above:Performed By: #### [id number] ####[facility])[address] [place] [address] Troponin I.cardiac [Mass/Vol]0.05 ng/mLHigh0.00-0.04UnOhioHealth Dublin Methodist HospitalComment on above:Performed By: #### [id number] ####[facility])[address] [place], [place] [address]FWPC AND SCREENon 66-81-1348ZB SCREEN NegativeNormalUniversKettering Health HamiltonComment on above:Performed By: #### [id number] ####[facility],ABO group Nom (Bld)ONormalUnOhioHealth Dublin Methodist HospitalComment on above:Performed By: #### [id number] ####[facility],RH TYPE IN BLOODPositiveNormalUniversKettering Health HamiltonComment on above: Performed By: #### [id number] ####[facility],30on [id number] [facility]30NormalUniversKettering Health HamiltonARTERIAL BLOOD GAS WITH IONIZED CALCIUMon [id number] excess Calc (Bld) [Moles/Vol]3.2 mmol/LHigh-2.0-3.0UnOhioHealth Dublin Methodist HospitalComment on above:Order Comment: Bipap 12/6Performed By: #### [id number] ####[facility] RESPIR[facility] [id number] [facility] [address] USACALCIUM IONIZED (MMOL/L) IN BLOOD1.19 mmol/L Normal1.15-1.33UnOhioHealth Dublin Methodist HospitalComment on above:Order Comment: Bipap 12/6Performed By: #### [id number] ####[facility] RESPIR[facility] [id number] [place] [address] USACO2 (Bld) [Partial pressure]45 mm[Hg]Normal 35-48UnOhioHealth Dublin Methodist HospitalComment on above:Order Comment: Bipap 12/6Performed By: #### [id number] ####[facility] RESPIR[facility] [id number] [place] [address] [id number] %NormalUnOhioHealth Dublin Methodist HospitalComment on above:Order Comment: Bipap 12/6Performed By: #### [id number] ####[facility] RESPIRAT[facility] [id number] [place] [address] USAHCO3 (Bld) [Moles/Vol] 28.5 mmol/LHigh21.0-28.0UnOhioHealth Dublin Methodist HospitalComment on above: Order Comment: Bipap 12/6Performed By: #### [id number] ####[facility] RESPIR[facility] [id number] [place] [address] USAOxygen (Bld) [Partial pressure]187 mm[Hg]Rxzs20-080JnoyseekegOhioHealth Dublin Methodist HospitalComment on above:Order Comment: Bipap 12/6Performed By: #### [id number] ####[facility] RESPIRATORY [id number] [place] [address] USAOXYGEN SATURATION (%) IN ARTERIAL GOQQL674.0 % High94.0-98.0UnOhioHealth Dublin Methodist HospitalComment on above:Order Comment: Bipap 12/6Performed By: #### [id number] ####[facility] RESPIRATORY [id number] [place] [address] USAPEEP6 gbJ3DXybxwdTaalygjhtdSalem Regional Medical Center Comment on above:Order Comment: Bipap 12/6Performed By: #### [id number] ####[facility] RESPIRATORY [id number] [place] [address] USApH (Bld)7.41 [pH]Normal 7.35-7.45UnOhioHealth Dublin Methodist HospitalComment on above:Order Comment: Bipap 12/6Performed By: #### [id number] ####[facility] RESPIRATORY [id number] [place] [address] USARESPIRATORY QSGR47LvbyokNslttyhkdsSalem Regional Medical CenterComment on above:Order Comment: Bipap 12/6Performed By: #### [id number] ####[facility] RESPIRATORY [id number] [place] [address] USASOURCE OF OXYGENBi-PAPNormalUniversity Fort Hamilton HospitalComment on above:Order Comment: Bipap 12/6Performed By: #### [id number] ####[facility] RESPIRATORY [id number] [place] [address] USAB-TYPE NATRIURETIC PEPTIDEon 02-02-2024 Natriuretic peptide B (Bld) [Mass/Vol]1109 pg/mLHigh0-100UnOhioHealth Dublin Methodist HospitalComment on above:Performed By: #### [id number] ####[facility] ([facility])[address] [place] [address]CEI WITH AUTO DIFFERENTIALon 48-03-3233Dvphyzahl (Bld) [#/Vol]0.03 10*3/uLNormal0.00-0.20UnOhioHealth Dublin Methodist HospitalComment on above:Performed By: #### [id number] ####[facility] ([facility])[address] [place], [place] [address]Nbpslwtqj/100 WBC (Bld)0.4 %Normal 0.0-1.0UnOhioHealth Dublin Methodist HospitalComment on above:Performed By: #### [id number] ####[facility] ([facility])[address] [place] [address] Eosinophils (Bld) [#/Vol]0.24 10*3/uLNormal0.00-0.50UnOhioHealth Dublin Methodist HospitalComment on above:Performed By: #### [id number] ####[facility] ([facility])[address] [place], [place] [address]Iuathfwoqop/100 WBC (Bld)3.0 %Normal 0.0-6.0UnOhioHealth Dublin Methodist HospitalComment on above:Performed By: #### [id number] ####[facility] ([facility])[address] [place] [address] Erythrocyte distribution width (RBC) [Ratio]16.5 %High11.5-15.0UnOhioHealth Dublin Methodist HospitalComment on above:Performed By: #### [id number] ####[facility] ([facility])[address] [place], [place] [address]YXWPKDAYIZE MEAN CORPUSCULAR HEMOGLOBIN CONCENTRATION (G/DL) BY KNNRGMLFB74.4 g/dLLow32.0-35.0 [facility] - DublinComment on above:Performed By: #### [id number] ####[facility] ([facility])[address] [place], [place] [address]Iflivwmnwz (Bld) [Volume fraction]29.3 %Low36.0-48.0UnOhioHealth Dublin Methodist HospitalComment on above:Performed By: #### [id number] ####[facility] ([facility])[address] [place], [place] [address]Txpbhpmcff (Bld) [Mass/Vol]8.9 g/dLLow12.0-15.0UnOhioHealth Dublin Methodist HospitalComment on above:Performed By: #### [id number] ####[facility] ([facility])[address] [place], [place] [address]Mruhizbu granulocytes (Bld) [#/Vol]0.07 10*3/uLNormal0.00-0.20UnOhioHealth Dublin Methodist Hospital Comment on above:Performed By: #### [id number] ####[facility] ([facility])[address] [place], [place] [address]Unnbusnd granulocytes/100 WBC (Bld)0.9 %Normal 0.0-1.0UnOhioHealth Dublin Methodist HospitalComment on above:Performed By: #### [id number] ####[facility] ([facility])[address] [place] [address] Lymphocytes (Bld) [#/Vol]1.34 10*3/uLNormal1.20-4.00[facility] - DublinComment on above:Performed By: #### [id number] ####[facility] ([facility])[address] [place], [place] [address]Bobexebrurq/100 WBC (Bld)16.5 %Low 20.0-45.0UnOhioHealth Dublin Methodist HospitalComment on above:Performed By: #### [id number] ####[facility] ([facility])[address] [place], [place] [address]DKV (RBC) [Entitic mass]28.2 xnLlfhnn40.0-33.0UnOhioHealth Dublin Methodist Hospital Comment on above:Performed By: #### [id number] ####[facility])[address] [place], [place] [address]GED (RBC) [Entitic vol]92.7 hOGhppyq70.0-98.0 [facility] - DublinComment on above:Performed By: #### [id number] ####[facility] ([facility])[address] [place] [address]Jlsurfdwk (Bld) [#/Vol]0.52 10*3/uLNormal0.10-1.00UnOhioHealth Dublin Methodist HospitalComment on above:Performed By: #### [id number] ####[facility] ([facility])[address] [place] [address]Bvlccsmwh/100 WBC (Bld)6.4 %Normal5.0-12.0UnOhioHealth Dublin Methodist HospitalComment on above:Performed By: #### [id number] ####[facility] ([facility])[address] [place] [address]Exhlrkylqjz (Bld) [#/Vol] 5.91 10*3/uLNormal1.60-7.60UnOhioHealth Dublin Methodist HospitalComment on above: Performed By: #### [id number] ####[facility] ([facility])[address] [place] [address]Dixvsbmaxyy/100 WBC (Bld)72.8 %High40.0-72.0UnOhioHealth Dublin Methodist HospitalComment on above:Performed By: #### [id number] ####[facility] ([facility])[address] [place] [address]LIKS (PER 100 WBCS) BY AUTOMATED COUNT0.0 %Olqlrz5QhgudkwlerOhioHealth Dublin Methodist HospitalComment on above: Performed By: #### [id number] ####[facility] ([facility])[address] [place] [address]INUQQNGAT (10*3/UL) IN BLOOD AUTOMATED ATDTX528 10*3/uLNormal 150-400UnOhioHealth Dublin Methodist HospitalComment on above:Performed By: #### [id number] ####[facility])[address] [place] [address]BRH (Bld) [#/Vol]3.16 10*6/uLLow3.80-5.00UnOhioHealth Dublin Methodist HospitalComment on above:Performed By: #### [id number] ####[facility] ([facility])[address] [place], [place] [address]UNA (Bld) [#/Vol]8.11 10*3/uLNormal4.00-10.60UnOhioHealth Dublin Methodist HospitalComment on above:Performed By: #### [id number] ####[facility] ([facility])[address] [place], [place] [address]BZYSUSXKCCWJE METABOLIC PANELon 31-37-3984Beepmaq [Mass/Vol]3.4 g/dLLow3.5-5.7UnOhioHealth Dublin Methodist HospitalComment on above:Performed By: #### [id number] ####[facility] ([facility])[address] [place], [place] [address]WYW [Catalytic activity/Vol]90 U/L Gfuclu92-313NsapepkcuqOhioHealth Dublin Methodist HospitalComment on above:Performed By: #### [id number] ####[facility] ([facility])[address] [place], [place] [address]BXK [Catalytic activity/Vol]5 U/LLow7-52UnOhioHealth Dublin Methodist HospitalComment on above:Performed By: #### [id number] ####[facility] ([facility])[address] [place], [place] [address]Vbyft gap [Moles/Vol]9 mmol/LNormal7-20UnOhioHealth Dublin Methodist HospitalComment on above:Performed By: #### [id number] ####[facility] ([facility])[address] [place], [place] [address]RFR [Catalytic activity/Vol]11 U/LLow 13-39UnOhioHealth Dublin Methodist HospitalComment on above:Performed By: #### [id number] ####[facility] ([facility])[address] [place], [place] [address]Pbwujivgu [Mass/Vol]0.5 mg/dLNormal0.3-1.0UnOhioHealth Dublin Methodist HospitalComment on above:Performed By: #### [id number] ####[facility] ([facility])[address] [place], [place] [address]Lpfmxes [Mass/Vol]8.3 mg/dLLow8.6-10.3UnOhioHealth Dublin Methodist HospitalComment on above:Performed By: #### [id number] ####[facility] ([facility])[address] [place], [place] [address]Wnaojdrv [Moles/Vol]101 mmol/LNormal 98-107UnOhioHealth Dublin Methodist HospitalComment on above:Performed By: #### [id number] ####[facility] ([facility])[address] [place], [place] [address]IC6 [Moles/Vol]26 mmol/BVqikyd21-17TlfywyjjruOhioHealth Dublin Methodist HospitalComment on above:Performed By: #### [id number] ####[facility] ([facility])[address] [place], [place] [address]Vnoqfptipz [Mass/Vol]1.28 mg/dLHigh0.60-1.20UnOhioHealth Dublin Methodist HospitalComment on above:Performed By: #### [id number] ####[facility] ([facility])[address] [place], [place] [address]GZPJFANPRP FILTRATION RATE ML/MIN/1.73 SQ M.XTLCNYHQX01.4 mL/min/1.73m*2Low>60.0UnOhioHealth Dublin Methodist HospitalComment on above:Result Comment: The [facility]???s estimated glomerular filtration rate (eGFR) will no [...] anyone group of individuals.Performed By: #### [id number] ####[facility] ([facility])[address] [place], [place] [address]Zriygma [Mass/Vol]95 mg/zAVabcex66-711XsvjfrotfcOhioHealth Dublin Methodist HospitalComment on above:Performed By: #### [id number] ####[facility] ([facility])[address] [place] [address]Omofklwaz [Moles/Vol]4.4 mmol/LNormal3.5-5.1UnOhioHealth Dublin Methodist HospitalComment on above:Performed By: #### [id number] ####[facility] ([facility])[address] [place] [address]Ufnxbte [Mass/Vol]5.7 g/dLLow 6.0-8.3UnOhioHealth Dublin Methodist HospitalComment on above:Performed By: #### [id number] ####[facility] ([facility])[address] [place] [address]Ykkmah [Moles/Vol]132 mmol/VTyq228-731VcveutupozOhioHealth Dublin Methodist HospitalComment on above:Performed By: #### [id number] ####[facility] ([facility])[address] [place] [address]Mbzw nitrogen [Mass/Vol]21 mg/dLNormal7-25UnOhioHealth Dublin Methodist HospitalComment on above:Performed By: #### [id number] ####[facility] ([facility])[address] [place] [address]LLOX NITROGEN/CREATININE (MASS RATIO) IN SER/PLAS16.4NormalUniversKettering Health HamiltonComment on above: Performed By: #### [id number] ####[facility] ([facility])[address] [place] [address]XDKYXCGjy 67-79-0342YPDRQXEQayhyeMqwjhuuiaz [facility] CONSULTNormalUniversity of St. Luke'S Health – The Woodlands HospitalCONSULTNormalUniversity Fort Hamilton HospitalHPon 37-25-9223TRCgnwxfCxzeoemxhc of St[facility] HPNormalUniversity Fort Hamilton HospitalLIPID PANELon 37-53-6848XUXQ/HDL3.3 mg/dLNormalUniversKettering Health HamiltonComment on above:Performed By: #### [id number] ####[facility] ([facility])[address] [place] [address] Cholesterol [Mass/Vol]148 mg/aIVdhqxy835-625KddqkvcuytOhioHealth Dublin Methodist Hospital Comment on above:Performed By: #### [id number] ####[facility] ([facility])[address] [place], [place] [address]Bhyqxjrdk [Mass/Vol]100 mg/qNMkoqev85-581VnyadibukqOhioHealth Dublin Methodist HospitalComment on above:Result Comment: TRIGLYCERIDE REFERENCE RANGE:20 YEARS AND OLDER CARDIOVASCULAR RISKLESS THAN 150 mg/dL LOW [id number] TO 199 mg/dL BORDERLINE DXPZ542 mg/dL AND GREATER HIGH RISKPerformed By: #### [id number] ####[facility] ([facility])[address] [place], [place] [address]Ulhyizyie [Mass/Vol]83 mg/dLNormal0-160UnOhioHealth Dublin Methodist HospitalComment on above:Performed By: #### [id number] ####[facility] ([facility])[address] [place], [place] [address]Ehmoaqjxe [Mass/Vol]45 mg/lGFimaji05-57KxbwiannhrOhioHealth Dublin Methodist HospitalComment on above:Performed By: #### [id number] ####[facility] ([facility])[address] [place], [place] [address]DQK HDL CHOL. (LDL+VLDL)103Normal [facility] - DublinComment on above:Performed By: #### [id number] ####[facility] ([facility])[address] [place], [place] [address]YCXJD VLDL-C20 mg/dLNormal0-40UnOhioHealth Dublin Methodist HospitalComment on above:Performed By: #### [id number] ####[facility] ([facility])[address] [place] [address] MAGNESIUMon 64-35-5039Uoyxugrtn [Mass/Vol]2.6 mg/dLNormal1.9-2.7UnOhioHealth Dublin Methodist HospitalComment on above:Performed By: #### [id number] ####[facility] ([facility])[address] [place] [address]OAHALVCT COUNTon 89-57-9510FDPVNSGFZ (10*3/UL) IN BLOOD AUTOMATED [id number] 10*3/zZIvzkux767-309 [facility] - DublinComment on above:Performed By: #### [id number] ####[facility] ([facility])[address] [place], [place] [address]SHVA GLUCOSE METER UNSOLICITED RESULTSon 01-91-0027Qqflmjl [Mass/Vol]117 mg/uBYqee85-047 [facility] Hospital - DublinComment on above:Order Comment: Waived Testing in the ED is performed under the ED CLIA certificate #[id number].Result Comment: shamarPerformed By: #### [id number] ####[facility] ([facility])[address] [place], [place] [address]Cudastn [Mass/Vol]97 mg/iISklkzd17-942JtuklxwpgnOhioHealth Dublin Methodist HospitalComment on above:Order Comment: Waived Testing in the ED is performed under the ED CLIA certificate #[id number].Result Comment: shamar Performed By: #### [id number] ####[facility] ([facility])[address] [place], [place] [address]Buofyyv [Mass/Vol]91 mg/wVYbudjr51-938AfjmcluifxOhioHealth Dublin Methodist HospitalComment on above:Order Comment: Waived Testing in the ED is performed under the ED CLIA certificate #[id number].Result Comment: [email or web address] Performed By: #### [id number] ####[facility] ([facility])[address] [place], [place] [address]Cdkpnfj [Mass/Vol]93 mg/vBFlpiaj40-290HqzihtkmbiOhioHealth Dublin Methodist HospitalComment on above:Order Comment: Waived Testing in the ED is performed under the ED CLIA certificate #[id number].Result Comment: [email or web address] Performed By: #### [id number] ####[facility] ([facility])[address] [place], [place] [address]A1, FREEon 55-33-0860HSFFSHBEI (T4) FREE (NG/DL) IN SER/PLAS 1.61 ng/dLNormal0.71-1.85UnOhioHealth Dublin Methodist HospitalComment on above: Performed By: #### [id number] ####[facility] ([facility])[address] [place], [place] [address]IQGAGVIQ Ion 40-77-0229Vjwviqxb I.cardiac [Mass/Vol]0.06 ng/mLHigh0.00-0.04UnOhioHealth Dublin Methodist HospitalComment on above:Performed By: #### [id number] ####[facility] ([facility])[address] [place] [address] Troponin I.cardiac [Mass/Vol]0.08 ng/mLHigh0.00-0.04UnOhioHealth Dublin Methodist HospitalComment on above:Performed By: #### [id number] ####[facility] ([facility])[address] [place], [place] [address]Jxcpxkzh I.cardiac [Mass/Vol]0.07 ng/mLHigh0.00-0.04UnOhioHealth Dublin Methodist HospitalComment on above:Performed By: #### [id number] ####[facility] ([facility])[address] [place] [address] TSHon 51-81-4658OCSXNRATDNL (MIU/L) IN SER/PLAS BY DETECTION LIMIT <= 0.05 MIU/L 5.42 mIU/LNormal0.34-5.60UnOhioHealth Dublin Methodist HospitalComment on above: Performed By: #### [id number] ####[facility])[address] [place], [place] [address]gr 41-50-377762Kfh patient is Moderately Stable - Low risk of patient condition declining or worsening The patient's goals for the shift include sleep/rest The clinical goals for the shift include VSS/restNormalUniversity of St. Luke'S Health – The Woodlands HospitalLtwhwc43SxdrhlMpdqpjfgdb Fort Hamilton HospitalBASIC METABOLIC PANELon 54-40-6687Gmykc gap [Moles/Vol]8 mmol/LNormal7-20UnOhioHealth Dublin Methodist HospitalComment on above:Performed By: #### [id number] ####[facility])[address] [place], [place] [address]Bigkmcd [Mass/Vol]8.0 mg/dLLow8.6-10.3 [facility] - DublinComment on above:Performed By: #### [id number] ####[facility])[address] [place], [place] [address]Uoundlls [Moles/Vol]106 mmol/UBimswb95-111FwkxryftdcOhioHealth Dublin Methodist HospitalComment on above:Performed By: #### [id number] ####[facility])[address] [place], [place] [address]HE9 [Moles/Vol]28 mmol/PCnbrqg94-73KrzhemtqszOhioHealth Dublin Methodist HospitalComment on above:Performed By: #### [id number] ####[facility] ([facility])[address] [place], [place] [address]Loptilgtnp [Mass/Vol]1.39 mg/dLHigh 0.60-1.20UnOhioHealth Dublin Methodist HospitalComment on above:Performed By: #### [id number] ####[facility] ([facility])[address] [place], [place] [address]XILLIHCWPB FILTRATION RATE ML/MIN/1.73 SQ M.WITHTJJGX65.4 mL/min/1.73m*2Low>60.0UnOhioHealth Dublin Methodist HospitalComment on above:Result Comment: The [facility]???s estimated glomerular filtration rate (eGFR) will no [...] group of individuals. Performed By: #### [id number] ####[facility] ([facility])[address] [place], [place] [address]Hvsqekp [Mass/Vol]91 mg/mWTuqlnr61-958HhrgrrmlynOhioHealth Dublin Methodist HospitalComment on above:Performed By: #### [id number] ####[facility] ([facility])[address] [place], [place] [address]Vtzpyvofv [Moles/Vol]4.3 mmol/LNormal 3.5-5.1UnOhioHealth Dublin Methodist HospitalComment on above:Performed By: #### [id number] ####[facility] ([facility])[address] [place], [place] [address]Clbjsm [Moles/Vol]138 mmol/BGofjka138-940WvaaiyxudaOhioHealth Dublin Methodist HospitalComment on above:Performed By: #### [id number] ####[facility] ([facility])[address] [place], [place] [address]Mntm nitrogen [Mass/Vol]29 mg/dLHigh7-25UnOhioHealth Dublin Methodist HospitalComment on above:Performed By: #### [id number] ####[facility] ([facility])[address] [place], [place] [address]EZEL NITROGEN/CREATININE (MASS RATIO) IN SER/PLAS20.9NormalUniversKettering Health HamiltonComment on above: Performed By: #### [id number] ####[facility] ([facility])[address] [place], [place] [address]XWN WITH AUTO DIFFERENTIALon 49-89-5658Acpdgjcvc (Bld) [#/Vol]0.03 10*3/uLNormal0.00-0.20UnOhioHealth Dublin Methodist HospitalComment on above: Performed By: #### [id number] ####[facility] ([facility])[address] [place], [place] [address]Heqdeykmd/100 WBC (Bld)0.3 %Normal0.0-1.0UnOhioHealth Dublin Methodist HospitalComment on above:Performed By: #### [id number] ####[facility] ([facility])[address] [place], [place] [address]Uistflrlyye (Bld) [#/Vol]0.19 10*3/uL Normal0.00-0.50UnOhioHealth Dublin Methodist HospitalComment on above:Performed By: #### [id number] ####[facility] ([facility])[address] [place] [address] Eosinophils/100 WBC (Bld)1.8 %Normal0.0-6.0UnOhioHealth Dublin Methodist Hospital Comment on above:Performed By: #### [id number] ####[facility] ([facility])[address] [place], [place] [address]Mkmegcuctft distribution width (RBC) [Ratio]17.0 % High11.5-15.0UnOhioHealth Dublin Methodist HospitalComment on above:Performed By: #### [id number] ####[facility] ([facility])[address] [place] [address] ERYTHROCYTE MEAN CORPUSCULAR HEMOGLOBIN CONCENTRATION (G/DL) BY DFKXXJDGY71.5 g/dLLow32.0-35.0UnOhioHealth Dublin Methodist HospitalComment on above:Performed By: #### [id number] ####[facility] ([facility])[address] [place], [place] [address]Qvnitxbtju (Bld) [Volume fraction]27.2 %Low36.0-48.0UnOhioHealth Dublin Methodist HospitalComment on above:Performed By: #### [id number] ####[facility] ([facility])[address] [place], [place] [address]Uqrconkgyc (Bld) [Mass/Vol]8.3 g/dLLow 12.0-15.0UnOhioHealth Dublin Methodist HospitalComment on above:Performed By: #### [id number] ####[facility] ([facility])[address] [place], [place] [address]Gvspjlpr granulocytes (Bld) [#/Vol]0.04 10*3/uLNormal0.00-0.20UnOhioHealth Dublin Methodist HospitalComment on above:Performed By: #### [id number] ####[facility])[address] [place], [place] [address]Zxjtufzw granulocytes/100 WBC (Bld)0.4 %Normal0.0-1.0UnOhioHealth Dublin Methodist HospitalComment on above:Performed By: #### [id number] ####[facility] ([facility])[address] [place] [place] [address] Lymphocytes (Bld) [#/Vol]1.44 10*3/uLNormal1.20-4.00UnOhioHealth Dublin Methodist HospitalComment on above:Performed By: #### [id number] ####[facility] ([facility])[address] [place] [place], [place] [address]Vhjeqfgmlxc/100 WBC (Bld)13.6 %Low 20.0-45.0UnOhioHealth Dublin Methodist HospitalComment on above:Performed By: #### [id number] ####[facility] ([facility])[address] [place], [place] [address]VQU (RBC) [Entitic mass]28.3 bsDcgchr58.0-33.0UnOhioHealth [facility] Methodist Hospital Comment on above:Performed By: #### [id number] ####[facility] ([facility])[address] [place], [place] [address]XVV (RBC) [Entitic vol]92.8 mHWtwcnc76.0-98.0 [facility] - DublinComment on above:Performed By: #### [id number] ####[facility] ([facility])[address] [place] [place], [place] [address]Jnhtjqtja (Bld) [#/Vol]0.73 10*3/uLNormal0.10-1.00UnOhioHealth Dublin Methodist HospitalComment on above:Performed By: #### [id number] ####[facility] ([facility])[address] [place], [place] [address]Rujewjkjs/100 WBC (Bld)6.9 %Normal5.0-12.0UnOhioHealth Dublin Methodist HospitalComment on above:Performed By: #### [id number] ####[facility] ([facility])[address] [place] [address]Wivbcnvcxpp (Bld) [#/Vol] 8.12 10*3/uLHigh1.60-7.60UnOhioHealth Dublin Methodist HospitalComment on above: Performed By: #### [id number] ####[facility] ([facility])[address] [place] [address]Gjfrzhpeazx/100 WBC (Bld)77.0 %High40.0-72.0UnOhioHealth Dublin Methodist HospitalComment on above:Performed By: #### [id number] ####[facility] ([facility])[address] [place] [address]AAMY (PER 100 WBCS) BY AUTOMATED COUNT0.0 %Wetfmf6LoiahctvxmOhioHealth Dublin Methodist HospitalComment on above: Performed By: #### [id number] ####[facility] ([facility])[address] [place] [address]FHCJXGMMI (10*3/UL) IN BLOOD AUTOMATED JCQHR000 10*3/uLLow 150-400UnOhioHealth [facility] Methodist HospitalComment on above:Performed By: #### [id number] ####[facility] ([facility])[address] [place] [address]EVL (Bld) [#/Vol]2.93 10*6/uLLow3.80-5.00UnOhioHealth Dublin Methodist HospitalComment on above:Performed By: #### [id number] ####[facility] ([facility])[address] [place] [address]RBF (Bld) [#/Vol]10.55 10*3/uLNormal4.00-10.60UnOhioHealth Dublin Methodist HospitalComment on above:Performed By: #### [id number] ####[facility] ([facility])[address] [place] [address]PTgw 21-70-1246ODFpkjsi [facility] DublinMAGNESIUMon [id number] [Mass/Vol]2.2 mg/dLNormal1.9-2.7UnOhioHealth Dublin Methodist HospitalComment on above:Performed By: #### [id number] ####[facility] CAMPUS)[address] [place], [place] [address]AYHCMBJNst 58-64-6591NRVMJQHDOdjzioKteygndlxl [facility] NURSNOTENormalUniversity Fort [facility] HospitalOrders Onlyon 96-64-5760Fwaaye [id number] Shayy Maynard 1945 F Date Provider Department Center 01/31/2024 [facility] VASC [place] Count No family history on fileNormalUniversKettering Health HamiltonPHOSPHORUSon 43-64-9865Iyjxdvifg [Mass/Vol]3.3 mg/dLNormal2.5-5.0UnOhioHealth Dublin Methodist HospitalComment on above:Performed By: #### [id number] ####[facility] ([facility])[address] [place], [place] [address]XGUX GLUCOSE METER UNSOLICITED RESULTS on 45-32-4083Zwhkahz [Mass/Vol]210 mg/wVYyvw41-108UdhazayykdOhioHealth Dublin Methodist HospitalComment on above:Order Comment: Waived Testing in the ED is performed under the ED CLIA certificate #[id number].Result Comment: [email or web address] By: #### [id number] ####[facility] ([facility] [place] [address] Glucose [Mass/Vol]118 mg/eXVgfw64-894HvlfygtkrlOhioHealth Dublin Methodist HospitalComment on above:Order Comment: Waived Testing in the ED is performed under the ED CLIA certificate #[id number].Result Comment: [id number] By: #### [id number] ####[facility] ([facility])[address] [place], [place] [address]EAJLB METABOLIC PANELon 92-59-1137Qkqck gap [Moles/Vol]7 mmol/LNormal7-20UnOhioHealth Dublin Methodist HospitalComment on above:Performed By: #### [id number] ####[facility] ([facility])[address] [place], [place] [address]Odocvwj [Mass/Vol]8.0 mg/dLLow8.6-10.3 [facility] - DublinComment on above:Performed By: #### [id number] ####[facility] ([facility])[address] [place] [address]Izudogqn [Moles/Vol]107 mmol/CTtzebv90-100TjifzernlqOhioHealth Dublin Methodist HospitalComment on above:Performed By: #### [id number] ####[facility] ([facility])[address] [place] [address]IY7 [Moles/Vol]27 mmol/ABravgw39-70XalbyfrmwbOhioHealth Dublin Methodist HospitalComment on above:Performed By: #### [id number] ####[facility] ([facility])[address] [place], [place] [address]Gdxwrjqkkj [Mass/Vol]1.54 mg/dLHigh 0.60-1.20UnOhioHealth Dublin Methodist HospitalComment on above:Performed By: #### [id number] ####[facility] ([facility])[address] [place], [place] [address]INZRZLWNQB FILTRATION RATE ML/MIN/1.73 SQ M.LGMWAFNTO36.9 mL/min/1.73m*2Low>60.0UnOhioHealth Dublin Methodist HospitalComment on above:Result Comment: The [facility]???s estimated glomerular filtration rate (eGFR) will no [...] group of individuals. Performed By: #### [id number] ####[facility] ([facility])[address] [place], [place] [address]Cyuylit [Mass/Vol]124 mg/sKZoqg64-281UtayxqbxxmOhioHealth Dublin Methodist HospitalComment on above:Performed By: #### [id number] ####[facility] ([facility])[address] [place], [place] [address]Jqpanmntk [Moles/Vol]4.4 mmol/LNormal 3.5-5.1UnOhioHealth Dublin Methodist HospitalComment on above:Performed By: #### [id number] ####[facility] ([facility])[address] [place] [address]Stirvm [Moles/Vol]137 mmol/CFklegr371-197ZzbxtilziqOhioHealth Dublin Methodist HospitalComment on above:Performed By: #### [id number] ####[facility] ([facility])[address] [place] [address]Muxg nitrogen [Mass/Vol]25 mg/dLNormal7-25UnOhioHealth Dublin Methodist HospitalComment on above:Performed By: #### [id number] ####[facility] ([facility])[address] [place] [address]MDEY NITROGEN/CREATININE (MASS RATIO) IN SER/PLAS16.2NormalUnOhioHealth Dublin Methodist HospitalComment on above: Performed By: #### [id number] ####[facility] ([facility])[address] [place] [address]TTK WITH AUTO DIFFERENTIALon 11-94-1854Aljbzgypj (Bld) [#/Vol]0.02 10*3/uLNormal0.00-0.20UnOhioHealth Dublin Methodist HospitalComment on above: Performed By: #### [id number] ####[facility] ([facility])[address] [place], [place] [address]Dtnwzbuah/100 WBC (Bld)0.2 %Normal0.0-1.0UnOhioHealth Dublin Methodist HospitalComment on above:Performed By: #### [id number] ####[facility] ([facility])[address] [facility] [place], [place] [address]Altxzhozror (Bld) [#/Vol]0.06 10*3/uL Normal0.00-0.50UnOhioHealth Dublin Methodist HospitalComment on above:Performed By: #### [id number] ####[facility] ([facility])[address] [place] [address] Eosinophils/100 WBC (Bld)0.5 %Normal0.0-6.0UnOhioHealth Dublin Methodist Hospital Comment on above:Performed By: #### [id number] ####[facility] ([facility])[address] [place], [place] [address]Huovpmhemus distribution width (RBC) [Ratio]16.7 % High11.5-15.0UnOhioHealth Dublin Methodist HospitalComment on above:Performed By: #### [id number] ####[facility] ([facility])[address] [place] [address] ERYTHROCYTE MEAN CORPUSCULAR HEMOGLOBIN CONCENTRATION (G/DL) BY YWZBHDTNV98.5 g/dLLow32.0-35.0UnOhioHealth Dublin Methodist HospitalComment on above:Performed By: #### [id number] ####[facility] ([facility])[address] [place], [place] [address]Hexwkyfwdf (Bld) [Volume fraction]29.8 %Low36.0-48.0UnOhioHealth Dublin Methodist HospitalComment on above:Performed By: #### [id number] ####[facility] ([facility])[address] [place], [place] [address]Kmeousvbps (Bld) [Mass/Vol]9.1 g/dLLow 12.0-15.0UnOhioHealth Dublin Methodist HospitalComment on above:Performed By: #### [id number] ####[facility] ([facility])[address] [place], [place] [address]Zdjrhxsj granulocytes (Bld) [#/Vol]0.07 10*3/uLNormal0.00-0.20UnOhioHealth Dublin Methodist HospitalComment on above:Performed By: #### [id number] ####[facility] ([facility]ER)[address] [place], [place] [address]Uibtnfuf granulocytes/100 WBC (Bld)0.5 %Normal0.0-1.0UnOhioHealth Dublin Methodist HospitalComment on above:Performed By: #### [id number] ####[facility] ([facility])[address] [place] [address] Lymphocytes (Bld) [#/Vol]1.15 10*3/uLLow1.20-4.00UnOhioHealth Dublin Methodist HospitalComment on above:Performed By: #### [id number] ####[facility] ([facility])[address] [place] [address]Syorigsuwxu/100 WBC (Bld)8.6 %Low 20.0-45.0UnOhioHealth Dublin Methodist HospitalComment on above:Performed By: #### [id number] ####[facility] ([facility])[address] [place] [address]XJK (RBC) [Entitic mass]28.4 sjNhvniy54.0-33.0UnOhioHealth Dublin Methodist Hospital Comment on above:Performed By: #### [id number] ####[facility] ([facility])[address] [place] [address]BOQ (RBC) [Entitic vol]93.1 lZRvbptb54.0-98.0 [facility] - DublinComment on above:Performed By: #### [id number] ####[facility] ([facility])[address] [facility] [place], [place] [address]Rqhjdvpmd (Bld) [#/Vol]0.80 10*3/uLNormal0.10-1.00UnOhioHealth Dublin Methodist HospitalComment on above:Performed By: #### [id number] ####[facility] ([facility])[address] [place], [place] [address]Aiwqyuqqi/100 WBC (Bld)6.0 %Normal5.0-12.0UnOhioHealth Dublin Methodist HospitalComment on above:Performed By: #### [id number] ####[facility] ([facility])[address] [facility] [place], [place] [address]Fhiwerkmwmu (Bld) [#/Vol] 11.20 10*3/uLHigh1.60-7.60UnOhioHealth Dublin Methodist HospitalComment on above: Performed By: #### [id number] ####[facility] ([facility])[address] [facility] [place], [place] [address]Tnhunxdvtsa/100 WBC (Bld)84.2 %High40.0-72.0UnOhioHealth Dublin Methodist HospitalComment on above:Performed By: #### [id number] ####[facility] ([facility])[address] [place] [address]RFSK (PER 100 WBCS) BY AUTOMATED COUNT0.0 %Zcmaea5LzrdjljmxxOhioHealth Dublin Methodist HospitalComment on above: Performed By: #### [id number] ####[facility] ([facility])[address] [place] [address]CEQUPJWSY (10*3/UL) IN BLOOD AUTOMATED [id number] 10*3/uLNormal 150-400UnOhioHealth Dublin Methodist HospitalComment on above:Performed By: #### [id number] ####[facility] ([facility])[address] [place] [address]ZIS (Bld) [#/Vol]3.20 10*6/uLLow3.80-5.00UnOhioHealth Dublin Methodist HospitalComment on above:Performed By: #### [id number] ####[facility] ([facility])[address] [place] [address]AHP (Bld) [#/Vol]13.30 10*3/uLHigh4.00-10.60UnOhioHealth Dublin Methodist HospitalComment on above:Performed By: #### [id number] ####[facility] ([facility])[address] [place] [address]EZzx 29-43-8967FYRzwyxw [facility] - DublinMAGNESIUMon 17-39-5857Kcqjgowek [Mass/Vol]2.4 mg/dLNormal1.9-2.7UnOhioHealth Dublin Methodist HospitalComment on above:Performed By: #### [id number] ####[facility] ([facility])[address] [place] [address]MPEXVSBKPHml 09-11-0639Pckuihlwl [Mass/Vol]3.6 mg/dLNormal2.5-5.0UnOhioHealth Dublin Methodist HospitalComment on above:Performed By: #### [id number] ####[facility] ([facility])[address] [place], [place] [address]BWZU GLUCOSE METER UNSOLICITED RESULTSon 49-89-3691Vflayhs [Mass/Vol]271 mg/iUIhow15-212OfwzfiratyOhioHealth Dublin Methodist HospitalComment on above:Order Comment: Waived Testing in the ED is performed under the ED CLIA certificate #[id number].Result Comment: [email or web address] Performed By: #### [id number] ####[facility] ([facility])[address] [place], [place] [address]Dtyojgc [Mass/Vol]130 mg/pUHaki99-547BsmrzqhzigSelect Medical OhioHealth Rehabilitation Hospital - DublinComment on above:Order Comment: Waived Testing in the ED is performed under the ED CLIA certificate #[id number].Result Comment: [email or web address] Performed By: #### [id number] ####[facility] ([facility])[address] [place], [place] [address]Aibzuni [Mass/Vol]166 mg/hQGnob30-393ZgdrdavjhlSelect Medical OhioHealth Rehabilitation Hospital - DublinComment on above:Order Comment: Waived Testing in the ED is performed under the ED CLIA certificate #[id number].Result Comment: [email or web address] Performed By: #### [id number] ####[facility] ([facility])[address] [place], [place] [address]Satwcfc [Mass/Vol]151 mg/bETrsq98-209ZfyioxmaxgSelect Medical OhioHealth Rehabilitation Hospital - DublinComment on above:Order Comment: Waived Testing in the ED is performed under the ED CLIA certificate #[id number].Result Comment: [email or web address] Performed By: #### [id number] ####[facility] ([facility])[address] [place], [place] [address]Ucheszx [Mass/Vol]134 mg/qOQttv51-351ZsupytcicdOhioHealth Dublin Methodist HospitalComment on above:Order Comment: Waived Testing in the ED is performed under the ED CLIA certificate #[id number].Result Comment: [email or web address] Performed By: #### [id number] ####[facility] ([facility])[address] [place], [place] [address]ly 23-05-072080Mjl patient is Moderately Stable - Low risk of patient condition declining or worsening The patient's goals for the shift include Pain Control The clinical goals for the shift include VSS, pain control, mobilityNormal [facility] Dublin30NormalUniversKettering Health Hamilton ARTERIAL BLOOD GAS WITH CO-OXIMETRYon 30-86-7768Qshn excess Calc (Bld) [Moles/Vol]0.2 mmol/LNormal-2.0-3.0UnOhioHealth Dublin Methodist HospitalComment on above:Performed By: #### [id number] ####[facility] [id number] [place] [address] USACARBOXYHEMOGLOBIN/HEMOGLOBIN TOTAL % IN BLOOD1.4 %Normal 0.0-3.0UnOhioHealth Dublin Methodist HospitalComment on above:Performed By: #### [id number] ####[facility] [id number] [place] [address] USACO2 (Bld) [Partial pressure]38 mm[Hg]Bzdnnu63-13PcftwfcqehOhioHealth Dublin Methodist Hospital Comment on above:Performed By: #### [id number] ####[facility] [id number] [place] [address] USADEOXYGENATED HEMOGLOBIN IN BLOOD0.4 %Low1-5 [facility] - DublinComment on above:Performed By: #### [id number] ####[facility] [id number] [place] [address] USAHCO3 (Bld) [Moles/Vol]24.6 mmol/ANtaxzf44.0-28.0UnOhioHealth Dublin Methodist HospitalComment on above:Performed By: #### [id number] ####[facility] [id number] [place] [address] USAHemoglobin (Bld) [Mass/Vol]10.5 g/dLLow11.7-17.4 [facility] - DublinComment on above:Performed By: #### [id number] ####[facility] [id number] [place] [address] RJXZGL0Jrmeii [facility] - DublinComment on above:Performed By: #### [id number] ####[facility] [id number] [place] [address] [place] METHEMOGLOBIN/100 IN BLOOD0.7 %Normal0.0-1.5UnOhioHealth Dublin Methodist Hospital Comment on above:Performed By: #### [id number] ####[facility] [id number] [place] [address] USAOxygen (Bld) [Partial pressure]116 mm[Hg]High 83-100UnOhioHealth Dublin Methodist HospitalComment on above:Performed By: #### [id number] ####[facility] [id number] [place] [address] USAOXYGEN SATURATION (%) IN ARTERIAL BLOOD99.6 %High94.0-98.0UnOhioHealth Dublin Methodist HospitalComment on above:Performed By: #### [id number] ####[facility] [id number] [place] [address] USAOXYGENATED HEMOGLOBIN IN BLOOD97.5 %High90.0-95.0UnOhioHealth Dublin Methodist HospitalComment on above:Performed By: #### [id number] ####[facility] [id number] [place] [address] [facility] pH (Bld)7.42 [pH]Normal7.35-7.45UnOhioHealth Dublin Methodist HospitalComment on above:Performed By: #### [id number] ####[facility] [id number] [place] [address] USASOURCE OF OXYGENNasal cannulaNormalUniversity Fort Hamilton HospitalComment on above:Performed By: #### [id number] ####[facility] [id number] [place] [address] [facility] HOSPITALARTERIAL BLOOD GAS WITH IONIZED CALCIUMon 13-78-8725Nwri excess Calc (Bld) [Moles/Vol]-0.6000 mmol/LNormal -2.0-3.0UnOhioHealth Dublin Methodist HospitalComment on above:Performed By: #### [id number] ####[facility] [id number] [place] [address] [place] CALCIUM IONIZED (MMOL/L) IN BLOOD1.19 mmol/LNormal1.15-1.33UnOhioHealth Dublin Methodist HospitalComment on above:Performed By: #### [id number] ####[facility] [id number] [place] [address] USACO2 (Bld) [Partial pressure]46 mm[Hg]Lspvxo57-63SbcqolmbksOhioHealth Dublin Methodist HospitalComment on above:Performed By: #### [id number] ####[facility] [id number] [place] [address] USAHCO3 (Bld) [Moles/Vol]25.4 mmol/JIkzlpr91.0-28.0UnOhioHealth Dublin Methodist HospitalComment on above:Performed By: #### [id number] ####[facility] [id number] [place] [address] YDNFBL6NtyrobRgiewisbziOhioHealth Southeastern Medical CenterComment on above:Performed By: #### [id number] ####[facility] [id number] [place] [address] USAOxygen (Bld) [Partial pressure]97 mm[Hg]Hpcyzm26-432YlsbxarqceOhioHealth Dublin Methodist HospitalComment on above:Performed By: #### [id number] ####[facility] [id number] [place] [address] USAOXYGEN SATURATION (%) IN ARTERIAL BLOOD99.4 %High94.0-98.0UnOhioHealth Dublin Methodist HospitalComment on above:Performed By: #### [id number] ####[facility] [id number] [place] [address] USApH (Bld)7.35 [pH]Normal 7.35-7.45UnOhioHealth Dublin Methodist HospitalComment on above:Performed By: #### [id number] ####[facility] [id number] [place] [address] USASOURCE OF OXYGENNasal cannulaNormalUniSalem Regional Medical CenterComment on above:Performed By: #### [id number] ####[facility] [id number] [place] [address] USABASIC METABOLIC PANELon 00-34-9555Rnfgi gap [Moles/Vol]11 mmol/LNormal7-20UnOhioHealth Dublin Methodist HospitalComment on above:Performed By: #### [id number] ####[facility] ([facility])[address] [place] [address] Calcium [Mass/Vol]8.0 mg/dLLow8.6-10.3UnOhioHealth Dublin Methodist HospitalComment on above:Performed By: #### [id number] ####[facility] ([facility])[address] [place], [place] [address]Pthjqvmd [Moles/Vol]105 mmol/QLfcmwl97-836QmcnxxzcnrOhioHealth Dublin Methodist HospitalComment on above:Performed By: #### [id number] ####[facility] ([facility])[address] [place], [place] [address]HR6 [Moles/Vol]25 mmol/LNormal 21-31UnOhioHealth Dublin Methodist HospitalComment on above:Performed By: #### [id number] ####[facility] ([facility])[address] [place], [place] [address]Snucmnsnwy [Mass/Vol]1.18 mg/dLNormal0.60-1.20UnOhioHealth Dublin Methodist HospitalComment on above:Performed By: #### [id number] ####[facility] ([facility])[address] [place], [place] [address]TIVMPCVABA FILTRATION RATE ML/MIN/1.73 SQ M.JXXIMJLEW62.7 mL/min/1.73m*2Low>60.0UnOhioHealth Dublin Methodist HospitalComment on above:Result Comment: The [facility]???s estimated glomerular filtration rate (eGFR) will no [...] anyone group of individuals.Performed By: #### [id number] ####[facility] ([facility])[address] [place] [address]Xnuqjrd [Mass/Vol]204 mg/eZKdoh38-227EiwlbmuknmOhioHealth Dublin Methodist HospitalComment on above:Performed By: #### [id number] ####[facility] ([facility])[address] [place] [address]Spdlntjea [Moles/Vol]3.8 mmol/L Normal3.5-5.1UnOhioHealth Dublin Methodist HospitalComment on above:Performed By: #### [id number] ####[facility] ([facility])[address] [place] [address] Sodium [Moles/Vol]137 mmol/ZEwbipe437-806FgwlppxtukOhioHealth Dublin Methodist Hospital Comment on above:Performed By: #### [id number] ####[facility] ([facility])[address] [place], [place] [address]Unnn nitrogen [Mass/Vol]21 mg/dLNormal7-25 [facility] - DublinComment on above:Performed By: #### [id number] ####[facility] ([facility])[address] [place], [place] [address]NSIV NITROGEN/CREATININE (MASS RATIO) IN SER/PLAS17.8NormalUniversKettering Health HamiltonComment on above:Performed By: #### [id number] ####[facility] ([facility])[address] [place], [place] [address]BIDNUHN, IONIZEDon 92-72-0582HSKLTNT IONIZED (MMOL/L) IN BLOOD1.14 mmol/LLow1.15-1.33UnOhioHealth Dublin Methodist HospitalComment on above:Performed By: #### [id number] ####[facility] [id number] [place] [address] USACALCIUM IONIZED (MMOL/L) IN BLOOD1.19 mmol/L Normal1.15-1.33UnOhioHealth Dublin Methodist HospitalComment on above:Performed By: #### CALCIUM, IONIZED ####[facility] [id number] [place] [address] USACBCon 37-38-8423Lorjwbzhfip distribution width (RBC) [Ratio]16.1 %High 11.5-15.0UnOhioHealth Dublin Methodist HospitalComment on above:Performed By: #### [id number] ####[facility] ([facility])[address] [place] [address] ERYTHROCYTE MEAN CORPUSCULAR HEMOGLOBIN CONCENTRATION (G/DL) BY QHSPLNDTL85.2 g/qKAsvkyf86.0-35.0UnOhioHealth Dublin Methodist HospitalComment on above:Performed By: #### [id number] ####[facility] ([facility])[address] [place] [address]Gjuucoytxn (Bld) [Volume fraction]30.7 %Low36.0-48.0UnOhioHealth Dublin Methodist HospitalComment on above:Performed By: #### [id number] ####[facility] ([facility])[address] [place], [place] [address]Hhkbxclvda (Bld) [Mass/Vol]9.9 g/dLLow 12.0-15.0UnOhioHealth Dublin Methodist HospitalComment on above:Performed By: #### [id number] ####[facility] ([facility])[address] [place] [address]DXB (RBC) [Entitic mass]28.6 ypRgnvan78.0-33.0UnOhioHealth Dublin Methodist HospitalComment on above:Performed By: #### [id number] ####[facility] ([facility])[address] [place], [place] [address]ZUB (RBC) [Entitic vol]88.7 kMFhxtyr53.0-98.0UnOhioHealth Dublin Methodist HospitalComment on above:Performed By: #### [id number] ####[facility] ([facility])[address] [place] [address]LZDXQDSHQ (10*3/UL) IN BLOOD AUTOMATED [id number] 10*3/sGUsl674-558QrftwkxyqfOhioHealth Dublin Methodist Hospital Comment on above:Performed By: #### [id number] ####[facility] ([facility])[address] [place], [place] [address]EYM (Bld) [#/Vol]3.46 10*6/uLLow3.80-5.00UnOhioHealth Dublin Methodist HospitalComment on above:Performed By: #### [id number] ####[facility] ([facility])[address] [place] [address]MLT (Bld) [#/Vol]13.37 10*3/uLHigh4.00-10.60UnOhioHealth Dublin Methodist HospitalComment on above: Performed By: #### [id number] ####[facility] ([facility])[address] [facility] [place] [address]WLW WITH AUTO DIFFERENTIALon 56-26-1208Jdrabshpt (Bld) [#/Vol]0.02 10*3/uLNormal0.00-0.20UnOhioHealth Dublin Methodist HospitalComment on above:Performed By: #### [id number] ####[facility] ([facility])[address] [place], [place] [address]Zhisxjsai/100 WBC (Bld)0.2 %Normal0.0-1.0UnOhioHealth Dublin Methodist HospitalComment on above:Performed By: #### [id number] ####[facility] ([facility])[address] [place], [place] [address]Szvwzhvhyxc (Bld) [#/Vol]0.00 10*3/uL Normal0.00-0.50UnOhioHealth Dublin Methodist HospitalComment on above:Performed By: #### [id number] ####[facility] ([facility])[address] [place] [address] Eosinophils/100 WBC (Bld)0.0 %Normal0.0-6.0UnOhioHealth Dublin Methodist Hospital Comment on above:Performed By: #### [id number] ####[facility] ([facility])[address] [facility] [place], [place] [address]Ykikdspzldf distribution width (RBC) [Ratio]16.1 % High11.5-15.0UnOhioHealth Dublin Methodist HospitalComment on above:Performed By: #### [id number] ####[facility] ([facility])[address] [place] [address] ERYTHROCYTE MEAN CORPUSCULAR HEMOGLOBIN CONCENTRATION (G/DL) BY CCXBRCYGB88.0 g/pKMlkcma10.0-35.0UnOhioHealth Dublin Methodist HospitalComment on above:Performed By: #### [id number] ####[facility] ([facility])[address] [place], [place] [address]Litbipwnlv (Bld) [Volume fraction]32.5 %Low36.0-48.0UnOhioHealth Dublin Methodist HospitalComment on above:Performed By: #### [id number] ####[facility] ([facility])[address] [place], [place] [address]Kygumbpszu (Bld) [Mass/Vol]10.4 g/dL Low12.0-15.0UnOhioHealth Dublin Methodist HospitalComment on above:Performed By: #### [id number] ####[facility] ([facility])[address] [place] [address] Immature granulocytes (Bld) [#/Vol]0.05 10*3/uLNormal0.00-0.20UnOhioHealth Dublin Methodist HospitalComment on above:Performed By: #### [id number] ####[facility] (AK[facility])[address] [place], [place] [address]Duzacwax granulocytes/100 WBC (Bld)0.4 %Normal0.0-1.0UnOhioHealth Dublin Methodist HospitalComment on above: Performed By: #### [id number] ####[facility] ([facility])[address] [place], [place] [address]Ftuiivfjath (Bld) [#/Vol]0.98 10*3/uLLow1.20-4.00UnOhioHealth Dublin Methodist HospitalComment on above:Performed By: #### [id number] ####[facility] ([facility])[address] [place], [place] [address]Jtsptkvjqqk/100 WBC (Bld) 7.8 %Low20.0-45.0UnOhioHealth Dublin Methodist HospitalComment on above:Performed By: #### [id number] ####[facility] ([facility])[address] [place], [place] [address]LIL (RBC) [Entitic mass]28.3 juYazopt96.0-33.0UnOhioHealth Dublin Methodist HospitalComment on above:Performed By: #### [id number] ####[facility] ([facility])[address] [facility] [place] [address]GOY (RBC) [Entitic vol]88.3 fLNormal 82.0-98.0UnOhioHealth Dublin Methodist HospitalComment on above:Performed By: #### [id number] ####[facility] ([facility])[address] [place] [address] Monocytes (Bld) [#/Vol]0.54 10*3/uLNormal0.10-1.00UnOhioHealth Dublin Methodist HospitalComment on above:Performed By: #### [id number] ####[facility] ([facility])[address] [facility] [place] [address]Allggfjum/100 WBC (Bld)4.3 %Low 5.0-12.0UnOhioHealth Dublin Methodist HospitalComment on above:Performed By: #### [id number] ####[facility] ([facility])[address] [place] [address] Neutrophils (Bld) [#/Vol]11.04 10*3/uLHigh1.60-7.60UnOhioHealth Dublin Methodist HospitalComment on above:Performed By: #### [id number] ####[facility] ([facility])[address] [facility] [address]Qvszcelzdcl/100 WBC (Bld)87.3 %High 40.0-72.0UnOhioHealth Dublin Methodist HospitalComment on above:Performed By: #### [id number] ####[facility] ([facility])[address] [facility] [place] [address]ZIEV (PER 100 WBCS) BY AUTOMATED COUNT0.0 %Qqppks8GidpwwtrkfOhioHealth Dublin Methodist Hospital Comment on above:Performed By: #### [id number] ####[facility] ([facility])[address] [place] [address]MYHNYAQCJ (10*3/UL) IN BLOOD AUTOMATED [id number] 10*3/iLRqrmlj769-341AzajdvftluOhioHealth Dublin Methodist HospitalComment on above: Performed By: #### [id number] ####[facility] ([facility])[address] [place] [address]ZRJ (Bld) [#/Vol]3.68 10*6/uLLow3.80-5.00UnOhioHealth Dublin Methodist HospitalComment on above:Performed By: #### [id number] ####[facility] ([facility])[address] [place] [address]AVY (Bld) [#/Vol]12.63 10*3/uLHigh 4.00-10.60UnOhioHealth Dublin Methodist HospitalComment on above:Performed By: #### [id number] ####[facility] ([facility])[address] [place] [address] Basophils (Bld) [#/Vol]0.01 10*3/uLNormal0.00-0.20UnOhioHealth Dublin Methodist HospitalComment on above:Performed By: #### [id number] ####[facility] ([facility])[address] [place], [place] [address]Ytvctepuz/100 WBC (Bld)0.1 %Normal 0.0-1.0UnOhioHealth Dublin Methodist HospitalComment on above:Performed By: #### [id number] ####[facility] ([facility])[address] [place] [address] Eosinophils (Bld) [#/Vol]0.00 10*3/uLNormal0.00-0.50UnOhioHealth Dublin Methodist HospitalComment on above:Performed By: #### [id number] ####[facility] ([facility])[address] [place], [place] [address]Dzbfmeybhjd/100 WBC (Bld)0.0 %Normal 0.0-6.0UnOhioHealth Dublin Methodist HospitalComment on above:Performed By: #### [id number] ####[facility] ([facility])[address] [place] [address] Erythrocyte distribution width (RBC) [Ratio]16.4 %High11.5-15.0UnOhioHealth Dublin Methodist HospitalComment on above:Performed By: #### [id number] ####[facility] ([facility])[address] [place], [place] [address]PSGSSWNVAQK MEAN CORPUSCULAR HEMOGLOBIN CONCENTRATION (G/DL) BY YTANGLUNS77.6 g/dLLow32.0-35.0 [facility] - DublinComment on above:Performed By: #### [id number] ####[facility] ([facility])[address] [place], [place] [address]Nzzyeyilji (Bld) [Volume fraction]31.0 %Low36.0-48.0UnOhioHealth Dublin Methodist HospitalComment on above:Performed By: #### [id number] ####[facility] ([facility])[address] [place], [place] [address]Fcvcyaqibb (Bld) [Mass/Vol]9.8 g/dLLow12.0-15.0UnOhioHealth Dublin Methodist HospitalComment on above:Performed By: #### [id number] ####[facility] ([facility])[address] [place], [place] [address]Ptlvcpoa granulocytes (Bld) [#/Vol]0.05 10*3/uLNormal0.00-0.20UnOhioHealth [facility] Methodist Hospital Comment on above:Performed By: #### [id number] ####[facility] ([facility])[address] [place], [place] [address]Rycecpxo granulocytes/100 WBC (Bld)0.5 %Normal 0.0-1.0UnOhioHealth Dublin Methodist HospitalComment on above:Performed By: #### [id number] ####[facility] ([facility])[address] [place] [address] Lymphocytes (Bld) [#/Vol]0.58 10*3/uLLow1.20-4.00UnOhioHealth Dublin Methodist HospitalComment on above:Performed By: #### [id number] ####[facility] ([facility])[address] [place], [place] [address]Luoleviwvvr/100 WBC (Bld)6.3 %Low 20.0-45.0UnOhioHealth Dublin Methodist HospitalComment on above:Performed By: #### [id number] ####[facility] ([facility])[address] [place], [place] [address]SUD (RBC) [Entitic mass]28.2 qbZteevz48.0-33.0UnOhioHealth [facility] Methodist Hospital Comment on above:Performed By: #### [id number] ####[facility] ([facility])[address] [place], [place] [address]QLY (RBC) [Entitic vol]89.3 rUYsmydv79.0-98.0 [facility] - DublinComment on above:Performed By: #### [id number] ####[facility] ([facility])[address] [facility] [place], [place] [address]Ubzhiutrt (Bld) [#/Vol]0.21 10*3/uLNormal0.10-1.00UnOhioHealth Dublin Methodist HospitalComment on above:Performed By: #### [id number] ####[facility] ([facility])[address] [facility] [place] [address]Gpqfmporb/100 WBC (Bld)2.3 %Low5.0-12.0UnOhioHealth Dublin Methodist HospitalComment on above:Performed By: #### [id number] ####[facility] ([facility])[address] [facility] [place] [address]Zxtcktnzdmw (Bld) [#/Vol]8.38 10*3/uL High1.60-7.60UnOhioHealth Dublin Methodist HospitalComment on above:Performed By: #### [id number] ####[facility] ([facility])[address] [place] [address] Neutrophils/100 WBC (Bld)90.8 %High40.0-72.0UnOhioHealth [facility] Methodist Hospital Comment on above:Performed By: #### [id number] ####[facility] ([facility])[address] [place] [address]PIEG (PER 100 WBCS) BY AUTOMATED COUNT0.0 %Normal0 [facility] - DublinComment on above:Performed By: #### [id number] ####[facility] ([facility])[address] [place] [address]ILWSGJLOA (10*3/UL) IN BLOOD AUTOMATED [id number] 10*3/cLJdb435-805VqpzftfrrwOhioHealth Dublin Methodist HospitalComment on above:Performed By: #### [id number] ####[facility] ([facility])[address] [place], [place] [address]GKM (Bld) [#/Vol]3.47 10*6/uLLow 3.80-5.00UnOhioHealth Dublin Methodist HospitalComment on above:Performed By: #### [id number] ####[facility] ([facility])[address] [place], [place] [address]HFY (Bld) [#/Vol]9.23 10*3/uLNormal4.00-10.60[facility] Comment on above:Performed By: #### [id number] ####[facility] ([facility])[address] [place], [place] [address]ZEFKBCSEITNJY METABOLIC PANELon 78-12-88[address]Pspiwmu [Mass/Vol]3.1 g/dLLow3.5-5.7UnOhioHealth Dublin Methodist HospitalComment on above: Performed By: #### [id number] ####[facility] ([facility])[address] [place], [place] [address]PVI [Catalytic activity/Vol]60 U/EYnsbgb43-801UtagoqxcceOhioHealth Dublin Methodist HospitalComment on above:Performed By: #### [id number] ####[facility] ([facility])[address] [place], [place] [address]QFI [Catalytic activity/Vol]4 U/LLow 7-52University of Barcenas Medical CenterComment on above:Performed By: #### [id number] ####[facility] ([facility])[address] [place], [place] [address]Luxbc gap [Moles/Vol]9 mmol/LNormal7-20UnOhioHealth Dublin Methodist HospitalComment on above:Performed By: #### [id number] ####[facility] ([facility])[address] [place], [place] [address]IRA [Catalytic activity/Vol]11 U/XEzt51-00XgpwjzeiqrOhioHealth Dublin Methodist HospitalComment on above:Performed By: #### [id number] ####[facility] ([facility])[address] [place], [place] [address]Kqjrzemnr [Mass/Vol]0.4 mg/dL Normal0.3-1.0UnOhioHealth Dublin Methodist HospitalComment on above:Performed By: #### [id number] ####[facility] ([facility])[address] [place] [address] Calcium [Mass/Vol]8.0 mg/dLLow8.6-10.3UnOhioHealth Dublin Methodist HospitalComment on above:Performed By: #### [id number] ####[facility] ([facility])[address] [place], [place] [address]Rzghojan [Moles/Vol]108 mmol/BZpie39-456JeaxvapdxlOhioHealth Dublin Methodist HospitalComment on above:Performed By: #### [id number] ####[facility] ([facility])[address] [place], [place] [address]YO9 [Moles/Vol]25 mmol/YSrximm90-96 [facility] - DublinComment on above:Performed By: #### [id number] ####[facility] ([facility])[address] [place], [place] [address]Siitwdzbsy [Mass/Vol]1.06 mg/dLNormal0.60-1.20UnOhioHealth Dublin Methodist HospitalComment on above:Performed By: #### [id number] ####[facility] ([facility])[address] [place], [place] [address]HSUNGNBOLO FILTRATION RATE ML/MIN/1.73 SQ M.BZTRPAFJZ65.1 mL/min/1.73m*2Low>60.0UnOhioHealth Dublin Methodist HospitalComment on above:Result Comment: The [facility]???s estimated glomerular filtration rate (eGFR) will no [...] anyone group of individuals.Performed By: #### [id number] ####[facility] ([facility])[address] [place], [place] [address]Ycoyhsj [Mass/Vol]133 mg/bOJift77-026EnftvnqktjOhioHealth Dublin Methodist HospitalComment on above:Performed By: #### [id number] ####[facility] ([facility])[address] [place], [place] [address]Rvylkleju [Moles/Vol]4.2 mmol/L Normal3.5-5.1UnOhioHealth Dublin Methodist HospitalComment on above:Performed By: #### [id number] ####[facility] ([facility])[address] [place] [address] Protein [Mass/Vol]5.2 g/dLLow6.0-8.3UnOhioHealth Dublin Methodist HospitalComment on above:Performed By: #### [id number] ####[facility] ([facility])[address] [place], [place] [address]Kgdnui [Moles/Vol]138 mmol/FUajqgf676-289NujbzovabfOhioHealth Dublin Methodist HospitalComment on above:Performed By: #### [id number] ####[facility] ([facility])[address] [place], [place] [address]Efph nitrogen [Mass/Vol]19 mg/dLNormal 7-25UnOhioHealth Dublin Methodist HospitalComment on above:Performed By: #### [id number] ####[facility] ([facility])[address] [place], [place] [address]VDTW NITROGEN/CREATININE (MASS RATIO) IN SER/PLAS17.9NormalUniversKettering Health HamiltonComment on above:Performed By: #### [id number] ####[facility] ([facility])[address] [place], [place] [address]Ipbpbvm [Mass/Vol]3.3 g/dLLow3.5-5.7 [facility] - DublinComment on above:Performed By: #### [id number] ####[facility] ([facility])[address] [place], [place] [address]VUI [Catalytic activity/Vol]67 U/GTlratm30-958GjipjvaiubOhioHealth Dublin Methodist HospitalComment on above:Performed By: #### [id number] ####[facility] ([facility])[address] [place], [place] [address]OMU [Catalytic activity/Vol]7 U/LNormal7-52UnOhioHealth Dublin Methodist HospitalComment on above:Performed By: #### [id number] ####[facility] ([facility])[address] [place], [place] [address]Knytq gap [Moles/Vol]11 mmol/L Normal7-20UnOhioHealth Dublin Methodist HospitalComment on above:Performed By: #### [id number] ####[facility] ([facility])[address] [place], [place] [address]DVB [Catalytic activity/Vol]14 U/BItqnza18-00YxfhhnwnqnOhioHealth Dublin Methodist Hospital Comment on above:Performed By: #### [id number] ####[facility] ([facility])[address] [place], [place] [address]Agwioueyz [Mass/Vol]0.4 mg/dLNormal0.3-1.0 [facility] - DublinComment on above:Performed By: #### [id number] ####[facility] ([facility])[address] [place], [place] [address]Lnrjnsg [Mass/Vol]8.4 mg/dLLow8.6-10.3UnOhioHealth Dublin Methodist HospitalComment on above:Performed By: #### [id number] ####[facility] ([facility])[address] [place], [place] [address]Nwvthjbi [Moles/Vol]108 mmol/IWiyv63-903CyxspqqzhyOhioHealth Dublin Methodist HospitalComment on above:Performed By: #### [id number] ####[facility] ([facility])[address] [place], [place] [address]QE8 [Moles/Vol]25 mmol/SLuianc08-85 [facility] - DublinComment on above:Performed By: #### [id number] ####[facility] ([facility])[address] [place], [place] [address]Cbwukmqrrf [Mass/Vol]1.24 mg/dLHigh0.60-1.20UnOhioHealth Dublin Methodist HospitalComment on above:Performed By: #### [id number] ####[facility] ([facility])[address] [place], [place] [address]GYYBONPJRA FILTRATION RATE ML/MIN/1.73 SQ M.EWHNWCMEQ63.0 mL/min/1.73m*2Low>60.0UnOhioHealth Dublin Methodist HospitalComment on above:Result Comment: The [facility]???s estimated glomerular filtration rate (eGFR) will no [...] anyone group of individuals.Performed By: #### [id number] ####[facility] ([facility])[address] [place], [place] [address]Uxfyarx [Mass/Vol]146 mg/uAXrkn47-339CcykpglnpxOhioHealth Dublin Methodist HospitalComment on above:Performed By: #### [id number] ####[facility] ([facility])[address] [place], [place] [address]Rnbwmgquj [Moles/Vol]4.1 mmol/L Normal3.5-5.1UnOhioHealth Dublin Methodist HospitalComment on above:Performed By: #### [id number] ####[facility] ([facility])[address] [place] [address] Protein [Mass/Vol]5.7 g/dLLow6.0-8.3UnOhioHealth Dublin Methodist HospitalComment on above:Performed By: #### [id number] ####[facility] ([facility])[address] [place] [address]Mgkfzy [Moles/Vol]140 mmol/OMnbduz015-818NfaqgmrtloOhioHealth Dublin Methodist HospitalComment on above:Performed By: #### [id number] ####[facility] ([facility])[address] [place] [address]Erwt nitrogen [Mass/Vol]21 mg/dLNormal 7-25UnOhioHealth Dublin Methodist HospitalComment on above:Performed By: #### [id number] ####[facility] ([facility])[address] [place] [address]WLSH NITROGEN/CREATININE (MASS RATIO) IN SER/PLAS16.9NormalUniversKettering Health HamiltonComment on above:Performed By: #### [id number] ####[facility] ([facility])[address] [place] [address]SDE ABDOMEN W IV CONTRASTon 01-29-2024 CTA ABDOMEN W IV CONTRASTInvalid Interpretation CodeUnOhioHealth Dublin Methodist HospitalCTA CHEST W IV CONTRASTon [id number] CHEST W IV CONTRASTNormal [facility] - DublinLACTIC ACID WITH 4 HOUR REFLEXon 01-29-2024 LACTATE (MMOL/L) IN SER/PLAS0.9 mmol/LNormal0.5-2.2UnOhioHealth Dublin Methodist HospitalComment on above:Performed By: #### [id number] ####[facility] ([facility])[address] [place] [address]YZQJWMN (MMOL/L) IN SER/PLAS1.6 mmol/L Normal0.5-2.2UnOhioHealth Dublin Methodist HospitalComment on above:Performed By: #### [id number] ####[facility] ([facility])[address] [place] [address] LIPASEon 82-98-0414EFSCUX (U/L) IN SER/PLAS16 U/LZkcngt87-17JnfapckdpfOhioHealth Dublin Methodist HospitalComment on above:Performed By: #### [id number] ####[facility] ([facility])[address] [place] [address]AEDQNYLYVxh 62-19-1133Xxwsppuok [Mass/Vol]2.4 mg/dLNormal1.9-2.7UnOhioHealth Dublin Methodist HospitalComment on above:Performed By: #### [id number] ####[facility] ([facility])[address] [place], [place] [address]Xmbnbusyy [Mass/Vol]2.5 mg/dLNormal1.9-2.7UnOhioHealth Dublin Methodist HospitalComment on above:Performed By: #### [id number] ####[facility] ([facility])[address] [place], [place] [address]Marfnjwfw [Mass/Vol]2.7 mg/dLNormal1.9-2.7UnOhioHealth Dublin Methodist HospitalComment on above:Performed By: #### [id number] ####[facility] ([facility])[address] [place] [address] PHOSPHORUSon 34-17-2493Zvalgmcgq [Mass/Vol]3.1 mg/dLNormal2.5-5.0UnOhioHealth Dublin Methodist HospitalComment on above:Performed By: #### [id number] ####[facility] ([facility])[address] [place], [place] [address]Qxawnpszq [Mass/Vol]3.3 mg/dLNormal2.5-5.0UnOhioHealth Dublin Methodist HospitalComment on above:Performed By: #### [id number] ####[facility] ([facility])[address] [place] [address] Magnesium [Mass/Vol]4.2 mg/dLNormal2.5-5.0UnOhioHealth [facility] Methodist Hospital Comment on above:Performed By: #### [id number] ####[facility] ([facility])[address] [place], [place] [address]NPOS GLUCOSE METER UNSOLICITED RESULTSon 01-29-2024 Glucose [Mass/Vol]127 mg/rUXolg90-251YegjptwopuOhioHealth Dublin Methodist HospitalComment on above:Order Comment: Waived Testing in the ED is performed under the ED CLIA certificate #[id number].Result Comment: [id number] By: #### [id number] ####[facility] ([facility])[address] [place], [place] [address]Wtvxtjg [Mass/Vol]157 mg/pPFlxa14-225OngeqjchxwOhioHealth Dublin Methodist HospitalComment on above:Order Comment: Waived Testing in the ED is performed under the ED CLIA certificate #[id number].Result Comment: [id number] By: #### [id number] ####[facility] ([facility])[address] [place], [place] [address]Oabmltk [Mass/Vol]177 mg/lXIjzh71-293VrlanuyngqOhioHealth Dublin Methodist HospitalComment on above:Order Comment: Waived Testing in the ED is performed under the ED CLIA certificate #[id number].Result Comment: [id number] By: #### [id number] ####[facility] ([facility])[address] [place], [place] [address]Tofsvty [Mass/Vol]192 mg/iPJyhh92-204UranwjxvnyOhioHealth Dublin Methodist HospitalComment on above:Order Comment: Waived Testing in the ED is performed under the ED CLIA certificate #[id number].Result Comment: [id number] By: #### [id number] ####[facility] ([facility])[address] [place], [place] [address]IWCFROAAY, WHOLE BLOODon 78-00-5807Ptdyobeqj [Moles/Vol]4.0 mmol/LNormal3.5-5.1UnOhioHealth Dublin Methodist HospitalComment on above:Performed By: #### POTASSIUM, WHOLE BLOOD ####[facility] [id number] [place] [address] USASODIUM, WHOLE BLOODon 37-67-6986JFDQTC, WHOLE WKVCA731Pehlcb293-401EeamvqpqfbOhioHealth Dublin Methodist HospitalComment on above:Performed By: #### SODIUM, WHOLE BLOOD ####[facility] [id number] [place] [address] USATROPONIN Ion 01-29-2024 Troponin I.cardiac [Mass/Vol]0.02 ng/mLNormal0.00-0.04UnOhioHealth Dublin Methodist HospitalComment on above:Performed By: #### [id number] ####[facility] ([facility])[address] [place] [address]Ywtreoqk I.cardiac [Mass/Vol]0.07 ng/mLHigh0.00-0.04UnOhioHealth Dublin Methodist HospitalComment on above:Performed By: #### [id number] ####[facility] ([facility])[address] [place] [address] Troponin I.cardiac [Mass/Vol]0.03 ng/mLNormal0.00-0.04UnOhioHealth Dublin Methodist HospitalComment on above:Performed By: #### [id number] ####[facility] ([facility])[address] [facility] [address]xj [id number] [facility]30NormalUniversity Fort Hamilton HospitalANESon 40-14-6851JYRDXakltbNnsqzrzaqe [facility] HospitalANESNormalUniversKettering Health HamiltonARTERIAL BLOOD GAS WITH CO-OXIMETRYon 99-32-0495Mqyp excess Calc (Bld) [Moles/Vol]-2.0000 mmol/LNormal-2.0-3.0UnOhioHealth Dublin Methodist HospitalComment on above:Performed By: #### [id number] ####[facility] [id number] [place] [address] USACARBOXYHEMOGLOBIN/HEMOGLOBIN TOTAL % IN BLOOD1.9 %Normal0.0-3.0UnOhioHealth Dublin Methodist HospitalComment on above: Performed By: #### [id number] ####[facility] [id number] [place] [address] USACO2 (Bld) [Partial pressure]52 mm[Hg]Rqef30-35ZrytqmkqfmOhioHealth Dublin Methodist HospitalComment on above:Performed By: #### [id number] ####[facility] [id number] [facility] [address] USADEOXYGENATED HEMOGLOBIN IN BLOOD0.9 %Low1-5UnOhioHealth Dublin Methodist HospitalComment on above:Performed By: #### [id number] ####[facility] [id number] [place] [address] USAHCO3 (Bld) [Moles/Vol]25.0 mmol/GKxcuam18.0-28.0UnOhioHealth Dublin Methodist Hospital Comment on above:Performed By: #### [id number] ####[facility] [id number] [place] [address] USAHemoglobin (Bld) [Mass/Vol]11.1 g/dLLow 11.7-17.4UnOhioHealth Dublin Methodist HospitalComment on above:Performed By: #### [id number] ####[facility] [id number] [place] [address] USALPM3 NormalUnOhioHealth Dublin Methodist HospitalComment on above:Performed By: #### [id number] ####[facility] [id number] [place] [address] [place] METHEMOGLOBIN/100 IN BLOOD0.9 %Normal0.0-1.5UnOhioHealth Dublin Methodist Hospital Comment on above:Performed By: #### [id number] ####[facility] [id number] [address] [place] [address] USAOxygen (Bld) [Partial pressure]103 mm[Hg]High 83-100UnOhioHealth Dublin Methodist HospitalComment on above:Performed By: #### [id number] ####[facility] [id number] [address] [facility] [address] USAOXYGEN SATURATION (%) IN ARTERIAL BLOOD99.1 %High94.0-98.0UnOhioHealth Dublin Methodist HospitalComment on above:Performed By: #### [id number] ####[facility] [id number] [place] [address] USAOXYGENATED HEMOGLOBIN IN BLOOD96.3 %High90.0-95.0UnOhioHealth Dublin Methodist HospitalComment on above:Performed By: #### [id number] ####[facility] [id number] [place] [address] [place] pH (Bld)7.29 [pH]Low7.35-7.45UnOhioHealth Dublin Methodist HospitalComment on above:Performed By: #### [id number] ####[facility] [id number] [place] [address] USASOURCE OF OXYGENNasal cannulaNormalUniversity Fort Hamilton HospitalComment on above:Performed By: #### [id number] ####[facility] [id number] [place] [address] USAB-TYPE NATRIURETIC PEPTIDEon 34-59-9736Jclfqvhagbi peptide B (Bld) [Mass/Vol]869 pg/mLHigh0-100UnOhioHealth Dublin Methodist HospitalComment on above:Performed By: #### [id number] ####[facility] (BEAKER)[address] [place], [place] [address]XGUUS METABOLIC PANELon 65-83-5564Xnfec gap [Moles/Vol]11 mmol/LNormal7-20UnOhioHealth Dublin Methodist HospitalComment on above:Performed By: #### [id number] ####[facility] ([facility]AKER)[address] [place], [place] [address]Kgmqcpb [Mass/Vol]8.2 mg/dLLow8.6-10.3 [facility] - DublinComment on above:Performed By: #### [id number] ####[facility] LAB (BEAKER)[address] [place], [place] [address]Hkuawrgu [Moles/Vol]106 mmol/QBfxqzl41-093ZottvytanhOhioHealth Dublin Methodist HospitalComment on above:Performed By: #### [id number] ####[facility] ([facility]AKER)[address] [place], [place] [address]AR5 [Moles/Vol]26 mmol/WYarkje76-14ImjvfjtczlOhioHealth Dublin Methodist HospitalComment on above:Performed By: #### [id number] ####[facility] ([facility])[address] [place] [address]Mbahwzutgq [Mass/Vol]1.17 mg/dLNormal 0.60-1.20UnOhioHealth Dublin Methodist HospitalComment on above:Performed By: #### [id number] ####[facility] ([facility])[address] [place] [address]RCOVXCUBPM FILTRATION RATE ML/MIN/1.73 SQ M.KLIURDOKE52.2 mL/min/1.73m*2Low>60.0UnOhioHealth Dublin Methodist HospitalComment on above:Result Comment: The [facility]???s estimated glomerular filtration rate (eGFR) will no [...] group of individuals. Performed By: #### [id number] ####[facility] ([facility])[address] [place] [address]Phexnca [Mass/Vol]161 mg/fLIsyw31-062BqykyzeumfOhioHealth Dublin Methodist HospitalComment on above:Performed By: #### [id number] ####[facility] ([facility])[address] [place] [address]Homwbipvk [Moles/Vol]4.1 mmol/LNormal 3.5-5.1UnOhioHealth Dublin Methodist HospitalComment on above:Performed By: #### [id number] ####[facility] ([facility])[address] [place] [address]Gnjupq [Moles/Vol]139 mmol/VEhgznk353-549NmeimmeottOhioHealth Dublin Methodist HospitalComment on above:Performed By: #### [id number] ####[facility] ([facility])[address] [place], [place] [address]Hfep nitrogen [Mass/Vol]20 mg/dLNormal7-25UnOhioHealth Dublin Methodist HospitalComment on above:Performed By: #### [id number] ####[facility] ([facility])[address] [place], [place] [address]YVMM NITROGEN/CREATININE (MASS RATIO) IN SER/PLAS17.1NormalUnOhioHealth Dublin Methodist HospitalComment on above: Performed By: #### [id number] ####[facility] ([facility])[address] [place], [place] [address]Rvwym gap [Moles/Vol]8 mmol/LNormal7-20UnOhioHealth Dublin Methodist HospitalComment on above:Performed By: #### [id number] ####[facility] ([facility])[address] [place], [place] [address]Wpwecqk [Mass/Vol]8.8 mg/dLNormal 8.6-10.3UnOhioHealth Dublin Methodist HospitalComment on above:Performed By: #### [id number] ####[facility] ([facility])[address] [place], [place] [address]Rezwzmit [Moles/Vol]105 mmol/FWvptfr43-496SnyafucduwOhioHealth Dublin Methodist HospitalComment on above:Performed By: #### [id number] ####[facility] ([facility])[address] [place], [place] [address]AN6 [Moles/Vol]29 mmol/RTgibsk05-54VfrtutujejOhioHealth Dublin Methodist HospitalComment on above:Performed By: #### [id number] ####[facility] ([facility])[address] [place], [place] [address]Acnmtxssgy [Mass/Vol]1.19 mg/dLNormal 0.60-1.20UnOhioHealth Dublin Methodist HospitalComment on above:Performed By: #### [id number] ####[facility] ([facility])[address] [place], [place] [address]VFCIOPYRHQ FILTRATION RATE ML/MIN/1.73 SQ M.RBDZQELIG65.2 mL/min/1.73m*2Low>60.0UnOhioHealth Dublin Methodist HospitalComment on above:Result Comment: The [facility]???s estimated glomerular filtration rate (eGFR) will no [...] group of individuals. Performed By: #### [id number] ####[facility] ([facility])[address] [place], [place] [address]Ebnxlot [Mass/Vol]97 mg/vAGhjthj99-910DubknpsyinOhioHealth Dublin Methodist HospitalComment on above:Performed By: #### [id number] ####[facility] ([facility])[address] [place], [place] [address]Mulhwwnfm [Moles/Vol]3.7 mmol/LNormal 3.5-5.1UnOhioHealth Dublin Methodist HospitalComment on above:Performed By: #### [id number] ####[facility] (AKER)[address] [place], [place] [address]Lwytos [Moles/Vol]138 mmol/NAaeeql894-729FmyfnbinelOhioHealth Dublin Methodist HospitalComment on above:Performed By: #### [id number] ####[facility] ([facility])[address] [place], [place] [address]Rbpx nitrogen [Mass/Vol]22 mg/dLNormal7-25UnOhioHealth Dublin Methodist HospitalComment on above:Performed By: #### [id number] ####[facility] ([facility])[address] [place], [place] [address]UMIT NITROGEN/CREATININE (MASS RATIO) IN SER/PLAS18.5NormalUniversKettering Health HamiltonComment on above: Performed By: #### [id number] ####[facility] ([facility])[address] [place], [place] [address]PXVQNUI, IONIZEDon 12-77-1391JYIJFSL IONIZED (MMOL/L) IN BLOOD1.17 mmol/LNormal1.15-1.33UnOhioHealth Dublin Methodist HospitalComment on above: Performed By: #### CALCIUM, IONIZED ####[facility] [id number] [place] [address] USACBC WITH AUTO DIFFERENTIALon 88-25-3378Yaujnbfzw (Bld) [#/Vol]0.02 10*3/uLNormal0.00-0.20UnOhioHealth Dublin Methodist HospitalComment on above:Performed By: #### [id number] ####[facility] (BEAKER)[address] [place] [address]Hqnvcdjhm/100 WBC (Bld)0.2 %Normal0.0-1.0UnOhioHealth Dublin Methodist HospitalComment on above:Performed By: #### [id number] ####[facility] (BEAKER)[address] [place], [place] [address]Pjkvwaodfjw (Bld) [#/Vol]0.02 10*3/uL Normal0.00-0.50UnOhioHealth Dublin Methodist HospitalComment on above:Performed By: #### [id number] ####[facility] (BEAKER)[address] [place] [address] Eosinophils/100 WBC (Bld)0.2 %Normal0.0-6.0UnOhioHealth [facility] Methodist Hospital Comment on above:Performed By: #### [id number] ####[facility]PITAL LAB ([facility]AKER)[address] [place], [place] [address]Guedhzrrpqy distribution width (RBC) [Ratio]16.4 % High11.5-15.0UnOhioHealth Dublin Methodist HospitalComment on above:Performed By: #### [id number] ####[facility] LAB (BEAKER)[address] [place] [address] ERYTHROCYTE MEAN CORPUSCULAR HEMOGLOBIN CONCENTRATION (G/DL) BY BLUMKZNZT61.3 g/dLLow32.0-35.0UnOhioHealth Dublin Methodist HospitalComment on above:Performed By: #### [id number] ####[facility] (BEAKER)[address] [place], [place] [address]Uvsjodgrsr (Bld) [Volume fraction]34.2 %Low36.0-48.0UnOhioHealth Dublin Methodist HospitalComment on above:Performed By: #### [id number] ####[facility] (BEAKER)[address] [place] [address]Wkytqxztcz (Bld) [Mass/Vol]10.7 g/dL Low12.0-15.0UnOhioHealth Dublin Methodist HospitalComment on above:Performed By: #### [id number] ####[facility] ([facility])[address] [place] [address] Immature granulocytes (Bld) [#/Vol]0.09 10*3/uLNormal0.00-0.20UnOhioHealth Dublin Methodist HospitalComment on above:Performed By: #### [id number] ####[facility] ([facility])[address] [place], [place] [address]Dqehfzby granulocytes/100 WBC (Bld)0.9 %Normal0.0-1.0UnOhioHealth Dublin Methodist HospitalComment on above: Performed By: #### [id number] ####[facility] ([facility])[address] [place] [address]Ngpezceshyu (Bld) [#/Vol]1.01 10*3/uLLow1.20-4.00UnOhioHealth Dublin Methodist HospitalComment on above:Performed By: #### [id number] ####[facility] (BEAKER)[address] [place], [place] [address]Vkvrjhsjsxj/100 WBC (Bld) 9.6 %Low20.0-45.0UnOhioHealth Dublin Methodist HospitalComment on above:Performed By: #### [id number] ####[facility] ([facility])[address] [place] [address]UMB (RBC) [Entitic mass]28.0 hmNzqcbx39.0-33.0UnOhioHealth Dublin Methodist HospitalComment on above:Performed By: #### [id number] ####[facility] ([facility])[address] [facility] [place] [address]YKE (RBC) [Entitic vol]89.5 fLNormal 82.0-98.0UnOhioHealth Dublin Methodist HospitalComment on above:Performed By: #### [id number] ####[facility] ([facility])[address] [place] [address] Monocytes (Bld) [#/Vol]0.18 10*3/uLNormal0.10-1.00UnOhioHealth Dublin Methodist HospitalComment on above:Performed By: #### [id number] ####[facility] ([facility])[address] [facility] [place] [address]Ffbfwgysh/100 WBC (Bld)1.7 %Low 5.0-12.0UnOhioHealth Dublin Methodist HospitalComment on above:Performed By: #### [id number] ####[facility] ([facility])[address] [facility] [place] [place] [address] Neutrophils (Bld) [#/Vol]9.15 10*3/uLHigh1.60-7.60UnOhioHealth Dublin Methodist HospitalComment on above:Performed By: #### [id number] ####[facility] ([facility])[address] [facility] [place] [address]Ilvypmdgdjp/100 WBC (Bld)87.4 %High 40.0-72.0UnOhioHealth Dublin Methodist HospitalComment on above:Performed By: #### [id number] ####[facility] ([facility])[address] [place], [place] [address]NPFA (PER 100 WBCS) BY AUTOMATED COUNT0.0 %Qdqlaa1NtaswwubzwOhioHealth Dublin Methodist Hospital Comment on above:Performed By: #### [id number] ####[facility] ([facility])[address] [facility] [place] [address]GEOQNSRXM (10*3/UL) IN BLOOD AUTOMATED [id number] 10*3/bHCvwrom914-326VrvldvugmeOhioHealth Dublin Methodist HospitalComment on above: Performed By: #### [id number] ####[facility] ([facility])[address] [place], [place] [address]WLG (Bld) [#/Vol]3.82 10*6/uLNormal3.80-5.00UnOhioHealth Dublin Methodist HospitalComment on above:Performed By: #### [id number] ####[facility] (BEAKER)[address] [place], [place] [address]XFE (Bld) [#/Vol]10.47 10*3/uLNormal4.00-10.60UnOhioHealth Dublin Methodist HospitalComment on above: Performed By: #### [id number] ####[facility] ([facility])[address] [place], [place] [address]Wtkaljenm (Bld) [#/Vol]0.04 10*3/uLNormal0.00-0.20UnOhioHealth Dublin Methodist HospitalComment on above:Performed By: #### [id number] ####[facility] (BEAKER)[address] [place], [place] [address]Nceaatyww/100 WBC (Bld) 0.5 %Normal0.0-1.0UnOhioHealth Dublin Methodist HospitalComment on above:Performed By: #### [id number] ####[facility] (BE[facility]ER)[address] [place], [place] [address]Ofumqmxbxup (Bld) [#/Vol]0.21 10*3/uLNormal0.00-0.50UnOhioHealth Dublin Methodist HospitalComment on above:Performed By: #### [id number] ####[facility] (BEAKER)[address] [place], [place] [address]Wlvjjuxrjko/100 WBC (Bld)2.8 %Normal 0.0-6.0UnOhioHealth Dublin Methodist HospitalComment on above:Performed By: #### [id number] ####[facility] (BEAKER)[address] [place] [address] Erythrocyte distribution width (RBC) [Ratio]16.3 %High11.5-15.0UnOhioHealth Dublin Methodist HospitalComment on above:Performed By: #### [id number] ####[facility] ([facility])[address] [place], [place] [address]UZBOGOOFZLJ MEAN CORPUSCULAR HEMOGLOBIN CONCENTRATION (G/DL) BY ZBBMPFZLB19.6 g/dLLow32.0-35.0 [facility] - DublinComment on above:Performed By: #### [id number] ####[facility] ([facility])[address] [place], [place] [address]Phumrybnxw (Bld) [Volume fraction]34.5 %Low36.0-48.0UnOhioHealth Dublin Methodist HospitalComment on above:Performed By: #### [id number] ####[facility] ([facility])[address] [place], [place] [address]Jyqckqhjdb (Bld) [Mass/Vol]10.9 g/dLLow12.0-15.0UnOhioHealth Dublin Methodist HospitalComment on above:Performed By: #### [id number] ####[facility] ([facility])[address] [place], [place] [address]Aaebepnr granulocytes (Bld) [#/Vol]0.04 10*3/uLNormal0.00-0.20UnOhioHealth [facility] Hospital Comment on above:Performed By: #### [id number] ####[facility] ([facility])[address] [place], [place] [address]Dokrpvdb granulocytes/100 WBC (Bld)0.5 %Normal 0.0-1.0UnOhioHealth Dublin Methodist HospitalComment on above:Performed By: #### [id number] ####[facility] ([facility])[address] [place] [address] Lymphocytes (Bld) [#/Vol]1.83 10*3/uLNormal1.20-4.00UnOhioHealth Dublin Methodist HospitalComment on above:Performed By: #### [id number] ####[facility] ([facility])[address] [place], [place] [address]Kjirgreahhk/100 WBC (Bld)24.8 %Normal 20.0-45.0UnOhioHealth Dublin Methodist HospitalComment on above:Performed By: #### [id number] ####[facility] ([facility])[address] [place] [address]WYA (RBC) [Entitic mass]28.0 okLzlfkc64.0-33.0UnOhioHealth [facility] Hospital Comment on above:Performed By: #### [id number] ####[facility] ([facility])[address] [place] [address]YON (RBC) [Entitic vol]88.7 vMHmhopm48.0-98.0 [facility] - DublinComment on above:Performed By: #### [id number] ####[facility] ([facility])[address] [place], [place] [address]Jiwsumrmc (Bld) [#/Vol]0.70 10*3/uLNormal0.10-1.00UnOhioHealth Dublin Methodist HospitalComment on above:Performed By: #### [id number] ####[facility] ([facility])[address] [place], [place] [address]Hitsrleoi/100 WBC (Bld)9.5 %Normal5.0-12.0UnOhioHealth Dublin Methodist HospitalComment on above:Performed By: #### [id number] ####[facility] ([facility])[address] [facility] [place] [address]Bonsttekjvr (Bld) [#/Vol] 4.57 10*3/uLNormal1.60-7.60UnOhioHealth Dublin Methodist HospitalComment on above: Performed By: #### [id number] ####[facility] ([facility])[address] [facility] [place] [address]Tjhmkhxbkgu/100 WBC (Bld)61.9 %Guctbw35.0-72.0UnOhioHealth Dublin Methodist HospitalComment on above:Performed By: #### [id number] ####[facility] ([facility])[address] [facility] [place] [address]LPSR (PER 100 WBCS) BY AUTOMATED COUNT0.0 %Hbjxxd0DkgdcekgosOhioHealth Dublin Methodist HospitalComment on above: Performed By: #### [id number] ####[facility] ([facility])[address] [facility] [facility] [place] [address]ZSDWLGGXZ (10*3/UL) IN BLOOD AUTOMATED [id number] 10*3/uLNormal 150-400UnOhioHealth Dublin Methodist HospitalComment on above:Performed By: #### [id number] ####[facility] ([facility])[address] [place] [address]RZW (Bld) [#/Vol]3.89 10*6/uLNormal3.80-5.00UnOhioHealth [facility] Hospital Comment on above:Performed By: #### [id number] ####[facility] ([facility])[address] [facility] [place] [address]JMI (Bld) [#/Vol]7.39 10*3/uLNormal4.00-10.60 [facility] DublinComment on above:Performed By: #### [id number] ####[facility] ([facility])[address] [place], [place] [address]ZWLWCOYsb 44-63-8991WWGYZOBWbukarEkkkjemyaq of [facility] Medical CenterCONSULTNormal [facility] DublinMAGNESIUMon 64-47-1575Zmkfzsilr [Mass/Vol]1.9 mg/dLNormal1.9-2.7UnOhioHealth Dublin Methodist HospitalComment on above:Performed By: #### [id number] ####[facility] ([facility])[address] [place], [place] [address]Fonizvuvg [Mass/Vol]1.8 mg/dLLow1.9-2.7UnOhioHealth [facility] Hospital Comment on above:Performed By: #### [id number] ####[facility] ([facility])[address] [place], [place] [address]YXCH/MSSA DNA NASALon 72-01-5698XHOI DNANegative NormalNegativeUnOhioHealth Dublin Methodist HospitalComment on above:Order Comment: Testing methodology is [...] does not preclude nasal colonization.Performed By: #### [id number] ####[facility] ([facility])[address] [place], [place] [address]XGVF DNANegative NormalNegativeUnOhioHealth Dublin Methodist HospitalComment on above:Order Comment: Testing methodology is [...] does not preclude nasal colonization.Performed By: #### [id number] ####[facility] ([facility])[address] [place], [place] [address]LEWREVDFbe 71-17-8379QMMVLTIHMALQWD: 41.9 MIN K: 1723 MGY CONTRAST: 80 MLNormalUnOhioHealth Dublin Methodist HospitalNURSNOTEACT 225Normal [facility] - DublinNURSNOTEOk per Dr Van to give amiodarone patient HR 53NormalUniversKettering Health HamiltonOPNOTEon 77-08-2506VTLKKZ NormalUnOhioHealth Dublin Methodist HospitalPHOSPHORUSon 54-11-6985Xthhblgmm [Mass/Vol]4.5 mg/dLNormal2.5-5.0UnOhioHealth Dublin Methodist HospitalComment on above:Performed By: #### [id number] ####[facility] ([facility])[address] [place], [place] [address]QFWO ACTIVATED CLOTTING TIME UNSOLICITED RESULTSon 01-28-2024 POC ACTIVATED CLOTTING [id number] vjnPaej12-331YlautatlyeOhioHealth Dublin Methodist Hospital Comment on above:Performed By: #### [id number] ####[facility] ([facility])[address] [facility] [place] [address]OGUV GLUCOSE METER UNSOLICITED RESULTSon 01-28-2024 Glucose [Mass/Vol]112 mg/rKWdlf83-928RjezwupotcOhioHealth Dublin Methodist HospitalComment on above:Order Comment: Waived Testing in the ED is performed under the ED CLIA certificate #[id number].Result Comment: [id number] By: #### [id number] ####[facility])[address] [place] [address]Ursvhva [Mass/Vol]105 mg/fVKrloew23-552OymrnkarzkOhioHealth Dublin Methodist HospitalComment on above:Order Comment: Waived Testing in the ED is performed under the ED CLIA certificate #[id number].Result Comment: [id number] By: #### [id number] ####[facility] ([facility])[address] [place] [address]OING PERFUSION PANEL UNSOLICITED RESULTSon 01-98-0103GU3 [Moles/Vol]29.0 mmol/ZSljgzi80.0-29.0 [facility] - DublinComment on above:Performed By: #### [id number] ####[facility])[address] [place] [address]Hdpbkdm [Mass/Vol]139 mg/rOAgez44-370CfrtvgjytoOhioHealth Dublin Methodist HospitalComment on above:Performed By: #### [id number] ####[facility] ([facility])[address] [place] [address]GIF2 (Bld) [Moles/Vol]27.9 mmol/FKaaadu04.0-28.0UnOhioHealth Dublin Methodist HospitalComment on above:Performed By: #### [id number] ####[facility] ([facility])[address] [place] [address]Wjoetequto (Bld) [Volume fraction]33 %Wym04-23SbdoykgehpOhioHealth Dublin Methodist HospitalComment on above: Performed By: #### [id number] ####[facility] ([facility])[address] [place] [address]Velicjskib (Bld) [Mass/Vol]11.2 g/dLLow12.0-17.0UnOhioHealth Dublin Methodist HospitalComment on above:Performed By: #### [id number] ####[facility] ([facility])[address] [place] [address]LPWX BASE EXCESS2.0 mmol/LNormal-2.0-3.0UnOhioHealth Dublin Methodist HospitalComment on above: Performed By: #### [id number] ####[facility] ([facility])[address] [place] [address]LUEE IONIZED CALCIUM1.22 mmol/LNormal1.12-1.32UnOhioHealth Dublin Methodist HospitalComment on above:Performed By: #### [id number] ####[facility] ([facility])[address] [place] [address]VYJI KYI424.6 mmHgNormal 41.0-51.0UnOhioHealth Dublin Methodist HospitalComment on above:Performed By: #### [id number] ####[facility] [facility] [place] [address]JAZU PH 7.40Kvsxqy6.31-7.41UnOhioHealth Dublin Methodist HospitalComment on above:Performed By: #### [id number] ####[facility] ([facility])[address] [address]KLJE LC7014 zgBnKypj82-514WemzspruhpOhioHealth Dublin Methodist HospitalComment on above:Performed By: #### [id number] ####[facility] ([facility])[address] [address]SFQA SO298 %Esmlzl88-97VoyyykzuebOhioHealth Dublin Methodist Hospital Comment on above:Performed By: #### [id number] ####[facility] ([facility])[address] [address]Ekvlvjjjd [Moles/Vol]4.0 mmol/LNormal3.5-4.9 [facility] - DublinComment on above:Performed By: #### [id number] ####[facility] ([facility])[address] [place] [address]Dsujxd [Moles/Vol]142 mmol/ZAedwhc408.0-146.0UnOhioHealth Dublin Methodist HospitalComment on above:Performed By: #### [id number] ####[facility] ([facility])[address] [place], [place] [address]IGGGQJPDF, WHOLE BLOODon 17-80-1463Grbunufxm [Moles/Vol]3.9 mmol/LNormal3.5-5.1UnOhioHealth Dublin Methodist HospitalComment on above:Performed By: #### POTASSIUM, WHOLE BLOOD ####[facility] [id number] [place] [address] USAPROTIME-INRon 58-63-8534FXW IN PPP BY COAGULATION ASSAY1.95Poqe4.90-1.10UnOhioHealth Dublin Methodist HospitalComment on above:Result Comment: [facility] RECOMMENDED INR FOR WARFARIN THERAPY CONDITION INRPROPHYLAXIS OF VENOUS THROMBOSIS 2-3(HIGH-RISK SURGERY)TREATMENT OF VENOUS THROMBOSIS 2-3TREATMENT OF PULMONARY EMBOLISM 2-3PREVENTION OF SYSTEMIC EMBOLISM: 2-3 ACUTE MYOCARDIAL INFARCTION TISSUE HEART VALVES VALVULAR HEART DISEASE ATRIAL FIBRILLATION RECURRENT SYSTEMIC EMBOLISMMECHANICAL HEART VALVE 2.5-3.5 FROM: ORAL ANTICOAGULANTS. MECHANISM OF ACTION, CLINICAL EFFECTIVENESS, AND OPTIMAL THERAPE UTIC RANGE. CHEST 1995;108:231S-246S.Performed By: #### [id number] ####[facility] ([facility])[address] [place], [place] [address]XFEPXLJKWJK TIME (PT) IN PPP BY COAGULATION ASSAY14.5 NtoswbvOjwltg97.3-14.8[facility]arcenas Medical CenterComment on above:Performed By: #### [id number] ####[facility] ([facility])[address] [place], [place] [address]PXGUPD, WHOLE BLOODon 01-28-2024 SODIUM, WHOLE NRYMW569Pdkgch282-308OfimmowdxzOhioHealth Dublin Methodist HospitalComment on above:Performed By: #### SODIUM, WHOLE BLOOD ####[facility] [id number] [address] GZB83nl 28-04-746674AsrggzCdqxiiccre of [facility]edo Medical CenterAPTTon 19-47-7437GFCGFZEUQ PARTIAL THROMBOPLASTIN TIME IN PPP BY COAGULATION ASSAY32.6 MdztaaeXawkrp16.0-35.0UnOhioHealth Dublin Methodist Hospital Comment on above:Result Comment: Clinical significance of the APTT is questionable in the presence of heparin.Performed By: #### [id number] ####[facility] ([facility])[address] [place], [place] [address]HOD WITH AUTO DIFFERENTIALon 11-58-9269Xrkgjodfq (Bld) [#/Vol]0.03 10*3/uLNormal0.00-0.20 [facility] Hospital - DublinComment on above:Performed By: #### [id number] ####[facility])[address] [place], [place] [address]Iogqpjqph/100 WBC (Bld)0.4 %Normal0.0-1.0UnOhioHealth Dublin Methodist HospitalComment on above: Performed By: #### [id number] ####[facility] ([facility])[address] [place], [place] [address]Fjywvlkfxgo (Bld) [#/Vol]0.20 10*3/uLNormal0.00-0.50 [facility] - DublinComment on above:Performed By: #### [id number] ####[facility] ([facility])[address] [place], [place] [address]Lnndlhwvaef/100 WBC (Bld)2.7 %Normal0.0-6.0UnOhioHealth Dublin Methodist HospitalComment on above: Performed By: #### [id number] ####[facility] ([facility])[address] [place], [place] [address]Rwredpnchba distribution width (RBC) [Ratio]15.8 %High 11.5-15.0UnOhioHealth Dublin Methodist HospitalComment on above:Performed By: #### [id number] ####[facility])[address] [place] [address] ERYTHROCYTE MEAN CORPUSCULAR HEMOGLOBIN CONCENTRATION (G/DL) BY WIOTNOERM00.0 g/yWPfjaid76.0-35.0UnOhioHealth Dublin Methodist HospitalComment on above:Performed By: #### [id number] ####[facility])[address] [place], [place] [address]Xjegzduetj (Bld) [Volume fraction]36.3 %Prvowq03.0-48.0UnOhioHealth Dublin Methodist HospitalComment on above:Performed By: #### [id number] ####[facility])[address] [place], [place] [address]Uflmqysmmv (Bld) [Mass/Vol]11.6 g/dL Low12.0-15.0UnOhioHealth Dublin Methodist HospitalComment on above:Performed By: #### [id number] ####[facility])[address] [place] [address] Immature granulocytes (Bld) [#/Vol]0.05 10*3/uLNormal0.00-0.20UnOhioHealth Dublin Methodist HospitalComment on above:Performed By: #### [id number] ####[facility] ([facility])[address] [place], [place] [address]Ufdobjdl granulocytes/100 WBC (Bld)0.7 %Normal0.0-1.0UnOhioHealth Dublin Methodist HospitalComment on above: Performed By: #### [id number] ####[facility] ([facility])[address] [place], [place] [address]Zjeuyimlirs (Bld) [#/Vol]1.81 10*3/uLNormal1.20-4.00 [facility] - DublinComment on above:Performed By: #### [id number] ####[facility] ([facility])[address] [place] [address]Qikghgrpsjp/100 WBC (Bld)24.0 %Crwrvv03.0-45.0UnOhioHealth Dublin Methodist HospitalComment on above:Performed By: #### [id number] ####[facility])[address] [place] [address]MRE (RBC) [Entitic mass]28.6 kvLtttnn48.0-33.0UnOhioHealth Dublin Methodist HospitalComment on above:Performed By: #### [id number] ####[facility])[address] [place], [place] [address]BHY (RBC) [Entitic vol] 89.6 gKKwcwmx54.0-98.0UnOhioHealth Dublin Methodist HospitalComment on above: Performed By: #### [id number] ####[facility])[address] [place], [place] [address]Tibquwyse (Bld) [#/Vol]0.62 10*3/uLNormal0.10-1.00UnOhioHealth Dublin Methodist HospitalComment on above:Performed By: #### [id number] ####[facility])[address] [place] [address]Jyyztkcoo/100 WBC (Bld) 8.2 %Normal5.0-12.0UnOhioHealth Dublin Methodist HospitalComment on above:Performed By: #### [id number] ####[facility] ([facility])[address] [facility] [place], [place] [address]Uoqniuagvie (Bld) [#/Vol]4.82 10*3/uLNormal1.60-7.60UnOhioHealth Dublin Methodist HospitalComment on above:Performed By: #### [id number] ####[facility] ([facility])[address] [place], [place] [address]Yqguvwyzemr/100 WBC (Bld)64.0 %Normal 40.0-72.0UnOhioHealth Dublin Methodist HospitalComment on above:Performed By: #### [id number] ####[facility])[address] [place] [address]OOQN (PER 100 WBCS) BY AUTOMATED COUNT0.0 %Rdclmf1AmspklgmzmOhioHealth Dublin Methodist Hospital Comment on above:Performed By: #### [id number] ####[facility])[address] [place] [address]UYGFQXDNN (10*3/UL) IN BLOOD AUTOMATED [id number] 10*3/nYHwoygu815-847QmxqqafpzoOhioHealth Dublin Methodist HospitalComment on above: Performed By: #### [id number] ####[facility])[address] [place], [place] [address]FSB (Bld) [#/Vol]4.05 10*6/uLNormal3.80-5.00UnOhioHealth Dublin Methodist HospitalComment on above:Performed By: #### [id number] ####[facility])[address] [place], [place] [address]DYG (Bld) [#/Vol]7.53 10*3/uLNormal4.00-10.60UnOhioHealth Dublin Methodist HospitalComment on above: Performed By: #### [id number] ####[facility])[address] [place], [place] [address]DQLFJZTCPSWLI METABOLIC PANELon 12-34-9351Nqnnmqb [Mass/Vol] 3.7 g/dLNormal3.5-5.7UnOhioHealth Dublin Methodist HospitalComment on above: Performed By: #### [id number] ####[facility])[address] [place], [place] [address]ARX [Catalytic activity/Vol]81 U/WUkisoz19-779QxvktjsqkpOhioHealth Dublin Methodist HospitalComment on above:Performed By: #### [id number] ####[facility])[address] [place], [place] [address]TNN [Catalytic activity/Vol]9 U/L Normal7-52UnOhioHealth Dublin Methodist HospitalComment on above:Performed By: #### [id number] ####[facility] ([facility])[address] [place], [place] [address]Utynj gap [Moles/Vol]10 mmol/LNormal7-20UnOhioHealth Dublin Methodist HospitalComment on above:Performed By: #### [id number] ####[facility] ([facility])[address] [place], [place] [address]CAY [Catalytic activity/Vol]13 U/DJssaqt45-13IwoszdfmoeOhioHealth Dublin Methodist HospitalComment on above:Performed By: #### [id number] ####[facility] ([facility])[address] [place], [place] [address]Cfxwdbzxs [Mass/Vol]0.8 mg/dL Normal0.3-1.0UnOhioHealth Dublin Methodist HospitalComment on above:Performed By: #### [id number] ####[facility])[address] [place] [address] Calcium [Mass/Vol]9.0 mg/dLNormal8.6-10.3UnOhioHealth Dublin Methodist Hospital Comment on above:Performed By: #### [id number] ####[facility] ([facility])[address] [place], [place] [address]Qpyvcehh [Moles/Vol]106 mmol/AOsvqpa13-620 [facility] - DublinComment on above:Performed By: #### [id number] ####[facility] ([facility])[address] [place], [place] [address] [Moles/Vol] 27 mmol/IGgrype98-82YtsnpmrthfOhioHealth Dublin Methodist HospitalComment on above: Performed By: #### [id number] ####[facility] ([facility])[address] [place], [place] [address]Lujupkgper [Mass/Vol]1.14 mg/dLNormal0.60-1.20UnOhioHealth Dublin Methodist HospitalComment on above:Performed By: #### [id number] ####[facility] ([facility])[address] [place], [place] [address]ZWHQJZWXLE FILTRATION RATE ML/MIN/1.73 SQ M.DWLERSFVV09.7 mL/min/1.73m*2Low>60.0UnOhioHealth Dublin Methodist Hospital Comment on above:Result Comment: The [facility]???s estimated glomerular filtration rate (eGFR) will no [...] anyone group of individuals.Performed By: #### [id number] ####[facility])[address] [place] [address]Fognoiz [Mass/Vol]88 mg/mOAqaryl49-861YbtpjthmsaOhioHealth Dublin Methodist HospitalComment on above:Performed By: #### [id number] ####[facility])[address] [place] [place] [address]Hbvyhmabi [Moles/Vol]3.8 mmol/LNormal3.5-5.1UnOhioHealth Dublin Methodist HospitalComment on above:Performed By: #### [id number] ####[facility])[address] [place] [place] [address]Nheibsp [Mass/Vol]5.9 g/dLLow 6.0-8.3UnOhioHealth Dublin Methodist HospitalComment on above:Performed By: #### [id number] ####[facility])[address] [place] [place] [address]Ynxsna [Moles/Vol]139 mmol/QTclfoj214-199IzdmgrofmcOhioHealth Dublin Methodist HospitalComment on above:Performed By: #### [id number] ####[facility])[address] [place], [place] [address]Mkev nitrogen [Mass/Vol]20 mg/dLNormal7-25UnOhioHealth Dublin Methodist HospitalComment on above:Performed By: #### [id number] ####[facility])[address] [place] [address]BFJR NITROGEN/CREATININE (MASS RATIO) IN SER/PLAS17.5NormalUniSalem Regional Medical CenterComment on above: Performed By: #### [id number] ####[facility])[address] [place] [address]FOYKLKLfa 18-63-5438GWGDHPJDymakmLravaczitt of [facility] Medical CenterCT ABDOMEN PELVIS W IV CONTRASTon 42-62-5735IHN ABDOMEN PELVIS W IV CONTRASTNormal [facility] - DublinCTA CHEST W IV CONTRASTon 65-32-9254GNB CHEST W IV CONTRASTNormalUniversWestern Reserve HospitalPROVon 73-82-3816AXERFY NormalUnOhioHealth Dublin Methodist HospitalHPon 45-62-9599VRQahepxInanpbkrueSalem Regional Medical CenterLACTIC ACID WITH 4 HOUR REFLEXon 48-59-5123HAZRNBP (MMOL/L) IN SER/PLAS0.7 mmol/LNormal0.5-2.2[facility] - DublinComment on above:Performed By: #### [id number] ####[facility])[address] [place] [address]QQYQENas 57-45-1349DVRLWI (U/L) IN SER/PLAS18 U/OZsisgd52-29 [facility] - DublinComment on above:Performed By: #### [id number] ####[facility])[address] [place], [place] [address]SHIRPYQDVlz 19-61-0430Befylssyb [Mass/Vol]1.9 mg/dLNormal1.9-2.7[facility] - DublinComment on above:Performed By: #### [id number] ####[facility])[address] [place], [place] [address]MYRL GLUCOSE METER UNSOLICITED RESULTS on 45-34-7904Efdswxa [Mass/Vol]158 mg/vLIgrz94-338VuihypvjwyOhioHealth Dublin Methodist HospitalComment on above:Order Comment: Waived Testing in the ED is performed under the ED CLIA certificate #[id number].Result Comment: vuomfbz37Zpxicrypl By: #### [id number] ####[facility])[address] [place] [address] Glucose [Mass/Vol]86 mg/tJHafcpz19-789QezshndixdOhioHealth Dublin Methodist HospitalComment on above:Order Comment: Waived Testing in the ED is performed under the ED CLIA certificate #[id number].Result Comment: hpxezpz83Oebszyayj By: #### [id number] ####[facility])[address] [place] [address]Sbqrcex [Mass/Vol]99 mg/wEHrznoz43-441XidydufhhmOhioHealth Dublin Methodist HospitalComment on above:Order Comment: Waived Testing in the ED is performed under the ED CLIA certificate #[id number].Result Comment: idlqwed34Wjoyeavtw By: #### [id number] ####[facility])[address] [facility] [place] [address]WAKHJZP-GFObk 72-79-4030RPP IN PPP BY COAGULATION ASSAY1.61Ympq8.90-1.10UnOhioHealth Dublin Methodist HospitalComment on above:Result Comment: [facility] RECOMMENDED INR FOR WARFARIN THERAPY CONDITION INRPROPHYLAXIS OF VENOUS THROMBOSIS 2-3(HIGH-RISK SURGERY)TREATMENT OF VENOUS THROMBOSIS 2-3TREATMENT OF PULMONARY EMBOLISM 2-3PREVENTION OF SYSTEMIC EMBOLISM: 2-3 ACUTE MYOCARDIAL INFARCTION TISSUE HEART VALVES VALVULAR HEART DISEASE ATRIAL FIBRILLATION RECURRENT SYSTEMIC EMBOLISMMECHANICAL HEART VALVE 2.5-3.5 FROM: ORAL ANTICOAGULANTS. MECHANISM OF ACTION, CLINICAL EFFECTIVENESS, AND OPTIMAL THERAPE UTIC RANGE. CHEST 1995;108:231S-246S.Performed By: #### [id number] ####[facility] ([facility])[address] [place], [place] [address]XWMVDCKOZZJ TIME (PT) IN PPP BY COAGULATION ASSAY14.8 AyguorzKihiwt96.3-14.8UnOhioHealth Dublin Methodist HospitalComment on above:Performed By: #### [id number] ####[facility] ([facility])[address] [place], [place] [address]JTWGGFRH Ion 72-44-3958Hfeocqlf I.cardiac [Mass/Vol]0.02 ng/mLNormal0.00-0.04UnOhioHealth Dublin Methodist Hospital Comment on above:Performed By: #### [id number] ####[facility])[address] [place], [place] [address]TWHR AND SCREENon 94-50-7247OB SCREENNegativeNormal [facility] - DublinComment on above:Performed By: #### [id number] ####[facility],ABO group Nom (Bld)ONormalUnOhioHealth Dublin Methodist HospitalComment on above:Performed By: #### [id number] ####[facility],RH TYPE IN BLOODPositiveNormalUniSalem Regional Medical CenterComment on above:Performed By: #### [id number] ####[facility],36on 32-84-945317MvygfwEepccfcdnm of [facility]edo Medical CenterAlanine aminotransferase [Enzymatic activity/volume] in Serum or PlasmaOrdered By: Anju Lees on 02-92-7225VPB [Catalytic activity/Vol]11 U/L 7-52[facility] HospitalAlbumin [Mass/volume] in Serum or Plasma by Bromocresol green (BCG) dye binding methoOrdered By: Anju Lees on 56-92-1106Idlsnzc BCG dye [Mass/Vol]3.7 g/dL3.5-5.7FAdena Pike Medical CenterAlkaline phosphatase [Enzymatic activity/volume] in Serum or PlasmaOrdered By: Anju Lees on 11-48-2526UPR [Catalytic activity/Vol]110 U/L34-104 [facility] HospitalAspartate aminotransferase [Enzymatic activity/volume] in Serum or PlasmaOrdered By: Anju Lees on 37-33-7364VFJ [Catalytic activity/Vol]16 U/X66-31JepqxywklPromedica Defiance Regional HospitalBasophils Auto (Bld) [#/Vol]Ordered By: Anju Lees on 68-38-5100Hqotupdih (Bld) [#/Vol]0.1 10*3/uL0.0-0.2FAdena Pike Medical CenterBasophils/100 WBC Auto (Bld)Ordered By: Anju Lees on 22-07-0106Ydvlockgi/100 WBC (Bld)0.6 %. [facility] HospitalBilirubin.total [Mass/volume] in Serum or PlasmaOrdered By: Anju Lees on 16-61-0659Wcwpbzled [Mass/Vol]0.5 mg/dL 0.3-1.0[facility] HospitalCalcium [Mass/volume] in Serum or Plasma Ordered By: Anju Lees 31-87-5093Xyobism [Mass/Vol]9.5 mg/dL8.6-10.3 [facility] HospitalCarbon dioxide, total [Moles/volume] in Serum or PlasmaOrdered By: Anju Lees on 33-85-7749JB3 [Moles/Vol]31.9 mmol/L 21.0-31.0[facility] HospitalChloride [Moles/volume] in Serum or PlasmaOrdered By: Anju Lees 73-17-3300Dxfvdjto [Moles/Vol]102 mmol/L 98-107Prom[facility] HospitalCreatinine [Mass/volume] in Serum or PlasmaOrdered By: Anju Lees 09-61-3447Ppddjqvieg [Mass/Vol]1.01 mg/dL 0.60-1.20[facility] HospitalEosinophils Auto (Bld) [#/Vol]Ordered By: Anju Lees on 60-21-3813Gkyoaioffku (Bld) [#/Vol]0.3 10*3/uL0.0-0.45 [facility] HospitalEosinophils/100 WBC Auto (Bld)Ordered By: Anju Lees on 88-87-0981Irzxinzhqwv/100 WBC (Bld)3.1 %.[facility] HospitalErythrocyte distribution width Auto (RBC) [Ratio]Ordered By: Anju Lees on 35-05-5923Zutzqvtyqpi distribution width (RBC) [Ratio]16.3 % 11.9-15.3FAdena Pike Medical CenterGlobulin Calc (S) [Mass/Vol]Ordered By: Anju Lees on 02-34-8620Djffwzwg (S) [Mass/Vol]2.0 g/dLPromedica Defiance Regional HospitalGlucose [Mass/volume] in Serum or PlasmaOrdered By: Anju Lees on 64-50-0839Wiralzc [Mass/Vol]89 mg/sC20-357LmqahuajzPromedica Defiance Regional HospitalHematocrit Auto (Bld) [Volume fraction]Ordered By: Anju Lees on 19-10-9634Pzssbuepvb (Bld) [Volume fraction]33.3 %34.0-46.4FAdena Pike Medical CenterHemoglobin [Mass/volume] in BloodOrdered By: Anju Lees on 40-02-2647Ckndtosgol (Bld) [Mass/Vol]11.1 g/dL11.8-15.4FAdena Pike Medical CenterLeukocytes [#/volume] corrected for nucleated erythrocytes in Blood by Automated counOrdered By: Anju Lees on 79-98-3171WPB corrected for nucl RBC Auto (Bld) [#/Vol]9.1 10*3/uL3.8-11.6FAdena Pike Medical Center Lymphocytes Auto (Bld) [#/Vol]Ordered By: Anju Lees on 04-17-2023 Lymphocytes (Bld) [#/Vol]2.1 10*3/uL1.00-4.8[facility] Lymphocytes/100 WBC Auto (Bld)Ordered By: Anju Lees on 04-17-2023 Lymphocytes/100 WBC (Bld)22.7 %.[facility] Regional HospitalMCH Auto (RBC) [Entitic mass]Ordered By: Anju Lees on 43-70-1966NCJ (RBC) [Entitic mass] 27.9 pg24.7-34.3FAdena Pike Medical CenterMCHC Auto (RBC) [Mass/Vol] Ordered By: Anju Lees on 69-75-7420GZMP (RBC) [Mass/Vol]33.4 g/dL32.0-35.0 [facility] HospitalMCV Auto (RBC) [Entitic vol]Ordered By: Anju Lees on 75-64-8391PLC (RBC) [Entitic vol]83.3 qT89-205DzscwyiibPromedica Defiance Regional HospitalMonocytes Auto (Bld) [#/Vol]Ordered By: Anju Lees on 89-80-9484Txscvommh (Bld) [#/Vol]0.6 10*3/uL0.0-0.8Prom[facility] HospitalMonocytes/100 WBC Auto (Bld)Ordered By: Anju Lees on 04-17-2023 Monocytes/100 WBC (Bld)6.5 %.Prom[facility] Regional HospitalNeutrophils Auto (Bld) [#/Vol]Ordered By: Anju Lees on 58-85-5457Aavsimbebrz (Bld) [#/Vol] 6.1 10*3/uL1.8-7.7FAdena Pike Medical CenterNeutrophils/100 WBC Auto (Bld)Ordered By: Anju Lees on 41-94-3988Ncbqwnubtxo/100 WBC (Bld)67.1 %. [facility] HospitalNo Panel InformationOrdered By: Anju Lees on 46-68-6234Ifooszzcf GFR (CKD-EPI)56.627 mL/MinPromedica Defiance Regional HospitalPharmacy Creatinine Clearance (ChemN/AFAdena Pike Medical Center Nucleated erythrocytes [Presence] in Blood by Automated countOrdered By: Anju Lees on 76-62-3723Sfdbdbfwg RBC Auto Ql (Bld)0.1 /100{WBC}0-0.5FAdena Pike Medical CenterPlatelet mean volume Auto (Bld) [Entitic vol]Ordered By: Anju Lees on 55-53-2800Mkfqtuni mean volume (Bld) [Entitic vol]8.7 fL 6.3-10.7FAdena Pike Medical CenterPlatelets Auto (Bld) [#/Vol]Ordered By: Anju Lees on 70-85-4406Eockeslex (Bld) [#/Vol]249 10*3/pL614-603BurapekngPromedica Defiance Regional HospitalPotassium [Moles/volume] in Serum or PlasmaOrdered By: Anju Lees on 60-10-4833Svdnamnji [Moles/Vol]4.2 mmol/L3.5-5.1FAdena Pike Medical CenterProtein [Mass/volume] in Serum or PlasmaOrdered By: Anju Lees on 43-82-4578[place] [Mass/Vol]5.7 g/dL6.4-8.9[facility] HospitalRBC Auto (Bld) [#/Vol]Ordered By: Anju Lees on 72-95-7998FMQ (Bld) [#/Vol]4.00 10*6/uL3.60-5.00[facility] Hospitalerum or plasma albumin/globulin mass ratioOrdered By: Anju Lees on 04-17-2023 Albumin/Globulin [Mass ratio]1.9 {ratio}[facility] Hospitalerum or plasma anion gap determinationOrdered By: Anju Lees on 92-35-5121Iagfc gap [Moles/Vol]10.3 mmol/L6.0-15.0[facility] Hospitalodium [Moles/volume] in Serum or PlasmaOrdered By: Anju Lees on 05-25-5382Aukgci [Moles/Vol]140 mmol/E928-553StzrjcchgPromedica Defiance Regional HospitalUrea nitrogen [Mass/volume] in Serum or PlasmaOrdered By: Anju Lees on 81-63-8610Evns nitrogen [Mass/Vol]23 mg/dL7-25[facility] HospitalWBC Auto (Bld) [#/Vol]Ordered By: Anju Lees on 29-56-9332LCP (Bld) [#/Vol]9.1 10*3/uL 3.8-11.6FAdena Pike Medical CenterECHOCARDIO M/2D COMPLETEon 05-29-2022 ECHOCARDIO M/2D COMPLETEPatient: SHAYY MAYNARDNaya Exam Date: 05/29/2022 : 1945 Gender:F Ordering : DR VELASQUEZ BUNCH . Admission #: [id number] Family : Order #: [id number] CLICK HERE TO VIEW EXAM ECHOCARDIOGRAM REPORT [...] by: Moises Shore M.D. on 05/30/2022 at 18:32[facility]I BRAIN WO CONon [id number] BRAIN WO CONEXAMINATION: MRI BRAIN WO CON, [...] Electronically authenticated by: RENATA GAYTAN Date: 2022-05-29 13:51[facility] CAROTID ART BILon [id number] CAROTID ART BILEXAMINATION: US CAROTID ART JONY [...] Electronically authenticated by: RENATA GAYTAN Date: 2022-05-29 12:55[facility] HospitalCovid-[facility] PCR (CVDTBH)on [id number]-CoV-2 (COVID-19) RNA ARMIN+probe Ql (Unsp spec)Not detectedNormalNOT DETECTEDThe [facility] [facility] Comment on above:Result Comment: This test is not yet approved or cleared by the [place] FDA. When there are no FDA-approved or cleared tests available, and other criteria are met, FDA can make tests available under an emergency access mechanism called an Emergency Use Authorization (EUA). The EUA for this test is supported by the [place] of Health and Human Service's (HHS's) declaration [...] consistent with SARS-CoV-2.Performed By: #### CVDTBH #### [facility] [address] [address] [address] Samuel KangAmbulatory Clinical Summaryon 85-29-3654Wbaevqujkh Clinical Summary{46-b8-lq-23-91-95-54-da-9m-sx-41-03-b5-9e-fb-7c}CD:713854RxzwloRiiimrKettering Health TroyPatient Educationon 78-20-9645Zrdutug EducationNutrition Calorie Counting for Weight Loss Calories [...] serving sizes. You could (more content not included)...[facility] InstituteUrology Office/Clinic Noteon 64-86-4077Bayzxbt Office/Clinic NoteChief Complaint Pt is here for [...] When Contact Information Tushar Nunez MD, Jude L, URO In 6 months [phone] Additional Instructions: Patient Education Calorie Counting for Weight Loss IAnastasia, personally scribed for Dr. Armando on 09/11/2020 [...] Recorded SARS-CoV-2 (COVID-19) mR (more content not included)...[facility] InstituteComment on above:Result Comment: Electronically Signed By: Thuan ARMANDO MD\.br\Date and Time Signed: 09/11/20 16:11 EDT\.br\Electronically Co- Signed By: Anastasia Cabral\.br\Date and Time Co-Signed: 09/11/20 16:08 EDT Ambulatory Clinical Summaryon 16-11-9717Myflpbzdqv Clinical Summary {32-i4-l7-r9-78-ya-23-46-or-u3-vq-43-aa-15-31-5f}CD:028622SxhkdyJumqkcKettering Health TroyPatient Educationon 08-54-1674Oytecom EducationUrology Urinary Incontinence Urinary incontinence refers to [...] stimulation). ? For women, using a medical representative to prevent urine leaks. This is a [...] after experiencing incontinence. General instructions ? Take xaxm-jnw-zvhzczv and prescription medicines only as (more content not included)...[facility] InstituteUrology Office/Clinic Noteon 52-13-6578Bxrraoy Office/Clinic NoteChief Complaint 2 week PO This [...] Jude Farias, URO [address] Additional Instructions: 1mos. f/u Patient Education Urinary [...] with dilation of urethral (more content not included)...[facility] InstituteComment on above: Result Comment: Electronically Signed By: Tushar Nunez MD, Jude Farias\.br\Date and Time Signed: 08/08/2110:28 EDT\.br\Electronically Co-Signed By: Kisha Stevens MA\.br\Date and Time Co-Signed: 08/08/20 11:15 EDTOperative Reporton 49-87-6096Ickqmcjpp [id number]#1.00CD:127 [facility] InstitutePathology Noteon 13-45-4986Bjvbzrfil Note [id number]#1.00CD:[address] [place], [place] [address]Comment on above:Result Comment: Electronically Signed By: Tushar Nunez MD, Jude Pham.br\Date and Time Signed: 08/07/2110:22 EDTECG 12-Leadon 27-01-3979HLD 12-[id number]#1.00CD:[address] [place] [address] Note-Physicianon 03-68-7176VP Note-Physician [id number]#1.00CD:[address] [place], [place] [address]Lab Reportson 44-30-1785Bcf Reports [id number]#1.00CD:[address] [place] [address] Bsi[id number]#1.00CD:[address] [place], [place] [address]RAD - MISCon 70-61-5292DPN - MISC [id number]#1.00CD:[address] [place], [place] [address]Insurance Correspondence Officeon 99-59-6764Ikxdjaiol Correspondence [id number]#1.00CD:[address] [place], [place] [address]Operative Reporton 16-24-8892Bheumrcgl Report [id number]#1.00CD:[address] [place], [place] [address]Physician Orderon 15-19-5081Ykwlwcoig Order [id number]#1.00CD:[address] [place], [place] [address]Pre-Authorization for Medical Treatmenton 04-14-8059Dmy-Authorization for Medical [id number]#1.00CD:[address] [place], [place] [address]Ambulatory Clinical Summaryon 74-97-2771Sdlaclxcbf Clinical Summary{42-bx-96-zt-25-0t-36-70-02-33-48-35-45-4e-56-ed}CD:412117Tqqxla Ohio[facility] Shelby HospitalPatient Educationon 31-45-4191Kgwkmwh Education Obstetrics and Gynecology Urethral Vaginal Sling [...] including vitamins, herbs, eye drops, creams, and hyzi-syk-pukuoae medicines. ? Any problems you or family [...] diabetes medicines or blood thinners. ? Taking qubz-xhb-npxylus medicines, vitamins, herbs, and supplements. ? Taking [...] not intended to r (more content not included)...[facility] InstituteUrology Office/Clinic Noteon 00-47-9024Ldycpty Office/Clinic NoteChief Complaint 3 week follow up This patient is a 75-year-old female with a history of a grade 2 midline cystocele. She is here today to discuss treatment options. She does have some symptoms of stress incontinence. She underwent cystoscopic examination with dilation of her urethra on May 08 2020. [facility] Staff Shayy is a 75 y.o. [...] urine and/or bladder capacity by US- non-imaging 82216 Urnls Dip Stick Auto w/o Microscopy POC 04711 Urology Procedure Order 2. Cystocele with prolapse [...] stricture, not elsewhere classified, female) S/P Cysto/UD 04/22/21. Pt states that since the UD she is still having leakage. Ordered: Urology Procedure Order I have reviewed the previous health record information and history for this patient from Dr. Finley Follow-up With When Contact Information Tushar Nunez MD, Jude Farias, URO [facility] [address] [place] [address]- Additional Instructions: Patient Education Urethral Vaginal Sling [...] History of UTI Hypertensio (more content not included)...[facility] Comment on above:Result Comment: Electronically Signed By: Jude Finley Jr., MD\.br\Date and Time Signed: 07/11/2113:49 EDT\.br\Electronically Co-Signed By: Libby Chambers MA\.br\Date and Time Co-Signed: 07/11/20 14:30 EDTAmbulatory Clinical Summaryon 25-35-6285Beblqwzocn Clinical Summary {b6-21-64-33-o9-4u-5g-84-87-8p-24-8t-3f-aa-b3-7a}CD:570301ScexzoWbjiesKettering Health TroyPatient Educationon 41-44-9139Kpqmgin EducationUrology Urethral Dilation Urethral dilation is a [...] including vitamins, herbs, eye drops, creams, and sjil-uyb-pxwageq medicines. ? Any problems you or family [...] tells you to take them. ? Taking uabp-fka-cyxderm medicines, vitamins, herbs, and supplements. General instructions [...] these instructions at home: Medicines ? Take brrs-ggv-sqyztdc and prescription medicines only as told by [...] to prevent or treat constipation: ? Take xyvt-dbm-xocekxc or prescription medicines. ? Eat foods that [...] urinate. ? You pa (more content not included)...NormalNov[facility] Healther [facility] CenterUrology Office/Clinic Noteon 90-60-4730Tpyijqh Office/Clinic NoteChief Complaint Patient is here for [...] Urnls Dip Stick Auto w/o Microscopy POC 55815 I have reviewed the previous health record information and history for this patient from Dr. Finley Follow-up With When Contact Information Tushar Nunez MD, Jude Farias, URO [facility] [address], [place] [address]- Additional Instructions: 2 weeks Patient Education Urethral Dilation Maria Del Carmen Nicolas personally scribed for Dr. Finley on 06/20/2020 14:23:50. . Documentation recorded by the scribe, Maria Del Carmen Hernandez, accurately reflects the services(s) I performedand decisions made by me. Authenticated by Dr. Finley on 06/20/2020 14:34:50. Problem List/Past Medical History Ongoing Arthritis Asthma Bladder infection Bladder outlet obstruction COPD mixed type (more content not included)...[facility] Comment on above:Result Comment: Electronically Signed By: Tushar Nunez MD, Jude Farias\.br\Date and Time Signed: 06/20/2113:36 EDT\.br\Electronically Co-Signed By: Maria Del Carmen Hernandez MA\.br\Date and Time Co-Signed: 06/20/2113:24 EDTCoding Summary. on 17-51-8990Btoiga Summary. CD:188801HH:8987624OYh3fEe+PGhlYWQ+EP8UKHNuP85hpDLamQ1QY5hOQG5CBVGGXMJRZK4SQO3xv ZQ5OSdcX0QrhhJt [file] bGxh (more content not included)...NormalOhiohealth Shelby HospitalConsent for Procedure/Surgeryon 75-01-5368Qfemtmz for Procedure/Surgery [id number]#1.00CD:127[facility] InstituteConsent for Treatmenton 48-47-7810Dbxplkc for Treatment [id number]#1.00CD:127[facility] InstituteDischarge Instructionson 30-00-4289Mbbbttrjz Instructions [id number]#1.00CD:127[facility] InstituteIntraOperative Documentson 60-81-9345IziaaEsvxeuoen Documents [id number]#1.00CD:[address] [place], [place] [address]Main OR Intraoperative Recordon 91-22-9780Ifkr OR Intraoperative Record IntraOp Document Type FTURO Summary Primary Physician: Tushar Nunez MD, Jude Farias Finalized Date/Time: 06/15/20 15:02:47 Pt. Name: SHAYY MAYNARD /Sex: 1945 Female Med Rec #: [id number] Physician: Tushar Nunez MD, Jude Farias Financial #: [id number] Pt. Type: O Room/Bed: / Admit/Disch: 06/15/20 13:40:05 - Institution: Case Times FTURO Entry 1 Patient Times In Room 06/15/20 14:48:00 Out Room 06/15/20 15:02:00 Procedure Times Start 06/15/20 14:50:00 Stop 06/15/20 14:52:00 Anesthesia Times Last Modified By: Vishal Manuel RN 06/15/20 15:02:42 Case Attendance FTURO Entry 1 Entry 2 Entry 3 Case Attendee Tushar Nunez MD, Jude Herrera TUBE WASHER, Pauly Manuel RN, Vishal Douglass Role Performed Surgeon - Primary Scrub - Primary Missile Inspector - Primary Time In 06/15/20 14:48:00 06/15/20 14:48:00 06/15/20 14:48:00 Time Out 06/15/20 15:02:00 06/15/20 15:02:00 06/15/20 15:02:00 Procedure CYSTOSCOPY LOCAL(.) CYSTOSCOPY LOCAL(.) CYSTOSCOPY LOCAL(.) Comments Last Modified By: Vishal Manuel RN RN, Vishal Naqvi RN 06/15/20 15:02:43 06/15/20 [...] MD, Jude Farias, Verified (If Participants [place]auly galarza CST, Applicable) Vishal Manuel RN Time Out Complete [...] By: Vishal Manuel RN 06/15/20 15:02NoKettering Health TroyMain OR Preoperative Recordon 76-19-4125Qxft OR Preoperative RecordHolding Area Document Type FTURO Summary Primary Physician: Jude Finley Jr., MD Finalized Date/Time: 06/15/20 14:34:27 Pt. Name: ALEXSHAYYO.B./Sex: 1945 Female Med Rec #: [id number] Physician: Jude Finley Jr., MD Financial #: [id number] Pt. Type: O Room/Bed: / Admit/Disch: 06/15/20 [...] 14:25 Vishal Manuel RN 06/15/20 14:34NoKettering Health TroyOperative Reporton 97-77-8181Zqczitxoh ReportPatient: ALEX, SHAYY A Age: 75 years Sex: Female : 1945 [...] urine. The Urethra was dilated to: 24 Monegasque w/ sounds. Devices Implanted: None. Removal: Cystoscope is removed, The patient tolerated it well. Postoperative Information Discharge: Patient is discharged home with antibiotic coverage, Follow up arranged, Office visit will be planned to make arrangements for repair of cystocele..[facility] InstituteComment on above:Result Comment: Electronically Signed By: Tushar Nunez MD, Jude Farias\.br\Date and Time Signed: 06/15/2113:59 EDTPre-Authorization for Medical Treatmenton 52-50-4357Tby- Authorization for Medical Treatment [id number]#1.00CD:127NoKettering Health TroyAmbulatory Clinical Summaryon 11-94-9566Bhzqywfvcm Clinical Summary {4x-9f-fv-84-p5-25-68-79-35-97-t2-5r-f2-02-f9-5b}CD:186135QhptnnPupypyKettering Health TroyPatient Educationon 62-68-1129Bjyyvjm EducationUrology Urinary Incontinence Urinary incontinence refers to [...] stimulation). ? For women, using a medical representative to prevent urine leaks. This is a [...] after experiencing incontinence. General instructions ? Take sihe-nvl-gsfadsb and prescription medicines only as (more content not included)...[facility] InstituteUrology Office/Clinic Noteon 91-25-3330Jjahbqx Office/Clinic NoteChief Complaint Patient is here for a follow up to [facility] for ball like object HPI Staff Shayy is a 75 y.o. female here for follow up to [facility] [place] [facility] for bladder hanging out, patient insists on planning surgery. Previous Dx: bladder infection, bladder outlet obstruction, dysuria, flank pain, gross hematuria, history of UTI, retention of urine, urethral stricture. 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 Patient was seen at [facility] on 06/07/20 for a ball like [...] Contact Information Tushar Nunez MD, Jude Farias [phone] Additional Instructions: Patient Education Urinary Incontinence Anastasia Nicolas, personally scribed for Dr. Finley on 06/12/2020 10:24:21. . Documentation recorded by the melonyibAnastasia james accurately reflects the services(s) I performed and decisions made by me. Authenticated by Dr. Finley on 06/12/2020 10:28:20. Problem List/Past Medical History Ongoing Arthritis Asthma Bladder infection Bladder outlet obstruction COPD mixed type Cystocele with prolapse Dysuria Flank pain Gross hematuria (more content not included)...[facility] Comment on above:Result Comment: Electronically Signed By: Tushar Nunez MD, Jude Farias\.br\Date and Time Signed: 06/12/2109:30 EDT\.br\Electronically Co-Signed By: Anastasia Cabral\.br\Date and Time Co-Signed: 06/12/20 10:24 EDTCoding Summary.on 91-43-8056Yxyvyy Summary.CODING DATE: 05/23/2020 FINAL [facility] DSC STATUS: Home (Routine DC) PAYOR: Medicare [...] By: Ryann Villegas Date Saved: 05/23/2020 09:34 [facility] HospitalConsenuniversity hospital 00-3[id number]#1.00CD:127[facility] Medical CenterConsent for Procedure/Surgeryon 28-16-3869Ciowacg for Procedure/[id number]#1.00CD:127Virgil Corea [facility]cy Medical Centersen for Treatmenton 09-95-7174Uiizcgo for S[id number]#1.00CD:127JenniferUC West Chester Hospitalsen for Treatment [id number]#1.00CD:JulianaRiverview Health InstituteDischarge Instructionson 77-31-5141Ivohwxqha Instructions [id number]#1.00CD:[address] [place], [place] [address]IntraOperative Documentson 48-79-8529BqorvMokhxdqrv Documents [id number]#1.00CD:127[facility] InstituteMain OR Intraoperative Recordon 37-97-5231Jckt OR Intraoperative Record IntraOp Document Type FTURO Summary Primary Physician: Jude Finley Jr., MD Finalized Date/Time: 05/18/20 14:11:35 Pt. Name: MARIAMA MAYNARD Srinath Cordero/Sex: 1945 Female Med Rec #: [id number] Physician: Jude Finley Jr., MD Financial #: [id number] Pt. Type: O Room/Bed: / Admit/Disch: 05/18/20 13:20:33 - Institution: Case Times FTURO Entry 1 Patient Times In Room 05/18/20 13:57:00 Out Room 05/18/20 14:08:00 Procedure Times Start 05/18/20 13:58:00 Stop 05/18/20 13:59:00 Anesthesia Times Last Modified By: Myah RN, CNOR, Luz Flowers 05/18/20 14:09:40 Case Attendance FTURO Entry 1 Entry 2 Entry 3 Case Attendee Jude Finley Jr., MD L Blank RN, ETHANOR, Luz Cormier CST, Vishal Yo Role Performed Surgeon - Primary Missile Inspector - Primary Scrub - Primary Time In 05/18/20 13:57:00 05/18/20 13:57:00 05/18/20 13:57:00 Time Out 05/18/20 14:03:00 05/18/20 14:03:00 05/18/20 14:03:00 Procedure CYSTOSCOPY LOCAL WITH CYSTOSCOPY LOCAL WITH CYSTOSCOPY LOCAL WITH URETHRAL DILATION(.) URETHRAL DILATION(.) URETHRAL DILATION(.) Comments Last Modified By: Myah MELGAR, ETHANOR, ETHAN Macias RNORLuz RN, Luz MARCELINO 05/18/20 14:01:23 05/18/20 14:01:23 05/18/20 14:01:23 Surgical [...] Glasgow RN, Lou Applicable) Casa Flowers CST, Kimberly A Time [...] Complete 05/18/20 14:00:00 Last Modified By: RYLAND lGasgow RN, Lou Ann 05/18/20 14:00:09 Case Comments Finalized By: RYLAND Glasgow RN, Lou Ann Document Signatures Signed By: RYLAND Glasgow RN, Lou Ann 05/18/20 14:01 RLYAND Glasgow RN, Lou Ann 05/18/20 14:02 RYLAND Glasgow RN, Lou Ann 05/18/20 14:11NoKettering Health TroyMain OR Preoperative Recordon 48-37-2471Bqso OR Preoperative RecordHolding Area Document Type FTURO Summary Primary Physician: Jude Finley Jr., MD Finalized Date/Time: 05/18/20 13:59:17 Pt. Name: MARIAMA MAYNARD D.O.B./Sex: 1945 Female Med Rec #: [id number] Physician: Jude Finley Jr., MD Financial #: [id number] Pt. Type: O Room/Bed: / Admit/Disch: 05/18/20 [...] 13:59:16 General Comments: Temp. 36 Finalized By: RYALND Glasgow RN, Lou Ann Document Signatures Signed By: Shabana Terrell LPN 05/18/20 13:42 RYLAND Glasgow RN, Lou Ann 05/18/20 13:59NoalOhiohealth Shelby HospitalOperative Reporton 51-49-2147Rtjqxdbny ReportPatient: MARIAMA MAYNARD Age: 74 years Sex: [...] urine. The Urethra was dilated to: 28 Monegasque w/ sounds. Devices Implanted: None. Removal: Cystoscope is removed, The patient tolerated it well. Postoperative Information Discharge: Patient is discharged home with antibiotic coverage, Follow up arranged.[facility] InstituteComment on above:Result Comment: Electronically Signed By: Tushar Nunez MD, Jude Farias\.br\Date and Time Signed: 05/18/2113:02 EDTAmbulatory Clinical Summaryon 87-33-1629Irdexnsddp Clinical Summary{72-g6-4z-31-ze-07-1e-a5-f1-25-7h-87-65-93-fe-5a}CD:174389PbyblyPitaobKettering Health TroyPatient Educationon 56-14-2761Hjvbtlq EducationUrinary Frequency The number of times a [...] your urinary frequency. Itis (more content not included)...NormalNovant Healther Mercy Medical CenterUrology Office/Clinic Noteon 75-77-0168Votlmuu Office/Clinic NoteChief Complaint decreased voiding This patient [...] Will order Local anesthesia. ABX sent to [facility] in [place]. 2. Retention of urine (R33.9: Retention of [...] procedure, # 2 cap(s), Refills(s) 0, Pharmacy: [facility]/pharmacy #[id number], 163, cm, 05/11/20 8:31:00 EDT, Height/Length Dosing, 64.2, kg, 05/11/20 8:31:00 EDT, W... Measure Post Void residual urine and/or bladder capacity by US- non-imaging 67145 Urnls Dip Stick Auto w/o Microscopy POC 37208 I have reviewed the previous health record information and history for this pt. from Dr. Finley. Follow-up With When Contact Inf (more content not included)...[facility] InstituteComment on above:Result Comment: Electronically Signed By: Tushar Nunez MD, Jude Farias\.br\Date and Time Signed: 05/11/2109:45 EDT\.br\Electronically Co- Signed By: Kisha Stevens MA\.br\Date and Time Co-Signed: 05/11/20 08:53 EDT Ambulatory Clinical Summaryon 00-23-1971Cffgczuekz Clinical Summary {2h-p2-96-83-7u-px-64-4d-wx-i8-c0-s6-e5-33-f1-71}CD:234215OeccgqZirtntKettering Health TroyPatient Educationon 77-06-6452Xnpunyg EducationObstetrics and Gynecology Acute Urinary Retention, Female [...] lead to aurinary tract infection. Only take xauk-uhr-oewxwyt or prescription medicines for pain, discomfort, or fever as directed by your caregiver. SEEK IMMEDIATE MEDICAL CARE IF: You develop chills, fever, or show signs of generalized illness that occurs prior to seeing your caregiver. Document Released: 02/09/2007 Document Revised: 05/04/2012 Document Reviewed: 01/12/2010 ExitCare? Patient Information ?2013 [employer].[facility] InstituteUrology Office/Clinic Noteon 54-88-5294Menvauw Office/Clinic NoteChief Complaint f/u to cysto UD [...] Urnls Dip Stick Auto w/o Microscopy POC 86893 3. Dysuria (R30.0: Dysuria) Mild burning w/ urination. I have reviewed the previous health record information and history for this pt. from Dr. Finley. Follow-up With When Contact Information Tushar Nunez MD, Jude Farias [address] [place], [place] [address]- Additional Instructions: 1mos. w/ pVR Patient Education [...] furosemide 20 mg T (more content not included)...[facility] InstituteComment on above:Result Comment: Electronically Signed By: Tushar Nunez MD, Jude Farias\.br\Date and Time Signed: 01/04/2012:26 EST\.br\Electronically Co- Signed By: Kisha Stevens MA\.br\Date and Time Co-Signed: 01/04/20 12:01 EST Operative Reporton 63-37-8210Vnaxuqwnr Report [id number]#1.00CD:127[facility] Health InstituteCult,Bloodon 95-27-3017Iesf,BloodSpecimen Description .BLOOD Special Requests 3ML LT A.C. Culture NO GROWTH 6 DAYS Report Status FINAL 10/18/2019[facility] CenterComment on above:Performed By: #### CDP, CP, LIP, TROPI, LIPRF, GLYHGB #### [employer] [address] [place] [address] Human Resources Benefits Specialist: Carlo Mcmanus,BloodSpecimen Description .BLOOD Special Requests back lt arm 3ml Culture NO GROWTH 6 DAYS Report Status FINAL 10/18/2019[facility] Health CenterComment on above:Performed By: #### CDP, CP, LIP, TROPI, LIPRF, GLYHGB #### [employer] [address] [place], [place] [address] Human Resources Benefits Specialist: Carlo Mcmanus,Urineon 83-18-0220Ogfq,UrineSpecimen Description .CLEAN CATCH URINE Special Requests NOT REPORTED Culture STAPHYLOCOCCUS SPECIES, COAGULASE NEGATIVE >950115 CFU/ML Report Status FINAL 10/17/2019 SUSCEPTIBILITY Organism [...] NOT REPORTED Trimethoprim/Sulfa 20 SUSCEPTIBLE Vancomycin 1 SUSCEPTIBLENormalToledo HospitalComment on above: Performed By: #### KRIS, CP, LIP, TROPI, LIPRF, GLYHGB #### [employer] [address] [place] [address] Human Resources Benefits Specialist: Josh Mcmanus Metab w/rfx MGon 10-16-2019(cont.)Normal Toledo HospitalComment on above:Result Comment: Average GFR for 70 or more years old: 75 mL/min/1.73sq m Chronic Kidney Disease: <60 mL/min/1.73sq m Kidney failure: <15 mL/min/1.73sq m eGFR calculated using average adult body mass. Additional eGFR calculator available at: http://www.Orderlord.Corpora/multiple_crcl_2012.htmPerformed By: #### CDP, CP, LIP, TROPI, LIPRF, GLYHGB #### [employer] [address] [place], [place] [address] Human Resources Benefits Specialist: James Mcmanus gap [Moles/Vol]13 mmol/LNormal9-17Toledo HospitalComment on above:Performed By: #### CDP, CP, LIP, TROPI, LIPRF, GLYHGB #### [facility] [address] [place] [address] Human Resources Benefits Specialist: NEHAL Mcmanusalcium [Mass/Vol]8.6 mg/dLNormal8.6-10.4Toledo HospitalComment on above:Performed By: #### CDP, CP, LIP, TROPI, LIPRF, GLYHGB #### [facility] [address] [place] [address] Human Resources Benefits Specialist: Brandon Anaya MDChloride [Moles/Vol]97 mmol/SDdu95-588PegkfToledo HospitalComment on above:Performed By: #### CDP, CP, LIP, TROPI, LIPRF, GLYHGB #### [address] [address] Human Resources Benefits Specialist: Brandon Anaya MDCO2 [Moles/Vol]25 mmol/GAwrsoo90-55NmmdaToledo HospitalComment on above:Performed By: #### CDP, CP, LIP, TROPI, LIPRF, GLYHGB #### [facility] [address] [place] [address] Human Resources Benefits Specialist: Brandon Anaya MDCreatinine [Mass/Vol]0.42 mg/dLLow0.50-0.90Toledo HospitalComment on above:Performed By: #### CDP, CP, LIP, TROPI, LIPRF, GLYHGB #### [facility] [address] [place] [address] Human Resources Benefits Specialist: Brandon Anaya MDGFR, Amer>60Normal>60Toledo HospitalComment on above:Performed By: #### CDP, CP, LIP, TROPI, LIPRF, GLYHGB #### [facility] [address] [place] [address] Human Resources Benefits Specialist: CAROLYN Mcmanus,non Amer>60Normal>60Toledo HospitalComment on above:Performed By: #### CDP, CP, LIP, TROPI, LIPRF, GLYHGB #### [facility] [address] [place] [address] Human Resources Benefits Specialist: Brandon Anaya MDGlucose [Mass/Vol]87 mg/fYKaswas39-48TqswtUCSF Benioff Children's Hospital OaklandComment on above:Performed By: #### CDP, CP, LIP, TROPI, LIPRF, GLYHGB #### [facility] [address] [place] [address] Human Resources Benefits Specialist: BLADIMIR Mcmanusotassium [Moles/Vol]3.7 mmol/LNormal3.7-5.3 [facility] HospitalComment on above:Performed By: #### CDP, CP, LIP, TROPI, LIPRF, GLYHGB #### [facility] [address] [place] [address] Human Resources Benefits Specialist: FABIANA Mcmanusodium [Moles/Vol]135 mmol/GDyelth252-880WskipToledo HospitalComment on above:Performed By: #### CDP, CP, LIP, TROPI, LIPRF, GLYHGB #### [facility] [address] [place] [address] Human Resources Benefits Specialist: Brandon Anaya MDUrea nitrogen [Mass/Vol]14 mg/dLNormal8-23Toledo HospitalComment on above:Performed By: #### CDP, CP, LIP, TROPI, LIPRF, GLYHGB #### [facility] [address] [place] [address] Human Resources Benefits Specialist: RADHA Mcmanus/CRE RatioNOT REPORTEDNormal9-20Toledo HospitalComment on above:Performed By: #### CDP, CP, LIP, TROPI, LIPRF, GLYHGB #### [facility] [address] [place] [address] Human Resources Benefits Specialist: FABIANA Mcmanustaging:NOT REPORTEDNormalToledo HospitalComment on above:Performed By: #### CDP, CP, LIP, TROPI, LIPRF, GLYHGB #### [employer] [address] [place] [address] Human Resources Benefits Specialist: Josh Mcmanus Metabolic Panel w/ Reflex to MGon [id number] gap [Moles/Vol]13 mmol/L9 - 17 mmol/LMKettering Health Main Campus, KYBun/Cre RatioNOT REPORTEDNewark Hospital, KYCalcium [Mass/Vol]8.6 mg/dL8.6 - 10.4 mg/dLNewark Hospital, KYChloride [Moles/Vol]97 mmol/LLow98 - 107 mmol/[facility], KYCO2 [Moles/Vol]25 mmol/L20 - 31 mmol/LMBlanchard [facility] [place], [place] Creatinine [Mass/Vol]0.42 mg/dLLow0.5 - 0.9 mg/dLNewark Hospital, KYGFR >60>60 mL/minNewark Hospital, KYGFR Non->60>60 mL/min [facility], KYGFR/1.73 sq M predicted among non-blacks MDRD (S/P/Bld) [Vol rate/Area][facility], KYComment on above:Average GFR for 70 or more years old: 75 mL/min/1.73sq m Chronic Kidney Disease: <60 mL/min/1.73sq m Kidney failure: <15 mL/min/1.73sq m eGFR calculated using average adult body mass. Additional eGFR calculator available at: http://www.Orderlord.Corpora/multiple_crcl_2012.htm GFR/1.73 sq M predicted among non-blacks MDRD (S/P/Bld) [Vol rate/Area]NOT REPORTEDNewark Hospital, KYGlucose [Mass/Vol]87 mg/dL70 - 99 mg/dLNewark Hospital, KYInterpretation and review of laboratory resultsAbnormalNewark Hospital, KYPotassium [Moles/Vol]3.7 mmol/L3.7 - 5.3 mmol/LMBlanchard [facility]- [place], KYSodium [Moles/Vol]135 mmol/L135 - 144 mmol/LMBlanchard Valley Health [facility]- [place], KYUrea nitrogen [Mass/Vol]14 mg/dL8 - 23 mg/dLPomerene Hospital- [place], KYCBC auto differentialon [id number] (Bld) [#/Vol]0.04 10*3/[facility]- [place], KYBasophils/100 WBC (Bld)0 %0 - 2 %[facility], KYDifferential TypeNOT REPORTEDPomerene Hospital- [place], KYEosinophils (Bld) [#/Vol]0.10 10*3/[facility]- [place], [place] Eosinophils/100 WBC (Bld)1 %1 - 4 %[facility]- [place], KYErythrocyte distribution width (RBC) [Ratio]14.6 %High11.8 - 14.4 %[facility]- [place], KYHematocrit (Bld) [Volume fraction]40.2 %36.3 - 47.1 %[facility] [place], KYHemoglobin (Bld) [Mass/Vol]12.6 g/dL11.9 - 15.1 g/dLAkron Children'S Hospital [place], KYImmature granulocytes (Bld) [#/Vol]0.08 10*3/[facility]- [place], KYImmature granulocytes (Bld) [#/Vol] 1 %Mflw1RrmpdNewark Hospital, KYInterpretation and review of laboratory results AbnormalAkron Children'S Hospital [place], KYLymphocytes (Bld) [#/Vol]3.05 10*3/[facility]- [place], KYLymphocytes/100 WBC (Bld)32 %24 - 43 %[facility]- [place], KYMCH (RBC) [Entitic mass]29.0 pg25.2 - 33.5 pgPomerene Hospital- [place], KYMCHC (RBC) [Mass/Vol]31.3 g/dL28.4 - 34.8 g/dLPomerene Hospital- [place], KYMCV (RBC) [Entitic vol]92.4 fL82.6 - 102.9 fLAkron Children'S Hospital [place], KYMonocytes (Bld) [#/Vol]0.76 10*3/uLNewark Hospital, KYMonocytes/100 WBC (Bld)8 %3 - 12 %[facility], CLARAPlatelet mean volume (Bld) [Entitic vol]10.6 fL8.1 - 13.5 fLNewark Hospital, KYPlatelets (Bld) [#/Vol]216 10*3/uLNewark Hospital, CLARAPlatelets (Bld) [#/Vol]NOT REPORTEDNewark Hospital, WYRBC (Bld) [#/Vol]4.35 10*6/uL3.95 - 5.11 m/uLNewark Hospital, [place] RBC morphology finding Nom (Bld)ANISOCYTOSIS PRESENTNewark Hospital, [place] Segmented neutrophils/100 WBC (Bld)58 %36 - 65 %[facility], CLARASegs Absolute5.61[facility], WYWBC (Bld) [#/Vol]9.6 10*3/uLNewark Hospital, CLARA WBC (Bld) [#/Vol]0.0 10*3/uL0.0 per 100 WBCNewark Hospital, WYWBC MorphologyNOT REPORTEDNewark Hospital, WYCBC with Diffon [id number]. Basophil0.04 k/uL Normal0.00-0.20Toledo HospitalComment on above:Performed By: #### CDP, CP, LIP, TROPI, LIPRF, GLYHGB #### [facility] [address] [place] [address] Human Resources Benefits Specialist: Marie Mcmanus.Imm.Granulocyte0.08 k/uLNormal0.00-0.30Toledo HospitalComment on above:Performed By: #### CDP, CP, LIP, TROPI, LIPRF, GLYHGB #### [facility] [address] [place] [address] Human Resources Benefits Specialist: Marie Mcmanus.Neutrophil (Seg)5.61 k/uLNormal1.50-8.10 Toledo HospitalComment on above:Performed By: #### CDP, CP, LIP, TROPI, LIPRF, GLYHGB #### [place] [address] Human Resources Benefits Specialist: Brandon Anaya MDBasophils/100 WBC (Bld)0 %Normal0-2[facility] OaklandComment on above:Performed By: #### CDP, CP, LIP, TROPI, LIPRF, GLYHGB #### [facility] [address] [place] [address] Human Resources Benefits Specialist: Brandon Anaya MDEosinophils (Bld) [#/Vol]0.10 10*3/uLNormal 0.00-0.44Toledo HospitalComment on above:Performed By: #### CDP, CP, LIP, TROPI, LIPRF, GLYHGB #### [place] [address] Human Resources Benefits Specialist: MAU Mcmanusosinophils/100 WBC (Bld)1 %Normal1-4Toledo HospitalComment on above:Performed By: #### CDP, CP, LIP, TROPI, LIPRF, GLYHGB #### [place] [address] Human Resources Benefits Specialist: Brandon Anaya MDErythrocyte distribution width (RBC) [Ratio]14.6 %High11.8-14.4Toledo HospitalComment on above:Performed By: #### CDP, CP, LIP, TROPI, LIPRF, GLYHGB #### [place] [address] Human Resources Benefits Specialist: Brandon Anaya MDHematocrit (Bld) [Volume fraction]40.2 %Normal 36.3-47.1MU[facility] Hospital OaklandComment on above:Performed By: #### CDP, CP, LIP, TROPI, LIPRF, GLYHGB #### [address] [address] Human Resources Benefits Specialist: Brandon Anaya MDHemoglobin (Bld) [Mass/Vol]12.6 g/dLNormal 11.9-15.1MUCSF [facility] Hospital OaklandComment on above:Performed By: #### CDP, CP, LIP, TROPI, LIPRF, GLYHGB #### [address] [address] Human Resources Benefits Specialist: Brandon Anaya MDImmature granulocytes (Bld) [#/Vol]1 %Dzbe0YluzmToledo HospitalComment on above:Performed By: #### CDP, CP, LIP, TROPI, LIPRF, GLYHGB #### [address] [address] Human Resources Benefits Specialist: Brandon Anaya MDLymphocytes (Bld) [#/Vol]3.05 10*3/uLNormal 1.10-3.70Toledo HospitalComment on above:Performed By: #### CDP, CP, LIP, TROPI, LIPRF, GLYHGB #### [address] [address] Human Resources Benefits Specialist: Kortney Mcmanusmphocytes/100 WBC (Bld)32 %Rsgnsx37-78NfihrToledo HospitalComment on above:Performed By: #### CDP, CP, LIP, TROPI, LIPRF, GLYHGB #### [address] [address] Human Resources Benefits Specialist: LIZZY McmanusCH (RBC) [Entitic mass]29.0 tbMakbju26.2-33.5 Toledo HospitalComment on above:Performed By: #### CDP, CP, LIP, TROPI, LIPRF, GLYHGB #### [address] [address] Human Resources Benefits Specialist: Brandon Madoff, MDMCHC (RBC) [Mass/Vol]31.3 g/iNGoomfz32.4-34.8 [facility]edo HospitalComment on above:Performed By: #### CDP, CP, LIP, TROPI, LIPRF, GLYHGB #### [address] [address] Human Resources Benefits Specialist: LIZZY McmanusCV (RBC) [Entitic vol]92.4 mGAfdspw53.6-102.9 [facility]edo HospitalComment on above:Performed By: #### CDP, CP, LIP, TROPI, LIPRF, GLYHGB #### [place] [address] Human Resources Benefits Specialist: LIZZY Mcmanusonocytes (Bld) [#/Vol]0.76 10*3/uLNormal 0.10-1.20T[place]edo HospitalComment on above:Performed By: #### CDP, CP, LIP, TROPI, LIPRF, GLYHGB #### [place] [address] Human Resources Benefits Specialist: LIZZY Mcmanusonocytes/100 WBC (Bld)8 %Normal3-12Toledo HospitalComment on above:Performed By: #### CDP, CP, LIP, TROPI, LIPRF, GLYHGB #### [place] [address] Human Resources Benefits Specialist: Brandon Anaya MDNeutrophil (Seg)58 %Bxpbfr34-42KxwqdToledo HospitalComment on above:Performed By: #### CDP, CP, LIP, TROPI, LIPRF, GLYHGB #### [address] [address] Human Resources Benefits Specialist: Brandon Anaya MDNRBC Automated0.0 per 100 WBCNormal0.0Toledo HospitalComment on above:Performed By: #### CDP, CP, LIP, TROPI, LIPRF, GLYHGB #### [address] [address] Human Resources Benefits Specialist: Nadeem Mcmanus mean volume (Bld) [Entitic vol]10.6 fL Normal8.1-13.5Toledo HospitalComment on above:Performed By: #### CDP, CP, LIP, TROPI, LIPRF, GLYHGB #### [address] [address] Human Resources Benefits Specialist: Geremias Mcmanustemariluz (Bld) [#/Vol]216 10*3/jNPioxqk870-112 [facility] HospitalComment on above:Performed By: #### CDP, CP, LIP, TROPI, LIPRF, GLYHGB #### [address] [address] Human Resources Benefits Specialist: RICHA Mcmanus (Bld) [#/Vol]4.35 10*6/uLNormal3.95-5.11 [facility] HospitalComment on above:Performed By: #### CDP, CP, LIP, TROPI, LIPRF, GLYHGB #### [address] [address] Human Resources Benefits Specialist: RICHA Mcmanus morphology finding Nom (Bld)ANISOCYTOSIS PRESENTNormalToledo HospitalComment on above:Performed By: #### CDP, CP, LIP, TROPI, LIPRF, GLYHGB #### [address] [address] Human Resources Benefits Specialist: LUCIAN Mcmanus (Bld) [#/Vol]9.6 10*3/uLNormal3.5-11.3MU[facility] Hospital OaklandComment on above:Performed By: #### CDP, CP, LIP, TROPI, LIPRF, GLYHGB #### [address] [place] [address] Human Resources Benefits Specialist: Gustabo Mcmanus PerformedNOT REPORTEDSamaritan North Health CenterComment on above:Performed By: #### CDP, CP, LIP, TROPI, LIPRF, GLYHGB #### [facility] [address] [place] [address] Human Resources Benefits Specialist: Bon Mcmanus (Chadwickd) [#/Vol]NOT REPORTEDNoFairfield Medical CenterComment on above:Performed By: #### CDP, CP, LIP, TROPI, LIPRF, GLYHGB #### [facility] [address] [place] [address] Human Resources Benefits Specialist: LUCIAN Mcmanus MorphologyNOT REPORTEDSamaritan North Health CenterComment on above:Performed By: #### CDP, CP, LIP, TROPI, LIPRF, GLYHGB #### [facility] [address] [place] [address] Human Resources Benefits Specialist: WENDY Mcmanus LUMBAR SPINE W WO CONTRASTon [id number] LUMBAR SPINE W WO CONTRASTEXAMINATION: MRI OF [...] Signed by: Ryan Lindsay MD 10/15/19 Final resultNormLima Memorial HospitalPO Glucose Fingerstickon [id number] [Mass/Vol]98 mg/dL65 - 105 mg/dLNewark Hospital, KYGlucose [Mass/Vol]107 mg/xUAzfa87 - 105 mg/dLNewark Hospital, KYInterpretation and review of laboratory resultsAbnormalNewark Hospital, KYGlucose [Mass/Vol]81 mg/dL65 - 105 mg/dLNewark Hospital, KYURINALYSIS WITH MICROSCOPICon 10-16-2019 Amorphous, UANOT REPORTEDNoneMeCleveland Clinic [facility], KYBacteria, UAMODERATEAbnormal NoneNewark Hospital, KYBilirubin UrineNegativeNEGATIVEMercy Health- [place], KYCasts UA0 TO 2 HYALINE Reference range defined for non-centrifuged specimen.[facility]- [place], KYColor, UAYELLOWYELLOWMercy Health- [place], KYCrystals, UANOT REPORTED None /HPFMercy Health- [place], KYEpithelial Cells UA0 TO 2[facility]- [place], [place] Glucose, UrNegativeNEGATIVEMercy Health- [place], KYInterpretation and review of laboratory resultsAbnormalMercy Health- [place], KYKetones Ql (U)SMALLAbnormal NEGATIVEMercy Health- [place], KYLeukocyte esterase Test strip Ql (U)NegativeNEGATIVE [facility]- [place], KYMucus, UANOT REPORTEDNoneMercy Health- [place], KYNitrite, Urine NegativeNEGATIVEMercy Health- [place], KYOther Observations UANOT REPORTEDNOT REQ. [facility]- [place], KYpH, UA8.0[facility]- [place], KYProtein (U) [Mass/Vol]Negative NEGATIVEMercy Health- [place], KYRBC (U) [#/Vol]2 TO 5[facility]- [place], KYComment on above:Reference range defined for non-centrifuged specimen.Renal Epithelial, UA NOT REPORTED0 /HPFMercy Health- [place], KYSpecific [place], UA1.006[facility]- [place], KYTrichomonas, UANOT REPORTEDNoneMercy Health- [place], KYTurbidity UACLOUDYAbnormal CLEARMercy Health- [place], KYUrine HgbNegativeNEGATIVEMercy Health- [place], [place] Urobilinogen, UrineNormalNormalMercy Health- [place], KYWBC, UA0 TO 2[facility]- [place], KYYeast, UANOT REPORTEDNoneMercy Health- [place], [place]-[facility]- [place], [place] Urinalysis w/ Microon 10-16-2019-----NormalToledo Hospital Comment on above:Performed By: #### CDP, CP, LIP, TROPI, LIPRF, GLYHGB #### [employer] [address] [place] [address] Human Resources Benefits Specialist: Brandon Anaya, MDAcetoacetic Acid,UrSMALLAbnormalNEGToledo HospitalComment on above:Performed By: #### CDP, CP, LIP, TROPI, LIPRF, GLYHGB #### [facility] [address] [place] [address] Human Resources Benefits Specialist: Brandon Anaya MDBacteria LM.HPF (Urine sed) [#/Area]MODERATE AbnormalNONEMercy Sonoma Valley HospitalComment on above:Performed By: #### CDP, CP, LIP, TROPI, LIPRF, GLYHGB #### [facility] [address] [place] [address] Human Resources Benefits Specialist: Brandon Anaya MDBilirubin, SemiQt,UrNegativeNormalNEGMercy Sonoma Valley HospitalComment on above:Performed By: #### CDP, CP, LIP, TROPI, LIPRF, GLYHGB #### [address] [address] Human Resources Benefits Specialist: NEHAL Mcmanusasts LM.LPF (Urine sed) [#/Area]0 TO 2 HYALINE Normal0-8MerGlendale Memorial Hospital and Health CenterComment on above:Result Comment: Reference range defined for non-centrifuged specimen.Performed By: #### CDP, CP, LIP, TROPI, LIPRF, GLYHGB #### [facility] [address] [place] [address] Human Resources Benefits Specialist: NEHAL Mcmanusolor (U)YELLOWNormalYELMercy Sonoma Valley HospitalComment on above:Performed By: #### CDP, CP, LIP, TROPI, LIPRF, GLYHGB #### [facility] [address] [place] [address] Human Resources Benefits Specialist: Brandon Anaya MDEpithelial cells LM.HPF (Urine sed) [#/Area]0 TO 7Qcedrt7-4Abiyv [facility] HospitalComment on above:Performed By: #### CDP, CP, LIP, TROPI, LIPRF, GLYHGB #### [facility] [address] [place] [address] Human Resources Benefits Specialist: Brandon Anaya MDGlucose Ql (U)NegativeNormalNEGToledo HospitalComment on above:Performed By: #### CDP, CP, LIP, TROPI, LIPRF, GLYHGB #### [facility] [address] [place] [address] Human Resources Benefits Specialist: Brandon Anaya MDHemoglobin, UrNegativeNormalNEGToledo HospitalComment on above:Performed By: #### CDP, CP, LIP, TROPI, LIPRF, GLYHGB #### [facility] [address] [place] [address] Human Resources Benefits Specialist: Brandon Anaya MDLeukocyte esterase Test strip Ql (U)Negative NormalNEGToledo HospitalComment on above:Performed By: #### CDP, CP, LIP, TROPI, LIPRF, GLYHGB #### [facility] [address] [place] [address] Human Resources Benefits Specialist: Brandon Anaya MDNitrite,UrNegativeNormalNEGToledo HospitalComment on above:Performed By: #### CDP, CP, LIP, TROPI, LIPRF, GLYHGB #### [facility] [address] [place] [address] Human Resources Benefits Specialist: Brandon Anaya [facility] (U)8.0 [pH]Normal5.0-8.0MerGlendale Memorial Hospital and Health CenterComment on above:Performed By: #### CDP, CP, LIP, TROPI, LIPRF, GLYHGB #### [facility] [address] [place] [address] Human Resources Benefits Specialist: BLADIMIR Mcmanusrotein Ql (U)NegativeNormalNEGToledo HospitalComment on above:Performed By: #### CDP, CP, LIP, TROPI, LIPRF, GLYHGB #### [facility] [address] [place] [address] Human Resources Benefits Specialist: Brandon Madoff, MDRBC (U) [#/Vol]2 TO 0Ctekhl3-4DbnsuToledo HospitalComment on above:Result Comment: Reference range defined for non- centrifuged specimen.Performed By: #### CDP, CP, LIP, TROPI, LIPRF, GLYHGB #### [facility] [address] [place] [address] Human Resources Benefits Specialist: FABIANA Mcmanuspecific gravity (U) [Rel density]1.006Normal 1.005-1.030Toledo HospitalComment on above:Performed By: #### CDP, CP, LIP, TROPI, LIPRF, GLYHGB #### [facility] [address] [place] [address] Human Resources Benefits Specialist: GODWIN McmanusurbidityCLOUDYAbsaint mary's hospital of blue springsalCCleveland Clinic Fairview HospitalComment on above:Performed By: #### CDP, CP, LIP, TROPI, LIPRF, GLYHGB #### [facility] [address] [place] [address] Human Resources Benefits Specialist: Jackie Mcmanus,UrNormalNoalTuscarawas HospitalComment on above:Performed By: #### CDP, CP, LIP, TROPI, LIPRF, GLYHGB #### [facility] [address] [place] [address] Human Resources Benefits Specialist: Brandon Anaya MDWBC (U) [#/Vol]0 TO 2Evxwmh3-6YreyqToledo HospitalComment on above:Performed By: #### CDP, CP, LIP, TROPI, LIPRF, GLYHGB #### [employer] [facility] [address] [place] [address] Human Resources Benefits Specialist: Iwona Mcmanus sediment LM Ql (Urine sed)NOT REPORTED NormalNONEMercRidgecrest Regional HospitalComment on above:Performed By: #### CDP, CP, LIP, TROPI, LIPRF, GLYHGB #### [facility] [address] [place] [address] Human Resources Benefits Specialist: Andrew Mcmanus LM Nom (Urine sed)NOT REPORTEDNormal NONEToledo HospitalComment on above:Performed By: #### CDP, CP, LIP, TROPI, LIPRF, GLYHGB #### [facility] [address] [place] [address] Human Resources Benefits Specialist: Brandon Anaya MDEpithelial, RenalNOT CFOKHOCVHhznad6NvfcoToledo HospitalComment on above:Performed By: #### CDP, CP, LIP, TROPI, LIPRF, GLYHGB #### [facility] [address] [place] [address] Human Resources Benefits Specialist: Raquel Mcmanusus StrandsNOT REPORTEDNormalNONEMeLos Alamitos Medical CenterComment on above:Performed By: #### CDP, CP, LIP, TROPI, LIPRF, GLYHGB #### [facility] [address] [place] [address] Human Resources Benefits Specialist: Brandon Anaya MDOther ObservationsNOT REPORTEDNormalNREQToledo HospitalComment on above:Performed By: #### CDP, CP, LIP, TROPI, LIPRF, GLYHGB #### [facility] [address] [place] [address] Human Resources Benefits Specialist: Brandon Anaya MDTrichomonasNOT REPORTEDNormalNONEMeLos Alamitos Medical CenterComment on above:Performed By: #### CDP, CP, LIP, TROPI, LIPRF, GLYHGB #### [facility] [address] [place] [address] Human Resources Benefits Specialist: Donna Mcmanus LM Ql (Urine sed)NOT REPORTEDNormalNONE [facility] HospitalComment on above:Performed By: #### CDP, CP, LIP, TROPI, LIPRF, GLYHGB #### [facility] [address] [place] [address] Human Resources Benefits Specialist: Josh Mcmanus Metab w/rfx MGon 10-15-2019(cont.)Normal [facility] HospitalComment on above:Result Comment: Average GFR for 70 or more years old: 75 mL/min/1.73sq m Chronic Kidney Disease: <60 mL/min/1.73sq m Kidney failure: <15 mL/min/1.73sq m eGFR calculated using average adult body mass. Additional eGFR calculator available at: http://www.Orderlord.Corpora/multiple_crcl_2012.htmPerformed By: #### CDP, CP, LIP, TROPI, LIPRF, GLYHGB #### [address] [address] Human Resources Benefits Specialist: Brandon Anaya MDAnion gap [Moles/Vol]14 mmol/LNormal9-17T[facility]edo HospitalComment on above:Performed By: #### CDP, CP, LIP, TROPI, LIPRF, GLYHGB #### [address] [address] Human Resources Benefits Specialist: Brandon Anaya MDCalcium [Mass/Vol]8.8 mg/dLNormal8.6-10.4T[facility]edo HospitalComment on above:Performed By: #### CDP, CP, LIP, TROPI, LIPRF, GLYHGB #### [address] [address] Human Resources Benefits Specialist: Brandon Anaya MDChloride [Moles/Vol]94 mmol/LSbd12-852RhbkvToledo HospitalComment on above:Performed By: #### CDP, CP, LIP, TROPI, LIPRF, GLYHGB #### [facility] [address] [place] [address] Human Resources Benefits Specialist: Brandon Anaya MDCO2 [Moles/Vol]23 mmol/OCxqrih84-19SldsnToledo HospitalComment on above:Performed By: #### CDP, CP, LIP, TROPI, LIPRF, GLYHGB #### [address] [address] Human Resources Benefits Specialist: NEHAL Mcmanusreatinine [Mass/Vol]0.36 mg/dLLow0.50-0.90T[facility]edo HospitalComment on above:Performed By: #### CDP, CP, LIP, TROPI, LIPRF, GLYHGB #### [address] [address] Human Resources Benefits Specialist: CAROLYN Mcmanus, Amer>60Normal>60T[facility]edo HospitalComment on above:Performed By: #### CDP, CP, LIP, TROPI, LIPRF, GLYHGB #### [address] [address] Human Resources Benefits Specialist: CAROLYN Mcmanus,non Amer>60Normal>60T[facility]edo HospitalComment on above:Performed By: #### CDP, CP, LIP, TROPI, LIPRF, GLYHGB #### [address] [address] Human Resources Benefits Specialist: Brandon Anaya MDGlucose [Mass/Vol]89 mg/wDMvmwke66-99SoqyyUCSF Benioff Children's Hospital OaklandComment on above:Performed By: #### CDP, CP, LIP, TROPI, LIPRF, GLYHGB #### [address] [address] Human Resources Benefits Specialist: BLADIMIR Mcmanusotassium [Moles/Vol]3.7 mmol/LNormal3.7-5.3 [facility] HospitalComment on above:Performed By: #### CDP, CP, LIP, TROPI, LIPRF, GLYHGB #### [address] [address] Human Resources Benefits Specialist: FABIANA Mcmanusodium [Moles/Vol]131 mmol/OWer653-540VfglwToledo HospitalComment on above:Performed By: #### CDP, CP, LIP, TROPI, LIPRF, GLYHGB #### [facility] [address] [place], [place] [address] Human Resources Benefits Specialist: Brandon Anaya MDUrea nitrogen [Mass/Vol]16 mg/dLNormal8-23T[facility] HospitalComment on above:Performed By: #### CDP, CP, LIP, TROPI, LIPRF, GLYHGB #### [facility] [address] [place], [place] [id number] Human Resources Benefits Specialist: BAUDILIO McmanusN/CRE RatioNOT REPORTEDNormal9-20T[facility] HospitalComment on above:Performed By: #### CDP, CP, LIP, TROPI, LIPRF, GLYHGB #### [facility] [address] [place] [address] Human Resources Benefits Specialist: FABIANA Mcmanustaging:NOT REPORTEDNormalToledo HospitalComment on above:Performed By: #### CDP, CP, LIP, TROPI, LIPRF, GLYHGB #### [facility] [address] [place] [address] Human Resources Benefits Specialist: Josh Mcmanus Metabolic Panel w/ Reflex to MGon [id number] gap [Moles/Vol]14 mmol/L9 - 17 mmol/LMercy Health- [place], KYBun/Cre RatioNOT REPORTEDBarnesville Hospital Health- [place], KYCalcium [Mass/Vol]8.8 mg/dL8.6 - 10.4 mg/dLBarnesville Hospital Health- [place], KYChloride [Moles/Vol]94 mmol/LLow98 - 107 mmol/LMercy Health- [place], KYCO2 [Moles/Vol]23 mmol/L20 - 31 mmol/LMercy Health- [place], [place] Creatinine [Mass/Vol]0.36 mg/dLLow0.5 - 0.9 mg/dLNewark Hospital, KYGFR >60>60 mL/minAkron Children'S Hospital [place], KYGFR Non->60>60 mL/min [facility], KYGFR/1.73 sq M predicted among non-blacks MDRD (S/P/Bld) [Vol rate/Area][facility], KYComment on above:Average GFR for 70 or more years old: 75 mL/min/1.73sq m Chronic Kidney Disease: <60 mL/min/1.73sq m Kidney failure: <15 mL/min/1.73sq m eGFR calculated using average adult body mass. Additional eGFR calculator available at: http://www.Clutter/Gochikuru_crcl_2011.htm GFR/1.73 sq M predicted among non-blacks MDRD (S/P/Bld) [Vol rate/Area]NOT REPORTEDNewark Hospital, KYGlucose [Mass/Vol]89 mg/dL70 - 99 mg/dLNewark Hospital, KYInterpretation and review of laboratory resultsAbnormalNewark Hospital, KYPotassium [Moles/Vol]3.7 mmol/L3.7 - 5.3 mmol/LMBlanchard Valley [facility] [place], KYSodium [Moles/Vol]131 mmol/AIcl339 - 144 mmol/LMBlanchard Valley Health [facility] [place], KYUrea nitrogen [Mass/Vol]16 mg/dL8 - 23 mg/dLNewark Hospital, KYCBC auto differentialon [id number] (Bld) [#/Vol]0.06 10*3/uLAkron Children'S Hospital [place], KYBasophils/100 WBC (Bld)1 %0 - 2 %[facility], KYDifferential TypeNOT REPORTEDNewark Hospital, KYEosinophils (Bld) [#/Vol]0.13 10*3/uLAkron Children'S Hospital [place], [place] Eosinophils/100 WBC (Bld)1 %1 - 4 %[facility], KYErythrocyte distribution width (RBC) [Ratio]14.6 %High11.8 - 14.4 %[facility], KYHematocrit (Bld) [Volume fraction]41.6 %36.3 - 47.1 %[facility], CLARAHemoglobin (Bld) [Mass/Vol]13.4 g/dL11.9 - 15.1 g/dLAkron Children'S Hospital [place], CLARAImmature granulocytes (Bld) [#/Vol]1 %Ummo1EuaedAkron Children'S Hospital [place], CLARAImmature granulocytes (Bld) [#/Vol]0.11 10*3/[facility], CLARAInterpretation and review of laboratory results AbnormalNewark Hospital, CLARALymphocytes (Bld) [#/Vol]2.56 10*3/[facility]- [place], CLARALymphocytes/100 WBC (Bld)24 %24 - 43 %[facility], CLARAMCH (RBC) [Entitic mass]29.3 pg25.2 - 33.5 pgNewark Hospital, CLARAMCHC (RBC) [Mass/Vol]32.2 g/dL28.4 - 34.8 g/dLNewark Hospital, CLARAMCV (RBC) [Entitic vol]90.8 fL82.6 - 102.9 fLNewark Hospital, CLARAMonocytes (Bld) [#/Vol]0.78 10*3/[facility], CLARAMonocytes/100 WBC (Bld)7 %3 - 12 %[facility], CLARAPlatelet mean volume (Bld) [Entitic vol]10.6 fL8.1 - 13.5 fLNewark Hospital, CLARAPlatelets (Bld) [#/Vol]NOT REPORTEDNewark Hospital, CLARAPlatelets (Bld) [#/Vol]241 10*3/[facility], CLARARBC (Bld) [#/Vol]4.58 10*6/uL3.95 - 5.11 m/[facility], CLARA RBC morphology finding Nom (Bld)ANISOCYTOSIS PRESENTNewark Hospital, [place] Segmented neutrophils/100 WBC (Bld)66 %High36 - 65 %[facility], CLARASegs Absolute7.00[facility], CLARAWBC (Bld) [#/Vol]10.6 10*3/uLGrand Lake Joint [facility] (Bld) [#/Vol]0.0 10*3/uL0.0 per 100 WBCGrand Lake Joint Township District Memorial Hospital Morphology NOT REPORTEDNewark Hospital, WYCB with Diffon [id number]. Basophil0.06 k/uL Normal0.00-0.20T[facility]edo HospitalComment on above:Performed By: #### CDP, CP, LIP, TROPI, LIPRF, GLYHGB #### [facility] [address] [place] [address] Human Resources Benefits Specialist: Marie Mcmanus.Imm.Granulocyte0.11 k/uLNormal0.00-0.30T[facility]edo HospitalComment on above:Performed By: #### CDP, CP, LIP, TROPI, LIPRF, GLYHGB #### [facility] [address] [place] [address] Human Resources Benefits Specialist: Marie Mcmanus.Neutrophil (Seg)7.00 k/uLNormal1.50-8.10 [facility] HospitalComment on above:Performed By: #### CDP, CP, LIP, TROPI, LIPRF, GLYHGB #### [facility] [address] [place] [address] Human Resources Benefits Specialist: Brandon Anaya MDBasophils/100 WBC (Bld)1 %Normal0-2MercRidgecrest Regional HospitalComment on above:Performed By: #### CDP, CP, LIP, TROPI, LIPRF, GLYHGB #### [facility] [address] [place] [address] Human Resources Benefits Specialist: Brandon Anaya MDEosinophils (Bld) [#/Vol]0.13 10*3/uLNormal 0.00-0.44T[facility]edo HospitalComment on above:Performed By: #### CDP, CP, LIP, TROPI, LIPRF, GLYHGB #### [facility] [address] [place] [address] Human Resources Benefits Specialist: Brandon Anaya MDEosinophils/100 WBC (Bld)1 %Normal1-4T[facility]edo HospitalComment on above:Performed By: #### CDP, CP, LIP, TROPI, LIPRF, GLYHGB #### [address] [address] Human Resources Benefits Specialist: Brandon Anaya MDErythrocyte distribution width (RBC) [Ratio]14.6 %High11.8-14.4T[facility]edo HospitalComment on above:Performed By: #### CDP, CP, LIP, TROPI, LIPRF, GLYHGB #### [place] [address] Human Resources Benefits Specialist: Brandon Anaya MDHematocrit (Bld) [Volume fraction]41.6 %Normal 36.3-47.1[facility] Hospital OaklandComment on above:Performed By: #### CDP, CP, LIP, TROPI, LIPRF, GLYHGB #### [place] [address] Human Resources Benefits Specialist: Brandon Anaya MDHemoglobin (Bld) [Mass/Vol]13.4 g/dLNormal 11.9-15.1[facility] Hospital OaklandComment on above:Performed By: #### CDP, CP, LIP, TROPI, LIPRF, GLYHGB #### [place] [address] Human Resources Benefits Specialist: Brandon Anaya MDImmature granulocytes (Bld) [#/Vol]1 %Giac9LnbhdToledo HospitalComment on above:Performed By: #### CDP, CP, LIP, TROPI, LIPRF, GLYHGB #### [facility] [address] [place] [address] Human Resources Benefits Specialist: Brandon Anaya MDLymphocytes (Bld) [#/Vol]2.56 10*3/uLNormal 1.10-3.70T[facility]edo HospitalComment on above:Performed By: #### CDP, CP, LIP, TROPI, LIPRF, GLYHGB #### [facility] [address] [place] [address] Human Resources Benefits Specialist: Brandon Anaya MDLymphocytes/100 WBC (Bld)24 %Zfqqzf30-65EthqiToledo HospitalComment on above:Performed By: #### CDP, CP, LIP, TROPI, LIPRF, GLYHGB #### [place] [address] Human Resources Benefits Specialist: STEFFANIE Mcmanus (RBC) [Entitic mass]29.3 skMrklio28.2-33.5 [facility] HospitalComment on above:Performed By: #### CDP, CP, LIP, TROPI, LIPRF, GLYHGB #### [place] [address] Human Resources Benefits Specialist: STEFFANIE McmanusC (RBC) [Mass/Vol]32.2 g/vSSpmycz11.4-34.8 [facility] HospitalComment on above:Performed By: #### CDP, CP, LIP, TROPI, LIPRF, GLYHGB #### [place] [address] Human Resources Benefits Specialist: LIZZY McmanusCV (RBC) [Entitic vol]90.8 oHNdmrof02.6-102.9 [facility] HospitalComment on above:Performed By: #### CDP, CP, LIP, TROPI, LIPRF, GLYHGB #### [facility] [address] [place] [address] Human Resources Benefits Specialist: LIZZY Mcmanusonocytes (Bld) [#/Vol]0.78 10*3/uLNormal 0.10-1.20T[facility]edo HospitalComment on above:Performed By: #### CDP, CP, LIP, TROPI, LIPRF, GLYHGB #### [facility] [address] [place] [address] Human Resources Benefits Specialist: LIZZY Mcmanusonocytes/100 WBC (Bld)7 %Normal3-12T[facility]edo HospitalComment on above:Performed By: #### CDP, CP, LIP, TROPI, LIPRF, GLYHGB #### [address] [address] Human Resources Benefits Specialist: Davidson Mcmanusutrophil (Seg)66 %Ssuz54-07MlrgqToledo HospitalComment on above:Performed By: #### CDP, CP, LIP, TROPI, LIPRF, GLYHGB #### [address] [address] Human Resources Benefits Specialist: Brandon Anaya MDNRBC Automated0.0 per 100 WBCNormal0.0T[facility]edo HospitalComment on above:Performed By: #### CDP, CP, LIP, TROPI, LIPRF, GLYHGB #### [facility] [address] [place] [address] Human Resources Benefits Specialist: Nadeem Mcmanus mean volume (Bld) [Entitic vol]10.6 fL Normal8.1-13.5T[facility]edo HospitalComment on above:Performed By: #### CDP, CP, LIP, TROPI, LIPRF, GLYHGB #### [facility] [address] [place] [address] Human Resources Benefits Specialist: Bon Mcmanus (Bld) [#/Vol]241 10*3/wRRocerp351-532 [facility] HospitalComment on above:Performed By: #### CDP, CP, LIP, TROPI, LIPRF, GLYHGB #### [facility] [address] [place] [address] Human Resources Benefits Specialist: RICHA Mcmanus (Bld) [#/Vol]4.58 10*6/uLNormal3.95-5.11 [facility] HospitalComment on above:Performed By: #### CDP, CP, LIP, TROPI, LIPRF, GLYHGB #### [address] [address] Human Resources Benefits Specialist: RICHA Mcmanus morphology finding Nom (Bld)ANISOCYTOSIS PRESENTSamaritan North Health CenterComment on above:Performed By: #### CDP, CP, LIP, TROPI, LIPRF, GLYHGB #### [address] [address] Human Resources Benefits Specialist: LUCIAN Mcmanus (Bld) [#/Vol]10.6 10*3/uLNormal3.5-11.3[facility] Hospital OaklandComment on above:Performed By: #### CDP, CP, LIP, TROPI, LIPRF, GLYHGB #### [address] [address] Human Resources Benefits Specialist: Gustabo Mcmanus Diff PerformedNOT REPORTEDSamaritan North Health CenterComment on above:Performed By: #### CDP, CP, LIP, TROPI, LIPRF, GLYHGB #### [address] [address] Human Resources Benefits Specialist: Bon Mcmanus (Bld) [#/Vol]NOT REPORTEDSamaritan North Health CenterComment on above:Performed By: #### CDP, CP, LIP, TROPI, LIPRF, GLYHGB #### [facility] [address] [place] [address] Human Resources Benefits Specialist: LUCIAN Mcmanus MorphologyNOT REPORTEDSamaritan North Health CenterComment on above:Performed By: #### CDP, CP, LIP, TROPI, LIPRF, GLYHGB #### [employer] [address] [place] [address] Human Resources Benefits Specialist: WENDY Mcmanus LUMBAR SPINE W WO CONTRASTon 21-80-8554Hd compression fracture of the lumbar spine is [...] Radiol 2013; 10(10):789-794; J Vasc Surg. 2018; 67:2-77[facility], [place]EXAMINATION: MRI OF THE LUMBAR SPINE WITHOUT AND [...] roots are intact. The neural foramina are intact.[facility]- [place], KYEdi, Mhpn Incoming Radiant Results From [facility]/Pacs - 10/15/2019 11:11 PM EDT EXAMINATION: MRI [...] 2013; 10(10):789-794; J Vasc Surg. 2018; 67:2-77 [facility], WYMYCOPLASMA PNEUMONIAE ANTIBODY, IGMon 09-56-5785Umifjdcaxe pneumo IgM0.12<0.91[place], KYComment on above: Reference Range: <=0.90 Negative 0.91-1.09 Equivocal >=1.10 Positive Mycoplasma Ab, IgMon 62-95-4980Bwzkpcapgy Ab, IgM0.12Normal<0.91Toledo HospitalComment on above:Result Comment: Reference Range: <=0.90 Negative 0.91-1.09 Equivocal >=1.10 PositivePerformed By: #### CDP, CP, LIP, TROPI, LIPRF, GLYHGB #### [facility] [place] [address] Human Resources Benefits Specialist: LENORE Mcmanus Glucose Fingerstickon 26-10-2755Brslzha [Mass/Vol]100 mg/dL65 - 105 mg/dLNewark Hospital, KYGlucose [Mass/Vol]99 mg/dL 65 - 105 mg/dLNewark Hospital, KYGlucose [Mass/Vol]91 mg/dL65 - 105 mg/dLNewark Hospital, KYGlucose [Mass/Vol]95 mg/dL65 - 105 mg/dLNewark Hospital, KYRENIN on 36-12-1991Udkhb Activity0.1ng/mL/hrNewark Hospital, WYComment on above: (NOTE) INTERPRETIVE INFORMATION: Renin Activity [...] angiotensinogen is decreased. See Compliance Statement D: [email or web address] Performed By: [employer] [address] [place] [address] Printmaker: Nik Rosas MD, MS Renin CommentNOT [facility], KYRenin Activityon 60-71-4610Erkiy Activity0.1 ng/mL/hrNormLima Memorial HospitalComment on above: Result Comment: (NOTE) [...] angiotensinogen is decreased. See Compliance Statement D: [email or web address] Performed By: [employer] [address] [place] [phone] Printmaker: Nik Rosas MD, MSPerformed By: #### CDP, CP, LIP, TROPI, LIPRF, GLYHGB #### [facility] [address] [place] [address] Human Resources Benefits Specialist: Brandon Héctor Xochilt 53-53-5308Iefjzsqzqnm4 ng/dLBucyrus Community Hospital CLARACommunson healthcare [facility] on above:(NOTE) INTERPRETIVE INFORMATION: Aldosterone, Serum Reference [...] reference intervals for this test in the [employer] Test Directory ([employer]). Performed By: [employer] [place] [id number] Printmaker: Nik Rosas MD, MS Aldosterone CommentNOT REPORTEDEast [place], KYGeraldine 10-14-2019 Aldosterone5.0 ng/dLNoFairfield Medical CenterComment on above: Result Comment: (NOTE) INTERPRETIVE INFORMATION: [...] reference intervals for this test in the [employer] Test Directory ([employer]). Performed By: [employer] [place] [id number] Printmaker: Nik Rosas MD, MSPerformed By: #### CDP, CP, LIP, TROPI, LIPRF, GLYHGB #### [facility] [address] [place] [address] Human Resources Benefits Specialist: Josh Mcmanus Metab w/rfx MGon 10-14-2019(cont.)Normal [facility]edo HospitalComment on above:Result Comment: Average GFR for 70 or more years old: 75 mL/min/1.73sq m Chronic Kidney Disease: <60 mL/min/1.73sq m Kidney failure: <15 mL/min/1.73sq m eGFR calculated using average adult body mass. Additional eGFR calculator available at: http://www.Clutter/multiple_crcl_2012.htmPerformed By: #### CDP, CP, LIP, TROPI, LIPRF, GLYHGB #### [facility] [address] [place] [address] Human Resources Benefits Specialist: Brandon Anaya MDAnion gap [Moles/Vol]13 mmol/LNormal9-17T[facility]edo HospitalComment on above:Performed By: #### CDP, CP, LIP, TROPI, LIPRF, GLYHGB #### [facility] [address] [place] [address] Human Resources Benefits Specialist: Brandon Anaya MDCalcium [Mass/Vol]8.5 mg/dLLow8.6-10.4T[facility]edo HospitalComment on above:Performed By: #### CDP, CP, LIP, TROPI, LIPRF, GLYHGB #### [facility] [address] [place] [address] Human Resources Benefits Specialist: Brandon Anaya MDChloride [Moles/Vol]91 mmol/JEhl46-455GutffToledo HospitalComment on above:Performed By: #### CDP, CP, LIP, TROPI, LIPRF, GLYHGB #### [facility] [address] [place] [address] Human Resources Benefits Specialist: Brandon Anaya MDCO2 [Moles/Vol]26 mmol/FKrdmza49-28UqzwzToledo HospitalComment on above:Performed By: #### CDP, CP, LIP, TROPI, LIPRF, GLYHGB #### [address] [address] Human Resources Benefits Specialist: NEHAL Mcmanusreatinine [Mass/Vol]0.48 mg/dLLow0.50-0.90T[facility]edo HospitalComment on above:Performed By: #### CDP, CP, LIP, TROPI, LIPRF, GLYHGB #### [place] [address] Human Resources Benefits Specialist: Brandon Anaya MDGFR, Amer>60Normal>60T[facility]edo HospitalComment on above:Performed By: #### CDP, CP, LIP, TROPI, LIPRF, GLYHGB #### [place] [address] Human Resources Benefits Specialist: Brandon Anaya MDGFR,non Amer>60Normal>60T[facility]edo HospitalComment on above:Performed By: #### CDP, CP, LIP, TROPI, LIPRF, GLYHGB #### [place] [address] Human Resources Benefits Specialist: Brandon Anaya MDGlucose [Mass/Vol]104 mg/zTKpav11-38Jnnbf [facility] HospitalComment on above:Performed By: #### CDP, CP, LIP, TROPI, LIPRF, GLYHGB #### [place] [address] Human Resources Benefits Specialist: Brandon Anaya MDPotassium [Moles/Vol]3.7 mmol/LNormal3.7-5.3 [facility] HospitalComment on above:Performed By: #### CDP, CP, LIP, TROPI, LIPRF, GLYHGB #### [facility] [place] [address] Human Resources Benefits Specialist: FABIANA Mcmanusodium [Moles/Vol]130 mmol/WNdg070-593KijhxToledo HospitalComment on above:Performed By: #### CDP, CP, LIP, TROPI, LIPRF, GLYHGB #### [facility] [address] [place] [address] Human Resources Benefits Specialist: Brandon Anaya MDUrea nitrogen [Mass/Vol]19 mg/dLNormal8-23T[facility]edo HospitalComment on above:Performed By: #### CDP, CP, LIP, TROPI, LIPRF, GLYHGB #### [facility] [address] [place] [address] Human Resources Benefits Specialist: RADHA Mcmanus/CRE RatioNOT REPORTEDNormal9-20T[facility]edo HospitalComment on above:Performed By: #### CDP, CP, LIP, TROPI, LIPRF, GLYHGB #### [facility] [address] [place] [address] Human Resources Benefits Specialist: FABIANA Mcmanustaging:NOT REPORTEDNormalToledo HospitalComment on above:Performed By: #### CDP, CP, LIP, TROPI, LIPRF, GLYHGB #### [facility] [address] [place] [address] Human Resources Benefits Specialist: Josh Mcmanus Metabolic Panel w/ Reflex to MGon 29-98-1881Tuarb gap [Moles/Vol]13 mmol/L9 - 17 mmol/LMercy Health- [place], KYBun/Cre RatioNOT REPORTEDMer Health- [place], KYCalcium [Mass/Vol]8.5 mg/dLLow8.6 - 10.4 mg/dLMercy Health- [place], KYChloride [Moles/Vol]91 mmol/LLow98 - 107 mmol/LMercy Health- [place], KYCO2 [Moles/Vol]26 mmol/L20 - 31 mmol/LMKettering Health Main Campus, [place] Creatinine [Mass/Vol]0.48 mg/dLLow0.5 - 0.9 mg/dLNewark Hospital, KYGFR >60>60 mL/minNewark Hospital, KYGFR Non->60>60 mL/min [facility], KYGFR/1.73 sq M predicted among non-blacks MDRD (S/P/Bld) [Vol rate/Area][facility], WYComment on above:Average GFR for 70 or more years old: 75 mL/min/1.73sq m Chronic Kidney Disease: <60 mL/min/1.73sq m Kidney failure: <15 mL/min/1.73sq m eGFR calculated using average adult body mass. Additional eGFR calculator available at: http://www.Clutter/multiple_crcl_2012.htm GFR/1.73 sq M predicted among non-blacks MDRD (S/P/Bld) [Vol rate/Area]NOT REPORTEDNew[facility] Hospital, CLARAGlucose [Mass/Vol]104 mg/iQDovw75 - 99 mg/dLNewark Hospital, WYInterpretation and review of laboratory resultsAbnormalNewark Hospital, KYPotassium [Moles/Vol]3.7 mmol/L3.7 - 5.3 mmol/[facility], KYSodium [Moles/Vol]130 mmol/MXoy625 - 144 mmol/[facility], KYUrea nitrogen [Mass/Vol]19 mg/dL8 - 23 mg/dLNewark Hospital, WYCBC auto differential on 77-68-7494Agmrustq Lymphocytes3 %[facility], WYAtypical Lymphocytes Absolute0.30k/uLNewark Hospital, KYBasophils (Bld) [#/Vol]0.00 10*3/[facility], KYBasophils/100 WBC (Bld)0 %0 - 2 %[facility], WYDifferential TypeNOT REPORTEDNewark Hospital, KYEosinophils (Bld) [#/Vol]0.10 10*3/[facility], KYEosinophils/100 WBC (Bld)1 %1 - 4 %[place], KYErythrocyte distribution width (RBC) [Ratio]14.7 %High11.8 - 14.4 %[place], [place] Hematocrit (Bld) [Volume fraction]39.5 %36.3 - 47.1 %[place], [place] Hemoglobin (Bld) [Mass/Vol]12.9 g/dL11.9 - 15.1 g/dLEast Wenatchee, KYImmature granulocytes (Bld) [#/Vol]0.10 10*3/[facility], WYImmature granulocytes (Bld) [#/Vol]1 %Xsbb8CksonEast Wenatchee, KYInterpretation and review of laboratory resultsAbnormalEast [place], KYLymphocytes (Bld) [#/Vol]2.80 10*3/[facility], WYLymphocytes/100 WBC (Bld)28 %24 - 44 %[place], KYMCH (RBC) [Entitic mass]29.5 pg25.2 - 33.5 pgEast Wenatchee, KYMCHC (RBC) [Mass/Vol]32.7 g/dL28.4 - 34.8 g/dLEast Wenatche[place], KYMCV (RBC) [Entitic vol]90.2 fL82.6 - 102.9 fLEast Wenatche[place], KYMonocytes (Bld) [#/Vol]0.50 10*3/[facility], WYMonocytes/100 WBC (Bld)5 %1 - 7 %[place], [place] Morphology Alfredo (Bld) [Interp]ANISOCYTOSIS PRESENTEast Wenatchee, KYPlatelet mean volume (Bld) [Entitic vol]10.1 fL8.1 - 13.5 fLEast Wenatchee, KYPlatelets (Bld) [#/Vol]190 10*3/[facility], WYPlatelets (Bld) [#/Vol]NOT REPORTED [place], KYRBC (Bld) [#/Vol]4.38 10*6/uL3.95 - 5.11 m/uLProMedica Defiance [facility] morphology finding Nom (Bld)NOT REPORTEDWilson Healthented neutrophils/100 WBC (Bld)62 %36 - 66 %[place], KYSegs Absolute6.20[facility] HospitalBC (Bld) [#/Vol]10.0 10*3/uLGrand Lake Joint Township District Memorial Hospital (Bld) [#/Vol]0.0 10*3/uL0.0 per 100 WBCGrand Lake Joint Township District Memorial Hospital MorphologyNOT REPORTED [facility] with Diffon [id number]. Atypical Lymphs0.30 k/uL NormalToledo HospitalComment on above:Performed By: #### CDP, CP, LIP, TROPI, LIPRF, GLYHGB #### [employer] [address] [place] [address] Human Resources Benefits Specialist: Marie Mcmanus. Basophil0.00 k/uLNormal0.0-0.2[facility] Hospital OaklandComment on above:Performed By: #### CDP, CP, LIP, TROPI, LIPRF, GLYHGB #### [employer] [address] [place] [address] Human Resources Benefits Specialist: MDAbs. MariettaImm.Granulocyte0.10 k/uLNormal0.00-0.30T[facility]edo HospitalComment on above:Performed By: #### CDP, CP, LIP, TROPI, LIPRF, GLYHGB #### [employer] [address] [place] [address] Human Resources Benefits Specialist: Marie Mcmanus.Neutrophil (Seg)6.20 k/uLNormal1.8-7.7T[facility]edo HospitalComment on above:Performed By: #### CDP, CP, LIP, TROPI, LIPRF, GLYHGB #### [employer] [address] [place] [address] Human Resources Benefits Specialist: Christin Mcmanus Lymphs3 %NormalToledo HospitalComment on above:Performed By: #### CDP, CP, LIP, TROPI, LIPRF, GLYHGB #### [facility] [address] [place] [address] Human Resources Benefits Specialist: Brandon Anaya MDBasophils/100 WBC (Bld)0 %Normal0-2MercRidgecrest Regional HospitalComment on above:Performed By: #### CDP, CP, LIP, TROPI, LIPRF, GLYHGB #### [facility] [address] [place] [address] Human Resources Benefits Specialist: Brandon Anaya MDEosinophils (Bld) [#/Vol]0.10 10*3/uLNormal 0.0-0.4T[facility] HospitalComment on above:Performed By: #### CDP, CP, LIP, TROPI, LIPRF, GLYHGB #### [facility] [address] [place] [address] Human Resources Benefits Specialist: Brandon Anaya MDEosinophils/100 WBC (Bld)1 %Normal1-4T[facility]edo HospitalComment on above:Performed By: #### CDP, CP, LIP, TROPI, LIPRF, GLYHGB #### [facility] [address] [place] [address] Human Resources Benefits Specialist: Brandon Anaya MDImmature granulocytes (Bld) [#/Vol]1 %Fvdm0MqkrsToledo HospitalComment on above:Performed By: #### CDP, CP, LIP, TROPI, LIPRF, GLYHGB #### [facility] [address] [place] [address] Human Resources Benefits Specialist: Brandon Anaya MDLymphocytes (Bld) [#/Vol]2.80 10*3/uLNormal 1.0-4.8T[facility]edo HospitalComment on above:Performed By: #### CDP, CP, LIP, TROPI, LIPRF, GLYHGB #### [facility] [address] [place] [address] Human Resources Benefits Specialist: Brandon Anaya MDLymphocytes/100 WBC (Bld)28 %Pzibhb09-03QieesToledo HospitalComment on above:Performed By: #### CDP, CP, LIP, TROPI, LIPRF, GLYHGB #### [address] [address] Human Resources Benefits Specialist: Brandon Anaya MDMonocytes (Bld) [#/Vol]0.50 10*3/uLNormal0.1-0.8 [facility] HospitalComment on above:Performed By: #### CDP, CP, LIP, TROPI, LIPRF, GLYHGB #### [address] [address] Human Resources Benefits Specialist: LIZZY Mcmanusonocytes/100 WBC (Bld)5 %Normal1-7T[facility]edo HospitalComment on above:Performed By: #### CDP, CP, LIP, TROPI, LIPRF, GLYHGB #### [facility] [address] [place] [address] Human Resources Benefits Specialist: LIZZY Mcmanusorphology Alfredo (Bld) [Interp]ANISOCYTOSIS PRESENTNormalToledo HospitalComment on above:Performed By: #### CDP, CP, LIP, TROPI, LIPRF, GLYHGB #### [facility] [address] [place] [address] Human Resources Benefits Specialist: Brandon Anaya MDNeutrophil (Seg)62 %Vdjmwo94-38NebeoToledo HospitalComment on above:Performed By: #### CDP, CP, LIP, TROPI, LIPRF, GLYHGB #### [facility] [address] [place] [address] Human Resources Benefits Specialist: Brandon Anaya MDErythrocyte distribution width (RBC) [Ratio]14.7 %High11.8-14.4T[facility]edo HospitalComment on above:Performed By: #### CDP, CP, LIP, TROPI, LIPRF, GLYHGB #### [address] [address] Human Resources Benefits Specialist: Brandon Anaya MDHematocrit (Bld) [Volume fraction]39.5 %Normal 36.3-47.1[facility] Hospital OaklandComment on above:Performed By: #### CDP, CP, LIP, TROPI, LIPRF, GLYHGB #### [address] [address] Human Resources Benefits Specialist: Brandon Anaya MDHemoglobin (Bld) [Mass/Vol]12.9 g/dLNormal 11.9-15.1[facility] OaklandComment on above:Performed By: #### CDP, CP, LIP, TROPI, LIPRF, GLYHGB #### [address] [address] Human Resources Benefits Specialist: LIZZY McmanusCH (RBC) [Entitic mass]29.5 quIxysay22.2-33.5 [facility] HospitalComment on above:Performed By: #### CDP, CP, LIP, TROPI, LIPRF, GLYHGB #### [place] [address] Human Resources Benefits Specialist: STEFFANIE McmanusC (RBC) [Mass/Vol]32.7 g/fFPvabqh06.4-34.8 [facility] HospitalComment on above:Performed By: #### CDP, CP, LIP, TROPI, LIPRF, GLYHGB #### [address] [address] Human Resources Benefits Specialist: LIZZY McmanusCV (RBC) [Entitic vol]90.2 sYCpegux36.6-102.9 [facility] HospitalComment on above:Performed By: #### CDP, CP, LIP, TROPI, LIPRF, GLYHGB #### [facility] [address] [place] [address] Human Resources Benefits Specialist: JOSIE Mcmanus Automated0.0 per 100 WBCNormal0.0Toledo HospitalComment on above:Performed By: #### CDP, CP, LIP, TROPI, LIPRF, GLYHGB #### [facility] [address] [place] [address] Human Resources Benefits Specialist: Nadeem Mcmanus mean volume (Bld) [Entitic vol]10.1 fL Normal8.1-13.5T[facility]edo HospitalComment on above:Performed By: #### CDP, CP, LIP, TROPI, LIPRF, GLYHGB #### [facility] [address] [place] [address] Human Resources Benefits Specialist: Bon Mcmanus (Bld) [#/Vol]190 10*3/rPVyxfei882-059 [facility] HospitalComment on above:Performed By: #### CDP, CP, LIP, TROPI, LIPRF, GLYHGB #### [address] [address] Human Resources Benefits Specialist: RICHA Mcmanus (Bld) [#/Vol]4.38 10*6/uLNormal3.95-5.11 [facility] HospitalComment on above:Performed By: #### CDP, CP, LIP, TROPI, LIPRF, GLYHGB #### [facility] [address] [place] [id number] Human Resources Benefits Specialist: LUCIAN Mcmanus (Bld) [#/Vol]10.0 10*3/uLNormal3.5-11.3[facility] OaklandComment on above:Performed By: #### CDP, CP, LIP, TROPI, LIPRF, GLYHGB #### [facility] [address] [place] [address] Human Resources Benefits Specialist: Gustabo Mcmanus Diff PerformedNOT REPORTEDNormalToledo HospitalComment on above:Performed By: #### CDP, CP, LIP, TROPI, LIPRF, GLYHGB #### [facility] [address] [place] [phone] Human Resources Benefits Specialist: BLADIMIR Mcmanuslatelets (Bld) [#/Vol]NOT REPORTEDNormLima Memorial HospitalComment on above:Performed By: #### CDP, CP, LIP, TROPI, LIPRF, GLYHGB #### [facility] [address] [place] [address]36 Human Resources Benefits Specialist: RICHA Mcmanus morphology finding Nom (Bld)NOT REPORTED [facility] Health CenterComment on above:Performed By: #### CDP, CP, LIP, TROPI, LIPRF, GLYHGB #### [facility] [address] [place] [address] Human Resources Benefits Specialist: LUCIAN Mcmanus MorphologyNOT REPORTEDSamaritan North Health CenterComment on above:Performed By: #### CDP, CP, LIP, TROPI, LIPRF, GLYHGB #### [facility] [address] [place] [address] 7[address]52 Human Resources Benefits Specialist: LIZZY McmanusETANEPHRINES PLASMA FREEon 10-14-2019 Metaneph/Plasma InterpSEast Pittsburgh, KYComment on above:(NOTE) INTERPRETIVE INFORMATION: Metanephrines, Plasma [...] should be considered. See Compliance Statement B: [employer] Performed By: [facility] [address] [place] [id number] Printmaker: Nik Rosas MD, MS Metanephrine0.14 nmol/L0 - 0.49 nmol/[facility], KYNormetanephrine0.73 nmol/L0 - 0.89 nmol/[facility] [place], KYMetanephrine, Plasmaon 10-14-2019 Metaneph InterpSee NoteNormalToledo HospitalComment on above: Result Comment: (NOTE) INTERPRETIVE [...] should be considered. See Compliance Statement B: [employer] Performed By: [facility] [address] [place] [address] Printmaker: Nik Rosas MD, MSPerformed By: #### CDP, CP, LIP, TROPI, LIPRF, GLYHGB #### [employer] [address] [place] [address] Human Resources Benefits Specialist: Brandon Anaya, MDMetanephrine0.14 nmol/LNormal0.00-0.49Toledo HospitalComment on above:Performed By: #### CDP, CP, LIP, TROPI, LIPRF, GLYHGB #### [employer] [facility] [place], [place] [phone] Human Resources Benefits Specialist: Annabelle Mcmanusetanephrine0.73 nmol/LNormal0.00-0.89Toledo HospitalComment on above:Performed By: #### CDP, CP, LIP, TROPI, LIPRF, GLYHGB #### [facility] [address] [place] [address] [phone] Human Resources Benefits Specialist: LENORE Mcmanus Glucose Fingerstickon [id number] [Mass/Vol]86 mg/dL65 - 105 mg/dLNewark [facility], KYGlucose [Mass/Vol]105 mg/dL 65 - 105 mg/dLNewark Hospital, KYGlucose [Mass/Vol]159 mg/wRHuxx10 - 105 mg/dL [facility], WYInterpretation and review of laboratory resultsAbnoCleveland Clinic Euclid Hospital, KYGlucose [Mass/Vol]113 mg/qSZwuv89 - 105 mg/dLNewark Hospital, [place] Interpretation and review of laboratory resultsAbUniversity Hospitals Lake [facility], KYT. pallidum Abon 10-14-2019T. pallidum, IgGNONREACTIVENONHolmes County Joel [facility]ome[facility], KYComment on above: T. pallidum antibodies are not detected. There is no serological evidence of infection with T. pallidum (early primary syphilis cannot be excluded). Retest in 2-4 weeks if syphilis is clinically suspect. T.pallidum Ab Screenon 10-14-2019T.pallidum Ab ScreenNONREACTIVEACMC Healthcare SystemComment on above:Result Comment: T. pallidum antibodies are not detected. There is no serological evidence of infection with T. pallidum (early primary syphilis cannot be excluded). Retest in 2-4 weeks if syphilis is clinically suspect.Performed By: #### CDP, CP, LIP, TROPI, LIPRF, GLYHGB #### [employer] [facility] [place], [place] [phone] Human Resources Benefits Specialist: LITA McmanusONIAana [phone] (P) [Mass/Vol]28 umol/L11 - 51 umol/LMercy Health- [place], KYAmmoniaon [id number] (P) [Mass/Vol]28 umol/NGthgak99-77Hnfse [facility] Valley HospitalComment on above: Performed By: #### CDP, CP, LIP, TROPI, LIPRF, GLYHGB #### [facility] [address] [phone] Human Resources Benefits Specialist: MASHA Mcmanus GAS, VENOUSon [phone] TestNOT REPORTEDMercy Health- [place], KYaPTT Coag (Bld) [Time]37.0 sMer[facility]- [place], [place] Carboxyhemoglobin1.3 %0 - 5 %[facility]- [place], KYComment on above: Reference Range: Non-Smokers 0-2% Average Smoker 2-4% Heavy Smoker <10% PSN1GIBS AIRMercy Health- [place], KYHCO3, Taxuzo79.4 mmol/L24 - 30 mmol/LMercy Health- [place], KYInterpretation and review of laboratory resultsAbnormalMercy Health- [place], KYMethemoglobinNOT REPORTED0 - 1.5 %[facility]- [place], KYModeNOT REPORTEDMer[facility]- [place], KYNegative Base Excess, VenNOT REPORTED0 - 2 mmol/L [facility]- [place], KYNOTIFICATIONNOT REPORTEDMer[facility]- [place], KYNOTIFICATION TIMENOT REPORTEDMer[facility]- [place], KYO2 Device/Flow/%NOT REPORTEDMercy [facility]- [place], KYOxygen saturation in Blood78.1 %60 - 85 %[facility]- [place], KYOxyhemoglobin NOT NZRLASLM98 - 98 %[facility]- [place], KYpCO2, Ven42.6[facility]- [place], KYpCO2, Noah, Temp AdjNOT REPORTEDMer[facility]- [place], KYPeep/CpapNOT REPORTED[facility]- [place], KYpH, Ven7.439HighMercy Health- [place], KYpH, Noah, Temp AdjNOT REPORTED[facility]- [place], KYpO2, Ven41.1[facility]- [place], KYpO2, Noah, Temp AdjNOT REPORTED [facility]- [place], KYPositive Base Excess, Ven4.2 mmol/LHigh0 - 2 mmol/LMercy Health- [place], KYPSVNOT REPORTEDBarn[facility]- [place], KYPt. PositionNOT REPORTEDBarn[facility]- [place], KYSample SiteNOT REPORTEDBarn[facility]- [place], KYSet RateNOT REPORTED [facility]- [place], KYText for RespiratoryNOT REPORTEDBarn[facility]ville Hospital [facility]- [place], KYTotal Hb NOT BXOSUFHL89 - 16 g/dlMer Health- [place], KYTotal RateNOT REPORTEDBarnesville Hospital [facility]- [place], KYVTNOT REPORTEDPomerene Hospital- [place], KYBasic Metab w/rfx MGon 10-13-2019 Potassium [Moles/Vol]3.4 mmol/LLow3.7-5.3Msheltering arms hospitaly [facility]oma Valley HospitalComment on above:Performed By: #### CDP, CP, LIP, TROPI, LIPRF, GLYHGB #### [employer] [address] [place] [address] [phone] Human Resources Benefits Specialist: Brandon Anaya MD(cont.)[facility] Comment on above:Result Comment: Average GFR for 70 or more years old: 75 mL/min/1.73sq m Chronic Kidney Disease: <60 mL/min/1.73sq m Kidney failure: <15 mL/min/1.73sq m eGFR calculated using average adult body mass. Additional eGFR calculator available at: http://www.Orderlord.Corpora/multiple_crcl_2012.htmPerformed By: #### CDP, CP, LIP, TROPI, LIPRF, GLYHGB #### [employer] [address] [place] [address] [phone] Human Resources Benefits Specialist: Brandon Anaya MDAnion gap [Moles/Vol]16 mmol/LNormal9-17Toledo HospitalComment on above:Performed By: #### CDP, CP, LIP, TROPI, LIPRF, GLYHGB #### [employer] [address] [place] [address] [phone] Human Resources Benefits Specialist: Brandon Anaya MDCalcium [Mass/Vol]9.0 mg/dLNormal8.6-10.4Toledo HospitalComment on above:Performed By: #### CDP, CP, LIP, TROPI, LIPRF, GLYHGB #### [facility] [address] [place] [address] 07924 Human Resources Benefits Specialist: Brandon Anaya MDChloride [Moles/Vol]90 mmol/IAgy77-113FcrydToledo HospitalComment on above:Performed By: #### CDP, CP, LIP, TROPI, LIPRF, GLYHGB #### [facility] [address] [place] [address] [phone] Human Resources Benefits Specialist: Brandon Anaya MDCO2 [Moles/Vol]25 mmol/MGhbzug78-09LwjfuToledo HospitalComment on above:Performed By: #### CDP, CP, LIP, TROPI, LIPRF, GLYHGB #### [facility] [address] [place] [address] 97774 Human Resources Benefits Specialist: Brandon Anaya [facility] – TULSAreatinine [Mass/Vol]0.47 mg/dLLow0.50-0.90Toledo HospitalComment on above:Performed By: #### CDP, CP, LIP, TROPI, LIPRF, GLYHGB #### [facility] [address] [place] [address] 08335 Human Resources Benefits Specialist: CAROLYN Mcmanus, Amer>60Normal>60Toledo HospitalComment on above:Performed By: #### CDP, CP, LIP, TROPI, LIPRF, GLYHGB #### [facility] [address] [place] [address] 26212 Human Resources Benefits Specialist: CAROLYN Mcmanus,non Amer>60Normal>60Toledo HospitalComment on above:Performed By: #### CDP, CP, LIP, TROPI, LIPRF, GLYHGB #### [facility] [address] [place] [address] 09156 Human Resources Benefits Specialist: Brandon Anaya MDGlucose [Mass/Vol]113 mg/oSJdjl88-05ByxkwUCSF Benioff Children's Hospital OaklandComment on above:Performed By: #### CDP, CP, LIP, TROPI, LIPRF, GLYHGB #### [facility] [address] [place] [address] 72605 Human Resources Benefits Specialist: FABIANA Mcmanusodium [Moles/Vol]131 mmol/KNhh440-727NnopvToledo HospitalComment on above:Performed By: #### CDP, CP, LIP, TROPI, LIPRF, GLYHGB #### [facility] [address] [place] [address] 80990 Human Resources Benefits Specialist: Brandon Anaya MDUrea nitrogen [Mass/Vol]16 mg/dLNormal8-23Toledo HospitalComment on above:Performed By: #### CDP, CP, LIP, TROPI, LIPRF, GLYHGB #### [facility] [address] [place] [address] 99778 Human Resources Benefits Specialist: RADHA Mcmanus/CRE RatioNOT REPORTEDNormal9-20Toledo HospitalComment on above:Performed By: #### CDP, CP, LIP, TROPI, LIPRF, GLYHGB #### [facility] [address] [place] [address] 40572 Human Resources Benefits Specialist: FABIANA Mcmanustaging:NOT REPORTEDNormalToledo HospitalComment on above:Performed By: #### CDP, CP, LIP, TROPI, LIPRF, GLYHGB #### [facility] [address] [place] [address] 93307 Human Resources Benefits Specialist: Josh Mcmanus Metabolic Panel w/ Reflex to MGon 30-99-4292Kkckh gap [Moles/Vol]16 mmol/L9 - 17 mmol/LMercy [facility]- [place], KYBun/Cre RatioNOT REPORTEDAkron [facility] [place], KYCalcium [Mass/Vol]9.0 mg/dL8.6 - 10.4 mg/dLPomerene Hospital- [place], KYChloride [Moles/Vol]90 mmol/LLow98 - 107 mmol/LMBlanchard Valley Health System [facility]- [place], KYCO2 [Moles/Vol]25 mmol/L20 - 31 mmol/LMohiohealth doctors hospital Health- [place], [place] Creatinine [Mass/Vol]0.47 mg/dLLow0.5 - 0.9 mg/dLPomerene Hospital- [place], KYGFR >60>60 mL/minAkron Children'S Hospital [place], KYGFR Non->60>60 mL/min [facility], KYGFR/1.73 sq M predicted among non-blacks MDRD (S/P/Bld) [Vol rate/Area]NOT REPORTEDAkron Children'S Hospital [place], KYGFR/1.73 sq M predicted among non- blacks MDRD (S/P/Bld) [Vol rate/Area][facility], KYComment on above: Average GFR for 70 or more years old: 75 mL/min/1.73sq m Chronic Kidney Disease: <60 mL/min/1.73sq m Kidney failure: <15 mL/min/1.73sq m eGFR calculated using average adult body mass. Additional eGFR calculator available at: http://www.Clutter/multiple_crcl_2011.htm Glucose [Mass/Vol]113 mg/vFCepk00 - 99 mg/dLNewark Hospital, KYInterpretation and review of laboratory resultsAbnormalNewark Hospital, KYPotassium [Moles/Vol]3.4 mmol/LLow3.7 - 5.3 mmol/LMBlanchard Valley Health System [facility]- [place], KYSodium [Moles/Vol] 131 mmol/MPga232 - 144 mmol/LMBlanchard Valley Health System [facility]- [place], KYUrea nitrogen [Mass/Vol]16 mg/dL8 - 23 mg/dLNewark Hospital, KYCBC auto differentialon [id number] (Bld) [#/Vol]0.07 10*3/uLAkron Children'S Hospital [place], KYBasophils/100 WBC (Bld)1 %0 - 2 % [facility], KYDifferential TypeNOT REPORTEDMercy Health- [place], KYEosinophils (Bld) [#/Vol]10*3/uLPomerene Hospital- [place], KYEosinophils/100 WBC (Bld)0 %Low1 - 4 % [facility]- [place], KYErythrocyte distribution width (RBC) [Ratio]15.0 %High11.8 - 14.4 %[facility]- [place], KYHematocrit (Bld) [Volume fraction]45.5 %36.3 - 47.1 % [facility]- [place], KYHemoglobin (Bld) [Mass/Vol]14.5 g/dL11.9 - 15.1 g/dLPomerene Hospital- [place], KYImmature granulocytes (Bld) [#/Vol]0.14 10*3/uLPomerene Hospital- [place], KYImmature granulocytes (Bld) [#/Vol]1 %Gvzq6SuwthAkron Children'S Hospital [place], KYInterpretation and review of laboratory resultsAbnormalAkron Children'S Hospital [place], KYLymphocytes (Bld) [#/Vol]2.84 10*3/[facility]- [place], KYLymphocytes/100 WBC (Bld)23 %Low24 - 43 % [facility]- [place], KYMCH (RBC) [Entitic mass]29.8 pg25.2 - 33.5 pgPomerene Hospital- [place], KYMCHC (RBC) [Mass/Vol]31.9 g/dL28.4 - 34.8 g/dLAkron Children'S Hospital [place], KYMCV (RBC) [Entitic vol]93.4 fL82.6 - 102.9 fLPomerene Hospital- [place], KYMonocytes (Bld) [#/Vol]1.22 10*3/uLHighPomerene Hospital- [place], KYMonocytes/100 WBC (Bld)10 %3 - 12 % [facility]- [place], KYPlatelet mean volume (Bld) [Entitic vol]10.5 fL8.1 - 13.5 fL [facility]- [place], KYPlatelets (Bld) [#/Vol]NOT REPORTEDPomerene Hospital- [place], [place] Platelets (Bld) [#/Vol]210 10*3/uLPomerene Hospital- [place], KYRBC (Bld) [#/Vol]4.87 10*6/uL3.95 - 5.11 m/uLNewark Hospital, WYRB morphology finding Nom (Bld) ANISOCYTOSIS PRESENTNewark Hospital, Central Park Hospitalgmented neutrophils/100 WBC (Bld)65 % 36 - 65 %[place], KYSegs Absolute8.01[facility], WYWBC (Bld) [#/Vol]12.3 10*3/uLHighEast Wenatchee, KYWBC (Bld) [#/Vol]0.0 10*3/uL0.0 per 100 WBCNewark Hospital, [facility] MorphologyNOT REPORTEDNewark Hospital, [facility] with Diffon [id number]. Basophil0.07 k/uLNormal0.00-0.20Toledo HospitalComment on above:Performed By: #### CDP, CP, LIP, TROPI, LIPRF, GLYHGB #### [facility] [address] [place] [address] Human Resources Benefits Specialist: Marie Mcmanus.Imm.Granulocyte0.14 k/uLNormal0.00-0.30Toledo HospitalComment on above:Performed By: #### CDP, CP, LIP, TROPI, LIPRF, GLYHGB #### [facility] [address] [place] [address] Human Resources Benefits Specialist: Marie Mcmanus.Neutrophil (Seg)8.01 k/uLNormal1.50-8.10 Toledo HospitalComment on above:Performed By: #### CDP, CP, LIP, TROPI, LIPRF, GLYHGB #### [facility] [address] [place] [address] Human Resources Benefits Specialist: Radha Mcmanussophils/100 WBC (Bld)1 %Normal0-2MUCSF [facility] Hospital OaklandComment on above:Performed By: #### CDP, CP, LIP, TROPI, LIPRF, GLYHGB #### [facility] [address] [place] [address] Human Resources Benefits Specialist: Brandon Anaya MDEosinophils (Bld) [#/Vol]10*3/uLNormal0.00-0.44 [facility]edo HospitalComment on above:Performed By: #### CDP, CP, LIP, TROPI, LIPRF, GLYHGB #### [address] [address] Human Resources Benefits Specialist: MAU Mcmanusosinophils/100 WBC (Bld)0 %Low1-4Toledo HospitalComment on above:Performed By: #### CDP, CP, LIP, TROPI, LIPRF, GLYHGB #### [place] [address] Human Resources Benefits Specialist: Brandon Anaya MDErythrocyte distribution width (RBC) [Ratio]15.0 %High11.8-14.4Toledo HospitalComment on above:Performed By: #### CDP, CP, LIP, TROPI, LIPRF, GLYHGB #### [place] [address] Human Resources Benefits Specialist: Brandon Anaya MDHematocrit (Bld) [Volume fraction]45.5 %Normal 36.3-47.1MUCSF [facility] Hospital OaklandComment on above:Performed By: #### CDP, CP, LIP, TROPI, LIPRF, GLYHGB #### [place] [address] Human Resources Benefits Specialist: Brandon Anaya MDHemoglobin (Bld) [Mass/Vol]14.5 g/dLNormal 11.9-15.1MU[facility] Hospital OaklandComment on above:Performed By: #### CDP, CP, LIP, TROPI, LIPRF, GLYHGB #### [facility] [address] [place] [address] 9[address]50 Human Resources Benefits Specialist: Brandon Anaya MDImmature granulocytes (Bld) [#/Vol]1 %Mwar4GufznToledo HospitalComment on above:Performed By: #### CDP, CP, LIP, TROPI, LIPRF, GLYHGB #### [facility] [address] [place] [address] 96685 Human Resources Benefits Specialist: Brandon Anaya MDLymphocytes (Bld) [#/Vol]2.84 10*3/uLNormal 1.10-3.70Toledo HospitalComment on above:Performed By: #### CDP, CP, LIP, TROPI, LIPRF, GLYHGB #### [facility] [address] [place] [address]13 Human Resources Benefits Specialist: Kortney Mcmanusmphocytes/100 WBC (Bld)23 %Gsg67-58IkxrmToledo HospitalComment on above:Performed By: #### CDP, CP, LIP, TROPI, LIPRF, GLYHGB #### [facility] [address] [place] [address] 92790 Human Resources Benefits Specialist: STEFFANIE Mcmanus (RBC) [Entitic mass]29.8 cdPsldac97.2-33.5 [facility] HospitalComment on above:Performed By: #### CDP, CP, LIP, TROPI, LIPRF, GLYHGB #### [facility] [address] [place] [address] 91990 Human Resources Benefits Specialist: STEFFANIE McmanusC (RBC) [Mass/Vol]31.9 g/mJMzsleu83.4-34.8 [facility] HospitalComment on above:Performed By: #### CDP, CP, LIP, TROPI, LIPRF, GLYHGB #### [facility] [address] [place] [address] 21703 Human Resources Benefits Specialist: LIZZY McmanusCV (RBC) [Entitic vol]93.4 pADocpmk58.6-102.9 [facility] CenterComment on above:Performed By: #### CDP, CP, LIP, TROPI, LIPRF, GLYHGB #### [address] [address] Human Resources Benefits Specialist: LIZZY Mcmanusonocytes (Bld) [#/Vol]1.22 10*3/uLHigh0.10-1.20 [facility] HospitalComment on above:Performed By: #### CDP, CP, LIP, TROPI, LIPRF, GLYHGB #### [address] [address] Human Resources Benefits Specialist: LIZZY Mcmanusonocytes/100 WBC (Bld)10 %Normal3-12Toledo HospitalComment on above:Performed By: #### CDP, CP, LIP, TROPI, LIPRF, GLYHGB #### [address] [address] Human Resources Benefits Specialist: Davidson Mcmanusutrophil (Seg)65 %Xpqknv27-91FsboxToledo HospitalComment on above:Performed By: #### CDP, CP, LIP, TROPI, LIPRF, GLYHGB #### [address] [address] Human Resources Benefits Specialist: Brandon Anaya MDNRBC Automated0.0 per 100 WBCNormal0.0Toledo HospitalComment on above:Performed By: #### CDP, CP, LIP, TROPI, LIPRF, GLYHGB #### [address] [address] Human Resources Benefits Specialist: BLADIMIR Mcmanuslatelet mean volume (Bld) [Entitic vol]10.5 fL Normal8.1-13.5Toledo HospitalComment on above:Performed By: #### CDP, CP, LIP, TROPI, LIPRF, GLYHGB #### [facility] [address] [place] [address] 82808 Human Resources Benefits Specialist: Bon Mcmanus (Bld) [#/Vol]210 10*3/uHGtlgkj819-866 [facility] HospitalComment on above:Performed By: #### CDP, CP, LIP, TROPI, LIPRF, GLYHGB #### [address] [address] Human Resources Benefits Specialist: RICHA Mcmanus (Bld) [#/Vol]4.87 10*6/uLNormal3.95-5.11 [facility] HospitalComment on above:Performed By: #### CDP, CP, LIP, TROPI, LIPRF, GLYHGB #### [address] [address] Human Resources Benefits Specialist: RICHA Mcmanus morphology finding Nom (Bld)ANISOCYTOSIS PRESENTSamaritan North Health CenterComment on above:Performed By: #### CDP, CP, LIP, TROPI, LIPRF, GLYHGB #### [address] [address] Human Resources Benefits Specialist: LUCIAN Mcmanus (Bld) [#/Vol]12.3 10*3/uLHigh3.5-11.3MU[facility] Hospital OaklandComment on above:Performed By: #### CDP, CP, LIP, TROPI, LIPRF, GLYHGB #### [address] [address] Human Resources Benefits Specialist: Gustabo Mcmanus PerformedNOT REPORTEDSamaritan North Health CenterComment on above:Performed By: #### CDP, CP, LIP, TROPI, LIPRF, GLYHGB #### [address] [address] Human Resources Benefits Specialist: Bon Mcmanus (Bld) [#/Vol]NOT REPORTEDSamaritan North Health CenterComment on above:Performed By: #### CDP, CP, LIP, TROPI, LIPRF, GLYHGB #### [employer] [address] [place], [place] [phone] Human Resources Benefits Specialist: LUCIAN Mcmanus MorphologyNOT [facility] Portland Medical CenterComment on above:Performed By: #### CDP, CP, LIP, TROPI, LIPRF, GLYHGB #### [facility] [address] [place] [address] [phone] Human Resources Benefits Specialist: Brandon Anaya MDMagnesiumon [id number] [Mass/Vol]2.2 mg/dLNormal1.6-2.6[facility] HospitalComment on above:Performed By: #### CDP, CP, LIP, TROPI, LIPRF, GLYHGB #### [facility] [address] [place] [address] [phone] Human Resources Benefits Specialist: Brandon Anaya MDMagnesium [Mass/Vol]2.2 mg/dL1.6 - 2.6 mg/dL [facility], WYPOC Glucose Fingerstickon 89-77-9826Wwpjnfh [Mass/Vol]121 mg/hJWtua92 - 105 mg/dLNewark Hospital, WYInterpretation and review of laboratory resultsAbUniversity Hospitals Lake West [facility] Center, WYGlucose [Mass/Vol]100 mg/dL65 - 105 mg/dLNewark Hospital, KYGlucose [Mass/Vol]104 mg/dL65 - 105 mg/dLNewark Hospital, KYGlucose [Mass/Vol]123 mg/lKPhrh22 - 105 mg/dLNewark Hospital, [place] Interpretation and review of laboratory resultsAbUniversity Hospitals Lake West [facility] Center, [place] Venous Blood Gaseson 09-07-4264Elde Temp.37.0Sam[facility] North Health CenterComment on above:Performed By: #### CDP, CP, LIP, TROPI, LIPRF, GLYHGB #### [facility] [address] [place] [address] [phone] Human Resources Benefits Specialist: NEHAL Mcmanusarboxlidia Hgb1.3 %Normal0-5Toledo HospitalComment on above:Result Comment: Reference Range: Non-Smokers 0-2% Average Smoker 2-4% Heavy Smoker <10%Performed By: #### CDP, CP, LIP, TROPI, LIPRF, GLYHGB #### [address] [address] Human Resources Benefits Specialist: Brandon Anaya MDFIO2ROOM AIRNormalToledo HospitalComment on above:Performed By: #### CDP, CP, LIP, TROPI, LIPRF, GLYHGB #### [address] [address] Human Resources Benefits Specialist: Brandon Anaya MDHCO3 (Bld) [Moles/Vol]28.4 mmol/QMruhrg01-73 [facility] HospitalComment on above:Performed By: #### CDP, CP, LIP, TROPI, LIPRF, GLYHGB #### [address] [address] Human Resources Benefits Specialist: Brandon Anaya MDOxygen (Bld) [Partial pressure]41.1 mm[Hg]Normal 30-50T[facility]edo HospitalComment on above:Performed By: #### CDP, CP, LIP, TROPI, LIPRF, GLYHGB #### [place] [address] Human Resources Benefits Specialist: Brandon Anaya MDOxygen saturation in Blood78.1 %Obwgkm83.0-85.0 [facility] HospitalComment on above:Performed By: #### CDP, CP, LIP, TROPI, LIPRF, GLYHGB #### [address] [address] Human Resources Benefits Specialist: Bladimir McmanusCO242.9Lazchr11-57TzhphToledo HospitalComment on above:Performed By: #### CDP, CP, LIP, TROPI, LIPRF, GLYHGB #### [address] [address] Human Resources Benefits Specialist: Bladimir Mcmanus (Bld)7.439 [pH]High7.320-7.420T[facility]edo HospitalComment on above:Performed By: #### CDP, CP, LIP, TROPI, LIPRF, GLYHGB #### [address] [address] Human Resources Benefits Specialist: BLADIMIR Mcmanusositive Base Excess4.2 mmol/LHigh0.0-2.0T[facility]edo HospitalComment on above:Performed By: #### CDP, CP, LIP, TROPI, LIPRF, GLYHGB #### [address] [address] Human Resources Benefits Specialist: Lalita Mcmanus TestNOT REPORTEDNormalToledo HospitalComment on above:Performed By: #### CDP, CP, LIP, TROPI, LIPRF, GLYHGB #### [address] [address] Human Resources Benefits Specialist: LIZZY McmanusethemoglobinNOT REPORTEDNormal0.0-1.5T[facility]edo HospitalComment on above:Performed By: #### CDP, CP, LIP, TROPI, LIPRF, GLYHGB #### [address] [address] Human Resources Benefits Specialist: LIZZY McmanusodeNOT REPORTEDNormalToledo HospitalComment on above:Performed By: #### CDP, CP, LIP, TROPI, LIPRF, GLYHGB #### [address] [address] Human Resources Benefits Specialist: Brandon Anaya MDNegative Base ExcessNOT REPORTEDNormal0.0-2.0 [facility] HospitalComment on above:Performed By: #### CDP, CP, LIP, TROPI, LIPRF, GLYHGB #### [facility] [address] [place] [address] Human Resources Benefits Specialist: Brandon Anaya MDNotification TimeNOT REPORTEDNormalMercy Sonoma Valley HospitalComment on above:Performed By: #### CDP, CP, LIP, TROPI, LIPRF, GLYHGB #### [facility] [address] [place] [address] Human Resources Benefits Specialist: Brandon Anaya MDNotification:NOT REPORTEDNormalMercy Sonoma Valley HospitalComment on above:Performed By: #### CDP, CP, LIP, TROPI, LIPRF, GLYHGB #### [facility] [address] [place] [address] Human Resources Benefits Specialist: Brandon Anaya MDO2 Device/Flow/%NOT REPORTEDNormalMercy Sonoma Valley HospitalComment on above:Performed By: #### CDP, CP, LIP, TROPI, LIPRF, GLYHGB #### [facility] [address] [place] [address] Human Resources Benefits Specialist: Brandon Anaya MDOxyhemoglobinNOT FGAGWWWTHepiwd00.0-98.0[facility] Valley HospitalComment on above:Performed By: #### CDP, CP, LIP, TROPI, LIPRF, GLYHGB #### [facility] [facility] [address] [place] [address] 23004 Human Resources Benefits Specialist: BLADIMIR Mcmanusco2 Adj'd for Temp.NOT ARYRBKLDPhdjjj43-40Opgsi Sonoma Valley HospitalComment on above:Performed By: #### CDP, CP, LIP, TROPI, LIPRF, GLYHGB #### [facility] [address] [place] [address] 80023 Human Resources Benefits Specialist: BLADIMIR McmanusEEP/CPAPNOT REPORTEDNormalMercy Sonoma Valley HospitalComment on above:Performed By: #### CDP, CP, LIP, TROPI, LIPRF, GLYHGB #### [facility] [address] [place] [address] Human Resources Benefits Specialist: Bladimir Mcmanus Adjst'd for Temp.NOT REPORTEDNormal 7.320-7.420Toledo HospitalComment on above:Performed By: #### CDP, CP, LIP, TROPI, LIPRF, GLYHGB #### [facility] [address] [place] [address] 17475 Human Resources Benefits Specialist: Bladimir Mcmanus Adj'd for Temp.NOT KDVBCNWXBimkaz33-73MrxdbToledo HospitalComment on above:Performed By: #### CDP, CP, LIP, TROPI, LIPRF, GLYHGB #### [facility] [address] [place] [address] 29036 Human Resources Benefits Specialist: MARIO McmanusSONIA REPORTEDNormalToledo HospitalComment on above:Performed By: #### CDP, CP, LIP, TROPI, LIPRF, GLYHGB #### [facility] [address] [place] [address] 40100 Human Resources Benefits Specialist: MDPt. [place] PositionNOT REPORTEDrmalToledo HospitalComment on above:Performed By: #### CDP, CP, LIP, TROPI, LIPRF, GLYHGB #### [facility] [address] [place] [address] 23359 Human Resources Benefits Specialist: Shannan Mcmanus RateNOT REPORTEDNormalToledo HospitalComment on above:Performed By: #### CDP, CP, LIP, TROPI, LIPRF, GLYHGB #### [facility] [address] [place] [address] 94314 Human Resources Benefits Specialist: Cooper Mcmanus DrawnNOT REPORTEDNormalToledo HospitalComment on above:Performed By: #### CDP, CP, LIP, TROPI, LIPRF, GLYHGB #### [facility] [address] [place] [address] Human Resources Benefits Specialist: Perico Mcmanus for RespiratoryNOT REPORTEDNormalToledo HospitalComment on above:Performed By: #### CDP, CP, LIP, TROPI, LIPRF, GLYHGB #### [facility] [address] [place] [address] 72497 Human Resources Benefits Specialist: Orlin Mcmanus HbNOT GHFCZXROOxvobe89.0-16.0MerGlendale Memorial Hospital and Health CenterComment on above:Performed By: #### CDP, CP, LIP, TROPI, LIPRF, GLYHGB #### [facility] [address] [place] [address] 26828 Human Resources Benefits Specialist: Orlin Mcmanus RateNOT REPORTEDNormalMerGlendale Memorial Hospital and Health CenterComment on above:Performed By: #### CDP, CP, LIP, TROPI, LIPRF, GLYHGB #### [facility] [address] [place] [address] 79605 Human Resources Benefits Specialist: Brandon Anaya MDVTSONIA REPORTEDNormalToledo HospitalComment on above:Performed By: #### CDP, CP, LIP, TROPI, LIPRF, GLYHGB #### [facility] [address] [place] [address] 32813 Human Resources Benefits Specialist: Kd Mcmanusosteroneon [phone]:NOT REPORTED NormalToledo HospitalComment on above:Performed By: #### CDP, CP, LIP, TROPI, LIPRF, GLYHGB #### [facility] [address] [place] [address] 16455 Human Resources Benefits Specialist: Josh Mcmanus Metab w/rfx MGon [id number] [Moles/Vol]3.3 mmol/LLow3.7-5.3[facility]oma Valley HospitalComment on above: Performed By: #### CDP, CP, LIP, TROPI, LIPRF, GLYHGB #### [facility] [address] [place] [address] 46258 Human Resources Benefits Specialist: Brandon Anaya MD(cont.)[facility] Comment on above:Result Comment: Average GFR for 70 or more years old: 75 mL/min/1.73sq m Chronic Kidney Disease: <60 mL/min/1.73sq m Kidney failure: <15 mL/min/1.73sq m eGFR calculated using average adult body mass. Additional eGFR calculator available at: http://www.Orderlord.Corpora/multiple_crcl_2012.htmPerformed By: #### CDP, CP, LIP, TROPI, LIPRF, GLYHGB #### [facility] [address] [place] [address] 85379 Human Resources Benefits Specialist: Brandon Anaya MDAnion gap [Moles/Vol]12 mmol/LNormal9-17Toledo HospitalComment on above:Performed By: #### CDP, CP, LIP, TROPI, LIPRF, GLYHGB #### [facility] [address] [place] [address] 22457 Human Resources Benefits Specialist: Brandon Anaya MDCalcium [Mass/Vol]8.6 mg/dLNormal8.6-10.4Toledo HospitalComment on above:Performed By: #### CDP, CP, LIP, TROPI, LIPRF, GLYHGB #### [facility] [address] [place] [address] 53537 Human Resources Benefits Specialist: Brandon Anaya MDChloride [Moles/Vol]94 mmol/DQmn70-588WwhokToledo HospitalComment on above:Performed By: #### CDP, CP, LIP, TROPI, LIPRF, GLYHGB #### [employer] [address] [place] [address] 79791 Human Resources Benefits Specialist: Brandon Anaya MDCO2 [Moles/Vol]26 mmol/SSxnywf01-31AlgpaToledo HospitalComment on above:Performed By: #### CDP, CP, LIP, TROPI, LIPRF, GLYHGB #### [facility] [address] [place] [address] Human Resources Benefits Specialist: NEHAL Mcmanusreatinine [Mass/Vol]0.46 mg/dLLow0.50-0.90Toledo HospitalComment on above:Performed By: #### CDP, CP, LIP, TROPI, LIPRF, GLYHGB #### [facility] [address] [place] [address] Human Resources Benefits Specialist: Brandon Anaya MDGFR, Amer>60Normal>60Toledo HospitalComment on above:Performed By: #### CDP, CP, LIP, TROPI, LIPRF, GLYHGB #### [place] [address] Human Resources Benefits Specialist: CAROLYN Mcmanus,non Amer>60Normal>60Toledo HospitalComment on above:Performed By: #### CDP, CP, LIP, TROPI, LIPRF, GLYHGB #### [facility] [address] [place] [address] Human Resources Benefits Specialist: Brandon Anaya MDGlucose [Mass/Vol]136 mg/vILxln26-57TvetdUCSF Benioff Children's Hospital OaklandComment on above:Performed By: #### CDP, CP, LIP, TROPI, LIPRF, GLYHGB #### [facility] [address] [place] [address] Human Resources Benefits Specialist: FABIANA Mcmanusodium [Moles/Vol]132 mmol/MVvn664-181VcogdToledo HospitalComment on above:Performed By: #### CDP, CP, LIP, TROPI, LIPRF, GLYHGB #### [facility] [address] [place] [address] 21623 Human Resources Benefits Specialist: Brandon Anaya MDUrea nitrogen [Mass/Vol]16 mg/dLNormal8-23Toledo HospitalComment on above:Performed By: #### CDP, CP, LIP, TROPI, LIPRF, GLYHGB #### [facility] [address] [place] [address] Human Resources Benefits Specialist: Brandon Anaya MDBUN/CRE RatioNOT REPORTEDNormal9-20T[facility]edo HospitalComment on above:Performed By: #### CDP, CP, LIP, TROPI, LIPRF, GLYHGB #### [facility] [address] [place], [place] [phone] Human Resources Benefits Specialist: FABIANA Mcmanustaging:NOT REPORTEDNormalToledo HospitalComment on above:Performed By: #### CDP, CP, LIP, TROPI, LIPRF, GLYHGB #### [facility] [address] [place], [place] [phone] Human Resources Benefits Specialist: Josh Mcmanus Metabolic Panel w/ Reflex to MGon [id number] gap [Moles/Vol]12 mmol/L9 - 17 mmol/LMKettering Health Main Campus, KYBun/Cre RatioNOT REPORTEDNewark Hospital, KYCalcium [Mass/Vol]8.6 mg/dL8.6 - 10.4 mg/dLNewark Hospital, KYChloride [Moles/Vol]94 mmol/LLow98 - 107 mmol/LMBlanchard [facility] [place], KYCO2 [Moles/Vol]26 mmol/L20 - 31 mmol/LMohiohealth doctors hospital Health- [place], [place] Creatinine [Mass/Vol]0.46 mg/dLLow0.5 - 0.9 mg/dLNewark Hospital, KYGFR >60>60 mL/minNewark Hospital, KYGFR Non->60>60 mL/min [facility], KYGFR/1.73 sq M predicted among non-blacks MDRD (S/P/Bld) [Vol rate/Area][facility], KYComment on above:Average GFR for 70 or more years old: 75 mL/min/1.73sq m Chronic Kidney Disease: <60 mL/min/1.73sq m Kidney failure: <15 mL/min/1.73sq m eGFR calculated using average adult body mass. Additional eGFR calculator available at: http://www.Clutter/multiple_crcl_2012.htm GFR/1.73 sq M predicted among non-blacks MDRD (S/P/Bld) [Vol rate/Area]NOT REPORTEDNewark Hospital, WYGlucose [Mass/Vol]136 mg/zYUuei70 - 99 mg/dLNewark Hospital, KYInterpretation and review of laboratory resultsAbnormalNewark Hospital, KYPotassium [Moles/Vol]3.3 mmol/LLow3.7 - 5.3 mmol/LMKettering Health Main Campus, KYSodium [Moles/Vol]132 mmol/ACwt356 - 144 mmol/LMBlanchard Valley [facility] [place], KYUrea nitrogen [Mass/Vol]16 mg/dL8 - 23 mg/dLNewark Hospital, WYCBC auto differential on [id number] (Bld) [#/Vol]0.04 10*3/uLNewark Hospital, [place] Basophils/100 WBC (Bld)0 %0 - 2 %[facility], WYDifferential TypeNOT REPORTEDNewark Hospital, WYEosinophils (Bld) [#/Vol]10*3/uLNewark Hospital, [place] Eosinophils/100 WBC (Bld)0 %Low1 - 4 %[facility], WYErythrocyte distribution width (RBC) [Ratio]14.7 %High11.8 - 14.4 %[facility], [place] Hematocrit (Bld) [Volume fraction]40.5 %36.3 - 47.1 %[facility]- [place], [place] Hemoglobin (Bld) [Mass/Vol]12.7 g/dL11.9 - 15.1 g/dLNewark Hospital, WYImmature granulocytes (Bld) [#/Vol]0.11 10*3/uLPomerene Hospital- [place], KYImmature granulocytes (Bld) [#/Vol]1 %Mkva2TwdafNewark Hospital, KYInterpretation and review of laboratory resultsAbnormalNewark Hospital, WYLymphocytes (Bld) [#/Vol]1.50 10*3/[facility], KYLymphocytes/100 WBC (Bld)12 %Low24 - 43 %[facility], WYMCH (RBC) [Entitic mass]29.4 pg25.2 - 33.5 pgNewark Hospital, [place] MCHC (RBC) [Mass/Vol]31.4 g/dL28.4 - 34.8 g/dLNewark Hospital, [facility] (RBC) [Entitic vol]93.8 fL82.6 - 102.9 fLNewark Hospital, WYMonocytes (Bld) [#/Vol] 0.87 10*3/uLNewark Hospital, KYMonocytes/100 WBC (Bld)7 %3 - 12 %[facility], WYPlatelet mean volume (Bld) [Entitic vol]10.7 fL8.1 - 13.5 fLNewark Hospital, WYPlatelets (Bld) [#/Vol]196 10*3/uLNewark Hospital, WYPlatelets (Bld) [#/Vol]NOT REPORTEDPro[facility] (Bld) [#/Vol]4.32 10*6/uL3.95 - 5.11 m/[facility], WYRB morphology finding Nom (Bld)ANISOCYTOSIS PRESENT [facility], WYSegmented neutrophils/100 WBC (Bld)79 %High36 - 65 %[facility], WYSegs Absolute9.64HighNewark Hospital, WYWBC (Bld) [#/Vol]12.2 10*3/uLParma Community General Hospital, WYWBC (Bld) [#/Vol]0.0 10*3/uL0.0 per 100 WBCNewark Hospital, WYWBC MorphologyNOT REPORTEDNewark Hospital, [facility] with Diffon [id number]. Basophil0.04 k/uLNormal0.00-0.20[facility] Comment on above:Performed By: #### CDP, CP, LIP, TROPI, LIPRF, GLYHGB #### [facility] [address] [place] [address] 32042 Human Resources Benefits Specialist: MDAbs. MariettaImm.Granulocyte0.11 k/uLNormal0.00-0.30T[facility]edo HospitalComment on above:Performed By: #### CDP, CP, LIP, TROPI, LIPRF, GLYHGB #### [facility] [address] [place] [address] 25839 Human Resources Benefits Specialist: Marie Mcmanus.Neutrophil (Seg)9.64 k/uLHigh1.50-8.10T[facility]edo HospitalComment on above:Performed By: #### CDP, CP, LIP, TROPI, LIPRF, GLYHGB #### [address] [address] Human Resources Benefits Specialist: Brandon Anaya MDBasophils/100 WBC (Bld)0 %Normal0-2MUCSF [facility]io[facility] Children's Hospital OaklandComment on above:Performed By: #### CDP, CP, LIP, TROPI, LIPRF, GLYHGB #### [facility] [address] [place] [address] 34826 Human Resources Benefits Specialist: MAU Mcmanusosinophilmichelle (Bld) [#/Vol]10*3/uLNormal0.00-0.44 [facility] HospitalComment on above:Performed By: #### CDP, CP, LIP, TROPI, LIPRF, GLYHGB #### [facility] [address] [place] [address] 58055 Human Resources Benefits Specialist: MAU Mcmanusosinophils/100 WBC (Bld)0 %Low1-4T[facility]edo HospitalComment on above:Performed By: #### CDP, CP, LIP, TROPI, LIPRF, GLYHGB #### [facility] [address] [place] [address] 66972 Human Resources Benefits Specialist: Brandon Anaya MDErythrocyte distribution width (RBC) [Ratio]14.7 %High11.8-14.4T[facility]edo HospitalComment on above:Performed By: #### CDP, CP, LIP, TROPI, LIPRF, GLYHGB #### [employer] [address] [place] [address] 92663 Human Resources Benefits Specialist: Brandon Anaya MDHematocrit (Bld) [Volume fraction]40.5 %Normal 36.3-47.1MUCSF [facility]io[facility] Hospital OaklandComment on above:Performed By: #### CDP, CP, LIP, TROPI, LIPRF, GLYHGB #### [facility] [address] [place] [address] Human Resources Benefits Specialist: Brandon Anaya MDHemoglobin (Bld) [Mass/Vol]12.7 g/dLNormal 11.9-15.1MUCSF [facility] Hospital OaklandComment on above:Performed By: #### CDP, CP, LIP, TROPI, LIPRF, GLYHGB #### [employer] [address] [place] [address] Human Resources Benefits Specialist: Brandon Anaya MDImmature granulocytes (Bld) [#/Vol]1 %Axfj3UzajhToledo HospitalComment on above:Performed By: #### CDP, CP, LIP, TROPI, LIPRF, GLYHGB #### [employer] [address] [place] [address] Human Resources Benefits Specialist: Brandon Anaya MDLymphocytes (Bld) [#/Vol]1.50 10*3/uLNormal 1.10-3.70T[place]edo HospitalComment on above:Performed By: #### CDP, CP, LIP, TROPI, LIPRF, GLYHGB #### [employer] [address] [place] [address] 74164 Human Resources Benefits Specialist: Kortney Mcmanusmphocytes/100 WBC (Bld)12 %Fxx13-80MseiwToledo HospitalComment on above:Performed By: #### CDP, CP, LIP, TROPI, LIPRF, GLYHGB #### [facility] [address] [place] [address] 59095 Human Resources Benefits Specialist: LIZZY McmanusCH (RBC) [Entitic mass]29.4 hzHotgbd68.2-33.5 [facility] HospitalComment on above:Performed By: #### CDP, CP, LIP, TROPI, LIPRF, GLYHGB #### [facility] [address] [place] [address] Human Resources Benefits Specialist: LIZZY McmanusCHC (RBC) [Mass/Vol]31.4 g/nIKhdmop47.4-34.8 [facility] HospitalComment on above:Performed By: #### CDP, CP, LIP, TROPI, LIPRF, GLYHGB #### [facility] [address] [place] [address] Human Resources Benefits Specialist: LIZZY McmanusCV (RBC) [Entitic vol]93.8 pRMsxrlg22.6-102.9 [facility] HospitalComment on above:Performed By: #### CDP, CP, LIP, TROPI, LIPRF, GLYHGB #### [facility] [address] [place] [address] Human Resources Benefits Specialist: LIZZY Mcmanusonocytes (Bld) [#/Vol]0.87 10*3/uLNormal 0.10-1.20T[facility]edo HospitalComment on above:Performed By: #### CDP, CP, LIP, TROPI, LIPRF, GLYHGB #### [facility] [address] [place] [address] 67548 Human Resources Benefits Specialist: LIZZY Mcmanusonocytes/100 WBC (Bld)7 %Normal3-12T[facility]edo HospitalComment on above:Performed By: #### CDP, CP, LIP, TROPI, LIPRF, GLYHGB #### [facility] [address] [place] [address] 05731 Human Resources Benefits Specialist: Shakir Mcmanus (Seg)79 %Ivnm27-04CbtfgToledo HospitalComment on above:Performed By: #### CDP, CP, LIP, TROPI, LIPRF, GLYHGB #### [facility] [address] [place] [address] 75075 Human Resources Benefits Specialist: JOSIE Mcmanus Automated0.0 per 100 WBCNormal0.0Toledo HospitalComment on above:Performed By: #### CDP, CP, LIP, TROPI, LIPRF, GLYHGB #### [facility] [address] [place] [address] 13259 Human Resources Benefits Specialist: Nadeem Mcmanus mean volume (Bld) [Entitic vol]10.7 fL Normal8.1-13.5T[facility]edo HospitalComment on above:Performed By: #### CDP, CP, LIP, TROPI, LIPRF, GLYHGB #### [facility] [address] [place] [address] 22275 Human Resources Benefits Specialist: Bon Mcmanus (Bld) [#/Vol]196 10*3/wZMebnqr897-706 [facility] HospitalComment on above:Performed By: #### CDP, CP, LIP, TROPI, LIPRF, GLYHGB #### [facility] [address] [place] [address] 35481 Human Resources Benefits Specialist: DREW McmanusBC (Bld) [#/Vol]4.32 10*6/uLNormal3.95-5.11 [facility] HospitalComment on above:Performed By: #### CDP, CP, LIP, TROPI, LIPRF, GLYHGB #### [facility] [address] [place] [address] 89722 Human Resources Benefits Specialist: RICHA Mcmanus morphology finding Nom (Bld)ANISOCYTOSIS PRESENTSamaritan North Health CenterComment on above:Performed By: #### CDP, CP, LIP, TROPI, LIPRF, GLYHGB #### [facility] [address] [place] [address] 66560 Human Resources Benefits Specialist: LUCIAN Mcmanus (Bld) [#/Vol]12.2 10*3/uLHigh3.5-11.3[facility] HospitalComment on above:Performed By: #### CDP, CP, LIP, TROPI, LIPRF, GLYHGB #### [facility] [address] [place] [address] 77467 Human Resources Benefits Specialist: Gustabo Mcmanus PerformedNOT REPORTEDSamaritan North Health CenterComment on above:Performed By: #### CDP, CP, LIP, TROPI, LIPRF, GLYHGB #### [employer] [address] [place] [address] 79848 Human Resources Benefits Specialist: BLADIMIR Mcmanuslatelets (Bld) [#/Vol]NOT REPORTEDSamaritan North Health CenterComment on above:Performed By: #### CDP, CP, LIP, TROPI, LIPRF, GLYHGB #### [employer] [address] [place] [address] 04803 Human Resources Benefits Specialist: LUCIAN Mcmanus MorphologyNOT REPORTEDSamaritan North Health CenterComment on above:Performed By: #### CDP, CP, LIP, TROPI, LIPRF, GLYHGB #### [facility] [address] [place] [address] 77960 Human Resources Benefits Specialist: Yane Mcmanusgnesiumon 20-03-6715Dnykasout [Mass/Vol]2.2 mg/dLNormal1.6-2.6Mer[facility] HospitalComment on above:Performed By: #### CDP, CP, LIP, TROPI, LIPRF, GLYHGB #### [facility] [address] [phone] Human Resources Benefits Specialist: Brandon Anaya, MDMagnesium [Mass/Vol]2.2 mg/dL1.6 - 2.6 mg/dL [facility], WYPOC Glucose Fingerstickon 16-50-3677Iqygbmv [Mass/Vol]117 mg/yTFxwr87 - 105 mg/dLNewark Hospital, KYInterpretation and review of laboratory resultsAbnormMagruder Memorial Hospital, KYGlucose [Mass/Vol]115 mg/lJWtbm19 - 105 mg/dLNewark Hospital, KYInterpretation and review of laboratory results AbnormalNewark Hospital, KYGlucose [Mass/Vol]123 mg/oEOvzi71 - 105 mg/dLNewark Hospital, KYInterpretation and review of laboratory resultsAbnoCleveland Clinic Eucl[facility], KYGlucose [Mass/Vol]117 mg/qAZmil36 - 105 mg/dLNewark Hospital, [place] Interpretation and review of laboratory resultsAbnoCleveland Clinic Euclid Hospital, [place] URINALYSIS WITH MICROSCOPICon 05-50-8060Ernofahet, UANOT REPORTEDNoneMercy Health- [place], KYBacteria, UANOT REPORTEDNoneMemain campus medical center Health- [place], KYBilirubin Urine NegativeNEGATIVEBarnesville Hospital Health- [place], KYCasts UA0 TO 2 HYALINE Reference range defined for non-centrifuged specimen.[facility], KYColor, UAYELLOWYELLOW [facility], KYCrystals, UANOT REPORTEDNone /HPFMercy Health- [place], [place] Epithelial Cells UA2 TO 5[facility]- [place], KYGlucose, UrNegativeNEGATIVEBarn[facility] Hospital Health- [place], KYInterpretation and review of laboratory resultsAbnormalBarnesville Hospital Health- [place], KYKetones Ql (U)SMALLAbnormalNEGATIVEMer Health- [place], KYLeukocyte esterase Test strip Ql (U)NegativeNEGATIVEMercy Health- [place], KYMucus, UANOT REPORTEDNoneMercy Health- [place], KYNitrite, UrineNegativeNEGATIVEMercy Health- [place], KYOther Observations UANOT REPORTEDNOT REQ.[facility]- [place], KYpH, UA8.5High [facility], WYProtein (U) [Mass/Vol]NegativeNEGATIVENewark Hospital, [place] RBC (U) [#/Vol]TOO NUMEROUS TO COUNTNewark Hospital, WYComment on above: Reference range defined for non-centrifuged specimen.Renal Epithelial, UANOT REPORTED0 /HPFNewark Hospital, WYSpecific [place], UA1.011[facility], [place] Trichomonas, UANOT REPORTEDNoneMeCleveland Clinic [facility], KYTurbidity UATURBIDAbnormal CLEARNewark Hospital, WYUrine HgbNegativeNEGATIVENewark Hospital, [place] Urobilinogen, UrineNormalNormalNewark Hospital, KYWBC, UA0 TO 2MercAdventHealth Wauchula, KYYeast, UANOT REPORTEDNon[facility], [place]-[facility], [place] Urinalysis w/ Microon 10-12-2019-----[facility] Comment on above:Performed By: #### CDP, CP, LIP, TROPI, LIPRF, GLYHGB #### [facility] [address] [place] [address] Human Resources Benefits Specialist: Rafi Mcmanustoacetic Acid,UrSMALLAbnoKindred Hospital LimaComment on above:Performed By: #### CDP, CP, LIP, TROPI, LIPRF, GLYHGB #### [employer] [address] [place] [address] 66844 Human Resources Benefits Specialist: Sourav Mcmanusirubin, SemiQt,UrNegativeNormalNEGToledo HospitalComment on above:Performed By: #### CDP, CP, LIP, TROPI, LIPRF, GLYHGB #### [employer] [address] [place] [address] Human Resources Benefits Specialist: Maria Elena Mcmanus LM.LPF (Urine sed) [#/Area]0 TO 2 HYALINE Normal0-8T[facility]edo HospitalComment on above:Result Comment: Reference range defined for non-centrifuged specimen.Performed By: #### CDP, CP, LIP, TROPI, LIPRF, GLYHGB #### [facility] [address] [place] [address] 15239 Human Resources Benefits Specialist: NEHAL Mcmanusolor (U)YELLOWNormalYELMerGlendale Memorial Hospital and Health CenterComment on above:Performed By: #### CDP, CP, LIP, TROPI, LIPRF, GLYHGB #### [facility] [address] [place] [address] 28661 Human Resources Benefits Specialist: Brandon Anaya MDEpithelial cells LM.HPF (Urine sed) [#/Area]2 TO 4Ypmrfa3-8TvogxGlendale Memorial Hospital and Health CenterComment on above:Performed By: #### CDP, CP, LIP, TROPI, LIPRF, GLYHGB #### [address] [address] Human Resources Benefits Specialist: Brandon Anaya MDGlucose Ql (U)NegativeNormalNEGToledo HospitalComment on above:Performed By: #### CDP, CP, LIP, TROPI, LIPRF, GLYHGB #### [address] [address] Human Resources Benefits Specialist: Brandon Anaya MDHemoglobin, UrNegativeNormalNEGToledo HospitalComment on above:Performed By: #### CDP, CP, LIP, TROPI, LIPRF, GLYHGB #### [address] [address] Human Resources Benefits Specialist: Brandon Anaya MDLeukocyte esterase Test strip Ql (U)Negative NormalNEGToledo HospitalComment on above:Performed By: #### CDP, CP, LIP, TROPI, LIPRF, GLYHGB #### [facility] [address] [place] [address] 18437 Human Resources Benefits Specialist: Brandon Anaya MDNitrite,UrNegativeNormalNEGToledo HospitalComment on above:Performed By: #### CDP, CP, LIP, TROPI, LIPRF, GLYHGB #### [facility] [address] [place] [address] 37145 Human Resources Benefits Specialist: Bladimir Mcmanus (U)8.5 [pH]High5.0-8.0T[facility]edo HospitalComment on above:Performed By: #### CDP, CP, LIP, TROPI, LIPRF, GLYHGB #### [facility] [address] [place] [address] 85799 Human Resources Benefits Specialist: BLADIMIR Mcmanusbayonne medical center Ql (U)NegativeNormalNEGToledo HospitalComment on above:Performed By: #### CDP, CP, LIP, TROPI, LIPRF, GLYHGB #### [facility] [address] [place] [address] 34538 Human Resources Benefits Specialist: Brandon Anaya [facility] MEDICAL CENTERBC (U) [#/Vol]TOO NUMEROUS TO COUNTNormal0-4 [facility] HospitalComment on above:Result Comment: Reference range defined for non-centrifuged specimen.Performed By: #### CDP, CP, LIP, TROPI, LIPRF, GLYHGB #### [facility] [address] [place] [address] 82767 Human Resources Benefits Specialist: FABIANA Mcmanuspecific gravity (U) [Rel density]1.011Normal 1.005-1.030T[facility]edo HospitalComment on above:Performed By: #### CDP, CP, LIP, TROPI, LIPRF, GLYHGB #### [facility] [address] [place] [address] 39898 Human Resources Benefits Specialist: Tha McmanusormalCLEARMUCSF Benioff Children's Hospital OaklandComment on above:Performed By: #### CDP, CP, LIP, TROPI, LIPRF, GLYHGB #### [facility] [address] [place] [address] 9[address]04 Human Resources Benefits Specialist: Brandon Madoff, MDUrobilinogen,UrNormalNormalNORMToledo HospitalComment on above:Performed By: #### CDP, CP, LIP, TROPI, LIPRF, GLYHGB #### [facility] [address] [place] [address] 9[address]17 Human Resources Benefits Specialist: Brandon Anaya MDWBC (U) [#/Vol]0 TO 6Wfwmse9-6KhdwrGlendale Memorial Hospital and Health CenterComment on above:Performed By: #### CDP, CP, LIP, TROPI, LIPRF, GLYHGB #### [facility] [address] [place] [address] Human Resources Benefits Specialist: Iwona Mcmanus sediment LM Ql (Urine sed)NOT REPORTED NormalNONEMeLos Alamitos Medical CenterComment on above:Performed By: #### CDP, CP, LIP, TROPI, LIPRF, GLYHGB #### [facility] [address] [place] [address] Human Resources Benefits Specialist: Tong Mcmanuseria LM.HPF (Urine sed) [#/Area]NOT REPORTED NormalNONEMeLos Alamitos Medical CenterComment on above:Performed By: #### CDP, CP, LIP, TROPI, LIPRF, GLYHGB #### [facility] [address] [place] [address] Human Resources Benefits Specialist: Majnula Mcmanusstdamien LM Nom (Urine sed)NOT REPORTEDNormal NONEToledo HospitalComment on above:Performed By: #### CDP, CP, LIP, TROPI, LIPRF, GLYHGB #### [facility] [address] [place] [address] Human Resources Benefits Specialist: Brandon Anaya MDEpithelial, RenalNOT OVZSBNPQNolovi0RnfosToledo HospitalComment on above:Performed By: #### CDP, CP, LIP, TROPI, LIPRF, GLYHGB #### [facility] [address] [place] [address] Human Resources Benefits Specialist: Raquel Mcmanusus StrandsNOT REPORTEDNormalNONEMeLos Alamitos Medical CenterComment on above:Performed By: #### CDP, CP, LIP, TROPI, LIPRF, GLYHGB #### [facility] [address] [place] [address] Human Resources Benefits Specialist: Montana Mcmanus ObservationsNOT REPORTEDNormalNREQToledo HospitalComment on above:Performed By: #### CDP, CP, LIP, TROPI, LIPRF, GLYHGB #### [facility] [address] [place] [address] Human Resources Benefits Specialist: Grant McmanushomonasNOT REPORTEDNormalNONGreene Memorial HospitalComment on above:Performed By: #### CDP, CP, LIP, TROPI, LIPRF, GLYHGB #### [facility] [address] [place] [address] Human Resources Benefits Specialist: Donna Mcmanus LM Ql (Urine sed)NOT REPORTEDNormalHONORHEALTH DEER VALLEY MEDICAL CENTERE Toledo HospitalComment on above:Performed By: #### CDP, CP, LIP, TROPI, LIPRF, GLYHGB #### [facility] [address] [place] [address] Human Resources Benefits Specialist: CHRISTINE Mcmanus RENAL ARTERIAL DUPLEX COMPLETEon 10-12-2019 [facility] Vascular Renal Procedure Patient Name ALEX Date of Study 10/12/2019 SHAYY Date of 1945 Gender Female Age 74 year(s) Race Room Number 2015 Corporate ID [id number] # Patient Acct [id number] # MR # [id number] [employer] Celena Juarez, JACEK, RDMS Interpreting Jamison Galo [...] + ++-----+----+----+----++---+----+----+----+ !Location !!PSV !EDV !RI !RAR !!PSV!EDV!RI !RAR ! + ++-----+----+----+----++---+----+----+----+ !Ostial Renal !!332 !58.5!0.82!4.83!!199!39.3!0.8 !2.89! + ++-----+----+----+----++---+----+----+----+ !Prox Renal !!200 !23.1!0.88!2.91!!173!35.6!0.79!2.51! + ++-----+----+----+----++---+----+----+----+ !Mid Renal !!179 !35.1!0.8 !2.6 !!166!30.7!0.82!2.41! + ++-----+----+----+----++---+----+----+----+ !Dist Renal !!116 !22.4!0.81!1.69!!111!24.6!0.78!1.61! + ++-----+----+----+----++---+----+----+----+ Right Miscellaneous Measurements - The average kidney length is 10.75 cm. Left Miscellaneous Measurements - The average kidney length is 10.75 cm.[facility]- VTRadha Mhpn Incoming Cardio Results From [facility] - 10/12/2019 7:54 PM EDT [facility] Vascular Renal Procedure Patient Name ALEX Date of Study 10/12/2019 SHAYY Date of 1945 Gender Female Age 74 year(s) Race Room Number 2015 Corporate ID [id number] # Patient Acct [id number] # MR # [id number] [employer] Celena Juarez RVT, RDMS Interpreting Jamison Galo [...] - The average kidney length is 10.75 cm.[facility]- [place], [place]XR CHEST PORTABLEon [id number] CHEST PORTABLEEXAMINATION: ONE XRAY VIEW OF THE [...] by: Argentina Guzmán MD Signed by: Argentina Guzámn MD 10/11/19 Final resultNormalToledo HospitalBasic Metab w/rfx MGon 10-11-2019(cont.)NormalToledo HospitalComment on above:Result Comment: Average GFR for 70 or more years old: 75 mL/min/1.73sq m Chronic Kidney Disease: <60 mL/min/1.73sq m Kidney failure: <15 mL/min/1.73sq m eGFR calculated using average adult body mass. Additional eGFR calculator available at: http://www.Orderlord.Corpora/multiple_crcl_2012.htmPerformed By: #### CDP, CP, LIP, TROPI, LIPRF, GLYHGB #### [facility] [address] [place] [address] Human Resources Benefits Specialist: James Mcmanus gap [Moles/Vol]15 mmol/LNormal9-Toledo HospitalComment on above:Performed By: #### CDP, CP, LIP, TROPI, LIPRF, GLYHGB #### [facility] [address] [place], [place] [id number] Human Resources Benefits Specialist: Brandon Madoff, MDCalcium [Mass/Vol]9.2 mg/dLNormal8.6-10.4Toledo HospitalComment on above:Performed By: #### CDP, CP, LIP, TROPI, LIPRF, GLYHGB #### [facility] [address] [place] [address] Human Resources Benefits Specialist: Brandon Anaya MDChloride [Moles/Vol]96 mmol/XHgg71-271XscgdToledo HospitalComment on above:Performed By: #### CDP, CP, LIP, TROPI, LIPRF, GLYHGB #### [facility] [address] [place] [address] Human Resources Benefits Specialist: Brandon Anaya MDCO2 [Moles/Vol]24 mmol/YNnqgnb24-34FghjtToledo HospitalComment on above:Performed By: #### CDP, CP, LIP, TROPI, LIPRF, GLYHGB #### [facility] [address] [place] [address] Human Resources Benefits Specialist: Brandon Anaya MDCreatinine [Mass/Vol]0.55 mg/dLNormal0.50-0.90 Toledo HospitalComment on above:Performed By: #### CDP, CP, LIP, TROPI, LIPRF, GLYHGB #### [facility] [address] [place] [address] Human Resources Benefits Specialist: CAROLYN Mcmanus, Amer>60Normal>60Toledo HospitalComment on above:Performed By: #### CDP, CP, LIP, TROPI, LIPRF, GLYHGB #### [facility] [address] [place] [address] Human Resources Benefits Specialist: CAROLYN Mcmanus,non Amer>60Normal>60Toledo HospitalComment on above:Performed By: #### CDP, CP, LIP, TROPI, LIPRF, GLYHGB #### [address] [address] Human Resources Benefits Specialist: Brandon Anaya MDGlucose [Mass/Vol]146 mg/aIAwwp76-99QfjccUCSF Benioff Children's Hospital OaklandComment on above:Performed By: #### CDP, CP, LIP, TROPI, LIPRF, GLYHGB #### [address] [address] Human Resources Benefits Specialist: BLADIMIR Mcmanusotassium [Moles/Vol]3.6 mmol/LLow3.7-5.3Msheltering arms hospitaly [facility]oma Valley HospitalComment on above:Performed By: #### CDP, CP, LIP, TROPI, LIPRF, GLYHGB #### [address] [address] Human Resources Benefits Specialist: FABIANA Mcmanusodium [Moles/Vol]135 mmol/JReiiaj486-679HnsjfToledo HospitalComment on above:Performed By: #### CDP, CP, LIP, TROPI, LIPRF, GLYHGB #### [address] [address] Human Resources Benefits Specialist: Brandon Anaya MDUrea nitrogen [Mass/Vol]13 mg/dLNormal8-23Toledo HospitalComment on above:Performed By: #### CDP, CP, LIP, TROPI, LIPRF, GLYHGB #### [address] [address] Human Resources Benefits Specialist: RADHA Mcmanus/CRE UlicesOT REPORTEDNormal9-20Toledo HospitalComment on above:Performed By: #### CDP, CP, LIP, TROPI, LIPRF, GLYHGB #### [address] [address] Human Resources Benefits Specialist: FABIANA Mcmanustaging:NOT REPORTEDNormalToledo HospitalComment on above:Performed By: #### CDP, CP, LIP, TROPI, LIPRF, GLYHGB #### [facility] [address] [place] [phone] Human Resources Benefits Specialist: Brandon Anaya MDBackus Hospital Metabolic Panel w/ Reflex to MGon [id number] gap [Moles/Vol]15 mmol/L9 - 17 mmol/LMKettering Health Main Campus, KYBun/Cre RatioNOT REPORTEDNewark Hospital, KYCalcium [Mass/Vol]9.2 mg/dL8.6 - 10.4 mg/dLNewark Hospital, KYChloride [Moles/Vol]96 mmol/LLow98 - 107 mmol/LMBlanchard [facility] [place], KYCO2 [Moles/Vol]24 mmol/L20 - 31 mmol/LMBlanchard Valley [facility] [place], [place] Creatinine [Mass/Vol]0.55 mg/dL0.5 - 0.9 mg/dLNewark Hospital, KYGFR >60>60 mL/minNewark Hospital, KYGFR Non->60>60 mL/min [facility], KYGFR/1.73 sq M predicted among non-blacks MDRD (S/P/Bld) [Vol rate/Area]NOT REPORTEDNewark Hospital, KYGFR/1.73 sq M predicted among non- blacks MDRD (S/P/Bld) [Vol rate/Area][facility], KYComment on above: Average GFR for 70 or more years old: 75 mL/min/1.73sq m Chronic Kidney Disease: <60 mL/min/1.73sq m Kidney failure: <15 mL/min/1.73sq m eGFR calculated using average adult body mass. Additional eGFR calculator available at: http://www.Orderlord.Corpora/multiple_crcl_2012.htm Glucose [Mass/Vol]146 mg/sBBzxd39 - 99 mg/dLNewark Hospital, KYInterpretation and review of laboratory resultsAbnormalNewark Hospital, KYPotassium [Moles/Vol]3.6 mmol/LLow3.7 - 5.3 mmol/LMBlanchard [facility] [place], KYSodium [Moles/Vol] 135 mmol/L135 - 144 mmol/LMercy Health- [place], KYUrea nitrogen [Mass/Vol]13 mg/dL8 - 23 mg/dLNewark Hospital, WYCBC auto differentialon [id number] (Bld) [#/Vol]0.03 10*3/[facility] [place], KYBasophils/100 WBC (Bld)0 %0 - 2 %[facility], KYDifferential TypeNOT REPORTEDNewark Hospital, KYEosinophils (Bld) [#/Vol]10*3/[facility] [place], KYEosinophils/100 WBC (Bld)0 %Low1 - 4 %[facility], KYErythrocyte distribution width (RBC) [Ratio]14.3 %11.8 - 14.4 % [facility], KYHematocrit (Bld) [Volume fraction]43.6 %36.3 - 47.1 %[facility], KYHemoglobin (Bld) [Mass/Vol]13.7 g/dL11.9 - 15.1 g/dLNewark Hospital, KYImmature granulocytes (Bld) [#/Vol]1 %Jvab7BvyprNewark Hospital, KYImmature granulocytes (Bld) [#/Vol]0.07 10*3/[facility], KYInterpretation and review of laboratory resultsAbnormMagruder Memorial Hospital, KYLymphocytes (Bld) [#/Vol]0.92 10*3/uLLouis Stokes [facility], KYLymphocytes/100 WBC (Bld)14 %Low24 - 43 %[facility], KYMCH (RBC) [Entitic mass]29.1 pg25.2 - 33.5 pgNewark Hospital, KYMCHC (RBC) [Mass/Vol]31.4 g/dL28.4 - 34.8 g/dLNewark Hospital, [place] MCV (RBC) [Entitic vol]92.6 fL82.6 - 102.9 fLNewark Hospital, KYMonocytes (Bld) [#/Vol]0.07 10*3/uLLouis Stokes [facility], KYMonocytes/100 WBC (Bld)1 %Low3 - 12 % [facility], KYPlatelet mean volume (Bld) [Entitic vol]10.6 fL8.1 - 13.5 fL [facility], WYPlatelets (Bld) [#/Vol]NOT REPORTEDNewark Hospital, W[place] Platelets (Bld) [#/Vol]196 10*3/uLNewark Hospital, WYRBC (Bld) [#/Vol]4.71 10*6/uL3.95 - 5.11 m/uLNewark Hospital, WYRBC morphology finding Nom (Bld)NOT REPORTEDNewark Hospital, WYSegmented neutrophils/100 WBC (Bld)84 %High36 - 65 % [facility], WYSegs Absolute5.67[facility], WYWBC (Bld) [#/Vol]0.0 10*3/uL0.0 per 100 WBCNewark Hospital, WYWBC (Bld) [#/Vol]6.8 10*3/uLNewark Hospital, WYWBC MorphologyNOT REPORTEDNewark Hospital, WYCB with Diffon [id number]. Basophil0.03 k/uLNormal0.00-0.20[facility] Comment on above:Performed By: #### CDP, CP, LIP, TROPI, LIPRF, GLYHGB #### [employer] [address] [place] [address] [phone] Human Resources Benefits Specialist: Marie Mcmanus.Imm.Granulocyte0.07 k/uLNormal0.00-0.30Toledo HospitalComment on above:Performed By: #### CDP, CP, LIP, TROPI, LIPRF, GLYHGB #### [employer] [address] [place] [address]73 Human Resources Benefits Specialist: Marie Mcmanus.Neutrophil (Seg)5.67 k/uLNormal1.50-8.10 [facility] HospitalComment on above:Performed By: #### CDP, CP, LIP, TROPI, LIPRF, GLYHGB #### [address] [address] Human Resources Benefits Specialist: Brandon Anaya MDBasophils/100 WBC (Bld)0 %Normal0-2MUCSF [facility] Hospital OaklandComment on above:Performed By: #### CDP, CP, LIP, TROPI, LIPRF, GLYHGB #### [address] [address] Human Resources Benefits Specialist: Brandon Anaya MDEosinophils (Bld) [#/Vol]10*3/uLNormal0.00-0.44 Tol[facility] HospitalComment on above:Performed By: #### CDP, CP, LIP, TROPI, LIPRF, GLYHGB #### [address] [address] Human Resources Benefits Specialist: Brandon Anaya MDEosinophils/100 WBC (Bld)0 %Low1-4Toledo HospitalComment on above:Performed By: #### CDP, CP, LIP, TROPI, LIPRF, GLYHGB #### [address] [address] Human Resources Benefits Specialist: Brandon Anaya MDErythrocyte distribution width (RBC) [Ratio]14.3 %Wtgjqt73.8-14.4Toledo HospitalComment on above:Performed By: #### CDP, CP, LIP, TROPI, LIPRF, GLYHGB #### [address] [address] Human Resources Benefits Specialist: Brandon Anaya MDHematocrit (Bld) [Volume fraction]43.6 %Normal 36.3-47.1MUCSF [facility]'s Hospital OaklandComment on above:Performed By: #### CDP, CP, LIP, TROPI, LIPRF, GLYHGB #### [address] [address] Human Resources Benefits Specialist: Brandon Anaya MDHemoglobin (Bld) [Mass/Vol]13.7 g/dLNormal 11.9-15.1MUCSF [facility] Hospital OaklandComment on above:Performed By: #### CDP, CP, LIP, TROPI, LIPRF, GLYHGB #### [address] [address] Human Resources Benefits Specialist: Brandon Anaya MDImmature granulocytes (Bld) [#/Vol]1 %Cbyi5QbjceToledo HospitalComment on above:Performed By: #### CDP, CP, LIP, TROPI, LIPRF, GLYHGB #### [place] [address] Human Resources Benefits Specialist: Brandon Anaya MDLymphocytes (Bld) [#/Vol]0.92 10*3/uLLow 1.10-3.70Toledo HospitalComment on above:Performed By: #### CDP, CP, LIP, TROPI, LIPRF, GLYHGB #### [place] [address] Human Resources Benefits Specialist: Kortney Mcmanusmphocytes/100 WBC (Bld)14 %Uyt32-18XlzliToledo HospitalComment on above:Performed By: #### CDP, CP, LIP, TROPI, LIPRF, GLYHGB #### [place] [address] Human Resources Benefits Specialist: LIZZY McmanusCH (RBC) [Entitic mass]29.1 dpDooqbt15.2-33.5 [facility] HospitalComment on above:Performed By: #### CDP, CP, LIP, TROPI, LIPRF, GLYHGB #### [address] [address] Human Resources Benefits Specialist: LIZZY McmanusCHC (RBC) [Mass/Vol]31.4 g/rBWyacpr94.4-34.8 [facility] HospitalComment on above:Performed By: #### CDP, CP, LIP, TROPI, LIPRF, GLYHGB #### [address] [address] Human Resources Benefits Specialist: LIZZY McmanusCV (RBC) [Entitic vol]92.6 zEAcqdeu02.6-102.9 [facility] HospitalComment on above:Performed By: #### CDP, CP, LIP, TROPI, LIPRF, GLYHGB #### [address] [address] Human Resources Benefits Specialist: LIZZY Mcmanusonocytes (Bld) [#/Vol]0.07 10*3/uLLow0.10-1.20 [facility] HospitalComment on above:Performed By: #### CDP, CP, LIP, TROPI, LIPRF, GLYHGB #### [address] [address] Human Resources Benefits Specialist: LIZZY Mcmanusonocytes/100 WBC (Bld)1 %Low3-12T[facility]edo HospitalComment on above:Performed By: #### CDP, CP, LIP, TROPI, LIPRF, GLYHGB #### [address] [address] Human Resources Benefits Specialist: Modesta Mcmanusophil (Seg)84 %Kcuw84-93SoztaToledo HospitalComment on above:Performed By: #### CDP, CP, LIP, TROPI, LIPRF, GLYHGB #### [address] [address] Human Resources Benefits Specialist: Brandon Anaya MDNRBC Automated0.0 per 100 WBCNormal0.0Toledo HospitalComment on above:Performed By: #### CDP, CP, LIP, TROPI, LIPRF, GLYHGB #### [facility] [address] [place] [address] Human Resources Benefits Specialist: Nadeem Mcmanus mean volume (Bld) [Entitic vol]10.6 fL Normal8.1-13.5Toledo HospitalComment on above:Performed By: #### CDP, CP, LIP, TROPI, LIPRF, GLYHGB #### [address] [address] Human Resources Benefits Specialist: Bon Mcmanus (Bld) [#/Vol]196 10*3/fTJbmwfq422-991 [facility] HospitalComment on above:Performed By: #### CDP, CP, LIP, TROPI, LIPRF, GLYHGB #### [address] [address] Human Resources Benefits Specialist: Brandon Anaya MDRBC (Bld) [#/Vol]4.71 10*6/uLNormal3.95-5.11 [facility] HospitalComment on above:Performed By: #### CDP, CP, LIP, TROPI, LIPRF, GLYHGB #### [address] [address] Human Resources Benefits Specialist: TAMMY McmanusBC (Bld) [#/Vol]6.8 10*3/uLNormal3.5-11.3MU[facility] Hospital OaklandComment on above:Performed By: #### CDP, CP, LIP, TROPI, LIPRF, GLYHGB #### [address] [address] Human Resources Benefits Specialist: Gustabo Mcmanus PerformedNOT REPORTEDNormalToledo HospitalComment on above:Performed By: #### CDP, CP, LIP, TROPI, LIPRF, GLYHGB #### [address] [address] Human Resources Benefits Specialist: Bon Mcmanus (Bld) [#/Vol]NOT REPORTEDNormalToledo HospitalComment on above:Performed By: #### CDP, CP, LIP, TROPI, LIPRF, GLYHGB #### [facility] [address] [place] [address] Human Resources Benefits Specialist: RICHA Mcmanus morphology finding Nom (Bld)NOT REPORTED NormalToledo HospitalComment on above:Performed By: #### CDP, CP, LIP, TROPI, LIPRF, GLYHGB #### [facility] [address] [place] [address] Human Resources Benefits Specialist: LUCIAN Mcmanus MorphologyNOT REPORTEDNormLima Memorial HospitalComment on above:Performed By: #### CDP, CP, LIP, TROPI, LIPRF, GLYHGB #### [facility] [address] [place], [place] [phone] Human Resources Benefits Specialist: WENDY Mcmanus BRAIN W WO CONTRASTon [id number] BRAIN W WO CONTRASTEXAMINATION: MRI OF THE [...] Signed by: Chaitanya Sawyer MD 10/11/19 Final resultNoOhioHealth Marion General Hospital, [facility] Incoming Radiant Results From [employer] - 10/11/2019 3:07 PM EDT EXAMINATION: MRI [...] Small meningioma over the right frontal lobe. [facility], WYVolume loss with chronic white matter microvascular ischemic change. Small meningioma over the right frontal lobe.[facility], [place] EXAMINATION: MRI OF THE BRAIN WITHOUT AND [...] The soft tissues demonstrate no acute abnormality. [facility], KYPOC Glucose Fingerstickon [id number] [Mass/Vol]121 mg/pZMzsu65 - 105 mg/dLNewark Hospital, KYInterpretation and review of laboratory resultsAbnoCleveland Clinic Euclid Hospital, KYGlucose [Mass/Vol]171 mg/vULspn45 - 105 mg/dLNewark Hospital, KYInterpretation and review of laboratory results AbnormalNewark Hospital, KYGlucose [Mass/Vol]127 mg/hISmkf47 - 105 mg/dLNewark Hospital, KYInterpretation and review of laboratory resultsAbnoCleveland Clinic Euclid Hospital, KYGlucose [Mass/Vol]145 mg/lOFqgv84 - 105 mg/dLNewark Hospital, [place] Interpretation and review of laboratory resultsAbnoCleveland Clinic Euclid Hospital, KYXR CHEST PORTABLEon [id number]: ONE XRAY VIEW OF THE CHEST 10/11/2019 10:45 pm COMPARISON: 06/27/2017 HISTORY: ORDERINGSYSTEM PROVIDED HISTORY: evaluate TECHNOLOGIST PROVIDED HISTORY: evaluate Reason for Exam: Upright p ortable Acuity: Unknown Type of Exam: Unknown FINDINGS: Cardiomediastinal silhouette is unchanged in size. Aortic atherosclerosis. No pulmonary consolidation, pleural effusion, or pneumothorax. No acute osseous abnormality. [facility], CLARAEdi, Mhpn Incoming Radiant Results From [employer] - 10/11/2019 11:49 PM EDT EXAMINATION: ONE XRAY VIEW OF THE CHEST 10/11/2019 10:45 pm COMPARISON: 06/27/2017 HISTORY: ORDERING SYSTEM PROVIDED HISTORY: evaluate TECHNOLOGIST PROVIDED HISTORY: evaluate Reason for Exam: Upright portable Acuity: Unknown Type of Exam: Unknown FINDINGS: Cardiomediastinal silhouette is unchanged in size. Aortic atherosclerosis. No pulmonary consolidation, pleural effusion, or pneumothorax. No acute osseous abnormality. IMPRESSION: No acute cardiopulmonary abnormality. Newark HospitalJIMo acute cardiopulmonary abnormality.[facility] [place] Basic Metab w/rfx MGon 10-10-2019(cont.)NormalToledo Hospital Comment on above:Result Comment: Average GFR for 70 or more years old: 75 mL/min/1.73sq m Chronic Kidney Disease: <60 mL/min/1.73sq m Kidney failure: <15 mL/min/1.73sq m eGFR calculated using average adult body mass. Additional eGFR calculator available at: http://www.Clutter/multiple_crcl_2012.htmPerformed By: #### CDP, CP, LIP, TROPI, LIPRF, GLYHGB #### [employer] [address] [place] [address] Human Resources Benefits Specialist: Brandon Anaya MDAnion gap [Moles/Vol]10 mmol/LNormal9-17Toledo HospitalComment on above:Performed By: #### CDP, CP, LIP, TROPI, LIPRF, GLYHGB #### [employer] [address] [place] [address] Human Resources Benefits Specialist: Brandon Anaya MDCalcium [Mass/Vol]9.0 mg/dLNormal8.6-10.4T[facility]edo HospitalComment on above:Performed By: #### CDP, CP, LIP, TROPI, LIPRF, GLYHGB #### [employer] [address] [place] [address] Human Resources Benefits Specialist: Brandon Anaya MDChloride [Moles/Vol]97 mmol/RTds65-604FggcfToledo HospitalComment on above:Performed By: #### CDP, CP, LIP, TROPI, LIPRF, GLYHGB #### [employer] [address] [place] [address] Human Resources Benefits Specialist: Brandon Anaya MDCO2 [Moles/Vol]25 mmol/IHqtgtp24-65HbfvfToledo HospitalComment on above:Performed By: #### CDP, CP, LIP, TROPI, LIPRF, GLYHGB #### [facility] [address] [place] [address] Human Resources Benefits Specialist: NEHAL Mcmanusreatinine [Mass/Vol]0.50 mg/dLNormal0.50-0.90 [facility] HospitalComment on above:Performed By: #### CDP, CP, LIP, TROPI, LIPRF, GLYHGB #### [address] [address] Human Resources Benefits Specialist: CAROLYN Mcmanus, Amer>60Normal>60T[facility]edo HospitalComment on above:Performed By: #### CDP, CP, LIP, TROPI, LIPRF, GLYHGB #### [address] [address] Human Resources Benefits Specialist: CAROLYN Mcmanus,non Amer>60Normal>60T[facility]edo HospitalComment on above:Performed By: #### CDP, CP, LIP, TROPI, LIPRF, GLYHGB #### [address] [address] Human Resources Benefits Specialist: Brandon Anaya MDGlucose [Mass/Vol]123 mg/iSKhzc04-94VkofbUCSF Benioff Children's Hospital OaklandComment on above:Performed By: #### CDP, CP, LIP, TROPI, LIPRF, GLYHGB #### [address] [address] Human Resources Benefits Specialist: BLADIMIR Mcmanusotassium [Moles/Vol]3.5 mmol/LLow3.7-5.3MU[facility] Hospital OaklandComment on above:Performed By: #### CDP, CP, LIP, TROPI, LIPRF, GLYHGB #### [address] [address] Human Resources Benefits Specialist: FABIANA Mcmanusodium [Moles/Vol]132 mmol/XRxv150-948EngubToledo HospitalComment on above:Performed By: #### CDP, CP, LIP, TROPI, LIPRF, GLYHGB #### [facility] [address] [place] [address] Human Resources Benefits Specialist: Brandon Anaya MDUrea nitrogen [Mass/Vol]14 mg/dLNormal8-23T[facility]edo HospitalComment on above:Performed By: #### CDP, CP, LIP, TROPI, LIPRF, GLYHGB #### [facility] [address] [place] [address] Human Resources Benefits Specialist: BAUDILIO McmanusN/CRE RatioNOT REPORTEDNormal9-20T[facility]edo HospitalComment on above:Performed By: #### CDP, CP, LIP, TROPI, LIPRF, GLYHGB #### [facility] [address] [place] [address] Human Resources Benefits Specialist: FABIANA Mcmanustaging:NOT REPORTEDNormalToledo HospitalComment on above:Performed By: #### CDP, CP, LIP, TROPI, LIPRF, GLYHGB #### [facility] [address] [place] [address] Human Resources Benefits Specialist: Josh Mcmanus Metabolic Panel w/ Reflex to MGon [id number] gap [Moles/Vol]10 mmol/L9 - 17 mmol/LMercy Health- [place], KYBun/Cre RatioNOT REPORTEDMer Health- [place], KYCalcium [Mass/Vol]9.0 mg/dL8.6 - 10.4 mg/dLMercy Health- [place], KYChloride [Moles/Vol]97 mmol/LLow98 - 107 mmol/LMercy Health- [place], KYCO2 [Moles/Vol]25 mmol/L20 - 31 mmol/LMercy Health- [place], [place] Creatinine [Mass/Vol]0.5 mg/dL0.5 - 0.9 mg/dLNewark Hospital, KYGFR >60>60 mL/minNewark Hospital, KYGFR Non->60>60 mL/min [facility], KYGFR/1.73 sq M predicted among non-blacks MDRD (S/P/Bld) [Vol rate/Area][facility], KYComment on above:Average GFR for 70 or more years old: 75 mL/min/1.73sq m Chronic Kidney Disease: <60 mL/min/1.73sq m Kidney failure: <15 mL/min/1.73sq m eGFR calculated using average adult body mass. Additional eGFR calculator available at: http://www.Clutter/Gochikuru_crcl_2012.htm GFR/1.73 sq M predicted among non-blacks MDRD (S/P/Bld) [Vol rate/Area]NOT REPORTEDNewark Hospital, KYGlucose [Mass/Vol]123 mg/eZTokz93 - 99 mg/dLNewark Hospital, KYInterpretation and review of laboratory resultsAbnormMagruder Memorial Hospital, KYPotassium [Moles/Vol]3.5 mmol/LLow3.7 - 5.3 mmol/[facility], KYSodium [Moles/Vol]132 mmol/KTos507 - 144 mmol/[facility], KYUrea nitrogen [Mass/Vol]14 mg/dL8 - 23 mg/dLNewark Hospital, KYC-REACTIVE PROTEINon [id number] [Mass/Vol]6.3 mg/LHigh0 - 5 mg/LMKettering Health Main Campus, KYInterpretation and review of laboratory resultsAbnoCleveland Clinic Euclid Hospital, KYC-Reactive Protein on [id number] [Mass/Vol]6.3 mg/LHigh0.0-5.0[facility] Comment on above:Performed By: #### CDP, CP, LIP, TROPI, LIPRF, GLYHGB #### [employer] [facility] [place] [address] Human Resources Benefits Specialist: Brandon Anaya [facility] auto differentialon [id number] (Bld) [#/Vol]0.06 10*3/[facility]- [place], KYBasophils/100 WBC (Bld)1 %0 - 2 % [facility], KYDifferential TypeNOT REPORTEDAkron Children[facility]S [facility] [place], KYEosinophils (Bld) [#/Vol]0.07 10*3/[facility]- [place], KYEosinophils/100 WBC (Bld)1 %1 - 4 %[facility] [place], KYErythrocyte distribution width (RBC) [Ratio]14.5 %High11.8 - 14.4 %[facility] [place], KYHematocrit (Bld) [Volume fraction]42.7 %36.3 - 47.1 %[facility] [place], KYHemoglobin (Bld) [Mass/Vol]13.5 g/dL11.9 - 15.1 g/dLNewark Hospital, KYImmature granulocytes (Bld) [#/Vol]0.05 10*3/[facility] [place], KYImmature granulocytes (Bld) [#/Vol]1 %Uysu6DwotdNewark Hospital, KYInterpretation and review of laboratory resultsAbnormalAkron Children'S Hospital [place], KYLymphocytes (Bld) [#/Vol]1.05 10*3/uLLowPomerene Hospital- [place], KYLymphocytes/100 WBC (Bld)14 %Low24 - 43 %[facility], KYMCH (RBC) [Entitic mass]29.8 pg25.2 - 33.5 pgAkron Children'S Hospital [place], KYMCHC (RBC) [Mass/Vol]31.6 g/dL28.4 - 34.8 g/dLNewark Hospital, [place] MCV (RBC) [Entitic vol]94.3 fL82.6 - 102.9 fLAkron Children'S Hospital [place], KYMonocytes (Bld) [#/Vol]0.65 10*3/uLPomerene Hospital- [place], KYMonocytes/100 WBC (Bld)9 %3 - 12 %[facility] [place], KYPlatelet mean volume (Bld) [Entitic vol]10.9 fL8.1 - 13.5 fLNewark Hospital, KYPlatelets (Bld) [#/Vol]170 10*3/[facility], WYPlatelets (Bld) [#/Vol]NOT REPORTED[place], KYRBC (Bld) [#/Vol]4.53 10*6/uL3.95 - 5.11 m/uLProMedica Defiance [facility] morphology finding Nom (Bld)ANISOCYTOSIS PRESENTNewark Hospital, WYSegmented neutrophils/100 WBC (Bld)74 %High36 - 65 % [place], KYSegs Absolute5.55[place], KYWBC (Bld) [#/Vol]0.0 10*3/uL0.0 per 100 WBCEast Wenatchee, KYWBC (Bld) [#/Vol]7.4 10*3/uLNewark Hospital, WYW MorphologyNOT REPORTEDBrecksville VA [facility] with Diffon [id number]. Basophil0.06 k/uLNormal0.00-0.20[facility] Comment on above:Performed By: #### CDP, CP, LIP, TROPI, LIPRF, GLYHGB #### [employer] [address] [place] [address] Human Resources Benefits Specialist: Marie Mcmanus.Imm.Granulocyte0.05 k/uLNormal0.00-0.30[facility] HospitalComment on above:Performed By: #### CDP, CP, LIP, TROPI, LIPRF, GLYHGB #### [employer] [address] [place] [address] Human Resources Benefits Specialist: Marie Mcmanus.Neutrophil (Seg)5.55 k/uLNormal1.50-8.10 [facility] HospitalComment on above:Performed By: #### CDP, CP, LIP, TROPI, LIPRF, GLYHGB #### [employer] [address] [place] [address] Human Resources Benefits Specialist: Brandon Madoff, MDBasophils/100 WBC (Bld)1 %Normal0-2[facility] Hospital OaklandComment on above:Performed By: #### CDP, CP, LIP, TROPI, LIPRF, GLYHGB #### [facility] [address] [place] [address] Human Resources Benefits Specialist: Brandon Anaya MDEosinophils (Bld) [#/Vol]0.07 10*3/uLNormal 0.00-0.44[facility] HospitalComment on above:Performed By: #### CDP, CP, LIP, TROPI, LIPRF, GLYHGB #### [facility] [address] [place] [address] Human Resources Benefits Specialist: Brandon Anaya MDEosinophils/100 WBC (Bld)1 %Normal1-4[facility] HospitalComment on above:Performed By: #### CDP, CP, LIP, TROPI, LIPRF, GLYHGB #### [facility] [address] [place] [address] Human Resources Benefits Specialist: Brandon Anaya MDErythrocyte distribution width (RBC) [Ratio]14.5 %High11.8-14.4[facility] HospitalComment on above:Performed By: #### CDP, CP, LIP, TROPI, LIPRF, GLYHGB #### [place] [address] Human Resources Benefits Specialist: Brandon Anaya MDHematocrit (Bld) [Volume fraction]42.7 %Normal 36.3-47.1[facility] Hospital OaklandComment on above:Performed By: #### CDP, CP, LIP, TROPI, LIPRF, GLYHGB #### [facility] [address] [place] [address] Human Resources Benefits Specialist: Brandon Anaya MDHemoglobin (Bld) [Mass/Vol]13.5 g/dLNormal 11.9-15.1[facility] OaklandComment on above:Performed By: #### CDP, CP, LIP, TROPI, LIPRF, GLYHGB #### [facility] [address] [place] [address] Human Resources Benefits Specialist: Brandon Anaya MDImmature granulocytes (Bld) [#/Vol]1 %Hsot3RlkqoToledo HospitalComment on above:Performed By: #### CDP, CP, LIP, TROPI, LIPRF, GLYHGB #### [facility] [address] [place] [address] Human Resources Benefits Specialist: Kortney Mcmanusmphocytes (Bld) [#/Vol]1.05 10*3/uLLow 1.10-3.70[facility] HospitalComment on above:Performed By: #### CDP, CP, LIP, TROPI, LIPRF, GLYHGB #### [place] [address] Human Resources Benefits Specialist: Luiza Mcmanushocytes/100 WBC (Bld)14 %Vtf74-35KstxoToledo HospitalComment on above:Performed By: #### CDP, CP, LIP, TROPI, LIPRF, GLYHGB #### [facility] [address] [place] [address] Human Resources Benefits Specialist: LIZZY McmanusCH (RBC) [Entitic mass]29.8 piVkkszf78.2-33.5 [facility] HospitalComment on above:Performed By: #### CDP, CP, LIP, TROPI, LIPRF, GLYHGB #### [facility] [address] [place] [address] Human Resources Benefits Specialist: STEFFANIE McmanusC (RBC) [Mass/Vol]31.6 g/xILdrbse68.4-34.8 [facility] HospitalComment on above:Performed By: #### CDP, CP, LIP, TROPI, LIPRF, GLYHGB #### [address] [address] Human Resources Benefits Specialist: LIZZY McmanusCV (RBC) [Entitic vol]94.3 nXZiwwsi47.6-102.9 [facility] HospitalComment on above:Performed By: #### CDP, CP, LIP, TROPI, LIPRF, GLYHGB #### [place] [address] Human Resources Benefits Specialist: LIZZY Mcmanusonocytes (Bld) [#/Vol]0.65 10*3/uLNormal 0.10-1.20[facility] HospitalComment on above:Performed By: #### CDP, CP, LIP, TROPI, LIPRF, GLYHGB #### [place] [address] Human Resources Benefits Specialist: LIZZY Mcmanusonocytes/100 WBC (Bld)9 %Normal3-12[facility] HospitalComment on above:Performed By: #### CDP, CP, LIP, TROPI, LIPRF, GLYHGB #### [place] [address] Human Resources Benefits Specialist: Modesta Mcmanusophil (Seg)74 %Dnwp34-39QuaadToledo HospitalComment on above:Performed By: #### CDP, CP, LIP, TROPI, LIPRF, GLYHGB #### [place] [address] Human Resources Benefits Specialist: Brandon Anaya MDNRBC Automated0.0 per 100 WBCNormal0.0[facility] HospitalComment on above:Performed By: #### CDP, CP, LIP, TROPI, LIPRF, GLYHGB #### [address] [address] Human Resources Benefits Specialist: BLADIMIR Mcmanuslatelet mean volume (Bld) [Entitic vol]10.9 fL Normal8.1-13.5[facility]edo HospitalComment on above:Performed By: #### CDP, CP, LIP, TROPI, LIPRF, GLYHGB #### [facility] [address] [place] [address] Human Resources Benefits Specialist: Geremias Mcmanustelets (Bld) [#/Vol]170 10*3/fFBsluec108-284 [facility] HospitalComment on above:Performed By: #### CDP, CP, LIP, TROPI, LIPRF, GLYHGB #### [facility] [address] [place] [address] Human Resources Benefits Specialist: RICHA Mcmanus (Bld) [#/Vol]4.53 10*6/uLNormal3.95-5.11 [facility] HospitalComment on above:Performed By: #### CDP, CP, LIP, TROPI, LIPRF, GLYHGB #### [facility] [address] [place] [address] Human Resources Benefits Specialist: RICHA Mcmanus morphology finding Nom (Bld)ANISOCYTOSIS [facility] Medical Center - PrinevilleComment on above:Performed By: #### CDP, CP, LIP, TROPI, LIPRF, GLYHGB #### [facility] [address] [place] [address] Human Resources Benefits Specialist: LUCIAN Mcmanus (Bld) [#/Vol]7.4 10*3/uLNormal3.5-11.3[facility] OaklandComment on above:Performed By: #### CDP, CP, LIP, TROPI, LIPRF, GLYHGB #### [facility] [address] [place] [address] Human Resources Benefits Specialist: Gustabo Mcmanus Diff PerformedNOT Providence Portland Medical CenterComment on above:Performed By: #### CDP, CP, LIP, TROPI, LIPRF, GLYHGB #### [employer] [address] [place], [place] [phone] Human Resources Benefits Specialist: Bon Mcmanus (Adalberto) [#/Vol]NOT REPORTEDSamaritan North Health CenterComment on above:Performed By: #### CDP, CP, LIP, TROPI, LIPRF, GLYHGB #### [employer] [address] [place] [address] Human Resources Benefits Specialist: LUCIAN Mcmanus MorphologyNOT REPORTEDSamaritan North Health CenterComment on above:Performed By: #### CDP, CP, LIP, TROPI, LIPRF, GLYHGB #### [employer] [address] [place], [place] [phone] Human Resources Benefits Specialist: Brandon Anaya MDCT HEAD WO CONTRASTon [id number] HEAD WO CONTRASTEXAMINATION: CT OF THE HEAD [...] Signed by: Naga Browning MD 10/10/19 Final resultNoFairfield Medical Center1. No acute intracranial abnormality. 2. Mild chronic white matter microvascular ischemic changes.[facility], KYEXAMINATION: CT OF THE HEAD WITHOUT [...] abnormality of the visualized skull or soft tissues.[employer] IntelligenceRadha Mhpn Incoming Radiant Results From LensAR/MightyNest - 10/10/2019 5:31 PM EDT EXAMINATION: CT [...] Mild chronic white matter microvascular ischemic changes. [employer], KYCTA HEAD NECK W CONTRASTon [id number] HEAD NECK W CONTRASTEXAMINATION: CTA OF THE [...] Initial FINDINGS: CTA NECK: AORTIC ARCH/ARCH VESSELS: Eaxp-nw-oxqjamdd atherosclerotic plaque at the arch arch and [...] by: Naga Browning MD 10/10/19 Final resultNormalMercy Sonoma Valley HospitalEXAMINATION: CTA OF THE HEAD AND NECK [...] Initial FINDINGS: CTA NECK: AORTIC ARCH/ARCH VESSELS: Vqle-om-hbykxtej atherosclerotic plaque at the arch arch and [...] fluid collection. The salmeron-white differentiation is maintained. [facility], KY1. No acute arterial abnormality or hemodynamically significant arterial stenosis in the head or neck. 2. No intracranial aneurysm. [facility], Radha, papo Incoming Radiant Results From LensAR/MightyNest - 10/10/2019 5:36 PM EDT EXAMINATION: CTA [...] Initial FINDINGS: CTA NECK: AORTIC ARCH/ARCH VESSELS: Obcj-sw-yiieahfw atherosclerotic plaque at the arch arch and [...] head or neck. 2. No intracranial aneurysm. [facility], KYHemoglobin A1Con [id number] (Bld) [Mass fraction]111 mg/dLNoFairfield Medical CenterComment on above:Result Comment: The ADA and AACC recommend providing the estimated average glucose result to permit better patient understanding of their HBA1c result.Performed By: #### CDP, CP, LIP, TROPI, LIPRF, GLYHGB #### [facility] [place], [place] [phone] Human Resources Benefits Specialist: Brandon Anaya MDHbA1c (Bld) [Mass fraction]5.5 %Normal4.0-6.0 [facility] HospitalComment on above:Performed By: #### CDP, CP, LIP, TROPI, LIPRF, GLYHGB #### [facility] [address] [place] [address] [phone] Human Resources Benefits Specialist: Brandon Anaya MDGlucose [Mass/Vol]111 mg/dLEast Wenatchee, [place] Comment on above:The ADA and AACC recommend providing the estimated average glucose result to permit better patient understanding of their HBA1c result. HbA1c (Bld) [Mass fraction]5.5 %4 - 6 %[place], KYLACTIC ACID, WHOLE BLOODon [id number] Acid, Whole Blood1.0 mmol/L0.7 - 2.1 mmol/LMFrankfort, KYLactic Acid,Whole Blon 92-83-5103Mtlfhp Acid,Whole Bl1.0 mmol/L Normal0.7-2.1[facility] Hospital OaklandComment on above:Performed By: #### CDP, CP, LIP, TROPI, LIPRF, GLYHGB #### [facility] [address] [place] [address] [phone] Human Resources Benefits Specialist: Yane Mcmanusgnesiumon [id number] [Mass/Vol]2.1 mg/dLNormal1.6-2.6MU[facility] Hospital OaklandComment on above:Performed By: #### CDP, CP, LIP, TROPI, LIPRF, GLYHGB #### [facility] [address] [place] [address] [phone] Human Resources Benefits Specialist: Brandon Anaya MDMagnesium [Mass/Vol]2.1 mg/dL1.6 - 2.6 mg/dL [facility] KYOtheron . Subtle sclerosis subjacent to the L2 and L3 superior endplates is age-indeterminate and could represent trabecular condensation associated with acute or subacute endplate fractures. MRI of the lumbar spine is recommended for further evaluation. 2. No acute osseous abnormality of the sacrum or coccyx. 3. Osteopenia.[facility], CLARAEdi, Mhpn Incoming Radiant Results From LensAR/MightyNest - 10/10/2019 8:19 PM EDT EXAMINATION: THREE [...] of the sacrum or coccyx. 3. Osteopenia. [facility], KYEXAMINATION: THREE XRAY VIEWS OF THE SACRUM/COCCYX; THREE [...] in the urinary bladder. Atherosclerotic calcifications are present.[facility], WYPO Glucose Fingerstickon [id number] [Mass/Vol]159 mg/cDOozn42 - 105 mg/dLNewark Hospital, [place] Interpretation and review of laboratory resultsAbnoCleveland Clinic Euclid [facility], [place] Glucose [Mass/Vol]186 mg/dGLugg54 - 105 mg/dLNewark Hospital, WYInterpretation and review of laboratory resultsAbnoCleveland Clinic Euclid Hospital, WYGlucose [Mass/Vol] 135 mg/mGKrnk06 - 105 mg/dLNewark Hospital, KYInterpretation and review of laboratory resultsAbUniversity Hospitals [facility], WYProcalcitoninon 10-10-2019 Procalcitonin0.15 ng/mLHigh<0.09[facility] HospitalComment on above:Result Comment: Suspected Sepsis: <0.50 [...] entered into the Change in Procalcitonin Calculator (www.csoejw-rqz-qwuzmpfdlo.com) to determine the patient's Mortality Risk Prognosis In healthy neonates, plasma Procalcitonin (PCT) concentrations increase gradually after , reaching peak values at about 24 hours of age then decrease to normal values below 0.5 ng/mL by 48-72 hours of age.Performed By: #### CDP, CP, LIP, TROPI, LIPRF, GLYHGB #### [employer] [facility] [place], [place] [phone] Human Resources Benefits Specialist: Brandon Anaya MDInterpretation and review of laboratory results AbnormalEast [place], KYProcalcitonin0.15 ng/mLHigh<0.09[place], [place] Comment on above: Suspected Sepsis: <0.50 [...] entered into the Change in Procalcitonin Calculator (www.vlxcmn-aip-dtpafjhbcf.Corpora) to determine the patient's Mortality Risk Prognosis In healthy neonates, plasma Procalcitonin (PCT) concentrations increase gradually after , reaching peak values at about 24 hours of age then decrease to normal values below 0.5 ng/mL by 48-72 hours of age. Sedimentation Rateon [id number] Rate8 mmNormal0-30[facility] HospitalComment on above:Performed By: #### CDP, CP, LIP, TROPI, LIPRF, GLYHGB #### [employer] [address] [place] [address] Human Resources Benefits Specialist: FABIANA Mcmanused Rate8 mm0 - 30 [facility] w/reflex to FT4on [id number] Qn1.05 m[IU]/LNormal0.30-5.00[facility] HospitalComment on above:Performed By: #### CDP, CP, LIP, TROPI, LIPRF, GLYHGB #### [employer] [address] [place] [address] [phone] Human Resources Benefits Specialist: LUISA Mcmanus with Reflexon [id number] Qn1.05 m[IU]/L [facility], KYXR LUMBAR SPINE (2-3 VIEWS)on [id number] LUMBAR SPINE (2-3 VIEWS)EXAMINATION: THREE XRAY VIEWS [...] Signed by: Naga Browning MD 10/10/19 Final resultNormalMerGlendale Memorial Hospital and Health CenterXR SACRUM COCCYX (MIN 2 VIEWS) on [id number] SACRUM COCCYX (MIN 2 VIEWS)EXAMINATION: THREE XRAY [...] Signed by: Naga Browning MD 10/10/19 Final resultNormalToledo HospitalBeta Hydroxybutyrateon 48-34-3622Cich Hydroxybutyrate0.09 mmol/LNormal0.02-0.27[facility] HospitalComment on above:Performed By: #### ARI #### [employer] [address] [place] [address] Human Resources Benefits Specialist: Brandon Anaya MDBeta-Hydroxybutyrateon 10-09-2019 Beta-Hydroxybutyrate0.09 mmol/L0.02 - 0.27 mmol/LMKettering Health Main Campus, WYCBC WITH AUTO DIFFERENTIALon 98-81-1216Tbxdydthz (Bld) [#/Vol]0.03 10*3/[facility], WYBasophils/100 WBC (Bld)0 %0 - 2 %[facility], WYDifferential TypeNOT REPORTEDNewark Hospital, WYEosinophils (Bld) [#/Vol]10*3/[facility], [place] Eosinophils/100 WBC (Bld)0 %Low1 - 4 %[facility], WYErythrocyte distribution width (RBC) [Ratio]14.2 %11.8 - 14.4 %[facility], [place] Hematocrit (Bld) [Volume fraction]44.6 %36.3 - 47.1 %[facility], [place] Hemoglobin (Bld) [Mass/Vol]14.2 g/dL11.9 - 15.1 g/dLNewark Hospital, WYImmature granulocytes (Bld) [#/Vol]1 %Ifbg5AfznmNewark Hospital, WYImmature granulocytes (Bld) [#/Vol]0.06 10*3/[facility]- [place], KYInterpretation and review of laboratory resultsAbnormalPomerene Hospital- [place], KYLymphocytes (Bld) [#/Vol]0.97 10*3/uLLowPomerene Hospital- [place], KYLymphocytes/100 WBC (Bld)13 %Low24 - 43 %[facility]- [place], WYMCH (RBC) [Entitic mass]29.7 pg25.2 - 33.5 pgPomerene Hospital- [place], [place] MCHC (RBC) [Mass/Vol]31.8 g/dL28.4 - 34.8 g/dLAkron Children'S Hospital [place], KYMCV (RBC) [Entitic vol]93.3 fL82.6 - 102.9 fLPomerene Hospital- [place], KYMonocytes (Bld) [#/Vol] 0.52 10*3/uLPomerene Hospital- [place], KYMonocytes/100 WBC (Bld)7 %3 - 12 %[facility]- [place], WYPlatelet mean volume (Bld) [Entitic vol]10.9 fL8.1 - 13.5 fLAkron Children'S Hospital [place], KYPlatelets (Bld) [#/Vol]NOT REPORTEDPomerene Hospital- [place], KYPlatelets (Bld) [#/Vol]202 10*3/uLPomerene Hospital- [place], WYRBC (Bld) [#/Vol]4.78 10*6/uL3.95 - 5.11 m/[facility]- [place], WYRBC morphology finding Nom (Bld)NOT REPORTEDNewark Hospital, WYSegmented neutrophils/100 WBC (Bld)79 %High36 - 65 %[facility]- [place], CLARASegs Absolute6.10[facility], KYWBC (Bld) [#/Vol]0.0 10*3/uL0.0 per 100 WBCPomerene Hospital- [place], KYWBC (Bld) [#/Vol]7.7 10*3/[facility]- [place], KYWBC MorphologyNOT REPORTEDNewark Hospital, WYCBC with Diffon [id number]. Basophil0.03 k/uLNormal0.00-0.20[facility] HospitalComment on above:Performed By: #### CDP, CP, LIP, TROPI, LIPRF, GLYHGB #### [address] [address] Human Resources Benefits Specialist: MDAbs. MariettaImm.Granulocyte0.06 k/uLNormal0.00-0.30[facility] HospitalComment on above:Performed By: #### CDP, CP, LIP, TROPI, LIPRF, GLYHGB #### [address] [address] Human Resources Benefits Specialist: MDAbs. MariettaNeutrophil (Seg)6.10 k/uLNormal1.50-8.10 [facility] HospitalComment on above:Performed By: #### CDP, CP, LIP, TROPI, LIPRF, GLYHGB #### [address] [address] Human Resources Benefits Specialist: Brandon Anaya MDBasophils/100 WBC (Bld)0 %Normal0-2[facility] HospitalComment on above:Performed By: #### CDP, CP, LIP, TROPI, LIPRF, GLYHGB #### [address] [address] Human Resources Benefits Specialist: MAU Mcmanusosinophils (Bld) [#/Vol]10*3/uLNormal0.00-0.44 [facility] HospitalComment on above:Performed By: #### CDP, CP, LIP, TROPI, LIPRF, GLYHGB #### [address] [address] Human Resources Benefits Specialist: MAU Mcmanusosinophils/100 WBC (Bld)0 %Low1-4[facility] HospitalComment on above:Performed By: #### CDP, CP, LIP, TROPI, LIPRF, GLYHGB #### [address] [address] Human Resources Benefits Specialist: Brandon Anaya MDErythrocyte distribution width (RBC) [Ratio]14.2 %Bzzdoh83.8-14.4[facility] HospitalComment on above:Performed By: #### CDP, CP, LIP, TROPI, LIPRF, GLYHGB #### [place] [address] Human Resources Benefits Specialist: Brandon Anaya MDHematocrit (Bld) [Volume fraction]44.6 %Normal 36.3-47.1[facility] Hospital OaklandComment on above:Performed By: #### CDP, CP, LIP, TROPI, LIPRF, GLYHGB #### [place] [address] Human Resources Benefits Specialist: Brandon Anaya MDHemoglobin (Bld) [Mass/Vol]14.2 g/dLNormal 11.9-15.1[facility] Hospital OaklandComment on above:Performed By: #### CDP, CP, LIP, TROPI, LIPRF, GLYHGB #### [place] [address] Human Resources Benefits Specialist: Brandon Anaya MDImmature granulocytes (Bld) [#/Vol]1 %Oyqq5XyxpnToledo HospitalComment on above:Performed By: #### CDP, CP, LIP, TROPI, LIPRF, GLYHGB #### [place] [address] Human Resources Benefits Specialist: Brandon Anaya MDLymphocytes (Bld) [#/Vol]0.97 10*3/uLLow 1.10-3.70[facility] HospitalComment on above:Performed By: #### CDP, CP, LIP, TROPI, LIPRF, GLYHGB #### [facility] [address] [place] [address] Human Resources Benefits Specialist: Brandon Madoff, MDLymphocytes/100 WBC (Bld)13 %Tac86-84MaocxToledo HospitalComment on above:Performed By: #### CDP, CP, LIP, TROPI, LIPRF, GLYHGB #### [facility] [address] [place] [address] Human Resources Benefits Specialist: LIZZY McmanusCH (RBC) [Entitic mass]29.7 egGgypyz05.2-33.5 [facility] HospitalComment on above:Performed By: #### CDP, CP, LIP, TROPI, LIPRF, GLYHGB #### [address] [address] Human Resources Benefits Specialist: LIZZY McmanusCHC (RBC) [Mass/Vol]31.8 g/tCXnicyh68.4-34.8 [facility] HospitalComment on above:Performed By: #### CDP, CP, LIP, TROPI, LIPRF, GLYHGB #### [facility] [address] [place] [address] Human Resources Benefits Specialist: LIZZY McmanusCV (RBC) [Entitic vol]93.3 oDLgxgpo96.6-102.9 [facility] HospitalComment on above:Performed By: #### CDP, CP, LIP, TROPI, LIPRF, GLYHGB #### [place] [address] Human Resources Benefits Specialist: LIZZY Mcmanusonocytes (Bld) [#/Vol]0.52 10*3/uLNormal 0.10-1.20[facility] HospitalComment on above:Performed By: #### CDP, CP, LIP, TROPI, LIPRF, GLYHGB #### [facility] [address] [place] [address] Human Resources Benefits Specialist: LIZZY Mcmanusonocytes/100 WBC (Bld)7 %Normal3-12[facility] HospitalComment on above:Performed By: #### CDP, CP, LIP, TROPI, LIPRF, GLYHGB #### [facility] [address] [place] [address] Human Resources Benefits Specialist: Shakir Mcmanus (Seg)79 %Wdrj05-42DccscToledo HospitalComment on above:Performed By: #### CDP, CP, LIP, TROPI, LIPRF, GLYHGB #### [facility] [address] [place] [address] Human Resources Benefits Specialist: JOSIE Mcmanus Automated0.0 per 100 WBCNormal0.0T[facility] HospitalComment on above:Performed By: #### CDP, CP, LIP, TROPI, LIPRF, GLYHGB #### [facility] [address] [place] [address] Human Resources Benefits Specialist: Nadeem Mcmanus mean volume (Bld) [Entitic vol]10.9 fL Normal8.1-13.5T[facility] HospitalComment on above:Performed By: #### CDP, CP, LIP, TROPI, LIPRF, GLYHGB #### [facility] [address] [place] [address] Human Resources Benefits Specialist: Bon Mcmanus (Bld) [#/Vol]202 10*3/tYZaznrw030-329 [facility] HospitalComment on above:Performed By: #### CDP, CP, LIP, TROPI, LIPRF, GLYHGB #### [facility] [address] [place] [address] Human Resources Benefits Specialist: RICHA Mcmanus (Bld) [#/Vol]4.78 10*6/uLNormal3.95-5.11 [facility] HospitalComment on above:Performed By: #### CDP, CP, LIP, TROPI, LIPRF, GLYHGB #### [facility] [address] [place] [address] Human Resources Benefits Specialist: LUCIAN Mcmanus (Bld) [#/Vol]7.7 10*3/uLNormal3.5-11.3[facility] HospitalComment on above:Performed By: #### CDP, CP, LIP, TROPI, LIPRF, GLYHGB #### [facility] [address] [place] [address] Human Resources Benefits Specialist: Gustabo Mcmanus Diff PerformedNOT REPORTEDNormalMerGlendale Memorial Hospital and Health CenterComment on above:Performed By: #### CDP, CP, LIP, TROPI, LIPRF, GLYHGB #### [facility] [address] [place] [address] Human Resources Benefits Specialist: Bon Mcmanus (Bld) [#/Vol]NOT REPORTEDNormalToledo HospitalComment on above:Performed By: #### CDP, CP, LIP, TROPI, LIPRF, GLYHGB #### [facility] [address] [place] [address] Human Resources Benefits Specialist: RICHA Mcmanus morphology finding Nom (Bld)NOT REPORTED [facility] North Health CenterComment on above:Performed By: #### CDP, CP, LIP, TROPI, LIPRF, GLYHGB #### [facility] [address] [place] [address] Human Resources Benefits Specialist: LUCIAN Mcmanus MorphologyNOT REPORTEDNormalToledo HospitalComment on above:Performed By: #### CDP, CP, LIP, TROPI, LIPRF, GLYHGB #### [facility] [address] [place] [address] Human Resources Benefits Specialist: NEHAL McmanusOVID-19, PCRon [id number]-CoV-2MercPremier Health Miami [facility] [place], PZMOQS-AjX-3, PCRAkron Children'S Hospital [place], QRVPXK-SeB-7, RapidNot Detected Not DetectedEast Wenatchee, KYComment on above: Rapid NAAT: The specimen is [...] management decisions. Fact sheet for Healthcare Providers: https://www.fda.gov/media/075995/download Fact sheet for Patients: https://www.fda.gov/media/013147/download Methodology: Isothermal Nucleic Acid Amplification Source.NASOPHARYNGEAL SWABGuernsey Memorial Hospital CHEST PULMONARY EMBOLISM W CONTRASTon [id number] CHEST PULMONARY EMBOLISM W CONTRASTEXAMINATION: CTA OF [...] Signed by: Forrest Darby MD 10/09/19 Final resultNoFairfield Medical CenterNo central or segmental pulmonary embolus. No acute pulmonary process. Emphysema.[facility], CLARA EXAMINATION: CTA OF THE CHEST 10/09/2019 5:52 [...] No focal consolidation. Bones: Thoracic spine degenerative changes.[facility] HospitalRadha Mhpn Incoming Radiant Results From [employer] - 10/09/2019 8:31 AM EDT EXAMINATION: CTA [...] pulmonary embolus. No acute pulmonary process. Emphysema. [facility] HospitalCLARAScotland County Memorial Hospital Metabolic Profon 10-09-2019(cont.)NormalToledo HospitalComment on above:Result Comment: Average GFR for 70 or more years old: 75 mL/min/1.73sq m Chronic Kidney Disease: <60 mL/min/1.73sq m Kidney failure: <15 mL/min/1.73sq m eGFR calculated using average adult body mass. Additional eGFR calculator available at: http://www.Clutter/multiple_crcl_2012.htmPerformed By: #### CDP, CP, LIP, TROPI, LIPRF, GLYHGB #### [employer] [address] [place] [address] Human Resources Benefits Specialist: Brandon Anaya MDAlbumin [Mass/Vol]4.1 g/dLNormal3.5-5.2MUCSF [facility] Hospital OaklandComment on above:Performed By: #### CDP, CP, LIP, TROPI, LIPRF, GLYHGB #### [facility] [address] [place] [address]155 Human Resources Benefits Specialist: Brandon Anaya MDAlbumin/Globulin [Mass ratio]1.6 {ratio}Normal 1.0-2.5Toledo HospitalComment on above:Performed By: #### CDP, CP, LIP, TROPI, LIPRF, GLYHGB #### [employer] [address] [place] [address]13 Human Resources Benefits Specialist: Po Mcmanus Phos90 U/QIusjyg38-473YemejToledo HospitalComment on above:Performed By: #### CDP, CP, LIP, TROPI, LIPRF, GLYHGB #### [employer] [address] [place] [address]270 Human Resources Benefits Specialist: Brandon Anaya MDALT [Catalytic activity/Vol]15 U/LNormal5-33 Toledo HospitalComment on above:Performed By: #### CDP, CP, LIP, TROPI, LIPRF, GLYHGB #### [employer] [address] [place] [address]189 Human Resources Benefits Specialist: Brandon Anaya MDAnion gap [Moles/Vol]18 mmol/LHigh9-17Toledo HospitalComment on above:Performed By: #### CDP, CP, LIP, TROPI, LIPRF, GLYHGB #### [facility] [address] [place] [address] 03533 Human Resources Benefits Specialist: Brandon Anaya MDAST [Catalytic activity/Vol]11 U/LNormal<32MerGlendale Memorial Hospital and Health CenterComment on above:Performed By: #### CDP, CP, LIP, TROPI, LIPRF, GLYHGB #### [facility] [address] [place] [address]3914 Human Resources Benefits Specialist: Brandon Anaya MDBilirubin Ql (U)0.39 mg/dLNormal0.3-1.2MU[facility]'s Hospital OaklandComment on above:Performed By: #### CDP, CP, LIP, TROPI, LIPRF, GLYHGB #### [facility] [address] [place] [address] 9[address]83 Human Resources Benefits Specialist: Brandon Anaya MDCalcium [Mass/Vol]9.5 mg/dLNormal8.6-10.4Toledo HospitalComment on above:Performed By: #### CDP, CP, LIP, TROPI, LIPRF, GLYHGB #### [facility] [address] [place] [address] 67914 Human Resources Benefits Specialist: Brandon Anaya MDChloride [Moles/Vol]99 mmol/XMapyrb22-870GzxgfToledo HospitalComment on above:Performed By: #### CDP, CP, LIP, TROPI, LIPRF, GLYHGB #### [employer] [address] [place] [address] 52756 Human Resources Benefits Specialist: Brandon Anaya MDCO2 [Moles/Vol]24 mmol/HTxgynu45-99TkhxzToledo HospitalComment on above:Performed By: #### CDP, CP, LIP, TROPI, LIPRF, GLYHGB #### [address] [address] Human Resources Benefits Specialist: NEHAL Mcmanusreatinine [Mass/Vol]0.63 mg/dLNormal0.50-0.90 Toledo HospitalComment on above:Performed By: #### CDP, CP, LIP, TROPI, LIPRF, GLYHGB #### [address] [address] Human Resources Benefits Specialist: Brandon Anaya MDGFR, Amer>60Normal>60Mer[facility] Sonoma Valley HospitalComment on above:Performed By: #### CDP, CP, LIP, TROPI, LIPRF, GLYHGB #### [address] [address] Human Resources Benefits Specialist: CAROLYN Mcmanus,non Amer>60Normal>60MerGlendale Memorial Hospital and Health CenterComment on above:Performed By: #### CDP, CP, LIP, TROPI, LIPRF, GLYHGB #### [address] [address] Human Resources Benefits Specialist: Brandon Anaya MDGlucose [Mass/Vol]208 mg/lSEurr02-77EevldUCSF Benioff Children's Hospital OaklandComment on above:Performed By: #### CDP, CP, LIP, TROPI, LIPRF, GLYHGB #### [address] [address] Human Resources Benefits Specialist: BLADIMIR Mcmanusotassium [Moles/Vol]3.9 mmol/LNormal3.7-5.3 Toledo HospitalComment on above:Performed By: #### CDP, CP, LIP, TROPI, LIPRF, GLYHGB #### [address] [address] Human Resources Benefits Specialist: BLADIMIR Mcmanusrotein [Mass/Vol]6.6 g/dLNormal6.4-8.3MU[facility]'s Hospital OaklandComment on above:Performed By: #### CDP, CP, LIP, TROPI, LIPRF, GLYHGB #### [facility] [address] [place] [address] Human Resources Benefits Specialist: FABIANA Mcmanusodium [Moles/Vol]141 mmol/KTpgsja711-422UskohToledo HospitalComment on above:Performed By: #### CDP, CP, LIP, TROPI, LIPRF, GLYHGB #### [facility] [address] [place] [address] Human Resources Benefits Specialist: Rebecca Mcmanus nitrogen [Mass/Vol]17 mg/dLNormal8-23Toledo HospitalComment on above:Performed By: #### CDP, CP, LIP, TROPI, LIPRF, GLYHGB #### [facility] [address] [place] [address] Human Resources Benefits Specialist: RADHA Mcmanus/SHA ElenaOT REPORTEDNormal9-20Toledo HospitalComment on above:Performed By: #### CDP, CP, LIP, TROPI, LIPRF, GLYHGB #### [facility] [address] [place] [address] Human Resources Benefits Specialist: FABIANA Mcmanustaging:NOT REPORTEDNormalToledo HospitalComment on above:Performed By: #### CDP, CP, LIP, TROPI, LIPRF, GLYHGB #### [facility] [address] [place] [address] Human Resources Benefits Specialist: NEHAL Mcmanusomprehensive Metabolic Panelon 10-09-2019 Albumin [Mass/Vol]4.1 g/dL3.5 - 5.2 g/dLNewark Hospital, KYAlbumin/Globulin [Mass ratio]1.6 {ratio}[facility], KYALP [Catalytic activity/Vol]90 U/L35 - 104 U/LMercy Health- [place], KYALT [Catalytic activity/Vol]15 U/L5 - 33 U/LMsheltering arms hospitaly Health- [place], KYAnion gap [Moles/Vol]18 mmol/LHigh9 - 17 mmol/LMsheltering arms hospitaly Health- [place], KYAST [Catalytic activity/Vol]11 U/L<32[facility]- [place], KYBilirubin Ql (U)0.39 mg/dL0.3 - 1.2 mg/dLNewark Hospital, KYBun/Cre RatioNOT REPORTEDMerMultiCare [facility]- [place], KYCalcium [Mass/Vol]9.5 mg/dL8.6 - 10.4 mg/dLNewark Hospital, KYChloride [Moles/Vol]99 mmol/L98 - 107 mmol/LMBlanchard Valley Health System [facility]- [place], KYCO2 [Moles/Vol]24 mmol/L 20 - 31 mmol/LMBlanchard Valley Health System [facility]- [place], KYCreatinine [Mass/Vol]0.63 mg/dL0.5 - 0.9 mg/dL [facility], KYGFR >60>60 mL/minNewark Hospital, KYGFR Non->60>60 mL/minNewark Hospital, KYGFR/1.73 sq M predicted among non-blacks MDRD (S/P/Bld) [Vol rate/Area][facility], KYComment on above:Average GFR for 70 or more years old: 75 mL/min/1.73sq m Chronic Kidney Disease: <60 mL/min/1.73sq m Kidney failure: <15 mL/min/1.73sq m eGFR calculated using average adult body mass. Additional eGFR calculator available at: http://www.Orderlord.Corpora/multiple_crcl_2012.htm GFR/1.73 sq M predicted among non-blacks MDRD (S/P/Bld) [Vol rate/Area]NOT REPORTEDNewark Hospital, KYGlucose [Mass/Vol]208 mg/xPIkej21 - 99 mg/dLNewark Hospital, KYInterpretation and review of laboratory resultsAbnormalPomerene Hospital- [place], KYPotassium [Moles/Vol]3.9 mmol/L3.7 - 5.3 mmol/LMercy Health- [place], KYProtein [Mass/Vol]6.6 g/dL6.4 - 8.3 g/dLPomerene Hospital- [place], KYSodium [Moles/Vol] 141 mmol/L135 - 144 mmol/LMohiohealth doctors hospital Health- [place], KYUrea nitrogen [Mass/Vol]17 mg/dL8 - 23 mg/dLBarnesville Hospital [facility]- [place], KYEKG 12 Leadon [id number] Fzjm42FOFBidlc Health- [place], KYP Vyxr88vnrpzyyIneux Health- [place], KYP-R Rhghfqch354 [facility]- [place], KYQ-T Nrsmdbwz077 [facility]- [place], KYQRS Hyuytryg04 [facility]- [place], KYQTc Calculation (lexiitt)466 [facility]- [place], KYR Appling-9degrRiverside Methodist Hospital- [place], KYT Emxh4obkpkrnLjxxa Health- [place], KYVentricular Otes60ZYHEilvk Health- [place], KYEdi, Mhpn Incoming Ekg Results From [facility] - 10/09/2019 3:25 PM EDT Normal sinus rhythm Possible Left atrial enlargement Nonspecific ST abnormality Abnormal ECG No previous ECGs availableNewark Hospital, KYNormal sinus rhythm Possible Left atrial enlargement Nonspecific ST abnormality Abnormal ECG No previous ECGs availableAkron Children'S Hospital [place], KYLIPASEon 99-56-1800Evolro [Catalytic activity/Vol] 48 U/L13 - 60 U/[facility] [place], KYLipaseon 27-79-2917Bynhso [Catalytic activity/Vol]48 U/IGzrsqa65-33KnawcToledo HospitalComment on above: Performed By: #### CDP, CP, LIP, TROPI, LIPRF, GLYHGB #### [employer] [address] [place] [address] Human Resources Benefits Specialist: Cooper Mcmanus Prof, Fastingon 67-34-0456Zrwjbolibtt [Mass/Vol]229 mg/dLHigh<200Toledo HospitalComment on above: Result Comment: Cholesterol Guidelines: <200 Desirable 200-240 Borderline >240 UndesirablePerformed By: #### CDP, CP, LIP, TROPI, LIPRF, GLYHGB #### [address] [phone] Human Resources Benefits Specialist: NEHAL Mcmanusholesterol in HDL [Mass/Vol]50 mg/dLNormal>40 Toledo HospitalComment on above:Result Comment: HDL Guidelines: <40 Undesirable 40-59 Borderline >59 DesirablePerformed By: #### CDP, CP, LIP, TROPI, LIPRF, GLYHGB #### [address] [phone] Human Resources Benefits Specialist: NEHAL Mcmanusholesterol in LDL [Mass/Vol]143 mg/dLHigh0-130 [facility]edo HospitalComment on above:Result Comment: LDL Guidelines: <100 Desirable 100-129 Near to/above Desirable 130-159 Borderline >159 Undesirable Direct (measured) LDL and calculated LDL are not interchangeable tests.Performed By: #### CDP, CP, LIP, TROPI, LIPRF, GLYHGB #### [address] [address] Human Resources Benefits Specialist: Chanel Mcmanus.total/Cholesterol in HDL [Mass ratio]4.6 {ratio}Normal<5Toledo HospitalComment on above: Performed By: #### CDP, CP, LIP, TROPI, LIPRF, GLYHGB #### [address] [phone] Human Resources Benefits Specialist: Brandon Anaya MDTriglyceride,Pxrekob432 mg/dLHigh<150Toledo HospitalComment on above:Result Comment: Triglyceride Guidelines: <150 Desirable 150-199 Borderline 200-499 High >499 Very high Based on AHA Guidelines for fasting triglyceride, November 2011.Performed By: #### CDP, CP, LIP, TROPI, LIPRF, GLYHGB #### [facility] [address] [place] [address] [phone] Human Resources Benefits Specialist: NEHAL Mcmanusholesterol in VLDL [Mass/Vol]NOT REPORTEDNormal 1-30Toledo HospitalComment on above:Performed By: #### CDP, CP, LIP, TROPI, LIPRF, GLYHGB #### [employer] [address] [place], [place] [phone] Human Resources Benefits Specialist: Nomi Mcmanusid, Fastingon 23-74-3562Argoglkynaq [Mass/Vol]229 mg/dLHigh<200[place], KYComment on above: Cholesterol Guidelines: <200 Desirable 200-240 Borderline >240 Undesirable Cholesterol in HDL [Mass/Vol]50 mg/dL>40[place], KYComment on above: HDL Guidelines: <40 Undesirable 40-59 Borderline >59 Desirable Cholesterol in LDL [Mass/Vol]143 mg/dLHigh0 - 130 mg/dLEast Wenatchee, [place] Comment on above: LDL Guidelines: <100 Desirable 100-129 Near to/above Desirable 130-159 Borderline >159 Undesirable Direct (measured) LDL and calculated LDL are not interchangeable tests. Cholesterol in VLDL [Mass/Vol]NOT REPORTEDHigh1 - 30 mg/dLEast Wenatchee, [place] Cholesterol.total/Cholesterol in HDL [Mass ratio]4.6 {ratio}<5[place], KYInterpretation and review of laboratory resultsAbnormBelsano, [place] Triglyceride, Navefhm529 mg/dLHigh<150[place], KYComment on above: Triglyceride Guidelines: <150 Desirable 150-199 Borderline 200-499 High >499 Very high Based on AHA Guidelines for fasting triglyceride, November 2011. POC Glucose Fingerstickon 46-44-1913Boyxdxd [Mass/Vol]126 mg/iMNfks76 - 105 mg/dLEast Wenatchee, KYInterpretation and review of laboratory resultsAbnormal [place], KYSARS-CoV-2on 11-62-9362FHTR-CoV-2NormalToledo HospitalComment on above:Performed By: #### COVID #### [employer] [address] [place], [place] [phone] Human Resources Benefits Specialist: FABIANA McmanusARS-CoV-2,RapidNot DetectedNormalNOTDETMercy Sonoma Valley HospitalComment on above:Result Comment: Rapid NAAT: The [...] management decisions. Fact sheet for Healthcare Providers: https://www.fda.gov/media/460490/download Fact sheet for Patients: https://www.fda.gov/media/035251/download Methodology: Isothermal Nucleic Acid AmplificationPerformed By: #### COVID #### [employer] [address] [place], [place] [phone] Human Resources Benefits Specialist: MAEVE Mcmanus-CoV-2 Source.NASOPHARYNGEAL SWABNormalToledo HospitalComment on above:Performed By: #### COVID #### [employer] [address] [place] [address] Human Resources Benefits Specialist: Abimael Mcmanus 25-40-2348Jrzhjlqz I.cardiac [Mass/Vol]10 ng/LNormal0-14Toledo HospitalComment on above: Result Comment: High Sensitivity Troponin values cannot be compared with other Troponin methodologies. Patients with high levels of Biotin oral intake (i.e >5mg/day) may have falsely decreased Troponin levels. Samples collected within 8 hours of biotin intake may require additional information for diagnosis.Performed By: #### TROPI, BH #### [employer] [address] [place] [address] Human Resources Benefits Specialist: Brennan Mcmanus I.cardiac [Mass/Vol]NOT REPORTEDNormal <0.03Toledo HospitalComment on above:Performed By: #### TROPI, #### [facility] [address] [place], [place] [phone] Human Resources Benefits Specialist: Brennan Mcmanus I.cardiac [Mass/Vol]10 ng/LNormal0-14 [facility]edo HospitalComment on above:Result Comment: High Sensitivity Troponin values cannot be compared with other Troponin methodologies. Patients with high levels of Biotin oral intake (i.e >5mg/day) may have falsely decreased Troponin levels. Samples collected within 8 hours of biotin intake may require additional information for diagnosis.Performed By: #### CDP, CP, LIP, TROPI, LIPRF, GLYHGB #### [employer] [facility] [place], [place] [phone] Human Resources Benefits Specialist: Brennan Mcmanus I.cardiac [Mass/Vol]NOT REPORTEDMercy Health- [place], KYTroponin T.cardiac [Mass/Vol]NOT REPORTED<0.03 ng/mLMercy Health- [place], KYTroponin, High Tvjfzbucmbd79 ng/L0 - 14 ng/LMercy Health- [place], KYComment on above: High Sensitivity Troponin values cannot be compared with other Troponin methodologies. Patients with high levels of Biotin oral intake (i.e >5mg/day) may have falsely decreased Troponin levels. Samples collected within 8 hours of biotin intake may require additional information for diagnosis. Troponin I.cardiac [Mass/Vol]NOT REPORTEDNormal<0.03Toledo HospitalComment on above:Performed By: #### CDP, CP, LIP, TROPI, LIPRF, GLYHGB #### [facility] [address] [place], [place] [phone] Human Resources Benefits Specialist: Brennan Mcmanus I.cardiac [Mass/Vol]NOT REPORTEDMercy Health- [place], KYTroponin T.cardiac [Mass/Vol]NOT REPORTED<0.03 ng/mLMercy Health- [place], KYTroponin, High Qghecflubyy45 ng/L0 - 14 ng/LMercy Health- [place], KYComment on above: High Sensitivity Troponin values cannot be compared with other Troponin methodologies. Patients with high levels of Biotin oral intake (i.e >5mg/day) may have falsely decreased Troponin levels. Samples collected within 8 hours of biotin intake may require additional information for diagnosis. UA w/Reflex Cultureon [id number] Acid,UrTRACEAbnormalNEGMercy Sonoma Valley HospitalComment on above:Performed By: #### CDP, CP, LIP, TROPI, LIPRF, GLYHGB #### [facility] [address] [place] [address] Human Resources Benefits Specialist: Brandon Anaya MDBilirubin, SemiQt,UrNegativeNormalNEGToledo HospitalComment on above:Performed By: #### CDP, CP, LIP, TROPI, LIPRF, GLYHGB #### [facility] [address] [place] [address]27 Human Resources Benefits Specialist: NEHAL Mcmanusolor (U)YELLOWNormalYELMerGlendale Memorial Hospital and Health CenterComment on above:Performed By: #### CDP, CP, LIP, TROPI, LIPRF, GLYHGB #### [employer] [address] [place] [address] Human Resources Benefits Specialist: Brandon Anaya MDGlucose Ql (U)NegativeNormalNEGToledo HospitalComment on above:Performed By: #### CDP, CP, LIP, TROPI, LIPRF, GLYHGB #### [facility] [address] [place] [address] Human Resources Benefits Specialist: Brandon Anaya MDHemoglobin, UrNegativeNormalNEGToledo HospitalComment on above:Performed By: #### CDP, CP, LIP, TROPI, LIPRF, GLYHGB #### [facility] [address] [place] [address] Human Resources Benefits Specialist: Brandon Anaya MDLeukocyte esterase Test strip Ql (U)Negative NormalNEGToledo HospitalComment on above:Performed By: #### CDP, CP, LIP, TROPI, LIPRF, GLYHGB #### [facility] [address] [place] [address] Human Resources Benefits Specialist: Power Mcmanusite,UrNegativeNormalNEGToledo HospitalComment on above:Performed By: #### CDP, CP, LIP, TROPI, LIPRF, GLYHGB #### [facility] [address] [place] [address] Human Resources Benefits Specialist: Brandon Anaya [facility] (U)5.5 [pH]Normal5.0-8.0Toledo HospitalComment on above:Performed By: #### CDP, CP, LIP, TROPI, LIPRF, GLYHGB #### [facility] [address] [place] [address] Human Resources Benefits Specialist: BLADIMIR Mcmanusbayonne medical center Ql (U)1+AbnormalNEGToledo HospitalComment on above:Performed By: #### CDP, CP, LIP, TROPI, LIPRF, GLYHGB #### [facility] [address] [place] [address] Human Resources Benefits Specialist: FABIANA Mcmanuspecific gravity (U) [Rel density]1.086High 1.005-1.030Toledo HospitalComment on above:Performed By: #### CDP, CP, LIP, TROPI, LIPRF, GLYHGB #### [facility] [address] [place] [address] Human Resources Benefits Specialist: GODWIN McmanusurbidityCLEARNormalCLEARToledo HospitalComment on above:Performed By: #### CDP, CP, LIP, TROPI, LIPRF, GLYHGB #### [facility] [address] [place] [address] Human Resources Benefits Specialist: Richar Mcmanusinogen,UrNormalNormalNORMToledo HospitalComment on above:Performed By: #### CDP, CP, LIP, TROPI, LIPRF, GLYHGB #### [employer] [address] [place], [place] [phone] Human Resources Benefits Specialist: Cachorro Mcmanus REPORTEDNoalToledo HospitalComment on above:Performed By: #### CDP, CP, LIP, TROPI, LIPRF, GLYHGB #### [employer] [address] [place], [place] [phone] Human Resources Benefits Specialist: Brandon Anaya MDURINALYSIS, MICROon [id number], UANOT REPORTEDNoneMercy Health- [place], KYBacteria, UANOT REPORTEDNoneMercy [...] [place], [place]-[facility]- [place], KYUS ABDOMEN LIMITEDon [id number] ABDOMEN LIMITED EXAMINATION: RIGHT UPPER QUADRANT ULTRASOUND 10/09/2019 3:35 pm COMPARISON: None. 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 LIVER, GALLBLADDER, PANCREASon [id number]: RIGHT UPPER QUADRANT ULTRASOUND 10/09/2019 3:35 pm COMPARISON: None. 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 IMPRESSION: Unremarkable right upper quadrant ultrasound. [facility]- [place], KYUrinalysis Reflex to Cultureon [id number] Urine NegativeNEGATIVEMercy Health- [place], KYColor, UAYELLOWYELLOWMercy Health- [place], [place] Glucose, UrNegativeNEGATIVEMercy Health- [place], KYInterpretation and review of laboratory resultsAbnormalMercy Health- [place], KYKetones Ql (U)TRACEAbnormal NEGATIVEMercy Health- [place], KYLeukocyte esterase Test strip Ql (U)NegativeNEGATIVE [facility]- [place], KYNitrite, UrineNegativeNEGATIVEMercy Health- [place], KYpH, UA5.5 [facility]- [place], KYProtein (U) [Mass/Vol]1+AbnormalNEGATIVEMercy Health- [place], [place] Specific [place], UA1.086HighMercy Health- [place], KYTurbidity UACLEARCLEARMercy Health- [place], KYUrinalysis CommentsNOT REPORTEDMercy Health- [place], KYUrine Hgb NegativeNEGATIVEMercy Health- [place], KYUrobilinogen, UrineNormalNormalMercy Health- [place], KYUrinalysis,Microon 10-09-2019-----NormalSelect Medical Specialty Hospital - Youngstowncy [facility] Comment on above:Performed By: #### CDP, CP, LIP, TROPI, LIPRF, GLYHGB #### [employer] [address] [place] [address] Human Resources Benefits Specialist: Brandon Anaya MDEpithelial cells LM.HPF (Urine sed) [#/Area]10 TO 48Vrehvl8-4HnxwlToledo HospitalComment on above:Performed By: #### CDP, CP, LIP, TROPI, LIPRF, GLYHGB #### [employer] [address] [place] [address] Human Resources Benefits Specialist: DREW McmanusBC (U) [#/Vol]0 TO 9Qgdxry5-4Jxzlx [facility] Valley HospitalComment on above:Performed By: #### CDP, CP, LIP, TROPI, LIPRF, GLYHGB #### [employer] [address] [place] [address] Human Resources Benefits Specialist: Brandon Anaya MDWBC (U) [#/Vol]0 TO 4Aannqp6-0Jqljr [facility] Valley HospitalComment on above:Performed By: #### CDP, CP, LIP, TROPI, LIPRF, GLYHGB #### [facility] [address] [place] [address] Human Resources Benefits Specialist: Kian Mcmanushoumichelle sediment LM Ql (Urine sed)NOT REPORTED NormalNONEMercy Sonoma Valley HospitalComment on above:Performed By: #### CDP, CP, LIP, TROPI, LIPRF, GLYHGB #### [facility] [address] [place] [address] Human Resources Benefits Specialist: Rita Mcmanus LM.HPF (Urine sed) [#/Area]NOT REPORTED NormalNONEMeLos Alamitos Medical CenterComment on above:Performed By: #### CDP, CP, LIP, TROPI, LIPRF, GLYHGB #### [facility] [address] [place] [address] Human Resources Benefits Specialist: Maria Elena Mcmanus LM.LPF (Urine sed) [#/Area]NOT REPORTED Normal0-2Mercy [facility] Valley HospitalComment on above:Performed By: #### CDP, CP, LIP, TROPI, LIPRF, GLYHGB #### [employer] [address] [place] [address] Human Resources Benefits Specialist: NEHAL Mcmanusrystals LM Nom (Urine sed)NOT REPORTEDNormal NONEMercy Sonoma Valley HospitalComment on above:Performed By: #### CDP, CP, LIP, TROPI, LIPRF, GLYHGB #### [employer] [address] [place] [address] Human Resources Benefits Specialist: Brandon Anaya MDEpithelial, RenalNOT PTQSOAVVJnjpfk3Npzuq Sonoma Valley HospitalComment on above:Performed By: #### CDP, CP, LIP, TROPI, LIPRF, GLYHGB #### [facility] [address] [place] [address] Human Resources Benefits Specialist: LIZZY Mcmanusucus StrandsNOT REPORTEDNormalNONGreene Memorial HospitalComment on above:Performed By: #### CDP, CP, LIP, TROPI, LIPRF, GLYHGB #### [facility] [address] [place] [address] Human Resources Benefits Specialist: Brandon Anaya MDOther ObservationsNOT REPORTEDNormalNREQMerGlendale Memorial Hospital and Health CenterComment on above:Performed By: #### CDP, CP, LIP, TROPI, LIPRF, GLYHGB #### [facility] [address] [place] [address] Human Resources Benefits Specialist: Grant McmanushomonasNOT REPORTEDGerman HospitalComment on above:Performed By: #### CDP, CP, LIP, TROPI, LIPRF, GLYHGB #### [facility] [address] [place] [address] Human Resources Benefits Specialist: Donna Mcmanus LM Ql (Urine sed)NOT REPORTEDNormalHONORHEALTH DEER VALLEY MEDICAL CENTERE Toledo HospitalComment on above:Performed By: #### CDP, CP, LIP, TROPI, LIPRF, GLYHGB #### [facility] [address] [place] [address] Human Resources Benefits Specialist: LORIE Mcmanus ABDOMEN (KUB) (SINGLE AP VIEW)on [id number] ABDOMEN (KUB) (SINGLE AP VIEW)EXAMINATION: ONE SUPINE [...] Signed by: Naga Browning MD 10/09/19 Final resultNormLima Memorial HospitalNo evidence of bowel obstruction.[facility] HospitalCLARAEXAMINATION: ONE SUPINE XRAY VIEW(S) OF THE ABDOMEN 10/09/2019 7:17 pm COMPARISON: None. HISTORY: ORDERING SYSTEM PROVIDED HISTORY: r/o SBO TECHNOLOGIST PROVIDED HISTORY: r/o SBO Reason for Exam: port Supine FINDINGS: Nonspecific, nonobstructive bowel gas pattern with paucity of bowel gas. Atherosclerotic calcifications. Retained contrast in the urinary bladder. No acute osseous abnormality.[facility] HospitalRadha Mhpn Incoming Radiant Results From [employer] - 10/09/2019 7:35 PM EDT EXAMINATION: ONE [...] abnormality. IMPRESSION: No evidence of bowel obstruction. Newark HospitalCLARAAldosteroneon [id number] ng/dLNoPremier Health Miami Valley Hospital SouthComment on above:Result Comment: (NOTE)INTERPRETIVE INFORMATION: Aldosterone, SerumReference [...] c referenceintervals for this test in the [employer] [facility] Test Directory([employer]).Performed by [facility],[address] [place] [phone] duf.[employer], Nik Rosas MD, Lab.DirectorPerformed at [facility] [address] [place] [address] Performed By: #### AG ####[facility] [address] [place] [address] #### AALD, AREN ####[facility] [place] [address] Renin Activityon 82-58-2123Hizkw Activity0.1 ng/mL/hrNormCoshocton Regional Medical CenterComment on above:Result Comment: (NOTE)INTERPRETIVE INFORMATION: Renin ActivityAdult, [...] activity when angiotensinogen isdecreased.See Compliance Statement D: [email or web address] by [facility] [place] [address] kdq.[employer], Nik Rosas MD, Lab. DirectorPerformed at [address] [address] ([phone] By: #### CORTI ####[address] [place] [address] #### AALD, AREN ####[address] [address] Basic Metab w/rfx MGon 06-29-2017(cont.)NormalCleveland Clinic FoundationComment on above:Result Comment: Average GFR for 70 or more years old: 75 mL/min/1.73sq mChronic Kidney Disease: <60 mL/min/1.73sq mKidney failure: <15 mL/min/1.73sq meGFR calculated using average adult body mass. Additional eGFR calculator available at:http://www.Orderlord.com/multiple_crcl_2012.htmPerformedat [address] [address] ([phone] By: #### CDP, BMPX, TROPI ####[address] [address] Anion gap10 mmol/LNormal9-17[facility] FoundationComment on above:Performed By: #### CDP, BMPX, TROPI ####[address] [address] Emmodxg7.1 mg/dLNormal8.6-10.4[facility] FoundationComment on above:Performed By: #### CDP, BMPX, TROPI ####[address] [address] Tovxxaqi912 mmol/MFlxeym75-370JxqqgKettering Health DaytonComment on above:Performed By: #### CDP, BMPX, TROPI ####[address] [address] GN041 mmol/JCzgtrt02-23JhfvsCleveland Clinic FoundationComment on above:Performed By: #### CDP, BMPX, TROPI ####[address] [address] Jdqeozprdd8.66 mg/dLNormal0.50-0.90 [facility] FoundationComment on above:Performed By: #### CDP, BMPX, TROPI ####[address] [address] eGFR (non-black)mL/min/{1.73_m2}Normal>60[facility] FoundationComment on above: Performed By: #### CDP, BMPX, TROPI ####[address] [address] Glucose mass rvoj539 mg/cFXmtx20-41Rxjvq [facility] HospitalComment on above:Performed By: #### CDP, BMPX, TROPI ####[address] [address] Potassium molar conc4.1 mmol/LNormal3.7-5.3MMary Rutan HospitalComment on above: Performed By: #### CDP, BMPX, TROPI ####[address] [phone] mmol/IMphpkl275-139BkaskCleveland Clinic FoundationComment on above:Performed By: #### CDP, BMPX, TROPI ####[address] [address] Urea jicgljli62 mg/dLNormal8-23[facility] FoundationComment on above:Performed By: #### CDP, BMPX, TROPI ####[address] [address] BUN/CRE RatioNOT REPORTEDNormal9-20[facility] Comment on above:Performed By: #### CDP, BMPX, TROPI ####[address] [phone]:NOT REPORTEDNormal [facility] FoundationComment on above:Performed By: #### CDP, BMPX, TROPI ####[address] [phone] with Diffon 84-21-2928Ffb. Basophil0.00 k/uLNormal0.0-0.2MMary Rutan HospitalComment on above:Result Comment: Performed at [address] [address] [phone] By: #### CDP, BMPX, TROPI ####[address] [phone].Neutrophil (Seg)3.80 k/uLNormal1.3-9.1MMary Rutan Hospital Comment on above:Performed By: #### CDP, BMPX, TROPI ####[address] [address] Basophils/100 WBC Auto (Bld)1 %Normal0-2[facility] Memorial HospitalComment on above:Performed By: #### CDP, BMPX, TROPI ####[address] [address] Sfcxjzvrzqt1.20 10*3/uLNormal0.0-0.4[facility] Comment on above:Performed By: #### CDP, BMPX, TROPI ####[address] [address] Eosinophils/100 leukocytes 2 %Normal0-4[facility] FoundationComment on above:Performed By: #### CDP, BMPX, TROPI ####[address] [phone] distribution width Auto Ratio (RBC)14.5 %Fmdajx02.5-14.9 [facility] FoundationComment on above:Performed By: #### CDP, BMPX, TROPI ####[address] [address] Erythrocytes (RBC)4.36 10*6/uLNormal4.0-5.2[facility] Memorial HospitalComment on above:Performed By: #### CDP, BMPX, TROPI ####[address] [address] Hematocrit (HCT)38.3 %Xtgfii83-88ZzsrcCleveland Clinic FoundationComment on above:Performed By: #### CDP, BMPX, TROPI ####[address] [address] Hemoglobin mass conc (Bld)12.9 g/gQRnuhyn74.0-16.0[facility] Comment on above:Performed By: #### CDP, BMPX, TROPI ####[address] [address] Effrjkzjvkc4.20 10*3/uL Normal1.0-4.8[facility] FoundationComment on above:Performed By: #### CDP, BMPX, TROPI ####[address] [phone]/100 isrqxebyjg51 %Aamtzm08-26HvzeuCleveland Clinic Foundation Comment on above:Performed By: #### CDP, BMPX, TROPI ####[address] [address] XVN90.5 lyMrknjs93-77OzojsCleveland Clinic FoundationComment on above:Performed By: #### CDP, BMPX, TROPI ####[address] [address] MCHC mass conc (RBC)33.6 g/dXSpzhyc43-10ZkgpgKettering Health DaytonComment on above: Performed By: #### CDP, BMPX, TROPI ####[address] [address] KGT37.8 xEUticoa92-698UkvwpCleveland Clinic FoundationComment on above:Performed By: #### CDP, BMPX, TROPI ####[address] [address] Cgjwappbd9.50 10*3/uLNormal0.1-1.3MMary Rutan HospitalComment on above:Performed By: #### CDP, BMPX, TROPI ####[address] [address] Monocytes/100 leukocytes8 %High1-7[facility] Comment on above:Performed By: #### CDP, BMPX, TROPI ####[address] [place] [address] Neutrophil (Seg)57 %Normal 36-66[facility] FoundationComment on above:Performed By: #### CDP, BMPX, TROPI ####[address] [phone] mean volume (PMV)8.5 fLNormal6.0-12.0[facility] FoundationComment on above:Performed By: #### CDP, BMPX, TROPI ####[address] [address] Fltyzwbqv438 10*3/mBZbwnen633-054EzgkpKettering Health DaytonComment on above:Performed By: #### CDP, BMPX, TROPI ####[address] [address] WBC (Leukocytes)6.7 10*3/uLNormal3.5-11.0[facility] FoundationComment on above:Performed By: #### CDP, BMPX, TROPI ####[address] [address] Auto Diff PerformedNOT REPORTEDNoPremier Health Miami Valley Hospital SouthCommunson healthcare [facility] on above:Performed By: #### CDP, BMPX, TROPI ####[address] [address] Erythrocyte morphologyNOT REPORTEDMarion HospitalCommunson healthcare [facility] hospital on above:Performed By: #### CDP, BMPX, TROPI ####[address] [address] Erythrocytes (RBC) NOT REPORTEDNoPremier Health Miami Valley Hospital SouthComment on above:Performed By: #### CDP, BMPX, TROPI ####[facility] [address] Granulocytes/100 WBC (Bld)NOT REPORTEDNormal0.00-0.30[facility] on above:Performed By: #### CDP, BMPX, TROPI ####[address] [address] Immature granulocytes #/vol (Bld)NOT UHPVKESHPcecvs4OtrkcCleveland Clinic FoundationCommunson healthcare [facility] hospital on above:Performed By: #### CDP, BMPX, TROPI ####[address] [address] PlateletsNOT REPORTEDNoPremier Health Miami Valley Hospital SouthCommunson healthcare [facility] on above:Performed By: #### CDP, BMPX, TROPI ####[address] [phone] Morphology NOT REPORTEDNormalCleveland Clinic FoundationCommunson healthcare [facility] on above:Performed By: #### CDP, BMPX, TROPI ####[address] [address] Troponinon 63-79-7573Gujwgxou I.cardiac mass concNormalThe [facility] on above:Result Comment: Reference Range: <0.03 Within reference range. 0.03-0.09 Possible myocardial damage.Repeat at appropriate intervals to rule out chronic elevation. >= 0.10 Indicative of myocardial damage.Patients with high levels of Biotin oral intake (i.e >5mg/day) may have falsely decreased Troponin T levels. Samples collected within 8 hours of biotin intake may require additional information for diagnosis.Performed at [address] [address] [phone] By: #### CDP, BMPX, TROPI ####[address] [phone] T.cardiac mass concug/LNormal<0.03[facility] FoundationComment on above:Result Comment: Troponin T results cannot be compared to Troponin-I results.Performed By: #### CDP, BMPX, TROPI ####[address] [address] Troponin I.cardiac mass concNormalMerKettering Health Dayton Comment on above:Result Comment: Reference Range: <0.03 Within reference range. 0.03-0.09 Possible myocardial damage.Repeat at appropriate intervals to rule out chronic elevation. >= 0.10 Indicative of myocardial damage.Patients with high levels of Biotin oral intake (i.e >5mg/day) may have falsely decreased Troponin T levels. Samples collected within 8 hours of biotin intake may require additional information for diagnosis.Performed at [address] [address] ([phone] By: #### TROPI ####[address] [address] Troponin T.cardiac mass concug/LNormal<0.03[facility] FoundationComment on above:Result Comment: Troponin T results cannot be compared to Troponin-I results.Performed By: #### TROPI ####[address] [address] XR CHEST (2 VW)on [id number] CHEST (2 VW)EXAMINATION:TWO VIEWS OF THE CHEST, [...] acute cardiopulmonary findings.Interpreted by:FABIANA Oliverigned by:Zaire Dominguez MD06/29/18Final resultNormalMerKettering Health Dayton Basic Metab w/rfx MGon 06-28-2017(cont.)NormalMerKettering Health DaytonComment on above:Result Comment: Average GFR for 70 or more years old: 75 mL/min/1.73sq mChronic Kidney Disease: <60 mL/min/1.73sq mKidney failure: <15 mL/min/1.73sq meGFR calculated using average adult body mass. Additional eGFR calculator available at:http://www.Clutter/multiple_crcl_2011.htmPerformedat [address] [address] Performed By: #### CDP, BMPX ####[address] [address] Anion gap13 mmol/LNormal9-17MerKettering Health DaytonComment on above:Performed By: #### CDP, BMPX ####[address] [address] Pxxgkia1.7 mg/dLNormal 8.6-10.4[facility] FoundationCommunson healthcare [facility] on above:Performed By: #### CDP, BMPX ####[address] [address] Otbcwjep105 mmol/EKubowi90-468KjitlKettering Health DaytonCommunson healthcare [facility] hospital on above: Performed By: #### CDP, BMPX ####[address] [address] JY354 mmol/UDmiyfi55-30JhidqCleveland Clinic FoundationComment on above:Performed By: #### CDP, BMPX ####[address] [place] [address] Hgvbgvzpcz3.53 mg/dLNormal 0.50-0.90[facility] FoundationComment on above:Performed By: #### CDP, BMPX ####[address] [address] eGFR (non-black)mL/min/{1.73_m2}Normal>60[facility] FoundationComment on above:Performed By: #### CDP, BMPX ####[address] [address] Glucose mass zjpp375 mg/kWEqnl38-13SideaMary Rutan HospitalComment on above:Performed By: #### CDP, BMPX ####[address] [address] Potassium molar conc3.7 mmol/LNormal3.7-5.3MMary Rutan HospitalComment on above:Performed By: #### CDP, BMPX ####[address] [address] Nmrtkj895 mmol/TXvoxsp722-811BeqszCleveland Clinic FoundationComment on above:Performed By: #### CDP, BMPX ####[address] [address] Urea oihpgmcb55 mg/dLNormal8-23[facility] FoundationComment on above:Performed By: #### CDP, BMPX ####[address] [address] BUN/CRE RatioNOT REPORTEDNormal9-20[facility] FoundationComment on above:Performed By: #### CDP, BMPX ####[address] [address] Staging:NOT REPORTEDNormalMerMid Missouri Mental Health CenterCastella HospitalComment on above:Performed By: #### CDP, BMPX ####[address] [address] Basic Metabolic Profon 06-28-2017(cont.)Normal [facility] FoundationComment on above:Result Comment: Average GFR for 70 or more years old: 75 mL/min/1.73sq mChronic Kidney Disease: <60 mL/min/1.73sq mKidney failure: <15 mL/min/1.73sq meGFR calculated using average adult body mas s. Additional eGFR calculator available at:http://www.Clutter/multiple_crcl_2012.htmPerformedat [address] [address] Performed By: #### CDP, BMP, TROPI, TSHX ####[address] [address] Anion gap13 mmol/LNormal9-17[facility] FoundationComment on above:Performed By: #### CDP, BMP, TROPI, TSHX ####[address] [address] Inqqrkd8.2 mg/dL Normal8.6-10.4[facility] FoundationCommunson healthcare [facility] on above:Performed By: #### CDP, BMP, TROPI, TSHX ####[address] [address] Mxrsytfh102 mmol/ALjhttm96-673TakxxCleveland Clinic FoundationComment on above:Performed By: #### CDP, BMP, TROPI, TSHX ####[address] [address] XB370 mmol/RFbzxon91-54 [facility] FoundationComment on above:Performed By: #### CDP, BMP, TROPI, TSHX ####[address], [place] [address] Aiuhmwxwsm9.61 mg/dLNormal0.50-0.90[facility] Comment on above:Performed By: #### CDP, BMP, TROPI, TSHX ####[address] [place] [address] eGFR (non-black) mL/min/{1.73_m2}Normal>60[facility] HospitalComment on above:Performed By: #### CDP, BMP, TROPI, TSHX ####[address] [address] Glucose mass pfjl315 mg/jUWpqn19-81Bgbid [facility] HospitalComment on above:Performed By: #### CDP, BMP, TROPI, TSHX ####[address] [address] Potassium molar conc4.7 mmol/LNormal3.7-5.3[facility] HospitalComment on above:Performed By: #### CDP, BMP, TROPI, TSHX ####[address] [address] Rhxrme588 mmol/LNormal 135-144MerKettering Health DaytonComment on above:Performed By: #### CDP, BMP, TROPI, TSHX ####[address] [address] Urea mebgsfgb85 mg/dLNormal8-23[facility] Comment on above:Performed By: #### CDP, BMP, TROPI, TSHX ####[address] [address] BUN/CRE RatioNOT REPORTED Normal9-20[facility] HospitalComment on above:Performed By: #### CDP, BMP, TROPI, TSHX ####[address] [phone]:NOT REPORTEDNormalMercy Mercy Memorial HospitalComment on above:Performed By: #### CDP, BMP, TROPI, TSHX ####[address] [address] CBC with Diffon 06-28-2017 Abs. Basophil0.00 k/uLNormal0.0-0.2[facility] Castella HospitalComment on above: Result Comment: Performed at [address] [address] Performed By: #### CDP, BMPX ####[address] [address] Abs.Neutrophil (Seg)5.50 k/uLNormal1.3-9.1[facility] HospitalComment on above:Performed By: #### CDP, BMPX ####[address] [address] Basophils/100 WBC Auto (Bld)1 %Normal0-2[facility] HospitalComment on above:Performed By: #### CDP, BMPX ####[address] [address] Iifnpmogozf4.10 10*3/uL Normal0.0-0.4MerKettering Health DaytonComment on above:Performed By: #### CDP, BMPX ####[address] [phone]/100 leukocytes2 %Normal0-4MerKettering Health DaytonComment on above:Performed By: #### CDP, BMPX ####[address] [address] Erythrocyte distribution width Auto Ratio (RBC) 14.8 %Cmscon69.5-14.9[facility] FoundationComment on above:Performed By: #### CDP, BMPX ####[address] [address] Erythrocytes (RBC)4.47 10*6/uLNormal4.0-5.2[facility] HospitalComment on above:Performed By: #### CDP, BMPX ####[address] [address] Hematocrit (HCT)39.8 % Xbjton03-99AjmupCleveland Clinic FoundationComment on above:Performed By: #### CDP, BMPX ####[address] [phone] mass conc (Bld)13.3 g/iLNwytex55.0-16.0[facility] FoundationComment on above:Performed By: #### CDP, BMPX ####[address] [address] Lgaynpifgld2.90 10*3/uL Normal1.0-4.8[facility] FoundationCommunson healthcare [facility] on above:Performed By: #### CDP, BMPX ####[address] [phone]/100 ydnyfjwhbh88 %Tcb92-62IyvsgCleveland Clinic FoundationComment on above:Performed By: #### CDP, BMPX ####[address] [address] DHD72.7 hqUemvug25-38AgofpCleveland Clinic Foundation Comment on above:Performed By: #### CDP, BMPX ####[address] [address] MCHC mass conc (RBC)33.3 g/dLNormal 31-37[facility] FoundationComment on above:Performed By: #### CDP, BMPX ####[address] [address] MCV 89.1 lRYvoqmk78-867MmisoCleveland Clinic FoundationComment on above:Performed By: #### CDP, BMPX ####[address] [address] Faotpsvnx1.50 10*3/uLNormal0.1-1.3MMary Rutan Hospital Comment on above:Performed By: #### CDP, BMPX ####[address] [address] Monocytes/100 leukocytes6 %Normal1-7 [facility] FoundationComment on above:Performed By: #### CDP, BMPX ####[address] [address] Neutrophil (Seg)68 %Slrs04-43FnxlcCleveland Clinic FoundationComment on above: Performed By: #### CDP, BMPX ####[address] [address] Platelet mean volume (PMV)8.6 fLNormal6.0-12.0 [facility] FoundationComment on above:Performed By: #### CDP, BMPX ####[address] [address] Bsivtzjww856 10*3/tPAcvxnz145-582EdmfwCleveland Clinic FoundationComment on above: Performed By: #### CDP, BMPX ####[address] [address] WBC (Leukocytes)8.0 10*3/uLNormal3.5-11.0[facility] FoundationComment on above:Performed By: #### CDP, BMPX ####[address] [address] Auto Diff PerformedNOT REPORTEDNormalThe [facility] on above:Performed By: #### CDP, BMPX ####[address] [address] Erythrocyte morphologyNOT REPORTEDNormalCleveland Clinic FoundationCommunson healthcare [facility] on above:Performed By: #### CDP, BMPX ####[address] [address] Erythrocytes (RBC)NOT REPORTEDNormalCleveland Clinic FoundationComment on above:Performed By: #### CDP, BMPX ####[address] [phone]/100 WBC (Bld)NOT REPORTEDNormal0.00-0.30[facility] FoundationComment on above:Performed By: #### CDP, BMPX ####[address] [address] Immature granulocytes #/vol (Bld)NOT QCXPNGSMMcanxb5PelnhCleveland Clinic FoundationCommunson healthcare [facility] on above: Performed By: #### CDP, BMPX ####[address] [address] PlateletsNOT REPORTEDNormalCleveland Clinic FoundationCommunson healthcare [facility] on above:Performed By: #### CDP, BMPX ####[address] [address] WBC MorphologyNOT REPORTED NormalCleveland Clinic FoundationCommunson healthcare [facility] on above:Performed By: #### CDP, BMPX ####[address] [address] Abs. Basophil0.10 k/uLNormal0.0-0.2[facility] HospitalComment on above:Result Comment: Performed at [address] [address] Performed By: #### CDP, BMP, TROPI, TSHX ####[address] [address] Abs.Neutrophil (Seg)4.20 k/uLNormal1.3-9.1[facility] HospitalComment on above:Performed By: #### CDP, BMP, TROPI, TSHX ####[address] [address] Basophils/100 WBC Auto (Bld)1 %Normal0-2[facility] HospitalComment on above:Performed By: #### CDP, BMP, TROPI, TSHX ####[address] [address] Yzhofxbkhyy4.20 10*3/uLNormal0.0-0.4[facility] Comment on above:Performed By: #### CDP, BMP, TROPI, TSHX ####[address] [address] Eosinophils/100 leukocytes 2 %Normal0-4[facility] FoundationComment on above:Performed By: #### CDP, BMP, TROPI, TSHX ####[address] [address] Erythrocyte distribution width Auto Ratio (RBC)14.7 %Normal 11.5-14.9[facility] FoundationComment on above:Performed By: #### CDP, BMP, TROPI, TSHX ####[address] [address] Erythrocytes (RBC)4.38 10*6/uLNormal4.0-5.2[facility] HospitalComment on above:Performed By: #### CDP, BMP, TROPI, TSHX ####[address] [address] Hematocrit (HCT) 38.7 %Vvxqfz85-61GewpwCleveland Clinic FoundationComment on above:Performed By: #### CDP, BMP, TROPI, TSHX ####[address] [address] Hemoglobin mass conc (Bld)12.9 g/kQMohami63.0-16.0[facility] FoundationComment on above:Performed By: #### CDP, BMP, TROPI, TSHX ####[address] [address] Lymphocytes2.60 10*3/uLNormal1.0-4.8MerKettering Health DaytonComment on above: Performed By: #### CDP, BMP, TROPI, TSHX ####[address] [address] Lymphocytes/100 qartzzzinr72 %Normal 24-44MerKettering Health DaytonComment on above:Performed By: #### CDP, BMP, TROPI, TSHX ####[address] [address] VFO68.6 mwGlzgff70-60IldgeKettering Health DaytonComment on above:Performed By: #### CDP, BMP, TROPI, TSHX ####[address] [address] MCHC mass conc (RBC)33.4 g/iTYcmzzb13-63SatifKettering Health DaytonComment on above:Performed By: #### CDP, BMP, TROPI, TSHX ####[address] [address] PYP08.4 xPFftoqh71-336VkljjCleveland Clinic FoundationComment on above:Performed By: #### CDP, BMP, TROPI, TSHX ####[address] [address] Krurrxyjq4.60 10*3/uL Normal0.1-1.3MMary Rutan HospitalComment on above:Performed By: #### CDP, BMP, TROPI, TSHX ####[address] [address] Monocytes/100 leukocytes8 %High1-7[facility] Comment on above:Performed By: #### CDP, BMP, TROPI, TSHX ####[address] [address] Neutrophil (Seg)55 %Normal 36-66[facility] FoundationComment on above:Performed By: #### CDP, BMP, TROPI, TSHX ####[address] [address] Platelet mean volume (PMV)8.6 fLNormal6.0-12.0[facility] FoundationCommunson healthcare [facility] on above:Performed By: #### CDP, BMP, TROPI, TSHX ####[address] [address] Uabbuctvv361 10*3/dRBmcckp686-651FgqcpCleveland Clinic FoundationComment on above:Performed By: #### CDP, BMP, TROPI, TSHX ####[address] [address] WBC (Leukocytes)7.7 10*3/uLNormal3.5-11.0[facility] FoundationComment on above:Performed By: #### CDP, BMP, TROPI, TSHX ####[address] [address] Auto Diff PerformedNOT REPORTEDNormalSelect Medical Specialty Hospital - Youngstowncy [facility] HospitalCommunson [facility] on above: Performed By: #### CDP, BMP, TROPI, TSHX ####[address] [address] Erythrocyte morphologyNOT REPORTED NormalCleveland Clinic FoundationCommunson healthcare [facility] on above:Performed By: #### CDP, BMP, TROPI, TSHX ####[address] [address] Erythrocytes (RBC)NOT REPORTEDNormalTrinity Health System on above:Performed By: #### CDP, BMP, TROPI, TSHX ####[address] [address] Granulocytes/100 WBC (Bld) NOT REPORTEDNormal0.00-0.30[facility] on above:Performed By: #### CDP, BMP, TROPI, TSHX ####[address] [address] Immature granulocytes #/vol (Bld)NOT REPORTED Rbktaq1SppqgThe [facility] on above:Performed By: #### CDP, BMP, TROPI, TSHX ####[address] [address] PlateletsNOT REPORTEDNormalCleveland Clinic FoundationComment on above:Performed By: #### CDP, BMP, TROPI, TSHX ####[address] [address] WBC MorphologyNOT REPORTED NormalThe [facility] on above:Performed By: #### CDP, BMP, TROPI, TSHX ####[address] [place] [address] [phone] 87-92-0066Ocknylez3.7 ug/dLNormal2.7-18.4C[facility] Clinic FoundationComment on above:Result Comment: Cortisol Reference Range: AM 6.0-18.4 PM 2.7-10.5Performed at [address] [address] Performed By: #### CORTI ####[address] [address] #### AALD, AREN ####[address] [address] Collection Info.NOT REPORTEDNormalCleveland Clinic FoundationComment on above:Performed By: #### CORTI ####[address] [address] #### AALD, AREN ####[address] [address] Renin Activityon 92-25-8631Pajahpc:NOT REPORTEDNormCoshocton Regional Medical CenterComment on above:Performed By: #### CORTI ####[address] [address] #### AALD, AREN ####[address] [address] TSH w/reflex to FT4on 16-37-0602Gyfofda stimulating hormone (TSH)2.65 m[IU]/LNormal 0.30-5.00[facility] FoundationCommunson healthcare [facility] on above:Result Comment: Performed at [address] [address] [phone] By: #### CDP, BMP, TROPI, TSHX ####[address] [phone] 06-28-2017 Troponin I.cardiac mass concNormCoshocton Regional Medical CenterComment on above: Result Comment: Reference Range: <0.03 Within reference range. 0.03-0.09 Possible myocardial damage.Repeat at appropriate intervals to rule out chronic elevation. >= 0.10 Indicative of myocardial damage.Patients with high levels of Biotin oral intake (i.e >5mg/day) may have falsely decreased Troponin T levels. Samples collected within 8 hours of biotin intake may require additional inform ation for diagnosis.Performed at [address] [address] [phone] By: #### TROPI ####[address] [phone] T.cardiac mass concug/LNormal<0.03[facility] Clinic FoundationComment on above:Result Comment: Troponin T results cannot be compared to Troponin-I results.Performed By: #### TROPI ####[address] [phone] I.cardiac mass concNormalCleveland Clinic Foundation Comment on above:Result Comment: Reference Range: <0.03 Within reference range. 0.03-0.09 Possible myocardial damage.Repeat at appropriate intervals to rule out chronic elevation. >= 0.10 Indicative of myocardial damage.Patients with high levels of Biotin oral intake (i.e >5mg/day) may have falsely decreased Troponin T levels. Samples collected within 8 hours of biotin intake may require additional information for diagnosis.Performed at [address] [address] [phone] By: #### TROPI ####[address] [phone] T.cardiac mass concug/LNormal<0.03[facility] on above:Result Comment: Troponin T results cannot be compared to Troponin-I results.Performed By: #### TROPI ####[address] [phone] I.cardiac mass concNormalCleveland Clinic FoundationCommunson healthcare [facility] on above:Result Comment: Reference Range: <0.03 Within reference range. 0.03-0.09 Possible myocardial damage.Repeat at appropriate intervals to rule out chronic elevation. >= 0.10 Indicative of myocardial damage.Patients with high levels of Biotin oral intake (i.e >5mg/day) may have falsely decreased Troponin T levels. Samples collected within 8 hours of biotin intake may require additional information for diagnosis.Performed at [address] [address] [phone] By: #### CDP, BMP, TROPI, TSHX ####[address] [phone] T.cardiac mass concug/LNormal<0.03[facility] on above:Result Comment: Troponin T results cannot be compared to Troponin-I results.Performed By: #### CDP, BMP, TROPI, TSHX ####[address] [phone] w/Reflex Cultureon 19-04-7532Cdcrpgmufofzl mass conc NegativeNormalNEGCleveland Clinic FoundationCommunson healthcare [facility] on above:Performed By: #### UAX ####[address] [address] Bilirubin (direct)NegativeNormalNEGCleveland Clinic FoundationCommunson healthcare [facility] on above: Performed By: #### UAX ####[address] [phone] exam not performed based on chemical results unless requested inNormalMercy Castella HospitalComment on above: Result Comment: original order.Performed at [facility] [address] [place] [address] [phone] By: #### UAX ####[address] [address] Hemoglobin mass conc (Bld)NegativeNormalNEGMercy Mercy Memorial HospitalComment on above: Performed By: #### UAX ####[address] [address] Nitrite,UrNegativeNormalNEGSelect Medical Specialty Hospital - Youngstowncy Mercy Memorial HospitalComment on above:Performed By: #### UAX ####[address] [address] TurbidityCLEARNormalCLEARMerKettering Health DaytonComment on above:Performed By: #### UAX ####[address] [address] Urine, colorYELLOWNormal YELMercLakeHealth Beachwood Medical CenterComment on above:Performed By: #### UAX ####[address] [address] Urine, glucose presenceNegativeNormalNEGSelect Medical Specialty Hospital - Youngstowncy Mercy Memorial HospitalComment on above:Performed By: #### UAX ####[address] [address] Urine, leukocyte esterase presenceNegativeNormalNEGCleveland Clinic FoundationComment on above:Performed By: #### UAX ####[address] [address] Urine, pH5.5 [pH]Normal 5.0-8.0C[facility] Clinic FoundationComment on above:Performed By: #### UAX ####[address] [place] [address] Urine, protein presenceNegativeNormalNEGMerKettering Health DaytonComment on above:Performed By: #### UAX ####[facility] [place] [address] Urine, specific gravity1.617Dtcyto3.000-1.030 [facility] Clinic FoundationComment on above:Performed By: #### UAX ####[facility] [place] [address] Urobilinogen,Ur NormalNormalNORMMerKettering Health DaytonComment on above:Performed By: #### UAX ####[facility] [place] [address] Vital Signs Date TimeVital SignValuePerforming XqriaylotAnxvizfn84-02-4031 10:25-0500Body hwpela002.56 cmLA [employer] Work Phone: [phone] [place], [place] 7867102-13-2024 10:25-0500 Body mass index (BMI) [Ratio]26.7 kg/m2LA [employer] Work Phone: [phone]02-13-2024 10:25-0500 Body xoltxq53.76 kgLA [employer] Work Phone: [phone]08-22-2020 15:45-0400 BP Ogkgjtjje91 mm[Hg][facility], YZ00-95-4788 15:45-0400BP Vaclwpwp365 mm[Hg][facility], SN30-62-2387 08:25-0400Body Taygoiqjytl42.01 [degF][facility], NT66-33-0156 08:25-0400 Pulse (Heart Rate)70 /minCoSt. Anthony's Hospital, BT03-10-4126 08:25-0400 Pulse Mrfzobkq21 %[facility], QC82-52-0351 08:25-0400 Respiratory Rate20 /minCoSt. Anthony's Hospital, QQ96-20-9501 06:15-0400BMI (Body Mass Index)25.51 kg/h9RgxmzngyCape [facility] Medical Center, DU93-28-0475 06:15-0400Body .4 kgCape Fear Valley Medical Center, WD42-14-8237 15:22-9740Nvjtsk635.6 cmCCorey Hospital, UW61-42-0606 16:07-0400 Respiratory rateNOT REPORTEDRANMONMOUTH MEDICAL [facility]ENTER [facility] ([facility])[3] RATHOREMUCSF Benioff Children's [facility] Comment on above:Performed By: #### CDP, CP, LIP, TROPI, LIPRF, GLYHGB #### [facility] [address] [place] [address] Human Resources Benefits Specialist: Brandon Anaya MD08-19-2020 14:24-0400Respiratory rateNOT REPORTEDCoSt. Anthony's Hospital, [place] Encounters Encounter DateEncounter TypeCare ProviderFacilityStart: 12-29-2024 End: 52-37-4250xsslqqelweWoojlh Diab ([facility]MENT[facility] CENTERNehemiah MACIAS Work Phone: -LAB Path Spec [facility] HospStart: 12-29-2024 End: 54-22-0593Waxhtqva Sudhir ThorntonMONSON DEVELOPMENTAL CENTER) -LAB Path Spec [facility] HospStart: 12-22-2024 End: 28-69-7545pytddqzersXZMPH [facility] Campustart: 08-24-2698Xzuonrokpn and management of inpatientMUNIER NAZZALUniversity [facility] – Centennialtart: 08-26-2024 End: 58-84-9000Ptgfasxock and management of inpatientMUNIER NAZZALUniversFisher-Titus Medical Centertart: 08-17-2024 End: 39-76-6232flvwtyidyePdqkpct M HoyFacility:[facility] Start: 08-04-2024 End: 56-75-0069unajpljgwySKVEVA NAZZALUniMercy Health Perrysburg Hospitaltart: 07-22-2024 End: 90-56-7574fkcixqyfteTJXTSWS [facility] Start: 42-83-9205auqpwzinuyJJXBBUniversity Hospitals Geneva Medical Centertart: 78-35-8642ehakugiuvnWXYPDQHUniversity Hospitals Cleveland Medical Centertart: 06-06-2024 End: 41-13-4564ayjcatezcvASDIITOhioHealth Shelby Hospitaltart: 06-06-2024 End: 75-66-5252lvdfiupkkrDIVIXJSycamore Medical Centertart: 05-31-2024 End: 47-46-0569zywfobwwcoIXIBUNKKindred Hospital Lima Start: 05-20-2024 End: 21-79-2160sjiydowbwgPUEDZ A PETITTINot AvailableStart: 05-20-2024 End: 08-36-7871Uusyfy outpatient visit 25 minutesEmily Srinath Red MD Work Phone: noms [facility] DERMComment on above:Other atopic dermatitis (Primary Dx); High risk medication useStart: 05-20-2024 End: 86-13-9900Eqoktl flowsheetEmminerva Red MD Work Phone: noms [facility] DERMStart: 05-20-2024 End: 97-08-5097Azsppz flowsheetEmminerva Red MD Work Phone: noms [facility] DERMStart: 38-77-1947gjpcxlzhavBFHK [facility] Hospitaltart: 05-11-2024 End: 54-09-3457mzazqymrcrFRIER [facility] Centertart: 08-49-9027xyrjjybqviGCTBQLO St[facility] Hospitaltart: 03-26-2024 End: 91-64-7140duapyldbrpKTNEHUniversity Hospitals Geneva Medical Centertart: 03-09-2024 End: 90-06-9425dsudzajmkdJHUE CHASelect Medical Specialty Hospital - Cantontart: 92-81-9559jbmbkfgtbsBDEG ELFulton County Health Centertart: 17-21-3356Zwzvcbtbim and management of inpatientOMAR HORANIMercy Health Fairfield Hospitaltart: 46-65-8603Jaebqklirv and management of inpatientSHOBHA [facility] Hospitaltart: 42-38-9589Kxipbfiyng and management of inpatientSHOBHA [facility] Hospitaltart: 08-32-7741Gxpyhssmrh and management of inpatientKIMBERLY COLEMercy Health Fairfield Hospitaltart: 42-92-5364Wmecdyzwpb and management of inpatientZAID Kettering Healthtart: 39-09-7093Yliomridwn and management of inpatientTHOMAS D OWProtestant Hospitaltart: 12-90-7699Qetunzcqsa and management of inpatientZAID [facility]tering Healthtart: 98-54-2820Rmjnmusngl and management of inpatientZAID [facility] Hospitaltart: 25-29-7471Yowrxcpjps and management of inpatientWHITNEY [facility] Hospitaltart: 02-02-2024 Evaluation and management of inpatientNASIR ALIMercy Health Fairfield Hospitaltart: 04-38-3971Fmlmcouhit and management of inpatientOMAR [facility] Hospitaltart: 02-02-2024 End: 31-89-1894Qgenthqjef and management of inpatientOMAR [facility] Hospitaltart: 02-01-2024 End: 76-32-7310qupxqthvpdQZALDM AYAHZZALUCleveland Clinic Lutheran Hospitaltart: 74-84-1062Gdrkzrbzum and management of inpatientJAMIE VENKATESHERMercy Health Fairfield Hospitaltart: 31-15-6709Raxwwkgxqp and management of inpatient RYNE YUEMercy Health Fairfield Hospitaltart: 28-89-2302Qsxavfiuh department patient visitSelect Medical Specialty Hospital - Tr[facility]ull Start: 17-66-1150Owbnloksx department patient visitLouis Stokes Cleveland VA Medical Centertart: 01-27-2024 End: 59-43-3358Dxpwocubsa and management of inpatientOMAR HORBrecksville VA / Crille Hospitaltart: 53-35-1500leulasqacrUCTEJDU [facility] Hospitaltart: 01-16-2024 End: 01-73-0615Vvycmc flowsPuma Hamptonuab medical west PA Work Phone: noms SWS DERMStart: 01-16-2024 End: 31-46-2464Bdempl flowsheetAvita Health System Bucyrus Hospitalerika Hamptonuab medical west PA Work Phone: noMS SWS DERMStart: 01-16-2024 End: 14-92-2278Gnwuiw outpatient visit 25 minutesRyloco Memou[facility] PA Work Phone: noms SWS DERMComment on above:Other atopic dermatitis (Primary Dx)Start: 01-16-2024 End: 05-25-4257shajnafqvzRHAUO NORTHEIMNot AvailableStart: 12-31-2023 End: 64-17-5763kszznrbjfxTIKJHMarymount Hospitaltart: 04-17-2023 End: 92-51-7740vzbmzspxraCA Velasquez M Hoy Work Phone: [facility] Work Phone: Start: 04-17-2023 End: 18-85-2945Tjhtexa encounter procedureMD Velasquez Hoy Work Phone: [facility] Zdm-Qrt-Cxaxluqb Testing Work Phone: Start: 04-08-2023 End: 60-60-8992gudmkbpejwHT Velasquez M Hoy Work Phone: [facility] Work Phone: Start: 04-08-2023 End: 27-71-3895Wemklvb encounter procedureMD Velasquez Hoy Work Phone: [facility] Work Phone: Start: 04-08-2023 End: 04-11-8945azgojziosrWA Velasquez M Hoy Work Phone: [facility] Work Phone: Start: 04-08-2023 End: 22-93-8923Klrikpe encounter procedureMD Velasquez Bunch Work Phone: [facility] Start: 38-83-5014lyqxvwuxdwJU VELASQUEZ FONTAINEY .Facility:C9Xlxow: 05-29-2022 End: 36-38-3015pekncozmxtWI VELASQUEZ HOY .Facility:R3Lkkcu: 03-07-2022 End: 11-75-5695wyasrhbnezJF VELASQUEZ HOY .Facility:C8Mzxtq: 02-06-2022 End: 00-51-1222pdmtjomohdHD VELASQUEZ HOY .Facility:V5Ghwlw: 54-64-9166kdgvgmwgir VELASQUEZ BUNCH .Facility:O0Kqkgy: 10-09-2019 End: 30-63-3662Qniuknkjjw and management of inpatientRANVIR S RATREMercSharp Grossmont Hospitaltart: 10-09-2019 End: 88-24-2956Mtkvyixzyy and management of inpatientCoemerald Mercado Work Phone: stvz CAR 2Comment on above:Abdominal aortic aneurysm (AAA) without rupture (HCC) (Primary Dx); Acute low back pain, unspecified back pain laterality, unspecified whether sciatica present; Vertigo; Nausea and vomiting, intractability of vomiting not specified, unspecified vomiting type; Hypertensive urgencyStart: 06-27-2017 End: 02-21-8369Xgvvlhouue and management of inpatientDOUGLAS M HOYMercy Mercy [facility] Hospital Procedures DateProcedureProcedure DetailPerforming ClinicianStart: 27-05-3654Foyuyu-up visitOMAR HORANIStart: 93-30-8820Mvvqum-up visitOMAR HORANIStart: 03-26-2024 Follow-up visitOMAR HORANIStart: 78-87-0069Lsguch-up visitOMAR HORANIStart: 91-25-5129Lbuvqp-up visitOMAR HORANIStart: 76-66-8389Bkcudk-up visitOMAR HORANI Start: 88-67-7439Nzvqb X-ray of right handMD Velasquez Bunch Work Phone: Start: 94-29-7549Huulz count complete auto&auto difrntl wbcRANVIR RATHOREStart: 85-61-5542Zatlqnpclgcuo metabolic panelRANVIR RATHOREStart: 53-48-8490Gppzzlq bacterial quanttative colony count urineRANVIR RATHOREStart: 35-55-0220Tqazi dip stick/tablet reagent auto microscopyRANVIR RATHOREStart: 13-72-6668Tgobsib blood reagent stripRANVIR RATHOREStart: 35-02-9531LAAGGEESD PATIENTRANVIR RATHOREStart: 28-34-2035Pdaab dip stick/tablet reagent auto microscopyJonatoscar Bazan Work Phone: Start: 90-46-9338QJ CONSULT TO HOME CARE NEEDSRANVIR RATHOREStart: 13-25-6349Iqjtdtf blood reagent stripRanvir S Judie Work Phone: Start: 94-22-1272LSBJGND SCANRANVIR RATHOREStart: 06-26-5908PJ CONSULT TO UROLOGYRANVIR RATHOREStart: 97-19-8742Srje bld gluc mntr dev cleared fda spec home useRANVIR RATHOREStart: 51-28-4872Vvpkawl blood reagent stripRANVIR RATHOREStart: 44-56-6047KRXZWCTS OXYGEN THERAPY PROTOCOL GIOVANNA RATHOREStart: 10-16-2019 End: 06-18-7715Duaynyt blood reagent stripRanvir S Judie Work Phone: Start: 61-55-5547Otcsz count complete auto&auto difrntl wbcRANVIR RATHOREStart: 46-83-8254Kmqtfbbwxphmm metabolic panelRANVIR RATHOREStart: 15-38-6590Eyrt bld gluc mntr dev cleared fda spec home useRANVIR RATHOREStart: 60-29-6683SIXRZ METABOLIC PANEL W/ REFLEX TO MG FOR LOW K Muralikrishna Porandla Work Phone: Start: 75-27-5153Bsisl count complete auto&auto difrntl wbcMuralikrishna Porandla Work Phone: Start: 76-33-4523ZYMDCH AND OUTPUTRANVIR RATHOREStart: 20-10-4751Vsyc bld gluc mntr dev cleared fda spec home useRANVIR RATHOREStart: 61-96-7001Jbeqpyp blood reagent stripRANVIR RATHOREStart: 57-49-8237Wrsd bld gluc mntr dev cleared fda spec home useRANVIR RATHOREStart: 06-91-3141Sgtlavx blood reagent stripRanvir S Judie Work Phone: Start: 75-64-8338Uejgcis blood reagent stripRANVIR RATHOREStart: 24-28-9555UGTWNEMJ CATHRANVIR RATHOREStart: 31-68-5351KPSJHXL NUTRITION SUPPLEMENTSRANVIR RATHOREStart: 75-75-1987Oac spinal canal lumbar w/o & w/contr matrlRANVIR RATHOREStart: 77-31-9694Gebsdrm blood reagent stripRanvir S Judie Work Phone: Start: 96-82-5730Vzs spinal canal lumbar w/o & w/contr matrlMuralikrishna Porandla Work Phone: Start: 94-48-6086Talumru blood reagent stripRANVIR RATHOREStart: 89-60-1525Fnqrcsk blood reagent stripRanvir S Judie Work Phone: Start: 84-92-2284Kzhep count complete auto&auto difrntl wbcRANVIR RATHOREStart: 96-11-1033Qikclivmiiqgw metabolic panelRANVIR RATHOREStart: 05-04-5763Wkqf bld gluc mntr dev cleared fda spec home useRANVIR RATHOREStart: 12-94-5243ZHOAUEYH CATHRANVIR RATHOREStart: 05-51-4251KATAL METABOLIC PANEL W/ REFLEX TO MG FOR LOW KMuralikrishna Porandla Work Phone: Start: 74-84-5716Bxjzn count complete auto&auto difrntl wbcMuralikrishna Porandla Work Phone: Start: 23-47-4450EK CONSULT TO IV TEAMRANVIR JUDIE Start: 00-64-6762OMIPLSUJ OXYGEN THERAPY PROTOCOLRANVIR RATHOREStart: 10-15-2019 Glucose blood reagent stripRANVIR RATHOREStart: 37-00-7461Wjusnyl blood reagent stripRanvir S Judie Work Phone: Start: 23-25-3450Cgvz bld gluc mntr dev cleared fda spec home useRANVIR RATHOREStart: 70-67-2361PFEURG AND OUTPUTRANVIR JUDIE Start: 17-38-9332Yurp bld gluc mntr dev cleared fda spec home useRANVIR JUDIE Start: 35-16-0834Xdloolv blood reagent stripRANVIR RATHOREStart: 84-73-0718Zkcw bld gluc mntr dev cleared fda spec home useRANVIR RATHOREStart: 10-14-2019 Glucose blood reagent stripRanvir S Judie Work Phone: Start: 77-65-1998CJKOTNOQ CATHRANVIR RATHOREStart: 16-66-5704Zxpjwki blood reagent stripRanvir S Judie Work Phone: Start: 72-48-0098Qfwmqjp blood reagent stripRANVIR RATHOREStart: 96-09-0080Rsqjuqa blood reagent stripRanvir S Judie Work Phone: Start: 92-89-2438Ozsr bld gluc mntr dev cleared fda spec home useRANVIR RATHOREStart: 40-74-1859LAFTWFCN OXYGEN THERAPY PROTOCOL GIOVANNA RATHOREStart: 42-82-7453TCKDCSOM CATHRANVIR RATHOREStart: 10-14-2019 Antibody treponema pallidumRANVIR RATHOREStart: 37-39-7004Pywoe count complete auto&auto difrntl wbcRANVIR RATHOREStart: 89-32-5148Hlucjsjdryyxv metabolic panelRANVIR RATHOREStart: 29-91-9578Oglejmw blood reagent stripRANVIR JUDIE Start: 36-30-2772Kmew bld gluc mntr dev cleared fda spec home useRANVIR JUDIE Start: 37-61-8952ZMORG METABOLIC PANEL W/ REFLEX TO MG FOR LOW KMuralikrisrocioa Arturo Work Phone: Start: 69-54-5070Xfyth count complete auto&auto difrntl wbcMuralmarlee Morris Work Phone: Start: 10-14-2019T. PALLIDUM ABMuraljaswindera Pormegan Work Phone: Start: 89-23-0553Qtvxbkx blood reagent stripRanvir S Judie Work Phone: Start: 74-89-5604LZWFKH AND OUTPUTRANVIR RATHOREStart: 95-50-6655Ucbf bld gluc mntr dev cleared fda spec home useRANVIR RATHOREStart: 70-29-1082CYCULXQO CATHRANVIR RATHOREStart: 41-36-5296Vdxvcnh blood reagent stripRANVIR RATHOREStart: 66-91-6142Aywb bld gluc mntr dev cleared fda spec home useRANVIR RATHOREStart: 25-07-1815Tgnflft blood reagent stripRanvir S Judie Work Phone: Start: 41-33-6360Vmzcqcu blood reagent stripRANVIR RATHOREStart: 74-11-4967Ejtxowl blood reagent stripRanvir S Judie Work Phone: Start: 59-33-1127Pxuqt of ammoniaRANVIR RATHOREStart: 61-22-7301Khfzs gases any combination ph pco2 po2 co2 fbk9LGDNDO RATHOREStart: 42-12-8493ZZ CONSULT TO IV TEAMRANVIR RATHOREStart: 42-19-6775Fkesfobm mycoplsm GIOVANNA RATHOREStart: 99-26-8420Hpswtkj blood reagent stripRanvir S Judie Work Phone: Start: 73-16-3511Irqee of ammoniaDharmakaruna Edara Work Phone: Start: 58-90-9187Vjhne gases any combination ph pco2 po2 co2 dpe2Fmykvutooqrz Edara Work Phone: Start: 03-34-7572Yyzpyhai mycoplsmLuis E Kendrick Work Phone: Start: 24-29-0224Fnnk bld gluc mntr dev cleared fda spec home useRANVIR RATHOREStart: 98-92-5855TXZUOCAL OXYGEN THERAPY PROTOCOL GIOVANNA RATHOREStart: 59-12-0850Ifqorgs blood reagent stripRANVIR RATHOREStart: 19-98-5605Khrkx of magnesiumRANVIR RATHOREStart: 31-05-4605Dlqhl count complete auto&auto difrntl wbcRANVIR RATHOREStart: 56-34-5977Degoylvzliovg metabolic panelRANVIR RATHOREStart: 54-47-4314Sojrycc blood reagent stripRanvir S Judie Work Phone: Start: 52-05-0444Jhmg bld gluc mntr dev cleared fda spec home useRANVIR RATHOREStart: 25-18-4639Crolm of magnesiumMuralikrishna Porandla Work Phone: Start: 10-53-7173IJOGV METABOLIC PANEL W/ REFLEX TO MG FOR LOW KMuralikrishna Porandla Work Phone: Start: 71-36-8077Djvau count complete auto&auto difrntl wbcMuralikrishna Porandla Work Phone: Start: 02-52-4162VZSHNU AND OUTPUTRANVIR RATHOREStart: 20-48-9223Nhvz bld gluc mntr dev cleared fda spec home useRANVIR RATHOREStart: 05-40-4798Ddwho dip stick/tablet reagent auto microscopyRANVIR RATHOREStart: 14-42-8107Bqsrixi blood reagent stripRANVIR RATHOREStart: 95-35-4977Stdk bld gluc mntr dev cleared fda spec home useRANVIR RATHOREStart: 39-74-5132Ohegi dip stick/tablet reagent auto microscopyMuralikrishna Porandla Work Phone: Start: 83-33-3051Xrbqsbc blood reagent stripRanvir S Judie Work Phone: Start: 89-66-5202Iivfblx blood reagent stripRANVIR RATHOREStart: 52-90-8686IBMP GENERALRANVIR RATHOREStart: 59-86-6987Guxdlbv blood reagent stripRanvir S Judie Work Phone: Start: 17-53-2730URGFULQ, BLOOD 1RANVIR RATHOREStart: 84-55-3097Kuolglx blood reagent stripRANVIR RATHOREStart: 24-58-5590Oszqkhl blood reagent stripRanvir S Judie Work Phone: Start: 68-65-5110Pck-scan artl braydon abdl/pel/scrot&/rpr orgn comRANVIR RATHOREStart: 38-64-8951Ydov bld gluc mntr dev cleared fda spec home useRANVIR RATHOREStart: 59-97-8484Okvthfu blood reagent stripRANVIR JUDIE Start: 55-82-6159SYGDIWSP OXYGEN THERAPY PROTOCOLRANVIR RATHOREStart: 10-12-2019 Dup-scan artl braydon abdl/pel/scrot&/rpr orgn comMuralikrishna Porandla Work Phone: Start: 81-33-2245Itijo of aldosteroneRANVIR JUDIE Start: 45-50-8766Puzuv of magnesiumRANVIR RATHOREStart: 44-66-0131Oesti of renin GIOVANNA RATHOREStart: 62-61-2256Rypjk count complete auto&auto difrntl wbcRANVIR RATHOREStart: 71-39-2886Ihvxngxfxhngc metabolic panelRANVIR RATHOREStart: 92-40-9470Nyvrjdc blood reagent stripRanvir S Judie Work Phone: Start: 01-36-1103Ojuro of aldosteroneMuralikrishna Porandla Work Phone: Start: 65-86-2864Vapsg of magnesiumMuralikrishna Porandla Work Phone: Start: 31-70-9168Grrwx of reninMuralikrishna Porandla Work Phone: Start: 35-59-4671GWVRD METABOLIC PANEL W/ REFLEX TO MG FOR LOW KMuralikrishna Arturo Work Phone: Start: 13-85-5838Ynezc count complete auto&auto difrntl wbcMuralikrishna Arturo Work Phone: Start: 49-58-4920Asyt bld gluc mntr dev cleared fda spec home useRANVIR RATHOREStart: 56-26-0503XJSFEP AND OUTPUTRANVIR JUDIE Start: 48-03-4502Hdvx bld gluc mntr dev cleared fda spec home useRANVIR JUDIE Start: 46-70-2657Nqbqzmipoz exam chest single viewRANVIR RATHOREStart: 80-73-7415AE CONSULT TO INFECTIOUS DISEASESRANVIR RATHOREStart: 69-73-4985Yxgbr source albumin quantitative each specimenRANVIR RATHOREStart: 10-11-2019 Radiologic exam chest single viewKarim Damien Work Phone: Start: 92-14-5050Idwhpqe blood reagent stripRANVIR RATHOREStart: 20-01-5833Pmkm bld gluc mntr dev cleared fda spec home useRANVIR RATHOREStart: 99-73-4434BfjncozyaagjqTJQRBK RATHOREStart: 51-59-8960Wgvmcad blood reagent stripRanvir S Judie Work Phone: Start: 27-94-4086Vhlikbs blood reagent stripRanvir S Judie Work Phone: Start: 66-30-8685HektvcfurgbinOqbugotrabsxc Porandla Work Phone: Start: 16-55-1651Mya brain brain stem w/o w/contrast materialRANVIR RATHOREStart: 85-08-1057Hlwzqoe blood reagent stripRANVIR JUDIE Start: 68-48-8936Can brain brain stem w/o w/contrast materialViry Morelos Work Phone: Start: 67-61-9844Bpxhrtb blood reagent stripRanvir S Judie Work Phone: Start: 49-52-1973Pxwe bld gluc mntr dev cleared fda spec home useRANVIR RATHOREStart: 13-22-5899Vphimuz blood reagent stripRANVIR RATHOREStart: 82-82-6074ZCSTBIEP OXYGEN THERAPY PROTOCOLRANVIR RATHOREStart: 31-67-0665Obaoadg blood reagent stripRanvir S Judie Work Phone: Start: 05-93-1198Nislr count complete auto&auto difrntl wbcRANVIR RATHOREStart: 18-79-3465Arpgpjoonhlkw metabolic panelRANVIR RATHOREStart: 60-84-7822Ntvk bld gluc mntr dev cleared fda spec home useRANVIR RATHOREStart: 62-75-1054QBYBG METABOLIC PANEL W/ REFLEX TO MG FOR LOW K Muralikiesha Mcmanusandla Work Phone: Start: 13-01-2865Ugzct count complete auto&auto difrntl wbcMuralikrishna Arturo Work Phone: Start: 10-36-3799WBSSQV AND OUTPUTRANVIR RATHOREStart: 84-52-4673Rhajgoq blood reagent stripRANVIR RATHOREStart: 85-90-7545Wxqw bld gluc mntr dev cleared fda spec home useRANVIR RATHOREStart: 88-38-9538Bygmbqa blood reagent stripRanvir S Judie Work Phone: Start: 63-28-4985Bctmq sacrum & coccyx minimum 2 views GIOVANNA RATHOREStart: 82-44-0691Qsfis spine lumbosacral 2/3 viewsRANVIR JUDIE Start: 68-01-7024Iltqfpt blood reagent stripRANVIR RATHOREStart: 29-76-4922Eldm bld gluc mntr dev cleared fda spec home useRANVIR RATHOREStart: 40-23-1512Ltyed sacrum & coccyx minimum 2 viewsDharmakaruna Edara Work Phone: Start: 86-21-3739Wjibl spine lumbosacral 2/3 views Dharmakaruna Edara Work Phone: Start: 75-32-5315Abfyypg blood reagent stripRanvir S Judie Work Phone: Start: 61-85-9116Bnqkg of lactateRANVIR RATHOREStart: 08-43-3478A-reactive proteinRANVIR RATHOREStart: 89-00-2462Kwywkgsunlryv (pct) GIOVANNA RATHOREStart: 35-66-8278Zaramqzxzhbeh rate rbc automatedRANVIR JUDIE Start: 77-19-3224Bv head/brain w/o contrast materialRANVIR RATHOREStart: 36-87-2556Ji angiography head w/contrast/noncontrastRANVIR RATHOREStart: 98-47-3568Jigcs of lactateLuis Manish Erazo Work Phone: Start: 77-49-5719H-reactive proteinLuis Manish Erazo Work Phone: Start: 43-17-1324Dsbbungwenxyc (pct)Alfonso Manish Erazo Work Phone: Start: 75-90-2068Ealvkqiyruueh rate rbc automatedLuis Manish Erazo Work Phone: Start: 88-21-5787Vr head/brain w/o contrast material Jimmy Chirri Work Phone: Start: 81-78-3952Dw angiography neck w/contrast/noncontrastLuis Manish Erazo Work Phone: Start: 15-75-6698Ziqtarf blood reagent stripRANVIR RATHOREStart: 20-60-7366RO CONSULT TO NEUROLOGYRANVIR RATHOREStart: 10-10-2019 Glucose blood reagent stripRanvir S Judie Work Phone: Start: 12-90-8292WLRGVSFPTWGGS NURSING CARE ORDER (SPECIFY)GIOVANNA RATHOREStart: 93-90-7601Fogc bld gluc mntr dev cleared fda spec home useRANVIR RATHOREStart: 67-81-8984YIYWTJAI OXYGEN THERAPY PROTOCOLRANVIR RATHOREStart: 85-40-9562Uqaow of magnesiumRANVIR RATHOREStart: 28-56-6990Hchag of thyroid stimulating hormone tshRANVIR RATHOREStart: 89-34-7277Kskte count complete auto&auto difrntl wbcRANVIR RATHOREStart: 80-05-9434Eheedfsfgacsq metabolic panelRANVIR RATHOREStart: 41-87-6116Yocui of magnesiumMuralikrisrocioa Pormegan Work Phone: Start: 03-26-3090Enssv of thyroid stimulating hormone tshMujoshua Morris Work Phone: Start: 16-08-6344KPSWP METABOLIC PANEL W/ REFLEX TO MG FOR LOW KMuralikrisrocioa Eduardola Work Phone: Start: 68-72-2863Oqofu count complete auto&auto difrntl wbcMuralmarlee Morris Work Phone: Start: 55-41-8369Zzyp bld gluc mntr dev cleared fda spec home useRANVIR RATHOREStart: 63-06-8566QHRJR WEIGHTSRANVIR RATHOREStart: 54-03-7849LQHOET AND OUTPUTRANVIR RATHOREStart: 35-58-7123Yqsp bld gluc mntr dev cleared fda spec home useRANVIR RATHOREStart: 98-99-5153Bfvqxfkxtw exam abdomen 1 viewRANVIR RATHOREStart: 51-97-8963Poej bld gluc mntr dev cleared fda spec home useRANVIR RATHOREStart: 84-98-3767Arajjiq blood reagent stripRANVIR JUDIE Start: 60-05-4791Ljksgngqwr exam abdomen 1 viewMujoshua Morris Work Phone: Start: 02-53-6429Bmmnjds blood reagent stripRanvir S Judie Work Phone: Start: 39-94-1255PWGZX SIGNSRANVIR RATHOREStart: 63-71-8910Wg abdominal real time w/image limitedRANVIR RATHOREStart: 10-09-2019 MISCELLANEOUS NURSING CARE ORDER (SPECIFY)GIOVANNA RATHOREStart: 41-54-1335Lkng bld gluc mntr dev cleared fda spec home useRANVIR RATHOREStart: 75-92-0185El abdominal real time w/image limitedDharmafelipedonn Casonwhit Work Phone: Start: 35-28-9188ICGRWJA HEELS OFF OF BEDRANVIR RATHOREStart: 45-18-1220ZFOY OF BED 60 DEGREES OR LESSRANVIR RATHOREStart: 76-96-1886DJFNXWN COMMUNICATIONRANVIR RATHOREStart: 10-74-9209HLOJ PATIENTRANVIR RATHOREStart: 53-87-2018CCIPPA AND OUTPUTRANVIR RATHOREStart: 60-32-1401AD EVAL AND TREATRANVIR RATHOREStart: 00-38-9672EV EVAL AND TREATRANVIR RATHOREStart: 53-26-1730FWUK CODERANVIR RATHOREStart: 24-24-7448KWZFVHZA OXYGEN THERAPY PROTOCOLRANVIR RATHOREStart: 10-20-6563CXCAIR PHYSICIAN (SPECIFY)GIOVANNA JUDIE Start: 40-89-5871UMQRQF FOR NO MECHANICAL VTE PROPHYLAXISRANVIR RATHOREStart: 99-08-4627CSAZW SIGNSRANVIR RATHOREStart: 93-06-1787Jhwkj dip stick/tablet reagent auto microscopyRANVIR RATHOREStart: 81-56-0540Bxnvv dip stick/tablet rgnt auto w/o microscopyRANVIR RATHOREStart: 80-18-0624Klivu dip stick/tablet reagent auto microscopyMuralikrishna Porandla Work Phone: Start: 90-22-5463Lhqja dip stick/tablet rgnt auto w/o microscopyMuralikrishna Porandla Work Phone: Start: 27-04-6463ISHCPEB STATUS (FROM ED OR OR/PROCEDURAL)GIOVANNA RATHOREStart: 15-09-5241FF CONSULT TO INTERNAL MEDICINE GIOVANNA RATHOREStart: 33-86-1721Sh thorax w/contrast materialRANVIR RATHOREStart: 72-83-0679Ipbnu of troponin quantitativeRANVIR RATHOREStart: 58-33-4654Iepkog bodies serum quantitativeRANVIR RATHOREStart: 67-60-7980XVDXX-19RANVIR JUDIE Start: 73-49-1399Tza routine ecg w/least 12 lds w/i&rRANVIR RATHOREStart: 50-92-1561WYO REPORTRANVIR RATHOREStart: 02-03-8299Uwodh of lipaseRANVIR JUDIE Start: 70-93-1951Lwswi count complete auto&auto difrntl wbcRANVIR RATHOREStart: 66-07-8457Bnxyiuouiijle metabolic panelRANVIR RATHOREStart: 36-15-6087Xvlxmybxii glycosylated q1yXJRJEZ RATHOREStart: 05-47-0232Cxlwe panelRANVIR RATHOREStart: 61-34-7729Qj thorax w/contrast materialTucker J NEMOPTIC Work Phone: Start: 80-40-6872Ueapj of troponin quantitativeTucker J NEMOPTIC Work Phone: Start: 37-08-4116Uwocee bodies serum quantitative Joel Maci [employer] Work Phone: Start: 33-19-4894ZN CONSULT TO VASCULAR SURGERYRANVIR RATHOREStart: 83-54-3188UEQUR-19Julie Chandler Work Phone: Start: 46-51-3083Joy routine ecg w/least 12 lds trcg only w/o i&rTucker J NEMOPTIC Work Phone: Start: 33-91-2655XRR REPORTHpf ScanningStart: 71-54-7988Wlrma of lipaseTucker J NEMOPTIC Work Phone: Start: 07-78-3101Rnfdb of troponin quantitativeTucker J Pepperdata Phone: Start: 15-23-1319Qygct count complete auto&auto difrntl wbcTucker J NEMOPTIC Work Phone: Start: 70-10-2028Kloonqquayizq metabolic panelTucker J [employer]EM[employer]IC Work Phone: Start: 82-45-3529Lcxuhrjwwe glycosylated b0rDgqwfw J [employer]EM[employer]IC Work Phone: Start: 13-31-1882Egfak panelTucker J Pepperdata Phone: Start: 29-87-0796RYDLDUKJV PATIENTDOUGLAS HOYStart: 93-84-0121WCOOFAOC OXYGEN THERAPY PROTOCOLDOUGLAS HOYStart: 05-44-3436GCQPK METABOLIC PANEL W/ REFLEX TO MG FOR LOW KDOUGLAS HOYStart: 85-92-5133ZCR WITH AUTO DIFFERENTIALDOUGLAS HOYStart: 15-02-8787VPTRDDJEDXJKOXX HOYStart: 91-86-8931CQFIWDTMMPZTFCH HOYStart: 12-52-5716ZFRDS WEIGHTSDOUGLAS HOYStart: 44-34-9752QDTZIN AND OUTPUTDOUGLAS HOYStart: 35-23-6638DZEWQTZGNJCXLAQHUR HOY Start: 85-26-1435LQBQODFR TOTALDOUGLAS HOYStart: 74-02-5660CTERLXSVQAAM HOY Start: 12-45-1598PFKJTDUIUWIFRIQ HOYStart: 45-35-7682POAZHHMXSKUUL URINEDOUGLAS HOYStart: 60-11-8106JFDCOCOJ PATIENTDOUGLAS HOYStart: 42-37-2595AYGHC METABOLIC PANEL W/ REFLEX TO MG FOR LOW KDOUGLAS HOYStart: 42-52-0829SUC WITH AUTO DIFFERENTIALDOUGLAS HOYStart: 23-14-5595Jhcj tthrc r-t 2d w/wom-mode compl spec&colr dDOUGLAS HOYStart: 76-25-9883SBAH CODEDOUGLAS HOYStart: 06-28-2017 INITIATE OXYGEN THERAPY PROTOCOLDOUGLAS HOYStart: 11-84-8229MUIFEJ AND OUTPUT VELASQUEZ HOYStart: 55-63-7608PQ CONSULT TO SOCIAL WORKDOUGLAS HOYStart: 27-24-3452CD EVAL AND TREATDOUGLAS HOYStart: 87-47-3940RJ EVAL AND TREATDOUGLAS HOYStart: 27-77-7436YPTEJB FOR NO MECHANICAL VTE PROPHYLAXISDOUGLAS HOYStart: 39-69-7140EQXLWSA CESSATION EDUCATIONDOUGLAS HOYStart: 44-83-1959RHTAL SIGNS VELASQUEZ HOYStart: 94-49-8799PBPT CARDIACDOUGLAS HOYStart: 77-92-6973MBWCPD PHYSICIAN (SPECIFY)VELASQUEZ HOYStart: 27-91-9818UNRZO INTERMITTENT PNEUMATIC COMPRESSION DEVICEDOUGLAS HOYStart: 75-74-1233BOITQV FOR NO CHEMICAL VTE PROPHYLAXISDOUGLAS HOYStart: 54-56-0166FAWGJTIXR MONITORINGDOUGLAS HOYStart: 65-74-9451ZLMWA SIGNSDOUGLAS HOYStart: 86-70-4529SGDGUTZ STATUS (FROM ED OR OR/PROCEDURAL)VELASQUEZ HOYStart: 42-36-7606ZYRLIJKBCIHRIWK HOYStart: 36-46-0655UK CONSULT TO INTERNAL MEDICINEDOUGAPOLLO FONTAINEYStart: 00-36-7674WZT 12-LEADDOUGLAS JULIO C Start: 33-44-9350SLGOW METABOLIC PANELDOUGLAS HOYStart: 91-70-0156RMY WITH AUTO DIFFERENTIALDOUGLAS HOYStart: 11-75-5003PCJQQHUWXDQYIQF HOYStart: 65-05-6986JIH WITH REFLEXDOUGLAS HOYStart: 23-03-9419Hkjnuzseyv exam chest 2 viewsDOUGAPOLLO HOY Start: 89-06-0353CLIRW RT REFLEX TO ADRINANEROMY HOYStart: 65-98-9332VJBJBC PERIPHERAL IVDOUGAPOLLO BUNCH Plan of Treatment DateCare ActivityDetailAuthorStart: 91-78-9552Qcjar cultureBarnesville Hospitaltart: 76-00-8956Nutveyoh identified in Urine by CultureUrine [facility]tart: 08-24-2024 End: 56-94-6331Fxdgggz encounter kmvpawqjj43/01/2025 4:00 PM EDT Office Visit [facility] [address] [place] [phone] Curry Red MD [address] [place] [address] [facility] DERMStart: 02-06-2024 End: 12-35-6615Dyhrxsh encounter vqzvlisui74/13/2024 1:10 PM EST Office Visit [facility] [address] [place] [phone] Iva Ta PA [address] [place] [phone] [facility] DERMStart: 01-16-2024 End: 91-24-4695Avoosrr encounter xkmyaspvn24/22/2024 11:50 AM EST Office Visit [facility] [address] [place] [address] Iva Ta PA [address] [place] [address] ArrivedNO SWS DERMComment on above:ArrivedStart: 04-53-2308Cspuaeedl vaccinationInfluenza Vaccine (#1)[facility] HealthcareStart: 44-01-8467Pdnfh X-ray of right handXR hand RT min 3V*[facility] Hospitaltart: 60-11-8447JD Hand - right GE 3 ViewsBarnesville Hospitaltart: 69-35-5498Uovjypetbktm Vaccine: 65+ Years (2 of 2 - PCV) Pneumococcal Vaccine: 65+ Years (2 of 2 - PCV)[facility] HealthcareStart: 10-14-2020 Creatinine measurementCreatinine monitoringMercy Health St. [facility]: 10-14-2020 Potassium monitoringPotassium monitoringEast [place], [place]Start: 10-26-2019 Influenza vaccinationFlu vaccine (#1)[facility]: 51-62-3329Tdvbqn Wellness Visit (AWV)Annual Wellness Visit (AWV)[facility]: 10-77-8071Fdaldxqshwzl 65+ years Vaccine (1 of 1 - PPSV23)Pneumococcal 65+ years Vaccine (1 of 1 - PPSV23)[facility]: 89-95-6793Knoknbuid for osteoporosisDEXA (modify frequency per FRAX score)[facility]: 64-44-4328Cptzfphm Vaccine (1 of 2)Shingles Vaccine (1 of 2)[place], [place] Start: 04-19-1310BMaZ/Tdap/Td vaccine (1 - Tdap)DTaP/Tdap/Td vaccine (1 - Tdap) [place], [place] End: 66-80-2450TUAUPLV, CSFALBUMIN, CSF Lab Routine One Time for 1 Occurrences starting 10/11/2019 until 10/11/2019[place], [place]Comment on above:One Time for 1 Occurrences starting 10/11/2019 until 10/11/2019Basic Metabolic Panel w/ Reflex to MGBasic Metabolic Panel w/ Reflex to MG Lab Routine Daily until discontinued starting 10/10/2019, 7 [facility], [place]Comment on above:Daily until discontinued starting 10/10/2019, 7 completedCBC auto differentialCBC auto differential Lab Routine Daily until discontinued starting 10/10/2019, 7 [facility], [place]Comment on above:Daily until discontinued starting 10/10/2019, 7 completedCulture, Blood 1MK[facility], [place] End: 18-99-8219Nucauuq, UrineCulture, Urine Microbiology Routine One Time for 1 Occurrences starting 10/16/2019 until 10/16/2019[facility], [place]Comment on above:One Time for 1 Occurrences starting 10/16/2019 until 10/16/2019Culture, UrineCulture, Urine Microbiology [employer] Label Print 10/16/2019 1:08 PM EDT [facility], KYNebulizer therapyHHN Treatment Respiratory Care Routine As Needed until discontinued starting 10/11/2019[facility], [place]Comment on above:As Needed until discontinued starting 10/11/2019Oxygen therapy [Minimum Data Set]Initiate Oxygen Therapy Protocol Respiratory Care Routine Daily until discontinued starting 10/09/2019[facility], [place]Comment on above:Daily until discontinued starting 10/09/2019POCT GlucoseNewark Hospital, [place]Comment on above:As Needed until discontinued starting 10/09/20194X Daily (AC & HS) until discontinued starting 10/09/2019 Immunizations Immunization DateImmunizationNotesCare HtallvtpNsfsmjet58-81-7511KLMVZ-17 mRNA- 1273 (Moderna)MD Velasquez Bunch Work Phone: [facility]02-26-2021COVID-19 mRNA-1273 (Moderna)MD Velasquez Bunch Work Phone: [facility]01-29-2021COVID-19 mRNA-1273 (Moderna)MD Velasquez Bunch Work Phone: [facility]10-05-2020influenza virus vaccine, unspecified formulationernesto HARRIS Work Phone: [facility] Healthcare Payers DatePayer CategoryPayerPoly [id number] (Managed Care) [id number] [id number] [id number] [id number] 1960Self-pay [id number] [id number] 2.16.840.1.460165.3.57[id number] 2.16.840.1.970854.3.57[id number] 2.16.840.1.179668.3.57[id number] 2.16.840.1.236036.3.57[id number] 2.16.840.1.781889.3.57[id number] 2.16.840.1.15[id number] 2.16.840.1.697695.3.579.2.531 Social History DateTypeDetailFacilityStart: 55-07-1300Mxtmurj smoking status NHISNever smoker [facility]: 10-09-2019 End: 59-03-1316Tvybsqa use and exposureNever usedMercy Health St. [facility]: 22-85-6539Wbtuagf intakeCurrent non-drinker of alcohol (finding)[facility], [place]Start: 53-63-1596Oam Assigned At BirthNot on [facility], [place] Exposure to SARS-CoV-2 (event)Not [facility], CLARAStart: 06-07-7936Jfr Assigned At BirthFeGood Samaritan Hospitaltart: 04-17-2023 End: 73-14-1164Sjguris smoking status NHISEx-smoker (finding)[facility] HospitalHistory of tobacco useCurrent smokerNOMS HealthcareHistory of tobacco useCigarette SmokerNOMS HealthcareStart: 04-17-2023 End: 62-05-7550Glimvjn of Social functionNOMS HealthcareStart: 04-17-2023 End: 84-85-3788Tdbpssf use panelNOCO HealthcareStart: 77-15-2611Qgyazmr Comment Last smoked: 10-15 yearsNOMS HealthcareSexFemale (finding)[facility] Clinical Notes 05-18-2020 to 12-22-2024 Note Date & MgocAprxLejzprhk07-43-3039 NoteUnOhioHealth [facility] Methodist Hospital 08-30-2024 NoteRECEIVED REFERRAL FOR PATIENT FOR GALLBLADDER COLIC, CALLED PATIENT WHO STATED SHE IS GOING TO TALK TO PCP AND WOULD LIKE TO HAVE THIS DONE CLOSER TO HOME. [facility]07-04-2025 NoteUnOhioHealth Dublin Methodist Hospital07-04-2025 NoteUnOhioHealth [facility] Methodist Hospital07-04-2025 Note [facility]06-25-2025 NoteSpoke to patient regarding vascular procedure- Patient is scheduled for 08/26/24 @ 1pm with an arrival time of 11am- preop labs entered. Patient educated on medication holds and lab work needing completed prior to OR. Patient verbalized understanding.[facility]06-12-2025 NoteSelect Medical [facility]06-11-2025 NoteSelect [facility] 08-04-2024 NoteUnOhioHealth [facility] Methodist Hospital04-25-2025 NoteUnOhioHealth [facility] Methodist Hospital04-14-2025 NoteUnOhioHealth [facility] Hospital 05-20-2024 History of Present illness Narrative* Curry A Petitti, MD - 05/20/2024 4:00 PM EDT Images [...] be refrigerated. Medication will be sent to [facility], contact information provided to patient, instructed [...] 3 month follow up documented in this encounterScotland County Memorial HospitalQtubgsbzwt17-03-1618 NotePatient called insurance underwriter direct line ([phone]), however calling to reach [facility] Nephrology. Ore Dressing Engineer provided patient with phone number to reach Nephrology ([phone]).[facility]03-18-2025 NoteSelect [facility]02-07-2025 NoteSelect [facility] 03-26-2024 NoteSelect [facility]01-14-2025 NoteSelect [facility]12-23-2024 NoteSelect [facility] 02-12-2024 NoteSelect [facility]12-19-2024 NoteSelect [facility]12-19-2024 NoteOccupational Therapy Name: Shayy Maynard Date of : 1945 Today's Date: 02/12/24 Pt is unable to be seen for therapy at this time secondary to Discharging !@ 1030 Check No Charge Time attempted: 0957UnOhioHealth [facility] Methodist Hospital12-18-2024 NoteSelect [facility]12-18-2024 NoteSelect [facility] 02-11-2024 NoteSelect [facility]12-18-2024 NoteSelect [facility]12-17-2024 NoteSelect [facility] 02-10-2024 NoteSelect [facility]12-17-2024 NoteSelect [facility]12-17-2024 NoteSelect [facility] 02-10-2024 NoteSelect [facility]12-17-2024 NoteSelect [facility]12-17-2024 NoteSelect [facility] 02-10-2024 NoteSelect [facility]12-16-2024 NoteSelect [facility]12-16-2024 NoteSelect [facility] 02-09-2024 NoteSelect [facility]12-16-2024 NoteSelect [facility]12-16-2024 NoteSelect [facility] 02-08-2024 NoteSelect [facility]12-15-2024 NoteSelect [facility]12-15-2024 NoteSelect [facility] 02-08-2024 NoteSelect [facility]12-15-2024 NoteSelect [facility]12-14-2024 NoteSelect [facility] 02-07-2024 NoteSelect [facility]12-14-2024 NoteSelect [facility]12-13-2024 NoteSelect [facility] 02-06-2024 NoteSelect [facility]12-13-2024 NoteSelect [facility]12-13-2024 NoteSelect [facility] 02-06-2024 NoteSelect [facility]12-13-2024 NoteSelect [facility]12-12-2024 NoteSelect [facility] 02-05-2024 NoteSelect [facility]12-12-2024 NoteSelect [facility]12-12-2024 NoteSelect [facility] 02-05-2024 NoteSelect [facility]12-11-2024 NoteSelect [facility]12-11-2024 NoteSelect [facility] 02-04-2024 NoteBrief follow up with RN. No family at bedside. Patient is sleeping. Patient is scheduled for angiogram today. Once procedure/test completed and patient medically cleared therapy will return for eval and recommendations. SW following.[facility]12-11-2024 NoteSelect [facility]12-11-2024 NoteSelect [facility]12-11-2024 Note [facility]12-11-2024 NoteSelect [facility]12-10-2024 NoteSelect [facility]12-10-2024 Note [facility]12-10-2024 NoteSelect [facility]12-10-2024 NoteOccupational Therapy Name: Shayy Maynard Date of : 1945 Today's Date: 02/03/24 Pt is unable to be seen for therapy at this time secondary to Medically unstable today per nsg . Check No Charge Time attempted: 1113UnOhioHealth [facility] Methodist Hospital12-10-2024 NoteSelect [facility]12-10-2024 NoteSelect [facility] 02-03-2024 NoteSelect [facility]12-10-2024 NoteSelect [facility]12-09-2024 NoteCase was discussed with the KEN on 02/02/2024. I agree with the history, physical, assessment, and plan of care. I discussed the findings and therapeutic plan. I agree with the documentation, except for any updates below. Daniela Van MDSelect Medical [facility]12-09-2024 NoteSelect [facility]12-07-2024 NoteSelect [facility] 01-31-2024 NoteSelect [facility]12-07-2024 NoteSelect [facility]12-06-2024 NoteSelect [facility] 01-30-2024 NoteSelect [facility]12-06-2024 NoteSelect [facility]12-06-2024 NoteSelect [facility] 01-30-2024 NoteSelect [facility]12-06-2024 NoteSelect [facility]12-05-2024 NoteSelect [facility] 01-29-2024 NoteSelect [facility]12-05-2024 NoteSelect [facility]12-05-2024 NoteSelect [facility] 01-29-2024 NoteUnOhioHealth [facility] Hospital12-04-2024 [id number]: PEDAL PULSES: PRE PROCEDURE RIGHT: PT/DOPPLER; DP/DOPPLER LEFT: PT/DOPPLER; DP/DOPPLERUnOhioHealth [facility] Methodist Hospital12-04-2024 Note 1701: FAMILY UPDATED ON PROGRESS OF PROCEDUREUnOhioHealth [facility] Hospital 01-28-2024 NoteUnOhioHealth [facility]12-04-2024 NoteUnOhioHealth [facility] Hospital12-04-2024 NotePeripheral IV Date/Time: 01/28/2024 4:39 PM Inserted by: Rick Brown MD Placement Needle size: 14 G Laterality: right Location: hand Local anesthetic: none Site prep: alcohol Technique: anatomical landmarks Attempts: 2UnOhioHealth [facility] Hospital12-04-2024 NoteUnOhioHealth [facility] Hospital12-04-2024 NoteSelect [facility] 01-28-2024 NoteUnOhioHealth [facility] Hospital12-04-2024 NotePhysical Therapy Planned endovascular AAA repair today per RN. Will defer evaluation at this time and follow up post-operatively as appropriate. Peter Cartagena PT, DPTUnOhioHealth Dublin Methodist Hospital12-04-2024 Note Occupational Therapy Name: Shayy Maynard Date of : 1945 Today's Date: 01/28/24 Pt is unable to be seen for therapy at this time secondary to planned AAA sx today/nsg request to hold . Check No Charge Time attempted: 730UnOhio[facility]12-[facility]-2024 NoteCase was discussed with the KEN on 01/27/2024. I agree with the history, physical, assessment, and plan of care. I discussed the findings and therapeutic plan. I agree with the documentation, except for any updates below. Scarlett Sharpe MDUnOhioHealth [facility] Methodist Hospital12-03-2024 NoteUnOhioHealth [facility] Methodist Hospital12-03-2024 NoteSelect Medical [facility] History of Present illness Narrative* KIMBERLY [...] Next Visit: 4-6 weeks documented in this encounterScotland County Memorial [id number] [facility]04-22-2021 Note [id number]:127[facility] 06-15-2020 NoteCystoscopy with Urethral Dilation ? [...] if you have a fever over 100 degreesOhiohealth Shelby Hospital03-25-2021 [id number]:127[facility]03-25-2021 NoteCystoscopy with Urethral Dilation ? Voiding [...] if you have a fever over 100 degreesOhiohealth Shelby HospitalEvaluation note* Diagnosis Onset Date Resolution Status Trigger finger, right middle finger acuteTrigger finger, right ring fingeracute [facility] Work Phone: Evaluation note* Diagnosis Other atopic dermatitis- Primary documented in this encounter [facility] HealthcareEvaluation note* Diagnosis Other atopic dermatitis- Primary High risk medication use documented in this encounter [facility] HealthcareEvaluation noteNo assessment information availableZanesville City Hospital Ctr Work Phone: Reason for referral (narrative)No reason for referral information availableZanesville City Hospital Ctr Work Phone: Summary Purpose Family History Relationship Condition Age at Onset Recorded Date/T janki father Malignant neoplasm of lung Unknown Not SpecifiedMyocardial infarctionUnknown Relationship Condition Age at Onset Recorded Date/T janki father Malignant neoplasm of lung Unknown motherMyocardial infarctionUnknown Advance Directives TypeDate RecordedPatient RepresentativeExplanationACP-Advance DirectiveACP-Power of AttorneyCode StatusDate [...] Contact Information Primary Emergency Contact: Deep [facility] Relation: Spouse Past Surgical History: Past Surgical [...] Assisted Dressing Assisted Toileting Assisted Feeding Assisted General Manager In Training Independent Med Delivery whole Wound Care Documentation [...] NOT a DME order): n/a Other Treatments: correction, home health aide services Patient's personal belongings (please select all that are sent with patient): patient has all belongings RN SIGNATURE: CASE MANAGEMENT/SOCIAL WORK SECTION Inpatient Status Date: 10-09-2019 Readmission Risk Assessment Score: Readmission Risk Risk of Unplanned Readmission: 12 Discharging to Facility/ Agency Name: [facility] Address: Phone: Fax: Dialysis Facility (if applicable) Name: Address: Dialysis Schedule: Phone: Fax: Low Pressure Kettle Operator/Produce Weigher signature: EDT ICIAN SECTION Prognosis: Fair Condition [...] size monitoring with PCP F/u urologist at [facility] in 1 week for lowe and void trial Take docusate 100 mg daily and miralax 17 g daily. documented in this encounter History of Present Illness * Tami Ni RN - 10/16/2019 5:51 PM EDT Ore Dressing Engineer discharged patient @ 1745 by wheelchair off unit with . Ore Dressing Engineer went over all discharge paperwork and [...] who was admitted as a transfer from [facility] 10/09/2019 where she presented with gradually worsening [...] to ensure the accuracy of this automated assessment analyst, some errors in assessment analyst may have occurred. * Bruce Pelletier MD - 10/16/2019 11:07 AM EDT [facility] Internal Medicine Teaching Residency Program Inpatient Daily Progress Note Patient: Shayy Maynard Date of : 1945 Acct: [id number] Room: Admit date: 10/09/2019 Today's date: 10/16/19 [...] of COPD, primary hypertension was transferred from [facility] for management of infrarenal abdominal aortic aneurysm and for vascular consultation. States she started having lower back pain since . Describes the pain as constant, sharp, 10out of 10 in intensity associated with nausea. Patient went to the emergency department at [facility] to have hypertensive emergency with systolics above 200 and d-dimer was elevated. CT abdomen was done which showed 3.5 infrarenal aortic aneurysm, started on Cardene drip and pain medications we re given. Patient was transferred to [facility] found to be hypoxic in [...] Q4H PRN hydrALAZINE, 10 mg, Q6H PRN ymjcqxwrmc-dhqaimmuejhck-rlpetgqc, 1 tablet, Q4H PRN sodium chloride flush, [...] Dwayne Hanson MD Internal Medicine Resident, PGY-1 [facility]; [place], [place] 10/16/2019, 11:07 AM I have discussed [...] [facility] - Progress Note Today's Date and Time: [...] culture. Medical Decision Making/Summary/Discussion:10/16/2019 Infection Control Recommendations [place] Precautions Antimicrobial Stewardship Recommendations Discontinuation of therapy [...] of . INITIAL HISTORY: Patient transferred from [facility] on 10-09-19 because of low back pain and findings of an infrarenal abdominal aortic aneurysm. Developed onset of back pain on 10-07-19, associated with nausea. She was evaluated at [facility] and found to have a hypertensive emergency with systolic pressures over [address] showed a 3.5 cm infrarenal aortic aneurysm. Her BP was controlled with Cardene drip and the patient was transferred to [facility]. [facility] patient had signs of hypoxia, and [...] Initial FINDINGS: CTA NECK: AORTIC ARCH/ARCH VESSELS: Bflv-nm-pabighie atherosclerotic plaque at the arch arch and [...] No acute pulmonary process. Emphysema. Medical Decision Cnyrbw-Egdbzywc-Wefoj: 10/15/2019 12:10 AM - Blanco Moreau Incoming Lab Results From [facility] Specimen Information: Blood Component Collected Lab Specimen Description 10/12/2019 2:17 PM [facility] .BLOOD Special Requests 10/12/2019 2:17 PM [email or web address] back lt arm 3ml Culture 10/12/2019 2:17 PM [email or web address] NO GROWTH 3 DAYS Medical Decision Making-Other: [...] Patel RN - 10/16/2019 6:15 AM EDT Ore Dressing Engineer bladder scanned patient and bladder scan shows 554 mL, insurance underwriter straight cath patient and was only able [...] loss Fluid Accumulation: 1 - Mild Extremities Order Editor Strength: Not Performed Estimated Daily Nutrient Needs: Energy (kcal): 1.3-1.4 ~> 3621-2444 kcals/d; Weight Used for Energy Requirements: Admission Protein (g): 1.2-1.4 ~> 65-76 gms/d; Weight Used for Protein Requirements: [place] Nutrition Related Findings: Na 131 Wounds: None Current Nutrition Therapies: DIET GENERAL; Anthropometric Measures: Height: 5' 4 (162.6 cm) Current Body Weight: 154 lb (69.9 kg) Admission Body Weight: 154 lb (69.9 kg) Usual Body Weight: 160 lb (72.6 kg)(per pt's ) [place] Body Weight: 120 lbs; % [place] Body Weight 128.3 % BMI: 26.4 BMI [...] Discharge Planning: Too soon to determine Contact: [phone] * Dwayne Hanson MD - 10/15/2019 3:09 PM EDT [facility] Internal Medicine Teaching Residency Program Inpatient Daily Progress Note Patient: Shayy Maynard Date of : 1945 Acct: [id number] Room: Admit date: 10/09/2019 Today's date: 10/15/19 [...] of COPD, primary hypertension was transferred from [facility] for management of infrarenal abdominal aortic aneurysm and for vascular consultation. States she started having lower back pain since . Describes the pain as constant, sharp, 10out of 10 in intensity associated with nausea. Patient went to the emergency department at [facility] to have hypertensive emergency with systolics above 200 and d-dimer was elevated. CT abdomen was done which showed 3.5 infrarenal aortic aneurysm, started on Cardene drip and pain medications we re given. Patient was transferred to [facility] found to be hypoxic in [...] Q4H PRN hydrALAZINE, 10 mg, Q6H PRN cisssjwvcq-zqqktgegjxmhb-txkdagvs, 1 tablet, Q4H PRN sodium chloride flush, [...] Dwayne Hanson MD Internal Medicine Resident, PGY-1 [facility]; [place], [place] 10/15/2019, 3:09 PM Associated attestation - [...] - 10/15/2019 3:09 PM EDT Occupational Therapy [facility] Occupational Therapy Not Seen Note DATE: [...] Spoke with pt/family [facility] [] Pt independent with functional mobility and functional tasks. Pt with no OT acute care needs at this time, will defer OT eval. [] Other Next Scheduled Treatment: Ck 10/15, as appropriate. Winifred Foster, OT/S * Sho Tierney PTA - 10/15/2019 1:55 PM EDT Physical Therapy Facility/Department: [facility] CAR 2 Daily Treatment Note NAME: Shayy [...] place: No Restraints: all rail up when PETROLEUM ENGINEERING PROFESSOR left, okay with pt Therapy Time Individual Concurrent Group Co-treatment Time In 1326 Time Out 1342 Minutes 16 Timed Code Treatment Minutes: 16 Minutes Sho Tierney PTA * Willie Garcia, TETRYL BLENDER OPERATOR - SENIOR HOUSEKEEPER - 10/15/2019 10:38 AM EDT Neurology Nurse [...] who was admitted as a transfer from [facility] 10/09/2019 where she presented with gradually worsening [...] to ensure the accuracy of this automated assessment analyst, some errors in assessment analyst may have occurred. * Sailaja Durán RN - 10/15/2019 9:00 AM EDT Pt straight cathed for 850 cc clear yellow urine. Tolerated well. Will continue to monitor. * Alfonso Kendrick MD - 10/15/2019 8:38 AM EDT [facility] - Progress Note Today's Date and Time: [...] antibiotics Medical Decision Making/Summary/Discussion:10/15/2019 Infection Control Recommendations [place] Precautions Antimicrobial Stewardship Recommendations Discontinuation of therapy [...] of . INITIAL HISTORY: Patient transferred from [facility] on 10-09-19 because of low back pain and findings of an infrarenal abdominal aortic aneurysm. Developed onset of back pain on 10-07-19, associated with nausea. She was evaluated at [facility] and found to have a hypertensive emergency with systolic pressures over [address] showed a 3.5 cm infrarenal aortic aneurysm. Her BP was controlled with Cardene drip and the patient was transferred to [facility]. At [facility] patient had signs of hypoxia, [...] Initial FINDINGS: CTA NECK: AORTIC ARCH/ARCH VESSELS: Jgbg-nj-qofyqqgj atherosclerotic plaque at the arch arch and [...] No acute pulmonary process. Emphysema. Medical Decision Wmwwej-Bwaokqne-Iojud: 10/15/2019 12:10 AM - PrietoBlanco nicolas Incoming Lab Results From [facility] Specimen Information: Blood Component Collected Lab Specimen Description 10/12/2019 2:17 PM [employer]works .BLOOD Special Requests 10/12/2019 2:17 PM [email or web address] back lt arm 3ml Culture 10/12/2019 2:17 PM [email or web address] NO GROWTH 3 DAYS Medical Decision Making-Other: [...] Hanson MD - 10/14/2019 1:29 PM EDT [facility] Internal Medicine Teaching Residency Program Inpatient Daily Progress Note Patient: Shayy Maynard Date of : 1945 Acct: [id number] Room: Admit date: 10/09/2019 Today's date: 10/14/19 [...] of COPD, primary hypertension was transferred from [facility] for management of infrarenal abdominal aortic aneurysm and for vascular consultation. States she started having lower back pain since . Describes the pain as constant, sharp, 10out of 10 in intensity associated with nausea. Patient went to the emergency department at [facility] to have hypertensive emergency with systolics above 200 and d-dimer was elevated. CT abdomen was done which showed 3.5 infrarenal aortic aneurysm, started on Cardene drip and pain medications we re given. Patient was transferred to [facility] found to be hypoxic in [...] Q4H PRN hydrALAZINE, 10 mg, Q6H PRN xgmzteoogm-nwowmtzpbypwt-wqnjuhzj, 1 tablet, Q4H PRN sodium chloride flush, [...] mL/hr, PRN Diagnostic Labs: CBC: Recent Labs 10/12/1936 10/13/19 0602 10/14/19 0535 WBC 12.2* 12.3* [...] Dwayne Hanson MD Internal Medicine Resident, PGY-1 [facility]; [place], [place] 10/14/2019, 1:29 PM Associated attestation - [...] Electronically signed by Bruce Pelletier MD * Willie Garcia APRN - [...] who was admitted as a transfer from [facility] 10/09/2019 where she presented with gradually worsening [...] to ensure the accuracy of this automated assessment analyst, some errors in assessment analyst may have occurred. * Alfonso Kendrick MD - 10/14/2019 10:10 AM EDT [facility] - Progress Note Today's Date and Time: [...] antibiotics Medical Decision Making/Summary/Discussion:10/14/2019 Infection Control Recommendations [place] Precautions Antimicrobial Stewardship Recommendations Discontinuation of therapy [...] of . INITIAL HISTORY: Patient transferred from [facility] on 10-09-19 because of low back pain and findings of an infrarenal abdominal aortic aneurysm. Developed onset of back pain on 10-07-19, associated with nausea. She was evaluated at [facility] and found to have a hypertensive emergency with systolic pressures over [address] showed a 3.5 cm infrarenal aortic aneurysm. Her BP was controlled with Cardene drip and the patient was transferred to [facility]. At [facility] patient had signs of hypoxia, [...] Initial FINDINGS: CTA NECK: AORTIC ARCH/ARCH VESSELS: Fgee-kb-uzsvqzeh atherosclerotic plaque at the arch arch and [...] No acute pulmonary process. Emphysema. Medical Decision Jytcxg-Pjrsaqzy-Zjolx: Medical Decision Making-Other: Note: Labs, medications, radiologic [...] Ferris RN - 10/13/2019 10:40 PM EDT Ore Dressing Engineer contacted internal med regarding pt complaining of lower abdominal pain. States she has to void but is unable to. Bladder scanned her just now and >999. New order for one time straight cath. Straight cath completed at 2315. 900ml clear, yellow urine out with 63ml residual. Will continue to monitor. 0430- Ore Dressing Engineer contacted internal med regarding pt unable [...] 10/13/2019 4:16 PM EDT Physical Therapy Facility/Department: [facility] CAR 2 Daily Treatment Note NAME: Shayy [...] Hanson MD - 10/13/2019 9:30 AM EDT [facility] Internal Medicine Teaching Residency Program Inpatient Daily Progress Note Patient: Shayy Maynard Date of : 1945 Acct: [id number] Room: Admit date: 10/09/2019 Today's date: 10/13/19 Number of days in the hospital: 4 SUBJECTIVE Admitting Diagnosis: Aneurysm of infrarenal abdominal aorta (HCC) CC: Midline Lower Back Pain Pt examined at bedside. Chart & results reviewed. BP increased overnight - Center Line Cutter Operator Gas System Operator gave Norvasc and started IV Hydralazine early [...] of COPD, primary hypertension was transferred from [facility] for management of infrarenal abdominal aortic aneurysm and for vascular consultation. States she started having lower back pain since . Describes the pain as constant, sharp, 10out of 10 in intensity associated with nausea. Patient went to the emergency department at [facility] to have hypertensive emergency with systolics above 200 and d-dimer was elevated. CT abdomen was done which showed 3.5 infrarenal aortic aneurysm, started on Cardene drip and pain medications we re given. Patient was transferred to [facility] found to be hypoxic in [...] Q4H PRN hydrALAZINE, 10 mg, Q6H PRN jcursgypxn-hzheaoghwjhpm-bmvglerd, 1 tablet, Q4H PRN sodium chloride flush, [...] Dwayne Hanson MD Internal Medicine Resident, PGY-1 [facility]; [place], [place] 10/13/2019, 9:31 AM Associated attestation - [...] Overall course ; show no tire changer time. Headache is improved Blood pressure improved Ultrasound renal duplex, concerning for unilateral renal artery stenosis Patient very sleepy Has tenderness in lower back X-ray lumbar spine done at the time of admission, concerning for possible fracture Ordering MRI lumbar spine Electronically signed by Bruce Pelletier MD * Viry Morelos, TETRYL BLENDER OPERATOR - SENIOR HOUSEKEEPER - 10/13/2019 8:44 AM EDT NEUROLOGY INPATIENT [...] negative for acute changes -IV Depacon 500mg B8rlqla x3 doses -Continued blood pressure management as [...] to ensure the accuracy of this automated assessment analyst, some errors in assessment analyst may have occurred. * Alfonso Kendrick MD - 10/13/2019 7:57 AM EDT [facility] - Progress Note Today's Date and Time: 10/13/2019, 7:57 AM Impression : Fever, etiology to be determined Intermittent Headaches, most likely side effect of the various medications being given for control of HTN. No apparent meningitis Low back pain Aneurysm infrarenal abdominal aorta Centrilobular emphysema Allergy to quinolones, sulfa Recommendations: Monitor off antibiotics Medical Decision Making/Summary/Discussion:10/13/2019 Infection Control Recommendations [place] Precautions Antimicrobial Stewardship Recommendations Discontinuation of therapy [...] of . INITIAL HISTORY: Patient transferred from [facility] on 10-09-19 because of low back pain and findings of an infrarenal abdominal aortic aneurysm. Developed onset of back pain on 10-07-19, associated with nausea. She was evaluated at [facility] and found to have a hypertensive emergency with systolic pressures over [address] showed a 3.5 cm infrarenal aortic aneurysm. Her BP was controlled with Cardene drip and the patient was transferred to [facility]. At [facility] patient had signs of hypoxia, and [...] 21 94 % 10/13/19 0331 (!) 154/63 08 0300 (!) 165/63 70 21 96 % [...] Initial FINDINGS: CTA NECK: AORTIC ARCH/ARCH VESSELS: Yznj-rf-ditckkiw atherosclerotic plaque at the arch arch and [...] No acute pulmonary process. Emphysema. Medical Decision Dqxmri-Agrgqsbt-Ntyjs: Medical Decision Making-Other: Note: Labs, medications, radiologic [...] Ferris RN - 10/13/2019 3:00 AM EDT Ore Dressing Engineer contacted internal med regarding pt blood [...] administer. New order for PO 10mg norvasc. Ore Dressing Engineer will continue to monitor BP and pain. * Alfonso Kendrick MD - 10/12/2019 4:32 PM EDT [facility] - Progress Note Today's Date and Time: 10/12/2019, 4:32 PM Impression : Fever, etiology to be determined Intermittent Headaches, most likely side effect of the various medications being given for control of HTN. No apparent meningitis Low back pain Aneurysm infrarenal abdominal aorta Centrilobular emphysema Allergy to quinolones, sulfa Recommendations: Monitor off antibiotics Blood, urine cultures Medical Decision Making/Summary/Discussion:10/12/2019 Infection Control Recommendations [place] Precautions Antimicrobial Stewardship Recommendations Discontinuation of therapy [...] of . INITIAL HISTORY: Patient transferred from [facility] on 10-09-19 because of low back pain and findings of an infrarenal abdominal aortic aneurysm. Developed onset of back pain on 10-07-19, associated with nausea. She was evaluated at [facility] and found to have a hypertensive emergency with systolic pressures over [address] showed a 3.5 cm infrarenal aortic aneurysm. Her BP was controlled with Cardene drip and the patient was transferred to [facility]. At [facility] patient had signs of hypoxia, [...] Initial FINDINGS: CTA NECK: AORTIC ARCH/ARCH VESSELS: Vcvi-uj-jztafbgt atherosclerotic plaque at the arch arch and [...] No acute pulmonary process. Emphysema. Medical Decision Kuxwun-Ddgqfdja-Clvfn: Medical Decision Making-Other: Note: Labs, medications, radiologic [...] Therapy Not Seen Note DATE: 10/12/2019 Name: Shayysrinath Maynard : 1945 Patient not available for Occupational Therapy due to: RN cx d/t pt not feeling well and has a fever. Next Scheduled Treatment: 10/13/2019 * Denys Morris MD - 10/12/2019 1:53 PM EDT [facility] Internal Medicine Teaching Residency Program Inpatient Daily Progress Note Patient: Shayy Maynard Date of : 1945 Acct: [id number] Room: Admit date: 10/09/2019 Today's date: 10/12/19 [...] (10/10/191946) dextrose lactated ringers 75 mL/hr at 08/17/20 2316 PRN Medicationssodium chloride, 1 spray, PRN ipratropium-albuterol, 1 ampule, Q4H PRN labetalol, 10 mg, Q4H PRN hydrALAZINE, 10 mg, Q6H PRN fekxgnxhvt-gpqibitxqwtrq-drwhmzwd, 1 tablet, Q4H PRN sodium chloride flush, [...] Denys Morris MD Internal Medicine Resident, PGY-3 [facility]; [place], [place] 10/12/2019, 1:53 PM * Bruce Pelletier MD - 10/12/2019 1:07 PM EDT Patient seen and examined Little sleepy, clonidine discontinued Hypertension controlled Headache improved MRI brain reviewed concerning for meningioma Work-up for secondary hypertension progress * Viry Morelos APRN - SENIOR HOUSEKEEPER - 10/12/2019 6:51 AM EDT NEUROLOGY INPATIENT [...] to ensure the accuracy of this automated assessment analyst, some errors in assessment analyst may have occurred. * Divina Ferris RN - 10/11/2019 10:20 PM EDT Ore Dressing Engineer contacted internal med regarding pt headache of 3/10. Pt has IV toradol and reglan ordered. Pt is alert and oriented x2. Ore Dressing Engineer instructed to hold IV toradol and reglan and to administer PRN tylenol for the headache. Will continue to monitor. * Divina Ferris RN - 10/11/2019 10:20 PM EDT Ore Dressing Engineer contacted internal med regarding blood pressure 161/62 and temp of 99.9 after administering scheduled clonidine and lopressor. Pt rating headache 3/10. Ore Dressing Engineer instructed to hold scheduled IV toradol and reglan. 0435- Ore Dressing Engineer contacted internal med regarding BP. Ore Dressing Engineer unable to keep SBP <160. Ore Dressing Engineer administered PRN IV hydralazine at 2315 for a pressure in the 170s, pressure went to the 160s then back up.IV labetalol administered at 0315 for SBP in the low 180s. Pressure still in the 170s. No new orders at this time. Ore Dressing Engineer instructed to continue to monitor. 0530- IV hydralazine and PO fioricet administered. No new orders at this time. Will continue to monitor BP. * Divina Ferris RN - 10/11/2019 10:15 PM EDT Ore Dressing Engineer received call from Dr. Kendrick regarding [...] Hanson MD - 10/11/2019 2:46 PM EDT [facility] Internal Medicine Teaching Residency Program Inpatient Daily Progress Note Patient: Shayy Maynard Date of : 1945 Acct: [id number] Room: Admit date: 10/09/2019 Today's date: 10/11/19 [...] of COPD, primary hypertension was transferred from [facility] for management of infrarenal abdominal aortic aneurysm and for vascular consultation. States she started having lower back pain since . Describes the pain as constant, sharp, 10out of 10 in intensity associated with nausea. Patient went to the emergency department at [facility] to have hypertensive emergency with systolics above 200 and d-dimer was elevated. CT abdomen was done which showed 3.5 infrarenal aortic aneurysm, started on Cardene drip and pain medications we re given. Patient was transferred to [facility] found to be hypoxic in [...] Q4H PRN hydrALAZINE, 10 mg, Q6H PRN wflhcxviit-hciyfmwlyyaih-krhrxoyn, 1 tablet, Q4H PRN sodium chloride flush, [...] mL/hr, PRN Diagnostic Labs: CBC: Recent Labs 10/09/19 0448 10/10/1962610/11/19 0529 WBC 7.7 7.4 6.8 RBC 4.78 4.53 4.71 HGB 14.2 13.5 13.7 HCT 44.6 42.7 43.6 MCV 93.3 94.3 92.6 RDW 14.2 14.5* 14.3 PLT 202 170 196 BMP: Recent Labs 10/09/198 10/10/1962610/11/19528 NA 141 132* 135 K 3.9 3.5* [...] Dwayne Hanson MD Internal Medicine Resident, PGY-1 [facility]; [place], [place] 10/11/2019, 2:46 PM * Bruce Pelletier [...] Ambulation Assistance: Independent Transfer Assistance: Independent Active Medical Records Assistant: Yes Occupation: Retired Additional Comments: pt [...] Times per week: 2-3 visits AM-PAC Score [facility] Inpatient Daily Activity Raw Score: 20 (10/11/191326) [facility] Inpatient ADL T-Scale Score : 42.03 (10/11/191326) [...] 10/11/2019 12:17 PM EDT Physical Therapy Facility/Department: [facility] CAR 2 Initial Assessment NAME: Shayy Maynard : 1945 [...] Ambulation Assistance: Independent Transfer Assistance: Independent Active Medical Records Assistant: Yes Occupation: Retired Additional Comments: pt [...] AD used Exercises Comments: toileted, did own ijnny care Plan Plan Times per week: 5x/wk [...] Timed Code Treatment Minutes: 8 Minutes Usman Arambula PT * Carlene Potter RN - 10/11/2019 [...] of Toradol 15mg, Reglan 5mg, Benadryl 12.5mg [id number] x3 -Continued blood pressure management as you are doing -May consider LP through IR for persistent headache -We will follow Please note that this note was generated using a voice recognition dictation software. Although every effort was made to ensure the accuracy of this automated assessment analyst, some errors in assessment analyst may have occurred. * Marely Guardado RN - 10/10/2019 9:18 PM EDT Perfect served motor and controls tester intermed: Patient is due to get 100mg [...] Hanson MD - 10/10/2019 11:58 AM EDT [facility] Internal Medicine Teaching Residency Program Inpatient Daily Progress Note Patient: Shayy Maynard Date of : 1945 Acct: [id number] Room: Admit date: 10/09/2019 Today's date: 10/10/19 [...] of COPD, primary hypertension was transferred from [facility] for management of infrarenal abdominal aortic aneurysm and for vascular consultation. States she started having lower back pain since . Describes the pain as constant, sharp, 10out of 10 in intensity associated with nausea. Patient went to the emergency department at [facility] to have hypertensive emergency with systolics above 200 and d-dimer was elevated. CT abdomen was done which showed 3.5 infrarenal aortic aneurysm, started on Cardene drip and pain medications we re given. Patient was transferred to [facility] found to be hypoxic in [...] Dwayne Hanson MD Internal Medicine Resident, PGY-1 [facility]; [place], [place] 10/10/2019, 12:00 PM * Giovanna Rodrigues [...] Prieto DO - 10/09/2019 4:07 AM EDT [facility] ED Emergency Department Emergency Medicine [...] meclizine (ANTIVERT) tablet 25 mg ONCE Last MAR action: Given - by ANNIKA LÓPEZ on 10/09/19 at 0527 JOEL MELTON 10/09/19 0515 10/09/19 0502 haloperidol lactate (HALDOL) injection 5 mg ONCE Last MAR action: Given - [...] a 74 y.o. Female with transfer from [employer] [facility]. Low back pain since . 3.4 infrarenal [...] [AM] ED Course User Index [AM] Megha Prieto, OUTSTANDING TASKS / RECOMMENDATIONS: 1. CT Chest [...] [] Eloped FOLLOW-UP: Velasquez Bunch MD [address] [facility] [place] [address] DISCHARGE MEDICATIONS: New Prescriptions No medications on [...] Trigger finger, right ring finger Chief Complaint Admit Date Unknown December 29, 2024 3 :05pm Additional Source Comments INFORMATION SOURCE (unrecogn ized section and content) DATE CREATED AUTHOR 08/13/2017 [facility] DATE CREATED AUTHOR AUTHOR'S ORGANIZ ATION 11/03/2019 [facility] DATE CREATED AUTHOR AUTHOR'S ORGANIZ ATION 11/29/2020 [facility] DATE CREATED AUTHOR AUTHOR'S ORGANIZ ATION 06/18/2022 [facility] DATE CREATED AUTHOR AUTHOR'S ORGANIZ ATION 05/22/2024 [facility] DATE CREATED AUTHOR AUTHOR'S ORGANIZ ATION 08/20/2024 [facility] DATE CREATED AUTHOR AUTHOR'S ORGANIZ ATION 12/24/2024 [facility] Reason for Visit (unrecogniz ed section and content) ReasonCommentsAbdominal PainBack PainStatusReasonSpecialtyDiagnoses / Procedures Referred By ContactReferred To Contact Diagnoses AAA (abdominal aortic aneurysm) ([facility]) Giovanna Rodrigues MD [address] [place] [address] [facility] ReasonCommentsEczemaReasonCommentsFollow-up Care Teams (unrecognized sec tion and content) Team Status: Active Member Role Status Kaylynn Bunch MD Primary Care Provider Active Team Status: Inactive Member Role Status Dates Velasquez Bunch MD Primary Care Provider Active Start: [...] DateEnd Date Velasquez Bunch MD [address] [place] [address] PCP - GeneralFamily Xukeukvp98/13/23Team MemberRelationshipSpecialtyStart Date End Date Velasquez Bunch MD [address] [place] [address] [facility] - [facility] Nktxliuq12/13/23Team MemberRelationshipSpecialtyStart Date End Date Velasquez Bunch MD [address] [place] [address] PCP - GeneralFamily Iqpxwrre14/13/23Team MemberRelationshipSpecialtyStart Date End Date Velasquez Bunch MD [address] [facility] [address] [facility] Team Status: Inactive Member Role/Relationship Status Dates Jaclyn Kimble ([facility]) MD Attending Provider Active Start: December 29, 2024 End: December 29, 2024 Goals (unrecognized section and content) Goals may [...] BE BASED ON THE PRIMARY CLINICAL RECORDS. [employer] provides no warranty or guarantee of the accuracy or completeness of information in this document.
--- OUTSIDE RECORDS SUMMARY | 2024-12-30 07:22 | XMS_ITS | Clinical Summary ---
Author Organization [facility] Address [address] [place] [address] Care Team Providers Care Quarryman Name Role Phone Velasquez Langley MD Primary Care Provider [phone] Allergies Active AllergyReactionsCriticalityNoted DateCommentsAtorvastatinUnknown 01/15/20233687IafrzvjzJrxmrpi54/22/3050AuteckyvxulhbNpjadmm12/04/2018 Other Reaction(s): Vomiting WajmzcfxowJvqxabcomnpQuhl34/04/2018 Other Reaction(s): Anaphylaxis, Unknown Meperidine QhyAecenkw40/22/2023MoxifloxacinAnaphylaxis,HzvnqwvNssh38/04/2018 Other Reaction(s): Other Had to bring me back. Had to pump my heart UnxsbfrpbdUuydycx60/04/2018 Other Reaction(s): Itching Promethazine Hcl4632BchxraljtybbSlbhqqp30/04/2018 Other Reaction(s): Unknown Reaction IkogtsnZnvitgw48/04/2018Sulfa CswigbzklkhCgurzio09/04/2018 Other Reaction(s): Itching Wound Dressing TlugoetjZbsxtvs67/30/2023 Medications MedicationSigDispense QuantityRefillsLast FilledStart DateEnd DateStatus memantine [...] InformationValueDate RecordedSex Assigned at BirthNot on fileLegal VykQswqun73/15/2023 7:09 PM EDTGender IdentityNot on fileSexual OrientationNot on file Last Filed Vital Signs Vital SignReadingTime TakenCommentsBlood Pressure--Pulse--Temperature-- Respiratory Rate--Oxygen Saturation--Inhaled Oxygen Concentration--Abfnuc87.1 kg (159 lb)01/06/2023 10:45 AM NDLExwyjg052 cm (5' 3 )01/06/2023 10:45 AM ESTBody Mass Index28.17103/08/2022 10:45 AM EST Plan of Treatment Health MaintenanceDue DateLast DoneCommentsPneumococcal Vaccine: 65+ Years (2 of 2 - PCV)/COVID-19 Vaccine (5 - 2024- season)2024 12/20/2020, 05/19/2020, 04/21/2020, Additional history existsInfluenza Vaccine (#1)/06/2019 Insurance Care Teams Team MemberRelationshipSpecialtyStart DateEnd Velasquez Langley MD PCP - GeneralFamily Hbdkhncn66/13/23
--- OUTSIDE RECORDS SUMMARY | 2024-12-30 07:22 | XMS_ITS | Patient Health Record ---
Author Organization [facility] in [place] Address [address] [place] [address] Care Team Providers Care Apparatus Operator Name Role Phone Enio Langley Primary Care Provider [phone] Valerio Wang Unavailable [phone] BrentonUsman Unavailable [phone] Allergies Allergen (clinical drug ingredient) Drug/Non Drug Allergy documented on EMR Reaction Allergy Type Onset Date Status aspirin Aspirin Excessive Bleeding Drug Allergy ActiveatorvastatinAtorvastatin CalciumUnknownDrug AllergyActivemoxifloxacin AveloxUnknownDrug AllergyActiveciprofloxacinCiproUnknownDrug AllergyActive meperidineDemerolUnknownDrug AllergyActiveNubainUnknownDrug AllergyActive promethazinePhenerganUnknownDrug AllergyActivecefdinirCefdinirUnknownDrug AllergyActiveSubstance with sulfonamide structure and antibacterial mechanism of action (substance)Sulfa AntibioticsUnknownDrug AllergyActive Results Component Value Reference Range Notes BNP Reviewed date:08/16/2024 07:19:28 PM Interpretation: Performing Lab: Notes/Report: [facility] , NT Pro B Type Natriuretic Pept 6680.0 <=1800.0 p g/mL RESULTS CALLED TO DR. LANGLEY Performing Lab: see note ML - [facility] LBCBC AUTO DIFF Reviewed date:08/16/2024 06:39:10 PM Interpretation: Performing Lab: Notes/Report: [facility] ,White Blood Count7.34.0-11.0 10 3/uLRed Blood Count3.874.20-5.40 10 6/uL Xsmxfokeim15.412.0-16.0 g/eYBktjtqdvhx50.836.0-48.0 %Mean Corpuscular Wmoacc15.5 81.0-99.0 fLMean Corpuscular Ccdspctuia77.526.7-34.0 pgMean Corpuscular HGB Conc 31.829.9-35.2 g/dLRed Cell Distribution Width16.911.0-15.0 %Platelet Ofypj623 150-450 10 3/uLMean Platelet Uusoqc89.69.5-13.5 fLNeutrophils Percent Auto64.5 43.0-75.0 %Lymphocytes Percent Auto23.820.5-60.0 %Monocytes Percent Auto7.81.7- 12.0 %Eosinophils Percent Auto3.10.9-7.0 %Basophils Percent Auto0.30.2-2.0 % Immature Granulocytes Pct Auto0.50.0-0.5 %Neutrophils Absolute Auto4.71.4-6.5 10 3/uLLymphocytes Absolute Auto1.71.2-3.8 10 3/uLMonocytes Absolute Auto0.60.3-0.8 10 3/uLEosinophils Absolute Auto0.20.0-0.7 10 3/uLBasophils Absolute Auto0.00.0- 0.1 10 3/uLImmature Granulocytes Abs Auto0.040.00-0.03 10 3/uLPerforming Lab:see noteML - [facility] LBPROF 14(COMP METB) Reviewed date:08/16/2024 07:19:28 PM Interpretation: Performing Lab: Notes/Report: [facility] ,Hkzoin962659-411 mmol/LPotassium4.53.5-5.1 mmol/ORgaxppnm40055-154 mmol/LCarbon Ndnmolk12.421.0-32.0 mmol/LAnion Gap12.3Bmydoot05972-832 mg/dLBlood Urea Ohyuhuzb82.07.0-18.0 mg/dLCreatinine1.480.55-1.02 mg/dLEstimated GFR ( Crvpsno21>=60 mL/min/1.73m 2Estimated GFR (Non- Ame34>=60 mL/min/1.73m 2 BUN Creatinine Ratio30.4Bdmhsql4.88.5-10.1 mg/dLBilirubin Total0.40.2-1.0 mg/dL Aspartate Amino Nxwxcnllyrt4049-77 U/LAlanine Pjqzhjzwnnlvwvvk0346-62 U/L Alkaline Puleutqsuwv09834-856 U/LTotal Protein6.26.4-8.2 g/dLAlbumin Level3.1 3.4-5.0 g/dLGlobulin3.1Albumin Globulin Ratio1.0Performing Lab:see noteML - [facility] LBRT pulmonary function test Reviewed date:07/05/2024 08:47:56 PM Interpretation: Performing Lab: Notes/Report: Source Facility: [place] [address] Respiratory Report Signed Patient: ZACHARY MAYNARD MR#: [id number] : 1945 Acct:[id number] Age/Sex: 79 / F ADM Date: 06/30/24 Loc: CARD Attending Dr: Dipti Fulton M.D. Ordering Physician: Dipti Fulton M.D. Date of Service: 06/30/24 Procedure(s): RT pulmonary function test Accession Number(s): [id number] cc: [facility] Test Date: 2024-06-30 Pat Name: ZACHARY MAYNARD Department: Room: - Gender: Female Clinical Registered Nurse: Alisa Bradley RRT : 1945 Requested By: Dipti Fulton Order Number: [id number] Jeannette MD: Usman Zavala Interpretive Statements Pulmonary function testing was completed according to ATS criteria. Findings were considered accurate and reproducible with exception of panting maneuvers. Both pre- and post-bronchodilator values utilized for spirometry. Spirometry (based on pre-bronchodilator values): -FEV1/FVC: Reduced @ 58% -FEV1: Normal @ 119% -FVC: Supra-normal @ 149% -CIV06-08%: Reduced @ 67% -There is a partial [...] 1601 07/05/24 1601 DD/ 1247 TD/TT: Data Architect Manager:TORITO Reviewed date:07/27/2024 04:20:30 PM Interpretation: Performing Lab: Notes/Report: [facility] ,Alanine Ywpvmqtwblmosvds4708-11 U/LPerforming Lab:see note - [facility] LBSGOT Reviewed date:07/27/2024 04:20:30 PM Interpretation: Performing Lab: Notes/Report: [facility] ,Aspartate Amino Vszygzuasjv2817-70 U/LPerforming Lab:see note - [facility] LBLIPID PROFILE Reviewed date:07/27/2024 04:20:30 PM Interpretation: Performing Lab: Notes/Report: [facility] ,Bqtgrhiltjoup833<=150 mg/hBSddpopimqlq380<=200 mg/dLHDL Ftdpdjtsxdt6344-91 mg/dL > or =60 mg/dl - LOW CARDIOVASCULAR RISK <40 mg/dl - HIGH CARDIOVASCULAR RISK LDL Cholesterol Bxcibcdqtp47.0 <100 mg/dl OPTIMAL 100-129 mg/dl NEAR OR ABOVE OPTIMAL 130-159 mg/dl BORDERLINE HIGH 160-189 mg/dl HIGH >190 mg/dl VERY HIGH VLDL MZPVFWHVKTH63.2Chol HDL Ratio3.3 3.3 - 4.4 LOW RISK 4.4 - 7.1 AVERAGE RISK 7.1 - 11.0 MODERATE RISK >11.0 HIGH RISK Performing Lab:see noteML - [facility] LBHEMOGLOBIN Reviewed date:06/30/2024 01:21:43 PM Interpretation: Performing Lab: Notes/Report: [facility] ,Ofprlpsuts32.312.0-16.0 g/dLPerforming Lab:see noteML - [facility] LBUS venous doppler UE RT Reviewed date:04/01/2024 07:57:13 AM Interpretation: Performing Lab: Notes/Report: Source Facility: [facility]-[address] [place] [address] [place] [address] Ultrasound Report Signed Patient: ZACHARY MAYNARD MR#: [id number] : 1945 Acct:[id number] Age/Sex: 78 / F ADM Date: 03/31/24 Loc: RAD Attending Dr: Adina Langley M.D. Ordering Physician: Adina Langley M.D. Date of Service: 03/31/24 Procedure(s): US venous doppler UE LT Accession Number(s): [id number] cc: Adina Langley M.D. [place] [address] Patient Name: ZACHARY MAYNARD MRN: [id number] date: 1945 Sex: F Assigned Patient Location: [facility] Current Patient Location: Accession/Order Number: [id number] Exam Date: 03/31/2024 16:27 Report Date: 04/01/2024 [...] By: 04/01/24 0738 DD/ 0735 TD/TT: Data Architect Manager:XR wrist LT min 3V Reviewed date:04/04/2024 11:16:15 AM Interpretation: Performing Lab: Notes/Report: Source Facility: [address] [address] XRay Report Signed Patient: ZACHARY MAYNARD MR#: [id number] : 1945 Acct:[id number] Age/Sex: 78 / F ADM Date: 04/01/24 Loc: RAD Attending Dr: Adina Langley M.D. Ordering Physician: Adina Langley M.D. Date of Service: 04/01/24 Procedure(s): XR wrist LT min 3V Accession Number(s): [id number] cc: Adina Langley M.D. [place] [address] Patient Name: ZACHARY MAYNARD MRN: [id number] date: 1945 Sex: F Assigned Patient Location: [facility] Current Patient Location: [facility] Accession/Order Number: [id number] Exam Date: 04/01/2024 16:08 Report Date: 04/01/2024 [...] Signed By: 04/01/242153 DD/ 51 TD/TT: Data Architect Manager:CT abdomen pelvis wo con Reviewed date:02/29/2024 05:39:20 PM Interpretation: Performing Lab: Notes/Report: Source Facility: [place] [address] CT Scan Report Signed Patient: ZACHARY MAYNARD MR#: [id number] : 1945 Acct:[id number] Age/Sex: 78 / F ADM Date: 02/25/24 Loc: ER Attending Dr: Ordering Physician: Valentina Guzman Date of Service: 02/25/24 Procedure(s): CT abdomen pelvis wo con Accession Number(s): [id number] cc: Adina Langley M.D. [place] [address] Patient Name: ZACHARY MAYNARD MRN: [id number] date: 1945 Sex: F Assigned Patient Location: ER Current Patient Location: ER Accession/Order Number: [id number] Exam Date: 02/25/2024 19:38 Report Date: 02/25/2024 [...] No visible pulmonary arterial thrombus or attenuation. MYLENE: No mass or adenopathy. MEDIASTINUM: No mass [...] Signed By: 02/25/242010 DD/ 07 TD/TT: Data Architect Manager:CT chest wo con Reviewed date:02/29/2024 05:39:19 PM Interpretation: Performing Lab: Notes/Report: Source Facility: [facility]-[address] [place] [address] [place] [address] CT Scan Report Signed Patient: ZACHARY MAYNARD MR#: [id number] : 1945 Acct:[id number] Age/Sex: 78 / F ADM Date: 02/25/24 Loc: ER Attending Dr: Ordering Physician: Valentina Guzman Date of Service: 02/25/24 Procedure(s): CT chest wo con Accession Number(s): [id number] cc: Adina Langley M.D. [place] [address] Patient Name: ZACHARY MAYNARD MRN: [facility]:[id number] date: 1945 Sex: F Assigned Patient Location: ER Current Patient Location: ER Accession/Order Number: [id number] Exam Date: 02/25/2024 19:38 Report Date: 02/25/2024 [...] No visible pulmonary arterial thrombus or attenuation. MYLENE: No mass or adenopathy. MEDIASTINUM: No mass [...] Signed By: 02/25/242010 DD/ 07 TD/TT: Data Architect Manager:ECG 12 lead Reviewed date:02/29/2024 05:39:19 PM Interpretation: Performing Lab: Notes/Report: Source Facility: [place] [address] Electrocardiograph Report Signed Patient: ZACHARY MAYNARD MR#: [id number] : 1945 Acct:[id number] Age/Sex: 78 / F ADM Date: 02/25/24 Loc: ER Attending Dr: Ordering Physician: Valentina Guzman Date of Service: 02/25/24 Procedure(s): ECG 12 lead Accession Number(s): [id number] cc: [facility] Test Date: 2024-02-25 Pat Name: ZACHARY MAYNARD Department: Room: - Gender: Female Clinical Registered Nurse: : 1945 Requested By: ADINA LANGLEY Order Number: [id number] Jeannette MD: RYAN ROMERO Measurements Intervals [place] Rate: 59 P: 30 NJ: 164 QRS: -26 QRSD: 86 T: 37 QT: 448 QTc: 448 Interpretive Statements 1100 Sinus rhythm 5211 Minimal voltage criteria for LVH, may be normal variant 7202 Moderate left axis deviation 9130 borderline ECG Electronically Signed On 02-28-2024 8:11:01 EST by RYAN ROMERO Dictated By: Ryan Romero D.O. Signed By: 02/28/24 0811 DD/ 1858 TD/TT: Data Architect Manager:Troponin I High Sensitivity Reviewed date:02/29/2024 05:39:20 PM Interpretation: Performing Lab: Notes/Report: [facility] ,Troponin I High Sensitivity8.44.0-51.3 pg/mL CUT-OFF POINTS HAVE BEEN ESTABLISHED BASED ON THE FOURTH UNIVERSAL DEFINITION OF MYOCARDIAL INFARCTION. THE UPPER REFERENCE LIMIT (URL) OF TROPONIN, DEFINED THE 99TH PERCENTILE OF cTnI DISTRIBUTION IN A REFERENCE POPULATION, HAS BEEN CONFIRMED THE DECISION THRESHOLD FOR CA DIAGNOSIS. 99TH PERCENTILE = 51.4 PG/ML NOTE: HIGH-SENSITIVITY TROPONIN ASSAY IS NOT INTENDED TO BE USED IN ISOLATION BUT SHOULD BE INTERPRETED IN CONJUNCTION WITH OTHER DIAGNOSTIC AND CLINICAL INFORMATION. Performing Lab:see noteML - [facility] LBProthrombin Time INR Reviewed date:02/29/2024 05:39:20 PM Interpretation: Performing Lab: Notes/Report: [facility] ,Prothrombin Time11.19.0-11.6 secINR1.05 DESIRED INR: 2.0-3.0 CONDITIONS NOT LISTED BELOW 2.5-3.5 FOR PROSTHETIC HEART VALVE REPLACEMENT 2.5-3.5 RECURRENT THROMBOSIS Performing Lab:see noteML - [facility] LBPROF 14(COMP METB) Reviewed date:02/29/2024 05:39:20 PM Interpretation: Performing Lab: Notes/Report: [facility] ,Hbxnfb008735-008 mmol/LPotassium4.33.5-5.1 mmol/ABtepcbzk36696-857 mmol/LCarbon Hpgguvu70.421.0-32.0 mmol/LAnion Gap11.4Faureod21712-632 mg/dLBlood Urea Knwtvynt65.07.0-18.0 mg/dLCreatinine1.890.55-1.02 mg/dLEstimated GFR ( Jxyosty30>=60 mL/min/1.73m 2Estimated GFR (Non- Ame26>=60 mL/min/1.73m 2 BUN Creatinine Ratio13.3Siezghk2.98.5-10.1 mg/dLBilirubin Total0.40.2-1.0 mg/dL Aspartate Amino Cpiiyjucedt6327-72 U/LAlanine Lothpbiehimfdosm0168-62 U/L Alkaline Riukaadaqkc90548-458 U/LTotal Protein6.26.4-8.2 g/dLAlbumin Level2.9 3.4-5.0 g/dLGlobulin3.3Albumin Globulin Ratio0.9Performing Lab:see noteML - [facility] LBLIPASE Reviewed date:02/29/2024 05:39:20 PM Interpretation: Performing Lab: Notes/Report: [facility] ,Gbianf99.016.0-77.0 U/LPerforming Lab:see noteML - [facility] LBCBC AUTO DIFF Reviewed date:02/29/2024 05:39:20 PM Interpretation: Performing Lab: Notes/Report: [facility] ,White Blood Count5.04.0-11.0 10 3/uLRed Blood Count3.154.20-5.40 10 6/uL Hemoglobin8.812.0-16.0 g/iOJhgmwgboac20.436.0-48.0 %Mean Corpuscular Wpbhqd85.2 81.0-99.0 fLMean Corpuscular Snwqgrdqqh20.926.7-34.0 pgMean Corpuscular HGB Conc 31.029.9-35.2 g/dLRed Cell Distribution Width16.911.0-15.0 %Platelet Mkdco767 150-450 10 3/uLMean Platelet Eaqszg25.89.5-13.5 fLNeutrophils Percent Auto53.7 43.0-75.0 %Lymphocytes Percent Auto28.920.5-60.0 %Monocytes Percent Auto8.91.7- 12.0 %Eosinophils Percent Auto7.50.9-7.0 %Basophils Percent Auto0.60.2-2.0 % Immature Granulocytes Pct Auto0.40.0-0.5 %Neutrophils Absolute Auto2.71.4-6.5 10 3/uLLymphocytes Absolute Auto1.41.2-3.8 10 3/uLMonocytes Absolute Auto0.40.3-0.8 10 3/uLEosinophils Absolute Auto0.40.0-0.7 10 3/uLBasophils Absolute Auto0.00.0- 0.1 10 3/uLImmature Granulocytes Abs Auto0.020.00-0.03 10 3/uLPerforming Lab:see noteML - [facility] LBBNP Reviewed date:02/29/2024 05:39:20 PM Interpretation: Performing Lab: Notes/Report: [facility] ,NT Pro B Type Natriuretic Pzks1859.0<=1800.0 pg/mLRESULTS CALLED TO ROSA ANDRADE RN at 1956Performing Lab:see note - [facility] LBPTT Reviewed date:12/17/2024 03:32:32 PM Interpretation: Performing Lab: Notes/Report: [facility] ,Partial Thromboplastin Time28.022.3-36.2 secPerforming Lab:see note - [facility] LBPROF CHEM 8 (BAS METB) Reviewed date:02/16/2024 07:54:36 PM Interpretation: Performing Lab: Notes/Report: [facility] ,Jcyywd374585-263 mmol/LPotassium4.93.5-5.1 mmol/PHirnwafy34403-193 mmol/LCarbon Qkgmasx22.021.0-32.0 mmol/LAnion Gap12.7Munutmc88910-864 mg/dLBlood Urea Chlpmpoa32.07.0-18.0 mg/dLCreatinine1.780.55-1.02 mg/dLEstimated GFR ( Sbjdlnn14>=60 mL/min/1.73m 2Estimated GFR (Non- Ame27>=60 mL/min/1.73m 2 BUN Creatinine Ratio11.7Sxzoueu9.28.5-10.1 mg/dLPerforming Lab:see note - [facility] LBProthrombin Time INR Reviewed date:12/17/2024 03:32:32 PM Interpretation: Performing Lab: Notes/Report: [facility] ,Prothrombin Time11.39.0-11.6 secINR1.07 DESIRED INR: 2.0-3.0 CONDITIONS NOT LISTED BELOW 2.5-3.5 FOR PROSTHETIC HEART VALVE REPLACEMENT 2.5-3.5 RECURRENT THROMBOSIS Performing Lab:see noteML - [facility] LBCBC AUTO DIFF Reviewed date:02/16/2024 07:54:36 PM Interpretation: Performing Lab: Notes/Report: [facility] ,White Blood Count6.64.0-11.0 10 3/uLRed Blood Count2.994.20-5.40 10 6/uL Hemoglobin8.412.0-16.0 g/oOHdatnfzorw83.336.0-48.0 %Mean Corpuscular Jwgcja45.3 81.0-99.0 fLMean Corpuscular Gcegfteeeg68.126.7-34.0 pgMean Corpuscular HGB Conc 30.829.9-35.2 g/dLRed Cell Distribution Width16.611.0-15.0 %Platelet Iekuh078 150-450 10 3/uLMean Platelet Jydezf92.39.5-13.5 fLNeutrophils Percent Auto65.3 43.0-75.0 %Lymphocytes Percent Auto16.820.5-60.0 %Monocytes Percent Auto11.41.7- 12.0 %Eosinophils Percent Auto4.40.9-7.0 %Basophils Percent Auto0.90.2-2.0 % Immature Granulocytes Pct Auto1.20.0-0.5 %Neutrophils Absolute Auto4.31.4-6.5 10 3/uLLymphocytes Absolute Auto1.11.2-3.8 10 3/uLMonocytes Absolute Auto0.80.3-0.8 10 3/uLEosinophils Absolute Auto0.30.0-0.7 10 3/uLBasophils Absolute Auto0.10.0- 0.1 10 3/uLImmature Granulocytes Abs Auto0.080.00-0.03 10 3/uLPerforming Lab:see noteML - [facility] LBCT angio abdomen pelvis Reviewed date:02/02/2024 10:16:00 AM Interpretation: Performing Lab: Notes/Report: Source Facility: [place] [address] CT Scan Report Signed Patient: ZACHARY MAYNARD MR#: [id number] : 1945 Acct:[id number] Age/Sex: 78 / F ADM Date: 02/01/24 Loc: ER Attending Dr: Ordering Physician: Ryan Jamil Date of Service: 02/01/24 Procedure(s): CT angio abdomen pelvis Accession Number(s): [id number] cc: Adina Langley M.D. [place] [address] Patient Name: ZACHARY MAYNARD MRN: [id number] date: 1945 Sex: F Assigned Patient Location: ER Current Patient Location: ER Accession/Order Number: [id number] Exam Date: 02/01/2024 23:12 Report Date: 02/02/2024 [...] M.D. Signed By: 02/02/2442 DD/ TD/TT: Data Architect Manager:Troponin I High Sensitivity Reviewed date:02/02/2024 10:16:00 AM Interpretation: Performing Lab: Notes/Report: [facility] ,Troponin I High Ymerrcskddy70.74.0-51.3 pg/mL RESULTS CALLED TO RENEE HERMAN RN CUT-OFF POINTS HAVE BEEN ESTABLISHED BASED ON THE FOURTH UNIVERSAL DEFINITION OF MYOCARDIAL INFARCTION. THE UPPER REFERENCE LIMIT (URL) OF TROPONIN, DEFINED THE 99TH PERCENTILE OF cTnI DISTRIBUTION IN A REFERENCE POPULATION, HAS BEEN CONFIRMED THE DECISION THRESHOLD FOR CA DIAGNOSIS. 99TH PERCENTILE = 51.4 PG/ML NOTE: HIGH-SENSITIVITY TROPONIN ASSAY IS NOT INTENDED TO BE USED IN ISOLATION BUT SHOULD BE INTERPRETED IN CONJUNCTION WITH OTHER DIAGNOSTIC AND CLINICAL INFORMATION. Performing Lab:see noteML - [facility] LBCBC AUTO DIFF Reviewed date:02/02/2024 10:16:00 AM Interpretation: Performing Lab: Notes/Report: [facility] ,White Blood Count9.64.0-11.0 10 3/uLRed Blood Count3.144.20-5.40 10 6/uL Hemoglobin9.012.0-16.0 g/rHWuwqhqtnzh24.736.0-48.0 %Mean Corpuscular Rjkxof74.4 81.0-99.0 fLMean Corpuscular Kjcrqurqce67.726.7-34.0 pgMean Corpuscular HGB Conc 31.429.9-35.2 g/dLRed Cell Distribution Width16.511.0-15.0 %Platelet Lqecr580 150-450 10 3/uLMean Platelet Jmcwky02.49.5-13.5 fLNeutrophils Percent Auto81.3 43.0-75.0 %Lymphocytes Percent Auto10.420.5-60.0 %Monocytes Percent Auto4.81.7- 12.0 %Eosinophils Percent Auto2.50.9-7.0 %Basophils Percent Auto0.30.2-2.0 % Immature Granulocytes Pct Auto0.70.0-0.5 %Neutrophils Absolute Auto7.81.4-6.5 10 3/uLLymphocytes Absolute Auto1.01.2-3.8 10 3/uLMonocytes Absolute Auto0.50.3-0.8 10 3/uLEosinophils Absolute Auto0.20.0-0.7 10 3/uLBasophils Absolute Auto0.00.0- 0.1 10 3/uLImmature Granulocytes Abs Auto0.070.00-0.03 10 3/uLPerforming Lab:see noteML - [facility] LBXR acute abdomen series Reviewed date:02/02/2024 10:16:00 AM Interpretation: Performing Lab: Notes/Report: Source Facility: [facility]-[address] [place] [address] XRay Report Signed Patient: ZACHARY MAYNARD MR#: [id number] : 1945 Acct:[id number] Age/Sex: 78 / F ADM Date: 02/01/24 Loc: ER Attending Dr: Ordering Physician: Ryan Jamil Date of Service: 02/01/24 Procedure(s): XR acute abdomen series Accession Number(s): [id number] cc: Adina Langley M.D.; Ryan Jamil [place] [address] Patient Name: ZACHARY MAYNARD MRN: [id number] date: 1945 Sex: F Assigned Patient Location: ER Current Patient Location: ER Accession/Order Number: [id number] Exam Date: 02/01/2024 20:55 Report Date: 02/01/2024 [...] Signed By: 02/01/242247 DD/ 44 TD/TT: Data Architect Manager:CT head/brain wo con Reviewed date:02/02/2024 10:16:00 AM Interpretation: Performing Lab: Notes/Report: Source Facility: [place] [address] CT Scan Report Signed Patient: ZACHARY MAYNARD MR#: [id number] : 1945 Acct:[id number] Age/Sex: 78 / F ADM Date: 02/01/24 Loc: ER Attending Dr: Ordering Physician: Ryan Jamil Date of Service: 02/01/24 Procedure(s): CT head/brain wo con Accession Number(s): [id number] cc: Adina Langley M.D. [place] [address] Patient Name: ZACHARY MAYNARD MRN: [id number] date: 1945 Sex: F Assigned Patient Location: ER Current Patient Location: ED.MAIN Accession/Order Number: [id number] Exam Date: 02/01/2024 20:55 Report Date: 02/01/2024 [...] Signed By: 02/01/242231 DD/ 28 TD/TT: Data Architect Manager:BNP Reviewed date:12/29/2024 04:52:32 PM Interpretation: Performing Lab: Notes/Report: [facility] ,NT Pro B Type Natriuretic Sgaz4527.0<=1800.0 pg/mLRESULTS CALLED TO DR. ESTRADA Performing Lab:see noteML - [facility] LBECG 12 lead Reviewed date:02/02/2024 10:16:00 AM Interpretation: Performing Lab: Notes/Report: Source Facility: [place] [address] Electrocardiograph Report Signed Patient: ZACHARY MAYNARD MR#: [id number] : 1945 Acct:[id number] Age/Sex: 78 / F ADM Date: 02/01/24 Loc: ER Attending Dr: Ordering Physician: Ryan Jamil Date of Service: 02/01/24 Procedure(s): ECG 12 lead Accession Number(s): [id number] cc: [facility] Test Date: 2024-02-01 Pat Name: ZACHARY MAYNARD Department: Room: - Gender: Female Clinical Registered Nurse: : 1945 Requested By: ADINA LANGLEY Order Number: [id number] Reading MD: ADINA LANGLEY Measurements Intervals [place] Rate: 70 P: 70 NJ: 170 QRS: 61 QRSD: 88 T: 60 QT: 378 QTc: 399 Interpretive Statements 1100 Sinus rhythm 1102 Sinus arrhythmia 9110 normal ECG Compared to ECG 12/04/2023 12:28:07 Atrial fibrillation no longer present Electronically Signed On 02-02-2024 5:29:27 EST by ADINA LANGLEY Dictated By: Adina Langley M.D. Signed By: 02/02/24528 DD/ 44 TD/TT: Data Architect Manager:D-DIMER Reviewed date:12/29/2024 04:52:32 PM Interpretation: Performing Lab: Notes/Report: [facility] ,D Dimer2.02<=0.59 mg/L FEU RESULTS CALLED TO DR. ESTRADA Increases in D-Dimer concentration observed with thromboembolic events can be variable due to localization, size, and age of the thrombus. Therefore, a thromboembolic event cannot be diagnosed with certainty on the basis of the reference range. D-Dimers may also be elevated for a variety of disorders including advanced age, , coronary disease, cancer, liver disease, infection, inflammation, hematoma, DIC, trauma, post-surgery, diabetes, thrombolytic or anticoagulant therapy, stress, and generalized hospitalization. Performing Lab:see noteML - [facility] LBTroponin I High Sensitivity Reviewed date:02/02/2024 10:16:01 AM Interpretation: Performing Lab: Notes/Report: [facility] ,Troponin I High Hoiugkoiejh46.34.0-51.3 pg/mL CUT-OFF POINTS HAVE BEEN ESTABLISHED BASED ON THE FOURTH UNIVERSAL DEFINITION OF MYOCARDIAL INFARCTION. THE UPPER REFERENCE LIMIT (URL) OF TROPONIN, DEFINED THE 99TH PERCENTILE OF cTnI DISTRIBUTION IN A REFERENCE POPULATION, HAS BEEN CONFIRMED THE DECISION THRESHOLD FOR CA DIAGNOSIS. 99TH PERCENTILE = 51.4 PG/ML NOTE: HIGH-SENSITIVITY TROPONIN ASSAY IS NOT INTENDED TO BE USED IN ISOLATION BUT SHOULD BE INTERPRETED IN CONJUNCTION WITH OTHER DIAGNOSTIC AND CLINICAL INFORMATION. Performing Lab:see noteML - [facility] LBUA (CLEAN or CATCH) STABLE HELPER or MICRO IF IND. Reviewed date:12/29/2024 04:52:32 PM Interpretation: Performing Lab: Notes/Report: [facility] ,Color UrineLT. YELLOWYELLOWClarity UrineCLEARCLEARSpecific Harmony Urine1.010 1.005-1.025pH Urine6.05.0-9.0Protein UrineNEGATIVENEG/TRACE mg/dLGlucose Urine UANEGATIVENEGATIVE mg/dLBilirubin UrineNEGATIVENEGATIVEKetones UrineNEGATIVE NEGATIVE mg/dLBlood UrineNEGATIVENEGATIVENitrite UrineNEGATIVENEGATIVE Urobilinogen Urine1.00.2-1.0 EU/dLLeukocyte Esterase UrineMODERATENEGATIVEUrine Microscopic IndicatedYESPerforming Lab:see note - [facility] LB URINE MICROSCOPIC ONLY Reviewed date:12/29/2024 04:52:32 PM Interpretation: Performing Lab: Notes/Report: [facility] ,WBC [id number] SEEN #/HPFRBC Urine0-20-2 #/HPFBacteria UrineSMALLNONE SEEN #/HPFMucus UrineSMALLNONE SEENSquamous Epithelial Cell UrineFEWNONE/RARE #/LPF Transitional Epi Cells UrineRARENONE SEEN #/LPFCrystals Seen?None SeenNone Seen #/HPFCast Seen?SEENNONE SEEN #/LPFHyaline Casts UrineRAREUrine Culture Indicated YES-FRMCPerforming Lab:see note - [facility] LBProthrombin Time INR Reviewed date:02/02/2024 10:16:00 AM Interpretation: Performing Lab: Notes/Report: [facility] ,Prothrombin Time11.19.0-11.6 secINR1.05 DESIRED INR: 2.0-3.0 CONDITIONS NOT LISTED BELOW 2.5-3.5 FOR PROSTHETIC HEART VALVE REPLACEMENT 2.5-3.5 RECURRENT THROMBOSIS Performing Lab:see note - [facility] LBECG 12 lead Reviewed date:12/29/2024 04:52:32 PM Interpretation: Performing Lab: Notes/Report: Source Facility: [place] [address] Electrocardiograph Report Draft Patient: ZACHARY MAYNARD MR#: [id number] : 1945 Acct:[id number] Age/Sex: 79 / F ADM Date: Loc: ER Attending Dr: Ordering Physician: Jaclyn Estrada Date of Service: 12/29/24 Procedure(s): ECG 12 lead Accession Number(s): [id number] cc: [facility] Test Date: 2024-12-29 Pat Name: ZACHARY MAYNARD Department: Room: - Gender: Female Clinical Registered Nurse: : 1945 Requested By: [id number] Order Number: [id number] Reading MD: Measurements Intervals [place] Rate: 53 P: 259 NJ: 134 QRS: -12 QRSD: 84 T: 43 QT: 466 QTc: 450 Interpretive Statements 1300 Junctional rhythm 9140 abnormal rhythm ECG No previous ECG available for comparison Dictated By: Willian Guthrie Signed By: DD/ 1157 TD/TT: Data Architect Manager:UA RANDOM W or MICROSCOPIC Reviewed date:02/02/2024 10:16:00 AM Interpretation: Performing Lab: Notes/Report: [facility] ,Color UrineLT. YELLOWYELLOWClarity UrineCLEARCLEARSpecific Harmony Urine1.015 1.005-1.025pH Urine6.05.0-9.0Protein Sycan94JHU/TRACE mg/dLGlucose Urine UA NEGATIVENEGATIVE mg/dLBilirubin UrineNEGATIVENEGATIVEKetones UrineNEGATIVE NEGATIVE mg/dLBlood UrineNEGATIVENEGATIVENitrite UrineNEGATIVENEGATIVE Urobilinogen Urine0.20.2-1.0 EU/dLLeukocyte Esterase UrineNEGATIVENEGATIVEWBC Urine0-2NONE SEEN #/HPFRBC Urine0-20-2 #/HPFBacteria UrineTRACENONE SEEN #/HPF Mucus UrineNONE SEENNONE SEENSquamous Epithelial Cell UrineRARENONE/RARE #/LPF Crystals Seen?None SeenNone Seen #/HPFCast Seen?NONE SEENNONE SEEN #/LPFUrine Culture IndicatedNOPerforming Lab:see noteML - [facility] LBCT angio chest Reviewed date:12/29/2024 05:27:30 PM Interpretation: Performing Lab: Notes/Report: Source Facility: [facility]-[address] [place] [address] [place] [address] CT Scan Report Signed Patient: ZACHARY MAYNARD MR#: [id number] : 1945 Acct:[id number] Age/Sex: 79 / F ADM Date: 12/29/24 Loc: ER Attending Dr: Ordering Physician: Jaclyn Estrada Date of Service: 12/29/24 Procedure(s): CT angio chest Accession Number(s): [id number] cc: Adina Langley M.D. The [address] [address] Patient Name: ZACHARY MAYNARD MRN: [id number] date: 1945 Sex: F Assigned Patient Location: ER Current Patient Location: ER Accession/Order Number: [id number] Exam Date: 12/29/2024 16:00 Report Date: 12/29/2024 16:56 At the request of: JACLYN ESTRADA MD Procedure: CT angio chest CTA Chest with PE protocol TECHNIQUE: Axial imaging with 2-D and 3-D reconstruction. The CT exam was performed using one or more the following dose reduction techniques: Automated exposure control, adjustment of the MA and/or Kv according to patient size, or use of the iterative reconstruction technique. History: Shortness of breath. Elevated d-dimer COMPARISON: 12/17/2024 THYROID: Unremarkable TRACHEA AND BRONCHI: Patent ESOPHAGUS: Unremarkable. HEART: Cardiomegaly PERICARDIAL EFFUSION: None CORONARY ARTERY CALCIFICATION: Present MEDIASTINUM: No adenopathy. No pneumoperitoneum. No mediastinal hematoma. PULMONARY MYLENE: No hilar mass or adenopathy is seen. THORACIC AORTA no aneurysm or dissection. Large volume of atherosclerosis. PULMONARY EMBOLUS: None LUNG NODULE None LUNGS: Mild emphysema PLEURAL EFFUSION: None PNEUMOTHORAX: No pneumothorax seen. CHEST WALL: No abnormality AXILLA: Unremarkable BONY STRUCTURES thoracic spondylosis UPPER ABDOMEN: Images of the upper abdomen are noncontributory. CT/CT angio chest IMPRESSION: No acute pulmonary embolus. Impression dictated by: Louie Nuñez M.D. 12/29/2024 4:56 PM [facility]ictation [facility] Electronically authenticated by: [id number] Y Date: 12/29/2024 16:56 Dictated By: Louie Nuñez D.O. Signed By: 12/29/249 DD/ 55 TD/TT: Data Architect Manager:CT stroke head/brain wo con Reviewed date:12/29/2024 04:52:32 PM Interpretation: Performing Lab: Notes/Report: Source Facility: [place] [address] [place] [address] CT Scan Report Signed Patient: ZACHARY MAYNARD MR#: [id number] : 1945 Acct:[id number] Age/Sex: 79 / F ADM Date: 12/29/24 Loc: ER Attending Dr: Ordering Physician: Jaclyn Estrada Date of Service: 12/29/24 Procedure(s): CT stroke head/brain wo con Accession Number(s): [id number] cc: Adina Langley M.D. The [place] [address] Patient Name: ZACHARY MAYNARD MRN: [id number] date: 1945 Sex: F Assigned Patient Location: ER Current Patient Location: ED.MAIN Accession/Order Number: [id number] Exam Date: 12/29/2024 12:25 Report Date: 12/29/2024 12:41 At the request of: JACLYN ESTRADA MD Procedure: CT stroke head/brain wo con CT BRAIN WITHOUT CONTRAST: CLINICAL HISTORY: ams ,black spots COMPARISON: 12/17/2024 TECHNIQUE: Contiguous axial unenhanced images were obtained through the brain. This CT exam was performed using one or more following dose reduction techniques: Automated exposure control, adjustment of the mA and/or kV according to patient size, or use of iterative reconstruction technique. FINDINGS: There is no evidence of midline shift, intra or extra-axial fluid collection, hemorrhage or CT evidence of acute large vascular distribution stroke. Generalized involutional change. Moderate to severe chronic small vessel ischemic disease. Remote left caudate head lacunar stroke. Cataract surgery. Mild sinus mucosal thickening. The surrounding soft tissues are normal. CT/CT stroke head/brain wo con IMPRESSION: NO ACUTE INTRACRANIAL ABNORMALITY. MODERATE SEVERE CHRONIC SMALL VESSEL CHANGES. Impression dictated by: Ariel Dawkins M.D. 12/29/2024 12:41 PM Dictation Location: [place] [address] Electronically authenticated by: [id number] Y Date: 12/29/2024 12:41 Dictated By: Ariel Dawkins M.D. Signed By: 12/29/24 1243 DD/ 1241 TD/TT: Data Architect Manager:Troponin I High Sensitivity Reviewed date:12/29/2024 04:52:32 PM Interpretation: Performing Lab: Notes/Report: [facility] ,Troponin I High Qigfndkwuhl98.74.0-51.3 pg/mL CUT-OFF POINTS HAVE BEEN ESTABLISHED BASED ON THE FOURTH UNIVERSAL DEFINITION OF MYOCARDIAL INFARCTION. THE UPPER REFERENCE LIMIT (URL) OF TROPONIN, DEFINED THE 99TH PERCENTILE OF cTnI DISTRIBUTION IN A REFERENCE POPULATION, HAS BEEN CONFIRMED THE DECISION THRESHOLD FOR CA DIAGNOSIS. 99TH PERCENTILE = 51.4 PG/ML NOTE: HIGH-SENSITIVITY TROPONIN ASSAY IS NOT INTENDED TO BE USED IN ISOLATION BUT SHOULD BE INTERPRETED IN CONJUNCTION WITH OTHER DIAGNOSTIC AND CLINICAL INFORMATION. Performing Lab:see noteML - [facility] LBMAGNESIUM (Not yet reviewed by provider) Interpretation: Performing Lab: Notes/Report: [facility] ,Magnesium2.01.8-2.4 mg/dLPerforming Lab:see noteML - [facility] LB PROF 14(COMP METB) (Not yet reviewed by provider) Interpretation: Performing Lab: Notes/Report: [facility] ,Okmxww952932-068 mmol/LPotassium3.53.5-5.1 mmol/BIddqxxot46570-695 mmol/LCarbon Qnljjlf10.921.0-32.0 mmol/LAnion Gap10.8Kjowqsj2613-653 mg/dLBlood Urea Nitrogen 17.07.0-18.0 mg/dLCreatinine1.080.55-1.02 mg/dLEstimated GFR ( Ulvzyfx77 >=60 mL/min/1.73m 2Estimated GFR (Non- Ame49>=60 mL/min/1.73m 2BUN Creatinine Ratio15.9Fhggxol7.68.5-10.1 mg/dLBilirubin Total0.50.2-1.0 mg/dL Aspartate Amino Xxbevlsdxss2878-55 U/LAlanine Jhljqrmzjeszwzwi7633-14 U/L Alkaline Uykheewniqg93549-847 U/LTotal Protein5.26.4-8.2 g/dLAlbumin Level2.5 3.4-5.0 g/dLGlobulin2.7Albumin Globulin Ratio0.9Performing Lab:see noteML - [facility] LBTSH (Not yet reviewed by provider) Interpretation: Performing Lab: Notes/Report: [facility] ,Thyroid Stimulating Hormone1.9940.358-3.740 uIU/mLPerforming Lab:see note - [facility] LBCBC no Diff (Hemogram) (Not yet reviewed by provider) Interpretation: Performing Lab: Notes/Report: [facility] ,White Blood Count5.84.0-11.0 10 3/uLRed Blood Count3.414.20-5.40 10 6/uL Hemoglobin9.912.0-16.0 g/iWOvbeotbvzj23.036.0-48.0 %Mean Corpuscular Yycgtl01.8 81.0-99.0 fLMean Corpuscular Uwgpmuusme37.026.7-34.0 pgMean Corpuscular HGB Conc 30.929.9-35.2 g/dLRed Cell Distribution Width14.611.0-15.0 %Platelet Cphfj781 150-450 10 3/uLMean Platelet Pcyjde24.49.5-13.5 fLPerforming Lab:see note - [facility] LBECG 12 lead (Not yet reviewed by provider) Interpretation: Performing Lab: Notes/Report: Source Facility: [place] [address] Electrocardiograph Report Draft Patient: ZACHARY MAYNARD MR#: [id number] : 1945 Acct:[id number] Age/Sex: 79 / F ADM Date: 12/29/24 Loc: MS 230-[address]: Nena Barron M.D. Ordering Physician: Nena Barron M.D. Date of Service: 12/30/24 Procedure(s): ECG 12 lead Accession Number(s): [id number] cc: [facility] Test Date: 2024-12-30 Pat Name: ZACHARY MAYNARD Department: Room: [facility] Gender: Female Clinical Registered Nurse: : 1945 Requested By: [id number] Order Number: [id number] Reading MD: Measurements Intervals [place] Rate: 60 P: -72 NJ: 131 QRS: 0 QRSD: 93 T: 39 QT: 359 QTc: 359 Interpretive Statements JUNCTIONAL RHYTHM NONSPECIFIC ST T-WAVE ABNORMALITY ABNORMAL RHYTHM ECG No previous ECG available for comparison Dictated By: Willian Guthrie Signed By: DD/ 0518 TD/TT: Data Architect Manager:PROF Ospina(COMP METB) Reviewed date:02/02/2024 10:16:01 AM Interpretation: Performing Lab: Notes/Report: [facility] ,Bvocol933965-706 mmol/LPotassium4.43.5-5.1 mmol/AVafvitja00913-782 mmol/LCarbon Tufammz16.221.0-32.0 mmol/LAnion Gap9.6Ygklgps71358-685 mg/dLBlood Urea Nitrogen 22.07.0-18.0 mg/dLCreatinine1.440.55-1.02 mg/dLEstimated GFR ( Nmygklv11 >=60 mL/min/1.73m 2Estimated GFR (Non- Ame35>=60 mL/min/1.73m 2BUN Creatinine Ratio15.2Oiyxpst2.48.5-10.1 mg/dLBilirubin Total0.60.2-1.0 mg/dL Aspartate Amino Esotkasldol5779-32 U/LAlanine Hjiyrjppgutbzitt5697-81 U/L Alkaline Cucxhwtibfi83025-835 U/LTotal Protein6.06.4-8.2 g/dLAlbumin Level2.6 3.4-5.0 g/dLGlobulin3.4Albumin Globulin Ratio0.8Performing Lab:see noteML - [facility] LBLACTATE or LACTIC ACID Reviewed date:02/02/2024 10:16:01 AM Interpretation: Performing Lab: Notes/Report: [facility] ,Lactate/Lactic Acid0.70.4-2.0 mmol/LPerforming Lab:see noteML - [facility] LBCBC AUTO DIFF Reviewed date:02/02/2024 10:16:01 AM Interpretation: Performing Lab: Notes/Report: [facility] ,White Blood Count9.64.0-11.0 10 3/uLRed Blood Count3.114.20-5.40 10 6/uL Hemoglobin8.812.0-16.0 g/wPBfurxrulfa03.836.0-48.0 %Mean Corpuscular Whwomw40.6 81.0-99.0 fLMean Corpuscular Offnuklgdr19.326.7-34.0 pgMean Corpuscular HGB Conc 30.629.9-35.2 g/dLRed Cell Distribution Width16.611.0-15.0 %Platelet Ylioe430 150-450 10 3/uLMean Platelet Fohrsz22.49.5-13.5 fLNeutrophils Percent Auto78.3 43.0-75.0 %Lymphocytes Percent Auto12.920.5-60.0 %Monocytes Percent Auto3.81.7- 12.0 %Eosinophils Percent Auto3.80.9-7.0 %Basophils Percent Auto0.40.2-2.0 % Immature Granulocytes Pct Auto0.80.0-0.5 %Neutrophils Absolute Auto7.51.4-6.5 10 3/uLLymphocytes Absolute Auto1.21.2-3.8 10 3/uLMonocytes Absolute Auto0.40.3-0.8 10 3/uLEosinophils Absolute Auto0.40.0-0.7 10 3/uLBasophils Absolute Auto0.00.0- 0.1 10 3/uLImmature Granulocytes Abs Auto0.080.00-0.03 10 3/uLPerforming Lab:see noteML - [facility] LBBNP Reviewed date:02/02/2024 10:16:01 AM Interpretation: Performing Lab: Notes/Report: [facility] ,NT Pro B Type Natriuretic Rqig7310.0<=1800.0 pg/mLRESULTS CALLED TO RENEE CEDEÑO) IN ERPerforming Lab:see noteML - [facility] LBBLOOD GASES BTY Reviewed date:02/02/2024 10:16:01 AM Interpretation: Performing Lab: Notes/Report: [facility] ,pH ABG7.3827.350-7.450ABG HCO628.435.0-45.0 mmHgPO2 ABG57.380.0-100.0 mmHg RESULTS CALLED TO GILBERT MESA(RAMÓN) IN ERHCO3 ABG27.622.0-26.0 mmol/LBase Excess ABG2.5-2.0-2.0 mmol/LOxygen Saturation ABG90.7Allen TestPOSPOSITIVEO2 ModeNASAL CANNULALiters per Uoxtih2Ytvlbcag SiteLEFT RADIALPerforming Lab:see noteML - [facility] LBUS abdominal aortic aneurysm Reviewed date:01/06/2024 06:36:05 PM Interpretation: Performing Lab: Notes/Report: Source Facility: [place] [address] Ultrasound Report Signed Patient: ZACHARY MAYNARD MR#: [id number] : 1945 Acct:[id number] Age/Sex: 78 / F ADM Date: 01/06/24 Loc: US Attending Dr: Dipti Fulton M.D. Ordering Physician: Dipti Fulton M.D. Date of Service: 01/06/24 Procedure(s): US abdominal aortic aneurysm Accession Number(s): [id number] cc: Adina Langley M.D.; Dipti Fulton M.D. [place] [address] Patient Name: ZACHARY MAYNARD MRN: [id number] date: 1945 Sex: F Assigned Patient Location: US Current Patient Location: US Accession/Order Number: [id number] Exam Date: 01/06/2024 08:00 Report Date: 01/06/2024 [...] By: 01/06/24 1256 DD/ 1253 TD/TT: Data Architect Manager:UA DIP NONAUTO WO MICRO ([id number]) - IN OFFICE Reviewed date:10/20/2024 11:06:25 AM Interpretation: Performing Lab: Notes/Report: COLORYellowCLARITYClearGLUCOSENegBILIRUBINNegKETONENegSPECIFIC GRAVITY1.010BLOOD DvcDG5ATOIEXV+UROBILINOGENNegNITRITENegLEUKOCYTE ESTERASE++UA DIP NONAUTO WO MICRO ([id number]) - IN OFFICE Reviewed date:08/16/2024 07:19:28 PM Interpretation: Performing Lab: Notes/Report: COLORstrawCLARITYclearGLUCOSEnBILIRUBINnKETONEnSPECIFIC GRAVITY1.783TFAUItUJ9 PROTEINtraceUROBILINOGENnNITRITEnLEUKOCYTE ESTERASE++TSH Reviewed date:08/16/2024 07:19:28 PM Interpretation: Performing Lab: Notes/Report: [facility] ,Thyroid Stimulating Hormone4.4180.358-3.740 uIU/mLPerforming Lab:see noteML - [facility] LBT4 Reviewed date:08/16/2024 07:19:28 PM Interpretation: Performing Lab: Notes/Report: [facility] ,T4 Arlzzlgpb85.304.80-13.90 ug/dLPerforming Lab:see noteML - [facility] LBFREE T3 Reviewed date:08/16/2024 07:19:28 PM Interpretation: Performing Lab: Notes/Report: [facility] ,Free T31.702.18-3.98 pg/mLPerforming Lab:see noteML - [facility] LB PROTEIN RAND URINE Reviewed date:08/18/2024 09:07:26 PM Interpretation: Performing Lab: Notes/Report: [facility] ,Total Protein Urine Jzeqgy16.1<=11.9 mg/dLPerforming Lab:see noteML - [facility] LBUA RANDOM W or MICROSCOPIC Reviewed date:08/18/2024 09:07:26 PM Interpretation: Performing Lab: Notes/Report: [facility] ,Color UrineLT. YELLOWYELLOWClarity UrineCLEARCLEARSpecific Harmony Urine1.015 1.005-1.025pH Urine5.55.0-9.0Protein UrineNEGATIVENEG/TRACE mg/dLGlucose Urine UANEGATIVENEGATIVE mg/dLBilirubin UrineNEGATIVENEGATIVEKetones UrineNEGATIVE NEGATIVE mg/dLBlood UrineNEGATIVENEGATIVENitrite UrineNEGATIVENEGATIVE Urobilinogen Urine0.20.2-1.0 EU/dLLeukocyte Esterase UrineNEGATIVENEGATIVEWBC UrineNONE SEENNONE SEEN #/HPFRBC UrineNONE SEEN0-2 #/HPFBacteria UrineTRACENONE SEEN #/HPFMucus UrineNONE SEENNONE SEENSquamous Epithelial Cell UrineRARE NONE/RARE #/LPFCrystals Seen?None SeenNone Seen #/HPFCast Seen?NONE SEENNONE SEEN #/LPFPerforming Lab:see noteML - [facility] LBUrine Culture - [facility] Reviewed date:08/19/2024 07:15:04 PM Interpretation: Performing Lab: Notes/Report: [facility] ,Urine Culture - FRMCSee Below For Report Urine Culture - [facility] <9,000 colonies/ml mixed Urine Culture - FRMCbacterial skin contaminants Urine Culture - [facility] <9,000 colonies/ml mixed Urine Culture - [facility]2 Days Urine Culture - [facility] <9,000 colonies/ml mixed Urine Culture - [facility] Urine Culture - [facility] <9,000 colonies/ml mixed Urine Culture - [facility]esting [facility] Urine [facility] <9,000 colonies/ml mixed Urine Culture - [id number] [place] [address] Urine Culture - [facility] <9,000 colonies/ml mixed Performing Lab:see noteML - [facility] LBHEMOGLOBIN Reviewed date:08/23/2024 09:16:19 PM Interpretation: Performing Lab: Notes/Report: [facility] ,Bfokawlamv47.612.0-16.0 g/dLPerforming Lab:see noteML - [facility] LBPROF CHEM 8 (BAS METB) Reviewed date:08/23/2024 09:16:19 PM Interpretation: Performing Lab: Notes/Report: [facility] ,Mjdtqo054557-625 mmol/LPotassium4.23.5-5.1 mmol/SPlvcypwz43808-611 mmol/LCarbon Zwrlyvo28.721.0-32.0 mmol/LAnion Gap11.4Bloiuyn60809-125 mg/dLBlood Urea Spnayotk04.07.0-18.0 mg/dLCreatinine1.250.55-1.02 mg/dLEstimated GFR ( Ipukvhl70>=60 mL/min/1.73m 2Estimated GFR (Non- Ame41>=60 mL/min/1.73m 2 BUN Creatinine Ratio32.4Xkxccja8.38.5-10.1 mg/dLPerforming Lab:see noteML - [facility] LBPTT Reviewed date:08/23/2024 09:16:19 PM Interpretation: Performing Lab: Notes/Report: [facility] ,Partial Thromboplastin Time27.622.3-36.2 secPerforming Lab:see noteML - [facility] LBProthrombin Time INR Reviewed date:08/23/2024 09:16:19 PM Interpretation: Performing Lab: Notes/Report: [facility] ,Prothrombin Time10.49.0-11.6 secINR0.98 DESIRED INR: 2.0-3.0 CONDITIONS NOT LISTED BELOW 2.5-3.5 FOR PROSTHETIC HEART VALVE REPLACEMENT 2.5-3.5 RECURRENT THROMBOSIS Performing Lab:see noteML - [facility] LBMRSA Screening Culture Reviewed date:08/25/2024 07:11:59 PM Interpretation: Performing Lab: Notes/Report: [facility] ,MRSA Screening CultureSee Below For Report MRSA Screening Culture MRSA Screening CultureNegative MRSA Screening Culture MRSA Screening CulturePerformed at: CB - [facility] [place] MRSA Screening Culture MRSA Screening [address] [place], [place] [id number] MRSA Screening Culture MRSA Screening CultureLab Director: John Paul Don PhD, Phone: [phone] MRSA Screening Culture Performing Lab:see note LC - [facility] LB SEE REPORT - Extruder Id information not found for OBX-specific monomer recovery supervisor legend CA echo doppler complete Reviewed date:09/08/2024 08:02:24 PM Interpretation: Performing Lab: Notes/Report: Source Facility: [place] [address] [place] [address] Cardiology Report Signed Patient: ZACHARY MAYNARD MR#: [id number] : 1945 Acct:[id number] Age/Sex: 79 / F ADM Date: 09/08/24 Loc: CARD Attending Dr: Adina Langley M.D. Ordering Physician: Adina Langley M.D. Date of Service: 09/08/24 Procedure(s): CA echo doppler complete Accession Number(s): [id number] cc: Adina Langley M.D. Patient Name: ZACHARY MAYNARD MR#: [id number] : 1945 Exam Date: 09/08/2024 Ordering Doctor: DR DAINA LANGLEY . ECHOCARDIOGRAM REPORT PROCEDURE: CA ECHO [...] Signed By: 09/08/241813 DD/ 12 TD/TT: Data Architect Manager:US right upper quadrant Reviewed date:09/09/2024 05:20:20 PM Interpretation: Performing Lab: Notes/Report: Source Facility: [place] [address] Ultrasound Report Signed Patient: ZACHARY MAYNARD MR#: [id number] : 1945 Acct:[id number] Age/Sex: 79 / F ADM Date: 09/09/24 Loc: US Attending Dr: Adina Langley M.D. Ordering Physician: Adina Langley M.D. Date of Service: 09/09/24 Procedure(s): US right upper quadrant Accession Number(s): [id number] cc: Adina Langley M.D. [place] [address] Patient Name: ZACHARY MAYNARD MRN: [id number]:[id number] date: 1945 Sex: F Assigned Patient Location: Current Patient Location: US Accession/Order Number: [id number] Exam Date: 09/09/2024 11:28 Report Date: 09/09/2024 [...] Arizmendi M.D. 09/09/2024 11:31 AM Dictation Location: [place] [address] Electronically authenticated by: [id number] Y Date: 09/09/2024 11:31 Dictated By: Sammie Arizmendi M.D. Signed By: 09/09/24 1134 DD/ 1131 TD/TT: Data Architect Manager:BNP Reviewed date:12/17/2024 03:32:32 PM Interpretation: Performing Lab: Notes/Report: [facility] ,NT Pro B Type Natriuretic Tahu37462.0<=1800.0 pg/mLRESULTS CALLED TO DR FOREMAN IN ERPerforming Lab:see noteML - [facility] LBCBC AUTO DIFF Reviewed date:12/17/2024 03:32:32 PM Interpretation: Performing Lab: Notes/Report: [facility] ,White Blood Count10.64.0-11.0 10 3/uLRed Blood Count4.194.20-5.40 10 6/uL Bwxilbnegs18.712.0-16.0 g/aGYuoijhgyed68.836.0-48.0 %Mean Corpuscular Yaturc06.0 81.0-99.0 fLMean Corpuscular Uzsvpnkmzq93.326.7-34.0 pgMean Corpuscular HGB Conc 31.929.9-35.2 g/dLRed Cell Distribution Width13.811.0-15.0 %Platelet Avwks524 150-450 10 3/uLMean Platelet Sdiata80.29.5-13.5 fLNeutrophils Percent Auto84.2 43.0-75.0 %Lymphocytes Percent Auto9.120.5-60.0 %Monocytes Percent Auto5.11.7- 12.0 %Eosinophils Percent Auto0.00.9-7.0 %Basophils Percent Auto0.10.2-2.0 % Immature Granulocytes Pct Auto1.50.0-0.5 %Neutrophils Absolute Auto9.01.4-6.5 10 3/uLLymphocytes Absolute Auto1.01.2-3.8 10 3/uLMonocytes Absolute Auto0.50.3- 0.8 10 3/uLEosinophils Absolute Auto0.00.0-0.7 10 3/uLBasophils Absolute Auto0.0 0.0-0.1 10 3/uLImmature Granulocytes Abs Auto0.160.00-0.03 10 3/uLPerforming Lab:see noteML - [facility] LBPROF 14(COMP METB) Reviewed date:12/17/2024 03:32:32 PM Interpretation: Performing Lab: Notes/Report: [facility] ,Wbaswl310098-323 mmol/LPotassium3.93.5-5.1 mmol/KObnhbxgb55507-540 mmol/LCarbon Zczytae52.621.0-32.0 mmol/LAnion Gap15.2Dfzixvk66885-909 mg/dLBlood Urea Fwzqawfb73.07.0-18.0 mg/dLCreatinine1.290.55-1.02 mg/dLEstimated GFR ( Cqpvcam76>=60 mL/min/1.73m 2Estimated GFR (Non- Ame40>=60 mL/min/1.73m 2 BUN Creatinine Ratio20.0Euthobn6.48.5-10.1 mg/dLBilirubin Total0.30.2-1.0 mg/dL Aspartate Amino Ghjqzyezgsb4193-37 U/LAlanine Kbnhuqgeevwaknor6456-07 U/L Alkaline Hmhnvqtcxze84490-565 U/LTotal Protein6.56.4-8.2 g/dLAlbumin Level3.5 3.4-5.0 g/dLGlobulin3.0Albumin Globulin Ratio1.2Performing Lab:see note - [facility] LBUA RANDOM W or MICROSCOPIC Reviewed date:12/17/2024 03:32:32 PM Interpretation: Performing Lab: Notes/Report: [facility] ,Color UrineLT. YELLOWYELLOWClarity UrineCLEARCLEARSpecific Harmony Urine<=1.005 1.005-1.025pH Urine6.05.0-9.0Protein UrineNEGATIVENEG/TRACE mg/dLGlucose Urine XI556TPIATXRK mg/dLBilirubin UrineNEGATIVENEGATIVEKetones UrineNEGATIVENEGATIVE mg/dLBlood UrineSMALLNEGATIVENitrite UrineNEGATIVENEGATIVEUrobilinogen Urine0.2 0.2-1.0 EU/dLLeukocyte Esterase UrineNEGATIVENEGATIVEWBC UrineNONE SEENNONE SEEN #/HPFRBC Urine0-20-2 #/HPFBacteria UrineNONE SEENNONE SEEN #/HPFMucus UrineNONE SEENNONE SEENSquamous Epithelial Cell UrineRARENONE/RARE #/LPFCrystals Seen? None SeenNone Seen #/HPFCast Seen?NONE SEENNONE SEEN #/LPFPerforming Lab:see noteML - [facility] LBTroponin I High Sensitivity Reviewed date:12/17/2024 03:32:32 PM Interpretation: Performing Lab: Notes/Report: [facility] ,Troponin I High Mwydklobpcw20.14.0-51.3 pg/mL CUT-OFF POINTS HAVE BEEN ESTABLISHED BASED ON THE FOURTH UNIVERSAL DEFINITION OF MYOCARDIAL INFARCTION. THE UPPER REFERENCE LIMIT (URL) OF TROPONIN, DEFINED THE 99TH PERCENTILE OF cTnI DISTRIBUTION IN A REFERENCE POPULATION, HAS BEEN CONFIRMED THE DECISION THRESHOLD FOR CA DIAGNOSIS. 99TH PERCENTILE = 51.4 PG/ML NOTE: HIGH-SENSITIVITY TROPONIN ASSAY IS NOT INTENDED TO BE USED IN ISOLATION BUT SHOULD BE INTERPRETED IN CONJUNCTION WITH OTHER DIAGNOSTIC AND CLINICAL INFORMATION. Performing Lab:see noteML - [facility] LBCT CHEST W CON Reviewed date:12/17/2024 03:32:32 PM Interpretation: Performing Lab: Notes/Report: Source Facility: [facility]-[address] [place] [address] [place] [address] CT Scan Report Signed Patient: ZACHARY MAYNARD MR#: [id number] : 1945 Acct:[id number] Age/Sex: 79 / F ADM Date: 12/17/24 Loc: ER Attending Dr: Ordering Physician: Mago Foreman Date of Service: 12/17/24 Procedure(s): CT chest w con Accession Number(s): [id number] cc: Adina Langley M.D. [facility] [place] [id number] Patient Name: ZACHARY MAYNARD MRN: [id number] date: 1945 Sex: F Assigned Patient Location: ED.MAIN Current Patient Location: ER Accession/Order Number: [id number] Exam Date: 12/17/2024 12:25 Report Date: 12/17/2024 13:26 At the request of: MAGO FOREMAN DO Procedure: CT abdomen pelvis w con CT chest w con, CT abdomen pelvis w con 12/17/2024 12:40 PM SIGN AND SYMPTOMS: fall on Eliquis, left rib pain, dizziness, leg weakness CONTRAST: 100 mL of intravenous Omnipaque 300 TECHNIQUE: Multidetector CT axial slices of the chest, abdomen and pelvis were obtainedwith IV contrast. Multiplanar reformats were performed and viewed on a separate workstation and reviewed to further define anatomy and possible pathology. CT was performed with one or more of the following dose reduction techniques: Automated exposure control, adjustment of the mA and/or kV according to patient size, or use of iterative reconstruction technique. COMPARISON: None. FINDINGS: Lower neck: Thyroid gland within normal limits, no supraclavicle adenopathy. Vessels: Calcified and noncalcified plaque is noted in the aortic arch with areas of ulceration along the lateral and posterior wall of the aortic arch and descending thoracic aorta. Mediastinum and Mylene: Within normal limits. Heart: Normal size. No pericardial effusion. Airways: Within normal limits Lungs: Emphysematous changes are noted in the lung parenchyma. Pleura: Within normal limits. Chest Wall: Within normal limits. Abdomen: Liver: within normal limits. Bile Ducts: Normal caliber. Gallbladder: No calcified gallstones. Normal caliber wall. Pancreas: within normal limits. Spleen: within normal limits. Adrenals: within normal limits. Kidneys: There is renal cortical atrophy bilaterally. Similar focal cysts are noted in the left renal cortex. Pelvis: Reproductive Organs: No pelvic masses. Ureters: within normal limits. Bladder: within normal limits. Bowel: There are uncomplicated colonic diverticula. There is no evidence of bowel obstruction. Mesenteric Lymph Nodes: No enlarged mesenteric lymph nodes. Peritoneum: No ascites or free air, no fluid collection. Vessels: Atherosclerotic changes are noted in the abdominal aorta with evidence of prior stenting of an abdominal aortic aneurysm.. Retroperitoneum: within normal limits. Abdominal Wall: Degenerative changes are noted in the hips with findings suggesting avascular necrosis bilaterally. No evidence of acute displaced fracture. Bones: Degenerative changes are noted in the thoracolumbar spine. CT/CT chest w con IMPRESSION: No evidence of acute traumatic injury within the chest, abdomen, or pelvis. No evidence of fracture. 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 Impression dictated by: Xavier Bonds M.D. 12/17/2024 1:26 PM Dictation Location: [place] [address] Electronically authenticated by: [id number] Y Date: 12/17/2024 13:26 Dictated By: Xavier Bonds M.D. Signed By: 12/17/24 1329 DD/ 132 TD/TT: Data Architect Manager:ECG 12 lead Reviewed date:12/18/2024 03:23:11 PM Interpretation: Performing Lab: Notes/Report: Source Facility: [place] [address] Electrocardiograph Report Signed Patient: ZACHARY MAYNARD MR#: [id number] : 1945 Acct:[id number] Age/Sex: 79 / F ADM Date: 12/17/24 Loc: ER Attending Dr: Ordering Physician: Mago Foreman Date of Service: 12/17/24 Procedure(s): ECG 12 lead Accession Number(s): [id number] cc: [facility] Test Date: 2024-12-17 Pat Name: ZACHARY MAYNARD Department: Room: - Gender: Female Clinical Registered Nurse: : 1945 Requested By: ADINA LANGLEY Order Number: [id number] Reading MD: SCHUYLER ROBLERO M.D. Measurements Intervals [place] Rate: 51 P: 37 [place]: 152 QRS: 34 QRSD: 88 T: 42 QT: 474 QTc: 450 Interpretive Statements 1100 Sinus rhythm 9110 normal ECG Compared to ECG 02/25/2024 18:58:29 Left ventricular hypertrophy no longer present Left-axis deviation no longer present Electronically Signed On 12-17-2024 17:40:14 EDT by SCHUYLER ROBLERO M.D. Dictated By: SCHUYLER ROBLERO Signed By: 12/17/24 1740 DD/ 1103 TD/TT: Data Architect Manager:CT abdomen pelvis w con Reviewed date:12/17/2024 03:32:32 PM Interpretation: Performing Lab: Notes/Report: Source Facility: [place] [address] CT Scan Report Signed Patient: ZACHARY MAYNARD MR#: [id number] : 1945 Acct:[id number] Age/Sex: 79 / F ADM Date: 12/17/24 Loc: ER Attending Dr: Ordering Physician: Mago Foreman Date of Service: 12/17/24 Procedure(s): CT abdomen pelvis w con Accession Number(s): [id number] cc: Adina Langley M.D. [place] [address] Patient Name: ZACHARY MAYNARD MRN: [id number] date: 1945 Sex: F Assigned Patient Location: ED.MAIN Current Patient Location: ER Accession/Order Number: [id number] Exam Date: 12/17/2024 12:25 Report Date: 12/17/2024 13:26 At the request of: MAGO FOREMAN DO Procedure: CT abdomen pelvis w con CT chest w con, CT abdomen pelvis w con 12/17/2024 12:40 PM SIGN AND SYMPTOMS: fall on Eliquis, left rib pain, dizziness, leg weakness CONTRAST: 100 mL of intravenous Omnipaque 300 TECHNIQUE: Multidetector CT axial slices of the chest, abdomen and pelvis were obtainedwith IV contrast. Multiplanar reformats were performed and viewed on a separate workstation and reviewed to further define anatomy and possible pathology. CT was performed with one or more of the following dose reduction techniques: Automated exposure control, adjustment of the mA and/or kV according to patient size, or use of iterative reconstruction technique. COMPARISON: None. FINDINGS: Lower neck: Thyroid gland within normal limits, no supraclavicle adenopathy. Vessels: Calcified and noncalcified plaque is noted in the aortic arch with areas of ulceration along the lateral and posterior wall of the aortic arch and descending thoracic aorta. Mediastinum and Mylene: Within normal limits. Heart: Normal size. No pericardial effusion. Airways: Within normal limits Lungs: Emphysematous changes are noted in the lung parenchyma. Pleura: Within normal limits. Chest Wall: Within normal limits. Abdomen: Liver: within normal limits. Bile Ducts: Normal caliber. Gallbladder: No calcified gallstones. Normal caliber wall. Pancreas: within normal limits. Spleen: within normal limits. Adrenals: within normal limits. Kidneys: There is renal cortical atrophy bilaterally. Similar focal cysts are noted in the left renal cortex. Pelvis: Reproductive Organs: No pelvic masses. Ureters: within normal limits. Bladder: within normal limits. Bowel: There are uncomplicated colonic diverticula. There is no evidence of bowel obstruction. Mesenteric Lymph Nodes: No enlarged mesenteric lymph nodes. Peritoneum: No ascites or free air, no fluid collection. Vessels: Atherosclerotic changes are noted in the abdominal aorta with evidence of prior stenting of an abdominal aortic aneurysm.. Retroperitoneum: within normal limits. Abdominal Wall: Degenerative changes are noted in the hips with findings suggesting avascular necrosis bilaterally. No evidence of acute displaced fracture. Bones: Degenerative changes are noted in the thoracolumbar spine. CT/CT abdomen pelvis w con IMPRESSION: No evidence of acute traumatic injury within the chest, abdomen, or pelvis. No evidence of fracture. 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 Impression dictated by: Xavier Bonds M.D. 12/17/2024 1:26 PM Dictation Location: [place] [address] Electronically authenticated by: [id number] Y Date: 12/17/2024 13:26 Dictated By: Xavier Bonds M.D. Signed By: 12/17/24 8253 DD/ 1326 TD/TT: Data Architect Manager:KAILA HORNE DIFF Reviewed date:12/29/2024 04:52:32 PM Interpretation: Performing Lab: Notes/Report: [facility] ,White Blood Count7.44.0-11.0 10 3/uLRed Blood Count3.604.20-5.40 10 6/uL Xgukwnpcpb60.812.0-16.0 g/iOZvkvzodndt81.736.0-48.0 %Mean Corpuscular Bhtlgu07.4 81.0-99.0 fLMean Corpuscular Qugexqrgje27.026.7-34.0 pgMean Corpuscular HGB Conc 31.129.9-35.2 g/dLRed Cell Distribution Width14.311.0-15.0 %Platelet Wtuam659 150-450 10 3/uLMean Platelet Kzaavw98.29.5-13.5 fLNeutrophils Percent Auto75.0 43.0-75.0 %Lymphocytes Percent Auto15.220.5-60.0 %Monocytes Percent Auto6.51.7- 12.0 %Eosinophils Percent Auto2.30.9-7.0 %Basophils Percent Auto0.30.2-2.0 % Immature Granulocytes Pct Auto0.70.0-0.5 %Neutrophils Absolute Auto5.61.4-6.5 10 3/uLLymphocytes Absolute Auto1.11.2-3.8 10 3/uLMonocytes Absolute Auto0.50.3- 0.8 10 3/uLEosinophils Absolute Auto0.20.0-0.7 10 3/uLBasophils Absolute Auto0.0 0.0-0.1 10 3/uLImmature Granulocytes Abs Auto0.050.00-0.03 10 3/uLPerforming Lab:see noteML - [facility] LBPROF 14(COMP METB) Reviewed date:12/29/2024 04:52:32 PM Interpretation: Performing Lab: Notes/Report: [facility] ,Bhugpy644585-018 mmol/LPotassium3.63.5-5.1 mmol/BTtrnkbug79517-434 mmol/LCarbon Vvuwuzr45.721.0-32.0 mmol/LAnion Gap10.2Mvkjjvz23584-304 mg/dLBlood Urea Ugmrosqc91.07.0-18.0 mg/dLCreatinine1.230.55-1.02 mg/dLEstimated GFR ( Uxtlsbd46>=60 mL/min/1.73m 2Estimated GFR (Non- Ame42>=60 mL/min/1.73m 2 BUN Creatinine Ratio14.4Ibzmsld4.68.5-10.1 mg/dLBilirubin Total0.40.2-1.0 mg/dL Aspartate Amino Zmmcmolkeyx4734-03 U/LAlanine Uczihlycuxahwosy3174-24 U/L Alkaline Gxyqqwesvrh63055-237 U/LTotal Protein5.96.4-8.2 g/dLAlbumin Level2.8 3.4-5.0 g/dLGlobulin3.1Albumin Globulin Ratio0.9Performing Lab:see note - [facility] LBTroponin I High Sensitivity Reviewed date:12/29/2024 04:52:32 PM Interpretation: Performing Lab: Notes/Report: [facility] ,Troponin I High Jpovcmzvgfr46.54.0-51.3 pg/mL CUT-OFF POINTS HAVE BEEN ESTABLISHED BASED ON THE FOURTH UNIVERSAL DEFINITION OF MYOCARDIAL INFARCTION. THE UPPER REFERENCE LIMIT (URL) OF TROPONIN, DEFINED THE 99TH PERCENTILE OF cTnI DISTRIBUTION IN A REFERENCE POPULATION, HAS BEEN CONFIRMED THE DECISION THRESHOLD FOR CA DIAGNOSIS. 99TH PERCENTILE = 51.4 PG/ML NOTE: HIGH-SENSITIVITY TROPONIN ASSAY IS NOT INTENDED TO BE USED IN ISOLATION BUT SHOULD BE INTERPRETED IN CONJUNCTION WITH OTHER DIAGNOSTIC AND CLINICAL INFORMATION. Performing Lab:see note - [facility] LBXR chest 1V Reviewed date:12/29/2024 04:52:32 PM Interpretation: Performing Lab: Notes/Report: Source Facility: [place] [address] XRay Report Signed Patient: ZACHARY MAYNARD MR#: [id number] : 1945 Acct:[id number] Age/Sex: 79 / F ADM Date: 12/29/24 Loc: ER Attending Dr: Ordering Physician: Jaclyn Estrada Date of Service: 12/29/24 Procedure(s): XR chest 1V Accession Number(s): [id number] cc: Adina Langley M.D.; Jaclyn Estrada [place] [address] Patient Name: ZACHARY MAYNARD MRN: [id number] date: 1945 Sex: F Assigned Patient Location: ER Current Patient Location: ED.MAIN Accession/Order Number: [id number] Exam Date: 12/29/2024 12:22 Report Date: 12/29/2024 12:37 At the request of: JACLYN ESTRADA MD Procedure: XR chest 1V PA CHEST: CLINICAL HISTORY: sob COMPARISON: CT chest 12/17/2024 Mildly enlarged cardiomediastinal silhouette. Lungs clear. No effusion or pneumothorax. Aortic knob calcification. XR/XR chest 1V IMPRESSION: NEGATIVE ACUTE PLEURAL-PARENCHYMAL DISEASE. Impression dictated by: Ariel Dawkins M.D. 12/29/2024 12:37 PM Dictation Location: [place] [address] Electronically authenticated by: [id number] Y Date: 12/29/2024 12:37 Dictated By: Ariel Dawkins M.D. Signed By: 12/29/24 1240 DD/ 1237 TD/TT: Data Architect Manager:MYRIAM ABURTO ([id number]) - IN OFFICE Reviewed date:07/27/2024 04:20:30 PM Interpretation: Performing Lab: Notes/Report: COLORyellowCLARITYclearGLUCOSEnBILIRUBINnKETONEnSPECIFIC GRAVITY1.709QBMHWeGH7 PROTEINtraceUROBILINOGENnNITRITEnLEUKOCYTE ESTERASE++XR chest 2V Reviewed date:08/16/2024 06:39:10 PM Interpretation: Performing Lab: Notes/Report: Source Facility: [facility]-[address] [place] [address] [place] [address] XRay Report Signed Patient: ZACHARY MAYNARD MR#: [id number] : 1945 Acct:[id number] Age/Sex: 79 / F ADM Date: 08/16/24 Loc: LAB Attending Dr: Adina Langley M.D. Ordering Physician: Adina Langley M.D. Date of Service: 08/16/24 Procedure(s): XR chest 2V Accession Number(s): [id number] cc: Adina Langley M.D. [place] [address] Patient Name: ZACHARY MAYNARD MRN: [id number] date: 1945 Sex: F Assigned Patient Location: LAB Current Patient Location: LAB Accession/Order Number: [id number] Exam Date: 08/16/2024 16:24 Report Date: 08/16/2024 [...] Bonds M.D. 08/16/2024 4:27 PM Dictation Location: [place] [address] Electronically authenticated by: [id number] Y Date: 08/16/2024 16:27 Dictated By: Xavier Bonds M.D. Signed By: 08/16/24 1629 DD/ 1627 TD/TT: Data Architect Manager:CT head/brain wo con Reviewed date:12/17/2024 03:32:32 PM Interpretation: Performing Lab: Notes/Report: Source Facility: [place] [address] CT Scan Report Signed Patient: ZACHARY MAYNARD MR#: [id number] : 1945 Acct:[id number] Age/Sex: 79 / F ADM Date: 12/17/24 Loc: ER Attending Dr: Ordering Physician: Mago Foreman Date of Service: 12/17/24 Procedure(s): CT head/brain wo con Accession Number(s): [id number] cc: Adina Langley M.D. [address] [address] Patient Name: ZACHARY MAYNARD MRN: [id number] date: 1945 Sex: F Assigned Patient Location: ED.MAIN Current Patient Location: ER Accession/Order Number: [id number] Exam Date: 12/17/2024 12:25 Report Date: 12/17/2024 13:10 At the request of: MAGO FOREMAN DO Procedure: CT cervical spine wo con CT head/brain wo con, CT cervical spine wo con 12/17/2024 12:40 PM SIGNS AND SYMPTOMS: fall on Eliquis TECHNIQUE:Multi-detector CT axial slices of the brain and cervical spine were obtained without IV contrast. Helical,sagittal, coronal, and 3-D reconstructions of the cervical spine were performed. CT was performed with one or more of the following dose reduction techniques: Automated exposure control, adjustment of the mA and/or kV according to patient size, or use of iterative reconstruction technique. COMPARISON: None. FINDINGS: Noncontrast head CT: There is no shift of the midline structures, acute intracranial bleeding, mass effects, or evidence of acute ischemia. 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 This periventricular white matter hypoattenuation. There is age-related cortical atrophy. Atherosclerotic changes are noted in the intracranial segments of the internal carotid arteries and V4 segments of the vertebral arteries. The ventricular system is normal in size. The brainstem and the cerebellum are unremarkable. The visualized intraorbital contents, the visualized paranasal sinuses, and the infratemporal soft tissues show no acute abnormality. The osseous structures in the skull base and the calvarium show no abnormality. Soft tissue swelling is noted in the left frontal scalp. Cervical spine: There is preservation of the vertebral body heights. There is evidence of prior intervertebral fusion at C5-C6. There is mild disc height loss at C3-C4. No fractures or dislocations are seen. The alignment of the cervical spine is normal. The craniocervical junction is within normal limits. Degenerative changes are noted in the lateral axial joint. The prevertebral soft tissues are within normal limits. The paraspinous soft tissues are within normal limits. Atherosclerotic changes are noted in the carotid bifurcations. The lung apices are unremarkable. CT/CT head/brain wo con IMPRESSION: No acute intracranial pathology. Soft tissue swelling is noted in the frontal scalp. No acute cervical spine injury. Degenerative changes are noted in the cervical spine. Impression dictated by: Xavier Bonds M.D. 12/17/2024 1:10 PM Dictation Location: [place] [address] Electronically authenticated by: [id number] Y Date: 12/17/2024 13:10 Dictated By: Xavier Bonds M.D. Signed By: 12/17/24 1312 DD/ 1310 TD/TT: Data Architect Manager:CT cervical spine wo con Reviewed date:12/17/2024 03:32:32 PM Interpretation: Performing Lab: Notes/Report: Source Facility: [place] [address] CT Scan Report Signed Patient: ZACHARY MAYNARD MR#: [id number] : 1945 Acct:[id number] Age/Sex: 79 / F ADM Date: 12/17/24 Loc: ER Attending Dr: Ordering Physician: Mago Foreman Date of Service: 12/17/24 Procedure(s): CT cervical spine wo con Accession Number(s): [id number] cc: Adina Langley M.D. [place] [address] Patient Name: ZACHARY MAYNARD MRN: [id number] date: 1945 Sex: F Assigned Patient Location: ER Current Patient Location: ER Accession/Order Number: [id number] Exam Date: 12/17/2024 12:25 Report Date: 12/17/2024 13:10 At the request of: MAGO FOREMAN DO Procedure: CT cervical spine wo con CT head/brain wo con, CT cervical spine wo con 12/17/2024 12:40 PM SIGNS AND SYMPTOMS: fall on Eliquis TECHNIQUE:Multi-detector CT axial slices of the brain and cervical spine were obtained without IV contrast. Helical,sagittal, coronal, and 3-D reconstructions of the cervical spine were performed. CT was performed with one or more of the following dose reduction techniques: Automated exposure control, adjustment of the mA and/or kV according to patient size, or use of iterative reconstruction technique. COMPARISON: None. FINDINGS: Noncontrast head CT: There is no shift of the midline structures, acute intracranial bleeding, mass effects, or evidence of acute ischemia. 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 This periventricular white matter hypoattenuation. There is age-related cortical atrophy. Atherosclerotic changes are noted in the intracranial segments of the internal carotid arteries and V4 segments of the vertebral arteries. The ventricular system is normal in size. The brainstem and the cerebellum are unremarkable. The visualized intraorbital contents, the visualized paranasal sinuses, and the infratemporal soft tissues show no acute abnormality. The osseous structures in the skull base and the calvarium show no abnormality. Soft tissue swelling is noted in the left frontal scalp. Cervical spine: There is preservation of the vertebral body heights. There is evidence of prior intervertebral fusion at C5-C6. There is mild disc height loss at C3-C4. No fractures or dislocations are seen. The alignment of the cervical spine is normal. The craniocervical junction is within normal limits. Degenerative changes are noted in the lateral axial joint. The prevertebral soft tissues are within normal limits. The paraspinous soft tissues are within normal limits. Atherosclerotic changes are noted in the carotid bifurcations. The lung apices are unremarkable. CT/CT cervical spine wo con IMPRESSION: No acute intracranial pathology. Soft tissue swelling is noted in the frontal scalp. No acute cervical spine injury. Degenerative changes are noted in the cervical spine. Impression dictated by: Xavier Bonds M.D. 12/17/2024 1:10 PM Dictation Location: [place] [address] Electronically authenticated by: [id number] Y Date: 12/17/2024 13:10 Dictated By: Xavier Bonds M.D. Signed By: 12/17/24 1313 DD/ 1310 TD/TT: Data Architect Manager: Reason For Referral Diagnosis 1 Weakness (R53.1) Referral Organization [facility] Medicine Referring Provider First Name Enio Referring Provider Last Name Korin Referring Provider Speciality Family Med icine Referred Provider [facility], Physical Therap y Referred Provider Specialty Physical The rapist Referral Priority Routine Medications Medication SIG (Take, Route, Frequency, Duration) Notes Start Date End Date Status rOPINIRole HCl 0.5 MG TAKE 1 TABLET BY M OUTH 1 TO 3 HOURS BEFORE BEDTIME; Duration: 90 ActiveCeleXA 10 MG1 tablet Orally Once a day; Duration: 30 day(s)12/28/2024 ActivePreserVision AREDS 2ActiveCarvedilol 12.5 MG1 tablet with food Orally Twice a day5ActiveRepatha SureClick 140 MG/MLas directed Subcutaneous 5ActiveEliquis 5 MGTAKE 1 TABLET BY MOUTH TWICE A DAY; Duration: 30 ActiveEzetimibe 10 MGTAKE 1 TABLET BY MOUTH DAILY; Duration: 90 daysActive Spiriva HandiHaler 18 MCG1 capsule by inhaling the contents of the capsule using the HandiHaler device Inhalation Once a cgbWHD645ActiveFerrous Sulfate 325 (65 Fe) MG1 tablet Orally BID5ActiveLiothyronine Sodium 5 MCGTAKE 2 TABLETS ON AN EMPTY STOMACH ORALLY ONCE A DAY 30 DAYS; Duration: 90 daysActive Meclizine HCl 25 MGTAKE 1-2 TABLETS BY MOUTH THREE TIMES A DAY NEEDED.; Duration: 15ActiveMemantine HCl ER 21 MGTAKE 1 CAPSULE BY MOUTH EVERY DAY; Duration: 90 daysActiveAdbry 300 MG/2MLas directed Poldmwwmklub72/18/2025Active Ondansetron 4 MG1 tablet on the tongue and allow to dissolve Orally qid 5ActiveFurosemide 20 MG1 tablet Orally Once a day; Duration: 30 day(s) 5ActiveAlbuterol Sulfate HFA 108 (90 Base) MCG/ACTUSE 2 INHALATIONS BY MOUTH 3 TIMES DAILY; Duration: 90ActivePlavix 75 MG1 tablet Orally Once a day 5ActiveAmiodarone HCl 200 MG1 tablet Orally Once a dayActive Immunizations Vaccine Route Administration Date Status Comme nts Flu, Fluad () (52448) 65 yrs+, single-dose syringe IM Intramuscular 12/25/2022 Administered Flu, Fluad (44512) 65 yrs and older, single-dose syringe (5601-2941)IM Zexztoxcirdag09/14/2024dministeredFlu, Fluad (14631) 65 yrs and older, single- dose syringe (8687-9845)IM Ahspfxqlksfft68/22/2025Administered Social History Tobacco Use: Social History Observation Description Date Details (start date - stop date) Former Smoker NA - 02/24/2010 Tobacco Use/Smoking Question Answer Notes Patient is a former smoker When did you stop smoking?02/24/2010lcohol Screen (Audit-C) Question Answer Notes Did you have a drink containing alcohol in the p ast year? No Cugyrc1HfmkfmikfnqgihDggylfpbPATCC-V (Standard) Question Answer Notes Did you have a drink containing alcohol in the p ast year? 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)ActiveconfirmedProblemDiabetic peripheral neuropathy associated with type 2 diabetes mellitus (0778786769712)Type 2 diabetes mellitus with diabetic neuropathy, unspecified (E11.40)Activeconfirmed ProblemDrug-induced myopathy (358970951)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)Active confirmedProblemBlepharochalasis (24339194)Blepharochalasis unspecified eye, 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)ActiveconfirmedProblemVentricular fibrillation (89723746)Ventricular fibrillation (I49.01)ActiveconfirmedProblemUncomplicated asthma (disorder) (482022650)Unspecified asthma, uncomplicated (J45.909)Active confirmedProblemDiverticula of intestine (39340306)Diverticulosis of intestine, part unspecified, without perforation or abscess without bleeding (K57.90)Active confirmedProblemConstipation (32797830)Constipation, unspecified (K59.00)Active confirmedProblemVesicular eczema (disorder) (703586756)Dyshidrosis [pompholyx] (L30.1)ActiveconfirmedProblemPain of right shoulder region (finding) (5469890669)Pain in right shoulder (M25.511)ActiveconfirmedProblemPolymyalgia rheumatica (13611555)Polymyalgia rheumatica (M35.3)ActiveconfirmedProblemMuscle weakness (74616490)Muscle weakness (generalized) (M62.81)ActiveconfirmedProblem Fibromyalgia (891154759)Fibromyalgia (M79.7)ActiveconfirmedProblemDisorder of bone (21562737)Other specified disorders of bone density and structure, unspecified site (M85.80)ActiveconfirmedProblemArteriovenous malformation (85615358)Arteriovenous malformation, site unspecified (Q27.30)Activeconfirmed ProblemSpasm (93662335)Cramp and spasm (R25.2)ActiveconfirmedProblemFrequency of micturition (667412503)Frequency of micturition (R35.0)ActiveconfirmedProblem Localized edema (3579476)Localized edema (R60.0)ActiveconfirmedProblemOther injury of muscle, fascia and tendon of lower back, initial encounter (S39.092A) ActiveconfirmedProblemPostmenopausal state (04549647)Asymptomatic menopausal state (Z78.0)ActiveconfirmedProblemAtrial fibrillation (31098507)Atrial fibrillation (I48.91)ActiveconfirmedProblemOsteoarthritis (341829095) Osteoarthritis (M19.90)ActiveconfirmedProblemAsthma (964447891)Asthma (J45.909) ActiveconfirmedProblemGastroesophageal reflux disease (764919800)GERD (gastroesophageal reflux disease) (K21.9)ActiveconfirmedProblemAtrial fibrillation (disorder) (34614199)Afib (I48.91)ActiveconfirmedProblemHypothyroid (01326136)Hypothyroid (E03.9)ActiveconfirmedProblemArteriovenous malformation (35729565)Arterio-venous malformation (Q27.30)ActiveconfirmedProblemOsteopenia (377942551)Osteopenia (M85.80)ActiveconfirmedProblemDyspnea (315807192)Dyspnea (R06.00)ActiveconfirmedProblemVertigo (109424942)Vertigo (R42)Activeconfirmed ProblemEczema (20380458)Eczema (L30.9)ActiveconfirmedProblemSinus tachycardia (56347130)Sinus tachycardia (R00.0)ActiveconfirmedProblemPain of right knee region (finding) (869353196679896)Knee pain, right (M25.561)Activeconfirmed ProblemEdema (480117589)Edema leg (R60.0)ActiveconfirmedProblemAcute bronchitis (81703549)Acute bronchitis (J20.9)ActiveconfirmedProblemVaricose veins (855999772)Varicose veins (I86.8)ActiveconfirmedProblemHypoglycemia (884901843) Hypoglycemia (E16.2)ActiveconfirmedProblemDiverticulitis (99525024) Diverticulitis (K57.92)ActiveconfirmedProblemPlantar fasciitis (157596230) Plantar fasciitis (M72.2)ActiveconfirmedProblemBenign neoplasm of cerebral meninges (45736710)Meningioma (D32.9)ActiveconfirmedProblemNear syncope (118624594)Near syncope (R55)ActiveconfirmedProblemGallstones (722181153) Gallstones (K80.20)ActiveconfirmedProblemRight upper quadrant pain (627536480) Right upper quadrant abdominal pain (R10.11)ActiveconfirmedProblem Gastroenteritis (51286733)Gastroenteritis (K52.9)ActiveconfirmedProblemEasy bruising (652059505)Easy bruisability (R23.8)ActiveconfirmedProblemOverweight (018239854)Over weight (E66.3)ActiveconfirmedProblemDyshidrotic eczema (937128012)Dyshidrotic eczema (L30.1)ActiveconfirmedProblemNevus (7070433942) Nevus (D22.9)ActiveconfirmedProblemCervical strain (703683806)Cervical strain (S16.1XXA)ActiveconfirmedProblemDiverticular disease (183945581)Diverticular disease (K57.90)ActiveconfirmedProblemAcute bronchiolitis (7565553)Acute bronchiolitis (J21.9)ActiveconfirmedProblemCramp in lower limb (813097402)Leg cramp (R25.2)ActiveconfirmedProblemPruritic disorders (365224245)Pruritic condition (L29.9)ActiveconfirmedProblemChronic obstructive pulmonary disease (86563513)Advanced COPD (J44.9)ActiveconfirmedProblemAcute cystitis (70785356) Acute cystitis (N30.00)ActiveconfirmedProblemAcute urinary tract infection (880517917)Acute UTI (N39.0)ActiveconfirmedProblemDiabetic peripheral neuropathy associated with type 2 diabetes mellitus (2665294571642)Neuropathy, diabetic (E11.40)ActiveconfirmedProblemDementia (44682319)Advanced dementia (F03.90) ActiveconfirmedProblemAt risk for falls (085982056)At risk for falls (Z91.81) ActiveconfirmedProblemBenign mammary dysplasia (88491096)Benign mammary dysplasia (N60.99)ActiveconfirmedProblemAcute heart failure (55095174)Acute heart failure (I50.9)ActiveconfirmedProblemEssential hypertension (20418815)BP (high blood pressure) (I10)ActiveconfirmedProblemPure hypercholesterolemia (285730420)Pure hypercholesterolemia, unspecified (E78.00)ActiveconfirmedProblem Type II diabetes mellitus without complication (312635041)Diabetes (E11.9)Active confirmedProblemDiabetes mellitus (20256076)Diabetes mellitus (E11.9)Active confirmedProblemChronic kidney disease stage 3A (disorder) (713890592)Chronic kidney disease, stage 3a (N18.31)ActiveconfirmedProblemLow back pain (372667319) Low back pain, unspecified (M54.50)Activeconfirmed Vital Signs Heart Rate 51 /min 12/15/2024 Njwefpixxss18.2 degrees Dvpfqxuebt89/31/4296Fpjbhtvi66 %12/15/2024lood pressure fpubfsinl07 mm Hg12/20/20245124Oolncv80 in12/20/2024lood pressure eewtclrh547 mm Hg12/20/20247915Dmhlus631.8 lbs1MI30.25 kg/m212/20/2024 Procedures Procedure Date Ordered Date Performed Result Body Sit e Echocardiogram 08/16/2024 N/AHolter Monitor - 3 days up to 14 days12/20/2024N/A*CARDIO Stress Test - Lexiscan Cpdqbiz4912/20/2024N/A Encounters Encounter Location Date Provider Diagnosis [facility] [address] [place] [place] [address] 12/29/2024 Enio lidia [facility] [place] [place] [place] [address] 09/09/2024Doug [facility] K80.20[facility] [place] [place] [place] [address]Doug [facility] [address] [place] [place] [place] [address]Doug [facility] [place] [address]/Doug [facility] [facility] [address] Enio HoyAcute non-recurrent sinusitis, unspecified location J01.90[facility] [place] [place] [address] Enio [facility] [place] [place] [address]/01/2025Doug [facility] [place] [facility] [place] [place] [address]/01/2025[facility] [place] [address]/Doug HoyHypothyroid E03.9 ; Acute heart failure I50.9 and SOB (shortness of breath) R06.02[facility] [address] [place] [address]/Doug [facility] [place] [address]/Doug [facility] [place] [address]/ [facility] [place] [address]/06/2024Doug HoyLeft arm pain M79.602[facility] [place] [address] [place] [address]/07/2024Doug HoyLeft wrist pain M25.532[facility] [place] [address]/08/2024Doug [facility] [place] [address]/Doug [facility] [place] [address]/05/2024Doug HoyAcute bronchiolitis J21.9 [facility] [place] [address] 06/11/2024Doug [facility] [place] [address]/[facility] [place] [address]/[facility] [place] [address]/Doug [facility] [place] [place] [address]/Doug [facility] [place] [address]/ Enio [facility] [place] [address]/04/2024Doug [facility] [place] [address]/oug [facility] [place] [address]/[facility] [place] [place] [place] [address]/09/2024Doug HoyAdvanced COPD J44.9 ; Acute heart failure I50.9 ; Ventricular fibrillation I49.01 ; Neuropathy, diabetic E11.40 ; Type 2 diabetes mellitus with diabetic neuropathy, unspecified E11.40 ; Atrial fibrillation I48.91 and Afib I48.91[place] [address] [place] [address]/Doug Hoy Essential (primary) hypertension U06EqcmizuPaula [address] [place] [address]/Doug HoyUTI (urinary tract infection) N39.0 ; Advanced dementia F03.90 ; Chronic kidney disease, stage 3a N18.31 ; Tinea corporis B35.4 and Dyspnea R06.00[place] [place] [place] [address]/09/2024Doug HoyRight upper quadrant abdominal pain R10.11 and Weakness R53.1BKatherine [place] [address] [place] [address]/Doug HoyType 2 diabetes mellitus with diabetic neuropathy, unspecified E11.40 ; Afib I48.91 ; Hypothyroid E03.9 ; Essential (primary) hypertension I10 ; Diabetes E11.9 ; Acute UTI N39.0 and Dysuria R30.0[facility] [place] [address]/Doug HoyAcute non-recurrent sinusitis, unspecified location J01.90 ; Nasal congestion R09.81 and Encounter for immunization [address] [facility] [address] [place] [address]/avid [facility] [place] [address]/Doug HoyDiverticulitis K57.92[facility] [address] [place] [address]/05/2024Doug HoyAcute bronchiolitis J21.9B[facility] [place] [place] [address]/Doug HoyBurning with urination R30.0 ; Pain in right shoulder M25.511 and Acute UTI N39.0[facility] [place] [address]/03/2024Doug HoyBChildren[facility] [place] [place] [address]/Doug HoyNear syncope R55 Assessments Encounter Date Diagnosis (ICD Code) Assessment Notes Treatment Notes Treatment Clinical Notes Section Notes 03/03/2024 Advanced COPD (ICD-10 - J44.9) 03/08/2024Essential (primary) hypertension (ICD-10 - I10)fatigue an hypotension -near syncope - stiopping iqibxfmhi91/31/2025Diverticulitis (ICD-10 - K57.92) 05/28/2024ute bronchiolitis (ICD-10 - J21.9)07/21/2024urning with urination (ICD-10 - R30.0)07/21/2024Pain in right shoulder (ICD-10 - M25.511)08/16/2024UTI (urinary tract infection) (ICD-10 - N39.0)chekcing urine culer and urnifro zdedghr15/23/2025Advanced dementia (ICD-10 - F03.90)memory part pretty stable no argument from tqvxeaq7808/31/2024Right upper quadrant abdominal pain (ICD-10 - R10.11)08/31/2024Weakness (ICD-10 - R53.1)10/20/2024Type 2 diabetes mellitus with diabetic neuropathy, unspecified (ICD-10 - E11.40)10/20/2024fib (ICD-10 - I48.91)rate bxvdlcapf44/27/2025Near syncope (ICD-10 - R55)03/31/2024Left arm pain (ICD-10 - M79.602)04/01/2024Left wrist pain (ICD-10 - M25.532)05/28/2024 Acute bronchiolitis (ICD-10 - J21.9)08/16/2024Hypothyroid (ICD-10 - E03.9) 5Acute heart failure (ICD-10 - I50.9)5Acute non-recurrent sinusitis, unspecified location (ICD-10 - J01.90)Rest and drink more liquids, especially water. You may use a humidifier or vaporizer to help keep the drainage moist. Ixhx-ucl-eiwqwon Nasal Saline may help the stuffy and runny nose. Use Ibuprofen and or Tylenol as needed for fever, chills, body aches or pain. Children 5 years old should not be given gagt-nuk-ngisftg cough and cold medications such as guaifenesin and dextromethorphan. If you're over age 5, you may try dayf-bmv-mpfvqal cold medications such as guaifenesin and dextromethorphan, [...] not improve within 3-5 days09/09/2024Gallstones (ICD-10 - K80.20)5Acute non-recurrent sinusitis, unspecified location (ICD-10 - J01.90)12/15/2024Nasal congestion (ICD-10 - R09.81)08/16/2024SOB (shortness of breath) (ICD-10 - R06.02)10/20/2024Hypothyroid (ICD-10 - E03.9)ecopuraged to take ,med08/16/2024hronic kidney disease, stage 3a (ICD-10 - N18.31)checing uirn protien and bun creat today5Acute UTI (ICD-10 - N39.0)03/03/2024 Acute heart failure (ICD-10 - I50.9)seein mxvyyodkeeu00/08/2025Ventricular fibrillation (ICD-10 - I49.01)08/16/2024Tinea corporis (ICD-10 - B35.4) plmmkmbfezwv71/27/2025Essential (primary) hypertension (ICD-10 - I10)up - adjusting meds1Encounter for immunization (ICD-10 - Z23)10/20/2024 Diabetes (ICD-10 - E11.9)exqppqe5903/03/2024Neuropathy, diabetic (ICD-10 - E11.40) 03/03/2024Type 2 diabetes mellitus with diabetic neuropathy, unspecified (ICD-10 - E11.40)08/16/2024Dyspnea (ICD-10 - R06.00)10/20/2024ute UTI (ICD-10 - N39.0)10/20/2024Dysuria (ICD-10 - R30.0)03/03/2024trial fibrillation (ICD-10 - I48.91)Dr Weaver03/03/2024fib (ICD-10 - I48.91) Plan Of Treatment Pending Test Test Name Order Date X ray : Wrist, left 04/01/2024 CMP (COMPLETE METABOLIC PANEL) 4 HEMOGLOBIN A1C (GLYCO) 11/19/2023 IRON, TOTAL 11/19/2023 LIPID PANEL (CHOL/TRIG/HDL/LDL) 11/19/19 24 CBC WITH DIFF 11/19/2023 VITAMIN D, 25 LEVEL (TOTAL) 11/19/2023 Echocardiogram 11/27/2023 Echocardiogram 08/16/2024 CARDIO Echocardiogram 11/19/2023 Urinalysis Microscopic 08/16/2024 RANDOM URINE PROTEIN 08/16/2024 UA (URINALYSIS), COMPLETE (62623) - IN O FFICE 08/30/2022 GLUCOSE - IN OFFICE FINGERSTICK w/MONITO R 12/04/2023 STOOL OCCULT BLOOD 11/19/2023 BLEEDING TIME 10/25/2022 CBC AUTO DIFF 10/16/2022 CULTURE SPUTUM 11/21/2023 CULTURE URINE 08/16/2024 FERRITIN 10/16/2022 GLYCOHEMOGLOBIN A1C 10/16/2022 IRON 10/16/2022 MAGNESIUM 12/30/2024 PROF 14(COMP METB) 12/30/2024 PROF 14(COMP METB) 10/25/2022 PROTIME 10/25/2022 PTT 10/25/2022 SPUTUM GRAM STAIN 11/21/2023 THYROID PROFILE WITH TSH 10/16/2022 TSH 12/30/2024 US ABD 08/31/2024 US VENOUS DOPPLER L ARM 03/31/2024 XR CHEST 2 V 08/16/2024 XR RIBS BIL_PA CH 4V OR GR 09/02/2022 THYROID PANEL (T4/TSH/FREE T3) 5 THYROID PANEL (T4/TSH/FREE T3) 4 THYROID PANEL (T4/TSH/FREE T3) 5 Holter Monitor - 3 days up to 14 days Holter Monitor - 3 days up to 14 days ECG 12 lead 12/30/2024 CBC no Diff (Hemogram) 12/30/2024 KORY Segmental Pressure Study of Lower Ex tremity 11/25/2023 *CARDIO Stress Test - Lexiscan Nuclear 1 *CARDIO Stress Test - Lexiscan Nuclear 1 NUC MED Hida with Ejection Fraction * HIDA w/EF 09/09/2024 Insurance Providers Payer Name Payer Address Payer Phone Subscriber Number Group Number Insured Name Patient Relationship to Insured Coverage Start Date Coverage End Date [employer] [address] [address] [place], [place] [phone] [id number] Zachary Maynard Self - patient is the insured 3 [employer] MEDICARE[address] [address] [place], [place] [phone] [id number], GrettaSelf - patient is the insured Medications Administered Medication Instructions Date of Administration Dosage Notes Dexamethasone, 4mg/mL mg8 mgDexamethasone, 4mg/mL mg8 mgDexamethasone, 4mg/mL mgDexamethasone, 4mg/mL mgKenalog-4004/0 mg80 mg Kenalog-40020 ph271Ekhvbvw-0727/23/202380 vx64Yhuvjohzl Tromethamine tv75Ecogltmuvqmbr 40 mg/ml0 mg Medical (General) History Medical [...] to kidney and bowel Cardiac cath 12/17 Right Long Finger and ring finger 04/2023 Bilateral Foot Surgery Breast Cyst removedHysterectomyHospitalization History Reason Date(Month/Year) [facility] 2024 Aorta Patch 01/2024 A-fib 12/17 sepsis 2019
--- NOTE | 2024-12-30 09:05 | CM.NOTE ---
Rounds made with Dr. Barron, discussed with pt reason for admission and plan of care. Cardiology will consult on pt today for further recommendations. No discharge today. Pt is OBS status.
[2024-12-30] MEDS: DOXYCYCLINE MONOHYDRATE 100 MG CAPSULE PO ×2 (09:17→21:56)
[2024-12-30] MEDS: LIOTHYRONINE SODIUM 5 MCG TABLET 10 MCG PO (09:17)
[2024-12-30] MEDS: CARVEDILOL 6.25 MG TABLET PO ×2 (09:17→21:56)
[2024-12-30] MEDS: CLOPIDOGREL BISULFATE 75 MG TABLET PO (09:17)
[2024-12-30] MEDS: APIXABAN 5 MG TABLET PO ×2 (09:17→21:58)
[2024-12-30] MEDS: AMIODARONE HCL 200 MG TABLET PO (09:17)
[2024-12-30] MEDS: MEMANTINE HCL 7 MG CAP XR 21 MG PO (09:19)
[2024-12-30] MEDS: MECLIZINE HCL 12.5 MG TABLET 25 MG PO (09:21)
--- NOTE | 2024-12-30 10:16 | SWNOTE1 ---
SW met with pt to discuss dc needs. Pt was laying in bed watching T.V. Pt lives at home with her . She does not wear home oxygen. She voiced she is supposed to be tested for it at discharge. SW advised that we will keep monitoring her oxygen levels and then complete walk test if needed to see if she qualifies. Pt does use a rollator at home at all times. No services coming in at this time. SW asked if she went out with her to the store, etc. She voiced lately she has not been able to. Pt stated that 7 years ago she was septic adn ever since then she has not felt right and has had dizziness. SW asked if she went to any therapy? She voiced she had 52 visits at the outpt rehab services, and then was able to get 12 more visits. She voiced they tried everything, but was not able to fix the dizziness. She thinks the outpt PT ended about a month ago. Pt does have good family support. She has 6 living children, 5 of them are in this area. She has several grand children and 9 great grandchildren. Pt voiced she does not need anything at this time, may need oxygen at discharge. SW to follow as needed.
--- NOTE | 2024-12-30 11:52 | PM.HP ---
HPI H&P: HPI History of Present Illness Chief complaint: syncope, SOB ON EXERTION, HYPOXEMIA Narrative: Mrs. Johnson is an 79-year-old female with the history of atrial fibrillation, hypertension, peripheral vascular disease, previous abdominal aortic aneurysm. Patient was getting an outpatient pulmonary function test. She felt dizzy and passed out for a few seconds. She was taken to the emergency room for an evaluation. Patient regained her consciousness. No chest pain. No focal weakness or numbness. No slurred speech before or after the episode. No fever or chills. CAT scan of the head is negative for acute intracranial process. Patient reported that she has been short of breath for months and years. She smoked for 30 years in the past. She quit 20 years ago. She is not on oxygen at home. She does not see a lung doctor. In the emergency room the patient had hypertensive urgency requiring administration of medication. Patient also was found to have a positive D-dimer. CAT scan is negative for PE. CAT scan is positive for emphysema and no infiltration or malignancy. Patient continues to report having subjective shortness of breath. She has had it for a while. No abdominal pain, nausea or vomiting. Patient is on Eliquis. Opioid HPI Opioid Management Most Recent Pain and Opioid Data: Last Pain Scale 8 Today, 04:43 Last Pain Assessment Today, 12:00 Last MAR Pain Assessment Today, 05:45 Last ORT Total Score 0 12/29/24, 18:28 Last ORT Risk Category Low Risk 12/29/24, 18:28 [facility] Medical History (Updated 12/30/24 @ 11:55 by Nena Barron MD) Vertigo ?R42 - Dizziness and giddiness (ICD-10) Severe protein-calorie malnutrition ?E43 - Unspecified severe protein-calorie malnutrition (ICD-10) Systolic heart failure ?I50.20 - Unspecified systolic (congestive) heart failure (ICD-10) Hypertension ?I10 - Essential (primary) hypertension (ICD-10) Non-sustained ventricular tachycardia ?I47.29 - Other ventricular tachycardia (ICD-10) Chest pain ?R07.9 - Chest pain, unspecified (ICD-10) Essential (primary) hypertension ?I10 - Essential (primary) hypertension (ICD-10) ZAVALA (dyspnea on exertion) ?R06.09 - Other forms of dyspnea (ICD-10) Elevated troponin level not due myocardial infarction ?R79.89 - Other specified abnormal findings of blood chemistry (ICD-10) Atrial fibrillation ?I48.91 - Unspecified atrial fibrillation (ICD-10) Dehydration ?E86.0 - Dehydration (ICD-10) Upper respiratory infection ?J06.9 - Acute upper respiratory infection, unspecified (ICD-10) COPD (chronic obstructive pulmonary disease) ?J44.9 - Chronic obstructive pulmonary disease, unspecified (ICD-10) History of uterine cancer ?Z85.42 - Personal history of malignant neoplasm of other parts of uterus (ICD-10) Edema ?R60.9 - Edema, unspecified (ICD-10) Diabetes ?E11.9 - Type 2 diabetes mellitus without complications (ICD-10) HTN (hypertension) ?I10 - Essential (primary) hypertension (ICD-10) Surgical History (Updated 02/01/24 @ 21:12 by Argentina Keenan) S/P abdominal aortic aneurysm repair ?Z98.890 - Other specified postprocedural states (ICD-10) ?Z86.79 - Personal history of other diseases of the circulatory system (ICD-10) History of abdominal aortic aneurysm repair ?Z98.890 - Other specified postprocedural states (ICD-10) H/O: hysterectomy ?Z90.710 - Acquired absence of both cervix and uterus (ICD-10) Family History Father Family history of cancer Family history of COPD (chronic obstructive pulmonary disease) Mother Family history of diabetes mellitus Family history of hypertension Family history of myocardial infarction Family history of CHF (congestive heart failure) Social History Within the past year, how often did you have a drink containing alcohol: never Score interpretation: A score less than 3 is consistent with normal alcohol consumption. Smoking status: Former smoker Non-prescribed substance use: denies use Highest level of school completed/degree received: 10th grade Little interest or pleasure in doing things: several days Feeling down, depressed, or hopeless: several days Gender Identity: female Meds Home Medications and Allergies Home Medications ?Medication ?Instructions ?Recorded ?Confirmed ?Type albuterol sulfate 90 mcg/actuation 2 puff inhalation Q4H PRN 11/23/23 12/29/24 History aerosol inhaler shortness of breath or wheezing apixaban 5 mg tablet (Eliquis) 5 mg PO BID #60 tabs 11/28/23 12/29/24 Rx amiodarone 200 mg tablet 200 mg PO DAILY 12/02/23 12/29/24 History ezetimibe 10 mg tablet 10 mg PO .QHS 12/02/23 12/29/24 History ropinirole 0.5 mg tablet 0.5 mg PO .QHS 12/02/23 12/29/24 History tiotropium bromide 2.5 2 puff inhalation DAILY PRN 12/02/23 12/29/24 History mcg/actuation mist for inhalation shortness of breath (Spiriva Respimat) nitroglycerin 0.4 mg sublingual 0.4 mg sublingual Q5M PRN Chest 12/03/23 12/29/24 Rx tablet Pain #20 tabs triamcinolone acetonide 0.1 % 1 applic topical BID PRN itching 02/01/24 12/29/24 History topical cream carvedilol 12.5 mg tablet 12.5 mg PO Q12H 12/17/24 12/29/24 History clopidogrel 75 mg tablet 75 mg PO DAILY 12/17/24 12/29/24 History evolocumab 140 mg/mL subcutaneous 140 mg subcut Q14D 12/17/24 12/29/24 History pen injector (Fawad Abraham) ferrous sulfate 325 mg (65 mg 325 mg PO BID 12/17/24 12/29/24 History iron) tablet (Feosol) liothyronine 5 mcg tablet 10 mcg PO DAILY 12/17/24 12/29/24 History meclizine 25 mg tablet 25 mg PO BID PRN dizziness 12/17/24 12/29/24 History memantine 21 mg capsule 21 mg PO Q24H 12/17/24 12/29/24 History sprinkle,extended release 24hr tralokinumab-ldrm 300 mg/2 mL 300 mg subcut Q28D 12/17/24 12/29/24 History subcutaneous auto-injector (Adbry) furosemide 20 mg tablet 20 mg PO DAILY 12/29/24 12/29/24 History Allergies Allergy/AdvReac Type Severity Reaction Status Date / Time meperidine (From Demerol) Allergy Severe Anaphylaxis Verified 12/17/24 10:51 aspirin Allergy excessive Verified 12/17/24 11:32 bleeding atorvastatin Allergy Unknown Verified 12/17/24 11:32 cefdinir Allergy Unknown Verified 12/17/24 11:32 ciprofloxacin (From Cipro) Allergy Unknown Verified 12/17/24 11:32 moxifloxacin (From Avelox) Allergy Unknown Verified 12/17/24 11:32 nalbuphine (From Nubain) Allergy Unknown Verified 12/17/24 11:32 promethazine (From Phenergan) Allergy Unknown Verified 12/17/24 11:32 Sulfa (Sulfonamide Allergy Unknown Verified 12/17/24 11:32 Antibiotics) Exam Narrative Exam Narrative: Patient is sitting in the chair. Mildly dyspneic. She is on oxygen. Saturation 92% on 2 L. Pale skin and buccal mucosa. Neck is supple, no JVD. Chest is clear. No crackles. No wheezing. Heart is regular, systolic murmur. Abdomen is soft, nontender. Lower extremities no edema. No calf tenderness per se. Constitutional Vital Signs, click to edit/add: Last Vital Signs Temp 98.6 F 12/30/24 07:28 Pulse 65 12/30/24 09:53 Resp 24 H 12/30/24 09:08 BP 143/60 H 12/30/24 07:28 Pulse Ox 90 L 12/30/24 09:08 O2 Del Method Room Air 12/30/24 09:08 O2 Flow Rate 1 12/30/24 05:15 Results Labs Labs: Short CBC 12/29/24 12/30/24 Range/Units 12:11 05:42 WBC 7.4 5.8 (4.0-11.0) 10^3/uL Hgb 10.8 L 9.9 L (12.0-16.0) g/dL Hct 34.7 L 32.0 L (36.0-48.0) % Plt Count 191 185 (150-450) 10^3/uL BMP 12/29/24 12/30/24 12:11 05:42 Sodium 146 H 144 Potassium 3.6 3.5 Chloride 108 H 109 H Carbon Dioxide 30.7 27.9 BUN 18.0 17.0 Creatinine 1.23 H 1.08 H Glucose 100 93 Calcium 8.6 8.6 Liver Function 11/05/25 11/06/25 Range/Units 12:11 05:42 Total Bilirubin 0.4 0.5 (0.2-1.0) mg/dL AST 13 L 13 L (15-37) U/L ALT 22 15 (14-59) U/L Alkaline Phosphatase 113 105 (46-116) U/L Albumin 2.8 L 2.5 L (3.4-5.0) g/dL Urine 12/29/24 Range/Units 15:05 Urine Color Lt. yellow (YELLOW) Urine Clarity Clear (CLEAR) Urine pH 6.0 (5.0-9.0) Ur Specific [place] 1.010 (1.005-1.025) Urine Protein Negative (NEG/TRACE) mg/dL Urine Glucose (UA) Negative (NEGATIVE) mg/dL Assessment and Plan Assessment and Plan (1) Hypertensive urgency: (2) Syncope: (3) Bradycardia: Plan Syncopal episode while patient was getting an outpatient PFTs No neurological symptoms otherwise. CT head is negative for acute intracranial process. CT is positive for microvascular disease CT of the chest negative for PE. Her troponin is negative. EKG does not show ST elevation or depression. EKG showed bradycardia. Patient had a Holter monitor in October 2023 which showed episodes of bradycardia with a heart rate down to the 50s and intermittent episode of SVT. Potentially patient could have had cardiac dysrhythmia causing her to pass out at PFTs. Patient is on amiodarone and Coreg. Yesterday home medication showed that she was also taking metoprolol. Not sure if there is misunderstanding between patient and her providers I requested cardiac consultation to evaluate her syncopal episode and review of her bradycardia and previous documented SVT on Holter monitor that was completed in October 2023. Echocardiogram completed in August 2024 for which she does not show any evidence of cardiomyopathy or significant valvular disease Shortness of breath for months and years according to patient and her . Patient had smoked for 30 years but quit [address] of the chest negative for PE or any other parenchymal disease other than emphysematous changes. Patient did not complete her PFTs in the outpatient setting unfortunately therefore I cannot determine the significance of her emphysema. Elevated BNP but no overwhelming evidence of fluid overload. No lower extremities edema, no JVD and CT imaging does not show any interstitial edema. Recent echo does not show cardiomyopathy or significant valvular disease. Cardiology to evaluate and addressed. Patient may qualify for oxygen. Patient will be arranged to follow-up with pulmonary as well. Positive D-dimer. CTA of the chest negative for PE. No clinical evidence to suggest lower extremities DVT. No swelling or tenderness. Furthermore, patient is on ELiquis. Consideration to order ultrasound of the legs. Peripheral vascular disease. History of renal artery stenting as per . History of abdominal aortic aneurysm. Patient is on Plavix as well as Eliquis. Anemia, no evidence of acute blood loss. Patient will likely require to have anemia workup to be done in the outpatient setting to be handled by PCP in collaboration with other needed outpatient providers. This may include but not limited to EGD, colonoscopy, referral to see hematology and other needed age-appropriate cancer screening. History of eczema on immunotherapy Hold for now. Chronic, subacute medical conditions not listed above, abnormal labs and imaging, incidental findings seen on labs and or imaging. These would need to be addressed. Could be addressed later on or in the outpatient setting by PCP collaboration with other needed outpatient providers when time and condition are appropriate.
--- NOTE | 2024-12-30 14:25 | CM.NOTE ---
Medicare Outpatient Observation Notice discussed with pt, pt verbalizes understanding. Pt signs paper, original given to pt and copy placed on pt's chart.
[2024-12-30] MEDS: TORSEMIDE 20 MG TABLET PO (15:13)
[2024-12-30] MEDS: POTASSIUM CHLORIDE 10 MEQ ER TABLET 30 MEQ PO (15:13)
--- NOTE | 2024-12-30 16:51 | PC.NURSE ---
Patient used her own Theresa to check her sugar
--- NOTE | 2024-12-30 17:15 | PM.CACN ---
History of Present Illness History of Present Illness Consult date: 12/30/24 Requesting physician: Nena Barron Chief complaint: syncope, SOB ON EXERTION, HYPOXEMIA Narrative: Shayy Johnson is an 79 yo female know to our cardiology clinic with significant medical history of HFpEF, nonobstructive CAD, PAD, NSVT, hypertension, and hyperlipidemia, who presented to the ED after experiening a brief syncope during an outpatient PFT and was taken to the ED for evaluation. She regained consciousness promptly without chest pain or speech changes. CT head was negative for acute findings. In the ED, she was noted to have hypertensive urgency. CTA chest was negative for PE but showed emphysema without infiltrate or malignancy. Cardiology was consulted for bradycardia. She reports chronic dyspnea over several months-years. Former smoker with a 30-year history, quit 20 years ago. Not on home oxygen and has no current pulmonology follow-up. Today, she is seen and evaluated at the bedside. She appears in no acute distress. Denies chest pain, dizziness or lightheadedness. Review of Systems ROS Status of ROS 10 or more systems reviewed and unremarkable except as noted in history and below [facility] Medical History (Updated 12/30/24 @ 11:55 by Nena Barron MD) Vertigo ?R42 - Dizziness and giddiness (ICD-10) Severe protein-calorie malnutrition ?E43 - Unspecified severe protein-calorie malnutrition (ICD-10) Systolic heart failure ?I50.20 - Unspecified systolic (congestive) heart failure (ICD-10) Hypertension ?I10 - Essential (primary) hypertension (ICD-10) Non-sustained ventricular tachycardia ?I47.29 - Other ventricular tachycardia (ICD-10) Chest pain ?R07.9 - Chest pain, unspecified (ICD-10) Essential (primary) hypertension ?I10 - Essential (primary) hypertension (ICD-10) ZAVALA (dyspnea on exertion) ?R06.09 - Other forms of dyspnea (ICD-10) Elevated troponin level not due myocardial infarction ?R79.89 - Other specified abnormal findings of blood chemistry (ICD-10) Atrial fibrillation ?I48.91 - Unspecified atrial fibrillation (ICD-10) Dehydration ?E86.0 - Dehydration (ICD-10) Upper respiratory infection ?J06.9 - Acute upper respiratory infection, unspecified (ICD-10) COPD (chronic obstructive pulmonary disease) ?J44.9 - Chronic obstructive pulmonary disease, unspecified (ICD-10) History of uterine cancer ?Z85.42 - Personal history of malignant neoplasm of other parts of uterus (ICD-10) Edema ?R60.9 - Edema, unspecified (ICD-10) Diabetes ?E11.9 - Type 2 diabetes mellitus without complications (ICD-10) HTN (hypertension) ?I10 - Essential (primary) hypertension (ICD-10) Surgical History (Updated 02/01/24 @ 21:12 by Argentina Keenan) S/P abdominal aortic aneurysm repair ?Z98.890 - Other specified postprocedural states (ICD-10) ?Z86.79 - Personal history of other diseases of the circulatory system (ICD-10) History of abdominal aortic aneurysm repair ?Z98.890 - Other specified postprocedural states (ICD-10) H/O: hysterectomy ?Z90.710 - Acquired absence of both cervix and uterus (ICD-10) Family History Father Family history of cancer Family history of COPD (chronic obstructive pulmonary disease) Mother Family history of diabetes mellitus Family history of hypertension Family history of myocardial infarction Family history of CHF (congestive heart failure) Social History Within the past year, how often did you have a drink containing alcohol: never Score interpretation: A score less than 3 is consistent with normal alcohol consumption. Smoking status: Former smoker Non-prescribed substance use: denies use Highest level of school completed/degree received: 10th grade Little interest or pleasure in doing things: several days Feeling down, depressed, or hopeless: several days Gender Identity: female Meds Home Medications and Allergies Home Medications ?Medication ?Instructions ?Recorded ?Confirmed ?Type albuterol sulfate 90 mcg/actuation 2 puff inhalation Q4H PRN 11/23/23 12/29/24 History aerosol inhaler shortness of breath or wheezing apixaban 5 mg tablet (Eliquis) 5 mg PO BID #60 tabs 11/28/23 12/29/24 Rx amiodarone 200 mg tablet 200 mg PO DAILY 12/02/23 12/29/24 History ezetimibe 10 mg tablet 10 mg PO .QHS 12/02/23 12/29/24 History ropinirole 0.5 mg tablet 0.5 mg PO .QHS 12/02/23 12/29/24 History tiotropium bromide 2.5 2 puff inhalation DAILY PRN 12/02/23 12/29/24 History mcg/actuation mist for inhalation shortness of breath (Spiriva Respimat) nitroglycerin 0.4 mg sublingual 0.4 mg sublingual Q5M PRN Chest 12/03/23 12/29/24 Rx tablet Pain #20 tabs triamcinolone acetonide 0.1 % 1 applic topical BID PRN itching 02/01/24 12/29/24 History topical cream carvedilol 12.5 mg tablet 12.5 mg PO Q12H 12/17/24 12/29/24 History clopidogrel 75 mg tablet 75 mg PO DAILY 12/17/24 12/29/24 History evolocumab 140 mg/mL subcutaneous 140 mg subcut Q14D 12/17/24 12/29/24 History pen injector (Fawad Abraham) ferrous sulfate 325 mg (65 mg 325 mg PO BID 12/17/24 12/29/24 History iron) tablet (Feosol) liothyronine 5 mcg tablet 10 mcg PO DAILY 12/17/24 12/29/24 History meclizine 25 mg tablet 25 mg PO BID PRN dizziness 12/17/24 12/29/24 History memantine 21 mg capsule 21 mg PO Q24H 12/17/24 12/29/24 History sprinkle,extended release 24hr tralokinumab-ldrm 300 mg/2 mL 300 mg subcut Q28D 12/17/24 12/29/24 History subcutaneous auto-injector (Adbry) furosemide 20 mg tablet 20 mg PO DAILY 12/29/24 12/29/24 History Allergies Allergy/AdvReac Type Severity Reaction Status Date / Time meperidine (From Demerol) Allergy Severe Anaphylaxis Verified 12/17/24 10:51 aspirin Allergy excessive Verified 12/17/24 11:32 bleeding atorvastatin Allergy Unknown Verified 12/17/24 11:32 cefdinir Allergy Unknown Verified 12/17/24 11:32 ciprofloxacin (From Cipro) Allergy Unknown Verified 12/17/24 11:32 moxifloxacin (From Avelox) Allergy Unknown Verified 12/17/24 11:32 nalbuphine (From Nubain) Allergy Unknown Verified 12/17/24 11:32 promethazine (From Phenergan) Allergy Unknown Verified 12/17/24 11:32 Sulfa (Sulfonamide Allergy Unknown Verified 12/17/24 11:32 Antibiotics) Exam Constitutional Vital Signs, click to edit/add: Last Vital Signs Temp 98.3 F 12/30/24 11:56 Pulse 60 12/30/24 16:00 Resp 18 12/30/24 11:56 BP 153/64 H 12/30/24 11:56 Pulse Ox 97 12/30/24 11:56 O2 Del Method Room Air 12/30/24 11:56 O2 Flow Rate 1 12/30/24 05:15 Common normals: no apparent distress Cardio Common normals: regular rate, regular rhythm, S1 normal heart sound and S2 normal heart sound Peripheral pulses: pulses 2+ throughout Results Labs and Meds Lab results: Cardiac Enzymes 12/30/24 Range/Units 05:42 AST 13 L (15-37) U/L CBC 12/30/24 Range/Units 05:42 WBC 5.8 (4.0-11.0) 10^3/uL RBC 3.41 L (4.20-5.40) 10^6/uL Hgb 9.9 L (12.0-16.0) g/dL Hct 32.0 L (36.0-48.0) % Plt Count 185 (150-450) 10^3/uL Comprehensive Metabolic Panel 12/30/24 Range/Units 05:42 Sodium 144 (136-145) mmol/L Potassium 3.5 (3.5-5.1) mmol/L Chloride 109 H (98-107) mmol/L Carbon Dioxide 27.9 (21.0-32.0) mmol/L BUN 17.0 (7.0-18.0) mg/dL Creatinine 1.08 H (0.55-1.02) mg/dL Glucose 93 (74-106) mg/dL Calcium 8.6 (8.5-10.1) mg/dL AST 13 L (15-37) U/L ALT 15 (14-59) U/L Alkaline Phosphatase 105 (46-116) U/L Total Protein 5.2 L (6.4-8.2) g/dL Albumin 2.5 L (3.4-5.0) g/dL Intake and Output 12/30/24 12/30/24 12/30/24 07:59 15:59 23:59 Intake Total 800 / 800 Output Total 200 / 200 Balance 600 / 600 Intake: Oral 800 / 800 Output: Urine 200 / 200 Other: # Unmeasured Voids 1 # Bowel Movements 1 Assessment and Plan Assessment and Plan (1) Hypertensive urgency: (2) Syncope: (3) Bradycardia: Plan #Hypertension Initially treated for HTN urgency in ED Blood pressure today 130/85 Hemodynamically stable ? Continue carvedilol 12.5 mg twice daily #Syncope Experienced a syncopal episode during outpatient PFT Currently asymptomatic - denies lightheadedness, dizziness, chest pain, or palpitations CT chest negative for pulmonary embolism - CT head negative for acute intracranial process Troponin negative - EKG without ischemic changes but notable for bradycardia - Likely multifactorial - possible transient bradyarrhythmia from rate-suppressive therapy (amiodarone, carvedilol) versus vasovagal or situational syncope during forced expiratory maneuvers - No evidence of ischemia or structural cause ? Recommend 30-day ambulatory event monitor at discharge for rhythm correlation and to rule out recurrent pauses or conduction abnormalities #Bradycardia Asymptomatic and hemodynamically stable Currently on amiodarone and carvedilol 12.5 mg twice daily, both of which may contribute to rate suppression ? Continue current medications with close monitoring of heart rate and symptoms ? Given syncopal episode, recommend 30-day ambulatory event monitor at discharge for rhythm evaluation and correlation with symptoms #HFpEF NYHA II Appears compensated ?Continue furosemide 20 mg daily #NSVT #AAA #DM 2 Plan Overview: -30d event at discharge -[facility]
[2024-12-30] MEDS: ROPINIROLE HCL 0.25 MG TABLET 0.5 MG PO (21:57)
[2024-12-30] MEDS: AMLODIPINE BESYLATE 5 MG TABLET 2.5 MG PO (21:57)
[2024-12-31] VITALS (22 sets, daily range): BP systolic 131–185; BP diastolic 67–82; PULSE 52–70; TEMP 36.3–36.8; O2SAT 93–100
[2024-12-31 06:25] LABS: Hematocrit 32.5 % (36.0-48.0); Hemoglobin 10.2 g/dL (12.0-16.0); Mean Corpuscular HGB Conc 31.4 g/dL (29.9-35.2); Mean Corpuscular Hemoglobin 29.9 pg (26.7-34.0); Mean Corpuscular Volume 95.3 fL (81.0-99.0); Platelet Count 208 10^3/uL (150-450); Red Blood Count 3.41 10^6/uL (4.20-5.40); White Blood Count 5.5 10^3/uL (4.0-11.0)
[2024-12-31 06:39] LABS: Anion Gap 11.2; Blood Urea Nitrogen 19.0 mg/dL (7.0-18.0); Calcium 8.6 mg/dL (8.5-10.1); Carbon Dioxide 29.3 mmol/L (21.0-32.0); Chloride 108 mmol/L (98-107); Estimated GFR (African America 52 (>=60 mL/min/1.73m^2); Estimated GFR (Non-African Ame 43 (>=60 mL/min/1.73m^2); Glucose 92 mg/dL (74-106); Potassium 3.5 mmol/L (3.5-5.1); Sodium 145 mmol/L (136-145)
[2024-12-31] MEDS: HYDRALAZINE HCL 20 MG/ML VIAL 10 MG IVP (07:40)
--- NOTE | 2024-12-31 08:30 | CM.NOTE ---
Rounds made with Dr. Barron, discussed with pt possible discharge to home. Pt will need walk test. Pt will f/u with pulmonary, cardiology, and PCP.
--- NOTE | 2024-12-31 09:14 | P.PN_ITS ---
Progress Note: Subjective Subjective Interval history: Uneventful night. Patient is doing fairly well. Heart rate is hovering between 55 and 65. Saturation 93% on 1 to 2 L per Blood pressure is climbing up. No chest pain. No abdominal pain. Exam Narrative Exam Narrative: Patient is sitting in the chair. Mildly dyspneic. She is on oxygen. Saturation 92% on 1 L. Pale skin and buccal mucosa. Neck is supple, no JVD. Chest is clear. No crackles. No wheezing. Heart is regular, systolic murmur. Abdomen is soft, nontender. Lower extremities no edema. No calf tenderness per se. Constitutional Vital Signs, click to edit/add: Last Vital Signs Temp 98.1 F 12/31/24 07:37 Pulse 52 L 12/31/24 08:00 Resp 18 12/31/24 07:45 BP 185/74 H 12/31/24 07:37 Pulse Ox 93 L 12/31/24 07:37 O2 Del Method Nasal Cannula 12/31/24 07:37 O2 Flow Rate 1 12/31/24 07:37 Progress Note: Objective Labs Labs: Short CBC 12/31/24 Range/Units 05:20 WBC 5.5 (4.0-11.0) 10^3/uL Hgb 10.2 L (12.0-16.0) g/dL Hct 32.5 L (36.0-48.0) % Plt Count 208 (150-450) 10^3/uL BMP 12/31/24 05:20 Sodium 145 Potassium 3.5 Chloride 108 H Carbon Dioxide 29.3 BUN 19.0 H Creatinine 1.21 H Glucose 92 Calcium 8.6 Progress Note: A&P Assessment and Plan (1) Hypertensive urgency: (2) Syncope: (3) Bradycardia: Plan Syncopal episode while patient was getting an outpatient PFTs No neurological symptoms otherwise. CT head is negative for acute intracranial process. CT is positive for microvascular disease CT of the chest negative for PE. Her troponin is negative. EKG does not show ST elevation or depression. EKG showed bradycardia. Patient had a Holter monitor in October 2023 which showed episodes of bradycardia with a heart rate down to the 50s and intermittent episode of SVT. Potentially patient could have had cardiac dysrhythmia causing her to pass out at PFTs. Patient is on amiodarone and Coreg. Patient is no longer on metoprolol. I requested cardiac consultation to evaluate her syncopal episode and review of her bradycardia and previous documented SVT on Holter monitor that was completed in October 2023. Echocardiogram completed in August 2024 for which she does not show any evidence of cardiomyopathy or significant valvular disease Transport Manager recommended Holter monitor. Continuation of the lower dose of Coreg and follow-up in the outpatient setting. Hypertensive urgency, uncontrolled hypertension. Her Coreg dose was cut down to 6.25 twice a day due to her bradycardia. I started amlodipine 2.5 mg last evening. Blood pressure continues to be e levated. Increased to 5 mg daily. Continue diuretics. Shortness of breath for months and years according to patient and her . Patient had smoked for 30 years but quit [address] of the chest negative for PE or any other parenchymal disease other than emphysematous changes. Patient did not complete her PFTs in the outpatient setting unfortunately therefore I cannot determine the significance of her emphysema. Elevated BNP but no overwhelming evidence of fluid overload. No lower extremities edema, no JVD and CT imaging does not show any interstitial edema. Recent echo does not show cardiomyopathy or significant valvular disease. Cardiology recommended continuation of daily diuresis at home. Patient may qualify for oxygen. Home O2 evaluation before discharge Patient will be arranged to follow-up with pulmonary as well. Positive D-dimer. CTA of the chest negative for PE. No clinical evidence to suggest lower extremities DVT. No swelling or tenderness. Furthermore, patient is on ELiquis. Venous duplex of the legs came back negative. Peripheral vascular disease. History of renal artery stenting as per . History of abdominal aortic aneurysm. Patient is on Plavix as well as Eliquis. Anemia, no evidence of acute blood loss. Patient will likely require to have anemia workup to be done in the outpatient setting to be handled by PCP in collaboration with other needed outpatient providers. This may include but not limited to EGD, colonoscopy, referral to see hematology and other needed age-appropriate cancer screening. History of eczema on immunotherapy Hold for now. Chronic, subacute medical conditions not listed above, abnormal labs and imaging, incidental findings seen on labs and or imaging. These would need to be addressed. Could be addressed later on or in the outpatient setting by PCP collaboration with other needed outpatient providers when time and condition are appropriate.
[2024-12-31] MEDS: TORSEMIDE 20 MG TABLET PO (09:16)
[2024-12-31] MEDS: LIOTHYRONINE SODIUM 5 MCG TABLET 10 MCG PO (09:17)
[2024-12-31] MEDS: AMIODARONE HCL 200 MG TABLET PO (09:18)
[2024-12-31] MEDS: CARVEDILOL 6.25 MG TABLET PO ×2 (09:18→21:40)
[2024-12-31] MEDS: CLOPIDOGREL BISULFATE 75 MG TABLET PO (09:18)
[2024-12-31] MEDS: DOXYCYCLINE MONOHYDRATE 100 MG CAPSULE PO ×2 (09:18→21:40)
[2024-12-31] MEDS: POTASSIUM CHLORIDE 10 MEQ ER TABLET 20 MEQ PO ×2 (09:18→14:51)
[2024-12-31] MEDS: APIXABAN 5 MG TABLET PO ×2 (09:18→21:40)
[2024-12-31] MEDS: MEMANTINE HCL 7 MG CAP XR 21 MG PO (09:21)
[2024-12-31] MEDS: AMLODIPINE BESYLATE 5 MG TABLET PO (09:22)
--- NOTE | 2024-12-31 09:40 | CM.NOTE ---
CM spoke with pt and regarding HH nurse at discharge for checking vitals and helping with medications. Pt and are in agreement and do not have a preference for company. Updated SW to set up for discharge HH services. CM also spoke with pharmacy to go over medications with pt prior to discharge home. Pt has all her pills in pill dispenser and will need to know if any have to be removed or adjusted. Cortney in pharmacy will make sure medications are addressed prior to discharge to home.
--- NOTE | 2024-12-31 09:47 | SWNOTE1 ---
SW spoke to Case Management and she spoke with pt and about a home health nurse coming in to assist with medication education for a short time. Pt and are in agreement. Pt and do not have a preference at this time.
--- NOTE | 2024-12-31 10:16 | SWNOTE1 ---
Referral sent to [facility]. Referral included face sheet, ED note, H&P, provider notes, case management report, and med list.
--- NOTE | 2024-12-31 13:32 | SWNOTE1 ---
IGOR received a call back from Elizabeth at [facility] and they can accept and wanted to know when discharge is. IGOR advised that is likely for discharge tomorrow and IGOR will have the nurses send dc orders if she does discharge.
[2024-12-31] MEDS: FUROSEMIDE 20 MG/2 ML VIAL IVP (14:51)
[2024-12-31] MEDS: ROPINIROLE HCL 0.25 MG TABLET 0.5 MG PO (21:40)
[2025-01-01] VITALS (11 sets, daily range): BP systolic 124–170; BP diastolic 66–73; PULSE 56–67; TEMP 36.7–37; O2SAT 93–97
[2025-01-01] MEDS: HYDRALAZINE HCL 20 MG/ML VIAL 10 MG IVP (04:35)
[2025-01-01 06:54] LABS: Anion Gap 11.2; Blood Urea Nitrogen 22.0 mg/dL (7.0-18.0); Calcium 9.1 mg/dL (8.5-10.1); Carbon Dioxide 31.5 mmol/L (21.0-32.0); Chloride 107 mmol/L (98-107); Estimated GFR (African America 40 (>=60 mL/min/1.73m^2); Estimated GFR (Non-African Ame 33 (>=60 mL/min/1.73m^2); Glucose 96 mg/dL (74-106); Potassium 3.7 mmol/L (3.5-5.1); Sodium 146 mmol/L (136-145)
--- NOTE | 2025-01-01 10:09 | PM.DS1 ---
DS: Providers Provider Date of admission: 12/29/24 18:07 Primary care physician: Velasquez Langley MD Consults: 12/30/24 Consult to Cardiology Routine Reason for consultation: bradycardia and syncope. hx SVT, DS: Diagnosis Discharge Diagnosis (1) Hypertensive urgency: (2) Syncope: (3) Bradycardia: Plan As listed above, below and others that are not listed DS: Summary Hospital Course Hospital Course: Mrs. Johnson is an 79-year-old female who passed out while getting pulmonary function test and was placed under observation for the following: Syncopal episode while patient was getting an outpatient PFTs No neurological symptoms otherwise. CT head is negative for acute intracranial process. CT is positive for microvascular disease CT of the chest negative for PE. Her troponin is negative. EKG does not show ST elevation or depression. EKG showed bradycardia. Patient had a Holter monitor in October 2023 which showed episodes of bradycardia with a heart rate down to the 50s and intermittent episode of SVT. Potentially patient could have had cardiac dysrhythmia causing her to pass out at PFTs. Patient is on amiodarone and Coreg. Patient is no longer on metoprolol. I requested cardiac consultation to evaluate her syncopal episode and review of her bradycardia and previous documented SVT on Holter monitor that was completed in October 2023. Echocardiogram completed in August 2024 for which she does not show any evidence of cardiomyopathy or significant valvular disease Ekg/Ecg Technician recommended Holter monitor. He also recommended a continuation of the lower dose of Coreg and follow-up in the outpatient setting. Hypertensive urgency, uncontrolled hypertension. Her Coreg dose was cut down to 6.25 twice a day due to her bradycardia. I started amlodipine 2.5 mg. Blood pressure continues to be elevated. Increased to 5 mg daily. Continue diuretics. Shortness of breath for months and years according to patient and her . Patient had smoked for 30 years but quit [address] of the chest negative for PE or any other parenchymal disease other than emphysematous changes. Patient did not complete her PFTs in the outpatient setting unfortunately therefore I cannot determine the significance of her emphysema. Elevated BNP but no overwhelming evidence of fluid overload. No lower extremities edema, no JVD and CT imaging does not show any interstitial edema. Recent echo does not show cardiomyopathy or significant valvular disease. Cardiology recommended continuation of daily diuresis at home. Home O2 evaluation before discharge. Patient did not qualify for oxygen. Patient will be arranged to follow-up with pulmonary as well. Positive D-dimer. CTA of the chest negative for PE. No clinical evidence to suggest lower extremities DVT. No swelling or tenderness. Furthermore, patient is on ELiquis. Venous duplex of the legs came back negative. Peripheral vascular disease. History of renal artery stenting as per . History of abdominal aortic aneurysm. Patient is on Plavix as well as Eliquis. Current Eliquis dose is 5 mg twice a day. Patient is over the age of 78 and her creatinine is hovering below and above 1.5 My recommendation is to change Eliquis down to 2.5 mg twice a day if her creatinine stays above 1.5 over the next several weeks according to the guidelines. CKD stage III creatinine is fluctuating between 1.3 and 1.5. Diuretic adjustment will need to take place to keep patient in euvolemic state. Avoid nephrotoxic drugs Anemia, no evidence of acute blood loss. Patient will likely require to have anemia workup to be done in the outpatient setting to be handled by PCP in collaboration with other needed outpatient providers. This may include but not limited to EGD, colonoscopy, referral to see hematology and other needed age-appropriate cancer screening. History of eczema on immunotherapy Hold for now. Chronic, subacute medical conditions not listed above, abnormal labs and imaging, incidental findings seen on labs and or imaging. These would need to be addressed. Could be addressed later on or in the outpatient setting by PCP collaboration with other needed outpatient providers when time and condition are appropriate. Patient has multiple complex medical issues as listed above and others that are not listed. All appear to be stable. Patient is back to baseline state. Patient is feeling great and ready physically and psychologically to go home. At this time, I do not have any clear or strong clinical justification to extend inpatient hospitalization. Patient however will require close and frequent monitoring as well as additional work-up, investigation and therapeutic intervention that could take place from this point on post discharge. That is to prevent relapse, decompensation, rehospitalization and other medical implications.. Discharge medications as listed are not final, complete or set in stone. These medications will need to be titrated and adjusted by your primary care doctor and other outpatient providers based on clinical progression, vital signs and volume status. I instructed home health care nurse to: Please ensure that the patient is taking the right medications according to the discharge medications listed above. Please monitor her blood pressure and pulse. Communicate vital signs to PCP and cardiology for BP meds adjustment Please monitor her volume status, weigh patient daily, communicate to your assessment to PCP and ec teacher for diuretics management. Please draw BMP every week for the next 4 weeks and communicate results to PCP and ec teacher for diuretics and medications adjustment. I instructed patient to ask her primary care doctor to obtain [place] record entirely to address abnormalities seen on labs and imaging that I have and have not addressed during this hospitalization, follow-up on pending blood work, imaging and pathology is if available and to follow-up on needed medical care in the outpatient setting. Time Spent with Patient Time attestation: Total time spent providing and/or coordinating discharge services: Exam Constitutional Vital Signs, click to edit/add: Last Vital Signs Temp 98.6 F 01/01/25 08:18 Pulse 64 01/01/25 09:55 Resp 18 01/01/25 04:00 BP 152/66 H 01/01/25 08:18 Pulse Ox 97 01/01/25 08:18 O2 Del Method Room Air 01/01/25 08:18 O2 Flow Rate 1 12/31/24 20:44 DS: Data Data Completed and Pending Labs on day of discharge: Labs from last 24 hours 01/01/25 06:00 Sodium 146 H Potassium 3.7 Chloride 107 Carbon Dioxide 31.5 Anion Gap 11.2 BUN 22.0 H Creatinine 1.52 H Est GFR ( Amer) 40 L Est GFR (Non-Af Amer) 33 L BUN/Creatinine Ratio 14.5 Glucose 96 Calcium 9.1 Discharge Plan Discharge Disposition: Home Health Service Discharge Medications: New spironolactone [Aldactone] 25 mg tablet 25 mg PO DAILY Qty: 30 0RF amlodipine 5 mg Tablet 5 mg PO DAILY Qty: 30 1RF Continued Eliquis 5 mg Tablet 5 mg PO BID Qty: 60 11RF amiodarone 200 mg tablet 200 mg PO DAILY Spiriva Respimat 2.5 mcg/actuation mist 2 puff INHALATION DAILY PRN (Reason: shortness of breath) Patient Comments: states that the pt uses as needed ezetimibe 10 mg tablet 10 mg PO .QHS ropinirole 0.5 mg tablet 0.5 mg PO .QHS Rx Instructions: 1-3 HOURS BEFORE BEDTIME nitroglycerin 0.4 mg Tablet, Sublingual 0.4 mg sublingual Q5M PRN (Reason: Chest Pain) Qty: 20 11RF Patient Comments: has not used for awhile triamcinolone acetonide 0.1 % cream 1 applic TOPICAL BID PRN (Reason: itching) memantine 21 mg capsule,sprinkle,ER 24hr 21 mg PO Q24H clopidogrel 75 mg tablet 75 mg PO DAILY Repatha SureClick 140 mg/mL pen injector 140 mg SUBCUT Q14D liothyronine 5 mcg tablet 10 mcg PO DAILY meclizine 25 mg tablet 25 mg PO BID PRN (Reason: dizziness) Adbry 300 mg/2 mL auto-injector 300 mg subcut Q28D ferrous sulfate [Feosol] 325 mg (65 mg iron) tablet 325 mg PO BID albuterol sulfate 90 mcg/actuation HFA aerosol inhaler 2 puff INHALATION Q4H PRN (Reason: shortness of breath or wheezing) Patient Comments: takes as needed Changed carvedilol 12.5 mg tablet 6.25 mg PO Q12H Qty: 0 0RF furosemide 20 mg tablet 20 mg PO BID Qty: 60 1RF Print Language: Frisian Activity Restrictions/Additional Instructions: I may not have addressed or treated all of your medical illnesses or the abnormal blood work or imaging studies during this hospitalization. Please ask your primary care provider to obtain [place] records entirely to follow up on all of the abnormal physical, laboratory, and imaging findings that I have not addressed. Please return back to the emergency room or seek medical attention if your symptoms worsen or return. Discharging you from [place] does not mean that your medical care ends here and now. You may still need additional monitoring, work up, investigation, and treatment plan to be handled from this point on by out patient providers including your primary care provider and specialists. For any medication question, please contact your retail pharmacist or your primary care provider. For home health care nurse: Please ensure that the patient is taking the right medications according to the discharge medications listed above. Please monitor her blood pressure and pulse. Communicate vital signs to PCP and cardiology for BP meds adjustment Please monitor her volume status, weigh patient daily, communicate to your assessment to PCP and ec teacher for diuretics management. Please draw BMP every week for the next 4 weeks and communicate results to PCP and ec teacher for diuretics and medications adjustment. Thank you. Filler In/Client Solutions Manager Instructions: Discharge with [facility], skilled nurse. They should contact within 48 hours of discharge. If you do not hear from [facility] within that time frame please call [phone]. Forms: Portal Instructions Referrals: DEMARCUS ELIZABETH MD [Physician, Family Practice] Referral Note: For COPD evaluation Follow Up Appointments: Dr. Langley - 01/05 @ 10:30am [phone] * will need to send a referral to [facility] Pulmonology for COPD [facility] cardiology, [place] Office [phone] February 07, 2025 at 1:[address] Fulton
[2025-01-01] MEDS: POTASSIUM CHLORIDE 10 MEQ ER TABLET 20 MEQ PO (10:11)
[2025-01-01] MEDS: AMLODIPINE BESYLATE 5 MG TABLET PO (10:11)
[2025-01-01] MEDS: APIXABAN 5 MG TABLET PO (10:11)
[2025-01-01] MEDS: DOXYCYCLINE MONOHYDRATE 100 MG CAPSULE PO (10:11)
[2025-01-01] MEDS: LIOTHYRONINE SODIUM 5 MCG TABLET 10 MCG PO (10:12)
[2025-01-01] MEDS: AMIODARONE HCL 200 MG TABLET PO (10:12)
[2025-01-01] MEDS: CLOPIDOGREL BISULFATE 75 MG TABLET PO (10:13)
[2025-01-01] MEDS: CARVEDILOL 6.25 MG TABLET PO (10:13)
[2025-01-01] MEDS: MEMANTINE HCL 7 MG CAP XR 21 MG PO (10:45)
--- OUTSIDE RECORDS SUMMARY | 2025-01-01 15:57 | XMS_ITS | Encounter Summary ---
Author Organization [facility] Address [address] [place] [address] Care Team Providers Care [employer] Operation Name Role Phone Velasquez Langley MD Primary Care Provider [phone] Encounter Details DateTypeDepartmentCare Team (Latest Contact Info)Baahqzxyqhk78/29/2025Orders Only [facility] Heart at [facility] [address] [place] [address] Kristie Chow MA ZAVALA (dyspnea on exertion) (Primary Dx) Social History Tobacco UseTypesPacks/DayYears UsedDateSmoking Tobacco: FormerCigarettes Smokeless Tobacco: NeverAlcohol UseStandard Drinks/WeekCommentsNever0 (1 standard drink = 0.6 oz pure alcohol)[facility] UtilitiesAnswerDate RecordedIn the past 12 months has the [employer], gas, oil, or water [employer] threatened to shut off services in your [...] times a week01/27/2024How often do you attend yarsanism or samaritan services?Never01/27/2024o you belong to any clubs or organizations such as yarsanism groups, unions, fraternal or athletic groups, or school groups?No01/27/2024How often do you attend meetings of the clubs or organizations you belong to?Never01/27/2024re you , , , , never , or living with a partner?Uqyutth8501/27/2024 AUDIT-CAnswerDate RecordedQ1: How often do you have [...] at all 08/26/2024PHQ-2AnswerDate RecordedPatient Health Questionnaire-2 Score0 05/11/2024[facility] [place] of Occupational Health - Occupational Stress QuestionnaireAnswerDate RecordedDo you feel stress - tense, restless, nervous, or anxious, or unable to sleep at night because yourmind is troubled all the time - these days?To some emravd4701/27/2024UT Safety & EnvironmentAnswerDate RecordedFear of Current or [...] were you homeless or living in a jail (including now)?No08/26/2024 Hunger Vital SignAnswerDate RecordedWithin the past 12 months, you worried that your food would run out before you got the money to buymore.Never true08/26/2024 Within the past 12 months, the food you bought just didn't last and you didn't have money to get more.Never true08/26/2024CommentsNoSex and Gender InformationValueDate RecordedSex Assigned at JlrhdMaxcfn69/03/2024 11:08 AM EST Legal HprKqlath05/29/2022 11:01 PM EDTGender UyqgrldzJrswph24/03/2024 11:08 AM ESTSexual OrientationHeterosexual or Adddynkp14/03/2024 11:08 AM ESTdocumented as of this encounter Functional Status * BPAnswerDate of PxuejqaxyiMgxlin631 2:12 PM Guerline Sheth MA * PulseAnswerDate of GxmjpioyloHyciqk2160/29/2025 2:12 PM Guerline Sheth MA * Patient PositionAnswerDate of McvzluwtqtUaztnrSpkhnbv82/29/2025 2:12 PM EDT Guerline Carlos MA * BPAnswerDate of YvdtuluxlgGwkcoi147/6712/22/2024 2:12 PM Guerline Sheth MA * PulseAnswerDate of BfmxndfczmMuyhxl1082/29/2025 2:12 PM Guerline Sheth MA * ZyK6CndmiiQenp of PjmzihactpZaphvn0860/29/2025 2:12 PM Guerline Sheth MA * BP LocationAnswerDate of AssessmentAuthorLe arm12/22/2024 2:12 PM EDT Guerline Carlos MA * Patient PositionAnswerDate of CwwtxssuaiDvwuyiIcxadhb35/29/2025 2:12 PM EDT Guerline Carlos MA documented as of this encounter Plan of Treatment DateTypeDepartmentCare Team (Latest Contact Info)Olunwuuidec29/15/2025 1:20 PM ESTOffice Visit [facility] [address] [place] [id number] Bhavesh Fulton MD [address] [facility] [id number] [place] [address] NameTypePriorityAssociated DiagnosesOrder SchedulePulmonary function testing Spirometry; Body Box (lung volumes, airway resistance, and SVC), DLCOPFTRoutine ZAVALA (dyspnea on exertion) Expected: 12/22/2024 (Approximate), Expires: 12/22/2025documented as of this encounter Visit Diagnoses Diagnosis ZAVALA (dyspnea on exertion)- Primary Other dyspnea and respiratory abnormality documented in this encounter Care Teams Team MemberRelationshipSpecialtyStart DateEnd Date Velasquez Langley MD [address] [facility] [address] [address] PCP - Thovnkw53/8/24documented as of this encounter
--- OUTSIDE RECORDS SUMMARY | 2025-01-01 15:57 | XMS_ITS | Patient Health Record ---
Author Organization [facility] in [place] Address [address] [place] [address] Care Team Providers Care Full Roll Inspector Name Role Phone Enio Langley Primary Care Provider [phone] Valerio Wang Unavailable [phone] Usman Zavala Unavailable [phone] Allergies Allergen (clinical drug ingredient) Drug/Non Drug Allergy documented on EMR Reaction Allergy Type Onset Date Status aspirin Aspirin Excessive Bleeding Drug Allergy ActiveatorvastatinAtorvastatin CalciumUnknownDrug AllergyActivemoxifloxacin AveloxUnknownDrug AllergyActiveciprofloxacinCiproUnknownDrug AllergyActive meperidineDemerolUnknownDrug AllergyActiveNubainUnknownDrug AllergyActive promethazinePhenerganUnknownDrug AllergyActivecefdinirCefdinirUnknownDrug AllergyActiveSubstance with sulfonamide structure and antibacterial mechanism of action (substance)Sulfa AntibioticsUnknownDrug AllergyActive Results Component Value Reference Range Notes UA DIP NONAUTO WO MICRO (810 02) - IN OFFICE Reviewed date:08/16/2024 07:19:28 PM Interpretation: Performing Lab: Notes/Report: COLOR straw CLARITYclearGLUCOSEnBILIRUBINnKETONEnSPECIFIC GRAVITY1.562UWIUNeFB9WPRCSJZolayo UROBILINOGENnNITRITEnLEUKOCYTE ESTERASE++PROF 14(COMP METB) Reviewed date:08/16/2024 07:19:28 PM Interpretation: Performing Lab: Notes/Report: [facility] ,Nzjivd123075-633 mmol/LPotassium4.53.5-5.1 mmol/JByoqaxfw23914-503 mmol/LCarbon Zsdxtaf22.421.0-32.0 mmol/LAnion Gap12.0Ynbihpq44233-334 mg/dLBlood Urea Ooyuzktt14.07.0-18.0 mg/dLCreatinine1.480.55-1.02 mg/dLEstimated GFR ( Kkdofds48>=60 mL/min/1.73m 2Estimated GFR (Non- Ame34>=60 mL/min/1.73m 2 BUN Creatinine Ratio30.6Egmgqzx6.88.5-10.1 mg/dLBilirubin Total0.40.2-1.0 mg/dL Aspartate Amino Vnaezsflqgt7167-49 U/LAlanine Wwtpxvrsubiodfxi6936-28 U/L Alkaline Xudanipxurp88897-819 U/LTotal Protein6.26.4-8.2 g/dLAlbumin Level3.1 3.4-5.0 g/dLGlobulin3.1Albumin Globulin Ratio1.0Performing Lab:see noteML - [facility] LBUA DIP NONAUTO WO MICRO (83063) - IN OFFICE Reviewed date:10/20/2024 11:06:25 AM Interpretation: Performing Lab: Notes/Report: COLORYellowCLARITYClearGLUCOSENegBILIRUBINNegKETONENegSPECIFIC GRAVITY1.010BLOOD WusIC3TSGAYUN+UROBILINOGENNegNITRITENegLEUKOCYTE ESTERASE++BLOOD GASES BTY Reviewed date:02/02/2024 10:16:01 AM Interpretation: Performing Lab: Notes/Report: [facility] ,pH ABG7.3827.350-7.450ABG XML924.435.0-45.0 mmHgPO2 ABG57.380.0-100.0 mmHg RESULTS CALLED TO GILBERT MESA(RN) IN ERHCO3 ABG27.622.0-26.0 mmol/LBase Excess ABG2.5-2.0-2.0 mmol/LOxygen Saturation ABG90.7Allen TestPOSPOSITIVEO2 ModeNASAL CANNULALiters per Iscxwx8Izbzgmer SiteLEFT RADIALPerforming Lab:see noteML - [facility] LBBNP Reviewed date:02/02/2024 10:16:01 AM Interpretation: Performing Lab: Notes/Report: [facility] ,NT Pro B Type Natriuretic Gczj5549.0<=1800.0 pg/mLRESULTS CALLED TO RENEE CEDEÑO) IN ERPerforming Lab:see noteML - [facility] LBCBC AUTO DIFF Reviewed date:02/02/2024 10:16:01 AM Interpretation: Performing Lab: Notes/Report: [facility] ,White Blood Count9.64.0-11.0 10 3/uLRed Blood Count3.114.20-5.40 10 6/uL Hemoglobin8.812.0-16.0 g/iHWjqsruijhl99.836.0-48.0 %Mean Corpuscular Qvngwj17.6 81.0-99.0 fLMean Corpuscular Xdrzaifsdi92.326.7-34.0 pgMean Corpuscular HGB Conc 30.629.9-35.2 g/dLRed Cell Distribution Width16.611.0-15.0 %Platelet Qgtao192 150-450 10 3/uLMean Platelet Irbrfx68.49.5-13.5 fLNeutrophils Percent Auto78.3 43.0-75.0 %Lymphocytes Percent Auto12.920.5-60.0 %Monocytes Percent Auto3.81.7- 12.0 %Eosinophils Percent Auto3.80.9-7.0 %Basophils Percent Auto0.40.2-2.0 % Immature Granulocytes Pct Auto0.80.0-0.5 %Neutrophils Absolute Auto7.51.4-6.5 10 3/uLLymphocytes Absolute Auto1.21.2-3.8 10 3/uLMonocytes Absolute Auto0.40.3-0.8 10 3/uLEosinophils Absolute Auto0.40.0-0.7 10 3/uLBasophils Absolute Auto0.00.0- 0.1 10 3/uLImmature Granulocytes Abs Auto0.080.00-0.03 10 3/uLPerforming Lab:see noteML - [facility] LBLACTATE or LACTIC ACID Reviewed date:02/02/2024 10:16:01 AM Interpretation: Performing Lab: Notes/Report: [facility] ,Lactate/Lactic Acid0.70.4-2.0 mmol/LPerforming Lab:see noteML - [facility] LBPROF 14(COMP METB) Reviewed date:02/02/2024 10:16:01 AM Interpretation: Performing Lab: Notes/Report: [facility] ,Tlifgl971736-441 mmol/LPotassium4.43.5-5.1 mmol/ZThimakwf06587-561 mmol/LCarbon Cnmrcll06.221.0-32.0 mmol/LAnion Gap9.0Tmhrhwl13298-363 mg/dLBlood Urea Nitrogen 22.07.0-18.0 mg/dLCreatinine1.440.55-1.02 mg/dLEstimated GFR ( Xuaubfl36 >=60 mL/min/1.73m 2Estimated GFR (Non- Ame35>=60 mL/min/1.73m 2BUN Creatinine Ratio15.0Kvuiser2.48.5-10.1 mg/dLBilirubin Total0.60.2-1.0 mg/dL Aspartate Amino Lqafivuueha2974-01 U/LAlanine Vjfzuoahicqfhidk9654-66 U/L Alkaline Rkzsorzicrk25723-771 U/LTotal Protein6.06.4-8.2 g/dLAlbumin Level2.6 3.4-5.0 g/dLGlobulin3.4Albumin Globulin Ratio0.8Performing Lab:see noteML - [facility] LBUA RANDOM W or MICROSCOPIC Reviewed date:02/02/2024 10:16:00 AM Interpretation: Performing Lab: Notes/Report: [facility] ,Color UrineLT. YELLOWYELLOWClarity UrineCLEARCLEARSpecific Uriah Urine1.015 1.005-1.025pH Urine6.05.0-9.0Protein Jsqdw80PJV/TRACE mg/dLGlucose Urine UA NEGATIVENEGATIVE mg/dLBilirubin UrineNEGATIVENEGATIVEKetones UrineNEGATIVE NEGATIVE mg/dLBlood UrineNEGATIVENEGATIVENitrite UrineNEGATIVENEGATIVE Urobilinogen Urine0.20.2-1.0 EU/dLLeukocyte Esterase UrineNEGATIVENEGATIVEWBC Urine0-2NONE SEEN #/HPFRBC Urine0-20-2 #/HPFBacteria UrineTRACENONE SEEN #/HPF Mucus UrineNONE SEENNONE SEENSquamous Epithelial Cell UrineRARENONE/RARE #/LPF Crystals Seen?None SeenNone Seen #/HPFCast Seen?NONE SEENNONE SEEN #/LPFUrine Culture IndicatedNOPerforming Lab:see note - [facility] LB Prothrombin Time INR Reviewed date:02/02/2024 10:16:00 AM Interpretation: Performing Lab: Notes/Report: [facility] ,Prothrombin Time11.19.0-11.6 secINR1.05 DESIRED INR: 2.0-3.0 CONDITIONS NOT LISTED BELOW 2.5-3.5 FOR PROSTHETIC HEART VALVE REPLACEMENT 2.5-3.5 RECURRENT THROMBOSIS Performing [facility] LBTroponin I High Sensitivity Reviewed date:02/02/2024 10:16:01 AM Interpretation: Performing Lab: Notes/Report: [facility] ,Troponin I High Jnzalyzszmx02.34.0-51.3 pg/mL CUT-OFF POINTS HAVE BEEN ESTABLISHED BASED [...] OTHER DIAGNOSTIC AND CLINICAL INFORMATION. Performing Lab:see 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 Signed By: 02/02/24528 DD/ 44 TD/TT: Patients Transporter:CT head/brain wo con Reviewed date:02/02/2024 10:16:00 AM Interpretation: Performing Lab: Notes/Report: Source Facility: [place] [address] CT Scan Report Signed Patient: ZACHARY MAYNARD MR#: [id number] : 1945 Acct:[id number] Age/Sex: 78 / F ADM Date: 02/01/24 Loc: ER Attending Dr: Ordering Physician: Ryan Jamil Date of Service: 02/01/24 Procedure(s): CT head/brain wo con Accession Number(s): [id number] cc: Adina Langley M.D. [place] [id number] Patient Name: ZACHARY MAYNARD MRN: [id number] date: 1945 Sex: F Assigned Patient Location: ER Current Patient Location: ED.MAIN Accession/Order Number: [id number] Exam Date: 02/01/2024 20:55 Report Date: 02/01/2024 [...] M.D. Signed By: 02/01/242231 DD/ 28 TD/TT: Patients Transporter:XR acute abdomen series Reviewed date:02/02/2024 10:16:00 AM Interpretation: Performing Lab: Notes/Report: Source Facility: [place] [address] XRay Report Signed Patient: ZACHARY MAYNARD MR#: [id number] : 1945 Acct:[id number] Age/Sex: 78 / F ADM Date: 02/01/24 Loc: ER Attending Dr: Ordering Physician: Ryan Jamil Date of Service: 02/01/24 Procedure(s): XR acute abdomen series Accession Number(s): [id number] cc: Adina Langley M.D.; Ryan Jamil [place] [address] Patient Name: ZACHARY MAYNARD MRN: [id number] date: 1945 Sex: F Assigned Patient Location: ER Current Patient Location: ER Accession/Order Number: [id number] Exam Date: 02/01/2024 20:55 Report Date: 02/01/2024 22:45 At the request of: RYAN MARKER Procedure: XR acute abdomen series EXAM: XR [...] KARLA CALIX Date: 02/01/2024 22:45 Dictated By: Krala Calix M.D. Signed By: 02/01/248 DD/ 44 TD/TT: Patients Transporter:CBC AUTO DIFF Reviewed date:02/02/2024 10:16:00 AM Interpretation: Performing Lab: Notes/Report: [facility] ,White Blood Count9.64.0-11.0 10 3/uLRed Blood Count3.144.20-5.40 10 6/uL Hemoglobin9.012.0-16.0 g/lWNjxahkzqnz40.736.0-48.0 %Mean Corpuscular Okmqxg20.4 81.0-99.0 fLMean Corpuscular Xvbxhzplgj16.726.7-34.0 pgMean Corpuscular HGB Conc 31.429.9-35.2 g/dLRed Cell Distribution Width16.511.0-15.0 %Platelet Lwkig227 150-450 10 3/uLMean Platelet Wnjzdz15.49.5-13.5 fLNeutrophils Percent Auto81.3 43.0-75.0 %Lymphocytes Percent Auto10.420.5-60.0 %Monocytes Percent Auto4.81.7- 12.0 %Eosinophils Percent Auto2.50.9-7.0 %Basophils Percent Auto0.30.2-2.0 % Immature Granulocytes Pct Auto0.70.0-0.5 %Neutrophils Absolute Auto7.81.4-6.5 10 3/uLLymphocytes Absolute Auto1.01.2-3.8 10 3/uLMonocytes Absolute Auto0.50.3-0.8 10 3/uLEosinophils Absolute Auto0.20.0-0.7 10 3/uLBasophils Absolute Auto0.00.0- 0.1 10 3/uLImmature Granulocytes Abs Auto0.070.00-0.03 10 3/uLPerforming Lab:see note - [facility] LBTroponin I High Sensitivity Reviewed date:02/02/2024 10:16:00 AM Interpretation: Performing Lab: Notes/Report: [facility] ,Troponin I High Birjuqzpdmb16.74.0-51.3 pg/mL RESULTS CALLED TO RENEE HERMAN RN [...] AND CLINICAL INFORMATION. Performing Lab:see noteML - [facility] LBCT angio abdomen pelvis Reviewed date:02/02/2024 10:16:00 AM Interpretation: Performing Lab: Notes/Report: Source Facility: [facility]-[address] [place] [address] [place] [address] CT Scan Report Signed Patient: ZACHARY MAYNARD MR#: [id number] : 1945 Acct:[id number] Age/Sex: 78 / F ADM Date: 02/01/24 Loc: ER Attending Dr: Ordering Physician: Ryan Jamil Date of Service: 02/01/24 Procedure(s): CT angio abdomen pelvis Accession Number(s): [id number] cc: Adina Langley M.D. [place] [id number] Patient Name: ZACHARY MAYNARD MRN: [id number] date: 1945 Sex: F Assigned Patient Location: ER Current Patient Location: ER Accession/Order Number: [id number] Exam Date: 02/01/2024 23:12 Report Date: 02/02/2024 00:41 At the request of: RYAN MARKER Procedure: CT angio abdomen pelvis CT [...] Dictated By: Kayleigh Daniels M.D. Signed By: 02/02/24 0043 DD/ TD/TT: Patients Transporter:CBC AUTO DIFF Reviewed date:02/16/2024 07:54:36 PM Interpretation: Performing Lab: Notes/Report: [facility] ,White Blood Count6.64.0-11.0 10 3/uLRed Blood Count2.994.20-5.40 10 6/uL Hemoglobin8.412.0-16.0 g/kGTotkzahqbo22.336.0-48.0 %Mean Corpuscular Bfwxgg62.3 81.0-99.0 fLMean Corpuscular Soxtyudcpt24.126.7-34.0 pgMean Corpuscular HGB Conc 30.829.9-35.2 g/dLRed Cell Distribution Width16.611.0-15.0 %Platelet Npmdn542 150-450 10 3/uLMean Platelet Qtbqar76.39.5-13.5 fLNeutrophils Percent Auto65.3 43.0-75.0 %Lymphocytes Percent Auto16.820.5-60.0 %Monocytes Percent Auto11.41.7- 12.0 %Eosinophils Percent Auto4.40.9-7.0 %Basophils Percent Auto0.90.2-2.0 % Immature Granulocytes Pct Auto1.20.0-0.5 %Neutrophils Absolute Auto4.31.4-6.5 10 3/uLLymphocytes Absolute Auto1.11.2-3.8 10 3/uLMonocytes Absolute Auto0.80.3-0.8 10 3/uLEosinophils Absolute Auto0.30.0-0.7 10 3/uLBasophils Absolute Auto0.10.0- 0.1 10 3/uLImmature Granulocytes Abs Auto0.080.00-0.03 10 3/uLPerforming Lab:see noteML - [facility] LBBNP Reviewed date:02/29/2024 05:39:20 PM Interpretation: Performing Lab: Notes/Report: [facility] ,NT Pro B Type Natriuretic Fobi6543.0<=1800.0 pg/mLRESULTS CALLED TO ROSA ANDRADE RN at 1956Performing Lab:see note - [facility] LBCBC AUTO DIFF Reviewed date:02/29/2024 05:39:20 PM Interpretation: Performing Lab: Notes/Report: [facility] ,White Blood Count5.04.0-11.0 10 3/uLRed Blood Count3.154.20-5.40 10 6/uL Hemoglobin8.812.0-16.0 g/dSToggpcdvsr64.436.0-48.0 %Mean Corpuscular Hvpcqi31.2 81.0-99.0 fLMean Corpuscular Gvqnadsyhy65.926.7-34.0 pgMean Corpuscular HGB Conc 31.029.9-35.2 g/dLRed Cell Distribution Width16.911.0-15.0 %Platelet Iehrh696 150-450 10 3/uLMean Platelet Akdnba96.89.5-13.5 fLNeutrophils Percent Auto53.7 43.0-75.0 %Lymphocytes Percent Auto28.920.5-60.0 %Monocytes Percent Auto8.91.7- 12.0 %Eosinophils Percent Auto7.50.9-7.0 %Basophils Percent Auto0.60.2-2.0 % Immature Granulocytes Pct Auto0.40.0-0.5 %Neutrophils Absolute Auto2.71.4-6.5 10 3/uLLymphocytes Absolute Auto1.41.2-3.8 10 3/uLMonocytes Absolute Auto0.40.3-0.8 10 3/uLEosinophils Absolute Auto0.40.0-0.7 10 3/uLBasophils Absolute Auto0.00.0- 0.1 10 3/uLImmature Granulocytes Abs Auto0.020.00-0.03 10 3/uLPerforming Lab:see noteML - [facility] LBLIPASE Reviewed date:02/29/2024 05:39:20 PM Interpretation: Performing Lab: Notes/Report: [facility] ,Ncxuso26.016.0-77.0 U/LPerforming Lab:see noteML - [facility] LBPROF 14(COMP METB) Reviewed date:02/29/2024 05:39:20 PM Interpretation: Performing Lab: Notes/Report: [facility] ,Vizznp454076-551 mmol/LPotassium4.33.5-5.1 mmol/HWbzhsvbr35867-316 mmol/LCarbon Zapbyiw75.421.0-32.0 mmol/LAnion Gap11.3Chnkfed98946-388 mg/dLBlood Urea Hhmthhqq29.07.0-18.0 mg/dLCreatinine1.890.55-1.02 mg/dLEstimated GFR ( Mfsenrx26>=60 mL/min/1.73m 2Estimated GFR (Non- Ame26>=60 mL/min/1.73m 2 BUN Creatinine Ratio13.7Ctlqjgv1.98.5-10.1 mg/dLBilirubin Total0.40.2-1.0 mg/dL Aspartate Amino Nqkvzdvzktq7111-85 U/LAlanine Vhiwsdtfaqnwjphq0120-73 U/L Alkaline Yjpogwnrykz87550-421 U/LTotal Protein6.26.4-8.2 g/dLAlbumin Level2.9 3.4-5.0 g/dLGlobulin3.3Albumin Globulin Ratio0.9Performing Lab:see note - [facility] LBProthrombin Time INR Reviewed date:02/29/2024 05:39:20 PM Interpretation: Performing Lab: Notes/Report: [facility] ,Prothrombin Time11.19.0-11.6 secINR1.05 DESIRED INR: 2.0-3.0 CONDITIONS NOT LISTED BELOW 2.5-3.5 FOR PROSTHETIC HEART VALVE REPLACEMENT 2.5-3.5 RECURRENT THROMBOSIS Performing Lab:see [facility] LBTroponin I High Sensitivity Reviewed date:02/29/2024 05:39:20 PM Interpretation: Performing Lab: Notes/Report: [facility] ,Troponin I High Sensitivity8.44.0-51.3 pg/mL CUT-OFF POINTS [...] OTHER DIAGNOSTIC AND CLINICAL INFORMATION. Performing Lab:see 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 Signed By: 02/28/24 0811 DD/ 57 TD/TT: Patients Transporter:CT chest wo con Reviewed date:02/29/2024 05:39:19 PM Interpretation: Performing Lab: Notes/Report: Source Facility: [place] [address] CT Scan Report Signed Patient: ZACHARY MAYNARD MR#: [id number] : 1945 Acct:[id number] Age/Sex: 78 / F ADM Date: 02/25/24 Loc: ER Attending Dr: Ordering Physician: Valentina Guzman Date of Service: 02/25/24 Procedure(s): CT chest wo con Accession Number(s): [id number] cc: Adina Langley M.D. [place] [id number] Patient Name: ZACHARY MAYNARD MRN: [id number] date: 1945 Sex: F Assigned Patient Location: ER Current Patient Location: ER Accession/Order Number: [id number] Exam Date: 02/25/2024 19:38 Report Date: 02/25/2024 [...] M.D. Signed By: 02/25/242010 DD/ 07 TD/TT: Patients Transporter:CT abdomen pelvis wo con Reviewed date:02/29/2024 05:39:20 PM Interpretation: Performing Lab: Notes/Report: Source Facility: [place] [address] CT Scan Report Signed Patient: ZACHARY MAYNARD MR#: [id number] : 1945 Acct:[id number] Age/Sex: 78 / F ADM Date: 02/25/24 Loc: ER Attending Dr: Ordering Physician: Valentina Guzman Date of Service: 02/25/24 Procedure(s): CT abdomen pelvis wo con Accession Number(s): [id number] cc: Adina Langley M.D. [place] [address] Patient Name: ZACHARY MAYNARD MRN: [id number] date: 1945 Sex: F Assigned Patient Location: ER Current Patient Location: ER Accession/Order Number: [id number] Exam Date: 02/25/2024 19:38 Report Date: 02/25/2024 [...] M.D. Signed By: 02/25/242010 DD/ 07 TD/TT: Patients Transporter:RINA booker LT min 3V Reviewed date:04/04/2024 11:16:15 AM Interpretation: Performing Lab: Notes/Report: Source Facility: [facility]-[address] [place] [address] [place] [address] XRay Report Signed Patient: ZACHARY MAYNARD MR#: [id number] : 1945 Acct:[id number] Age/Sex: 78 / F ADM Date: 04/01/24 Loc: RAD Attending Dr: Adina Langley M.D. Ordering Physician: Adina Langley M.D. Date of Service: 04/01/24 Procedure(s): XR wrist LT min 3V Accession Number(s): [id number] cc: Adina Langley M.D. [place] [address] Patient Name: ZACHARY MAYNARD MRN: [id number] date: 1945 Sex: F Assigned Patient Location: [facility] Current Patient Location: [facility] Accession/Order Number: [id number] Exam Date: 04/01/2024 16:08 Report Date: 04/01/2024 [...] M.D. Signed By: 04/01/242153 DD/ 51 TD/TT: Patients Transporter:US venous doppler UE RT Reviewed date:04/01/2024 07:57:13 AM Interpretation: Performing Lab: Notes/Report: Source Facility: [place] [address] [place] [address] Ultrasound Report Signed Patient: ZACHARY MAYNARD MR#: [id number] : 1945 Acct:[id number] Age/Sex: 78 / F ADM Date: 03/31/24 Loc: RAD Attending Dr: Adina Langley M.D. Ordering Physician: Adina Langley M.D. Date of Service: 03/31/24 Procedure(s): US venous doppler UE LT Accession Number(s): [id number] cc: Adina Langley M.D. [place] [address] Patient Name: ZACHARY MAYNARD MRN: [id number] date: 1945 Sex: F Assigned Patient Location: [facility] Current Patient Location: Accession/Order Number: [id number] Exam Date: 03/31/2024 16:27 Report Date: 04/01/2024 [...] Hooker M.D. Signed By: 04/01/24 0738 DD/ TD/TT: Patients Transporter:HEMOGLOBIN Reviewed date:06/30/2024 01:21:43 PM Interpretation: Performing Lab: Notes/Report: [facility] ,Shtznerxju11.312.0-16.0 g/dLPerforming Lab:see noteML - [facility] LBLIPID PROFILE Reviewed date:07/27/2024 04:20:30 PM Interpretation: Performing Lab: Notes/Report: [facility] ,Yzgbysscbwhsr680<=150 mg/tUIfwxvefknea091<=200 mg/dLHDL Dzbcfqwajxu6449-37 mg/dL > or =60 mg/dl - LOW CARDIOVASCULAR RISK <40 mg/dl - HIGH CARDIOVASCULAR RISK LDL Cholesterol Vueafqpekn25.0 <100 mg/dl OPTIMAL 100-129 mg/dl NEAR OR ABOVE OPTIMAL 130-159 mg/dl BORDERLINE HIGH 160-189 mg/dl HIGH >190 mg/dl VERY HIGH VLDL TLBAJOONQJU65.2Chol HDL Ratio3.3 3.3 - 4.4 LOW RISK 4.4 - 7.1 AVERAGE RISK 7.1 - 11.0 MODERATE RISK >11.0 HIGH RISK Performing Lab:see note - [facility] LBSGOT Reviewed date:07/27/2024 04:20:30 PM Interpretation: Performing Lab: Notes/Report: [facility] ,Aspartate Amino Ycauzyxyttp7312-26 U/LPerforming Lab:see note - [facility] LBSGPT Reviewed date:07/27/2024 04:20:30 PM Interpretation: Performing Lab: Notes/Report: [facility] ,Alanine Invylyobzqdibvnv3419-50 U/LPerforming Lab:see note - [facility] LBUrine Culture - [facility] Reviewed date:08/19/2024 07:15:04 PM Interpretation: Performing Lab: Notes/Report: [facility] ,Urine Culture - FRMCSee Below For Report Urine Culture - [facility] <9,000 colonies/ml mixed Urine Culture - FRMCbacterial skin contaminants Urine Culture - [facility] <9,000 colonies/ml mixed Urine Culture - [facility]2 Days Urine Culture - [facility] <9,000 colonies/ml mixed Urine Culture - [facility] Urine Culture - [facility] <9,000 colonies/ml mixed [facility] - [facility] <9,000 colonies/ml mixed Urine Culture - [id number] [place] [address] Urine Culture - [facility] <9,000 colonies/ml mixed Performing Lab:see noteML - [facility] LBPTT Reviewed date:08/23/2024 09:16:19 PM Interpretation: Performing Lab: Notes/Report: [facility] ,Partial Thromboplastin Time27.622.3-36.2 secPerforming Lab:see noteML - [facility] LBProthrombin Time INR Reviewed date:08/23/2024 09:16:19 PM Interpretation: Performing Lab: Notes/Report: [facility] ,Prothrombin Time10.49.0-11.6 secINR0.98 DESIRED INR: 2.0-3.0 CONDITIONS NOT LISTED BELOW 2.5-3.5 FOR PROSTHETIC HEART VALVE REPLACEMENT 2.5-3.5 RECURRENT THROMBOSIS Performing Lab:see noteML - [facility] LBMRSA Screening Culture Reviewed date:08/25/2024 07:11:59 PM Interpretation: Performing Lab: Notes/Report: [facility] ,MRSA Screening CultureSee Below For Report MRSA Screening Culture MRSA Screening CultureNegative MRSA Screening Culture MRSA Screening CulturePerformed at: - [facility] [place] MRSA Screening Culture MRSA Screening [id number] [place], [place] [id number] MRSA Screening Culture MRSA Screening CultureLab Director: John Paul Don PhD, Phone: [phone] MRSA Screening Culture Performing Lab:see note LC - [facility] LB SEE REPORT - 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 Ordering Physician: Adina Langley M.D. Date of Service: 09/08/24 Procedure(s): CA echo doppler complete Accession Number(s): [id number] cc: Adina Langley M.D. Patient Name: ZACHARY MAYNARD MR#: [id number] : 1945 Exam Date: 09/08/2024 Ordering Doctor: [...] M.D. Signed By: 09/08/241813 DD/ 12 TD/TT: Patients Transporter:BNP Reviewed date:12/17/2024 03:32:32 PM Interpretation: Performing Lab: Notes/Report: [facility] ,NT Pro B Type Natriuretic Ujvu53389.0<=1800.0 pg/mLRESULTS CALLED TO DR FOREMAN IN ERPerforming Lab:see noteML - [facility] LBUA RANDOM W or MICROSCOPIC Reviewed date:12/17/2024 03:32:32 PM Interpretation: Performing Lab: Notes/Report: [facility] ,Color UrineLT. YELLOWYELLOWClarity UrineCLEARCLEARSpecific Uriah Urine<=1.005 1.005-1.025pH Urine6.05.0-9.0Protein UrineNEGATIVENEG/TRACE mg/dLGlucose Urine CZ486PSVPZFZV mg/dLBilirubin UrineNEGATIVENEGATIVEKetones UrineNEGATIVENEGATIVE mg/dLBlood UrineSMALLNEGATIVENitrite UrineNEGATIVENEGATIVEUrobilinogen Urine0.2 0.2-1.0 EU/dLLeukocyte Esterase UrineNEGATIVENEGATIVEWBC UrineNONE SEENNONE SEEN #/HPFRBC Urine0-20-2 #/HPFBacteria UrineNONE SEENNONE SEEN #/HPFMucus UrineNONE SEENNONE SEENSquamous Epithelial Cell UrineRARENONE/RARE #/LPFCrystals Seen? None SeenNone Seen #/HPFCast Seen?NONE SEENNONE SEEN #/LPFPerforming Lab:see noteML - [facility] LBECG 12 lead Reviewed date:12/18/2024 03:23:11 PM Interpretation: Performing Lab: Notes/Report: Source Facility: [place] [address] Electrocardiograph Report Signed Patient: ZACHARY MAYNARD MR#: [id number] : 1945 Acct:[id number] Age/Sex: 79 / F ADM Date: 12/17/24 Loc: ER Attending Dr: Ordering Physician: Mago Foreman Date of Service: 12/17/24 Procedure(s): ECG 12 lead Accession Number(s): [id number] cc: [facility] Test Date: 2024-12-17 Pat Name: ZACHARY MAYNARD Department: Room: - Gender: Female 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 Measurements Intervals [place] Rate: 51 P: 37 WI: 152 QRS: 34 QRSD: 88 T: 42 QT: 474 QTc: 450 Interpretive Statements 1100 Sinus rhythm 9110 normal ECG Compared to ECG 02/25/2024 18:58:29 Left ventricular hypertrophy no longer present Left-axis deviation no longer present Electronically Signed On 12-17-2024 17:40:14 EDT by SCHUYLER ROBLERO M.D. Dictated By: SCHUYLER ROBLERO Signed By: 12/17/24 1740 DD/ 1103 TD/TT: Patients Transporter:CT abdomen pelvis w con Reviewed date:12/17/2024 03:32:32 PM Interpretation: Performing Lab: Notes/Report: Source Facility: [place] [address] CT Scan Report Signed Patient: ZACHARY MAYNARD MR#: [id number] : 1945 Acct:[id number] Age/Sex: 79 / F ADM Date: 12/17/24 Loc: ER Attending Dr: Ordering Physician: Mago Foreman Date of Service: 12/17/24 Procedure(s): CT abdomen pelvis w con Accession Number(s): [id number] cc: Adina Langley M.D. [place] [address] Patient Name: ZACHARY MAYNARD MRN: [facility]:[id number] date: 1945 Sex: F Assigned Patient Location: ED.MAIN Current Patient Location: ER Accession/Order Number: [id number] Exam Date: 12/17/2024 12:25 Report Date: 12/17/2024 [...] Bonds M.D. 12/17/2024 1:26 PM Dictation Location: [place] [address] Electronically authenticated by: [id number] Y Date: 12/17/2024 13:26 Dictated By: Xaiver Bonds M.D. Signed By: 12/17/24 1330 DD/ 1326 TD/TT: Patients Transporter:BNP Reviewed date:12/29/2024 04:52:32 PM Interpretation: Performing Lab: Notes/Report: [facility] ,NT Pro B Type Natriuretic Suyx4265.0<=1800.0 pg/mLRESULTS CALLED TO DR. ESTRADA Performing Lab:see noteML - [facility] LBCBC AUTO DIFF Reviewed date:12/29/2024 04:52:32 PM Interpretation: Performing Lab: Notes/Report: [facility] ,White Blood Count7.44.0-11.0 10 3/uLRed Blood Count3.604.20-5.40 10 6/uL Qoqsmawksz10.812.0-16.0 g/dANlwddtdtwp16.736.0-48.0 %Mean Corpuscular Hihuvs78.4 81.0-99.0 fLMean Corpuscular Eanvshmztg02.026.7-34.0 pgMean Corpuscular HGB Conc 31.129.9-35.2 g/dLRed Cell Distribution Width14.311.0-15.0 %Platelet Avykt052 150-450 10 3/uLMean Platelet Scuviv69.29.5-13.5 fLNeutrophils Percent Auto75.0 43.0-75.0 %Lymphocytes Percent Auto15.220.5-60.0 %Monocytes Percent Auto6.51.7- 12.0 %Eosinophils Percent Auto2.30.9-7.0 %Basophils Percent Auto0.30.2-2.0 % Immature Granulocytes Pct Auto0.70.0-0.5 %Neutrophils Absolute Auto5.61.4-6.5 10 3/uLLymphocytes Absolute Auto1.11.2-3.8 10 3/uLMonocytes Absolute Auto0.50.3- 0.8 10 3/uLEosinophils Absolute Auto0.20.0-0.7 10 3/uLBasophils Absolute Auto0.0 0.0-0.1 10 3/uLImmature Granulocytes Abs Auto0.050.00-0.03 10 3/uLPerforming Lab:see noteML - [facility] LBD-DIMER Reviewed date:12/29/2024 04:52:32 PM Interpretation: Performing Lab: Notes/Report: [facility] ,D Dimer2.02<=0.59 mg/L FEU RESULTS CALLED TO [...] and generalized hospitalization. Performing Lab:see noteML - [facility] LBUA (CLEAN or CATCH) CLOTH CARRIER or MICRO IF IND. Reviewed date:12/29/2024 04:52:32 PM Interpretation: Performing Lab: Notes/Report: [facility] ,Color UrineLT. YELLOWYELLOWClarity UrineCLEARCLEARSpecific Uriah Urine1.010 1.005-1.025pH Urine6.05.0-9.0Protein UrineNEGATIVENEG/TRACE mg/dLGlucose Urine UANEGATIVENEGATIVE mg/dLBilirubin UrineNEGATIVENEGATIVEKetones UrineNEGATIVE NEGATIVE mg/dLBlood UrineNEGATIVENEGATIVENitrite UrineNEGATIVENEGATIVE Urobilinogen Urine1.00.2-1.0 EU/dLLeukocyte Esterase UrineMODERATENEGATIVEUrine Microscopic IndicatedYESPerforming Lab:see note - [facility] LB URINE MICROSCOPIC ONLY Reviewed date:12/29/2024 04:52:32 PM Interpretation: Performing Lab: Notes/Report: [facility] ,WBC Ymclk49-07JOTS SEEN #/HPFRBC Urine0-20-2 #/HPFBacteria UrineSMALLNONE SEEN #/HPFMucus UrineSMALLNONE SEENSquamous Epithelial Cell UrineFEWNONE/RARE #/LPF Transitional Epi Cells UrineRARENONE SEEN #/LPFCrystals Seen?None SeenNone Seen #/HPFCast Seen?SEENNONE SEEN #/LPFHyaline Casts UrineRAREUrine Culture Indicated YES-FRMCPerforming Lab:see note - [facility] LBECG 12 lead Reviewed date:12/30/2024 12:47:51 PM Interpretation: Performing Lab: Notes/Report: Source Facility: [facility]-[address] [place] [address] [place] [address] Electrocardiograph Report Signed Patient: ZACHARY MAYNARD MR#: [id number] : 1945 Acct:[id number] Age/Sex: 79 / F ADM Date: 12/29/24 Loc: MS 230-[address]: Nena Barron M.D. 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 Measurements Intervals [place] Rate: 53 P: 259 WI: 134 QRS: -12 QRSD: 84 T: 43 QT: 466 QTc: 450 Interpretive Statements ECTOPIC ATRIAL RHYTHM 9140 abnormal rhythm ECG Compared to ECG 12/17/2024 11:03:35 Ectopic atrial rhythm now present Electronically Signed On 12-30-2024 7:18:29 EST by SCHUYLER ROBLERO M.D. Dictated By: SCHUYLER ROBLERO Signed By: 12/30/24 0718 DD/ 1157 TD/TT: Patients Transporter:CT angio chest Reviewed date:12/29/2024 05:27:30 PM Interpretation: Performing Lab: Notes/Report: Source Facility: [place] [address] [place] [address] CT Scan Report Signed Patient: ZACHRAY MAYNARD MR#: [id number] : 1945 Acct:[id number] Age/Sex: 79 / F ADM Date: 12/29/24 Loc: ER Attending Dr: Ordering Physician: Jaclyn Estrada Date of Service: 12/29/24 Procedure(s): CT angio chest Accession Number(s): [id number] cc: Adina Langley M.D. [place] [address] Patient Name: ZACHARY MAYNARD MRN: [id number]:[id number] date: 1945 Sex: F Assigned Patient Location: ER Current Patient Location: ER Accession/Order Number: [id number] Exam Date: 12/29/2024 16:00 Report Date: 12/29/2024 [...] Nuñez M.D. 12/29/2024 4:56 PM Dictation Location: [place] [address] Electronically authenticated by: [id number] Y Date: 12/29/2024 16:56 Dictated By: Louie Nuñez D.O. Signed By: 12/29/24 1659 DD/ 55 TD/TT: Patients Transporter:CT stroke head/brain wo con Reviewed date:12/29/2024 04:52:32 PM Interpretation: Performing Lab: Notes/Report: Source Facility: [place] [address] [place] [address] CT Scan Report Signed Patient: ZACHARY MAYNARD MR#: [id number] : 1945 Acct:[id number] Age/Sex: 79 / F ADM Date: 12/29/24 Loc: ER Attending Dr: Ordering Physician: Jaclyn Estrada Date of Service: 12/29/24 Procedure(s): CT stroke head/brain wo con Accession Number(s): [id number] cc: Adina Langley M.D. [place] [address] Patient Name: ZACHARY MAYNARD MRN: [facility]:[id number] date: 1945 Sex: F Assigned Patient Location: ER Current Patient Location: ED.MAIN Accession/Order Number: [id number] Exam Date: 12/29/2024 12:25 Report Date: 12/29/2024 [...] Dawkins M.D. 12/29/2024 12:41 PM Dictation Location: [place] [address] Electronically authenticated by: [id number] Y Date: 12/29/2024 12:41 Dictated By: Ariel Dawkins M.D. Signed By: 12/29/24 1243 DD/ 1241 TD/TT: Patients Transporter:Troponin I High Sensitivity Reviewed date:12/29/2024 04:52:32 PM Interpretation: Performing Lab: Notes/Report: [facility] ,Troponin I High Mxfsygupaiw66.74.0-51.3 pg/mL CUT-OFF POINTS HAVE BEEN ESTABLISHED BASED [...] AND CLINICAL INFORMATION. Performing Lab:see note - [facility] LBMAGNESIUM Reviewed date:12/30/2024 12:47:51 PM Interpretation: Performing Lab: Notes/Report: [facility] ,Magnesium2.01.8-2.4 mg/dLPerforming Lab:[facility] note[facility] PROF 14(COMP METB) Reviewed date:12/30/2024 12:47:51 PM Interpretation: Performing Lab: Notes/Report: [facility] ,Xgnmzy849867-704 mmol/LPotassium3.53.5-5.1 mmol/YYjhxymej19429-067 mmol/LCarbon Tnvmryj28.921.0-32.0 mmol/LAnion Gap10.1Fwgtjvc5495-864 mg/dLBlood Urea Npykidnr07.07.0-18.0 mg/dLCreatinine1.080.55-1.02 mg/dLEstimated GFR ( Ezkzhkl99>=60 mL/min/1.73m 2Estimated GFR (Non- Ame49>=60 mL/min/1.73m 2 BUN Creatinine Ratio15.8Vvyewcc0.68.5-10.1 mg/dLBilirubin Total0.50.2-1.0 mg/dL Aspartate Amino Cqpimsuorft8732-94 U/LAlanine Xxaljuxfmoivaaii3360-81 U/L Alkaline Ergorrfxvuc29263-840 U/LTotal Protein5.26.4-8.2 g/dLAlbumin Level2.5 3.4-5.0 g/dLGlobulin2.7Albumin Globulin Ratio0.9Performing Lab:[facility] LBTSH Reviewed date:12/30/2024 12:47:51 PM Interpretation: Performing Lab: Notes/Report: [facility] ,Thyroid Stimulating Hormone1.9940.358-3.740 uIU/mLPerforming Lab:see noteML - [facility] LBECG 12 lead Reviewed date:12/30/2024 12:47:51 PM Interpretation: Performing Lab: Notes/Report: Source Facility: [facility]-[address] [place] [address] [place] [address] Electrocardiograph Report Signed Patient: ZACHARY MAYNARD MR#: [id number] : 1945 Acct:[id number] Age/Sex: 79 / F ADM Date: 12/29/24 Loc: MS 230-[address]: Nena Barron M.D. Ordering Physician: Nena Barron M.D. 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 Measurements Intervals [place] Rate: 60 P: -72 WI: 131 QRS: 0 QRSD: 93 T: 39 QT: 359 QTc: 359 Interpretive Statements NORMAL SINUS RHYTHM SINUS ARRHYTHMIA NONSPECIFIC ST T-WAVE ABNORMALITY ABNORMAL ECG Compared to ECG 12/29/2024 11:57:11 ST T-wave abnormality now present Ectopic atrial rhythm no longer present Electronically Signed On 12-30-2024 7:25:53 EST by SCHUYLER ROBLERO M.D. Dictated By: SCHUYLER ROBLERO Signed By: 12/30/24 07 DD/ 7 TD/TT: Patients Transporter:PROF NATIVIDAD Youssef ([facility]) Reviewed date:12/31/2024 04:07:24 PM Interpretation: Performing Lab: Notes/Report: [facility] ,Cksduh783386-133 mmol/LPotassium3.53.5-5.1 mmol/ASasqxtia37283-259 mmol/LCarbon Johynxa60.321.0-32.0 mmol/LAnion Gap11.0Mbapzeh4961-952 mg/dLBlood Urea Lmuvjdxi08.07.0-18.0 mg/dLCreatinine1.210.55-1.02 mg/dLEstimated GFR ( Ciwvffl95>=60 mL/min/1.73m 2Estimated GFR (Non- Ame43>=60 mL/min/1.73m 2 BUN Creatinine Ratio15.1Mgtldfh6.68.5-10.1 mg/dLPerforming Lab:see noteML - [facility] LBCBC no Diff (Hemogram) Reviewed date:12/31/2024 04:07:24 PM Interpretation: Performing Lab: Notes/Report: [facility] ,White Blood Count5.54.0-11.0 10 3/uLRed Blood Count3.414.20-5.40 10 6/uL Dofvvecxsm57.212.0-16.0 g/fSYexntiqfzm12.536.0-48.0 %Mean Corpuscular Vhbywl55.3 81.0-99.0 fLMean Corpuscular Wgfotlttwh00.926.7-34.0 pgMean Corpuscular HGB Conc 31.429.9-35.2 g/dLRed Cell Distribution Width14.811.0-15.0 %Platelet Ozuys574 150-450 10 3/uLMean Platelet Spyrtm75.49.5-13.5 fLPerforming Lab:see noteML - [facility] LBPROF CHEM 8 (BAS METB) (Not yet reviewed by provider) Interpretation: Performing Lab: Notes/Report: [facility] ,Sdtzlk819989-787 mmol/LPotassium3.73.5-5.1 mmol/BSovkgrls69883-800 mmol/LCarbon Vpkdspv43.521.0-32.0 mmol/LAnion Gap11.4Bmuyafv7248-404 mg/dLBlood Urea Ltfnesbn13.07.0-18.0 mg/dLCreatinine1.520.55-1.02 mg/dLEstimated GFR ( Rnnxtbf07>=60 mL/min/1.73m 2Estimated GFR (Non- Ame33>=60 mL/min/1.73m 2 BUN Creatinine Ratio14.6Rlzlxys6.18.5-10.1 mg/dLPerforming Lab:see note - [facility] LBCBC no Diff (Hemogram) Reviewed date:12/30/2024 12:47:51 PM Interpretation: Performing Lab: Notes/Report: [facility] ,White Blood Count5.84.0-11.0 10 3/uLRed Blood Count3.414.20-5.40 10 6/uL Hemoglobin9.912.0-16.0 g/mTPnsfdumftx26.036.0-48.0 %Mean Corpuscular Hgkffg99.8 81.0-99.0 fLMean Corpuscular Gunmcyllau91.026.7-34.0 pgMean Corpuscular HGB Conc 30.929.9-35.2 g/dLRed Cell Distribution Width14.611.0-15.0 %Platelet Avnto826 150-450 10 3/uLMean Platelet Yybmna42.49.5-13.5 fLPerforming Lab:see note - [facility] LBXR chest 1V Reviewed date:12/29/2024 04:52:32 PM Interpretation: Performing Lab: Notes/Report: Source Facility: [place] [address] XRay Report Signed Patient: ZACHARY MAYNARD MR#: [id number] : 1945 Acct:[id number] Age/Sex: 79 / F ADM Date: 12/29/24 Loc: ER Attending Dr: Ordering Physician: Jaclyn Estrada Date of Service: 12/29/24 Procedure(s): XR chest 1V Accession Number(s): [id number] cc: Adina Langley M.D.; Jaclyn Estrada [place] [address] Patient Name: ZACHARY MAYNARD MRN: [facility]:[id number] date: 1945 Sex: F Assigned Patient Location: ER Current Patient Location: ED.MAIN Accession/Order Number: [id number] Exam Date: 12/29/2024 12:22 Report Date: 12/29/2024 12:37 At the request of: JACLYN ESTRADA MD Procedure: XR chest 1V PA CHEST: CLINICAL HISTORY: sob COMPARISON: CT chest 12/17/2024 Mildly enlarged cardiomediastinal silhouette. Lungs clear. No effusion or pneumothorax. Aortic knob calcification. XR/XR chest 1V IMPRESSION: NEGATIVE ACUTE PLEURAL-PARENCHYMAL DISEASE. Impression dictated by: Ariel Dawkins M.D. 12/29/2024 12:37 PM Dictation Location: [place] [address] Electronically authenticated by: [id number] Y Date: 12/29/2024 12:37 Dictated By: Ariel Dawkins M.D. Signed By: 12/29/24 1240 DD/ 1237 TD/TT: Patients Transporter:Troponin I High Sensitivity Reviewed date:12/29/2024 04:52:32 PM Interpretation: Performing Lab: Notes/Report: [facility] ,Troponin I High Nelolkuqdgx71.54.0-51.3 pg/mL CUT-OFF POINTS HAVE BEEN ESTABLISHED BASED [...] CLINICAL INFORMATION. Performing Lab:see noteML - [facility] LBPROF 14(COMP METB) Reviewed date:12/29/2024 04:52:32 PM Interpretation: Performing Lab: Notes/Report: [facility] ,Mbaejf772794-831 mmol/LPotassium3.63.5-5.1 mmol/SRqnahixx11452-804 mmol/LCarbon Alifqqo07.721.0-32.0 mmol/LAnion Gap10.0Vqwxqzu15438-293 mg/dLBlood Urea Jkrshhtd62.07.0-18.0 mg/dLCreatinine1.230.55-1.02 mg/dLEstimated GFR ( Wonawqp82>=60 mL/min/1.73m 2Estimated GFR (Non- Ame42>=60 mL/min/1.73m 2 BUN Creatinine Ratio14.5Dwwaelg2.68.5-10.1 mg/dLBilirubin Total0.40.2-1.0 mg/dL Aspartate Amino Mptxjytcrsx2940-67 U/LAlanine Nofpdjjohffreiuz4353-99 U/L Alkaline Pinigjrxoji90613-575 U/LTotal Protein5.96.4-8.2 g/dLAlbumin Level2.8 3.4-5.0 g/dLGlobulin3.1Albumin Globulin Ratio0.9Performing Lab:see noteML - [facility] LBCT cervical spine wo con Reviewed date:12/17/2024 03:32:32 PM Interpretation: Performing Lab: Notes/Report: Source Facility: [facility]-[address] [place] [address] CT Scan Report Signed Patient: ZACHARY MAYNARD MR#: [id number] : 1945 Acct:[id number] Age/Sex: 79 / F ADM Date: 12/17/24 Loc: ER Attending Dr: Ordering Physician: Mago Foreman Date of Service: 12/17/24 Procedure(s): CT cervical spine wo con Accession Number(s): [id number] cc: Adina Langley M.D. [place] [address] Patient Name: ZACHARY MAYNARD MRN: [id number]:[id number] date: 1945 Sex: F Assigned Patient Location: ER Current Patient Location: ER Accession/Order Number: [id number] Exam Date: 12/17/2024 12:25 Report Date: 12/17/2024 [...] Bonds M.D. 12/17/2024 1:10 PM Dictation Location: [place] [address] Electronically authenticated by: [id number] Y Date: 12/17/2024 13:10 Dictated By: Xavier Bonds M.D. Signed By: 12/17/24 1313 DD/ 1310 TD/TT: Patients Transporter:CT head/brain wo con Reviewed date:12/17/2024 03:32:32 PM Interpretation: Performing Lab: Notes/Report: Source Facility: [place] [address] [address] [address] Scan Report Signed Patient: ZACHARY MAYNARD MR#: [id number] : 1945 Acct:[id number] Age/Sex: 79 / F ADM Date: 12/17/24 Loc: ER Attending Dr: Ordering Physician: Mago Foreman Date of Service: 12/17/24 Procedure(s): CT head/brain wo con Accession Number(s): [id number] cc: Adina Langley M.D. [place] [address] Patient Name: ZACHARY MAYNARD MRN: [facility]:[id number] date: 1945 Sex: F Assigned Patient Location: ED.MAIN Current Patient Location: ER Accession/Order Number: [id number] Exam Date: 12/17/2024 12:25 Report Date: 12/17/2024 [...] Bonds M.D. 12/17/2024 1:10 PM Dictation Location: [place] [address] Electronically authenticated by: [id number] Y Date: 12/17/2024 13:10 Dictated By: Xavier Bonds M.D. Signed By: 12/17/24 1312 DD/ 1310 TD/TT: Patients Transporter:CT CHEST W CON Reviewed date:12/17/2024 03:32:32 PM Interpretation: Performing Lab: Notes/Report: Source Facility: [place] [address] CT Scan Report Signed Patient: ZACHARY MAYNARD MR#: [id number] : 1945 Acct:[id number] Age/Sex: 79 / F ADM Date: 12/17/24 Loc: ER Attending Dr: Ordering Physician: Mago Foreman Date of Service: 12/17/24 Procedure(s): CT chest w con Accession Number(s): [id number] cc: Adina Langley M.D. [place] [address] Patient Name: ZACHARY MAYNARD MRN: [id number] date: 1945 Sex: F Assigned Patient Location: ED.MAIN Current Patient Location: Accession/Order Number: [id number] Exam Date: 12/17/2024 12:25 Report Date: 12/17/2024 [...] Bonds M.D. 12/17/2024 1:26 PM Dictation Location: [place] [address] Electronically authenticated by: [id number] Y Date: 12/17/2024 13:26 Dictated By: Xavier Bonds M.D. Signed By: 12/17/24 1329 DD/ 1326 TD/TT: Patients Transporter:Troponin I High Sensitivity Reviewed date:12/17/2024 03:32:32 PM Interpretation: Performing Lab: Notes/Report: [facility] ,Troponin I High Ecbzfeocmpn94.14.0-51.3 pg/mL CUT-OFF POINTS HAVE BEEN ESTABLISHED BASED [...] AND CLINICAL INFORMATION. Performing Lab:see note - [facility] LBProthrombin Time INR Reviewed date:12/17/2024 03:32:32 PM Interpretation: Performing Lab: Notes/Report: [facility] ,Prothrombin Time11.39.0-11.6 secINR1.07 DESIRED INR: 2.0-3.0 CONDITIONS NOT LISTED BELOW 2.5-3.5 FOR PROSTHETIC HEART VALVE REPLACEMENT 2.5-3.5 RECURRENT THROMBOSIS Performing Lab:see noteML - [facility] LBPTT Reviewed date:12/17/2024 03:32:32 PM Interpretation: Performing Lab: Notes/Report: [facility] ,Partial Thromboplastin Time28.022.3-36.2 secPerforming Lab:see note - [facility] LBPROF 14(COMP METB) Reviewed date:12/17/2024 03:32:32 PM Interpretation: Performing Lab: Notes/Report: [facility] ,Mwqkpo642014-339 mmol/LPotassium3.93.5-5.1 mmol/HFaauikrw23459-267 mmol/LCarbon Eaimeei98.621.0-32.0 mmol/LAnion Gap15.2Rupfqna91103-726 mg/dLBlood Urea Tcwlfcaj54.07.0-18.0 mg/dLCreatinine1.290.55-1.02 mg/dLEstimated GFR ( Aclkrni38>=60 mL/min/1.73m 2Estimated GFR (Non- Ame40>=60 mL/min/1.73m 2 BUN Creatinine Ratio20.8Srgrkbc4.48.5-10.1 mg/dLBilirubin Total0.30.2-1.0 mg/dL Aspartate Amino Ldvcemmsnic6185-47 U/LAlanine Pucwgtrvdtgoutty1046-34 U/L Alkaline Ohwglaqauuw45864-951 U/LTotal Protein6.56.4-8.2 g/dLAlbumin Level3.5 3.4-5.0 g/dLGlobulin3.0Albumin Globulin Ratio1.2Performing Lab:see noteML - [facility] LBCBC AUTO DIFF Reviewed date:12/17/2024 03:32:32 PM Interpretation: Performing Lab: Notes/Report: [facility] ,White Blood Count10.64.0-11.0 10 3/uLRed Blood Count4.194.20-5.40 10 6/uL Mcivxdyhqb13.712.0-16.0 g/iEQkhowqdabe84.836.0-48.0 %Mean Corpuscular Couavk11.0 81.0-99.0 fLMean Corpuscular Rcigeqesoy51.326.7-34.0 pgMean Corpuscular HGB Conc 31.929.9-35.2 g/dLRed Cell Distribution Width13.811.0-15.0 %Platelet Bvokt616 150-450 10 3/uLMean Platelet Sswblq69.29.5-13.5 fLNeutrophils Percent Auto84.2 43.0-75.0 %Lymphocytes Percent Auto9.120.5-60.0 %Monocytes Percent Auto5.11.7- 12.0 %Eosinophils Percent Auto0.00.9-7.0 %Basophils Percent Auto0.10.2-2.0 % Immature Granulocytes Pct Auto1.50.0-0.5 %Neutrophils Absolute Auto9.01.4-6.5 10 3/uLLymphocytes Absolute Auto1.01.2-3.8 10 3/uLMonocytes Absolute Auto0.50.3- 0.8 10 3/uLEosinophils Absolute Auto0.00.0-0.7 10 3/uLBasophils Absolute Auto0.0 0.0-0.1 10 3/uLImmature Granulocytes Abs Auto0.160.00-0.03 10 3/uLPerforming Lab:see noteML - [facility] LBUS right upper quadrant Reviewed date:09/09/2024 05:20:20 PM Interpretation: Performing Lab: Notes/Report: Source Facility: [place] [address] [place] [address] Ultrasound Report Signed Patient: ZACHARY MAYNARD MR#: [id number] : 1945 Acct:[id number] Age/Sex: 79 / F ADM Date: 09/09/24 Loc: US Attending Dr: Adina Langley M.D. Ordering Physician: Adina Langley M.D. Date of Service: 09/09/24 Procedure(s): US right upper quadrant Accession Number(s): [id number] cc: Adina Langley M.D. [place] [address] Patient Name: ZACHARY MAYNARD MRN: [id number]:[id number] date: 1945 Sex: F Assigned Patient Location: US Current Patient Location: US Accession/Order Number: [id number] Exam Date: 09/09/2024 11:28 Report Date: 09/09/2024 [...] Arizmendi M.D. 09/09/2024 11:31 AM Dictation Location: [place] [address] Electronically authenticated by: [id number] Y Date: 09/09/2024 11:31 Dictated By: Sammie Arizmendi M.D. Signed By: 09/09/24 1134 DD/ 1131 TD/TT: Patients Transporter:PROF NATIVIDAD Youssef ([facility]) Reviewed date:08/23/2024 09:16:19 PM Interpretation: Performing Lab: Notes/Report: [facility] ,[id number] mmol/LPotassium4.23.5-5.1 mmol/CTwovvzrs12939-682 mmol/LCarbon Nzwrjwr75.721.0-32.0 mmol/LAnion Gap11.2Kernknu73386-014 mg/dLBlood Urea Vmymvrwi95.07.0-18.0 mg/dLCreatinine1.250.55-1.02 mg/dLEstimated GFR ( Fxqhdjf72>=60 mL/min/1.73m 2Estimated GFR (Non- Ame41>=60 mL/min/1.73m 2 BUN Creatinine Ratio32.7Irimqyi7.38.5-10.1 mg/dLPerforming Lab:see noteML - [facility] LBHEMOGLOBIN Reviewed date:08/23/2024 09:16:19 PM Interpretation: Performing Lab: Notes/Report: [facility] ,Punrnmaygd80.612.0-16.0 g/dLPerforming Lab:see noteML - [facility] LBUA RANDOM W or MICROSCOPIC Reviewed date:08/18/2024 09:07:26 PM Interpretation: Performing Lab: Notes/Report: [facility] ,Color UrineLT. YELLOWYELLOWClarity UrineCLEARCLEARSpecific Uriah Urine1.015 1.005-1.025pH Urine5.55.0-9.0Protein UrineNEGATIVENEG/TRACE mg/dLGlucose Urine UANEGATIVENEGATIVE mg/dLBilirubin UrineNEGATIVENEGATIVEKetones UrineNEGATIVE NEGATIVE mg/dLBlood UrineNEGATIVENEGATIVENitrite UrineNEGATIVENEGATIVE Urobilinogen Urine0.20.2-1.0 EU/dLLeukocyte Esterase UrineNEGATIVENEGATIVEWBC UrineNONE SEENNONE SEEN #/HPFRBC UrineNONE SEEN0-2 #/HPFBacteria UrineTRACENONE SEEN #/HPFMucus UrineNONE SEENNONE SEENSquamous Epithelial Cell UrineRARE NONE/RARE #/LPFCrystals Seen?None SeenNone Seen #/HPFCast Seen?NONE SEENNONE SEEN #/LPFPerforming Lab:see noteML - [facility] LBPROTEIN RAND URINE Reviewed date:08/18/2024 09:07:26 PM Interpretation: Performing Lab: Notes/Report: [facility] ,Total Protein Urine Evtiyb93.1<=11.9 mg/dLPerforming Lab:see noteML - [facility] LBXR chest 2V Reviewed date:08/16/2024 06:39:10 PM Interpretation: Performing Lab: Notes/Report: Source Facility: [place] [address] [place] [address] XRay Report Signed Patient: ZACHARY MAYNARD MR#: [id number] : 1945 Acct:[id number] Age/Sex: 79 / F ADM Date: 08/16/24 Loc: LAB Attending Dr: Adina Langley M.D. Ordering Physician: Adina Langley M.D. Date of Service: 08/16/24 Procedure(s): XR chest 2V Accession Number(s): [id number] cc: Adina Langley M.D. [place] [id number] Patient Name: ZACHARY MAYNARD MRN: [id number] date: 1945 Sex: F Assigned Patient Location: LAB Current Patient Location: LAB Accession/Order Number: [id number] Exam Date: 08/16/2024 16:24 Report Date: 08/16/2024 [...] Bonds M.D. 08/16/2024 4:27 PM Dictation Location: [place] [address] Electronically authenticated by: [id number] Y Date: 08/16/2024 16:27 Dictated By: Xavier Bonds M.D. Signed By: 08/16/24 1629 DD/ 1627 TD/TT: Patients Transporter:TSH Reviewed date:08/16/2024 07:19:28 PM Interpretation: Performing Lab: Notes/Report: [facility] ,Thyroid Stimulating Hormone4.4180.358-3.740 uIU/mLPerforming Lab:see noteML - [facility] LBT4 Reviewed date:08/16/2024 07:19:28 PM Interpretation: Performing Lab: Notes/Report: [facility] ,T4 Msozaasfi74.304.80-13.90 ug/dLPerforming Lab:see noteML - [facility] LBFREE T3 Reviewed date:08/16/2024 07:19:28 PM Interpretation: Performing Lab: Notes/Report: [facility] ,Free T31.702.18-3.98 pg/mLPerforming Lab:see noteML - [facility] LB RT pulmonary function test Reviewed date:07/05/2024 08:47:56 PM Interpretation: Performing Lab: Notes/Report: Source Facility: [facility]-[address] [place] [address] [place] [address] Respiratory Report Signed Patient: ZACHARY MAYNARD MR#: [id number] : 1945 Acct:[id number] Age/Sex: 79 / F ADM Date: 06/30/24 Loc: CARD Attending Dr: Dipti Fulton M.D. Ordering Physician: Dipti Fulton M.D. 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 Findings were considered accurate and reproducible with exception of panting maneuvers. Both pre- and post-bronchodilator values utilized for spirometry. Spirometry (based on pre-bronchodilator values): -FEV1/FVC: Reduced @ 58% -FEV1: Normal @ 119% -FVC: Supra-normal @ 149% -XDH29-00%: Reduced @ 67% -There is a partial [...] 07/05/24 1601 07/05/24 1601 DD/ 1247 TD/TT: Patients Transporter:PROF NATIVIDAD Youssef ([facility]) Reviewed date:02/16/2024 07:54:36 PM Interpretation: Performing Lab: Notes/Report: [facility] ,Pblidy568444-988 mmol/LPotassium4.93.5-5.1 mmol/KPgsgpfrs62251-586 mmol/LCarbon Fxcpeli61.021.0-32.0 mmol/LAnion Gap12.1Cmkdiho48711-197 mg/dLBlood Urea Lxzfyjru94.07.0-18.0 mg/dLCreatinine1.780.55-1.02 mg/dLEstimated GFR ( Njiphng49>=60 mL/min/1.73m 2Estimated GFR (Non- Ame27>=60 mL/min/1.73m 2 BUN Creatinine Ratio11.7Jrhfrnm7.28.5-10.1 mg/dLPerforming Lab:see noteML - [facility] LBUS abdominal aortic aneurysm Reviewed date:01/06/2024 06:36:05 PM Interpretation: Performing Lab: Notes/Report: Source Facility: [facility]-[address] [place] [address] [place] [address] Ultrasound Report Signed Patient: ZACHARY MAYNARD MR#: [id number] : 1945 Acct:[id number] Age/Sex: 78 / F ADM Date: 01/06/24 Loc: US Attending Dr: Dipti Fulton M.D. Ordering Physician: Dipti Fulton M.D. Date of Service: 01/06/24 Procedure(s): US abdominal aortic aneurysm Accession Number(s): [id number] cc: Adina Langley M.D.; Dipti Fulton M.D. [place] [address] Patient Name: ZACHARY MAYNARD MRN: [id number] date: 1945 Sex: F Assigned Patient Location: US Current Patient Location: US Accession/Order Number: [id number] Exam Date: 01/06/2024 08:00 Report Date: 01/06/2024 12:53 At the request of: DIPTI BARTHOLOMEWOURY Procedure: US abdominal aortic aneurysm EXAM: US [...] Signed By: 01/06/24 1256 DD/ 1253 TD/TT: Patients Transporter:CBC AUTO DIFF Reviewed date:08/16/2024 06:39:10 PM Interpretation: Performing Lab: Notes/Report: [facility] ,White Blood Count7.34.0-11.0 10 3/uLRed Blood Count3.874.20-5.40 10 6/uL Cgsckzpvxw89.412.0-16.0 g/bSHxpgzteuuf03.836.0-48.0 %Mean Corpuscular Ucobcv98.5 81.0-99.0 fLMean Corpuscular Cixhvhyrgk05.526.7-34.0 pgMean Corpuscular HGB Conc 31.829.9-35.2 g/dLRed Cell Distribution Width16.911.0-15.0 %Platelet Gsbfa714 150-450 10 3/uLMean Platelet Qbvxvc87.69.5-13.5 fLNeutrophils Percent Auto64.5 43.0-75.0 %Lymphocytes Percent Auto23.820.5-60.0 %Monocytes Percent Auto7.81.7- 12.0 %Eosinophils Percent Auto3.10.9-7.0 %Basophils Percent Auto0.30.2-2.0 % Immature Granulocytes Pct Auto0.50.0-0.5 %Neutrophils Absolute Auto4.71.4-6.5 10 3/uLLymphocytes Absolute Auto1.71.2-3.8 10 3/uLMonocytes Absolute Auto0.60.3- 0.8 10 3/uLEosinophils Absolute Auto0.20.0-0.7 10 3/uLBasophils Absolute Auto0.0 0.0-0.1 10 3/uLImmature Granulocytes Abs Auto0.040.00-0.03 10 3/uLPerforming Lab:see noteML - [facility] LBBNP Reviewed date:08/16/2024 07:19:28 PM Interpretation: Performing Lab: Notes/Report: [facility] ,NT Pro B Type Natriuretic Gnhn2650.0<=1800.0 pg/mLRESULTS CALLED TO DR. LANGLEY Performing Lab:see noteML - [facility] LBUA DIP NONAUTO WO MICRO (66834) - IN OFFICE Reviewed date:07/27/2024 04:20:30 PM Interpretation: Performing Lab: Notes/Report: COLORyellowCLARITYclearGLUCOSEnBILIRUBINnKETONEnSPECIFIC GRAVITY1.836PWKWXqJE1 PROTEINtraceUROBILINOGENnNITRITEnLEUKOCYTE ESTERASE++ Reason For Referral Diagnosis 1 Weakness (R53.1) Referral Organization [facility] Medicine Referring Provider First Name Enio Referring Provider Last Name Korin Referring Provider Speciality Family Med icine Referred Provider TB, Physical Therap y Referred Provider Specialty Physical [...] using the HandiHaler device Inhalation Once a nkcALJ755ActiveFerrous Sulfate 325 (65 Fe) MG1 tablet Orally BID5ActiveLiothyronine Sodium 5 MCGTAKE 2 TABLETS ON AN EMPTY STOMACH ORALLY ONCE A DAY 30 DAYS; Duration: 90 daysActive Meclizine HCl 25 MGTAKE 1-2 TABLETS BY MOUTH THREE TIMES A DAY NEEDED.; Duration: 15ActiveMemantine HCl ER 21 MGTAKE 1 CAPSULE BY MOUTH EVERY DAY; Duration: 90 daysActiveAdbry 300 MG/2MLas directed Kovrcsbdhjoe21/18/2025Active Ondansetron 4 MG1 tablet on the tongue [...] Administration Date Status Comme nts Flu, Fluad (6921-3894) (62745) 65 yrs+, single-dose syringe IM Intramuscular 12/25/2022 Administered Flu, Fluad (30456) 65 yrs and older, single-dose syringe (3253-9080)IM Htkgsxglnclwj31/14/2024AdministeredFlu, Fluad (90984) 65 yrs and older, single- dose syringe (0361-2398)IM Xzwcyskqdnzsh10/22/2025Administered Social History Tobacco Use: Social History Observation Description Date Details (start date - stop date) Former Smoker NA - 02/24/2010 Tobacco Use/Smoking Question Answer Notes Patient is a former smoker When did you stop smoking?02/24/2010lcohol Screen (Audit-C) Question Answer Notes Did you have a drink containing alcohol in the p ast year? No Fdtavp7FaykvtsfxzswwwHypixsmmEGGLI-N (Standard) Question Answer Notes Did you have a drink containing alcohol in the p ast year? No Awbyfs5MavmjrnaohckmsMmjabsnw Problems Problem Type SNOMED Code ICD Code Onset Dates Problem Status W/U Status Risk Notes Problem Essential hypertension (01390892 ) Essential (primary) hypertension (I10) ActiveconfirmedProblemSyncope and collapse (285019770)Syncope and collapse (R55) ActiveconfirmedProblemTinea corporis (36432421)Tinea corporis (B35.4)Active confirmedProblemBenign neoplasm of meninges (372443768)Benign neoplasm of meninges, unspecified (D32.9)ActiveconfirmedProblemDiabetic peripheral neuropathy associated with type 2 diabetes mellitus (4952383720161)Type 2 diabetes mellitus with diabetic neuropathy, unspecified (E11.40)Activeconfirmed ProblemDrug-induced myopathy (651344362)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)Active confirmedProblemBlepharochalasis (09113848)Blepharochalasis unspecified eye, 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)ActiveconfirmedProblemVentricular fibrillation (79288373)Ventricular fibrillation (I49.01)ActiveconfirmedProblemUncomplicated asthma (disorder) (445264377)Unspecified asthma, uncomplicated (J45.909)Active confirmedProblemDiverticula of intestine (56657171)Diverticulosis of intestine, part unspecified, without perforation or abscess without bleeding (K57.90)Active confirmedProblemConstipation (72046839)Constipation, unspecified (K59.00)Active confirmedProblemVesicular eczema (disorder) (188000615)Dyshidrosis [pompholyx] (L30.1)ActiveconfirmedProblemPain of right shoulder region (finding) (6886995416)Pain in right shoulder (M25.511)ActiveconfirmedProblemPolymyalgia rheumatica (54878393)Polymyalgia rheumatica (M35.3)ActiveconfirmedProblemMuscle weakness (38351383)Muscle weakness (generalized) (M62.81)ActiveconfirmedProblem Fibromyalgia (192098727)Fibromyalgia (M79.7)ActiveconfirmedProblemDisorder of bone (77693150)Other specified disorders of bone density and structure, unspecified site (M85.80)ActiveconfirmedProblemArteriovenous malformation (13067896)Arteriovenous malformation, site unspecified (Q27.30)Activeconfirmed ProblemSpasm (25523876)Cramp and spasm (R25.2)ActiveconfirmedProblemFrequency of micturition (898112373)Frequency of micturition (R35.0)ActiveconfirmedProblem Localized edema (9174060)Localized edema (R60.0)ActiveconfirmedProblemOther injury of muscle, fascia and tendon of lower back, initial encounter (S39.092A) ActiveconfirmedProblemPostmenopausal state (74992716)Asymptomatic menopausal state (Z78.0)ActiveconfirmedProblemAtrial fibrillation (16603541)Atrial fibrillation (I48.91)ActiveconfirmedProblemOsteoarthritis (654986771) Osteoarthritis (M19.90)ActiveconfirmedProblemAsthma (549884554)Asthma (J45.909) ActiveconfirmedProblemGastroesophageal reflux disease (249358002)GERD (gastroesophageal reflux disease) (K21.9)ActiveconfirmedProblemAtrial fibrillation (disorder) (73827607)Afib (I48.91)ActiveconfirmedProblemHypothyroid (63700766)Hypothyroid (E03.9)ActiveconfirmedProblemArteriovenous malformation (75996889)Arterio-venous malformation (Q27.30)ActiveconfirmedProblemOsteopenia (690420749)Osteopenia (M85.80)ActiveconfirmedProblemDyspnea (438508278)Dyspnea (R06.00)ActiveconfirmedProblemVertigo (185828335)Vertigo (R42)Activeconfirmed ProblemEczema (17751976)Eczema (L30.9)ActiveconfirmedProblemSinus tachycardia (07647630)Sinus tachycardia (R00.0)ActiveconfirmedProblemPain of right knee region (finding) (769160125361634)Knee pain, right (M25.561)Activeconfirmed ProblemEdema (005751046)Edema leg (R60.0)ActiveconfirmedProblemAcute bronchitis (21413305)Acute bronchitis (J20.9)ActiveconfirmedProblemVaricose veins (535912685)Varicose veins (I86.8)ActiveconfirmedProblemHypoglycemia (607467714) Hypoglycemia (E16.2)ActiveconfirmedProblemDiverticulitis (98790388) Diverticulitis (K57.92)ActiveconfirmedProblemPlantar fasciitis (994145741) Plantar fasciitis (M72.2)ActiveconfirmedProblemBenign neoplasm of cerebral meninges (36472690)Meningioma (D32.9)ActiveconfirmedProblemNear syncope (726131974)Near syncope (R55)ActiveconfirmedProblemGallstones (811194167) Gallstones (K80.20)ActiveconfirmedProblemRight upper quadrant pain (209900015) Right upper quadrant abdominal pain (R10.11)ActiveconfirmedProblem Gastroenteritis (41248449)Gastroenteritis (K52.9)ActiveconfirmedProblemEasy bruising (867287854)Easy bruisability (R23.8)ActiveconfirmedProblemOverweight (019676371)Over weight (E66.3)ActiveconfirmedProblemDyshidrotic eczema (682168078)Dyshidrotic eczema (L30.1)ActiveconfirmedProblemNevus (7423083669) Nevus (D22.9)ActiveconfirmedProblemCervical strain (274312090)Cervical strain (S16.1XXA)ActiveconfirmedProblemDiverticular disease (801928514)Diverticular disease (K57.90)ActiveconfirmedProblemAcute bronchiolitis (7690725)Acute bronchiolitis (J21.9)ActiveconfirmedProblemCramp in lower limb (280327386)Leg cramp (R25.2)ActiveconfirmedProblemPruritic disorders (158555536)Pruritic condition (L29.9)ActiveconfirmedProblemChronic obstructive pulmonary disease (29865351)Advanced COPD (J44.9)ActiveconfirmedProblemAcute cystitis (24576766) Acute cystitis (N30.00)ActiveconfirmedProblemAcute urinary tract infection (578440807)Acute UTI (N39.0)ActiveconfirmedProblemDiabetic peripheral neuropathy associated with type 2 diabetes mellitus (0624063301623)Neuropathy, diabetic (E11.40)ActiveconfirmedProblemDementia (63737863)Advanced dementia (F03.90) ActiveconfirmedProblemAt risk for falls (909759437)At risk for falls (Z91.81) ActiveconfirmedProblemBenign mammary dysplasia (00701501)Benign mammary dysplasia (N60.99)ActiveconfirmedProblemAcute heart failure (38741158)Acute heart failure (I50.9)ActiveconfirmedProblemEssential hypertension (28220836)BP (high blood pressure) (I10)ActiveconfirmedProblemPure hypercholesterolemia (582074616)Pure hypercholesterolemia, unspecified (E78.00)ActiveconfirmedProblem Type II diabetes mellitus without complication (436451595)Diabetes (E11.9)Active confirmedProblemDiabetes mellitus (73200069)Diabetes mellitus (E11.9)Active confirmedProblemChronic kidney disease stage 3A (disorder) (424650822)Chronic kidney disease, stage 3a (N18.31)ActiveconfirmedProblemLow back pain (754749170) Low back pain, unspecified (M54.50)Activeconfirmed Vital Signs Heart Rate 51 /min 12/15/2024 Bqmqgjjwbpk51.2 degrees Yqfsngzsaj14/31/6018Uruodmax14 %12/15/2024lood pressure dagjiukym79 mm Hg12/20/20248584Nbxxbe40 in12/20/2024lood pressure hxaukybb066 mm Hg12/20/20242425Qpjyzv989.8 lbs1MI30.25 kg/m212/20/2024 Procedures Procedure Date Ordered Date Performed Result Body Sit e Holter Monitor - 3 days up to 14 days 12/20/2024 N/A*CARDIO Stress Test - Lexiscan Kkieacn5612/20/2024N/ZHsunbwocqphhzo26/23/2025 N/A Encounters Encounter Location Date Provider Diagnosis [facility] [address] [place] [address] 12/31/2024 Enio Langley [facility] [place] [address] 01/14/2024oug [facility] [place] [address]/oug [facility] [place] [address]/oug [facility] [place] [address]/oug [facility] [place] [address]/Doug [facility] [place] [address]/ Enio [facility] [place] [address]/Doug [facility] [place] [address]/04/2024Doug [facility] [place] [address]/06/2024Doug HoyLeft arm pain M79.602 [facility] [place] [address] 04/01/2024Doug HoyLeft wrist pain M25.532[facility] [place] [address]/08/2024Doug [facility] [place] [address]/Doug [facility] [place] [address]/05/2024 Enio HoyAcute bronchiolitis J21.9[facility] [place] [address]/Doug [facility] [address] [place] [address]/01/2025Doug [facility] [place] [facility] [place] [address]/01/2025[facility] [place] [address]/ Enio HoyHypothyroid E03.9 ; Acute heart failure I50.9 and SOB (shortness of breath) R06.02[facility] [place] [address]/Doug [facility] [place] [address]/Doug [facility] [place] [address]/Doug [facility] [facility] [place] [address]/Doug HoyGallstones K80.20[facility] [place] [address]/Doug [facility] [place] [address]/03/2024Doug [facility] [place] [address]/Doug [facility] [place] [address]/Doug HoyAcute non- recurrent sinusitis, unspecified location J01.90[facility] [address] [place] [address]/06/2024Doug [facility] [place] [address]/06/2024Doug [facility] [place] [address] 12/20/2024Doug HoyNear syncope [facility]60[facility] [place] [address]/[facility] [address] [place] [address]/22/2025Doug HoyAcute non- recurrent sinusitis, unspecified location J01.90 ; Nasal congestion R09.81 and Encounter for immunization W66QlbakrmU[facility] [place] [address]/09/2024Doug HoyAdvanced COPD J44.9 ; Acute heart failure I50.9 ; Ventricular fibrillation I49.01 ; Neuropathy, diabetic E11.40 ; Type 2 diabetes mellitus with diabetic neuropathy, unspecified E11.40 ; Atrial fibrillation I48.91 and Afib I48.91[place] [address] [place] [address]/Doug HoyEssential (primary) hypertension T22VgnmnetUchealth Greeley Hospital[address] [place] [address] 03/26/2024Doug HoyDiverticulitis K57.92[place] [address] [place] [address]/05/2024Doug HoyAcute bronchiolitis J21.9 [place] [place] [address] 07/21/2024Doug HoyBurning with urination R30.0 ; Pain in right shoulder M25.511 and Acute UTI N39.0[place] [place] [address]/Doug HoyUTI (urinary tract infection) N39.0 ; Advanced dementia F03.90 ; Chronic kidney disease, stage 3a N18.31 ; Tinea corporis B35.4 and Dyspnea R06.00[facility] [place] [address]/09/2024Doug HoyRight upper quadrant abdominal pain R10.11 and Weakness R53.1BN[facility] [place] [address]/Doug HoyType 2 diabetes mellitus with diabetic neuropathy, unspecified E11.40 ; Afib I48.91 ; Hypothyroid E03.9 ; Essential (primary) hypertension I10 ; Diabetes E11.9 ; Acute UTI N39.0 and [address]uria R30.[address] [address]/03/2024 Enio Korin Assessments Encounter Date Diagnosis (ICD Code) Assessment Notes Treatment Notes Treatment Clinical Notes Section Notes 03/03/2024 Advanced COPD (ICD-10 - J44.9) 03/08/2024Essential (primary) hypertension (ICD-10 - I10)fatigue an hypotension -near syncope - stiopping vlbyoengm10/31/2025Diverticulitis (ICD-10 - K57.92) 05/28/2024ute bronchiolitis (ICD-10 - J21.9)07/21/2024urning with urination (ICD-10 - R30.0)07/21/2024Pain in right shoulder (ICD-10 - M25.511)08/16/2024UTI (urinary tract infection) (ICD-10 - N39.0)chekcing urine culer and urnifro vyzdjuz6908/16/2024dvanced dementia (ICD-10 - F03.90)memory part pretty stable no argument from dydspjn7908/31/2024Right upper quadrant abdominal pain (ICD-10 - R10.11)08/31/2024Weakness (ICD-10 - R53.1)10/20/2024Type 2 diabetes mellitus with diabetic neuropathy, unspecified (ICD-10 - E11.40)10/20/2024fib (ICD-10 - I48.91)rate zjjqzgyku26/27/2025Near syncope (ICD-10 - R55)03/31/2024Left arm pain (ICD-10 - M79.602)04/01/2024Left wrist pain (ICD-10 - M25.532)05/28/2024 Acute bronchiolitis (ICD-10 - J21.9)08/16/2024Hypothyroid (ICD-10 - E03.9) 08/16/2024ute heart failure (ICD-10 - I50.9)5Acute non-recurrent sinusitis, unspecified location (ICD-10 - J01.90)Rest and drink more liquids, especially water. You may use a humidifier or vaporizer to help keep the drainage moist. Lkcu-qyl-fknufzr Nasal Saline may help the stuffy and runny nose. Use Ibuprofen and or Tylenol as needed for fever, chills, body aches or pain. Children 5 years old should not be given ccuf-atd-yvwvfik cough and cold medications such as guaifenesin and dextromethorphan. If you're over age 5, you may try uisx-cwy-ufobcec cold medications such as guaifenesin and dextromethorphan, [...] N39.0)03/03/2024 Acute heart failure (ICD-10 - I50.9)seein cnjwvdpqaph82/08/2025Ventricular fibrillation (ICD-10 - I49.01)08/16/2024Tinea corporis (ICD-10 - B35.4) /27/2025Essential (primary) hypertension (ICD-10 - I10)up - adjusting meds1Encounter for immunization (ICD-10 - Z23)10/20/2024 Diabetes (ICD-10 - E11.9)pmgkege0503/03/2024Neuropathy, diabetic (ICD-10 - E11.40) 03/03/2024Type 2 diabetes [...] RANDOM URINE PROTEIN 08/16/2024 UA (URINALYSIS), COMPLETE (77184) - IN O FFICE 08/30/2022 GLUCOSE - IN OFFICE FINGERSTICK w/MONITO R 12/04/2023 STOOL OCCULT BLOOD 11/19/2023 BLEEDING TIME 10/25/2022 CBC AUTO DIFF 10/16/2022 CULTURE SPUTUM 11/21/2023 CULTURE URINE 08/16/2024 FERRITIN 10/16/2022 GLYCOHEMOGLOBIN A1C 10/16/2022 IRON 10/16/2022 PROF 14(COMP METB) 10/25/2022 PROF CHEM 8 (BAS METB) 01/01/2025 PROTIME 10/25/2022 PTT 10/25/2022 SPUTUM GRAM STAIN 11/21/2023 THYROID PROFILE WITH TSH 10/16/2022 US ABD 08/31/2024 US VENOUS DOPPLER L ARM 03/31/2024 XR CHEST 2 V 08/16/2024 XR RIBS BIL_PA CH 4V OR GR 09/02/2022 THYROID PANEL (T4/TSH/FREE T3) 5 THYROID PANEL (T4/TSH/FREE T3) 5 THYROID PANEL (T4/TSH/FREE T3) 4 Holter Monitor - 3 days up to 14 days Holter Monitor - 3 days up to 14 days KORY Segmental Pressure Study of Lower Ex tremity 11/25/2023 *CARDIO Stress Test - Lexiscan Nuclear 1 *CARDIO Stress Test - Lexiscan Nuclear 1 NUC MED Hida with Ejection Fraction * HIDA w/EF 09/09/2024 Next Appt Details Provider Name:Enio Langley, 10:30:00 AM, [address] [place], [address], Insurance Providers Payer Name Payer Address Payer Phone Subscriber Number Group Number Insured Name Patient Relationship to Insured Coverage Start Date Coverage End Date [employer] [address] [address] [place], [place] [id number] [phone] [id number] Zachary Maynard Self - patient is the insured [employer] MEDICAREPO [address] [address] [place], [place] [phone] [id number], GrettaSelf - patient is the insured Medications Administered Medication Instructions Date of Administration Dosage Notes Dexamethasone, 4mg/mL 48 mg8 mgDexamethasone, 4mg/mL48 mg8 mgDexamethasone, 4mg/mL mgDexamethasone, 4mg/mL mgKenalog-4004 mg80 mg Kenalog-400 iq500Ftzvpsq-0614/23/202380 ys76Evbkymlco Tromethamine kg44Kurtqxltgfwah 40 mg/ml mg Medical (General) History Medical History History [...] Surgery Breast Cyst removedHysterectomyHospitalization History Reason Date(Month/Year) [facility] 2024 Aorta Patch 01/2024 A-fib 12/17 sepsis 2019
--- OUTSIDE RECORDS SUMMARY | 2025-01-01 15:57 | XMS_ITS | Clinical Summary ---
Author Organization [facility] Address [address], [address] [place] [address] Care Team Providers Care Sliver Machine Operator Name Role Phone Velasquez Langley MD Primary Care Provider [phone] Allergies Active AllergyReactionsCriticalityNoted DateCommentsMoxifloxacinAnaphylaxisHigh 06/27/20170279Iuqupeueanfbl24/04/5547NxuqxkifyiVoutmjkhrizXedp91/04/2018Nalbuphine 06/27/20174128Xkhxxgwshzzj27/04/4160Emcotjy45/04/2018Sulfa Ueyaamivddb35/04/2018 Adhesive Tape06/27/2017 Medications MedicationSigDispense QuantityRefillsLast FilledStart DateEnd [...] tablet 5010/15/2019Active Active Problems ProblemNoted DateDiagnosed DateModerate yepwozaugzso08/21/2020Right renal artery cnfruoop46/19/2020Secondary pqvqquiejywr83/19/1719Vyjlsrwqmct50/19/2020 Overview (10/13/2019): Replacement after MRI Aneurysm of infrarenal abdominal aorta10/09/20191290Qlapyrhpjtp91/05/2018 Hypertensive cgckvln6806/28/20176224Jftionorzigm00/05/2018Acute intractable headache Social History Tobacco UseTypesPacks/DayYears UsedDateSmoking Tobacco: NeverSmokeless Tobacco: NeverAlcohol UseStandard Drinks/WeekCommentsNo0 (1 standard drink = 0.6 oz pure alcohol)CommentsNoSex and Gender InformationValueDate RecordedSex Assigned at BirthNot on fileLegal AcuXivveo76/04/2018 9:20 PM EDTGender Identity Not on fileSexual OrientationNot on file Last Filed Vital Signs Vital SignReadingTime TakenCommentsBlood Zjtmckdn503/64010/16/2019 3:45 PM EDT Mfgsf420110/16/2019 8:25 AM SNCJkxrudgydaq46.7 ??C (98 ??F)10/16/2019 8:25 AM EDT Respiratory Bwzd303610/16/2019 8:25 AM EDTOxygen Cxfijhkydk83%10/16/2019 8:25 AM EDTInhaled Oxygen Concentration--Yhxlud64.4 kg (148 lb 9.4 oz)10/16/2019 6:15 AM RLCKvcggj908.6 cm (5' 4 )10/15/2019 3:22 PM EDTBody [...] MemberRelationshipSpecialtyStart DateEnd Date Velasquez Langley MD [address] [place] [address] PCP - GeneralFamily Medicine06/27/17
--- OUTSIDE RECORDS SUMMARY | 2025-01-01 15:57 | XMS_ITS | Clinical Summary ---
Author Organization [facility] Address [address] [place] [address] Care Team Providers Care Equipment Validation Engineer Name Role Phone Unavailable Primary Care Provider Unavailabl e Social History Tobacco UseTypesPacks/DayYears UsedDateSmoking Tobacco: Never Assessed CommentsUnknownSex and Gender InformationValueDate RecordedSex Assigned at Not on fileLegal CnoHtncrt14/02/2012 9:24 AM ESTGender IdentityNot on fileSexual OrientationNot on file Plan of Treatment Not on file
--- OUTSIDE RECORDS SUMMARY | 2025-01-01 15:57 | XMS_ITS | Encounter Summary ---
Author Organization [facility] Address [address] [address] Care Team Providers Care Payroll Tax Specialist Name Role Phone Velasquez Langley MD Primary Care Provider [phone] Reason for Referral * (Routine) - Pending ReviewSpecialtyDiagnoses / ProceduresReferred By Contact Referred To Contact Diagnoses Paroxysmal atrial fibrillation (CMS/HCC) Procedures ECG 12 lead Isabelle Maldonado CNP [address] [place] [address] Phone: tel: fax: Referral IDStatusReasonStart DateExpiration DateVisits RequestedVisits [id number] Rlbqsw00/ Encounter Details DateTypeDepartmentCare Team (Latest Contact Info)Hvqczekeflm79/05/2025Orders Only [facility] at [facility] [address] [place] [address] Migel RenettaONESIMO Paroxysmal atrial fibrillation (CMS/HCC) (Primary Dx) Social History Tobacco UseTypesPacks/DayYears UsedDateSmoking Tobacco: FormerCigarettes Smokeless Tobacco: NeverAlcohol UseStandard Drinks/WeekCommentsNever0 (1 standard drink = 0.6 oz pure alcohol)[facility] UtilitiesAnswerDate RecordedIn the past 12 months [...] times a week01/27/2024How often do you attend alevism or hindu services?Never01/27/2024o you belong to any clubs or organizations such as alevism groups, unions, fraternal or athletic groups, or school groups?No01/27/2024How often do you attend meetings of the clubs or organizations you belong to?Never01/27/2024re you , , , , never , or living with a partner?Agfkyic4601/27/2024 AUDIT-CAnswerDate RecordedQ1: How often do you have [...] at all 08/26/2024PHQ-2AnswerDate RecordedPatient Health Questionnaire-2 Score0 05/11/2024[place] [facility] [place] of Occupational Health - Occupational Stress QuestionnaireAnswerDate RecordedDo you feel stress - tense, restless, nervous, or anxious, or unable to sleep at night because yourmind is troubled all the time - these days?To some uwlghg0301/27/2024UT Safety & EnvironmentAnswerDate RecordedFear of Current or [...] were you homeless or living in a chcf (including now)?No08/26/2024 Hunger Vital SignAnswerDate RecordedWithin the past 12 months, you worried that your food would run out before you got the money to buymore.Never true08/26/2024 Within the past 12 months, the food you bought just didn't last and you didn't have money to get more.Never true08/26/2024CommentsNoSex and Gender InformationValueDate RecordedSex Assigned at OoofdDcmiua88/03/2024 11:08 AM EST Legal QbsBuqgmv44/29/2022 11:01 PM EDTGender PwaxfxhqIlywlc69/03/2024 11:08 AM ESTSexual OrientationHeterosexual or Bmlcfcch26/03/2024 11:08 AM ESTdocumented as of this encounter Plan of Treatment DateTypeDepartmentCare Team (Latest Contact Info)Hzzpkzpbewi06/15/2025 1:20 PM ESTOffice Visit [facility] [address] [place] [address] Bhavesh Fulton MD [address] [place] [address] NameTypePriorityAssociated DiagnosesOrder ScheduleECG 12 leadECGRoutine Paroxysmal atrial fibrillation (CMS/HCC) Ordered: 12/29/2024documented as of this encounter Visit Diagnoses Diagnosis Paroxysmal atrial fibrillation (CMS/HCC)- Primary Atrial fibrillation documented in this encounter Care Teams Team MemberRelationshipSpecialtyStart DateEnd Velasquez Langley MD [address] [facility] [address] [address] PCP - Umnnpcq45/8/24documented as of this encounter
--- OUTSIDE RECORDS SUMMARY | 2025-01-01 15:57 | XMS_ITS | Clinical Summary ---
Author Organization [facility] Address [address] [place] [address] Care Team Providers Care Blow Up Operator Name Role Phone Velasquez Langley MD Primary Care Provider Allergies Active AllergyReactionsCriticalityNoted CkbnKrqywsklCxxjqhfXetlmlq30/29/2025 GxjgqgmtqrxhEmkfx82/11/2024 Had to bring me back. Had to pump my heart OpxgtyaiGxggrnq20/22/5643YcovxibyyrTlgcerdybgwDoat59/08/2024NalbuphineItching, Jzsryph8906/27/2017 Other Reaction(s): Itching RarwqtdrnxjxNawdvgm37/04/2018 Other Reaction(s): Unknown Reaction Jykvudh-Uzj-Bwk Reductase GrjtnlhmakAlhzfqf34/04/2018Sulfa (Sulfonamide Antibiotics)Itching,Fgemcec0806/27/2017 Other Reaction(s): Itching SyjasdCfzseew52/29/2024 Medications MedicationSigDispense QuantityRefillsLast FilledStart DateEnd DateStatus albuterol [...] ProblemNoted DateDiagnosed DateV-tach12/22/2024Gallbladder colic08/27/2024 Chronic diastolic heart scmwvpu5102/02/2024Mesenteric artery tofllzuf09/09/2024AA (abdominal aortic aneurysm) without auvmwis1001/27/2024enign hypertensive heart disease without congestive heart xrkvupt8012/31/2023oronary artery disease involving [place] coronary artery of [place] heart without angina pectoris 12/31/20238086Laxcyfzssjogtg83/11/2024iabetes iemiqwmv74/11/2024History of urinary tract grlmnyorm90/11/2024ladder outlet xrcjqktqiwx86/11/2024ostinfective urethral stricture in jzkial0212/05/2023cute intractable pjwzbeln91/11/2024sthma 12/05/2023ladder tpcbaerwi87/11/2024hronic obstructive pulmonary disease 12/05/20233409Ooiotcb11/11/2024Female ljhnxsceo31/11/2024etention of urine 12/05/2023Flank pain12/05/2023Gross ewehgiwts44/11/2024ure hypercholesterolemia 12/05/2023Other specified postprocedural cqlfzf3912/05/2023ostoperative pain of qcuglrhlo60/11/2024ight hand pain12/05/2023Stress incontinence of urine 12/05/2023Urge incontinence of urine12/05/2023OPD without exacerbation 12/05/2023trial vtorligciwvt51/11/2024cute respiratory failure with hypoxia 12/05/2023NSVT (nonsustained ventricular tachycardia)12/02/2023yspnea on jbinpfsx46/08/2024Moderate tuamenowpsxa21/21/4823Votwawglnyp24/19/2020 Overview (12/05/2023): Replacement after MRI Aneurysm of infrarenal abdominal aorta10/09/2019 Resolved Problems ProblemNoted DateDiagnosed DateResolved DateV-tach/Unstable /07/20236561Bssprpsrchhn04Right renal artery ixktgjzl99Secondary xwlbwqpcajkc09 Xfcbsnqyemvf29Hypertensive syakwqr77 Dperwrnuhpy16 Encounters DateTypeDepartmentCare HczlKzyzugfxalp45/05/2025Orders Only [facility] [address] [place] [facility] [place] [address] Renetta Lainez MA Paroxysmal atrial fibrillation (CMS/HCC) (Primary Dx)12/27/2024[facility] [address] [place] [facility] [place] [address] Kristie Chow MA Mesenteric artery yomdxjhm83/29/2025 2:00 PM EDTOffice Visit [facility] [address] [place] [facility] [place] [address] Bhavesh Fulton MD Chronic diastolic heart failure (CMS/HCC) (Primary Dx); Coronary artery disease involving [place] coronary artery of [place] heart without angina pectoris; Paroxysmal atrial fibrillation (CMS/HCC); V-tach (CMS/HCC); Abdominal aortic aneurysm (AAA) without rupture, unspecified part; Mesenteric artery stenosis; Benign hypertensive heart disease without congestive heart failure; Pure hypercholesterolemia; Type 2 diabetes mellitus without complication, without long-term current use of insulin (CMS/HCC)12/22/2024Orders Only [facility] [address] [place] [facility] [place] [address] Kristie Chow MA ZAVALA (dyspnea on exertion) (Primary Dx)12/15/2024[facility] [address] [place] [address] Ron Crooks PA-C Mesenteric artery howihzpu07/28/2025Telephone [facility] [address] [place] [facility] [address] Renetta Lainez MA from Last 3 Months Family History RelationNameStatusCommentsFatherDeceasedMotherDeceased Social History Tobacco UseTypesPacks/DayYears UsedDateSmoking Tobacco: FormerCigarettes Smokeless Tobacco: Never Tobacco Cessation:Counseling Given: Yes Alcohol UseStandard Drinks/WeekCommentsNever0 (1 standard drink = 0.6 oz pure alcohol)[facility] UtilitiesAnswerDate RecordedIn the past 12 months [...] times a week01/27/2024How often do you attend cheondoism or scientology services?Never01/27/2024o you belong to any clubs or organizations such as cheondoism groups, unions, fraternal or athletic groups, or school groups?No 01/27/2024How often do you attend meetings of the clubs or organizations you belong to?Never01/27/2024re you , , , , never , or living with a partner?Abofoaa5601/27/2024UDIT-CAnswerDate RecordedQ1: How often do you have a [...] hard at all08/26/2024PHQ-2AnswerDate Recorded Patient Health Questionnaire-2 Iprsz370[facility] [place] of Occup[facility] - Occupational Stress QuestionnaireAnswerDate RecordedDo you feel stress - tense, restless, nervous, or anxious, or unable to sleep at night because your mind is troubled all the time - these days?To some tuhuun9901/27/2024UT Safety & EnvironmentAnswerDate RecordedFear of Current or [...] homeless or living in a intermediate (including now)?No08/26/2024Hunger Vital SignAnswerDate RecordedWithin the past 12 months, you worried that your food would run out before you got the money to buymore.Never true08/26/2024Within the past 12 months, the food you bought just didn't last and you didn't have money to get more.Never true 08/26/2024CommentsNoSex and Gender InformationValueDate RecordedSex Assigned at IlmxrRjpqhc68/03/2024 11:08 AM ESTLegal OowAxumhe39/29/2022 11:01 PM EDTGender RnqebcpbRsjiwh15/03/2024 11:08 AM ESTSexual OrientationHeterosexual or Atcstvwq67/03/2024 11:08 AM EST Last Filed Vital Signs Vital SignReadingTime TakenCommentsBlood Acpptdei583/6710 2:12 PM EDT Stehv453712/22/2024 2:12 PM SZSWrlwvvzljeh07.2 ??C (98.9 ??F)08/27/2024 8:00 AM EDTRespiratory Vjag191808/27/2024 11:00 AM EDTOxygen Nxqpfrbzxz01%12/22/2024 2:12 PM EDTInhaled Oxygen Concentration--Zkpucf24.6 kg (171 lb)12/22/2024 2:12 PM EDT Ucbsbq876 cm (5' 3 )12/22/2024 2:12 PM EDTBody Mass Index30.291 2:12 PM EDT Plan of Treatment DateTypeDepartmentCare Team (Latest Contact Info)Zbuergnhgzc66/15/2025 1:20 PM [address]Office [address] [facility] [address] [place] [address] Bhavesh Fulton MD [address] [place] [address] [address] [place] [address] Health MaintenanceDue DateLast DoneCommentsMedicare Annual Wellness (AWV) 4Diabetes: Retinopathy Dxcsmquas58/30/1954Adult Kzqraep6705/23/1965Zoster Vaccines (1 of 2)05/23/1993Pneumococcal Vaccine: 50+ Years (2 of 2 - PCV) /Diabetes: Hemoglobin A1C/510/4COVID-19 Vaccine ( - 2024- season)510/, 05/19/2020, 04/21/2020, Additional history existsDepression Salndgkbk78Fall Risk Screening /05/2024Influenza ZeaydbsCzrahoucq80/22/2025, 12/08/2023, 12/25/2022, Additional history existsHIB VaccinesAged OutNo [...] IdentifierShelf Expiration DateModel / Serial / LotHeli-Fx Chemical Recovery Operator And Endoanchor Cassette Implanted:Qty: 1 on 01/28/2024 by [facility]AnchorN/A: [id number]-85 / / [id number]:7 IMPLANTED, 10 COME IN A BOXEndurant Stent Graft System Implanted:Qty: 1 on 01/28/2024 by [facility]GraftN/A: [id number] / [id number] / Endurant Ii Stent Graft Implanted:Qty: 1 on 01/28/2024 by [facility]ep [facility]GraftN/A: [id number]/07/[id number] / [id number] / Description:LEFT COMMON ILIACEndurant Ii Stent Graft Implanted:Qty: 1 on 01/28/2024 by Sand[facility]ep [facility] at [facility] HospitalGraftN/A: [id number] / [id number] / Description:RIGHT COMMON ILIACStent,Express2,Bili,8c18g097 - [id number] Implanted:Qty: 1 on 02/05/2024 by Gilberto Whitten [facility] at [facility]tentN/A: AbdomenBoston [id number]/05/2025 [id number] / / [id number],Expr Reid Moe,6.6w06c369 - [id number] Implanted:Qty: 1 on 02/05/2024 by Gilberto Whitten MD at [facility]entN/A: AbdomenBOSTON SCIENTIFIC/[id number]/01/2027 [id number] / / [id number] Procedures Procedure NamePriorityDate/TimeAssociated DiagnosisCommentsHEMOGLOBIN S7MEuo-Hc 12/05/2023 3:35 AM EDT from Last 3 Months or Most Recently Relevant to Health Maintenance Results * Hemoglobin A1c (12/05/2023 3:35 AM EDT)ComponentValueRef RangeTest Method Analysis TimePerformed AtPathologist SignatureHemoglobin A1C5.34.0 - 6.0 % 12/05/2023 10:16 AM [facility] ([facility])Estimated Average Eailgkf045 mg/dL12/05/2023 10:16 AM [facility] ([facility])Specimen (Source) Anatomical Location / LateralityCollection Method / VolumeCollection Time Received TimeBloodVenous blood specimen / UnknownArterial Line / Unknown 12/05/2023 3:35 AM EDT1 4:04 AM EDT Narrative Authorizing ProviderResult TypeResult StatusDaniela Van MDLAB BLOOD ORDERABLES Final ResultPerforming OrganizationAddressCity/State/ZIP CodePhone Number [facility] ([facility]) [address] [place] [address] from Last 3 Months or Most Recently Relevant to Health Maintenance Insurance Advance Directives * Full Code (Latest Code Status on File) Date ActivatedDate InactivatedComments08/26/2024 5:06 PM08/27/2024 2:13 PM * Full Code Date ActivatedDate ZcbjairxuyjRzrhecsq69/9/2024 6:08 AM02/12/2024 1:43 PM * Full Code Date ActivatedDate HjgwajgzodvIceozfms87/3/2024 5:00 PM01/31/2024 2:34 PM * Full Code Date ActivatedDate DxzhxivqoppTltjrokk12/11/2024 2:56 AM12/06/2023 2:19 PM Care Teams Team MemberRelationshipSpecialtyStart DateEnd Date Velasquez Langley MD [address] [facility] [place] [address] PCP - Mhbocmz36/8/24
--- OUTSIDE RECORDS SUMMARY | 2025-01-01 15:57 | XMS_ITS | Encounter Summary ---
Author Organization [facility] Address [address] [place] [address] Care Team Providers Care Seo Professional Name Role Phone Velasquez Langley MD Primary Care Provider [phone] Reason for Visit * ReasonOnset DateCommentsMed Asgjfg7312/27/2024 Encounter Details DateTypeDepartmentCare Team (Latest Contact Info)Hdkcpesyaky51/03/2025Refill [facility] at [facility] [address] [place] [address] Kristie Chow MA Mesenteric artery stenosis Social History Tobacco UseTypesPacks/DayYears UsedDateSmoking Tobacco: FormerCigarettes Smokeless Tobacco: NeverAlcohol UseStandard Drinks/WeekCommentsNever0 (1 standard drink = 0.6 oz pure alcohol)[facility] UtilitiesAnswerDate RecordedIn the past 12 months has the electric, gas, oil, or water Med Access threatened to shut off services in your [...] times a week01/27/2024How often do you attend taoist or hindu services?Never01/27/2024o you belong to any clubs or organizations such as taoist groups, unions, fraternal or athletic groups, or school groups?No01/27/2024How often do you attend meetings of the clubs or organizations you belong to?Never01/27/2024re you , , , , never , or living with a partner?Lcqclpp3801/27/2024 AUDIT-CAnswerDate RecordedQ1: How often do you have [...] at all 08/26/2024PHQ-2AnswerDate RecordedPatient Health Questionnaire-2 Score0 05/11/2024[facility] - Occupational Stress QuestionnaireAnswerDate RecordedDo you feel stress - tense, restless, nervous, or anxious, or unable to sleep at night because yourmind is troubled all the time - these days?To some tfuvsf7601/27/2024UT Safety & EnvironmentAnswerDate RecordedFear of Current or [...] true08/26/2024CommentsNoSex and Gender InformationValueDate RecordedSex Assigned at XdentBgnjrc07/03/2024 11:08 AM EST Legal WzkYkdkux64/29/2022 11:01 PM EDTGender TycyeetcQpwpzu69/03/2024 11:08 AM ESTSexual OrientationHeterosexual or Mplgelwt89/03/2024 11:08 AM ESTdocumented as of this encounter Plan of Treatment DateTypeDepartmentCare Team (Latest Contact Info)Qyjubryysnk59/15/2025 1:20 PM ESTOffice Visit [facility] [address] [place] [address] Bhavesh Fulton MD [address] [place] [address] [address] [place] [address] documented as of this encounter Visit Diagnoses Diagnosis Mesenteric artery stenosis Stricture of artery documented in this encounter Care Teams Team MemberRelationshipSpecialtyStart DateEnd Velasquez Langley MD [address] [facility] [address] [address] PCP - Pgfiuur38/8/24documented as of this encounter
--- OUTSIDE RECORDS SUMMARY | 2025-01-01 15:57 | XMS_ITS | Clinical Summary ---
Author Organization [facility] tem Address [id number] [address] [place] [address] Care Team Providers Care Underliner Name Role Phone Velasquez Langley MD Primary Care Provider [phone] Allergies Active AllergyReactionsCriticalityNoted KqnzZnummbylOlalslrhsfnb36/22/2019 Mjpvasjtorrzd22/22/9928Kcspnvwfnc80/22/1683Cfujxfbqmz55/22/2019Promethazine 10/15/20186955Idnzdlx-Ffu-Xbu Reductase Zxgnatqrce95/22/2019Sulfa (Sulfonamide Antibiotics)10/15/2018 Medications MedicationSigDispense QuantityRefillsLast FilledStart DateEnd DateStatus ezetimibe (ZETIA) 10 mg tablet Take 10 mg by mouth daily.Active irbesartan (AVAPRO) 300 mg tablet Take 300 mg by mouth nightly.Active metoprolol tartrate (LOPRESSOR) 50 mg tablet Take 100 mg by mouth 2 (two) times a day.Active Social History Tobacco UseTypesPacks/DayYears UsedDateSmoking Tobacco: FormerSmokeless Tobacco: NeverChildcareAnswerDate NhopkccqBszdstqmtEyeiscj28/12/2019EmploymentAnswerDate RyofoffgGriypmqehmFllrugw12/12/2019Purpose - LifeAnswerDate RecordedPurpose and direction in nbuxUskgsns99/11/2021CommentsNoSex and Gender Information ValueDate RecordedSex Assigned at BirthNot on fileLegal EsjTdtiev58/06/2015 11:42 AM EDTGender IdentityNot on fileSexual OrientationNot on file Last Filed Vital Signs Vital SignReadingTime TakenCommentsBlood Rlzhtson229/7708 10:41 PM EDT Xehqu9855 10:41 PM MLUMpgtxcgngxg12.7 ??C (98 ??F)10/15/2018 10:41 PM EDTRespiratory Xbkr690810/15/2018 10:41 PM EDTOxygen Sksqvtevhg98%10/15/2018 8:09 PM EDTInhaled Oxygen Concentration--Moeoqw98.8 kg (165 lb)10/15/2018 7:26 PM EDT Ghrkzj878.6 cm (5' 4 )10/15/2018 7:26 PM EDTBody Mass Index28.32010/15/2018 7:26 PM EDT Plan of Treatment Health MaintenanceDue DateLast DoneCommentsDepression Txgnvxiri38/30/1956Tobacco Kkqozuwch02/30/1956DTaP,Tdap and Td Vaccines (1 - Tdap)05/23/1962Zoster (Shingles) Vaccine (1 of 2)05/23/1993Fall Risk Ettfgxmwq63/30/2009RSV ( or age 60+ yrs) (1 - 1-dose 75+ series)05/23/2018Influenza Alpswyu8810/25/2024 Medical Devices Not on file Insurance Care Teams Team MemberRelationshipSpecialtyStart Date Velasquez Langley MD PCP - GeneralFamily Medicine10/15/18
--- OUTSIDE RECORDS SUMMARY | 2025-01-01 15:58 | XMS_ITS | CCD ---
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 Name Role Phone VELASQUEZ BUNCH Unavailable Unavailable DALTON, RACHAEL Morales Unavailable Unavailable ALTON, BRUCE Unavailable Unavailable ALTON, [...] Provider Velasquez Bunch MD Primary Care Provider [phone] CURRY RED Attending Unavailable IVA TA Attending Unavailable HORANI, SCARLETT Attending Unavailable HORANI, SCARLETT Admitting Unavailable MARKER, RYAN J Referring Unavailable HORANI, SCARLETT Attending Unavailable HORANI, SCARLETT Admitting Unavailable HORANI, SCARLETT Referring Unavailable ODILIA, YOUNGSOOK Referring Unavailable GEMA, PEARL Referring Unavailable YAÑEZ, CELENA Referring Unavailable AKRAWI, KITA Attending Unavailable BEACHUM, ROSA Referring Unavailable MARLEE, [...] Attending Unavailable YAÑEZ, CELENA Attending Unavailable YAÑEZ, CELNEA Attending Unavailable PERNEYOVANY Attending Unavailable NAZZAL, MUNIER Attending Unavailable HERNANDEZ, KIRSTIE Referring Unavailable NAZZAL, DLIER Attending Unavailable NAZZAL, MUNIER Admitting Unavailable Diab ([facility]) Jaclyn MACIAS Attending Provider [phone] Velasquez Bunch Admitting Unavailable Velasquez Bunch Primary Care Unavailable Velasquez Bunch Attending Unavailable Lamin ([facility])Jaclyn Admitting Unavailable Lamin ([facility])Jaclyn Attending Unavailable Allergies Allergy ClassificationReported Allergen(s)Allergy TypeDate of OnsetReaction(s) Facility (8 sources)Adhesive Tape; Translations: [Adhesive tape]Propensity to adverse reactions to pivq60-48-4240Sjlzcfo [facility], [place], [place] (11 sources)CiprofloxacinDrug Hwwcyva62-95-7628LhhrbbvAqker Health- [place], [place] (1 source)Hmg-Coa Reductase Inhibitors (Statins)Propensity to adverse reactions to vwff35-83-1105[place] (12 sources)Meperidine; Translations: [MEPERIDINE]Drug Zhasqpc76-73-4114 [place] (12 sources)moxifloxacin; Translations: [MOXIFLOXACIN]Drug Xrnxvwu46-03-2507 Anaphylaxis, [place], [place] (12 sources)Nalbuphine; Translations: [NALBUPHINE]Drug Xzleqwh63-71-9317Fvuqoya [place], [place] (12 sources)Promethazine; Translations: [PROMETHAZINE]Drug Dctydgf70-03-7472 [place], [place] (1 source)Sulfonamides (Antibiotic)Propensity to adverse reactions to drug 66-30-4954QopxtMill[place], [place] (3 sources)black walnut pollen extract; Translations: [YUOSGGN-FYP-HIS REDUCTASE INHIBITORS]Drug Tahwwkp23-71-9048[facility] (2 sources)CiprofloxacinDrug Nfabzpq76-79-8753Nam [facility] Repository (2 sources)LevamisoleDrug Lbdxsoy23-43-0849Wjr [facility] Repository (2 sources)MeperidineDrug Nrwfjhg60-43-6234Dsf [facility] Repository (2 sources)moxifloxacinDrug Qdjvwct27-94-9811LahTr[facility] (2 sources)NalbuphineDrug Cosjmjv28-21-3541Vhh [facility] Repository (1 source)Sulfonamides (Antibiotic)Drug allergy (disorder)23-50-8333Mes [facility] Repository (5 sources)Sulfacetamide; Translations: [sulfacetamide]Drug Ffwszhv75-89-0444 Unknown [facility], [facility] (6 sources)Sulfur; Translations: [SULFUR]Drug Ylukecw45-15-4240EnmxuqnJoint [facility] (5 sources)Uiaqeli-QQH-TjK Reductase Inhibitor; Translations: [Zderzbj-SIB-ZpU Reductase Inhibitor]Allergy to oqoixhzjz81-85-1496VgitqolC[facility] (6 sources)atorvastatinDrug Rropckr57-08-4002IrklmxzDIWP Healthcare Work Phone: (7 sources)cefdinir; Translations: [CEFDINIR]Drug Frdotcv09-33-5853BlyveeiEXRW Healthcare (6 sources)HMG-CoA reductase inhibitorDrug Vlsldae74-25-9966AlnlfrqIYOP Healthcare (6 sources)MeperidineDrug Jnojkgu91-01-6874IughhruIMEK Healthcare (6 sources)PromethazineDrug Vwdieke31-74-8281URUN [facility] (6 sources)Sulfonamides (Antibiotic)Drug Gmvzffz73-94-0571MxnaytsWGNT Healthcare (6 sources)Wound Dressing AdhesiveDrug Ngfuctq96-62-9199TvixazmVJEP Healthcare (1 source)Aspirin; Translations: [ASPIRIN]Drug Dhdqzur72-97-0361BspuvohqxyC[facility] (1 source)Sulfonamides (Antibiotic); Translations: [SULFA (SULFONAMIDE ANTIBIOTICS)]Propensity to adverse reactions to drug (disorder)06-27-2017 [facility] Repository (1 source)CiprofloxacinDrug Mjltphv68-20-0034DrtovaewnSt. Vincent Hospital Repository (1 source)MeperidineDrug Unhiqfb65-41-9446SsqvwlyovSt. Vincent Hospital Repository (1 source)moxifloxacinDrug Wenosqc41-00-3271ItzfsrxhrSt. Vincent Hospital Repository (1 source)NalbuphineDrug Cioxgow29-04-5365LllwmysmkSt. Vincent Hospital Repository (1 source)PromethazineDrug Bkfgtvt86-62-9039DikhhorqrSt. Vincent Hospital Repository Medications Current Medications MedicationDrug Class(es)DatesSig (Normalized)Sig (Original)acetaminophen 500 mg oral tablet (3 sources)Start: 20-57-4232dulk 2 tablets by mouth every six hours as needed for painStart: 01-21-5418afmlrbnnbidlb (TYLENOL) tablet 650 mgacetaminophen 325 mg / butalbital 50 mg / caffeine 40 mg oral tablet (1 source)Barbiturate, Central Nervous System Stimulant, MethylxanthineStart: 47-85-6547kbbhmdhxpd-acetaminophen-caffeine (FIORICET, ESGIC) per tablet 1 tabletacetaminophen 325 mg / HYDROcodone bitartrate 5 mg oral tablet (1 source)Opioid AgonistStart: 99-56-8671dyhi 1 tablet by mouth every four to six hours as needed for [id number] 200 actuat albuterol 0.09 mg/actuat metered dose inhaler (4 sources)beta2-Adrenergic AgonistStart: 94-59-0701magc 1 puff(s) by inhalation twice daily as needed for wheezingStart: 77-21-2153Hotmhbnaf Sulfate Active INHALATION April 08, 2023 12:00amalbuterol 0.833 mg/ml / ipratropium bromide 0.167 mg/ml inhalant solution (2 sources)Anticholinergic, beta2-Adrenergic AgonistStart: 10-11-2019 ipratropium-albuterol (DUONEB) nebulizer solution 1 ampuleStart: 10-09-2019 End: ampule, Inhalation, EVERY 4 HOURS WHILE AWAKE, First dose on 10/09/19 at 1600amiodarone hydrochloride 200 mg oral tablet (5 sources)AntiarrhythmicStart: 34-23-0404fqay 2 tablets by mouth twice daily, then [...] (5 sources)Dihydropyridine Calcium Channel BlockerStart: 06-29-2017 End: 14-96-4061vthx 1 tablet by mouth once dailyamLODIPine (NORVASC) 10 MG tablet Take 1 tablet by mouth daily 30 tablet 3 10/15/2019 Activeapixaban 5 mg oral tablet (5 sources)Factor Xa Inhibitortake 1 tablet by mouth every twelve hoursEliquis 5 MG tablet 5 mg every 12 (twelve) hours Activeaspirin 81 mg chewable tablet (2 sources)Platelet Aggregation Inhibitor, Nonsteroidal Anti-inflammatory Drug Start: 80-17-3058lrlv 1 tablet by mouth once dailyaspirin 81 MG chewable tablet Take 1 tablet by mouth daily 30 tablet 3 10/16/2019 Activeaugmented betamethasone 0.5 mg/ml topical cream (6 sources)Corticosteroidbetamethasone, augmented, (Diprolene AF) 0.05 % cream Indications: Atopic Dermatitis Apply 1 application topically in the morning and 1 application before bedtime. Activebisacodyl 10 mg rectal suppository (1 source)Stimulant LaxativeStart: 90-56-4109xowdapmep (DULCOLAX) suppository 10 mgcalcium chloride 0.0014 meq/ml / potassium chloride 0.004 meq/ml / sodium chloride 0.103 meq/ml / sodium lactate 0.028 meq/ml injectable solution (1 source)Start: 86-62-7357ovelcdqj ringers infusiondocusate sodium 100 mg oral capsule (2 sources)Start: 10-17-2019 End: 58-89-1159ecfw 2 capsules by mouth once dailydocusate sodium (COLACE) 100 MG capsule Take 2 capsules by mouth daily 60 capsule 1 10/17/2019 11/17/2019 ActiveStart: 85-46-3130atzbybmk sodium (COLACE) capsule 200 mgdoxycycline hyclate 100 mg oral tablet (1 source)Tetracycline-class DrugStart: 23-06-6173apfd 1 tablet by mouth twice daily2 ml dupilumab 150 mg/ml auto-injector (3 sources)Interleukin-4 Receptor alpha AntagonistStart: 01-14-2023 End: 97-12-2236Kfdhoygn 300 MG/2ML injection Indications: Other atopic dermatitis Inject 2 mL (300 mg) under the skin every 14 (fourteen) days. 4 mL 01/14/2023 01/16/2024 Discontinued (Side effects)empagliflozin 10 mg oral tablet (8 sources)Sodium-Glucose Cotransporter 2 InhibitorStart: 51-29-4118pfdr 1 tablet by mouth once daily as needed0.4 ml enoxaparin sodium 100 mg/ml prefilled syringe (1 source)Low Molecular Weight HeparinStart: 57-59-9260aoyqii 40 mg by subcutaneous injection once daily40 mg, Subcutaneous, DAILY, First dose on 10/09/19 at 1245ezetimibe 10 mg oral tablet (12 sources)Dietary Cholesterol Absorption InhibitorStart: 33-09-0282amnb 1 tablet by mouth once daily at bedtimefexofenadine hydrochloride 180 mg oral tablet (5 sources)Histamine-1 Receptor AntagonistStart: 01-16-2024 End: 40-24-0575rych 1 tablet by mouth once dailyfexofenadine (Brenda) 180 MG tablet Indications: Other atopic dermatitis Take 1 tablet daily, by mouth, 30 days 30 tablet 11 01/16/2024 05/21/2024 Discontinuedfurosemide 20 mg oral tablet (10 sources)Loop DiureticStart: 69-40-2399tdwn 1 tablet by mouth once daily as needed for edemafurosemide (Lasix) 8 MG/ML solution Take by mouth Daily. Active glucagon (rdna) 1 mg injection (1 source)Antihypoglycemic AgentStart: 86-90-0846crgfuypy (rDNA) injection 1 mg 150 ml glucose 50 mg/ml injection (3 sources)Start: 57-28-5920qczxzoak 5 % solutionStart: 12-06-3499ksgzcll (GLUTOSE) 40 % oral gel 15 gStart: 82-01-5921gatyuuum 50 % IV solution hydrALAZINE hydrochloride 100 mg oral tablet (3 sources)Arteriolar VasodilatorStart: 06-46-4864idwy 1 tablet by mouth every eight hourshydrALAZINE (APRESOLINE) 100 MG tablet Take 1 tablet by mouth every 8 hours 90 tablet 3 10/15/2019 ActiveStart: 67-67-7061kshlXWGVMZF (APRESOLINE) tablet 100 mgStart: 60-98-8421euzyPHYFJBN (APRESOLINE) injection 10 mg hydroCHLOROthiazide 25 mg oral tablet (10 sources)Thiazide DiureticStart: 25-38-2320rdcs 1 tablet by mouth once daily in the morningtake 2 tablets by mouth in the morninghydroCHLOROthiazide (HYDRODiuril) 12.5 MG tablet Take 25 mg by mouth in the morning. Active hydrOXYzine hydrochloride 25 mg oral tablet (10 sources)AntihistamineStart: 01-16-2024 End: 29-64-6566xvuz 1 tablet by mouth every 30 days as neededhydrOXYzine HCl (Atarax) 25 MG tablet Indications: Other atopic dermatitis Take 1 tablet, by mouth,as needed for itching at bedtime, 30 day supply. 30 tablet 11 01/16/2024 05/21/2024 DiscontinuedStart: 37-78-9866nrxd 1 tablet by mouth four times daily as neededhydrOXYzine HCl (Atarax) 25 MG tablet TAKE 1 TABLET BY MOUTH 4 TIMES A DAY NEEDED FOR 10 DAYS 11/13/2023 Activeinsulin lispro 100 unt/ml injectable solution (2 sources)Insulin AnalogStart: 35-18-4988zrdqvwe lispro (HUMALOG) injection vial 0-3 Units24 hr [...] sources)Nonsteroidal Anti-inflammatory Drug, Cyclooxygenase InhibitorStart: 10-15-2019 End: 75-86-4285sziyzkmsi (TORADOL) injection 15 mgStart: 10-09-2019 End: 37-15-9410lvefwibkb (TORADOL) injection 15 mglabetalol (NORMODYNE;TRANDATE) injection syringe 10 mg (1 source)Start: 44-63-4733timnorfod (NORMODYNE;TRANDATE) injection syringe 10 mglisinopril 40 mg oral tablet (4 sources)Angiotensin Converting Enzyme InhibitorStart: 15-37-5720xowx 1 tablet by mouth once dailylisinopril (PRINIVIL;ZESTRIL) 40 MG tablet Take 1 tablet by mouth daily 30 tablet 3 10/16/2019 ActiveStart: 23-74-3919mumagvbfmb (PRINIVIL;ZESTRIL) tablet 40 mgStart: 10-10-2019 End: 67-05-7208anazchshxp (PRINIVIL;ZESTRIL) tablet 20 mgmeclizine hydrochloride 25 mg oral tablet (14 sources)AntiemeticStart: 20-54-2333gebc 1 tablet by mouth once daily as needed for dizzinessStart: 10-15-2019 End: 87-83-7342spzfotjaw (ANTIVERT) tablet 12.5 mgStart: 10-09-2019 End: 81-05-4696knmknvfkb (ANTIVERT) tablet 25 mgtake 1 tablet by mouth three times daily as needed for dizzinessmeclizine (Antivert) 25 MG tablet Take 25 mg by mouth 3 (three) times a day as needed for dizziness. Cjgpjx32 hr memantine hydrochloride 28 mg extended release oral capsule (10 sources)L-tuecvh-R-aspartate Receptor AntagonistStart: 84-10-2123snlo 1 capsule by mouth once daily in the morningStart: 32-63-8025Zadctktiv Active MG PO April 08, 2023 12:00ammemantine (Namenda Titration Pack) 28 x 5 MG & 21 x 10 MG tablet pack Take by mouth See administration instructions. Follow package directions. Fwcdoi26 hr metFORMIN hydrochloride 500 mg extended release oral tablet (10 sources)BiguanideStart: 42-25-8905jlux 1 tablet by mouth twice dailyStart: 06-73-2914Gamamuwbr Active MG PO April 08, 2023 12:00amtake 1 tablet by mouth at mealtime, then take 1 tablet by mouth every twenty-four hoursmetFORMIN, OSM, (Fortamet) 500 MG 24 hr tablet Take 500 mg by mouth in the evening. Take with meals. Do not crush, chew, or split. Activemetoprolol tartrate 100 mg oral tablet (4 sources)beta-Adrenergic BlockerStart: 28-76-4395qugc 1 tablet by mouth twice dailymetoprolol tartrate (LOPRESSOR) 100 MG tablet Take 1 tablet by mouth 2 times daily 60 tablet 5 10/15/2019 ActiveStart: 15-57-0488gtzlujyhxj tartrate (LOPRESSOR) tablet 100 mgStart: 10-09-2019 End: 33-22-4120hqgu 50 mg by mouth twice daily50 mg, Oral, 2 TIMES DAILY, First dose on 10/09/19 at 1245 End: 64-59-1376ujar 2 tablets by mouth twice dailymetoprolol tartrate [...] disintegrating oral tablet (3 sources)Serotonin-3 Receptor AntagonistStart: 64-62-6377rmdr 1 tablet by mouth every six hours as needed for nausea and vomitingStart: 10-09-2019 End: 83-66-3522xwaxldqaand (ZOFRAN) injection 4 mgStart: 10-09-2019 End: 86-41-3146fpbmplabrvk (ZOFRAN) 4 MG/2ML injectionondansetron (ZOFRAN-ODT) disintegrating tablet 4 mg (1 source)Start: 24-19-7094yuhrrzsmmdq (ZOFRAN-ODT) disintegrating tablet 4 mg polyethylene glycol 3350 29399 mg powder for oral solution (3 sources)Osmotic LaxativeStart: 10-09-2019 End: 07-05-6158pzqc 17 g by mouth once dailypolyethylene glycol (GLYCOLAX) 17 g packet Take 17 g by mouth daily 527 g 5 10/16/2019 11/15/2019 ActivePotassium (6 sources)Potassium (POTASSIMIN PO) Take by mouth. ActivePotassium Chloride (2 sources)Start: 51-88-7259wmbdwfrdh chloride (KLOR-CON M) extended release tablet 40 mEqStart: 59-99-6560hzrk 10 mL intravenous route every hour as [...] sodium chloride 9 mg/ml injection (4 sources)Start: 68-47-2998vtjioj chloride flush 0.9 % injection 10 mLStart: 10-11-2019 End: 62-75-6091vhrhkv chloride flush 0.9 % injection 10 mLStart: 09-86-165339 mL, Intravenous, EVERY 12 HOURS SCHEDULED (2 times per day), First dose on 10/09/19 at 2100Start: 75-94-5568whau 10 mL intravenous route once as mL, Intravenous, PRN, Line Care, After every IV line use, Starting 10/09/19 at 1227spironolactone 100 mg oral tablet (4 sources)Aldosterone AntagonistStart: 88-01-1381uqkj 1 tablet by mouth once dailyspironolactone (ALDACTONE) 100 MG tablet Take 1 tablet by mouth daily 30 tablet 3 10/16/2019 ActiveStart: 10-09-2019 End: 20-39-8778bxfakkpdrkitkq (ALDACTONE) tablet 50 mgtiotropium 0.018 mg inhalation powder (5 sources)Anticholinergictake 1 capsule by inhalation once dailySpiriva HandiHaler 18 MCG inhalation capsule inhale 1 capsule by inhalation route every day Inhalation Activetriamcinolone acetonide 1 mg/ml topical cream (5 sources)CorticosteroidStart: 49-87-1345bjbjwylvffuar (Kenalog) 0.1 % cream Indications: Other atopic dermatitis Apply to affected areas, up to twice a day when flared, do not use one the face, groin, or underarms, 30 day supply 454 g 11 01/16/2024 ActiveVit C,Y-Nf-Evmyx-Lutein-Zeaxan (Preservision Areds-2) 250-90-40-1 mg capsule (2 sources)Start: 53-10-3346Gquku: 07-22-9598Xbi C,P-Nd-Ioomm-Lutein-Zeaxan (Preservision Areds-2) 250-90-40-1 mg capsule Active 1 TAB PO Twice daily April 17, 2023 12:00am Completed/Discontinued Medications MedicationDrug Class(es)DatesSig (Normalized)Sig (Original)cloNIDine hydrochloride 0.1 mg oral tablet (2 sources)Central alpha-2 Adrenergic AgonistStart: 10-10-2019 End: 16-91-5282uixLFQwkw (CATAPRES) tablet 0.1 mgdiclofenac sodium 75 mg delayed release oral tablet (4 sources)Nonsteroidal Anti-inflammatory DrugStart: 04-08-2023 End: 89-49-1609Gvslatwxhl Sodium 75 mg tablet,delayed release (DR/EC) Discontinued 75 MG PO .prn April 08, 2023 12:00am April 24, 2023 9:33amDupilumab (4 sources)Start: 04-08-2023 End: 74-07-7017Pxbydglci (Dupixent Pen) 200 mg/1.14 mL pen injector Discontinued 200 MG SUBCUT EVERY 2 WEEKS April 08, 2023 12:00am April 17, 2023 12:56pmStart: 32-73-4487Cjiizxryo (Dupixent Pen) 200 mg/1.14 mL pen injector Active 200 MG SUBCUT EVERY 2 WEEKS April 08, 2023 12:00am2 ml fentaNYL 0.05 mg/ml injection (1 source)Opioid AgonistStart: 10-09-2019 End: 81-63-0725qixvtHRW (SUBLIMAZE) injection 50 mcgfluconazole 200 mg oral tablet (1 source)Azole AntifungalStart: 10-16-2019 End: 83-45-7193uguhkkwytak (DIFLUCAN) tablet 200 mggadoteridol (PROHANCE) injection 12 mL (1 source)Start: 10-15-2019 End: 20-95-2735dnamqfanvma (PROHANCE) injection 12 mLgadoteridol (PROHANCE) injection 13 mL (1 source)Start: 10-11-2019 End: 40-12-7579bppyylurkjq (PROHANCE) injection 13 mL1 ml haloperidol 5 mg/ml injection (1 source)Typical AntipsychoticStart: 10-09-2019 End: 00-98-4432bhwspgyfndf lactate (HALDOL) injection 5 mgStart: 10-09-2019 End: 03-98-6441zesgqnmhlwd lactate (HALDOL) injection 5 mgIohexol (2 sources)Radiographic Contrast AgentStart: 10-10-2019 End: 87-36-7690cqxvrxq (OMNIPAQUE 350) solution 90 mLStart: 10-09-2019 End: 32-73-9985jixyiey (OMNIPAQUE 350) solution 75 mLirbesartan 300 mg oral tablet (1 source)Angiotensin 2 Receptor Dodie End: 57-66-9075ehwq 1 tablet by mouth once dailyirbesartan (AVAPRO) 300 MG tablet Take 300 mg by mouth daily 0 10/09/2019 Discontinued (LIST CLEANUP) LORazepam 2 mg oral tablet (1 source)BenzodiazepineStart: 10-11-2019 End: 63-21-3298HISlfrvmd (ATIVAN) tablet 2 mg100 ml magnesium sulfate 10 mg/ml injection (1 source)Start: 10-10-2019 End: 90-41-1371vmqingbgn sulfate 1 g in dextrose 5% 100 mL IVPB methylPREDNISolone 125 mg injection (1 source)CorticosteroidStart: 10-10-2019 End: 03-14-2896yhdqgyNLBHSOAbaobm sodium (SOLU-MEDROL) injection 250 mg2 ml metoclopramide 5 mg/ml prefilled syringe (1 source)Dopamine-2 Receptor AntagonistStart: 10-10-2019 End: 63-38-6660qoadjnjwayfaxh (REGLAN) injection 10 mgniCARdipine (CARDENE) 25 mg in dextrose 5 % 250 mL infusion (1 source)Start: 10-09-2019 End: 87-14-1424cbJYSgixbzl (CARDENE) 25 mg in dextrose 5 % 250 mL infusion potassium bicarbonate 20 meq effervescent oral tablet (1 source)Start: 10-12-2019 End: 02-28-5540omkwblnmb bicarb-citric acid (EFFER-K) effervescent tablet 40 mEq valproate (DEPACON) 500 mg in dextrose 5 % 100 mL IVPB (1 source)Start: 10-13-2019 End: 98-99-5566upopazjpr (DEPACON) 500 mg in dextrose 5 % 100 mL IVPB Problems Active Problems Problem ClassificationProblemDateDocumented DateEpisodic/ChronicAllergic reactions (4 sources)Atopic dermatitis; Translations: [Other atopic dermatitis]01-16-2024 ChronicAortic; peripheral; and visceral artery aneurysms (3 sources)Abdominal aortic aneurysm without rupture; Translations: [Aneurysm of infrarenal abdominal aorta ]Onset: 626440-75-5146VjqszfuRzlxely dysrhythmias (2 sources)Paroxysmal atrial fibrillation; Translations: [Paroxysmal atrial fibrillation]Onset: 36-98-2656GwqnugcWcemjtkzgf associated with dizziness or vertigo (6 sources)Dizziness and giddiness; Translations: [Vertigo]Onset: 06-27-2017 EpisodicCongestive heart failure; nonhypertensive (6 sources)Chronic diastolic (congestive) heart failure; Translations: [Acute combined systolic (congestive) and diastolic (congestive) heart failure]Onset: 45-33-7562WjqvihcOtohgxyr atherosclerosis and other heart disease (2 sources)Atherosclerotic heart disease of [place] coronary artery without angina pectoris; Translations: [Atherosclerotic heart disease of [place] coronary artery without angina pectoris]Onset: 05-05-4789WifmcheTvadiksn mellitus without complication (6 sources)Diabetes mellitus; Translations: [Type 2 diabetes mellitus without complications]Onset: 253029-51-6054CdugxifVdpxnzfjx of lipid metabolism (9 sources)Hyperlipidemia; Translations: [Hyperlipidemia, unspecified]Onset: 029622-74-1104DevbxofZxnenrzrg hypertension (4 sources)Hypertensive disorder; Translations: [Essential (primary) hypertension]92-04-6632DzxktkhGdcly and electrolyte disorders (2 sources)Hypokalemia; Translations: [Hypokalemia]Onset: EpisodicHeadache; including migraine (2 sources)Headache; Translations: [Acute intractable headache]10-10-2019 EpisodicHypertension with complications and secondary hypertension (8 sources)Hypertensive urgency ; Translations: [Secondary hypertension]Onset: 885110-36-7327FivxqqoFembro and vomiting (1 source)Nausea and vomiting; Translations: [Nausea and vomiting, intractability of vomiting not specified, unspecified vomiting type]Episodic Nutritional deficiencies (2 sources)Malnutrition (calorie); Translations: [Moderate malnutrition (HCC)] Onset: 152794-90-4073YxlhsmwIadkz aftercare (2 sources)Taking high risk medication; Translations: [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]05-47-0767CooxljguBvztv circulatory disease (2 sources)Celiac artery compression syndrome; Translations: [Celiac artery compression syndrome]Onset: 96-64-1824RlkzhrpXvams connective tissue disease (3 sources)Hand pain; Translations: [Pain in right hand]05-70-1743DxfynvunSsgyo connective tissue disease (8 sources)Triggering of digit; Translations: [Trigger finger, right middle finger]09-24-5972PypvrjhnSnkxm connective tissue disease (3 sources)Trigger finger, right middle finger; Translations: [Trigger finger (acquired)]82-86-6031AdarrcfnTcaio connective tissue disease (3 sources)Trigger finger, right ring finger; Translations: [Trigger finger (acquired)]40-07-9406DthjadejLysap connective tissue disease (1 source)Pain in right hand; Translations: [Pain in right hand]04-07-2023 EpisodicOther nervous system disorders (1 source)Pain in limb; Translations: [Other acute postprocedural pain] 13-44-3882HchrxnooTrtjxxbvnf and visceral atherosclerosis (2 sources)Chronic vascular disorders of intestine; Translations: [Chronic vascular disorders of intestine]Onset: 50-40-7011UhzqbfpNmreihunwx and visceral atherosclerosis (2 sources)Stenosis of right renal artery; Translations: [Right renal artery stenosis (HCC)]Onset: 489958-41-6676Jeszhsvd codes; unclassified (1 source)Postprocedural state finding; Translations: [Other specified postprocedural states]42-01-4421XjxpqnpnPxxljgrtilb; intervertebral disc disorders; other back problems (1 source)Acute low back pain; Translations: [Acute low back pain, unspecified back pain laterality, unspecified whether sciatica present]EpisodicSyncope (4 sources)Syncope and collapse; Translations: [SYNCOPE AND COLLAPSE]Onset: 41-42-7100ZtmgbqvsKikggdziwdos (1 source)Hypertensive urgency; Translations: [Hypertensive urgency]Onset: 97-36-9007Hnmswtqgrqct (3 sources)COUGH, UNSPECIFIED; Translations: [COUGH, UNSPECIFIED]Onset: 68-89-1835Dkccbhnraybq (1 source)CONTACT W/AND (SUSP) EXPOS COVID-19; Translations: [CONTACT W/AND (SUSP) EXPOS COVID-19]Onset: 67-06-4901Snpqqsbsccxx (1 source)Infrarenal abdominal aortic aneurysm, without rupture; Translations: [Infrarenal abdominal aortic aneurysm, without rupture]Onset: 01-27-2024 Unclassified (1 source)Other ventricular tachycardia; Translations: [Other ventricular tachycardia]Onset: 87-54-8675Nzwmbvaabymo (1 source)Ventricular tachycardia, unspecified; Translations: [Ventricular tachycardia, unspecified]Onset: 74-24-1667Rapsrchaiycn (1 source)Abdominal aortic aneurysm, without rupture, unspecified; Translations: [Abdominal aortic aneurysm, without rupture, unspecified]Onset: 01-27-2024 Past or Other Problems Problem ClassificationProblemDateDocumented DateEpisodic/ChronicAcute and unspecified renal failure (2 sources)Acute kidney failure, unspecified; Translations: [Acute kidney failure, unspecified]Onset: 53-21-1429SjvbvhnrZsugpne tract disease (2 sources)Calculus of gallbladder without cholecystitis without obstruction; Translations: [Calculus of gallbladder without cholecystitis without obstruction]Onset: 74-46-1399JiphmxywHdhsrwa dysrhythmias (2 sources)Palpitations; Translations: [Palpitations]Onset: EpisodicGenitourinary symptoms and ill-defined conditions (2 sources)Hesitancy of micturition; Translations: [Hesitancy of micturition] Onset: 10-69-3075BnxadgapXucaclv and fatigue (2 sources)Weakness; Translations: [Weakness]Onset: 46-71-0808XmtbhwzvNgknq aftercare (2 sources)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; Translations: [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]Onset: 01-36-6192DewgoootZiuiw gastrointestinal disorders (2 sources)Constipation, unspecified; Translations: [Constipation, unspecified] Onset: 33-76-8151SygurrvkWxtyk lower respiratory disease (2 sources)Other forms of dyspnea; Translations: [Other forms of dyspnea]Onset: 50-32-0941UdabrqrlIkrmw nervous system disorders (2 sources)Other acute postprocedural pain; Translations: [Other acute postprocedural pain]Onset: 80-52-1793HhstexaiDqmuhofwfjiq (1 source)COUGH, UNSPECIFIED; Translations: [COUGH, UNSPECIFIED]Onset: 96-25-2716Sjddyivnklko (1 source)Infrarenal abdominal aortic aneurysm, without rupture; Translations: [Infrarenal abdominal aortic aneurysm, without rupture]Onset: 07-22-2024 Unclassified (1 source)Other ventricular tachycardia; Translations: [Other ventricular tachycardia]Onset: 57-44-2987Ssnwiwxkqqec (1 source)Ventricular tachycardia, unspecified; Translations: [Ventricular tachycardia, unspecified]Onset: 87-71-1701Jgjkjqltphzj (1 source)Abdominal aortic aneurysm, without rupture, unspecified; Translations: [Abdominal aortic aneurysm, without rupture, unspecified]Onset: 01-27-2024 Results Test NameValueInterpretationReference RangeFacilityUrine Cultureon 12-29-2024 Bacteria identified Cx Nom (U)<9,000 colonies/ml mixed bacterial skin contaminants 2 Days PERFORMED BY: [facility] [address] [place] [address] PATHOLOGIST TRACING LATHE SET UP OPERATOR ISAI DASH M.D.NormalThe Community Health Physician GroupComment on above: Performed By: #### CUU #### [facility] [address] [id number] ZUW45eb 85-76-150993BnjitlGygbnnzzks of [facility] 36Spoke with patient and she was currently in the car and not able to check her BP and HR. Asked her to call me back later today when she gets home and checks those. Patient agreed to do so.NormalUnCleveland Clinic South Pointe Hospital36on 75-96-582820FgbtaiMtogsflmgt of [facility] Xluiwi35jk 00-06-689866Kqvlgz [facility] HospitalBASIC METABOLIC PANELon 04-02-3726Yrbxt gap [Moles/Vol]11 mmol/LNormal7-20UnCleveland Clinic South Pointe HospitalComment on above:Performed By: #### [id number] ####[facility] HOSP[facility] LAB (BEAKER)[address] [place], [place] [address]Vdwgbav [Mass/Vol]8.6 mg/dLNormal8.6-10.3UnCleveland Clinic South Pointe HospitalComment on above:Performed By: #### [id number] ####[facility] ([facility])[address] [place] [address]Pluyglrr [Moles/Vol]107 mmol/LNormal 98-107UnCleveland Clinic South Pointe HospitalComment on above:Performed By: #### [id number] ####[facility] ([facility])[address] [place] [address]QO7 [Moles/Vol]26 mmol/GTqjwje71-51XaoeednmyhCleveland Clinic South Pointe HospitalComment on above:Performed By: #### [id number] ####[facility] ([facility])[address] [place] [address]Ajlccqqkbr [Mass/Vol]1.28 mg/dLHigh0.60-1.20UnCleveland Clinic South Pointe HospitalComment on above:Performed By: #### [id number] ####[facility] ([facility])[address] [place], [place] [address]VFIIGOIVVU FILTRATION RATE ML/MIN/1.73 SQ M.WZIJSWQTN58.1 mL/min/1.73m*2Low>60.0UnCleveland Clinic South Pointe HospitalComment on above:Result Comment: [facility]???s estimated glomerular filtration rate (eGFR) will [...] anyone group of individuals.Performed By: #### [id number] ####[facility] ([facility])[address] [place] [address]Oqtvfds [Mass/Vol]81 mg/dAWatrzj48-882CmsekhcuabCleveland Clinic South Pointe HospitalComment on above:Performed By: #### [id number] ####[facility] ([facility])[address] [place] [address]Kvjgnsbde [Moles/Vol]4.5 mmol/LNormal3.5-5.1UnCleveland Clinic South Pointe HospitalComment on above:Performed By: #### [id number] ####[facility] ([facility])[address] [place] [address]Xouejv [Moles/Vol]139 mmol/L Mombwq208-823YpxacrpxuzCleveland Clinic South Pointe HospitalComment on above:Performed By: #### [id number] ####[facility] ([facility])[address] [place] [address]Ddpm nitrogen [Mass/Vol]26 mg/dLHigh7-25UnCleveland Clinic South Pointe HospitalComment on above:Performed By: #### [id number] ####[facility] ([facility])[address] [place], [place] [address]KKFY NITROGEN/CREATININE (MASS RATIO) IN SER/PLAS20.3Normal [facility] Community HospitalComment on above:Performed By: #### [id number] ####[facility] ([facility])[address] [place] [address]NYAOJVG, IONIZED on 32-10-4803UKEJOVS IONIZED (MMOL/L) IN BLOOD1.00 mmol/LLow1.15-1.33UnCleveland Clinic South Pointe HospitalComment on above:Performed By: #### [id number] ####[facility] RESPIRATORY [id number] [place] [address] USACBCon 08-27-2024 Erythrocyte distribution width (RBC) [Ratio]17.6 %High11.5-15.0UnCleveland Clinic South Pointe HospitalComment on above:Performed By: #### [id number] ####[facility] ([facility])[address] [place], [place] [address]XUPEOZOCUVZ MEAN CORPUSCULAR HEMOGLOBIN CONCENTRATION (G/DL) BY LPVXUQESX60.6 g/dLLow32.0-35.0 [facility] HospitalComment on above:Performed By: #### [id number] ####[facility] (BEAKER)[address] [place] [address]Bfxtmvhlya (Bld) [Volume fraction]40.9 %Letqqz86.0-45.0UnCleveland Clinic South Pointe Hospital Comment on above:Performed By: #### [id number] ####[facility] (AKER)[address] [place] [address]Zuclpxtonc (Bld) [Mass/Vol]12.1 g/oOSyzbmn00.0-15.0 [facility] HospitalComment on above:Performed By: #### [id number] ####[facility] ([facility])[address] [place] [address]WZS (RBC) [Entitic mass]29.7 tqLheiwk19.0-33.0UnCleveland Clinic South Pointe HospitalComment on above:Performed By: #### [id number] ####[facility] ([facility])[address] [place] [address]ZGJ (RBC) [Entitic vol]100.2 iVYjpb02.0-98.0UnCleveland Clinic South Pointe HospitalComment on above:Performed By: #### [id number] ####[facility] ([facility])[address] [place] [address]IISJHMPZO (10*3/UL) IN BLOOD AUTOMATED QOYPF929 10*3/fUCrysld700-348HzyackowowCleveland Clinic South Pointe Hospital Comment on above:Performed By: #### [id number] ####[facility] ([facility])[address] [place] [address]KRE (Bld) [#/Vol]4.08 10*6/uLNormal3.80-5.00 [facility] HospitalComment on above:Performed By: #### [id number] ####[facility] ([facility])[address] [place] [address]YZQ (Bld) [#/Vol]7.20 10*3/uLNormal4.00-10.60UnCleveland Clinic South Pointe HospitalComment on above:Performed By: #### [id number] ####[facility] (BEAKER)[address] [place] [address]VSLNZXTbb 40-71-8095NYTYOAVFudlydLgallimyql [facility]icothe HospitalDSon 12-26-9696EHRiniqfHesuzfkwof [facility] HospitalMAGNESIUMon 84-98-8898Betjzwuxz [Mass/Vol]3.0 mg/dLHigh1.9-2.7UnCleveland Clinic South Pointe HospitalComment on above:Performed By: #### [id number] ####[facility] (BEAKER)[address] [place] [address]Crdfpi Onlyon 53-13-0710Taqils Only [id number] Shayy Maynard 1945 F Date Provider Department Center 08/27/2024 [address]-GLKBLIBIA KEATING HVCVASENDUsman [place] Heart[facility]AS No family history on fileNormalUniversCleveland Clinic Marymount HospitalPHOSPHORUSon 47-13-1208Rczffuhdk [Mass/Vol]3.9 mg/dLNormal2.5-5.0UnCleveland Clinic South Pointe HospitalComment on above:Performed By: #### [id number] ####[facility] (BEAKER)[address] [place] [address]26pt 87-44-995093FnoahkSezzesmrgk of [facility] Medical CenterANESon 72-43-4804FMGHKrjyxeJbdizyetft [facility] HospitalANESNormalUniversity [facility]othe HospitalBASIC METABOLIC PANELon 68-29-3755Mrrbw gap [Moles/Vol]12 mmol/LNormal7-20UnCleveland Clinic South Pointe HospitalComment on above:Performed By: #### [id number] ####[facility] (BEAKER)[address] [place] [address]Fjhmcui [Mass/Vol]8.9 mg/dLNormal 8.6-10.3UnCleveland Clinic South Pointe HospitalComment on above:Performed By: #### [id number] ####[facility] HOSPITAL LAB (BEAKER)[address] [place] [address]Ndmsqwjz [Moles/Vol]106 mmol/OShmspk38-761MzmwvjrezrCleveland Clinic South Pointe HospitalComment on above:Performed By: #### [id number] ####[facility] ([facility])[address] [place] [address]AP0 [Moles/Vol]28 mmol/FCzzhvf15-56JrhcosroscCleveland Clinic South Pointe HospitalComment on above:Performed By: #### [id number] ####[facility] ([facility])[address] [place] [address]Inmknabxcj [Mass/Vol]1.27 mg/dLHigh 0.60-1.20UnCleveland Clinic South Pointe HospitalComment on above:Performed By: #### LAB15 ####[facility] ([facility])[address] [place] [address]DOLFHJGOLT FILTRATION RATE ML/MIN/1.73 SQ M.CJZWXAWET92.5 mL/min/1.73m*2Low>60.0UnCleveland Clinic South Pointe HospitalComment on above:Result Comment: [facility]???s estimated glomerular filtration rate (eGFR) will [...] group of individuals. Performed By: #### [id number] ####[facility] ([facility])[address] [place] [address]Thqmojy [Mass/Vol]101 mg/fWQwxt97-941PprtsbnsguCleveland Clinic South Pointe HospitalComment on above:Performed By: #### LAB15 ####[facility] ([facility])[address] [place] [address]Kjjhlqynk [Moles/Vol]4.5 mmol/LNormal 3.5-5.1UnCleveland Clinic South Pointe HospitalComment on above:Performed By: #### [id number] ####[facility] (BEAKER)[address] [place] [address]Bezclg [Moles/Vol]141 mmol/YVwalcz308-648RrmcddcjycCleveland Clinic South Pointe HospitalComment on above:Performed By: #### [id number] ####[facility] ([facility])[address] [place] [address]Fbfq nitrogen [Mass/Vol]25 mg/dLNormal7-25UnCleveland Clinic South Pointe HospitalComment on above:Performed By: #### [id number] ####[facility] ([facility])[address] [place] [address]WDRR NITROGEN/CREATININE (MASS RATIO) IN SER/PLAS19.7NormalUniversCleveland Clinic Marymount HospitalComment on above: Performed By: #### [id number] ####[facility] ([facility])[address] [place] [address]PCQrr 28-40-2534Whkpznpkmai distribution width (RBC) [Ratio]17.0 %High 11.5-15.0UnCleveland Clinic South Pointe HospitalComment on above:Performed By: #### [id number] ####[facility] ([facility])[address] [place] [address] ERYTHROCYTE MEAN CORPUSCULAR HEMOGLOBIN CONCENTRATION (G/DL) BY RQNCFSHPA72.6 g/dLLow32.0-35.0UnCleveland Clinic South Pointe HospitalComment on above:Performed By: #### [id number] ####[facility] ([facility])[address] [place] [address] Hematocrit (Bld) [Volume fraction]39.6 %Alwgyq86.0-45.0UnCleveland Clinic South Pointe HospitalComment on above:Performed By: #### [id number] ####[facility] ([facility])[address] [place], [place] [address]Xwxinlprwy (Bld) [Mass/Vol]12.5 g/dL Pmulyb25.0-15.0UnCleveland Clinic South Pointe HospitalComment on above:Performed By: #### [id number] ####[facility] (BEAKER)[address] [place], [place] [address]BLC (RBC) [Entitic mass]29.5 ixBmzfxr03.0-33.0UnCleveland Clinic South Pointe Hospital Comment on above:Performed By: #### [id number] ####[facility] ([facility])[address] [place] [address]MJG (RBC) [Entitic vol]93.4 pDWxjhcd35.0-98.0 [facility] HospitalComment on above:Performed By: #### [id number] ####[facility] ([facility])[address] [place] [address]NITJWJYDL (10*3/UL) IN BLOOD AUTOMATED WWKZW914 10*3/oJJtxxdr805-151OqfulhtxsnCleveland Clinic South Pointe HospitalComment on above:Performed By: #### [id number] ####[facility] ([facility])[address] [place] [address]ILZ (Bld) [#/Vol]4.24 10*6/uLNormal 3.80-5.00UnCleveland Clinic South Pointe HospitalComment on above:Performed By: #### [id number] ####[facility] ([facility])[address] [place] [address]DHM (Bld) [#/Vol]10.20 10*3/uLNormal4.00-10.60UnCleveland Clinic South Pointe HospitalComment on above:Performed By: #### [id number] ####[facility] ([facility])[address] [place] [address]RXQBQAWvu 36-80-5702SOXTGCBVyogyqClgfgafxcu of [facility] Medical CenterCTA ABDOMEN PELVIS W IV CONTRASTon 35-03-6929RRQ ABDOMEN PELVIS W IV CONTRASTNormalUniversCleveland Clinic Marymount HospitalCTA CHEST W IV CONTRASTon 33-85-3085FLH CHEST W IV CONTRASTNormalUniversCleveland Clinic Marymount HospitalHIGH SENSITIVITY TROPONIN Ion 09-93-1535FM TROPONIN I (NG/L)18 ng/LHigh<15UnCleveland Clinic South Pointe HospitalComment on above:Performed By: #### [id number] ####[facility] ([facility])[address] [place] [address]MBaj 31-78-0145AMIhusop [facility]ike Community HospitalLACTIC ACID WITH 4 HOUR REFLEXon 08-26-2024 LACTATE (MMOL/L) IN SER/PLAS0.8 mmol/LNormal0.5-2.2UnCleveland Clinic South Pointe HospitalComment on above:Performed By: #### [id number] ####[facility] ([facility])[address] [place] [address]GSXRZVVPFgq 93-80-2430Lqmnfedns [Mass/Vol]2.0 mg/dLNormal1.9-2.7UnCleveland Clinic South Pointe HospitalComment on above:Performed By: #### [id number] ####[facility] ([facility])[address] [place] [address]GYRDJERWib 58-14-2815HETTJJKGNyeupf was called to Milagro MELGAR. Questions answered. No further issues or concerns. Property Worker also called and updated the Deroy on pt room number the tire service supervisor nurse and current status of the pt. He verbalized understanding [facility] CenterNURSNOTEPREOPERATIVE DOPPLERS BOTH PT AND DP MARKED AND DOPPLERABLE IN BILATERAL FEET.[facility] CenterNURSNOTEPt was given call light and family brought to bedside. RN called anesthesia about high bp will be around soon.[facility] NURSNOTEPt stated her knew the meds she took, rn spoke to who was unsure about when the last time she took some of her meds was. Knows she didn't take any today and hasn't had the blood thinner in [address] [facility] CenterNURSNOTEPCT took pt to restroom then wheeled her to bay 5. Pt was instructed to remove all belongings and put gown on.NormalPike Community HospitalOPNOTEon 41-41-7052OOVLKFYmbwmuKtuxuklfqt [facility]othe HospitalPOCT GLUCOSE METER UNSOLICITED RESULTSon 90-86-7024Gqrnhib [Mass/Vol]96 mg/sPGmnugp61-516GzubpspfbuCleveland Clinic South Pointe HospitalComment on above:Order Comment: Waived Testing in the ED is performed under the ED CLIA certificate #[id number].Result Comment: laurita Performed By: #### [id number] ####[facility] (SHERON)[address] [place], [place] [address]DEHYAHT-HDGhc 95-58-5847UBC IN PPP BY COAGULATION ASSAY1.01 Normal0.90-1.10UnCleveland Clinic South Pointe HospitalComment on above:Result Comment: ACC[facility] RECOMMENDED INR FOR WARFARIN THERAPY CONDITION INRPROPHYLAXIS OF VENOUS THROMBOSIS 2-3(HIGH-RISK SURGERY)TREATMENT OF VENOUS THROMBOSIS 2-3TREATMENT OF PULMONARY EMBOLISM 2-3PREVENTION OF SYSTEMIC EMBOLISM: 2-3 ACUTE MYOCARDIAL INFARCTION TISSUE HEART VALVES VALVULAR HEART DISEASE ATRIAL FIBRILLATION RECURRENT SYSTEMIC EMBOLISMMECHANICAL HEART VALVE 2.5-3.5 FROM: ORAL ANTICOAGULANTS. MECHANISM OF ACTION, CLINICAL EFFECTIVENESS, AND OPTIMAL THERAPE UTIC RANGE. CHEST 1995;108:231S-246S.Performed By: #### [id number] ####[facility] (SHERON)[address] [place], [place] [address]KTLQPZUXJBM TIME (PT) IN PPP BY COAGULATION ASSAY13.3 ZvlqajvHggptz12.3-14.8UnCleveland Clinic South Pointe HospitalComment on above:Performed By: #### [id number] ####[facility] (SHERON)[address] [place], [place] [address]LJCB AND SCREENon 58-32-3964UV SCREEN NegativeNormalUniversity Chillicothe HospitalComment on above:Performed By: #### [id number] ####[facility] BLOOD [facility],ABO group Nom (Bld)ONSouthern [place] Medical CenterComment on above:Performed By: #### [id number] ####[facility],RH TYPE IN BLOODPositiveNoalUniZanesville City HospitalComment on above: Performed By: #### [id number] ####[facility],Orders Onlyon 31-62-5755Zzucpe [id number] Alex,Shayy A 1945 F Date Provider Department Center 08/23/2024 [address]75[address]-NOQFBBRIANNA GARCIA [facility] PAC [place] [facility] No family history on fileNormalUniZanesville City HospitalOrders Onlyon 91-43-8911Cfvrjs [id number] Earnest Maynarda A 1945 F Date Provider Department Center 08/18/2024 FORREST BOONE HVCVASENDO [place] Heart[facility] No family history on fileNormalUniZanesville City HospitalUrine Culture on 68-23-2968Xujatvji identified Cx Nom (U)<9,000 colonies/ml mixed bacterial skin contaminants 2 Days PERFORMED BY: [place] [address] PATHOLOGIST TRACING LATHE SET UP OPERATOR ISAI DASH M.D.NormalThe Community Health Physician GroupComment on above: Performed By: #### CUU #### [facility] [address] [place] [address] HSK47ar 31-82-093707Sksdgb and left a message for patient to call the [facility] to [facility] LivonianiZanesville City Hospital Documentationon [id number] Earnest Maynarda A 1945 F Date Provider Department Center 08/05/2024 [id number]-QAIXHDTJAIME GARCIA [facility] No family history on [facility] SystemFollow-Upon 06-60-4501Mbbfka-UpNormalUniversuniversity hospitals [facility] of [facility] Community HospitalOrders Onlyon 90-58-6284Xyqetc [id number] Shayy Maynard 1945 F Date Provider Department Center 08/02/2024 928-ALKA, VIKTOR COLEMAN [facility] No family history on fileNormalUniversity of Faith Community HospitalOrders Onlyon 87-94-2336Zevkom [id number] Shayy Maynard A 1945 F Date Provider Department Center 07/27/2024 U4968-DCEORRTF, HISTORICAL COLEMAN [facility] No family history on fileNormalUniversuniversity hospitals [facility] of [facility] Community HospitalALTon 07-43-9298SWH [Catalytic activity/Vol]10 U/LNormal7-52UnCleveland Clinic South Pointe HospitalComment on above:Performed By: #### [id number] ####[facility] ([facility])[address] [place], [place] [address]EIJgo 35-81-6530DVQ [Catalytic activity/Vol]14 U/JMuwsha88-34ErwdxidywcCleveland Clinic South Pointe HospitalComment on above:Performed By: #### [id number] ####[facility] ([facility])[address] [place], [place] [address]FFBRQCSMMW, SERUMon 90-01-3998Hwznpuffzm [Mass/Vol]1.15 mg/dL Normal0.60-1.20UnCleveland Clinic South Pointe HospitalComment on above:Performed By: #### [id number] ####[facility] ([facility])[address] [place] [address] GLOMERULAR FILTRATION RATE ML/MIN/1.73 SQ M.BCUNKMMOL05.9 mL/min/1.73m*2Low>60.0 [facility] HospitalComment on above:Result Comment: [facility]???s estimated glomerular filtration rate (eG FR) [...] anyone group of individuals. Performed By: #### [id number] ####[facility] ([facility])[address] [place], [place] [address]IAL ABDOMEN PELVIS W IV CONTRASTon 06-62-3099DNW ABDOMEN PELVIS W IV CONTRASTInvalid Interpretation CodeUnCleveland Clinic South Pointe HospitalLIPID PANELon 54-54-4754DXNY/HDL4.8 mg/dLNormalUniversCleveland Clinic Marymount HospitalComment on above:Performed By: #### [id number] ####[facility] ([facility])[address] [place] [address]Uuwfccopdwy [Mass/Vol]217 mg/dLHigh 120-200UnCleveland Clinic South Pointe HospitalComment on above:Performed By: #### [id number] ####[facility] ([facility])[address] [place], [place] [address]Tanqovoai [Mass/Vol]170 mg/dLHigh<150UnCleveland Clinic South Pointe HospitalComment on above: Result Comment: TRIGLYCERIDE REFERENCE RANGE:20 YEARS AND OLDER CARDIOVASCULAR RISKLESS THAN 150 mg/dL LOW GCIW140 TO 199 mg/dL BORDERLINE FMNA519 mg/dL AND GREATER HIGH RISKPerformed By: #### [id number] ####[facility] ([facility])[address] [place], [place] [address]Sznrpsiji [Mass/Vol]138 mg/dLNormal0-160UnCleveland Clinic South Pointe HospitalComment on above:Performed By: #### [id number] ####[facility] ([facility])[address] [place], [place] [address]Ablunjyyn [Mass/Vol]45 mg/aDCzrvys06-99ChvzpgudscCleveland Clinic South Pointe HospitalComment on above:Performed By: #### [id number] ####[facility] ([facility])[address] [address] NON HDL CHOL. (LDL+VLDL)172NormalUniversCleveland Clinic Marymount HospitalComment on above:Performed By: #### [id number] ####[facility] ([facility])[address] [place] [address]JZXKZ VLDL-C34 mg/dLNormal0-40UnCleveland Clinic South Pointe HospitalComment on above:Performed By: #### [id number] ####[facility] ([facility])[address] [place] [address]Rvkqo [id number] Shayy Maynard 1945 F Date Provider Department [place] 07/22/2024 2245-[facility] OPD LAB RESOURCE [facility] OPD [facility] C No family history on fileNormalUniversCleveland Clinic Marymount Hospital36on 59-21-087405Rmrh message for pt to return call to schedule [address] Whitten.NormalUnCleveland Clinic South Pointe Hospital37on 784610-Mhcoks call radiology at [phone] to schedule testing (CTA abdomen and pelvis) to be done before your next appointmentNormalUniversCleveland Clinic Marymount HospitalFollow-Upon 80-66-8858Amryst-UpNormalUniversCleveland Clinic Marymount HospitalBASIC METABOLIC PANELon 90-24-6280Nuzqo gap [Moles/Vol]14 mmol/LNormal7-20 [facility] HospitalComment on above:Performed By: #### [id number] ####[facility] ([facility])[address] [place] [address]Gbtwrcv [Mass/Vol]9.1 mg/dLNormal8.6-10.3UnCleveland Clinic South Pointe HospitalComment on above:Performed By: #### LAB15 ####[facility] ([facility])[address] [place] [address]Apnybocf [Moles/Vol]105 mmol/KZvoczg36-974ZgqrxrkvkiCleveland Clinic South Pointe HospitalComment on above:Performed By: #### LAB15 ####[facility] ([facility])[address] [place] [address]AT1 [Moles/Vol]27 mmol/LNormal 21-31UnCleveland Clinic South Pointe HospitalComment on above:Performed By: #### LAB15 ####[facility] ([facility])[address] [place] [address]Dukzftckcl [Mass/Vol]1.32 mg/dLHigh0.60-1.20UnCleveland Clinic South Pointe HospitalComment on above:Performed By: #### LAB15 ####[facility] ([facility])[address] [place] [address]FQKXNAAHTZ FILTRATION RATE ML/MIN/1.73 SQ M.ADAXMTGZK00.8 mL/min/1.73m*2Low>60.0UnCleveland Clinic South Pointe HospitalComment on above:Result Comment: [facility]???s estimated glomerular filtration rate (eGFR) will [...] anyone group of individuals.Performed By: #### LAB15 ####[facility] ([facility])[address] [place] [address]Orzchts [Mass/Vol]94 mg/qHXhftch06-738SgesyjisfqCleveland Clinic South Pointe HospitalComment on above:Performed By: #### LAB15 ####[facility] ([facility])[address] [place] [address]Dphlnfvuu [Moles/Vol]3.8 mmol/LNormal3.5-5.1UnCleveland Clinic South Pointe HospitalComment on above:Performed By: #### [id number] ####[facility] ([facility])[address] [place] [address] Sodium [Moles/Vol]142 mmol/WGycwzv157-020VsylsgsfzlCleveland Clinic South Pointe Hospital Comment on above:Performed By: #### [id number] ####[facility] ([facility])[address] [place], [place] [address]Olbz nitrogen [Mass/Vol]28 mg/dLHigh7-25UnCleveland Clinic South Pointe HospitalComment on above:Performed By: #### [id number] ####[facility] ([facility])[address] [place] [address]DMSP NITROGEN/CREATININE (MASS RATIO) IN SER/PLAS21.2NormalUnCleveland Clinic South Pointe HospitalComment on above:Performed By: #### [id number] ####[facility] ([facility])[address] [place] [address]QWIse 27-12-7322Aarfguuylmt distribution width (RBC) [Ratio] 16.2 %High11.5-15.0UnCleveland Clinic South Pointe HospitalComment on above:Performed By: #### [id number] ####[facility] ([facility])[address] [place], [place] [address]JNELSSRFHTN MEAN CORPUSCULAR HEMOGLOBIN CONCENTRATION (G/DL) BY AUTOMATED 30.9 g/dLLow32.0-35.0UnCleveland Clinic South Pointe HospitalComment on above: Performed By: #### [id number] ####[facility] ([facility])[address] [place], [place] [address]Lzsjscbugh (Bld) [Volume fraction]34.3 %Low36.0-45.0 [facility] HospitalComment on above:Performed By: #### [id number] ####[facility] ([facility])[address] [place], [place] [address]Mozszemqqc (Bld) [Mass/Vol]10.6 g/dLLow12.0-15.0UnCleveland Clinic South Pointe HospitalComment on above:Performed By: #### [id number] ####[facility] ([facility])[address] [place], [place] [address]NQV (RBC) [Entitic mass]28.4 cpZsqgpg78.0-33.0UnCleveland Clinic South Pointe HospitalComment on above:Performed By: #### [id number] ####[facility] ([facility])[address] [place], [place] [address]ZFR (RBC) [Entitic vol] 92.0 pNRualms09.0-98.0UnCleveland Clinic South Pointe HospitalComment on above: Performed By: #### [id number] ####[facility] ([facility])[address] [place] [address]TKEAWLIBE (10*3/UL) IN BLOOD AUTOMATED [id number] 10*3/uLNormal 150-400UnCleveland Clinic South Pointe HospitalComment on above:Performed By: #### [id number] ####[facility] ([facility])[address] [place] [address]XML (Bld) [#/Vol]3.73 10*6/uLLow3.80-5.00UnCleveland Clinic South Pointe HospitalComment on above:Performed By: #### [id number] ####[facility] ([facility])[address] [place] [address]DLL (Bld) [#/Vol]8.95 10*3/uLNormal4.00-10.60UnCleveland Clinic South Pointe HospitalComment on above:Performed By: #### [id number] ####[facility] ([facility])[address] [place] [address]WHYESSSMDG, URINE, RANDOM on 59-67-1977Edkkvjbfic (U) [Mass/Vol]115.0 mg/bQDsitkv99-468JgcmxwuomvCleveland Clinic South Pointe HospitalComment on above:Performed By: #### [id number] ####[facility] ([facility])[address] [place] [address]Znlyisdrd By: #### [id number] ####[facility] ([facility])[address] [place] [address]Bavpum-Bhhb 21-14-4976Gakiwq-UpNormalUniversity Chillicothe HospitalLabon 18-36-1836Qog [id number] Shayy Maynard 1945 F Date Provider Department Center 05/11/20242241-[facility] RESOURCE [facility] Comprehensiv No family history on fileNormalUniversCleveland Clinic Marymount HospitalMICROALBUMIN, URINE, RANDOMon 68-88-1122Uauzvgj DL <= 20 mg/L (U) [Mass/Vol]1.8 mg/dLNormal [facility] HospitalComment on above:Performed By: #### [id number] ####[facility] ([facility])[address] [place] [address] MICROALBUMIN/CREATININE (MG/G) IN URINE15.7 mg/g CreatNormal0.0-30.0UnCleveland Clinic South Pointe HospitalComment on above:Performed By: #### [id number] ####[facility] ([facility])[address] [place], [place] [address]XBFTUMS, URINE, RANDOMon 29-83-0146Tffyaho (U) [Mass/Vol]30.2 mg/dLNoalUniZanesville City HospitalComment on above:Result Comment: There are no established reference values for random urine specimens.Performed By: #### [id number] ####[facility] ([facility])[address] [place], [place] [address]PDFMXMHRHTmw 23-22-5824TKWOBOORO, TOTAL PRESENCE IN URINENegativeNoecu healthNegativeUnCleveland Clinic South Pointe Hospital Comment on above:Performed By: #### [id number] ####[facility] ([facility])[address] [place], [place] [address]Ynyzxbl (U)ClearNormalClearUnCleveland Clinic South Pointe HospitalComment on above:Performed By: #### [id number] ####[facility] ([facility])[address] [place], [place] [address]Nltxa (U)Light-YellowNormalColorless, Yellow, Light-YellowUnCleveland Clinic South Pointe HospitalComment on above: Performed By: #### [id number] ####[facility] ([facility])[address] [place], [place] [address]FMXLWSY (MG/DL) IN URINENormalNormnmNormalUniZanesville City HospitalComment on above:Performed By: #### [id number] ####[facility] ([facility])[address] [place], [place] [address]CBFWYAVINX PRESENCE IN URINENegativeNormalNegativePike Community HospitalComment on above: Performed By: #### [id number] ####[facility] ([facility])[address] [place], [place] [address]Kuqzsfi Ql (U)NegativeNormalNegativeUnCleveland Clinic South Pointe HospitalComment on above:Performed By: #### [id number] ####[facility] ([facility])[address] [place], [place] [address]XBBMYQMZF ESTERASE PRESENCE IN URINE BY TEST STRIPSmallAbnormalNegativeUnCleveland Clinic South Pointe HospitalComment on above:Performed By: #### [id number] ####[facility] ([facility])[address] [place], [place] [address]IVVCBIB PRESENCE IN URINENegativeNormalNegativeUnCleveland Clinic South Pointe HospitalComment on above:Performed By: #### [id number] ####[facility] ([facility])[address] [place], [place] [address]oZ (U)5.5 [pH]Normal 5.0-8.0UnCleveland Clinic South Pointe HospitalComment on above:Performed By: #### [id number] ####[facility] ([facility])[address] [place], [place] [address]Iclurnu (U) [Mass/Vol]NegativeNormalNegativeUnCleveland Clinic South Pointe HospitalComment on above:Performed By: #### [id number] ####[facility] ([facility])[address] [place], [place] [address]Hddmgnci gravity (U) [Rel density]1.862Diwdpg5.010-1.030 [facility] HospitalComment on above:Performed By: #### [id number] ####[facility] ([facility])[address] [place], [place] [address]TNRHRTZUOTUP (MG/DL) IN URINENormalNormalNormalUniversCleveland Clinic Marymount HospitalComment on above:Performed By: #### [id number] ####[facility] ([facility])[address] [place], [place] [address]MWMLIJZXAM MICROSCOPICon 16-23-1111UFU (#/HPF) IN URINE SEDIMENT0-2NormalNone Seen, 0-2UnCleveland Clinic South Pointe HospitalComment on above:Performed By: #### [id number] ####[facility] ([facility])[address] [place], [place] [address]OUJGPRSW EPITHELIAL CELLS (#/LPF) IN URINE SEDIMENTFewNormal None Seen, Occasional, FewUnCleveland Clinic South Pointe HospitalComment on above: Performed By: #### [id number] ####[facility] ([facility])[address] [place], [place] [address]ZXX (LEUKOCYTE) (#/HPF) IN URINE SEDIMENT3-5AbnormalNone Seen, 0-2UnCleveland Clinic South Pointe HospitalComment on above:Performed By: #### [id number] ####[facility] ([facility])[address] [place], [place] [address]-Mngfks call radiology at [phone] to schedule ultrasound testing. Can be scheduled same day as follow up appointmentsNormalUniversCleveland Clinic Marymount HospitalFollow-Upon 42-98-6748Vwucdx-UpNormalUniversCleveland Clinic Marymount Hospital Follow-Upon 19-45-4075Pjwzxv-UpNormalUniversity Chillicothe Hospital36on 80-69-043177VwmgymTzcvgzzxrp of [facility] Medical CenterOrders Onlyon 02-19-2024 Orders [id number] Shayy Maynard 1945 F Date Provider Department Center 02/19/2024 JF MOT[facility] CARD [facility] No family history on fileNormalUniversCleveland Clinic Marymount HospitalDocumentation on 67-45-8023CxxsddydxwrrlLqtajqKfyysocdah of [place] [facility] Dwvykb02qg 50-85-324764AojvpeBdkmqbhegz [facility]30NormalUniversity Chillicothe HospitalBASIC METABOLIC PANELon 19-35-0023Utekf gap [Moles/Vol]9 mmol/LNormal7-20UnCleveland Clinic South Pointe HospitalComment on above:Performed By: #### [id number] ####[facility] ([facility])[address] [place] [address] Calcium [Mass/Vol]8.3 mg/dLLow8.6-10.3UnCleveland Clinic South Pointe HospitalComment on above:Performed By: #### [id number] ####[facility] ([facility])[address] [place], [place] [address]Biimqvfz [Moles/Vol]107 mmol/XEugdbf30-994McumrqcibdCleveland Clinic South Pointe HospitalComment on above:Performed By: #### [id number] ####[facility] ([facility])[address] [place], [place] [address]NI4 [Moles/Vol]29 mmol/LNormal 21-31UnCleveland Clinic South Pointe HospitalComment on above:Performed By: #### [id number] ####[facility] ([facility])[address] [place], [place] [address]Hhtoshjbrb [Mass/Vol]1.70 mg/dLHigh0.60-1.20UnCleveland Clinic South Pointe HospitalComment on above:Performed By: #### [id number] ####[facility] ([facility])[address] [place], [place] [address]QIEASWWHDK FILTRATION RATE ML/MIN/1.73 SQ M.GCGIUKRDZ42.1 mL/min/1.73m*2Low>60.0UnCleveland Clinic South Pointe HospitalComment on above:Result Comment: [facility]???s estimated glomerular filtration rate (eGFR) will [...] anyone group of individuals.Performed By: #### [id number] ####[facility] ([facility])[address] [place], [place] [address]Ibiizlo [Mass/Vol]85 mg/xWQethiy41-509PpoxlpgeddCleveland Clinic South Pointe HospitalComment on above:Performed By: #### [id number] ####[facility] ([facility])[address] [place] [address]Oabvvtlww [Moles/Vol]4.6 mmol/LNormal3.5-5.1UnCleveland Clinic South Pointe HospitalComment on above:Performed By: #### [id number] ####[facility] ([facility])[address] [place] [address] Sodium [Moles/Vol]140 mmol/BDoajzu978-366MwjghjuvdpCleveland Clinic South Pointe Hospital Comment on above:Performed By: #### [id number] ####[facility] ([facility])[address] [place], [place] [address]Bivc nitrogen [Mass/Vol]21 mg/dLNormal7-25 [facility] HospitalComment on above:Performed By: #### [id number] ####[facility] ([facility])[address] [place], [place] [address]SLLS NITROGEN/CREATININE (MASS RATIO) IN SER/PLAS12.4NormalUniversCleveland Clinic Marymount HospitalComment on above:Performed By: #### [id number] ####[facility] ([facility])[address] [place], [place] [address]WKY WITH AUTO DIFFERENTIALon 50-44-5564Chrjayxhsmd distribution width (RBC) [Ratio]16.7 %High11.5-15.0 [facility] HospitalComment on above:Performed By: #### [id number] ####[facility] ([facility])[address] [place], [place] [address]KRYEDOIJLXC MEAN CORPUSCULAR HEMOGLOBIN CONCENTRATION (G/DL) BY SCUBRTDEZ05.1 g/dLLow32.0-35.0 [facility] HospitalComment on above:Performed By: #### [id number] ####[facility] ([facility])[address] [place], [place] [address]Oamfqettsr (Bld) [Volume fraction]27.9 %Low36.0-48.0UnCleveland Clinic South Pointe HospitalComment on above:Performed By: #### [id number] ####[facility] ([facility])[address] [place] [address]Qquiobfvaf (Bld) [Mass/Vol]8.4 g/dLLow12.0-15.0UnCleveland Clinic South Pointe HospitalComment on above:Performed By: #### [id number] ####[facility] ([facility])[address] [place] [address]IMF (RBC) [Entitic mass] 27.5 fuWjtizb33.0-33.0UnCleveland Clinic South Pointe HospitalComment on above: Performed By: #### [id number] ####[facility] ([facility])[address] [place] [address]TTZ (RBC) [Entitic vol]91.5 mYDbqarb02.0-98.0UnCleveland Clinic South Pointe HospitalComment on above:Performed By: #### [id number] ####[facility] ([facility])[address] [place] [address]PCNT (PER 100 WBCS) BY AUTOMATED COUNT0.0 %Ysndeo0HchtuxnpcsCleveland Clinic South Pointe HospitalComment on above: Performed By: #### [id number] ####[facility] ([facility])[address] [place] [address]NQPDODFMN (10*3/UL) IN BLOOD AUTOMATED [id number] 10*3/uLNormal 150-400UnCleveland Clinic South Pointe HospitalComment on above:Performed By: #### [id number] ####[facility] ([facility])[address] [place] [address]WNE (Bld) [#/Vol]3.05 10*6/uLLow3.80-5.00UnCleveland Clinic South Pointe HospitalComment on above:Performed By: #### [id number] ####[facility] ([facility])[address] [place] [address]GHW (Bld) [#/Vol]5.28 10*3/uLNormal4.00-10.60UnCleveland Clinic South Pointe HospitalComment on above:Performed By: #### [id number] ####[facility] ([facility])[address] [place] [address]VAsx 53-66-3005QFMjcrom [facility] HospitalMAGNESIUMon 06-04-64[address]Ersooalwc [Mass/Vol]1.9 mg/dLNormal1.9-2.7UnCleveland Clinic South Pointe HospitalComment on above:Performed By: #### [id number] ####[facility] ([facility])[address] [place] [address]XSPQVD DIFFERENTIALon 35-17-85[address]KZTDAOABA (10*3/UL) IN BLOOD BY CALCULATION 0.00 10*3/uLNormal0.00-0.20UnCleveland Clinic South Pointe HospitalComment on above: Performed By: #### [id number] ####[facility] ([facility])[address] [place] [address]VFCTWYNQN/100 LEUKOCYTES IN BLOOD BY AUTOMATED COUNT0.0 % Normal0.0-1.0UnCleveland Clinic South Pointe HospitalComment on above:Performed By: #### [id number] ####[facility] ([facility])[address] [place] [address] EOSINOPHILS (10*3/UL) IN BLOOD BY CALCULATION0.21 10*3/uLNormal0.00-0.50 [facility] HospitalComment on above:Performed By: #### [id number] ####[facility] ([facility])[address] [place] [address]UJMLVNKUXMR/100 LEUKOCYTES IN BLOOD BY AUTOMATED COUNT4.0 %Normal0.0-6.0UnCleveland Clinic South Pointe HospitalComment on above:Performed By: #### [id number] ####[facility] ([facility])[address] [place] [address]UKRDODOMWJP (10*3/UL) IN BLOOD BY CALCULATION0.81 10*3/uLLow1.20-4.00UnCleveland Clinic South Pointe HospitalComment on above:Performed By: #### [id number] ####[facility] ([facility])[address] [place], [place] [address]PEKXCUVCSKE/100 LEUKOCYTES IN BLOOD BY AUTOMATED COUNT15.4 % Low20.0-45.0UnCleveland Clinic South Pointe HospitalComment on above:Performed By: #### [id number] ####[facility] ([facility])[address] [place] [address] METAMYELOCYTES (10*3/UL) IN BLOOD BY CALCULATION0.04 10*3/uLHigh0.00UnCleveland Clinic South Pointe HospitalComment on above:Performed By: #### [id number] ####[facility] ([facility])[address] [place], [place] [address]PHLMCWTHIJNTIQ/100 LEUKOCYTES IN BLOOD CELLAVISION0.7 %High0.0-0.0UnCleveland Clinic South Pointe HospitalComment on above:Performed By: #### [id number] ####[facility] ([facility])[address] [place], [place] [address]WDUZMHRBO (10*3/UL) IN BLOOD BY CALCUATION0.25 10*3/uLNormal0.10-1.00UnCleveland Clinic South Pointe HospitalComment on above:Performed By: #### [id number] ####[facility] ([facility])[address] [place], [place] [address]QGPGTYSZJ/100 LEUKOCYTES IN BLOOD BY AUTOMATED COUNT4.7 %Low 5.0-12.0UnCleveland Clinic South Pointe HospitalComment on above:Performed By: #### [id number] ####[facility] ([facility])[address] [place] [address] MYELOCYTES (10*3/UL) IN BLOOD BY CALCULATION0.04 10*3/uLHigh0.00UnCleveland Clinic South Pointe HospitalComment on above:Performed By: #### [id number] ####[facility] ([facility])[address] [place], [place] [address]RAAURFYDGV/100 LEUKOCYTES IN BLOOD CELLAVISION0.7 %High0.0-0.0UnCleveland Clinic South Pointe HospitalComment on above:Performed By: #### [id number] ####[facility] ([facility])[address] [place], [place] [address]JQYNXYNDACY (10*3/UL) IN BLOOD BY CALCULATION3.9 10*3/uL Normal1.6-7.6UnCleveland Clinic South Pointe HospitalComment on above:Performed By: #### [id number] ####[facility] ([facility])[address] [place] [address] NEUTROPHILS/100 LEUKOCYTES IN BLOOD BY AUTOMATED COUNT74.5 %High40.0-72.0 [facility] HospitalComment on above:Performed By: #### [id number] ####[facility] ([facility])[address] [place], [place] [address]VXPKQB CELLS/100 LEUKOCYTES IN BLOOD0 %Awpxcs7UeryoqmflkCleveland Clinic South Pointe HospitalComment on above:Performed By: #### [id number] ####[facility] ([facility])[address] [place], [place] [address]DAMOEXBHC GIANT PRESENCE IN BLOOD BY LIGHT MICROSCOPYPresent NormalUnCleveland Clinic South Pointe HospitalComment on above:Performed By: #### [id number] ####[facility] ([facility])[address] [place], [place] [address]ATYEUA CELLS/100 LEUKOCYTES IN BLOOD CELLAVISIONPresentNormalUniversCleveland Clinic Marymount HospitalComment on above:Performed By: #### [id number] ####[facility] ([facility])[address] [place], [place] [address]KUEKREO LYMPHOCYTES (10*3/UL) IN BLOOD BY CALCULATION0.00 10*3/uLNormal0.00UnCleveland Clinic South Pointe HospitalComment on above:Performed By: #### [id number] ####[facility] ([facility])[address] [place], [place] [address]DEGTDLV LYMPHOCYTES/100 LEUKOCYTES IN BLOOD CELLAVISION0.0 % Normal0.0-0.0UnCleveland Clinic South Pointe HospitalComment on above:Performed By: #### [id number] ####[facility] ([facility])[address] [place] [address] NURSNOTEon 40-48-9516OPCXYBJGMqnzevKmttxpefzr of [facility] Medical CenterPOCT GLUCOSE METER UNSOLICITED RESULTSon 32-72-8578Hwvlguz [Mass/Vol]103 mg/dLNormal 70-105UnCleveland Clinic South Pointe HospitalComment on above:Order Comment: Waived Testing in the ED is performed under the ED CLIA certificate #[id number].Result Comment: fupju15Yrgvmcoes By: #### [id number] ####[facility] ([facility])[address] [place], [place] [address]xm 95-48-418891FsomznVpqjnlyneq [facility]30NormalUniversity [facility]30The patient is Moderately Stable - Low risk of patient condition declining or worsening The patient's goals for the shift include Comfort The clinical goals for the shift include VSS, safetyNormalUniversity of Faith Community HospitalDqgyfr37KecqwcUsufogcfmc [facility] HospitalBASIC METABOLIC PANELon 53-45-2800Kgstm gap [Moles/Vol]14 mmol/LNormal7-20UnCleveland Clinic South Pointe HospitalComment on above:Performed By: #### [id number] ####[facility] ([facility])[address] [place], [place] [address]Hishnwd [Mass/Vol]8.0 mg/dLLow8.6-10.3 [facility]Comment on above:Performed By: #### [id number] ####[facility] ([facility])[address] [place], [place] [address]Npvwmetg [Moles/Vol]105 mmol/GUndcnp89-811NhkdfvtxygCleveland Clinic South Pointe HospitalComment on above:Performed By: #### [id number] ####[facility] ([facility])[address] [place], [place] [address]US9 [Moles/Vol]26 mmol/LFdenpq68-59JsmedcskgwCleveland Clinic South Pointe HospitalComment on above:Performed By: #### [id number] ####[facility] ([facility])[address] [place], [place] [address]Obwteysveh [Mass/Vol]1.99 mg/dLHigh 0.60-1.20UnCleveland Clinic South Pointe HospitalComment on above:Performed By: #### [id number] ####[facility] ([facility])[address] [place] [address]HVRFQRLTPW FILTRATION RATE ML/MIN/1.73 SQ M.WRIYJWGVH88.9 mL/min/1.73m*2Low>60.0UnCleveland Clinic South Pointe HospitalComment on above:Result Comment: [facility]???s estimated glomerular filtration rate (eGFR) will [...] group of individuals. Performed By: #### [id number] ####[facility] ([facility])[address] [place] [address]Lmbzgec [Mass/Vol]80 mg/cKEjexto09-540AvuxaylyouCleveland Clinic South Pointe HospitalComment on above:Performed By: #### [id number] ####[facility] ([facility])[address] [place] [address]Tuljbegfj [Moles/Vol]4.5 mmol/LNormal 3.5-5.1UnCleveland Clinic South Pointe HospitalComment on above:Performed By: #### [id number] ####[facility] ([facility])[address] [place] [address]Eksmqv [Moles/Vol]140 mmol/TJmemit599-399KsxesvihuoCleveland Clinic South Pointe HospitalComment on above:Performed By: #### [id number] ####[facility] ([facility])[address] [place] [address]Ogbw nitrogen [Mass/Vol]28 mg/dLHigh7-25UnCleveland Clinic South Pointe HospitalComment on above:Performed By: #### [id number] ####[facility] ([facility])[address] [place] [address]LMGM NITROGEN/CREATININE (MASS RATIO) IN SER/PLAS14.1NormalUnCleveland Clinic South Pointe HospitalComment on above: Performed By: #### [id number] ####[facility] ([facility])[address] [place] [address]FWI WITH AUTO DIFFERENTIALon 68-59-8202Oqanrizbbnk distribution width (RBC) [Ratio]17.1 %High11.5-15.0UnCleveland Clinic South Pointe HospitalComment on above:Performed By: #### [id number] ####[facility] ([facility])[address] [place] [address]KEJOWURGIUT MEAN CORPUSCULAR HEMOGLOBIN CONCENTRATION (G/DL) BY DZYSTPIPO86.6 g/dLLow32.0-35.0UnCleveland Clinic South Pointe HospitalComment on above:Performed By: #### [id number] ####[facility] ([facility])[address] [place] [address]Hzupwyoymv (Bld) [Volume fraction]29.0 %Low36.0-48.0 [facility] HospitalComment on above:Performed By: #### [id number] ####[facility] ([facility])[address] [place] [address]Eqwpbrgxjw (Bld) [Mass/Vol]8.3 g/dLLow12.0-15.0UnCleveland Clinic South Pointe HospitalComment on above:Performed By: #### [id number] ####[facility] ([facility])[address] [place] [address]SYVHHSID PLATELET FRACTION %1.5 %Normal0.8-6.3UnCleveland Clinic South Pointe HospitalComment on above:Performed By: #### [id number] ####[facility] ([facility])[address] [place] [id number] (RBC) [Entitic mass] 27.8 wcLfklfa34.0-33.0UnCleveland Clinic South Pointe HospitalComment on above: Performed By: #### [id number] ####[facility] ([facility])[address] [place] [id number] (RBC) [Entitic vol]97.0 mQDnmnjn34.0-98.0UnCleveland Clinic South Pointe HospitalComment on above:Performed By: #### [id number] ####[facility] ([facility])[address] [place] [id number] (PER 100 WBCS) BY AUTOMATED COUNT0.0 %Hvdttm4LmjijfitcbCleveland Clinic South Pointe HospitalComment on above: Performed By: #### [id number] ####[facility] ([facility])[address] [place] [id number] (10*3/UL) IN BLOOD AUTOMATED AUOGH120 10*3/uLNormal 150-400UnCleveland Clinic South Pointe HospitalComment on above:Performed By: #### [id number] ####[facility] ([facility])[address] [place] [address]QJE (Bld) [#/Vol]2.99 10*6/uLLow3.80-5.00UnCleveland Clinic South Pointe HospitalComment on above:Performed By: #### [id number] ####[facility] ([facility])[address] [place] [address]MGN (Bld) [#/Vol]7.00 10*3/uLNormal4.00-10.60UnCleveland Clinic South Pointe HospitalComment on above:Performed By: #### [id number] ####[facility] ([facility])[address] [place] [address]ANBLICWSPps 02-11-2024 Magnesium [Mass/Vol]2.2 mg/dLNormal1.9-2.7UnCleveland Clinic South Pointe Hospital Comment on above:Performed By: #### [id number] ####[facility] ([facility])[address] [place] [address]VRFBTX DIFFERENTIALon 26-19-7989TZICXDRTRFSU PRESENCE IN BLOOD BY LIGHT MICROSCOPYSlightNormalUniversCleveland Clinic Marymount HospitalComment on above:Performed By: #### [id number] ####[facility] ([facility])[address] [place] [address]LRRDFWGNR (10*3/UL) IN BLOOD BY CALCULATION0.07 10*3/uLNormal0.00-0.20[facility] HospitalComment on above:Performed By: #### [id number] ####[facility] ([facility])[address] [place] [address]QOZTRFTWA/100 LEUKOCYTES IN BLOOD BY AUTOMATED COUNT1.0 %Normal0.0-1.0UnCleveland Clinic South Pointe HospitalComment on above: Performed By: #### [id number] ####[facility] ([facility])[address] [place] [address]NKMHEGHDMBN (10*3/UL) IN BLOOD BY CALCULATION0.27 10*3/uL Normal0.00-0.50UnCleveland Clinic South Pointe HospitalComment on above:Performed By: #### [id number] ####[facility] ([facility])[address] [place] [address] EOSINOPHILS/100 LEUKOCYTES IN BLOOD BY AUTOMATED COUNT3.9 %Normal0.0-6.0 [facility] HospitalComment on above:Performed By: #### [id number] ####[facility] ([facility])[address] [place] [address]GCNPWRLS GRANULOCYTES (10*3/UL) IN BLOOD BY CALCULATION0.34 10*3/uLHigh0.00-0.20 [facility] HospitalComment on above:Performed By: #### [id number] ####[facility] ([facility])[address] [place] [address]XYSNOXAM GRANULOCYTES/100 LEUKOCYTES IN BLOOD BY AUTOMATED COUNT4.9 %High0.0-1.0 [facility] HospitalComment on above:Performed By: #### [id number] ####[facility] ([facility])[address] [place] [address]YMMRIOQATFD (10*3/UL) IN BLOOD BY CALCULATION1.00 10*3/uLLow1.20-4.00UnCleveland Clinic South Pointe HospitalComment on above:Performed By: #### [id number] ####[facility] ([facility])[address] [place], [place] [address]PRMOJINMWUE/100 LEUKOCYTES IN BLOOD BY AUTOMATED COUNT14.3 %Low20.0-45.0[facility] HospitalComment on above:Performed By: #### [id number] ####[facility] ([facility])[address] [place], [place] [address]TUFWFPSVTX (PRESENCE) IN BLOOD BY LIGHT MICROSCOPYSlight NormalUnCleveland Clinic South Pointe HospitalComment on above:Performed By: #### [id number] ####[facility] ([facility])[address] [place] [address] MONOCYTES (10*3/UL) IN BLOOD BY CALCUATION0.68 10*3/uLNormal0.10-1.00[facility] HospitalComment on above:Performed By: #### [id number] ####[facility] ([facility])[address] [place], [place] [address]XGDWDNCPG/100 LEUKOCYTES IN BLOOD BY AUTOMATED COUNT9.7 %Normal5.0-12.0[facility] HospitalCombronson battle creek hospital on above:Performed By: #### [id number] ####[facility] ([facility])[address] [place], [place] [address]BLOTEREIOXG (10*3/UL) IN BLOOD BY CALCULATION4.6 10*3/uLNormal1.6-7.6UnCleveland Clinic South Pointe HospitalComment on above:Performed By: #### [id number] ####[facility] ([facility])[address] [place], [place] [address]IFJRIGMKLKH/100 LEUKOCYTES IN BLOOD BY AUTOMATED COUNT66.2 % Mcnlkz66.0-72.0[facility] HospitalComment on above:Performed By: #### [id number] ####[facility] ([facility])[address] [place] [address] POIKILOCYTOSIS (PRESENCE) IN BLOOD BY LIGHT MICROSCOPYSlightNormalUniZanesville City HospitalComment on above:Performed By: #### [id number] ####[facility] ([facility])[address] [place], [place] [address]HOAL GLUCOSE METER UNSOLICITED RESULTSon 30-74-3130Mcvhair [Mass/Vol]140 mg/eYEvah78-605CqmkxbrfiaCleveland Clinic South Pointe HospitalComment on above:Order Comment: Waived Testing in the ED is performed under the ED CLIA certificate #[id number].Result Comment: [email or web address] Performed By: #### [id number] ####[facility] ([facility])[address] [place], [place] [address]Cmtjbmj [Mass/Vol]158 mg/eIRhfa26-843UstrdrybdcCleveland Clinic South Pointe HospitalComment on above:Order Comment: Waived Testing in the ED is performed under the ED CLIA certificate #[id number].Result Comment: [email or web address] Performed By: #### [id number] ####[facility] ([facility])[address] [place], [place] [address]Jboxfwo [Mass/Vol]164 mg/gSPzum37-738ZrsnynmjeeCleveland Clinic South Pointe HospitalComment on above:Order Comment: Waived Testing in the ED is performed under the ED CLIA certificate #[id number].Result Comment: [email or web address] Performed By: #### [id number] ####[facility] ([facility])[address] [place], [place] [address]Ctntqzd [Mass/Vol]96 mg/vODeegao96-114WowtvsrhdvCleveland Clinic South Pointe HospitalComment on above:Order Comment: Waived Testing in the ED is performed under the ED CLIA certificate #[id number].Result Comment: [email or web address] Performed By: #### [id number] ####[facility] ([facility])[address] [place], [place] [address]qa 25-30-769842KjacuwSykzcqfcpv [facility]30 The patient is Moderately Stable - Low risk of patient condition declining or worsening The patient's goals for the shift include Comfort The clinical goals for the shift include VSS, safetyNormalUniversity of Faith Community HospitalLbidrz09VrayncPrxujitytqCleveland Clinic Marymount HospitalBASIC METABOLIC PANELon 81-25-7523Aoktv gap [Moles/Vol]10 mmol/LNormal7-20UnCleveland Clinic South Pointe HospitalComment on above:Performed By: #### [id number] ####[facility] ([facility])[address] [place], [place] [address]Hsyzvzd [Mass/Vol]8.0 mg/dLLow8.6-10.3 [facility] HospitalComment on above:Performed By: #### [id number] ####[facility] ([facility])[address] [place], [place] [address]Yswxfjzv [Moles/Vol]106 mmol/OYghrzc33-470FcctcgifuuCleveland Clinic South Pointe HospitalComment on above:Performed By: #### [id number] ####[facility] ([facility])[address] [place], [place] [address]KI6 [Moles/Vol]29 mmol/WFwiujy20-11DnqbhybbsaCleveland Clinic South Pointe HospitalComment on above:Performed By: #### [id number] ####[facility] ([facility])[address] [place], [place] [address]Yqstwxfozc [Mass/Vol]2.41 mg/dLHigh 0.60-1.20UnCleveland Clinic South Pointe HospitalComment on above:Performed By: #### [id number] ####[facility] ([facility])[address] [place], [place] [address]FAYXNCIQRR FILTRATION RATE ML/MIN/1.73 SQ M.FVSPWQHJB16.8 mL/min/1.73m*2Low>60.0UnCleveland Clinic South Pointe HospitalComment on above:Result Comment: [facility]???s estimated glomerular filtration rate (eGFR) will [...] group of individuals. Performed By: #### [id number] ####[facility] ([facility])[address] [place] [address]Nrsxccp [Mass/Vol]81 mg/rRAkdrsp78-450LqzssxjbbzCleveland Clinic South Pointe HospitalComment on above:Performed By: #### [id number] ####[facility] ([facility])[address] [place] [address]Oygafbutr [Moles/Vol]4.1 mmol/LNormal 3.5-5.1UnCleveland Clinic South Pointe HospitalComment on above:Performed By: #### [id number] ####[facility] ([facility])[address] [place] [address]Dmzeuo [Moles/Vol]141 mmol/CBbvmio501-802VeqnlpucruCleveland Clinic South Pointe HospitalComment on above:Performed By: #### [id number] ####[facility] ([facility])[address] [place] [address]Miyt nitrogen [Mass/Vol]36 mg/dLHigh7-25UnCleveland Clinic South Pointe HospitalComment on above:Performed By: #### [id number] ####[facility] ([facility])[address] [place], [place] [address]LMGF NITROGEN/CREATININE (MASS RATIO) IN SER/PLAS14.9NormalUniversCleveland Clinic Marymount HospitalComment on above: Performed By: #### [id number] ####[facility] ([facility])[address] [place] [address]DSG WITH AUTO DIFFERENTIALon 62-31-3509Ghwneouvt (Bld) [#/Vol]0.05 10*3/uLNormal0.00-0.20UnCleveland Clinic South Pointe HospitalComment on above: Performed By: #### [id number] ####[facility] ([facility])[address] [place] [address]Tujomdbna/100 WBC (Bld)0.7 %Normal0.0-1.0UnCleveland Clinic South Pointe HospitalComment on above:Performed By: #### [id number] ####[facility] ([facility])[address] [place], [place] [address]Psgzrksotup (Bld) [#/Vol]0.29 10*3/uL Normal0.00-0.50UnCleveland Clinic South Pointe HospitalComment on above:Performed By: #### [id number] ####[facility] ([facility])[address] [place] [address] Eosinophils/100 WBC (Bld)4.2 %Normal0.0-6.0UnCleveland Clinic South Pointe Hospital Comment on above:Performed By: #### [id number] ####[facility] ([facility])[address] [place], [place] [address]Ieqkvadypuh distribution width (RBC) [Ratio]16.9 % High11.5-15.0UnCleveland Clinic South Pointe HospitalComment on above:Performed By: #### [id number] ####[facility] ([facility])[address] [place] [address] ERYTHROCYTE MEAN CORPUSCULAR HEMOGLOBIN CONCENTRATION (G/DL) BY QPKPWLLSI79.1 g/dLLow32.0-35.0UnCleveland Clinic South Pointe HospitalComment on above:Performed By: #### [id number] ####[facility] ([facility])[address] [place], [place] [address]Iaibymbeyz (Bld) [Volume fraction]28.6 %Low36.0-48.0UnCleveland Clinic South Pointe HospitalComment on above:Performed By: #### [id number] ####[facility] ([facility])[address] [place], [place] [address]Popvetsqij (Bld) [Mass/Vol]8.6 g/dLLow 12.0-15.0UnCleveland Clinic South Pointe HospitalComment on above:Performed By: #### [id number] ####[facility] ([facility])[address] [place], [place] [address]Ztqqwpli granulocytes (Bld) [#/Vol]0.32 10*3/uLHigh0.00-0.20UnCleveland Clinic South Pointe HospitalComment on above:Performed By: #### [id number] ####[facility] ([facility])[address] [place] [address]Rkyuzqtl granulocytes/100 WBC (Bld)4.6 %High0.0-1.0UnCleveland Clinic South Pointe HospitalComment on above:Performed By: #### [id number] ####[facility] ([facility])[address] [place] [address] Lymphocytes (Bld) [#/Vol]1.03 10*3/uLLow1.20-4.00UnCleveland Clinic South Pointe HospitalComment on above:Performed By: #### [id number] ####[facility] ([facility])[address] [place] [address]Pzidjjivsev/100 WBC (Bld)14.9 %Low 20.0-45.0UnCleveland Clinic South Pointe HospitalComment on above:Performed By: #### [id number] ####[facility] ([facility])[address] [place], [place] [address]IVK (RBC) [Entitic mass]27.8 cjNqloxn66.0-33.0UnCleveland Clinic South Pointe Hospital Comment on above:Performed By: #### [id number] ####[facility] ([facility])[address] [place], [place] [address]SDG (RBC) [Entitic vol]92.6 cSJscmtj80.0-98.0 [facility] HospitalComment on above:Performed By: #### [id number] ####[facility] ([facility])[address] [place] [address]Twuvwhtcs (Bld) [#/Vol]0.59 10*3/uLNormal0.10-1.00UnCleveland Clinic South Pointe HospitalComment on above:Performed By: #### [id number] ####[facility] ([facility])[address] [place], [place] [address]Flfljuobx/100 WBC (Bld)8.5 %Normal5.0-12.0UnCleveland Clinic South Pointe HospitalComment on above:Performed By: #### [id number] ####[facility] ([facility])[address] [place] [address]Psjbupxldwx (Bld) [#/Vol] 4.63 10*3/uLNormal1.60-7.60UnCleveland Clinic South Pointe HospitalComment on above: Performed By: #### [id number] ####[facility] ([facility])[address] [place] [address]Rdpvkixdxzu/100 WBC (Bld)67.1 %Epzhea06.0-72.0UnCleveland Clinic South Pointe HospitalComment on above:Performed By: #### [id number] ####[facility] ([facility])[address] [place] [address]MLJM (PER 100 WBCS) BY AUTOMATED COUNT0.0 %Zjvhrn3OjticvuuziCleveland Clinic South Pointe HospitalComment on above: Performed By: #### [id number] ####[facility] ([facility])[address] [place] [address]XMGVTVWGD (10*3/UL) IN BLOOD AUTOMATED OQCRA016 10*3/uLNormal 150-400UnCleveland Clinic South Pointe HospitalComment on above:Performed By: #### [id number] ####[facility] ([facility])[address] [place] [address]EXS (Bld) [#/Vol]3.09 10*6/uLLow3.80-5.00UnCleveland Clinic South Pointe HospitalComment on above:Performed By: #### [id number] ####[facility] ([facility])[address] [place] [address]XUW (Bld) [#/Vol]6.91 10*3/uLNormal4.00-10.60UnCleveland Clinic South Pointe HospitalComment on above:Performed By: #### [id number] ####[facility] ([facility])[address] [place] [address]MLSTRZFURff 02-10-2024 Magnesium [Mass/Vol]2.7 mg/dLNormal1.9-2.7UnCleveland Clinic South Pointe Hospital Comment on above:Performed By: #### [id number] ####[facility] ([facility])[address] [place], [place] [address]UUHC GLUCOSE METER UNSOLICITED RESULTSon 02-10-2024 Glucose [Mass/Vol]110 mg/qHHlcq92-224XelcrxjmrlCleveland Clinic South Pointe HospitalComment on above:Order Comment: Waived Testing in the ED is performed under the ED CLIA certificate #[id number].Result Comment: [id number] By: #### [id number] ####[facility] ([facility])[address] [place], [place] [address]Rwkmatl [Mass/Vol]181 mg/nVIdsj89-787DnoblekvfzCleveland Clinic South Pointe HospitalComment on above:Order Comment: Waived Testing in the ED is performed under the ED CLIA certificate #[id number].Result Comment: [id number] By: #### [id number] ####[facility] ([facility])[address] [place], [place] [address]Bwraolp [Mass/Vol]136 mg/uVWazm46-172ZpyulwxdweCleveland Clinic South Pointe HospitalComment on above:Order Comment: Waived Testing in the ED is performed under the ED CLIA certificate #[id number].Result Comment: ezvlvpu6Zeyhqdyxb By: #### [id number] ####[facility] ([facility])[address] [place], [place] [address]Piaairk [Mass/Vol]92 mg/eDPigvwu97-182AoidhmhrwdCleveland Clinic South Pointe HospitalComment on above:Order Comment: Waived Testing in the ED is performed under the ED CLIA certificate #[id number].Result Comment: [id number] By: #### [id number] ####[facility] ([facility])[address] [place], [place] [address]Svqhgfu [Mass/Vol]99 mg/xMIakfwt90-490XhncldxaxvCleveland Clinic South Pointe HospitalComment on above:Order Comment: Waived Testing in the ED is performed under the ED CLIA certificate #[id number].Result Comment: yhcxsh19Bktaedgfb By: #### [id number] ####[facility] ([facility])[address] [place], [place] [address]tm 02-09-2024 30NormalUniversity [facility]30NormalUniversity [facility]30NormalUniversity [facility] HospitalBASIC METABOLIC PANELon 43-37-9238Idjkd gap [Moles/Vol]10 mmol/LNormal7-20UnCleveland Clinic South Pointe HospitalComment on above:Performed By: #### [id number] ####[facility] ([facility])[address] [place], [place] [address]Sutpizh [Mass/Vol]8.1 mg/dLLow8.6-10.3 [facility] HospitalComment on above:Performed By: #### [id number] ####[facility] ([facility])[address] [place], [place] [address]Wjrlobmd [Moles/Vol]104 mmol/PCplyqq55-770FwuhdzxoihCleveland Clinic South Pointe HospitalComment on above:Performed By: #### [id number] ####[facility] ([facility])[address] [place], [place] [address]LP[address] [Moles/Vol]30 mmol/FRbkrsx52-57FcwnpuidshCleveland Clinic South Pointe HospitalComment on above:Performed By: #### [id number] ####[facility] ([facility])[address] [place], [place] [address]Htvsedwlgy [Mass/Vol]3.10 mg/dLHigh 0.60-1.20UnCleveland Clinic South Pointe HospitalComment on above:Performed By: #### [id number] ####[facility] ([facility])[address] [place], [place] [address]RMFQPHNOCE FILTRATION RATE ML/MIN/1.73 SQ M.NWXAAVDTW37.7 mL/min/1.73m*2Low>60.0UnCleveland Clinic South Pointe HospitalComment on above:Result Comment: [facility]???s estimated glomerular filtration rate (eGFR) will [...] group of individuals. Performed By: #### [id number] ####[facility] ([facility])[address] [place], [place] [address]Lzzfwsc [Mass/Vol]89 mg/bUVtxcoq01-499AchgplzzobCleveland Clinic South Pointe HospitalComment on above:Performed By: #### [id number] ####[facility] ([facility])[address] [place], [place] [address]Krfgoujba [Moles/Vol]4.2 mmol/LNormal 3.5-5.1UnCleveland Clinic South Pointe HospitalComment on above:Performed By: #### [id number] ####[facility] ([facility])[address] [place], [place] [address]Jyzrrc [Moles/Vol]140 mmol/GCxziwx495-216UvukimzgnaCleveland Clinic South Pointe HospitalComment on above:Performed By: #### [id number] ####[facility] ([facility])[address] [place], [place] [address]Cdtn nitrogen [Mass/Vol]45 mg/dLHigh7-25UnCleveland Clinic South Pointe HospitalComment on above:Performed By: #### [id number] ####[facility] ([facility])[address] [place], [place] [address]TYPG NITROGEN/CREATININE (MASS RATIO) IN SER/PLAS14.5NormalUniversCleveland Clinic Marymount HospitalComment on above: Performed By: #### [id number] ####[facility] ([facility])[address] [place], [place] [address]HYJ WITH AUTO DIFFERENTIALon 22-50-3801Iklxcwngc (Bld) [#/Vol]0.05 10*3/uLNormal0.00-0.20UnCleveland Clinic South Pointe HospitalComment on above: Performed By: #### [id number] ####[facility] ([facility])[address] [place], [place] [address]Cynjgpqxe/100 WBC (Bld)0.7 %Normal0.0-1.0UnCleveland Clinic South Pointe HospitalComment on above:Performed By: #### [id number] ####[facility] ([facility])[address] [place], [place] [address]Pikqaynyvwj (Bld) [#/Vol]0.24 10*3/uL Normal0.00-0.50UnCleveland Clinic South Pointe HospitalComment on above:Performed By: #### [id number] ####[facility] ([facility])[address] [place] [address] Eosinophils/100 WBC (Bld)3.1 %Normal0.0-6.0UnCleveland Clinic South Pointe Hospital Comment on above:Performed By: #### [id number] ####[facility] ([facility])[address] [place], [place] [address]Sytxakjoxjw distribution width (RBC) [Ratio]17.1 % High11.5-15.0UnCleveland Clinic South Pointe HospitalComment on above:Performed By: #### [id number] ####[facility] ([facility])[address] [place] [address] ERYTHROCYTE MEAN CORPUSCULAR HEMOGLOBIN CONCENTRATION (G/DL) BY XKBYFFFXO64.4 g/dLLow32.0-35.0UnCleveland Clinic South Pointe HospitalComment on above:Performed By: #### [id number] ####[facility] (AKER)[address] [place], [place] [address]Hqjomftutj (Bld) [Volume fraction]27.2 %Low36.0-48.0UnCleveland Clinic South Pointe HospitalComment on above:Performed By: #### [id number] ####[facility] ([facility])[address] [place], [place] [address]Jbshmbvcbd (Bld) [Mass/Vol]8.0 g/dLLow 12.0-15.0UnCleveland Clinic South Pointe HospitalComment on above:Performed By: #### [id number] ####[facility] ([facility])[address] [place], [place] [address]Hkmmlyri granulocytes (Bld) [#/Vol]0.28 10*3/uLHigh0.00-0.20UnCleveland Clinic South Pointe HospitalComment on above:Performed By: #### [id number] ####[facility] ([facility])[address] [place], [place] [address]Olpzyqzt granulocytes/100 WBC (Bld)3.7 %High0.0-1.0UnCleveland Clinic South Pointe HospitalComment on above:Performed By: #### [id number] ####[facility] ([facility])[address] [place] [address] Lymphocytes (Bld) [#/Vol]0.92 10*3/uLLow1.20-4.00UnCleveland Clinic South Pointe HospitalComment on above:Performed By: #### [id number] ####[facility] ([facility])[address] [place], [place] [address]Beoszcmoivp/100 WBC (Bld)12.0 %Low 20.0-45.0UnCleveland Clinic South Pointe HospitalComment on above:Performed By: #### [id number] ####[facility] ([facility])[address] [place], [place] [address]OZZ (RBC) [Entitic mass]27.4 vaCbeejx49.0-33.0UnCleveland Clinic South Pointe Hospital Comment on above:Performed By: #### [id number] ####[facility] ([facility])[address] [place], [place] [address]XSP (RBC) [Entitic vol]93.2 yJUzaqss93.0-98.0 [facility] HospitalComment on above:Performed By: #### [id number] ####[facility] ([facility])[address] [place], [place] [address]Dkvuvhmjs (Bld) [#/Vol]0.65 10*3/uLNormal0.10-1.00UnCleveland Clinic South Pointe HospitalComment on above:Performed By: #### [id number] ####[facility] ([facility])[address] [place], [place] [address]Wfoaszggu/100 WBC (Bld)8.5 %Normal5.0-12.0UnCleveland Clinic South Pointe HospitalComment on above:Performed By: #### [id number] ####[facility] ([facility])[address] [place] [address]Kioondsqcnu (Bld) [#/Vol] 5.79 10*3/uLNormal1.60-7.60UnCleveland Clinic South Pointe HospitalComment on above: Performed By: #### [id number] ####[facility] ([facility])[address] [place] [address]Djirazclwsi/100 WBC (Bld)75.7 %High40.0-72.0UnCleveland Clinic South Pointe HospitalComment on above:Performed By: #### [id number] ####[facility] ([facility])[address] [place] [address]JWNE (PER 100 WBCS) BY AUTOMATED COUNT0.0 %Kqgruq9RidxskhiexCleveland Clinic South Pointe HospitalComment on above: Performed By: #### [id number] ####[facility] ([facility])[address] [place] [address]RBSTCAFXW (10*3/UL) IN BLOOD AUTOMATED VFCVW369 10*3/uLNormal 150-400UnCleveland Clinic South Pointe HospitalComment on above:Performed By: #### [id number] ####[facility] ([facility])[address] [place] [address]UTQ (Bld) [#/Vol]2.92 10*6/uLLow3.80-5.00UnCleveland Clinic South Pointe HospitalComment on above:Performed By: #### [id number] ####[facility] ([facility])[address] [place] [address]UFF (Bld) [#/Vol]7.65 10*3/uLNormal4.00-10.60UnCleveland Clinic South Pointe HospitalComment on above:Performed By: #### [id number] ####[facility] ([facility])[address] [place], [place] [address]PANPDLJig 02-09-2024 CONSULTNormalUniversCleveland Clinic Marymount HospitalMAGNESIUMon [id number] [Mass/Vol]3.2 mg/dLHigh1.9-2.7UnCleveland Clinic South Pointe HospitalComment on above:Performed By: #### [id number] ####[facility] ([facility])[address] [place], [place] [address]NIUR GLUCOSE METER UNSOLICITED RESULTSon [id number] [Mass/Vol]173 mg/dVHflp17-223ApxsjulqbnCleveland Clinic South Pointe HospitalComment on above:Order Comment: Waived Testing in the ED is performed under the ED CLIA certificate #[id number].Result Comment: [id number] By: #### [id number] ####[facility] ([facility])[address] [place], [place] [address]Qhqbwqh [Mass/Vol]201 mg/xHEgya38-887HfejqfsvmfCleveland Clinic South Pointe HospitalComment on above:Order Comment: Waived Testing in the ED is performed under the ED CLIA certificate #[id number].Result Comment: bfloodPerformed By: #### [id number] ####[facility] ([facility])[address] [place], [place] [address]Tzaddfe [Mass/Vol]118 mg/pCJbxa60-887YaiqiantieCleveland Clinic South Pointe HospitalComment on above:Order Comment: Waived Testing in the ED is performed under the ED CLIA certificate #[id number].Result Comment: udraozr2Vecrpwwsw By: #### [id number] ####[facility] ([facility])[address] [place], [place] [address]Xcikkad [Mass/Vol]129 mg/iWVgrm07-629ZvozolxeiiCleveland Clinic South Pointe HospitalComment on above:Order Comment: Waived Testing in the ED is performed under the ED CLIA certificate #[id number].Result Comment: myuak6Rfmqsfkkh By: #### [id number] ####[facility] ([facility])[address] [place], [place] [address]uc 02-08-2024 30NormalUniversCleveland Clinic Marymount Hospital30NormalUniversCleveland Clinic Marymount HospitalBASIC METABOLIC PANELon 25-71-8477Hdjso gap [Moles/Vol]10 mmol/LNormal7-20 [facility] HospitalComment on above:Performed By: #### [id number] ####[facility] ([facility])[address] [place], [place] [address]Mqbyyeb [Mass/Vol]8.3 mg/dLLow8.6-10.3UnCleveland Clinic South Pointe HospitalComment on above:Performed By: #### [id number] ####[facility] ([facility])[address] [place], [place] [address]Bcufiixj [Moles/Vol]101 mmol/BCcsrrj13-117NkoapdqivwCleveland Clinic South Pointe HospitalComment on above:Performed By: #### [id number] ####[facility] ([facility])[address] [place], [place] [address]EY7 [Moles/Vol]30 mmol/LNormal 21-31UnCleveland Clinic South Pointe HospitalComment on above:Performed By: #### [id number] ####[facility] ([facility])[address] [place], [place] [address]Sdlwhdbtzk [Mass/Vol]3.65 mg/dLHigh0.60-1.20UnCleveland Clinic South Pointe HospitalComment on above:Performed By: #### [id number] ####[facility] ([facility])[address] [place], [place] [address]THUOJXMYQO FILTRATION RATE ML/MIN/1.73 SQ M.BYHYSBHXS49.0 mL/min/1.73m*2Low>60.0UnCleveland Clinic South Pointe HospitalComment on above:Result Comment: [facility]???s estimated glomerular filtration rate (eGFR) will [...] anyone group of individuals.Performed By: #### [id number] ####[facility] ([facility])[address] [place] [address]Jnkgqyk [Mass/Vol]102 mg/hFBxgw11-909QypuzzblwlCleveland Clinic South Pointe HospitalComment on above:Performed By: #### [id number] ####[facility] ([facility])[address] [place] [address]Vwyiemtps [Moles/Vol]4.2 mmol/L Normal3.5-5.1UnCleveland Clinic South Pointe HospitalComment on above:Performed By: #### [id number] ####[facility] ([facility])[address] [place] [address] Sodium [Moles/Vol]137 mmol/LXbxlli142-516MadeqiucmwCleveland Clinic South Pointe Hospital Comment on above:Performed By: #### [id number] ####[facility] ([facility])[address] [place], [place] [address]Jhuv nitrogen [Mass/Vol]50 mg/dLHigh7-25UnCleveland Clinic South Pointe HospitalComment on above:Performed By: #### [id number] ####[facility] ([facility])[address] [place] [address]MNPN NITROGEN/CREATININE (MASS RATIO) IN SER/PLAS13.7NormalUniversCleveland Clinic Marymount HospitalComment on above:Performed By: #### [id number] ####[facility] ([facility])[address] [place] [address]ZWB WITH AUTO DIFFERENTIALon 08-79-6194Xxgwrjmvw (Bld) [#/Vol]0.03 10*3/uLNormal0.00-0.20UnCleveland Clinic South Pointe HospitalComment on above:Performed By: #### [id number] ####[facility] ([facility])[address] [place] [address]Zjjbolngv/100 WBC (Bld)0.4 %Normal0.0-1.0UnCleveland Clinic South Pointe HospitalComment on above:Performed By: #### [id number] ####[facility] ([facility])[address] [place], [place] [address]Ufxejdlnilg (Bld) [#/Vol]0.20 10*3/uL Normal0.00-0.50UnCleveland Clinic South Pointe HospitalComment on above:Performed By: #### [id number] ####[facility] ([facility])[address] [place] [address] Eosinophils/100 WBC (Bld)2.9 %Normal0.0-6.0UnCleveland Clinic South Pointe Hospital Comment on above:Performed By: #### [id number] ####[facility] ([facility])[address] [place], [place] [address]Skyhldjxfqp distribution width (RBC) [Ratio]16.9 % High11.5-15.0UnCleveland Clinic South Pointe HospitalComment on above:Performed By: #### [id number] ####[facility] ([facility])[address] [place] [address] ERYTHROCYTE MEAN CORPUSCULAR HEMOGLOBIN CONCENTRATION (G/DL) BY YVCUQXCRG36.8 g/dLLow32.0-35.0UnCleveland Clinic South Pointe HospitalComment on above:Performed By: #### [id number] ####[facility] ([facility])[address] [place], [place] [address]Fvvdaktozi (Bld) [Volume fraction]25.3 %Low36.0-48.0UnCleveland Clinic South Pointe HospitalComment on above:Performed By: #### [id number] ####[facility] ([facility])[address] [place], [place] [address]Lywlpyshzu (Bld) [Mass/Vol]7.8 g/dLLow 12.0-15.0UnCleveland Clinic South Pointe HospitalComment on above:Performed By: #### [id number] ####[facility] ([facility])[address] [place], [place] [address]Sytnydnu granulocytes (Bld) [#/Vol]0.23 10*3/uLHigh0.00-0.20UnCleveland Clinic South Pointe HospitalComment on above:Performed By: #### [id number] ####[facility] ([facility])[address] [place] [address]Foxoofuf granulocytes/100 WBC (Bld)3.3 %High0.0-1.0UnCleveland Clinic South Pointe HospitalComment on above:Performed By: #### [id number] ####[facility] ([facility])[address] [place] [address] Lymphocytes (Bld) [#/Vol]0.80 10*3/uLLow1.20-4.00UnCleveland Clinic South Pointe HospitalComment on above:Performed By: #### [id number] ####[facility] ([facility])[address] [place], [place] [address]Lhbsqoianmh/100 WBC (Bld)11.5 %Low 20.0-45.0UnCleveland Clinic South Pointe HospitalComment on above:Performed By: #### [id number] ####[facility] ([facility])[address] [place], [place] [address]DRX (RBC) [Entitic mass]28.3 ywHpbvzt06.0-33.0UnCleveland Clinic South Pointe Hospital Comment on above:Performed By: #### [id number] ####[facility] ([facility])[address] [place], [place] [address]MZJ (RBC) [Entitic vol]91.7 fQHhdrif02.0-98.0 [facility] HospitalComment on above:Performed By: #### [id number] ####[facility] ([facility])[address] [place], [place] [address]Uhndpgeso (Bld) [#/Vol]0.63 10*3/uLNormal0.10-1.00UnCleveland Clinic South Pointe HospitalComment on above:Performed By: #### [id number] ####[facility] ([facility])[address] [place], [place] [address]Yocdyyzkh/100 WBC (Bld)9.0 %Normal5.0-12.0UnCleveland Clinic South Pointe HospitalComment on above:Performed By: #### [id number] ####[facility] ([facility])[address] [place] [address]Xarjullmglr (Bld) [#/Vol] 5.32 10*3/uLNormal1.60-7.60UnCleveland Clinic South Pointe HospitalComment on above: Performed By: #### [id number] ####[facility] ([facility])[address] [place] [address]Loufhifeefe/100 WBC (Bld)76.2 %High40.0-72.0UnCleveland Clinic South Pointe HospitalComment on above:Performed By: #### [id number] ####[facility] ([facility])[address] [place] [address]YQTK (PER 100 WBCS) BY AUTOMATED COUNT0.0 %Pghvju1BolzdqeuwsCleveland Clinic South Pointe HospitalComment on above: Performed By: #### [id number] ####[facility] ([facility])[address] [place] [address]DVUSHAJCQ (10*3/UL) IN BLOOD AUTOMATED [id number] 10*3/uLNormal 150-400UnCleveland Clinic South Pointe HospitalComment on above:Performed By: #### [id number] ####[facility] ([facility])[address] [place] [address]FCK (Bld) [#/Vol]2.76 10*6/uLLow3.80-5.00UnCleveland Clinic South Pointe HospitalComment on above:Performed By: #### [id number] ####[facility] ([facility])[address] [place] [address]NKK (Bld) [#/Vol]6.98 10*3/uLNormal4.00-10.60UnCleveland Clinic South Pointe HospitalComment on above:Performed By: #### [id number] ####[facility] ([facility])[address] [place] [address]IGPKGKAFQum 02-08-2024 Magnesium [Mass/Vol]3.6 mg/dLHigh1.9-2.7UnCleveland Clinic South Pointe Hospital Comment on above:Performed By: #### [id number] ####[facility] ([facility])[address] [place], [place] [address]JMSJDVKLfe 47-68-1228NYQUAKSJEzaqpeTgxcsbmnmu of Toledo Medical CenterPOCT GLUCOSE METER UNSOLICITED RESULTSon 48-96-6710Exopvmx [Mass/Vol]160 mg/xGRryx56-553StmyeobdbwCleveland Clinic South Pointe HospitalComment on above:Order Comment: Waived Testing in the ED is performed under the ED CLIA certificate #[id number].Result Comment: jxprr8Qpdiqloka By: #### [id number] ####[facility] ([facility])[address] [place], [place] [address]Sxxncpw [Mass/Vol]128 mg/yEWunc55-131CyzipyjnyxCleveland Clinic South Pointe HospitalComment on above:Order Comment: Waived Testing in the ED is performed under the ED CLIA certificate #[id number].Result Comment: hxyb0Ngmmqnwmo By: #### [id number] ####[facility] ([facility])[address] [place] [id number] 02-07-2024 30NormalUniversCleveland Clinic Marymount Hospital30NormalUniversCleveland Clinic Marymount HospitalB-TYPE NATRIURETIC PEPTIDEon 49-12-0590Wxigjiisihp peptide B (Bld) [Mass/Vol]1210 pg/mLHigh0-100UnCleveland Clinic South Pointe HospitalComment on above:Performed By: #### [id number] ####[facility] ([facility])[address] [facility] [place], [place] [address]KCXWC METABOLIC PANELon 04-64-8334Ymipa gap [Moles/Vol]13 mmol/LNormal7-20UnCleveland Clinic South Pointe HospitalComment on above:Performed By: #### [id number] ####[facility] ([facility])[address] [place] [address] Calcium [Mass/Vol]8.2 mg/dLLow8.6-10.3UnCleveland Clinic South Pointe HospitalComment on above:Performed By: #### [id number] ####[facility] ([facility])[address] [place], [place] [address]Empemnal [Moles/Vol]100 mmol/ZTggrma44-318GtloupmalbCleveland Clinic South Pointe HospitalComment on above:Performed By: #### [id number] ####[facility] ([facility])[address] [place], [place] [address]YB2 [Moles/Vol]29 mmol/LNormal 21-31UnCleveland Clinic South Pointe HospitalComment on above:Performed By: #### [id number] ####[facility] ([facility])[address] [place], [place] [address]Kjqntalerg [Mass/Vol]3.57 mg/dLHigh0.60-1.20UnCleveland Clinic South Pointe HospitalComment on above:Performed By: #### [id number] ####[facility] ([facility])[address] [place], [place] [address]RAHLBRPKPU FILTRATION RATE ML/MIN/1.73 SQ M.LXHTPHPET30.4 mL/min/1.73m*2Low>60.0UnCleveland Clinic South Pointe HospitalComment on above:Result Comment: [facility]???s estimated glomerular filtration rate (eGFR) will [...] anyone group of individuals.Performed By: #### [id number] ####[facility] ([facility])[address] [place], [place] [address]Qglfjdy [Mass/Vol]107 mg/uNUogt38-565RfikrjqkmaCleveland Clinic South Pointe HospitalComment on above:Performed By: #### [id number] ####[facility] ([facility])[address] [place], [place] [address]Xwyanpnsy [Moles/Vol]4.0 mmol/L Normal3.5-5.1UnCleveland Clinic South Pointe HospitalComment on above:Performed By: #### [id number] ####[facility] ([facility])[address] [place] [address] Sodium [Moles/Vol]138 mmol/WUfodgc743-368IycryufnwfCleveland Clinic South Pointe Hospital Comment on above:Performed By: #### [id number] ####[facility] ([facility])[address] [place] [address]Ginm nitrogen [Mass/Vol]48 mg/dLHigh7-25UnCleveland Clinic South Pointe HospitalComment on above:Performed By: #### [id number] ####[facility] ([facility])[address] [place] [address]QNLS NITROGEN/CREATININE (MASS RATIO) IN SER/PLAS13.4NormalUniversCleveland Clinic Marymount HospitalComment on above:Performed By: #### [id number] ####[facility] ([facility])[address] [place], [place] [address]RUT WITH AUTO DIFFERENTIALon 77-18-8226Mdshnygnb (Bld) [#/Vol]0.02 10*3/uLNormal0.00-0.20UnCleveland Clinic South Pointe HospitalComment on above:Performed By: #### [id number] ####[facility] ([facility])[address] [place] [address]Abnrnhwoa/100 WBC (Bld)0.3 %Normal0.0-1.0UnCleveland Clinic South Pointe HospitalComment on above:Performed By: #### [id number] ####[facility] ([facility])[address] [place] [address]Zxzdqvpvzcu (Bld) [#/Vol]0.01 10*3/uL Normal0.00-0.50UnCleveland Clinic South Pointe HospitalComment on above:Performed By: #### [id number] ####[facility] ([facility])[address] [place] [address] Eosinophils/100 WBC (Bld)0.1 %Normal0.0-6.0UnCleveland Clinic South Pointe Hospital Comment on above:Performed By: #### [id number] ####[facility] ([facility])[address] [place], [place] [address]Igrgkhqifse distribution width (RBC) [Ratio]16.9 % High11.5-15.0UnCleveland Clinic South Pointe HospitalComment on above:Performed By: #### [id number] ####[facility] ([facility])[address] [place] [address] ERYTHROCYTE MEAN CORPUSCULAR HEMOGLOBIN CONCENTRATION (G/DL) BY PXHLBYLDH98.5 g/dLLow32.0-35.0UnCleveland Clinic South Pointe HospitalComment on above:Performed By: #### [id number] ####[facility] ([facility])[address] [place], [place] [address]Ttvsdsslfr (Bld) [Volume fraction]24.6 %Low36.0-48.0UnCleveland Clinic South Pointe HospitalComment on above:Performed By: #### [id number] ####[facility] ([facility])[address] [place], [place] [address]Okqmkuixsm (Bld) [Mass/Vol]7.5 g/dLLow 12.0-15.0UnCleveland Clinic South Pointe HospitalComment on above:Performed By: #### [id number] ####[facility] ([facility])[address] [place], [place] [address]Rrbixifg granulocytes (Bld) [#/Vol]0.09 10*3/uLNormal0.00-0.20UnCleveland Clinic South Pointe HospitalComment on above:Performed By: #### [id number] ####[facility] ([facility])[address] [place], [place] [address]Qvyshxhs granulocytes/100 WBC (Bld)1.2 %High0.0-1.0UnCleveland Clinic South Pointe HospitalComment on above:Performed By: #### [id number] ####[facility] ([facility])[address] [place] [address] Lymphocytes (Bld) [#/Vol]0.66 10*3/uLLow1.20-4.00UnCleveland Clinic South Pointe HospitalComment on above:Performed By: #### [id number] ####[facility] ([facility])[address] [place] [address]Sjkmeucaitq/100 WBC (Bld)8.6 %Low 20.0-45.0UnCleveland Clinic South Pointe HospitalComment on above:Performed By: #### [id number] ####[facility] ([facility])[address] [place], [place] [address]TWC (RBC) [Entitic mass]27.7 aeAuoolw11.0-33.0UnCleveland Clinic South Pointe Hospital Comment on above:Performed By: #### [id number] ####[facility] ([facility])[address] [place], [place] [address]ARE (RBC) [Entitic vol]90.8 sXZvwfpf41.0-98.0 [facility] HospitalComment on above:Performed By: #### [id number] ####[facility] ([facility])[address] [place], [place] [address]Qlcjbhdxy (Bld) [#/Vol]0.50 10*3/uLNormal0.10-1.00UnCleveland Clinic South Pointe HospitalComment on above:Performed By: #### [id number] ####[facility] ([facility])[address] [place], [place] [address]Kyrzqrpem/100 WBC (Bld)6.5 %Normal5.0-12.0UnCleveland Clinic South Pointe HospitalComment on above:Performed By: #### [id number] ####[facility] ([facility])[address] [place], [place] [address]Kpxcrtvrrxo (Bld) [#/Vol] 6.50 10*3/uLNormal1.60-7.60UnCleveland Clinic South Pointe HospitalComment on above: Performed By: #### [id number] ####[facility] ([facility])[address] [place], [place] [address]Zaevrwmaeuw/100 WBC (Bld)84.5 %High40.0-72.0UnCleveland Clinic South Pointe HospitalComment on above:Performed By: #### [id number] ####[facility] ([facility])[address] [place] [address]MZGO (PER 100 WBCS) BY AUTOMATED COUNT0.0 %Nvwewi7SugrvjjzryCleveland Clinic South Pointe HospitalComment on above: Performed By: #### [id number] ####[facility] ([facility])[address] [place] [address]EJLEOASDA (10*3/UL) IN BLOOD AUTOMATED [id number] 10*3/uLNormal 150-400UnCleveland Clinic South Pointe HospitalComment on above:Performed By: #### [id number] ####[facility] ([facility])[address] [place] [address]HJE (Bld) [#/Vol]2.71 10*6/uLLow3.80-5.00UnCleveland Clinic South Pointe HospitalComment on above:Performed By: #### [id number] ####[facility] ([facility])[address] [place] [address]JIG (Bld) [#/Vol]7.69 10*3/uLNormal4.00-10.60UnCleveland Clinic South Pointe HospitalComment on above:Performed By: #### [id number] ####[facility] ([facility])[address] [place] [address]COTXVDXHFzg 02-07-2024 Magnesium [Mass/Vol]3.7 mg/dLHigh1.9-2.7UnC[facility] Clinic South Pointe Hospital Comment on above:Performed By: #### [id number] ####[facility] ([facility])[address] [place] [address]WPML GLUCOSE METER UNSOLICITED RESULTSon 02-07-2024 Glucose [Mass/Vol]141 mg/kCIqvp67-814BtyrzhueehCleveland Clinic South Pointe HospitalComment on above:Order Comment: Waived Testing in the ED is performed under the ED CLIA certificate #[id number].Result Comment: qpixbka9Fuvnjbxnr By: #### [id number] ####[facility] ([facility])[address] [place] [address]Uqmggfd [Mass/Vol]133 mg/qAIkhh75-386DmfgdyfhfiCleveland Clinic South Pointe HospitalComment on above:Order Comment: Waived Testing in the ED is performed under the ED CLIA certificate #[id number].Result Comment: vsvnxcz9Wmptriqcz By: #### [id number] ####[facility] ([facility])[address] [place] [address]Urllova [Mass/Vol]127 mg/tULlhe19-818CiqxzjvqaxCleveland Clinic South Pointe HospitalComment on above:Order Comment: Waived Testing in the ED is performed under the ED CLIA certificate #[id number].Result Comment: yzzamia7Wjimkjzcs By: #### [id number] ####[facility] ([facility])[address] [place] [address]ci 02-06-2024 30NormalUniversity [facility]30NormalUniversity Chillicothe HospitalBASIC METABOLIC PANELon 31-93-0807Szlwl gap [Moles/Vol]17 mmol/LNormal7-20 [facility] HospitalComment on above:Performed By: #### [id number] ####[facility] ([facility])[address] [place], [place] [address]Pspyejo [Mass/Vol]8.2 mg/dLLow8.6-10.3UnCleveland Clinic South Pointe HospitalComment on above:Performed By: #### [id number] ####[facility] ([facility])[address] [place], [place] [address]Yzmizpie [Moles/Vol]100 mmol/IYtzjbn42-639LyehgvjkyrCleveland Clinic South Pointe HospitalComment on above:Performed By: #### [id number] ####[facility] ([facility])[address] [place], [place] [address]ZH3 [Moles/Vol]25 mmol/LNormal 21-31UnCleveland Clinic South Pointe HospitalComment on above:Performed By: #### [id number] ####[facility] ([facility])[address] [place], [place] [address]Dydyilwkfs [Mass/Vol]3.14 mg/dLHigh0.60-1.20UnCleveland Clinic South Pointe HospitalComment on above:Performed By: #### [id number] ####[facility] ([facility])[address] [place] [address]MLJCIGDFQB FILTRATION RATE ML/MIN/1.73 SQ M.EPEAFVRSF96.4 mL/min/1.73m*2Low>60.0UnCleveland Clinic South Pointe HospitalComment on above:Result Comment: [facility]???s estimated glomerular filtration rate (eGFR) will [...] anyone group of individuals.Performed By: #### [id number] ####[facility] ([facility])[address] [facility] [place], [place] [address]Zaozgqe [Mass/Vol]97 mg/ySLtykfo63-276MkeyfhctonCleveland Clinic South Pointe HospitalComment on above:Performed By: #### [id number] ####[facility] ([facility])[address] [place] [address]Vrsrrfbgh [Moles/Vol]4.3 mmol/LNormal3.5-5.1UnCleveland Clinic South Pointe HospitalComment on above:Performed By: #### [id number] ####[facility] ([facility])[address] [place] [address] Sodium [Moles/Vol]138 mmol/RDiyqqw863-743LjcuubwjxsCleveland Clinic South Pointe Hospital Comment on above:Performed By: #### [id number] ####[facility] ([facility])[address] [place] [address]Tmqg nitrogen [Mass/Vol]37 mg/dLHigh7-25UnCleveland Clinic South Pointe HospitalComment on above:Performed By: #### [id number] ####[facility] ([facility])[address] [place], [place] [address]NXWT NITROGEN/CREATININE (MASS RATIO) IN SER/PLAS11.8NormalUniversCleveland Clinic Marymount HospitalComment on above:Performed By: #### [id number] ####[facility] ([facility])[address] [place] [address]KDJ WITH AUTO DIFFERENTIALon 13-20-8123Rckxwoeee (Bld) [#/Vol]0.01 10*3/uLNormal0.00-0.20UnCleveland Clinic South Pointe HospitalComment on above:Performed By: #### [id number] ####[facility] ([facility])[address] [place], [place] [address]Whnosdcwy/100 WBC (Bld)0.1 %Normal0.0-1.0UnCleveland Clinic South Pointe HospitalComment on above:Performed By: #### [id number] ####[facility] ([facility])[address] [place], [place] [address]Wjjcdadvlpr (Bld) [#/Vol]0.00 10*3/uL Normal0.00-0.50UnCleveland Clinic South Pointe HospitalComment on above:Performed By: #### [id number] ####[facility] ([facility])[address] [place] [address] Eosinophils/100 WBC (Bld)0.0 %Normal0.0-6.0UnCleveland Clinic South Pointe Hospital Comment on above:Performed By: #### [id number] ####[facility] ([facility])[address] [place], [place] [address]Ubwzhyurgdh distribution width (RBC) [Ratio]16.2 % High11.5-15.0UnCleveland Clinic South Pointe HospitalComment on above:Performed By: #### [id number] ####[facility] ([facility])[address] [place] [address] ERYTHROCYTE MEAN CORPUSCULAR HEMOGLOBIN CONCENTRATION (G/DL) BY ENYQJKHCK84.7 g/dLLow32.0-35.0UnCleveland Clinic South Pointe HospitalComment on above:Performed By: #### [id number] ####[facility] ([facility])[address] [place], [place] [address]Yyuoiboklx (Bld) [Volume fraction]25.7 %Low36.0-48.0UnCleveland Clinic South Pointe HospitalComment on above:Performed By: #### [id number] ####[facility] ([facility])[address] [place], [place] [address]Fininaxewl (Bld) [Mass/Vol]7.9 g/dLLow 12.0-15.0UnCleveland Clinic South Pointe HospitalComment on above:Performed By: #### [id number] ####[facility] ([facility] CENTER)[address] [place], [place] [address]Vuifvtqd granulocytes (Bld) [#/Vol]0.07 10*3/uLNormal0.00-0.20UnCleveland Clinic South Pointe HospitalComment on above:Performed By: #### [id number] ####[facility] (AKER)[address] [place], [place] [address]Plrivjiw granulocytes/100 WBC (Bld)0.9 %Normal0.0-1.0UnCleveland Clinic South Pointe HospitalComment on above:Performed By: #### [id number] ####[facility] (BEAKER)[address] [place] [address] Lymphocytes (Bld) [#/Vol]0.46 10*3/uLLow1.20-4.00UnCleveland Clinic South Pointe HospitalComment on above:Performed By: #### [id number] ####[facility] (BEAKER)[address] [place], [place] [address]Irqybhadgun/100 WBC (Bld)6.2 %Low 20.0-45.0UnCleveland Clinic South Pointe HospitalComment on above:Performed By: #### [id number] ####[facility] (BEAKER)[address] [place], [place] [address]HTO (RBC) [Entitic mass]27.9 lvTqqzon26.0-33.0UnCleveland Clinic South Pointe Hospital Comment on above:Performed By: #### [id number] ####[facility] ([facility])[address] [place] [address]CSK (RBC) [Entitic vol]90.8 vDZqcfdc64.0-98.0 [facility] HospitalComment on above:Performed By: #### [id number] ####[facility] ([facility])[address] [place] [address]Xnybavrig (Bld) [#/Vol]0.19 10*3/uLNormal0.10-1.00UnCleveland Clinic South Pointe HospitalComment on above:Performed By: #### [id number] ####[facility] ([facility])[address] [place] [address]Iwpbdqfat/100 WBC (Bld)2.6 %Low5.0-12.0UnCleveland Clinic South Pointe HospitalComment on above:Performed By: #### [id number] ####[facility] ([facility])[address] [place] [address]Igrimhzvbdl (Bld) [#/Vol]6.77 10*3/uL Normal1.60-7.60UnCleveland Clinic South Pointe HospitalComment on above:Performed By: #### [id number] ####[facility] ([facility])[address] [place] [address] Neutrophils/100 WBC (Bld)91.1 %High40.0-72.0UnCleveland Clinic South Pointe Hospital Comment on above:Performed By: #### [id number] ####[facility] ([facility])[address] [place] [address]HLDZ (PER 100 WBCS) BY AUTOMATED COUNT0.0 %Normal0 [facility] HospitalComment on above:Performed By: #### [id number] ####[facility] ([facility])[address] [place] [address]MSZVQDIYW (10*3/UL) IN BLOOD AUTOMATED WESEQ562 10*3/mMWyvdrm920-235JxdrvpuwogCleveland Clinic South Pointe HospitalComment on above:Performed By: #### [id number] ####[facility] ([facility])[address] [place] [address]YPK (Bld) [#/Vol]2.83 10*6/uLLow 3.80-5.00UnCleveland Clinic South Pointe HospitalComment on above:Performed By: #### [id number] ####[facility] ([facility])[address] [place] [address]WDB (Bld) [#/Vol]7.43 10*3/uLNormal4.00-10.60UnCleveland Clinic South Pointe Hospital Comment on above:Performed By: #### [id number] ####[facility] ([facility])[address] [place] [address]RFHNUBZnx 53-50-3314ZYQZDBQXygbupXlgybvohoc of [place] Medical CenterCREATININE, URINE, RANDOMon 01-72-1607Zsxhyycswq (U) [Mass/Vol]82.0 mg/kRBzxier95-990XcxisuocezCleveland Clinic South Pointe HospitalComment on above:Performed By: #### [id number] ####[facility] ([facility])[address] [place] [address]MKLDCF ACID, PLASMAon 56-51-5093HADHNNK (MMOL/L) IN SER/PLAS 0.4 mmol/LLow0.5-2.2UnCleveland Clinic South Pointe HospitalComment on above: Performed By: #### [id number] ####[facility] ([facility])[address] [place] [address]HXFWCAOZIgh 05-00-6789Zkbozoyeh [Mass/Vol]3.6 mg/dLHigh1.9-2.7 [facility] HospitalComment on above:Performed By: #### [id number] ####[facility] ([facility])[address] [place] [address]XTEVFATEgd 93-02-3668JTNQMFCQTyyusmHrvzospohg of [place] Medical CenterNURSNOTENormal [facility] HospitalPOCT GLUCOSE METER UNSOLICITED RESULTSon 27-96-2133Ksfsmjg [Mass/Vol]150 mg/fBWvrw17-085SkkqdxnfazCleveland Clinic South Pointe HospitalComment on above:Order Comment: Waived Testing in the ED is performed under the ED CLIA certificate #[id number].Result Comment: [email or web address] By: #### [id number] ####[facility] (BEAKER)[address] [place] [address] Glucose [Mass/Vol]195 mg/wCVaht62-197MaxzsnfafiCleveland Clinic South Pointe HospitalComment on above:Order Comment: Waived Testing in the ED is performed under the ED CLIA certificate #[id number].Result Comment: ptcsbue0Uqwhkepia By: #### [id number] ####[facility] (BEAKER)[address] [place], [place] [address]Eamtlrg [Mass/Vol]123 mg/vTTaet63-545EggwxxnbwqCleveland Clinic South Pointe HospitalComment on above:Order Comment: Waived Testing in the ED is performed under the ED CLIA certificate #[id number].Result Comment: ukmlxwi0Nxsybujyg By: #### [id number] ####[facility] (BEAKER)[address] [place], [place] [address]Tszahvl [Mass/Vol]130 mg/mUBuyc17-518GyvkajjbqdPike Community HospitalComment on above:Order Comment: Waived Testing in the ED is performed under the ED CLIA certificate #[id number].Result Comment: kqpi9Hcyxixaqv By: #### [id number] ####[facility] ([facility]AKER)[address] [place], [place] [address]Gmniuzz [Mass/Vol]122 mg/aLMoji10-756BfhifqpxbwCleveland Clinic South Pointe HospitalComment on above:Order Comment: Waived Testing in the ED is performed under the ED CLIA certificate #[id number].Result Comment: vjex2Djehhlfia By: #### [id number] ####[facility] (BEAKER)[address] [place], [place] [address]AWGBRY, URINE, RANDOMon 73-05-2791Nipdel (U) [Moles/Vol]45 mmol/LNormalUnCleveland Clinic South Pointe HospitalComment on above:Performed By: #### [id number] ####[facility] ([facility])[address] [place], [place] [address]LDPOZRIAWX WITH MICROSCOPICon 71-99-3751FFBCQKRLH, TOTAL PRESENCE IN URINENegativeNormnmNegativeUnCleveland Clinic South Pointe HospitalComment on above:Performed By: #### [id number] ####[facility] ([facility])[address] [place], [place] [address]Zvmfdkp (U)CloudyAbnormal ClearUnCleveland Clinic South Pointe HospitalComment on above:Performed By: #### [id number] ####[facility] ([facility])[address] [place], [place] [address]Jphox (U)YellowNormalColorless, Yellow, Light-YellowUnCleveland Clinic South Pointe HospitalComment on above:Performed By: #### [id number] ####[facility] ([facility])[address] [place], [place] [address]WTTLUYV (MG/DL) IN URINENormalNormal NormalUnCleveland Clinic South Pointe HospitalComment on above:Performed By: #### [id number] ####[facility] ([facility])[address] [place] [address] HEMOGLOBIN PRESENCE IN URINEModerateAbnormnmNegCommunity Memorial HospitalComment on above:Performed By: #### [id number] ####[facility] ([facility])[address] [place], [place] [address]Ffupoom Ql (U)TraceAbnormalNegative [facility] HospitalComment on above:Performed By: #### [id number] ####[facility] ([facility])[address] [place], [place] [address]CZIUQPBWC ESTERASE PRESENCE IN URINE BY TEST STRIPNegativeNormalNegativeUnCleveland Clinic South Pointe HospitalComment on above:Performed By: #### [id number] ####[facility] ([facility])[address] [place], [place] [address]VCARY (#/LPF) IN URINE SEDIMENTOccasionalNormalNone Seen, Occasional, FewUnCleveland Clinic South Pointe HospitalComment on above:Performed By: #### [id number] ####[facility] ([facility])[address] [place] [address]FUDWFZD PRESENCE IN URINENegative NormalNegativeUnCleveland Clinic South Pointe HospitalComment on above:Performed By: #### [id number] ####[facility] ([facility])[address] [place] [address]hS (U)5.5 [pH]Normal5.0-8.0[facility] HospitalComment on above: Performed By: #### [id number] ####[facility] ([facility])[address] [place] [address]Kefbndg (U) [Mass/Vol]30 mg/dLAbnormalNegativeUnCleveland Clinic South Pointe HospitalComment on above:Performed By: #### [id number] ####[facility] ([facility])[address] [place] [address]CBC (#/HPF) IN URINE SEDIMENT>20AbnormalNone Seen, 0-2UnCleveland Clinic South Pointe HospitalComment on above:Performed By: #### [id number] ####[facility] ([facility])[address] [place] [address]Qoswxakm gravity (U) [Rel density]>1.126Fogs0.010-1.030 [facility] HospitalComment on above:Performed By: #### [id number] ####[facility] ([facility])[address] [place], [place] [address]OMXGXXRS EPITHELIAL CELLS (#/LPF) IN URINE SEDIMENTOccasionalNormalNone Seen, Occasional, FewUnCleveland Clinic South Pointe HospitalComment on above:Performed By: #### [id number] ####[facility] ([facility])[address] [place] [address] UROBILINOGEN (MG/DL) IN URINENormalNormalNormalUniversCleveland Clinic Marymount HospitalComment on above:Performed By: #### [id number] ####[facility] (BEAKER)[address] [place], [place] [address]AJM (LEUKOCYTE) (#/HPF) IN URINE SEDIMENT6-10AbnormalNone Seen, 0-2UnCleveland Clinic South Pointe HospitalComment on above:Performed By: #### [id number] ####[facility] (BEAKER)[address] [place], [place] [address]29ig 08-31-[address]GfxgbrHytclmpwrw of [place] [facility] Mwnsgv97 NormalUnCleveland Clinic South Pointe HospitalANESon 60-06-7567PVUORxptxsXnriebxmbi of [place] Medical CenterBASIC METABOLIC PANELon 48-42-7757Rehpj gap [Moles/Vol] 13 mmol/LNormal7-20[facility] HospitalComment on above:Performed By: #### [id number] ####[facility] (BEAKER)[address] [place] [address] Calcium [Mass/Vol]8.1 mg/dLLow8.6-10.3UnCleveland Clinic South Pointe HospitalComment on above:Performed By: #### [id number] ####[facility] (BEAKER)[address] [place], [place] [address]Ukxhegiu [Moles/Vol]95 mmol/QMkf13-390XluhsmkmqqCleveland Clinic South Pointe HospitalComment on above:Performed By: #### [id number] ####[facility] (BEAKER)[address] [place], [place] [address]WO3 [Moles/Vol]32 mmol/RKqjg35-60 [facility] HospitalComment on above:Performed By: #### [id number] ####[facility] (BEAKER)[address] [place], [place] [address]Evxttubffh [Mass/Vol]2.79 mg/dLHigh0.60-1.20UnCleveland Clinic South Pointe HospitalComment on above:Performed By: #### [id number] ####[facility] (BEAKER)[address] [place], [place] [address]JMMIHHISBH FILTRATION RATE ML/MIN/1.73 SQ M.FCJTYIMKI22.6 mL/min/1.73m*2Low>60.0UnCleveland Clinic South Pointe HospitalComment on above:Result Comment: [facility]???s estimated glomerular filtration rate (eGFR) will [...] anyone group of individuals.Performed By: #### [id number] ####[facility] ([facility])[address] [place], [place] [address]Gnytnqa [Mass/Vol]95 mg/gYVwodct84-782LwymfigzpbCleveland Clinic South Pointe HospitalComment on above:Performed By: #### [id number] ####[facility] ([facility])[address] [place], [place] [address]Jasfddgqs [Moles/Vol]3.6 mmol/LNormal3.5-5.1UnCleveland Clinic South Pointe HospitalComment on above:Performed By: #### [id number] ####[facility] ([facility])[address] [place] [address] Sodium [Moles/Vol]136 mmol/EAkyvcr004-648KsczqrzklcCleveland Clinic South Pointe Hospital Comment on above:Performed By: #### [id number] ####[facility] ([facility])[address] [place], [place] [address]Mtfd nitrogen [Mass/Vol]29 mg/dLHigh7-25UnCleveland Clinic South Pointe HospitalComment on above:Performed By: #### [id number] ####[facility] ([facility])[address] [place], [place] [address]EEVR NITROGEN/CREATININE (MASS RATIO) IN SER/PLAS10.4NormalUniversCleveland Clinic Marymount HospitalComment on above:Performed By: #### [id number] ####[facility] ([facility])[address] [place], [place] [address]ICO WITH AUTO DIFFERENTIALon 93-58-5929Gtxbmvmcc (Bld) [#/Vol]0.02 10*3/uLNormal0.00-0.20UnCleveland Clinic South Pointe HospitalComment on above:Performed By: #### [id number] ####[facility] ([facility])[address] [place], [place] [address]Npvuqgzuo/100 WBC (Bld)0.3 %Normal0.0-1.0UnCleveland Clinic South Pointe HospitalComment on above:Performed By: #### [id number] ####[facility] ([facility])[address] [place], [place] [address]Zppypqfiqog (Bld) [#/Vol]0.30 10*3/uL Normal0.00-0.50UnCleveland Clinic South Pointe HospitalComment on above:Performed By: #### [id number] ####[facility] ([facility])[address] [place] [address] Eosinophils/100 WBC (Bld)4.0 %Normal0.0-6.0UnCleveland Clinic South Pointe Hospital Comment on above:Performed By: #### [id number] ####[facility] ([facility])[address] [place], [place] [address]Sdqmoqjdmbx distribution width (RBC) [Ratio]16.3 % High11.5-15.0UnCleveland Clinic South Pointe HospitalComment on above:Performed By: #### [id number] ####[facility] ([facility])[address] [place] [address] ERYTHROCYTE MEAN CORPUSCULAR HEMOGLOBIN CONCENTRATION (G/DL) BY OVUEASGLV59.2 g/dLLow32.0-35.0UnCleveland Clinic South Pointe HospitalComment on above:Performed By: #### [id number] ####[facility] ([facility])[address] [place], [place] [address]Wduejirwoc (Bld) [Volume fraction]24.8 %Low36.0-48.0UnCleveland Clinic South Pointe HospitalComment on above:Performed By: #### [id number] ####[facility] (BEAKER)[address] [place], [place] [address]Zdcjatjnbs (Bld) [Mass/Vol]7.5 g/dLLow 12.0-15.0UnCleveland Clinic South Pointe HospitalComment on above:Performed By: #### [id number] ####[facility] ([facility])[address] [place] [address]Smmbrelf granulocytes (Bld) [#/Vol]0.04 10*3/uLNormal0.00-0.20UnCleveland Clinic South Pointe HospitalComment on above:Performed By: #### [id number] ####[facility] ([facility])[address] [place] [address]Ypgdopja granulocytes/100 WBC (Bld)0.5 %Normal0.0-1.0UnCleveland Clinic South Pointe HospitalComment on above:Performed By: #### [id number] ####[facility] ([facility])[address] [place] [address] Lymphocytes (Bld) [#/Vol]0.58 10*3/uLLow1.20-4.00UnCleveland Clinic South Pointe HospitalComment on above:Performed By: #### [id number] ####[facility] ([facility])[address] [place] [address]Wugbdiaswrs/100 WBC (Bld)7.7 %Low 20.0-45.0UnCleveland Clinic South Pointe HospitalComment on above:Performed By: #### [id number] ####[facility] ([facility])[address] [place] [address]SVN (RBC) [Entitic mass]27.4 zgGmoxjw06.0-33.0UnCleveland Clinic South Pointe Hospital Comment on above:Performed By: #### [id number] ####[facility] ([facility])[address] [place] [address]BAA (RBC) [Entitic vol]90.5 aRRithec91.0-98.0 [facility] HospitalComment on above:Performed By: #### [id number] ####[facility] ([facility])[address] [place] [address]Erktbzrpo (Bld) [#/Vol]0.52 10*3/uLNormal0.10-1.00UnCleveland Clinic South Pointe HospitalComment on above:Performed By: #### [id number] ####[facility] ([facility])[address] [place] [address]Qoeeqwsyh/100 WBC (Bld)6.9 %Normal5.0-12.0UnCleveland Clinic South Pointe HospitalComment on above:Performed By: #### [id number] ####[facility] ([facility])[address] [place] [address]Suabpsbgrlz (Bld) [#/Vol] 6.03 10*3/uLNormal1.60-7.60UnCleveland Clinic South Pointe HospitalComment on above: Performed By: #### [id number] ####[facility] ([facility])[address] [place] [address]Cdyjgdiilrf/100 WBC (Bld)80.6 %High40.0-72.0UnCleveland Clinic South Pointe HospitalComment on above:Performed By: #### [id number] ####[facility] ([facility])[address] [place] [address]YYIB (PER 100 WBCS) BY AUTOMATED COUNT0.0 %Pxkyfg4OphjkxbddaCleveland Clinic South Pointe HospitalComment on above: Performed By: #### [id number] ####[facility] ([facility])[address] [place] [address]LIHZEJBZB (10*3/UL) IN BLOOD AUTOMATED [id number] 10*3/uLNormal 150-400UnCleveland Clinic South Pointe HospitalComment on above:Performed By: #### [id number] ####[facility] ([facility])[address] [place] [address]NHX (Bld) [#/Vol]2.74 10*6/uLLow3.80-5.00UnCleveland Clinic South Pointe HospitalComment on above:Performed By: #### [id number] ####[facility] ([facility])[address] [place] [address]BOP (Bld) [#/Vol]7.49 10*3/uLNormal4.00-10.60UnCleveland Clinic South Pointe HospitalComment on above:Performed By: #### [id number] ####[facility] ([facility])[address] [place] [address]NMKIXDShi 02-05-2024 CONSULTNormalUniversCleveland Clinic Marymount HospitalHPon 31-85-9485JJJ&P reviewed. The patient was examined and there are no changes to the H&P.NormalUnCleveland Clinic South Pointe HospitalMAGNESIUMon 51-61-8648Okrvfskes [Mass/Vol]3.6 mg/dLHigh 1.9-2.7UnCleveland Clinic South Pointe HospitalComment on above:Performed By: #### [id number] ####[facility] ([facility])[address] [place], [place] [address]XQ BRAIN WO CONTRASTon 01-10-1497DA BRAIN WO CONTRASTInvalid Interpretation Code [facility] HospitalNURSNOTEon 97-05-1516JBDEFSMUNtjllbEvpzvcbpai of [place] Medical CenterNALTA VISTA REGIONAL HOSPITALNOTEReport called to Kayleigh MELGAR all questions answered.NormalUnCleveland Clinic South Pointe HospitalOPNOTEon 14-32-6482QINWSM NormalUnCleveland Clinic South Pointe HospitalPOCT GLUCOSE METER UNSOLICITED RESULTS on 23-83-4805Wybmxsw [Mass/Vol]117 mg/uYWnfs39-517KuwilfnmbqCleveland Clinic South Pointe HospitalComment on above:Order Comment: Waived Testing in the ED is performed under the ED CLIA certificate #[id number].Result Comment: anws2Whslkjmfs By: #### [id number] ####[facility] ([facility])[address] [place] [address] Glucose [Mass/Vol]102 mg/kFYcphut96-404DxlhofqnryCleveland Clinic South Pointe Hospital Comment on above:Order Comment: Waived Testing in the ED is performed under the ED CLIA certificate #[id number].Result Comment: leulerPerformed By: #### [id number] ####[facility] ([facility])[address] [place], [place] [address]Wlpeuvh [Mass/Vol]100 mg/tEEinpsj33-492PzxmvcyzlbCleveland Clinic South Pointe HospitalComment on above:Order Comment: Waived Testing in the ED is performed under the ED CLIA certificate #[id number].Result Comment: svandygPerformed By: #### [id number] ####[facility] ([facility])[address] [place], [place] [address]Mzgjrwv [Mass/Vol]114 mg/aAMxeg48-722HjidxqdrkrCleveland Clinic South Pointe HospitalComment on above:Order Comment: Waived Testing in the ED is performed under the ED CLIA certificate #[id number].Result Comment: agoettiPerformed By: #### [id number] ####[facility] ([facility])[address] [place], [place] [address]URPLiq 32-30-5708MVLSFqpkliOcrjqjizna of [place] Medical CenterANTI-XA (HEPARIN LEVEL)on 54-18-5732EMYQDZJ UNFRACTIONATED (U/ML) IN PPP BY CHROMOGENIC METHOD>1.00 Critically high0.3-0.7UnCleveland Clinic South Pointe HospitalComment on above:Result Comment: Rivaroxaban and Apixaban will interfere with the anti Xa assay used to monitor UFH and LMWH.Performed By: #### [id number] ####[facility] ([facility])[address] [place], [place] [address]LZXHlq 31-99-5625WHMQMTKEH PARTIAL THROMBOPLASTIN TIME IN PPP BY COAGULATION ASSAY45.7 BcfpacdWtux42.0-35.0 [facility] HospitalComment on above:Order Comment: Check aPTT every 6 hours while on heparin infusion, or per protocol.Result Comment: Clinical significance of the APTT is questionable in the presence of heparin. Performed By: #### [id number] ####[facility] ([facility])[address] [place], [place] [address]WTBZHIXJN PARTIAL THROMBOPLASTIN TIME IN PPP BY COAGULATION ASSAY40.3 MubexmpQgqd28.0-35.0UnCleveland Clinic South Pointe HospitalComment on above:Order Comment: Check aPTT every 6 hours while on heparin infusion, or per protocol.Result Comment: Clinical significance of the APTT is questionable in the presence of heparin.Performed By: #### [id number] ####[facility] ([facility])[address] [place], [place] [address]NCOWM METABOLIC PANELon 02-04-2024 Anion gap [Moles/Vol]15 mmol/LNormal7-20UnCleveland Clinic South Pointe Hospital Comment on above:Performed By: #### [id number] ####[facility] ([facility])[address] [place], [place] [address]Ueggcxc [Mass/Vol]8.0 mg/dLLow8.6-10.3UnCleveland Clinic South Pointe HospitalComment on above:Performed By: #### [id number] ####[facility] ([facility])[address] [place], [place] [address]Eaqjgrmj [Moles/Vol]96 mmol/TCdb83-088QzwykqvqwaCleveland Clinic South Pointe HospitalComment on above:Performed By: #### [id number] ####[facility] ([facility])[address] [place], [place] [address]JS5 [Moles/Vol]29 mmol/JQmmhlx42-62XzrsvtnhyeCleveland Clinic South Pointe HospitalComment on above:Performed By: #### [id number] ####[facility] ([facility])[address] [place], [place] [address]Byoshfrfvy [Mass/Vol]1.87 mg/dLHigh0.60-1.20UnCleveland Clinic South Pointe HospitalComment on above:Performed By: #### [id number] ####[facility] ([facility])[address] [place], [place] [address]JYYOGUMMZK FILTRATION RATE ML/MIN/1.73 SQ M.MDHKJJEJV07.9 mL/min/1.73m*2Low>60.0UnCleveland Clinic South Pointe HospitalComment on above:Result Comment: [facility]???s estimated glomerular filtration rate (eGFR) will [...] anyone group of individuals.Performed By: #### [id number] ####[facility] ([facility])[address] [place] [address]Vjxrkvm [Mass/Vol]95 mg/jCNsixxb35-521WyvlvvrddqCleveland Clinic South Pointe HospitalComment on above:Performed By: #### [id number] ####[facility] ([facility])[address] [place] [address]Sbmzmdhxv [Moles/Vol]4.0 mmol/LNormal3.5-5.1UnCleveland Clinic South Pointe HospitalComment on above:Performed By: #### [id number] ####[facility] ([facility])[address] [place], [place] [address]Xqozqq [Moles/Vol]136 mmol/L Zcdnwc325-533BnauuhqfnjCleveland Clinic South Pointe HospitalComment on above:Performed By: #### [id number] ####[facility] ([facility])[address], [place] [address]Ewae nitrogen [Mass/Vol]24 mg/dLNormal7-25UnCleveland Clinic South Pointe HospitalComment on above:Performed By: #### [id number] ####[facility] ([facility])[address] [place], [place] [address]SYXV NITROGEN/CREATININE (MASS RATIO) IN SER/PLAS12.8Normal [facility] HospitalComment on above:Performed By: #### [id number] ####[facility] ([facility])[address] [facility] [place] [address]CQZ WITH AUTO DIFFERENTIALon [id number] (Bld) [#/Vol]0.02 10*3/uLNormal0.00-0.20 [facility] HospitalComment on above:Performed By: #### [id number] ####[facility] ([facility])[address] [place], [place] [address]Nkcjgcuqf/100 WBC (Bld)0.2 %Normal0.0-1.0UnCleveland Clinic South Pointe HospitalComment on above: Performed By: #### [id number] ####[facility] (AKER)[address] [place] [address]Mmsdgkuifzt (Bld) [#/Vol]0.18 10*3/uLNormal0.00-0.50 [facility] HospitalComment on above:Performed By: #### [id number] ####[facility] ([facility])[address] [place], [place] [address]Ekrpyleenbi/100 WBC (Bld)2.2 %Normal0.0-6.0UnCleveland Clinic South Pointe HospitalComment on above: Performed By: #### [id number] ####[facility] ([facility])[address] [place], [place] [address]Ekcpdivvxby distribution width (RBC) [Ratio]16.1 %High 11.5-15.0UnCleveland Clinic South Pointe HospitalComment on above:Performed By: #### [id number] ####[facility] ([facility])[address] [place] [address] ERYTHROCYTE MEAN CORPUSCULAR HEMOGLOBIN CONCENTRATION (G/DL) BY QFGNZLHDZ77.4 g/dLLow32.0-35.0UnCleveland Clinic South Pointe HospitalComment on above:Performed By: #### [id number] ####[facility] (BEAKER)[address] [place], [place] [address]Fdmszwdjhm (Bld) [Volume fraction]28.0 %Low36.0-48.0UnCleveland Clinic South Pointe HospitalComment on above:Performed By: #### [id number] ####[facility] ([facility])[address] [place], [place] [address]Hdhofmwdvz (Bld) [Mass/Vol]8.8 g/dLLow 12.0-15.0UnCleveland Clinic South Pointe HospitalComment on above:Performed By: #### [id number] ####[facility] (BEAKER)[address] [place], [place] [address]Cywrhjry granulocytes (Bld) [#/Vol]0.04 10*3/uLNormal0.00-0.20UnCleveland Clinic South Pointe HospitalComment on above:Performed By: #### [id number] ####[facility] ([facility])[address] [place], [place] [address]Waxylhen granulocytes/100 WBC (Bld)0.5 %Normal0.0-1.0UnCleveland Clinic South Pointe HospitalComment on above:Performed By: #### [id number] ####[facility] ([facility])[address] [place] [address] Lymphocytes (Bld) [#/Vol]0.52 10*3/uLLow1.20-4.00UnCleveland Clinic South Pointe HospitalComment on above:Performed By: #### [id number] ####[facility] ([facility])[address] [place], [place] [address]Ypbjrkputht/100 WBC (Bld)6.5 %Low 20.0-45.0UnCleveland Clinic South Pointe HospitalComment on above:Performed By: #### [id number] ####[facility] ([facility])[address] [place], [place] [address]NFO (RBC) [Entitic mass]28.3 tyYhoeyy89.0-33.0UnCleveland Clinic South Pointe Hospital Comment on above:Performed By: #### [id number] ####[facility] ([facility])[address] [place], [place] [address]DRO (RBC) [Entitic vol]90.0 yUGskygo70.0-98.0 [facility] HospitalComment on above:Performed By: #### [id number] ####[facility] ([facility])[address] [place], [place] [address]Efoddzhgo (Bld) [#/Vol]0.65 10*3/uLNormal0.10-1.00UnCleveland Clinic South Pointe HospitalComment on above:Performed By: #### [id number] ####[facility] ([facility])[address] [place] [address]Imgsmeyck/100 WBC (Bld)8.1 %Normal5.0-12.0[facility] HospitalComment on above:Performed By: #### [id number] ####[facility] ([facility])[address] [place] [address]Cbgpaakmutf (Bld) [#/Vol] 6.61 10*3/uLNormal1.60-7.60UnCleveland Clinic South Pointe HospitalComment on above: Performed By: #### [id number] ####[facility] ([facility])[address] [place] [address]Sapzcjlqqhy/100 WBC (Bld)82.5 %High40.0-72.0UnCleveland Clinic South Pointe HospitalComment on above:Performed By: #### [id number] ####[facility] ([facility])[address] [place] [address]FGUP (PER 100 WBCS) BY AUTOMATED COUNT0.0 %Smtvvd6KnslekewdzCleveland Clinic South Pointe HospitalComment on above: Performed By: #### [id number] ####[facility] ([facility])[address] [place] [address]KRITEEJFY (10*3/UL) IN BLOOD AUTOMATED [id number] 10*3/uLNormal 150-400UnCleveland Clinic South Pointe HospitalComment on above:Performed By: #### [id number] ####[facility] ([facility])[address] [place] [address]YEA (Bld) [#/Vol]3.11 10*6/uLLow3.80-5.00UnCleveland Clinic South Pointe HospitalComment on above:Performed By: #### [id number] ####[facility] ([facility])[address] [place] [address]JTJ (Bld) [#/Vol]8.02 10*3/uLNormal4.00-10.60UnCleveland Clinic South Pointe HospitalComment on above:Performed By: #### [id number] ####[facility] ([facility])[address] [facility] [place], [place] [address]GE BRAIN PERFUSIONon 06-17-7238RC BRAIN PERFUSIONInvalid Interpretation CodeUnCleveland Clinic South Pointe HospitalCT HEAD WO IV CONTRASTon 96-31-1376WL HEAD WO IV CONTRASTNormal [facility] HospitalCTA HEAD W IV CONTRASTon 33-95-0081JFX HEAD W IV CONTRASTNormalUniversCleveland Clinic Marymount HospitalCTA NECK W IV CONTRASTon 81-88-2646LYK NECK W IV CONTRASTInvalid Interpretation CodeUnCleveland Clinic South Pointe HospitalMAGNESIUMon 92-83-4551Llmltkbve [Mass/Vol]3.1 mg/dLHigh1.9-2.7 [facility] HospitalComment on above:Performed By: #### [id number] ####[facility] ([facility])[address] [place], [place] [address]KYFK GLUCOSE METER UNSOLICITED RESULTSon 94-75-2651Mxfxwpz [Mass/Vol]172 mg/gKVxgr86-553 [facility] HospitalComment on above:Order Comment: Waived Testing in the ED is performed under the ED CLIA certificate #[id number].Result Comment: hjvftrg1Eocjkgpfr By: #### [id number] ####[facility] ([facility])[address] [place], [place] [address]Pnulzej [Mass/Vol]113 mg/wYKzjc39-662IckiajzvhqCleveland Clinic South Pointe HospitalComment on above:Order Comment: Waived Testing in the ED is performed under the ED CLIA certificate #[id number].Result Comment: ezabors2 Performed By: #### [id number] ####[facility] ([facility])[address] [place], [place] [address]ZCSXOG BLOOD GAS WITH IONIZED CALCIUMon 35-06-4324Jvft excess Calc (BldV) [Moles/Vol]10.1 mmol/LNormalUnCleveland Clinic South Pointe Hospital Comment on above:Performed By: #### [id number] ####[facility] [id number] [place] [address] USACALCIUM IONIZED (MMOL/L) IN BLOOD1.18 mmol/L Normal1.15-1.33UnCleveland Clinic South Pointe HospitalComment on above:Performed By: #### [id number] ####[facility] [id number] [place] [address] [place] CO2 (BldV) [Partial pressure]62 mm[Hg]Hint97-95GabfsbtzfgCleveland Clinic South Pointe HospitalComment on above:Performed By: #### [id number] ####[facility] [id number] [place] [address] USAHCO3 (Bld) [Moles/Vol]37.5 mmol/L NormalUnCleveland Clinic South Pointe HospitalComment on above:Performed By: #### [id number] ####[facility] [id number] [place] [address] USAOxygen (BldV) [Partial pressure]49 mm[Hg]Lvuw87-13JtnefvfounCleveland Clinic South Pointe Hospital Comment on above:Performed By: #### [id number] ####[facility] [id number] [place] [address] USAOXYGEN SATURATION (%) IN VENOUS BLOOD79.9 %High 65.0-75.0UnCleveland Clinic South Pointe HospitalComment on above:Performed By: #### [id number] ####[facility] [id number] [place] [address] USAPH OF VENOUS BLOOD7.68Ljkqqz2.31-7.41UnCleveland Clinic South Pointe HospitalComment on above:Performed By: #### [id number] ####[facility] [id number] [place] [address] TPL18up 54-74-220532OzxngnXdsyxphdls [facility] Xzvnwk29BzzqgfMynihncnikEast [facility] 26-19-0664DDMFXAFRF PARTIAL THROMBOPLASTIN TIME IN PPP BY COAGULATION ASSAY91.2 ApmdgboBlzd91.0-35.0 [facility] HospitalComment on above:Order Comment: Check aPTT every 6 hours while on heparin infusion, or per protocol.Result Comment: Clinical significance of the APTT is questionable in the presence of heparin. Performed By: #### [id number] ####[facility] (BEAKER)[address] [place], [place] [address]AFKRFTWR BLOOD GAS WITH CO-OXIMETRYon 11-19-9027Skbl excess Calc (Bld) [Moles/Vol]8.6 mmol/LHigh-2.0-3.0UnCleveland Clinic South Pointe Hospital Comment on above:Performed By: #### [id number] ####[facility] [id number] [address] USACARBOXYHEMOGLOBIN/HEMOGLOBIN TOTAL % IN BLOOD 1.6 %Normal0.0-3.0UnCleveland Clinic South Pointe HospitalComment on above:Performed By: #### [id number] ####[facility] [id number] [place] [address] USACO2 (Bld) [Partial pressure]47 mm[Hg]Ncebgs52-84NchlebazrfCleveland Clinic South Pointe HospitalComment on above:Performed By: #### [id number] ####[facility] [id number] [place] [address] USADEOXYGENATED HEMOGLOBIN IN BLOOD2.3 %Normal1-5UnCleveland Clinic South Pointe HospitalComment on above:Performed By: #### [id number] ####[facility] [id number] [address] [place] HCO3 (Bld) [Moles/Vol]33.4 mmol/LHigh21.0-28.0UnCleveland Clinic South Pointe HospitalComment on above:Performed By: #### [id number] ####[facility] [id number] [place] [address] USAHemoglobin (Bld) [Mass/Vol]9.4 g/dL Low11.7-17.4UnCleveland Clinic South Pointe HospitalComment on above:Performed By: #### [id number] ####[facility] [id number] [place] [address] [facility] QJC2KeepqfMhdxyvrggeCleveland Clinic Marymount HospitalComment on above:Performed By: #### [id number] ####[facility] [id number] [place] [address] [place] METHEMOGLOBIN/100 IN BLOOD0.5 %Normal0.0-1.5UnC[facility] Clinic South Pointe Hospital Comment on above:Performed By: #### [id number] ####[facility] [id number] [address] USAOxygen (Bld) [Partial pressure]72 mm[Hg]Low 83-100UnCleveland Clinic South Pointe HospitalComment on above:Performed By: #### [id number] ####[facility] [id number] [place] [address] USAOXYGEN SATURATION (%) IN ARTERIAL BLOOD97.7 %Pzrmdq04.0-98.0UnCleveland Clinic South Pointe HospitalComment on above:Performed By: #### [id number] ####[facility] [id number] [place] [address] USAOXYGENATED HEMOGLOBIN IN BLOOD95.7 %High90.0-95.0UnCleveland Clinic South Pointe HospitalComment on above:Performed By: #### [id number] ####[facility] [id number] [place] [address] [place] pH (Bld)7.46 [pH]High7.35-7.45UnCleveland Clinic South Pointe HospitalComment on above:Performed By: #### [id number] ####[facility] [id number] [place] [address] USASOURCE OF OXYGENNasal cannulaNormalUniversity Chillicothe HospitalComment on above:Performed By: #### [id number] ####[facility] [id number] [facility] [address] USABASIC METABOLIC PANELon 02-03-2024 Anion gap [Moles/Vol]14 mmol/LNormal7-20UnCleveland Clinic South Pointe Hospital Comment on above:Performed By: #### [id number] ####[facility] (BEAKER)[address] [facility] [place] [facility], [place] [address]Agresao [Mass/Vol]8.3 mg/dLLow8.6-10.3UnCleveland Clinic South Pointe HospitalComment on above:Performed By: #### [id number] ####[facility] (BEAKER)[address] [place] [address]Otjkawnx [Moles/Vol]94 mmol/PIvd31-958MncvwvtqktCleveland Clinic South Pointe HospitalComment on above:Performed By: #### [id number] ####[facility] ([facility])[address] [place] [address]PV7 [Moles/Vol]31 mmol/BRarcvx10-47LdvxptaohdCleveland Clinic South Pointe HospitalComment on above:Performed By: #### [id number] ####[facility] ([facility])[address] [place] [address]Icrjgwvfiy [Mass/Vol]1.51 mg/dLHigh0.60-1.20UnCleveland Clinic South Pointe HospitalComment on above:Performed By: #### [id number] ####[facility] ([facility])[address] [place], [place] [address]VXBPTPHCWO FILTRATION RATE ML/MIN/1.73 SQ M.RQDUUEQGL53.7 mL/min/1.73m*2Low>60.0UnCleveland Clinic South Pointe HospitalComment on above:Result Comment: [facility]???s estimated glomerular filtration rate (eGFR) will [...] anyone group of individuals.Performed By: #### [id number] ####[facility] ([facility])[address] [place] [address]Buozlpe [Mass/Vol]155 mg/dOCilx41-925DyvatuyubkCleveland Clinic South Pointe HospitalComment on above:Performed By: #### [id number] ####[facility] ([facility])[address] [place] [address]Bkrufvhes [Moles/Vol]4.0 mmol/LNormal3.5-5.1UnCleveland Clinic South Pointe HospitalComment on above:Performed By: #### [id number] ####[facility] (BEAKER)[address] [place], [place] [address]Xoyhsc [Moles/Vol]135 mmol/LLow 136-145UnCleveland Clinic South Pointe HospitalComment on above:Performed By: #### [id number] ####[facility] (BEAKER)[address] [place], [place] [address]Pumz nitrogen [Mass/Vol]19 mg/dLNormal7-25UnCleveland Clinic South Pointe HospitalComment on above:Performed By: #### [id number] ####[facility] (BEAKER)[address] [place], [place] [address]UTXD NITROGEN/CREATININE (MASS RATIO) IN SER/PLAS12.6Normal [facility] HospitalComment on above:Performed By: #### [id number] ####[facility] (BEAKER)[address] [place], [place] [address]Ksdbr gap [Moles/Vol]18 mmol/LNormal7-20UnCleveland Clinic South Pointe HospitalComment on above:Performed By: #### [id number] ####[facility] (BEAKER)[address] [place], [place] [address]Lmhxdbp [Mass/Vol]9.0 mg/dLNormal8.6-10.3UnCleveland Clinic South Pointe HospitalComment on above:Performed By: #### [id number] ####[facility] (BEAKER)[address] [place], [place] [address]Jteykhac [Moles/Vol]96 mmol/HFjg39-401 [facility] HospitalComment on above:Performed By: #### [id number] ####[facility] (BEAKER)[address] [place], [place] [address]AD3 [Moles/Vol] 26 mmol/JCsevye28-98DyawbfrpitCleveland Clinic South Pointe HospitalComment on above: Performed By: #### [id number] ####[facility] (BEAKER)[address] [place], [place] [address]Pqpxdltmie [Mass/Vol]1.55 mg/dLHigh0.60-1.20UnCleveland Clinic South Pointe HospitalComment on above:Performed By: #### [id number] ####[facility] ([facility])[address] [place] [address]PYPBEDESNC FILTRATION RATE ML/MIN/1.73 SQ M.DDUTOTVYP38.7 mL/min/1.73m*2Low>60.0UnCleveland Clinic South Pointe Hospital Comment on above:Result Comment: [facility]???s estimated glomerular filtration rate (eGFR) will [...] anyone group of individuals.Performed By: #### [id number] ####[facility] ([facility])[address] [place] [address]Wyrsaft [Mass/Vol]90 mg/gEKclvld49-036BplewyxczgCleveland Clinic South Pointe HospitalComment on above:Performed By: #### [id number] ####[facility] ([facility])[address] [place] [address]Rtvsmxmyc [Moles/Vol]4.6 mmol/LNormal3.5-5.1UnCleveland Clinic South Pointe HospitalComment on above:Performed By: #### [id number] ####[facility] ([facility])[address] [place] [address]Zmlrgv [Moles/Vol]135 mmol/LLow 136-145UnCleveland Clinic South Pointe HospitalComment on above:Performed By: #### [id number] ####[facility] ([facility])[address] [place], [place] [address]Ogyz nitrogen [Mass/Vol]20 mg/dLNormal7-25UnCleveland Clinic South Pointe HospitalComment on above:Performed By: #### [id number] ####[facility] ([facility])[address] [place], [place] [address]QUCO NITROGEN/CREATININE (MASS RATIO) IN SER/PLAS12.9Normal [facility] HospitalComment on above:Performed By: #### [id number] ####[facility] ([facility])[address] [place] [address]ZQKRWYU, IONIZED on 51-66-8694ZCDVSTV IONIZED (MMOL/L) IN BLOOD1.13 mmol/LLow1.15-1.33UnCleveland Clinic South Pointe HospitalComment on above:Performed By: #### CALCIUM, IONIZED ####[facility] [id number] [place] [address] USACBC WITH AUTO DIFFERENTIALon 59-10-3208Euvxhmekd (Bld) [#/Vol]0.02 10*3/uLNormal0.00-0.20 [facility] HospitalComment on above:Performed By: #### [id number] ####[facility] ([facility])[address] [place], [place] [address]Sfrurzxjf/100 WBC (Bld)0.3 %Normal0.0-1.0UnCleveland Clinic South Pointe HospitalComment on above: Performed By: #### [id number] ####[facility] ([facility])[address] [place], [place] [address]Aivkxhwdrzt (Bld) [#/Vol]0.22 10*3/uLNormal0.00-0.50 [facility] HospitalComment on above:Performed By: #### [id number] ####[facility] ([facility])[address] [place], [place] [address]Oyxqdgtpksc/100 WBC (Bld)3.4 %Normal0.0-6.0UnCleveland Clinic South Pointe HospitalComment on above: Performed By: #### [id number] ####[facility] ([facility])[address] [place], [place] [address]Qeftxdgvdnp distribution width (RBC) [Ratio]16.0 %High 11.5-15.0UnCleveland Clinic South Pointe HospitalComment on above:Performed By: #### [id number] ####[facility] (BEAKER)[address] [place] [address] ERYTHROCYTE MEAN CORPUSCULAR HEMOGLOBIN CONCENTRATION (G/DL) BY EHZOKNRMP07.5 g/dLLow32.0-35.0UnCleveland Clinic South Pointe HospitalComment on above:Performed By: #### [id number] ####[facility] ([facility])[address] [place], [place] [address]Cixrxxlbaf (Bld) [Volume fraction]26.6 %Low36.0-48.0UnCleveland Clinic South Pointe HospitalComment on above:Performed By: #### [id number] ####[facility] ([facility])[address] [place], [place] [address]Xipgnbkcsa (Bld) [Mass/Vol]8.1 g/dLLow 12.0-15.0UnCleveland Clinic South Pointe HospitalComment on above:Performed By: #### [id number] ####[facility] ([facility])[address] [place], [place] [address]Nosvkege granulocytes (Bld) [#/Vol]0.05 10*3/uLNormal0.00-0.20UnCleveland Clinic South Pointe HospitalComment on above:Performed By: #### [id number] ####[facility] ([facility])[address] [place], [place] [address]Uooccqvu granulocytes/100 WBC (Bld)0.8 %Normal0.0-1.0UnCleveland Clinic South Pointe HospitalComment on above:Performed By: #### [id number] ####[facility] ([facility])[address] [place] [address] Lymphocytes (Bld) [#/Vol]0.45 10*3/uLLow1.20-4.00UnCleveland Clinic South Pointe HospitalComment on above:Performed By: #### [id number] ####[facility] (BEAKER)[address] [place], [place] [address]Slgoigbogym/100 WBC (Bld)6.9 %Low 20.0-45.0UnCleveland Clinic South Pointe HospitalComment on above:Performed By: #### [id number] ####[facility] ([facility])[address] [place], [place] [address]TPG (RBC) [Entitic mass]27.9 mrJozssh59.0-33.0UnCleveland Clinic South Pointe Hospital Comment on above:Performed By: #### [id number] ####[facility] ([facility])[address] [place], [place] [address]BUF (RBC) [Entitic vol]91.7 iBJleujg92.0-98.0 [facility] HospitalComment on above:Performed By: #### [id number] ####[facility] ([facility])[address] [place], [place] [address]Twkhkbxoi (Bld) [#/Vol]0.46 10*3/uLNormal0.10-1.00UnCleveland Clinic South Pointe HospitalComment on above:Performed By: #### [id number] ####[facility] ([facility])[address] [place], [place] [address]Bfclhmilq/100 WBC (Bld)7.1 %Normal5.0-12.0UnCleveland Clinic South Pointe HospitalComment on above:Performed By: #### [id number] ####[facility] ([facility])[address] [place], [place] [address]Hxtdkerdijk (Bld) [#/Vol] 5.31 10*3/uLNormal1.60-7.60UnCleveland Clinic South Pointe HospitalComment on above: Performed By: #### [id number] ####[facility] ([facility])[address] [place], [place] [address]Bdmfixfurld/100 WBC (Bld)81.5 %High40.0-72.0UnCleveland Clinic South Pointe HospitalComment on above:Performed By: #### [id number] ####[facility] ([facility])[address] [place], [place] [address]XBDI (PER 100 WBCS) BY AUTOMATED COUNT0.0 %Byhaii3VkngnvjcljCleveland Clinic South Pointe HospitalComment on above: Performed By: #### [id number] ####[facility] ([facility])[address] [place], [place] [address]NVIIEPYXW (10*3/UL) IN BLOOD AUTOMATED [id number] 10*3/uLNormal 150-400UnCleveland Clinic South Pointe HospitalComment on above:Performed By: #### [id number] ####[facility] ([facility])[address] [place], [place] [address]GOJ (Bld) [#/Vol]2.90 10*6/uLLow3.80-5.00UnCleveland Clinic South Pointe HospitalComment on above:Performed By: #### [id number] ####[facility] ([facility])[address] [place], [place] [address]WSZ (Bld) [#/Vol]6.51 10*3/uLNormal4.00-10.60UnCleveland Clinic South Pointe HospitalComment on above:Performed By: #### [id number] ####[facility] ([facility])[address] [place], [place] [address]Scgrfpfut (Bld) [#/Vol] 0.02 10*3/uLNormal0.00-0.20UnCleveland Clinic South Pointe HospitalComment on above: Performed By: #### [id number] ####[facility] ([facility])[address] [place], [place] [address]Ybbcjburc/100 WBC (Bld)0.2 %Normal0.0-1.0UnCleveland Clinic South Pointe HospitalComment on above:Performed By: #### [id number] ####[facility] ([facility])[address] [place], [place] [address]Lnypsdjmqwe (Bld) [#/Vol]0.33 10*3/uL Normal0.00-0.50UnCleveland Clinic South Pointe HospitalComment on above:Performed By: #### [id number] ####[facility] ([facility])[address] [place] [address] Eosinophils/100 WBC (Bld)3.8 %Normal0.0-6.0UnCleveland Clinic South Pointe Hospital Comment on above:Performed By: #### [id number] ####[facility] ([facility])[address] [place], [place] [address]Ypfwohfdgtn distribution width (RBC) [Ratio]16.2 % High11.5-15.0UnCleveland Clinic South Pointe HospitalComment on above:Performed By: #### [id number] ####[facility] ([facility])[address] [place] [address] ERYTHROCYTE MEAN CORPUSCULAR HEMOGLOBIN CONCENTRATION (G/DL) BY FVDEGDIYI17.4 g/dLLow32.0-35.0UnCleveland Clinic South Pointe HospitalComment on above:Performed By: #### [id number] ####[facility] ([facility])[address] [place], [place] [address]Sflxwzkjnm (Bld) [Volume fraction]30.9 %Low36.0-48.0UnCleveland Clinic South Pointe HospitalComment on above:Performed By: #### [id number] ####[facility] ([facility])[address] [place], [place] [address]Onmihflunm (Bld) [Mass/Vol]9.7 g/dLLow 12.0-15.0UnCleveland Clinic South Pointe HospitalComment on above:Performed By: #### [id number] ####[facility] ([facility])[address] [place], [place] [address]Nlpomcyh granulocytes (Bld) [#/Vol]0.06 10*3/uLNormal0.00-0.20UnCleveland Clinic South Pointe HospitalComment on above:Performed By: #### [id number] ####[facility] ([facility])[address] [place], [place] [address]Ymscqijn granulocytes/100 WBC (Bld)0.7 %Normal0.0-1.0UnCleveland Clinic South Pointe HospitalComment on above:Performed By: #### [id number] ####[facility] ([facility])[address] [place] [address] Lymphocytes (Bld) [#/Vol]1.07 10*3/uLLow1.20-4.00UnCleveland Clinic South Pointe HospitalComment on above:Performed By: #### [id number] ####[facility] ([facility])[address] [place] [address]Lknztjipsje/100 WBC (Bld)12.4 %Low 20.0-45.0UnCleveland Clinic South Pointe HospitalComment on above:Performed By: #### [id number] ####[facility] ([facility])[address] [place], [place] [address]BBC (RBC) [Entitic mass]28.0 bkYmrmgd47.0-33.0UnCleveland Clinic South Pointe Hospital Comment on above:Performed By: #### [id number] ####[facility] ([facility])[address] [place], [place] [address]AXG (RBC) [Entitic vol]89.0 kEEzlnzr57.0-98.0 [facility] HospitalComment on above:Performed By: #### [id number] ####[facility] ([facility])[address] [place], [place] [address]Eohchadbj (Bld) [#/Vol]0.51 10*3/uLNormal0.10-1.00UnCleveland Clinic South Pointe HospitalComment on above:Performed By: #### [id number] ####[facility] ([facility])[address] [place], [place] [address]Tktexvyro/100 WBC (Bld)5.9 %Normal5.0-12.0UnCleveland Clinic South Pointe HospitalComment on above:Performed By: #### [id number] ####[facility] ([facility])[address] [place] [address]Jsvhysuzgug (Bld) [#/Vol] 6.63 10*3/uLNormal1.60-7.60UnCleveland Clinic South Pointe HospitalComment on above: Performed By: #### [id number] ####[facility] ([facility])[address] [place], [place] [address]Ofrpkzwqcuj/100 WBC (Bld)77.0 %High40.0-72.0UnCleveland Clinic South Pointe HospitalComment on above:Performed By: #### [id number] ####[facility] ([facility])[address] [place] [address]DWBH (PER 100 WBCS) BY AUTOMATED COUNT0.0 %Nqlswk5PpdlknwkdtCleveland Clinic South Pointe HospitalComment on above: Performed By: #### [id number] ####[facility] ([facility])[address] [place] [address]WQGGRLLUP (10*3/UL) IN BLOOD AUTOMATED [id number] 10*3/uLNormal 150-400UnCleveland Clinic South Pointe HospitalComment on above:Performed By: #### [id number] ####[facility] ([facility])[address] [place], [place] [address]TTQ (Bld) [#/Vol]3.47 10*6/uLLow3.80-5.00UnCleveland Clinic South Pointe HospitalComment on above:Performed By: #### [id number] ####[facility] ([facility])[address] [place] [address]AJG (Bld) [#/Vol]8.62 10*3/uLNormal4.00-10.60UnCleveland Clinic South Pointe HospitalComment on above:Performed By: #### [id number] ####[facility] ([facility])[address] [place], [place] [address]ZKHBJJMERTUEW METABOLIC PANELon 19-43-5181Ersjktv [Mass/Vol]3.5 g/dLNormal3.5-5.7UnCleveland Clinic South Pointe HospitalComment on above:Performed By: #### [id number] ####[facility] ([facility])[address] [place], [place] [address]CLU [Catalytic activity/Vol]96 U/L Onoyvt78-768RtxkdtmnvjCleveland Clinic South Pointe HospitalComment on above:Performed By: #### [id number] ####[facility] ([facility])[address] [place], [place] [address]CBI [Catalytic activity/Vol]5 U/LLow7-52UnCleveland Clinic South Pointe HospitalComment on above:Performed By: #### [id number] ####[facility] ([facility])[address] [place], [place] [address]Kdomg gap [Moles/Vol]14 mmol/LNormal7-20UnCleveland Clinic South Pointe HospitalComment on above:Performed By: #### [id number] ####[facility] ([facility])[address] [place] [address]HVM [Catalytic activity/Vol]11 U/LLow 13-39UnCleveland Clinic South Pointe HospitalComment on above:Performed By: #### [id number] ####[facility] ([facility])[address] [place], [place] [address]Bddfvupdv [Mass/Vol]0.8 mg/dLNormal0.3-1.0UnCleveland Clinic South Pointe HospitalComment on above:Performed By: #### [id number] ####[facility] ([facility])[address] [place], [place] [address]Nfzjkzg [Mass/Vol]9.2 mg/dLNormal8.6-10.3UnCleveland Clinic South Pointe HospitalComment on above:Performed By: #### [id number] ####[facility] ([facility])[address] [place], [place] [address]Wsnvpjrf [Moles/Vol]95 mmol/HSys14-965 [facility] HospitalComment on above:Performed By: #### [id number] ####[facility] ([facility])[address] [place], [place] [address]EO7 [Moles/Vol] 31 mmol/BCihzsk88-25ZiauhnxapjCleveland Clinic South Pointe HospitalComment on above: Performed By: #### [id number] ####[facility] ([facility])[address] [place], [place] [address]Ahwlkeadjs [Mass/Vol]1.54 mg/dLHigh0.60-1.20UnCleveland Clinic South Pointe HospitalComment on above:Performed By: #### [id number] ####[facility] ([facility])[address] [place], [place] [address]CSZBBYUXCJ FILTRATION RATE ML/MIN/1.73 SQ M.WQPQZGJFM81.9 mL/min/1.73m*2Low>60.0UnCleveland Clinic South Pointe Hospital Comment on above:Result Comment: [facility]???s estimated glomerular filtration rate (eGFR) will [...] anyone group of individuals.Performed By: #### [id number] ####[facility] ([facility])[address] [place], [place] [address]Wezpxbk [Mass/Vol]89 mg/jRTtfrtw02-133UxnlvcyochCleveland Clinic South Pointe HospitalComment on above:Performed By: #### [id number] ####[facility] ([facility])[address] [place] [address]Fclcrhicy [Moles/Vol]4.1 mmol/LNormal3.5-5.1UnCleveland Clinic South Pointe HospitalComment on above:Performed By: #### [id number] ####[facility] ([facility])[address] [place], [place] [address]Kgzigau [Mass/Vol]6.2 g/dLNormal 6.0-8.3UnCleveland Clinic South Pointe HospitalComment on above:Performed By: #### [id number] ####[facility] ([facility])[address] [place], [place] [address]Vrnkso [Moles/Vol]136 mmol/VIlfgld057-402YeyjzyowrlCleveland Clinic South Pointe HospitalComment on above:Performed By: #### [id number] ####[facility] ([facility])[address] [place], [place] [address]Vfze nitrogen [Mass/Vol]20 mg/dLNormal7-25UnCleveland Clinic South Pointe HospitalComment on above:Performed By: #### [id number] ####[facility] ([facility])[address] [place] [address]FDDH NITROGEN/CREATININE (MASS RATIO) IN SER/PLAS13.0NormalUniZanesville City HospitalComment on above: Performed By: #### [id number] ####[facility] ([facility])[address] [place] [address]JSRIDJHzj 01-39-2506XHEBWECPgjzmcWgebsyoyiy of [place] Medical CenterCTA ABDOMEN PELVIS W IV CONTRASTon 24-94-2225KGC ABDOMEN PELVIS W IV CONTRASTNormal [facility] Community HospitalLACTIC ACID WITH 4 HOUR REFLEXon 02-03-2024 LACTATE (MMOL/L) IN SER/PLAS0.7 mmol/LNormal0.5-2.2UnCleveland Clinic South Pointe HospitalComment on above:Performed By: #### [id number] ####[facility] ([facility])[address] [place] [address]GNRKVDV (MMOL/L) IN SER/PLAS1.4 mmol/L Normal0.5-2.2UnCleveland Clinic South Pointe HospitalComment on above:Performed By: #### [id number] ####[facility] ([facility])[address] [place] [address] MAGNESIUMon 94-95-0205Bxsempwlq [Mass/Vol]2.3 mg/dLNormal1.9-2.7UnCleveland Clinic South Pointe HospitalComment on above:Performed By: #### [id number] ####[facility] ([facility])[address] [place] [address]Zpddjnmlu [Mass/Vol]2.3 mg/dLNormal1.9-2.7UnCleveland Clinic South Pointe HospitalComment on above:Performed By: #### [id number] ####[facility] ([facility])[address] [place] [address] NURSNOTEon 89-49-0542IFCZCUDZCvhzbkSixsozbqpg of [place] Medical CenterPHOSPHORUS on 41-58-7230Xcefjbyrn [Mass/Vol]4.8 mg/dLNormal2.5-5.0UnCleveland Clinic South Pointe HospitalComment on above:Performed By: #### [id number] ####[facility] ([facility])[address] [place], [place] [address]OLJG GLUCOSE METER UNSOLICITED RESULTS on 12-91-9434Ioychto [Mass/Vol]105 mg/cPMpjyou38-392PismsvvqkhCleveland Clinic South Pointe HospitalComment on above:Order Comment: Waived Testing in the ED is performed under the ED CLIA certificate #[id number].Result Comment: oyvftrt4Byxholqfn By: #### [id number] ####[facility] ([facility])[address] [place] [address] Glucose [Mass/Vol]110 mg/oVWkbr02-897FhfbznpjduCleveland Clinic South Pointe HospitalComment on above:Order Comment: Waived Testing in the ED is performed under the ED CLIA certificate #[id number].Result Comment: kzcwbwt1Vlebmuvct By: #### [id number] ####[facility] ([facility])[address] [place], [place] [address]JLFTJRVBH, WHOLE BLOODon 02-84-9965Fnfwuhqoh [Moles/Vol]4.2 mmol/LNormal3.5-5.1UnCleveland Clinic South Pointe HospitalComment on above:Performed By: #### POTASSIUM, WHOLE BLOOD ####[facility] [id number] [place] [address] USASODIUM, WHOLE BLOODon 66-51-9211UWHDGA, WHOLE IDFSR950Ehx250-571JpuzfrsetpCleveland Clinic South Pointe HospitalComment on above:Performed By: #### SODIUM, WHOLE BLOOD ####[facility] [id number] [address] USATROPONIN Ion 02-03-2024 Troponin I.cardiac [Mass/Vol]0.05 ng/mLHigh0.00-0.04UnCleveland Clinic South Pointe HospitalComment on above:Performed By: #### [id number] ####[facility] ([facility])[address] [place], [place] [address]Cedqqnzg I.cardiac [Mass/Vol]0.06 ng/mLHigh0.00-0.04UnCleveland Clinic South Pointe HospitalComment on above:Performed By: #### [id number] ####[facility] ([facility])[address] [place] [address] Troponin I.cardiac [Mass/Vol]0.05 ng/mLHigh0.00-0.04UnCleveland Clinic South Pointe HospitalComment on above:Performed By: #### [id number] ####[facility] ([facility])[address] [place], [place] [address]MFUC AND SCREENon 57-28-5990KX SCREEN NegativeNormalUniZanesville City HospitalComment on above:Performed By: #### [id number] ####[facility],ABO group Nom (Bld)ONormalUnCleveland Clinic South Pointe HospitalComment on above:Performed By: #### [id number] ####[facility],RH TYPE IN BLOODPositiveNormalUniZanesville City HospitalComment on above: Performed By: #### [id number] ####[facility],30on 99-94-578112LmmamtApjybcupgc of [place] Medical Fmgdml44NyxtvgMqbptocnusZanesville City HospitalARTERIAL BLOOD GAS WITH IONIZED CALCIUMon 86-79-2659Jhoi excess Calc (Bld) [Moles/Vol]3.2 mmol/LHigh-2.0-3.0UnCleveland Clinic South Pointe HospitalComment on above:Order Comment: Bipap 12/6Performed By: #### [id number] ####[facility] [id number] [place] [address] USACALCIUM IONIZED (MMOL/L) IN BLOOD1.19 mmol/L Normal1.15-1.33UnCleveland Clinic South Pointe HospitalComment on above:Order Comment: Bipap 12/6Performed By: #### [id number] ####[facility] [id number] [place] [address] USACO2 (Bld) [Partial pressure]45 mm[Hg]Normal 35-48UnCleveland Clinic South Pointe HospitalComment on above:Order Comment: Bipap 12/6Performed By: #### [id number] ####[facility] [id number] [place] [address] PIICTB034 %NormalUnCleveland Clinic South Pointe HospitalComment on above:Order Comment: Bipap 12/6Performed By: #### [id number] ####[facility] [id number] [place] [address] USAHCO3 (Bld) [Moles/Vol] 28.5 mmol/LHigh21.0-28.0UnCleveland Clinic South Pointe HospitalComment on above: Order Comment: Bipap 12/6Performed By: #### [id number] ####[facility] [id number] [place] [address] USAOxygen (Bld) [Partial pressure]187 mm[Hg]Kfyk48-608DzvasnwaleCleveland Clinic South Pointe HospitalComment on above:Order Comment: Bipap 12/6Performed By: #### [id number] ####[facility] [id number] [place] [address] USAOXYGEN SATURATION (%) IN ARTERIAL ENHXQ064.0 % High94.0-98.0UnCleveland Clinic South Pointe HospitalComment on above:Order Comment: Bipap 12/6Performed By: #### [id number] ####[facility] [id number] [place] [address] USAPEEP6 yqS9PLkgwkhPlrzesgrtvMartin Memorial Hospital Comment on above:Order Comment: Bipap 12/6Performed By: #### [id number] ####[facility] [id number] [place] [address] USApH (Bld)7.41 [pH]Normal 7.35-7.45UnCleveland Clinic South Pointe HospitalComment on above:Order Comment: Bipap 12/6Performed By: #### [id number] ####[facility] [id number] [place] [address] USARESPIRATORY RLFR28ApnulxMydwwkrfpfZanesville City HospitalComment on above:Order Comment: Bipap 12/6Performed By: #### [id number] ####[facility] [id number] [place] [address] USASOURCE OF OXYGENBi-PAPNormalUniversity Chillicothe HospitalComment on above:Order Comment: Bipap 01/29Performed By: #### [id number] ####[facility] [id number] [place] [address] USAB-TYPE NATRIURETIC PEPTIDEon 02-02-2024 Natriuretic peptide B (Bld) [Mass/Vol]1109 pg/mLHigh0-100UnCleveland Clinic South Pointe HospitalComment on above:Performed By: #### [id number] ####[facility] ([facility])[address] [place], [place] [address]YDZ WITH AUTO DIFFERENTIALon 11-98-8807Qaznbmphc (Bld) [#/Vol]0.03 10*3/uLNormal0.00-0.20UnCleveland Clinic South Pointe HospitalComment on above:Performed By: #### [id number] ####[facility] (BE[facility]ER)[address] [place], [place] [address]Kwlkjuasu/100 WBC (Bld)0.4 %Normal 0.0-1.0UnCleveland Clinic South Pointe HospitalComment on above:Performed By: #### [id number] ####[facility] ([facility]ER)[address] [place] [address] Eosinophils (Bld) [#/Vol]0.24 10*3/uLNormal0.00-0.50UnCleveland Clinic South Pointe HospitalComment on above:Performed By: #### [id number] ####[facility] ([facility])[address] [place], [place] [address]Okxnmtjlwvp/100 WBC (Bld)3.0 %Normal 0.0-6.0UnCleveland Clinic South Pointe HospitalComment on above:Performed By: #### [id number] ####[facility] (BE[facility])[address] [place] [address] Erythrocyte distribution width (RBC) [Ratio]16.5 %High11.5-15.0UnCleveland Clinic South Pointe HospitalComment on above:Performed By: #### [id number] ####[facility] ([facility])[address] [place], [place] [address]JIBTPXINHAY MEAN CORPUSCULAR HEMOGLOBIN CONCENTRATION (G/DL) BY HLMBHCHQF01.4 g/dLLow32.0-35.0 [facility] HospitalComment on above:Performed By: #### [id number] ####[facility] ([facility])[address] [place], [place] [address]Yvprxpvgap (Bld) [Volume fraction]29.3 %Low36.0-48.0UnCleveland Clinic South Pointe HospitalComment on above:Performed By: #### [id number] ####[facility] ([facility])[address] [place], [place] [address]Zwnapijzlf (Bld) [Mass/Vol]8.9 g/dLLow12.0-15.0UnCleveland Clinic South Pointe HospitalComment on above:Performed By: #### [id number] ####[facility] ([facility])[address] [place], [place] [address]Dihuuffp granulocytes (Bld) [#/Vol]0.07 10*3/uLNormal0.00-0.20UnC[facility] Clinic [facility]inte Hospital Comment on above:Performed By: #### [id number] ####[facility] ([facility])[address] [place], [place] [address]Zngjkonc granulocytes/100 WBC (Bld)0.9 %Normal 0.0-1.0UnCleveland Clinic South Pointe HospitalComment on above:Performed By: #### [id number] ####[facility] ([facility]ER)[address] [place] [address] Lymphocytes (Bld) [#/Vol]1.34 10*3/uLNormal1.20-4.00UnCleveland Clinic South Pointe HospitalComment on above:Performed By: #### [id number] ####[facility] ([facility]ER)[address] [place], [place] [address]Czqkvodmblx/100 WBC (Bld)16.5 %Low 20.0-45.0UnCleveland Clinic South Pointe HospitalComment on above:Performed By: #### [id number] ####[facility] ([facility])[address] [place] [address]RAD (RBC) [Entitic mass]28.2 ipVqwsyx85.0-33.0UnCleveland Clinic South Pointe Hospital Comment on above:Performed By: #### [id number] ####[facility] ([facility])[address] [place], [place] [address]TBC (RBC) [Entitic vol]92.7 bBIswjdr81.0-98.0 [facility] HospitalComment on above:Performed By: #### [id number] ####[facility] ([facility])[address] [place], [place] [address]Illslrcje (Bld) [#/Vol]0.52 10*3/uLNormal0.10-1.00UnCleveland Clinic South Pointe HospitalComment on above:Performed By: #### [id number] ####[facility] ([facility])[address] [place] [address]Rbtjiziux/100 WBC (Bld)6.4 %Normal5.0-12.0UnCleveland Clinic South Pointe HospitalComment on above:Performed By: #### [id number] ####[facility] (BE[facility]ER)[address] [place], [place] [address]Ugolpghnods (Bld) [#/Vol] 5.91 10*3/uLNormal1.60-7.60UnCleveland Clinic South Pointe HospitalComment on above: Performed By: #### [id number] ####[facility] ([facility])[address] [place] [address]Tadcoyhlxbx/100 WBC (Bld)72.8 %High40.0-72.0UnCleveland Clinic South Pointe HospitalComment on above:Performed By: #### [id number] ####[facility] ([facility])[address] [place] [address]AZOJ (PER 100 WBCS) BY AUTOMATED COUNT0.0 %Qvklse0CqazhomgyjCleveland Clinic South Pointe HospitalComment on above: Performed By: #### [id number] ####[facility] ([facility])[address] [place], [place] [address]ALCHULEAE (10*3/UL) IN BLOOD AUTOMATED [id number] 10*3/uLNormal 150-400UnCleveland Clinic South Pointe HospitalComment on above:Performed By: #### [id number] ####[facility] ([facility])[address] [place], [place] [address]OOK (Bld) [#/Vol]3.16 10*6/uLLow3.80-5.00UnCleveland Clinic South Pointe HospitalComment on above:Performed By: #### [id number] ####[facility] ([facility])[address] [place], [place] [address]CMI (Bld) [#/Vol]8.11 10*3/uLNormal4.00-10.60UnCleveland Clinic South Pointe HospitalComment on above:Performed By: #### [id number] ####[facility] ([facility])[address] [place], [place] [address]DNEWZCRRLXINT METABOLIC PANELon 31-09-0646Yhkegde [Mass/Vol]3.4 g/dLLow3.5-5.7UnCleveland Clinic South Pointe HospitalComment on above:Performed By: #### [id number] ####[facility] ([facility])[address] [place], [place] [address]ART [Catalytic activity/Vol]90 U/L Ufqkux56-227KeutqmjeckCleveland Clinic South Pointe HospitalComment on above:Performed By: #### [id number] ####[facility] ([facility])[address] [place], [place] [address]NCQ [Catalytic activity/Vol]5 U/LLow7-52UnCleveland Clinic South Pointe HospitalComment on above:Performed By: #### [id number] ####[facility] ([facility])[address] [place], [place] [address]Afavs gap [Moles/Vol]9 mmol/LNormal7-20UnCleveland Clinic South Pointe HospitalComment on above:Performed By: #### [id number] ####[facility] ([facility])[address] [place], [place] [address]ZIH [Catalytic activity/Vol]11 U/LLow 13-39UnCleveland Clinic South Pointe HospitalComment on above:Performed By: #### [id number] ####[facility] ([facility])[address] [place], [place] [address]Auuzfgvmb [Mass/Vol]0.5 mg/dLNormal0.3-1.0UnCleveland Clinic South Pointe HospitalComment on above:Performed By: #### [id number] ####[facility] ([facility])[address] [place], [place] [address]Lkouhdf [Mass/Vol]8.3 mg/dLLow8.6-10.3UnCleveland Clinic South Pointe HospitalComment on above:Performed By: #### [id number] ####[facility] ([facility])[address] [place], [place] [address]Uupmuozg [Moles/Vol]101 mmol/LNormal 98-107UnCleveland Clinic South Pointe HospitalComment on above:Performed By: #### [id number] ####[facility] ([facility])[address] [place], [place] [address]LZ1 [Moles/Vol]26 mmol/QPekkap89-37YtksvdoqsxCleveland Clinic South Pointe HospitalComment on above:Performed By: #### [id number] ####[facility] ([facility])[address] [place], [place] [address]Vlmdcfrsya [Mass/Vol]1.28 mg/dLHigh0.60-1.20UnCleveland Clinic South Pointe HospitalComment on above:Performed By: #### [id number] ####[facility] ([facility])[address] [place], [place] [address]LMTGREZGMC FILTRATION RATE ML/MIN/1.73 SQ M.VBNJITEBC51.4 mL/min/1.73m*2Low>60.0UnCleveland Clinic South Pointe HospitalComment on above:Result Comment: [facility]???s estimated glomerular filtration rate (eGFR) will [...] anyone group of individuals.Performed By: #### [id number] ####[facility] ([facility])[address] [place], [place] [address]Jenfcdb [Mass/Vol]95 mg/nQUzhinh36-187HespdxxbmbCleveland Clinic South Pointe HospitalComment on above:Performed By: #### [id number] ####[facility] ([facility])[address] [place], [place] [address]Thfitcjsv [Moles/Vol]4.4 mmol/LNormal3.5-5.1UnCleveland Clinic South Pointe HospitalComment on above:Performed By: #### [id number] ####[facility] ([facility])[address] [place], [place] [address]Hefznqu [Mass/Vol]5.7 g/dLLow 6.0-8.3UnCleveland Clinic South Pointe HospitalComment on above:Performed By: #### [id number] ####[facility] ([facility])[address] [place], [place] [address]Cjzrdf [Moles/Vol]132 mmol/JKbs063-933UiyqcnemyjCleveland Clinic South Pointe HospitalComment on above:Performed By: #### [id number] ####[facility] ([facility])[address] [place], [place] [address]Basy nitrogen [Mass/Vol]21 mg/dLNormal7-25UnCleveland Clinic South Pointe HospitalComment on above:Performed By: #### [id number] ####[facility] ([facility])[address] [place], [place] [address]YCLC NITROGEN/CREATININE (MASS RATIO) IN SER/PLAS16.4NormalUniversCleveland Clinic Marymount HospitalComment on above: Performed By: #### [id number] ####[facility] ([facility])[address], [place] [address]RVEMOXWeb [phone] of [facility] CONSULTNormalUniversity Chillicothe HospitalCONSULTNormalUniversity Chillicothe HospitalHPon [phone] [facility] HPNormalUniversCleveland Clinic Marymount HospitalLIPID PANELon [phone]/HDL3.3 mg/dLNormalUniZanesville City HospitalComment on above:Performed By: #### [id number] ####[facility] (BEAK[facility])[address] [place] [address] Cholesterol [Mass/Vol]148 mg/oWMxhgtc097-720QpromramulCleveland Clinic South Pointe Hospital Comment on above:Performed By: #### [id number] ####[facility] ([facility])[address] [place], [place] [address]Qrufjogvy [Mass/Vol]100 mg/bVBtnlav42-335EohevuesawCleveland Clinic South Pointe HospitalComment on above:Result Comment: TRIGLYCERIDE REFERENCE RANGE:20 YEARS AND OLDER CARDIOVASCULAR RISKLESS THAN 150 mg/dL LOW FTRX172 TO 199 mg/dL BORDERLINE ZOQG542 mg/dL AND GREATER HIGH RISKPerformed By: #### [id number] ####[facility] ([facility])[address] [place], [place] [address]Neiepwlga [Mass/Vol]83 mg/dLNormal0-160UnCleveland Clinic South Pointe HospitalComment on above:Performed By: #### [id number] ####[facility] ([facility])[address] [place], [place] [address]Ejobcbonh [Mass/Vol]45 mg/mOYrtwjr94-59XlkgjyfertCleveland Clinic South Pointe HospitalComment on above:Performed By: #### [id number] ####[facility] ([facility])[address] [place], [place] [address]RKN HDL CHOL. (LDL+VLDL)103Normal [facility] Community HospitalComment on above:Performed By: #### [id number] ####[facility] ([facility])[address] [place] [address]NVISF VLDL-C20 mg/dLNormal0-40UnCleveland Clinic South Pointe HospitalComment on above:Performed By: #### [id number] ####[facility] ([facility])[address] [place] [address] MAGNESIUMon 70-45-5524Lsqfljobw [Mass/Vol]2.6 mg/dLNormal1.9-2.7UnCleveland Clinic South Pointe HospitalComment on above:Performed By: #### [id number] ####[facility] ([facility])[address] [place] [address]PURDNBSV COUNTon 15-26-3286YNSEZLWTD (10*3/UL) IN BLOOD AUTOMATED [id number] 10*3/tTSwwyke769-492 [facility] HospitalComment on above:Performed By: #### [id number] ####[facility] ([facility])[address] [place] [address]KYBH GLUCOSE METER UNSOLICITED RESULTSon 81-15-0010Tpkghhy [Mass/Vol]117 mg/yYHsiv43-975 [facility] HospitalComment on above:Order Comment: Waived Testing in the ED is performed under the ED CLIA certificate #[id number].Result Comment: shamarPerformed By: #### [id number] ####[facility] ([facility])[address] [place] [address]Ifsjiul [Mass/Vol]97 mg/zMUhkwlz41-914NoeuumubrjCleveland Clinic South Pointe HospitalComment on above:Order Comment: Waived Testing in the ED is performed under the ED CLIA certificate #[id number].Result Comment: shamar Performed By: #### [id number] ####[facility] ([facility])[address] [place] [address]Avmoqqo [Mass/Vol]91 mg/kUYjwypu72-770BlevtbxuaaCleveland Clinic South Pointe HospitalComment on above:Order Comment: Waived Testing in the ED is performed under the ED CLIA certificate #[id number].Result Comment: [email or web address] Performed By: #### [id number] ####[facility] ([facility])[address] [place] [address]Igrhhvy [Mass/Vol]93 mg/jMEqroqg34-861FbaktxueknCleveland Clinic South Pointe HospitalComment on above:Order Comment: Waived Testing in the ED is performed under the ED CLIA certificate #[id number].Result Comment: [email or web address] Performed By: #### [id number] ####[facility] ([facility])[address] [place] [address]G1, FREEon 49-68-5226VUCVDWCRC (T4) FREE (NG/DL) IN SER/PLAS 1.61 ng/dLNormal0.71-1.85UnCleveland Clinic South Pointe HospitalComment on above: Performed By: #### [id number] ####[facility] ([facility])[address] [facility] [place] [address]AXEUNNXI Ion 21-76-9742Tsjsooqo I.cardiac [Mass/Vol]0.06 ng/mLHigh0.00-0.04UnCleveland Clinic South Pointe HospitalComment on above:Performed By: #### [id number] ####[facility] ([facility])[address] [facility] [address] Troponin I.cardiac [Mass/Vol]0.08 ng/mLHigh0.00-0.04UnCleveland Clinic South Pointe HospitalComment on above:Performed By: #### [id number] ####[facility] ([facility])[address] [facility] [place] [address]Cvwrcrfn I.cardiac [Mass/Vol]0.07 ng/mLHigh0.00-0.04UnCleveland Clinic South Pointe HospitalComment on above:Performed By: #### [id number] ####[facility] ([facility])[address] [place] [address] TSHon 96-34-4015JOJJSPKDBOO (MIU/L) IN SER/PLAS BY DETECTION LIMIT <= 0.05 MIU/L 5.42 mIU/LNormal0.34-5.60UnCleveland Clinic South Pointe HospitalComment on above: Performed By: #### [id number] ####[facility] ([facility])[address] [place] [address]53el 16-82-892086Heo patient is Moderately Stable - Low risk of patient condition declining or worsening The patient's goals for the shift include sleep/rest The clinical goals for the shift include VSS/restNormalUniversCleveland Clinic Marymount Hospital30NormalUniversity Chillicothe HospitalBASIC METABOLIC PANELon 35-26-0986Jveqm gap [Moles/Vol]8 mmol/LNormal7-20UnCleveland Clinic South Pointe HospitalComment on above:Performed By: #### [id number] ####[facility] ([facility])[address] [place], [place] [address]Pideehi [Mass/Vol]8.0 mg/dLLow8.6-10.3 [facility] HospitalComment on above:Performed By: #### [id number] ####[facility] ([facility])[address] [place], [place] [address]Gntaakbk [Moles/Vol]106 mmol/QRtcmtq74-014PnufmnppizCleveland Clinic South Pointe HospitalComment on above:Performed By: #### [id number] ####[facility] ([facility])[address] [place], [place] [address]EE9 [Moles/Vol]28 mmol/FXgrwmy18-63VrnxmwgvvzCleveland Clinic South Pointe HospitalComment on above:Performed By: #### [id number] ####[facility] ([facility])[address] [place], [place] [address]Scpdoxunky [Mass/Vol]1.39 mg/dLHigh 0.60-1.20UnCleveland Clinic South Pointe HospitalComment on above:Performed By: #### [id number] ####[facility] ([facility])[address] [place], [place] [address]WNVXYSDSXS FILTRATION RATE ML/MIN/1.73 SQ M.ETMFSQITR34.4 mL/min/1.73m*2Low>60.0UnCleveland Clinic South Pointe HospitalComment on above:Result Comment: [facility]???s estimated glomerular filtration rate (eGFR) will [...] group of individuals. Performed By: #### [id number] ####[facility] ([facility])[address] [place] [address]Rtwaify [Mass/Vol]91 mg/iDXrwhmw13-833MfcrxfjbluCleveland Clinic South Pointe HospitalComment on above:Performed By: #### [id number] ####[facility] ([facility])[address] [place] [address]Ydhhpfrce [Moles/Vol]4.3 mmol/LNormal 3.5-5.1UnCleveland Clinic South Pointe HospitalComment on above:Performed By: #### [id number] ####[facility] ([facility])[address] [place] [address]Ufzpza [Moles/Vol]138 mmol/ZGasmgh470-442HpzgcnsoizCleveland Clinic South Pointe HospitalComment on above:Performed By: #### [id number] ####[facility] ([facility])[address] [place], [place] [address]Zaji nitrogen [Mass/Vol]29 mg/dLHigh7-25UnCleveland Clinic South Pointe HospitalComment on above:Performed By: #### [id number] ####[facility] ([facility])[address] [place] [address]EYSY NITROGEN/CREATININE (MASS RATIO) IN SER/PLAS20.9NormalUniversCleveland Clinic Marymount HospitalComment on above: Performed By: #### [id number] ####[facility] ([facility])[address] [place] [address]YBC WITH AUTO DIFFERENTIALon 85-24-1134Erijjfrsq (Bld) [#/Vol]0.03 10*3/uLNormal0.00-0.20UnCleveland Clinic South Pointe HospitalComment on above: Performed By: #### [id number] ####[facility] ([facility])[address] [place], [place] [address]Kpdbihcow/100 WBC (Bld)0.3 %Normal0.0-1.0UnCleveland Clinic South Pointe HospitalComment on above:Performed By: #### [id number] ####[facility] ([facility])[address] [place], [place] [address]Nwvolqplotr (Bld) [#/Vol]0.19 10*3/uL Normal0.00-0.50UnCleveland Clinic South Pointe HospitalComment on above:Performed By: #### [id number] ####[facility] ([facility])[address] [place] [address] Eosinophils/100 WBC (Bld)1.8 %Normal0.0-6.0UnCleveland Clinic South Pointe Hospital Comment on above:Performed By: #### [id number] ####[facility] ([facility])[address] [place], [place] [address]Uxejskfmkal distribution width (RBC) [Ratio]17.0 % High11.5-15.0UnCleveland Clinic South Pointe HospitalComment on above:Performed By: #### [id number] ####[facility] ([facility])[address] [place] [address] ERYTHROCYTE MEAN CORPUSCULAR HEMOGLOBIN CONCENTRATION (G/DL) BY EYRRMCIVN86.5 g/dLLow32.0-35.0UnCleveland Clinic South Pointe HospitalComment on above:Performed By: #### [id number] ####[facility] ([facility])[address] [place], [place] [address]Mwhdfbduwn (Bld) [Volume fraction]27.2 %Low36.0-48.0UnCleveland Clinic South Pointe HospitalComment on above:Performed By: #### [id number] ####[facility] ([facility])[address] [place], [place] [address]Kksspweslw (Bld) [Mass/Vol]8.3 g/dLLow 12.0-15.0UnCleveland Clinic South Pointe HospitalComment on above:Performed By: #### [id number] ####[facility] ([facility])[address] [place], [place] [address]Gtlkbyky granulocytes (Bld) [#/Vol]0.04 10*3/uLNormal0.00-0.20UnCleveland Clinic South Pointe HospitalComment on above:Performed By: #### [id number] ####[facility] ([facility])[address] [place] [address]Fszlfzav granulocytes/100 WBC (Bld)0.4 %Normal0.0-1.0UnCleveland Clinic South Pointe HospitalComment on above:Performed By: #### [id number] ####[facility] ([facility])[address] [place] [address] Lymphocytes (Bld) [#/Vol]1.44 10*3/uLNormal1.20-4.00UnCleveland Clinic South Pointe HospitalComment on above:Performed By: #### [id number] ####[facility] ([facility])[address] [facility] [place], [place] [address]Dbpzjduyamh/100 WBC (Bld)13.6 %Low 20.0-45.0UnCleveland Clinic South Pointe HospitalComment on above:Performed By: #### [id number] ####[facility] ([facility])[address] [place] [address]XAW (RBC) [Entitic mass]28.3 klUxkklw72.0-33.0UnCleveland Clinic South Pointe Hospital Comment on above:Performed By: #### [id number] ####[facility] ([facility])[address] [facility] [place], [place] [address]WFA (RBC) [Entitic vol]92.8 hWHxmgms11.0-98.0 [facility] HospitalComment on above:Performed By: #### [id number] ####[facility] ([facility])[address] [place] [address]Tgvjhdydg (Bld) [#/Vol]0.73 10*3/uLNormal0.10-1.00UnCleveland Clinic South Pointe HospitalComment on above:Performed By: #### [id number] ####[facility] ([facility])[address] [place] [address]Mxtqjtqzh/100 WBC (Bld)6.9 %Normal5.0-12.0UnCleveland Clinic South Pointe HospitalComment on above:Performed By: #### [id number] ####[facility] ([facility])[address] [place] [address]Graelkcbncw (Bld) [#/Vol] 8.12 10*3/uLHigh1.60-7.60UnCleveland Clinic South Pointe HospitalComment on above: Performed By: #### [id number] ####[facility] ([facility])[address] [place] [address]Uvdnkkqkbod/100 WBC (Bld)77.0 %High40.0-72.0UnCleveland Clinic South Pointe HospitalComment on above:Performed By: #### [id number] ####[facility] ([facility])[address] [place] [address]XSIU (PER 100 WBCS) BY AUTOMATED COUNT0.0 %Vmipjt8LhywlshmpvCleveland Clinic South Pointe HospitalComment on above: Performed By: #### [id number] ####[facility] ([facility])[address] [place] [address]JFKYBUSLC (10*3/UL) IN BLOOD AUTOMATED [id number] 10*3/uLLow 150-400UnCleveland Clinic South Pointe HospitalComment on above:Performed By: #### [id number] ####[facility] ([facility])[address] [place], [place] [address]NYA (Bld) [#/Vol]2.93 10*6/uLLow3.80-5.00UnCleveland Clinic South Pointe HospitalComment on above:Performed By: #### [id number] ####[facility] ([facility])[address] [place], [place] [address]SEA (Bld) [#/Vol]10.55 10*3/uLNormal4.00-10.60UnCleveland Clinic South Pointe HospitalComment on above:Performed By: #### [id number] ####[facility] ([facility])[address] [place] [address]EDwt 43-13-4099XWKcdxoo [facility] HospitalMAGNESIUMon 91-97-4399Sfvdvqfgj [Mass/Vol]2.2 mg/dLNormal1.9-2.7UnCleveland Clinic South Pointe HospitalComment on above:Performed By: #### [id number] ####[facility] ([facility])[address] [place], [place] [address]OLNBRFOOad 47-56-6975VPFSRCLZCnkwqsZlhpdumowh of [facility] NURSNOTENormalUniversity Chillicothe HospitalOrders Onlyon 40-66-6254Sdcnbt [id number] Shayy Maynard 1945 F Date Provider Department Center 01/31/2024 [facility] [place] Count No family history on fileNormalUniZanesville City HospitalPHOSPHORUSon 75-93-3755Wsugeazyd [Mass/Vol]3.3 mg/dLNormal2.5-5.0UnCleveland Clinic South Pointe HospitalComment on above:Performed By: #### [id number] ####[facility] ([facility])[address] [place], [place] [address]BJQP GLUCOSE METER UNSOLICITED RESULTS on 04-75-5259Ldltiqa [Mass/Vol]210 mg/cAVyut25-001XifmkvvlrwCleveland Clinic South Pointe HospitalComment on above:Order Comment: Waived Testing in the ED is performed under the ED CLIA certificate #[id number].Result Comment: [email or web address] By: #### [id number] ####[facility] ([facility])[address] [place] [address] Glucose [Mass/Vol]118 mg/gYBkri93-107HpxufwmnsfCleveland Clinic South Pointe HospitalComment on above:Order Comment: Waived Testing in the ED is performed under the ED CLIA certificate #[id number].Result Comment: [email or web address] By: #### [id number] ####[facility] ([facility])[address] [place] [address]EMIUJ METABOLIC PANELon 54-27-4501Jgugb gap [Moles/Vol]7 mmol/LNormal7-20UnCleveland Clinic South Pointe HospitalComment on above:Performed By: #### [id number] ####[facility] ([facility])[address] [place] [address]Toylpdf [Mass/Vol]8.0 mg/dLLow8.6-10.3 [facility] HospitalComment on above:Performed By: #### [id number] ####[facility] ([facility])[address] [place], [place] [address]Pruekotb [Moles/Vol]107 mmol/UEjtutt85-865UfkbocxwatCleveland Clinic South Pointe HospitalComment on above:Performed By: #### [id number] ####[facility] ([facility])[address] [place], [place] [address]PL9 [Moles/Vol]27 mmol/ZYwujul81-70WhrpdrnbrlCleveland Clinic South Pointe HospitalComment on above:Performed By: #### [id number] ####[facility] ([facility])[address] [place], [place] [address]Eneuiwlvxu [Mass/Vol]1.54 mg/dLHigh 0.60-1.20UnCleveland Clinic South Pointe HospitalComment on above:Performed By: #### [id number] ####[facility] ([facility])[address] [place], [place] [address]CUIBNCHHGA FILTRATION RATE ML/MIN/1.73 SQ M.BZRZUDLFC22.9 mL/min/1.73m*2Low>60.0UnCleveland Clinic South Pointe HospitalComment on above:Result Comment: [facility]???s estimated glomerular filtration rate (eGFR) will [...] group of individuals. Performed By: #### [id number] ####[facility] ([facility])[address] [place] [address]Ntljsct [Mass/Vol]124 mg/bNSjjx75-321UrwbcxkepuCleveland Clinic South Pointe HospitalComment on above:Performed By: #### [id number] ####[facility] ([facility])[address] [place], [place] [address]Pjauzcakh [Moles/Vol]4.4 mmol/LNormal 3.5-5.1UnCleveland Clinic South Pointe HospitalComment on above:Performed By: #### [id number] ####[facility] ([facility])[address] [place], [place] [address]Xtzrfo [Moles/Vol]137 mmol/NSqvijs900-506JqthfjgajkCleveland Clinic South Pointe HospitalComment on above:Performed By: #### [id number] ####[facility] ([facility])[address] [place], [place] [address]Kfpy nitrogen [Mass/Vol]25 mg/dLNormal7-25UnCleveland Clinic South Pointe HospitalComment on above:Performed By: #### [id number] ####[facility] ([facility])[address] [place] [place], [place] [address]ZCJG NITROGEN/CREATININE (MASS RATIO) IN SER/PLAS16.2NormalUnCleveland Clinic South Pointe HospitalComment on above: Performed By: #### [id number] ####[facility] ([facility])[address] [place], [place] [address]JOX WITH AUTO DIFFERENTIALon 36-04-2400Lavgvockt (Bld) [#/Vol]0.02 10*3/uLNormal0.00-0.20UnCleveland Clinic South Pointe HospitalComment on above: Performed By: #### [id number] ####[facility] ([facility])[address] [place], [place] [address]Jybfgfkxr/100 WBC (Bld)0.2 %Normal0.0-1.0UnCleveland Clinic South Pointe HospitalComment on above:Performed By: #### [id number] ####[facility] ([facility])[address] [place], [place] [address]Uibgzmadhcu (Bld) [#/Vol]0.06 10*3/uL Normal0.00-0.50UnCleveland Clinic South Pointe HospitalComment on above:Performed By: #### [id number] ####[facility] ([facility])[address] [place] [address] Eosinophils/100 WBC (Bld)0.5 %Normal0.0-6.0UnCleveland Clinic South Pointe Hospital Comment on above:Performed By: #### [id number] ####[facility] ([facility])[address] [place], [place] [address]Wxndyyrqgda distribution width (RBC) [Ratio]16.7 % High11.5-15.0UnCleveland Clinic South Pointe HospitalComment on above:Performed By: #### [id number] ####[facility] ([facility])[address] [place] [address] ERYTHROCYTE MEAN CORPUSCULAR HEMOGLOBIN CONCENTRATION (G/DL) BY YGTHHYTUM21.5 g/dLLow32.0-35.0UnCleveland Clinic South Pointe HospitalComment on above:Performed By: #### [id number] ####[facility] ([facility])[address] [place], [place] [address]Gavmutlduq (Bld) [Volume fraction]29.8 %Low36.0-48.0UnCleveland Clinic South Pointe HospitalComment on above:Performed By: #### [id number] ####[facility] ([facility])[address] [place], [place] [address]Kmypcmmvlj (Bld) [Mass/Vol]9.1 g/dLLow 12.0-15.0UnCleveland Clinic South Pointe HospitalComment on above:Performed By: #### [id number] ####[facility] ([facility])[address] [place], [place] [address]Qrbikjxl granulocytes (Bld) [#/Vol]0.07 10*3/uLNormal0.00-0.20UnCleveland Clinic South Pointe HospitalComment on above:Performed By: #### [id number] ####[facility] ([facility])[address] [place] [address]Ktsktwpf granulocytes/100 WBC (Bld)0.5 %Normal0.0-1.0UnCleveland Clinic South Pointe HospitalComment on above:Performed By: #### [id number] ####[facility] ([facility])[address] [place] [address] Lymphocytes (Bld) [#/Vol]1.15 10*3/uLLow1.20-4.00UnCleveland Clinic South Pointe HospitalComment on above:Performed By: #### [id number] ####[facility] ([facility])[address] [place] [address]Wpwqfemjerb/100 WBC (Bld)8.6 %Low 20.0-45.0UnCleveland Clinic South Pointe HospitalComment on above:Performed By: #### [id number] ####[facility] ([facility])[address] [place] [address]BZX (RBC) [Entitic mass]28.4 ouEvmzdw55.0-33.0UnCleveland Clinic South Pointe Hospital Comment on above:Performed By: #### [id number] ####[facility] ([facility])[address] [place] [address]VQJ (RBC) [Entitic vol]93.1 rYXsomnm16.0-98.0 [facility] HospitalComment on above:Performed By: #### [id number] ####[facility] ([facility])[address] [facility] [place] [address]Nmnyvvqlk (Bld) [#/Vol]0.80 10*3/uLNormal0.10-1.00UnCleveland Clinic South Pointe HospitalComment on above:Performed By: #### [id number] ####[facility] ([facility])[address] [facility] [place], [place] [address]Pryveizol/100 WBC (Bld)6.0 %Normal5.0-12.0UnCleveland Clinic South Pointe HospitalComment on above:Performed By: #### [id number] ####[facility] ([facility])[address] [place] [address]Pfuftvtiadf (Bld) [#/Vol] 11.20 10*3/uLHigh1.60-7.60UnCleveland Clinic South Pointe HospitalComment on above: Performed By: #### [id number] ####[facility] ([facility])[address] [place] [address]Hhlfvraynns/100 WBC (Bld)84.2 %High40.0-72.0UnCleveland Clinic South Pointe HospitalComment on above:Performed By: #### [id number] ####[facility] ([facility])[address] [place] [address]CNBQ (PER 100 WBCS) BY AUTOMATED COUNT0.0 %Asbxpu8VzkvgldzrtCleveland Clinic South Pointe HospitalComment on above: Performed By: #### [id number] ####[facility] ([facility])[address] [place] [address]PNVJLSUYJ (10*3/UL) IN BLOOD AUTOMATED [id number] 10*3/uLNormal 150-400UnCleveland Clinic South Pointe HospitalComment on above:Performed By: #### [id number] ####[facility] ([facility])[address] [place] [address]XLW (Bld) [#/Vol]3.20 10*6/uLLow3.80-5.00UnCleveland Clinic South Pointe HospitalComment on above:Performed By: #### [id number] ####[facility] ([facility])[address] [place] [address]KWB (Bld) [#/Vol]13.30 10*3/uLHigh4.00-10.60UnCleveland Clinic South Pointe HospitalComment on above:Performed By: #### [id number] ####[facility] ([facility])[address] [place] [address]QJha 87-45-0755LBJbmzet Ket[facility] Memorial HospitalGNESIUMon 16-47-3714Nranvdyps [Mass/Vol]2.4 mg/dLNormal1.9-2.7UnCleveland Clinic South Pointe HospitalComment on above:Performed By: #### [id number] ####[facility] ([facility])[address] [place], [place] [address]MVFVWLQPWHnc 90-51-7258Pbnfxkejh [Mass/Vol]3.6 mg/dLNormal2.5-5.0UnCleveland Clinic South Pointe HospitalComment on above:Performed By: #### [id number] ####[facility] ([facility])[address] [place], [place] [address]KXFO GLUCOSE METER UNSOLICITED RESULTSon 93-09-8890Ywxurna [Mass/Vol]271 mg/pLFdwt11-990ZdlsvgnekvCleveland Clinic South Pointe HospitalComment on above:Order Comment: Waived Testing in the ED is performed under the ED CLIA certificate #[id number].Result Comment: [email or web address] Performed By: #### [id number] ####[facility] ([facility])[address] [place], [place] [address]Lbqwyzd [Mass/Vol]130 mg/sXElqy06-572OgxjwxcgohCleveland Clinic South Pointe HospitalComment on above:Order Comment: Waived Testing in the ED is performed under the ED CLIA certificate #[id number].Result Comment: [email or web address] Performed By: #### [id number] ####[facility] ([facility])[address] [place], [place] [address]Bytwpjb [Mass/Vol]166 mg/cARvoq15-979VehcawqozrCleveland Clinic South Pointe HospitalComment on above:Order Comment: Waived Testing in the ED is performed under the ED CLIA certificate #[id number].Result Comment: [email or web address] Performed By: #### [id number] ####[facility] ([facility])[address] [place], [place] [address]Xxynqxp [Mass/Vol]151 mg/uQCbio14-353RcclmetknbCleveland Clinic South Pointe HospitalComment on above:Order Comment: Waived Testing in the ED is performed under the ED CLIA certificate #[id number].Result Comment: [email or web address] Performed By: #### [id number] ####[facility] ([facility])[address] [place] [address]Zkpajlb [Mass/Vol]134 mg/aPFjdg68-048KsebnywpuiCleveland Clinic South Pointe HospitalComment on above:Order Comment: Waived Testing in the ED is performed under the ED CLIA certificate #[id number].Result Comment: [email or web address] Performed By: #### [id number] ####[facility] ([facility])[address] [place] [id number] [phone] patient is Moderately Stable - Low risk of patient condition declining or worsening The patient's goals for the shift include Pain Control The clinical goals for the shift include VSS, pain control, mobilityNormal [facility]30NormalUniZanesville City Hospital ARTERIAL BLOOD GAS WITH CO-OXIMETRYon [id number] excess Calc (Bld) [Moles/Vol]0.2 mmol/LNormal-2.0-3.0UnCleveland Clinic South Pointe HospitalComment on above:Performed By: #### [id number] ####[facility] [id number] [place] [address] USACARBOXYHEMOGLOBIN/HEMOGLOBIN TOTAL % IN BLOOD1.4 %Normal 0.0-3.0UnCleveland Clinic South Pointe HospitalComment on above:Performed By: #### [id number] ####[facility] [id number] [place] [address] USACO2 (Bld) [Partial pressure]38 mm[Hg]Xlyzvl57-45NqqqklankhCleveland Clinic South Pointe Hospital Comment on above:Performed By: #### [id number] ####[facility] [id number] [place] [address] USADEOXYGENATED HEMOGLOBIN IN BLOOD0.4 %Low1-5 [facility] HospitalComment on above:Performed By: #### [id number] ####[facility] [id number] [place] [address] USAHCO3 (Bld) [Moles/Vol]24.6 mmol/BCnxbvu98.0-28.0UnCleveland Clinic South Pointe HospitalComment on above:Performed By: #### [id number] ####[facility] [id number] [place] [address] USAHemoglobin (Bld) [Mass/Vol]10.5 g/dLLow11.7-17.4 [facility] HospitalComment on above:Performed By: #### [id number] ####[facility] [id number] [place] [address] IVHEXQ9Babyrm [facility] HospitalComment on above:Performed By: #### [id number] ####[facility] [id number] [place] [address] [facility] METHEMOGLOBIN/100 IN BLOOD0.7 %Normal0.0-1.5UnCleveland Clinic South Pointe Hospital Comment on above:Performed By: #### [id number] ####[facility] [id number] [place] [address] USAOxygen (Bld) [Partial pressure]116 mm[Hg]High 83-100UnCleveland Clinic South Pointe HospitalComment on above:Performed By: #### [id number] ####[facility] [id number] [place] [address] USAOXYGEN SATURATION (%) IN ARTERIAL BLOOD99.6 %High94.0-98.0UnCleveland Clinic South Pointe HospitalComment on above:Performed By: #### [id number] ####[facility] [id number] [place] [address] USAOXYGENATED HEMOGLOBIN IN BLOOD97.5 %High90.0-95.0UnCleveland Clinic South Pointe HospitalComment on above:Performed By: #### [id number] ####[facility] [id number] [place] [address] [place] pH (Bld)7.42 [pH]Normal7.35-7.45UnCleveland Clinic South Pointe HospitalComment on above:Performed By: #### [id number] ####[facility] [id number] [place] [address] USASOURCE OF OXYGENNasal cannulaNormalUniversity Tyler County Hospital CenterComment on above:Performed By: #### [id number] ####[facility] [id number] [place] [address] USAARTERIAL BLOOD GAS WITH IONIZED CALCIUMon 10-71-8673Bjwz excess Calc (Bld) [Moles/Vol]-0.6000 mmol/LNormal -2.0-3.0UnCleveland Clinic South Pointe HospitalComment on above:Performed By: #### [id number] ####[facility] [id number] [place] [address] [place] CALCIUM IONIZED (MMOL/L) IN BLOOD1.19 mmol/LNormal1.15-1.33UnCleveland Clinic South Pointe HospitalComment on above:Performed By: #### [id number] ####[facility] [id number] [place] [address] USACO2 (Bld) [Partial pressure]46 mm[Hg]Jsflbw81-00YplqmtsiqcCleveland Clinic South Pointe HospitalComment on above:Performed By: #### [id number] ####[facility] [id number] [place] [address] USAHCO3 (Bld) [Moles/Vol]25.4 mmol/JSkjwqi63.0-28.0UnCleveland Clinic South Pointe HospitalComment on above:Performed By: #### [id number] ####[facility] [id number] [place] [address] IAGRPX8MsxljcFsntwmqcnwZanesville City HospitalComment on above:Performed By: #### [id number] ####[facility] [id number] [place] [address] USAOxygen (Bld) [Partial pressure]97 mm[Hg]Agmzjm83-960LlmfhpkxbiCleveland Clinic South Pointe HospitalComment on above:Performed By: #### [id number] ####[facility] [id number] [place] [address] USAOXYGEN SATURATION (%) IN ARTERIAL BLOOD99.4 %High94.0-98.0UnCleveland Clinic South Pointe HospitalComment on above:Performed By: #### [id number] ####[facility] [id number] [place] [address] USApH (Bld)7.35 [pH]Normal 7.35-7.45UnCleveland Clinic South Pointe HospitalComment on above:Performed By: #### [id number] ####[facility] [id number] [place] [address] USASOURCE OF OXYGENNasal cannulaNormalUniversity Chillicothe HospitalComment on above:Performed By: #### [id number] ####[facility] [id number] [place] [address] USABASIC METABOLIC PANELon 68-93-7932Istra gap [Moles/Vol]11 mmol/LNormal7-20UnCleveland Clinic South Pointe HospitalComment on above:Performed By: #### [id number] ####[facility]PITAL LAB (BEAKER)[address] [place] [address] Calcium [Mass/Vol]8.0 mg/dLLow8.6-10.3UnCleveland Clinic South Pointe HospitalComment on above:Performed By: #### [id number] ####[facility] (BEAKER)[address] [place], [place] [address]Mbwywtyt [Moles/Vol]105 mmol/HDvhhtv79-902PqqpnsscbwCleveland Clinic South Pointe HospitalComment on above:Performed By: #### [id number] ####[facility] HOSPITAL LAB (BEAKER)[address] [place], [place] [address]LJ2 [Moles/Vol]25 mmol/LNormal 21-31UnCleveland Clinic South Pointe HospitalComment on above:Performed By: #### [id number] ####[facility] (BEAKER)[address] [place], [place] [address]Awektmcqjn [Mass/Vol]1.18 mg/dLNormal0.60-1.20UnCleveland Clinic South Pointe HospitalComment on above:Performed By: #### [id number] ####[facility] (BEAKER)[address] [place], [place] [address]LFVMGBEULN FILTRATION RATE ML/MIN/1.73 SQ M.RICKKZZWH91.7 mL/min/1.73m*2Low>60.0UnCleveland Clinic South Pointe HospitalComment on above:Result Comment: [facility]???s estimated glomerular filtration rate (eGFR) will [...] anyone group of individuals.Performed By: #### [id number] ####[facility] ([facility])[address] [place], [place] [address]Tqpqgsu [Mass/Vol]204 mg/oYBqnw62-100TxlrtnimvpCleveland Clinic South Pointe HospitalComment on above:Performed By: #### [id number] ####[facility] ([facility])[address] [place], [place] [address]Qcyzldpvm [Moles/Vol]3.8 mmol/L Normal3.5-5.1UnCleveland Clinic South Pointe HospitalComment on above:Performed By: #### [id number] ####[facility] ([facility])[address] [place] [address] Sodium [Moles/Vol]137 mmol/UAmkwxh321-288CjzkufnwboCleveland Clinic South Pointe Hospital Comment on above:Performed By: #### [id number] ####[facility] ([facility])[address] [place], [place] [address]Xvsk nitrogen [Mass/Vol]21 mg/dLNormal7-25 [facility] HospitalComment on above:Performed By: #### [id number] ####[facility] ([facility])[address] [place], [place] [address]DDXI NITROGEN/CREATININE (MASS RATIO) IN SER/PLAS17.8NormalUniversCleveland Clinic Marymount HospitalComment on above:Performed By: #### [id number] ####[facility] ([facility])[address] [place], [place] [address]ZPJIXBF, IONIZEDon 27-78-5174NNZXAOW IONIZED (MMOL/L) IN BLOOD1.14 mmol/LLow1.15-1.33UnCleveland Clinic South Pointe HospitalComment on above:Performed By: #### [id number] ####[facility] [id number] [place] [address] USACALCIUM IONIZED (MMOL/L) IN BLOOD1.19 mmol/L Normal1.15-1.33UnCleveland Clinic South Pointe HospitalComment on above:Performed By: #### CALCIUM, IONIZED ####[facility] [id number] [place] [address] USACBCon 91-04-5334Wdomzgfwdsb distribution width (RBC) [Ratio]16.1 %High 11.5-15.0UnCleveland Clinic South Pointe HospitalComment on above:Performed By: #### [id number] ####[facility] (BEAKER)[address] [place] [address] ERYTHROCYTE MEAN CORPUSCULAR HEMOGLOBIN CONCENTRATION (G/DL) BY MCOCNGXAU59.2 g/nZXdkrzf95.0-35.0UnCleveland Clinic South Pointe HospitalComment on above:Performed By: #### [id number] ####[facility] (BEAKER)[address] [place], [place] [address]Nfifdlppnp (Bld) [Volume fraction]30.7 %Low36.0-48.0UnCleveland Clinic South Pointe HospitalComment on above:Performed By: #### [id number] ####[facility] (BEAKER)[address] [place], [place] [address]Voyjvzgakd (Bld) [Mass/Vol]9.9 g/dLLow 12.0-15.0UnCleveland Clinic South Pointe HospitalComment on above:Performed By: #### [id number] ####[facility] HOSPITAL LAB (BEAKER)[address] [place], [place] [address]ELL (RBC) [Entitic mass]28.6 rwKzassy47.0-33.0UnCleveland Clinic South Pointe HospitalComment on above:Performed By: #### [id number] ####[facility]OSPITAL LAB (BEAKER)[address] [place], [place] [address]VUT (RBC) [Entitic vol]88.7 iCUeroka74.0-98.0UnCleveland Clinic South Pointe HospitalComment on above:Performed By: #### [id number] ####[facility] ([facility])[address] [place] [address]TTPQHWLNL (10*3/UL) IN BLOOD AUTOMATED [id number] 10*3/gWYsh555-218GmnqgewfqhCleveland Clinic South Pointe Hospital Comment on above:Performed By: #### [id number] ####[facility] ([facility])[address] [place] [address]BLI (Bld) [#/Vol]3.46 10*6/uLLow3.80-5.00UnCleveland Clinic South Pointe HospitalComment on above:Performed By: #### [id number] ####[facility] ([facility])[address] [place] [address]HST (Bld) [#/Vol]13.37 10*3/uLHigh4.00-10.60UnCleveland Clinic South Pointe HospitalComment on above: Performed By: #### [id number] ####[facility] ([facility])[address] [place] [address]XMR WITH AUTO DIFFERENTIALon 16-85-8924Sqerynmez (Bld) [#/Vol]0.02 10*3/uLNormal0.00-0.20UnCleveland Clinic South Pointe HospitalComment on above:Performed By: #### [id number] ####[facility] ([facility])[address] [place] [address]Ljxzkflnj/100 WBC (Bld)0.2 %Normal0.0-1.0UnCleveland Clinic South Pointe HospitalComment on above:Performed By: #### [id number] ####[facility] ([facility])[address] [place] [address]Vhpnelsrznd (Bld) [#/Vol]0.00 10*3/uL Normal0.00-0.50UnCleveland Clinic South Pointe HospitalComment on above:Performed By: #### [id number] ####[facility] ([facility])[address] [place] [address] Eosinophils/100 WBC (Bld)0.0 %Normal0.0-6.0UnC[facility] Clinic [facility] Hospital Comment on above:Performed By: #### [id number] ####[facility] ([facility])[address] [place], [place] [address]Xolovaalbhg distribution width (RBC) [Ratio]16.1 % High11.5-15.0UnCleveland Clinic South Pointe HospitalComment on above:Performed By: #### [id number] ####[facility] ([facility])[address] [place] [address] ERYTHROCYTE MEAN CORPUSCULAR HEMOGLOBIN CONCENTRATION (G/DL) BY ZXXQXDHUG53.0 g/xTXrrdjt72.0-35.0UnCleveland Clinic South Pointe HospitalComment on above:Performed By: #### [id number] ####[facility] ([facility])[address] [place], [place] [address]Vjmsnwwnuf (Bld) [Volume fraction]32.5 %Low36.0-48.0UnCleveland Clinic South Pointe HospitalComment on above:Performed By: #### [id number] ####[facility] ([facility])[address] [place], [place] [address]Icccuecwjr (Bld) [Mass/Vol]10.4 g/dL Low12.0-15.0UnCleveland Clinic South Pointe HospitalComment on above:Performed By: #### [id number] ####[facility] ([facility])[address] [place] [address] Immature granulocytes (Bld) [#/Vol]0.05 10*3/uLNormal0.00-0.20UnCleveland Clinic South Pointe HospitalComment on above:Performed By: #### [id number] ####[facility] ([facility])[address] [place], [place] [address]Neymrfwc granulocytes/100 WBC (Bld)0.4 %Normal0.0-1.0UnCleveland Clinic South Pointe HospitalComment on above: Performed By: #### [id number] ####[facility] ([facility])[address] [place], [place] [address]Rlpdnhvvbdw (Bld) [#/Vol]0.98 10*3/uLLow1.20-4.00UnCleveland Clinic South Pointe HospitalComment on above:Performed By: #### [id number] ####[facility] ([facility])[address] [place], [place] [address]Wcrhbsrnfum/100 WBC (Bld) 7.8 %Low20.0-45.0UnCleveland Clinic South Pointe HospitalComment on above:Performed By: #### [id number] ####[facility] ([facility])[address] [place], [place] [address]VWM (RBC) [Entitic mass]28.3 qgMbilqo16.0-33.0UnCleveland Clinic South Pointe HospitalComment on above:Performed By: #### [id number] ####[facility] ([facility])[address] [place], [place] [address]XON (RBC) [Entitic vol]88.3 fLNormal 82.0-98.0UnCleveland Clinic South Pointe HospitalComment on above:Performed By: #### [id number] ####[facility] ([facility])[address] [place] [address] Monocytes (Bld) [#/Vol]0.54 10*3/uLNormal0.10-1.00UnCleveland Clinic South Pointe HospitalComment on above:Performed By: #### [id number] ####[facility] ([facility])[address] [facility] [place], [place] [address]Gwkvoxjub/100 WBC (Bld)4.3 %Low 5.0-12.0UnCleveland Clinic South Pointe HospitalComment on above:Performed By: #### [id number] ####[facility] ([facility])[address] [place] [address] Neutrophils (Bld) [#/Vol]11.04 10*3/uLHigh1.60-7.60UnCleveland Clinic South Pointe HospitalComment on above:Performed By: #### [id number] ####[facility] (BEAKER)[address] [place] [place] [address]Kmhlrvbmpre/100 WBC (Bld)87.3 %High 40.0-72.0UnCleveland Clinic South Pointe HospitalComment on above:Performed By: #### [id number] ####[facility] ([facility])[address] [place] [address]KMZJ (PER 100 WBCS) BY AUTOMATED COUNT0.0 %Nxbxau9UvvxrrdczkCleveland Clinic South Pointe Hospital Comment on above:Performed By: #### [id number] ####[facility] ([facility])[address] [place] [address]EMBCWWXSS (10*3/UL) IN BLOOD AUTOMATED [id number] 10*3/xECzzent783-555WwyvpvvofgCleveland Clinic South Pointe HospitalComment on above: Performed By: #### [id number] ####[facility] ([facility])[address] [place] [address]NTD (Bld) [#/Vol]3.68 10*6/uLLow3.80-5.00UnCleveland Clinic South Pointe HospitalComment on above:Performed By: #### [id number] ####[facility] ([facility])[address] [place] [address]BWE (Bld) [#/Vol]12.63 10*3/uLHigh 4.00-10.60UnCleveland Clinic South Pointe HospitalComment on above:Performed By: #### [id number] ####[facility] (BEAKER)[address] [place] [address] Basophils (Bld) [#/Vol]0.01 10*3/uLNormal0.00-0.20UnCleveland Clinic South Pointe HospitalComment on above:Performed By: #### [id number] ####[facility] (BEAKER)[address] [place] [address]Mgdyyntlh/100 WBC (Bld)0.1 %Normal 0.0-1.0UnCleveland Clinic South Pointe HospitalComment on above:Performed By: #### [id number] ####[facility] (BEAKER)[address] [place] [address] Eosinophils (Bld) [#/Vol]0.00 10*3/uLNormal0.00-0.50UnCleveland Clinic South Pointe HospitalComment on above:Performed By: #### [id number] ####[facility] ([facility])[address] [place], [place] [address]Xamsyrmapeo/100 WBC (Bld)0.0 %Normal 0.0-6.0UnCleveland Clinic South Pointe HospitalComment on above:Performed By: #### [id number] ####[facility] ([facility])[address] [place] [address] Erythrocyte distribution width (RBC) [Ratio]16.4 %High11.5-15.0UnCleveland Clinic South Pointe HospitalComment on above:Performed By: #### [id number] ####[facility] ([facility])[address] [place], [place] [address]MPZFIOABNAR MEAN CORPUSCULAR HEMOGLOBIN CONCENTRATION (G/DL) BY FWKEFMHAA12.6 g/dLLow32.0-35.0 [facility] HospitalComment on above:Performed By: #### [id number] ####[facility] ([facility])[address] [place], [place] [address]Jnrqfslhxo (Bld) [Volume fraction]31.0 %Low36.0-48.0UnCleveland Clinic South Pointe HospitalComment on above:Performed By: #### [id number] ####[facility] ([facility])[address] [place], [place] [address]Qvudehgiaa (Bld) [Mass/Vol]9.8 g/dLLow12.0-15.0UnCleveland Clinic South Pointe HospitalComment on above:Performed By: #### [id number] ####[facility] (BEAKER)[address] [place], [place] [address]Ilkwzqyl granulocytes (Bld) [#/Vol]0.05 10*3/uLNormal0.00-0.20UnC[facility] Clinic [facility] Comment on above:Performed By: #### [id number] ####[facility] ([facility])[address] [place] [address]Wyznesig granulocytes/100 WBC (Bld)0.5 %Normal 0.0-1.0UnCleveland Clinic South Pointe HospitalComment on above:Performed By: #### [id number] ####[facility] ([facility])[address] [place] [address] Lymphocytes (Bld) [#/Vol]0.58 10*3/uLLow1.20-4.00UnCleveland Clinic South Pointe HospitalComment on above:Performed By: #### [id number] ####[facility] ([facility])[address] [place], [place] [address]Ajfermltmnj/100 WBC (Bld)6.3 %Low 20.0-45.0UnCleveland Clinic South Pointe HospitalComment on above:Performed By: #### [id number] ####[facility] ([facility])[address] [place], [place] [address]OEL (RBC) [Entitic mass]28.2 csOewwch47.0-33.0UnC[facility] Clinic [facility] Comment on above:Performed By: #### [id number] ####[facility] ([facility])[address] [place], [place] [address]EZR (RBC) [Entitic vol]89.3 sQFfpltw96.0-98.0 [facility] HospitalComment on above:Performed By: #### [id number] ####[facility] ([facility])[address] [facility] [place] [address]Gisxyackc (Bld) [#/Vol]0.21 10*3/uLNormal0.10-1.00UnCleveland Clinic South Pointe HospitalComment on above:Performed By: #### [id number] ####[facility] ([facility])[address] [facility] [place] [place] [address]Zpocvjysm/100 WBC (Bld)2.3 %Low5.0-12.0UnCleveland Clinic South Pointe HospitalComment on above:Performed By: #### [id number] ####[facility] ([facility])[address] [place] [address]Isakkfsrcvz (Bld) [#/Vol]8.38 10*3/uL High1.60-7.60UnCleveland Clinic South Pointe HospitalComment on above:Performed By: #### [id number] ####[facility] ([facility])[address] [place] [address] Neutrophils/100 WBC (Bld)90.8 %High40.0-72.0UnC[facility] Clinic [facility] Hospital Comment on above:Performed By: #### [id number] ####[facility] ([facility])[address] [place] [address]TSXK (PER 100 WBCS) BY AUTOMATED COUNT0.0 %Normal0 [facility] HospitalComment on above:Performed By: #### [id number] ####[facility] ([facility])[address] [place] [address]RHVKPARFI (10*3/UL) IN BLOOD AUTOMATED OIDTV855 10*3/sFPgp854-107CpydrjtffbCleveland Clinic South Pointe HospitalComment on above:Performed By: #### [id number] ####[facility] ([facility])[address] [place] [address]EUR (Bld) [#/Vol]3.47 10*6/uLLow 3.80-5.00UnCleveland Clinic South Pointe HospitalComment on above:Performed By: #### [id number] ####[facility] ([facility])[address] [place] [address]GCX (Bld) [#/Vol]9.23 10*3/uLNormal4.00-10.60UnC[facility] Clinic [facility] Hospital Comment on above:Performed By: #### [id number] ####[facility] ([facility])[address] [place] [address]GIKXJIZLUZEZV METABOLIC PANELon 16-00-6184Ttbmdgx [Mass/Vol]3.1 g/dLLow3.5-5.7UnCleveland Clinic South Pointe HospitalComment on above: Performed By: #### [id number] ####[facility] ([facility])[address] [place] [address]JIY [Catalytic activity/Vol]60 U/JLcptpv13-715IiqtavumfkCleveland Clinic South Pointe HospitalComment on above:Performed By: #### [id number] ####[facility] ([facility])[address] [place] [address]KWX [Catalytic activity/Vol]4 U/LLow 7-52UnCleveland Clinic South Pointe HospitalComment on above:Performed By: #### [id number] ####[facility] ([facility])[address] [place], [place] [address]Hqzue gap [Moles/Vol]9 mmol/LNormal7-20UnCleveland Clinic South Pointe HospitalComment on above:Performed By: #### [id number] ####[facility] ([facility])[address] [place], [place] [address]QOG [Catalytic activity/Vol]11 U/KUot09-98QholpejinpCleveland Clinic South Pointe HospitalComment on above:Performed By: #### [id number] ####[facility] ([facility])[address] [place], [place] [address]Zjnmcvmkz [Mass/Vol]0.4 mg/dL Normal0.3-1.0UnCleveland Clinic South Pointe HospitalComment on above:Performed By: #### [id number] ####[facility] ([facility])[address] [place] [address] Calcium [Mass/Vol]8.0 mg/dLLow8.6-10.3UnCleveland Clinic South Pointe HospitalComment on above:Performed By: #### [id number] ####[facility] ([facility])[address] [place], [place] [address]Dkxghiny [Moles/Vol]108 mmol/ZHlkb69-938JpqbteizdpCleveland Clinic South Pointe HospitalComment on above:Performed By: #### [id number] ####[facility] (BEAKER)[address] [place], [place] [address] [Moles/Vol]25 mmol/PYzhgfw97-38 [facility] HospitalComment on above:Performed By: #### [id number] ####[facility] ([facility])[address] [place] [address]Rhbcsooaly [Mass/Vol]1.06 mg/dLNormal0.60-1.20UnCleveland Clinic South Pointe HospitalComment on above:Performed By: #### [id number] ####[facility] ([facility])[address] [place], [place] [address]KOFYUXTVAW FILTRATION RATE ML/MIN/1.73 SQ M.OTOGYYCPL99.1 mL/min/1.73m*2Low>60.0UnCleveland Clinic South Pointe HospitalComment on above:Result Comment: [facility]???s estimated glomerular filtration rate (eGFR) will [...] anyone group of individuals.Performed By: #### [id number] ####[facility] ([facility])[address] [place], [place] [address]Wiaeovp [Mass/Vol]133 mg/uAOtfx15-815VhzncevtnaCleveland Clinic South Pointe HospitalComment on above:Performed By: #### [id number] ####[facility] ([facility])[address] [place], [place] [address]Bvirpjwdx [Moles/Vol]4.2 mmol/L Normal3.5-5.1UnCleveland Clinic South Pointe HospitalComment on above:Performed By: #### [id number] ####[facility] ([facility])[address] [place] [address] Protein [Mass/Vol]5.2 g/dLLow6.0-8.3UnCleveland Clinic South Pointe HospitalComment on above:Performed By: #### [id number] ####[facility] ([facility])[address] [place], [place] [address]Wawnfv [Moles/Vol]138 mmol/MWswexd132-106OztxihdibwCleveland Clinic South Pointe HospitalComment on above:Performed By: #### [id number] ####[facility] ([facility])[address] [place], [place] [address]Yjpj nitrogen [Mass/Vol]19 mg/dLNormal 7-25UnCleveland Clinic South Pointe HospitalComment on above:Performed By: #### [id number] ####[facility] ([facility])[address] [place], [place] [address]YOME NITROGEN/CREATININE (MASS RATIO) IN SER/PLAS17.9NormalUniversCleveland Clinic Marymount HospitalComment on above:Performed By: #### [id number] ####[facility] ([facility])[address] [place], [place] [address]Tgskcsl [Mass/Vol]3.3 g/dLLow3.5-5.7 [facility] HospitalComment on above:Performed By: #### [id number] ####[facility] ([facility])[address] [place], [place] [address]EUK [Catalytic activity/Vol]67 U/MEdsmig86-371QetgziauiqCleveland Clinic South Pointe HospitalComment on above:Performed By: #### [id number] ####[facility] ([facility])[address] [place], [place] [address]EMR [Catalytic activity/Vol]7 U/LNormal7-52UnCleveland Clinic [facility] Pointe HospitalComment on above:Performed By: #### [id number] ####[facility] ([facility])[address] [place], [place] [address]Wwvcd gap [Moles/Vol]11 mmol/L Normal7-20UnCleveland Clinic South Pointe HospitalComment on above:Performed By: #### [id number] ####[facility] ([facility])[address] [place], [place] [address]CHI [Catalytic activity/Vol]14 U/RNjalch66-85MgjahcncpmCleveland Clinic [facility] Comment on above:Performed By: #### [id number] ####[facility] ([facility])[address] [place], [place] [address]Hinadmuqc [Mass/Vol]0.4 mg/dLNormal0.3-1.0 [facility] HospitalComment on above:Performed By: #### [id number] ####[facility] ([facility])[address] [place], [place] [address]Anezlxd [Mass/Vol]8.4 mg/dLLow8.6-10.3UnCleveland Clinic South Pointe HospitalComment on above:Performed By: #### [id number] ####[facility] ([facility])[address] [place], [place] [address]Evvojfet [Moles/Vol]108 mmol/VHkwo26-398LyiphqdnkfCleveland Clinic South Pointe HospitalComment on above:Performed By: #### [id number] ####[facility] ([facility])[address] [place], [place] [address]TJ7 [Moles/Vol]25 mmol/JYivzgv09-22 [facility] HospitalComment on above:Performed By: #### [id number] ####[facility] ([facility])[address] [place], [place] [address]Rkvagwsbkr [Mass/Vol]1.24 mg/dLHigh0.60-1.20UnCleveland Clinic South Pointe HospitalComment on above:Performed By: #### [id number] ####[facility] ([facility])[address] [place], [place] [address]RQGPUTGBLP FILTRATION RATE ML/MIN/1.73 SQ M.NLIMXJPEN36.0 mL/min/1.73m*2Low>60.0UnCleveland Clinic South Pointe HospitalComment on above:Result Comment: [facility]???s estimated glomerular filtration rate (eGFR) will [...] anyone group of individuals.Performed By: #### [id number] ####[facility] ([facility])[address] [place] [address]Ixbworm [Mass/Vol]146 mg/dYPrzt00-109HcdrurbfrmCleveland Clinic South Pointe HospitalComment on above:Performed By: #### [id number] ####[facility] ([facility])[address] [place] [address]Dtqowgqoq [Moles/Vol]4.1 mmol/L Normal3.5-5.1UnCleveland Clinic South Pointe HospitalComment on above:Performed By: #### [id number] ####[facility] ([facility])[address] [place] [address] Protein [Mass/Vol]5.7 g/dLLow6.0-8.3UnCleveland Clinic South Pointe HospitalComment on above:Performed By: #### [id number] ####[facility] ([facility])[address] [place] [address]Shosne [Moles/Vol]140 mmol/TPqihib686-727OmnmyswbbrCleveland Clinic South Pointe HospitalComment on above:Performed By: #### [id number] ####[facility] ([facility])[address] [place], [place] [address]Nayp nitrogen [Mass/Vol]21 mg/dLNormal 7-25UnCleveland Clinic South Pointe HospitalComment on above:Performed By: #### [id number] ####[facility] ([facility])[address] [place] [address]NGCR NITROGEN/CREATININE (MASS RATIO) IN SER/PLAS16.9NormalUniversCleveland Clinic Marymount HospitalComment on above:Performed By: #### [id number] ####[facility] ([facility])[address] [place] [address]XQT ABDOMEN W IV CONTRASTon 01-29-2024 CTA ABDOMEN W IV CONTRASTInvalid Interpretation CodeUnCleveland Clinic South Pointe HospitalCTA CHEST W IV CONTRASTon [id number] CHEST W IV CONTRASTNormal Pike Community HospitalLACTIC ACID WITH 4 HOUR REFLEXon 01-29-2024 LACTATE (MMOL/L) IN SER/PLAS0.9 mmol/LNormal0.5-2.2UnCleveland Clinic South Pointe HospitalComment on above:Performed By: #### [id number] ####[facility] ([facility])[address] [place] [address]EVZFIDH (MMOL/L) IN SER/PLAS1.6 mmol/L Normal0.5-2.2UnCleveland Clinic South Pointe HospitalComment on above:Performed By: #### [id number] ####[facility] ([facility])[address] [place] [address] LIPASEon 86-41-9594VOJVZU (U/L) IN SER/PLAS16 U/MUaoqsc10-28AvfuqqwegvCleveland Clinic South Pointe HospitalComment on above:Performed By: #### [id number] ####[facility] ([facility])[address] [place] [address]VYZJESYCHbg 76-32-0262Zahirjzbv [Mass/Vol]2.4 mg/dLNormal1.9-2.7UnCleveland Clinic South Pointe HospitalComment on above:Performed By: #### [id number] ####[facility] ([facility])[address] [place], [place] [address]Mndrqbxtz [Mass/Vol]2.5 mg/dLNormal1.9-2.7UnCleveland Clinic South Pointe HospitalComment on above:Performed By: #### [id number] ####[facility] ([facility])[address] [place], [place] [address]Zhfqgprol [Mass/Vol]2.7 mg/dLNormal1.9-2.7UnCleveland Clinic South Pointe HospitalComment on above:Performed By: #### [id number] ####[facility] ([facility])[address] [place] [address] PHOSPHORUSon 04-85-5477Urfunsxde [Mass/Vol]3.1 mg/dLNormal2.5-5.0UnCleveland Clinic South Pointe HospitalComment on above:Performed By: #### [id number] ####[facility] ([facility])[address] [place], [place] [address]Ehwvveqpb [Mass/Vol]3.3 mg/dLNormal2.5-5.0UnCleveland Clinic South Pointe HospitalComment on above:Performed By: #### [id number] ####[facility] ([facility])[address] [place] [address] Magnesium [Mass/Vol]4.2 mg/dLNormal2.5-5.0UnCleveland Clinic [facility] Comment on above:Performed By: #### [id number] ####[facility] ([facility])[address] [place], [place] [address]KTUY GLUCOSE METER UNSOLICITED RESULTSon 01-29-2024 Glucose [Mass/Vol]127 mg/vEMbrg54-895EgwglbjyamCleveland Clinic South Pointe HospitalComment on above:Order Comment: Waived Testing in the ED is performed under the ED CLIA certificate #[id number].Result Comment: [id number] By: #### [id number] ####[facility] ([facility])[address] [place], [place] [address]Hqwpliy [Mass/Vol]157 mg/aXAddg81-689XpvxxxqifoCleveland Clinic South Pointe HospitalComment on above:Order Comment: Waived Testing in the ED is performed under the ED CLIA certificate #[id number].Result Comment: [id number] By: #### [id number] ####[facility] ([facility])[address] [place], [place] [address]Agvrffx [Mass/Vol]177 mg/qLZowh22-059NewppvcqluCleveland Clinic South Pointe HospitalComment on above:Order Comment: Waived Testing in the ED is performed under the ED CLIA certificate #[id number].Result Comment: vmjvzyg2Kjrriglab By: #### [id number] ####[facility] ([facility])[address] [place], [place] [address]Kopwrwc [Mass/Vol]192 mg/bYHdyt10-445TiyfgcgixoCleveland Clinic South Pointe HospitalComment on above:Order Comment: Waived Testing in the ED is performed under the ED CLIA certificate #[id number].Result Comment: [id number] By: #### [id number] ####[facility] ([facility])[address] [place] [address]HPUBWQBKQ, WHOLE BLOODon 61-92-6578Odjryvxnk [Moles/Vol]4.0 mmol/LNormal3.5-5.1UnCleveland Clinic South Pointe HospitalComment on above:Performed By: #### POTASSIUM, WHOLE BLOOD ####[facility] [id number] [place] [address] USASODIUM, WHOLE BLOODon 30-83-9194MUWIWC, WHOLE SFWKU576Utksbj570-961RmtmvfjxmsCleveland Clinic South Pointe HospitalComment on above:Performed By: #### SODIUM, WHOLE BLOOD ####[facility] [id number] [place] [address] USATROPONIN Ion 01-29-2024 Troponin I.cardiac [Mass/Vol]0.02 ng/mLNormal0.00-0.04UnCleveland Clinic South Pointe HospitalComment on above:Performed By: #### [id number] ####[facility] ([facility])[address] [place], [place] [address]Gvluiwai I.cardiac [Mass/Vol]0.07 ng/mLHigh0.00-0.04UnCleveland Clinic South Pointe HospitalComment on above:Performed By: #### [id number] ####[facility] ([facility])[address] [place] [address] Troponin I.cardiac [Mass/Vol]0.03 ng/mLNormal0.00-0.04UnCleveland Clinic South Pointe HospitalComment on above:Performed By: #### [id number] ####[facility] ([facility])[address] [place] [address]17sx 47-67-940735LzyntfDrboxolzor of Faith Community HospitalMmeqbe52UfdyapNjpijpozol Chillicothe HospitalANESon 53-13-7642ROPFMezyjxKqzqzeuiuz [facility] HospitalANESNormalUniversity Chillicothe HospitalARTERIAL BLOOD GAS WITH CO-OXIMETRYon 92-58-5085Ovpr excess Calc (Bld) [Moles/Vol]-2.0000 mmol/LNormal-2.0-3.0UnCleveland Clinic South Pointe HospitalComment on above:Performed By: #### [id number] ####[facility] [id number] [place] [address] USACARBOXYHEMOGLOBIN/HEMOGLOBIN TOTAL % IN BLOOD1.9 %Normal0.0-3.0UnCleveland Clinic South Pointe HospitalComment on above: Performed By: #### [id number] ####[facility] [id number] [place] [address] USACO2 (Bld) [Partial pressure]52 mm[Hg]Gttw87-72QnanmmcgazCleveland Clinic South Pointe HospitalComment on above:Performed By: #### [id number] ####[facility] [id number] [place] [address] USADEOXYGENATED HEMOGLOBIN IN BLOOD0.9 %Low1-5UnCleveland Clinic South Pointe HospitalComment on above:Performed By: #### [id number] ####[facility] [id number] [place] [address] USAHCO3 (Bld) [Moles/Vol]25.0 mmol/IIhefkj50.0-28.0[facility] Comment on above:Performed By: #### [id number] ####[facility] [id number] [place] [address] USAHemoglobin (Bld) [Mass/Vol]11.1 g/dLLow 11.7-17.4UnCleveland Clinic South Pointe HospitalComment on above:Performed By: #### [id number] ####[facility] [id number] [place] [address] USALPM3 NormalUnCleveland Clinic South Pointe HospitalComment on above:Performed By: #### [id number] ####[facility] [id number] [place] [address] [place] METHEMOGLOBIN/100 IN BLOOD0.9 %Normal0.0-1.5UnCleveland Clinic [facility] Comment on above:Performed By: #### [id number] ####[facility] [id number] [place] [address] USAOxygen (Bld) [Partial pressure]103 mm[Hg]High 83-100[facility] Community HospitalComment on above:Performed By: #### [id number] ####[facility] [id number] [place] [address] USAOXYGEN SATURATION (%) IN ARTERIAL BLOOD99.1 %High94.0-98.0[facility] Community HospitalComment on above:Performed By: #### [id number] ####[facility] [id number] [place] [address] USAOXYGENATED HEMOGLOBIN IN BLOOD96.3 %High90.0-95.0UnCleveland Clinic South Pointe HospitalComment on above:Performed By: #### [id number] ####[facility] [id number] [place] [address] [place] pH (Bld)7.29 [pH]Low7.35-7.45UnCleveland Clinic South Pointe HospitalComment on above:Performed By: #### [id number] ####[facility] [id number] [place] [address] USASOURCE OF OXYGENNasal cannulaNormalUniversity Chillicothe HospitalComment on above:Performed By: #### [id number] ####[facility] [id number] [place] [address] USAB-TYPE NATRIURETIC PEPTIDEon 69-41-8678Txkqthgrmzg peptide B (Bld) [Mass/Vol]869 pg/mLHigh0-100UnCleveland Clinic South Pointe HospitalComment on above:Performed By: #### [id number] ####[facility] ([facility])[address] [place], [place] [address]EHMTD METABOLIC PANELon 96-84-4370Gbigr gap [Moles/Vol]11 mmol/LNormal7-20UnCleveland Clinic South Pointe HospitalComment on above:Performed By: #### [id number] ####[facility] ([facility])[address] [place], [place] [address]Ewdatjv [Mass/Vol]8.2 mg/dLLow8.6-10.3 [facility] HospitalComment on above:Performed By: #### [id number] ####[facility] ([facility])[address] [place] [address]Zgnazhdh [Moles/Vol]106 mmol/AUfwggv98-573EfetuxffncCleveland Clinic South Pointe HospitalComment on above:Performed By: #### [id number] ####[facility] ([facility])[address] [place] [address]IQ9 [Moles/Vol]26 mmol/LGovjvk07-91AvtijcldlkCleveland Clinic South Pointe HospitalComment on above:Performed By: #### [id number] ####[facility] ([facility])[address] [place] [address]Omaviayaqi [Mass/Vol]1.17 mg/dLNormal 0.60-1.20UnCleveland Clinic South Pointe HospitalComment on above:Performed By: #### [id number] ####[facility] ([facility])[address] [place], [place] [address]OLUPMPBXDJ FILTRATION RATE ML/MIN/1.73 SQ M.XNTGOLQJM92.2 mL/min/1.73m*2Low>60.0UnCleveland Clinic South Pointe HospitalComment on above:Result Comment: [facility]???s estimated glomerular filtration rate (eGFR) will [...] group of individuals. Performed By: #### [id number] ####[facility] ([facility])[address] [place] [address]Pjycjod [Mass/Vol]161 mg/fWAblr57-684LlsuhxienuCleveland Clinic South Pointe HospitalComment on above:Performed By: #### [id number] ####[facility] ([facility])[address] [place], [place] [address]Uvslcezgz [Moles/Vol]4.1 mmol/LNormal 3.5-5.1UnCleveland Clinic South Pointe HospitalComment on above:Performed By: #### [id number] ####[facility] ([facility])[address] [place], [place] [address]Fgxwcc [Moles/Vol]139 mmol/FKyfgyq227-017HquwiphwpaCleveland Clinic South Pointe HospitalComment on above:Performed By: #### [id number] ####[facility] ([facility])[address] [place], [place] [address]Zqoz nitrogen [Mass/Vol]20 mg/dLNormal7-25UnCleveland Clinic South Pointe HospitalComment on above:Performed By: #### [id number] ####[facility] ([facility])[address] [place], [place] [address]AHXF NITROGEN/CREATININE (MASS RATIO) IN SER/PLAS17.1NormalUnCleveland Clinic South Pointe HospitalComment on above: Performed By: #### [id number] ####[facility] ([facility])[address] [place], [place] [address]Hured gap [Moles/Vol]8 mmol/LNormal7-20UnCleveland Clinic South Pointe HospitalComment on above:Performed By: #### [id number] ####[facility] ([facility])[address] [place], [place] [address]Ndpjdcp [Mass/Vol]8.8 mg/dLNormal 8.6-10.3UnCleveland Clinic South Pointe HospitalComment on above:Performed By: #### [id number] ####[facility] ([facility])[address] [place], [place] [address]Uswsvkzy [Moles/Vol]105 mmol/LRtkvyj98-854UzgpikwfvyCleveland Clinic South Pointe HospitalComment on above:Performed By: #### [id number] ####[facility] ([facility])[address] [place], [place] [address]TI0 [Moles/Vol]29 mmol/HDjbvcy34-43LdtrodrkyqCleveland Clinic South Pointe HospitalComment on above:Performed By: #### [id number] ####[facility] ([facility])[address] [place] [address]Wldfufeogt [Mass/Vol]1.19 mg/dLNormal 0.60-1.20UnCleveland Clinic South Pointe HospitalComment on above:Performed By: #### [id number] ####[facility] ([facility])[address] [place] [place] [address]ZGOVKRLYIY FILTRATION RATE ML/MIN/1.73 SQ M.SYAWOANEX19.2 mL/min/1.73m*2Low>60.0UnCleveland Clinic South Pointe HospitalComment on above:Result Comment: [facility]???s estimated glomerular filtration rate (eGFR) will [...] group of individuals. Performed By: #### [id number] ####[facility] ([facility])[address] [place] [address]Ihdndvc [Mass/Vol]97 mg/vJAdvpcl38-749CmqgubialnCleveland Clinic South Pointe HospitalComment on above:Performed By: #### [id number] ####[facility] ([facility])[address] [place] [address]Knkxreyiu [Moles/Vol]3.7 mmol/LNormal 3.5-5.1UnCleveland Clinic [facility] Pointe HospitalComment on above:Performed By: #### [id number] ####[facility] ([facility])[address] [place] [address]Qpgpzl [Moles/Vol]138 mmol/OUewmsj241-992UpzxwobgaiCleveland Clinic South Pointe HospitalComment on above:Performed By: #### [id number] ####[facility] ([facility])[address] [place] [address]Uddu nitrogen [Mass/Vol]22 mg/dLNormal7-25UnCleveland Clinic [facility] Pointe HospitalComment on above:Performed By: #### [id number] ####[facility] ([facility])[address] [place] [address]NHSY NITROGEN/CREATININE (MASS RATIO) IN SER/PLAS18.5NormalUniversCleveland Clinic Marymount HospitalComment on above: Performed By: #### [id number] ####[facility] ([facility])[address] [place] [address]JVXAXJE, IONIZEDon 15-67-4353LWBGBZL IONIZED (MMOL/L) IN BLOOD1.17 mmol/LNormal1.15-1.33UnCleveland Clinic [facility] Pointe HospitalComment on above: Performed By: #### CALCIUM, IONIZED ####[facility] [id number] [place] [address] USACBC WITH AUTO DIFFERENTIALon 72-80-9784Gjsajkcyz (Bld) [#/Vol]0.02 10*3/uLNormal0.00-0.20UnCleveland Clinic South Pointe HospitalComment on above:Performed By: #### [id number] ####[facility] ([facility])[address] [place] [address]Nrprscmva/100 WBC (Bld)0.2 %Normal0.0-1.0UnCleveland Clinic South Pointe HospitalComment on above:Performed By: #### [id number] ####[facility] ([facility])[address] [place] [address]Cxleqvtqkht (Bld) [#/Vol]0.02 10*3/uL Normal0.00-0.50UnCleveland Clinic [facility] Pointe HospitalComment on above:Performed By: #### [id number] ####[facility] ([facility])[address] [place] [address] Eosinophils/100 WBC (Bld)0.2 %Normal0.0-6.0UnC[facility] Clinic [facility] Comment on above:Performed By: #### [id number] ####[facility] ([facility])[address] [place] [address]Awtneflnfwj distribution width (RBC) [Ratio]16.4 % High11.5-15.0UnCleveland Clinic [facility] Pointe HospitalComment on above:Performed By: #### [id number] ####[facility] ([facility])[address] [place] [address] ERYTHROCYTE MEAN CORPUSCULAR HEMOGLOBIN CONCENTRATION (G/DL) BY VBRGJDWKX34.3 g/dLLow32.0-35.0UnCleveland Clinic [facility] Pointe HospitalComment on above:Performed By: #### [id number] ####[facility] ([facility])[address] [place], [place] [address]Pqrgnnfmxv (Bld) [Volume fraction]34.2 %Low36.0-48.0UnCleveland Clinic [facility] Pointe HospitalComment on above:Performed By: #### [id number] ####[facility] ([facility])[address] [place], [place] [address]Hhcbvpzvbz (Bld) [Mass/Vol]10.7 g/dL Low12.0-15.0UnCleveland Clinic [facility] Pointe HospitalComment on above:Performed By: #### [id number] ####[facility] ([facility])[address] [place] [address] Immature granulocytes (Bld) [#/Vol]0.09 10*3/uLNormal0.00-0.20UnCleveland Clinic [facility] Pointe HospitalComment on above:Performed By: #### [id number] ####[facility] ([facility])[address] [place], [place] [address]Tsmkqoip granulocytes/100 WBC (Bld)0.9 %Normal0.0-1.0UnCleveland Clinic [facility] Pointe HospitalComment on above: Performed By: #### [id number] ####[facility] ([facility])[address] [place], [place] [address]Vknwidalatg (Bld) [#/Vol]1.01 10*3/uLLow1.20-4.00UnCleveland Clinic [facility] Pointe HospitalComment on above:Performed By: #### [id number] ####[facility] ([facility])[address] [place], [place] [address]Opxsypddsnw/100 WBC (Bld) 9.6 %Low20.0-45.0UnCleveland Clinic [facility] Pointe HospitalComment on above:Performed By: #### [id number] ####[facility] ([facility])[address] [place] [address]IAB (RBC) [Entitic mass]28.0 myZpwlbe43.0-33.0UnCleveland Clinic [facility] Pointe HospitalComment on above:Performed By: #### [id number] ####[facility] ([facility])[address] [place] [address]BDD (RBC) [Entitic vol]89.5 fLNormal 82.0-98.0UnCleveland Clinic South Pointe HospitalComment on above:Performed By: #### [id number] ####[facility] ([facility])[address] [place] [address] Monocytes (Bld) [#/Vol]0.18 10*3/uLNormal0.10-1.00UnCleveland Clinic [facility] Pointe HospitalComment on above:Performed By: #### [id number] ####[facility] ([facility])[address] [facility] [place] [facility] [address]Cteyzehts/100 WBC (Bld)1.7 %Low 5.0-12.0UnCleveland Clinic South Pointe HospitalComment on above:Performed By: #### [id number] ####[facility] ([facility])[address] [place] [address] Neutrophils (Bld) [#/Vol]9.15 10*3/uLHigh1.60-7.60UnCleveland Clinic [facility] Pointe HospitalComment on above:Performed By: #### [id number] ####[facility] ([facility])[address] [facility], [place] [address]Oisliaoflnq/100 WBC (Bld)87.4 %High 40.0-72.0UnCleveland Clinic South Pointe HospitalComment on above:Performed By: #### [id number] ####[facility] ([facility])[address] [place] [address]PPPY (PER 100 WBCS) BY AUTOMATED COUNT0.0 %Dhmyuq2WpcxjrhehyCleveland Clinic [facility] Hospital Comment on above:Performed By: #### [id number] ####[facility] ([facility])[address] [place] [address]EKELZRHEI (10*3/UL) IN BLOOD AUTOMATED WLFNP291 10*3/cKIumpkf395-746JerzfqvilsCleveland Clinic South Pointe HospitalComment on above: Performed By: #### [id number] ####[facility] ([facility])[address] [place] [address]LNS (Bld) [#/Vol]3.82 10*6/uLNormal3.80-5.00UnCleveland Clinic South Pointe HospitalComment on above:Performed By: #### [id number] ####[facility] ([facility])[address] [place] [address]XIM (Bld) [#/Vol]10.47 10*3/uLNormal4.00-10.60UnCleveland Clinic South Pointe HospitalComment on above: Performed By: #### [id number] ####[facility] (AKER)[address] [place] [address]Wwmlfqkro (Bld) [#/Vol]0.04 10*3/uLNormal0.00-0.20UnCleveland Clinic South Pointe HospitalComment on above:Performed By: #### [id number] ####[facility] (BEAKER)[address] [place] [address]Kcoopprue/100 WBC (Bld) 0.5 %Normal0.0-1.0UnCleveland Clinic South Pointe HospitalComment on above:Performed By: #### [id number] ####[facility] (BEAKER)[address] [place] [address]Xjbzztwnteu (Bld) [#/Vol]0.21 10*3/uLNormal0.00-0.50UnCleveland Clinic South Pointe HospitalComment on above:Performed By: #### [id number] ####[facility] (BEAKER)[address] [place] [address]Jbxuvmsxufn/100 WBC (Bld)2.8 %Normal 0.0-6.0UnCleveland Clinic South Pointe HospitalComment on above:Performed By: #### [id number] ####[facility] ([facility] [place] [address] Erythrocyte distribution width (RBC) [Ratio]16.3 %High11.5-15.0UnCleveland Clinic South Pointe HospitalComment on above:Performed By: #### [id number] ####[facility] ([facility])[address] [place], [place] [address]BYXQNRVOOYB MEAN CORPUSCULAR HEMOGLOBIN CONCENTRATION (G/DL) BY PGPYIRDKF16.6 g/dLLow32.0-35.0 [facility] HospitalComment on above:Performed By: #### [id number] ####[facility] ([facility])[address] [place], [place] [address]Nyemzhdckr (Bld) [Volume fraction]34.5 %Low36.0-48.0UnCleveland Clinic South Pointe HospitalComment on above:Performed By: #### [id number] ####[facility] ([facility])[address] [place], [place] [address]Azscnbwodf (Bld) [Mass/Vol]10.9 g/dLLow12.0-15.0UnCleveland Clinic South Pointe HospitalComment on above:Performed By: #### [id number] ####[facility] ([facility])[address] [place], [place] [address]Pdejxxpz granulocytes (Bld) [#/Vol]0.04 10*3/uLNormal0.00-0.20UnCleveland Clinic South Pointe Hospital Comment on above:Performed By: #### [id number] ####[facility] ([facility])[address] [place], [place] [address]Adixbboa granulocytes/100 WBC (Bld)0.5 %Normal 0.0-1.0UnCleveland Clinic South Pointe HospitalComment on above:Performed By: #### [id number] ####[facility] ([facility])[address] [place] [address] Lymphocytes (Bld) [#/Vol]1.83 10*3/uLNormal1.20-4.00UnCleveland Clinic South Pointe HospitalComment on above:Performed By: #### [id number] ####[facility] ([facility])[address] [place], [place] [address]Oltbnijyfgv/100 WBC (Bld)24.8 %Normal 20.0-45.0UnCleveland Clinic South Pointe HospitalComment on above:Performed By: #### [id number] ####[facility] ([facility])[address] [place], [place] [address]DMX (RBC) [Entitic mass]28.0 hxAfienv98.0-33.0UnCleveland Clinic South Pointe Hospital Comment on above:Performed By: #### [id number] ####[facility] ([facility])[address] [place], [place] [address]NOA (RBC) [Entitic vol]88.7 lWFhbekz45.0-98.0 [facility] HospitalComment on above:Performed By: #### [id number] ####[facility] ([facility])[address] [place], [place] [address]Ivuipvqdw (Bld) [#/Vol]0.70 10*3/uLNormal0.10-1.00UnCleveland Clinic South Pointe HospitalComment on above:Performed By: #### [id number] ####[facility] ([facility])[address] [place], [place] [address]Psdhoqfea/100 WBC (Bld)9.5 %Normal5.0-12.0UnCleveland Clinic South Pointe HospitalComment on above:Performed By: #### [id number] ####[facility] ([facility])[address] [place], [place] [address]Fphquvcvcuj (Bld) [#/Vol] 4.57 10*3/uLNormal1.60-7.60UnCleveland Clinic South Pointe HospitalComment on above: Performed By: #### [id number] ####[facility] ([facility])[address] [place] [address]Saifpuhpjau/100 WBC (Bld)61.9 %Yfwtld43.0-72.0UnCleveland Clinic South Pointe HospitalComment on above:Performed By: #### [id number] ####[facility] ([facility])[address] [place] [address]NTBT (PER 100 WBCS) BY AUTOMATED COUNT0.0 %Vdayar4UrzdlogmhoCleveland Clinic South Pointe HospitalComment on above: Performed By: #### [id number] ####[facility] ([facility])[address] [place] [address]FTEQHFKIL (10*3/UL) IN BLOOD AUTOMATED [id number] 10*3/uLNormal 150-400UnCleveland Clinic South Pointe HospitalComment on above:Performed By: #### [id number] ####[facility] ([facility])[address] [place] [address]IPA (Bld) [#/Vol]3.89 10*6/uLNormal3.80-5.00UnCleveland Clinic South Pointe Hospital Comment on above:Performed By: #### [id number] ####[facility] ([facility])[address] [place] [address]OEW (Bld) [#/Vol]7.39 10*3/uLNormal4.00-10.60 [facility] HospitalComment on above:Performed By: #### [id number] ####[facility] ([facility])[address] [place] [address]IOTBEMXez 08-00-2180CSMPJXBLusqlwRdgkjwaoep [place] HospitalCONSULTNormal [facility] HospitalMAGNESIUMon 50-19-9680Dotwgbtwr [Mass/Vol]1.9 mg/dLNormal1.9-2.7UnCleveland Clinic South Pointe HospitalComment on above:Performed By: #### [id number] ####[facility] ([facility])[address] [place] [address]Klgkexysw [Mass/Vol]1.8 mg/dLLow1.9-2.7[facility] Comment on above:Performed By: #### [id number] ####[facility] ([facility])[address] [place], [place] [address]SBXQ/MSSA DNA NASALon 58-57-0204DXQS DNANegative NormalNegativePike Community HospitalComment on above:Order Comment: Testing methodology is [...] does not preclude nasal colonization.Performed By: #### [id number] ####[facility] ([facility])[address] [place], [place] [address]OYPZ DNANegative NormalNegativeUnCleveland Clinic South Pointe HospitalComment on above:Order Comment: Testing methodology is [...] does not preclude nasal colonization.Performed By: #### [id number] ####[facility] ([facility])[address] [place], [place] [address]AKTRWYLPgv 06-38-1664SYWUAPJAQCMAVS: 41.9 MIN K: 1723 MGY CONTRAST: 80 MLNormalUnCleveland Clinic South Pointe HospitalNURSNOTEACT 225Normal [facility] HospitalNURSNOTEOk per Dr Van to give amiodarone patient HR 53NormalUniversCleveland Clinic Marymount HospitalOPNOTEon 47-35-2223JXLDXB NormalUnCleveland Clinic South Pointe HospitalPHOSPHORUSon 79-02-1580Wdzkqdlyb [Mass/Vol]4.5 mg/dLNormal2.5-5.0[facility] HospitalComment on above:Performed By: #### [id number] ####[facility] ([facility])[address] [place], [place] [address]XHTD ACTIVATED CLOTTING TIME UNSOLICITED RESULTSon 01-28-2024 POC ACTIVATED CLOTTING [id number] xnfKsxi48-537HiecfjwutnCleveland Clinic South Pointe Hospital Comment on above:Performed By: #### [id number] ####[facility] ([facility])[address] [place], [place] [address]PSIR GLUCOSE METER UNSOLICITED RESULTSon 01-28-2024 Glucose [Mass/Vol]112 mg/fYHhjx92-758GvfzdhnkboCleveland Clinic South Pointe HospitalComment on above:Order Comment: Waived Testing in the ED is performed under the ED CLIA certificate #[id number].Result Comment: [id number] By: #### [id number] ####[facility] ([facility])[address] [place], [place] [address]Yayaome [Mass/Vol]105 mg/jLVpnhvz04-812ZmkobfdejwCleveland Clinic South Pointe HospitalComment on above:Order Comment: Waived Testing in the ED is performed under the ED CLIA certificate #[id number].Result Comment: iwkgag60Mzclqzvuh By: #### [id number] ####[facility] ([facility])[address] [place], [place] [address]CBQK PERFUSION PANEL UNSOLICITED RESULTSon 33-19-9538OZ9 [Moles/Vol]29.0 mmol/KIevzky95.0-29.0 [facility] HospitalComment on above:Performed By: #### [id number] ####[facility] ([facility])[address] [place], [place] [address]Zqnppyp [Mass/Vol]139 mg/fCMocu22-810PrzjktsuzvCleveland Clinic South Pointe HospitalComment on above:Performed By: #### [id number] ####[facility] ([facility])[address] [place], [place] [address]PUK5 (Bld) [Moles/Vol]27.9 mmol/GMmgknc52.0-28.0UnCleveland Clinic South Pointe HospitalComment on above:Performed By: #### [id number] ####[facility] ([facility])[address] [place] [address]Vawfeiexlr (Bld) [Volume fraction]33 %Nfj80-33WkimvtehwmCleveland Clinic South Pointe HospitalComment on above: Performed By: #### [id number] ####[facility] ([facility])[address] [place] [address]Stongiuktq (Bld) [Mass/Vol]11.2 g/dLLow12.0-17.0UnCleveland Clinic South Pointe HospitalComment on above:Performed By: #### [id number] ####[facility] ([facility])[address] [place] [address]HZNX BASE EXCESS2.0 mmol/LNormal-2.0-3.0UnCleveland Clinic South Pointe HospitalComment on above: Performed By: #### [id number] ####[facility] ([facility])[address] [place] [address]SSHK IONIZED CALCIUM1.22 mmol/LNormal1.12-1.32UnCleveland Clinic South Pointe HospitalComment on above:Performed By: #### [id number] ####[facility] ([facility])[address] [place] [address]ZUHQ JUD671.6 mmHgNormal 41.0-51.0UnCleveland Clinic South Pointe HospitalComment on above:Performed By: #### [id number] ####[facility] ([facility])[address] [place] [address]WQUK PH 7.03Dzrqfy1.31-7.41UnCleveland Clinic South Pointe HospitalComment on above:Performed By: #### [id number] ####[facility] ([facility])[address] [place] [address]LKJU [id number] npSwOykz30-517JklehsscnvCleveland Clinic South Pointe HospitalComment on above:Performed By: #### [id number] ####[facility] ([facility])[address] [place] [address]QMRV SO298 %Omfgeh35-64EaroxobfxsCleveland Clinic South Pointe Hospital Comment on above:Performed By: #### [id number] ####[facility] ([facility])[address] [place] [address]Govelqzbf [Moles/Vol]4.0 mmol/LNormal3.5-4.9 [facility] HospitalComment on above:Performed By: #### [id number] ####[facility] ([facility])[address] [place] [address]Wrtzil [Moles/Vol]142 mmol/DHmgmts152.0-146.0UnCleveland Clinic South Pointe HospitalComment on above:Performed By: #### [id number] ####[facility] ([facility])[address] [place] [address]OLWVTXMPR, WHOLE BLOODon 37-71-9003Puypycztm [Moles/Vol]3.9 mmol/LNormal3.5-5.1UnCleveland Clinic South Pointe HospitalComment on above:Performed By: #### POTASSIUM, WHOLE BLOOD ####[facility] [id number] [place] [address] USAPROTIME-INRon 09-29-6248LRS IN PPP BY COAGULATION ASSAY1.81Loow2.90-1.10UnCleveland Clinic South Pointe HospitalComment on above:Result Comment: ACC RECOMMENDED INR FOR WARFARIN THERAPY CONDITION INRPROPHYLAXIS OF VENOUS THROMBOSIS 2-3(HIGH-RISK SURGERY)TREATMENT OF VENOUS THROMBOSIS 2-3TREATMENT OF PULMONARY EMBOLISM 2-3PREVENTION OF SYSTEMIC EMBOLISM: 2-3 ACUTE MYOCARDIAL INFARCTION TISSUE HEART VALVES VALVULAR HEART DISEASE ATRIAL FIBRILLATION RECURRENT SYSTEMIC EMBOLISMMECHANICAL HEART VALVE 2.5-3.5 FROM: ORAL ANTICOAGULANTS. MECHANISM OF ACTION, CLINICAL EFFECTIVENESS, AND OPTIMAL THERAPE UTIC RANGE. CHEST 1995;108:231S-246S.Performed By: #### [id number] ####[facility] ([facility])[address] [place], [place] [address]TNIJRLKJGIK TIME (PT) IN PPP BY COAGULATION ASSAY14.5 GxzdyjfQnejpi64.3-14.8UnCleveland Clinic South Pointe HospitalComment on above:Performed By: #### [id number] ####[facility] ([facility])[address] [place], [place] [address]BLEXCC, WHOLE BLOODon 01-28-2024 SODIUM, WHOLE [id number]leveland Clinic South Pointe HospitalComment on above:Performed By: #### SODIUM, WHOLE BLOOD ####[facility] [id number] [place] [address] ZCS97te 01-91-106945AggpcxEkyhzvhdih of [facility] Medical CenterAPTTon 12-94-8385QFSZCAPPR PARTIAL THROMBOPLASTIN TIME IN PPP BY COAGULATION ASSAY32.6 RhkyeibPyrpvt24.0-35.0UnCleveland Clinic South Pointe Hospital Comment on above:Result Comment: Clinical significance of the APTT is questionable in the presence of heparin.Performed By: #### [id number] ####[facility] ([facility])[address] [place], [place] [address]HZD WITH AUTO DIFFERENTIALon 04-60-4874Frrstewgy (Bld) [#/Vol]0.03 10*3/uLNormal0.00-0.20 [facility] HospitalComment on above:Performed By: #### [id number] ####[facility] ([facility])[address] [place], [place] [address]Vhsoczgaj/100 WBC (Bld)0.4 %Normal0.0-1.0UnCleveland Clinic South Pointe HospitalComment on above: Performed By: #### [id number] ####[facility] ([facility])[address] [place], [place] [address]Hjatkskusbs (Bld) [#/Vol]0.20 10*3/uLNormal0.00-0.50 [facility] HospitalComment on above:Performed By: #### [id number] ####[facility] ([facility])[address] [place] [address]Iowpndhlrkl/100 WBC (Bld)2.7 %Normal0.0-6.0UnCleveland Clinic South Pointe HospitalComment on above: Performed By: #### [id number] ####[facility] ([facility])[address] [place], [place] [address]Morazsjfcnk distribution width (RBC) [Ratio]15.8 %High 11.5-15.0UnCleveland Clinic South Pointe HospitalComment on above:Performed By: #### [id number] ####[facility] ([facility])[address] [place] [address] ERYTHROCYTE MEAN CORPUSCULAR HEMOGLOBIN CONCENTRATION (G/DL) BY GCYLQUSMH23.0 g/hQYwiasl68.0-35.0UnCleveland Clinic South Pointe HospitalComment on above:Performed By: #### [id number] ####[facility] ([facility])[address] [place], [place] [address]Xascqwyjqb (Bld) [Volume fraction]36.3 %Wjlnki19.0-48.0UnCleveland Clinic South Pointe HospitalComment on above:Performed By: #### [id number] ####[facility] ([facility])[address] [place], [place] [address]Uqgqrnzuej (Bld) [Mass/Vol]11.6 g/dL Low12.0-15.0UnCleveland Clinic South Pointe HospitalComment on above:Performed By: #### [id number] ####[facility] ([facility])[address] [place] [address] Immature granulocytes (Bld) [#/Vol]0.05 10*3/uLNormal0.00-0.20UnCleveland Clinic South Pointe HospitalComment on above:Performed By: #### [id number] ####[facility] ([facility])[address] [place] [address]Tqsxmpor granulocytes/100 WBC (Bld)0.7 %Normal0.0-1.0UnCleveland Clinic South Pointe HospitalComment on above: Performed By: #### [id number] ####[facility] ([facility])[address] [place] [address]Mwcgblvzyql (Bld) [#/Vol]1.81 10*3/uLNormal1.20-4.00 [facility] HospitalComment on above:Performed By: #### [id number] ####[facility] ([facility])[address] [place], [place] [address]Kwozzegmgdb/100 WBC (Bld)24.0 %Dqfvsd24.0-45.0UnCleveland Clinic South Pointe HospitalComment on above:Performed By: #### [id number] ####[facility] ([facility])[address] [place], [place] [address]FYM (RBC) [Entitic mass]28.6 wzCkplbo61.0-33.0UnCleveland Clinic South Pointe HospitalComment on above:Performed By: #### [id number] ####[facility] ([facility])[address] [place], [place] [address]UQG (RBC) [Entitic vol] 89.6 kJMyoehu50.0-98.0UnCleveland Clinic South Pointe HospitalComment on above: Performed By: #### [id number] ####[facility] ([facility])[address] [place], [place] [address]Llslojbxn (Bld) [#/Vol]0.62 10*3/uLNormal0.10-1.00[facility] HospitalComment on above:Performed By: #### [id number] ####[facility] ([facility])[address] [place], [place] [address]Vqkurhvee/100 WBC (Bld) 8.2 %Normal5.0-12.0UnCleveland Clinic South Pointe HospitalComment on above:Performed By: #### [id number] ####[facility] ([facility])[address] [place] [address]Khfeogsustx (Bld) [#/Vol]4.82 10*3/uLNormal1.60-7.60UnCleveland Clinic South Pointe HospitalComment on above:Performed By: #### [id number] ####[facility] ([facility])[address] [place] [address]Pteilkxwwyy/100 WBC (Bld)64.0 %Normal 40.0-72.0UnCleveland Clinic South Pointe HospitalComment on above:Performed By: #### [id number] ####[facility] ([facility])[address] [place] [address]FSYK (PER 100 WBCS) BY AUTOMATED COUNT0.0 %Gnzfet1OnsisahfvmCleveland Clinic South Pointe Hospital Comment on above:Performed By: #### [id number] ####[facility] ([facility])[address] [place] [address]KFGOWOXNH (10*3/UL) IN BLOOD AUTOMATED [id number] 10*3/dCWjxyej820-681EtuhxwfosgCleveland Clinic South Pointe HospitalComment on above: Performed By: #### [id number] ####[facility] ([facility])[address] [place] [address]CYL (Bld) [#/Vol]4.05 10*6/uLNormal3.80-5.00UnCleveland Clinic South Pointe HospitalComment on above:Performed By: #### [id number] ####[facility] ([facility])[address] [place] [address]MDH (Bld) [#/Vol]7.53 10*3/uLNormal4.00-10.60UnCleveland Clinic South Pointe HospitalComment on above: Performed By: #### [id number] ####[facility] ([facility])[address] [place] [address]HBDZILCZXQPAT METABOLIC PANELon 52-31-1003Inarbpk [Mass/Vol] 3.7 g/dLNormal3.5-5.7UnCleveland Clinic South Pointe HospitalComment on above: Performed By: #### [id number] ####[facility] ([facility])[address] [place], [place] [address]AWZ [Catalytic activity/Vol]81 U/OBcljva97-333EjkdpagxotCleveland Clinic South Pointe HospitalComment on above:Performed By: #### [id number] ####[facility] ([facility])[address] [place], [place] [address]SZN [Catalytic activity/Vol]9 U/L Normal7-52UnCleveland Clinic South Pointe HospitalComment on above:Performed By: #### [id number] ####[facility] ([facility])[address] [place], [place] [address]Pkhap gap [Moles/Vol]10 mmol/LNormal7-20UnCleveland Clinic South Pointe HospitalComment on above:Performed By: #### [id number] ####[facility] ([facility])[address] [place], [place] [address]EZM [Catalytic activity/Vol]13 U/ATppxvq79-11SdmrohyjcbCleveland Clinic South Pointe HospitalComment on above:Performed By: #### [id number] ####[facility] ([facility])[address] [place], [place] [address]Bwoyklbdz [Mass/Vol]0.8 mg/dL Normal0.3-1.0UnCleveland Clinic South Pointe HospitalComment on above:Performed By: #### [id number] ####[facility] ([facility])[address] [place] [address] Calcium [Mass/Vol]9.0 mg/dLNormal8.6-10.3UnCleveland Clinic South Pointe Hospital Comment on above:Performed By: #### [id number] ####[facility] ([facility])[address] [place], [place] [address]Xjtzewaf [Moles/Vol]106 mmol/KUiryon18-314 [facility] HospitalComment on above:Performed By: #### [id number] ####[facility] ([facility])[address] [place], [place] [address]SG1 [Moles/Vol] 27 mmol/EFazoly06-75QbzbgsshuqCleveland Clinic South Pointe HospitalComment on above: Performed By: #### [id number] ####[facility] ([facility])[address] [place] [address]Vnlzzjiuum [Mass/Vol]1.14 mg/dLNormal0.60-1.20UnCleveland Clinic South Pointe HospitalComment on above:Performed By: #### [id number] ####[facility] ([facility])[address] [place] [address]DYJVGWORLH FILTRATION RATE ML/MIN/1.73 SQ M.TQOMVVRHD45.7 mL/min/1.73m*2Low>60.0UnCleveland Clinic South Pointe Hospital Comment on above:Result Comment: [facility]???s estimated glomerular filtration rate (eGFR) will [...] anyone group of individuals.Performed By: #### [id number] ####[facility] ([facility])[address] [place] [address]Muyliht [Mass/Vol]88 mg/yAIqtcnh68-779CkstxyqludCleveland Clinic South Pointe HospitalComment on above:Performed By: #### [id number] ####[facility] ([facility])[address] [place], [place] [address]Zmjrdqgml [Moles/Vol]3.8 mmol/LNormal3.5-5.1UnCleveland Clinic South Pointe HospitalComment on above:Performed By: #### [id number] ####[facility] ([facility])[address] [place], [place] [address]Pjgkbyw [Mass/Vol]5.9 g/dLLow 6.0-8.3UnCleveland Clinic South Pointe HospitalComment on above:Performed By: #### [id number] ####[facility] ([facility])[address] [place], [place] [address]Uycwnc [Moles/Vol]139 mmol/LNstxth454-558ZdwxwpjtutCleveland Clinic South Pointe HospitalComment on above:Performed By: #### [id number] ####[facility] ([facility])[address] [place], [place] [address]Kinl nitrogen [Mass/Vol]20 mg/dLNormal7-25UnCleveland Clinic South Pointe HospitalComment on above:Performed By: #### [id number] ####[facility] ([facility])[address] [place], [place] [address]KZPF NITROGEN/CREATININE (MASS RATIO) IN SER/PLAS17.5NormalUniversCleveland Clinic Marymount HospitalComment on above: Performed By: #### [id number] ####[facility] ([facility])[address] [facility] [place], [place] [address]HQRRZTNau 77-20-5794CZAOJKFScomydIepphuofzd of [facility] Medical CenterCT ABDOMEN PELVIS W IV CONTRASTon 35-18-0747CBD ABDOMEN PELVIS W IV CONTRASTNormal [facility] HospitalCT CHEST W IV CONTRASTon 01-68-1186NFC CHEST W IV CONTRASTNormalUniversity Joint venture between [facility] and [facility] Health ResourcesPROVon 03-56-6629XGGKTY NormalUnCleveland Clinic South Pointe HospitalHPon 71-10-5709ZOHsvzusAwreebyofm of [facility] Medical CenterLACTIC ACID WITH 4 HOUR REFLEXon 94-71-4418GGOYPAF (MMOL/L) IN SER/PLAS0.7 mmol/LNormal0.5-2.2UnCleveland Clinic South Pointe HospitalComment on above:Performed By: #### [id number] ####[facility] ([facility])[address] [place], [place] [address]URHQDClh 22-66-2552OKNIMF (U/L) IN SER/PLAS18 U/OPdbtol12-54 [facility] HospitalComment on above:Performed By: #### [id number] ####[facility] ([facility])[address] [place], [place] [address]OTLWNMYYEuv 62-17-8934Faxxiugpf [Mass/Vol]1.9 mg/dLNormal1.9-2.7UnCleveland Clinic South Pointe HospitalComment on above:Performed By: #### [id number] ####[facility] ([facility])[address] [place] [address]EVXF GLUCOSE METER UNSOLICITED RESULTS on 38-85-8558Tknqvwk [Mass/Vol]158 mg/gBBbia52-221TgcfrtvkdrCleveland Clinic South Pointe HospitalComment on above:Order Comment: Waived Testing in the ED is performed under the ED CLIA certificate #[id number].Result Comment: jqjiwdz33Yovmpzftt By: #### [id number] ####[facility] ([facility])[address] [place] [address] Glucose [Mass/Vol]86 mg/vJTvwbsa63-113XqkjfrokscCleveland Clinic South Pointe HospitalComment on above:Order Comment: Waived Testing in the ED is performed under the ED CLIA certificate #[id number].Result Comment: mndqqyd91Dopytkumh By: #### [id number] ####[facility] ([facility])[address] [place] [address]Weicwph [Mass/Vol]99 mg/lYGwdbkp17-015CrllhflqvqCleveland Clinic South Pointe HospitalComment on above:Order Comment: Waived Testing in the ED is performed under the ED CLIA certificate #[id number].Result Comment: kelewqm69Psyrfalws By: #### [id number] ####[facility] ([facility])[address] [place] [address]ZOFILSN-GKGqb 65-09-8773EBQ IN PPP BY COAGULATION ASSAY1.96Eyrk9.90-1.10UnCleveland Clinic South Pointe HospitalComment on above:Result Comment: ACCCP RECOMMENDED INR FOR WARFARIN THERAPY CONDITION INRPROPHYLAXIS OF VENOUS THROMBOSIS 2-3(HIGH-RISK SURGERY)TREATMENT OF VENOUS THROMBOSIS 2-3TREATMENT OF PULMONARY EMBOLISM 2-3PREVENTION OF SYSTEMIC EMBOLISM: 2-3 ACUTE MYOCARDIAL INFARCTION TISSUE HEART VALVES VALVULAR HEART DISEASE ATRIAL FIBRILLATION RECURRENT SYSTEMIC EMBOLISMMECHANICAL HEART VALVE 2.5-3.5 FROM: ORAL ANTICOAGULANTS. MECHANISM OF ACTION, CLINICAL EFFECTIVENESS, AND OPTIMAL THERAPE UTIC RANGE. CHEST 1995;108:231S-246S.Performed By: #### [id number] ####[facility] ([facility])[address], [place] [id number] TIME (PT) IN PPP BY COAGULATION ASSAY14.8 PsganivRnmuuc57.3-14.8UnCleveland Clinic South Pointe HospitalComment on above:Performed By: #### [id number] ####[facility] ([facility])[address], [place] [address]NONQIPCK Ion [id number] I.cardiac [Mass/Vol]0.02 ng/mLNormal0.00-0.04UnCleveland Clinic South Pointe Hospital Comment on above:Performed By: #### [id number] ####[facility] ([facility])[address], [place] [address]AEBV AND SCREENon [id number] SCREENNegativeNormal [facility] Community HospitalComment on above:Performed By: #### [id number] ####[facility],ABO group Nom (Bld)ONormalUnCleveland Clinic South Pointe HospitalComment on above:Performed By: #### [id number] ####[facility],RH TYPE IN BLOODPositiveNormalUniversCleveland Clinic Marymount HospitalComment on above:Performed By: #### [id number] ####[facility],36on [id number] of [place] Medical CenterAlanine aminotransferase [Enzymatic activity/volume] in Serum or PlasmaOrdered By: Anju Lees on 47-60-3404VWW [Catalytic activity/Vol]11 U/L 7-52[facility] HospitalAlbumin [Mass/volume] in Serum or Plasma by Bromocresol green (BCG) dye binding methoOrdered By: Anju Lees on 90-16-0249Vzedjfg BCG dye [Mass/Vol]3.7 g/dL3.5-5.7FLima Memorial HospitalAlkaline phosphatase [Enzymatic activity/volume] in Serum or PlasmaOrdered By: Anju Lees on 03-10-9677JAX [Catalytic activity/Vol]110 U/L34-104 [facility] HospitalAspartate aminotransferase [Enzymatic activity/volume] in Serum or PlasmaOrdered By: Anju Lees on 34-33-5930OES [Catalytic activity/Vol]16 U/Q48-15MehbrawccSt. Vincent HospitalBasophils Auto (Bld) [#/Vol]Ordered By: Anju Lees 79-48-7841Yjccsacfi (Bld) [#/Vol]0.1 10*3/uL0.0-0.2FLima Memorial HospitalBasophils/100 WBC Auto (Bld)Ordered By: Anju Lees 17-20-3505Mavyrptso/100 WBC (Bld)0.6 %. [facility] HospitalBilirubin.total [Mass/volume] in Serum or PlasmaOrdered By: Anju Lees 69-26-2174Whttjzrsx [Mass/Vol]0.5 mg/dL 0.3-1.0[facility] HospitalCalcium [Mass/volume] in Serum or Plasma Ordered By: Anju Lees 99-05-3625Adwraqo [Mass/Vol]9.5 mg/dL8.6-10.3 [facility] HospitalCarbon dioxide, total [Moles/volume] in Serum or PlasmaOrdered By: Anju Lees 83-17-9203HH5 [Moles/Vol]31.9 mmol/L 21.0-31.0[facility] HospitalChloride [Moles/volume] in Serum or PlasmaOrdered By: Anju Lees 72-78-4487Uphpdhhq [Moles/Vol]102 mmol/L 98-107[facility] HospitalCreatinine [Mass/volume] in Serum or PlasmaOrdered By: Anju Lees on 37-51-7373Aronlygafv [Mass/Vol]1.01 mg/dL 0.60-1.20[facility] HospitalEosinophils Auto (Bld) [#/Vol]Ordered By: Anju Lees on 60-81-3048Jpqbmyqhhjb (Bld) [#/Vol]0.3 10*3/uL0.0-0.45 [facility] HospitalEosinophils/100 WBC Auto (Bld)Ordered By: Anju Lees on 49-95-3191Ouzspmuexiu/100 WBC (Bld)3.1 %.[facility] HospitalErythrocyte distribution width Auto (RBC) [Ratio]Ordered By: Anju Lees on 62-87-3235Fgwqpfpkzbo distribution width (RBC) [Ratio]16.3 % 11.9-15.3FLima Memorial HospitalGlobulin Calc (S) [Mass/Vol]Ordered By: Anju Lees on 02-59-2345Thdwivyp (S) [Mass/Vol]2.0 g/dLSt. Vincent HospitalGlucose [Mass/volume] in Serum or PlasmaOrdered By: Anju Lees on 75-40-5509Lrncdhj [Mass/Vol]89 mg/cP20-441HcrbmdzkdSt. Vincent HospitalHematocrit Auto (Bld) [Volume fraction]Ordered By: Anju Lees on 89-63-3674Mxtauinzhe (Bld) [Volume fraction]33.3 %34.0-46.4FLima Memorial HospitalHemoglobin [Mass/volume] in BloodOrdered By: Anju Lees on 85-63-5341Uonwrtbmiu (Bld) [Mass/Vol]11.1 g/dL11.8-15.4FLima Memorial HospitalLeukocytes [#/volume] corrected for nucleated erythrocytes in Blood by Automated counOrdered By: Anju Lees on 56-77-4087MZC corrected for nucl RBC Auto (Bld) [#/Vol]9.1 10*3/uL3.8-11.6FLima Memorial Hospital Lymphocytes Auto (Bld) [#/Vol]Ordered By: Anju Lees on 04-17-2023 Lymphocytes (Bld) [#/Vol]2.1 10*3/uL1.00-4.8[facility] Lymphocytes/100 WBC Auto (Bld)Ordered By: Anju Lees on 04-17-2023 Lymphocytes/100 WBC (Bld)22.7 %.[facility]H Auto (RBC) [Entitic mass]Ordered By: Anju Lees on 47-62-9266EEU (RBC) [Entitic mass] 27.9 pg24.7-34.3FLima Memorial HospitalMCHC Auto (RBC) [Mass/Vol] Ordered By: Anju Lees on 90-49-6475YFMG (RBC) [Mass/Vol]33.4 g/dL32.0-35.0 [facility] HospitalMCV Auto (RBC) [Entitic vol]Ordered By: Anju Lees on 73-92-8488ZEC (RBC) [Entitic vol]83.3 wQ42-574TnlrygshpSt. Vincent HospitalMonocytes Auto (Bld) [#/Vol]Ordered By: Anju Lees on 84-95-0788Fvxbrlatj (Bld) [#/Vol]0.6 10*3/uL0.0-0.8[facility] HospitalMonocytes/100 WBC Auto (Bld)Ordered By: Anju Lees on 04-17-2023 Monocytes/100 WBC (Bld)6.5 %.[facility] HospitalNeutrophils Auto (Bld) [#/Vol]Ordered By: Anju Lees on 42-50-3377Auacpzojmzp (Bld) [#/Vol] 6.1 10*3/uL1.8-7.7FLima Memorial HospitalNeutrophils/100 WBC Auto (Bld)Ordered By: Anju Lees on 06-43-2280Bsxjzaybuhr/100 WBC (Bld)67.1 %. [facility] HospitalNo Panel InformationOrdered By: Anju Lees on 66-41-5499Nyjcqniap GFR (CKD-EPI)56.627 mL/MinFirelands Regional Medical CenterPharmacy Creatinine Clearance (ChemN/AFLima Memorial Hospital Nucleated erythrocytes [Presence] in Blood by Automated countOrdered By: Anju Lees on 10-06-7582Bknfoqwqd RBC Auto Ql (Bld)0.1 /100{WBC}0-0.5FLima Memorial HospitalPlatelet mean volume Auto (Bld) [Entitic vol]Ordered By: Anju Lees on 44-32-5503Jiwjkwwh mean volume (Bld) [Entitic vol]8.7 fL 6.3-10.7FLima Memorial HospitalPlatelets Auto (Bld) [#/Vol]Ordered By: Anju Lees on 50-61-4085Frrxhdatp (Bld) [#/Vol]249 10*3/aE118-556YtiuoowoaSt. Vincent HospitalPotassium [Moles/volume] in Serum or PlasmaOrdered By: Anju Lees on 14-73-3775Fwxdpcswe [Moles/Vol]4.2 mmol/L3.5-5.1FLima Memorial HospitalProtein [Mass/volume] in Serum or PlasmaOrdered By: Anju Lees on 42-07-9119Wwyqkky [Mass/Vol]5.7 g/dL6.4-8.9St[facility] HospitalRBC Auto (Bld) [#/Vol]Ordered By: Anju Lees on 74-63-2497JMU (Bld) [#/Vol]4.00 10*6/uL3.60-5.00[facility] Centererum or plasma albumin/globulin mass ratioOrdered By: Anju Lees on 04-17-2023 Albumin/Globulin [Mass ratio]1.9 {ratio}[facility] Medical Centererum or plasma anion gap determinationOrdered By: Anju Lees on 53-16-5291Tcufk gap [Moles/Vol]10.3 mmol/L6.0-15.0[facility] Medical Centerodium [Moles/volume] in Serum or PlasmaOrdered By: Anju Lees on 16-22-9267Pbatdg [Moles/Vol]140 mmol/G709-696KgxcjgxvcSt. Vincent HospitalUrea nitrogen [Mass/volume] in Serum or PlasmaOrdered By: Anju Lees on 70-72-5433Rthg nitrogen [Mass/Vol]23 mg/dL7-25St. [facility] HospitalWBC Auto (Bld) [#/Vol]Ordered By: Anju Lees on 84-29-3470EQE (Bld) [#/Vol]9.1 10*3/uL 3.8-11.6FLima Memorial HospitalECHOCARDIO M/2D COMPLETEon 05-29-2022 ECHOCARDIO M/2D COMPLETEPatient: SHAYY MAYNARD Exam Date: 05/29/2022 : 1945 Gender:F Ordering : DR VELASQUEZ BUNCH . Admission #: [id number] Family : Order #: [id number] CLICK HERE TO VIEW EXAM ECHOCARDIOGRAM REPORT [...] by: Moises Shore M.D. on 05/30/2022 at 18:32[facility] HospitalMRI BRAIN WO CONon 05-71-1784FSA BRAIN WO CONEXAMINATION: MRI BRAIN WO CON, [...] Electronically authenticated by: RENATA GAYTAN Date: 2022-05-29 13:51[facility] CAROTID ART BILon 10-19-3898JD CAROTID ART BILEXAMINATION: US CAROTID ART JONY [...] Electronically authenticated by: RENATA GAYTAN Date: 2022-05-29 12:55[facility] HospitalCovid-19 PCR (CVDTB)on 30-07-3213LWFM-CoV-2 (COVID-19) RNA ARMIN+probe Ql (Unsp spec)Not detectedNormalNOT DETECTEDThe [facility] Comment on above:Result Comment: This test is not yet approved or cleared by the [place] FDA. When there are no FDA-approved or cleared tests available, and other criteria are met, FDA can make tests available under an emergency access mechanism called an Emergency Use Authorization (EUA). The EUA for this test is supported by the Manager Academic of Health and Human Service's (HHS's) declaration [...] consistent with SARS-CoV-2.Performed By: #### CVDTBH #### [facility] [address] [place] [address] Dr. Samuel KangOzarks Medical Centerulatory Clinical Summaryon 18-45-0551Bfoqkbcpzb Clinical Summary{75-o4-ws-67-03-16-16-ha-1m-ma-45-35-b5-9e-fb-7c}CD:[id number] Memorial HospitalPatient Educationon 84-68-3057Fundewi EducationNutrition Calorie Counting for Weight Loss Calories [...] serving sizes. You could (more content not included)...[facility] HealthUrology Office/Clinic Noteon 85-85-6950Fbfkcss Office/Clinic NoteChief Complaint Pt is here for [...] MD, Jude Farias, URO In 6 months [phone] Additional Instructions: Patient Education Calorie Counting for Weight Loss I, Anastasia Cabral, personally scribed for Dr. Armando on 09/11/2020 [...] Recorded SARS-CoV-2 (COVID-19) mR (more content not included)...[facility] HealthComment on above:Result Comment: Electronically Signed By: Thuan ARMANDO MD\.br\Date and Time Signed: 09/11/20 16:11 EDT\.br\Electronically Co- Signed By: Anastasia Cabral\.br\Date and Time Co-Signed: 09/11/20 16:08 EDT Ambulatory Clinical Summaryon 97-11-9266Hbantoigyb Clinical Summary {33-h2-x4-n1-40-jk-36-99-ot-j8-xo-33-aa-15-31-5f}CD:623384KawqjtEmiuvhGreene Memorial HospitalPatient Educationon 70-25-7987Jybskcj EducationUrology Urinary Incontinence Urinary incontinence refers to [...] ? For women, using a medical office asst to prevent urine leaks. This is a [...] after experiencing incontinence. General instructions ? Take dqug-zga-aehiyfj and prescription medicines only as (more content not included)...[facility] HealthUrology Office/Clinic Noteon 77-12-4551Dzigkzj Office/Clinic NoteChief Complaint 2 week PO This [...] Jude Farias, URO [address] [place] [address]- Additional Instructions: 1mos. f/u Patient Education Urinary [...] with dilation of urethral (more content not included)...[facility] HealthComment on above: Result Comment: Electronically Signed By: Tushar Nunez MD, Jude Farias\.br\Date and Time Signed: 08/08/2110:28 EDT\.br\Electronically Co-Signed By: Kisha Stevens MA\.br\Date and Time Co-Signed: 08/08/20 11:15 EDTOperative Reporton 04-56-5614Oaecasjqy [id number]#1.00CD:[address] [place], [place] [address]Pathology Noteon 18-84-7559Pqwfiawsd Note [id number]#1.00CD:[address] [place], [place] [address]Comment on above:Result Comment: Electronically Signed By: Jude Finley Jr., MD\.br\Date and Time Signed: 08/07/2110:22 EDTECG 12-Leadon 07-06-4473IAF 12-[id number]#1.00CD:[address] [place] [address] Note-Physicianon 24-29-2943UD Note-Physician [id number]#1.00CD:[address] [place], [place] [address]Lab Reportson 98-56-0160Rnm Reports [id number]#1.00CD:[address] [place], [place] [address]Lab [id number]#1.00CD:[address] [place], [place] [address]RAD - MISCon 84-65-6747HFX - MISC [id number]#1.00CD:[address] [place], [place] [address]Insurance Correspondence Officeon 93-21-2352Xqtnpgyzv Correspondence [id number]#1.00CD:[address] [place], [place] [address]Operative Reporton 72-98-1632Ujiwszmwv Report [id number]#1.00CD:127JenniferGreene Memorial HospitalPhysician Orderon 95-20-1581Gdbowsgus Order [id number]#1.00CD:127[facility] HealthPre-Authorization for Medical Treatmenton 07-98-1060Xoc-Authorization for Medical [id number]#1.00CD:127JenniferTriHealth Bethesda Butler HospitalAmbulatory Clinical Summaryon 71-52-8794Pqaswccvdb Clinical Summary{08-vz-33-jm-55-4s-64-07-57-79-02-55-45-4e-56-ed}CD:099978FzsbbfSt. Anthony's HospitalPatient Educationon 48-29-5259Hytwger Education Obstetrics and Gynecology Urethral Vaginal Sling [...] including vitamins, herbs, eye drops, creams, and nhnl-jws-mlfsvuw medicines. ? Any problems you or family [...] diabetes medicines or blood thinners. ? Taking jxjf-thx-crkgiyp medicines, vitamins, herbs, and supplements. ? Taking [...] not intended to r (more content not included)...[facility] HealthUrology Office/Clinic Noteon 49-01-7184Uekdxrt Office/Clinic NoteChief Complaint 3 week follow up This patient is a 75-year-old female with a history of a grade 2 midline cystocele. She is here today to discuss treatment options. She does have some symptoms of stress incontinence. She underwent cystoscopic examination with dilation of her urethra on May 08 2020. [facility] Staff Shayy is a 75 y.o. [...] urine and/or bladder capacity by US- non-imaging 59055 Urnls Dip Stick Auto w/o Microscopy POC 05098 Urology Procedure Order 2. Cystocele with prolapse [...] [facility] [address], [place] [address]- Additional Instructions: Patient Education Urethral Vaginal Sling [...] History of UTI Hypertensio (more content not included)...[facility] Comment on above:Result Comment: Electronically Signed By: Jude Finley Jr., MD\.br\Date and Time Signed: 07/11/2113:49 EDT\.br\Electronically Co-Signed By: Libby Chambers MA\.br\Date and Time Co-Signed: 07/11/20 14:30 EDTAmbulatory Clinical Summaryon 65-79-9045Dpblbxmypj Clinical Summary {l2-02-74-22-y1-7n-2b-50-30-4y-76-9p-3f-aa-b3-7a}CD:951508ZtjoluTdodwp [facility] Educationon 71-68-7396Uwizwvr EducationUrology Urethral Dilation Urethral dilation is a [...] including vitamins, herbs, eye drops, creams, and iyqu-bua-cjvspdg medicines. ? Any problems you or family [...] tells you to take them. ? Taking lsrf-drx-nnyktts medicines, vitamins, herbs, and supplements. General instructions [...] these instructions at home: Medicines ? Take rixr-iny-vvrnded and prescription medicines only as told by [...] to prevent or treat constipation: ? Take mwtc-upd-aktwium or prescription medicines. ? Eat foods that [...] urinate. ? You pa (more content not included)...[facility] HealthUrology Office/Clinic Noteon 89-93-7227Bobsank Office/Clinic NoteChief Complaint Patient is here for [...] Urnls Dip Stick Auto w/o Microscopy POC 62791 I have reviewed the previous health record information and history for this patient from Dr. Finley Follow-up With When Contact Information Tushar Nunez MD, Jude Farias, URO [facility] [address], [place] [address]- Additional Instructions: 2 weeks Patient Education Urethral Dilation Maria Del Carmen Nicolas personally scribed for Dr. Finley on 06/20/2020 14:23:50. . Documentation recorded by the scribeMaria Del Carmen, accurately reflects the services(s) I performedand decisions made by me. Authenticated by Dr. Finley on 06/20/2020 14:34:50. Problem List/Past Medical History Ongoing Arthritis Asthma Bladder infection Bladder outlet obstruction COPD mixed type (more content not included)...[facility] Comment on above:Result Comment: Electronically Signed By: Tushar Nunez MD, Jude Farias\.br\Date and Time Signed: 06/20/2113:36 EDT\.br\Electronically Co-Signed By: Maria Del Carmen Hernandez MA\.br\Date and Time Co-Signed: 06/20/2113:24 EDTCoding Summary. on 82-36-1248Noqvhe Summary. CD:[id number]:4221139HSe0qGy+PGhlYWQ+JL5ASXIxQ91ywEEmpI7TO9wRFI3MQLUBOKRIES6FTI1cz MY3AWxzE2JrxqTu [file] bGxh (more content not included)...NormalFisher Saint Luke Institutesent for Procedure/Surgeryon 29-24-9842Jqljeyq for Procedure/Surgery [id number]#1.00CD:127NormalOhiohealth Doctors HospitalConsent for Treatmenton 74-99-2235Rmmzsii for Treatment [id number]#1.00CD:127NoGreene Memorial HospitalDischarge Instructionson 70-15-1950Xuyadmudb Instructions [id number]#1.00CD:127JenniferGreene Memorial HospitalIntraOperative Documentson 15-03-4821ZkbvqHsedgfqor Documents [id number]#1.00CD:127NoGreene Memorial HospitalMain OR Intraoperative Recordon 38-43-9405Nsbd OR Intraoperative Record IntraOp Document Type FTURO Summary Primary Physician: Jude Finley Jr., MD Finalized Date/Time: 06/15/20 15:02:47 Pt. Name: SHAYY MAYNARD Srinath /Sex: 1945 Female Med Rec #: [id number] Physician: Jude Finley Jr., MD Financial #: [id number] Pt. Type: O Room/Bed: / Admit/Disch: 06/15/20 13:40:05 - Institution: Case Times FTURO Entry 1 Patient Times In Room 06/15/20 14:48:00 Out Room 06/15/20 15:02:00 Procedure Times Start 06/15/20 14:50:00 Stop 06/15/20 14:52:00 Anesthesia Times Last Modified By: Vishal Manuel RN 06/15/20 15:02:42 Case Attendance FTURO Entry 1 Entry 2 Entry 3 Case Attendee Tushar Nunez MD, Jude Herrera SOCIAL SERVICE LIAISON, Pauly Manuel RN, Vishal Douglass Role Performed Surgeon - Primary Scrub - Primary Stained Glass Joiner - Primary Time In 06/15/20 14:48:00 06/15/20 [...] Nunez MD, Jude Farias, Verified (If Participants [facility] HospitalPauly, Applicable) Vishal Manuel RN Time Out [...] Signatures Signed By: Vishal Manuel RN 06/15/20 15:02Park[facility] HealthMain OR Preoperative Recordon 00-99-3977Qaqe OR Preoperative RecordHolding Area Document Type FTURO Summary Primary Physician: Jude Finley Jr., MD Finalized Date/Time: 06/15/20 14:34:27 Pt. Name: ALEXSHAYY/Sex: 1945 Female Med Rec #: [id number] Physician: Jude Finley Jr., MD Financial #: [id number] Pt. Type: O Room/Bed: / Admit/Disch: 06/15/20 [...] Vishal Manuel RN Document Signatures Signed By: Franciscopavan WATER PLANT OPERATORShabana 06/15/20 14:25 Vishal Manuel RN 06/15/20 14:34NormalOhiohealth Doctors HospitalOperative Reporton 27-86-8238Kjsgjjjwr ReportPatient: SHAYY MAYNARD Age: 75 years Sex: [...] planned to make arrangements for repair of cystocele..[facility] HealthComment on above:Result Comment: Electronically Signed By: Jude Finley Jr., MD\.br\Date and Time Signed: 06/15/2113:59 EDTPre-Authorization for Medical Treatmenton 88-51-2147Nwc- Authorization for Medical Treatment [id number]#1.00CD:127NoGreene Memorial HospitalAmbulatory Clinical Summaryon 90-02-4936Kvlotrfrfz Clinical Summary {7x-9u-pj-41-c5-41-06-86-48-29-n0-1o-f2-02-f9-5b}CD:732946XlqlpnSocapkGreene Memorial HospitalPatient Educationon 65-80-4198Cxmoylc EducationUrology Urinary Incontinence Urinary incontinence refers to [...] ? For women, using a medical office asst to prevent urine leaks. This is a [...] after experiencing incontinence. General instructions ? Take wktd-uso-jejdyri and prescription medicines only as (more content not included)...NormalOhiohealth Doctors HospitalUrology Office/Clinic Noteon 03-89-5358Wlnycin Office/Clinic NoteChief Complaint Patient is here for a follow up to [facility] for ball like object HPI Staff Shayy is a 75 y.o. female here for follow up to [place] [facility] for bladder hanging out, patient insists on planning surgery. Previous Dx: bladder infection, bladder outlet obstruction, dysuria, flank pain, gross hematuria, history of UTI, retention of urine, urethral stricture. 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 Patient was seen at [place] [facility] on 06/07/20 for a ball like [...] When Contact Information Jude Finley Jr., MD [phone] Additional Instructions: Patient Education Urinary Incontinence IAnastasia, [...] Flank pain Gross hematuria (more content not included)...[facility] Comment on above:Result Comment: Electronically Signed By: Jude Finley Jr., MD\.br\Date and Time Signed: 06/12/2109:30 EDT\.br\Electronically Co-Signed By: Anastasia Cabral\.br\Date and Time Co-Signed: 06/12/20 10:24 EDTCoding Summary.on 91-02-9753Bfxfpe Summary.CODING DATE: 05/23/2020 FINAL [facility] STATUS: Home (Routine [...] By: Ryann Villegas Date Saved: 05/23/2020 09:34 amNOhioHealth Marion General HospitalConsenton [id number]#1.00CD:127[facility] HealthConmorton county [facility] for Procedure/Surgeryon 03-54-7364Fammwcw for Procedure/[id number]#1.00CD:127[facility] for Treatmenton 22-19-1208Zrtoemu for [id number]#1.00CD:127[facility] for Treatment [id number]#1.00CD:127[facility] HealthDischarge Instructionson 67-37-1945Fhtlwzpsn Instructions [id number]#1.00CD:127[facility] HealthIntraOperative Documentson 65-15-6036HoaseYfxyrcquc Documents [id number]#1.00CD:127Park[facility] HealthMain OR Intraoperative Recordon 82-67-8859Gplc OR Intraoperative Record IntraOp Document Type FTURO Summary Primary Physician: Jude Finley Jr., MD Finalized Date/Time: 05/18/20 14:11:35 Pt. Name: ALEX MARIAMA Cordero/Sex: 1945 Female Med Rec #: [id number] Physician: Jude Finley Jr., MD Financial #: [id number] Pt. Type: O Room/Bed: / Admit/Disch: 05/18/20 [...] MD, Jude Glasgow RN, CNOR, Luz Cormier [facility]LEY HOSPITALVishal Role Performed Surgeon - Primary Stained Glass Joiner - Primary Scrub - Primary Time In 05/18/20 13:57:00 05/18/20 13:57:00 05/18/20 13:57:00 Time Out 05/18/20 14:03:00 05/18/20 14:03:00 05/18/20 14:03:00 Procedure CYSTOSCOPY LOCAL WITH CYSTOSCOPY LOCAL WITH CYSTOSCOPY LOCAL WITH URETHRAL DILATION(.) URETHRAL DILATION(.) URETHRAL DILATION(.) Comments Last Modified By: Myah MELGAR, ETHANORLuz RN, CNOR, Lou Ann Blank RN, ETHANORLuz 05/18/20 14:01:23 05/18/20 14:01:23 05/18/20 14:01:23 Surgical [...] Glasgow RN, Lou Applicable) [facility] CST, Vishal Yo Time [...] 14:02 RYLAND Glasgow RN, Lou Ann 05/18/20 14:11NoGreene Memorial HospitalMain OR Preoperative Recordon 78-71-2169Ywcs OR Preoperative RecordHolding Area Document Type FTURO Summary Primary Physician: Jude Finley Jr., MD Finalized Date/Time: 05/18/20 13:59:17 Pt. Name: MARIAMA MAYNARD Srinath Cordero/Sex: 1945 Female Med Rec #: [id number] Physician: Jude Finley Jr., MD Financial #: [id number] Pt. Type: O Room/Bed: / Admit/Disch: 05/18/20 [...] 13:42 RYLAND Glasgow RN, Lou Ann 05/18/20 13:59NoGreene Memorial HospitalOperative Reporton 54-28-6173Pidtmyeut ReportPatient: MARIAMA MAYNARD Age: 74 years Sex: [...] discharged home with antibiotic coverage, Follow up arranged.[facility] HealthComment on above:Result Comment: Electronically Signed By: Tushar Nunez MD, Jude Farias\.br\Date and Time Signed: 05/18/2113:02 EDTAmbulatory Clinical Summaryon 83-15-4250Nkljmkftcn Clinical Summary{64-t5-2y-44-fv-38-3a-w7-j6-23-2u-75-65-93-fe-5a}CD:794355LuoxjcFaeqxhGreene Memorial HospitalPatient Educationon 83-52-8528Mztseqs EducationUrinary Frequency The number of times a [...] your urinary frequency. Itis (more content not included)...NormalFisher [facility] HospitalUrology Office/Clinic Noteon 24-45-6880Doxejbz Office/Clinic NoteChief Complaint decreased voiding This patient [...] order Local anesthesia. ABX sent to [facility] in [place]. 2. Retention of urine (R33.9: Retention of [...] # 2 cap(s), Refills(s) 0, Pharmacy: [facility]/pharmacy #[id number], 163, cm, 05/11/20 8:31:00 EDT, Height/Length Dosing, 64.2, kg, 05/11/20 8:31:00 EDT, W... Measure Post Void residual urine and/or bladder capacity by US- non-imaging 70752 Urnls Dip Stick Auto w/o Microscopy POC 18531 I have reviewed the previous health record information and history for this pt. from Dr. Finley. Follow-up With When Contact Inf (more content not included)...[facility]view HealthComment on above:Result Comment: Electronically Signed By: Tushar Nunez MD, Jude Farias\.br\Date and Time Signed: 05/11/2109:45 EDT\.br\Electronically Co- Signed By: Kisha Stevens MA\.br\Date and Time Co-Signed: 05/11/20 08:53 EDT Ambulatory Clinical Summaryon 58-35-6770Vmxakwzpam Clinical Summary {9o-s3-44-92-8t-gg-25-6m-uy-h0-h5-x2-e5-33-f1-71}CD:886061OphqntSzvxgoGreene Memorial HospitalPatient Educationon 18-29-4679Crzkrkb EducationObstetrics and Gynecology Acute Urinary Retention, Female [...] lead to aurinary tract infection. Only take yxqh-wwr-yptlnaz or prescription medicines for pain, discomfort, or fever as directed by your caregiver. SEEK IMMEDIATE MEDICAL CARE IF: You develop chills, fever, or show signs of generalized illness that occurs prior to seeing your caregiver. Document Released: 02/09/2007 Document Revised: 05/04/2012 Document Reviewed: 01/12/2010 ExitCare? Patient Information ?2013 YPlan.[facility] HealthUrology Office/Clinic Noteon 18-00-9991Asxbzds Office/Clinic NoteChief Complaint f/u to cysto UD This patient is a 74-year-old female with a history of gross hematuria and urinary tract infection.She had a recent cystoscopic examination that showed no evidence of malignancy. She was treated by her primary care physician for another urinary tract infection. [facility] Staff Pt is here for f/u [...] Urnls Dip Stick Auto w/o Microscopy POC 33479 3. Dysuria (R30.0: Dysuria) Mild burning w/ urination. I have reviewed the previous health record information and history for this pt. from Dr. Finley. Follow-up With When Contact Information Jude Finley Jr., MD [address] [place] [id number]- Additional Instructions: 1mos. w/ pVR Patient Education [...] furosemide 20 mg T (more content not included)...Parkview HealthComment on above:Result Comment: Electronically Signed By: Jude Finley Jr., MD\.br\Date and Time Signed: 01/04/2012:26 EST\.br\Electronically Co- Signed By: Kisha Stevens MA\.br\Date and Time Co-Signed: 01/04/20 12:01 EST Operative Reporton [id number] Report [id number]:127NoGreene Memorial HospitalCult,Bloodon [id number],BloodSpecimen Description .BLOOD Special Requests 3ML LT A.C. Culture NO GROWTH 6 DAYS Report Status FINAL 10/18/2019NoFlower HospitalComment on above:Performed By: #### CDP, CP, LIP, TROPI, LIPRF, GLYHGB #### [employer] [address] [place] [phone] Sign Writer Hand: Carlo Mcmanus,BloodSpecimen Description .BLOOD Special Requests back lt arm 3ml Culture NO GROWTH 6 DAYS Report Status FINAL 10/18/2019NoFlower HospitalComment on above:Performed By: #### CDP, CP, LIP, TROPI, LIPRF, GLYHGB #### [employer] [address] [place] [address] [phone] Sign Writer Hand: Carlo Mcmanus,Urineon [id number],UrineSpecimen Description .CLEAN CATCH URINE Special Requests NOT REPORTED Culture STAPHYLOCOCCUS SPECIES, COAGULASE NEGATIVE >[id number] CFU/ML Report Status FINAL 10/17/2019 SUSCEPTIBILITY Organism [...] NOT REPORTED Trimethoprim/Sulfa 20 SUSCEPTIBLE Vancomycin 1 SUSCEPTIBLENoFlower HospitalComment on above: Performed By: #### KRIS, CP, LIP, TROPI, LIPRF, GLYHGB #### [employer] [address] [place] [address] [phone] Sign Writer Hand: Josh Mcmanus Metab w/rfx MGon 10-16-2019(cont.)Normal [facility] Berger HospitalComment on above:Result Comment: Average GFR for 70 or more years old: 75 mL/min/1.73sq m Chronic Kidney Disease: <60 mL/min/1.73sq m Kidney failure: <15 mL/min/1.73sq m eGFR calculated using average adult body mass. Additional eGFR calculator available at: http://www.[employer].com/multiple_crcl_2012.htmPerformed By: #### CDP, CP, LIP, TROPI, LIPRF, GLYHGB #### [facility] [address] [place] [phone] Sign Writer Hand: Brandon Anaya MDAnion gap [Moles/Vol]13 mmol/LNormal9-17Ohio[facility] Berger HospitalComment on above:Performed By: #### CDP, CP, LIP, TROPI, LIPRF, GLYHGB #### [facility] [address] [place] [phone] Sign Writer Hand: Brandon Anaya MDCalcium [Mass/Vol]8.6 mg/dLNormal8.6-10.4Ohio[facility] Berger HospitalComment on above:Performed By: #### CDP, CP, LIP, TROPI, LIPRF, GLYHGB #### [facility] [address] [place] [address] [phone] Sign Writer Hand: Brandon Anaya MDChloride [Moles/Vol]97 mmol/KXdx27-381PfvxlOhiohealth Berger HospitalComment on above:Performed By: #### CDP, CP, LIP, TROPI, LIPRF, GLYHGB #### [facility] [address] [place] [address] [phone] Sign Writer Hand: Brandon Anaya MDCO2 [Moles/Vol]25 mmol/YDgisfq31-68PfvyrOhiohealth Berger HospitalComment on above:Performed By: #### CDP, CP, LIP, TROPI, LIPRF, GLYHGB #### [facility] [address] [place] [address] [phone] Sign Writer Hand: Brandon Anaya MDCreatinine [Mass/Vol]0.42 mg/dLLow0.50-0.90Ohio[facility] Berger HospitalComment on above:Performed By: #### CDP, CP, LIP, TROPI, LIPRF, GLYHGB #### [facility] [address] [place] [address] [phone] Sign Writer Hand: Brandon Anaya MDGFR, Amer>60Normal>60MerSaint Agnes Medical CenterComment on above:Performed By: #### CDP, CP, LIP, TROPI, LIPRF, GLYHGB #### [address] [phone] Sign Writer Hand: Brandon Anaya MDGFR,non Amer>60Normal>60MerSaint Agnes Medical CenterComment on above:Performed By: #### CDP, CP, LIP, TROPI, LIPRF, GLYHGB #### [address] [address] Sign Writer Hand: Brandon Anaya MDGlucose [Mass/Vol]87 mg/wZExghvd39-55AuemmWashington HospitalComment on above:Performed By: #### CDP, CP, LIP, TROPI, LIPRF, GLYHGB #### [address] [phone] Sign Writer Hand: BLADIMIR Mcmanusotassium [Moles/Vol]3.7 mmol/LNormal3.7-5.3 [facility] Berger HospitalComment on above:Performed By: #### CDP, CP, LIP, TROPI, LIPRF, GLYHGB #### [address] [address] Sign Writer Hand: FABIANA Mcmanusodium [Moles/Vol]135 mmol/IUyyaim268-002OmgdjOhiohealth Berger HospitalComment on above:Performed By: #### CDP, CP, LIP, TROPI, LIPRF, GLYHGB #### [facility] [address] [place] [address] [phone] Sign Writer Hand: Brandon Anaya MDUrea nitrogen [Mass/Vol]14 mg/dLNormal8-23Ohio[facility] Berger HospitalComment on above:Performed By: #### CDP, CP, LIP, TROPI, LIPRF, GLYHGB #### [facility] [address] [place], [place] [phone] Sign Writer Hand: RADHA Mcmanus/CRE RatioNOT REPORTEDNormal11-13Ohio[facility] Berger HospitalComment on above:Performed By: #### CDP, CP, LIP, TROPI, LIPRF, GLYHGB #### [facility] [address] [place], [place] [phone] Sign Writer Hand: FABIANA Mcmanustaging:NOT REPORTEDNormalOhiohealth Berger HospitalComment on above:Performed By: #### CDP, CP, LIP, TROPI, LIPRF, GLYHGB #### [facility] [address] [place], [place] [phone] Sign Writer Hand: Josh Mcmanus Metabolic Panel w/ Reflex to MGon 19-19-0510Lesbd gap [Moles/Vol]13 mmol/L9 - 17 mmol/LMSumma Health Wadsworth - Rittman [facility], KYBun/Cre RatioNOT REPORTEDMount St. Mary Hospital, KYCalcium [Mass/Vol]8.6 mg/dL8.6 - 10.4 mg/dLMount St. Mary Hospital, KYChloride [Moles/Vol]97 mmol/LLow98 - 107 mmol/[facility], KYCO2 [Moles/Vol]25 mmol/L20 - 31 mmol/LMSumma Health Wadsworth - Rittman [facility], [place] Creatinine [Mass/Vol]0.42 mg/dLLow0.5 - 0.9 mg/dLMount St. Mary Hospital, KYGFR >60>60 mL/minMount St. Mary Hospital, KYGFR Non->60>60 mL/min [facility], KYGFR/1.73 sq M predicted among non-blacks MDRD (S/P/Bld) [Vol rate/Area][facility], KYComment on above:Average GFR for 70 or more years old: 75 mL/min/1.73sq m Chronic Kidney Disease: <60 mL/min/1.73sq m Kidney failure: <15 mL/min/1.73sq m eGFR calculated using average adult body mass. Additional eGFR calculator available at: http://www.[employer]/multiple_crcl_2012.htm GFR/1.73 sq M predicted among non-blacks MDRD (S/P/Bld) [Vol rate/Area]NOT REPORTEDSelect Medical [facility] [place], KYGlucose [Mass/Vol]87 mg/dL70 - 99 mg/dLSelect Medical [facility], [place], KYInterpretation and review of laboratory resultsAbnormalSelect Medical [facility], [place], KYPotassium [Moles/Vol]3.7 mmol/L3.7 - 5.3 mmol/LMmercy health [facility] Health- [place], KYSodium [Moles/Vol]135 mmol/L135 - 144 mmol/LMaultman orrville hospitaly Health- [place], KYUrea nitrogen [Mass/Vol]14 mg/dL8 - 23 mg/dLUc Health [place], KYCBC auto differentialon [id number] (Bld) [#/Vol]0.04 10*3/uLSelect Medical [facility], [place], KYBasophils/100 WBC (Bld)0 %0 - 2 %[facility], KYDifferential TypeNOT REPORTEDSelect [facility], [place], KYEosinophils (Bld) [#/Vol]0.10 10*3/uLSelect Medical [facility], [place], [place] Eosinophils/100 WBC (Bld)1 %1 - 4 %[facility] [place], KYErythrocyte distribution width (RBC) [Ratio]14.6 %High11.8 - 14.4 %[facility] [place], KYHematocrit (Bld) [Volume fraction]40.2 %36.3 - 47.1 %[facility] [place], KYHemoglobin (Bld) [Mass/Vol]12.6 g/dL11.9 - 15.1 g/dLSelect Medical [facility], [place], KYImmature granulocytes (Bld) [#/Vol]0.08 10*3/uLSelect Medical [facility], [place], KYImmature granulocytes (Bld) [#/Vol] 1 %Vush4BiqlgSelect Medical [facility] Clinic [facility], [place], KYInterpretation and review of laboratory results AbnormalSelect Medical [facility], [place], KYLymphocytes (Bld) [#/Vol]3.05 10*3/[facility], MELymphocytes/100 WBC (Bld)32 %24 - 43 %[place], KYMCH (RBC) [Entitic mass]29.0 pg25.2 - 33.5 pgMillheim, KYMCHC (RBC) [Mass/Vol]31.3 g/dL28.4 - 34.8 g/dLMillheim, KYMCV (RBC) [Entitic vol]92.4 fL82.6 - 102.9 fLMillheim, KYMonocytes (Bld) [#/Vol]0.76 10*3/[facility], MEMonocytes/100 WBC (Bld)8 %3 - 12 %[place], KYPlatelet mean volume (Bld) [Entitic vol]10.6 fL8.1 - 13.5 fLMillheim, KYPlatelets (Bld) [#/Vol]216 10*3/uLMillheim, KYPlatelets (Bld) [#/Vol]NOT REPORTEDMillheim, KYRBC (Bld) [#/Vol]4.35 10*6/uL3.95 - 5.11 m/[facility], [place] RBC morphology finding Nom (Bld)ANISOCYTOSIS PRESENTMillheim, [place] Segmented neutrophils/100 WBC (Bld)58 %36 - 65 %[place], KYSegs Absolute5.61[place], KYWBC (Bld) [#/Vol]9.6 10*3/uLMillheim, [place] WBC (Bld) [#/Vol]0.0 10*3/uL0.[address] [facility] Hospital, MEWBC MorphologyNOT REPORTEDMillheim, KYCB with Diffon 15-12-0800Kab. Basophil0.04 k/uL Normal0.00-0.20[facility] Berger HospitalComment on above:Performed By: #### CDP, CP, LIP, TROPI, LIPRF, GLYHGB #### [employer] [address] [place] [address] Sign Writer Hand: MDAbs. MariettaImm.Granulocyte0.08 k/uLNormal0.00-0.30Ohio[facility] Berger HospitalComment on above:Performed By: #### CDP, CP, LIP, TROPI, LIPRF, GLYHGB #### [address] [phone] Sign Writer Hand: MDAbs. MariettaNeutrophil (Seg)5.61 k/uLNormal1.50-8.10 [facility] Berger HospitalComment on above:Performed By: #### CDP, CP, LIP, TROPI, LIPRF, GLYHGB #### [address] [phone] Sign Writer Hand: Brandon Anaya MDBasophils/100 WBC (Bld)0 %Normal0-2MWashington HospitalComment on above:Performed By: #### CDP, CP, LIP, TROPI, LIPRF, GLYHGB #### [address] [phone] Sign Writer Hand: Brandon Anaya MDEosinophils (Bld) [#/Vol]0.10 10*3/uLNormal 0.00-0.44Ohio[facility] Berger HospitalComment on above:Performed By: #### CDP, CP, LIP, TROPI, LIPRF, GLYHGB #### [address] [phone] Sign Writer Hand: MAU Mcmanusosinophils/100 WBC (Bld)1 %Normal1-4Ohio[facility] Berger HospitalComment on above:Performed By: #### CDP, CP, LIP, TROPI, LIPRF, GLYHGB #### [address] [address] Sign Writer Hand: Brandon Anaya MDErythrocyte distribution width (RBC) [Ratio]14.6 %High11.8-14.4Ohio[facility] Berger HospitalComment on above:Performed By: #### CDP, CP, LIP, TROPI, LIPRF, GLYHGB #### [facility] [address] [place] [phone] Sign Writer Hand: Brandon Anaya MDHematocrit (Bld) [Volume fraction]40.2 %Normal 36.3-47.1MWashington HospitalComment on above:Performed By: #### CDP, CP, LIP, TROPI, LIPRF, GLYHGB #### [facility] [address] [place] [address] [phone] Sign Writer Hand: Brandon Anaya MDHemoglobin (Bld) [Mass/Vol]12.6 g/dLNormal 11.9-15.1MWashington HospitalComment on above:Performed By: #### CDP, CP, LIP, TROPI, LIPRF, GLYHGB #### [facility] [address] [place] [address] Sign Writer Hand: Brandon Anaya MDImmature granulocytes (Bld) [#/Vol]1 %Bkqe8YlpngOhiohealth Berger HospitalComment on above:Performed By: #### CDP, CP, LIP, TROPI, LIPRF, GLYHGB #### [facility] [address] [place] [address] Sign Writer Hand: Brandon Anaya MDLymphocytes (Bld) [#/Vol]3.05 10*3/uLNormal 1.10-3.70Ohio[facility] Berger HospitalComment on above:Performed By: #### CDP, CP, LIP, TROPI, LIPRF, GLYHGB #### [facility] [address] [place] [phone] Sign Writer Hand: Kortney Mcmanusmphocytes/100 WBC (Bld)32 %Ekyxiq41-30CmdnnOhiohealth Berger HospitalComment on above:Performed By: #### CDP, CP, LIP, TROPI, LIPRF, GLYHGB #### [facility] [address] [place] [phone] Sign Writer Hand: LIZZY McmanusCH (RBC) [Entitic mass]29.0 nlRyjbkp76.2-33.5 [facility] HospitalComment on above:Performed By: #### CDP, CP, LIP, TROPI, LIPRF, GLYHGB #### [facility] [address] [place] [phone] Sign Writer Hand: LIZZY McmanusCHC (RBC) [Mass/Vol]31.3 g/dPMnfbjr87.4-34.8 [facility] HospitalComment on above:Performed By: #### CDP, CP, LIP, TROPI, LIPRF, GLYHGB #### [facility] [address] [place] [phone] Sign Writer Hand: LIZZY McmanusCV (RBC) [Entitic vol]92.4 uWOqonbk98.6-102.9 [facility] HospitalComment on above:Performed By: #### CDP, CP, LIP, TROPI, LIPRF, GLYHGB #### [facility] [address] [place] [phone] Sign Writer Hand: Brandon Anaya MDMonocytes (Bld) [#/Vol]0.76 10*3/uLNormal 0.10-1.20[facility] Berger HospitalComment on above:Performed By: #### CDP, CP, LIP, TROPI, LIPRF, GLYHGB #### [facility] [address] [place] [phone] Sign Writer Hand: LIZZY Mcmanusonocytes/100 WBC (Bld)8 %Normal3-12Ohio[facility] Berger HospitalComment on above:Performed By: #### CDP, CP, LIP, TROPI, LIPRF, GLYHGB #### [facility] [address] [place] [phone] Sign Writer Hand: Brandon Anaya MDNeutrophil (Seg)58 %Mlkoqi24-22IgcmbOhiohealth Berger HospitalComment on above:Performed By: #### CDP, CP, LIP, TROPI, LIPRF, GLYHGB #### [facility] [address] [place] [phone] Sign Writer Hand: Brandon Anaya MDNRBC Automated0.0 per 100 WBCNormal0.0Ohio[facility] Berger HospitalComment on above:Performed By: #### CDP, CP, LIP, TROPI, LIPRF, GLYHGB #### [facility] [address] [place] [phone] Sign Writer Hand: Nadeem Mcmanus mean volume (Bld) [Entitic vol]10.6 fL Normal8.1-13.5Ohio[facility] Berger HospitalComment on above:Performed By: #### CDP, CP, LIP, TROPI, LIPRF, GLYHGB #### [facility] [address] [place] [phone] Sign Writer Hand: Geremias Mcmanustemariluz (Bld) [#/Vol]216 10*3/zLYangfo511-901 [facility] HospitalComment on above:Performed By: #### CDP, CP, LIP, TROPI, LIPRF, GLYHGB #### [facility] [address] [place] [phone] Sign Writer Hand: DREW McmanusBC (Bld) [#/Vol]4.35 10*6/uLNormal3.95-5.11 [facility] Berger HospitalComment on above:Performed By: #### CDP, CP, LIP, TROPI, LIPRF, GLYHGB #### [facility] [address] [place] [phone] Sign Writer Hand: RICHA Mcmanus morphology finding Nom (Bld)ANISOCYTOSIS PRESENTNormalOhiohealth Berger HospitalComment on above:Performed By: #### CDP, CP, LIP, TROPI, LIPRF, GLYHGB #### [facility] [place] [address] Sign Writer Hand: LUCIAN Mcmanus ([facility]) [#/Vol]9.6 10*3/uLNormal3.5-11.3Mercy Herrick CampusComment on above:Performed By: #### CDP, CP, LIP, TROPI, LIPRF, GLYHGB #### [facility] [address] [place] [phone] Sign Writer Hand: Gustabo Mcmanus PerformedNOT REPORTEDOhioHealth O'Bleness HospitalComment on above:Performed By: #### CDP, CP, LIP, TROPI, LIPRF, GLYHGB #### [employer] [address] [place] [phone] Sign Writer Hand: Bon Mcmanus ([facility]) [#/Vol]NOT REPORTEDNormalOhiohealth Berger HospitalComment on above:Performed By: #### CDP, CP, LIP, TROPI, LIPRF, GLYHGB #### [facility] [address] [place] [phone] Sign Writer Hand: LUCIAN Mcmanus MorphologyNOT REPORTEDOhioHealth O'Bleness HospitalComment on above:Performed By: #### CDP, CP, LIP, TROPI, LIPRF, GLYHGB #### [facility] [address] [place] [phone] Sign Writer Hand: WENDY Mcmanus LUMBAR SPINE W WO CONTRASTon [id number] LUMBAR SPINE W WO CONTRASTEXAMINATION: MRI OF [...] Signed by: Ryan Lindsay MD 10/15/19 Final resultNormalMercy ValleyCare Medical Center Glucose Fingerstickon 69-69-4027Gixexie [Mass/Vol]98 mg/dL65 - 105 mg/dLMercy Health- [place], KYGlucose [Mass/Vol]107 mg/qZVwlb70 - 105 mg/dLMercy Health- [place], KYInterpretation and review of laboratory resultsAbnormalMercy Health- [place], KYGlucose [Mass/Vol]81 mg/dL65 - 105 mg/dLMercy Health- [place], KYURINALYSIS WITH MICROSCOPICon 10-16-2019 Amorphous, UANOT REPORTEDNoneMercy Health- [place], KYBacteria, UAMODERATEAbnormal NoneMercy Health- [place], [...] UA NOT REPORTED0 /HPFMercy Health- [place], KYSpecific [place], UA1.006[facility]- [place], KYTrichomonas, UANOT REPORTEDNoneMercy Health- [place], KYTurbidity UACLOUDYAbnormal CLEARMercy Health- [place], KYUrine HgbNegativeNEGATIVEMercy Health- [place], [place] Urobilinogen, UrineNormalNormalMercy Health- [place], KYWBC, UA0 TO 2[facility]- [place], KYYeast, UANOT REPORTEDNoneMercy Health- [place], [place]-[facility] [place], [place] Urinalysis w/ Microon 10-16-2019-----NormalOhiohealthcy Herrick Campus Comment on above:Performed By: #### CDP, CP, LIP, TROPI, LIPRF, GLYHGB #### [address] [phone] Sign Writer Hand: Brandon Anaya MDAcetoacetic Acid,UrSMALLAbnormalNEGOhiohealth Berger HospitalComment on above:Performed By: #### CDP, CP, LIP, TROPI, LIPRF, GLYHGB #### [address] [address] Sign Writer Hand: Rita Mcmanus LM.HPF (Urine sed) [#/Area]MODERATE AbnormalProMedica Flower HospitalComment on above:Performed By: #### CDP, CP, LIP, TROPI, LIPRF, GLYHGB #### [address] [address] Sign Writer Hand: Brandon Anaya MDBilirubin, SemiQt,UrNegativeNormalNEGOhiohealth Berger HospitalComment on above:Performed By: #### CDP, CP, LIP, TROPI, LIPRF, GLYHGB #### [address] [phone] Sign Writer Hand: Maria Elena Mcmanus LM.LPF (Urine sed) [#/Area]0 TO 2 HYALINE Normal0-8Ohio[facility] Berger HospitalComment on above:Result Comment: Reference range defined for non-centrifuged specimen.Performed By: #### CDP, CP, LIP, TROPI, LIPRF, GLYHGB #### [address] [phone] Sign Writer Hand: NEHAL Mcmanusolor (U)YELLOWNormalYELMerSaint Agnes Medical CenterComment on above:Performed By: #### CDP, CP, LIP, TROPI, LIPRF, GLYHGB #### [facility] [address] [place] [phone] Sign Writer Hand: Brandon Anaya MDEpithelial cells LM.HPF (Urine sed) [#/Area]0 TO 0Hpnjls2-5JnnwsOhiohealth Berger HospitalComment on above:Performed By: #### CDP, CP, LIP, TROPI, LIPRF, GLYHGB #### [place] [address] Sign Writer Hand: Brandon Anaya MDGlucose Ql (U)NegativeNormalNEGOhiohealth Berger HospitalComment on above:Performed By: #### CDP, CP, LIP, TROPI, LIPRF, GLYHGB #### [place] [address] Sign Writer Hand: Brandon Anaya MDHemoglobin, UrNegativeBig LaurelNEGOhiohealth Berger HospitalComment on above:Performed By: #### CDP, CP, LIP, TROPI, LIPRF, GLYHGB #### [place] [address] Sign Writer Hand: Brandon Anaya MDLeukocyte esterase Test strip Ql (U)Negative NormalNEGOhiohealth Berger HospitalComment on above:Performed By: #### CDP, CP, LIP, TROPI, LIPRF, GLYHGB #### [facility] [address] [place] [phone] Sign Writer Hand: Brandon Anaya MDNitrite,UrNegativeNormalNEGOhiohealth Berger HospitalComment on above:Performed By: #### CDP, CP, LIP, TROPI, LIPRF, GLYHGB #### [facility] [address] [place] [phone] Sign Writer Hand: Brandon Anaya [facility] (U)8.0 [pH]Normal5.0-8.0Ohio[facility] Berger HospitalComment on above:Performed By: #### CDP, CP, LIP, TROPI, LIPRF, GLYHGB #### [facility] [address] [place] [phone] Sign Writer Hand: BLADIMIR Mcmanusrotein Ql (U)NegativeNormalNEGOhiohealth Berger HospitalComment on above:Performed By: #### CDP, CP, LIP, TROPI, LIPRF, GLYHGB #### [facility] [address] [place] [phone] Sign Writer Hand: DREW McmanusBC (U) [#/Vol]2 TO 5Ydlpqx0-3FwewxOhiohealth Berger HospitalComment on above:Result Comment: Reference range defined for non- centrifuged specimen.Performed By: #### CDP, CP, LIP, TROPI, LIPRF, GLYHGB #### [facility] [address] [place] [phone] Sign Writer Hand: FABIANA Mcmanuspecific gravity (U) [Rel density]1.006Normal 1.005-1.030Ohio[facility] Berger HospitalComment on above:Performed By: #### CDP, CP, LIP, TROPI, LIPRF, GLYHGB #### [facility] [address] [place] [phone] Sign Writer Hand: GODWIN McmanusurbidityCLOUDYAbnoalCLEAROhiohealth Berger HospitalComment on above:Performed By: #### CDP, CP, LIP, TROPI, LIPRF, GLYHGB #### [facility] [address] [place] [phone] Sign Writer Hand: Jackie Mcmanus,UrNormalNormalMercy Health Springfield Regional Medical CenterComment on above:Performed By: #### CDP, CP, LIP, TROPI, LIPRF, GLYHGB #### [facility] [address] [place] [phone] Sign Writer Hand: TAMMY McmanusBC (U) [#/Vol]0 TO 2Brbktl6-8Kpvbe Herrick CampusComment on above:Performed By: #### CDP, CP, LIP, TROPI, LIPRF, GLYHGB #### [facility] [address] [place] [phone] Sign Writer Hand: Iwona Mcmanus sediment LM Ql (Urine sed)NOT REPORTED NormalNONEMercy Herrick CampusComment on above:Performed By: #### CDP, CP, LIP, TROPI, LIPRF, GLYHGB #### [facility] [address] [place] [phone] Sign Writer Hand: Andrew Mcmanus LM Nom (Urine sed)NOT REPORTEDNormal NONEMerSaint Agnes Medical CenterComment on above:Performed By: #### CDP, CP, LIP, TROPI, LIPRF, GLYHGB #### [facility] [address] [place] [phone] Sign Writer Hand: Brandon Anaya MDEpithelial, RenalNOT LVYSDGXCFrsrzc6XwpqxOhiohealth Berger HospitalComment on above:Performed By: #### CDP, CP, LIP, TROPI, LIPRF, GLYHGB #### [facility] [address] [place] [phone] Sign Writer Hand: LIZZY Mcmanusucus StrandsNOT REPORTEDNormalNONEMercVencor HospitalComment on above:Performed By: #### CDP, CP, LIP, TROPI, LIPRF, GLYHGB #### [facility] [address] [place] [phone] Sign Writer Hand: Montana Mcmanus ObservationsNOT REPORTEDNormalNREQOhiohealth Berger HospitalComment on above:Performed By: #### CDP, CP, LIP, TROPI, LIPRF, GLYHGB #### [facility] [address] [place] [phone] Sign Writer Hand: Marissa McmanusonasNOT REPORTEDNormalNONEMercVencor HospitalComment on above:Performed By: #### CDP, CP, LIP, TROPI, LIPRF, GLYHGB #### [facility] [place], [place] [phone] Sign Writer Hand: Donna Mcmanus LM Ql (Urine sed)NOT REPORTEDNormalNONE [facility] HospitalComment on above:Performed By: #### CDP, CP, LIP, TROPI, LIPRF, GLYHGB #### [facility] [address] [place] [phone] Sign Writer Hand: Josh Mcmanus Metab w/rfx MGon 10-15-2019(cont.)Normal [facility] Berger HospitalComment on above:Result Comment: Average GFR for 70 or more years old: 75 mL/min/1.73sq m Chronic Kidney Disease: <60 mL/min/1.73sq m Kidney failure: <15 mL/min/1.73sq m eGFR calculated using average adult body mass. Additional eGFR calculator available at: http://www.[employer]/multiple_crcl_2012.htmPerformed By: #### CDP, CP, LIP, TROPI, LIPRF, GLYHGB #### [employer] [address] [place] [phone] Sign Writer Hand: Brandon Anaya MDAniana gap [Moles/Vol]14 mmol/LNormal9-17Ohio[facility] Berger HospitalComment on above:Performed By: #### CDP, CP, LIP, TROPI, LIPRF, GLYHGB #### [employer] [address] [place] [phone] Sign Writer Hand: Brandon Anaya MDCalcium [Mass/Vol]8.8 mg/dLNormal8.6-10.4Ohio[facility] Berger HospitalComment on above:Performed By: #### CDP, CP, LIP, TROPI, LIPRF, GLYHGB #### [address] [address] Sign Writer Hand: NEHAL Mcmanushloride [Moles/Vol]94 mmol/ZHpu31-065JyymcOhiohealth Berger HospitalComment on above:Performed By: #### CDP, CP, LIP, TROPI, LIPRF, GLYHGB #### [address] [phone] Sign Writer Hand: Brandon nAaya MDCO2 [Moles/Vol]23 mmol/BFhjvzo47-53LpmsrOhiohealth Berger HospitalComment on above:Performed By: #### CDP, CP, LIP, TROPI, LIPRF, GLYHGB #### [address] [address] Sign Writer Hand: NEHAL Mcmanusreatinine [Mass/Vol]0.36 mg/dLLow0.50-0.90Ohio[facility] Berger HospitalComment on above:Performed By: #### CDP, CP, LIP, TROPI, LIPRF, GLYHGB #### [address] [phone] Sign Writer Hand: Brandon Anaya MDGFR, Amer>60Normal>60Ohio[facility] Berger HospitalComment on above:Performed By: #### CDP, CP, LIP, TROPI, LIPRF, GLYHGB #### [address] [address] Sign Writer Hand: Brandon Anaya MDGFR,non Amer>60Normal>60[facility] Berger HospitalComment on above:Performed By: #### CDP, CP, LIP, TROPI, LIPRF, GLYHGB #### [facility] [address] [place] [phone] Sign Writer Hand: Brandon Anaya MDGlucose [Mass/Vol]89 mg/dQDybtjv02-48FxqpgWashington HospitalComment on above:Performed By: #### CDP, CP, LIP, TROPI, LIPRF, GLYHGB #### [facility] [address] [place] [address] [phone] Sign Writer Hand: BLADIMIR Mcmanusotassium [Moles/Vol]3.7 mmol/LNormal3.7-5.3 [facility] HospitalComment on above:Performed By: #### CDP, CP, LIP, TROPI, LIPRF, GLYHGB #### [facility] [address] [place] [address] [phone] Sign Writer Hand: FABIANA Mcmanusodium [Moles/Vol]131 mmol/JBiq481-608VjzsbOhiohealth Berger HospitalComment on above:Performed By: #### CDP, CP, LIP, TROPI, LIPRF, GLYHGB #### [facility] [address] [place] [address] [phone] Sign Writer Hand: Rebecca Mcmanus nitrogen [Mass/Vol]16 mg/dLNormal8-23Ohio[facility] Berger HospitalComment on above:Performed By: #### CDP, CP, LIP, TROPI, LIPRF, GLYHGB #### [facility] [address] [place] [address] [phone] Sign Writer Hand: RADHA Mcmanus/CRE RatioNOT REPORTEDNormal9-20[facility] Berger HospitalComment on above:Performed By: #### CDP, CP, LIP, TROPI, LIPRF, GLYHGB #### [facility] [address] [place] [address] [phone] Sign Writer Hand: FABIANA Mcmanustaging:NOT REPORTEDNormalOhiohealth Berger HospitalComment on above:Performed By: #### CDP, CP, LIP, TROPI, LIPRF, GLYHGB #### [facility] [address] [place] [address] [phone] Sign Writer Hand: Josh Mcmanus Metabolic Panel w/ Reflex to MGon [id number] gap [Moles/Vol]14 mmol/L9 - 17 mmol/LMSumma Health Wadsworth [facility] Rittman [facility], KYBun/Cre RatioNOT REPORTEDMerFirelands Regional Medical Center, KYCalcium [Mass/Vol]8.8 mg/dL8.6 - 10.4 mg/dLMount St. [facility], KYChloride [Moles/Vol]94 mmol/LLow98 - 107 mmol/LMSumma Health Wadsworth - Rittman [facility], KYCO2 [Moles/Vol]23 mmol/L20 - 31 mmol/LMSumma Health Wadsworth - [facility]itt[facility], [place] Creatinine [Mass/Vol]0.36 mg/dLLow0.5 - 0.9 mg/dLMount St. Mary Hospital, KYGFR >60>60 mL/minMount [facility]. Mary Hospital, KYGFR Non->60>60 mL/min [facility], KYGFR/1.73 sq M predicted among non-blacks MDRD (S/P/Bld) [Vol rate/Area][facility], KYComment on above:Average GFR for 70 or more years old: 75 mL/min/1.73sq m Chronic Kidney Disease: <60 mL/min/1.73sq m Kidney failure: <15 mL/min/1.73sq m eGFR calculated using average adult body mass. Additional eGFR calculator available at: http://www.[employer]/multiple_crcl_2012.htm GFR/1.73 sq M predicted among non-blacks MDRD (S/P/Bld) [Vol rate/Area]NOT REPORTEDMount St. [facility] Hospital, KYGlucose [Mass/Vol]89 mg/dL70 - 99 mg/dLMount St. Mary Hospital, KYInterpretation and review of laboratory resultsAbnormalMount St. Mary Hospital, KYPotassium [Moles/Vol]3.7 mmol/L3.7 - 5.3 mmol/LMSumma Health Wadsworth [facility], KYSodium [Moles/Vol]131 mmol/JGzx502 - 144 mmol/[facility], KYUrea nitrogen [Mass/Vol]16 mg/dL8 - 23 mg/dLMount St. Mary Hospital, KYCBC auto differentialon [id number] (Bld) [#/Vol]0.06 10*3/uLUc Health [place], KYBasophils/100 WBC (Bld)1 %0 - 2 %[facility], KYDifferential TypeNOT REPORTEDMount St. Mary Hospital, KYEosinophils (Bld) [#/Vol]0.13 10*3/[facility], [place] Eosinophils/100 WBC (Bld)1 %1 - 4 %[facility], KYErythrocyte distribution width (RBC) [Ratio]14.6 %High11.8 - 14.4 %[facility], KYHematocrit (Bld) [Volume fraction]41.6 %36.3 - 47.1 %[facility], KYHemoglobin (Bld) [Mass/Vol]13.4 g/dL11.9 - 15.1 g/dLMount St. Mary Hospital, KYImmature granulocytes (Bld) [#/Vol]1 %Wmqo0EfymuMount St. Mary Hospital, KYImmature granulocytes (Bld) [#/Vol]0.11 10*3/[facility], KYInterpretation and review of laboratory results AbnormalMount St. Mary Hospital, KYLymphocytes (Bld) [#/Vol]2.56 10*3/[facility], KYLymphocytes/100 WBC (Bld)24 %24 - 43 %[facility], KYMCH (RBC) [Entitic mass]29.3 pg25.2 - 33.[address] [facility], KYMCHC (RBC) [Mass/Vol]32.2 g/dL28.4 - 34.8 g/dLMount St. Mary Hospital, KYMCV (RBC) [Entitic vol]90.8 fL82.6 - 102.[address] Mary Hospital, KYMonocytes (Bld) [#/Vol]0.78 10*3/[facility], KYMonocytes/100 WBC (Bld)7 %3 - 12 %[facility], KYPlatelet mean volume (Bld) [Entitic vol]10.6 fL8.1 - 13.[address] Mary Hospital, KYPlatelets (Bld) [#/Vol]NOT REPORTEDMount St. [facility] Hospital, KYPlatelets (Bld) [#/Vol]241 10*3/uLMount St. Mary Hospital, MERBC (Bld) [#/Vol]4.58 10*6/uL3.95 - 5.11 m/uLMount St. Mary Hospital, [place] RBC morphology finding Nom (Bld)ANISOCYTOSIS PRESENTMillheim, [place] Segmented neutrophils/100 WBC (Bld)66 %High36 - 65 %[facility], MESegs Absolute7.00[facility], MEWBC (Bld) [#/Vol]10.6 10*3/uLMount St. Mary Hospital, MEWBC (Bld) [#/Vol]0.0 10*3/uL0.0 per 100 WBCMillheim, KYWBC Morphology NOT REPORTEDMillheim, KYCB with Diffon [id number]. Basophil0.06 k/uL Normal0.00-0.20[facility] HospitalComment on above:Performed By: #### CDP, CP, LIP, TROPI, LIPRF, GLYHGB #### [facility] [address] [place] [address] [phone] Sign Writer Hand: Marie Mcmanus.Imm.Granulocyte0.11 k/uLNormal0.00-0.30[facility] Berger HospitalComment on above:Performed By: #### CDP, CP, LIP, TROPI, LIPRF, GLYHGB #### [facility] [address] [place] [address] [phone] Sign Writer Hand: Marie Mcmanus.Neutrophil (Seg)7.00 k/uLNormal1.50-8.10 [facility] HospitalComment on above:Performed By: #### CDP, CP, LIP, TROPI, LIPRF, GLYHGB #### [facility] [address] [place] [address] [phone] Sign Writer Hand: Brandon Anaya MDBasophils/100 WBC (Bld)1 %Normal0-2MWashington HospitalComment on above:Performed By: #### CDP, CP, LIP, TROPI, LIPRF, GLYHGB #### [facility] [address] [place] [address] Sign Writer Hand: Brandon Anaya MDEosinophils (Bld) [#/Vol]0.13 10*3/uLNormal 0.00-0.44Ohio[facility] Berger HospitalComment on above:Performed By: #### CDP, CP, LIP, TROPI, LIPRF, GLYHGB #### [facility] [address] [place] [address] Sign Writer Hand: Brandon Anaya MDEosinophils/100 WBC (Bld)1 %Normal1-4[facility] Berger HospitalComment on above:Performed By: #### CDP, CP, LIP, TROPI, LIPRF, GLYHGB #### [place] [address] Sign Writer Hand: Brandon Anaya MDErythrocyte distribution width (RBC) [Ratio]14.6 %High11.8-14.4[facility] Berger HospitalComment on above:Performed By: #### CDP, CP, LIP, TROPI, LIPRF, GLYHGB #### [facility] [address] [place] [address] Sign Writer Hand: Brandon Anaya MDHematocrit (Bld) [Volume fraction]41.6 %Normal 36.3-47.1MWashington HospitalComment on above:Performed By: #### CDP, CP, LIP, TROPI, LIPRF, GLYHGB #### [facility] [address] [place] [address] Sign Writer Hand: Brandon Anaya MDHemoglobin (Bld) [Mass/Vol]13.4 g/dLNormal 11.9-15.1MWashington HospitalComment on above:Performed By: #### CDP, CP, LIP, TROPI, LIPRF, GLYHGB #### [facility] [address] [place] [address] [phone] Sign Writer Hand: Brandon Anaya MDImmature granulocytes (Bld) [#/Vol]1 %Wluy5HlzeeOhiohealth Berger HospitalComment on above:Performed By: #### CDP, CP, LIP, TROPI, LIPRF, GLYHGB #### [address] [phone] Sign Writer Hand: Kortney Mcmanusmphocytes (Bld) [#/Vol]2.56 10*3/uLNormal 1.10-3.70[facility] Berger HospitalComment on above:Performed By: #### CDP, CP, LIP, TROPI, LIPRF, GLYHGB #### [facility] [address] [place] [address] [phone] Sign Writer Hand: Luiza Mcmanushocytes/100 WBC (Bld)24 %Bdjsqm91-76RysvtOhiohealth Berger HospitalComment on above:Performed By: #### CDP, CP, LIP, TROPI, LIPRF, GLYHGB #### [facility] [address] [place] [address] [phone] Sign Writer Hand: LIZZY McmanusCH (RBC) [Entitic mass]29.3 haOwgcou45.2-33.5 [facility] HospitalComment on above:Performed By: #### CDP, CP, LIP, TROPI, LIPRF, GLYHGB #### [facility] [address] [place] [address] [phone] Sign Writer Hand: LIZZY McmanusCHC (RBC) [Mass/Vol]32.2 g/eQNztqen13.4-34.8 [facility] HospitalComment on above:Performed By: #### CDP, CP, LIP, TROPI, LIPRF, GLYHGB #### [facility] [address] [place] [address] [phone] Sign Writer Hand: LIZZY McmanusCV (RBC) [Entitic vol]90.8 iYPywygb20.6-102.9 [facility] HospitalComment on above:Performed By: #### CDP, CP, LIP, TROPI, LIPRF, GLYHGB #### [address] [phone] Sign Writer Hand: LIZZY Mcmanusonocytes (Bld) [#/Vol]0.78 10*3/uLNormal 0.10-1.20[facility] Berger HospitalComment on above:Performed By: #### CDP, CP, LIP, TROPI, LIPRF, GLYHGB #### [facility] [address] [place] [address] Sign Writer Hand: LIZZY Mcmanusonocytes/100 WBC (Bld)7 %Normal3-12[facility] Berger HospitalComment on above:Performed By: #### CDP, CP, LIP, TROPI, LIPRF, GLYHGB #### [facility] [address] [place] [address] Sign Writer Hand: Modesta Mcmanusophil (Seg)66 %Wzee03-25TklmdOhiohealth Berger HospitalComment on above:Performed By: #### CDP, CP, LIP, TROPI, LIPRF, GLYHGB #### [place] [address] Sign Writer Hand: Brandon Anaya MDNRBC Automated0.0 per 100 WBCNormal0.0Ohio[facility] Berger HospitalComment on above:Performed By: #### CDP, CP, LIP, TROPI, LIPRF, GLYHGB #### [facility] [address] [place] [address] [phone] Sign Writer Hand: BLADIMIR Mcmanuslatelet mean volume (Bld) [Entitic vol]10.6 fL Normal8.1-13.5Ohio[facility] Berger HospitalComment on above:Performed By: #### CDP, CP, LIP, TROPI, LIPRF, GLYHGB #### [facility] [address] [place] [address] [phone] Sign Writer Hand: Geremias Mcmanustelets (Bld) [#/Vol]241 10*3/jEHieswc234-810 [facility] HospitalComment on above:Performed By: #### CDP, CP, LIP, TROPI, LIPRF, GLYHGB #### [facility] [address] [place] [address] [phone] Sign Writer Hand: RICHA Mcmanus (Bld) [#/Vol]4.58 10*6/uLNormal3.95-5.11 [facility] HospitalComment on above:Performed By: #### CDP, CP, LIP, TROPI, LIPRF, GLYHGB #### [address] [phone] Sign Writer Hand: RICHA Mcmanus morphology finding Nom (Bld)ANISOCYTOSIS [facility] Medical Center – MadrasComment on above:Performed By: #### CDP, CP, LIP, TROPI, LIPRF, GLYHGB #### [facility] [address] [place] [address] [phone] Sign Writer Hand: LUCIAN Mcmanus (Bld) [#/Vol]10.6 10*3/uLNormal3.5-11.3MWashington HospitalComment on above:Performed By: #### CDP, CP, LIP, TROPI, LIPRF, GLYHGB #### [facility] [address] [place] [address] [phone] Sign Writer Hand: Gustabo Mcmanus Diff PerformedNOT [facility] Newberg Medical CenterComment on above:Performed By: #### CDP, CP, LIP, TROPI, LIPRF, GLYHGB #### [facility] [address] [place] [address] [phone] Sign Writer Hand: Geremias Mcmanustemariluz (Bld) [#/Vol]NOT REPORTEDOhioHealth O'Bleness HospitalComment on above:Performed By: #### CDP, CP, LIP, TROPI, LIPRF, GLYHGB #### [facility] [address] [place], [place] [phone] Sign Writer Hand: TAMMY McmanusBC MorphologyNOT REPORTEDNoFlower HospitalComment on above:Performed By: #### CDP, CP, LIP, TROPI, LIPRF, GLYHGB #### [facility] [address] [place], [place] [phone] Sign Writer Hand: WENDY Mcmanus LUMBAR SPINE W WO CONTRASTon 58-67-7785Zi compression fracture of the lumbar spine is [...] Radiol 2013; 10(10):789-794; J Vasc Surg. 2018; 67:2-77[facility], KYEXAMINATION: MRI OF THE LUMBAR SPINE WITHOUT [...] intact. The neural foramina are intact.[facility] [place]- [place], Radha, papo Incoming Radiant Results From [employer] - 10/15/2019 11:11 PM EDT EXAMINATION: MRI [...] 2013; 10(10):789-794; J Vasc Surg. 2018; 67:2-77 [place], KYMYCOPLASMA PNEUMONIAE ANTIBODY, IGMon [id number] pneumo IgM0.12<0.91[facility], MEComment on above: Reference Range: <=0.90 Negative 0.91-1.09 Equivocal >=1.10 Positive Mycoplasma Ab, IgMon 21-03-3843Wdtmmzuflh Ab, IgM0.12Normal<0.91Ohio[facility] Berger HospitalComment on above:Result Comment: Reference Range: <=0.90 Negative 0.91-1.09 Equivocal >=1.10 PositivePerformed By: #### CDP, CP, LIP, TROPI, LIPRF, GLYHGB #### [facility] [address] [place] [address] [phone] Sign Writer Hand: LENORE Mcmanus Glucose Fingerstickon 62-53-8609Pyqdqvx [Mass/Vol]100 mg/dL65 - 105 mg/dLMillheim, KYGlucose [Mass/Vol]99 mg/dL 65 - 105 mg/dLMount [address]. [facility] Hospital, KYGlucose [Mass/Vol]91 mg/dL65 - 105 mg/dLMount [facility]. [facility], KYGlucose [Mass/Vol]95 mg/dL65 - 105 mg/dLMount St. [facility], KYRENIN on 95-43-8085Ugifo Activity0.1ng/mL/hrMount St. Mary Hospital, KYComment on above: (NOTE) INTERPRETIVE INFORMATION: [...] angiotensinogen is decreased. See Compliance Statement D: [email or web address] Performed By: [facility] [address] [place] [phone] Setter Out: Nik Rosas MD, MS Renin CommentNOT [facility], MERenin Activityon 59-46-0080Wmixc Activity0.1 ng/mL/hrNoFlower HospitalComment on above: Result Comment: (NOTE) INTERPRETIVE INFORMATION: Renin Activity Adult, Normal sodium diet: Supine ................. 0.2-1.6 ng/mL/hr Upright ................ 0.5-4.0 ng/mL/hr Children, Normal sodium diet, Supine: [facility] (1-7 days) ..... 2.0-35.0 ng/mL/hr Cord blood [...] angiotensinogen is decreased. See Compliance Statement D: [email or web address] Performed By: [facility] [address] [place] [address] [phone] Setter Out: Nik Rosas MD, MSPerformed By: #### CDP, CP, LIP, TROPI, LIPRF, GLYHGB #### [place] [phone] [place] [phone] Sign Writer Hand: Xochilt Mcmanus 34-71-9115Cogzklnljdh1 ng/dLMount St. Mary Hospital MECombronson battle creek hospital on above:(NOTE) INTERPRETIVE INFORMATION: Aldosterone, Serum [...] reference intervals for this test in the [employer] Laboratory Test Directory (Antenna). Performed By: [facility] [address] [place] [address] Setter Out: Nik Rosas MD, MS Aldosterone CommentNOT REPORTEDMount St. Mary Hospital, Edgardosteroneon 10-14-2019 Aldosterone5.0 ng/dLNoFlower HospitalComment on above: Result Comment: (NOTE) INTERPRETIVE [...] reference intervals for this test in the [employer] Laboratory Test Directory (Antenna). Performed By: [facility] [address] [place] [address] [phone] Setter Out: Nik Rosas MD, MSPerformed By: #### CDP, CP, LIP, TROPI, LIPRF, GLYHGB #### [address] [phone] Sign Writer Hand: Josh Mcmanus Metab w/rfx MGon 10-14-2019(cont.)Normal [facility] Berger HospitalComment on above:Result Comment: Average GFR for 70 or more years old: 75 mL/min/1.73sq m Chronic Kidney Disease: <60 mL/min/1.73sq m Kidney failure: <15 mL/min/1.73sq m eGFR calculated using average adult body mass. Additional eGFR calculator available at: http://www.[employer]/multiple_crcl_2012.htmPerformed By: #### CDP, CP, LIP, TROPI, LIPRF, GLYHGB #### [place] [address] Sign Writer Hand: Brandon Anaya MDAnion gap [Moles/Vol]13 mmol/LNormal9-17Ohio[facility] Berger HospitalComment on above:Performed By: #### CDP, CP, LIP, TROPI, LIPRF, GLYHGB #### [address] [phone] Sign Writer Hand: Brandon Anaya MDCalcium [Mass/Vol]8.5 mg/dLLow8.6-10.4Ohio[facility] Berger HospitalComment on above:Performed By: #### CDP, CP, LIP, TROPI, LIPRF, GLYHGB #### [facility] [address] [place] [phone] Sign Writer Hand: NEHAL Mcmanushloride [Moles/Vol]91 mmol/LTha45-277GwyksOhiohealth Berger HospitalComment on above:Performed By: #### CDP, CP, LIP, TROPI, LIPRF, GLYHGB #### [facility] [address] [place] [address] [phone] Sign Writer Hand: Brandon Anaya MDCO2 [Moles/Vol]26 mmol/SCjszcp93-36LtlefOhiohealth Berger HospitalComment on above:Performed By: #### CDP, CP, LIP, TROPI, LIPRF, GLYHGB #### [address] [phone] Sign Writer Hand: NEHAL Mcmanusreatinine [Mass/Vol]0.48 mg/dLLow0.50-0.90Ohio[facility] Berger HospitalComment on above:Performed By: #### CDP, CP, LIP, TROPI, LIPRF, GLYHGB #### [facility] [address] [place] [address] [phone] Sign Writer Hand: Brandon Anaya MDGFR, Amer>60Normal>60Ohio[facility] Berger HospitalComment on above:Performed By: #### CDP, CP, LIP, TROPI, LIPRF, GLYHGB #### [facility] [address] [place] [address] [phone] Sign Writer Hand: Brandon Anaya MDGFR,non Amer>60Normal>60[facility] Berger HospitalComment on above:Performed By: #### CDP, CP, LIP, TROPI, LIPRF, GLYHGB #### [facility] [address] [place] [address] [phone] Sign Writer Hand: Brandon Anaya MDGlucose [Mass/Vol]104 mg/kSFaqn62-36Ovrro Herrick CampusComment on above:Performed By: #### CDP, CP, LIP, TROPI, LIPRF, GLYHGB #### [facility] [address] [place] [phone] Sign Writer Hand: BLADIMIR Mcmanusotassium [Moles/Vol]3.7 mmol/LNormal3.7-5.3 [facility] HospitalComment on above:Performed By: #### CDP, CP, LIP, TROPI, LIPRF, GLYHGB #### [facility] [address] [place] [phone] Sign Writer Hand: FABIANA Mcmanusodium [Moles/Vol]130 mmol/PErt533-389AoahaOhiohealth Berger HospitalComment on above:Performed By: #### CDP, CP, LIP, TROPI, LIPRF, GLYHGB #### [facility] [address] [place] [address] [phone] Sign Writer Hand: Rebecca Mcmanus nitrogen [Mass/Vol]19 mg/dLNormal8-23[facility] HospitalComment on above:Performed By: #### CDP, CP, LIP, TROPI, LIPRF, GLYHGB #### [facility] [address] [place] [phone] Sign Writer Hand: RADHA Mcmanus/CRE UlicesOT REPORTEDNormal9-20[facility] Berger HospitalComment on above:Performed By: #### CDP, CP, LIP, TROPI, LIPRF, GLYHGB #### [facility] [address] [place] [phone] Sign Writer Hand: FABIANA Mcmanustaging:NOT REPORTEDNormalOhiohealth Berger HospitalComment on above:Performed By: #### CDP, CP, LIP, TROPI, LIPRF, GLYHGB #### [facility] [address] [place] [phone] Sign Writer Hand: Daysi Mcmanus Metabolic Panel w/ Reflex to MGon [id number] gap [Moles/Vol]13 mmol/L9 - 17 mmol/LMaultman orrville hospitaly Health- [place], KYBun/Cre RatioNOT REPORTEDMerGarfield County Public Hospital- [place], KYCalcium [Mass/Vol]8.5 mg/dLLow8.6 - 10.4 mg/dLSelect [facility], [place]- [place], KYChloride [Moles/Vol]91 mmol/LLow98 - 107 mmol/LMmercy health [facility] Health- [place], KYCO2 [Moles/Vol]26 mmol/L20 - 31 mmol/LMaultman orrville hospitaly Health- [place], [place] Creatinine [Mass/Vol]0.48 mg/dLLow0.5 - 0.9 mg/dLSelect [facility], [place]- [place], KYGFR >60>60 mL/minMount [address]. Mary Hospital, KYGFR Non->60>60 mL/min [facility], KYGFR/1.73 sq M predicted among non-blacks MDRD (S/P/Bld) [Vol rate/Area][facility], KYComment on above:Average GFR for 70 or more years old: 75 mL/min/1.73sq m Chronic Kidney Disease: <60 mL/min/1.73sq m Kidney failure: <15 mL/min/1.73sq m eGFR calculated using average adult body mass. Additional eGFR calculator available at: http://www.[employer]/multiple_crcl_2012.htm GFR/1.73 sq M predicted among non-blacks MDRD (S/P/Bld) [Vol rate/Area]NOT REPORTEDMount St. [facility] Hospital, KYGlucose [Mass/Vol]104 mg/uUVqzd41 - 99 mg/dLMount St. Mary Hospital, KYInterpretation and review of laboratory resultsAbnormalSelect [facility], [place]- [place], KYPotassium [Moles/Vol]3.7 mmol/L3.7 - 5.3 mmol/LMCleveland Clinic [facility] Hospital- [place], KYSodium [Moles/Vol]130 mmol/MVdv218 - 144 mmol/LMmercy health [facility] Health- [place], KYUrea nitrogen [Mass/Vol]19 mg/dL8 - 23 mg/dLMount St. [facility] Hospital, KYCBC auto differential on 59-87-6804Rwemevog Lymphocytes3 %[facility], MEAtypical Lymphocytes Absolute0.30k/[facility], KYBasophils (Bld) [#/Vol]0.00 10*3/[facility], KYBasophils/100 WBC (Bld)0 %0 - 2 %[facility], MEDifferential TypeNOT REPORTEDMount St. Mary Hospital, KYEosinophils (Bld) [#/Vol]0.10 10*3/[facility], KYEosinophils/100 WBC (Bld)1 %1 - 4 %[facility], MEErythrocyte distribution width (RBC) [Ratio]14.7 %High11.8 - 14.4 %[facility], [place] Hematocrit (Bld) [Volume fraction]39.5 %36.3 - 47.1 %[facility], [place] Hemoglobin (Bld) [Mass/Vol]12.9 g/dL11.9 - 15.1 g/dLMount St. Mary Hospital, MEImmature granulocytes (Bld) [#/Vol]0.10 10*3/[facility], MEImmature granulocytes (Bld) [#/Vol]1 %Scer3HkdpdMount St. Mary Hospital, MEInterpretation and review of laboratory resultsAbnormJoint Township District Memorial Hospital, CLARALymphocytes (Bld) [#/Vol]2.80 10*3/[facility], CLARALymphocytes/100 WBC (Bld)28 %24 - 44 %[facility], MEMCH (RBC) [Entitic mass]29.5 pg25.2 - 33.[address] [facility], MEMCHC (RBC) [Mass/Vol]32.7 g/dL28.4 - 34.8 g/dLMount St. Mary Hospital, MEMCV (RBC) [Entitic vol]90.2 fL82.6 - 102.[address] [facility], MEMonocytes (Bld) [#/Vol]0.50 10*3/[facility], MEMonocytes/100 WBC (Bld)5 %1 - 7 %[facility], CLARA Morphology Alfredo (Bld) [Interp]ANISOCYTOSIS PRESENTMount St. Mary Hospital, KYPlatelet mean volume (Bld) [Entitic vol]10.1 fL8.1 - 13.[address] [facility], KYPlatelets (Bld) [#/Vol]190 10*3/uLMount St[address] Mary Hospital, KYPlatelets (Bld) [#/Vol]NOT REPORTED [facility], MERBC (Bld) [#/Vol]4.38 10*6/uL3.95 - 5.11 m/uLMount St. Mary Hospital, MERBC morphology finding Nom (Bld)NOT REPORTEDMount St. [facility] Hospital, MESegmented neutrophils/100 WBC (Bld)62 %36 - 66 %[facility], MESegs Absolute6.20[facility], KYWBC (Bld) [#/Vol]10.0 10*3/uLMount St. Mary Hospital, KYWBC (Bld) [#/Vol]0.0 10*3/uL0.[address] [facility], MEWBC MorphologyNOT REPORTED [facility], MECBC with Diffon [id number]. Atypical Lymphs0.30 k/uL NormalOhiohealth Berger HospitalComment on above:Performed By: #### CDP, CP, LIP, TROPI, LIPRF, GLYHGB #### [employer] [address] [place], [place] [phone] Sign Writer Hand: Marie Mcmanus. Basophil0.00 k/uLNormal0.0-0.2MWashington HospitalComment on above:Performed By: #### CDP, CP, LIP, TROPI, LIPRF, GLYHGB #### [employer] [address] [place], [place] [phone] Sign Writer Hand: Marie Mcmanus.Imm.Granulocyte0.10 k/uLNormal0.00-0.30Ohio[facility] Berger HospitalComment on above:Performed By: #### CDP, CP, LIP, TROPI, LIPRF, GLYHGB #### [facility] [address] [place] [phone] Sign Writer Hand: Marie Mcmanus.Neutrophil (Seg)6.20 k/uLNormal1.8-7.7Ohiohealth Berger HospitalComment on above:Performed By: #### CDP, CP, LIP, TROPI, LIPRF, GLYHGB #### [address] [phone] Sign Writer Hand: Brandon Anaya MDAtypical Lymphs3 %NormalOhiohealth Berger HospitalComment on above:Performed By: #### CDP, CP, LIP, TROPI, LIPRF, GLYHGB #### [address] [phone] Sign Writer Hand: Brandon Anaya MDBasophils/100 WBC (Bld)0 %Normal0-2MWashington HospitalComment on above:Performed By: #### CDP, CP, LIP, TROPI, LIPRF, GLYHGB #### [address] [phone] Sign Writer Hand: Brandon Anaya MDEosinophils (Bld) [#/Vol]0.10 10*3/uLNormal 0.0-0.4Ohiohealth Berger HospitalComment on above:Performed By: #### CDP, CP, LIP, TROPI, LIPRF, GLYHGB #### [address] [phone] Sign Writer Hand: Brandon Anaya MDEosinophils/100 WBC (Bld)1 %Normal1-4Ohiohealth Berger HospitalComment on above:Performed By: #### CDP, CP, LIP, TROPI, LIPRF, GLYHGB #### [address] [address] Sign Writer Hand: Brandon Anaya MDImmature granulocytes (Bld) [#/Vol]1 %Xftf3FazsbOhiohealth Berger HospitalComment on above:Performed By: #### CDP, CP, LIP, TROPI, LIPRF, GLYHGB #### [address] [address] Sign Writer Hand: Brandon Anaya MDLymphocytes (Bld) [#/Vol]2.80 10*3/uLNormal 1.0-4.8Ohiohealth Berger HospitalComment on above:Performed By: #### CDP, CP, LIP, TROPI, LIPRF, GLYHGB #### [place] [address] Sign Writer Hand: Brandon Anaya MDLymphocytes/100 WBC (Bld)28 %Jaauau19-76FgkphOhiohealth Berger HospitalComment on above:Performed By: #### CDP, CP, LIP, TROPI, LIPRF, GLYHGB #### [facility] [address] [place] [address] Sign Writer Hand: LIZZY Mcmanusonocytes (Bld) [#/Vol]0.50 10*3/uLNormal0.1-0.8 Ohio[facility] Berger HospitalComment on above:Performed By: #### CDP, CP, LIP, TROPI, LIPRF, GLYHGB #### [place] [address] Sign Writer Hand: LIZZY Mcmanusonocytes/100 WBC (Bld)5 %Normal1-7Ohiohealth Berger HospitalComment on above:Performed By: #### CDP, CP, LIP, TROPI, LIPRF, GLYHGB #### [facility] [address] [place] [address] Sign Writer Hand: Brandon Anaya MDMorphology Alfredo (Bld) [Interp]ANISOCYTOSIS PRESENTNormalOhiohealth Berger HospitalComment on above:Performed By: #### CDP, CP, LIP, TROPI, LIPRF, GLYHGB #### [facility] [address] [place] [address] Sign Writer Hand: Brandon Anaya MDNeutrophil (Seg)62 %Gribnj31-91TkkxxOhiohealth Berger HospitalComment on above:Performed By: #### CDP, CP, LIP, TROPI, LIPRF, GLYHGB #### [address] [address] Sign Writer Hand: Brandon Anaya MDErythrocyte distribution width (RBC) [Ratio]14.7 %High11.8-14.4Ohiohealth Berger HospitalComment on above:Performed By: #### CDP, CP, LIP, TROPI, LIPRF, GLYHGB #### [address] [address] Sign Writer Hand: Brandon Anaya MDHematocrit (Bld) [Volume fraction]39.5 %Normal 36.3-47.1MWashington HospitalComment on above:Performed By: #### CDP, CP, LIP, TROPI, LIPRF, GLYHGB #### [address] [address] Sign Writer Hand: Brandon Anaya MDHemoglobin (Bld) [Mass/Vol]12.9 g/dLNormal 11.9-15.1MWashington HospitalComment on above:Performed By: #### CDP, CP, LIP, TROPI, LIPRF, GLYHGB #### [address] [address] Sign Writer Hand: LIZZY McmanusCH (RBC) [Entitic mass]29.5 pcDsrptk37.2-33.5 Ohio[facility] Berger HospitalComment on above:Performed By: #### CDP, CP, LIP, TROPI, LIPRF, GLYHGB #### [facility] [address] [place] [address] Sign Writer Hand: LIZZY McmanusCHC (RBC) [Mass/Vol]32.7 g/oLKyyhqv22.4-34.8 [facility] Berger HospitalComment on above:Performed By: #### CDP, CP, LIP, TROPI, LIPRF, GLYHGB #### [facility] [address] [place] [address] Sign Writer Hand: LIZZY McmanusCV (RBC) [Entitic vol]90.2 yTLkytof39.6-102.9 [facility] Berger HospitalComment on above:Performed By: #### CDP, CP, LIP, TROPI, LIPRF, GLYHGB #### [facility] [address] [place] [address] Sign Writer Hand: Brandon Anaya MDNRBC Automated0.0 per 100 WBCNormal0.0Ohiohealth Berger HospitalComment on above:Performed By: #### CDP, CP, LIP, TROPI, LIPRF, GLYHGB #### [facility] [address] [place] [address] Sign Writer Hand: Nadeem Mcmanus mean volume (Bld) [Entitic vol]10.1 fL Normal8.1-13.5Ohiohealth Berger HospitalComment on above:Performed By: #### CDP, CP, LIP, TROPI, LIPRF, GLYHGB #### [facility] [address] [place] [address] Sign Writer Hand: Bon Mcmanus (Bld) [#/Vol]190 10*3/lKHgwusr116-889 Ohio[facility] Berger HospitalComment on above:Performed By: #### CDP, CP, LIP, TROPI, LIPRF, GLYHGB #### [facility] [address] [place] [address] Sign Writer Hand: DREW McmanusBC (Bld) [#/Vol]4.38 10*6/uLNormal3.95-5.11 [facility] Berger HospitalComment on above:Performed By: #### CDP, CP, LIP, TROPI, LIPRF, GLYHGB #### [facility] [address] [place] [address] Sign Writer Hand: LUCIAN Mcmanus (Bld) [#/Vol]10.0 10*3/uLNormal3.5-11.3MWashington HospitalComment on above:Performed By: #### CDP, CP, LIP, TROPI, LIPRF, GLYHGB #### [facility] [address] [place] [address] Sign Writer Hand: Gustabo Mcmanus PerformedNOT REPORTEDNormalOhiohealth Berger HospitalComment on above:Performed By: #### CDP, CP, LIP, TROPI, LIPRF, GLYHGB #### [facility] [address] [place] [address] Sign Writer Hand: Bon Mcmanus (Bld) [#/Vol]NOT REPORTEDNormalOhiohealth Berger HospitalComment on above:Performed By: #### CDP, CP, LIP, TROPI, LIPRF, GLYHGB #### [facility] [address] [place] [address] Sign Writer Hand: RICHA Mcmanus morphology finding Nom (Bld)NOT REPORTED NormalOhiohealth Berger HospitalComment on above:Performed By: #### CDP, CP, LIP, TROPI, LIPRF, GLYHGB #### [facility] [address] [place] [address] Sign Writer Hand: LUCIAN Mcmanus MorphologyNOT REPORTEDLafayette Regional Health CenteralOhiohealth Berger HospitalComment on above:Performed By: #### CDP, CP, LIP, TROPI, LIPRF, GLYHGB #### [facility] [address] [place] [address] Sign Writer Hand: Brandon Anaya, MDMETANEPHRINES PLASMA FREEon 10-14-2019 Metaneph/Plasma InterpSee [facility], KYComment on above:(NOTE) INTERPRETIVE INFORMATION: Metanephrines, Plasma [...] should be considered. See Compliance Statement B: Antenna/Service Route Performed By: [employer] [address] [place] [phone] Setter Out: Nik Rosas MD, MS Metanephrine0.14 nmol/L0 - 0.49 nmol/[facility], KYNormetanephrine0.73 nmol/L0 - 0.89 nmol/[facility], KYMetanephrine, Plasmaon 10-14-2019 Metaneph Interee Licking Memorial HospitalComment on above: Result Comment: (NOTE) [...] should be considered. See Compliance Statement B: Antenna/CS Performed By: [place] [address] Setter Out: Nik Rosas MD, MSPerformed By: #### CDP, CP, LIP, TROPI, LIPRF, GLYHGB #### [facility] [address] [place] [address] Sign Writer Hand: LIZZY Mcmanusetanephrine0.14 nmol/LNormal0.00-0.49Ohiohealth Berger HospitalComment on above:Performed By: #### CDP, CP, LIP, TROPI, LIPRF, GLYHGB #### [facility] [address] [place] [address] Sign Writer Hand: Brandon Anaya MDNormetanephrine0.73 nmol/LNormal0.00-0.89Ohiohealth Berger HospitalComment on above:Performed By: #### CDP, CP, LIP, TROPI, LIPRF, GLYHGB #### [facility] [address] [place] [phone] Sign Writer Hand: BLADIMIR McmanusOC Glucose Fingerstickon [id number] [Mass/Vol]86 mg/dL65 - 105 mg/dLMount St. Mary Hospital, KYGlucose [Mass/Vol]105 mg/dL 65 - 105 mg/dLMount St. Mary Hospital, KYGlucose [Mass/Vol]159 mg/aTLowh29 - 105 mg/dL [facility], KYInterpretation and review of laboratory resultsAbnoNewark Hospital, KYGlucose [Mass/Vol]113 mg/fSUzwy75 - 105 mg/dLMount St. Mary [facility], [place] Interpretation and review of laboratory resultsAbnoNewark Hospital, KYT. pallidum Abon 10-14-2019T. pallidum, IgGNONREACTIVENONREACTIVEMount St. Mary Hospital, KYComment on above: T. pallidum antibodies are not detected. There is no serological evidence of infection with T. pallidum (early primary syphilis cannot be excluded). Retest in 2-4 weeks if syphilis is clinically suspect. T.pallidum Ab Screenon 10-14-2019T.pallidum Ab ScreenNONREACTIVENormalNROhiohealth Berger HospitalComment on above:Result Comment: T. pallidum antibodies are not detected. There is no serological evidence of infection with T. pallidum (early primary syphilis cannot be excluded). Retest in 2-4 weeks if syphilis is clinically suspect.Performed By: #### CDP, CP, LIP, TROPI, LIPRF, GLYHGB #### [facility] [address] [place], [place] [phone] Sign Writer Hand: Brandon Anaya MDAMMONIAon [id number] (P) [Mass/Vol]28 umol/L11 - 51 umol/LMercy Health- [place], KYAmmoniaon 07-43-8958Jgvtprk (P) [Mass/Vol]28 umol/TLmxxuf04-52MnjloOhiohealth Berger HospitalComment on above: Performed By: #### CDP, CP, LIP, TROPI, LIPRF, GLYHGB #### [facility] [place], [place] [phone] Sign Writer Hand: Brandon Anaya MDBLCOMMUNITY MEMORIAL HOSPITAL GAS, VENOUSon [id number] TestNOT REPORTEDMercy Health- [place], KYaPTT Coag (Bld) [Time]37.0 sMercy Health- [place], [place] Carboxyhemoglobin1.3 %0 - 5 %[facility]- [place], KYComment on above: Reference Range: Non-Smokers 0-2% Average Smoker 2-4% Heavy Smoker <10% LFV2HZNM AIRMercy Health- [place], KYHCO3, Feoian44.4 mmol/L24 - 30 mmol/LMercy Health- [place], KYInterpretation and review of laboratory resultsAbnormalMercy Health- [place], KYMethemoglobinNOT REPORTED0 - 1.5 %[facility]- [place], KYModeNOT REPORTEDMercy Health- [place], KYNegative Base Excess, VenNOT REPORTED0 - 2 mmol/L [facility]- [place], KYNOTIFICATIONNOT REPORTEDMercy Health- [place], KYNOTIFICATION TIMENOT REPORTEDMercy Health- [place], KYO2 Device/Flow/%NOT REPORTEDMercy Health- [place], KYOxygen saturation in Blood78.1 %60 - 85 %[facility]- [place], KYOxyhemoglobin NOT QGOQHTVG48 - 98 %[facility]- [place], KYpCO2, Ven42.6[facility] [...] RespiratoryNOT REPORTEDMercy Health- [place], KYTotal Hb NOT SCQKLIME74 - 16 g/dlMercy Health- [place], KYTotal RateNOT REPORTEDMercy Health- [place], KYVTNOT REPORTEDMercy Health- [place], KYBasic Metab w/rfx MGon 10-13-2019 Potassium [Moles/Vol]3.4 mmol/LLow3.7-5.3MWashington HospitalComment on above:Performed By: #### CDP, CP, LIP, TROPI, LIPRF, GLYHGB #### [facility] [address] [place] [address] Sign Writer Hand: Brandon Anaya MD(cont.)[facility] Comment on above:Result Comment: Average GFR for 70 or more years old: 75 mL/min/1.73sq m Chronic Kidney Disease: <60 mL/min/1.73sq m Kidney failure: <15 mL/min/1.73sq m eGFR calculated using average adult body mass. Additional eGFR calculator available at: http://www.bead Button.Autoquake/multiple_crcl_2012.htmPerformed By: #### CDP, CP, LIP, TROPI, LIPRF, GLYHGB #### [facility] [address] [place] [address] Sign Writer Hand: Brandon Anaya MDAnion gap [Moles/Vol]16 mmol/LNormal9-17Ohiohealth Berger HospitalComment on above:Performed By: #### CDP, CP, LIP, TROPI, LIPRF, GLYHGB #### [facility] [address] [place] [phone] Sign Writer Hand: NEHAL Mcmanusalcium [Mass/Vol]9.0 mg/dLNormal8.6-10.4Ohiohealth Berger HospitalComment on above:Performed By: #### CDP, CP, LIP, TROPI, LIPRF, GLYHGB #### [facility] [address] [place] [address] Sign Writer Hand: Brandon Anaya MDChloride [Moles/Vol]90 mmol/HLdc20-468MsdwwOhiohealth Berger HospitalComment on above:Performed By: #### CDP, CP, LIP, TROPI, LIPRF, GLYHGB #### [facility] [address] [place] [address] Sign Writer Hand: Brandon Anaya MDCO2 [Moles/Vol]25 mmol/OMrichl67-89QqpyuOhiohealth Berger HospitalComment on above:Performed By: #### CDP, CP, LIP, TROPI, LIPRF, GLYHGB #### [facility] [address] [place] [phone] Sign Writer Hand: Brandon Anaya MDCreatinine [Mass/Vol]0.47 mg/dLLow0.50-0.90Ohiohealth Berger HospitalComment on above:Performed By: #### CDP, CP, LIP, TROPI, LIPRF, GLYHGB #### [facility] [address] [place] [address] Sign Writer Hand: CAROLYN Mcmanus, Amer>60Normal>60MerSaint Agnes Medical CenterComment on above:Performed By: #### CDP, CP, LIP, TROPI, LIPRF, GLYHGB #### [facility] [address] [place] [phone] Sign Writer Hand: Brandon Anaya MDGFR,non Amer>60Normal>60MerSaint Agnes Medical CenterComment on above:Performed By: #### CDP, CP, LIP, TROPI, LIPRF, GLYHGB #### [facility] [address] [place] [phone] Sign Writer Hand: Brandon Anaya MDGlucose [Mass/Vol]113 mg/mKAcgx55-46McnsrVencor HospitalComment on above:Performed By: #### CDP, CP, LIP, TROPI, LIPRF, GLYHGB #### [address] [address] Sign Writer Hand: FABIANA Mcmanusodium [Moles/Vol]131 mmol/CAcq162-204GuwdsOhiohealth Berger HospitalComment on above:Performed By: #### CDP, CP, LIP, TROPI, LIPRF, GLYHGB #### [facility] [address] [place] [address] Sign Writer Hand: Brandon Anaya MDUrea nitrogen [Mass/Vol]16 mg/dLNormal8-23MerSaint Agnes Medical CenterComment on above:Performed By: #### CDP, CP, LIP, TROPI, LIPRF, GLYHGB #### [facility] [address] [place] [phone] Sign Writer Hand: RADHA Mcmanus/CRE UlicesOT REPORTEDNormal9-20Ohiohealth Berger HospitalComment on above:Performed By: #### CDP, CP, LIP, TROPI, LIPRF, GLYHGB #### [facility] [address] [place] [phone] Sign Writer Hand: FABIANA Mcmanustaging:NOT REPORTEDNormFort Hamilton HospitalComment on above:Performed By: #### CDP, CP, LIP, TROPI, LIPRF, GLYHGB #### [employer] [address] [place] [address] Sign Writer Hand: Radha Mcmanuswestern state hospital Metabolic Panel w/ Reflex to MGon [id number] gap [Moles/Vol]16 mmol/L9 - 17 mmol/LMSumma Health Wadsworth - [facility], KYBun/Cre RatioNOT REPORTEDMount St. Mary Hospital, KYCalcium [Mass/Vol]9.0 mg/dL8.6 - 10.4 mg/dLMount St. Mary Hospital, KYChloride [Moles/Vol]90 mmol/LLow98 - 107 mmol/[facility], KYCO2 [Moles/Vol]25 mmol/L20 - 31 mmol/[facility], [place] Creatinine [Mass/Vol]0.47 mg/dLLow0.5 - 0.9 mg/dLMount St. Mary Hospital, KYGFR >60>60 mL/minMount St. Mary Hospital, KYGFR Non->60>60 mL/min [facility], KYGFR/1.73 sq M predicted among non-blacks MDRD (S/P/Bld) [Vol rate/Area]NOT REPORTEDMount St. Mary Hospital, KYGFR/1.73 sq M predicted among non- blacks MDRD (S/P/Bld) [Vol rate/Area][facility], KYComment on above: Average GFR for 70 or more years old: 75 mL/min/1.73sq m Chronic Kidney Disease: <60 mL/min/1.73sq m Kidney failure: <15 mL/min/1.73sq m eGFR calculated using average adult body mass. Additional eGFR calculator available at: http://www.bead Button.Autoquake/multiple_crcl_2012.htm Glucose [Mass/Vol]113 mg/ySHsaa73 - 99 mg/dLMount St. Mary Hospital, KYInterpretation and review of laboratory resultsAbnormJoint Township District Memorial Hospital, KYPotassium [Moles/Vol]3.4 mmol/LLow3.7 - 5.3 mmol/[facility]- [place], KYSodium [Moles/Vol] 131 mmol/CVgq005 - 144 mmol/LMCleveland Clinic [facility]- [place], KYUrea nitrogen [Mass/Vol]16 mg/dL8 - 23 mg/dLSelect Medical [facility] [place]- [place], KYCBC auto differentialon [id number] (Bld) [#/Vol]0.07 10*3/[facility]- [place], KYBasophils/100 WBC (Bld)1 %0 - 2 % [facility], KYDifferential TypeNOT REPORTEDUc Health [place], KYEosinophils (Bld) [#/Vol]10*3/[facility]- [place], KYEosinophils/100 WBC (Bld)0 %Low1 - 4 % [facility] [place]- [place], KYErythrocyte distribution width (RBC) [Ratio]15.0 %High11.8 - 14.4 %[facility] [place], KYHematocrit (Bld) [Volume fraction]45.5 %36.3 - 47.1 % [facility], KYHemoglobin (Bld) [Mass/Vol]14.5 g/dL11.9 - 15.1 g/dLUc Health [place], KYImmature granulocytes (Bld) [#/Vol]0.14 10*3/[facility]- [place], KYImmature granulocytes (Bld) [#/Vol]1 %Kmdw9OhkyzMount St. Mary Hospital, KYInterpretation and review of laboratory resultsAbnormWilson Health [place], KYLymphocytes (Bld) [#/Vol]2.84 10*3/[facility] [place], KYLymphocytes/100 WBC (Bld)23 %Low24 - 43 % [facility], KYMCH (RBC) [Entitic mass]29.8 pg25.2 - 33.5 pgUc Health [place], KYMCHC (RBC) [Mass/Vol]31.9 g/dL28.4 - 34.8 g/dLUc Health [place], KYMCV (RBC) [Entitic vol]93.4 fL82.6 - 102.9 fLUc Health [place], KYMonocytes (Bld) [#/Vol]1.22 10*3/uLKindred Hospital [place], KYMonocytes/100 WBC (Bld)10 %3 - 12 % [facility], KYPlatelet mean volume (Bld) [Entitic vol]10.5 fL8.1 - 13.[address] [facility], KYPlatelets (Bld) [#/Vol]NOT REPORTEDMount St. Mary Hospital, [place] Platelets (Bld) [#/Vol]210 10*3/uLMount St. [facility] Hospital, MERBC (Bld) [#/Vol]4.87 10*6/uL3.95 - 5.11 m/uLMount St. Mary Hospital, KYRBC morphology finding Nom (Bld) ANISOCYTOSIS PRESENTMount St. Mary Hospital, KYSegmented neutrophils/100 WBC (Bld)65 % 36 - 65 %[facility], KYSegs Absolute8.01[facility], KYWBC (Bld) [#/Vol]12.3 10*3/uLHighMount St. Mary Hospital, KYWBC (Bld) [#/Vol]0.0 10*3/uL0.[address] Mary Hospital, KYWBC MorphologyNOT REPORTEDMount St. Mary Hospital, KYCBC with Diffon [id number]. Basophil0.07 k/uLNormal0.00-0.20Ohio[facility] Berger HospitalComment on above:Performed By: #### CDP, CP, LIP, TROPI, LIPRF, GLYHGB #### [facility] [place], [place] [phone] Sign Writer Hand: Marie Mcmanus.Imm.Granulocyte0.14 k/uLNormal0.00-0.30Ohiohealth Berger HospitalComment on above:Performed By: #### CDP, CP, LIP, TROPI, LIPRF, GLYHGB #### [employer] [address] [place] [address] Sign Writer Hand: Marie Mcmanus.Neutrophil (Seg)8.01 k/uLNormal1.50-8.10 [facility] Berger HospitalComment on above:Performed By: #### CDP, CP, LIP, TROPI, LIPRF, GLYHGB #### [address] [address] Sign Writer Hand: Brandon Anaya MDBasophils/100 WBC (Bld)1 %Normal0-2[facility] hospitaly Herrick CampusComment on above:Performed By: #### CDP, CP, LIP, TROPI, LIPRF, GLYHGB #### [address] [address] Sign Writer Hand: Brandon Anaya MDEosinophils (Bld) [#/Vol]10*3/uLNormal0.00-0.44 [facility] Berger HospitalComment on above:Performed By: #### CDP, CP, LIP, TROPI, LIPRF, GLYHGB #### [place] [address] Sign Writer Hand: MAU Mcmanusosinophils/100 WBC (Bld)0 %Low1-4Ohio[facility] Berger HospitalComment on above:Performed By: #### CDP, CP, LIP, TROPI, LIPRF, GLYHGB #### [facility] [address] [place] [address] Sign Writer Hand: Brandon Anaya MDErythrocyte distribution width (RBC) [Ratio]15.0 %High11.8-14.4Ohio[facility] Berger HospitalComment on above:Performed By: #### CDP, CP, LIP, TROPI, LIPRF, GLYHGB #### [facility] [address] [place] [phone] Sign Writer Hand: Brandon Anaya MDHematocrit (Bld) [Volume fraction]45.5 %Normal 36.3-47.1[facility] hospitaly Herrick CampusComment on above:Performed By: #### CDP, CP, LIP, TROPI, LIPRF, GLYHGB #### [address] [address] Sign Writer Hand: Brandon Anaya MDHemoglobin (Bld) [Mass/Vol]14.5 g/dLNormal 11.9-15.1MWashington HospitalComment on above:Performed By: #### CDP, CP, LIP, TROPI, LIPRF, GLYHGB #### [address] [address] Sign Writer Hand: Brandon Anaya MDImmature granulocytes (Bld) [#/Vol]1 %Lmrd9GnsmnOhiohealth Berger HospitalComment on above:Performed By: #### CDP, CP, LIP, TROPI, LIPRF, GLYHGB #### [address] [address] Sign Writer Hand: Brandon Anaya MDLymphocytes (Bld) [#/Vol]2.84 10*3/uLNormal 1.10-3.70Ohio[facility] Berger HospitalComment on above:Performed By: #### CDP, CP, LIP, TROPI, LIPRF, GLYHGB #### [address] [address] Sign Writer Hand: Kortney Mcmanusmphocytes/100 WBC (Bld)23 %Wxb67-34SlkkrOhiohealth Berger HospitalComment on above:Performed By: #### CDP, CP, LIP, TROPI, LIPRF, GLYHGB #### [address] [address] Sign Writer Hand: STEFFANIE Mcmanus (RBC) [Entitic mass]29.8 odGiycme56.2-33.5 [facility] HospitalComment on above:Performed By: #### CDP, CP, LIP, TROPI, LIPRF, GLYHGB #### [address] [address] Sign Writer Hand: LIZZY McmanusCHC (RBC) [Mass/Vol]31.9 g/pUDwalkg95.4-34.8 [facility] HospitalComment on above:Performed By: #### CDP, CP, LIP, TROPI, LIPRF, GLYHGB #### [address] [address] Sign Writer Hand: LIZZY McmanusCV (RBC) [Entitic vol]93.4 hOXyrlnh78.6-102.9 [facility] HospitalComment on above:Performed By: #### CDP, CP, LIP, TROPI, LIPRF, GLYHGB #### [address] [address] Sign Writer Hand: LIZZY Mcmanusonocytes (Bld) [#/Vol]1.22 10*3/uLHigh0.10-1.20 [facility] HospitalComment on above:Performed By: #### CDP, CP, LIP, TROPI, LIPRF, GLYHGB #### [address] [address] Sign Writer Hand: LIZZY Mcmanusonocytes/100 WBC (Bld)10 %Normal3-12Ohiohealth Berger HospitalComment on above:Performed By: #### CDP, CP, LIP, TROPI, LIPRF, GLYHGB #### [address] [address] Sign Writer Hand: Brandon Anaya MDNeutrophil (Seg)65 %Beruqb43-20ZvvpuOhiohealth Berger HospitalComment on above:Performed By: #### CDP, CP, LIP, TROPI, LIPRF, GLYHGB #### [facility] [address] [place] [phone] Sign Writer Hand: Brandon Anaya MDNRBC Automated0.0 per 100 WBCNormal0.0Ohiohealth Berger HospitalComment on above:Performed By: #### CDP, CP, LIP, TROPI, LIPRF, GLYHGB #### [address] [address] Sign Writer Hand: Nadeem Mcmanus mean volume (Bld) [Entitic vol]10.5 fL Normal8.1-13.5Ohiohealth Berger HospitalComment on above:Performed By: #### CDP, CP, LIP, TROPI, LIPRF, GLYHGB #### [address] [address] Sign Writer Hand: Geremias Mcmanustemariluz (Bld) [#/Vol]210 10*3/qMGljbsy260-539 [facility] HospitalComment on above:Performed By: #### CDP, CP, LIP, TROPI, LIPRF, GLYHGB #### [address] [address] Sign Writer Hand: RICHA Mcmanus (Bld) [#/Vol]4.87 10*6/uLNormal3.95-5.11 [facility] HospitalComment on above:Performed By: #### CDP, CP, LIP, TROPI, LIPRF, GLYHGB #### [address] [address] Sign Writer Hand: RICHA Mcmanus morphology finding Nom (Bld)ANISOCYTOSIS PRESENTNormalOhiohealth Berger HospitalComment on above:Performed By: #### CDP, CP, LIP, TROPI, LIPRF, GLYHGB #### [address] [address] Sign Writer Hand: LUCIAN Mcmanus (Bld) [#/Vol]12.3 10*3/uLHigh3.5-11.3MWashington HospitalComment on above:Performed By: #### CDP, CP, LIP, TROPI, LIPRF, GLYHGB #### [address] [address] Sign Writer Hand: Gustabo Mcmanus PerformedNOT REPORTEDOhioHealth O'Bleness HospitalComment on above:Performed By: #### CDP, CP, LIP, TROPI, LIPRF, GLYHGB #### [facility] [place] [address] Sign Writer Hand: Bon Mcmanus (Bld) [#/Vol]NOT REPORTEDNoFlower HospitalComment on above:Performed By: #### CDP, CP, LIP, TROPI, LIPRF, GLYHGB #### [facility] [place] [address] Sign Writer Hand: LUCIAN Mcmanus MorphologyNOT REPORTEDOhioHealth O'Bleness HospitalComment on above:Performed By: #### CDP, CP, LIP, TROPI, LIPRF, GLYHGB #### [facility] [place] [address] Sign Writer Hand: Yane Mcmanusgnesiumon [id number] [Mass/Vol]2.2 mg/dLNormal1.6-2.6Mercy Herrick CampusComment on above:Performed By: #### CDP, CP, LIP, TROPI, LIPRF, GLYHGB #### [facility] [place] [address] Sign Writer Hand: Brandon Anaya MDMagnesium [Mass/Vol]2.2 mg/dL1.6 - 2.6 mg/dL [facility], KYPOC Glucose Fingerstickon [id number] [Mass/Vol]121 mg/aSKjev41 - 105 mg/dLMount St. Mary Hospital, KYInterpretation and review of laboratory resultsAbnormJoint Township District Memorial Hospital, KYGlucose [Mass/Vol]100 mg/dL65 - 105 mg/dLMount [facility]. [facility], KYGlucose [Mass/Vol]104 mg/dL65 - 105 mg/dLMill[place], KYGlucose [Mass/Vol]123 mg/mBIbcj59 - 105 mg/dLMill[place], [place] Interpretation and review of laboratory resultsAbnoHunter, [place] Venous Blood Gaseson [id number] Temp.37.0Ohio[facility] O'Bleness HospitalComment on above:Performed By: #### CDP, CP, LIP, TROPI, LIPRF, GLYHGB #### [facility] [address] [place] [phone] Sign Writer Hand: NEHAL Mcmanushighline community hospital specialty centerlidia Hgb1.3 %Normal0-5Ohio[facility] Berger HospitalComment on above:Result Comment: Reference Range: Non-Smokers 0-2% Average Smoker 2-4% Heavy Smoker <10%Performed By: #### CDP, CP, LIP, TROPI, LIPRF, GLYHGB #### [facility] [address] [place] [phone] Sign Writer Hand: Brandon Anaya MDFIO2ROOM Community Regional Medical CenterComment on above:Performed By: #### CDP, CP, LIP, TROPI, LIPRF, GLYHGB #### [facility] [address] [place] [phone] Sign Writer Hand: Brandon Anaya MDHCO3 (Bld) [Moles/Vol]28.4 mmol/SCznnix29-90 [facility] HospitalComment on above:Performed By: #### CDP, CP, LIP, TROPI, LIPRF, GLYHGB #### [facility] [address] [place] [address] Sign Writer Hand: Brandon Anaya MDOxygen (Bld) [Partial pressure]41.1 mm[Hg]Normal 30-50Ohio[facility] Berger HospitalComment on above:Performed By: #### CDP, CP, LIP, TROPI, LIPRF, GLYHGB #### [facility] [address] [place] [address] Sign Writer Hand: Brandon Anaya MDOxygen saturation in Blood78.1 %Iiizpi74.0-85.0 [facility] Berger HospitalComment on above:Performed By: #### CDP, CP, LIP, TROPI, LIPRF, GLYHGB #### [address] [address] Sign Writer Hand: Bladimir McmanusCO242.5Pdarqz16-11AcnxhOhiohealth Berger HospitalComment on above:Performed By: #### CDP, CP, LIP, TROPI, LIPRF, GLYHGB #### [address] [phone] Sign Writer Hand: Brandon Anaya [facility] (Bld)7.439 [pH]High7.320-7.420[facility] Berger HospitalComment on above:Performed By: #### CDP, CP, LIP, TROPI, LIPRF, GLYHGB #### [address] [address] Sign Writer Hand: BLADIMIR Mcmanusositive Base Excess4.2 mmol/LHigh0.0-2.0[facility] Berger HospitalComment on above:Performed By: #### CDP, CP, LIP, TROPI, LIPRF, GLYHGB #### [address] [address] Sign Writer Hand: Lalita Mcmanus TestNOT REPORTEDNormalOhiohealth Berger HospitalComment on above:Performed By: #### CDP, CP, LIP, TROPI, LIPRF, GLYHGB #### [address] [address] Sign Writer Hand: LIZZY McmanusethemoglobinNOT REPORTEDNormal0.0-1.5[facility] Berger HospitalComment on above:Performed By: #### CDP, CP, LIP, TROPI, LIPRF, GLYHGB #### [facility] [address] [place] [address] Sign Writer Hand: LIZZY McmanusodeNOT REPORTEDNormalOhiohealth Berger HospitalComment on above:Performed By: #### CDP, CP, LIP, TROPI, LIPRF, GLYHGB #### [facility] [address] [place] [address] Sign Writer Hand: Brandon Anaya MDNegative Base ExcessNOT REPORTEDNormal0.0-2.0 [facility] Berger HospitalComment on above:Performed By: #### CDP, CP, LIP, TROPI, LIPRF, GLYHGB #### [facility] [address] [place] [phone] Sign Writer Hand: Brandon Anaya MDNotification TimeNOT REPORTEDNormalOhiohealth Berger HospitalComment on above:Performed By: #### CDP, CP, LIP, TROPI, LIPRF, GLYHGB #### [facility] [address] [place] [phone] Sign Writer Hand: Brandon Anaya MDNotification:NOT REPORTEDNormalOhiohealth Berger HospitalComment on above:Performed By: #### CDP, CP, LIP, TROPI, LIPRF, GLYHGB #### [facility] [address] [place] [address] Sign Writer Hand: Brandon Anaya MDO2 Device/Flow/%NOT REPORTEDNormalOhiohealth Berger HospitalComment on above:Performed By: #### CDP, CP, LIP, TROPI, LIPRF, GLYHGB #### [facility] [address] [place] [address] Sign Writer Hand: Brandon Anaya MDOxyhemoglobinNOT AGRMOLAWRakevv51.0-98.0[facility] Berger HospitalComment on above:Performed By: #### CDP, CP, LIP, TROPI, LIPRF, GLYHGB #### [facility] [address] [place] [address] Sign Writer Hand: BLADIMIR Mcmanusco2 Adj'd for Temp.NOT FZMVPWUJKfvtby54-50RwxjnOhiohealth Berger HospitalComment on above:Performed By: #### CDP, CP, LIP, TROPI, LIPRF, GLYHGB #### [facility] [address] [place] [address] Sign Writer Hand: JOHANA Mcmanus/CPAPNOT REPORTEDNormalOhiohealth Berger HospitalComment on above:Performed By: #### CDP, CP, LIP, TROPI, LIPRF, GLYHGB #### [facility] [address] [place] [address] Sign Writer Hand: Bladimir Mcmanus Adjst'd for Temp.NOT REPORTEDNormal 7.320-7.420Ohio[facility] Berger HospitalComment on above:Performed By: #### CDP, CP, LIP, TROPI, LIPRF, GLYHGB #### [facility] [address] [place] [address] Sign Writer Hand: Bladimir McmanusO2 Adj'd for Temp.NOT XGZKSADITwohln38-98KwxhdOhiohealth Berger HospitalComment on above:Performed By: #### CDP, CP, LIP, TROPI, LIPRF, GLYHGB #### [facility] [address] [place] [address] Sign Writer Hand: ROXIE Mcmanus REPORTEDNormalOhiohealth Berger HospitalComment on above:Performed By: #### CDP, CP, LIP, TROPI, LIPRF, GLYHGB #### [facility] [address] [place] [phone] Sign Writer Hand: MDPt. Mari[place] PositionNOT REPORTEDNormalOhiohealth Berger HospitalComment on above:Performed By: #### CDP, CP, LIP, TROPI, LIPRF, GLYHGB #### [facility] [address] [place] [address] Sign Writer Hand: Shannan Mcmanus RateNOT REPORTEDNormalMercy Herrick CampusComment on above:Performed By: #### CDP, CP, LIP, TROPI, LIPRF, GLYHGB #### [facility] [address] [place] [address] Sign Writer Hand: Cooper Mcmanus DrawnNOT REPORTEDNormalMercy Herrick CampusComment on above:Performed By: #### CDP, CP, LIP, TROPI, LIPRF, GLYHGB #### [facility] [address] [place] [address] Sign Writer Hand: Perico Mcmanus for RespiratoryNOT REPORTEDNormalMercy Herrick CampusComment on above:Performed By: #### CDP, CP, LIP, TROPI, LIPRF, GLYHGB #### [facility] [address] [place] [address] Sign Writer Hand: Orlin Mcmanus HbNOT SSCSQKAOHclkwi37.0-16.0[facility] Herrick CampusComment on above:Performed By: #### CDP, CP, LIP, TROPI, LIPRF, GLYHGB #### [facility] [address] [place] [address] Sign Writer Hand: Orlin Mcmanus RateNOT REPORTEDNormalMercy Herrick CampusComment on above:Performed By: #### CDP, CP, LIP, TROPI, LIPRF, GLYHGB #### [facility] [address] [place] [address] Sign Writer Hand: Brandon Anaya MDVTSONIA REPORTEDNormalMercy Herrick CampusComment on above:Performed By: #### CDP, CP, LIP, TROPI, LIPRF, GLYHGB #### [facility] [address] [place] [address] Sign Writer Hand: Xochilt Mcmanus 41-42-2058Rmxwich:NOT REPORTED [facility]leness HospitalComment on above:Performed By: #### CDP, CP, LIP, TROPI, LIPRF, GLYHGB #### [facility] [address] [place] [address] [phone] Sign Writer Hand: Josh Mcmanus Metab w/rfx MGon 15-97-9959Zgtajhgtc [Moles/Vol]3.3 mmol/LLow3.7-5.3[facility] Herrick CampusComment on above: Performed By: #### CDP, CP, LIP, TROPI, LIPRF, GLYHGB #### [facility] [address] [place] [phone] Sign Writer Hand: Brandon Anaya MD(cont.)[facility] Comment on above:Result Comment: Average GFR for 70 or more years old: 75 mL/min/1.73sq m Chronic Kidney Disease: <60 mL/min/1.73sq m Kidney failure: <15 mL/min/1.73sq m eGFR calculated using average adult body mass. Additional eGFR calculator available at: http://www.[employer]/multiple_crcl_2012.htmPerformed By: #### CDP, CP, LIP, TROPI, LIPRF, GLYHGB #### [facility] [address] [place] [address] Sign Writer Hand: James Mcmanus gap [Moles/Vol]12 mmol/LNormal9-17[facility] Berger HospitalComment on above:Performed By: #### CDP, CP, LIP, TROPI, LIPRF, GLYHGB #### [facility] [address] [place] [address] [phone] Sign Writer Hand: NEHAL Mcmanusalcium [Mass/Vol]8.6 mg/dLNormal8.6-10.4[facility] Berger HospitalComment on above:Performed By: #### CDP, CP, LIP, TROPI, LIPRF, GLYHGB #### [facility] [address] [place] [phone] Sign Writer Hand: NEHAL Mcmanushloride [Moles/Vol]94 mmol/ZRki09-844QvljpOhiohealth Berger HospitalComment on above:Performed By: #### CDP, CP, LIP, TROPI, LIPRF, GLYHGB #### [address] [address] Sign Writer Hand: Brandon Anaya MDCO2 [Moles/Vol]26 mmol/DLmyijo77-91ZnwzbOhiohealth Berger HospitalComment on above:Performed By: #### CDP, CP, LIP, TROPI, LIPRF, GLYHGB #### [address] [address] Sign Writer Hand: NEHAL Mcmanusreatinine [Mass/Vol]0.46 mg/dLLow0.50-0.90Ohio[facility] Berger HospitalComment on above:Performed By: #### CDP, CP, LIP, TROPI, LIPRF, GLYHGB #### [address] [address] Sign Writer Hand: Brandon Anaya MDGFR, Amer>60Normal>60[facility] Berger HospitalComment on above:Performed By: #### CDP, CP, LIP, TROPI, LIPRF, GLYHGB #### [facility] [address] [place] [phone] Sign Writer Hand: Brandon Anaya MDGFR,non Amer>60Normal>60[facility] Berger HospitalComment on above:Performed By: #### CDP, CP, LIP, TROPI, LIPRF, GLYHGB #### [facility] [address] [place] [address] [phone] Sign Writer Hand: Brandon Anaya MDGlucose [Mass/Vol]136 mg/yHFjzs49-52KsxkeWashington HospitalComment on above:Performed By: #### CDP, CP, LIP, TROPI, LIPRF, GLYHGB #### [facility] [place] [address] Sign Writer Hand: FABIANA Mcmanusodium [Moles/Vol]132 mmol/RZnx249-078VrpavOhiohealth Berger HospitalComment on above:Performed By: #### CDP, CP, LIP, TROPI, LIPRF, GLYHGB #### [facility] [address] [place] [phone] Sign Writer Hand: Brandon Anaya MDUrea nitrogen [Mass/Vol]16 mg/dLNormal8-23[facility] Berger HospitalComment on above:Performed By: #### CDP, CP, LIP, TROPI, LIPRF, GLYHGB #### [facility] [address] [place] [phone] Sign Writer Hand: RADHA Mcmanus/CRE RatioNOT REPORTEDNormal9-20[facility] Berger HospitalComment on above:Performed By: #### CDP, CP, LIP, TROPI, LIPRF, GLYHGB #### [facility] [address] [place] [address] Sign Writer Hand: FABIANA Mcmanustaging:NOT REPORTEDNormalOhiohealth Berger HospitalComment on above:Performed By: #### CDP, CP, LIP, TROPI, LIPRF, GLYHGB #### [facility] [address] [place] [phone] Sign Writer Hand: Josh Mcmanus Metabolic Panel w/ Reflex to MGon 31-56-0090Ovwtw gap [Moles/Vol]12 mmol/L9 - 17 mmol/LMercy Health- [place], KYBun/Cre RatioNOT REPORTEDMer Health- [place], KYCalcium [Mass/Vol]8.6 mg/dL8.6 - 10.4 mg/dLMercy Health- [place], KYChloride [Moles/Vol]94 mmol/LLow98 - 107 mmol/LMercy Health- [place], KYCO2 [Moles/Vol]26 mmol/L20 - 31 mmol/LMSumma Health [facility], [place] Creatinine [Mass/Vol]0.46 mg/dLLow0.5 - 0.9 mg/dLMount St. [facility] Hospital, KYGFR >60>60 mL/minMount St. Mary Hospital, KYGFR Non->60>60 mL/min [facility], KYGFR/1.73 sq M predicted among non-blacks MDRD (S/P/Bld) [Vol rate/Area][facility], KYComment on above:Average GFR for 70 or more years old: 75 mL/min/1.73sq m Chronic Kidney Disease: <60 mL/min/1.73sq m Kidney failure: <15 mL/min/1.73sq m eGFR calculated using average adult body mass. Additional eGFR calculator available at: http://www.[employer]/multiple_crcl_2012.htm GFR/1.73 sq M predicted among non-blacks MDRD (S/P/Bld) [Vol rate/Area]NOT REPORTEDMount St. [facility] Hospital, KYGlucose [Mass/Vol]136 mg/yOCfeh33 - 99 mg/dLMount St. Mary Hospital, KYInterpretation and review of laboratory resultsAbnormalMount St. Mary Hospital, KYPotassium [Moles/Vol]3.3 mmol/LLow3.7 - 5.3 mmol/[facility], KYSodium [Moles/Vol]132 mmol/AZgg919 - 144 mmol/[facility], KYUrea nitrogen [Mass/Vol]16 mg/dL8 - 23 mg/dLMount St. Mary Hospital, KYCBC auto differential on [id number] (Bld) [#/Vol]0.04 10*3/uLMount St. Mary Hospital, [place] Basophils/100 WBC (Bld)0 %0 - 2 %[facility], KYDifferential TypeNOT REPORTEDMount St. [facility], KYEosinophils (Bld) [#/Vol]10*3/uLMount St. Mary Hospital, [place] Eosinophils/100 WBC (Bld)0 %Low1 - 4 %[facility], KYErythrocyte distribution width (RBC) [Ratio]14.7 %High11.8 - 14.4 %[place], [place] Hematocrit (Bld) [Volume fraction]40.5 %36.3 - 47.1 %[place], [place] Hemoglobin (Bld) [Mass/Vol]12.7 g/dL11.9 - 15.1 g/dLMillheim, KYImmature granulocytes (Bld) [#/Vol]0.11 10*3/[facility], MEImmature granulocytes (Bld) [#/Vol]1 %Fjth8MhancMillheim, KYInterpretation and review of laboratory resultsAbnormalMount St. Mary Hospital, MELymphocytes (Bld) [#/Vol]1.50 10*3/[facility], CLARALymphocytes/100 WBC (Bld)12 %Low24 - 43 %[place], KYMCH (RBC) [Entitic mass]29.4 pg25.2 - 33.5 pgMillheim, [place] MCHC (RBC) [Mass/Vol]31.4 g/dL28.4 - 34.8 g/dLMillheim, KYMCV (RBC) [Entitic vol]93.8 fL82.6 - 102.9 fLKettering Health [facility] CLARAMonocytes (Bld) [#/Vol] 0.87 10*3/[facility], CLARAMonocytes/100 WBC (Bld)7 %3 - 12 %[place], KYPlatelet mean volume (Bld) [Entitic vol]10.7 fL8.1 - 13.[address] Hospital, KYPlatelets (Bld) [#/Vol]196 10*3/[facility], KYPlatelets (Bld) [#/Vol]NOT REPORTEDMill[place], KYRBC (Bld) [#/Vol]4.32 10*6/uL3.95 - 5.11 m/[facility], MERBC morphology finding Nom (Bld)ANISOCYTOSIS PRESENT [facility], MESegmented neutrophils/100 WBC (Bld)79 %High36 - 65 %[place], KYSe Absolute9.64HighLake County [facility] (Bld) [#/Vol]12.2 10*3/uLHighLake County Memorial Hospital [facility] (Bld) [#/Vol]0.0 10*3/uL0.[address] [facility], [facility] MorphologyNOT REPORTEDMount St. [facility], MECB with Diffon [id number]. Basophil0.04 k/uLNormal0.00-0.20[facility] Comment on above:Performed By: #### CDP, CP, LIP, TROPI, LIPRF, GLYHGB #### [employer] [address] [place] [address] Sign Writer Hand: MDAbs. MariettaImm.Granulocyte0.11 k/uLNormal0.00-0.30Ohio[facility] Berger HospitalComment on above:Performed By: #### CDP, CP, LIP, TROPI, LIPRF, GLYHGB #### [employer] [address] [place] [phone] Sign Writer Hand: Marie Mcmanus.Neutrophil (Seg)9.64 k/uLHigh1.50-8.10Ohio[facility] Berger HospitalComment on above:Performed By: #### CDP, CP, LIP, TROPI, LIPRF, GLYHGB #### [facility] [address] [place] [phone] Sign Writer Hand: Brandon Anaya MDBasophils/100 WBC (Bld)0 %Normal0-2MWashington HospitalComment on above:Performed By: #### CDP, CP, LIP, TROPI, LIPRF, GLYHGB #### [facility] [address] [place] [phone] Sign Writer Hand: Brandon Anaya MDEosinophils (Bld) [#/Vol]10*3/uLNormal0.00-0.44 [facility] HospitalComment on above:Performed By: #### CDP, CP, LIP, TROPI, LIPRF, GLYHGB #### [facility] [address] [place] [address] Sign Writer Hand: Brandon Anaya MDEosinophils/100 WBC (Bld)0 %Low1-4[facility] Berger HospitalComment on above:Performed By: #### CDP, CP, LIP, TROPI, LIPRF, GLYHGB #### [facility] [address] [place] [address] Sign Writer Hand: Brandon Anaya MDErythrocyte distribution width (RBC) [Ratio]14.7 %High11.8-14.4Ohio[facility] Berger HospitalComment on above:Performed By: #### CDP, CP, LIP, TROPI, LIPRF, GLYHGB #### [place] [address] Sign Writer Hand: Brandon Anaya MDHematocrit (Bld) [Volume fraction]40.5 %Normal 36.3-47.1MWashington HospitalComment on above:Performed By: #### CDP, CP, LIP, TROPI, LIPRF, GLYHGB #### [facility] [address] [place] [address] Sign Writer Hand: Brandon Anaya MDHemoglobin (Bld) [Mass/Vol]12.7 g/dLNormal 11.9-15.1MWashington HospitalComment on above:Performed By: #### CDP, CP, LIP, TROPI, LIPRF, GLYHGB #### [facility] [address] [place] [address] Sign Writer Hand: Brandon Anaya MDImmature granulocytes (Bld) [#/Vol]1 %Jwww4QomauOhiohealth Berger HospitalComment on above:Performed By: #### CDP, CP, LIP, TROPI, LIPRF, GLYHGB #### [facility] [address] [place] [address] Sign Writer Hand: Brandon Anaya MDLymphocytes (Bld) [#/Vol]1.50 10*3/uLNormal 1.10-3.70[facility] Berger HospitalComment on above:Performed By: #### CDP, CP, LIP, TROPI, LIPRF, GLYHGB #### [address] [address] Sign Writer Hand: Kortney Mcmanusmphocytes/100 WBC (Bld)12 %Tbk51-06WephtOhiohealth Berger HospitalComment on above:Performed By: #### CDP, CP, LIP, TROPI, LIPRF, GLYHGB #### [address] [phone] Sign Writer Hand: LIZZY McmanusCH (RBC) [Entitic mass]29.4 twVypatj59.2-33.5 [facility] HospitalComment on above:Performed By: #### CDP, CP, LIP, TROPI, LIPRF, GLYHGB #### [address] [address] Sign Writer Hand: LIZZY McmanusCHC (RBC) [Mass/Vol]31.4 g/fPHghdbe51.4-34.8 [facility] HospitalComment on above:Performed By: #### CDP, CP, LIP, TROPI, LIPRF, GLYHGB #### [facility] [address] [place] [phone] Sign Writer Hand: LIZZY McmanusCV (RBC) [Entitic vol]93.8 hWTpwepz18.6-102.9 [facility] HospitalComment on above:Performed By: #### CDP, CP, LIP, TROPI, LIPRF, GLYHGB #### [facility] [address] [place] [address] Sign Writer Hand: Brandon Madoff, MDMonocytes (Bld) [#/Vol]0.87 10*3/uLNormal 0.10-1.20[facility] Berger HospitalComment on above:Performed By: #### CDP, CP, LIP, TROPI, LIPRF, GLYHGB #### [facility] [address] [place] [address] Sign Writer Hand: Brandon Anaya MDMonocytes/100 WBC (Bld)7 %Normal3-12Ohio[facility] Berger HospitalComment on above:Performed By: #### CDP, CP, LIP, TROPI, LIPRF, GLYHGB #### [address] [address] Sign Writer Hand: Shakir Mcmanus (Seg)79 %Hiiy16-07LfoznOhiohealth Berger HospitalComment on above:Performed By: #### CDP, CP, LIP, TROPI, LIPRF, GLYHGB #### [facility] [address] [place] [address] Sign Writer Hand: Brandon Anaya MDNRBC Automated0.0 per 100 WBCNormal0.0Ohio[facility] Berger HospitalComment on above:Performed By: #### CDP, CP, LIP, TROPI, LIPRF, GLYHGB #### [facility] [address] [place] [address] Sign Writer Hand: Nadeem Mcmanus mean volume (Bld) [Entitic vol]10.7 fL Normal8.1-13.5Ohio[facility] Berger HospitalComment on above:Performed By: #### CDP, CP, LIP, TROPI, LIPRF, GLYHGB #### [facility] [address] [place] [address] Sign Writer Hand: Geremias Mcmanustemariluz (Bld) [#/Vol]196 10*3/rGSepxbv268-098 [facility] HospitalComment on above:Performed By: #### CDP, CP, LIP, TROPI, LIPRF, GLYHGB #### [facility] [address] [place] [phone] Sign Writer Hand: RICHA Mcmanus (Bld) [#/Vol]4.32 10*6/uLNormal3.95-5.11 [facility] HospitalComment on above:Performed By: #### CDP, CP, LIP, TROPI, LIPRF, GLYHGB #### [facility] [address] [place] [phone] Sign Writer Hand: RICHA Mcmanus morphology finding Nom (Bld)ANISOCYTOSIS PRESENTrmalOhiohealth Berger HospitalComment on above:Performed By: #### CDP, CP, LIP, TROPI, LIPRF, GLYHGB #### [facility] [address] [place] [phone] Sign Writer Hand: LUCIAN Mcmanus (Bld) [#/Vol]12.2 10*3/uLHigh3.5-11.3MWashington HospitalComment on above:Performed By: #### CDP, CP, LIP, TROPI, LIPRF, GLYHGB #### [facility] [address] [place] [address] 15052 Sign Writer Hand: Gustabo Mcmanus PerformedNOT REPORTEDNormalMercy Herrick CampusComment on above:Performed By: #### CDP, CP, LIP, TROPI, LIPRF, GLYHGB #### [facility] [address] [place] [address] [phone] Sign Writer Hand: Bon Mcmanus (Bld) [#/Vol]NOT REPORTEDNormalMercy Herrick CampusComment on above:Performed By: #### CDP, CP, LIP, TROPI, LIPRF, GLYHGB #### [facility] [address] [place] [address]208 Sign Writer Hand: LUCIAN Mcmanus MorphologyNOT REPORTEDNormalOhiohealth Berger HospitalComment on above:Performed By: #### CDP, CP, LIP, TROPI, LIPRF, GLYHGB #### [facility] [address] [place], [place] [phone] Sign Writer Hand: Brandon Anaya, MDMagnesiumon [id number] [Mass/Vol]2.2 mg/dLNormal1.6-2.6Mercy Herrick CampusComment on above:Performed By: #### CDP, CP, LIP, TROPI, LIPRF, GLYHGB #### [facility] [address] [place], [place] [phone] Sign Writer Hand: Brandon Charlesindy, MDMagnesium [Mass/Vol]2.2 mg/dL1.6 - 2.6 mg/dL [facility], MEPOC Glucose Fingerstickon 20-02-3995Zfspaok [Mass/Vol]117 mg/lJHwwy24 - 105 mg/dLMount St. Mary Hospital, KYInterpretation and review of laboratory resultsAbnoNewark Hospital, KYGlucose [Mass/Vol]115 mg/kXOtwk26 - 105 mg/dLMount St. Mary Hospital, KYInterpretation and review of laboratory results AbnormalMount St. Mary Hospital, KYGlucose [Mass/Vol]123 mg/gXFoev26 - 105 mg/dLMount St. [facility], MEInterpretation and review of laboratory resultsAbnoNewark Hospital, KYGlucose [Mass/Vol]117 mg/dBPytk36 - 105 mg/dLMount [facility]. [facility], [place] Interpretation and review of laboratory resultsAbFlower Hospital, [place] URINALYSIS WITH MICROSCOPICon [id number], UANOT REPORTEDNoneMeOhioHealth Mansfield Hospital- [place], KYBacteria, UANOT REPORTEDNoneMeOhioHealth Mansfield Hospital- [place], KYBilirubin Urine NegativeNEGATIVEMount St. [facility], KYCasts UA0 TO 2 HYALINE Reference range defined for non-centrifuged specimen.[facility], KYColor, UAYELLOWYELLOW [facility], KYCrystals, UANOT REPORTEDNone /HPFMercy Health- [place], [place] Epithelial Cells UA2 TO 5[facility]- [place], KYGlucose, UrNegativeNEGATIVEMercy Health- [place], KYInterpretation and review of laboratory resultsAbnormalMercy Health- [place], KYKetones Ql (U)SMALLAbnormalNEGATIVEMercy Health- [place], KYLeukocyte esterase Test strip Ql (U)NegativeNEGATIVEMercy Health- [place], KYMucus, UANOT REPORTEDNoneMercy Health- [place], KYNitrite, UrineNegativeNEGATIVEMercy Health- [place], KYOther Observations UANOT REPORTEDNOT REQ.[facility]- [place], KYpH, UA8.5High [facility]- [place], KYProtein (U) [Mass/Vol]NegativeNEGATIVEMercy Health- [place], [place] RBC (U) [#/Vol]TOO NUMEROUS TO COUNTTrihealth Bethesda Butler Hospital Health- [place], KYComment on above: Reference range defined for non-centrifuged specimen.Renal Epithelial, UANOT REPORTED0 /HPFMercy Health- [place], KYSpecific [place], UA1.011[facility]- [place], [place] Trichomonas, UANOT REPORTEDNoneMercy Health- [place], KYTurbidity UATURBIDAbnormal CLEARMercy Health- [place], KYUrine HgbNegativeNEGATIVEMercy Health- [place], [place] Urobilinogen, UrineNormalNormalMercy Health- [place], KYWBC, UA0 TO 2[facility]- [place], KYYeast, UANOT REPORTEDNoneMercy Health- [place], [place]-[facility]- [place], [place] Urinalysis w/ Microon 10-12-2019-----NormalOhiohealth Berger Hospital Comment on above:Performed By: #### CDP, CP, LIP, TROPI, LIPRF, GLYHGB #### [employer] [address] [place] [address] Sign Writer Hand: Rafi Mcmanustoacetic Acid,UrSMALLAbnormalNEGOhiohealth Berger HospitalComment on above:Performed By: #### CDP, CP, LIP, TROPI, LIPRF, GLYHGB #### [employer] [address] [place] [address] Sign Writer Hand: Brandon Anaya MDBilirubin, SemiQt,UrNegativeNormalNEGOhiohealth Berger HospitalComment on above:Performed By: #### CDP, CP, LIP, TROPI, LIPRF, GLYHGB #### [facility] [address] [place] [phone] Sign Writer Hand: NEHAL Mcmanusasts LM.LPF (Urine sed) [#/Area]0 TO 2 HYALINE Normal0-8Ohio[facility] Berger HospitalComment on above:Result Comment: Reference range defined for non-centrifuged specimen.Performed By: #### CDP, CP, LIP, TROPI, LIPRF, GLYHGB #### [employer] [facility] [address] [place] [phone] Sign Writer Hand: NEHAL Mcmanusolor (U)YELLOWNormalYELMerSaint Agnes Medical CenterComment on above:Performed By: #### CDP, CP, LIP, TROPI, LIPRF, GLYHGB #### [employer] [address] [place] [phone] Sign Writer Hand: Brandon Anaya MDEpithelial cells LM.HPF (Urine sed) [#/Area]2 TO 9Igyrqr8-5JqobnOhiohealth Berger HospitalComment on above:Performed By: #### CDP, CP, LIP, TROPI, LIPRF, GLYHGB #### [employer] [address] [place] [phone] Sign Writer Hand: Brnadon Anaya MDGlucose Ql (U)NegativeNormalNEGOhiohealth Berger HospitalComment on above:Performed By: #### CDP, CP, LIP, TROPI, LIPRF, GLYHGB #### [employer] [address] [place] [phone] Sign Writer Hand: Brandon Anaya MDHemoglobin, UrNegativeNormalNEGOhiohealth Berger HospitalComment on above:Performed By: #### CDP, CP, LIP, TROPI, LIPRF, GLYHGB #### [employer] [address] [place] [phone] Sign Writer Hand: Brandon Anaya MDLeukocyte esterase Test strip Ql (U)Negative NormalNEGOhiohealth Berger HospitalComment on above:Performed By: #### CDP, CP, LIP, TROPI, LIPRF, GLYHGB #### [address] [phone] Sign Writer Hand: Jessica Mcmanustrite,UrNegativeNormalNEGOhiohealth Berger HospitalComment on above:Performed By: #### CDP, CP, LIP, TROPI, LIPRF, GLYHGB #### [address] [phone] Sign Writer Hand: Brandon Anaya [facility] WestH (U)8.5 [pH]High5.0-8.0Ohiohealth Berger HospitalComment on above:Performed By: #### CDP, CP, LIP, TROPI, LIPRF, GLYHGB #### [address] [phone] Sign Writer Hand: Oanh Mcmanus Ql (U)NegativeNormalNEGOhiohealth Berger HospitalComment on above:Performed By: #### CDP, CP, LIP, TROPI, LIPRF, GLYHGB #### [address] [phone] Sign Writer Hand: Brandon Anaya MDRBC (U) [#/Vol]TOO NUMEROUS TO COUNTNormal0-4 Ohiohealth Berger HospitalComment on above:Result Comment: Reference range defined for non-centrifuged specimen.Performed By: #### CDP, CP, LIP, TROPI, LIPRF, GLYHGB #### [address] [phone] Sign Writer Hand: FABIANA Mcmanuspecific gravity (U) [Rel density]1.011Normal 1.005-1.030Ohiohealth Berger HospitalComment on above:Performed By: #### CDP, CP, LIP, TROPI, LIPRF, GLYHGB #### [facility] [address] [place] [phone] Sign Writer Hand: GODWIN McmanusurbidityTURBIDAbnormalCLEARMWashington HospitalComment on above:Performed By: #### CDP, CP, LIP, TROPI, LIPRF, GLYHGB #### [facility] [address] [place] [phone] Sign Writer Hand: Jackie Mcmanus,UrNormalNormalNORMOhiohealth Berger HospitalComment on above:Performed By: #### CDP, CP, LIP, TROPI, LIPRF, GLYHGB #### [facility] [address] [place] [phone] Sign Writer Hand: Brandon Anaya MDWBC (U) [#/Vol]0 TO 7Gxfmrz4-5CajpuOhiohealth Berger HospitalComment on above:Performed By: #### CDP, CP, LIP, TROPI, LIPRF, GLYHGB #### [address] [phone] Sign Writer Hand: Iwona Mcmanus sediment LM Ql (Urine sed)NOT REPORTED NormalProMedica Flower HospitalComment on above:Performed By: #### CDP, CP, LIP, TROPI, LIPRF, GLYHGB #### [facility] [address] [place] [phone] Sign Writer Hand: Brandon Anaya MDBamarah LM.HPF (Urine sed) [#/Area]NOT REPORTED NormalProMedica Flower HospitalComment on above:Performed By: #### CDP, CP, LIP, TROPI, LIPRF, GLYHGB #### [facility] [address] [place] [phone] Sign Writer Hand: Manjula Mcmanusstdamien LM Nom (Urine sed)NOT REPORTEDNormal NONEMerSt. Bernards Behavioral Health Hospitalent Medical CenterComment on above:Performed By: #### CDP, CP, LIP, TROPI, LIPRF, GLYHGB #### [facility] [address] [place] [phone] Sign Writer Hand: Brandon Anaya MDEpithelial, RenalNOT TTBXHIZFBhlhac0VfeygOhiohealth Berger HospitalComment on above:Performed By: #### CDP, CP, LIP, TROPI, LIPRF, GLYHGB #### [facility] [address] [place] [phone] Sign Writer Hand: Raquel Mcmanusus StrandsNOT REPORTEDrmalNONWyandot Memorial HospitalComment on above:Performed By: #### CDP, CP, LIP, TROPI, LIPRF, GLYHGB #### [facility] [address] [place] [phone] Sign Writer Hand: Brandon Anaya MDOther ObservationsNOT REPORTEDrmalNREQOhiohealth Berger HospitalComment on above:Performed By: #### CDP, CP, LIP, TROPI, LIPRF, GLYHGB #### [facility] [address] [place] [phone] Sign Writer Hand: Grant McmanushomonasNOT REPORTEDUniversity Hospitals Elyria Medical CenterComment on above:Performed By: #### CDP, CP, LIP, TROPI, LIPRF, GLYHGB #### [facility] [address] [place] [phone] Sign Writer Hand: Donna Mcmanus LM Ql (Urine sed)NOT REPORTEDrmalBANNER OCOTILLO MEDICAL CENTERE [facility] Berger HospitalComment on above:Performed By: #### CDP, CP, LIP, TROPI, LIPRF, GLYHGB #### [facility] [address] [place] [phone] Sign Writer Hand: CHRISTINE Mcmanus RENAL ARTERIAL DUPLEX COMPLETEon 10-12-2019 [facility] Vascular Renal Procedure Patient Name ALEX Date of Study 10/12/2019 SHAYY Date of 1945 Gender Female Age 74 year(s) Race Room Number 2015 Corporate ID [id number] # Patient Acct [id number] # MR # [id number] Interior Design Professor Celena Juarez RVT, RDMS Interpreting Jamison Galo Physician Referring Referring Physician DENYS MORRIS MD Nurse Practitioner Procedure Type of Study: Abdominal: Renal, Renal Artery Scan Bilateral. Patient Status:In Patient. Conclusions Summary Abdominal aortic aneurysm measuring 3.5 cm wasnoted. Hemodynamically significant stenosis of > 60% in [...] vascular disease->Aortic aneurysm ! !3.5 cm ! +-------- +----+--------+ - The patient's risk factor(s) include: dyslipidemia and arterial hypertension. Velocities are measured in cm/s ; Diameters are measured in cm Abdominal Aortic Flow + +----+---+ + --------+ !Location !PSV !EDV!AP Diam !Trans Diam ! + +----+---+ + + !Aorta Supra Renal !68.8! ! ! ! + +----+ ---+ + + Renal Duplex Measurements + ++-----+----+----+----++---+----+----+----+ [...] average kidney length is 10.75 cm.[facility] [place], [place], [place] Incoming Cardio Results From [facility]/ - 10/12/2019 7:54 PM EDT [facility] Vascular Renal Procedure Patient Name ALEX Date of Study 10/12/2019 SHAYY Date of 1945 Gender Female Age 74 year(s) Race Room Number 2015 Corporate ID [id number] # Patient Acct [id number] # MR # [id number] Interior Design Professor Celena Juarez RVT, MS Interpreting Jamison Galo Physician Referring Referring [...] average kidney length is 10.75 cm.[facility] [place], KYXR CHEST PORTABLEon [id number] CHEST PORTABLEEXAMINATION: ONE XRAY VIEW OF THE [...] by: Argentina Guzmán MD 10/11/19 Final resultNormalMercy Herrick CampusBasic Metab w/rfx MGon 10-11-2019(cont.)NormalMercy Herrick CampusComment on above:Result Comment: Average GFR for 70 or more years old: 75 mL/min/1.73sq m Chronic Kidney Disease: <60 mL/min/1.73sq m Kidney failure: <15 mL/min/1.73sq m eGFR calculated using average adult body mass. Additional eGFR calculator available at: http://www.bead [employer]/multiple_crcl_2012.htmPerformed By: #### CDP, CP, LIP, TROPI, LIPRF, GLYHGB #### [facility] [address] [place] [phone] Sign Writer Hand: Brandon Aanya MDAnion gap [Moles/Vol]15 mmol/LNormal9-17Ohiohealth Berger HospitalComment on above:Performed By: #### CDP, CP, LIP, TROPI, LIPRF, GLYHGB #### [facility] [address] [place] [phone] Sign Writer Hand: Brandon Anaya MDCalcium [Mass/Vol]9.2 mg/dLNormal8.6-10.4Ohiohealth Berger HospitalComment on above:Performed By: #### CDP, CP, LIP, TROPI, LIPRF, GLYHGB #### [facility] [address] [place] [phone] Sign Writer Hand: Brandon Anaya MDChloride [Moles/Vol]96 mmol/GIfc91-618VbyrbOhiohealth Berger HospitalComment on above:Performed By: #### CDP, CP, LIP, TROPI, LIPRF, GLYHGB #### [facility] [address] [place] [phone] Sign Writer Hand: Brandon Anaya MDCO2 [Moles/Vol]24 mmol/JHwslku75-19TgftxOhiohealth Berger HospitalComment on above:Performed By: #### CDP, CP, LIP, TROPI, LIPRF, GLYHGB #### [facility] [address] [place] [phone] Sign Writer Hand: Brandon Anaya MDCreatinine [Mass/Vol]0.55 mg/dLNormal0.50-0.90 Ohio[facility] Berger HospitalComment on above:Performed By: #### CDP, CP, LIP, TROPI, LIPRF, GLYHGB #### [facility] [address] [place] [phone] Sign Writer Hand: Brandon Madoff, MDGFR, Amer>60Normal>60Mer[facility] Herrick CampusComment on above:Performed By: #### CDP, CP, LIP, TROPI, LIPRF, GLYHGB #### [facility] [address] [place] [phone] Sign Writer Hand: Brandon Anaya MDGFR,non Amer>60Normal>60Mer[facility] Herrick CampusComment on above:Performed By: #### CDP, CP, LIP, TROPI, LIPRF, GLYHGB #### [facility] [address] [place] [address] [phone] Sign Writer Hand: Brandon Anaya MDGlucose [Mass/Vol]146 mg/hDZpdv31-31Zfsvt Herrick CampusComment on above:Performed By: #### CDP, CP, LIP, TROPI, LIPRF, GLYHGB #### [facility] [address] [place] [phone] Sign Writer Hand: BLADIMIR Mcmanusotassium [Moles/Vol]3.6 mmol/LLow3.7-5.3Mercy Herrick CampusComment on above:Performed By: #### CDP, CP, LIP, TROPI, LIPRF, GLYHGB #### [facility] [address] [place] [phone] Sign Writer Hand: FABIANA Mcmanusodium [Moles/Vol]135 mmol/PXrnmzr482-432WrvoiSaint Agnes Medical CenterComment on above:Performed By: #### CDP, CP, LIP, TROPI, LIPRF, GLYHGB #### [facility] [address] [place] [phone] Sign Writer Hand: Brandon Anaya MDUrea nitrogen [Mass/Vol]13 mg/dLNormal8-23MerSaint Agnes Medical CenterComment on above:Performed By: #### CDP, CP, LIP, TROPI, LIPRF, GLYHGB #### [facility] [address] [place] [address] [phone] Sign Writer Hand: RADHA Mcmanus/CRE RatioNOT REPORTEDNormal9-20Ohio[facility] Berger HospitalComment on above:Performed By: #### CDP, CP, LIP, TROPI, LIPRF, GLYHGB #### [facility] [address] [place], [place] [phone] Sign Writer Hand: FABIANA Mcmanustaging:NOT REPORTEDNormalOhiohealth Berger HospitalComment on above:Performed By: #### CDP, CP, LIP, TROPI, LIPRF, GLYHGB #### [facility] [address] [place], [place] [phone] Sign Writer Hand: Josh Mcmanus Metabolic Panel w/ Reflex to MGon [id number] gap [Moles/Vol]15 mmol/L9 - 17 mmol/LMmercy health [facility] Health- [place], KYBun/Cre RatioNOT REPORTEDMount St. Mary Hospital, KYCalcium [Mass/Vol]9.2 mg/dL8.6 - 10.4 mg/dLUc Health [place], KYChloride [Moles/Vol]96 mmol/LLow98 - 107 mmol/LMaultman orrville hospitaly Health- [place], KYCO2 [Moles/Vol]24 mmol/L20 - 31 mmol/LMaultman orrville hospitaly Health- [place], [place] Creatinine [Mass/Vol]0.55 mg/dL0.5 - 0.9 mg/dLMount St. Mary Hospital, KYGFR >60>60 mL/minUc Health [place], KYGFR Non->60>60 mL/min [facility], KYGFR/1.73 sq M predicted among non-blacks MDRD (S/P/Bld) [Vol rate/Area]NOT REPORTEDSelect [facility] [place], KYGFR/1.73 sq M predicted among non- blacks MDRD (S/P/Bld) [Vol rate/Area][facility] [place] InstrumentsHAWTHORN CHILDREN'S PSYCHIATRIC HOSPITAL, KYComment on above: Average GFR for 70 or more years old: 75 mL/min/1.73sq m Chronic Kidney Disease: <60 mL/min/1.73sq m Kidney failure: <15 mL/min/1.73sq m eGFR calculated using average adult body mass. Additional eGFR calculator available at: http://www.[employer]/multiple_crcl_2012.htm Glucose [Mass/Vol]146 mg/pGEprs00 - 99 mg/dLMount St. Mary Hospital, KYInterpretation and review of laboratory resultsAbnoMercy Health Defiance Hospital- [place], KYPotassium [Moles/Vol]3.6 mmol/LLow3.7 - 5.3 mmol/LMCleveland Clinic [place] [facility]- [place], KYSodium [Moles/Vol] 135 mmol/L135 - 144 mmol/LMCleveland Clinic [place] [facility]- [place], KYUrea nitrogen [Mass/Vol]13 mg/dL8 - 23 mg/dLMount St. Mary Hospital, KYCBC auto differentialon [id number] (Bld) [#/Vol]0.03 10*3/uLUc Health [place], KYBasophils/100 WBC (Bld)0 %0 - 2 %[facility], KYDifferential TypeNOT REPORTEDMount St. Mary Hospital, KYEosinophils (Bld) [#/Vol]10*3/uLUc Health [place], KYEosinophils/100 WBC (Bld)0 %Low1 - 4 %[facility], KYErythrocyte distribution width (RBC) [Ratio]14.3 %11.8 - 14.4 % [facility], KYHematocrit (Bld) [Volume fraction]43.6 %36.3 - 47.1 %[facility], KYHemoglobin (Bld) [Mass/Vol]13.7 g/dL11.9 - 15.1 g/dLMount St. Mary Hospital, KYImmature granulocytes (Bld) [#/Vol]1 %Dbhf3MokdnSelect Medical [facility], [place]- [place], KYImmature granulocytes (Bld) [#/Vol]0.07 10*3/uLSelect Medical [facility], [place]- [place], KYInterpretation and review of laboratory resultsAbnoUniversity Hospitals Parma [facility] [place], KYLymphocytes (Bld) [#/Vol]0.92 10*3/uLLowSelect Medical [facility], [place]- [place], KYLymphocytes/100 WBC (Bld)14 %Low24 - 43 %[place], KYMCH (RBC) [Entitic mass]29.1 pg25.2 - 33.5 pgMillheim, KYMCHC (RBC) [Mass/Vol]31.4 g/dL28.4 - 34.8 g/dLMillheim, [place] MCV (RBC) [Entitic vol]92.6 fL82.6 - 102.9 fLMillheim, KYMonocytes (Bld) [#/Vol]0.07 10*3/uLLowMount St. Mary Hospital, MEMonocytes/100 WBC (Bld)1 %Low3 - 12 % [place], KYPlatelet mean volume (Bld) [Entitic vol]10.6 fL8.1 - 13.5 fL [place], KYPlatelets (Bld) [#/Vol]NOT REPORTEDMillheim, [place] Platelets (Bld) [#/Vol]196 10*3/uLMount St. Mary Hospital, MERBC (Bld) [#/Vol]4.71 10*6/uL3.95 - 5.11 m/uLMount St. Mary Hospital, MERBC morphology finding Nom (Bld)NOT REPORTEDMillheim, KYSegmented neutrophils/100 WBC (Bld)84 %High36 - 65 % [place], KYSegs Absolute5.67[facility], MEWBC (Bld) [#/Vol]0.0 10*3/uL0.0 per 100 WBCMillheim, KYWBC (Bld) [#/Vol]6.8 10*3/[facility], MEWBC MorphologyNOT REPORTEDMillheim, KYCBC with Diffon [id number]. Basophil0.03 k/uLNormal0.00-0.20[facility] Comment on above:Performed By: #### CDP, CP, LIP, TROPI, LIPRF, GLYHGB #### [facility] [facility] [place] [address] Sign Writer Hand: Marie Mcmanus.Imm.Granulocyte0.07 k/uLNormal0.00-0.30Ohio[facility] Berger HospitalComment on above:Performed By: #### CDP, CP, LIP, TROPI, LIPRF, GLYHGB #### [facility] [address] [place] [phone] Sign Writer Hand: Marie Mcmanus.Neutrophil (Seg)5.67 k/uLNormal1.50-8.10 [facility] Berger HospitalComment on above:Performed By: #### CDP, CP, LIP, TROPI, LIPRF, GLYHGB #### [facility] [address] [place] [address] Sign Writer Hand: Brandon Anaya MDBasophils/100 WBC (Bld)0 %Normal0-2MWashington HospitalComment on above:Performed By: #### CDP, CP, LIP, TROPI, LIPRF, GLYHGB #### [facility] [address] [place] [phone] Sign Writer Hand: Brandon Anaya MDEosinophils (Bld) [#/Vol]10*3/uLNormal0.00-0.44 [facility] HospitalComment on above:Performed By: #### CDP, CP, LIP, TROPI, LIPRF, GLYHGB #### [address] [phone] Sign Writer Hand: MAU Mcmanusosinophils/100 WBC (Bld)0 %Low1-4Ohio[facility] Berger HospitalComment on above:Performed By: #### CDP, CP, LIP, TROPI, LIPRF, GLYHGB #### [facility] [address] [place] [phone] Sign Writer Hand: Brandon Anaya MDErythrocyte distribution width (RBC) [Ratio]14.3 %Ivqbbd16.8-14.4Ohio[facility] Berger HospitalComment on above:Performed By: #### CDP, CP, LIP, TROPI, LIPRF, GLYHGB #### [facility] [address] [place] [phone] Sign Writer Hand: Brandon Anaya MDHematocrit (Bld) [Volume fraction]43.6 %Normal 36.3-47.1MWashington HospitalComment on above:Performed By: #### CDP, CP, LIP, TROPI, LIPRF, GLYHGB #### [facility] [address] [place] [address] [phone] Sign Writer Hand: Brandon Anaya MDHemoglobin (Bld) [Mass/Vol]13.7 g/dLNormal 11.9-15.1MWashington HospitalComment on above:Performed By: #### CDP, CP, LIP, TROPI, LIPRF, GLYHGB #### [facility] [address] [place] [address] [phone] Sign Writer Hand: Brandon Anaya MDImmature granulocytes (Bld) [#/Vol]1 %Pieo5CuavqOhiohealth Berger HospitalComment on above:Performed By: #### CDP, CP, LIP, TROPI, LIPRF, GLYHGB #### [facility] [address] [place] [phone] Sign Writer Hand: Brandon Anaya MDLymphocytes (Bld) [#/Vol]0.92 10*3/uLLow 1.10-3.70Ohio[facility] Berger HospitalComment on above:Performed By: #### CDP, CP, LIP, TROPI, LIPRF, GLYHGB #### [facility] [address] [place] [phone] Sign Writer Hand: Kortney Mcmanusmphocytes/100 WBC (Bld)14 %Jry51-46RnbnnOhiohealth Berger HospitalComment on above:Performed By: #### CDP, CP, LIP, TROPI, LIPRF, GLYHGB #### [facility] [address] [place] [address] [phone] Sign Writer Hand: LIZZY McmanusCH (RBC) [Entitic mass]29.1 boFcilkw37.2-33.5 [facility] HospitalComment on above:Performed By: #### CDP, CP, LIP, TROPI, LIPRF, GLYHGB #### [address] [phone] Sign Writer Hand: LIZZY McmanusCHC (RBC) [Mass/Vol]31.4 g/uGAwtxxd08.4-34.8 [facility] HospitalComment on above:Performed By: #### CDP, CP, LIP, TROPI, LIPRF, GLYHGB #### [address] [phone] Sign Writer Hand: LIZZY McmanusCV (RBC) [Entitic vol]92.6 cYZeedir07.6-102.9 [facility] HospitalComment on above:Performed By: #### CDP, CP, LIP, TROPI, LIPRF, GLYHGB #### [address] [address] Sign Writer Hand: LIZZY Mcmanusonocytes (Bld) [#/Vol]0.07 10*3/uLLow0.10-1.20 [facility] HospitalComment on above:Performed By: #### CDP, CP, LIP, TROPI, LIPRF, GLYHGB #### [address] [phone] Sign Writer Hand: LIZZY Mcmanusonocytes/100 WBC (Bld)1 %Low3-12Ohio[facility] Berger HospitalComment on above:Performed By: #### CDP, CP, LIP, TROPI, LIPRF, GLYHGB #### [address] [phone] Sign Writer Hand: Davidson Mcmanusutrophil (Seg)84 %Icir72-93YstuhOhiohealth Berger HospitalComment on above:Performed By: #### CDP, CP, LIP, TROPI, LIPRF, GLYHGB #### [facility] [address] [place] [address] [phone] Sign Writer Hand: JOSEI Mcmanus Automated0.0 per 100 WBCNormal0.0Ohio[facility] Berger HospitalComment on above:Performed By: #### CDP, CP, LIP, TROPI, LIPRF, GLYHGB #### [facility] [address] [place] [phone] Sign Writer Hand: Nadeem Mcmanus mean volume (Bld) [Entitic vol]10.6 fL Normal8.1-13.5Ohiohealth Berger HospitalComment on above:Performed By: #### CDP, CP, LIP, TROPI, LIPRF, GLYHGB #### [facility] [address] [place] [address] [phone] Sign Writer Hand: Bon Mcmanus (Bld) [#/Vol]196 10*3/wXRghmvu658-103 [facility] HospitalComment on above:Performed By: #### CDP, CP, LIP, TROPI, LIPRF, GLYHGB #### [facility] [address] [place] [address] [phone] Sign Writer Hand: RICHA Mcmanus (Bld) [#/Vol]4.71 10*6/uLNormal3.95-5.11 [facility] HospitalComment on above:Performed By: #### CDP, CP, LIP, TROPI, LIPRF, GLYHGB #### [facility] [address] [place] [phone] Sign Writer Hand: LUCIAN Mcmanus (Bld) [#/Vol]6.8 10*3/uLNormal3.5-11.3MWashington HospitalComment on above:Performed By: #### CDP, CP, LIP, TROPI, LIPRF, GLYHGB #### [facility] [address] [place] [address] Sign Writer Hand: Gustabo Mcmanus Diff PerformedNOT REPORTEDNormalOhiohealth Berger HospitalComment on above:Performed By: #### CDP, CP, LIP, TROPI, LIPRF, GLYHGB #### [facility] [address] [place] [phone] Sign Writer Hand: BLADIMIR Mcmanuslatelets (Bld) [#/Vol]NOT REPORTEDNoFlower HospitalComment on above:Performed By: #### CDP, CP, LIP, TROPI, LIPRF, GLYHGB #### [facility] [address] [place] [address] [phone] Sign Writer Hand: RICHA Mcmanus morphology finding Nom (Bld)NOT REPORTED NormalOhiohealth Berger HospitalComment on above:Performed By: #### CDP, CP, LIP, TROPI, LIPRF, GLYHGB #### [facility] [address] [place] [address] [phone] Sign Writer Hand: LUCIAN Mcmanus MorphologyNOT REPORTEDOhioHealth O'Bleness HospitalComment on above:Performed By: #### CDP, CP, LIP, TROPI, LIPRF, GLYHGB #### [facility] [address] [place] [address] [phone] Sign Writer Hand: WENDY Mcmanus BRAIN W WO CONTRASTon [id number] BRAIN W WO CONTRASTEXAMINATION: MRI OF THE [...] Signed by: Chaitanya Sawyer MD 10/11/19 Final resultNormalMerGlendale [facility]ist [facility], [facility] Incoming Radiant Results From [facility]/Lab21s - 10/11/2019 3:07 PM EDT EXAMINATION: MRI [...] Small meningioma over the right frontal lobe. XplornetHAWTHORN CHILDREN'S [facility], WaveCheckVolume loss with chronic white matter microvascular ischemic change. Small meningioma over the right frontal lobe.XplornetHAWTHORN CHILDREN'[facility], [place] EXAMINATION: MRI OF THE BRAIN WITHOUT [...] The soft tissues demonstrate no acute abnormality. [facility], KYPOC Glucose Fingerstickon 31-10-2716Gcbtqsx [Mass/Vol]121 mg/mUBjsw62 - 105 mg/dLMount St. Mary Hospital, KYInterpretation and review of laboratory resultsAbFlower Hospital, KYGlucose [Mass/Vol]171 mg/yGVwbz46 - 105 mg/dLMount St. Mary Hospital, KYInterpretation and review of laboratory results AbnormalMount St. Mary Hospital, KYGlucose [Mass/Vol]127 mg/vZYayi37 - 105 mg/dLMount St. Mary Hospital, KYInterpretation and review of laboratory resultsAbFlower Hospital, KYGlucose [Mass/Vol]145 mg/rPZlmg71 - 105 mg/dLMount St. Mary Hospital, [place] Interpretation and review of laboratory resultsAbFlower Hospital, KYXR CHEST PORTABLEon [id number]: ONE XRAY VIEW OF THE CHEST 10/11/2019 10:45 pm COMPARISON: 06/27/2017 HISTORY: ORDERINGSYSTEM PROVIDED HISTORY: evaluate TECHNOLOGIST PROVIDED HISTORY: evaluate Reason for Exam: Upright p ortable Acuity: Unknown Type of Exam: Unknown FINDINGS: Cardiomediastinal silhouette is unchanged in size. Aortic atherosclerosis. No pulmonary consolidation, pleural effusion, or pneumothorax. No acute osseous abnormality. [facility] Mary HospitalRadha Mhpn Incoming Radiant Results From [facility]/Pacs - 10/11/2019 11:49 PM EDT EXAMINATION: ONE XRAY VIEW OF THE CHEST 10/11/2019 10:45 pm COMPARISON: 06/27/2017 HISTORY: ORDERING SYSTEM PROVIDED HISTORY: evaluate TECHNOLOGIST PROVIDED HISTORY: evaluate Reason for Exam: Upright portable Acuity: Unknown Type of Exam: Unknown FINDINGS: Cardiomediastinal silhouette is unchanged in size. Aortic atherosclerosis. No pulmonary consolidation, pleural effusion, or pneumothorax. No acute osseous abnormality. IMPRESSION: No acute cardiopulmonary abnormality. [facility] Mary HospitalSal acute cardiopulmonary abnormality.[facility] Mary HospitalCLARA Basic Metab w/rfx MGon 10-10-2019(cont.)[facility] Comment on above:Result Comment: Average GFR for 70 or more years old: 75 mL/min/1.73sq m Chronic Kidney Disease: <60 mL/min/1.73sq m Kidney failure: <15 mL/min/1.73sq m eGFR calculated using average adult body mass. Additional eGFR calculator available at: http://www.[employer]/multiple_crcl_2012.htmPerformed By: #### CDP, CP, LIP, TROPI, LIPRF, GLYHGB #### [employer] [address] [place] [phone] Sign Writer Hand: James Mcmanus gap [Moles/Vol]10 mmol/LNormal9-17[facility] HospitalComment on above:Performed By: #### CDP, CP, LIP, TROPI, LIPRF, GLYHGB #### [employer] [address] [place] [phone] Sign Writer Hand: Brandon Anaya MDCalcium [Mass/Vol]9.0 mg/dLNormal8.6-10.4[facility] Berger HospitalComment on above:Performed By: #### CDP, CP, LIP, TROPI, LIPRF, GLYHGB #### [address] [phone] Sign Writer Hand: NEHAL Mcmanushloride [Moles/Vol]97 mmol/QMex17-363CkvvuOhiohealth Berger HospitalComment on above:Performed By: #### CDP, CP, LIP, TROPI, LIPRF, GLYHGB #### [address] [address] Sign Writer Hand: Brandon Anaya MDCO2 [Moles/Vol]25 mmol/WJafssk53-70KeadoOhiohealth Berger HospitalComment on above:Performed By: #### CDP, CP, LIP, TROPI, LIPRF, GLYHGB #### [place] [address] Sign Writer Hand: NEHAL Mcmanusreatinine [Mass/Vol]0.50 mg/dLNormal0.50-0.90 [facility] HospitalComment on above:Performed By: #### CDP, CP, LIP, TROPI, LIPRF, GLYHGB #### [address] [phone] Sign Writer Hand: Brandon Anaya MDGFR, Amer>60Normal>60[facility] Berger HospitalComment on above:Performed By: #### CDP, CP, LIP, TROPI, LIPRF, GLYHGB #### [address] [phone] Sign Writer Hand: Brandon Anaya MDGFR,non Amer>60Normal>60[facility] Berger HospitalComment on above:Performed By: #### CDP, CP, LIP, TROPI, LIPRF, GLYHGB #### [address] [phone] Sign Writer Hand: Brandon Anaya MDGlucose [Mass/Vol]123 mg/tSLqox40-54JgxnmWashington HospitalComment on above:Performed By: #### CDP, CP, LIP, TROPI, LIPRF, GLYHGB #### [facility] [address] [place] [phone] Sign Writer Hand: BLADIMIR Mcmanusotassium [Moles/Vol]3.5 mmol/LLow3.7-5.3MWashington HospitalComment on above:Performed By: #### CDP, CP, LIP, TROPI, LIPRF, GLYHGB #### [facility] [address] [place] [phone] Sign Writer Hand: FABIANA Mcmanusodium [Moles/Vol]132 mmol/ORja557-550GtltnOhiohealth Berger HospitalComment on above:Performed By: #### CDP, CP, LIP, TROPI, LIPRF, GLYHGB #### [facility] [address] [place] [phone] Sign Writer Hand: Brandon Anaya MDUrea nitrogen [Mass/Vol]14 mg/dLNormal8-23Ohiohealth Berger HospitalComment on above:Performed By: #### CDP, CP, LIP, TROPI, LIPRF, GLYHGB #### [facility] [address] [place] [phone] Sign Writer Hand: RADHA Mcmanus/CRE UlicesOT REPORTEDNormal9-20Ohiohealth Berger HospitalComment on above:Performed By: #### CDP, CP, LIP, TROPI, LIPRF, GLYHGB #### [facility] [address] [place] [phone] Sign Writer Hand: FABIANA Mcmanustaging:NOT REPORTEDNormalOhiohealth Berger HospitalComment on above:Performed By: #### CDP, CP, LIP, TROPI, LIPRF, GLYHGB #### [facility] [address] [place] [phone] Sign Writer Hand: Josh Mcmanus Metabolic Panel w/ Reflex to MGon [id number] gap [Moles/Vol]10 mmol/L9 - 17 mmol/LMSumma Health [facility], KYBun/Cre RatioNOT REPORTEDMerFirelands Regional Medical Center, KYCalcium [Mass/Vol]9.0 mg/dL8.6 - 10.4 mg/dLMount St. [facility], KYChloride [Moles/Vol]97 mmol/LLow98 - 107 mmol/[facility], KYCO2 [Moles/Vol]25 mmol/L20 - 31 mmol/[facility] [place], [place] Creatinine [Mass/Vol]0.5 mg/dL0.5 - 0.9 mg/dLMount St. [facility] Hospital, KYGFR >60>60 mL/minMount [address]. Mary Hospital, KYGFR Non->60>60 mL/min [facility], KYGFR/1.73 sq M predicted among non-blacks MDRD (S/P/Bld) [Vol rate/Area][facility], KYComment on above:Average GFR for 70 or more years old: 75 mL/min/1.73sq m Chronic Kidney Disease: <60 mL/min/1.73sq m Kidney failure: <15 mL/min/1.73sq m eGFR calculated using average adult body mass. Additional eGFR calculator available at: http://www.[employer]/multiple_crcl_2012.htm GFR/1.73 sq M predicted among non-blacks MDRD (S/P/Bld) [Vol rate/Area]NOT REPORTEDMount St. [facility] Hospital, KYGlucose [Mass/Vol]123 mg/kULtop17 - 99 mg/dLMount St. Mary Hospital, KYInterpretation and review of laboratory resultsAbnormalMount St. Mary Hospital, KYPotassium [Moles/Vol]3.5 mmol/LLow3.7 - 5.3 mmol/[facility], KYSodium [Moles/Vol]132 mmol/JQnk797 - 144 mmol/[facility], KYUrea nitrogen [Mass/Vol]14 mg/dL8 - 23 mg/dLMount [facility]. [facility] Hospital, KYC-REACTIVE PROTEINon [id number] [Mass/Vol]6.3 mg/LHigh0 - 5 mg/LMercy Health- [place], KYInterpretation and review of laboratory resultsAbnoMercy Health [facility] Hospital- [place], KYC-Reactive Protein on 35-65-7855NKW [Mass/Vol]6.3 mg/LHigh0.0-5.0[facility] Comment on above:Performed By: #### CDP, CP, LIP, TROPI, LIPRF, GLYHGB #### [facility] [address] [phone] Sign Writer Hand: Brandon Anaya [facility] auto differentialon [id number] (Bld) [#/Vol]0.06 10*3/uLSelect Medical [facility], [place]- [place], KYBasophils/100 WBC (Bld)1 %0 - 2 % [facility], KYDifferential TypeNOT REPORTEDUc Health [place], KYEosinophils (Bld) [#/Vol]0.07 10*3/uLUc Health [place], KYEosinophils/100 WBC (Bld)1 %1 - 4 %[facility] [place], KYErythrocyte distribution width (RBC) [Ratio]14.5 %High11.8 - 14.4 %[facility] [place], KYHematocrit (Bld) [Volume fraction]42.7 %36.3 - 47.1 %[facility] [place], KYHemoglobin (Bld) [Mass/Vol]13.5 g/dL11.9 - 15.1 g/dLMount St. Mary Hospital, KYImmature granulocytes (Bld) [#/Vol]0.05 10*3/uLUc Health [place], KYImmature granulocytes (Bld) [#/Vol]1 %Tjbd2OuxugSelect Medical [facility], [place]- [place], KYInterpretation and review of laboratory resultsAbnoUniversity Hospitals Parma [facility] [place], KYLymphocytes (Bld) [#/Vol]1.05 10*3/uLLowSelect Medical [facility], [place]- [place], KYLymphocytes/100 WBC (Bld)14 %Low24 - 43 %[facility] [place]- [place], KYMCH (RBC) [Entitic mass]29.8 pg25.2 - 33.[address] [facility], MEMCHC (RBC) [Mass/Vol]31.6 g/dL28.4 - 34.8 g/dLMount St. Mary Hospital, [place] MCV (RBC) [Entitic vol]94.3 fL82.6 - 102.[address] [facility] Hospital, MEMonocytes (Bld) [#/Vol]0.65 10*3/uLMount St. Mary Hospital, KYMonocytes/100 WBC (Bld)9 %3 - 12 %[facility], MEPlatelet mean volume (Bld) [Entitic vol]10.9 fL8.1 - 13.[address] [facility] Hospital, MEPlatelets (Bld) [#/Vol]170 10*3/[facility], MEPlatelets (Bld) [#/Vol]NOT REPORTED[facility] (Bld) [#/Vol]4.53 10*6/uL3.95 - 5.11 m/uLMount St. Mary Hospital, [facility] morphology finding Nom (Bld)ANISOCYTOSIS PRESENTMount St. Mary Hospital, MESegmented neutrophils/100 WBC (Bld)74 %High36 - 65 % [facility], MESegs Absolute5.55[facility], MEWBC (Bld) [#/Vol]0.0 10*3/uL0.[address] [facility] Hospital, MEWBC (Bld) [#/Vol]7.4 10*3/uLMount St. Mary Hospital, MEWBC MorphologyNOT REPORTEDChildren[facility] of [place] with Diffon [id number]. Basophil0.06 k/uLNormal0.00-0.20[facility] Comment on above:Performed By: #### CDP, CP, LIP, TROPI, LIPRF, GLYHGB #### [facility] [place] [address] Sign Writer Hand: Marie Mcmanus.Imm.Granulocyte0.05 k/uLNormal0.00-0.30Ohiohealth Berger HospitalComment on above:Performed By: #### CDP, CP, LIP, TROPI, LIPRF, GLYHGB #### [facility] [address] [place] [phone] Sign Writer Hand: Marie Mcmanus.Neutrophil (Seg)5.55 k/uLNormal1.50-8.10 Ohio[facility] Berger HospitalComment on above:Performed By: #### CDP, CP, LIP, TROPI, LIPRF, GLYHGB #### [address] [address] Sign Writer Hand: Brandon Anaya MDBasophils/100 WBC (Bld)1 %Normal0-2MWashington HospitalComment on above:Performed By: #### CDP, CP, LIP, TROPI, LIPRF, GLYHGB #### [address] [address] Sign Writer Hand: Brandon Anaya MDEosinophils (Bld) [#/Vol]0.07 10*3/uLNormal 0.00-0.44Ohiohealth Berger HospitalComment on above:Performed By: #### CDP, CP, LIP, TROPI, LIPRF, GLYHGB #### [address] [address] Sign Writer Hand: Brandon Anaya MDEosinophils/100 WBC (Bld)1 %Normal1-4Ohiohealth Berger HospitalComment on above:Performed By: #### CDP, CP, LIP, TROPI, LIPRF, GLYHGB #### [facility] [address] [place] [phone] Sign Writer Hand: Brandon Anaya MDErythrocyte distribution width (RBC) [Ratio]14.5 %High11.8-14.4Ohiohealth Berger HospitalComment on above:Performed By: #### CDP, CP, LIP, TROPI, LIPRF, GLYHGB #### [facility] [address] [place] [phone] Sign Writer Hand: Brandon Anaya MDHematocrit (Bld) [Volume fraction]42.7 %Normal 36.3-47.1MWashington HospitalComment on above:Performed By: #### CDP, CP, LIP, TROPI, LIPRF, GLYHGB #### [address] [phone] Sign Writer Hand: Brandon Anaya MDHemoglobin (Bld) [Mass/Vol]13.5 g/dLNormal 11.9-15.1MWashington HospitalComment on above:Performed By: #### CDP, CP, LIP, TROPI, LIPRF, GLYHGB #### [place] [address] Sign Writer Hand: Brandon Anaya MDImmature granulocytes (Bld) [#/Vol]1 %Zeyw1BxjerOhiohealth Berger HospitalComment on above:Performed By: #### CDP, CP, LIP, TROPI, LIPRF, GLYHGB #### [place] [address] Sign Writer Hand: Kortney Mcmanusmphocytes (Bld) [#/Vol]1.05 10*3/uLLow 1.10-3.70Ohiohealth Berger HospitalComment on above:Performed By: #### CDP, CP, LIP, TROPI, LIPRF, GLYHGB #### [place] [address] Sign Writer Hand: Kortney Mcmanusmphocytes/100 WBC (Bld)14 %Spw62-80WywylOhiohealth Berger HospitalComment on above:Performed By: #### CDP, CP, LIP, TROPI, LIPRF, GLYHGB #### [address] [phone] Sign Writer Hand: LIZZY McmanusCH (RBC) [Entitic mass]29.8 hmDukbhm66.2-33.5 Ohio[facility] Berger HospitalComment on above:Performed By: #### CDP, CP, LIP, TROPI, LIPRF, GLYHGB #### [facility] [address] [place] [address] Sign Writer Hand: LIZZY McmanusCHC (RBC) [Mass/Vol]31.6 g/nJTxggtj71.4-34.8 [facility] Berger HospitalComment on above:Performed By: #### CDP, CP, LIP, TROPI, LIPRF, GLYHGB #### [facility] [address] [place] [address] Sign Writer Hand: LIZZY McmanusCV (RBC) [Entitic vol]94.3 dLWstbdg61.6-102.9 [facility] Berger HospitalComment on above:Performed By: #### CDP, CP, LIP, TROPI, LIPRF, GLYHGB #### [facility] [address] [place] [address] Sign Writer Hand: LIZZY Mcmanusonocytes (Bld) [#/Vol]0.65 10*3/uLNormal 0.10-1.20Ohio[facility] Berger HospitalComment on above:Performed By: #### CDP, CP, LIP, TROPI, LIPRF, GLYHGB #### [facility] [address] [place] [address] Sign Writer Hand: LIZZY Mcmanusonocytes/100 WBC (Bld)9 %Normal3-12Ohiohealth Berger HospitalComment on above:Performed By: #### CDP, CP, LIP, TROPI, LIPRF, GLYHGB #### [facility] [address] [place] [address] Sign Writer Hand: Brandon Anaya MDNeutrophil (Seg)74 %Mqui57-13QvidpOhiohealth Berger HospitalComment on above:Performed By: #### CDP, CP, LIP, TROPI, LIPRF, GLYHGB #### [address] [address] Sign Writer Hand: JOSIE Mcmanus Automated0.0 per 100 WBCNormal0.0Ohiohealth Berger HospitalComment on above:Performed By: #### CDP, CP, LIP, TROPI, LIPRF, GLYHGB #### [address] [address] Sign Writer Hand: Nadeem Mcmanus mean volume (Bld) [Entitic vol]10.9 fL Normal8.1-13.5Ohiohealth Berger HospitalComment on above:Performed By: #### CDP, CP, LIP, TROPI, LIPRF, GLYHGB #### [address] [address] Sign Writer Hand: Geremias Mcmanustemariluz (Bld) [#/Vol]170 10*3/zZSjckie492-346 [facility] Berger HospitalComment on above:Performed By: #### CDP, CP, LIP, TROPI, LIPRF, GLYHGB #### [address] [address] Sign Writer Hand: DREW McmanusBC (Bld) [#/Vol]4.53 10*6/uLNormal3.95-5.11 [facility] Berger HospitalComment on above:Performed By: #### CDP, CP, LIP, TROPI, LIPRF, GLYHGB #### [address] [address] Sign Writer Hand: RICHA Mcmanus morphology finding Nom (Bld)ANISOCYTOSIS PRESENTNormalOhiohealth Berger HospitalComment on above:Performed By: #### CDP, CP, LIP, TROPI, LIPRF, GLYHGB #### [address] [address] Sign Writer Hand: LUCIAN Mcmanus (Bld) [#/Vol]7.4 10*3/uLNormal3.5-11.3Mercy Herrick CampusComment on above:Performed By: #### CDP, CP, LIP, TROPI, LIPRF, GLYHGB #### [facility] [address] [place] [address] Sign Writer Hand: Gustabo Mcmanus PerformedNOT REPORTEDOhioHealth O'Bleness HospitalComment on above:Performed By: #### CDP, CP, LIP, TROPI, LIPRF, GLYHGB #### [facility] [address] [place] [address] Sign Writer Hand: Bon Mcmanus (Adalberto) [#/Vol]NOT REPORTEDOhioHealth O'Bleness HospitalComment on above:Performed By: #### CDP, CP, LIP, TROPI, LIPRF, GLYHGB #### [facility] [address] [place] [address] Sign Writer Hand: LUCIAN Mcmanus MorphologyNOT REPORTEDOhioHealth O'Bleness HospitalComment on above:Performed By: #### CDP, CP, LIP, TROPI, LIPRF, GLYHGB #### [facility] [address] [place] [address] Sign Writer Hand: Brandon Anaya MDCT HEAD WO CONTRASTon [id number] HEAD WO CONTRASTEXAMINATION: CT OF THE HEAD [...] Signed by: Naga Browning MD 10/10/19 Final resultNormalOhiohealth Berger Hospital1. No acute intracranial abnormality. 2. Mild chronic white matter microvascular ischemic changes.[facility], CLARAEXAMINATION: CT OF THE HEAD WITHOUT CONTRAST 10/10/2019 [...] abnormality of the visualized skull or soft tissues.[facility] Mary HospitalRadha Mhpn Incoming Radiant Results From [employer] - 10/10/2019 5:31 PM EDT EXAMINATION: CT [...] Mild chronic white matter microvascular ischemic changes. [facility], KYCTA HEAD NECK W CONTRASTon [id number] HEAD NECK W CONTRASTEXAMINATION: CTA OF THE [...] Initial FINDINGS: CTA NECK: AORTIC ARCH/ARCH VESSELS: Anng-wu-tklhqebj atherosclerotic plaque at the arch arch and [...] by: Naga Browning MD 10/10/19 Final resultNormalMercy Herrick CampusEXAMINATION: CTA OF THE HEAD AND NECK WITH [...] Initial FINDINGS: CTA NECK: AORTIC ARCH/ARCH VESSELS: Dtmg-lt-umiywblv atherosclerotic plaque at the arch arch and [...] fluid collection. The salmeron-white differentiation is maintained. [facility], KY1. No acute arterial abnormality or hemodynamically significant arterial stenosis in the head or neck. 2. No intracranial aneurysm. [facility], KYEdi, Mhpn Incoming Radiant Results From Loop Appe/Pacs - 10/10/2019 5:36 PM EDT EXAMINATION: CTA [...] Initial FINDINGS: CTA NECK: AORTIC ARCH/ARCH VESSELS: Eonh-ui-lgzdbsmu atherosclerotic plaque at the arch arch and [...] head or neck. 2. No intracranial aneurysm. [place], KYHemoglobin A1Con [id number] (Bld) [Mass fraction]111 mg/dLNormalOhiohealth Berger HospitalComment on above:Result Comment: The ADA and AACC recommend providing the estimated average glucose result to permit better patient understanding of their HBA1c result.Performed By: #### CDP, CP, LIP, TROPI, LIPRF, GLYHGB #### [employer] [address] [place] [address] [phone] Sign Writer Hand: Brandon Anaya MDHbA1c (Bld) [Mass fraction]5.5 %Normal4.0-6.0 [facility] Berger HospitalComment on above:Performed By: #### CDP, CP, LIP, TROPI, LIPRF, GLYHGB #### [facility] [address] [place] [address] Sign Writer Hand: Brandon Anaya MDGlucose [Mass/Vol]111 mg/dLMount St. Mary Hospital, [place] Comment on above:The ADA and AACC recommend providing the estimated average glucose result to permit better patient understanding of their HBA1c result. HbA1c (Bld) [Mass fraction]5.5 %4 - 6 %[facility], KYLACTIC ACID, WHOLE BLOODon 80-08-6974Vpnjki Acid, Whole Blood1.0 mmol/L0.7 - 2.1 mmol/LMSumma Health Wadsworth - [facility]ittman [facility] Center, KYLactic Acid,Whole Blon 25-42-1938Qvnolt Acid,Whole Bl1.0 mmol/L Normal0.7-2.1MWashington HospitalComment on above:Performed By: #### CDP, CP, LIP, TROPI, LIPRF, GLYHGB #### [facility] [address] [place], [place] [phone] Sign Writer Hand: Omar Mcmanus [id number] [Mass/Vol]2.1 mg/dLNormal1.6-2.6Mercy Herrick CampusComment on above:Performed By: #### CDP, CP, LIP, TROPI, LIPRF, GLYHGB #### [facility] [address] [place] [address] Sign Writer Hand: Brandon Anaya MDMagnesium [Mass/Vol]2.1 mg/dL1.6 - 2.6 mg/dL [facility], KYOtheron . Subtle sclerosis subjacent to the L2 and L3 superior endplates is age-indeterminate and could represent trabecular condensation associated with acute or subacute endplate fractures. MRI of the lumbar spine is recommended for further evaluation. 2. No acute osseous abnormality of the sacrum or coccyx. 3. Osteopenia.[facility] Mary HospitalRadha Mhpn Incoming Radiant Results From [facility] - 10/10/2019 8:19 PM EDT EXAMINATION: THREE [...] of the sacrum or coccyx. 3. Osteopenia. [facility] HospitalCLARAEXAMINATION: THREE XRAY VIEWS OF THE SACRUM/COCCYX; [...] in the urinary bladder. Atherosclerotic calcifications are present.[facility] Glucose Fingerstickon 93-91-0506Hieyoqi [Mass/Vol]159 mg/xAPjla26 - 105 mg/dLMount St. [facility], [place] Interpretation and review of laboratory resultsAbNew[place], [place] Glucose [Mass/Vol]186 mg/yCVqxo31 - 105 mg/dLMount St. Mary Hospital, MEInterpretation and review of laboratory resultsAbNewberry, KYGlucose [Mass/Vol] 135 mg/yRDmqk57 - 105 mg/dLMount St. Mary Hospital, MEInterpretation and review of laboratory resultsAbNewberry, KYProcalcitoninon 10-10-2019 Procalcitonin0.15 ng/mLHigh<0.09Ohiohealth Berger HospitalComment on above:Result Comment: Suspected Sepsis: <0.50 [...] entered into the Change in Procalcitonin Calculator (www.dtgrcx-sag-mqgiqvivvu.[employer]) to determine the patient's Mortality Risk Prognosis In healthy neonates, plasma Procalcitonin (PCT) concentrations increase gradually after , reaching peak values at about 24 hours of age then decrease to normal values below 0.5 ng/mL by 48-72 hours of age.Performed By: #### CDP, CP, LIP, TROPI, LIPRF, GLYHGB #### [facility] [place], [place] [phone] Sign Writer Hand: Brandon Anaya MDInterpretation and review of laboratory results AbnormalMillheim, KYProcalcitonin0.15 ng/mLHigh<0.09[place], [place] Comment on above: Suspected Sepsis: <0.50 [...] entered into the Change in Procalcitonin Calculator (www.xjmxnq-suk-vsiztkzhpk.[employer]) to determine the patient's Mortality Risk Prognosis In healthy neonates, plasma Procalcitonin (PCT) concentrations increase gradually after , reaching peak values at about 24 hours of age then decrease to normal values below 0.5 ng/mL by 48-72 hours of age. Sedimentation Rateon 87-12-0487Neyyogokrrjzv Rate8 mmNormal0-30[facility] Berger HospitalComment on above:Performed By: #### CDP, CP, LIP, TROPI, LIPRF, GLYHGB #### [facility] [address] [place], [place] [phone] Sign Writer Hand: FABIANA Mcmanused Rate8 mm0 - [address] [facility], KYTS w/reflex to FT4on [id number] Qn1.05 m[IU]/LNormal0.30-5.00Ohio[facility] Berger HospitalComment on above:Performed By: #### CDP, CP, LIP, TROPI, LIPRF, GLYHGB #### [facility] [place] [address] Sign Writer Hand: Brandon Anaya MDMERGED WITH [facility] with Reflexon [id number] Qn1.05 m[IU]/L [facility], KYXR LUMBAR SPINE (2-3 VIEWS)on [id number] LUMBAR SPINE (2-3 VIEWS)EXAMINATION: THREE XRAY VIEWS [...] Signed by: Naga Browning MD 10/10/19 Final resultNormalOhiohealth Berger HospitalXR SACRUM COCCYX (MIN 2 VIEWS) on [id number] SACRUM COCCYX (MIN 2 VIEWS)EXAMINATION: THREE XRAY [...] Signed by: Naga Browning MD 10/10/19 Final resultNormalOhiohealth Berger HospitalBeta Hydroxybutyrateon 91-01-6538Gbga Hydroxybutyrate0.09 mmol/LNormal0.02-0.27Ohio[facility] Berger HospitalComment on above:Performed By: #### ARI, #### [employer] [address] [place] [phone] Sign Writer Hand: Brandon Anaya MDBeta-Hydroxybutyrateon 10-09-2019 Beta-Hydroxybutyrate0.09 mmol/L0.02 - 0.27 mmol/LMSumma Health Wadsworth - [facility]ittman [facility] Center, KYCBC WITH AUTO DIFFERENTIALon 70-94-5546Uuyymcnre (Bld) [#/Vol]0.03 10*3/[facility], KYBasophils/100 WBC (Bld)0 %0 - 2 %[facility], KYDifferential TypeNOT REPORTEDMount St. Mary Hospital, KYEosinophils (Bld) [#/Vol]10*3/[facility], [place] Eosinophils/100 WBC (Bld)0 %Low1 - 4 %[place], KYErythrocyte distribution width (RBC) [Ratio]14.2 %11.8 - 14.4 %[place], [place] Hematocrit (Bld) [Volume fraction]44.6 %36.3 - 47.1 %[place], [place] Hemoglobin (Bld) [Mass/Vol]14.2 g/dL11.9 - 15.1 g/dLMillheim, KYImmature granulocytes (Bld) [#/Vol]1 %Diuu9XmdzkMount St. [facility] Hospital, CLARAImmature granulocytes (Bld) [#/Vol]0.06 10*3/uLMount St. Mary Hospital, CLARAInterpretation and review of laboratory resultsAbnormalMount St. Mary Hospital, CLARALymphocytes (Bld) [#/Vol]0.97 10*3/uLLowMount St. Mary Hospital, CLARALymphocytes/100 WBC (Bld)13 %Low24 - 43 %[facility] CLARAMCH (RBC) [Entitic mass]29.7 pg25.2 - 33.5 pgMill[place], [place] MCHC (RBC) [Mass/Vol]31.8 g/dL28.4 - 34.8 g/dLKettering Health [facility] CLARAMCV (RBC) [Entitic vol]93.3 fL82.6 - 102.[address] [facility] Hospital, CLARAMonocytes (Bld) [#/Vol] 0.52 10*3/[facility], CLARAMonocytes/100 WBC (Bld)7 %3 - 12 %[facility] CLARAPlatelet mean volume (Bld) [Entitic vol]10.9 fL8.1 - 13.[address] [facility] Hospital, KYPlatelets (Bld) [#/Vol]NOT REPORTEDMount St. [facility], CLARAPlatelets (Bld) [#/Vol]202 10*3/[facility], CLARARBC (Bld) [#/Vol]4.78 10*6/uL3.95 - 5.11 m/[facility], MERBC morphology finding Nom (Bld)NOT REPORTEDMount St. [facility], MESegmented neutrophils/100 WBC (Bld)79 %High36 - 65 %[place], KYSe Absolute6.10[facility] (Bld) [#/Vol]0.0 10*3/uL0.0 per 100 WBCLake County Memorial [facility] West (Bld) [#/Vol]7.7 10*3/uLMount St. [facility], [facility] HOSPITALBC MorphologyNOT REPORTEDMill[place], KYCB with Diffon [id number]. Basophil0.03 k/uLNormal0.00-0.20[facility] Berger HospitalComment on above:Performed By: #### CDP, CP, LIP, TROPI, LIPRF, GLYHGB #### [facility] [address] [place] [phone] Sign Writer Hand: Marie Mcmanus.Imm.Granulocyte0.06 k/uLNormal0.00-0.30[facility] HospitalComment on above:Performed By: #### CDP, CP, LIP, TROPI, LIPRF, GLYHGB #### [facility] [address] [place] [phone] Sign Writer Hand: Marie Mcmanus.Neutrophil (Seg)6.10 k/uLNormal1.50-8.10 [facility] HospitalComment on above:Performed By: #### CDP, CP, LIP, TROPI, LIPRF, GLYHGB #### [facility] [address] [place] [phone] Sign Writer Hand: Brandon Anaya MDBasophils/100 WBC (Bld)0 %Normal0-2MercVencor HospitalComment on above:Performed By: #### CDP, CP, LIP, TROPI, LIPRF, GLYHGB #### [facility] [address] [place] [phone] Sign Writer Hand: Brandon Anaya MDEosinophils (Bld) [#/Vol]10*3/uLNormal0.00-0.44 [facility] HospitalComment on above:Performed By: #### CDP, CP, LIP, TROPI, LIPRF, GLYHGB #### [place] [address] Sign Writer Hand: Brandon Anaya MDEosinophils/100 WBC (Bld)0 %Low1-4[facility] Berger HospitalComment on above:Performed By: #### CDP, CP, LIP, TROPI, LIPRF, GLYHGB #### [place] [address] Sign Writer Hand: Brandon Anaya MDErythrocyte distribution width (RBC) [Ratio]14.2 %Byyulv39.8-14.4Ohio[facility] Berger HospitalComment on above:Performed By: #### CDP, CP, LIP, TROPI, LIPRF, GLYHGB #### [place] [address] Sign Writer Hand: Brandon Anaya MDHematocrit (Bld) [Volume fraction]44.6 %Normal 36.3-47.1MWashington HospitalComment on above:Performed By: #### CDP, CP, LIP, TROPI, LIPRF, GLYHGB #### [place] [address] Sign Writer Hand: Brandon Anaya MDHemoglobin (Bld) [Mass/Vol]14.2 g/dLNormal 11.9-15.1MWashington HospitalComment on above:Performed By: #### CDP, CP, LIP, TROPI, LIPRF, GLYHGB #### [place] [address] Sign Writer Hand: Brandon Anaya MDImmature granulocytes (Bld) [#/Vol]1 %Gcev3NpnsrOhiohealth Berger HospitalComment on above:Performed By: #### CDP, CP, LIP, TROPI, LIPRF, GLYHGB #### [facility] [address] [place] [phone] Sign Writer Hand: Brandon Anaya MDLymphocytes (Bld) [#/Vol]0.97 10*3/uLLow 1.10-3.70[facility] Berger HospitalComment on above:Performed By: #### CDP, CP, LIP, TROPI, LIPRF, GLYHGB #### [address] [address] Sign Writer Hand: Kortney Mcmanusmphocytes/100 WBC (Bld)13 %Ymu16-52ArgogOhiohealth Berger HospitalComment on above:Performed By: #### CDP, CP, LIP, TROPI, LIPRF, GLYHGB #### [address] [address] Sign Writer Hand: LIZZY McmanusCH (RBC) [Entitic mass]29.7 reYegbeu94.2-33.5 [facility] HospitalComment on above:Performed By: #### CDP, CP, LIP, TROPI, LIPRF, GLYHGB #### [address] [phone] Sign Writer Hand: STEFFANIE McmanusC (RBC) [Mass/Vol]31.8 g/iGTnmywj11.4-34.8 [facility] HospitalComment on above:Performed By: #### CDP, CP, LIP, TROPI, LIPRF, GLYHGB #### [facility] [address] [place] [phone] Sign Writer Hand: LIZZY McmanusCV (RBC) [Entitic vol]93.3 oTOvscqt13.6-102.9 [facility] HospitalComment on above:Performed By: #### CDP, CP, LIP, TROPI, LIPRF, GLYHGB #### [facility] [place] [address] [place] [phone] Sign Writer Hand: LIZZY Mcmanusonocytes (Bld) [#/Vol]0.52 10*3/uLNormal 0.10-1.20[facility] HospitalComment on above:Performed By: #### CDP, CP, LIP, TROPI, LIPRF, GLYHGB #### [address] [id number] Sign Writer Hand: LIZZY Mcmanusonocytes/100 WBC (Bld)7 %Normal3-12[facility] Berger HospitalComment on above:Performed By: #### CDP, CP, LIP, TROPI, LIPRF, GLYHGB #### [place] [address] Sign Writer Hand: Modesta Mcmanusophil (Seg)79 %Jxxo75-06KmwgpOhiohealth Berger HospitalComment on above:Performed By: #### CDP, CP, LIP, TROPI, LIPRF, GLYHGB #### [place] [address] Sign Writer Hand: Brandon Anaya MDNRBC Automated0.0 per 100 WBCNormal0.0Ohiohealth Berger HospitalComment on above:Performed By: #### CDP, CP, LIP, TROPI, LIPRF, GLYHGB #### [address] [address] Sign Writer Hand: Nadeem Mcmanus mean volume (Bld) [Entitic vol]10.9 fL Normal8.1-13.5Ohiohealth Berger HospitalComment on above:Performed By: #### CDP, CP, LIP, TROPI, LIPRF, GLYHGB #### [address] [phone] Sign Writer Hand: Geremias Mcmanustelets (Bld) [#/Vol]202 10*3/hSPqyfoo080-421 [facility] Berger HospitalComment on above:Performed By: #### CDP, CP, LIP, TROPI, LIPRF, GLYHGB #### [facility] [address] [place] [phone] Sign Writer Hand: RICHA Mcmanus (Bld) [#/Vol]4.78 10*6/uLNormal3.95-5.11 [facility] Berger HospitalComment on above:Performed By: #### CDP, CP, LIP, TROPI, LIPRF, GLYHGB #### [facility] [address] [place] [phone] Sign Writer Hand: LUCIAN Mcmanus (Bld) [#/Vol]7.7 10*3/uLNormal3.5-11.3MWashington HospitalComment on above:Performed By: #### CDP, CP, LIP, TROPI, LIPRF, GLYHGB #### [address] [phone] Sign Writer Hand: Gustabo Mcmanus Diff PerformedNOT REPORTEDNormalOhiohealth Berger HospitalComment on above:Performed By: #### CDP, CP, LIP, TROPI, LIPRF, GLYHGB #### [facility] [address] [place] [phone] Sign Writer Hand: BLADIMIR Mcmanuslatelets (Bld) [#/Vol]NOT REPORTEDNormalOhiohealth Berger HospitalComment on above:Performed By: #### CDP, CP, LIP, TROPI, LIPRF, GLYHGB #### [facility] [address] [place] [phone] Sign Writer Hand: RICHA Mcmanus morphology finding Nom (Bld)NOT REPORTED NormalOhiohealth Berger HospitalComment on above:Performed By: #### CDP, CP, LIP, TROPI, LIPRF, GLYHGB #### [facility] [address] [place] [phone] Sign Writer Hand: LUCIAN Mcmanus MorphologyNOT REPORTEDNormalOhiohealth Berger HospitalComment on above:Performed By: #### CDP, CP, LIP, TROPI, LIPRF, GLYHGB #### [facility] [address] [place] [phone] Sign Writer Hand: Brandon Anaya MDCOVID-19, PCRon [id number]-CoV-2MercAdventHealth Wesley Chapel, KJGXTM-LlO-8, PCRMount St. Mary Hospital, TUHFNA-XfD-2, RapidNot Detected Not DetectedMount St. Mary Hospital, KYComment on above: Rapid NAAT: The specimen [...] management decisions. Fact sheet for Healthcare Providers: https://www.fda.gov/media/619367/download Fact sheet for Patients: https://www.fda.gov/media/624803/download Methodology: Isothermal Nucleic Acid Amplification Source.NASOPHARYNGEAL SWABMount St. Mary Hospital, KYCT CHEST PULMONARY EMBOLISM W CONTRASTon [id number] CHEST PULMONARY EMBOLISM W CONTRASTEXAMINATION: CTA OF [...] Signed by: Forrest Darby MD 10/09/19 Final resultNormalMerSaint Agnes Medical CenterNo central or segmental pulmonary embolus. No acute pulmonary process. Emphysema.[facility], CLARA EXAMINATION: CTA OF THE CHEST [...] No focal consolidation. Bones: Thoracic spine degenerative changes.[facility], Radha, papo Incoming Radiant Results From [employer] - 10/09/2019 8:31 AM EDT EXAMINATION: CTA [...] pulmonary embolus. No acute pulmonary process. Emphysema. [facility] Metabolic Profon 10-09-2019(cont.)NormalOhiohealth Berger HospitalComment on above:Result Comment: Average GFR for 70 or more years old: 75 mL/min/1.73sq m Chronic Kidney Disease: <60 mL/min/1.73sq m Kidney failure: <15 mL/min/1.73sq m eGFR calculated using average adult body mass. Additional eGFR calculator available at: http://www.[employer]/multiple_crcl_2012.htmPerformed By: #### CDP, CP, LIP, TROPI, LIPRF, GLYHGB #### [employer] [address] [place] [phone] Sign Writer Hand: Brandon nAaya MDAlbumin [Mass/Vol]4.1 g/dLNormal3.5-5.2MWashington HospitalComment on above:Performed By: #### CDP, CP, LIP, TROPI, LIPRF, GLYHGB #### [employer] [facility] [address] [place] [phone] Sign Writer Hand: Brandon Anaya MDAlbumin/Globulin [Mass ratio]1.6 {ratio}Normal 1.0-2.5Ohiohealth Berger HospitalComment on above:Performed By: #### CDP, CP, LIP, TROPI, LIPRF, GLYHGB #### [facility] [address] [place] [phone] Sign Writer Hand: Kristopher Mcmanusline Phos90 U/NLvbzub89-332RgvrmOhiohealth Berger HospitalComment on above:Performed By: #### CDP, CP, LIP, TROPI, LIPRF, GLYHGB #### [facility] [address] [place] [phone] Sign Writer Hand: Brandon Anaya MDALT [Catalytic activity/Vol]15 U/LNormal5-33 [facility] Berger HospitalComment on above:Performed By: #### CDP, CP, LIP, TROPI, LIPRF, GLYHGB #### [facility] [address] [place] [phone] Sign Writer Hand: James Mcmanus gap [Moles/Vol]18 mmol/LHigh9-17Ohiohealth Berger HospitalComment on above:Performed By: #### CDP, CP, LIP, TROPI, LIPRF, GLYHGB #### [address] [phone] Sign Writer Hand: Brandon Anaya MDAST [Catalytic activity/Vol]11 U/LNormal<32Ohiohealth Berger HospitalComment on above:Performed By: #### CDP, CP, LIP, TROPI, LIPRF, GLYHGB #### [facility] [address] [place] [phone] Sign Writer Hand: Brandon Anaya MDBilirubin Ql (U)0.39 mg/dLNormal0.3-1.2MWashington HospitalComment on above:Performed By: #### CDP, CP, LIP, TROPI, LIPRF, GLYHGB #### [facility] [address] [place] [phone] Sign Writer Hand: Brandon Anaya MDCalcium [Mass/Vol]9.5 mg/dLNormal8.6-10.4Ohiohealth Berger HospitalComment on above:Performed By: #### CDP, CP, LIP, TROPI, LIPRF, GLYHGB #### [facility] [address] [place] [address] [phone] Sign Writer Hand: NEHAL Mcmanushloride [Moles/Vol]99 mmol/UZzlwas79-859BaukvOhiohealth Berger HospitalComment on above:Performed By: #### CDP, CP, LIP, TROPI, LIPRF, GLYHGB #### [employer] [facility] [address] [place] [phone] Sign Writer Hand: Brandon Anaya MDCO2 [Moles/Vol]24 mmol/EXbkqpk86-17WkgfeOhiohealth Berger HospitalComment on above:Performed By: #### CDP, CP, LIP, TROPI, LIPRF, GLYHGB #### [facility] [address] [place] [phone] Sign Writer Hand: NEHAL Mcmanusreatinine [Mass/Vol]0.63 mg/dLNormal0.50-0.90 [facility] Berger HospitalComment on above:Performed By: #### CDP, CP, LIP, TROPI, LIPRF, GLYHGB #### [facility] [address] [place] [phone] Sign Writer Hand: Brandon Anaya MDGFR, Amer>60Normal>60Ohiohealth Berger HospitalComment on above:Performed By: #### CDP, CP, LIP, TROPI, LIPRF, GLYHGB #### [facility] [address] [place] [phone] Sign Writer Hand: Brandon Anaya MDGFR,non Amer>60Normal>60Ohio[facility] Berger HospitalComment on above:Performed By: #### CDP, CP, LIP, TROPI, LIPRF, GLYHGB #### [facility] [address] [place] [phone] Sign Writer Hand: Brandon Anaya MDGlucose [Mass/Vol]208 mg/rWJirt20-25TxlmnWashington HospitalComment on above:Performed By: #### CDP, CP, LIP, TROPI, LIPRF, GLYHGB #### [employer] [address] [place] [phone] Sign Writer Hand: Brandon Anaya MDPotassium [Moles/Vol]3.9 mmol/LNormal3.7-5.3 [facility] Berger HospitalComment on above:Performed By: #### CDP, CP, LIP, TROPI, LIPRF, GLYHGB #### [facility] [address] [place] [phone] Sign Writer Hand: Brandon Anaya MDProtein [Mass/Vol]6.6 g/dLNormal6.4-8.3MWashington HospitalComment on above:Performed By: #### CDP, CP, LIP, TROPI, LIPRF, GLYHGB #### [facility] [address] [place] [phone] Sign Writer Hand: FABIANA Mcmanusodium [Moles/Vol]141 mmol/XJgzeag290-599PiiqyOhiohealth Berger HospitalComment on above:Performed By: #### CDP, CP, LIP, TROPI, LIPRF, GLYHGB #### [facility] [address] [place] [phone] Sign Writer Hand: Brandon Anaya MDUrea nitrogen [Mass/Vol]17 mg/dLNormal8-23Ohiohealth Berger HospitalComment on above:Performed By: #### CDP, CP, LIP, TROPI, LIPRF, GLYHGB #### [facility] [address] [place] [phone] Sign Writer Hand: BAUDILIO McmanusN/CRE RatioNOT REPORTEDNormal9-20Ohio[facility] Berger HospitalComment on above:Performed By: #### CDP, CP, LIP, TROPI, LIPRF, GLYHGB #### [facility] [address] [place] [phone] Sign Writer Hand: FABIANA Mcmanustaging:NOT REPORTEDNormalOhiohealth Berger HospitalComment on above:Performed By: #### CDP, CP, LIP, TROPI, LIPRF, GLYHGB #### [employer] [address] [place] [phone] Sign Writer Hand: Brandon Anaya [facility]ensive Metabolic Panelon 10-09-2019 Albumin [Mass/Vol]4.1 g/dL3.5 - 5.2 g/dLMount St. Mary Hospital, KYAlbumin/Globulin [Mass ratio]1.6 {ratio}[facility], KYALP [Catalytic activity/Vol]90 U/L35 - 104 U/LMSt. Francis Hospital [place], KYALT [Catalytic activity/Vol]15 U/L5 - 33 U/[facility] [place], KYAnion gap [Moles/Vol]18 mmol/LHigh9 - 17 mmol/LMSt. Francis Hospital [place], KYAST [Catalytic activity/Vol]11 U/L<32[facility], KYBilirubin Ql (U)0.39 mg/dL0.3 - 1.2 mg/dLMount St. Mary Hospital, KYBun/Cre RatioNOT REPORTEDMount St. Mary Hospital, KYCalcium [Mass/Vol]9.5 mg/dL8.6 - 10.4 mg/dLMount St. Mary Hospital, KYChloride [Moles/Vol]99 mmol/L98 - 107 mmol/[facility] [place], KYCO2 [Moles/Vol]24 mmol/L 20 - 31 mmol/[facility] [place], KYCreatinine [Mass/Vol]0.63 mg/dL0.5 - 0.9 mg/dL [facility], KYGFR >60>60 mL/minMount St. Mary Hospital, KYGFR Non->60>60 mL/minMount St. Mary Hospital, KYGFR/1.73 sq M predicted among non-blacks MDRD (S/P/Bld) [Vol rate/Area][facility], KYComment on above:Average GFR for 70 or more years old: 75 mL/min/1.73sq m Chronic Kidney Disease: <60 mL/min/1.73sq m Kidney failure: <15 mL/min/1.73sq m eGFR calculated using average adult body mass. Additional eGFR calculator available at: http://www.[employer]/multiple_crcl_2012.htm GFR/1.73 sq M predicted among non-blacks MDRD (S/P/Bld) [Vol rate/Area]NOT REPORTEDMount St. Mary Hospital, KYGlucose [Mass/Vol]208 mg/oGPowm94 - 99 mg/dLSelect Medical [facility], [place], KYInterpretation and review of laboratory resultsAbnormalSelect [facility], [place]- [place], KYPotassium [Moles/Vol]3.9 mmol/L3.7 - 5.3 mmol/LMCleveland Clinic [facility] [facility]- [place], KYProtein [Mass/Vol]6.6 g/dL6.4 - 8.3 g/dLSelect [facility] [place]- [place], KYSodium [Moles/Vol] 141 mmol/L135 - 144 mmol/LMCleveland Clinic [place] [facility]- [place], KYUrea nitrogen [Mass/Vol]17 mg/dL8 - 23 mg/dLUc Health [place], KYEKG 12 Leadon 37-60-3683Smolst Odac24VRAFlwff Health- [place], KYP Yxfv95swtiqeuHvhoe Health- [place], KYP-R Pbpvdvzy790 [facility] [place], KYQ-T Dqxvzsnt255 [facility] [place], KYQRS Pjrquebi58 [facility]- [place], KYQTc Calculation (Timott)466 [facility]- [place], KYR [place]-9degrPremier Health [facility]- [place], KYT Gvvt5nsjymsyGbbkn Health- [place], KYVentricular Klcm47HIBXpjcm Health- [place], KYEdi, Mhpn Incoming Ekg Results [place] [facility] [place] 10/09/2019 3:25 PM EDT Normal sinus rhythm Possible Left atrial enlargement Nonspecific ST abnormality Abnormal ECG No previous ECGs availableMount St. Mary Hospital, KYNormal sinus rhythm Possible Left atrial enlargement Nonspecific ST abnormality Abnormal ECG No previous ECGs availableUc Health [place], KYLIPASEon [id number] [Catalytic activity/Vol] 48 U/L13 - 60 U/LMCleveland Clinic [place] [facility]- [place], KYLipaseon 28-62-5909Trwzxa [Catalytic activity/Vol]48 U/CSzdjip26-09WsclsOhiohealth Berger HospitalComment on above: Performed By: #### CDP, CP, LIP, TROPI, LIPRF, GLYHGB #### [facility] [address] [place] [address] [phone] Sign Writer Hand: Brandon Anaya MDLipid Prof, Fastingon 10-09-2063Kwzmwbmjnal [Mass/Vol]229 mg/dLHigh<200Mercy Herrick CampusComment on above: Result Comment: Cholesterol Guidelines: <200 Desirable 200-240 Borderline >240 UndesirablePerformed By: #### CDP, CP, LIP, TROPI, LIPRF, GLYHGB #### [facility] [address] [place] [phone] Sign Writer Hand: NEHAL Mcmanusholesterol in HDL [Mass/Vol]50 mg/dLNormal>40 [facility] Berger HospitalComment on above:Result Comment: HDL Guidelines: <40 Undesirable 40-59 Borderline >59 DesirablePerformed By: #### CDP, CP, LIP, TROPI, LIPRF, GLYHGB #### [facility] [address] [place] [phone] Sign Writer Hand: NEHAL Mcmanusholesterol in LDL [Mass/Vol]143 mg/dLHigh0-130 [facility] Berger HospitalComment on above:Result Comment: LDL Guidelines: <100 Desirable 100-129 Near to/above Desirable 130-159 Borderline >159 Undesirable Direct (measured) LDL and calculated LDL are not interchangeable tests.Performed By: #### CDP, CP, LIP, TROPI, LIPRF, GLYHGB #### [facility] [address] [place] [phone] Sign Writer Hand: NEHAL Mcmanusholesttrent.total/Cholesterol in HDL [Mass ratio]4.6 {ratio}Normal<5MerSaint Agnes Medical CenterComment on above: Performed By: #### CDP, CP, LIP, TROPI, LIPRF, GLYHGB #### [employer] [address] [place] [address] [phone] Sign Writer Hand: Brandon Anaya MDTriglyceride,Vfpcgxd331 mg/dLHigh<150[facility] Beach Medical CenterComment on above:Result Comment: Triglyceride Guidelines: <150 Desirable 150-199 Borderline 200-499 High >499 Very high Based on AHA Guidelines for fasting triglyceride, November 2011.Performed By: #### CDP, CP, LIP, TROPI, LIPRF, GLYHGB #### [employer] [address] [place], [place] [phone] Sign Writer Hand: NEHAL Mcmanusholesterol in VLDL [Mass/Vol]NOT REPORTEDNormal 1-30Ohio[facility] Berger HospitalComment on above:Performed By: #### CDP, CP, LIP, TROPI, LIPRF, GLYHGB #### [employer] [address] [place], [place] [phone] Sign Writer Hand: Brandon Anaya MDLipid, Fastingon 39-99-7416Xjbenhcqpoi [Mass/Vol]229 mg/dLHigh<200[place], KYComment on above: Cholesterol Guidelines: <200 Desirable 200-240 Borderline >240 Undesirable Cholesterol in HDL [Mass/Vol]50 mg/dL>40[place], KYComment on above: HDL Guidelines: <40 Undesirable 40-59 Borderline >59 Desirable Cholesterol in LDL [Mass/Vol]143 mg/dLHigh0 - 130 mg/dLMillheim, [place] Comment on above: LDL Guidelines: <100 Desirable 100-129 Near to/above Desirable 130-159 Borderline >159 Undesirable Direct (measured) LDL and calculated LDL are not interchangeable tests. Cholesterol in VLDL [Mass/Vol]NOT REPORTEDHigh1 - 30 mg/dLMillheim, [place] Cholesterol.total/Cholesterol in HDL [Mass ratio]4.6 {ratio}<5[place], KYInterpretation and review of laboratory resultsAbnormalMillheim, [place] Triglyceride, Ykwucer318 mg/dLHigh<150[place], KYComment on above: Triglyceride Guidelines: <150 Desirable 150-199 Borderline 200-499 High >499 Very high Based on AHA Guidelines for fasting triglyceride, November 2011. POC Glucose Fingerstickon 19-52-7476Sraanqx [Mass/Vol]126 mg/vQXnhe46 - 105 mg/dLMercy Health- [place], KYInterpretation and review of laboratory resultsAbnormal [facility], ELHTVF-VuL-7lk 17-41-6621HCMW-CoV-2NormalOhiohealth Berger HospitalComment on above:Performed By: #### COVID #### [facility] [address] [place] [address] [phone] Sign Writer Hand: Fausto Mcmanus2,RapidNot DetectedNormalNOTDETMWashington HospitalComment on above:Result Comment: Rapid NAAT: The [...] management decisions. Fact sheet for Healthcare Providers: https://www.fda.gov/media/840074/download Fact sheet for Patients: https://www.fda.gov/media/797177/download Methodology: Isothermal Nucleic Acid AmplificationPerformed By: #### COVID #### [facility] [address] [place] [address] [phone] Sign Writer Hand: Toi Mcmanus Source.NASOPHARYNGEAL SWABNormalOhiohealth Berger HospitalComment on above:Performed By: #### COVID #### [facility] [address] [place] [address] [phone] Sign Writer Hand: Abimael Mcmanus [id number] I.cardiac [Mass/Vol]10 ng/LNormal0-14Ohiohealth Berger HospitalComment on above: Result Comment: High Sensitivity Troponin values cannot be compared with other Troponin methodologies. Patients with high levels of Biotin oral intake (i.e >5mg/day) may have falsely decreased Troponin levels. Samples collected within 8 hours of biotin intake may require additional information for diagnosis.Performed By: #### TROPI, #### [employer] [address] [place], [place] [phone] Sign Writer Hand: Brennan Mcmanus I.cardiac [Mass/Vol]NOT REPORTEDNormal <0.03Ohio[facility] Berger HospitalComment on above:Performed By: #### TROPI, #### [employer] [address] [place] [address] [phone] Sign Writer Hand: Brennan Mcmanus I.cardiac [Mass/Vol]10 ng/LNormal0-14 [facility] Berger HospitalComment on above:Result Comment: High Sensitivity Troponin values cannot be compared with other Troponin methodologies. Patients with high levels of Biotin oral intake (i.e >5mg/day) may have falsely decreased Troponin levels. Samples collected within 8 hours of biotin intake may require additional information for diagnosis.Performed By: #### CDP, CP, LIP, TROPI, LIPRF, GLYHGB #### [employer] [address] [place] [address] [phone] Sign Writer Hand: Brennan Mcmanus I.cardiac [Mass/Vol]NOT REPORTEDMount St. Mary Hospital, METroponin T.cardiac [Mass/Vol]NOT REPORTED<0.03 ng/mLMount St. Mary Hospital, KYTroponin, High Dbqxlubcaau90 ng/L0 - 14 ng/LMSumma Health Wadsworth - Rittman Medical Center, KYComment on above: High Sensitivity Troponin values cannot be compared with other Troponin methodologies. Patients with high levels of Biotin oral intake (i.e >5mg/day) may have falsely decreased Troponin levels. Samples collected within 8 hours of biotin intake may require additional information for diagnosis. Troponin I.cardiac [Mass/Vol]NOT REPORTEDNormal<0.03Ohio[facility] Berger HospitalComment on above:Performed By: #### CDP, CP, LIP, TROPI, LIPRF, GLYHGB #### [facility] [address] [place] [phone] Sign Writer Hand: Brennan Mcmanus I.cardiac [Mass/Vol]NOT REPORTEDMount St. Mary Hospital, MEElida T.cardiac [Mass/Vol]NOT REPORTED<0.03 ng/mLDiley Ridge Medical Centernin, High Onnwxyezwal96 ng/L0 - 14 ng/LMSumma Health Wadsworth - Rittman Medical Center, MEComment on above: High Sensitivity Troponin values cannot be compared with other Troponin methodologies. Patients with high levels of Biotin oral intake (i.e >5mg/day) may have falsely decreased Troponin levels. Samples collected within 8 hours of biotin intake may require additional information for diagnosis. UA w/Reflex Cultureon [id number] Acid,UrTRACEAbnormalNEGOhiohealth Berger HospitalComment on above:Performed By: #### CDP, CP, LIP, TROPI, LIPRF, GLYHGB #### [facility] [address] [place] [address] [phone] Sign Writer Hand: Brandon Anaya MDBilirubin, SemiQt,UrNegativeNormCity HospitalComment on above:Performed By: #### CDP, CP, LIP, TROPI, LIPRF, GLYHGB #### [facility] [address] [place] [address] [phone] Sign Writer Hand: NEHAL Mcmanusolor (U)YELLOWNormalYELMerSaint Agnes Medical CenterComment on above:Performed By: #### CDP, CP, LIP, TROPI, LIPRF, GLYHGB #### [facility] [address] [place] [address] [phone] Sign Writer Hand: Brandon Anaya MDGlucose Ql (U)NegativeNormalNEGOhiohealth Berger HospitalComment on above:Performed By: #### CDP, CP, LIP, TROPI, LIPRF, GLYHGB #### [facility] [address] [place] [phone] Sign Writer Hand: Brandon Anaya MDHemoglobin, UrNegativeNormalNEGOhiohealth Berger HospitalComment on above:Performed By: #### CDP, CP, LIP, TROPI, LIPRF, GLYHGB #### [facility] [address] [place] [address] [phone] Sign Writer Hand: Brandon Anaya MDLeukocyte esterase Test strip Ql (U)Negative NormalNEGOhiohealth Berger HospitalComment on above:Performed By: #### CDP, CP, LIP, TROPI, LIPRF, GLYHGB #### [facility] [address] [place] [address] [phone] Sign Writer Hand: Brandon Anaya MDNitrite,UrNegativeNormalNEGOhiohealth Berger HospitalComment on above:Performed By: #### CDP, CP, LIP, TROPI, LIPRF, GLYHGB #### [facility] [address] [place] [address] [phone] Sign Writer Hand: Bladimir Mcmanus (U)5.5 [pH]Normal5.0-8.0Ohiohealth Berger HospitalComment on above:Performed By: #### CDP, CP, LIP, TROPI, LIPRF, GLYHGB #### [facility] [address] [place] [address] [phone] Sign Writer Hand: BLADIMIR Mcmanusrotein Ql (U)1+AbnormalNEGOhiohealth Berger HospitalComment on above:Performed By: #### CDP, CP, LIP, TROPI, LIPRF, GLYHGB #### [facility] [address] [place] [address] [phone] Sign Writer Hand: FABIANA Mcmanuspecific gravity (U) [Rel density]1.086High 1.005-1.030Ohiohealth Berger HospitalComment on above:Performed By: #### CDP, CP, LIP, TROPI, LIPRF, GLYHGB #### [facility] [address] [place] [address] [place] [phone] Sign Writer Hand: Brandon Anaya MDTurbidityCLEARLafayette Regional Health CenteralCThe Bellevue HospitalComment on above:Performed By: #### CDP, CP, LIP, TROPI, LIPRF, GLYHGB #### [facility] [address] [place] [address] [phone] Sign Writer Hand: Brandon Anaya MDUrobilinogen,UrNormalNormalMercy Health Springfield Regional Medical CenterComment on above:Performed By: #### CDP, CP, LIP, TROPI, LIPRF, GLYHGB #### [facility] [address] [place] [address] [phone] Sign Writer Hand: NEHAL McmanusommentNOT REPORTEDOhioHealth O'Bleness HospitalComment on above:Performed By: #### CDP, CP, LIP, TROPI, LIPRF, GLYHGB #### [facility] [address] [place] [address] [phone] Sign Writer Hand: Brandon Anaya MDURINALYSIS, MICROon [id number], UANOT REPORTEDNoneMercy Health- [place], KYBacteria, UANOT REPORTEDNoneMercy [...] [place], [place]-[facility]- [place], KYUS ABDOMEN LIMITEDon [id number] ABDOMEN LIMITED EXAMINATION: RIGHT UPPER QUADRANT ULTRASOUND 10/09/2019 3:35 pm COMPARISON: None. 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 LIVER, GALLBLADDER, PANCREASon [id number]: RIGHT UPPER QUADRANT ULTRASOUND 10/09/2019 3:35 pm COMPARISON: None. 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 Mary HospitalShanearkable right upper quadrant ultrasound.[facility] Mary HospitalRadha Mhpn Incoming Radiant Results From [employer] - 10/09/2019 4:01 PM EDT EXAMINATION: RIGHT UPPER QUADRANT ULTRASOUND 10/09/2019 3:35 pm COMPARISON: None. 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 IMPRESSION: Unremarkable right upper quadrant ultrasound. [facility] [place], KYUrinalysis Reflex to Cultureon [id number] Urine NegativeNEGATIVESelect Medical [facility], [place], KYColor, UAYELLOWYELLOWSelect Medical [facility], [place], [place] Glucose, UrNegativeNEGATIVETrihealth [facility]hes[facility] Health- [place], KYInterpretation and review of laboratory resultsAbnormalTrihealth [facility] Health- [place], KYKetones Ql (U)TRACEAbnormal [facility] [place], KYLeukocyte esterase Test strip Ql (U)NegativeNEGATIVE [facility] [place], KYNitrite, UrineNegativeNEGATIVESelect [facility] [place], KYpH, UA5.5 [facility] [place], [place]Protein (U) [Mass/Vol]1+AbnormalNEGATIVETrihealth [facility]- [place], [place] Specific [place], UA1.086[facility]- [place], KYTurbidity UACLEARCLEARSelect [facility], [place], [place]Urinalysis CommentsNOT REPORTEDMer Health- [place], KYUrine Hgb NegativeNEGATIVETrihealth [facility]- [place], KYUrobilinogen, UrineNormalNormalTrihealth [facility]- [place], KYUrinalysis,Microon 10-09-2019-----NormalOhiohealth Berger Hospital Comment on above:Performed By: #### CDP, CP, LIP, TROPI, LIPRF, GLYHGB #### [address] [place], [place] [phone] Sign Writer Hand: Brandon Anaya MDEpithelial cells LM.HPF (Urine sed) [#/Area]10 TO 87Ideakk2-1YiataOhiohealth Berger HospitalComment on above:Performed By: #### CDP, CP, LIP, TROPI, LIPRF, GLYHGB #### [facility] [address] [place] [phone] Sign Writer Hand: DREW Mcmanus (U) [#/Vol]0 TO 2Wvqkrz5-6Volwk Herrick CampusComment on above:Performed By: #### CDP, CP, LIP, TROPI, LIPRF, GLYHGB #### [facility] [address] [place] [phone] Sign Writer Hand: TAMMY Mcmanus (U) [#/Vol]0 TO 8Bxzzle2-5DehzvOhiohealth Berger HospitalComment on above:Performed By: #### CDP, CP, LIP, TROPI, LIPRF, GLYHGB #### [address] [address] Sign Writer Hand: Hanh Mcmanusrphoudavid sediment LM Ql (Urine sed)NOT REPORTED NormalProMedica Flower HospitalComment on above:Performed By: #### CDP, CP, LIP, TROPI, LIPRF, GLYHGB #### [facility] [address] [place] [phone] Sign Writer Hand: Rita Mcmanus LM.HPF (Urine sed) [#/Area]NOT REPORTED NormalProMedica Flower HospitalComment on above:Performed By: #### CDP, CP, LIP, TROPI, LIPRF, GLYHGB #### [facility] [address] [place] [phone] Sign Writer Hand: NEHAL Mcmanusasts LM.LPF (Urine sed) [#/Area]NOT REPORTED Normal0-2MWashington HospitalComment on above:Performed By: #### CDP, CP, LIP, TROPI, LIPRF, GLYHGB #### [facility] [address] [place] [phone] Sign Writer Hand: Andrew Mcmanus LM Nom (Urine sed)NOT REPORTEDNormal NONEOhiohealth Berger HospitalComment on above:Performed By: #### CDP, CP, LIP, TROPI, LIPRF, GLYHGB #### [facility] [address] [place] [phone] Sign Writer Hand: Brandon Anaya MDEpithelial, RenalNOT QGJGEGMLLudjgc6AznzwOhiohealth Berger HospitalComment on above:Performed By: #### CDP, CP, LIP, TROPI, LIPRF, GLYHGB #### [facility] [address] [place] [phone] Sign Writer Hand: Yulia Mcmanus StrandsNOT REPORTEDNormalNONEMeWashington HospitalComment on above:Performed By: #### CDP, CP, LIP, TROPI, LIPRF, GLYHGB #### [facility] [address] [place] [phone] Sign Writer Hand: Brandon Anaya MDOther ObservationsNOT REPORTEDNormalNREQOhiohealth Berger HospitalComment on above:Performed By: #### CDP, CP, LIP, TROPI, LIPRF, GLYHGB #### [facility] [address] [place] [phone] Sign Writer Hand: Grant McmanushomonasNOT REPORTEDNormalNONWyandot Memorial HospitalComment on above:Performed By: #### CDP, CP, LIP, TROPI, LIPRF, GLYHGB #### [facility] [address] [place] [phone] Sign Writer Hand: Donna Mcmanus LM Ql (Urine sed)NOT REPORTEDNormalNONE Ohiohealth Berger HospitalComment on above:Performed By: #### CDP, CP, LIP, TROPI, LIPRF, GLYHGB #### [facility] [address] [place] [phone] Sign Writer Hand: LORIE Mcmanus ABDOMEN (KUB) (SINGLE AP VIEW)on 01-03-1629IB ABDOMEN (KUB) (SINGLE AP VIEW)EXAMINATION: ONE SUPINE [...] Signed by: Naga Browning MD 10/09/19 Final resultNoFlower HospitalNo evidence of bowel obstruction.[facility] St. Mary HospitalCLARAEXAMINATION: ONE SUPINE XRAY VIEW(S) OF THE ABDOMEN 10/09/2019 7:17 pm COMPARISON: None. HISTORY: ORDERING SYSTEM PROVIDED HISTORY: r/o SBO TECHNOLOGIST PROVIDED HISTORY: r/o SBO Reason for Exam: port Supine FINDINGS: Nonspecific, nonobstructive bowel gas pattern with paucity of bowel gas. Atherosclerotic calcifications. Retained contrast in the urinary bladder. No acute osseous abnormality.[facility]. Mary HospitalRadha Mhpn Incoming Radiant Results From [facility]/Lab21s - 10/09/2019 7:35 PM EDT EXAMINATION: ONE [...] IMPRESSION: No evidence of bowel obstruction. [facility]. Mary HospitalCLARAAldosteroneon 80-74-0627Lecoskbxlsv8.8 ng/dLNoMemorial HospitalComment on above:Result Comment: (NOTE)INTERPRETIVE INFORMATION: Aldosterone, [...] c referenceintervals for this test in the [employer] Laboratory Test Directory(Antenna).Performed by [facility],[address] [place] [phone] dpv.Antenna, Nik Rosas MD, Lab.DirectorPerformed at [facility] [address] [place] [address] [phone] ([phone] Performed By: #### CORTTejinder ####[facility] [place] [address] #### MARYAM, AREN ####[facility] [place] [address] Renin Activityon 54-97-6172Kzxfw Activity0.1 ng/mL/hrNormZanesville City HospitalComment on above:Result Comment: (NOTE)INTERPRETIVE INFORMATION: Renin [...] activity when angiotensinogen isdecreased.See Compliance Statement D: www.Antenna/CSPerformed by [facility],[address] [place] [phone] ltm.Antenna, Nik Rosas MD, Lab. DirectorPerformed at [facility] [address] [place] [address] ([phone] By: #### CORTI ####[address] [place], [place] [id number] #### AALD, AREN ####[facility] [place] [address] Basic Metab w/rfx MGon 06-29-2017(cont.)NormalMerKeenan Private HospitalComment on above:Result Comment: Average GFR for 70 or more years old: 75 mL/min/1.73sq mChronic Kidney Disease: <60 mL/min/1.73sq mKidney failure: <15 mL/min/1.73sq meGFR calculated using average adult body mass. Additional eGFR calculator available at:http://www.[employer].com/multiple_crcl_2012.htmPerformedat [address] [address] Performed By: #### CDP, BMPX, TROPI ####[address] [address] Anion gap10 mmol/LNormal9-17Uc HealthComment on above:Performed By: #### CDP, BMPX, TROPI ####[address] [address] Apadyvg8.1 mg/dLNormal8.6-10.4Uc HealthComment on above:Performed By: #### CDP, BMPX, TROPI ####[address] [address] Mzpyfceo039 mmol/QEkppgt39-168WvxzdKeenan Private HospitalComment on above:Performed By: #### CDP, BMPX, TROPI ####[address] [address] XS141 mmol/TGbxqvw12-27YkhwvUc HealthComment on above:Performed By: #### CDP, BMPX, TROPI ####[address] [address] Aqaoazxcpt7.66 mg/dLNormal0.50-0.90 [facility] HealthComment on above:Performed By: #### CDP, BMPX, TROPI ####[address] [address] eGFR (non-black)mL/min/{1.73_m2}Normal>60[facility] Medical CenterComment on above: Performed By: #### CDP, BMPX, TROPI ####[address] [address] Glucose mass ixuo645 mg/vSGnmr34-75GrxjvTriHealthComment on above:Performed By: #### CDP, BMPX, TROPI ####[address] [address] Potassium molar conc4.1 mmol/LNormal3.7-5.3MercTriHealthComment on above: Performed By: #### CDP, BMPX, TROPI ####[address] [address] Xzvwyb797 mmol/OIzvppv404-721JpsfuKeenan Private HospitalComment on above:Performed By: #### CDP, BMPX, TROPI ####[address] [address] Urea xsjvuxxp74 mg/dLNormal8-23Uc HealthComment on above:Performed By: #### CDP, BMPX, TROPI ####[address] [address] BUN/CRE RatioNOT REPORTEDNormal9-20[facility] Comment on above:Performed By: #### CDP, BMPX, TROPI ####[address] [address] Staging:NOT REPORTEDNormal Uc HealthComment on above:Performed By: #### CDP, BMPX, TROPI ####[address] [address] CBC with Diffon 64-98-4699Kpz. Basophil0.00 k/uLNormal0.0-0.2MercTriHealthComment on above:Result Comment: Performed at [address] [place] [address] Performed By: #### CDP, BMPX, TROPI ####[address] [phone].Neutrophil (Seg)3.80 k/uLNormal1.3-9.1[facility]y [facility] Comment on above:Performed By: #### CDP, BMPX, TROPI ####[address] [address] Basophils/100 WBC Auto (Bld)1 %Normal0-2[facility] Medical CenterComment on above:Performed By: #### CDP, BMPX, TROPI ####[address] [address] Hedmrcpyghy4.20 10*3/uLNormal0.0-0.4Ohiohealthcy [facility] Comment on above:Performed By: #### CDP, BMPX, TROPI ####[address] [address] Eosinophils/100 leukocytes 2 %Normal0-4Uc HealthComment on above:Performed By: #### CDP, BMPX, TROPI ####[address] [phone] distribution width Auto Ratio (RBC)14.5 %Bpcuqy49.5-14.9 [facility] HealthComment on above:Performed By: #### CDP, BMPX, TROPI ####[address] [address] Erythrocytes (RBC)4.36 10*6/uLNormal4.0-5.2[facility] Medical CenterComment on above:Performed By: #### CDP, BMPX, TROPI ####[address] [address] Hematocrit (HCT)38.3 %Hfnwti65-45YqpccUc HealthComment on above:Performed By: #### CDP, BMPX, TROPI ####[address] [address] Hemoglobin mass conc (Bld)12.9 g/oQGavbqa83.0-16.0[facility] Comment on above:Performed By: #### CDP, BMPX, TROPI ####[address] [address] Ysidlxmcmfj3.20 10*3/uL Normal1.0-4.8MerKeenan Private HospitalComment on above:Performed By: #### CDP, BMPX, TROPI ####[address] [phone]/100 dydflfezoi54 %Lugosg16-86ZopczUc Health Comment on above:Performed By: #### CDP, BMPX, TROPI ####[address] [address] JLY50.5 obGqfwmp67-05JjnteKeenan Private HospitalComment on above:Performed By: #### CDP, BMPX, TROPI ####[address] [address] MCHC mass conc (RBC)33.6 g/vHVtljfe08-04RqdheKeenan Private HospitalComment on above: Performed By: #### CDP, BMPX, TROPI ####[address] [address] BNW58.8 wXKcivlk54-490GpudwKeenan Private HospitalComment on above:Performed By: #### CDP, BMPX, TROPI ####[facility] [address] [address] Dytmeesvv7.50 10*3/uLNormal0.1-1.3[facility] CenterComment on above:Performed By: #### CDP, BMPX, TROPI ####[address] [address] Monocytes/100 leukocytes8 %High1-7[facility] Comment on above:Performed By: #### CDP, BMPX, TROPI ####[address] [address] Neutrophil (Seg)57 %Normal 36-66MerKeenan Private HospitalComment on above:Performed By: #### CDP, BMPX, TROPI ####[address] [phone] mean volume (PMV)8.5 fLNormal6.0-12.0Uc HealthComment on above:Performed By: #### CDP, BMPX, TROPI ####[address] [address] Razlgtzpw677 10*3/rIPjuwog209-284QnxyhKeenan Private HospitalComment on above:Performed By: #### CDP, BMPX, TROPI ####[address] [address] WBC (Leukocytes)6.7 10*3/uLNormal3.5-11.0Uc HealthComment on above:Performed By: #### CDP, BMPX, TROPI ####[address] [address] Auto Diff PerformedNOT REPORTEDSalem City HospitalComment on above:Performed By: #### CDP, BMPX, TROPI ####[address] [place] [address] Erythrocyte morphologyNOT REPORTEDNoMemorial HospitalCombronson battle [facility] hospital on above:Performed By: #### CDP, BMPX, TROPI ####[address] [address] Erythrocytes (RBC) NOT REPORTEDNormalUc HealthComment on above:Performed By: #### CDP, BMPX, TROPI ####[address] [address] Granulocytes/100 WBC (Bld)NOT REPORTEDNormal0.00-0.30Uc HealthCombronson battle creek hospital on above:Performed By: #### CDP, BMPX, TROPI ####[address] [address] Immature granulocytes #/vol (Bld)NOT ANVKPVGQYfnxuh6YigmuSelect [facility] on above:Performed By: #### CDP, BMPX, TROPI ####[address] [address] PlateletsNOT REPORTEDNoAkron Children's Hospital on above:Performed By: #### CDP, BMPX, TROPI ####[address] [address] WBC Morphology NOT REPORTEDNormalACMC Healthcare System Glenbeighment on above:Performed By: #### CDP, BMPX, TROPI ####[address] [address] Troponinon 05-42-9949Nzsmortg I.cardiac mass concNormZanesville City HospitalComment on above:Result Comment: Reference Range: <0.03 Within reference range. 0.03-0.09 Possible myocardial damage.Repeat at appropriate intervals to rule out chronic elevation. >= 0.10 Indicative of myocardial damage.Patients with high levels of Biotin oral intake (i.e >5mg/day) may have falsely decreased Troponin T levels. Samples collected within 8 hours of biotin intake may require additional information for diagnosis.Performed at [address] [address] [phone] By: #### CDP, BMPX, TROPI ####[address] [address] Troponin T.cardiac mass concug/LNormal<0.03Uc HealthComment on above:Result Comment: Troponin T results cannot be compared to Troponin-I results.Performed By: #### CDP, BMPX, TROPI ####[address] [phone] I.cardiac mass concNormalMerKeenan Private Hospital Comment on above:Result Comment: Reference Range: <0.03 Within reference range. 0.03-0.09 Possible myocardial damage.Repeat at appropriate intervals to rule out chronic elevation. >= 0.10 Indicative of myocardial damage.Patients with high levels of Biotin oral intake (i.e >5mg/day) may have falsely decreased Troponin T levels. Samples collected within 8 hours of biotin intake may require additional information for diagnosis.Performed at [address] [address] [phone] By: #### TROPI ####[address] [address] Troponin T.cardiac mass concug/LNormal<0.03Uc HealthComment on above:Result Comment: Troponin T results cannot be compared to Troponin-I results.Performed By: #### TROPI ####[address] [phone] CHEST (2 VW)on 50-92-1706WO CHEST (2 VW)EXAMINATION:TWO VIEWS OF THE CHEST, [...] cardiopulmonary findings.Interpreted by:FABIANA Oliverigned by:Zaire Dominguez MD//18Final resultNormalMerKeenan Private Hospital Basic Metab w/rfx MGon 06-28-2017(cont.)NormalUc HealthComment on above:Result Comment: Average GFR for 70 or more years old: 75 mL/min/1.73sq mChronic Kidney Disease: <60 mL/min/1.73sq mKidney failure: <15 mL/min/1.73sq meGFR calculated using average adult body mass. Additional eGFR calculator available at:http://www.[employer]/multiple_crcl_2012.htmPerformedat [facility] [address] [place] [address] Performed By: #### KRIS, BMPX ####[address] [address] Anion gap13 mmol/LNormal9-17Uc HealthComment on above:Performed By: #### CDP, BMPX ####[address] [address] Calcium8.7 mg/dLNormal 8.6-10.4Uc HealthComment on above:Performed By: #### KRIS, BMPX ####[address] [place] [address] Pafbomku745 mmol/KLpayuo42-017YihveUc HealthComment on above: Performed By: #### CDP, BMPX ####[address] [place] [address] EN416 mmol/LLigthj12-20RkjhvKeenan Private HospitalComment on above:Performed By: #### CDP, BMPX ####[address] [address] Knmnoqfuli6.53 mg/dLNormal 0.50-0.90Uc HealthComment on above:Performed By: #### CDP, BMPX ####[address] [address] eGFR (non-black)mL/min/{1.73_m2}Normal>60MerKeenan Private HospitalComment on above:Performed By: #### CDP, BMPX ####[address] [address] Glucose mass brwb705 mg/vWJizs09-14Lyxcj [facility] CenterComment on above:Performed By: #### CDP, BMPX ####[address] [address] Potassium molar conc3.7 mmol/LNormal3.7-5.3[facility] CenterComment on above:Performed By: #### CDP, BMPX ####[address] [address] Uywxpv326 mmol/CZkhdlg872-460ZnmznKeenan Private HospitalComment on above:Performed By: #### CDP, BMPX ####[address] [address] Urea njimecay71 mg/dLNormal8-23Uc HealthComment on above:Performed By: #### CDP, BMPX ####[address] [phone]/CRE RatioNOT REPORTEDNormal9-20[facility]c HealthComment on above:Performed By: #### CDP, BMPX ####[address] [phone]:NOT REPORTEDNormalUc HealthComment on above:Performed By: #### CDP, BMPX ####[address] [phone] Metabolic Profon 06-28-2017(cont.)Normal [facility] HealthComment on above:Result Comment: Average GFR for 70 or more years old: 75 mL/min/1.73sq mChronic Kidney Disease: <60 mL/min/1.73sq mKidney failure: <15 mL/min/1.73sq meGFR calculated using average adult body mas s. Additional eGFR calculator available at:http://www.[employer]/multiple_crcl_2012.htmPerformedat [place] [address] [place] [address] ([phone] By: #### CDP, BMP, TROPI, TSHX ####[address] [phone] gap13 mmol/LNormal9-17Uc HealthComment on above:Performed By: #### CDP, BMP, TROPI, TSHX ####[address] [phone] mg/dL Normal8.6-10.4Uc HealthComment on above:Performed By: #### CDP, BMP, TROPI, TSHX ####[address] [address] Lhflnyym206 mmol/KEhqdmg78-427NdmrlUc HealthComment on above:Performed By: #### CDP, BMP, TROPI, TSHX ####[address] [address] DT410 mmol/AFaaara92-37 [facility] HealthComment on above:Performed By: #### CDP, BMP, TROPI, TSHX ####[address] [address] Cbbujsaakt1.61 mg/dLNormal0.50-0.90[facility] Comment on above:Performed By: #### CDP, BMP, TROPI, TSHX ####[address] [address] eGFR (non-black) mL/min/{1.73_m2}Normal>60MerKeenan Private HospitalComment on above:Performed By: #### CDP, BMP, TROPI, TSHX ####[address] [address] Glucose mass rqns039 mg/jHKdko47-16Iiqda [facility] CenterComment on above:Performed By: #### CDP, BMP, TROPI, TSHX ####[address] [address] Potassium molar conc4.7 mmol/LNormal3.7-5.3[facility]y [facility] CenterComment on above:Performed By: #### CDP, BMP, TROPI, TSHX ####[address] [address] Eiwnbk544 mmol/LNormal 135-144MerKeenan Private HospitalComment on above:Performed By: #### CDP, BMP, TROPI, TSHX ####[address] [address] Urea cvhewlkz06 mg/dLNormal8-23[facility] Comment on above:Performed By: #### CDP, BMP, TROPI, TSHX ####[address] [phone]/CRE RatioNOT REPORTED Normal9-20[facility]c HealthComment on above:Performed By: #### CDP, BMP, TROPI, TSHX ####[address] [phone]:NOT REPORTEDNormalUc HealthComment on above:Performed By: #### CDP, BMP, TROPI, TSHX ####[address] [phone] with Diffon 06-28-2017 Abs. Basophil0.00 k/uLNormal0.0-0.2[facility] CenterComment on above: Result Comment: Performed at [address] [address] [phone] By: #### CDP, BMPX ####[address] [phone].Neutrophil (Seg)5.50 k/uLNormal1.3-9.1[facility] CenterComment on above:Performed By: #### CDP, BMPX ####[address] [phone]/100 WBC Auto (Bld)1 %Normal0-2[facility] CenterComment on above:Performed By: #### CDP, BMPX ####[address] [phone] 10*3/uL Normal0.0-0.4Uc HealthComment on above:Performed By: #### CDP, BMPX ####[address] [phone]/100 leukocytes2 %Normal0-4[facility] HealthCombronson battle creek hospital on above:Performed By: #### CDP, BMPX ####[address] [address] Erythrocyte distribution width Auto Ratio (RBC) 14.8 %Xgxmri67.5-14.9[facility] HealthCombronson battle creek hospital on above:Performed By: #### CDP, BMPX ####[address] [address] Erythrocytes (RBC)4.47 10*6/uLNormal4.0-5.2[facility] CenterComment on above:Performed By: #### CDP, BMPX ####[address] [address] Hematocrit (HCT)39.8 % Ncomhk72-97XzmthUc HealthCombronson battle creek hospital on above:Performed By: #### CDP, BMPX ####[address] [phone] mass conc (Bld)13.3 g/jEBurlbq73.0-16.0Uc HealthComment on above:Performed By: #### CDP, BMPX ####[address] [address] Ujaxazcgciy4.90 10*3/uL Normal1.0-4.8[facility] HealthCombronson battle creek hospital on above:Performed By: #### CDP, BMPX ####[address] [phone]/100 nqxzqovbdd06 %Spf97-44SzibqUc HealthComment on above:Performed By: #### CDP, BMPX ####[address] [place] [address] YWW51.7 wjYkaldj22-78ThzjdUc Health Comment on above:Performed By: #### CDP, BMPX ####[address] [place] [address] MCHC mass conc (RBC)33.3 g/dLNormal 31-37Uc HealthComment on above:Performed By: #### CDP, BMPX ####[address] [place] [address] MCV 89.1 gVRpyfje16-888KyxarUc HealthComment on above:Performed By: #### CDP, BMPX ####[address] [place] [address] Nmfrgmsde5.50 10*3/uLNormal0.1-1.3MMarymount Hospital Comment on above:Performed By: #### CDP, BMPX ####[address] [place] [address] Monocytes/100 leukocytes6 %Normal1-7 [facility] HealthComment on above:Performed By: #### CDP, BMPX ####[address] [address] Neutrophil (Seg)68 %Fqci14-90BxmfsUc HealthComment on above: Performed By: #### CDP, BMPX ####[address] [address] Platelet mean volume (PMV)8.6 fLNormal6.0-12.0 [facility] on above:Performed By: #### CDP, BMPX ####[address] [address] Lifjiazps209 10*3/qAWwapke110-174MrjhgUc HealthCombronson battle creek hospital on above: Performed By: #### CDP, BMPX ####[address] [address] WBC (Leukocytes)8.0 10*3/uLNormal3.5-11.0[facility] HealthCombronson battle creek hospital on above:Performed By: #### CDP, BMPX ####[address] [address] Auto Diff PerformedNOT REPORTEDNoAkron Children's Hospital on above:Performed By: #### CDP, BMPX ####[address] [address] Erythrocyte morphologyNOT REPORTEDNoMemorial HospitalCombronson battle creek hospital on above:Performed By: #### CDP, BMPX ####[address] [address] Erythrocytes (RBC)NOT REPORTEDNormalACMC Healthcare System Glenbeighment on above:Performed By: #### CDP, BMPX ####[address] [phone]/100 WBC (Bld)NOT REPORTEDNormal0.00-0.30[facility] on above:Performed By: #### CDP, BMPX ####[address] [address] Immature granulocytes #/vol (Bld)NOT LCGNUKKTNovotb0Bdqwf[address] [place] [address] on above: Performed By: #### CDP, BMPX ####[address] [address] PlateletsNOT REPORTEDNormalMercy [facility] Medical CenterComment on above:Performed By: #### CDP, BMPX ####[address] [address] WBC MorphologyNOT REPORTED NormalUc HealthComment on above:Performed By: #### CDP, BMPX ####[address] [address] Abs. Basophil0.10 k/uLNormal0.0-0.2[facility] CenterComment on above:Result Comment: Performed at [address] [address] Performed By: #### CDP, BMP, TROPI, TSHX ####[address] [address] Abs.Neutrophil (Seg)4.20 k/uLNormal1.3-9.1[facility] CenterComment on above:Performed By: #### CDP, BMP, TROPI, TSHX ####[address] [address] Basophils/100 WBC Auto (Bld)1 %Normal0-2[facility] CenterComment on above:Performed By: #### CDP, BMP, TROPI, TSHX ####[address] [address] Ebevvxxeqlp7.20 10*3/uLNormal0.0-0.4[facility] Comment on above:Performed By: #### CDP, BMP, TROPI, TSHX ####[address] [address] Eosinophils/100 leukocytes 2 %Normal0-4[facility] CenterComment on above:Performed By: #### CDP, BMP, TROPI, TSHX ####[address] [address] Erythrocyte distribution width Auto Ratio (RBC)14.7 %Normal 11.5-14.9Uc HealthComment on above:Performed By: #### CDP, BMP, TROPI, TSHX ####[address] [address] Erythrocytes (RBC)4.38 10*6/uLNormal4.0-5.2[facility] CenterComment on above:Performed By: #### CDP, BMP, TROPI, TSHX ####[address] [address] Hematocrit (HCT) 38.7 %Vwxglr36-36MvipuUc HealthComment on above:Performed By: #### CDP, BMP, TROPI, TSHX ####[address] [address] Hemoglobin mass conc (Bld)12.9 g/tBMajxdx82.0-16.0Uc HealthComment on above:Performed By: #### CDP, BMP, TROPI, TSHX ####[address] [address] Lymphocytes2.60 10*3/uLNormal1.0-4.8MerKeenan Private HospitalCombronson battle creek hospital on above: Performed By: #### CDP, BMP, TROPI, TSHX ####[address] [address] Lymphocytes/100 %Normal 24-44Uc HealthComment on above:Performed By: #### CDP, BMP, TROPI, TSHX ####[address] [address] LPM68.6 itBkbixp27-91TbzveUc HealthComment on above:Performed By: #### CDP, BMP, TROPI, TSHX ####[address] [address] MCHC mass conc (RBC)33.4 g/wGIgkvfu47-46GdizdKeenan Private HospitalComment on above:Performed By: #### CDP, BMP, TROPI, TSHX ####[address] [address] UMH87.4 qVMddvji55-323UzalwKeenan Private HospitalComment on above:Performed By: #### CDP, BMP, TROPI, TSHX ####[address] [address] Rodmctqyn9.60 10*3/uL Normal0.1-1.3[facility] CenterComment on above:Performed By: #### CDP, BMP, TROPI, TSHX ####[address] [address] Monocytes/100 leukocytes8 %High1-7[facility] Comment on above:Performed By: #### CDP, BMP, TROPI, TSHX ####[address] [address] Neutrophil (Seg)55 %Normal 36-66MerKeenan Private HospitalComment on above:Performed By: #### CDP, BMP, TROPI, TSHX ####[address] [address] Platelet mean volume (PMV)8.6 fLNormal6.0-12.0MerKeenan Private HospitalComment on above:Performed By: #### CDP, BMP, TROPI, TSHX ####[address] [address] Dscabyzug806 10*3/hXUyxpix266-461HknflUc HealthComment on above:Performed By: #### CDP, BMP, TROPI, TSHX ####[address] [address] WBC (Leukocytes)7.7 10*3/uLNormal3.5-11.0Uc HealthComment on above:Performed By: #### CDP, BMP, TROPI, TSHX ####[address] [address] Auto Diff PerformedNOT REPORTEDNormalUc HealthComment on above: Performed By: #### CDP, BMP, TROPI, TSHX ####[address] [address] Erythrocyte morphologyNOT REPORTED NormalUc HealthComment on above:Performed By: #### CDP, BMP, TROPI, TSHX ####[address] [address] Erythrocytes (RBC)NOT REPORTEDNormalUc Health Comment on above:Performed By: #### CDP, BMP, TROPI, TSHX ####[address] [address] Granulocytes/100 WBC (Bld) NOT REPORTEDNormal0.00-0.30Uc HealthComment on above:Performed By: #### CDP, BMP, TROPI, TSHX ####[address] [address] Immature granulocytes #/vol (Bld)NOT REPORTED Buzoke9XkgslUc HealthComment on above:Performed By: #### CDP, BMP, TROPI, TSHX ####[address] [phone] REPORTEDNormalMerKeenan Private HospitalComment on above:Performed By: #### CDP, BMP, TROPI, TSHX ####[address] [place] [phone] MorphologyNOT REPORTED NormalUc HealthComment on above:Performed By: #### CDP, BMP, TROPI, TSHX ####[address] 4 [phone] 90-22-7511Rhtvkoiu2.7 ug/dLNormal2.7-18.4Uc HealthComment on above:Result Comment: Cortisol Reference Range: AM 6.0-18.4 PM 2.7-10.5Performed at [address] [address] Performed By: #### CORTI ####[address] [address] #### AALD, AREN ####[address] [phone] Info.NOT REPORTEDNormalMerKeenan Private HospitalCombronson battle [facility] on above:Performed By: #### CORTI ####[address] [address] #### AALD, AREN ####[address] [address] Renin Activityon 63-86-5602Wxhlqvq:NOT REPORTEDNormalMerKeenan Private HospitalCombronson battle creek hospital on above:Performed By: #### CORTI ####[address] [address] #### AALD, AREN ####[address] [address] TSH w/reflex to FT4on 47-36-5314Adjdgue stimulating hormone (TSH)2.65 m[IU]/LNormal 0.30-5.00Uc HealthComment on above:Result Comment: Performed at [address] [address] [phone] By: #### CDP, BMP, TROPI, TSHX ####[address] [address] Troponinon 06-28-2017 Troponin I.cardiac mass concNormZanesville City HospitalComment on above: Result Comment: Reference Range: <0.03 Within reference range. 0.03-0.09 Possible myocardial damage.Repeat at appropriate intervals to rule out chronic elevation. >= 0.10 Indicative of myocardial damage.Patients with high levels of Biotin oral intake (i.e >5mg/day) may have falsely decreased Troponin T levels. Samples collected within 8 hours of biotin intake may require additional inform ation for diagnosis.Performed at [address] [address] [phone] By: #### TROPI ####[address] [address] Troponin T.cardiac mass concug/LNormal<0.03Uc HealthComment on above:Result Comment: Troponin T results cannot be compared to Troponin-I results.Performed By: #### TROPI ####[address] [address] Troponin I.cardiac mass concNormalUc Health Comment on above:Result Comment: Reference Range: <0.03 Within reference range. 0.03-0.09 Possible myocardial damage.Repeat at appropriate intervals to rule out chronic elevation. >= 0.10 Indicative of myocardial damage.Patients with high levels of Biotin oral intake (i.e >5mg/day) may have falsely decreased Troponin T levels. Samples collected within 8 hours of biotin intake may require additional information for diagnosis.Performed at [address] [address] [phone] By: #### TROPI ####[address] [phone] T.cardiac mass concug/LNormal<0.03[facility] on above:Result Comment: Troponin T results cannot be compared to Troponin-I results.Performed By: #### TROPI ####[address] [phone] I.cardiac mass concNormalMerAccess Hospital [place] on above:Result Comment: Reference Range: <0.03 Within reference range. 0.03-0.09 Possible myocardial damage.Repeat at appropriate intervals to rule out chronic elevation. >= 0.10 Indicative of myocardial damage.Patients with high levels of Biotin oral intake (i.e >5mg/day) may have falsely decreased Troponin T levels. Samples collected within 8 hours of biotin intake may require additional information for diagnosis.Performed at [address] [address] [phone] By: #### CDP, BMP, TROPI, TSHX ####[address] [phone] T.cardiac mass concug/LNormal<0.03[facility] on above:Result Comment: Troponin T results cannot be compared to Troponin-I results.Performed By: #### CDP, BMP, TROPI, TSHX ####[address] [phone] w/Reflex Cultureon 96-36-7122Copodwbqhjifg mass conc NegativeNormalNEGMercy Pinal HospitalComment on above:Performed By: #### UAX ####[address] [place] [address] Bilirubin (direct)NegativeNormalBerger HospitalCombronson battle creek hospital on above: Performed By: #### UAX ####[address] [place] [address] CommentMicroscopic exam not performed based on chemical results unless requested inNormalUc HealthComment on above: Result Comment: original order.Performed at [address] [place] [address] [phone] By: #### UAX ####[address] [place] [address] Hemoglobin mass conc (Bld)NegativeNormalNEGUc HealthComment on above: Performed By: #### UAX ####[address] [place] [address] Nitrite,UrNegativeNormalNEGUc HealthComment on above:Performed By: #### UAX ####[address] [place] [address] TurbidityCLEARNormalCLEARMerKeenan Private HospitalComment on above:Performed By: #### UAX ####[address] [place] [address] Urine, colorYELLOWNormal YELMercy Premier Health Atrium Medical CenterComment on above:Performed By: #### UAX ####[address] [place] [address] Urine, glucose presenceNegativeNormalNEGUc HealthComment on above:Performed By: #### UAX ####[address] [place] [address] Urine, leukocyte esterase presenceNegativeNormalNEGUc HealthComment on above:Performed By: #### UAX ####[address] [address] Urine, pH5.5 [pH]Normal 5.0-8.0Uc HealthComment on above:Performed By: #### UAX ####[address] [address] Urine, protein presenceNegativeNormalNEGUc HealthComment on above:Performed By: #### UAX ####[address] [address] Urine, specific gravity1.905Mrqwta8.000-1.030 Uc HealthComment on above:Performed By: #### UAX ####[address] [address] Urobilinogen,Ur NormalNormalNORMUc HealthComment on above:Performed By: #### UAX ####[address] [address] Vital Signs Date TimeVital SignValuePerforming UabykitcxMnqjmhgx79-50-6475 10:25-0500Body blixcj257.56 cmMD Velasquez [employer] Work Phone: [facility]02-13-2024 10:25-0500 Body mass index (BMI) [Ratio]26.7 kg/m2MD Velasquez [employer] Work Phone: [facility]02-13-2024 10:25-0500 Body hagwzv53.76 kgMD Velasquez [employer] Work Phone: [facility]08-22-2020 15:45-0400 BP Rjqlywttw35 mm[Hg][facility], QD67-61-6600 15:45-0400BP Zpwyzjax585 mm[Hg][facility], VX02-02-5576 08:25-0400Body Tmgrfkohyni11.01 [degF][facility], SY61-97-2977 08:25-0400 Pulse (Heart Rate)70 /minOur Community Hospital, QA64-48-5844 08:25-0400 Pulse Kmgllwoi27 %[facility], EN44-37-0250 08:25-0400 Respiratory Rate20 /minOur [facility], GG97-97-1912 06:15-0400BMI (Body Mass Index)25.51 kg/b4IqwzlaqaOur Community Hospital, AS33-81-8638 06:15-0400Body yvuoqv95.4 kgOur Community Hospital, DH69-59-0216 15:22-9360Mbspfz828.6 cmCourFisher-Titus Medical Center, YF40-07-4759 16:07-0400 Respiratory rateNOT REPORTEDRANMercy Health St. [facility] Comment on above:Performed By: #### CDP, CP, LIP, TROPI, LIPRF, GLYHGB #### [address] [place] [address] Sign Writer Hand: Brandon Anaya MD08-19-2020 14:24-0400Respiratory rateNOT REPORTEDCoCorey Hospital, [place] Encounters Encounter DateEncounter TypeCare ProviderFacilityStart: 12-29-2024 End: 31-70-9234bzpiyyvzglOzidsp A Diab ([facility])-LAB Path Spec [place] HospStart: 12-29-2024 End: 58-14-4358Qrckwwdn ReferredJaclyn Kimble ([facility]) -LAB Path Spec [place] HospStart: 12-22-2024 End: 26-59-3755neohbeijmbUALEIGenesis Hospitaltart: 77-44-6575Pspzkvvsqu and management of inpatientMUNIER NAZZALUniSelect Medical [facility] Medical CenterStart: 08-26-2024 End: 51-23-3436Qlddfbsxwv and management of inpatientMUNIER A[facility] Healthcare Systemtart: 08-17-2024 End: 35-35-4884olswlceffnGhocrmv M HoyFacility:[facility] Start: 08-04-2024 End: 25-10-8161anpsaxvqptQQOIMRBethesda North Hospitaltart: 07-22-2024 End: 68-96-7584yzxmoeumudVWCTAYJOhioHealth Shelby Hospital Start: 05-70-4501wmazxcvwpyWYNMD KHPike Community Hospitaltart: 95-85-7601opcbxytomnLQMSVGXUniversity Hospitals St. John Medical Centertart: 06-06-2024 End: 38-30-3057ubayjyezypSFGHGPCentervilletart: 06-06-2024 End: 66-62-9466mfjvczjjytFYWJNO NAUniversity Hospitals Elyria Medical Centertart: 05-31-2024 End: 73-32-3136yiccksvyfnEHQZGDFVeterans Health Administration Start: 05-20-2024 End: 75-97-1082thdsarwqyfVFSXV A PETITTINot AvailableStart: 05-20-2024 End: 48-46-2972Rvxuyv outpatient visit 25 minutesEmminerva Red MD Work Phone: noms SWS DERMComment on above:Other atopic dermatitis (Primary Dx); High risk medication useStart: 05-20-2024 End: 58-92-4373Moiask flowsheetEmminerva Red MD Work Phone: noms SWS DERMStart: 05-20-2024 End: 33-96-0004Loxacq flowsheetEmminerva Red MD Work Phone: noms SWS DERMStart: 00-40-4581wcxdifpqvrJMEV HORRegency Hospital Companytart: 05-11-2024 End: 86-66-4011hzbqdbweboQLRTO AKRASelect Medical OhioHealth Rehabilitation Hospital - Dublintart: 20-40-1550llopyezmrzAWMOWFP ROBERTSProMedica Flower Hospitaltart: 03-26-2024 End: 95-24-4173oxbwqmmcagIJQGB KHOURChillicothe Hospitaltart: 03-09-2024 End: 02-20-6006thcupgkwgcDDDR CHAAdena Regional Medical Centertart: 10-40-3202fdbnbnjkkmFHME ELTARegional Medical Centertart: 80-70-4693Yfswfmnodd and management of inpatientOMAR [facility] Hospitaltart: 26-04-1206Yutiitfpsa and management of inpatientSHOBHA [facility] Main Campustart: 24-01-7483Pwrjgtozdr and management of inpatientSHOBHA [facility] Main Campustart: 09-71-5241Aotorozhfc and management of inpatientKIMBERLY [facility] Memorial Hospitaltart: 72-46-6257Quxmerjdae and management of inpatientZAID [facility] Centertart: 61-70-7641Pmtwnadnoc and management of inpatientTHOMAS D NOEWilson Healthtart: 51-39-2047Punrpaomgt and management of inpatientZAID [facility] Centertart: 94-53-6806Kmltykapik and management of inpatientZAID [facility] Centertart: 60-99-7708Rsiufekrly and management of inpatientWHITNEY BEACHClinton Memorial Hospitaltart: 02-02-2024 Evaluation and management of inpatientNASIR ALIProMedica Flower Hospitaltart: 59-51-6008Nufsmkvuyu and management of inpatientOMAR [facility] Systemtart: 02-02-2024 End: 81-33-5648Hszuwofzvf and management of inpatientOMAR [facility] Hospitaltart: 02-01-2024 End: 36-94-9191izvpeeynmfURUPTQ NAZZPomerene Hospitaltart: 69-97-2881Jcxtivuits and management of inpatientJAMIE ЕЛЕНАMARCO ANTONIOERProMedica Flower Hospitaltart: 13-41-3434Isxgxqxedz and management of inpatient RYNE TURNERProMedica Flower Hospitaltart: 39-25-2908Fecvcmvmq department patient visitKSYSABELNCJames Diley Ridge Medical Center Start: 34-66-4880Mosgfdomk department patient visitKettering Health Hamiltontart: 01-27-2024 End: 53-32-8001Uloimkmnyr and management of inpatientOMAR HORANIProMedica Flower Hospitaltart: 34-21-9629ljjunhgidaBILTGYF [facility] Hospitaltart: 01-16-2024 End: 95-14-5002Qnsygh flowsheetNorthcrest Medical Center PA Work Phone: NOMS SWS DERMStart: 01-16-2024 End: 41-86-1764Qegxhp flowsheetNorthcrest Medical Center PA Work Phone: NOMS SWS DERMStart: 01-16-2024 End: 97-36-7175Smsixb outpatient visit [address] [place] [address] PA Work Phone: noMS SWS DERMComment on above:Other atopic dermatitis (Primary Dx)Start: 01-16-2024 End: 97-03-0867thklfzhmgjNDXKD NORTHEIMNot AvailableStart: 12-31-2023 End: 86-05-2200kjttjkdtjgETGGI [facility] Hospitaltart: 04-17-2023 End: 00-44-1379ntnwwkzqqaHX Velasquez [employer]unch Work Phone: [facility] Work Phone: Start: 04-17-2023 End: 04-63-1760Gzhzpzy encounter procedureMD Velasquez Bunch Work Phone: [facility] Tie-Xli-Qmdzcsfi Testing Work Phone: Start: 04-08-2023 End: 34-79-3772bgyjdsjeqtDP Velasquez M Hoy Work Phone: [facility] Work Phone: Start: 04-08-2023 End: 97-58-8504Badkcff encounter procedureMD Velasquez Hoy Work Phone: [facility] Work Phone: Start: 04-08-2023 End: 33-30-3964zyilpbezzxLU Velasquez M Hoy Work Phone: [facility] Work Phone: Start: 04-08-2023 End: 11-53-7180Wckvqeh encounter procedureMD Velaqsuez Hoy Work Phone: [facility] Start: 37-08-2969azuspydisjUB VELASQUEZ HOY .Facility:D4Sbpvm: 05-29-2022 End: 34-77-7850jqqcdxudrdGS VELASQUEZ HOY .Facility:H0Amwpf: 03-07-2022 End: 66-06-7770rtbcumjhhyNI VELASQUEZ HOY .Facility:A0Dmxsn: 02-06-2022 End: 78-47-0280hctltxhmrlCN VELASQUEZ HOY .Facility:T5Mnbgs: 15-45-1445yilaivtbcx DR VELASQUEZ HOY .Facility:Y9Vwdac: 10-09-2019 End: 19-95-6945Arkfsyamco and management of inpatientRANVIR S RATHOREMercy Scripps Memorial Hospitaltart: 10-09-2019 End: 09-80-9791Uhvgvdiryi and management of inpatientCourtronald Mercado Work Phone: stvz CAR 2Comment on above:Abdominal aortic aneurysm (AAA) without rupture (HCC) (Primary Dx); Acute low back pain, unspecified back pain laterality, unspecified whether sciatica present; Vertigo; Nausea and vomiting, intractability of vomiting not specified, unspecified vomiting type; Hypertensive urgencyStart: 06-27-2017 End: 76-09-2291Anczxxyndm and management of inpatientDOUGLAS M HOYMercy Premier Health [facility] Center Procedures DateProcedureProcedure DetailPerforming ClinicianStart: 53-66-2718Mzhcyq-up visitOMAR HORANIStart: 83-22-2802Xpnmsn-up visitOMAR HORANIStart: 03-26-2024 Follow-up visitOMAR HORANIStart: 76-72-9301Pirsnt-up visitOMAR HORANIStart: 94-27-4508Muqmmk-up visitOMAR HORANIStart: 60-46-0721Yjaobf-up visitOMAR MALINAANI Start: 18-36-5952Lsceu X-ray of right handMD Velasquez [employer]unch Work Phone: Start: 84-82-7563Cwguz count complete auto&auto difrntl wbcRANVIR RATHOREStart: 69-80-0088Ytwghdsdgkqpo metabolic panelRANVIR RATHOREStart: 65-43-7373Srqxjzm bacterial quanttative colony count urineRANVIR RATHOREStart: 66-45-2061Wattw dip stick/tablet reagent auto microscopyRANVIR RATHOREStart: 11-78-1181Qmmggnt blood reagent stripRANVIR RATHOREStart: 14-13-9082ZFGYDQWIT PATIENTRANVIR RATHOREStart: 06-60-6107Xkzza dip stick/tablet reagent auto microscopyJonathan H Demeter Work Phone: Start: 00-91-4371JE CONSULT TO HOME CARE NEEDSRANVIR RATHOREStart: 91-68-8571Cvqnwda blood reagent stripRanvir S Judie Work Phone: Start: 50-03-4433PJDYCSD SCANRANVIR RATHOREStart: 65-35-8275EM CONSULT TO UROLOGYRANVIR RATHOREStart: 99-72-2371Pqyl bld gluc mntr dev cleared fda spec home useRANVIR RATHOREStart: 30-88-1392Puntbru blood reagent stripRANVIR RATHOREStart: 79-92-1626NZWKPGRX OXYGEN THERAPY PROTOCOL GIOVANNA RATHOREStart: 10-16-2019 End: 03-18-0369Ndbyhiq blood reagent stripRanvir S Judie Work Phone: Start: 32-52-1659Cldbd count complete auto&auto difrntl wbcRANVIR RATHOREStart: 51-29-6509Cyrvgaunljvfr metabolic panelRANVIR RATHOREStart: 31-81-8217Qhho bld gluc mntr dev cleared fda spec home useRANVIR RATHOREStart: 81-48-4961ESRZQ METABOLIC PANEL W/ REFLEX TO MG FOR LOW K Muralikrishna Porandla Work Phone: Start: 35-47-2673Blppg count complete auto&auto difrntl wbcMuralikrishna Porandla Work Phone: Start: 92-09-0558VVNAKU AND OUTPUTRANVIR RATHOREStart: 42-49-5502Vwzz bld gluc mntr dev cleared fda spec home useRANVIR RATHOREStart: 76-12-8270Ylvjiim blood reagent stripRANVIR RATHOREStart: 15-59-2081Qfzz bld gluc mntr dev cleared fda spec home useRANVIR RATHOREStart: 45-18-8062Jluefhi blood reagent stripRanvir S Judie Work Phone: Start: 71-92-4305Nzykpfy blood reagent stripRANVIR RATHOREStart: 19-63-7468SPBADHGI CATHRANVIR RATHOREStart: 90-47-8416UVVYLFS NUTRITION SUPPLEMENTSRANVIR RATHOREStart: 64-35-0499Rul spinal canal lumbar w/o & w/contr matrlRANVIR RATHOREStart: 11-61-2222Dsqpack blood reagent stripRanvir S Judie Work Phone: Start: 19-88-2770Kqk spinal canal lumbar w/o & w/contr matrlMuralikrishna Porandla Work Phone: Start: 26-62-4521Faocdmk blood reagent stripRANVIR RATHOREStart: 69-78-1681Qzeqofb blood reagent stripRanvir S Judie Work Phone: Start: 45-99-9005Gbjdo count complete auto&auto difrntl wbcRANVIR RATHOREStart: 67-12-9295Mzdkxjwtzvqkl metabolic panelRANVIR RATHOREStart: 05-12-6384Bplc bld gluc mntr dev cleared fda spec home useRANVIR RATHOREStart: 90-35-3768BYRWKWTI CATHRANVIR RATHOREStart: 04-29-0274MLMSU METABOLIC PANEL W/ REFLEX TO MG FOR LOW KMuralikrishna Porandla Work Phone: Start: 92-40-4027Uncoz count complete auto&auto difrntl wbcMuralikrishna Porandla Work Phone: Start: 87-23-2596TT CONSULT TO IV TEAMRANVIR JUDIE Start: 84-80-7643SIKHSJKS OXYGEN THERAPY PROTOCOLRANVIR RATHOREStart: 10-15-2019 Glucose blood reagent stripRANVIR RATHOREStart: 87-09-3517Risqvrp blood reagent stripRanvir S Judei Work Phone: Start: 11-97-2706Tfgd bld gluc mntr dev cleared fda spec home useRANVIR RATHOREStart: 02-64-3616RLTOVJ AND OUTPUTRANVIR JUDIE Start: 75-87-3072Eklm bld gluc mntr dev cleared fda spec home useRANVIR JUDIE Start: 33-75-1716Zkfqafs blood reagent stripRANVIR RATHOREStart: 42-77-6568Jgut bld gluc mntr dev cleared fda spec home useRANVIR RATHOREStart: 10-14-2019 Glucose blood reagent stripRanvir S Judie Work Phone: Start: 76-14-7394JWLSIOQN CATHRANVIR RATHOREStart: 39-73-3758Vtalgrj blood reagent stripRanvir S Judie Work Phone: Start: 86-82-9491Mvtfpfi blood reagent stripRANVIR RATHOREStart: 28-31-8202Oisdbiv blood reagent stripRanvir S Judie Work Phone: Start: 68-54-2442Uieg bld gluc mntr dev cleared fda spec home useRANVIR RATHOREStart: 85-98-0768TMTDUOPV OXYGEN THERAPY PROTOCOL GIOVANNA RATHOREStart: 42-28-0099KQRZEAYC CATHRANVIR RATHOREStart: 10-14-2019 Antibody treponema pallidumRANVIR RATHOREStart: 56-04-0153Yvpgi count complete auto&auto difrntl wbcRANVIR RATHOREStart: 91-67-1073Ykjlwzjunpddb metabolic panelRANVIR RATHOREStart: 01-32-4492Nwlhgzb blood reagent stripRANVIR JUDIE Start: 52-08-5338Jvwq bld gluc mntr dev cleared fda spec home useRANVIR JUDIE Start: 45-54-9405YASRY METABOLIC PANEL W/ REFLEX TO MG FOR LOW KMuralikrishna Porandla Work Phone: Start: 89-69-9940Kvnza count complete auto&auto difrntl wbcMuralikrishna Porandla Work Phone: Start: 10-14-2019T. PALLIDUM ABMuralikrishna Porandla Work Phone: Start: 86-00-8215Bpvrark blood reagent stripRanvir S Judie Work Phone: Start: 22-88-4944UMNEXG AND OUTPUTRANVIR RATHOREStart: 11-92-3553Dtyv bld gluc mntr dev cleared fda spec home useRANVIR RATHOREStart: 86-83-0303LGXHRUFY CATHRANVIR RATHOREStart: 39-67-4334Ojgegue blood reagent stripRANVIR RATHOREStart: 39-70-8646Awuj bld gluc mntr dev cleared fda spec home useRANVIR RATHOREStart: 73-47-0301Lhdqqgr blood reagent stripRanvir S Judie Work Phone: Start: 40-44-2547Ziybjmo blood reagent stripRANVIR RATHOREStart: 88-22-0657Qrtrpsw blood reagent stripRanvir S Judie Work Phone: Start: 76-47-9726Gkbym of ammoniaRANVIR RATHOREStart: 60-87-0873Rcviy gases any combination ph pco2 po2 co2 vge8VINRGO RATHOREStart: 79-88-9897SL CONSULT TO IV TEAMRANVIR RATHOREStart: 34-88-3908Vypfdhuu mycoplsm GIOVANNA RATHOREStart: 25-99-0843Gryivtu blood reagent stripRanvir S Judie Work Phone: Start: 40-02-3568Rrdie of ammoniaDhrupal Mares Work Phone: Start: 57-99-6158Adfia gases any combination ph pco2 po2 co2 tmn6Gajqolwmldjf [employer] Work Phone: Start: 84-58-9915Fjpmoejx mycoplsmLuis E Kendrick Work Phone: Start: 14-20-3712Yrkk bld gluc mntr dev cleared fda spec home useRANVIR RATHOREStart: 30-88-4747AHFTVFMV OXYGEN THERAPY PROTOCOL GIOVANNA RATHOREStart: 94-72-6487Uohzdxs blood reagent stripRANVIR RATHOREStart: 31-86-1420Bkqph of magnesiumRANVIR RATHOREStart: 42-46-4012Jcrfb count complete auto&auto difrntl wbcRANVIR RATHOREStart: 21-51-4666Myvgrjlooikfo metabolic panelRANVIR RATHOREStart: 68-33-0427Jlwcjpq blood reagent stripRanvir S Judie Work Phone: Start: 45-02-2618Cjfw bld gluc mntr dev cleared fda spec home useRANVIR RATHOREStart: 49-80-1025Pxtat of magnesiumMuralikrishna Porandla Work Phone: Start: 59-64-9419FOEZV METABOLIC PANEL W/ REFLEX TO MG FOR LOW KMuralikrishna Porandla Work Phone: Start: 64-57-7674Mlulr count complete auto&auto difrntl wbcMuralikrishna Porandla Work Phone: Start: 58-27-9658PFIGXG AND OUTPUTRANVIR RATHOREStart: 06-15-3549Wtoi bld gluc mntr dev cleared fda spec home useRANVIR RATHOREStart: 74-82-4137Euftt dip stick/tablet reagent auto microscopyRANVIR RATHOREStart: 13-44-4761Xxfypvg blood reagent stripRANVIR RATHOREStart: 25-82-8038Dlvz bld gluc mntr dev cleared fda spec home useRANVIR RATHOREStart: 80-58-4790Oyjtg dip stick/tablet reagent auto microscopyMuralikrishna Yonathanandla Work Phone: Start: 13-06-4427Xpdvqxb blood reagent stripRanvir S Judie Work Phone: Start: 88-79-5888Owxxnmt blood reagent stripRANVIR RATHOREStart: 58-98-2816XBSS GENERALRANVIR RATHOREStart: 73-95-8753Ltgpmeo blood reagent stripRanvir S Judie Work Phone: Start: 68-56-7529PLDETMG, BLOOD 1RANVIR RATHOREStart: 43-44-6120Lbquuee blood reagent stripRANVIR RATHOREStart: 30-00-8144Dqezpds blood reagent stripRanvir S Judie Work Phone: Start: 86-00-2403Wdk-scan artl braydon abdl/pel/scrot&/rpr orgn comRANVIR RATHOREStart: 80-22-2300Smvx bld gluc mntr dev cleared fda spec home useRANVIR RATHOREStart: 84-71-4213Zjqxhey blood reagent stripRANVIR JUDIE Start: 28-86-6316CZATYFEK OXYGEN THERAPY PROTOCOLRANVIR RATHOREStart: 10-12-2019 Dup-scan artl braydon abdl/pel/scrot&/rpr orgn comMuralikrishna Porandla Work Phone: Start: 75-62-5781Uiljo of aldosteroneRANVIR JUDIE Start: 02-44-2341Dwujj of magnesiumRANVIR RATHOREStart: 22-64-1494Xuumw of renin GIOVANNA RATHOREStart: 02-33-0890Mrbum count complete auto&auto difrntl wbcRANVIR RATHOREStart: 41-95-1396Qetootkhdlled metabolic panelRANVIR RATHOREStart: 65-93-4274Nqdfkjp blood reagent stripRanvir S Judie Work Phone: Start: 19-41-9608Ibwsy of aldosteroneMuralikrishna Porandla Work Phone: Start: 25-31-9615Hnxho of magnesiumMuralikrishna Porandla Work Phone: Start: 79-20-9223Rbvzu of reninMuralikrishna Porandla Work Phone: Start: 22-71-3102BWIMW METABOLIC PANEL W/ REFLEX TO MG FOR LOW KMuralikrishna Porandla Work Phone: Start: 85-23-5686Nveyf count complete auto&auto difrntl wbcMuralikrishna Porandla Work Phone: Start: 00-70-3495Ciyb bld gluc mntr dev cleared fda spec home useRANVIR RATHOREStart: 66-69-6946UDKJEF AND OUTPUTRANVIR JUDIE Start: 36-65-6500Rfjz bld gluc mntr dev cleared fda spec home useRANVIR JUDIE Start: 60-56-9589Hqtcbjytsz exam chest single viewRANVIR RATHOREStart: 00-01-5724BQ CONSULT TO INFECTIOUS DISEASESRANVIR RATHOREStart: 61-11-4722Qjrcj source albumin quantitative each specimenRANVIR RATHOREStart: 10-11-2019 Radiologic exam chest single viewKarim Damien Work Phone: Start: 14-80-0038Phiumlr blood reagent stripRANVIR RATHOREStart: 85-35-8859Efgs bld gluc mntr dev cleared fda spec home useRANVIR RATHOREStart: 62-44-1492BnjssbmxufbqkOSSMSF RATHOREStart: 83-20-1652Fxubwin blood reagent stripRanvir S Judie Work Phone: Start: 81-87-9654Krdbcoj blood reagent stripRanvir S Judie Work Phone: Start: 23-80-2984XupemulcusgbzXfbqsamnlesfz Porandla Work Phone: Start: 04-82-4231Qwz brain brain stem w/o w/contrast materialRANVIR RATHOREStart: 73-43-9917Dlnspej blood reagent stripRANVIR JUDIE Start: 82-15-6805Ext brain brain stem w/o w/contrast Amelia Morelos Work Phone: Start: 28-61-3833Yoszaam blood reagent stripRanvir S Judie Work Phone: Start: 86-99-1729Eimo bld gluc mntr dev cleared fda spec home useRANVIR RATHOREStart: 15-67-7975Umdynrb blood reagent stripRANVIR RATHOREStart: 74-13-0865FVYTROWX OXYGEN THERAPY PROTOCOLRANVIR RATHOREStart: 61-51-5706Tvdovov blood reagent stripRanvir S Judie Work Phone: Start: 15-80-9229Fpwzp count complete auto&auto difrntl wbcRANVIR RATHOREStart: 62-19-2956Zhagnccubzeon metabolic panelRANVIR RATHOREStart: 78-40-5872Feap bld gluc mntr dev cleared fda spec home useRANVIR RATHOREStart: 02-61-4732TPVUH METABOLIC PANEL W/ REFLEX TO MG FOR LOW K Muralichaohiginio Eduardojovita Work Phone: Start: 23-87-4088Nwtqa count complete auto&auto difrntl wbcMuralikrishnsrinath Morris Work Phone: Start: 71-32-2698EGZMDG AND OUTPUTRANVIR RATHOREStart: 27-08-6881Qwecznt blood reagent stripRANVIR RATHOREStart: 20-16-3479Ucdg bld gluc mntr dev cleared fda spec home useRANVIR RATHOREStart: 19-27-1599Axydxdu blood reagent stripRanvir S Judie Work Phone: Start: 18-02-6281Cyeow sacrum & coccyx minimum 2 views GIOVANNA RATHOREStart: 06-76-6982Mpdmq spine lumbosacral 2/3 viewsRANVIR JUDIE Start: 01-79-3653Oekejih blood reagent stripRANVIR RATHOREStart: 85-86-3828Dvil bld gluc mntr dev cleared fda spec home useRANVIR RATHOREStart: 58-52-7215Hfqaz sacrum & coccyx minimum 2 viewsMatt Mares Work Phone: Start: 09-24-2406Uykdi spine lumbosacral 2/3 views Matt Mares Work Phone: Start: 78-72-5772Uocqgqq blood reagent stripRanvir S Judie Work Phone: Start: 20-25-8504Jaawc of lactateRANVIR RATHOREStart: 75-38-1317T-reactive proteinRANVIR RATHOREStart: 14-97-6487Xlofcihcyzzgz (pct) GIOVANNA RATHOREStart: 24-45-1278Viyisgcszvgwr rate rbc automatedRANVIR JUDIE Start: 06-73-7086Nw head/brain w/o contrast materialRANVIR RATHOREStart: 84-65-9324Rv angiography head w/contrast/noncontrastRANVIR RATHOREStart: 42-82-2950Pgear of lactateLuis Manish Erazo Work Phone: Start: 55-21-4370B-reactive proteinLuis Manish Erazo Work Phone: Start: 97-53-6248Xcsssjbkoqxgw (pct)Alfonso Manish Erazo Work Phone: Start: 48-14-9003Jztrpoucxxhel rate rbc automatedLuis Manish Erazo Work Phone: Start: 19-79-3568Pi head/brain w/o contrast material Jimmy Chirri Work Phone: Start: 36-21-0065Xe angiography neck w/contrast/noncontrastLuis Manish Erazo Work Phone: Start: 26-22-4081Rohulvr blood reagent stripRANVIR RATHOREStart: 82-72-3539CR CONSULT TO NEUROLOGYRANVIR RATHOREStart: 10-10-2019 Glucose blood reagent stripRanvir S Judie Work Phone: Start: 02-56-6289ZTHOCYYGIPDGX NURSING CARE ORDER (SPECIFY)GIOVANNA RATHOREStart: 59-94-3365Tpzx bld gluc mntr dev cleared fda spec home useRANVIR RATHOREStart: 28-86-4549CNQGQZCI OXYGEN THERAPY PROTOCOLRANVIR RATHOREStart: 61-00-6705Ibfsg of magnesiumRANVIR RATHOREStart: 92-28-0621Szwgj of thyroid stimulating hormone tshRANVIR RATHOREStart: 82-14-1255Egivc count complete auto&auto difrntl wbcRANVIR RATHOREStart: 98-08-2029Tudtaufdynpao metabolic panelRANVIR RATHOREStart: 48-19-1575Ygunn of magnesiumMuralikrishna Porandla Work Phone: Start: 84-70-2708Ffcuo of thyroid stimulating hormone tshMuralikrishna Porandla Work Phone: Start: 28-19-9830ZOERM METABOLIC PANEL W/ REFLEX TO MG FOR LOW KMuralikrishna Porandla Work Phone: Start: 87-14-2884Xuaer count complete auto&auto difrntl wbcMuralikrishna Porandla Work Phone: Start: 68-30-9541Mdnq bld gluc mntr dev cleared fda spec home useRANVIR RATHOREStart: 29-37-9258BQDFG WEIGHTSRANVIR RATHOREStart: 78-33-6280DLDXPL AND OUTPUTRANVIR RATHOREStart: 34-97-5213Ahch bld gluc mntr dev cleared fda spec home useRANVIR RATHOREStart: 39-67-4257Diimbotltk exam abdomen 1 viewRANVIR RATHOREStart: 55-07-8462Xmun bld gluc mntr dev cleared fda spec home useRANVIR RATHOREStart: 50-23-4961Mzcpylz blood reagent stripRANVIR JUDIE Start: 27-38-0479Zohnnwjlzz exam abdomen 1 viewMuralikrishna Porandla Work Phone: Start: 51-77-0269Swnbofq blood reagent stripRanvir S Judie Work Phone: Start: 52-13-7477IIQOD SIGNSRANVIR RATHOREStart: 10-37-5994Kn abdominal real time w/image limitedRANVIR RATHOREStart: 10-09-2019 MISCELLANEOUS NURSING CARE ORDER (SPECIFY)GIOVANNA RATHOREStart: 61-01-0093Pbml bld gluc mntr dev cleared fda spec home useRANVIR RATHOREStart: 86-09-8002Ga abdominal real time w/image limitedDharmachacorta Mares Work Phone: Start: 92-55-0155YEERIGR HEELS OFF OF BEDRANVIR RATHOREStart: 71-40-3898APJA OF BED 60 DEGREES OR LESSRANVIR RATHOREStart: 24-83-2618CXCIJUU COMMUNICATIONRANVIR RATHOREStart: 76-17-5486XFTU PATIENTRANVIR RATHOREStart: 97-46-7555EIICCS AND OUTPUTRANVIR RATHOREStart: 35-83-7781HF EVAL AND TREATRANVIR RATHOREStart: 71-31-4901QB EVAL AND TREATRANVIR RATHOREStart: 51-19-0762DRFF CODERANVIR RATHOREStart: 02-28-6675NXGLRSKU OXYGEN THERAPY PROTOCOLRANVIR RATHOREStart: 56-77-9374DLMMXQ PHYSICIAN (SPECIFY)GIOVANNA JUDIE Start: 11-50-6736GWBBTX FOR NO MECHANICAL VTE PROPHYLAXISRANVIR RATHOREStart: 51-59-4896ZVVMZ SIGNSRANVIR RATHOREStart: 30-85-3042Zenqq dip stick/tablet reagent auto microscopyRANVIR RATHOREStart: 36-96-2511Ibrpi dip stick/tablet rgnt auto w/o microscopyRANVIR RATHOREStart: 53-23-6165Mdrms dip stick/tablet reagent auto microscopyMuralikrishna Porandla Work Phone: Start: 41-00-3529Xdczs dip stick/tablet rgnt auto w/o microscopyMuralikrishna Porandla Work Phone: Start: 13-48-3520ACRAMJN STATUS (FROM ED OR OR/PROCEDURAL)GIOVANNA RATHOREStart: 50-05-4891WB CONSULT TO INTERNAL MEDICINE GIOVANNA RATHOREStart: 30-75-5718Kn thorax w/contrast materialRANVIR RATHOREStart: 40-65-2060Casey of troponin quantitativeRANVIR RATHOREStart: 02-12-6847Deyxkr bodies serum quantitativeRANVIR RATHOREStart: 30-30-1863HJJXT-19RANVIR JUDIE Start: 28-81-6582Xel routine ecg w/least 12 lds w/i&rRANVIR RATHOREStart: 22-57-2382WTQ REPORTRANVIR RATHOREStart: 33-25-8491Ljuim of lipaseRANVIR JUDIE Start: 00-62-4764Zdzms count complete auto&auto difrntl wbcRANVIR RATHOREStart: 40-84-3503Oomfuoxpbzfhg metabolic panelRANVIR RATHOREStart: 87-09-3580Iyljqoopvc glycosylated j3zMOSWUY RATHOREStart: 10-71-5117Lytwv panelRANVIR RATHOREStart: 41-19-9275Qs thorax w/contrast materialTucker J [employer] Work Phone: Start: 52-54-1332Ucvbx of troponin quantitativeTucker J [employer] Work Phone: Start: 71-79-2485Dxhzaq bodies serum quantitative [employer] Work Phone: Start: 33-38-1085PY CONSULT TO VASCULAR SURGERYRANVIR RATHOREStart: 26-86-7892KHHQU-Julie Chandler Work Phone: Start: 76-11-8218Onr routine ecg w/least 12 lds trcg only w/o i&rTucker J Network Intelligence Work Phone: Start: 02-63-3326PMY REPORTHpf ScanningStart: 97-33-9643Octjy of lipaseTucker J Network Intelligence Work Phone: Start: 54-40-4013Gjmpb of troponin quantitativeTucker J [employer] Work Phone: Start: 49-13-8116Nvwtv count complete auto&auto difrntl wbcTucker J Network Intelligence Work Phone: Start: 07-44-1714Zbliemophviqi metabolic panelTucker J Network Intelligence Work Phone: Start: 85-35-3533Ptihkwhmxx glycosylated g5kPjkdnk J Melton Work Phone: Start: 18-80-9296Bgzud panelTgio Melton Work Phone: Start: 81-02-5426AQCFYPYRV PATIENTDOUGLAS HOYStart: 62-18-3901KRYMMDFP OXYGEN THERAPY PROTOCOLDOUGLAS HOYStart: 12-73-5745ELCXD METABOLIC PANEL W/ REFLEX TO MG FOR LOW KDOUGLAS HOYStart: 27-27-9384YAH WITH AUTO DIFFERENTIALDOUGLAS HOYStart: 42-14-9449LEFUWPFZNDYAOUH HOYStart: 43-84-2176QDQZZIOCZNIASPH HOYStart: 23-53-7781QSVTZ WEIGHTSDOUGLAS HOYStart: 98-02-3856HTFKJR AND OUTPUTDOUGLAS HOYStart: 26-31-9142LWQMOSGXCQQOKYXUXL HOY Start: 39-76-2189TFBYASWV TOTALDOUGLAS HOYStart: 94-64-2919BBITRRYDMZYC HOY Start: 80-67-3482IUPFGMOSTPAEHSS HOYStart: 56-38-0122KJKLTLZBVCJGL URINEDOUGLAS HOYStart: 75-73-2655GRVDBNJL PATIENTDOUGLAS HOYStart: 94-24-3968TNPHI METABOLIC PANEL W/ REFLEX TO MG FOR LOW KDOUGLAS HOYStart: 47-08-2275SID WITH AUTO DIFFERENTIALDOUGLAS HOYStart: 90-06-5140Buwi tthrc r-t 2d w/wom-mode compl spec&colr dDOUGLAS HOYStart: 59-89-6981PTUC CODEDOUGLAS HOYStart: 06-28-2017 INITIATE OXYGEN THERAPY PROTOCOLDOUGLAS HOYStart: 58-31-9977ZQYFUG AND OUTPUT VELASQUEZ HOYStart: 69-95-3394GF CONSULT TO SOCIAL WORKDOUGLAS HOYStart: 72-47-3693XM EVAL AND TREATDOUGLAS HOYStart: 46-19-4021QT EVAL AND TREATDOUGLAS HOYStart: 53-02-9329QEOIEJ FOR NO MECHANICAL VTE PROPHYLAXISDOUGLAS HOYStart: 09-11-3945YYDVRVD CESSATION EDUCATIONDOUGLAS HOYStart: 18-21-9848TTTCQ SIGNS VELASQUEZ HOYStart: 52-25-8081KOTT CARDIACDOUGLAS HOYStart: 03-38-9477BADKVC PHYSICIAN (SPECIFY)VELASQUEZ HOYStart: 73-13-1312RONPQ INTERMITTENT PNEUMATIC COMPRESSION DEVICEDOUGLAS HOYStart: 01-78-4570YQLTTY FOR NO CHEMICAL VTE PROPHYLAXISDOUGLAS HOYStart: 91-72-1697SKEWOFDZY MONITORINGDOUGLAS HOYStart: 55-71-0823ALGCE SIGNSDOUGLAS HOYStart: 52-04-8997UZQVHAT STATUS (FROM ED OR OR/PROCEDURAL)VELASQUEZ HOYStart: 97-75-3156SXCFIJMEJWRMMHU HOYStart: 48-42-7687GV CONSULT TO INTERNAL MEDICINEDOUGAPOLLO HOYStart: 14-18-2681RLZ 12-LEADDOUGLAS HOY Start: 46-62-8043WVCTO METABOLIC PANELDOUGLAS HOYStart: 42-22-3229HTF WITH AUTO DIFFERENTIALDOUGLAS HOYStart: 21-74-6157BKMOFHTBJVFXXSV HOYStart: 20-00-5615EMB WITH REFLEXDOUGLAS HOYStart: 75-35-1304Dibuidgyaj exam chest 2 viewsDOUGLAS HOY Start: 73-01-1100CHCVR RT REFLEX TO CULTUREDOUGLAS HOYStart: 34-25-6300FKTEJK PERIPHERAL IVDOUGLAS HOY Plan of Treatment DateCare ActivityDetailAuthorStart: 52-29-3027EwlgmKettering Health Prebletart: 64-87-1432Hwtojzje identified in Urine by CultureUrine [facility] Hospitaltart: 08-24-2024 End: 46-37-2991Lbwpmdo encounter vcmydslxn78/01/2025 4:00 PM EDT Office Visit [facility] [address] [place] [address] Curry eRd MD [address] [place] [address] [facility] DERMStart: 02-06-2024 End: 33-99-8979Yhszajk encounter mqorpettu75/13/2024 1:10 PM EST Office Visit [facility] [address] [place] [id number] Iva Ta PA [address] [place] [address] NOMDavid VARGAS DERMStart: 01-16-2024 End: 70-17-1435Pmjdinu encounter potgbfejf86/22/2024 11:50 AM EST Office Visit [facility] [address] [place] [address] Iva Ta PA [address] [place] [address] ArrivedNOMS SAM DERMComment on above:ArrivedStart: 81-62-8878Pzqvcvpmz vaccinationInfluenza Vaccine (#1)[facility] HealthcareStart: 70-93-2177Buyfq X-ray of right handXR hand RT min 3V*[facility]ertart: 12-85-9923KD Hand - right GE 3 ViewsMetroHealth [facility] Heights Medical Centertart: 10-12-1812Onttkpazlwxp Vaccine: 65+ Years (2 of 2 - PCV) Pneumococcal Vaccine: 65+ Years (2 of 2 - PCV)[facility] HealthcareStart: 10-14-2020 Creatinine measurementCreatinine monitoringSelect Medical [facility]: 10-14-2020 Potassium monitoringPotassium monitoringSelect Medical [facility]: 10-26-2019 Influenza vaccinationFlu vaccine (#1)[facility]: 50-14-0032Mskyvv Wellness Visit (AWV)Annual Wellness Visit (AWV)[facility]: 96-46-2320Eecrloiowydu 65+ years Vaccine (1 of 1 - PPSV23)Pneumococcal 65+ years Vaccine (1 of 1 - PPSV23)[facility]: 38-53-4969Oxkoynpzw for osteoporosisDEXA (modify frequency per FRAX score)[facility]: 39-31-8407Znaqunct Vaccine (1 of 2)Shingles Vaccine (1 of 2)[place], [place] Start: 01-17-7599KQyZ/Tdap/Td vaccine (1 - Tdap)DTaP/Tdap/Td vaccine (1 - Tdap) [place], [place] End: 78-17-5249YXRALMJ, CSFALBUMIN, CSF Lab Routine One Time for 1 Occurrences starting 10/11/2019 until 10/11/2019[facility], CLARAComment on above:One Time for 1 Occurrences starting 10/11/2019 until 10/11/2019Basic Metabolic Panel w/ Reflex to MGBasic Metabolic Panel w/ Reflex to MG Lab Routine Daily until discontinued starting 10/10/2019, 7 [facility], CLARAComment on above:Daily until discontinued starting 10/10/2019, 7 completedCBC auto differentialCBC auto differential Lab Routine Daily until discontinued starting 10/10/2019, 7 [facility], [place]Comment on above:Daily until discontinued starting 10/10/2019, 7 completedCulture, Blood [place] End: 36-42-0601Joyufgt, UrineCulture, Urine Microbiology Routine One Time for 1 Occurrences starting 10/16/2019 until 10/16/2019[facility], CLARAComment on above:One Time for 1 Occurrences starting 10/16/2019 until 10/16/2019Culture, UrineCulture, Urine Microbiology [employer] Label Print 10/16/2019 1:[address] [facility], KYNebulizer therapyHHN Treatment Respiratory Care Routine As Needed until discontinued starting 10/11/2019[facility], CLARAComment on above:As Needed until discontinued starting 10/11/2019Oxygen therapy [Minimum Data Set]Initiate Oxygen Therapy Protocol Respiratory Care Routine Daily until discontinued starting 10/09/2019[facility], CLARAComment on above:Daily until discontinued starting 10/09/2019POCT GlucoseMount St. [facility], CLARAComment on above:As Needed until discontinued starting 10/09/20194X Daily (AC & HS) until discontinued starting 10/09/2019 Immunizations Immunization DateImmunizationNotesCare ZadqeioaOnqgsiyv90-26-8289HJAFG-57 nDKL- 2506 ([facility])MD Velasquez Bunch Work Phone: [facility]02-26-2021COVID-19 mRNA-127 (Moderna)MD Velasquez Bunch Work Phone: [facility]01-29-2021COVID-19 mRNA127 (Moderna)MD Velasquez Bunch Work Phone: [facility]10-05-2020influenza virus vaccine, unspecified formulationOhiohealth Arthur G.H. Bing[facility], Cancer Centere [facility] KIMBERLY Work Phone: [facility] Healthcare Payers DatePayer CategoryPayerPolicy [id number] (Managed Care) [id number] [id number] [id number] [id number] 1960Self-pay [id number] [id number] 2.0.1.689113.3.57[id number] 2.0.1.981564.3.57[id number] 2.16840.1.820399.3.57[id number] 2.16840.1.421693.3.57[id number] 2.16840.1.146157.3.57[id number] 2.16840.1.974061.3.57[id number] 2.16840.1.56[id number] 2.16.840.1.396843.3.579.2.531 [id number] 2.16.840.1.307932.3.579.2.531 Social History DateTypeDetailFacilityStart: 40-70-3307Tekscxu smoking status NHISNever smoker [place], [place] 10[place]09[place]2019 End: 28-16-4033Azselqi use and exposureNever usedMill[place], [place]Start: 59-02-2408Roazdlt intakeCurrent non-drinker of alcohol (finding)[facility]: 90-06-9210Rou Assigned At BirthNot on fileMill[place], [place] Exposure to SARS-CoV-2 (event)Not sureSelect Medical [facility]: 77-72-0257Zmo Assigned At BirthFeCleveland Clinictart: 04-17-2023 End: 98-15-0223Uslhjrz smoking status NHISEx-smoker (finding)[facility] HospitalHistory of tobacco useCurrent smokerNOMS HealthcareHistory of tobacco useCigarette SmokerNOMS HealthcareStart: 04-17-2023 End: 14-99-9573Yenuvla of Social functionNOMS HealthcareStart: 04-17-2023 End: 99-34-6155Wnbixro use panelNORI HealthcareStart: 37-32-4435Tvjrkbk Comment Last smoked: 10-15 yearsNOMS HealthcareSexFemale (finding)[facility] Clinical Notes 05-18-2020 to 12-22-2024 Note Date & TfypFncoOnelibue06-97-5127 NoteUnC[facility] 08-30-2024 NoteRECEIVED REFERRAL FOR PATIENT FOR GALLBLADDER COLIC, CALLED PATIENT WHO STATED SHE IS GOING TO TALK TO PCP AND WOULD LIKE TO HAVE THIS DONE CLOSER TO HOME. [facility]07-04-2025 NoteUnCleveland Clinic [facility]inte [facility]07-04-2025 NoteUnC[facility] Clinic [facility]07-04-2025 Note [facility]06-25-2025 NoteSpoke to patient regarding vascular procedure- Patient is scheduled for 08/26/24 @ 1pm with an arrival time of 11am- preop labs entered. Patient educated on medication holds and lab work needing completed prior to OR. Patient verbalized understanding.[facility]06-12-2025 NoteUnC[facility]06-11-2025 NoteUnC[facility] 08-04-2024 NoteUnC[facility]04-25-2025 NoteUnC[facility]04-14-2025 NoteUnC[facility] 05-20-2024 History of Present illness Narrative* [...] be refrigerated. Medication will be sent to [facility], contact information provided to patient, instructed [...] 3 month follow up documented in this encounterNorth Kansas City HospitalLtvvbnqybw10-82-2331 NotePatient called creative services writer direct line ([phone]), however calling to reach [facility] Nephrology. Property Worker provided patient with phone number to reach Nephrology ([phone]).[facility]03-18-2025 NoteUnC[facility]02-07-2025 NoteUnC[facility] 03-26-2024 [facility]01-14-20[facility]12-23-2024 NoteUnC[facility] 02-12-2024 NoteUnC[facility]12-19-2024 NoteP[facility]12-[facility]-2024 NoteOccupational Therapy Name: Shayy Maynard Date of : 1945 Today's Date: 02/12/24 Pt is unable to be seen for therapy at this time secondary to Discharging !@ 1030 Check No Charge Time attempted: 0957UnC[facility] Clinic [facility]12-18-2024 NoteUnC[facility]12-18-2024 [facility] 02-11-2024 NoteUnC[facility]12-18-2024 NoteUnC[facility]12-17-2024 NoteUnC[facility] 02-10-2024 NoteUnC[facility]12-17-2024 NoteUnC[facility]12-17-2024 NoteUnC[facility] 02-10-2024 NoteUnC[facility]12-17-2024 NoteUnC[facility]12-17-2024 NoteUnC[facility] 02-10-2024 NoteUnC[facility]12-16-2024 NoteUnC[facility]12-16-20[facility] 02-09-2024 NoteUnC[facility]12-16-2024 NoteUnC[facility]12-16-2024 NoteUnC[facility] 02-08-2024 NoteUnC[facility]12-15-2024 NoteUnC[facility]12-15-2024 [facility] 02-08-2024 NoteP[facility]12-15-2024 NoteP[facility]12-14-2024 [facility] 02-07-2024 [facility]12-14-2024 NoteUnC[facility]12-13-2024 NoteUnC[facility] 02-06-2024 NoteUnC[facility]12-13-2024 NoteUnC[facility]12-13-2024 NoteUnC[facility] 02-06-2024 NoteUnC[facility]12-13-2024 NoteUnC[facility]12-12-2024 NoteUnC[facility] 02-05-2024 NoteUnC[facility]12-12-2024 NoteUnC[facility]12-12-2024 [facility] 02-05-2024 NoteP[facility]12-11-2024 NoteP[facility]12-11-2024 [facility] 02-04-2024 NoteBrief follow up with RN. No family at bedside. Patient is sleeping. Patient is scheduled for angiogram today. Once procedure/test completed and patient medically cleared therapy will return for eval and recommendations. SW following.[facility]12-11-2024 NoteP[facility]12-11-2024 NoteP[facility]12-11-2024 Note [facility]12-11-2024 NoteP[facility]12-10-2024 NoteP[facility]12-10-2024 Note [facility]12-10-2024 [facility]12-10-2024 NoteOccupational Therapy Name: Shayy Maynard Date of : 1945 Today's Date: 02/03/24 Pt is unable to be seen for therapy at this time secondary to Medically unstable today per nsg . Check No Charge Time attempted: 1113UnC[facility] Clinic [facility]12-10-2024 NoteP[facility]12-10-2024 [facility] 02-03-2024 NoteP[facility]12-10-2024 NoteP[facility]12-09-2024 NoteCase was discussed with the KEN on 02/02/2024. I agree with the history, physical, assessment, and plan of care. I discussed the findings and therapeutic plan. I agree with the documentation, except for any updates below. Daniela Van MDPike Community Hospital12-09-2024 NoteP[facility]12-07-2024 [facility] 01-31-2024 NoteP[facility]12-07-2024 NoteP[facility]12-06-2024 [facility] 01-30-2024 NoteUnC[facility]12-06-2024 NoteUnC[facility]12-06-2024 [facility] 01-30-2024 NoteP[facility]12-06-2024 NoteP[facility]12-05-2024 [facility] 01-29-2024 NoteUnC[facility]12-05-2024 NoteUnC[facility]12-05-2024 [facility] 01-29-2024 NoteP[facility]12-04-2024 Jtta9900: PEDAL PULSES: PRE PROCEDURE RIGHT: PT/DOPPLER; DP/DOPPLER LEFT: PT/DOPPLER; DP/DOPPLERPike Community Hospital12-04-2024 Note 1701: FAMILY UPDATED ON PROGRESS OF PROCEDUREPike Community Hospital 01-28-2024 NoteP[facility]12-04-2024 NoteP[facility]12-04-2024 NotePeripheral IV Date/Time: 01/28/2024 4:39 PM Inserted by: Rick Brown MD Placement Needle size: 14 G Laterality: right Location: hand Local anesthetic: none Site prep: alcohol Technique: anatomical landmarks Attempts: 2[facility]12-04-2024 NoteP[facility]12-04-2024 NoteP[facility] 01-28-2024 NoteP[facility]12-04-2024 NotePhysical Therapy Planned endovascular AAA repair today per RN. Will defer evaluation at this time and follow up post-operatively as appropriate. Peter Cartagena PT, DPTUnCleveland Clinic South Pointe Hospital12-04-2024 Note Occupational Therapy Name: Shayy Maynard Date of : 1945 Today's Date: 01/28/24 Pt is unable to be seen for therapy at this time secondary to planned AAA sx today/nsg request to hold . Check No Charge Time attempted: 730UnC[facility] Clinic [facility]12-03-2024 NoteCase was discussed with the KEN on 01/27/2024. I agree with the history, physical, assessment, and plan of care. I discussed the findings and therapeutic plan. I agree with the documentation, except for any updates below. Scarlett Sharpe MDUnC[facility] Clinic [facility]12-03-2024 NoteUnC[facility]12-03-2024 NoteUnC[facility] 01-16-2024 History of Present illness Narrative* [...] Next Visit: 4-6 weeks documented in this encounterNorth Kansas City HospitalNoqwctpffi26-15-0596 [facility]04-22-2021 Note [id number]#1.00CD:127[facility] 06-15-2020 NoteCystoscopy with Urethral Dilation ? [...] you have a fever over 100 degreesOhiohealth [facility]03-25-2021 [id number]#1.00CD:127[facility]03-25-2021 NoteCystoscopy with Urethral Dilation ? Voiding [...] if you have a fever over 100 degreesGood Hope Hospitaler [facility] HospitalEvaluation note* Diagnosis Onset Date Resolution Status Trigger finger, right middle finger acuteTrigger finger, right ring fingeracute [facility] Work Phone: Evaluation note* Diagnosis Other atopic dermatitis- Primary documented in this encounter [facility] HealthcareEvaluation note* Diagnosis Other atopic dermatitis- Primary High risk medication use documented in this encounter [facility] HealthcareEvaluation noteNo assessment information availableMer[facility] Work Phone: Reason for referral (narrative)No reason for referral information availableMercy Health Kings Mills Hospital Work Phone: Summary Purpose Family History No Family History Records Found Relationship Condition Age at Onset Recorded Date/T janki father Malignant neoplasm of lung Unknown Not SpecifiedMyocardial infarctionUnknown Relationship Condition Age at Onset Recorded Date/T janki father Malignant neoplasm of lung Unknown motherMyocardial infarctionUnknown Advance Directives No Advanced Directives Records [...] Contact Information Primary Emergency Contact: Deep Maynard [facility] Relation: Spouse Past Surgical History: [...] Assisted Dressing Assisted Toileting Assisted Feeding Assisted Cuff Turner Independent Med Delivery whole Wound Care Documentation [...] Readmission: 12 Discharging to Facility/ Agency Name: [facility] Address: Phone: Fax: Dialysis Facility (if applicable) Name: Address: Dialysis Schedule: Phone: Fax: Dietitian Teacher/Athletic Gear Custodian signature: EDT ICIAN SECTION Prognosis: Fair Condition [...] size monitoring with PCP F/u urologist at [place] in 1 week for lowe and void trial Take docusate 100 mg daily and miralax 17 g daily. documented in this encounter History of Present Illness * Tami Ni RN - 10/16/2019 5:51 PM EDT Property Worker discharged patient @ 1745 by wheelchair off unit with . Property Worker went over all discharge paperwork and [...] who was admitted as a transfer from [facility] 10/09/2019 where she presented with gradually [...] to ensure the accuracy of this automated chipper machine operator, some errors in chipper machine operator may have occurred. * Bruce Pelletier MD - 10/16/2019 11:07 AM EDT [facility] Internal Medicine Teaching Residency Program Inpatient Daily Progress Note Patient: Shayy Maynard Date of : 1945 Acct: [id number] Room: Admit date: 10/09/2019 Today's date: 10/16/19 [...] of COPD, primary hypertension was transferred from [facility] for management of infrarenal abdominal aortic aneurysm and for vascular consultation. States she started having lower back pain since . Describes the pain as constant, sharp, 10out of 10 in intensity associated with nausea. Patient went to the emergency department at [facility] to have hypertensive emergency with systolics above 200 and d-dimer was elevated. CT abdomen was done which showed 3.5 infrarenal aortic aneurysm, started on Cardene drip and pain medications we re given. Patient was transferred to [facility] found to be hypoxic in upper [...] Q4H PRN hydrALAZINE, 10 mg, Q6H PRN odgkvrbqul-meqcpmxcqdxob-jpstmtqd, 1 tablet, Q4H PRN sodium chloride flush, [...] year, recommend vascular consultation. References: J Am Lairssa Radiol 2013; 10(10):789-794; J Vasc Surg. 2018; [...] Dwayne Hanson MD Internal Medicine Resident, PGY-1 [facility]; [place], [place] 10/16/2019, 11:07 AM I have discussed [...] 9:31 AM EDT [facility] - Progress Note Today's Date and Time: [...] culture. Medical Decision Making/Summary/Discussion:10/16/2019 Infection Control Recommendations [place] Precautions Antimicrobial Stewardship Recommendations Discontinuation of therapy [...] of . INITIAL HISTORY: Patient transferred from [facility] on 10-09-19 because of low back pain and findings of an infrarenal abdominal aortic aneurysm. Developed onset of back pain on 10-07-19, associated with nausea. She was evaluated at [place] [facility] and found to have a hypertensive emergency with systolic pressures over [address] showed a 3.5 cm infrarenal aortic aneurysm. Her BP was controlled with Cardene drip and the patient was transferred to [facility]. [place] [facility] patient had signs of hypoxia, [...] file Gets together: Not on file Attends pentecostal service: Not on file Active member of [...] Initial FINDINGS: CTA NECK: AORTIC ARCH/ARCH VESSELS: Smhf-mv-tlkpdovz atherosclerotic plaque at the arch arch and [...] No acute pulmonary process. Emphysema. Medical Decision Mkwcnb-Eucyeurf-Oqovy: 10/15/2019 12:10 AM - PrietoBlanco nicolas Incoming Lab Results From [facility] Specimen Information: Blood Component Collected Lab Specimen Description 10/12/2019 2:17 PM [facility] .BLOOD Special Requests 10/12/2019 2:17 PM [facility] back lt arm 3ml Culture 10/12/2019 2:17 PM [facility] NO GROWTH 3 DAYS Medical Decision Making-Other: Note: Labs, medications, radiologic studies were reviewed with personal review of films Large amounts of data were reviewed Discussed with nursing Staff, retail planner Infection Control and Prevention measures reviewed [...] Patel RN - 10/16/2019 6:15 AM EDT Property Worker bladder scanned patient and bladder scan shows 554 mL, creative services writer straight cath patient and was only [...] loss Fluid Accumulation: 1 - Mild Extremities Reactor Kettle Operator Strength: Not Performed Estimated Daily Nutrient Needs: Energy (kcal): 1.3-1.4 ~> 2684-1143 kcals/d; Weight Used for Energy Requirements: Admission Protein (g): 1.2-1.4 ~> 65-76 gms/d; Weight Used for Protein Requirements: [place] Nutrition Related Findings: Na 131 Wounds: None Current Nutrition Therapies: DIET GENERAL; Anthropometric Measures: Height: 5' 4 (162.6 cm) Current Body Weight: 154 lb (69.9 kg) Admission Body Weight: 154 lb (69.9 kg) Usual Body Weight: 160 lb (72.6 kg)(per pt's ) [place] Body Weight: 120 lbs; % [place] Body Weight 128.3 % BMI: 26.4 BMI [...] Discharge Planning: Too soon to determine Contact: [phone] * Dwayne Hanson MD - 10/15/2019 3:09 PM EDT [facility] Internal Medicine Teaching Residency Program Inpatient Daily Progress Note Patient: Shayy Maynard Date of : 1945 Acct: [id number] Room: Admit date: 10/09/2019 Today's date: 10/15/19 [...] of COPD, primary hypertension was transferred from [facility] for management of infrarenal abdominal aortic aneurysm and for vascular consultation. States she started having lower back pain since . Describes the pain as constant, sharp, 10out of 10 in intensity associated with nausea. Patient went to the emergency department at [facility] to have hypertensive emergency with systolics above 200 and d-dimer was elevated. CT abdomen was done which showed 3.5 infrarenal aortic aneurysm, started on Cardene drip and pain medications we re given. Patient was transferred to [facility] found to be hypoxic in upper [...] Q4H PRN hydrALAZINE, 10 mg, Q6H PRN rstwvikpxu-yselucfrwjhwf-ycqncvip, 1 tablet, Q4H PRN sodium chloride flush, [...] Dwayne Hanson MD Internal Medicine Resident, PGY-1 [facility]; [place], [place] 10/15/2019, 3:09 PM Associated attestation - [...] 3:09 PM EDT Occupational Therapy [facility] Occupational Therapy Not Seen Note DATE: [...] appropriate. Winifred Foster, OT/S * Sho Tierney, ASSOCIATE PROFESSOR OF EDUCATION - 10/15/2019 1:55 PM EDT Physical Therapy Facility/Department: [facility] 2 Daily Treatment Note NAME: Shayy Maynard [...] place: No Restraints: all rail up when ASSOCIATE PROFESSOR OF EDUCATION left, okay with pt Therapy Time Individual Concurrent Group Co-treatment Time In 1326 Time Out 1342 Minutes 16 Timed Code Treatment Minutes: 16 Minutes Sho Tierney PTA * Willie Garcia, FLAQUITO - PURCHASING ANALYST - 10/15/2019 10:38 AM EDT Neurology Nurse [...] who was admitted as a transfer from [facility] 10/09/2019 where she presented with gradually [...] to ensure the accuracy of this automated chipper machine operator, some errors in chipper machine operator may have occurred. * Sailaja Durán RN - 10/15/2019 9:00 AM EDT Pt straight cathed for 850 cc clear yellow urine. Tolerated well. Will continue to monitor. * Alfonso Kendrick MD - 10/15/2019 8:38 AM EDT [facility] - Progress Note Today's Date and Time: [...] antibiotics Medical Decision Making/Summary/Discussion:10/15/2019 Infection Control Recommendations [place] Precautions Antimicrobial Stewardship Recommendations Discontinuation of therapy [...] of . INITIAL HISTORY: Patient transferred from [facility] on 10-09-19 because of low back pain and findings of an infrarenal abdominal aortic aneurysm. Developed onset of back pain on 10-07-19, associated with nausea. She was evaluated at [place] [facility] and found to have a hypertensive emergency with systolic pressures over [address] showed a 3.5 cm infrarenal aortic aneurysm. Her BP was controlled with Cardene drip and the patient was transferred to [facility]. At [facility] patient had signs of hypoxia, [...] file Gets together: Not on file Attends pentecostal service: Not on file Active member of [...] Initial FINDINGS: CTA NECK: AORTIC ARCH/ARCH VESSELS: Whtx-da-pvsnwhfa atherosclerotic plaque at the arch arch and [...] No acute pulmonary process. Emphysema. Medical Decision Yvjnwq-Qkecbkib-Poohq: 10/15/2019 12:10 AM - Prieto, Blanco Incoming Lab Results From [facility] Specimen Information: Blood Component Collected Lab Specimen Description 10/12/2019 2:17 PM [facility] .BLOOD Special Requests 10/12/2019 2:17 PM [facility] back lt arm 3ml Culture 10/12/2019 2:17 PM [facility] NO GROWTH 3 DAYS Medical Decision Making-Other: Note: Labs, medications, radiologic studies were reviewed with personal review of films Large amounts of data were reviewed Discussed with nursing Staff, retail planner Infection Control and Prevention measures reviewed [...] Hanson MD - 10/14/2019 1:29 PM EDT [facility] Internal Medicine Teaching Residency Program Inpatient Daily Progress Note Patient: Shayy Maynard Date of : 1945 Acct: [id number] Room: Admit date: 10/09/2019 Today's date: 10/14/19 [...] of COPD, primary hypertension was transferred from [facility] for management of infrarenal abdominal aortic aneurysm and for vascular consultation. States she started having lower back pain since . Describes the pain as constant, sharp, 10out of 10 in intensity associated with nausea. Patient went to the emergency department at [facility] to have hypertensive emergency with systolics above 200 and d-dimer was elevated. CT abdomen was done which showed 3.5 infrarenal aortic aneurysm, started on Cardene drip and pain medications we re given. Patient was transferred to [facility] found to be hypoxic in upper [...] Q4H PRN hydrALAZINE, 10 mg, Q6H PRN egcjujltjw-rqapqomtglyfh-patvnzdf, 1 tablet, Q4H PRN sodium chloride flush, [...] Dwayne Hanson MD Internal Medicine Resident, PGY-1 [facility]; [place], [place] 10/14/2019, 1:29 PM Associated attestation - [...] signed by Bruce Pelletier MD * Willie Garcia, SHEETMETAL TRADES WORKER - PURCHASING ANALYST - 10/14/2019 11:22 AM EDT Neurology Nurse [...] who was admitted as a transfer from [facility] 10/09/2019 where she presented with gradually [...] to ensure the accuracy of this automated chipper machine operator, some errors in chipper machine operator may have occurred. * Alfonso Kendrick MD - 10/14/2019 10:10 AM EDT [facility] - Progress Note Today's Date and Time: [...] antibiotics Medical Decision Making/Summary/Discussion:10/14/2019 Infection Control Recommendations [place] Precautions Antimicrobial Stewardship Recommendations Discontinuation of therapy [...] of . INITIAL HISTORY: Patient transferred from [facility] on 10-09-19 because of low back pain and findings of an infrarenal abdominal aortic aneurysm. Developed onset of back pain on 10-07-19, associated with nausea. She was evaluated at [place] [facility] and found to have a hypertensive emergency with systolic pressures over [address] showed a 3.5 cm infrarenal aortic aneurysm. Her BP was controlled with Cardene drip and the patient was transferred to [facility]. [place] [facility] patient had signs of hypoxia, [...] file Gets together: Not on file Attends pentecostal service: Not on file Active member of [...] Initial FINDINGS: CTA NECK: AORTIC ARCH/ARCH VESSELS: Exta-vy-kykucyuu atherosclerotic plaque at the arch arch and [...] No acute pulmonary process. Emphysema. Medical Decision Smuoyc-Nidxlkre-Jijpv: Medical Decision Making-Other: Note: Labs, medications, radiologic studies were reviewed with personal review of films Large amounts of data were reviewed Discussed with nursing Staff, retail planner Infection Control and Prevention measures reviewed [...] Ferris RN - 10/13/2019 10:40 PM EDT Property Worker contacted internal med regarding pt complaining of lower abdominal pain. States she has to void but is unable to. Bladder scanned her just now and >999. New order for one time straight cath. Straight cath completed at 2315. 900ml clear, yellow urine out with 63ml residual. Will continue to monitor. 0430- Property Worker contacted internal med regarding pt unable [...] administered. Bowel sounds active. * Linda Adhikari, ASSOCIATE PROFESSOR OF EDUCATION - 10/13/2019 4:16 PM EDT Physical Therapy Facility/Department: [facility] [employer] 2 Daily Treatment Note NAME: Shayy Maynard [...] Hanson MD - 10/13/2019 9:30 AM EDT [facility] Internal Medicine Teaching Residency Program Inpatient Daily Progress Note Patient: Shayy Maynard Date of : 1945 Acct: [id number] Room: Admit date: 10/09/2019 Today's date: 10/13/19 Number of days in the hospital: 4 SUBJECTIVE Admitting Diagnosis: Aneurysm of infrarenal abdominal aorta (HCC) CC: Midline Lower Back Pain Pt examined at bedside. Chart & results reviewed. BP increased overnight - Lawn Care Worker Ironworker gave Norvasc and started IV Hydralazine early [...] of COPD, primary hypertension was transferred from [facility] for management of infrarenal abdominal aortic aneurysm and for vascular consultation. States she started having lower back pain since . Describes the pain as constant, sharp, 10out of 10 in intensity associated with nausea. Patient went to the emergency department at [facility] to have hypertensive emergency with systolics above 200 and d-dimer was elevated. CT abdomen was done which showed 3.5 infrarenal aortic aneurysm, started on Cardene drip and pain medications we re given. Patient was transferred to [facility] found to be hypoxic in upper [...] Q4H PRN hydrALAZINE, 10 mg, Q6H PRN ytiyfxeddt-owrfsodteffla-bkzhmejd, 1 tablet, Q4H PRN sodium chloride flush, [...] Dwayne Hanson MD Internal Medicine Resident, PGY-1 [facility]; [place], [place] 10/13/2019, 9:31 AM Associated attestation - [...] problems. * Overall course ; show no guide changer time. Headache is improved Blood pressure improved Ultrasound renal duplex, concerning for unilateral renal artery stenosis Patient very sleepy Has tenderness in lower back X-ray lumbar spine done at the time of admission, concerning for possible fracture Ordering MRI lumbar spine Electronically signed by Bruce Pelletier MD * Viry Morelos, FLAQUITO - PURCHASING ANALYST - 10/13/2019 8:44 AM EDT NEUROLOGY INPATIENT [...] negative for acute changes -IV Depacon 500mg F9rspqe x3 doses -Continued blood pressure management as [...] to ensure the accuracy of this automated chipper machine operator, some errors in chipper machine operator may have occurred. * Alfonso Kendrick MD - 10/13/2019 7:57 AM EDT [facility] - Progress Note Today's Date and Time: 10/13/2019, 7:57 AM Impression : Fever, etiology to be determined Intermittent Headaches, most likely side effect of the various medications being given for control of HTN. No apparent meningitis Low back pain Aneurysm infrarenal abdominal aorta Centrilobular emphysema Allergy to quinolones, sulfa Recommendations: Monitor off antibiotics Medical Decision Making/Summary/Discussion:10/13/2019 Infection Control Recommendations [place] Precautions Antimicrobial Stewardship Recommendations Discontinuation of therapy [...] of . INITIAL HISTORY: Patient transferred from [facility] on 10-09-19 because of low back pain and findings of an infrarenal abdominal aortic aneurysm. Developed onset of back pain on 10-07-19, associated with nausea. She was evaluated at [place] [facility] and found to have a hypertensive emergency with systolic pressures over [address] showed a 3.5 cm infrarenal aortic aneurysm. Her BP was controlled with Cardene drip and the patient was transferred to [facility]. At [facility] patient had signs of hypoxia, [...] 10-12-19:x2: no growth Sputum : Wound: COVID 8-15-20: Negative Discussed with patient, RN, Neurology.. I [...] file Gets together: Not on file Attends pentecostal service: Not on file Active member of [...] Initial FINDINGS: CTA NECK: AORTIC ARCH/ARCH VESSELS: Altm-rk-tckerzcn atherosclerotic plaque at the arch arch and [...] No acute pulmonary process. Emphysema. Medical Decision Ccikya-Xgdyqarq-Qwigh: Medical Decision Making-Other: Note: Labs, medications, radiologic studies were reviewed with personal review of films Large amounts of data were reviewed Discussed with nursing Staff, retail planner Infection Control and Prevention measures reviewed All prior entries were reviewed Administer medications as ordered Prognosis: Guarded Discharge planning reviewed Follow up as outpatient. Thank you for allowing us to participate in the care of this patient. Please call with questions. Dickson Hutchinson DPM Pager: - Office: * Divina Ferris RN - 10/13/2019 3:00 AM EDT Property Worker contacted internal med regarding pt blood [...] administer. New order for PO 10mg norvasc. Property Worker will continue to monitor BP and pain. * Alfonso Kendrick MD - 10/12/2019 4:32 PM EDT [facility] - Progress Note Today's Date and Time: 10/12/2019, 4:32 PM Impression : Fever, etiology to be determined Intermittent Headaches, most likely side effect of the various medications being given for control of HTN. No apparent meningitis Low back pain Aneurysm infrarenal abdominal aorta Centrilobular emphysema Allergy to quinolones, sulfa Recommendations: Monitor off antibiotics Blood, urine cultures Medical Decision Making/Summary/Discussion:10/12/2019 Infection Control Recommendations [place] Precautions Antimicrobial Stewardship Recommendations Discontinuation of therapy [...] of . INITIAL HISTORY: Patient transferred from [facility] on 10-09-19 because of low back pain and findings of an infrarenal abdominal aortic aneurysm. Developed onset of back pain on 10-07-19, associated with nausea. She was evaluated at [place] [facility] and found to have a hypertensive emergency with systolic pressures over [address] showed a 3.5 cm infrarenal aortic aneurysm. Her BP was controlled with Cardene drip and the patient was transferred to [facility]. At [facility] patient had signs of hypoxia, [...] file Gets together: Not on file Attends pentecostal service: Not on file Active member of [...] Initial FINDINGS: CTA NECK: AORTIC ARCH/ARCH VESSELS: Zlzo-mz-qkiotbhw atherosclerotic plaque at the arch arch and [...] No acute pulmonary process. Emphysema. Medical Decision Fzhdgq-Jdscnrez-Rcrzp: Medical Decision Making-Other: Note: Labs, medications, radiologic studies were reviewed with personal review of films Large amounts of data were reviewed Discussed with nursing Staff, retail planner Infection Control and Prevention measures reviewed All prior entries were reviewed Administer medications as ordered Prognosis: Guarded Discharge planning reviewed Follow up as outpatient. Thank you for allowing us to participate in the care of this patient. Please call with questions. Alfonso Kendrick MD Pager: - Office: * Malissa Anderson, ASSOCIATE PROFESSOR OF EDUCATION - 10/12/2019 2:55 PM EDT Physical Therapy [...] palliative care. No further needs. Malissa Anderson ASSOCIATE PROFESSOR OF EDUCATION * Montserrat Finnegan OTA - 10/12/2019 2:26 PM EDT Occupational Therapy Not Seen Note DATE: 10/12/2019 Name: Shayy Maynard : 1945 Patient not available for Occupational Therapy due to: RN cx d/t pt not feeling well and has a fever. Next Scheduled Treatment: 10/13/2019 * Denys Morris MD - 10/12/2019 1:53 PM EDT [facility] Internal Medicine Teaching Residency Program Inpatient Daily Progress Note Patient: Shayy Maynard Date of : 1945 Acct: [id number] Room: Admit date: 10/09/2019 Today's date: 10/12/19 [...] Q4H PRN hydrALAZINE, 10 mg, Q6H PRN cmklvwbpnl-hszegtxkqfnmq-klvbkwff, 1 tablet, Q4H PRN sodium chloride flush, [...] Denys Morris MD Internal Medicine Resident, PGY-3 [facility]; [place], [place] 10/12/2019, 1:53 PM * Bruce Pelletier MD - 10/12/2019 1:07 PM EDT Patient seen and examined Little sleepy, clonidine discontinued Hypertension controlled Headache improved MRI brain reviewed concerning for meningioma Work-up for secondary hypertension progress * Viry Morelos, FLAQUITO - PURCHASING ANALYST - 10/12/2019 6:51 AM EDT NEUROLOGY INPATIENT [...] to ensure the accuracy of this automated chipper machine operator, some errors in chipper machine operator may have occurred. * Divina Ferris RN - 10/11/2019 10:20 PM EDT Property Worker contacted internal med regarding pt headache of 3. Pt has IV toradol and reglan ordered. Pt is alert and oriented x2. Property Worker instructed to hold IV toradol and reglan and to administer PRN tylenol for the headache. Will continue to monitor. * Divina Ferris RN - 10/11/2019 10:20 PM EDT Property Worker contacted internal med regarding blood pressure 161/62 and temp of 99.9 after administering scheduled clonidine and lopressor. Pt rating headache 05/03. Property Worker instructed to hold scheduled IV toradol and reglan. 0435- Property Worker contacted internal med regarding BP. Property Worker unable to keep SBP <160. Property Worker administered PRN IV hydralazine at 2315 for a pressure in the 170s, pressure went to the 160s then back up.IV labetalol administered at 0315 for SBP in the low 180s. Pressure still in the 170s. No new orders at this time. Property Worker instructed to continue to monitor. 0530- IV hydralazine and PO fioricet administered. No new orders at this time. Will continue to monitor BP. * Divina Ferris RN - 10/11/2019 10:15 PM EDT Property Worker received call from Dr. Kendrick regarding [...] Hanson MD - 10/11/2019 2:46 PM EDT [facility] Internal Medicine Teaching Residency Program Inpatient Daily Progress Note Patient: Shayy Maynard Date of : 1945 Acct: [id number] Room: Admit date: 10/09/2019 Today's date: 10/11/19 [...] of COPD, primary hypertension was transferred from [facility] for management of infrarenal abdominal aortic aneurysm and for vascular consultation. States she started having lower back pain since . Describes the pain as constant, sharp, 10out of 10 in intensity associated with nausea. Patient went to the emergency department at [facility] to have hypertensive emergency with systolics above 200 and d-dimer was elevated. CT abdomen was done which showed 3.5 infrarenal aortic aneurysm, started on Cardene drip and pain medications we re given. Patient was transferred to [facility] found to be hypoxic in upper [...] Q4H PRN hydrALAZINE, 10 mg, Q6H PRN cgkujuawpo-gcnnduhrccwcz-rkzyjobc, 1 tablet, Q4H PRN sodium chloride flush, [...] PLT 202 170 196 BMP: Recent Labs 10/09/1944710/10/1927 10/11/19 0529 NA 141 132* 135 K [...] Dwayne Hanson MD Internal Medicine Resident, PGY-1 [facility]; [place], [place] 10/11/2019, 2:46 PM * Bruce Pelletier [...] Ambulation Assistance: Independent Transfer Assistance: Independent Active Specialist Field Engineer: Yes Occupation: Retired Additional Comments: pt [...] 10/11/2019 12:17 PM EDT Physical Therapy Facility/Department: [place] [address] Initial Assessment NAME: Shayy Maynard : 1945 [...] Ambulation Assistance: Independent Transfer Assistance: Independent Active Specialist Field Engineer: Yes Occupation: Retired Additional Comments: pt [...] needing an MRI. Orders received. * Viry Morelos, FLAQUITO - PURCHASING ANALYST - 10/11/2019 7:24 AM EDT NEUROLOGY INPATIENT [...] tested Data: Lab Results: CBC: Recent Labs 10/09/1944710/10/1962610/11/19 0529 WBC 7.7 7.4 6.8 HGB 14.2 [...] of Toradol 15mg, Reglan 5mg, Benadryl 12.5mg u0qsimu x3 -Continued blood pressure management as you are doing -May consider LP through IR for persistent headache -We will follow Please note that this note was generated using a voice recognition dictation software. Although every effort was made to ensure the accuracy of this automated chipper machine operator, some errors in chipper machine operator may have occurred. * Marely Guardado RN - 10/10/2019 9:18 PM EDT Perfect served seasonal recruiter intermed: Patient is due to get 100mg [...] Hanson MD - 10/10/2019 11:58 AM EDT [facility] Internal Medicine Teaching Residency Program Inpatient Daily Progress Note Patient: Shayy Maynard Date of : 1945 Acct: [id number] Room: Admit date: 10/09/2019 Today's date: 10/10/19 [...] of COPD, primary hypertension was transferred from [facility] for management of infrarenal abdominal aortic aneurysm and for vascular consultation. States she started having lower back pain since . Describes the pain as constant, sharp, 10out of 10 in intensity associated with nausea. Patient went to the emergency department at [facility] to have hypertensive emergency with systolics above 200 and d-dimer was elevated. CT abdomen was done which showed 3.5 infrarenal aortic aneurysm, started on Cardene drip and pain medications we re given. Patient was transferred to [facility] found to be hypoxic in upper [...] Q6H PRN Diagnostic Labs: CBC: Recent Labs 10/09/1944710/10/19626 WBC 7.7 7.4 RBC 4.78 4.53 HGB [...] Dwayne Hanson MD Internal Medicine Resident, PGY-1 [facility]; [place], [place] 10/10/2019, 12:00 PM * Giovanna Rodrigues [...] Prieto DO - 10/09/2019 4:07 AM EDT [facility] ED Emergency Department Emergency Medicine Resident [...] a 74 y.o. Female with transfer from [place]. Low back pain since . 3.4 infrarenal [...] [] Eloped FOLLOW-UP: Velasquez Bunch MD [address] [address] DISCHARGE MEDICATIONS: New Prescriptions No medications on [...] section and content) DATE CREATED AUTHOR 08/13/2017 [facility] DATE CREATED AUTHOR AUTHOR'S ORGANIZ ATION 11/03/2019 [facility] DATE CREATED AUTHOR AUTHOR'S ORGANIZ ATION 11/29/2020 [facility] DATE CREATED AUTHOR AUTHOR'S ORGANIZ ATION 06/18/2022 [facility] DATE CREATED AUTHOR AUTHOR'S ORGANIZ ATION 05/22/2024 [facility] DATE CREATED AUTHOR AUTHOR'S ORGANIZ ATION 12/24/2024 [facility] DATE CREATED AUTHOR AUTHOR'S ORGANIZ ATION 12/31/2024 [facility] Reason for Visit (unrecogniz ed section and content) ReasonCommentsAbdominal PainBack PainStatusReasonSpecialtyDiagnoses / Procedures Referred By ContactReferred To Contact Diagnoses AAA (abdominal aortic aneurysm) (HCC) Giovanna Rodrigues MD [address] [place] [address] [facility] ReasonCommentsEczemaReasonCommentsFollow-up Care Teams (unrecognized sec tion and [...] DateEnd Date Velasquez Bunch MD [address] [place] [address] [facility] - [facility]01/06/23Te MemberRelationshipSpecialtyStart Date End Date Velasquez Bunch MD [address] [place] [address] PCP - [facility]01/06/23Te MemberRelationshipSpecialtyStart Date End Date Velasquez Bunch MD [address] [place] [place] [address] PCP - [facility]01/06/23Te MemberRelationshipSpecialtyStart Date End Date Velasquez Bunch MD [address] [place] [address] PCP - [facility]01/06/23 Team Status: Inactive Member Role/Relationship Status Dates Jaclyn Kimble ([facility] Nehemiah Attending Provider Active Start: December 29, 2024 [...] BE BASED ON THE PRIMARY CLINICAL RECORDS. [facility]. provides no warranty or guarantee of the accuracy or completeness of information in this document.
--- OUTSIDE RECORDS SUMMARY | 2025-01-01 15:58 | XMS_ITS | Clinical Summary ---
Author Organization [facility] Address [address] [place] [address] Care Team Providers Care Behavioral Medical Director Name Role Phone Velasquez Langley MD Primary Care Provider [phone] Allergies Active AllergyReactionsCriticalityNoted DateCommentsAtorvastatinUnknown 01/15/20238231AfyadisaGxmsloe54/22/2116CpzrfdnlwfmubIigdnwn47/04/2018 Other Reaction(s): Vomiting FpldljbqkzIvwkuykuszpDxzt62/04/2018 Other Reaction(s): Anaphylaxis, Unknown Meperidine KdvFiozxvi18/22/2023MoxifloxacinAnaphylaxis,RnxrztoFnrf32/04/2018 Other Reaction(s): Other Had to bring me back. Had to pump my heart NcutgqifyxRcskwzk37/04/2018 Other Reaction(s): Itching Promethazine Hcl8489SszqpoxvjewyHtwjnip83/04/2018 Other Reaction(s): Unknown Reaction ArrxvvxYpwxqyc94/04/2018Sulfa DepyyqsewaeYuuldkd25/04/2018 Other Reaction(s): Itching Wound Dressing MljpdxnxCcetyro47/30/2023 Medications MedicationSigDispense QuantityRefillsLast FilledStart DateEnd DateStatus memantine [...] InformationValueDate RecordedSex Assigned at BirthNot on fileLegal IcsFyevql30/15/2023 7:09 PM EDTGender IdentityNot on fileSexual OrientationNot on file Last Filed Vital Signs Vital SignReadingTime TakenCommentsBlood Pressure--Pulse--Temperature-- Respiratory Rate--Oxygen Saturation--Inhaled Oxygen Concentration--Kanghh44.1 kg (159 lb)01/06/2023 10:45 AM MTJSkpona913 cm (5' 3 )01/06/2023 10:45 AM ESTBody Mass Index28.17103/08/2022 10:45 AM EST Plan of Treatment Health MaintenanceDue DateLast DoneCommentsPneumococcal Vaccine: 65+ Years (2 of 2 - PCV)/COVID-19 Vaccine (5 - 2024- season)2024 12/20/2020, 05/19/2020, 04/21/2020, Additional history existsInfluenza Vaccine (#1)/06/2019 Insurance Care Teams Team MemberRelationshipSpecialtyStart DateEnd Velasquez Langley MD PCP - GeneralFamily Rushmtml10/13/23
--- OUTSIDE RECORDS SUMMARY | 2025-01-02 12:45 | XMS_ITS | Clinical Summary ---
Author Organization [facility] Address [address], [address] [place] [address] Care Team Providers Care Automotive Sales Executive Name Role Phone Velasquez Langley MD Primary Care Provider [phone] Allergies Active AllergyReactionsCriticalityNoted DateCommentsMoxifloxacinAnaphylaxisHigh 06/27/20179050Famjkyanujvei01/04/7886SjjklyobhlBzpakdeupchUcsr52/04/2018Nalbuphine 06/27/20172276Oqlnwjvnagfp25/04/2014Yksnxea96/04/2018Sulfa Lwoifwwiqes10/04/2018 Adhesive Tape06/27/2017 Medications MedicationSigDispense QuantityRefillsLast FilledStart DateEnd [...] tablet 5010/15/2019Active Active Problems ProblemNoted DateDiagnosed DateModerate foathujrsjau77/21/2020Right renal artery koouecjm76/19/2020Secondary qvnivppgbqox16/19/2143Tdyhnryozjz03/19/2020 Overview (10/13/2019): Replacement after MRI Aneurysm of infrarenal abdominal aorta10/09/20192639Vllvunkpjkh34/05/2018 Hypertensive fhtmajk2006/28/20171924Btnfgnxocvhn68/05/2018Acute intractable headache Social History Tobacco UseTypesPacks/DayYears UsedDateSmoking Tobacco: NeverSmokeless Tobacco: NeverAlcohol UseStandard Drinks/WeekCommentsNo0 (1 standard drink = 0.6 oz pure alcohol)CommentsNoSex and Gender InformationValueDate RecordedSex Assigned at BirthNot on fileLegal GjnWkohwx89/04/2018 9:20 PM EDTGender Identity Not on fileSexual OrientationNot on file Last Filed Vital Signs Vital SignReadingTime TakenCommentsBlood Vlllvnvo589/64010/16/2019 3:45 PM EDT Qhutp409810/16/2019 8:25 AM NVXOhqichwwwqm63.7 ??C (98 ??F)10/16/2019 8:25 AM EDT Respiratory Njvu642710/16/2019 8:25 AM EDTOxygen Hevujltugm15%10/16/2019 8:25 AM EDTInhaled Oxygen Concentration--Vujxlh97.4 kg (148 lb 9.4 oz)10/16/2019 6:15 AM SKSIzkjmq324.6 cm (5' 4 )10/15/2019 3:22 PM EDTBody [...] MemberRelationshipSpecialtyStart DateEnd Date Velasquez Langley MD [address] [place] [address] PCP - GeneralFamily Medicine06/27/17
--- OUTSIDE RECORDS SUMMARY | 2025-01-02 12:46 | XMS_ITS | Encounter Summary ---
Author Organization [facility] Address [address] [place] [address] Care Team Providers Care Case Finisher Name Role Phone Velasquez Langley MD Primary Care Provider [phone] Reason for Visit * ReasonOnset DateCommentsMed Ulauls2612/27/2024 Encounter Details DateTypeDepartmentCare Team (Latest Contact Info)Gxplcpofjhg02/03/2025Refill [facility] [address] [place] [address] Kristie Chow MA Mesenteric artery stenosis Social History Tobacco UseTypesPacks/DayYears UsedDateSmoking Tobacco: FormerCigarettes Smokeless Tobacco: NeverAlcohol UseStandard Drinks/WeekCommentsNever0 (1 standard drink = 0.6 oz pure alcohol)[facility] UtilitiesAnswerDate RecordedIn the past 12 months has the electric, gas, oil, or water [employer] threatened to shut off services in your [...] times a week01/27/2024How often do you attend mosque or anglican services?Never01/27/2024o you belong to any clubs or organizations such as mosque groups, unions, fraternal or athletic groups, or school groups?No01/27/2024How often do you attend meetings of the clubs or organizations you belong to?Never01/27/2024re you , , , , never , or living with a partner?Zdoqauo2301/27/2024 AUDIT-CAnswerDate RecordedQ1: How often do you have [...] at all 08/26/2024PHQ-2AnswerDate RecordedPatient Health Questionnaire-2 Score0 05/11/2024[facility] [place] [facility] - Occupational Stress QuestionnaireAnswerDate RecordedDo you feel stress - tense, restless, nervous, or anxious, or unable to sleep at night because yourmind is troubled all the time - these days?To some vvmyyy9301/27/2024UT Safety & EnvironmentAnswerDate RecordedFear of Current or [...] were you homeless or living in a long term (including now)?No08/26/2024 Hunger Vital SignAnswerDate RecordedWithin the past 12 months, you worried that your food would run out before you got the money to buymore.Never true08/26/2024 Within the past 12 months, the food you bought just didn't last and you didn't have money to get more.Never true08/26/2024CommentsNoSex and Gender InformationValueDate RecordedSex Assigned at GxtdjVurxbp31/03/2024 11:08 AM EST Legal CdaVxfeqv90/29/2022 11:01 PM EDTGender KaioxbgqJdusmx03/03/2024 11:08 AM ESTSexual OrientationHeterosexual or Cajeloil88/03/2024 11:08 AM ESTdocumented as of this encounter Plan of Treatment DateTypeDepartmentCare Team (Latest Contact Info)Rylqxbkfnyc93/15/2025 1:20 PM ESTOffice Visit [facility] [address] [place] [address] Bhavesh Fulton MD [address] [place] [address] MS:[address] [place] [address] documented as of this encounter Visit Diagnoses Diagnosis Mesenteric artery stenosis Stricture of artery documented in this encounter Care Teams Team MemberRelationshipSpecialtyStart DateEnd Velasquez Langley MD [address] [facility] [address] [address] PCP - Dfaljwh85/8/24documented as of this encounter
--- OUTSIDE RECORDS SUMMARY | 2025-01-02 12:46 | XMS_ITS | Clinical Summary ---
Author Organization [facility] Address [address] [place] [address] Care Team Providers Care Consumer Affairs Manager Name Role Phone Velasquez Langley MD Primary Care Provider [phone] Allergies Active AllergyReactionsCriticalityNoted LqsdAybfeucgBfybvxqRhrlfkb09/29/2025 EchnkqmkqyjpFylom34/11/2024 Had to bring me back. Had to pump my heart WhuubkdwWlathqx13/22/2514JugokjkefsNtjbjjhkcpfEvzp76/08/2024NalbuphineItching, Xefenkl5306/27/2017 Other Reaction(s): Itching GrpkemueckukZfbvdeq63/04/2018 Other Reaction(s): Unknown Reaction Mggipar-Zho-Kcc Reductase YudzjcvcfmWnakubu84/04/2018Sulfa (Sulfonamide Antibiotics)Itching,Xpiedrg9306/27/2017 Other Reaction(s): Itching AjvgxzDbsadnd96/29/2024 Medications MedicationSigDispense QuantityRefillsLast FilledStart DateEnd DateStatus albuterol [...] ProblemNoted DateDiagnosed DateV-tach12/22/2024Gallbladder colic08/27/2024 Chronic diastolic heart lknayhf3702/02/2024Mesenteric artery ujlmjexk74/09/2024AA (abdominal aortic aneurysm) without obswfnp9201/27/2024enign hypertensive heart disease without congestive heart ypefhdl9212/31/2023oronary artery disease involving [place] coronary artery of [place] heart without angina pectoris 12/31/20232575Cobxsvzlimdqwh45/11/2024iabetes lfnlynlv54/11/2024History of urinary tract nwpykocsi94/11/2024ladder outlet nvdhmzbzwvu80/11/2024ostinfective urethral stricture in zaabhg3712/05/2023cute intractable cyekbmfw93/11/2024sthma 12/05/2023ladder aahaewutt18/11/2024hronic obstructive pulmonary disease 12/05/20235091Lvnzvcw01/11/2024Female tqgguljgk03/11/2024etention of urine 12/05/2023Flank pain12/05/2023Gross xdpfydbwm28/11/2024ure hypercholesterolemia 12/05/2023Other specified postprocedural zgxwao1212/05/2023ostoperative pain of zlpruwdzy28/11/2024ight hand pain12/05/2023Stress incontinence of urine 12/05/2023Urge incontinence of urine12/05/2023OPD without exacerbation 12/05/2023trial iimldtujwajo81/11/2024cute respiratory failure with hypoxia 12/05/2023NSVT (nonsustained ventricular tachycardia)12/02/2023yspnea on /08/2024Moderate yjjnalgegczx96/21/5934Chpebbyxlan97/19/2020 Overview (12/05/2023): Replacement after MRI Aneurysm of infrarenal abdominal aorta10/09/2019 Resolved Problems ProblemNoted DateDiagnosed DateResolved DateV-tach/Unstable bokboc45/07/20237763Izsjgjnkbfqm65Right renal artery sgsdboxl18Secondary flfhgtyxmcdz57 Wqgouoyonhiq98Hypertensive amijxph10 Yosqaxyvafe21 Encounters DateTypeDepartmentCare OewgFxjbuyozjdi58/05/2025Orders Only [facility] [address] [place] [facility] [place] [address] Renetta Lainez MA Paroxysmal atrial fibrillation (CMS/HCC) (Primary Dx)12/27/2024[facility] [address] [place] [facility] [place] [facility] [place] [address] Kristie Chow MA Mesenteric artery dmjihsab27/29/2025 2:00 PM EDTOffice Visit [facility] [address] [place] [facility] [place] [address] Bhavesh Fulton MD Chronic diastolic heart failure (CMS/HCC) (Primary Dx); Coronary artery disease involving port gamble coronary artery of port gam[place] heart without angina pectoris; Paroxysmal atrial fibrillation (CMS/HCC); V-tach (CMS/HCC); Abdominal aortic aneurysm (AAA) without rupture, unspecified part; Mesenteric artery stenosis; Benign hypertensive heart disease without congestive heart failure; Pure hypercholesterolemia; Type 2 diabetes mellitus without complication, without long-term current use of insulin (CMS/HCC)12/22/2024Orders Only [facility] [address] [place] [facility] [place] [facility] [place] [address] Kristie Chow MA ZAVALA (dyspnea on exertion) (Primary Dx)12/15/2024[facility] [address] [place] [address] Ron Crooks PA-C Mesenteric artery nmvsytev67/28/2025Telephone [facility] [address] [place] [facility] [place] [address] Renetta Lainez MA from Last 3 Months Family History RelationNameStatusCommentsFatherDeceasedMotherDeceased Social History Tobacco UseTypesPacks/DayYears UsedDateSmoking Tobacco: FormerCigarettes Smokeless Tobacco: Never Tobacco Cessation:Counseling Given: Yes Alcohol UseStandard Drinks/WeekCommentsNever0 (1 standard drink = 0.6 oz pure alcohol)[facility] UtilitiesAnswerDate RecordedIn the past 12 months has [...] times a week01/27/2024How often do you attend buddhism or jainism services?Never01/27/2024o you belong to any clubs or organizations such as buddhism groups, unions, fraternal or athletic groups, or school groups?No 01/27/2024How often do you attend meetings of the clubs or organizations you belong to?Never01/27/2024re you , , , , never , or living with a partner?Oxmzjif6101/27/2024UDIT-CAnswerDate RecordedQ1: How often do you have a [...] hard at all08/26/2024PHQ-2AnswerDate Recorded Patient Health Questionnaire-2 Ktjnc822Finintermountain medical center [place] of Occupational Health - Occupational Stress QuestionnaireAnswerDate RecordedDo you feel stress - tense, restless, nervous, or anxious, or unable to sleep at night because your mind is troubled all the time - these days?To some bpubmx2101/27/2024UT Safety & EnvironmentAnswerDate RecordedFear of Current or [...] were you homeless or living in a half-way (including now)?No08/26/2024Hunger Vital SignAnswerDate RecordedWithin the past 12 months, you worried that your food would run out before you got the money to buymore.Never true08/26/2024Within the past 12 months, the food you bought just didn't last and you didn't have money to get more.Never true 08/26/2024CommentsNoSex and Gender InformationValueDate RecordedSex Assigned at DqvciYwgdxn84/03/2024 11:08 AM ESTLegal FgcIglvti88/29/2022 11:01 PM EDTGender UjvcntczDhacvw03/03/2024 11:08 AM ESTSexual OrientationHeterosexual or Eegcuaqt07/03/2024 11:08 AM EST Last Filed Vital Signs Vital SignReadingTime TakenCommentsBlood Rgauafks878/6710 2:12 PM EDT Imzcf744812/22/2024 2:12 PM WXHDvmpenhoagi96.2 ??C (98.9 ??F)08/27/2024 8:00 AM EDTRespiratory Cutf272708/27/2024 11:00 AM EDTOxygen Ftuljnbdzu41%12/22/2024 2:12 PM EDTInhaled Oxygen Concentration--Iyioag25.6 kg (171 lb)12/22/2024 2:12 PM EDT Emsfcr677 cm (5' 3 )12/22/2024 2:12 PM EDTBody Mass Index30.291 2:12 PM EDT Plan of Treatment DateTypeDepartmentCare Team (Latest Contact Info)Dwhmstuchsh83/15/2025 1:20 PM ESTOffice Visit [facility] [address] [place] [address] Bhavesh Fulton MD [address] [place] [address] MS:[address] [place] [address] Health MaintenanceDue DateLast DoneCommentsMedicare Annual Wellness (AWV) 4Diabetes: Retinopathy Qcvqrvofa81/30/1954Adult Jsljcjf8505/23/1965Zoster Vaccines (1 of 2)05/23/1993Pneumococcal Vaccine: 50+ Years (2 of 2 - PCV) /Diabetes: Hemoglobin A1C/510/4COVID-19 Vaccine ( - 2024- season)510/, 05/19/2020, 04/21/2020, Additional history existsDepression Xpeyzxjan18Fall Risk Screening /05/2024Influenza CsfiewaBqdbcqdho86/22/2025, 12/08/2023, 12/25/2022, Additional history existsHIB VaccinesAged OutNo [...] IdentifierShelf Expiration DateModel / Serial / LotHeli-Fx Material Control Specialist And Endoanchor Cassette Implanted:Qty: 1 on 01/28/2024 by [facility]/A: [id number]-85 / / [id number]:7 IMPLANTED, 10 COME IN A BOXEndurant Stent Graft System Implanted:Qty: 1 on 01/28/2024 by [facility]ep [facility] at [facility] CenterGraftN/A: [id number] / [id number] / Endurant Ii Stent Graft Implanted:Qty: 1 on 01/28/2024 by [facility]ep [facility] at [facility]N/A: [id number] / [id number] / Description:LEFT COMMON ILIACEndurant Ii Stent Graft Implanted:Qty: 1 on 01/28/2024 by [facility]ep [facility] at [facility] CenterGraftN/A: [id number] / [id number] / Description:RIGHT COMMON ILIACStent,Express2,Bili,[id number] - [id number] Implanted:Qty: 1 on 02/05/2024 by Gilberto Whitten MD at [facility]entN/A: AbdomenBoston [id number]/05/2025 [id number] / / [id number],Expr Reid Moe,[id number] - [id number] Implanted:Qty: 1 on 02/05/2024 by Gilberto Whitten MD at [facility] HospitaltentN/A: AbdomenBOSTON SCIENTIFIC/[id number]/01/2027 [id number] / / [id number] Procedures Procedure NamePriorityDate/TimeAssociated DiagnosisCommentsHEMOGLOBIN Y7OQtp-Mc 12/05/2023 3:35 AM EDT from Last 3 Months or Most Recently Relevant to Health Maintenance Results * Hemoglobin A1c (12/05/2023 3:35 AM EDT)ComponentValueRef RangeTest Method Analysis TimePerformed AtPathologist SignatureHemoglobin A1C5.34.0 - 6.0 % 12/05/2023 10:16 AM [facility] ([facility])Estimated Average Btgofrx094 mg/dL12/05/2023 10:16 AM [facility] ([facility])Specimen (Source) Anatomical Location / LateralityCollection Method / VolumeCollection Time Received TimeBloodVenous blood specimen / UnknownArterial Line / Unknown 12/05/2023 3:35 AM EDT1 4:04 AM EDT Narrative Authorizing ProviderResult TypeResult StatusDanieal Van MDLAB BLOOD ORDERABLES Final ResultPerforming OrganizationAddressCity/State/ZIP CodePhone Number [facility] ([facility]) [address] [place] [address] from Last 3 Months or Most Recently Relevant to Health Maintenance Insurance Advance Directives * Full Code (Latest Code Status on File) Date ActivatedDate InactivatedComments08/26/2024 5:06 PM08/27/2024 2:13 PM * Full Code Date ActivatedDate TmggbvucnwmUxszpkme68/9/2024 6:08 AM02/12/2024 1:43 PM * Full Code Date ActivatedDate XnkxmkqyzmeWmcvqebt98/3/2024 5:00 PM01/31/2024 2:34 PM * Full Code Date ActivatedDate FqpvffdbqgnPqnmdokd72/11/2024 2:56 AM12/06/2023 2:19 PM Care Teams Team MemberRelationshipSpecialtyStart DateEnd Date Velasquez Langley MD [address] [facility] [place] [address] PCP - Usyzzuq50/8/24
--- OUTSIDE RECORDS SUMMARY | 2025-01-02 12:46 | XMS_ITS | Encounter Summary ---
Author Organization [facility] Address [address] [place] [address] Care Team Providers Care Remarketing Rep Name Role Phone Velasquez Langley MD Primary Care Provider Encounter Details DateTypeDepartmentCare Team (Latest Contact Info)Hvpclmitptv60/29/2025Orders Only [facility] [address] [place] [address] Kristie Chow MA ZAVALA (dyspnea on exertion) (Primary Dx) Social History Tobacco UseTypesPacks/DayYears UsedDateSmoking Tobacco: FormerCigarettes Smokeless Tobacco: NeverAlcohol UseStandard Drinks/WeekCommentsNever0 (1 standard drink = 0.6 oz pure alcohol)[facility] UtilitiesAnswerDate RecordedIn the past 12 months has the [employer], gas, oil, or water [employer] threatened to shut off services in your [...] times a week01/27/2024How often do you attend evangelical or zoroastrianism services?Never01/27/2024o you belong to any clubs or organizations such as evangelical groups, unions, fraternal or athletic groups, or school groups?No01/27/2024How often do you attend meetings of the clubs or organizations you belong to?Never01/27/2024re you , , , , never , or living with a partner?Pkbfdmp6401/27/2024 AUDIT-CAnswerDate RecordedQ1: How often do you have [...] at all 08/26/2024PHQ-2AnswerDate RecordedPatient Health Questionnaire-2 Score0 05/11/2024[facility] [place] [facility] - Occupational Stress QuestionnaireAnswerDate RecordedDo you feel stress - tense, restless, nervous, or anxious, or unable to sleep at night because yourmind is troubled all the time - these days?To some cubvbo6201/27/2024UT Safety & EnvironmentAnswerDate RecordedFear of Current or [...] true08/26/2024CommentsNoSex and Gender InformationValueDate RecordedSex Assigned at WeoorYsyups44/03/2024 11:08 AM EST Legal BnoNxpqoy16/29/2022 11:01 PM EDTGender UttbjvzaDqsyyq72/03/2024 11:08 AM ESTSexual OrientationHeterosexual or Nwmvatvt04/03/2024 11:08 AM ESTdocumented as of this encounter Functional Status * BPAnswerDate of UsiwuvjdsdKorcpw168 2:12 PM Guerline Sheth MA * PulseAnswerDate of BjpzgxrmwnSmqzir3585/29/2025 2:12 PM Guerline Sheth MA * Patient PositionAnswerDate of HkyxohdfieLctoukFhhopjt31/29/2025 2:12 PM EDT Guerline Carlos MA * BPAnswerDate of YrlsotcyxyYdldtc836/6712/22/2024 2:12 PM Guerline Sheth MA * PulseAnswerDate of WmshqortvjOjwmop8364/29/2025 2:12 PM Guerline Sheth MA * JvJ7MulgquIozq of QplfiggaaoCbywye9698/29/2025 2:12 PM Guerline Sheth MA * BP LocationAnswerDate of AssessmentAuthorLe arm12/22/2024 2:12 PM EDT Guerline Carlos MA * Patient PositionAnswerDate of WyapmsorkbIqomhiPpwrsch20/29/2025 2:12 PM EDT Guerline Carlos MA documented as of this encounter Plan of Treatment DateTypeDepartmentCare Team (Latest Contact Info)Jlfasbyibhv06/15/2025 1:20 PM ESTOffice Visit [facility] [address] [place] [id number] Bhavesh Fulton MD [address] [facility] [id number] [place] [address] NameTypePriorityAssociated DiagnosesOrder SchedulePulmonary function testing Spirometry; Body Box (lung volumes, airway resistance, and SVC), DLCOPFTRoutine ZAVALA (dyspnea on exertion) Expected: 12/22/2024 (Approximate), Expires: 12/22/2025documented as of this encounter Visit Diagnoses Diagnosis ZAVALA (dyspnea on exertion)- Primary Other dyspnea and respiratory abnormality documented in this encounter Care Teams Team MemberRelationshipSpecialtyStart DateEnd Date Velasquez Langley MD [address] [facility] [address] [address] PCP - Tivdqxh45/8/24documented as of this encounter
--- OUTSIDE RECORDS SUMMARY | 2025-01-02 12:46 | XMS_ITS | Encounter Summary ---
Author Organization [facility] Address [address] [place] [address] Care Team Providers Care Flat Surfacer Jewel Name Role Phone Velasquez Langley MD Primary Care Provider [phone] Reason for Referral * (Routine) - Pending ReviewSpecialtyDiagnoses / ProceduresReferred By Contact Referred To Contact Diagnoses Paroxysmal atrial fibrillation (CMS/HCC) Procedures ECG 12 lead Isabelle Maldonado CNP [address] [place] [address] Phone: tel: fax: Referral IDStatusReasonStart DateExpiration DateVisits RequestedVisits [id number]/ Encounter Details DateTypeDepartmentCare Team (Latest Contact Info)Tlmpppkrmxj53/05/2025Orders Only [facility] Heart at [facility] [address] [place] [address] Migel RenettaONESIMO Paroxysmal atrial fibrillation (CMS/HCC) (Primary Dx) Social History Tobacco UseTypesPacks/DayYears UsedDateSmoking Tobacco: FormerCigarettes Smokeless Tobacco: NeverAlcohol UseStandard Drinks/WeekCommentsNever0 (1 standard drink = 0.6 oz pure alcohol)[facility] UtilitiesAnswerDate RecordedIn the past 12 months [...] times a week01/27/2024How often do you attend oriental orthodox or shinto services?Never01/27/2024o you belong to any clubs or organizations such as oriental orthodox groups, unions, fraternal or athletic groups, or school groups?No01/27/2024How often do you attend meetings of the clubs or organizations you belong to?Never01/27/2024re you , , , , never , or living with a partner?Drepjwf7201/27/2024 AUDIT-CAnswerDate RecordedQ1: How often do you have [...] at all 08/26/2024PHQ-2AnswerDate RecordedPatient Health Questionnaire-2 Score0 05/11/2024[facility] [place] [facility] Health - Occupational Stress QuestionnaireAnswerDate RecordedDo you feel stress - tense, restless, nervous, or anxious, or unable to sleep at night because yourmind is troubled all the time - these days?To some aooxtc4401/27/2024UT Safety & EnvironmentAnswerDate RecordedFear of Current or [...] true08/26/2024CommentsNoSex and Gender InformationValueDate RecordedSex Assigned at PxitgIxjtud00/03/2024 11:08 AM EST Legal CmoTeqpyq59/29/2022 11:01 PM EDTGender JcqmhycwTutdhl43/03/2024 11:08 AM ESTSexual OrientationHeterosexual or Mopezbll58/03/2024 11:08 AM ESTdocumented as of this encounter Plan of Treatment DateTypeDepartmentCare Team (Latest Contact Info)Fdgxoaguczl16/15/2025 1:20 PM ESTOffice Visit [place] [address] [place] [address] Bhavesh Fulton MD [address] [place] [address] NameTypePriorityAssociated DiagnosesOrder ScheduleECG 12 leadECGRoutine Paroxysmal atrial fibrillation (CMS/HCC) Ordered: 12/29/2024documented as of this encounter Visit Diagnoses Diagnosis Paroxysmal atrial fibrillation (CMS/HCC)- Primary Atrial fibrillation documented in this encounter Care Teams Team MemberRelationshipSpecialtyStart DateEnd Velasquez Langley MD [address] [facility] [address] [address] PCP - Ppsbkrx55/8/24documented as of this encounter
--- OUTSIDE RECORDS SUMMARY | 2025-01-02 12:46 | XMS_ITS | Clinical Summary ---
Author Organization [facility] Address [address] [place] [address] Care Team Providers Care Seismic Prospecting Supervisor Name Role Phone Unavailable Primary Care Provider Unavailabl e Social History Tobacco UseTypesPacks/DayYears UsedDateSmoking Tobacco: Never Assessed CommentsUnknownSex and Gender InformationValueDate RecordedSex Assigned at Not on fileLegal RduScohgp39/02/2012 9:24 AM ESTGender IdentityNot on fileSexual OrientationNot on file Plan of Treatment Not on file
--- OUTSIDE RECORDS SUMMARY | 2025-01-02 12:46 | XMS_ITS | Clinical Summary ---
Author Organization [facility] tem Address [id number] [place] [address] Care Team Providers Care Medical Coding Technician Name Role Phone Velasquez Langley MD Primary Care Provider [phone] Allergies Active AllergyReactionsCriticalityNoted PicuHbuonmhxKiisrugvbzez23/22/2019 Tjfhdmybywxlg58/22/9350Ygxnouxmpk83/22/4327Qrorygbknn84/22/2019Promethazine 10/15/20186617Bmvremr-Hdd-Hlq Reductase Chuukcmcaz13/22/2019Sulfa (Sulfonamide Antibiotics)10/15/2018 Medications MedicationSigDispense QuantityRefillsLast FilledStart DateEnd DateStatus ezetimibe (ZETIA) 10 mg tablet Take 10 mg by mouth daily.Active irbesartan (AVAPRO) 300 mg tablet Take 300 mg by mouth nightly.Active metoprolol tartrate (LOPRESSOR) 50 mg tablet Take 100 mg by mouth 2 (two) times a day.Active Social History Tobacco UseTypesPacks/DayYears UsedDateSmoking Tobacco: FormerSmokeless Tobacco: NeverChildcareAnswerDate HelwcnaeHayyscneqRqtpbji22/12/2019EmploymentAnswerDate DcxiimakKvaybzygydFktvphn61/12/2019Purpose - LifeAnswerDate RecordedPurpose and direction in itqdIdbhsud67/11/2021CommentsNoSex and Gender Information ValueDate RecordedSex Assigned at BirthNot on fileLegal EluRncghf94/06/2015 11:42 AM EDTGender IdentityNot on fileSexual OrientationNot on file Last Filed Vital Signs Vital SignReadingTime TakenCommentsBlood Trrnujen650/7708 10:41 PM EDT Ywgnj2375 10:41 PM HIMKougbfohqqx96.7 ??C (98 ??F)10/15/2018 10:41 PM EDTRespiratory Xvsr065910/15/2018 10:41 PM EDTOxygen Hcdquqbifp25%10/15/2018 8:09 PM EDTInhaled Oxygen Concentration--Hyyitf71.8 kg (165 lb)10/15/2018 7:26 PM EDT Djdakr278.6 cm (5' 4 )10/15/2018 7:26 PM EDTBody Mass Index28.32010/15/2018 7:26 PM EDT Plan of Treatment Health MaintenanceDue DateLast DoneCommentsDepression Jfkhcilvz79/30/1956Tobacco Hkylozdvf55/30/1956DTaP,Tdap and Td Vaccines (1 - Tdap)05/23/1962Zoster (Shingles) Vaccine (1 of 2)05/23/1993Fall Risk Ghfrychmb72/30/2009RSV ( or age 60+ yrs) (1 - 1-dose 75+ series)05/23/2018Influenza Yowwtwc0210/25/2024 Medical Devices Not on file Insurance Care Teams Team MemberRelationshipSpecialtyStart Date Velasquez Langley MD PCP - GeneralFamily Medicine10/15/18
--- OUTSIDE RECORDS SUMMARY | 2025-01-02 12:47 | XMS_ITS | CCD ---
Author Organization [facility] CliniSyct Care Team Providers Care Computer Systems Technology Instructor Name Role Phone VELASQUEZ BUNCH Unavailable Unavailable [...] DR HOLDEN Attending Unavailable HOY ., DR HOLEDN Primary Care Unavailable HOY ., DR HOLDEN [...] Provider Velasquez Bunch MD Primary Care Provider CURRY RED Attending Unavailable IVA TA Attending [...] CELENA Attending Unavailable YAÑEZ, CELENA Attending Unavailable PERNEYOVANY Attending Unavailable NAZZAL, MUNIER Attending Unavailable HERNANDEZ, KIRSTIE Referring Unavailable NAZZAL, DLIER Attending Unavailable NAZZAL, MUNIER Admitting Unavailable Diab ([facility]) Jaclyn MACIAS Attending Provider Velasquez Bunch Admitting Unavailable Velasquez Bunch Primary Care Unavailable Velasquez Bunch Attending Unavailable Lamin ([facility])Jaclyn Admitting Unavailable Lamin ([facility])Jaclyn Attending Unavailable Allergies Allergy ClassificationReported Allergen(s)Allergy TypeDate of OnsetReaction(s) Facility (8 sources)Adhesive Tape; Translations: [Adhesive tape]Propensity to adverse reactions to glll75-66-2895Sbtuupw Formerly [facility], [place], [place] (11 sources)CiprofloxacinDrug Muxdazm15-43-7001DeikhwdWmxue [facility]- [place], [place] (1 source)Hmg-Coa Reductase Inhibitors (Statins)Propensity to adverse reactions to dabp74-40-4718[place] (12 sources)Meperidine; Translations: [MEPERIDINE]Drug Muavkqr71-20-7151 [place] (12 sources)moxifloxacin; Translations: [MOXIFLOXACIN]Drug Sgwbznp56-76-2941 Anaphylaxis, [place], [place] (12 sources)Nalbuphine; Translations: [NALBUPHINE]Drug Rxbqalj65-06-0898Ebrmuze [place], [place] (12 sources)Promethazine; Translations: [PROMETHAZINE]Drug Nmdgyce21-30-3628 [place], [place] (1 source)Sulfonamides (Antibiotic)Propensity to adverse reactions to drug 21-68-7165[place]qskyChe[place], [place] (3 sources)black walnut pollen extract; Translations: [WYBYLPO-VND-HCQ REDUCTASE INHIBITORS]Drug Soazvnf38-05-9987[facility] (2 sources)CiprofloxacinDrug Yuvfobc77-65-0250Yas [facility] Repository (2 sources)LevamisoleDrug Wlxnuds38-74-5846Dco [facility] Repository (2 sources)MeperidineDrug Sdxrxks23-19-1022Oft [facility] Repository (2 sources)moxifloxacinDrug Zaeitpp50-79-2800XeuGood [facility]aritan Hospital Rep[facility] (2 sources)NalbuphineDrug Nkhpogq34-71-4614Aas [facility] Repository (1 source)Sulfonamides (Antibiotic)Drug allergy (disorder)22-05-1079Thy [facility] Repository (5 sources)Sulfacetamide; Translations: [sulfacetamide]Drug Elvebsq77-65-1852 Unknown Reaction, [facility]chingUniversity [facility] (6 sources)Sulfur; Translations: [SULFUR]Drug Vpejubc76-79-4858EkmryfkUniversity Hospitals [facility] (5 sources)Gsberlv-WBV-YkJ Reductase Inhibitor; Translations: [Riubpdu-NUW-MnT Reductase Inhibitor]Allergy to gqvyrvkiz12-96-2199[facility]ck[facility]qTr[facility] (6 sources)atorvastatinDrug Pzercdl25-44-7014MtfdmkyVATW Healthcare Work Phone: (7 sources)cefdinir; Translations: [CEFDINIR]Drug Raiyllb78-35-7564CkkotpeVLHN Healthcare (6 sources)HMG-CoA reductase inhibitorDrug Msgnzmh14-53-9276FxpoxkwPJNG Healthcare (6 sources)MeperidineDrug Mnxtktk81-07-4025BjristdVMTX Healthcare (6 sources)PromethazineDrug Wlqedja48-95-7728HOSI [facility] (6 sources)Sulfonamides (Antibiotic)Drug Jhzhoxm21-37-6504MalpoanHDXA Healthcare (6 sources)Wound Dressing AdhesiveDrug Yfqnnat65-07-0303YrqgnamVOMJ Healthcare (1 source)Aspirin; Translations: [ASPIRIN]Drug Juizhpp62-32-1145SqxsnmjkcyDunlap [facility] Rep[facility] (1 source)Sulfonamides (Antibiotic); Translations: [SULFA (SULFONAMIDE ANTIBIOTICS)]Propensity to adverse reactions to drug (disorder)06-27-[address] [facility] Repository (1 source)CiprofloxacinDrug Unmjape31-21-4539MctgohcayUniversity [facility]als [facility] (1 source)MeperidineDrug Vzwkrfd68-83-6441TcephrqioUniversity Hospitals [facility] (1 source)moxifloxacinDrug Rggoglr07-29-6651PjdjslzrvUniversity [facility]als [facility] (1 source)NalbuphineDrug Unaluck80-09-5623ZvcoirlivUniversity [facility]als [facility] (1 source)PromethazineDrug Rxxanst28-53-3018BgyjwtkbmUniversity Hospitals [facility] Rep[facility] Medications Current Medications MedicationDrug Class(es)DatesSig (Normalized)Sig (Original)acetaminophen 500 mg oral tablet (3 sources)Start: 66-27-3994hxso 2 tablets by mouth every six hours as needed for painStart: 99-62-4957lhsbentcqtxer (TYLENOL) tablet 650 mgacetaminophen 325 mg / butalbital 50 mg / caffeine 40 mg oral tablet (1 source)Barbiturate, Central Nervous System Stimulant, MethylxanthineStart: 80-44-0970sdqmdxotzp-acetaminophen-caffeine (FIORICET, ESGIC) per tablet 1 tabletacetaminophen 325 mg / HYDROcodone bitartrate 5 mg oral tablet (1 source)Opioid AgonistStart: 05-56-5120mkvg 1 tablet by mouth every four to six hours as needed for gjjpyyd820208 200 actuat albuterol 0.09 mg/actuat metered dose inhaler (4 sources)beta2-Adrenergic AgonistStart: 18-31-1840ixtr 1 puff(s) by inhalation twice daily as needed for wheezingStart: 98-34-5450Gwsttmduo Sulfate Active INHALATION April 08, 2023 12:00amalbuterol 0.833 mg/ml / ipratropium bromide 0.167 mg/ml inhalant solution (2 sources)Anticholinergic, beta2-Adrenergic AgonistStart: 10-11-2019 ipratropium-albuterol (DUONEB) nebulizer solution 1 ampuleStart: 10-09-2019 End: ampule, Inhalation, EVERY 4 HOURS WHILE AWAKE, First dose on 10/09/19 at 1600amiodarone hydrochloride 200 mg oral tablet (5 sources)AntiarrhythmicStart: 31-25-9367txby 2 tablets by mouth twice daily, then [...] (5 sources)Dihydropyridine Calcium Channel BlockerStart: 06-29-2017 End: 71-89-0220mdrv 1 tablet by mouth once dailyamLODIPine (NORVASC) 10 MG tablet Take 1 tablet by mouth daily 30 tablet 3 10/15/2019 Activeapixaban 5 mg oral tablet (5 sources)Factor Xa Inhibitortake 1 tablet by mouth every twelve hoursEliquis 5 MG tablet 5 mg every 12 (twelve) hours Activeaspirin 81 mg chewable tablet (2 sources)Platelet Aggregation Inhibitor, Nonsteroidal Anti-inflammatory Drug Start: 11-84-8597kxmx 1 tablet by mouth once dailyaspirin 81 MG chewable tablet Take 1 tablet by mouth daily 30 tablet 3 10/16/2019 Activeaugmented betamethasone 0.5 mg/ml topical cream (6 sources)Corticosteroidbetamethasone, augmented, (Diprolene AF) 0.05 % cream Indications: Atopic Dermatitis Apply 1 application topically in the morning and 1 application before bedtime. Activebisacodyl 10 mg rectal suppository (1 source)Stimulant LaxativeStart: 94-84-0952kzuazcxgi (DULCOLAX) suppository 10 mgcalcium chloride 0.0014 meq/ml / potassium chloride 0.004 meq/ml / sodium chloride 0.103 meq/ml / sodium lactate 0.028 meq/ml injectable solution (1 source)Start: 59-95-3761scmqcfin ringers infusiondocusate sodium 100 mg oral capsule (2 sources)Start: 10-17-2019 End: 21-76-7715zsdo 2 capsules by mouth once dailydocusate sodium (COLACE) 100 MG capsule Take 2 capsules by mouth daily 60 capsule 1 10/17/2019 11/17/2019 ActiveStart: 60-31-9665rcyynwyw sodium (COLACE) capsule 200 mgdoxycycline hyclate 100 mg oral tablet (1 source)Tetracycline-class DrugStart: 69-49-8373okva 1 tablet by mouth twice daily2 ml dupilumab 150 mg/ml auto-injector (3 sources)Interleukin-4 Receptor alpha AntagonistStart: 01-14-2023 End: 63-37-3633Codohazh 300 MG/2ML injection Indications: Other atopic dermatitis Inject 2 mL (300 mg) under the skin every 14 (fourteen) days. 4 mL 01/14/2023 01/16/2024 Discontinued (Side effects)empagliflozin 10 mg oral tablet (8 sources)Sodium-Glucose Cotransporter 2 InhibitorStart: 92-70-8172yles 1 tablet by mouth once daily as needed0.4 ml enoxaparin sodium 100 mg/ml prefilled syringe (1 source)Low Molecular Weight HeparinStart: 11-31-7055bfukev 40 mg by subcutaneous injection once daily40 mg, Subcutaneous, DAILY, First dose on 10/09/19 at 1245ezetimibe 10 mg oral tablet (12 sources)Dietary Cholesterol Absorption InhibitorStart: 42-40-5028moro 1 tablet by mouth once daily at bedtimefexofenadine hydrochloride 180 mg oral tablet (5 sources)Histamine-1 Receptor AntagonistStart: 01-16-2024 End: 14-45-9140juyw 1 tablet by mouth once dailyfexofenadine (Brenda) 180 MG tablet Indications: Other atopic dermatitis Take 1 tablet daily, by mouth, 30 days 30 tablet 11 01/16/2024 05/21/2024 Discontinuedfurosemide 20 mg oral tablet (10 sources)Loop DiureticStart: 40-11-8587mpai 1 tablet by mouth once daily as needed for edemafurosemide (Lasix) 8 MG/ML solution Take by mouth Daily. Active glucagon (rdna) 1 mg injection (1 source)Antihypoglycemic AgentStart: 53-68-4602fkzacukx (rDNA) injection 1 mg 150 ml glucose 50 mg/ml injection (3 sources)Start: 85-13-1634uzovublp 5 % solutionStart: 26-84-5314wqhdzly (GLUTOSE) 40 % oral gel 15 gStart: 31-72-4955fxvahvph 50 % IV solution hydrALAZINE hydrochloride 100 mg oral tablet (3 sources)Arteriolar VasodilatorStart: 06-63-8232crph 1 tablet by mouth every eight hourshydrALAZINE (APRESOLINE) 100 MG tablet Take 1 tablet by mouth every 8 hours 90 tablet 3 10/15/2019 ActiveStart: 24-08-8962rhipGGKTIMJ (APRESOLINE) tablet 100 mgStart: 05-68-6004gakuPWWDPMO (APRESOLINE) injection 10 mg hydroCHLOROthiazide 25 mg oral tablet (10 sources)Thiazide DiureticStart: 15-63-4925wmpg 1 tablet by mouth once daily in the morningtake 2 tablets by mouth in the morninghydroCHLOROthiazide (HYDRODiuril) 12.5 MG tablet Take 25 mg by mouth in the morning. Active hydrOXYzine hydrochloride 25 mg oral tablet (10 sources)AntihistamineStart: 01-16-2024 End: 35-65-6256fkbd 1 tablet by mouth every 30 days as neededhydrOXYzine HCl (Atarax) 25 MG tablet Indications: Other atopic dermatitis Take 1 tablet, by mouth,as needed for itching at bedtime, 30 day supply. 30 tablet 11 01/16/2024 05/21/2024 DiscontinuedStart: 61-86-1410pthg 1 tablet by mouth four times daily as neededhydrOXYzine HCl (Atarax) 25 MG tablet TAKE 1 TABLET BY MOUTH 4 TIMES A DAY NEEDED FOR 10 DAYS 11/13/2023 Activeinsulin lispro 100 unt/ml injectable solution (2 sources)Insulin AnalogStart: 74-10-2610phflosy lispro (HUMALOG) injection vial 0-3 Units24 hr [...] sources)Nonsteroidal Anti-inflammatory Drug, Cyclooxygenase InhibitorStart: 10-15-2019 End: 30-31-6862wqmigmiho (TORADOL) injection 15 mgStart: 10-09-2019 End: 45-92-5365lhgvjskrw (TORADOL) injection 15 mglabetalol (NORMODYNE;TRANDATE) injection syringe 10 mg (1 source)Start: 96-76-2551sticxowfr (NORMODYNE;TRANDATE) injection syringe 10 mglisinopril 40 mg oral tablet (4 sources)Angiotensin Converting Enzyme InhibitorStart: 29-40-7772hwzw 1 tablet by mouth once dailylisinopril (PRINIVIL;ZESTRIL) 40 MG tablet Take 1 tablet by mouth daily 30 tablet 3 10/16/2019 ActiveStart: 24-32-9854rascsvhgbo (PRINIVIL;ZESTRIL) tablet 40 mgStart: 10-10-2019 End: 52-94-3803lcjncsseoc (PRINIVIL;ZESTRIL) tablet 20 mgmeclizine hydrochloride 25 mg oral tablet (14 sources)AntiemeticStart: 63-87-5873iksb 1 tablet by mouth once daily as needed for dizzinessStart: 10-15-2019 End: 36-79-8735ioohbluxx (ANTIVERT) tablet 12.5 mgStart: 10-09-2019 End: 14-23-4798uxrtydfiy (ANTIVERT) tablet 25 mgtake 1 tablet by mouth three times daily as needed for dizzinessmeclizine (Antivert) 25 MG tablet Take 25 mg by mouth 3 (three) times a day as needed for dizziness. Yfwant01 hr memantine hydrochloride 28 mg extended release oral capsule (10 sources)E-yomzex-X-aspartate Receptor AntagonistStart: 87-19-8748foyd 1 capsule by mouth once daily in the morningStart: 63-29-4557Vxiebeevi Active MG PO April 08, 2023 12:00ammemantine (Namenda Titration Pack) 28 x 5 MG & 21 x 10 MG tablet pack Take by mouth See administration instructions. Follow package directions. Zkuyoy95 hr metFORMIN hydrochloride 500 mg extended release oral tablet (10 sources)BiguanideStart: 72-99-4812ddfb 1 tablet by mouth twice dailyStart: 59-05-5293Afcaboclt Active MG PO April 08, 2023 12:00amtake 1 tablet by mouth at mealtime, then take 1 tablet by mouth every twenty-four hoursmetFORMIN, OSM, (Fortamet) 500 MG 24 hr tablet Take 500 mg by mouth in the evening. Take with meals. Do not crush, chew, or split. Activemetoprolol tartrate 100 mg oral tablet (4 sources)beta-Adrenergic BlockerStart: 51-83-9323olzo 1 tablet by mouth twice dailymetoprolol tartrate (LOPRESSOR) 100 MG tablet Take 1 tablet by mouth 2 times daily 60 tablet 5 10/15/2019 ActiveStart: 12-97-9101kmkmdajssz tartrate (LOPRESSOR) tablet 100 mgStart: 10-09-2019 End: 81-32-5837fwgj 50 mg by mouth twice daily50 mg, Oral, 2 TIMES DAILY, First dose on 10/09/19 at 1245 End: 43-06-2403xuol 2 tablets by mouth twice dailymetoprolol tartrate [...] disintegrating oral tablet (3 sources)Serotonin-3 Receptor AntagonistStart: 81-28-6561bzsi 1 tablet by mouth every six hours as needed for nausea and vomitingStart: 10-09-2019 End: 40-76-2462qxlpzunepny (ZOFRAN) injection 4 mgStart: 10-09-2019 End: 72-35-6273ucwsdihsskq (ZOFRAN) 4 MG/2ML injectionondansetron (ZOFRAN-ODT) disintegrating tablet 4 mg (1 source)Start: 96-83-9794syfdwmfvjtz (ZOFRAN-ODT) disintegrating tablet 4 mg polyethylene glycol 3350 96171 mg powder for oral solution (3 sources)Osmotic LaxativeStart: 10-09-2019 End: 21-88-2279cufy 17 g by mouth once dailypolyethylene glycol (GLYCOLAX) 17 g packet Take 17 g by mouth daily 527 g 5 10/16/2019 11/15/2019 ActivePotassium (6 sources)Potassium (POTASSIMIN PO) Take by mouth. ActivePotassium Chloride (2 sources)Start: 90-10-6273dnvbtnjpj chloride (KLOR-CON M) extended release tablet 40 mEqStart: 33-97-9678yeon 10 mL intravenous route every hour as [...] sodium chloride 9 mg/ml injection (4 sources)Start: 87-75-1151nsxizq chloride flush 0.9 % injection 10 mLStart: 10-11-2019 End: 10-88-6641cmqump chloride flush 0.9 % injection 10 mLStart: 82-11-354016 mL, Intravenous, EVERY 12 HOURS SCHEDULED (2 times per day), First dose on 10/09/19 at 2100Start: 74-20-7953fckc 10 mL intravenous route once as idjclg54 mL, Intravenous, PRN, Line Care, After every IV line use, Starting 10/09/19 at 1227spironolactone 100 mg oral tablet (4 sources)Aldosterone AntagonistStart: 72-19-0813oszk 1 tablet by mouth once dailyspironolactone (ALDACTONE) 100 MG tablet Take 1 tablet by mouth daily 30 tablet 3 10/16/2019 ActiveStart: 10-09-2019 End: 59-45-3680nufyjksutfayoi (ALDACTONE) tablet 50 mgtiotropium 0.018 mg inhalation powder (5 sources)Anticholinergictake 1 capsule by inhalation once dailySpiriva HandiHaler 18 MCG inhalation capsule inhale 1 capsule by inhalation route every day Inhalation Activetriamcinolone acetonide 1 mg/ml topical cream (5 sources)CorticosteroidStart: 20-60-8505zmjikrxytfode (Kenalog) 0.1 % cream Indications: Other atopic dermatitis Apply to affected areas, up to twice a day when flared, do not use one the face, groin, or underarms, 30 day supply 454 g 11 01/16/2024 ActiveVit C,J-Wl-Ofvnn-Lutein-Zeaxan (Preservision Areds-2) 250-90-40-1 mg capsule (2 sources)Start: 06-60-7353Jeqfi: 09-87-9636Gvz C,V-Od-Dutyh-Lutein-Zeaxan (Preservision Areds-2) 250-90-40-1 mg capsule Active 1 TAB PO Twice daily April 17, 2023 12:00am Completed/Discontinued Medications MedicationDrug Class(es)DatesSig (Normalized)Sig (Original)cloNIDine hydrochloride 0.1 mg oral tablet (2 sources)Central alpha-2 Adrenergic AgonistStart: 10-10-2019 End: 65-80-4954ejqAAGswr (CATAPRES) tablet 0.1 mgdiclofenac sodium 75 mg delayed release oral tablet (4 sources)Nonsteroidal Anti-inflammatory DrugStart: 04-08-2023 End: 38-57-0864Intvdgmzjr Sodium 75 mg tablet,delayed release (DR/EC) Discontinued 75 MG PO .prn April 08, 2023 12:00am April 24, 2023 9:33amDupilumab (4 sources)Start: 04-08-2023 End: 81-44-6480Oxalrrrbm (Dupixent Pen) 200 mg/1.14 mL pen injector Discontinued 200 MG SUBCUT EVERY 2 WEEKS April 08, 2023 12:00am April 17, 2023 12:56pmStart: 64-88-8564Cwpbvfkqm (Dupixent Pen) 200 mg/1.14 mL pen injector Active 200 MG SUBCUT EVERY 2 WEEKS April 08, 2023 12:00am2 ml fentaNYL 0.05 mg/ml injection (1 source)Opioid AgonistStart: 10-09-2019 End: 35-72-7905ebgoyMBC (SUBLIMAZE) injection 50 mcgfluconazole 200 mg oral tablet (1 source)Azole AntifungalStart: 10-16-2019 End: 32-88-7631guttvlluflx (DIFLUCAN) tablet 200 mggadoteridol (PROHANCE) injection 12 mL (1 source)Start: 10-15-2019 End: 73-09-8236idkrdmsngux (PROHANCE) injection 12 mLgadoteridol (PROHANCE) injection 13 mL (1 source)Start: 10-11-2019 End: 70-89-7070nvzlevguxsr (PROHANCE) injection 13 mL1 ml haloperidol 5 mg/ml injection (1 source)Typical AntipsychoticStart: 10-09-2019 End: 71-29-0569okhzcfhsbvy lactate (HALDOL) injection 5 mgStart: 10-09-2019 End: 48-78-5105egbgxaydhhy lactate (HALDOL) injection 5 mgIohexol (2 sources)Radiographic Contrast AgentStart: 10-10-2019 End: 69-97-1591vrlgxuy (OMNIPAQUE 350) solution 90 mLStart: 10-09-2019 End: 06-85-1053vwchfek (OMNIPAQUE 350) solution 75 mLirbesartan 300 mg oral tablet (1 source)Angiotensin 2 Receptor Dodie End: 26-87-8432swyn 1 tablet by mouth once dailyirbesartan (AVAPRO) 300 MG tablet Take 300 mg by mouth daily 0 10/09/2019 Discontinued (LIST CLEANUP) LORazepam 2 mg oral tablet (1 source)BenzodiazepineStart: 10-11-2019 End: 07-19-9057RJMtgwlat (ATIVAN) tablet 2 mg100 ml magnesium sulfate 10 mg/ml injection (1 source)Start: 10-10-2019 End: 27-14-2791pkiffgoxq sulfate 1 g in dextrose 5% 100 mL IVPB methylPREDNISolone 125 mg injection (1 source)CorticosteroidStart: 10-10-2019 End: 99-04-4688okmlafUVWLLVLgfkoa sodium (SOLU-MEDROL) injection 250 mg2 ml metoclopramide 5 mg/ml prefilled syringe (1 source)Dopamine-2 Receptor AntagonistStart: 10-10-2019 End: 32-69-7709yletgeefldpzsc (REGLAN) injection 10 mgniCARdipine (CARDENE) 25 mg in dextrose 5 % 250 mL infusion (1 source)Start: 10-09-2019 End: 34-51-3460bpSSGjsxvok (CARDENE) 25 mg in dextrose 5 % 250 mL infusion potassium bicarbonate 20 meq effervescent oral tablet (1 source)Start: 10-12-2019 End: 70-78-2201apdgudbyh bicarb-citric acid (EFFER-K) effervescent tablet 40 mEq valproate (DEPACON) 500 mg in dextrose 5 % 100 mL IVPB (1 source)Start: 10-13-2019 End: 78-60-1858kumkcjxxa (DEPACON) 500 mg in dextrose 5 % 100 mL IVPB Problems Active Problems Problem ClassificationProblemDateDocumented DateEpisodic/ChronicAllergic reactions (4 sources)Atopic dermatitis; Translations: [Other atopic dermatitis]01-16-2024 ChronicAortic; peripheral; and visceral artery aneurysms (3 sources)Abdominal aortic aneurysm without rupture; Translations: [Aneurysm of infrarenal abdominal aorta ]Onset: 329080-78-3777TmpwhtcInnaocl dysrhythmias (2 sources)Paroxysmal atrial fibrillation; Translations: [Paroxysmal atrial fibrillation]Onset: 34-22-0361WrldeovLywrucmwbo associated with dizziness or vertigo (6 sources)Dizziness and giddiness; Translations: [Vertigo]Onset: 06-27-2017 EpisodicCongestive heart failure; nonhypertensive (6 sources)Chronic diastolic (congestive) heart failure; Translations: [Acute combined systolic (congestive) and diastolic (congestive) heart failure]Onset: 02-91-7351JwdkncbPzrfsdoi atherosclerosis and other heart disease (2 sources)Atherosclerotic heart disease of [place] coronary artery without angina pectoris; Translations: [Atherosclerotic heart disease of [place] coronary artery without angina pectoris]Onset: 80-77-3729OegcwhuBvphhjvi mellitus without complication (6 sources)Diabetes mellitus; Translations: [Type 2 diabetes mellitus without complications]Onset: 590550-02-3652RuzvzueXxjnyjwuo of lipid metabolism (9 sources)Hyperlipidemia; Translations: [Hyperlipidemia, unspecified]Onset: 461130-93-7638LohlollIlhytlfcz hypertension (4 sources)Hypertensive disorder; Translations: [Essential (primary) hypertension]59-14-4394UaaekfpNmkto and electrolyte disorders (2 sources)Hypokalemia; Translations: [Hypokalemia]Onset: EpisodicHeadache; including migraine (2 sources)Headache; Translations: [Acute intractable headache]10-10-2019 EpisodicHypertension with complications and secondary hypertension (8 sources)Hypertensive urgency ; Translations: [Secondary hypertension]Onset: 295016-82-0548IpdzumlUnxrjz and vomiting (1 source)Nausea and vomiting; Translations: [Nausea and vomiting, intractability of vomiting not specified, unspecified vomiting type]Episodic Nutritional deficiencies (2 sources)Malnutrition (calorie); Translations: [Moderate malnutrition (HCC)] Onset: 624356-03-2569HzuumirDjvtv aftercare (2 sources)Taking high risk medication; Translations: [Other intermediate manager (current) drug therapy]54-54-4154VeadpbbyTohhw circulatory disease (2 sources)Celiac artery compression syndrome; Translations: [Celiac artery compression syndrome]Onset: 24-78-6378HmgqhlkPjhdn connective tissue disease (3 sources)Hand pain; Translations: [Pain in right hand]10-09-6272FpsmpxojOuclp connective tissue disease (8 sources)Triggering of digit; Translations: [Trigger finger, right middle finger]23-23-3763BpaufgqrOiroy connective tissue disease (3 sources)Trigger finger, right middle finger; Translations: [Trigger finger (acquired)]45-87-4400MuigrlafYevey connective tissue disease (3 sources)Trigger finger, right ring finger; Translations: [Trigger finger (acquired)]60-23-3093EifiyuztNmnsv connective tissue disease (1 source)Pain in right hand; Translations: [Pain in right hand]04-07-2023 EpisodicOther nervous system disorders (1 source)Pain in limb; Translations: [Other acute postprocedural pain] 86-29-3759FxamsddzQwuvxbtbam and visceral atherosclerosis (2 sources)Chronic vascular disorders of intestine; Translations: [Chronic vascular disorders of intestine]Onset: 51-24-8838OuwpkwaWzwtykeosy and visceral atherosclerosis (2 sources)Stenosis of right renal artery; Translations: [Right renal artery stenosis (HCC)]Onset: 498575-02-3134Urmzjfof codes; unclassified (1 source)Postprocedural state finding; Translations: [Other specified postprocedural states]34-30-7522RlbzrdubJlicsrmxxpk; intervertebral disc disorders; other back problems (1 source)Acute low back pain; Translations: [Acute low back pain, unspecified back pain laterality, unspecified whether sciatica present]EpisodicSyncope (4 sources)Syncope and collapse; Translations: [SYNCOPE AND COLLAPSE]Onset: 26-00-7470NfwsuawtRbqrfybbbraf (1 source)Hypertensive urgency; Translations: [Hypertensive urgency]Onset: 21-73-9800Ivyrxnoncinv (3 sources)COUGH, UNSPECIFIED; Translations: [COUGH, UNSPECIFIED]Onset: 94-73-9132Udmtmihbsopa (1 source)CONTACT W/AND (SUSP) EXPOS COVID-19; Translations: [CONTACT W/AND (SUSP) EXPOS COVID-19]Onset: 33-44-5322Gzmjzkmebgnk (1 source)Infrarenal abdominal aortic aneurysm, without rupture; Translations: [Infrarenal abdominal aortic aneurysm, without rupture]Onset: 01-27-2024 Unclassified (1 source)Other ventricular tachycardia; Translations: [Other ventricular tachycardia]Onset: 98-87-3958Nbjoaqcwvnvh (1 source)Ventricular tachycardia, unspecified; Translations: [Ventricular tachycardia, unspecified]Onset: 41-43-2228Gbsaiulpblhb (1 source)Abdominal aortic aneurysm, without rupture, unspecified; Translations: [Abdominal aortic aneurysm, without rupture, unspecified]Onset: 01-27-2024 Past or Other Problems Problem ClassificationProblemDateDocumented DateEpisodic/ChronicAcute and unspecified renal failure (2 sources)Acute kidney failure, unspecified; Translations: [Acute kidney failure, unspecified]Onset: 12-16-8232UwpmvoimYoqsfek tract disease (2 sources)Calculus of gallbladder without cholecystitis without obstruction; Translations: [Calculus of gallbladder without cholecystitis without obstruction]Onset: 74-03-1590GvesheniWsfwkym dysrhythmias (2 sources)Palpitations; Translations: [Palpitations]Onset: EpisodicGenitourinary symptoms and ill-defined conditions (2 sources)Hesitancy of micturition; Translations: [Hesitancy of micturition] Onset: 40-18-2012GziegwocTtqdzwz and fatigue (2 sources)Weakness; Translations: [Weakness]Onset: 54-48-0711KuppsueeIifuu aftercare (2 sources)Other intermediate manager (current) drug therapy; Translations: [Other intermediate manager (current) drug therapy]Onset: 15-73-4982NetmtdooVcdks gastrointestinal disorders (2 sources)Constipation, unspecified; Translations: [Constipation, unspecified] Onset: 62-11-3665ImgtvyoaYrxcr lower respiratory disease (2 sources)Other forms of dyspnea; Translations: [Other forms of dyspnea]Onset: 72-84-3462SezlenwdZqmtf nervous system disorders (2 sources)Other acute postprocedural pain; Translations: [Other acute postprocedural pain]Onset: 77-49-9405YgpkmustRcooytspgdwo (1 source)COUGH, UNSPECIFIED; Translations: [COUGH, UNSPECIFIED]Onset: 85-80-4402Uvapurnpwsta (1 source)Infrarenal abdominal aortic aneurysm, without rupture; Translations: [Infrarenal abdominal aortic aneurysm, without rupture]Onset: 07-22-2024 Unclassified (1 source)Other ventricular tachycardia; Translations: [Other ventricular tachycardia]Onset: 53-16-3482Xqohybgfoeve (1 source)Ventricular tachycardia, unspecified; Translations: [Ventricular tachycardia, unspecified]Onset: 28-66-5657Dpiwjukltwdk (1 source)Abdominal aortic aneurysm, without rupture, unspecified; Translations: [Abdominal aortic aneurysm, without rupture, unspecified]Onset: 01-27-2024 Results Test NameValueInterpretationReference RangeFacilityUrine Cultureon 12-29-2024 Bacteria identified Cx Nom (U)<9,000 colonies/ml mixed bacterial skin contaminants 2 Days PERFORMED BY: [facility] [address] [place] [address] PATHOLOGIST COPY MACHINE OPERATOR ISAI DASH M.D.NormalThe [facility] Physician GroupComment on above: Performed By: #### CUU #### [facility] [address] [place] 2[address]70 SAW99eg 20-04-558786TmqqrmSmkrcpykgv of [facility] 36Spoke with patient and she was currently in the car and not able to check her BP and HR. Asked her to call me back later today when she gets home and checks those. Patient agreed to do so.NormalUnDunlap Memorial Hospital36on 06-91-105336JsenkpTzqguswcwy of [facility] Wainyx25dq 08-07-545711Gvpdqm [facility] Charles HospitalBASIC METABOLIC PANELon 98-92-8537Khfzf gap [Moles/Vol]11 mmol/LNormal7-20UnDunlap Memorial HospitalComment on above:Performed By: #### [id number] ####[facility] (BEAKER)[address] [place], [place] [address]Fzmlrnj [Mass/Vol]8.6 mg/dLNormal8.6-10.3UnDunlap Memorial HospitalComment on above:Performed By: #### [id number] ####[facility] ([facility])[address] [place] [address]Raujpjey [Moles/Vol]107 mmol/LNormal 98-107UnDunlap Memorial HospitalComment on above:Performed By: #### [id number] ####[facility] ([facility])[address] [place] [address]BX2 [Moles/Vol]26 mmol/IJhcthd06-44NutiuenuwdDunlap Memorial HospitalComment on above:Performed By: #### [id number] ####[facility] ([facility])[address] [place] [address]Fbegklpfnw [Mass/Vol]1.28 mg/dLHigh0.60-1.20UnDunlap Memorial HospitalComment on above:Performed By: #### [id number] ####[facility] ([facility])[address] [place], [place] [address]OFAPDCGTCC FILTRATION RATE ML/MIN/1.73 SQ M.TGIXWEOJV07.1 mL/min/1.73m*2Low>60.0UnDunlap Memorial HospitalComment on above:Result Comment: The [facility]???s estimated glomerular filtration rate (eGFR) will [...] By: #### LAB15 ####[facility] ([facility])[address] [place] [address]Dfweifv [Mass/Vol]81 mg/mOZcqvrd55-226DntnfqehwrDunlap Memorial HospitalComment on above:Performed By: #### LAB15 ####[facility] ([facility])[address] [place] [address]Yunpafmer [Moles/Vol]4.5 mmol/LNormal3.5-5.1UnDunlap Memorial HospitalComment on above:Performed By: #### [id number] ####[facility] ([facility])[address] [place] [address]Ioebrv [Moles/Vol]139 mmol/L Whgfka347-688RvteheiveqDunlap Memorial HospitalComment on above:Performed By: #### [id number] ####[facility] ([facility])[address] [place] [address]Oleh nitrogen [Mass/Vol]26 mg/dLHigh7-25UnDunlap Memorial HospitalComment on above:Performed By: #### LAB15 ####[facility] ([facility])[address] [place], [place] [address]YSHV NITROGEN/CREATININE (MASS RATIO) IN SER/PLAS20.3Normal [facility] Charles HospitalComment on above:Performed By: #### [id number] ####[facility] ([facility])[address] [place] [address]PPVHFUY, IONIZED on 60-39-1338LHZGZWY IONIZED (MMOL/L) IN BLOOD1.00 mmol/LLow1.15-1.33UnDunlap Memorial HospitalComment on above:Performed By: #### [id number] ####[facility] RESPIRATORY [id number] [place] [address] USACBCon 08-27-2024 Erythrocyte distribution width (RBC) [Ratio]17.6 %High11.5-15.0UnDunlap Memorial HospitalComment on above:Performed By: #### [id number] ####[facility] ([facility])[address] [place], [place] [address]DIMZHRWGTZB MEAN CORPUSCULAR HEMOGLOBIN CONCENTRATION (G/DL) BY DRKPCMMPF10.6 g/dLLow32.0-35.[address] Charles HospitalComment on above:Performed By: #### [id number] ####[facility] (BEAKER)[address] [place] [address]Mlbrotkece (Bld) [Volume fraction]40.9 %Ktrqhb57.0-45.0UnDunlap Memorial Hospital Comment on above:Performed By: #### [id number] ####[facility] (AKER)[address] [address]Cszbxgajki (Bld) [Mass/Vol]12.1 g/tKUetquw40.0-15.[address] Charles HospitalComment on above:Performed By: #### [id number] ####[facility] ([facility])[address] [place] [address]GHR (RBC) [Entitic mass]29.7 nqGkkuvo37.0-33.0UnDunlap Memorial HospitalComment on above:Performed By: #### [id number] ####[facility] ([facility])[address] [place] [address]AWQ (RBC) [Entitic vol]100.2 lLUcue44.0-98.0UnDunlap Memorial HospitalComment on above:Performed By: #### [id number] ####[facility] ([facility])[address] [place] [address]RFLOKGTNG (10*3/UL) IN BLOOD AUTOMATED WTOLS358 10*3/nRNrxrni904-667HploornkbrDunlap Memorial Hospital Comment on above:Performed By: #### [id number] ####[facility] ([facility])[address] [place] [address]SPT (Bld) [#/Vol]4.08 10*6/uLNormal3.80-5.[address] Charles HospitalComment on above:Performed By: #### [id number] ####[facility] ([facility])[address] [place] [address]HQZ (Bld) [#/Vol]7.20 10*3/uLNormal4.00-10.60UnDunlap Memorial HospitalComment on above:Performed By: #### [id number] ####[facility] (BEAKER)[address] [place] [address]DHYPKMKkd 91-60-4619CCYFAUZIwrccwBmdjlssxgh [facility] HospitalDSon 15-98-8475LBGmhiaoCusymwbtlz [facility] HospitalMAGNESIUMon 41-60-3836Tmqjixfsx [Mass/Vol]3.0 mg/dLHigh1.9-2.7UnDunlap Memorial HospitalComment on above:Performed By: #### [id number] ####[facility] (BEAKER)[address] [place] [address]Qccvyq Onlyon 21-58-3558Mttsnh Only [id number] Shayy Maynard 1945 F Date Provider Department Center 08/27/2024 87503-XVPMLIBIA KEATING HVCVASENDUsman [place] Heart[facility] No family history on fileNormalUniversSelect Medical Specialty Hospital - YoungstownPHOSPHORUSon 47-85-1116Qteyvcmpn [Mass/Vol]3.9 mg/dLNormal2.5-5.0UnDunlap Memorial HospitalComment on above:Performed By: #### [id number] ####[facility] (BEAKER)[address] [place] [address]19ly 60-01-520317CgzyjsDisdeyydln of [facility] Medical CenterANESon 41-46-8927RLFUVzslsiPnrhbdwrrt [facility] HospitalANESNormalUniversity [facility]itan HospitalBASIC METABOLIC PANELon 28-89-0086Ocmgk gap [Moles/Vol]12 mmol/LNormal7-20UnDunlap Memorial HospitalComment on above:Performed By: #### [id number] ####[facility] (BEAKER)[address] [place] [address]Mruvset [Mass/Vol]8.9 mg/dLNormal 8.6-10.3UnDunlap Memorial HospitalComment on above:Performed By: #### LAB15 ####[facility] ([facility]ER)[address] [place] [address]Clvssgyg [Moles/Vol]106 mmol/LBshkbq74-093YuclzuhnjlDunlap Memorial HospitalComment on above:Performed By: #### LAB15 ####[facility] ([facility])[address] [place] [address]YB8 [Moles/Vol]28 mmol/RHmcppa96-13HfequgtvedDunlap Memorial HospitalComment on above:Performed By: #### LAB15 ####[facility] ([facility])[address] [place] [address]Czwvqsosvc [Mass/Vol]1.27 mg/dLHigh 0.60-1.20UnDunlap Memorial HospitalComment on above:Performed By: #### LAB15 ####[facility] ([facility])[address] [place] [address]CSUMRNTYBN FILTRATION RATE ML/MIN/1.73 SQ M.CBXHSWXXV59.5 mL/min/1.73m*2Low>60.0UnDunlap Memorial HospitalComment on above:Result Comment: [facility]???s estimated glomerular filtration rate (eGFR) will [...] By: #### LAB15 ####[facility] ([facility])[address] [place] [address]Mssyest [Mass/Vol]101 mg/vAZasl28-241JwnaqebajkDunlap Memorial HospitalComment on above:Performed By: #### LAB15 ####[facility] ([facility])[address] [place] [address]Rsfzhnbtf [Moles/Vol]4.5 mmol/LNormal 3.5-5.1UnDunlap Memorial HospitalComment on above:Performed By: #### LAB15 ####[facility] (BEAKER)[address] [place] [address]Tcwjab [Moles/Vol]141 mmol/IKyurhn635-191JszqhncwvpDunlap Memorial HospitalComment on above:Performed By: #### LAB15 ####[facility] [place] [address]Sfpe nitrogen [Mass/Vol]25 mg/dLNormal7-25UnDunlap Memorial HospitalComment on above:Performed By: #### LAB15 ####[facility] ([facility])[address] [place] [address]LFKK NITROGEN/CREATININE (MASS RATIO) IN SER/PLAS19.7NormalUniversSelect Medical Specialty Hospital - YoungstownComment on above: Performed By: #### [id number] ####[facility] ([facility])[address] [place] [address]RAGzi 05-20-8702Hwmwwslpxpr distribution width (RBC) [Ratio]17.0 %High 11.5-15.0UnDunlap Memorial HospitalComment on above:Performed By: #### [id number] ####[facility] ([facility])[address] [place] [address] ERYTHROCYTE MEAN CORPUSCULAR HEMOGLOBIN CONCENTRATION (G/DL) BY FCGBOCRKG46.6 g/dLLow32.0-35.0UnDunlap Memorial HospitalComment on above:Performed By: #### [id number] ####[facility] ([facility])[address] [place] [address] Hematocrit (Bld) [Volume fraction]39.6 %Ftrqqx39.0-45.0UnDunlap Memorial HospitalComment on above:Performed By: #### [id number] ####[facility] ([facility])[address] [place], [place] [address]Qkspbocvbe (Bld) [Mass/Vol]12.5 g/dL Qpyjqd21.0-15.0UnDunlap Memorial HospitalComment on above:Performed By: #### [id number] ####[facility] (BEAKER)[address] [place], [place] [address]KUZ (RBC) [Entitic mass]29.5 rfIhqioq54.0-33.0UnDunlap Memorial Hospital Comment on above:Performed By: #### [id number] ####[facility] ([facility])[address] [place] [address]BMK (RBC) [Entitic vol]93.4 kBDmiude28.0-98.[address] [facility] HospitalComment on above:Performed By: #### [id number] ####[facility] ([facility])[address] [place] [address]ABEWDAGWJ (10*3/UL) IN BLOOD AUTOMATED MVPMQ310 10*3/fLSucktu024-290YlnqpqklfqDunlap Memorial HospitalComment on above:Performed By: #### [id number] ####[facility] ([facility])[address] [place] [address]UYW (Bld) [#/Vol]4.24 10*6/uLNormal 3.80-5.00UnDunlap Memorial HospitalComment on above:Performed By: #### [id number] ####[facility] ([facility])[address] [place] [address]KAD (Bld) [#/Vol]10.20 10*3/uLNormal4.00-10.60UnDunlap Memorial HospitalComment on above:Performed By: #### [id number] ####[facility] ([facility])[address] [place] [address]YWKVSCZzd 03-87-0096RNSKCDABrwzfkYghscaakjn of [facility] CenterCTA ABDOMEN PELVIS W IV CONTRASTon 18-82-9187XLL ABDOMEN PELVIS W IV CONTRASTNormalUniversSelect Medical Specialty Hospital - YoungstownCTA CHEST W IV CONTRASTon 19-38-0388FVG CHEST W IV CONTRASTNormalUniversSelect Medical Specialty Hospital - YoungstownHIGH SENSITIVITY TROPONIN Ion 21-58-6344LM TROPONIN I (NG/L)18 ng/LHigh<15UnDunlap Memorial HospitalComment on above:Performed By: #### [id number] ####[facility] ([facility])[address] [place] [address]WVyv 57-94-4971QJDsmujl [facility] Charles HospitalLACTIC ACID WITH 4 HOUR REFLEXon 08-26-2024 LACTATE (MMOL/L) IN SER/PLAS0.8 mmol/LNormal0.5-2.2UnDunlap Memorial HospitalComment on above:Performed By: #### [id number] ####[facility] ([facility])[address] [place] [address]EDPTNJFUJsv 45-19-4336Pzxhxnitw [Mass/Vol]2.0 mg/dLNormal1.9-2.7UnDunlap Memorial HospitalComment on above:Performed By: #### [id number] ####[facility] ([facility])[address] [place] [address]HKYJDVRPub 11-84-0821XJCQIONBLxpmwx was called to Milagro MELGAR. Questions answered. No further issues or concerns. Door Paneler also called and updated the Deroy on pt room number the facer operator nurse and current status of the pt. He verbalized understanding [facility] HospitalNURSNOTEPREOPERATIVE DOPPLERS BOTH PT AND DP MARKED AND DOPPLERABLE IN BILATERAL FEET.[facility] HospitalNURSNOTEPt was given call light and family brought to bedside. RN called anesthesia about high bp will be around soon.[facility] NURSNOTEPt stated her knew the meds she took, rn spoke to who was unsure about when the last time she took some of her meds was. Knows she didn't take any today and hasn't had the blood thinner in 2 days.[facility] HospitalNURSNOTEPCT took pt to restroom then wheeled her to bay 5. Pt was instructed to remove all belongings and put gown on.NormalMercy Health St. Charles HospitalOPNOTEon 96-10-3627HFDTYFKnemswLvixpkszkd [facility]itan HospitalPOCT GLUCOSE METER UNSOLICITED RESULTSon 49-82-5437Sjttirk [Mass/Vol]96 mg/pBEchzqh66-124FyjkdjidnaDunlap Memorial HospitalComment on above:Order Comment: Waived Testing in the ED is performed under the ED CLIA certificate #[id number].Result Comment: laurita Performed By: #### [id number] ####[facility] (SHERON)[address] [place], [place] [address]FTFTNUH-EKTps 03-75-8079SYK IN PPP BY COAGULATION ASSAY1.01 Normal0.90-1.10UnDunlap Memorial HospitalComment on above:Result Comment: ACC[facility] RECOMMENDED INR FOR WARFARIN THERAPY CONDITION INRPROPHYLAXIS OF VENOUS THROMBOSIS 2-3(HIGH-RISK SURGERY)TREATMENT OF VENOUS THROMBOSIS 2-3TREATMENT OF PULMONARY EMBOLISM 2-3PREVENTION OF SYSTEMIC EMBOLISM: 2-3 ACUTE MYOCARDIAL INFARCTION TISSUE HEART VALVES VALVULAR HEART DISEASE ATRIAL FIBRILLATION RECURRENT SYSTEMIC EMBOLISMMECHANICAL HEART VALVE 2.5-3.5 FROM: ORAL ANTICOAGULANTS. MECHANISM OF ACTION, CLINICAL EFFECTIVENESS, AND OPTIMAL THERAPE UTIC RANGE. CHEST 1995;108:231S-246S.Performed By: #### [id number] ####[facility] ([facility]ER[facility])[address] [place], [place] [address]XSBFBHZJSFT TIME (PT) IN PPP BY COAGULATION ASSAY13.3 XmdukhjPnykvy67.3-14.8UnDunlap Memorial HospitalComment on above:Performed By: #### [id number] ####[facility] ([facility])[address] [place], [place] [address]YGAH AND SCREENon 96-42-0026XF SCREEN NegativeNormalUniversity [facility] Samaritan HospitalComment on above:Performed By: #### [id number] ####[facility] BLOOD [facility],ABO group Nom (Bld)ONSelect Medical Specialty Hospital - ColumbusComment on above:Performed By: #### [id number] ####[facility],RH TYPE IN BLOODPositiveNoalUniOhio State University Wexner Medical CenterComment on above: Performed By: #### [id number] ####[facility],Orders Onlyon 87-58-0170Lmoeca [id number] Alex,Shayy A 1945 F Date Provider Department Center 08/23/2024 20300-MAVYMBRIANNA GARCIA [facility] [place] [facility] No family history on fileNormalUniOhio State University Wexner Medical CenterOrders Onlyon 04-96-3029Kiovji [id number] Earnest Maynarda A 1945 F Date Provider Department Center 08/18/2024 FORREST BOONE HVCVASENDO [place] Heart[facility] No family history on fileNormalUniOhio State University Wexner Medical CenterUrine Culture on 96-25-3713Zhkjuycg identified Cx Nom (U)<9,000 colonies/ml mixed bacterial skin contaminants 2 Days PERFORMED BY: [place] [address] PATHOLOGIST COPY MACHINE OPERATOR ISAI DASH M.D.NormalThe [facility] Physician GroupComment on above: Performed By: #### CUU #### [facility] [address] [place] [address] PCO54dg 24-94-633712Jzjwzb and left a message for patient to call the office to [facility] HospitalniOhio State University Wexner Medical Center Documentationon [id number] Earnest Maynarda A 1945 F Date Provider Department Center 08/05/2024 [id number]-SZEDFXTJAIME GARCIA HVCVASENDGENERAL [facility] Heart[facility] No family history on [facility] HospitalFollow-Upon 82-85-3328Pkpgnj-UpNormalUniversgood samaritan hospital of Mayhill HospitalOrders Onlyon 66-91-1666Zhkcrm [id number] Shayy Maynard 1945 F Date Provider Department Center 08/02/2024 928-ALKA, VIKTOR COLEMAN [facility] No family history on fileNormalUniversity of Mayhill HospitalOrders Onlyon 42-44-0000Dbdqnt [id number] Shayy Maynard A 1945 F Date Provider Department Center 07/27/2024 X0408-ALHSVFDB, HISTORICAL COLEMAN [facility] No family history on fileNormalUniversgood samaritan hospital of Mayhill HospitalALTon 52-81-9320UXL [Catalytic activity/Vol]10 U/LNormal7-52UnDunlap Memorial HospitalComment on above:Performed By: #### [id number] ####[facility] ([facility])[address] [place], [place] [address]IQIqv 21-66-3358NSK [Catalytic activity/Vol]14 U/VFxndzh48-65NpicahrqpxDunlap Memorial HospitalComment on above:Performed By: #### [id number] ####[facility] ([facility])[address] [place], [place] [address]SUAAHEWQFQ, SERUMon 52-27-3611Cezlfjpmwy [Mass/Vol]1.15 mg/dL Normal0.60-1.20UnDunlap Memorial HospitalComment on above:Performed By: #### [id number] ####[facility] ([facility])[address] [place] [address] GLOMERULAR FILTRATION RATE ML/MIN/1.73 SQ M.LHPNDJAVO33.9 mL/min/1.73m*2Low>60.[address] Charles HospitalComment on above:Result Comment: The [facility]???s estimated glomerular filtration rate (eG FR) [...] anyone group of individuals. Performed By: #### [id number] ####[facility] ([facility])[address] [place], [place] [address]BCF ABDOMEN PELVIS W IV CONTRASTon 61-26-6999XZN ABDOMEN PELVIS W IV CONTRASTInvalid Interpretation CodeUnDunlap Memorial HospitalLIPID PANELon 62-99-7809CIAE/HDL4.8 mg/dLNormalUniversSelect Medical Specialty Hospital - YoungstownComment on above:Performed By: #### [id number] ####[facility] ([facility])[address] [place], [place] [address]Kgiaquooaym [Mass/Vol]217 mg/dLHigh 120-200UnDunlap Memorial HospitalComment on above:Performed By: #### [id number] ####[facility] ([facility])[address] [place], [place] [address]Ulwppwdgy [Mass/Vol]170 mg/dLHigh<150UnDunlap Memorial HospitalComment on above: Result Comment: TRIGLYCERIDE REFERENCE RANGE:20 YEARS AND OLDER CARDIOVASCULAR RISKLESS THAN 150 mg/dL LOW CMZT200 TO 199 mg/dL BORDERLINE DFHN732 mg/dL AND GREATER HIGH RISKPerformed By: #### [id number] ####[facility] ([facility])[address] [place], [place] [address]Affgjephl [Mass/Vol]138 mg/dLNormal0-160UnDunlap Memorial HospitalComment on above:Performed By: #### [id number] ####[facility] ([facility])[address] [place], [place] [address]Atyrcptgo [Mass/Vol]45 mg/vDUhjqrd26-78RvybcyltbrDunlap Memorial HospitalComment on above:Performed By: #### [id number] ####[facility] ([facility])[address] [place] [address] NON HDL CHOL. (LDL+VLDL)172NormalUniversSelect Medical Specialty Hospital - YoungstownComment on above:Performed By: #### [id number] ####[facility] ([facility])[address] [place] [address]AIYRM VLDL-C34 mg/dLNormal0-40UnDunlap Memorial HospitalComment on above:Performed By: #### [id number] ####[facility] ([facility])[address] [place] [address]Yyiwl [id number] Shayy Maynard 1945 F Date Provider Department [place] 07/22/2024 2245-[facility] OPD LAB RESOURCE [facility] OPD [facility] C No family history on fileNormalUniversSelect Medical Specialty Hospital - Youngstown36on 01-61-012650Cvab message for pt to return call to schedule [address] Whitten.NormalUnDunlap Memorial Hospital37on [id number]-Rtpkiw call radiology at [phone] to schedule testing (CTA abdomen and pelvis) to be done before your next appointmentNormalUniversSelect Medical Specialty Hospital - YoungstownFollow-Upon 13-08-1408Cyrcgt-UpNormalUniversSelect Medical Specialty Hospital - YoungstownBASIC METABOLIC PANELon 62-52-1977Umlwm gap [Moles/Vol]14 mmol/LNormal7-[address] [facility] HospitalComment on above:Performed By: #### [id number] ####[facility] ([facility])[address] [place] [address]Ubbqfwb [Mass/Vol]9.1 mg/dLNormal8.6-10.3UnDunlap Memorial HospitalComment on above:Performed By: #### LAB15 ####[facility] ([facility])[address] [place] [address]Sqeozmhg [Moles/Vol]105 mmol/EKgwisd41-557YqvwbtemicDunlap Memorial HospitalComment on above:Performed By: #### LAB15 ####[facility] ([facility])[address] [place] [address]YC1 [Moles/Vol]27 mmol/LNormal 21-31UnDunlap Memorial HospitalComment on above:Performed By: #### LAB15 ####[facility] ([facility])[address] [place] [address]Kflcmyerej [Mass/Vol]1.32 mg/dLHigh0.60-1.20UnDunlap Memorial HospitalComment on above:Performed By: #### LAB15 ####[facility] ([facility])[address] [place] [address]QELMZYGVYA FILTRATION RATE ML/MIN/1.73 SQ M.BOXUCJEIB97.8 mL/min/1.73m*2Low>60.0UnDunlap Memorial HospitalComment on above:Result Comment: [facility]???s estimated glomerular filtration rate (eGFR) will [...] By: #### LAB15 ####[facility] ([facility])[address] [place] [address]Iafyqqo [Mass/Vol]94 mg/tAGreatu27-533MfdfavfjkcDunlap Memorial HospitalComment on above:Performed By: #### LAB15 ####[facility] ([facility])[address] [place] [address]Hdnwevirs [Moles/Vol]3.8 mmol/LNormal3.5-5.1UnDunlap Memorial HospitalComment on above:Performed By: #### LAB15 ####[facility] ([facility])[address] [place] [address] Sodium [Moles/Vol]142 mmol/GRwypnr715-063GglllaymyiDunlap Memorial Hospital Comment on above:Performed By: #### [id number] ####[facility] ([facility])[address] [place], [place] [address]Vizc nitrogen [Mass/Vol]28 mg/dLHigh7-25UnDunlap Memorial HospitalComment on above:Performed By: #### [id number] ####[facility] ([facility])[address] [place] [address]ELXU NITROGEN/CREATININE (MASS RATIO) IN SER/PLAS21.2NormalUnDunlap Memorial HospitalComment on above:Performed By: #### [id number] ####[facility] ([facility])[address] [place] [address]CSJpw [id number] distribution width (RBC) [Ratio] 16.2 %High11.5-15.0UnDunlap Memorial HospitalComment on above:Performed By: #### [id number] ####[facility] [facility] ([facility])[address] [place], [place] [address]JHITKJQHDLI MEAN CORPUSCULAR HEMOGLOBIN CONCENTRATION (G/DL) BY AUTOMATED 30.9 g/dLLow32.0-35.0UnDunlap Memorial HospitalComment on above: Performed By: #### [id number] ####[facility] ([facility])[address] [place], [place] [address]Erubuoqywi (Bld) [Volume fraction]34.3 %Low36.0-45.[address] Charles HospitalComment on above:Performed By: #### [id number] ####[facility] ([facility])[address] [place], [place] [address]Thlmfxsols (Bld) [Mass/Vol]10.6 g/dLLow12.0-15.0UnDunlap Memorial HospitalComment on above:Performed By: #### [id number] ####[facility] ([facility])[address] [place], [place] [address]GVE (RBC) [Entitic mass]28.4 jnCohmdk83.0-33.0UnDunlap Memorial HospitalComment on above:Performed By: #### [id number] ####[facility] ([facility])[address] [place], [place] [address]AMX (RBC) [Entitic vol] 92.0 fZOdthnf42.0-98.0UnDunlap Memorial HospitalComment on above: Performed By: #### [id number] ####[facility] ([facility])[address] [place] [address]QUKCUOEEE (10*3/UL) IN BLOOD AUTOMATED [id number] 10*3/uLNormal 150-400UnDunlap Memorial HospitalComment on above:Performed By: #### [id number] ####[facility] ([facility])[address] [place] [address]KFF (Bld) [#/Vol]3.73 10*6/uLLow3.80-5.00UnDunlap Memorial HospitalComment on above:Performed By: #### [id number] ####[facility] ([facility])[address] [place] [address]CFE (Bld) [#/Vol]8.95 10*3/uLNormal4.00-10.60UnDunlap Memorial HospitalComment on above:Performed By: #### [id number] ####[facility] ([facility])[address] [place] [address]RRFXMSSDUO, URINE, RANDOM on 92-93-8805Uvvbijqqfs (U) [Mass/Vol]115.0 mg/pKGjxfmh74-712RmmmupbranDunlap Memorial HospitalComment on above:Performed By: #### [id number] ####[facility] ([facility])[address] [place] [address]Keiayhufu By: #### [id number] ####[facility] ([facility])[address] [place] [address]Zwcxuk-Kevf 33-89-1592Ytlkkc-UpNormalUniversity [facility]aritan HospitalLabon 81-02-7665Dbt [id number] Shayy Maynard 1945 F Date Provider Department Center 05/11/20242241-[facility] RESOURCE [facility] Comprehensiv No family history on fileNormalUniversSelect Medical Specialty Hospital - YoungstownMICROALBUMIN, URINE, RANDOMon 97-42-1319Ysudtqu DL <= 20 mg/L (U) [Mass/Vol]1.8 mg/dLNormal [facility]. Charles HospitalComment on above:Performed By: #### [id number] ####[facility] ([facility])[address] [place] [address] MICROALBUMIN/CREATININE (MG/G) IN URINE15.7 mg/g CreatNormal0.0-30.0UnDunlap Memorial HospitalComment on above:Performed By: #### [id number] ####[facility] ([facility])[address] [place], [place] [address]KNDRPDY, URINE, RANDOMon 06-91-5614Ztnyher (U) [Mass/Vol]30.2 mg/dLNoalUniOhio State University Wexner Medical CenterComment on above:Result Comment: There are no established reference values for random urine specimens.Performed By: #### [id number] ####[facility] ([facility])[address] [place], [place] [address]IISKFFFSKEis 84-45-0408HKAKKKSQP, TOTAL PRESENCE IN URINENegativeNounc health chathamNegativeUnDunlap Memorial Hospital Comment on above:Performed By: #### [id number] ####[facility] ([facility])[address] [place], [place] [address]Fsiasku (U)ClearNormalClearUnDunlap Memorial HospitalComment on above:Performed By: #### [id number] ####[facility] ([facility])[address] [place], [place] [address]Ccehc (U)Light-YellowNormalColorless, Yellow, Light-YellowUnDunlap Memorial HospitalComment on above: Performed By: #### [id number] ####[facility] ([facility])[address] [place], [place] [address]AQFJMAB (MG/DL) IN URINENormalNormsdNormalUniOhio State University Wexner Medical CenterComment on above:Performed By: #### [id number] ####[facility] ([facility])[address] [place], [place] [address]SOUPWUXCVC PRESENCE IN URINENegativeNormalNegativeMercy Health St. Charles HospitalComment on above: Performed By: #### [id number] ####[facility] ([facility])[address] [place], [place] [address]Ngkvxms Ql (U)NegativeNormalNegativeUnDunlap Memorial HospitalComment on above:Performed By: #### [id number] ####[facility] ([facility])[address] [place], [place] [address]VEJHJHEOW ESTERASE PRESENCE IN URINE BY TEST STRIPSmallAbnormalNegativeUnDunlap Memorial HospitalComment on above:Performed By: #### [id number] ####[facility] ([facility])[address] [place], [place] [address]QLESFEJ PRESENCE IN URINENegativeNormalNegativeUnDunlap Memorial HospitalComment on above:Performed By: #### [id number] ####[facility] ([facility])[address] [place], [place] [address]lU (U)5.5 [pH]Normal 5.0-8.0UnDunlap Memorial HospitalComment on above:Performed By: #### [id number] ####[facility] ([facility])[address] [place], [place] [address]Rnlnfha (U) [Mass/Vol]NegativeNormalNegativeUnDunlap Memorial HospitalComment on above:Performed By: #### [id number] ####[facility] ([facility])[address] [place], [place] [address]Liulxmor gravity (U) [Rel density]1.144Tzfudw0.010-1.[address] Charles HospitalComment on above:Performed By: #### [id number] ####[facility] ([facility])[address] [place], [place] [address]VKEXMSXWEBQR (MG/DL) IN URINENormalNormalNormalUniversSelect Medical Specialty Hospital - YoungstownComment on above:Performed By: #### [id number] ####[facility] ([facility])[address] [place], [place] [address]VTSNPYWJWH MICROSCOPICon 00-19-4732WHK (#/HPF) IN URINE SEDIMENT0-2NormalNone Seen, 0-2UnDunlap Memorial HospitalComment on above:Performed By: #### [id number] ####[facility] ([facility])[address] [place], [place] [address]HVBLKYTA EPITHELIAL CELLS (#/LPF) IN URINE SEDIMENTFewNormal None Seen, Occasional, FewUnDunlap Memorial HospitalComment on above: Performed By: #### [id number] ####[facility] ([facility])[address] [place], [place] [address]ZHI (LEUKOCYTE) (#/HPF) IN URINE SEDIMENT3-5AbnormalNone Seen, 0-2UnDunlap Memorial HospitalComment on above:Performed By: #### [id number] ####[facility] ([facility])[address] [place], [place] [address]-Iwmysf call radiology at [phone] to schedule ultrasound testing. Can be scheduled same day as follow up appointmentsNormalUniversSelect Medical Specialty Hospital - YoungstownFollow-Upon 70-59-7122Tllwvv-UpNormalUniversSelect Medical Specialty Hospital - [place] Follow-Upon 72-20-3772Ncnziz-UpNormalUniversity [facility]36on 27-47-675024SvkjmjRbsoklrboa of [place] Medical CenterOrders Onlyon 02-19-2024 Orders [id number] Shayy Maynard 1945 F Date Provider Department Center 02/19/2024 JF MOTTA CARD [facility] No family history on fileNormalUniversSelect Medical Specialty Hospital - YoungstownDocumentation on 68-90-9639DsgdjmbcxwiczLzcdzyLwmlhchbna of [place] [facility] Rxaiav57km 78-51-024794HtlguaClbgctpzkv [facility]30NormalUniversity [facility]aritan HospitalBASIC METABOLIC PANELon 72-92-2640Egoes gap [Moles/Vol]9 mmol/LNormal7-20UnDunlap Memorial HospitalComment on above:Performed By: #### [id number] ####[facility] ([facility])[address] [place] [address] Calcium [Mass/Vol]8.3 mg/dLLow8.6-10.3UnDunlap Memorial HospitalComment on above:Performed By: #### [id number] ####[facility] ([facility])[address] [place], [place] [address]Ewthuilm [Moles/Vol]107 mmol/LJtyxfh01-485DzizsaleukDunlap Memorial HospitalComment on above:Performed By: #### [id number] ####[facility] ([facility])[address] [place], [place] [address]WL3 [Moles/Vol]29 mmol/LNormal 21-31UnDunlap Memorial HospitalComment on above:Performed By: #### [id number] ####[facility] ([facility])[address] [place], [place] [address]Tgnrrpnqli [Mass/Vol]1.70 mg/dLHigh0.60-1.20UnDunlap Memorial HospitalComment on above:Performed By: #### [id number] ####[facility] ([facility])[address] [place], [place] [address]ALTJRTVIEQ FILTRATION RATE ML/MIN/1.73 SQ M.CRFRROPPX21.1 mL/min/1.73m*2Low>60.0UnDunlap Memorial HospitalComment on above:Result Comment: [facility]???s estimated glomerular filtration rate (eGFR) will [...] By: #### [id number] ####[facility] ([facility])[address] [place], [place] [address]Qrqlcty [Mass/Vol]85 mg/bFQwiqzy61-013HgqklwtvlkDunlap Memorial HospitalComment on above:Performed By: #### [id number] ####[facility] ([facility])[address] [place] [address]Tjlyswtkl [Moles/Vol]4.6 mmol/LNormal3.5-5.1UnDunlap Memorial HospitalComment on above:Performed By: #### [id number] ####[facility] ([facility])[address] [place] [address] Sodium [Moles/Vol]140 mmol/MYainbh891-213PotkgypvlaDunlap Memorial Hospital Comment on above:Performed By: #### [id number] ####[facility] ([facility])[address] [place], [place] [address]Xxny nitrogen [Mass/Vol]21 mg/dLNormal7-[address] [facility] HospitalComment on above:Performed By: #### [id number] ####[facility] ([facility])[address] [place], [place] [address]EEOI NITROGEN/CREATININE (MASS RATIO) IN SER/PLAS12.4NormalUniversSelect Medical Specialty Hospital - YoungstownComment on above:Performed By: #### [id number] ####[facility] ([facility])[address] [place], [place] [address]KYU WITH AUTO DIFFERENTIALon 64-62-0262Qbrevtebeju distribution width (RBC) [Ratio]16.7 %High11.5-15.[address] Charles HospitalComment on above:Performed By: #### [id number] ####[facility] ([facility])[address] [place], [place] [address]ROJWMIXFLGE MEAN CORPUSCULAR HEMOGLOBIN CONCENTRATION (G/DL) BY YPSMEGPXL31.1 g/dLLow32.0-35.[address] [facility] HospitalComment on above:Performed By: #### [id number] ####[facility] ([facility])[address] [place], [place] [address]Qguybddpft (Bld) [Volume fraction]27.9 %Low36.0-48.0UnDunlap Memorial HospitalComment on above:Performed By: #### [id number] ####[facility] ([facility])[address] [place] [address]Plqnbcvbgn (Bld) [Mass/Vol]8.4 g/dLLow12.0-15.0UnDunlap Memorial HospitalComment on above:Performed By: #### [id number] ####[facility] ([facility])[address] [place] [address]SUP (RBC) [Entitic mass] 27.5 uyXepatt46.0-33.0UnDunlap Memorial HospitalComment on above: Performed By: #### [id number] ####[facility] ([facility])[address] [place] [address]QFT (RBC) [Entitic vol]91.5 vZIrkmvl18.0-98.0UnDunlap Memorial HospitalComment on above:Performed By: #### [id number] ####[facility] ([facility])[address] [place] [address]KUCC (PER 100 WBCS) BY AUTOMATED COUNT0.0 %Qrcgcw9ZjtawoshkhDunlap Memorial HospitalComment on above: Performed By: #### [id number] ####[facility] ([facility])[address] [place] [address]YFEOSJXQL (10*3/UL) IN BLOOD AUTOMATED [id number] 10*3/uLNormal 150-400UnDunlap Memorial HospitalComment on above:Performed By: #### [id number] ####[facility] ([facility])[address] [place] [address]ZAU (Bld) [#/Vol]3.05 10*6/uLLow3.80-5.00UnDunlap Memorial HospitalComment on above:Performed By: #### [id number] ####[facility] ([facility])[address] [place] [address]ZNT (Bld) [#/Vol]5.28 10*3/uLNormal4.00-10.60UnDunlap Memorial HospitalComment on above:Performed By: #### [id number] ####[facility] ([facility])[address] [place] [address]DHkw 68-89-3002EEUqjdjb [facility] HospitalMAGNESIUMon 24-05-1165Ztblwcgsd [Mass/Vol]1.9 mg/dLNormal1.9-2.7UnDunlap Memorial HospitalComment on above:Performed By: #### [id number] ####[facility] ([facility])[address] [place] [address]KZWRDH DIFFERENTIALon 55-17-4077OVVPOGCAP (10*3/UL) IN BLOOD BY CALCULATION 0.00 10*3/uLNormal0.00-0.20UnDunlap Memorial HospitalComment on above: Performed By: #### [id number] ####[facility] ([facility])[address] [place] [address]RKAFODHAJ/100 LEUKOCYTES IN BLOOD BY AUTOMATED COUNT0.0 % Normal0.0-1.0UnDunlap Memorial HospitalComment on above:Performed By: #### [id number] ####[facility] ([facility])[address] [place] [address] EOSINOPHILS (10*3/UL) IN BLOOD BY CALCULATION0.21 10*3/uLNormal0.00-0.[address] [facility] HospitalComment on above:Performed By: #### [id number] ####[facility] ([facility])[address] [place] [address]BJCEVSXPVMJ/100 LEUKOCYTES IN BLOOD BY AUTOMATED COUNT4.0 %Normal0.0-6.0UnDunlap Memorial HospitalComment on above:Performed By: #### [id number] ####[facility] ([facility])[address] [place] [address]TZFWVGMCATJ (10*3/UL) IN BLOOD BY CALCULATION0.81 10*3/uLLow1.20-4.00UnDunlap Memorial HospitalComment on above:Performed By: #### [id number] ####[facility] ([facility])[address] [place], [place] [address]BVHINCCCFCG/100 LEUKOCYTES IN BLOOD BY AUTOMATED COUNT15.4 % Low20.0-45.0UnDunlap Memorial HospitalComment on above:Performed By: #### [id number] ####[facility] ([facility])[address] [place] [address] METAMYELOCYTES (10*3/UL) IN BLOOD BY CALCULATION0.04 10*3/uLHigh0.00UnDunlap Memorial HospitalComment on above:Performed By: #### [id number] ####[facility] ([facility])[address] [place], [place] [address]XAOLWVGJVFZRIP/100 LEUKOCYTES IN BLOOD CELLAVISION0.7 %High0.0-0.0UnDunlap Memorial HospitalComment on above:Performed By: #### [id number] ####[facility] ([facility])[address] [place], [place] [address]YCXAJHCDF (10*3/UL) IN BLOOD BY CALCUATION0.25 10*3/uLNormal0.10-1.00UnDunlap Memorial HospitalComment on above:Performed By: #### [id number] ####[facility] ([facility])[address] [place], [place] [address]FQGYXYUGX/100 LEUKOCYTES IN BLOOD BY AUTOMATED COUNT4.7 %Low 5.0-12.0UnDunlap Memorial HospitalComment on above:Performed By: #### [id number] ####[facility] ([facility])[address] [place] [address] MYELOCYTES (10*3/UL) IN BLOOD BY CALCULATION0.04 10*3/uLHigh0.00UnDunlap Memorial HospitalComment on above:Performed By: #### [id number] ####[facility] ([facility])[address] [place], [place] [address]NVGDPLSLQA/100 LEUKOCYTES IN BLOOD CELLAVISION0.7 %High0.0-0.0UnDunlap Memorial HospitalComment on above:Performed By: #### [id number] ####[facility] ([facility])[address] [place], [place] [address]DMIBRWXKYFV (10*3/UL) IN BLOOD BY CALCULATION3.9 10*3/uL Normal1.6-7.6UnDunlap Memorial HospitalComment on above:Performed By: #### [id number] ####[facility] ([facility])[address] [place] [address] NEUTROPHILS/100 LEUKOCYTES IN BLOOD BY AUTOMATED COUNT74.5 %High40.0-72.[address] [facility] HospitalComment on above:Performed By: #### [id number] ####[facility] ([facility])[address] [place], [place] [address]TGCQEV CELLS/100 LEUKOCYTES IN BLOOD0 %Ufieqn6RvidjvynsmDunlap Memorial HospitalComment on above:Performed By: #### [id number] ####[facility] ([facility])[address] [place], [place] [address]LFUHHPKON GIANT PRESENCE IN BLOOD BY LIGHT MICROSCOPYPresent NormalUnDunlap Memorial HospitalComment on above:Performed By: #### [id number] ####[facility] ([facility])[address] [place], [place] [address]ZIITNU CELLS/100 LEUKOCYTES IN BLOOD CELLAVISIONPresentNormalUniversSelect Medical Specialty Hospital - YoungstownComment on above:Performed By: #### [id number] ####[facility] ([facility])[address] [place], [place] [address]MBVLELX LYMPHOCYTES (10*3/UL) IN BLOOD BY CALCULATION0.00 10*3/uLNormal0.00UnDunlap Memorial HospitalComment on above:Performed By: #### [id number] ####[facility] ([facility])[address] [place], [place] [address]DOEVDPR LYMPHOCYTES/100 LEUKOCYTES IN BLOOD CELLAVISION0.0 % Normal0.0-0.0UnDunlap Memorial HospitalComment on above:Performed By: #### [id number] ####[facility] ([facility])[address] [place] [address] NURSNOTEon 65-09-8166BOPCCKYAIkwcyhYysdtgtfya of [place] Medical CenterPOCT GLUCOSE METER UNSOLICITED RESULTSon 41-48-4503Xacbcgg [Mass/Vol]103 mg/dLNormal 70-105UnDunlap Memorial HospitalComment on above:Order Comment: Waived Testing in the ED is performed under the ED CLIA certificate #[id number].Result Comment: [id number] By: #### [id number] ####[facility] ([facility])[address] [place], [place] [address]39fh 56-91-079384WctfctCxxhfuwkcl [facility]30NormalUniversity [facility]30The patient is Moderately Stable - Low risk of patient condition declining or worsening The patient's goals for the shift include Comfort The clinical goals for the shift include VSS, safetyNormalUniversity of Mayhill HospitalZcasmw72NtasgmYwxullbbba [facility]itan HospitalBASIC METABOLIC PANELon 12-97-3671Ffqpg gap [Moles/Vol]14 mmol/LNormal7-20UnDunlap Memorial HospitalComment on above:Performed By: #### [id number] ####[facility] ([facility])[address] [place], [place] [address]Lcdmgei [Mass/Vol]8.0 mg/dLLow8.6-10.[address] [facility] HospitalComment on above:Performed By: #### [id number] ####[facility] ([facility])[address] [place], [place] [address]Mkhyizgp [Moles/Vol]105 mmol/TIecuat32-162TfkwvrdkmwDunlap Memorial HospitalComment on above:Performed By: #### [id number] ####[facility] ([facility])[address] [place], [place] [address]OR7 [Moles/Vol]26 mmol/JAniyrf21-31AyqdbmmgtdDunlap Memorial HospitalComment on above:Performed By: #### [id number] ####[facility] ([facility])[address] [place], [place] [address]Uflebvkrpg [Mass/Vol]1.99 mg/dLHigh 0.60-1.20UnDunlap Memorial HospitalComment on above:Performed By: #### [id number] ####[facility] ([facility])[address] [place] [address]DTOALFMYHM FILTRATION RATE ML/MIN/1.73 SQ M.HFZQJLLTQ92.9 mL/min/1.73m*2Low>60.0UnDunlap Memorial HospitalComment on above:Result Comment: [facility]???s estimated glomerular filtration rate (eGFR) will [...] By: #### [id number] ####[facility] ([facility])[address] [place] [address]Bpckadj [Mass/Vol]80 mg/xDUojvhd89-631LpjbnefvxnDunlap Memorial HospitalComment on above:Performed By: #### [id number] ####[facility] ([facility])[address] [place] [address]Wxmogwgke [Moles/Vol]4.5 mmol/LNormal 3.5-5.1UnDunlap Memorial HospitalComment on above:Performed By: #### [id number] ####[facility] ([facility])[address] [place] [address]Hcfbge [Moles/Vol]140 mmol/XFhgbnd925-970HimbpxdiowDunlap Memorial HospitalComment on above:Performed By: #### [id number] ####[facility] ([facility])[address] [place] [address]Rqyo nitrogen [Mass/Vol]28 mg/dLHigh7-25UnDunlap Memorial HospitalComment on above:Performed By: #### [id number] ####[facility] ([facility])[address] [place] [address]SRMH NITROGEN/CREATININE (MASS RATIO) IN SER/PLAS14.1NormalUnDunlap Memorial HospitalComment on above: Performed By: #### [id number] ####[facility] ([facility])[address] [place] [address]ZXJ WITH AUTO DIFFERENTIALon 09-49-3248Mhmeywzskik distribution width (RBC) [Ratio]17.1 %High11.5-15.0UnDunlap Memorial HospitalComment on above:Performed By: #### [id number] ####[facility] ([facility])[address] [place] [address]AXHRUQDSSGG MEAN CORPUSCULAR HEMOGLOBIN CONCENTRATION (G/DL) BY LDFFYGRXD47.6 g/dLLow32.0-35.0UnDunlap Memorial HospitalComment on above:Performed By: #### [id number] ####[facility] ([facility])[address] [place] [address]Caqlamrtki (Bld) [Volume fraction]29.0 %Low36.0-48.[address] [facility] HospitalComment on above:Performed By: #### [id number] ####[facility] ([facility])[address] [place] [address]Ltgehkpdpx (Bld) [Mass/Vol]8.3 g/dLLow12.0-15.0UnDunlap Memorial HospitalComment on above:Performed By: #### [id number] ####[facility] ([facility])[address] [place] [address]NXRREREF PLATELET FRACTION %1.5 %Normal0.8-6.3UnDunlap Memorial HospitalComment on above:Performed By: #### [id number] ####[facility] ([facility])[address] [place] [address]SZA (RBC) [Entitic mass] 27.8 tdCbkvsi48.0-33.0UnDunlap Memorial HospitalComment on above: Performed By: #### [id number] ####[facility] ([facility])[address] [place] [address]YLA (RBC) [Entitic vol]97.0 rNUoszoe86.0-98.0UnDunlap Memorial HospitalComment on above:Performed By: #### [id number] ####[facility] ([facility])[address] [place] [address]ESIW (PER 100 WBCS) BY AUTOMATED COUNT0.0 %Xuruxt7ZqkrqtvienDunlap Memorial HospitalComment on above: Performed By: #### [id number] ####[facility] ([facility])[address] [place] [address]BMWHLJRNF (10*3/UL) IN BLOOD AUTOMATED [id number] 10*3/uLNormal 150-400UnDunlap Memorial HospitalComment on above:Performed By: #### [id number] ####[facility] ([facility])[address] [place] [address]KGK (Bld) [#/Vol]2.99 10*6/uLLow3.80-5.00UnDunlap Memorial HospitalComment on above:Performed By: #### [id number] ####[facility] ([facility])[address] [place] [address]BAV (Bld) [#/Vol]7.00 10*3/uLNormal4.00-10.60UnDunlap Memorial HospitalComment on above:Performed By: #### [id number] ####[facility] ([facility])[address] [place] [address]MIFKXBAJJvf 02-11-2024 Magnesium [Mass/Vol]2.2 mg/dLNormal1.9-2.7UnDunlap Memorial Hospital Comment on above:Performed By: #### [id number] ####[facility] ([facility])[address] [place] [address]KDCQHG DIFFERENTIALon 07-19-2057CRVUCHYIAPDP PRESENCE IN BLOOD BY LIGHT MICROSCOPYSlightNormalUniversSelect Medical Specialty Hospital - YoungstownComment on above:Performed By: #### [id number] ####[facility] ([facility])[address] [place] [address]BSEPRMFIH (10*3/UL) IN BLOOD BY CALCULATION0.07 10*3/uLNormal0.00-0.20[facility] Charles HospitalComment on above:Performed By: #### [id number] ####[facility] ([facility])[address] [place] [address]GTCRXLCKD/100 LEUKOCYTES IN BLOOD BY AUTOMATED COUNT1.0 %Normal0.0-1.0UnDunlap Memorial HospitalComment on above: Performed By: #### [id number] ####[facility] ([facility])[address] [place] [address]BSKPIDMAWIE (10*3/UL) IN BLOOD BY CALCULATION0.27 10*3/uL Normal0.00-0.50UnDunlap Memorial HospitalComment on above:Performed By: #### [id number] ####[facility] ([facility])[address] [facility] [address] EOSINOPHILS/100 LEUKOCYTES IN BLOOD BY AUTOMATED COUNT3.9 %Normal0.0-6.[address] [facility] HospitalComment on above:Performed By: #### [id number] ####[facility] ([facility])[address] [place] [address]SAGZANNK GRANULOCYTES (10*3/UL) IN BLOOD BY CALCULATION0.34 10*3/uLHigh0.00-0.[address] [facility] HospitalComment on above:Performed By: #### [id number] ####[facility] ([facility])[address] [place] [address]AXEIERQD GRANULOCYTES/100 LEUKOCYTES IN BLOOD BY AUTOMATED COUNT4.9 %High0.0-1.[address] [facility] HospitalComment on above:Performed By: #### [id number] ####[facility] ([facility])[address] [place] [address]DSWMXKWOJTA (10*3/UL) IN BLOOD BY CALCULATION1.00 10*3/uLLow1.20-4.00UnDunlap Memorial HospitalComment on above:Performed By: #### [id number] ####[facility] ([facility])[address] [place], [place] [address]AVQUBDHHJBM/100 LEUKOCYTES IN BLOOD BY AUTOMATED COUNT14.3 %Low20.0-45.0[facility] Charles HospitalComment on above:Performed By: #### [id number] ####[facility] ([facility])[address] [place], [place] [address]ZVDQOEJESC (PRESENCE) IN BLOOD BY LIGHT MICROSCOPYSlight NormalUnDunlap Memorial HospitalComment on above:Performed By: #### [id number] ####[facility] ([facility])[address] [place] [address] MONOCYTES (10*3/UL) IN BLOOD BY CALCUATION0.68 10*3/uLNormal0.10-1.00[facility] Charles HospitalComment on above:Performed By: #### [id number] ####[facility] ([facility])[address] [place], [place] [address]IFIRADRXS/100 LEUKOCYTES IN BLOOD BY AUTOMATED COUNT9.7 %Normal5.0-12.0[facility] HospitalComscheurer hospital on above:Performed By: #### [id number] ####[facility] ([facility])[address] [place], [place] [address]KWJYAYDXGQC (10*3/UL) IN BLOOD BY CALCULATION4.6 10*3/uLNormal1.6-7.6UnDunlap Memorial HospitalComment on above:Performed By: #### [id number] ####[facility] ([facility])[address] [place], [place] [address]WQHHKRPEYTV/100 LEUKOCYTES IN BLOOD BY AUTOMATED COUNT66.2 % Bogykr33.0-72.0[facility] Charles HospitalComment on above:Performed By: #### [id number] ####[facility] ([facility])[address] [place] [address] POIKILOCYTOSIS (PRESENCE) IN BLOOD BY LIGHT MICROSCOPYSlightNormalUniOhio State University Wexner Medical CenterComment on above:Performed By: #### [id number] ####[facility] ([facility])[address] [place], [place] [address]TRKZ GLUCOSE METER UNSOLICITED RESULTSon 67-49-8752Iwnbwdy [Mass/Vol]140 mg/jNHkib11-468RbhzfmghsrDunlap Memorial HospitalComment on above:Order Comment: Waived Testing in the ED is performed under the ED CLIA certificate #[id number].Result Comment: [email or web address] Performed By: #### [id number] ####[facility] ([facility])[address] [place], [place] [address]Uneqjtx [Mass/Vol]158 mg/aFWynj16-231QpgbndfphzDunlap Memorial HospitalComment on above:Order Comment: Waived Testing in the ED is performed under the ED CLIA certificate #[id number].Result Comment: [email or web address] Performed By: #### [id number] ####[facility] ([facility])[address] [place], [place] [address]Hlfmyny [Mass/Vol]164 mg/mNGnkh10-681PhsnbstkseDunlap Memorial HospitalComment on above:Order Comment: Waived Testing in the ED is performed under the ED CLIA certificate #[id number].Result Comment: [email or web address] Performed By: #### [id number] ####[facility] ([facility])[address] [place], [place] [address]Kdvfivo [Mass/Vol]96 mg/wXGfnlpk31-830LveumhigwlDunlap Memorial HospitalComment on above:Order Comment: Waived Testing in the ED is performed under the ED CLIA certificate #[id number].Result Comment: [email or web address] Performed By: #### [id number] ####[facility] ([facility])[address] [place], [place] [address]30wb [id number] [facility]30 The patient is Moderately Stable - Low risk of patient condition declining or worsening The patient's goals for the shift include Comfort The clinical goals for the shift include VSS, safetyNormalUniversity of Mayhill HospitalIpmrtp45NnhmbuJrwbhuetoiSelect Medical Specialty Hospital - YoungstownBASIC METABOLIC PANELon 20-34-2280Iypxz gap [Moles/Vol]10 mmol/LNormal7-20UnDunlap Memorial HospitalComment on above:Performed By: #### [id number] ####[facility] ([facility])[address] [place], [place] [address]Rdlutqr [Mass/Vol]8.0 mg/dLLow8.6-10.[address] [facility] HospitalComment on above:Performed By: #### [id number] ####[facility] ([facility])[address] [place], [place] [address]Xbvbywzn [Moles/Vol]106 mmol/DNnnyeb75-401MtsueejboyDunlap Memorial HospitalComment on above:Performed By: #### [id number] ####[facility] ([facility])[address] [place], [place] [address]JX5 [Moles/Vol]29 mmol/YZcggxs24-09NkhfrjllyiDunlap Memorial HospitalComment on above:Performed By: #### [id number] ####[facility] ([facility])[address] [place], [place] [address]Nfbiylbwrz [Mass/Vol]2.41 mg/dLHigh 0.60-1.20UnDunlap Memorial HospitalComment on above:Performed By: #### [id number] ####[facility] ([facility])[address] [place], [place] [address]USNNOHNEYQ FILTRATION RATE ML/MIN/1.73 SQ M.ZPBFVHYST02.8 mL/min/1.73m*2Low>60.0UnDunlap Memorial HospitalComment on above:Result Comment: [facility]???s estimated glomerular filtration rate (eGFR) will [...] By: #### [id number] ####[facility] ([facility])[address] [place] [address]Czqwtox [Mass/Vol]81 mg/cHTqxkdw34-531WsssxenafvDunlap Memorial HospitalComment on above:Performed By: #### [id number] ####[facility] ([facility])[address] [place] [address]Hneyntzua [Moles/Vol]4.1 mmol/LNormal 3.5-5.1UnDunlap Memorial HospitalComment on above:Performed By: #### [id number] ####[facility] ([facility])[address] [place] [address]Cykzfd [Moles/Vol]141 mmol/ZRbxspt638-444KrualtthtiDunlap Memorial HospitalComment on above:Performed By: #### [id number] ####[facility] ([facility])[address] [place] [address]Pbtc nitrogen [Mass/Vol]36 mg/dLHigh7-25UnDunlap Memorial HospitalComment on above:Performed By: #### [id number] ####[facility] ([facility])[address] [place], [place] [address]APRQ NITROGEN/CREATININE (MASS RATIO) IN SER/PLAS14.9NormalUniversSelect Medical Specialty Hospital - YoungstownComment on above: Performed By: #### [id number] ####[facility] ([facility])[address] [place] [address]JRD WITH AUTO DIFFERENTIALon 46-87-3138Limlqkkpb (Bld) [#/Vol]0.05 10*3/uLNormal0.00-0.20UnDunlap Memorial HospitalComment on above: Performed By: #### [id number] ####[facility] ([facility])[address] [place] [address]Cejtkvcts/100 WBC (Bld)0.7 %Normal0.0-1.0UnDunlap Memorial HospitalComment on above:Performed By: #### [id number] ####[facility] ([facility])[address] [place], [place] [address]Rpwteyefwpx (Bld) [#/Vol]0.29 10*3/uL Normal0.00-0.50UnDunlap Memorial HospitalComment on above:Performed By: #### [id number] ####[facility] ([facility])[address] [place] [address] Eosinophils/100 WBC (Bld)4.2 %Normal0.0-6.0UnDunlap Memorial Hospital Comment on above:Performed By: #### [id number] ####[facility] ([facility])[address] [place], [place] [address]Vfcmmbalblq distribution width (RBC) [Ratio]16.9 % High11.5-15.0UnDunlap Memorial HospitalComment on above:Performed By: #### [id number] ####[facility] ([facility])[address] [place] [address] ERYTHROCYTE MEAN CORPUSCULAR HEMOGLOBIN CONCENTRATION (G/DL) BY QNTKRPOLC75.1 g/dLLow32.0-35.0UnDunlap Memorial HospitalComment on above:Performed By: #### [id number] ####[facility] ([facility])[address] [place], [place] [address]Cuccmbziwe (Bld) [Volume fraction]28.6 %Low36.0-48.0UnDunlap Memorial HospitalComment on above:Performed By: #### [id number] ####[facility] ([facility])[address] [place], [place] [address]Mrzrkdptev (Bld) [Mass/Vol]8.6 g/dLLow 12.0-15.0UnDunlap Memorial HospitalComment on above:Performed By: #### [id number] ####[facility] ([facility])[address] [place], [place] [address]Tpqxaiqm granulocytes (Bld) [#/Vol]0.32 10*3/uLHigh0.00-0.20UnDunlap Memorial HospitalComment on above:Performed By: #### [id number] ####[facility] ([facility])[address] [place] [address]Pebpfrnl granulocytes/100 WBC (Bld)4.6 %High0.0-1.0UnDunlap Memorial HospitalComment on above:Performed By: #### [id number] ####[facility] ([facility])[address] [place] [address] Lymphocytes (Bld) [#/Vol]1.03 10*3/uLLow1.20-4.00UnDunlap Memorial HospitalComment on above:Performed By: #### [id number] ####[facility] ([facility])[address] [place] [address]Dtmwzzfjbqq/100 WBC (Bld)14.9 %Low 20.0-45.0UnDunlap Memorial HospitalComment on above:Performed By: #### [id number] ####[facility] ([facility])[address] [place], [place] [address]VVX (RBC) [Entitic mass]27.8 jzUtyabb88.0-33.0UnDunlap Memorial Hospital Comment on above:Performed By: #### [id number] ####[facility] ([facility])[address] [place], [place] [address]UAQ (RBC) [Entitic vol]92.6 lUCiapva56.0-98.[address] [facility] HospitalComment on above:Performed By: #### [id number] ####[facility] ([facility])[address] [place] [address]Lufbosaft (Bld) [#/Vol]0.59 10*3/uLNormal0.10-1.00UnDunlap Memorial HospitalComment on above:Performed By: #### [id number] ####[facility] ([facility])[address] [place], [place] [address]Lupgozdho/100 WBC (Bld)8.5 %Normal5.0-12.0UnDunlap Memorial HospitalComment on above:Performed By: #### [id number] ####[facility] ([facility])[address] [place] [address]Nvuilzhauhc (Bld) [#/Vol] 4.63 10*3/uLNormal1.60-7.60UnDunlap Memorial HospitalComment on above: Performed By: #### [id number] ####[facility] ([facility])[address] [place] [address]Bkkaobcmlwh/100 WBC (Bld)67.1 %Nfmbik54.0-72.0UnDunlap Memorial HospitalComment on above:Performed By: #### [id number] ####[facility] ([facility])[address] [place] [address]VTTN (PER 100 WBCS) BY AUTOMATED COUNT0.0 %Ebbwcf5IthbfreqyjDunlap Memorial HospitalComment on above: Performed By: #### [id number] ####[facility] ([facility])[address] [place] [address]LMFXBHMRC (10*3/UL) IN BLOOD AUTOMATED HFHSW038 10*3/uLNormal 150-400UnDunlap Memorial HospitalComment on above:Performed By: #### [id number] ####[facility] ([facility])[address] [place] [address]VGE (Bld) [#/Vol]3.09 10*6/uLLow3.80-5.00UnDunlap Memorial HospitalComment on above:Performed By: #### [id number] ####[facility] ([facility])[address] [place] [address]OOB (Bld) [#/Vol]6.91 10*3/uLNormal4.00-10.60UnDunlap Memorial HospitalComment on above:Performed By: #### [id number] ####[facility] ([facility])[address] [place] [address]VSJAVGWWPva 02-10-2024 Magnesium [Mass/Vol]2.7 mg/dLNormal1.9-2.7UnDunlap Memorial Hospital Comment on above:Performed By: #### [id number] ####[facility] ([facility])[address] [place], [place] [address]QUOW GLUCOSE METER UNSOLICITED RESULTSon 02-10-2024 Glucose [Mass/Vol]110 mg/zDUgzr48-571LycuswixekDunlap Memorial HospitalComment on above:Order Comment: Waived Testing in the ED is performed under the ED CLIA certificate #[id number].Result Comment: [email or web address] By: #### [id number] ####[facility] ([facility])[address] [place], [place] [address]Pxpqbdg [Mass/Vol]181 mg/yHBght20-280XzzkkwcajnDunlap Memorial HospitalComment on above:Order Comment: Waived Testing in the ED is performed under the ED CLIA certificate #[id number].Result Comment: [email or web address] By: #### [id number] ####[facility] ([facility])[address] [place], [place] [address]Ksrqlpk [Mass/Vol]136 mg/iDRmqi16-988TlavnqrhjbDunlap Memorial HospitalComment on above:Order Comment: Waived Testing in the ED is performed under the ED CLIA certificate #[id number].Result Comment: [id number] By: #### [id number] ####[facility] ([facility])[address] [place], [place] [address]Ktmwavt [Mass/Vol]92 mg/yRPrtjsd00-191UjusenscinDunlap Memorial HospitalComment on above:Order Comment: Waived Testing in the ED is performed under the ED CLIA certificate #[id number].Result Comment: [email or web address] By: #### [id number] ####[facility] ([facility])[address] [place], [place] [address]Lpqdqyc [Mass/Vol]99 mg/mIZsxakx04-766VuutjhlqviDunlap Memorial HospitalComment on above:Order Comment: Waived Testing in the ED is performed under the ED CLIA certificate #[id number].Result Comment: [email or web address] By: #### [id number] ####[facility] ([facility])[address] [place], [place] [address]20gg 02-09-2024 30NormalUniversity [facility]30NormalUniversity [facility]30NormalUniversity [facility]aritan HospitalBASIC METABOLIC PANELon 63-26-1606Iscaf gap [Moles/Vol]10 mmol/LNormal7-20UnDunlap Memorial HospitalComment on above:Performed By: #### [id number] ####[facility] ([facility])[address] [place], [place] [address]Fvnfrfe [Mass/Vol]8.1 mg/dLLow8.6-10.[address] [facility] HospitalComment on above:Performed By: #### [id number] ####[facility] ([facility])[address] [place], [place] [address]Xvapmhpv [Moles/Vol]104 mmol/WPhwhtx24-833YjoogzlklaDunlap Memorial HospitalComment on above:Performed By: #### [id number] ####[facility] ([facility])[address] [place], [place] [address]KE5 [Moles/Vol]30 mmol/NMzgclr56-20DgrknorisdDunlap Memorial HospitalComment on above:Performed By: #### [id number] ####[facility] ([facility])[address] [place], [place] [address]Zqatiboemo [Mass/Vol]3.10 mg/dLHigh 0.60-1.20UnDunlap Memorial HospitalComment on above:Performed By: #### [id number] ####[facility] ([facility])[address] [place], [place] [address]ULKIOFHEJD FILTRATION RATE ML/MIN/1.73 SQ M.MIWDRTEFZ96.7 mL/min/1.73m*2Low>60.0UnDunlap Memorial HospitalComment on above:Result Comment: [facility]???s estimated glomerular filtration rate (eGFR) will [...] By: #### [id number] ####[facility] ([facility])[address] [place], [place] [address]Ocivguu [Mass/Vol]89 mg/qGFnudky09-310WdmbnrswbqDunlap Memorial HospitalComment on above:Performed By: #### [id number] ####[facility] ([facility])[address] [place], [place] [address]Usxufsteu [Moles/Vol]4.2 mmol/LNormal 3.5-5.1UnDunlap Memorial HospitalComment on above:Performed By: #### [id number] ####[facility] ([facility])[address] [place], [place] [address]Aoupsi [Moles/Vol]140 mmol/CZufmfl335-092ZyzbaaxekxDunlap Memorial HospitalComment on above:Performed By: #### [id number] ####[facility] ([facility])[address] [place], [place] [address]Mnwx nitrogen [Mass/Vol]45 mg/dLHigh7-25UnDunlap Memorial HospitalComment on above:Performed By: #### [id number] ####[facility] ([facility])[address] [place], [place] [address]UFPC NITROGEN/CREATININE (MASS RATIO) IN SER/PLAS14.5NormalUniversSelect Medical Specialty Hospital - YoungstownComment on above: Performed By: #### [id number] ####[facility] ([facility])[address] [place], [place] [address]GBQ WITH AUTO DIFFERENTIALon 86-31-8454Fiikvrgcu (Bld) [#/Vol]0.05 10*3/uLNormal0.00-0.20UnDunlap Memorial HospitalComment on above: Performed By: #### [id number] ####[facility] ([facility])[address] [place], [place] [address]Pwavjjxiu/100 WBC (Bld)0.7 %Normal0.0-1.0UnDunlap Memorial HospitalComment on above:Performed By: #### [id number] ####[facility] ([facility])[address] [place], [place] [address]Betxizclgvm (Bld) [#/Vol]0.24 10*3/uL Normal0.00-0.50UnDunlap Memorial HospitalComment on above:Performed By: #### [id number] ####[facility] ([facility])[address] [place] [address] Eosinophils/100 WBC (Bld)3.1 %Normal0.0-6.0UnDunlap Memorial Hospital Comment on above:Performed By: #### [id number] ####[facility] ([facility])[address] [place], [place] [address]Dcmxbiqnhke distribution width (RBC) [Ratio]17.1 % High11.5-15.0UnDunlap Memorial HospitalComment on above:Performed By: #### [id number] ####[facility] ([facility])[address] [place] [address] ERYTHROCYTE MEAN CORPUSCULAR HEMOGLOBIN CONCENTRATION (G/DL) BY ZROMZDNMX84.4 g/dLLow32.0-35.0UnDunlap Memorial HospitalComment on above:Performed By: #### [id number] ####[facility] ([facility])[address] [place], [place] [address]Vpecmzoimz (Bld) [Volume fraction]27.2 %Low36.0-48.0UnDunlap Memorial HospitalComment on above:Performed By: #### [id number] ####[facility] ([facility])[address] [place], [place] [address]Pnqsvtvlqr (Bld) [Mass/Vol]8.0 g/dLLow 12.0-15.0UnDunlap Memorial HospitalComment on above:Performed By: #### [id number] ####[facility] ([facility])[address] [place], [place] [address]Tlrimqxr granulocytes (Bld) [#/Vol]0.28 10*3/uLHigh0.00-0.20UnDunlap Memorial HospitalComment on above:Performed By: #### [id number] ####[facility] ([facility])[address] [place], [place] [address]Grclcxdj granulocytes/100 WBC (Bld)3.7 %High0.0-1.0UnDunlap Memorial HospitalComment on above:Performed By: #### [id number] ####[facility] ([facility])[address] [place] [address] Lymphocytes (Bld) [#/Vol]0.92 10*3/uLLow1.20-4.00UnDunlap Memorial HospitalComment on above:Performed By: #### [id number] ####[facility] ([facility])[address] [place], [place] [address]Vgbpfqsbtrh/100 WBC (Bld)12.0 %Low 20.0-45.0UnDunlap Memorial HospitalComment on above:Performed By: #### [id number] ####[facility] ([facility])[address] [place], [place] [address]FXQ (RBC) [Entitic mass]27.4 ooCbjfhf74.0-33.0UnDunlap Memorial Hospital Comment on above:Performed By: #### [id number] ####[facility] ([facility])[address] [place], [place] [address]TMC (RBC) [Entitic vol]93.2 gYWncrzn44.0-98.[address] [facility] HospitalComment on above:Performed By: #### [id number] ####[facility] ([facility])[address] [place], [place] [address]Ormyedenl (Bld) [#/Vol]0.65 10*3/uLNormal0.10-1.00UnDunlap Memorial HospitalComment on above:Performed By: #### [id number] ####[facility] ([facility])[address] [place], [place] [address]Mmrfsguib/100 WBC (Bld)8.5 %Normal5.0-12.0UnDunlap Memorial HospitalComment on above:Performed By: #### [id number] ####[facility] ([facility])[address] [place] [address]Lepepxczjyb (Bld) [#/Vol] 5.79 10*3/uLNormal1.60-7.60UnDunlap Memorial HospitalComment on above: Performed By: #### [id number] ####[facility] ([facility])[address] [place] [address]Zulzetclftr/100 WBC (Bld)75.7 %High40.0-72.0UnDunlap Memorial HospitalComment on above:Performed By: #### [id number] ####[facility] ([facility])[address] [place] [address]OODY (PER 100 WBCS) BY AUTOMATED COUNT0.0 %Zdkjgs7SomrcqkehmDunlap Memorial HospitalComment on above: Performed By: #### [id number] ####[facility] ([facility])[address] [place] [address]VUADEJHFU (10*3/UL) IN BLOOD AUTOMATED AZOZN329 10*3/uLNormal 150-400UnDunlap Memorial HospitalComment on above:Performed By: #### [id number] ####[facility] ([facility])[address] [place] [address]PQM (Bld) [#/Vol]2.92 10*6/uLLow3.80-5.00UnDunlap Memorial HospitalComment on above:Performed By: #### [id number] ####[facility] ([facility])[address] [place] [address]DDF (Bld) [#/Vol]7.65 10*3/uLNormal4.00-10.60UnDunlap Memorial HospitalComment on above:Performed By: #### [id number] ####[facility] ([facility])[address] [place], [place] [address]HOMEXURda 02-09-2024 CONSULTNormalUniversSelect Medical Specialty Hospital - YoungstownMAGNESIUMon 84-47-9211Atwbxayhb [Mass/Vol]3.2 mg/dLHigh1.9-2.7UnDunlap Memorial HospitalComment on above:Performed By: #### [id number] ####[facility] ([facility])[address] [place], [place] [address]AFIB GLUCOSE METER UNSOLICITED RESULTSon 32-03-1414Kjfcpua [Mass/Vol]173 mg/cMCzwx60-265DvzdxcjoubDunlap Memorial HospitalComment on above:Order Comment: Waived Testing in the ED is performed under the ED CLIA certificate #[id number].Result Comment: [email or web address] By: #### [id number] ####[facility] ([facility])[address] [place], [place] [address]Ogrqeiy [Mass/Vol]201 mg/sNVqkv19-332YvtemjlmafDunlap Memorial HospitalComment on above:Order Comment: Waived Testing in the ED is performed under the ED CLIA certificate #[id number].Result Comment: [email or web address] By: #### [id number] ####[facility] ([facility])[address] [place], [place] [address]Cchteqj [Mass/Vol]118 mg/bCSbum08-628CeeymhqvkhDunlap Memorial HospitalComment on above:Order Comment: Waived Testing in the ED is performed under the ED CLIA certificate #[id number].Result Comment: [id number] By: #### [id number] ####[facility] ([facility])[address] [place], [place] [address]Jutcvrp [Mass/Vol]129 mg/qVUkhp91-753LyhblwpnfyDunlap Memorial HospitalComment on above:Order Comment: Waived Testing in the ED is performed under the ED CLIA certificate #[id number].Result Comment: [id number] By: #### [id number] ####[facility] ([facility])[address] [place], [place] [id number] 02-08-2024 30NormalUniversSelect Medical Specialty Hospital - [place]stown30NormalUniversSelect Medical Specialty Hospital - YoungstownBASIC METABOLIC PANELon 42-24-7773Dvinb gap [Moles/Vol]10 mmol/LNormal7-[address] [facility] HospitalComment on above:Performed By: #### [id number] ####[facility] ([facility])[address] [place], [place] [address]Hsktnkc [Mass/Vol]8.3 mg/dLLow8.6-10.3UnDunlap Memorial HospitalComment on above:Performed By: #### [id number] ####[facility] ([facility])[address] [place], [place] [address]Fgdchvbe [Moles/Vol]101 mmol/GYvkigg23-476CfrulfgdapDunlap Memorial HospitalComment on above:Performed By: #### [id number] ####[facility] ([facility])[address] [place], [place] [address]ON5 [Moles/Vol]30 mmol/LNormal 21-31UnDunlap Memorial HospitalComment on above:Performed By: #### [id number] ####[facility] ([facility])[address] [place], [place] [address]Gzmjwnyfmy [Mass/Vol]3.65 mg/dLHigh0.60-1.20UnDunlap Memorial HospitalComment on above:Performed By: #### [id number] ####[facility] ([facility])[address] [place], [place] [address]AMXSZXZTOG FILTRATION RATE ML/MIN/1.73 SQ M.MSFXSAJEC19.0 mL/min/1.73m*2Low>60.0UnDunlap Memorial HospitalComment on above:Result Comment: [facility]???s estimated glomerular filtration rate (eGFR) will [...] By: #### [id number] ####[facility] ([facility])[address] [place] [address]Wvcvgwj [Mass/Vol]102 mg/dUAbot47-978GwowfyeepjDunlap Memorial HospitalComment on above:Performed By: #### [id number] ####[facility] ([facility])[address] [place] [address]Upsqmotxn [Moles/Vol]4.2 mmol/L Normal3.5-5.1UnDunlap Memorial HospitalComment on above:Performed By: #### [id number] ####[facility] ([facility])[address] [place] [address] Sodium [Moles/Vol]137 mmol/SJnoipt422-581TolbqowolfDunlap Memorial Hospital Comment on above:Performed By: #### [id number] ####[facility] ([facility])[address] [place], [place] [address]Jcyc nitrogen [Mass/Vol]50 mg/dLHigh7-25UnDunlap Memorial HospitalComment on above:Performed By: #### [id number] ####[facility] ([facility])[address] [place] [address]JSTD NITROGEN/CREATININE (MASS RATIO) IN SER/PLAS13.7NormalUniversSelect Medical Specialty Hospital - YoungstownComment on above:Performed By: #### [id number] ####[facility] ([facility])[address] [place] [address]HZD WITH AUTO DIFFERENTIALon 49-31-5311Bjuuxxffe (Bld) [#/Vol]0.03 10*3/uLNormal0.00-0.20UnDunlap Memorial HospitalComment on above:Performed By: #### [id number] ####[facility] ([facility])[address] [place] [address]Bnaiyxhnw/100 WBC (Bld)0.4 %Normal0.0-1.0UnDunlap Memorial HospitalComment on above:Performed By: #### [id number] ####[facility] ([facility])[address] [place], [place] [address]Dvaegfecxcu (Bld) [#/Vol]0.20 10*3/uL Normal0.00-0.50UnDunlap Memorial HospitalComment on above:Performed By: #### [id number] ####[facility] ([facility])[address] [place] [address] Eosinophils/100 WBC (Bld)2.9 %Normal0.0-6.0UnDunlap Memorial Hospital Comment on above:Performed By: #### [id number] ####[facility] ([facility])[address] [place], [place] [address]Ulvxtwijovy distribution width (RBC) [Ratio]16.9 % High11.5-15.0UnDunlap Memorial HospitalComment on above:Performed By: #### [id number] ####[facility] ([facility])[address] [place] [address] ERYTHROCYTE MEAN CORPUSCULAR HEMOGLOBIN CONCENTRATION (G/DL) BY FVDCSGNJA71.8 g/dLLow32.0-35.0UnDunlap Memorial HospitalComment on above:Performed By: #### [id number] ####[facility] ([facility])[address] [place], [place] [address]Hbnhuciuhz (Bld) [Volume fraction]25.3 %Low36.0-48.0UnDunlap Memorial HospitalComment on above:Performed By: #### [id number] ####[facility] ([facility])[address] [place], [place] [address]Qsjeaajekv (Bld) [Mass/Vol]7.8 g/dLLow 12.0-15.0UnDunlap Memorial HospitalComment on above:Performed By: #### [id number] ####[facility] ([facility])[address] [place], [place] [address]Nhytalwr granulocytes (Bld) [#/Vol]0.23 10*3/uLHigh0.00-0.20UnDunlap Memorial HospitalComment on above:Performed By: #### [id number] ####[facility] ([facility])[address] [place] [place], [place] [address]Arcfuhgi granulocytes/100 WBC (Bld)3.3 %High0.0-1.0UnDunlap Memorial HospitalComment on above:Performed By: #### [id number] ####[facility] ([facility])[address] [place] [address] Lymphocytes (Bld) [#/Vol]0.80 10*3/uLLow1.20-4.00UnDunlap Memorial HospitalComment on above:Performed By: #### [id number] ####[facility] ([facility])[address] [place], [place] [address]Dlbzfgohtqw/100 WBC (Bld)11.5 %Low 20.0-45.0UnDunlap Memorial HospitalComment on above:Performed By: #### [id number] ####[facility] ([facility])[address] [place], [place] [address]MZO (RBC) [Entitic mass]28.3 rnDkxnbx72.0-33.0UnDunlap Memorial Hospital Comment on above:Performed By: #### [id number] ####[facility] ([facility])[address] [place], [place] [address]BNM (RBC) [Entitic vol]91.7 iZHhrdpv69.0-98.[address] Charles HospitalComment on above:Performed By: #### [id number] ####[facility] ([facility])[address] [place], [place] [address]Gutoolren (Bld) [#/Vol]0.63 10*3/uLNormal0.10-1.00UnDunlap Memorial HospitalComment on above:Performed By: #### [id number] ####[facility] ([facility])[address] [place], [place] [address]Opafxhkyp/100 WBC (Bld)9.0 %Normal5.0-12.0UnDunlap Memorial HospitalComment on above:Performed By: #### [id number] ####[facility] ([facility])[address] [place] [address]Ootcektilrj (Bld) [#/Vol] 5.32 10*3/uLNormal1.60-7.60UnDunlap Memorial HospitalComment on above: Performed By: #### [id number] ####[facility] ([facility])[address] [place] [address]Enqljsffpjj/100 WBC (Bld)76.2 %High40.0-72.0UnDunlap Memorial HospitalComment on above:Performed By: #### [id number] ####[facility] ([facility])[address] [place] [address]BIBU (PER 100 WBCS) BY AUTOMATED COUNT0.0 %Mdyanz6TplgqzfopnDunlap Memorial HospitalComment on above: Performed By: #### [id number] ####[facility] ([facility])[address] [place] [address]TOOAAYWFG (10*3/UL) IN BLOOD AUTOMATED [id number] 10*3/uLNormal 150-400UnDunlap Memorial HospitalComment on above:Performed By: #### [id number] ####[facility] ([facility])[address] [place] [address]WVY (Bld) [#/Vol]2.76 10*6/uLLow3.80-5.00UnDunlap Memorial HospitalComment on above:Performed By: #### [id number] ####[facility] ([facility])[address] [place] [address]JAY (Bld) [#/Vol]6.98 10*3/uLNormal4.00-10.60UnDunlap Memorial HospitalComment on above:Performed By: #### [id number] ####[facility] ([facility])[address] [place] [address]HPXASXTNZjq 02-08-2024 Magnesium [Mass/Vol]3.6 mg/dLHigh1.9-2.7UnDunlap Memorial Hospital Comment on above:Performed By: #### [id number] ####[facility] ([facility])[address] [place], [place] [address]HCKBJMCVzz 73-93-0283VVGFXWEZJatbkjUyelrzzegf of Toledo Medical CenterPOCT GLUCOSE METER UNSOLICITED RESULTSon 65-10-9417Onjhxjp [Mass/Vol]160 mg/iAIyrn92-074FimunqhglrDunlap Memorial HospitalComment on above:Order Comment: Waived Testing in the ED is performed under the ED CLIA certificate #[id number].Result Comment: [id number] By: #### [id number] ####[facility] ([facility])[address] [place], [place] [address]Ubbbsip [Mass/Vol]128 mg/mGErye76-229TrpayjovtlDunlap Memorial HospitalComment on above:Order Comment: Waived Testing in the ED is performed under the ED CLIA certificate #[id number].Result Comment: [id number] By: #### [id number] ####[facility] ([facility])[address] [place] [address]19vs 02-07-2024 30NormalUniversSelect Medical Specialty Hospital - Youngstown30NormalUniversSelect Medical Specialty Hospital - YoungstownB-TYPE NATRIURETIC PEPTIDEon 50-67-5250Aosdisbrxjx peptide B (Bld) [Mass/Vol]1210 pg/mLHigh0-100UnDunlap Memorial HospitalComment on above:Performed By: #### [id number] ####[facility] ([facility])[address] [facility], [place] [address]HTLRK METABOLIC PANELon 45-24-7249Mwhuh gap [Moles/Vol]13 mmol/LNormal7-20UnDunlap Memorial HospitalComment on above:Performed By: #### [id number] ####[facility] ([facility])[address] [facility] [address] Calcium [Mass/Vol]8.2 mg/dLLow8.6-10.3UnDunlap Memorial HospitalComment on above:Performed By: #### [id number] ####[facility] ([facility])[address] [place], [place] [address]Tguzkdyc [Moles/Vol]100 mmol/HJwdcec25-742NuswtonzikDunlap Memorial HospitalComment on above:Performed By: #### [id number] ####[facility] ([facility])[address] [place], [place] [address]YR6 [Moles/Vol]29 mmol/LNormal 21-31UnDunlap Memorial HospitalComment on above:Performed By: #### [id number] ####[facility] ([facility])[address] [place], [place] [address]Kqfoqyzzxt [Mass/Vol]3.57 mg/dLHigh0.60-1.20UnDunlap Memorial HospitalComment on above:Performed By: #### [id number] ####[facility] ([facility])[address] [place], [place] [address]LICAFOBFDE FILTRATION RATE ML/MIN/1.73 SQ M.AAUPHTUQU55.4 mL/min/1.73m*2Low>60.0UnDunlap Memorial HospitalComment on above:Result Comment: [facility]???s estimated glomerular filtration rate (eGFR) will [...] By: #### [id number] ####[facility] ([facility])[address] [place], [place] [address]Ncsnucp [Mass/Vol]107 mg/qRRdvi27-506ZamyszltyiDunlap Memorial HospitalComment on above:Performed By: #### [id number] ####[facility] ([facility])[address] [place], [place] [address]Chfmlwydp [Moles/Vol]4.0 mmol/L Normal3.5-5.1UnDunlap Memorial HospitalComment on above:Performed By: #### [id number] ####[facility] ([facility])[address] [place] [address] Sodium [Moles/Vol]138 mmol/EYdhuiv889-783PqppgdvzvjDunlap Memorial Hospital Comment on above:Performed By: #### [id number] ####[facility] ([facility])[address] [place] [address]Aabw nitrogen [Mass/Vol]48 mg/dLHigh7-25UnDunlap Memorial HospitalComment on above:Performed By: #### [id number] ####[facility] ([facility])[address] [place] [address]CBQM NITROGEN/CREATININE (MASS RATIO) IN SER/PLAS13.4NormalUniversSelect Medical Specialty Hospital - YoungstownComment on above:Performed By: #### [id number] ####[facility] ([facility])[address] [place], [place] [address]LUK WITH AUTO DIFFERENTIALon 60-79-5506Kexpkxyjy (Bld) [#/Vol]0.02 10*3/uLNormal0.00-0.20UnDunlap Memorial HospitalComment on above:Performed By: #### [id number] ####[facility] ([facility])[address] [place] [address]Dhnfzvkgj/100 WBC (Bld)0.3 %Normal0.0-1.0UnDunlap Memorial HospitalComment on above:Performed By: #### [id number] ####[facility] ([facility])[address] [place] [address]Mbpnkbcucsi (Bld) [#/Vol]0.01 10*3/uL Normal0.00-0.50UnDunlap Memorial HospitalComment on above:Performed By: #### [id number] ####[facility] ([facility])[address] [place] [address] Eosinophils/100 WBC (Bld)0.1 %Normal0.0-6.0UnDunlap Memorial Hospital Comment on above:Performed By: #### [id number] ####[facility] ([facility])[address] [place], [place] [address]Anwqpaufhqu distribution width (RBC) [Ratio]16.9 % High11.5-15.0UnDunlap Memorial HospitalComment on above:Performed By: #### [id number] ####[facility] ([facility])[address] [place] [address] ERYTHROCYTE MEAN CORPUSCULAR HEMOGLOBIN CONCENTRATION (G/DL) BY WKXONZPGF47.5 g/dLLow32.0-35.0UnDunlap Memorial HospitalComment on above:Performed By: #### [id number] ####[facility] ([facility])[address] [place], [place] [address]Hteatoprel (Bld) [Volume fraction]24.6 %Low36.0-48.0UnDunlap Memorial HospitalComment on above:Performed By: #### [id number] ####[facility] ([facility])[address] [place], [place] [address]Nxlgfasqkj (Bld) [Mass/Vol]7.5 g/dLLow 12.0-15.0UnDunlap Memorial HospitalComment on above:Performed By: #### [id number] ####[facility] ([facility])[address] [place], [place] [address]Odtsqmld granulocytes (Bld) [#/Vol]0.09 10*3/uLNormal0.00-0.20UnDunlap Memorial HospitalComment on above:Performed By: #### [id number] ####[facility] ([facility])[address] [place], [place] [address]Fillbadg granulocytes/100 WBC (Bld)1.2 %High0.0-1.0UnDunlap Memorial HospitalComment on above:Performed By: #### [id number] ####[facility] ([facility])[address] [place] [address] Lymphocytes (Bld) [#/Vol]0.66 10*3/uLLow1.20-4.00UnDunlap Memorial HospitalComment on above:Performed By: #### [id number] ####[facility] ([facility])[address] [place] [address]Dxvdetkkahj/100 WBC (Bld)8.6 %Low 20.0-45.0UnDunlap Memorial HospitalComment on above:Performed By: #### [id number] ####[facility] ([facility])[address] [place], [place] [address]UTZ (RBC) [Entitic mass]27.7 rnNgrkdk89.0-33.0UnDunlap Memorial Hospital Comment on above:Performed By: #### [id number] ####[facility] ([facility])[address] [place], [place] [address]IWY (RBC) [Entitic vol]90.8 hYBnbyjn83.0-98.[address] [facility] HospitalComment on above:Performed By: #### [id number] ####[facility] ([facility])[address] [place], [place] [address]Mszdnkjsp (Bld) [#/Vol]0.50 10*3/uLNormal0.10-1.00UnDunlap Memorial HospitalComment on above:Performed By: #### [id number] ####[facility] ([facility])[address] [place], [place] [address]Abdauyogo/100 WBC (Bld)6.5 %Normal5.0-12.0UnDunlap Memorial HospitalComment on above:Performed By: #### [id number] ####[facility] ([facility])[address] [place], [place] [address]Tkeeahoetvr (Bld) [#/Vol] 6.50 10*3/uLNormal1.60-7.60UnDunlap Memorial HospitalComment on above: Performed By: #### [id number] ####[facility] ([facility])[address] [place], [place] [address]Bnnlctyondr/100 WBC (Bld)84.5 %High40.0-72.0UnDunlap Memorial HospitalComment on above:Performed By: #### [id number] ####[facility] ([facility])[address] [place] [address]SNEQ (PER 100 WBCS) BY AUTOMATED COUNT0.0 %Wahnao1RaxyblowvmDunlap Memorial HospitalComment on above: Performed By: #### [id number] ####[facility] ([facility])[address] [place] [address]TZSDCOWAW (10*3/UL) IN BLOOD AUTOMATED SFTWN103 10*3/uLNormal 150-400UnDunlap Memorial HospitalComment on above:Performed By: #### [id number] ####[facility] ([facility])[address] [place] [address]DTU (Bld) [#/Vol]2.71 10*6/uLLow3.80-5.00UnDunlap Memorial HospitalComment on above:Performed By: #### [id number] ####[facility] ([facility])[address] [place] [address]WRN (Bld) [#/Vol]7.69 10*3/uLNormal4.00-10.60UnDunlap Memorial HospitalComment on above:Performed By: #### [id number] ####[facility] ([facility])[address] [place] [address]SHHFKJANCcz 02-07-2024 Magnesium [Mass/Vol]3.7 mg/dLHigh1.9-2.7UnDunlap Memorial Hospital Comment on above:Performed By: #### [id number] ####[facility] ([facility])[address] [place] [address]WIET GLUCOSE METER UNSOLICITED RESULTSon 02-07-2024 Glucose [Mass/Vol]141 mg/eNNird80-048IwtjecokheDunlap Memorial HospitalComment on above:Order Comment: Waived Testing in the ED is performed under the ED CLIA certificate #[id number].Result Comment: pashpqi2Xgizsfmxd By: #### [id number] ####[facility] ([facility])[address] [place] [address]Qhqoryd [Mass/Vol]133 mg/kCNvus49-802GhqrroiaznDunlap Memorial HospitalComment on above:Order Comment: Waived Testing in the ED is performed under the ED CLIA certificate #[id number].Result Comment: uarntqx9Wwknrpytl By: #### [id number] ####[facility] ([facility])[address] [place] [address]Uacdrhl [Mass/Vol]127 mg/aIOcvr90-782AumlgxflwrDunlap Memorial HospitalComment on above:Order Comment: Waived Testing in the ED is performed under the ED CLIA certificate #[id number].Result Comment: inpboyv3Cknrgpnle By: #### [id number] ####[facility] ([facility])[address] [place] [address]66ir 02-06-2024 30NormalUniversity [facility]30NormalUniversity [facility]itan HospitalBASIC METABOLIC PANELon 65-69-5450Amyjo gap [Moles/Vol]17 mmol/LNormal7-[address] [facility] HospitalComment on above:Performed By: #### [id number] ####[facility] ([facility])[address] [place], [place] [address]Jtvrkyn [Mass/Vol]8.2 mg/dLLow8.6-10.3UnDunlap Memorial HospitalComment on above:Performed By: #### [id number] ####[facility] ([facility])[address] [place], [place] [address]Zmuwtlas [Moles/Vol]100 mmol/BSrxrsr54-008NgohamlrsrDunlap Memorial HospitalComment on above:Performed By: #### [id number] ####[facility] ([facility])[address] [place], [place] [address]GE7 [Moles/Vol]25 mmol/LNormal 21-31UnDunlap Memorial HospitalComment on above:Performed By: #### [id number] ####[facility] ([facility])[address] [place], [place] [address]Jnfwcrjdfw [Mass/Vol]3.14 mg/dLHigh0.60-1.20UnDunlap Memorial HospitalComment on above:Performed By: #### [id number] ####[facility] ([facility])[address] [place] [address]XPUFALKWYU FILTRATION RATE ML/MIN/1.73 SQ M.TXWEZWLPU65.4 mL/min/1.73m*2Low>60.0UnDunlap Memorial HospitalComment on above:Result Comment: [facility]???s estimated glomerular filtration rate (eGFR) will [...] By: #### [id number] ####[facility] ([facility])[address] [place] [address]Haoazfy [Mass/Vol]97 mg/eDOgghwi46-912KngieqrmsoDunlap Memorial HospitalComment on above:Performed By: #### [id number] ####[facility] ([facility])[address] [place] [address]Lqsbvnwxy [Moles/Vol]4.3 mmol/LNormal3.5-5.1UnDunlap Memorial HospitalComment on above:Performed By: #### [id number] ####[facility] ([facility])[address] [place] [address] Sodium [Moles/Vol]138 mmol/MMmjvla979-173QbjgaheihbDunlap Memorial Hospital Comment on above:Performed By: #### [id number] ####[facility] ([facility])[address] [place] [address]Xlrw nitrogen [Mass/Vol]37 mg/dLHigh7-25UnDunlap Memorial HospitalComment on above:Performed By: #### [id number] ####[facility] ([facility])[address] [place], [place] [address]AHMX NITROGEN/CREATININE (MASS RATIO) IN SER/PLAS11.8NormalUniversSelect Medical Specialty Hospital - YoungstownComment on above:Performed By: #### [id number] ####[facility] ([facility])[address] [place] [address]GKC WITH AUTO DIFFERENTIALon 96-00-1848Kibvzijua (Bld) [#/Vol]0.01 10*3/uLNormal0.00-0.20UnDunlap Memorial HospitalComment on above:Performed By: #### [id number] ####[facility] ([facility])[address] [place], [place] [address]Uddkyeeke/100 WBC (Bld)0.1 %Normal0.0-1.0UnDunlap Memorial HospitalComment on above:Performed By: #### [id number] ####[facility] ([facility])[address] [place], [place] [address]Hfmrsdqhdix (Bld) [#/Vol]0.00 10*3/uL Normal0.00-0.50UnDunlap Memorial HospitalComment on above:Performed By: #### [id number] ####[facility] ([facility])[address] [place] [address] Eosinophils/100 WBC (Bld)0.0 %Normal0.0-6.0UnDunlap Memorial Hospital Comment on above:Performed By: #### [id number] ####[facility] ([facility])[address] [place], [place] [address]Llgzuboteej distribution width (RBC) [Ratio]16.2 % High11.5-15.0UnDunlap Memorial HospitalComment on above:Performed By: #### [id number] ####[facility] ([facility])[address] [place] [address] ERYTHROCYTE MEAN CORPUSCULAR HEMOGLOBIN CONCENTRATION (G/DL) BY OHKYLCKBI32.7 g/dLLow32.0-35.0UnDunlap Memorial HospitalComment on above:Performed By: #### [id number] ####[facility] ([facility])[address] [place], [place] [address]Ywtlvughtb (Bld) [Volume fraction]25.7 %Low36.0-48.0UnDunlap Memorial HospitalComment on above:Performed By: #### [id number] ####[facility] ([facility])[address] [place], [place] [address]Hvwiqvnthw (Bld) [Mass/Vol]7.9 g/dLLow 12.0-15.0UnDunlap Memorial HospitalComment on above:Performed By: #### [id number] ####[facility] ([facility])[address] [place], [place] [address]Fuehfnum granulocytes (Bld) [#/Vol]0.07 10*3/uLNormal0.00-0.20UnDunlap Memorial HospitalComment on above:Performed By: #### [id number] ####[facility] ([facility])[address] [place], [place] [address]Qmozfvvp granulocytes/100 WBC (Bld)0.9 %Normal0.0-1.0UnDunlap Memorial HospitalComment on above:Performed By: #### [id number] ####[facility] ([facility])[address] [place] [address] Lymphocytes (Bld) [#/Vol]0.46 10*3/uLLow1.20-4.00UnDunlap Memorial HospitalComment on above:Performed By: #### [id number] ####[facility] ([facility])[address] [place], [place] [address]Qpummnoroxw/100 WBC (Bld)6.2 %Low 20.0-45.0UnDunlap Memorial HospitalComment on above:Performed By: #### [id number] ####[facility] ([facility])[address] [place], [place] [address]KPH (RBC) [Entitic mass]27.9 fgAyryvs25.0-33.0UnDunlap Memorial Hospital Comment on above:Performed By: #### [id number] ####[facility] ([facility])[address] [place] [address]CBQ (RBC) [Entitic vol]90.8 uFEosgwo69.0-98.[address] [facility] HospitalComment on above:Performed By: #### [id number] ####[facility] ([facility])[address] [place] [address]Yuktpuffy (Bld) [#/Vol]0.19 10*3/uLNormal0.10-1.00UnDunlap Memorial HospitalComment on above:Performed By: #### [id number] ####[facility] ([facility])[address] [place] [address]Cearrghur/100 WBC (Bld)2.6 %Low5.0-12.0UnDunlap Memorial HospitalComment on above:Performed By: #### [id number] ####[facility] ([facility])[address] [place] [address]Ngkrohftxyl (Bld) [#/Vol]6.77 10*3/uL Normal1.60-7.60UnDunlap Memorial HospitalComment on above:Performed By: #### [id number] ####[facility] ([facility])[address] [place] [address] Neutrophils/100 WBC (Bld)91.1 %High40.0-72.0UnDunlap Memorial Hospital Comment on above:Performed By: #### [id number] ####[facility] ([facility])[address] [place] [address]KEZN (PER 100 WBCS) BY AUTOMATED COUNT0.0 %Normal[address] [facility] HospitalComment on above:Performed By: #### [id number] ####[facility] ([facility])[address] [place] [address]SGTWTRQVX (10*3/UL) IN BLOOD AUTOMATED OBOSM440 10*3/oNIpsvty573-681TvnlomxanrDunlap Memorial HospitalComment on above:Performed By: #### [id number] ####[facility] ([facility])[address] [place] [address]TLO (Bld) [#/Vol]2.83 10*6/uLLow 3.80-5.00UnDunlap Memorial HospitalComment on above:Performed By: #### [id number] ####[facility] ([facility])[address] [place] [address]GFP (Bld) [#/Vol]7.43 10*3/uLNormal4.00-10.60UnDunlap Memorial Hospital Comment on above:Performed By: #### [id number] ####[facility] ([facility])[address] [place] [address]LEBWOOJtb 96-24-0648KCEECPLFjtpwfFwvjqonkno of [place] Medical CenterCREATININE, URINE, RANDOMon 57-84-3079Pcggrwgpvn (U) [Mass/Vol]82.0 mg/oKHueomf38-766MhdrxqdussDunlap Memorial HospitalComment on above:Performed By: #### [id number] ####[facility] ([facility])[address] [place] [address]RAFLRT ACID, PLASMAon 12-28-5507IRPPHZM (MMOL/L) IN SER/PLAS 0.4 mmol/LLow0.5-2.2UnDunlap Memorial HospitalComment on above: Performed By: #### [id number] ####[facility] ([facility])[address] [place] [address]JPWDLKYGEjs 33-78-9136Gxugxlhzf [Mass/Vol]3.6 mg/dLHigh1.9-2.[address] [facility] HospitalComment on above:Performed By: #### [id number] ####[facility] ([facility])[address] [place] [id number] 59-25-8438TBDQVAWLYcvweoWgnyhcgjgx of [place] Medical CenterNURSNOTENormal [facility] Charles HospitalPOCT GLUCOSE METER UNSOLICITED RESULTSon 52-03-1633Cpuooau [Mass/Vol]150 mg/sAOlly77-939AzplzdywewDunlap Memorial HospitalComment on above:Order Comment: Waived Testing in the ED is performed under the ED CLIA certificate #[id number].Result Comment: wefo4Wmoefxmmx By: #### [id number] ####[facility] (BEAKER)[address] [place] [address] Glucose [Mass/Vol]195 mg/yFXmvn10-305GuuonuhowcDunlap Memorial HospitalComment on above:Order Comment: Waived Testing in the ED is performed under the ED CLIA certificate #[id number].Result Comment: zwjcozn5Defaifbnk By: #### [id number] ####[facility] (BEAKER)[address] [place], [place] [address]Omxordn [Mass/Vol]123 mg/eWUhas75-969FicbplqzemDunlap Memorial HospitalComment on above:Order Comment: Waived Testing in the ED is performed under the ED CLIA certificate #[id number].Result Comment: xmdbqgc6Mnvocvgvv By: #### [id number] ####[facility] (BEAKER)[address] [place], [place] [address]Lofctdz [Mass/Vol]130 mg/eOBeaf40-795UmtbwzszdgMercy Health St. Charles HospitalComment on above:Order Comment: Waived Testing in the ED is performed under the ED CLIA certificate #[id number].Result Comment: vehb3Hfrjggpft By: #### [id number] ####[facility] ([facility])[address] [place], [place] [address]Hmqdtdo [Mass/Vol]122 mg/jPLwtu87-978GfagvjtrvjDunlap Memorial HospitalComment on above:Order Comment: Waived Testing in the ED is performed under the ED CLIA certificate #[id number].Result Comment: eyhk8Edgdniczg By: #### [id number] ####[facility] (BE[facility]ER)[address] [place], [place] [address]TMIPOW, URINE, RANDOMon 25-87-2014Gusbpw (U) [Moles/Vol]45 mmol/LNormalUnDunlap Memorial HospitalComment on above:Performed By: #### [id number] ####[facility] ([facility])[address] [place], [place] [address]BDZWNFIXNX WITH MICROSCOPICon 23-22-7894OJCWWZNWS, TOTAL PRESENCE IN URINENegativeNormsdNegativeUnDunlap Memorial HospitalComment on above:Performed By: #### [id number] ####[facility] ([facility])[address] [place], [place] [address]Jatlxcw (U)CloudyAbnormal ClearUnDunlap Memorial HospitalComment on above:Performed By: #### [id number] ####[facility] ([facility])[address] [place], [place] [address]Xympg (U)YellowNormalColorless, Yellow, Light-YellowUnDunlap Memorial HospitalComment on above:Performed By: #### [id number] ####[facility] ([facility])[address] [place], [place] [address]MPVMRJF (MG/DL) IN URINENormalNormal NormalUnDunlap Memorial HospitalComment on above:Performed By: #### [id number] ####[facility] ([facility])[address] [place] [address] HEMOGLOBIN PRESENCE IN URINEModerateAbnormsdNegMercy Health St. Elizabeth Boardman HospitalComment on above:Performed By: #### [id number] ####[facility] ([facility])[address] [place], [place] [address]Qadkqss Ql (U)TraceAbnormalNegative [facility] St[facility] Charles HospitalComment on above:Performed By: #### [id number] ####[facility] ([facility])[address] [place], [place] [address]YKVKYKDRA ESTERASE PRESENCE IN URINE BY TEST STRIPNegativeNormalNegativeUnDunlap Memorial HospitalComment on above:Performed By: #### [id number] ####[facility] ([facility])[address] [place], [place] [address]ETPVH (#/LPF) IN URINE SEDIMENTOccasionalNormalNone Seen, Occasional, FewUnDunlap Memorial HospitalComment on above:Performed By: #### [id number] ####[facility] ([facility])[address] [place] [address]DAYKGKC PRESENCE IN URINENegative NormalNegativeUnDunlap Memorial HospitalComment on above:Performed By: #### [id number] ####[facility] ([facility])[address] [place] [address]yE (U)5.5 [pH]Normal5.0-8.0[facility] St[facility] Charles HospitalComment on above: Performed By: #### [id number] ####[facility] ([facility])[address] [place] [address]Hokgrvu (U) [Mass/Vol]30 mg/dLAbnormalNegativeUnDunlap Memorial HospitalComment on above:Performed By: #### [id number] ####[facility] ([facility])[address] [place] [address]CMZ (#/HPF) IN URINE SEDIMENT>20AbnormalNone Seen, 0-2UnDunlap Memorial HospitalComment on above:Performed By: #### [id number] ####[facility] ([facility])[address] [place] [address]Lfaqhors gravity (U) [Rel density]>1.603Dyuo7.010-1.[address] Charles HospitalComment on above:Performed By: #### [id number] ####[facility] ([facility])[address] [place], [place] [address]GQJZAYHD EPITHELIAL CELLS (#/LPF) IN URINE SEDIMENTOccasionalNormalNone Seen, Occasional, FewUnDunlap Memorial HospitalComment on above:Performed By: #### [id number] ####[facility] ([facility])[address] [place] [address] UROBILINOGEN (MG/DL) IN URINENormalNormalNormalUniversSelect Medical Specialty Hospital - YoungstownComment on above:Performed By: #### [id number] ####[facility] (BEAKER)[address] [place], [place] [address]XUN (LEUKOCYTE) (#/HPF) IN URINE SEDIMENT6-10AbnormalNone Seen, 0-2UnDunlap Memorial HospitalComment on above:Performed By: #### [id number] ####[facility] (BEAKER)[address] [place], [place] [address]0dw 18-65-517595UymujuTqprdzlurb of [facility] [facility] Dudnai44 NormalUnDunlap Memorial HospitalANESon 23-01-7431VCYVEkwdsbFfgsyejnov of [place] Medical CenterBASIC METABOLIC PANELon 27-53-2824Nixrg gap [Moles/Vol] 13 mmol/LNormal7-20[facility] St[facility] Charles HospitalComment on above:Performed By: #### [id number] ####[facility] (BEAKER)[address] [place] [address] Calcium [Mass/Vol]8.1 mg/dLLow8.6-10.3UnDunlap Memorial HospitalComment on above:Performed By: #### [id number] ####[facility] (BEAKER)[address] [place], [place] [address]Lgwcvstg [Moles/Vol]95 mmol/HIpl32-775EnxypbnvcgDunlap Memorial HospitalComment on above:Performed By: #### [id number] ####[facility] (BEAKER)[address] [place], [place] [address]NB3 [Moles/Vol]32 mmol/PRvbp75-[address] [facility] HospitalComment on above:Performed By: #### [id number] ####[facility] (BEAKER)[address] [place], [place] [address]Uztvuovbmv [Mass/Vol]2.79 mg/dLHigh0.60-1.20UnDunlap Memorial HospitalComment on above:Performed By: #### [id number] ####[facility] (BEAKER)[address] [place], [place] [address]ZRDAXLWDEM FILTRATION RATE ML/MIN/1.73 SQ M.OISTZHLVQ23.6 mL/min/1.73m*2Low>60.0UnDunlap Memorial HospitalComment on above:Result Comment: [facility]???s estimated glomerular filtration rate (eGFR) will [...] By: #### [id number] ####[facility] ([facility])[address] [place], [place] [address]Eprhems [Mass/Vol]95 mg/pWAovpkc71-668CnzxxafxxiDunlap Memorial HospitalComment on above:Performed By: #### [id number] ####[facility] ([facility])[address] [place], [place] [address]Vtydsxdma [Moles/Vol]3.6 mmol/LNormal3.5-5.1UnDunlap Memorial HospitalComment on above:Performed By: #### [id number] ####[facility] ([facility])[address] [place] [address] Sodium [Moles/Vol]136 mmol/MQjqark554-979IxgrxqwtukDunlap Memorial Hospital Comment on above:Performed By: #### [id number] ####[facility] ([facility])[address] [place], [place] [address]Owbu nitrogen [Mass/Vol]29 mg/dLHigh7-25UnDunlap Memorial HospitalComment on above:Performed By: #### [id number] ####[facility] ([facility])[address] [place], [place] [address]ZQXR NITROGEN/CREATININE (MASS RATIO) IN SER/PLAS10.4NormalUniversSelect Medical Specialty Hospital - YoungstownComment on above:Performed By: #### [id number] ####[facility] ([facility])[address] [place], [place] [address]BZP WITH AUTO DIFFERENTIALon 84-90-4892Qdpaoaevp (Bld) [#/Vol]0.02 10*3/uLNormal0.00-0.20UnDunlap Memorial HospitalComment on above:Performed By: #### [id number] ####[facility] ([facility])[address] [place], [place] [address]Lceuxcdeh/100 WBC (Bld)0.3 %Normal0.0-1.0UnDunlap Memorial HospitalComment on above:Performed By: #### [id number] ####[facility] ([facility])[address] [place], [place] [address]Pxpnhjxufae (Bld) [#/Vol]0.30 10*3/uL Normal0.00-0.50UnDunlap Memorial HospitalComment on above:Performed By: #### [id number] ####[facility] ([facility])[address] [place] [address] Eosinophils/100 WBC (Bld)4.0 %Normal0.0-6.0UnDunlap Memorial Hospital Comment on above:Performed By: #### [id number] ####[facility] ([facility])[address] [place], [place] [address]Krvnhgtytvg distribution width (RBC) [Ratio]16.3 % High11.5-15.0UnDunlap Memorial HospitalComment on above:Performed By: #### [id number] ####[facility] ([facility])[address] [place] [address] ERYTHROCYTE MEAN CORPUSCULAR HEMOGLOBIN CONCENTRATION (G/DL) BY CHOKQBBEQ84.2 g/dLLow32.0-35.0UnDunlap Memorial HospitalComment on above:Performed By: #### [id number] ####[facility] ([facility])[address] [place], [place] [address]Lyxagallai (Bld) [Volume fraction]24.8 %Low36.0-48.0UnDunlap Memorial HospitalComment on above:Performed By: #### [id number] ####[facility] (BEAKER)[address] [place], [place] [address]Fxvhimockq (Bld) [Mass/Vol]7.5 g/dLLow 12.0-15.0UnDunlap Memorial HospitalComment on above:Performed By: #### [id number] ####[facility] ([facility])[address] [place] [address]Vqwylqow granulocytes (Bld) [#/Vol]0.04 10*3/uLNormal0.00-0.20UnDunlap Memorial HospitalComment on above:Performed By: #### [id number] ####[facility] ([facility])[address] [place] [address]Ejajqirm granulocytes/100 WBC (Bld)0.5 %Normal0.0-1.0UnDunlap Memorial HospitalComment on above:Performed By: #### [id number] ####[facility] ([facility])[address] [place] [address] Lymphocytes (Bld) [#/Vol]0.58 10*3/uLLow1.20-4.00UnDunlap Memorial HospitalComment on above:Performed By: #### [id number] ####[facility] ([facility])[address] [place] [address]Jwglyeuzzkb/100 WBC (Bld)7.7 %Low 20.0-45.0UnDunlap Memorial HospitalComment on above:Performed By: #### [id number] ####[facility] ([facility])[address] [place] [address]LVV (RBC) [Entitic mass]27.4 drXutxvx14.0-33.0UnDunlap Memorial Hospital Comment on above:Performed By: #### [id number] ####[facility] ([facility])[address] [place] [address]YUZ (RBC) [Entitic vol]90.5 mMOoxkpb30.0-98.[address] [facility] HospitalComment on above:Performed By: #### [id number] ####[facility] ([facility])[address] [place] [address]Aszagatqe (Bld) [#/Vol]0.52 10*3/uLNormal0.10-1.00UnDunlap Memorial HospitalComment on above:Performed By: #### [id number] ####[facility] ([facility])[address] [place] [address]Wvacbzqnm/100 WBC (Bld)6.9 %Normal5.0-12.0UnDunlap Memorial HospitalComment on above:Performed By: #### [id number] ####[facility] ([facility])[address] [place] [address]Ebauofuedyx (Bld) [#/Vol] 6.03 10*3/uLNormal1.60-7.60UnDunlap Memorial HospitalComment on above: Performed By: #### [id number] ####[facility] ([facility])[address] [place] [address]Zjrycwbagia/100 WBC (Bld)80.6 %High40.0-72.0UnDunlap Memorial HospitalComment on above:Performed By: #### [id number] ####[facility] ([facility])[address] [place] [address]VJNU (PER 100 WBCS) BY AUTOMATED COUNT0.0 %Odzqqo4PnvwvjhqlbDunlap Memorial HospitalComment on above: Performed By: #### [id number] ####[facility] ([facility])[address] [place] [address]KJTLFMDIA (10*3/UL) IN BLOOD AUTOMATED ZIGCE443 10*3/uLNormal 150-400UnDunlap Memorial HospitalComment on above:Performed By: #### [id number] ####[facility] ([facility])[address] [place] [address]XSZ (Bld) [#/Vol]2.74 10*6/uLLow3.80-5.00UnDunlap Memorial HospitalComment on above:Performed By: #### [id number] ####[facility] ([facility])[address] [place], [place] [address]MZG (Bld) [#/Vol]7.49 10*3/uLNormal4.00-10.60UnDunlap Memorial HospitalComment on above:Performed By: #### [id number] ####[facility] ([facility])[address] [place] [address]GFKRTEPca 02-05-2024 CONSULTNormalUniversSelect Medical Specialty Hospital - YoungstownHPon 60-84-4560KQV&P reviewed. The patient was examined and there are no changes to the H&P.NormalUnDunlap Memorial HospitalMAGNESIUMon 42-88-3488Qiempvebz [Mass/Vol]3.6 mg/dLHigh 1.9-2.7UnDunlap Memorial HospitalComment on above:Performed By: #### [id number] ####[facility] ([facility])[address] [place], [place] [address]XJ BRAIN WO CONTRASTon 95-98-2644GI BRAIN WO CONTRASTInvalid Interpretation Code [facility] HospitalNURSNOTEon 28-27-8761NNVQEXDJAcgalsOgkwlurtdu of [facility] CenterNTH[facility] [[email or web address]]NOTEReport called to Kayleigh MELGAR all questions answered.NormalUnDunlap Memorial HospitalOPNOTEon 63-02-0132AMBUTX NormalUnDunlap Memorial HospitalPOCT GLUCOSE METER UNSOLICITED RESULTS on 45-12-7644Zsehdeq [Mass/Vol]117 mg/pKCcev79-764YrytpdcviiDunlap Memorial HospitalComment on above:Order Comment: Waived Testing in the ED is performed under the ED CLIA certificate #[id number].Result Comment: tgxg0Rlglnfnxp By: #### [id number] ####[facility] ([facility])[address] [place] [address] Glucose [Mass/Vol]102 mg/yAVnokrm40-032VajdeixyqnDunlap Memorial Hospital Comment on above:Order Comment: Waived Testing in the ED is performed under the ED CLIA certificate #[id number].Result Comment: leulerPerformed By: #### [id number] ####[facility] ([facility])[address] [place], [place] [address]Sykkiem [Mass/Vol]100 mg/hCGlafld40-639IpvfczzlofDunlap Memorial HospitalComment on above:Order Comment: Waived Testing in the ED is performed under the ED CLIA certificate #[id number].Result Comment: svandygPerformed By: #### [id number] ####[facility] ([facility])[address] [place], [place] [address]Okcehyz [Mass/Vol]114 mg/tIBdlm70-450IesxcgtkcgDunlap Memorial HospitalComment on above:Order Comment: Waived Testing in the ED is performed under the ED CLIA certificate #[id number].Result Comment: agoettiPerformed By: #### [id number] ####[facility] ([facility])[address] [place], [place] [address]IXGUgr 41-79-9178BRCGQmjoltHuobtguzfb of [place] Medical CenterANTI-XA (HEPARIN LEVEL)on 09-56-9873ZKAHLAN UNFRACTIONATED (U/ML) IN PPP BY CHROMOGENIC METHOD>1.00 Critically high0.3-0.7UnDunlap Memorial HospitalComment on above:Result Comment: Rivaroxaban and Apixaban will interfere with the anti Xa assay used to monitor UFH and LMWH.Performed By: #### [id number] ####[facility] ([facility])[address] [place], [place] [address]PEQMcp 24-52-2541JMHFOBZTK PARTIAL THROMBOPLASTIN TIME IN PPP BY COAGULATION ASSAY45.7 KrprlgqLkgp32.0-35.[address] [facility] HospitalComment on above:Order Comment: Check aPTT every 6 hours while on heparin infusion, or per protocol.Result Comment: Clinical significance of the APTT is questionable in the presence of heparin. Performed By: #### [id number] ####[facility] ([facility])[address] [place], [place] [address]FDTWKHQRU PARTIAL THROMBOPLASTIN TIME IN PPP BY COAGULATION ASSAY40.3 NnskvpmXiuo12.0-35.0UnDunlap Memorial HospitalComment on above:Order Comment: Check aPTT every 6 hours while on heparin infusion, or per protocol.Result Comment: Clinical significance of the APTT is questionable in the presence of heparin.Performed By: #### [id number] ####[facility] ([facility])[address] [place], [place] [address]HFMHT METABOLIC PANELon 02-04-2024 Anion gap [Moles/Vol]15 mmol/LNormal7-20UnDunlap Memorial Hospital Comment on above:Performed By: #### [id number] ####[facility] ([facility])[address] [place], [place] [address]Semaceu [Mass/Vol]8.0 mg/dLLow8.6-10.3UnDunlap Memorial HospitalComment on above:Performed By: #### [id number] ####[facility] ([facility])[address] [place], [place] [address]Lussgezv [Moles/Vol]96 mmol/BIeq02-928HxvmrjwrwdDunlap Memorial HospitalComment on above:Performed By: #### [id number] ####[facility] ([facility])[address] [place], [place] [address]KD9 [Moles/Vol]29 mmol/MVugfps59-79IjiqxjuklmDunlap Memorial HospitalComment on above:Performed By: #### [id number] ####[facility] ([facility])[address] [place], [place] [address]Fycspkoxmn [Mass/Vol]1.87 mg/dLHigh0.60-1.20UnDunlap Memorial HospitalComment on above:Performed By: #### [id number] ####[facility] ([facility])[address] [place], [place] [address]GATSDYOUIR FILTRATION RATE ML/MIN/1.73 SQ M.OSKKVAHZI89.9 mL/min/1.73m*2Low>60.0UnDunlap Memorial HospitalComment on above:Result Comment: [facility]???s estimated glomerular filtration rate (eGFR) will [...] By: #### [id number] ####[facility] ([facility])[address] [place] [address]Hnzyhsw [Mass/Vol]95 mg/kODkbedf85-598OqlghmfgclDunlap Memorial HospitalComment on above:Performed By: #### [id number] ####[facility] ([facility])[address] [place] [address]Inuihyydf [Moles/Vol]4.0 mmol/LNormal3.5-5.1UnDunlap Memorial HospitalComment on above:Performed By: #### [id number] ####[facility] ([facility])[address] [place], [place] [address]Jfjqbb [Moles/Vol]136 mmol/L Gkjvet019-300ZljqsiyresDunlap Memorial HospitalComment on above:Performed By: #### [id number] ####[facility] ([facility])[address] [place], [place] [address]Aqyi nitrogen [Mass/Vol]24 mg/dLNormal7-25UnDunlap Memorial HospitalComment on above:Performed By: #### [id number] ####[facility] ([facility])[address] [place], [place] [address]EMCH NITROGEN/CREATININE (MASS RATIO) IN SER/PLAS12.8Normal [facility] HospitalComment on above:Performed By: #### [id number] ####[facility] ([facility])[address] [facility] [place] [address]ZFL WITH AUTO DIFFERENTIALon 44-67-6347Eqhfopvra (Bld) [#/Vol]0.02 10*3/uLNormal0.00-0.[address] [facility] HospitalComment on above:Performed By: #### [id number] ####[facility] (BEAKER)[address] [place], [place] [address]Ebzjqzqyz/100 WBC (Bld)0.2 %Normal0.0-1.0UnDunlap Memorial HospitalComment on above: Performed By: #### [id number] ####[facility] (AKER)[address] [place] [address]Hiexnrcdxgm (Bld) [#/Vol]0.18 10*3/uLNormal0.00-0.[address] [facility] HospitalComment on above:Performed By: #### [id number] ####[facility] ([facility])[address] [place], [place] [address]Gsfutkdfjug/100 WBC (Bld)2.2 %Normal0.0-6.0UnDunlap Memorial HospitalComment on above: Performed By: #### [id number] ####[facility] ([facility])[address] [place], [place] [address]Shubzgxsjby distribution width (RBC) [Ratio]16.1 %High 11.5-15.0UnDunlap Memorial HospitalComment on above:Performed By: #### [id number] ####[facility] ([facility])[address] [place] [address] ERYTHROCYTE MEAN CORPUSCULAR HEMOGLOBIN CONCENTRATION (G/DL) BY VGJLXIPPK66.4 g/dLLow32.0-35.0UnDunlap Memorial HospitalComment on above:Performed By: #### [id number] ####[facility] ([facility]ER)[address] [place], [place] [address]Akqvrdabkj (Bld) [Volume fraction]28.0 %Low36.0-48.0UnDunlap Memorial HospitalComment on above:Performed By: #### [id number] ####[facility] ([facility])[address] [place], [place] [address]Omundaodkt (Bld) [Mass/Vol]8.8 g/dLLow 12.0-15.0UnDunlap Memorial HospitalComment on above:Performed By: #### [id number] ####[facility] ([facility]ER)[address] [place], [place] [address]Fgnekukw granulocytes (Bld) [#/Vol]0.04 10*3/uLNormal0.00-0.20UnDunlap Memorial HospitalComment on above:Performed By: #### [id number] ####[facility] ([facility])[address] [place], [place] [address]Adsddatz granulocytes/100 WBC (Bld)0.5 %Normal0.0-1.0UnDunlap Memorial HospitalComment on above:Performed By: #### [id number] ####[facility] ([facility])[address] [place] [address] Lymphocytes (Bld) [#/Vol]0.52 10*3/uLLow1.20-4.00UnDunlap Memorial HospitalComment on above:Performed By: #### [id number] ####[facility] ([facility])[address] [place], [place] [address]Hgezotvqxct/100 WBC (Bld)6.5 %Low 20.0-45.0UnDunlap Memorial HospitalComment on above:Performed By: #### [id number] ####[facility] ([facility])[address] [place], [place] [address]KSD (RBC) [Entitic mass]28.3 mcVyblgv53.0-33.0UnDunlap Memorial Hospital Comment on above:Performed By: #### [id number] ####[facility] ([facility])[address] [place], [place] [address]JET (RBC) [Entitic vol]90.0 iXWrqufp46.0-98.[address] [facility] HospitalComment on above:Performed By: #### [id number] ####[facility] ([facility])[address] [place], [place] [address]Pldnbmnoe (Bld) [#/Vol]0.65 10*3/uLNormal0.10-1.00UnDunlap Memorial HospitalComment on above:Performed By: #### [id number] ####[facility] ([facility])[address] [place] [address]Oyjdmqiom/100 WBC (Bld)8.1 %Normal5.0-12.0[facility] Charles HospitalComment on above:Performed By: #### [id number] ####[facility] ([facility])[address] [place] [address]Lnsfdkjynbf (Bld) [#/Vol] 6.61 10*3/uLNormal1.60-7.60UnDunlap Memorial HospitalComment on above: Performed By: #### [id number] ####[facility] ([facility])[address] [place] [address]Modykdhxptn/100 WBC (Bld)82.5 %High40.0-72.0UnDunlap Memorial HospitalComment on above:Performed By: #### [id number] ####[facility] ([facility])[address] [place] [address]PVHJ (PER 100 WBCS) BY AUTOMATED COUNT0.0 %Rykedd4GisbfnutabDunlap Memorial HospitalComment on above: Performed By: #### [id number] ####[facility] ([facility])[address] [place] [address]VZNOQFBTA (10*3/UL) IN BLOOD AUTOMATED [id number] 10*3/uLNormal 150-400UnDunlap Memorial HospitalComment on above:Performed By: #### [id number] ####[facility] ([facility])[address] [place] [address]GUM (Bld) [#/Vol]3.11 10*6/uLLow3.80-5.00UnDunlap Memorial HospitalComment on above:Performed By: #### [id number] ####[facility] ([facility])[address] [place] [address]VHG (Bld) [#/Vol]8.02 10*3/uLNormal4.00-10.60UnDunlap Memorial HospitalComment on above:Performed By: #### [id number] ####[facility] ([facility])[address] [facility], [place] [address]VV BRAIN PERFUSIONon [id number] BRAIN PERFUSIONInvalid Interpretation CodeUnDunlap Memorial HospitalCT HEAD WO IV CONTRASTon [id number] HEAD WO IV CONTRASTNormal [facility] Charles HospitalCTA HEAD W IV CONTRASTon [id number] HEAD W IV CONTRASTNormalUniversSelect Medical Specialty Hospital - YoungstownCTA NECK W IV CONTRASTon 91-06-9082FNN NECK W IV CONTRASTInvalid Interpretation CodeUnDunlap Memorial HospitalMAGNESIUMon 60-37-3223Jajzjfmzt [Mass/Vol]3.1 mg/dLHigh1.9-2.[address] [facility] HospitalComment on above:Performed By: #### [id number] ####[facility] ([facility])[address] [place], [place] [address]CMCA GLUCOSE METER UNSOLICITED RESULTSon 58-60-4429Xfzcrzi [Mass/Vol]172 mg/zDZxzl10-[address] Charles HospitalComment on above:Order Comment: Waived Testing in the ED is performed under the ED CLIA certificate #[id number].Result Comment: [id number] By: #### [id number] ####[facility] ([facility])[address] H[place]Us[place], [place] [address]Atzhldd [Mass/Vol]113 mg/rCDdqm37-089IolfxvvzyeDunlap Memorial HospitalComment on above:Order Comment: Waived Testing in the ED is performed under the ED CLIA certificate #[id number].Result Comment: [email or web address] Performed By: #### [id number] ####[facility] ([facility])[address] [place] [place], [place] [address]XRQLAN BLOOD GAS WITH IONIZED CALCIUMon 65-85-6803Kvnc excess Calc (BldV) [Moles/Vol]10.1 mmol/LNormalUnDunlap Memorial Hospital Comment on above:Performed By: #### [id number] ####[facility] [id number] [place] [address] USACALCIUM IONIZED (MMOL/L) IN BLOOD1.18 mmol/L Normal1.15-1.33UnDunlap Memorial HospitalComment on above:Performed By: #### [id number] ####[facility] [id number] [place] [address] [place] CO2 (BldV) [Partial pressure]62 mm[Hg]Ucsd54-37ClkdzbzmjqDunlap Memorial HospitalComment on above:Performed By: #### [id number] ####[facility] [id number] [place] [address] USAHCO3 (Bld) [Moles/Vol]37.5 mmol/L NormalUnDunlap Memorial HospitalComment on above:Performed By: #### [id number] ####[facility] [id number] [place] [address] USAOxygen (BldV) [Partial pressure]49 mm[Hg]Yuka45-92ItrxqgdfpeDunlap Memorial Hospital Comment on above:Performed By: #### [id number] ####[facility] [id number] [place] [address] USAOXYGEN SATURATION (%) IN VENOUS BLOOD79.9 %High 65.0-75.0UnDunlap Memorial HospitalComment on above:Performed By: #### [id number] ####[facility] RES[facility] [id number] [place] [address] USAPH OF VENOUS BLOOD7.68Hoogox2.31-7.41UnDunlap Memorial HospitalComment on above:Performed By: #### [id number] ####[facility] [id number] [place] [address] SQU56wh 40-03-776475ShurijDaahvnbpsl of [place] [facility] Dcndin62OdvhixJqanalmvopPremier Health [facility] 31-50-1299JILZULWAY PARTIAL THROMBOPLASTIN TIME IN PPP BY COAGULATION ASSAY91.2 XvhbokgNxzv66.0-35.[address] Charles HospitalComment on above:Order Comment: Check aPTT every 6 hours while on heparin infusion, or per protocol.Result Comment: Clinical significance of the APTT is questionable in the presence of heparin. Performed By: #### [id number] ####[facility] ([facility])[address] [place], [place] [address]WADKDPOM BLOOD GAS WITH CO-OXIMETRYon 34-97-8806Xgyl excess Calc (Bld) [Moles/Vol]8.6 mmol/LHigh-2.0-3.0UnDunlap Memorial Hospital Comment on above:Performed By: #### [id number] ####[facility] [id number] [place] [address] USACARBOXYHEMOGLOBIN/HEMOGLOBIN TOTAL % IN BLOOD 1.6 %Normal0.0-3.0UnDunlap Memorial HospitalComment on above:Performed By: #### [id number] ####[facility] [id number] [place] [address] USACO2 (Bld) [Partial pressure]47 mm[Hg]Sbxwlo94-48TobgmzyuolDunlap Memorial HospitalComment on above:Performed By: #### [id number] ####[facility] [id number] [place] [address] USADEOXYGENATED HEMOGLOBIN IN BLOOD2.3 %Normal1-5UnDunlap Memorial HospitalComment on above:Performed By: #### [id number] ####[facility] [id number] [place] [address] [place] HCO3 (Bld) [Moles/Vol]33.4 mmol/LHigh21.0-28.0UnDunlap Memorial HospitalComment on above:Performed By: #### [id number] ####[facility] [id number] [place] [address] USAHemoglobin (Bld) [Mass/Vol]9.4 g/dL Low11.7-17.4UnDunlap Memorial HospitalComment on above:Performed By: #### [id number] ####[facility] [id number] [place] [address] [facility] JVJ0MkvdagSbcgvgtwtuSelect Medical Specialty Hospital - YoungstownComment on above:Performed By: #### [id number] ####[facility] [id number] [place] [address] [place] METHEMOGLOBIN/100 IN BLOOD0.5 %Normal0.0-1.5UnDunlap Memorial Hospital Comment on above:Performed By: #### [id number] ####[facility]IR[facility] [id number] [place] [address] USAOxygen (Bld) [Partial pressure]72 mm[Hg]Low 83-100UnDunlap Memorial HospitalComment on above:Performed By: #### [id number] ####[facility] [id number] [place] [address] USAOXYGEN SATURATION (%) IN ARTERIAL BLOOD97.7 %Cpxelb12.0-98.0UnDunlap Memorial HospitalComment on above:Performed By: #### [id number] ####[facility] [id number] [place] [address] USAOXYGENATED HEMOGLOBIN IN BLOOD95.7 %High90.0-95.0UnDunlap Memorial HospitalComment on above:Performed By: #### [id number] ####[facility] [id number] [place] [address] [place] pH (Bld)7.46 [pH]High7.35-7.45UnDunlap Memorial HospitalComment on above:Performed By: #### [id number] ####[facility] RES[facility]IR[facility] [id number] [place] [address] USASOURCE OF OXYGENNasal cannulaNormalUniversity [facility] Samaritan HospitalComment on above:Performed By: #### [id number] ####[facility]IR[facility] [id number] [place] [address] USABASIC METABOLIC PANELon 02-03-2024 Anion gap [Moles/Vol]14 mmol/LNormal7-20UnDunlap Memorial Hospital Comment on above:Performed By: #### [id number] ####[facility] ([facility])[address] [place] [place] [place] [address]Yjwiehz [Mass/Vol]8.3 mg/dLLow8.6-10.3UnDunlap Memorial HospitalComment on above:Performed By: #### [id number] ####[facility] ([facility])[address] [place] [address]Zamrhovj [Moles/Vol]94 mmol/HMoj69-426MdrwljaowlDunlap Memorial HospitalComment on above:Performed By: #### [id number] ####[facility] ([facility])[address] [place] [address]PT9 [Moles/Vol]31 mmol/NGaqjav60-86NsvovmbqzwDunlap Memorial HospitalComment on above:Performed By: #### [id number] ####[facility] ([facility])[address] [place] [address]Zrezlrrlnr [Mass/Vol]1.51 mg/dLHigh0.60-1.20UnDunlap Memorial HospitalComment on above:Performed By: #### [id number] ####[facility] ([facility])[address] [place], [place] [address]WJVUSYVEBG FILTRATION RATE ML/MIN/1.73 SQ M.IEYZIDLOL10.7 mL/min/1.73m*2Low>60.0UnDunlap Memorial HospitalComment on above:Result Comment: [facility]???s estimated glomerular filtration rate (eGFR) will [...] By: #### [id number] ####[facility] ([facility])[address] [place] [address]Dzanrrk [Mass/Vol]155 mg/rCAsba21-878PcdryzqhuiDunlap Memorial HospitalComment on above:Performed By: #### [id number] ####[facility] ([facility])[address] [place] [address]Excndlxru [Moles/Vol]4.0 mmol/LNormal3.5-5.1UnDunlap Memorial HospitalComment on above:Performed By: #### [id number] ####[facility] (BEAKER)[address] [place], [place] [address]Slqeno [Moles/Vol]135 mmol/LLow 136-145UnDunlap Memorial HospitalComment on above:Performed By: #### [id number] ####[facility] ([facility])[address] [place], [place] [address]Olea nitrogen [Mass/Vol]19 mg/dLNormal7-25UnDunlap Memorial HospitalComment on above:Performed By: #### [id number] ####[facility] ([facility]ER)[address] [place], [place] [address]SSMD NITROGEN/CREATININE (MASS RATIO) IN SER/PLAS12.6Normal [facility] HospitalComment on above:Performed By: #### [id number] ####[facility] ([facility]ER)[address] [place], [place] [address]Putux gap [Moles/Vol]18 mmol/LNormal7-20UnDunlap Memorial HospitalComment on above:Performed By: #### [id number] ####[facility] (BE[facility]ER)[address] [place], [place] [address]Yejbltj [Mass/Vol]9.0 mg/dLNormal8.6-10.3UnDunlap Memorial HospitalComment on above:Performed By: #### [id number] ####[facility] (BEAKER)[address] [place], [place] [address]Vstzybeu [Moles/Vol]96 mmol/YJfy30-[address] [facility] HospitalComment on above:Performed By: #### [id number] ####[facility] (BE[facility]ER)[address] [place], [place] [address]OK2 [Moles/Vol] 26 mmol/MZoxjvh79-69NncnvewaknDunlap Memorial HospitalComment on above: Performed By: #### [id number] ####[facility] (BE[facility]ER)[address] [place], [place] [address]Hodzkkvzvq [Mass/Vol]1.55 mg/dLHigh0.60-1.20UnDunlap Memorial HospitalComment on above:Performed By: #### [id number] ####[facility] ([facility])[address] [place] [address]XKCVNHBQYO FILTRATION RATE ML/MIN/1.73 SQ M.TSCRXFIQE61.7 mL/min/1.73m*2Low>60.0UnDunlap Memorial Hospital Comment on above:Result Comment: [facility]???s estimated glomerular filtration rate (eGFR) will [...] By: #### [id number] ####[facility] ([facility])[address] [place] [address]Mebniyt [Mass/Vol]90 mg/uAXnndre23-930FeehfhoyvuDunlap Memorial HospitalComment on above:Performed By: #### [id number] ####[facility] ([facility])[address] [place] [address]Phpjyqoqj [Moles/Vol]4.6 mmol/LNormal3.5-5.1UnDunlap Memorial HospitalComment on above:Performed By: #### [id number] ####[facility] ([facility])[address] [place] [address]Bwuhgl [Moles/Vol]135 mmol/LLow 136-145UnDunlap Memorial HospitalComment on above:Performed By: #### [id number] ####[facility] ([facility])[address] [place], [place] [address]Cnqt nitrogen [Mass/Vol]20 mg/dLNormal7-25UnDunlap Memorial HospitalComment on above:Performed By: #### [id number] ####[facility] ([facility])[address] [place], [place] [address]FXNW NITROGEN/CREATININE (MASS RATIO) IN SER/PLAS12.9Normal [facility] HospitalComment on above:Performed By: #### [id number] ####[facility] ([facility])[address] [place] [address]YCZBQWG, IONIZED on 60-13-9[address]YIDODSE IONIZED (MMOL/L) IN BLOOD1.13 mmol/LLow1.15-1.33UnDunlap Memorial HospitalComment on above:Performed By: #### CALCIUM, IONIZED ####[facility] [id number] [place] [address] USACBC WITH AUTO DIFFERENTIALon 31-50-4717Hlhqrvvbe (Bld) [#/Vol]0.02 10*3/uLNormal0.00-0.[address] [facility] HospitalComment on above:Performed By: #### [id number] ####[facility] ([facility])[address] [place], [place] [address]Jwowdorva/100 WBC (Bld)0.3 %Normal0.0-1.0UnDunlap Memorial HospitalComment on above: Performed By: #### [id number] ####[facility] ([facility])[address] [place], [place] [address]Rehbtspznsy (Bld) [#/Vol]0.22 10*3/uLNormal0.00-0.[address] [facility] HospitalComment on above:Performed By: #### [id number] ####[facility] ([facility])[address] [place], [place] [address]Qbiywcftigx/100 WBC (Bld)3.4 %Normal0.0-6.0UnDunlap Memorial HospitalComment on above: Performed By: #### [id number] ####[facility] ([facility])[address] [place], [place] [address]Shwwyyajtdj distribution width (RBC) [Ratio]16.0 %High 11.5-15.0UnDunlap Memorial HospitalComment on above:Performed By: #### [id number] ####[facility] (BEAKER)[address] [place] [address] ERYTHROCYTE MEAN CORPUSCULAR HEMOGLOBIN CONCENTRATION (G/DL) BY AARHQZGVT28.5 g/dLLow32.0-35.0UnDunlap Memorial HospitalComment on above:Performed By: #### [id number] ####[facility] ([facility])[address] [place], [place] [address]Pgiuhztuil (Bld) [Volume fraction]26.6 %Low36.0-48.0UnDunlap Memorial HospitalComment on above:Performed By: #### [id number] ####[facility] ([facility])[address] [place], [place] [address]Zlkkarjgdq (Bld) [Mass/Vol]8.1 g/dLLow 12.0-15.0UnDunlap Memorial HospitalComment on above:Performed By: #### [id number] ####[facility] ([facility])[address] [place], [place] [address]Qvvfpghz granulocytes (Bld) [#/Vol]0.05 10*3/uLNormal0.00-0.20UnDunlap Memorial HospitalComment on above:Performed By: #### [id number] ####[facility] ([facility])[address] [place], [place] [address]Rnpjnvli granulocytes/100 WBC (Bld)0.8 %Normal0.0-1.0UnDunlap Memorial HospitalComment on above:Performed By: #### [id number] ####[facility] ([facility])[address] [place] [address] Lymphocytes (Bld) [#/Vol]0.45 10*3/uLLow1.20-4.00UnDunlap Memorial HospitalComment on above:Performed By: #### [id number] ####[facility] (BEAKER)[address] [place], [place] [address]Ewqevygqfbr/100 WBC (Bld)6.9 %Low 20.0-45.0UnDunlap Memorial HospitalComment on above:Performed By: #### [id number] ####[facility] ([facility])[address] [place], [place] [address]PDE (RBC) [Entitic mass]27.9 zlEiuent29.0-33.0UnDunlap Memorial Hospital Comment on above:Performed By: #### [id number] ####[facility] ([facility])[address] [place], [place] [address]CXI (RBC) [Entitic vol]91.7 hVMfmvjw96.0-98.[address] [facility] HospitalComment on above:Performed By: #### [id number] ####[facility] ([facility])[address] [place], [place] [address]Thzxbwnuf (Bld) [#/Vol]0.46 10*3/uLNormal0.10-1.00UnDunlap Memorial HospitalComment on above:Performed By: #### [id number] ####[facility] ([facility])[address] [place], [place] [address]Wvjyfvsxp/100 WBC (Bld)7.1 %Normal5.0-12.0UnDunlap Memorial HospitalComment on above:Performed By: #### [id number] ####[facility] ([facility])[address] [place], [place] [address]Fnucjzilmyp (Bld) [#/Vol] 5.31 10*3/uLNormal1.60-7.60UnDunlap Memorial HospitalComment on above: Performed By: #### [id number] ####[facility] ([facility])[address] [place], [place] [address]Zfuenfefwqd/100 WBC (Bld)81.5 %High40.0-72.0UnDunlap Memorial HospitalComment on above:Performed By: #### [id number] ####[facility] ([facility])[address] [place], [place] [address]HMTI (PER 100 WBCS) BY AUTOMATED COUNT0.0 %Xbbfah3DvnhisjeyaDunlap Memorial HospitalComment on above: Performed By: #### [id number] ####[facility] ([facility])[address] [place], [place] [address]JKNBVHBUB (10*3/UL) IN BLOOD AUTOMATED [id number] 10*3/uLNormal 150-400UnDunlap Memorial HospitalComment on above:Performed By: #### [id number] ####[facility] ([facility])[address] [place], [place] [address]OYW (Bld) [#/Vol]2.90 10*6/uLLow3.80-5.00UnDunlap Memorial HospitalComment on above:Performed By: #### [id number] ####[facility] ([facility])[address] [place], [place] [address]XCB (Bld) [#/Vol]6.51 10*3/uLNormal4.00-10.60UnDunlap Memorial HospitalComment on above:Performed By: #### [id number] ####[facility] ([facility])[address] [place], [place] [address]Trpuxwuvl (Bld) [#/Vol] 0.02 10*3/uLNormal0.00-0.20UnDunlap Memorial HospitalComment on above: Performed By: #### [id number] ####[facility] ([facility])[address] [place], [place] [address]Ztfqmnsbm/100 WBC (Bld)0.2 %Normal0.0-1.0UnDunlap Memorial HospitalComment on above:Performed By: #### [id number] ####[facility] ([facility])[address] [place], [place] [address]Hpszsqivuur (Bld) [#/Vol]0.33 10*3/uL Normal0.00-0.50UnDunlap Memorial HospitalComment on above:Performed By: #### [id number] ####[facility] (BEAKER)[address] [place] [address] Eosinophils/100 WBC (Bld)3.8 %Normal0.0-6.0UnDunlap Memorial Hospital Comment on above:Performed By: #### [id number] ####[facility] (BE[facility]ER)[address] [place], [place] [address]Wlrgenjbyxy distribution width (RBC) [Ratio]16.2 % High11.5-15.0UnDunlap Memorial HospitalComment on above:Performed By: #### [id number] ####[facility] ([facility])[address] [place] [address] ERYTHROCYTE MEAN CORPUSCULAR HEMOGLOBIN CONCENTRATION (G/DL) BY JEHHHIFXL50.4 g/dLLow32.0-35.0UnDunlap Memorial HospitalComment on above:Performed By: #### [id number] ####[facility] ([facility])[address] [place], [place] [address]Jnqdtiwqkf (Bld) [Volume fraction]30.9 %Low36.0-48.0UnDunlap Memorial HospitalComment on above:Performed By: #### [id number] ####[facility] ([facility])[address] [place], [place] [address]Lwyipvvosb (Bld) [Mass/Vol]9.7 g/dLLow 12.0-15.0UnDunlap Memorial HospitalComment on above:Performed By: #### [id number] ####[facility] ([facility])[address] [place], [place] [address]Llfayocx granulocytes (Bld) [#/Vol]0.06 10*3/uLNormal0.00-0.20UnDunlap Memorial HospitalComment on above:Performed By: #### [id number] ####[facility] ([facility])[address] [place], [place] [address]Lsuajohl granulocytes/100 WBC (Bld)0.7 %Normal0.0-1.0UnDunlap Memorial HospitalComment on above:Performed By: #### [id number] ####[facility] (BEAKER)[address] [place] [address] Lymphocytes (Bld) [#/Vol]1.07 10*3/uLLow1.20-4.00UnDunlap Memorial HospitalComment on above:Performed By: #### [id number] ####[facility] ([facility])[address] [place] [address]Rditbmkkcln/100 WBC (Bld)12.4 %Low 20.0-45.0UnDunlap Memorial HospitalComment on above:Performed By: #### [id number] ####[facility] ([facility])[address] [place], [place] [address]PNG (RBC) [Entitic mass]28.0 orYybleh59.0-33.0UnDunlap Memorial Hospital Comment on above:Performed By: #### [id number] ####[facility] ([facility])[address] [place], [place] [address]RKF (RBC) [Entitic vol]89.0 vLHkvfhv21.0-98.[address] [facility] HospitalComment on above:Performed By: #### [id number] ####[facility] ([facility])[address] [place], [place] [address]Hejhjzagx (Bld) [#/Vol]0.51 10*3/uLNormal0.10-1.00UnDunlap Memorial HospitalComment on above:Performed By: #### [id number] ####[facility] ([facility])[address] [place], [place] [address]Vvqxtuvqy/100 WBC (Bld)5.9 %Normal5.0-12.0UnDunlap Memorial HospitalComment on above:Performed By: #### [id number] ####[facility] ([facility])[address] [place], [place] [address]Gimjqmgxxll (Bld) [#/Vol] 6.63 10*3/uLNormal1.60-7.60UnDunlap Memorial HospitalComment on above: Performed By: #### [id number] ####[facility] ([facility])[address] [place], [place] [address]Puqgqimwsyu/100 WBC (Bld)77.0 %High40.0-72.0UnDunlap Memorial HospitalComment on above:Performed By: #### [id number] ####[facility] ([facility])[address] [place] [address]JCDY (PER 100 WBCS) BY AUTOMATED COUNT0.0 %Ugeqox1QuodlkzudmDunlap Memorial HospitalComment on above: Performed By: #### [id number] ####[facility] ([facility])[address] [place] [address]PTJCQVDGV (10*3/UL) IN BLOOD AUTOMATED ZDDSQ622 10*3/uLNormal 150-400UnDunlap Memorial HospitalComment on above:Performed By: #### [id number] ####[facility] ([facility])[address] [place], [place] [address]AME (Bld) [#/Vol]3.47 10*6/uLLow3.80-5.00UnDunlap Memorial HospitalComment on above:Performed By: #### [id number] ####[facility] ([facility])[address] [place] [address]MAG (Bld) [#/Vol]8.62 10*3/uLNormal4.00-10.60UnDunlap Memorial HospitalComment on above:Performed By: #### [id number] ####[facility] ([facility])[address] [place], [place] [address]VAWCVOPTHELLD METABOLIC PANELon 54-49-3068Adxpojj [Mass/Vol]3.5 g/dLNormal3.5-5.7UnDunlap Memorial HospitalComment on above:Performed By: #### [id number] ####[facility] ([facility])[address] [place], [place] [address]RCY [Catalytic activity/Vol]96 U/L Tqdpub06-254LrvhchxsvtDunlap Memorial HospitalComment on above:Performed By: #### [id number] ####[facility] ([facility])[address] [place], [place] [address]EZH [Catalytic activity/Vol]5 U/LLow7-52UnDunlap Memorial HospitalComment on above:Performed By: #### [id number] ####[facility] (BEAKER)[address] [place], [place] [address]Fptja gap [Moles/Vol]14 mmol/LNormal7-20UnDunlap Memorial HospitalComment on above:Performed By: #### [id number] ####[facility] ([facility])[address] [place], [place] [address]GHG [Catalytic activity/Vol]11 U/LLow 13-39UnDunlap Memorial HospitalComment on above:Performed By: #### [id number] ####[facility] ([facility])[address] [place], [place] [address]Ibyudygvx [Mass/Vol]0.8 mg/dLNormal0.3-1.0UnDunlap Memorial HospitalComment on above:Performed By: #### [id number] ####[facility] ([facility])[address] [place], [place] [address]Zxmtjmd [Mass/Vol]9.2 mg/dLNormal8.6-10.3UnDunlap Memorial HospitalComment on above:Performed By: #### [id number] ####[facility] ([facility])[address] [place], [place] [address]Jlaivlgo [Moles/Vol]95 mmol/FVbu54-[address] [facility] HospitalComment on above:Performed By: #### [id number] ####[facility] ([facility])[address] [place], [place] [address]WP3 [Moles/Vol] 31 mmol/SCyckea59-62MmianzehyhDunlap Memorial HospitalComment on above: Performed By: #### [id number] ####[facility] ([facility])[address] [place], [place] [address]Blednjbwwv [Mass/Vol]1.54 mg/dLHigh0.60-1.20UnDunlap Memorial HospitalComment on above:Performed By: #### [id number] ####[facility] ([facility])[address] [place], [place] [address]TIMCFXGWWS FILTRATION RATE ML/MIN/1.73 SQ M.WHDHGFIML11.9 mL/min/1.73m*2Low>60.0UnDunlap Memorial Hospital Comment on above:Result Comment: [facility]???s estimated glomerular filtration rate (eGFR) will [...] By: #### [id number] ####[facility] ([facility])[address] [place], [place] [address]Wrbxiis [Mass/Vol]89 mg/sPTwioid91-733BofxhaoqscDunlap Memorial HospitalComment on above:Performed By: #### [id number] ####[facility] ([facility])[address] [place] [address]Tfynaxfqy [Moles/Vol]4.1 mmol/LNormal3.5-5.1UnDunlap Memorial HospitalComment on above:Performed By: #### [id number] ####[facility] ([facility])[address] [place], [place] [address]Ssytmsz [Mass/Vol]6.2 g/dLNormal 6.0-8.3UnDunlap Memorial HospitalComment on above:Performed By: #### [id number] ####[facility] ([facility])[address] [place], [place] [address]Grmkxq [Moles/Vol]136 mmol/EUhpfan426-399OgqeezwdfxDunlap Memorial HospitalComment on above:Performed By: #### [id number] ####[facility] ([facility])[address] [place], [place] [address]Bdwp nitrogen [Mass/Vol]20 mg/dLNormal7-25UnDunlap Memorial HospitalComment on above:Performed By: #### [id number] ####[facility] ([facility])[address] [place] [address]CHBM NITROGEN/CREATININE (MASS RATIO) IN SER/PLAS13.0NormalUniOhio State University Wexner Medical CenterComment on above: Performed By: #### [id number] ####[facility] ([facility])[address] [place] [address]ASXYPZWjg 54-16-0729JIEQCVXYbthzpFatetjucvw of [place] Medical CenterCTA ABDOMEN PELVIS W IV CONTRASTon 05-01-3112XZR ABDOMEN PELVIS W IV CONTRASTNormal [facility] Charles HospitalLACTIC ACID WITH 4 HOUR REFLEXon 02-03-2024 LACTATE (MMOL/L) IN SER/PLAS0.7 mmol/LNormal0.5-2.2UnDunlap Memorial HospitalComment on above:Performed By: #### [id number] ####[facility] ([facility])[address] [place] [address]CAPLLCR (MMOL/L) IN SER/PLAS1.4 mmol/L Normal0.5-2.2UnDunlap Memorial HospitalComment on above:Performed By: #### [id number] ####[facility] ([facility])[address] [place] [address] MAGNESIUMon 35-13-9458Xixqynyfe [Mass/Vol]2.3 mg/dLNormal1.9-2.7UnDunlap Memorial HospitalComment on above:Performed By: #### [id number] ####[facility] ([facility])[address] [place] [address]Xbotlebew [Mass/Vol]2.3 mg/dLNormal1.9-2.7UnDunlap Memorial HospitalComment on above:Performed By: #### [id number] ####[facility] ([facility])[address] [place] [address] NURSNOTEon 50-66-4260TTWCZLRDEgijwjUejwzxspsu of [facility] Medical CenterPHOSPHORUS on 93-11-3921Sozytfrfk [Mass/Vol]4.8 mg/dLNormal2.5-5.0UnDunlap Memorial HospitalComment on above:Performed By: #### [id number] ####[facility] ([facility])[address] [place], [place] [address]MWZX GLUCOSE METER UNSOLICITED RESULTS on 43-73-5880Wejdamj [Mass/Vol]105 mg/jGPtwamh39-204QfjwebpvgzDunlap Memorial HospitalComment on above:Order Comment: Waived Testing in the ED is performed under the ED CLIA certificate #[id number].Result Comment: [id number] By: #### [id number] ####[facility] ([facility])[address] [place] [address] Glucose [Mass/Vol]110 mg/aPLelr25-315MdnjuihhxyDunlap Memorial HospitalComment on above:Order Comment: Waived Testing in the ED is performed under the ED CLIA certificate #[id number].Result Comment: [id number] By: #### [id number] ####[facility] ([facility])[address] [place], [place] [address]TNTTOPTVB, WHOLE BLOODon 02-77-2425Heynnynnz [Moles/Vol]4.2 mmol/LNormal3.5-5.1UnDunlap Memorial HospitalComment on above:Performed By: #### POTASSIUM, WHOLE BLOOD ####[facility] [id number] [place] [address] USASODIUM, WHOLE BLOODon 49-71-7125FUHVFG, WHOLE GFZDG036Cuh270-289SxzvdishktDunlap Memorial HospitalComment on above:Performed By: #### SODIUM, WHOLE BLOOD ####[facility] [id number] [place] [address] USATROPONIN Ion 02-03-2024 Troponin I.cardiac [Mass/Vol]0.05 ng/mLHigh0.00-0.04UnDunlap Memorial HospitalComment on above:Performed By: #### [id number] ####[facility] ([facility])[address] [place], [place] [address]Fgozsjfd I.cardiac [Mass/Vol]0.06 ng/mLHigh0.00-0.04UnDunlap Memorial HospitalComment on above:Performed By: #### [id number] ####[facility] ([facility])[address] [place] [address] Troponin I.cardiac [Mass/Vol]0.05 ng/mLHigh0.00-0.04UnDunlap Memorial HospitalComment on above:Performed By: #### [id number] ####[facility] ([facility])[address] [place], [place] [address]EDLQ AND SCREENon 75-04-4983OV SCREEN NegativeNormalUniOhio State University Wexner Medical CenterComment on above:Performed By: #### [id number] ####[facility],ABO group Nom (Bld)ONormalUnDunlap Memorial HospitalComment on above:Performed By: #### [id number] ####[facility],RH TYPE IN BLOODPositiveNormalUniOhio State University Wexner Medical CenterComment on above: Performed By: #### [id number] ####[facility],30on 35-80-299807DgqihkOlfaxmtzmx of [place] [facility] Eaeisl77EhoyxkHtilohtarfOhio State University Wexner Medical CenterARTERIAL BLOOD GAS WITH IONIZED CALCIUMon 57-67-6486Tvza excess Calc (Bld) [Moles/Vol]3.2 mmol/LHigh-2.0-3.0UnDunlap Memorial HospitalComment on above:Order Comment: Bipap 12/6Performed By: #### [id number] ####[facility] [id number] [place] [address] USACALCIUM IONIZED (MMOL/L) IN BLOOD1.19 mmol/L Normal1.15-1.33UnDunlap Memorial HospitalComment on above:Order Comment: Bipap 12/6Performed By: #### [id number] ####[facility] [id number] [place] [address] USACO2 (Bld) [Partial pressure]45 mm[Hg]Normal 35-48UnDunlap Memorial HospitalComment on above:Order Comment: Bipap 12/6Performed By: #### [id number] ####[facility] [id number] [place] [address] VZFBWM939 %NormalUnDunlap Memorial HospitalComment on above:Order Comment: Bipap 12/6Performed By: #### [id number] ####[facility] [id number] [place] [address] USAHCO3 (Bld) [Moles/Vol] 28.5 mmol/LHigh21.0-28.0UnDunlap Memorial HospitalComment on above: Order Comment: Bipap 12/6Performed By: #### [id number] ####[facility] [id number] [place] [address] USAOxygen (Bld) [Partial pressure]187 mm[Hg]Ytsn11-814JmoaluxiseDunlap Memorial HospitalComment on above:Order Comment: Bipap 12/6Performed By: #### [id number] ####[facility] [id number] [place] [address] USAOXYGEN SATURATION (%) IN ARTERIAL NHLZG116.0 % High94.0-98.0UnDunlap Memorial HospitalComment on above:Order Comment: Bipap 12/6Performed By: #### [id number] ####[facility] [id number] [place] [place] [address] USAPEEP6 prE5VWudjbcVmlkbfrkecKindred Hospital Dayton Comment on above:Order Comment: Bipap 12/6Performed By: #### [id number] ####[facility] [id number] [place] [address] USApH (Bld)7.41 [pH]Normal 7.35-7.45UnDunlap Memorial HospitalComment on above:Order Comment: Bipap 12/6Performed By: #### [id number] ####[facility] [id number] [place] [address] USARESPIRATORY [id number] State University Wexner Medical CenterComment on above:Order Comment: Bipap 12/6Performed By: #### [id number] ####[facility] [id number] [place] [address] USASOURCE OF OXYGENBi-PAPNormalUniversity TriHealth Good Samaritan HospitalComment on above:Order Comment: Bipap 01/29Performed By: #### [id number] ####[facility] [id number] [place] [address] USAB-TYPE NATRIURETIC PEPTIDEon 02-02-2024 Natriuretic peptide B (Bld) [Mass/Vol]1109 pg/mLHigh0-100UnDunlap Memorial HospitalComment on above:Performed By: #### [id number] ####[facility] ([facility])[address] [place], [place] [address]RWI WITH AUTO DIFFERENTIALon 28-75-9320Rckuxbwxt (Bld) [#/Vol]0.03 10*3/uLNormal0.00-0.20UnDunlap Memorial HospitalComment on above:Performed By: #### [id number] ####[facility] ([facility])[address] [place], [place] [address]Eoqtixior/100 WBC (Bld)0.4 %Normal 0.0-1.0UnDunlap Memorial HospitalComment on above:Performed By: #### [id number] ####[facility] ([facility])[address] [place] [address] Eosinophils (Bld) [#/Vol]0.24 10*3/uLNormal0.00-0.50UnDunlap Memorial HospitalComment on above:Performed By: #### [id number] ####[facility] ([facility])[address] [place], [place] [address]Bzsvdbqduft/100 WBC (Bld)3.0 %Normal 0.0-6.0UnDunlap Memorial HospitalComment on above:Performed By: #### [id number] ####[facility] ([facility])[address] [place] [address] Erythrocyte distribution width (RBC) [Ratio]16.5 %High11.5-15.0UnDunlap Memorial HospitalComment on above:Performed By: #### [id number] ####[facility] ([facility])[address] [place], [place] [address]UYLAPLIAVNY MEAN CORPUSCULAR HEMOGLOBIN CONCENTRATION (G/DL) BY LBQFOCUEP68.4 g/dLLow32.0-35.[address] Charles HospitalComment on above:Performed By: #### [id number] ####[facility] ([facility])[address] [place], [place] [address]Kzsskuirqv (Bld) [Volume fraction]29.3 %Low36.0-48.0UnDunlap Memorial HospitalComment on above:Performed By: #### [id number] ####[facility] ([facility])[address] [place], [place] [address]Atcwgohdfi (Bld) [Mass/Vol]8.9 g/dLLow12.0-15.0UnDunlap Memorial HospitalComment on above:Performed By: #### [id number] ####[facility] ([facility])[address] [place], [place] [address]Wubfdwgj granulocytes (Bld) [#/Vol]0.07 10*3/uLNormal0.00-0.20UnDunlap Memorial Hospital Comment on above:Performed By: #### [id number] ####[facility] ([facility])[address] [place], [place] [address]Urqtppby granulocytes/100 WBC (Bld)0.9 %Normal 0.0-1.0UnDunlap Memorial HospitalComment on above:Performed By: #### [id number] ####[facility] ([facility])[address] [place] [address] Lymphocytes (Bld) [#/Vol]1.34 10*3/uLNormal1.20-4.00UnDunlap Memorial HospitalComment on above:Performed By: #### [id number] ####[facility] ([facility])[address] [place], [place] [address]Vxvwjehyxrh/100 WBC (Bld)16.5 %Low 20.0-45.0UnDunlap Memorial HospitalComment on above:Performed By: #### [id number] ####[facility] ([facility])[address] [place] [address]UQD (RBC) [Entitic mass]28.2 eiVuerfb28.0-33.0UnDunlap Memorial Hospital Comment on above:Performed By: #### [id number] ####[facility] ([facility])[address] [place], [place] [address]JTL (RBC) [Entitic vol]92.7 cSLeptyj51.0-98.[address] Charles HospitalComment on above:Performed By: #### [id number] ####[facility] ([facility])[address] [place], [place] [address]Vszomggub (Bld) [#/Vol]0.52 10*3/uLNormal0.10-1.00UnDunlap Memorial HospitalComment on above:Performed By: #### [id number] ####[facility] ([facility])[address] [place], [place] [address]Zzkymeujg/100 WBC (Bld)6.4 %Normal5.0-12.0UnDunlap Memorial HospitalComment on above:Performed By: #### [id number] ####[facility] ([facility])[address] [place], [place] [address]Zkeewogqsnb (Bld) [#/Vol] 5.91 10*3/uLNormal1.60-7.60UnDunlap Memorial HospitalComment on above: Performed By: #### [id number] ####[facility] ([facility])[address] [place] [address]Wyilykotpqr/100 WBC (Bld)72.8 %High40.0-72.0UnDunlap Memorial HospitalComment on above:Performed By: #### [id number] ####[facility] ([facility])[address] [place] [address]DJMN (PER 100 WBCS) BY AUTOMATED COUNT0.0 %Odemkj9GhpmkpfutfDunlap Memorial HospitalComment on above: Performed By: #### [id number] ####[facility] ([facility])[address] [place], [place] [address]CXBALQNHV (10*3/UL) IN BLOOD AUTOMATED SIPFA634 10*3/uLNormal 150-400UnDunlap Memorial HospitalComment on above:Performed By: #### [id number] ####[facility] ([facility])[address] [place], [place] [address]IZW (Bld) [#/Vol]3.16 10*6/uLLow3.80-5.00UnDunlap Memorial HospitalComment on above:Performed By: #### [id number] ####[facility] ([facility])[address] [place], [place] [address]ULG (Bld) [#/Vol]8.11 10*3/uLNormal4.00-10.60UnDunlap Memorial HospitalComment on above:Performed By: #### [id number] ####[facility] ([facility])[address] [place], [place] [address]VOXRVFMLZYPUM METABOLIC PANELon 08-44-0627Cbcagie [Mass/Vol]3.4 g/dLLow3.5-5.7UnDunlap Memorial HospitalComment on above:Performed By: #### [id number] ####[facility] ([facility])[address] [place], [place] [address]CCE [Catalytic activity/Vol]90 U/L Qqlmoh82-583JgcbtedvbkDunlap Memorial HospitalComment on above:Performed By: #### [id number] ####[facility] ([facility])[address] [place], [place] [address]KKD [Catalytic activity/Vol]5 U/LLow7-52UnDunlap Memorial HospitalComment on above:Performed By: #### [id number] ####[facility] ([facility])[address] [place], [place] [address]Xhgbd gap [Moles/Vol]9 mmol/LNormal7-20UnDunlap Memorial HospitalComment on above:Performed By: #### [id number] ####[facility] ([facility])[address] [place], [place] [address]FEF [Catalytic activity/Vol]11 U/LLow 13-39UnDunlap Memorial HospitalComment on above:Performed By: #### [id number] ####[facility] ([facility])[address] [place], [place] [address]Deynjtaaw [Mass/Vol]0.5 mg/dLNormal0.3-1.0UnDunlap Memorial HospitalComment on above:Performed By: #### [id number] ####[facility] ([facility])[address] [place], [place] [address]Lfpihur [Mass/Vol]8.3 mg/dLLow8.6-10.3UnDunlap Memorial HospitalComment on above:Performed By: #### [id number] ####[facility] ([facility])[address] [place], [place] [address]Oahnezdr [Moles/Vol]101 mmol/LNormal 98-107UnDunlap Memorial HospitalComment on above:Performed By: #### [id number] ####[facility] ([facility])[address] [place], [place] [address]LO3 [Moles/Vol]26 mmol/XGqndlc50-25SapdirimhqDunlap Memorial HospitalComment on above:Performed By: #### [id number] ####[facility] ([facility])[address] [place], [place] [address]Adiywhziqa [Mass/Vol]1.28 mg/dLHigh0.60-1.20UnDunlap Memorial HospitalComment on above:Performed By: #### [id number] ####[facility] ([facility])[address] [place], [place] [address]GBHWDMZISU FILTRATION RATE ML/MIN/1.73 SQ M.MPSXOWSEK25.4 mL/min/1.73m*2Low>60.0UnDunlap Memorial HospitalComment on above:Result Comment: [facility]???s estimated glomerular filtration rate (eGFR) will [...] By: #### [id number] ####[facility] ([facility])[address] [place], [place] [address]Fjbhfgw [Mass/Vol]95 mg/pSWqgjwv51-630KaonqdbecqDunlap Memorial HospitalComment on above:Performed By: #### [id number] ####[facility] ([facility])[address] [place], [place] [address]Ygtryofji [Moles/Vol]4.4 mmol/LNormal3.5-5.1UnDunlap Memorial HospitalComment on above:Performed By: #### [id number] ####[facility] ([facility])[address] [place], [place] [address]Wkjdmsn [Mass/Vol]5.7 g/dLLow 6.0-8.3UnDunlap Memorial HospitalComment on above:Performed By: #### [id number] ####[facility] ([facility])[address] [place], [place] [address]Iqwrft [Moles/Vol]132 mmol/YXst044-141RlrdjrchkqDunlap Memorial HospitalComment on above:Performed By: #### [id number] ####[facility] ([facility])[address] [place], [place] [address]Quio nitrogen [Mass/Vol]21 mg/dLNormal7-25UnDunlap Memorial HospitalComment on above:Performed By: #### [id number] ####[facility] ([facility])[address] [place], [place] [address]OCDO NITROGEN/CREATININE (MASS RATIO) IN SER/PLAS16.4NormalUniversSelect Medical Specialty Hospital - YoungstownComment on above: Performed By: #### [id number] ####[facility] ([facility])[address] [place], [place] [address]YRHEHGQtq 61-93-4458VWEUWLRJwmtnmLkvhqaauta of [facility] CONSULTNormalUniversity [facility] Samaritan HospitalCONSULTNormalUniversity [facility]aritan HospitalHPon 22-79-0178GWNgfglhVragnhoinr [facility] HPNormalUniversSelect Medical Specialty Hospital - YoungstownLIPID PANELon 93-33-6255OGCH/HDL3.3 mg/dLNormalUniOhio State University Wexner Medical CenterComment on above:Performed By: #### [id number] ####[facility] ([facility])[address] [place] [address] Cholesterol [Mass/Vol]148 mg/qRCwywuk471-075JkfbyimhveDunlap Memorial Hospital Comment on above:Performed By: #### [id number] ####[facility] ([facility])[address] [place], [place] [address]Kvggxfclt [Mass/Vol]100 mg/gRBiusej21-431VnhusjrzykDunlap Memorial HospitalComment on above:Result Comment: TRIGLYCERIDE REFERENCE RANGE:20 YEARS AND OLDER CARDIOVASCULAR RISKLESS THAN 150 mg/dL LOW IODN765 TO 199 mg/dL BORDERLINE DQEM005 mg/dL AND GREATER HIGH RISKPerformed By: #### [id number] ####[facility] ([facility])[address] [place], [place] [address]Fkxqtchyk [Mass/Vol]83 mg/dLNormal0-160UnDunlap Memorial HospitalComment on above:Performed By: #### [id number] ####[facility] ([facility])[address] [place], [place] [address]Jchmzsoha [Mass/Vol]45 mg/kXVulmwl20-50FqzeqnenkvDunlap Memorial HospitalComment on above:Performed By: #### [id number] ####[facility] ([facility])[address] [place], [place] [address]WMO HDL CHOL. (LDL+VLDL)103Normal [facility] HospitalComment on above:Performed By: #### [id number] ####[facility] ([facility])[address] [place] [address]BRYYC VLDL-C20 mg/dLNormal0-40UnDunlap Memorial HospitalComment on above:Performed By: #### [id number] ####[facility] ([facility])[address] [place] [address] MAGNESIUMon 32-22-5687Kurmlyufo [Mass/Vol]2.6 mg/dLNormal1.9-2.7UnDunlap Memorial HospitalComment on above:Performed By: #### [id number] ####[facility] ([facility])[address] [place] [address]UMSCHDNS COUNTon 97-06-9570VVUTHCEMR (10*3/UL) IN BLOOD AUTOMATED YMFEW342 10*3/aSAubonc375-[address] [facility] HospitalComment on above:Performed By: #### [id number] ####[facility] ([facility])[address] [place] [address]PCAD GLUCOSE METER UNSOLICITED RESULTSon 03-67-8802Umeutxw [Mass/Vol]117 mg/aUVccc19-[address] [facility] HospitalComment on above:Order Comment: Waived Testing in the ED is performed under the ED CLIA certificate #[id number].Result Comment: shamarPerformed By: #### [id number] ####[facility] ([facility])[address] [place] [address]Ocnwhyg [Mass/Vol]97 mg/eURlshht31-431WcckyuzsutDunlap Memorial HospitalComment on above:Order Comment: Waived Testing in the ED is performed under the ED CLIA certificate #[id number].Result Comment: shamar Performed By: #### [id number] ####[facility] ([facility])[address] [place] [address]Mmngtab [Mass/Vol]91 mg/gZZjtyio87-971IsoufcohdsDunlap Memorial HospitalComment on above:Order Comment: Waived Testing in the ED is performed under the ED CLIA certificate #[id number].Result Comment: phorton2 Performed By: #### [id number] ####[facility] ([facility])[address] [place] [address]Enxowjx [Mass/Vol]93 mg/iCWdtouo21-880SlzzxoiwybDunlap Memorial HospitalComment on above:Order Comment: Waived Testing in the ED is performed under the ED CLIA certificate #[id number].Result Comment: phorton2 Performed By: #### [id number] ####[facility] ([facility])[address] [place] [address]Z0, FREEon 60-75-7563SQKYLIIPS (T4) FREE (NG/DL) IN SER/PLAS 1.61 ng/dLNormal0.71-1.85UnDunlap Memorial HospitalComment on above: Performed By: #### [id number] ####[facility] ([facility])[address] [place] [address]KULKPJTY Ion 38-92-1144Bfbgkhfu I.cardiac [Mass/Vol]0.06 ng/mLHigh0.00-0.04UnDunlap Memorial HospitalComment on above:Performed By: #### [id number] ####[facility] ([facility])[address] [place] [address] Troponin I.cardiac [Mass/Vol]0.08 ng/mLHigh0.00-0.04UnDunlap Memorial HospitalComment on above:Performed By: #### [id number] ####[facility] ([facility])[address] [facility] [place] [address]Fcnwkxac I.cardiac [Mass/Vol]0.07 ng/mLHigh0.00-0.04UnDunlap Memorial HospitalComment on above:Performed By: #### [id number] ####[facility] ([facility])[address] [place] [address] TSHon 17-07-5034POESYCPXXFL (MIU/L) IN SER/PLAS BY DETECTION LIMIT <= 0.05 MIU/L 5.42 mIU/LNormal0.34-5.60UnDunlap Memorial HospitalComment on above: Performed By: #### [id number] ####[facility] ([facility])[address] [place] [address]yu 23-04-739338Bmp patient is Moderately Stable - Low risk of patient condition declining or worsening The patient's goals for the shift include sleep/rest The clinical goals for the shift include VSS/restNormalUniversSelect Medical Specialty Hospital - Youngstown30NormalUniversity [facility] Good Samaritan HospitalBASIC METABOLIC PANELon 18-76-7513Maqxr gap [Moles/Vol]8 mmol/LNormal7-20UnDunlap Memorial HospitalComment on above:Performed By: #### [id number] ####[facility] ([facility])[address] [place], [place] [address]Yfyxncs [Mass/Vol]8.0 mg/dLLow8.6-10.[address] [facility] HospitalComment on above:Performed By: #### [id number] ####[facility] ([facility])[address] [place], [place] [address]Xqpnxxvs [Moles/Vol]106 mmol/IDjpazm96-568GflgezopzrDunlap Memorial HospitalComment on above:Performed By: #### [id number] ####[facility] ([facility])[address] [place], [place] [address]CZ3 [Moles/Vol]28 mmol/CTyoequ41-05HstcrrxcrhDunlap Memorial HospitalComment on above:Performed By: #### [id number] ####[facility] ([facility])[address] [place], [place] [address]Epuflltuie [Mass/Vol]1.39 mg/dLHigh 0.60-1.20UnDunlap Memorial HospitalComment on above:Performed By: #### [id number] ####[facility] ([facility])[address] [place], [place] [address]RDCXUKXHBM FILTRATION RATE ML/MIN/1.73 SQ M.SDBNNEVQB37.4 mL/min/1.73m*2Low>60.0UnDunlap Memorial HospitalComment on above:Result Comment: [facility]???s estimated glomerular filtration rate (eGFR) will [...] By: #### [id number] ####[facility] ([facility])[address] [place] [address]Zbyzkzy [Mass/Vol]91 mg/pMSndhks02-024CvcjvliofbDunlap Memorial HospitalComment on above:Performed By: #### [id number] ####[facility] ([facility])[address] [place] [address]Pvimirvvp [Moles/Vol]4.3 mmol/LNormal 3.5-5.1UnDunlap Memorial HospitalComment on above:Performed By: #### [id number] ####[facility] ([facility])[address] [place] [address]Tjkkyl [Moles/Vol]138 mmol/RPqityo100-535LhgjghknalDunlap Memorial HospitalComment on above:Performed By: #### [id number] ####[facility] ([facility])[address] [place], [place] [address]Dtyc nitrogen [Mass/Vol]29 mg/dLHigh7-25UnDunlap Memorial HospitalComment on above:Performed By: #### [id number] ####[facility] ([facility])[address] [place] [address]GVYF NITROGEN/CREATININE (MASS RATIO) IN SER/PLAS20.9NormalUniversSelect Medical Specialty Hospital - YoungstownComment on above: Performed By: #### [id number] ####[facility] ([facility])[address] [place] [address]IWL WITH AUTO DIFFERENTIALon [id number] (Bld) [#/Vol]0.03 10*3/uLNormal0.00-0.20UnDunlap Memorial HospitalComment on above: Performed By: #### [id number] ####[facility] ([facility])[address] [place], [place] [address]Awpcscqei/100 WBC (Bld)0.3 %Normal0.0-1.0UnDunlap Memorial HospitalComment on above:Performed By: #### [id number] ####[facility] ([facility])[address] [place], [place] [address]Fsigjkyymon (Bld) [#/Vol]0.19 10*3/uL Normal0.00-0.50UnDunlap Memorial HospitalComment on above:Performed By: #### [id number] ####[facility] ([facility] [facility])[address] [place] [address] Eosinophils/100 WBC (Bld)1.8 %Normal0.0-6.0UnDunlap Memorial Hospital Comment on above:Performed By: #### [id number] ####[facility] ([facility])[address] [place], [place] [address]Boimtodtflk distribution width (RBC) [Ratio]17.0 % High11.5-15.0UnDunlap Memorial HospitalComment on above:Performed By: #### [id number] ####[facility] ([facility])[address] [place] [address] ERYTHROCYTE MEAN CORPUSCULAR HEMOGLOBIN CONCENTRATION (G/DL) BY QDAMNXGBB45.5 g/dLLow32.0-35.0UnDunlap Memorial HospitalComment on above:Performed By: #### [id number] ####[facility] ([facility])[address] [place], [place] [address]Cgpgofmkkx (Bld) [Volume fraction]27.2 %Low36.0-48.0UnDunlap Memorial HospitalComment on above:Performed By: #### [id number] ####[facility] ([facility])[address] [place], [place] [address]Gtlhddwhxp (Bld) [Mass/Vol]8.3 g/dLLow 12.0-15.0UnDunlap Memorial HospitalComment on above:Performed By: #### [id number] ####[facility] ([facility])[address] [place], [place] [address]Cshqqoec granulocytes (Bld) [#/Vol]0.04 10*3/uLNormal0.00-0.20UnDunlap Memorial HospitalComment on above:Performed By: #### [id number] ####[facility] ([facility])[address] [place] [address]Rkacrykp granulocytes/100 WBC (Bld)0.4 %Normal0.0-1.0UnDunlap Memorial HospitalComment on above:Performed By: #### [id number] ####[facility] ([facility])[address] [place] [address] Lymphocytes (Bld) [#/Vol]1.44 10*3/uLNormal1.20-4.00UnDunlap Memorial HospitalComment on above:Performed By: #### [id number] ####[facility] ([facility])[address] [place] [facility] [address]Ynwnsmhsvps/100 WBC (Bld)13.6 %Low 20.0-45.0UnDunlap Memorial HospitalComment on above:Performed By: #### [id number] ####[facility] ([facility])[address] [place] [address]JWH (RBC) [Entitic mass]28.3 shQzpnst21.0-33.0UnDunlap Memorial Hospital Comment on above:Performed By: #### [id number] ####[facility] ([facility])[address] [facility] [address]JXO (RBC) [Entitic vol]92.8 vQGxnska82.0-98.[address] Charles HospitalComment on above:Performed By: #### [id number] ####[facility] ([facility])[address] [place] [address]Qacxbgefj (Bld) [#/Vol]0.73 10*3/uLNormal0.10-1.00UnDunlap Memorial HospitalComment on above:Performed By: #### [id number] ####[facility] ([facility])[address] [place] [address]Hcygveevo/100 WBC (Bld)6.9 %Normal5.0-12.0UnDunlap Memorial HospitalComment on above:Performed By: #### [id number] ####[facility] ([facility])[address] [place] [address]Dqgachqqhbg (Bld) [#/Vol] 8.12 10*3/uLHigh1.60-7.60UnDunlap Memorial HospitalComment on above: Performed By: #### [id number] ####[facility] ([facility])[address] [place] [address]Hrwjkndsqfs/100 WBC (Bld)77.0 %High40.0-72.0UnDunlap Memorial HospitalComment on above:Performed By: #### [id number] ####[facility] ([facility])[address] [place] [address]QSKB (PER 100 WBCS) BY AUTOMATED COUNT0.0 %Gejepx2ZvixsggsdbDunlap Memorial HospitalComment on above: Performed By: #### [id number] ####[facility] ([facility])[address] [place] [address]QJSXEQLMT (10*3/UL) IN BLOOD AUTOMATED [id number] 10*3/uLLow 150-400UnDunlap Memorial HospitalComment on above:Performed By: #### [id number] ####[facility] ([facility])[address] [place], [place] [address]LGE (Bld) [#/Vol]2.93 10*6/uLLow3.80-5.00UnDunlap Memorial HospitalComment on above:Performed By: #### [id number] ####[facility] ([facility])[address] [place], [place] [address]OKS (Bld) [#/Vol]10.55 10*3/uLNormal4.00-10.60UnDunlap Memorial HospitalComment on above:Performed By: #### [id number] ####[facility] ([facility])[address] [place] [address]JQwy 55-48-2128ODUobhyu [facility] Charles HospitalMAGNESIUMon 73-20-6877Tngtodrli [Mass/Vol]2.2 mg/dLNormal1.9-2.7UnDunlap Memorial HospitalComment on above:Performed By: #### [id number] ####[facility] ([facility])[address] [place], [place] [address]KLPSJRIHjh 70-18-7691XGPLEBPCOzwbxwHzkcxhfgmi of [facility] NURSNOTENormalUniversity [facility] Samaritan HospitalOrders Onlyon 63-70-5399Bskhoy [id number] Shayy Maynard 1945 F Date Provider Department Center 01/31/2024 YOVANY IRVING [facility] VASC [place] No family history on fileNormalUniOhio State University Wexner Medical CenterPHOSPHORUSon 16-01-0250Jrmlcdlew [Mass/Vol]3.3 mg/dLNormal2.5-5.0UnDunlap Memorial HospitalComment on above:Performed By: #### [id number] ####[facility] ([facility])[address] [place], [place] [address]ERLJ GLUCOSE METER UNSOLICITED RESULTS on 99-31-5763Wachelv [Mass/Vol]210 mg/rXRjrv62-581ZjlogeisntDunlap Memorial HospitalComment on above:Order Comment: Waived Testing in the ED is performed under the ED CLIA certificate #[id number].Result Comment: [email or web address] By: #### [id number] ####[facility] ([facility])[address] [place] [address] Glucose [Mass/Vol]118 mg/hMVsra53-126HtgqnnxiuaDunlap Memorial HospitalComment on above:Order Comment: Waived Testing in the ED is performed under the ED CLIA certificate #[id number].Result Comment: [email or web address] By: #### [id number] ####[facility] ([facility])[address] [place] [address]BZJVE METABOLIC PANELon 96-81-8450Nyxaq gap [Moles/Vol]7 mmol/LNormal7-20UnDunlap Memorial HospitalComment on above:Performed By: #### [id number] ####[facility] ([facility])[address] [place] [address]Utdljms [Mass/Vol]8.0 mg/dLLow8.6-10.[address] Charles HospitalComment on above:Performed By: #### [id number] ####[facility] ([facility])[address] [place], [place] [address]Kzbkpuqa [Moles/Vol]107 mmol/NZblhah98-177XoghpchdrtDunlap Memorial HospitalComment on above:Performed By: #### [id number] ####[facility] ([facility])[address] [place], [place] [address]BD[address] [Moles/Vol]27 mmol/XQtnram15-20BuxtomzvttDunlap Memorial HospitalComment on above:Performed By: #### [id number] ####[facility] ([facility])[address] [place], [place] [address]Ixthkvctyc [Mass/Vol]1.54 mg/dLHigh 0.60-1.20UnDunlap Memorial HospitalComment on above:Performed By: #### [id number] ####[facility] ([facility])[address] [place], [place] [address]WOSCLCBUWQ FILTRATION RATE ML/MIN/1.73 SQ M.XVUESXQMB20.9 mL/min/1.73m*2Low>60.0UnDunlap Memorial HospitalComment on above:Result Comment: [facility]???s estimated glomerular filtration rate (eGFR) will [...] By: #### [id number] ####[facility] ([facility])[address] [place] [address]Pqxwyed [Mass/Vol]124 mg/rLLsma95-797JshgkhlgdbDunlap Memorial HospitalComment on above:Performed By: #### [id number] ####[facility] ([facility])[address] [place], [place] [address]Tlhjckjdw [Moles/Vol]4.4 mmol/LNormal 3.5-5.1UnDunlap Memorial HospitalComment on above:Performed By: #### [id number] ####[facility] ([facility])[address] [place], [place] [address]Qqxtka [Moles/Vol]137 mmol/GWigaav012-915UpcojgyhghDunlap Memorial HospitalComment on above:Performed By: #### [id number] ####[facility] ([facility])[address] [place], [place] [address]Vcbp nitrogen [Mass/Vol]25 mg/dLNormal7-25UnDunlap Memorial HospitalComment on above:Performed By: #### [id number] ####[facility] ([facility])[address] [place], [place] [address]OYUZ NITROGEN/CREATININE (MASS RATIO) IN SER/PLAS16.2NormalUnDunlap Memorial HospitalComment on above: Performed By: #### [id number] ####[facility] ([facility])[address] [place], [place] [address]QEO WITH AUTO DIFFERENTIALon 92-14-1080Hpugiogqb (Bld) [#/Vol]0.02 10*3/uLNormal0.00-0.20UnDunlap Memorial HospitalComment on above: Performed By: #### [id number] ####[facility] ([facility])[address] [place], [place] [address]Bksaodzlx/100 WBC (Bld)0.2 %Normal0.0-1.0UnDunlap Memorial HospitalComment on above:Performed By: #### [id number] ####[facility] ([facility])[address] [place], [place] [address]Bdcykuiviwl (Bld) [#/Vol]0.06 10*3/uL Normal0.00-0.50UnDunlap Memorial HospitalComment on above:Performed By: #### [id number] ####[facility] ([facility])[address] [place] [address] Eosinophils/100 WBC (Bld)0.5 %Normal0.0-6.0UnDunlap Memorial Hospital Comment on above:Performed By: #### [id number] ####[facility] ([facility])[address] [place], [place] [address]Piualnxypvd distribution width (RBC) [Ratio]16.7 % High11.5-15.0UnDunlap Memorial HospitalComment on above:Performed By: #### [id number] ####[facility] ([facility])[address] [place] [address] ERYTHROCYTE MEAN CORPUSCULAR HEMOGLOBIN CONCENTRATION (G/DL) BY STXBCSODL02.5 g/dLLow32.0-35.0UnDunlap Memorial HospitalComment on above:Performed By: #### [id number] ####[facility] ([facility])[address] [place], [place] [address]Pzxthjqfpu (Bld) [Volume fraction]29.8 %Low36.0-48.0UnDunlap Memorial HospitalComment on above:Performed By: #### [id number] ####[facility] ([facility])[address] [place], [place] [address]Kadzydbloo (Bld) [Mass/Vol]9.1 g/dLLow 12.0-15.0UnDunlap Memorial HospitalComment on above:Performed By: #### [id number] ####[facility] ([facility])[address] [place], [place] [address]Sxlxtmwp granulocytes (Bld) [#/Vol]0.07 10*3/uLNormal0.00-0.20UnDunlap Memorial HospitalComment on above:Performed By: #### [id number] ####[facility] ([facility])[address] [place] [address]Luwgpeve granulocytes/100 WBC (Bld)0.5 %Normal0.0-1.0UnDunlap Memorial HospitalComment on above:Performed By: #### [id number] ####[facility] ([facility])[address] [facility] [address] Lymphocytes (Bld) [#/Vol]1.15 10*3/uLLow1.20-4.00UnDunlap Memorial HospitalComment on above:Performed By: #### [id number] ####[facility] ([facility])[address] [place], [place] [address]Csqmqbnmyra/100 WBC (Bld)8.6 %Low 20.0-45.0UnDunlap Memorial HospitalComment on above:Performed By: #### [id number] ####[facility] ([facility])[address] [place] [address]ZXU (RBC) [Entitic mass]28.4 quKzkxqd62.0-33.0Un[facility] Hospital Comment on above:Performed By: #### [id number] ####[facility] ([facility])[address] [place], [place] [address]KJR (RBC) [Entitic vol]93.1 qIIsartk61.0-98.[address] Charles HospitalComment on above:Performed By: #### [id number] ####[facility] ([facility])[address] [facility] [address]Xnwcbkbni (Bld) [#/Vol]0.80 10*3/uLNormal0.10-1.00UnDunlap Memorial HospitalComment on above:Performed By: #### [id number] ####[facility] ([facility])[address] [facility], [place] [address]Mylivgpjh/100 WBC (Bld)6.0 %Normal5.0-12.0UnDunlap Memorial HospitalComment on above:Performed By: #### [id number] ####[facility] ([facility])[address] [place] [address]Wfkgvjaidbc (Bld) [#/Vol] 11.20 10*3/uLHigh1.60-7.60UnDunlap Memorial HospitalComment on above: Performed By: #### [id number] ####[facility] ([facility])[address] [place] [address]Vhkxeraxeql/100 WBC (Bld)84.2 %High40.0-72.0UnDunlap Memorial HospitalComment on above:Performed By: #### [id number] ####[facility] ([facility])[address] [place] [address]SUFW (PER 100 WBCS) BY AUTOMATED COUNT0.0 %Muqeky6EgbmnkgnlrDunlap Memorial HospitalComment on above: Performed By: #### [id number] ####[facility] ([facility])[address] [place] [address]HVJRBPNLM (10*3/UL) IN BLOOD AUTOMATED [id number] 10*3/uLNormal 150-400UnDunlap Memorial HospitalComment on above:Performed By: #### [id number] ####[facility] ([facility])[address] [place] [address]OVN (Bld) [#/Vol]3.20 10*6/uLLow3.80-5.00UnDunlap Memorial HospitalComment on above:Performed By: #### [id number] ####[facility] ([facility])[address] [place] [address]FVY (Bld) [#/Vol]13.30 10*3/uLHigh4.00-10.60UnDunlap Memorial HospitalComment on above:Performed By: #### [id number] ####[facility] ([facility])[address] [place] [address]UStw 34-10-8380EXLepmgj [facility] Community HospitalGNESIUMon 49-65-0206Kzumolyvf [Mass/Vol]2.4 mg/dLNormal1.9-2.7UnDunlap Memorial HospitalComment on above:Performed By: #### [id number] ####[facility] ([facility])[address] [place], [place] [address]PSZIBTFWFKtj 29-46-4993Yrzkyvvev [Mass/Vol]3.6 mg/dLNormal2.5-5.0UnDunlap Memorial HospitalComment on above:Performed By: #### [id number] ####[facility] ([facility])[address] [place], [place] [address]WYKT GLUCOSE METER UNSOLICITED RESULTSon 09-98-6949Jydqokg [Mass/Vol]271 mg/cCGlmf49-634QvbgdbhzhoDunlap Memorial HospitalComment on above:Order Comment: Waived Testing in the ED is performed under the ED CLIA certificate #[id number].Result Comment: [email or web address] Performed By: #### [id number] ####[facility] ([facility])[address] [place], [place] [address]Eoqdljy [Mass/Vol]130 mg/eQXlsj44-430EyycisscrfDunlap Memorial HospitalComment on above:Order Comment: Waived Testing in the ED is performed under the ED CLIA certificate #[id number].Result Comment: [email or web address] Performed By: #### [id number] ####[facility] ([facility])[address] [place], [place] [address]Kgzhknp [Mass/Vol]166 mg/tNNufo66-374OjhdxqchwrDunlap Memorial HospitalComment on above:Order Comment: Waived Testing in the ED is performed under the ED CLIA certificate #[id number].Result Comment: [email or web address] Performed By: #### [id number] ####[facility] ([facility])[address] [place], [place] [address]Yectjex [Mass/Vol]151 mg/fLStyl66-620OmqaixqubxDunlap Memorial HospitalComment on above:Order Comment: Waived Testing in the ED is performed under the ED CLIA certificate #[id number].Result Comment: [email or web address] Performed By: #### [id number] ####[facility] ([facility])[address] [place] [address]Wrmnnrp [Mass/Vol]134 mg/eOIonr50-459AdzubymcvoDunlap Memorial HospitalComment on above:Order Comment: Waived Testing in the ED is performed under the ED CLIA certificate #[id number].Result Comment: [email or web address] Performed By: #### [id number] ####[facility] ([facility])[address] [place] [id number] 22-65-780043Aet patient is Moderately Stable - Low risk of patient condition declining or worsening The patient's goals for the shift include Pain Control The clinical goals for the shift include VSS, pain control, mobilityNormal [facility]30NormalUniOhio State University Wexner Medical Center ARTERIAL BLOOD GAS WITH CO-OXIMETRYon 78-77-8896Rzbm excess Calc (Bld) [Moles/Vol]0.2 mmol/LNormal-2.0-3.0UnDunlap Memorial HospitalComment on above:Performed By: #### [id number] ####[facility] [id number] [place] [address] USACARBOXYHEMOGLOBIN/HEMOGLOBIN TOTAL % IN BLOOD1.4 %Normal 0.0-3.0UnDunlap Memorial HospitalComment on above:Performed By: #### [id number] ####[facility] [id number] [place] [address] USACO2 (Bld) [Partial pressure]38 mm[Hg]Hjdmnt98-89DncynqcbndDunlap Memorial Hospital Comment on above:Performed By: #### [id number] ####[facility] [id number] [place] [address] USADEOXYGENATED HEMOGLOBIN IN BLOOD0.4 %Low1-[address] [facility] HospitalComment on above:Performed By: #### [id number] ####[facility] [id number] [facility] [address] USAHCO3 (Bld) [Moles/Vol]24.6 mmol/YPorqhm74.0-28.0UnDunlap Memorial HospitalComment on above:Performed By: #### [id number] ####[facility] [id number] [place] [address] USAHemoglobin (Bld) [Mass/Vol]10.5 g/dLLow11.7-17.[address] [facility] HospitalComment on above:Performed By: #### [id number] ####[facility] [id number] [place] [address] NCWVEV[address] [facility] HospitalComment on above:Performed By: #### [id number] ####[facility] [id number] [place] [address] [facility] METHEMOGLOBIN/100 IN BLOOD0.7 %Normal0.0-1.5UnDunlap Memorial Hospital Comment on above:Performed By: #### [id number] ####[facility] [id number] [place] [address] USAOxygen (Bld) [Partial pressure]116 mm[Hg]High 83-100UnDunlap Memorial HospitalComment on above:Performed By: #### [id number] ####[facility] [id number] [place] [address] USAOXYGEN SATURATION (%) IN ARTERIAL BLOOD99.6 %High94.0-98.0UnDunlap Memorial HospitalComment on above:Performed By: #### [id number] ####[facility] [id number] [place] [address] USAOXYGENATED HEMOGLOBIN IN BLOOD97.5 %High90.0-95.0UnDunlap Memorial HospitalComment on above:Performed By: #### [id number] ####[facility]IR[facility] [id number] [place] [address] [place] pH (Bld)7.42 [pH]Normal7.35-7.45UnDunlap Memorial HospitalComment on above:Performed By: #### [id number] ####[facility] [id number] [place] [address] USASOURCE OF OXYGENNasal cannulaNormalUniversity [facility] CenterComment on above:Performed By: #### [id number] ####[facility]IR[facility] [id number] [place] [address] USAARTERIAL BLOOD GAS WITH IONIZED CALCIUMon 54-89-8743Qlhw excess Calc (Bld) [Moles/Vol]-0.6000 mmol/LNormal -2.0-3.0UnDunlap Memorial HospitalComment on above:Performed By: #### [id number] ####[facility] RES[facility]IR[facility] [id number] [place] [address] [place] CALCIUM IONIZED (MMOL/L) IN BLOOD1.19 mmol/LNormal1.15-1.33UnDunlap Memorial HospitalComment on above:Performed By: #### [id number] ####[facility] RESPIR[facility] [id number] [place] [address] USACO2 (Bld) [Partial pressure]46 mm[Hg]Apscbs47-78FpvlyhbqhhDunlap Memorial HospitalComment on above:Performed By: #### [id number] ####[facility]IR[facility] [id number] [place] [address] USAHCO3 (Bld) [Moles/Vol]25.4 mmol/OTmgfrl73.0-28.0UnDunlap Memorial HospitalComment on above:Performed By: #### [id number] ####[facility] RESPIR[facility] [id number] [place] [address] KCHXQH1AxyyfqTvrprehknnOhio State University Wexner Medical CenterComment on above:Performed By: #### [id number] ####[facility] RESPIR[facility] [id number] [place] [address] USAOxygen (Bld) [Partial pressure]97 mm[Hg]Iolaeu51-118SjvfjvsbpxDunlap Memorial HospitalComment on above:Performed By: #### [id number] ####[facility]IR[facility] [id number] [place] [address] USAOXYGEN SATURATION (%) IN ARTERIAL BLOOD99.4 %High94.0-98.0UnDunlap Memorial HospitalComment on above:Performed By: #### [id number] ####[facility] RESPIR[facility] [id number] [place] [address] USApH (Bld)7.35 [pH]Normal 7.35-7.45UnDunlap Memorial HospitalComment on above:Performed By: #### [id number] ####[facility] RES[facility]IR[facility] [id number] [place] [address] USASOURCE OF OXYGENNasal cannulaNormalUniversity [facility] Samaritan HospitalComment on above:Performed By: #### [id number] ####[facility] RESPIRAT[facility] [id number] [place] [address] USABASIC METABOLIC PANELon 99-65-9049Amynx gap [Moles/Vol]11 mmol/LNormal7-20UnDunlap Memorial HospitalComment on above:Performed By: #### [id number] ####[facility] ([facility])[address] [place] [address] Calcium [Mass/Vol]8.0 mg/dLLow8.6-10.3UnDunlap Memorial HospitalComment on above:Performed By: #### [id number] ####[facility] ([facility])[address] [place], [place] [address]Koyuoafx [Moles/Vol]105 mmol/AJpapah81-674JqpgqptdxuDunlap Memorial HospitalComment on above:Performed By: #### [id number] ####[facility] ([facility])[address] [place], [place] [address]TC1 [Moles/Vol]25 mmol/LNormal 21-31UnDunlap Memorial HospitalComment on above:Performed By: #### [id number] ####[facility] ([facility])[address] [place], [place] [address]Jwxbaueesd [Mass/Vol]1.18 mg/dLNormal0.60-1.20UnDunlap Memorial HospitalComment on above:Performed By: #### [id number] ####[facility] ([facility])[address] [place], [place] [address]PLMJKMKPMQ FILTRATION RATE ML/MIN/1.73 SQ M.OCLOKNNLE81.7 mL/min/1.73m*2Low>60.0UnDunlap Memorial HospitalComment on above:Result Comment: [facility]???s estimated glomerular filtration rate (eGFR) will [...] By: #### [id number] ####[facility] ([facility])[address] [place], [place] [address]Qtqwnjc [Mass/Vol]204 mg/sTOqzv57-693EaejydmsquDunlap Memorial HospitalComment on above:Performed By: #### [id number] ####[facility] ([facility])[address] [place], [place] [address]Yjzdhhiyc [Moles/Vol]3.8 mmol/L Normal3.5-5.1UnDunlap Memorial HospitalComment on above:Performed By: #### [id number] ####[facility] ([facility])[address] [place] [address] Sodium [Moles/Vol]137 mmol/ERvkbce467-902BokdjkvetvDunlap Memorial Hospital Comment on above:Performed By: #### [id number] ####[facility] ([facility])[address] [place], [place] [address]Rqex nitrogen [Mass/Vol]21 mg/dLNormal7-[address] Charles HospitalComment on above:Performed By: #### [id number] ####[facility] ([facility])[address] [place], [place] [address]FUSF NITROGEN/CREATININE (MASS RATIO) IN SER/PLAS17.8NormalUniversSelect Medical Specialty Hospital - YoungstownComment on above:Performed By: #### [id number] ####[facility] ([facility])[address] [place], [place] [address]EOLEDWV, IONIZEDon [id number] IONIZED (MMOL/L) IN BLOOD1.14 mmol/LLow1.15-1.33UnDunlap Memorial HospitalComment on above:Performed By: #### [id number] ####[facility] [id number] [place] [address] USACALCIUM IONIZED (MMOL/L) IN BLOOD1.19 mmol/L Normal1.15-1.33UnDunlap Memorial HospitalComment on above:Performed By: #### CALCIUM, IONIZED ####[facility] [id number] [place] [address] USACBCon [id number] distribution width (RBC) [Ratio]16.1 %High 11.5-15.0UnDunlap Memorial HospitalComment on above:Performed By: #### [id number] ####[facility] (BEAKER)[address] [place] [address] ERYTHROCYTE MEAN CORPUSCULAR HEMOGLOBIN CONCENTRATION (G/DL) BY KTDEVISKY34.2 g/qFYnkbfi91.0-35.0UnDunlap Memorial HospitalComment on above:Performed By: #### [id number] ####[facility] (BEAKER)[address] [place], [place] [address]Lnsyhbbrau (Bld) [Volume fraction]30.7 %Low36.0-48.0UnDunlap Memorial HospitalComment on above:Performed By: #### [id number] ####[facility] (BEAKER)[address] [place], [place] [address]Rqykeibuhf (Bld) [Mass/Vol]9.9 g/dLLow 12.0-15.0UnDunlap Memorial HospitalComment on above:Performed By: #### [id number] ####[facility] ([facility]ER)[address] [place], [place] [address]QAT (RBC) [Entitic mass]28.6 woIcpstd42.0-33.0UnDunlap Memorial HospitalComment on above:Performed By: #### [id number] ####[facility] ([facility]ER)[address] [place], [place] [address]NWR (RBC) [Entitic vol]88.7 uKEpnhhw28.0-98.0UnDunlap Memorial HospitalComment on above:Performed By: #### [id number] ####[facility] ([facility])[address] [place] [address]BPCAUYYYH (10*3/UL) IN BLOOD AUTOMATED PZQUV050 10*3/kHGjr321-332EyskncyxdzDunlap Memorial Hospital Comment on above:Performed By: #### [id number] ####[facility] ([facility])[address] [place] [address]XAB (Bld) [#/Vol]3.46 10*6/uLLow3.80-5.00UnDunlap Memorial HospitalComment on above:Performed By: #### [id number] ####[facility] ([facility])[address] [place] [address]UTY (Bld) [#/Vol]13.37 10*3/uLHigh4.00-10.60UnDunlap Memorial HospitalComment on above: Performed By: #### [id number] ####[facility] ([facility])[address] [place] [address]JKQ WITH AUTO DIFFERENTIALon 33-70-5793Xqdmhebnh (Bld) [#/Vol]0.02 10*3/uLNormal0.00-0.20UnDunlap Memorial HospitalComment on above:Performed By: #### [id number] ####[facility] ([facility])[address] [place] [address]Krcvtlwrq/100 WBC (Bld)0.2 %Normal0.0-1.0UnDunlap Memorial HospitalComment on above:Performed By: #### [id number] ####[facility] ([facility])[address] [place] [address]Zpsafvtalfu (Bld) [#/Vol]0.00 10*3/uL Normal0.00-0.50UnDunlap Memorial HospitalComment on above:Performed By: #### [id number] ####[facility] ([facility])[address] [place] [address] Eosinophils/100 WBC (Bld)0.0 %Normal0.0-6.0UnDunlap Memorial Hospital Comment on above:Performed By: #### [id number] ####[facility] ([facility])[address] [place], [place] [address]Gkyktunuhmz distribution width (RBC) [Ratio]16.1 % High11.5-15.0UnDunlap Memorial HospitalComment on above:Performed By: #### [id number] ####[facility] ([facility])[address] [place] [address] ERYTHROCYTE MEAN CORPUSCULAR HEMOGLOBIN CONCENTRATION (G/DL) BY RLTYYDZKA23.0 g/qUPxvjdj75.0-35.0UnDunlap Memorial HospitalComment on above:Performed By: #### [id number] ####[facility] ([facility])[address] [place], [place] [address]Quaolkmjif (Bld) [Volume fraction]32.5 %Low36.0-48.0UnDunlap Memorial HospitalComment on above:Performed By: #### [id number] ####[facility] ([facility])[address] [place], [place] [address]Tvpmfpwezc (Bld) [Mass/Vol]10.4 g/dL Low12.0-15.0UnDunlap Memorial HospitalComment on above:Performed By: #### [id number] ####[facility] ([facility])[address] [place] [address] Immature granulocytes (Bld) [#/Vol]0.05 10*3/uLNormal0.00-0.20UnDunlap Memorial HospitalComment on above:Performed By: #### [id number] ####[facility] ([facility])[address] [place], [place] [address]Njyuunmy granulocytes/100 WBC (Bld)0.4 %Normal0.0-1.0UnDunlap Memorial HospitalComment on above: Performed By: #### [id number] ####[facility] ([facility])[address] [place], [place] [address]Obcoufjtlyd (Bld) [#/Vol]0.98 10*3/uLLow1.20-4.00UnDunlap Memorial HospitalComment on above:Performed By: #### [id number] ####[facility] ([facility])[address] [place], [place] [address]Mbcpttgzbci/100 WBC (Bld) 7.8 %Low20.0-45.0UnDunlap Memorial HospitalComment on above:Performed By: #### [id number] ####[facility] ([facility])[address] [place], [place] [address]NKF (RBC) [Entitic mass]28.3 shImzqqv60.0-33.0UnDunlap Memorial HospitalComment on above:Performed By: #### [id number] ####[facility] ([facility])[address] [place], [place] [address]TUY (RBC) [Entitic vol]88.3 fLNormal 82.0-98.0UnDunlap Memorial HospitalComment on above:Performed By: #### [id number] ####[facility] ([facility])[address] [place] [address] Monocytes (Bld) [#/Vol]0.54 10*3/uLNormal0.10-1.00UnDunlap Memorial HospitalComment on above:Performed By: #### [id number] ####[facility] ([facility])[address] [facility], [place] [address]Eocduwstd/100 WBC (Bld)4.3 %Low 5.0-12.0UnDunlap Memorial HospitalComment on above:Performed By: #### [id number] ####[facility] ([facility])[address] [place] [address] Neutrophils (Bld) [#/Vol]11.04 10*3/uLHigh1.60-7.60UnDunlap Memorial HospitalComment on above:Performed By: #### [id number] ####[facility] (BEAKER)[address] [place] [address]Gqcvekgfhdn/100 WBC (Bld)87.3 %High 40.0-72.0UnDunlap Memorial HospitalComment on above:Performed By: #### [id number] ####[facility] ([facility])[address] [place] [address]JMSZ (PER 100 WBCS) BY AUTOMATED COUNT0.0 %Iqlesv2BevkwnipgkDunlap Memorial Hospital Comment on above:Performed By: #### [id number] ####[facility] ([facility])[address] [place] [address]RQSGFGFKA (10*3/UL) IN BLOOD AUTOMATED RAIUI843 10*3/lHEmkled707-493ZsjpgvwsqgDunlap Memorial HospitalComment on above: Performed By: #### [id number] ####[facility] ([facility])[address] [place] [address]ORE (Bld) [#/Vol]3.68 10*6/uLLow3.80-5.00UnDunlap Memorial HospitalComment on above:Performed By: #### [id number] ####[facility] ([facility])[address] [place] [address]EMO (Bld) [#/Vol]12.63 10*3/uLHigh 4.00-10.60UnDunlap Memorial HospitalComment on above:Performed By: #### [id number] ####[facility] ([facility]ER)[address] [place] [address] Basophils (Bld) [#/Vol]0.01 10*3/uLNormal0.00-0.20UnDunlap Memorial HospitalComment on above:Performed By: #### [id number] ####[facility] (BEAKER)[address] [place] [address]Rvtdqpela/100 WBC (Bld)0.1 %Normal 0.0-1.0UnDunlap Memorial HospitalComment on above:Performed By: #### [id number] ####[facility] (BEAKER)[address] [place] [address] Eosinophils (Bld) [#/Vol]0.00 10*3/uLNormal0.00-0.50UnDunlap Memorial HospitalComment on above:Performed By: #### [id number] ####[facility] ([facility])[address] [place], [place] [address]Vbtpnwctpbc/100 WBC (Bld)0.0 %Normal 0.0-6.0UnDunlap Memorial HospitalComment on above:Performed By: #### [id number] ####[facility] ([facility])[address] [place] [address] Erythrocyte distribution width (RBC) [Ratio]16.4 %High11.5-15.0UnDunlap Memorial HospitalComment on above:Performed By: #### [id number] ####[facility] ([facility])[address] [place], [place] [address]LEVLLKJKYXF MEAN CORPUSCULAR HEMOGLOBIN CONCENTRATION (G/DL) BY EJOXMESAQ44.6 g/dLLow32.0-35.[address] Charles HospitalComment on above:Performed By: #### [id number] ####[facility] ([facility])[address] [place], [place] [address]Cvixjptmom (Bld) [Volume fraction]31.0 %Low36.0-48.0UnDunlap Memorial HospitalComment on above:Performed By: #### [id number] ####[facility] ([facility])[address] [place], [place] [address]Dpdsysfzew (Bld) [Mass/Vol]9.8 g/dLLow12.0-15.0UnDunlap Memorial HospitalComment on above:Performed By: #### [id number] ####[facility] (BEAKER)[address] [place], [place] [address]Oqkkcphf granulocytes (Bld) [#/Vol]0.05 10*3/uLNormal0.00-0.20UnDunlap Memorial Hospital Comment on above:Performed By: #### [id number] ####[facility] ([facility])[address] [place], [place] [address]Ifyvpfur granulocytes/100 WBC (Bld)0.5 %Normal 0.0-1.0UnDunlap Memorial HospitalComment on above:Performed By: #### [id number] ####[facility] ([facility])[address] [facility] [address] Lymphocytes (Bld) [#/Vol]0.58 10*3/uLLow1.20-4.00UnDunlap Memorial HospitalComment on above:Performed By: #### [id number] ####[facility] ([facility])[address] [place], [place] [address]Tcsyvqetxpp/100 WBC (Bld)6.3 %Low 20.0-45.0UnDunlap Memorial HospitalComment on above:Performed By: #### [id number] ####[facility] ([facility])[address] [place], [place] [address]QNV (RBC) [Entitic mass]28.2 ruKqqrsq31.0-33.0UnDunlap Memorial Hospital Comment on above:Performed By: #### [id number] ####[facility] ([facility])[address] [place], [place] [address]QFC (RBC) [Entitic vol]89.3 sPXadons75.0-98.[address] Charles HospitalComment on above:Performed By: #### [id number] ####[facility] ([facility])[address] [facility] [place] [address]Ugzamacjd (Bld) [#/Vol]0.21 10*3/uLNormal0.10-1.00UnDunlap Memorial HospitalComment on above:Performed By: #### [id number] ####[facility] ([facility])[address] [facility] [address]Kmtzdclmi/100 WBC (Bld)2.3 %Low5.0-12.0UnDunlap Memorial HospitalComment on above:Performed By: #### [id number] ####[facility] ([facility])[address] [place] [address]Qmgcjvtpptx (Bld) [#/Vol]8.38 10*3/uL High1.60-7.60UnDunlap Memorial HospitalComment on above:Performed By: #### [id number] ####[facility] ([facility])[address] [place] [address] Neutrophils/100 WBC (Bld)90.8 %High40.0-72.0UnDunlap Memorial Hospital Comment on above:Performed By: #### [id number] ####[facility] ([facility])[address] [place] [address]GIVL (PER 100 WBCS) BY AUTOMATED COUNT0.0 %Normal[address] Charles HospitalComment on above:Performed By: #### [id number] ####[facility] ([facility])[address] [place] [address]LOFQHLPIO (10*3/UL) IN BLOOD AUTOMATED DUSSX207 10*3/xTNgz293-621XxzslsokktDunlap Memorial HospitalComment on above:Performed By: #### [id number] ####[facility] ([facility])[address] [place] [address]HEN (Bld) [#/Vol]3.47 10*6/uLLow 3.80-5.00UnDunlap Memorial HospitalComment on above:Performed By: #### [id number] ####[facility] ([facility])[address] [place] [address]MOX (Bld) [#/Vol]9.23 10*3/uLNormal4.00-10.60UnDunlap Memorial Hospital Comment on above:Performed By: #### [id number] ####[facility] ([facility])[address] [place] [address]GQCNWBUTTCWGP METABOLIC PANELon 39-15-750[address]Fwhlgwg [Mass/Vol]3.1 g/dLLow3.5-5.7UnDunlap Memorial HospitalComment on above: Performed By: #### [id number] ####[facility] ([facility])[address] [place] [address]CSV [Catalytic activity/Vol]60 U/MEdfhlw26-588FiwjyvudfcDunlap Memorial HospitalComment on above:Performed By: #### [id number] ####[facility] ([facility])[address] [place] [address]YKN [Catalytic activity/Vol]4 U/LLow 7-52UnDunlap Memorial HospitalComment on above:Performed By: #### [id number] ####[facility] ([facility])[address] [place], [place] [address]Aobth gap [Moles/Vol]9 mmol/LNormal7-20UnDunlap Memorial HospitalComment on above:Performed By: #### [id number] ####[facility] ([facility])[address] [place], [place] [address]XNH [Catalytic activity/Vol]11 U/PBfk65-24IfxfcmqxipDunlap Memorial HospitalComment on above:Performed By: #### [id number] ####[facility] ([facility])[address] [place], [place] [address]Xturtjqmp [Mass/Vol]0.4 mg/dL Normal0.3-1.0UnDunlap Memorial HospitalComment on above:Performed By: #### [id number] ####[facility] ([facility])[address] [place] [address] Calcium [Mass/Vol]8.0 mg/dLLow8.6-10.3UnDunlap Memorial HospitalComment on above:Performed By: #### [id number] ####[facility] ([facility])[address] [place], [place] [address]Ktuifacx [Moles/Vol]108 mmol/BMomm85-723OwvgarjbjkDunlap Memorial HospitalComment on above:Performed By: #### [id number] ####[facility] (BEAKER)[address] [place], [place] [address]QB7 [Moles/Vol]25 mmol/KXbeczb08-[address] [facility] HospitalComment on above:Performed By: #### [id number] ####[facility] ([facility])[address] [place] [address]Mtnwhirqss [Mass/Vol]1.06 mg/dLNormal0.60-1.20UnDunlap Memorial HospitalComment on above:Performed By: #### [id number] ####[facility] ([facility])[address] [place], [place] [address]NREWTJKKLD FILTRATION RATE ML/MIN/1.73 SQ M.KXYHVURNV22.1 mL/min/1.73m*2Low>60.0UnDunlap Memorial HospitalComment on above:Result Comment: [facility]???s estimated glomerular filtration rate (eGFR) will [...] By: #### [id number] ####[facility] ([facility])[address] [place], [place] [address]Fckrbox [Mass/Vol]133 mg/pMZpsk56-065EmwabepagxDunlap Memorial HospitalComment on above:Performed By: #### [id number] ####[facility] ([facility])[address] [place], [place] [address]Nbvpuloey [Moles/Vol]4.2 mmol/L Normal3.5-5.1UnDunlap Memorial HospitalComment on above:Performed By: #### [id number] ####[facility] ([facility])[address] [place] [address] Protein [Mass/Vol]5.2 g/dLLow6.0-8.3UnDunlap Memorial HospitalComment on above:Performed By: #### [id number] ####[facility] ([facility])[address] [place], [place] [address]Mhtpkv [Moles/Vol]138 mmol/AWinzyg629-172FfsjtvtdxnDunlap Memorial HospitalComment on above:Performed By: #### [id number] ####[facility] ([facility])[address] [place], [place] [address]Ybcb nitrogen [Mass/Vol]19 mg/dLNormal 7-25UnDunlap Memorial HospitalComment on above:Performed By: #### [id number] ####[facility] ([facility])[address] [place], [place] [address]GWWH NITROGEN/CREATININE (MASS RATIO) IN SER/PLAS17.9NormalUniversSelect Medical Specialty Hospital - YoungstownComment on above:Performed By: #### [id number] ####[facility] ([facility])[address] [place], [place] [address]Klwwsgu [Mass/Vol]3.3 g/dLLow3.5-5.[address] [facility] HospitalComment on above:Performed By: #### [id number] ####[facility] ([facility])[address] [place], [place] [address]DMR [Catalytic activity/Vol]67 U/FOgsysc84-730KxvxvadxgrDunlap Memorial HospitalComment on above:Performed By: #### [id number] ####[facility] ([facility])[address] [place], [place] [address]NKV [Catalytic activity/Vol]7 U/LNormal7-52UnDunlap Memorial HospitalComment on above:Performed By: #### [id number] ####[facility] ([facility])[address] [place], [place] [address]Ktvox gap [Moles/Vol]11 mmol/L Normal7-20UnDunlap Memorial HospitalComment on above:Performed By: #### [id number] ####[facility] ([facility])[address] [place], [place] [address]JVI [Catalytic activity/Vol]14 U/GStzetd95-35PnxmxosifhDunlap Memorial Hospital Comment on above:Performed By: #### [id number] ####[facility] ([facility])[address] [place], [place] [address]Mlaawvzui [Mass/Vol]0.4 mg/dLNormal0.3-1.[address] [facility] HospitalComment on above:Performed By: #### [id number] ####[facility] ([facility])[address] [place], [place] [address]Tpwxcfz [Mass/Vol]8.4 mg/dLLow8.6-10.3UnDunlap Memorial HospitalComment on above:Performed By: #### [id number] ####[facility] ([facility])[address] [place], [place] [address]Vbnxydog [Moles/Vol]108 mmol/QFkfk10-520KxumcvyqvwDunlap Memorial HospitalComment on above:Performed By: #### [id number] ####[facility] ([facility])[address] [place], [place] [address]AB2 [Moles/Vol]25 mmol/DGuvcpq83-[address] [facility] HospitalComment on above:Performed By: #### [id number] ####[facility] ([facility])[address] [place], [place] [address]Cfoaqokiio [Mass/Vol]1.24 mg/dLHigh0.60-1.20UnDunlap Memorial HospitalComment on above:Performed By: #### [id number] ####[facility] ([facility])[address] [place], [place] [address]MGYGBRVFAO FILTRATION RATE ML/MIN/1.73 SQ M.PNETXMREZ20.0 mL/min/1.73m*2Low>60.0UnDunlap Memorial HospitalComment on above:Result Comment: [facility]???s estimated glomerular filtration rate (eGFR) will [...] By: #### [id number] ####[facility] ([facility])[address] [place] [address]Ixarjnb [Mass/Vol]146 mg/wVDpbi43-994MkqfomvxmrDunlap Memorial HospitalComment on above:Performed By: #### [id number] ####[facility] ([facility])[address] [place] [address]Hbytqxzoc [Moles/Vol]4.1 mmol/L Normal3.5-5.1UnDunlap Memorial HospitalComment on above:Performed By: #### [id number] ####[facility] ([facility])[address] [place] [address] Protein [Mass/Vol]5.7 g/dLLow6.0-8.3UnDunlap Memorial HospitalComment on above:Performed By: #### [id number] ####[facility] ([facility])[address] [place] [address]Jwkycz [Moles/Vol]140 mmol/WFdwxjj771-155ZbacqqbxufDunlap Memorial HospitalComment on above:Performed By: #### [id number] ####[facility] ([facility])[address] [place], [place] [address]Mord nitrogen [Mass/Vol]21 mg/dLNormal 7-25UnDunlap Memorial HospitalComment on above:Performed By: #### [id number] ####[facility] ([facility])[address] [place] [address]YPGR NITROGEN/CREATININE (MASS RATIO) IN SER/PLAS16.9NormalUniversSelect Medical Specialty Hospital - YoungstownComment on above:Performed By: #### [id number] ####[facility] ([facility])[address] [place] [address]WAJ ABDOMEN W IV CONTRASTon 01-29-2024 CTA ABDOMEN W IV CONTRASTInvalid Interpretation CodeUnDunlap Memorial HospitalCTA CHEST W IV CONTRASTon [id number] CHEST W IV CONTRASTNormal [facility] Charles HospitalLACTIC ACID WITH 4 HOUR REFLEXon 01-29-2024 LACTATE (MMOL/L) IN SER/PLAS0.9 mmol/LNormal0.5-2.2UnDunlap Memorial HospitalComment on above:Performed By: #### [id number] ####[facility] ([facility])[address] [place] [address]TASCQEW (MMOL/L) IN SER/PLAS1.6 mmol/L Normal0.5-2.2UnDunlap Memorial HospitalComment on above:Performed By: #### [id number] ####[facility] ([facility])[address] [place] [address] LIPASEon 44-08-1157BMTAAC (U/L) IN SER/PLAS16 U/FNtpqkp69-56AhyfycdznsDunlap Memorial HospitalComment on above:Performed By: #### [id number] ####[facility] ([facility])[address] [place] [address]BKMOLPTKGzl 95-24-9772Glpimwxhg [Mass/Vol]2.4 mg/dLNormal1.9-2.7UnDunlap Memorial HospitalComment on above:Performed By: #### [id number] ####[facility] ([facility])[address] [place], [place] [address]Yczcspjpe [Mass/Vol]2.5 mg/dLNormal1.9-2.7UnDunlap Memorial HospitalComment on above:Performed By: #### [id number] ####[facility] ([facility])[address] [place], [place] [address]Syyzsghrz [Mass/Vol]2.7 mg/dLNormal1.9-2.7UnDunlap Memorial HospitalComment on above:Performed By: #### [id number] ####[facility] ([facility])[address] [place] [address] PHOSPHORUSon 55-99-7219Glqzkices [Mass/Vol]3.1 mg/dLNormal2.5-5.0UnDunlap Memorial HospitalComment on above:Performed By: #### [id number] ####[facility] ([facility])[address] [place], [place] [address]Iaycszkpw [Mass/Vol]3.3 mg/dLNormal2.5-5.0UnDunlap Memorial HospitalComment on above:Performed By: #### [id number] ####[facility] ([facility])[address] [place] [address] Magnesium [Mass/Vol]4.2 mg/dLNormal2.5-5.0UnDunlap Memorial Hospital Comment on above:Performed By: #### [id number] ####[facility] ([facility])[address] [place], [place] [address]OEMS GLUCOSE METER UNSOLICITED RESULTSon 01-29-2024 Glucose [Mass/Vol]127 mg/wCFlpv52-875UwmsrozhecDunlap Memorial HospitalComment on above:Order Comment: Waived Testing in the ED is performed under the ED CLIA certificate #[id number].Result Comment: lotjukl82Bjlxhimnz By: #### [id number] ####[facility] ([facility])[address] [place], [place] [address]Sxpnsrm [Mass/Vol]157 mg/jYZwtn87-381NicfsqaqzcDunlap Memorial HospitalComment on above:Order Comment: Waived Testing in the ED is performed under the ED CLIA certificate #[id number].Result Comment: wcxcjhy7Imkcjxbtp By: #### [id number] ####[facility] ([facility])[address] [place], [place] [address]Cdfuqjz [Mass/Vol]177 mg/nBCtje57-496YgfqkdmtjzDunlap Memorial HospitalComment on above:Order Comment: Waived Testing in the ED is performed under the ED CLIA certificate #[id number].Result Comment: [id number] By: #### [id number] ####[facility] ([facility])[address] [place], [place] [address]Wdwnhju [Mass/Vol]192 mg/aLQgdw27-390CpxwacuetjDunlap Memorial HospitalComment on above:Order Comment: Waived Testing in the ED is performed under the ED CLIA certificate #[id number].Result Comment: [id number] By: #### [id number] ####[facility] ([facility])[address] [place] [address]JHNQYGMXY, WHOLE BLOODon 84-76-2768Qvmzqxjxc [Moles/Vol]4.0 mmol/LNormal3.5-5.1UnDunlap Memorial HospitalComment on above:Performed By: #### POTASSIUM, WHOLE BLOOD ####[facility] [id number] [facility] [address] USASODIUM, WHOLE BLOODon 60-50-6659QNXZCF, WHOLE MGVUJ728Upizkp453-038WbyrrpgmqdDunlap Memorial HospitalComment on above:Performed By: #### SODIUM, WHOLE BLOOD ####[facility] [id number] [facility] [address] USATROPONIN Ion 01-29-2024 Troponin I.cardiac [Mass/Vol]0.02 ng/mLNormal0.00-0.04UnDunlap Memorial HospitalComment on above:Performed By: #### [id number] ####[facility] ([facility])[address] [facility] [place] [address]Rifkwfed I.cardiac [Mass/Vol]0.07 ng/mLHigh0.00-0.04UnDunlap Memorial HospitalComment on above:Performed By: #### [id number] ####[facility] ([facility])[address] [facility] [address] Troponin I.cardiac [Mass/Vol]0.03 ng/mLNormal0.00-0.04UnDunlap Memorial HospitalComment on above:Performed By: #### [id number] ####[facility] ([facility])[address] [place] [id number] 53-00-999918AyqwsvUmmbvkvsvz of [facility] HospitalWvuptq62VhjlkxPhjyclcdol [facility]itan HospitalANESon 95-12-3262MFFBUubvspFzugtjcyas [facility] HospitalANESNormalUniversity [facility]itan HospitalARTERIAL BLOOD GAS WITH CO-OXIMETRYon 75-70-5794Kqud excess Calc (Bld) [Moles/Vol]-2.0000 mmol/LNormal-2.0-3.0UnDunlap Memorial HospitalComment on above:Performed By: #### [id number] ####[facility] [id number] [place] [place] [address] USACARBOXYHEMOGLOBIN/HEMOGLOBIN TOTAL % IN BLOOD1.9 %Normal0.0-3.0UnDunlap Memorial HospitalComment on above: Performed By: #### [id number] ####[facility] SERVICES RESPIRATORY [id number] [place] [address] USACO2 (Bld) [Partial pressure]52 mm[Hg]Iywr56-58UtcxeskyuxDunlap Memorial HospitalComment on above:Performed By: #### [id number] ####[facility] RESPIRATORY [id number] [place] [address] USADEOXYGENATED HEMOGLOBIN IN BLOOD0.9 %Low1-5UnDunlap Memorial HospitalComment on above:Performed By: #### [id number] ####[facility] RESPIRATORY [id number] [place] [address] USAHCO3 (Bld) [Moles/Vol]25.0 mmol/MKzmzgn49.0-28.0[facility] Comment on above:Performed By: #### [id number] ####[facility] RESPIRATORY [id number] [place] [address] USAHemoglobin (Bld) [Mass/Vol]11.1 g/dLLow 11.7-17.4UnDunlap Memorial HospitalComment on above:Performed By: #### [id number] ####[facility] RESPIRATORY [id number] [place] [address] USALPM3 NormalUnDunlap Memorial HospitalComment on above:Performed By: #### [id number] ####[facility] RESPIRATORY [id number] [place] [address] [place] METHEMOGLOBIN/100 IN BLOOD0.9 %Normal0.0-1.5UnDunlap Memorial Hospital Comment on above:Performed By: #### [id number] ####[facility] RESPIRATORY [id number] [place] [address] USAOxygen (Bld) [Partial pressure]103 mm[Hg]High 83-100[facility] Charles HospitalComment on above:Performed By: #### [id number] ####[facility] RESPIRATORY [id number] [place] [address] USAOXYGEN SATURATION (%) IN ARTERIAL BLOOD99.1 %High94.0-98.0[facility] Charles HospitalComment on above:Performed By: #### [id number] ####[facility] RESPIRATORY [id number] [place] [address] USAOXYGENATED HEMOGLOBIN IN BLOOD96.3 %High90.0-95.0UnDunlap Memorial HospitalComment on above:Performed By: #### [id number] ####[facility] RESPIRATORY [id number] [place] [address] [place] pH (Bld)7.29 [pH]Low7.35-7.45UnDunlap Memorial HospitalComment on above:Performed By: #### [id number] ####[facility] RESPIRATORY [id number] [place] [address] USASOURCE OF OXYGENNasal cannulaNormalUniversity [facility] Samaritan HospitalComment on above:Performed By: #### [id number] ####[facility] RESPIRATORY [id number] [place] [address] USAB-TYPE NATRIURETIC PEPTIDEon 67-42-7870Heahickpmxf peptide B (Bld) [Mass/Vol]869 pg/mLHigh0-100UnDunlap Memorial HospitalComment on above:Performed By: #### [id number] ####[facility] LAB (BEAKER)[address] [place], [place] [address]ZXXWG METABOLIC PANELon 96-07-4875Slamf gap [Moles/Vol]11 mmol/LNormal7-20UnDunlap Memorial HospitalComment on above:Performed By: #### [id number] ####[facility] ([facility]AKER)[address] [place], [place] [address]Gwcrhok [Mass/Vol]8.2 mg/dLLow8.6-10.[address] [facility] HospitalComment on above:Performed By: #### [id number] ####[facility] ([facility])[address] [place] [address]Azflnune [Moles/Vol]106 mmol/MAtltym33-687PeqwftqjzrDunlap Memorial HospitalComment on above:Performed By: #### [id number] ####[facility] ([facility])[address] [place] [address]SE5 [Moles/Vol]26 mmol/CBvbwzm36-83ChifmkojypDunlap Memorial HospitalComment on above:Performed By: #### [id number] ####[facility] ([facility])[address] [place] [address]Mrlexmwsar [Mass/Vol]1.17 mg/dLNormal 0.60-1.20UnDunlap Memorial HospitalComment on above:Performed By: #### [id number] ####[facility] ([facility])[address] [place], [place] [address]RMIHTMRWJX FILTRATION RATE ML/MIN/1.73 SQ M.WOAITRSGJ89.2 mL/min/1.73m*2Low>60.0UnDunlap Memorial HospitalComment on above:Result Comment: [facility]???s estimated glomerular filtration rate (eGFR) will [...] By: #### [id number] ####[facility] ([facility])[address] [place] [address]Rxyspnp [Mass/Vol]161 mg/jGNytz97-759AurtqnlekmDunlap Memorial HospitalComment on above:Performed By: #### [id number] ####[facility] ([facility])[address] [place], [place] [address]Ktlmdboky [Moles/Vol]4.1 mmol/LNormal 3.5-5.1UnDunlap Memorial HospitalComment on above:Performed By: #### [id number] ####[facility] ([facility])[address] [place], [place] [address]Ygfwca [Moles/Vol]139 mmol/VHthmon423-590ZrynsxpjzoDunlap Memorial HospitalComment on above:Performed By: #### [id number] ####[facility] ([facility])[address] [place], [place] [address]Thlz nitrogen [Mass/Vol]20 mg/dLNormal7-25UnDunlap Memorial HospitalComment on above:Performed By: #### [id number] ####[facility] ([facility])[address] [place], [place] [address]TMEE NITROGEN/CREATININE (MASS RATIO) IN SER/PLAS17.1NormalUnDunlap Memorial HospitalComment on above: Performed By: #### [id number] ####[facility] ([facility])[address] [place], [place] [address]Tpbmq gap [Moles/Vol]8 mmol/LNormal7-20UnDunlap Memorial HospitalComment on above:Performed By: #### [id number] ####[facility] ([facility])[address] [place], [place] [address]Lxupbjo [Mass/Vol]8.8 mg/dLNormal 8.6-10.3UnDunlap Memorial HospitalComment on above:Performed By: #### [id number] ####[facility] ([facility])[address] [place], [place] [address]Oaypisem [Moles/Vol]105 mmol/QQxggsm64-048DvjzhmsrdsDunlap Memorial HospitalComment on above:Performed By: #### [id number] ####[facility] ([facility])[address] [place], [place] [address]WQ2 [Moles/Vol]29 mmol/MQzputs78-13IbrsrujsxqDunlap Memorial HospitalComment on above:Performed By: #### [id number] ####[facility] ([facility])[address] [place] [address]Pucwniipun [Mass/Vol]1.19 mg/dLNormal 0.60-1.20UnDunlap Memorial HospitalComment on above:Performed By: #### [id number] ####[facility] ([facility])[address] [place] [address]DOAYLRQLAZ FILTRATION RATE ML/MIN/1.73 SQ M.OFUYIZXRO02.2 mL/min/1.73m*2Low>60.0UnDunlap Memorial HospitalComment on above:Result Comment: [facility]???s estimated glomerular filtration rate (eGFR) will [...] By: #### [id number] ####[facility] ([facility])[address] [place] [address]Hmqttqs [Mass/Vol]97 mg/kBHlkegx49-697ZcpwxtmayfDunlap Memorial HospitalComment on above:Performed By: #### [id number] ####[facility] ([facility])[address] [place] [address]Gvcrlfvlr [Moles/Vol]3.7 mmol/LNormal 3.5-5.1UnDunlap Memorial HospitalComment on above:Performed By: #### [id number] ####[facility] ([facility])[address] [place] [address]Sklkes [Moles/Vol]138 mmol/ZWlxyiz310-568IpomamnidgDunlap Memorial HospitalComment on above:Performed By: #### [id number] ####[facility] ([facility])[address] [place] [address]Fmdj nitrogen [Mass/Vol]22 mg/dLNormal7-25UnDunlap Memorial HospitalComment on above:Performed By: #### [id number] ####[facility] ([facility])[address] [place] [address]ORWJ NITROGEN/CREATININE (MASS RATIO) IN SER/PLAS18.5NormalUniversSelect Medical Specialty Hospital - YoungstownComment on above: Performed By: #### [id number] ####[facility] ([facility])[address] [place] [address]ILWWKCX, IONIZEDon 21-52-8377BCPSFPZ IONIZED (MMOL/L) IN BLOOD1.17 mmol/LNormal1.15-1.33UnDunlap Memorial HospitalComment on above: Performed By: #### CALCIUM, IONIZED ####[facility] RESPIRATORY [id number] [place] [address] USACBC WITH AUTO DIFFERENTIALon 56-11-8259Ahnovxhot (Bld) [#/Vol]0.02 10*3/uLNormal0.00-0.20UnDunlap Memorial HospitalComment on above:Performed By: #### [id number] ####[facility] (BEAKER)[address] [place] [address]Tykbapymf/100 WBC (Bld)0.2 %Normal0.0-1.0UnDunlap Memorial HospitalComment on above:Performed By: #### [id number] ####[facility] ([facility])[address] [place] [address]Ekfeetqniyc (Bld) [#/Vol]0.02 10*3/uL Normal0.00-0.50UnDunlap Memorial HospitalComment on above:Performed By: #### [id number] ####[facility] (BEAKER)[address] [place] [address] Eosinophils/100 WBC (Bld)0.2 %Normal0.0-6.0UnDunlap Memorial Hospital Comment on above:Performed By: #### [id number] ####[facility] (BEAKER)[address] [place] [address]Rciivrajxza distribution width (RBC) [Ratio]16.4 % High11.5-15.0UnDunlap Memorial HospitalComment on above:Performed By: #### [id number] ####[facility] ([facility])[address] [place] [address] ERYTHROCYTE MEAN CORPUSCULAR HEMOGLOBIN CONCENTRATION (G/DL) BY MAIBTLTOD43.3 g/dLLow32.0-35.0UnDunlap Memorial HospitalComment on above:Performed By: #### [id number] ####[facility] ([facility])[address] [place], [place] [address]Txpyvptixa (Bld) [Volume fraction]34.2 %Low36.0-48.0UnDunlap Memorial HospitalComment on above:Performed By: #### [id number] ####[facility] ([facility])[address] [place], [place] [address]Bpevmtmsgq (Bld) [Mass/Vol]10.7 g/dL Low12.0-15.0UnDunlap Memorial HospitalComment on above:Performed By: #### [id number] ####[facility] ([facility])[address] [place] [address] Immature granulocytes (Bld) [#/Vol]0.09 10*3/uLNormal0.00-0.20UnDunlap Memorial HospitalComment on above:Performed By: #### [id number] ####[facility] ([facility])[address] [place], [place] [address]Yqduuqjm granulocytes/100 WBC (Bld)0.9 %Normal0.0-1.0UnDunlap Memorial HospitalComment on above: Performed By: #### [id number] ####[facility] ([facility])[address] [place], [place] [address]Irjyxfjszre (Bld) [#/Vol]1.01 10*3/uLLow1.20-4.00UnDunlap Memorial HospitalComment on above:Performed By: #### [id number] ####[facility] ([facility])[address] [place], [place] [address]Yvfgqhyjgsi/100 WBC (Bld) 9.6 %Low20.0-45.0UnDunlap Memorial HospitalComment on above:Performed By: #### [id number] ####[facility] ([facility])[address] [place] [address]BLI (RBC) [Entitic mass]28.0 dpQtmbnl14.0-33.0UnDunlap Memorial HospitalComment on above:Performed By: #### [id number] ####[facility] ([facility])[address] [place] [address] [place], [place] [address]NUD (RBC) [Entitic vol]89.5 fLNormal 82.0-98.0UnDunlap Memorial HospitalComment on above:Performed By: #### [id number] ####[facility] ([facility])[address] [place] [address] Monocytes (Bld) [#/Vol]0.18 10*3/uLNormal0.10-1.00UnDunlap Memorial HospitalComment on above:Performed By: #### [id number] ####[facility] ([facility])[address] [place] [address] [place] [address]Qgbworgum/100 WBC (Bld)1.7 %Low 5.0-12.0UnDunlap Memorial HospitalComment on above:Performed By: #### [id number] ####[facility] ([facility])[address] [place] [address] Neutrophils (Bld) [#/Vol]9.15 10*3/uLHigh1.60-7.60UnDunlap Memorial HospitalComment on above:Performed By: #### [id number] ####[facility] ([facility])[address] [facility], [place] [address]Rbwkitsfpst/100 WBC (Bld)87.4 %High 40.0-72.0UnDunlap Memorial HospitalComment on above:Performed By: #### [id number] ####[facility] ([facility])[address] [place] [address]MEPJ (PER 100 WBCS) BY AUTOMATED COUNT0.0 %Ptemnz7TlidxyhuguDunlap Memorial Hospital Comment on above:Performed By: #### [id number] ####[facility] ([facility])[address] [place] [address]QKUGKUGRC (10*3/UL) IN BLOOD AUTOMATED [id number] 10*3/oBIsphso232-167JnikrtlzgtDunlap Memorial HospitalComment on above: Performed By: #### [id number] ####[facility] ([facility])[address] [place] [address]GYT (Bld) [#/Vol]3.82 10*6/uLNormal3.80-5.00UnDunlap Memorial HospitalComment on above:Performed By: #### [id number] ####[facility] ([facility])[address] [place] [address]CAG (Bld) [#/Vol]10.47 10*3/uLNormal4.00-10.60UnDunlap Memorial HospitalComment on above: Performed By: #### [id number] ####[facility] (AKER)[address] [place] [address]Xesijbvki (Bld) [#/Vol]0.04 10*3/uLNormal0.00-0.20UnDunlap Memorial HospitalComment on above:Performed By: #### [id number] ####[facility] (BEAKER)[address] [place] [address]Jdeszdsba/100 WBC (Bld) 0.5 %Normal0.0-1.0UnDunlap Memorial HospitalComment on above:Performed By: #### [id number] ####[facility] (BEAKER)[address] [place] [address]Fkpoandjknv (Bld) [#/Vol]0.21 10*3/uLNormal0.00-0.50UnDunlap Memorial HospitalComment on above:Performed By: #### [id number] ####[facility] (BEAKER)[address] [place] [address]Tfpklstocai/100 WBC (Bld)2.8 %Normal 0.0-6.0UnDunlap Memorial HospitalComment on above:Performed By: #### [id number] ####[facility] ([facility])[address] [place] [address] Erythrocyte distribution width (RBC) [Ratio]16.3 %High11.5-15.0UnDunlap Memorial HospitalComment on above:Performed By: #### [id number] ####[facility] ([facility])[address] [place], [place] [address]LREKVUQEMGY MEAN CORPUSCULAR HEMOGLOBIN CONCENTRATION (G/DL) BY TZIURQMMS49.6 g/dLLow32.0-35.[address] [facility] HospitalComment on above:Performed By: #### [id number] ####[facility] ([facility])[address] [place], [place] [address]Igolpocnel (Bld) [Volume fraction]34.5 %Low36.0-48.0UnDunlap Memorial HospitalComment on above:Performed By: #### [id number] ####[facility] ([facility])[address] [place], [place] [address]Tmetuguqrj (Bld) [Mass/Vol]10.9 g/dLLow12.0-15.0UnDunlap Memorial HospitalComment on above:Performed By: #### [id number] ####[facility] ([facility])[address] [place], [place] [address]Pthfnvfs granulocytes (Bld) [#/Vol]0.04 10*3/uLNormal0.00-0.20UnDunlap Memorial Hospital Comment on above:Performed By: #### [id number] ####[facility] ([facility])[address] [place], [place] [address]Xswdnrjx granulocytes/100 WBC (Bld)0.5 %Normal 0.0-1.0UnDunlap Memorial HospitalComment on above:Performed By: #### [id number] ####[facility] ([facility])[address] [place] [address] Lymphocytes (Bld) [#/Vol]1.83 10*3/uLNormal1.20-4.00UnDunlap Memorial HospitalComment on above:Performed By: #### [id number] ####[facility] ([facility])[address] [place], [place] [address]Ykbuqeytnbf/100 WBC (Bld)24.8 %Normal 20.0-45.0UnDunlap Memorial HospitalComment on above:Performed By: #### [id number] ####[facility] ([facility])[address] [place], [place] [address]CMJ (RBC) [Entitic mass]28.0 esEmhwad23.0-33.0UnDunlap Memorial Hospital Comment on above:Performed By: #### [id number] ####[facility] ([facility])[address] [place], [place] [address]BVI (RBC) [Entitic vol]88.7 aUOioyqg60.0-98.[address] [facility] HospitalComment on above:Performed By: #### [id number] ####[facility] ([facility])[address] [place], [place] [address]Jqeowxycw (Bld) [#/Vol]0.70 10*3/uLNormal0.10-1.00UnDunlap Memorial HospitalComment on above:Performed By: #### [id number] ####[facility] ([facility])[address] [place] [place], [place] [address]Hdhcmzdke/100 WBC (Bld)9.5 %Normal5.0-12.0UnDunlap Memorial HospitalComment on above:Performed By: #### [id number] ####[facility] ([facility])[address] [place], [place] [address]Ibguvbrdqrt (Bld) [#/Vol] 4.57 10*3/uLNormal1.60-7.60UnDunlap Memorial HospitalComment on above: Performed By: #### [id number] ####[facility] ([facility])[address] [place] [address]Irytowcsibb/100 WBC (Bld)61.9 %Gtbkbf48.0-72.0UnDunlap Memorial HospitalComment on above:Performed By: #### [id number] ####[facility] ([facility])[address] [place] [address]TAIE (PER 100 WBCS) BY AUTOMATED COUNT0.0 %Melvnv2ItnzymymkxDunlap Memorial HospitalComment on above: Performed By: #### [id number] ####[facility] ([facility])[address] [place] [address]SEQIWEXWX (10*3/UL) IN BLOOD AUTOMATED [id number] 10*3/uLNormal 150-400UnDunlap Memorial HospitalComment on above:Performed By: #### [id number] ####[facility] ([facility])[address] [place] [address]TWC (Bld) [#/Vol]3.89 10*6/uLNormal3.80-5.00UnDunlap Memorial Hospital Comment on above:Performed By: #### [id number] ####[facility] ([facility])[address] [place] [address]BMX (Bld) [#/Vol]7.39 10*3/uLNormal4.00-10.[address] [facility] HospitalComment on above:Performed By: #### [id number] ####[facility] ([facility])[address] [place] [address]UYMMZLVso 24-34-6920UHLHLTMRzjvmgIaaomatapx [facility]itan HospitalCONSULTNormal [facility] HospitalMAGNESIUMon 84-07-0977Lfrlpjiea [Mass/Vol]1.9 mg/dLNormal1.9-2.7UnDunlap Memorial HospitalComment on above:Performed By: #### [id number] ####[facility] ([facility])[address] [place] [address]Prvahweyx [Mass/Vol]1.8 mg/dLLow1.9-2.7[facility] Comment on above:Performed By: #### [id number] ####[facility] ([facility])[address] [place], [place] [address]XKPY/MSSA DNA NASALon 51-99-6188POYT DNANegative NormalNegativeMercy Health St. Charles HospitalComment on above:Order Comment: Testing methodology is [...] does not preclude nasal colonization.Performed By: #### [id number] ####[facility] ([facility])[address] [place], [place] [address]AUOQ DNANegative NormalNegativeUnDunlap Memorial HospitalComment on above:Order Comment: Testing methodology is [...] does not preclude nasal colonization.Performed By: #### [id number] ####[facility] ([facility])[address] [place], [place] [address]XOATHDPGig 91-42-3510PRQZZGTAJQCSGQ: 41.9 MIN K: 1723 MGY CONTRAST: 80 MLNormalUnDunlap Memorial HospitalNURSNOTEACT 225Normal [facility] HospitalNURSNOTEOk per Dr Van to give amiodarone patient HR 53NormalUniversSelect Medical Specialty Hospital - YoungstownOPNOTEon 52-56-7368RJVGCT NormalUnDunlap Memorial HospitalPHOSPHORUSon 56-97-5507Edyqvasdx [Mass/Vol]4.5 mg/dLNormal2.5-5.0[facility] Charles HospitalComment on above:Performed By: #### [id number] ####[facility] ([facility])[address] [place], [place] [address]KZQJ ACTIVATED CLOTTING TIME UNSOLICITED RESULTSon 01-28-2024 POC ACTIVATED CLOTTING [id number] fbpQqep49-349KteqbhmzdyDunlap Memorial Hospital Comment on above:Performed By: #### [id number] ####[facility] ([facility])[address] [place], [place] [address]HEVT GLUCOSE METER UNSOLICITED RESULTSon 01-28-2024 Glucose [Mass/Vol]112 mg/kOZpjb33-367IhfpywbfbqDunlap Memorial HospitalComment on above:Order Comment: Waived Testing in the ED is performed under the ED CLIA certificate #[id number].Result Comment: [id number] By: #### [id number] ####[facility] ([facility])[address] [place], [place] [address]Npsnirf [Mass/Vol]105 mg/iHYssffe47-772BooutnblmnDunlap Memorial HospitalComment on above:Order Comment: Waived Testing in the ED is performed under the ED CLIA certificate #[id number].Result Comment: ivllke61Jstkvrvks By: #### [id number] ####[facility] ([facility])[address] [place], [place] [address]TSSB PERFUSION PANEL UNSOLICITED RESULTSon 99-40-8292GS4 [Moles/Vol]29.0 mmol/FHysyzq78.0-29.[address] Charles HospitalComment on above:Performed By: #### [id number] ####[facility] ([facility])[address] [place], [place] [address]Wbnoksv [Mass/Vol]139 mg/rSXaur02-021ZxysxetyzkDunlap Memorial HospitalComment on above:Performed By: #### [id number] ####[facility] ([facility])[address] [place], [place] [address]JUO4 (Bld) [Moles/Vol]27.9 mmol/BQsingf55.0-28.0UnDunlap Memorial HospitalComment on above:Performed By: #### [id number] ####[facility] ([facility])[address] [place] [address]Sjypzfycwx (Bld) [Volume fraction]33 %Fpt29-50ZgpqbbfdrfDunlap Memorial HospitalComment on above: Performed By: #### [id number] ####[facility] ([facility])[address] [place] [address]Jkpooluwol (Bld) [Mass/Vol]11.2 g/dLLow12.0-17.0UnDunlap Memorial HospitalComment on above:Performed By: #### [id number] ####[facility] ([facility])[address] [place] [address]BBBP BASE EXCESS2.0 mmol/LNormal-2.0-3.0UnDunlap Memorial HospitalComment on above: Performed By: #### [id number] ####[facility] ([facility])[address] [place] [address]RAIJ IONIZED CALCIUM1.22 mmol/LNormal1.12-1.32UnDunlap Memorial HospitalComment on above:Performed By: #### [id number] ####[facility] ([facility])[address] [place] [address]GAZC OUL513.6 mmHgNormal 41.0-51.0UnDunlap Memorial HospitalComment on above:Performed By: #### [id number] ####[facility] ([facility])[address] [place] [address]GBNL PH 7.96Aqzylh9.31-7.41UnDunlap Memorial HospitalComment on above:Performed By: #### [id number] ####[facility] ([facility])[address] [place] [address]EMZG [id number] nuYuMcgb57-683XcojcbuumsDunlap Memorial HospitalComment on above:Performed By: #### [id number] ####[facility] ([facility])[address] [place] [address]JJXP SO298 %Mjcpab35-80FxqugxoymxDunlap Memorial Hospital Comment on above:Performed By: #### [id number] ####[facility] ([facility])[address] [place] [address]Mykbrwmec [Moles/Vol]4.0 mmol/LNormal3.5-4.[address] [facility] HospitalComment on above:Performed By: #### [id number] ####[facility] ([facility])[address] [place] [address]Ulajbx [Moles/Vol]142 mmol/XHkyjqs340.0-146.0UnDunlap Memorial HospitalComment on above:Performed By: #### [id number] ####[facility] ([facility])[address] [place] [address]TMCVQXZTT, WHOLE BLOODon 40-49-3776Qyyxzgyiv [Moles/Vol]3.9 mmol/LNormal3.5-5.1UnDunlap Memorial HospitalComment on above:Performed By: #### POTASSIUM, WHOLE BLOOD ####[facility]PIRATORY [id number] [place] [address] USAPROTIME-INRon 18-52-6078UVN IN PPP BY COAGULATION ASSAY1.38Mgxf7.90-1.10UnDunlap Memorial HospitalComment on above:Result Comment: ACC RECOMMENDED INR FOR [facility]ARFARIN THERAPY CONDITION INRPROPHYLAXIS OF VENOUS THROMBOSIS 2-3(HIGH-RISK SURGERY)TREATMENT OF VENOUS THROMBOSIS 2-3TREATMENT OF PULMONARY EMBOLISM 2-3PREVENTION OF SYSTEMIC EMBOLISM: 2-3 ACUTE MYOCARDIAL INFARCTION TISSUE HEART VALVES VALVULAR HEART DISEASE ATRIAL FIBRILLATION RECURRENT SYSTEMIC EMBOLISMMECHANICAL HEART VALVE 2.5-3.5 FROM: ORAL ANTICOAGULANTS. MECHANISM OF ACTION, CLINICAL EFFECTIVENESS, AND OPTIMAL THERAPE UTIC RANGE. CHEST 1995;108:231S-246S.Performed By: #### [id number] ####[facility] ([facility])[address] [place], [place] [address]KRAIIITZICJ TIME (PT) IN PPP BY COAGULATION ASSAY14.5 HizmsihImwzht60.3-14.8UnDunlap Memorial HospitalComment on above:Performed By: #### [id number] ####[facility] ([facility])[address] [place] [place], [place] [address]IKQUFD, WHOLE BLOODon 01-28-2024 SODIUM, WHOLE [id number]unlap Memorial HospitalComment on above:Performed By: #### SODIUM, WHOLE BLOOD ####[facility] RESPIRATORY [id number] [place] [address] VZT51ru 62-86-657267UnyoxwPhqwyiwolz of [facility] Medical CenterAPTTon 13-54-8131LBKVVRVUR PARTIAL THROMBOPLASTIN TIME IN PPP BY COAGULATION ASSAY32.6 IwnaoynRfiaik91.0-35.0UnDunlap Memorial Hospital Comment on above:Result Comment: Clinical significance of the APTT is questionable in the presence of heparin.Performed By: #### [id number] ####[facility] ([facility])[address] [place], [place] [address]KYS WITH AUTO DIFFERENTIALon 79-97-0464Zcwmykkle (Bld) [#/Vol]0.03 10*3/uLNormal0.00-0.[address] Charles HospitalComment on above:Performed By: #### [id number] ####[facility] ([facility])[address] [place], [place] [address]Mszvysvxq/100 WBC (Bld)0.4 %Normal0.0-1.0UnDunlap Memorial HospitalComment on above: Performed By: #### [id number] ####[facility] ([facility])[address] [place], [place] [address]Qvtrhyqwrzv (Bld) [#/Vol]0.20 10*3/uLNormal0.00-0.[address] Charles HospitalComment on above:Performed By: #### [id number] ####[facility] ([facility])[address] [place] [address]Amfdmglkcsy/100 WBC (Bld)2.7 %Normal0.0-6.0UnDunlap Memorial HospitalComment on above: Performed By: #### [id number] ####[facility] ([facility])[address] [place], [place] [address]Vdzdietolyy distribution width (RBC) [Ratio]15.8 %High 11.5-15.0UnDunlap Memorial HospitalComment on above:Performed By: #### [id number] ####[facility] ([facility])[address] [place] [address] ERYTHROCYTE MEAN CORPUSCULAR HEMOGLOBIN CONCENTRATION (G/DL) BY PQDLAPOXY06.0 g/dGGjalns84.0-35.0UnDunlap Memorial HospitalComment on above:Performed By: #### [id number] ####[facility] ([facility])[address] [place], [place] [address]Hiclfyhetu (Bld) [Volume fraction]36.3 %Xqtbnp49.0-48.0UnDunlap Memorial HospitalComment on above:Performed By: #### [id number] ####[facility] ([facility])[address] [place], [place] [address]Dyhvgbynfk (Bld) [Mass/Vol]11.6 g/dL Low12.0-15.0UnDunlap Memorial HospitalComment on above:Performed By: #### [id number] ####[facility] ([facility])[address] [place] [address] Immature granulocytes (Bld) [#/Vol]0.05 10*3/uLNormal0.00-0.20UnDunlap Memorial HospitalComment on above:Performed By: #### [id number] ####[facility] ([facility])[address] [place] [address]Lrowoujx granulocytes/100 WBC (Bld)0.7 %Normal0.0-1.0UnDunlap Memorial HospitalComment on above: Performed By: #### [id number] ####[facility] ([facility])[address] [place] [address]Qxzbjzwidmd (Bld) [#/Vol]1.81 10*3/uLNormal1.20-4.[address] Charles HospitalComment on above:Performed By: #### [id number] ####[facility] ([facility])[address] [place], [place] [address]Ycgklkeenlo/100 WBC (Bld)24.0 %Zhsvou74.0-45.0UnDunlap Memorial HospitalComment on above:Performed By: #### [id number] ####[facility] ([facility])[address] [place], [place] [address]BJP (RBC) [Entitic mass]28.6 acFpmoii03.0-33.0UnDunlap Memorial HospitalComment on above:Performed By: #### [id number] ####[facility] ([facility])[address] [place], [place] [address]QSE (RBC) [Entitic vol] 89.6 kZPnoxbl43.0-98.0UnDunlap Memorial HospitalComment on above: Performed By: #### [id number] ####[facility] ([facility])[address] [place], [place] [address]Orzijeuya (Bld) [#/Vol]0.62 10*3/uLNormal0.10-1.00[facility] Charles HospitalComment on above:Performed By: #### [id number] ####[facility] ([facility])[address] [place], [place] [address]Gyxjtcgcm/100 WBC (Bld) 8.2 %Normal5.0-12.0UnDunlap Memorial HospitalComment on above:Performed By: #### [id number] ####[facility] ([facility])[address] [place] [address]Tocvxpseifz (Bld) [#/Vol]4.82 10*3/uLNormal1.60-7.60UnDunlap Memorial HospitalComment on above:Performed By: #### [id number] ####[facility] ([facility])[address] [place] [address]Keobzmegzdo/100 WBC (Bld)64.0 %Normal 40.0-72.0UnDunlap Memorial HospitalComment on above:Performed By: #### [id number] ####[facility] ([facility])[address] [place] [place] [address]KNRT (PER 100 WBCS) BY AUTOMATED COUNT0.0 %Ohrvzy4IkjhensnfgDunlap Memorial Hospital Comment on above:Performed By: #### [id number] ####[facility] ([facility])[address] [place] [address]QKBXWOMMP (10*3/UL) IN BLOOD AUTOMATED [id number] 10*3/tIBoqzvs272-121TmcshntkmiDunlap Memorial HospitalComment on above: Performed By: #### [id number] ####[facility] ([facility])[address] [place] [address]ZMX (Bld) [#/Vol]4.05 10*6/uLNormal3.80-5.00UnDunlap Memorial HospitalComment on above:Performed By: #### [id number] ####[facility] ([facility])[address] [place] [address]JKA (Bld) [#/Vol]7.53 10*3/uLNormal4.00-10.60UnDunlap Memorial HospitalComment on above: Performed By: #### [id number] ####[facility] ([facility])[address] [place] [address]JTBTKASNMUTIA METABOLIC PANELon 17-13-8034Dgwtomg [Mass/Vol] 3.7 g/dLNormal3.5-5.7UnDunlap Memorial HospitalComment on above: Performed By: #### [id number] ####[facility] ([facility])[address] [place], [place] [address]AUV [Catalytic activity/Vol]81 U/PBxfdhu94-389RlismszuwmDunlap Memorial HospitalComment on above:Performed By: #### [id number] ####[facility] ([facility])[address] [place], [place] [address]HTT [Catalytic activity/Vol]9 U/L Normal7-52UnDunlap Memorial HospitalComment on above:Performed By: #### [id number] ####[facility] ([facility])[address] [place], [place] [address]Ejqjj gap [Moles/Vol]10 mmol/LNormal7-20UnDunlap Memorial HospitalComment on above:Performed By: #### [id number] ####[facility] ([facility])[address] [place], [place] [address]NGK [Catalytic activity/Vol]13 U/UBagkct74-46SczqwadyicDunlap Memorial HospitalComment on above:Performed By: #### [id number] ####[facility] ([facility])[address] [place], [place] [address]Oxqbksrtj [Mass/Vol]0.8 mg/dL Normal0.3-1.0UnDunlap Memorial HospitalComment on above:Performed By: #### [id number] ####[facility] ([facility])[address] [place] [address] Calcium [Mass/Vol]9.0 mg/dLNormal8.6-10.3UnDunlap Memorial Hospital Comment on above:Performed By: #### [id number] ####[facility] ([facility])[address] [place], [place] [address]Srcfliqh [Moles/Vol]106 mmol/JXfsnxg71-[address] [facility] HospitalComment on above:Performed By: #### [id number] ####[facility] ([facility])[address] [place], [place] [address]ID6 [Moles/Vol] 27 mmol/TLkndjz87-19KhsqfqxajiDunlap Memorial HospitalComment on above: Performed By: #### [id number] ####[facility] ([facility])[address] [place] [address]Mnlupsmkmi [Mass/Vol]1.14 mg/dLNormal0.60-1.20UnDunlap Memorial HospitalComment on above:Performed By: #### [id number] ####[facility] ([facility])[address] [place] [address]OWXUGEAXGG FILTRATION RATE ML/MIN/1.73 SQ M.JNZPKRGCZ69.7 mL/min/1.73m*2Low>60.0UnDunlap Memorial Hospital Comment on above:Result Comment: [facility]???s estimated glomerular filtration rate (eGFR) will [...] By: #### [id number] ####[facility] ([facility])[address] [place] [address]Cvlinnm [Mass/Vol]88 mg/yVKvgfor44-974NswsjqhkloDunlap Memorial HospitalComment on above:Performed By: #### [id number] ####[facility] ([facility])[address] [place], [place] [address]Iusbysuet [Moles/Vol]3.8 mmol/LNormal3.5-5.1UnDunlap Memorial HospitalComment on above:Performed By: #### [id number] ####[facility] ([facility])[address] [place], [place] [address]Vapxpwo [Mass/Vol]5.9 g/dLLow 6.0-8.3UnDunlap Memorial HospitalComment on above:Performed By: #### [id number] ####[facility] ([facility])[address] [place], [place] [address]Dgcewi [Moles/Vol]139 mmol/EShlzdz730-522UbzdsgirlmDunlap Memorial HospitalComment on above:Performed By: #### [id number] ####[facility] ([facility])[address] [place], [place] [address]Erzw nitrogen [Mass/Vol]20 mg/dLNormal7-25UnDunlap Memorial HospitalComment on above:Performed By: #### [id number] ####[facility] ([facility])[address] [place], [place] [address]ZMYI NITROGEN/CREATININE (MASS RATIO) IN SER/PLAS17.5NormalUniversSelect Medical Specialty Hospital - YoungstownComment on above: Performed By: #### [id number] ####[facility] ([facility])[address] [facility], [place] [address]DLUNRRQzu 18-03-1859UEJNJNZLwvqjkNulfdwhbju of [facility] Medical CenterCT ABDOMEN PELVIS W IV CONTRASTon 67-64-4403GFL ABDOMEN PELVIS W IV CONTRASTNormal [facility] Charles HospitalCT CHEST W IV CONTRASTon 65-15-7004CSR CHEST W IV CONTRASTNormalUniversity Baylor Scott & White Medical Center – IrvingPROVon 86-31-5210YJVDES NormalUnDunlap Memorial HospitalHPon 62-73-1197LAUoxbpvPssfzhggza of [facility] Medical CenterLACTIC ACID WITH 4 HOUR REFLEXon 31-31-1858RCILNUU (MMOL/L) IN SER/PLAS0.7 mmol/LNormal0.5-2.2UnDunlap Memorial HospitalComment on above:Performed By: #### [id number] ####[facility] ([facility])[address] [place], [place] [address]XSAXADnb 99-47-7206ZDDDDE (U/L) IN SER/PLAS18 U/CSocyln31-[address] Charles HospitalComment on above:Performed By: #### [id number] ####[facility] ([facility])[address] [place], [place] [address]SFMRARBCWeu 41-64-0112Myebrpwam [Mass/Vol]1.9 mg/dLNormal1.9-2.7UnDunlap Memorial HospitalComment on above:Performed By: #### [id number] ####[facility] ([facility])[address] [place] [address]ZHCZ GLUCOSE METER UNSOLICITED RESULTS on 05-65-2929Fxszmvj [Mass/Vol]158 mg/kHTiwj77-810QzowqpgdoaDunlap Memorial HospitalComment on above:Order Comment: Waived Testing in the ED is performed under the ED CLIA certificate #[id number].Result Comment: [id number] By: #### [id number] ####[facility] ([facility])[address] [place] [address] Glucose [Mass/Vol]86 mg/bKKacvlm32-142QkseerhfdlDunlap Memorial HospitalComment on above:Order Comment: Waived Testing in the ED is performed under the ED CLIA certificate #[id number].Result Comment: [id number] By: #### [id number] ####[facility] ([facility])[address] [place] [address]Ljtdunx [Mass/Vol]99 mg/iZJbifpo77-752PtppmpyqgpDunlap Memorial HospitalComment on above:Order Comment: Waived Testing in the ED is performed under the ED CLIA certificate #[id number].Result Comment: hnnwerf32Cysuzmznv By: #### [id number] ####[facility] ([facility])[address] [place] [address]FCGYTOJ-TQLgj 27-89-2539GUH IN PPP BY COAGULATION ASSAY1.94Wjpj2.90-1.10UnDunlap Memorial HospitalComment on above:Result Comment: ACCCP RECOMMENDED INR FOR WARFARIN THERAPY CONDITION INRPROPHYLAXIS OF VENOUS THROMBOSIS 2-3(HIGH-RISK SURGERY)TREATMENT OF VENOUS THROMBOSIS 2-3TREATMENT OF PULMONARY EMBOLISM 2-3PREVENTION OF SYSTEMIC EMBOLISM: 2-3 ACUTE MYOCARDIAL INFARCTION TISSUE HEART VALVES VALVULAR HEART DISEASE ATRIAL FIBRILLATION RECURRENT SYSTEMIC EMBOLISMMECHANICAL HEART VALVE 2.5-3.5 FROM: ORAL ANTICOAGULANTS. MECHANISM OF ACTION, CLINICAL EFFECTIVENESS, AND OPTIMAL THERAPE UTIC RANGE. CHEST 1995;108:231S-246S.Performed By: #### [id number] ####[facility] ([facility])[address] [place], [place] [address]YOGBWWQXPHR TIME (PT) IN PPP BY COAGULATION ASSAY14.8 HmkfbkqBlsedb00.3-14.8UnDunlap Memorial HospitalComment on above:Performed By: #### [id number] ####[facility] ([facility])[address] [place], [place] [address]GTYLFJXB Ion 46-60-0808Hyopnxpa I.cardiac [Mass/Vol]0.02 ng/mLNormal0.00-0.04UnDunlap Memorial Hospital Comment on above:Performed By: #### [id number] ####[facility] ([facility])[address] [place], [place] [address]TJAF AND SCREENon 86-02-1140FS SCREENNegativeNormal [facility] Charles HospitalComment on above:Performed By: #### [id number] ####[facility] BLOOD [facility],ABO group Nom (Bld)ONormalUnDunlap Memorial HospitalComment on above:Performed By: #### [id number] ####[facility],RH TYPE IN BLOODPositiveNormalUniversSelect Medical Specialty Hospital - YoungstownComment on above:Performed By: #### [id number] ####[facility],36on 36-03-682825MgufsrSrphansuhb of [facility] Medical CenterAlanine aminotransferase [Enzymatic activity/volume] in Serum or PlasmaOrdered By: Anju Lees on 07-97-2149MGU [Catalytic activity/Vol]11 U/L 7-52[facility] CenterAlbumin [Mass/volume] in Serum or Plasma by Bromocresol green (BCG) dye binding methoOrdered By: Anju Lees on 78-31-5064Atsjbxc BCG dye [Mass/Vol]3.7 g/dL3.5-5.7FBerger HospitalAlkaline phosphatase [Enzymatic activity/volume] in Serum or PlasmaOrdered By: Anju Lees on 42-50-9460VXE [Catalytic activity/Vol]110 U/L34-104 [facility] Medical CenterAspartate aminotransferase [Enzymatic activity/volume] in Serum or PlasmaOrdered By: Anju Lees on 15-81-1636BWA [Catalytic activity/Vol]16 U/R41-44XpoqhewetUniversity Hospitals Cleveland Medical CenterBasophils Auto (Bld) [#/Vol]Ordered By: Anju Lees 19-88-6452Jtvpkkwrx (Bld) [#/Vol]0.1 10*3/uL0.0-0.2FBerger HospitalBasophils/100 WBC Auto (Bld)Ordered By: Anju Lees 84-58-6596Eietmfxya/100 WBC (Bld)0.6 %. [facility] Medical CenterBilirubin.total [Mass/volume] in Serum or PlasmaOrdered By: Anju Lees 43-25-0751Tcpeavrna [Mass/Vol]0.5 mg/dL 0.3-1.0[facility] Medical CenterCalcium [Mass/volume] in Serum or Plasma Ordered By: Anju Lees 51-73-4618Cnfmpwu [Mass/Vol]9.5 mg/dL8.6-10.3 [facility] CenterCarbon dioxide, total [Moles/volume] in Serum or PlasmaOrdered By: Anju Lees 58-33-6691LW9 [Moles/Vol]31.9 mmol/L 21.0-31.0[facility] Medical CenterChloride [Moles/volume] in Serum or PlasmaOrdered By: Anju Lees 52-68-9540Qgixbwgc [Moles/Vol]102 mmol/L 98-107[facility] CenterCreatinine [Mass/volume] in Serum or PlasmaOrdered By: Anju Lees on 63-98-6525Qdnetowryy [Mass/Vol]1.01 mg/dL 0.60-1.20[facility] Medical CenterEosinophils Auto (Bld) [#/Vol]Ordered By: Anju Lees on 25-86-5814Rgstjjtecrq (Bld) [#/Vol]0.3 10*3/uL0.0-0.45 [facility] CenterEosinophils/100 WBC Auto (Bld)Ordered By: Anju Lees on 07-42-4878Flagsgcwpsz/100 WBC (Bld)3.1 %.[facility] Medical CenterErythrocyte distribution width Auto (RBC) [Ratio]Ordered By: Anju Lees on 11-38-9495Rmkdlfpvxlp distribution width (RBC) [Ratio]16.3 % 11.9-15.3FBerger HospitalGlobulin Calc (S) [Mass/Vol]Ordered By: Anju Lees on 42-42-8923Adhjrwiy (S) [Mass/Vol]2.0 g/dLUniversity Hospitals Cleveland Medical CenterGlucose [Mass/volume] in Serum or PlasmaOrdered By: Anju Lees on 78-97-4891Rmmddyg [Mass/Vol]89 mg/vK30-276PpserlxwlUniversity Hospitals Cleveland Medical CenterHematocrit Auto (Bld) [Volume fraction]Ordered By: Anju Lees on 09-53-6096Objtcwiuch (Bld) [Volume fraction]33.3 %34.0-46.4FBerger HospitalHemoglobin [Mass/volume] in BloodOrdered By: Anju Lees on 27-22-5267Fyehpecbdl (Bld) [Mass/Vol]11.1 g/dL11.8-15.4FBerger HospitalLeukocytes [#/volume] corrected for nucleated erythrocytes in Blood by Automated counOrdered By: Anju Lees on 11-67-3869MUX corrected for nucl RBC Auto (Bld) [#/Vol]9.1 10*3/uL3.8-11.6FBerger Hospital Lymphocytes Auto (Bld) [#/Vol]Ordered By: Anju Lees on 04-17-2023 Lymphocytes (Bld) [#/Vol]2.1 10*3/uL1.00-4.8[facility] Lymphocytes/100 WBC Auto (Bld)Ordered By: Anju Lees on 04-17-2023 Lymphocytes/100 WBC (Bld)22.7 %.[facility] HospitalH Auto (RBC) [Entitic mass]Ordered By: Anju Lees on 00-01-8916MRP (RBC) [Entitic mass] 27.9 pg24.7-34.3FBerger HospitalMCHC Auto (RBC) [Mass/Vol] Ordered By: Anju Lees on 36-98-5480FNYB (RBC) [Mass/Vol]33.4 g/dL32.0-35.0 [facility] Medical CenterMCV Auto (RBC) [Entitic vol]Ordered By: Anju Lees on 58-33-7425VNV (RBC) [Entitic vol]83.3 xB02-550EpvkecdykUniversity Hospitals Cleveland Medical CenterMonocytes Auto (Bld) [#/Vol]Ordered By: Anju Lees on 45-01-5079Xcivjyzvq (Bld) [#/Vol]0.6 10*3/uL0.0-0.8[facility] Medical CenterMonocytes/100 WBC Auto (Bld)Ordered By: Anju Lees on 04-17-2023 Monocytes/100 WBC (Bld)6.5 %.[facility] Medical CenterNeutrophils Auto (Bld) [#/Vol]Ordered By: Anju Lees on 32-16-1302Yeyzfcmtpii (Bld) [#/Vol] 6.1 10*3/uL1.8-7.7FBerger HospitalNeutrophils/100 WBC Auto (Bld)Ordered By: Anju Lees on 51-27-0198Hyfgvhkfwni/100 WBC (Bld)67.1 %. [facility] Medical CenterNo Panel InformationOrdered By: Anju Lees on 40-79-4047Iiomczwau GFR (CKD-EPI)56.627 mL/MinFirelands Regional Medical CenterPharmacy Creatinine Clearance (ChemN/AFBerger Hospital Nucleated erythrocytes [Presence] in Blood by Automated countOrdered By: Anju Lees on 14-33-2119Esabravjb RBC Auto Ql (Bld)0.1 /100{WBC}0-0.5FBerger HospitalPlatelet mean volume Auto (Bld) [Entitic vol]Ordered By: Anju Lees on 78-62-4744Glcxslaz mean volume (Bld) [Entitic vol]8.7 fL 6.3-10.7FBerger HospitalPlatelets Auto (Bld) [#/Vol]Ordered By: Anju Lees on 20-77-7962Podroemze (Bld) [#/Vol]249 10*3/pV784-852MzcnajjjoUniversity Hospitals Cleveland Medical CenterPotassium [Moles/volume] in Serum or PlasmaOrdered By: Anju Lees on 74-93-6271Pysaajhwf [Moles/Vol]4.2 mmol/L3.5-5.1FBerger HospitalProtein [Mass/volume] in Serum or PlasmaOrdered By: Anju Lees on 42-72-2571Kgaivuq [Mass/Vol]5.7 g/dL6.4-8.9[facility] Medical CenterRBC Auto (Bld) [#/Vol]Ordered By: Anju Lees on 75-32-6542BRF (Bld) [#/Vol]4.00 10*6/uL3.60-5.00Magruder Hospitalerum or plasma albumin/globulin mass ratioOrdered By: Anju Lees on 04-17-2023 Albumin/Globulin [Mass ratio]1.9 {ratio}Magruder Hospitalerum or plasma anion gap determinationOrdered By: Anju Lees on 04-51-5236Dpgxc gap [Moles/Vol]10.3 mmol/L6.0-15.0Magruder Hospitalodium [Moles/volume] in Serum or PlasmaOrdered By: Anju Lees on 42-23-5683Uuteet [Moles/Vol]140 mmol/E023-662YvabgtmvlUniversity Hospitals Cleveland Medical CenterUrea nitrogen [Mass/volume] in Serum or PlasmaOrdered By: Anju Lees on 45-59-1198Ausu nitrogen [Mass/Vol]23 mg/dL7-25[facility] Medical CenterWBC Auto (Bld) [#/Vol]Ordered By: Anju Lees on 66-35-5288XRU (Bld) [#/Vol]9.1 10*3/uL 3.8-11.6FBerger HospitalECHOCARDIO M/2D COMPLETEon 05-29-2022 ECHOCARDIO M/2D COMPLETEPatient: SHAYY MAYNARD Exam Date: 05/29/2022 : 1945 Gender:F Ordering : DR VELASQUEZ BUNCH . Admission #: [id number] Family : Order #: [id number] CLICK HERE TO VIEW EXAM ECHOCARDIOGRAM REPORT [...] by: Moises Shore M.D. on 05/30/2022 at 18:32[facility] HospitalMRI BRAIN WO CONon 42-22-6052CMK BRAIN WO CONEXAMINATION: MRI BRAIN WO CON, [...] Electronically authenticated by: RENATA GAYTAN Date: 2022-05-29 13:51[facility] CAROTID ART BILon 39-70-8291MI CAROTID ART BILEXAMINATION: US CAROTID ART JONY [...] Electronically authenticated by: RENATA GAYTAN Date: 2022-05-29 12:55[facility] HospitalCovid-19 PCR (CVDTB)on 12-13-3415LPHZ-CoV-2 (COVID-19) RNA ARMIN+probe Ql (Unsp spec)Not detectedNormalNOT DETECTEDThe [facility] Comment on above:Result Comment: This test is not yet approved or cleared by the [place] FDA. When there are no FDA-approved or cleared tests available, and other criteria are met, FDA can make tests available under an emergency access mechanism called an Emergency Use Authorization (EUA). The EUA for this test is supported by the Risk Prevention Engineer of Health and Human Service's (HHS's) declaration [...] consistent with SARS-CoV-2.Performed By: #### CVDTBH #### [facility] [address] [place] [address] Dr. Samuel KangPerry County Memorial Hospitalulatory Clinical Summaryon 72-24-9941Sljuhmkziv Clinical Summary{96-y9-wv-36-23-37-29-of-6z-of-63-06-b5-9e-fb-7c}CD:[id number] Citizens HospitalPatient Educationon 76-25-8479Wucpdvi EducationNutrition Calorie Counting for Weight Loss Calories [...] serving sizes. You could (more content not included)...[facility] HospitalUrology Office/Clinic Noteon 20-21-9663Bhwwtlz Office/Clinic NoteChief Complaint Pt is here for [...] MD, Jude Farias, URO In 6 months [id number] Additional Instructions: Patient Education Calorie Counting for [...] Recorded SARS-CoV-2 (COVID-19) mR (more content not included)...[facility] HospitalComment on above:Result Comment: Electronically Signed By: Thuan ARMANDO MD\.br\Date and Time Signed: 09/11/20 16:11 EDT\.br\Electronically Co- Signed By: Anastasia Cabral\.br\Date and Time Co-Signed: 09/11/20 16:08 EDT Ambulatory Clinical Summaryon 12-12-7512Oaasnnleid Clinical Summary {32-c5-r2-r2-84-wk-65-52-rv-z6-ww-23-aa-15-31-5f}CD:011995DfrvkzCnzzgoBarberton Citizens HospitalPatient Educationon 84-31-4819Mscdxga EducationUrology Urinary Incontinence Urinary incontinence refers to [...] stimulation). ? For women, using a medical management specialist to prevent urine leaks. This is a [...] after experiencing incontinence. General instructions ? Take hwus-nph-zzoiqfn and prescription medicines only as (more content not included)...[facility] HospitalUrology Office/Clinic Noteon 09-52-4490Xltdofr Office/Clinic NoteChief Complaint 2 week PO This [...] Jude Farias, URO [address] [place] [address]- Additional Instructions: 1mos. f/u Patient Education Urinary [...] with dilation of urethral (more content not included)...[facility] HospitalComment on above: Result Comment: Electronically Signed By: Tushar Nunez MD, Jude Farias\.br\Date and Time Signed: 08/08/2110:28 EDT\.br\Electronically Co-Signed By: Kisha Stevens MA\.br\Date and Time Co-Signed: 08/08/20 11:15 EDTOperative Reporton 90-42-8357Bugkbjkvf [id number]#1.00CD:[address] [place], [place] [address]Pathology Noteon 98-52-8062Mjzaqietg Note [id number]#1.00CD:[address] [place], [place] [address]Comment on above:Result Comment: Electronically Signed By: Jude Finley Jr., MD\.br\Date and Time Signed: 08/07/2110:22 EDTECG 12-Leadon 10-43-6760EVT 12-[id number]#1.00CD:[address] [place] [address] Note-Physicianon 65-50-5916XT Note-Physician [id number]#1.00CD:[address] [place], [place] [address]Lab Reportson 92-98-0019Qfs Reports [id number]#1.00CD:[address] [place], [place] [address]Lab X[id number]#1.00CD:[address] [place], [place] [address]RAD - MISCon 91-10-5460LUC - MISC [id number]#1.00CD:[address] [place], [place] [address]Insurance Correspondence Officeon 20-76-2098Ahopunkvt Correspondence [id number]#1.00CD:[address] [place], [place] [address]Operative Reporton 44-56-6791Vstozrgii Report [id number]#1.00CD:127[facility]Bar[facility] HospitalPhysician Orderon 22-57-2948Fnpqstfhw Order [id number]#1.00CD:127[facility] HospitalPre-Authorization for Medical Treatmenton 49-57-3270Syj-Authorization for Medical [id number]#1.00CD:127JenniferMercy Health St. Elizabeth Youngstown HospitalAmbulatory Clinical Summaryon 51-70-9930Qjbbqztbni Clinical Summary{08-fw-64-cw-67-3z-59-94-27-59-86-88-45-4e-56-ed}CD:[id number] Valley HospitalPatient Educationon 30-81-0619Jafhuhg Education Obstetrics and Gynecology Urethral Vaginal Sling [...] including vitamins, herbs, eye drops, creams, and jsrn-jvy-nyyfoyd medicines. ? Any problems you or family [...] diabetes medicines or blood thinners. ? Taking wwgr-jcw-yvhtzwn medicines, vitamins, herbs, and supplements. ? Taking [...] not intended to r (more content not included)...[facility] HospitalUrology Office/Clinic Noteon 16-17-4934Yqsszcr Office/Clinic NoteChief Complaint 3 week follow up [...] urine and/or bladder capacity by US- non-imaging 19752 Urnls Dip Stick Auto w/o Microscopy POC 82007 Urology Procedure Order 2. Cystocele with prolapse [...] [facility] [address], [place] [address]- Additional Instructions: Patient Education Urethral Vaginal Sling [...] History of UTI Hypertensio (more content not included)...[facility] Comment on above:Result Comment: Electronically Signed By: Jude Finley Jr., MD\.br\Date and Time Signed: 07/11/2113:49 EDT\.br\Electronically Co-Signed By: Libby Chambers MA\.br\Date and Time Co-Signed: 07/11/20 14:30 EDTAmbulatory Clinical Summaryon 91-79-2357Gidmbnyufh Clinical Summary {l8-74-80-81-w1-6c-1s-94-87-6c-24-6m-3f-aa-b3-7a}CD:076567MhodppTalojk [facility] Educationon 27-35-1221Zubrxwj EducationUrology Urethral Dilation Urethral dilation is a [...] including vitamins, herbs, eye drops, creams, and sica-xut-mzmnqmc medicines. ? Any problems you or family [...] tells you to take them. ? Taking lyrr-dhs-tfbptdg medicines, vitamins, herbs, and supplements. General instructions [...] these instructions at home: Medicines ? Take kpeo-uum-jhjkrzf and prescription medicines only as told by [...] to prevent or treat constipation: ? Take guem-ldg-oesofdk or prescription medicines. ? Eat foods that [...] urinate. ? You pa (more content not included)...[facility] HospitalUrology Office/Clinic Noteon 41-32-4802Erosscu Office/Clinic NoteChief Complaint Patient is here for [...] Urnls Dip Stick Auto w/o Microscopy POC 97936 I have reviewed the previous health record information and history for this patient from Dr. Finley Follow-up With When Contact Information Tushar Nunez MD, Jude Farias, URO [facility] [address], [place] [address]- Additional Instructions: 2 weeks Patient Education Urethral Dilation Maria Del Carmen Nicolas personally scribed for Dr. Finely on 06/20/2020 14:23:50. . Documentation recorded by the scribeMaria Del Carmen, accurately reflects the services(s) I performedand decisions made by me. Authenticated by Dr. Finley on 06/20/2020 14:34:50. Problem List/Past Medical History Ongoing Arthritis Asthma Bladder infection Bladder outlet obstruction COPD mixed type (more content not included)...[facility] Comment on above:Result Comment: Electronically Signed By: Tushar Nunez MD, Jude Farias\.br\Date and Time Signed: 06/20/2113:36 EDT\.br\Electronically Co-Signed By: Maria Del Carmen Hernandez MA\.br\Date and Time Co-Signed: 06/20/2113:24 EDTCoding Summary. on 83-58-7502Zsumbb Summary. CD:[id number]:[id number]+PGhlYWQ+WL0XALMhR45mvWBqvQ1XX9lHXQ0CVWEDGDTVOX7MCH9ej QD3IAtbQ5MflgVo [file] bGxh (more content not included)...NormalFisher [facility] Hospitalsent for Procedure/Surgeryon 00-81-2272Lzmehfl for Procedure/Surgery [id number]#1.00CD:127NormalOhio Valley HospitalConsent for Treatmenton 36-51-1763Igpdjhi for Treatment [id number]#1.00CD:127NoBarberton Citizens HospitalDischarge Instructionson 53-55-9439Cpquevrwx Instructions [id number]#1.00CD:127JenniferBarberton Citizens HospitalIntraOperative Documentson 36-38-8379DivpnQdhiblodr Documents [id number]#1.00CD:127NoBarberton Citizens HospitalMain OR Intraoperative Recordon 63-36-2461Aiyu OR Intraoperative Record IntraOp Document Type FTURO Summary Primary Physician: Jude Finley Jr., MD Finalized Date/Time: 06/15/20 15:02:47 Pt. Name: SHAYY MAYNARD Srinath /Sex: 1945 Female Med Rec #: [id number] Physician: Jude Finley Jr., MD Financial #: [id number] Pt. Type: O Room/Bed: / Admit/Disch: 06/15/20 13:40:05 - Institution: Case Times FTURO Entry 1 Patient Times In Room 06/15/20 14:48:00 Out Room 06/15/20 15:02:00 Procedure Times Start 06/15/20 14:50:00 Stop 06/15/20 14:52:00 Anesthesia Times Last Modified By: Vishal Manuel RN 06/15/20 15:02:42 Case Attendance FTURO Entry 1 Entry 2 Entry 3 Case Attendee Tushar Nunez MD, Jude Herrera SPIRAL WINDING MACHINE HELPER, Pauly Manuel RN, Vishal Douglass Role Performed Surgeon - Primary Scrub - Primary Managed Care Nurse - Primary Time In 06/15/20 14:48:00 06/15/20 14:48:00 06/15/20 14:48:00 Time Out 06/15/20 15:02:00 06/15/20 15:02:00 06/15/20 15:02:00 Procedure CYSTOSCOPY LOCAL(.) CYSTOSCOPY LOCAL(.) CYSTOSCOPY LOCAL(.) Comments Last Modified By: aMr MELGAR, Vishal Manuel RN, Vishal Naqvi RN [...] Nunez MD, Jude Farias, Verified (If Participants [facility]-KiskiPauly, Applicable) Vishal Manuel RN Time Out Complete [...] Signatures Signed By: Vishal Manuel RN 06/15/20 15:02[facility] HospitalMain OR Preoperative Recordon 49-54-2720Nzcq OR Preoperative RecordHolding Area Document Type FTURO Summary Primary Physician: Jude Finley Jr., MD Finalized Date/Time: 06/15/20 14:34:27 Pt. Name: ALEXSHAYY/Sex: 1945 Female Med Rec #: [id number] Physician: Jude Finley Jr., MD Financial #: [id number] Pt. Type: O Room/Bed: / Admit/Disch: 06/15/20 [...] Manuel RN Document Signatures Signed By: Franciscopavan BILINGUAL TRAINERShabana 06/15/20 14:25 Vishal Manuel RN 06/15/20 14:34NormalOhio Valley HospitalOperative Reporton 03-91-5404Jvctjrwlk ReportPatient: SHAYY MAYNARD Age: 75 years Sex: [...] urine. The Urethra was dilated to: 24 Tajik w/ sounds. Devices Implanted: None. Removal: Cystoscope is removed, The patient tolerated it well. Postoperative Information Discharge: Patient is discharged home with antibiotic coverage, Follow up arranged, Office visit will be planned to make arrangements for repair of cystocele..[facility] HospitalComment on above:Result Comment: Electronically Signed By: Jude Finley Jr., MD\.br\Date and Time Signed: 06/15/2113:59 EDTPre-Authorization for Medical Treatmenton 40-53-3288Ljg- Authorization for Medical Treatment [id number]#1.00CD:127NoBarberton Citizens HospitalAmbulatory Clinical Summaryon 73-84-0217Fcklmekufh Clinical Summary {9a-3w-zg-58-x9-67-74-75-08-85-f0-9n-f2-02-f9-5b}CD:507469CmfirkRtvwkwBarberton Citizens HospitalPatient Educationon 75-55-8493Qllcciy EducationUrology Urinary Incontinence Urinary incontinence refers to [...] stimulation). ? For women, using a medical management specialist to prevent urine leaks. This is a [...] after experiencing incontinence. General instructions ? Take lhuo-qru-fxeqkgj and prescription medicines only as (more content not included)...NormalOhio Valley HospitalUrology Office/Clinic Noteon 09-91-8137Vedfcsg Office/Clinic NoteChief Complaint Patient is here for a follow up to [facility] for ball like object HPI Staff Shayy is a 75 y.o. female here for follow up to [place] [facility] for bladder hanging out, patient insists on planning surgery. Previous Dx: bladder infection, bladder outlet obstruction, dysuria, flank pain, gross hematuria, history of UTI, retention of urine, urethral stricture. 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 Patient was seen at [place] [facility] on 06/07/20 for a ball like [...] When Contact Information Jude Finley Jr., MD [phone] Additional Instructions: Patient Education Urinary Incontinence IAnastasia, [...] Flank pain Gross hematuria (more content not included)...[facility] Comment on above:Result Comment: Electronically Signed By: Jude Finley Jr., MD\.br\Date and Time Signed: 06/12/2109:30 EDT\.br\Electronically Co-Signed By: Anastasia Cabral\.br\Date and Time Co-Signed: 06/12/20 10:24 EDTCoding Summary.on 66-46-3481Gkucny Summary.CODING DATE: 05/23/2020 FINAL [facility] STATUS: Home (Routine DC) PAYOR: Medicare APC [...] By: Ryann Villegas Date Saved: 05/23/2020 09:34 amNCleveland Clinic [place] GeneralConsenton [id number]#1.00CD:127[facility] HospitalConcarrington health center for Procedure/Surgeryon 93-40-9779Giwgdyo for Procedure/[id number]#1.00CD:127[facility] for Treatmenton 06-62-1776Xbuzhoi for [id number]#1.00CD:127[facility] for Treatment [id number]#1.00CD:127[facility] HospitalDischarge Instructionson 28-18-0464Nqverjejw Instructions [id number]#1.00CD:127[facility] HospitalIntraOperative Documentson 03-72-5572IswomWvlhrmbmo Documents [id number]#1.00CD:127[facility] HospitalMain OR Intraoperative Recordon 43-75-2345Pygi OR Intraoperative Record IntraOp Document Type FTURO Summary Primary Physician: Jude Finley Jr., MD Finalized Date/Time: 05/18/20 14:11:35 Pt. Name: ALEX MARIAMA Cordero/Sex: 1945 Female Med Rec #: [id number] Physician: Jude Finley Jr., MD Financial #: [id number] Pt. Type: O Room/Bed: / Admit/Disch: 05/18/20 [...] MD, Jude Glasgow RN, CNOR, Luz Cormier [facility] MEDICAL CENTERVishal Role Performed Surgeon - Primary Managed Care Nurse - Primary Scrub - Primary Time In [...] 14:02 RYLAND Glasgow RN, Lou Ann 05/18/20 14:11NoBarberton Citizens HospitalMain OR Preoperative Recordon 93-53-8299Jyrw OR Preoperative RecordHolding Area Document Type FTURO Summary Primary Physician: Jude Finley Jr., MD Finalized Date/Time: 05/18/20 13:59:17 Pt. Name: MARIAMA MAYNARD Srinath Cordero/Sex: 1945 Female Med Rec #: [id number] Physician: Jude Finley Jr., MD Financial #: [id number] Pt. Type: O Room/Bed: / Admit/Disch: 05/18/20 [...] 13:42 RYLAND Glasgow RN, Lou Ann 05/18/20 13:59NoBarberton Citizens HospitalOperative Reporton 63-22-5170Dlflhcltg ReportPatient: MARIAMA MAYNARD Age: 74 years Sex: [...] urine. The Urethra was dilated to: 28 Tajik w/ sounds. Devices Implanted: None. Removal: Cystoscope is removed, The patient tolerated it well. Postoperative Information Discharge: Patient is discharged home with antibiotic coverage, Follow up arranged.[facility] HospitalComment on above:Result Comment: Electronically Signed By: Tushar Nunez MD, Jude Farias\.br\Date and Time Signed: 05/18/2113:02 EDTAmbulatory Clinical Summaryon 29-58-9594Sqbkuzbrfz Clinical Summary{35-n6-2a-27-tt-58-8g-d5-u8-24-3o-62-65-93-fe-5a}CD:188612NvlqqrIqdptxBarberton Citizens HospitalPatient Educationon 18-31-5965Vwplxhy EducationUrinary Frequency The number of times a [...] urinary frequency. Itis (more content not included)...NormalFisher [facility] Medical CenterUrology Office/Clinic Noteon 07-39-7687Afkfvjm Office/Clinic NoteChief Complaint decreased voiding This patient [...] Will order Local anesthesia. ABX sent to [facility] in [place]. 2. Retention of urine (R33.9: Retention of [...] procedure, # 2 cap(s), Refills(s) 0, Pharmacy: [facility]/pharmacy #[id number], 163, cm, 05/11/20 8:31:00 EDT, Height/Length Dosing, 64.2, kg, 05/11/20 8:31:00 EDT, W... Measure Post Void residual urine and/or bladder capacity by US- non-imaging 07602 Urnls Dip Stick Auto w/o Microscopy POC 17498 I have reviewed the previous health record information and history for this pt. from Dr. Finley. Follow-up With When Contact Inf (more content not included)...[facility] HospitalComment on above:Result Comment: Electronically Signed By: Tushar Nunez MD, Jude Farias\.br\Date and Time Signed: 05/11/2109:45 EDT\.br\Electronically Co- Signed By: Kisha Stevens MA\.br\Date and Time Co-Signed: 05/11/20 08:53 EDT Ambulatory Clinical Summaryon 93-26-9057Vfcwzanjeq Clinical Summary {0d-y3-10-44-4w-uo-56-6z-rn-j7-a2-k0-e5-33-f1-71}CD:031837HxzvfrLvsqykBarberton Citizens HospitalPatient Educationon 15-39-0153Vfcjmsk EducationObstetrics and Gynecology Acute Urinary Retention, Female [...] lead to aurinary tract infection. Only take kflt-hqj-wjzuelk or prescription medicines for pain, discomfort, or fever as directed by your caregiver. SEEK IMMEDIATE MEDICAL CARE IF: You develop chills, fever, or show signs of generalized illness that occurs prior to seeing your caregiver. Document Released: 02/09/2007 Document Revised: 05/04/2012 Document Reviewed: 01/12/2010 ExitCare? Patient Information ?2013 [employer].[facility] HospitalUrology Office/Clinic Noteon 38-43-4850Iyvqrzt Office/Clinic NoteChief Complaint f/u to cysto UD [...] Urnls Dip Stick Auto w/o Microscopy POC 07467 3. Dysuria (R30.0: Dysuria) Mild burning w/ urination. I have reviewed the previous health record information and history for this pt. from Dr. Finley. Follow-up With When Contact Information Jude Finley Jr., MD [address] [place] [id number]- Additional Instructions: 1mos. w/ pVR Patient Education [...] furosemide 20 mg T (more content not included)...[facility] HospitalComment on above:Result Comment: Electronically Signed By: Jude Finley Jr., MD\.br\Date and Time Signed: 01/04/2012:26 EST\.br\Electronically Co- Signed By: Kisha Stevens MA\.br\Date and Time Co-Signed: 01/04/20 12:01 EST Operative Reporton 72-34-5860Wiispawfq Report [id number]#1.00CD:127NoBarberton Citizens HospitalCult,Bloodon 96-92-5374Uokq,BloodSpecimen Description .BLOOD Special Requests 3ML LT A.C. Culture NO GROWTH 6 DAYS Report Status FINAL 10/18/2019NoSalem Regional Medical CenterComment on above:Performed By: #### CDP, CP, LIP, TROPI, LIPRF, GLYHGB #### [employer] [address] [place] [address] Switch Foreman: Carlo Mcmanus,BloodSpecimen Description .BLOOD Special Requests back lt arm 3ml Culture NO GROWTH 6 DAYS Report Status FINAL 10/18/2019NoSalem Regional Medical CenterComment on above:Performed By: #### CDP, CP, LIP, TROPI, LIPRF, GLYHGB #### [employer] [address] [place] [address] [phone] Switch Foreman: Carlo Mcmanus,Urineon 99-75-4223Gjkl,UrineSpecimen Description .CLEAN CATCH URINE Special Requests NOT REPORTED Culture STAPHYLOCOCCUS SPECIES, COAGULASE NEGATIVE >314885 CFU/ML Report Status FINAL 10/17/2019 SUSCEPTIBILITY Organism [...] NOT REPORTED Trimethoprim/Sulfa 20 SUSCEPTIBLE Vancomycin 1 SUSCEPTIBLENoSalem Regional Medical CenterComment on above: Performed By: #### KRIS, CP, LIP, TROPI, LIPRF, GLYHGB #### [employer] [address] [place] [address] [phone] Switch Foreman: Josh Mcmanus Metab w/rfx MGon 10-16-2019(cont.)Normal [place] Children'S HospitalComment on above:Result Comment: Average GFR for 70 or more years old: 75 mL/min/1.73sq m Chronic Kidney Disease: <60 mL/min/1.73sq m Kidney failure: <15 mL/min/1.73sq m eGFR calculated using average adult body mass. Additional eGFR calculator available at: http://www.ParkAround.com.com/multiple_crcl_2012.htmPerformed By: #### CDP, CP, LIP, TROPI, LIPRF, GLYHGB #### [facility] [employer] [address] [place] [address] Switch Foreman: Brandon Anaya MDAnion gap [Moles/Vol]13 mmol/LNormal9-17[place] Children'S HospitalComment on above:Performed By: #### CDP, CP, LIP, TROPI, LIPRF, GLYHGB #### [facility] [employer] [address] [place] [phone] Switch Foreman: Brandon Anaya MDCalcium [Mass/Vol]8.6 mg/dLNormal8.6-10.4[place] Children'S HospitalComment on above:Performed By: #### CDP, CP, LIP, TROPI, LIPRF, GLYHGB #### [facility] [employer] [address] [place] [address] Switch Foreman: Brandon Anaya MDChloride [Moles/Vol]97 mmol/QDzu99-950HwdgrAk[place] Children'S HospitalComment on above:Performed By: #### CDP, CP, LIP, TROPI, LIPRF, GLYHGB #### [facility] [employer] [address] [place] [phone] Switch Foreman: Brandon Anaya MDCO2 [Moles/Vol]25 mmol/EGklgyt63-80NzrwnAk[place] Children'S HospitalComment on above:Performed By: #### CDP, CP, LIP, TROPI, LIPRF, GLYHGB #### [facility] [employer] [address] [place] [address] Switch Foreman: Brandon Anaya MDCreatinine [Mass/Vol]0.42 mg/dLLow0.50-0.90[place] Children'S HospitalComment on above:Performed By: #### CDP, CP, LIP, TROPI, LIPRF, GLYHGB #### [facility] [employer] [address] [place] [address] Switch Foreman: Brandon Anaya MDGFR, Amer>60Normal>60MerMission Bernal campusComment on above:Performed By: #### CDP, CP, LIP, TROPI, LIPRF, GLYHGB #### [address] [address] Switch Foreman: Brandon Anaya MDGFR,non Amer>60Normal>60MerMission Bernal campusComment on above:Performed By: #### CDP, CP, LIP, TROPI, LIPRF, GLYHGB #### [address] [address] Switch Foreman: Brandon Anaya MDGlucose [Mass/Vol]87 mg/aQQhorms94-93MhfgjJohn George Psychiatric PavilionComment on above:Performed By: #### CDP, CP, LIP, TROPI, LIPRF, GLYHGB #### [address] [address] Switch Foreman: BLADIMIR Mcmanusotassium [Moles/Vol]3.7 mmol/LNormal3.7-5.3 [place] Children'S HospitalComment on above:Performed By: #### CDP, CP, LIP, TROPI, LIPRF, GLYHGB #### [address] [address] Switch Foreman: FABIANA Mcmanusodium [Moles/Vol]135 mmol/PRwxulw896-021VmxgaAk[place] Children'S HospitalComment on above:Performed By: #### CDP, CP, LIP, TROPI, LIPRF, GLYHGB #### [facility] [employer] [address] [place] [address] Switch Foreman: Brandon Anaya MDUrea nitrogen [Mass/Vol]14 mg/dLNormal8-23[place] Children'S HospitalComment on above:Performed By: #### CDP, CP, LIP, TROPI, LIPRF, GLYHGB #### [facility] [address] [place], [place] [phone] Switch Foreman: RADHA Mcmanus/CRE RatioNOT REPORTEDNormal11-13[place] Children'S HospitalComment on above:Performed By: #### CDP, CP, LIP, TROPI, LIPRF, GLYHGB #### [facility] [address] [place], [place] [phone] Switch Foreman: FABIANA Mcmanustaging:NOT REPORTEDNormalAk[place] Children'S HospitalComment on above:Performed By: #### CDP, CP, LIP, TROPI, LIPRF, GLYHGB #### [facility] [address] [place], [place] [phone] Switch Foreman: Josh Mcmanus Metabolic Panel w/ Reflex to MGon 96-92-5809Dgrxh gap [Moles/Vol]13 mmol/L9 - 17 mmol/LMMarietta Memorial Hospital, KYBun/Cre RatioNOT REPORTEDTrumbull Memorial Hospital, KYCalcium [Mass/Vol]8.6 mg/dL8.6 - 10.4 mg/dLTrumbull Memorial Hospital, KYChloride [Moles/Vol]97 mmol/LLow98 - 107 mmol/[facility], KYCO2 [Moles/Vol]25 mmol/L20 - 31 mmol/LMMarietta Memorial Hospital, [place] Creatinine [Mass/Vol]0.42 mg/dLLow0.5 - 0.9 mg/dLTrumbull Memorial Hospital, KYGFR >60>60 mL/minTrumbull Memorial Hospital, KYGFR Non->60>60 mL/min [facility], KYGFR/1.73 sq M predicted among non-blacks MDRD (S/P/Bld) [Vol rate/Area][facility], KYComment on above:Average GFR for 70 or more years old: 75 mL/min/1.73sq m Chronic Kidney Disease: <60 mL/min/1.73sq m Kidney failure: <15 mL/min/1.73sq m eGFR calculated using average adult body mass. Additional eGFR calculator available at: http://www.TalentBin/multiple_crcl_2012.htm GFR/1.73 sq M predicted among non-blacks MDRD (S/P/Bld) [Vol rate/Area]NOT REPORTEDEast [facility]- [place], KYGlucose [Mass/Vol]87 mg/dL70 - 99 mg/dLEast [facility]- [place], KYInterpretation and review of laboratory resultsAbnormalEast [facility] City Hospital- [place], KYPotassium [Moles/Vol]3.7 mmol/L3.7 - 5.3 mmol/LMsuburban community hospital & [facility]- [place], KYSodium [Moles/Vol]135 mmol/L135 - 144 mmol/LMkindred hospital limay [facility]- [place], KYUrea nitrogen [Mass/Vol]14 mg/dL8 - 23 mg/dLHenry County Hospital [place], KYCBC auto differentialon 04-99-7477Spbauzldi (Bld) [#/Vol]0.04 10*3/uLEast [facility]- [place], KYBasophils/100 WBC (Bld)0 %0 - 2 %[facility], KYDifferential TypeNOT REPORTEDEast [facility]- [place], KYEosinophils (Bld) [#/Vol]0.10 10*3/uLEast [facility] Hospital- [place], [place] Eosinophils/100 WBC (Bld)1 %1 - 4 %[facility]- [place], KYErythrocyte distribution width (RBC) [Ratio]14.6 %High11.8 - 14.4 %[facility]- [place], KYHematocrit (Bld) [Volume fraction]40.2 %36.3 - 47.1 %[facility]- [place], KYHemoglobin (Bld) [Mass/Vol]12.6 g/dL11.9 - 15.1 g/dLEast [facility]- [place], KYImmature granulocytes (Bld) [#/Vol]0.08 10*3/uLEast [facility] Hospital- [place], KYImmature granulocytes (Bld) [#/Vol] 1 %Cjbn7GxydlEast [facility] Hospital- [place], KYInterpretation and review of laboratory results AbnormalEast [facility] Hospital- [place], KYLymphocytes (Bld) [#/Vol]3.05 10*3/[facility], TXLymphocytes/100 WBC (Bld)32 %24 - 43 %[place], KYMCH (RBC) [Entitic mass]29.0 pg25.2 - 33.5 pgChester, KYMCHC (RBC) [Mass/Vol]31.3 g/dL28.4 - 34.8 g/dLChe[place], KYMCV (RBC) [Entitic vol]92.4 fL82.6 - 102.9 fLChester, KYMonocytes (Bld) [#/Vol]0.76 10*3/[facility], TXMonocytes/100 WBC (Bld)8 %3 - 12 %[place], KYPlatelet mean volume (Bld) [Entitic vol]10.6 fL8.1 - 13.5 fLChester, KYPlatelets (Bld) [#/Vol]216 10*3/uLChe[place], KYPlatelets (Bld) [#/Vol]NOT REPORTED[place], KYRBC (Bld) [#/Vol]4.35 10*6/uL3.95 - 5.11 m/[facility], [place] RBC morphology finding Nom (Bld)ANISOCYTOSIS PRESENTChester, [place] Segmented neutrophils/100 WBC (Bld)58 %36 - 65 %[place], KYSegs Absolute5.61[place], KYWBC (Bld) [#/Vol]9.6 10*3/uLChe[place], [place] WBC (Bld) [#/Vol]0.0 10*3/uL0.0 per 100 WBCTrumbull Memorial Hospital, TXWBC MorphologyNOT REPORTEDChe[place], KYCB with Diffon 27-55-6943Qmj. Basophil0.04 k/uL Normal0.00-0.20[place] Children'S HospitalComment on above:Performed By: #### CDP, CP, LIP, TROPI, LIPRF, GLYHGB #### [employer] [address] [place] [address] Switch Foreman: MDAbs. MariettaImm.Granulocyte0.08 k/uLNormal0.00-0.30[place] Children'S HospitalComment on above:Performed By: #### CDP, CP, LIP, TROPI, LIPRF, GLYHGB #### [address] [address] Switch Foreman: MDAbs. MariettaNeutrophil (Seg)5.61 k/uLNormal1.50-8.10 [place] [facility]'S HospitalComment on above:Performed By: #### CDP, CP, LIP, TROPI, LIPRF, GLYHGB #### [address] [address] Switch Foreman: Brandon Anaya MDBasophils/100 WBC (Bld)0 %Normal0-2MJohn George Psychiatric PavilionComment on above:Performed By: #### CDP, CP, LIP, TROPI, LIPRF, GLYHGB #### [address] [address] Switch Foreman: Brandon Anaya MDEosinophils (Bld) [#/Vol]0.10 10*3/uLNormal 0.00-0.44[place] [facility]'S HospitalComment on above:Performed By: #### CDP, CP, LIP, TROPI, LIPRF, GLYHGB #### [address] [address] Switch Foreman: MAU Mcmanusosinophils/100 WBC (Bld)1 %Normal1-4[place] [facility]'S HospitalComment on above:Performed By: #### CDP, CP, LIP, TROPI, LIPRF, GLYHGB #### [address] [address] Switch Foreman: Brandon Anaya MDErythrocyte distribution width (RBC) [Ratio]14.6 %High11.8-14.4[place] [facility]'S HospitalComment on above:Performed By: #### CDP, CP, LIP, TROPI, LIPRF, GLYHGB #### [facility] [address] [place] [address] Switch Foreman: Brandon Anaya MDHematocrit (Bld) [Volume fraction]40.2 %Normal 36.3-47.1MJohn George Psychiatric PavilionComment on above:Performed By: #### CDP, CP, LIP, TROPI, LIPRF, GLYHGB #### [facility] [employer] [address] [place] [address] Switch Foreman: Brandon Anaya MDHemoglobin (Bld) [Mass/Vol]12.6 g/dLNormal 11.9-15.1MJohn George Psychiatric PavilionComment on above:Performed By: #### CDP, CP, LIP, TROPI, LIPRF, GLYHGB #### [facility] [employer] [address] [place] [address] Switch Foreman: Brandon Anaya MDImmature granulocytes (Bld) [#/Vol]1 %Ntqx1WdskcAkron Children'S HospitalComment on above:Performed By: #### CDP, CP, LIP, TROPI, LIPRF, GLYHGB #### [facility] [facility] [employer] [address] [place] [address] Switch Foreman: Brandon Anaya MDLymphocytes (Bld) [#/Vol]3.05 10*3/uLNormal 1.10-3.70[place] Children'S HospitalComment on above:Performed By: #### CDP, CP, LIP, TROPI, LIPRF, GLYHGB #### [facility] [employer] [address] [place] [address] 6[address] Switch Foreman: Kortney Mcmanusmphocytes/100 WBC (Bld)32 %Pqykur51-84LtxfkAk[place] Children'S HospitalComment on above:Performed By: #### CDP, CP, LIP, TROPI, LIPRF, GLYHGB #### [facility] [employer] [address] [place] [address] 36393 Switch Foreman: LIZZY McmanusCH (RBC) [Entitic mass]29.0 hyYrenui76.2-33.5 [place] Children'S HospitalComment on above:Performed By: #### CDP, CP, LIP, TROPI, LIPRF, GLYHGB #### [facility] [employer] [address] [place] [address] 30257 Switch Foreman: LIZZY McmanusCHC (RBC) [Mass/Vol]31.3 g/fJGwqqhh00.4-34.8 [place] [facility]'S HospitalComment on above:Performed By: #### CDP, CP, LIP, TROPI, LIPRF, GLYHGB #### [facility] [employer] [address] [place] [address] 22103 Switch Foreman: LIZZY McmanusCV (RBC) [Entitic vol]92.4 uPLtydwe80.6-102.9 [place] [facility]'S HospitalComment on above:Performed By: #### CDP, CP, LIP, TROPI, LIPRF, GLYHGB #### [facility] [employer] [address] [place] [address] 64091 Switch Foreman: Brandon Anaya MDMonocytes (Bld) [#/Vol]0.76 10*3/uLNormal 0.10-1.20[place] Children'S HospitalComment on above:Performed By: #### CDP, CP, LIP, TROPI, LIPRF, GLYHGB #### [facility] [employer] [address] [place] [address] 69528 Switch Foreman: LIZZY Mcmanusonocytes/100 WBC (Bld)8 %Normal3-12[place] Children'S HospitalComment on above:Performed By: #### CDP, CP, LIP, TROPI, LIPRF, GLYHGB #### [facility] [employer] [address] [place] [address] 33758 Switch Foreman: Brandon Anaya MDNeutrophil (Seg)58 %Vyibhp91-20EcipvAk[place] Children'S HospitalComment on above:Performed By: #### CDP, CP, LIP, TROPI, LIPRF, GLYHGB #### [facility] [address] [place] [address] Switch Foreman: Brandon Anaya MDNRBC Automated0.0 per 100 WBCNormal0.0[place] Children'S HospitalComment on above:Performed By: #### CDP, CP, LIP, TROPI, LIPRF, GLYHGB #### [facility] [employer] [address] [place] [address] 96217 Switch Foreman: Nadeem Mcmanus mean volume (Bld) [Entitic vol]10.6 fL Normal8.1-13.5[place] Children'S HospitalComment on above:Performed By: #### CDP, CP, LIP, TROPI, LIPRF, GLYHGB #### [facility] [employer] [address] [place] [address] 91314 Switch Foreman: Geremias Mcmanustemariluz (Bld) [#/Vol]216 10*3/mGTirhth073-311 [place] [facility]'S HospitalComment on above:Performed By: #### CDP, CP, LIP, TROPI, LIPRF, GLYHGB #### [facility] [employer] [address] [place] [address] 93891 Switch Foreman: DREW McmanusBC (Bld) [#/Vol]4.35 10*6/uLNormal3.95-5.11 [place] [facility]'S HospitalComment on above:Performed By: #### CDP, CP, LIP, TROPI, LIPRF, GLYHGB #### [facility] [employer] [address] [place] [address] 45655 Switch Foreman: RICHA Mcmanus morphology finding Nom (Bld)ANISOCYTOSIS PRESENTNormalAk[place] Children'S HospitalComment on above:Performed By: #### CDP, CP, LIP, TROPI, LIPRF, GLYHGB #### [facility] [place] [address] Switch Foreman: LUCIAN Mcmanus ([facility]) [#/Vol]9.6 10*3/uLNormal3.5-11.3[facility] Specialty HospitalComment on above:Performed By: #### CDP, CP, LIP, TROPI, LIPRF, GLYHGB #### [facility] [employer] [address] [place] [address] 26722 Switch Foreman: Gustabo Mcmanus PerformedNOT REPORTEDOhioHealth Arthur G.H. Bing, MD, Cancer CenterComment on above:Performed By: #### CDP, CP, LIP, TROPI, LIPRF, GLYHGB #### [employer] [address] [place] [address] 21606 Switch Foreman: Bon Mcmanus ([facility]) [#/Vol]NOT REPORTEDNormalAk[place] Children'S HospitalComment on above:Performed By: #### CDP, CP, LIP, TROPI, LIPRF, GLYHGB #### [facility] [employer] [address] [place] [address] 78871 Switch Foreman: LUCIAN Mcmanus MorphologyNOT REPORTEDOhioHealth Arthur G.H. Bing, MD, Cancer CenterComment on above:Performed By: #### CDP, CP, LIP, TROPI, LIPRF, GLYHGB #### [facility] [employer] [address] [place] [address] 27942 Switch Foreman: WENDY Mcmanus LUMBAR SPINE W WO CONTRASTon [id number] LUMBAR SPINE W WO CONTRASTEXAMINATION: MRI OF [...] by: Ryan Lindsay MD 10/15/19 Final resultNormalMercy [facility] Glucose Fingerstickon [id number] [Mass/Vol]98 mg/dL65 - 105 mg/dLMercy Health- [place], KYGlucose [Mass/Vol]107 mg/fGBfdb44 - 105 mg/dLMercy Health- [place], KYInterpretation and [...] UA NOT REPORTED0 /HPFMercy Health- [place], KYSpecific [place], UA1.006[facility]- [place], KYTrichomonas, UANOT REPORTEDNoneMercy Health- [place], KYTurbidity UACLOUDYAbnormal CLEARMercy Health- [place], KYUrine HgbNegativeNEGATIVEMercy Health- [place], [place] Urobilinogen, UrineNormalNormalMercy Health- [place], KYWBC, UA0 TO 2[facility]- [place], KYYeast, UANOT REPORTEDNoneMercy Health- [place], [place]-[facility]- [place], [place] Urinalysis w/ Microon 10-16-2019-----NormalMercy Health [facility] Hospitalcy [facility] Comment on above:Performed By: #### CDP, CP, LIP, TROPI, LIPRF, GLYHGB #### [address] [address] Switch Foreman: Brandon Anaya MDAcetoacetic Acid,UrSMALLAbnormalNEGAkron Children'S HospitalComment on above:Performed By: #### CDP, CP, LIP, TROPI, LIPRF, GLYHGB #### [address] [address] Switch Foreman: Rita Mcmanus LM.HPF (Urine sed) [#/Area]MODERATE AbnormalMartins Ferry HospitalComment on above:Performed By: #### CDP, CP, LIP, TROPI, LIPRF, GLYHGB #### [address] [address] Switch Foreman: Brandon Anaya MDBilirubin, SemiQt,UrNegativeNormalNEGAk[place] Children'S HospitalComment on above:Performed By: #### CDP, CP, LIP, TROPI, LIPRF, GLYHGB #### [address] [address] Switch Foreman: Maria Elena Mcmanus LM.LPF (Urine sed) [#/Area]0 TO 2 HYALINE Normal0-8[place] Children'S HospitalComment on above:Result Comment: Reference range defined for non-centrifuged specimen.Performed By: #### CDP, CP, LIP, TROPI, LIPRF, GLYHGB #### [address] [address] Switch Foreman: NEHAL Mcmanusolor (U)YELLOWNormalYELMerMission Bernal campusComment on above:Performed By: #### CDP, CP, LIP, TROPI, LIPRF, GLYHGB #### [facility] [employer] [address] [place] [address] 92554 Switch Foreman: Brandon Anaya MDEpithelial cells LM.HPF (Urine sed) [#/Area]0 TO 4Yoluiy8-8XfxuaAk[place] Children'S HospitalComment on above:Performed By: #### CDP, CP, LIP, TROPI, LIPRF, GLYHGB #### [place] [address] Switch Foreman: Brandon Anaya MDGlucose Ql (U)NegativeNormalNEGAk[place] Children'S HospitalComment on above:Performed By: #### CDP, CP, LIP, TROPI, LIPRF, GLYHGB #### [place] [address] Switch Foreman: Brandon Anaya MDHemoglobin, UrNegativeHaysNEGAkron Children'S HospitalComment on above:Performed By: #### CDP, CP, LIP, TROPI, LIPRF, GLYHGB #### [place] [address] Switch Foreman: Brandon Anaya MDLeukocyte esterase Test strip Ql (U)Negative NormalNEGAkron Children'S HospitalComment on above:Performed By: #### CDP, CP, LIP, TROPI, LIPRF, GLYHGB #### [facility] [employer] [address] [place] [address] 76368 Switch Foreman: Brandon Anaya MDNitrite,UrNegativeNormalNEGAk[place] Children'S HospitalComment on above:Performed By: #### CDP, CP, LIP, TROPI, LIPRF, GLYHGB #### [facility] [employer] [address] [place] [address] 33798 Switch Foreman: Brandon Anaya [facility] (U)8.0 [pH]Normal5.0-8.0[place] Children'S HospitalComment on above:Performed By: #### CDP, CP, LIP, TROPI, LIPRF, GLYHGB #### [facility] [address] [place] [address] 20210 Switch Foreman: BLADIMIR Mcmanusrotein Ql (U)NegativeNormalNEGAk[place] Children'S HospitalComment on above:Performed By: #### CDP, CP, LIP, TROPI, LIPRF, GLYHGB #### [facility] [address] [place] [address] 23286 Switch Foreman: DREW McmanusBC (U) [#/Vol]2 TO 5Jeralw4-6YpxgzAk[place] Children'S HospitalComment on above:Result Comment: Reference range defined for non- centrifuged specimen.Performed By: #### CDP, CP, LIP, TROPI, LIPRF, GLYHGB #### [facility] [address] [place] [address] 47196 Switch Foreman: FABIANA Mcmanuspecific gravity (U) [Rel density]1.006Normal 1.005-1.030[place] Children'S HospitalComment on above:Performed By: #### CDP, CP, LIP, TROPI, LIPRF, GLYHGB #### [facility] [address] [place] [address] 94170 Switch Foreman: GODWIN McmanusurbidityCLOUDYAbnoalCLEARAk[place] Children'S HospitalComment on above:Performed By: #### CDP, CP, LIP, TROPI, LIPRF, GLYHGB #### [facility] [address] [place] [address] 75926 Switch Foreman: Jackie Mcmanus,UrNormalNormalAshtabula General HospitalComment on above:Performed By: #### CDP, CP, LIP, TROPI, LIPRF, GLYHGB #### [facility] [address] [place] [address] 66458 Switch Foreman: TAMMY McmanusBC (U) [#/Vol]0 TO 9Linxij7-0Rjnqj Shc Specialty HospitalComment on above:Performed By: #### CDP, CP, LIP, TROPI, LIPRF, GLYHGB #### [facility] [address] [place] [address] 68482 Switch Foreman: Iwona Mcmanus sediment LM Ql (Urine sed)NOT REPORTED NormalNONEMercy Shc Specialty HospitalComment on above:Performed By: #### CDP, CP, LIP, TROPI, LIPRF, GLYHGB #### [facility] [address] [place] [address] 66211 Switch Foreman: Andrew Mcmanus LM Nom (Urine sed)NOT REPORTEDNormal NONEMerMission Bernal campusComment on above:Performed By: #### CDP, CP, LIP, TROPI, LIPRF, GLYHGB #### [facility] [address] [place] [address] 29009 Switch Foreman: Brandon Anaya MDEpithelial, RenalNOT KYLBEELJHdibzl9MbaqpAk[place] Children'S HospitalComment on above:Performed By: #### CDP, CP, LIP, TROPI, LIPRF, GLYHGB #### [facility] [address] [place] [address] 30232 Switch Foreman: LIZZY Mcmanusucus StrandsNOT REPORTEDNormalNONEMercRonald Reagan UCLA Medical CenterComment on above:Performed By: #### CDP, CP, LIP, TROPI, LIPRF, GLYHGB #### [facility] [address] [place] [address] 18441 Switch Foreman: Montana Mcmanus ObservationsNOT REPORTEDNormalNREQAk[place] Children'S HospitalComment on above:Performed By: #### CDP, CP, LIP, TROPI, LIPRF, GLYHGB #### [facility] [address] [place] [address] 11503 Switch Foreman: Marissa McmanusonasNOT REPORTEDNormalNONEMercRonald Reagan UCLA Medical CenterComment on above:Performed By: #### CDP, CP, LIP, TROPI, LIPRF, GLYHGB #### [employer] [facility] [place], [place] [phone] Switch Foreman: Donna Mcmanus LM Ql (Urine sed)NOT REPORTEDNormalNONE [place] Children'S HospitalComment on above:Performed By: #### CDP, CP, LIP, TROPI, LIPRF, GLYHGB #### [facility] [address] [place] [address] 945[address] Switch Foreman: Josh Mcmanus Metab w/rfx MGon 10-15-2019(cont.)Normal [place] Children'S HospitalComment on above:Result Comment: Average GFR for 70 or more years old: 75 mL/min/1.73sq m Chronic Kidney Disease: <60 mL/min/1.73sq m Kidney failure: <15 mL/min/1.73sq m eGFR calculated using average adult body mass. Additional eGFR calculator available at: http://www.ParkAround.com.Phigital/multiple_crcl_2012.htmPerformed By: #### CDP, CP, LIP, TROPI, LIPRF, GLYHGB #### [employer] [address] [place] [address] 31885 Switch Foreman: Brandon Anaya MDAniana gap [Moles/Vol]14 mmol/LNormal9-17[place] [facility]'S HospitalComment on above:Performed By: #### CDP, CP, LIP, TROPI, LIPRF, GLYHGB #### [employer] [address] [place] [address] 00044 Switch Foreman: Brandon Anaya MDCalcium [Mass/Vol]8.8 mg/dLNormal8.6-10.4[place] [facility]'S HospitalComment on above:Performed By: #### CDP, CP, LIP, TROPI, LIPRF, GLYHGB #### [address] [address] Switch Foreman: NEHAL Mcmanushloride [Moles/Vol]94 mmol/MKyq92-029XgagmAk[place] Children'S HospitalComment on above:Performed By: #### CDP, CP, LIP, TROPI, LIPRF, GLYHGB #### [address] [address] Switch Foreman: Brandon Anaya MDCO2 [Moles/Vol]23 mmol/AUwqarr51-57NiqfrAk[place] Children'S HospitalComment on above:Performed By: #### CDP, CP, LIP, TROPI, LIPRF, GLYHGB #### [address] [address] Switch Foreman: NEHAL Mcmanusreatinine [Mass/Vol]0.36 mg/dLLow0.50-0.90[place] [facility]'S HospitalComment on above:Performed By: #### CDP, CP, LIP, TROPI, LIPRF, GLYHGB #### [address] [address] Switch Foreman: Brandon Anaya MDGFR, Amer>60Normal>60[place] [facility]'S HospitalComment on above:Performed By: #### CDP, CP, LIP, TROPI, LIPRF, GLYHGB #### [address] [address] Switch Foreman: Brandon Anaya MDGFR,non Amer>60Normal>60[place] [facility]'S HospitalComment on above:Performed By: #### CDP, CP, LIP, TROPI, LIPRF, GLYHGB #### [facility] [employer] [address] [place] [address] 53897 Switch Foreman: Brandon Anaya MDGlucose [Mass/Vol]89 mg/fWDiyseq90-83CvqatJohn George Psychiatric PavilionComment on above:Performed By: #### CDP, CP, LIP, TROPI, LIPRF, GLYHGB #### [facility] [address] [place] [address] 17618 Switch Foreman: BLADIMIR Mcmanusotassium [Moles/Vol]3.7 mmol/LNormal3.7-5.3 [place] [facility]'S HospitalComment on above:Performed By: #### CDP, CP, LIP, TROPI, LIPRF, GLYHGB #### [facility] [address] [place] [address] 83962 Switch Foreman: FABIANA Mcmanusodium [Moles/Vol]131 mmol/TMli586-161WnwqeAk[place] Children'S HospitalComment on above:Performed By: #### CDP, CP, LIP, TROPI, LIPRF, GLYHGB #### [facility] [employer] [address] [place] [address] 9[address]65 Switch Foreman: Rebecca Mcmanus nitrogen [Mass/Vol]16 mg/dLNormal8-23[place] [facility]'S HospitalComment on above:Performed By: #### CDP, CP, LIP, TROPI, LIPRF, GLYHGB #### [facility] [address] [place] [address] 03716 Switch Foreman: RADHA Mcmanus/CRE RatioNOT REPORTEDNormal9-20[place] [facility]'S HospitalComment on above:Performed By: #### CDP, CP, LIP, TROPI, LIPRF, GLYHGB #### [facility] [address] [place] [address] 79268 Switch Foreman: FABIANA Mcmanustaging:NOT REPORTEDNormalAk[place] Children'S HospitalComment on above:Performed By: #### CDP, CP, LIP, TROPI, LIPRF, GLYHGB #### [facility] [address] [place] [address] Switch Foreman: Josh Mcmanus Metabolic Panel w/ Reflex to MGon [id number] gap [Moles/Vol]14 mmol/L9 - 17 mmol/LMMarietta Memorial Hospital, KYBun/Cre RatioNOT REPORTEDMerWyandot Memorial Hospital, KYCalcium [Mass/Vol]8.8 mg/dL8.6 - 10.4 mg/dLTrumbull Memorial Hospital, KYChloride [Moles/Vol]94 mmol/LLow98 - 107 mmol/LMMarietta Memorial Hospital, KYCO2 [Moles/Vol]23 mmol/L20 - 31 mmol/LMMarietta Memorial Hospital, [place] Creatinine [Mass/Vol]0.36 mg/dLLow0.5 - 0.9 mg/dLTrumbull Memorial Hospital, KYGFR >60>60 mL/minTrumbull Memorial Hospital, KYGFR Non->60>60 mL/min [facility], KYGFR/1.73 sq M predicted among non-blacks MDRD (S/P/Bld) [Vol rate/Area][facility], KYComment on above:Average GFR for 70 or more years old: 75 mL/min/1.73sq m Chronic Kidney Disease: <60 mL/min/1.73sq m Kidney failure: <15 mL/min/1.73sq m eGFR calculated using average adult body mass. Additional eGFR calculator available at: http://www.TalentBin/multiple_crcl_2012.htm GFR/1.73 sq M predicted among non-blacks MDRD (S/P/Bld) [Vol rate/Area]NOT REPORTEDTrumbull Memorial Hospital, KYGlucose [Mass/Vol]89 mg/dL70 - 99 mg/dLTrumbull Memorial Hospital, KYInterpretation and review of laboratory resultsAbnormalTrumbull Memorial Hospital, KYPotassium [Moles/Vol]3.7 mmol/L3.7 - 5.3 mmol/LMMarietta Memorial Hospital, KYSodium [Moles/Vol]131 mmol/QGol255 - 144 mmol/[facility], KYUrea nitrogen [Mass/Vol]16 mg/dL8 - 23 mg/dLTrumbull Memorial Hospital, KYCBC auto differentialon [id number] (Bld) [#/Vol]0.06 10*3/uLHenry County Hospital [place], KYBasophils/100 WBC (Bld)1 %0 - 2 %[facility], KYDifferential TypeNOT REPORTEDTrumbull Memorial Hospital, KYEosinophils (Bld) [#/Vol]0.13 10*3/[facility], [place] Eosinophils/100 WBC (Bld)1 %1 - 4 %[facility], KYErythrocyte distribution width (RBC) [Ratio]14.6 %High11.8 - 14.4 %[facility], KYHematocrit (Bld) [Volume fraction]41.6 %36.3 - 47.1 %[facility], KYHemoglobin (Bld) [Mass/Vol]13.4 g/dL11.9 - 15.1 g/dLTrumbull Memorial Hospital, KYImmature granulocytes (Bld) [#/Vol]1 %Tvxf3LpdiwTrumbull Memorial Hospital, KYImmature granulocytes (Bld) [#/Vol]0.11 10*3/[facility], KYInterpretation and review of laboratory results AbnormalTrumbull Memorial Hospital, KYLymphocytes (Bld) [#/Vol]2.56 10*3/[facility], KYLymphocytes/100 WBC (Bld)24 %24 - 43 %[facility], KYMCH (RBC) [Entitic mass]29.3 pg25.2 - 33.5 pgTrumbull Memorial Hospital, KYMCHC (RBC) [Mass/Vol]32.2 g/dL28.4 - 34.8 g/dLTrumbull Memorial Hospital, KYMCV (RBC) [Entitic vol]90.8 fL82.6 - 102.9 fLTrumbull Memorial Hospital, KYMonocytes (Bld) [#/Vol]0.78 10*3/[facility], KYMonocytes/100 WBC (Bld)7 %3 - 12 %[facility], KYPlatelet mean volume (Bld) [Entitic vol]10.6 fL8.1 - 13.5 fLTrumbull Memorial Hospital, KYPlatelets (Bld) [#/Vol]NOT REPORTEDTrumbull Memorial Hospital, KYPlatelets (Bld) [#/Vol]241 10*3/uLTrumbull Memorial Hospital, TXRBC (Bld) [#/Vol]4.58 10*6/uL3.95 - 5.11 m/uLTrumbull Memorial Hospital, [place] RBC morphology finding Nom (Bld)ANISOCYTOSIS PRESENTChester, [place] Segmented neutrophils/100 WBC (Bld)66 %High36 - 65 %[facility], TXSegs Absolute7.00[facility], TXWBC (Bld) [#/Vol]10.6 10*3/uLTrumbull Memorial Hospital, TXWBC (Bld) [#/Vol]0.0 10*3/uL0.0 per 100 WBCChester, KYWBC Morphology NOT REPORTEDChester, KYCB with Diffon [id number]. Basophil0.06 k/uL Normal0.00-0.20[place] [facility]'S HospitalComment on above:Performed By: #### CDP, CP, LIP, TROPI, LIPRF, GLYHGB #### [facility] [employer] [address] [place] [address] Switch Foreman: Marie Mcmanus.Imm.Granulocyte0.11 k/uLNormal0.00-0.30[place] [facility]'S HospitalComment on above:Performed By: #### CDP, CP, LIP, TROPI, LIPRF, GLYHGB #### [facility] [employer] [address] [place] [address]98 Switch Foreman: Marie Mcmanus.Neutrophil (Seg)7.00 k/uLNormal1.50-8.10 [place] [facility]'S HospitalComment on above:Performed By: #### CDP, CP, LIP, TROPI, LIPRF, GLYHGB #### [facility] [employer] [address] [place] [address] 244[address] Switch Foreman: Brandon Anaya MDBasophils/100 WBC (Bld)1 %Normal0-2MJohn George Psychiatric PavilionComment on above:Performed By: #### CDP, CP, LIP, TROPI, LIPRF, GLYHGB #### [facility] [employer] [address] [place] [address] Switch Foreman: Brandon Anaya MDEosinophils (Bld) [#/Vol]0.13 10*3/uLNormal 0.00-0.44[place] [facility]'S HospitalComment on above:Performed By: #### CDP, CP, LIP, TROPI, LIPRF, GLYHGB #### [facility] [employer] [address] [place] [address] Switch Foreman: Brandon Anaya MDEosinophils/100 WBC (Bld)1 %Normal1-4[place] [facility]'S HospitalComment on above:Performed By: #### CDP, CP, LIP, TROPI, LIPRF, GLYHGB #### [place] [address] Switch Foreman: Brandon Anaya MDErythrocyte distribution width (RBC) [Ratio]14.6 %High11.8-14.4[place] [facility]'S HospitalComment on above:Performed By: #### CDP, CP, LIP, TROPI, LIPRF, GLYHGB #### [facility] [employer] [address] [place] [address] Switch Foreman: Brandon Anaya MDHematocrit (Bld) [Volume fraction]41.6 %Normal 36.3-47.1MJohn George Psychiatric PavilionComment on above:Performed By: #### CDP, CP, LIP, TROPI, LIPRF, GLYHGB #### [facility] [employer] [address] [place] [address] Switch Foreman: Brandon Anaya MDHemoglobin (Bld) [Mass/Vol]13.4 g/dLNormal 11.9-15.1MJohn George Psychiatric PavilionComment on above:Performed By: #### CDP, CP, LIP, TROPI, LIPRF, GLYHGB #### [facility] [employer] [address] [place] [address]161 Switch Foreman: Brandon Anaya MDImmature granulocytes (Bld) [#/Vol]1 %Uzbx0ZncsaAk[place] Children'S HospitalComment on above:Performed By: #### CDP, CP, LIP, TROPI, LIPRF, GLYHGB #### [address] [address] Switch Foreman: Kortney Mcmanusmphocytes (Bld) [#/Vol]2.56 10*3/uLNormal 1.10-3.70[place] [facility]'S HospitalComment on above:Performed By: #### CDP, CP, LIP, TROPI, LIPRF, GLYHGB #### [facility] [employer] [address] [place] [address] Switch Foreman: Luiza Mcmanushocytes/100 WBC (Bld)24 %Ierosp30-25HcazsAk[place] Children'S HospitalComment on above:Performed By: #### CDP, CP, LIP, TROPI, LIPRF, GLYHGB #### [facility] [employer] [address] [place] [address] Switch Foreman: LIZZY McmanusCH (RBC) [Entitic mass]29.3 dfSqxtax48.2-33.5 [place] [facility]'S HospitalComment on above:Performed By: #### CDP, CP, LIP, TROPI, LIPRF, GLYHGB #### [facility] [employer] [address] [place] [address]758 Switch Foreman: LIZZY McmanusCHC (RBC) [Mass/Vol]32.2 g/fWVjaati69.4-34.8 [place] [facility]'S HospitalComment on above:Performed By: #### CDP, CP, LIP, TROPI, LIPRF, GLYHGB #### [facility] [employer] [address] [place] [address]123 Switch Foreman: LIZZY McmanusCV (RBC) [Entitic vol]90.8 jVJdqfbu04.6-102.9 [place] [facility]'S HospitalComment on above:Performed By: #### CDP, CP, LIP, TROPI, LIPRF, GLYHGB #### [address] [address] Switch Foreman: LIZZY Mcmanusonocytes (Bld) [#/Vol]0.78 10*3/uLNormal 0.10-1.20[place] [facility]'S HospitalComment on above:Performed By: #### CDP, CP, LIP, TROPI, LIPRF, GLYHGB #### [facility] [employer] [address] [place] [address] Switch Foreman: LIZZY Mcmanusonocytes/100 WBC (Bld)7 %Normal3-12[place] [facility]'S HospitalComment on above:Performed By: #### CDP, CP, LIP, TROPI, LIPRF, GLYHGB #### [facility] [employer] [address] [place] [address] Switch Foreman: Modesta Mcmanusophil (Seg)66 %Isnx51-78OnjflAk[place] Children'S HospitalComment on above:Performed By: #### CDP, CP, LIP, TROPI, LIPRF, GLYHGB #### [place] [address] Switch Foreman: Brandon Anaya MDNRBC Automated0.0 per 100 WBCNormal0.0[place] [facility]'S HospitalComment on above:Performed By: #### CDP, CP, LIP, TROPI, LIPRF, GLYHGB #### [facility] [employer] [address] [place] [address] Switch Foreman: BLADIMIR Mcmanuslatelet mean volume (Bld) [Entitic vol]10.6 fL Normal8.1-13.5[place] Children'S HospitalComment on above:Performed By: #### CDP, CP, LIP, TROPI, LIPRF, GLYHGB #### [facility] [address] [place] [address] Switch Foreman: Geremias Mcmanustelets (Bld) [#/Vol]241 10*3/oIKjjeqt283-017 [place] [facility]'S HospitalComment on above:Performed By: #### CDP, CP, LIP, TROPI, LIPRF, GLYHGB #### [facility] [address] [place] [address] Switch Foreman: RICHA Mcmanus (Bld) [#/Vol]4.58 10*6/uLNormal3.95-5.11 [place] [facility]'S HospitalComment on above:Performed By: #### CDP, CP, LIP, TROPI, LIPRF, GLYHGB #### [address] [address] Switch Foreman: RICHA Mcmanus morphology finding Nom (Bld)ANISOCYTOSIS [facility] Medical CenterComment on above:Performed By: #### CDP, CP, LIP, TROPI, LIPRF, GLYHGB #### [facility] [employer] [address] [place], [place] [address] Switch Foreman: LUCIAN Mcmanus (Bld) [#/Vol]10.6 10*3/uLNormal3.5-11.3MJohn George Psychiatric PavilionComment on above:Performed By: #### CDP, CP, LIP, TROPI, LIPRF, GLYHGB #### [facility] [employer] [address] [place] [address] 66[address] Switch Foreman: Gustabo Mcmanus Diff PerformedNOT [facility] Medical CenterComment on above:Performed By: #### CDP, CP, LIP, TROPI, LIPRF, GLYHGB #### [facility] [employer] [address] [place] [address] 245[address] Switch Foreman: Geremias Mcmanustemariluz (Bld) [#/Vol]NOT REPORTEDOhioHealth Arthur G.H. Bing, MD, Cancer CenterComment on above:Performed By: #### CDP, CP, LIP, TROPI, LIPRF, GLYHGB #### [employer] [address] [place], [place] [phone] Switch Foreman: TAMMY McmanusBC MorphologyNOT REPORTEDNoSalem Regional Medical CenterComment on above:Performed By: #### CDP, CP, LIP, TROPI, LIPRF, GLYHGB #### [employer] [address] [place], [place] [phone] Switch Foreman: WENDY Mcmanus LUMBAR SPINE W WO CONTRASTon 73-14-7289Um compression fracture of the lumbar spine is [...] Radiol 2013; 10(10):789-794; J Vasc Surg. 2018; 67:2-77[facility], KYEXAMINATION: MRI OF THE LUMBAR SPINE [...] roots are intact. The neural foramina are intact.[facility]- [place], Radha, papo Incoming Radiant Results From [facility] - 10/15/2019 11:11 PM EDT EXAMINATION: MRI [...] 2013; 10(10):789-794; J Vasc Surg. 2018; 67:2-77 [place], KYMYCOPLASMA PNEUMONIAE ANTIBODY, IGMon [id number] pneumo IgM0.12<0.91[facility], TXComment on above: Reference Range: <=0.90 Negative 0.91-1.09 Equivocal >=1.10 Positive Mycoplasma Ab, IgMon 40-86-9643Rmjwrtnopl Ab, IgM0.12Normal<0.91[place] Children'S HospitalComment on above:Result Comment: Reference Range: <=0.90 Negative 0.91-1.09 Equivocal >=1.10 PositivePerformed By: #### CDP, CP, LIP, TROPI, LIPRF, GLYHGB #### [employer] [address] [place] [address] 43[address] Switch Foreman: LENORE Mcmanus Glucose Fingerstickon 83-11-7384Duanznx [Mass/Vol]100 mg/dL65 - 105 mg/dLChe[place], KYGlucose [Mass/Vol]99 mg/dL 65 - 105 mg/dLTrumbull Memorial Hospital, KYGlucose [Mass/Vol]91 mg/dL65 - 105 mg/dLTrumbull Memorial Hospital, KYGlucose [Mass/Vol]95 mg/dL65 - 105 mg/dLTrumbull Memorial Hospital, KYRENIN on 66-78-7573Aagki Activity0.1ng/mL/hrTrumbull Memorial Hospital, KYComment on above: (NOTE) INTERPRETIVE INFORMATION: [...] angiotensinogen is decreased. See Compliance Statement D: [email or web address] Performed By: [employer] [address] [place] [address] 94772 Back Closer: Nik Rosas MD, MS Renin CommentNOT [facility], TXRenin Activityon 84-14-9094Fawwv Activity0.1 ng/mL/hrNoSalem Regional Medical CenterComment on above: Result Comment: (NOTE) INTERPRETIVE INFORMATION: Renin Activity Adult, Normal sodium diet: Supine ................. 0.2-1.6 ng/mL/hr Upright ................ 0.5-4.0 ng/mL/hr Children, Normal sodium diet, Supine: Point Clear (1-7 days) ..... 2.0-35.0 ng/mL/hr Cord blood [...] angiotensinogen is decreased. See Compliance Statement D: [email or web address] Performed By: [employer] [address] [place] [address] 68293 Back Closer: Nik Rosas MD, MSPerformed By: #### CDP, CP, LIP, TROPI, LIPRF, GLYHGB #### [place] [address] [place] [phone] Switch Foreman: Xochilt Mcmanus 73-90-7062Nhczuzoxbuz7 ng/dLTrumbull Memorial Hospital TXComscheurer hospital on above:(NOTE) INTERPRETIVE INFORMATION: Aldosterone, Serum [...] reference intervals for this test in the [facility] ([employer]). Performed By: [employer] [address] [place] [address] Back Closer: Nik Rosas MD, MS Aldosterone CommentNOT REPORTEDTrumbull Memorial Hospital, Edgardosteroneon 10-14-2019 Aldosterone5.0 ng/dLNoSalem Regional Medical CenterComment on above: Result Comment: (NOTE) [...] reference intervals for this test in the [facility] ([employer]). Performed By: [employer] [address] [place] [address] 68187 Back Closer: Nik Rosas MD, MSPerformed By: #### CDP, CP, LIP, TROPI, LIPRF, GLYHGB #### [address] [phone] Switch Foreman: Josh Mcmanus Metab w/rfx MGon 10-14-2019(cont.)Normal [place] Children'S HospitalComment on above:Result Comment: Average GFR for 70 or more years old: 75 mL/min/1.73sq m Chronic Kidney Disease: <60 mL/min/1.73sq m Kidney failure: <15 mL/min/1.73sq m eGFR calculated using average adult body mass. Additional eGFR calculator available at: http://www.ParkAround.com.Phigital/multiple_crcl_2012.htmPerformed By: #### CDP, CP, LIP, TROPI, LIPRF, GLYHGB #### [place] [address] Switch Foreman: Brandon Anaya MDAnion gap [Moles/Vol]13 mmol/LNormal9-17[place] Children'S HospitalComment on above:Performed By: #### CDP, CP, LIP, TROPI, LIPRF, GLYHGB #### [address] [phone] Switch Foreman: Brandon Anaya MDCalcium [Mass/Vol]8.5 mg/dLLow8.6-10.4[place] Children'S HospitalComment on above:Performed By: #### CDP, CP, LIP, TROPI, LIPRF, GLYHGB #### [facility] [address] [place] [address] 47583 Switch Foreman: NEHAL Mcmanushloride [Moles/Vol]91 mmol/JOxh12-521BojevAk[place] Children'S HospitalComment on above:Performed By: #### CDP, CP, LIP, TROPI, LIPRF, GLYHGB #### [facility] [address] [place] [address] 11109 Switch Foreman: Brandon Anaya MDCO2 [Moles/Vol]26 mmol/KGqmejm93-63QpknvAk[place] Children'S HospitalComment on above:Performed By: #### CDP, CP, LIP, TROPI, LIPRF, GLYHGB #### [address] [address] Switch Foreman: NEHAL Mcmanusreatinine [Mass/Vol]0.48 mg/dLLow0.50-0.90[place] Children'S HospitalComment on above:Performed By: #### CDP, CP, LIP, TROPI, LIPRF, GLYHGB #### [facility] [employer] [address] [place] [address] 62535 Switch Foreman: Brandon Anaya MDGFR, Amer>60Normal>60[place] Children'S HospitalComment on above:Performed By: #### CDP, CP, LIP, TROPI, LIPRF, GLYHGB #### [facility] [employer] [address] [place] [address] 84279 Switch Foreman: Brandon Anaya MDGFR,non Amer>60Normal>60[place] Children'S HospitalComment on above:Performed By: #### CDP, CP, LIP, TROPI, LIPRF, GLYHGB #### [facility] [employer] [address] [place] [address] 76020 Switch Foreman: Brandon Anaya MDGlucose [Mass/Vol]104 mg/gHWrck98-71Oqmeu Shc Specialty HospitalComment on above:Performed By: #### CDP, CP, LIP, TROPI, LIPRF, GLYHGB #### [facility] [address] [place] [address] 71885 Switch Foreman: BLADIMIR Mcmanusotassium [Moles/Vol]3.7 mmol/LNormal3.7-5.3 [place] [facility]'S HospitalComment on above:Performed By: #### CDP, CP, LIP, TROPI, LIPRF, GLYHGB #### [facility] [address] [place] [address] 03994 Switch Foreman: FABIANA Mcmanusodium [Moles/Vol]130 mmol/AMcf495-681VufdhAk[place] Children'S HospitalComment on above:Performed By: #### CDP, CP, LIP, TROPI, LIPRF, GLYHGB #### [facility] [address] [place] [address] 70133 Switch Foreman: Rebecca Mcmanus nitrogen [Mass/Vol]19 mg/dLNormal8-23[place] Children'S HospitalComment on above:Performed By: #### CDP, CP, LIP, TROPI, LIPRF, GLYHGB #### [facility] [address] [place] [address] 72082 Switch Foreman: RADHA Mcmanus/CRE UlicesOT REPORTEDNormal9-20[place] Children'S HospitalComment on above:Performed By: #### CDP, CP, LIP, TROPI, LIPRF, GLYHGB #### [facility] [address] [place] [address] 49452 Switch Foreman: FABIANA Mcmanustaging:NOT REPORTEDNormalAk[place] Children'S HospitalComment on above:Performed By: #### CDP, CP, LIP, TROPI, LIPRF, GLYHGB #### [facility] [address] [place] [address] 87903 Switch Foreman: Daysi Mcmanus Metabolic Panel w/ Reflex to MGon 62-39-2170Rfrcg gap [Moles/Vol]13 mmol/L9 - 17 mmol/LMkind[facility]- [place], KYBun/Cre RatioNOT REPORTEDMerWashington Rural Health [facility]- [place], KYCalcium [Mass/Vol]8.5 mg/dLLow8.6 - 10.4 mg/dLEast [facility]- [place], KYChloride [Moles/Vol]91 mmol/LLow98 - 107 mmol/LMsuburban [facility] & [facility]- [place], KYCO2 [Moles/Vol]26 mmol/L20 - 31 mmol/LMkindred hospital limay [facility]- [place], [place] Creatinine [Mass/Vol]0.48 mg/dLLow0.5 - 0.9 mg/dLEast [facility]- [place], KYGFR >60>60 mL/minTrumbull Memorial Hospital, KYGFR Non->60>60 mL/min [facility], KYGFR/1.73 sq M predicted among non-blacks MDRD (S/P/Bld) [Vol rate/Area][facility], KYComment on above:Average GFR for 70 or more years old: 75 mL/min/1.73sq m Chronic Kidney Disease: <60 mL/min/1.73sq m Kidney failure: <15 mL/min/1.73sq m eGFR calculated using average adult body mass. Additional eGFR calculator available at: http://www.TalentBin/multiple_crcl_2012.htm GFR/1.73 sq M predicted among non-blacks MDRD (S/P/Bld) [Vol rate/Area]NOT REPORTEDTrumbull Memorial Hospital, KYGlucose [Mass/Vol]104 mg/mHQhpe91 - 99 mg/dLTrumbull Memorial Hospital, KYInterpretation and review of laboratory resultsAbnormalEast [facility]- [place], KYPotassium [Moles/Vol]3.7 mmol/L3.7 - 5.3 mmol/LMWilson [facility]- [place], KYSodium [Moles/Vol]130 mmol/FMfv777 - 144 mmol/LMsuburban community hospital [facility]- [place], KYUrea nitrogen [Mass/Vol]19 mg/dL8 - 23 mg/dLTrumbull Memorial Hospital, KYCBC auto differential on 07-56-4342Lmnidhvj Lymphocytes3 %[facility], TXAtypical Lymphocytes Absolute0.30k/[facility], KYBasophils (Bld) [#/Vol]0.00 10*3/[facility], KYBasophils/100 WBC (Bld)0 %0 - 2 %[facility], TXDifferential TypeNOT REPORTEDTrumbull Memorial Hospital, KYEosinophils (Bld) [#/Vol]0.10 10*3/[facility], KYEosinophils/100 WBC (Bld)1 %1 - 4 %[facility], TXErythrocyte distribution width (RBC) [Ratio]14.7 %High11.8 - 14.4 %[facility], [place] Hematocrit (Bld) [Volume fraction]39.5 %36.3 - 47.1 %[facility], [place] Hemoglobin (Bld) [Mass/Vol]12.9 g/dL11.9 - 15.1 g/dLTrumbull Memorial Hospital, TXImmature granulocytes (Bld) [#/Vol]0.10 10*3/[facility], TXImmature granulocytes (Bld) [#/Vol]1 %Vgvn3XnxnjTrumbull Memorial Hospital, TXInterpretation and review of laboratory resultsAbnormFairfield Medical Center, CLARALymphocytes (Bld) [#/Vol]2.80 10*3/[facility], CLARALymphocytes/100 WBC (Bld)28 %24 - 44 %[facility], TXMCH (RBC) [Entitic mass]29.5 pg25.2 - 33.5 pgTrumbull Memorial Hospital, TXMCHC (RBC) [Mass/Vol]32.7 g/dL28.4 - 34.8 g/dLTrumbull Memorial Hospital, TXMCV (RBC) [Entitic vol]90.2 fL82.6 - 102.9 fLTrumbull Memorial Hospital, TXMonocytes (Bld) [#/Vol]0.50 10*3/[facility], TXMonocytes/100 WBC (Bld)5 %1 - 7 %[facility], CLARA Morphology Alfredo (Bld) [Interp]ANISOCYTOSIS PRESENTTrumbull Memorial Hospital, KYPlatelet mean volume (Bld) [Entitic vol]10.1 fL8.1 - 13.5 fLTrumbull Memorial Hospital, KYPlatelets (Bld) [#/Vol]190 10*3/uLTrumbull Memorial Hospital, KYPlatelets (Bld) [#/Vol]NOT REPORTED [facility], TXRBC (Bld) [#/Vol]4.38 10*6/uL3.95 - 5.11 m/uLTrumbull Memorial Hospital, TXRBC morphology finding Nom (Bld)NOT REPORTEDTrumbull Memorial Hospital, TXSegmented neutrophils/100 WBC (Bld)62 %36 - 66 %[facility], TXSegs Absolute6.20[facility], KYWBC (Bld) [#/Vol]10.0 10*3/uLTrumbull Memorial Hospital, KYWBC (Bld) [#/Vol]0.0 10*3/uL0.0 per 100 WBCTrumbull Memorial Hospital, TXWBC MorphologyNOT REPORTED [facility], TXCBC with Diffon 18-20-8675Wjd. Atypical Lymphs0.30 k/uL NormalAk[place] Children'S HospitalComment on above:Performed By: #### CDP, CP, LIP, TROPI, LIPRF, GLYHGB #### [employer] [address] [place], [place] [phone] Switch Foreman: Marie Mcmanus. Basophil0.00 k/uLNormal0.0-0.2MJohn George Psychiatric PavilionComment on above:Performed By: #### CDP, CP, LIP, TROPI, LIPRF, GLYHGB #### [employer] [address] [place], [place] [phone] Switch Foreman: Marie Mcmanus.Imm.Granulocyte0.10 k/uLNormal0.00-0.30[place] Children'S HospitalComment on above:Performed By: #### CDP, CP, LIP, TROPI, LIPRF, GLYHGB #### [facility] [address] [place] [address] 39903 Switch Foreman: Marie Mcmanus.Neutrophil (Seg)6.20 k/uLNormal1.8-7.7[place] Children'S HospitalComment on above:Performed By: #### CDP, CP, LIP, TROPI, LIPRF, GLYHGB #### [address] [address] Switch Foreman: Brandon Anaya MDAtypical Lymphs3 %NormalAk[place] Children'S HospitalComment on above:Performed By: #### CDP, CP, LIP, TROPI, LIPRF, GLYHGB #### [address] [address] Switch Foreman: Brandon Anaya MDBasophils/100 WBC (Bld)0 %Normal0-2MJohn George Psychiatric PavilionComment on above:Performed By: #### CDP, CP, LIP, TROPI, LIPRF, GLYHGB #### [address] [address] Switch Foreman: Brandon Anaya MDEosinophils (Bld) [#/Vol]0.10 10*3/uLNormal 0.0-0.4[place] Children'S HospitalComment on above:Performed By: #### CDP, CP, LIP, TROPI, LIPRF, GLYHGB #### [address] [address] Switch Foreman: Brandon Anaya MDEosinophils/100 WBC (Bld)1 %Normal1-4[place] Children'S HospitalComment on above:Performed By: #### CDP, CP, LIP, TROPI, LIPRF, GLYHGB #### [address] [address] Switch Foreman: Brandon Anaya MDImmature granulocytes (Bld) [#/Vol]1 %Lnqi5IgfalAk[place] Children'S HospitalComment on above:Performed By: #### CDP, CP, LIP, TROPI, LIPRF, GLYHGB #### [address] [address] Switch Foreman: Brandon Anaya MDLymphocytes (Bld) [#/Vol]2.80 10*3/uLNormal 1.0-4.8[place] [facility]'S HospitalComment on above:Performed By: #### CDP, CP, LIP, TROPI, LIPRF, GLYHGB #### [place] [address] Switch Foreman: Brandon Anaya MDLymphocytes/100 WBC (Bld)28 %Ugmevn42-64SbgjaAk[place] Children'S HospitalComment on above:Performed By: #### CDP, CP, LIP, TROPI, LIPRF, GLYHGB #### [facility] [employer] [address] [place] [address] Switch Foreman: LIZZY Mcmanusonocytes (Bld) [#/Vol]0.50 10*3/uLNormal0.1-0.8 [place] [facility]'S HospitalComment on above:Performed By: #### CDP, CP, LIP, TROPI, LIPRF, GLYHGB #### [place] [address] Switch Foreman: LIZZY Mcmanusonocytes/100 WBC (Bld)5 %Normal1-7[place] Children'S HospitalComment on above:Performed By: #### CDP, CP, LIP, TROPI, LIPRF, GLYHGB #### [facility] [employer] [address] [place] [address] 02942 Switch Foreman: Brandon Anaya MDMorphology Alfredo (Bld) [Interp]ANISOCYTOSIS PRESENTNormalAk[place] Children'S HospitalComment on above:Performed By: #### CDP, CP, LIP, TROPI, LIPRF, GLYHGB #### [facility] [address] [place] [address] 61512 Switch Foreman: Brandon Anaya MDNeutrophil (Seg)62 %Pgwqbp26-61EdbqcAk[place] Children'S HospitalComment on above:Performed By: #### CDP, CP, LIP, TROPI, LIPRF, GLYHGB #### [address] [address] Switch Foreman: Brandon Anaya MDErythrocyte distribution width (RBC) [Ratio]14.7 %High11.8-14.4[place] Children'S HospitalComment on above:Performed By: #### CDP, CP, LIP, TROPI, LIPRF, GLYHGB #### [address] [address] Switch Foreman: Brandon Anaya MDHematocrit (Bld) [Volume fraction]39.5 %Normal 36.3-47.1MJohn George Psychiatric PavilionComment on above:Performed By: #### CDP, CP, LIP, TROPI, LIPRF, GLYHGB #### [address] [address] Switch Foreman: Brandon Anaya MDHemoglobin (Bld) [Mass/Vol]12.9 g/dLNormal 11.9-15.1MJohn George Psychiatric PavilionComment on above:Performed By: #### CDP, CP, LIP, TROPI, LIPRF, GLYHGB #### [address] [address] Switch Foreman: LIZZY McmanusCH (RBC) [Entitic mass]29.5 lgAqvcaw96.2-33.5 [place] [facility]'S HospitalComment on above:Performed By: #### CDP, CP, LIP, TROPI, LIPRF, GLYHGB #### [facility] [employer] [address] [place] [address] 19057 Switch Foreman: LIZZY McmanusCHC (RBC) [Mass/Vol]32.7 g/xDDmdhhl35.4-34.8 [place] [facility]'S HospitalComment on above:Performed By: #### CDP, CP, LIP, TROPI, LIPRF, GLYHGB #### [facility] [employer] [address] [place] [address] 29744 Switch Foreman: LIZZY McmanusCV (RBC) [Entitic vol]90.2 jMLnehiv98.6-102.9 [place] [facility]'S HospitalComment on above:Performed By: #### CDP, CP, LIP, TROPI, LIPRF, GLYHGB #### [facility] [employer] [address] [place] [address] 049[address] Switch Foreman: Brandon Anaya MDNRBC Automated0.0 per 100 WBCNormal0.0[place] Children'S HospitalComment on above:Performed By: #### CDP, CP, LIP, TROPI, LIPRF, GLYHGB #### [facility] [employer] [address] [place] [address] Switch Foreman: Nadeem Mcmanus mean volume (Bld) [Entitic vol]10.1 fL Normal8.1-13.5[place] Children'S HospitalComment on above:Performed By: #### CDP, CP, LIP, TROPI, LIPRF, GLYHGB #### [facility] [employer] [address] [place] [address] 7[address]12 Switch Foreman: Bon Mcmanus (Bld) [#/Vol]190 10*3/bRQnltwk896-555 [place] [facility]'S HospitalComment on above:Performed By: #### CDP, CP, LIP, TROPI, LIPRF, GLYHGB #### [facility] [employer] [address] [place] [address] 02827 Switch Foreman: DREW McmanusBC (Bld) [#/Vol]4.38 10*6/uLNormal3.95-5.11 [place] [facility]'S HospitalComment on above:Performed By: #### CDP, CP, LIP, TROPI, LIPRF, GLYHGB #### [facility] [address] [place] [address] Switch Foreman: LUCIAN Mcmanus (Bld) [#/Vol]10.0 10*3/uLNormal3.5-11.3MJohn George Psychiatric PavilionComment on above:Performed By: #### CDP, CP, LIP, TROPI, LIPRF, GLYHGB #### [facility] [address] [place] [address] 54034 Switch Foreman: Gustabo Mcmanus PerformedNOT REPORTEDNormalAk[place] Children'S HospitalComment on above:Performed By: #### CDP, CP, LIP, TROPI, LIPRF, GLYHGB #### [facility] [address] [place] [address] 6[address] Switch Foreman: Bon Mcmanus (Bld) [#/Vol]NOT REPORTEDNormalAk[place] Children'S HospitalComment on above:Performed By: #### CDP, CP, LIP, TROPI, LIPRF, GLYHGB #### [facility] [address] [place] [address] 20[address] Switch Foreman: RICHA Mcmanus morphology finding Nom (Bld)NOT REPORTED NormalAk[place] Children'S HospitalComment on above:Performed By: #### CDP, CP, LIP, TROPI, LIPRF, GLYHGB #### [facility] [address] [place] [address] Switch Foreman: LUCIAN Mcmanus MorphologyNOT REPORTEDFulton State HospitalalAk[place] Children'S HospitalComment on above:Performed By: #### CDP, CP, LIP, TROPI, LIPRF, GLYHGB #### [facility] [address] [place] [address] Switch Foreman: Brandon Anaya, MDMETANEPHRINES PLASMA FREEon 10-14-2019 Metaneph/Plasma InterpSee [facility], KYComment on above:(NOTE) INTERPRETIVE INFORMATION: Metanephrines, Plasma [...] should be considered. See Compliance Statement B: [employer] Performed By: [employer] [address] [place] [address] Back Closer: Nik Rosas MD, MS Metanephrine0.14 nmol/L0 - 0.49 nmol/[facility], KYNormetanephrine0.73 nmol/L0 - 0.89 nmol/[facility], KYMetanephrine, Plasmaon 10-14-2019 Metaneph Interee [facility] Ohio[facility] Rehabilitation HospitalComment on above: Result Comment: (NOTE) INTERPRETIVE [...] should be considered. See Compliance Statement B: [employer]/CS Performed By: [place] [address] Back Closer: Nik Rosas MD, MSPerformed By: #### CDP, CP, LIP, TROPI, LIPRF, GLYHGB #### [facility] [address] [place] [address] Switch Foreman: LIZZY Mcmanusetanephrine0.14 nmol/LNormal0.00-0.49[place] [facility]'S HospitalComment on above:Performed By: #### CDP, CP, LIP, TROPI, LIPRF, GLYHGB #### [facility] [address] [place] [address] Switch Foreman: Brandon Anaya MDNormetanephrine0.73 nmol/LNormal0.00-0.89[place] [facility]'S HospitalComment on above:Performed By: #### CDP, CP, LIP, TROPI, LIPRF, GLYHGB #### [facility] [address] [place] [address] Switch Foreman: BLADIMIR McmanusOC Glucose Fingerstickon 68-28-0945Oxleows [Mass/Vol]86 mg/dL65 - 105 mg/dLTrumbull Memorial Hospital, KYGlucose [Mass/Vol]105 mg/dL 65 - 105 mg/dLTrumbull Memorial Hospital, KYGlucose [Mass/Vol]159 mg/eVGqlm12 - 105 mg/dL [facility], KYInterpretation and review of laboratory resultsAbnoOhioHealth Grady Memorial Hospital, KYGlucose [Mass/Vol]113 mg/mXTqbt74 - 105 mg/dLTrumbull Memorial Hospital, [place] Interpretation and review of laboratory resultsAbnoOhioHealth Grady Memorial Hospital, KYT. pallidum Abon 10-14-2019T. pallidum, IgGNONREACTIVENONREACTIVETrumbull Memorial Hospital, KYComment on above: T. pallidum antibodies are not detected. There is no serological evidence of infection with T. pallidum (early primary syphilis cannot be excluded). Retest in 2-4 weeks if syphilis is clinically suspect. T.pallidum Ab Screenon 10-14-2019T.pallidum Ab ScreenNONREACTIVENormalNRAkron Children'S HospitalComment on above:Result Comment: T. pallidum antibodies are not detected. There is no serological evidence of infection with T. pallidum (early primary syphilis cannot be excluded). Retest in 2-4 weeks if syphilis is clinically suspect.Performed By: #### CDP, CP, LIP, TROPI, LIPRF, GLYHGB #### [facility] [address] [place], [place] [phone] Switch Foreman: Brandon Anaya MDAMMONIAon 75-89-0520Khzwwdb (P) [Mass/Vol]28 umol/L11 - 51 umol/LMercy Health- [place], KYAmmoniaon 82-50-3757Kgawqtd (P) [Mass/Vol]28 umol/GWaksay26-11WwdvuAk[place] Children'S HospitalComment on above: Performed By: #### CDP, CP, LIP, TROPI, LIPRF, GLYHGB #### [employer] [facility] [place], [place] [phone] Switch Foreman: Brandon Anaya MDBLFEDERAL MEDICAL CENTER, [place] GAS, VENOUSon [id number] TestNOT REPORTEDMercy Health- [place], KYaPTT Coag (Bld) [Time]37.0 sMercy Health- [place], [place] Carboxyhemoglobin1.3 %0 - 5 %[facility]- [place], KYComment on above: Reference Range: Non-Smokers 0-2% Average Smoker 2-4% Heavy Smoker <10% QWA0UOOR AIRMercy Health- [place], KYHCO3, Jrivpz38.4 mmol/L24 - 30 mmol/LMercy Health- [place], KYInterpretation and review of laboratory resultsAbnormalMercy Health- [place], KYMethemoglobinNOT REPORTED0 - 1.5 %[facility]- [place], KYModeNOT REPORTEDMercy Health- [place], KYNegative Base Excess, VenNOT REPORTED0 - 2 mmol/L [facility]- [place], KYNOTIFICATIONNOT REPORTEDMercy Health- [place], KYNOTIFICATION TIMENOT REPORTEDMercy Health- [place], KYO2 Device/Flow/%NOT REPORTEDMercy Health- [place], KYOxygen saturation in Blood78.1 %60 - 85 %[facility]- [place], KYOxyhemoglobin NOT FYLMUPEP22 - 98 %[facility]- [place], KYpCO2, Ven42.6[facility]cy [...] RespiratoryNOT REPORTEDMercy Health- [place], KYTotal Hb NOT MHJRONDJ77 - 16 g/dlMercy Health- [place], KYTotal RateNOT REPORTEDMercy Health- [place], KYVTNOT REPORTEDMercy Health- [place], KYBasic Metab w/rfx MGon 10-13-2019 Potassium [Moles/Vol]3.4 mmol/LLow3.7-5.3MJohn George Psychiatric PavilionComment on above:Performed By: #### CDP, CP, LIP, TROPI, LIPRF, GLYHGB #### [employer] [address] [place] [address] Switch Foreman: Brandon Anaya MD(cont.)[facility] Comment on above:Result Comment: Average GFR for 70 or more years old: 75 mL/min/1.73sq m Chronic Kidney Disease: <60 mL/min/1.73sq m Kidney failure: <15 mL/min/1.73sq m eGFR calculated using average adult body mass. Additional eGFR calculator available at: http://www.ParkAround.com.Phigital/multiple_crcl_2012.htmPerformed By: #### CDP, CP, LIP, TROPI, LIPRF, GLYHGB #### [employer] [address] [place] [address] Switch Foreman: Brandon Anaya MDAnion gap [Moles/Vol]16 mmol/LNormal9-17[place] Children'S HospitalComment on above:Performed By: #### CDP, CP, LIP, TROPI, LIPRF, GLYHGB #### [facility] [address] [place] [phone] Switch Foreman: NEHAL Mcmanusalcium [Mass/Vol]9.0 mg/dLNormal8.6-10.4[place] Children'S HospitalComment on above:Performed By: #### CDP, CP, LIP, TROPI, LIPRF, GLYHGB #### [facility] [employer] [address] [place] [address] Switch Foreman: Brandon Anaya MDChloride [Moles/Vol]90 mmol/BXaz57-326YoefaAkron Children'S HospitalComment on above:Performed By: #### CDP, CP, LIP, TROPI, LIPRF, GLYHGB #### [facility] [employer] [address] [place] [address] Switch Foreman: Brandon Anaya MDCO2 [Moles/Vol]25 mmol/VLzrrgt16-39VpfyhAkron Children'S HospitalComment on above:Performed By: #### CDP, CP, LIP, TROPI, LIPRF, GLYHGB #### [facility] [employer] [address] [place] [address] Switch Foreman: Brandon Anaya MDCreatinine [Mass/Vol]0.47 mg/dLLow0.50-0.90[place] Children'S HospitalComment on above:Performed By: #### CDP, CP, LIP, TROPI, LIPRF, GLYHGB #### [facility] [employer] [address] [place] [address] Switch Foreman: CAROLYN Mcmanus, Amer>60Normal>60MerMission Bernal campusComment on above:Performed By: #### CDP, CP, LIP, TROPI, LIPRF, GLYHGB #### [facility] [address] [place] [address] Switch Foreman: Brandon Anaya MDGFR,non Amer>60Normal>60MerMission Bernal campusComment on above:Performed By: #### CDP, CP, LIP, TROPI, LIPRF, GLYHGB #### [facility] [address] [place] [address] Switch Foreman: Brandon Anaya MDGlucose [Mass/Vol]113 mg/yTXzdk11-72XaghlRonald Reagan UCLA Medical CenterComment on above:Performed By: #### CDP, CP, LIP, TROPI, LIPRF, GLYHGB #### [address] [address] Switch Foreman: FABIANA Mcmanusodium [Moles/Vol]131 mmol/JKeu464-218FjmojAk[place] Children'S HospitalComment on above:Performed By: #### CDP, CP, LIP, TROPI, LIPRF, GLYHGB #### [facility] [address] [place] [address] 900[address] Switch Foreman: Brandon Anaya MDUrea nitrogen [Mass/Vol]16 mg/dLNormal8-23MerMission Bernal campusComment on above:Performed By: #### CDP, CP, LIP, TROPI, LIPRF, GLYHGB #### [facility] [address] [place] [address] Switch Foreman: RADHA Mcmanus/CRE UlicesOT REPORTEDNormal9-20[place] Children'S HospitalComment on above:Performed By: #### CDP, CP, LIP, TROPI, LIPRF, GLYHGB #### [facility] [address] [place] [address] Switch Foreman: FABIANA Mcmanustaging:NOT REPORTEDNormPremier HealthComment on above:Performed By: #### CDP, CP, LIP, TROPI, LIPRF, GLYHGB #### [employer] [address] [place] [address] Switch Foreman: Radha Mcmanussaint joseph berea Metabolic Panel w/ Reflex to MGon [id number] gap [Moles/Vol]16 mmol/L9 - 17 mmol/LMMarietta Memorial Hospital, KYBun/Cre RatioNOT REPORTEDTrumbull Memorial Hospital, KYCalcium [Mass/Vol]9.0 mg/dL8.6 - 10.4 mg/dLTrumbull Memorial Hospital, KYChloride [Moles/Vol]90 mmol/LLow98 - 107 mmol/[facility], KYCO2 [Moles/Vol]25 mmol/L20 - 31 mmol/[facility], [place] Creatinine [Mass/Vol]0.47 mg/dLLow0.5 - 0.9 mg/dLTrumbull Memorial Hospital, KYGFR >60>60 mL/minTrumbull Memorial Hospital, KYGFR Non->60>60 mL/min [facility], KYGFR/1.73 sq M predicted among non-blacks MDRD (S/P/Bld) [Vol rate/Area]NOT REPORTEDTrumbull Memorial Hospital, KYGFR/1.73 sq M predicted among non- blacks MDRD (S/P/Bld) [Vol rate/Area][facility], KYComment on above: Average GFR for 70 or more years old: 75 mL/min/1.73sq m Chronic Kidney Disease: <60 mL/min/1.73sq m Kidney failure: <15 mL/min/1.73sq m eGFR calculated using average adult body mass. Additional eGFR calculator available at: http://www.[email or web address].Phigital/multiple_crcl_2012.htm Glucose [Mass/Vol]113 mg/rTWjlc84 - 99 mg/dLTrumbull Memorial Hospital, KYInterpretation and review of laboratory resultsAbnormFairfield Medical Center, KYPotassium [Moles/Vol]3.4 mmol/LLow3.7 - 5.3 mmol/[facility]- [place], KYSodium [Moles/Vol] 131 mmol/GUwi653 - 144 mmol/LMWilson Memorial Hospital- [place], KYUrea nitrogen [Mass/Vol]16 mg/dL8 - 23 mg/dLEast [facility]- [place], KYCBC auto differentialon [id number] (Bld) [#/Vol]0.07 10*3/[facility]- [place], KYBasophils/100 WBC (Bld)1 %0 - 2 % [facility], KYDifferential TypeNOT REPORTEDHenry County Hospital [place], KYEosinophils (Bld) [#/Vol]10*3/[facility]- [place], KYEosinophils/100 WBC (Bld)0 %Low1 - 4 % [facility]- [place], KYErythrocyte distribution width (RBC) [Ratio]15.0 %High11.8 - 14.4 %[facility] [place], KYHematocrit (Bld) [Volume fraction]45.5 %36.3 - 47.1 % [facility], KYHemoglobin (Bld) [Mass/Vol]14.5 g/dL11.9 - 15.1 g/dLHenry County Hospital [place], KYImmature granulocytes (Bld) [#/Vol]0.14 10*3/[facility]- [place], KYImmature granulocytes (Bld) [#/Vol]1 %Yogg8EdbtmTrumbull Memorial Hospital, KYInterpretation and review of laboratory resultsAbnormMansfield Hospital [place], KYLymphocytes (Bld) [#/Vol]2.84 10*3/[facility] [place], KYLymphocytes/100 WBC (Bld)23 %Low24 - 43 % [facility], KYMCH (RBC) [Entitic mass]29.8 pg25.2 - 33.5 pgHenry County Hospital [place], KYMCHC (RBC) [Mass/Vol]31.9 g/dL28.4 - 34.8 g/dLHenry County Hospital [place], KYMCV (RBC) [Entitic vol]93.4 fL82.6 - 102.9 fLHenry County Hospital [place], KYMonocytes (Bld) [#/Vol]1.22 10*3/uLOhioHealth O'Bleness Hospital, KYMonocytes/100 WBC (Bld)10 %3 - 12 % [facility], KYPlatelet mean volume (Bld) [Entitic vol]10.5 fL8.1 - 13.5 fL [facility], KYPlatelets (Bld) [#/Vol]NOT REPORTEDTrumbull Memorial Hospital, [place] Platelets (Bld) [#/Vol]210 10*3/uLTrumbull Memorial Hospital, TXRBC (Bld) [#/Vol]4.87 10*6/uL3.95 - 5.11 m/uLTrumbull Memorial Hospital, KYRBC morphology finding Nom (Bld) ANISOCYTOSIS PRESENTTrumbull Memorial Hospital, KYSegmented neutrophils/100 WBC (Bld)65 % 36 - 65 %[facility], KYSegs Absolute8.01[facility], KYWBC (Bld) [#/Vol]12.3 10*3/uLHighTrumbull Memorial Hospital, KYWBC (Bld) [#/Vol]0.0 10*3/uL0.0 per 100 WBCTrumbull Memorial Hospital, KYWBC MorphologyNOT REPORTEDTrumbull Memorial Hospital, KYCBC with Diffon [id number]. Basophil0.07 k/uLNormal0.00-0.20[place] Children'S HospitalComment on above:Performed By: #### CDP, CP, LIP, TROPI, LIPRF, GLYHGB #### [employer] [facility] [place], [place] [phone] Switch Foreman: Marie Mcmanus.Imm.Granulocyte0.14 k/uLNormal0.00-0.30[place] Children'S HospitalComment on above:Performed By: #### CDP, CP, LIP, TROPI, LIPRF, GLYHGB #### [employer] [address] [place] [address] Switch Foreman: Marie Mcmanus.Neutrophil (Seg)8.01 k/uLNormal1.50-8.10 [place] Children'S HospitalComment on above:Performed By: #### CDP, CP, LIP, TROPI, LIPRF, GLYHGB #### [address] [address] Switch Foreman: Brandon Anaya MDBasophils/100 WBC (Bld)1 %Normal0-2Mkindred hospital limay Shc Specialty HospitalComment on above:Performed By: #### CDP, CP, LIP, TROPI, LIPRF, GLYHGB #### [address] [address] Switch Foreman: Brandon Anaya MDEosinophils (Bld) [#/Vol]10*3/uLNormal0.00-0.44 [place] [facility]'S HospitalComment on above:Performed By: #### CDP, CP, LIP, TROPI, LIPRF, GLYHGB #### [place] [address] Switch Foreman: MAU Mcmanusosinophils/100 WBC (Bld)0 %Low1-4[place] Children'S HospitalComment on above:Performed By: #### CDP, CP, LIP, TROPI, LIPRF, GLYHGB #### [facility] [employer] [address] [place] [address] Switch Foreman: Brandon Anaya MDErythrocyte distribution width (RBC) [Ratio]15.0 %High11.8-14.4[place] Children'S HospitalComment on above:Performed By: #### CDP, CP, LIP, TROPI, LIPRF, GLYHGB #### [facility] [employer] [address] [place] [address] 28660 Switch Foreman: Brandon Anaya MDHematocrit (Bld) [Volume fraction]45.5 %Normal 36.3-47.1Mkindred hospital limay Shc Specialty HospitalComment on above:Performed By: #### CDP, CP, LIP, TROPI, LIPRF, GLYHGB #### [address] [address] Switch Foreman: Brandon Anaya MDHemoglobin (Bld) [Mass/Vol]14.5 g/dLNormal 11.9-15.1MJohn George Psychiatric PavilionComment on above:Performed By: #### CDP, CP, LIP, TROPI, LIPRF, GLYHGB #### [address] [address] Switch Foreman: Brandon Anaya MDImmature granulocytes (Bld) [#/Vol]1 %Gred6FwfprAk[place] Children'S HospitalComment on above:Performed By: #### CDP, CP, LIP, TROPI, LIPRF, GLYHGB #### [address] [address] Switch Foreman: Brandon Anaya MDLymphocytes (Bld) [#/Vol]2.84 10*3/uLNormal 1.10-3.70[place] Children'S HospitalComment on above:Performed By: #### CDP, CP, LIP, TROPI, LIPRF, GLYHGB #### [address] [address] Switch Foreman: Kortney Mcmanusmphocytes/100 WBC (Bld)23 %Twx60-68WzgbbAk[place] Children'S HospitalComment on above:Performed By: #### CDP, CP, LIP, TROPI, LIPRF, GLYHGB #### [address] [address] Switch Foreman: STEFFANIE Mcmanus (RBC) [Entitic mass]29.8 bhUctywm71.2-33.5 [place] [facility]'S HospitalComment on above:Performed By: #### CDP, CP, LIP, TROPI, LIPRF, GLYHGB #### [address] [address] Switch Foreman: LIZZY McmanusCHC (RBC) [Mass/Vol]31.9 g/rDDsmmnq00.4-34.8 [place] [facility]'S HospitalComment on above:Performed By: #### CDP, CP, LIP, TROPI, LIPRF, GLYHGB #### [address] [address] Switch Foreman: LIZZY McmanusCV (RBC) [Entitic vol]93.4 qABaiuer74.6-102.9 [place] [facility]'S HospitalComment on above:Performed By: #### CDP, CP, LIP, TROPI, LIPRF, GLYHGB #### [address] [address] Switch Foreman: LIZZY Mcmanusonocytes (Bld) [#/Vol]1.22 10*3/uLHigh0.10-1.20 [place] [facility]'S HospitalComment on above:Performed By: #### CDP, CP, LIP, TROPI, LIPRF, GLYHGB #### [address] [address] Switch Foreman: LIZZY Mcmanusonocytes/100 WBC (Bld)10 %Normal3-12[place] Children'S HospitalComment on above:Performed By: #### CDP, CP, LIP, TROPI, LIPRF, GLYHGB #### [address] [address] Switch Foreman: Brandon Anaya MDNeutrophil (Seg)65 %Trsyhj02-98FlcuoAk[place] Children'S HospitalComment on above:Performed By: #### CDP, CP, LIP, TROPI, LIPRF, GLYHGB #### [facility] [employer] [address] [place] [address] Switch Foreman: Brandon Anaya MDNRBC Automated0.0 per 100 WBCNormal0.0[place] Children'S HospitalComment on above:Performed By: #### CDP, CP, LIP, TROPI, LIPRF, GLYHGB #### [address] [address] Switch Foreman: Nadeem Mcmanus mean volume (Bld) [Entitic vol]10.5 fL Normal8.1-13.5[place] Children'S HospitalComment on above:Performed By: #### CDP, CP, LIP, TROPI, LIPRF, GLYHGB #### [address] [address] Switch Foreman: Geremias Mcmanustemariluz (Bld) [#/Vol]210 10*3/oDCvkisv576-676 [place] [facility]'S HospitalComment on above:Performed By: #### CDP, CP, LIP, TROPI, LIPRF, GLYHGB #### [address] [address] Switch Foreman: RICHA Mcmanus (Bld) [#/Vol]4.87 10*6/uLNormal3.95-5.11 [place] [facility]'S HospitalComment on above:Performed By: #### CDP, CP, LIP, TROPI, LIPRF, GLYHGB #### [address] [address] Switch Foreman: RICHA Mcmanus morphology finding Nom (Bld)ANISOCYTOSIS PRESENTNormalAk[place] Children'S HospitalComment on above:Performed By: #### CDP, CP, LIP, TROPI, LIPRF, GLYHGB #### [address] [address] Switch Foreman: LUCIAN Mcmanus (Bld) [#/Vol]12.3 10*3/uLHigh3.5-11.3MJohn George Psychiatric PavilionComment on above:Performed By: #### CDP, CP, LIP, TROPI, LIPRF, GLYHGB #### [address] [address] Switch Foreman: Gustabo Mcmanus PerformedNOT REPORTEDOhioHealth Arthur G.H. Bing, MD, Cancer CenterComment on above:Performed By: #### CDP, CP, LIP, TROPI, LIPRF, GLYHGB #### [facility] [place] [address] Switch Foreman: Bon Mcmanus (Bld) [#/Vol]NOT REPORTEDNoSalem Regional Medical CenterComment on above:Performed By: #### CDP, CP, LIP, TROPI, LIPRF, GLYHGB #### [facility] [place] [address] Switch Foreman: LUCIAN Mcmanus MorphologyNOT REPORTEDOhioHealth Arthur G.H. Bing, MD, Cancer CenterComment on above:Performed By: #### CDP, CP, LIP, TROPI, LIPRF, GLYHGB #### [facility] [place] [address] Switch Foreman: Yane Mcmanusgnesiumon 57-90-9511Ioudzxkzd [Mass/Vol]2.2 mg/dLNormal1.6-2.6Mer[facility]c Specialty HospitalComment on above:Performed By: #### CDP, CP, LIP, TROPI, LIPRF, GLYHGB #### [employer] [facility] [place] [address] Switch Foreman: Brandon Anaya MDMagnesium [Mass/Vol]2.2 mg/dL1.6 - 2.6 mg/dL [facility], KYPOC Glucose Fingerstickon 38-42-7850Aajrdpl [Mass/Vol]121 mg/vDZpcn24 - 105 mg/dLTrumbull Memorial Hospital, KYInterpretation and review of laboratory resultsAbnormFairfield Medical Center, KYGlucose [Mass/Vol]100 mg/dL65 - 105 mg/dLTrumbull Memorial Hospital, KYGlucose [Mass/Vol]104 mg/dL65 - 105 mg/dLChe[place], KYGlucose [Mass/Vol]123 mg/pWCzth37 - 105 mg/dLChe[place], [place] Interpretation and review of laboratory resultsAbnoBethany, [place] Venous Blood Gaseson 74-66-4723Gbig Temp.37.0OhioHealth Arthur G.H. Bing, MD, Cancer CenterComment on above:Performed By: #### CDP, CP, LIP, TROPI, LIPRF, GLYHGB #### [facility] [address] [place] [address] Switch Foreman: NEHAL Mcmanuseast adams rural healthcarelidia Hgb1.3 %Normal0-5[place] Children'S HospitalComment on above:Result Comment: Reference Range: Non-Smokers 0-2% Average Smoker 2-4% Heavy Smoker <10%Performed By: #### CDP, CP, LIP, TROPI, LIPRF, GLYHGB #### [facility] [employer] [address] [place] [address] Switch Foreman: Brandon Anaya MDFIO2ROOM OhioHealthComment on above:Performed By: #### CDP, CP, LIP, TROPI, LIPRF, GLYHGB #### [facility] [address] [place] [address] Switch Foreman: Brandon Anaya MDHCO3 (Bld) [Moles/Vol]28.4 mmol/KOaaupu30-75 [place] [facility]'S HospitalComment on above:Performed By: #### CDP, CP, LIP, TROPI, LIPRF, GLYHGB #### [facility] [address] [place] [address] Switch Foreman: Brandon Anaya MDOxygen (Bld) [Partial pressure]41.1 mm[Hg]Normal 30-50[place] Children'S HospitalComment on above:Performed By: #### CDP, CP, LIP, TROPI, LIPRF, GLYHGB #### [facility] [address] [place] [address] Switch Foreman: Brandon Anaya MDOxygen saturation in Blood78.1 %Honusq49.0-85.0 [place] [facility]'S HospitalComment on above:Performed By: #### CDP, CP, LIP, TROPI, LIPRF, GLYHGB #### [address] [address] Switch Foreman: Bladimir McmanusCO242.9Cgcpsv25-27AwhjmAk[place] Children'S HospitalComment on above:Performed By: #### CDP, CP, LIP, TROPI, LIPRF, GLYHGB #### [address] [address] Switch Foreman: Brandon Anaya [facility] (Bld)7.439 [pH]High7.320-7.420[place] Children'S HospitalComment on above:Performed By: #### CDP, CP, LIP, TROPI, LIPRF, GLYHGB #### [address] [address] Switch Foreman: BLADIMIR Mcmanusositive Base Excess4.2 mmol/LHigh0.0-2.0[place] Children'S HospitalComment on above:Performed By: #### CDP, CP, LIP, TROPI, LIPRF, GLYHGB #### [address] [address] Switch Foreman: Lalita Mcmanus TestNOT REPORTEDNormalAk[place] Children'S HospitalComment on above:Performed By: #### CDP, CP, LIP, TROPI, LIPRF, GLYHGB #### [address] [address] Switch Foreman: LIZZY McmanusethemoglobinNOT REPORTEDNormal0.0-1.5[place] Children'S HospitalComment on above:Performed By: #### CDP, CP, LIP, TROPI, LIPRF, GLYHGB #### [facility] [employer] [address] [place] [address] Switch Foreman: LIZZY McmanusodeNOT REPORTEDNormalAk[place] Children'S HospitalComment on above:Performed By: #### CDP, CP, LIP, TROPI, LIPRF, GLYHGB #### [facility] [address] [place] [address] Switch Foreman: Brandon nAaya MDNegative Base ExcessNOT REPORTEDNormal0.0-2.0 [place] [facility]'S HospitalComment on above:Performed By: #### CDP, CP, LIP, TROPI, LIPRF, GLYHGB #### [facility] [address] [place] [address] Switch Foreman: Brandon Anaya MDNotification TimeNOT REPORTEDNormalAk[place] Children'S HospitalComment on above:Performed By: #### CDP, CP, LIP, TROPI, LIPRF, GLYHGB #### [facility] [address] [place] [address] Switch Foreman: Brandon Anaya MDNotification:NOT REPORTEDNormalAk[place] Children'S HospitalComment on above:Performed By: #### CDP, CP, LIP, TROPI, LIPRF, GLYHGB #### [facility] [address] [place] [address] Switch Foreman: Brandon Anaya MDO2 Device/Flow/%NOT REPORTEDNormalAk[place] Children'S HospitalComment on above:Performed By: #### CDP, CP, LIP, TROPI, LIPRF, GLYHGB #### [facility] [address] [place] [address] Switch Foreman: Brandon Anaya MDOxyhemoglobinNOT QPBLKXRLHboyxq15.0-98.0[place] [facility]'S HospitalComment on above:Performed By: #### CDP, CP, LIP, TROPI, LIPRF, GLYHGB #### [facility] [address] [place] [address] Switch Foreman: BLADIMIR Mcmanusco2 Adj'd for Temp.NOT FFSBXHFLUqhrhv35-56RbhcdAk[place] Children'S HospitalComment on above:Performed By: #### CDP, CP, LIP, TROPI, LIPRF, GLYHGB #### [facility] [address] [place] [address] Switch Foreman: JOHANA Mcmanus/CPAPNOT REPORTEDNormalAk[place] Children'S HospitalComment on above:Performed By: #### CDP, CP, LIP, TROPI, LIPRF, GLYHGB #### [facility] [address] [place] [address] Switch Foreman: Bladimir Mcmanus Adjst'd for Temp.NOT REPORTEDNormal 7.320-7.420[place] [facility]'S HospitalComment on above:Performed By: #### CDP, CP, LIP, TROPI, LIPRF, GLYHGB #### [facility] [address] [place] [address] Switch Foreman: Bladimir McmanusO2 Adj'd for Temp.NOT SHZRYQUCPkcdng83-31LakjtAk[place] Children'S HospitalComment on above:Performed By: #### CDP, CP, LIP, TROPI, LIPRF, GLYHGB #### [facility] [address] [place] [address] Switch Foreman: ROXIE Mcmanus REPORTEDNormalAk[place] Children'S HospitalComment on above:Performed By: #### CDP, CP, LIP, TROPI, LIPRF, GLYHGB #### [facility] [address] [place] [address] Switch Foreman: MDPt. [place] PositionNOT REPORTEDNormalAk[place] Children'S HospitalComment on above:Performed By: #### CDP, CP, LIP, TROPI, LIPRF, GLYHGB #### [facility] [address] [place] [address] Switch Foreman: Shannan Mcmanus RateNOT REPORTEDNormalMercy Shc Specialty HospitalComment on above:Performed By: #### CDP, CP, LIP, TROPI, LIPRF, GLYHGB #### [facility] [address] [place] [address] Switch Foreman: Cooper Mcmanus DrawnNOT REPORTEDNormalMercy Shc Specialty HospitalComment on above:Performed By: #### CDP, CP, LIP, TROPI, LIPRF, GLYHGB #### [facility] [address] [place] [address] Switch Foreman: Perico Mcmanus for RespiratoryNOT REPORTEDNormalMercy Shc Specialty HospitalComment on above:Performed By: #### CDP, CP, LIP, TROPI, LIPRF, GLYHGB #### [facility] [address] [place] [address] Switch Foreman: Orlin Mcmanus HbNOT BNBZPAGKOhalrh47.0-16.0[facility] Specialty HospitalComment on above:Performed By: #### CDP, CP, LIP, TROPI, LIPRF, GLYHGB #### [facility] [address] [place] [address] Switch Foreman: Orlin Mcmanus RateNOT REPORTEDNormalMercy Shc Specialty HospitalComment on above:Performed By: #### CDP, CP, LIP, TROPI, LIPRF, GLYHGB #### [facility] [address] [place] [address] Switch Foreman: Brandon Anaya MDVTSONIA REPORTEDNormalMercy Shc Specialty HospitalComment on above:Performed By: #### CDP, CP, LIP, TROPI, LIPRF, GLYHGB #### [facility] [address] [place] [address] Switch Foreman: Xochilt Mcmanus [id number]:NOT REPORTED [facility], MD, Cancer CenterComment on above:Performed By: #### CDP, CP, LIP, TROPI, LIPRF, GLYHGB #### [employer] [address] [place] [address] [phone] Switch Foreman: Josh Mcmanus Metab w/rfx MGon 16-61-5396Injyhesot [Moles/Vol]3.3 mmol/LLow3.7-5.3[facility] Specialty HospitalComment on above: Performed By: #### CDP, CP, LIP, TROPI, LIPRF, GLYHGB #### [facility] [address] [place] [address] Switch Foreman: Brandon Anaya MD(cont.)[facility] Comment on above:Result Comment: Average GFR for 70 or more years old: 75 mL/min/1.73sq m Chronic Kidney Disease: <60 mL/min/1.73sq m Kidney failure: <15 mL/min/1.73sq m eGFR calculated using average adult body mass. Additional eGFR calculator available at: http://www.ParkAround.com.Phigital/multiple_crcl_2012.htmPerformed By: #### CDP, CP, LIP, TROPI, LIPRF, GLYHGB #### [facility] [address] [place] [address] Switch Foreman: James Mcmanus gap [Moles/Vol]12 mmol/LNormal9-17[place] [facility]'S HospitalComment on above:Performed By: #### CDP, CP, LIP, TROPI, LIPRF, GLYHGB #### [employer] [address] [place] [address] [phone] Switch Foreman: NEHAL Mcmanusalcium [Mass/Vol]8.6 mg/dLNormal8.6-10.4[place] [facility]'S HospitalComment on above:Performed By: #### CDP, CP, LIP, TROPI, LIPRF, GLYHGB #### [employer] [address] [place] [address] Switch Foreman: NEHAL Mcmanushloride [Moles/Vol]94 mmol/ROku60-790LrdgnAk[place] Children'S HospitalComment on above:Performed By: #### CDP, CP, LIP, TROPI, LIPRF, GLYHGB #### [address] [address] Switch Foreman: Brandon Anaya MDCO2 [Moles/Vol]26 mmol/VRjyjao40-80UbvatAk[place] Children'S HospitalComment on above:Performed By: #### CDP, CP, LIP, TROPI, LIPRF, GLYHGB #### [address] [address] Switch Foreman: NEHAL Mcmanusreatinine [Mass/Vol]0.46 mg/dLLow0.50-0.90[place] [facility]'S HospitalComment on above:Performed By: #### CDP, CP, LIP, TROPI, LIPRF, GLYHGB #### [address] [address] Switch Foreman: Brandon Anaya MDGFR, Amer>60Normal>60[place] Children'S HospitalComment on above:Performed By: #### CDP, CP, LIP, TROPI, LIPRF, GLYHGB #### [facility] [employer] [address] [place] [address] Switch Foreman: Brandon Anaya MDGFR,non Amer>60Normal>60[place] [facility]'S HospitalComment on above:Performed By: #### CDP, CP, LIP, TROPI, LIPRF, GLYHGB #### [facility] [employer] [address] [place] [address] Switch Foreman: Brandon Anaya MDGlucose [Mass/Vol]136 mg/zGUjkk51-15DsgpbJohn George Psychiatric PavilionComment on above:Performed By: #### CDP, CP, LIP, TROPI, LIPRF, GLYHGB #### [facility] [place] [address] Switch Foreman: FABIANA Mcmanusodium [Moles/Vol]132 mmol/BWph969-805OugfiAk[place] Children'S HospitalComment on above:Performed By: #### CDP, CP, LIP, TROPI, LIPRF, GLYHGB #### [facility] [address] [place] [address] Switch Foreman: Brandon Anaya MDUrea nitrogen [Mass/Vol]16 mg/dLNormal8-23[place] [facility]'S HospitalComment on above:Performed By: #### CDP, CP, LIP, TROPI, LIPRF, GLYHGB #### [facility] [address] [place] [address] Switch Foreman: RADHA Mcmanus/CRE RatioNOT REPORTEDNormal9-20[place] [facility]'S HospitalComment on above:Performed By: #### CDP, CP, LIP, TROPI, LIPRF, GLYHGB #### [facility] [address] [place] [address] Switch Foreman: FABIANA Mcmanustaging:NOT REPORTEDNormalAk[place] Children'S HospitalComment on above:Performed By: #### CDP, CP, LIP, TROPI, LIPRF, GLYHGB #### [facility] [address] [place] [address] Switch Foreman: Josh Mcmanus Metabolic Panel w/ Reflex to MGon [id number] gap [Moles/Vol]12 mmol/L9 - 17 mmol/LMer[facility]- [place], KYBun/Cre RatioNOT REPORTEDMer Health- [place], KYCalcium [Mass/Vol]8.6 mg/dL8.6 - 10.4 mg/dLMercy Health- [place], KYChloride [Moles/Vol]94 mmol/LLow98 - 107 mmol/LMercy Health- [place], KYCO2 [Moles/Vol]26 mmol/L20 - 31 mmol/LMMarietta [facility], [place] Creatinine [Mass/Vol]0.46 mg/dLLow0.5 - 0.9 mg/dLTrumbull Memorial Hospital, KYGFR >60>60 mL/minTrumbull Memorial Hospital, KYGFR Non->60>60 mL/min [facility], KYGFR/1.73 sq M predicted among non-blacks MDRD (S/P/Bld) [Vol rate/Area][facility], KYComment on above:Average GFR for 70 or more years old: 75 mL/min/1.73sq m Chronic Kidney Disease: <60 mL/min/1.73sq m Kidney failure: <15 mL/min/1.73sq m eGFR calculated using average adult body mass. Additional eGFR calculator available at: http://www.TalentBin/multiple_crcl_2012.htm GFR/1.73 sq M predicted among non-blacks MDRD (S/P/Bld) [Vol rate/Area]NOT REPORTEDTrumbull Memorial Hospital, KYGlucose [Mass/Vol]136 mg/uSRdkh37 - 99 mg/dLTrumbull Memorial Hospital, KYInterpretation and review of laboratory resultsAbnormalTrumbull Memorial Hospital, KYPotassium [Moles/Vol]3.3 mmol/LLow3.7 - 5.3 mmol/[facility], KYSodium [Moles/Vol]132 mmol/RYbw610 - 144 mmol/[facility], KYUrea nitrogen [Mass/Vol]16 mg/dL8 - 23 mg/dLTrumbull Memorial Hospital, KYCBC auto differential on [id number] (Bld) [#/Vol]0.04 10*3/uLTrumbull Memorial Hospital, [place] Basophils/100 WBC (Bld)0 %0 - 2 %[facility], KYDifferential TypeNOT REPORTEDTrumbull Memorial Hospital, KYEosinophils (Bld) [#/Vol]10*3/uLTrumbull Memorial Hospital, [place] Eosinophils/100 WBC (Bld)0 %Low1 - 4 %[facility], KYErythrocyte distribution width (RBC) [Ratio]14.7 %High11.8 - 14.4 %[place] Hematocrit (Bld) [Volume fraction]40.5 %36.3 - 47.1 %[place] Hemoglobin (Bld) [Mass/Vol]12.7 g/dL11.9 - 15.1 g/dLChe[place], KYImmature granulocytes (Bld) [#/Vol]0.11 10*3/[facility], TXImmature granulocytes (Bld) [#/Vol]1 %Oxdl7DfbosChe[place], KYInterpretation and review of laboratory resultsAbnormalTrumbull Memorial Hospital, TXLymphocytes (Bld) [#/Vol]1.50 10*3/[facility], CLARALymphocytes/100 WBC (Bld)12 %Low24 - 43 %[place], KYMCH (RBC) [Entitic mass]29.4 pg25.2 - 33.5 pgChe[place], [place] MCHC (RBC) [Mass/Vol]31.4 g/dL28.4 - 34.8 g/dLChe[place], KYMCV (RBC) [Entitic vol]93.8 fL82.6 - 102.9 fLMorrow [facility] CLARAMonocytes (Bld) [#/Vol] 0.87 10*3/[facility], CLARAMonocytes/100 WBC (Bld)7 %3 - 12 %[place], KYPlatelet mean volume (Bld) [Entitic vol]10.7 fL8.1 - 13.5 fLTrumbull Memorial Hospital, KYPlatelets (Bld) [#/Vol]196 10*3/[facility], KYPlatelets (Bld) [#/Vol]NOT REPORTED[place], KYRBC (Bld) [#/Vol]4.32 10*6/uL3.95 - 5.11 m/[facility], TXRBC morphology finding Nom (Bld)ANISOCYTOSIS PRESENT [facility], TXSegmented neutrophils/100 WBC (Bld)79 %High36 - 65 %[place], KYSe Absolute9.64HighUniversity Hospitals Geneva Medical Center (Bld) [#/Vol]12.2 10*3/uLHighUniversity Hospitals Geneva Medical Center (Bld) [#/Vol]0.0 10*3/uL0.0 per 100 WBCTrumbull Memorial Hospital, [facility] MorphologyNOT REPORTEDTrumbull Memorial Hospital, TXCB with Diffon [id number]. Basophil0.04 k/uLNormal0.00-0.20[place] [facility] Comment on above:Performed By: #### CDP, CP, LIP, TROPI, LIPRF, GLYHGB #### [employer] [address] [place] [address] Switch Foreman: MDAbs. MariettaImm.Granulocyte0.11 k/uLNormal0.00-0.30[place] [facility]'S HospitalComment on above:Performed By: #### CDP, CP, LIP, TROPI, LIPRF, GLYHGB #### [employer] [address] [place] [address] 99707 Switch Foreman: Marie Mcmanus.Neutrophil (Seg)9.64 k/uLHigh1.50-8.10[place] [facility] HospitalComment on above:Performed By: #### CDP, CP, LIP, TROPI, LIPRF, GLYHGB #### [facility] [employer] [address] [place] [address] 26846 Switch Foreman: Brandon Anaya MDBasophils/100 WBC (Bld)0 %Normal0-2MJohn George Psychiatric PavilionComment on above:Performed By: #### CDP, CP, LIP, TROPI, LIPRF, GLYHGB #### [facility] [employer] [address] [place] [address] 60397 Switch Foreman: Brandon Anaya MDEosinophils (Bld) [#/Vol]10*3/uLNormal0.00-0.44 [place] [facility]S HospitalComment on above:Performed By: #### CDP, CP, LIP, TROPI, LIPRF, GLYHGB #### [facility] [address] [place] [address] Switch Foreman: Brandon Anaya MDEosinophils/100 WBC (Bld)0 %Low1-4[place] [facility]S HospitalComment on above:Performed By: #### CDP, CP, LIP, TROPI, LIPRF, GLYHGB #### [facility] [address] [place] [address] Switch Foreman: Brandon Anaya MDErythrocyte distribution width (RBC) [Ratio]14.7 %High11.8-14.4[place] [facility]'S HospitalComment on above:Performed By: #### CDP, CP, LIP, TROPI, LIPRF, GLYHGB #### [place] [address] Switch Foreman: Brandon Anaya MDHematocrit (Bld) [Volume fraction]40.5 %Normal 36.3-47.1MJohn George Psychiatric PavilionComment on above:Performed By: #### CDP, CP, LIP, TROPI, LIPRF, GLYHGB #### [facility] [employer] [address] [place] [address] Switch Foreman: Brandon Anaya MDHemoglobin (Bld) [Mass/Vol]12.7 g/dLNormal 11.9-15.1MJohn George Psychiatric PavilionComment on above:Performed By: #### CDP, CP, LIP, TROPI, LIPRF, GLYHGB #### [facility] [employer] [address] [place] [address] Switch Foreman: Brandon Anaya MDImmature granulocytes (Bld) [#/Vol]1 %Udup2GbdclAk[place] Children'S HospitalComment on above:Performed By: #### CDP, CP, LIP, TROPI, LIPRF, GLYHGB #### [facility] [employer] [address] [place] [address] Switch Foreman: Brandon Anaya MDLymphocytes (Bld) [#/Vol]1.50 10*3/uLNormal 1.10-3.70[place] [facility]'S HospitalComment on above:Performed By: #### CDP, CP, LIP, TROPI, LIPRF, GLYHGB #### [address] [address] Switch Foreman: Kortney Mcmanusmphocytes/100 WBC (Bld)12 %Krp17-54JildwAk[place] Children'S HospitalComment on above:Performed By: #### CDP, CP, LIP, TROPI, LIPRF, GLYHGB #### [address] [address] Switch Foreman: LIZZY McmanusCH (RBC) [Entitic mass]29.4 foPbxisa21.2-33.5 [place] [facility]'S HospitalComment on above:Performed By: #### CDP, CP, LIP, TROPI, LIPRF, GLYHGB #### [address] [address] Switch Foreman: LIZZY McmanusCHC (RBC) [Mass/Vol]31.4 g/uIRevxvg18.4-34.8 [place] [facility]'S HospitalComment on above:Performed By: #### CDP, CP, LIP, TROPI, LIPRF, GLYHGB #### [facility] [employer] [address] [place] [address] Switch Foreman: LIZZY McmanusCV (RBC) [Entitic vol]93.8 yFDubheu10.6-102.9 [place] [facility]'S HospitalComment on above:Performed By: #### CDP, CP, LIP, TROPI, LIPRF, GLYHGB #### [facility] [employer] [address] [place] [address] 235[address] Switch Foreman: Brandon Madoff, MDMonocytes (Bld) [#/Vol]0.87 10*3/uLNormal 0.10-1.20[place] [facility]S HospitalComment on above:Performed By: #### CDP, CP, LIP, TROPI, LIPRF, GLYHGB #### [facility] [employer] [address] [place] [address] Switch Foreman: Brandon Anaya MDMonocytes/100 WBC (Bld)7 %Normal3-12[place] [facility]'S HospitalComment on above:Performed By: #### CDP, CP, LIP, TROPI, LIPRF, GLYHGB #### [address] [address] Switch Foreman: Shakir Mcmanus (Seg)79 %Kocd52-56KqnmbAk[place] Children'S HospitalComment on above:Performed By: #### CDP, CP, LIP, TROPI, LIPRF, GLYHGB #### [facility] [employer] [address] [place] [address] Switch Foreman: Brandon Anaya MDNRBC Automated0.0 per 100 WBCNormal0.0[place] [facility]'S HospitalComment on above:Performed By: #### CDP, CP, LIP, TROPI, LIPRF, GLYHGB #### [facility] [employer] [address] [place] [address] Switch Foreman: Nadeem Mcmanus mean volume (Bld) [Entitic vol]10.7 fL Normal8.1-13.5[place] Children'S HospitalComment on above:Performed By: #### CDP, CP, LIP, TROPI, LIPRF, GLYHGB #### [facility] [employer] [address] [place] [address] Switch Foreman: Geremias Mcmanustemariluz (Bld) [#/Vol]196 10*3/vFMtswqv484-235 [place] [facility]S HospitalComment on above:Performed By: #### CDP, CP, LIP, TROPI, LIPRF, GLYHGB #### [facility] [employer] [address] [place] [address] 917[address] Switch Foreman: RICHA Mcmanus (Bld) [#/Vol]4.32 10*6/uLNormal3.95-5.11 [place] [facility]S HospitalComment on above:Performed By: #### CDP, CP, LIP, TROPI, LIPRF, GLYHGB #### [facility] [employer] [address] [place] [address] 316[address] Switch Foreman: RICHA Mcmanus morphology finding Nom (Bld)ANISOCYTOSIS PRESENTrmalAk[place] Children'S HospitalComment on above:Performed By: #### CDP, CP, LIP, TROPI, LIPRF, GLYHGB #### [facility] [employer] [address] [place] [address] 8[address]61 Switch Foreman: LUCIAN Mcmanus (Bld) [#/Vol]12.2 10*3/uLHigh3.5-11.3MJohn George Psychiatric PavilionComment on above:Performed By: #### CDP, CP, LIP, TROPI, LIPRF, GLYHGB #### [facility] [employer] [address] [place] [address] 86[address] Switch Foreman: Gustabo Mcmanus PerformedNOT REPORTEDNormalMercy Shc Specialty HospitalComment on above:Performed By: #### CDP, CP, LIP, TROPI, LIPRF, GLYHGB #### [facility] [employer] [address] [place] [address] 67[address] Switch Foreman: Bon Mcmanus (Bld) [#/Vol]NOT REPORTEDNormalMercy Shc Specialty HospitalComment on above:Performed By: #### CDP, CP, LIP, TROPI, LIPRF, GLYHGB #### [facility] [employer] [address] [place] [address] 84165 Switch Foreman: LUCIAN Mcmanus MorphologyNOT REPORTEDNormalAk[place] Children'S HospitalComment on above:Performed By: #### CDP, CP, LIP, TROPI, LIPRF, GLYHGB #### [employer] [address] [place], [place] [phone] Switch Foreman: Brandon Anaya, MDMagnesiumon [id number] [Mass/Vol]2.2 mg/dLNormal1.6-2.6Mer[facility]c Specialty HospitalComment on above:Performed By: #### CDP, CP, LIP, TROPI, LIPRF, GLYHGB #### [facility] [address] [place], [place] [phone] Switch Foreman: Brandon Charlesindy, MDMagnesium [Mass/Vol]2.2 mg/dL1.6 - 2.6 mg/dL [facility], TXPOC Glucose Fingerstickon [id number] [Mass/Vol]117 mg/bREaun93 - 105 mg/dLTrumbull Memorial Hospital, KYInterpretation and review of laboratory resultsAbnoOhioHealth Grady Memorial Hospital, KYGlucose [Mass/Vol]115 mg/iIScxp63 - 105 mg/dLTrumbull Memorial Hospital, KYInterpretation and review of laboratory results AbnormalTrumbull Memorial Hospital, KYGlucose [Mass/Vol]123 mg/aFXkhe74 - 105 mg/dLTrumbull Memorial Hospital, TXInterpretation and review of laboratory resultsAbnoOhioHealth Grady Memorial Hospital, KYGlucose [Mass/Vol]117 mg/jIDyza86 - 105 mg/dLTrumbull Memorial Hospital, [place] Interpretation and review of laboratory resultsAbGuernsey Memorial Hospital, [place] URINALYSIS WITH MICROSCOPICon 04-13-0983Hjlbsfteg, UANOT REPORTEDNoneMeGreen Cross Hospital- [place], KYBacteria, UANOT REPORTEDNoneMeGreen Cross Hospital- [place], KYBilirubin Urine NegativeNEGATIVETrumbull Memorial Hospital, KYCasts UA0 TO 2 HYALINE Reference range defined for non-centrifuged specimen.[facility], KYColor, UAYELLOWYELLOW [facility], KYCrystals, UANOT REPORTEDNone /HPFMercy Health- [place], [place] Epithelial Cells UA2 TO 5[facility]- [place], KYGlucose, UrNegativeNEGATIVEMercy Health- [place], KYInterpretation and review of laboratory resultsAbnormalMercy Health- [place], KYKetones Ql (U)SMALLAbnormalNEGATIVEMercy Health- [place], KYLeukocyte esterase Test strip Ql (U)NegativeNEGATIVEMercy Health- [place], KYMucus, UANOT REPORTEDNoneMercy Health- [place], KYNitrite, UrineNegativeNEGATIVEMercy Health- [place], KYOther Observations UANOT REPORTEDNOT REQ.[facility]- [place], KYpH, UA8.5High [facility]- [place], KYProtein (U) [Mass/Vol]NegativeNEGATIVEMercy Health- [place], [place] RBC (U) [#/Vol]TOO NUMEROUS TO COUNTMercy Health Springfield Regional [facility] Center Health- [place], KYComment on above: Reference range defined for non-centrifuged specimen.Renal Epithelial, UANOT REPORTED0 /HPFMercy Health- [place], KYSpecific [place], UA1.011[facility]- [place], [place] Trichomonas, UANOT REPORTEDNoneMercy Health- [place], KYTurbidity UATURBIDAbnormal CLEARMercy Health- [place], KYUrine HgbNegativeNEGATIVEMercy Health- [place], [place] Urobilinogen, UrineNormalNormalMercy Health- [place], KYWBC, UA0 TO 2[facility]- [place], KYYeast, UANOT REPORTEDNoneMercy Health- [place], [place]-[facility]- [place], [place] Urinalysis w/ Microon 10-12-2019-----NormalAk[place] [facility] Comment on above:Performed By: #### CDP, CP, LIP, TROPI, LIPRF, GLYHGB #### [employer] [address] [place] [address] Switch Foreman: Rafi Mcmanustoacetic Acid,UrSMALLAbnormalNEGAk[place] Children'S HospitalComment on above:Performed By: #### CDP, CP, LIP, TROPI, LIPRF, GLYHGB #### [employer] [address] [place] [address] Switch Foreman: Brandon Anaya MDBilirubin, SemiQt,UrNegativeNormalNEGAk[place] Children'S HospitalComment on above:Performed By: #### CDP, CP, LIP, TROPI, LIPRF, GLYHGB #### [facility] [employer] [address] [place] [address]47 Switch Foreman: NEHAL Mcmanusasts LM.LPF (Urine sed) [#/Area]0 TO 2 HYALINE Normal0-8[place] [facility]'S HospitalComment on above:Result Comment: Reference range defined for non-centrifuged specimen.Performed By: #### CDP, CP, LIP, TROPI, LIPRF, GLYHGB #### [employer] [address] [place] [address] Switch Foreman: NEHAL Mcmanusolor (U)YELLOWNormalYELMerMission Bernal campusComment on above:Performed By: #### CDP, CP, LIP, TROPI, LIPRF, GLYHGB #### [employer] [address] [place] [address] Switch Foreman: Brandon Anaya MDEpithelial cells LM.HPF (Urine sed) [#/Area]2 TO 8Nuaeli1-7FncnvAk[place] Children'S HospitalComment on above:Performed By: #### CDP, CP, LIP, TROPI, LIPRF, GLYHGB #### [employer] [address] [place] [address] Switch Foreman: Brandon Anaya MDGlucose Ql (U)NegativeNormalNEGAk[place] Children'S HospitalComment on above:Performed By: #### CDP, CP, LIP, TROPI, LIPRF, GLYHGB #### [employer] [address] [place] [address] Switch Foreman: Brandon Anaya MDHemoglobin, UrNegativeNormalNEGAk[place] Children'S HospitalComment on above:Performed By: #### CDP, CP, LIP, TROPI, LIPRF, GLYHGB #### [employer] [address] [place] [address] Switch Foreman: Brandon Anaya MDLeukocyte esterase Test strip Ql (U)Negative NormalNEGAk[place] Children'S HospitalComment on above:Performed By: #### CDP, CP, LIP, TROPI, LIPRF, GLYHGB #### [address] [address] Switch Foreman: Jessica Mcmanustrite,UrNegativeNormalNEGAk[place] Children'S HospitalComment on above:Performed By: #### CDP, CP, LIP, TROPI, LIPRF, GLYHGB #### [address] [address] Switch Foreman: Brandon Anaya [facility] HospitalH (U)8.5 [pH]High5.0-8.0[place] [facility]'S HospitalComment on above:Performed By: #### CDP, CP, LIP, TROPI, LIPRF, GLYHGB #### [address] [address] Switch Foreman: Oanh Mcmanus Ql (U)NegativeNormalNEGAk[place] Children'S HospitalComment on above:Performed By: #### CDP, CP, LIP, TROPI, LIPRF, GLYHGB #### [address] [address] Switch Foreman: Brandon Anaya MDRBC (U) [#/Vol]TOO NUMEROUS TO COUNTNormal0-4 [place] [facility]'S HospitalComment on above:Result Comment: Reference range defined for non-centrifuged specimen.Performed By: #### CDP, CP, LIP, TROPI, LIPRF, GLYHGB #### [address] [address] Switch Foreman: FABIANA Mcmanuspecific gravity (U) [Rel density]1.011Normal 1.005-1.030[place] [facility]'S HospitalComment on above:Performed By: #### CDP, CP, LIP, TROPI, LIPRF, GLYHGB #### [facility] [address] [place] [address] Switch Foreman: GODWIN McmanusurbidityTURBIDAbnormalCLEARMJohn George Psychiatric PavilionComment on above:Performed By: #### CDP, CP, LIP, TROPI, LIPRF, GLYHGB #### [facility] [address] [place] [address] Switch Foreman: Jackie Mcmanus,UrNormalNormalNORMAk[place] Children'S HospitalComment on above:Performed By: #### CDP, CP, LIP, TROPI, LIPRF, GLYHGB #### [facility] [employer] [address] [place] [address] Switch Foreman: Brandon Anaya MDWBC (U) [#/Vol]0 TO 3Epqqwk9-0NzeppAk[place] Children'S HospitalComment on above:Performed By: #### CDP, CP, LIP, TROPI, LIPRF, GLYHGB #### [address] [address] Switch Foreman: Iwona Mcmanus sediment LM Ql (Urine sed)NOT REPORTED NormalMartins Ferry HospitalComment on above:Performed By: #### CDP, CP, LIP, TROPI, LIPRF, GLYHGB #### [facility] [address] [place] [address] Switch Foreman: Brandon Anaya MDBamarah LM.HPF (Urine sed) [#/Area]NOT REPORTED NormalMartins Ferry HospitalComment on above:Performed By: #### CDP, CP, LIP, TROPI, LIPRF, GLYHGB #### [facility] [employer] [address] [place] [address] Switch Foreman: Manjula Mcmanusstdamien LM Nom (Urine sed)NOT REPORTEDNormal NONEMerHelena Regional Medical Centerent Medical CenterComment on above:Performed By: #### CDP, CP, LIP, TROPI, LIPRF, GLYHGB #### [facility] [address] [place] [address] Switch Foreman: Brandon Anaay MDEpithelial, RenalNOT OWBEURHRQeyywk7PihhtAk[place] Children'S HospitalComment on above:Performed By: #### CDP, CP, LIP, TROPI, LIPRF, GLYHGB #### [facility] [address] [place] [address] Switch Foreman: Raquel Mcmanusus StrandsNOT REPORTEDrmalNONProMedica Bay Park HospitalComment on above:Performed By: #### CDP, CP, LIP, TROPI, LIPRF, GLYHGB #### [facility] [address] [place] [address] Switch Foreman: Brandon Anaya MDOther ObservationsNOT REPORTEDrmalNREQAk[place] Children'S HospitalComment on above:Performed By: #### CDP, CP, LIP, TROPI, LIPRF, GLYHGB #### [facility] [address] [place] [address] Switch Foreman: Grant McmanushomonasNOT REPORTEDWilson HealthComment on above:Performed By: #### CDP, CP, LIP, TROPI, LIPRF, GLYHGB #### [facility] [address] [place] [address] 11086 Switch Foreman: Donna Mcmanus LM Ql (Urine sed)NOT REPORTEDrmalST. MARY'S HOSPITALE [place] Children'S HospitalComment on above:Performed By: #### CDP, CP, LIP, TROPI, LIPRF, GLYHGB #### [facility] [address] [place] [address] Switch Foreman: CHRISTINE Mcmanus RENAL ARTERIAL DUPLEX COMPLETEon 10-12-2019 [facility] Procedure Patient Name ALEX Date of Study 10/12/2019 SHAYY Date of 1945 Gender Female Age 74 year(s) Race Room Number 2015 Corporate ID [id number] # Patient Acct [id number] # MR # [id number] Solution Spec Celena Juarez RVT, RDMS Interpreting Jamison Galo [...] - The average kidney length is 10.75 cm.[facility] [place], [place], [place] Incoming Cardio Results From [facility]/ - 10/12/2019 7:54 PM EDT [facility] Renal Procedure Patient Name ALEX Date of Study 10/12/2019 SHAYY Date of 1945 Gender Female Age 74 year(s) Race Room Number 2015 Corporate ID [id number] # Patient Acct [id number] # MR # [id number] Solution Spec Celena Juarez RVT, MS Interpreting Jamison Galo [...] - The average kidney length is 10.75 cm.[facility] [place], KYXR CHEST PORTABLEon [id number] CHEST PORTABLEEXAMINATION: ONE XRAY VIEW OF THE [...] by: Argentina Guzmán MD 10/11/19 Final resultNormalMercy Shc Specialty HospitalBasic Metab w/rfx MGon 10-11-2019(cont.)NormalMercy Shc Specialty HospitalComment on above:Result Comment: Average GFR for 70 or more years old: 75 mL/min/1.73sq m Chronic Kidney Disease: <60 mL/min/1.73sq m Kidney failure: <15 mL/min/1.73sq m eGFR calculated using average adult body mass. Additional eGFR calculator available at: http://www.ParkAround.com.Phigital/multiple_crcl_2012.htmPerformed By: #### CDP, CP, LIP, TROPI, LIPRF, GLYHGB #### [facility] [address] [place] [address] Switch Foreman: Brandon Anaya MDAnion gap [Moles/Vol]15 mmol/LNormal9-17[place] [facility]'S HospitalComment on above:Performed By: #### CDP, CP, LIP, TROPI, LIPRF, GLYHGB #### [facility] [address] [place] [address] Switch Foreman: Brandon Anaya MDCalcium [Mass/Vol]9.2 mg/dLNormal8.6-10.4[place] [facility]'S HospitalComment on above:Performed By: #### CDP, CP, LIP, TROPI, LIPRF, GLYHGB #### [facility] [employer] [address] [place] [address] Switch Foreman: Brandon Anaya MDChloride [Moles/Vol]96 mmol/TJer00-857IajbeAk[place] Children'S HospitalComment on above:Performed By: #### CDP, CP, LIP, TROPI, LIPRF, GLYHGB #### [facility] [address] [place] [address] Switch Foreman: Brandon Anaya MDCO2 [Moles/Vol]24 mmol/WLfukmm90-65ZwiihAk[place] Children'S HospitalComment on above:Performed By: #### CDP, CP, LIP, TROPI, LIPRF, GLYHGB #### [facility] [address] [place] [address] Switch Foreman: Brandon Anaya MDCreatinine [Mass/Vol]0.55 mg/dLNormal0.50-0.90 [place] [facility]S HospitalComment on above:Performed By: #### CDP, CP, LIP, TROPI, LIPRF, GLYHGB #### [facility] [employer] [address] [place] [address]56 Switch Foreman: Brandon Madoff, MDGFR, Amer>60Normal>60[facility]c Specialty HospitalComment on above:Performed By: #### CDP, CP, LIP, TROPI, LIPRF, GLYHGB #### [facility] [address] [place] [address] Switch Foreman: Brandon Anaya MDGFR,non Amer>60Normal>60[facility] Specialty HospitalComment on above:Performed By: #### CDP, CP, LIP, TROPI, LIPRF, GLYHGB #### [facility] [address] [place] [address] Switch Foreman: Brandon Anaya MDGlucose [Mass/Vol]146 mg/eXQtvq23-39Mqxou Shc Specialty HospitalComment on above:Performed By: #### CDP, CP, LIP, TROPI, LIPRF, GLYHGB #### [facility] [address] [place] [address] Switch Foreman: BLADIMIR Mcmanusotassium [Moles/Vol]3.6 mmol/LLow3.7-5.3[facility] Specialty HospitalComment on above:Performed By: #### CDP, CP, LIP, TROPI, LIPRF, GLYHGB #### [facility] [employer] [address] [place] [address] Switch Foreman: FABIANA Mcmanusodium [Moles/Vol]135 mmol/XOkkusp894-292QwrmhMission Bernal campusComment on above:Performed By: #### CDP, CP, LIP, TROPI, LIPRF, GLYHGB #### [facility] [address] [place] [address] Switch Foreman: Brandon Anaya MDUrea nitrogen [Mass/Vol]13 mg/dLNormal8-23MerMission Bernal campusComment on above:Performed By: #### CDP, CP, LIP, TROPI, LIPRF, GLYHGB #### [facility] [employer] [address] [place] [address] [phone] Switch Foreman: RADHA Mcmanus/CRE RatioNOT REPORTEDNormal9-20[place] [facility]'S HospitalComment on above:Performed By: #### CDP, CP, LIP, TROPI, LIPRF, GLYHGB #### [facility] [address] [place], [place] [phone] Switch Foreman: FABIANA Mcmanustaging:NOT REPORTEDNormalAk[place] Children'S HospitalComment on above:Performed By: #### CDP, CP, LIP, TROPI, LIPRF, GLYHGB #### [facility] [address], [place] [phone] Switch Foreman: Josh Mcmanus Metabolic Panel w/ Reflex to MGon [id number] gap [Moles/Vol]15 mmol/L9 - 17 mmol/LMsuburban community hospital & [facility]- [place], KYBun/Cre RatioNOT REPORTEDTrumbull Memorial Hospital, KYCalcium [Mass/Vol]9.2 mg/dL8.6 - 10.4 mg/dLHenry County Hospital [place], KYChloride [Moles/Vol]96 mmol/LLow98 - 107 mmol/LMkindred hospital limay [facility]- [place], KYCO2 [Moles/Vol]24 mmol/L20 - 31 mmol/LMkindred hospital limay [facility]- [place], [place] Creatinine [Mass/Vol]0.55 mg/dL0.5 - 0.9 mg/dLTrumbull Memorial Hospital, KYGFR >60>60 mL/minHenry County Hospital [place], KYGFR Non->60>60 mL/min [facility], KYGFR/1.73 sq M predicted among non-blacks MDRD (S/P/Bld) [Vol rate/Area]NOT REPORTEDEast [facility]- [place], KYGFR/1.73 sq M predicted among non- blacks MDRD (S/P/Bld) [Vol rate/Area][facility] PercelloLAFAYETTE [facility], KYComment on above: Average GFR for 70 or more years old: 75 mL/min/1.73sq m Chronic Kidney Disease: <60 mL/min/1.73sq m Kidney failure: <15 mL/min/1.73sq m eGFR calculated using average adult body mass. Additional eGFR calculator available at: http://www.TalentBin/multiple_crcl_2012.htm Glucose [Mass/Vol]146 mg/oRRcxn21 - 99 mg/dLTrumbull Memorial Hospital, KYInterpretation and review of laboratory resultsAbnoGalion Community Hospital- [place], KYPotassium [Moles/Vol]3.6 mmol/LLow3.7 - 5.3 mmol/LMWilson Memorial Hospital- [place], KYSodium [Moles/Vol] 135 mmol/L135 - 144 mmol/LMWilson Memorial Hospital- [place], KYUrea nitrogen [Mass/Vol]13 mg/dL8 - 23 mg/dLTrumbull Memorial Hospital, KYCBC auto differentialon [id number] (Bld) [#/Vol]0.03 10*3/uLHenry County Hospital [place], KYBasophils/100 WBC (Bld)0 %0 - 2 %[facility], KYDifferential TypeNOT REPORTEDTrumbull Memorial Hospital, KYEosinophils (Bld) [#/Vol]10*3/uLHenry County Hospital [place], KYEosinophils/100 WBC (Bld)0 %Low1 - 4 %[facility], KYErythrocyte distribution width (RBC) [Ratio]14.3 %11.8 - 14.4 % [facility], KYHematocrit (Bld) [Volume fraction]43.6 %36.3 - 47.1 %[facility], KYHemoglobin (Bld) [Mass/Vol]13.7 g/dL11.9 - 15.1 g/dLTrumbull Memorial Hospital, KYImmature granulocytes (Bld) [#/Vol]1 %Nchd5RxaiaEast [facility]- [place], KYImmature granulocytes (Bld) [#/Vol]0.07 10*3/uLEast [facility]- [place], KYInterpretation and review of laboratory resultsAbnoParma Community General Hospital [place], KYLymphocytes (Bld) [#/Vol]0.92 10*3/uLLowEast Liverpool City Hospital- [place], KYLymphocytes/100 WBC (Bld)14 %Low24 - 43 %[place], KYMCH (RBC) [Entitic mass]29.1 pg25.2 - 33.5 pgChe[place], KYMCHC (RBC) [Mass/Vol]31.4 g/dL28.4 - 34.8 g/dLChe[place], [place] MCV (RBC) [Entitic vol]92.6 fL82.6 - 102.9 fLChe[place], KYMonocytes (Bld) [#/Vol]0.07 10*3/uLLowTrumbull Memorial Hospital, TXMonocytes/100 WBC (Bld)1 %Low3 - 12 % [place], KYPlatelet mean volume (Bld) [Entitic vol]10.6 fL8.1 - 13.5 fL [place], KYPlatelets (Bld) [#/Vol]NOT REPORTED[place], [place] Platelets (Bld) [#/Vol]196 10*3/uLTrumbull Memorial Hospital, TXRBC (Bld) [#/Vol]4.71 10*6/uL3.95 - 5.11 m/uLTrumbull Memorial Hospital, TXRBC morphology finding Nom (Bld)NOT REPORTED[place], KYSegmented neutrophils/100 WBC (Bld)84 %High36 - 65 % [place], KYSegs Absolute5.67[facility], TXWBC (Bld) [#/Vol]0.0 10*3/uL0.0 per 100 WBCChester, KYWBC (Bld) [#/Vol]6.8 10*3/[facility], TXWBC MorphologyNOT REPORTED[place], KYCBC with Diffon [id number]. Basophil0.03 k/uLNormal0.00-0.20[place] [facility] Comment on above:Performed By: #### CDP, CP, LIP, TROPI, LIPRF, GLYHGB #### [employer] [facility] [place] [address] Switch Foreman: Marie Mcmanus.Imm.Granulocyte0.07 k/uLNormal0.00-0.30[place] [facility]'S HospitalComment on above:Performed By: #### CDP, CP, LIP, TROPI, LIPRF, GLYHGB #### [facility] [employer] [address] [place] [address] Switch Foreman: Marie Mcmanus.Neutrophil (Seg)5.67 k/uLNormal1.50-8.10 [place] [facility]'S HospitalComment on above:Performed By: #### CDP, CP, LIP, TROPI, LIPRF, GLYHGB #### [facility] [employer] [address] [place] [address] Switch Foreman: Brandon Anaya MDBasophils/100 WBC (Bld)0 %Normal0-2MJohn George Psychiatric PavilionComment on above:Performed By: #### CDP, CP, LIP, TROPI, LIPRF, GLYHGB #### [facility] [employer] [address] [place] [address] Switch Foreman: Brandon Anaya MDEosinophils (Bld) [#/Vol]10*3/uLNormal0.00-0.44 [place] [facility]S HospitalComment on above:Performed By: #### CDP, CP, LIP, TROPI, LIPRF, GLYHGB #### [address] [address] Switch Foreman: MAU Mcmanusosinophils/100 WBC (Bld)0 %Low1-4[place] [facility]'S HospitalComment on above:Performed By: #### CDP, CP, LIP, TROPI, LIPRF, GLYHGB #### [facility] [employer] [address] [place] [address] Switch Foreman: Brandon Anaya MDErythrocyte distribution width (RBC) [Ratio]14.3 %Xzjeub10.8-14.4[place] [facility]'S HospitalComment on above:Performed By: #### CDP, CP, LIP, TROPI, LIPRF, GLYHGB #### [facility] [address] [place] [address] Switch Foreman: Brandon Anaya MDHematocrit (Bld) [Volume fraction]43.6 %Normal 36.3-47.1MJohn George Psychiatric PavilionComment on above:Performed By: #### CDP, CP, LIP, TROPI, LIPRF, GLYHGB #### [facility] [address] [place] [address] Switch Foreman: Brandon Anaya MDHemoglobin (Bld) [Mass/Vol]13.7 g/dLNormal 11.9-15.1MJohn George Psychiatric PavilionComment on above:Performed By: #### CDP, CP, LIP, TROPI, LIPRF, GLYHGB #### [facility] [employer] [address] [place] [address] Switch Foreman: Brandon Anaya MDImmature granulocytes (Bld) [#/Vol]1 %Mvmu0ZwdprAk[place] Children'S HospitalComment on above:Performed By: #### CDP, CP, LIP, TROPI, LIPRF, GLYHGB #### [facility] [employer] [address] [place] [address] Switch Foreman: Brandon Anaya MDLymphocytes (Bld) [#/Vol]0.92 10*3/uLLow 1.10-3.70[place] [facility]'S HospitalComment on above:Performed By: #### CDP, CP, LIP, TROPI, LIPRF, GLYHGB #### [facility] [employer] [address] [place] [address] Switch Foreman: Kortney Mcmanusmphocytes/100 WBC (Bld)14 %Lma83-83OqluvAk[place] Children'S HospitalComment on above:Performed By: #### CDP, CP, LIP, TROPI, LIPRF, GLYHGB #### [facility] [employer] [address] [place] [address] Switch Foreman: LIZZY McmanusCH (RBC) [Entitic mass]29.1 luMuhtru85.2-33.5 [place] [facility]'S HospitalComment on above:Performed By: #### CDP, CP, LIP, TROPI, LIPRF, GLYHGB #### [address] [address] Switch Foreman: LIZZY MmcanusCHC (RBC) [Mass/Vol]31.4 g/qNJkneze46.4-34.8 [place] [facility]'S HospitalComment on above:Performed By: #### CDP, CP, LIP, TROPI, LIPRF, GLYHGB #### [address] [address] Switch Foreman: LIZZY McmanusCV (RBC) [Entitic vol]92.6 zKKhgxnp07.6-102.9 [place] [facility]'S HospitalComment on above:Performed By: #### CDP, CP, LIP, TROPI, LIPRF, GLYHGB #### [address] [address] Switch Foreman: LIZZY Mcmanusonocytes (Bld) [#/Vol]0.07 10*3/uLLow0.10-1.20 [place] [facility]'S HospitalComment on above:Performed By: #### CDP, CP, LIP, TROPI, LIPRF, GLYHGB #### [address] [address] Switch Foreman: LIZZY Mcmanusonocytes/100 WBC (Bld)1 %Low3-12[place] [facility]'S HospitalComment on above:Performed By: #### CDP, CP, LIP, TROPI, LIPRF, GLYHGB #### [address] [address] Switch Foreman: Davidson Mcmanusutrophil (Seg)84 %Gxsu43-23IhexlAk[place] Children'S HospitalComment on above:Performed By: #### CDP, CP, LIP, TROPI, LIPRF, GLYHGB #### [facility] [employer] [address] [place] [address] Switch Foreman: JOSIE Mcmanus Automated0.0 per 100 WBCNormal0.0[place] [facility]'S HospitalComment on above:Performed By: #### CDP, CP, LIP, TROPI, LIPRF, GLYHGB #### [facility] [employer] [address] [place] [address] Switch Foreman: Nadeem Mcmanus mean volume (Bld) [Entitic vol]10.6 fL Normal8.1-13.5[place] [facility]'S HospitalComment on above:Performed By: #### CDP, CP, LIP, TROPI, LIPRF, GLYHGB #### [facility] [employer] [address] [place] [address] Switch Foreman: Bon Mcmanus (Bld) [#/Vol]196 10*3/fIVlocqy322-417 [place] [facility]'S HospitalComment on above:Performed By: #### CDP, CP, LIP, TROPI, LIPRF, GLYHGB #### [facility] [employer] [address] [place] [address] Switch Foreman: RICHA Mcmanus (Bld) [#/Vol]4.71 10*6/uLNormal3.95-5.11 [place] [facility]'S HospitalComment on above:Performed By: #### CDP, CP, LIP, TROPI, LIPRF, GLYHGB #### [facility] [employer] [address] [place] [address] Switch Foreman: LUCIAN Mcmanus (Bld) [#/Vol]6.8 10*3/uLNormal3.5-11.3MJohn George Psychiatric PavilionComment on above:Performed By: #### CDP, CP, LIP, TROPI, LIPRF, GLYHGB #### [facility] [address] [place] [address] Switch Foreman: Gustabo Mcmanus Diff PerformedNOT REPORTEDNormalAk[place] Children'S HospitalComment on above:Performed By: #### CDP, CP, LIP, TROPI, LIPRF, GLYHGB #### [facility] [address] [place] [address] Switch Foreman: BLADIMIR Mcmanuslatelets (Bld) [#/Vol]NOT REPORTEDNoSalem Regional Medical CenterComment on above:Performed By: #### CDP, CP, LIP, TROPI, LIPRF, GLYHGB #### [facility] [address] [place] [address] Switch Foreman: RICHA Mcmanus morphology finding Nom (Bld)NOT REPORTED NormalAk[place] Children'S HospitalComment on above:Performed By: #### CDP, CP, LIP, TROPI, LIPRF, GLYHGB #### [facility] [address] [place] [address] Switch Foreman: LUCIAN Mcmanus MorphologyNOT REPORTEDOhioHealth Arthur G.H. Bing, MD, Cancer CenterComment on above:Performed By: #### CDP, CP, LIP, TROPI, LIPRF, GLYHGB #### [facility] [address] [place] [address] Switch Foreman: WENDY Mcmanus BRAIN W WO CONTRASTon [id number] BRAIN W WO CONTRASTEXAMINATION: MRI OF THE [...] Signed by: Chaitanya Sawyer MD 10/11/19 Final resultNormalMerLos Robles Hospital & Medical Center, [facility] Incoming Radiant Results From [employer] - 10/11/2019 3:07 PM EDT EXAMINATION: MRI [...] Small meningioma over the right frontal lobe. [facility]LA[facility], [place] SiliconVolume loss with chronic white matter microvascular ischemic change. Small meningioma over the right frontal lobe.[facility]LAFAYET[facility], [place] EXAMINATION: MRI OF THE BRAIN WITHOUT [...] The soft tissues demonstrate no acute abnormality. [facility], KYPOC Glucose Fingerstickon [id number] [Mass/Vol]121 mg/nTLbyd30 - 105 mg/dLTrumbull Memorial Hospital, KYInterpretation and review of laboratory resultsAbGuernsey Memorial Hospital, KYGlucose [Mass/Vol]171 mg/bKYnku15 - 105 mg/dLTrumbull Memorial Hospital, KYInterpretation and review of laboratory results AbnormalTrumbull Memorial Hospital, KYGlucose [Mass/Vol]127 mg/sYHyzo95 - 105 mg/dLTrumbull Memorial Hospital, KYInterpretation and review of laboratory resultsAbGuernsey Memorial Hospital, KYGlucose [Mass/Vol]145 mg/vFJnga69 - 105 mg/dLTrumbull Memorial Hospital, [place] Interpretation and review of laboratory resultsAbGuernsey Memorial Hospital, KYXR CHEST PORTABLEon [id number]: ONE XRAY VIEW OF THE CHEST 10/11/2019 10:45 pm COMPARISON: 06/27/2017 HISTORY: ORDERINGSYSTEM PROVIDED HISTORY: evaluate TECHNOLOGIST PROVIDED HISTORY: evaluate Reason for Exam: Upright p ortable Acuity: Unknown Type of Exam: Unknown FINDINGS: Cardiomediastinal silhouette is unchanged in size. Aortic atherosclerosis. No pulmonary consolidation, pleural effusion, or pneumothorax. No acute osseous abnormality. [facility] HospitalRadha Mhpn Incoming Radiant Results From [employer] - 10/11/2019 11:49 PM EDT EXAMINATION: ONE XRAY VIEW OF THE CHEST 10/11/2019 10:45 pm COMPARISON: 06/27/2017 HISTORY: ORDERING SYSTEM PROVIDED HISTORY: evaluate TECHNOLOGIST PROVIDED HISTORY: evaluate Reason for Exam: Upright portable Acuity: Unknown Type of Exam: Unknown FINDINGS: Cardiomediastinal silhouette is unchanged in size. Aortic atherosclerosis. No pulmonary consolidation, pleural effusion, or pneumothorax. No acute osseous abnormality. IMPRESSION: No acute cardiopulmonary abnormality. [facility] HospitalSal acute cardiopulmonary abnormality.[facility] Memorial HospitalCLARA Basic Metab w/rfx MGon 10-10-2019(cont.)[facility] Comment on above:Result Comment: Average GFR for 70 or more years old: 75 mL/min/1.73sq m Chronic Kidney Disease: <60 mL/min/1.73sq m Kidney failure: <15 mL/min/1.73sq m eGFR calculated using average adult body mass. Additional eGFR calculator available at: http://www.ParkAround.com.Phigital/multiple_crcl_2012.htmPerformed By: #### CDP, CP, LIP, TROPI, LIPRF, GLYHGB #### [employer] [address] [place] [address] Switch Foreman: James Mcmanus gap [Moles/Vol]10 mmol/LNormal9-17[place] [facility]'S HospitalComment on above:Performed By: #### CDP, CP, LIP, TROPI, LIPRF, GLYHGB #### [employer] [address] [place] [address] Switch Foreman: Brandon Anaya MDCalcium [Mass/Vol]9.0 mg/dLNormal8.6-10.4[place] [facility]'S HospitalComment on above:Performed By: #### CDP, CP, LIP, TROPI, LIPRF, GLYHGB #### [address] [address] Switch Foreman: NEHAL Mcmanushloride [Moles/Vol]97 mmol/SIgv30-362AtfwrAk[place] Children'S HospitalComment on above:Performed By: #### CDP, CP, LIP, TROPI, LIPRF, GLYHGB #### [address] [address] Switch Foreman: Brandon Anaya MDCO2 [Moles/Vol]25 mmol/RUzjpej22-96OnvsgAk[place] Children'S HospitalComment on above:Performed By: #### CDP, CP, LIP, TROPI, LIPRF, GLYHGB #### [place] [address] Switch Foreman: NEHAL Mcmanusreatinine [Mass/Vol]0.50 mg/dLNormal0.50-0.90 [place] [facility]'S HospitalComment on above:Performed By: #### CDP, CP, LIP, TROPI, LIPRF, GLYHGB #### [address] [address] Switch Foreman: Brandon Anaya MDGFR, Amer>60Normal>60[place] [facility]'S HospitalComment on above:Performed By: #### CDP, CP, LIP, TROPI, LIPRF, GLYHGB #### [address] [address] Switch Foreman: Brandon Anaya MDGFR,non Amer>60Normal>60[place] [facility]'S HospitalComment on above:Performed By: #### CDP, CP, LIP, TROPI, LIPRF, GLYHGB #### [address] [address] Switch Foreman: Brandon Anaya MDGlucose [Mass/Vol]123 mg/oFUnuy63-40NlmybJohn George Psychiatric PavilionComment on above:Performed By: #### CDP, CP, LIP, TROPI, LIPRF, GLYHGB #### [facility] [address] [place] [address] Switch Foreman: BLADIMIR Mcmanusotassium [Moles/Vol]3.5 mmol/LLow3.7-5.3MJohn George Psychiatric PavilionComment on above:Performed By: #### CDP, CP, LIP, TROPI, LIPRF, GLYHGB #### [facility] [address] [place] [address] Switch Foreman: FABIANA Mcmanusodium [Moles/Vol]132 mmol/MYhj829-107EogknAk[place] Children'S HospitalComment on above:Performed By: #### CDP, CP, LIP, TROPI, LIPRF, GLYHGB #### [facility] [address] [place] [address] Switch Foreman: Brandon Anaya MDUrea nitrogen [Mass/Vol]14 mg/dLNormal8-23[place] [facility]'S HospitalComment on above:Performed By: #### CDP, CP, LIP, TROPI, LIPRF, GLYHGB #### [facility] [address] [place] [address] Switch Foreman: RADHA cMmanus/CRE UlicesOT REPORTEDNormal9-20[place] [facility]'S HospitalComment on above:Performed By: #### CDP, CP, LIP, TROPI, LIPRF, GLYHGB #### [facility] [address] [place] [address] Switch Foreman: FABIANA Mcmanustaging:NOT REPORTEDNormalAk[place] Children'S HospitalComment on above:Performed By: #### CDP, CP, LIP, TROPI, LIPRF, GLYHGB #### [facility] [address] [place] [address] Switch Foreman: Josh Mcmanus Metabolic Panel w/ Reflex to MGon [id number] gap [Moles/Vol]10 mmol/L9 - 17 mmol/LMMarietta Memorial Hospital, KYBun/Cre RatioNOT REPORTEDMerWyandot Memorial Hospital, KYCalcium [Mass/Vol]9.0 mg/dL8.6 - 10.4 mg/dLTrumbull Memorial Hospital, KYChloride [Moles/Vol]97 mmol/LLow98 - 107 mmol/[facility], KYCO2 [Moles/Vol]25 mmol/L20 - 31 mmol/[facility] [place], [place] Creatinine [Mass/Vol]0.5 mg/dL0.5 - 0.9 mg/dLTrumbull Memorial Hospital, KYGFR >60>60 mL/minTrumbull Memorial Hospital, KYGFR Non->60>60 mL/min [facility], KYGFR/1.73 sq M predicted among non-blacks MDRD (S/P/Bld) [Vol rate/Area][facility], KYComment on above:Average GFR for 70 or more years old: 75 mL/min/1.73sq m Chronic Kidney Disease: <60 mL/min/1.73sq m Kidney failure: <15 mL/min/1.73sq m eGFR calculated using average adult body mass. Additional eGFR calculator available at: http://www.TalentBin/multiple_crcl_2012.htm GFR/1.73 sq M predicted among non-blacks MDRD (S/P/Bld) [Vol rate/Area]NOT REPORTEDTrumbull Memorial Hospital, KYGlucose [Mass/Vol]123 mg/nKVnwm85 - 99 mg/dLTrumbull Memorial Hospital, KYInterpretation and review of laboratory resultsAbnormalTrumbull Memorial Hospital, KYPotassium [Moles/Vol]3.5 mmol/LLow3.7 - 5.3 mmol/[facility], KYSodium [Moles/Vol]132 mmol/ZIea657 - 144 mmol/[facility], KYUrea nitrogen [Mass/Vol]14 mg/dL8 - 23 mg/dLTrumbull Memorial Hospital, KYC-REACTIVE PROTEINon [id number] [Mass/Vol]6.3 mg/LHigh0 - 5 mg/LMercy Health- [place], KYInterpretation and review of laboratory resultsAbnoGalion Community Hospital- [place], KYC-Reactive Protein on [id number] [Mass/Vol]6.3 mg/LHigh0.0-5.0[place] [facility] Comment on above:Performed By: #### CDP, CP, LIP, TROPI, LIPRF, GLYHGB #### [facility] [employer] [address] [phone] Switch Foreman: Brandon Anaya [facility] auto differentialon [id number] (Bld) [#/Vol]0.06 10*3/uLEast [facility]- [place], KYBasophils/100 WBC (Bld)1 %0 - 2 % [facility], KYDifferential TypeNOT REPORTEDHenry County Hospital [place], KYEosinophils (Bld) [#/Vol]0.07 10*3/uLHenry County Hospital [place], KYEosinophils/100 WBC (Bld)1 %1 - 4 %[facility] [place], KYErythrocyte distribution width (RBC) [Ratio]14.5 %High11.8 - 14.4 %[facility] [place], KYHematocrit (Bld) [Volume fraction]42.7 %36.3 - 47.1 %[facility] [place], KYHemoglobin (Bld) [Mass/Vol]13.5 g/dL11.9 - 15.1 g/dLTrumbull Memorial Hospital, KYImmature granulocytes (Bld) [#/Vol]0.05 10*3/uLHenry County Hospital [place], KYImmature granulocytes (Bld) [#/Vol]1 %Ikkh6MwztpEast Liverpool City Hospital- [place], KYInterpretation and review of laboratory resultsAbnoParma Community General Hospital [place], KYLymphocytes (Bld) [#/Vol]1.05 10*3/uLLowEast Liverpool City Hospital- [place], KYLymphocytes/100 WBC (Bld)14 %Low24 - 43 %[facility]- [place], KYMCH (RBC) [Entitic mass]29.8 pg25.2 - 33.5 pgTrumbull Memorial Hospital, TXMCHC (RBC) [Mass/Vol]31.6 g/dL28.4 - 34.8 g/dLTrumbull Memorial Hospital, [place] MCV (RBC) [Entitic vol]94.3 fL82.6 - 102.9 fLTrumbull Memorial Hospital, TXMonocytes (Bld) [#/Vol]0.65 10*3/uLTrumbull Memorial Hospital, KYMonocytes/100 WBC (Bld)9 %3 - 12 %[facility], TXPlatelet mean volume (Bld) [Entitic vol]10.9 fL8.1 - 13.5 fLTrumbull Memorial Hospital, TXPlatelets (Bld) [#/Vol]170 10*3/[facility], TXPlatelets (Bld) [#/Vol]NOT REPORTEDPro[facility]ant [facility] (Bld) [#/Vol]4.53 10*6/uL3.95 - 5.11 m/uLTrumbull Memorial Hospital, [facility] morphology finding Nom (Bld)ANISOCYTOSIS PRESENTTrumbull Memorial Hospital, TXSegmented neutrophils/100 WBC (Bld)74 %High36 - 65 % [facility], TXSegs Absolute5.55[facility], TXWBC (Bld) [#/Vol]0.0 10*3/uL0.0 per 100 WBCTrumbull Memorial Hospital, TXWBC (Bld) [#/Vol]7.4 10*3/uLTrumbull Memorial Hospital, TXWBC MorphologyNOT REPORTEDRegency Hospital Company with Diffon [id number]. Basophil0.06 k/uLNormal0.00-0.20[place] [facility] Comment on above:Performed By: #### CDP, CP, LIP, TROPI, LIPRF, GLYHGB #### [employer] [facility] [place] [address] Switch Foreman: Marie Mcmanus.Imm.Granulocyte0.05 k/uLNormal0.00-0.30[place] [facility]'S HospitalComment on above:Performed By: #### CDP, CP, LIP, TROPI, LIPRF, GLYHGB #### [facility] [employer] [address] [place] [address] Switch Foreman: Mraie Mcmanus.Neutrophil (Seg)5.55 k/uLNormal1.50-8.10 [place] [facility]'S HospitalComment on above:Performed By: #### CDP, CP, LIP, TROPI, LIPRF, GLYHGB #### [address] [address] Switch Foreman: Brandon Anaya MDBasophils/100 WBC (Bld)1 %Normal0-2MJohn George Psychiatric PavilionComment on above:Performed By: #### CDP, CP, LIP, TROPI, LIPRF, GLYHGB #### [address] [address] Switch Foreman: Brandon Anaya MDEosinophils (Bld) [#/Vol]0.07 10*3/uLNormal 0.00-0.44[place] [facility]S HospitalComment on above:Performed By: #### CDP, CP, LIP, TROPI, LIPRF, GLYHGB #### [address] [address] Switch Foreman: Brandon Anaya MDEosinophils/100 WBC (Bld)1 %Normal1-4[place] [facility]S HospitalComment on above:Performed By: #### CDP, CP, LIP, TROPI, LIPRF, GLYHGB #### [facility] [employer] [address] [place] [phone] Switch Foreman: Brandon Anaya MDErythrocyte distribution width (RBC) [Ratio]14.5 %High11.8-14.4[place] [facility]'S HospitalComment on above:Performed By: #### CDP, CP, LIP, TROPI, LIPRF, GLYHGB #### [facility] [employer] [address] [place] [address] Switch Foreman: Brandon Anaya MDHematocrit (Bld) [Volume fraction]42.7 %Normal 36.3-47.1MJohn George Psychiatric PavilionComment on above:Performed By: #### CDP, CP, LIP, TROPI, LIPRF, GLYHGB #### [address] [address] Switch Foreman: Brandon Anaya MDHemoglobin (Bld) [Mass/Vol]13.5 g/dLNormal 11.9-15.1MJohn George Psychiatric PavilionComment on above:Performed By: #### CDP, CP, LIP, TROPI, LIPRF, GLYHGB #### [place] [address] Switch Foreman: Brandon Anaya MDImmature granulocytes (Bld) [#/Vol]1 %Wphk4ItaqlAk[place] Children'S HospitalComment on above:Performed By: #### CDP, CP, LIP, TROPI, LIPRF, GLYHGB #### [place] [address] Switch Foreman: Kortney Mcmanusmphocytes (Bld) [#/Vol]1.05 10*3/uLLow 1.10-3.70[place] [facility]'S HospitalComment on above:Performed By: #### CDP, CP, LIP, TROPI, LIPRF, GLYHGB #### [place] [address] Switch Foreman: Kortney Mcmanusmphocytes/100 WBC (Bld)14 %Fnq74-82KxwvqAk[place] Children'S HospitalComment on above:Performed By: #### CDP, CP, LIP, TROPI, LIPRF, GLYHGB #### [address] [address] Switch Foreman: LIZZY McmanusCH (RBC) [Entitic mass]29.8 xmCunxeg33.2-33.5 [place] [facility]'S HospitalComment on above:Performed By: #### CDP, CP, LIP, TROPI, LIPRF, GLYHGB #### [facility] [employer] [address] [place] [address] Switch Foreman: LIZZY McmanusCHC (RBC) [Mass/Vol]31.6 g/bJMquzbz73.4-34.8 [place] [facility]'S HospitalComment on above:Performed By: #### CDP, CP, LIP, TROPI, LIPRF, GLYHGB #### [facility] [employer] [address] [place] [address] Switch Foreman: LIZZY McmanusCV (RBC) [Entitic vol]94.3 pRTzvifh86.6-102.9 [place] [facility]S HospitalComment on above:Performed By: #### CDP, CP, LIP, TROPI, LIPRF, GLYHGB #### [facility] [employer] [address] [place] [address] Switch Foreman: LIZZY Mcmanusonocytes (Bld) [#/Vol]0.65 10*3/uLNormal 0.10-1.20[place] [facility]S HospitalComment on above:Performed By: #### CDP, CP, LIP, TROPI, LIPRF, GLYHGB #### [facility] [employer] [address] [place] [address] Switch Foreman: LIZZY Mcmanusonocytes/100 WBC (Bld)9 %Normal3-12[place] [facility]'S HospitalComment on above:Performed By: #### CDP, CP, LIP, TROPI, LIPRF, GLYHGB #### [facility] [employer] [address] [place] [address] Switch Foreman: Brandon Anaya MDNeutrophil (Seg)74 %Zghz22-19JuxrhAk[place] Children'S HospitalComment on above:Performed By: #### CDP, CP, LIP, TROPI, LIPRF, GLYHGB #### [address] [address] Switch Foreman: JOSIE Mcmanus Automated0.0 per 100 WBCNormal0.0[place] [facility]'S HospitalComment on above:Performed By: #### CDP, CP, LIP, TROPI, LIPRF, GLYHGB #### [address] [address] Switch Foreman: Nadeem Mcmanus mean volume (Bld) [Entitic vol]10.9 fL Normal8.1-13.5[place] [facility]'S HospitalComment on above:Performed By: #### CDP, CP, LIP, TROPI, LIPRF, GLYHGB #### [address] [address] Switch Foreman: Geremias Mcmanustemariluz (Bld) [#/Vol]170 10*3/cFIycmdp436-995 [place] [facility]'S HospitalComment on above:Performed By: #### CDP, CP, LIP, TROPI, LIPRF, GLYHGB #### [address] [address] [employer] Foreman: DREW McmanusBC (Bld) [#/Vol]4.53 10*6/uLNormal3.95-5.11 [facility] HospitalComment on above:Performed By: #### CDP, CP, LIP, TROPI, LIPRF, GLYHGB #### [address] [address] [employer] Foreman: RICHA Mcmanus morphology finding Nom (Bld)ANISOCYTOSIS PRESENTNormalAkron Children'S HospitalComment on above:Performed By: #### CDP, CP, LIP, TROPI, LIPRF, GLYHGB #### [address] [address] [employer] Foreman: LUCIAN Mcmanus (Bld) [#/Vol]7.4 10*3/uLNormal3.5-11.3[facility] HospitalComment on above:Performed By: #### CDP, CP, LIP, TROPI, LIPRF, GLYHGB #### [facility] [address] [place] [address] Switch Foreman: Gustabo Mcmanus PerformedNOT REPORTEDOhioHealth Arthur G.H. Bing, MD, Cancer CenterComment on above:Performed By: #### CDP, CP, LIP, TROPI, LIPRF, GLYHGB #### [facility] [address] [place] [address] Switch Foreman: Bon Mcmanus (Adalberto) [#/Vol]NOT REPORTEDOhioHealth Arthur G.H. Bing, MD, Cancer CenterComment on above:Performed By: #### CDP, CP, LIP, TROPI, LIPRF, GLYHGB #### [facility] [employer] [address] [place] [address] Switch Foreman: LUCAIN Mcmanus MorphologyNOT REPORTEDOhioHealth Arthur G.H. Bing, MD, Cancer CenterComment on above:Performed By: #### CDP, CP, LIP, TROPI, LIPRF, GLYHGB #### [facility] [address] [place] [address] Switch Foreman: Brandon Anaya MDCT HEAD WO CONTRASTon 03-54-0526IO HEAD WO CONTRASTEXAMINATION: CT OF THE HEAD [...] Signed by: Naga Browning MD 10/10/19 Final resultNormalAk[place] Children'S Hospital1. No acute intracranial abnormality. 2. Mild chronic white matter microvascular ischemic changes.[facility], CLARAEXAMINATION: CT OF THE HEAD WITHOUT [...] abnormality of the visualized skull or soft tissues.[facility] HospitalRadha Mhpn Incoming Radiant Results From Twit[employer]/Turn - 10/10/2019 5:31 PM EDT EXAMINATION: CT [...] Mild chronic white matter microvascular ischemic changes. [facility], KYCTA HEAD NECK W CONTRASTon [id number] HEAD NECK W CONTRASTEXAMINATION: CTA OF THE [...] Initial FINDINGS: CTA NECK: AORTIC ARCH/ARCH VESSELS: Yook-jb-spvkynle atherosclerotic plaque at the arch arch and [...] by: Naga Browning MD 10/10/19 Final resultNormalMercy Shc Specialty HospitalEXAMINATION: CTA OF THE HEAD AND NECK [...] Initial FINDINGS: CTA NECK: AORTIC ARCH/ARCH VESSELS: Brvc-mb-wsogwuky atherosclerotic plaque at the arch arch and [...] fluid collection. The salmeron-white differentiation is maintained. [facility], KY1. No acute arterial abnormality or hemodynamically significant arterial stenosis in the head or neck. 2. No intracranial aneurysm. [facility], KYEdi, Mhpn Incoming Radiant Results From [employer] - 10/10/2019 5:36 PM EDT EXAMINATION: CTA [...] Initial FINDINGS: CTA NECK: AORTIC ARCH/ARCH VESSELS: Kyzy-cv-npmyukap atherosclerotic plaque at the arch arch and [...] head or neck. 2. No intracranial aneurysm. [place], KYHemoglobin A1Con 58-69-4480MdX1k (Bld) [Mass fraction]111 mg/dLNormalAkron Children'S HospitalComment on above:Result Comment: The ADA and AACC recommend providing the estimated average glucose result to permit better patient understanding of their HBA1c result.Performed By: #### CDP, CP, LIP, TROPI, LIPRF, GLYHGB #### [employer] [address] [place] [address] [phone] Switch Foreman: Brandon Anaya MDHbA1c (Bld) [Mass fraction]5.5 %Normal4.0-6.0 [place] Children'S HospitalComment on above:Performed By: #### CDP, CP, LIP, TROPI, LIPRF, GLYHGB #### [employer] [address] [place] [address] Switch Foreman: Brandon Anaya MDGlucose [Mass/Vol]111 mg/dLTrumbull Memorial Hospital, [place] Comment on above:The ADA and AACC recommend providing the estimated average glucose result to permit better patient understanding of their HBA1c result. HbA1c (Bld) [Mass fraction]5.5 %4 - 6 %[facility], KYLACTIC ACID, WHOLE BLOODon [id number] Acid, Whole Blood1.0 mmol/L0.7 - 2.1 mmol/LMMarietta Memorial Hospital, KYLactic Acid,Whole Blon 12-14-4512Xtsuyn Acid,Whole Bl1.0 mmol/L Normal0.7-2.1MJohn George Psychiatric PavilionComment on above:Performed By: #### CDP, CP, LIP, TROPI, LIPRF, GLYHGB #### [employer] [address] [place], [place] [phone] Switch Foreman: Omar Mcmanus [id number] [Mass/Vol]2.1 mg/dLNormal1.6-2.6[facility]c Specialty HospitalComment on above:Performed By: #### CDP, CP, LIP, TROPI, LIPRF, GLYHGB #### [employer] [address] [place] [address] Switch Foreman: Brandon Anaya MDMagnesium [Mass/Vol]2.1 mg/dL1.6 - 2.6 mg/dL [facility], KYOtheron . Subtle sclerosis subjacent to the L2 and L3 superior endplates is age-indeterminate and could represent trabecular condensation associated with acute or subacute endplate fractures. MRI of the lumbar spine is recommended for further evaluation. 2. No acute osseous abnormality of the sacrum or coccyx. 3. Osteopenia.[facility] HospitalRadha Mhpn Incoming Radiant Results From TwitChat/Turn - 10/10/2019 8:19 PM EDT EXAMINATION: THREE [...] of the sacrum or coccyx. 3. Osteopenia. [facility] HospitalCLARAEXAMINATION: THREE XRAY VIEWS OF THE SACRUM/COCCYX; [...] in the urinary bladder. Atherosclerotic calcifications are present.[facility] Glucose Fingerstickon 76-65-5926Dgaampv [Mass/Vol]159 mg/wJNkel45 - 105 mg/dLTrumbull Memorial Hospital, [place] Interpretation and review of laboratory resultsAbEastland, [place] Glucose [Mass/Vol]186 mg/oORnvo15 - 105 mg/dLTrumbull Memorial Hospital, TXInterpretation and review of laboratory resultsAbEastland, KYGlucose [Mass/Vol] 135 mg/hSZfyv28 - 105 mg/dLTrumbull Memorial Hospital, TXInterpretation and review of laboratory resultsAbEastland, KYProcalcitoninon 10-10-2019 Procalcitonin0.15 ng/mLHigh<0.09[place] Children'S HospitalComment on above:Result Comment: Suspected Sepsis: <0.50 [...] entered into the Change in Procalcitonin Calculator (www.xzkmad-dey-tmcdpdfjpv.Phigital) to determine the patient's Mortality Risk Prognosis In healthy neonates, plasma Procalcitonin (PCT) concentrations increase gradually after , reaching peak values at about 24 hours of age then decrease to normal values below 0.5 ng/mL by 48-72 hours of age.Performed By: #### CDP, CP, LIP, TROPI, LIPRF, GLYHGB #### [employer] [facility] [place], [place] [phone] Switch Foreman: Brandon Anaya MDInterpretation and review of laboratory results AbnormalChe[place], KYProcalcitonin0.15 ng/mLHigh<0.09[place], [place] Comment on above: Suspected Sepsis: <0.50 [...] entered into the Change in Procalcitonin Calculator (www.blwhul-wpw-egoqjdpkvi.Phigital) to determine the patient's Mortality Risk Prognosis In healthy neonates, plasma Procalcitonin (PCT) concentrations increase gradually after , reaching peak values at about 24 hours of age then decrease to normal values below 0.5 ng/mL by 48-72 hours of age. Sedimentation Rateon 02-14-7779Jpsetntxqzxeb Rate8 mmNormal0-30[place] Children'S HospitalComment on above:Performed By: #### CDP, CP, LIP, TROPI, LIPRF, GLYHGB #### [employer] [address] [place], [place] [phone] Switch Foreman: FABIANA Mcmanused Rate8 mm0 - 30 mmTrumbull Memorial Hospital, KYTS w/reflex to FT4on [id number] Qn1.05 m[IU]/LNormal0.30-5.00[place] Children'S HospitalComment on above:Performed By: #### CDP, CP, LIP, TROPI, LIPRF, GLYHGB #### [employer] [facility] [place] [address] Switch Foreman: Brandon Anaya MDMULTICARE HEALTH with Reflexon [id number] Qn1.05 m[IU]/L [facility], KYXR LUMBAR SPINE (2-3 VIEWS)on 13-12-6334BD LUMBAR SPINE (2-3 VIEWS)EXAMINATION: THREE XRAY VIEWS [...] Signed by: Naga Browning MD 10/10/19 Final resultNormalAkron Children'S HospitalXR SACRUM COCCYX (MIN 2 VIEWS) on 05-07-3406CK SACRUM COCCYX (MIN 2 VIEWS)EXAMINATION: THREE XRAY [...] Signed by: Naga Browning MD 10/10/19 Final resultNormalAk[place] Children'S HospitalBeta Hydroxybutyrateon 08-08-1137Nasa Hydroxybutyrate0.09 mmol/LNormal0.02-0.27[place] Children'S HospitalComment on above:Performed By: #### ARI, #### [employer] [address] [place] [address] Switch Foreman: Brandon Anaya MDBeta-Hydroxybutyrateon 10-09-2019 Beta-Hydroxybutyrate0.09 mmol/L0.02 - 0.27 mmol/LMMarietta Memorial Hospital, KYCBC WITH AUTO DIFFERENTIALon 24-92-9057Tbsrdiehw (Bld) [#/Vol]0.03 10*3/[facility], KYBasophils/100 WBC (Bld)0 %0 - 2 %[facility], KYDifferential TypeNOT REPORTEDTrumbull Memorial Hospital, KYEosinophils (Bld) [#/Vol]10*3/[facility], [place] Eosinophils/100 WBC (Bld)0 %Low1 - 4 %[place], KYErythrocyte distribution width (RBC) [Ratio]14.2 %11.8 - 14.4 %[place], [place] Hematocrit (Bld) [Volume fraction]44.6 %36.3 - 47.1 %[place], [place] Hemoglobin (Bld) [Mass/Vol]14.2 g/dL11.9 - 15.1 g/dLChe[place], KYImmature granulocytes (Bld) [#/Vol]1 %Kkbe2YwwcpTrumbull Memorial Hospital, CLARAImmature granulocytes (Bld) [#/Vol]0.06 10*3/uLTrumbull Memorial Hospital, CLARAInterpretation and review of laboratory resultsAbnormalTrumbull Memorial Hospital, CLARALymphocytes (Bld) [#/Vol]0.97 10*3/uLLowTrumbull Memorial Hospital, CLARALymphocytes/100 WBC (Bld)13 %Low24 - 43 %[facility] CLARAMCH (RBC) [Entitic mass]29.7 pg25.2 - 33.5 pgChe[place], [place] MCHC (RBC) [Mass/Vol]31.8 g/dL28.4 - 34.8 g/dLMorrow County Hospital CLARAMCV (RBC) [Entitic vol]93.3 fL82.6 - 102.9 fLTrumbull Memorial Hospital, CLARAMonocytes (Bld) [#/Vol] 0.52 10*3/[facility], CLARAMonocytes/100 WBC (Bld)7 %3 - 12 %[facility] CLARAPlatelet mean volume (Bld) [Entitic vol]10.9 fL8.1 - 13.5 fLTrumbull Memorial Hospital, KYPlatelets (Bld) [#/Vol]NOT REPORTEDTrumbull Memorial Hospital, CLARAPlatelets (Bld) [#/Vol]202 10*3/[facility], CLARARBC (Bld) [#/Vol]4.78 10*6/uL3.95 - 5.11 m/[facility], TXRBC morphology finding Nom (Bld)NOT REPORTEDTrumbull Memorial Hospital, TXSegmented neutrophils/100 WBC (Bld)79 %High36 - 65 %[place], KYSe Absolute6.10[facility] (Bld) [#/Vol]0.0 10*3/uL0.0 per 100 WBCUniversity Hospitals Geneva Medical Center (Bld) [#/Vol]7.7 10*3/uLTrumbull Memorial Hospital, [facility]PITALBC MorphologyNOT REPORTED[place], KYCB with Diffon [id number]. Basophil0.03 k/uLNormal0.00-0.20[place] Children'S HospitalComment on above:Performed By: #### CDP, CP, LIP, TROPI, LIPRF, GLYHGB #### [facility] [employer] [address] [place] [address] Switch Foreman: Marie Mcmanus.Imm.Granulocyte0.06 k/uLNormal0.00-0.30[place] Children'S HospitalComment on above:Performed By: #### CDP, CP, LIP, TROPI, LIPRF, GLYHGB #### [facility] [address] [place] [address] Switch Foreman: Marie Mcmanus.Neutrophil (Seg)6.10 k/uLNormal1.50-8.10 [place] [facility]'S HospitalComment on above:Performed By: #### CDP, CP, LIP, TROPI, LIPRF, GLYHGB #### [facility] [employer] [address] [place] [address] Switch Foreman: Brandon Anaya MDBasophils/100 WBC (Bld)0 %Normal0-2MercRonald Reagan UCLA Medical CenterComment on above:Performed By: #### CDP, CP, LIP, TROPI, LIPRF, GLYHGB #### [facility] [employer] [address] [place] [address] Switch Foreman: Brandon Anaya MDEosinophils (Bld) [#/Vol]10*3/uLNormal0.00-0.44 [place] [facility]'S HospitalComment on above:Performed By: #### CDP, CP, LIP, TROPI, LIPRF, GLYHGB #### [place] [address] Switch Foreman: Brandon Anaya MDEosinophils/100 WBC (Bld)0 %Low1-4[place] Children'S HospitalComment on above:Performed By: #### CDP, CP, LIP, TROPI, LIPRF, GLYHGB #### [place] [address] Switch Foreman: Brandon Anaya MDErythrocyte distribution width (RBC) [Ratio]14.2 %Qzvvqj69.8-14.4[place] Children'S HospitalComment on above:Performed By: #### CDP, CP, LIP, TROPI, LIPRF, GLYHGB #### [place] [address] Switch Foreman: Brandon Anaya MDHematocrit (Bld) [Volume fraction]44.6 %Normal 36.3-47.1MJohn George Psychiatric PavilionComment on above:Performed By: #### CDP, CP, LIP, TROPI, LIPRF, GLYHGB #### [place] [address] Switch Foreman: Brandon Anaya MDHemoglobin (Bld) [Mass/Vol]14.2 g/dLNormal 11.9-15.1MJohn George Psychiatric PavilionComment on above:Performed By: #### CDP, CP, LIP, TROPI, LIPRF, GLYHGB #### [place] [address] Switch Foreman: Brandon Anaya MDImmature granulocytes (Bld) [#/Vol]1 %Gahf8QyzsdAk[place] Children'S HospitalComment on above:Performed By: #### CDP, CP, LIP, TROPI, LIPRF, GLYHGB #### [facility] [address] [place] [address] Switch Foreman: Brandon Anaya MDLymphocytes (Bld) [#/Vol]0.97 10*3/uLLow 1.10-3.70[place] Children'S HospitalComment on above:Performed By: #### CDP, CP, LIP, TROPI, LIPRF, GLYHGB #### [address] [address] Switch Foreman: Kortney Mcmanusmphocytes/100 WBC (Bld)13 %Puh60-69HsgcvAk[place] Children'S HospitalComment on above:Performed By: #### CDP, CP, LIP, TROPI, LIPRF, GLYHGB #### [address] [address] Switch Foreman: LIZZY McmanusCH (RBC) [Entitic mass]29.7 kmZbwnhj72.2-33.5 [place] [facility]'S HospitalComment on above:Performed By: #### CDP, CP, LIP, TROPI, LIPRF, GLYHGB #### [address] [address] Switch Foreman: STEFFANIE McmanusC (RBC) [Mass/Vol]31.8 g/wYJqzilr22.4-34.8 [place] [facility]'S HospitalComment on above:Performed By: #### CDP, CP, LIP, TROPI, LIPRF, GLYHGB #### [facility] [employer] [address] [place] [address] Switch Foreman: LIZZY McmanusCV (RBC) [Entitic vol]93.3 zBGvlcem18.6-102.9 [place] [facility]'S HospitalComment on above:Performed By: #### CDP, CP, LIP, TROPI, LIPRF, GLYHGB #### [facility] [employer] [address] [place] [address] Switch Foreman: LIZZY Mcmanusonocytes (Bld) [#/Vol]0.52 10*3/uLNormal 0.10-1.20[place] [facility]'S HospitalComment on above:Performed By: #### CDP, CP, LIP, TROPI, LIPRF, GLYHGB #### [address] [address] Switch Foreman: LIZZY Mcmanusonocytes/100 WBC (Bld)7 %Normal3-12[place] Children'S HospitalComment on above:Performed By: #### CDP, CP, LIP, TROPI, LIPRF, GLYHGB #### [place] [address] Switch Foreman: Modesta Mcmanusophil (Seg)79 %Tgrk17-78AwvxyAk[place] Children'S HospitalComment on above:Performed By: #### CDP, CP, LIP, TROPI, LIPRF, GLYHGB #### [place] [address] Switch Foreman: Brandon Anaya MDNRBC Automated0.0 per 100 WBCNormal0.0[place] Children'S HospitalComment on above:Performed By: #### CDP, CP, LIP, TROPI, LIPRF, GLYHGB #### [address] [address] Switch Foreman: Nadeem Mcmanus mean volume (Bld) [Entitic vol]10.9 fL Normal8.1-13.5[place] Children'S HospitalComment on above:Performed By: #### CDP, CP, LIP, TROPI, LIPRF, GLYHGB #### [address] [address] Switch Foreman: Geremias Mcmanustelets (Bld) [#/Vol]202 10*3/lEKoxjlt455-543 [place] [facility]'S HospitalComment on above:Performed By: #### CDP, CP, LIP, TROPI, LIPRF, GLYHGB #### [facility] [address] [place] [address] Switch Foreman: RICHA Mcmanus (Bld) [#/Vol]4.78 10*6/uLNormal3.95-5.11 [place] [facility]'S HospitalComment on above:Performed By: #### CDP, CP, LIP, TROPI, LIPRF, GLYHGB #### [facility] [address] [place] [address] Switch Foreman: LUCIAN Mcmanus (Bld) [#/Vol]7.7 10*3/uLNormal3.5-11.3MJohn George Psychiatric PavilionComment on above:Performed By: #### CDP, CP, LIP, TROPI, LIPRF, GLYHGB #### [address] [address] Switch Foreman: Gustabo Mcmanus Diff PerformedNOT REPORTEDNormalAk[place] Children'S HospitalComment on above:Performed By: #### CDP, CP, LIP, TROPI, LIPRF, GLYHGB #### [facility] [employer] [address] [place] [address] Switch Foreman: BLADIMIR Mcmanuslatelets (Bld) [#/Vol]NOT REPORTEDNormalAk[place] Children'S HospitalComment on above:Performed By: #### CDP, CP, LIP, TROPI, LIPRF, GLYHGB #### [facility] [address] [place] [address] Switch Foreman: RICHA Mcmanus morphology finding Nom (Bld)NOT REPORTED NormalAk[place] Children'S HospitalComment on above:Performed By: #### CDP, CP, LIP, TROPI, LIPRF, GLYHGB #### [facility] [address] [place] [address] Switch Foreman: LUCIAN Mcmanus MorphologyNOT REPORTEDNormalAk[place] Children'S HospitalComment on above:Performed By: #### CDP, CP, LIP, TROPI, LIPRF, GLYHGB #### [facility] [address] [place] [address] Switch Foreman: Brandon Anaya MDCOVID-19, PCRon [id number]-CoV-2MercHCA [facility] Hospital, FYMXPV-UfT-7, PCRTrumbull Memorial Hospital, DXLLIL-EoY-7, RapidNot Detected Not DetectedTrumbull Memorial Hospital, KYComment on above: Rapid NAAT: The [...] management decisions. Fact sheet for Healthcare Providers: https://www.fda.gov/media/855560/download Fact sheet for Patients: https://www.fda.gov/media/812798/download Methodology: Isothermal Nucleic Acid Amplification Source.NASOPHARYNGEAL SWABTrumbull Memorial Hospital, KYCT CHEST PULMONARY EMBOLISM W CONTRASTon 34-08-0104SM CHEST PULMONARY EMBOLISM W CONTRASTEXAMINATION: CTA OF [...] Signed by: Forrest Darby MD 10/09/19 Final resultNormalMerMission Bernal campusNo central or segmental pulmonary embolus. No acute pulmonary process. Emphysema.[facility], CLARA EXAMINATION: CTA OF THE CHEST [...] No focal consolidation. Bones: Thoracic spine degenerative changes.[facility], Radha, papo Incoming Radiant Results From TwitChat/Turn - 10/09/2019 8:31 AM EDT EXAMINATION: CTA [...] pulmonary embolus. No acute pulmonary process. Emphysema. [facility] Metabolic Profon 10-09-2019(cont.)NormalAk[place] Children'S HospitalComment on above:Result Comment: Average GFR for 70 or more years old: 75 mL/min/1.73sq m Chronic Kidney Disease: <60 mL/min/1.73sq m Kidney failure: <15 mL/min/1.73sq m eGFR calculated using average adult body mass. Additional eGFR calculator available at: http://www.TalentBin/multiple_crcl_2012.htmPerformed By: #### CDP, CP, LIP, TROPI, LIPRF, GLYHGB #### [employer] [address] [place] [address] Switch Foreman: Brandon Anaya MDAlbumin [Mass/Vol]4.1 g/dLNormal3.5-5.2MJohn George Psychiatric PavilionComment on above:Performed By: #### CDP, CP, LIP, TROPI, LIPRF, GLYHGB #### [employer] [address] [place] [address] Switch Foreman: Brandon Anaya MDAlbumin/Globulin [Mass ratio]1.6 {ratio}Normal 1.0-2.5[place] Children'S HospitalComment on above:Performed By: #### CDP, CP, LIP, TROPI, LIPRF, GLYHGB #### [facility] [employer] [address] [place] [address] Switch Foreman: Kristopher Mcmanusline Phos90 U/MQdtpmg80-372ZjrdtAk[place] Children'S HospitalComment on above:Performed By: #### CDP, CP, LIP, TROPI, LIPRF, GLYHGB #### [facility] [address] [place] [address] Switch Foreman: Brandon Anaya MDALT [Catalytic activity/Vol]15 U/LNormal5-33 [place] [facility]'S HospitalComment on above:Performed By: #### CDP, CP, LIP, TROPI, LIPRF, GLYHGB #### [facility] [address] [place] [address] Switch Foreman: James Mcmanus gap [Moles/Vol]18 mmol/LHigh9-17[place] Children'S HospitalComment on above:Performed By: #### CDP, CP, LIP, TROPI, LIPRF, GLYHGB #### [address] [address] Switch Foreman: Brandon Anaya MDAST [Catalytic activity/Vol]11 U/LNormal<32[place] Children'S HospitalComment on above:Performed By: #### CDP, CP, LIP, TROPI, LIPRF, GLYHGB #### [facility] [employer] [address] [place] [address] Switch Foreman: Brandon Anaya MDBilirubin Ql (U)0.39 mg/dLNormal0.3-1.2MJohn George Psychiatric PavilionComment on above:Performed By: #### CDP, CP, LIP, TROPI, LIPRF, GLYHGB #### [facility] [employer] [address] [place] [address] Switch Foreman: Brandon Anaya MDCalcium [Mass/Vol]9.5 mg/dLNormal8.6-10.4[place] Children'S HospitalComment on above:Performed By: #### CDP, CP, LIP, TROPI, LIPRF, GLYHGB #### [facility] [employer] [address] [place] [address] [phone] Switch Foreman: NEHAL Mcmanushloride [Moles/Vol]99 mmol/FVapqdc06-767FbrjzAk[place] Children'S HospitalComment on above:Performed By: #### CDP, CP, LIP, TROPI, LIPRF, GLYHGB #### [employer] [address] [place] [address] Switch Foreman: Brandon Anaya MDCO2 [Moles/Vol]24 mmol/CRixnip14-59PralkAk[place] Children'S HospitalComment on above:Performed By: #### CDP, CP, LIP, TROPI, LIPRF, GLYHGB #### [facility] [employer] [address] [place] [address] Switch Foreman: NEHAL Mcmanusreatinine [Mass/Vol]0.63 mg/dLNormal0.50-0.90 [place] [facility]'S HospitalComment on above:Performed By: #### CDP, CP, LIP, TROPI, LIPRF, GLYHGB #### [facility] [employer] [address] [place] [address] Switch Foreman: Brandon Anaya MDGFR, Amer>60Normal>60[place] Children'S HospitalComment on above:Performed By: #### CDP, CP, LIP, TROPI, LIPRF, GLYHGB #### [facility] [employer] [address] [place] [address] Switch Foreman: Brandon Anaya MDGFR,non Amer>60Normal>60[place] Children'S HospitalComment on above:Performed By: #### CDP, CP, LIP, TROPI, LIPRF, GLYHGB #### [facility] [employer] [address] [place] [address] Switch Foreman: Brandon Anaya MDGlucose [Mass/Vol]208 mg/lIHzkg72-88CfqssJohn George Psychiatric PavilionComment on above:Performed By: #### CDP, CP, LIP, TROPI, LIPRF, GLYHGB #### [employer] [address] [place] [address] Switch Foreman: Brandon Anaya MDPotassium [Moles/Vol]3.9 mmol/LNormal3.7-5.3 [place] [facility]'S HospitalComment on above:Performed By: #### CDP, CP, LIP, TROPI, LIPRF, GLYHGB #### [facility] [address] [place] [address] Switch Foreman: Brandon Anaya MDProtein [Mass/Vol]6.6 g/dLNormal6.4-8.3MJohn George Psychiatric PavilionComment on above:Performed By: #### CDP, CP, LIP, TROPI, LIPRF, GLYHGB #### [facility] [address] [place] [address] Switch Foreman: FABIANA Mcmaunsodium [Moles/Vol]141 mmol/KHcdppd145-932YltjaAk[place] Children'S HospitalComment on above:Performed By: #### CDP, CP, LIP, TROPI, LIPRF, GLYHGB #### [facility] [address] [place] [address] Switch Foreman: Brandon Anaya MDUrea nitrogen [Mass/Vol]17 mg/dLNormal8-23[place] [facility]'S HospitalComment on above:Performed By: #### CDP, CP, LIP, TROPI, LIPRF, GLYHGB #### [facility] [address] [place] [address] Switch Foreman: BAUDILIO McmanusN/CRE RatioNOT REPORTEDNormal9-20[place] [facility]'S HospitalComment on above:Performed By: #### CDP, CP, LIP, TROPI, LIPRF, GLYHGB #### [facility] [address] [place] [address] Switch Foreman: FABIANA Mcmanustaging:NOT REPORTEDNormalAk[place] Children'S HospitalComment on above:Performed By: #### CDP, CP, LIP, TROPI, LIPRF, GLYHGB #### [employer] [address] [place] [address] Switch Foreman: Brandon Anaya [facility] Hospitalensive Metabolic Panelon 10-09-2019 Albumin [Mass/Vol]4.1 g/dL3.5 - 5.2 g/dLTrumbull Memorial Hospital, KYAlbumin/Globulin [Mass ratio]1.6 {ratio}[facility], KYALP [Catalytic activity/Vol]90 U/L35 - 104 U/LMKindred Hospital Dayton [place], KYALT [Catalytic activity/Vol]15 U/L5 - 33 U/[facility] [place], KYAnion gap [Moles/Vol]18 mmol/LHigh9 - 17 mmol/LMKindred Hospital Dayton [place], KYAST [Catalytic activity/Vol]11 U/L<32[facility], KYBilirubin Ql (U)0.39 mg/dL0.3 - 1.2 mg/dLTrumbull Memorial Hospital, KYBun/Cre RatioNOT REPORTEDTrumbull Memorial Hospital, KYCalcium [Mass/Vol]9.5 mg/dL8.6 - 10.4 mg/dLTrumbull Memorial Hospital, KYChloride [Moles/Vol]99 mmol/L98 - 107 mmol/[facility] [place], KYCO2 [Moles/Vol]24 mmol/L 20 - 31 mmol/[facility] [place], KYCreatinine [Mass/Vol]0.63 mg/dL0.5 - 0.9 mg/dL [facility], KYGFR >60>60 mL/minTrumbull Memorial Hospital, KYGFR Non->60>60 mL/minTrumbull Memorial Hospital, KYGFR/1.73 sq M predicted among non-blacks MDRD (S/P/Bld) [Vol rate/Area][facility], KYComment on above:Average GFR for 70 or more years old: 75 mL/min/1.73sq m Chronic Kidney Disease: <60 mL/min/1.73sq m Kidney failure: <15 mL/min/1.73sq m eGFR calculated using average adult body mass. Additional eGFR calculator available at: http://www.ParkAround.com.Phigital/multiple_crcl_2012.htm GFR/1.73 sq M predicted among non-blacks MDRD (S/P/Bld) [Vol rate/Area]NOT REPORTEDTrumbull Memorial Hospital, KYGlucose [Mass/Vol]208 mg/sTNibt67 - 99 mg/dLEast [facility]- [place], KYInterpretation and review of laboratory resultsAbnormalEast [facility]- [place], KYPotassium [Moles/Vol]3.9 mmol/L3.7 - 5.3 mmol/LMWilson [facility]- [place], KYProtein [Mass/Vol]6.6 g/dL6.4 - 8.3 g/dLEast [facility]- [place], KYSodium [Moles/Vol] 141 mmol/L135 - 144 mmol/LMWilson Memorial Hospital- [place], KYUrea nitrogen [Mass/Vol]17 mg/dL8 - 23 mg/dLHenry County Hospital [place], KYEKG 12 Leadon 02-49-7390Mrfkyi Tufe73JMCVvjmk Health- [place], [place] Fdsl10dgeknaaYdrse Health- [place], KYP-R Twilbvzw795 [facility] [place], KYQ-T Svhtyqam162 [facility] [place], KYQRS Rlyvmbbg70 [facility]- [place], KYQTc Calculation (Timott)466 [facility]- [place], KYR Mooseheart-9degrCleveland Clinic [facility]- [place], KYT Czcn3xywacztMlrnf Health- [place], KYVentricular Miba76PJEZdooz Health- [place], KYEdi, Mhpn Incoming [place] [facility] [place] 3:25 PM EDT Normal sinus rhythm Possible Left atrial enlargement Nonspecific ST abnormality Abnormal ECG No previous ECGs availableTrumbull Memorial Hospital, KYNormal sinus rhythm Possible Left atrial enlargement Nonspecific ST abnormality Abnormal ECG No previous ECGs availableHenry County Hospital [place], KYLIPASEon [id number] [Catalytic activity/Vol] 48 U/L13 - 60 U/LMWilson Memorial Hospital- [place], KYLipaseon 01-65-5617Tldhgp [Catalytic activity/Vol]48 U/TBpogfl25-63ZsxpbAkron Children'S HospitalComment on above: Performed By: #### CDP, CP, LIP, TROPI, LIPRF, GLYHGB #### [facility] [address] [place] [address] [phone] Switch Foreman: Brandon Anaya MDLipid Prof, Fastingon 79-32-7868Snwuujxzmvm [Mass/Vol]229 mg/dLHigh<200Mercy Shc Specialty HospitalComment on above: Result Comment: Cholesterol Guidelines: <200 Desirable 200-240 Borderline >240 UndesirablePerformed By: #### CDP, CP, LIP, TROPI, LIPRF, GLYHGB #### [facility] [employer] [address] [place] [address] [phone] Switch Foreman: NEHAL Mcmanusholesterol in HDL [Mass/Vol]50 mg/dLNormal>40 [place] Children'S HospitalComment on above:Result Comment: HDL Guidelines: <40 Undesirable 40-59 Borderline >59 DesirablePerformed By: #### CDP, CP, LIP, TROPI, LIPRF, GLYHGB #### [facility] [employer] [address] [place] [address] 27001 Switch Foreman: NEHAL Mcmanusholesterol in LDL [Mass/Vol]143 mg/dLHigh0-130 [place] Children'S HospitalComment on above:Result Comment: LDL Guidelines: <100 Desirable 100-129 Near to/above Desirable 130-159 Borderline >159 Undesirable Direct (measured) LDL and calculated LDL are not interchangeable tests.Performed By: #### CDP, CP, LIP, TROPI, LIPRF, GLYHGB #### [facility] [employer] [address] [place] [address] [phone] Switch Foreman: NEHAL Mcmanusholesttrent.total/Cholesterol in HDL [Mass ratio]4.6 {ratio}Normal<5MerMission Bernal campusComment on above: Performed By: #### CDP, CP, LIP, TROPI, LIPRF, GLYHGB #### [employer] [address] [place] [address] [phone] Switch Foreman: Brandon Anaya MDTriglyceride,Zryzoxh807 mg/dLHigh<150Mercy Aristes Medical CenterComment on above:Result Comment: Triglyceride Guidelines: <150 Desirable 150-199 Borderline 200-499 High >499 Very high Based on AHA Guidelines for fasting triglyceride, November 2011.Performed By: #### CDP, CP, LIP, TROPI, LIPRF, GLYHGB #### [employer] [address] [place], [place] [phone] Switch Foreman: NEHAL Mcmanusholesterol in VLDL [Mass/Vol]NOT REPORTEDNormal 1-30[place] Children'S HospitalComment on above:Performed By: #### CDP, CP, LIP, TROPI, LIPRF, GLYHGB #### [employer] [address] [place], [place] [phone] Switch Foreman: Brandon Anaya MDLipid, Fastingon 56-94-3358Wawxqutrkie [Mass/Vol]229 mg/dLHigh<200[place], KYComment on above: Cholesterol Guidelines: <200 Desirable 200-240 Borderline >240 Undesirable Cholesterol in HDL [Mass/Vol]50 mg/dL>40[place], KYComment on above: HDL Guidelines: <40 Undesirable 40-59 Borderline >59 Desirable Cholesterol in LDL [Mass/Vol]143 mg/dLHigh0 - 130 mg/dLChe[place], [place] Comment on above: LDL Guidelines: <100 Desirable 100-129 Near to/above Desirable 130-159 Borderline >159 Undesirable Direct (measured) LDL and calculated LDL are not interchangeable tests. Cholesterol in VLDL [Mass/Vol]NOT REPORTEDHigh1 - 30 mg/dL[place], [place] Cholesterol.total/Cholesterol in HDL [Mass ratio]4.6 {ratio}<5[place], KYInterpretation and review of laboratory resultsAbnormalChe[place], [place] Triglyceride, Fveagxh811 mg/dLHigh<150[place], KYComment on above: Triglyceride Guidelines: <150 Desirable 150-199 Borderline 200-499 High >499 Very high Based on AHA Guidelines for fasting triglyceride, November 2011. POC Glucose Fingerstickon 50-25-8268Paqmdhp [Mass/Vol]126 mg/aYMjyd37 - 105 mg/dLMercy Health- [place], KYInterpretation and review of laboratory resultsAbnormal [facility], RTEVQF-FaX-6jl 38-52-2821GJTM-CoV-2NormalAk[place] Children'S HospitalComment on above:Performed By: #### COVID #### [facility] [employer] [address] [place] [address] [phone] Switch Foreman: Fausto Mcmanus2,RapidNot DetectedNormalNOTDETMJohn George Psychiatric PavilionComment on above:Result Comment: Rapid NAAT: The specimen [...] management decisions. Fact sheet for Healthcare Providers: https://www.fda.gov/media/043672/download Fact sheet for Patients: https://www.fda.gov/media/414296/download Methodology: Isothermal Nucleic Acid AmplificationPerformed By: #### COVID #### [facility] [address] [place] [address] [phone] Switch Foreman: Toi Mcmanus Source.NASOPHARYNGEAL SWABNormalAk[place] Children'S HospitalComment on above:Performed By: #### COVID #### [facility] [employer] [address] [place] [address] [phone] Switch Foreman: Abimael Mcmanus 31-02-5426Frqscngl I.cardiac [Mass/Vol]10 ng/LNormal0-14[place] Children'S HospitalComment on above: Result Comment: High Sensitivity Troponin values cannot be compared with other Troponin methodologies. Patients with high levels of Biotin oral intake (i.e >5mg/day) may have falsely decreased Troponin levels. Samples collected within 8 hours of biotin intake may require additional information for diagnosis.Performed By: #### TROPI, #### [employer] [address], [place] [phone] Switch Foreman: Brennan Mcmanus I.cardiac [Mass/Vol]NOT REPORTEDNormal <0.03[place] Children'S HospitalComment on above:Performed By: #### TROPI, #### [employer] [address] [place] [address] [phone] Switch Foreman: Brennan Mcmanus I.cardiac [Mass/Vol]10 ng/LNormal0-14 [place] [facility]'S HospitalComment on above:Result Comment: High Sensitivity Troponin values cannot be compared with other Troponin methodologies. Patients with high levels of Biotin oral intake (i.e >5mg/day) may have falsely decreased Troponin levels. Samples collected within 8 hours of biotin intake may require additional information for diagnosis.Performed By: #### CDP, CP, LIP, TROPI, LIPRF, GLYHGB #### [employer] [address] [place] [address] [phone] Switch Foreman: Brennan Mcmanus I.cardiac [Mass/Vol]NOT REPORTEDTrumbull Memorial Hospital, TXTroponin T.cardiac [Mass/Vol]NOT REPORTED<0.03 ng/mLTrumbull Memorial Hospital, KYTroponin, High Kzgslmjccra51 ng/L0 - 14 ng/LMMarietta Memorial Hospital, KYComment on above: High Sensitivity Troponin values cannot be compared with other Troponin methodologies. Patients with high levels of Biotin oral intake (i.e >5mg/day) may have falsely decreased Troponin levels. Samples collected within 8 hours of biotin intake may require additional information for diagnosis. Troponin I.cardiac [Mass/Vol]NOT REPORTEDNormal<0.03[place] Children'S HospitalComment on above:Performed By: #### CDP, CP, LIP, TROPI, LIPRF, GLYHGB #### [facility] [address] [place] [address] [phone] Switch Foreman: Brennan Mcmanus I.cardiac [Mass/Vol]NOT REPORTEDTrumbull Memorial Hospital, TXElida T.cardiac [Mass/Vol]NOT REPORTED<0.03 ng/mLRegency Hospital Companynin, High Mgqzmnrmbkp70 ng/L0 - 14 ng/LMMarietta Memorial Hospital, TXComment on above: High Sensitivity Troponin values cannot be compared with other Troponin methodologies. Patients with high levels of Biotin oral intake (i.e >5mg/day) may have falsely decreased Troponin levels. Samples collected within 8 hours of biotin intake may require additional information for diagnosis. UA w/Reflex Cultureon [id number] Acid,UrTRACEAbnormalNEGAkron Children'S HospitalComment on above:Performed By: #### CDP, CP, LIP, TROPI, LIPRF, GLYHGB #### [facility] [address] [place] [address] [phone] Switch Foreman: Brandon Anaya MDBilirubin, SemiQt,UrNegativeNormSamaritan HospitalComment on above:Performed By: #### CDP, CP, LIP, TROPI, LIPRF, GLYHGB #### [facility] [address] [place] [address] [phone] Switch Foreman: NEHAL Mcmanusolor (U)YELLOWNormalYELMerMission Bernal campusComment on above:Performed By: #### CDP, CP, LIP, TROPI, LIPRF, GLYHGB #### [facility] [address] [place] [address] [phone] Switch Foreman: Brandon Anaya MDGlucose Ql (U)NegativeNormalNEGAk[place] Children'S HospitalComment on above:Performed By: #### CDP, CP, LIP, TROPI, LIPRF, GLYHGB #### [facility] [address] [place] [address] [phone] Switch Foreman: Brandon Anaya MDHemoglobin, UrNegativeNormalNEGAk[place] Children'S HospitalComment on above:Performed By: #### CDP, CP, LIP, TROPI, LIPRF, GLYHGB #### [facility] [address] [place] [address] [phone] Switch Foreman: Brandon Anaya MDLeukocyte esterase Test strip Ql (U)Negative NormalNEGAkron Children'S HospitalComment on above:Performed By: #### CDP, CP, LIP, TROPI, LIPRF, GLYHGB #### [facility] [address] [place] [address] [phone] Switch Foreman: Brandon Anaya MDNitrite,UrNegativeNormalNEGAk[place] Children'S HospitalComment on above:Performed By: #### CDP, CP, LIP, TROPI, LIPRF, GLYHGB #### [facility] [address] [place] [address] [phone] Switch Foreman: Bladimir Mcmanus (U)5.5 [pH]Normal5.0-8.0[place] Children'S HospitalComment on above:Performed By: #### CDP, CP, LIP, TROPI, LIPRF, GLYHGB #### [facility] [address] [place] [address] [phone] Switch Foreman: BLADIMIR Mcmanusrotein Ql (U)1+AbnormalNEGAk[place] Children'S HospitalComment on above:Performed By: #### CDP, CP, LIP, TROPI, LIPRF, GLYHGB #### [facility] [address] [place] [address] [phone] Switch Foreman: FABIANA Mcmanuspecific gravity (U) [Rel density]1.086High 1.005-1.030[place] Children'S HospitalComment on above:Performed By: #### CDP, CP, LIP, TROPI, LIPRF, GLYHGB #### [facility] [employer] [address] [place] [address] [place] [phone] Switch Foreman: Brandon Anaya MDTurbidityCLEARFulton State HospitalalCMercy Health Willard HospitalComment on above:Performed By: #### CDP, CP, LIP, TROPI, LIPRF, GLYHGB #### [facility] [address] [place] [address] [phone] Switch Foreman: Brandon Anaya MDUrobilinogen,UrNormalNormalAshtabula General HospitalComment on above:Performed By: #### CDP, CP, LIP, TROPI, LIPRF, GLYHGB #### [facility] [address] [place] [address] [phone] Switch Foreman: NEHAL McmanusommentNOT REPORTEDOhioHealth Arthur G.H. Bing, MD, Cancer CenterComment on above:Performed By: #### CDP, CP, LIP, TROPI, LIPRF, GLYHGB #### [facility] [address] [place] [address] [phone] Switch Foreman: Brandon Anaya MDURINALYSIS, MICROon 21-14-6798Tbsbiioec, UANOT REPORTEDNoneMercy Health- [place], KYBacteria, UANOT REPORTEDNoneMercy [...] [place], [place]-[facility]- [place], KYUS ABDOMEN LIMITEDon [id number] ABDOMEN LIMITED EXAMINATION: RIGHT UPPER QUADRANT ULTRASOUND 10/09/2019 3:35 pm COMPARISON: None. HISTORY: ORDERING SYSTEM PROVIDED HISTORY: RUQ and epigastric pain, r/o cholecystitis, gall bladder, pancreas pathology secretary PROVIDED HISTORY: RUQ and epigastric pain, r/o [...] Signed by: Fransisco Ochoa MD 10/09/19 Final resultNormalAk[place] Children'S HospitalUS ABDOMEN LIMITED Specify organ? LIVER, GALLBLADDER, PANCREASon [id number]: RIGHT UPPER QUADRANT ULTRASOUND 10/09/2019 3:35 pm COMPARISON: None. HISTORY: ORDERING SYSTEM PROVIDED HISTORY: RUQ and epigastric pain, r/o cholecystitis, gall bladder, pancreas pathology secretary PROVIDED HISTORY: RUQ and epigastric pain, r/o [...] OTHER: No evidence of right upper quadrant ascites.[facility] Memorial HospitalShanearkable right upper quadrant ultrasound.Tr[facility] Memorial HospitalRadha Mhpn Incoming Radiant Results From [employer] - 10/09/2019 4:01 PM EDT EXAMINATION: RIGHT UPPER QUADRANT ULTRASOUND 10/09/2019 3:35 pm COMPARISON: None. HISTORY: ORDERING SYSTEM PROVIDED HISTORY: RUQ and epigastric pain, r/o cholecystitis, gall bladder, pancreas pathology secretary PROVIDED HISTORY: RUQ and epigastric pain, r/o [...] ascites. IMPRESSION: Unremarkable right upper quadrant ultrasound. [facility]- [place], KYUrinalysis Reflex to Cultureon [id number] Urine NegativeNEGATIVEEast [facility]- [place], KYColor, UAYELLOWYELLOWEast [facility]- [place], [place] Glucose, UrNegativeNEGATIVEMercy Health [facility] Health- [place], KYInterpretation and review of laboratory resultsAbnormalMercy Health [facility] Health- [place], KYKetones Ql (U)TRACEAbnormal NEGATIVEEast [facility]- [place], KYLeukocyte esterase Test strip Ql (U)NegativeNEGATIVE [facility]- [place], KYNitrite, UrineNegativeNEGATIVEEast [facility]- [place], KYpH, UA5.5 [facility]- [place], KYProtein (U) [Mass/Vol]1+AbnormalNEGATIVEMercy Health [facility] Health- [place], [place] Specific [place], UA1.086HighMer Health- [place], KYTurbidity UACLEARCLEAREast [facility]- [place], KYUrinalysis CommentsNOT REPORTEDMer Health- [place], KYUrine Hgb NegativeNEGATIVEMercy Health [facility] Health- [place], KYUrobilinogen, UrineNormalNormalMercy Health [facility] Health- [place], KYUrinalysis,Microon 10-09-2019-----NormalAk[place] Children'S Hospital Comment on above:Performed By: #### CDP, CP, LIP, TROPI, LIPRF, GLYHGB #### [employer] [address] [place], [place] [phone] Switch Foreman: Brandon Anaya MDEpithelial cells LM.HPF (Urine sed) [#/Area]10 TO 95Tchwck5-4HxsedAk[place] Children'S HospitalComment on above:Performed By: #### CDP, CP, LIP, TROPI, LIPRF, GLYHGB #### [facility] [address] [place] [address] [phone] Switch Foreman: DREW Mcmanus (U) [#/Vol]0 TO 1Iiedng1-9Hzvwb Shc Specialty HospitalComment on above:Performed By: #### CDP, CP, LIP, TROPI, LIPRF, GLYHGB #### [facility] [address] [place] [address] [phone] Switch Foreman: TAMMY Mcmanus (U) [#/Vol]0 TO 9Dakeld0-1AuogvAk[place] Children'S HospitalComment on above:Performed By: #### CDP, CP, LIP, TROPI, LIPRF, GLYHGB #### [address] [address] Switch Foreman: Hanh Mcmanusrphoudavid sediment LM Ql (Urine sed)NOT REPORTED NormalMartins Ferry HospitalComment on above:Performed By: #### CDP, CP, LIP, TROPI, LIPRF, GLYHGB #### [facility] [address] [place] [address] [phone] Switch Foreman: Rita Mcmanus LM.HPF (Urine sed) [#/Area]NOT REPORTED NormalMartins Ferry HospitalComment on above:Performed By: #### CDP, CP, LIP, TROPI, LIPRF, GLYHGB #### [facility] [address] [place] [address] [phone] Switch Foreman: NEHAL Mcmanusasts LM.LPF (Urine sed) [#/Area]NOT REPORTED Normal0-2MJohn George Psychiatric PavilionComment on above:Performed By: #### CDP, CP, LIP, TROPI, LIPRF, GLYHGB #### [facility] [address] [place] [address] [phone] Switch Foreman: Andrew Mcmanus LM Nom (Urine sed)NOT REPORTEDNormal NONEAk[place] Children'S HospitalComment on above:Performed By: #### CDP, CP, LIP, TROPI, LIPRF, GLYHGB #### [facility] [address] [place] [address] [phone] Switch Foreman: Brandon Anaya MDEpithelial, RenalNOT NGCAFCUUMacizd5BedqlAk[place] Children'S HospitalComment on above:Performed By: #### CDP, CP, LIP, TROPI, LIPRF, GLYHGB #### [facility] [address] [place] [address] [phone] Switch Foreman: Yulia Mcmanus StrandsNOT REPORTEDNormalNONEMeVencor HospitalComment on above:Performed By: #### CDP, CP, LIP, TROPI, LIPRF, GLYHGB #### [facility] [address] [place] [address] [phone] Switch Foreman: Brandon Anaya MDOther ObservationsNOT REPORTEDNormalNREQAk[place] Children'S HospitalComment on above:Performed By: #### CDP, CP, LIP, TROPI, LIPRF, GLYHGB #### [facility] [address] [place] [address] [phone] Switch Foreman: Grant McmanushomonasNOT REPORTEDNormalNONProMedica Bay Park HospitalComment on above:Performed By: #### CDP, CP, LIP, TROPI, LIPRF, GLYHGB #### [facility] [address] [place] [address] 75949 Switch Foreman: Donna Mcmanus LM Ql (Urine sed)NOT REPORTEDNormalNONE [place] [facility]'S HospitalComment on above:Performed By: #### CDP, CP, LIP, TROPI, LIPRF, GLYHGB #### [facility] [address] [place] [address] 95830 Switch Foreman: LORIE Mcmanus ABDOMEN (KUB) (SINGLE AP VIEW)on [id number] ABDOMEN (KUB) (SINGLE AP VIEW)EXAMINATION: ONE SUPINE [...] Signed by: Naga Browning MD 10/09/19 Final resultNoSalem Regional Medical CenterNo evidence of bowel obstruction.[facility] Memorial HospitalCLARAEXAMINATION: ONE SUPINE XRAY VIEW(S) OF THE ABDOMEN 10/09/2019 7:17 pm COMPARISON: None. HISTORY: ORDERING SYSTEM PROVIDED HISTORY: r/o SBO TECHNOLOGIST PROVIDED HISTORY: r/o SBO Reason for Exam: port Supine FINDINGS: Nonspecific, nonobstructive bowel gas pattern with paucity of bowel gas. Atherosclerotic calcifications. Retained contrast in the urinary bladder. No acute osseous abnormality.Tr[facility] Memorial HospitalRadha Mhpn Incoming Radiant Results From [employer] - 10/09/2019 7:35 PM EDT EXAMINATION: ONE [...] abnormality. IMPRESSION: No evidence of bowel obstruction. [facility] HospitalCLARAAldosteroneon 83-34-0741Dhmuvspmmqb9.8 ng/dLNoBerger HospitalComment on above:Result Comment: (NOTE)INTERPRETIVE INFORMATION: Aldosterone, [...] c referenceintervals for this test in the [facility] Test Directory([employer]).Performed by [employer],[address] [place] [address] [phone] euv.[employer], Nik Rosas MD, Lab.DirectorPerformed at [facility] [address] [place] [address] [phone] Performed By: #### CORTTejinder ####[facility] [place] [address] #### MARYAM, AREN ####[facility] [place] [address] Renin Activityon 20-51-3641Mdpfw Activity0.1 ng/mL/hrNormFulton County Health CenterComment on above:Result Comment: (NOTE)INTERPRETIVE INFORMATION: Renin [...] activity when angiotensinogen isdecreased.See Compliance Statement D: www.[employer]/CSPerformed by [employer],[address] [place] [address] [phone] lfe.[employer], Nik Rosas MD, Lab. DirectorPerformed at [facility] [address] [place] [address] ([phone] By: #### CORTI ####[employer] [place], [place] [phone] #### AALD, AREN ####[facility] [place] [address] Basic Metab w/rfx MGon 06-29-2017(cont.)NormalMerSouthwest General Health CenterComment on above:Result Comment: Average GFR for 70 or more years old: 75 mL/min/1.73sq mChronic Kidney Disease: <60 mL/min/1.73sq mKidney failure: <15 mL/min/1.73sq meGFR calculated using average adult body mass. Additional eGFR calculator available at:http://www.ParkAround.com.com/multiple_crcl_2012.htmPerformedat [address] [address] Performed By: #### CDP, BMPX, TROPI ####[address] [address] Anion gap10 mmol/LNormal9-17Protestant HospitalComment on above:Performed By: #### CDP, BMPX, TROPI ####[address] [address] Tuykuva5.1 mg/dLNormal8.6-10.4Protestant HospitalComment on above:Performed By: #### CDP, BMPX, TROPI ####[address] [address] Waegkaqs791 mmol/CKwvqdr93-495CpufxSouthwest General Health CenterComment on above:Performed By: #### CDP, BMPX, TROPI ####[address] [address] TV977 mmol/LDscihr90-11HxsvwProtestant HospitalComment on above:Performed By: #### CDP, BMPX, TROPI ####[address] [address] Wzegejxjbm6.66 mg/dLNormal0.50-0.90 Protestant HospitalComment on above:Performed By: #### CDP, BMPX, TROPI ####[address] [address] eGFR (non-black)mL/min/{1.73_m2}Normal>60[facility]field HospitalComment on above: Performed By: #### CDP, BMPX, TROPI ####[address] [address] Glucose mass vdcm339 mg/sDWknm22-02WwnkbOhioHealth Southeastern Medical CenterComment on above:Performed By: #### CDP, BMPX, TROPI ####[address] [address] Potassium molar conc4.1 mmol/LNormal3.7-5.3MercOhioHealth Southeastern Medical CenterComment on above: Performed By: #### CDP, BMPX, TROPI ####[address] [address] Exluto158 mmol/EWiavos101-305IbmhoSouthwest General Health CenterComment on above:Performed By: #### CDP, BMPX, TROPI ####[address] [address] Urea lyydghxs64 mg/dLNormal8-23Protestant HospitalComment on above:Performed By: #### CDP, BMPX, TROPI ####[address] [address] BUN/CRE RatioNOT REPORTEDNormal9-20[facility] Comment on above:Performed By: #### CDP, BMPX, TROPI ####[address] [address] Staging:NOT REPORTEDNormal Protestant HospitalComment on above:Performed By: #### CDP, BMPX, TROPI ####[address] [address] CBC with Diffon 05-49-5877Vud. Basophil0.00 k/uLNormal0.0-0.2MercOhioHealth Southeastern Medical CenterComment on above:Result Comment: Performed at [address] [place] [address] Performed By: #### CDP, BMPX, TROPI ####[address] [phone].Neutrophil (Seg)3.80 k/uLNormal1.3-9.1Mkindred hospital limay [facility] Comment on above:Performed By: #### CDP, BMPX, TROPI ####[address] [address] Basophils/100 WBC Auto (Bld)1 %Normal0-2[facility] HospitalComment on above:Performed By: #### CDP, BMPX, TROPI ####[address] [address] Coqtvxxrckf6.20 10*3/uLNormal0.0-0.4[facility] Hospitalcy [facility] Comment on above:Performed By: #### CDP, BMPX, TROPI ####[address] [address] Eosinophils/100 leukocytes 2 %Normal0-4Protestant HospitalComment on above:Performed By: #### CDP, BMPX, TROPI ####[address] [phone] distribution width Auto Ratio (RBC)14.5 %Efuveh74.5-14.9 Protestant HospitalComment on above:Performed By: #### CDP, BMPX, TROPI ####[address] [address] Erythrocytes (RBC)4.36 10*6/uLNormal4.0-5.2[facility] HospitalComment on above:Performed By: #### CDP, BMPX, TROPI ####[address] [address] Hematocrit (HCT)38.3 %Kyqahk41-30JhwzwProtestant HospitalComment on above:Performed By: #### CDP, BMPX, TROPI ####[address] [address] Hemoglobin mass conc (Bld)12.9 g/tLFvadkg16.0-16.0[facility] Comment on above:Performed By: #### CDP, BMPX, TROPI ####[address] [address] Baxqxbhpzev2.20 10*3/uL Normal1.0-4.8MerSouthwest General Health CenterComment on above:Performed By: #### CDP, BMPX, TROPI ####[address] [phone]/100 aywuvzmfhs63 %Klsjce53-52TptcfProtestant Hospital Comment on above:Performed By: #### CDP, BMPX, TROPI ####[address] [address] RDO54.5 nwGyqusq45-11YeetnSouthwest General Health CenterComment on above:Performed By: #### CDP, BMPX, TROPI ####[address] [address] MCHC mass conc (RBC)33.6 g/kZPhdunt21-25MfgdrSouthwest General Health CenterComment on above: Performed By: #### CDP, BMPX, TROPI ####[address] [address] KTJ44.8 qUWbvbiq73-598FqjzwSouthwest General Health CenterComment on above:Performed By: #### CDP, BMPX, TROPI ####[facility] [address] [address] Myugpinho8.50 10*3/uLNormal0.1-1.3[facility] HospitalComment on above:Performed By: #### CDP, BMPX, TROPI ####[address] [address] Monocytes/100 leukocytes8 %High1-7[facility] Comment on above:Performed By: #### CDP, BMPX, TROPI ####[address] [address] Neutrophil (Seg)57 %Normal 36-66MerSouthwest General Health CenterComment on above:Performed By: #### CDP, BMPX, TROPI ####[address] [phone] mean volume (PMV)8.5 fLNormal6.0-12.0Protestant HospitalComment on above:Performed By: #### CDP, BMPX, TROPI ####[address] [address] Yitskgrnr938 10*3/qPQnhebe108-178MmvsrSouthwest General Health CenterComment on above:Performed By: #### CDP, BMPX, TROPI ####[address] [address] WBC (Leukocytes)6.7 10*3/uLNormal3.5-11.0Protestant HospitalComment on above:Performed By: #### CDP, BMPX, TROPI ####[address] [address] Auto Diff PerformedNOT REPORTEDUniversity Hospitals St. John Medical CenterComment on above:Performed By: #### CDP, BMPX, TROPI ####[address] [place] [address] Erythrocyte morphologyNOT REPORTEDNoBerger HospitalComscheurer hospital on above:Performed By: #### CDP, BMPX, TROPI ####[address] [address] Erythrocytes (RBC) NOT REPORTEDNormalProtestant HospitalComment on above:Performed By: #### CDP, BMPX, TROPI ####[address] [address] Granulocytes/100 WBC (Bld)NOT REPORTEDNormal0.00-0.30Pro[facility] HospitalComscheurer hospital on above:Performed By: #### CDP, BMPX, TROPI ####[address] [address] Immature granulocytes #/vol (Bld)NOT SMZRHUUSNerpin1VqrzpHolmes County [facility] Hospital on above:Performed By: #### CDP, BMPX, TROPI ####[address] [address] PlateletsNOT REPORTEDNoSelect Medical Specialty [facility] - [facility] on above:Performed By: #### CDP, BMPX, TROPI ####[address] [address] WBC Morphology NOT REPORTEDNormalKettering Health Hamiltonment on above:Performed By: #### CDP, BMPX, TROPI ####[address] [address] Troponinon 41-06-6191Bndulppr I.cardiac mass concNormFulton County Health CenterComment on above:Result Comment: Reference Range: <0.03 Within reference range. 0.03-0.09 Possible myocardial damage.Repeat at appropriate intervals to rule out chronic elevation. >= 0.10 Indicative of myocardial damage.Patients with high levels of Biotin oral intake (i.e >5mg/day) may have falsely decreased Troponin T levels. Samples collected within 8 hours of biotin intake may require additional information for diagnosis.Performed at [address] [address] [phone] By: #### CDP, BMPX, TROPI ####[address] [address] Troponin T.cardiac mass concug/LNormal<0.03Protestant HospitalComment on above:Result Comment: Troponin T results cannot be compared to Troponin-I results.Performed By: #### CDP, BMPX, TROPI ####[address] [phone] I.cardiac mass concNormalMerSouthwest General Health Center Comment on above:Result Comment: Reference Range: <0.03 Within reference range. 0.03-0.09 Possible myocardial damage.Repeat at appropriate intervals to rule out chronic elevation. >= 0.10 Indicative of myocardial damage.Patients with high levels of Biotin oral intake (i.e >5mg/day) may have falsely decreased Troponin T levels. Samples collected within 8 hours of biotin intake may require additional information for diagnosis.Performed at [address] [address] [phone] By: #### TROPI ####[address] [address] Troponin T.cardiac mass concug/LNormal<0.03Protestant HospitalComment on above:Result Comment: Troponin T results cannot be compared to Troponin-I results.Performed By: #### TROPI ####[address] [phone] CHEST (2 VW)on 15-98-5142DG CHEST (2 VW)EXAMINATION:TWO VIEWS OF THE CHEST, [...] cardiopulmonary findings.Interpreted by:FABIANA Oliverigned by:Zaire Dominguez MD//18Final resultNormalMerSouthwest General Health Center Basic Metab w/rfx MGon 06-28-2017(cont.)NormalProtestant HospitalComment on above:Result Comment: Average GFR for 70 or more years old: 75 mL/min/1.73sq mChronic Kidney Disease: <60 mL/min/1.73sq mKidney failure: <15 mL/min/1.73sq meGFR calculated using average adult body mass. Additional eGFR calculator available at:http://www.TalentBin/multiple_crcl_2012.htmPerformedat [facility] [address] [place] [address] Performed By: #### KRIS, BMPX ####[address] [address] Anion gap13 mmol/LNormal9-17Protestant HospitalComment on above:Performed By: #### CDP, BMPX ####[address] [address] Calcium8.7 mg/dLNormal 8.6-10.4Protestant HospitalComment on above:Performed By: #### KRIS, BMPX ####[address] [place] [address] Proytitg355 mmol/XNcaytd01-871BejrmProtestant HospitalComment on above: Performed By: #### CDP, BMPX ####[address] [place] [address] XU351 mmol/GFhrbhf30-29RpvgrSouthwest General Health CenterComment on above:Performed By: #### CDP, BMPX ####[address] [address] Rixyuytnkz8.53 mg/dLNormal 0.50-0.90Protestant HospitalComment on above:Performed By: #### CDP, BMPX ####[address] [address] eGFR (non-black)mL/min/{1.73_m2}Normal>60MerSouthwest General Health CenterComment on above:Performed By: #### CDP, BMPX ####[address] [address] Glucose mass omof533 mg/sFCxug62-23Cynzd [facility] HospitalComment on above:Performed By: #### CDP, BMPX ####[address] [address] Potassium molar conc3.7 mmol/LNormal3.7-5.3Mercy [facility] HospitalComment on above:Performed By: #### CDP, BMPX ####[address] [address] Goxngm860 mmol/JQijrvu184-996BqxfiSouthwest General Health CenterComment on above:Performed By: #### CDP, BMPX ####[address] [address] Urea mg/dLNormal8-23Protestant HospitalComment on above:Performed By: #### CDP, BMPX ####[address] [phone]/CRE RatioNOT REPORTEDNormal9-20Protestant HospitalComment on above:Performed By: #### CDP, BMPX ####[address] [phone]:NOT REPORTEDNormalProtestant HospitalComment on above:Performed By: #### CDP, BMPX ####[address] [phone] Metabolic Profon 06-28-2017(cont.)Normal Protestant HospitalComment on above:Result Comment: Average GFR for 70 or more years old: 75 mL/min/1.73sq mChronic Kidney Disease: <60 mL/min/1.73sq mKidney failure: <15 mL/min/1.73sq meGFR calculated using average adult body mas s. Additional eGFR calculator available at:http://www.TalentBin/multiple_crcl_2012.htmPerformedat [place] [address] [place] [address] ([phone] By: #### CDP, BMP, TROPI, TSHX ####[address] [phone] gap13 mmol/LNormal9-17Protestant HospitalComment on above:Performed By: #### CDP, BMP, TROPI, TSHX ####[address] [phone] mg/dL Normal8.6-10.4Protestant HospitalComment on above:Performed By: #### CDP, BMP, TROPI, TSHX ####[address] [address] Phxkquto562 mmol/EQshkbo90-977SvdfvProtestant HospitalComment on above:Performed By: #### CDP, BMP, TROPI, TSHX ####[address] [address] YJ726 mmol/WHnrnmh57-52 Protestant HospitalComment on above:Performed By: #### CDP, BMP, TROPI, TSHX ####[address] [address] Tbjknbgicg3.61 mg/dLNormal0.50-0.90[facility] Comment on above:Performed By: #### CDP, BMP, TROPI, TSHX ####[address] [address] eGFR (non-black) mL/min/{1.73_m2}Normal>60MerSouthwest General Health CenterComment on above:Performed By: #### CDP, BMP, TROPI, TSHX ####[address] [address] Glucose mass xvkp637 mg/tCCyel64-24Vaugc [facility] HospitalComment on above:Performed By: #### CDP, BMP, TROPI, TSHX ####[address] [address] Potassium molar conc4.7 mmol/LNormal3.7-5.3Mkindred hospital limay [facility] HospitalComment on above:Performed By: #### CDP, BMP, TROPI, TSHX ####[address] [address] Lrwpsv788 mmol/LNormal 135-144MerSouthwest General Health CenterComment on above:Performed By: #### CDP, BMP, TROPI, TSHX ####[address] [address] Urea qblfatyp41 mg/dLNormal8-23[facility] Comment on above:Performed By: #### CDP, BMP, TROPI, TSHX ####[address] [phone]/CRE RatioNOT REPORTED Normal9-20Protestant HospitalComment on above:Performed By: #### CDP, BMP, TROPI, TSHX ####[address] [phone]:NOT REPORTEDNormalProtestant HospitalComment on above:Performed By: #### CDP, BMP, TROPI, TSHX ####[address] [phone] with Diffon 06-28-2017 Abs. Basophil0.00 k/uLNormal0.0-0.2[facility] HospitalComment on above: Result Comment: Performed at [address] [address] [phone] By: #### CDP, BMPX ####[address] [phone].Neutrophil (Seg)5.50 k/uLNormal1.3-9.1Mer[facility] HospitalComment on above:Performed By: #### CDP, BMPX ####[address] [phone]/100 WBC Auto (Bld)1 %Normal0-2[facility] HospitalComment on above:Performed By: #### CDP, BMPX ####[address] [phone] 10*3/uL Normal0.0-0.4Protestant HospitalComment on above:Performed By: #### CDP, BMPX ####[address] [phone]/100 leukocytes2 %Normal0-4Pro[facility] HospitalComscheurer hospital on above:Performed By: #### CDP, BMPX ####[address] [address] Erythrocyte distribution width Auto Ratio (RBC) 14.8 %Gpdtjf47.5-14.9Pro[facility] HospitalComscheurer hospital on above:Performed By: #### CDP, BMPX ####[address] [address] Erythrocytes (RBC)4.47 10*6/uLNormal4.0-5.2[facility] HospitalComment on above:Performed By: #### CDP, BMPX ####[address] [address] Hematocrit (HCT)39.8 % Tklsss99-41EswkhProtestant HospitalComscheurer hospital on above:Performed By: #### CDP, BMPX ####[address] [phone] mass conc (Bld)13.3 g/rUGikzsf46.0-16.0Protestant HospitalComment on above:Performed By: #### CDP, BMPX ####[address] [address] Zslannbyryt0.90 10*3/uL Normal1.0-4.8Pro[facility] HospitalComscheurer hospital on above:Performed By: #### CDP, BMPX ####[address] [phone]/100 xjavwhxhey05 %Gkh74-84LddmqProtestant HospitalComment on above:Performed By: #### CDP, BMPX ####[address] [place] [address] WGJ41.7 mnAhrqdu21-59AseazProtestant Hospital Comment on above:Performed By: #### CDP, BMPX ####[address] [place] [address] MCHC mass conc (RBC)33.3 g/dLNormal 31-37Protestant HospitalComment on above:Performed By: #### CDP, BMPX ####[address] [place] [address] MCV 89.1 oSXwzoai71-327PfljtProtestant HospitalComment on above:Performed By: #### CDP, BMPX ####[address] [place] [address] Rtljcdeoo6.50 10*3/uLNormal0.1-1.3MSt. [facility]'s [facility] Comment on above:Performed By: #### CDP, BMPX ####[address] [place] [address] Monocytes/100 leukocytes6 %Normal1-7 [facility] HospitalComment on above:Performed By: #### CDP, BMPX ####[address] [address] Neutrophil (Seg)68 %Fbeu57-09UdgdiProtestant HospitalComment on above: Performed By: #### CDP, BMPX ####[address] [address] Platelet mean volume (PMV)8.6 fLNormal6.0-12.0 [facility] on above:Performed By: #### CDP, BMPX ####[address] [address] Rpqldyonk970 10*3/bAXodsya289-930LjodgProtestant HospitalComscheurer hospital on above: Performed By: #### CDP, BMPX ####[address] [address] WBC (Leukocytes)8.0 10*3/uLNormal3.5-11.0Pro[facility] HospitalComscheurer hospital on above:Performed By: #### CDP, BMPX ####[address] [address] Auto Diff PerformedNOT REPORTEDNoSelect Medical Specialty Hospital - [facility] on above:Performed By: #### CDP, BMPX ####[address] [address] Erythrocyte morphologyNOT REPORTEDNoBerger HospitalComscheurer hospital on above:Performed By: #### CDP, BMPX ####[address] [address] Erythrocytes (RBC)NOT REPORTEDNormalKettering Health Hamiltonment on above:Performed By: #### CDP, BMPX ####[address] [phone]/100 WBC (Bld)NOT REPORTEDNormal0.00-0.30[facility] on above:Performed By: #### CDP, BMPX ####[address] [address] Immature granulocytes #/vol (Bld)NOT HWXKVNBZCvevis0Knvar[address] [place] [address] on above: Performed By: #### CDP, BMPX ####[address] [address] PlateletsNOT REPORTEDNormalMercy Mercy Health Fairfield HospitalComment on above:Performed By: #### CDP, BMPX ####[address] [address] WBC MorphologyNOT REPORTED NormalProtestant HospitalComment on above:Performed By: #### CDP, BMPX ####[address] [address] Abs. Basophil0.10 k/uLNormal0.0-0.2[facility] HospitalComment on above:Result Comment: Performed at [address] [address] Performed By: #### CDP, BMP, TROPI, TSHX ####[address] [address] Abs.Neutrophil (Seg)4.20 k/uLNormal1.3-9.1[facility] HospitalComment on above:Performed By: #### CDP, BMP, TROPI, TSHX ####[address] [address] Basophils/100 WBC Auto (Bld)1 %Normal0-2[facility] HospitalComment on above:Performed By: #### CDP, BMP, TROPI, TSHX ####[address] [address] Zugaxzewwjy4.20 10*3/uLNormal0.0-0.4[facility] Comment on above:Performed By: #### CDP, BMP, TROPI, TSHX ####[address] [address] Eosinophils/100 leukocytes 2 %Normal0-4Mer[facility] Fairfield HospitalComment on above:Performed By: #### CDP, BMP, TROPI, TSHX ####[address] [address] Erythrocyte distribution width Auto Ratio (RBC)14.7 %Normal 11.5-14.9Protestant HospitalComment on above:Performed By: #### CDP, BMP, TROPI, TSHX ####[address] [address] Erythrocytes (RBC)4.38 10*6/uLNormal4.0-5.2[facility] HospitalComment on above:Performed By: #### CDP, BMP, TROPI, TSHX ####[address] [address] Hematocrit (HCT) 38.7 %Uhwyfc31-27DcmqlProtestant HospitalComment on above:Performed By: #### CDP, BMP, TROPI, TSHX ####[address] [address] Hemoglobin mass conc (Bld)12.9 g/nFPbeajh12.0-16.0Protestant HospitalComment on above:Performed By: #### CDP, BMP, TROPI, TSHX ####[address] [address] Lymphocytes2.60 10*3/uLNormal1.0-4.8MerSouthwest General Health CenterComscheurer hospital on above: Performed By: #### CDP, BMP, TROPI, TSHX ####[address] [address] Lymphocytes/100 ligzibwafb25 %Normal 24-44Protestant HospitalComment on above:Performed By: #### CDP, BMP, TROPI, TSHX ####[address] [address] MPH52.6 auSbsfkk34-26KrzrhProtestant HospitalComment on above:Performed By: #### CDP, BMP, TROPI, TSHX ####[address] [address] MCHC mass conc (RBC)33.4 g/rQQtcvdd08-57NnerqSouthwest General Health CenterComment on above:Performed By: #### CDP, BMP, TROPI, TSHX ####[address] [address] AFY67.4 eLXtxbwk85-367QblcnSouthwest General Health CenterComment on above:Performed By: #### CDP, BMP, TROPI, TSHX ####[address] [address] Ujnyveaff9.60 10*3/uL Normal0.1-1.3Mkindred hospital limay [facility] HospitalComment on above:Performed By: #### CDP, BMP, TROPI, TSHX ####[address] [address] Monocytes/100 leukocytes8 %High1-7[facility] Comment on above:Performed By: #### CDP, BMP, TROPI, TSHX ####[address] [address] Neutrophil (Seg)55 %Normal 36-66MerSouthwest General Health CenterComment on above:Performed By: #### CDP, BMP, TROPI, TSHX ####[address] [address] Platelet mean volume (PMV)8.6 fLNormal6.0-12.0MerSouthwest General Health CenterComment on above:Performed By: #### CDP, BMP, TROPI, TSHX ####[address] [address] Mxakjdsgh292 10*3/oEUerbdb950-611WhqipProtestant HospitalComment on above:Performed By: #### CDP, BMP, TROPI, TSHX ####[address] [address] WBC (Leukocytes)7.7 10*3/uLNormal3.5-11.0Protestant HospitalComment on above:Performed By: #### CDP, BMP, TROPI, TSHX ####[address] [address] Auto Diff PerformedNOT REPORTEDNormalProtestant HospitalComment on above: Performed By: #### CDP, BMP, TROPI, TSHX ####[address] [address] Erythrocyte morphologyNOT REPORTED NormalProtestant HospitalComment on above:Performed By: #### CDP, BMP, TROPI, TSHX ####[address] [address] Erythrocytes (RBC)NOT REPORTEDNormalProtestant Hospital Comment on above:Performed By: #### CDP, BMP, TROPI, TSHX ####[address] [address] Granulocytes/100 WBC (Bld) NOT REPORTEDNormal0.00-0.30Protestant HospitalComment on above:Performed By: #### CDP, BMP, TROPI, TSHX ####[address] [address] Immature granulocytes #/vol (Bld)NOT REPORTED Hfcnmi0KsttiProtestant HospitalComment on above:Performed By: #### CDP, BMP, TROPI, TSHX ####[address] [phone] REPORTEDNormalMerSouthwest General Health CenterComment on above:Performed By: #### CDP, BMP, TROPI, TSHX ####[address] [place] [phone] MorphologyNOT REPORTED NormalProtestant HospitalComment on above:Performed By: #### CDP, BMP, TROPI, TSHX ####[address] [phone] 44-25-5607Bwbibexf8.7 ug/dLNormal2.7-18.4Protestant HospitalComment on above:Result Comment: Cortisol Reference Range: AM 6.0-18.4 PM 2.7-10.5Performed at [address] [address] Performed By: #### CORTI ####[address] [address] #### AALD, AREN ####[address] [phone] Info.NOT REPORTEDNormalMerSouthwest General Health CenterComscheurer hospital on above:Performed By: #### CORTI ####[address] [address] #### AALD, AREN ####[address] [address] Renin Activityon 28-72-7085Xupgsmu:NOT REPORTEDNormalMerSouthwest General Health CenterComscheurer hospital on above:Performed By: #### CORTI ####[address] [address] #### AALD, AREN ####[address] [address] TSH w/reflex to FT4on 04-33-5079Vtpsman stimulating hormone (TSH)2.65 m[IU]/LNormal 0.30-5.00Protestant HospitalComment on above:Result Comment: Performed at [address] [address] [phone] By: #### CDP, BMP, TROPI, TSHX ####[address] [address] Troponinon 06-28-2017 Troponin I.cardiac mass concNormFulton County Health CenterComment on above: Result Comment: Reference Range: <0.03 Within reference range. 0.03-0.09 Possible myocardial damage.Repeat at appropriate intervals to rule out chronic elevation. >= 0.10 Indicative of myocardial damage.Patients with high levels of Biotin oral intake (i.e >5mg/day) may have falsely decreased Troponin T levels. Samples collected within 8 hours of biotin intake may require additional inform ation for diagnosis.Performed at [address] [address] [phone] By: #### TROPI ####[address] [address] Troponin T.cardiac mass concug/LNormal<0.03Protestant HospitalComment on above:Result Comment: Troponin T results cannot be compared to Troponin-I results.Performed By: #### TROPI ####[address] [address] Troponin I.cardiac mass concNormalProtestant Hospital Comment on above:Result Comment: Reference Range: <0.03 Within reference range. 0.03-0.09 Possible myocardial damage.Repeat at appropriate intervals to rule out chronic elevation. >= 0.10 Indicative of myocardial damage.Patients with high levels of Biotin oral intake (i.e >5mg/day) may have falsely decreased Troponin T levels. Samples collected within 8 hours of biotin intake may require additional information for diagnosis.Performed at [address] [address] [phone] By: #### TROPI ####[address] [phone] T.cardiac mass concug/LNormal<0.03[facility] on above:Result Comment: Troponin T results cannot be compared to Troponin-I results.Performed By: #### TROPI ####[address] [phone] I.cardiac mass concNormalMerSelect Medical Specialty Hospital - [place] on above:Result Comment: Reference Range: <0.03 Within reference range. 0.03-0.09 Possible myocardial damage.Repeat at appropriate intervals to rule out chronic elevation. >= 0.10 Indicative of myocardial damage.Patients with high levels of Biotin oral intake (i.e >5mg/day) may have falsely decreased Troponin T levels. Samples collected within 8 hours of biotin intake may require additional information for diagnosis.Performed at [address] [address] [phone] By: #### CDP, BMP, TROPI, TSHX ####[address] [phone] T.cardiac mass concug/LNormal<0.03[facility] on above:Result Comment: Troponin T results cannot be compared to Troponin-I results.Performed By: #### CDP, BMP, TROPI, TSHX ####[address] [phone] w/Reflex Cultureon 15-60-3192Djemwpdfakzei mass conc NegativeNormalNEGMercy Dewitt HospitalComment on above:Performed By: #### UAX ####[address] [place] [address] Bilirubin (direct)NegativeNormalCleveland Clinic South Pointe HospitalComscheurer hospital on above: Performed By: #### UAX ####[address] [place] [address] CommentMicroscopic exam not performed based on chemical results unless requested inNormalProtestant HospitalComment on above: Result Comment: original order.Performed at [address] [place] [address] [phone] By: #### UAX ####[address] [place] [address] Hemoglobin mass conc (Bld)NegativeNormalNEGProtestant HospitalComment on above: Performed By: #### UAX ####[address] [place] [address] Nitrite,UrNegativeNormalNEGProtestant HospitalComment on above:Performed By: #### UAX ####[address] [place] [address] TurbidityCLEARNormalCLEARMerSouthwest General Health CenterComment on above:Performed By: #### UAX ####[address] [place] [address] Urine, colorYELLOWNormal YELMercy Mercy Health Fairfield HospitalComment on above:Performed By: #### UAX ####[address] [place] [address] Urine, glucose presenceNegativeNormalNEGProtestant HospitalComment on above:Performed By: #### UAX ####[address] [place] [address] Urine, leukocyte esterase presenceNegativeNormalNEGProtestant HospitalComment on above:Performed By: #### UAX ####[address] [address] Urine, pH5.5 [pH]Normal 5.0-8.0Protestant HospitalComment on above:Performed By: #### UAX ####[address] [address] Urine, protein presenceNegativeNormalNEGProtestant HospitalComment on above:Performed By: #### UAX ####[address] [address] Urine, specific gravity1.702Wxsoti8.000-1.030 [facility] HospitalComment on above:Performed By: #### UAX ####[address] [address] Urobilinogen,Ur NormalNormalNORMProtestant HospitalComment on above:Performed By: #### UAX ####[address] [address] Vital Signs Date TimeVital SignValuePerforming XynsmxscoLgrbatqa70-04-5718 10:25-0500Body lssmaq816.56 cmMD Velasquez FP Complete Work Phone: [facility]02-13-2024 10:25-0500 Body mass index (BMI) [Ratio]26.7 kg/m2MD Velasquez [employer] Work Phone: [facility]02-13-2024 10:25-0500 Body ewnkrh65.76 kgMD Velasquez FP Complete Work Phone: [facility]08-22-2020 15:45-0400 BP Eeoomqbue61 mm[Hg]formerly [facility], [id number] 15:45-0400BP Ckhmejhh574 mm[Hg]formerly [facility], [id number] 08:25-0400Body Gpsugstkkjq77.01 [degF]formerly [facility], [id number] 08:25-0400 Pulse (Heart Rate)70 /minformerly [facility], [id number] 08:25-0400 Pulse Zuzgfddw64 %formerly [facility], [id number] 08:25-0400 Respiratory Rate20 /minformerly [facility], UF96-07-7980 06:15-0400BMI (Body Mass Index)25.51 kg/c6Qvmiqmyuformerly [facility], [id number] 06:15-0400Body woltgx22.4 kgformerly [facility], [id number] 15:22-5918Bsqooq841.6 cmCourTrinity Health System West Campus, [id number] 16:07-0400 Respiratory rateNOT REPORTEDRANCleveland Clinic [facility] Comment on above:Performed By: #### CDP, CP, LIP, TROPI, LIPRF, GLYHGB #### [employer] [address] [place] [address] Switch Foreman: Brandon Anaya MD08-19-2020 14:24-0400Respiratory rateNOT REPORTEDCoPike Community Hospital, [place] Encounters Encounter DateEncounter TypeCare ProviderFacilityStart: 12-29-2024 End: 25-37-1220wrdbjabvgvXovltb A Diab ([facility])-[facility] [place] [facility]ospStart: 12-29-2024 End: 57-90-8787Miwciwpq ReferredJaclyn Kimble ([facility]) -[facility]ospStart: 12-22-2024 End: 75-69-9502danfxfgnflHYTIWUniversity Hospitals Portage Medical Centertart: 75-26-8645Pvkccqdmvk and management of inpatientMUNIER NAZZALUniSelect Medical [facility] CenterStart: 08-26-2024 End: 12-95-6838Yfetmnsgkx and management of inpatientMUNIER Protestant Hospitaltart: 08-17-2024 End: 29-69-6756aaxuyacmreVzzvaai M HoyFacility:[facility] Start: 08-04-2024 End: 64-21-1698pgdonbfizwHMQQSZUniversity Hospitals TriPoint Medical Centertart: 07-22-2024 End: 43-61-5605yrdpmrubytQIJEOSFKettering Health Dayton Start: 28-96-0388rzgzjyawgbCEUML KHPremier Health Miami Valley Hospitaltart: 38-69-0890hfluhokqhkVTBKUIWMartins Ferry Hospitaltart: 06-06-2024 End: 86-74-4618weueimivvvEXSMKWLicking Memorial Hospitaltart: 06-06-2024 End: 28-09-6418kptmiuxhqbACJEQK NAEast Liverpool City Hospitaltart: 05-31-2024 End: 63-57-7489kauzvsagthOTOWQJYSt. [facility] Start: 05-20-2024 End: 50-62-0690dyleyyunbjNDOYC A PETITTINot AvailableStart: 05-20-2024 End: 36-46-1212Woewfz outpatient visit 25 minutesEmminerva Red MD Work Phone: noms SWS DERMComment on above:Other atopic dermatitis (Primary Dx); High risk medication useStart: 05-20-2024 End: 44-07-7850Dcmgid flowsheetEmminerva Red MD Work Phone: noms SWS DERMStart: 05-20-2024 End: 58-74-7693Twdaxo flowsheetEmminerva Red MD Work Phone: noms SWS DERMStart: 67-93-6899laoojzwfelKOHF HORUniversity Hospitals St. John Medical Centertart: 05-11-2024 End: 76-00-4978qabtvvlmspCBNKS AKRASelect Medical [facility], Edwin Shawtart: 62-64-7875sjuodziycrOTBTZOG ROBERTSDunlap Memorial Hospitaltart: 03-26-2024 End: 76-80-4833bbzdpwaqseEPGAR KHOURChillicothe Hospitaltart: 03-09-2024 End: 99-62-2183sjjrbleuqoKJYB CHALima City Hospitaltart: 18-99-1372oqkgefkdjjXVEG ELTATriHealth Bethesda North Hospitaltart: 35-68-0989Nyfydwfkkl and management of inpatientOMAR [facility] Centertart: 33-73-3941Wkupzxldqm and management of inpatientSHOBHA [facility] Hospitaltart: 68-20-7103Jguweixfxs and management of inpatientSHOBHA [facility] Hospitaltart: 52-66-0621Amskwqsitp and management of inpatientKIMBERLY [facility] Institutetart: 57-13-7094Kcpcoympsb and management of inpatientZAID [facility] Centertart: 25-27-0200Zcjexrurth and management of inpatientTHOMAS D NOEMercy Health West Hospitaltart: 79-00-1876Tstwcusgiu and management of inpatientZAID [facility] Centertart: 62-76-5545Iczvzqjcgf and management of inpatientZAID [facility] Hospitaltart: 41-61-2928Elasyywxfu and management of inpatientWHITNEY BEACHCleveland Clinic Children's Hospital for Rehabilitationtart: 02-02-2024 Evaluation and management of inpatientNASIR ALIDunlap Memorial Hospitaltart: 88-34-9486Dcazyfflep and management of inpatientOMAR [facility]tart: 02-02-2024 End: 99-29-5370Ksiewmwspw and management of inpatientOMAR [facility]ertart: 02-01-2024 End: 80-81-9530kmmzhuhdjiSVNHQW NAZZSt. Mary's Medical [facility] Campustart: 40-53-9442Ejcebjbapu and management of inpatientJAMIE ЕЛЕНАMARCO ANTONIOERDunlap Memorial Hospitaltart: 58-79-9449Uagguleoso and management of inpatient RYNE TURNERDunlap Memorial Hospitaltart: 43-71-7145Qmikwthnm department patient visitHIYSABELORJames [facility] Start: 92-00-0970Nnrvkpbmt department patient visitKettering Health Washington Townshiptart: 01-27-2024 End: 01-25-3013Knrerdmwij and management of inpatientOMAR HORANIDunlap Memorial Hospitaltart: 41-01-6423mxtsgvtzksOYBDJXJ [facility] Hospitaltart: 01-16-2024 End: 52-37-4361Kuiyxd flowsheetPioneer [facility] PA Work Phone: NOMS SWS DERMStart: 01-16-2024 End: 72-11-5965Xoflpv flowsheetPioneer Community Hospital Of [facility] PA Work Phone: NOMS SWS DERMStart: 01-16-2024 End: 94-09-4124Uefgrf outpatient visit [address] [place] [address] PA Work Phone: noMS SWS DERMComment on above:Other atopic dermatitis (Primary Dx)Start: 01-16-2024 End: 32-19-6479ffhukeqdpbBNYIA NORTHEIMNot AvailableStart: 12-31-2023 End: 88-83-8925nkncnvsvweSXEVD [facility] Centertart: 04-17-2023 End: 49-49-2932ksazguxgtzKN Velasquez Bunch Work Phone: [facility] Work Phone: Start: 04-17-2023 End: 56-54-0082Zxgldzv encounter procedureMD Velasquez Bunch Work Phone: [facility] Czv-Yqc-Opmcbgoa Testing Work Phone: Start: 04-08-2023 End: 13-59-5232abiprqzfnhYI Velasquez M Hoy Work Phone: [facility] Work Phone: Start: 04-08-2023 End: 45-73-7558Ljdnrgz encounter procedureMD Velasquez Hoy Work Phone: [facility] Work Phone: Start: 04-08-2023 End: 83-16-7601uskhzvkldjKT Velasquez M Hoy Work Phone: [facility] Work Phone: Start: 04-08-2023 End: 20-43-9522Aoqqrlq encounter procedureMD Velasquez Hoy Work Phone: [facility] Start: 81-49-1209fofjuhfcgsUF VELASQUEZ HOY .Facility:N6Ojazv: 05-29-2022 End: 02-39-3658mirmbggcgcMS VELASQUEZ HOY .Facility:M8Jxbfn: 03-07-2022 End: 65-92-3657ajfuqldutwNN VELASQUEZ HOY .Facility:Z3Aegvp: 02-06-2022 End: 19-73-4864iculstfcntCF VELASQUEZ HOY .Facility:T8Nqair: 04-77-0843lfipbwtndg DR VELASQUEZ HOY .Facility:M6Armyi: 10-09-2019 End: 34-95-0633Cdprhwjlgm and management of inpatientRANVIR S RATHOREMercy [facility] Laguna Beachtart: 10-09-2019 End: 57-92-9375Pqanofdnxb and management of inpatientCourtronald Mercado Work Phone: stvz CAR 2Comment on above:Abdominal aortic aneurysm (AAA) without rupture (HCC) (Primary Dx); Acute low back pain, unspecified back pain laterality, unspecified whether sciatica present; Vertigo; Nausea and vomiting, intractability of vomiting not specified, unspecified vomiting type; Hypertensive urgencyStart: 06-27-2017 End: 91-15-2939Dmhwfesyhe and management of inpatientDOUGLAS M HOYMercy [facility] Procedures DateProcedureProcedure DetailPerforming ClinicianStart: 14-07-0510Dxpkbg-up visitOMAR HORANIStart: 66-32-6231Odsoow-up visitOMAR HORANIStart: 03-26-2024 Follow-up visitOMAR HORANIStart: 75-15-0439Nprcsn-up visitOMAR HORANIStart: 38-49-7479Fthwjn-up visitOMAR HORANIStart: 42-92-1772Tnuezt-up visitOMAR MALINAANI Start: 29-66-6694Zuekz X-ray of right handMD Velasquez Bunch Work Phone: Start: 87-13-8206Tzjyi count complete auto&auto difrntl wbcRANVIR RATHOREStart: 65-47-4375Domvsfwzapxoq metabolic panelRANVIR RATHOREStart: 33-57-3363Lvejuqa bacterial quanttative colony count urineRANVIR RATHOREStart: 79-16-9715Dyfoo dip stick/tablet reagent auto microscopyRANVIR RATHOREStart: 90-48-4245Urrcpha blood reagent stripRANVIR RATHOREStart: 02-75-9747VAPTLWSIU PATIENTRANVIR RATHOREStart: 20-94-9192Omdqt dip stick/tablet reagent auto microscopyJonathan H Demeter Work Phone: Start: 18-40-7257TU CONSULT TO HOME CARE NEEDSRANVIR RATHOREStart: 25-57-5448Esfpglo blood reagent stripRanvir S Judie Work Phone: Start: 32-10-2414NPHQWLO SCANRANVIR RATHOREStart: 27-16-5831ZH CONSULT TO UROLOGYRANVIR RATHOREStart: 42-63-4419Vvzh bld gluc mntr dev cleared fda spec home useRANVIR RATHOREStart: 04-62-2530Vsejbhq blood reagent stripRANVIR RATHOREStart: 92-61-5468KSJOXNFH OXYGEN THERAPY PROTOCOL GIOVANNA RATHOREStart: 10-16-2019 End: 00-89-4291Zfoccfq blood reagent stripRanvir S Judie Work Phone: Start: 24-49-1160Jnlej count complete auto&auto difrntl wbcRANVIR RATHOREStart: 33-21-0075Pjsyxlkpmuulo metabolic panelRANVIR RATHOREStart: 42-58-5364Fryi bld gluc mntr dev cleared fda spec home useRANVIR RATHOREStart: 79-53-9660WABET METABOLIC PANEL W/ REFLEX TO MG FOR LOW K Muralikrishna Porandla Work Phone: Start: 37-97-4164Oxlzg count complete auto&auto difrntl wbcMuralikrishna Porandla Work Phone: Start: 62-93-4157AEGYUB AND OUTPUTRANVIR RATHOREStart: 73-91-5330Ipgm bld gluc mntr dev cleared fda spec home useRANVIR RATHOREStart: 47-92-3079Trhjbrt blood reagent stripRANVIR RATHOREStart: 25-67-1794Gtqu bld gluc mntr dev cleared fda spec home useRANVIR RATHOREStart: 88-98-6013Kynqmxu blood reagent stripRanvir S Judie Work Phone: Start: 13-09-4092Yofkvyl blood reagent stripRANVIR RATHOREStart: 26-61-6269IDTRAPCO CATHRANVIR RATHOREStart: 82-64-5590XLEGQIN NUTRITION SUPPLEMENTSRANVIR RATHOREStart: 46-43-2441Jhr spinal canal lumbar w/o & w/contr matrlRANVIR RATHOREStart: 44-20-8280Ngfcong blood reagent stripRanvir S Judie Work Phone: Start: 23-14-4826Jxg spinal canal lumbar w/o & w/contr matrlMuralikrishna Porandla Work Phone: Start: 04-19-9020Gronsnr blood reagent stripRANVIR RATHOREStart: 71-63-3022Lkvrhmf blood reagent stripRanvir S Judie Work Phone: Start: 73-63-2095Hqluu count complete auto&auto difrntl wbcRANVIR RATHOREStart: 72-45-2496Ccipfvnnyuons metabolic panelRANVIR RATHOREStart: 84-68-8670Zide bld gluc mntr dev cleared fda spec home useRANVIR RATHOREStart: 21-65-0671XIYVSTBN CATHRANVIR RATHOREStart: 99-58-0052XPNEW METABOLIC PANEL W/ REFLEX TO MG FOR LOW KMuralikrishna Porandla Work Phone: Start: 52-42-8036Dxtxl count complete auto&auto difrntl wbcMuralikrishna Porandla Work Phone: Start: 18-55-6197CJ CONSULT TO IV TEAMRANVIR JUDIE Start: 23-90-8640QXQDHFIM OXYGEN THERAPY PROTOCOLRANVIR RATHOREStart: 10-15-2019 Glucose blood reagent stripRANVIR RATHOREStart: 78-82-3132Oypyafy blood reagent stripRanvir S Judie Work Phone: Start: 56-92-6856Leou bld gluc mntr dev cleared fda spec home useRANVIR RATHOREStart: 09-12-2944YRTGME AND OUTPUTRANVIR JUDIE Start: 09-20-0420Wtwz bld gluc mntr dev cleared fda spec home useRANVIR JUDIE Start: 78-51-1367Vgddppx blood reagent stripRANVIR RATHOREStart: 73-92-1430Ynpu bld gluc mntr dev cleared fda spec home useRANVIR RATHOREStart: 10-14-2019 Glucose blood reagent stripRanvir S Judie Work Phone: Start: 40-89-4131HPEUTQIU CATHRANVIR RATHOREStart: 31-13-8966Tigjtpb blood reagent stripRanvir S Judie Work Phone: Start: 09-19-1621Wfqznjd blood reagent stripRANVIR RATHOREStart: 06-55-8006Xkzboty blood reagent stripRanvir S Judie Work Phone: Start: 33-80-8512Uepl bld gluc mntr dev cleared fda spec home useRANVIR RATHOREStart: 73-96-4009QSIIJRFX OXYGEN THERAPY PROTOCOL GIOVANNA RATHOREStart: 35-54-7589WKFUBLIX CATHRANVIR RATHOREStart: 10-14-2019 Antibody treponema pallidumRANVIR RATHOREStart: 70-07-3602Kgsek count complete auto&auto difrntl wbcRANVIR RATHOREStart: 18-05-4669Namlsafrhkanp metabolic panelRANVIR RATHOREStart: 00-98-7744Pcpxlda blood reagent stripRANVIR JUDIE Start: 55-81-5349Dwtj bld gluc mntr dev cleared fda spec home useRANVIR JUDIE Start: 17-55-9462QBBTB METABOLIC PANEL W/ REFLEX TO MG FOR LOW KMuralikrishna Porandla Work Phone: Start: 34-21-8487Stfvs count complete auto&auto difrntl wbcMuralikrishna Porandla Work Phone: Start: 10-14-2019T. PALLIDUM ABMuralikrishna Porandla Work Phone: Start: 56-93-4217Qrregyo blood reagent stripRanvir S Judie Work Phone: Start: 99-84-5916BQMMIJ AND OUTPUTRANVIR RATHOREStart: 95-39-7716Glps bld gluc mntr dev cleared fda spec home useRANVIR RATHOREStart: 80-51-3191MSNCTSPN CATHRANVIR RATHOREStart: 75-99-1831Evpyvmh blood reagent stripRANVIR RATHOREStart: 38-71-4791Ijkg bld gluc mntr dev cleared fda spec home useRANVIR RATHOREStart: 67-58-5398Pplepbm blood reagent stripRanvir S Judie Work Phone: Start: 78-09-5373Rwncmgr blood reagent stripRANVIR RATHOREStart: 08-31-4853Bmhczvh blood reagent stripRanvir S Judie Work Phone: Start: 66-43-3512Kdfvd of ammoniaRANVIR RATHOREStart: 69-17-2499Scgkh gases any combination ph pco2 po2 co2 aze8GVWYQE RATHOREStart: 72-54-8474KB CONSULT TO IV TEAMRANVIR RATHOREStart: 51-65-4136Mpqjjsaf mycoplsm GIOVANNA RATHOREStart: 33-83-7777Qqqqwem blood reagent stripRanvir S Judie Work Phone: Start: 58-61-3442Pbvuj of ammoniaDhrupal Mares Work Phone: Start: 95-34-4008Wguxq gases any combination ph pco2 po2 co2 wlg0Upcsbaudjxgf Edara Work Phone: Start: 23-77-5800Gmmclwtk mycoplsmLuis E Kendrick Work Phone: Start: 13-86-7436Cowm bld gluc mntr dev cleared fda spec home useRANVIR RATHOREStart: 81-01-3481RYIXBBCY OXYGEN THERAPY PROTOCOL GIOVANNA RATHOREStart: 99-96-2007Sipawmh blood reagent stripRANVIR RATHOREStart: 99-07-5654Pkwzu of magnesiumRANVIR RATHOREStart: 28-92-6982Kqhtf count complete auto&auto difrntl wbcRANVIR RATHOREStart: 12-05-8908Pkpfylfkfloik metabolic panelRANVIR RATHOREStart: 66-77-1085Qskfojt blood reagent stripRanvir S Judie Work Phone: Start: 29-48-5838Mora bld gluc mntr dev cleared fda spec home useRANVIR RATHOREStart: 20-21-2108Ndwlj of magnesiumMuralikrishna Porandla Work Phone: Start: 30-64-5368CIVOV METABOLIC PANEL W/ REFLEX TO MG FOR LOW KMuralikrishna Porandla Work Phone: Start: 90-22-6400Wydka count complete auto&auto difrntl wbcMuralikrishna Porandla Work Phone: Start: 70-45-9697ZLQCUG AND OUTPUTRANVIR RATHOREStart: 51-97-2088Mtix bld gluc mntr dev cleared fda spec home useRANVIR RATHOREStart: 13-24-1074Afpzh dip stick/tablet reagent auto microscopyRANVIR RATHOREStart: 68-04-7927Jecqqng blood reagent stripRANVIR RATHOREStart: 20-88-9693Cfrt bld gluc mntr dev cleared fda spec home useRANVIR RATHOREStart: 39-55-3386Xoqqi dip stick/tablet reagent auto microscopyMuralikrishna Yonathanandla Work Phone: Start: 09-35-7149Qcotjeq blood reagent stripRanvir S Judie Work Phone: Start: 44-71-7117Yixglln blood reagent stripRANVIR RATHOREStart: 93-09-7540ZRPA GENERALRANVIR RATHOREStart: 05-67-9707Chaowkw blood reagent stripRanvir S Judie Work Phone: Start: 81-07-1786ITPNGDN, BLOOD 1RANVIR RATHOREStart: 19-71-2562Bpvcwqt blood reagent stripRANVIR RATHOREStart: 41-41-2209Ghwwwdu blood reagent stripRanvir S Judie Work Phone: Start: 37-94-8411Giu-scan artl braydon abdl/pel/scrot&/rpr orgn comRANVIR RATHOREStart: 22-46-0008Qswd bld gluc mntr dev cleared fda spec home useRANVIR RATHOREStart: 27-14-8332Vyvdsyj blood reagent stripRANVIR JUDIE Start: 17-72-2073MVIDBJCO OXYGEN THERAPY PROTOCOLRANVIR RATHOREStart: 10-12-2019 Dup-scan artl braydon abdl/pel/scrot&/rpr orgn comMuralikrishna Porandla Work Phone: Start: 28-95-1757Wgbjl of aldosteroneRANVIR JUDIE Start: 99-37-0925Zqlop of magnesiumRANVIR RATHOREStart: 78-31-3173Ucbsx of renin GIOVANNA RATHOREStart: 54-39-3175Lzcnn count complete auto&auto difrntl wbcRANVIR RATHOREStart: 64-17-2487Ykmmomgctkkxb metabolic panelRANVIR RATHOREStart: 17-53-7700Onriyja blood reagent stripRanvir S Judie Work Phone: Start: 71-80-9100Jffnl of aldosteroneMuralikrishna Porandla Work Phone: Start: 95-48-4431Uyubh of magnesiumMuralikrishna Porandla Work Phone: Start: 17-08-9478Bomtv of reninMuralikrishna Porandla Work Phone: Start: 09-23-2488UZQOZ METABOLIC PANEL W/ REFLEX TO MG FOR LOW KMuralikrishna Porandla Work Phone: Start: 31-02-4801Uqhqp count complete auto&auto difrntl wbcMuralikrishna Porandla Work Phone: Start: 01-43-4263Bjqb bld gluc mntr dev cleared fda spec home useRANVIR RATHOREStart: 39-26-4908TLCCGU AND OUTPUTRANVIR JUDIE Start: 14-00-4740Gfjq bld gluc mntr dev cleared fda spec home useRANVIR JUDIE Start: 70-05-9695Gumsvuaikp exam chest single viewRANVIR RATHOREStart: 31-97-4322QH CONSULT TO INFECTIOUS DISEASESRANVIR RATHOREStart: 43-42-3723Cdbwn source albumin quantitative each specimenRANVIR RATHOREStart: 10-11-2019 Radiologic exam chest single viewKarim Damien Work Phone: Start: 77-05-5960Stsupzu blood reagent stripRANVIR RATHOREStart: 23-39-3682Aylr bld gluc mntr dev cleared fda spec home useRANVIR RATHOREStart: 69-62-7842RtpnriiepocmsLWSMDV RATHOREStart: 89-17-8130Giuwjvy blood reagent stripRanvir S Judie Work Phone: Start: 49-05-3123Pawxlme blood reagent stripRanvir S Judie Work Phone: Start: 20-38-7045GflsyoqlcbttdDeyhexptiikpd Porandla Work Phone: Start: 99-71-4872Tpa brain brain stem w/o w/contrast materialRANVIR RATHOREStart: 39-18-6133Aeglfdk blood reagent stripRANVIR JUDIE Start: 71-29-2258Bze brain brain stem w/o w/contrast Amelia Morelos Work Phone: Start: 62-17-7575Dbhqjle blood reagent stripRanvir S Judie Work Phone: Start: 38-14-4797Fsjs bld gluc mntr dev cleared fda spec home useRANVIR RATHOREStart: 82-13-2634Qbnvoyo blood reagent stripRANVIR RATHOREStart: 67-63-9437ODMWZEXI OXYGEN THERAPY PROTOCOLRANVIR RATHOREStart: 08-97-2593Whetnlq blood reagent stripRanvir S Judie Work Phone: Start: 74-13-7222Aubey count complete auto&auto difrntl wbcRANVIR RATHOREStart: 87-45-7454Vqpbmgapsbifa metabolic panelRANVIR RATHOREStart: 00-63-8872Ucdt bld gluc mntr dev cleared fda spec home useRANVIR RATHOREStart: 61-29-0945CYPXV METABOLIC PANEL W/ REFLEX TO MG FOR LOW K Muralichaohiginio Eduardojovita Work Phone: Start: 59-68-4601Oeoyr count complete auto&auto difrntl wbcMuralikrishnsrinath Morris Work Phone: Start: 67-12-8630JLPBWA AND OUTPUTRANVIR RATHOREStart: 36-73-6098Pzqrddr blood reagent stripRANVIR RATHOREStart: 73-14-3413Vikl bld gluc mntr dev cleared fda spec home useRANVIR RATHOREStart: 97-83-1180Mofauuz blood reagent stripRanvir S Judie Work Phone: Start: 28-21-9873Soewx sacrum & coccyx minimum 2 views GIOVANNA RATHOREStart: 02-99-0303Dazmb spine lumbosacral 2/3 viewsRANVIR JUDIE Start: 00-06-2574Hqxqytr blood reagent stripRANVIR RATHOREStart: 17-34-2048Lskj bld gluc mntr dev cleared fda spec home useRANVIR RATHOREStart: 58-80-2760Smccl sacrum & coccyx minimum 2 viewsMatt Mares Work Phone: Start: 28-92-9544Dmkoc spine lumbosacral 2/3 views Matt Mares Work Phone: Start: 13-17-2443Iqnptge blood reagent stripRanvir S Judie Work Phone: Start: 57-24-0120Joemu of lactateRANVIR RATHOREStart: 86-07-0731E-reactive proteinRANVIR RATHOREStart: 66-75-2732Ystseeuwqiwqv (pct) GIOVANNA RATHOREStart: 47-68-1920Dgzqmequjliag rate rbc automatedRANVIR JUDIE Start: 01-20-4077Iv head/brain w/o contrast materialRANVIR RATHOREStart: 36-32-8236Lx angiography head w/contrast/noncontrastRANVIR RATHOREStart: 25-53-7058Gpyli of lactateLuis Manish Erazo Work Phone: Start: 94-06-8751B-reactive proteinLuis Manish Erazo Work Phone: Start: 55-48-6654Gemgxzyrltewk (pct)Alfonso Manish Erazo Work Phone: Start: 09-50-7686Nbletkexiinhd rate rbc automatedLuis Manish Erazo Work Phone: Start: 50-95-5178Gy head/brain w/o contrast material Jimmy Chirri Work Phone: Start: 89-57-2856Lp angiography neck w/contrast/noncontrastLuis Manish Erazo Work Phone: Start: 68-55-5540Biqyodi blood reagent stripRANVIR RATHOREStart: 03-55-1788QG CONSULT TO NEUROLOGYRANVIR RATHOREStart: 10-10-2019 Glucose blood reagent stripRanvir S Judie Work Phone: Start: 24-69-9230BHAIEYAPBDHIR NURSING CARE ORDER (SPECIFY)GIOVANNA RATHOREStart: 01-41-2383Beqx bld gluc mntr dev cleared fda spec home useRANVIR RATHOREStart: 60-50-5236ZYLFWJTW OXYGEN THERAPY PROTOCOLRANVIR RATHOREStart: 56-16-0437Gkrte of magnesiumRANVIR RATHOREStart: 24-94-0339Pnhyf of thyroid stimulating hormone tshRANVIR RATHOREStart: 37-02-9624Efchw count complete auto&auto difrntl wbcRANVIR RATHOREStart: 33-40-3811Plymsibpablcf metabolic panelRANVIR RATHOREStart: 06-69-1224Kwxmg of magnesiumMuralikrishna Porandla Work Phone: Start: 71-94-7609Kfuqy of thyroid stimulating hormone tshMuralikrishna Porandla Work Phone: Start: 71-37-1041ZWEDJ METABOLIC PANEL W/ REFLEX TO MG FOR LOW KMuralikrishna Porandla Work Phone: Start: 73-43-0135Hmazn count complete auto&auto difrntl wbcMuralikrishna Porandla Work Phone: Start: 38-34-3881Nfnj bld gluc mntr dev cleared fda spec home useRANVIR RATHOREStart: 80-45-6538VUXXR WEIGHTSRANVIR RATHOREStart: 50-14-7554XYRUYV AND OUTPUTRANVIR RATHOREStart: 09-81-8481Kqpj bld gluc mntr dev cleared fda spec home useRANVIR RATHOREStart: 95-64-9713Vyxlctdvib exam abdomen 1 viewRANVIR RATHOREStart: 50-91-2015Hcqo bld gluc mntr dev cleared fda spec home useRANVIR RATHOREStart: 96-20-9518Ehozdjs blood reagent stripRANVIR JUDIE Start: 75-98-0895Gunstxnvmg exam abdomen 1 viewMuralikrishna Porandla Work Phone: Start: 14-16-9956Iotisie blood reagent stripRanvir S Judie Work Phone: Start: 06-60-2068WWWHH SIGNSRANVIR RATHOREStart: 83-28-3185Ff abdominal real time w/image limitedRANVIR RATHOREStart: 10-09-2019 MISCELLANEOUS NURSING CARE ORDER (SPECIFY)GIOVANNA RATHOREStart: 89-69-7635Spfj bld gluc mntr dev cleared fda spec home useRANVIR RATHOREStart: 02-23-0985Jx abdominal real time w/image limitedDharmachacorta Mares Work Phone: Start: 03-53-1536ZRPWZKS HEELS OFF OF BEDRANVIR RATHOREStart: 79-06-3786EOSO OF BED 60 DEGREES OR LESSRANVIR RATHOREStart: 51-56-2953XSZFTCE COMMUNICATIONRANVIR RATHOREStart: 50-73-9844VOWI PATIENTRANVIR RATHOREStart: 00-12-9586MNVDUL AND OUTPUTRANVIR RATHOREStart: 06-29-1756CL EVAL AND TREATRANVIR RATHOREStart: 00-61-6783MD EVAL AND TREATRANVIR RATHOREStart: 28-70-8478OEQG CODERANVIR RATHOREStart: 20-51-1119YEZLUUVJ OXYGEN THERAPY PROTOCOLRANVIR RATHOREStart: 01-06-8799IAEZXC PHYSICIAN (SPECIFY)GIOVANNA JUDIE Start: 99-38-7418PDAJCI FOR NO MECHANICAL VTE PROPHYLAXISRANVIR RATHOREStart: 14-81-3877QHWIF SIGNSRANVIR RATHOREStart: 49-15-3954Byvdr dip stick/tablet reagent auto microscopyRANVIR RATHOREStart: 11-20-7184Bjsfp dip stick/tablet rgnt auto w/o microscopyRANVIR RATHOREStart: 76-46-6080Ydshw dip stick/tablet reagent auto microscopyMuralikrishna Porandla Work Phone: Start: 24-23-5800Sffqt dip stick/tablet rgnt auto w/o microscopyMuralikrishna Porandla Work Phone: Start: 29-11-5049VRUJJMW STATUS (FROM ED OR OR/PROCEDURAL)GIOVANNA RATHOREStart: 32-48-2472VJ CONSULT TO INTERNAL MEDICINE GIOVANNA RATHOREStart: 84-55-9978Ts thorax w/contrast materialRANVIR RATHOREStart: 74-41-7072Thqbr of troponin quantitativeRANVIR RATHOREStart: 15-83-2290Yxkkbd bodies serum quantitativeRANVIR RATHOREStart: 77-47-0345MATOO-19RANVIR JUDIE Start: 26-09-9122Ttw routine ecg w/least 12 lds w/i&rRANVIR RATHOREStart: 52-83-7026VMD REPORTRANVIR RATHOREStart: 00-61-2815Fkrgh of lipaseRANVIR JUDIE Start: 71-57-2652Olamy count complete auto&auto difrntl wbcRANVIR RATHOREStart: 78-43-6495Qwpppapsuxyyv metabolic panelRANVIR RATHOREStart: 75-69-2775Neicscipwk glycosylated w9vLYBSZY RATHOREStart: 79-71-1960Dgmed panelRANVIR RATHOREStart: 44-34-6155Ip thorax w/contrast materialTucker J [place]ud [place] Work Phone: Start: 67-25-1260Loydt of troponin quantitativeTucker J [place] Work Phone: Start: 51-27-5985Hyamlu bodies serum quantitative Joel [place] Work Phone: Start: 62-03-2164CL CONSULT TO VASCULAR SURGERYRANVIR RATHOREStart: 58-85-4471REVSU-Julie Chandler Work Phone: Start: 89-88-5767Wxq routine ecg w/least 12 lds trcg only w/o i&rTucker J [place]ud [place] Work Phone: Start: 08-20-8132ZUZ REPORTHpf ScanningStart: 44-55-4008Upbko of lipaseTucker J [place] Work Phone: Start: 35-47-9570Pkfnh of troponin quantitativeTucker J [place] Work Phone: Start: 44-91-0686Edowc count complete auto&auto difrntl wbcTucker J [place] Work Phone: Start: 88-87-1826Xwkkwxyfomghp metabolic panelTucker J [place] Work Phone: Start: 56-49-2163Kqqbthqtfp glycosylated o0lTwcder J Melton Work Phone: Start: 16-38-9422Dzskd panelTgio Melton Work Phone: Start: 75-61-3786BJXFCIXTI PATIENTDOUGLAS HOYStart: 85-28-8850FYKUOUCU OXYGEN THERAPY PROTOCOLDOUGLAS HOYStart: 35-38-9337IZCWR METABOLIC PANEL W/ REFLEX TO MG FOR LOW KDOUGLAS HOYStart: 76-16-8863SRE WITH AUTO DIFFERENTIALDOUGLAS HOYStart: 44-23-3603WBDOAZIDYNOVDNC HOYStart: 37-12-4002OSIUGJBHGXWRQUC HOYStart: 82-56-0244CMBXU WEIGHTSDOUGLAS HOYStart: 33-82-5434EOSNDF AND OUTPUTDOUGLAS HOYStart: 13-14-3135KVYXKTNORNPRBRDRAH HOY Start: 77-15-1107ASTEFRXR TOTALDOUGLAS HOYStart: 71-00-4492KCPZIKLUJOBO HOY Start: 50-64-0087KQMLPNPSKBLYLMM HOYStart: 27-51-4627KGFHRHHFEQZNY URINEDOUGLAS HOYStart: 54-21-2018ZKNMAXVR PATIENTDOUGLAS HOYStart: 00-74-1915VULFZ METABOLIC PANEL W/ REFLEX TO MG FOR LOW KDOUGLAS HOYStart: 25-91-4636AHM WITH AUTO DIFFERENTIALDOUGLAS HOYStart: 91-18-1706Syrs tthrc r-t 2d w/wom-mode compl spec&colr dDOUGLAS HOYStart: 38-49-8560DXZN CODEDOUGLAS HOYStart: 06-28-2017 INITIATE OXYGEN THERAPY PROTOCOLDOUGLAS HOYStart: 42-36-9437ZYKDDV AND OUTPUT VELASQUEZ HOYStart: 66-73-3949CW CONSULT TO SOCIAL WORKDOUGLAS HOYStart: 93-21-5620ED EVAL AND TREATDOUGLAS HOYStart: 91-37-1484PG EVAL AND TREATDOUGLAS HOYStart: 37-10-2234UHFQGG FOR NO MECHANICAL VTE PROPHYLAXISDOUGLAS HOYStart: 95-08-1660EKGPPEM CESSATION EDUCATIONDOUGLAS HOYStart: 97-05-5495MSUGR SIGNS VELASQUEZ HOYStart: 12-87-1168LUQF CARDIACDOUGLAS HOYStart: 44-50-4135PVAAAH PHYSICIAN (SPECIFY)VELASQUEZ HOYStart: 89-85-8331XTEPM INTERMITTENT PNEUMATIC COMPRESSION DEVICEDOUGLAS HOYStart: 28-24-9415PSGOKN FOR NO CHEMICAL VTE PROPHYLAXISDOUGLAS HOYStart: 40-15-1910KGLYNHAJH MONITORINGDOUGLAS HOYStart: 22-62-8182YPBIZ SIGNSDOUGLAS HOYStart: 00-04-2364WBVJEQW STATUS (FROM ED OR OR/PROCEDURAL)VELASQUEZ HOYStart: 58-24-6288AKXXMEDRAJWELZA HOYStart: 97-09-0981IC CONSULT TO INTERNAL MEDICINEDOUGAPOLLO HOYStart: 89-53-4745AML 12-LEADDOUGLAS HOY Start: 40-20-9114KWHCH METABOLIC PANELDOUGLAS HOYStart: 13-39-6159UQG WITH AUTO DIFFERENTIALDOUGLAS HOYStart: 60-89-6993IZHLERVVGSODQMM HOYStart: 57-21-7878DBK WITH REFLEXDOUGLAS HOYStart: 81-24-8617Dnatdbsaao exam chest 2 viewsDOUGLAS HOY Start: 32-18-4381HSUYV RT REFLEX TO CULTUREDOUGLAS HOYStart: 15-67-9858ZVURXR PERIPHERAL IVDOUGLAS HOY Plan of Treatment DateCare ActivityDetailAuthorStart: 39-45-5901MilcyTwin City Hospitaltart: 44-59-6563Rihthjiy identified in Urine by CultureUrine [facility] Hospitaltart: 08-24-2024 End: 48-96-9000Ycqegwa encounter /01/2025 4:00 PM EDT Office Visit [facility] [address] [place] [address] Curry Red MD [address] [place] [address] [facility] DERMStart: 02-06-2024 End: 09-34-2469Zcwddip encounter pkdxhgabk62/13/2024 1:10 PM EST Office Visit [facility] [address] [place] [id number] Iva Ta PA [address] [place] [address] NOMDavid VARGAS DERMStart: 01-16-2024 End: 16-43-8617Czityxu encounter obczbsvke79/22/2024 11:50 AM EST Office Visit [facility] [address] [place] [address] Iva Ta PA [address] [place] [address] ArrivedNOMS SAM DERMComment on above:ArrivedStart: 63-73-1352Ahxviwzaw vaccinationInfluenza Vaccine (#1)[facility] HealthcareStart: 63-07-9203Qeqhj X-ray of right handXR hand RT min 3V*[facility] Hospital[facility]art: 36-01-6598PY Hand - right GE 3 ViewsMagruder Hospitaltart: 95-29-7823Sfxssxakbhjk Vaccine: 65+ Years (2 of 2 - PCV) Pneumococcal Vaccine: 65+ Years (2 of 2 - PCV)[facility] HealthcareStart: 10-14-2020 Creatinine measurementCreatinine monitoringUniversity [facility]als [facility]: 10-14-2020 Potassium monitoringPotassium monitoringUniversity Hospitals Beachwood Medical Center: 10-26-2019 Influenza vaccinationFlu vaccine (#1)[facility]: 44-05-6933Mrvmsd Wellness Visit (AWV)Annual Wellness Visit (AWV)[facility]: 31-24-0575Mghwubaieszf 65+ years Vaccine (1 of 1 - PPSV23)Pneumococcal 65+ years Vaccine (1 of 1 - PPSV23)[facility]: 97-66-0791Qhmkjqojz for osteoporosisDEXA (modify frequency per FRAX score)[facility]: 21-97-0445Cllripfn Vaccine (1 of 2)Shingles Vaccine (1 of 2)[place] Start: 77-26-4312QNcY/Tdap/Td vaccine (1 - Tdap)DTaP/Tdap/Td vaccine (1 - Tdap) [place], [place] End: 51-60-2746NNLAKXR, CSFALBUMIN, CSF Lab Routine One Time for 1 Occurrences starting 10/11/2019 until 10/11/2019[facility], CLARAComment on above:One Time for 1 Occurrences starting 10/11/2019 until 10/11/2019Basic Metabolic Panel w/ Reflex to MGBasic Metabolic Panel w/ Reflex to MG Lab Routine Daily until discontinued starting 10/10/2019, 7 [facility], CLARAComment on above:Daily until discontinued starting 10/10/2019, 7 completedCBC auto differentialCBC auto differential Lab Routine Daily until discontinued starting 10/10/2019, 7 [facility], [place]Comment on above:Daily until discontinued starting 10/10/2019, 7 completedCulture, Blood [place] End: 86-61-5756Fkcvbkm, UrineCulture, Urine Microbiology Routine One Time for 1 Occurrences starting 10/16/2019 until 10/16/2019[facility], CLARAComment on above:One Time for 1 Occurrences starting 10/16/2019 until 10/16/2019Culture, UrineCulture, Urine Microbiology Sunquest Label Print 10/16/2019 1:08 PM EDT [facility], KYNebulizer therapyHHN Treatment Respiratory Care Routine As Needed until discontinued starting 10/11/2019[facility], CLARAComment on above:As Needed until discontinued starting 10/11/2019Oxygen therapy [Minimum Data Set]Initiate Oxygen Therapy Protocol Respiratory Care Routine Daily until discontinued starting 10/09/2019[facility], CLARAComment on above:Daily until discontinued starting 10/09/2019POCT GlucoseTrumbull Memorial Hospital, CLRAAComment on above:As Needed until discontinued starting 10/09/20194X Daily (AC & HS) until discontinued starting 10/09/2019 Immunizations Immunization DateImmunizationNotesCare OjviamxdXkdeczak48-68-3278LKFZR-51 bHPQ- 5860 ([facility] [place]MD Velasquez Bunch Work Phone: [facility]02-26-2021COVID-19 mRNA-127 (Moderna)MD Velasquez Bunch Work Phone: [facility]01-29-2021COVID-19 mRNA127 (Moderna)MD Velasquez Bunch Work Phone: [facility]10-05-2020influenza virus vaccine, unspecified formulationMercy Health St. [facility] Hospit[facility] KIMBERLY Work Phone: [facility] Payers DatePayer CategoryPayerPolicy [id number] (Managed Care) [id number] [id number] [id number] [id number] 1960Self-pay [id number] [id number] 2.0.1.070393.3.57[id number] 2.0.1.336590.3.57[id number] 2.16840.1.892817.3.57[id number] 2.16840.1.223476.3.57[id number] 2.16840.1.903918.3.57[id number] 2.16840.1.802631.3.57[id number] 2.16840.1.15[id number] 2.16.840.1.045934.3.579.2.531 [id number] 2.16.840.1.024549.3.579.2.531 Social History DateTypeDetailFacilityStart: 92-99-0978Jkcscge smoking status NHISNever smoker [place], [place]: 10[place]09-2019 End: 65-69-9461Usuceyp use and exposureNever usedChe[place], [place]Start: 10-44-8451Vbfzukf intakeCurrent non-drinker of alcohol (finding)[facility]: 32-54-8646Uhs Assigned At BirthNot on fileChe[place], [place] Exposure to SARS-CoV-2 (event)Not sureUniversity Hospitals Beachwood Medical Center: 48-60-0817Umy Assigned At BirthFeAshtabula County Medical Centertart: 04-17-2023 End: 81-68-2022Tnrqzaz smoking status NHISEx-smoker (finding)[facility] CenterHistory of tobacco useCurrent smokerNOMS HealthcareHistory of tobacco useCigarette SmokerNOMS HealthcareStart: 04-17-2023 End: 28-61-0143Fqgzxar of Social functionNOMS HealthcareStart: 04-17-2023 End: 28-66-2697Uryhuep use panelNOUT HealthcareStart: 81-09-3347Nsmycae Comment Last smoked: 10-15 yearsNOMS HealthcareSexFemale (finding)[facility] Clinical Notes 05-18-2020 to 12-22-2024 Note Date & HrhnTctfYzbmrrzh13-39-3082 NoteUnDunlap [facility] Hospital 08-30-2024 NoteRECEIVED REFERRAL FOR PATIENT FOR GALLBLADDER COLIC, CALLED PATIENT WHO STATED SHE IS GOING TO TALK TO PCP AND WOULD LIKE TO HAVE THIS DONE CLOSER TO HOME. [facility]07-04-2025 NoteUnDunlap Memorial Hospital07-04-2025 NoteUnDunlap [facility] Hospital07-04-[address] [facility]06-25-2025 NoteSpoke to patient regarding vascular procedure- Patient is scheduled for 08/26/24 @ 1pm with an arrival time of 11am- preop labs entered. Patient educated on medication holds and lab work needing completed prior to OR. Patient verbalized understanding.[facility]06-12-2025 NoteUnDunlap Memorial Hospital06-11-2025 [facility]UnDun[facility] 08-04-2024 NoteUnDun[facility]04-25-2025 NoteUnDun[facility]04-14-2025 NoteUn[facility] 05-20-2024 History of Present illness Narrative* [...] be refrigerated. Medication will be sent to [facility], contact information provided to patient, instructed [...] 3 month follow up documented in this encounterBoone Hospital CenterGglqjjegnw44-91-4178 NotePatient called entry writer direct line ([phone]), however calling to reach [facility] Nephrology. Door Paneler provided patient with phone number to reach Nephrology ([phone]).[facility]03-18-2025 NoteUnDunlap Memorial Hospital02-07-2025 NoteUnDun[facility] 03-26-[address] [facility]01-14-[address] [facility]12-23-2024 NoteUnDun[facility] Hospital 02-12-2024 NoteUnDunlap Memorial Hospital12-19-[address] [facility]12-19-2024 NoteOccupational Therapy Name: Shayy Maynard Date of : 1945 Today's Date: 02/12/24 Pt is unable to be seen for therapy at this time secondary to Discharging !@ 1030 Check No Charge Time attempted: 0957UnDunlap Memorial Hospital12-18-2024 NoteUnDunlap Memorial Hospital12-18-[address] [facility] 02-11-2024 NoteUnDunlap Memorial Hospital12-18-2024 NoteUnDunlap [facility] Hospital12-17-2024 NoteUn[facility] 02-10-2024 NoteUnDun[facility]12-17-2024 NoteUnDun[facility]12-17-2024 NoteUn[facility] 02-10-2024 NoteUnDun[facility]12-17-2024 NoteUnDun[facility]12-17-2024 NoteUn[facility] 02-10-2024 NoteUnDun[facility]12-16-2024 NoteUnDun[facility] Hospital12-16-[address] [facility] 02-09-2024 NoteUnDunlap [facility] Hospital12-16-2024 NoteUnDun[facility] Hospital12-16-2024 NoteUn[facility] 02-08-2024 NoteUnDun[facility] Hospital12-15-2024 NoteUnDunlap [facility] Hospital12-15-[address] [facility] 02-08-[address] [facility]12-15-[address] [facility]12-14-[address] [facility] 02-07-[address] [facility]12-14-2024 NoteUnDunlap Memorial Hospital12-13-2024 NoteUn[facility] 02-06-2024 NoteUnDun[facility]12-13-2024 NoteUnDun[facility]12-13-2024 NoteUn[facility] 02-06-2024 NoteUnDun[facility]12-13-2024 NoteUnDun[facility]12-12-2024 NoteUn[facility] 02-05-2024 NoteUnDunlap [facility] Hospital12-12-2024 NoteUnDunlap Memorial Hospital12-12-[address] [facility] 02-05-[address] [facility]12-11-[address] [facility]12-11-[address] [facility] 02-04-2024 NoteBrief follow up with RN. No family at bedside. Patient is sleeping. Patient is scheduled for angiogram today. Once procedure/test completed and patient medically cleared therapy will return for eval and recommendations. SW following.[facility]12-11-[address] [facility]12-11-[address] [facility]12-11-[address] [facility]12-11-[address] [facility]12-10-[address] [facility]12-10-[address] [facility]12-10-[address] [facility]12-10-2024 NoteOccupational Therapy Name: Shayy Maynard Date of : 1945 Today's Date: 02/03/24 Pt is unable to be seen for therapy at this time secondary to Medically unstable today per nsg . Check No Charge Time attempted: 1113UnDunlap Memorial Hospital12-10-[address] [facility]12-10-[address] [facility] 02-03-[address] [facility]12-10-[address] [facility]12-09-2024 NoteCase was discussed with the KEN on 02/02/2024. I agree with the history, physical, assessment, and plan of care. I discussed the findings and therapeutic plan. I agree with the documentation, except for any updates below. Daniela Van MDMercy Health St. Charles Hospital12-09-[address] [facility]12-07-[address] [facility] 01-31-[address] [facility]12-07-[address] [facility]12-06-[address] [facility] 01-30-2024 NoteUnDunlap Memorial Hospital12-06-2024 NoteUnDunlap Memorial Hospital12-06-[address] [facility] 01-30-[address] [facility]12-06-[address] [facility]12-05-[address] [facility] 01-29-2024 NoteUnDunlap Memorial Hospital12-05-2024 NoteUnDunlap Memorial Hospital12-05-[address] [facility] 01-29-[address] [facility]12-04-2024 [id number]: PEDAL PULSES: PRE PROCEDURE RIGHT: PT/DOPPLER; DP/DOPPLER LEFT: PT/DOPPLER; DP/DOPPLERMercy Health St. [facility]12-04-2024 Note 1701: FAMILY UPDATED ON PROGRESS OF PROCEDUREMercy Health St. [facility] 01-28-[address] [facility]12-04-[address] [facility]12-04-2024 NotePeripheral IV Date/Time: 01/28/2024 4:39 PM Inserted by: Rick Brown MD Placement Needle size: 14 G Laterality: right Location: hand Local anesthetic: none Site prep: alcohol Technique: anatomical landmarks Attempts: 2[facility]12-04-[address] [facility]12-04-[address] [facility] 01-28-[address] [facility]12-04-2024 NotePhysical Therapy Planned endovascular AAA repair today per RN. Will defer evaluation at this time and follow up post-operatively as appropriate. Peter Cartagena PT, DPTUnDunlap Memorial Hospital12-04-2024 Note Occupational Therapy Name: Shayy Maynard Date of : 1945 Today's Date: 01/28/24 Pt is unable to be seen for therapy at this time secondary to planned AAA sx today/nsg request to hold . Check No Charge Time attempted: 730UnDunlap Memorial Hospital12-03-2024 NoteCase was discussed with the KEN on 01/27/2024. I agree with the history, physical, assessment, and plan of care. I discussed the findings and therapeutic plan. I agree with the documentation, except for any updates below. Scarlett Sharpe MDUnDunlap Memorial Hospital12-03-2024 NoteUnDunlap Memorial Hospital12-03-2024 NoteUnDunlap [facility] 01-16-2024 History of Present illness Narrative* [...] Next Visit: 4-6 weeks documented in this encounterBoone Hospital CenterEimslntezu81-14-4415 [facility]04-22-2021 Note [id number]:127[facility] 06-15-2020 NoteCystoscopy with Urethral Dilation ? [...] if you have a fever over 100 degreesOhio [facility]03-25-2021 [id number]:127[facility]03-25-2021 NoteCystoscopy with Urethral Dilation ? Voiding [...] if you have a fever over 100 degreesCommunity Healther [facility] CenterEvaluation note* Diagnosis Onset Date Resolution Status Trigger finger, right middle finger acuteTrigger finger, right ring fingeracute [facility] Work Phone: Evaluation note* Diagnosis Other atopic dermatitis- Primary documented in this encounter [facility] HealthcareEvaluation note* Diagnosis Other atopic dermatitis- Primary High risk medication use documented in this encounter [facility] HealthcareEvaluation noteNo assessment information availableWright-Patterson Medical Center Work Phone: Reason for referral (narrative)No reason for referral information availableWright-Patterson Medical Center Work Phone: Summary Purpose Family History No [...] Contact Information Primary Emergency Contact: Deep Maynard [facility] Relation: Spouse Past Surgical History: [...] Assisted Dressing Assisted Toileting Assisted Feeding Assisted Lard Tub Washer Independent Med Delivery whole Wound Care Documentation [...] Readmission: 12 Discharging to Facility/ Agency Name: [facility] Address: Phone: Fax: Dialysis Facility (if applicable) Name: Address: Dialysis Schedule: Phone: Fax: Shank Carrier/Pattern Hanger signature: EDT ICIAN SECTION Prognosis: Fair Condition [...] size monitoring with PCP F/u urologist at [facility] in 1 week for lowe and void trial Take docusate 100 mg daily and miralax 17 g daily. documented in this encounter History of Present Illness * Tami Ni RN - 10/16/2019 5:51 PM EDT Door Paneler discharged patient @ 1745 by wheelchair off unit with . Door Paneler went over all discharge paperwork and patient [...] as a transfer from [facility] 10/09/2019 where she presented with [...] to ensure the accuracy of this automated toxicology teacher, some errors in toxicology teacher may have occurred. * Bruce Pelletier MD - 10/16/2019 11:07 AM EDT [facility] Internal Medicine Teaching Residency Program Inpatient Daily Progress Note Patient: Shayy Maynard Date of : 1945 Acct: [id number] Room: Admit date: 10/09/2019 Today's date: 10/16/19 [...] of COPD, primary hypertension was transferred from [facility] for management of infrarenal abdominal aortic aneurysm and for vascular consultation. States she started having lower back pain since . Describes the pain as constant, sharp, 10out of 10 in intensity associated with nausea. Patient went to the emergency department at [facility] to have hypertensive emergency with systolics above 200 and d-dimer was elevated. CT abdomen was done which showed 3.5 infrarenal aortic aneurysm, started on Cardene drip and pain medications we re given. Patient was transferred to [facility] found to be hypoxic in upper [...] Q4H PRN hydrALAZINE, 10 mg, Q6H PRN pxwlgbkhdq-tuzveiclxtfzn-zjnpzfhv, 1 tablet, Q4H PRN sodium chloride flush, [...] Dwayne Hanson MD Internal Medicine Resident, PGY-1 [facility]; [place], [place] 10/16/2019, 11:07 AM I have discussed [...] 9:31 AM EDT [facility] - Progress Note Today's Date and [...] culture. Medical Decision Making/Summary/Discussion:10/16/2019 Infection Control Recommendations [place] Precautions Antimicrobial Stewardship Recommendations Discontinuation of therapy [...] HISTORY: Patient transferred from [facility] on 10-09-19 because of low back pain and findings of an infrarenal abdominal aortic aneurysm. Developed onset of back pain on 10-07-19, associated with nausea. She was evaluated at [facility] and found to have a hypertensive emergency with systolic pressures over [address] showed a 3.5 cm infrarenal aortic aneurysm. Her BP was controlled with Cardene drip and the patient was transferred to [facility]. At [facility] patient had signs of hypoxia, [...] file Gets together: Not on file Attends islam service: Not on file Active member of [...] Initial FINDINGS: CTA NECK: AORTIC ARCH/ARCH VESSELS: Djje-fk-lwmwfdqq atherosclerotic plaque at the arch arch and [...] No acute pulmonary process. Emphysema. Medical Decision Mngshr-Exldyeeq-Htxti: 10/15/2019 12:10 AM - PrietoBlanco nicolas Incoming Lab Results From [facility] Specimen Information: Blood Component Collected Lab Specimen Description 10/12/2019 2:17 PM [facility] .BLOOD Special Requests 10/12/2019 2:17 PM [facility] back lt arm 3ml Culture 10/12/2019 2:17 PM [facility] NO GROWTH 3 DAYS Medical Decision Making-Other: Note: Labs, medications, radiologic studies were reviewed with personal review of films Large amounts of data were reviewed Discussed with nursing Staff, marine air ground task force planners Infection Control and Prevention measures reviewed All [...] Patel RN - 10/16/2019 6:15 AM EDT Door Paneler bladder scanned patient and bladder scan shows 554 mL, entry writer straight cath patient and was only [...] loss Fluid Accumulation: 1 - Mild Extremities Triple Drum Operator Strength: Not Performed Estimated Daily Nutrient Needs: Energy (kcal): 1.3-1.4 ~> 9139-3057 kcals/d; Weight Used for Energy Requirements: Admission Protein (g): 1.2-1.4 ~> 65-76 gms/d; Weight Used for Protein Requirements: [place] Nutrition Related Findings: Na 131 Wounds: None Current Nutrition Therapies: DIET GENERAL; Anthropometric Measures: Height: 5' 4 (162.6 cm) Current Body Weight: 154 lb (69.9 kg) Admission Body Weight: 154 lb (69.9 kg) Usual Body Weight: 160 lb (72.6 kg)(per pt's ) [place] Body Weight: 120 lbs; % [place] Body Weight 128.3 % BMI: 26.4 BMI [...] Discharge Planning: Too soon to determine Contact: [phone] * Dwayne Hanson MD - 10/15/2019 3:09 PM EDT [facility] Internal Medicine Teaching Residency Program Inpatient Daily Progress Note Patient: Shayy Maynrad Date of : 1945 Acct: [id number] Room: Admit date: 10/09/2019 Today's date: 10/15/19 [...] of COPD, primary hypertension was transferred from [facility] for management of infrarenal abdominal aortic aneurysm and for vascular consultation. States she started having lower back pain since . Describes the pain as constant, sharp, 10out of 10 in intensity associated with nausea. Patient went to the emergency department at [facility] to have hypertensive emergency with systolics above 200 and d-dimer was elevated. CT abdomen was done which showed 3.5 infrarenal aortic aneurysm, started on Cardene drip and pain medications we re given. Patient was transferred to [facility] found to be hypoxic in upper [...] Q4H PRN hydrALAZINE, 10 mg, Q6H PRN lhfusexcku-bypmvmvjlpvmo-skedngvd, 1 tablet, Q4H PRN sodium chloride flush, [...] Dwayne Hanson MD Internal Medicine Resident, PGY-1 [facility]; [place], [place] 10/15/2019, 3:09 PM Associated attestation - [...] - 10/15/2019 3:09 PM EDT Occupational Therapy [facility] Occupational Therapy Not Seen Note DATE: 10/15/2019 [...] appropriate. Winifred Foster, OT/S * Sho Tierney, SENIOR LINUX ENGINEER - 10/15/2019 1:55 PM EDT Physical Therapy Facility/Department: [facility] 2 Daily Treatment Note NAME: Shayy Maynard [...] No Restraints: all rail up when SENIOR LINUX ENGINEER left, okay with pt Therapy Time Individual Concurrent Group Co-treatment Time In 1326 Time Out 1342 Minutes 16 Timed Code Treatment Minutes: 16 Minutes Sho Tierney PTA * Willie Garcia, FLAQUITO - SUPERVISOR FRAME ASSEMBLY - 10/15/2019 10:38 AM EDT Neurology Nurse [...] as a transfer from [facility] 10/09/2019 where she presented with [...] to ensure the accuracy of this automated toxicology teacher, some errors in toxicology teacher may have occurred. * Sailaja Durán RN - 10/15/2019 9:00 AM EDT Pt straight cathed for 850 cc clear yellow urine. Tolerated well. Will continue to monitor. * Alfonso Kendrick MD - 10/15/2019 8:38 AM EDT [facility] - Progress Note Today's Date and [...] antibiotics Medical Decision Making/Summary/Discussion:10/15/2019 Infection Control Recommendations [place] Precautions Antimicrobial Stewardship Recommendations Discontinuation of therapy [...] HISTORY: Patient transferred from [facility] on 10-09-19 because of low back pain and findings of an infrarenal abdominal aortic aneurysm. Developed onset of back pain on 10-07-19, associated with nausea. She was evaluated at [facility] and found to have a hypertensive emergency with systolic pressures over [address] showed a 3.5 cm infrarenal aortic aneurysm. Her BP was controlled with Cardene drip and the patient was transferred to [facility]. At [facility] patient had signs of hypoxia, [...] file Gets together: Not on file Attends islam service: Not on file Active member of [...] Initial FINDINGS: CTA NECK: AORTIC ARCH/ARCH VESSELS: Ojib-qa-byqpntqn atherosclerotic plaque at the arch arch and [...] No acute pulmonary process. Emphysema. Medical Decision Cruagg-Pcbuimdh-Hhkgx: 10/15/2019 12:10 AM - Prieto, Blanco Incoming Lab Results From [facility] Specimen Information: Blood Component Collected Lab Specimen Description 10/12/2019 2:17 PM [facility] .BLOOD Special Requests 10/12/2019 2:17 PM [facility] [employer] [facility] back lt arm 3ml Culture 10/12/2019 2:17 PM [facility] NO GROWTH 3 DAYS Medical Decision Making-Other: Note: Labs, medications, radiologic studies were reviewed with personal review of films Large amounts of data were reviewed Discussed with nursing Staff, marine air ground task force planners Infection Control and Prevention measures reviewed All [...] Hanson MD - 10/14/2019 1:29 PM EDT [facility] Internal Medicine Teaching Residency Program Inpatient Daily Progress Note Patient: Shayy Maynard Date of : 1945 Acct: [id number] Room: Admit date: 10/09/2019 Today's date: 10/14/19 [...] of COPD, primary hypertension was transferred from [facility] for management of infrarenal abdominal aortic aneurysm and for vascular consultation. States she started having lower back pain since . Describes the pain as constant, sharp, 10out of 10 in intensity associated with nausea. Patient went to the emergency department at [facility] to have hypertensive emergency with systolics above 200 and d-dimer was elevated. CT abdomen was done which showed 3.5 infrarenal aortic aneurysm, started on Cardene drip and pain medications we re given. Patient was transferred to [facility] found to be hypoxic in upper [...] Q4H PRN hydrALAZINE, 10 mg, Q6H PRN dbbuludilk-jgdyflpzqaopw-xobqixql, 1 tablet, Q4H PRN sodium chloride flush, [...] Dwayne Hanson MD Internal Medicine Resident, PGY-1 [facility]; [place], [place] 10/14/2019, 1:29 PM Associated attestation - [...] by Bruce Pelletier MD * Willie Garcia, HELICOPTER CREW CHIEF - SUPERVISOR FRAME ASSEMBLY - 10/14/2019 11:22 AM EDT Neurology Nurse [...] as a transfer from [facility] 10/09/2019 where she presented with [...] to ensure the accuracy of this automated toxicology teacher, some errors in toxicology teacher may have occurred. * Alfonso Kendrick MD - 10/14/2019 10:10 AM EDT [facility] - Progress Note Today's Date and [...] antibiotics Medical Decision Making/Summary/Discussion:10/14/2019 Infection Control Recommendations [place] Precautions Antimicrobial Stewardship Recommendations Discontinuation of therapy [...] HISTORY: Patient transferred from [facility] on 10-09-19 because of low back pain and findings of an infrarenal abdominal aortic aneurysm. Developed onset of back pain on 10-07-19, associated with nausea. She was evaluated at [place] [facility] and found to have a hypertensive emergency with systolic pressures over [address] showed a 3.5 cm infrarenal aortic aneurysm. Her BP was controlled with Cardene drip and the patient was transferred to [facility]. At [facility] patient had signs of hypoxia, [...] file Gets together: Not on file Attends islam service: Not on file Active member of [...] Initial FINDINGS: CTA NECK: AORTIC ARCH/ARCH VESSELS: Dzlt-bb-ayanoadw atherosclerotic plaque at the arch arch and [...] No acute pulmonary process. Emphysema. Medical Decision Wdwomh-Nutqzkyk-Ssuit: Medical Decision Making-Other: Note: Labs, medications, radiologic studies were reviewed with personal review of films Large amounts of data were reviewed Discussed with nursing Staff, marine air ground task force planners Infection Control and Prevention measures reviewed All [...] Ferris RN - 10/13/2019 10:40 PM EDT Door Paneler contacted internal med regarding pt complaining of lower abdominal pain. States she has to void but is unable to. Bladder scanned her just now and >999. New order for one time straight cath. Straight cath completed at 2315. 900ml clear, yellow urine out with 63ml residual. Will continue to monitor. 0430- Door Paneler contacted internal med regarding pt unable to [...] Bowel sounds active. * Linda Adhikari, SENIOR LINUX ENGINEER - 10/13/2019 4:16 PM EDT Physical Therapy Facility/Department: [facility] [employer] 2 Daily Treatment Note NAME: Shayy Maynard [...] Hanson MD - 10/13/2019 9:30 AM EDT [facility] Internal Medicine Teaching Residency Program Inpatient Daily Progress Note Patient: Shayy Maynard Date of : 1945 Acct: [id number] Room: Admit date: 10/09/2019 Today's date: 10/13/19 Number of days in the hospital: 4 SUBJECTIVE Admitting Diagnosis: Aneurysm of infrarenal abdominal aorta (HCC) CC: Midline Lower Back Pain Pt examined at bedside. Chart & results reviewed. BP increased overnight - In Home Nanny Audio Video Repairer gave Norvasc and started IV Hydralazine early [...] of COPD, primary hypertension was transferred from [facility] for management of infrarenal abdominal aortic aneurysm and for vascular consultation. States she started having lower back pain since . Describes the pain as constant, sharp, 10out of 10 in intensity associated with nausea. Patient went to the emergency department at [facility] to have hypertensive emergency with systolics above 200 and d-dimer was elevated. CT abdomen was done which showed 3.5 infrarenal aortic aneurysm, started on Cardene drip and pain medications we re given. Patient was transferred to [facility] found to be hypoxic in upper [...] Q4H PRN hydrALAZINE, 10 mg, Q6H PRN ejdytplmlm-tvykwctyodhli-grqkivot, 1 tablet, Q4H PRN sodium chloride flush, [...] Dwayne Hanson MD Internal Medicine Resident, PGY-1 [facility]; [place], [place] 10/13/2019, 9:31 AM Associated attestation - [...] problems. * Overall course ; show no record changer tester time. Headache is improved Blood pressure improved Ultrasound renal duplex, concerning for unilateral renal artery stenosis Patient very sleepy Has tenderness in lower back X-ray lumbar spine done at the time of admission, concerning for possible fracture Ordering MRI lumbar spine Electronically signed by Bruce Pelletier MD * Viry Morelos, FLAQUITO - SUPERVISOR FRAME ASSEMBLY - 10/13/2019 8:44 AM EDT NEUROLOGY INPATIENT [...] negative for acute changes -IV Depacon 500mg I3retje x3 doses -Continued blood pressure management as [...] to ensure the accuracy of this automated toxicology teacher, some errors in toxicology teacher may have occurred. * Alfonso Kendrick MD - 10/13/2019 7:57 AM EDT [facility] - Progress Note Today's Date and Time: 10/13/2019, 7:57 AM Impression : Fever, etiology to be determined Intermittent Headaches, most likely side effect of the various medications being given for control of HTN. No apparent meningitis Low back pain Aneurysm infrarenal abdominal aorta Centrilobular emphysema Allergy to quinolones, sulfa Recommendations: Monitor off antibiotics Medical Decision Making/Summary/Discussion:10/13/2019 Infection Control Recommendations [place] Precautions Antimicrobial Stewardship Recommendations Discontinuation of therapy [...] HISTORY: Patient transferred from [facility] on 10-09-19 because of low back pain and findings of an infrarenal abdominal aortic aneurysm. Developed onset of back pain on 10-07-19, associated with nausea. She was evaluated at [place] [facility] and found to have a hypertensive emergency with systolic pressures over [address] showed a 3.5 cm infrarenal aortic aneurysm. Her BP was controlled with Cardene drip and the patient was transferred to [facility]. At [facility] patient had signs of hypoxia, [...] file Gets together: Not on file Attends islam service: Not on file Active member of [...] Initial FINDINGS: CTA NECK: AORTIC ARCH/ARCH VESSELS: Udwb-az-yuathpnq atherosclerotic plaque at the arch arch and [...] No acute pulmonary process. Emphysema. Medical Decision Vyoxlf-Nmegucwv-Strig: Medical Decision Making-Other: Note: Labs, medications, radiologic studies were reviewed with personal review of films Large amounts of data were reviewed Discussed with nursing Staff, marine air ground task force planners Infection Control and Prevention measures reviewed All prior entries were reviewed Administer medications as ordered Prognosis: Guarded Discharge planning reviewed Follow up as outpatient. Thank you for allowing us to participate in the care of this patient. Please call with questions. Dickson Hutchinson DPM Pager: - Office: * Divina Ferris RN - 10/13/2019 3:00 AM EDT Door Paneler contacted internal med regarding pt blood pressure. [...] administer. New order for PO 10mg norvasc. Door Paneler will continue to monitor BP and pain. * Alfonso Kendrick MD - 10/12/2019 4:32 PM EDT [facility] - Progress Note Today's Date and Time: 10/12/2019, 4:32 PM Impression : Fever, etiology to be determined Intermittent Headaches, most likely side effect of the various medications being given for control of HTN. No apparent meningitis Low back pain Aneurysm infrarenal abdominal aorta Centrilobular emphysema Allergy to quinolones, sulfa Recommendations: Monitor off antibiotics Blood, urine cultures Medical Decision Making/Summary/Discussion:10/12/2019 Infection Control Recommendations [place] Precautions Antimicrobial Stewardship Recommendations Discontinuation of therapy [...] HISTORY: Patient transferred from [facility] on 10-09-19 because of low back pain and findings of an infrarenal abdominal aortic aneurysm. Developed onset of back pain on 10-07-19, associated with nausea. She was evaluated at [place] [facility] and found to have a hypertensive emergency with systolic pressures over [address] showed a 3.5 cm infrarenal aortic aneurysm. Her BP was controlled with Cardene drip and the patient was transferred to [facility]. At [facility] patient had signs of hypoxia, [...] file Gets together: Not on file Attends islam service: Not on file Active member of [...] Initial FINDINGS: CTA NECK: AORTIC ARCH/ARCH VESSELS: Zyqv-ei-tituzsxf atherosclerotic plaque at the arch arch and [...] No acute pulmonary process. Emphysema. 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 Thank you for allowing us to participate in the care of this patient. Please call with questions. Alfonso Kendrick MD Pager: - Office: * Malissa Anderson, SENIOR LINUX ENGINEER - 10/12/2019 2:55 PM EDT Physical [...] palliative care. No further needs. Malissa Anderson SENIOR LINUX ENGINEER * Montserrat Finnegan OTA - 10/12/2019 2:26 PM EDT Occupational Therapy Not Seen Note DATE: 10/12/2019 Name: Shayy Maynard : 1945 Patient not available for Occupational Therapy due to: RN cx d/t pt not feeling well and has a fever. Next Scheduled Treatment: 10/13/2019 * Denys Morris MD - 10/12/2019 1:53 PM EDT [facility] Internal Medicine Teaching Residency Program Inpatient Daily Progress Note Patient: Shayy Maynard Date of : 1945 Acct: [id number] Room: Admit date: 10/09/2019 Today's date: 10/12/19 [...] Q4H PRN hydrALAZINE, 10 mg, Q6H PRN dimfhplgrs-cfpvilefgudan-bwxfuctt, 1 tablet, Q4H PRN sodium chloride flush, [...] Denys Morris MD Internal Medicine Resident, PGY-3 [facility]; [place], [place] 10/12/2019, 1:53 PM * Bruce Pelletier MD - 10/12/2019 1:07 PM EDT Patient seen and examined Little sleepy, clonidine discontinued Hypertension controlled Headache improved MRI brain reviewed concerning for meningioma Work-up for secondary hypertension progress * Viry Morelos, FLAQUITO - SUPERVISOR FRAME ASSEMBLY - 10/12/2019 6:51 AM EDT NEUROLOGY INPATIENT [...] to ensure the accuracy of this automated toxicology teacher, some errors in toxicology teacher may have occurred. * Divina Ferris RN - 10/11/2019 10:20 PM EDT Door Paneler contacted internal med regarding pt headache of 3. Pt has IV toradol and reglan ordered. Pt is alert and oriented x2. Door Paneler instructed to hold IV toradol and reglan and to administer PRN tylenol for the headache. Will continue to monitor. * Divina Ferris RN - 10/11/2019 10:20 PM EDT Door Paneler contacted internal med regarding blood pressure 161/62 and temp of 99.9 after administering scheduled clonidine and lopressor. Pt rating headache 05/03. Door Paneler instructed to hold scheduled IV toradol and reglan. 0435- Door Paneler contacted internal med regarding BP. Door Paneler unable to keep SBP <160. Door Paneler administered PRN IV hydralazine at 2315 for a pressure in the 170s, pressure went to the 160s then back up.IV labetalol administered at 0315 for SBP in the low 180s. Pressure still in the 170s. No new orders at this time. Door Paneler instructed to continue to monitor. 0530- IV hydralazine and PO fioricet administered. No new orders at this time. Will continue to monitor BP. * Divina Ferris RN - 10/11/2019 10:15 PM EDT Door Paneler received call from Dr. Kendrick regarding pt [...] Hanson MD - 10/11/2019 2:46 PM EDT [facility] Internal Medicine Teaching Residency Program Inpatient Daily Progress Note Patient: Shayy Maynard Date of : 1945 Acct: [id number] Room: Admit date: 10/09/2019 Today's date: 10/11/19 [...] of COPD, primary hypertension was transferred from [facility] for management of infrarenal abdominal aortic aneurysm and for vascular consultation. States she started having lower back pain since . Describes the pain as constant, sharp, 10out of 10 in intensity associated with nausea. Patient went to the emergency department at [facility] to have hypertensive emergency with systolics above 200 and d-dimer was elevated. CT abdomen was done which showed 3.5 infrarenal aortic aneurysm, started on Cardene drip and pain medications we re given. Patient was transferred to [facility] found to be hypoxic in upper [...] Q4H PRN hydrALAZINE, 10 mg, Q6H PRN wzjzcabckm-uvmaeamfgbfai-peboanrv, 1 tablet, Q4H PRN sodium chloride flush, [...] Dwayne Hanson MD Internal Medicine Resident, PGY-1 [facility]; [place], [place] 10/11/2019, 2:46 PM * Bruce Pelletier [...] Assistance: Independent Transfer Assistance: Independent Active Medical Social Consultant: Yes Occupation: Retired Additional Comments: pt reported [...] 10/11/2019 12:17 PM EDT Physical Therapy Facility/Department: [place] [id number] Initial Assessment NAME: Shayy Maynard : 1945 [...] Assistance: Independent Transfer Assistance: Independent Active Medical Social Consultant: Yes Occupation: Retired Additional Comments: pt reported [...] Orders received. * Viry Morelos, FLAQUITO - SUPERVISOR FRAME ASSEMBLY - 10/11/2019 7:24 AM EDT NEUROLOGY INPATIENT [...] of Toradol 15mg, Reglan 5mg, Benadryl 12.5mg [id number] x3 -Continued blood pressure management as you are doing -May consider LP through IR for persistent headache -We will follow Please note that this note was generated using a voice recognition dictation software. Although every effort was made to ensure the accuracy of this automated toxicology teacher, some errors in toxicology teacher may have occurred. * Marely Guardado RN - 10/10/2019 9:18 PM EDT Perfect served stone polisher intermed: Patient is due to get 100mg [...] Hanson MD - 10/10/2019 11:58 AM EDT [facility] Internal Medicine Teaching Residency Program Inpatient Daily Progress Note Patient: Shayy Maynard Date of : 1945 Acct: [id number] Room: Admit date: 10/09/2019 Today's date: 10/10/19 [...] of COPD, primary hypertension was transferred from [facility] for management of infrarenal abdominal aortic aneurysm and for vascular consultation. States she started having lower back pain since . Describes the pain as constant, sharp, 10out of 10 in intensity associated with nausea. Patient went to the emergency department at [facility] to have hypertensive emergency with systolics above 200 and d-dimer was elevated. CT abdomen was done which showed 3.5 infrarenal aortic aneurysm, started on Cardene drip and pain medications we re given. Patient was transferred to [facility] found to be hypoxic in upper [...] Dwayne Hanson MD Internal Medicine Resident, PGY-1 [facility]; [place], [place] 10/10/2019, 12:00 PM * Giovanna Rodrigues [...] a 74 y.o. Female with transfer from [place]. Low back pain since . 3.4 infrarenal [...] [] Eloped FOLLOW-UP: Velasquez Bunch MD [address] [id number] DISCHARGE MEDICATIONS: New Prescriptions No medications on [...] section and content) DATE CREATED AUTHOR 08/13/2017 [facility] DATE CREATED AUTHOR AUTHOR'S ORGANIZ ATION 11/03/2019 [facility] DATE CREATED AUTHOR AUTHOR'S ORGANIZ ATION 11/29/2020 [facility] DATE CREATED AUTHOR AUTHOR'S ORGANIZ ATION 06/18/2022 [facility] DATE CREATED AUTHOR AUTHOR'S ORGANIZ ATION 05/22/2024 [facility] DATE CREATED AUTHOR AUTHOR'S ORGANIZ ATION 12/24/[address] [facility] DATE CREATED AUTHOR AUTHOR'S ORGANIZ ATION 12/31/2024 [facility] Reason for Visit (unrecogniz ed section and content) ReasonCommentsAbdominal PainBack PainStatusReasonSpecialtyDiagnoses / Procedures Referred By ContactReferred To Contact Diagnoses AAA (abdominal aortic aneurysm) (HCC) Giovanna Rodrigues MD [address] [place] [address] [facility] ReasonCommentsEczemaReasonCommentsFollow-up Care Teams (unrecognized sec tion [...] DateEnd Date Velasquez Bunch MD [address] [place] [address] [facility] - [facility]Te MemberRelationshipSpecialtyStart Date End Date Velasquez Bunch MD [address] [facility] [place] [address] [facility]CP - [facility]01/06/23Te MemberRelationshipSpecialtyStart Date End Date Velasquez Bunch MD [address] [facility] [place] [address] PCP - [facility]01/06/23Te MemberRelationshipSpecialtyStart Date End Date Velasquez Bunch MD [address] [facility] [place] [address] PCP - [facility]01/06/23 Team Status: Inactive Member Role/Relationship Status Dates Jaclyn Kimble ([facility] Nehemiah Attending Provider Active Start: December [...] BE BASED ON THE PRIMARY CLINICAL RECORDS. [facility] [email or web address] [facility]. provides no warranty or guarantee of the accuracy or completeness of information in this document.
--- OUTSIDE RECORDS SUMMARY | 2025-01-02 12:47 | XMS_ITS | Patient Health Record ---
Author Organization [facility] in [place] Address [address] [facility] [place] [address] Care Team Providers Care Floating Labor Gang Supervisor Name Role Phone Enio Langley Primary Care Provider Valerio Wang Unavailable [phone] Usman Zavala Unavailable [phone] Allergies Allergen (clinical drug ingredient) Drug/Non Drug [...] Interpretation: Performing Lab: Notes/Report: COLOR yellow CLARITYclearGLUCOSEnBILIRUBINnKETONEnSPECIFIC GRAVITY1.845POZENyCW9XJPUSQIqaydf UROBILINOGENnNITRITEnLEUKOCYTE ESTERASE++UA DIP NONAUTO WO MICRO (60410) - IN OFFICE Reviewed date:08/16/2024 07:19:28 PM Interpretation: Performing Lab: Notes/Report: COLORstrawCLARITYclearGLUCOSEnBILIRUBINnKETONEnSPECIFIC GRAVITY1.920PUYKGcLN7 PROTEINtraceUROBILINOGENnNITRITEnLEUKOCYTE ESTERASE++BNP Reviewed date:08/16/2024 07:19:28 PM Interpretation: Performing Lab: Notes/Report: [facility] ,NT Pro B Type Natriuretic Ghgj8132.0<=1800.0 pg/mLRESULTS CALLED TO DR. LANGLEY Performing Lab:see noteML - [facility] LBCBC AUTO DIFF Reviewed date:08/16/2024 06:39:10 PM Interpretation: Performing Lab: Notes/Report: [facility] ,White Blood Count7.34.0-11.0 10 3/uLRed Blood Count3.874.20-5.40 10 6/uL Mgaorcqfgo52.412.0-16.0 g/jTPembgvjhxp91.836.0-48.0 %Mean Corpuscular Cjjoqy29.5 81.0-99.0 fLMean Corpuscular Nwhlsemnga55.526.7-34.0 pgMean Corpuscular HGB Conc 31.829.9-35.2 g/dLRed Cell Distribution Width16.911.0-15.0 %Platelet Dcsqv682 150-450 10 3/uLMean Platelet Fkjyab99.69.5-13.5 fLNeutrophils Percent Auto64.5 43.0-75.0 %Lymphocytes Percent Auto23.820.5-60.0 %Monocytes Percent Auto7.81.7- 12.0 %Eosinophils Percent Auto3.10.9-7.0 %Basophils Percent Auto0.30.2-2.0 % Immature Granulocytes Pct Auto0.50.0-0.5 %Neutrophils Absolute Auto4.71.4-6.5 10 3/uLLymphocytes Absolute Auto1.71.2-3.8 10 3/uLMonocytes Absolute Auto0.60.3-0.8 10 3/uLEosinophils Absolute Auto0.20.0-0.7 10 3/uLBasophils Absolute Auto0.00.0- 0.1 10 3/uLImmature Granulocytes Abs Auto0.040.00-0.03 10 3/uLPerforming Lab:see noteML - [facility] LBPROF 14(COMP METB) Reviewed date:08/16/2024 07:19:28 PM Interpretation: Performing Lab: Notes/Report: [facility] ,Ncukwb849843-597 mmol/LPotassium4.53.5-5.1 mmol/IVpjutcfk19076-838 mmol/LCarbon Pdpgmjr06.421.0-32.0 mmol/LAnion Gap12.9Qmtapay68514-061 mg/dLBlood Urea Qyqtlbsx90.07.0-18.0 mg/dLCreatinine1.480.55-1.02 mg/dLEstimated GFR ( Cqodgpd07>=60 mL/min/1.73m 2Estimated GFR (Non- Ame34>=60 mL/min/1.73m 2 BUN Creatinine Ratio30.7Jrmshts7.88.5-10.1 mg/dLBilirubin Total0.40.2-1.0 mg/dL Aspartate Amino Irurpjkugxe2315-26 U/LAlanine Eoycblvhpcteeljb3023-99 U/L Alkaline Unhoxosfhla49536-245 U/LTotal Protein6.26.4-8.2 g/dLAlbumin Level3.1 3.4-5.0 g/dLGlobulin3.1Albumin Globulin Ratio1.0Performing Lab:see noteML - [facility] LBUA DIP NONAUTO WO MICRO (59613) - IN OFFICE Reviewed date:10/20/2024 11:06:25 AM Interpretation: Performing Lab: Notes/Report: COLORYellowCLARITYClearGLUCOSENegBILIRUBINNegKETONENegSPECIFIC GRAVITY1.010BLOOD MfnUG5BSXKMJF+UROBILINOGENNegNITRITENegLEUKOCYTE ESTERASE++US abdominal aortic aneurysm Reviewed date:01/06/2024 06:36:05 PM Interpretation: Performing Lab: Notes/Report: Source Facility: [facility]-[address] [place] [address] [place] [address] Ultrasound Report Signed Patient: ZACHARY MAYNARD MR#: [id number] : 1945 Acct:[id number] Age/Sex: 78 / F ADM Date: 01/06/24 Loc: US Attending Dr: Dipti Fulton M.D. Ordering Physician: Dipti Fulton M.D. Date of Service: 01/06/24 Procedure(s): US abdominal aortic aneurysm Accession Number(s): [id number] cc: Adina Langley M.D.; Dipti Fulton M.D. The [address] [address] Patient Name: ZACHARY MAYNARD MRN: [facility]:[id number] date: 1945 Sex: F Assigned Patient Location: US Current Patient Location: US Accession/Order Number: [id number] Exam Date: 01/06/2024 08:00 Report Date: 01/06/2024 [...] Signed By: 01/06/24 1256 DD/ 1253 TD/TT: Emergency Medical Service Coordinator:BLOOD GASES BTY Reviewed date:02/02/2024 10:16:01 AM Interpretation: Performing Lab: Notes/Report: [facility] ,pH ABG7.3827.350-7.450ABG QOA929.435.0-45.0 mmHgPO2 ABG57.380.0-100.0 mmHg RESULTS CALLED TO GILBERT ALVARADO) IN ERHCO3 ABG27.622.0-26.0 mmol/LBase Excess ABG2.5-2.0-2.0 mmol/LOxygen Saturation ABG90.7Allen TestPOSPOSITIVEO2 ModeNASAL CANNULALiters per Hgfold6Lvwhppjz SiteLEFT RADIALPerforming Lab:see noteML - [facility] LBBNP Reviewed date:02/02/2024 10:16:01 AM Interpretation: Performing Lab: Notes/Report: [facility] ,NT Pro B Type Natriuretic Yxkt4496.0<=1800.0 pg/mLRESULTS CALLED TO RENEE CEDEÑO) IN ERPerforming Lab:see note - [facility] LBCBC AUTO DIFF Reviewed date:02/02/2024 10:16:01 AM Interpretation: Performing Lab: Notes/Report: [facility] ,White Blood Count9.64.0-11.0 10 3/uLRed Blood Count3.114.20-5.40 10 6/uL Hemoglobin8.812.0-16.0 g/iQGwabocklwe11.836.0-48.0 %Mean Corpuscular Eeaxud13.6 81.0-99.0 fLMean Corpuscular Zgugkrxcdz85.326.7-34.0 pgMean Corpuscular HGB Conc 30.629.9-35.2 g/dLRed Cell Distribution Width16.611.0-15.0 %Platelet Vunwz273 150-450 10 3/uLMean Platelet Zhjwfy98.49.5-13.5 fLNeutrophils Percent Auto78.3 43.0-75.0 %Lymphocytes Percent Auto12.920.5-60.0 %Monocytes Percent Auto3.81.7- 12.0 %Eosinophils Percent Auto3.80.9-7.0 %Basophils Percent Auto0.40.2-2.0 % Immature Granulocytes Pct Auto0.80.0-0.5 %Neutrophils Absolute Auto7.51.4-6.5 10 3/uLLymphocytes Absolute Auto1.21.2-3.8 10 3/uLMonocytes Absolute Auto0.40.3-0.8 10 3/uLEosinophils Absolute Auto0.40.0-0.7 10 3/uLBasophils Absolute Auto0.00.0- 0.1 10 3/uLImmature Granulocytes Abs Auto0.080.00-0.03 10 3/uLPerforming Lab:see noteML - [facility] LBLACTATE or LACTIC ACID Reviewed date:02/02/2024 10:16:01 AM Interpretation: Performing Lab: Notes/Report: [facility] ,Lactate/Lactic Acid0.70.4-2.0 mmol/LPerforming Lab:see noteML - [facility] LBPROF 14(COMP METB) Reviewed date:02/02/2024 10:16:01 AM Interpretation: Performing Lab: Notes/Report: [facility] ,Cxavcb831019-266 mmol/LPotassium4.43.5-5.1 mmol/UHluzkioa26466-086 mmol/LCarbon Aqyneji42.221.0-32.0 mmol/LAnion Gap9.2Zaneama74418-851 mg/dLBlood Urea Nitrogen 22.07.0-18.0 mg/dLCreatinine1.440.55-1.02 mg/dLEstimated GFR ( Pidbrat89 >=60 mL/min/1.73m 2Estimated GFR (Non- Ame35>=60 mL/min/1.73m 2BUN Creatinine Ratio15.2Rxckjjn6.48.5-10.1 mg/dLBilirubin Total0.60.2-1.0 mg/dL Aspartate Amino Hapmxfbanro2137-07 U/LAlanine Yfjbmuplnzllbftx9675-32 U/L Alkaline Gjjeaxxwaxq13109-649 U/LTotal Protein6.06.4-8.2 g/dLAlbumin Level2.6 3.4-5.0 g/dLGlobulin3.4Albumin Globulin Ratio0.8Performing Lab:see noteML - [facility] LBUA RANDOM W or MICROSCOPIC Reviewed date:02/02/2024 10:16:00 AM Interpretation: Performing Lab: Notes/Report: [facility] ,Color UrineLT. YELLOWYELLOWClarity UrineCLEARCLEARSpecific [place] Urine1.015 1.005-1.025pH Urine6.05.0-9.0Protein Ubcio11HDP/TRACE mg/dLGlucose Urine UA NEGATIVENEGATIVE mg/dLBilirubin UrineNEGATIVENEGATIVEKetones UrineNEGATIVE NEGATIVE mg/dLBlood UrineNEGATIVENEGATIVENitrite UrineNEGATIVENEGATIVE Urobilinogen Urine0.20.2-1.0 EU/dLLeukocyte Esterase UrineNEGATIVENEGATIVEWBC Urine0-2NONE SEEN #/HPFRBC Urine0-20-2 #/HPFBacteria UrineTRACENONE SEEN #/HPF Mucus UrineNONE SEENNONE SEENSquamous Epithelial Cell UrineRARENONE/RARE #/LPF Crystals Seen?None SeenNone Seen #/HPFCast Seen?NONE SEENNONE SEEN #/LPFUrine Culture IndicatedNOPerforming Lab:see note - [facility] LB Prothrombin Time INR Reviewed date:02/02/2024 10:16:00 AM Interpretation: Performing Lab: Notes/Report: [facility] ,Prothrombin Time11.19.0-11.6 secINR1.05 DESIRED INR: 2.0-3.0 CONDITIONS NOT LISTED BELOW 2.5-3.5 FOR PROSTHETIC HEART VALVE REPLACEMENT 2.5-3.5 RECURRENT THROMBOSIS Performing Lab:see [facility] LBTroponin I High Sensitivity Reviewed date:02/02/2024 10:16:01 AM Interpretation: Performing Lab: Notes/Report: [facility] ,Troponin I High Hhjhncbchgx06.34.0-51.3 pg/mL CUT-OFF POINTS HAVE BEEN ESTABLISHED BASED ON THE FOURTH UNIVERSAL DEFINITION OF MYOCARDIAL INFARCTION. THE UPPER REFERENCE LIMIT (URL) OF TROPONIN, DEFINED THE 99TH PERCENTILE OF cTnI DISTRIBUTION IN A REFERENCE POPULATION, HAS BEEN CONFIRMED THE DECISION THRESHOLD FOR MO DIAGNOSIS. 99TH PERCENTILE = 51.4 PG/ML NOTE: HIGH-SENSITIVITY TROPONIN ASSAY IS NOT INTENDED TO BE USED IN ISOLATION BUT SHOULD BE INTERPRETED IN CONJUNCTION WITH OTHER DIAGNOSTIC AND CLINICAL INFORMATION. Performing Lab:[facility] LBECG 12 lead Reviewed date:02/02/2024 10:16:00 AM Interpretation: Performing Lab: Notes/Report: Source Facility: [place] [address] Electrocardiograph Report Signed Patient: ZACHARY MAYNARD MR#: [id number] : 1945 Acct:[id number] Age/Sex: 78 / F ADM Date: 02/01/24 Loc: ER Attending Dr: Ordering Physician: Ryan Jamil Date of Service: 02/01/24 Procedure(s): ECG 12 lead Accession Number(s): [id number] cc: [facility] Test Date: 2024-02-01 Pat Name: ZACHARY MAYNARD Department: Room: - Gender: Female Intranet Developer: : 1945 Requested By: ADINA LANGLEY Order Number: [id number] Reading MD: ADINA LANGLEY Measurements Intervals Hagan Rate: 70 P: 70 CT: 170 QRS: 61 QRSD: 88 T: 60 QT: 378 QTc: 399 Interpretive Statements 1100 Sinus rhythm 1102 Sinus arrhythmia 9110 normal ECG Compared to ECG 12/04/2023 12:28:07 Atrial fibrillation no longer present Electronically Signed On 02-02-2024 5:29:27 EST by ADINA LANGLEY Dictated By: Adina Langley M.D. Signed By: 02/02/24528 DD/ 44 TD/TT: Emergency Medical Service Coordinator:CT head/brain wo con Reviewed date:02/02/2024 10:16:00 AM Interpretation: Performing Lab: Notes/Report: Source Facility: [place] [address] CT Scan Report Signed Patient: ZACHARY MAYNARD MR#: [id number] : 1945 Acct:[id number] Age/Sex: 78 / F ADM Date: 02/01/24 Loc: ER Attending Dr: Ordering Physician: Ryan Jamil Date of Service: 02/01/24 Procedure(s): CT head/brain wo con Accession Number(s): [id number] cc: Adina Langley M.D. [place] [address] Patient Name: ZACHARY MAYNARD MRN: [facility]:[id number] date: 1945 Sex: F Assigned Patient Location: ER Current Patient Location: ED.MAIN Accession/Order Number: [id number] Exam Date: 02/01/2024 20:55 Report Date: 02/01/2024 [...] M.D. Signed By: 02/01/242231 DD/ 28 TD/TT: Emergency Medical Service Coordinator:XR acute abdomen series Reviewed date:02/02/2024 10:16:00 AM Interpretation: Performing Lab: Notes/Report: Source Facility: [place] [address] XRay Report Signed Patient: ZACHARY MAYNARD MR#: [id number] : 1945 Acct:[id number] Age/Sex: 78 / F ADM Date: 02/01/24 Loc: ER Attending Dr: Ordering Physician: Ryan Jamil Date of Service: 02/01/24 Procedure(s): XR acute abdomen series Accession Number(s): [id number] cc: Adina Langley M.D.; Ryan Jamil [place] [address] Patient Name: ZACHARY MAYNARD MRN: [facility]:[id number] date: 1945 Sex: F Assigned Patient Location: ER Current Patient Location: ER Accession/Order Number: [id number] Exam Date: 02/01/2024 20:55 Report Date: 02/01/2024 [...] Dictated By: Karla Calix M.D. Signed By: 02/01/248 DD/ TD/TT: Emergency Medical Service Coordinator:CBC AUTO DIFF Reviewed date:02/02/2024 10:16:00 AM Interpretation: Performing Lab: Notes/Report: [facility] ,White Blood Count9.64.0-11.0 10 3/uLRed Blood Count3.144.20-5.40 10 6/uL Hemoglobin9.012.0-16.0 g/rBVsvidqfwpo24.736.0-48.0 %Mean Corpuscular Ilkdsm62.4 81.0-99.0 fLMean Corpuscular Vbvfppzczm29.726.7-34.0 pgMean Corpuscular HGB Conc 31.429.9-35.2 g/dLRed Cell Distribution Width16.511.0-15.0 %Platelet Dynce272 150-450 10 3/uLMean Platelet Vspxbs88.49.5-13.5 fLNeutrophils Percent Auto81.3 43.0-75.0 %Lymphocytes Percent Auto10.420.5-60.0 %Monocytes Percent Auto4.81.7- 12.0 %Eosinophils Percent Auto2.50.9-7.0 %Basophils Percent Auto0.30.2-2.0 % Immature Granulocytes Pct Auto0.70.0-0.5 %Neutrophils Absolute Auto7.81.4-6.5 10 3/uLLymphocytes Absolute Auto1.01.2-3.8 10 3/uLMonocytes Absolute Auto0.50.3-0.8 10 3/uLEosinophils Absolute Auto0.20.0-0.7 10 3/uLBasophils Absolute Auto0.00.0- 0.1 10 3/uLImmature Granulocytes Abs Auto0.070.00-0.03 10 3/uLPerforming Lab:see noteML - [facility] LBTroponin I High Sensitivity Reviewed date:02/02/2024 10:16:00 AM Interpretation: Performing Lab: Notes/Report: [facility] ,Troponin I High Ofairaahrja09.74.0-51.3 pg/mL RESULTS CALLED TO RENEE HERMAN RN CUT-OFF POINTS HAVE BEEN ESTABLISHED BASED ON THE FOURTH UNIVERSAL DEFINITION OF MYOCARDIAL INFARCTION. THE UPPER REFERENCE LIMIT (URL) OF TROPONIN, DEFINED THE 99TH PERCENTILE OF cTnI DISTRIBUTION IN A REFERENCE POPULATION, HAS BEEN CONFIRMED THE DECISION THRESHOLD FOR MO DIAGNOSIS. 99TH PERCENTILE = 51.4 PG/ML NOTE: HIGH-SENSITIVITY TROPONIN ASSAY IS NOT INTENDED TO BE USED IN ISOLATION BUT SHOULD BE INTERPRETED IN CONJUNCTION WITH OTHER DIAGNOSTIC AND CLINICAL INFORMATION. Performing Lab:see noteML - [facility] LBCT angio abdomen pelvis Reviewed date:02/02/2024 10:16:00 AM Interpretation: Performing Lab: Notes/Report: Source Facility: [facility]-[address] [place] [address] [place] [address] CT Scan Report Signed Patient: ZACHARY MAYNARD MR#: [id number] : 1945 Acct:[id number] Age/Sex: 78 / F ADM Date: 02/01/24 Loc: ER Attending Dr: Ordering Physician: Ryan Jamil Date of Service: 02/01/24 Procedure(s): CT angio abdomen pelvis Accession Number(s): [id number] cc: Adina Langley M.D. [address] [address] Patient Name: ZACHARY MAYNARD MRN: [facility]:[id number] date: 1945 Sex: F Assigned Patient Location: ER Current Patient Location: ER Accession/Order Number: [id number] Exam Date: 02/01/2024 23:12 Report Date: 02/02/2024 [...] Daniels M.D. Signed By: 02/02/24 0043 DD/ 004 TD/TT: Emergency Medical Service Coordinator:CBC AUTO DIFF Reviewed date:02/16/2024 07:54:36 PM Interpretation: Performing Lab: Notes/Report: [facility] ,White Blood Count6.64.0-11.0 10 3/uLRed Blood Count2.994.20-5.40 10 6/uL Hemoglobin8.412.0-16.0 g/xXCkhioehuou04.336.0-48.0 %Mean Corpuscular Mfpcnl11.3 81.0-99.0 fLMean Corpuscular Abmycltuar61.126.7-34.0 pgMean Corpuscular HGB Conc 30.829.9-35.2 g/dLRed Cell Distribution Width16.611.0-15.0 %Platelet Whjyt136 150-450 10 3/uLMean Platelet Nudufp92.39.5-13.5 fLNeutrophils Percent Auto65.3 43.0-75.0 %Lymphocytes Percent Auto16.820.5-60.0 %Monocytes Percent Auto11.41.7- 12.0 %Eosinophils Percent Auto4.40.9-7.0 %Basophils Percent Auto0.90.2-2.0 % Immature Granulocytes Pct Auto1.20.0-0.5 %Neutrophils Absolute Auto4.31.4-6.5 10 3/uLLymphocytes Absolute Auto1.11.2-3.8 10 3/uLMonocytes Absolute Auto0.80.3-0.8 10 3/uLEosinophils Absolute Auto0.30.0-0.7 10 3/uLBasophils Absolute Auto0.10.0- 0.1 10 3/uLImmature Granulocytes Abs Auto0.080.00-0.03 10 3/uLPerforming Lab:see noteML - [facility] LBPROF CHEM 8 (BAS METB) Reviewed date:02/16/2024 07:54:36 PM Interpretation: Performing Lab: Notes/Report: [facility] ,Fspgqn419131-321 mmol/LPotassium4.93.5-5.1 mmol/YUgzlhetc98894-673 mmol/LCarbon Khyjfxw58.021.0-32.0 mmol/LAnion Gap12.8Wafovkq40354-552 mg/dLBlood Urea Uvrmjbah83.07.0-18.0 mg/dLCreatinine1.780.55-1.02 mg/dLEstimated GFR ( Vujuprt52>=60 mL/min/1.73m 2Estimated GFR (Non- Ame27>=60 mL/min/1.73m 2 BUN Creatinine Ratio11.6Natgugy0.28.5-10.1 mg/dLPerforming Lab:see noteML - [facility] LBBNP Reviewed date:02/29/2024 05:39:20 PM Interpretation: Performing Lab: Notes/Report: [facility] ,NT Pro B Type Natriuretic Yxqr3245.0<=1800.0 pg/mLRESULTS CALLED TO ROSA ANDRADE RN at 1956Performing Lab:see noteML - [facility] LBCBC AUTO DIFF Reviewed date:02/29/2024 05:39:20 PM Interpretation: Performing Lab: Notes/Report: [facility] ,White Blood Count5.04.0-11.0 10 3/uLRed Blood Count3.154.20-5.40 10 6/uL Hemoglobin8.812.0-16.0 g/mRNhpuxkqerm64.436.0-48.0 %Mean Corpuscular Utajfv64.2 81.0-99.0 fLMean Corpuscular Ntpkhpiccu18.926.7-34.0 pgMean Corpuscular HGB Conc 31.029.9-35.2 g/dLRed Cell Distribution Width16.911.0-15.0 %Platelet Tvlnx881 150-450 10 3/uLMean Platelet Fntrns61.89.5-13.5 fLNeutrophils Percent Auto53.7 43.0-75.0 %Lymphocytes Percent Auto28.920.5-60.0 %Monocytes Percent Auto8.91.7- 12.0 %Eosinophils Percent Auto7.50.9-7.0 %Basophils Percent Auto0.60.2-2.0 % Immature Granulocytes Pct Auto0.40.0-0.5 %Neutrophils Absolute Auto2.71.4-6.5 10 3/uLLymphocytes Absolute Auto1.41.2-3.8 10 3/uLMonocytes Absolute Auto0.40.3-0.8 10 3/uLEosinophils Absolute Auto0.40.0-0.7 10 3/uLBasophils Absolute Auto0.00.0- 0.1 10 3/uLImmature Granulocytes Abs Auto0.020.00-0.03 10 3/uLPerforming Lab:see noteML - [facility] LBLIPASE Reviewed date:02/29/2024 05:39:20 PM Interpretation: Performing Lab: Notes/Report: [facility] ,Grijbh06.016.0-77.0 U/LPerforming Lab:see noteML - [facility] LBPROF 14(COMP METB) Reviewed date:02/29/2024 05:39:20 PM Interpretation: Performing Lab: Notes/Report: [facility] ,Mgrvao117921-627 mmol/LPotassium4.33.5-5.1 mmol/PYbwsihac33364-395 mmol/LCarbon Gpekxlb15.421.0-32.0 mmol/LAnion Gap11.4Dqczdwv06965-529 mg/dLBlood Urea Udlwebqv59.07.0-18.0 mg/dLCreatinine1.890.55-1.02 mg/dLEstimated GFR ( Fxhbmpe20>=60 mL/min/1.73m 2Estimated GFR (Non- Ame26>=60 mL/min/1.73m 2 BUN Creatinine Ratio13.1Hemomgf8.98.5-10.1 mg/dLBilirubin Total0.40.2-1.0 mg/dL Aspartate Amino Vugaithxyqk4129-57 U/LAlanine Wssrcglmhyemueug8704-38 U/L Alkaline Nkpzwsqmixz50047-712 U/LTotal Protein6.26.4-8.2 g/dLAlbumin Level2.9 3.4-5.0 g/dLGlobulin3.3Albumin Globulin Ratio0.9Performing Lab:see note - [facility] LBProthrombin Time INR Reviewed date:02/29/2024 05:39:20 PM Interpretation: Performing Lab: Notes/Report: [facility] ,Prothrombin Time11.19.0-11.6 secINR1.05 DESIRED INR: 2.0-3.0 CONDITIONS NOT LISTED BELOW 2.5-3.5 FOR PROSTHETIC HEART VALVE REPLACEMENT 2.5-3.5 RECURRENT THROMBOSIS Performing Lab:see note - [facility] LBTroponin I High Sensitivity Reviewed date:02/29/2024 05:39:20 PM Interpretation: Performing Lab: Notes/Report: [facility] ,Troponin I High Sensitivity8.44.0-51.3 pg/mL CUT-OFF POINTS HAVE BEEN ESTABLISHED BASED ON THE FOURTH UNIVERSAL DEFINITION OF MYOCARDIAL INFARCTION. THE UPPER REFERENCE LIMIT (URL) OF TROPONIN, DEFINED THE 99TH PERCENTILE OF cTnI DISTRIBUTION IN A REFERENCE POPULATION, HAS BEEN CONFIRMED THE DECISION THRESHOLD FOR MO DIAGNOSIS. 99TH PERCENTILE = 51.4 PG/ML NOTE: HIGH-SENSITIVITY TROPONIN ASSAY IS NOT INTENDED TO BE USED IN ISOLATION BUT SHOULD BE INTERPRETED IN CONJUNCTION WITH OTHER DIAGNOSTIC AND CLINICAL INFORMATION. Performing Lab:see noteML - [facility] LBECG 12 lead Reviewed date:02/29/2024 05:39:19 PM Interpretation: Performing Lab: Notes/Report: Source Facility: [place] [address] Electrocardiograph Report Signed Patient: ZACHARY MAYNARD MR#: [id number] : 1945 Acct:[id number] Age/Sex: 78 / F ADM Date: 02/25/24 Loc: ER Attending Dr: Ordering Physician: Valentina Guzman Date of Service: 02/25/24 Procedure(s): ECG 12 lead Accession Number(s): [id number] cc: [facility] Test Date: 2024-02-25 Pat Name: ZACHARY MAYNARD Department: Room: - Gender: Female Intranet Developer: : 1945 Requested By: ADINA LANGLEY Order Number: [id number] Reading MD: RYAN ROMERO Measurements Intervals Hagan Rate: 59 P: 30 CT: 164 QRS: -26 QRSD: 86 T: 37 QT: 448 QTc: 448 Interpretive Statements 1100 Sinus rhythm 5211 Minimal voltage criteria for LVH, may be normal variant 7202 Moderate left axis deviation 9130 borderline ECG Electronically Signed On 02-28-2024 8:11:01 EST by RYAN ROMERO Dictated By: Ryan Romero D.O. Signed By: 02/28/24 0811 DD/ 1858 TD/TT: Emergency Medical Service Coordinator:CT chest easton davis Reviewed date:02/29/2024 05:39:19 PM Interpretation: Performing Lab: Notes/Report: Source Facility: [place] [address] CT Scan Report Signed Patient: ZACHARY MAYNARD MR#: [id number] : 1945 Acct:[id number] Age/Sex: 78 / F ADM Date: 02/25/24 Loc: ER Attending Dr: Ordering Physician: Valentina Guzman Date of Service: 02/25/24 Procedure(s): CT chest wo con Accession Number(s): [id number] cc: Adina Langley M.D. [place] [address] Patient Name: ZACHARY MAYNARD MRN: [facility]:[id number] date: 1945 Sex: F Assigned Patient Location: ER Current Patient Location: ER Accession/Order Number: [id number] Exam Date: 02/25/2024 19:38 Report Date: 02/25/2024 [...] M.D. Signed By: 02/25/242010 DD/ 07 TD/TT: Emergency Medical Service Coordinator:CT abdomen pelvis wo con Reviewed date:02/29/2024 05:39:20 PM Interpretation: Performing Lab: Notes/Report: Source Facility: [place] [address] CT Scan Report Signed Patient: ZACHARY MAYNARD MR#: [id number] : 1945 Acct:[id number] Age/Sex: 78 / F ADM Date: 02/25/24 Loc: ER Attending Dr: Ordering Physician: Valentina Guzman Date of Service: 02/25/24 Procedure(s): CT abdomen pelvis wo con Accession Number(s): [id number] cc: Adina Langley M.D. [place] [address] Patient Name: ZACHARY MAYNARD MRN: [facility]:[id number] date: 1945 Sex: F Assigned Patient Location: ER Current Patient Location: ER Accession/Order Number: [id number] Exam Date: 02/25/2024 19:38 Report Date: 02/25/2024 [...] M.D. Signed By: 02/25/242010 DD/ 07 TD/TT: Emergency Medical Service Coordinator:XR wrist LT min 3V Reviewed date:04/04/2024 11:16:15 AM Interpretation: Performing Lab: Notes/Report: Source Facility: [place] [address] XRay Report Signed Patient: ZACHARY MAYNARD MR#: [id number] : 1945 Acct:[id number] Age/Sex: 78 / F ADM Date: 04/01/24 Loc: RAD Attending Dr: Adina Langley M.D. Ordering Physician: Adina Langley M.D. Date of Service: 04/01/24 Procedure(s): XR wrist LT min 3V Accession Number(s): [id number] cc: Adina Langley M.D. [place] [address] Patient Name: ZACHARY MAYNARD MRN: [id number] date: 1945 Sex: F Assigned Patient Location: [facility] Current Patient Location: [facility] Accession/Order Number: [id number] Exam Date: 04/01/2024 16:08 Report Date: 04/01/2024 [...] M.D. Signed By: 04/01/242153 DD/ 51 TD/TT: Emergency Medical Service Coordinator:US venous doppler UE RT Reviewed date:04/01/2024 07:57:13 AM Interpretation: Performing Lab: Notes/Report: Source Facility: [place] [address] Ultrasound Report Signed Patient: ZACHARY MAYNARD MR#: [id number] : 1945 Acct:[id number] Age/Sex: 78 / F ADM Date: 03/31/24 Loc: [facility] Attending Dr: Adina Langley M.D. Ordering Physician: Adina Langley M.D. Date of Service: 03/31/24 Procedure(s): US venous doppler UE LT Accession Number(s): [id number] cc: Adina Langley M.D. [place] [address] Patient Name: ZACHARY MAYNARD MRN: [id number] date: 1945 Sex: F Assigned Patient Location: [facility] Current Patient Location: Accession/Order Number: [id number] Exam Date: 03/31/2024 16:27 Report Date: 04/01/2024 [...] Valerio Hooker M.D. Signed By: 04/01/2438 DD/ 4 TD/TT: Emergency Medical Service Coordinator:HEMOGLOBIN Reviewed date:06/30/2024 01:21:43 PM Interpretation: Performing Lab: Notes/Report: [facility] ,[id number] g/dLPerforming Lab:see noteML - [facility] LBRT pulmonary function test Reviewed date:07/05/2024 08:47:56 PM Interpretation: Performing Lab: Notes/Report: Source Facility[facility] [facility] [place] [address] Respiratory Report Signed Patient: ZACHARY MAYNARD MR#: [id number] : 1945 Acct:[id number] Age/Sex: 79 / F ADM Date: 06/30/24 Loc: CARD Attending Dr: Dipti Fulton M.D. Ordering Physician: Dipti Fulton M.D. Date of Service: 06/30/24 Procedure(s): RT pulmonary function test Accession Number(s): [id number] cc: [facility] Test Date: 2024-06-30 Pat Name: ZACHARY MAYNARD Department: Room: - Gender: Female Intranet Developer: Alisa Bradley RRT : 1945 Requested By: Dipti Fulton Order Number: [id number] Reading MD: Usman Zavala Interpretive Statements Pulmonary function testing was completed according to ATS criteria. Findings were considered accurate and reproducible with exception of panting maneuvers. Both pre- and post-bronchodilator values utilized for spirometry. Spirometry (based on pre-bronchodilator values): -FEV1/FVC: Reduced @ 58% -FEV1: Normal @ 119% -FVC: Supra-normal @ 149% -FUH81-73%: Reduced @ 67% -There is a partial [...] 07/05/24 1601 07/05/24 1601 DD/ 1247 TD/TT: Emergency Medical Service Coordinator:LIPID PROFILE Reviewed date:07/27/2024 04:20:30 PM Interpretation: Performing Lab: Notes/Report: [facility] ,Wqazkrhrnspfy610<=150 mg/hUGrpsvgjprne134<=200 mg/dLHDL Crcjfsinqqi2461-57 mg/dL > or =60 mg/dl - LOW CARDIOVASCULAR RISK <40 mg/dl - HIGH CARDIOVASCULAR RISK LDL Cholesterol Fufztblhxd94.0 <100 mg/dl OPTIMAL 100-129 mg/dl NEAR OR ABOVE OPTIMAL 130-159 mg/dl BORDERLINE HIGH 160-189 mg/dl HIGH >190 mg/dl VERY HIGH VLDL RVTCXBIMBBE09.2Chol HDL Ratio3.3 3.3 - 4.4 LOW RISK 4.4 - 7.1 AVERAGE RISK 7.1 - 11.0 MODERATE RISK >11.0 HIGH RISK Performing Lab:see noteML - [facility] LBSGOT Reviewed date:07/27/2024 04:20:30 PM Interpretation: Performing Lab: Notes/Report: [facility] ,Aspartate Amino Xiyqirvhaev9797-02 U/LPerforming Lab:see noteML - [facility] LBSGPT Reviewed date:07/27/2024 04:20:30 PM Interpretation: Performing Lab: Notes/Report: [facility] ,Alanine Dnioyhkgfsqzkzqd7188-04 U/LPerforming Lab:see note - [facility] LBFREE T3 Reviewed date:08/16/2024 07:19:28 PM Interpretation: Performing Lab: Notes/Report: [facility] ,Free T31.702.18-3.98 pg/mLPerforming Lab:see note - [facility] LB T4 Reviewed date:08/16/2024 07:19:28 PM Interpretation: Performing Lab: Notes/Report: [facility] ,T4 Gqgdhtnds46.304.80-13.90 ug/dLPerforming Lab:see [facility] - [facility] LBTSH Reviewed date:08/16/2024 07:19:28 PM Interpretation: Performing Lab: Notes/Report: [facility] ,Thyroid Stimulating Hormone4.4180.358-3.740 uIU/mLPerforming Lab:see [facility] - [facility] LBXR chest 2V Reviewed date:08/16/2024 06:39:10 PM Interpretation: Performing Lab: Notes/Report: Source Facility: [place] [address] XRay Report Signed Patient: ZACHARY MAYNARD MR#: [id number] : 1945 Acct:[id number] Age/Sex: 79 / F ADM Date: 08/16/24 Loc: LAB Attending Dr: Adina Langley M.D. Ordering Physician: Adina Langley M.D. Date of Service: 08/16/24 Procedure(s): XR chest 2V Accession Number(s): [id number] cc: Adina Langley M.D. [place] [address] Patient Name: ZACHARY MAYNARD MRN: [id number] date: 1945 Sex: F Assigned Patient Location: LAB Current Patient Location: LAB Accession/Order Number: [id number] Exam Date: 08/16/2024 16:24 Report Date: 08/16/2024 [...] Bonds M.D. 08/16/2024 4:27 PM Dictation Location: [place] [address] Electronically authenticated by: [id number] Y Date: 08/16/2024 16:27 Dictated By: Xavier Bonds M.D. Signed By: 08/16/24 1629 DD/ 1627 TD/TT: Emergency Medical Service Coordinator:СВЕТЛАНА RAND URINE Reviewed date:08/18/2024 09:07:26 PM Interpretation: Performing Lab: Notes/Report: [facility] ,Total Protein Urine Deyfev56.1<=11.9 mg/dLPerforming Lab:see noteML - [facility] LBUA RANDOM W or MICROSCOPIC Reviewed date:08/18/2024 09:07:26 PM Interpretation: Performing Lab: Notes/Report: [facility] ,Color UrineLT. YELLOWYELLOWClarity UrineCLEARCLEARSpecific [place] Urine1.015 1.005-1.025pH Urine5.55.0-9.0Protein UrineNEGATIVENEG/TRACE mg/dLGlucose Urine UANEGATIVENEGATIVE mg/dLBilirubin UrineNEGATIVENEGATIVEKetones UrineNEGATIVE NEGATIVE mg/dLBlood UrineNEGATIVENEGATIVENitrite UrineNEGATIVENEGATIVE Urobilinogen Urine0.20.2-1.0 EU/dLLeukocyte Esterase UrineNEGATIVENEGATIVEWBC UrineNONE SEENNONE SEEN #/HPFRBC UrineNONE SEEN0-2 #/HPFBacteria UrineTRACENONE SEEN #/HPFMucus UrineNONE SEENNONE SEENSquamous Epithelial Cell UrineRARE NONE/RARE #/LPFCrystals Seen?None SeenNone Seen #/HPFCast Seen?NONE SEENNONE SEEN #/LPFPerforming Lab:see noteML - [facility] LBUrine Culture - [facility] Reviewed date:08/19/2024 07:15:04 PM Interpretation: Performing Lab: Notes/Report: [facility] ,Urine Culture - FRMCSee Below For Report Urine Culture - [facility] <9,000 colonies/ml mixed Urine Culture - FRMCbacterial skin contaminants Urine Culture - [facility] <9,000 colonies/ml mixed Urine Culture - [facility]2 Days Urine Culture - [facility] <9,000 colonies/ml mixed Urine Culture - [facility] Urine Culture - [facility] <9,000 colonies/ml mixed Urine Culture - FRMCTesting performed at [facility] Urine Culture - [facility] <9,000 colonies/ml mixed Urine Culture - [id number] [place] [address] Urine Culture - [facility] <9,000 colonies/ml mixed Performing Lab:see noteML - [facility] LBHEMOGLOBIN Reviewed date:08/23/2024 09:16:19 PM Interpretation: Performing Lab: Notes/Report: [facility] ,Dixfcttpbw96.612.0-16.0 g/dLPerforming Lab:see note - [facility] LBPROF CHEM 8 (BAS METB) Reviewed date:08/23/2024 09:16:19 PM Interpretation: Performing Lab: Notes/Report: [facility] ,Uviytz675677-997 mmol/LPotassium4.23.5-5.1 mmol/CAjbttdif53309-695 mmol/LCarbon Zvqecsy78.721.0-32.0 mmol/LAnion Gap11.0Gotkvph24169-393 mg/dLBlood Urea Txjofxfw62.07.0-18.0 mg/dLCreatinine1.250.55-1.02 mg/dLEstimated GFR ( Winbyuo81>=60 mL/min/1.73m 2Estimated GFR (Non- Ame41>=60 mL/min/1.73m 2 BUN Creatinine Ratio32.7Zgffxwf8.38.5-10.1 mg/dLPerforming Lab:see note - [facility] LBPTT Reviewed date:08/23/2024 09:16:19 PM Interpretation: Performing Lab: Notes/Report: [facility] ,Partial Thromboplastin Time27.622.3-36.2 secPerforming Lab:see note - [facility] LBProthrombin Time INR Reviewed date:08/23/2024 09:16:19 PM Interpretation: Performing Lab: Notes/Report: [facility] ,Prothrombin Time10.49.0-11.6 secINR0.98 DESIRED INR: 2.0-3.0 CONDITIONS NOT LISTED BELOW 2.5-3.5 FOR PROSTHETIC HEART VALVE REPLACEMENT 2.5-3.5 RECURRENT THROMBOSIS Performing Lab:see note - [facility] LBMRSA Screening Culture Reviewed date:08/25/2024 07:11:59 PM Interpretation: Performing Lab: Notes/Report: [facility] ,MRSA Screening CultureSee Below For Report MRSA Screening Culture MRSA Screening CultureNegative MRSA Screening Culture MRSA Screening CulturePerformed at: CB - [facility] [place] MRSA Screening Culture MRSA Screening [address] [place], [place] [id number] MRSA Screening Culture MRSA Screening CultureLab Director: John Paul Don PhD, Phone: [phone] MRSA Screening Culture Performing Lab:see note LC - [facility] LB 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 Ordering Physician: Adina Langley M.D. Date of Service: 09/08/24 Procedure(s): CA echo doppler complete Accession Number(s): [id number] cc: Adina Langley M.D. Patient Name: ZACHARY MAYNARD MR#: [id number] : 1945 Exam Date: 09/08/2024 Ordering Doctor: [...] M.D. Signed By: 09/08/241813 DD/ 12 TD/TT: Emergency Medical Service Coordinator: right [facility] Reviewed date:09/09/2024 05:20:20 PM Interpretation: Performing Lab: Notes/Report: Source Facility: [facility]-[address] [place] [address] [place] [address] Ultrasound Report Signed Patient: ZACHARY MAYNARD MR#: [id number] : 1945 Acct:[id number] Age/Sex: 79 / F ADM Date: 09/09/24 Loc: US Attending Dr: Adina Langley M.D. Ordering Physician: Adina Langley M.D. Date of Service: 09/09/24 Procedure(s): US right upper quadrant Accession Number(s): [id number] cc: Adina Langley M.D. [place] [id number] Patient Name: ZACHARY MAYNARD MRN: [id number] date: 1945 Sex: F Assigned Patient Location: US Current Patient Location: US Accession/Order Number: [id number] Exam Date: 09/09/2024 11:28 Report Date: 09/09/2024 [...] Arizmendi M.D. 09/09/2024 11:31 AM Dictation Location: [place] [address] Electronically authenticated by: [id number] Y Date: 09/09/2024 11:31 Dictated By: Sammie Arizmendi M.D. Signed By: 09/09/24 1134 DD/ 113 TD/TT: Emergency Medical Service Coordinator:BNP Reviewed date:12/17/2024 03:32:32 PM Interpretation: Performing Lab: Notes/Report: [facility] ,NT Pro B Type Natriuretic Jwcn32583.0<=1800.0 pg/mLRESULTS CALLED TO DR FOREMAN IN ERPerforming Lab:see noteML - [facility] LBCBC AUTO DIFF Reviewed date:12/17/2024 03:32:32 PM Interpretation: Performing Lab: Notes/Report: [facility] ,White Blood Count10.64.0-11.0 10 3/uLRed Blood Count4.194.20-5.40 10 6/uL Ibqpfprjwb42.712.0-16.0 g/hGHdjcwouswn77.836.0-48.0 %Mean Corpuscular Ukyxge69.0 81.0-99.0 fLMean Corpuscular Ysfibhakyx24.326.7-34.0 pgMean Corpuscular HGB Conc 31.929.9-35.2 g/dLRed Cell Distribution Width13.811.0-15.0 %Platelet Bvgti943 150-450 10 3/uLMean Platelet Tbvsde91.29.5-13.5 fLNeutrophils Percent Auto84.2 43.0-75.0 %Lymphocytes Percent Auto9.120.5-60.0 %Monocytes Percent Auto5.11.7- 12.0 %Eosinophils Percent Auto0.00.9-7.0 %Basophils Percent Auto0.10.2-2.0 % Immature Granulocytes Pct Auto1.50.0-0.5 %Neutrophils Absolute Auto9.01.4-6.5 10 3/uLLymphocytes Absolute Auto1.01.2-3.8 10 3/uLMonocytes Absolute Auto0.50.3- 0.8 10 3/uLEosinophils Absolute Auto0.00.0-0.7 10 3/uLBasophils Absolute Auto0.0 0.0-0.1 10 3/uLImmature Granulocytes Abs Auto0.160.00-0.03 10 3/uLPerforming Lab:see noteML - [facility] LBPROF 14(COMP METB) Reviewed date:12/17/2024 03:32:32 PM Interpretation: Performing Lab: Notes/Report: [facility] ,Galmpf861634-445 mmol/LPotassium3.93.5-5.1 mmol/QMsqkemkx00340-343 mmol/LCarbon Vhrmqhi21.621.0-32.0 mmol/LAnion Gap15.3Smozosc72261-160 mg/dLBlood Urea Hbtnkrsl97.07.0-18.0 mg/dLCreatinine1.290.55-1.02 mg/dLEstimated GFR ( Mwuhgib02>=60 mL/min/1.73m 2Estimated GFR (Non- Ame40>=60 mL/min/1.73m 2 BUN Creatinine Ratio20.8Ffabmpp5.48.5-10.1 mg/dLBilirubin Total0.30.2-1.0 mg/dL Aspartate Amino Ogskcchpsis0006-25 U/LAlanine Vragpaqhsyufatdm2412-14 U/L Alkaline Dktdqwmoxcy34200-538 U/LTotal Protein6.56.4-8.2 g/dLAlbumin Level3.5 3.4-5.0 g/dLGlobulin3.0Albumin Globulin Ratio1.2Performing Lab:see noteML - [facility] LBPTT Reviewed date:12/17/2024 03:32:32 PM Interpretation: Performing Lab: Notes/Report: [facility] ,Partial Thromboplastin Time28.022.3-36.2 secPerforming Lab:see [facility] - [facility] LBUA RANDOM W or MICROSCOPIC Reviewed date:12/17/2024 03:32:32 PM Interpretation: Performing Lab: Notes/Report: [facility] ,Color UrineLT. YELLOWYELLOWClarity UrineCLEARCLEARSpecific [place] Urine<=1.005 1.005-1.025pH Urine6.05.0-9.0Protein UrineNEGATIVENEG/TRACE mg/dLGlucose Urine AV716QECXEMWS mg/dLBilirubin UrineNEGATIVENEGATIVEKetones UrineNEGATIVENEGATIVE mg/dLBlood UrineSMALLNEGATIVENitrite UrineNEGATIVENEGATIVEUrobilinogen Urine0.2 0.2-1.0 EU/dLLeukocyte Esterase UrineNEGATIVENEGATIVEWBC UrineNONE SEENNONE SEEN #/HPFRBC Urine0-20-2 #/HPFBacteria UrineNONE SEENNONE SEEN #/HPFMucus UrineNONE SEENNONE SEENSquamous Epithelial Cell UrineRARENONE/RARE #/LPFCrystals Seen? None SeenNone Seen #/HPFCast Seen?NONE SEENNONE SEEN #/LPFPerforming Lab:see note - [facility] LBProthrombin Time INR Reviewed date:12/17/2024 03:32:32 PM Interpretation: Performing Lab: Notes/Report: [facility] ,Prothrombin Time11.39.0-11.6 secINR1.07 DESIRED INR: 2.0-3.0 CONDITIONS NOT LISTED BELOW 2.5-3.5 FOR PROSTHETIC HEART VALVE REPLACEMENT 2.5-3.5 RECURRENT THROMBOSIS Performing Lab:[facility] LBTroponin I High Sensitivity Reviewed date:12/17/2024 03:32:32 PM Interpretation: Performing Lab: Notes/Report: [facility] ,Troponin I High Mvmldxnglfw29.14.0-51.3 pg/mL CUT-OFF POINTS HAVE BEEN ESTABLISHED BASED ON THE FOURTH UNIVERSAL DEFINITION OF MYOCARDIAL INFARCTION. THE UPPER REFERENCE LIMIT (URL) OF TROPONIN, DEFINED THE 99TH PERCENTILE OF cTnI DISTRIBUTION IN A REFERENCE POPULATION, HAS BEEN CONFIRMED THE DECISION THRESHOLD FOR MO DIAGNOSIS. 99TH PERCENTILE = 51.4 PG/ML NOTE: HIGH-SENSITIVITY TROPONIN ASSAY IS NOT INTENDED TO BE USED IN ISOLATION BUT SHOULD BE INTERPRETED IN CONJUNCTION WITH OTHER DIAGNOSTIC AND CLINICAL INFORMATION. Performing Lab:see [facility] LBCT CHEST W CON Reviewed date:12/17/2024 03:32:32 PM Interpretation: Performing Lab: Notes/Report: Source Facility: [facility]-[address] [place] [address] [place] [address] CT Scan Report Signed Patient: ZACHARY MAYNARD MR#: [id number] : 1945 Acct:[id number] Age/Sex: 79 / F ADM Date: 12/17/24 Loc: ER Attending Dr: Ordering Physician: Mago Foreman Date of Service: 12/17/24 Procedure(s): CT chest w con Accession Number(s): [id number] cc: Adina Langley M.D. [place] [id number] Patient Name: ZACHARY MAYNARD MRN: [id number] date: 1945 Sex: F Assigned Patient Location: ED.MAIN Current Patient Location: ER Accession/Order Number: [id number] Exam Date: 12/17/2024 12:25 Report Date: 12/17/2024 [...] Bonds M.D. 12/17/2024 1:26 PM Dictation Location: [place] [address] Electronically authenticated by: [id number] Y Date: 12/17/2024 13:26 Dictated By: Xavier Bonds M.D. Signed By: 12/17/24 1329 DD/ 1326 TD/TT: Emergency Medical Service Coordinator:ECG 12 lead Reviewed date:12/18/2024 03:23:11 PM Interpretation: Performing Lab: Notes/Report: Source Facility: [place] [address] Electrocardiograph Report Signed Patient: ZACHARY MAYNARD MR#: [id number] : 1945 Acct:[id number] Age/Sex: 79 / F ADM Date: 12/17/24 Loc: ER Attending Dr: Ordering Physician: Mago Foreamn Date of Service: 12/17/24 Procedure(s): ECG 12 lead Accession Number(s): [id number] cc: [facility] Test Date: 2024-12-17 Pat Name: ZACHARY MAYNARD Department: Room: - Gender: Female Intranet Developer: : 1945 Requested By: ADINA LANGLEY Order Number: [id number] Jeannette MD: SCHUYLER ROBLERO M.D. Measurements Intervals Hagan Rate: 51 P: 37 CT: 152 QRS: 34 QRSD: 88 T: 42 QT: 474 QTc: 450 Interpretive Statements 1100 Sinus rhythm 9110 normal ECG Compared to ECG 02/25/2024 18:58:29 Left ventricular hypertrophy no longer present Left-axis deviation no longer present Electronically Signed On 12-17-2024 17:40:14 EDT by SCHUYLER ROBLERO M.D. Dictated By: SCHUYLER ROBLERO Signed By: 12/17/24 1740 DD/ 1103 TD/TT: Emergency Medical Service Coordinator:CT head/brain wo con Reviewed date:12/17/2024 03:32:32 PM Interpretation: Performing Lab: Notes/Report: Source Facility: [place] [address] CT Scan Report Signed Patient: ZACHARY MAYNARD MR#: [id number] : 1945 Acct:[id number] Age/Sex: 79 / F ADM Date: 12/17/24 Loc: ER Attending Dr: Ordering Physician: Mago Foreman Date of Service: 12/17/24 Procedure(s): CT head/brain wo con Accession Number(s): [id number] cc: Adina Langley M.D. [place] [id number] Patient Name: ZACHARY MAYNARD MRN: [id number] date: 1945 Sex: F Assigned Patient Location: ED.MAIN Current Patient Location: ER Accession/Order Number: [id number] Exam Date: 12/17/2024 12:25 Report Date: 12/17/2024 [...] Bonds M.D. 12/17/2024 1:10 PM Dictation Location: [place] [address] Electronically authenticated by: [id number] Y Date: 12/17/2024 13:10 Dictated By: Xavier Bonds M.D. Signed By: 12/17/24 1312 DD/ 1310 TD/TT: Emergency Medical Service Coordinator:CT abdomen pelvis w con Reviewed date:12/17/2024 03:32:32 PM Interpretation: Performing Lab: Notes/Report: Source Facility: [facility]-[address] [place] [address] [place] [address] CT Scan Report Signed Patient: ZACHARY MAYNARD MR#: [id number] : 1945 Acct:[id number] Age/Sex: 79 / F ADM Date: 12/17/24 Loc: ER Attending Dr: Ordering Physician: Mago Foreman Date of Service: 12/17/24 Procedure(s): CT abdomen pelvis w con Accession Number(s): [id number] cc: Adina Langley M.D. [place] [address] Patient Name: ZACHARY MAYNARD MRN: [facility]:[id number] date: 1945 Sex: F Assigned Patient Location: ED.MAIN Current Patient Location: ER Accession/Order Number: [id number] Exam Date: 12/17/2024 12:25 Report Date: 12/17/2024 [...] Bonds M.D. 12/17/2024 1:26 PM Dictation Location: [place] [address] Electronically authenticated by: [id number] Y Date: 12/17/2024 13:26 Dictated By: Xavier Bonds M.D. Signed By: 12/17/24 1330 DD/ 1326 TD/TT: Emergency Medical Service Coordinator:CT cervical spine wo con Reviewed date:12/17/2024 03:32:32 PM Interpretation: Performing Lab: Notes/Report: Source Facility: [place] [address] CT Scan Report Signed Patient: ZACHARY MAYNARD MR#: [id number] : 1945 Acct:[id number] Age/Sex: 79 / F ADM Date: 12/17/24 Loc: ER Attending Dr: Ordering Physician: Mago Foreman Date of Service: 12/17/24 Procedure(s): CT cervical spine wo con Accession Number(s): [id number] cc: Adina Langley M.D. [place] [address] Patient Name: ZACHARY MAYNARD MRN: [id number] date: 1945 Sex: F Assigned Patient Location: ER Current Patient Location: ER Accession/Order Number: [id number] Exam Date: 12/17/2024 12:25 Report Date: 12/17/2024 [...] Bonds M.D. 12/17/2024 1:10 PM Dictation Location: [place] [address] Electronically authenticated by: [id number] Y Date: 12/17/2024 13:10 Dictated By: Xavier Bonds M.D. Signed By: 12/17/24 1313 DD/ 1310 TD/TT: Emergency Medical Service Coordinator:Urine Culture - [facility] (Not yet reviewed by provider) Interpretation: Performing Lab: Notes/Report: [facility] ,Urine Culture - FRMCSee Below For Report Urine Culture - [facility] <9,000 colonies/ml mixed Urine Culture - FRMCbacterial skin contaminants Urine Culture - [facility] <9,000 colonies/ml mixed Urine Culture - [facility]2 Days Urine Culture - [facility] <9,000 colonies/ml mixed Urine Culture - [facility] Urine Culture [facility] <9,000 colonies/ml mixed Urine Culture - [facility]MCTesting performed at [facility] Urine Culture - [facility] <9,000 colonies/ml mixed Urine Culture - [address] [place] [address] Urine Culture - [facility] <9,000 colonies/ml mixed Performing Lab:see noteML - [facility] LBBNP Reviewed date:12/29/2024 04:52:32 PM Interpretation: Performing Lab: Notes/Report: [facility] ,NT Pro B Type Natriuretic Estb8039.0<=1800.0 pg/mLRESULTS CALLED TO DR. ESTRADA Performing Lab:see note - [facility] LBCBC AUTO DIFF Reviewed date:12/29/2024 04:52:32 PM Interpretation: Performing Lab: Notes/Report: [facility] ,White Blood Count7.44.0-11.0 10 3/uLRed Blood Count3.604.20-5.40 10 6/uL Zdzwmmyndh73.812.0-16.0 g/bDRkphjtlmwy66.736.0-48.0 %Mean Corpuscular Vmmbmu09.4 81.0-99.0 fLMean Corpuscular Nvwdlfzxnm42.026.7-34.0 pgMean Corpuscular HGB Conc 31.129.9-35.2 g/dLRed Cell Distribution Width14.311.0-15.0 %Platelet Nishn664 150-450 10 3/uLMean Platelet Dmronk44.29.5-13.5 fLNeutrophils Percent Auto75.0 43.0-75.0 %Lymphocytes Percent Auto15.220.5-60.0 %Monocytes Percent Auto6.51.7- 12.0 %Eosinophils Percent Auto2.30.9-7.0 %Basophils Percent Auto0.30.2-2.0 % Immature Granulocytes Pct Auto0.70.0-0.5 %Neutrophils Absolute Auto5.61.4-6.5 10 3/uLLymphocytes Absolute Auto1.11.2-3.8 10 3/uLMonocytes Absolute Auto0.50.3- 0.8 10 3/uLEosinophils Absolute Auto0.20.0-0.7 10 3/uLBasophils Absolute Auto0.0 0.0-0.1 10 3/uLImmature Granulocytes Abs Auto0.050.00-0.03 10 3/uLPerforming Lab:see noteML - [facility] LBD-DIMER Reviewed date:12/29/2024 04:52:32 PM Interpretation: Performing Lab: Notes/Report: [facility] ,D Dimer2.02<=0.59 mg/L FEU RESULTS CALLED [...] and generalized hospitalization. Performing Lab:see noteML - [facility] LBPROF 14(COMP METB) Reviewed date:12/29/2024 04:52:32 PM Interpretation: Performing Lab: Notes/Report: [facility] ,Hxffxh302256-728 mmol/LPotassium3.63.5-5.1 mmol/CPjlakgxf63676-951 mmol/LCarbon Oriwsgx88.721.0-32.0 mmol/LAnion Gap10.4Kifzpcw75391-693 mg/dLBlood Urea Hyedyrvh90.07.0-18.0 mg/dLCreatinine1.230.55-1.02 mg/dLEstimated GFR ( Uefalip45>=60 mL/min/1.73m 2Estimated GFR (Non- Ame42>=60 mL/min/1.73m 2 BUN Creatinine Ratio14.5Yigdynr5.68.5-10.1 mg/dLBilirubin Total0.40.2-1.0 mg/dL Aspartate Amino Hhdwytiebbd9334-08 U/LAlanine Atdmiexfnqmwzfyi0386-61 U/L Alkaline Bxhxdvcxphi42250-173 U/LTotal Protein5.96.4-8.2 g/dLAlbumin Level2.8 3.4-5.0 g/dLGlobulin3.1Albumin Globulin Ratio0.9Performing Lab:see noteML - [facility] LBUA (CLEAN or CATCH) LEDGER CLERK or MICRO IF IND. Reviewed date:12/29/2024 04:52:32 PM Interpretation: Performing Lab: Notes/Report: [facility] ,Color UrineLT. YELLOWYELLOWClarity UrineCLEARCLEARSpecific [place] Urine1.010 1.005-1.025pH Urine6.05.0-9.0Protein UrineNEGATIVENEG/TRACE mg/dLGlucose Urine UANEGATIVENEGATIVE mg/dLBilirubin UrineNEGATIVENEGATIVEKetones UrineNEGATIVE NEGATIVE mg/dLBlood UrineNEGATIVENEGATIVENitrite UrineNEGATIVENEGATIVE Urobilinogen Urine1.00.2-1.0 EU/dLLeukocyte Esterase UrineMODERATENEGATIVEUrine Microscopic IndicatedYESPerforming Lab:see noteML - [facility] LB URINE MICROSCOPIC ONLY Reviewed date:12/29/2024 04:52:32 PM Interpretation: Performing Lab: Notes/Report: [facility] ,WBC Lxuqj89-95BWQW SEEN #/HPFRBC Urine0-20-2 #/HPFBacteria UrineSMALLNONE SEEN #/HPFMucus UrineSMALLNONE SEENSquamous Epithelial Cell UrineFEWNONE/RARE #/LPF Transitional Epi Cells UrineRARENONE SEEN #/LPFCrystals Seen?None SeenNone Seen #/HPFCast Seen?SEENNONE SEEN #/LPFHyaline Casts UrineRAREUrine Culture Indicated YES-FRMCPerforming Lab:see noteML - [facility] LBTroponin I High Sensitivity Reviewed date:12/29/2024 04:52:32 PM Interpretation: Performing Lab: Notes/Report: [facility] ,Troponin I High Jzvptozfblh73.54.0-51.3 pg/mL CUT-OFF POINTS HAVE BEEN ESTABLISHED BASED ON THE FOURTH UNIVERSAL DEFINITION OF MYOCARDIAL INFARCTION. THE UPPER REFERENCE LIMIT (URL) OF TROPONIN, DEFINED THE 99TH PERCENTILE OF cTnI DISTRIBUTION IN A REFERENCE POPULATION, HAS BEEN CONFIRMED THE DECISION THRESHOLD FOR MO DIAGNOSIS. 99TH PERCENTILE = 51.4 PG/ML NOTE: HIGH-SENSITIVITY TROPONIN ASSAY IS NOT INTENDED TO BE USED IN ISOLATION BUT SHOULD BE INTERPRETED IN CONJUNCTION WITH OTHER DIAGNOSTIC AND CLINICAL INFORMATION. Performing Lab:see noteML - [facility] 12 lead Reviewed date:12/30/2024 12:47:51 PM Interpretation: Performing Lab: Notes/Report: Source Facility: [place] [address] Electrocardiograph Report Signed Patient: ZACHARY MAYNARD MR#: [id number] : 1945 Acct:[id number] Age/Sex: 79 / F ADM Date: 12/29/24 Loc: MS 230-[address]: Nena Barron M.D. Ordering Physician: Jaclyn Estrada Date of Service: 12/29/24 Procedure(s): ECG 12 lead Accession Number(s): [id number] cc: [facility] Test Date: 2024-12-29 Pat Name: ZACHARY MAYNARD Department: Room: - Gender: Female Intranet Developer: : 1945 Requested By: ADINA LANGLEY Order Number: [id number] Jeannette MD: SCHUYLER ROBLERO M.D. Measurements Intervals Hagan Rate: 53 P: 259 CT: 134 QRS: -12 QRSD: 84 T: 43 QT: 466 QTc: 450 Interpretive Statements ECTOPIC ATRIAL RHYTHM 9140 abnormal rhythm ECG Compared to ECG 12/17/2024 11:03:35 Ectopic atrial rhythm now present Electronically Signed On 12-30-2024 7:18:29 EST by SCHUYLER ROBLERO M.D. Dictated By: SCHUYLER ROBLERO Signed By: 12/30/24 0718 DD/ 1157 TD/TT: Emergency Medical Service Coordinator:XR chest 1V Reviewed date:12/29/2024 04:52:32 PM Interpretation: Performing Lab: Notes/Report: Source Facility: [place] [address] XRay Report Signed Patient: ZACHARY MAYNARD MR#: [id number] : 1945 Acct:[id number] Age/Sex: 79 / F ADM Date: 12/29/24 Loc: ER Attending Dr: Ordering Physician: Jaclyn Estrada Date of Service: 12/29/24 Procedure(s): XR chest 1V Accession Number(s): [id number] cc: Adina Langley M.D.; Jaclyn Estrada [place] [address] Patient Name: ZACHARY MAYNARD MRN: [id number] date: 1945 Sex: F Assigned Patient Location: ER Current Patient Location: ED.MAIN Accession/Order Number: [id number] Exam Date: 12/29/2024 12:22 Report Date: 12/29/2024 12:37 At the request of: JACLYN ESTRADA MD Procedure: XR chest 1V PA CHEST: CLINICAL HISTORY: sob COMPARISON: CT chest 12/17/2024 Mildly enlarged cardiomediastinal silhouette. Lungs clear. No effusion or pneumothorax. Aortic knob calcification. XR/XR chest 1V IMPRESSION: NEGATIVE ACUTE PLEURAL-PARENCHYMAL DISEASE. Impression dictated by: Ariel Dawkins M.D. 12/29/2024 12:37 PM Dictation Location: [place] [address] Electronically authenticated by: [id number] Y Date: 12/29/2024 12:37 Dictated By: Ariel Dawkins M.D. Signed By: 12/29/24 1240 DD/ 1237 TD/TT: Emergency Medical Service Coordinator:CT angio chest Reviewed date:12/29/2024 05:27:30 PM Interpretation: Performing Lab: Notes/Report: Source Facility: [place] [address] CT Scan Report Signed Patient: ZACHARY MAYNARD MR#: [id number] : 1945 Acct:[id number] Age/Sex: 79 / F ADM Date: 12/29/24 Loc: ER Attending Dr: Ordering Physician: Jaclyn Estrada Date of Service: 12/29/24 Procedure(s): CT angio chest Accession Number(s): [id number] cc: Adina Langley M.D. [place] [address] Patient Name: ZACHARY MAYNARD MRN: [id number] date: 1945 Sex: F Assigned Patient Location: ER Current Patient Location: ER Accession/Order Number: [id number] Exam Date: 12/29/2024 16:00 Report Date: 12/29/2024 [...] Nuñez M.D. 12/29/2024 4:56 PM Dictation Location: [place] [address] Electronically authenticated by: [id number] Y Date: 12/29/2024 16:56 Dictated By: Louie Nuñez D.O. Signed By: 12/29/241658 DD/ 55 TD/TT: Emergency Medical Service Coordinator:CT stroke head/brain wo con Reviewed date:12/29/2024 04:52:32 PM Interpretation: Performing Lab: Notes/Report: Source Facility: [place] [address] CT Scan Report Signed Patient: ZACHARY MAYNARD MR#: [id number] : 1945 Acct:[id number] Age/Sex: 79 / F ADM Date: 12/29/24 Loc: ER Attending Dr: Ordering Physician: Jaclyn Estrada Date of Service: 12/29/24 Procedure(s): CT stroke head/brain wo con Accession Number(s): [id number] cc: Adina Langley M.D. [place] [address] Patient Name: ZACHARY MAYNARD MRN: [id number] date: 1945 Sex: F Assigned Patient Location: ER Current Patient Location: ED.MAIN Accession/Order Number: [id number] Exam Date: 12/29/2024 12:25 Report Date: 12/29/2024 [...] Dawkins M.D. 12/29/2024 12:41 PM Dictation Location: [place] [address] Electronically authenticated by: [id number] Y Date: 12/29/2024 12:41 Dictated By: Ariel Dawkins M.D. Signed By: 12/29/24 1243 DD/ 1241 TD/TT: Emergency Medical Service Coordinator:Troponin I High Sensitivity Reviewed date:12/29/2024 04:52:32 PM Interpretation: Performing Lab: Notes/Report: [facility] ,Troponin I High Ezppnqdahsl45.74.0-51.3 pg/mL CUT-OFF POINTS HAVE BEEN ESTABLISHED BASED ON THE FOURTH UNIVERSAL DEFINITION OF MYOCARDIAL INFARCTION. THE UPPER REFERENCE LIMIT (URL) OF TROPONIN, DEFINED THE 99TH PERCENTILE OF cTnI DISTRIBUTION IN A REFERENCE POPULATION, HAS BEEN CONFIRMED THE DECISION THRESHOLD FOR MO DIAGNOSIS. 99TH PERCENTILE = 51.4 PG/ML NOTE: HIGH-SENSITIVITY TROPONIN ASSAY IS NOT INTENDED TO BE USED IN ISOLATION BUT SHOULD BE INTERPRETED IN CONJUNCTION WITH OTHER DIAGNOSTIC AND CLINICAL INFORMATION. Performing Lab:see noteML - [facility] LBMAGNESIUM Reviewed date:12/30/2024 12:47:51 PM Interpretation: Performing Lab: Notes/Report: [facility] ,Magnesium2.01.8-2.4 mg/dLPerforming Lab:see noteML - [facility] LB PROF 14(COMP METB) Reviewed date:12/30/2024 12:47:51 PM Interpretation: Performing Lab: Notes/Report: [facility] ,Sekiyn505382-238 mmol/LPotassium3.53.5-5.1 mmol/OJkxwipds86603-508 mmol/LCarbon Bzqfoyc82.921.0-32.0 mmol/LAnion Gap10.9Uroinun5407-507 mg/dLBlood Urea Mecuebgd59.07.0-18.0 mg/dLCreatinine1.080.55-1.02 mg/dLEstimated GFR ( Yiojnie62>=60 mL/min/1.73m 2Estimated GFR (Non- Ame49>=60 mL/min/1.73m 2 BUN Creatinine Ratio15.2Xqfyvec3.68.5-10.1 mg/dLBilirubin Total0.50.2-1.0 mg/dL Aspartate Amino Zvshmzuffig7955-62 U/LAlanine Qoicvnrgtaznmiek2835-94 U/L Alkaline Yqciwscyrbb62802-163 U/LTotal Protein5.26.4-8.2 g/dLAlbumin Level2.5 3.4-5.0 g/dLGlobulin2.7Albumin Globulin Ratio0.9Performing Lab:see note - [facility] LBTS Reviewed date:12/30/2024 12:47:51 PM Interpretation: Performing Lab: Notes/Report: [facility] ,Thyroid Stimulating Hormone1.9940.358-3.740 uIU/mLPerforming Lab:see note - [facility] LBCBC no Diff (Hemogram) Reviewed date:12/30/2024 12:47:51 PM Interpretation: Performing Lab: Notes/Report: [facility] ,White Blood Count5.84.0-11.0 10 3/uLRed Blood Count3.414.20-5.40 10 6/uL Hemoglobin9.912.0-16.0 g/uPZibspomuiy71.036.0-48.0 %Mean Corpuscular Bqyhoi32.8 81.0-99.0 fLMean Corpuscular Yveawyhiqv14.026.7-34.0 pgMean Corpuscular HGB Conc 30.929.9-35.2 g/dLRed Cell Distribution Width14.611.0-15.0 %Platelet Dkiqr489 150-450 10 3/uLMean Platelet Pahhsj20.49.5-13.5 fLPerforming Lab:see note - [facility] LBECG 12 lead Reviewed date:12/30/2024 12:47:51 PM Interpretation: Performing Lab: Notes/Report: Source Facility: [place] [id number] Electrocardiograph Report Signed Patient: ZACHARY MAYNARD MR#: [id number] : 1945 Acct:[id number] Age/Sex: 79 / F ADM Date: 12/29/24 Loc: [place] 230-[address]: Nena Barron M.D. Ordering Physician: Nena Barron M.D. Date of Service: 12/30/24 Procedure(s): ECG 12 lead Accession Number(s): [id number] cc: [facility] Test Date: 2024-12-30 Pat Name: ZACHARY MAYNARD Department: Room: Formerly named [facility] Gender: Female Intranet Developer: : 1945 Requested By: [id number] Order Number: [id number] Reading MD: SCHUYLER ROBLERO M.D. Measurements Intervals Hagan Rate: 60 P: -72 CT: 131 QRS: 0 QRSD: 93 T: 39 QT: 359 QTc: 359 Interpretive Statements NORMAL SINUS RHYTHM SINUS ARRHYTHMIA NONSPECIFIC ST T-WAVE ABNORMALITY ABNORMAL ECG Compared to ECG 12/29/2024 11:57:11 ST T-wave abnormality now present Ectopic atrial rhythm no longer present Electronically Signed On 12-30-2024 7:25:53 EST by SCHUYLER ROBLERO M.D. Dictated By: SCHUYLER ROBLERO Signed By: 12/30/24725 DD/ 7 TD/TT: Emergency Medical Service Coordinator:PROF NATIVIDAD Youssef ([facility]) Reviewed date:12/31/2024 04:07:24 PM Interpretation: Performing Lab: Notes/Report: [facility] ,Kqdqgx803433-529 mmol/LPotassium3.53.5-5.1 mmol/ITrfmikwe27948-949 mmol/LCarbon Xnfuawl83.321.0-32.0 mmol/LAnion Gap11.3Wwmoyla4044-659 mg/dLBlood Urea Vgrnlenu41.07.0-18.0 mg/dLCreatinine1.210.55-1.02 mg/dLEstimated GFR ( Tjovzzs00>=60 mL/min/1.73m 2Estimated GFR (Non- Ame43>=60 mL/min/1.73m 2 BUN Creatinine Ratio15.3Pgthmmt7.68.5-10.1 mg/dLPerforming Lab:see noteML - [facility] LBCBC no Diff (Hemogram) Reviewed date:12/31/2024 04:07:24 PM Interpretation: Performing Lab: Notes/Report: [facility] ,White Blood Count5.54.0-11.0 10 3/uLRed Blood Count3.414.20-5.40 10 6/uL Kzuhkukfdp87.212.0-16.0 g/vRUbiscwmkdu59.536.0-48.0 %Mean Corpuscular Kuvtnn70.3 81.0-99.0 fLMean Corpuscular Lyqsqonhfc79.926.7-34.0 pgMean Corpuscular HGB Conc 31.429.9-35.2 g/dLRed Cell Distribution Width14.811.0-15.0 %Platelet Imcvb593 150-450 10 3/uLMean Platelet Rpacex59.49.5-13.5 fLPerforming Lab:see note - [facility] LBPROF CHEM 8 (BAS METB) (Not yet reviewed by provider) Interpretation: Performing Lab: Notes/Report: [facility] ,Inzkqg444376-585 mmol/LPotassium3.73.5-5.1 mmol/BKsrnhhgc02256-120 mmol/LCarbon Svzjnpj14.521.0-32.0 mmol/LAnion Gap11.6Rqktdeu3885-667 mg/dLBlood Urea Lawqscva78.07.0-18.0 mg/dLCreatinine1.520.55-1.02 mg/dLEstimated GFR ( Vrgdigh47>=60 mL/min/1.73m 2Estimated GFR (Non- Ame33>=60 mL/min/1.73m 2 BUN Creatinine Ratio14.4Jocnvfi7.18.5-10.1 mg/dLPerforming Lab:see noteML - [facility] LB Reason For Referral Diagnosis 1 Weakness (R53.1) Referral Organization [facility] Referring Provider First Name Enio [...] using the HandiHaler device Inhalation Once a phvYGH525ActiveFerrous Sulfate 325 (65 Fe) MG1 tablet Orally BID5ActiveLiothyronine Sodium 5 MCGTAKE 2 TABLETS ON AN EMPTY STOMACH ORALLY ONCE A DAY 30 DAYS; Duration: 90 daysActive Meclizine HCl 25 MGTAKE 1-2 TABLETS BY MOUTH THREE TIMES A DAY NEEDED.; Duration: 15ActiveMemantine HCl ER 21 MGTAKE 1 CAPSULE BY MOUTH EVERY DAY; Duration: 90 daysActiveAdbry 300 MG/2MLas directed Qykhmmywsjdm77/18/2025Active Ondansetron 4 MG1 tablet on the tongue [...] Date Status Comme nts Flu, Fluad () (02562) 65 yrs+, single-dose syringe IM Intramuscular 12/25/2022 Administered Flu, Fluad (49852) 65 yrs and older, single-dose syringe (0226-8841)IM Yabcuvqlptzmv03/14/2024AdministeredFlu, Fluad (48686) 65 yrs and older, single- dose syringe (5630-8540)IM Knvrwrgdbkcaf77/22/2025Administered Social History Tobacco Use: Social History Observation Description Date Details (start date - stop date) Former Smoker NA - 02/24/2010 Tobacco Use/Smoking Question Answer Notes Patient is a former smoker When did you stop smoking?02/24/2010lcohol Screen (Audit-C) Question Answer Notes Did you have a drink containing alcohol in the p ast year? No Vycqlp9YoeedyffexrvceRcarysymXLZKU-X (Standard) Question Answer Notes Did you have a drink containing alcohol in the p ast year? No Wsjerz4FyaunwsfaofdccJgbbpsdl Problems Problem Type SNOMED Code ICD Code Onset Dates Problem Status W/U Status Risk Notes Problem Essential hypertension (53562269 ) Essential (primary) hypertension (I10) ActiveconfirmedProblemSyncope and collapse (924562723)Syncope and collapse (R55) ActiveconfirmedProblemTinea corporis (42596036)Tinea corporis (B35.4)Active confirmedProblemBenign neoplasm of meninges (561465158)Benign neoplasm of meninges, unspecified (D32.9)ActiveconfirmedProblemDiabetic peripheral neuropathy associated with type 2 diabetes mellitus (2092471181233)Type 2 diabetes mellitus with diabetic neuropathy, unspecified (E11.40)Activeconfirmed ProblemDrug-induced myopathy (744636067)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)Active confirmedProblemBlepharochalasis (87160273)Blepharochalasis unspecified eye, 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)ActiveconfirmedProblemVentricular fibrillation (77817556)Ventricular fibrillation (I49.01)ActiveconfirmedProblemUncomplicated asthma (disorder) (020907221)Unspecified asthma, uncomplicated (J45.909)Active confirmedProblemDiverticula of intestine (92963910)Diverticulosis of intestine, part unspecified, without perforation or abscess without bleeding (K57.90)Active confirmedProblemConstipation (88194555)Constipation, unspecified (K59.00)Active confirmedProblemVesicular eczema (disorder) (510693849)Dyshidrosis [pompholyx] (L30.1)ActiveconfirmedProblemPain of right shoulder region (finding) (8443908275)Pain in right shoulder (M25.511)ActiveconfirmedProblemPolymyalgia rheumatica (87958569)Polymyalgia rheumatica (M35.3)ActiveconfirmedProblemMuscle weakness (17108291)Muscle weakness (generalized) (M62.81)ActiveconfirmedProblem Fibromyalgia (286859364)Fibromyalgia (M79.7)ActiveconfirmedProblemDisorder of bone (92315146)Other specified disorders of bone density and structure, unspecified site (M85.80)ActiveconfirmedProblemArteriovenous malformation (47954646)Arteriovenous malformation, site unspecified (Q27.30)Activeconfirmed ProblemSpasm (45269717)Cramp and spasm (R25.2)ActiveconfirmedProblemFrequency of micturition (687865721)Frequency of micturition (R35.0)ActiveconfirmedProblem Localized edema (6949496)Localized edema (R60.0)ActiveconfirmedProblemOther injury of muscle, fascia and tendon of lower back, initial encounter (S39.092A) ActiveconfirmedProblemPostmenopausal state (94939767)Asymptomatic menopausal state (Z78.0)ActiveconfirmedProblemAtrial fibrillation (35016494)Atrial fibrillation (I48.91)ActiveconfirmedProblemOsteoarthritis (917664236) Osteoarthritis (M19.90)ActiveconfirmedProblemAsthma (455953707)Asthma (J45.909) ActiveconfirmedProblemGastroesophageal reflux disease (773798875)GERD (gastroesophageal reflux disease) (K21.9)ActiveconfirmedProblemAtrial fibrillation (disorder) (31057310)Afib (I48.91)ActiveconfirmedProblemHypothyroid (41615855)Hypothyroid (E03.9)ActiveconfirmedProblemArteriovenous malformation (53744615)Arterio-venous malformation (Q27.30)ActiveconfirmedProblemOsteopenia (097086215)Osteopenia (M85.80)ActiveconfirmedProblemDyspnea (456853888)Dyspnea (R06.00)ActiveconfirmedProblemVertigo (216087561)Vertigo (R42)Activeconfirmed ProblemEczema (43707821)Eczema (L30.9)ActiveconfirmedProblemSinus tachycardia (72630790)Sinus tachycardia (R00.0)ActiveconfirmedProblemPain of right knee region (finding) (155162858047999)Knee pain, right (M25.561)Activeconfirmed ProblemEdema (774119820)Edema leg (R60.0)ActiveconfirmedProblemAcute bronchitis (30331560)Acute bronchitis (J20.9)ActiveconfirmedProblemVaricose veins (810154459)Varicose veins (I86.8)ActiveconfirmedProblemHypoglycemia (789970099) Hypoglycemia (E16.2)ActiveconfirmedProblemDiverticulitis (99553661) Diverticulitis (K57.92)ActiveconfirmedProblemPlantar fasciitis (272306477) Plantar fasciitis (M72.2)ActiveconfirmedProblemBenign neoplasm of cerebral meninges (31619087)Meningioma (D32.9)ActiveconfirmedProblemNear syncope (945294367)Near syncope (R55)ActiveconfirmedProblemGallstones (353298188) Gallstones (K80.20)ActiveconfirmedProblemRight upper quadrant pain (846315541) Right upper quadrant abdominal pain (R10.11)ActiveconfirmedProblem Gastroenteritis (50656437)Gastroenteritis (K52.9)ActiveconfirmedProblemEasy bruising (554478891)Easy bruisability (R23.8)ActiveconfirmedProblemOverweight (236693796)Over weight (E66.3)ActiveconfirmedProblemDyshidrotic eczema (084845510)Dyshidrotic eczema (L30.1)ActiveconfirmedProblemNevus (9748199065) Nevus (D22.9)ActiveconfirmedProblemCervical strain (854786144)Cervical strain (S16.1XXA)ActiveconfirmedProblemDiverticular disease (191706984)Diverticular disease (K57.90)ActiveconfirmedProblemAcute bronchiolitis (1046659)Acute bronchiolitis (J21.9)ActiveconfirmedProblemCramp in lower limb (550992238)Leg cramp (R25.2)ActiveconfirmedProblemPruritic disorders (717433078)Pruritic condition (L29.9)ActiveconfirmedProblemChronic obstructive pulmonary disease (40269737)Advanced COPD (J44.9)ActiveconfirmedProblemAcute cystitis (43101214) Acute cystitis (N30.00)ActiveconfirmedProblemAcute urinary tract infection (929057019)Acute UTI (N39.0)ActiveconfirmedProblemDiabetic peripheral neuropathy associated with type 2 diabetes mellitus (6169504921340)Neuropathy, diabetic (E11.40)ActiveconfirmedProblemDementia (38710724)Advanced dementia (F03.90) ActiveconfirmedProblemAt risk for falls (892677415)At risk for falls (Z91.81) ActiveconfirmedProblemBenign mammary dysplasia (42318147)Benign mammary dysplasia (N60.99)ActiveconfirmedProblemAcute heart failure (30602812)Acute heart failure (I50.9)ActiveconfirmedProblemEssential hypertension (83213458)BP (high blood pressure) (I10)ActiveconfirmedProblemPure hypercholesterolemia (306339747)Pure hypercholesterolemia, unspecified (E78.00)ActiveconfirmedProblem Type II diabetes mellitus without complication (744597788)Diabetes (E11.9)Active confirmedProblemDiabetes mellitus (97582011)Diabetes mellitus (E11.9)Active confirmedProblemChronic kidney disease stage 3A (disorder) (208731022)Chronic kidney disease, stage 3a (N18.31)ActiveconfirmedProblemLow back pain (870229945) Low back pain, unspecified (M54.50)Activeconfirmed Vital Signs Heart Rate 51 /min 12/15/2024 Ugeyuflprsw25.2 degrees Clexgrlfbt18/31/1581Wceswmks09 %12/15/2024lood pressure mm Hg12/20/20240233Etqnmf57 in12/20/2024lood pressure mm Hg12/20/20246572Itrwoo069.8 lbs1MI30.25 kg/m212/20/2024 Procedures Procedure Date Ordered Date Performed Result Body Sit e Echocardiogram 08/16/2024 N/AHolter Monitor - 3 days up to 14 days12/20/2024N/A*CARDIO Stress Test - Lexiscan Wsijnao0212/20/2024N/A Encounters Encounter Location Date Provider Diagnosis [address] [address] 03/26/2024 Enio Hoy Diverticulitis K57.[address] [address] 05/28/2024 Enio Hoy Acute bronchiolitis J21.[address] [address] 07/21/2024 Enio Hoy Burning with urinati on R30.0 ; Pain in right shoulder M25.511 and Acute UTI N39.[address] [address] 08/16/2024 Enio Hoy UTI (urinary tract infection) N39.0 ; Advanced dementia F03.90 ; Chronic kidney disease, stage 3a N18.31 ; Tinea corporis B35.4 and Dyspnea R06.[address] [address] 08/31/2024 Enio Hoy Right upper quadrant abdominal pain R10.11 and Weakness R53.[address] [address] 10/20/2024 Enio Hoy Type 2 diabetes mellitus with diabetic neuropathy, unspecified E11.40 ; Afib I48.91 ; Hypothyroid E03.9 ; Essential (primary) hypertension I10 ; Diabetes E11.9 ; Acute UTI N39.0 and Dysuria R30.0 [facility] [address] [facility] [place] [address] 03/03/2024 Enio Langley Advanced COPD J44.9 ; Acute heart failure I50.9 ; Ventricular fibrillation I49.01 ; Neuropathy, diabetic E11.40 ; Type 2 diabetes mellitus with diabetic neuropathy, unspecified E11.40 ; Atrial fibrillation I48.91 and Afib I48.91 [facility] [address] [facility] [place] [address] 03/08/2024 Enio Langley Essential (primary) hypertension I10 [facility] [address] [facility] [place] [address] 12/20/2024 Enio Langley Near syncope R55 [facility] [address] [place] [address] 01/28/2024 Valerio Wang [facility] [facility] [place] [address] 12/15/2024Doug HoyAcute non-recurrent sinusitis, unspecified location J01.90 ; Nasal congestion R09.81 and Encounter for immunization J14EprfpuwMem[facility] [facility] [place] [address]Doug [facility] [facility] [place] [address] Enio [facility] [facility] [place] [address]ou[facility] [facility] [place] [address]ouBro[facility] [facility] [place] [place] [address]ouBrookline Hospital[address] [facility] [place] [address]Doug [facility] [facility] [place] [address]/13/2025 [facility] [place] [address]/Doug [facility] [place] [address]/04/2024Doug [facility] [place] [address]/06/2024Doug HoyLeft arm pain M79.602 [facility] [place] [address] 04/01/2024Doug HoyLeft wrist pain M25.532[facility] [facility] [place] [address]/08/2024Doug [facility] [facility] [place] [address]/Doug [facility] [facility] [place] [address]/05/2024 Enio HoyAcute bronchiolitis J21.9BDenver Springs[address] [facility] [place] [address]/Doug [facility] [address] [facility] [place] [address]/01/2025Do[facility] [place] [place] [address]/01/2025[facility]ila[facility] [place] [address]/ Enio HoyHypothyroid E03.9 ; Acute heart failure I50.9 and SOB (shortness of breath) R06.02BVAdventhealth Parker[address] [place] [address]/Doug [facility] [place] [address]/Doug [facility] [place] [address]/Doug [facility] [facility] [place] [address]/Doug HoyGallstones K80.20[facility] [facility] [place] [address]/Doug [facility] [facility] [place] [address]/03/2024Doug [facility] [facility] [place] [address]/Doug HoyBAnimas Surgical [facility] [place] [place] [address]/Doug HoyAcute non- recurrent sinusitis, unspecified location J01.90[facility] [address] [facility] [place] [address]/06/2024Doug [facility] [facility] [place] [address]/06/2024Doug Hoy [facility] [facility] [place] [address] 10/26/2024Doug Korin Assessments Encounter Date Diagnosis (ICD Code) Assessment Notes Treatment Notes Treatment Clinical Notes Section Notes 03/03/2024 Advanced COPD (ICD-10 - J44.9) 03/08/2024Essential (primary) hypertension (ICD-10 - I10)fatigue an hypotension -near syncope - stiopping dsitfsqnf52/31/2025Diverticulitis (ICD-10 - K57.92) 5Acute bronchiolitis (ICD-10 - J21.9)07/21/2024urning with urination (ICD-10 - R30.0)07/21/2024Pain in right shoulder (ICD-10 - M25.511)08/16/2024UTI (urinary tract infection) (ICD-10 - N39.0)chekcing urine culer and urnifro qcrhtxj4408/16/2024dvanced dementia (ICD-10 - F03.90)memory part pretty stable no argument from qfvryji1008/31/2024Right upper quadrant abdominal pain (ICD-10 - R10.11)08/31/2024Weakness (ICD-10 - R53.1)10/20/2024Type 2 diabetes mellitus with diabetic neuropathy, unspecified (ICD-10 - E11.40)10/20/2024fib (ICD-10 - I48.91)rate qehluvljg22/27/2025Near syncope (ICD-10 - R55)03/31/2024Left arm pain (ICD-10 - M79.602)04/01/2024Left wrist pain (ICD-10 - M25.532)05/28/2024 Acute bronchiolitis (ICD-10 - J21.9)08/16/2024Hypothyroid (ICD-10 - E03.9) 08/16/2024ute heart failure (ICD-10 - I50.9)5Acute non-recurrent sinusitis, unspecified location (ICD-10 - J01.90)Rest and drink more liquids, especially water. You may use a humidifier or vaporizer to help keep the drainage moist. Kkcc-mdm-jswagcx Nasal Saline may help the stuffy and runny nose. Use Ibuprofen and or Tylenol as needed for fever, chills, body aches or pain. Children 5 years old should not be given lwcv-sjz-nticoyq cough and cold medications such as guaifenesin and dextromethorphan. If you're over age 5, you may try ceiw-mrn-tuyovlu cold medications such as guaifenesin and dextromethorphan, [...] N39.0)03/03/2024 Acute heart failure (ICD-10 - I50.9)seein wfjdsvbsimo55/08/2025Ventricular fibrillation (ICD-10 - I49.01)08/16/2024Tinea corporis (ICD-10 - B35.4) /27/2025Essential (primary) hypertension (ICD-10 - I10)up - adjusting meds1Encounter for immunization (ICD-10 - Z23)10/20/2024 Diabetes (ICD-10 - E11.9)abanlxz1503/03/2024Neuropathy, diabetic (ICD-10 - E11.40) 03/03/2024Type 2 diabetes [...] RANDOM URINE PROTEIN 08/16/2024 UA (URINALYSIS), COMPLETE (40683) - IN O FFICE 08/30/2022 GLUCOSE - [...] NUC MED Hida with Ejection Fraction * Urine Culture - [facility] 12/29/2024 HIDA w/EF 09/09/2024 Next Appt Details Provider Name:Enio Langley, 10:30:00 AM, [address] [place], [address], Insurance Providers Payer Name Payer Address Payer Phone Subscriber Number Group Number Insured Name Patient Relationship to Insured Coverage Start Date Coverage End Date [employer] MEDICARE [address] [address] [place], [place] [id number] [phone] [id number] Zachary Maynard Self - patient is the insured UNITED HE[employer] CARE MEDICAREPO [address] [address] [place], [place] [phone] [id number], GrettaSelf - patient is the insured Medications Administered Medication Instructions Date of Administration Dosage Notes Dexamethasone, 4mg/mL mg8 mgDexamethasone, 4mg/mL48 mg8 mgDexamethasone, 4mg/mL mgDexamethasone, 4mg/mL mgKenalog-4004/0 mg80 mg Kenalog-400/20 js013Rsgerqo-8666/0 on72Hgpvcphdt Tromethamine ml39Vcgxjyjfdyder 40 mg/ml0 mg Medical (General) History Medical [...] Surgery Breast Cyst removedHysterectomyHospitalization History Reason Date(Month/Year) [facility] 2024 Aorta Patch 01/2024 A-fib 12/17 sepsis 2020
--- OUTSIDE RECORDS SUMMARY | 2025-01-02 12:47 | XMS_ITS | Clinical Summary ---
Author Organization [facility] Address [address] [place] [address] Care Team Providers Care [employer] Counter Person Name Role Phone Velasquez Langley MD Primary Care Provider [phone] Allergies Active AllergyReactionsCriticalityNoted DateCommentsAtorvastatinUnknown 01/15/20234278SwslcsvsXtapnws32/22/7248AyujzwqeqaurqDhanzti11/04/2018 Other Reaction(s): Vomiting CrenjxonmcMamrnncdfeuRysa06/04/2018 Other Reaction(s): Anaphylaxis, Unknown Meperidine WmiIwcaxii22/22/2023MoxifloxacinAnaphylaxis,RsvluwiVfvu32/04/2018 Other Reaction(s): Other Had to bring me back. Had to pump my heart DaafjwlgyrTwwkubg22/04/2018 Other Reaction(s): Itching Promethazine Hcl3434KdsqsdhdhwqbDbycgrp49/04/2018 Other Reaction(s): Unknown Reaction TlmkhnaYngwhxz23/04/2018Sulfa JjjmvtkktbcKlazbbc83/04/2018 Other Reaction(s): Itching Wound Dressing ZauodygdYvqzjei72/30/2023 Medications MedicationSigDispense QuantityRefillsLast FilledStart DateEnd DateStatus memantine [...] InformationValueDate RecordedSex Assigned at BirthNot on fileLegal HtgRxuiul44/15/2023 7:09 PM EDTGender IdentityNot on fileSexual OrientationNot on file Last Filed Vital Signs Vital SignReadingTime TakenCommentsBlood Pressure--Pulse--Temperature-- Respiratory Rate--Oxygen Saturation--Inhaled Oxygen Concentration--Afuipb79.1 kg (159 lb)01/06/2023 10:45 AM PDYHrhqcj659 cm (5' 3 )01/06/2023 10:45 AM ESTBody Mass Index28.17103/08/2022 10:45 AM EST Plan of Treatment Health MaintenanceDue DateLast DoneCommentsPneumococcal Vaccine: 65+ Years (2 of 2 - PCV)/COVID-19 Vaccine (5 - 2024- season)2024 12/20/2020, 05/19/2020, 04/21/2020, Additional history existsInfluenza Vaccine (#1)/06/2019 Insurance Care Teams Team MemberRelationshipSpecialtyStart DateEnd Velasquez Langley MD PCP - GeneralFamily Aajviysk16/13/23
--- NOTE | 2025-01-03 12:51 | CM.NOTE ---
Called [facility], order added on to [facility] for BMP q week x4 weeks. HH will be seeing pt today, they will add this service to HH order.
--- NOTE | 2025-01-03 12:52 | CM.DCFOLLOWU ---
Person spoke with: Shayy How are you feeling? Better How is your pain? No pain Did you understand your discharge instructions? Yes Do you have any questions about your discharge instructions? No questions Were you given any prescriptions at discharge? Yes Were you able to get your prescriptions filled? Yes Do you understand how to take your medications as ordered? Yes, [facility] is coming today for visit - updated pt that Dr. Barron added on blood work for to do once a week x4 weeks. Do you have any questions about your follow up appointment and do you plan to keep your follow up appointment? Pt does have f/u appts written down and plans on going to appointment Is there anything else that you would like to discuss? No Questions/Comments/Concerns/Other:
== END 2025-01-01 13:45 | disposition home health service (06) | DRG 309 ==
LOC: ER 17:12 → MS 12-31 01:55
PROVIDERS: Admitting Provider Internal Medicine; Emergency Provider Emergency Medicine; PCP Family Medicine; Visit Provider Internal Medicine
DX: R00.1 Bradycardia, unspecified (principal); I13.0 Hypertensive heart and chronic kidney disease with heart failure and stage 1 through stage 4 chronic kidney disease, or unspecified chronic kidney disease; I50.32 Chronic diastolic (congestive) heart failure; I47.19 Other supraventricular tachycardia; R55 Syncope and collapse; I16.0 Hypertensive urgency; Z87.891 Personal history of nicotine dependence; R79.89 Other specified abnormal findings of blood chemistry; J43.9 Emphysema, unspecified; Z79.01 Long term (current) use of anticoagulants; Z79.02 Long term (current) use of antithrombotics/antiplatelets; D64.9 Anemia, unspecified; L30.9 Dermatitis, unspecified; Z79.60 Long term (current) use of unspecified immunomodulators and immunosuppressants; R09.02 Hypoxemia; R06.02 Shortness of breath; N18.30 Chronic kidney disease, stage 3 unspecified; I25.10 Atherosclerotic heart disease of native coronary artery without angina pectoris; E78.5 Hyperlipidemia, unspecified; Z90.710 Acquired absence of both cervix and uterus; E11.22 Type 2 diabetes mellitus with diabetic chronic kidney disease; I71.40 Abdominal aortic aneurysm, without rupture, unspecified; E11.51 Type 2 diabetes mellitus with diabetic peripheral angiopathy without gangrene; Z85.42 Personal history of malignant neoplasm of other parts of uterus; Z79.899 Other long term (current) drug therapy
CPT/HCPCS: 36415; 70450; 71045; 71275; 80048; 80053; 81001; 82805; 82948; 83735; 83880; 84443; 84484; 85025; 85027; 85378; 87086; 93005; 93270; 93970; 94761; 96374; 96375; 96376; 99285; G0378; J0360; J1938; Q9967

== ENCOUNTER 2025-02-10 10:53 | Outpatient (OUT) | payer MEDICARE, SELFPAY ==
--- OUTSIDE RECORDS SUMMARY | 2025-02-07 13:20 | XMS_ITS | Encounter Summary ---
Author Organization [facility] Address [address] [place] [address] Care Team Providers Care Research Clerk Name Role Phone Velasquez Langley MD Primary Care Provider [phone] Reason for Referral * Imaging (Routine) - Pending ReviewSpecialtyDiagnoses / ProceduresReferred By ContactReferred To ContactCardiology Diagnoses Absence of pulse in single extremity Procedures Vascular US upper extremity arterial duplex bilateral Bhavesh Fulton MD [address] [facility] [address] [place] [address] Phone: tel: fax: Referral IDStatusReasonStart DateExpiration DateVisits RequestedVisits [id number] Review Perform Procedure Reason for Visit * ReasonCommentsShortness of BreathC/o SOB.SyncopeWore 30 day event monitor s/p hospital admission for syncope and hypertensive urgency. Denies recurrence. HypertensionBP still up and down .PalpitationsWas up the other night for a few hours with palpitations she says.Atrial FibrillationDenies bleeding on Eliquis.Congestive Heart FailureTaking furosemide every other day. Encounter Details DateTypeDepartmentCare Team (Latest Contact Info)Mzxmgivcyso55/15/2025 1:20 PM ESTOffice Visit [facility] [address] [place] [address] Bhavesh Fulton MD [address] [facility] [address] [place] [address] Near syncope (Primary Dx); Vertigo; Chronic diastolic heart failure (CMS/HCC); Coronary artery disease involving [place] coronary artery of [place] heart without angina pectoris; Paroxysmal atrial fibrillation (CMS/HCC); NSVT (nonsustained ventricular tachycardia) (CMS/HCC); Absence of pulse in single extremity; Abdominal aortic aneurysm (AAA) without rupture, unspecified part; Mesenteric artery stenosis; Essential hypertension; Pure hypercholesterolemia; Stage 3a chronic kidney disease (CMS/HCC) Social History Tobacco UseTypesPacks/DayYears UsedDateSmoking Tobacco: FormerCigarettes Smokeless Tobacco: NeverAlcohol UseStandard Drinks/WeekCommentsNever0 (1 standard drink = 0.6 oz pure alcohol)[facility] UtilitiesAnswerDate RecordedIn the past 12 months has the [employer] gas, oil, or water [employer] threatened to shut off services in your [...] times a week01/27/2024How often do you attend rastafari or buddhist services?Never01/27/2024o you belong to any clubs or organizations such as rastafari groups, unions, fraternal or athletic groups, or school groups?No01/27/2024How often do you attend meetings of the clubs or organizations you belong to?Never01/27/2024re you , , , , never , or living with a partner?Hvghlmq5001/27/2024 AUDIT-CAnswerDate RecordedQ1: How often do you have [...] Health Questionnaire-2 Score0 05/11/2024[facility] [place] of Occupational Health - Occupational Stress QuestionnaireAnswerDate RecordedDo you feel stress - tense, restless, nervous, or anxious, or unable to sleep at night because yourmind is troubled all the time - these days?To some dsdumr6701/27/2024UT Safety & EnvironmentAnswerDate RecordedFear of Current or [...] homeless or living in a custodial (including now)?No08/26/2024Hunger Vital Sign AnswerDate RecordedWithin the past 12 months, you worried that your food would run out before you got the money to buymore.Never true08/26/2024Ran Out of Food in the Last YearNot on file08/26/2024CommentsNoSex and Gender InformationValueDate RecordedSex Assigned at OawetGbgujo00/03/2024 11:08 AM EST Legal VstGuurnc10/29/2022 11:01 PM EDTGender JgdedoyfIwkfhv59/03/2024 11:08 AM ESTSexual OrientationHeterosexual or Rcfjmufm89/03/2024 11:08 AM ESTdocumented as of this encounter Last Filed Vital Signs Vital SignReadingTime TakenCommentsBlood Eptemhxb814/5402/07/2025 1:38 PM EST Ivhbm824202/07/2025 1:38 PM ESTTemperature--Respiratory Rate--Oxygen Atqzvqqrpu04% 02/07/2025 1:38 PM ESTInhaled Oxygen Concentration--Yntsse64.5 kg (162 lb) 02/07/2025 1:38 PM KKZBtfbfm539 cm (5' 3 )02/07/2025 1:38 PM ESTBody Mass Index 28.7104/10/2024 1:38 PM ESTdocumented in this encounter Progress Notes * Bhavesh Fulton MD - 02/07/2025 1:20 PM EST Images from the original note were not included. [place] Card[facility] Conchis Johnson is a 79 y.o. 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 30-day event monitor 12/31/2024 - 01/29/2025 Sinus rhythm with heart rate 44 to 90 bpm, average heart rate 55 bpm 4 events of nonsustained V. tach 3-6 beats, asymptomatic PACs less than 1% PVCs less than 1% No symptoms reported by the patient Invasive vascular procedure 02/05/2024 Procedures MESENTERIC ANGIOGRAM 98804 - [place] OFFICE/OUTPT VISIT,PROCEDURE ONLY BALLOON EXBANDABLE STENTING OF CELIAC AND SMA ARTERIES [id number] - [place] OFFICE/OUTPT VISIT,PROCEDURE ONLY Gilberto Whitten Invasive vascular procedure 01/28/2024 Procedures PERC ACCESS AND CLOSURE OF BILAT FEMORAL ARTERY, ENDOVASCULAR AAA REPAIR Aorta angiogram REPAIR, AAA, ENDOVASCULAR, USING BJVGT-UN-ECZOE ENDOGRAFT Placement of enhanced fixation device, aptus [...] post endograft repair 01/28/2024 Dr. Yates at [facility]. 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 She underwent again angiogram with [...] Plan of Treatment DateTypeDepartmentCare Team (Latest Contact Info)Gmwgmtkyehy71/05/2026 1:20 PM ESTOffice Visit [facility] [address] [place] [address] Bhavesh Fulton MD [address] [place] [address] NameTypePriorityAssociated DiagnosesOrder ScheduleVascular US upper extremity arterial duplex bilateralVascular UltrasoundRoutine Absence of pulse in single extremity Expected: 02/07/2025 (Approximate), Expires: 02/07/2027NamePriorityAssociated DiagnosesDate/TimeLOOP INSERTION NSVT (nonsustained ventricular tachycardia) (CMS/HCC) documented as of this encounter Visit Diagnoses Diagnosis Near syncope- Primary Vertigo Dizziness and giddiness Chronic diastolic heart failure (CMS/HCC) Chronic diastolic heart failure Coronary artery disease involving [place] coronary artery of sag[place] heart without angina pectoris Paroxysmal atrial fibrillation (CMS/HCC) Atrial fibrillation NSVT (nonsustained ventricular tachycardia) (CMS/HCC) Absence of pulse in single extremity Abdominal aortic aneurysm (AAA) without rupture, unspecified part Mesenteric artery stenosis Stricture of artery Essential hypertension Unspecified essential hypertension Pure hypercholesterolemia Stage 3a chronic kidney disease (CMS/HCC) documented in this encounter Care Teams Team MemberRelationshipSpecialtyStart DateEnd Date Velasquez Langley MD [address] [facility] [address] [address] PCP - Zijbjvg30/8/24documented as of this encounter
--- OUTSIDE RECORDS SUMMARY | 2025-02-08 13:45 | XMS_ITS | Encounter Summary ---
Author Organization [facility] Address [address] [place] [address] Care Team Providers Care Premix Concrete Batcher Name Role Phone Velasquez Langley MD Primary Care Provider [phone] Reason for Visit * ReasonCommentsFollow-upPatient is here today for a follow up, per Dr. Fulton unable to feel pulse in left armAtrial FibrillationHyperlipidemiaHypertension Coronary Artery DiseaseCongestive Heart FailureShortness of Breath Encounter Details DateTypeDepartmentCare Team (Latest Contact Info)Vallkmsgmoh66/16/2025 1:45 PM ESTOffice Visit [facility] [address] [place] [address] Dusty Weaver MD [address] [place] [address] Paroxysmal atrial fibrillation (CMS/HCC) (Primary Dx); NSVT (nonsustained ventricular tachycardia) (CMS/HCC) Social History Tobacco UseTypesPacks/DayYears UsedDateSmoking Tobacco: FormerCigarettes Smokeless Tobacco: NeverAlcohol UseStandard Drinks/WeekCommentsNever0 (1 standard drink = 0.6 oz pure alcohol)[facility] UtilitiesAnswerDate RecordedIn the past 12 months [...] times a week01/27/2024How often do you attend mormonism or baptism services?Never01/27/2024o you belong to any clubs or organizations such as mormonism groups, unions, fraternal or athletic groups, or school groups?No01/27/2024How often do you attend meetings of the clubs or organizations you belong to?Never01/27/2024re you , , , , never , or living with a partner?Dcipwmb0101/27/2024 AUDIT-CAnswerDate RecordedQ1: How often do you have [...] at all 08/26/2024PHQ-2AnswerDate RecordedPatient Health Questionnaire-2 Score0 05/11/2024[facility] [place] of Occupational Health - Occupational Stress QuestionnaireAnswerDate RecordedDo you feel stress - tense, restless, nervous, or anxious, or unable to sleep at night because yourmind is troubled all the time - these days?To some elphwn4701/27/2024UT Safety & EnvironmentAnswerDate RecordedFear of Current or [...] homeless or living in a fci (including now)?No08/26/2024Hunger Vital Sign AnswerDate RecordedWithin the past 12 months, you worried that your food would run out before you got the money to buymore.Never true08/26/2024Ran Out of Food in the Last YearNot on file08/26/2024CommentsNoSex and Gender InformationValueDate RecordedSex Assigned at DbuivPyildj60/03/2024 11:08 AM EST Legal UwkTskqgx13/29/2022 11:01 PM EDTGender AuhzuvusMvryga69/03/2024 11:08 AM ESTSexual OrientationHeterosexual or Erwidbjk39/03/2024 11:08 AM ESTdocumented as of this encounter Last Filed Vital Signs Vital SignReadingTime TakenCommentsBlood Hjoiatho896/6202/08/2025 1:50 PM EST Odtht018202/08/2025 1:50 PM ESTTemperature--Respiratory Rate--Oxygen Saqmjdaxqc97% 02/08/2025 1:50 PM ESTInhaled Oxygen Concentration--Vbuhea39.5 kg (162 lb) 02/08/2025 1:42 PM CODJzsexp494 cm (5' 3 )02/08/2025 1:42 PM ESTBody Mass Index 28.7104/11/2024 1:42 PM ESTdocumented in this encounter Progress Notes * Dusty Weaver MD - 02/08/2025 1:45 PM EST Images from the original note were not included. [place] Electrophysiology Consult Note [place] [facility] - [facility] Reason for visit: Afib 02/08/2025 Patient had recently seen Dr. YEH and event monitor was placed for evaluation for syncope which didnot yield any episode of AV block except for very short runs of nonsustained VT of 3-4 beats. Patient is known to have history of chronic vertigo. Review of Systems Cardiovascular: Positive for dyspnea on exertion, irregular heartbeat and palpitations. Respiratory: Positive for shortness of breath. Musculoskeletal: Positive for neck pain. Neurological: Positive for dizziness and light-headedness. 03/09/24 Patient here for follow up PAF s/p EVAR last month at [facility]. She was seen in [facility] ED 2 weeks ago for abdominal pain. did not have atorvastatin on her med list and doesn't think she was ever taking it. Patient denies chest pain, palpitations, lightheadedness/syncope, and bleeding on Eliquis. Only gets SOB with exertion, sometimes. They said Dr. Langley stopped her amlodipine on 03/04/2024 and stopped amiodarone yesterday. says he stopped it because of hypotension and fatigue. She had seen Dr STAFFORD on 02/16/24 after her admission to [facility] where she had Ceiliac and SMA stenosis and underwent stenting on 02/05/24 and is also known to have s/p EVAR on 01/28/24. She is on Amio for her Afib. 12/02/23 Prior HPI: Shayy Johnson is a 79 y.o. year old with past medical history of Past medical history of COPD, uterine cancer, diabetes, hypertension was recently admitted to [facility] and noted to be in A-fib with RVR which was noted when she went to present for an echocardiogram. She was placed on Cardizem and subsequently converted to sinus rhythm spontaneously. She has had a productivecough at that time and other than that denied any fever. She has been known to have COPD and occasionally required oxygen while in the hospital but did not use any oxygen at home. Holter monitor donedid not reveal any further episodes of A-fib but nonsustained ventricular tachycardia a few beats. Pt is here for a follow up from event monitor , and hospital. Pt complains of sob, and pain betweenher breast. She has been experiencing palpitations on and off x 6mnths. Last episodes was 2 days ago. PMH: Past Medical History: Diagnosis Date Abdominal aortic [...] mesenteric artery stenosis UTI (urinary tract infection) PSH: Past Surgical History: Procedure Laterality Date ARTERIAL ANEURYSM REPAIR 01/28/2024 CARDIAC CATHETERIZATION Right 12/05/2023 HYSTERECTOMY IR ANGIOGRAM SMA 02/05/2024 MESENTRIC ANGIOGRAM SH: Social Drivers of Health Tobacco Use: Medium Risk (02/08/2025) Patient History Smoking Tobacco Use: Former Smokeless Tobacco Use: Never Passive Exposure: Not on file Alcohol Use: Not At Risk (01/27/2024) AUDIT-C Frequency of Alcohol Consumption: Never Average Number of Drinks: Patient does not drink Frequency of Binge Drinking: Never Financial Resource Strain: Low Risk (08/26/2024) Overall Financial Resource Strain (CARDIA) Difficulty of Paying Living Expenses: Not hard at all Food Insecurity: No Food Insecurity (08/26/2024) Hunger Vital Sign Worried About Running Out of Food in the Last Year: Never true Ran Out of Food in the Last Year: Not on file Transportation Needs: No Transportation Needs (08/26/2024) Transportation Lack of Transportation (Medical): No Lack of Transportation (Non-Medical): Not on file Physical Activity: Not on file Stress: Stress Concern Present (01/27/2024) [place] of Occupational Health - Occupational Stress Questionnaire Feeling of Stress : To some extent Social Connections: Moderately Isolated (01/27/2024) Social Connection and Isolation Panel Frequency of Communication with Friends and Family: More than three times a week Frequency of Social Gatherings with Friends and Family: More than three times a week Attends [employer] Services: Never Active Member of Clubs or Organizations: No Attends Club or Organization Meetings: Never Marital Status: Intimate Partner Violence: Not At Risk (08/26/2024) Humiliation, Afraid, Rape, and Kick questionnaire Fear of Current or Ex-Partner: No Emotionally Abused: No Physically Abused: No Sexually Abused: No Depression: Not at risk (05/11/2024) PHQ-2 PHQ-2 Score: 0 Housing Stability: Low Risk (08/26/2024) Housing Stability Vital Sign Unable to Pay for Housing in the Last Year: No Number of Times Moved in the Last Year: Not on file Homeless in the Last Year: No Utilities: Not At Risk (08/26/2024) [facility] Utilities Threatened with loss of utilities: No Health Literacy: Not on file Allergies: Allergies Allergen Reactions Demerol [Meperidine] Anaphylaxis Aspirin Unknown Avelox [Moxifloxacin] Other Had to bring me back. Had to pump my heart Cefdinir Unknown Nalbuphine Itching and Unknown Other Reaction(s): Itching Promethazine Unknown Other Reaction(s): Unknown Reaction Edjcdzp-Xgc-Bcn Reductase Inhibitors Unknown Sulfa (Sulfonamide Antibiotics) Itching and Unknown Other Reaction(s): Itching Sulfur Unknown Weight: 73.5kg Visit Vitals BP 119/62 (BP Location: Right arm, Patient Position: Sitting) Pulse (!) 48 Ht 1.6 m (5' 3 ) Wt 73.5 kg (162 lb) SpO2 96% BMI 28.70 kg/m?? OB Status Postmenopausal Smoking Status Former BSA 1.81 m?? Meds: Current Outpatient Medications on File Prior to Visit Medication Sig Dispense Refill Adbry 300 mg/2 mL auto-injector Inject 300 mg under the skin every 14 (fourteen) days. albuterol 90 mcg/actuation inhaler 2 puffs if needed. amiodarone (Pacerone) 200 mg tablet Take 1 tablet (200 mg) by mouth in the morning. 90 tablet 3 apixaban (Eliquis) 2.5 mg tablet Take 2 tablets (5 mg) by mouth two times daily for 240 doses. 120 tablet 3 pkdsguiyyo-rxvaxhud-qhambkvems (Breztri Aerosphere) 160-9-4.8 mcg/actuation HFA aerosol inhaler every 12 (twelve) hours. carvedilol (Coreg) 6.25 mg tablet Take 1 tablet (6.25 mg) by mouth two times daily. 180 tablet 3 clopidogrel (Plavix) 75 mg tablet Take 1 tablet (75 mg) by mouth in the morning. 90 tablet 3 evolocumab (Repatha SureClick) 140 mg/mL pen injector Inject 1 mL under the skin every 14 (fourteen) days. 6 mL 3 ezetimibe (Zetia) 10 mg tablet Take 10 mg by mouth in the morning. ferrous sulfate 325 (65 Fe) MG tablet Take 325 mg by mouth 2 times daily. furosemide (Lasix) 20 mg tablet Take 1 tablet (20 mg) by mouth in the morning. (Patient taking differently: Take 20 mg by mouth every other day.) 30 tablet 11 liothyronine (Cytomel) 5 mcg tablet Take by mouth in the morning. (Patient taking differently: Take10 mcg by mouth in the morning.) meclizine (Antivert) 25 mg tablet Take 50 mg by mouth if needed for dizziness. memantine (Namenda XR) 28 mg capsule,sprinkle,ER 24hr Take 28 mg by mouth in the morning. nitroglycerin (Nitrostat) 0.[address] 0.4 mg under the tongue every 5 (five) minutes if needed for chest pain. pantoprazole (ProtoNix) 40 mg EC tablet Take 40 mg by mouth in the morning. rOPINIRole (Requip) 0.5 mg tablet Take 0.5 mg by mouth at bedtime. tiotropium (Spiriva with HandiHaler) 18 mcg inhalation capsule if needed. [DISCONTINUED] carvedilol (Coreg) 12.5 mg tablet Take 12.5 mg by mouth with breakfast and with evening meal. [DISCONTINUED] isosorbide mononitrate ER (Imdur) 30 mg 24 hr tablet Take 30 mg by mouth in the morning. Do not crush or chew. (Patient not taking: Reported on 12/22/2024) No current facility-administered medications on file prior to visit. ROS: Review of Systems Cardiovascular: Positive for dyspnea on exertion (intermittent). Musculoskeletal: Positive for arthritis and back pain. All other systems reviewed and are negative. [...] and dry Nails: no clubbing Labs: @LABRESULTS@ Lab Results Component Value Date HDL 45 07/22/2024 HDL 45 02/02/2024 LDL CALC 138 07/22/2024 LDL CALC 83 02/02/2024 TRIGLYCERIDES 170 (H) 07/22/2024 TRIGLYCERIDES 100 02/02/2024 TSH 5.42 02/02/2024 BNP 1,210 (H) 02/07/2024 BNP 1,109 (H) 02/02/2024 EKG: Encounter Date: 08/26/24 ECG 12 lead Result Value Ventricular Rate 61 Atrial Rate 61 SC Interval 154 QRS DURATION 84 QT Interval 440 QTC CALCULATION(BAZETT) 442 P Campbell -11 R-Campbell -12 T Wave Campbell 36 Impression Sinus rhythm with Premature ventricular complexes or Fusion complexes Nonspecific ST abnormality Abnormal ECG When compared with ECG of 03-FEB-2024 05:58, Fusion complexes are now Present Vent. rate has decreased BY 38 BPM QT has shortened Confirmed by Dusty Weaver ([id number]) on 08/27/2024 7:40:52 PM Echo: 11/26/23 Stress test: Coronary angiogram: 12/05/23 Hemodynamic Data: RA: 7 RV: 30/3, 7 [...] output and cardiac index. Controlled systemic hypertension. Diagnostic Imaging: Assessment and Plan: - Paroxysmal atrial fibrillation: was on Amio and had stopped 2 days ago on account of low BP and ct DOAC. - NSVT: Cath revealed stable non obstructive CAD. I reassured the patient that the episodes are very short-lived and if there is evidence of nonsustained VT that correlates with the loop monitor showing evidence of this then we can consider an ICD. This would warrant that she will need a loop monitor for symptom EKG correlation - PAD s/p EVAR and Celiac&SMA stents. Followed by Vascular. -COPD: CT inhalers -Hypertension: Bp being monitored and in low 70s and feels tired and washed out. Amlodipine was stopped 2 days ago and now on Coreg 6.25mg bid. Keep BP log and if low, can lower dose. - Dm2: Ct meds. Dusty Weaver MD Cardiac Electrophysiology [facility] documented in this encounter Plan of Treatment DateTypeDepartmentCare Team (Latest Contact Info)Jqrxdrjdizi24/05/2026 1:20 PM ESTOffice Visit [facility] [address] [place] [address] Bhavesh Fulton MD [address] [place] [address] NamePriorityAssociated DiagnosesDate/TimeLOOP INSERTION NSVT (nonsustained ventricular tachycardia) (CMS/HCC) documented as of this encounter Visit Diagnoses Diagnosis Paroxysmal atrial fibrillation (CMS/HCC)- Primary Atrial fibrillation NSVT (nonsustained ventricular tachycardia) (CMS/HCC) documented in this encounter Care Teams Team MemberRelationshipSpecialtyStart [place] [address] [place], [place] [address] [place] [address] PCP - Vbuvmrz93/8/24documented as of this encounter
--- OUTSIDE RECORDS SUMMARY | 2025-02-10 10:56 | XMS_ITS | Clinical Summary ---
Author Organization [facility] Address [address], [address] [place] [address] Care Team Providers Care Straightedge Machine Operator Helper Name Role Phone Velasquez Langley MD Primary Care Provider [phone] Allergies Active AllergyReactionsCriticalityNoted DateCommentsMoxifloxacinAnaphylaxisHigh 06/27/20170253Somhwibbeaovu01/04/7333PyczcgbzovLorsbxznzopYlob52/04/2018Nalbuphine 06/27/20172298Eakcjlbgdofw39/04/9170Zjiopbx12/04/2018Sulfa Paysbqgqmse68/04/2018 Adhesive Tape06/27/2017 Medications MedicationSigDispense QuantityRefillsLast FilledStart DateEnd [...] tablet 5010/15/2019Active Active Problems ProblemNoted DateDiagnosed DateModerate fzqwuiqkjqvj55/21/2020Right renal artery /19/2020Secondary vposptbkihom88/19/4491Yfnumjnzpob07/19/2020 Overview (10/13/2019): Replacement after MRI Aneurysm of infrarenal abdominal aorta10/09/20193353Fphzngxlour40/05/2018 Hypertensive doxlgxe2806/28/20176694Ucutpffhaovh37/05/2018Acute intractable headache Social History Tobacco UseTypesPacks/DayYears UsedDateSmoking Tobacco: NeverSmokeless Tobacco: NeverAlcohol UseStandard Drinks/WeekCommentsNo0 (1 standard drink = 0.6 oz pure alcohol)CommentsNoSex and Gender InformationValueDate RecordedSex Assigned at BirthNot on fileLegal AfmPfxqzk76/04/2018 9:20 PM EDTGender Identity Not on fileSexual OrientationNot on file Last Filed Vital Signs Vital SignReadingTime TakenCommentsBlood Lxfyavbi219/64010/16/2019 3:45 PM EDT Echnu701410/16/2019 8:25 AM JULLaizfcghlga13.7 ??C (98 ??F)10/16/2019 8:25 AM EDT Respiratory Ceih895110/16/2019 8:25 AM EDTOxygen Paraqlnwiw68%10/16/2019 8:25 AM EDTInhaled Oxygen Concentration--Rjtnxv36.4 kg (148 lb 9.4 oz)10/16/2019 6:15 AM XWMKrxoug752.6 cm (5' 4 )10/15/2019 3:22 PM EDTBody [...] MemberRelationshipSpecialtyStart DateEnd Date Velasquez Langley MD [address] [place] [address] PCP - GeneralFamily Medicine06/27/17
--- OUTSIDE RECORDS SUMMARY | 2025-02-10 10:57 | XMS_ITS | Encounter Summary ---
Author Organization [facility] Address [address] [place] [address] Care Team Providers Care Split Leather Department Supervisor Name Role Phone Velasquez Langley MD Primary Care Provider [phone] Encounter Details DateTypeDepartmentCare Team (Latest Contact Info)Obluamjbrmk33/15/2025Orders Only [facility] at [facility] [address] [place] [address] Kristie Chow MA Shortness of breath (Primary Dx) Social History Tobacco UseTypesPacks/DayYears UsedDateSmoking Tobacco: FormerCigarettes Smokeless Tobacco: NeverAlcohol UseStandard Drinks/WeekCommentsNever0 (1 standard drink = 0.6 oz pure alcohol)[facility] UtilitiesAnswerDate RecordedIn the past 12 months has the [employer], gas, oil, or water [employer] threatened to shut off services in your [...] times a week01/27/2024How often do you attend yazidi or presybeterian services?Never01/27/2024o you belong to any clubs or organizations such as yazidi groups, unions, fraternal or athletic groups, or school groups?No01/27/2024How often do you attend meetings of the clubs or organizations you belong to?Never01/27/2024re you , , , , never , or living with a partner?Jcqkuvu4401/27/2024 AUDIT-CAnswerDate RecordedQ1: How often do you have [...] at all 08/26/2024PHQ-2AnswerDate RecordedPatient Health Questionnaire-2 Score0 05/11/2024[facility] [place] of Occupational Health - Occupational Stress QuestionnaireAnswerDate RecordedDo you feel stress - tense, restless, nervous, or anxious, or unable to sleep at night because yourmind is troubled all the time - these days?To some pfcfix0901/27/2024UT Safety & EnvironmentAnswerDate RecordedFear of Current or Ex-PartnerNot on file04/17/2023Emotionally AbusedNot on file04/17/2023hysically AbusedNot on file04/17/2023Sexually AbusedNot on 04/17/2023hysically or Sexually AbusedNot on file04/17/2023Transportation AnswerDate RecordedIn the past 12 months, has lack of transportation kept you from medical appointments or from getting medications?No08/26/2024Lack of Transportation (Non-Medical)Not on file07/03/2025Housing Stability Vital Sign AnswerDate RecordedIn the last 12 months, was there a time when you were not able to pay the mortgage or rent on time?No08/26/2024Number of Times Moved in the Last YearNot on file08/26/2024t any time in the past 12 months, were you homeless or living in a penitentiary (including now)?No08/26/2024Hunger Vital Sign AnswerDate RecordedWithin the past 12 months, you worried that your food would run out before you got the money to buymore.Never true08/26/2024Ran Out of Food in the Last YearNot on file08/26/2024CommentsNoSex and Gender InformationValueDate RecordedSex Assigned at UdlumQukjex00/03/2024 11:08 AM EST Legal QkgTkqmap83/29/2022 11:01 PM EDTGender FruefjxzQloiap03/03/2024 11:08 AM ESTSexual OrientationHeterosexual or Tjaedgwc88/03/2024 11:08 AM ESTdocumented as of this encounter Plan of Treatment DateTypeDepartmentCare Team (Latest Contact Info)Bvdtzinfxfm23/05/2026 1:20 PM ESTOffice Visit [facility] [address] [place] [address] Bhavesh Fulton MD [address] [place] [address] NameTypePriorityAssociated DiagnosesOrder SchedulePulmonary function testing Spirometry; Body Box (lung volumes, airway resistance, and SVC), DLCOPFTRoutine Shortness of breath Expected: 02/07/2025 (Approximate), Expires: 02/07/2026Pulmonary function testing 6 Minute WalkPFTRoutine Shortness of breath Expected: 02/07/2025 (Approximate), Expires: 02/07/2026NamePriorityAssociated DiagnosesDate/TimeLOOP INSERTION NSVT (nonsustained ventricular tachycardia) ([facility]) documented as of this encounter Visit Diagnoses Diagnosis Shortness of breath- Primary documented in this encounter Care Teams Team MemberRelationshipSpecialtyStart DateEnd Velasquez Langley MD [address] [facility] [address] [address] PCP - Bfbpjgz69/8/24documented as of this encounter
--- OUTSIDE RECORDS SUMMARY | 2025-02-10 10:57 | XMS_ITS | Encounter Summary ---
Author Organization [facility] Address [address] [place] [address] Care Team Providers Care Platform Software Engineer Name Role Phone Velasquez Langley MD Primary Care Provider [phone] Encounter Details DateTypeDepartmentCare Team (Latest Contact Info)Mncywzgtafb52/16/2025Orders Only [facility] at [facility] [address] [place] [address] Kristie Chow MA NSVT (nonsustained ventricular tachycardia) (CMS/HCC) (Primary Dx) Social History Tobacco UseTypesPacks/DayYears UsedDateSmoking Tobacco: FormerCigarettes Smokeless Tobacco: NeverAlcohol UseStandard Drinks/WeekCommentsNever0 (1 standard drink = 0.6 oz pure alcohol)[facility] UtilitiesAnswerDate RecordedIn the past 12 months has the [employer], gas, oil, or water [employer] threatened to shut off services in your [...] times a week01/27/2024How often do you attend protestant or caodaism services?Never01/27/2024o you belong to any clubs or organizations such as protestant groups, unions, fraternal or athletic groups, or school groups?No01/27/2024How often do you attend meetings of the clubs or organizations you belong to?Never01/27/2024re you , , , , never , or living with a partner?Iuukgos1901/27/2024 AUDIT-CAnswerDate RecordedQ1: How often do you have [...] at all 08/26/2024PHQ-2AnswerDate RecordedPatient Health Questionnaire-2 Score0 05/11/2024[facility] [place] of Occupational Health - Occupational Stress QuestionnaireAnswerDate RecordedDo you feel stress - tense, restless, nervous, or anxious, or unable to sleep at night because yourmind is troubled all the time - these days?To some lcgyuy0101/27/2024UT Safety & EnvironmentAnswerDate RecordedFear of Current or Ex-PartnerNot on file04/17/2023Emotionally AbusedNot on file04/17/2023hysically AbusedNot on 04/17/2023Sexually AbusedNot on file04/17/2023hysically or Sexually AbusedNot on [...] were you homeless or living in a alf (including now)?No08/26/2024Hunger Vital Sign AnswerDate RecordedWithin the past 12 months, you worried that your food would run out before you got the money to buymore.Never true08/26/2024Ran Out of Food in the Last YearNot on file08/26/2024CommentsNoSex and Gender InformationValueDate RecordedSex Assigned at XaamkGqsrzc71/03/2024 11:08 AM EST Legal EvwJtfjwy01/29/2022 11:01 PM EDTGender XqbbbzgwEohqct81/03/2024 11:08 AM ESTSexual OrientationHeterosexual or Kzavemmt77/03/2024 11:08 AM ESTdocumented as of this encounter Plan of Treatment DateTypeDepartmentCare Team (Latest Contact Info)Vurruqwwjhj94/05/2026 1:20 PM ESTOffice Visit [facility] at [facility] [address] [place] [address] Bhavesh Fulton MD [address] [place] [address] NamePriorityAssociated DiagnosesDate/TimeLOOP INSERTION NSVT (nonsustained ventricular tachycardia) (CMS/HCC) documented as of this encounter Visit Diagnoses Diagnosis NSVT (nonsustained ventricular tachycardia) (CMS/HCC)- Primary documented in this encounter Care Teams Team MemberRelationshipSpecialtyStart DateEnd Velasquez Langley MD [address] [facility] [address] [place] [address] PCP - Ccoesor43/8/24documented as of this encounter
--- OUTSIDE RECORDS SUMMARY | 2025-02-10 10:57 | XMS_ITS | Clinical Summary ---
Author Organization [facility] Address [id number] [place] [address] Care Team Providers Care Loading Manager Name Role Phone Velasquez Langley MD Primary Care Provider [phone] Allergies Active AllergyReactionsCriticalityNoted QxptLadddxbjFycounlunlcc11/22/2019 Hsieqjehxxwsk85/22/2408Wzkyppkahd78/22/1739Udrglpsdbo35/22/2019Promethazine 10/15/20183438Ygiisnp-Nnc-Qdh Reductase Wdouavnuyl37/22/2019Sulfa (Sulfonamide Antibiotics)10/15/2018 Medications MedicationSigDispense QuantityRefillsLast FilledStart DateEnd DateStatus ezetimibe (ZETIA) 10 mg tablet Take 10 mg by mouth daily.Active irbesartan (AVAPRO) 300 mg tablet Take 300 mg by mouth nightly.Active metoprolol tartrate (LOPRESSOR) 50 mg tablet Take 100 mg by mouth 2 (two) times a day.Active Social History Tobacco UseTypesPacks/DayYears UsedDateSmoking Tobacco: FormerSmokeless Tobacco: NeverChildcareAnswerDate PmakykxeXpifyjjjwHdlodqs51/12/2019EmploymentAnswerDate CrgapeibPcidinkumfIwylezx95/12/2019Purpose - LifeAnswerDate RecordedPurpose and direction in enbyQbaxhxh15/11/2021CommentsNoSex and Gender Information ValueDate RecordedSex Assigned at BirthNot on fileLegal OimWmrruo79/06/2015 11:42 AM EDTGender IdentityNot on fileSexual OrientationNot on file Last Filed Vital Signs Vital SignReadingTime TakenCommentsBlood Bwerubff207/7708 10:41 PM EDT Rgxfv3492 10:41 PM WZEUexdfoxwtbx23.7 ??C (98 ??F)10/15/2018 10:41 PM EDTRespiratory Iela732610/15/2018 10:41 PM EDTOxygen Jweirtcumj99%10/15/2018 8:09 PM EDTInhaled Oxygen Concentration--Rnkvgz07.8 kg (165 lb)10/15/2018 7:26 PM EDT Vfohoj108.6 cm (5' 4 )10/15/2018 7:26 PM EDTBody Mass Index28.32010/15/2018 7:26 PM EDT Plan of Treatment Health MaintenanceDue DateLast DoneCommentsDepression Hyllolupw33/30/1956Tobacco Nkrfvkstj22/30/1956DTaP,Tdap and Td Vaccines (1 - Tdap)05/23/1962Zoster (Shingles) Vaccine (1 of 2)05/23/1993Fall Risk Ffftgtxhp69/30/2009RSV ( or age 60+ yrs) (1 - 1-dose 75+ series)05/23/2018Influenza Zsukqjz7810/25/2024 Medical Devices Not on file Insurance Care Teams Team MemberRelationshipSpecialtyStart Date Velasquez Langley MD PCP - GeneralFamily Medicine10/15/18
--- OUTSIDE RECORDS SUMMARY | 2025-02-10 10:57 | XMS_ITS | Clinical Summary ---
Author Organization [facility] Address [address] [place] [address] Care Team Providers Care Dry Wall Plasterer Name Role Phone Unavailable Primary Care Provider Unavailabl e Social History Tobacco UseTypesPacks/DayYears UsedDateSmoking Tobacco: Never Assessed CommentsUnknownSex and Gender InformationValueDate RecordedSex Assigned at Not on fileLegal CwqPxrlte45/02/2012 9:24 AM ESTGender IdentityNot on fileSexual OrientationNot on file Plan of Treatment Not on file
--- OUTSIDE RECORDS SUMMARY | 2025-02-10 10:57 | XMS_ITS | Clinical Summary ---
Author Organization [facility] Address [address] [place] [address] Care Team Providers Care Sports Agent Name Role Phone Velasquez Langley MD Primary Care Provider [phone] Allergies Active AllergyReactionsCriticalityNoted HjczCkinobhnNexsxhjQraanys23/29/2025 BfkzgaupmgqzHsqnc32/11/2024 Had to bring me back. Had to pump my heart JlcsfzzuTpeadyq28/22/6972PxlnqkscqnZhnmehjuyezTjxg90/08/2024NalbuphineItching, Lxnlfzj9406/27/2017 Other Reaction(s): Itching TlodienjpvpdRedljve17/04/2018 Other Reaction(s): Unknown Reaction Tvffbbq-Ogd-Oje Reductase DxfnaotlvfUflzmbp46/04/2018Sulfa (Sulfonamide Antibiotics)Itching,Aeyxhvm1606/27/2017 Other Reaction(s): Itching BixqdyYetewjx62/29/2024 Medications MedicationSigDispense QuantityRefillsLast FilledStart DateEnd DateStatus albuterol 90 mcg/actuation inhaler 2 puffs if needed.04/08/2023ctive ezetimibe (Zetia) 10 mg tablet Take 10 mg by mouth in the morning.Active memantine (Namenda XR) 28 mg capsule,sprinkle,ER 24hr Take 28 mg by mouth in the morning.Active rOPINIRole (Requip) 0.5 mg tablet Take 0.5 mg by mouth at bedtime.Active nitroglycerin (Nitrostat) 0.[address] [...] by mouth two times daily. 180 tablet 501/6Active amiodarone (Pacerone) 200 mg tablet Indications:Paroxysmal atrial [...] daily for 240 doses. 120 tablet 5Active furosemide (Lasix) 20 mg tablet Indications:Chronic diastolic heart failure (CMS/HCC)Take 1 tablet (20 mg) by mouth in the morning. 30 tablet 111516Active Additional Information Patient taking differently:20 mg oralEvery other day, Reported on 02/08/2025 clopidogrel (Plavix) 75 mg tablet Indications:Mesenteric artery stenosisTake 1 tablet (75 mg) by mouth in the morning. 90 tablet 516Active pantoprazole (ProtoNix) 40 mg EC tablet Take 40 mg by mouth in the morning.Active rqcvdcoygo-ssmhldsd-nxaektfsbz (Breztri Aerosphere) 160-9-4.8 mcg/actuation HFA aerosol inhaler every 12 (twelve) hours.5Active isosorbide mononitrate ER (Imdur) 30 mg 24 hr tablet Take 30 mg by mouth in the morning. Do not crush or chew.02/07/2025Discontinued carvedilol (Coreg) 12.5 mg tablet Take 12.5 mg by mouth with breakfast and with evening meal.02/07/2025 Discontinued Active Problems ProblemNoted DateDiagnosed DateAbsence of pulse in single mkceaaqtk76/16/2025t risk for falls02/07/2025enign mammary zhowwcxzn14/15/2025enign neoplasm of cerebral fedkiwyx11/15/6606Bkfulfqxjtrchmpg50/15/2025ervical vcmwlh5602/07/2025 Hfshxnpozfxm39/15/2025ramps of lower mgedaczpw34/15/9039Yqqigffn39/15/2025 Disorder of bone02/07/2025Diverticular vtjcfsx6802/07/20257367Qjricxayjwqhky09/15/2025 Drug-induced mwopeihw64/15/2025Easy zlinkvar82/15/2025Frequency of micturition 02/07/20250194Yloanedtme55/15/8799Laqybxbtdnmbfex08/15/2025Gastroesophageal reflux lrtcnnj7502/07/20258587Qkkqcdtjtql71/15/0122Nrvzh17/15/2025Localized edema02/07/2025 Muscle ihxsrlvp43/15/2891Dbalg40/15/4672Vxetjeoaeh18/15/2025Other injury of muscle, fascia and tendon of lower back, initial plgjtihax13/15/2025Overweight 02/07/2025Pain in right knee02/07/2025Plantar vczaeveat89/15/2025Postmenopausal state02/07/2025Pruritic udsauyohs56/15/2025Right upper quadrant pain02/07/2025 Spasm02/07/2025Stage 3a chronic kidney nqzcxwd5302/07/2025Near iereiaf4802/07/2025 Tinea /15/2025Type 2 diabetes mellitus with diabetic neuropathy, mhkycqyfhxb51/15/2025Varicose veins of other specified sites02/07/2025Vertigo 02/07/20253212Pprmwq93/15/2025Gallbladder colic08/27/2024hronic diastolic heart npjxicv3102/02/2024Mesenteric artery voxwfffq52/09/2024AA (abdominal aortic aneurysm) without pyvzlmn1101/27/2024oronary artery disease involving [place] coronary artery of [place] heart without angina bdwjvfju03/06/2024Osteoarthritis 12/05/2023iabetes nnxhufvq32/11/2024History of urinary tract infection 12/05/2023ladder outlet ucmlqtnrucr93/11/2024ostinfective urethral stricture in fsmwig3312/05/2023cute intractable wuhwawkx64/11/9957Fqdmkc63/11/2024Bladder vebprfxlv59/11/2024hronic obstructive pulmonary xszwxsj1112/05/2023ysuria 12/05/2023Female qsogyhvdn79/11/2024etention of urine12/05/2023Flank pain 12/05/2023Gross ggucyvbtt47/11/2024ure xdvkspmknaadhsirjmbg30/11/2024Other specified postprocedural umpdst9412/05/2023ostoperative pain of extremity 12/05/2023ight hand pain12/05/2023Essential beabdiwpisdx54/11/2024Stress incontinence of urine12/05/2023Urge incontinence of urine12/05/2023OPD without xqfdggvsnruf92/11/2024trial ezvobderagvy42/11/2024NSVT (nonsustained ventricular tachycardia)12/02/2023yspnea on lhxyokip92/08/2024Moderate aywmjsfhhdbn41/21/5081Lrqjmtzfmnh83/19/2020 Overview (12/05/2023): Replacement after MRI Aneurysm of infrarenal abdominal aorta10/09/2019 Resolved Problems ProblemNoted DateDiagnosed DateResolved DateAcute heart udacpdn6102/07/2025 02/08/2025V-tachV-tach/enign hypertensive heart disease without congestive heart devmpem78 Unstable auxkxp90cute respiratory failure with hypoxia Right renal artery wodxwccz62Secondary scjsifsjxjhc66HyperlipemiaHypertensive wiqnetz20Palpitation Encounters DateTypeDepartmentCare DqhnUcozpeirosn15/16/2025 1:45 PM ESTOffice [facility] [address] [facility] [place] [address] Dusty Weaver MD Paroxysmal atrial fibrillation (CMS/HCC) (Primary Dx); NSVT (nonsustained ventricular tachycardia) (CMS/HCC)02/08/2025Orders Only [facility] [address] [facility] [place] [address] Kristie Chow MA NSVT (nonsustained ventricular tachycardia) (CMS/HCC) (Primary Dx)02/07/2025 1:20 PM ESTOffice Visit [facility] [address] [facility] [place] [phone] Bhavesh Fulton MD Near syncope (Primary Dx); Vertigo; Chronic diastolic heart failure (CMS/HCC); Coronary artery disease involving [place] coronary artery of [place] heart without angina pectoris; Paroxysmal atrial fibrillation (CMS/HCC); NSVT (nonsustained ventricular tachycardia) (CMS/HCC); Absence of pulse in single extremity; Abdominal aortic aneurysm (AAA) without rupture, unspecified part; Mesenteric artery stenosis; Essential hypertension; Pure hypercholesterolemia; Stage 3a chronic kidney disease (CMS/HCC)02/07/2025Orders Only [facility] [address] [facility] [place] [phone] Kristie Chow MA Shortness of breath (Primary Dx)12/29/2024Orders Only [facility] [address] [facility] [place] [address] Renetta Lainez MA Paroxysmal atrial fibrillation (CMS/HCC) (Primary Dx)12/27/2024Refill [facility] [address] [facility] [place] [address] Kristie Chow MA Mesenteric artery wyhejzyx62/29/2025 2:00 PM EDTOffice Visit [facility] [address] [place] [phone] Bhavesh Fulton MD Chronic diastolic heart failure (CMS/HCC) (Primary Dx); Coronary artery disease involving [place] coronary artery of [place] heart without angina pectoris; Paroxysmal atrial fibrillation (CMS/HCC); V-tach (CMS/HCC); Abdominal aortic aneurysm (AAA) without rupture, unspecified part; Mesenteric artery stenosis; Benign hypertensive heart disease without congestive heart failure; Pure hypercholesterolemia; Type 2 diabetes mellitus without complication, without long-term current use of insulin (CMS/HCC)12/22/2024Orders Only [facility] [address] [place] [phone] Kristie Chow MA DOE (dyspnea on exertion) (Primary Dx)12/15/2024Refill [facility] [address] [place] [phone] Ron Crooks PA-C Mesenteric artery stenosisfrom Last 3 Months Family History RelationNameStatusCommentsFatherDeceasedMotherDeceased Social History Tobacco UseTypesPacks/DayYears UsedDateSmoking Tobacco: FormerCigarettes Smokeless Tobacco: Never Tobacco Cessation:Counseling Given: Yes Alcohol UseStandard Drinks/WeekCommentsNever0 (1 standard drink = 0.6 oz pure alcohol)[facility] UtilitiesAnswerDate RecordedIn the past 12 months has the [place], gas, oil, or water [employer] threatened to shut off services in your [...] times a week01/27/2024How often do you attend anabaptism or faith services?Never01/27/2024o you belong to any clubs or organizations such as anabaptism groups, unions, [employer] or athletic groups, or school groups?No 01/27/2024How often do you attend meetings of the clubs or organizations you belong to?Never01/27/2024re you , , , , never , or living with a partner?Zpwwkat6301/27/2024UDIT-CAnswerDate RecordedQ1: How often do you have a [...] hard at all08/26/2024PHQ-2AnswerDate Recorded Patient Health Questionnaire-2 Cuytf639[facility] [place] [facility] - Occupational Stress QuestionnaireAnswerDate RecordedDo you feel stress - tense, restless, nervous, or anxious, or unable to sleep at night because your mind is troubled all the time - these days?To some fqpcta1701/27/2024UT Safety & EnvironmentAnswerDate RecordedFear of Current or Ex-PartnerNot on file04/17/2023 Emotionally AbusedNot on file04/17/2023hysically AbusedNot on file04/17/2023 Sexually AbusedNot on file04/17/2023hysically or Sexually AbusedNot on file 04/17/2023TransportationAnswerDate RecordedIn the past 12 months, has lack of transportation kept you from medical appointments or from getting medications?No 08/26/2024Lack of Transportation (Non-Medical)Not on file08/26/2024Housing Stability Vital SignAnswerDate RecordedIn the last 12 months, was there a time when you were not able to pay the mortgage or rent on time?No08/26/2024Number of Times Moved in the Last YearNot on file08/26/2024t any time in the past 12 months, were you homeless or living in a half-way (including now)?No08/26/2024 Hunger Vital SignAnswerDate RecordedWithin the past 12 months, you worried that your food would run out before you got the money to buymore.Never true08/26/2024 Ran Out of Food in the Last YearNot on file08/26/2024CommentsNoSex and Gender InformationValueDate RecordedSex Assigned at PwmipJwlypm17/03/2024 11:08 AM ESTLegal CxaNnyzyl15/29/2022 11:01 PM EDTGender NhzcyndmIviqox96/03/2024 11:08 AM ESTSexual OrientationHeterosexual or Llnlivca70/03/2024 11:08 AM EST Last Filed Vital Signs Vital SignReadingTime TakenCommentsBlood Znipdnnc541/6202/08/2025 1:50 PM EST Xwilx269902/08/2025 1:50 PM GSFEqfqucryfuy51.2 ??C (98.9 ??F)08/27/2024 8:00 AM EDTRespiratory Smwu464108/27/2024 11:00 AM EDTOxygen Rlngcfcapw61%02/08/2025 1:50 PM ESTInhaled Oxygen Concentration--Fzbbra49.5 kg (162 lb)02/08/2025 1:42 PM EST Mricjd928 cm (5' 3 )02/08/2025 1:42 PM ESTBody Mass Index28.7104/11/2024 1:42 PM EST Plan of Treatment DateTypeDepartmentCare Team (Latest Contact Info)Jvyqvfsovhi22/05/2026 1:20 PM ESTOffice Visit [facility] [place] [address] [place] [address] Bhavesh Fulton MD [address] MS:[address]ika[address] [place] [address] NamePriorityAssociated DiagnosesDate/TimeLOOP INSERTION NSVT (nonsustained ventricular tachycardia) ([facility]) Health MaintenanceDue DateLast DoneCommentsMedicare Annual Wellness (AWV) 4Diabetes: Retinopathy Sjepxwveq62/30/1956Adult Tqymboy2705/23/1965Zoster Vaccines (1 of 2)05/23/1993Pneumococcal Vaccine: 50+ Years (2 of 2 - PCV) /Diabetes: Hemoglobin A1C/4COVID-19 Vaccine ( season)/, 05/19/2020, 04/21/2020, Additional history existsDepression Atzcgakku57/Fall Risk Screening /05/2024Influenza XnebcjbMsbdahmlv43/22/2025, 12/08/2023, 12/25/2022, Additional history existsHIB VaccinesAged OutNo [...] IdentifierShelf Expiration DateModel / Serial / LotHeli-Fx Scientific Informatics Leader And Endoanchor Cassette Implanted:Qty: 1 on 01/28/2024 by [facility]ep [facility]N/A: [id number]/SA- / / [id number]:7 IMPLANTED, 10 COME IN A BOXEndurant Stent Graft System Implanted:Qty: 1 on 01/28/2024 by [facility]ep [facility] at [facility] ShawGraftN/A: [id number] / [id number] / Endurant Ii Stent Graft Implanted:Qty: 1 on 01/28/2024 by Sand[facility]ep Wang [facility] at [facility] Shaw[facility]raftN/A: [id number] / [id number] / Description:LEFT COMMON ILIACEndurant Ii Stent Graft Implanted:Qty: 1 on 01/28/2024 by Sandeep Wang MD at [facility] ShawGraftN/A: [id number] / [id number] / Description:RIGHT COMMON ILIACStent,Express2,Bili,[id number] - [id number] Implanted:Qty: 1 on 02/05/2024 by [facility]A: [id number]/05/2025 [id number] / / [id number],Expr Bili,Sd,6.9a77d175 - [id number] Implanted:Qty: 1 on 02/05/2024 by Gilberto Whitten MD at [facility]entN/A: [employer]/[id number]/01/2027 [id number] / / [id number] Procedures Procedure NamePriorityDate/TimeAssociated DiagnosisCommentsHEMOGLOBIN Y9PXvs-Cq 12/05/2023 3:35 AM EDT from Last 3 Months or Most Recently Relevant to Health Maintenance Results * Hemoglobin A1c (12/05/2023 3:35 AM EDT)ComponentValueRef RangeTest Method Analysis TimePerformed AtPathologist SignatureHemoglobin A1C5.34.0 - 6.0 % 12/05/2023 10:16 AM [facility] ([facility])Estimated Average Coklvik186 mg/dL12/05/2023 10:16 AM [facility] ([facility])Specimen (Source) Anatomical Location / LateralityCollection Method / VolumeCollection Time Received TimeBloodVenous blood specimen / UnknownArterial Line / Unknown 12/05/2023 3:35 AM EDT1 4:04 AM EDT Narrative Authorizing ProviderResult TypeResult StatusDaniela HERNANDEZ BLOOD ORDERABLES Final ResultPerforming OrganizationAddressCity/State/ZIP CodePhone Number [facility] ([place]) [address], [place] [phone] from Last 3 Months or Most Recently Relevant to Health Maintenance Insurance Advance Directives * Full Code (Latest Code Status on File) Date ActivatedDate InactivatedComments08/26/2024 5:06 PM08/27/2024 2:13 PM * Full Code Date ActivatedDate BclwgftzumrTrsgpwjy05/9/2024 6:08 AM02/12/2024 1:43 PM * Full Code Date ActivatedDate TmqsxbtckxmVrvouebi74/3/2024 5:00 PM01/31/2024 2:34 PM * Full Code Date ActivatedDate CfadrdbfjfqJfvzqqnm28/11/2024 2:56 AM12/06/2023 2:19 PM Care Teams Team MemberRelationshipSpecialtyStart DateEnd Date Velasquez Langley MD [address] [facility] [place] [address] [facility] - Mihpfyd69/8/24
--- OUTSIDE RECORDS SUMMARY | 2025-02-10 10:58 | XMS_ITS | Patient Health Record ---
Author Organization [facility] [place] Address [address] [place] [address] Care Team Providers Care Handle Attacher Name Role Phone Enio Langley Primary Care Provider BrentonUsman [phone] Allergies Allergen (clinical drug ingredient) Drug/Non Drug [...] Interpretation: Performing Lab: Notes/Report: COLOR yellow CLARITYclearGLUCOSEnBILIRUBINnKETONEnSPECIFIC GRAVITY1.206ZVTXOqSL2KIATKRQjqoji UROBILINOGENnNITRITEnLEUKOCYTE ESTERASE++UA DIP NONAUTO WO MICRO (91213) - IN OFFICE Reviewed date:08/16/2024 07:19:28 PM Interpretation: Performing Lab: Notes/Report: COLORstrawCLARITYclearGLUCOSEnBILIRUBINnKETONEnSPECIFIC GRAVITY1.441PDPSMtMF6 PROTEINtraceUROBILINOGENnNITRITEnLEUKOCYTE ESTERASE++BNP Reviewed date:08/16/2024 07:19:28 PM Interpretation: Performing Lab: Notes/Report: [facility] ,NT Pro B Type Natriuretic Nxxq6637.0<=1800.0 pg/mLRESULTS CALLED TO DR. LANGLEY Performing Lab:see noteML - [facility] LBCBC AUTO DIFF Reviewed date:08/16/2024 06:39:10 PM Interpretation: Performing Lab: Notes/Report: [facility] ,White Blood Count7.34.0-11.0 10 3/uLRed Blood Count3.874.20-5.40 10 6/uL Nrkhbnrsvj71.412.0-16.0 g/xYMaqcchpims42.836.0-48.0 %Mean Corpuscular Gadmks21.5 81.0-99.0 fLMean Corpuscular Papueyatlt24.526.7-34.0 pgMean Corpuscular HGB Conc 31.829.9-35.2 g/dLRed Cell Distribution Width16.911.0-15.0 %Platelet Owoiq293 150-450 10 3/uLMean Platelet Ulalvh78.69.5-13.5 fLNeutrophils Percent Auto64.5 43.0-75.0 %Lymphocytes Percent Auto23.820.5-60.0 %Monocytes Percent Auto7.81.7- 12.0 %Eosinophils Percent Auto3.10.9-7.0 %Basophils Percent Auto0.30.2-2.0 % Immature Granulocytes Pct Auto0.50.0-0.5 %Neutrophils Absolute Auto4.71.4-6.5 10 3/uLLymphocytes Absolute Auto1.71.2-3.8 10 3/uLMonocytes Absolute Auto0.60.3-0.8 10 3/uLEosinophils Absolute Auto0.20.0-0.7 10 3/uLBasophils Absolute Auto0.00.0- 0.1 10 3/uLImmature Granulocytes Abs Auto0.040.00-0.03 10 3/uLPerforming Lab:see noteML - [facility] LBPROF 14(COMP METB) Reviewed date:08/16/2024 07:19:28 PM Interpretation: Performing Lab: Notes/Report: [facility] ,Rvctjy356738-154 mmol/LPotassium4.53.5-5.1 mmol/PTnbqgoyo95656-048 mmol/LCarbon Ykrulhk74.421.0-32.0 mmol/LAnion Gap12.1Vnxzczy29878-158 mg/dLBlood Urea Jarjcxvt27.07.0-18.0 mg/dLCreatinine1.480.55-1.02 mg/dLEstimated GFR ( Qqviknf22>=60 mL/min/1.73m 2Estimated GFR (Non- Ame34>=60 mL/min/1.73m 2 BUN Creatinine Ratio30.6Jhowfuq4.88.5-10.1 mg/dLBilirubin Total0.40.2-1.0 mg/dL Aspartate Amino Kozpveckeqm9907-60 U/LAlanine Fzfgdpymejnfhytl6635-89 U/L Alkaline Ahiaiisogsu92926-240 U/LTotal Protein6.26.4-8.2 g/dLAlbumin Level3.1 3.4-5.0 g/dLGlobulin3.1Albumin Globulin Ratio1.0Performing Lab:see noteML - [facility] LBUA DIP NONAUTO WO MICRO (13418) - IN OFFICE Reviewed date:10/20/2024 11:06:25 AM Interpretation: Performing Lab: Notes/Report: COLORYellowCLARITYClearGLUCOSENegBILIRUBINNegKETONENegSPECIFIC GRAVITY1.010BLOOD NsbQP7IUJFJMQ+UROBILINOGENNegNITRITENegLEUKOCYTE ESTERASE++CBC AUTO DIFF Reviewed date:02/16/2024 07:54:36 PM Interpretation: Performing Lab: Notes/Report: [facility] ,White Blood Count6.64.0-11.0 10 3/uLRed Blood Count2.994.20-5.40 10 6/uL Hemoglobin8.412.0-16.0 g/qLXuuotbjxun83.336.0-48.0 %Mean Corpuscular Hjpusg80.3 81.0-99.0 fLMean Corpuscular Xabctwxnfm02.126.7-34.0 pgMean Corpuscular HGB Conc 30.829.9-35.2 g/dLRed Cell Distribution Width16.611.0-15.0 %Platelet Ahcak297 150-450 10 3/uLMean Platelet Sgkvqe44.39.5-13.5 fLNeutrophils Percent Auto65.3 43.0-75.0 %Lymphocytes Percent Auto16.820.5-60.0 %Monocytes Percent Auto11.41.7- 12.0 %Eosinophils Percent Auto4.40.9-7.0 %Basophils Percent Auto0.90.2-2.0 % Immature Granulocytes Pct Auto1.20.0-0.5 %Neutrophils Absolute Auto4.31.4-6.5 10 3/uLLymphocytes Absolute Auto1.11.2-3.8 10 3/uLMonocytes Absolute Auto0.80.3-0.8 10 3/uLEosinophils Absolute Auto0.30.0-0.7 10 3/uLBasophils Absolute Auto0.10.0- 0.1 10 3/uLImmature Granulocytes Abs Auto0.080.00-0.03 10 3/uLPerforming Lab:see note - [facility] LBPROF CHEM 8 (BAS METB) Reviewed date:02/16/2024 07:54:36 PM Interpretation: Performing Lab: Notes/Report: [facility] ,Pjmwyu680229-959 mmol/LPotassium4.93.5-5.1 mmol/VSlyuvfjy67345-069 mmol/LCarbon Ycasamv09.021.0-32.0 mmol/LAnion Gap12.0Fcdoqyn11929-563 mg/dLBlood Urea Enenidce47.07.0-18.0 mg/dLCreatinine1.780.55-1.02 mg/dLEstimated GFR ( Sodithu92>=60 mL/min/1.73m 2Estimated GFR (Non- Ame27>=60 mL/min/1.73m 2 BUN Creatinine Ratio11.9Grbyuza6.28.5-10.1 mg/dLPerforming Lab:see note - [facility] LBXR wrist LT min 3V Reviewed date:04/04/2024 11:16:15 AM Interpretation: Performing Lab: Notes/Report: Source Facility: [facility]-[address] [place] [address] [address] XRay Report Signed Patient: ZACHARY MAYNARD MR#: [id number] : 1945 Acct:[id number] Age/Sex: 78 / F ADM Date: 04/01/24 Loc: RAD Attending Dr: Adina Langley M.D. Ordering Physician: Adina Langley M.D. Date of Service: 04/01/24 Procedure(s): XR wrist LT min 3V Accession Number(s): [id number] cc: Adina Langley M.D. [place] [address] Patient Name: ZACHARY MAYNARD MRN: [id number] date: 1945 Sex: F Assigned Patient Location: [facility] Current Patient Location: [facility] Accession/Order Number: [id number] Exam Date: 04/01/2024 16:08 Report Date: 04/01/2024 [...] M.D. Signed By: 04/01/242153 DD/ 51 TD/TT: Library Director:RT pulmonary function test Reviewed date:07/05/2024 08:47:56 PM Interpretation: Performing Lab: Notes/Report: Source Facility: [place] [id number] Respiratory Report Signed Patient: ZACHARY MAYNARD MR#: [id number] : 1945 Acct:[id number] Age/Sex: 79 / F ADM Date: 06/30/24 Loc: CARD Attending Dr: Bhavesh Fulton M.D. Ordering Physician: Bhavesh Fulton M.D. Date of Service: 06/30/24 Procedure(s): RT pulmonary function test Accession Number(s): [id number] cc: [facility] Test Date: 2024-06-30 Pat Name: ZACHARY MAYNARD Department: Room: - Gender: Female Tangled Yarn Spool Straightener: Alisa Bradley RRT : 1945 Requested By: Bhavesh Fulton Order Number: [id number] Reading MD: Usman Zavala Interpretive Statements Pulmonary function testing was completed according to ATS criteria. Findings were considered accurate and reproducible with exception of panting maneuvers. Both pre- and post-bronchodilator values utilized for spirometry. Spirometry (based on pre-bronchodilator values): -FEV1/FVC: Reduced @ 58% -FEV1: Normal @ 119% -FVC: Supra-normal @ 149% -ZKM15-20%: Reduced @ 67% -There is a partial [...] 07/05/24 1601 07/05/24 1601 DD/ 1247 TD/TT: Library Director:RINA parra 2V Reviewed date:08/16/2024 06:39:10 PM Interpretation: Performing Lab: Notes/Report: Source Facility: [address] [address] XRay Report Signed Patient: ZACHARY MAYNARD MR#: [id number] : 1945 Acct:[id number] Age/Sex: 79 / F ADM Date: 08/16/24 Loc: LAB Attending Dr: Adina Langley M.D. Ordering Physician: Adina Langley M.D. Date of Service: 08/16/24 Procedure(s): XR chest 2V Accession Number(s): [id number] cc: Adina Langley M.D. [place] [address] Patient Name: ZACHARY MAYNARD MRN: [id number] date: 1945 Sex: F Assigned Patient Location: LAB Current Patient Location: LAB Accession/Order Number: [id number] Exam Date: 08/16/2024 16:24 Report Date: 08/16/2024 [...] Bonds M.D. 08/16/2024 4:27 PM Dictation Location: [place] [address] Electronically authenticated by: [id number] Y Date: 08/16/2024 16:27 Dictated By: Xavier Bonds M.D. Signed By: 08/16/24 1629 DD/ 26 TD/TT: Library Director:PROTEIN RAND URINE Reviewed date:08/18/2024 09:07:26 PM Interpretation: Performing Lab: Notes/Report: [facility] ,Total Protein Urine Coowxc19.1<=11.9 mg/dLPerforming Lab:see noteML - [facility] LBHEMOGLOBIN Reviewed date:08/23/2024 09:16:19 PM Interpretation: Performing Lab: Notes/Report: [facility] ,Mxgbdjcwrd42.612.0-16.0 g/dLPerforming Lab:see noteML - [facility] LBMRSA Screening Culture Reviewed date:08/25/2024 07:11:59 PM Interpretation: Performing Lab: Notes/Report: [facility] ,MRSA Screening CultureSee Below For Report MRSA Screening Culture MRSA Screening CultureNegative MRSA Screening Culture MRSA Screening CulturePerformed at: CB - [facility] [place] MRSA Screening Culture MRSA Screening [address] [place], [place] [id number] MRSA Screening Culture MRSA Screening CultureLab Director: John Paul Don PhD, Phone: [phone] MRSA Screening Culture Performing Lab:see note LC - [facility] LB SEE REPORT - Water Resource Manager Id information not found for OBX-specific furniture reproducer legend CA echo doppler complete Reviewed date:09/08/2024 08:02:24 PM Interpretation: Performing Lab: Notes/Report: Source Facility: [place] [address] Cardiology Report Signed Patient: ZACHARY MAYNARD MR#: [id number] : 1945 Acct:[id number] Age/Sex: 79 / F ADM Date: 09/08/24 Loc: CARD Attending Dr: Adina Langley M.D. Ordering Physician: Adina Langley M.D. Date of Service: 09/08/24 Procedure(s): CA echo doppler complete Accession Number(s): [id number] cc: Adina Langley M.D. Patient Name: ZACHARY MAYNARD MR#: [id number] : 1945 Exam Date: 09/08/2024 Ordering Doctor: [...] M.D. Signed By: 09/08/241813 DD/ 12 TD/TT: Library Director:MYRIAM CROOKS W or MICROSCOPIC Reviewed date:12/17/2024 03:32:32 PM Interpretation: Performing Lab: Notes/Report: [facility] ,Color UrineLT. YELLOWYELLOWClarity UrineCLEARCLEARSpecific Liberty Urine<=1.005 1.005-1.025pH Urine6.05.0-9.0Protein UrineNEGATIVENEG/TRACE mg/dLGlucose Urine CK496YIDXXVPO mg/dLBilirubin UrineNEGATIVENEGATIVEKetones UrineNEGATIVENEGATIVE mg/dLBlood UrineSMALLNEGATIVENitrite UrineNEGATIVENEGATIVEUrobilinogen Urine0.2 0.2-1.0 EU/dLLeukocyte Esterase UrineNEGATIVENEGATIVEWBC UrineNONE SEENNONE SEEN #/HPFRBC Urine0-20-2 #/HPFBacteria UrineNONE SEENNONE SEEN #/HPFMucus UrineNONE SEENNONE SEENSquamous Epithelial Cell UrineRARENONE/RARE #/LPFCrystals Seen? None SeenNone Seen #/HPFCast Seen?NONE SEENNONE SEEN #/LPFPerforming Lab:see noteML - [facility] LBECG 12 lead Reviewed date:12/18/2024 03:23:11 PM Interpretation: Performing Lab: Notes/Report: Source Facility: [place] [address] Electrocardiograph Report Signed Patient: ZACHARY MAYNARD MR#: [id number] : 1945 Acct:[id number] Age/Sex: 79 / F ADM Date: 12/17/24 Loc: ER Attending Dr: Ordering Physician: Mago Foreman Date of Service: 12/17/24 Procedure(s): ECG 12 lead Accession Number(s): [id number] cc: [facility] Test Date: 2024-12-17 Pat Name: ZACHARY MAYNARD Department: Room: - Gender: Female Tangled Yarn Spool Straightener: : 1945 Requested By: ADINA LANGLEY Order Number: [id number] Reading MD: SCHUYLER ROBLERO M.D. Measurements Intervals Commerce Rate: 51 P: 37 NE: 152 QRS: 34 QRSD: 88 T: 42 QT: 474 QTc: 450 Interpretive Statements 1100 Sinus rhythm 9110 normal ECG Compared to ECG 02/25/2024 18:58:29 Left ventricular hypertrophy no longer present Left-axis deviation no longer present Electronically Signed On 12-17-2024 17:40:14 EDT by SCHUYLER ROBLERO M.D. Dictated By: SCHUYLER ROBLERO Signed By: 12/17/24 1740 DD/ 1103 TD/TT: Library Director:BNP Reviewed date:12/29/2024 04:52:32 PM Interpretation: Performing Lab: Notes/Report: [facility] ,NT Pro B Type Natriuretic Nmke1969.0<=1800.0 pg/mLRESULTS CALLED TO DR. ESTRADA Performing Lab:see noteML - [facility] LBD-DIMER Reviewed date:12/29/2024 04:52:32 PM Interpretation: Performing Lab: Notes/Report: [facility] ,D Dimer2.02<=0.59 mg/L FEU RESULTS CALLED [...] and generalized hospitalization. Performing Lab:see noteML - [facility] LBUA (CLEAN or CATCH) MICROSTRATEGY REPORTS DEVELOPER or MICRO IF IND. Reviewed date:12/29/2024 04:52:32 PM Interpretation: Performing Lab: Notes/Report: [facility] ,Color UrineLT. YELLOWYELLOWClarity UrineCLEARCLEARSpecific Liberty Urine1.010 1.005-1.025pH Urine6.05.0-9.0Protein UrineNEGATIVENEG/TRACE mg/dLGlucose Urine UANEGATIVENEGATIVE mg/dLBilirubin UrineNEGATIVENEGATIVEKetones UrineNEGATIVE NEGATIVE mg/dLBlood UrineNEGATIVENEGATIVENitrite UrineNEGATIVENEGATIVE Urobilinogen Urine1.00.2-1.0 EU/dLLeukocyte Esterase UrineMODERATENEGATIVEUrine Microscopic IndicatedYESPerforming Lab:see noteML - [facility] LB URINE MICROSCOPIC ONLY Reviewed date:12/29/2024 04:52:32 PM Interpretation: Performing Lab: Notes/Report: [facility] ,WBC Kawqz62-24OCTP SEEN #/HPFRBC Urine0-20-2 #/HPFBacteria UrineSMALLNONE SEEN #/HPFMucus UrineSMALLNONE SEENSquamous Epithelial Cell UrineFEWNONE/RARE #/LPF Transitional Epi Cells UrineRARENONE SEEN #/LPFCrystals Seen?None SeenNone Seen #/HPFCast Seen?SEENNONE SEEN #/LPFHyaline Casts UrineRAREUrine Culture Indicated YES-FRMCPerforming Lab:see noteML - [facility] LBECG 12 lead Reviewed date:12/30/2024 12:47:51 PM Interpretation: Performing Lab: Notes/Report: Source Facility: [facility]-[address] [place] [address] [place] [address] Electrocardiograph Report Signed Patient: ZACHARY MAYNARD MR#: [id number] : 1945 Acct:[id number] Age/Sex: 79 / F ADM Date: 12/29/24 Loc: [place] 230-[address]: Nena Barron M.D. Ordering Physician: Jaclyn Estrada Date of Service: 12/29/24 Procedure(s): ECG 12 lead Accession Number(s): [id number] cc: [facility] Test Date: 2024-12-29 Pat Name: ZACHARY MAYNARD Department: Room: - Gender: Female Tangled Yarn Spool Straightener: : 1945 Requested By: ADINA LANGLEY Order Number: [id number] Reading MD: SCHUYLER ROBLERO M.D. Measurements Intervals Commerce Rate: 53 P: 259 NE: 134 QRS: -12 QRSD: 84 T: 43 QT: 466 QTc: 450 Interpretive Statements ECTOPIC ATRIAL RHYTHM 9140 abnormal rhythm ECG Compared to ECG 12/17/2024 11:03:35 Ectopic atrial rhythm now present Electronically Signed On 12-30-2024 7:18:29 EST by SCHUYLER ROBLERO M.D. Dictated By: SCHUYLER ROBLERO Signed By: 12/30/24 0718 DD/ 1157 TD/TT: Library Director:CT angio chest Reviewed date:12/29/2024 05:27:30 PM Interpretation: Performing Lab: Notes/Report: Source Facility: [facility]-[address] [place] [address] [place] [address] CT Scan Report Signed Patient: ZACHARY MAYNARD MR#: [id number] : 1945 Acct:[id number] Age/Sex: 79 / F ADM Date: 12/29/24 Loc: ER Attending Dr: Ordering Physician: Jaclyn Estrada Date of Service: 12/29/24 Procedure(s): CT angio chest Accession Number(s): [id number] cc: Adina Langley M.D. [place] [address] Patient Name: ZACHARY MAYNARD MRN: [id number] date: 1945 Sex: F Assigned Patient Location: ER Current Patient Location: ER Accession/Order Number: [id number] Exam Date: 12/29/2024 16:00 Report Date: 12/29/2024 [...] Nuñez M.D. 12/29/2024 4:56 PM Dictation Location: [place] [address] Electronically authenticated by: [id number] Y Date: 12/29/2024 16:56 Dictated By: Louie Nuñez D.O. Signed By: 12/29/241658 DD/ 55 TD/TT: Library Director:CT stroke head/brain wo con Reviewed date:12/29/2024 04:52:32 PM Interpretation: Performing Lab: Notes/Report: Source Facility: [place] [address] [place] [address] CT Scan Report Signed Patient: ZACHARY MAYNARD MR#: [id number] : 1945 Acct:[id number] Age/Sex: 79 / F ADM Date: 12/29/24 Loc: ER Attending Dr: Ordering Physician: Jaclyn Estrada Date of Service: 12/29/24 Procedure(s): CT stroke head/brain wo con Accession Number(s): [id number] cc: Adina Langley M.D. [place] [address] Patient Name: ZACHARY MAYNARD MRN: [id number] date: 1945 Sex: F Assigned Patient Location: ER Current Patient Location: ED.MAIN Accession/Order Number: [id number] Exam Date: 12/29/2024 12:25 Report Date: 12/29/2024 [...] Dawkins M.D. 12/29/2024 12:41 PM Dictation Location: [place] [address] Electronically authenticated by: [id number] Y Date: 12/29/2024 12:41 Dictated By: Ariel Dawkins M.D. Signed By: 12/29/24 1243 DD/ 1241 TD/TT: Library Director:Troponin I High Sensitivity Reviewed date:12/29/2024 04:52:32 PM Interpretation: Performing Lab: Notes/Report: [facility] ,Troponin I High Rgcjyaunxbn70.74.0-51.3 pg/mL CUT-OFF POINTS HAVE BEEN ESTABLISHED BASED ON THE FOURTH UNIVERSAL DEFINITION OF MYOCARDIAL INFARCTION. THE UPPER REFERENCE LIMIT (URL) OF TROPONIN, DEFINED THE 99TH PERCENTILE OF cTnI DISTRIBUTION IN A REFERENCE POPULATION, HAS BEEN CONFIRMED THE DECISION THRESHOLD FOR IA DIAGNOSIS. 99TH PERCENTILE = 51.4 PG/ML NOTE: HIGH-SENSITIVITY TROPONIN ASSAY IS NOT INTENDED TO BE USED IN ISOLATION BUT SHOULD BE INTERPRETED IN CONJUNCTION WITH OTHER DIAGNOSTIC AND CLINICAL INFORMATION. Performing Lab:see noteML - [facility] LBECG 12 lead Reviewed date:12/30/2024 12:47:51 PM Interpretation: Performing Lab: Notes/Report: Source Facility: [facility]-[address] [place] [address] Electrocardiograph Report Signed Patient: ZACHARY MAYNARD MR#: [id number] : 1945 Acct:[id number] Age/Sex: 79 / F ADM Date: 12/29/24 Loc: [place] 230-[address]: Nena Barron M.D. Ordering Physician: Nena Barron M.D. Date of Service: 12/30/24 Procedure(s): ECG 12 lead Accession Number(s): [id number] cc: [facility] Test Date: 2024-12-30 Pat Name: ZACHARY MAYNARD Department: Room: [facility] Gender: Female Tangled Yarn Spool Straightener: : 1945 Requested By: 2802 Order Number: [id number] Reading MD: SCHUYLER ROBLERO M.D. Measurements Intervals Commerce Rate: 60 P: -72 NE: 131 QRS: 0 QRSD: 93 T: 39 QT: 359 QTc: 359 Interpretive Statements NORMAL SINUS RHYTHM SINUS ARRHYTHMIA NONSPECIFIC ST T-WAVE ABNORMALITY ABNORMAL ECG Compared to ECG 12/29/2024 11:57:11 ST T-wave abnormality now present Ectopic atrial rhythm no longer present Electronically Signed On 12-30-2024 7:25:53 EST by SCHUYLER ROBLERO M.D. Dictated By: SCHUYLER ROBLERO Signed By: 12/30/24725 DD/ 7 TD/TT: Library Director:PROF NATIVIDAD Youssef ([facility]) Reviewed date:01/02/2025 04:11:00 PM Interpretation: Performing Lab: Notes/Report: [facility] ,Nwictb239075-000 mmol/LPotassium3.73.5-5.1 mmol/IWosrlksd50334-361 mmol/LCarbon Btpeekx62.521.0-32.0 mmol/LAnion Gap11.2Knkatbr2685-326 mg/dLBlood Urea Gwgwnweb33.07.0-18.0 mg/dLCreatinine1.520.55-1.02 mg/dLEstimated GFR ( Pguhsgc30>=60 mL/min/1.73m 2Estimated GFR (Non- Ame33>=60 mL/min/1.73m 2 BUN Creatinine Ratio14.7Sotsqtn6.18.5-10.1 mg/dLPerforming Lab:see noteML - [facility] LBCBC no Diff (Hemogram) Reviewed date:12/31/2024 04:07:24 PM Interpretation: Performing Lab: Notes/Report: [facility] ,White Blood Count5.54.0-11.0 10 3/uLRed Blood Count3.414.20-5.40 10 6/uL Wqwxzbovni40.212.0-16.0 g/qVIfhitoiutl14.536.0-48.0 %Mean Corpuscular Ycdbfv92.3 81.0-99.0 fLMean Corpuscular Xlzgbbtqmp86.926.7-34.0 pgMean Corpuscular HGB Conc 31.429.9-35.2 g/dLRed Cell Distribution Width14.811.0-15.0 %Platelet Wvfhk782 150-450 10 3/uLMean Platelet Msyqek19.49.5-13.5 fLPerforming Lab:see note - [facility] LBPROF CHEM 8 (BAS METB) Reviewed date:12/31/2024 04:07:24 PM Interpretation: Performing Lab: Notes/Report: [facility] ,Bhdnac635388-122 mmol/LPotassium3.53.5-5.1 mmol/ZJpmqqotg27204-584 mmol/LCarbon Rirebtm95.321.0-32.0 mmol/LAnion Gap11.9Qttfhdv5807-678 mg/dLBlood Urea Zdezrzio68.07.0-18.0 mg/dLCreatinine1.210.55-1.02 mg/dLEstimated GFR ( Czqnrjv10>=60 mL/min/1.73m 2Estimated GFR (Non- Ame43>=60 mL/min/1.73m 2 BUN Creatinine Ratio15.0Agmreow9.68.5-10.1 mg/dLPerforming Lab:see noteML - [facility] LBCBC no Diff (Hemogram) Reviewed date:12/30/2024 12:47:51 PM Interpretation: Performing Lab: Notes/Report: [facility] ,White Blood Count5.84.0-11.0 10 3/uLRed Blood Count3.414.20-5.40 10 6/uL Hemoglobin9.912.0-16.0 g/jMNqplclrphy48.036.0-48.0 %Mean Corpuscular Okbooz09.8 81.0-99.0 fLMean Corpuscular Qpofzyonqj63.026.7-34.0 pgMean Corpuscular HGB Conc 30.929.9-35.2 g/dLRed Cell Distribution Width14.611.0-15.0 %Platelet Zdrkg367 150-450 10 3/uLMean Platelet Ndezol82.49.5-13.5 fLPerforming Lab:see note - [facility] LBTSH Reviewed date:12/30/2024 12:47:51 PM Interpretation: Performing Lab: Notes/Report: [facility] ,Thyroid Stimulating Hormone1.9940.358-3.740 uIU/mLPerforming Lab:see noteML - [facility] LBPROF 14(COMP METB) Reviewed date:12/30/2024 12:47:51 PM Interpretation: Performing Lab: Notes/Report: [facility] ,Lkamqa306032-162 mmol/LPotassium3.53.5-5.1 mmol/ZGdvsaqok70030-144 mmol/LCarbon Jcnheqq28.921.0-32.0 mmol/LAnion Gap10.5Dfpsqll3312-378 mg/dLBlood Urea Ginbnoqe36.07.0-18.0 mg/dLCreatinine1.080.55-1.02 mg/dLEstimated GFR ( Tcrqzsd41>=60 mL/min/1.73m 2Estimated GFR (Non- Ame49>=60 mL/min/1.73m 2 BUN Creatinine Ratio15.9Fujxpxa9.68.5-10.1 mg/dLBilirubin Total0.50.2-1.0 mg/dL Aspartate Amino Iwbivwugknh9038-27 U/LAlanine Hqdvnwagfdvrtign6772-31 U/L Alkaline Uokgfcownzy43173-535 U/LTotal Protein5.26.4-8.2 g/dLAlbumin Level2.5 3.4-5.0 g/dLGlobulin2.7Albumin Globulin Ratio0.9Performing Lab:see noteML - [facility] LBMAGNESIUM Reviewed date:12/30/2024 12:47:51 PM Interpretation: Performing Lab: Notes/Report: [facility] ,Magnesium2.01.8-2.4 mg/dLPerforming Lab:see noteML - [facility] LBXR chest 1V Reviewed date:12/29/2024 04:52:32 PM Interpretation: Performing Lab: Notes/Report: Source Facility: [facility]-[address] [place] [address] [place] [address] XRay Report Signed Patient: ZACHARY MAYNARD MR#: [id number] : 1945 Acct:[id number] Age/Sex: 79 / F ADM Date: 12/29/24 Loc: ER Attending Dr: Ordering Physician: Jaclyn Estrada Date of Service: 12/29/24 Procedure(s): XR chest 1V Accession Number(s): [id number] cc: Adina Langley M.D.; Jaclyn Estrada [place] [id number] Patient Name: ZACHARY MAYNARD MRN: [id number] date: 1945 Sex: F Assigned Patient Location: ER Current Patient Location: ED.MAIN Accession/Order Number: [id number] Exam Date: 12/29/2024 12:22 Report Date: 12/29/2024 12:37 At the request of: JACLYN ESTRADA MD Procedure: XR chest 1V PA CHEST: CLINICAL HISTORY: sob COMPARISON: CT chest 12/17/2024 Mildly enlarged cardiomediastinal silhouette. Lungs clear. No effusion or pneumothorax. Aortic knob calcification. XR/XR chest 1V IMPRESSION: NEGATIVE ACUTE PLEURAL-PARENCHYMAL DISEASE. Impression dictated by: Ariel Dawkins M.D. 12/29/2024 12:37 PM Dictation Location: [place] [address] Electronically authenticated by: [id number] Y Date: 12/29/2024 12:37 Dictated By: Ariel Dawkins M.D. Signed By: 12/29/24 1240 DD/ 1237 TD/TT: Library Director:Urine Culture - [facility] Reviewed date:01/02/2025 04:11:00 PM Interpretation: Performing Lab: Notes/Report: [facility] ,Urine Culture - FRMCSee Below For Report Urine Culture - [facility] <9,000 colonies/ml mixed Urine Culture - FRMCbacterial skin contaminants Urine Culture - [facility] <9,000 colonies/ml mixed Urine Culture - [facility]2 Days Urine Culture - [facility] <9,000 colonies/ml mixed Urine Culture - [facility] Urine Culture - [facility] <9,000 colonies/ml mixed [facility] - [facility] <9,000 colonies/ml mixed Urine Culture - [id number] [place] [address] Urine Culture - [facility] <9,000 colonies/ml mixed Performing Lab:see noteML - [facility] LBTroponin I High Sensitivity Reviewed date:12/29/2024 04:52:32 PM Interpretation: Performing Lab: Notes/Report: [facility] ,Troponin I High Lynsrnqgljb33.54.0-51.3 pg/mL CUT-OFF POINTS HAVE BEEN ESTABLISHED BASED ON THE FOURTH UNIVERSAL DEFINITION OF MYOCARDIAL INFARCTION. THE UPPER REFERENCE LIMIT (URL) OF TROPONIN, DEFINED THE 99TH PERCENTILE OF cTnI DISTRIBUTION IN A REFERENCE POPULATION, HAS BEEN CONFIRMED THE DECISION THRESHOLD FOR IA DIAGNOSIS. 99TH PERCENTILE = 51.4 PG/ML NOTE: HIGH-SENSITIVITY TROPONIN ASSAY IS NOT INTENDED TO BE USED IN ISOLATION BUT SHOULD BE INTERPRETED IN CONJUNCTION WITH OTHER DIAGNOSTIC AND CLINICAL INFORMATION. Performing Lab:see noteML - [facility] LBPROF 14(COMP METB) Reviewed date:12/29/2024 04:52:32 PM Interpretation: Performing Lab: Notes/Report: [facility] ,Lahymi903467-245 mmol/LPotassium3.63.5-5.1 mmol/SWtlspypb68678-012 mmol/LCarbon Hephhfh38.721.0-32.0 mmol/LAnion Gap10.9Spdxevj83860-135 mg/dLBlood Urea Mlzngbaw99.07.0-18.0 mg/dLCreatinine1.230.55-1.02 mg/dLEstimated GFR ( Grlpfnb45>=60 mL/min/1.73m 2Estimated GFR (Non- Ame42>=60 mL/min/1.73m 2 BUN Creatinine Ratio14.3Kefpaax5.68.5-10.1 mg/dLBilirubin Total0.40.2-1.0 mg/dL Aspartate Amino Uhkwwdazduh9324-10 U/LAlanine Svbznojufmmbckwf2206-82 U/L Alkaline Qbonipgumvi66838-675 U/LTotal Protein5.96.4-8.2 g/dLAlbumin Level2.8 3.4-5.0 g/dLGlobulin3.1Albumin Globulin Ratio0.9Performing Lab:see noteML - [facility] LBCBC AUTO DIFF Reviewed date:12/29/2024 04:52:32 PM Interpretation: Performing Lab: Notes/Report: [facility] ,White Blood Count7.44.0-11.0 10 3/uLRed Blood Count3.604.20-5.40 10 6/uL Bjqfesaqwb92.812.0-16.0 g/oSSywowmhdjb14.736.0-48.0 %Mean Corpuscular Jlohdl20.4 81.0-99.0 fLMean Corpuscular Amlihkpkeo08.026.7-34.0 pgMean Corpuscular HGB Conc 31.129.9-35.2 g/dLRed Cell Distribution Width14.311.0-15.0 %Platelet Fiabd494 150-450 10 3/uLMean Platelet Aaplhs84.29.5-13.5 fLNeutrophils Percent Auto75.0 43.0-75.0 %Lymphocytes Percent Auto15.220.5-60.0 %Monocytes Percent Auto6.51.7- 12.0 %Eosinophils Percent Auto2.30.9-7.0 %Basophils Percent Auto0.30.2-2.0 % Immature Granulocytes Pct Auto0.70.0-0.5 %Neutrophils Absolute Auto5.61.4-6.5 10 3/uLLymphocytes Absolute Auto1.11.2-3.8 10 3/uLMonocytes Absolute Auto0.50.3- 0.8 10 3/uLEosinophils Absolute Auto0.20.0-0.7 10 3/uLBasophils Absolute Auto0.0 0.0-0.1 10 3/uLImmature Granulocytes Abs Auto0.050.00-0.03 10 3/uLPerforming Lab:see noteML - [facility] LBCT abdomen pelvis w con Reviewed date:12/17/2024 03:32:32 PM Interpretation: Performing Lab: Notes/Report: Source Facility: [facility]-[address] [place] [address] [place] [address] CT Scan Report Signed Patient: ZACHARY MAYNARD MR#: [id number] : 1945 Acct:[id number] Age/Sex: 79 / F ADM Date: 12/17/24 Loc: ER Attending Dr: Ordering Physician: Mago Foreman Date of Service: 12/17/24 Procedure(s): CT abdomen pelvis w con Accession Number(s): [id number] cc: Adina Langley M.D. [address] [address] Patient Name: ZACHARY MAYNARD MRN: [facility]:[id number] date: 1945 Sex: F Assigned Patient Location: ED.MAIN Current Patient Location: ER Accession/Order Number: [id number] Exam Date: 12/17/2024 12:25 Report Date: 12/17/2024 [...] Bonds M.D. 12/17/2024 1:26 PM Dictation Location: [place] [address] Electronically authenticated by: [id number] Y Date: 12/17/2024 13:26 Dictated By: aXvier Bonds M.D. Signed By: 12/17/24 1330 DD/ 1326 TD/TT: Library Director:CT CHEST W CON Reviewed date:12/17/2024 03:32:32 PM Interpretation: Performing Lab: Notes/Report: Source Facility: [place] [address] CT Scan Report Signed Patient: ZACHARY MAYNARD MR#: [id number] : 1945 Acct:[id number] Age/Sex: 79 / F ADM Date: 12/17/24 Loc: ER Attending Dr: Ordering Physician: Mago Foreman Date of Service: 12/17/24 Procedure(s): CT chest w con Accession Number(s): [id number] cc: Adina Langley M.D. [place] [address] Patient Name: ZACHARY MAYNARD MRN: [id number] date: 1945 Sex: F Assigned Patient Location: ED.MAIN Current Patient Location: ER Accession/Order Number: [id number] Exam Date: 12/17/2024 12:25 Report Date: 12/17/2024 [...] Bonds M.D. 12/17/2024 1:26 PM Dictation Location: [place] [address] Electronically authenticated by: [id number] Y Date: 12/17/2024 13:26 Dictated By: Xavier Bonds M.D. Signed By: 12/17/24 1329 DD/ 132 TD/TT: Library Director:Troponin I High Sensitivity Reviewed date:12/17/2024 03:32:32 PM Interpretation: Performing Lab: Notes/Report: [facility] ,Troponin I High Byphzlpvxih73.14.0-51.3 pg/mL CUT-OFF POINTS HAVE BEEN ESTABLISHED BASED ON THE FOURTH UNIVERSAL DEFINITION OF MYOCARDIAL INFARCTION. THE UPPER REFERENCE LIMIT (URL) OF TROPONIN, DEFINED THE 99TH PERCENTILE OF cTnI DISTRIBUTION IN A REFERENCE POPULATION, HAS BEEN CONFIRMED THE DECISION THRESHOLD FOR IA DIAGNOSIS. 99TH PERCENTILE = 51.4 PG/ML NOTE: HIGH-SENSITIVITY TROPONIN ASSAY IS NOT INTENDED TO BE USED IN ISOLATION BUT SHOULD BE INTERPRETED IN CONJUNCTION WITH OTHER DIAGNOSTIC AND CLINICAL INFORMATION. Performing Lab:see noteML - [facility] LBProthrombin Time INR Reviewed date:12/17/2024 03:32:32 PM Interpretation: Performing Lab: Notes/Report: [facility] ,Prothrombin Time11.39.0-11.6 secINR1.07 DESIRED INR: 2.0-3.0 CONDITIONS NOT LISTED BELOW 2.5-3.5 FOR PROSTHETIC HEART VALVE REPLACEMENT 2.5-3.5 RECURRENT THROMBOSIS Performing Lab:see noteML - [facility] LBPTT Reviewed date:12/17/2024 03:32:32 PM Interpretation: Performing Lab: Notes/Report: [facility] ,Partial Thromboplastin Time28.022.3-36.2 secPerforming Lab:see noteML - [facility] LBPROF 14(COMP METB) Reviewed date:12/17/2024 03:32:32 PM Interpretation: Performing Lab: Notes/Report: [facility] ,Nhmovb282640-370 mmol/LPotassium3.93.5-5.1 mmol/IQushoosl19363-976 mmol/LCarbon Oaqucqz31.621.0-32.0 mmol/LAnion Gap15.8Rhfvicd57679-434 mg/dLBlood Urea Kqfvhflq87.07.0-18.0 mg/dLCreatinine1.290.55-1.02 mg/dLEstimated GFR ( Lthhuyt51>=60 mL/min/1.73m 2Estimated GFR (Non- Ame40>=60 mL/min/1.73m 2 BUN Creatinine Ratio20.0Vbkdwme2.48.5-10.1 mg/dLBilirubin Total0.30.2-1.0 mg/dL Aspartate Amino Eszrhkpekik1248-76 U/LAlanine Skjyvvbpvbjmilim2960-86 U/L Alkaline Nypkkpydmpm14678-665 U/LTotal Protein6.56.4-8.2 g/dLAlbumin Level3.5 3.4-5.0 g/dLGlobulin3.0Albumin Globulin Ratio1.2Performing Lab:see noteML - [facility] LBCBC AUTO DIFF Reviewed date:12/17/2024 03:32:32 PM Interpretation: Performing Lab: Notes/Report: [facility] ,White Blood Count10.64.0-11.0 10 3/uLRed Blood Count4.194.20-5.40 10 6/uL Nvdrfwrtjq13.712.0-16.0 g/bTYuqsqytsaz80.836.0-48.0 %Mean Corpuscular Ukyzgk65.0 81.0-99.0 fLMean Corpuscular Nrsciyjxpn39.326.7-34.0 pgMean Corpuscular HGB Conc 31.929.9-35.2 g/dLRed Cell Distribution Width13.811.0-15.0 %Platelet Ohtic643 150-450 10 3/uLMean Platelet Tfdcok30.29.5-13.5 fLNeutrophils Percent Auto84.2 43.0-75.0 %Lymphocytes Percent Auto9.120.5-60.0 %Monocytes Percent Auto5.11.7- 12.0 %Eosinophils Percent Auto0.00.9-7.0 %Basophils Percent Auto0.10.2-2.0 % Immature Granulocytes Pct Auto1.50.0-0.5 %Neutrophils Absolute Auto9.01.4-6.5 10 3/uLLymphocytes Absolute Auto1.01.2-3.8 10 3/uLMonocytes Absolute Auto0.50.3- 0.8 10 3/uLEosinophils Absolute Auto0.00.0-0.7 10 3/uLBasophils Absolute Auto0.0 0.0-0.1 10 3/uLImmature Granulocytes Abs Auto0.160.00-0.03 10 3/uLPerforming Lab:see note - [facility] LBBNP Reviewed date:12/17/2024 03:32:32 PM Interpretation: Performing Lab: Notes/Report: [facility] ,NT Pro B Type Natriuretic Cegy10712.0<=1800.0 pg/mLRESULTS CALLED TO DR FOREMAN IN ERPerforming Lab:see [facility] LBUS right upper quadrant Reviewed date:09/09/2024 05:20:20 PM Interpretation: Performing Lab: Notes/Report: Source Facility: [place] [address] Ultrasound Report Signed Patient: ZACHARY MAYNARD MR#: [id number] : 1945 Acct:[id number] Age/Sex: 79 / F ADM Date: 09/09/24 Loc: Attending Dr: Adina Langley M.D. Ordering Physician: Adina Langley M.D. Date of Service: 09/09/24 Procedure(s): US right upper quadrant Accession Number(s): [id number] cc: Adina Langley M.D. [place] [id number] Patient Name: ZACHARY MAYNARD MRN: [id number] date: 1945 Sex: F Assigned Patient Location: Current Patient Location: US Accession/Order Number: [id number] Exam Date: 09/09/2024 11:28 Report Date: 09/09/2024 [...] Arizmendi M.D. 09/09/2024 11:31 AM Dictation Location: [place] [address] Electronically authenticated by: [id number] Y Date: 09/09/2024 11:31 Dictated By: Sammie Arizmendi M.D. Signed By: 09/09/24 1134 DD/ 1131 TD/TT: Library Director:Prothrombin Time INR Reviewed date:08/23/2024 09:16:19 PM Interpretation: Performing Lab: Notes/Report: [facility] ,Prothrombin Time10.49.0-11.6 secINR0.98 DESIRED INR: 2.0-3.0 CONDITIONS NOT LISTED BELOW 2.5-3.5 FOR PROSTHETIC HEART VALVE REPLACEMENT 2.5-3.5 RECURRENT THROMBOSIS Performing Lab:see noteML - [facility] LBPTT Reviewed date:08/23/2024 09:16:19 PM Interpretation: Performing Lab: Notes/Report: [facility] ,Partial Thromboplastin Time27.622.3-36.2 secPerforming Lab:see noteML - [facility] LBPROF CHEM 8 (BAS METB) Reviewed date:08/23/2024 09:16:19 PM Interpretation: Performing Lab: Notes/Report: [facility] ,Pasatq713669-138 mmol/LPotassium4.23.5-5.1 mmol/HWohtoytq18556-274 mmol/LCarbon Ylflhje26.721.0-32.0 mmol/LAnion Gap11.8Xdrqktr98582-071 mg/dLBlood Urea Nnssfrqo23.07.0-18.0 mg/dLCreatinine1.250.55-1.02 mg/dLEstimated GFR ( Ubvhljp05>=60 mL/min/1.73m 2Estimated GFR (Non- Ame41>=60 mL/min/1.73m 2 BUN Creatinine Ratio32.1Tvnuwow3.38.5-10.1 mg/dLPerforming Lab:see noteML - [facility] LBUrine Culture - [facility] Reviewed date:08/19/2024 07:15:04 PM Interpretation: Performing Lab: Notes/Report: [facility] ,Urine Culture - FRMCSee Below For Report Urine Culture - [facility] <9,000 colonies/ml mixed Urine Culture - FRMCbacterial skin contaminants Urine Culture - [facility] <9,000 colonies/ml mixed Urine Culture - [facility]2 Days Urine Culture - [facility] <9,000 colonies/ml mixed Urine Culture - [facility] Urine Culture - [facility] <9,000 colonies/ml mixed [facility] - [facility] <9,000 colonies/ml mixed Urine Culture - [id number] [place] [address] Urine Culture - [facility] <9,000 colonies/ml mixed Performing Lab:see noteML - [facility] LBUA RANDOM W or MICROSCOPIC Reviewed date:08/18/2024 09:07:26 PM Interpretation: Performing Lab: Notes/Report: [facility] ,Color UrineLT. YELLOWYELLOWClarity UrineCLEARCLEARSpecific Liberty Urine1.015 1.005-1.025pH Urine5.55.0-9.0Protein UrineNEGATIVENEG/TRACE mg/dLGlucose Urine UANEGATIVENEGATIVE mg/dLBilirubin UrineNEGATIVENEGATIVEKetones UrineNEGATIVE NEGATIVE mg/dLBlood UrineNEGATIVENEGATIVENitrite UrineNEGATIVENEGATIVE Urobilinogen Urine0.20.2-1.0 EU/dLLeukocyte Esterase UrineNEGATIVENEGATIVEWBC UrineNONE SEENNONE SEEN #/HPFRBC UrineNONE SEEN0-2 #/HPFBacteria UrineTRACENONE SEEN #/HPFMucus UrineNONE SEENNONE SEENSquamous Epithelial Cell UrineRARE NONE/RARE #/LPFCrystals Seen?None SeenNone Seen #/HPFCast Seen?NONE SEENNONE SEEN #/LPFPerforming Lab:see noteML - [facility] LBTSH Reviewed date:08/16/2024 07:19:28 PM Interpretation: Performing Lab: Notes/Report: [facility] ,Thyroid Stimulating Hormone4.4180.358-3.740 uIU/mLPerforming Lab:see noteML - [facility] LBT4 Reviewed date:08/16/2024 07:19:28 PM Interpretation: Performing Lab: Notes/Report: [facility] ,T4 Xewomyrfv23.304.80-13.90 ug/dLPerforming Lab:see noteML - [facility] LBFREE T3 Reviewed date:08/16/2024 07:19:28 PM Interpretation: Performing Lab: Notes/Report: [facility] ,Free T31.702.18-3.98 pg/mLPerforming Lab:see noteML - [facility] LB SGPT Reviewed date:07/27/2024 04:20:30 PM Interpretation: Performing Lab: Notes/Report: [facility] ,Alanine Twnsfwxkwcwhlnng6819-31 U/LPerforming Lab:see noteML - [facility] LBSGOT Reviewed date:07/27/2024 04:20:30 PM Interpretation: Performing Lab: Notes/Report: [facility] ,Aspartate Amino Qiritxaevsp1382-61 U/LPerforming Lab:see noteML - [facility] LBLIPID PROFILE Reviewed date:07/27/2024 04:20:30 PM Interpretation: Performing Lab: Notes/Report: [facility] ,Naskvyvrlcgve629<=150 mg/lGOxoynqeimvp698<=200 mg/dLHDL Dpkjyrulrhv5276-86 mg/dL > or =60 mg/dl - LOW CARDIOVASCULAR RISK <40 mg/dl - HIGH CARDIOVASCULAR RISK LDL Cholesterol Xedmzgoehu35.0 <100 mg/dl OPTIMAL 100-129 mg/dl NEAR OR ABOVE OPTIMAL 130-159 mg/dl BORDERLINE HIGH 160-189 mg/dl HIGH >190 mg/dl VERY HIGH VLDL QZKCYDNOTEY81.2Chol HDL Ratio3.3 3.3 - 4.4 LOW RISK 4.4 - 7.1 AVERAGE RISK 7.1 - 11.0 MODERATE RISK >11.0 HIGH RISK Performing Lab:see noteML - [facility] LBHEMOGLOBIN Reviewed date:06/30/2024 01:21:43 PM Interpretation: Performing Lab: Notes/Report: [facility] ,Kikadiqmpx53.312.0-16.0 g/dLPerforming Lab:see noteML - [facility] LBUS venous doppler UE RT Reviewed date:04/01/2024 07:57:13 AM Interpretation: Performing Lab: Notes/Report: Source Facility: [facility]-[address] [place] [address] [place] [address] Ultrasound Report Signed Patient: ZACHARY MAYNARD MR#: [id number] : 1945 Acct:[id number] Age/Sex: 78 / F ADM Date: 03/31/24 Loc: RAD Attending Dr: Adina Langley M.D. Ordering Physician: Adina Langley M.D. Date of Service: 03/31/24 Procedure(s): US venous doppler UE LT Accession Number(s): [id number] cc: Adina Langley M.D. [place] [id number] Patient Name: ZACHARY MAYNARD MRN: [id number] date: 1945 Sex: F Assigned Patient Location: [facility] Current Patient Location: Accession/Order Number: [id number] Exam Date: 03/31/2024 16:27 Report Date: 04/01/2024 [...] M.D. Signed By: 04/01/24 0738 DD/ TD/TT: Library Director:CT abdomen pelvis wo con Reviewed date:02/29/2024 05:39:20 PM Interpretation: Performing Lab: Notes/Report: Source Facility: [place] [address] CT Scan Report Signed Patient: ZACHARY MAYNARD MR#: [id number] : 1945 Acct:[id number] Age/Sex: 78 / F ADM Date: 02/25/24 Loc: ER Attending Dr: Ordering Physician: Valentina Guzman Date of Service: 02/25/24 Procedure(s): CT abdomen pelvis wo con Accession Number(s): [id number] cc: Adina Langley M.D. [place] [address] Patient Name: ZACHARY MAYNARD MRN: [id number] date: 1945 Sex: F Assigned Patient Location: ER Current Patient Location: ER Accession/Order Number: [id number] Exam Date: 02/25/2024 19:38 Report Date: 02/25/2024 [...] M.D. Signed By: 02/25/242010 DD/ 07 TD/TT: Library Director:CT chest wo con Reviewed date:02/29/2024 05:39:19 PM Interpretation: Performing Lab: Notes/Report: Source Facility: [place] [address] [place] [address] CT Scan Report Signed Patient: ZACHARY MAYNARD MR#: [id number] : 1945 Acct:[id number] Age/Sex: 78 / F ADM Date: 02/25/24 Loc: ER Attending Dr: Ordering Physician: Valentina Guzman Date of Service: 02/25/24 Procedure(s): CT chest wo con Accession Number(s): [id number] cc: Adina Langley M.D. [place] [address] Patient Name: ZACHARY MAYNARD MRN: [id number] date: 1945 Sex: F Assigned Patient Location: ER Current Patient Location: ER Accession/Order Number: [id number] Exam Date: 02/25/2024 19:38 Report Date: 02/25/2024 [...] M.D. Signed By: 02/25/242010 DD/ 07 TD/TT: Library Director:ECG 12 lead Reviewed date:02/29/2024 05:39:19 PM Interpretation: Performing Lab: Notes/Report: Source Facility: [facility]-[address] [place] [address] [place] [address] Electrocardiograph Report Signed Patient: ZACHARY MAYNARD MR#: [id number] : 1945 Acct:[id number] Age/Sex: 78 / F ADM Date: 02/25/24 Loc: ER Attending Dr: Ordering Physician: Valentina Guzman Date of Service: 02/25/24 Procedure(s): ECG 12 lead Accession Number(s): [id number] cc: [facility] Test Date: 2024-02-25 Pat Name: ZACHARY MAYNARD Department: Room: - Gender: Female [employer]ight[employer]: : 1945 Requested By: ADINA LANGLEY Order Number: [id number] Reading MD: RYAN ROMERO Measurements Intervals Commerce Rate: 59 P: 30 NE: 164 QRS: -26 QRSD: 86 T: 37 QT: 448 QTc: 448 Interpretive Statements 1100 Sinus rhythm 5211 Minimal voltage criteria for LVH, may be normal variant 7202 Moderate left axis deviation 9130 borderline ECG Electronically Signed On 02-28-2024 8:11:01 EST by RYAN ROMERO Dictated By: Ryan RomeroONaya Signed By: 02/28/24 0811 DD/ 1858 TD/TT: Library Director:Troponin I High Sensitivity Reviewed date:02/29/2024 05:39:20 PM Interpretation: Performing Lab: Notes/Report: [facility] ,Troponin I High Sensitivity8.44.0-51.3 pg/mL CUT-OFF POINTS HAVE BEEN ESTABLISHED BASED ON THE FOURTH UNIVERSAL DEFINITION OF MYOCARDIAL INFARCTION. THE UPPER REFERENCE LIMIT (URL) OF TROPONIN, DEFINED THE 99TH PERCENTILE OF cTnI DISTRIBUTION IN A REFERENCE POPULATION, HAS BEEN CONFIRMED THE DECISION THRESHOLD FOR IA DIAGNOSIS. 99TH PERCENTILE = 51.4 PG/ML NOTE: HIGH-SENSITIVITY TROPONIN ASSAY IS NOT INTENDED TO BE USED IN ISOLATION BUT SHOULD BE INTERPRETED IN CONJUNCTION WITH OTHER DIAGNOSTIC AND CLINICAL INFORMATION. Performing Lab:see noteML - [facility] LBProthrombin Time INR Reviewed date:02/29/2024 05:39:20 PM Interpretation: Performing Lab: Notes/Report: [facility] ,Prothrombin Time11.19.0-11.6 secINR1.05 DESIRED INR: 2.0-3.0 CONDITIONS NOT LISTED BELOW 2.5-3.5 FOR PROSTHETIC HEART VALVE REPLACEMENT 2.5-3.5 RECURRENT THROMBOSIS Performing Lab:see noteML - [facility] LBPROF 14(COMP METB) Reviewed date:02/29/2024 05:39:20 PM Interpretation: Performing Lab: Notes/Report: [facility] ,Adpwcn161446-086 mmol/LPotassium4.33.5-5.1 mmol/WLuazvleh33929-732 mmol/LCarbon Syjxpfq25.421.0-32.0 mmol/LAnion Gap11.5Egjqzuy84163-078 mg/dLBlood Urea Kkhexebw67.07.0-18.0 mg/dLCreatinine1.890.55-1.02 mg/dLEstimated GFR ( Mmihpxe47>=60 mL/min/1.73m 2Estimated GFR (Non- Ame26>=60 mL/min/1.73m 2 BUN Creatinine Ratio13.5Nahepog3.98.5-10.1 mg/dLBilirubin Total0.40.2-1.0 mg/dL Aspartate Amino Bzvbbpkisbf2625-51 U/LAlanine Jbqiflztttpkxjoe7163-62 U/L Alkaline Qdnoqzfdcyg01828-420 U/LTotal Protein6.26.4-8.2 g/dLAlbumin Level2.9 3.4-5.0 g/dLGlobulin3.3Albumin Globulin Ratio0.9Performing Lab:see noteML - [facility] LBLIPASE Reviewed date:02/29/2024 05:39:20 PM Interpretation: Performing Lab: Notes/Report: [facility] ,Iqxacn51.016.0-77.0 U/LPerforming Lab:see noteML - [facility] LBCBC AUTO DIFF Reviewed date:02/29/2024 05:39:20 PM Interpretation: Performing Lab: Notes/Report: [facility] ,White Blood Count5.04.0-11.0 10 3/uLRed Blood Count3.154.20-5.40 10 6/uL Hemoglobin8.812.0-16.0 g/qNWzupurqbdv82.436.0-48.0 %Mean Corpuscular Sflvyg97.2 81.0-99.0 fLMean Corpuscular Fbvuofbyge39.926.7-34.0 pgMean Corpuscular HGB Conc 31.029.9-35.2 g/dLRed Cell Distribution Width16.911.0-15.0 %Platelet Zupmq537 150-450 10 3/uLMean Platelet Zvdkbz03.89.5-13.5 fLNeutrophils Percent Auto53.7 43.0-75.0 %Lymphocytes Percent Auto28.920.5-60.0 %Monocytes Percent Auto8.91.7- 12.0 %Eosinophils Percent Auto7.50.9-7.0 %Basophils Percent Auto0.60.2-2.0 % Immature Granulocytes Pct Auto0.40.0-0.5 %Neutrophils Absolute Auto2.71.4-6.5 10 3/uLLymphocytes Absolute Auto1.41.2-3.8 10 3/uLMonocytes Absolute Auto0.40.3- 0.8 10 3/uLEosinophils Absolute Auto0.40.0-0.7 10 3/uLBasophils Absolute Auto0.0 0.0-0.1 10 3/uLImmature Granulocytes Abs Auto0.020.00-0.03 10 3/uLPerforming Lab:see noteML - [facility] LBBNP Reviewed date:02/29/2024 05:39:20 PM Interpretation: Performing Lab: Notes/Report: [facility] ,NT Pro B Type Natriuretic Xrxb1381.0<=1800.0 pg/mLRESULTS CALLED TO ROSA ANDRADE RN at 1956Performing Lab:see note - [facility] LBCT cervical spine wo con Reviewed date:12/17/2024 03:32:32 PM Interpretation: Performing Lab: Notes/Report: Source Facility: [facility]-[address] [place] [address] [place] [address] CT Scan Report Signed Patient: ZACHARY MAYNARD MR#: [id number] : 1945 Acct:[id number] Age/Sex: 79 / F ADM Date: 12/17/24 Loc: ER Attending Dr: Ordering Physician: Mago Foreman Date of Service: 12/17/24 Procedure(s): CT cervical spine wo con Accession Number(s): [id number] cc: Adina Langley M.D. [address] [address] Patient Name: ZACHARY MAYNARD MRN: [id number] date: 1945 Sex: F Assigned Patient Location: ER Current Patient Location: ER Accession/Order Number: [id number] Exam Date: 12/17/2024 12:25 Report Date: 12/17/2024 [...] Bonds M.D. 12/17/2024 1:10 PM Dictation Location: [place] [address] Electronically authenticated by: [id number] Y Date: 12/17/2024 13:10 Dictated By: Xavier Bonds M.D. Signed By: 12/17/24 1313 DD/ 1310 TD/TT: Library Director:CT head/brain wo con Reviewed date:12/17/2024 03:32:32 PM Interpretation: Performing Lab: Notes/Report: Source Facility: [place] [address] CT Scan Report Signed Patient: ZACHARY MAYNARD MR#: [id number] : 1945 Acct:[id number] Age/Sex: 79 / F ADM Date: 12/17/24 Loc: ER Attending Dr: Ordering Physician: Mago Foreman Date of Service: 12/17/24 Procedure(s): CT head/brain wo con Accession Number(s): [id number] cc: Adina Langley M.D. [place] [address] Patient Name: ZACHARY MAYNARD MRN: [facility]:[id number] date: 1945 Sex: F Assigned Patient Location: ED.MAIN Current Patient Location: ER Accession/Order Number: [id number] Exam Date: 12/17/2024 12:25 Report Date: 12/17/2024 [...] Bonds M.D. 12/17/2024 1:10 PM Dictation Location: [place] [address] Electronically authenticated by: [id number] Y Date: 12/17/2024 13:10 Dictated By: Xavier Bonds M.D. Signed By: 12/17/24 1312 DD/ 1310 TD/TT: Library Director: Reason For Referral Diagnosis 1 Weakness (R53.1) Referral Organization [facility] Referring Provider First Name Enio Referring Provider Last Name Korin Referring Provider Speciality Family Med icine Referred Provider [facility], Physical Therap y Referred Provider Specialty Physical The rapist Referral Priority Routine Reason Unable to do PFT due to Passing out Diagnosis 1 Asthma (J45.909) Referral Organization [facility] Referring Provider First Name Enio Referring Provider Last Name Korin Referring Provider Speciality Family Amrit trinidad Referred Provider Zev Tirado Referred Provider Specialty Pulmonology Referral Priority Routine Medications Medication SIG (Take, Route, Frequency, Duration) Notes Start Date End Date Status Albuterol Sulfate HFA 108 (9 0 Base) MCG/ACT USE 2 INHALATIONS BY MOUTH 3 TIMES DAILY ; Duration: 90 ActiveAdbry 300 MG/2MLas directed Idphjgepeszt52/18/2025ActiveFurosemide 20 MG1 tablet Orally twice a day; Duration: 30 days5ActiveNitroglycerin 0.4 MG 1 tablet under the tongue and allow to dissolve as needed. Take every 5 minutes up to 3 times if chest pain persists Sublingual Three times a day01/05/2025 ActiveFerrous Sulfate 325 (65 Fe) MG1 tablet Orally BID5Active Spironolactone 25 MG1 tablet Orally Once a day5ActiveMemantine HCl ER 21 MGTAKE 1 CAPSULE BY MOUTH EVERY DAY; Duration: 90 daysActiveEzetimibe 10 MG TAKE 1 TABLET BY MOUTH DAILY; Duration: 90 daysActiveSpiriva HandiHaler 18 MCG1 capsule by inhaling the contents of the capsule using the HandiHaler device Inhalation Once a [id number] 6.25 MG1 tablet with food Orally Twice a day5ActiveMeclizine HCl 25 MGTAKE 1-2 TABLETS BY MOUTH THREE TIMES A DAY NEEDED.; Duration: 15ActiveEliquis 5 MGTAKE 1 TABLET BY MOUTH TWICE A DAY; Duration: 30ActiveRepatha SureClick 140 MG/MLas directed Auzyksamuysu20/08/2025ActiveAmiodarone HCl 200 MG1 tablet Orally Once a day ActiveLiothyronine Sodium 5 MCGTAKE 2 TABLETS ON AN EMPTY STOMACH ORALLY ONCE A DAY 30 DAYS; Duration: 90 daysActivePreserVision AREDS 2ActiveBreztri Aerosphere 160-9-4.8 MCG/ACT2 puffs Inhalation Twice a day5ActiveCeleXA 20 MG1 tablet Orally Once a day; Duration: 30 days5ActivePlavix 75 MG1 tablet Orally Once a day5ActiveamLODIPine Besylate 2.5 MG1 tablet Orally Once a day5ActiveProtonix 40 MG1 tablet Orally Once a day; Duration: 30 days 5Active Immunizations Vaccine Route Administration Date Status Comme nts Flu, Fluad (2395-7901) (72239) 65 yrs+, single-dose syringe IM Intramuscular 12/25/2022 Administered Flu, Fluad (79334) 65 yrs and older, single-dose syringe (0067-1445)IM Zvohveinvywbl14/14/2024dministeredFlu, Fluad (02481) 65 yrs and older, single- dose syringe (2004-9005)IM Gremfccgrhurj91/22/2025Administered Social History Tobacco Use: Social History Observation Description Date Details (start date - stop date) Former Smoker NA - 02/24/2010 Tobacco Use/Smoking Question Answer Notes Patient is a former smoker When did you stop smoking?02/24/2010lcohol Screen (Audit-C) Question Answer Notes Did you have a drink containing alcohol in the p ast year? No Ymuwxz7SedtgiqarqeedaVcurkbwnXXDFZ-S (Standard) Question Answer Notes Did you have a drink containing alcohol in the p ast year? 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)ActiveconfirmedProblemDiabetic peripheral neuropathy associated with type 2 diabetes mellitus (0910650434509)Type 2 diabetes mellitus with diabetic neuropathy, unspecified (E11.40)Activeconfirmed ProblemDrug-induced myopathy (723487646)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)Active confirmedProblemBlepharochalasis (44270344)Blepharochalasis unspecified eye, 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)ActiveconfirmedProblemVentricular fibrillation (22046080)Ventricular fibrillation (I49.01)ActiveconfirmedProblemUncomplicated asthma (disorder) (845263662)Unspecified asthma, uncomplicated (J45.909)Active confirmedProblemDiverticula of intestine (64455928)Diverticulosis of intestine, part unspecified, without perforation or abscess without bleeding (K57.90)Active confirmedProblemConstipation (60070648)Constipation, unspecified (K59.00)Active confirmedProblemVesicular eczema (disorder) (645221755)Dyshidrosis [pompholyx] (L30.1)ActiveconfirmedProblemPain of right shoulder region (finding) (1601983343)Pain in right shoulder (M25.511)ActiveconfirmedProblemPolymyalgia rheumatica (23632904)Polymyalgia rheumatica (M35.3)ActiveconfirmedProblemMuscle weakness (00482885)Muscle weakness (generalized) (M62.81)ActiveconfirmedProblem Fibromyalgia (236817188)Fibromyalgia (M79.7)ActiveconfirmedProblemDisorder of bone (30877336)Other specified disorders of bone density and structure, unspecified site (M85.80)ActiveconfirmedProblemArteriovenous malformation (34674946)Arteriovenous malformation, site unspecified (Q27.30)Activeconfirmed ProblemSpasm (90119892)Cramp and spasm (R25.2)ActiveconfirmedProblemFrequency of micturition (924656324)Frequency of micturition (R35.0)ActiveconfirmedProblem Localized edema (7902088)Localized edema (R60.0)ActiveconfirmedProblemOther injury of muscle, fascia and tendon of lower back, initial encounter (S39.092A) ActiveconfirmedProblemPostmenopausal state (85397034)Asymptomatic menopausal state (Z78.0)ActiveconfirmedProblemAtrial fibrillation (76017461)Atrial fibrillation (I48.91)ActiveconfirmedProblemHypertension (26746918)Hypertension (I10)ActiveconfirmedProblemOsteoarthritis (728740404)Osteoarthritis (M19.90) ActiveconfirmedProblemAsthma (600856901)Asthma (J45.909)ActiveconfirmedProblem Gastroesophageal reflux disease (489671037)GERD (gastroesophageal reflux disease) (K21.9)ActiveconfirmedProblemAtrial fibrillation (disorder) (37518440) Afib (I48.91)ActiveconfirmedProblemHypothyroid (92739127)Hypothyroid (E03.9) ActiveconfirmedProblemArteriovenous malformation (42926237)Arterio-venous malformation (Q27.30)ActiveconfirmedProblemOsteopenia (091408472)Osteopenia (M85.80)ActiveconfirmedProblemDyspnea (982308540)Dyspnea (R06.00)Activeconfirmed ProblemVertigo (079557874)Vertigo (R42)ActiveconfirmedProblemEczema (59962795) Eczema (L30.9)ActiveconfirmedProblemSinus tachycardia (41451174)Sinus tachycardia (R00.0)ActiveconfirmedProblemPain of right knee region (finding) (131316689084078)Knee pain, right (M25.561)ActiveconfirmedProblemEdema (874976572)Edema leg (R60.0)ActiveconfirmedProblemAcute bronchitis (54636951) Acute bronchitis (J20.9)ActiveconfirmedProblemVaricose veins (868713131)Varicose veins (I86.8)ActiveconfirmedProblemHypoglycemia (088217781)Hypoglycemia (E16.2) ActiveconfirmedProblemDiverticulitis (02127991)Diverticulitis (K57.92)Active confirmedProblemPlantar fasciitis (955079521)Plantar fasciitis (M72.2)Active confirmedProblemBenign neoplasm of cerebral meninges (69529702)Meningioma (D32.9)ActiveconfirmedProblemNear syncope (625540559)Near syncope (R55)Active confirmedProblemGallstones (182681522)Gallstones (K80.20)ActiveconfirmedProblem Right upper quadrant pain (659151885)Right upper quadrant abdominal pain (R10.11)ActiveconfirmedProblemGastroenteritis (92355969)Gastroenteritis (K52.9) ActiveconfirmedProblemEasy bruising (876376484)Easy bruisability (R23.8)Active confirmedProblemOverweight (364670252)Over weight (E66.3)ActiveconfirmedProblem Dyshidrotic eczema (168725545)Dyshidrotic eczema (L30.1)ActiveconfirmedProblem Nevus (2090567234)Nevus (D22.9)ActiveconfirmedProblemCervical strain (620655169) Cervical strain (S16.1XXA)ActiveconfirmedProblemDiverticular disease (613397579) Diverticular disease (K57.90)ActiveconfirmedProblemAcute bronchiolitis (3869405) Acute bronchiolitis (J21.9)ActiveconfirmedProblemCramp in lower limb (085779444) Leg cramp (R25.2)ActiveconfirmedProblemPruritic disorders (910299831)Pruritic condition (L29.9)ActiveconfirmedProblemChronic obstructive pulmonary disease (55572515)Advanced COPD (J44.9)ActiveconfirmedProblemAcute cystitis (76490277) Acute cystitis (N30.00)ActiveconfirmedProblemAcute urinary tract infection (785851306)Acute UTI (N39.0)ActiveconfirmedProblemDiabetic peripheral neuropathy associated with type 2 diabetes mellitus (7138399045945)Neuropathy, diabetic (E11.40)ActiveconfirmedProblemDementia (96307340)Advanced dementia (F03.90) ActiveconfirmedProblemAt risk for falls (561346348)At risk for falls (Z91.81) ActiveconfirmedProblemBenign mammary dysplasia (67699844)Benign mammary dysplasia (N60.99)ActiveconfirmedProblemAcute heart failure (35084227)Acute heart failure (I50.9)ActiveconfirmedProblemEssential hypertension (76951491)BP (high blood pressure) (I10)ActiveconfirmedProblemPure hypercholesterolemia (531489401)Pure hypercholesterolemia, unspecified (E78.00)ActiveconfirmedProblem Type II diabetes mellitus without complication (909754069)Diabetes (E11.9)Active confirmedProblemDiabetes mellitus (54770097)Diabetes mellitus (E11.9)Active confirmedProblemChronic kidney disease stage 3A (disorder) (032299005)Chronic kidney disease, stage 3a (N18.31)ActiveconfirmedProblemLow back pain (012848930) Low back pain, unspecified (M54.50)Activeconfirmed Vital Signs Heart Rate 52 /min 01/05/2025 Xvbjpgckpgm14.2 degrees Swmvhbeqjl41/31/9986Miuzozdq07 %01/05/2025lood pressure mm Hg01/05/20250330Vsqzky33 in01/05/2025lood pressure fabefimf076 mm Hg01/05/20253844Ukoxrt469.2 lbs103/07/2024BMI28.38 kg/m201/05/2025 Procedures Procedure Date Ordered Date Performed Result Body Sit e Echocardiogram 08/16/2024 N/AHolter Monitor - 3 days up to 14 days12/20/2024N/A*CARDIO Stress Test - Lexiscan Qwjochm0012/20/2024N/A Encounters Encounter Location Date Provider Diagnosis [address] [address] 03/26/2024 Enio Hoy Diverticulitis K57.[address] [address] 05/28/2024 Enio Hoy Acute bronchiolitis J21.9 [facility] [address] [place] [address] 07/21/2024 Enio Hoy Burning with urinati on R30.0 ; Pain in right shoulder M25.511 and Acute UTI N39.0 [facility] [address] [place] [address] 08/16/2024 Enio Hoy UTI (urinary tract infection) N39.0 ; Advanced dementia F03.90 ; Chronic kidney disease, stage 3a N18.31 ; Tinea corporis B35.4 and Dyspnea R06.00 [facility] [address] [place] [address] 08/31/2024 Enio Hoy Right upper quadrant abdominal pain R10.11 and Weakness R53.1 [facility] [address] [place] [address] 10/20/2024 Enio Hoy Type 2 diabetes marion itus with diabetic neuropathy, unspecified E11.40 ; Afib I48.91 ; Hypothyroid E03.9 ; Essential (primary) hypertension I10 ; Diabetes E11.9 ; Acute UTI N39.0 and Dysuria R30.0 [address] [place] [address] 03/03/2024 Enio Hoy Advanced COPD J44.9 ; Acute heart failure I50.9 ; Ventricular fibrillation I49.01 ; Neuropathy, diabetic E11.40 ; Type 2 diabetes mellitus with diabetic neuropathy, unspecified E11.40 ; Atrial fibrillation I48.91 and Afib I48.91 [address] [place] [address] 03/08/2024 Enio Hoy Essential (primary) hypertension I10 [address] [place] [address] 12/20/2024 Enio Hoy Near syncope R55 [address] [place] [address] 01/05/2025 Enio Hoy Dyspnea R06.00 ; Ast hma J45.909 ; GERD (gastroesophageal reflux disease) K21.9 and Hypertension I10 [facility] [address] [place] [address] 12/15/2024 Enio Hoy Acute non-recurrent sinusitis, unspecified location J01.90 ; Nasal congestion R09.81 and Encounter for immunization Z23 [facility] [address] [place] [address] 02/11/2024 Enio Hoy [facility] [place] [address] 02/16/2024oug [facility] [place] [address]/oug [facility] [place] [address]/Doug [facility] [place] [address]/Doug [facility] [place] [address]/Doug [facility] [place] [address]/04/2024 [facility] [place] [address]/06/2024Doug HoyLeft arm pain M79.602[facility] [address] [place] [address]/07/2024Doug HoyLeft wrist pain M25.532[facility] [place] [address]/08/2024Doug [facility] [place] [address]/Doug [facility] [place] [address]/05/2024Doug HoyAcute bronchiolitis J21.9 [facility] [place] [address] 06/11/2024Doug [facility] [place] [address]/01/2025Doug [facility] [place] [address]/01/2025[facility] [place] [address]/Doug HoyHypothyroid E03.9 ; Acute heart failure I50.9 and SOB (shortness of breath) R06.02[facility] [place] [address]/Doug [facility] [place] [address]/ [facility] [place] [address]/Doug [facility] [place] [address]/Doug HoyGallstones K80.20[facility] [place] [address]/Doug [facility] [place] [address]/03/2024 [facility] [place] [address]/Doug [facility] [place] [address]/Doug HoyAcute non-recurrent sinusitis, unspecified location J01.90[facility] [place] [address]/06/2024Doug [facility] [place] [address]/06/2024Doug [facility] [place] [address]/08/2024Doug [facility] [place] [address]/11/2024Doug HoyEssential (primary) hypertension [facility]10[facility] [place] [address]/Doug [facility] [place] [address]/Doug [facility] [address] [place] [address]/03/2024Enio Langley Assessments Encounter Date Diagnosis (ICD Code) Assessment Notes Treatment Notes Treatment Clinical Notes Section Notes 03/03/2024 Advanced COPD (ICD-10 - J44.9) 03/08/2024Essential (primary) hypertension (ICD-10 - I10)fatigue an hypotension -near syncope - stiopping sgabbjpem21/31/2025Diverticulitis (ICD-10 - K57.92) 05/28/2024ute bronchiolitis (ICD-10 - J21.9)07/21/2024urning with urination (ICD-10 - R30.0)07/21/2024Pain in right shoulder (ICD-10 - M25.511)08/16/2024UTI (urinary tract infection) (ICD-10 - N39.0)chekcing urine culer and urnifro nwoukqg8708/16/2024dvanced dementia (ICD-10 - F03.90)memory part pretty stable no argument from xvkkyrs1308/31/2024Right upper quadrant abdominal pain (ICD-10 - R10.11)08/31/2024Weakness (ICD-10 - R53.1)10/20/2024Type 2 diabetes mellitus with diabetic neuropathy, unspecified (ICD-10 - E11.40)10/20/2024fib (ICD-10 - I48.91)rate /27/2025Near syncope (ICD-10 - R55)01/05/2025Dyspnea (ICD-10 - R06.00)01/05/2025sthma (ICD-10 - J45.909) setting up with pulmonology adding breztri 03/31/2024Left arm pain (ICD-10 - M79.602)04/01/2024Left wrist pain (ICD-10 - M25.532)05/28/2024ute bronchiolitis (ICD-10 - J21.9)08/16/2024Hypothyroid (ICD-10 - E03.9)5Acute heart failure (ICD-10 - I50.9)12/15/2024ute non-recurrent sinusitis, unspecified location (ICD-10 - J01.90)Rest and drink more liquids, especially water. You may use a humidifier or vaporizer to help keep the drainage moist. Ouyc-lis-jnqsnza Nasal Saline may help the stuffy and runny nose. Use Ibuprofen and or Tylenol as needed for fever, chills, body aches or pain. Children 5 years old should not be given bflm-ghg-wmrbxtm cough and cold medications such as guaifenesin and dextromethorphan. If you're over age 5, you may try nvrj-ehp-ynjylte cold medications such as guaifenesin and dextromethorphan, [...] K80.20)5Acute non-recurrent sinusitis, unspecified location (ICD-10 - J01.90)01/03/2025Essential (primary) hypertension (ICD-10 - I10)12/15/2024Nasal congestion (ICD-10 - R09.81)08/16/2024SOB (shortness of breath) (ICD-10 - R06.02)01/05/2025GERD (gastroesophageal reflux disease) (ICD-10 - K21.9) 10/20/2024Hypothyroid (ICD-10 - E03.9)ecopuraged to take ,med08/16/2024hronic kidney disease, stage 3a (ICD-10 - N18.31)checing uirn protien and bun creat today5Acute UTI (ICD-10 - N39.0)5Acute heart failure (ICD-10 - I50.9)seein toftyvuhlnx69/08/2025Ventricular fibrillation (ICD-10 - I49.01) 08/16/2024Tinea corporis (ICD-10 - B35.4)kmieprvgndbj66/27/2025Essential (primary) hypertension (ICD-10 - I10)up - adjusting meds103/07/2024Hypertension (ICD-10 - I10)12/15/2024Encounter for immunization (ICD-10 - Z23)10/20/2024 Diabetes (ICD-10 - E11.9)fwtjdex6003/03/2024Neuropathy, diabetic (ICD-10 - E11.40) 03/03/2024Type 2 diabetes [...] PANEL (CHOL/TRIG/HDL/LDL) 11/19/19 24 CBC WITH DIFF (EXP 12/2024) 11/19/2023 VITAMIN D, 25 LEVEL (TOTAL) 11/19/2023 Echocardiogram 11/27/2023 Echocardiogram 08/16/2024 CARDIO Echocardiogram 11/19/2023 Urinalysis Microscopic 08/16/2024 RANDOM URINE PROTEIN 08/16/2024 UA (URINALYSIS), COMPLETE (41173) - IN O FFICE 08/30/2022 GLUCOSE - [...] [employer] [address] [address] [place], [place] [id number] Zachary Maynard Self - patient is the insured 3 [employer] C[employer] MEDICAREPO [address] [address] [place], [place] [phone] [id number], GrettaSelf - patient is the insured Medications Administered Medication Instructions Date of Administration Dosage Notes Dexamethasone, 4mg/mL mg8 mgDexamethasone, 4mg/mL mg8 mgDexamethasone, 4mg/mL mgDexamethasone, 4mg/mL mgKenalog-4004/0 mg80 mg Kenalog-400620 cy337Wzukdfu-4013/23/202380 oh38Kclanbvte Tromethamine yq26Lofmxabciftia 40 mg/ml mg Medical (General) History Medical [...] Diverticular disease K57.90 Surgical History Surgery Date(Month/Year) Right Long Finger and ring finger 04/2023 Breast Cyst removed HysterectomyBilateral Foot SurgeryCardiac cath12/17Aorta Patch- stents to kidney and bowelHospitalization History Reason Date(Month/Year) [facility] 2024 Aorta Patch 01/2024 A-fib 12/17 sepsis 2019
--- OUTSIDE RECORDS SUMMARY | 2025-02-10 10:58 | XMS_ITS | Clinical Summary ---
Author Organization [facility] Address [address] [place] [address] Care Team Providers Care [employer] Name Role Phone Velasquez Langley MD Primary Care Provider [phone] Allergies Active AllergyReactionsCriticalityNoted DateCommentsAtorvastatinUnknown 01/15/20235295HjeqfynwNlswtcd92/22/3179ZazzkytcpjernZynkkxs06/04/2018 Other Reaction(s): Vomiting JgiqqlufxfXxrliheqeswQxqh59/04/2018 Other Reaction(s): Anaphylaxis, Unknown Meperidine MimHjuijkx89/22/2023MoxifloxacinAnaphylaxis,FlpcyyaOlmt29/04/2018 Other Reaction(s): Other Had to bring me back. Had to pump my heart GsprajhfrvJpodxpq60/04/2018 Other Reaction(s): Itching Promethazine Hcl0452OgjmqsfkgyyaSgrvtwj80/04/2018 Other Reaction(s): Unknown Reaction IupvyznJvgkswe23/04/2018Sulfa HdffyfzkepyNoogedz86/04/2018 Other Reaction(s): Itching Wound Dressing ReipyplbZxgkccj30/30/2023 Medications MedicationSigDispense QuantityRefillsLast FilledStart DateEnd DateStatus memantine [...] InformationValueDate RecordedSex Assigned at BirthNot on fileLegal BkpMazhlx08/15/2023 7:09 PM EDTGender IdentityNot on fileSexual OrientationNot on file Last Filed Vital Signs Vital SignReadingTime TakenCommentsBlood Pressure--Pulse--Temperature-- Respiratory Rate--Oxygen Saturation--Inhaled Oxygen Concentration--Jetltg16.1 kg (159 lb)01/06/2023 10:45 AM CUXIqbtyy570 cm (5' 3 )01/06/2023 10:45 AM ESTBody Mass Index28.17103/08/2022 10:45 AM EST Plan of Treatment Health MaintenanceDue DateLast DoneCommentsPneumococcal Vaccine: 65+ Years (2 of 2 - PCV)/COVID-19 Vaccine (5 - 2024- season)2024 12/20/2020, 05/19/2020, 04/21/2020, Additional history existsInfluenza Vaccine (#1)/06/2019 Insurance Care Teams Team MemberRelationshipSpecialtyStart DateEnd Velasquez Langley MD PCP - GeneralFamily Nuqmubxj66/13/23
[2025-02-10 11:58] LABS: Sodium 141 mmol/L (136-145)
[2025-02-10 11:59] LABS: Alanine Aminotransferase 20 U/L (14-59); Anion Gap 4.7; Aspartate Amino Transferase 21 U/L (15-37); Blood Urea Nitrogen 13.0 mg/dL (7.0-18.0); Calcium 8.7 mg/dL (8.5-10.1); Carbon Dioxide 32.3 mmol/L (21.0-32.0); Chloride 107 mmol/L (98-107); Estimated GFR (African America 53 (>=60 mL/min/1.73m^2); Estimated GFR (Non-African Ame 44 (>=60 mL/min/1.73m^2); Glucose 103 mg/dL (74-106); Potassium 3.0 mmol/L (3.5-5.1)
[2025-02-10 12:00] LABS: Cholesterol 101 mg/dL (<=200); HDL Cholesterol 42 mg/dL (40-60); Thyroid Stimulating Hormone 2.341 uIU/mL (0.358-3.740); Triglycerides 123 mg/dL (<=150); VLDL CHOLESTEROL 24.6 mg/dL
[2025-02-10 12:02] LABS: NT Pro B Type Natriuretic Pept 5497.0 pg/mL (<=1800.0)
== END 2025-02-10 10:54 | disposition home or self-care (01) ==
LOC: LAB 10:54
PROVIDERS: PCP Family Medicine; Visit Provider Internal Medicine Cardiovascular Disease
DX: E78.00 Pure hypercholesterolemia, unspecified (principal); I50.32 Chronic diastolic (congestive) heart failure; I48.0 Paroxysmal atrial fibrillation
CPT/HCPCS: 36415; 80048; 80061; 83880; 84443; 84450; 84460

== ENCOUNTER 2025-02-15 13:02 | Outpatient (OUT) | payer MEDICARE, SELFPAY ==
--- OUTSIDE RECORDS SUMMARY | 2025-02-07 13:20 | XMS_ITS | Encounter Summary ---
Author Organization [facility] Address [address] [place] [address] Care Team Providers Care Ncr Operator Name Role Phone Velasquez Langley MD Primary Care Provider Reason for Referral * Imaging (Routine) - Pending ReviewSpecialtyDiagnoses / ProceduresReferred By ContactReferred To ContactCardiology Diagnoses Absence of pulse in single extremity Procedures Vascular US upper extremity arterial duplex bilateral Bhavesh Fulton MD [address] [facility] [address] [place] [address] Phone: tel: fax: Referral IDStatusReasonStart DateExpiration DateVisits RequestedVisits [id number] Review Perform Procedure Reason for Visit * ReasonCommentsShortness of BreathC/o SOB.SyncopeWore 30 day event monitor s/p hospital admission for syncope and hypertensive urgency. Denies recurrence. HypertensionBP still up and down .PalpitationsWas up the other night for a few hours with palpitations she says.Atrial FibrillationDenies bleeding on Eliquis.Congestive Heart FailureTaking furosemide every other day. Encounter Details DateTypeDepartmentCare Team (Latest Contact Info)Nmpgdulyrdl97/15/2025 1:20 PM ESTOffice Visit [facility] [address] [place] [address] Bhavesh Fulton MD [address] [facility] [address] [place] [address] Near syncope (Primary Dx); Vertigo; Chronic diastolic heart failure (CMS/HCC); Coronary artery disease involving [place] coronary artery of [place] heart without angina pectoris; Paroxysmal atrial fibrillation (CMS/HCC); NSVT (nonsustained ventricular tachycardia) (CMS/HCC); Absence of pulse in single extremity; Abdominal aortic aneurysm (AAA) without rupture, unspecified part; Mesenteric artery stenosis; Essential hypertension; Pure hypercholesterolemia; Stage 3a chronic kidney disease (CMS/HCC) Social History Tobacco UseTypesPacks/DayYears UsedDateSmoking Tobacco: FormerCigarettes Smokeless Tobacco: NeverAlcohol UseStandard Drinks/WeekCommentsNever0 (1 standard drink = 0.6 oz pure alcohol)[facility] UtilitiesAnswerDate RecordedIn the past 12 months has the [employer] gas, oil, or water [employer] threatened to shut off services in your home?No08/26/2024Humiliation, Afraid, Rape, and Kick questionnaireAnswerDate RecordedWithin the last year, have you been afraid of your partner or ex-partner?No08/26/2024Within the last year, have you been humiliated or emotionally abused in other ways by your partner or ex-partner?No 08/26/2024Within the last year, have you been kicked, hit, slapped, or otherwise physically hurt by your partner or ex-partner?08/26/2024Within the last year, have you been raped [...] times a week01/27/2024How often do you attend judaism or sabianism services?Never01/27/2024o you belong to any clubs or organizations such as judaism groups, unions, fraternal or athletic groups, or school groups?No01/27/2024How often do you attend meetings of the clubs or organizations you belong to?Never01/27/2024re you , , , , never , or living with a partner?Ssbeicb2001/27/2024 AUDIT-CAnswerDate RecordedQ1: How often do you have [...] RecordedPatient Health Questionnaire-2 Score0 05/11/2024[facility] [place] [facility] - Occupational Stress QuestionnaireAnswerDate RecordedDo you feel stress - tense, restless, nervous, or anxious, or unable to sleep at night because yourmind is troubled all the time - these days?To some nmuuam6101/27/2024UT Safety & EnvironmentAnswerDate RecordedFear of Current or Ex-PartnerNot on file04/17/2023Emotionally AbusedNot on file04/17/2023hysically AbusedNot on file04/17/2023Sexually AbusedNot on file04/17/2023hysically or Sexually AbusedNot on file04/17/2023Transportation AnswerDate RecordedIn the past 12 months, has lack of transportation kept you from medical appointments or from getting medications?No08/26/2024Lack of Transportation (Non-Medical)Not on file08/26/2024Housing Stability Vital Sign AnswerDate RecordedIn the last 12 months, was there a time when you were not able to pay the mortgage or rent on time?No08/26/2024Number of Times Moved in the Last YearNot on file08/26/2024t any time in the past 12 months, were you homeless or living in a retirement (including now)?No08/26/2024Hunger Vital Sign AnswerDate RecordedWithin the past 12 months, you worried that your food would run out before you got the money to buymore.Never true08/26/2024Ran Out of Food in the Last YearNot on file08/26/2024CommentsNoSex and Gender InformationValueDate RecordedSex Assigned at QujldRdnxnn25/03/2024 11:08 AM EST Legal XfePcxpnd33/29/2022 11:01 PM EDTGender JugxjnedNhjrfl38/03/2024 11:08 AM ESTSexual OrientationHeterosexual or Hcpefckb72/03/2024 11:08 AM ESTdocumented as of this encounter Last Filed Vital Signs Vital SignReadingTime TakenCommentsBlood Pyedtwfc627/5402/07/2025 1:38 PM EST Aclrg337802/07/2025 1:38 PM ESTTemperature--Respiratory Rate--Oxygen Iubclputbo16% 02/07/2025 1:38 PM ESTInhaled Oxygen Concentration--Kdmbns00.5 kg (162 lb) 02/07/2025 1:38 PM QLEKerbou287 cm (5' 3 )02/07/2025 1:38 PM ESTBody Mass Index 28.7104/10/2024 1:38 PM ESTdocumented in this encounter Progress Notes * Bhavesh Fulton MD - 02/07/2025 1:20 PM EST Images from the original note were not included. MA Cardiology [facility] Conchis Johnson is a 79 y.o. year old female patient being seen for follow-up visit after hospital discharge, also FU on chronic diastolic heart failure, nonobstructive coronary artery disease, PAD, nonsustained ventricular tachycardia, hypertension, and hyperlipidemia HPI 02/07/2025 Patient was admitted recently to the hospital, apparently while she was doing PFT for amiodarone treatment and she became significantly light headed but according to her she did not pass out. The patient has chronic vertigo and she feels extremely unbalanced particularly when she does not use walker and that makes her fall a lot, she and her report that she fell twice last week, she feelsthat things are moving around her. Also she has the same symptoms when she reach above her head with her arms and she reports that a week ago she fell backward without passing out when she was tryingto reach for her shirts in the closet. All the workup in the hospital was negative and she was evaluated by cardiology [facility] who recommended to discharge her with 30-day event monitor She reports feeling short of breath with exertion however her reports that if she put 1 L of oxygen she feels much better. She never been evaluated if she requires oxygen She denies chest pain or palpitation or orthopnea or paroxysmal nocturnal dyspnea or legs edema 12/22/2024 Patient is here today for follow-up visit. She reports worsening shortness of breath. She is not taking Lasix any more. She reports that her blood pressure at home has been in the 150s to 160s. She denies eating high salt diet. She has chronic vertigo and last Friday it was bad that she fell and she has bruises on her face. Due to the shortness of breath she had a course of antibiotics and steroids per her PCP however she did not see significant improvement. The day she went to the emergency room because of the fall 12/17/[address] she [address] a chest CT which [...] Itching Promethazine Unknown Other Reaction(s): Unknown Reaction Uwvyqbw-Sha-Xrb Reductase Inhibitors Unknown Sulfa (Sulfonamide Antibiotics) Itching [...] 240 doses., Disp: 120 tablet, Rfl: 3 uglgavrsoj-qtuztfds-caxapjpnqr (Breztri Aerosphere) 160-9-4.8 mcg/actuation HFA aerosol inhaler, every 12 (twelve) hours., Disp: , Rfl: carvedilol (Coreg) 6.25 mg tablet, Take 1 tablet (6.25 mg) by mouth two times daily., Disp: 180 tablet, Rfl: 3 clopidogrel (Plavix) 75 mg tablet, Take 1 tablet (75 mg) by mouth in the morning., Disp: 90 tablet,Rfl: 3 evolocumab (Repatha SureClick) 140 mg/mL pen injector, Inject 1 mL under the skin every 14 (fourteen) days., Disp: 6 mL, Rfl: 3 ezetimibe (Zetia) 10 mg tablet, Take 10 mg by mouth in the morning., Disp: , Rfl: ferrous sulfate 325 (65 Fe) MG tablet, Take 325 mg by mouth 2 times daily., Disp: , Rfl: furosemide (Lasix) 20 mg tablet, Take 1 tablet (20 mg) by mouth in the morning. (Patient taking differently: Take 20 mg by mouth every other day.), Disp: 30 tablet, Rfl: 11 liothyronine (Cytomel) 5 mcg tablet, Take by mouth in the morning. (Patient taking differently: Take 10 mcg by mouth in the morning.), Disp: , Rfl: meclizine (Antivert) 25 mg tablet, Take 50 mg by mouth if needed for dizziness., Disp: , Rfl: memantine (Namenda XR) 28 mg capsule,sprinkle,ER 24hr, Take 28 mg by mouth in the morning., Disp: ,Rfl: nitroglycerin (Nitrostat) 0.4 mg SL tablet, Place 0.4 mg under the tongue every 5 (five) minutes ifneeded for chest pain., Disp: , Rfl: pantoprazole (ProtoNix) 40 mg EC tablet, Take 40 mg by mouth in the morning., Disp: , Rfl: rOPINIRole (Requip) 0.5 mg tablet, Take 0.5 mg by mouth at bedtime., Disp: , Rfl: tiotropium (Spiriva with HandiHaler) 18 mcg inhalation capsule, if needed., Disp: , Rfl: Objective Visit Vitals BP 104/54 (BP Location: Left arm, Patient Position: Sitting) Pulse 51 Ht 1.6 m (5' 3 ) Wt 73.5 kg (162 lb) SpO2 95% BMI 28.70 kg/m?? OB Status Postmenopausal Smoking Status Former BSA 1.81 m?? Physical exam: GENERAL: alert and oriented [...] normal, no organomegaly, midline surgical scar. EXTREMITIES: mild edema of the both lower extremities. Right radial pulse is +2, left radial pulse is not palpable NEURO: Grossly normal PSYCH: appropriate mood, affect, [...] effusion versus fat pad Echo: 11/26/2023 at [facility] 30-day event monitor 12/31/2024 - 01/29/2025 Sinus rhythm with heart rate 44 to 90 bpm, average heart rate 55 bpm 4 events of nonsustained V. tach 3-6 beats, asymptomatic PACs less than 1% PVCs less than 1% No symptoms reported by the patient Invasive vascular procedure 02/05/2024 Procedures MESENTERIC ANGIOGRAM 76822 - IN OFFICE/OUTPT VISIT,PROCEDURE ONLY BALLOON EXBANDABLE STENTING OF CELIAC AND SMA ARTERIES [id number] - IN OFFICE/OUTPT VISIT,PROCEDURE ONLY Gilberto Whitten Invasive vascular procedure 01/28/2024 Procedures PERC ACCESS AND CLOSURE OF BILAT FEMORAL ARTERY, ENDOVASCULAR AAA REPAIR Aorta angiogram REPAIR, AAA, ENDOVASCULAR, USING WDTOW-AT-XCXZA ENDOGRAFT Placement of enhanced fixation device, aptus [...] the chest, abdomen and pelvis 02/25/2024 Assessment/Plan Recent near-syncope, etiology is not clear 30-day event monitor did not show any pauses or significant arrhythmia but it shows 4short runs of nonsustained ventricular tachycardia 3, 4, 5, and 6 beats, asymptomatic. Near syncope could be due to hyperventilation during PFT. Also the patient has chronic history of vertigo and on examination in the office she became very unsteady and almost fell when I asked her to change position from sitting to standing although I was holding her hand Chronic diastolic heart failure On Coreg, 6.25 mg twice daily, and Lasix 20 mg which she takes every other day. Clinically stable ZAVALA , partially due to to diastolic heart failure but she also carries the diagnosis of COPD and her reports that she feels better with oxygen Mild nonobstructive coronary artery disease per cardiac catheterization 12/05/2023 On Eliquis, Coreg, Zetia, and Repatha. Clinically stable Paroxysmal A-fib diagnosed November 2023, maintaining normal sinus rhythm on amiodarone. On Eliquis for anticoagulation History of nonsustained ventricular tachycardia, on amiodarone Recent event monitor showed recurrence but asymptomatic Absence of left radial pulse on exam. History of abdominal aortic aneurysm, status post endograft repair 01/28/2024 Dr. Yates at [facility]. 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 She underwent again angiogram with drug-coated balloon angioplasty of celiac artery, superior mesenteric artery on 08/26/2024. She is on Plavix Hypertension, on Coreg and Lasix which she takes every other day. Blood pressure appears good today Hyperlipidemia, she is on Repatha and Zetia Type 2 diabetes mellitus Chronic kidney disease COPD Remote history of smoking, for many years and quit 17 years ago Mild dementia Obesity, BMI 28.7 Unsteady gait and falls due to chronic vertigo Chronic vertigo caused recurrent falls Plan: Continue current medications including Eliquis, Plavix, Coreg, Lasix QOD, Zetia, Repatha, and amiodarone. Patient refuses to increase her Lasix to every day due to frequent dryness in her skin Check lipids and AST ALT and TSH Obtain complete pulmonary function test with 6-minute walk to evaluate if she needs to be on oxygenand also follow-up on amiodarone treatment and to evaluate if truly has COPD I will refer her to EP to evaluate recurrence of V. tach and also if she needs a loop recorder to evaluate her recurrent falling and dizziness although the patient has chronic history of vertigo I will obtain upper extremities arterial Doppler study due to absence of left radial pulse on examination. If she has a proximal subclavian artery stenosis could cause dizziness and vertigo Continue to follow-up with the vascular surgery regarding her aortic aneurysms and celiac stent Follow-up with me in 2 month Bhavesh Fulton MD,FACC documented in this encounter Plan of Treatment DateTypeDepartmentCare Team (Latest Contact Info)Xjeuaziyyxv43/05/2026 1:20 PM ESTOffice Visit [facility] [address] [place] [address] Bhavesh Fulton MD [address] [place] [address] NameTypePriorityAssociated DiagnosesOrder ScheduleVascular US upper extremity arterial duplex bilateralVascular UltrasoundRoutine Absence of pulse in single extremity Expected: 02/07/2025 (Approximate), Expires: 02/07/2027NamePriorityAssociated DiagnosesDate/TimeLOOP INSERTION NSVT (nonsustained ventricular tachycardia) (CMS/HCC) documented as of this encounter Visit Diagnoses Diagnosis Near syncope- Primary Vertigo Dizziness and giddiness Chronic diastolic heart failure (CMS/HCC) Chronic diastolic heart failure Coronary artery disease involving [place] coronary artery of [place] heart without angina pectoris Paroxysmal atrial fibrillation (CMS/HCC) Atrial fibrillation NSVT (nonsustained ventricular tachycardia) (CMS/HCC) Absence of pulse in single extremity Abdominal aortic aneurysm (AAA) without rupture, unspecified part Mesenteric artery stenosis Stricture of artery Essential hypertension Unspecified essential hypertension Pure hypercholesterolemia Stage 3a chronic kidney disease (CMS/HCC) documented in this encounter Care Teams Team MemberRelationshipSpecialtyStart DateEnd Date Velasquez Langley MD [address] [facility] [address] [address] PCP - Cczghyp55/8/24documented as of this encounter
--- OUTSIDE RECORDS SUMMARY | 2025-02-08 13:45 | XMS_ITS | Encounter Summary ---
Author Organization [facility] Address [address] [place] [address] Care Team Providers Care River Rat Name Role Phone Velasquez Langley MD Primary Care Provider [phone] Reason for Visit * ReasonCommentsFollow-upPatient is here today for a follow up, per Dr. Fulton unable to feel pulse in left armAtrial FibrillationHyperlipidemiaHypertension Coronary Artery DiseaseCongestive Heart FailureShortness of Breath Encounter Details DateTypeDepartmentCare Team (Latest Contact Info)Zdwrgkpbdtw38/16/2025 1:45 PM ESTOffice Visit [facility] [address] [place] [address] Dusty Weaver MD [address] [place] [address] Paroxysmal atrial fibrillation (CMS/HCC) (Primary Dx); NSVT (nonsustained ventricular tachycardia) (CMS/HCC) Social History Tobacco UseTypesPacks/DayYears UsedDateSmoking Tobacco: FormerCigarettes Smokeless Tobacco: NeverAlcohol UseStandard Drinks/WeekCommentsNever0 (1 standard drink = 0.6 oz pure alcohol)[facility] UtilitiesAnswerDate RecordedIn the past 12 months [...] times a week01/27/2024How often do you attend jewish or confucianist services?Never01/27/2024o you belong to any clubs or organizations such as jewish groups, unions, fraternal or athletic groups, or school groups?No01/27/2024How often do you attend meetings of the clubs or organizations you belong to?Never01/27/2024re you , , , , never , or living with a partner?Sikraic1801/27/2024 AUDIT-CAnswerDate RecordedQ1: How often do you have [...] at all 08/26/2024PHQ-2AnswerDate RecordedPatient Health Questionnaire-2 Score0 05/11/2024[facility] [place] of Occupational Health - Occupational Stress QuestionnaireAnswerDate RecordedDo you feel stress - tense, restless, nervous, or anxious, or unable to sleep at night because yourmind is troubled all the time - these days?To some ghiacd4801/27/2024UT Safety & EnvironmentAnswerDate RecordedFear of Current or [...] were you homeless or living in a residential (including now)?No08/26/2024Hunger Vital Sign AnswerDate RecordedWithin the past 12 months, you worried that your food would run out before you got the money to buymore.Never true08/26/2024Ran Out of Food in the Last YearNot on file08/26/2024CommentsNoSex and Gender InformationValueDate RecordedSex Assigned at EhdrxQrkvpy47/03/2024 11:08 AM EST Legal DhgCrmyev38/29/2022 11:01 PM EDTGender UkvsjvjxVwqsjv32/03/2024 11:08 AM ESTSexual OrientationHeterosexual or Zmajnuca96/03/2024 11:08 AM ESTdocumented as of this encounter Last Filed Vital Signs Vital SignReadingTime TakenCommentsBlood Cicmwdcn149/6202/08/2025 1:50 PM EST Uncdz750902/08/2025 1:50 PM ESTTemperature--Respiratory Rate--Oxygen Skxpeffalr31% 02/08/2025 1:50 PM ESTInhaled Oxygen Concentration--Cxmmge35.5 kg (162 lb) 02/08/2025 1:42 PM LLTJogdin926 cm (5' 3 )02/08/2025 1:42 PM ESTBody Mass Index 28.7104/11/2024 1:42 PM ESTdocumented in this encounter Progress Notes * Dusty Weaver MD - 02/08/2025 1:45 PM EST Images from the original note were not included. [place] Electrophysiology Consult Note [place] Cardiology - [facility] Reason for visit: Afib 02/08/2025 Patient [...] up PAF s/p EVAR last month at [facility]. She was seen in [facility] ED 2 weeks ago for abdominal [...] STAFFORD on 02/16/24 after her admission to [facility] where she had Ceiliac and SMA stenosis and underwent stenting on 02/05/24 and is also known to have s/p EVAR on 01/28/24. She is on Amio for her Afib. 12/02/23 Prior HPI: Shayy Johnson is a 79 y.o. year old with past medical history of Past medical history of COPD, uterine cancer, diabetes, hypertension was recently admitted to [facility] and noted to be in A-fib [...] on file Stress: Stress Concern Present (01/27/2024) [place] of Occupational Health - Occupational Stress Questionnaire Feeling of Stress : To some extent Social Connections: Moderately Isolated (01/27/2024) Social Connection and Isolation Panel Frequency of Communication with Friends and Family: More than three times a week Frequency of Social Gatherings with Friends and Family: More than three times a week Attends Catholic Services: Never Active Member of Clubs or [...] Year: No Utilities: Not At Risk (08/26/2024) [facility] Utilities Threatened with loss of utilities: No Health Literacy: Not on file Allergies: Allergies Allergen Reactions Demerol [Meperidine] Anaphylaxis Aspirin Unknown Avelox [Moxifloxacin] Other Had to bring me back. Had to pump my heart Cefdinir Unknown Nalbuphine Itching and Unknown Other Reaction(s): Itching Promethazine Unknown Other Reaction(s): Unknown Reaction Migslxe-Zek-Qpt Reductase Inhibitors Unknown Sulfa (Sulfonamide Antibiotics) Itching [...] daily for 240 doses. 120 tablet 3 vantmtoiyn-dgokwgkz-pldwrrvpzu (Breztri Aerosphere) 160-9-4.8 mcg/actuation HFA aerosol inhaler [...] Value Ventricular Rate 61 Atrial Rate 61 AL Interval 154 QRS DURATION 84 QT Interval 440 QTC CALCULATION(BAZETT) 442 P [place] -11 R-[place] -12 T Wave [place] 36 Impression Sinus rhythm with Premature ventricular [...] Ct meds. Dusty Weaver MD Cardiac Electrophysiology [facility] documented in this encounter Plan of Treatment DateTypeDepartmentCare Team (Latest Contact Info)Yzaerliwzvs05/05/2026 1:20 PM ESTOffice Visit [facility] at [facility] [address] [place] [address] Bhavesh Fulton MD [address] [place] [address] NamePriorityAssociated DiagnosesDate/TimeLOOP INSERTION NSVT (nonsustained ventricular tachycardia) (CMS/HCC) documented as of this encounter Visit Diagnoses Diagnosis Paroxysmal atrial fibrillation (CMS/HCC)- Primary Atrial fibrillation NSVT (nonsustained ventricular tachycardia) (CMS/HCC) documented in this encounter Care Teams Team MemberRelationshipSpecialtyStart [place] [address] [place], [place] [address] [place] [address] PCP - Eqvuapp05/8/24documented as of this encounter
--- OUTSIDE RECORDS SUMMARY | 2025-02-15 13:07 | XMS_ITS | Encounter Summary ---
Author Organization [facility] Address [address] [place] [address] Care Team Providers Care [employer] Team Member Name Role Phone Velasquez Langley MD Primary Care Provider [phone] Encounter Details DateTypeDepartmentCare Team (Latest Contact Info)Hrqeennfxgb51/15/2025Orders Only [facility] [address] [place] [address] Kristie Chow MA Shortness of breath (Primary Dx) Social History Tobacco UseTypesPacks/DayYears UsedDateSmoking Tobacco: FormerCigarettes Smokeless Tobacco: NeverAlcohol UseStandard Drinks/WeekCommentsNever0 (1 standard drink = 0.6 oz pure alcohol)[facility] UtilitiesAnswerDate RecordedIn the past 12 months has the [employer], gas, oil, or water [employer] threatened to shut off services in your [...] times a week01/27/2024How often do you attend adventism or bahai services?Never01/27/2024o you belong to any clubs or organizations such as adventism groups, unions, fraternal or athletic groups, or school groups?No01/27/2024How often do you attend meetings of the clubs or organizations you belong to?Never01/27/2024re you , , , , never , or living with a partner?Fllqypx8701/27/2024 AUDIT-CAnswerDate RecordedQ1: How often do you have [...] Health Questionnaire-2 Score0 05/11/2024[facility] [place] of Occupational Health - Occupational Stress QuestionnaireAnswerDate RecordedDo you feel stress - tense, restless, nervous, or anxious, or unable to sleep at night because yourmind is troubled all the time - these days?To some ffabpz2801/27/2024[place] Safety & EnvironmentAnswerDate RecordedFear of Current or [...] living in a intermediate (including now)?No08/26/2024Hunger Vital Sign AnswerDate RecordedWithin the past 12 months, you worried that your food would run out before you got the money to buymore.Never true08/26/2024Ran Out of Food in the Last YearNot on file08/26/2024CommentsNoSex and Gender InformationValueDate RecordedSex Assigned at YthtsRddwqi11/03/2024 11:08 AM EST Legal IfjBzbjhf22/29/2022 11:01 PM EDTGender WvdvrkrpTkgxwp72/03/2024 11:08 AM ESTSexual OrientationHeterosexual or Fpnbwhyj48/03/2024 11:08 AM ESTdocumented as of this encounter Plan of Treatment DateTypeDepartmentCare Team (Latest Contact Info)Qzcskkanwns10/05/2026 1:20 PM ESTOffice Visit [facility] [address] [place] [address] Bhavesh Fulton MD [address] [place] [address] NameTypePriorityAssociated DiagnosesOrder SchedulePulmonary function testing Spirometry; Body Box (lung volumes, airway resistance, and SVC), DLCOPFTRoutine Shortness of breath Expected: 02/07/2025 (Approximate), Expires: 02/07/2026Pulmonary function testing 6 Minute WalkPFTRoutine Shortness of breath Expected: 02/07/2025 (Approximate), Expires: 02/07/2026NamePriorityAssociated DiagnosesDate/TimeLOOP INSERTION NSVT (nonsustained ventricular tachycardia) ([facility]) documented as of this encounter Visit Diagnoses Diagnosis Shortness of breath- Primary documented in this encounter Care Teams Team MemberRelationshipSpecialtyStart DateEnd Velasquez Langley MD [address] [facility] [address] [address] PCP - Vhnuwwn03/8/24documented as of this encounter
--- OUTSIDE RECORDS SUMMARY | 2025-02-15 13:07 | XMS_ITS | Clinical Summary ---
Author Organization [facility] Address [address] [place] [address] Care Team Providers Care Stain Applicator Name Role Phone Velasquez Langley MD Primary Care Provider [phone] Allergies Active AllergyReactionsCriticalityNoted CqngAmflbsmyBvltvxcYnauzsy35/29/2025 EgllnzowtfrmJycod18/11/2024 Had to bring me back. Had to pump my heart LrtyoixeFojgezl57/22/4204EumlmslgfwGjsvuwstptwAcpw88/08/2024NalbuphineItching, Wqivaef5806/27/2017 Other Reaction(s): Itching YnereuyfznkbYyceaqx51/04/2018 Other Reaction(s): Unknown Reaction Rdjnrvn-Xil-Ybm Reductase YmwsrlbbsqGetvjgm68/04/2018Sulfa (Sulfonamide Antibiotics)Itching,Kxolssf7806/27/2017 Other Reaction(s): Itching MviapfOkvzejy88/29/2024 Medications MedicationSigDispense QuantityRefillsLast FilledStart DateEnd DateStatus albuterol [...] 40 mg by mouth in the morning.Active rxrlhgwafa-oxxmgtlf-oxqchifjlo (Breztri Aerosphere) 160-9-4.8 mcg/actuation HFA aerosol inhaler every 12 (twelve) hours.5Active isosorbide mononitrate ER (Imdur) 30 mg 24 hr tablet Take 30 mg by mouth in the morning. Do not crush or chew.02/07/2025Discontinued carvedilol (Coreg) 12.5 mg tablet Take 12.5 mg by mouth with breakfast and with evening meal.02/07/2025 Discontinued Active Problems ProblemNoted DateDiagnosed DateAbsence of pulse in single asdwzezdv45/16/2025t risk for falls02/07/2025enign mammary ddquftrlp38/15/2025enign neoplasm of cerebral /15/5020Hihstosyibevuucs08/15/2025ervical aujcpa3502/07/2025 Haarhcwhdatt48/15/2025ramps of lower nbsdvaueu66/15/7023Fzmcuwnu99/15/2025 Disorder of bone02/07/2025Diverticular cxpclnw4002/07/20254673Qkhwyyuwwielcv24/15/2025 Drug-induced fevyvwmv84/15/2025Easy qucwbqcc77/15/2025Frequency of micturition 02/07/20258892Edukpuxfnh47/15/2412Kzsvtddtexxkuva30/15/2025Gastroesophageal reflux autxcwu8702/07/20259302Lguozmpixpp01/15/2972Oiqiv28/15/2025Localized edema02/07/2025 Muscle yyozmkfu05/15/7207Bqkpw06/15/3305Qekhufkgmp52/15/2025Other injury of muscle, fascia and tendon of lower back, initial zhxwofbna79/15/2025Overweight 02/07/2025Pain in right knee02/07/2025Plantar zakehalsx38/15/2025Postmenopausal state02/07/2025Pruritic zmhxojmhy60/15/2025Right upper quadrant pain02/07/2025 Spasm02/07/2025Stage 3a chronic kidney yzsrmus7602/07/2025Near pvfjxzx3502/07/2025 Tinea fmczvgwu26/15/2025Type 2 diabetes mellitus with diabetic neuropathy, tooinrwjskp71/15/2025Varicose veins of other specified sites02/07/2025Vertigo 02/07/20257780Fgwgzd88/15/2025Gallbladder colic08/27/2024hronic diastolic heart nbomowv7702/02/2024Mesenteric artery lfmonscm27/09/2024AA (abdominal aortic aneurysm) without ymbjofx9401/27/2024oronary artery disease involving three affiliated coronary artery of three affiliated heart without angina aasvqeth82/06/2024Osteoarthritis 12/05/2023iabetes /11/2024History of urinary tract infection 12/05/2023ladder outlet nohyijlsvcx29/11/2024ostinfective urethral stricture in eedaez5212/05/2023cute intractable rieizioz49/11/3636Ifeive95/11/2024Bladder bxwpqcusb42/11/2024hronic obstructive pulmonary ezgwyyn4012/05/2023ysuria 12/05/2023Female imxmvytcu56/11/2024etention of urine12/05/2023Flank pain 12/05/2023Gross lzupacrtn49/11/2024ure pczesojdacvikwjubkwg28/11/2024Other specified postprocedural yavjbg1312/05/2023ostoperative pain of extremity 12/05/2023ight hand pain12/05/2023Essential rpnzrdagojow40/11/2024Stress incontinence of urine12/05/2023Urge incontinence of urine12/05/2023OPD without fgcnvpkzbink61/11/2024trial amqydbbtgrtc34/11/2024NSVT (nonsustained ventricular tachycardia)12/02/2023yspnea on qmrkhdau27/08/2024Moderate fqxzwemestly17/21/9417Qmferbeggmq08/19/2020 Overview (12/05/2023): Replacement after MRI Aneurysm of infrarenal abdominal aorta10/09/2019 Resolved Problems ProblemNoted DateDiagnosed DateResolved DateAcute heart wabwlaa7502/07/2025 02/08/2025V-tachV-tach/enign hypertensive heart disease without congestive heart pnwshio57 Unstable mgczpp70cute respiratory failure with hypoxia Right renal artery njthrjfi91Secondary fxdzbbyplkux86HyperlipemiaHypertensive qwxdiwy75Palpitation Encounters DateTypeDepartmentCare KlooTrrlfppnydc81/18/2025Telephone [facility] [address] [facility] [place] [phone] Renetta Lainez MA 02/08/2025 1:45 PM ESTOffice Visit [facility] [address] [facility] [place] [address] Dusty Weaver MD Paroxysmal atrial fibrillation (CMS/HCC) (Primary Dx); NSVT (nonsustained ventricular tachycardia) (CMS/HCC)02/08/2025Orders Only [facility] [address] [facility] [place] [phone] Kristie Chow MA NSVT (nonsustained ventricular tachycardia) (CMS/HCC) (Primary Dx)02/07/2025 1:20 PM ESTOffice Visit [facility] [address] [facility] [place] [address] Bhavesh Fulton MD Near syncope (Primary Dx); Vertigo; Chronic diastolic heart failure (CMS/HCC); Coronary artery disease involving three affiliated coronary artery of three affiliated heart without angina pectoris; Paroxysmal atrial fibrillation (CMS/HCC); NSVT (nonsustained ventricular tachycardia) (CMS/HCC); Absence of pulse in single extremity; Abdominal aortic aneurysm (AAA) without rupture, unspecified part; Mesenteric artery stenosis; Essential hypertension; Pure hypercholesterolemia; Stage 3a chronic kidney disease (CMS/HCC)02/07/2025Orders Only [facility] [address] [facility] [place] [address] Kristie Chow MA Shortness of breath (Primary Dx)12/29/2024Orders Only [facility] [address] [facility] [place] [phone] Renetta Lainez MA Paroxysmal atrial fibrillation (CMS/HCC) (Primary Dx)12/27/2024Refill [facility] [address] [facility] [place] [address] Kristie Chow MA Mesenteric artery kctuwaqc38/29/2025 2:00 PM EDTOffice Visit [facility] [address] [place] [address] Bhavesh Fulton MD Chronic diastolic heart failure (CMS/HCC) (Primary Dx); Coronary artery disease involving three affiliated coronary artery of three affiliated heart without angina pectoris; Paroxysmal atrial fibrillation (CMS/HCC); V-tach (CMS/HCC); Abdominal aortic aneurysm (AAA) without rupture, unspecified part; Mesenteric artery stenosis; Benign hypertensive heart disease without congestive heart failure; Pure hypercholesterolemia; Type 2 diabetes mellitus without complication, without long-term current use of insulin (CMS/HCC)12/22/2024Orders Only [facility] [address] [facility] [place] [address] Kristie Chow MA ZAVALA (dyspnea on exertion) (Primary Dx)12/15/20[address] [address] [place] [phone] Ron Crooks PA-C Mesenteric artery stenosisfrom Last 3 Months Family History RelationNameStatusCommentsFatherDeceasedMotherDeceased Social History Tobacco UseTypesPacks/DayYears UsedDateSmoking Tobacco: FormerCigarettes Smokeless Tobacco: Never Tobacco Cessation:Counseling Given: Yes Alcohol UseStandard Drinks/WeekCommentsNever0 (1 standard drink = 0.6 oz pure alcohol)[facility] UtilitiesAnswerDate RecordedIn the past 12 months has the [employer], gas, oil, or water [place] threatened to shut off services in your [...] times a week01/27/2024How often do you attend congregational or rastafarian services?Never01/27/2024o you belong to any clubs or organizations such as congregational groups, unions, fraBarburrito or athletic groups, or school groups?No 01/27/2024How often do you attend meetings of the clubs or organizations you belong to?Never01/27/2024re you , , , , never , or living with a partner?Ybmvkpt7601/27/2024UDIT-CAnswerDate RecordedQ1: How often do you have a [...] hard at all08/26/2024PHQ-2AnswerDate Recorded Patient Health Questionnaire-2 Wztkx199[facility] [place] of Occupational Health - Occupational Stress QuestionnaireAnswerDate RecordedDo you feel stress - tense, restless, nervous, or anxious, or unable to sleep at night because your mind is troubled all the time - these days?To some wlwiml9101/27/2024UT Safety & EnvironmentAnswerDate RecordedFear of Current or [...] file08/26/2024CommentsNoSex and Gender InformationValueDate RecordedSex Assigned at IkdjfHdehel85/03/2024 11:08 AM ESTLegal HzbQsyotl64/29/2022 11:01 PM EDTGender ZjlxbqhhPeiqvf86/03/2024 11:08 AM ESTSexual OrientationHeterosexual or Sabnyygs93/03/2024 11:08 AM EST Last Filed Vital Signs Vital SignReadingTime TakenCommentsBlood Fwvhmyws790/6202/08/2025 1:50 PM EST Nzavf134402/08/2025 1:50 PM PQTRgcckdocbym08.2 ??C (98.9 ??F)08/27/2024 8:00 AM EDTRespiratory Gixz966908/27/2024 11:00 AM EDTOxygen Ayphijqvve88%02/08/2025 1:50 PM ESTInhaled Oxygen Concentration--Xwusqa58.5 kg (162 lb)02/08/2025 1:42 PM EST Pcubfq478 cm (5' 3 )02/08/2025 1:42 PM ESTBody Mass Index28.7104/11/2024 1:42 PM EST Plan of Treatment DateTypeDepartmentCare Team (Latest Contact Info)Siwqgjgkfqk31/06/2025 1:20 PM ESTOffice Visit [facility] [address] [place] [address] Bhavesh Fulton MD [address] MS:[address] [place] [address] NamePriorityAssociated DiagnosesDate/TimeLOOP INSERTION NSVT (nonsustained ventricular tachycardia) ([facility]) Health MaintenanceDue DateLast DoneCommentsMedicare Annual Wellness (AWV) 4Diabetes: Retinopathy Quvuluchn46/30/1954dult Dtnllzv2805/23/1965Zoster Vaccines (1 of 2)05/23/1993Pneumococcal Vaccine: 50+ Years (2 of 2 - PCV) /Diabetes: Hemoglobin A1C510/OVID-19 Vaccine (2024- season)/, 05/19/2020, 04/21/2020, Additional history existsDepression Sihlttrdq86/Fall Risk Screening /05/2024Influenza SqtlaklZualeixco22/22/2025, 12/08/2023, 12/25/2022, Additional history existsHIB VaccinesAged OutNo [...] IdentifierShelf Expiration DateModel / Serial / LotHeli-Fx Tape Calender And Endoanchor Cassette Implanted:Qty: 1 on 01/28/2024 by [facility]A: [id number]/SA-85 / / [id number]:7 IMPLANTED, 10 COME IN A BOXEndurant Stent Graft System Implanted:Qty: 1 on 01/28/2024 by [facility]ep [facility]GraftN/A: [id number] / [id number] / Endurant Ii Stent Graft Implanted:Qty: 1 on 01/28/2024 by Sand[facility]pe Wang [facility]/A: [id number]/07/[id number] / [id number] / Description:LEFT COMMON ILIACEndurant Ii Stent Graft Implanted:Qty: 1 on 01/28/2024 by Sand[facility]ep [facility]GraftN/A: [id number] / [id number] / Description:RIGHT COMMON ILIACStent,Express2,Bili,4m92p393 - [id number] Implanted:Qty: 1 on 02/05/2024 by Gilberto Whitten MD at [facility]tentN/A: AbdomenBoston [id number]/05/2025 [id number] / / [id number],Expr Bili,Sd,6.7p60d720 - [id number] Implanted:Qty: 1 on 02/05/2024 by Gilberto Whitten MD at [facility]entN/A: AbdomenBOSTON SCIENTIFIC/[id number] / / [id number] Procedures Procedure NamePriorityDate/TimeAssociated DiagnosisCommentsHEMOGLOBIN U8IHsg-Hl 12/05/2023 3:35 AM EDT from Last 3 Months or Most Recently Relevant to Health Maintenance Results * Hemoglobin A1c (12/05/2023 3:35 AM EDT)ComponentValueRef RangeTest Method Analysis TimePerformed AtPathologist SignatureHemoglobin A1C5.34.0 - 6.0 % 12/05/2023 10:16 AM [facility])Estimated Average Ikwmxlr491 mg/dL12/05/2023 10:16 AM [facility] ([facility])Specimen (Source) Anatomical Location / LateralityCollection Method / VolumeCollection Time Received TimeBloodVenous blood specimen / UnknownArterial Line / Unknown 12/05/2023 3:35 AM EDT1 4:04 AM EDT Narrative Authorizing ProviderResult TypeResult StatusRobertoi Rehan HERNANDEZ BLOOD ORDERABLES Final ResultPerforming OrganizationAddressCity/State/ZIP CodePhone Number [facility] [address] [place], [place] [id number] from Last 3 Months or Most Recently Relevant to Health Maintenance Insurance Advance Directives * Full Code (Latest Code Status on File) Date ActivatedDate InactivatedComments08/26/2024 5:06 PM08/27/2024 2:13 PM * Full Code Date ActivatedDate HcvpblcuqixQoegwdgf85/9/2024 6:08 AM02/12/2024 1:43 PM * Full Code Date ActivatedDate ErzvekoczhsOnewciaf89/3/2024 5:00 PM01/31/2024 2:34 PM * Full Code Date ActivatedDate FlrobwcufauFcfmbfez32/11/2024 2:56 AM12/06/2023 2:19 PM Care Teams Team MemberRelationshipSpecialtyStart DateEnd Velasquez Langley MD [address] [place] [place] [address] PCP - Yxhlztx97/8/24
--- OUTSIDE RECORDS SUMMARY | 2025-02-15 13:07 | XMS_ITS | Clinical Summary ---
Author Organization [facility] Address [address], [address] [place] [address] Care Team Providers Care Nursing Care Attendant Name Role Phone Velasquez Langley MD Primary Care Provider [phone] Allergies Active AllergyReactionsCriticalityNoted DateCommentsMoxifloxacinAnaphylaxisHigh 06/27/20174745Uvpldriswqrsa15/04/1381GdrxkqdibiXgtxviaentxBnlh68/04/2018Nalbuphine 06/27/20172085Wgfrsjilrrbx96/04/6285Drfkmuk50/04/2018Sulfa Qcycqkozbxn71/04/2018 Adhesive Tape06/27/2017 Medications MedicationSigDispense QuantityRefillsLast FilledStart DateEnd [...] tablet 5010/15/2019Active Active Problems ProblemNoted DateDiagnosed DateModerate dascutnulmuq48/21/2020Right renal artery xyzqvdxl28/19/2020Secondary akovqlkomhpr62/19/5408Gdjuvrudhzj09/19/2020 Overview (10/13/2019): Replacement after MRI Aneurysm of infrarenal abdominal aorta10/09/20199862Dmoonqlevwl61/05/2018 Hypertensive migrrdt0806/28/20172559Oluyhsyqqile96/05/2018Acute intractable headache Social History Tobacco UseTypesPacks/DayYears UsedDateSmoking Tobacco: NeverSmokeless Tobacco: NeverAlcohol UseStandard Drinks/WeekCommentsNo0 (1 standard drink = 0.6 oz pure alcohol)CommentsNoSex and Gender InformationValueDate RecordedSex Assigned at BirthNot on fileLegal IjxGlskuw88/04/2018 9:20 PM EDTGender Identity Not on fileSexual OrientationNot on file Last Filed Vital Signs Vital SignReadingTime TakenCommentsBlood Iicwdboi450/64010/16/2019 3:45 PM EDT Nnnxy604310/16/2019 8:25 AM UJYTnioccjumhn09.7 ??C (98 ??F)10/16/2019 8:25 AM EDT Respiratory Rndf917410/16/2019 8:25 AM EDTOxygen Gxhygvhtzv29%10/16/2019 8:25 AM EDTInhaled Oxygen Concentration--Pjafkg02.4 kg (148 lb 9.4 oz)10/16/2019 6:15 AM PLMDxyzor751.6 cm (5' 4 )10/15/2019 3:22 PM EDTBody [...] MemberRelationshipSpecialtyStart DateEnd Date Velasquez Langley MD [address] [place] [address] PCP - GeneralFamily Medicine06/27/17
--- OUTSIDE RECORDS SUMMARY | 2025-02-15 13:07 | XMS_ITS | Clinical Summary ---
Author Organization [facility] Address [address] [place] [address] Care Team Providers Care Coiled Tubing Supervisor Name Role Phone Velasquez Langley MD Primary Care Provider [phone] Allergies Active AllergyReactionsCriticalityNoted DateCommentsAtorvastatinUnknown 01/15/20236037MzcpltlfOpmtbbx90/22/5935XsgccoitmuffaObcprnj79/04/2018 Other Reaction(s): Vomiting DwcmdscayhOaozqtogzteQbmk90/04/2018 Other Reaction(s): Anaphylaxis, Unknown Meperidine GeuAiamygm19/22/2023MoxifloxacinAnaphylaxis,MzkfqhxVvbm94/04/2018 Other Reaction(s): Other Had to bring me back. Had to pump my heart SlhuatrvgfPznntuo34/04/2018 Other Reaction(s): Itching Promethazine Hcl4507RepruksxjovbVkojsuz12/04/2018 Other Reaction(s): Unknown Reaction NonsdsjSfnuhgf29/04/2018Sulfa RyugklgzltkEkwopap25/04/2018 Other Reaction(s): Itching Wound Dressing LuucvxdlCerzjzl24/30/2023 Medications MedicationSigDispense QuantityRefillsLast FilledStart DateEnd DateStatus memantine [...] InformationValueDate RecordedSex Assigned at BirthNot on fileLegal AkaTkackj24/15/2023 7:09 PM EDTGender IdentityNot on fileSexual OrientationNot on file Last Filed Vital Signs Vital SignReadingTime TakenCommentsBlood Pressure--Pulse--Temperature-- Respiratory Rate--Oxygen Saturation--Inhaled Oxygen Concentration--Cievhn77.1 kg (159 lb)01/06/2023 10:45 AM BLNSgicao659 cm (5' 3 )01/06/2023 10:45 AM ESTBody Mass Index28.17103/08/2022 10:45 AM EST Plan of Treatment Health MaintenanceDue DateLast DoneCommentsPneumococcal Vaccine: 65+ Years (2 of 2 - PCV)/Influenza Vaccine (#1)/06/2019 Insurance Care Teams Team MemberRelationshipSpecialtyStart Date [facility]gkg[facility]g96/13/[facility]
--- OUTSIDE RECORDS SUMMARY | 2025-02-15 13:07 | XMS_ITS | Encounter Summary ---
Author Organization [facility] Address [address] [place] [address] Care Team Providers Care Bartacker Name Role Phone Velasquez Langley MD Primary Care Provider [phone] Encounter Details DateTypeDepartmentCare Team (Latest Contact Info)Hddasluduxq17/16/2025Orders Only [facility] Heart at [facility] [address] [place] [address] Kristie Chow MA NSVT (nonsustained ventricular tachycardia) (CMS/HCC) (Primary Dx) Social History Tobacco UseTypesPacks/DayYears UsedDateSmoking Tobacco: FormerCigarettes Smokeless Tobacco: NeverAlcohol UseStandard Drinks/WeekCommentsNever0 (1 standard drink = 0.6 oz pure alcohol)[facility] UtilitiesAnswerDate RecordedIn the past 12 months has the [employer], gas, oil, or water [employer] threatened to shut off services in your [...] week01/27/2024How often do you attend jewish or yarsanism services?Never01/27/2024o you belong to any clubs or organizations such as jewish groups, unions, fraternal or athletic groups, or school groups?No01/27/2024How often do you attend meetings of the clubs or organizations you belong to?Never01/27/2024re you , , , , never , or living with a partner?Vmtucsh5101/27/2024 AUDIT-CAnswerDate RecordedQ1: How often do you have [...] at all 08/26/2024PHQ-2AnswerDate RecordedPatient Health Questionnaire-2 Score0 05/11/2024[facility] [place] of Occup[facility] Health - Occupational Stress QuestionnaireAnswerDate RecordedDo you feel stress - tense, restless, nervous, or anxious, or unable to sleep at night because yourmind is troubled all the time - these days?To some gcxvtp9201/27/2024UT Safety & EnvironmentAnswerDate RecordedFear of Current or [...] file08/26/2024CommentsNoSex and Gender InformationValueDate RecordedSex Assigned at DntpwOvhbsa11/03/2024 11:08 AM EST Legal CpnGytvex14/29/2022 11:01 PM EDTGender NmmgngczOwbsjp87/03/2024 11:08 AM ESTSexual OrientationHeterosexual or Mjddvdgd55/03/2024 11:08 AM ESTdocumented as of this encounter Plan of Treatment DateTypeDepartmentCare Team (Latest Contact Info)Kepygovxtvr42/05/2026 1:20 PM ESTOffice Visit [facility] at [facility] [address] [place] [address] Bhavesh Fulton MD [address] [place] [address] NamePriorityAssociated DiagnosesDate/TimeLOOP INSERTION NSVT (nonsustained ventricular tachycardia) (CMS/HCC) documented as of this encounter Visit Diagnoses Diagnosis NSVT (nonsustained ventricular tachycardia) (CMS/HCC)- Primary documented in this encounter Care Teams Team MemberRelationshipSpecialtyStart DateEnd Velasquez Langley MD [address] [facility] [address] [address] PCP - Robuwbs16/8/24documented as of this encounter
--- OUTSIDE RECORDS SUMMARY | 2025-02-15 13:07 | XMS_ITS | Clinical Summary ---
Author Organization [facility] Address [address] [place] [address] Care Team Providers Care Sales Program Coordinator Name Role Phone Unavailable Primary Care Provider Unavailabl e Social History Tobacco UseTypesPacks/DayYears UsedDateSmoking Tobacco: Never Assessed CommentsUnknownSex and Gender InformationValueDate RecordedSex Assigned at Not on fileLegal ZmdPbzpau56/02/2012 9:24 AM ESTGender IdentityNot on fileSexual OrientationNot on file Plan of Treatment Not on file
--- OUTSIDE RECORDS SUMMARY | 2025-02-15 13:07 | XMS_ITS | Encounter Summary ---
Author Organization [facility] Address [address] [place] [address] Care Team Providers Care Cop Name Role Phone Velasquez Langley MD Primary Care Provider [phone] Encounter Details DateTypeDepartmentCare Team (Latest Contact Info)Srfxugsdvks16/18/2025Telephone [facility] Heart at [facility] [address] [place] [phone] Renetta Lainez MA Social History Tobacco UseTypesPacks/DayYears UsedDateSmoking Tobacco: FormerCigarettes Smokeless Tobacco: NeverAlcohol UseStandard Drinks/WeekCommentsNever0 (1 standard drink = 0.6 oz pure alcohol)[facility] UtilitiesAnswerDate RecordedIn the past 12 months has the [employer], gas, oil, or water [employer] threatened to shut off services in your [...] week01/27/2024How often do you attend adventism or advent services?Never01/27/2024o you belong to any clubs or organizations such as adventism groups, unions, fraternal or athletic groups, or school groups?No01/27/2024How often do you attend meetings of the clubs or organizations you belong to?Never01/27/2024re you , , , , never , or living with a partner?Zvioiki9201/27/2024 AUDIT-CAnswerDate RecordedQ1: How often do you have [...] 08/26/2024PHQ-2AnswerDate RecordedPatient Health Questionnaire-2 Score0 05/11/2024[facility] [place] of Occupational Health - Occupational Stress QuestionnaireAnswerDate RecordedDo you feel stress - tense, restless, nervous, or anxious, or unable to sleep at night because yourmind is troubled all the time - these days?To some ogjyii1701/27/2024UT Safety & EnvironmentAnswerDate RecordedFear of Current or [...] homeless or living in a correction (including now)?No08/26/2024Hunger Vital Sign AnswerDate RecordedWithin the past 12 months, you worried that your food would run out before you got the money to buymore.Never true08/26/2024Ran Out of Food in the Last YearNot on file08/26/2024CommentsNoSex and Gender InformationValueDate RecordedSex Assigned at QykfyShwoux51/03/2024 11:08 AM EST Legal HqhLqrpor58/29/2022 11:01 PM EDTGender LaikjwhuTgchrf02/03/2024 11:08 AM ESTSexual OrientationHeterosexual or Zvfhqvxa92/03/2024 11:08 AM ESTdocumented as of this encounter Miscellaneous Notes * Telephone Encounter - Renetta Lainez MA - 02/10/2025 12:05 PM EST [facility] lab called a critical BNP result of 5497. Last BNP in Dec 2024 was 7329. FYI documented in this encounter Plan of Treatment DateTypeDepartmentCare Team (Latest Contact Info)Cfnnmemsmdq38/05/2026 1:20 PM ESTOffice Visit [facility] Heart at [facility] [address] [place] [address] Bhavesh Fulton MD [address] [place] [address] NamePriorityAssociated DiagnosesDate/TimeLOOP INSERTION NSVT (nonsustained ventricular tachycardia) (CMS/HCC) documented as of this encounter Visit Diagnoses Not on filedocumented in this encounter Care Teams Team MemberRelationshipSpecialtyStart DateEnd Date Velasquez Langley MD [address] [facility] [address] [address] [facility] - Ldtebft32/8/24documented as of this encounter
--- OUTSIDE RECORDS SUMMARY | 2025-02-15 13:07 | XMS_ITS | Patient Health Record ---
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 Name Role Phone Enio Langley Primary Care Provider BrentonUsman [phone] Allergies Allergen (clinical drug ingredient) Drug/Non Drug [...] Interpretation: Performing Lab: Notes/Report: COLOR yellow CLARITYclearGLUCOSEnBILIRUBINnKETONEnSPECIFIC GRAVITY1.088AZWUSgAF3GTYPGOAsvlkp UROBILINOGENnNITRITEnLEUKOCYTE ESTERASE++UA DIP NONAUTO WO MICRO (89760) - IN OFFICE Reviewed date:08/16/2024 07:19:28 PM Interpretation: Performing Lab: Notes/Report: COLORstrawCLARITYclearGLUCOSEnBILIRUBINnKETONEnSPECIFIC GRAVITY1.996KYTFYlPX4 PROTEINtraceUROBILINOGENnNITRITEnLEUKOCYTE ESTERASE++PROF 14(COMP METB) Reviewed date:08/16/2024 07:19:28 PM Interpretation: Performing Lab: Notes/Report: [facility] ,Itvwkd151940-266 mmol/LPotassium4.53.5-5.1 mmol/DOsecwgos86884-962 mmol/LCarbon Jnwaemj34.421.0-32.0 mmol/LAnion Gap12.1Qqwcqyx59446-068 mg/dLBlood Urea Xhrghqbz54.07.0-18.0 mg/dLCreatinine1.480.55-1.02 mg/dLEstimated GFR ( Napjvyp76>=60 mL/min/1.73m 2Estimated GFR (Non- Ame34>=60 mL/min/1.73m 2 BUN Creatinine Ratio30.6Uzzqxzf0.88.5-10.1 mg/dLBilirubin Total0.40.2-1.0 mg/dL Aspartate Amino Michmydpyyr0507-84 U/LAlanine Pemuovyuxxxbcfox2235-37 U/L Alkaline Ayhyhwonoet40736-289 U/LTotal Protein6.26.4-8.2 g/dLAlbumin Level3.1 3.4-5.0 g/dLGlobulin3.1Albumin Globulin Ratio1.0Performing Lab:see noteML - [facility] LBUA DIP NONAUTO WO MICRO (83427) - IN OFFICE Reviewed date:10/20/2024 11:06:25 AM Interpretation: Performing Lab: Notes/Report: COLORYellowCLARITYClearGLUCOSENegBILIRUBINNegKETONENegSPECIFIC GRAVITY1.010BLOOD IhyTX0ECYBLWU+UROBILINOGENNegNITRITENegLEUKOCYTE ESTERASE++CBC AUTO DIFF Reviewed date:02/16/2024 07:54:36 PM Interpretation: Performing Lab: Notes/Report: [facility] ,White Blood Count6.64.0-11.0 10 3/uLRed Blood Count2.994.20-5.40 10 6/uL Hemoglobin8.412.0-16.0 g/lOVpjnzsbmyc49.336.0-48.0 %Mean Corpuscular Oypvoe56.3 81.0-99.0 fLMean Corpuscular Shocnwxeam73.126.7-34.0 pgMean Corpuscular HGB Conc 30.829.9-35.2 g/dLRed Cell Distribution Width16.611.0-15.0 %Platelet Cshak185 150-450 10 3/uLMean Platelet Qrjmpq77.39.5-13.5 fLNeutrophils Percent Auto65.3 43.0-75.0 %Lymphocytes Percent Auto16.820.5-60.0 %Monocytes Percent Auto11.41.7- 12.0 %Eosinophils Percent Auto4.40.9-7.0 %Basophils Percent Auto0.90.2-2.0 % Immature Granulocytes Pct Auto1.20.0-0.5 %Neutrophils Absolute Auto4.31.4-6.5 10 3/uLLymphocytes Absolute Auto1.11.2-3.8 10 3/uLMonocytes Absolute Auto0.80.3-0.8 10 3/uLEosinophils Absolute Auto0.30.0-0.7 10 3/uLBasophils Absolute Auto0.10.0- 0.1 10 3/uLImmature Granulocytes Abs Auto0.080.00-0.03 10 3/uLPerforming Lab:see noteML - [facility] LBBNP Reviewed date:02/29/2024 05:39:20 PM Interpretation: Performing Lab: Notes/Report: [facility] ,NT Pro B Type Natriuretic Cmuh2113.0<=1800.0 pg/mLRESULTS CALLED TO ROSA ANDRADE RN at 1956Performing Lab:see noteML - [facility] LBLIPASE Reviewed date:02/29/2024 05:39:20 PM Interpretation: Performing Lab: Notes/Report: [facility] ,Gzsrzb37.016.0-77.0 U/LPerforming Lab:see noteML - [facility] LBPROF 14(COMP METB) Reviewed date:02/29/2024 05:39:20 PM Interpretation: Performing Lab: Notes/Report: [facility] ,Afzkmc025474-468 mmol/LPotassium4.33.5-5.1 mmol/KHvxlznew83153-016 mmol/LCarbon Zqdgmxk04.421.0-32.0 mmol/LAnion Gap11.4Ymucagr06282-291 mg/dLBlood Urea Rvejrgjf68.07.0-18.0 mg/dLCreatinine1.890.55-1.02 mg/dLEstimated GFR ( Didunem87>=60 mL/min/1.73m 2Estimated GFR (Non- Ame26>=60 mL/min/1.73m 2 BUN Creatinine Ratio13.9Anlytep3.98.5-10.1 mg/dLBilirubin Total0.40.2-1.0 mg/dL Aspartate Amino Rvmtrxzlxuv2710-17 U/LAlanine Imigueapkwwcwigx2848-90 U/L Alkaline Ftglrdyopfj79655-908 U/LTotal Protein6.26.4-8.2 g/dLAlbumin Level2.9 3.4-5.0 g/dLGlobulin3.3Albumin Globulin Ratio0.9Performing Lab:see noteML - [facility] LBTroponin I High Sensitivity Reviewed date:02/29/2024 05:39:20 PM Interpretation: Performing Lab: Notes/Report: [facility] ,Troponin I High Sensitivity8.44.0-51.3 pg/mL CUT-OFF POINTS HAVE BEEN ESTABLISHED BASED ON THE FOURTH UNIVERSAL DEFINITION OF MYOCARDIAL INFARCTION. THE UPPER REFERENCE LIMIT (URL) OF TROPONIN, DEFINED THE 99TH PERCENTILE OF cTnI DISTRIBUTION IN A REFERENCE POPULATION, HAS BEEN CONFIRMED THE DECISION THRESHOLD FOR WI DIAGNOSIS. 99TH PERCENTILE = 51.4 PG/ML NOTE: HIGH-SENSITIVITY TROPONIN ASSAY IS NOT INTENDED TO BE USED IN ISOLATION BUT SHOULD BE INTERPRETED IN CONJUNCTION WITH OTHER DIAGNOSTIC AND CLINICAL INFORMATION. Performing Lab:see noteML - [facility] LBCT chest wo con Reviewed date:02/29/2024 05:39:19 PM Interpretation: Performing Lab: Notes/Report: Source Facility: [facility]-[address] [place] [address] [place] [address] CT Scan Report Signed Patient: ZACHARY MAYNARD MR#: [id number] : 1945 Acct:[id number] Age/Sex: 78 / F ADM Date: 02/25/24 Loc: ER Attending Dr: Ordering Physician: Valentina Grechny Date of Service: 02/25/24 Procedure(s): CT chest wo con Accession Number(s): [id number] cc: Adina Langley M.D. [address] [address] Patient Name: ZACHARY MAYNARD MRN: [id number]:[id number] date: 1945 Sex: F Assigned Patient Location: ER Current Patient Location: ER Accession/Order Number: [id number] Exam Date: 02/25/2024 19:38 Report Date: 02/25/2024 [...] M.D. Signed By: 02/25/242010 DD/ 07 TD/TT: Director Of Accounts Receivable:CT abdomen pelvis wo con Reviewed date:02/29/2024 05:39:20 PM Interpretation: Performing Lab: Notes/Report: Source Facility: [place] [address] CT Scan Report Signed Patient: ZACHARY MAYNARD MR#: [id number] : 1945 Acct:[id number] Age/Sex: 78 / F ADM Date: 02/25/24 Loc: ER Attending Dr: Ordering Physician: Valentina Guzman Date of Service: 02/25/24 Procedure(s): CT abdomen pelvis wo con Accession Number(s): [id number] cc: Adina Langley M.D. [place] [address] Patient Name: ZACHARY MAYNARD MRN: TBH:[id number] date: 1945 Sex: F Assigned Patient Location: ER Current Patient Location: ER Accession/Order Number: [id number] Exam Date: 02/25/2024 19:38 Report Date: 02/25/2024 [...] M.D. Signed By: 02/25/242010 DD/ 07 TD/TT: Director Of Accounts Receivable:XR wrist LT min 3V Reviewed date:04/04/2024 11:16:15 AM Interpretation: Performing Lab: Notes/Report: Source Facility: [place] [address] XRay Report Signed Patient: ZACHARY MAYNARD MR#: [id number] : 1945 Acct:[id number] Age/Sex: 78 / F ADM Date: 04/01/24 Loc: RAD Attending Dr: Adina Langley M.D. Ordering Physician: Adina Langley M.D. Date of Service: 04/01/24 Procedure(s): XR wrist LT min 3V Accession Number(s): [id number] cc: Adina Langley M.D. [place] [address] Patient Name: ZACHARY MAYNARD MRN: TBH:[id number] date: 1945 Sex: F Assigned Patient Location: [facility] Current Patient Location: [facility] Accession/Order Number: [id number] Exam Date: 04/01/2024 16:08 Report Date: 04/01/2024 [...] M.D. Signed By: 04/01/242153 DD/ 51 TD/TT: Director Of Accounts Receivable:HEMOGLOBIN Reviewed date:06/30/2024 01:21:43 PM Interpretation: Performing Lab: Notes/Report: [facility] ,Diwsytyxpo36.312.0-16.0 g/dLPerforming Lab:see noteML - [facility] LBFREE T3 Reviewed date:08/16/2024 07:19:28 PM Interpretation: Performing Lab: Notes/Report: [facility] ,Free T31.702.18-3.98 pg/mLPerforming Lab:see noteML - [facility] LB T4 Reviewed date:08/16/2024 07:19:28 PM Interpretation: Performing Lab: Notes/Report: [facility] ,T4 Futejnwdu49.304.80-13.90 ug/dLPerforming Lab:see noteML - [facility] LBTSH Reviewed date:08/16/2024 07:19:28 PM Interpretation: Performing Lab: Notes/Report: [facility] ,Thyroid Stimulating Hormone4.4180.358-3.740 uIU/mLPerforming Lab:see noteML - [facility] LBXR chest 2V Reviewed date:08/16/2024 06:39:10 PM Interpretation: Performing Lab: Notes/Report: Source Facility: [facility]-[address] [place] [address] [place] [address] XRay Report Signed Patient: ZACHARY MAYNARD MR#: [id number] : 1945 Acct:[id number] Age/Sex: 79 / F ADM Date: 08/16/24 Loc: LAB Attending Dr: Adina Langley M.D. Ordering Physician: Adina Langley M.D. Date of Service: 08/16/24 Procedure(s): XR chest 2V Accession Number(s): [id number] cc: Adina Langley M.D. [address] [address] Patient Name: ZACHARY MAYNARD MRN: [facility]:[id number] date: 1945 Sex: F Assigned Patient Location: LAB Current Patient Location: LAB Accession/Order Number: [id number] Exam Date: 08/16/2024 16:24 Report Date: 08/16/2024 [...] Bonds M.D. 08/16/2024 4:27 PM Dictation Location: [place] [address] Electronically authenticated by: [id number] Y Date: 08/16/2024 16:27 Dictated By: Xavier Bonds M.D. Signed By: 08/16/24 1629 DD/ 1627 TD/TT: Director Of Accounts Receivable:СВЕТЛАНА CONTEH URINE Reviewed date:08/18/2024 09:07:26 PM Interpretation: Performing Lab: Notes/Report: [facility] ,Total Protein Urine Jbmmmj93.1<=11.9 mg/dLPerforming Lab:see noteML - [facility] LBUA RANDOM W or MICROSCOPIC Reviewed date:08/18/2024 09:07:26 PM Interpretation: Performing Lab: Notes/Report: [facility] ,Color UrineLT. YELLOWYELLOWClarity UrineCLEARCLEARSpecific [place] Urine1.015 1.005-1.025pH Urine5.55.0-9.0Protein UrineNEGATIVENEG/TRACE mg/dLGlucose Urine UANEGATIVENEGATIVE mg/dLBilirubin UrineNEGATIVENEGATIVEKetones UrineNEGATIVE NEGATIVE mg/dLBlood UrineNEGATIVENEGATIVENitrite UrineNEGATIVENEGATIVE Urobilinogen Urine0.20.2-1.0 EU/dLLeukocyte Esterase UrineNEGATIVENEGATIVEWBC UrineNONE SEENNONE SEEN #/HPFRBC UrineNONE SEEN0-2 #/HPFBacteria UrineTRACENONE SEEN #/HPFMucus UrineNONE SEENNONE SEENSquamous Epithelial Cell UrineRARE NONE/RARE #/LPFCrystals Seen?None SeenNone Seen #/HPFCast Seen?NONE SEENNONE SEEN #/LPFPerforming Lab:see noteML - [facility] LBPTT Reviewed date:08/23/2024 09:16:19 PM Interpretation: Performing Lab: Notes/Report: [facility] ,Partial Thromboplastin Time27.622.3-36.2 secPerforming Lab:see noteML - [facility] LBProthrombin Time INR Reviewed date:08/23/2024 09:16:19 PM Interpretation: Performing Lab: Notes/Report: [facility] ,Prothrombin Time10.49.0-11.6 secINR0.98 DESIRED INR: 2.0-3.0 CONDITIONS NOT LISTED BELOW 2.5-3.5 FOR PROSTHETIC HEART VALVE REPLACEMENT 2.5-3.5 RECURRENT THROMBOSIS Performing Lab:see noteML - [facility] LBMRSA Screening Culture Reviewed date:08/25/2024 07:11:59 PM Interpretation: Performing Lab: Notes/Report: [facility] ,MRSA Screening CultureSee Below For Report MRSA Screening Culture MRSA Screening CultureNegative MRSA Screening Culture MRSA Screening CulturePerformed at: CB - [facility] [place] MRSA Screening Culture MRSA Screening Qhxemcm9076 [place], [place] [id number] MRSA Screening Culture MRSA Screening CultureLab Director: John Paul Don PhD, Phone: [phone] MRSA Screening Culture Performing Lab:see note LC - [facility] LB SEE REPORT - Call Center Director Id information not found for OBX-specific line producer legend CA echo doppler complete Reviewed date:09/08/2024 08:02:24 PM Interpretation: Performing Lab: Notes/Report: Source Facility: [facility]-[address] [place] [address] [place] [address] Cardiology Report Signed Patient: ZACHARY MAYNARD MR#: [id number] : 1945 Acct:[id number] Age/Sex: 79 / F ADM Date: 09/08/24 Loc: CARD Attending Dr: Adina Langley M.D. Ordering Physician: Adina Langley M.D. Date of Service: 09/08/24 Procedure(s): CA echo doppler complete Accession Number(s): [id number] cc: Adina Langley M.D. Patient Name: ZACHARY MAYNARD MR#: [id number] : 1945 Exam Date: 09/08/2024 Ordering Doctor: [...] M.D. Signed By: 09/08/241813 DD/ 12 TD/TT: Director Of Accounts Receivable:US right upper quadrant Reviewed date:09/09/2024 05:20:20 PM Interpretation: Performing Lab: Notes/Report: Source Facility: [place] [address] Ultrasound Report Signed Patient: ZACHARY MAYNARD MR#: [id number] : 1945 Acct:[id number] Age/Sex: 79 / F ADM Date: 09/09/24 Loc: US Attending Dr: Adina Langley M.D. Ordering Physician: Adina Langley M.D. Date of Service: 09/09/24 Procedure(s): US right upper quadrant Accession Number(s): [id number] cc: Adina Langley M.D. [place] [address] Patient Name: ZACHARY MAYNARD MRN: TBH:[id number] date: 1945 Sex: F Assigned Patient Location: Current Patient Location: Accession/Order Number: [id number] Exam Date: 09/09/2024 11:28 Report Date: 09/09/2024 [...] Arizmendi M.D. 09/09/2024 11:31 AM Dictation Location: [place] [address] Electronically authenticated by: [id number] Y Date: 09/09/2024 11:31 Dictated By: Sammie Arizmendi M.D. Signed By: 09/09/24 1134 DD/ 1131 TD/TT: Director Of Accounts Receivable:BNP Reviewed date:12/17/2024 03:32:32 PM Interpretation: Performing Lab: Notes/Report: [facility] ,NT Pro B Type Natriuretic Beom77044.0<=1800.0 pg/mLRESULTS CALLED TO DR FOREMAN IN ERPerforming Lab:see noteML - [facility] LBPROF 14(COMP METB) Reviewed date:12/17/2024 03:32:32 PM Interpretation: Performing Lab: Notes/Report: [facility] ,Dgzyes971284-684 mmol/LPotassium3.93.5-5.1 mmol/IQozsqaop06885-246 mmol/LCarbon Ukowwlr43.621.0-32.0 mmol/LAnion Gap15.5Omqfogf87043-002 mg/dLBlood Urea Broyugnv98.07.0-18.0 mg/dLCreatinine1.290.55-1.02 mg/dLEstimated GFR ( Nojpgcv47>=60 mL/min/1.73m 2Estimated GFR (Non- Ame40>=60 mL/min/1.73m 2 BUN Creatinine Ratio20.5Zbmwqif5.48.5-10.1 mg/dLBilirubin Total0.30.2-1.0 mg/dL Aspartate Amino Dgcmqsezqkp8695-26 U/LAlanine Shvlwquvwjaoldty1824-51 U/L Alkaline Jboenncrqcy08017-863 U/LTotal Protein6.56.4-8.2 g/dLAlbumin Level3.5 3.4-5.0 g/dLGlobulin3.0Albumin Globulin Ratio1.2Performing Lab:see noteML - [facility] LBPTT Reviewed date:12/17/2024 03:32:32 PM Interpretation: Performing Lab: Notes/Report: [facility] ,Partial Thromboplastin Time28.022.3-36.2 secPerforming Lab:see noteML - [facility] LBUA RANDOM W or MICROSCOPIC Reviewed date:12/17/2024 03:32:32 PM Interpretation: Performing Lab: Notes/Report: [facility] ,Color UrineLT. YELLOWYELLOWClarity UrineCLEARCLEARSpecific [place] Urine<=1.005 1.005-1.025pH Urine6.05.0-9.0Protein UrineNEGATIVENEG/TRACE mg/dLGlucose Urine ZA088FTZXDHMJ mg/dLBilirubin UrineNEGATIVENEGATIVEKetones UrineNEGATIVENEGATIVE mg/dLBlood UrineSMALLNEGATIVENitrite UrineNEGATIVENEGATIVEUrobilinogen Urine0.2 0.2-1.0 EU/dLLeukocyte Esterase UrineNEGATIVENEGATIVEWBC UrineNONE SEENNONE SEEN #/HPFRBC Urine0-20-2 #/HPFBacteria UrineNONE SEENNONE SEEN #/HPFMucus UrineNONE SEENNONE SEENSquamous Epithelial Cell UrineRARENONE/RARE #/LPFCrystals Seen? None SeenNone Seen #/HPFCast Seen?NONE SEENNONE SEEN #/LPFPerforming Lab:see noteML - [facility] LBProthrombin Time INR Reviewed date:12/17/2024 03:32:32 PM Interpretation: Performing Lab: Notes/Report: [facility] ,Prothrombin Time11.39.0-11.6 secINR1.07 DESIRED INR: 2.0-3.0 CONDITIONS NOT LISTED BELOW 2.5-3.5 FOR PROSTHETIC HEART VALVE REPLACEMENT 2.5-3.5 RECURRENT THROMBOSIS Performing Lab:see noteML - [facility] LBTroponin I High Sensitivity Reviewed date:12/17/2024 03:32:32 PM Interpretation: Performing Lab: Notes/Report: [facility] ,Troponin I High Tlwnoungwmb47.14.0-51.3 pg/mL CUT-OFF POINTS HAVE BEEN ESTABLISHED BASED ON THE FOURTH UNIVERSAL DEFINITION OF MYOCARDIAL INFARCTION. THE UPPER REFERENCE LIMIT (URL) OF TROPONIN, DEFINED THE 99TH PERCENTILE OF cTnI DISTRIBUTION IN A REFERENCE POPULATION, HAS BEEN CONFIRMED THE DECISION THRESHOLD FOR WI DIAGNOSIS. 99TH PERCENTILE = 51.4 PG/ML NOTE: HIGH-SENSITIVITY TROPONIN ASSAY IS NOT INTENDED TO BE USED IN ISOLATION BUT SHOULD BE INTERPRETED IN CONJUNCTION WITH OTHER DIAGNOSTIC AND CLINICAL INFORMATION. Performing Lab:see noteML - [facility] LBCT CHEST W CON Reviewed date:12/17/2024 03:32:32 PM Interpretation: Performing Lab: Notes/Report: Source Facility: [place] [address] CT Scan Report Signed Patient: ZACHARY MAYNARD MR#: [id number] : 1945 Acct:[id number] Age/Sex: 79 / F ADM Date: 12/17/24 Loc: ER Attending Dr: Ordering Physician: Mago Foreman Date of Service: 12/17/24 Procedure(s): CT chest w con Accession Number(s): [id number] cc: Adina Langley M.D. [place] [address] Patient Name: ZACHARY MAYNARD MRN: [id number]:[id number] date: 1945 Sex: F Assigned Patient Location: ED.MAIN Current Patient Location: ER Accession/Order Number: [id number] Exam Date: 12/17/2024 12:25 Report Date: 12/17/2024 [...] Bonds M.D. 12/17/2024 1:26 PM Dictation Location: [place] [address] Electronically authenticated by: [id number] Y Date: 12/17/2024 13:26 Dictated By: Xavier Bonds M.D. Signed By: 12/17/24 1329 DD/ 1326 TD/TT: Director Of Accounts Receivable:ECG 12 lead Reviewed date:12/18/2024 03:23:11 PM Interpretation: Performing Lab: Notes/Report: Source Facility: [place] [address] [place] [address] Electrocardiograph Report Signed Patient: ZACHARY MAYNARD MR#: [id number] : 1945 Acct:[id number] Age/Sex: 79 / F ADM Date: 12/17/24 Loc: ER Attending Dr: Ordering Physician: Mago Foreman Date of Service: 12/17/24 Procedure(s): ECG 12 lead Accession Number(s): [id number] cc: [facility] Test Date: 2024-12-17 Pat Name: ZACHARY MAYNARD Department: Room: - 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 Measurements Intervals [place] Rate: 51 P: 37 ID: [id number] QRS: 34 QRSD: 88 T: 42 QT: 474 QTc: 450 Interpretive Statements 1100 Sinus rhythm 9110 normal ECG Compared to ECG 02/25/2024 18:58:29 Left ventricular hypertrophy no longer present Left-axis deviation no longer present Electronically Signed On 12-17-2024 17:40:14 EDT by SCHUYLER ROBLERO M.D. Dictated By: SCHUYLER ROBLERO Signed By: 12/17/24 1740 DD/ 1103 TD/TT: Director Of Accounts Receivable:CT abdomen pelvis w con Reviewed date:12/17/2024 03:32:32 PM Interpretation: Performing Lab: Notes/Report: Source Facility: [place] [address] [place] [address] CT Scan Report Signed Patient: ZACHARY MAYNARD MR#: [id number] : 1945 Acct:[id number] Age/Sex: 79 / F ADM Date: 12/17/24 Loc: ER Attending Dr: Ordering Physician: Mago Foreman Date of Service: 12/17/24 Procedure(s): CT abdomen pelvis w con Accession Number(s): [id number] cc: Adina Langley M.D. [place] [id number] Patient Name: ZACHARY MAYNARD MRN: [facility]:[id number] date: 1945 Sex: F Assigned Patient Location: ED.MAIN Current Patient Location: ER Accession/Order Number: [id number] Exam Date: 12/17/2024 12:25 Report Date: 12/17/2024 [...] Bonds M.D. 12/17/2024 1:26 PM Dictation Location: [place] [address] Electronically authenticated by: [id number] Y Date: 12/17/2024 13:26 Dictated By: Xavier Bonds M.D. Signed By: 12/17/24 1330 DD/ 1326 TD/TT: Director Of Accounts Receivable:BNP Reviewed date:12/29/2024 04:52:32 PM Interpretation: Performing Lab: Notes/Report: [facility] ,NT Pro B Type Natriuretic Iuus9316.0<=1800.0 pg/mLRESULTS CALLED TO DR. ESTRADA Performing Lab:see noteML - [facility] LBCBC AUTO DIFF Reviewed date:12/29/2024 04:52:32 PM Interpretation: Performing Lab: Notes/Report: [facility] ,White Blood Count7.44.0-11.0 10 3/uLRed Blood Count3.604.20-5.40 10 6/uL Ltocdibgfe33.812.0-16.0 g/tOCtbnhrgrbi47.736.0-48.0 %Mean Corpuscular Oktdpu33.4 81.0-99.0 fLMean Corpuscular Uwtceilsmo79.026.7-34.0 pgMean Corpuscular HGB Conc 31.129.9-35.2 g/dLRed Cell Distribution Width14.311.0-15.0 %Platelet Pdpeo407 150-450 10 3/uLMean Platelet Kmktrf23.29.5-13.5 fLNeutrophils Percent Auto75.0 43.0-75.0 %Lymphocytes Percent Auto15.220.5-60.0 %Monocytes Percent Auto6.51.7- 12.0 %Eosinophils Percent Auto2.30.9-7.0 %Basophils Percent Auto0.30.2-2.0 % Immature Granulocytes Pct Auto0.70.0-0.5 %Neutrophils Absolute Auto5.61.4-6.5 10 3/uLLymphocytes Absolute Auto1.11.2-3.8 10 3/uLMonocytes Absolute Auto0.50.3- 0.8 10 3/uLEosinophils Absolute Auto0.20.0-0.7 10 3/uLBasophils Absolute Auto0.0 0.0-0.1 10 3/uLImmature Granulocytes Abs Auto0.050.00-0.03 10 3/uLPerforming Lab:see noteML - [facility] LBD-DIMER Reviewed date:12/29/2024 04:52:32 PM Interpretation: Performing Lab: Notes/Report: [facility] ,D Dimer2.02<=0.59 mg/L FEU RESULTS CALLED TO [...] and generalized hospitalization. Performing Lab:see noteML - [facility] LBUA (CLEAN or CATCH) HYDRAULIC LIFT DRIVER or MICRO IF IND. Reviewed date:12/29/2024 04:52:32 PM Interpretation: Performing Lab: Notes/Report: [facility] ,Color UrineLT. YELLOWYELLOWClarity UrineCLEARCLEARSpecific [place] Urine1.010 1.005-1.025pH Urine6.05.0-9.0Protein UrineNEGATIVENEG/TRACE mg/dLGlucose Urine UANEGATIVENEGATIVE mg/dLBilirubin UrineNEGATIVENEGATIVEKetones UrineNEGATIVE NEGATIVE mg/dLBlood UrineNEGATIVENEGATIVENitrite UrineNEGATIVENEGATIVE Urobilinogen Urine1.00.2-1.0 EU/dLLeukocyte Esterase UrineMODERATENEGATIVEUrine Microscopic IndicatedYESPerforming Lab:see noteML - [facility] LB Urine Culture - [facility] Reviewed date:01/02/2025 04:11:00 PM Interpretation: Performing Lab: Notes/Report: [facility] ,Urine Culture - FRMCSee Below For Report Urine Culture - [facility] <9,000 colonies/ml mixed Urine Culture - FRMCbacterial skin contaminants Urine Culture - [facility] <9,000 colonies/ml mixed Urine Culture - [facility]2 Days Urine Culture - [facility] <9,000 colonies/ml mixed Urine Culture - [facility] Urine Culture - [facility] <9,000 colonies/ml mixed Urine Culture - [facility]CTesting [facility] Urine Culture - [facility] <9,000 colonies/ml mixed Urine Culture - [id number] [place] [address] Urine Culture - [facility] <9,000 colonies/ml mixed Performing Lab:see noteML - [facility] LBECG 12 lead Reviewed date:12/30/2024 12:47:51 PM Interpretation: Performing Lab: Notes/Report: Source Facility: [facility] [place] [address] Electrocardiograph Report Signed Patient: ZACHARY MAYNARD MR#: [id number] : 1945 Acct:[id number] Age/Sex: 79 / F ADM Date: 12/29/24 Loc: MS 230-[address]: Nena Barron M.D. 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 Measurements Intervals [place] Rate: 53 P: 259 ID: 134 QRS: -12 QRSD: 84 T: 43 QT: 466 QTc: 450 Interpretive Statements ECTOPIC ATRIAL RHYTHM 9140 abnormal rhythm ECG Compared to ECG 12/17/2024 11:03:35 Ectopic atrial rhythm now present Electronically Signed On 12-30-2024 7:18:29 EST by SCHUYLER ROBLERO M.D. Dictated By: SCHUYLER ROBLERO Signed By: 12/30/24 0718 DD/ 1157 TD/TT: Director Of Accounts Receivable:CT angio chest Reviewed date:12/29/2024 05:27:30 PM Interpretation: Performing Lab: Notes/Report: Source Facility: [place] [address] CT Scan Report Signed Patient: ZACHARY MAYNARD MR#: [id number] : 1945 Acct:[id number] Age/Sex: 79 / F ADM Date: 12/29/24 Loc: ER Attending Dr: Ordering Physician: Jaclyn Estrada Date of Service: 12/29/24 Procedure(s): CT angio chest Accession Number(s): [id number] cc: Adina Langley M.D. [place] [address] Patient Name: ZACHARY MAYNARD MRN: [id number]:[id number] date: 1945 Sex: F Assigned Patient Location: ER Current Patient Location: ER Accession/Order Number: [id number] Exam Date: 12/29/2024 16:00 Report Date: 12/29/2024 [...] Nuñez M.D. 12/29/2024 4:56 PM Dictation Location: [place] [address] Electronically authenticated by: [id number] Y Date: 12/29/2024 16:56 Dictated By: Louie Nuñez D.O. Signed By: 12/29/241658 DD/ 55 TD/TT: Director Of Accounts Receivable:CT stroke head/brain wo con Reviewed date:12/29/2024 04:52:32 PM Interpretation: Performing Lab: Notes/Report: Source Facility: [place] [address] CT Scan Report Signed Patient: ZACHARY MAYNARD MR#: [id number] : 1945 Acct:[id number] Age/Sex: 79 / F ADM Date: 12/29/24 Loc: ER Attending Dr: Ordering Physician: Jaclyn Estrada Date of Service: 12/29/24 Procedure(s): CT stroke head/brain wo con Accession Number(s): [id number] cc: Adina Langley M.D. [place] [address] Patient Name: ZACHARY MAYNARD MRN: [id number] date: 1945 Sex: F Assigned Patient Location: ER Current Patient Location: ED.MAIN Accession/Order Number: [id number] Exam Date: 12/29/2024 12:25 Report Date: 12/29/2024 [...] Dawkins M.D. 12/29/2024 12:41 PM Dictation Location: [place] [address] Electronically authenticated by: [id number] Y Date: 12/29/2024 12:41 Dictated By: Ariel Dawkins M.D. Signed By: 12/29/24 1243 DD/ 1241 TD/TT: Director Of Accounts Receivable:Troponin I High Sensitivity Reviewed date:12/29/2024 04:52:32 PM Interpretation: Performing Lab: Notes/Report: [facility] ,Troponin I High Znbvdrknaaj76.74.0-51.3 pg/mL CUT-OFF POINTS HAVE BEEN ESTABLISHED BASED ON THE FOURTH UNIVERSAL DEFINITION OF MYOCARDIAL INFARCTION. THE UPPER REFERENCE LIMIT (URL) OF TROPONIN, DEFINED THE 99TH PERCENTILE OF cTnI DISTRIBUTION IN A REFERENCE POPULATION, HAS BEEN CONFIRMED THE DECISION THRESHOLD FOR WI DIAGNOSIS. 99TH PERCENTILE = 51.4 PG/ML NOTE: HIGH-SENSITIVITY TROPONIN ASSAY IS NOT INTENDED TO BE USED IN ISOLATION BUT SHOULD BE INTERPRETED IN CONJUNCTION WITH OTHER DIAGNOSTIC AND CLINICAL INFORMATION. Performing Lab:see noteML - [facility] LBMAGNESIUM Reviewed date:12/30/2024 12:47:51 PM Interpretation: Performing Lab: Notes/Report: [facility] ,Magnesium2.01.8-2.4 mg/dLPerforming Lab:see noteML - [facility] LB PROF 14(COMP METB) Reviewed date:12/30/2024 12:47:51 PM Interpretation: Performing Lab: Notes/Report: [facility] ,Nkiapv679908-228 mmol/LPotassium3.53.5-5.1 mmol/VIvipvcpa63317-194 mmol/LCarbon Atnftqp05.921.0-32.0 mmol/LAnion Gap10.1Pfsqblw2845-807 mg/dLBlood Urea Blwzbxuu03.07.0-18.0 mg/dLCreatinine1.080.55-1.02 mg/dLEstimated GFR ( Fvgfqgo99>=60 mL/min/1.73m 2Estimated GFR (Non- Ame49>=60 mL/min/1.73m 2 BUN Creatinine Ratio15.7Tjchjht2.68.5-10.1 mg/dLBilirubin Total0.50.2-1.0 mg/dL Aspartate Amino Flsbxzkvoxa0403-70 U/LAlanine Kekebkafkmjrctsu6201-13 U/L Alkaline Pycojmltwvw04822-219 U/LTotal Protein5.26.4-8.2 g/dLAlbumin Level2.5 3.4-5.0 g/dLGlobulin2.7Albumin Globulin Ratio0.9Performing Lab:see noteML - [facility] LBTSH Reviewed date:12/30/2024 12:47:51 PM Interpretation: Performing Lab: Notes/Report: [facility] ,Thyroid Stimulating Hormone1.9940.358-3.740 uIU/mLPerforming Lab:see noteML - [facility] LBPROF CHEM 8 (BAS METB) Reviewed date:12/31/2024 04:07:24 PM Interpretation: Performing Lab: Notes/Report: [facility] ,Oswojk343075-659 mmol/LPotassium3.53.5-5.1 mmol/VHhvesmaq15867-898 mmol/LCarbon Swqgcbm35.321.0-32.0 mmol/LAnion Gap11.9Qvskthd8249-778 mg/dLBlood Urea Gzinpzld38.07.0-18.0 mg/dLCreatinine1.210.55-1.02 mg/dLEstimated GFR ( Hvnqafh58>=60 mL/min/1.73m 2Estimated GFR (Non- Ame43>=60 mL/min/1.73m 2 BUN Creatinine Ratio15.4Fwtfuwu3.68.5-10.1 mg/dLPerforming Lab:see note - [facility] LBCBC no Diff (Hemogram) Reviewed date:12/31/2024 04:07:24 PM Interpretation: Performing Lab: Notes/Report: [facility] ,White Blood Count5.54.0-11.0 10 3/uLRed Blood Count3.414.20-5.40 10 6/uL Ijelitwjsh91.212.0-16.0 g/qLVqeqitolvg20.536.0-48.0 %Mean Corpuscular Xvcreu25.3 81.0-99.0 fLMean Corpuscular Dbrvrmbbgx16.926.7-34.0 pgMean Corpuscular HGB Conc 31.429.9-35.2 g/dLRed Cell Distribution Width14.811.0-15.0 %Platelet Vjsjw069 150-450 10 3/uLMean Platelet Vgmokp96.49.5-13.5 fLPerforming Lab:see note - [facility] LBPROF CHEM 8 (BAS METB) Reviewed date:01/02/2025 04:11:00 PM Interpretation: Performing Lab: Notes/Report: [facility] ,Rhagic158352-273 mmol/LPotassium3.73.5-5.1 mmol/EMntmscif09035-732 mmol/LCarbon Fgvyltt44.521.0-32.0 mmol/LAnion Gap11.6Suywxtq9735-396 mg/dLBlood Urea Zkwsthzi46.07.0-18.0 mg/dLCreatinine1.520.55-1.02 mg/dLEstimated GFR ( Tyrzbmw93>=60 mL/min/1.73m 2Estimated GFR (Non- Ame33>=60 mL/min/1.73m 2 BUN Creatinine Ratio14.9Woiybmg1.18.5-10.1 mg/dLPerforming Lab:see note - [facility] LBBNP Reviewed date:02/10/2025 12:44:31 PM Interpretation: Performing Lab: Notes/Report: [facility] ,NT Pro B Type Natriuretic Tbbr3698.0<=1800.0 pg/mLRESULTS CALLED TOPerforming Lab:see note - [facility] LBLIPID PROFILE Reviewed date:02/10/2025 12:44:31 PM Interpretation: Performing Lab: Notes/Report: [facility] ,Gxlvnommkminj877<=150 mg/dJUtwzgjqhmxs178<=200 mg/dLHDL Wlqdombrasn8620-42 mg/dL > or =60 mg/dl - LOW CARDIOVASCULAR RISK <40 mg/dl - HIGH CARDIOVASCULAR RISK LDL Cholesterol Yovmuhrxfh48.0 <100 mg/dl OPTIMAL 100-129 mg/dl NEAR OR ABOVE OPTIMAL 130-159 mg/dl BORDERLINE HIGH 160-189 mg/dl HIGH >190 mg/dl VERY HIGH VLDL RVBXYSSSKIM17.6Chol HDL Ratio2.4 3.3 - 4.4 LOW RISK 4.4 - 7.1 AVERAGE RISK 7.1 - 11.0 MODERATE RISK >11.0 HIGH RISK Performing Lab:see note - [facility] LBPROF CHEM 8 (BAS METB) Reviewed date:02/10/2025 12:44:31 PM Interpretation: Performing Lab: Notes/Report: [facility] ,Osynof756603-320 mmol/LPotassium3.03.5-5.1 mmol/FTcoctarw11282-843 mmol/LCarbon Etfrpxu30.321.0-32.0 mmol/LAnion Gap4.0Njzulna54248-910 mg/dLBlood Urea Izixbbzd25.07.0-18.0 mg/dLCreatinine1.190.55-1.02 mg/dLEstimated GFR ( Ofpxzmu19>=60 mL/min/1.73m 2Estimated GFR (Non- Ame44>=60 mL/min/1.73m 2 BUN Creatinine Ratio10.9Xjjwzsq5.78.5-10.1 mg/dLPerforming Lab:see note - [facility] LBSGOT Reviewed date:02/10/2025 12:44:31 PM Interpretation: Performing Lab: Notes/Report: [facility] ,Aspartate Amino Nivaghiuqbn0043-72 U/LPerforming Lab:see note - [facility] LBSGPT Reviewed date:02/10/2025 12:44:31 PM Interpretation: Performing Lab: Notes/Report: [facility] ,Alanine Svtzzkevvtktudkh3657-68 U/LPerforming Lab:see noteML - [facility] LBTSH Reviewed date:02/10/2025 12:44:31 PM Interpretation: Performing Lab: Notes/Report: [facility] ,Thyroid Stimulating Hormone2.3410.358-3.740 uIU/mLPerforming Lab:see noteML - [facility] LBECG 12 lead Reviewed date:12/30/2024 12:47:51 PM Interpretation: Performing Lab: Notes/Report: Source Facility: [facility] [place] [address] [place] [address] Electrocardiograph Report Signed Patient: ZACHARY MAYNARD MR#: [id number] : 1945 Acct:[id number] Age/Sex: 79 / F ADM Date: 12/29/24 Loc: IN 230- Attending Dr: Nena Barron M.D. Ordering Physician: Nena Barron M.D. 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 Measurements Intervals [place] Rate: 60 P: -72 ID: 131 QRS: 0 QRSD: 93 T: 39 QT: 359 QTc: 359 Interpretive Statements NORMAL SINUS RHYTHM SINUS ARRHYTHMIA NONSPECIFIC ST T-WAVE ABNORMALITY ABNORMAL ECG Compared to ECG 12/29/2024 11:57:11 ST T-wave abnormality now present Ectopic atrial rhythm no longer present Electronically Signed On 12-30-2024 7:25:53 EST by SCHUYLER ROBLERO M.D. Dictated By: SCHUYLER ROBLERO Signed By: 12/30/24 0726 DD/ 7 TD/TT: Director Of Accounts Receivable:RINA chest 1V Reviewed date:12/29/2024 04:52:32 PM Interpretation: Performing Lab: Notes/Report: Source Facility: [place] [id number] XRay Report Signed Patient: ZACHARY MAYNARD MR#: [id number] : 1945 Acct:[id number] Age/Sex: 79 / F ADM Date: 12/29/24 Loc: ER Attending Dr: Ordering Physician: Jaclyn Estrada Date of Service: 12/29/24 Procedure(s): XR chest 1V Accession Number(s): [id number] cc: Adina Langley M.D.; Jaclyn Estrada [place] [address] Patient Name: ZACHARY MAYNARD MRN: [id number] date: 1945 Sex: F Assigned Patient Location: ER Current Patient Location: ED.MAIN Accession/Order Number: [id number] Exam Date: 12/29/2024 12:22 Report Date: 12/29/2024 12:37 At the request of: JACLYN ESTRADA MD Procedure: XR chest 1V PA CHEST: CLINICAL HISTORY: sob COMPARISON: CT chest 12/17/2024 Mildly enlarged cardiomediastinal silhouette. Lungs clear. No effusion or pneumothorax. Aortic knob calcification. XR/XR chest 1V IMPRESSION: NEGATIVE ACUTE PLEURAL-PARENCHYMAL DISEASE. Impression dictated by: Ariel Dawkins M.D. 12/29/2024 12:37 PM Dictation Location: [place] [address] Electronically authenticated by: [id number] Y Date: 12/29/2024 12:37 Dictated By: Ariel Dawkins M.D. Signed By: 12/29/24 1240 DD/ 1237 TD/TT: Director Of Accounts Receivable:Troponin I High Sensitivity Reviewed date:12/29/2024 04:52:32 PM Interpretation: Performing Lab: Notes/Report: [facility] ,Troponin I High Bjipnxcpeuk18.54.0-51.3 pg/mL CUT-OFF POINTS HAVE BEEN ESTABLISHED BASED ON THE FOURTH UNIVERSAL DEFINITION OF MYOCARDIAL INFARCTION. THE UPPER REFERENCE LIMIT (URL) OF TROPONIN, DEFINED THE 99TH PERCENTILE OF cTnI DISTRIBUTION IN A REFERENCE POPULATION, HAS BEEN CONFIRMED THE DECISION THRESHOLD FOR WI DIAGNOSIS. 99TH PERCENTILE = 51.4 PG/ML NOTE: HIGH-SENSITIVITY TROPONIN ASSAY IS NOT INTENDED TO BE USED IN ISOLATION BUT SHOULD BE INTERPRETED IN CONJUNCTION WITH OTHER DIAGNOSTIC AND CLINICAL INFORMATION. Performing Lab:see noteML - [facility] LBURINE MICROSCOPIC ONLY Reviewed date:12/29/2024 04:52:32 PM Interpretation: Performing Lab: Notes/Report: [facility] ,WBC Toreg89-56PLAM SEEN #/HPFRBC Urine0-20-2 #/HPFBacteria UrineSMALLNONE SEEN #/HPFMucus UrineSMALLNONE SEENSquamous Epithelial Cell UrineFEWNONE/RARE #/LPF Transitional Epi Cells UrineRARENONE SEEN #/LPFCrystals Seen?None SeenNone Seen #/HPFCast Seen?SEENNONE SEEN #/LPFHyaline Casts UrineRAREUrine Culture Indicated YES-FRMCPerforming Lab:see noteML - [facility] LBPROF 14(COMP METB) Reviewed date:12/29/2024 04:52:32 PM Interpretation: Performing Lab: Notes/Report: [facility] ,Goclup088896-025 mmol/LPotassium3.63.5-5.1 mmol/EZrhiarsx73415-096 mmol/LCarbon Aitkhxt09.721.0-32.0 mmol/LAnion Gap10.6Unaigya13501-162 mg/dLBlood Urea Vgmjpiby08.07.0-18.0 mg/dLCreatinine1.230.55-1.02 mg/dLEstimated GFR ( Hiajlgr35>=60 mL/min/1.73m 2Estimated GFR (Non- Ame42>=60 mL/min/1.73m 2 BUN Creatinine Ratio14.6Wooiqlh1.68.5-10.1 mg/dLBilirubin Total0.40.2-1.0 mg/dL Aspartate Amino Xeshzaaccen7800-51 U/LAlanine Shnpldcysbxxzoza2696-01 U/L Alkaline Vwqzvjgysnd23423-101 U/LTotal Protein5.96.4-8.2 g/dLAlbumin Level2.8 3.4-5.0 g/dLGlobulin3.1Albumin Globulin Ratio0.9Performing Lab:see noteML - [facility] LBCT cervical spine wo con Reviewed date:12/17/2024 03:32:32 PM Interpretation: Performing Lab: Notes/Report: Source Facility: [facility]-[address] [place] [address] [place] [address] CT Scan Report Signed Patient: ZACHARY MAYNARD MR#: [id number] : 1945 Acct:[id number] Age/Sex: 79 / F ADM Date: 12/17/24 Loc: ER Attending Dr: Ordering Physician: Mago Foreman Date of Service: 12/17/24 Procedure(s): CT cervical spine wo con Accession Number(s): [id number] cc: Adina Langley M.D. [place] [address] Patient Name: ZACHARY MAYNARD MRN: [id number] date: 1945 Sex: F Assigned Patient Location: ER Current Patient Location: ER Accession/Order Number: [id number] Exam Date: 12/17/2024 12:25 Report Date: 12/17/2024 [...] Bonds M.D. 12/17/2024 1:10 PM Dictation Location: [place] [address] Electronically authenticated by: [id number] Y Date: 12/17/2024 13:10 Dictated By: Xavier Bonds M.D. Signed By: 12/17/24 1313 DD/ 1310 TD/TT: Director Of Accounts Receivable:CT head/brain wo con Reviewed date:12/17/2024 03:32:32 PM Interpretation: Performing Lab: Notes/Report: Source Facility: [facility]-[address] [place] [address] [place] [address] CT Scan Report Signed Patient: ZACHARY MAYNARD MR#: [id number] : 1945 Acct:[id number] Age/Sex: 79 / F ADM Date: 12/17/24 Loc: ER Attending Dr: Ordering Physician: Mago Foreman Date of Service: 12/17/24 Procedure(s): CT head/brain wo con Accession Number(s): [id number] cc: Adina Langley M.D. [place] [address] Patient Name: ZACHARY MAYNARD MRN: [id number] date: 1945 Sex: F Assigned Patient Location: ED.MAIN Current Patient Location: ER Accession/Order Number: [id number] Exam Date: 12/17/2024 12:25 Report Date: 12/17/2024 [...] Bonds M.D. 12/17/2024 1:10 PM Dictation Location: [place] [address] Electronically authenticated by: [id number] Y Date: 12/17/2024 13:10 Dictated By: Xavier Bonds M.D. Signed By: 12/17/24 1312 DD/ 1310 TD/TT: Director Of Accounts Receivable:CBC AUTO DIFF Reviewed date:12/17/2024 03:32:32 PM Interpretation: Performing Lab: Notes/Report: [facility] ,White Blood Count10.64.0-11.0 10 3/uLRed Blood Count4.194.20-5.40 10 6/uL Bnowlnaeic86.712.0-16.0 g/eWKhyrtjmumj54.836.0-48.0 %Mean Corpuscular Smxhyb14.0 81.0-99.0 fLMean Corpuscular Gafxjcbbki20.326.7-34.0 pgMean Corpuscular HGB Conc 31.929.9-35.2 g/dLRed Cell Distribution Width13.811.0-15.0 %Platelet Zrhcz948 150-450 10 3/uLMean Platelet Bvruix08.29.5-13.5 fLNeutrophils Percent Auto84.2 43.0-75.0 %Lymphocytes Percent Auto9.120.5-60.0 %Monocytes Percent Auto5.11.7- 12.0 %Eosinophils Percent Auto0.00.9-7.0 %Basophils Percent Auto0.10.2-2.0 % Immature Granulocytes Pct Auto1.50.0-0.5 %Neutrophils Absolute Auto9.01.4-6.5 10 3/uLLymphocytes Absolute Auto1.01.2-3.8 10 3/uLMonocytes Absolute Auto0.50.3- 0.8 10 3/uLEosinophils Absolute Auto0.00.0-0.7 10 3/uLBasophils Absolute Auto0.0 0.0-0.1 10 3/uLImmature Granulocytes Abs Auto0.160.00-0.03 10 3/uLPerforming Lab:see noteML - [facility] LBPROF CHEM 8 (BAS METB) Reviewed date:08/23/2024 09:16:19 PM Interpretation: Performing Lab: Notes/Report: [facility] ,Oxvbzt864038-969 mmol/LPotassium4.23.5-5.1 mmol/TCvucvlla70231-563 mmol/LCarbon Henfyag49.721.0-32.0 mmol/LAnion Gap11.8Atuekzf98867-603 mg/dLBlood Urea Oydduzec45.07.0-18.0 mg/dLCreatinine1.250.55-1.02 mg/dLEstimated GFR ( Nnseyux53>=60 mL/min/1.73m 2Estimated GFR (Non- Ame41>=60 mL/min/1.73m 2 BUN Creatinine Ratio32.6Onvegjv3.38.5-10.1 mg/dLPerforming Lab:see noteML - [facility] LBHEMOGLOBIN Reviewed date:08/23/2024 09:16:19 PM Interpretation: Performing Lab: Notes/Report: [facility] ,Aosapzzqek11.612.0-16.0 g/dLPerforming Lab:see note - [facility] LBUrine Culture - [facility] Reviewed date:08/19/2024 07:15:04 PM Interpretation: Performing Lab: Notes/Report: [facility] ,Urine Culture - FRMCSee Below For Report Urine Culture - [facility] <9,000 colonies/ml mixed Urine Culture - FRMCbacterial skin contaminants Urine Culture - [facility] <9,000 colonies/ml mixed Urine Culture - [facility]2 Days Urine Culture - [facility] <9,000 colonies/ml mixed Urine Culture - [facility] Urine Culture - [facility] <9,000 colonies/ml mixed Urine Culture - [facility]CTesting [facility] Urine Culture - [facility] <9,000 colonies/ml mixed Urine Culture - [id number] [place] [address] Urine Culture - [facility] <9,000 colonies/ml mixed Performing Lab:see note - [facility] LBSGPT Reviewed date:07/27/2024 04:20:30 PM Interpretation: Performing Lab: Notes/Report: [facility] ,Alanine Yqviufnvtppehjsx8032-26 U/LPerforming Lab:see note - [facility] LBSGOT Reviewed date:07/27/2024 04:20:30 PM Interpretation: Performing Lab: Notes/Report: [facility] ,Aspartate Amino Xlsjyqhgdpb7759-09 U/LPerforming Lab:see note - [facility] LBLIPID PROFILE Reviewed date:07/27/2024 04:20:30 PM Interpretation: Performing Lab: Notes/Report: [facility] ,Bkhbzlsbktnkv950<=150 mg/mXLvhhkuxhzxo072<=200 mg/dLHDL Mbizzibexqv6387-31 mg/dL > or =60 mg/dl - LOW CARDIOVASCULAR RISK <40 mg/dl - HIGH CARDIOVASCULAR RISK LDL Cholesterol Mingrnolhh47.0 <100 mg/dl OPTIMAL 100-129 mg/dl NEAR OR ABOVE OPTIMAL 130-159 mg/dl BORDERLINE HIGH 160-189 mg/dl HIGH >190 mg/dl VERY HIGH VLDL BYMZYTKOSVM90.2Chol HDL Ratio3.3 3.3 - 4.4 LOW RISK 4.4 - 7.1 AVERAGE RISK 7.1 - 11.0 MODERATE RISK >11.0 HIGH RISK Performing Lab:see note - [facility] LBRT pulmonary function test Reviewed date:07/05/2024 08:47:56 PM Interpretation: Performing Lab: Notes/Report: Source Facility: [place] [address] Respiratory Report Signed Patient: ZACHARY MAYNARD MR#: [id number] : 1945 Acct:[id number] Age/Sex: 79 / F ADM Date: 06/30/24 Loc: CARD Attending Dr: Bhavesh Fulton M.D. Ordering Physician: Bhavesh Fulton M.D. 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 Findings were considered accurate and reproducible with exception of panting maneuvers. Both pre- and post-bronchodilator values utilized for spirometry. Spirometry (based on pre-bronchodilator values): -FEV1/FVC: Reduced @ 58% -FEV1: Normal @ 119% -FVC: Supra-normal @ 149% -MWV41-67%: Reduced @ 67% -There is a partial [...] 07/05/24 1601 07/05/24 1601 DD/ 1247 TD/TT: Director Of Accounts Receivable:US venous doppler UE RT Reviewed date:04/01/2024 07:57:13 AM Interpretation: Performing Lab: Notes/Report: Source Facility: [facility] [place] [address] [place] [address] Ultrasound Report Signed Patient: ZACHARY MAYNARD MR#: [id number] : 1945 Acct:[id number] Age/Sex: 78 / F ADM Date: 03/31/24 Loc: RAD Attending Dr: Adina Langley M.D. Ordering Physician: Adina Langley M.D. Date of Service: 03/31/24 Procedure(s): US venous doppler UE LT Accession Number(s): [id number] cc: Adina Langley M.D. [place] [address] Patient Name: ZACHARY MAYNARD MRN: [id number] date: 1945 Sex: F Assigned Patient Location: [facility] Current Patient Location: Accession/Order Number: [id number] Exam Date: 03/31/2024 16:27 Report Date: 04/01/2024 [...] Signed By: 04/01/24 0738 DD/ 0735 TD/TT: Director Of Accounts Receivable:ECG 12 lead Reviewed date:02/29/2024 05:39:19 PM Interpretation: Performing Lab: Notes/Report: Source Facility: [place] [address] Electrocardiograph Report Signed Patient: ZACHARY MAYNARD MR#: [id number] : 1945 Acct:[id number] Age/Sex: 78 / F ADM Date: 02/25/24 Loc: ER Attending Dr: Ordering Physician: Valentina Guzman Date of Service: 02/25/24 Procedure(s): ECG 12 lead Accession Number(s): [id number] cc: [facility] Test Date: 2024-02-25 Pat Name: ZACHARY MAYNARD Department: Room: - Gender: Female 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 Signed By: 02/28/24 0811 DD/ 1858 TD/TT: Director Of Accounts Receivable:Prothrombin Time INR Reviewed date:02/29/2024 05:39:20 PM Interpretation: Performing Lab: Notes/Report: [facility] ,Prothrombin Time11.19.0-11.6 secINR1.05 DESIRED INR: 2.0-3.0 CONDITIONS NOT LISTED BELOW 2.5-3.5 FOR PROSTHETIC HEART VALVE REPLACEMENT 2.5-3.5 RECURRENT THROMBOSIS Performing Lab:see noteML - [facility] LBCBC AUTO DIFF Reviewed date:02/29/2024 05:39:20 PM Interpretation: Performing Lab: Notes/Report: [facility] ,White Blood Count5.04.0-11.0 10 3/uLRed Blood Count3.154.20-5.40 10 6/uL Hemoglobin8.812.0-16.0 g/qMLypghtxlqh26.436.0-48.0 %Mean Corpuscular Eedlcy72.2 81.0-99.0 fLMean Corpuscular Xohvcqmglh90.926.7-34.0 pgMean Corpuscular HGB Conc 31.029.9-35.2 g/dLRed Cell Distribution Width16.911.0-15.0 %Platelet Xpbfr869 150-450 10 3/uLMean Platelet Ilxdyb56.89.5-13.5 fLNeutrophils Percent Auto53.7 43.0-75.0 %Lymphocytes Percent Auto28.920.5-60.0 %Monocytes Percent Auto8.91.7- 12.0 %Eosinophils Percent Auto7.50.9-7.0 %Basophils Percent Auto0.60.2-2.0 % Immature Granulocytes Pct Auto0.40.0-0.5 %Neutrophils Absolute Auto2.71.4-6.5 10 3/uLLymphocytes Absolute Auto1.41.2-3.8 10 3/uLMonocytes Absolute Auto0.40.3- 0.8 10 3/uLEosinophils Absolute Auto0.40.0-0.7 10 3/uLBasophils Absolute Auto0.0 0.0-0.1 10 3/uLImmature Granulocytes Abs Auto0.020.00-0.03 10 3/uLPerforming Lab:see noteML - [facility] LBPROF CHEM 8 (BAS METB) Reviewed date:02/16/2024 07:54:36 PM Interpretation: Performing Lab: Notes/Report: [facility] ,Ntrmdm687356-266 mmol/LPotassium4.93.5-5.1 mmol/XOkpszokh12445-305 mmol/LCarbon Cpyafik42.021.0-32.0 mmol/LAnion Gap12.9Zhdsmrz16903-027 mg/dLBlood Urea Kkqatetv45.07.0-18.0 mg/dLCreatinine1.780.55-1.02 mg/dLEstimated GFR ( Iuqpwqy35>=60 mL/min/1.73m 2Estimated GFR (Non- Ame27>=60 mL/min/1.73m 2 BUN Creatinine Ratio11.1Ckrupid9.28.5-10.1 mg/dLPerforming Lab:see noteML - [facility] LBCBC AUTO DIFF Reviewed date:08/16/2024 06:39:10 PM Interpretation: Performing Lab: Notes/Report: [facility] ,White Blood Count7.34.0-11.0 10 3/uLRed Blood Count3.874.20-5.40 10 6/uL Ytffyhnnhm50.412.0-16.0 g/yKRvdhhxcepj84.836.0-48.0 %Mean Corpuscular Gwbkus72.5 81.0-99.0 fLMean Corpuscular Trwjrpdeyg31.526.7-34.0 pgMean Corpuscular HGB Conc 31.829.9-35.2 g/dLRed Cell Distribution Width16.911.0-15.0 %Platelet Vzxme852 150-450 10 3/uLMean Platelet Lcacnh51.69.5-13.5 fLNeutrophils Percent Auto64.5 43.0-75.0 %Lymphocytes Percent Auto23.820.5-60.0 %Monocytes Percent Auto7.81.7- 12.0 %Eosinophils Percent Auto3.10.9-7.0 %Basophils Percent Auto0.30.2-2.0 % Immature Granulocytes Pct Auto0.50.0-0.5 %Neutrophils Absolute Auto4.71.4-6.5 10 3/uLLymphocytes Absolute Auto1.71.2-3.8 10 3/uLMonocytes Absolute Auto0.60.3- 0.8 10 3/uLEosinophils Absolute Auto0.20.0-0.7 10 3/uLBasophils Absolute Auto0.0 0.0-0.1 10 3/uLImmature Granulocytes Abs Auto0.040.00-0.03 10 3/uLPerforming Lab:see noteML - [facility] LBBNP Reviewed date:08/16/2024 07:19:28 PM Interpretation: Performing Lab: Notes/Report: [facility] ,NT Pro B Type Natriuretic Wfle7309.0<=1800.0 pg/mLRESULTS CALLED TO DR. LANGLEY Performing Lab:see noteML - [facility] LBCBC no Diff (Hemogram) Reviewed date:12/30/2024 12:47:51 PM Interpretation: Performing Lab: Notes/Report: [facility] ,White Blood Count5.84.0-11.0 10 3/uLRed Blood Count3.414.20-5.40 10 6/uL Hemoglobin9.912.0-16.0 g/xCJetajfjwag26.036.0-48.0 %Mean Corpuscular Esriog84.8 81.0-99.0 fLMean Corpuscular Eyuxclhjgb17.026.7-34.0 pgMean Corpuscular HGB Conc 30.929.9-35.2 g/dLRed Cell Distribution Width14.611.0-15.0 %Platelet Fdppo560 150-450 10 3/uLMean Platelet Oclryg77.49.5-13.5 fLPerforming Lab:see noteML - [facility] LB Reason For Referral Diagnosis 1 Weakness (R53.1) Referral Organization [facility] Referring Provider First Name Enio Referring Provider Last Name Korin Referring Provider [facility] Referred Provider [facility], Physical Therap y Referred Provider Specialty Physical The rapist Referral Priority Routine Reason Unable to do PFT due to Passing out Diagnosis 1 Asthma (J45.909) Referral Organization [facility] Referring Provider First Name Enio Referring Provider Last Name Korin Referring Provider [facility] Referred Provider Zev Tirado Referred Provider Specialty Pulmonology Referral Priority Routine Medications Medication SIG (Take, Route, Frequency, Duration) Notes Start Date End Date Status Albuterol Sulfate HFA 108 (9 0 Base) MCG/ACT USE 2 INHALATIONS BY MOUTH 3 TIMES DAILY ; Duration: 90 ActiveAdbry 300 MG/2MLas directed Hgradpejvayo58/18/2025ActiveFurosemide 20 MG1 tablet Orally twice a day; [...] using the HandiHaler device Inhalation Once a xzdNFN765ActiveCarvedilol 6.25 MG1 tablet with food Orally Twice a day5ActiveMeclizine HCl 25 MGTAKE 1-2 TABLETS BY MOUTH THREE TIMES A DAY NEEDED.; Duration: 15ActiveEliquis 5 MGTAKE 1 TABLET BY MOUTH TWICE A DAY; Duration: 30ActiveRepatha SureClick 140 MG/MLas directed Oxunecwihynx64/08/2025ActiveAmiodarone HCl 200 MG1 tablet Orally Once a day ActiveLiothyronine Sodium 5 MCGTAKE 2 TABLETS ON AN EMPTY STOMACH ORALLY ONCE A DAY 30 DAYS; Duration: 90 daysActivePreserVision AREDS 2ActiveBreztri Aerosphere 160-9-4.8 MCG/ACT2 puffs Inhalation Twice a day01/05/2025tiveCeleXA 20 MG1 tablet Orally Once a day; Duration: 30 days12/28/2024tivePlavix 75 MG1 tablet Orally Once a day08/31/2024tiveamLODIPine Besylate 2.5 MG1 tablet Orally Once a day01/05/2025tiveProtonix 40 MG1 tablet Orally Once a day; Duration: 30 days 5Active Immunizations Vaccine Route Administration Date Status Comme nts Flu, Fluad (2780-0159) (75800) 65 yrs+, single-dose syringe IM Intramuscular 12/25/2022 Administered Flu, Fluad (95001) 65 yrs and older, single-dose syringe (0122-7521)IM Qlrlcfekxtihf65/14/2024dministeredFlu, Fluad (07050) 65 yrs and older, single- dose syringe (0985-8801)IM Vkvggjknewfrs75/22/2025Administered Social History Tobacco Use: Social History Observation Description Date Details (start date - stop date) Former Smoker NA - 02/24/2010 Tobacco Use/Smoking Question Answer Notes Patient is a former smoker When did you stop smoking?02/24/2010lcohol Screen (Audit-C) Question Answer Notes Did you have a drink containing alcohol in the p ast year? No Pjptst3AnqhuouxanuouzZrtkeiadHVPKY-X (Standard) Question Answer Notes Did you have a drink containing alcohol in the p ast year? No Bbuzok3WmnuurqfaswazkCzmgsaxg Problems Problem Type SNOMED Code ICD Code Onset Dates Problem Status W/U Status Risk Notes Problem Essential hypertension (48768969 ) Essential (primary) hypertension (I10) ActiveconfirmedProblemSyncope and collapse (829362099)Syncope and collapse (R55) ActiveconfirmedProblemTinea corporis (62283795)Tinea corporis (B35.4)Active confirmedProblemBenign neoplasm of meninges (210612090)Benign neoplasm of meninges, unspecified (D32.9)ActiveconfirmedProblemDiabetic peripheral neuropathy associated with type 2 diabetes mellitus (9161015479297)Type 2 diabetes mellitus with diabetic neuropathy, unspecified (E11.40)Activeconfirmed ProblemDrug-induced myopathy (659236968)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)Active confirmedProblemBlepharochalasis (56822940)Blepharochalasis unspecified eye, 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)ActiveconfirmedProblemVentricular fibrillation (53461437)Ventricular fibrillation (I49.01)ActiveconfirmedProblemUncomplicated asthma (disorder) (857537082)Unspecified asthma, uncomplicated (J45.909)Active confirmedProblemDiverticula of intestine (19957486)Diverticulosis of intestine, part unspecified, without perforation or abscess without bleeding (K57.90)Active confirmedProblemConstipation (52974792)Constipation, unspecified (K59.00)Active confirmedProblemVesicular eczema (disorder) (515798658)Dyshidrosis [pompholyx] (L30.1)ActiveconfirmedProblemPain of right shoulder region (finding) (5416819522)Pain in right shoulder (M25.511)ActiveconfirmedProblemPolymyalgia rheumatica (19089923)Polymyalgia rheumatica (M35.3)ActiveconfirmedProblemMuscle weakness (17796207)Muscle weakness (generalized) (M62.81)ActiveconfirmedProblem Fibromyalgia (637410583)Fibromyalgia (M79.7)ActiveconfirmedProblemDisorder of bone (74890415)Other specified disorders of bone density and structure, unspecified site (M85.80)ActiveconfirmedProblemArteriovenous malformation (72425942)Arteriovenous malformation, site unspecified (Q27.30)Activeconfirmed ProblemSpasm (10044544)Cramp and spasm (R25.2)ActiveconfirmedProblemFrequency of micturition (099567161)Frequency of micturition (R35.0)ActiveconfirmedProblem Localized edema (5355452)Localized edema (R60.0)ActiveconfirmedProblemOther injury of muscle, fascia and tendon of lower back, initial encounter (S39.092A) ActiveconfirmedProblemPostmenopausal state (64783471)Asymptomatic menopausal state (Z78.0)ActiveconfirmedProblemAtrial fibrillation (73665531)Atrial fibrillation (I48.91)ActiveconfirmedProblemHypertension (47326320)Hypertension (I10)ActiveconfirmedProblemOsteoarthritis (048028638)Osteoarthritis (M19.90) ActiveconfirmedProblemAsthma (359365741)Asthma (J45.909)ActiveconfirmedProblem Gastroesophageal reflux disease (169646468)GERD (gastroesophageal reflux disease) (K21.9)ActiveconfirmedProblemAtrial fibrillation (disorder) (70322601) Afib (I48.91)ActiveconfirmedProblemHypothyroid (91370059)Hypothyroid (E03.9) ActiveconfirmedProblemArteriovenous malformation (59377170)Arterio-venous malformation (Q27.30)ActiveconfirmedProblemOsteopenia (237983653)Osteopenia (M85.80)ActiveconfirmedProblemDyspnea (966030820)Dyspnea (R06.00)Activeconfirmed ProblemVertigo (747612251)Vertigo (R42)ActiveconfirmedProblemEczema (82255764) Eczema (L30.9)ActiveconfirmedProblemSinus tachycardia (16827222)Sinus tachycardia (R00.0)ActiveconfirmedProblemPain of right knee region (finding) (112196305544646)Knee pain, right (M25.561)ActiveconfirmedProblemEdema (964934135)Edema leg (R60.0)ActiveconfirmedProblemAcute bronchitis (60556019) Acute bronchitis (J20.9)ActiveconfirmedProblemVaricose veins (317423431)Varicose veins (I86.8)ActiveconfirmedProblemHypoglycemia (432985528)Hypoglycemia (E16.2) ActiveconfirmedProblemDiverticulitis (68218798)Diverticulitis (K57.92)Active confirmedProblemChronic diastolic heart failure (632923485)Chronic diastolic heart failure (I50.32)ActiveconfirmedProblemPlantar fasciitis (512141978)Plantar fasciitis (M72.2)ActiveconfirmedProblemBenign neoplasm of cerebral meninges (55288563)Meningioma (D32.9)ActiveconfirmedProblemNear syncope (312762439)Near syncope (R55)ActiveconfirmedProblemGallstones (361827838)Gallstones (K80.20) ActiveconfirmedProblemRight upper quadrant pain (958277914)Right upper quadrant abdominal pain (R10.11)ActiveconfirmedProblemGastroenteritis (31723255) Gastroenteritis (K52.9)ActiveconfirmedProblemEasy bruising (471368730)Easy bruisability (R23.8)ActiveconfirmedProblemOverweight (565149158)Over weight (E66.3)ActiveconfirmedProblemDyshidrotic eczema (994806420)Dyshidrotic eczema (L30.1)ActiveconfirmedProblemNevus (6135258290)Nevus (D22.9)Activeconfirmed ProblemCervical strain (439400252)Cervical strain (S16.1XXA)Activeconfirmed ProblemDiverticular disease (770987966)Diverticular disease (K57.90)Active confirmedProblemAcute bronchiolitis (9662269)Acute bronchiolitis (J21.9)Active confirmedProblemCramp in lower limb (609216447)Leg cramp (R25.2)Activeconfirmed ProblemPruritic disorders (639429777)Pruritic condition (L29.9)Activeconfirmed ProblemChronic obstructive pulmonary disease (03595180)Advanced COPD (J44.9) ActiveconfirmedProblemAcute cystitis (55349258)Acute cystitis (N30.00)Active confirmedProblemAcute urinary tract infection (584342505)Acute UTI (N39.0)Active confirmedProblemDiabetic peripheral neuropathy associated with type 2 diabetes mellitus (0080552609223)Neuropathy, diabetic (E11.40)ActiveconfirmedProblem Dementia (99874127)Advanced dementia (F03.90)ActiveconfirmedProblemAt risk for falls (552030487)At risk for falls (Z91.81)ActiveconfirmedProblemBenign mammary dysplasia (33432086)Benign mammary dysplasia (N60.99)ActiveconfirmedProblemAcute heart failure (43702267)Acute heart failure (I50.9)ActiveconfirmedProblem Essential hypertension (19199030)BP (high blood pressure) (I10)Activeconfirmed ProblemPure hypercholesterolemia (591535825)Pure hypercholesterolemia, unspecified (E78.00)ActiveconfirmedProblemType II diabetes mellitus without complication (849406119)Diabetes (E11.9)ActiveconfirmedProblemDiabetes mellitus (21808933)Diabetes mellitus (E11.9)ActiveconfirmedProblemChronic kidney disease stage 3A (disorder) (994853822)Chronic kidney disease, stage 3a (N18.31)Active confirmedProblemLow back pain (436493923)Low back pain, unspecified (M54.50) Activeconfirmed Vital Signs Heart Rate 52 /min 01/05/2025 Pfjljktxzoy95.2 degrees Hxpaptompp43/31/3544Cqfgejup99 %01/05/2025lood pressure pmhlherhu28 mm Hg01/05/20256564Sjsovx76 in01/05/2025lood pressure pufnpfyk914 mm Hg01/05/20259388Rtjrue886.2 lbs103/07/2024BMI28.38 kg/m201/05/2025 Procedures Procedure Date Ordered Date Performed Result Body Sit e Echocardiogram 08/16/2024 N/AHolter Monitor - 3 days up to 14 days12/20/2024N/A*CARDIO Stress Test - Lexiscan Gogpazf0412/20/2024N/A Encounters Encounter Location Date Provider Diagnosis [facility] [address] [place] [address] 03/26/2024 Enio Hoy Diverticulitis K57.9 2 [facility] [address] [place] [facility] [address] 05/28/2024 Enio Hoy Acute bronchiolitis J21.9 [facility] [address] [place] [address] 07/21/2024 Enio Hoy Burning with urinati on R30.0 ; Pain in right shoulder M25.511 and Acute UTI N39.0 [facility] [address] [place] [address] 10/26/2024 Enio Hoy [address] [place] [address] 12/20/2024Doug HoyNear syncope [address] [place] [address]/01/2025Doug HoyDyspnea R06.00 ; Asthma J45.909 ; GERD (gastroesophageal reflux disease) K21.9 and Hypertension [address] [place] [address]/09/2024 Enio HoyAdvanced COPD J44.9 ; Acute heart failure I50.9 ; Ventricular fibrillation I49.01 ; Neuropathy, diabetic E11.40 ; Type 2 diabetes mellitus with diabetic neuropathy, unspecified E11.40 ; Atrial fibrillation I48.91 and Afib I48.91[address] [place] [address]/Doug HoyEssential (primary) hypertension [address]htn[address] [place] [address]/Doug HoyUTI (urinary tract infection) N39.0 ; Advanced dementia F03.90 ; Chronic kidney disease, stage 3a N18.31 ; Tinea corporis B35.4 and Dyspnea R06.00[address] [place] [address]/09/2024 Enio HoyRight upper quadrant abdominal pain R10.11 and Weakness R53.1[address] [place] [address]/ Enio HoyType 2 diabetes mellitus with diabetic neuropathy, unspecified E11.40 ; Afib I48.91 ; Hypothyroid E03.9 ; Essential (primary) hypertension I10 ; Diabetes E11.9 ; Acute UTI N39.0 and Dysuria R30.0[facility] [place] [facility] [address]/Doug HoyAcute non- recurrent sinusitis, unspecified location J01.90 ; Nasal congestion R09.81 and Encounter for immunization T02DfrvtowThe [facility] [place] [facility] [place] [address]/06/2024Doug [facility] [place] [facility] [place] [address]/08/2024Doug [facility] [place] [facility] [place] [address]/11/2024Doug HoyEssential (primary) hypertension I10BVH [facility] [place] [address]/Doug [facility] [place] [facility] [address]/Doug [facility] [address] [place] [facility] [address]/Doug HoyGallstones K80.20 [facility] [place] [facility] [address] 10/20/2024Doug [facility] [place] [facility] [place] [address]/03/2024Doug [facility] [place] [place] [address]/Doug HoyBVScl [facility] [facility] [place] [address]/Doug HoyAcute non-recurrent sinusitis, unspecified location J01.90[facility] [place] [address]/06/2024Doug [facility] [place] [address]/01/2025Doug [facility] [facility] [place] [address]/01/2025[facility] [place] [address] 08/16/2024Doug HoyHypothyroid E03.9 ; Acute heart failure I50.9 and SOB (shortness of breath) R06.02[facility] [place] [address]/Doug [facility] [place] [address]/Doug [facility] [address] [place] [address]/[facility] [place] [address]/06/2024Doug Hoy Left arm pain M79.602[facility] [facility] [place] [address]/07/2024Doug HoyLeft wrist pain M25.532[facility] [place] [address]/08/2024Doug y [facility] [place] [address] 04/22/2024Doug [facility] [place] [address]/05/2024Doug HoyAcute bronchiolitis J21.9BPark[facility] [place] [address]/Doug [facility] [place] [address]/ Enio [facility] [facility] [place] [address]/oug [facility] [facility] [place] [address]/Doug [facility] [facility] [place] [address]/[facility] [facility] [place] [address]/Doug [facility] [place] [facility] [address]/04/2024 Enio Langley Assessments Encounter Date Diagnosis (ICD Code) Assessment Notes Treatment Notes Treatment Clinical Notes Section Notes 03/08/2024 Essential (primary) hypertension (ICD-10 - I10) fatigue an hypotension -near syncope - stiopping nydemlcyk74/31/2025 Diverticulitis (ICD-10 - K57.92)05/28/2024ute bronchiolitis (ICD-10 - J21.9) 07/21/2024Pain in right shoulder (ICD-10 - M25.511)07/21/2024urning with urination (ICD-10 - R30.0)03/03/2024dvanced COPD (ICD-10 - J44.9)08/16/2024UTI (urinary tract infection) (ICD-10 - N39.0)chekcing urine culer and urnifro oaapkdd7408/16/2024dvanced dementia (ICD-10 - F03.90)memory part pretty stable no argument from dosgccw0408/31/2024Weakness (ICD-10 - R53.1)08/31/2024Right upper quadrant abdominal pain (ICD-10 - R10.11)10/20/2024Type 2 diabetes mellitus with diabetic neuropathy, unspecified (ICD-10 - E11.40)10/20/2024fib (ICD-10 - I48.91)rate jofvymisk80/22/2025Acute non-recurrent sinusitis, unspecified location (ICD-10 - J01.90)Rest and drink more liquids, especially water. You may use a humidifier or vaporizer to help keep the drainage moist. Tfox-pgb-ghsbuem Nasal Saline may help the stuffy and runny nose. Use Ibuprofen and or Tylenol as needed for fever, chills, body aches or pain. Children 5 years old should not be given zeby-xcj-sqxhacz cough and cold medications such as guaifenesin and dextromethorphan. If you're over age 5, you may try xmrq-djd-ofmasfz cold medications such as guaifenesin and dextromethorphan, [...] if symptoms do not improve within 3-5 days12/20/2024Near syncope (ICD-10 - R55)01/05/2025Dyspnea (ICD-10 - R06.00) 03/31/2024Left arm pain (ICD-10 - M79.602)04/01/2024Left wrist pain (ICD-10 - M25.532)5Acute bronchiolitis (ICD-10 - J21.9)08/16/2024Hypothyroid (ICD-10 - E03.9)5Acute heart failure (ICD-10 - I50.9)09/09/2024 Gallstones (ICD-10 - K80.20)5Acute non-recurrent sinusitis, unspecified location (ICD-10 - J01.90)01/03/2025Essential (primary) hypertension (ICD-10 - I10)01/05/2025sthma (ICD-10 - J45.909) setting up with pulmonology adding lukei 01/05/2025GERD (gastroesophageal reflux disease) (ICD-10 - K21.9)08/16/2024SOB (shortness of breath) (ICD-10 - R06.02)12/15/2024Nasal congestion (ICD-10 - R09.81)10/20/2024Hypothyroid (ICD-10 - E03.9)ecopuraged to take ,med03/03/2024 Acute heart failure (ICD-10 - I50.9)seein /23/2025hronic kidney disease, stage 3a (ICD-10 - N18.31)checing uirn protien and bun creat today 07/21/2024ute UTI (ICD-10 - N39.0)03/03/2024Ventricular fibrillation (ICD-10 - I49.01)08/16/2024Tinea corporis (ICD-10 - B35.4)wgurviyapgpa35/27/2025Essential (primary) hypertension (ICD-10 - I10)up - adjusting meds1Encounter for immunization (ICD-10 - Z23)01/05/2025Hypertension (ICD-10 - I10)10/20/2024 Diabetes (ICD-10 - E11.9)zhihwpn1403/03/2024Neuropathy, diabetic (ICD-10 - E11.40) 03/03/2024Type 2 diabetes [...] RANDOM URINE PROTEIN 08/16/2024 UA (URINALYSIS), COMPLETE (92745) - IN O FFICE 08/30/2022 GLUCOSE - [...] [employer] [address] [address] [place], [place] [id number] Zachary Maynard Self - patient is the insured 3 [employer]ARE MEDICAREPO [address] [address] [place], [place] [phone] [id number] Maynard - patient is the insured Medications Administered Medication Instructions Date of Administration Dosage Notes Dexamethasone, 4mg/mL mg8 mgDexamethasone, 4mg/mL mg8 mgDexamethasone, 4mg/mL mgDexamethasone, 4mg/mL mgKenalog-4000 mg80 mg Kenalog-400 ec679Rdhbhbk-9278/23/202380 bp53Ewkhfytol Tromethamine vl99Tcpmaakiphdnu 40 mg/ml0 mg Medical (General) History Medical [...] Diverticular disease K57.90 Surgical History Surgery Date(Month/Year) Hysterectomy Right Long Finger and ring fingerreast Cyst removedBilateral Foot Surgery Cardiac cath12/17Aorta Patch- stents to kidney and bowelHospitalization History Reason Date(Month/Year) [facility] 2024 Aorta Patch 01/2024 A-fib 12/17 sepsis 2019
--- OUTSIDE RECORDS SUMMARY | 2025-02-15 13:07 | XMS_ITS | Clinical Summary ---
Author Organization [employer] [facility] tem Address [id number] [place] [address] Care Team Providers Care Drawing In Machine Tender Name Role Phone Velasquez Langley MD Primary Care Provider [phone] Allergies Active AllergyReactionsCriticalityNoted HbumKbyosdilPnogndlouniw95/22/2019 Xzeqemzhsrupi00/22/8995Wkuaeyzsjx50/22/6444Nskjvqlwvk83/22/2019Promethazine 10/15/20184181Wzsxhfc-Zyn-Dnr Reductase Vfpkvhbsea67/22/2019Sulfa (Sulfonamide Antibiotics)10/15/2018 Medications MedicationSigDispense QuantityRefillsLast FilledStart DateEnd DateStatus ezetimibe (ZETIA) 10 mg tablet Take 10 mg by mouth daily.Active irbesartan (AVAPRO) 300 mg tablet Take 300 mg by mouth nightly.Active metoprolol tartrate (LOPRESSOR) 50 mg tablet Take 100 mg by mouth 2 (two) times a day.Active Social History Tobacco UseTypesPacks/DayYears UsedDateSmoking Tobacco: FormerSmokeless Tobacco: NeverChildcareAnswerDate TnqeodqaTyuvbvjogCqioxio81/12/2019EmploymentAnswerDate EytqpeuvSmhcpfbswfKfetohj53/12/2019Purpose - LifeAnswerDate RecordedPurpose and direction in qhywHutnzva70/11/2021CommentsNoSex and Gender Information ValueDate RecordedSex Assigned at BirthNot on fileLegal VytRdkdju22/06/2015 11:42 AM EDTGender IdentityNot on fileSexual OrientationNot on file Last Filed Vital Signs Vital SignReadingTime TakenCommentsBlood Wexuljna902/7708 10:41 PM EDT Ibgxw3845 10:41 PM KZDRleogfhshiw08.7 ??C (98 ??F)10/15/2018 10:41 PM EDTRespiratory Qblm999310/15/2018 10:41 PM EDTOxygen Djxojemfxg86%10/15/2018 8:09 PM EDTInhaled Oxygen Concentration--Liznvr33.8 kg (165 lb)10/15/2018 7:26 PM EDT Brfiel640.6 cm (5' 4 )10/15/2018 7:26 PM EDTBody Mass Index28.32010/15/2018 7:26 PM EDT Plan of Treatment Health MaintenanceDue DateLast DoneCommentsDepression Etlnmclqe88/30/1956Tobacco Oovmolzqk05/30/1956DTaP,Tdap and Td Vaccines (1 - Tdap)05/23/1962Zoster (Shingles) Vaccine (1 of 2)05/23/1993Fall Risk Tbzsrdoqe51/30/2009RSV ( or age 60+ yrs) (1 - 1-dose 75+ series)05/23/2018Influenza Gvrygqd8110/25/2024 Medical Devices Not on file Insurance Care Teams Team MemberRelationshipSpecialtyStart Date Velasquez Langley MD PCP - GeneralFamily Medicine10/15/18
== END 2025-02-15 13:03 | disposition home or self-care (01) ==
LOC: CARD 13:04
PROVIDERS: PCP Family Medicine; Visit Provider Internal Medicine Cardiovascular Disease
DX: R06.02 Shortness of breath (principal)
CPT/HCPCS: 94618